=== PATIENT | female | born 1970 | race American Indian/Alaskan Native ===

== ENCOUNTER 2016-09-22 14:14 | Inpatient (IN) | payer OTHER, SELFPAY ==
[~2016-09-22 14:14] MED LIST: NACL 0.9% 1000 ML 1,000 ML ONE; ZOFRAN ONE
[2016-09-22] MEDS ORDERED: NACL 0.9% 1000 ML 1,000 ML IV ONE ×3 (14:30→15:22)
[2016-09-22] MEDS ORDERED: ZOFRAN IV ONE (14:33)
--- NOTE | 2016-09-22 14:34 | Emergency Department Report ---
ED Altered Mental Status HPI - General Chief Complaint: Hyperglycemia Stated Complaint: UNRESPONSIVE Time Seen by Provider: 09/22/16 14:28 Source: EMS Mode of arrival: Stretcher Limitations: Altered Mental Status - History of Present Illness MD Complaint: altered mental status, confusion, decreased responsiveness, weakness Onset/Timin -: Gradual, days(s) Severity: severe Consistency of Symptoms: constant Context: alcohol abuse, diabetes Associated Symptoms: malaise, nausea/vomiting. denies: chest pain, cough, diaphoresis, fever/chills, headaches, rash, seizure, shortness of breath, syncope, foul smelling urine, difficulty walking Treatments Prior to Arrival: IV fluid - Related Data Home Medications Medication Instructions Recorded Confirmed Last Taken Insulin NPH/Regular [Novolin 70/30] 10 unit SQ BIDDIAB 03/26/14 03/26/14 Previous Rx's Medication Instructions Recorded Last Taken Type Insulin NPH/Regular [NovoLIN 70/30] 30 unit SUB-Q BIDDIAB #7 ml 03/31/14 Unknown Rx Lisinopril [Zestril TAB] 10 mg PO QDAY #30 tablet 03/31/14 Unknown Rx Allergies Allergy/AdvReac Type Severity Reaction Status Date / Time No Known Allergies Allergy Verified 03/26/14 03:17 ED Review of Systems ROS: Stated complaint: UNRESPONSIVE Other details as noted in HPI Comment: Unobtainable due to pts medical conditions Constitutional: denies: chills, fever Eyes: denies: eye pain, eye discharge, vision change ENT: denies: ear pain, throat pain Respiratory: denies: cough, shortness of breath, wheezing Cardiovascular: denies: chest pain, palpitations Endocrine: no symptoms reported Gastrointestinal: denies: abdominal pain, nausea, diarrhea Genitourinary: denies: urgency, dysuria, discharge Musculoskeletal: denies: back pain, joint swelling, arthralgia Skin: denies: rash, lesions Neurological: denies: headache, weakness, paresthesias Psychiatric: denies: anxiety, depression Hematological/Lymphatic: denies: easy bleeding, easy bruising ED Past Medical Hx - Past Medical History Hx Hypertension: Yes Hx Congestive Heart Failure: No Hx Diabetes: Yes Hx Sickle Cell Disease: No Hx Asthma: No Hx COPD: No Hx HIV: No - Social History Smoking Status: Never Smoker - Medications Home Medications: Home Medications Medication Instructions Recorded Confirmed Last Taken Type Insulin NPH/Regular [Novolin 70/30] 10 unit SQ BIDDIAB 03/26/14 03/26/14 History Insulin NPH/Regular [NovoLIN 70/30] 30 unit SUB-Q BIDDIAB #7 ml 03/31/14 Unknown Rx Lisinopril [Zestril TAB] 10 mg PO QDAY #30 tablet 03/31/14 Unknown Rx ED Physical Exam - General Limitations: Altered Mental Status General appearance: lethargic, obtunded, in distress - Head Head exam: Present: atraumatic - Eye Eye exam: Present: normal appearance, PERRL - ENT ENT exam: Present: mucous membranes dry - Neck Neck exam: Present: normal inspection - Respiratory Respiratory exam: Present: normal lung sounds bilaterally. Absent: respiratory distress, wheezes, rales, rhonchi, chest wall tenderness, accessory muscle use, decreased breath sounds - Cardiovascular Cardiovascular Exam: Present: tachycardia - GI/Abdominal GI/Abdominal exam: Present: soft, tenderness. Absent: distended, guarding, rebound, rigid - Back Exam Back exam: Present: normal inspection - Skin Skin exam: Present: dry ED Course Vital Signs 09/22/16 09/22/16 09/22/16 14:13 14:20 14:25 Temperature 91.6 F L Pulse Rate 106 H 106 H Respiratory 20 23 31 H Rate Blood Pressure 88/49 90/50 90/50 O2 Sat by Pulse Oximetry 09/22/16 09/22/16 09/22/16 14:29 14:30 14:40 Temperature Pulse Rate 105 H 105 H Respiratory 26 H 29 H 33 H Rate Blood Pressure 90/50 101/47 O2 Sat by Pulse 99 100 Oximetry 09/22/16 15:48 Temperature Pulse Rate 101 H Respiratory 21 Rate Blood Pressure 90/53 O2 Sat by Pulse 100 Oximetry - Lab Data Result diagrams: 09/22/16 14:34 09/22/16 15:49 Lab Results 09/22/16 09/22/16 09/22/16 Range/Units 14:31 14:34 14:34 WBC 7.8 (4.5-11.0) K/mm3 RBC 1.62 L (3.65-5.03) M/mm3 Hgb 4.4 L* (10.1-14.3) gm/dl Hct 15.4 L* (30.3-42.9) % MCV 95 (79-97) fl MCH 27 L (28-32) pg MCHC 28 L (30-34) % RDW 19.9 H (13.2-15.2) % Plt Count 172 (140-440) K/mm3 Swisher % (Auto) 7.1 (0.0-7.3) % Eos % (Auto) 0.0 (0.0-4.3) % Swisher # 0.6 (0.0-0.8) K/mm3 Add Manual Diff Complete Total Counted 100 Seg Neutrophils % [place] Firer/Fireman Seg Neuts % (Manual) 90.0 H (40.0-70.0) % Band Neutrophils % 10.0 % Lymphocytes % (Manual) 0 L (13.4-35.0) % Reactive Lymphs % (Man) 0 % Monocytes % (Manual) 0 (0.0-7.3) % Eosinophils % (Manual) 0 (0.0-4.3) % Basophils % (Manual) 0 (0.0-1.8) % Metamyelocytes % 0 % Myelocytes % 0 % Promyelocytes % 0 % Blast Cells % 0 % Nucleated RBC % 1.0 H (0.0-0.9) % Seg Neutrophils # Man 7.0 (1.8-7.7) K/mm3 Band Neutrophils # 0.8 K/mm3 Lymphocytes # (Manual) 0.0 L (1.2-5.4) K/mm3 Abs React Lymphs (Man) 0.0 K/mm3 Monocytes # (Manual) 0.0 (0.0-0.8) K/mm3 Eosinophils # (Manual) 0.0 (0.0-0.4) K/mm3 Basophils # (Manual) 0.0 (0.0-0.1) K/mm3 Metamyelocytes # 0.0 K/mm3 Myelocytes # 0.0 K/mm3 Promyelocytes # 0.0 K/mm3 Blast Cells # 0.0 K/mm3 WBC Morphology Not Reportable Hypersegmented Neuts Not Reportable Hyposegmented Neuts Not Reportable Hypogranular Neuts Not Reportable Smudge Cells Not Reportable Toxic Granulation Not Reportable Toxic Vacuolation Not Reportable Dohle Bodies Not Reportable Pelger-Huet Anomaly Not Reportable Mary Rods Not Reportable Platelet Estimate Consistent w auto Clumped Platelets Not Reportable Plt Clumps, EDTA Not Reportable Large Platelets 1+ Giant Platelets Not Reportable Platelet Satelliting Not Reportable Plt Morphology Comment Not Reportable RBC Morphology Not Reportable Dimorphic RBCs Not Reportable Polychromasia Not Reportable Hypochromasia Not Reportable Poikilocytosis 1+ Anisocytosis 1+ Microcytosis Not Reportable Macrocytosis Not Reportable Spherocytes Not Reportable Pappenheimer Bodies Not Reportable Sickle Cells Not Reportable Target Cells Not Reportable Tear Drop Cells Not Reportable Ovalocytes Not Reportable Helmet Cells Not Reportable [place] Bodies Not Reportable Lagrange Rings Not Reportable Jerri Cells Not Reportable Bite Cells Not Reportable Crenated Cell Not Reportable Elliptocytes Not Reportable Acanthocytes (Spur) Not Reportable Rouleaux Not Reportable Hemoglobin C Crystals Not Reportable Schistocytes Not Reportable Malaria parasites Not Reportable Michael Bodies Not Reportable Hem Pathologist Commnt No PT (12.2-14.9) Sec. INR (0.87-1.13) APTT (24.2-36.6) Sec. VBG pH (7.320-7.420) Sodium 146 H (137-145) mmol/L Potassium 3.0 L (3.6-5.0) mmol/L Chloride 117.5 H (98-107) mmol/L Carbon Dioxide 3 L* (22-30) mmol/L Anion Gap 29 mmol/L BUN 70 H (7-17) mg/dL Creatinine 2.9 H (0.7-1.2) mg/dL Estimated GFR 21 ml/min BUN/Creatinine Ratio 24.13 % Glucose 948 H* (65-100) mg/dL POC Glucose > 500 H (70-105) Lactic Acid (0.7-2.0) mmol/L Calcium 3.5 L* (8.4-10.2) mg/dL Phosphorus (2.5-4.5) mg/dL Magnesium (1.7-2.3) mg/dL TSH (0.270-4.200) mlU/mL Urine Color (Yellow) Urine Turbidity (Clear) Urine pH (5.0-7.0) Ur Specific Golden (1.003-1.030) Urine Protein (Negative) mg/dL Urine Glucose (UA) (Negative) mg/dL Urine Ketones (Negative) mg/dL Urine Blood (Negative) Urine Nitrite (Negative) Urine Bilirubin (Negative) Urine Urobilinogen (<2.0) mg/dL Ur Leukocyte Esterase (Negative) Urine WBC (Auto) (0.0-6.0) /HPF Urine RBC (Auto) (0.0-6.0) /HPF U Epithel Cells (Auto) (0-13.0) /HPF Urine Opiates Screen Urine Methadone Screen Ur Barbiturates Screen Ur Phencyclidine Scrn Ur Amphetamines Screen U Benzodiazepines Scrn Urine Cocaine Screen U Marijuana (THC) Screen Drugs of Abuse Note 09/22/16 09/22/16 09/22/16 Range/Units 14:34 14:34 15:05 WBC (4.5-11.0) K/mm3 RBC (3.65-5.03) M/mm3 Hgb (10.1-14.3) gm/dl Hct (30.3-42.9) % MCV (79-97) fl MCH (28-32) pg MCHC (30-34) % RDW (13.2-15.2) % Plt Count (140-440) K/mm3 Swisher % (Auto) (0.0-7.3) % Eos % (Auto) (0.0-4.3) % Swisher # (0.0-0.8) K/mm3 Add Manual Diff Total Counted Seg Neutrophils % Seg Neuts % (Manual) (40.0-70.0) % Band Neutrophils % % Lymphocytes % (Manual) (13.4-35.0) % Reactive Lymphs % (Man) % Monocytes % (Manual) (0.0-7.3) % Eosinophils % (Manual) (0.0-4.3) % Basophils % (Manual) (0.0-1.8) % Metamyelocytes % % Myelocytes % % Promyelocytes % % Blast Cells % % Nucleated RBC % (0.0-0.9) % Seg Neutrophils # Man (1.8-7.7) K/mm3 Band Neutrophils # K/mm3 Lymphocytes # (Manual) (1.2-5.4) K/mm3 Abs React Lymphs (Man) K/mm3 Monocytes # (Manual) (0.0-0.8) K/mm3 Eosinophils # (Manual) (0.0-0.4) K/mm3 Basophils # (Manual) (0.0-0.1) K/mm3 Metamyelocytes # K/mm3 Myelocytes # K/mm3 Promyelocytes # K/mm3 Blast Cells # K/mm3 WBC Morphology Hypersegmented Neuts Hyposegmented Neuts Hypogranular Neuts Smudge Cells Toxic Granulation Toxic Vacuolation Dohle Bodies Pelger-Huet Anomaly Mary Rods Platelet Estimate Clumped Platelets Plt Clumps, EDTA Large Platelets Giant Platelets Platelet Satelliting Plt Morphology Comment RBC Morphology Dimorphic RBCs Polychromasia Hypochromasia Poikilocytosis Anisocytosis Microcytosis Macrocytosis Spherocytes Pappenheimer Bodies Sickle Cells Target Cells Tear Drop Cells Ovalocytes Helmet Cells [place] Bodies Lagrange Rings Jerri Cells Bite Cells Crenated Cell Elliptocytes Acanthocytes (Spur) Rouleaux Hemoglobin C Crystals Schistocytes Malaria parasites Michael Bodies Hem Pathologist Commnt PT 19.3 H (12.2-14.9) Sec. INR 1.63 H (0.87-1.13) APTT 28.9 (24.2-36.6) Sec. VBG pH 7.038 L* (7.320-7.420) Sodium (137-145) mmol/L Potassium (3.6-5.0) mmol/L Chloride (98-107) mmol/L Carbon Dioxide (22-30) mmol/L Anion Gap mmol/L BUN (7-17) mg/dL Creatinine (0.7-1.2) mg/dL Estimated GFR ml/min BUN/Creatinine Ratio % Glucose (65-100) mg/dL POC Glucose (70-105) Lactic Acid 1.2 (0.7-2.0) mmol/L Calcium (8.4-10.2) mg/dL Phosphorus (2.5-4.5) mg/dL Magnesium (1.7-2.3) mg/dL TSH (0.270-4.200) mlU/mL Urine Color (Yellow) Urine Turbidity (Clear) Urine pH (5.0-7.0) Ur Specific Golden (1.003-1.030) Urine Protein (Negative) mg/dL Urine Glucose (UA) (Negative) mg/dL Urine Ketones (Negative) mg/dL Urine Blood (Negative) Urine Nitrite (Negative) Urine Bilirubin (Negative) Urine Urobilinogen (<2.0) mg/dL Ur Leukocyte Esterase (Negative) Urine WBC (Auto) (0.0-6.0) /HPF Urine RBC (Auto) (0.0-6.0) /HPF U Epithel Cells (Auto) (0-13.0) /HPF Urine Opiates Screen Urine Methadone Screen Ur Barbiturates Screen Ur Phencyclidine Scrn Ur Amphetamines Screen U Benzodiazepines Scrn Urine Cocaine Screen U Marijuana (THC) Screen Drugs of Abuse Note 09/22/16 09/22/16 09/22/16 Range/Units 15:05 15:23 15:23 WBC (4.5-11.0) K/mm3 RBC (3.65-5.03) M/mm3 Hgb (10.1-14.3) gm/dl Hct (30.3-42.9) % MCV (79-97) fl MCH (28-32) pg MCHC (30-34) % RDW (13.2-15.2) % Plt Count (140-440) K/mm3 Swisher % (Auto) (0.0-7.3) % Eos % (Auto) (0.0-4.3) % Swisher # (0.0-0.8) K/mm3 Add Manual Diff Total Counted Seg Neutrophils % Seg Neuts % (Manual) (40.0-70.0) % Band Neutrophils % % Lymphocytes % (Manual) (13.4-35.0) % Reactive Lymphs % (Man) % Monocytes % (Manual) (0.0-7.3) % Eosinophils % (Manual) (0.0-4.3) % Basophils % (Manual) (0.0-1.8) % Metamyelocytes % % Myelocytes % % Promyelocytes % % Blast Cells % % Nucleated RBC % (0.0-0.9) % Seg Neutrophils # Man (1.8-7.7) K/mm3 Band Neutrophils # K/mm3 Lymphocytes # (Manual) (1.2-5.4) K/mm3 Abs React Lymphs (Man) K/mm3 Monocytes # (Manual) (0.0-0.8) K/mm3 Eosinophils # (Manual) (0.0-0.4) K/mm3 Basophils # (Manual) (0.0-0.1) K/mm3 Metamyelocytes # K/mm3 Myelocytes # K/mm3 Promyelocytes # K/mm3 Blast Cells # K/mm3 WBC Morphology Hypersegmented Neuts Hyposegmented Neuts Hypogranular Neuts Smudge Cells Toxic Granulation Toxic Vacuolation Dohle Bodies Pelger-Huet Anomaly Mary Rods Platelet Estimate Clumped Platelets Plt Clumps, EDTA Large Platelets Giant Platelets Platelet Satelliting Plt Morphology Comment RBC Morphology Dimorphic RBCs Polychromasia Hypochromasia Poikilocytosis Anisocytosis Microcytosis Macrocytosis Spherocytes Pappenheimer Bodies Sickle Cells Target Cells Tear Drop Cells Ovalocytes Helmet Cells [place] Bodies Lagrange Rings [place] Cells Bite Cells Crenated Cell Elliptocytes Acanthocytes (Spur) Rouleaux Hemoglobin C Crystals Schistocytes Malaria parasites Michael Bodies Hem Pathologist Commnt PT (12.2-14.9) Sec. INR (0.87-1.13) APTT (24.2-36.6) Sec. VBG pH (7.320-7.420) Sodium (137-145) mmol/L Potassium (3.6-5.0) mmol/L Chloride (98-107) mmol/L Carbon Dioxide (22-30) mmol/L Anion Gap mmol/L BUN (7-17) mg/dL Creatinine (0.7-1.2) mg/dL Estimated GFR ml/min BUN/Creatinine Ratio % Glucose (65-100) mg/dL POC Glucose (70-105) Lactic Acid (0.7-2.0) mmol/L Calcium (8.4-10.2) mg/dL Phosphorus (2.5-4.5) mg/dL Magnesium (1.7-2.3) mg/dL TSH 0.404 (0.270-4.200) mlU/mL Urine Color Straw (Yellow) Urine Turbidity Clear (Clear) Urine pH 8.0 H (5.0-7.0) Ur Specific Golden 1.026 (1.003-1.030) Urine Protein 100 mg/dl (Negative) mg/dL Urine Glucose (UA) 150 (Negative) mg/dL Urine Ketones 20 (Negative) mg/dL Urine Blood Neg (Negative) Urine Nitrite Neg (Negative) Urine Bilirubin Neg (Negative) Urine Urobilinogen < 2.0 (<2.0) mg/dL Ur Leukocyte Esterase Neg (Negative) Urine WBC (Auto) < 1.0 (0.0-6.0) /HPF Urine RBC (Auto) 3.0 (0.0-6.0) /HPF U Epithel Cells (Auto) < 1.0 (0-13.0) /HPF Urine Opiates Screen Presumptive negative Urine Methadone Screen Presumptive negative Ur Barbiturates Screen Presumptive negative Ur Phencyclidine Scrn Presumptive negative Ur Amphetamines Screen Presumptive negative U Benzodiazepines Scrn Presumptive negative Urine Cocaine Screen Presumptive negative U Marijuana (THC) Screen Presumptive positive Drugs of Abuse Note Disclamer 09/22/16 09/22/16 Range/Units 15:49 15:49 WBC (4.5-11.0) K/mm3 RBC (3.65-5.03) M/mm3 Hgb (10.1-14.3) gm/dl Hct (30.3-42.9) % MCV (79-97) fl MCH (28-32) pg MCHC (30-34) % RDW (13.2-15.2) % Plt Count (140-440) K/mm3 Swisher % (Auto) (0.0-7.3) % Eos % (Auto) (0.0-4.3) % Swisher # (0.0-0.8) K/mm3 Add Manual Diff Total Counted Seg Neutrophils % Seg Neuts % (Manual) (40.0-70.0) % Band Neutrophils % % Lymphocytes % (Manual) (13.4-35.0) % Reactive Lymphs % (Man) % Monocytes % (Manual) (0.0-7.3) % Eosinophils % (Manual) (0.0-4.3) % Basophils % (Manual) (0.0-1.8) % Metamyelocytes % % Myelocytes % % Promyelocytes % % Blast Cells % % Nucleated RBC % (0.0-0.9) % Seg Neutrophils # Man (1.8-7.7) K/mm3 Band Neutrophils # K/mm3 Lymphocytes # (Manual) (1.2-5.4) K/mm3 Abs React Lymphs (Man) K/mm3 Monocytes # (Manual) (0.0-0.8) K/mm3 Eosinophils # (Manual) (0.0-0.4) K/mm3 Basophils # (Manual) (0.0-0.1) K/mm3 Metamyelocytes # K/mm3 Myelocytes # K/mm3 Promyelocytes # K/mm3 Blast Cells # K/mm3 WBC Morphology Hypersegmented Neuts Hyposegmented Neuts Hypogranular Neuts Smudge Cells Toxic Granulation Toxic Vacuolation Dohle Bodies Pelger-Huet Anomaly Mary Rods Platelet Estimate Clumped Platelets Plt Clumps, EDTA Large Platelets Giant Platelets Platelet Satelliting Plt Morphology Comment RBC Morphology Dimorphic RBCs Polychromasia Hypochromasia Poikilocytosis Anisocytosis Microcytosis Macrocytosis Spherocytes Pappenheimer Bodies Sickle Cells Target Cells Tear Drop Cells Ovalocytes Helmet Cells [place] Bodies [place] Rings Jerri Cells Bite Cells Crenated Cell Elliptocytes Acanthocytes (Spur) Rouleaux Hemoglobin C Crystals Schistocytes Malaria parasites Michael Bodies Hem Pathologist Commnt PT (12.2-14.9) Sec. INR (0.87-1.13) APTT (24.2-36.6) Sec. VBG pH (7.320-7.420) Sodium 143 (137-145) mmol/L Potassium 5.2 H D (3.6-5.0) mmol/L Chloride 103.1 (98-107) mmol/L Carbon Dioxide 5 L* (22-30) mmol/L Anion Gap 40 mmol/L BUN 102 H (7-17) mg/dL Creatinine 4.6 H D (0.7-1.2) mg/dL Estimated GFR 12 ml/min BUN/Creatinine Ratio 22.17 % Glucose 1405 H* (65-100) mg/dL POC Glucose (70-105) Lactic Acid (0.7-2.0) mmol/L Calcium 5.9 L* D (8.4-10.2) mg/dL Phosphorus 4.2 (2.5-4.5) mg/dL Magnesium 1.6 L (1.7-2.3) mg/dL TSH (0.270-4.200) mlU/mL Urine Color (Yellow) Urine Turbidity (Clear) Urine pH (5.0-7.0) Ur Specific Golden (1.003-1.030) Urine Protein (Negative) mg/dL Urine Glucose (UA) (Negative) mg/dL Urine Ketones (Negative) mg/dL Urine Blood (Negative) Urine Nitrite (Negative) Urine Bilirubin (Negative) Urine Urobilinogen (<2.0) mg/dL Ur Leukocyte Esterase (Negative) Urine WBC (Auto) (0.0-6.0) /HPF Urine RBC (Auto) (0.0-6.0) /HPF U Epithel Cells (Auto) (0-13.0) /HPF Urine Opiates Screen Urine Methadone Screen Ur Barbiturates Screen Ur Phencyclidine Scrn Ur Amphetamines Screen U Benzodiazepines Scrn Urine Cocaine Screen U Marijuana (THC) Screen Drugs of Abuse Note - EKG Data -: EKG Interpreted by Me EKG shows normal: sinus rhythm Interpretation: no acute changes - Radiology Data Radiology results: report reviewed, image reviewed - Medical Decision Making Patient doing better , severe acidemia with DKA and severe anemia , giving fluids and blood products , insulin after we were able to increase her initial K +, Maintaining her airway , breathing on her own, will need admission to ICU Critical Care Time: Yes Critical care time in (mins) excluding proc time.: 45 Critical care attestation.: If time is entered above; I have spent that time in minutes in the direct care of this critically ill patient, excluding procedure time. ED Disposition Clinical Impression: DKA (diabetic ketoacidoses), Tachycardia, SIRS (systemic inflammatory response syndrome) Disposition: OP ADMITTED IP TO THIS HOSP Is pt being admited?: Yes Does the pt Need Aspirin: No Condition: Critical Instructions: Diabetes Mellitus Type 2 in Adults (ED) Time of Disposition: 16:41
--- NOTE | 2016-09-22 14:44 | Admit Criteria Form ---
Admission Criteria Documentation: INTENSIVE CARE UNIT ADMISSION Intensive Care Admission Guidelines ( Place 'X' for any and all applicable criteria): Admission to ICU may be indicated when need is demonstrated by ANY ONE of the following (1)(2)(3)(4)(5)(6)(7)(8)(9) : [ ]I. Vital sign abnormalities, including ANY ONE of the following: [ ]a) Systolic arterial pressure less than 90 mm Hg, or 20 mm Hg below the patient's usual pressure [ ]b) Diastolic arterial pressure greater than 120 mm Hg [ ]c) Mean arterial pressure less than 70 mm Hg [A] [ ]d) Pulse less than 40 or greater than 140 beats per minute (in adult) [ ]e) Respiratory rate greater than 35 or less than 8 breaths per minute [ X]II. Laboratory findings (new), including ANY ONE of the following (10): [ ]a) Saturation of arterial oxygen less than 88% or partial pressure of oxygen less than 60 mm Hg (8.0 kPa) despite oxygen supplementation [ ]b) Rising partial pressure of carbon dioxide with respiratory acidosis [X ]c) pH less than 7.2 or greater than 7.65 [X ]d) Serum glucose greater than 800 mg/dL (44.4 mmol/L) [ ]e) Serum sodium less than 110 mEq/L (mmol/L) or greater than 160 mEq/L (mmol/L) [ ]f) Serum potassium less than 2 mEq/L (mmol/L) or greater than 7 mEq /L (mmol/L) [ ]g) Serum calcium greater than 15 mg/dL (3.75 mmol/L) [ ]h) Serum phosphorus less than 1 mg/dL (0.32 mmol/L) [ ]i) Toxic drug level or poisoning causing or likely to cause neurologic or Hemodynamic instability [ ]j) Less severe laboratory abnormalities contributing to ANY ONE of the following: [ ]i) Seizure [ ]ii) Altered mental status [ ]iii) Muscle weakness [ ]iv) Arrhythmias [ ]v) Hemodynamic instability [ ]vi) Other significant clinical manifestations [ ]III. Electrocardiogram (or cardiac monitoring) findings, including ANY ONE of the following: [ ]a) Inherently unstable or life-threatening arrhythmia (eg, sustained ventricular tachycardia, ventricular fibrillation, asystole) [ ]b) Arrhythmia causing severe hypotension (eg, bradycardia, tachycardia) [ ]c) Complete heart block causing severe hypotension [ ]d) Other findings indicative of a need for intensive care (eg , [place]) [ ]IV.Physical findings, including ANY ONE of the following: [ ]a) Threatened airway [ ]b) Sudden altered mental status [ ]c) Repeated or prolonged seizures [ ]d) Coma [ ]e) New-onset anuria (urine output <0.1 mL/kg/hr over 4 h) [ ]f) Cyanosis (new) [ ]g) Cardiac tamponade [ ]h) Status post respiratory or cardiac arrest [ ]i) Severe joseph (eg, partial thickness joseph over more than 10% of body surface, third-degree joseph) [ ]j) Findings consistent with abdominal emergency (eg, peritoneal signs) [ ]V.Imaging findings, such as dissecting aneurysm or ruptured viscus [ ].Specific intervention or monitoring needed, as indicated by ANY ONE of the following: [ ]a) New need for assisted ventilation, invasive or noninvasive(11) [ ]b) New need for intubation (eg, to protect airway) [ ]c) New tracheostomy (less than 48 hours old) [ ]d) Hourly vital signs or neurologic checks [ ]e) Pulmonary artery line monitoring needed [ ]f) Continuous arterial line monitoring needed [ ]g) Continuous IV vasoactive drugs [ ]h) Continuous IV antiarrhythmics [ ]i) Large volume IV fluid resuscitation (eg, greater than 6 L per day ) [ ]j) Large or rapid transfusion needs (eg, more than 6 units within 24 hours) [ ]k) High-risk IV treatment, such as bolus IV medicatns or mannitol infusion [ ]l) Acute cardiac pacing [ ]m) Intra-aortic balloon pump [ ]n) Ventricular assist device [ ]o) Cardioversion [ ]p) Pericardiocentesis [ ]q) Hemodialysis in unstable patient [ ]r) Continuous renal replacement therapy (eg, continuous veno-venous hemofiltration) [ ]s) Peritoneal dialysis initiation [ ]t) Emergency bronchoscopic therapy (eg, for hemoptysis) [ ]u) Emergency endoscopic therapy for bleeding [ ]v) Balloon tamponade for variceal bleeding [ ]w) Intracranial pressure monitoring or tissue oxygen monitoring [ ]x) Ventriculostomy monitoring [ ]y) Treatment of ongoing seizures [ ]z) Induced hypothermia or coma [ ]aa) Ongoing frequent testing and treatment for acute conditions, including ANY ONE of the following: [ ]i) Correction of severe metabolic acidosis/ alkalosis [ ]ii). Severe fluid overload [ ]iii) Cerebral edema [ ]iv) Monitoring or suctioning for respiratory insufficiency or acidosis [ ]v) Monitoring for active bleeding [ ]bb) Rapid desensitization for high-risk hypersensitivity reaction to required medication (eg, penicillin)(12) [ ]cc) Other need for treatment or monitoring not available outside the ICU [ ]VII.Cardiology diagnoses or procedures, including ANY ONE of the following (13)(14)(15)(16)(17): [ ]a) Chest pain with ANY ONE of the following: [ ]i) Hemodynamic instability [ ]ii) Suspicion of diagnoses needing ICU care (eg, aortic dissection) [ ]iii) New unstable or symptomatic arrhythmia or ECG finding (eg, ventricular tachycardia, ventricular fibrillation, advanced heart block) [ ]iv) Syncope or near-syncope [ ]v) SBP less than 100 mm Hg [ ]vi) Pulmonary edema thought to be due to ischemia [ ]vii) New or worsening mitral regurgitation murmur, S3 , or rales [ ]b) Acute [place] with complications as indicated by ANY ONE of the following: [ ]i) Persistent chest pain [ ]ii) Hemodynamic instability [ ]iii) New unstable or symptomatic arrhythmia or ECG finding (eg, ventricular tachycardia, ventricular fibrillation, advanced heart block) [ ]iv) Syncope or near-syncope [ ]v) Pulmonary edema thought to be due to ischemia [ ]vi) New or worsening mitral regurgitation murmur, S3 , or rales [ ]vii) New-onset bundle branch block [ ]viii) Hemorrhagic complication (eg, intracranial or access site bleed following thrombolysis) [ ]c) Cardiac arrhythmia or conduction defect with Hemodynamic instability [ ]d) Complication of cardiac ablation, including ANY ONE of the following(18): [ ]i) Pericardial tamponade [ ]ii) Hemodynamic instability [ ]iii) Thromboembolic stroke [ ]iv) Aortic valve injury [ ]v) Vascular injuries [ ]vi) Esophageal perforation [ ]vii) Severe arrhythmia [ ]viii) Air embolism [ ]ix) Other severe complication [ ]e) Cardiogenic shock [ ]f) Hypertensive emergency, with need for ANY ONE of the following(19): [ ]i) IV antihypertensive therapy [ ]ii) Invasive hemodynamic monitoring (eg, arterial line) [ ]g) Pericardial tamponade [ ]h) Severe heart failure, with ANY ONE of the following(15): [ ]i) Respiratory failure [ ]ii) Cardiogenic shock [ ]iii) Severe arrhythmias [ ]iv) Evidence of cardiac ischemia [ ]i Myocarditis, with ANY ONE of the following [ ]i) Hemodynamic instability [ ]ii) Respiratory failure [ ]iii) Severe arrhythmias [ ]iv) Need for cardiac assist device (eg, left ventricular assist device or extracorporeal membrane oxygenator) [ ]j) Status post cardiac arrest(20) [ ]VIII. Cardiovascular Surgery diagnoses or procedures, including ANY ONE of the following.(21)(22): [ ]a) Acute aortic dissection [ ]b) Aortic surgery for ANY ONE of the following: [ ]i) Thoracic aneurysm [ ]ii) Abdominal aneurysm with ANY ONE of the following(23): [ ]1) Emergency repair [ ]2) Severe cardiopulmonary disease [ ]3) Dialysis-dependent renal failure [ ]4) Need for IV blood pressure control [ ]5) Need for ongoing ventilatory support [ ]6) Perioperative complications, including ANY ONE of the following: [ ]A. Sustained Hemodynamic instability [ ]B. Cardiac ischemia or arrhythmia [ ]C. Hypothermia (less than 35 degrees C (95 degrees F)) [ ]D. Blood transfusion greater than 3 L [ ]iii) Aortic coarctation operative excision or repair [ ]iv) Aortofemoral or aortoiliac bypass with ANY ONE of the following: [ ]1) Continued intubation [ ]2) Hemodynamic instability [ ]3) Need for IV blood pressure control [ ]4) Severe cardiopulmonary disease [ ]c) Cardiac surgery [ ]d) Carotid endarterectomy or stent placement with ANY ONE of the following: [ ]i) Blood pressure <100/60 mm Hg or >160/90 mm Hg despite 4 h of postanesthetic management [ ]ii) New or progressive neurologic defect [ ]iii) Chest pain [ ]iv) Continued intubation [ ]v) Heart failure [ ]vi) Airway compromise by hematoma or vocal cord paralysis [ ]vi) Need for IV blood pressure control [ ]e) Heart transplant [ ]f) Infrainguinal peripheral vascular surgery with ANY ONE of the following: [ ]i) Hemodynamic instability [ ]ii) Acute complications such as persistent chest pain or respiratory distress [ ]iii) Requirement for IV antiarrhythmic or vasoactive agent [ ]iv) Requirement for pulmonary artery catheter [ ]v) Severe hypertension despite 6 hours of recovery room management [ ]g) Complications of any surgery requiring ICU intervention as indicated by ANY ONE of the following(24): [ ]i) Hemodynamic instability [ ]ii) Myocardial infarction with complications (eg, severe arrhythmia, hypotension) [ ]iii) Excessive bleeding or severe coagulopathy [ ]iv) Respiratory failure [ ]v) Renal failure [ ]vi) Airway instability or obstruction [ ]vii) Neurologic deterioration [ ]viii) Infection with likelihood of sepsis syndrome or significant fluid shifts [X ]IX.Endocrinology diagnoses or procedures, including ANY ONE of the following(25)(26): [ ]a) Adrenal crisis with Hemodynamic instability(27) [ ]b) Pheochromocytoma with ANY ONE of the following(28): [ ]i) Hypertensive crisis [ ]ii) Postoperative Hemodynamic instability [ ]iii) Need for IV vasoactive therapy [ ]iv) Need for invasive arterial or central venous pressure monitoring [ ]v) Organ ischemia [ ]c) Diabetic hyperosmolar state with obtundation or coma [X ]d) Diabetic ketoacidosis with ANY ONE of the following: [X ]i) Serum pH less than 7.10 or bicarbonate level less than 10 mEq/L (mmol/L) [ ]ii) Rapidly changing electrolytes [ ]iii) Hypotension [ ]iv) Requirement for large-volume fluid resuscitation [ ]v) Respiratory insufficiency [ ]vi) Life-threatening cardiac dysrhythmias [ ]vii) Obtundation [ ]viii) Severe precipitating condition such as sepsis, stroke, or acute [place] [ ]e) Severe hypoglycemia requiring continuous glucose infusion with frequent adjustment or glucagon infusion [ ]f) Hyperthyroidism associated with thyroid storm (also known as thyrotoxic crisis)(29) [ ]g) Myxedema with life-threatening neurologic, cardiovascular, electrolyte, or renal dysfunction(29) [ ]h) Diabetes insipidus that cannot be controlled with routine medication (30) [ ]X. Gastroenterology diagnoses or procedures, including ANY ONE of the following: [ ]a) Esophageal perforation(31) [ ]b) Severe caustic esophageal injury(31) [ ]c) Liver disease complications with ANY ONE of the following(32): [ ]i) Severe hepatic encephalopathy (eg, stage 3 (somnolent) or higher) [ ]ii) Type 1 hepatorenal syndrome [ ]iii) Other cirrhosis-associated causes of acute renal failure ( eg, severe hypovolemia, acute tubular necrosis, abdominal compartment syndrome) [ ]iv) Hemodynamic instability [ ]v) Respiratory insufficiency due to severe ascites [ ]vi) Sepsis due to spontaneous bacterial peritonitis [ ]d) Fulminant hepatic failure when aggressive intervention or transplant is anticipated (32) [ ]e) Gastrointestinal hemorrhage (upper or lower) with ANY ONE of the following(33)(34): [ ]i) Active ongoing bleeding [ ]ii) Transfusion requirement greater than 2 units of packed red cells [ ]iii) Bleeding ulcer or nonbleeding visible vessel seen on endoscopy [ ]iv) Bleeding ulcer, visible blood vessel, bleeding (or recently bleeding) esophageal varices seen on endoscopy [ ]v) Hypotension [ ]vi) Syncope [ ]vii) Coagulopathy [ ]viii) Hepatic cirrhosis [ ]ix) Abnormal mental status [ ]x) Unstable comorbid condition or end organ dysfunction [ ]xi) Ischemia due to poor perfusion [ ]xii) Need for hemodynamic monitoring (eg, for patients with heart failure or valvular disease) [ ]f) Severe pancreatitis indicated by ANY ONE of the following (35)(36): [ ]i) Requirement for aggressive fluid resuscitation [ ]ii) Life-threatening electrolyte abnormality [ ]iii) SBP less than 90 mm Hg [ ]iv) Persistent tachycardia greater than 120 beats per minute [ ]v) Patients at high risk of rapid deterioration, including ANY ONE of the following: [ ]1) Calculated [place] II score greater than 8 [ ]2) Age older than 55 years [ ]3) BMI greater than 30 [ ]4) Greater than 30% pancreatic necrosis on CT scan [ ]5) Admission hematocrit greater than 47% (0.47) [ ]vi) Organ failure as indicated by ANY ONE of the following: [ ]1) Serum creatinine greater than 1.9 mg/dL (168 micromoles/L) [ ]2) Requirement for mechanical ventilation [ ]3) Urine output less than 50 mL/hour [ ]4) Arterial partial pressure of oxygen less than 60 mm Hg (8.0 kPa) despite supplemental oxygen [ ]5) PiO2/FiO2 ratio less than 300 [ ]vii) Expanding pseudocyst [ ]viii) Infected pancreas [ ]ix) Pleural effusion [ ]x) Encephalopathy [ ]xi) Severe comorbidities [ ]XI. General Surgery diagnoses or procedures, including ANY ONE of the following (9)(24)(37): [ ]a) Acute abdominal catastrophe (eg, ischemic bowel, perforated viscus, abdominal compartment syndrome) [ ]b) Complications of any surgery requiring ICU intervention as indicated by ANY ONE of the following: [ ]i) Hemodynamic instability [ ]ii) [place] with complications (eg, severe arrhythmia, hypotension) [ ]iii) Excessive bleeding or severe coagulopathy [ ]iv) Respiratory failure [ ]v) Renal failure [ ]vi) Airway instability or obstruction [ ]vii) Neurologic deterioration [ ]viii) Infection with likelihood of sepsis syndrome or significant fluid shifts [ ]c) Multiple trauma with complicating features as indicated by ANY ONE of the following(38): [ ]i) Impending acute respiratory failure due to lung contusion, unstable chest wall, aspiration, or hemorrhage [ ]ii) Facial or neck injury threatening airway patency [ ]iii) Cardiac contusion [ ]iv) Pericardial effusion [ ]v) Bronchial tear [ ]vi) Hemodynamic instability [ ]vii) Rhabdomyolisis requiring large volume IV fluid resuscitation [ ]viii)Other significant complicating feature [ ]d) Organ transplant(39)(40) [ ]e) Esophagectomy(31) [ ]f) Whipple procedure [ ]g) Preoperative or postoperative patients requiring ICU intervention, such as hemodynamic optimization, pulmonary artery monitoring, mechanical ventilation, or extensive nursing care [ ]h) Obesity surgery patients with ANY ONE of the following(41): [ ]i) ICU management needs for comorbid conditions, such as sleep apnea or airway management needs [ ]ii) Failed postoperative extubation [ ]iii) Intraoperative complications [ ]XII. Nephrology diagnoses or procedures, including acute, or acute on chronic renal insufficiency with ANY ONE of the following(44)(45): [ ]a) Life-threatening electrolyte or acid-base disorder [ ]b) Acute pulmonary edema [ ]c) Hypotension or significant volume depletion [ ]d) Hypertensive emergency [ ]e) Underlying critical illness contributing to renal failure (eg, septic shock, hepatorenal syndrome) [ ]f) Need for continuous renal replacement therapy [ ]XIII. Neurology diagnoses or procedures, including ANY ONE of the following (46)(47) [B] : [ ]a) Intracranial hypertension requiring ANY ONE of the following(49 ): [ ]i) Induced barbiturate coma [ ]ii) Pharmacologic paralysis or deep sedation and mechanical ventilation [ ]iii) Intracranial pressure or cerebral perfusion pressure monitoring [ ]iv) IV mannitol or hypertonic saline [ ]v) Frequent serum osmolality measurements [ ]b) Seizures with ANY ONE of the following(50): [ ]i) Status epilepticus [ ]ii) Airway compromise requiring or likely to require mechanical ventilation [ ]iii) Severe electrolyte abnormalities causing seizures [ ]c) Progressive acute neurologic dysfunction requiring or likely to require ANY ONE of the following: [ ]i) Mechanical ventilation [ ]ii) Intracranial pressure or cerebral perfusion pressure monitoring [ ]d) Meningitis with obtundation or respiratory insufficiency [C])(51 ) [ ]e) Stroke with ANY ONE of the following(52)(53): [ ]i) Need for observation after thrombolysis [ ]ii) Altered mental status [ ]iii) Need for mechanical ventilation [ ]iv) Elevated intracranial pressure [ ]v) Hypertensive emergency [ ]vi) High risk of progressive infarction or deterioration based on CT scan or MRI [ ]vii) Hemorrhage [ ]f) Acute coma [ ]g) Acute spontaneous intracranial hemorrhage(53)(54) [ ]h) Drug ingestion with ANY ONE of the following(56)(57): [ ]i) Hemodynamic instability [ ]ii) Respiratory depression (partial pressure of carbon dioxide >45 mm Hg (6.0 kPa), new) [ ]iii) Patient requires or is likely to require mechanical ventilation. [ ]iv) Arrhythmias [ ]v) Seizures [ ]vi) Altered mental status ([place] coma scale score less than 12, new) [ ]vii) Significant risk for acute deterioration (eg, toxic level of hypotension or arrhythmia-producing drug) [ ]viii) Drug-induced hypothermia or hyperthermia [ ]ix) Increasing metabolic acidosis [ ]x) Severe hypoglycemia requiring glucose infusion with frequent adjustment or glucagon administration [ ]xi) Ongoing antidote administration (eg, continuous naloxone infusion, organophosphate toxicity treatment) [ ]xii) Emergency intervention need (eg, dialysis, hemoperfusion, restraints) [ ]i) Brain with preparation for organ donation [ ]j) Traumatic brain injury with ANY ONE of the following(55): [ ]i) Altered mental status (eg, new onset [place] coma scale score less than 10) [ ]ii) Cerebral edema [ ]iii) Cerebral hemorrhage [ ]iv) Increased intracranial pressure [ ]XIV. Neurosurgery diagnoses or procedures, including ANY ONE of the following(49)(58)(59): [ ]a) Emergency craniotomy for tumor, hematoma, or trauma [ ]b) Elective craniotomy for posterior fossa tumor [ ]c) Elective craniotomy (supratentorial) for tumor with ANY ONE of the following: [ ]i) Postoperative neurologic deficit or impaired consciousness 6 hours after completion of procedure [ ]ii) SBP less than 110 mm Hg or greater than 180 mm Hg despite therapy [ ]iii) Extensive operative blood loss [ ]iv) High anesthesia risk (eg, [place] [employer] score greater than 3 [ ]d) Craniotomy for aneurysm with ANY ONE of the following: [ ]i) Postoperative neurologic deficit or impaired consciousness 6 hours after completion of procedure [ ]ii) Preoperative Reyna-Broussard grade 3 or higher [ ]iii) SBP less than 110 mm Hg or greater than 180 mm Hg despite therapy [ ]iv) Intracranial pressure monitoring [ ]e) Acute spinal cord injury [ ]f) Subarachnoid hemorrhage [ ]g) Traumatic brain injury with ANY ONE of the following: [ ]i) Acute mental status change ([place] coma scale score less than 10) [ ]ii) CT scan showing cerebral edema or hemorrhage [ ]iii) Intracranial pressure monitoring [ ]h) Complications of any surgery requiring ICU intervention as indicated by ANY ONE of the following(60): [ ]i) Hemodynamic instability [ ]ii) [place] with complications (eg, severe arrhythmia, hypotension) [ ]iii) Excessive bleeding or severe coagulopathy [ ]iv) Respiratory failure [ ] v) Renal failure [ ]vi) Airway instability or obstruction [ ]vii) Neurologic deterioration [ ]viii) Infection with likelihood of sepsis syndrome or significant fluid shifts [ ]i) Preoperative or postoperative patients requiring ICU intervention, such as hemodynamic optimization, pulmonary artery monitoring, mechanical ventilation, or extensive nursing care [ ]XV.Obstetrics and Gynecology diagnoses or procedures, including ANY ONE of the ffg. (61)(62)(63): [ ]a) Severe peripartum condition as indicated by ANY ONE of the following: [ ]i) Eclampsia [ ]ii) Hypertensive emergency [ ]iii) HELLP syndrome (hemolysis, elevated liver enzymes, and low platelet count) [ ]iv) Pulmonary edema [ ]v) Respiratory failure [ ]vi) Pulmonary embolism [ ]vii) Anaphylactoid syndrome of (amniotic fluid embolus) [ ]viii) Ovarian hyperstimulation syndrome [D] [ ]ix) Acute fatty liver of (hepatic failure) [ ]x) Complications such as placental abruption or severe hemorrhage [ ]xi) Sepsis (eg, puerperal sepsis, chorioamnionitis, septic ) [ ]xii) cardiomyopathy with severe congestive heart failure (eg, respiratory failure, cardiogenic shock) [ ]b) Ruptured ectopic [ ]c) Complications of any surgery requiring ICU intervention as indicated by ANY ONE of the following: [ ]i) Hemodynamic instability [ ]ii) [place] with complications (eg, severe arrhythmia, hypotension) [ ]iii) Excessive bleeding or severe coagulopathy [ ]iv) Respiratory failure [ ]v) Renal failure [ ]vi) Airway instability or obstruction [ ]vii) Neurologic deterioration [ ]viii) Infection with likelihood of sepsis syndrome or significant fluid shifts [ ]d) Preoperative or postoperative patients requiring ICU intervention , such as hemodynamic optimization, pulmonary artery monitoring, mechanical ventilation, or extensive nursing care [ ]XVI.Ophthalmology diagnoses or procedures, including ANY ONE of the following (64): [ ]a) Complications of any surgery requiring ICU intervention, such as ANY ONE of the following: [ ]i) Hemodynamic instability [ ]ii) [place] with complications (eg, severe arrhythmia, hypotension) [ ]iii) Excessive bleeding or severe coagulopathy [ ]iv) Respiratory failure [ ]v) Renal failure [ ]vi) Airway instability or obstruction [ ]vii) Neurologic deterioration [ ]viii) Infection with likelihood of sepsis syndrome or significant fluid shifts [ ]b) Preoperative or postoperative patients requiring ICU intervention , such as hemodynamic optimization, pulmonary artery monitoring, mechanical ventilation, or extensive nursing care [ ]XVII.Orthopedics diagnoses or procedures, including ANY ONE of the following [phone]): [ ]a) Complications of any surgery requiring ICU intervention as indicated by ANY ONE of the following: [ ]i) Hemodynamic instability [ ]ii) [place] with complications (eg, severe arrhythmia, hypotension) [ ]iii) Excessive bleeding or severe coagulopathy [ ]iv) Respiratory failure [ ]v) Renal failure [ ]vi) Airway instability or obstruction [ ] vii) Neurologic deterioration [ ]viii) Infection with likelihood of sepsis syndrome or significant fluid shifts [ ]b) Multiple trauma with complicating features as indicated by ANY ONE of the following(38): [ ]i) Impending acute respiratory failure due to lung contusion, unstable chest wall, pneumothorax, aspiration, or hemorrhage [ ]ii) Facial or neck injury threatening airway patency [ ]iii) Cardiac contusion [ ]iv) Rhabdomyolysis requiring large volume IV fluid resuscitation [ ]v) Pericardial effusion [ ]vi) Bronchial tear [ ]vii) Hemodynamic instability [ ]viii) Other significant complicating feature [ ]c) Threatened compartment syndrome [ ]d) Severe joseph with ANY ONE of the following(68)(69)(70): [ ]i) Hypotension or requirement for aggressive fluid resuscitation [ ]ii) Respiratory insufficiency with requirement for high- flow oxygen or mechanical ventilation [ ]iii) Carbon monoxide poisoning [ ]iv) Life-threatening cardiac, renal, pulmonary, or neurologic dysfunction [ ]v) High-voltage (eg, 1000 volts or more) electrical burn [ ]vi) Requirement for frequent or intensive debridement and dressing changes; examples include: [ ]1) Partial thickness joseph greater than 10% of body surface [ ]2) [place] on face, hands, feet, genitalia, perineum , or major joints [ ]3) Third-degree joseph [ ]4) Any burn greater than 15% of body surface area [ ]vii) Inhalation lung injury [ ]viii) Concomitant trauma or other medical condition requiring ICU care [ ]e) Preoperative or postoperative patients requiring ICU intervention , such as hemodynamic optimization, pulmonary artery monitoring, mechanical ventilation, or extensive nursing care [ ]XVIII.Otolaryngology diagnoses or procedures, including ANY ONE of the following (71)(72): [ ]a) Complications of any surgery requiring ICU intervention as indicated by ANY ONE of the following: [ ]i) Hemodynamic instability [ ]ii) [place] with complications (eg, severe arrhythmia, hypotension) [ ]iii) Excessive bleeding or severe coagulopathy [ ]iv) Respiratory failure [ ]v) Renal failure [ ]vi) Airway instability or obstruction [ ]vii) Neurologic deterioration [ ]viii) Infection with likelihood of sepsis syndrome or significant fluid shifts [ ]b) Airway or hemodynamic compromise that persists after 3 hours of observation in postanesthesia care unit following nasal, palate (eg, uvulopalatopharyngoplasty or palatoplasty), or tongue surgery for sleep apnea [ ]c) Preoperative or postoperative patient requiring ICU intervention, such as hemodynamic optimization, pulmonary artery monitoring, mechanical ventilation, or extensive nursing care [ ]d) Symptomatic upper airway compromise (eg, laryngeal edema, mass) [ ]e) Other airway-compromising procedure (eg, posterior nasal packing) [ ]XIX.Thoracic Surgery and Pulmonary Disease Diagnosis or procedures, including ANY ONE of the following(6): [ ]a) Asthma with ANY ONE of the following(73)(74): [ ]i) Impending or actual respiratory arrest [ ]ii) Need for mechanical ventilation [ ]iii) Peak expiratory flow rate less than 30% of predicted or personal best [ ]iv) Peak expiratory flow rate or FEV1 less than 40% predicted after 1 hour of initial treatment [ ]v) Acidosis [ ]vi) Persistent or worsening hypoxia after initial treatment [ ]vii) Hypercapnia (eg, partial pressure of carbon dioxide greater than 43 mm Hg (5.7 kPa)) [ ]viii) Severe drowsiness, confusion, or coma [ ]ix) Requiring continuous inhaled bronchodilator [ ]b) COPD with ANY ONE of the following(75): [ ]i) Need for assisted ventilation [ ]ii) Hemodynamic instability [ ]iii) Severe dyspnea unresponsive to initial treatment [ ]iv) Change in level of consciousness [ ]v) Persistent findings despite oxygen and outpatient management, including ANY ONE of the following: [ ]1) Partial pressure of oxygen less than 40 mm Hg ( 5.3 kPa) [ ]2) Partial pressure of carbon dioxide greater than 60 mm Hg (8.0 kPa) [ ]3) pH less than 7.25 [ ]4) Worsening hypoxemia or acidosis [ ]c) Cor pulmonale with ANY ONE of the following(75)(76)(77): [ ]i) Hemodynamic instability [ ]ii) Need for IV inotropic or vasoactive agent [ ]iii) Need for invasive hemodynamic monitoring (eg, central venous, pulmonary artery, or arterial catheter) [ ]iv) Hypoxemia with partial pressure of oxygen less than 40 mm Hg (5.3 kPa) [ ]v) Worsening hypoxemia or acidosis despite oxygen therapy [ ]vi) Need for assisted ventilation [ ]vii) Need for right ventricular assist device [ ]viii) Unstable atrial tachyarrhythmia [ ]ix) Need for inhaled nitric oxide [ ]d) Aspiration pneumonia with ANY ONE of the following(78): [ ]i) Acute respiratory distress syndrome (PaO2/FiO2 ratio of 300 or less) [ ]ii) Impending or actual respiratory arrest [ ]iii) Need for invasive or noninvasive mechanical ventilation [ ]e) Pneumocystis jiroveci pneumonia with ANY ONE of the following(79): [ ]i) Impending or actual respiratory arrest [ ]ii) Hypoxia (eg, PO260 mmGh (8.0 kPa) or less despite oxygen therapy) [ ]iii) Need for invasive or noninvasive mechanical ventilation [ ]f) Pneumonia with ANY ONE of the following(80)(81)(82): [ ]i) Need for invasive or noninvasive assisted ventilation [ ]ii) Hemodynamic instability [ ]iii) Severity factors as indicated by 3 or MORE of the following: [ ]1) Respiratory rate 30 breaths per minute or greater [ ]2) PaO2/FiO2 ratio of 250 or less [ ]3) Multilobed infiltrates [ ]4) Altered mental status [ ]5) BUN 20 mg/dL (7.1 mmol/L) or greater [ ]6) WBC count less than 4000/mm3 (4 x109/L) [ ]7) Platelet count <100,000/mm3 (100 x109/L) [ ]8) Temperature less than 36 degrees C (96.8 degrees F ) [ ]9) Hypotension requiring aggressive fluid resuscitation [ ]g) Pulmonary hypertension requiring initiation of parenteral pulmonary vasodilator or trial of inhaled nitric oxide (eg, need for right heart catheterization)(76) [ ]h) Impending respiratory failure as indicated by ANY ONE of the following: [ ]i) Respiratory rate greater than 30 or partial pressure of oxygen less than 60 mm Hg (8.0 kPa) on 50% oxygen or more [ ]ii) Partial pressure of carbon dioxide greater than 45 mm Hg (6.0 kPa) with pH less than 7.35 [ ]i) Respiratory failure with ANY ONE of the following (47): [ ]i) Need for invasive or noninvasive mechanical ventilation [ ]ii) High likelihood of requiring mechanical ventilation within 24 hours [ ]iii) Observation in the first several hours immediately after extubation from mechanical ventilation [ ]iv) Need for close observation and aggressive therapy, such as suctioning, chest physiotherapy, or inhalation treatments at intervals less than 1 hour [ ]v) Pharmacologic ventilatory paralysis [ ]j) Venous thromboembolism with need for systemic or catheter- directed thrombolysis (eg, for limb-threatening thrombosis, phlegmasia cerulea dolens) (83) [ ]k) Pulmonary embolus with ANY ONE of the following(83): [ ]i) Hypotension [ ]ii) Severe hypoxia [ ]iii) Dangerous arrhythmia [ ]iv) Bleeding [ ]v) Need for systemic or catheter-directed thrombolysis [ ]l) Lobectomy or other major thoracic surgery [ ]m) Lung transplant [ ]n) Symptomatic upper airway obstruction (eg, laryngeal edema, mass) [ ]o) Massive hemoptysis [ ]p) Infection or thrombosis of an intravenous device with ANY ONE of the following(6)(84): [ ]i) Hemodynamic instability [ ]ii) Requirement for frequent hemodynamic measurements [ ]iii) Shock [ ]iv) End organ dysfunction [ ] v) Acute renal failure due to missed dialysis [ ]vi) Unstable acute complication (eg, pericardial tamponade , tension pneumothorax) [ ]q) Traumatic rib fracture or fractures with ANY ONE of the following(85): [ ]i) Injury severity score of 19 or greater [ ]ii) Respiratory insufficiency [ ]iii) Flail chest [ ]iv) Sternum fracture [ ]v) Vascular injury (eg, heart or great vessels) [ ]r) Pleural effusion with ANY ONE of the following(86): [ ]i) Respiratory insufficiency [ ]ii) Hemothorax with active ongoing bleeding [ ]iii) Hemodynamic instability [ ]iv) Unstable comorbid condition (eg, sepsis or heart failure [ ]XX. Urology diagnoses or procedures, including ANY ONE of the following ( 87)(88): [ ]a) Renal transplant [ ]b) Complications of any surgery requiring ICU intervention as indicated by ANY ONE of the following: [ ]i) Hemodynamic instability [ ]ii) [place] with complications (eg, severe arrhythmia, hypotension) [ ]iii) Excessive bleeding or severe coagulopathy [ ]iv) Respiratory failure [ ]v) Renal failure [ ]vi) Airway instability or obstruction [ ]vii) Neurologic deterioration [ ]viii) Infection with likelihood of sepsis syndrome or significant fluid shifts [ ]c) Preoperative or postoperative patients requiring ICU intervention , such as hemodynamic optimization, pulmonary artery monitoring, mechanical ventilation , or extensive nursing care [ ]XXI.Infectious Disease diagnoses or procedures, with ANY ONE of the following (6)(43): [ ]a) Hemodynamic instability [ ]b) Shock [ ]c) Requirement for frequent hemodynamic measurements (eg, arterial catheter, pulmonary artery catheter) [ ]d) Sepsis or suspected sepsis with end organ dysfunction (eg, acute kidney injury, acute respiratory distress syndrome) [ ]e) Necrotizing soft tissue infection [ ] XXII.Hematology - Oncology diagnoses or procedures, including chemotherapy administration with ANY ONE of the following(42): [ ]a) Hemodynamic instability [ ]b) Tumor lysis syndrome with ANY ONE of the following : [ ]1) Acute kidney injury [ ]2) Severe electrolyte abnormality [ ]3) Cardiac dysrhythmia [ ]XXIII. Systemic conditions, including ANY ONE of the following: [ ]a) Severe electrolyte or metabolic disturbance causing or likely to cause ANY ONE of the following(10)(89)(90): [ ]i) Life-threatening cardiac dysrhythmia [ ]ii) Respiratory insufficiency [ ]iii) Altered mental status [ ]iv) Seizures [ ]v) Hemodynamic instability [ ]vi) Muscular weakness [ ]b) Environmental injuries such as hypothermia, hyperthermia, electrical injuries, or near drowning(70)(91)(92) The original [employer] content created by [employer] has been revised. The portions of the content which have been revised are identified through the use of italic text or in bold, and [facility] has neither reviewed nor approved the modified material. All other unmodified content is copyright [employer]. Please see references footnoted in the original [facility] Admission Criteria Met: Yes
[2016-09-22 15:06] LABS: BUN/Creatinine Ratio 24.13; Chloride 117.5 mmol/L (98-107); White Blood Count 7.8 K/mm3 (4.5-11.0)
[2016-09-22 15:09] LABS: Mean Corpuscular HGB Conc 28 % (30-34); Mean Corpuscular Hemoglobin 27 pg (28-32); Mean Corpuscular Volume 95 fl (79-97); Platelet Count 172 K/mm3 (140-440); Red Blood Count 1.62 M/mm3 (3.65-5.03); Red Cell Distribution Width 19.9 % (13.2-15.2)
[2016-09-22 15:12] LABS: Calcium 3.5 mg/dL (8.4-10.2); Hematocrit 15.4 % (30.3-42.9); Hemoglobin 4.4 gm/dl (10.1-14.3)
[2016-09-22] MEDS ORDERED: D50W (25GM) IV PRN ×3 (15:22→20:33)
[2016-09-22 15:24] LABS: INR 1.63 (0.87-1.13)
[2016-09-22 15:25] LABS: Partial Thromboplastin Time 28.9 Sec. (24.2-36.6)
[2016-09-22 15:40] LABS: Urine Drugs of Abuse Note Disclamer
[2016-09-22] MEDS: KCL 10MEQ/100ML 10 MEQ/100 ML BAG IV SCH ×3 (15:43→19:11)
[2016-09-22] MEDS ORDERED: NACL 0.9% 500 ML 500 ML IV ONE (15:50)
[2016-09-22 15:55] LABS: Basophils % (Manual) 0 % (0.0-1.8); Blastocytes % (Manual) 0 %; Eosinophils % (Manual) 0 % (0.0-4.3); Total Cells Counted Percent 0
[2016-09-22 15:58] LABS: Bilirubin,Urine NEG (Negative); Blood,Urine NEG (Negative); Ketones,Urine 20 mg/dL (Negative); Leukocyte Esterase,Urine NEG (Negative); Nitrite,Urine NEG (Negative); Urobilinogen,Urine < 2.0 mg/dL (<2.0); WBC,Urine < 1.0 /HPF (0.0-6.0)
[2016-09-22 15:59] LABS: Anisocytosis 1+; Large Platelets 1+; Platelet Estimate Consistent w Auto; Poikilocytosis 1+
[2016-09-22 16:00] LABS: Diff Status Complete
[2016-09-22] MEDS ORDERED: NovoLIN R 100 UNITS in NACL 0.9% 99 ML IV SCH ×2 (16:00→21:00)
[2016-09-22 16:19] LABS: Magnesium 1.6 mg/dL (1.7-2.3); Phosphorous 4.2 mg/dL (2.5-4.5)
[2016-09-22 16:20] LABS: BUN/Creatinine Ratio 22.17; Chloride 103.1 mmol/L (98-107); Potassium 5.2 mmol/L (3.6-5.0)
[2016-09-22 16:24] LABS: Calcium 5.9 mg/dL (8.4-10.2)
[2016-09-22 17:39] LABS: BUN/Creatinine Ratio 22.29; Calcium 6.9 mg/dL (8.4-10.2); Chloride 101.8 mmol/L (98-107)
[2016-09-22 17:50] LABS: Potassium 6.1 mmol/L (3.6-5.0)
[2016-09-22] MEDS ORDERED: NACL 0.9% 250ML 250 ML ONE (18:37)
[2016-09-22] MEDS: NovoLIN R 100 UNITS in NACL 0.9% 99 ML IV SCH ×2 (20:05→22:51)
--- NOTE | 2016-09-22 20:28 | Event Note ---
Date: 09/22/16 See H/p in reports DKA HIV status Htn IDDM for 12 years
[2016-09-22] MEDS ORDERED: MILK OF MAGNESIA PO PRN (20:29)
[2016-09-22] MEDS ORDERED: DILAUDID IV PRN (20:29)
[2016-09-22] MEDS ORDERED: DULCOLAX PR PRN (20:29)
[2016-09-22] MEDS ORDERED: ALUM-MAG HYDROX-SIMETH 200-200-20MG/5ML PO PRN (20:29)
[2016-09-22] MEDS ORDERED: XANAX PO PRN (20:29)
[2016-09-22] MEDS ORDERED: TYLENOL PO PRN (20:29)
[2016-09-22] MEDS ORDERED: D5W/0.45% NACL/KCL 20 MEQ 20 MEQ/1,000 ML BAG IV SCH (21:00)
[2016-09-22] MEDS: TUMS PO SCH (21:17)
[2016-09-22] MEDS ORDERED: CALCIUM GLUCONATE 2,000 MG in NACL 0.9% 100 ML IV ONE (21:45)
--- NOTE | 2016-09-22 22:28 | History and Physical Report ---
CHIEF COMPLAINT: 1. Altered sensorium. 2. Nausea and vomiting for 2 days. HISTORY OF PRESENT ILLNESS: A 46-year-old -[place] female with history of insulin-dependent diabetes for the last 12 years, HIV, hypertension, comes in for altered sensorium being confused, lethargic, nausea, and vomiting for the last 2 to 3 days. The patient is a very poor historian. She has a partner who is on left side who is also poor historian too. What I could gather is this patient has been compliant with her insulin, which has been becoming lethargic for the last 2 to 3 days with increasing nausea and vomiting for the last 2 days. No fever, no chills. No diarrhea, no constipation. Also, the patient has foul-smelling urine and has difficulty walking. PAST MEDICAL HISTORY: Significant for insulin-dependent diabetes, hypertension, HIV. CURRENT MEDICATIONS: Novolin 70/30 at 30 units twice a day, lisinopril 10 mg daily. ALLERGIES: None. REVIEW OF SYSTEMS: CONSTITUTIONAL: No fever, no chills, no weight loss, no weight gain. HEENT: No sore throat. No postnasal drip. CARDIOVASCULAR: No chest pain, no palpitations. RESPIRATORY SYSTEM: No shortness of breath, no wheezing. NECK: No neck stiffness or neck pain. GASTROINTESTINAL: As mentioned, nausea, vomiting present. Slight abdominal discomfort present. GENITOURINARY SYSTEM: No urgency, no flank pain. No dysuria. MUSCULOSKELETAL SYSTEM: No joint pains. No muscle pains. SKIN: No rashes, no lesions. NEUROLOGICAL: No syncope, no seizures. PSYCHIATRIC: No depression. No suicidal or homicidal ideations. HEMATOLOGIC/LYMPHATIC: Denies easy bruising or lymphedema. A 14-point review of systems was done. PHYSICAL EXAMINATION: GENERAL: Middle-aged female, lethargic, altered sensorium, answers questions appropriately sometimes. Half of the times, she answers questions appropriately. VITAL SIGNS: Temperature is 97.5, pulse is 110, respirations 15-20, sats are 100%, blood pressure is 109/61. HEENT: Dry mucous membranes. NECK: Supple, no lymphadenopathy, no thyromegaly. LUNGS: Clear to auscultation and percussion. Good air entry. CARDIOVASCULAR: S1, S2 heard. No gallop, no murmur, no rub. Apical impulse in the left fifth intercostal space and midclavicular line. ABDOMEN: Slight tenderness present in the epigastric region. Bowel sounds are normal. No guarding, no rigidity. EXTREMITIES: Good pedal pulses. No pedal edema. CENTRAL NERVOUS SYSTEM: Altered sensorium and able to answer questions. Moves all 4 extremities. NEUROLOGIC: No focal deficits. SKIN: Normal. LABORATORY DATA: Significant for H and H of 4.4 and 15.4, white count is 7800 and MCV is 95, but MCH is 27, MCHC is 28, and RDW 19.9, platelets 172,000. pH is 7.038, sodium is 143, potassium is 5.2, chloride is 103, bicarbonate is 5, anion gap is 40, BUN and creatinine is 102 and 4.6, glucose is , calcium is 5.9. Urine shows specific gravity of 1.026. Toxicology was positive for marijuana. Chest x-ray was normal. ASSESSMENT AND PLAN: 1. Diabetic ketoacidosis. The patient initiated on DKA protocol. IV insulin and IV D5 normal saline along with potassium. Biomaterials Engineer consult requested. Monitor glucose levels every 1 hour. Adjust the insulin dose accordingly. 2. Acute anemia, for hemoglobin of 4.4 and 15.4, probably multifactorial secondary to renal failure, HIV, bone marrow suppression. We will get iron studies, B12, and folic acid. The patient has transfused 2 units to 4 units of packed red blood cells. 3. Acute on chronic renal failure. IV fluids, trend BUN and creatinine. Renal consult requested. 4. Hypertension. Continue lisinopril 10 mg daily. 5. Hypocalcemia. Calcium gluconate to be given and calcium to be given on a regular basis and on a p.o. basis. We will basis. 6. Deep venous thrombosis prophylaxis, Lovenox 40 mg subcutaneous daily. CRITICAL CARE STATEMENT: The high probability of a clinically significant sudden or life-threatening deterioration of cardiorespiratory and endocrine systems required my full and direct care attention, intervention, and personal management. Aggregate critical care time was 40 minutes. The time in addition to time spent performing reported procedures, which includes the following, 1. Data review and interpretation. 2. The patient's assessment and monitoring of vital signs. 3. Documentation. 4. Medication orders and management. JOB# [id number] VSIsabel/BAM
[2016-09-23 00:14] LABS: BUN/Creatinine Ratio 24.16; Calcium 6.2 mg/dL (8.4-10.2); Chloride 124.2 mmol/L (98-107); Potassium 3.2 mmol/L (3.6-5.0)
[2016-09-23 00:26] LABS: Magnesium 2.9 mg/dL (1.7-2.3); Phosphorous 2.7 mg/dL (2.5-4.5)
[2016-09-23 01:45] LABS: Hematocrit 43.7 % (30.3-42.9); Hemoglobin 13.6 gm/dl (10.1-14.3)
[2016-09-23] MEDS: NovoLIN R 100 UNITS in NACL 0.9% 99 ML IV SCH ×2 (02:21→22:11)
[2016-09-23 03:31] LABS: BUN/Creatinine Ratio 20.65; Calcium 8.5 mg/dL (8.4-10.2); Chloride 125.4 mmol/L (98-107); Potassium 3.7 mmol/L (3.6-5.0)
[2016-09-23 06:24] LABS: BUN/Creatinine Ratio 22.85; Calcium 8.4 mg/dL (8.4-10.2); Chloride 127.1 mmol/L (98-107); Potassium 4.6 mmol/L (3.6-5.0)
--- NOTE | 2016-09-23 07:46 | XRay Report ---
AP CHEST: HISTORY: Altered mental status AP view of the chest demonstrates a normal mediastinal and cardiac contour with clear lungs and normal bony and soft tissue structures. Minor discoid atelectasis adjacent to the right hilum is noted. No significant change since 12/26/13. IMPRESSION: No acute cardiopulmonary process.
--- NOTE | 2016-09-23 08:37 | Consultation ---
History of Present Illness - Reason for Consult Consult date: 09/23/16 acute renal failure Requesting physician: DEIRDRE LOWERY - History of Present Illness 46 yo AAF with Hx of DM insulin-dependent who was admitted in 2013 twice with diabetic ketoacidosis. During one of the hospitalizations, BUN and creatinine were elevated at 40 and 2.8 mg/dL but at the time of discharge had improved to 6 /1.0 mg/dL. Patient was brought to the hospital on account of altered mental status. She had been increasingly lethargic for 2-3 days. She also had nausea and vomiting. Urine had become foul-smelling and she had difficulty walking. Blood pressure the ER was 88/49 mmHg. When I evaluated the patient in the intensive care unit, patient was still confused and really not able to give a history. History is status post obtained from my review of the records. Blood sugar was 1405 mg/dL on presentation and improved very rapidly on starting insulin drip and so she is now on dextrose infusion. Unfortunately, sodium has increased to 165 mmol per liter Past History Past Medical History: diabetes, hypertension, other (history of acute kidney failure in the setting of diabetic ketoacidosis) Past Surgical History: Other (unable to obtain) Social history: other (unable to obtain) Family history: other (unable to obtain) Medications and Allergies Allergies Allergy/AdvReac Type Severity Reaction Status Date / Time No Known Allergies Allergy Verified 03/26/14 03:17 Home Medications Medication Instructions Recorded Confirmed Last Taken Type Unobtainable 09/22/16 09/22/16 Unknown History Active Meds: Active Medications Acetaminophen (Tylenol) 650 mg PO Q6H PRN PRN Reason: Pain MILD(1-3)/Fever >100.5/RODRIGUEZ Al Hydrox/Mg Hydrox/Simethicone (Alum-Mag Hydrox-Simeth [phone]/5ml) 30 ml PO Q4H PRN PRN Reason: Indigestion Alprazolam (Xanax) 0.25 mg PO Q8H PRN PRN Reason: Anxiety Bisacodyl (Dulcolax) 10 mg [place] QDAY PRN PRN Reason: constipation unrelieved by MOM Calcium Carbonate/Glycine (Tums) 1,000 mg PO BID ULI Last Admin: 09/22/16 21:17 Dose: Not Given Dextrose (D50w (25gm)) 0 ml IV ONCE PRN PRN Reason: Hypoglycemia Hydromorphone HCl (Dilaudid) 1 mg IV Q3H PRN PRN Reason: Pain , Severe (7-10) Insulin Human Regular 100 (units/ Sodium Chloride) 100 mls @ 1 mls/hr IV TITR ULI; 1 UNITS/HR PRN Reason: Protocol Last Titration: 09/23/16 08:26 Dose: 4 units/hr, 4 mls/hr Potassium Chloride/Dextrose/Sod Cl (D5w/0.45% Nacl/Kcl 20 Meq) 20 meq in 1,000 mls @ 125 mls/hr IV DIRECT ULI Last Admin: 09/23/16 02:23 Dose: 125 mls/hr Potassium Chloride 20 meq/ (Dextrose) 1,010 mls @ 150 mls/hr IV DIRECT ULI Magnesium Hydroxide (Milk Of Magnesia) 30 ml PO Q4H PRN PRN Reason: Constipation Review of Systems ROS unobtainable: due to mental status Exam - Vital Signs Vital signs: Vital Signs Resp BP 20 88/49 09/22/16 14:13 09/22/16 14:13 - Physical Exam Narrative exam: Frail middle-age -[place] female and asthenic biuld Lying in bed in the intensive care unit in no acute distress HEENT normocephalic atraumatic, pupils equal reactive to light, pink, clear oropharynx Neck supple, no thyromegaly no jugular venous distention CVS S1-S2 tachycardic without murmur, rub or gallop Chest clear to auscultation Abdomen soft nondistended tender no organomegaly no bruit bowel sounds present Extremities trace edema no cyanosis or clubbing Genitourinary deferred Neuro awake, confused, moving extremities Results - Lab Results 09/23/16 01:29 09/23/16 15:47 Most recent lab results Calcium 8.4 mg/dL (8.4-10.2) 09/23/16 05:48 Phosphorus 2.7 mg/dL (2.5-4.5) D 09/22/16 23:26 Magnesium 2.9 mg/dL (1.7-2.3) H 09/22/16 23:26 Assessment and Plan - Patient Problems (1) Acute kidney failure with tubular necrosis Current Visit: Yes Status: Acute Plan to address problem: Prerenal azotemia versus acute tubular necrosis secondary to hypotension r/o sepsis. Will check serologies. Get urinalysis and quantify proteinuria if present. Continue volume resuscitation. Monitor electrolytes and renal function closely. We need to consider dialysis if patient is not improving with aggressive medical management (2) DKA (diabetic ketoacidoses) Current Visit: Yes Status: Acute Qualifiers: Diabetes mellitus type: D Diabetes mellitus complication detail: D Diabetes mellitus correction insulin use: D Plan to address problem: Continue insulin drip and dextrose infusion being actively managed by hospitalist/children's literature professor. (3) Hypotension Current Visit: Yes Status: Acute Qualifiers: Hypotension type: H Trimester: T Plan to address problem: Continue volume resuscitation and close follow-up (4) Anemia Current Visit: Yes Status: Acute Qualifiers: Anemia type: A Iron deficiency anemia type: I Vitamin B12 deficiency anemia type: V Folate deficiency anemia type: F Bone marrow failure anemia type: B Hemolytic anemia type: H Other causes of anemia: O Plan to address problem: Follow-up hemoglobin (5) Hypocalcemia Current Visit: Yes Status: Acute (6) Chronic kidney disease, stage III (moderate) Current Visit: Yes Status: Acute Plan to address problem: Presumed stage III chronic kidney disease. (7) Hypertensive chronic kidney disease with stage 1 through stage 4 chronic kidney disease, or unspecified chronic kidney disease Current Visit: Yes Status: Acute Plan to address problem: Blood pressure is now low. Hold hypotensive medications and follow up (8) Diabetes 1.5, managed as type 1 Current Visit: No Status: Chronic Plan to address problem: Blood sugar management by primary attending (9) Acute hypernatremia Current Visit: Yes Status: Acute Plan to address problem: Change IV fluid to D5W and follow-up sodium closely. (10) Hypocalcemia Current Visit: Yes Status: Acute Plan to address problem: Continue to supplement calcium and follow-up levels
[2016-09-23 09:13] LABS: Magnesium 3.5 mg/dL (1.7-2.3); Phosphorous 1.7 mg/dL (2.5-4.5)
[2016-09-23] MEDS ORDERED: D5W 1,000 ML with KCL 20 MEQ IV SCH (10:00)
[2016-09-23 10:05] LABS: BUN/Creatinine Ratio 22.04; Calcium 8.5 mg/dL (8.4-10.2); Chloride 128.7 mmol/L (98-107); Potassium 4.4 mmol/L (3.6-5.0)
[2016-09-23] MEDS: TUMS PO SCH ×2 (10:13→21:18)
--- NOTE | 2016-09-23 12:32 | Consultation ---
History of Present Illness Consult date: 09/23/16 Requesting physician: DEIRDRE LOWERY Reason for consult: other (DKA; Altered Mental Status) History of present illness: PULMONARY/CCM CONSULT NOTE (Full dictation # [id number]) Please see dictated notes for full details Past History Past Medical History: diabetes, hypertension Medications and Allergies Allergies Allergy/AdvReac Type Severity Reaction Status Date / Time No Known Allergies Allergy Verified 03/26/14 03:17 Home Medications Medication Instructions Recorded Confirmed Last Taken Type Unobtainable 09/22/16 09/22/16 Unknown History Active Meds: Active Medications Acetaminophen (Tylenol) 650 mg PO Q6H PRN PRN Reason: Pain MILD(1-3)/Fever >100.5/RODRIGUEZ Al Hydrox/Mg Hydrox/Simethicone (Alum-Mag Hydrox-Simeth [phone]/5ml) 30 ml PO Q4H PRN PRN Reason: Indigestion Alprazolam (Xanax) 0.25 mg PO Q8H PRN PRN Reason: Anxiety Bisacodyl (Dulcolax) 10 mg [place] QDAY PRN PRN Reason: constipation unrelieved by MOM Calcium Carbonate/Glycine (Tums) 1,000 mg PO BID ULI Last Admin: 09/23/16 10:13 Dose: Not Given Dextrose (D50w (25gm)) 0 ml IV ONCE PRN PRN Reason: Hypoglycemia Famotidine (Pepcid) 20 mg IV DAILY ULI Hydromorphone HCl (Dilaudid) 1 mg IV Q3H PRN PRN Reason: Pain , Severe (7-10) Insulin Human Regular 100 (units/ Sodium Chloride) 100 mls @ 1 mls/hr IV TITR ULI; 1 UNITS/HR PRN Reason: Protocol Last Titration: 09/23/16 08:26 Dose: 4 units/hr, 4 mls/hr Potassium Chloride 20 meq/ (Dextrose) 1,010 mls @ 150 mls/hr IV DIRECT ULI Last Admin: 09/23/16 10:05 Dose: 150 mls/hr Sodium Phosphate 15 mmol/ (Dextrose) 255 mls @ 125 mls/hr IV ONCE ONE Stop: 09/23/16 15:02 Magnesium Hydroxide (Milk Of Magnesia) 30 ml PO Q4H PRN PRN Reason: Constipation Physical Examination Vital signs: Vital Signs Resp BP 20 88/49 04/18/17 14:13 09/22/16 14:13 Results - Laboratory Findings CBC and BMP: 09/23/16 01:29 09/23/16 08:44 PT/INR, D-dimer PT 19.3 Sec. (12.2-14.9) H 09/22/16 15:05 INR 1.63 (0.87-1.13) H 09/22/16 15:05 Abnormal lab findings: Abnormal Labs 09/22/16 09/22/16 09/22/16 17:01 18:52 20:14 Hct Sodium Potassium 6.1 H* Chloride Carbon Dioxide 3 L* BUN 107 H Creatinine 4.8 H Glucose 1429 H* POC Glucose > 500 H > 500 H Calcium 6.9 L D Phosphorus Magnesium 09/22/16 09/22/16 09/22/16 21:06 22:15 23:10 Hct Sodium Potassium Chloride Carbon Dioxide BUN Creatinine Glucose POC Glucose > 500 H > 500 H > 500 H Calcium Phosphorus Magnesium 09/22/16 09/22/16 09/22/16 23:26 23:26 23:52 Hct Sodium 158 H D Potassium 3.2 L D Chloride 124.2 H Carbon Dioxide 10 L D BUN 87 H Creatinine 3.6 H Glucose 511 H* POC Glucose 472 H Calcium 6.2 L Phosphorus Magnesium 2.9 H 09/23/16 09/23/16 09/23/16 01:03 01:29 01:56 Hct 43.7 H D Sodium Potassium Chloride Carbon Dioxide BUN Creatinine Glucose POC Glucose 297 H 226 H Calcium Phosphorus Magnesium 09/23/16 09/23/16 09/23/16 03:04 04:00 04:54 Hct Sodium 166 H* D Potassium Chloride 125.4 H Carbon Dioxide 17 L D BUN 95 H Creatinine 4.6 H Glucose 128 H POC Glucose 115 H 117 H Calcium Phosphorus Magnesium 09/23/16 09/23/16 09/23/16 05:48 05:48 06:55 Hct Sodium 165 H* Potassium Chloride 127.1 H Carbon Dioxide 19 L BUN 96 H Creatinine 4.2 H Glucose POC Glucose 115 H Calcium Phosphorus 1.7 L D Magnesium 3.5 H 09/23/16 09/23/16 09/23/16 08:19 08:44 10:02 Hct Sodium 166 H* Potassium Chloride 128.7 H Carbon Dioxide 18 L BUN 97 H Creatinine 4.4 H Glucose POC Glucose 124 H 42 L Calcium Phosphorus Magnesium
[2016-09-23] MEDS ORDERED: ATIVAN IV PRN (12:34)
[2016-09-23] MEDS ORDERED: D5W IV ONE (13:00)
[2016-09-23] MEDS ORDERED: SODIUM PHOSPHATE IV ONE (13:00)
[2016-09-23 14:12] LABS: Creatine Kinase MB 4.3 ng/mL (0.0-4.0)
--- NOTE | 2016-09-23 15:18 | Ultrasound Report ---
ULTRASOUND RENAL BILATERAL HISTORY: Acute renal insufficiency. TECHNIQUE: transabdominal ultrasound with color Doppler interrogation. FINDINGS: The kidneys are normal size, contour and position. There is increased renal parenchymal echotexture bilaterally. Corticomedullary differentiation is preserved. No evidence for cystic disease, mass, nephrolithiasis hydronephrosis or perinephric fluid. The bladder is decompressed with a Short catheter. IMPRESSION: Renal parenchymal disease. No focal renal lesion or hydronephrosis.
[2016-09-23] MEDS: LOVENOX SUB-Q SCH (15:56)
--- NOTE | 2016-09-23 15:56 | Progress Note ---
Assessment and Plan Acute toxic encephalopathy Severe DKA Severe anemia hypernatremia ASHELY with ATN malnutrition Severe metabolic acidosis - cont insulin drip and D5W - nephrology following - monitor with serial BMP - trend Na and Cr - s/p PRBC transfusion, will monitor H and H - will get stool study for occult blood - will get CT head once medically stable The high probability of a clinically significant, sudden or life threatening deterioration of the system(s) required my full and direct attention, intervention and personal management. The aggregate critical care time was [] minutes. This time is in addition to time spent performing reported procedures but includes the following: [x] Data Review and interpretation [x] Patient assessment and monitoring of vital signs [x] Documentation [x] Medication orders and management Subjective Date of service: 09/23/16 Interval history: Pt seen and examined appears agitated, pulled out iv line Na level was 166 this am Objective - Constitutional Vitals: Vital Signs - 12hr 09/23/16 09/23/16 09/23/16 04:00 04:30 05:00 Temperature 99.1 F Pulse Rate 135 H 130 H 130 H Respiratory 11 L 13 13 Rate Blood Pressure 128/76 133/81 137/80 O2 Sat by Pulse 99 99 99 Oximetry 09/23/16 09/23/16 09/23/16 05:30 06:00 06:30 Temperature Pulse Rate 130 H 135 H 129 H Respiratory 12 16 10 L Rate Blood Pressure 129/87 117/84 112/79 O2 Sat by Pulse 100 100 99 Oximetry 09/23/16 09/23/16 09/23/16 07:00 07:30 08:00 Temperature 97.5 F L Pulse Rate 130 H 124 H 120 H Respiratory 12 15 15 Rate Blood Pressure 122/89 131/87 141/88 O2 Sat by Pulse 99 98 98 Oximetry 09/23/16 09/23/16 09/23/16 08:30 09:00 09:30 Temperature Pulse Rate 118 H 119 H 118 H Respiratory 10 L 13 12 Rate Blood Pressure 145/93 132/84 132/81 O2 Sat by Pulse 99 99 99 Oximetry 09/23/16 09/23/16 09/23/16 10:00 10:30 11:00 Temperature Pulse Rate 118 H 118 H 118 H Respiratory 10 L 13 14 Rate Blood Pressure 141/84 133/91 147/95 O2 Sat by Pulse 99 98 98 Oximetry 09/23/16 09/23/16 09/23/16 11:30 12:00 12:30 Temperature 97.2 F L Pulse Rate 119 H 117 H 112 H Respiratory 16 13 13 Rate Blood Pressure 147/84 147/86 144/90 O2 Sat by Pulse 99 100 99 Oximetry 09/23/16 09/23/16 09/23/16 13:00 13:30 14:00 Temperature Pulse Rate 114 H 118 H 120 H Respiratory 11 L 11 L 12 Rate Blood Pressure 149/87 138/92 142/96 O2 Sat by Pulse 99 99 99 Oximetry 09/23/16 09/23/16 09/23/16 14:30 15:00 15:30 Temperature Pulse Rate 122 H 106 H 113 H Respiratory 13 13 14 Rate Blood Pressure 145/96 123/88 145/98 O2 Sat by Pulse 99 99 99 Oximetry General appearance: Present: cachectic, other (agitated) - EENT Eyes: PERRL, EOM intact ENT: hearing intact, no thrush, no ulcerations Ears: bilateral: normal - Neck Neck: supple, normal ROM - Respiratory Respiratory effort: normal Respiratory: bilateral: CTA - Cardiovascular Rhythm: regular Heart Sounds: Present: S1 & S2. Absent: gallop, rub Extremities: pulses intact, No edema, normal color, Full ROM - Gastrointestinal General gastrointestinal: Present: soft, non-tender, non-distended, normal bowel sounds - Integumentary Integumentary: clear, warm, dry - Musculoskeletal Musculoskeletal: 1, strength equal bilaterally - Neurologic Neurologic: moves all extremities - Psychiatric Psychiatric: agitated - Labs CBC & Chem 7: 09/23/16 01:29 09/23/16 20:00 Labs: Abnormal lab results 09/22/16 09/22/16 09/22/16 Range/Units 17:01 18:52 20:14 Hct (30.3-42.9) % Sodium (137-145) mmol/L Potassium 6.1 H* (3.6-5.0) mmol/L Chloride (98-107) mmol/L Carbon Dioxide 3 L* (22-30) mmol/L BUN 107 H (7-17) mg/dL Creatinine 4.8 H (0.7-1.2) mg/dL Glucose 1429 H* (65-100) mg/dL POC Glucose > 500 H > 500 H (70-105) Calcium 6.9 L D (8.4-10.2) mg/dL Phosphorus (2.5-4.5) mg/dL Magnesium (1.7-2.3) mg/dL Total Creatine Kinase (30-135) units/L CK-MB (CK-2) (0.0-4.0) ng/mL Troponin T (0.00-0.029) ng/mL Triglycerides (2-149) mg/dL 09/22/16 09/22/16 09/22/16 Range/Units 21:06 22:15 23:10 Hct (30.3-42.9) % Sodium (137-145) mmol/L Potassium (3.6-5.0) mmol/L Chloride (98-107) mmol/L Carbon Dioxide (22-30) mmol/L BUN (7-17) mg/dL Creatinine (0.7-1.2) mg/dL Glucose (65-100) mg/dL POC Glucose > 500 H > 500 H > 500 H (70-105) Calcium (8.4-10.2) mg/dL Phosphorus (2.5-4.5) mg/dL Magnesium (1.7-2.3) mg/dL Total Creatine Kinase (30-135) units/L CK-MB (CK-2) (0.0-4.0) ng/mL Troponin T (0.00-0.029) ng/mL Triglycerides (2-149) mg/dL 09/22/16 09/22/16 09/22/16 Range/Units 23:26 23:26 23:52 Hct (30.3-42.9) % Sodium 158 H D (137-145) mmol/L Potassium 3.2 L D (3.6-5.0) mmol/L Chloride 124.2 H (98-107) mmol/L Carbon Dioxide 10 L D (22-30) mmol/L BUN 87 H (7-17) mg/dL Creatinine 3.6 H (0.7-1.2) mg/dL Glucose 511 H* (65-100) mg/dL POC Glucose 472 H (70-105) Calcium 6.2 L (8.4-10.2) mg/dL Phosphorus (2.5-4.5) mg/dL Magnesium 2.9 H (1.7-2.3) mg/dL Total Creatine Kinase (30-135) units/L CK-MB (CK-2) (0.0-4.0) ng/mL Troponin T (0.00-0.029) ng/mL Triglycerides (2-149) mg/dL 09/23/16 09/23/16 09/23/16 Range/Units 01:03 01:29 01:56 Hct 43.7 H D (30.3-42.9) % Sodium (137-145) mmol/L Potassium (3.6-5.0) mmol/L Chloride (98-107) mmol/L Carbon Dioxide (22-30) mmol/L BUN (7-17) mg/dL Creatinine (0.7-1.2) mg/dL Glucose (65-100) mg/dL POC Glucose 297 H 226 H (70-105) Calcium (8.4-10.2) mg/dL Phosphorus (2.5-4.5) mg/dL Magnesium (1.7-2.3) mg/dL Total Creatine Kinase (30-135) units/L CK-MB (CK-2) (0.0-4.0) ng/mL Troponin T (0.00-0.029) ng/mL Triglycerides (2-149) mg/dL 09/23/16 09/23/16 09/23/16 Range/Units 03:04 04:00 04:54 Hct (30.3-42.9) % Sodium 166 H* D (137-145) mmol/L Potassium (3.6-5.0) mmol/L Chloride 125.4 H (98-107) mmol/L Carbon Dioxide 17 L D (22-30) mmol/L BUN 95 H (7-17) mg/dL Creatinine 4.6 H (0.7-1.2) mg/dL Glucose 128 H (65-100) mg/dL POC Glucose 115 H 117 H (70-105) Calcium (8.4-10.2) mg/dL Phosphorus (2.5-4.5) mg/dL Magnesium (1.7-2.3) mg/dL Total Creatine Kinase (30-135) units/L CK-MB (CK-2) (0.0-4.0) ng/mL Troponin T (0.00-0.029) ng/mL Triglycerides (2-149) mg/dL 09/23/16 09/23/16 09/23/16 Range/Units 05:48 05:48 06:55 Hct (30.3-42.9) % Sodium 165 H* (137-145) mmol/L Potassium (3.6-5.0) mmol/L Chloride 127.1 H (98-107) mmol/L Carbon Dioxide 19 L (22-30) mmol/L BUN 96 H (7-17) mg/dL Creatinine 4.2 H (0.7-1.2) mg/dL Glucose (65-100) mg/dL POC Glucose 115 H (70-105) Calcium (8.4-10.2) mg/dL Phosphorus 1.7 L D (2.5-4.5) mg/dL Magnesium 3.5 H (1.7-2.3) mg/dL Total Creatine Kinase (30-135) units/L CK-MB (CK-2) (0.0-4.0) ng/mL Troponin T (0.00-0.029) ng/mL Triglycerides (2-149) mg/dL 09/23/16 09/23/16 09/23/16 Range/Units 08:19 08:44 10:02 Hct (30.3-42.9) % Sodium 166 H* (137-145) mmol/L Potassium (3.6-5.0) mmol/L Chloride 128.7 H (98-107) mmol/L Carbon Dioxide 18 L (22-30) mmol/L BUN 97 H (7-17) mg/dL Creatinine 4.4 H (0.7-1.2) mg/dL Glucose (65-100) mg/dL POC Glucose 124 H 42 L (70-105) Calcium (8.4-10.2) mg/dL Phosphorus (2.5-4.5) mg/dL Magnesium (1.7-2.3) mg/dL Total Creatine Kinase (30-135) units/L CK-MB (CK-2) (0.0-4.0) ng/mL Troponin T (0.00-0.029) ng/mL Triglycerides (2-149) mg/dL 09/23/16 Range/Units 13:19 Hct (30.3-42.9) % Sodium (137-145) mmol/L Potassium (3.6-5.0) mmol/L Chloride (98-107) mmol/L Carbon Dioxide (22-30) mmol/L BUN (7-17) mg/dL Creatinine (0.7-1.2) mg/dL Glucose (65-100) mg/dL POC Glucose (70-105) Calcium (8.4-10.2) mg/dL Phosphorus (2.5-4.5) mg/dL Magnesium (1.7-2.3) mg/dL Total Creatine Kinase 162 H (30-135) units/L CK-MB (CK-2) 4.3 H (0.0-4.0) ng/mL Troponin T 0.192 H* (0.00-0.029) ng/mL Triglycerides 171 H (2-149) mg/dL - Imaging and cardiology Chest x-ray: report reviewed
[2016-09-23] MEDS: PEPCID IV SCH (15:57)
[2016-09-23 16:30] LABS: BUN/Creatinine Ratio 22.61; Calcium 8.5 mg/dL (8.4-10.2); Chloride 127.6 mmol/L (98-107); Potassium 4.5 mmol/L (3.6-5.0)
[2016-09-23] MEDS ORDERED: KCL 10 MEQ in D5W 1,000 ML IV SCH (18:51)
[2016-09-23 20:42] LABS: BUN/Creatinine Ratio 21.86; Calcium 7.9 mg/dL (8.4-10.2); Chloride 121.9 mmol/L (98-107); Potassium 4.3 mmol/L (3.6-5.0)
--- NOTE | 2016-09-24 00:07 | Consultation ---
PULMONARY CRITICAL CARE CONSULT NOTE CONSULTING PHYSICIAN: Alex Campbell MD REASON FOR CONSULTATION: Altered mental status, nausea and vomiting. CHIEF COMPLAINT AND HISTORY OF PRESENT ILLNESS: The patient is a 46-year-old -[place] female with past medical history significant amongst other things both for a diagnosis of insulin-dependent diabetes, but also HIV positive. She was brought in for altered mental status. According to the records, a partner found her wedged between their mattresses at home, I believe. She was unable to give much of the history. Today, she seems to admit to not using her insulin at home or taking her medications. The record report was that she had been going increasingly lethargic with nausea and vomiting over the preceding 2-3 days. She was admitted to the Intensive Care Unit. After evaluation in the Emergency Room showed that she had diabetic ketoacidosis and needed IV insulin therapy. When I stopped by to see her, she was being weaned off the IV insulin therapy. She was still a little bit confused, but she does have other Electrolyte derangements. She is tender to touch all over. Now with regards to tobacco use/abuse history, I am unable to get that history from her. That really is as much of the history of presentation as I have. PAST MEDICAL HISTORY: Again, HIV positive, hypertension and diabetes. PAST SURGICAL HISTORY: Unknown. MEDICATIONS: She was on at the time I stopped by to see her, according to the medication administration record included the following: Tylenol 650 mg p.o. q.6 hours p.r.n. mild pain and for fevers, Xanax 0.25 mg p.o. q. 8 hours p.r.n. anxiety, Tums 1000 mg p.o. b.i.d. scheduled. She was on IV insulin drip I think going about 3 units per hour. She was on D5 with D5 water with 20 mEq of KCl per liter running at 150 mL per hour, Dilaudid 1 mg IV q. 3 hours p.r.n. severe pain, p.r.n. milk of magnesia. ALLERGIES: No known drug allergies. DIET: Petite lady, acute weight loss or gain history is unknown. FAMILY AND SOCIAL HISTORY: Apparently lived in the community. She was reported as a never smoker in the Emergency Room. Family history otherwise unknown. REVIEW OF SYSTEMS: Difficult to obtain secondary to her medical and mental condition. Since she has been here, no gross hematochezia or melena, no gross hematuria, no hematemesis, no hemoptysis. No seizures. PHYSICAL EXAMINATION: VITAL SIGNS: At presentation in the Emergency Room revealed vital signs shows that she was hypothermic, described as 91.6 degrees Fahrenheit with a pulse of 106, respiratory rate of 20 and blood pressure of 88/49, oxygen sats 99%, that was described as Kussmaul's breathing well, breathing. Her most recent temperature is now 97.5 degrees Fahrenheit. HEAD, EYES, EARS, NOSE AND THROAT: Pupils are equal, round, about 3 mm, reactive to light. Extraocular muscle movements are intact. Grossly, there were no palpable lymph nodes in the supraclavicular or submandibular lymph node chains. LUNGS: Auscultation of both lung pearson were unremarkable. Lungs are clear bilaterally. HEART: Heart sounds 1 and 2 are heard, regular rate and rhythm at the time of my evaluation. ABDOMEN: Soft, flat. Bowel sounds are positive, nontender. EXTREMITIES: Without overt digital clubbing, cyanosis, or pedal edema. NEUROLOGIC: She moved all extremities. She was moaning, mostly but when spoken to a little bit more forcefully she responded appropriately and otherwise she was moaning and lethargic and as mentioned from an integumentary standpoint, she was tender to touch all over. LABORATORY DATA: From my review are as follows: Admission white count was 7800 with a hemoglobin of 4.4, hematocrit of 15.4 and platelet count of 172. No band forms were reported of significance. INR was 1.63. Venous blood gas showed a pH of 7.04. Serum sodium was 143, potassium 5.2, chloride 103, bicarbonate was 5, BUN 102, creatinine 4.6 and glucose was 1405. Hemoglobin A1c was 14.4, phosphorus level was 1.6. Urinalysis negative for nitrites and leukocyte esterase. Unremarkable urine microscopy. Urine drug screen was presumptive positive for marijuana. Otherwise, it was negative. Most recent labs, her serum sodium at this time is 166, BUN is 97 and the creatinine is down to 4.4. Microbiology studies, I do not see any microbiology studies. Radiographic studies. I am trying to pull up the chest x-ray. I have reviewed the radiologist's interpretation and it describes as no acute cardiopulmonary process. ASSESSMENT AND PLAN: We have a middle-aged lady in with altered mental status, diabetic ketoacidosis and significantly elevated serum sodium. All of this could account for altered mental status; however, we might need to also work that up a little bit more especially considering her comorbidities. From a respiratory standpoint, at this point, she will be placed on supplemental oxygen as needed if her sats drop below 92%. Aspiration precautions will be maintained. Bronchodilators will be on a p.r.n. basis and in case she does develop hypoventilation or other respiratory disorder p.r.n., bilevel positive airway pressure ventilation therapy will be offered. From a cardiovascular standpoint, I should mention that I will get a stat set of cardiac enzymes. First of all, we need to rule out a cardiac event as the cause of the diabetic ketoacidosis in the first case, but also I want to see what her creatine kinase levels are doing as that may also be at play here from the tenderness. She may well have an element of rhabdomyolysis. I will get a set of cardiac enzymes, but we will continue to watch her continue and continue volume resuscitation. No acute indication for vasopressors at this time. Now from a renal standpoint, she has been seen by the direct response consultant and he is managing her IV fluids and hypernatremia at this point, I think we should be able to correct those soon and easily. Electrolytes will be monitored and corrected as necessary. Inputs and outputs will be monitored. From an infectious disease standpoint, I do note the sepsis picture. I should say the altered mental status; however, I do not see any acute indication for anti-infective therapy considering her HIV diagnosis; however, I will go ahead and send a couple of blood cultures to the lab and then follow her empirically off antibiotics. Anti-infectives if started will be deescalated based on results of clinical and microbiologic data. Her lactic acid level was really unremarkable at 1.2. Now from a OFFICE EMPLOYEE standpoint, she will be sent for a CT scan of the brain. Otherwise, we will continue to follow her clinically. From a GI and nutritional standpoint, enteral nutrition will be the feeding modality of choice. A feeding tube will be placed now and she will be placed on GI prophylaxis. From a general and hospital healthcare maintenance standpoint, she is going to be placed on GI and deep venous thrombosis prophylaxis. Flu and pneumonia vaccination will be per protocol. Thank you very much for the consult. Dr. Campbell will follow along and make further recommendations as picture progresses/becomes clearer. At this point, I have spent about 30-35 minutes of critical care time without overlap and excluding any procedural time that may be necessary. She is critically ill, on life-sustaining interventions including the IV insulin therapy at risk for further deterioration including . [facility]# [id number] CAYETANO/BAM
[2016-09-24 01:31] LABS: Hematocrit 39.2 % (30.3-42.9); Hemoglobin 12.7 gm/dl (10.1-14.3)
[2016-09-24 04:54] LABS: Hematocrit 39.5 % (30.3-42.9); Hemoglobin 12.5 gm/dl (10.1-14.3)
--- NOTE | 2016-09-24 08:27 | Progress Note ---
Assessment and Plan - Patient Problems (1) Acute kidney failure with tubular necrosis Current Visit: Yes Status: Acute Plan to address problem: Prerenal azotemia versus acute tubular necrosis secondary to hypotension r/o sepsis. Follow-up serologies. Monitor electrolytes and renal function closely. We need to consider dialysis if patient is not improving with aggressive medical management -labs pending this morning (2) DKA (diabetic ketoacidoses) Current Visit: Yes Status: Acute Qualifiers: Diabetes mellitus type: D Diabetes mellitus complication detail: D Diabetes mellitus ferry terminal agent insulin use: D Plan to address problem: Continue insulin drip and dextrose infusion being actively managed by hospitalist/coordinator of evaluation. (3) Hypotension Current Visit: Yes Status: Acute Qualifiers: Hypotension type: H Trimester: T Plan to address problem: Blood pressure has improved. (4) Anemia Current Visit: Yes Status: Acute Qualifiers: Anemia type: A Iron deficiency anemia type: I Vitamin B12 deficiency anemia type: V Folate deficiency anemia type: F Bone marrow failure anemia type: B Hemolytic anemia type: H Other causes of anemia: O Plan to address problem: Follow-up hemoglobin (5) Hypocalcemia Current Visit: Yes Status: Acute (6) Chronic kidney disease, stage III (moderate) Current Visit: Yes Status: Acute Plan to address problem: Presumed stage III chronic kidney disease. (7) Hypertensive chronic kidney disease with stage 1 through stage 4 chronic kidney disease, or unspecified chronic kidney disease Current Visit: Yes Status: Acute Plan to address problem: Blood pressure is improving. Continue to monitor blood pressure closely (8) Diabetes 1.5, managed as type 1 Current Visit: No Status: Chronic Plan to address problem: Blood sugar management by primary attending (9) Acute hypernatremia Current Visit: Yes Status: Acute Plan to address problem: Sodium improving. Continue free water replacement and follow-up sodium (10) Hypocalcemia Current Visit: Yes Status: Acute Plan to address problem: follow-up levels and supplement as indicated (11) Altered mental status Current Visit: Yes Status: Acute Qualifiers: Altered mental status type: A Coma depth: C Coma timing: C Plan to address problem: mental status has improved. (12) Hypophosphatemia Current Visit: Yes Status: Acute Plan to address problem: Supplement Phosphorus and fu levels Subjective Date of service: 09/24/16 Principal diagnosis: Acute renal failure Interval history: Patient seen lying in bed. She is more awake this morning. Oriented to person , "[facility], June 2016". Objective - Exam Narrative Exam: Frail middle-age -[place] female and asthenic biuld Lying in bed in the intensive care unit in no acute distress HEENT normocephalic atraumatic, pupils equal reactive to light, pink, clear oropharynx Neck supple, no thyromegaly no jugular venous distention CVS S1-S2 tachycardic without murmur, rub or gallop Chest clear to auscultation Abdomen soft nondistended tender no organomegaly no bruit bowel sounds present Extremities trace edema no cyanosis or clubbing Genitourinary deferred Neuro awake, confused, moving extremities - Vital Signs Vital signs: Vital Signs - 12hr 09/23/16 09/23/16 09/23/16 20:30 21:00 21:30 Temperature Pulse Rate 112 H 105 H 103 H Respiratory 10 L 11 L 10 L Rate Blood Pressure 138/87 O2 Sat by Pulse 98 98 99 Oximetry 09/23/16 09/23/16 09/23/16 22:00 22:30 23:00 Temperature Pulse Rate 104 H 113 H 113 H Respiratory 9 L 10 L 10 L Rate Blood Pressure 155/103 148/100 152/98 O2 Sat by Pulse 99 99 99 Oximetry 09/23/16 09/24/16 09/24/16 23:30 00:00 00:30 Temperature 98.0 F Pulse Rate 111 H 109 H 118 H Respiratory 11 L 13 13 Rate Blood Pressure 169/101 O2 Sat by Pulse 99 98 99 Oximetry 09/24/16 09/24/16 09/24/16 01:00 01:30 02:00 Temperature Pulse Rate 118 H 110 H 114 H Respiratory 13 13 11 L Rate Blood Pressure 148/92 149/97 158/100 O2 Sat by Pulse 99 99 99 Oximetry 09/24/16 09/24/16 09/24/16 02:30 03:00 03:30 Temperature Pulse Rate 117 H 122 H 114 H Respiratory 13 10 L 13 Rate Blood Pressure 149/95 159/90 161/92 O2 Sat by Pulse 99 99 99 Oximetry 09/24/16 09/24/16 09/24/16 04:00 04:30 05:00 Temperature 98.0 F Pulse Rate 120 H 120 H 114 H Respiratory 14 12 15 Rate Blood Pressure 135/92 165/102 151/97 O2 Sat by Pulse 99 100 99 Oximetry 09/24/16 09/24/16 09/24/16 05:30 06:00 08:00 Temperature 98.6 F Pulse Rate 116 H 119 H Respiratory 14 10 L Rate Blood Pressure 140/88 148/90 O2 Sat by Pulse 99 99 Oximetry - Lab 09/24/16 04:29 09/23/16 20:00 Most recent lab results Calcium 7.9 mg/dL (8.4-10.2) L 09/23/16 20:00 Phosphorus 1.6 mg/dL (2.5-4.5) L 09/24/16 04:29 Magnesium 3.5 mg/dL (1.7-2.3) H 09/23/16 05:48 Urine Creatinine 172.5 mg/dL (0.1-20.0) H 09/23/16 15:20 Urine Sodium 58 mEq/L 09/23/16 15:20 Urine Total Protein 197 mg/dL (5-11.8) H 09/23/16 15:20
[2016-09-24 09:20] LABS: Alanine Aminotransferase 15 units/L (7-56); Albumin 3.1 g/dL (3.9-5); Albumin/Globulin Ratio 1.1 %; Alkaline Phosphatase 157 units/L (35-129); Anion Gap 22 mmol/L; BUN/Creatinine Ratio 20.46; Bilirubin,Total < 0.2 mg/dL (0.1-1.2); Blood Urea Nitrogen 88 mg/dL (7-17); Carbon Dioxide 16 mmol/L (22-30); Chloride 120.2 mmol/L (98-107); Glucose 118 mg/dL (65-100); Potassium 3.7 mmol/L (3.6-5.0); Sodium 154 mmol/L (137-145)
[2016-09-24] MEDS ORDERED: D5W IV ONE (10:00)
[2016-09-24] MEDS ORDERED: SODIUM PHOSPHATE IV ONE (10:00)
[2016-09-24] MEDS: TUMS PO SCH ×2 (10:20→22:19)
[2016-09-24] MEDS: PEPCID IV SCH (10:21)
[2016-09-24] MEDS: LOVENOX SUB-Q SCH (10:21)
--- NOTE | 2016-09-24 11:02 | Progress Note ---
Assessment and Plan - Patient Problems (1) Anemia Current Visit: Yes Status: Acute Qualifiers: Anemia type: A Iron deficiency anemia type: I Vitamin B12 deficiency anemia type: V Folate deficiency anemia type: F Bone marrow failure anemia type: B Hemolytic anemia type: H Other causes of anemia: O Plan to address problem: - s/p PRBC transfusion - G.I. evaluation appropriate - iron studies - H&H holding (2) DKA (diabetic ketoacidoses) Current Visit: Yes Status: Acute Qualifiers: Diabetes mellitus type: D Diabetes mellitus complication detail: D Diabetes mellitus mcfp insulin use: D Plan to address problem: - resolved - started long acting insulin - continue SSI (3) Acute renal failure Current Visit: No Status: Acute Qualifiers: Acute renal failure type: A Plan to address problem: - improving - hypernatremia also improving - per nephrology (4) Discharge planning issues Current Visit: No Status: Acute Plan to address problem: - OK to transfer to medical floor Subjective Date of service: 09/24/16 Principal diagnosis: Acute renal failure; DKA Interval history: Seen and examined at bedside; 24 hour events reviewed; nursing and respiratory care staff consulted; no adverse overnight events reported to me; resting in bed ; looks and feels much better; tolerating p.o. meals; no emesis or overt aspiration; off IV insulin therapy Objective Vital Signs - 12hr 09/23/16 09/24/16 09/24/16 23:30 00:00 00:30 Temperature 98.0 F Pulse Rate 111 H 109 H 118 H Pulse Rate [ From Monitor] Respiratory 11 L 13 13 Rate Blood Pressure 169/101 O2 Sat by Pulse 99 98 99 Oximetry 09/24/16 09/24/16 09/24/16 01:00 01:30 02:00 Temperature Pulse Rate 118 H 110 H 114 H Pulse Rate [ From Monitor] Respiratory 13 13 11 L Rate Blood Pressure 148/92 149/97 158/100 O2 Sat by Pulse 99 99 99 Oximetry 09/24/16 09/24/16 09/24/16 02:30 03:00 03:30 Temperature Pulse Rate 117 H 122 H 114 H Pulse Rate [ From Monitor] Respiratory 13 10 L 13 Rate Blood Pressure 149/95 159/90 161/92 O2 Sat by Pulse 99 99 99 Oximetry 09/24/16 09/24/16 09/24/16 04:00 04:30 05:00 Temperature 98.0 F Pulse Rate 120 H 120 H 114 H Pulse Rate [ From Monitor] Respiratory 14 12 15 Rate Blood Pressure 135/92 165/102 151/97 O2 Sat by Pulse 99 100 99 Oximetry 09/24/16 09/24/16 09/24/16 05:30 06:00 06:30 Temperature Pulse Rate 116 H 119 H 110 H Pulse Rate [ From Monitor] Respiratory 14 10 L 14 Rate Blood Pressure 140/88 148/90 138/89 O2 Sat by Pulse 99 99 99 Oximetry 09/24/16 09/24/16 09/24/16 07:00 07:30 08:00 Temperature 98.6 F Pulse Rate 110 H 118 H 112 H Pulse Rate [ 100 H From Monitor] Respiratory 12 12 13 Rate Blood Pressure 159/97 153/105 149/105 O2 Sat by Pulse 99 99 100 Oximetry 09/24/16 09/24/16 08:30 09:37 Temperature Pulse Rate 111 H Pulse Rate [ From Monitor] Respiratory 12 Rate Blood Pressure 153/103 O2 Sat by Pulse 100 99 Oximetry Constitutional: no acute distress Eyes: non-icteric ENT: oropharynx moist Neck: supple, no lymphadenopathy Effort: normal Ascultation: Bilateral: clear Cardiovascular: regular rate and rhythm Gastrointestinal: normoactive bowel sounds, soft, non-tender, non-distended Integumentary: normal Extremities: no cyanosis, no edema, pulses normal, no ischemia or petechiae Neurologic: normal mental status, non-focal exam, pupils equal and round, motor strength normal and Psychiatric: mood appropriate, affect normal CBC and BMP: 09/24/16 04:29 09/24/16 08:19 ABG, PT/INR, D-dimer: PT/INR, D-dimer PT 19.3 Sec. (12.2-14.9) H 09/22/16 15:05 INR 1.63 (0.87-1.13) H 09/22/16 15:05 Abnormal lab findings: Abnormal Labs 09/22/16 09/22/16 09/22/16 17:01 18:52 20:14 Hct Sodium Potassium 6.1 H* Chloride Carbon Dioxide 3 L* BUN 107 H Creatinine 4.8 H Glucose 1429 H* POC Glucose > 500 H > 500 H Calcium 6.9 L D Phosphorus Magnesium Alkaline Phosphatase Total Creatine Kinase CK-MB (CK-2) Troponin T C-Reactive Protein Total Protein Albumin Triglycerides Urine Creatinine Urine Total Protein 09/22/16 09/22/16 09/22/16 21:06 22:15 23:10 Hct Sodium Potassium Chloride Carbon Dioxide BUN Creatinine Glucose POC Glucose > 500 H > 500 H > 500 H Calcium Phosphorus Magnesium Alkaline Phosphatase Total Creatine Kinase CK-MB (CK-2) Troponin T C-Reactive Protein Total Protein Albumin Triglycerides Urine Creatinine Urine Total Protein 09/22/16 09/22/16 09/22/16 23:26 23:26 23:52 Hct Sodium 158 H D Potassium 3.2 L D Chloride 124.2 H Carbon Dioxide 10 L D BUN 87 H Creatinine 3.6 H Glucose 511 H* POC Glucose 472 H Calcium 6.2 L Phosphorus Magnesium 2.9 H Alkaline Phosphatase Total Creatine Kinase CK-MB (CK-2) Troponin T C-Reactive Protein Total Protein Albumin Triglycerides Urine Creatinine Urine Total Protein 09/23/16 09/23/16 09/23/16 01:03 01:29 01:56 Hct 43.7 H D Sodium Potassium Chloride Carbon Dioxide BUN Creatinine Glucose POC Glucose 297 H 226 H Calcium Phosphorus Magnesium Alkaline Phosphatase Total Creatine Kinase CK-MB (CK-2) Troponin T C-Reactive Protein Total Protein Albumin Triglycerides Urine Creatinine Urine Total Protein 09/23/16 09/23/16 09/23/16 03:04 04:00 04:54 Hct Sodium 166 H* D Potassium Chloride 125.4 H Carbon Dioxide 17 L D BUN 95 H Creatinine 4.6 H Glucose 128 H POC Glucose 115 H 117 H Calcium Phosphorus Magnesium Alkaline Phosphatase Total Creatine Kinase CK-MB (CK-2) Troponin T C-Reactive Protein Total Protein Albumin Triglycerides Urine Creatinine Urine Total Protein 09/23/16 09/23/16 09/23/16 05:48 05:48 06:55 Hct Sodium 165 H* Potassium Chloride 127.1 H Carbon Dioxide 19 L BUN 96 H Creatinine 4.2 H Glucose POC Glucose 115 H Calcium Phosphorus 1.7 L D Magnesium 3.5 H Alkaline Phosphatase Total Creatine Kinase CK-MB (CK-2) Troponin T C-Reactive Protein Total Protein Albumin Triglycerides Urine Creatinine Urine Total Protein 09/23/16 09/23/16 09/23/16 08:19 08:44 10:02 Hct Sodium 166 H* Potassium Chloride 128.7 H Carbon Dioxide 18 L BUN 97 H Creatinine 4.4 H Glucose POC Glucose 124 H 42 L Calcium Phosphorus Magnesium Alkaline Phosphatase Total Creatine Kinase CK-MB (CK-2) Troponin T C-Reactive Protein Total Protein Albumin Triglycerides Urine Creatinine Urine Total Protein 09/23/16 09/23/16 09/23/16 12:02 13:19 14:02 Hct Sodium Potassium Chloride Carbon Dioxide BUN Creatinine Glucose POC Glucose 289 H 158 H Calcium Phosphorus Magnesium Alkaline Phosphatase Total Creatine Kinase 162 H CK-MB (CK-2) 4.3 H Troponin T 0.192 H* C-Reactive Protein Total Protein Albumin Triglycerides 171 H Urine Creatinine Urine Total Protein 09/23/16 09/23/16 09/23/16 15:20 15:47 15:47 Hct Sodium 164 H* Potassium Chloride 127.6 H Carbon Dioxide 18 L BUN 95 H Creatinine 4.2 H Glucose POC Glucose Calcium Phosphorus Magnesium Alkaline Phosphatase Total Creatine Kinase CK-MB (CK-2) Troponin T C-Reactive Protein 34.40 H Total Protein Albumin Triglycerides Urine Creatinine 172.5 H Urine Total Protein 197 H 09/23/16 09/23/16 09/23/16 16:15 18:22 20:00 Hct Sodium 159 H Potassium Chloride 121.9 H Carbon Dioxide 16 L BUN 94 H Creatinine 4.3 H Glucose 182 H POC Glucose 236 H 69 L Calcium 7.9 L Phosphorus Magnesium Alkaline Phosphatase Total Creatine Kinase CK-MB (CK-2) Troponin T C-Reactive Protein Total Protein Albumin Triglycerides Urine Creatinine Urine Total Protein 09/23/16 09/23/16 09/23/16 20:02 21:09 22:03 Hct Sodium Potassium Chloride Carbon Dioxide BUN Creatinine Glucose POC Glucose 167 H 263 H 229 H Calcium Phosphorus Magnesium Alkaline Phosphatase Total Creatine Kinase CK-MB (CK-2) Troponin T C-Reactive Protein Total Protein Albumin Triglycerides Urine Creatinine Urine Total Protein 09/24/16 09/24/16 09/24/16 00:47 01:09 02:02 Hct Sodium Potassium Chloride Carbon Dioxide BUN Creatinine Glucose POC Glucose 149 H 128 H Calcium Phosphorus Magnesium Alkaline Phosphatase Total Creatine Kinase CK-MB (CK-2) Troponin T 0.131 H* D C-Reactive Protein Total Protein Albumin Triglycerides Urine Creatinine Urine Total Protein 09/24/16 09/24/16 09/24/16 03:06 04:07 04:29 Hct Sodium Potassium Chloride Carbon Dioxide BUN Creatinine Glucose POC Glucose 144 H 131 H Calcium Phosphorus 1.6 L Magnesium Alkaline Phosphatase Total Creatine Kinase CK-MB (CK-2) Troponin T C-Reactive Protein Total Protein Albumin Triglycerides Urine Creatinine Urine Total Protein 09/24/16 09/24/16 09/24/16 04:29 06:03 07:42 Hct Sodium Potassium Chloride Carbon Dioxide BUN Creatinine Glucose POC Glucose 200 H 160 H Calcium Phosphorus Magnesium Alkaline Phosphatase Total Creatine Kinase CK-MB (CK-2) Troponin T 0.111 H* C-Reactive Protein Total Protein Albumin Triglycerides Urine Creatinine Urine Total Protein 09/24/16 09/24/16 09/24/16 08:19 09:05 10:00 Hct Sodium 154 H Potassium Chloride 120.2 H Carbon Dioxide 16 L BUN 88 H Creatinine 4.3 H Glucose 118 H POC Glucose 113 H 148 H Calcium 8.0 L Phosphorus Magnesium Alkaline Phosphatase 157 H Total Creatine Kinase CK-MB (CK-2) Troponin T C-Reactive Protein Total Protein 6.0 L Albumin 3.1 L Triglycerides Urine Creatinine Urine Total Protein
[2016-09-24] MEDS: LOPRESSOR PO SCH ×2 (12:42→22:20)
--- NOTE | 2016-09-24 13:43 | Progress Note ---
Assessment and Plan Acute metabolic encephalopathy - likely due to severe acidosis and hypernatremia - improved with hypotonic iv fluid and insulin drip Severe DKA - resolved - now insulin drip d/adrienne - placed on subcu insulin and ADA diet - adjust insulin as needed Severe anemia - s/p PRBC transfusion - check stool for occult blood hypernatremia - cont hypotonic solution ASHELY with ATN - cont to monitor renal function - nephrology consulted Malnutrition - nutrition consult Severe metabolic acidosis - due to DKA and renal failure - monitor BMP Transfer to telemetry today Subjective Date of service: 09/24/16 Principal diagnosis: Acute renal failure; DKA Interval history: Pt seen and examined Mental status much improved Na level was 154 this am BG level improved Objective - Exam Narrative Exam: General appearance: Present: cachectic, - EENT Eyes: PERRL, EOM intact ENT: hearing intact, no thrush, no ulcerations Ears: bilateral: normal - Neck Neck: supple, normal ROM - Respiratory Respiratory effort: normal Respiratory: bilateral: CTA - Cardiovascular Rhythm: regular Heart Sounds: Present: S1 & S2. Absent: gallop, rub Extremities: pulses intact, No edema, normal color, Full ROM - Gastrointestinal General gastrointestinal: Present: soft, non-tender, non-distended, normal bowel sounds - Integumentary Integumentary: clear, warm, dry - Musculoskeletal Musculoskeletal: 1, strength equal bilaterally - Neurologic Neurologic: moves all extremities - Psychiatric Psychiatric: cooperative - Constitutional Vitals: Vital Signs - 12hr 09/24/16 09/24/16 09/24/16 02:00 02:30 03:00 Temperature Pulse Rate 114 H 117 H 122 H Pulse Rate [ From Monitor] Respiratory 11 L 13 10 L Rate Blood Pressure 158/100 149/95 159/90 O2 Sat by Pulse 99 99 99 Oximetry 09/24/16 09/24/16 09/24/16 03:30 04:00 04:30 Temperature 98.0 F Pulse Rate 114 H 120 H 120 H Pulse Rate [ From Monitor] Respiratory 13 14 12 Rate Blood Pressure 161/92 135/92 165/102 O2 Sat by Pulse 99 99 100 Oximetry 09/24/16 09/24/16 09/24/16 05:00 05:30 06:00 Temperature Pulse Rate 114 H 116 H 119 H Pulse Rate [ From Monitor] Respiratory 15 14 10 L Rate Blood Pressure 151/97 140/88 148/90 O2 Sat by Pulse 99 99 99 Oximetry 09/24/16 09/24/16 09/24/16 06:30 07:00 07:30 Temperature Pulse Rate 110 H 110 H 118 H Pulse Rate [ From Monitor] Respiratory 14 12 12 Rate Blood Pressure 138/89 159/97 153/105 O2 Sat by Pulse 99 99 99 Oximetry 09/24/16 09/24/16 09/24/16 08:00 08:30 09:00 Temperature 98.6 F Pulse Rate 112 H 111 H 109 H Pulse Rate [ 100 H From Monitor] Respiratory 13 12 14 Rate Blood Pressure 149/105 153/103 143/99 O2 Sat by Pulse 100 100 100 Oximetry 09/24/16 09/24/16 09/24/16 09:31 09:37 10:00 Temperature Pulse Rate 131 H 111 H Pulse Rate [ From Monitor] Respiratory 20 16 Rate Blood Pressure 143/99 152/96 O2 Sat by Pulse 99 99 100 Oximetry 09/24/16 09/24/16 09/24/16 10:30 11:00 11:30 Temperature Pulse Rate 117 H 111 H 111 H Pulse Rate [ From Monitor] Respiratory 15 17 15 Rate Blood Pressure 161/98 164/86 153/93 O2 Sat by Pulse 100 100 99 Oximetry 09/24/16 09/24/16 12:00 12:42 Temperature 98.2 F Pulse Rate 117 H Pulse Rate [ From Monitor] Respiratory Rate Blood Pressure 164/99 O2 Sat by Pulse Oximetry - Labs CBC & Chem 7: 09/24/16 20:55 09/24/16 08:19 Labs: Abnormal lab results 09/23/16 09/23/16 09/23/16 Range/Units 12:02 13:19 14:02 Sodium (137-145) mmol/L Chloride (98-107) mmol/L Carbon Dioxide (22-30) mmol/L BUN (7-17) mg/dL Creatinine (0.7-1.2) mg/dL Glucose (65-100) mg/dL POC Glucose 289 H 158 H (70-105) Calcium (8.4-10.2) mg/dL Phosphorus (2.5-4.5) mg/dL Alkaline Phosphatase (35-129) units/L Total Creatine Kinase 162 H (30-135) units/L CK-MB (CK-2) 4.3 H (0.0-4.0) ng/mL Troponin T 0.192 H* (0.00-0.029) ng/mL C-Reactive Protein (0.00-1.30) mg/dL Total Protein (6.3-8.2) g/dL Albumin (3.9-5) g/dL Triglycerides 171 H (2-149) mg/dL Urine Creatinine (0.1-20.0) mg/dL Urine Total Protein (5-11.8) mg/dL 09/23/16 09/23/16 09/23/16 Range/Units 15:20 15:47 15:47 Sodium 164 H* (137-145) mmol/L Chloride 127.6 H (98-107) mmol/L Carbon Dioxide 18 L (22-30) mmol/L BUN 95 H (7-17) mg/dL Creatinine 4.2 H (0.7-1.2) mg/dL Glucose (65-100) mg/dL POC Glucose (70-105) Calcium (8.4-10.2) mg/dL Phosphorus (2.5-4.5) mg/dL Alkaline Phosphatase (35-129) units/L Total Creatine Kinase (30-135) units/L CK-MB (CK-2) (0.0-4.0) ng/mL Troponin T (0.00-0.029) ng/mL C-Reactive Protein 34.40 H (0.00-1.30) mg/dL Total Protein (6.3-8.2) g/dL Albumin (3.9-5) g/dL Triglycerides (2-149) mg/dL Urine Creatinine 172.5 H (0.1-20.0) mg/dL Urine Total Protein 197 H (5-11.8) mg/dL 09/23/16 09/23/16 09/23/16 Range/Units 16:15 18:22 20:00 Sodium 159 H (137-145) mmol/L Chloride 121.9 H (98-107) mmol/L Carbon Dioxide 16 L (22-30) mmol/L BUN 94 H (7-17) mg/dL Creatinine 4.3 H (0.7-1.2) mg/dL Glucose 182 H (65-100) mg/dL POC Glucose 236 H 69 L (70-105) Calcium 7.9 L (8.4-10.2) mg/dL Phosphorus (2.5-4.5) mg/dL Alkaline Phosphatase (35-129) units/L Total Creatine Kinase (30-135) units/L CK-MB (CK-2) (0.0-4.0) ng/mL Troponin T (0.00-0.029) ng/mL C-Reactive Protein (0.00-1.30) mg/dL Total Protein (6.3-8.2) g/dL Albumin (3.9-5) g/dL Triglycerides (2-149) mg/dL Urine Creatinine (0.1-20.0) mg/dL Urine Total Protein (5-11.8) mg/dL 09/23/16 09/23/16 09/23/16 Range/Units 20:02 21:09 22:03 Sodium (137-145) mmol/L Chloride (98-107) mmol/L Carbon Dioxide (22-30) mmol/L BUN (7-17) mg/dL Creatinine (0.7-1.2) mg/dL Glucose (65-100) mg/dL POC Glucose 167 H 263 H 229 H (70-105) Calcium (8.4-10.2) mg/dL Phosphorus (2.5-4.5) mg/dL Alkaline Phosphatase (35-129) units/L Total Creatine Kinase (30-135) units/L CK-MB (CK-2) (0.0-4.0) ng/mL Troponin T (0.00-0.029) ng/mL C-Reactive Protein (0.00-1.30) mg/dL Total Protein (6.3-8.2) g/dL Albumin (3.9-5) g/dL Triglycerides (2-149) mg/dL Urine Creatinine (0.1-20.0) mg/dL Urine Total Protein (5-11.8) mg/dL 09/24/16 09/24/16 09/24/16 Range/Units 00:47 01:09 02:02 Sodium (137-145) mmol/L Chloride (98-107) mmol/L Carbon Dioxide (22-30) mmol/L BUN (7-17) mg/dL Creatinine (0.7-1.2) mg/dL Glucose (65-100) mg/dL POC Glucose 149 H 128 H (70-105) Calcium (8.4-10.2) mg/dL Phosphorus (2.5-4.5) mg/dL Alkaline Phosphatase (35-129) units/L Total Creatine Kinase (30-135) units/L CK-MB (CK-2) (0.0-4.0) ng/mL Troponin T 0.131 H* D (0.00-0.029) ng/mL C-Reactive Protein (0.00-1.30) mg/dL Total Protein (6.3-8.2) g/dL Albumin (3.9-5) g/dL Triglycerides (2-149) mg/dL Urine Creatinine (0.1-20.0) mg/dL Urine Total Protein (5-11.8) mg/dL 09/24/16 09/24/16 09/24/16 Range/Units 03:06 04:07 04:29 Sodium (137-145) mmol/L Chloride (98-107) mmol/L Carbon Dioxide (22-30) mmol/L BUN (7-17) mg/dL Creatinine (0.7-1.2) mg/dL Glucose (65-100) mg/dL POC Glucose 144 H 131 H (70-105) Calcium (8.4-10.2) mg/dL Phosphorus 1.6 L (2.5-4.5) mg/dL Alkaline Phosphatase (35-129) units/L Total Creatine Kinase (30-135) units/L CK-MB (CK-2) (0.0-4.0) ng/mL Troponin T (0.00-0.029) ng/mL C-Reactive Protein (0.00-1.30) mg/dL Total Protein (6.3-8.2) g/dL Albumin (3.9-5) g/dL Triglycerides (2-149) mg/dL Urine Creatinine (0.1-20.0) mg/dL Urine Total Protein (5-11.8) mg/dL 09/24/16 09/24/16 09/24/16 Range/Units 04:29 06:03 07:42 Sodium (137-145) mmol/L Chloride (98-107) mmol/L Carbon Dioxide (22-30) mmol/L BUN (7-17) mg/dL Creatinine (0.7-1.2) mg/dL Glucose (65-100) mg/dL POC Glucose 200 H 160 H (70-105) Calcium (8.4-10.2) mg/dL Phosphorus (2.5-4.5) mg/dL Alkaline Phosphatase (35-129) units/L Total Creatine Kinase (30-135) units/L CK-MB (CK-2) (0.0-4.0) ng/mL Troponin T 0.111 H* (0.00-0.029) ng/mL C-Reactive Protein (0.00-1.30) mg/dL Total Protein (6.3-8.2) g/dL Albumin (3.9-5) g/dL Triglycerides (2-149) mg/dL Urine Creatinine (0.1-20.0) mg/dL Urine Total Protein (5-11.8) mg/dL 09/24/16 09/24/16 09/24/16 Range/Units 08:19 09:05 10:00 Sodium 154 H (137-145) mmol/L Chloride 120.2 H (98-107) mmol/L Carbon Dioxide 16 L (22-30) mmol/L BUN 88 H (7-17) mg/dL Creatinine 4.3 H (0.7-1.2) mg/dL Glucose 118 H (65-100) mg/dL POC Glucose 113 H 148 H (70-105) Calcium 8.0 L (8.4-10.2) mg/dL Phosphorus (2.5-4.5) mg/dL Alkaline Phosphatase 157 H (35-129) units/L Total Creatine Kinase (30-135) units/L CK-MB (CK-2) (0.0-4.0) ng/mL Troponin T (0.00-0.029) ng/mL C-Reactive Protein (0.00-1.30) mg/dL Total Protein 6.0 L (6.3-8.2) g/dL Albumin 3.1 L (3.9-5) g/dL Triglycerides (2-149) mg/dL Urine Creatinine (0.1-20.0) mg/dL Urine Total Protein (5-11.8) mg/dL
--- NOTE | 2016-09-24 14:07 | Cat Scan Report ---
CT HEAD WITHOUT CONTRAST: HISTORY: Altered mental status. Serial contiguous axial images were obtained through the cranium. Intravenous contrast material was not administered. The ventricles are normal in size and appearance. There is no mass effect or midline shift. No areas of abnormally increased or decreased attenuation are seen. No mass lesion is seen. The mastoid air cells and visualized portions of the sinuses are normal. IMPRESSION: Cranial CT scan within normal limits.
[2016-09-24 14:46] LABS: Hematocrit 35.5 % (30.3-42.9); Hemoglobin 11.2 gm/dl (10.1-14.3)
[2016-09-24] MEDS ORDERED: LEVAQUIN 750MG/150ML 750 MG/150 ML BAG IV SCH (15:00)
[2016-09-24 21:35] LABS: Hematocrit 35.8 % (30.3-42.9); Hemoglobin 11.5 gm/dl (10.1-14.3)
[2016-09-25 06:42] LABS: Basophils % (Auto) 0.3 % (0.0-1.8); Eosinophils % (Auto) 1.6 % (0.0-4.3); Hematocrit 35.9 % (30.3-42.9); Hemoglobin 11.7 gm/dl (10.1-14.3); Mean Corpuscular HGB Conc 32 % (30-34); Mean Corpuscular Hemoglobin 27 pg (28-32); Mean Corpuscular Volume 84 fl (79-97); Platelet Count 179 K/mm3 (140-440); Red Cell Distribution Width 17.6 % (13.2-15.2)
[2016-09-25 06:48] LABS: BUN/Creatinine Ratio 17.8; Chloride 115.3 mmol/L (98-107); Magnesium 2.4 mg/dL (1.7-2.3); Phosphorous 3.2 mg/dL (2.5-4.5); Potassium 4.4 mmol/L (3.6-5.0)
[2016-09-25] MEDS: PEPCID PO SCH (09:05)
[2016-09-25] MEDS: TUMS PO SCH ×2 (09:05→22:10)
[2016-09-25] MEDS: LOPRESSOR PO SCH ×2 (09:05→22:08)
[2016-09-25] MEDS: LOVENOX SUB-Q SCH (09:06)
--- NOTE | 2016-09-25 11:00 | Progress Note ---
Assessment and Plan - Patient Problems (1) Anemia Current Visit: Yes Status: Acute Qualifiers: Anemia type: A Iron deficiency anemia type: I Vitamin B12 deficiency anemia type: V Folate deficiency anemia type: F Bone marrow failure anemia type: B Hemolytic anemia type: H Other causes of anemia: O Plan to address problem: - s/p PRBC transfusion - G.I. evaluation appropriate - iron studies - H&H holding - follow clinically (2) DKA (diabetic ketoacidoses) Current Visit: Yes Status: Acute Qualifiers: Diabetes mellitus type: D Diabetes mellitus complication detail: D Diabetes mellitus alf insulin use: D Plan to address problem: - resolved - started long acting insulin - continue SSI (3) Acute renal failure Current Visit: No Status: Acute Qualifiers: Acute renal failure type: A Plan to address problem: - improving - hypernatremia also improving - per nephrology Subjective Date of service: 09/25/16 Principal diagnosis: Acute renal failure; DKA Interval history: Seen and examined at bedside; 24 hour events reviewed; nursing and respiratory care staff consulted; no adverse overnight events reported to me; resting peacefully in bed; doing better; denies acute chest pains or increased SOB Objective Vital Signs - 12hr 09/25/16 09/25/16 09/25/16 00:00 04:00 07:59 Temperature 98.2 F 97.8 F Pulse Rate Pulse Rate [ From Monitor] Pulse Rate [ 98 H 89 Left] Respiratory 19 20 Rate Blood Pressure 145/84 133/82 Blood Pressure [Left Arm] O2 Sat by Pulse 97 100 100 Oximetry 09/25/16 09/25/16 08:00 09:05 Temperature 97.4 F L Pulse Rate 90 Pulse Rate [ 95 H From Monitor] Pulse Rate [ Left] Respiratory 20 Rate Blood Pressure 144/88 Blood Pressure 148/88 [Left Arm] O2 Sat by Pulse 100 Oximetry Constitutional: no acute distress Eyes: non-icteric ENT: oropharynx moist Neck: supple, no lymphadenopathy Effort: normal Ascultation: Bilateral: clear Cardiovascular: regular rate and rhythm Gastrointestinal: normoactive bowel sounds, soft, non-tender, non-distended Integumentary: normal Extremities: no cyanosis, no edema, pulses normal, no ischemia or petechiae Neurologic: normal mental status, non-focal exam, pupils equal and round, motor strength normal and Psychiatric: mood appropriate, affect normal CBC and BMP: 04/21/17 05:43 09/27/16 06:09 ABG, PT/INR, D-dimer: PT/INR, D-dimer PT 19.3 Sec. (12.2-14.9) H 09/22/16 15:05 INR 1.63 (0.87-1.13) H 09/22/16 15:05 Abnormal lab findings: Abnormal Labs 09/22/16 09/22/16 09/22/16 17:01 18:52 20:14 Hct MCH RDW Seg Neutrophils % Sodium Potassium 6.1 H* Chloride Carbon Dioxide 3 L* BUN 107 H Creatinine 4.8 H Glucose 1429 H* POC Glucose > 500 H > 500 H Calcium 6.9 L D Phosphorus Magnesium Alkaline Phosphatase Total Creatine Kinase CK-MB (CK-2) Troponin T C-Reactive Protein Total Protein Albumin Triglycerides Urine Creatinine Urine Total Protein 09/22/16 09/22/16 09/22/16 21:06 22:15 23:10 Hct MCH RDW Seg Neutrophils % Sodium Potassium Chloride Carbon Dioxide BUN Creatinine Glucose POC Glucose > 500 H > 500 H > 500 H Calcium Phosphorus Magnesium Alkaline Phosphatase Total Creatine Kinase CK-MB (CK-2) Troponin T C-Reactive Protein Total Protein Albumin Triglycerides Urine Creatinine Urine Total Protein 09/22/16 09/22/16 09/22/16 23:26 23:26 23:52 Hct MCH RDW Seg Neutrophils % Sodium 158 H D Potassium 3.2 L D Chloride 124.2 H Carbon Dioxide 10 L D BUN 87 H Creatinine 3.6 H Glucose 511 H* POC Glucose 472 H Calcium 6.2 L Phosphorus Magnesium 2.9 H Alkaline Phosphatase Total Creatine Kinase CK-MB (CK-2) Troponin T C-Reactive Protein Total Protein Albumin Triglycerides Urine Creatinine Urine Total Protein 09/23/16 09/23/16 09/23/16 01:03 01:29 01:56 Hct 43.7 H D MCH RDW Seg Neutrophils % Sodium Potassium Chloride Carbon Dioxide BUN Creatinine Glucose POC Glucose 297 H 226 H Calcium Phosphorus Magnesium Alkaline Phosphatase Total Creatine Kinase CK-MB (CK-2) Troponin T C-Reactive Protein Total Protein Albumin Triglycerides Urine Creatinine Urine Total Protein 09/23/16 09/23/16 09/23/16 03:04 04:00 04:54 Hct MCH RDW Seg Neutrophils % Sodium 166 H* D Potassium Chloride 125.4 H Carbon Dioxide 17 L D BUN 95 H Creatinine 4.6 H Glucose 128 H POC Glucose 115 H 117 H Calcium Phosphorus Magnesium Alkaline Phosphatase Total Creatine Kinase CK-MB (CK-2) Troponin T C-Reactive Protein Total Protein Albumin Triglycerides Urine Creatinine Urine Total Protein 09/23/16 09/23/16 09/23/16 05:48 05:48 06:55 Hct MCH RDW Seg Neutrophils % Sodium 165 H* Potassium Chloride 127.1 H Carbon Dioxide 19 L BUN 96 H Creatinine 4.2 H Glucose POC Glucose 115 H Calcium Phosphorus 1.7 L D Magnesium 3.5 H Alkaline Phosphatase Total Creatine Kinase CK-MB (CK-2) Troponin T C-Reactive Protein Total Protein Albumin Triglycerides Urine Creatinine Urine Total Protein 09/23/16 09/23/16 09/23/16 08:19 08:44 10:02 Hct [facility] RDW Seg Neutrophils % Sodium 166 H* Potassium Chloride 128.7 H Carbon Dioxide 18 L BUN 97 H Creatinine 4.4 H Glucose POC Glucose 124 H 42 L Calcium Phosphorus Magnesium Alkaline Phosphatase Total Creatine Kinase CK-MB (CK-2) Troponin T C-Reactive Protein Total Protein Albumin Triglycerides Urine Creatinine Urine Total Protein 09/23/16 09/23/16 09/23/16 12:02 13:19 14:02 Hct [facility] RDW Seg Neutrophils % Sodium Potassium Chloride Carbon Dioxide BUN Creatinine Glucose POC Glucose 289 H 158 H Calcium Phosphorus Magnesium Alkaline Phosphatase Total Creatine Kinase 162 H CK-MB (CK-2) 4.3 H Troponin T 0.192 H* C-Reactive Protein Total Protein Albumin Triglycerides 171 H Urine Creatinine Urine Total Protein 09/23/16 09/23/16 09/23/16 15:20 15:47 15:47 Hct [facility] RDW Seg Neutrophils % Sodium 164 H* Potassium Chloride 127.6 H Carbon Dioxide 18 L BUN 95 H Creatinine 4.2 H Glucose POC Glucose Calcium Phosphorus Magnesium Alkaline Phosphatase Total Creatine Kinase CK-MB (CK-2) Troponin T C-Reactive Protein 34.40 H Total Protein Albumin Triglycerides Urine Creatinine 172.5 H Urine Total Protein 197 H 09/23/16 09/23/16 09/23/16 16:15 18:22 20:00 Hct [facility] RDW Seg Neutrophils % Sodium 159 H Potassium Chloride 121.9 H Carbon Dioxide 16 L BUN 94 H Creatinine 4.3 H Glucose 182 H POC Glucose 236 H 69 L Calcium 7.9 L Phosphorus Magnesium Alkaline Phosphatase Total Creatine Kinase CK-MB (CK-2) Troponin T C-Reactive Protein Total Protein Albumin Triglycerides Urine Creatinine Urine Total Protein 09/23/16 09/23/16 09/23/16 20:02 21:09 22:03 Hct MCH RDW Seg Neutrophils % Sodium Potassium Chloride Carbon Dioxide BUN Creatinine Glucose POC Glucose 167 H 263 H 229 H Calcium Phosphorus Magnesium Alkaline Phosphatase Total Creatine Kinase CK-MB (CK-2) Troponin T C-Reactive Protein Total Protein Albumin Triglycerides Urine Creatinine Urine Total Protein 09/24/16 09/24/16 09/24/16 00:47 01:09 02:02 Hct MCH RDW Seg Neutrophils % Sodium Potassium Chloride Carbon Dioxide BUN Creatinine Glucose POC Glucose 149 H 128 H Calcium Phosphorus Magnesium Alkaline Phosphatase Total Creatine Kinase CK-MB (CK-2) Troponin T 0.131 H* D C-Reactive Protein Total Protein Albumin Triglycerides Urine Creatinine Urine Total Protein 09/24/16 09/24/16 09/24/16 03:06 04:07 04:29 Hct MCH RDW Seg Neutrophils % Sodium Potassium Chloride Carbon Dioxide BUN Creatinine Glucose POC Glucose 144 H 131 H Calcium Phosphorus 1.6 L Magnesium Alkaline Phosphatase Total Creatine Kinase CK-MB (CK-2) Troponin T C-Reactive Protein Total Protein Albumin Triglycerides Urine Creatinine Urine Total Protein 09/24/16 09/24/16 09/24/16 04:29 06:03 07:42 Hct MCH RDW Seg Neutrophils % Sodium Potassium Chloride Carbon Dioxide BUN Creatinine Glucose POC Glucose 200 H 160 H Calcium Phosphorus Magnesium Alkaline Phosphatase Total Creatine Kinase CK-MB (CK-2) Troponin T 0.111 H* C-Reactive Protein Total Protein Albumin Triglycerides Urine Creatinine Urine Total Protein 09/24/16 09/24/16 09/24/16 08:19 09:05 10:00 Hct MCH RDW Seg Neutrophils % Sodium 154 H Potassium Chloride 120.2 H Carbon Dioxide 16 L BUN 88 H Creatinine 4.3 H Glucose 118 H POC Glucose 113 H 148 H Calcium 8.0 L Phosphorus Magnesium Alkaline Phosphatase 157 H Total Creatine Kinase CK-MB (CK-2) Troponin T C-Reactive Protein Total Protein 6.0 L Albumin 3.1 L Triglycerides Urine Creatinine Urine Total Protein 09/24/16 09/24/16 09/24/16 11:03 12:14 14:31 Hct MCH RDW Seg Neutrophils % Sodium Potassium Chloride Carbon Dioxide BUN Creatinine Glucose POC Glucose 210 H 273 H Calcium Phosphorus Magnesium Alkaline Phosphatase Total Creatine Kinase CK-MB (CK-2) Troponin T 0.057 H D C-Reactive Protein Total Protein Albumin Triglycerides Urine Creatinine Urine Total Protein 09/24/16 09/24/16 09/24/16 16:51 20:55 22:00 Hct MCH RDW Seg Neutrophils % Sodium Potassium Chloride Carbon Dioxide BUN Creatinine Glucose POC Glucose 232 H 213 H Calcium Phosphorus Magnesium Alkaline Phosphatase Total Creatine Kinase CK-MB (CK-2) Troponin T 0.046 H C-Reactive Protein Total Protein Albumin Triglycerides Urine Creatinine Urine Total Protein 09/25/16 09/25/16 05:43 05:43 Hct MCH 27 L RDW 17.6 H Seg Neutrophils % 76.7 H Sodium 151 H Potassium Chloride 115.3 H Carbon Dioxide 19 L BUN 73 H Creatinine 4.1 H Glucose 303 H POC Glucose Calcium 8.0 L Phosphorus Magnesium 2.4 H Alkaline Phosphatase Total Creatine Kinase CK-MB (CK-2) Troponin T C-Reactive Protein Total Protein Albumin Triglycerides Urine Creatinine Urine Total Protein
--- NOTE | 2016-09-25 11:58 | Progress Note ---
Assessment and Plan - Patient Problems (1) Acute kidney failure with tubular necrosis Current Visit: Yes Status: Acute Plan to address problem: Prerenal azotemia versus acute tubular necrosis secondary to hypotension r/o sepsis. Serologies negative so far. PADILLA function improving slowly. Monitor electrolytes and renal function closely. Hopefully kidney function keeps improving so we can avoid dialysis (2) DKA (diabetic ketoacidoses) Current Visit: Yes Status: Acute Qualifiers: Diabetes mellitus type: D Diabetes mellitus complication detail: D Diabetes mellitus usp insulin use: D Plan to address problem: Resolved. Continue management by hospitalist (3) Hypotension Current Visit: Yes Status: Acute Qualifiers: Hypotension type: H Trimester: T Plan to address problem: Blood pressure has improved. (4) Anemia Current Visit: Yes Status: Acute Qualifiers: Anemia type: A Iron deficiency anemia type: I Vitamin B12 deficiency anemia type: V Folate deficiency anemia type: F Bone marrow failure anemia type: B Hemolytic anemia type: H Other causes of anemia: O Plan to address problem: Follow-up hemoglobin (5) Hypocalcemia Current Visit: Yes Status: Acute (6) Chronic kidney disease, stage III (moderate) Current Visit: Yes Status: Acute Plan to address problem: Presumed stage III chronic kidney disease. (7) Hypertensive chronic kidney disease with stage 1 through stage 4 chronic kidney disease, or unspecified chronic kidney disease Current Visit: Yes Status: Acute Plan to address problem: Blood pressure is improving. Continue to monitor blood pressure closely (8) Diabetes 1.5, managed as type 1 Current Visit: No Status: Chronic Plan to address problem: Blood sugar management by primary attending (9) Acute hypernatremia Current Visit: Yes Status: Acute Plan to address problem: Sodium improving. Continue free water replacement and follow-up sodium (10) Hypocalcemia Current Visit: Yes Status: Acute Plan to address problem: follow-up levels and supplement as indicated (11) Altered mental status Current Visit: Yes Status: Acute Qualifiers: Altered mental status type: A Coma depth: C Coma timing: C Plan to address problem: mental status has improved. (12) Hypophosphatemia Current Visit: Yes Status: Acute Plan to address problem: Phosphorus is now normal Subjective Date of service: 09/25/16 Principal diagnosis: Acute renal failure; DKA Interval history: Patient seen lying in bed. She is more awake this morning. She complains of nausea. Was about to start eating her lunch.. Objective - Exam Narrative Exam: Frail middle-age -[place]aj[place] female and asthenic biuld Lying in bed in no acute distress Neck supple, no thyromegaly no jugular venous distention CVS S1-S2 tachycardic without murmur, rub or gallop Chest clear to auscultation Abdomen soft nondistended tender no organomegaly no bruit bowel sounds present Extremities trace edema no cyanosis or clubbing Neuro awake, alert, moving all extremities - Vital Signs Vital signs: Vital Signs - 12hr 09/25/16 09/25/16 09/25/16 00:00 04:00 07:59 Temperature 98.2 F 97.8 F Pulse Rate Pulse Rate [ From Monitor] Pulse Rate [ 98 H 89 Left] Respiratory 19 20 Rate Blood Pressure 145/84 133/82 Blood Pressure [Left Arm] O2 Sat by Pulse 97 100 100 Oximetry 09/25/16 09/25/16 08:00 09:05 Temperature 97.4 F L Pulse Rate 90 Pulse Rate [ 95 H From Monitor] Pulse Rate [ Left] Respiratory 20 Rate Blood Pressure 144/88 Blood Pressure 148/88 [Left Arm] O2 Sat by Pulse 100 Oximetry - Lab 09/25/16 05:43 09/25/16 05:43 Most recent lab results Calcium 8.0 mg/dL (8.4-10.2) L 09/25/16 05:43 Phosphorus 3.2 mg/dL (2.5-4.5) D 09/25/16 05:43 Magnesium 2.4 mg/dL (1.7-2.3) H 09/25/16 05:43 Urine Creatinine 172.5 mg/dL (0.1-20.0) H 09/23/16 15:20 Urine Sodium 58 mEq/L 09/23/16 15:20 Urine Total Protein 197 mg/dL (5-11.8) H 09/23/16 15:20
--- NOTE | 2016-09-25 14:15 | Progress Note ---
Assessment and Plan 46 yo AAF with Hx of DM insulin-dependent who was brought to the hospital on account of altered mental status, and lethargic for 2-3 days. Blood pressure the ER was 88/49 mmHg. Blood sugar was 1405 mg/dL on presentation and improved very rapidly on starting insulin drip. But sodium had increased to 166 mmol per liter, placed on hypotonic solution. Acute metabolic encephalopathy - likely due to severe acidosis and hypernatremia - improved with hypotonic iv fluid and insulin drip Severe DKA - resolved - now insulin drip d/adrienne - cont on subcu insulin and ADA diet - adjust insulin as needed Severe anemia - s/p PRBC transfusion - check stool for occult blood hypernatremia - cont hypotonic solution - Na 151 today ASHELY with ATN - cont to monitor renal function - nephrology following Malnutrition - nutrition consulted Severe metabolic acidosis - due to DKA and renal failure - monitor BMP d/c when renal function improves Subjective Date of service: 09/25/16 Principal diagnosis: Acute renal failure; DKA Interval history: Pt seen and examined Mental status much improved Na level was 151 this am BG level improved c/o nausea and vomiting Objective - Exam Narrative Exam: General appearance: Present: cachectic, - EENT Eyes: PERRL, EOM intact ENT: hearing intact, no thrush, no ulcerations Ears: bilateral: normal - Neck Neck: supple, normal ROM - Respiratory Respiratory effort: normal Respiratory: bilateral: CTA - Cardiovascular Rhythm: regular Heart Sounds: Present: S1 & S2. Absent: gallop, rub Extremities: pulses intact, No edema, normal color, Full ROM - Gastrointestinal General gastrointestinal: Present: soft, non-tender, non-distended, normal bowel sounds - Integumentary Integumentary: clear, warm, dry - Musculoskeletal Musculoskeletal: 1, strength equal bilaterally - Neurologic Neurologic: moves all extremities - Psychiatric Psychiatric: cooperative - Constitutional Vitals: Vital Signs - 12hr 09/25/16 09/25/16 09/25/16 04:00 07:59 08:00 Temperature 97.8 F 97.4 F L Pulse Rate Pulse Rate [ 95 H From Monitor] Pulse Rate [ 89 Left] Respiratory 20 20 Rate Blood Pressure 133/82 Blood Pressure 148/88 [Left Arm] O2 Sat by Pulse 100 100 100 Oximetry 09/25/16 09/25/16 09/25/16 09:05 12:00 12:27 Temperature 98.6 F Pulse Rate 90 Pulse Rate [ 96 H 90 From Monitor] Pulse Rate [ Left] Respiratory 20 Rate Blood Pressure 144/88 Blood Pressure 137/82 [Left Arm] O2 Sat by Pulse 100 98 Oximetry 09/25/16 13:50 Temperature Pulse Rate 101 H Pulse Rate [ From Monitor] Pulse Rate [ Left] Respiratory Rate Blood Pressure Blood Pressure [Left Arm] O2 Sat by Pulse Oximetry - Labs CBC & Chem 7: 09/25/16 05:43 09/25/16 05:43 Labs: Abnormal lab results 09/24/16 09/24/16 09/24/16 Range/Units 14:31 16:51 20:55 MCH (28-32) pg RDW (13.2-15.2) % Seg Neutrophils % (40.0-70.0) % Sodium (137-145) mmol/L Chloride (98-107) mmol/L Carbon Dioxide (22-30) mmol/L BUN (7-17) mg/dL Creatinine (0.7-1.2) mg/dL Glucose (65-100) mg/dL POC Glucose 232 H (70-105) Calcium (8.4-10.2) mg/dL Magnesium (1.7-2.3) mg/dL Troponin T 0.057 H D 0.046 H (0.00-0.029) ng/mL 09/24/16 09/25/16 09/25/16 Range/Units 22:00 05:43 05:43 MCH 27 L (28-32) pg RDW 17.6 H (13.2-15.2) % Seg Neutrophils % 76.7 H (40.0-70.0) % Sodium 151 H (137-145) mmol/L Chloride 115.3 H (98-107) mmol/L Carbon Dioxide 19 L (22-30) mmol/L BUN 73 H (7-17) mg/dL Creatinine 4.1 H (0.7-1.2) mg/dL Glucose 303 H (65-100) mg/dL POC Glucose 213 H (70-105) Calcium 8.0 L (8.4-10.2) mg/dL Magnesium 2.4 H (1.7-2.3) mg/dL Troponin T (0.00-0.029) ng/mL
[2016-09-25] MEDS: ZOFRAN IV PRN (17:23)
[2016-09-26 03:53] LABS: BUN/Creatinine Ratio 17.69; Chloride 112.2 mmol/L (98-107); Potassium 5.2 mmol/L (3.6-5.0)
[2016-09-26] MEDS: LOPRESSOR PO SCH ×2 (10:41→22:57)
[2016-09-26] MEDS: LEVAQUIN PO SCH (10:41)
[2016-09-26] MEDS: PEPCID PO SCH (10:42)
[2016-09-26] MEDS: LOVENOX SUB-Q SCH (10:42)
[2016-09-26] MEDS: TUMS PO SCH ×2 (10:42→22:58)
[2016-09-26] MEDS ORDERED: KIONEX PO ONE (13:00)
--- NOTE | 2016-09-26 13:14 | Progress Note ---
Assessment and Plan - Patient Problems (1) Anemia Current Visit: Yes Status: Acute Qualifiers: Anemia type: A Iron deficiency anemia type: I Vitamin B12 deficiency anemia type: V Folate deficiency anemia type: F Bone marrow failure anemia type: B Hemolytic anemia type: H Other causes of anemia: O Plan to address problem: - s/p PRBC transfusion - G.I. evaluation appropriate - iron studies - H&H holding - follow clinically (2) DKA (diabetic ketoacidoses) Current Visit: Yes Status: Acute Qualifiers: Diabetes mellitus type: D Diabetes mellitus complication detail: D Diabetes mellitus assisted insulin use: D Plan to address problem: - resolved - started long acting insulin - continue SSI (3) Acute renal failure Current Visit: No Status: Acute Qualifiers: Acute renal failure type: A Plan to address problem: - improving slowly - follow I's & O's - correct electrolytes as necessary - per nephrology (4) Discharge planning issues Current Visit: No Status: Acute Subjective Date of service: 09/26/16 Principal diagnosis: Acute renal failure; DKA Interval history: Seen and examined at bedside; 24 hour events reviewed; nursing and respiratory care staff consulted; no adverse overnight events reported to me; resting peacefully in bed; smiling; more talkative; no N/V/F/C Objective Vital Signs - 12hr 09/26/16 09/26/16 09/26/16 05:54 08:29 10:00 Temperature 98.1 F 98.7 F Pulse Rate [ 83 78 From Monitor] Respiratory 20 20 Rate Blood Pressure 143/83 150/89 [Left Arm] O2 Sat by Pulse 100 98 100 Oximetry Constitutional: no acute distress Eyes: non-icteric ENT: oropharynx moist Neck: supple, no lymphadenopathy Effort: normal Ascultation: Bilateral: clear Cardiovascular: regular rate and rhythm Gastrointestinal: normoactive bowel sounds, soft, non-tender, non-distended Integumentary: normal Extremities: no cyanosis, no edema, pulses normal, no ischemia or petechiae Neurologic: normal mental status, non-focal exam, pupils equal and round, motor strength normal and Psychiatric: mood appropriate, affect normal CBC and BMP: 09/25/16 05:43 09/27/16 06:09 ABG, PT/INR, D-dimer: PT/INR, D-dimer PT 19.3 Sec. (12.2-14.9) H 09/22/16 15:05 INR 1.63 (0.87-1.13) H 09/22/16 15:05 Abnormal lab findings: Abnormal Labs 09/22/16 09/22/16 09/22/16 17:01 18:52 20:14 Hct MCH RDW Seg Neutrophils % Sodium Potassium 6.1 H* Chloride Carbon Dioxide 3 L* BUN 107 H Creatinine 4.8 H Glucose 1429 H* POC Glucose > 500 H > 500 H Calcium 6.9 L D Phosphorus Magnesium Alkaline Phosphatase Total Creatine Kinase CK-MB (CK-2) Troponin T C-Reactive Protein Total Protein Albumin Triglycerides Urine Creatinine Urine Total Protein 09/22/16 09/22/16 09/22/16 21:06 22:15 23:10 Hct MCH RDW Seg Neutrophils % Sodium Potassium Chloride Carbon Dioxide BUN Creatinine Glucose POC Glucose > 500 H > 500 H > 500 H Calcium Phosphorus Magnesium Alkaline Phosphatase Total Creatine Kinase CK-MB (CK-2) Troponin T C-Reactive Protein Total Protein Albumin Triglycerides Urine Creatinine Urine Total Protein 09/22/16 09/22/16 09/22/16 23:26 23:26 23:52 Hct MCH RDW Seg Neutrophils % Sodium 158 H D Potassium 3.2 L D Chloride 124.2 H Carbon Dioxide 10 L D BUN 87 H Creatinine 3.6 H Glucose 511 H* POC Glucose 472 H Calcium 6.2 L Phosphorus Magnesium 2.9 H Alkaline Phosphatase Total Creatine Kinase CK-MB (CK-2) Troponin T C-Reactive Protein Total Protein Albumin Triglycerides Urine Creatinine Urine Total Protein 09/23/16 09/23/16 09/23/16 01:03 01:29 01:56 Hct 43.7 H D MCH RDW Seg Neutrophils % Sodium Potassium Chloride Carbon Dioxide BUN Creatinine Glucose POC Glucose 297 H 226 H Calcium Phosphorus Magnesium Alkaline Phosphatase Total Creatine Kinase CK-MB (CK-2) Troponin T C-Reactive Protein Total Protein Albumin Triglycerides Urine Creatinine Urine Total Protein 09/23/16 09/23/16 09/23/16 03:04 04:00 04:54 Hct MCH RDW Seg Neutrophils % Sodium 166 H* D Potassium Chloride 125.4 H Carbon Dioxide 17 L D BUN 95 H Creatinine 4.6 H Glucose 128 H POC Glucose 115 H 117 H Calcium Phosphorus Magnesium Alkaline Phosphatase Total Creatine Kinase CK-MB (CK-2) Troponin T C-Reactive Protein Total Protein Albumin Triglycerides Urine Creatinine Urine Total Protein 09/23/16 09/23/16 09/23/16 05:48 05:48 06:55 Hct MCH RDW Seg Neutrophils % Sodium 165 H* Potassium Chloride 127.1 H Carbon Dioxide 19 L BUN 96 H Creatinine 4.2 H Glucose POC Glucose 115 H Calcium Phosphorus 1.7 L D Magnesium 3.5 H Alkaline Phosphatase Total Creatine Kinase CK-MB (CK-2) Troponin T C-Reactive Protein Total Protein Albumin Triglycerides Urine Creatinine Urine Total Protein 09/23/16 09/23/16 09/23/16 08:19 08:44 10:02 Hct MCH RDW Seg Neutrophils % Sodium 166 H* Potassium Chloride 128.7 H Carbon Dioxide 18 L BUN 97 H Creatinine 4.4 H Glucose POC Glucose 124 H 42 L Calcium Phosphorus Magnesium Alkaline Phosphatase Total Creatine Kinase CK-MB (CK-2) Troponin T C-Reactive Protein Total Protein Albumin Triglycerides Urine Creatinine Urine Total Protein 09/23/16 09/23/16 09/23/16 12:02 13:19 14:02 Hct MCH RDW Seg Neutrophils % Sodium Potassium Chloride Carbon Dioxide BUN Creatinine Glucose POC Glucose 289 H 158 H Calcium Phosphorus Magnesium Alkaline Phosphatase Total Creatine Kinase 162 H CK-MB (CK-2) 4.3 H Troponin T 0.192 H* C-Reactive Protein Total Protein Albumin Triglycerides 171 H Urine Creatinine Urine Total Protein 09/23/16 09/23/16 09/23/16 15:20 15:47 15:47 Hct MCH RDW Seg Neutrophils % Sodium 164 H* Potassium Chloride 127.6 H Carbon Dioxide 18 L BUN 95 H Creatinine 4.2 H Glucose POC Glucose Calcium Phosphorus Magnesium Alkaline Phosphatase Total Creatine Kinase CK-MB (CK-2) Troponin T C-Reactive Protein 34.40 H Total Protein Albumin Triglycerides Urine Creatinine 172.5 H Urine Total Protein 197 H 09/23/16 09/23/16 09/23/16 16:15 18:22 20:00 Hct MCH RDW Seg Neutrophils % Sodium 159 H Potassium Chloride 121.9 H Carbon Dioxide 16 L BUN 94 H Creatinine 4.3 H Glucose 182 H POC Glucose 236 H 69 L Calcium 7.9 L Phosphorus Magnesium Alkaline Phosphatase Total Creatine Kinase CK-MB (CK-2) Troponin T C-Reactive Protein Total Protein Albumin Triglycerides Urine Creatinine Urine Total Protein 09/23/16 09/23/16 09/23/16 20:02 21:09 22:03 Hct MCH RDW Seg Neutrophils % Sodium Potassium Chloride Carbon Dioxide BUN Creatinine Glucose POC Glucose 167 H 263 H 229 H Calcium Phosphorus Magnesium Alkaline Phosphatase Total Creatine Kinase CK-MB (CK-2) Troponin T C-Reactive Protein Total Protein Albumin Triglycerides Urine Creatinine Urine Total Protein 09/24/16 09/24/16 09/24/16 00:47 01:09 02:02 Hct MCH RDW Seg Neutrophils % Sodium Potassium Chloride Carbon Dioxide BUN Creatinine Glucose POC Glucose 149 H 128 H Calcium Phosphorus Magnesium Alkaline Phosphatase Total Creatine Kinase CK-MB (CK-2) Troponin T 0.131 H* D C-Reactive Protein Total Protein Albumin Triglycerides Urine Creatinine Urine Total Protein 09/24/16 09/24/16 09/24/16 03:06 04:07 04:29 Hct MCH RDW Seg Neutrophils % Sodium Potassium Chloride Carbon Dioxide BUN Creatinine Glucose POC Glucose 144 H 131 H Calcium Phosphorus 1.6 L Magnesium Alkaline Phosphatase Total Creatine Kinase CK-MB (CK-2) Troponin T C-Reactive Protein Total Protein Albumin Triglycerides Urine Creatinine Urine Total Protein 09/24/16 09/24/16 09/24/16 04:29 06:03 07:42 Hct MCH RDW Seg Neutrophils % Sodium Potassium Chloride Carbon Dioxide BUN Creatinine Glucose POC Glucose 200 H 160 H Calcium Phosphorus Magnesium Alkaline Phosphatase Total Creatine Kinase CK-MB (CK-2) Troponin T 0.111 H* C-Reactive Protein Total Protein Albumin Triglycerides Urine Creatinine Urine Total Protein 09/24/16 09/24/16 09/24/16 08:19 09:05 10:00 Hct MCH RDW Seg Neutrophils % Sodium 154 H Potassium Chloride 120.2 H Carbon Dioxide 16 L BUN 88 H Creatinine 4.3 H Glucose 118 H POC Glucose 113 H 148 H Calcium 8.0 L Phosphorus Magnesium Alkaline Phosphatase 157 H Total Creatine Kinase CK-MB (CK-2) Troponin T C-Reactive Protein Total Protein 6.0 L Albumin 3.1 L Triglycerides Urine Creatinine Urine Total Protein 09/24/16 09/24/16 09/24/16 11:03 12:14 14:31 Hct MCH RDW Seg Neutrophils % Sodium Potassium Chloride Carbon Dioxide BUN Creatinine Glucose POC Glucose 210 H 273 H Calcium Phosphorus Magnesium Alkaline Phosphatase Total Creatine Kinase CK-MB (CK-2) Troponin T 0.057 H D C-Reactive Protein Total Protein Albumin Triglycerides Urine Creatinine Urine Total Protein 09/24/16 09/24/16 09/24/16 16:51 20:55 22:00 Hct MCH RDW Seg Neutrophils % Sodium Potassium Chloride Carbon Dioxide BUN Creatinine Glucose POC Glucose 232 H 213 H Calcium Phosphorus Magnesium Alkaline Phosphatase Total Creatine Kinase CK-MB (CK-2) Troponin T 0.046 H C-Reactive Protein Total Protein Albumin Triglycerides Urine Creatinine Urine Total Protein 09/25/16 09/25/16 09/25/16 05:43 05:43 08:17 Hct MCH 27 L RDW 17.6 H Seg Neutrophils % 76.7 H Sodium 151 H Potassium Chloride 115.3 H Carbon Dioxide 19 L BUN 73 H Creatinine 4.1 H Glucose 303 H POC Glucose 421 H Calcium 8.0 L Phosphorus Magnesium 2.4 H Alkaline Phosphatase Total Creatine Kinase CK-MB (CK-2) Troponin T C-Reactive Protein Total Protein Albumin Triglycerides Urine Creatinine Urine Total Protein 09/25/16 09/25/16 09/26/16 11:25 16:47 02:48 Hct [facility] RDW Seg Neutrophils % Sodium 148 H Potassium 5.2 H Chloride 112.2 H Carbon Dioxide 20 L BUN 69 H Creatinine 3.9 H Glucose 367 H POC Glucose 436 H 209 H Calcium 8.0 L Phosphorus Magnesium Alkaline Phosphatase Total Creatine Kinase CK-MB (CK-2) Troponin T C-Reactive Protein Total Protein Albumin Triglycerides Urine Creatinine Urine Total Protein 09/26/16 09/26/16 08:21 08:34 Hct MCH RDW Seg Neutrophils % Sodium Potassium Chloride Carbon Dioxide BUN Creatinine Glucose 580 H* POC Glucose > 500 H Calcium Phosphorus Magnesium Alkaline Phosphatase Total Creatine Kinase CK-MB (CK-2) Troponin T C-Reactive Protein Total Protein Albumin Triglycerides Urine Creatinine Urine Total Protein
--- NOTE | 2016-09-26 13:18 | Progress Note ---
Assessment and Plan (1) Acute kidney failure with tubular necrosis Current Visit: Yes Status: Acute Plan to address problem: Prerenal azotemia versus acute tubular necrosis secondary to hypotension. Serologies negative. Renal function improving slowly. Monitor electrolytes and renal function closely. Hopefully kidney function keeps improving so we can avoid dialysis (2) DKA (diabetic ketoacidoses) Current Visit: Yes Status: Acute Qualifiers: Diabetes mellitus type: D Diabetes mellitus complication detail: D Diabetes mellitus fci insulin use: D Plan to address problem: Continue management by hospitalist (3) Hypotension Current Visit: Yes Status: Acute Qualifiers: Hypotension type: H Trimester: T Plan to address problem: Blood pressure has improved. (4) Anemia Current Visit: Yes Status: Acute Qualifiers: Anemia type: A Iron deficiency anemia type: I Vitamin B12 deficiency anemia type: V Folate deficiency anemia type: F Bone marrow failure anemia type: B Hemolytic anemia type: H Other causes of anemia: O Plan to address problem: Stable. Follow-up hemoglobin (5) Hyperkalemia Current Visit: Yes Status: Acute Medical mangement with insulin/kayaxlate (6) Chronic kidney disease, stage III (moderate) Current Visit: Yes Status: Acute Plan to address problem: Presumed stage III chronic kidney disease. (7) Hypertensive chronic kidney disease with stage 1 through stage 4 chronic kidney disease, or unspecified chronic kidney disease Current Visit: Yes Status: Acute Plan to address problem: Blood pressure is improving. Continue to monitor blood pressure closely (8) Hypernatremia Current Visit: Yes Status: Acute Plan to address problem: Sodium improving. Continue free water replacement and follow-up sodium Subjective Date of service: 09/26/16 Principal diagnosis: Acute renal failure; DKA Interval history: No SOB, CP Wants to go home Objective - Vital Signs Vital signs: Vital Signs - 12hr 09/26/16 09/26/16 09/26/16 05:54 08:29 10:00 Temperature 98.1 F 98.7 F Pulse Rate [ 83 78 From Monitor] Respiratory 20 20 Rate Blood Pressure 143/83 150/89 [Left Arm] O2 Sat by Pulse 100 98 100 Oximetry - General Appearance General appearance: well-developed, well-nourished, appears stated age EENT: PERRL, mucous membranes moist Neck: no JVD, no thyromegaly, no carotid bruit, supple Respiratory: Present: Clear to Ascultation Cardiology: regular, normal heart rate, S1S2, no murmurs Gastrointestinal: normoactive bowel sounds, no tenderness Integumentary: no rash, warm and dry Neurologic: no focal deficit, alert and oriented x3, reflexes 2+ and symmetric, gait normal, strength 5/5 Musculoskeletal: no deformities, no erythema, no cyanosis, no clubbing Psychiatric: mood/affect appropriate, cooperative - Lab 09/25/16 05:43 09/26/16 08:34 Most recent lab results Calcium 8.0 mg/dL (8.4-10.2) L 09/26/16 02:48 Phosphorus 3.2 mg/dL (2.5-4.5) D 09/25/16 05:43 Magnesium 2.4 mg/dL (1.7-2.3) H 09/25/16 05:43 Urine Creatinine 172.5 mg/dL (0.1-20.0) H 09/23/16 15:20 Urine Sodium 58 mEq/L 09/23/16 15:20 Urine Total Protein 197 mg/dL (5-11.8) H 09/23/16 15:20
[2016-09-26] MEDS: NACL 0.45% 1000 ML 1,000 ML IV SCH (16:40)
--- NOTE | 2016-09-26 21:38 | Progress Note ---
Assessment and Plan Assessment and plan: 46 years old -[place] female with insulin-dependent diabetes brought to the hospital for altered mental status and found to be in DKA, dehydrated, hypotensive and weak with severe hypernatremia and acute renal failure 1. DKA DKA resolved with insulin drip No switched to subcutaneous insulin, but BS still significantly elevated Will discontinue NPH and start insulin 70/30 at increased dose Continue Accu-Cheks and SSI to assess insulin requirements 2. Acute renal failure Vasomotor nephropathy versus ATN secondary to hypotension superimposed on chronic kidney disease Slowly improving with IV fluids 3. Metabolic acidosis Severe on admission due to DKA and renal failure No improved, remaining likely due to renal impairment 4. Hypernatremia Continue hypotonic IV fluids Monitor sodium level 5. Hypocalcemia, hypophosphatemia Replace and recheck as needed 6. Hyperkalemia Give Kayexalate and recheck in a.m. 5. Dehydration Resolved with IV fluids 6. Acute metabolic encephalopathy Resolved treating underlying conditions, mental status back to baseline 7. Anemia Likely anemia of chronic renal disease and chronic inflammation Mild, hemoglobin in 11 range Monitor 8. Malnutrition Due to poor by mouth intake Diet supplement History Interval history: c/o nausea, but no vomiting Hospitalist Physical - Constitutional Vitals: Temp Pulse Resp BP Pulse Ox 99.2 F 89 20 125/78 100 09/26/16 20:07 09/26/16 20:07 09/26/16 20:07 09/26/16 20:07 09/26/16 20:07 General appearance: Present: no acute distress, cachectic - EENT Eyes: Present: PERRL, EOM intact. Absent: scleral icterus, conjunctival injection ENT: clear oral mucosa, edentulous - Neck Neck: Present: supple, normal ROM. Absent: masses or JVD - Respiratory Respiratory effort: normal Respiratory: bilateral: CTA, negative: rhonchi, wheezing - Cardiovascular Rhythm: regular Heart Sounds: Present: S1 & S2. Absent: systolic murmur - Extremities Extremities: no ischemia - Abdominal General gastrointestinal: soft, non-tender, non-distended, normal bowel sounds - Psychiatric Psychiatric: cooperative - Neurologic Neurologic: CNII-XII intact, no focal deficits Results - Labs CBC & Chem 7: 09/25/16 05:43 09/27/16 06:09 Labs: Laboratory Last Values WBC 10.0 K/mm3 (4.5-11.0) 09/25/16 05:43 RBC 4.30 M/mm3 (3.65-5.03) 09/25/16 05:43 Hgb 11.7 gm/dl (10.1-14.3) 09/25/16 05:43 Hct 35.9 % (30.3-42.9) 09/25/16 05:43 MCV 84 fl (79-97) D 09/25/16 05:43 MCH 27 pg (28-32) L 09/25/16 05:43 MCHC 32 % (30-34) 09/25/16 05:43 RDW 17.6 % (13.2-15.2) H 09/25/16 05:43 Plt Count 179 K/mm3 (140-440) 09/25/16 05:43 Lymph % (Auto) 15.4 % (13.4-35.0) 09/25/16 05:43 Holt % (Auto) 6.0 % (0.0-7.3) 09/25/16 05:43 Eos % (Auto) 1.6 % (0.0-4.3) 09/25/16 05:43 Baso % (Auto) 0.3 % (0.0-1.8) 09/25/16 05:43 Lymph # 1.5 K/mm3 (1.2-5.4) 09/25/16 05:43 Holt # 0.6 K/mm3 (0.0-0.8) 09/25/16 05:43 Eos # 0.2 K/mm3 (0.0-0.4) 09/25/16 05:43 Baso # 0.0 K/mm3 (0.0-0.1) 09/25/16 05:43 Add Manual Diff Complete 09/22/16 14:34 Total Counted 100 09/22/16 14:34 Seg Neutrophils % 76.7 % (40.0-70.0) H 09/25/16 05:43 Seg Neuts % (Manual) 90.0 % (40.0-70.0) H 09/22/16 14:34 Band Neutrophils % 10.0 % 09/22/16 14:34 Lymphocytes % (Manual) 0 % (13.4-35.0) L 09/22/16 14:34 Reactive Lymphs % (Man) 0 % 09/22/16 14:34 Monocytes % (Manual) 0 % (0.0-7.3) 09/22/16 14:34 Eosinophils % (Manual) 0 % (0.0-4.3) 09/22/16 14:34 Basophils % (Manual) 0 % (0.0-1.8) 09/22/16 14:34 Metamyelocytes % 0 % 09/22/16 14:34 Myelocytes % 0 % 09/22/16 14:34 Promyelocytes % 0 % 09/22/16 14:34 Blast Cells % 0 % 09/22/16 14:34 Nucleated RBC % 1.0 % (0.0-0.9) H 09/22/16 14:34 Seg Neutrophils # 7.7 K/mm3 (1.8-7.7) 09/25/16 05:43 Seg Neutrophils # Man 7.0 K/mm3 (1.8-7.7) 09/22/16 14:34 Band Neutrophils # 0.8 K/mm3 09/22/16 14:34 Lymphocytes # (Manual) 0.0 K/mm3 (1.2-5.4) L 09/22/16 14:34 Abs React Lymphs (Man) 0.0 K/mm3 09/22/16 14:34 Monocytes # (Manual) 0.0 K/mm3 (0.0-0.8) 09/22/16 14:34 Eosinophils # (Manual) 0.0 K/mm3 (0.0-0.4) 09/22/16 14:34 Basophils # (Manual) 0.0 K/mm3 (0.0-0.1) 09/22/16 14:34 Metamyelocytes # 0.0 K/mm3 09/22/16 14:34 Myelocytes # 0.0 K/mm3 09/22/16 14:34 Promyelocytes # 0.0 K/mm3 09/22/16 14:34 Blast Cells # 0.0 K/mm3 09/22/16 14:34 WBC Morphology Not Reportable 09/22/16 14:34 Hypersegmented Neuts Not Reportable 09/22/16 14:34 Hyposegmented Neuts Not Reportable 09/22/16 14:34 Hypogranular Neuts Not Reportable 09/22/16 14:34 Smudge Cells Not Reportable 09/22/16 14:34 Toxic Granulation Not Reportable 09/22/16 14:34 Toxic Vacuolation Not Reportable 09/22/16 14:34 Dohle Bodies Not Reportable 09/22/16 14:34 Pelger-Huet Anomaly Not Reportable 09/22/16 14:34 Mary Rods Not Reportable 09/22/16 14:34 Platelet Estimate Consistent w auto 09/22/16 14:34 Clumped Platelets Not Reportable 09/22/16 14:34 Plt Clumps, EDTA Not Reportable 09/22/16 14:34 Large Platelets 1+ 09/22/16 14:34 Giant Platelets Not Reportable 09/22/16 14:34 Platelet Satelliting Not Reportable 09/22/16 14:34 Plt Morphology Comment Not Reportable 09/22/16 14:34 RBC Morphology Not Reportable 09/22/16 14:34 Dimorphic RBCs Not Reportable 09/22/16 14:34 Polychromasia Not Reportable 09/22/16 14:34 Hypochromasia Not Reportable 09/22/16 14:34 Poikilocytosis 1+ 09/22/16 14:34 Anisocytosis 1+ 09/22/16 14:34 Microcytosis Not Reportable 09/22/16 14:34 Macrocytosis Not Reportable 09/22/16 14:34 Spherocytes Not Reportable 09/22/16 14:34 Pappenheimer Bodies Not Reportable 09/22/16 14:34 Sickle Cells Not Reportable 09/22/16 14:34 Target Cells Not Reportable 09/22/16 14:34 Tear Drop Cells Not Reportable 09/22/16 14:34 Ovalocytes Not Reportable 09/22/16 14:34 Helmet Cells Not Reportable 09/22/16 14:34 [place] Bodies Not Reportable 09/22/16 14:34 Josephine Rings Not Reportable 09/22/16 14:34 Adams Cells Not Reportable 09/22/16 14:34 Bite Cells Not Reportable 09/22/16 14:34 Crenated Cell Not Reportable 09/22/16 14:34 Elliptocytes Not Reportable 09/22/16 14:34 Acanthocytes (Spur) Not Reportable 09/22/16 14:34 Rouleaux Not Reportable 09/22/16 14:34 Hemoglobin C Crystals Not Reportable 09/22/16 14:34 Schistocytes Not Reportable 09/22/16 14:34 Malaria parasites Not Reportable 09/22/16 14:34 Michael Bodies Not Reportable 09/22/16 14:34 Hem Pathologist Commnt No 09/22/16 14:34 PT 19.3 Sec. (12.2-14.9) H 09/22/16 15:05 INR 1.63 (0.87-1.13) H 09/22/16 15:05 APTT 28.9 Sec. (24.2-36.6) 09/22/16 15:05 VBG pH 7.038 (7.320-7.420) L* 09/22/16 14:34 Sodium 148 mmol/L (137-145) H 09/26/16 02:48 Potassium 5.2 mmol/L (3.6-5.0) H 09/26/16 02:48 Chloride 112.2 mmol/L (98-107) H 09/26/16 02:48 Carbon Dioxide 20 mmol/L (22-30) L 09/26/16 02:48 Anion Gap 21 mmol/L 09/26/16 02:48 BUN 69 mg/dL (7-17) H 09/26/16 02:48 Creatinine 3.9 mg/dL (0.7-1.2) H 09/26/16 02:48 Estimated GFR 15 ml/min 09/26/16 02:48 BUN/Creatinine Ratio 17.69 % 09/26/16 02:48 Glucose 580 mg/dL (65-100) H* 09/26/16 08:34 POC Glucose 310 (70-105) H 09/26/16 20:31 Hemoglobin A1c 14.4 % (4-6) H 09/22/16 14:34 Lactic Acid 1.2 mmol/L (0.7-2.0) 09/22/16 14:34 Calcium 8.0 mg/dL (8.4-10.2) L 09/26/16 02:48 Phosphorus 3.2 mg/dL (2.5-4.5) D 09/25/16 05:43 Magnesium 2.4 mg/dL (1.7-2.3) H 09/25/16 05:43 Total Bilirubin < 0.2 mg/dL (0.1-1.2) 09/24/16 08:19 AST 38 units/L (5-40) 09/24/16 08:19 ALT 15 units/L (7-56) 09/24/16 08:19 Alkaline Phosphatase 157 units/L (35-129) H 09/24/16 08:19 Total Creatine Kinase 162 units/L (30-135) H 09/23/16 13:19 CK-MB (CK-2) 4.3 ng/mL (0.0-4.0) H 09/23/16 13:19 CK-MB (CK-2) Rel Index 2.6 (0-4) 09/23/16 13:19 Troponin T 0.046 ng/mL (0.00-0.029) H 09/24/16 20:55 C-Reactive Protein 34.40 mg/dL (0.00-1.30) H 09/23/16 15:47 Total Protein 6.0 g/dL (6.3-8.2) L 09/24/16 08:19 Albumin 3.1 g/dL (3.9-5) L 09/24/16 08:19 Albumin/Globulin Ratio 1.1 % 09/24/16 08:19 Triglycerides 171 mg/dL (2-149) H 09/23/16 13:19 Cholesterol 190 mg/dL (50-199) 09/23/16 13:19 LDL Cholesterol Direct 109 mg/dL (50-130) 09/23/16 13:19 HDL Cholesterol 47 mg/dL (40-59) 09/23/16 13:19 Cholesterol/HDL Ratio 4.04 % 09/23/16 13:19 TSH 0.404 mlU/mL (0.270-4.200) 09/22/16 15:05 Urine Color Straw (Yellow) 09/22/16 15:23 Urine Turbidity Clear (Clear) 09/22/16 15:23 Urine pH 8.0 (5.0-7.0) H 09/22/16 15:23 Ur Specific [place] 1.026 (1.003-1.030) 09/22/16 15:23 Urine Protein 100 mg/dl mg/dL (Negative) 09/22/16 15:23 Urine Glucose (UA) 150 mg/dL (Negative) 09/22/16 15:23 Urine Ketones 20 mg/dL (Negative) 09/22/16 15:23 Urine Blood Neg (Negative) 09/22/16 15:23 Urine Nitrite Neg (Negative) 09/22/16 15:23 Urine Bilirubin Neg (Negative) 09/22/16 15:23 Urine Urobilinogen < 2.0 mg/dL (<2.0) 09/22/16 15:23 Ur Leukocyte Esterase Neg (Negative) 09/22/16 15:23 Urine WBC (Auto) < 1.0 /HPF (0.0-6.0) 09/22/16 15:23 Urine RBC (Auto) 3.0 /HPF (0.0-6.0) 09/22/16 15:23 U Epithel Cells (Auto) < 1.0 /HPF (0-13.0) 09/22/16 15:23 Urine Creatinine 172.5 mg/dL (0.1-20.0) H 09/23/16 15:20 Urine Sodium 58 mEq/L 09/23/16 15:20 Urine Total Protein 197 mg/dL (5-11.8) H 09/23/16 15:20 Urine Opiates Screen Presumptive negative 09/22/16 15:23 Urine Methadone Screen Presumptive negative 09/22/16 15:23 Ur Barbiturates Screen Presumptive negative 09/22/16 15:23 Ur Phencyclidine Scrn Presumptive negative 09/22/16 15:23 Ur Amphetamines Screen Presumptive negative 09/22/16 15:23 U Benzodiazepines Scrn Presumptive negative 09/22/16 15:23 Urine Cocaine Screen Presumptive negative 09/22/16 15:23 U Marijuana (THC) Screen Presumptive positive 09/22/16 15:23 Drugs of Abuse Note Disclamer 09/22/16 15:23 Hep Bs Antigen Non-reactive (Negative) 09/24/16 04:29 Hepatitis C Antibody Non-reactive (NonReactive) 09/24/16 04:29 Blood Type O POSITIVE 09/22/16 15:48 Antibody Screen Negative 09/22/16 15:48 Crossmatch See Detail 09/22/16 15:48 - Imaging and Cardiology CT Scan - head: report reviewed (no acute abnormalities) Imaging and Cardiology: Renal ultrasound - renal parenchymal disease
[2016-09-27 06:56] LABS: BUN/Creatinine Ratio 18.12; Calcium 7.9 mg/dL (8.4-10.2)
--- NOTE | 2016-09-27 09:09 | Progress Note ---
Assessment and Plan (1) Acute kidney failure with tubular necrosis Current Visit: Yes Status: Acute Plan to address problem: Prerenal azotemia versus acute tubular necrosis secondary to hypotension. Serologies negative. Renal function improving slowly. Monitor electrolytes and renal function closely. (2) DKA (diabetic ketoacidoses) Current Visit: Yes Status: Acute Qualifiers: Diabetes mellitus type: D Diabetes mellitus complication detail: D Diabetes mellitus [facility] insulin use: D Plan to address problem: Continue management by hospitalist (3) Hypotension Current Visit: Yes Status: Acute Qualifiers: Hypotension type: H Trimester: T Plan to address problem: Blood pressure has improved. (4) Anemia Current Visit: Yes Status: Acute Qualifiers: Anemia type: A Iron deficiency anemia type: I Vitamin B12 deficiency anemia type: V Folate deficiency anemia type: F Bone marrow failure anemia type: B Hemolytic anemia type: H Other causes of anemia: O Plan to address problem: Stable. Follow-up hemoglobin (5) Hyperkalemia Current Visit: Yes Status: Acute resolved today (6) Chronic kidney disease, stage III (moderate) Current Visit: Yes Status: Acute Plan to address problem: Presumed stage III chronic kidney disease. (7) Hypertensive chronic kidney disease with stage 1 through stage 4 chronic kidney disease, or unspecified chronic kidney disease Current Visit: Yes Status: Acute Plan to address problem: Blood pressure is improving. Continue to monitor blood pressure closely (8) Hypernatremia Current Visit: Yes Status: Acute Plan to address problem: Sodium improving. Continue free water replacement and follow-up sodium Subjective Date of service: 09/27/16 Principal diagnosis: Acute renal failure; DKA Interval history: No SOB, CP Had vomiting x 1 this morning Objective - Vital Signs Vital signs: Vital Signs - 12hr 09/26/16 09/26/16 09/27/16 22:00 22:57 00:39 Temperature 98.2 F Pulse Rate 98 H 89 Pulse Rate [ 95 H From Monitor] Respiratory 18 Rate Blood Pressure 125/78 Blood Pressure 127/78 [Left Arm] O2 Sat by Pulse 100 99 Oximetry 09/27/16 09/27/16 05:40 08:23 Temperature 98.6 F Pulse Rate Pulse Rate [ 70 From Monitor] Respiratory 18 Rate Blood Pressure Blood Pressure 117/73 [Left Arm] O2 Sat by Pulse 100 100 Oximetry - General Appearance General appearance: well-developed, well-nourished, appears stated age, frail EENT: PERRL, mucous membranes moist Neck: no JVD, no thyromegaly, no carotid bruit, supple Respiratory: Present: Clear to Ascultation Cardiology: regular, normal heart rate, S1S2, no murmurs Gastrointestinal: normoactive bowel sounds, no tenderness Integumentary: no rash, warm and dry Neurologic: no focal deficit, alert and oriented x3, reflexes 2+ and symmetric, gait normal, strength 5/5 Musculoskeletal: no deformities, no erythema, no cyanosis, no clubbing Psychiatric: mood/affect appropriate, cooperative - Lab 09/25/16 05:43 09/27/16 06:09 Most recent lab results Calcium 7.9 mg/dL (8.4-10.2) L 09/27/16 06:09 Phosphorus 3.2 mg/dL (2.5-4.5) D 09/25/16 05:43 Magnesium 2.4 mg/dL (1.7-2.3) H 09/25/16 05:43 Urine Creatinine 172.5 mg/dL (0.1-20.0) H 09/23/16 15:20 Urine Sodium 58 mEq/L 09/23/16 15:20 Urine Total Protein 197 mg/dL (5-11.8) H 09/23/16 15:20
[2016-09-27] MEDS: NACL 0.45% 1000 ML 1,000 ML IV SCH (09:11)
[2016-09-27] MEDS: ZOFRAN IV PRN (09:11)
[2016-09-27] MEDS: TUMS PO SCH ×2 (10:00→22:15)
[2016-09-27] MEDS: PEPCID PO SCH (10:05)
[2016-09-27] MEDS: LOPRESSOR PO SCH ×2 (10:06→22:15)
[2016-09-27] MEDS: LOVENOX SUB-Q SCH (10:06)
--- NOTE | 2016-09-27 15:12 | Progress Note ---
Assessment and Plan - Patient Problems (1) Anemia Current Visit: Yes Status: Acute Qualifiers: Anemia type: A Iron deficiency anemia type: I Vitamin B12 deficiency anemia type: V Folate deficiency anemia type: F Bone marrow failure anemia type: B Hemolytic anemia type: H Other causes of anemia: O (2) DKA (diabetic ketoacidoses) Current Visit: Yes Status: Acute Qualifiers: Diabetes mellitus type: D Diabetes mellitus complication detail: D Diabetes mellitus nursing home insulin use: D (3) Acute renal failure Current Visit: No Status: Acute Qualifiers: Acute renal failure type: A (4) Discharge planning issues Current Visit: No Status: Acute Subjective Date of service: 09/27/16 Principal diagnosis: Acute renal failure; DKA Interval history: Seen and examined at bedside; 24 hour events reviewed; nursing and respiratory care staff consulted; no adverse overnight events reported to me; Objective Vital Signs - 12hr 09/27/16 09/27/16 09/27/16 05:40 08:23 08:55 Temperature 98.6 F 98.8 F Pulse Rate [ 70 From Monitor] Pulse Rate [ 86 Left Radial] Respiratory 18 18 Rate Blood Pressure 117/73 124/81 [Left Arm] O2 Sat by Pulse 100 100 100 Oximetry Constitutional: no acute distress Eyes: non-icteric ENT: oropharynx moist Neck: supple, no lymphadenopathy Effort: normal Ascultation: Bilateral: clear Cardiovascular: regular rate and rhythm Gastrointestinal: normoactive bowel sounds, soft, non-tender, non-distended Integumentary: normal Extremities: no cyanosis, no edema, pulses normal, no ischemia or petechiae Neurologic: normal mental status, non-focal exam, pupils equal and round, motor strength normal and Psychiatric: mood appropriate, affect normal CBC and BMP: 09/25/16 05:43 09/27/16 06:09 ABG, PT/INR, D-dimer: PT/INR, D-dimer PT 19.3 Sec. (12.2-14.9) H 09/22/16 15:05 INR 1.63 (0.87-1.13) H 09/22/16 15:05 Abnormal lab findings: Abnormal Labs 09/22/16 09/22/16 09/22/16 17:01 18:52 20:14 Hct MCH RDW Seg Neutrophils % Sodium Potassium 6.1 H* Chloride Carbon Dioxide 3 L* BUN 107 H Creatinine 4.8 H Glucose 1429 H* POC Glucose > 500 H > 500 H Calcium 6.9 L D Phosphorus Magnesium Alkaline Phosphatase Total Creatine Kinase CK-MB (CK-2) Troponin T C-Reactive Protein Total Protein Albumin Triglycerides Urine Creatinine Urine Total Protein 09/22/16 09/22/16 09/22/16 21:06 22:15 23:10 Hct MCH RDW Seg Neutrophils % Sodium Potassium Chloride Carbon Dioxide BUN Creatinine Glucose POC Glucose > 500 H > 500 H > 500 H Calcium Phosphorus Magnesium Alkaline Phosphatase Total Creatine Kinase CK-MB (CK-2) Troponin T C-Reactive Protein Total Protein Albumin Triglycerides Urine Creatinine Urine Total Protein 09/22/16 09/22/16 09/22/16 23:26 23:26 23:52 Hct MCH RDW Seg Neutrophils % Sodium 158 H D Potassium 3.2 L D Chloride 124.2 H Carbon Dioxide 10 L D BUN 87 H Creatinine 3.6 H Glucose 511 H* POC Glucose 472 H Calcium 6.2 L Phosphorus Magnesium 2.9 H Alkaline Phosphatase Total Creatine Kinase CK-MB (CK-2) Troponin T C-Reactive Protein Total Protein Albumin Triglycerides Urine Creatinine Urine Total Protein 09/23/16 09/23/16 09/23/16 01:03 01:29 01:56 Hct 43.7 H D MCH RDW Seg Neutrophils % Sodium Potassium Chloride Carbon Dioxide BUN Creatinine Glucose POC Glucose 297 H 226 H Calcium Phosphorus Magnesium Alkaline Phosphatase Total Creatine Kinase CK-MB (CK-2) Troponin T C-Reactive Protein Total Protein Albumin Triglycerides Urine Creatinine Urine Total Protein 09/23/16 09/23/16 09/23/16 03:04 04:00 04:54 Hct MCH RDW Seg Neutrophils % Sodium 166 H* D Potassium Chloride 125.4 H Carbon Dioxide 17 L D BUN 95 H Creatinine 4.6 H Glucose 128 H POC Glucose 115 H 117 H Calcium Phosphorus Magnesium Alkaline Phosphatase Total Creatine Kinase CK-MB (CK-2) Troponin T C-Reactive Protein Total Protein Albumin Triglycerides Urine Creatinine Urine Total Protein 09/23/16 09/23/16 09/23/16 05:48 05:48 06:55 Hct MCH RDW Seg Neutrophils % Sodium 165 H* Potassium Chloride 127.1 H Carbon Dioxide 19 L BUN 96 H Creatinine 4.2 H Glucose POC Glucose 115 H Calcium Phosphorus 1.7 L D Magnesium 3.5 H Alkaline Phosphatase Total Creatine Kinase CK-MB (CK-2) Troponin T C-Reactive Protein Total Protein Albumin Triglycerides Urine Creatinine Urine Total Protein 09/23/16 09/23/16 09/23/16 08:19 08:44 10:02 Hct MCH RDW Seg Neutrophils % Sodium 166 H* Potassium Chloride 128.7 H Carbon Dioxide 18 L BUN 97 H Creatinine 4.4 H Glucose POC Glucose 124 H 42 L Calcium Phosphorus Magnesium Alkaline Phosphatase Total Creatine Kinase CK-MB (CK-2) Troponin T C-Reactive Protein Total Protein Albumin Triglycerides Urine Creatinine Urine Total Protein 09/23/16 09/23/16 09/23/16 12:02 13:19 14:02 Hct MCH RDW Seg Neutrophils % Sodium Potassium Chloride Carbon Dioxide BUN Creatinine Glucose POC Glucose 289 H 158 H Calcium Phosphorus Magnesium Alkaline Phosphatase Total Creatine Kinase 162 H CK-MB (CK-2) 4.3 H Troponin T 0.192 H* C-Reactive Protein Total Protein Albumin Triglycerides 171 H Urine Creatinine Urine Total Protein 09/23/16 09/23/16 09/23/16 15:20 15:47 15:47 Hct MCH RDW Seg Neutrophils % Sodium 164 H* Potassium Chloride 127.6 H Carbon Dioxide 18 L BUN 95 H Creatinine 4.2 H Glucose POC Glucose Calcium Phosphorus Magnesium Alkaline Phosphatase Total Creatine Kinase CK-MB (CK-2) Troponin T C-Reactive Protein 34.40 H Total Protein Albumin Triglycerides Urine Creatinine 172.5 H Urine Total Protein 197 H 09/23/16 09/23/16 09/23/16 16:15 18:22 20:00 Hct MCH RDW Seg Neutrophils % Sodium 159 H Potassium Chloride 121.9 H Carbon Dioxide 16 L BUN 94 H Creatinine 4.3 H Glucose 182 H POC Glucose 236 H 69 L Calcium 7.9 L Phosphorus Magnesium Alkaline Phosphatase Total Creatine Kinase CK-MB (CK-2) Troponin T C-Reactive Protein Total Protein Albumin Triglycerides Urine Creatinine Urine Total Protein 09/23/16 09/23/16 09/23/16 20:02 21:09 22:03 Hct MCH RDW Seg Neutrophils % Sodium Potassium Chloride Carbon Dioxide BUN Creatinine Glucose POC Glucose 167 H 263 H 229 H Calcium Phosphorus Magnesium Alkaline Phosphatase Total Creatine Kinase CK-MB (CK-2) Troponin T C-Reactive Protein Total Protein Albumin Triglycerides Urine Creatinine Urine Total Protein 09/24/16 09/24/16 09/24/16 00:47 01:09 02:02 Hct MCH RDW Seg Neutrophils % Sodium Potassium Chloride Carbon Dioxide BUN Creatinine Glucose POC Glucose 149 H 128 H Calcium Phosphorus Magnesium Alkaline Phosphatase Total Creatine Kinase CK-MB (CK-2) Troponin T 0.131 H* D C-Reactive Protein Total Protein Albumin Triglycerides Urine Creatinine Urine Total Protein 09/24/16 09/24/16 09/24/16 03:06 04:07 04:29 Hct [facility] RDW Seg Neutrophils % Sodium Potassium Chloride Carbon Dioxide BUN Creatinine Glucose POC Glucose 144 H 131 H Calcium Phosphorus 1.6 L Magnesium Alkaline Phosphatase Total Creatine Kinase CK-MB (CK-2) Troponin T C-Reactive Protein Total Protein Albumin Triglycerides Urine Creatinine Urine Total Protein 09/24/16 09/24/16 09/24/16 04:29 06:03 07:42 Hct [facility] RDW Seg Neutrophils % Sodium Potassium Chloride Carbon Dioxide BUN Creatinine Glucose POC Glucose 200 H 160 H Calcium Phosphorus Magnesium Alkaline Phosphatase Total Creatine Kinase CK-MB (CK-2) Troponin T 0.111 H* C-Reactive Protein Total Protein Albumin Triglycerides Urine Creatinine Urine Total Protein 09/24/16 09/24/16 09/24/16 08:19 09:05 10:00 Hct [facility] RDW Seg Neutrophils % Sodium 154 H Potassium Chloride 120.2 H Carbon Dioxide 16 L BUN 88 H Creatinine 4.3 H Glucose 118 H POC Glucose 113 H 148 H Calcium 8.0 L Phosphorus Magnesium Alkaline Phosphatase 157 H Total Creatine Kinase CK-MB (CK-2) Troponin T C-Reactive Protein Total Protein 6.0 L Albumin 3.1 L Triglycerides Urine Creatinine Urine Total Protein 09/24/16 09/24/16 09/24/16 11:03 12:14 14:31 Hct [facility] RDW Seg Neutrophils % Sodium Potassium Chloride Carbon Dioxide BUN Creatinine Glucose POC Glucose 210 H 273 H Calcium Phosphorus Magnesium Alkaline Phosphatase Total Creatine Kinase CK-MB (CK-2) Troponin T 0.057 H D C-Reactive Protein Total Protein Albumin Triglycerides Urine Creatinine Urine Total Protein 09/24/16 09/24/16 09/24/16 16:51 20:55 22:00 Hct MCH RDW Seg Neutrophils % Sodium Potassium Chloride Carbon Dioxide BUN Creatinine Glucose POC Glucose 232 H 213 H Calcium Phosphorus Magnesium Alkaline Phosphatase Total Creatine Kinase CK-MB (CK-2) Troponin T 0.046 H C-Reactive Protein Total Protein Albumin Triglycerides Urine Creatinine Urine Total Protein 09/25/16 09/25/16 09/25/16 05:43 05:43 08:17 Hct MCH 27 L RDW 17.6 H Seg Neutrophils % 76.7 H Sodium 151 H Potassium Chloride 115.3 H Carbon Dioxide 19 L BUN 73 H Creatinine 4.1 H Glucose 303 H POC Glucose 421 H Calcium 8.0 L Phosphorus Magnesium 2.4 H Alkaline Phosphatase Total Creatine Kinase CK-MB (CK-2) Troponin T C-Reactive Protein Total Protein Albumin Triglycerides Urine Creatinine Urine Total Protein 09/25/16 09/25/16 09/26/16 11:25 16:47 02:48 Hct [facility] RDW Seg Neutrophils % Sodium 148 H Potassium 5.2 H Chloride 112.2 H Carbon Dioxide 20 L BUN 69 H Creatinine 3.9 H Glucose 367 H POC Glucose 436 H 209 H Calcium 8.0 L Phosphorus Magnesium Alkaline Phosphatase Total Creatine Kinase CK-MB (CK-2) Troponin T C-Reactive Protein Total Protein Albumin Triglycerides Urine Creatinine Urine Total Protein 09/26/16 09/26/16 09/26/16 08:21 08:34 11:05 Hct [facility] RDW Seg Neutrophils % Sodium Potassium Chloride Carbon Dioxide BUN Creatinine Glucose 580 H* POC Glucose > 500 H > 500 H Calcium Phosphorus Magnesium Alkaline Phosphatase Total Creatine Kinase CK-MB (CK-2) Troponin T C-Reactive Protein Total Protein Albumin Triglycerides Urine Creatinine Urine Total Protein 09/26/16 09/26/16 09/26/16 17:02 17:05 20:31 Hct [facility] RDW Seg Neutrophils % Sodium Potassium Chloride Carbon Dioxide BUN Creatinine Glucose POC Glucose < 40 L 49 L 310 H Calcium Phosphorus Magnesium Alkaline Phosphatase Total Creatine Kinase CK-MB (CK-2) Troponin T C-Reactive Protein Total Protein Albumin Triglycerides Urine Creatinine Urine Total Protein 09/27/16 09/27/16 06:09 11:53 Hct [facility] RDW Seg Neutrophils % Sodium Potassium Chloride 108.0 H Carbon Dioxide 20 L BUN 58 H Creatinine 3.2 H Glucose 181 H POC Glucose 489 H Calcium 7.9 L Phosphorus Magnesium Alkaline Phosphatase Total Creatine Kinase CK-MB (CK-2) Troponin T C-Reactive Protein Total Protein Albumin Triglycerides Urine Creatinine Urine Total Protein
--- NOTE | 2016-09-27 19:23 | Progress Note ---
Assessment and Plan Assessment and plan: 46 years old -[place] female with insulin-dependent diabetes brought to the hospital for altered mental status and found to be in DKA, dehydrated, hypotensive, with severe hypernatremia and acute renal failure 1. DKA/DM DKA resolved with insulin drip Switched to subcutaneous insulin, but BS still significantly elevated, so yesterday NPH discontinued and started on insulin 70/30 at increased dose; one episode of hypoglycemia overnight, otherwise clean 300 range Continue Accu-Cheks and SSI to assess insulin requirements 2. Acute renal failure Vasomotor nephropathy versus ATN secondary to hypotension superimposed on chronic kidney disease Slowly improving with IV fluids 3. Metabolic acidosis Severe on admission due to DKA and renal failure Now improved, remaining likely due to renal impairment 4. Hypernatremia Resolved with hypotonic IV fluids, within normal limits today Continue to monitor 5. Hypocalcemia, hypophosphatemia Replace and recheck as needed 6. Hyperkalemia Status post Kayexalate; continue normal limits today 5. Dehydration Resolved with IV fluids 6. Acute metabolic encephalopathy Resolved treating underlying conditions, mental status back to baseline 7. Anemia Likely anemia of chronic renal disease and chronic inflammation Mild, hemoglobin in 11 range Monitor 8. Malnutrition Due to poor by mouth intake; may have gastroparesis Diet supplementation History Interval history: Still nauseated, no vomiting, trying to eat; complaining of decreased appetite Hospitalist Physical - Constitutional Vitals: Temp Pulse Resp BP Pulse Ox 98.2 F 78 18 150/84 98 09/27/16 17:00 09/27/16 17:00 09/27/16 17:00 09/27/16 17:00 09/27/16 17:00 General appearance: Present: no acute distress, cachectic - EENT Eyes: Present: PERRL, EOM intact. Absent: scleral icterus, conjunctival injection ENT: edentulous - Neck Neck: Present: supple. Absent: enlarged thyroid, masses or JVD - Respiratory Respiratory effort: normal Respiratory: bilateral: CTA, negative: rhonchi, wheezing - Cardiovascular Rhythm: regular Heart Sounds: Present: S1 & S2. Absent: systolic murmur - Extremities Extremities: no ischemia - Abdominal General gastrointestinal: soft, non-tender, non-distended, normal bowel sounds - Integumentary Integumentary: Present: warm, dry. Absent: jaundice, rash - Psychiatric Psychiatric: cooperative - Neurologic Neurologic: CNII-XII intact, no focal deficits Results - Labs CBC & Chem 7: 09/25/16 05:43 09/27/16 06:09 Labs: Laboratory Last Values WBC 10.0 K/mm3 (4.5-11.0) 09/25/16 05:43 RBC 4.30 M/mm3 (3.65-5.03) 09/25/16 05:43 Hgb 11.7 gm/dl (10.1-14.3) 09/25/16 05:43 Hct 35.9 % (30.3-42.9) 09/25/16 05:43 MCV 84 fl (79-97) D 09/25/16 05:43 MCH 27 pg (28-32) L 09/25/16 05:43 MCHC 32 % (30-34) 09/25/16 05:43 RDW 17.6 % (13.2-15.2) H 09/25/16 05:43 Plt Count 179 K/mm3 (140-440) 09/25/16 05:43 Lymph % (Auto) 15.4 % (13.4-35.0) 09/25/16 05:43 [place] % (Auto) 6.0 % (0.0-7.3) 09/25/16 05:43 Eos % (Auto) 1.6 % (0.0-4.3) 09/25/16 05:43 Baso % (Auto) 0.3 % (0.0-1.8) 09/25/16 05:43 Lymph # 1.5 K/mm3 (1.2-5.4) 09/25/16 05:43 [place] # 0.6 K/mm3 (0.0-0.8) 09/25/16 05:43 Eos # 0.2 K/mm3 (0.0-0.4) 09/25/16 05:43 Baso # 0.0 K/mm3 (0.0-0.1) 09/25/16 05:43 Add Manual Diff Complete 09/22/16 14:34 Total Counted 100 09/22/16 14:34 Seg Neutrophils % 76.7 % (40.0-70.0) H 09/25/16 05:43 Seg Neuts % (Manual) 90.0 % (40.0-70.0) H 09/22/16 14:34 Band Neutrophils % 10.0 % 09/22/16 14:34 Lymphocytes % (Manual) 0 % (13.4-35.0) L 09/22/16 14:34 Reactive Lymphs % (Man) 0 % 09/22/16 14:34 Monocytes % (Manual) 0 % (0.0-7.3) 09/22/16 14:34 Eosinophils % (Manual) 0 % (0.0-4.3) 09/22/16 14:34 Basophils % (Manual) 0 % (0.0-1.8) 09/22/16 14:34 Metamyelocytes % 0 % 09/22/16 14:34 Myelocytes % 0 % 09/22/16 14:34 Promyelocytes % 0 % 09/22/16 14:34 Blast Cells % 0 % 09/22/16 14:34 Nucleated RBC % 1.0 % (0.0-0.9) H 09/22/16 14:34 Seg Neutrophils # 7.7 K/mm3 (1.8-7.7) 09/25/16 05:43 Seg Neutrophils # Man 7.0 K/mm3 (1.8-7.7) 09/22/16 14:34 Band Neutrophils # 0.8 K/mm3 09/22/16 14:34 Lymphocytes # (Manual) 0.0 K/mm3 (1.2-5.4) L 09/22/16 14:34 Abs React Lymphs (Man) 0.0 K/mm3 09/22/16 14:34 Monocytes # (Manual) 0.0 K/mm3 (0.0-0.8) 09/22/16 14:34 Eosinophils # (Manual) 0.0 K/mm3 (0.0-0.4) 09/22/16 14:34 Basophils # (Manual) 0.0 K/mm3 (0.0-0.1) 09/22/16 14:34 Metamyelocytes # 0.0 K/mm3 09/22/16 14:34 Myelocytes # 0.0 K/mm3 09/22/16 14:34 Promyelocytes # 0.0 K/mm3 09/22/16 14:34 Blast Cells # 0.0 K/mm3 09/22/16 14:34 WBC Morphology Not Reportable 09/22/16 14:34 Hypersegmented Neuts Not Reportable 09/22/16 14:34 Hyposegmented Neuts Not Reportable 09/22/16 14:34 Hypogranular Neuts Not Reportable 09/22/16 14:34 Smudge Cells Not Reportable 09/22/16 14:34 Toxic Granulation Not Reportable 09/22/16 14:34 Toxic Vacuolation Not Reportable 09/22/16 14:34 Dohle Bodies Not Reportable 09/22/16 14:34 Pelger-Huet Anomaly Not Reportable 09/22/16 14:34 Mary Rods Not Reportable 09/22/16 14:34 Platelet Estimate Consistent w auto 09/22/16 14:34 Clumped Platelets Not Reportable 09/22/16 14:34 Plt Clumps, EDTA Not Reportable 09/22/16 14:34 Large Platelets 1+ 09/22/16 14:34 Giant Platelets Not Reportable 09/22/16 14:34 Platelet Satelliting Not Reportable 09/22/16 14:34 Plt Morphology Comment Not Reportable 09/22/16 14:34 RBC Morphology Not Reportable 09/22/16 14:34 Dimorphic RBCs Not Reportable 09/22/16 14:34 Polychromasia Not Reportable 09/22/16 14:34 Hypochromasia Not Reportable 09/22/16 14:34 Poikilocytosis 1+ 09/22/16 14:34 Anisocytosis 1+ 09/22/16 14:34 Microcytosis Not Reportable 09/22/16 14:34 Macrocytosis Not Reportable 09/22/16 14:34 Spherocytes Not Reportable 09/22/16 14:34 Pappenheimer Bodies Not Reportable 09/22/16 14:34 Sickle Cells Not Reportable 09/22/16 14:34 Target Cells Not Reportable 09/22/16 14:34 Tear Drop Cells Not Reportable 09/22/16 14:34 Ovalocytes Not Reportable 09/22/16 14:34 Helmet Cells Not Reportable 09/22/16 14:34 [place] Bodies Not Reportable 09/22/16 14:34 [place] Rings Not Reportable 09/22/16 14:34 [place] Cells Not Reportable 09/22/16 14:34 Bite Cells Not Reportable 09/22/16 14:34 Crenated Cell Not Reportable 09/22/16 14:34 Elliptocytes Not Reportable 09/22/16 14:34 Acanthocytes (Spur) Not Reportable 09/22/16 14:34 Rouleaux Not Reportable 09/22/16 14:34 Hemoglobin C Crystals Not Reportable 09/22/16 14:34 Schistocytes Not Reportable 09/22/16 14:34 Malaria parasites Not Reportable 09/22/16 14:34 Michael Bodies Not Reportable 09/22/16 14:34 Hem Pathologist Commnt No 09/22/16 14:34 PT 19.3 Sec. (12.2-14.9) H 09/22/16 15:05 INR 1.63 (0.87-1.13) H 09/22/16 15:05 APTT 28.9 Sec. (24.2-36.6) 09/22/16 15:05 VBG pH 7.038 (7.320-7.420) L* 09/22/16 14:34 Sodium 145 mmol/L (137-145) 09/27/16 06:09 Potassium 4.0 mmol/L (3.6-5.0) D 09/27/16 06:09 Chloride 108.0 mmol/L (98-107) H 09/27/16 06:09 Carbon Dioxide 20 mmol/L (22-30) L 09/27/16 06:09 Anion Gap 21 mmol/L 09/27/16 06:09 BUN 58 mg/dL (7-17) H 09/27/16 06:09 Creatinine 3.2 mg/dL (0.7-1.2) H 09/27/16 06:09 Estimated GFR 19 ml/min 09/27/16 06:09 BUN/Creatinine Ratio 18.12 % 09/27/16 06:09 Glucose 181 mg/dL (65-100) H 09/27/16 06:09 POC Glucose 428 (70-105) H 09/27/16 16:49 Hemoglobin A1c 14.4 % (4-6) H 09/22/16 14:34 Lactic Acid 1.2 mmol/L (0.7-2.0) 09/22/16 14:34 Calcium 7.9 mg/dL (8.4-10.2) L 09/27/16 06:09 Phosphorus 3.2 mg/dL (2.5-4.5) D 09/25/16 05:43 Magnesium 2.4 mg/dL (1.7-2.3) H 09/25/16 05:43 Total Bilirubin < 0.2 mg/dL (0.1-1.2) 09/24/16 08:19 AST 38 units/L (5-40) 09/24/16 08:19 ALT 15 units/L (7-56) 09/24/16 08:19 Alkaline Phosphatase 157 units/L (35-129) H 09/24/16 08:19 Total Creatine Kinase 162 units/L (30-135) H 09/23/16 13:19 CK-MB (CK-2) 4.3 ng/mL (0.0-4.0) H 09/23/16 13:19 CK-MB (CK-2) Rel Index 2.6 (0-4) 09/23/16 13:19 Troponin T 0.046 ng/mL (0.00-0.029) H 09/24/16 20:55 C-Reactive Protein 34.40 mg/dL (0.00-1.30) H 09/23/16 15:47 Total Protein 6.0 g/dL (6.3-8.2) L 09/24/16 08:19 Albumin 3.1 g/dL (3.9-5) L 09/24/16 08:19 Albumin/Globulin Ratio 1.1 % 09/24/16 08:19 Triglycerides 171 mg/dL (2-149) H 09/23/16 13:19 Cholesterol 190 mg/dL (50-199) 09/23/16 13:19 LDL Cholesterol Direct 109 mg/dL (50-130) 09/23/16 13:19 HDL Cholesterol 47 mg/dL (40-59) 09/23/16 13:19 Cholesterol/HDL Ratio 4.04 % 09/23/16 13:19 TSH 0.404 mlU/mL (0.270-4.200) 09/22/16 15:05 Urine Color Straw (Yellow) 09/22/16 15:23 Urine Turbidity Clear (Clear) 09/22/16 15:23 Urine pH 8.0 (5.0-7.0) H 09/22/16 15:23 Ur Specific [place] 1.026 (1.003-1.030) 09/22/16 15:23 Urine Protein 100 mg/dl mg/dL (Negative) 09/22/16 15:23 Urine Glucose (UA) 150 mg/dL (Negative) 09/22/16 15:23 Urine Ketones 20 mg/dL (Negative) 09/22/16 15:23 Urine Blood Neg (Negative) 09/22/16 15:23 Urine Nitrite Neg (Negative) 09/22/16 15:23 Urine Bilirubin Neg (Negative) 09/22/16 15:23 Urine Urobilinogen < 2.0 mg/dL (<2.0) 09/22/16 15:23 Ur Leukocyte Esterase Neg (Negative) 09/22/16 15:23 Urine WBC (Auto) < 1.0 /HPF (0.0-6.0) 09/22/16 15:23 Urine RBC (Auto) 3.0 /HPF (0.0-6.0) 09/22/16 15:23 U Epithel Cells (Auto) < 1.0 /HPF (0-13.0) 09/22/16 15:23 Urine Creatinine 172.5 mg/dL (0.1-20.0) H 09/23/16 15:20 Urine Sodium 58 mEq/L 09/23/16 15:20 Urine Total Protein 197 mg/dL (5-11.8) H 09/23/16 15:20 Urine Opiates Screen Presumptive negative 09/22/16 15:23 Urine Methadone Screen Presumptive negative 09/22/16 15:23 Ur Barbiturates Screen Presumptive negative 09/22/16 15:23 Ur Phencyclidine Scrn Presumptive negative 09/22/16 15:23 Ur Amphetamines Screen Presumptive negative 09/22/16 15:23 U Benzodiazepines Scrn Presumptive negative 09/22/16 15:23 Urine Cocaine Screen Presumptive negative 09/22/16 15:23 U Marijuana (THC) Screen Presumptive positive 09/22/16 15:23 Drugs of Abuse Note Disclamer 09/22/16 15:23 Hep Bs Antigen Non-reactive (Negative) 09/24/16 04:29 Hepatitis C Antibody Non-reactive (NonReactive) 09/24/16 04:29 Blood Type O POSITIVE 09/22/16 15:48 Antibody Screen Negative 09/22/16 15:48 Crossmatch See Detail 09/22/16 15:48
[2016-09-28 07:16] LABS: Calcium 7.6 mg/dL (8.4-10.2); Chloride 104.7 mmol/L (98-107); Potassium 4.2 mmol/L (3.6-5.0)
[2016-09-28] MEDS: LOPRESSOR PO SCH (09:00)
[2016-09-28] MEDS: LOVENOX SUB-Q SCH (09:00)
[2016-09-28] MEDS: TUMS PO SCH (09:00)
[2016-09-28] MEDS: LEVAQUIN PO SCH (09:00)
[2016-09-28] MEDS: PEPCID PO SCH (09:00)
[2016-09-28 09:11] VITALS: BP 138/78
--- NOTE | 2016-09-28 09:50 | Discharge Summary ---
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 Place consult to:: CCU Notified:: Y Was contact made?: Yes If yes, spoke with:: dr Sauer" Time called:: 18:00 09/22/16 20:29 Consult to Dietitian/Nutrition [CONS] Routine Physician Instructions: Reason For Exam: Reason for Consult: Diet education 09/22/16 20:31 Consult to Case Management [CONS] Routine Services Needed at Discharge: Home Health Services Notified:: case briefer Phone number called:: [phone] Was contact made?: Yes If yes, spoke with:: Time called:: 08:33 09/22/16 20:48 Consult to Physician [CONS] Routine Consulting Provider: ANTWON BUSTILLO Reason For Exam: ARF/CKD Place consult to:: answer service notify @2054 spoke with nabor baronpawelhernandez Notified:: yes Phone number called:: [phone] Was contact made?: Yes If yes, spoke with:: Time called:: 20:59 Primary care physician: [facility] Hospitalization Reason for admission: AMS Condition: Stable Pertinent studies: CXR Renal US CT head Hospital course: Patient is a 46 years old -[place] female with insulin-dependent diabetes who was brought to the hospital for altered mental status and found to be in DKA, dehydrated, hypotensive, with severe hypernatremia and acute renal failure. Admitted to ICU, started on insulin drip, aggressive IV hydration, bicarbonate. She slowly improved and was transitioned to subcutaneous insulin and by mouth meds; regimend have been adjusted; IV fluids have been continued until hypernatremia resolved; her renal function improved, but not back in normal limits as she most likely has chronic kidney disease secondary to long- standing uncontrolled diabetes. Followed by nephrology and advised to keep her appointments. Also found to be anemic and malnourished and started on supplementation. She will be discharged with home health, home PT and close follow-up with her PCP. Discharge diagnosis: 1. DKA/uncontrolled DM 2. Acute renal failure superimposed on chronic kidney disease 3. Metabolic acidosis 4. Hypernatremia 5. Hypocalcemia, hypophosphatemia 6. Hyperkalemia 5. Dehydration 6. Acute metabolic encephalopathy 7. Anemia 8. Malnutrition Disposition: DC/TX HOME UNDER HOME HEALTH Time spent for discharge: 35 min Core Measure Documentation - Palliative Care Palliative Care/ Comfort Measures: Not Applicable - Core Measures Any of the following diagnoses?: none Exam - Physical Exam Narrative exam: Patient seen and examined: - Constitutional Vitals: Temp Pulse Resp BP Pulse Ox 98.6 F 85 18 138/78 99 09/28/16 08:00 09/28/16 08:00 09/28/16 08:00 09/28/16 08:00 09/28/16 08:00 General appearance: Present: no acute distress, other (thin, frail, older looking than stated age) - EENT Eyes: Present: PERRL, EOM intact. Absent: scleral icterus, conjunctival injection ENT: clear oral mucosa, edentulous - Neck Neck: Present: supple, normal ROM. Absent: masses or JVD - Respiratory Respiratory effort: normal Respiratory: bilateral: CTA, negative: rales, rhonchi, wheezing - Cardiovascular Rhythm: regular Heart Sounds: Present: S1 & S2. Absent: systolic murmur - Extremities Extremities: no ischemia - Abdominal General gastrointestinal: Present: soft, non-tender, non-distended, normal bowel sounds - Integumentary Integumentary: Present: warm, dry. Absent: jaundice, rash - Musculoskeletal Musculoskeletal: generalized weakness - Psychiatric Psychiatric: cooperative - Neurologic Neurologic: CNII-XII intact, no focal deficits Plan Activity: advance as tolerated Diet: low cholesterol, low salt, diabetic Follow up with: PRIMARY CARE, [Primary Care Provider] - 3-5 Days Prescriptions: Antacid [Alum-Mag Hydrox-Simeth [id number]/5Ml] 30 ml PO Q4H PRN #30 oral.liqd PRN Reason: Indigestion Famotidine [Pepcid] 20 mg PO DAILY #30 tablet Insulin NPH/Regular [NovoLIN 70/30] 12 unit SUB-Q BIDDIAB 30 Days Megestrol [Megace] 20 mg PO TID #90 tablet Metoprolol [Lopressor TAB] 25 mg PO BID #60 tablet
--- NOTE | 2016-09-28 11:01 | Progress Note ---
Assessment and Plan (1) Acute kidney failure with tubular necrosis Current Visit: Yes Status: Acute Plan to address problem: Prerenal azotemia versus acute tubular necrosis secondary to hypotension. CR improving now at 2.5 from a peak CR of 4.8. Continue Same If she gets d/adrienne will need to follow up in our office in 1-2 weeks. (2) DKA (diabetic ketoacidoses) Current Visit: Yes Status: Acute Qualifiers: Diabetes mellitus type: D Diabetes mellitus complication detail: D Diabetes mellitus correction insulin use: D Plan to address problem: Resolved (3) Hypotension Current Visit: Yes Status: Acute Qualifiers: Hypotension type: H Trimester: T Plan to address problem: Blood pressure has improved. (4) Anemia Current Visit: Yes Status: Acute Qualifiers: Anemia type: A Iron deficiency anemia type: I Vitamin B12 deficiency anemia type: V Folate deficiency anemia type: F Bone marrow failure anemia type: B Hemolytic anemia type: H Other causes of anemia: O Plan to address problem: Stable. Follow-up hemoglobin (5) Hyperkalemia Current Visit: Yes Status: Acute resolved (6) Chronic kidney disease, stage III (moderate) Current Visit: Yes Status: Acute Plan to address problem: Presumed stage III chronic kidney disease. (7) Hypertensive chronic kidney disease with stage 1 through stage 4 chronic kidney disease, or unspecified chronic kidney disease Current Visit: Yes Status: Acute Plan to address problem: Blood pressure is improving. Continue to monitor blood pressure closely (8) Hypernatremia Current Visit: Yes Status: Acute Plan to address problem: Sodium improving. Continue free water replacement and follow-up sodium Subjective Date of service: 09/28/16 Principal diagnosis: Acute renal failure; DKA Interval history: Feels better, No SOB/CP. + nausea/ no vomiting Objective - Exam Narrative Exam: General appearance: well-developed, well-nourished, appears stated age, frail EENT: PERRL, mucous membranes moist Neck: no JVD, no thyromegaly, no carotid bruit, supple Respiratory: Present: Clear to Ascultation Cardiology: regular, normal heart rate, S1S2, no murmurs Gastrointestinal: normoactive bowel sounds, no tenderness Integumentary: no rash, warm and dry Neurologic: no focal deficit, alert and oriented x3, reflexes 2+ and symmetric, gait normal, strength 5/5 Musculoskeletal: no deformities, no erythema, no cyanosis, no clubbing Psychiatric: mood/affect appropriate, cooperative - Vital Signs Vital signs: Vital Signs - 12hr 09/28/16 09/28/16 09/28/16 00:00 04:30 08:00 Temperature 99.2 F 98.6 F 98.6 F Pulse Rate Pulse Rate [ 87 84 85 Left Radial] Respiratory 18 18 18 Rate Blood Pressure Blood Pressure 136/71 139/82 138/78 [Left Arm] O2 Sat by Pulse 100 100 99 Oximetry 09/28/16 09:00 Temperature Pulse Rate 88 Pulse Rate [ Left Radial] Respiratory Rate Blood Pressure 138/78 Blood Pressure [Left Arm] O2 Sat by Pulse Oximetry - Lab 09/25/16 05:43 09/28/16 05:42 Most recent lab results Calcium 7.6 mg/dL (8.4-10.2) L 09/28/16 05:42 Phosphorus 3.2 mg/dL (2.5-4.5) D 09/25/16 05:43 Magnesium 2.4 mg/dL (1.7-2.3) H 09/25/16 05:43 Urine Creatinine 172.5 mg/dL (0.1-20.0) H 09/23/16 15:20 Urine Sodium 58 mEq/L 09/23/16 15:20 Urine Total Protein 197 mg/dL (5-11.8) H 09/23/16 15:20
--- NOTE | 2016-09-28 14:12 | Progress Note ---
Assessment and Plan - Patient Problems (1) Acute hypernatremia Status: Acute (2) Acute renal failure Status: Acute Qualifiers: Acute renal failure type: A (3) Altered mental status Status: Acute Qualifiers: Altered mental status type: A Coma depth: C Coma timing: C (4) DKA (diabetic ketoacidoses) Status: Acute Qualifiers: Diabetes mellitus type: D Diabetes mellitus complication detail: D Diabetes mellitus mcfp insulin use: D Subjective Date of service: 09/28/16 Principal diagnosis: Acute renal failure; DKA Objective Vital Signs - 12hr 09/28/16 09/28/16 09/28/16 04:30 08:00 09:00 Temperature 98.6 F 98.6 F Pulse Rate 88 Pulse Rate [ 84 85 Left Radial] Respiratory 18 18 Rate Blood Pressure 138/78 Blood Pressure 139/82 138/78 [Left Arm] O2 Sat by Pulse 100 99 Oximetry 09/28/16 12:13 Temperature Pulse Rate Pulse Rate [ Left Radial] Respiratory Rate Blood Pressure Blood Pressure [Left Arm] O2 Sat by Pulse 100 Oximetry Constitutional: no acute distress Eyes: non-icteric ENT: oropharynx moist Neck: supple, no lymphadenopathy Effort: normal Cardiovascular: regular rate and rhythm Gastrointestinal: normoactive bowel sounds, soft, non-tender, non-distended Integumentary: normal Extremities: no cyanosis, no edema, pulses normal, no ischemia or petechiae Neurologic: normal mental status, non-focal exam, pupils equal and round, motor strength normal and Psychiatric: mood appropriate, affect normal CBC and BMP: 09/25/16 05:43 09/28/16 05:42 ABG, PT/INR, D-dimer: PT/INR, D-dimer PT 19.3 Sec. (12.2-14.9) H 09/22/16 15:05 INR 1.63 (0.87-1.13) H 09/22/16 15:05 Abnormal lab findings: Abnormal Labs 09/22/16 09/22/16 09/22/16 17:01 18:52 20:14 Hct MCH RDW Seg Neutrophils % Sodium Potassium 6.1 H* Chloride Carbon Dioxide 3 L* BUN 107 H Creatinine 4.8 H Glucose 1429 H* POC Glucose > 500 H > 500 H Calcium 6.9 L D Phosphorus Magnesium Alkaline Phosphatase Total Creatine Kinase CK-MB (CK-2) Troponin T C-Reactive Protein Total Protein Albumin Triglycerides Urine Creatinine Urine Total Protein 09/22/16 09/22/16 09/22/16 21:06 22:15 23:10 Hct MCH RDW Seg Neutrophils % Sodium Potassium Chloride Carbon Dioxide BUN Creatinine Glucose POC Glucose > 500 H > 500 H > 500 H Calcium Phosphorus Magnesium Alkaline Phosphatase Total Creatine Kinase CK-MB (CK-2) Troponin T C-Reactive Protein Total Protein Albumin Triglycerides Urine Creatinine Urine Total Protein 09/22/16 09/22/16 09/22/16 23:26 23:26 23:52 Hct MCH RDW Seg Neutrophils % Sodium 158 H D Potassium 3.2 L D Chloride 124.2 H Carbon Dioxide 10 L D BUN 87 H Creatinine 3.6 H Glucose 511 H* POC Glucose 472 H Calcium 6.2 L Phosphorus Magnesium 2.9 H Alkaline Phosphatase Total Creatine Kinase CK-MB (CK-2) Troponin T C-Reactive Protein Total Protein Albumin Triglycerides Urine Creatinine Urine Total Protein 09/23/16 09/23/16 09/23/16 01:03 01:29 01:56 Hct 43.7 H D MCH RDW Seg Neutrophils % Sodium Potassium Chloride Carbon Dioxide BUN Creatinine Glucose POC Glucose 297 H 226 H Calcium Phosphorus Magnesium Alkaline Phosphatase Total Creatine Kinase CK-MB (CK-2) Troponin T C-Reactive Protein Total Protein Albumin Triglycerides Urine Creatinine Urine Total Protein 09/23/16 09/23/16 09/23/16 03:04 04:00 04:54 Hct MCH RDW Seg Neutrophils % Sodium 166 H* D Potassium Chloride 125.4 H Carbon Dioxide 17 L D BUN 95 H Creatinine 4.6 H Glucose 128 H POC Glucose 115 H 117 H Calcium Phosphorus Magnesium Alkaline Phosphatase Total Creatine Kinase CK-MB (CK-2) Troponin T C-Reactive Protein Total Protein Albumin Triglycerides Urine Creatinine Urine Total Protein 09/23/16 09/23/16 09/23/16 05:48 05:48 06:55 Hct MCH RDW Seg Neutrophils % Sodium 165 H* Potassium Chloride 127.1 H Carbon Dioxide 19 L BUN 96 H Creatinine 4.2 H Glucose POC Glucose 115 H Calcium Phosphorus 1.7 L D Magnesium 3.5 H Alkaline Phosphatase Total Creatine Kinase CK-MB (CK-2) Troponin T C-Reactive Protein Total Protein Albumin Triglycerides Urine Creatinine Urine Total Protein 09/23/16 09/23/16 09/23/16 08:19 08:44 10:02 Hct MCH RDW Seg Neutrophils % Sodium 166 H* Potassium Chloride 128.7 H Carbon Dioxide 18 L BUN 97 H Creatinine 4.4 H Glucose POC Glucose 124 H 42 L Calcium Phosphorus Magnesium Alkaline Phosphatase Total Creatine Kinase CK-MB (CK-2) Troponin T C-Reactive Protein Total Protein Albumin Triglycerides Urine Creatinine Urine Total Protein 09/23/16 09/23/16 09/23/16 12:02 13:19 14:02 Hct MCH RDW Seg Neutrophils % Sodium Potassium Chloride Carbon Dioxide BUN Creatinine Glucose POC Glucose 289 H 158 H Calcium Phosphorus Magnesium Alkaline Phosphatase Total Creatine Kinase 162 H CK-MB (CK-2) 4.3 H Troponin T 0.192 H* C-Reactive Protein Total Protein Albumin Triglycerides 171 H Urine Creatinine Urine Total Protein 09/23/16 09/23/16 09/23/16 15:20 15:47 15:47 Hct MCH RDW Seg Neutrophils % Sodium 164 H* Potassium Chloride 127.6 H Carbon Dioxide 18 L BUN 95 H Creatinine 4.2 H Glucose POC Glucose Calcium Phosphorus Magnesium Alkaline Phosphatase Total Creatine Kinase CK-MB (CK-2) Troponin T C-Reactive Protein 34.40 H Total Protein Albumin Triglycerides Urine Creatinine 172.5 H Urine Total Protein 197 H 09/23/16 09/23/16 09/23/16 16:15 18:22 20:00 Hct [facility] RDW Seg Neutrophils % Sodium 159 H Potassium Chloride 121.9 H Carbon Dioxide 16 L BUN 94 H Creatinine 4.3 H Glucose 182 H POC Glucose 236 H 69 L Calcium 7.9 L Phosphorus Magnesium Alkaline Phosphatase Total Creatine Kinase CK-MB (CK-2) Troponin T C-Reactive Protein Total Protein Albumin Triglycerides Urine Creatinine Urine Total Protein 09/23/16 09/23/16 09/23/16 20:02 21:09 22:03 Hct MCH RDW Seg Neutrophils % Sodium Potassium Chloride Carbon Dioxide BUN Creatinine Glucose POC Glucose 167 H 263 H 229 H Calcium Phosphorus Magnesium Alkaline Phosphatase Total Creatine Kinase CK-MB (CK-2) Troponin T C-Reactive Protein Total Protein Albumin Triglycerides Urine Creatinine Urine Total Protein 09/24/16 09/24/16 09/24/16 00:47 01:09 02:02 Hct MCH RDW Seg Neutrophils % Sodium Potassium Chloride Carbon Dioxide BUN Creatinine Glucose POC Glucose 149 H 128 H Calcium Phosphorus Magnesium Alkaline Phosphatase Total Creatine Kinase CK-MB (CK-2) Troponin T 0.131 H* D C-Reactive Protein Total Protein Albumin Triglycerides Urine Creatinine Urine Total Protein 09/24/16 09/24/16 09/24/16 03:06 04:07 04:29 Hct MCH RDW Seg Neutrophils % Sodium Potassium Chloride Carbon Dioxide BUN Creatinine Glucose POC Glucose 144 H 131 H Calcium Phosphorus 1.6 L Magnesium Alkaline Phosphatase Total Creatine Kinase CK-MB (CK-2) Troponin T C-Reactive Protein Total Protein Albumin Triglycerides Urine Creatinine Urine Total Protein 09/24/16 09/24/16 09/24/16 04:29 06:03 07:42 Hct [facility] RDW Seg Neutrophils % Sodium Potassium Chloride Carbon Dioxide BUN Creatinine Glucose POC Glucose 200 H 160 H Calcium Phosphorus Magnesium Alkaline Phosphatase Total Creatine Kinase CK-MB (CK-2) Troponin T 0.111 H* C-Reactive Protein Total Protein Albumin Triglycerides Urine Creatinine Urine Total Protein 09/24/16 09/24/16 09/24/16 08:19 09:05 10:00 Hct MCH RDW Seg Neutrophils % Sodium 154 H Potassium Chloride 120.2 H Carbon Dioxide 16 L BUN 88 H Creatinine 4.3 H Glucose 118 H POC Glucose 113 H 148 H Calcium 8.0 L Phosphorus Magnesium Alkaline Phosphatase 157 H Total Creatine Kinase CK-MB (CK-2) Troponin T C-Reactive Protein Total Protein 6.0 L Albumin 3.1 L Triglycerides Urine Creatinine Urine Total Protein 09/24/16 09/24/16 09/24/16 11:03 12:14 14:31 Hct MCH RDW Seg Neutrophils % Sodium Potassium Chloride Carbon Dioxide BUN Creatinine Glucose POC Glucose 210 H 273 H Calcium Phosphorus Magnesium Alkaline Phosphatase Total Creatine Kinase CK-MB (CK-2) Troponin T 0.057 H D C-Reactive Protein Total Protein Albumin Triglycerides Urine Creatinine Urine Total Protein 09/24/16 09/24/16 09/24/16 16:51 20:55 22:00 Hct MCH RDW Seg Neutrophils % Sodium Potassium Chloride Carbon Dioxide BUN Creatinine Glucose POC Glucose 232 H 213 H Calcium Phosphorus Magnesium Alkaline Phosphatase Total Creatine Kinase CK-MB (CK-2) Troponin T 0.046 H C-Reactive Protein Total Protein Albumin Triglycerides Urine Creatinine Urine Total Protein 09/25/16 09/25/16 09/25/16 05:43 05:43 08:17 Hct MCH 27 L RDW 17.6 H Seg Neutrophils % 76.7 H Sodium 151 H Potassium Chloride 115.3 H Carbon Dioxide 19 L BUN 73 H Creatinine 4.1 H Glucose 303 H POC Glucose 421 H Calcium 8.0 L Phosphorus Magnesium 2.4 H Alkaline Phosphatase Total Creatine Kinase CK-MB (CK-2) Troponin T C-Reactive Protein Total Protein Albumin Triglycerides Urine Creatinine Urine Total Protein 09/25/16 09/25/16 09/26/16 11:25 16:47 02:48 Hct [facility] RDW Seg Neutrophils % Sodium 148 H Potassium 5.2 H Chloride 112.2 H Carbon Dioxide 20 L BUN 69 H Creatinine 3.9 H Glucose 367 H POC Glucose 436 H 209 H Calcium 8.0 L Phosphorus Magnesium Alkaline Phosphatase Total Creatine Kinase CK-MB (CK-2) Troponin T C-Reactive Protein Total Protein Albumin Triglycerides Urine Creatinine Urine Total Protein 09/26/16 09/26/16 09/26/16 08:21 08:34 11:05 Hct [facility] RDW Seg Neutrophils % Sodium Potassium Chloride Carbon Dioxide BUN Creatinine Glucose 580 H* POC Glucose > 500 H > 500 H Calcium Phosphorus Magnesium Alkaline Phosphatase Total Creatine Kinase CK-MB (CK-2) Troponin T C-Reactive Protein Total Protein Albumin Triglycerides Urine Creatinine Urine Total Protein 09/26/16 09/26/16 09/26/16 17:02 17:05 20:31 Hct [facility] RDW Seg Neutrophils % Sodium Potassium Chloride Carbon Dioxide BUN Creatinine Glucose POC Glucose < 40 L 49 L 310 H Calcium Phosphorus Magnesium Alkaline Phosphatase Total Creatine Kinase CK-MB (CK-2) Troponin T C-Reactive Protein Total Protein Albumin Triglycerides Urine Creatinine Urine Total Protein 09/27/16 09/27/16 09/27/16 06:09 11:53 16:49 Hct [facility] RDW Seg Neutrophils % Sodium Potassium Chloride 108.0 H Carbon Dioxide 20 L BUN 58 H Creatinine 3.2 H Glucose 181 H POC Glucose 489 H 428 H Calcium 7.9 L Phosphorus Magnesium Alkaline Phosphatase Total Creatine Kinase CK-MB (CK-2) Troponin T C-Reactive Protein Total Protein Albumin Triglycerides Urine Creatinine Urine Total Protein 09/28/16 05:42 Hct [facility] RDW Seg Neutrophils % Sodium Potassium Chloride Carbon Dioxide 21 L BUN 50 H Creatinine 2.5 H Glucose 170 H POC Glucose Calcium 7.6 L Phosphorus Magnesium Alkaline Phosphatase Total Creatine Kinase CK-MB (CK-2) Troponin T C-Reactive Protein Total Protein Albumin Triglycerides Urine Creatinine Urine Total Protein Chest x-ray: report reviewed (No acute cardiopulmonary process.), image reviewed
[2016-09-28 23:48] LABS: B-Hydroxybutyrate 6.5 mmol/L (0.2 - 0.28)
== END 2016-09-28 14:09 | disposition home health service (06) | DRG 637 ==
LOC: ED 14:14 → CC1 16:41 → 4A 09-24 17:05
PROVIDERS: ADMIT Internal Medicine; ATTEND Internal Medicine
PROC: 30233N1 Transfusion of Nonautologous Red Blood Cells into Peripheral Vein, Percutaneous Approach (ICD-10-PCS; principal; 2016-09-22)
DX: E10.10 Type 1 diabetes mellitus with ketoacidosis without coma (principal); N17.0 Acute kidney failure with tubular necrosis; G92 Toxic encephalopathy; E87.0 Hyperosmolality and hypernatremia; E46 Unspecified protein-calorie malnutrition; I12.9 Hypertensive chronic kidney disease with stage 1 through stage 4 chronic kidney disease, or unspecified chronic kidney disease; E83.51 Hypocalcemia; I95.9 Hypotension, unspecified; N18.3 Chronic kidney disease, stage 3 (moderate); E83.39 Other disorders of phosphorus metabolism; E10.22 Type 1 diabetes mellitus with diabetic chronic kidney disease; E86.0 Dehydration; D63.1 Anemia in chronic kidney disease; Z68.25 Body mass index [BMI] 25.0-25.9, adult; Z79.4 Long term (current) use of insulin
CPT/HCPCS: 36415; 36430; 51702; 70450; 71010; 76770; 80048; 80053; 80061; 80307; 81001; 82010; 82140; 82550; 82553; 82570; 82805; 82947; 82962; 83036; 83735; 84100; 84156; 84300; 84443; 84484; 85007; 85014; 85018; 85025; 85610; 85730; 86140; 86706; 86803; 86850; 86900; 86901; 86920; 87040; 93005; 93010; 96361; 96374; 96375; J0610; J1170; J1650; J1815; J1956; J2405; J3480; J7030; J7040; J7050; J7070; P9016

== ENCOUNTER 2016-09-30 14:22 | Inpatient (IN) | payer OTHER ==
[2016-09-30] MEDS ORDERED: NACL 0.9% 1000 ML 1,000 ML ONE ×3 (14:48→21:42)
[2016-09-30] MEDS ORDERED: NACL 0.9% 1000 ML 1,000 ML IV ONE ×7 (15:29→21:55)
--- NOTE | 2016-09-30 15:34 | Emergency Department Report ---
HPI - General Chief Complaint: Hyperglycemia Time Seen by Provider: 09/30/16 15:27 - HPI HPI: This is a 46-year-old Afro-[place] female who presents to the emergency department by EMS from home with elevated blood sugar and altered mental status. The patient was recently here with diabetic ketoacidosis. Family says that since she has been home, she has not been eating, drinking or taking her medications. Patient family noticed that she was becoming more altered and called EMS. EMS did a blood sugar check and found her blood sugar to be greater than 600 or critical high. Patient is currently altered and a poor historian. ED Past Medical Hx - Past Medical History Previous Medical History?: Yes Hx Hypertension: Yes Hx Congestive Heart Failure: No Hx Diabetes: Yes Hx Sickle Cell Disease: No Hx Asthma: No Hx COPD: No Hx HIV: No - Surgical History Past Surgical History?: No - Social History Smoking Status: Never Smoker Substance Use Type: None - Medications Home Medications: Home Medications Medication Instructions Recorded Confirmed Last Taken Type Antacid [Alum-Mag Hydrox-Simeth 30 ml PO Q4H PRN #30 oral.liqd 09/28/16 Unknown Rx [id number]/5Ml] Famotidine [Pepcid] 20 mg PO DAILY #30 tablet 09/28/16 09/30/16 Unknown Rx Insulin NPH/Regular [NovoLIN 70/30] 12 unit SUB-Q BIDDIAB 30 Days 09/28/1609/30 Unknown Rx Megestrol [Megace] 20 mg PO TID #90 tablet 09/28/16 09/30/16 Unknown Rx Metoprolol [Lopressor TAB] 25 mg PO BID #60 tablet 09/28/16 09/30/16 Unknown Rx ED Review of Systems ROS: Stated complaint: HIGH BLOOD SUGAR Other details as noted in HPI Comment: Unobtainable due to pts medical conditions Physical Exam - Physical Exam Physical Exam: GENERAL: Patient is ill-appearing and confused. HEENT: Normocephalic. Atraumatic. Extraocular motions are intact. Patient has moist mucous membranes. Pupils equal reactive to light bilaterally. NECK: Supple. Trachea is midline. CHEST/LUNGS: Clear to auscultation. There is tachypnea and no accessory muscle use. There is no respiratory distress noted. HEART/CARDIOVASCULAR: Regular. There is no tachycardia. There is no gallop rub or murmur. ABDOMEN: Abdomen is soft, nontender. Patient has normal bowel sounds. There is no abdominal distention. SKIN: Skin is warm and dry. NEURO: The patient is awake but confused and encephalopathic. She is AAO times one to person but not place or time. Patient is not cooperative. Withdraws from painful stimuli. MUSCULOSKELETAL: There is no tenderness or deformity. There is no limitation range of motion. Radial pulses +2 over 4 bilaterally. Cap refill less than 2 seconds. - Central Line Placement Right Femoral Consent Obtained: emergent situation Time Out Performed: Yes Patient Placed on Monitor/Pulse Ox: Yes MD Prep: mask, gown, gloves Central Line Prep: Chlorhexidine scrub Local Anesthesia Used: Lidocaine 1% Amount of Anesthesia Used (mls): 3 Ultrasound Used for Placement: Yes Central Line Lumen Inserted: triple Bloods Obtained for Lab: No Central Line Position: good blood return, all ports aspirated, flus, sutured in place with nyl Dressing Applied: Tegaderm, sterile gauze/tape Patient Tolerated Procedure: well Complications: none ED Medical Decision Making - Lab Data Result diagrams: 09/30/16 15:46 09/30/16 17:13 - EKG Data -: EKG Interpreted by Me EKG shows normal: sinus rhythm, axis (right axis deviation), intervals, QRS complexes, ST-T waves (tented T waves in the anterior leads, nonspecific ST-T changes) Rate: normal - EKG Data When compared to previous EKG there are: previous EKG unavailable Interpretation: other (sinus rhythm, right axis deviation, tenting T waves in the anterior leads, nonspecific ST-T changes) - Medical Decision Making 46-year-old female who presents the emergency department with altered mental status and hyperglycemia found by EMS. Patient is in diabetic acidosis and has altered mental status/encephalopathy. Patient given IV fluid resuscitation secondary to her hyperglycemia and hypotension. Insulin drip started. Patient has a blood sugar of greater than 1200, venous pH of 6.8 and a lactic acid level of 9.8. Patient received 4 L of IV fluid and still maintained some borderline hypotension so a central line was placed in the right femoral vein. Patient started on pressors. The patient is critically ill and will be admitted to the ICU. - Differential Diagnosis DKA, HHNK, hyperkalemia, CVA Critical Care Time: Yes Critical care time in (mins) excluding proc time.: 35 Critical care attestation.: If time is entered above; I have spent that time in minutes in the direct care of this critically ill patient, excluding procedure time. Critical care time spent on this patient and doing her initial evaluation, multiple re-evaluations , IV fluid resuscitation for hypotension, ordering and evaluation of labs, ordering of medications, disposition planning, discussion with admitting hospitalist. This does not include the time spent doing the central line catheter procedure. Critical Care Time: 35 minutes ED Disposition Clinical Impression: Chronic kidney disease, stage III (moderate), Metabolic encephalopathy, Lactic acidosis, Hyperkalemia DKA (diabetic ketoacidoses) Qualifiers: Diabetes mellitus type: type 1 Diabetes mellitus complication detail: without coma Qualified Code(s): E10.10 - Type 1 diabetes mellitus with ketoacidosis without coma Altered mental status Qualifiers: Altered mental status type: unspecified Qualified Code(s): R41.82 - Altered mental status, unspecified Hypotension Qualifiers: Hypotension type: unspecified hypotension type Qualified Code(s): I95.9 - Hypotension, unspecified Disposition: OP ADMITTED IP TO THIS HOSP Is pt being admited?: Yes Condition: Critical Time of Disposition: 18:43
[2016-09-30 16:05] LABS: Urine Drugs of Abuse Note Disclamer
[2016-09-30 16:24] LABS: Bacteria,Urine 1+ /HPF (Negative); Bilirubin,Urine NEG (Negative); Blood,Urine SM (Negative); Ketones,Urine 20 mg/dL (Negative); Leukocyte Esterase,Urine NEG (Negative); Mucus,Urine FEW /HPF; Nitrite,Urine NEG (Negative); Urobilinogen,Urine < 2.0 mg/dL (<2.0); WBC,Urine < 1.0 /HPF (0.0-6.0)
[2016-09-30 16:26] LABS: Mean Corpuscular HGB Conc 25 % (30-34); Mean Corpuscular Hemoglobin 27 pg (28-32); Mean Corpuscular Volume 109 fl (79-97); Platelet Count 369 K/mm3 (140-440)
[2016-09-30 16:27] LABS: Hemoglobin 9.4 gm/dl (10.1-14.3); White Blood Count 20.9 K/mm3 (4.5-11.0)
[2016-09-30 16:28] LABS: Hematocrit 38.3 % (30.3-42.9); Red Cell Distribution Width 20.8 % (13.2-15.2)
--- NOTE | 2016-09-30 16:31 | Admit Criteria Form ---
Admission Criteria Documentation: DIABETES Clinical Indications for Admission to Inpatient Care (Place 'X' for any and all applicable criteria): Admission is indicated by presence of ALL (if I & II) or ANY ONE (if III or IV) of the following (1)(2)(3)(4): [X]I. Diabetes is uncontrolled as indicated by ANY ONE of the following: [X]a) Diabetic ketoacidosis as indicated by ALL of the following (8): [X ]i) Hyperglycemia (eg, plasma glucose greater than 200 mg /dL (11.1 mmol/L)) [X ]ii) Acidosis (eg, arterial pH less than 7.30, serum bicarbonate level less than 15 mEq/L (mmol/L)) [ ]iii) Moderate ketonuria or ketonemia [ ]b) Hyperglycemic hyperosmolar state as indicated by ALL of the following(9)(10): [ ]i) Neurologic dysfunction (eg, stupor, coma, hemiparesis , seizure)(13) [ ]ii) Plasma glucose greater than 600 mg/dL (33.3 mmol/L) [ ]iii) Serum osmolality greater than 320 mOsm/kg (mmol/kg) [X]c) Severe signs or symptoms secondary to hyperglycemia indicated by ANY ONE of the following: [X ]i) Altered mental status(10) [X]ii) Significant hypovolemia or dehydration [ ]iii) Intractable nausea or vomiting [ ]iv) Unexplained fever or severe infection [X]v) Severe electrolyte abnormality (eg, hypokalemia, hyperkalemia, hypernatremia) [ ]II. Management at other levels of care (Also use Diabetes: Observation Care as appropriate) is not feasible because of ANY ONE of the following: [ ]a) Condition was not adequately corrected with treatment at other levels of care. [ ]b) Treatment at other levels of care is not appropriate because of condition severity (eg, hyperosmolar coma). [ ]III. Contraindications and/or Inappropriate clinical situations for Observational Care in patients with Diabetes, when ANY ONE of the following is required: [ ]a) Patient require specific diagnostic workup or therapeutic intervention 22 [ ]b) Patient with abnormal vital signs or altered mental status 23 [ ]IV. General contraindications and/or Inappropriate clinical situations for Observational Care in patients with Diabetes, when ANY ONE of the following is required: [ ]a) Prediction of prolongation of LOS based on ANY ONE of the following may be considered as a contraindication for observational care 2, 3, 4, 5, 6, 7, 8, 9, 10, 11 [ ]i) Age > 65 yrs. [ ]ii) Patient arriving by ambulance [ ]iii) Patient with high acuity [ ]iv) Patient requiring vital sign monitoring [ ]v) Patient on IV medication [ ]b) Systolic blood pressures 180mmHg 3,12 [ ]c) Patient with altered mental status including delirium and other alteration of consciousness, (3) [ ]d) Patient whose discharge disposition will be to a long term home or rehabilitation home should not be managed in Emergency Department Observation Unit. CMS rule requires 3 days hospital stay before such placement.3,13 [ ]e) Patient with failure to thrive due to broad array of etiologies 3,16,17 [ ]f) Inability to ambulate 3,14 Extended stay beyond goal length of stay may be needed for(3)(20): [ ]a) Treatment of precipitating causes [ ]b) Development of hypoglycemia [ ]c) Complications of treatment [ ]d) Complications of decompensated diabetes (eg, acute gastric dilatation, persistent metabolic or neurologic derangement) [ ]e) Active Comorbidities [ ]f) Older patients( 65 years or older) The original [facility] content created by [employer] has been revised. The portions of the content which have been revised are identified through the use of italic text or in bold,and [facility] has neither reviewed nor approved the modified material. All other unmodified content is copyright [facility]. Please see references footnoted in the original [facility] edition 2016 Admission Criteria Met: Yes
[2016-09-30] MEDS ORDERED: D50W (25GM) IV PRN ×3 (16:44→16:51)
[2016-09-30] MEDS ORDERED: SODIUM BICARBONATE 150 MEQ in D5W 1,000 ML IV ONE (16:44)
[2016-09-30 16:45] LABS: Alanine Aminotransferase 12 units/L (7-56); Albumin 2.7 g/dL (3.9-5); Albumin/Globulin Ratio 1.1 %; Alkaline Phosphatase 138 units/L (35-129); Bilirubin,Total < 0.2 mg/dL (0.1-1.2); Blood Urea Nitrogen 56 mg/dL (7-17); Calcium 7.4 mg/dL (8.4-10.2); Chloride 95.1 mmol/L (98-107); Sodium 143 mmol/L (137-145); Total Protein 5.2 g/dL (6.3-8.2)
[2016-09-30] MEDS ORDERED: DULCOLAX PR PRN (16:51)
[2016-09-30] MEDS ORDERED: MILK OF MAGNESIA PO PRN (16:51)
[2016-09-30] MEDS ORDERED: DUONEB 0.5 MG-3 MG/3 ML SOLN IH PRN (16:51)
[2016-09-30] MEDS ORDERED: VANCOMYCIN VIAL 1,000 MG in NACL 0.9% 500 ML 500 ML IV ONE (16:51)
[2016-09-30] MEDS ORDERED: NACL 0.9% 1000 ML IV ONE (16:51)
[2016-09-30] MEDS ORDERED: ALUM-MAG HYDROX-SIMETH 200-200-20MG/5ML PO PRN (16:51)
[2016-09-30] MEDS ORDERED: SODIUM BICARBONATE IV ONE (17:00)
[2016-09-30] MEDS ORDERED: VANCOMYCIN PHARMACY TO DOSE IV SCH (17:00)
--- NOTE | 2016-09-30 17:01 | History and Physical Report ---
History of Present Illness Chief complaint: i feel sick, History of present illness: 46 YO Female with HTN, Malnutrition, DM, Medication Noncompliance presents to ED for evaluation. Pt states that she feels sick. Pt is unable to provide history. History taken from family as ED staff. Pt family reports that pt has not been eating, drinking or taking her medications and has become confused today. EMS notified and patient found to have blood glucose above 600. No reports of fever, chills, CP, Palpitations, Syncope, trauma, falls, or loss of consciousness. Past History Past Medical History: diabetes Past Surgical History: No surgical history, Other (reviewed) Social history: single Family history: diabetes, hypertension Medications and Allergies Allergies Allergy/AdvReac Type Severity Reaction Status Date / Time No Known Allergies Allergy Verified 03/26/14 03:17 Home Medications Medication Instructions Recorded Confirmed Last Taken Type Antacid [Alum-Mag Hydrox-Simeth 30 ml PO Q4H PRN #30 oral.liqd 09/28/16 Unknown Rx [id number]/[id number]] Famotidine [Pepcid] 20 mg PO DAILY #30 tablet 09/28/16 09/30/16 Unknown Rx Insulin NPH/Regular [NovoLIN 70/30] 12 unit SUB-Q BIDDIAB 30 Days 09/28/1609/30 Unknown Rx Megestrol [Megace] 20 mg PO TID #90 tablet 09/28/16 09/30/16 Unknown Rx Metoprolol [Lopressor TAB] 25 mg PO BID #60 tablet 09/28/16 09/30/16 Unknown Rx Active Meds: Active Medications Al Hydrox/Mg Hydrox/Simethicone (Alum-Mag Hydrox-Simeth 584-061-52dr/5ml) 30 ml PO Q4H PRN PRN Reason: Indigestion Albuterol/Ipratropium (Duoneb 0.5 Mg-3 Mg/3 Ml Soln) 1 ampul IH Q6HRT PRN PRN Reason: Wheezing Bisacodyl (Dulcolax) 10 mg MO QDAY PRN PRN Reason: constipation unrelieved by MOM Dextrose (D50w (25gm)) 0 ml IV PRN PRN PRN Reason: Hypoglycemia Dextrose (D50w (25gm)) 0 ml IV PRN PRN PRN Reason: Hypoglycemia Dextrose (D50w (25gm)) 0 ml IV ONCE PRN PRN Reason: Hypoglycemia Heparin Sodium (Porcine) (Heparin) 5,000 unit SUB-Q Q12HR ULI Insulin Human Regular 100 (units/ Sodium Chloride) 100 mls @ 7 mls/hr IV TITR ULI; 7 UNITS/HR PRN Reason: Protocol Levofloxacin/Dextrose (Levaquin 750mg/150ml) 750 mg in 150 mls @ 100 mls/hr IV Q24HR ULI PRN Reason: Protocol Insulin Human Regular 100 (units/ Sodium Chloride) 100 mls @ 1 mls/hr IV TITR ULI; 1 UNITS/HR PRN Reason: Protocol Vancomycin HCl 1,000 mg/ (Sodium Chloride) 500 mls @ 334 mls/hr IV ONCE ONE PRN Reason: Protocol Stop: 09/30/16 18:20 Piperacillin Sod/Tazobactam Sod (Zosyn/Ns 4.5gm/100ml) 4.5 gm in 100 mls @ 200 mls/hr IV Q6HR ULI PRN Reason: Protocol Magnesium Hydroxide (Milk Of Magnesia) 30 ml PO Q4H PRN PRN Reason: Constipation Sodium Chloride (Nacl 0.9% 1000 Ml) 1,500 ml 30 ml/kg (1500 ml) IV ONCE ONE Stop: 09/30/16 16:52 Vancomycin HCl (Vancomycin Pharmacy To Dose) 1 each IV PKCONSULT ULI PRN Reason: Protocol Review of Systems ROS unobtainable: due to mental status Exam - Constitutional Vitals: Temp Pulse Resp BP Pulse Ox 93 H 18 89/45 100 09/30/16 16:05 09/30/16 16:16 09/30/16 15:30 09/30/16 16:16 General appearance: Present: severe distress - EENT Eyes: Present: PERRL, EOM intact - Neck Neck: Present: supple - Respiratory Respiratory: bilateral: diminished - Cardiovascular Rhythm: regular Heart Sounds: Present: S1 & S2 - Extremities Extremities: pulses symmetrical, No edema Peripheral Pulses: abnormal (capillary refill: 3.5 seconds) - Abdominal General gastrointestinal: Present: soft, non-tender, non-distended - Integumentary Integumentary: Present: clear, warm, dry, clammy, pale - Musculoskeletal Musculoskeletal: generalized weakness - Psychiatric Psychiatric: no intact judgment & insight, no memory intact - Neurologic Neurologic: CNII-XII intact, moves all extremities Results - Labs CBC & Chem 7: 09/30/16 15:46 09/30/16 15:46 Labs: Abnormal lab results 09/30/16 09/30/16 09/30/16 Range/Units 15:46 15:46 15:46 WBC 20.9 H (4.5-11.0) K/mm3 RBC 3.50 L (3.65-5.03) M/mm3 Hgb 9.4 L (10.1-14.3) gm/dl MCV 109 H (79-97) fl MCH 27 L (28-32) pg MCHC 25 L (30-34) % RDW 20.8 H (13.2-15.2) % VBG pH 6.809 L* (7.320-7.420) Chloride 95.1 L (98-107) mmol/L BUN 56 H (7-17) mg/dL Creatinine 3.2 H (0.7-1.2) mg/dL Lactic Acid (0.7-2.0) mmol/L Calcium 7.4 L (8.4-10.2) mg/dL Alkaline Phosphatase 138 H (35-129) units/L Total Protein 5.2 L (6.3-8.2) g/dL Albumin 2.7 L (3.9-5) g/dL 09/30/16 Range/Units 15:46 WBC (4.5-11.0) K/mm3 RBC (3.65-5.03) M/mm3 Hgb (10.1-14.3) gm/dl MCV (79-97) fl MCH (28-32) pg MCHC (30-34) % RDW (13.2-15.2) % VBG pH (7.320-7.420) Chloride (98-107) mmol/L BUN (7-17) mg/dL Creatinine (0.7-1.2) mg/dL Lactic Acid 9.8 H* (0.7-2.0) mmol/L Calcium (8.4-10.2) mg/dL Alkaline Phosphatase (35-129) units/L Total Protein (6.3-8.2) g/dL Albumin (3.9-5) g/dL Assessment and Plan - Patient Problems (1) Septic shock Current Visit: Yes Status: Acute Plan to address problem: Sepsis protocol: IV fluid, IV abx, monitor uop q shift, serial lactate, IV pressor support as clinically indicated to maintain MAP above or equal to 65 (2) Acute renal failure Current Visit: Yes Status: Acute Qualifiers: Acute renal failure type: A Plan to address problem: monitor uop q shift, IVR replacement, corona catheter, supportive care. (3) Lactic acidosis Current Visit: Yes Status: Acute Plan to address problem: Trat septic shock, serial lactate level per protocol (4) Metabolic encephalopathy Current Visit: Yes Status: Acute Plan to address problem: IVF, supportive care, treat DKA, and sepsis. 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 (7) DVT prophylaxis Current Visit: Yes Status: Acute
[2016-09-30] MEDS ORDERED: ZOSYN/NS 4.5GM/100ML 4.5 GM/100 ML VIAL IV ONE (17:03)
[2016-09-30 17:08] LABS: Basophils % (Manual) 0 % (0.0-1.8); Blastocytes % (Manual) 0 %; Eosinophils % (Manual) 0 % (0.0-4.3); Magnesium 2.7 mg/dL (1.7-2.3); Phosphorous 16.3 mg/dL (2.5-4.5)
[2016-09-30 17:09] LABS: Anisocytosis 1+; Large Platelets Few; Platelet Estimate Consistent w Auto
[2016-09-30 17:10] LABS: Diff Status Complete; Poikilocytosis Few
[2016-09-30 17:12] LABS: Potassium 7.1 mmol/L (3.6-5.0)
[2016-09-30 17:13] LABS: Anion Gap 53 mmol/L; Carbon Dioxide 2 mmol/L (22-30); Glucose 1242 mg/dL (65-100)
[2016-09-30] MEDS ORDERED: PROVENTIL IH ONE ×2 (17:17→19:29)
[2016-09-30] MEDS ORDERED: CALCIUM CHLORIDE IV ONE ×2 (17:18→18:31)
[2016-09-30] MEDS ORDERED: PROVENTIL IH PRN (17:23)
[2016-09-30] MEDS ORDERED: NACL 0.9% 1000 ML 2,000 ML ONE ×2 (17:48→20:48)
[2016-09-30 17:51] LABS: Magnesium 2.6 mg/dL (1.7-2.3); Phosphorous 14.5 mg/dL (2.5-4.5)
[2016-09-30 17:52] LABS: BUN/Creatinine Ratio 16.66; Chloride 94.4 mmol/L (98-107)
[2016-09-30] MEDS ORDERED: LEVAQUIN 750MG/150ML 750 MG/150 ML BAG IV ONE (18:00)
[2016-09-30] MEDS ORDERED: VANCOMYCIN/NS 1 GM/250 ML 1 GM/250 ML BAG IV ONE ×2 (18:00→18:05)
[2016-09-30] MEDS ORDERED: ZOSYN/NS 4.5GM/100ML 4.5 GM/100 ML VIAL IV SCH (18:00)
[2016-09-30] MEDS ORDERED: LEVOPHED DRIP 4 MG/NS 250 ML 4 MG/250 ML BAG IV ONE ×2 (18:04)
[2016-09-30] MEDS: NovoLIN R 100 UNITS in NACL 0.9% 99 ML IV SCH (18:12)
[2016-09-30 18:14] LABS: Potassium 7.3 mmol/L (3.6-5.0)
[2016-09-30] MEDS ORDERED: NACL 0.9% 1000 ML 2,500 ML IV ONE (18:57)
[2016-09-30] MEDS: ZOSYN/NS 2.25 GM/50ML 2.25 GM/50 ML BAG IV SCH (19:29)
[2016-09-30] MEDS ORDERED: LEVOPHED DRIP 4 MG/NS 250 ML 4 MG/250 ML BAG IV SCH (20:00)
[2016-09-30] MEDS ORDERED: CARDIZEM ONE (20:19)
[2016-09-30] MEDS ORDERED: CARDIZEM IV ONE (20:20)
[2016-09-30 20:53] LABS: BUN/Creatinine Ratio 17.24; Calcium 7.3 mg/dL (8.4-10.2); Chloride 104.4 mmol/L (98-107); Potassium 5.9 mmol/L (3.6-5.0)
[2016-09-30] MEDS ORDERED: HEPARIN ONE (21:35)
[2016-09-30 22:00] LABS: ISTAT Base Excess < -30; ISTAT DEVICE 0; ISTAT HCO3 2.8; ISTAT PCO2 14.9 (35-45); ISTAT PH 6.889 (7.35-7.45); ISTAT PO2 111 (80-105); ISTAT SO2 93; ISTAT TCO2 < 5
[2016-10-01] MEDS: LOPRESSOR PO SCH ×3 (01:22→22:22)
[2016-10-01 02:05] LABS: BUN/Creatinine Ratio 15.17; Calcium 6.5 mg/dL (8.4-10.2)
[2016-10-01] MEDS: ZOSYN/NS 2.25 GM/50ML 2.25 GM/50 ML BAG IV SCH ×2 (06:07→22:00)
[2016-10-01] MEDS ORDERED: LEVAQUIN 750MG/150ML 750 MG/150 ML BAG IV ONE (10:00)
[2016-10-01] MEDS ORDERED: LEVAQUIN 750MG/150ML 750 MG/150 ML BAG IV SCH (10:00)
--- NOTE | 2016-10-01 10:41 | Progress Note ---
Assessment and Plan Assessment and plan: 46 YO Female with HTN, Malnutrition, DM, Medication Noncompliance presents to ED for evaluation. Pt states that she feels sick. Pt is unable to provide history. History taken from family as ED staff. Pt family reports that pt has not been eating, drinking or taking her medications and has become confused today. 1. Sirs We'll slightly due to DKA, infectious etiology ruled out, culture is negative, chest x-ray and UA were negative. 2. DKA Continue insulin drip continue IV fluids 3. Dehydration/hypernatremia Continue IV fluids, continue D5 water 4. Toxic metabolic encephalopathy Now resolved most likely due to DKA 5. Acute kidney injury Most likely due to vasomotor nephropathy, continue IV fluids, obtain nephrology consult History Interval history: She continues to have bilious vomiting. Otherwise she feels better, mentation is improved. Denies dysuria, denies cough or sputum production Hospitalist Physical - Physical exam Narrative exam: General: Patient appears well in no distress HEENT: MMM, EOMI cardiac: S1-S2 heard lungs: clear to auscultation, abdomen: soft, nontender, nondistended bowel sounds positive extremities: no edema clubbing or cyanosis Skin: no rash or lesion Neuro: no focal deficit Psych: appropriate behavior and mood, cognition intact - Constitutional Vitals: Temp Pulse Resp BP Pulse Ox 98.6 F 111 H 16 131/73 100 10/01/16 08:00 10/01/16 06:51 10/01/16 06:51 10/01/16 06:51 10/01/16 08:17 General appearance: Present: severe distress Results - Labs CBC & Chem 7: 09/30/16 15:46 10/01/16 01:00 Labs: Laboratory Last Values WBC 20.9 K/mm3 (4.5-11.0) H 09/30/16 15:46 RBC 3.50 M/mm3 (3.65-5.03) L 09/30/16 15:46 Hgb 9.4 gm/dl (10.1-14.3) L 09/30/16 15:46 Hct 38.3 % (30.3-42.9) 09/30/16 15:46 MCV 109 fl (79-97) H 09/30/16 15:46 MCH 27 pg (28-32) L 09/30/16 15:46 MCHC 25 % (30-34) L 09/30/16 15:46 RDW 20.8 % (13.2-15.2) H 09/30/16 15:46 Plt Count 369 K/mm3 (140-440) 09/30/16 15:46 Add Manual Diff Complete 09/30/16 15:46 Total Counted 100 09/30/16 15:46 Seg Neuts % (Manual) 79.0 % (40.0-70.0) H 09/30/16 15:46 Band Neutrophils % 1.0 % 09/30/16 15:46 Lymphocytes % (Manual) 4.0 % (13.4-35.0) L 09/30/16 15:46 Reactive Lymphs % (Man) 0 % 09/30/16 15:46 Monocytes % (Manual) 10.0 % (0.0-7.3) H 09/30/16 15:46 Eosinophils % (Manual) 0 % (0.0-4.3) 09/30/16 15:46 Basophils % (Manual) 0 % (0.0-1.8) 09/30/16 15:46 Metamyelocytes % 1.0 % 09/30/16 15:46 Myelocytes % 5.0 % 09/30/16 15:46 Promyelocytes % 0 % 09/30/16 15:46 Blast Cells % 0 % 09/30/16 15:46 Nucleated RBC % Not Reportable 09/30/16 15:46 Seg Neutrophils # Man 16.5 K/mm3 (1.8-7.7) H 09/30/16 15:46 Band Neutrophils # 0.2 K/mm3 09/30/16 15:46 Lymphocytes # (Manual) 0.8 K/mm3 (1.2-5.4) L 09/30/16 15:46 Abs React Lymphs (Man) 0.0 K/mm3 09/30/16 15:46 Monocytes # (Manual) 2.1 K/mm3 (0.0-0.8) H 09/30/16 15:46 Eosinophils # (Manual) 0.0 K/mm3 (0.0-0.4) 09/30/16 15:46 Basophils # (Manual) 0.0 K/mm3 (0.0-0.1) 09/30/16 15:46 Metamyelocytes # 0.2 K/mm3 09/30/16 15:46 Myelocytes # 1.0 K/mm3 09/30/16 15:46 Promyelocytes # 0.0 K/mm3 09/30/16 15:46 Blast Cells # 0.0 K/mm3 09/30/16 15:46 WBC Morphology Not Reportable 09/30/16 15:46 Hypersegmented Neuts Not Reportable 09/30/16 15:46 Hyposegmented Neuts Not Reportable 09/30/16 15:46 Hypogranular Neuts Not Reportable 09/30/16 15:46 Smudge Cells Not Reportable 09/30/16 15:46 Toxic Granulation Not Reportable 09/30/16 15:46 Toxic Vacuolation Not Reportable 09/30/16 15:46 Dohle Bodies Not Reportable 09/30/16 15:46 Pelger-Huet Anomaly Not Reportable 09/30/16 15:46 Mary Rods Not Reportable 09/30/16 15:46 Platelet Estimate Consistent w auto 09/30/16 15:46 Clumped Platelets Not Reportable 09/30/16 15:46 Plt Clumps, EDTA Not Reportable 09/30/16 15:46 Large Platelets Few 09/30/16 15:46 Giant Platelets Not Reportable 09/30/16 15:46 Platelet Satelliting Not Reportable 09/30/16 15:46 Plt Morphology Comment Not Reportable 09/30/16 15:46 RBC Morphology Not Reportable 09/30/16 15:46 Dimorphic RBCs Not Reportable 09/30/16 15:46 Polychromasia Not Reportable 09/30/16 15:46 Hypochromasia Not Reportable 09/30/16 15:46 Poikilocytosis Few 09/30/16 15:46 Anisocytosis 1+ 09/30/16 15:46 Microcytosis Not Reportable 09/30/16 15:46 Macrocytosis Not Reportable 09/30/16 15:46 Spherocytes Not Reportable 09/30/16 15:46 Pappenheimer Bodies Not Reportable 09/30/16 15:46 Sickle Cells Not Reportable 09/30/16 15:46 Target Cells Not Reportable 09/30/16 15:46 Tear Drop Cells Not Reportable 09/30/16 15:46 Ovalocytes Not Reportable 09/30/16 15:46 Helmet Cells Not Reportable 09/30/16 15:46 Landers-Goehner Bodies Not Reportable 09/30/16 15:46 [place] Rings Not Reportable 09/30/16 15:46 Jerri Cells Not Reportable 09/30/16 15:46 Bite Cells Not Reportable 09/30/16 15:46 Crenated Cell Not Reportable 09/30/16 15:46 Elliptocytes Not Reportable 09/30/16 15:46 Acanthocytes (Spur) Not Reportable 09/30/16 15:46 Rouleaux Not Reportable 09/30/16 15:46 Hemoglobin C Crystals Not Reportable 09/30/16 15:46 Schistocytes Not Reportable 09/30/16 15:46 Malaria parasites Not Reportable 09/30/16 15:46 Michael Bodies Not Reportable 09/30/16 15:46 Hem Pathologist Commnt No 09/30/16 15:46 POC ABG pH 6.889 (7.35-7.45) L 09/30/16 21:51 POC ABG pCO2 14.9 (35-45) L 09/30/16 21:51 POC ABG pO2 111 (80-105) H 09/30/16 21:51 POC ABG HCO3 2.8 09/30/16 21:51 POC ABG Total CO2 < 5 09/30/16 21:51 POC ABG O2 Sat 93 09/30/16 21:51 POC ABG Base Excess < -30 09/30/16 21:51 VBG pH 6.809 (7.320-7.420) L* 09/30/16 15:46 FiO2 21 % 09/30/16 21:51 Sodium 152 mmol/L (137-145) H 10/01/16 01:00 Potassium 4.0 mmol/L (3.6-5.0) D 10/01/16 01:00 Chloride 115.0 mmol/L (98-107) H 10/01/16 01:00 Carbon Dioxide 5 mmol/L (22-30) L* 10/01/16 01:00 Anion Gap 36 mmol/L 10/01/16 01:00 BUN 44 mg/dL (7-17) H 10/01/16 01:00 Creatinine 2.9 mg/dL (0.7-1.2) H 10/01/16 01:00 Estimated GFR 21 ml/min 10/01/16 01:00 BUN/Creatinine Ratio 15.17 % 10/01/16 01:00 Glucose 571 mg/dL (65-100) H* 10/01/16 01:00 POC Glucose 170 (70-105) H 10/01/16 07:59 Lactic Acid 5.7 mmol/L (0.7-2.0) H* 09/30/16 20:14 Calcium 6.5 mg/dL (8.4-10.2) L 10/01/16 01:00 Phosphorus 14.5 mg/dL (2.5-4.5) H 09/30/16 17:13 Magnesium 2.6 mg/dL (1.7-2.3) H 09/30/16 17:13 Total Bilirubin < 0.2 mg/dL (0.1-1.2) 09/30/16 15:46 AST 25 units/L (5-40) 09/30/16 15:46 ALT 12 units/L (7-56) 09/30/16 15:46 Alkaline Phosphatase 138 units/L (35-129) H 09/30/16 15:46 Total Creatine Kinase 83 units/L (30-135) 09/30/16 15:46 Total Protein 5.2 g/dL (6.3-8.2) L 09/30/16 15:46 Albumin 2.7 g/dL (3.9-5) L 09/30/16 15:46 Albumin/Globulin Ratio 1.1 % 09/30/16 15:46 TSH 1.120 mlU/mL (0.270-4.200) 09/30/16 15:46 HCG, Qual Negative (Negative) 09/30/16 15:46 Urine Color Yellow (Yellow) 09/30/16 16:00 Urine Turbidity Cloudy (Clear) 09/30/16 16:00 Urine pH 5.0 (5.0-7.0) 09/30/16 16:00 Ur Specific [place] 1.017 (1.003-1.030) 09/30/16 16:00 Urine Protein 30 mg/dl mg/dL (Negative) 09/30/16 16:00 Urine Glucose (UA) >=500 mg/dL (Negative) 09/30/16 16:00 Urine Ketones 20 mg/dL (Negative) 09/30/16 16:00 Urine Blood Sm (Negative) 09/30/16 16:00 Urine Nitrite Neg (Negative) 09/30/16 16:00 Urine Bilirubin Neg (Negative) 09/30/16 16:00 Urine Urobilinogen < 2.0 mg/dL (<2.0) 09/30/16 16:00 Ur Leukocyte Esterase Neg (Negative) 09/30/16 16:00 Urine WBC (Auto) < 1.0 /HPF (0.0-6.0) 09/30/16 16:00 Urine RBC (Auto) 2.0 /HPF (0.0-6.0) 09/30/16 16:00 U Epithel Cells (Auto) 1.0 /HPF (0-13.0) 09/30/16 16:00 Urine Bacteria (Auto) 1+ /HPF (Negative) 09/30/16 16:00 Urine Mucus Few /HPF 09/30/16 16:00 Urine Opiates Screen Presumptive negative 09/30/16 16:00 Urine Methadone Screen Presumptive negative 09/30/16 16:00 Ur Barbiturates Screen Presumptive negative 09/30/16 16:00 Ur Phencyclidine Scrn Presumptive negative 09/30/16 16:00 Ur Amphetamines Screen Presumptive negative 09/30/16 16:00 U Benzodiazepines Scrn Presumptive negative 09/30/16 16:00 Urine Cocaine Screen Presumptive negative 09/30/16 16:00 U Marijuana (THC) Screen Presumptive negative 09/30/16 16:00 Drugs of Abuse Note Disclamer 09/30/16 16:00 Plasma/Serum Alcohol < 0.01 gm% (0-0.07) 09/30/16 15:46 - Imaging and Cardiology Chest x-ray: image reviewed (no infiltrates seen)
[2016-10-01] MEDS: HEPARIN SUB-Q SCH ×3 (11:00→22:22)
[2016-10-01] MEDS: NovoLIN R 100 UNITS in NACL 0.9% 99 ML IV SCH ×2 (11:07→22:00)
--- NOTE | 2016-10-01 11:12 | XRay Report ---
AP CHEST: HISTORY: Sepsis AP view of the chest demonstrates a normal mediastinal and cardiac contour with clear lungs and normal bony and soft tissue structures. No significant change since 09/22/16. IMPRESSION: Unremarkable AP chest.
[2016-10-01] MEDS: D5W 1,000 ML IV SCH ×2 (11:15→19:38)
[2016-10-01 16:54] LABS: Chloride 118.5 mmol/L (98-107); Potassium 4.1 mmol/L (3.6-5.0)
[2016-10-01 16:55] LABS: BUN/Creatinine Ratio 13.92; Calcium 6.5 mg/dL (8.4-10.2)
[2016-10-02] MEDS: NovoLIN R 100 UNITS in NACL 0.9% 99 ML IV SCH ×11 (01:00→22:16)
[2016-10-02] MEDS: D5W 1,000 ML IV SCH (03:31)
[2016-10-02] MEDS: ZOSYN/NS 2.25 GM/50ML 2.25 GM/50 ML BAG IV SCH (05:57)
[2016-10-02] MEDS: LOPRESSOR PO SCH ×2 (10:08→21:57)
--- NOTE | 2016-10-02 10:21 | Progress Note ---
Assessment and Plan Assessment and plan: 46 YO Female with HTN, Malnutrition, DM, Medication Noncompliance presents to ED for evaluation. Pt states that she feels sick. Pt is unable to provide history. History taken from family as ED staff. Pt family reports that pt has not been eating, drinking or taking her medications and has become confused today. 1. Sirs due to DKA, infectious etiology ruled out, culture is negative, chest x-ray and UA were negative. 2. DKA Continue insulin drip continue IV fluids 3. Dehydration/hypernatremia Continue IV fluids, continue D5 water 4. Toxic metabolic encephalopathy Now resolved most likely due to DKA 5. Acute kidney injury Most likely due to vasomotor nephropathy, continue IV fluids, obtain nephrology consult Critical Care time 32 minutes History Interval history: She continues to have bilious vomiting. Otherwise she feels better, mentation is improved. Denies dysuria, denies cough or sputum production Hospitalist Physical - Physical exam Narrative exam: General: Patient appears well in no distress HEENT: MMM, EOMI cardiac: S1-S2 heard lungs: clear to auscultation, abdomen: soft, nontender, nondistended bowel sounds positive extremities: no edema clubbing or cyanosis Skin: no rash or lesion Neuro: no focal deficit Psych: appropriate behavior and mood, cognition intact - Constitutional Vitals: Temp Pulse Resp BP Pulse Ox 98.0 F 98 H 17 128/83 98 10/02/16 03:36 10/02/16 05:11 10/02/16 05:11 10/02/16 05:11 10/02/16 05:11 General appearance: Present: severe distress Results - Labs CBC & Chem 7: 09/30/16 15:46 10/01/16 16:21 Labs: Laboratory Last Values WBC 20.9 K/mm3 (4.5-11.0) H 09/30/16 15:46 RBC 3.50 M/mm3 (3.65-5.03) L 09/30/16 15:46 Hgb 9.4 gm/dl (10.1-14.3) L 09/30/16 15:46 Hct 38.3 % (30.3-42.9) 09/30/16 15:46 MCV 109 fl (79-97) H 09/30/16 15:46 MCH 27 pg (28-32) L 09/30/16 15:46 MCHC 25 % (30-34) L 09/30/16 15:46 RDW 20.8 % (13.2-15.2) H 09/30/16 15:46 Plt Count 369 K/mm3 (140-440) 09/30/16 15:46 Add Manual Diff Complete 09/30/16 15:46 Total Counted 100 09/30/16 15:46 Seg Neuts % (Manual) 79.0 % (40.0-70.0) H 09/30/16 15:46 Band Neutrophils % 1.0 % 09/30/16 15:46 Lymphocytes % (Manual) 4.0 % (13.4-35.0) L 09/30/16 15:46 Reactive Lymphs % (Man) 0 % 09/30/16 15:46 Monocytes % (Manual) 10.0 % (0.0-7.3) H 09/30/16 15:46 Eosinophils % (Manual) 0 % (0.0-4.3) 09/30/16 15:46 Basophils % (Manual) 0 % (0.0-1.8) 09/30/16 15:46 Metamyelocytes % 1.0 % 09/30/16 15:46 Myelocytes % 5.0 % 09/30/16 15:46 Promyelocytes % 0 % 09/30/16 15:46 Blast Cells % 0 % 09/30/16 15:46 Nucleated RBC % Not Reportable 09/30/16 15:46 Seg Neutrophils # Man 16.5 K/mm3 (1.8-7.7) H 09/30/16 15:46 Band Neutrophils # 0.2 K/mm3 09/30/16 15:46 Lymphocytes # (Manual) 0.8 K/mm3 (1.2-5.4) L 09/30/16 15:46 Abs React Lymphs (Man) 0.0 K/mm3 09/30/16 15:46 Monocytes # (Manual) 2.1 K/mm3 (0.0-0.8) H 09/30/16 15:46 Eosinophils # (Manual) 0.0 K/mm3 (0.0-0.4) 09/30/16 15:46 Basophils # (Manual) 0.0 K/mm3 (0.0-0.1) 09/30/16 15:46 Metamyelocytes # 0.2 K/mm3 09/30/16 15:46 Myelocytes # 1.0 K/mm3 09/30/16 15:46 Promyelocytes # 0.0 K/mm3 09/30/16 15:46 Blast Cells # 0.0 K/mm3 09/30/16 15:46 WBC Morphology Not Reportable 09/30/16 15:46 Hypersegmented Neuts Not Reportable 09/30/16 15:46 Hyposegmented Neuts Not Reportable 09/30/16 15:46 Hypogranular Neuts Not Reportable 09/30/16 15:46 Smudge Cells Not Reportable 09/30/16 15:46 Toxic Granulation Not Reportable 09/30/16 15:46 Toxic Vacuolation Not Reportable 09/30/16 15:46 Dohle Bodies Not Reportable 09/30/16 15:46 Pelger-Huet Anomaly Not Reportable 09/30/16 15:46 Mary Rods Not Reportable 09/30/16 15:46 Platelet Estimate Consistent w auto 09/30/16 15:46 Clumped Platelets Not Reportable 09/30/16 15:46 Plt Clumps, EDTA Not Reportable 09/30/16 15:46 Large Platelets Few 09/30/16 15:46 Giant Platelets Not Reportable 09/30/16 15:46 Platelet Satelliting Not Reportable 09/30/16 15:46 Plt Morphology Comment Not Reportable 09/30/16 15:46 RBC Morphology Not Reportable 09/30/16 15:46 Dimorphic RBCs Not Reportable 09/30/16 15:46 Polychromasia Not Reportable 09/30/16 15:46 Hypochromasia Not Reportable 09/30/16 15:46 Poikilocytosis Few 09/30/16 15:46 Anisocytosis 1+ 09/30/16 15:46 Microcytosis Not Reportable 09/30/16 15:46 Macrocytosis Not Reportable 09/30/16 15:46 Spherocytes Not Reportable 09/30/16 15:46 Pappenheimer Bodies Not Reportable 09/30/16 15:46 Sickle Cells Not Reportable 09/30/16 15:46 Target Cells Not Reportable 09/30/16 15:46 Tear Drop Cells Not Reportable 09/30/16 15:46 Ovalocytes Not Reportable 09/30/16 15:46 Helmet Cells Not Reportable 09/30/16 15:46 [place] Bodies Not Reportable 09/30/16 15:46 [place] Rings Not Reportable 09/30/16 15:46 [place] Cells Not Reportable 09/30/16 15:46 Bite Cells Not Reportable 09/30/16 15:46 Crenated Cell Not Reportable 09/30/16 15:46 Elliptocytes Not Reportable 09/30/16 15:46 Acanthocytes (Spur) Not Reportable 09/30/16 15:46 Rouleaux Not Reportable 09/30/16 15:46 Hemoglobin C Crystals Not Reportable 09/30/16 15:46 Schistocytes Not Reportable 09/30/16 15:46 Malaria parasites Not Reportable 09/30/16 15:46 Michael Bodies Not Reportable 09/30/16 15:46 Hem Pathologist Commnt No 09/30/16 15:46 POC ABG pH 6.889 (7.35-7.45) L 09/30/16 21:51 POC ABG pCO2 14.9 (35-45) L 09/30/16 21:51 POC ABG pO2 111 (80-105) H 09/30/16 21:51 POC ABG HCO3 2.8 09/30/16 21:51 POC ABG Total CO2 < 5 09/30/16 21:51 POC ABG O2 Sat 93 09/30/16 21:51 POC ABG Base Excess < -30 09/30/16 21:51 VBG pH 6.809 (7.320-7.420) L* 09/30/16 15:46 FiO2 21 % 09/30/16 21:51 Sodium 152 mmol/L (137-145) H 10/01/16 16:21 Potassium 4.1 mmol/L (3.6-5.0) 10/01/16 16:21 Chloride 118.5 mmol/L (98-107) H 10/01/16 16:21 Carbon Dioxide 13 mmol/L (22-30) L D 10/01/16 16:21 Anion Gap 25 mmol/L 10/01/16 16:21 BUN 39 mg/dL (7-17) H 10/01/16 16:21 Creatinine 2.8 mg/dL (0.7-1.2) H 10/01/16 16:21 Estimated GFR 22 ml/min 10/01/16 16:21 BUN/Creatinine Ratio 13.92 % 10/01/16 16:21 Glucose 204 mg/dL (65-100) H 10/01/16 16:21 POC Glucose 127 (70-105) H 10/02/16 09:13 Osmolality 329 Mosm/kg 10/01/16 21:44 Lactic Acid 5.7 mmol/L (0.7-2.0) H* 09/30/16 20:14 Uric Acid 7.5 mg/dL (3.5-7.6) 10/01/16 21:44 Calcium 6.5 mg/dL (8.4-10.2) L 10/01/16 16:21 Phosphorus 14.5 mg/dL (2.5-4.5) H 09/30/16 17:13 Magnesium 2.6 mg/dL (1.7-2.3) H 09/30/16 17:13 Total Bilirubin < 0.2 mg/dL (0.1-1.2) 09/30/16 15:46 AST 25 units/L (5-40) 09/30/16 15:46 ALT 12 units/L (7-56) 09/30/16 15:46 Alkaline Phosphatase 138 units/L (35-129) H 09/30/16 15:46 Total Creatine Kinase 83 units/L (30-135) 09/30/16 15:46 Total Protein 5.2 g/dL (6.3-8.2) L 09/30/16 15:46 Albumin 2.7 g/dL (3.9-5) L 09/30/16 15:46 Albumin/Globulin Ratio 1.1 % 09/30/16 15:46 TSH 1.120 mlU/mL (0.270-4.200) 09/30/16 15:46 HCG, Qual Negative (Negative) 09/30/16 15:46 Urine Color Yellow (Yellow) 09/30/16 16:00 Urine Turbidity Cloudy (Clear) 09/30/16 16:00 Urine pH 5.0 (5.0-7.0) 09/30/16 16:00 Ur Specific [place] 1.017 (1.003-1.030) 09/30/16 16:00 Urine Protein 30 mg/dl mg/dL (Negative) 09/30/16 16:00 Urine Glucose (UA) >=500 mg/dL (Negative) 09/30/16 16:00 Urine Ketones 20 mg/dL (Negative) 09/30/16 16:00 Urine Blood Sm (Negative) 09/30/16 16:00 Urine Nitrite Neg (Negative) 09/30/16 16:00 Urine Bilirubin Neg (Negative) 09/30/16 16:00 Urine Urobilinogen < 2.0 mg/dL (<2.0) 09/30/16 16:00 Ur Leukocyte Esterase Neg (Negative) 09/30/16 16:00 Urine WBC (Auto) < 1.0 /HPF (0.0-6.0) 09/30/16 16:00 Urine RBC (Auto) 2.0 /HPF (0.0-6.0) 09/30/16 16:00 U Epithel Cells (Auto) 1.0 /HPF (0-13.0) 09/30/16 16:00 Urine Bacteria (Auto) 1+ /HPF (Negative) 09/30/16 16:00 Urine Mucus Few /HPF 09/30/16 16:00 Random Vancomycin 9.3 ug/mL (0-40.0) 10/02/16 04:00 Urine Opiates Screen Presumptive negative 09/30/16 16:00 Urine Methadone Screen Presumptive negative 09/30/16 16:00 Ur Barbiturates Screen Presumptive negative 09/30/16 16:00 Ur Phencyclidine Scrn Presumptive negative 09/30/16 16:00 Ur Amphetamines Screen Presumptive negative 09/30/16 16:00 U Benzodiazepines Scrn Presumptive negative 09/30/16 16:00 Urine Cocaine Screen Presumptive negative 09/30/16 16:00 U Marijuana (THC) Screen Presumptive negative 09/30/16 16:00 Drugs of Abuse Note Disclamer 09/30/16 16:00 Plasma/Serum Alcohol < 0.01 gm% (0-0.07) 09/30/16 15:46
[2016-10-02 10:37] LABS: BUN/Creatinine Ratio 12.4; Calcium 6.1 mg/dL (8.4-10.2); Chloride 110.5 mmol/L (98-107)
--- NOTE | 2016-10-02 11:00 | Consultation ---
History of Present Illness - History of Present Illness Thank you for the consult Pt follwed by LTAC, located within [facility] Very poor historian A/P ASHELY likely with ? CKD renal function declining, hx poor po intake GI loss, at risk for ATN no urgent need for HD IVF hydration labs USG and follow up ordered studies , admitted with 4-5 days of N/V Improving renal function USG shows CKD changes UA mild protein , glycosuria Monitor I/o closely DKA severe improving Hypernatrmeia better Acidosis severe better Anemia mild , needs work up Severe leukocytosis ? infectious ? stress ? dehydration educated about the severity of ASHELY - severe Will follow Past History Past Medical History: diabetes Past Surgical History: No surgical history, Other (reviewed) Social history: single Family history: diabetes, hypertension Medications and Allergies Allergies Allergy/AdvReac Type Severity Reaction Status Date / Time No Known Allergies Allergy Verified 03/26/14 03:17 Home Medications Medication Instructions Recorded Confirmed Last Taken Type Antacid [Alum-Mag Hydrox-Simeth 30 ml PO Q4H PRN #30 oral.liqd 09/28/16 Unknown Rx [id number]/5Ml] Famotidine [Pepcid] 20 mg PO DAILY #30 tablet 09/28/16 09/30/16 Unknown Rx Insulin NPH/Regular [NovoLIN 70/30] 12 unit SUB-Q BIDDIAB 30 Days 09/28/1609/30 Unknown Rx Megestrol [Megace] 20 mg PO TID #90 tablet 09/28/16 09/30/16 Unknown Rx Metoprolol [Lopressor TAB] 25 mg PO BID #60 tablet 09/28/16 09/30/16 Unknown Rx Active Meds: Active Medications Al Hydrox/Mg Hydrox/Simethicone (Alum-Mag Hydrox-Simeth [id number]/5ml) 30 ml PO Q4H PRN PRN Reason: Indigestion Albuterol (Proventil) 2.5 mg IH Q4HRT PRN PRN Reason: Shortness Of Breath Bisacodyl (Dulcolax) 10 mg OK QDAY PRN PRN Reason: constipation unrelieved by MOM Dextrose (D50w (25gm)) 0 ml IV ONCE PRN PRN Reason: Hypoglycemia Heparin Sodium (Porcine) (Heparin) 5,000 unit SUB-Q Q12HR ULI Last Admin: 10/01/16 22:22 Dose: Not Given Insulin Human Regular 100 (units/ Sodium Chloride) 100 mls @ 1 mls/hr IV TITR ULI; 1 UNITS/HR PRN Reason: Protocol Last Admin: 10/02/16 05:56 Dose: 1.5 units/hr, 1.5 mls/hr Levofloxacin/Dextrose (Levaquin 500mg/100ml) 500 mg in 100 mls @ 100 mls/hr IV Q48H ULI Piperacillin Sod/Tazobactam Sod (Zosyn/Ns 2.25 Gm/50ml) 2.25 gm in 50 mls @ 100 mls/hr IV Q8HR ULI Last Admin: 10/02/16 05:57 Dose: 100 mls/hr Norepinephrine (Levophed Drip 4 Mg/Ns 250 Ml) 4 mg in 250 mls @ 7.5 mls/hr IV TITR ULI; 2 MCG/MIN PRN Reason: Protocol Last Titration: 09/30/16 22:37 Dose: 8 mcg/min, 30 mls/hr Dextrose (D5w) 1,000 mls @ 125 mls/hr IV DIRECT [facility] Last Admin: 10/02/16 03:31 Dose: 125 mls/hr Magnesium Hydroxide (Milk Of Magnesia) 30 ml PO Q4H PRN PRN Reason: Constipation Metoprolol Tartrate (Lopressor) 25 mg PO BID [facility] Last Admin: 10/02/16 10:08 Dose: 25 mg Vancomycin HCl (Vancomycin Pharmacy To Dose) 1 each IV PKCONSULT ULI PRN Reason: Protocol Exam - Vital Signs Vital signs: Vital Signs Pulse Resp BP Pulse Ox 92 H 31 H 89/45 99 09/30/16 15:30 09/30/16 15:30 09/30/16 15:30 09/30/16 15:30 Results - Lab Results 09/30/16 15:46 10/02/16 20:54 Most recent lab results Calcium 6.1 mg/dL (8.4-10.2) L 10/02/16 09:49 Phosphorus 14.5 mg/dL (2.5-4.5) H 09/30/16 17:13 Magnesium 2.6 mg/dL (1.7-2.3) H 09/30/16 17:13
[2016-10-02] MEDS ORDERED: KCL 20MEQ/100ML 20 MEQ/100 ML BAG IV ONE (12:00)
[2016-10-02] MEDS ORDERED: D5W/0.45% NACL/KCL 40 MEQ 40 MEQ/1,000 ML BAG IV SCH (13:00)
[2016-10-02] MEDS: HEPARIN SUB-Q SCH ×2 (13:07→21:56)
[2016-10-02] MEDS: REGLAN IV SCH ×2 (13:57→19:00)
--- NOTE | 2016-10-02 16:44 | Ultrasound Report ---
Renal ultrasound: Nephropathy. The right renal length is 10.9 cm and the left is 9.7 cm. Both kidneys are moderately echogenic. No focal mass and no hydronephrosis. There is a Short catheter in a decompressed urinary bladder. Compared to this patient's prior examination on September 23, 2016 there are no significant changes identified. Impression: The findings are consistent with medical renal disease.
[2016-10-02 21:32] LABS: BUN/Creatinine Ratio 11.81; Chloride 117.3 mmol/L (98-107); Potassium 3.7 mmol/L (3.6-5.0)
[2016-10-03] MEDS: NovoLIN R 100 UNITS in NACL 0.9% 99 ML IV SCH ×6 (01:00→07:30)
[2016-10-03] MEDS: REGLAN IV SCH ×5 (01:17→22:54)
[2016-10-03 06:56] LABS: BUN/Creatinine Ratio 11.36; Calcium 6.4 mg/dL (8.4-10.2); Chloride 111.8 mmol/L (98-107); Potassium 4.6 mmol/L (3.6-5.0)
[2016-10-03] MEDS: LOPRESSOR PO SCH (09:14)
[2016-10-03] MEDS: HEPARIN SUB-Q SCH (09:39)
[2016-10-03] MEDS ORDERED: LEVAQUIN 500MG/100ML 500 MG/100 ML BAG IV SCH (10:00)
--- NOTE | 2016-10-03 10:09 | Progress Note ---
Assessment and Plan Assessment and plan: 46 YO Female with HTN, Malnutrition, DM, Medication Noncompliance presents to ED for evaluation. Pt states that she feels sick. Pt is unable to provide history. History taken from family as ED staff. Pt family reports that pt has not been eating, drinking or taking her medications and has become confused today. 1. Sirs due to DKA, infectious etiology ruled out, culture is negative, chest x-ray and UA were negative. 2. DKA An ion gap is improved but not completely closed, patient still has a mild to moderate metabolic acidosis, even though greatly improved. Suspect that acidosis is multifactorial, it is partially due to acute kidney injury and partially due to DKA. We suspect that the DKA components of her acidosis has resolved, we'll try giving her long-acting insulin and try to transition her off the drip to subcutaneous insulin. 3. Dehydration/hypernatremia Continue IV fluids, continue D5 water Continue antiemetics 4. Toxic metabolic encephalopathy Now resolved most likely due to DKA 5. Acute kidney injury Most likely due to vasomotor nephropathy, Nephrology input appreciated, renal functions improving, follow-up renal sono 6. Hypocalcemia corrected Ca is 7, give 2g Calcium gluconate 7. severe malnutrition albumin is 2.7, literacy specialist consult, encourage balanced diet 8. Abdomianl pain, Nausea vomiting continues to have abdominal pain, recheck LFTs, check RUQ suspect that her symptoms are due to DM gastroparesis Critical Care time 32 minutes History Interval history: She continues to have bilious vomiting. Otherwise she feels better, mentation is improved. Denies dysuria, denies cough or sputum production Hospitalist Physical - Physical exam Narrative exam: General: Patient appears well in no distress HEENT: MMM, EOMI cardiac: S1-S2 heard lungs: clear to auscultation, abdomen: soft, nontender, nondistended bowel sounds positive extremities: no edema clubbing or cyanosis Skin: no rash or lesion Neuro: no focal deficit Psych: appropriate behavior and mood, cognition intact - Constitutional Vitals: Temp Pulse Resp BP Pulse Ox 97.3 F L 104 H 22 156/96 98 10/03/16 07:54 10/03/16 09:30 10/03/16 09:30 10/03/16 09:30 10/03/16 09:30 General appearance: Present: severe distress Results - Labs CBC & Chem 7: 09/30/16 15:46 10/03/16 06:00 Labs: Laboratory Last Values WBC 20.9 K/mm3 (4.5-11.0) H 09/30/16 15:46 RBC 3.50 M/mm3 (3.65-5.03) L 09/30/16 15:46 Hgb 9.4 gm/dl (10.1-14.3) L 09/30/16 15:46 Hct 38.3 % (30.3-42.9) 09/30/16 15:46 MCV 109 fl (79-97) H 09/30/16 15:46 MCH 27 pg (28-32) L 09/30/16 15:46 MCHC 25 % (30-34) L 09/30/16 15:46 RDW 20.8 % (13.2-15.2) H 09/30/16 15:46 Plt Count 369 K/mm3 (140-440) 09/30/16 15:46 Add Manual Diff Complete 09/30/16 15:46 Total Counted 100 09/30/16 15:46 Seg Neuts % (Manual) 79.0 % (40.0-70.0) H 09/30/16 15:46 Band Neutrophils % 1.0 % 09/30/16 15:46 Lymphocytes % (Manual) 4.0 % (13.4-35.0) L 09/30/16 15:46 Reactive Lymphs % (Man) 0 % 09/30/16 15:46 Monocytes % (Manual) 10.0 % (0.0-7.3) H 09/30/16 15:46 Eosinophils % (Manual) 0 % (0.0-4.3) 09/30/16 15:46 Basophils % (Manual) 0 % (0.0-1.8) 09/30/16 15:46 Metamyelocytes % 1.0 % 09/30/16 15:46 Myelocytes % 5.0 % 09/30/16 15:46 Promyelocytes % 0 % 09/30/16 15:46 Blast Cells % 0 % 09/30/16 15:46 Nucleated RBC % Not Reportable 09/30/16 15:46 Seg Neutrophils # Man 16.5 K/mm3 (1.8-7.7) H 09/30/16 15:46 Band Neutrophils # 0.2 K/mm3 09/30/16 15:46 Lymphocytes # (Manual) 0.8 K/mm3 (1.2-5.4) L 09/30/16 15:46 Abs React Lymphs (Man) 0.0 K/mm3 09/30/16 15:46 Monocytes # (Manual) 2.1 K/mm3 (0.0-0.8) H 09/30/16 15:46 Eosinophils # (Manual) 0.0 K/mm3 (0.0-0.4) 09/30/16 15:46 Basophils # (Manual) 0.0 K/mm3 (0.0-0.1) 09/30/16 15:46 Metamyelocytes # 0.2 K/mm3 09/30/16 15:46 Myelocytes # 1.0 K/mm3 09/30/16 15:46 Promyelocytes # 0.0 K/mm3 09/30/16 15:46 Blast Cells # 0.0 K/mm3 09/30/16 15:46 WBC Morphology Not Reportable 09/30/16 15:46 Hypersegmented Neuts Not Reportable 09/30/16 15:46 Hyposegmented Neuts Not Reportable 09/30/16 15:46 Hypogranular Neuts Not Reportable 09/30/16 15:46 Smudge Cells Not Reportable 09/30/16 15:46 Toxic Granulation Not Reportable 09/30/16 15:46 Toxic Vacuolation Not Reportable 09/30/16 15:46 Dohle Bodies Not Reportable 09/30/16 15:46 Pelger-Huet Anomaly Not Reportable 09/30/16 15:46 Mary Rods Not Reportable 09/30/16 15:46 Platelet Estimate Consistent w auto 09/30/16 15:46 Clumped Platelets Not Reportable 09/30/16 15:46 Plt Clumps, EDTA Not Reportable 09/30/16 15:46 Large Platelets Few 09/30/16 15:46 Giant Platelets Not Reportable 09/30/16 15:46 Platelet Satelliting Not Reportable 09/30/16 15:46 Plt Morphology Comment Not Reportable 09/30/16 15:46 RBC Morphology Not Reportable 09/30/16 15:46 Dimorphic RBCs Not Reportable 09/30/16 15:46 Polychromasia Not Reportable 09/30/16 15:46 Hypochromasia Not Reportable 09/30/16 15:46 Poikilocytosis Few 09/30/16 15:46 Anisocytosis 1+ 09/30/16 15:46 Microcytosis Not Reportable 09/30/16 15:46 Macrocytosis Not Reportable 09/30/16 15:46 Spherocytes Not Reportable 09/30/16 15:46 Pappenheimer Bodies Not Reportable 09/30/16 15:46 Sickle Cells Not Reportable 09/30/16 15:46 Target Cells Not Reportable 09/30/16 15:46 Tear Drop Cells Not Reportable 09/30/16 15:46 Ovalocytes Not Reportable 09/30/16 15:46 Helmet Cells Not Reportable 09/30/16 15:46 [place] Bodies Not Reportable 09/30/16 15:46 [place] Rings Not Reportable 09/30/16 15:46 [place] Cells Not Reportable 09/30/16 15:46 Bite Cells Not Reportable 09/30/16 15:46 Crenated Cell Not Reportable 09/30/16 15:46 Elliptocytes Not Reportable 09/30/16 15:46 Acanthocytes (Spur) Not Reportable 09/30/16 15:46 Rouleaux Not Reportable 09/30/16 15:46 Hemoglobin C Crystals Not Reportable 09/30/16 15:46 Schistocytes Not Reportable 09/30/16 15:46 Malaria parasites Not Reportable 09/30/16 15:46 Michael Bodies Not Reportable 09/30/16 15:46 Hem Pathologist Commnt No 09/30/16 15:46 POC ABG pH 6.889 (7.35-7.45) L 09/30/16 21:51 POC ABG pCO2 14.9 (35-45) L 09/30/16 21:51 POC ABG pO2 111 (80-105) H 09/30/16 21:51 POC ABG HCO3 2.8 09/30/16 21:51 POC ABG Total CO2 < 5 09/30/16 21:51 POC ABG O2 Sat 93 09/30/16 21:51 POC ABG Base Excess < -30 09/30/16 21:51 VBG pH 6.809 (7.320-7.420) L* 09/30/16 15:46 FiO2 21 % 09/30/16 21:51 Sodium 142 mmol/L (137-145) 10/03/16 06:00 Potassium 4.6 mmol/L (3.6-5.0) D 10/03/16 06:00 Chloride 111.8 mmol/L (98-107) H 10/03/16 06:00 Carbon Dioxide 12 mmol/L (22-30) L 10/03/16 06:00 Anion Gap 23 mmol/L 10/03/16 06:00 BUN 25 mg/dL (7-17) H 10/03/16 06:00 Creatinine 2.2 mg/dL (0.7-1.2) H 10/03/16 06:00 Estimated GFR 29 ml/min 10/03/16 06:00 BUN/Creatinine Ratio 11.36 % 10/03/16 06:00 Glucose 269 mg/dL (65-100) H 10/03/16 06:00 POC Glucose 241 (70-105) H 10/03/16 00:42 Osmolality 329 Mosm/kg 10/01/16 21:44 Lactic Acid 5.7 mmol/L (0.7-2.0) H* 09/30/16 20:14 Uric Acid 7.5 mg/dL (3.5-7.6) 10/01/16 21:44 Calcium 6.4 mg/dL (8.4-10.2) L 10/03/16 06:00 Phosphorus 14.5 mg/dL (2.5-4.5) H 09/30/16 17:13 Magnesium 2.6 mg/dL (1.7-2.3) H 09/30/16 17:13 Total Bilirubin < 0.2 mg/dL (0.1-1.2) 09/30/16 15:46 AST 25 units/L (5-40) 09/30/16 15:46 ALT 12 units/L (7-56) 09/30/16 15:46 Alkaline Phosphatase 138 units/L (35-129) H 09/30/16 15:46 Total Creatine Kinase 83 units/L (30-135) 09/30/16 15:46 Total Protein 5.2 g/dL (6.3-8.2) L 09/30/16 15:46 Albumin 2.7 g/dL (3.9-5) L 09/30/16 15:46 Albumin/Globulin Ratio 1.1 % 09/30/16 15:46 TSH 1.120 mlU/mL (0.270-4.200) 09/30/16 15:46 HCG, Qual Negative (Negative) 09/30/16 15:46 Urine Color Yellow (Yellow) 09/30/16 16:00 Urine Turbidity Cloudy (Clear) 09/30/16 16:00 Urine pH 5.0 (5.0-7.0) 09/30/16 16:00 Ur Specific [place] 1.017 (1.003-1.030) 09/30/16 16:00 Urine Protein 30 mg/dl mg/dL (Negative) 09/30/16 16:00 Urine Glucose (UA) >=500 mg/dL (Negative) 09/30/16 16:00 Urine Ketones 20 mg/dL (Negative) 09/30/16 16:00 Urine Blood Sm (Negative) 09/30/16 16:00 Urine Nitrite Neg (Negative) 09/30/16 16:00 Urine Bilirubin Neg (Negative) 09/30/16 16:00 Urine Urobilinogen < 2.0 mg/dL (<2.0) 09/30/16 16:00 Ur Leukocyte Esterase Neg (Negative) 09/30/16 16:00 Urine WBC (Auto) < 1.0 /HPF (0.0-6.0) 09/30/16 16:00 Urine RBC (Auto) 2.0 /HPF (0.0-6.0) 09/30/16 16:00 U Epithel Cells (Auto) 1.0 /HPF (0-13.0) 09/30/16 16:00 Urine Bacteria (Auto) 1+ /HPF (Negative) 09/30/16 16:00 Urine Mucus Few /HPF 09/30/16 16:00 Random Vancomycin 9.3 ug/mL (0-40.0) 10/02/16 04:00 Urine Opiates Screen Presumptive negative 09/30/16 16:00 Urine Methadone Screen Presumptive negative 09/30/16 16:00 Ur Barbiturates Screen Presumptive negative 09/30/16 16:00 Ur Phencyclidine Scrn Presumptive negative 09/30/16 16:00 Ur Amphetamines Screen Presumptive negative 09/30/16 16:00 U Benzodiazepines Scrn Presumptive negative 09/30/16 16:00 Urine Cocaine Screen Presumptive negative 09/30/16 16:00 U Marijuana (THC) Screen Presumptive negative 09/30/16 16:00 Drugs of Abuse Note Disclamer 09/30/16 16:00 Plasma/Serum Alcohol < 0.01 gm% (0-0.07) 09/30/16 15:46
[2016-10-03] MEDS ORDERED: CALCIUM GLUCONATE 2,000 MG in NACL 0.9% 100 ML IV ONE (16:00)
[2016-10-03] MEDS: ZOFRAN IV PRN (16:52)
[2016-10-03] MEDS: NOVOLOG SUB-Q SCH (17:12)
--- NOTE | 2016-10-03 17:23 | Progress Note ---
Subjective Date of service: 10/03/16 Objective - Vital Signs Vital signs: Vital Signs - 12hr 10/03/16 10/03/16 10/03/16 05:30 05:41 05:51 Temperature Pulse Rate 91 H 91 H 89 Respiratory 18 19 19 Rate Blood Pressure 146/96 146/96 146/96 O2 Sat by Pulse 100 100 100 Oximetry 10/03/16 10/03/16 10/03/16 06:00 06:11 06:21 Temperature Pulse Rate 88 87 86 Respiratory 17 19 17 Rate Blood Pressure 158/98 158/98 158/98 O2 Sat by Pulse 100 100 100 Oximetry 10/03/16 10/03/16 10/03/16 06:30 06:41 06:51 Temperature Pulse Rate 90 95 H 97 H Respiratory 15 18 18 Rate Blood Pressure 151/87 151/87 151/87 O2 Sat by Pulse 100 100 100 Oximetry 10/03/16 10/03/16 10/03/16 07:00 07:11 07:21 Temperature Pulse Rate 99 H 97 H 101 H Respiratory 18 19 18 Rate Blood Pressure 122/77 122/77 122/77 O2 Sat by Pulse 99 100 100 Oximetry 10/03/16 10/03/16 10/03/16 07:30 07:41 07:51 Temperature Pulse Rate 98 H 103 H 99 H Respiratory 17 24 20 Rate Blood Pressure 127/89 127/89 127/89 O2 Sat by Pulse 99 100 100 Oximetry 10/03/16 10/03/16 10/03/16 07:54 08:01 08:11 Temperature 97.3 F L Pulse Rate 100 H 104 H Respiratory 17 20 Rate Blood Pressure 148/97 148/97 O2 Sat by Pulse 100 100 Oximetry 10/03/16 10/03/16 10/03/16 08:21 08:30 08:41 Temperature Pulse Rate 103 H 103 H 101 H Respiratory 18 20 18 Rate Blood Pressure 127/89 145/98 145/98 O2 Sat by Pulse 100 98 100 Oximetry 10/03/16 10/03/16 10/03/16 08:51 09:00 09:11 Temperature Pulse Rate 102 H 103 H 94 H Respiratory 15 18 22 Rate Blood Pressure 145/98 153/105 153/105 O2 Sat by Pulse 100 100 100 Oximetry 10/03/16 10/03/16 10/03/16 09:21 09:30 09:41 Temperature Pulse Rate 106 H 104 H 104 H Respiratory 12 22 21 Rate Blood Pressure 153/105 156/96 156/96 O2 Sat by Pulse 100 98 100 Oximetry 10/03/16 10/03/16 10/03/16 09:51 10:01 10:11 Temperature Pulse Rate 94 H 94 H 91 H Respiratory 20 17 17 Rate Blood Pressure 153/105 132/72 132/72 O2 Sat by Pulse 100 100 100 Oximetry 10/03/16 10/03/16 10/03/16 10:21 10:31 10:41 Temperature Pulse Rate 91 H 96 H 93 H Respiratory 17 16 17 Rate Blood Pressure 156/96 138/78 138/78 O2 Sat by Pulse 100 100 100 Oximetry 10/03/16 10/03/16 10/03/16 10:51 11:01 11:11 Temperature Pulse Rate 96 H 97 H 98 H Respiratory 18 16 18 Rate Blood Pressure 138/78 126/70 126/70 O2 Sat by Pulse 100 99 99 Oximetry 10/03/16 10/03/16 10/03/16 11:21 11:30 12:00 Temperature 98.1 F Pulse Rate 97 H 95 H Respiratory 17 15 Rate Blood Pressure 126/70 140/84 O2 Sat by Pulse 100 100 Oximetry - Lab 09/30/16 15:46 10/03/16 06:00 Most recent lab results Calcium 6.4 mg/dL (8.4-10.2) L 10/03/16 06:00 Phosphorus 14.5 mg/dL (2.5-4.5) H 09/30/16 17:13 Magnesium 2.6 mg/dL (1.7-2.3) H 09/30/16 17:13
[2016-10-03] MEDS ORDERED: NOVOLOG SUB-Q SCH (18:00)
[2016-10-03] MEDS: D50W (25GM) IV PRN (20:12)
[2016-10-03 21:52] LABS: BUN/Creatinine Ratio 11.5; Calcium 7.5 mg/dL (8.4-10.2); Chloride 116.4 mmol/L (98-107); Potassium 3.9 mmol/L (3.6-5.0)
[2016-10-04] MEDS: HEPARIN SUB-Q SCH ×2 (00:30→10:00)
[2016-10-04] MEDS: LOPRESSOR PO SCH ×2 (00:32→10:03)
[2016-10-04 01:32] LABS: BUN/Creatinine Ratio 11.57; Chloride 115.3 mmol/L (98-107); Potassium 4.3 mmol/L (3.6-5.0)
[2016-10-04] MEDS: REGLAN IV SCH ×2 (05:42→10:00)
[2016-10-04 06:45] LABS: Basophils % (Auto) 0.5 % (0.0-1.8); Eosinophils % (Auto) 1.1 % (0.0-4.3); Hematocrit 28.1 % (30.3-42.9); Mean Corpuscular HGB Conc 32 % (30-34); Mean Corpuscular Hemoglobin 27 pg (28-32); Mean Corpuscular Volume 83 fl (79-97); Platelet Count 267 K/mm3 (140-440); Red Blood Count 3.39 M/mm3 (3.65-5.03); Red Cell Distribution Width 17.7 % (13.2-15.2); White Blood Count 11.5 K/mm3 (4.5-11.0)
[2016-10-04 06:51] LABS: BUN/Creatinine Ratio 11.05; Calcium 6.7 mg/dL (8.4-10.2); Chloride 116.5 mmol/L (98-107); Potassium 4.3 mmol/L (3.6-5.0)
[2016-10-04 06:53] LABS: Alanine Aminotransferase 27 units/L (7-56); Albumin 2.3 g/dL (3.9-5); Alkaline Phosphatase 249 units/L (35-129); Total Protein 4.6 g/dL (6.3-8.2)
[2016-10-04 07:01] LABS: Bilirubin,Direct < 0.2 mg/dL (0-0.2); Bilirubin,Indirect 0.1 mg/dL
[2016-10-04 07:31] LABS: B-Hydroxybutyrate 13.7 mmol/L (0.2 - 0.28)
[2016-10-04] MEDS: NOVOLOG SUB-Q SCH ×3 (07:49→17:25)
[2016-10-04] MEDS: NACL 0.45% 1000 ML 1,000 ML IV SCH ×2 (07:50→17:32)
--- NOTE | 2016-10-04 12:14 | Progress Note ---
Assessment and Plan Assessment and plan: 46 YO Female with HTN, Malnutrition, DM, Medication Noncompliance presents to ED for evaluation. Pt states that she feels sick. Pt is unable to provide history. History taken from family as ED staff. Pt family reports that pt has not been eating, drinking or taking her medications and has become confused today. 1. Sirs due to DKA, infectious etiology ruled out, culture is negative, chest x-ray and UA were negative. RUQ sono wnl 2. DKA doing well with transition to sub q insulins, will add long acting insulin and continue premeal insulin 3. Dehydration/hypernatremia continue IVF 4. Toxic metabolic encephalopathy Now resolved most likely due to DKA 5. Acute kidney injury Most likely due to vasomotor nephropathy, Nephrology input appreciated, renal functions improving, renal sono cw medical renal disease 6. Hypocalcemia corrected Ca is 8.1, sp IV calcium and has improved 7. severe malnutrition albumin is 2.3, hematologist oncologist consult, encourage balanced diet 8. Gastroparesis: Abdomianl pain, Nausea vomiting RUQ US wnl suspect that her symptoms are due to DM gastroparesis 9. Upper back cyst- likely infected? consult surgery Critical Care time 32 minutes Tentative transfer to floors later today if she continues to improved History Interval history: c/o Upper back cyst which has now become painful nausea and vomiting is improved. Otherwise she feels better, mentation is improved. Denies dysuria, denies cough or sputum production Hospitalist Physical - Physical exam Narrative exam: General: Patient appears well in no distress HEENT: MMM, EOMI cardiac: S1-S2 heard lungs: clear to auscultation, abdomen: soft, nontender, nondistended bowel sounds positive extremities: no edema clubbing or cyanosis Skin: upper back cyst noted about 3/3cm, very tender and mobile Neuro: no focal deficit Psych: appropriate behavior and mood, cognition intact - Constitutional Vitals: Temp Pulse Resp BP Pulse Ox 97.6 F 88 15 152/71 100 10/04/16 08:00 10/04/16 11:00 10/04/16 11:00 10/04/16 11:00 10/04/16 11:00 General appearance: Present: severe distress Results - Labs CBC & Chem 7: 10/04/16 06:00 10/04/16 14:10 Labs: Laboratory Last Values WBC 11.5 K/mm3 (4.5-11.0) H 10/04/16 06:00 RBC 3.39 M/mm3 (3.65-5.03) L 10/04/16 06:00 Hgb 9.0 gm/dl (10.1-14.3) L 10/04/16 06:00 Hct 28.1 % (30.3-42.9) L 10/04/16 06:00 MCV 83 fl (79-97) 10/04/16 06:00 MCH 27 pg (28-32) L 10/04/16 06:00 MCHC 32 % (30-34) 10/04/16 06:00 RDW 17.7 % (13.2-15.2) H 10/04/16 06:00 Plt Count 267 K/mm3 (140-440) 10/04/16 06:00 Lymph % (Auto) 23.3 % (13.4-35.0) 10/04/16 06:00 [place] % (Auto) 4.9 % (0.0-7.3) 10/04/16 06:00 Eos % (Auto) 1.1 % (0.0-4.3) 10/04/16 06:00 Baso % (Auto) 0.5 % (0.0-1.8) 10/04/16 06:00 Lymph # 2.7 K/mm3 (1.2-5.4) 10/04/16 06:00 [place] # 0.6 K/mm3 (0.0-0.8) 10/04/16 06:00 Eos # 0.1 K/mm3 (0.0-0.4) 10/04/16 06:00 Baso # 0.1 K/mm3 (0.0-0.1) 10/04/16 06:00 Add Manual Diff Complete 09/30/16 15:46 Total Counted 100 09/30/16 15:46 Seg Neutrophils % 70.2 % (40.0-70.0) H 10/04/16 06:00 Seg Neuts % (Manual) 79.0 % (40.0-70.0) H 09/30/16 15:46 Band Neutrophils % 1.0 % 09/30/16 15:46 Lymphocytes % (Manual) 4.0 % (13.4-35.0) L 09/30/16 15:46 Reactive Lymphs % (Man) 0 % 09/30/16 15:46 Monocytes % (Manual) 10.0 % (0.0-7.3) H 09/30/16 15:46 Eosinophils % (Manual) 0 % (0.0-4.3) 09/30/16 15:46 Basophils % (Manual) 0 % (0.0-1.8) 09/30/16 15:46 Metamyelocytes % 1.0 % 09/30/16 15:46 Myelocytes % 5.0 % 09/30/16 15:46 Promyelocytes % 0 % 09/30/16 15:46 Blast Cells % 0 % 09/30/16 15:46 Nucleated RBC % Not Reportable 09/30/16 15:46 Seg Neutrophils # 8.1 K/mm3 (1.8-7.7) H 10/04/16 06:00 Seg Neutrophils # Man 16.5 K/mm3 (1.8-7.7) H 09/30/16 15:46 Band Neutrophils # 0.2 K/mm3 09/30/16 15:46 Lymphocytes # (Manual) 0.8 K/mm3 (1.2-5.4) L 09/30/16 15:46 Abs React Lymphs (Man) 0.0 K/mm3 09/30/16 15:46 Monocytes # (Manual) 2.1 K/mm3 (0.0-0.8) H 09/30/16 15:46 Eosinophils # (Manual) 0.0 K/mm3 (0.0-0.4) 09/30/16 15:46 Basophils # (Manual) 0.0 K/mm3 (0.0-0.1) 09/30/16 15:46 Metamyelocytes # 0.2 K/mm3 09/30/16 15:46 Myelocytes # 1.0 K/mm3 09/30/16 15:46 Promyelocytes # 0.0 K/mm3 09/30/16 15:46 Blast Cells # 0.0 K/mm3 09/30/16 15:46 WBC Morphology Not Reportable 09/30/16 15:46 Hypersegmented Neuts Not Reportable 09/30/16 15:46 Hyposegmented Neuts Not Reportable 09/30/16 15:46 Hypogranular Neuts Not Reportable 09/30/16 15:46 Smudge Cells Not Reportable 09/30/16 15:46 Toxic Granulation Not Reportable 09/30/16 15:46 Toxic Vacuolation Not Reportable 09/30/16 15:46 Dohle Bodies Not Reportable 09/30/16 15:46 Pelger-Huet Anomaly Not Reportable 09/30/16 15:46 Mary Rods Not Reportable 09/30/16 15:46 Platelet Estimate Consistent w auto 09/30/16 15:46 Clumped Platelets Not Reportable 09/30/16 15:46 Plt Clumps, EDTA Not Reportable 09/30/16 15:46 Large Platelets Few 09/30/16 15:46 Giant Platelets Not Reportable 09/30/16 15:46 Platelet Satelliting Not Reportable 09/30/16 15:46 Plt Morphology Comment Not Reportable 09/30/16 15:46 RBC Morphology Not Reportable 09/30/16 15:46 Dimorphic RBCs Not Reportable 09/30/16 15:46 Polychromasia Not Reportable 09/30/16 15:46 Hypochromasia Not Reportable 09/30/16 15:46 Poikilocytosis Few 09/30/16 15:46 Anisocytosis 1+ 09/30/16 15:46 Microcytosis Not Reportable 09/30/16 15:46 Macrocytosis Not Reportable 09/30/16 15:46 Spherocytes Not Reportable 09/30/16 15:46 Pappenheimer Bodies Not Reportable 09/30/16 15:46 Sickle Cells Not Reportable 09/30/16 15:46 Target Cells Not Reportable 09/30/16 15:46 Tear Drop Cells Not Reportable 09/30/16 15:46 Ovalocytes Not Reportable 09/30/16 15:46 Helmet Cells Not Reportable 09/30/16 15:46 [place] Bodies Not Reportable 09/30/16 15:46 [place] Rings Not Reportable 09/30/16 15:46 [place] Cells Not Reportable 09/30/16 15:46 Bite Cells Not Reportable 09/30/16 15:46 Crenated Cell Not Reportable 09/30/16 15:46 Elliptocytes Not Reportable 09/30/16 15:46 Acanthocytes (Spur) Not Reportable 09/30/16 15:46 Rouleaux Not Reportable 09/30/16 15:46 Hemoglobin C Crystals Not Reportable 09/30/16 15:46 Schistocytes Not Reportable 09/30/16 15:46 Malaria parasites Not Reportable 09/30/16 15:46 Michael Bodies Not Reportable 09/30/16 15:46 Hem Pathologist Commnt No 09/30/16 15:46 POC ABG pH 6.889 (7.35-7.45) L 09/30/16 21:51 POC ABG pCO2 14.9 (35-45) L 09/30/16 21:51 POC ABG pO2 111 (80-105) H 09/30/16 21:51 POC ABG HCO3 2.8 09/30/16 21:51 POC ABG Total CO2 < 5 09/30/16 21:51 POC ABG O2 Sat 93 09/30/16 21:51 POC ABG Base Excess < -30 09/30/16 21:51 VBG pH 6.809 (7.320-7.420) L* 09/30/16 15:46 FiO2 21 % 09/30/16 21:51 Sodium 146 mmol/L (137-145) H 10/04/16 06:00 Potassium 4.3 mmol/L (3.6-5.0) 10/04/16 06:00 Chloride 116.5 mmol/L (98-107) H 10/04/16 06:00 Carbon Dioxide 16 mmol/L (22-30) L 10/04/16 06:00 Anion Gap 18 mmol/L 10/04/16 06:00 BUN 21 mg/dL (7-17) H 10/04/16 06:00 Creatinine 1.9 mg/dL (0.7-1.2) H 10/04/16 06:00 Estimated GFR 34 ml/min 10/04/16 06:00 BUN/Creatinine Ratio 11.05 % 10/04/16 06:00 Glucose 163 mg/dL (65-100) H 10/04/16 06:00 POC Glucose 133 (70-105) H 10/04/16 11:38 Osmolality 329 Mosm/kg 10/01/16 21:44 Lactic Acid 5.7 mmol/L (0.7-2.0) H* 09/30/16 20:14 Uric Acid 7.5 mg/dL (3.5-7.6) 10/01/16 21:44 Calcium 6.7 mg/dL (8.4-10.2) L 10/04/16 06:00 Phosphorus 14.5 mg/dL (2.5-4.5) H 09/30/16 17:13 Magnesium 2.6 mg/dL (1.7-2.3) H 09/30/16 17:13 Total Bilirubin 0.30 mg/dL (0.1-1.2) 10/04/16 06:00 Direct Bilirubin < 0.2 mg/dL (0-0.2) 10/04/16 06:00 Indirect Bilirubin 0.1 mg/dL 10/04/16 06:00 AST 32 units/L (5-40) 10/04/16 06:00 ALT 27 units/L (7-56) 10/04/16 06:00 Alkaline Phosphatase 249 units/L (35-129) H 10/04/16 06:00 Total Creatine Kinase 83 units/L (30-135) 09/30/16 15:46 Total Protein 4.6 g/dL (6.3-8.2) L 10/04/16 06:00 Albumin 2.3 g/dL (3.9-5) L 10/04/16 06:00 Albumin/Globulin Ratio 1.0 % 10/04/16 06:00 TSH 1.120 mlU/mL (0.270-4.200) 09/30/16 15:46 HCG, Qual Negative (Negative) 09/30/16 15:46 Urine Color Yellow (Yellow) 09/30/16 16:00 Urine Turbidity Cloudy (Clear) 09/30/16 16:00 Urine pH 5.0 (5.0-7.0) 09/30/16 16:00 Ur Specific [place] 1.017 (1.003-1.030) 09/30/16 16:00 Urine Protein 30 mg/dl mg/dL (Negative) 09/30/16 16:00 Urine Glucose (UA) >=500 mg/dL (Negative) 09/30/16 16:00 Urine Ketones 20 mg/dL (Negative) 09/30/16 16:00 Urine Blood Sm (Negative) 09/30/16 16:00 Urine Nitrite Neg (Negative) 09/30/16 16:00 Urine Bilirubin Neg (Negative) 09/30/16 16:00 Urine Urobilinogen < 2.0 mg/dL (<2.0) 09/30/16 16:00 Ur Leukocyte Esterase Neg (Negative) 09/30/16 16:00 Urine WBC (Auto) < 1.0 /HPF (0.0-6.0) 09/30/16 16:00 Urine RBC (Auto) 2.0 /HPF (0.0-6.0) 09/30/16 16:00 U Epithel Cells (Auto) 1.0 /HPF (0-13.0) 09/30/16 16:00 Urine Bacteria (Auto) 1+ /HPF (Negative) 09/30/16 16:00 Urine Mucus Few /HPF 09/30/16 16:00 Random Vancomycin 9.3 ug/mL (0-40.0) 10/02/16 04:00 Urine Opiates Screen Presumptive negative 09/30/16 16:00 Urine Methadone Screen Presumptive negative 09/30/16 16:00 Ur Barbiturates Screen Presumptive negative 09/30/16 16:00 Ur Phencyclidine Scrn Presumptive negative 09/30/16 16:00 Ur Amphetamines Screen Presumptive negative 09/30/16 16:00 U Benzodiazepines Scrn Presumptive negative 09/30/16 16:00 Urine Cocaine Screen Presumptive negative 09/30/16 16:00 U Marijuana (THC) Screen Presumptive negative 09/30/16 16:00 Drugs of Abuse Note Disclamer 09/30/16 16:00 Plasma/Serum Alcohol < 0.01 gm% (0-0.07) 09/30/16 15:46
[2016-10-04] MEDS ORDERED: CALCIUM GLUCONATE 1,000 MG in NACL 0.9% 100 ML IV ONE (12:15)
--- NOTE | 2016-10-04 13:17 | Ultrasound Report ---
RIGHT UPPER QUADRANT ABDOMINAL ULTRASOUND: 09/30/16 16:52:00 CLINICAL: Abdominal pain. FINDINGS: High-resolution ultrasound demonstrated a normal liver. Normal hepatic vasculature and inferior vena cava. Normally distended gallbladder with no stones. The gall bladder wall measures 1.3 mm in thickness. Normal intrahepatic and extra hepatic bile ducts. The common bile duct measures 5.2 mm diameter. The pancreas was well imaged and normal. Normal upper abdominal aorta. The right kidney is slightly more echogenic than normal and is otherwise normal. It measures 10.4 x 5.2 x 5.3cm. No ascites or mass. IMPRESSION: 1. No cholelithiasis. 2. Normal liver. 3. Medical renal disease.
--- NOTE | 2016-10-04 13:44 | Progress Note ---
Assessment and Plan Assessment: * Acute kidney injury secondary to prerenal azotemia vs underlying CKD * DKA * Hypernatremia, mild * Hypertension * Anemia Plan: * Continue IVF for hydration - will add bicarb * Tight glycemic control * Adjust medications for renal function * Avoid potential nephrotoxins * AM labs Subjective Date of service: 10/04/16 Interval history: Patient denies nausea/vomiting today. Tolerating po intake. Objective - Vital Signs Vital signs: Vital Signs - 12hr 10/04/16 10/04/16 10/04/16 01:51 02:00 02:11 Temperature Pulse Rate 101 H 99 H 95 H Respiratory 16 15 15 Rate Blood Pressure 159/92 144/93 144/93 O2 Sat by Pulse 100 100 100 Oximetry 10/04/16 10/04/16 10/04/16 02:21 02:30 02:41 Temperature Pulse Rate 101 H 96 H 100 H Respiratory 17 17 17 Rate Blood Pressure 144/93 158/106 158/106 O2 Sat by Pulse 100 100 100 Oximetry 10/04/16 10/04/16 10/04/16 02:51 03:01 03:11 Temperature Pulse Rate 98 H 90 96 H Respiratory 15 12 15 Rate Blood Pressure 158/106 166/109 166/109 O2 Sat by Pulse 100 100 100 Oximetry 10/04/16 10/04/16 10/04/16 03:21 03:30 03:41 Temperature Pulse Rate 97 H 95 H 101 H Respiratory 15 16 15 Rate Blood Pressure 166/109 153/93 153/93 O2 Sat by Pulse 100 99 100 Oximetry 10/04/16 10/04/16 10/04/16 03:51 04:00 04:11 Temperature 97.8 F Pulse Rate 102 H 97 H 98 H Respiratory 16 16 21 Rate Blood Pressure 153/93 141/90 141/90 O2 Sat by Pulse 100 100 100 Oximetry 10/04/16 10/04/16 10/04/16 04:21 04:30 04:41 Temperature Pulse Rate 93 H 91 H 93 H Respiratory 15 14 15 Rate Blood Pressure 141/90 145/87 145/87 O2 Sat by Pulse 100 100 100 Oximetry 10/04/16 10/04/16 10/04/16 04:51 05:01 05:11 Temperature Pulse Rate 99 H 96 H 90 Respiratory 16 13 14 Rate Blood Pressure 145/87 151/90 151/90 O2 Sat by Pulse 100 100 100 Oximetry 10/04/16 10/04/16 10/04/16 05:21 05:30 05:41 Temperature Pulse Rate 92 H 91 H 87 Respiratory 16 12 14 Rate Blood Pressure 151/90 159/93 159/93 O2 Sat by Pulse 100 100 100 Oximetry 10/04/16 10/04/16 10/04/16 05:51 06:00 06:11 Temperature Pulse Rate 85 84 86 Respiratory 12 10 L 14 Rate Blood Pressure 159/93 147/94 147/94 O2 Sat by Pulse 100 100 100 Oximetry 10/04/16 10/04/16 10/04/16 06:21 06:30 06:41 Temperature Pulse Rate 75 83 77 Respiratory 15 13 11 L Rate Blood Pressure 147/94 152/100 152/100 O2 Sat by Pulse 100 100 100 Oximetry 10/04/16 10/04/16 10/04/16 06:51 07:00 07:11 Temperature Pulse Rate 79 88 82 Respiratory 14 12 16 Rate Blood Pressure 152/100 142/89 142/89 O2 Sat by Pulse 100 100 100 Oximetry 10/04/16 10/04/16 10/04/16 07:21 07:30 07:41 Temperature Pulse Rate 88 97 H 88 Respiratory 14 13 13 Rate Blood Pressure 142/89 155/86 155/86 O2 Sat by Pulse 100 100 100 Oximetry 10/04/16 10/04/16 10/04/16 07:51 08:00 08:11 Temperature 97.6 F Pulse Rate 93 H 80 84 Respiratory 16 13 13 Rate Blood Pressure 155/86 159/92 159/92 O2 Sat by Pulse 100 100 100 Oximetry 10/04/16 10/04/16 10/04/16 08:20 08:30 08:41 Temperature Pulse Rate 92 H 83 97 H Respiratory 14 12 19 Rate Blood Pressure 159/92 167/98 167/98 O2 Sat by Pulse 100 100 100 Oximetry 10/04/16 10/04/16 10/04/16 08:51 09:00 09:11 Temperature Pulse Rate 99 H 96 H 104 H Respiratory 16 13 15 Rate Blood Pressure 167/98 152/105 152/105 O2 Sat by Pulse 99 100 99 Oximetry 10/04/16 10/04/16 10/04/16 09:21 09:30 09:41 Temperature Pulse Rate 98 H 96 H 95 H Respiratory 15 15 14 Rate Blood Pressure 152/105 145/95 145/95 O2 Sat by Pulse 100 100 100 Oximetry 10/04/16 10/04/16 10/04/16 09:51 10:00 10:11 Temperature Pulse Rate 97 H 90 93 H Respiratory 14 14 12 Rate Blood Pressure 145/95 152/96 152/96 O2 Sat by Pulse 100 100 100 Oximetry 10/04/16 10/04/16 10/04/16 10:21 10:31 10:41 Temperature Pulse Rate 96 H 91 H 89 Respiratory 18 15 15 Rate Blood Pressure 152/96 156/99 156/99 O2 Sat by Pulse 100 100 100 Oximetry 10/04/16 10/04/16 10/04/16 10:51 11:00 11:11 Temperature Pulse Rate 83 88 88 Respiratory 14 15 13 Rate Blood Pressure 156/99 152/71 152/71 O2 Sat by Pulse 100 100 100 Oximetry 10/04/16 10/04/16 10/04/16 11:21 11:30 11:41 Temperature Pulse Rate 91 H 93 H 99 H Respiratory 15 11 L 14 Rate Blood Pressure 152/71 148/85 148/85 O2 Sat by Pulse 100 100 97 Oximetry 10/04/16 10/04/16 10/04/16 11:51 12:00 12:11 Temperature Pulse Rate 93 H 93 H 97 H Respiratory 15 14 15 Rate Blood Pressure 148/85 137/76 137/76 O2 Sat by Pulse 99 95 100 Oximetry 10/04/16 10/04/16 10/04/16 12:21 12:30 12:41 Temperature Pulse Rate 99 H 90 95 H Respiratory 17 14 16 Rate Blood Pressure 137/76 142/75 142/75 O2 Sat by Pulse 100 97 100 Oximetry 10/04/16 10/04/16 10/04/16 12:51 13:00 13:11 Temperature Pulse Rate 94 H 93 H 95 H Respiratory 14 14 15 Rate Blood Pressure 142/75 132/75 132/75 O2 Sat by Pulse 100 96 100 Oximetry 10/04/16 10/04/16 13:21 13:35 Temperature 97.5 F L Pulse Rate 96 H Respiratory 15 Rate Blood Pressure 132/75 O2 Sat by Pulse 100 Oximetry - General Appearance General appearance: well-developed, well-nourished EENT: ATNC Respiratory: Present: Clear to Ascultation Cardiology: regular, S1S2 Gastrointestinal: normal, no tenderness, no distended Integumentary: no rash Musculoskeletal: other (no edema) Psychiatric: cooperative - Lab 10/04/16 06:00 10/04/16 14:10 Most recent lab results Calcium 6.7 mg/dL (8.4-10.2) L 10/04/16 06:00 Phosphorus 14.5 mg/dL (2.5-4.5) H 09/30/16 17:13 Magnesium 2.6 mg/dL (1.7-2.3) H 09/30/16 17:13
[2016-10-04 14:38] LABS: BUN/Creatinine Ratio 12.35; Chloride 111.8 mmol/L (98-107); Potassium 4.5 mmol/L (3.6-5.0)
[2016-10-04] MEDS ORDERED: NOVOLOG SUB-Q ONE (16:49)
[2016-10-04 17:50] LABS: Albumin 2.5 g/dL (3.8-4.8); Gamma Globulin 0.5 g/dL (0.8-1.7)
[2016-10-04] MEDS: ZOFRAN IV PRN (18:09)
--- NOTE | 2016-10-04 19:12 | Consultation ---
History of Present Illness Consult date: 10/04/16 Reason for consult: other (lump on the upper back.) Chief complaint: Lump of the upper back. - History of present illness History of present illness: 46 years old female admitted to the hospital with DKA. Patient with history of diabetes and hypertension. Patient complained of a nodule in the upper back. We are consulted to about this condition. Past History Past Medical History: diabetes, hypertension Past Surgical History: No surgical history, Other (reviewed) Social history: single Family history: diabetes, hypertension Medications and Allergies Allergies Allergy/AdvReac Type Severity Reaction Status Date / Time No Known Allergies Allergy Verified 03/26/14 03:17 Home Medications Medication Instructions Recorded Confirmed Last Taken Type Antacid [Alum-Mag Hydrox-Simeth 30 ml PO Q4H PRN #30 oral.liqd 09/28/16 Unknown Rx [id number]/5Ml] Famotidine [Pepcid] 20 mg PO DAILY #30 tablet 09/28/16 09/30/16 Unknown Rx Insulin NPH/Regular [NovoLIN 70/30] 12 unit SUB-Q BIDDIAB 30 Days 09/28/1609/30 Unknown Rx Megestrol [Megace] 20 mg PO TID #90 tablet 09/28/16 09/30/16 Unknown Rx Metoprolol [Lopressor TAB] 25 mg PO BID #60 tablet 09/28/16 09/30/16 Unknown Rx Active Meds: Active Medications Al Hydrox/Mg Hydrox/Simethicone (Alum-Mag Hydrox-Simeth 017-431-39xw/5ml) 30 ml PO Q4H PRN PRN Reason: Indigestion Albuterol (Proventil) 2.5 mg IH Q4HRT PRN PRN Reason: Shortness Of Breath Bisacodyl (Dulcolax) 10 mg OK QDAY PRN PRN Reason: constipation unrelieved by MOM Dextrose (D50w (25gm)) 0 ml IV ONCE PRN PRN Reason: Hypoglycemia Dextrose (D50w (25gm)) 50 ml IV PRN PRN PRN Reason: Hypoglycemia Last Admin: 10/03/16 20:12 Dose: 25 ml Heparin Sodium (Porcine) (Heparin) 5,000 unit SUB-Q Q12HR ULI Last Admin: 10/04/16 10:00 Dose: Not Given Hydralazine HCl (Apresoline) 10 mg IV Q4H PRN PRN Reason: BP >160/100 Norepinephrine (Levophed Drip 4 Mg/Ns 250 Ml) 4 mg in 250 mls @ 7.5 mls/hr IV TITR ULI; 2 MCG/MIN PRN Reason: Protocol Last Titration: 09/30/16 22:37 Dose: 8 mcg/min, 30 mls/hr Sodium Chloride (Nacl 0.45% 1000 Ml) 1,000 mls @ 100 mls/hr IV DIRECT ULI Last Admin: 10/04/16 17:32 Dose: 100 mls/hr Insulin Aspart (Novolog) 0 units SUB-Q AC ULI PRN Reason: Protocol Last Admin: 10/04/16 17:25 Dose: Not Given Insulin Aspart (Novolog) 5 units SUB-Q AC ULI Insulin Detemir (Levemir) 15 units SUB-Q QHS ULI Magnesium Hydroxide (Milk Of Magnesia) 30 ml PO Q4H PRN PRN Reason: Constipation Metoprolol Tartrate (Lopressor) 25 mg PO BID [facility] Last Admin: 10/04/16 10:03 Dose: 25 mg Ondansetron HCl (Zofran) 4 mg IV Q4H PRN PRN Reason: Nausea And Vomiting Last Admin: 10/04/16 18:09 Dose: 4 mg Review of Systems All systems: negative (present complaint.) Exam Vital Signs Pulse Resp BP Pulse Ox 92 H 31 H 89/45 99 09/30/16 15:30 09/30/16 15:30 09/30/16 15:30 09/30/16 15:30 - General physical appearance Positive: well developed, well nourished, no distress - Eyes Positive: PERRL, normal occular movement - ENT Positive: normal pinna, normal nares, normal mucosa, no hearing loss, no congestion - Neck Positive: no masses, no bruits, trachea midline, no venous distension - Respiratory Positive: normal expansion, normal respiratory effort, clear to auscultation - Cardiovascular Rhythm: regular Heart Sounds: Present: S1 & S2 - Extremities Extremities: no ischemia, pulses symmetrical, No edema - Breasts Breasts: deferred - Abdomen Abdomen: Present: soft, bowel sounds normal. Absent: tender, distended - Genitourinary Female Genitourinary: deferred - Integumentary other (epidermal inclusion cyst that upper mid back.No redness, swelling or tenderness.) - Musculoskeletal normal gait, normal posture Results - Labs 10/04/16 06:00 10/04/16 14:10 Abnormal lab results 10/01/16 10/03/16 10/03/16 Range/Units 21:44 17:01 18:00 WBC (4.5-11.0) K/mm3 RBC (3.65-5.03) M/mm3 Hgb (10.1-14.3) gm/dl Hct (30.3-42.9) % MCH (28-32) pg RDW (13.2-15.2) % Seg Neutrophils % (40.0-70.0) % Seg Neutrophils # (1.8-7.7) K/mm3 Sodium 148 H (137-145) mmol/L Chloride 116.4 H (98-107) mmol/L Carbon Dioxide 16 L (22-30) mmol/L BUN 23 H (7-17) mg/dL Creatinine 2.0 H (0.7-1.2) mg/dL Glucose 52 L (65-100) mg/dL POC Glucose 318 H (70-105) Calcium 7.5 L D (8.4-10.2) mg/dL Alkaline Phosphatase (35-129) units/L Serum Total Protein 4.7 L (6.1-8.1) g/dL Total Protein (6.3-8.2) g/dL Albumin 2.5 L (3.8-4.8) g/dL Gamma Globulins 0.5 L (0.8-1.7) g/dL PEP Interpretation see below H 10/03/16 10/03/16 10/04/16 Range/Units 19:46 19:55 00:30 WBC (4.5-11.0) K/mm3 RBC (3.65-5.03) M/mm3 Hgb (10.1-14.3) gm/dl Hct (30.3-42.9) % MCH (28-32) pg RDW (13.2-15.2) % Seg Neutrophils % (40.0-70.0) % Seg Neutrophils # (1.8-7.7) K/mm3 Sodium 147 H (137-145) mmol/L Chloride 115.3 H (98-107) mmol/L Carbon Dioxide 15 L (22-30) mmol/L BUN 22 H (7-17) mg/dL Creatinine 1.9 H (0.7-1.2) mg/dL Glucose 182 H (65-100) mg/dL POC Glucose 44 L 44 L (70-105) Calcium 7.0 L (8.4-10.2) mg/dL Alkaline Phosphatase (35-129) units/L Serum Total Protein (6.1-8.1) g/dL Total Protein (6.3-8.2) g/dL Albumin (3.8-4.8) g/dL Gamma Globulins (0.8-1.7) g/dL PEP Interpretation 10/04/16 10/04/16 10/04/16 Range/Units 00:41 05:52 06:00 WBC (4.5-11.0) K/mm3 RBC (3.65-5.03) M/mm3 Hgb (10.1-14.3) gm/dl Hct (30.3-42.9) % MCH (28-32) pg RDW (13.2-15.2) % Seg Neutrophils % (40.0-70.0) % Seg Neutrophils # (1.8-7.7) K/mm3 Sodium 146 H (137-145) mmol/L Chloride 116.5 H (98-107) mmol/L Carbon Dioxide 16 L (22-30) mmol/L BUN 21 H (7-17) mg/dL Creatinine 1.9 H (0.7-1.2) mg/dL Glucose 163 H (65-100) mg/dL POC Glucose 198 H 173 H (70-105) Calcium 6.7 L (8.4-10.2) mg/dL Alkaline Phosphatase (35-129) units/L Serum Total Protein (6.1-8.1) g/dL Total Protein (6.3-8.2) g/dL Albumin (3.8-4.8) g/dL Gamma Globulins (0.8-1.7) g/dL PEP Interpretation 10/04/16 10/04/16 10/04/16 Range/Units 06:00 06:00 07:38 WBC 11.5 H (4.5-11.0) K/mm3 RBC 3.39 L (3.65-5.03) M/mm3 Hgb 9.0 L (10.1-14.3) gm/dl Hct 28.1 L (30.3-42.9) % MCH 27 L (28-32) pg RDW 17.7 H (13.2-15.2) % Seg Neutrophils % 70.2 H (40.0-70.0) % Seg Neutrophils # 8.1 H (1.8-7.7) K/mm3 Sodium (137-145) mmol/L Chloride (98-107) mmol/L Carbon Dioxide (22-30) mmol/L BUN (7-17) mg/dL Creatinine (0.7-1.2) mg/dL Glucose (65-100) mg/dL POC Glucose 266 H (70-105) Calcium (8.4-10.2) mg/dL Alkaline Phosphatase 249 H (35-129) units/L Serum Total Protein (6.1-8.1) g/dL Total Protein 4.6 L (6.3-8.2) g/dL Albumin 2.3 L (3.8-4.8) g/dL Gamma Globulins (0.8-1.7) g/dL PEP Interpretation 10/04/16 10/04/16 10/04/16 Range/Units 11:38 14:10 16:20 WBC (4.5-11.0) K/mm3 RBC (3.65-5.03) M/mm3 Hgb (10.1-14.3) gm/dl Hct (30.3-42.9) % MCH (28-32) pg RDW (13.2-15.2) % Seg Neutrophils % (40.0-70.0) % Seg Neutrophils # (1.8-7.7) K/mm3 Sodium (137-145) mmol/L Chloride 111.8 H (98-107) mmol/L Carbon Dioxide 12 L (22-30) mmol/L BUN 21 H (7-17) mg/dL Creatinine 1.7 H (0.7-1.2) mg/dL Glucose 311 H (65-100) mg/dL POC Glucose 133 H 475 H (70-105) Calcium 7.0 L (8.4-10.2) mg/dL Alkaline Phosphatase (35-129) units/L Serum Total Protein (6.1-8.1) g/dL Total Protein (6.3-8.2) g/dL Albumin (3.8-4.8) g/dL Gamma Globulins (0.8-1.7) g/dL PEP Interpretation Diabetes panel 10/01/16 10/03/16 10/04/16 Range/Units 21:44 18:00 00:30 Sodium 148 H 147 H (137-145) mmol/L Potassium 3.9 4.3 (3.6-5.0) mmol/L Chloride 116.4 H 115.3 H (98-107) mmol/L Carbon Dioxide 16 L 15 L (22-30) mmol/L BUN 23 H 22 H (7-17) mg/dL Creatinine 2.0 H 1.9 H (0.7-1.2) mg/dL Glucose 52 L 182 H (65-100) mg/dL Calcium 7.5 L D 7.0 L (8.4-10.2) mg/dL AST (5-40) units/L ALT (7-56) units/L Alkaline Phosphatase (35-129) units/L Total Protein (6.3-8.2) g/dL Albumin 2.5 L (3.8-4.8) g/dL 10/04/16 10/04/16 10/04/16 Range/Units 06:00 06:00 14:10 Sodium 146 H 143 (137-145) mmol/L Potassium 4.3 4.5 (3.6-5.0) mmol/L Chloride 116.5 H 111.8 H (98-107) mmol/L Carbon Dioxide 16 L 12 L (22-30) mmol/L BUN 21 H 21 H (7-17) mg/dL Creatinine 1.9 H 1.7 H (0.7-1.2) mg/dL Glucose 163 H 311 H (65-100) mg/dL Calcium 6.7 L 7.0 L (8.4-10.2) mg/dL AST 32 (5-40) units/L ALT 27 (7-56) units/L Alkaline Phosphatase 249 H (35-129) units/L Total Protein 4.6 L (6.3-8.2) g/dL Albumin 2.3 L (3.8-4.8) g/dL Calcium panel 10/01/16 10/03/16 10/04/16 Range/Units 21:44 18:00 00:30 Calcium 7.5 L D 7.0 L (8.4-10.2) mg/dL Albumin 2.5 L (3.8-4.8) g/dL 10/04/16 10/04/16 10/04/16 Range/Units 06:00 06:00 14:10 Calcium 6.7 L 7.0 L (8.4-10.2) mg/dL Albumin 2.3 L (3.8-4.8) g/dL Pituitary panel 10/03/16 10/04/16 10/04/16 Range/Units 18:00 00:30 06:00 Sodium 148 H 147 H 146 H (137-145) mmol/L Potassium 3.9 4.3 4.3 (3.6-5.0) mmol/L Chloride 116.4 H 115.3 H 116.5 H (98-107) mmol/L Carbon Dioxide 16 L 15 L 16 L (22-30) mmol/L BUN 23 H 22 H 21 H (7-17) mg/dL Creatinine 2.0 H 1.9 H 1.9 H (0.7-1.2) mg/dL Glucose 52 L 182 H 163 H (65-100) mg/dL Calcium 7.5 L D 7.0 L 6.7 L (8.4-10.2) mg/dL 10/04/16 Range/Units 14:10 Sodium 143 (137-145) mmol/L Potassium 4.5 (3.6-5.0) mmol/L Chloride 111.8 H (98-107) mmol/L Carbon Dioxide 12 L (22-30) mmol/L BUN 21 H (7-17) mg/dL Creatinine 1.7 H (0.7-1.2) mg/dL Glucose 311 H (65-100) mg/dL Calcium 7.0 L (8.4-10.2) mg/dL Adrenal panel 10/01/16 10/03/16 10/04/16 Range/Units 21:44 18:00 00:30 Sodium 148 H 147 H (137-145) mmol/L Potassium 3.9 4.3 (3.6-5.0) mmol/L Chloride 116.4 H 115.3 H (98-107) mmol/L Carbon Dioxide 16 L 15 L (22-30) mmol/L BUN 23 H 22 H (7-17) mg/dL Creatinine 2.0 H 1.9 H (0.7-1.2) mg/dL Glucose 52 L 182 H (65-100) mg/dL Calcium 7.5 L D 7.0 L (8.4-10.2) mg/dL Total Bilirubin (0.1-1.2) mg/dL AST (5-40) units/L ALT (7-56) units/L Alkaline Phosphatase (35-129) units/L Total Protein (6.3-8.2) g/dL Albumin 2.5 L (3.8-4.8) g/dL 10/04/16 10/04/16 10/04/16 Range/Units 06:00 06:00 14:10 Sodium 146 H 143 (137-145) mmol/L Potassium 4.3 4.5 (3.6-5.0) mmol/L Chloride 116.5 H 111.8 H (98-107) mmol/L Carbon Dioxide 16 L 12 L (22-30) mmol/L BUN 21 H 21 H (7-17) mg/dL Creatinine 1.9 H 1.7 H (0.7-1.2) mg/dL Glucose 163 H 311 H (65-100) mg/dL Calcium 6.7 L 7.0 L (8.4-10.2) mg/dL Total Bilirubin 0.30 (0.1-1.2) mg/dL AST 32 (5-40) units/L ALT 27 (7-56) units/L Alkaline Phosphatase 249 H (35-129) units/L Total Protein 4.6 L (6.3-8.2) g/dL Albumin 2.3 L (3.8-4.8) g/dL Assessment and Plan Impression: #1. Epidermal inclusion cyst in the back with no signs of infection. #2. Diabetes mellitus. #3. Hypertension. X Recommendations: The patient was explained what an epidermal inclusion cyst was and I also explained to her that this can be excised as an outpatient. I asked her that after discharge from hospital to call my office for an appointment to set this up.
[2016-10-04] MEDS ORDERED: LEVEMIR SUB-Q SCH (22:00)
[2016-10-05] MEDS: LOPRESSOR PO SCH ×3 (00:26→22:32)
[2016-10-05] MEDS: LEVEMIR SUB-Q SCH ×2 (00:27→22:33)
[2016-10-05] MEDS: HEPARIN SUB-Q SCH ×5 (00:28→22:31)
[2016-10-05] MEDS: NACL 0.45% 1000 ML 1,000 ML with SODIUM BICARBONATE 75 MEQ IV SCH (04:19)
[2016-10-05 08:06] LABS: BUN/Creatinine Ratio 12.35; Calcium 6.6 mg/dL (8.4-10.2); Chloride 112.5 mmol/L (98-107)
[2016-10-05] MEDS: NOVOLOG SUB-Q SCH ×6 (08:20→17:29)
--- NOTE | 2016-10-05 08:36 | Discharge Summary ---
Providers - Providers Date of Admission: 09/30/16 16:52 Attending physician: BOUCHRA SHERIFF MD 10/01/16 15:26 Consult to Physician [CONS] Routine Consulting Provider: RAMSES WAYNE Reason For Exam: ASEHLY Place consult to:: rupinder lawson neph. Notified:: office Phone number called:: [phone] Was contact made?: Yes If yes, spoke with:: ellen Time called:: 15:43 Comment:: dr de to return call 10/03/16 15:10 Consult to Dietitian/Nutrition [CONS] Routine Physician Instructions: Reason For Exam: Reason for Consult: Malnutrition 10/04/16 16:53 Consult to Physician [CONS] Routine Consulting Provider: CORONA GARDNER Reason For Exam: upper back infected cyst Place consult to:: DR. GARDNER Notified:: [facility] Phone number called:: [phone] Was contact made?: Yes If yes, spoke with:: PURVI Time called:: 05:10 Comment:: DR. 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 Pt states that she feels sick. Pt is unable to provide history. History taken from family as ED staff. Pt family reports that pt has not been eating, drinking or taking her medications and has become confused today. 1. Sirs due to DKA, infectious etiology ruled out, culture is negative, chest x-ray and UA were negative. RUQ sono wnl 2. DKA doing well with transition to sub q insulins, will add long acting insulin and continue premeal insulin 3. Dehydration/hypernatremia continue IVF 4. Toxic metabolic encephalopathy Now resolved most likely due to DKA 5. Acute kidney injury Most likely due to vasomotor nephropathy, Nephrology input appreciated, renal functions improving, renal sono cw medical renal disease 6. Hypocalcemia corrected Ca is 8.1, sp IV calcium and has improved 7. severe malnutrition albumin is 2.3, family and marriage counsellor consult, encourage balanced diet 8. Gastroparesis: Abdomianl pain, Nausea vomiting RUQ US wnl suspect that her symptoms are due to DM gastroparesis 9. Upper back cyst- likely infected? consult surgery Disposition: DISCHARGED TO HOME OR SELFCARE Time spent for discharge: 35 minutes Core Measure Documentation - Palliative Care Palliative Care/ Comfort Measures: Not Applicable - Core Measures Any of the following diagnoses?: none Exam - Physical Exam Narrative exam: General: Patient appears well in no distress HEENT: MMM, EOMI cardiac: S1-S2 heard lungs: clear to auscultation, abdomen: soft, nontender, nondistended bowel sounds positive extremities: no edema clubbing or cyanosis Skin: upper back cyst noted about 3/3cm, very tender and mobile Neuro: no focal deficit Psych: appropriate behavior and mood, cognition intact - Constitutional Vitals: Temp Pulse Resp BP Pulse Ox 98.5 F 80 18 150/80 100 10/04/16 22:55 10/05/16 00:26 10/04/16 22:55 10/05/16 00:26 10/04/16 22:55 Plan Follow up with: PRIMARY MD JOURDAN [Primary Care Provider] - 3-5 Days CORONA GARDNER MD [Staff Physician] - 7 Days Prescriptions: Ondansetron [Zofran Odt] 4 mg PO Q8H PRN #30 tab.rapdis PRN Reason: Nausea Promethazine [Phenergan SUPPOS] 25 mg MA Q6HR PRN #30 supp.rect PRN Reason: Nausea
[2016-10-05] MEDS: ZOFRAN IV PRN (11:31)
[2016-10-05] MEDS ORDERED: PHENERGAN PR PRN (12:34)
--- NOTE | 2016-10-05 12:35 | Progress Note ---
Assessment and Plan Assessment and plan: 46 YO Female with HTN, Malnutrition, DM, Medication Noncompliance presents to ED for evaluation. Pt states that she feels sick. Pt is unable to provide history. History taken from family as ED staff. Pt family reports that pt has not been eating, drinking or taking her medications and has become confused today. 1. SIRS due to DKA, infectious etiology ruled out, culture is negative, chest x-ray and UA were negative. RUQ sono wnl 2. DM DKA has resolved continue insulins 3. Dehydration/hypernatremia continue IVF, Na is now wnl 4. Toxic metabolic encephalopathy Now resolved most likely due to DKA 5. Acute kidney injury Most likely due to vasomotor nephropathy, Nephrology input appreciated, renal functions improving, renal sono cw medical renal disease 6. Hypocalcemia corrected and has improved 7. severe malnutrition albumin is 2.3, garbage collector supervisor consulted, encourage balanced diet 8. Gastroparesis: Abdomianl pain, Nausea vomiting RUQ US wnl suspect that her symptoms are due to DM gastroparesis still not improving, Gi consulted 9. Upper back cyst- surgery input appreciated, epidermal inclusion cyst, not infected can fup as outpatient for excision History Interval history: still c/o nausea and vomiting Hospitalist Physical - Physical exam Narrative exam: General: Patient appears well in no distress HEENT: MMM, EOMI cardiac: S1-S2 heard lungs: clear to auscultation, abdomen: soft, nontender, nondistended bowel sounds positive extremities: no edema clubbing or cyanosis Skin: upper back cyst noted about 3/3cm, very mobile Neuro: no focal deficit Psych: appropriate behavior and mood, cognition intact - Constitutional Vitals: Temp Pulse Resp BP Pulse Ox 97.9 F 87 18 136/60 100 10/05/16 07:00 10/05/16 07:00 10/05/16 07:00 10/05/16 11:33 10/05/16 07:00 General appearance: Present: severe distress Results - Labs CBC & Chem 7: 10/04/16 06:00 10/05/16 07:30 Labs: Laboratory Last Values WBC 11.5 K/mm3 (4.5-11.0) H 10/04/16 06:00 RBC 3.39 M/mm3 (3.65-5.03) L 10/04/16 06:00 Hgb 9.0 gm/dl (10.1-14.3) L 10/04/16 06:00 Hct 28.1 % (30.3-42.9) L 10/04/16 06:00 MCV 83 fl (79-97) 10/04/16 06:00 MCH 27 pg (28-32) L 10/04/16 06:00 MCHC 32 % (30-34) 10/04/16 06:00 RDW 17.7 % (13.2-15.2) H 10/04/16 06:00 Plt Count 267 K/mm3 (140-440) 10/04/16 06:00 Lymph % (Auto) 23.3 % (13.4-35.0) 10/04/16 06:00 [place] % (Auto) 4.9 % (0.0-7.3) 10/04/16 06:00 Eos % (Auto) 1.1 % (0.0-4.3) 10/04/16 06:00 Baso % (Auto) 0.5 % (0.0-1.8) 10/04/16 06:00 Lymph # 2.7 K/mm3 (1.2-5.4) 10/04/16 06:00 [place] # 0.6 K/mm3 (0.0-0.8) 10/04/16 06:00 Eos # 0.1 K/mm3 (0.0-0.4) 10/04/16 06:00 Baso # 0.1 K/mm3 (0.0-0.1) 10/04/16 06:00 Add Manual Diff Complete 09/30/16 15:46 Total Counted 100 09/30/16 15:46 Seg Neutrophils % 70.2 % (40.0-70.0) H 10/04/16 06:00 Seg Neuts % (Manual) 79.0 % (40.0-70.0) H 09/30/16 15:46 Band Neutrophils % 1.0 % 09/30/16 15:46 Lymphocytes % (Manual) 4.0 % (13.4-35.0) L 09/30/16 15:46 Reactive Lymphs % (Man) 0 % 09/30/16 15:46 Monocytes % (Manual) 10.0 % (0.0-7.3) H 09/30/16 15:46 Eosinophils % (Manual) 0 % (0.0-4.3) 09/30/16 15:46 Basophils % (Manual) 0 % (0.0-1.8) 09/30/16 15:46 Metamyelocytes % 1.0 % 09/30/16 15:46 Myelocytes % 5.0 % 09/30/16 15:46 Promyelocytes % 0 % 09/30/16 15:46 Blast Cells % 0 % 09/30/16 15:46 Nucleated RBC % Not Reportable 09/30/16 15:46 Seg Neutrophils # 8.1 K/mm3 (1.8-7.7) H 10/04/16 06:00 Seg Neutrophils # Man 16.5 K/mm3 (1.8-7.7) H 09/30/16 15:46 Band Neutrophils # 0.2 K/mm3 09/30/16 15:46 Lymphocytes # (Manual) 0.8 K/mm3 (1.2-5.4) L 09/30/16 15:46 Abs React Lymphs (Man) 0.0 K/mm3 09/30/16 15:46 Monocytes # (Manual) 2.1 K/mm3 (0.0-0.8) H 09/30/16 15:46 Eosinophils # (Manual) 0.0 K/mm3 (0.0-0.4) 09/30/16 15:46 Basophils # (Manual) 0.0 K/mm3 (0.0-0.1) 09/30/16 15:46 Metamyelocytes # 0.2 K/mm3 09/30/16 15:46 Myelocytes # 1.0 K/mm3 09/30/16 15:46 Promyelocytes # 0.0 K/mm3 09/30/16 15:46 Blast Cells # 0.0 K/mm3 09/30/16 15:46 WBC Morphology Not Reportable 09/30/16 15:46 Hypersegmented Neuts Not Reportable 09/30/16 15:46 Hyposegmented Neuts Not Reportable 09/30/16 15:46 Hypogranular Neuts Not Reportable 09/30/16 15:46 Smudge Cells Not Reportable 09/30/16 15:46 Toxic Granulation Not Reportable 09/30/16 15:46 Toxic Vacuolation Not Reportable 09/30/16 15:46 Dohle Bodies Not Reportable 09/30/16 15:46 Pelger-Huet Anomaly Not Reportable 09/30/16 15:46 Mary Rods Not Reportable 09/30/16 15:46 Platelet Estimate Consistent w auto 09/30/16 15:46 Clumped Platelets Not Reportable 09/30/16 15:46 Plt Clumps, EDTA Not Reportable 09/30/16 15:46 Large Platelets Few 09/30/16 15:46 Giant Platelets Not Reportable 09/30/16 15:46 Platelet Satelliting Not Reportable 09/30/16 15:46 Plt Morphology Comment Not Reportable 09/30/16 15:46 RBC Morphology Not Reportable 09/30/16 15:46 Dimorphic RBCs Not Reportable 09/30/16 15:46 Polychromasia Not Reportable 09/30/16 15:46 Hypochromasia Not Reportable 09/30/16 15:46 Poikilocytosis Few 09/30/16 15:46 Anisocytosis 1+ 09/30/16 15:46 Microcytosis Not Reportable 09/30/16 15:46 Macrocytosis Not Reportable 09/30/16 15:46 Spherocytes Not Reportable 09/30/16 15:46 Pappenheimer Bodies Not Reportable 09/30/16 15:46 Sickle Cells Not Reportable 09/30/16 15:46 Target Cells Not Reportable 09/30/16 15:46 Tear Drop Cells Not Reportable 09/30/16 15:46 Ovalocytes Not Reportable 09/30/16 15:46 Helmet Cells Not Reportable 09/30/16 15:46 Landers-Tumacacori-Carmen Bodies Not Reportable 09/30/16 15:46 [place] Rings Not Reportable 09/30/16 15:46 Jerri Cells Not Reportable 09/30/16 15:46 Bite Cells Not Reportable 09/30/16 15:46 Crenated Cell Not Reportable 09/30/16 15:46 Elliptocytes Not Reportable 09/30/16 15:46 Acanthocytes (Spur) Not Reportable 09/30/16 15:46 Rouleaux Not Reportable 09/30/16 15:46 Hemoglobin C Crystals Not Reportable 09/30/16 15:46 Schistocytes Not Reportable 09/30/16 15:46 Malaria parasites Not Reportable 09/30/16 15:46 Michael Bodies Not Reportable 09/30/16 15:46 Hem Pathologist Commnt No 09/30/16 15:46 POC ABG pH 6.889 (7.35-7.45) L 09/30/16 21:51 POC ABG pCO2 14.9 (35-45) L 09/30/16 21:51 POC ABG pO2 111 (80-105) H 09/30/16 21:51 POC ABG HCO3 2.8 09/30/16 21:51 POC ABG Total CO2 < 5 09/30/16 21:51 POC ABG O2 Sat 93 09/30/16 21:51 POC ABG Base Excess < -30 09/30/16 21:51 VBG pH 6.809 (7.320-7.420) L* 09/30/16 15:46 FiO2 21 % 09/30/16 21:51 Sodium 145 mmol/L (137-145) 10/05/16 07:30 Potassium 4.0 mmol/L (3.6-5.0) 10/05/16 07:30 Chloride 112.5 mmol/L (98-107) H 10/05/16 07:30 Carbon Dioxide 15 mmol/L (22-30) L 10/05/16 07:30 Anion Gap 22 mmol/L 10/05/16 07:30 BUN 21 mg/dL (7-17) H 10/05/16 07:30 Creatinine 1.7 mg/dL (0.7-1.2) H 10/05/16 07:30 Estimated GFR 39 ml/min 10/05/16 07:30 BUN/Creatinine Ratio 12.35 % 10/05/16 07:30 Glucose 106 mg/dL (65-100) H 10/05/16 07:30 POC Glucose 121 (70-105) H 10/05/16 06:50 Osmolality 329 Mosm/kg 10/01/16 21:44 Lactic Acid 5.7 mmol/L (0.7-2.0) H* 09/30/16 20:14 Uric Acid 7.5 mg/dL (3.5-7.6) 10/01/16 21:44 Calcium 6.6 mg/dL (8.4-10.2) L 10/05/16 07:30 Phosphorus 14.5 mg/dL (2.5-4.5) H 09/30/16 17:13 Magnesium 2.6 mg/dL (1.7-2.3) H 09/30/16 17:13 Total Bilirubin 0.30 mg/dL (0.1-1.2) 10/04/16 06:00 Direct Bilirubin < 0.2 mg/dL (0-0.2) 10/04/16 06:00 Indirect Bilirubin 0.1 mg/dL 10/04/16 06:00 AST 32 units/L (5-40) 10/04/16 06:00 ALT 27 units/L (7-56) 10/04/16 06:00 Alkaline Phosphatase 249 units/L (35-129) H 10/04/16 06:00 Total Creatine Kinase 83 units/L (30-135) 09/30/16 15:46 Serum Total Protein 4.7 g/dL (6.1-8.1) L 10/01/16 21:44 Total Protein 4.6 g/dL (6.3-8.2) L 10/04/16 06:00 Albumin 2.3 g/dL (3.9-5) L 10/04/16 06:00 Albumin/Globulin Ratio 1.0 % 10/04/16 06:00 Zddyc-1-Fdfgyyaqs 0.3 g/dL (0.2-0.3) 10/01/16 21:44 Sfeii-7-Wnckzujau 0.9 g/dL (0.5-0.9) 10/01/16 21:44 Beta Globulins 0.2 g/dL (0.2-0.5) 10/01/16 21:44 Gamma Globulins 0.5 g/dL (0.8-1.7) L 10/01/16 21:44 Abnorm Protein Band 1 see below 10/01/16 21:44 PEP Interpretation see below H 10/01/16 21:44 TSH 1.120 mlU/mL (0.270-4.200) 09/30/16 15:46 HCG, Qual Negative (Negative) 09/30/16 15:46 Urine Color Yellow (Yellow) 09/30/16 16:00 Urine Turbidity Cloudy (Clear) 09/30/16 16:00 Urine pH 5.0 (5.0-7.0) 09/30/16 16:00 Ur Specific [place] 1.017 (1.003-1.030) 09/30/16 16:00 Urine Protein 30 mg/dl mg/dL (Negative) 09/30/16 16:00 Urine Glucose (UA) >=500 mg/dL (Negative) 09/30/16 16:00 Urine Ketones 20 mg/dL (Negative) 09/30/16 16:00 Urine Blood Sm (Negative) 09/30/16 16:00 Urine Nitrite Neg (Negative) 09/30/16 16:00 Urine Bilirubin Neg (Negative) 09/30/16 16:00 Urine Urobilinogen < 2.0 mg/dL (<2.0) 09/30/16 16:00 Ur Leukocyte Esterase Neg (Negative) 09/30/16 16:00 Urine WBC (Auto) < 1.0 /HPF (0.0-6.0) 09/30/16 16:00 Urine RBC (Auto) 2.0 /HPF (0.0-6.0) 09/30/16 16:00 U Epithel Cells (Auto) 1.0 /HPF (0-13.0) 09/30/16 16:00 Urine Bacteria (Auto) 1+ /HPF (Negative) 09/30/16 16:00 Urine Mucus Few /HPF 09/30/16 16:00 Random Vancomycin 9.3 ug/mL (0-40.0) 10/02/16 04:00 Urine Opiates Screen Presumptive negative 09/30/16 16:00 Urine Methadone Screen Presumptive negative 09/30/16 16:00 Ur Barbiturates Screen Presumptive negative 09/30/16 16:00 Ur Phencyclidine Scrn Presumptive negative 09/30/16 16:00 Ur Amphetamines Screen Presumptive negative 09/30/16 16:00 U Benzodiazepines Scrn Presumptive negative 09/30/16 16:00 Urine Cocaine Screen Presumptive negative 09/30/16 16:00 U Marijuana (THC) Screen Presumptive negative 09/30/16 16:00 Drugs of Abuse Note Disclamer 09/30/16 16:00 Plasma/Serum Alcohol < 0.01 gm% (0-0.07) 09/30/16 15:46
[2016-10-05] MEDS ORDERED: COMPAZINE IV PRN (14:00)
--- NOTE | 2016-10-05 16:56 | Consultation ---
History of Present Illness - Reason for Consult Consult date: 10/05/16 N/V - History of Present Illness See Dictated note. Past History Past Medical History: diabetes Past Surgical History: No surgical history, Other (reviewed) Social history: single Family history: diabetes, hypertension Medications and Allergies Allergies Allergy/AdvReac Type Severity Reaction Status Date / Time No Known Allergies Allergy Verified 03/26/14 03:17 Home Medications Medication Instructions Recorded Confirmed Last Taken Type Antacid [Alum-Mag Hydrox-Simeth 30 ml PO Q4H PRN #30 oral.liqd 09/28/16 Unknown Rx [id number]] Famotidine [Pepcid] 20 mg PO DAILY #30 tablet 09/28/16 09/30/16 Unknown Rx Insulin NPH/Regular [NovoLIN 70/30] 12 unit SUB-Q BIDDIAB 30 Days 09/28/1609/30 Unknown Rx Megestrol [Megace] 20 mg PO TID #90 tablet 09/28/16 09/30/16 Unknown Rx Metoprolol [Lopressor TAB] 25 mg PO BID #60 tablet 09/28/16 09/30/16 Unknown Rx Ondansetron [Zofran Odt] 4 mg PO Q8H PRN #30 tab.rapdis 10/05/16 Unknown Rx Promethazine [Phenergan SUPPOS] 25 mg IL Q6HR PRN #30 supp.rect 10/05/16 Unknown Rx Active Meds: Active Medications Al Hydrox/Mg Hydrox/Simethicone (Alum-Mag Hydrox-Simeth [id number]/5ml) 30 ml PO Q4H PRN PRN Reason: Indigestion Albuterol (Proventil) 2.5 mg IH Q4HRT PRN PRN Reason: Shortness Of Breath Bisacodyl (Dulcolax) 10 mg IL QDAY PRN PRN Reason: constipation unrelieved by MOM Dextrose (D50w (25gm)) 0 ml IV ONCE PRN PRN Reason: Hypoglycemia Dextrose (D50w (25gm)) 50 ml IV PRN PRN PRN Reason: Hypoglycemia Last Admin: 10/03/16 20:12 Dose: 25 ml Heparin Sodium (Porcine) (Heparin) 5,000 unit SUB-Q Q12HR ULI Last Admin: 10/05/16 11:39 Dose: Not Given Hydralazine HCl (Apresoline) 10 mg IV Q4H PRN PRN Reason: BP >160/100 Sodium Bicarbonate 75 meq/ (Sodium Chloride) 1,075 mls @ 100 mls/hr IV DIRECT [facility] Last Admin: 10/05/16 04:19 Dose: 100 mls/hr Insulin Aspart (Novolog) 0 units SUB-Q [facility] PRN Reason: Protocol Last Admin: 10/05/16 12:49 Dose: Not Given Insulin Aspart (Novolog) 5 units SUB-Q AC [facility] Last Admin: 10/05/16 12:50 Dose: Not Given Insulin Detemir (Levemir) 15 units SUB-Q QHS [facility] Last Admin: 10/05/16 00:27 Dose: 15 units Magnesium Hydroxide (Milk Of Magnesia) 30 ml PO Q4H PRN PRN Reason: Constipation Metoprolol Tartrate (Lopressor) 25 mg PO BID [facility] Last Admin: 10/05/16 11:33 Dose: 25 mg Ondansetron HCl (Zofran) 4 mg IV Q4H PRN PRN Reason: Nausea And Vomiting Last Admin: 10/05/16 11:31 Dose: 4 mg Prochlorperazine Edisylate (Compazine) 10 mg IV Q6H PRN PRN Reason: Nausea And Vomiting Promethazine HCl (Phenergan) 25 mg IL Q6H PRN PRN Reason: Nausea And Vomiting Exam - Constitutional Vitals: Temp Pulse Resp BP Pulse Ox 97.9 F 87 18 136/60 100 10/05/16 07:00 10/05/16 07:00 10/05/16 07:00 10/05/16 11:33 10/05/16 07:00 Results - Labs CBC & Chem 7: 10/04/16 06:00 10/05/16 07:30 Labs: Abnormal lab results 10/01/16 10/04/16 10/05/16 Range/Units 21:44 22:58 06:50 Chloride (98-107) mmol/L Carbon Dioxide (22-30) mmol/L BUN (7-17) mg/dL Creatinine (0.7-1.2) mg/dL Glucose (65-100) mg/dL POC Glucose 298 H 121 H (70-105) Calcium (8.4-10.2) mg/dL Serum Total Protein 4.7 L (6.1-8.1) g/dL Albumin 2.5 L (3.8-4.8) g/dL Gamma Globulins 0.5 L (0.8-1.7) g/dL PEP Interpretation see below H 10/05/16 10/05/16 10/05/16 Range/Units 07:30 12:26 13:19 Chloride 112.5 H (98-107) mmol/L Carbon Dioxide 15 L (22-30) mmol/L BUN 21 H (7-17) mg/dL Creatinine 1.7 H (0.7-1.2) mg/dL Glucose 106 H (65-100) mg/dL POC Glucose 41 L 169 H (70-105) Calcium 6.6 L (8.4-10.2) mg/dL Serum Total Protein (6.1-8.1) g/dL Albumin (3.8-4.8) g/dL Gamma Globulins (0.8-1.7) g/dL PEP Interpretation Assessment and Plan Pt with 11 yr hx of DM, and 2 wk hx of N/V. No abd pain. No prior dyspeptic symptoms. GB ultrasound negative. Imp - N/V - etiology unclear. DDx - PUD vs. biliary dyskinesia vs. other. DM gastroparesis possible, but this would be the initial onset. Plan - EGD - if negative, HIDA with CCK - may consider Ativan to control N/V - then, possible CT
--- NOTE | 2016-10-05 21:02 | Consultation ---
TIME OF SERVICE: 11:00 a.m. in the morning. SOURCE OF INFORMATION: From patient herself. PERSONNEL ASKING CONSULTATION: ICU team as well as Dr. Yasir Weber. HISTORY OF PRESENT ILLNESS: The patient is a pleasant 46-year-old female who is normally followed by [facility] who was admitted with uncontrolled blood sugar as well as altered mental status. The patient was also noted to be in diabetic ketoacidosis with bicarbonate of 2, potassium of 7.3, BUN 55, creatinine of 3.3, currently we are treating her DKA and she is symptomatically improving. Consultation was placed for management of acute renal failure. The patient is currently feeling better. She is making urine. She does not complain of any shortness of breath or chest pain. The patient states that she only follows with [facility] and has never been told to have any history of renal failure. She does not remember taking any form of nonsteroidal anti-inflammatories nor does she have any history suggestive of hematuria, proteinuria, lupus, paraproteinemia, discussed at length. PAST MEDICAL HISTORY: Significant for multiple medical problems includin. Diabetes, which is uncontrolled. 2. The patient is currently being followed by [facility]. CURRENT ALLERGIES: None. HOME MEDICATIONS: Antacid, famotidine, insulin 70/30, Megace as well as metoprolol. PAST SURGICAL HISTORY: Significant for none. SOCIAL HISTORY: The patient is currently single. Denies any history of alcohol, drug, or tobacco use. FAMILY HISTORY: Positive for diabetes as well as hypertension. REVIEW OF SYSTEMS: Positive for nausea, vomiting, poor appetite for the last 4-5 days prior to admission, uncontrolled blood sugars, otherwise essentially negative for all the other systems. PHYSICAL EXAMINATION: GENERAL: The patient is a pleasant 46-year-old female who is lying comfortably in bed, does no appear in acute distress. VITAL SIGNS: Reviewed from this admission. HEENT: Normocephalic, atraumatic. Extraocular movements are intact. NECK: Supple without thyromegaly or JVD. CHEST: Essentially clear to auscultation anteriorly and posteriorly. HEART: Regular rate. S1, S2 heard. No S3, S4. ABDOMEN: Soft, nontender. No voluntary guarding or rebound. No abnormality or masses. EXTREMITIES: 1+ edema, dry skin. Peripheral pulses palpable. No acute discoloration or cyanosis. ENDOCRINE: Thyroid not enlarged. PSYCHIATRIC: The patient is pleasant. LABS AND X-RAYS: As of this admission today, white cell count of 20.9, hemoglobin 9.4, hematocrit ____, platelet count is about 369,000. Sodium 147, potassium 3.7, chloride 117, bicarbonate 12, BUN 26, creatinine 2.2 with a sugar of 130, calcium of 6.1, phosphorus was 14 on 09/30/2016 that needs to be followed up and ____. ASSESSMENT AND PLAN: 1. Acute kidney injury in a patient who does have some risk factor for underlying chronic kidney disease. The patient's renal function was declining, but currently has been improving. She had definite history of poor p.o. intake with nausea, vomiting, and uncontrolled hyperglycemia with severe diabetic ketoacidosis. She is at risk for acute tubular necrosis to rule out other causes as well. 2. Ultrasonogram shows some chronic kidney disease changes. The patient was made aware. Urinalysis shows evidence of proteinuria as well as glycosuria that needs to be monitored, possibility of diabetic nephropathy is there. 3. Hypernatremia, currently improving. 4. Severe acidosis, currently has improved from bicarbonate 2 to 14. 5. Severe hyperkalemia, present upon admission, likely due to insulin deficiency, currently improved as well. 6. Severe leukocytosis, could be due to infection, stress, dehydration, please work her up. Plan of care discussed with the patient. All questions were answered. At this time, renal function prince she is improving. Markedly, her creatinine has come down to 2.2, acidosis is slowly improving. Her hypernatremia is mild. Leukocytosis needs further workup. She will need to follow up on her phosphorus as well as calcium levels. Currently, she is asymptomatic, likely this was resulting from acute renal failure. Renal prognosis appears to be guarded. 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 She is willing to make this appointment in the outpatient setting. Thank you for the consultation. I will continue to follow and make recommendations from renal standpoint. JOB# [id number] IDA/BAM
[2016-10-06] MEDS ORDERED: XYLOCAINE MPF 2% ONE (00:24)
--- NOTE | 2016-10-06 00:40 | Consultation ---
REFERRING PHYSICIAN: Roxanne Coffman MD REASON FOR CONSULTATION: Nausea, vomiting. HISTORY OF PRESENT ILLNESS: The patient is a 46-year-old woman who has an 11-year history of diabetes. She was hospitalized from 09/22/2016 to 09/28/2016 with DKA and being unresponsive. She was discharged and represented on 09/30/2016 with a glucose greater than 600, feeling sick, and with some altered mental status. She is doing much better now. She complains of ongoing problems with nausea and vomiting over the last 2-3 weeks. She states that she appears to have chronic mild nausea, but is especially worse with the sight, smell, or taste of food. She denies any prior similar symptoms. There have been no fevers, chills, or sweats. She has had no abdominal pain whatsoever. There has been no change in her usual every other day bowel movements except while she is in the hospital where she states she has had some explosive bowel movements several times a day. There has been no GI bleeding. Prior to all of this, she denies problems with dyspepsia, reflux, abdominal pain, or nausea. She denies any significant complications of her diabetes and states she was fairly well controlled and followed at [facility]. She has recently moved to the [facility]. ALLERGIES: She has no known drug allergies. MEDICATIONS: At home, she is on metoprolol, Megace, insulin, Pepcid, and p.r.n. promethazine or Zofran. PAST MEDICAL HISTORY: She has history of: 1. Hypertension. 2. Diabetes. FAMILY HISTORY: Negative for malignancy. SOCIAL HISTORY: She occasionally drinks alcohol and denies tobacco use. She moved from [place] 17 years ago. PHYSICAL EXAMINATION: GENERAL: This is a thin, middle-aged black female lying in bed who appears to be older than stated age. VITAL SIGNS: Temperature is 97.9, pulse 87, blood pressure . HEENT: She is anicteric. Pupils are round and reactive. Oropharynx is clear. LUNGS: Clear bilaterally to auscultation. CARDIOVASCULAR: Regular with no extra heart sounds. ABDOMEN: Soft with good bowel sounds and no organomegaly or tenderness to deep palpation. RECTAL: Deferred. NEUROLOGIC: She is alert, oriented x 3 and grossly nonfocal. LABORATORY DATA: Her white count is 11.5, hemoglobin 9.0, hematocrit 28.1, MCV of 83, platelet count of 267,000. Sodium 145, potassium 4.0, chloride 112, bicarbonate 15, BUN 21, creatinine 1.7, glucose is 106, AST of 32, ALT 27, alkaline phosphatase 249, total bilirubin of 0.3, and an albumin of 2.3. The patient had an abdominal ultrasound done on 10/03/2016 which showed no gallstones and was otherwise normal. IMPRESSION: 1. Nausea/vomiting -- etiology unclear 2. Diabetic gastroparesis is certainly a consideration given that she has diabetes. However, the patient does not have any prior symptoms. Alternatively, she could have peptic ulcer disease or possibly biliary dyskinesia. PLAN: 1. Upper endoscopy. 2. HIDA scan with CCK. 3. May consider trial of Ativan if symptoms persist and then possibly consider tricyclics or other agent for neuro-modulating effects. JOB# [id number] HRC/NTS
[2016-10-06] MEDS: NACL 0.45% 1000 ML 1,000 ML with SODIUM BICARBONATE 75 MEQ IV SCH (03:32)
[2016-10-06] MEDS: D50W (25GM) IV PRN ×3 (05:45→09:50)
[2016-10-06 07:17] LABS: Anion Gap 19 mmol/L; BUN/Creatinine Ratio 11.33; Blood Urea Nitrogen 17 mg/dL (7-17); Calcium 6.9 mg/dL (8.4-10.2); Carbon Dioxide 19 mmol/L (22-30); Chloride 108.3 mmol/L (98-107); Sodium 144 mmol/L (137-145)
[2016-10-06] MEDS: NOVOLOG SUB-Q SCH ×6 (07:41→19:30)
[2016-10-06 08:19] LABS: Glucose 19 mg/dL (65-100)
[2016-10-06 08:21] LABS: Potassium TNR mmol/L (3.6-5.0)
--- NOTE | 2016-10-06 08:46 | Progress Note ---
Assessment and Plan 46 YO Female with HTN, Malnutrition, DM, Medication Noncompliance presents to ED for evaluation. Her BG was >500 on admission, admitted with DKA management. Hypoglycemia - Tachycardia due to nothing by mouth status as she is waiting for EGD - will reduce the dose of insulin and will cont to monitor BG - will change to D5NS @ 150ml/h for now SIRS - due to DKA, infectious etiology ruled out, culture is negative, chest x-ray and UA were negative. RUQ sono wnl DM type 2, uncontrolled - DKA has resolved -continue insulin to manage blood glucose Dehydration/hypernatremia - continue IVF, Na is now wnl Toxic metabolic encephalopathy - Now resolved most likely due to DKA Acute kidney injury - Most likely due to vasomotor nephropathy, - Nephrology input appreciated, renal functions improving, - renal US showed medical renal disease Hypocalcemia - corrected and has improved Severe malnutrition - albumin is 2.3, college sports coach consulted, encourage balanced diet when able to tolerate po Abdomianl pain, Nausea vomiting - RUQ US wnl, likely Gastroparesis - Gi consulted, s/p EGD today, wait for final report - had HIDA scan today which is positive, will consult surgery Upper back cyst- - surgery input appreciated, epidermal inclusion cyst, not infected - can fup as outpatient for excision Subjective Date of service: 10/06/16 Interval history: Patient seen and examined. Medical records and medication list reviewed. No acute event overnight noted by the RN. Patient denies any chest pain or difficulty breathing. Status post EGD today, tolerated well Discussed plan of care at bedside with patient. Objective - Exam Narrative Exam: GENERAL: AA female lying on bed appeared to be in no discomfort. HEENT: Normocephalic. Atraumatic. No conjunctival congestion or icterus. Patient has moist mucous membranes. NECK: Supple. Trachea midline. CHEST/LUNGS: Clear to auscultated bilaterally, breathing nonlabored. No wheezes crackles or rhonchi. HEART/CARDIOVASCULAR: Regular in rate and rhythm. S1 and S2 positive. ABDOMEN: Abdomen is soft, nontender. Patient has normal bowel sounds. SKIN: There is no rash. Warm and dry. NEURO: No focal motor deficit. Follows command. MUSCULOSKELETAL: No joint effusion or tenderness. EXTRIMITY: No edema, no cyanosis or clubbing. PSYCH: Cooperative. - Constitutional Vitals: Vital Signs - 12hr 10/05/16 10/05/16 10/06/16 22:00 22:32 08:00 Temperature 98.1 F Pulse Rate 99 H Pulse Rate [ 79 From Monitor] Respiratory 17 18 Rate Respiratory 18 Rate [no pain] Blood Pressure 124/77 Blood Pressure 138/95 [Right Arm] O2 Sat by Pulse 98 Oximetry - Labs CBC & Chem 7: 10/07/16 05:13 10/07/16 05:13 Labs: Abnormal lab results 10/05/16 10/05/16 10/05/16 Range/Units 12:26 13:19 16:23 Chloride (98-107) mmol/L Carbon Dioxide (22-30) mmol/L Creatinine (0.7-1.2) mg/dL Glucose (65-100) mg/dL POC Glucose 41 L 169 H 183 H (70-105) Calcium (8.4-10.2) mg/dL 10/05/16 10/06/16 10/06/16 Range/Units 21:33 05:05 05:32 Chloride 108.3 H (98-107) mmol/L Carbon Dioxide 19 L (22-30) mmol/L Creatinine 1.5 H (0.7-1.2) mg/dL Glucose 19 L* (65-100) mg/dL POC Glucose 180 H < 40 L (70-105) Calcium 6.9 L (8.4-10.2) mg/dL 10/06/16 Range/Units 07:05 Chloride (98-107) mmol/L Carbon Dioxide (22-30) mmol/L Creatinine (0.7-1.2) mg/dL Glucose (65-100) mg/dL POC Glucose < 40 L (70-105) Calcium (8.4-10.2) mg/dL
[2016-10-06] MEDS ORDERED: D5NS 1,000 ML IV SCH (10:00)
[2016-10-06] MEDS: HEPARIN SUB-Q SCH ×2 (10:00→21:36)
[2016-10-06] MEDS: LOPRESSOR PO SCH ×2 (10:00→21:28)
[2016-10-06 10:49] LABS: BUN/Creatinine Ratio 11.53; Calcium 6.7 mg/dL (8.4-10.2); Potassium 3.3 mmol/L (3.6-5.0)
[2016-10-06] MEDS ORDERED: WATER FOR INJ (PF) 10 ML ONE (13:06)
[2016-10-06] MEDS ORDERED: KINEVAC IV ONE ×2 (13:06→13:15)
[2016-10-06] MEDS ORDERED: WATER FOR INJ (PF) IV ONE (14:00)
[2016-10-06] MEDS ORDERED: NACL 0.9% 1000 ML 1,000 ML IV SCH (15:00)
--- NOTE | 2016-10-06 15:17 | Nuclear Medicine Report ---
HIDA WITH CCK INDICATION: Nausea, vomiting, right upper quadrant pain. COMPARISON: None similar. FINDINGS: Dynamic right upper quadrant imaging performed in the anterior projection over 60 minutes following uneventful intravenous administration of 5 mCi of Technetium 99m Choletec. Prompt and homogenous hepatic radiotracer uptake with subsequent washout seen with gallbladder activity noted conclusively at 55 minutes and bowel activity seen at 10 minutes. Subsequently, 1 mcg of cholecystokinin infused intravenously over a period of 3 minutes with the patients symptoms of nausea and vomiting duplicated. The calculated ejection fraction is 28% (normal greater than 35%). CONCLUSION: Biliary dyskinesia with gallbladder ejection fraction of 28% and patient's symptoms reproduced following CCK, as described. Please correlate. Thank you for the opportunity to participate in this patient's care.
[2016-10-06] MEDS ORDERED: DIPRIVAN 10 MG/ML IV ONE (15:58)
--- NOTE | 2016-10-06 15:59 | Anesthesia Consultation ---
Anesthesia Consult and Med Hx - Airway Anesthetic Teeth Evaluation: Dentures ROM Head & Neck: Adequate Mental/Hyoid Distance: Adequate Mallampati Class: Class II Intubation Access Assessment: Probably Good - Pulmonary Exam CTA: Yes - Cardiac Exam Cardiac Exam: RRR - Pre-Operative Health Status ASA Pre-Surgery Classification: ASA3 Proposed Anesthetic Plan: MAC - Pulmonary Hx Asthma: No COPD: No Hx Pneumonia: No - Cardiovascular System Hx Hypertension: Yes - Central Nervous System Hx Psychiatric Problems: No - Endocrine Hx End Stage Renal Disease: No Hx Insulin Dependent Diabetes: Yes - Hematic Hx Anemia: No Hx Sickle Cell Disease: No
--- NOTE | 2016-10-06 16:00 | Anesthesia Day of Surgery ---
Anesthesia Day of Surgery - Day of Surgery Patient Examined: Yes Patient H&P Reviewed: Yes Patient is NPO: Yes Beta Blockers: No (pt NPO will give as needed)
[2016-10-06] MEDS ORDERED: WATER FOR IRRIG STERILE IR ONE (16:01)
--- NOTE | 2016-10-06 16:19 | Post Operative Note ---
Pre-op diagnosis: N/V Post-op diagnosis: other (Erosive esophagitis, gastritis) Findings: 1. Linear erosive esophagitis from 30 to 38 cm from gums. 2. Patchy nodular gastritis, mild, in fundus. Biopsied. 3. O/w normal stomach. 4. Moderate duodenitis with patchy erythema. Procedure: EGD with biopsy Anesthesia: MAC Surgeon: DEBORAH POWER Estimated blood loss: minimal Pathology: list (1. Gastric fundus) Specimen disposition: to lab Condition: stable Disposition: floor (1. Chronic PPI 2. However, low GBEF and N/V most c/w biliary dyskinesia)
--- NOTE | 2016-10-06 17:11 | Post Anesthesia Evaluation ---
- Post Anesthesia Evaluation Patient Participated: Yes Airway Patent: Yes Stable Respiratory Function: Yes Nausea/Vomiting: No Temp > 96.8F: Yes Pain Manageable: Yes Adequeate Hydration: Yes Anesthesia Complications: No
[2016-10-06] MEDS: PROTONIX PO SCH (19:30)
[2016-10-06] MEDS ORDERED: MORPHINE IV PRN (20:17)
[2016-10-06] MEDS: NACL 0.9% 1000 ML 1,000 ML IV SCH (21:20)
[2016-10-06] MEDS ORDERED: LEVEMIR SUB-Q SCH (22:00)
--- NOTE | 2016-10-07 02:00 | Operative Report ---
PROCEDURE: Upper endoscopy. PREOPERATIVE DIAGNOSES: Nausea, vomiting. POSTOPERATIVE DIAGNOSES: Erosive esophagitis and mild gastritis and duodenitis. SEDATION: MAC by Anesthesia. HISTORY: The patient is a 46-year-old woman with 11-year history of diabetes who presents with a 2-week history of intermittent nausea, vomiting precipitated by p.o. intake. She had a HIDA scan, which showed a low gallbladder ejection fraction of 28%. DESCRIPTION OF PROCEDURE: Indications, risks, and benefits were explained and consent was obtained. The patient was placed in left lateral decubitus position and sedated. [employer] video upper endoscope was passed through the mouth and oropharynx into the descending duodenum. Scope was then gradually withdrawn with close inspection of the mucosa. FINDINGS: 1. Linear erosions extending from 30 cm from the gums to 38 cm from the gums, consistent with erosive esophagitis. Z line is located at 38 cm from the gums. 2. Mild patchy nodular gastritis with a few scattered nodules noted in the gastric fundus and proximal body. Biopsies were obtained. 3. Remainder of stomach, gastric antrum, fundus, body, and cardia are normal appearing. 3. Patchy erythema with scattered erosions noted in the duodenum consistent with mild erosive duodenitis. The patient tolerated the procedure well without immediate complications. IMPRESSION: 1. Erosive esophagitis. 2. Mild nodular gastritis -- biopsied. 3. Mild erosive duodenitis. PLAN: 1. Initiate proton pump inhibitors. 2. Follow up biopsies. 3. Follow up as an outpatient and repeat upper endoscopy in 6-8 weeks. 4. Surgical evaluation for biliary dyskinesia. [facility]# [id number] HRC/NTS
[2016-10-07] MEDS: NACL 0.9% 1000 ML 1,000 ML IV SCH (05:40)
[2016-10-07 06:17] LABS: Basophils % (Auto) 0.6 % (0.0-1.8); Eosinophils % (Auto) 1.3 % (0.0-4.3); Hematocrit 25.6 % (30.3-42.9); Hemoglobin 8.5 gm/dl (10.1-14.3); Mean Corpuscular HGB Conc 33 % (30-34); Mean Corpuscular Hemoglobin 28 pg (28-32); Mean Corpuscular Volume 83 fl (79-97); Platelet Count 214 K/mm3 (140-440); Red Blood Count 3.09 M/mm3 (3.65-5.03); Red Cell Distribution Width 16.8 % (13.2-15.2); White Blood Count 10.8 K/mm3 (4.5-11.0)
[2016-10-07] MEDS: D50W (25GM) IV PRN (06:23)
[2016-10-07 06:38] LABS: Blood Urea Nitrogen 11 mg/dL (7-17); Calcium 6.3 mg/dL (8.4-10.2); Carbon Dioxide 20 mmol/L (22-30)
[2016-10-07 06:39] LABS: Anion Gap 18 mmol/L; Chloride 109.6 mmol/L (98-107); Sodium 145 mmol/L (137-145)
[2016-10-07 07:02] LABS: Glucose 20 mg/dL (65-100); Potassium 2.6 mmol/L (3.6-5.0)
[2016-10-07] MEDS: TYLENOL PO PRN (07:47)
[2016-10-07] MEDS ORDERED: K-DUR PO ONE (08:00)
--- NOTE | 2016-10-07 09:26 | Progress Note ---
Assessment and Plan Assessment: * Acute kidney injury secondary to prerenal azotemia vs underlying CKD * DKA * Hypernatremia, mild * Hypertension * Anemia * hypokalemia Plan: * Continue IVF for hydration - add kcl and stop bicarb * follow up mag level * cr is 1.0 and stable today * check corrected calcium * Tight glycemic control * Adjust medications for renal function * Avoid potential nephrotoxins * AM labs Subjective Date of service: 10/07/16 Principal diagnosis: tip Interval history: resting well in bed today Objective - Exam Narrative Exam: General appearance: well-developed, well-nourished EENT: ATNC Respiratory: Present: Clear to Ascultation Cardiology: regular, S1S2 Gastrointestinal: normal, no tenderness, no distended Integumentary: no rash Musculoskeletal: other (no edema) Psychiatric: cooperative - Vital Signs Vital signs: Vital Signs - 12hr 10/06/16 10/06/16 10/06/16 21:28 22:00 23:00 Temperature 98.9 F Pulse Rate 68 Pulse Rate [ From Monitor] Pulse Rate [ 68 Right Radial] Respiratory 20 Rate Respiratory 16 Rate [no pain] Blood Pressure 158/95 Blood Pressure 158/95 [Right Arm] O2 Sat by Pulse 100 Oximetry 10/07/16 08:00 Temperature 97.7 F Pulse Rate Pulse Rate [ 83 From Monitor] Pulse Rate [ Right Radial] Respiratory 18 Rate Respiratory Rate [no pain] Blood Pressure Blood Pressure 176/90 [Right Arm] O2 Sat by Pulse 100 Oximetry - Lab 10/07/16 05:13 10/07/16 05:13 Most recent lab results Calcium 6.3 mg/dL (8.4-10.2) L 10/07/16 05:13 Phosphorus 14.5 mg/dL (2.5-4.5) H 09/30/16 17:13 Magnesium 2.6 mg/dL (1.7-2.3) H 09/30/16 17:13
[2016-10-07] MEDS ORDERED: NACL 0.45% 1000 ML 1,000 ML with KCL 20 MEQ IV SCH (10:00)
--- NOTE | 2016-10-07 10:00 | Progress Note ---
Assessment and Plan 46 YO Female with HTN, Malnutrition, DM, Medication Noncompliance presents to ED for evaluation. Her BG was >500 on admission, admitted with DKA management. Continue to c/o abdominal pain N/V even after EKA resolved. GI was consulted, s/ p EGD on 10/06/16 showed errosive esophagitis. Hypoglycemia - will stop long acting and premeal insulin - will continue D5NS @ 100ml/h for now SIRS - due to DKA, infectious etiology ruled out, culture is negative, chest x-ray and UA were negative. RUQ sono wnl DM type 2, uncontrolled - DKA has resolved - continue SSI to manage blood glucose - a1c 14.1 Dehydration/hypernatremia - continue IVF, Na is now wnl Toxic metabolic encephalopathy - Now resolved most likely due to DKA Acute kidney injury - Most likely due to vasomotor nephropathy, - Nephrology input appreciated, renal functions improving, - renal US showed medical renal disease Hypocalcemia - corrected and has improved Severe malnutrition - albumin is 2.3, element burner consulted, encourage balanced diet when able to tolerate po Abdomianl pain, Nausea vomiting - RUQ US wnl, GI consulted, s/p EGD on 10/06/16, showed errosive esophagitis - had HIDA scan which is positive, surgery consult pending - tolerating diet now Upper back cyst- - surgery input appreciated, epidermal inclusion cyst, not infected - can f/up as outpatient for excision Subjective Date of service: 10/07/16 Principal diagnosis: tip Interval history: Patient seen and examined. Medical records and medication list reviewed. Patient denies any chest pain or difficulty breathing. BG at 20s this morning, k level dropped to 2.6 Discussed plan of care at bedside with patient. Objective - Exam Narrative Exam: GENERAL: AA female lying on bed appeared to be in no discomfort. HEENT: Normocephalic. Atraumatic. No conjunctival congestion or icterus. Patient has moist mucous membranes. NECK: Supple. Trachea midline. CHEST/LUNGS: Clear to auscultated bilaterally, breathing nonlabored. No wheezes crackles or rhonchi. HEART/CARDIOVASCULAR: Regular in rate and rhythm. S1 and S2 positive. ABDOMEN: Abdomen is soft, nontender. Patient has normal bowel sounds. SKIN: There is no rash. Warm and dry. NEURO: No focal motor deficit. Follows command. MUSCULOSKELETAL: No joint effusion or tenderness. EXTRIMITY: No edema, no cyanosis or clubbing. PSYCH: Cooperative. - Constitutional Vitals: Vital Signs - 12hr 10/06/16 10/07/16 23:00 08:00 Temperature 98.9 F 97.7 F Pulse Rate [ 83 From Monitor] Pulse Rate [ 68 Right Radial] Respiratory 20 18 Rate Blood Pressure 158/95 176/90 [Right Arm] O2 Sat by Pulse 100 100 Oximetry - Labs CBC & Chem 7: 10/07/16 05:13 10/07/16 05:13 Labs: Abnormal lab results 10/06/16 10/06/16 10/06/16 Range/Units 09:50 10:34 10:59 RBC (3.65-5.03) M/mm3 Hgb (10.1-14.3) gm/dl Hct (30.3-42.9) % RDW (13.2-15.2) % [place] % (Auto) (0.0-7.3) % Potassium 3.3 L (3.6-5.0) mmol/L Chloride (98-107) mmol/L Carbon Dioxide 21 L (22-30) mmol/L Creatinine 1.3 H (0.7-1.2) mg/dL Glucose 124 H (65-100) mg/dL POC Glucose 110 H 118 H (70-105) Calcium 6.7 L (8.4-10.2) mg/dL 10/06/16 10/06/16 10/07/16 Range/Units 18:05 21:28 05:13 RBC (3.65-5.03) M/mm3 Hgb (10.1-14.3) gm/dl Hct (30.3-42.9) % RDW (13.2-15.2) % [place] % (Auto) (0.0-7.3) % Potassium 2.6 L* D (3.6-5.0) mmol/L Chloride 109.6 H (98-107) mmol/L Carbon Dioxide 20 L (22-30) mmol/L Creatinine (0.7-1.2) mg/dL Glucose 20 L* (65-100) mg/dL POC Glucose 300 H 181 H (70-105) Calcium 6.3 L (8.4-10.2) mg/dL 10/07/16 10/07/16 10/07/16 Range/Units 05:13 06:12 06:34 RBC 3.09 L (3.65-5.03) M/mm3 Hgb 8.5 L (10.1-14.3) gm/dl Hct 25.6 L (30.3-42.9) % RDW 16.8 H (13.2-15.2) % [place] % (Auto) 7.7 H (0.0-7.3) % Potassium (3.6-5.0) mmol/L Chloride (98-107) mmol/L Carbon Dioxide (22-30) mmol/L Creatinine (0.7-1.2) mg/dL Glucose (65-100) mg/dL POC Glucose < 40 L 139 H (70-105) Calcium (8.4-10.2) mg/dL
[2016-10-07] MEDS: NOVOLOG SUB-Q SCH ×4 (10:16→17:23)
[2016-10-07] MEDS: LOPRESSOR PO SCH ×2 (10:19→22:55)
[2016-10-07] MEDS: HEPARIN SUB-Q SCH ×3 (10:19→23:02)
[2016-10-07] MEDS: PROTONIX PO SCH (10:19)
[2016-10-07] MEDS: KCL 10MEQ/100ML 10 MEQ/100 ML BAG IV SCH ×3 (10:20→11:59)
[2016-10-07] MEDS: NS 0.45/KCL 20MEQ 20 MEQ/1,000 ML BAG IV SCH ×2 (11:58→23:05)
[2016-10-07] MEDS ORDERED: MAGNESIUM SULFATE 2GM/50ML 2 GM/50 ML BAG IV ONE (12:30)
--- NOTE | 2016-10-07 17:00 | Progress Note ---
Assessment and Plan 1. N/V - resolved. May be due to biliary dyskinesia or to PUD. Given resolution, could keep on chronic PPI, and do CCX if symptoms recur. Alternatively, could proceed with elective CCX, based on surgical consult. - chronic PPI - f/u with GI in 4-6 wks, for repeat EGD in 2 months to assess esophagitis, etc. Will sign off. Please call as needed. Subjective Date of service: 10/07/16 Principal diagnosis: tip Interval history: Pt feels well. No N/V. Ayaan po. Objective - Constitutional Vitals: Vital Signs - 12hr 10/07/16 10/07/16 08:00 15:00 Temperature 97.7 F 98.9 F Pulse Rate [ 83 89 From Monitor] Respiratory 18 18 Rate Blood Pressure 176/90 127/85 [Right Arm] O2 Sat by Pulse 100 99 Oximetry General appearance: Present: no acute distress - EENT Eyes: PERRL, EOM intact ENT: hearing intact - Respiratory Respiratory effort: normal - Gastrointestinal General gastrointestinal: Present: soft, non-tender - Labs CBC & Chem 7: 10/07/16 05:13 10/07/16 05:13 Labs: Abnormal lab results 10/06/16 10/06/16 10/07/16 Range/Units 18:05 21:28 05:13 RBC (3.65-5.03) M/mm3 Hgb (10.1-14.3) gm/dl Hct (30.3-42.9) % RDW (13.2-15.2) % [place] % (Auto) (0.0-7.3) % Potassium 2.6 L* D (3.6-5.0) mmol/L Chloride 109.6 H (98-107) mmol/L Carbon Dioxide 20 L (22-30) mmol/L Glucose 20 L* (65-100) mg/dL POC Glucose 300 H 181 H (70-105) Hemoglobin A1c (4-6) % Calcium 6.3 L (8.4-10.2) mg/dL Magnesium (1.7-2.3) mg/dL 10/07/16 10/07/16 10/07/16 Range/Units 05:13 05:13 05:13 RBC 3.09 L (3.65-5.03) M/mm3 Hgb 8.5 L (10.1-14.3) gm/dl Hct 25.6 L (30.3-42.9) % RDW 16.8 H (13.2-15.2) % [place] % (Auto) 7.7 H (0.0-7.3) % Potassium (3.6-5.0) mmol/L Chloride (98-107) mmol/L Carbon Dioxide (22-30) mmol/L Glucose (65-100) mg/dL POC Glucose (70-105) Hemoglobin A1c 14.1 H (4-6) % Calcium (8.4-10.2) mg/dL Magnesium 1.20 L (1.7-2.3) mg/dL 10/07/16 10/07/16 10/07/16 Range/Units 06:12 06:34 11:21 RBC (3.65-5.03) M/mm3 Hgb (10.1-14.3) gm/dl Hct (30.3-42.9) % RDW (13.2-15.2) % [place] % (Auto) (0.0-7.3) % Potassium (3.6-5.0) mmol/L Chloride (98-107) mmol/L Carbon Dioxide (22-30) mmol/L Glucose (65-100) mg/dL POC Glucose < 40 L 139 H 299 H (70-105) Hemoglobin A1c (4-6) % Calcium (8.4-10.2) mg/dL Magnesium (1.7-2.3) mg/dL 10/07/16 Range/Units 16:08 RBC (3.65-5.03) M/mm3 Hgb (10.1-14.3) gm/dl Hct (30.3-42.9) % RDW (13.2-15.2) % [place] % (Auto) (0.0-7.3) % Potassium (3.6-5.0) mmol/L Chloride (98-107) mmol/L Carbon Dioxide (22-30) mmol/L Glucose (65-100) mg/dL POC Glucose 254 H (70-105) Hemoglobin A1c (4-6) % Calcium (8.4-10.2) mg/dL Magnesium (1.7-2.3) mg/dL
[2016-10-08 05:22] LABS: BUN/Creatinine Ratio 8.33; Chloride 102.5 mmol/L (98-107); Potassium 5.2 mmol/L (3.6-5.0)
[2016-10-08 05:26] LABS: Calcium 5.8 mg/dL (8.4-10.2)
[2016-10-08] MEDS: NOVOLOG SUB-Q SCH ×3 (07:26→17:43)
[2016-10-08] MEDS: LOPRESSOR PO SCH ×2 (09:16→21:30)
[2016-10-08] MEDS: HEPARIN SUB-Q SCH ×2 (09:17→21:37)
[2016-10-08] MEDS: ZOFRAN IV PRN (09:17)
[2016-10-08] MEDS: PROTONIX PO SCH (09:17)
[2016-10-08] MEDS: NS 0.45/KCL 20MEQ 20 MEQ/1,000 ML BAG IV SCH ×2 (10:57→22:23)
[2016-10-08] MEDS ORDERED: CALCIUM GLUCONATE 2,000 MG in NACL 0.9% 100 ML IV ONE (11:00)
--- NOTE | 2016-10-08 11:41 | Progress Note ---
Assessment and Plan Pt already seen by Dr. Alberts (Gen Surg) on this admission. Hida - 28% EF with good visualization of GB. No evidence of cholecystitis. borderline biliary dyskenesia? Surgically stable may be f/u by Dr. Alberts as outpt for possible elective cholecystectomy. risk/ benefits will have to be carefully outlined to pt as condition is not clear cut and symptoms may not resolve Objective Vital Signs - 12hr 10/08/16 10/08/16 10/08/16 00:18 08:31 09:16 Temperature 98.9 F 98.7 F Pulse Rate [ 82 80 Right Radial] Respiratory 20 20 Rate Blood Pressure 160/98 Blood Pressure 145/75 160/98 [Right Arm] O2 Sat by Pulse 97 98 Oximetry - Labs 10/07/16 05:13 10/08/16 04:00 Diabetes panel 10/08/16 Range/Units 04:00 Sodium 134 L D (137-145) mmol/L Potassium 5.2 H D (3.6-5.0) mmol/L Chloride 102.5 (98-107) mmol/L Carbon Dioxide 19 L (22-30) mmol/L BUN 10 (7-17) mg/dL Creatinine 1.2 (0.7-1.2) mg/dL Glucose 420 H (65-100) mg/dL Calcium 5.8 L* (8.4-10.2) mg/dL Calcium panel 10/08/16 Range/Units 04:00 Calcium 5.8 L* (8.4-10.2) mg/dL Pituitary panel 10/08/16 Range/Units 04:00 Sodium 134 L D (137-145) mmol/L Potassium 5.2 H D (3.6-5.0) mmol/L Chloride 102.5 (98-107) mmol/L Carbon Dioxide 19 L (22-30) mmol/L BUN 10 (7-17) mg/dL Creatinine 1.2 (0.7-1.2) mg/dL Glucose 420 H (65-100) mg/dL Calcium 5.8 L* (8.4-10.2) mg/dL Adrenal panel 10/08/16 Range/Units 04:00 Sodium 134 L D (137-145) mmol/L Potassium 5.2 H D (3.6-5.0) mmol/L Chloride 102.5 (98-107) mmol/L Carbon Dioxide 19 L (22-30) mmol/L BUN 10 (7-17) mg/dL Creatinine 1.2 (0.7-1.2) mg/dL Glucose 420 H (65-100) mg/dL Calcium 5.8 L* (8.4-10.2) mg/dL
--- NOTE | 2016-10-08 11:43 | Progress Note ---
Assessment and Plan - Patient Problems (1) Acute renal failure Current Visit: Yes Status: Acute Qualifiers: Acute renal failure type: A Plan to address problem: most likely prerenal. S/P DKA. Non oliguric, renal function improving. Encourage oral hydration. Check ionised calcium, vit D level if not done. Suggest Calcium with vit D. Nutrition support. Check urine microalb/cr. Pt has significantly low Albumin with peripheral edema. Pt has uncontrolled DM with high [id number] at [place]. Surgery notes reviewed. 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 (3) Acute diarrhea Current Visit: Yes Status: Acute (4) Hypocalcemia Current Visit: No Status: Acute (5) Hypertension Current Visit: No Status: Chronic Qualifiers: Hypertension type: H (6) Hypomagnesemia Current Visit: Yes Status: Acute (7) Hypoalbuminemia Current Visit: Yes Status: Acute (8) Anemia Current Visit: No Status: Acute Qualifiers: Anemia type: A Iron deficiency anemia type: I Vitamin B12 deficiency anemia type: V Folate deficiency anemia type: F Bone marrow failure anemia type: B Hemolytic anemia type: H Other causes of anemia: O Subjective Date of service: 10/08/16 Principal diagnosis: tip Interval history: alert, oriented, C/O diarrhoea Objective - Vital Signs Vital signs: Vital Signs - 12hr 10/08/16 10/08/16 10/08/16 00:18 08:31 09:16 Temperature 98.9 F 98.7 F Pulse Rate [ 82 80 Right Radial] Respiratory 20 20 Rate Blood Pressure 160/98 Blood Pressure 145/75 160/98 [Right Arm] O2 Sat by Pulse 97 98 Oximetry - General Appearance General appearance: well-developed, obese EENT: mucous membranes moist Neck: no JVD Respiratory: Present: Decreased Breath Sounds Gastrointestinal: normoactive bowel sounds Musculoskeletal: other (1+ edema) Psychiatric: mood/affect appropriate, cooperative - Lab 10/07/16 05:13 10/08/16 04:00 Most recent lab results Calcium 5.8 mg/dL (8.4-10.2) L* 10/08/16 04:00 Phosphorus 14.5 mg/dL (2.5-4.5) H 09/30/16 17:13 Magnesium 1.20 mg/dL (1.7-2.3) L 10/07/16 05:13
--- NOTE | 2016-10-08 17:44 | Progress Note ---
Assessment and Plan 46 YO Female with HTN, Malnutrition, DM, Medication Noncompliance presents to ED for evaluation. Her BG was >500 on admission, admitted with DKA management. Continue to c/o abdominal pain N/V even after DKA resolved. GI was consulted, s/ p EGD on 10/06/16 showed errosive esophagitis, gastritis and duedenitis. HIDA scan on 10/06/16 showed biliary dyskinesia. It is getting difficult to control her BG, as she seems to be very sensitive to insulin. her BG was as low as 20s on 10/07, all regular and long acting insulin d/adrienne, today her BG at 400s. Hypoglycemia - resolved with D5 1/2 NS - cautious use of insulin SIRS - due to DKA, infectious etiology ruled out, culture is negative, chest x-ray and UA were negative. RUQ sono wnl DM type 2, uncontrolled - DKA has resolved - continue SSI to manage blood glucose - a1c 14.1 - will add 10 units novolog 70/30 in the am and 5 unit before dinner Dehydration/hypernatremia - resolved with iv fluid Toxic metabolic encephalopathy - Now resolved most likely due to DKA Acute kidney injury - Most likely due to vasomotor nephropathy, - Nephrology input appreciated, renal functions improved, - renal US showed medical renal disease Hypocalcemia - corrected and has improved Severe malnutrition - albumin is 2.3, dinkey engine mechanic consulted, encourage balanced diet - on ada diet now Abdomianl pain, Nausea vomiting - likely from PUD and biliary dyskinesia - RUQ US wnl, GI consulted, s/p EGD on 10/06/16, showed errosive esophagitis - had HIDA scan which is positive, surgery consulted but recommended no surgical intervention now - tolerating diet now Upper back cyst- - surgery input appreciated, epidermal inclusion cyst, not infected - can f/up as outpatient for excision Diarrhea - acute onset - will do stool study, monitor for now - has no fever or no elevated white count Subjective Date of service: 10/08/16 Principal diagnosis: tip Interval history: Patient seen and examined. Medical records and medication list reviewed. Patient denies any chest pain or difficulty breathing. BG above 400 this morning, k level improved c/o diarrhea Discussed plan of care at bedside with patient. Objective - Exam Narrative Exam: GENERAL: AA female lying on bed appeared to be in no discomfort. HEENT: Normocephalic. Atraumatic. No conjunctival congestion or icterus. Patient has moist mucous membranes. NECK: Supple. Trachea midline. CHEST/LUNGS: Clear to auscultated bilaterally, breathing nonlabored. No wheezes crackles or rhonchi. HEART/CARDIOVASCULAR: Regular in rate and rhythm. S1 and S2 positive. ABDOMEN: Abdomen is soft, nontender. Patient has normal bowel sounds. SKIN: There is no rash. Warm and dry. NEURO: No focal motor deficit. Follows command. MUSCULOSKELETAL: No joint effusion or tenderness. EXTRIMITY: No edema, no cyanosis or clubbing. PSYCH: Cooperative. - Constitutional Vitals: Vital Signs - 12hr 10/08/16 10/08/16 10/08/16 08:31 09:16 15:38 Temperature 98.7 F 98.0 F Pulse Rate [ 80 85 Right Radial] Respiratory 20 20 Rate Blood Pressure 160/98 Blood Pressure 160/98 163/102 [Right Arm] O2 Sat by Pulse 98 97 Oximetry - Labs CBC & Chem 7: 10/07/16 05:13 10/08/16 04:00 Labs: Abnormal lab results 10/07/16 10/08/16 10/08/16 Range/Units 21:34 04:00 05:17 Sodium 134 L D (137-145) mmol/L Potassium 5.2 H D (3.6-5.0) mmol/L Carbon Dioxide 19 L (22-30) mmol/L Glucose 420 H (65-100) mg/dL POC Glucose 175 H 412 H (70-105) Calcium 5.8 L* (8.4-10.2) mg/dL 10/08/16 10/08/16 Range/Units 12:20 16:49 Sodium (137-145) mmol/L Potassium (3.6-5.0) mmol/L Carbon Dioxide (22-30) mmol/L Glucose (65-100) mg/dL POC Glucose 116 H 67 L (70-105) Calcium (8.4-10.2) mg/dL
[2016-10-09 06:34] LABS: BUN/Creatinine Ratio 9.23; Calcium 6.7 mg/dL (8.4-10.2); Chloride 103.3 mmol/L (98-107); Potassium 4.9 mmol/L (3.6-5.0)
[2016-10-09] MEDS: NOVOLOG SUB-Q SCH ×4 (08:44→21:39)
[2016-10-09] MEDS: NS 0.45/KCL 20MEQ 20 MEQ/1,000 ML BAG IV SCH (08:45)
[2016-10-09] MEDS ORDERED: MAGNESIUM SULFATE IV ONE (09:58)
[2016-10-09] MEDS ORDERED: NACL 0.9% 1000 ML 1,000 ML IV SCH (10:00)
[2016-10-09] MEDS: LOPRESSOR PO SCH ×2 (10:41→22:10)
[2016-10-09] MEDS: PROTONIX PO SCH (10:41)
[2016-10-09] MEDS: HEPARIN SUB-Q SCH ×2 (10:42→21:16)
[2016-10-09] MEDS ORDERED: MAGNESIUM SULFATE 1 GM in NACL 0.9% 50 ML IV ONE (12:30)
--- NOTE | 2016-10-09 13:43 | Progress Note ---
Assessment and Plan Assessment: * Acute kidney injury secondary to prerenal azotemia vs underlying CKD * DKA * Hypernatremia, mild * Hypertension * Anemia * hypokalemia Plan: * Patient renal function seems to be stabilizing. * Her potassium is now 4.9. Shall discontinue potassium from her IV fluid. * Bicarbonate level is lower. Add sodium bicarbonate to her IV * follow up mag level * check corrected calcium * Tight glycemic control * Adjust medications for renal function * Avoid potential nephrotoxins Subjective Date of service: 10/09/16 Principal diagnosis: tip Interval history: Patient is comfortable today. Denies any shortness of breath. No nausea or vomiting. She however still has some diarrhea. Had 2 liquid bowel movements yesterday Objective - Vital Signs Vital signs: Vital Signs - 12hr 10/09/16 10/09/16 07:00 10:41 Temperature 98.8 F Pulse Rate [ 85 Right Radial] Respiratory 20 Rate Blood Pressure 143/72 Blood Pressure 143/72 [Right Arm] O2 Sat by Pulse 99 Oximetry - General Appearance General appearance: well-developed, well-nourished, appears stated age EENT: PERRL, mucous membranes moist Neck: no JVD, no thyromegaly, no carotid bruit, supple Respiratory: Present: Clear to Ascultation Cardiology: regular, normal heart rate Gastrointestinal: normal, normoactive bowel sounds - Lab 10/07/16 05:13 10/09/16 04:00 Most recent lab results Calcium 6.7 mg/dL (8.4-10.2) L D 10/09/16 04:00 Phosphorus 2.90 mg/dL (2.5-4.5) 10/09/16 04:00 Magnesium 1.20 mg/dL (1.7-2.3) L 10/07/16 05:13 Urine Creatinine 17.7 mg/dL (0.1-20.0) 10/08/16 Unknown Urine Total Protein 17 mg/dL (5-11.8) H 10/08/16 Unknown
[2016-10-09] MEDS ORDERED: NACL 0.45% 1000 ML 1,000 ML with SODIUM BICARBONATE 75 MEQ IV SCH (14:00)
--- NOTE | 2016-10-09 15:35 | Progress Note ---
Assessment and Plan 46 YO Female with HTN, Malnutrition, DM, Medication Noncompliance presents to ED for evaluation. Her BG was >500 on admission, admitted with DKA management. Continue to c/o abdominal pain N/V even after DKA resolved. GI was consulted, s/ p EGD on 10/06/16 showed errosive esophagitis, gastritis and duedenitis. HIDA scan on 10/06/16 showed biliary dyskinesia. Her symptom much improved and tolerating diet now. BG slightly improved today. Hypoglycemia - resolved with D5 1/2 NS - cautious use of insulin SIRS - due to DKA, infectious etiology ruled out, culture is negative, chest x-ray and UA were negative. RUQ sono wnl DM type 2, uncontrolled - DKA has resolved - continue SSI to manage blood glucose - a1c 14.1 - will continue 10 units novolog 70/30 in the am and will increaae to 8 units before dinner Dehydration/hypernatremia - resolved with iv fluid Toxic metabolic encephalopathy - Now resolved most likely due to DKA Acute kidney injury - Most likely due to vasomotor nephropathy, - Nephrology input appreciated, renal functions improved, - renal US showed medical renal disease Hypocalcemia - still low after replacement, will check Mg level Severe malnutrition - albumin is 2.3, inspector barrel consulted, encouraged balanced diet - on ada diet now Abdomianl pain, Nausea vomiting - likely from PUD and biliary dyskinesia - RUQ US wnl, GI consulted, s/p EGD on 10/06/16, showed errosive esophagitis - had HIDA scan which is positive, surgery consulted but recommended no surgical intervention now - tolerating diet now Upper back cyst- - surgery input appreciated, epidermal inclusion cyst, not infected - can f/up as outpatient for excision Diarrhea - acute onset but resolved now - has no fever or no elevated white count Subjective Date of service: 10/09/16 Principal diagnosis: tip Interval history: Patient seen and examined. Medical records and medication list reviewed. Patient denies any chest pain or difficulty breathing. No diarrhea today, BG improved today Discussed plan of care at bedside with patient. Objective - Exam Narrative Exam: GENERAL: AA female lying on bed appeared to be in no discomfort. HEENT: Normocephalic. Atraumatic. No conjunctival congestion or icterus. Patient has moist mucous membranes. NECK: Supple. Trachea midline. CHEST/LUNGS: Clear to auscultated bilaterally, breathing nonlabored. No wheezes crackles or rhonchi. HEART/CARDIOVASCULAR: Regular in rate and rhythm. S1 and S2 positive. ABDOMEN: Abdomen is soft, nontender. Patient has normal bowel sounds. SKIN: There is no rash. Warm and dry. NEURO: No focal motor deficit. Follows command. MUSCULOSKELETAL: No joint effusion or tenderness. EXTRIMITY: No edema, no cyanosis or clubbing. PSYCH: Cooperative. - Constitutional Vitals: Vital Signs - 12hr 10/09/16 10/09/16 07:00 10:41 Temperature 98.8 F Pulse Rate [ 85 Right Radial] Respiratory 20 Rate Blood Pressure 143/72 Blood Pressure 143/72 [Right Arm] O2 Sat by Pulse 99 Oximetry - Labs CBC & Chem 7: 10/07/16 05:13 10/09/16 04:00 Labs: Abnormal lab results 10/07/16 10/08/16 10/08/16 Range/Units 10:30 16:49 17:57 Carbon Dioxide (22-30) mmol/L Creatinine (0.7-1.2) mg/dL Glucose (65-100) mg/dL POC Glucose 67 L 121 H (70-105) Calcium (8.4-10.2) mg/dL Ionized Calcium 3.8 L (4.8-5.6) mg/dL Urine Total Protein (5-11.8) mg/dL 10/08/16 10/08/16 10/09/16 Range/Units 20:56 Unknown 04:00 Carbon Dioxide 18 L (22-30) mmol/L Creatinine 1.3 H (0.7-1.2) mg/dL Glucose 321 H (65-100) mg/dL POC Glucose 205 H (70-105) Calcium 6.7 L D (8.4-10.2) mg/dL Ionized Calcium (4.8-5.6) mg/dL Urine Total Protein 17 H (5-11.8) mg/dL 10/09/16 Range/Units 06:26 Carbon Dioxide (22-30) mmol/L Creatinine (0.7-1.2) mg/dL Glucose (65-100) mg/dL POC Glucose 381 H (70-105) Calcium (8.4-10.2) mg/dL Ionized Calcium (4.8-5.6) mg/dL Urine Total Protein (5-11.8) mg/dL
[2016-10-09] MEDS: APRESOLINE IV PRN (21:19)
[2016-10-09] MEDS ORDERED: CALCIUM GLUCONATE 2,000 MG in NACL 0.9% 100 ML IV ONE (23:34)
[2016-10-10 07:34] LABS: Anion Gap 19 mmol/L; Blood Urea Nitrogen 11 mg/dL (7-17); Calcium 7.2 mg/dL (8.4-10.2); Carbon Dioxide 19 mmol/L (22-30); Chloride 101.9 mmol/L (98-107); Glucose 352 mg/dL (65-100); Potassium 4.8 mmol/L (3.6-5.0); Sodium 135 mmol/L (137-145)
[2016-10-10] MEDS ORDERED: MAGNESIUM SULFATE IV ONE (09:06)
--- NOTE | 2016-10-10 09:07 | Progress Note ---
Assessment and Plan Assessment: * Acute kidney injury secondary to prerenal azotemia vs underlying CKD * DKA * Hypernatremia, mild * Hypertension * Anemia * hypokalemia Plan: * Patient's renal function is better * Her potassium is also normal at this time. Potassium from the IV fluid has been discontinued . * Bicarbonate level noted to be low. Add oral sodium bicarbonate and discontinue her IV fluid for now * mag level is 1.6 today. Shall replace * Her ionized calcium was 3.8 previously. Supplement calcium orally * That she was still noted to be elevated. Need tighter glycemic control * Avoid potential nephrotoxins * Shall follow PRN Subjective Date of service: 10/10/16 Principal diagnosis: tip Interval history: Patient continues to have some soft stools. Denies any nausea or vomiting. No shortness of breath. IV fluid currently not infusing Objective - Vital Signs Vital signs: Vital Signs - 12hr 10/09/16 10/09/16 10/09/16 21:19 22:00 22:10 Temperature Pulse Rate 90 90 Pulse Rate [ 80 Right Dorsalis Pedis] Respiratory Rate Blood Pressure 175/119 175/119 Blood Pressure [Right Arm] 10/10/16 07:00 Temperature 98.8 F Pulse Rate Pulse Rate [ 95 H Right Dorsalis Pedis] Respiratory 20 Rate Blood Pressure Blood Pressure 175/107 [Right Arm] - General Appearance General appearance: well-developed, well-nourished, appears stated age EENT: PERRL, mucous membranes moist Neck: no JVD, no thyromegaly, no carotid bruit, supple Respiratory: Present: Clear to Ascultation Cardiology: regular, normal heart rate Gastrointestinal: normal, normoactive bowel sounds Integumentary: no rash, warm and dry, other (trace edema) - Lab 10/07/16 05:13 10/10/16 04:00 Most recent lab results Calcium 7.2 mg/dL (8.4-10.2) L 10/10/16 04:00 Phosphorus 2.90 mg/dL (2.5-4.5) 10/09/16 04:00 Magnesium 1.60 mg/dL (1.7-2.3) L 10/10/16 04:00 Urine Creatinine 17.7 mg/dL (0.1-20.0) 10/08/16 Unknown Urine Total Protein 17 mg/dL (5-11.8) H 10/08/16 Unknown
[2016-10-10] MEDS ORDERED: MAGNESIUM SULFATE 2GM/50ML 2 GM/50 ML BAG IV ONE (09:08)
[2016-10-10] MEDS: NOVOLOG SUB-Q SCH ×3 (09:50→18:02)
--- NOTE | 2016-10-10 11:37 | Progress Note ---
Assessment and Plan 46 YO Female with HTN, Malnutrition, DM, Medication Noncompliance presents to ED for evaluation. Her BG was >500 on admission, admitted with DKA management. Continue to c/o abdominal pain N/V even after DKA resolved. GI was consulted, s/ p EGD on 10/06/16 showed errosive esophagitis, gastritis and duedenitis. HIDA scan on 10/06/16 showed biliary dyskinesia. Her symptom much improved and tolerating diet now. BG slightly improved today. Hypoglycemia - resolved with D5 1/2 NS - cautious use of insulin SIRS - due to DKA, infectious etiology ruled out, culture is negative, chest x-ray and UA were negative. RUQ sono wnl DM type 2, uncontrolled - DKA has resolved - continue SSI to manage blood glucose - a1c 14.1 - will change insulin to 12 units novolog 70/30 in the am and before dinner Dehydration/hypernatremia - resolved with iv fluid Toxic metabolic encephalopathy - Now resolved most likely due to DKA Acute kidney injury - Most likely due to vasomotor nephropathy, - Nephrology input appreciated, renal functions improved, - renal US showed medical renal disease Hypocalcemia and hypomagnasemia - still low, will replace Severe malnutrition - albumin is 2.3, dye colorist formulator consulted, encouraged balanced diet - on ADA diet now Abdomianl pain, Nausea vomiting - likely from PUD and biliary dyskinesia - RUQ US wnl, GI consulted, s/p EGD on 10/06/16, showed errosive esophagitis - had HIDA scan which is positive, surgery consulted but recommended no surgical intervention now - tolerating diet now Upper back cyst - surgery input appreciated, epidermal inclusion cyst, not infected - can f/up as outpatient for excision Diarrhea - acute onset but resolved now - has no fever or no elevated white count Subjective Date of service: 10/10/16 Principal diagnosis: tip Interval history: Patient seen and examined. Medical records and medication list reviewed. Patient denies any chest pain or difficulty breathing. No diarrhea today, BG improved today Discussed plan of care at bedside with patient. Objective - Exam Narrative Exam: GENERAL: AA female lying on bed appeared to be in no discomfort. HEENT: Normocephalic. Atraumatic. No conjunctival congestion or icterus. Patient has moist mucous membranes. NECK: Supple. Trachea midline. CHEST/LUNGS: Clear to auscultated bilaterally, breathing nonlabored. No wheezes crackles or rhonchi. HEART/CARDIOVASCULAR: Regular in rate and rhythm. S1 and S2 positive. ABDOMEN: Abdomen is soft, nontender. Patient has normal bowel sounds. SKIN: There is no rash. Warm and dry. NEURO: No focal motor deficit. Follows command. MUSCULOSKELETAL: No joint effusion or tenderness. EXTRIMITY: No edema, no cyanosis or clubbing. PSYCH: Cooperative. - Constitutional Vitals: Vital Signs - 12hr 10/10/16 07:00 Temperature 98.8 F Pulse Rate [ 95 H Right Dorsalis Pedis] Respiratory 20 Rate Blood Pressure 175/107 [Right Arm] - Labs CBC & Chem 7: 10/07/16 05:13 10/10/16 04:00 Labs: Abnormal lab results 10/09/16 10/09/16 10/10/16 Range/Units 17:03 21:21 04:00 Sodium 135 L (137-145) mmol/L Carbon Dioxide 19 L (22-30) mmol/L Glucose 352 H (65-100) mg/dL POC Glucose 60 L 261 H (70-105) Calcium 7.2 L (8.4-10.2) mg/dL Magnesium 1.60 L (1.7-2.3) mg/dL 10/10/16 Range/Units 06:39 Sodium (137-145) mmol/L Carbon Dioxide (22-30) mmol/L Glucose (65-100) mg/dL POC Glucose 395 H (70-105) Calcium (8.4-10.2) mg/dL Magnesium (1.7-2.3) mg/dL
[2016-10-10] MEDS: PROTONIX PO SCH (12:03)
[2016-10-10] MEDS: SODIUM BICARBONATE PO SCH ×2 (12:03→22:29)
[2016-10-10] MEDS: LOPRESSOR PO SCH ×2 (12:03→22:30)
[2016-10-10] MEDS: OSCAL PO SCH ×2 (12:03→22:37)
[2016-10-10] MEDS: HEPARIN SUB-Q SCH ×4 (12:04→22:39)
[2016-10-10] MEDS: D50W (25GM) IV PRN (21:16)
[2016-10-11] MEDS: TYLENOL PO PRN (02:42)
[2016-10-11] MEDS: APRESOLINE IV PRN (05:44)
[2016-10-11 08:28] LABS: Alanine Aminotransferase 12 units/L (7-56); Albumin 2.8 g/dL (3.9-5); Albumin/Globulin Ratio 1.3 %; Anion Gap 19 mmol/L; Bilirubin,Total < 0.20 mg/dL (0.1-1.2); Blood Urea Nitrogen 10 mg/dL (7-17); Calcium 7.7 mg/dL (8.4-10.2); Carbon Dioxide 22 mmol/L (22-30); Chloride 103.4 mmol/L (98-107); Glucose 57 mg/dL (65-100); Potassium 4.2 mmol/L (3.6-5.0); Sodium 140 mmol/L (137-145); Total Protein 4.9 g/dL (6.3-8.2)
[2016-10-11] MEDS: NOVOLOG SUB-Q SCH (09:00)
--- NOTE | 2016-10-11 09:21 | Progress Note ---
Subjective Date of service: 10/11/16 Principal diagnosis: tip Objective - Constitutional Vitals: Vital Signs - 12hr 10/10/16 10/11/16 10/11/16 22:30 00:25 05:44 Temperature 98.8 F Pulse Rate 104 H 88 Pulse Rate [ Right Dorsalis Pedis] Pulse Rate [ 101 H Right Radial] Respiratory 20 Rate Blood Pressure 166/98 177/92 Blood Pressure 169/87 [Right Arm] O2 Sat by Pulse 97 Oximetry 10/11/16 10/11/16 10/11/16 05:48 06:33 07:15 Temperature 98.5 F Pulse Rate Pulse Rate [ 88 105 H Right Dorsalis Pedis] Pulse Rate [ 99 H Right Radial] Respiratory 16 Rate Blood Pressure Blood Pressure 170/92 145/77 139/75 [Right Arm] O2 Sat by Pulse 97 Oximetry - Labs CBC & Chem 7: 10/07/16 05:13 10/11/16 05:30 Labs: Abnormal lab results 10/10/16 10/10/16 10/10/16 Range/Units 11:00 15:45 20:57 Glucose (65-100) mg/dL POC Glucose 339 H 152 H 44 L (70-105) Calcium (8.4-10.2) mg/dL Total Protein (6.3-8.2) g/dL Albumin (3.9-5) g/dL 10/10/16 10/11/16 10/11/16 Range/Units 21:40 05:30 06:28 Glucose 57 L (65-100) mg/dL POC Glucose 122 H 107 H (70-105) Calcium 7.7 L (8.4-10.2) mg/dL Total Protein 4.9 L (6.3-8.2) g/dL Albumin 2.8 L (3.9-5) g/dL
--- NOTE | 2016-10-11 09:29 | Discharge Summary ---
Providers - Providers Date of Admission: 09/30/16 16:52 Date of discharge: 10/11/16 Attending physician: JOSE TORRES 10/01/16 15:26 Consult to Physician [CONS] Routine Consulting Provider: RAMSES WAYNE Reason For Exam: ASHELY Place consult to:: rupinder lawson neph. Notified:: office Phone number called:: [phone] Was contact made?: Yes If yes, spoke with:: ellen Real called:: 15:43 Comment:: dr de to return call 10/03/16 15:10 Consult to Dietitian/Nutrition [CONS] Routine Physician Instructions: Reason For Exam: Reason for Consult: Malnutrition 10/04/16 16:53 Consult to Physician [CONS] Routine Consulting Provider: CORONA GARDNER Reason For Exam: upper back infected cyst Place consult to:: DR. GARDNER Notified:: [facility]ING SERVICES Phone number called:: [phone] Was contact made?: Yes If yes, spoke with:: PURVI Real called:: 05:10 Comment:: DR. GARDNER SPOKE [facility] [place]/05/16 12:32 Consult to Physician [CONS] Routine Consulting Provider: DEBORAH POWER Reason For Exam: intractable nausea and vomiting Place consult to:: DR. POWER Notified:: OFFICE Phone number called:: [phone] Was contact made?: Yes If yes, spoke with:: TARI Real called:: 12:48 Comment:: SIVA WATERMAN 10/06/16 16:02 Consult to Physician [CONS] Routine Consulting Provider: CHRISTI REBOLLEDO Reason For Exam: possible cholecystitis Place consult to:: on-call general surgeon//DR. REBOLLEDO Notified:: DR. REBOLLEDO Phone number called:: [phone] Was contact made?: Yes If yes, spoke with:: LEONEL Real called:: 17:00 Comment:: AMELIA NOTIFIED Primary care physician: RESIDENCY PROGRAM COORDINATOR Hospitalization Condition: Critical Pertinent studies: Abdominal US, HIDA scan, Renal US, CXR Procedures: EGD Hospital course: 46 YO Female with HTN, Malnutrition, DM, Medication Noncompliance presents to ED for evaluation. Her BG was >500 on admission, admitted with DKA management. Continue to c/o abdominal pain N/V even after DKA resolved. GI was consulted, s/ p EGD on 10/06/16 showed errosive esophagitis, gastritis and duedenitis. HIDA scan on 10/06/16 showed biliary dyskinesia. No intervention now as she is tolerating diet and her symptom resolved. She had couple hypoglycemic events and required further adjustment of the insulin dose. BG now improved with current insulin regimen. Discharged home in stable condition. Discharge Diagnosis and management: SIRS - due to DKA, infectious etiology ruled out, culture is negative, chest x-ray and UA were negative. RUQ sonogram normal DM type 2, uncontrolled - DKA has resolved - continued long acting and SSI to manage blood glucose - a1c 14.1 - insulin adjusted to 10 units novolog 70/30 in the am and before dinner Dehydration/hypernatremia - resolved with iv fluid Toxic metabolic encephalopathy - Now resolved most likely due to DKA Acute kidney injury - Most likely due to vasomotor nephropathy, - Nephrology input appreciated, renal functions improved, - renal US showed medical renal disease Hypocalcemia and hypomagnasemia - s/p iv replacement - will cont oral suppliment for calcium Severe malnutrition - albumin is 2.3, senior oracle adf developer consulted, encouraged balanced diet - on ADA diet now Abdomianl pain, Nausea vomiting - likely from PUD and biliary dyskinesia - RUQ US wnl, GI consulted, s/p EGD on 10/06/16, showed errosive esophagitis/ gastritis - had HIDA scan which is positive, surgery consulted but recommended no surgical intervention now - tolerating diet now Upper back cyst - surgery input appreciated, epidermal inclusion cyst, not infected - can f/up as outpatient for excision Diarrhea - acute onset but resolved now - has no fever or no elevated white count Hypoglycemic event - resolved with D5 1/2 NS - cautious use of insulin Disposition: DISCHARGED TO HOME OR SELFCARE Time spent for discharge: 32 minutes Core Measure Documentation - Palliative Care Palliative Care/ Comfort Measures: Not Applicable - Core Measures Any of the following diagnoses?: none Exam - Physical Exam Narrative exam: GENERAL: AA female lying on bed appeared to be in no discomfort. HEENT: Normocephalic. Atraumatic. No conjunctival congestion or icterus. Patient has moist mucous membranes. NECK: Supple. Trachea midline. CHEST/LUNGS: Clear to auscultated bilaterally, breathing nonlabored. No wheezes crackles or rhonchi. HEART/CARDIOVASCULAR: Regular in rate and rhythm. S1 and S2 positive. ABDOMEN: Abdomen is soft, nontender. Patient has normal bowel sounds. SKIN: There is no rash. Warm and dry. NEURO: No focal motor deficit. Follows command. MUSCULOSKELETAL: No joint effusion or tenderness. EXTRIMITY: No edema, no cyanosis or clubbing. PSYCH: Cooperative. - Constitutional Vitals: Temp Pulse Resp BP Pulse Ox 98.5 F 99 H 16 139/75 97 10/11/16 07:15 10/11/16 07:15 10/11/16 07:15 10/11/16 07:15 10/11/16 07:15 Plan Activity: no restrictions Weight Bearing Status: Non-Weight Bearing Diet: low cholesterol, diabetic Follow up with: CORONA GARDNER MD [Staff Physician] - 7 Days PRIMARY CARE, [Primary Care Provider] - 3-5 Days Prescriptions: Calcium Carbonate [Oscal] 1,250 mg PO BID #60 tablet Metoprolol [Lopressor TAB] 25 mg PO BID #60 tablet Pantoprazole [Protonix TAB] 40 mg PO QDAY #30 tablet
[2016-10-11] MEDS: HEPARIN SUB-Q SCH (10:31)
[2016-10-11] MEDS: PROTONIX PO SCH (10:32)
[2016-10-11] MEDS: LOPRESSOR PO SCH (10:32)
[2016-10-11] MEDS: OSCAL PO SCH (10:32)
[2016-10-11] MEDS: SODIUM BICARBONATE PO SCH (10:33)
[2016-10-11 12:25] LABS: Alkaline Phosphatase 204 units/L (35-129)
[2016-10-11] MEDS ORDERED: TRIPLE ANTIBIOTIC TP ONE (14:06)
[2016-10-11 15:55] LABS: Vitamin D, 25-OH, Total 8 ng/mL (30-100)
[2016-10-11 16:14] VITALS: BP 139/90
== END 2016-10-11 15:00 | disposition home or self-care (01) | DRG 637 ==
LOC: ED 14:22 → CC1 16:52 → 3A 10-04 16:04
PROVIDERS: ADMIT Internal Medicine; ATTEND Internal Medicine
PROC: 4A033R1 Measurement of Arterial Saturation, Peripheral, Percutaneous Approach (ICD-10-PCS; 2016-09-30)
PROC: 0DB68ZX Excision of Stomach, Via Natural or Artificial Opening Endoscopic, Diagnostic (ICD-10-PCS; principal; 2016-10-06)
DX: E13.10 Other specified diabetes mellitus with ketoacidosis without coma (principal); N17.0 Acute kidney failure with tubular necrosis; G92 Toxic encephalopathy; E43 Unspecified severe protein-calorie malnutrition; K22.10 Ulcer of esophagus without bleeding; R65.10 Systemic inflammatory response syndrome (SIRS) of non-infectious origin without acute organ dysfunction; E87.0 Hyperosmolality and hypernatremia; E13.649 Other specified diabetes mellitus with hypoglycemia without coma; I10 Essential (primary) hypertension; Z68.20 Body mass index [BMI] 20.0-20.9, adult; E86.0 Dehydration; D64.9 Anemia, unspecified; E83.51 Hypocalcemia; K31.84 Gastroparesis; E13.43 Other specified diabetes mellitus with diabetic autonomic (poly)neuropathy; K29.70 Gastritis, unspecified, without bleeding; K29.80 Duodenitis without bleeding; K82.8 Other specified diseases of gallbladder; E87.6 Hypokalemia; E13.65 Other specified diabetes mellitus with hyperglycemia; E83.42 Hypomagnesemia; E88.09 Other disorders of plasma-protein metabolism, not elsewhere classified; L72.0 Epidermal cyst; Z91.14 Patient's other noncompliance with medication regimen; Z83.3 Family history of diabetes mellitus; Z82.49 Family history of ischemic heart disease and other diseases of the circulatory system; Z72.89 Other problems related to lifestyle
CPT/HCPCS: 36415; 36600; 71010; 76705; 76770; 78227; 80048; 80053; 80074; 80202; 80307; 80320; 81001; 81025; 82010; 82140; 82306; 82330; 82550; 82570; 82803; 82805; 82962; 83036; 83735; 83930; 84100; 84156; 84165; 84443; 84550; 84703; 85007; 85025; 87040; 88305; 88342; 93005; 93010; 94640; 96361; 96365; 96366; 96375; 99291; A6250; A9537; G0480; J0360; J0610; J0780; J1644; J1815; J1818; J1956; J2270; J2405; J2543; J2704; J2765; J2805; J3370; J3475; J3480; J7030; J7040; J7042; J7070

== ENCOUNTER 2016-11-03 07:59 | Inpatient (IN) | payer OTHER ==
[2016-11-03] MEDS ORDERED: NACL 0.9% 1000 ML 0 ML ONE (08:06)
[2016-11-03] MEDS ORDERED: NACL 0.9% 1000 ML 1,000 ML IV ONE ×4 (08:15→12:07)
[2016-11-03] MEDS ORDERED: D50W (25GM) IV PRN ×2 (08:20→11:44)
[2016-11-03] MEDS ORDERED: HEPARIN 10,000 UNITS/10 ML ONE ×2 (08:21→08:33)
[2016-11-03] MEDS ORDERED: HEPARIN/NS 5000 UNIT/500ML(CATH LAB) 0 ML IR ONE (08:21)
[2016-11-03] MEDS ORDERED: NITROGLYCERIN SYRINGE 0 ML ONE (08:22)
[2016-11-03] MEDS ORDERED: CALAN ONE (08:22)
[2016-11-03] MEDS ORDERED: XYLOCAINE 2% INFILTRATI ONE (08:22)
[2016-11-03] MEDS ORDERED: NACL 0.9% 1000 ML 1,000 ML ONE (08:23)
[2016-11-03] MEDS ORDERED: SUBLIMAZE ONE (08:23)
[2016-11-03] MEDS ORDERED: VERSED ONE (08:23)
[2016-11-03] MEDS ORDERED: NACL 0.9% 0 ML ONE (08:23)
[2016-11-03] MEDS ORDERED: WATER FOR INJ (PF) 0 ML ONE (08:23)
[2016-11-03] MEDS ORDERED: AGGRASTAT DRIP (12.5 MG/250 ML) 0 MCG/0 ML BAG IV ONE (08:23)
[2016-11-03] MEDS ORDERED: ANGIOMAX IV ONE (08:24)
[2016-11-03] MEDS ORDERED: ATIVAN ONE (08:27)
[2016-11-03] MEDS ORDERED: HEPARIN/ 0.45% NACL-25,000 UNIT/500 ML 25,000 UNIT/500 ML BAG ONE (08:33)
[2016-11-03] MEDS ORDERED: KEPPRA 1,000 MG/NS 0.75% 100ML 1,000 MG/100 ML BAG IV ONE (08:34)
[2016-11-03 08:35] LABS: Mean Corpuscular HGB Conc 23 % (30-34); Mean Corpuscular Hemoglobin 29 pg (28-32); Platelet Count 418 K/mm3 (140-440); Red Blood Count 2.79 M/mm3 (3.65-5.03)
[2016-11-03] MEDS ORDERED: QUELICIN ONE (08:40)
[2016-11-03] MEDS ORDERED: ATIVAN IV ONE (08:41)
[2016-11-03 08:42] LABS: Hematocrit 34.8 % (30.3-42.9); Mean Corpuscular Volume 125 fl (79-97); Red Cell Distribution Width 23.3 % (13.2-15.2); White Blood Count 22.5 K/mm3 (4.5-11.0)
[2016-11-03] MEDS ORDERED: QUELICIN IV ONE (08:42)
[2016-11-03 08:44] LABS: INR 1.42 (0.87-1.13); Partial Thromboplastin Time 28.8 Sec. (24.2-36.6)
[2016-11-03 08:52] LABS: Creatine Kinase MB 1.2 ng/mL (0.0-4.0)
[2016-11-03 08:53] LABS: BUN/Creatinine Ratio 15.93; Calcium 8.6 mg/dL (8.4-10.2); Chloride 84.2 mmol/L (98-107)
[2016-11-03] MEDS ORDERED: ASPIRIN PR ONE (08:53)
[2016-11-03] MEDS ORDERED: SODIUM BICARBONATE IV ONE ×5 (08:54→12:39)
--- NOTE | 2016-11-03 08:59 | Emergency Department Report ---
HPI - General Chief Complaint: Hyperglycemia Time Seen by Provider: 11/03/16 08:54 - HPI HPI: This is a 46-year-old Afro-[place] female who is well-known to myself and this Hospital with a history of diabetes, diabetic ketoacidosis and medication noncompliance who presents to the emergency department today by EMS after friends found her unresponsive. Her blood sugar level by Accu-Chek in route was greater than 500 and critical. Patient is very ill-appearing and therefore is a poor historian. ED Past Medical Hx - Past Medical History Previous Medical History?: Yes Hx Hypertension: Yes Hx Congestive Heart Failure: No Hx Diabetes: Yes Hx Sickle Cell Disease: No Hx Asthma: No Hx COPD: No Hx HIV: No - Social History Smoking Status: Unknown if ever smoked - Medications Home Medications: Home Medications Medication Instructions Recorded Confirmed Last Taken Type Calcium Carbonate [Oscal] 1,250 mg PO BID #60 tablet 10/11/16 Unknown Rx Insulin NPH/Regular [NovoLIN 70/30] 10 unit SUB-Q BIDDIAB 30 Days 10/11/1609/30 Unknown Rx Metoprolol [Lopressor TAB] 25 mg PO BID #60 tablet 10/11/16 Unknown Rx Pantoprazole [Protonix TAB] 40 mg PO QDAY #30 tablet 10/11/16 Unknown Rx ED Review of Systems ROS: Stated complaint: SUGAR HIGH/FALL Other details as noted in HPI Comment: Unobtainable due to pts medical conditions Physical Exam - Physical Exam Vital Signs: Vital Signs 11/03/16 08:10 Pulse Rate 209 H Respiratory 20 Rate Blood Pressure 56/34 O2 Sat by Pulse 99 Oximetry Physical Exam: GENERAL: Patient is ill-appearing and unresponsive. HEENT: Normocephalic. Atraumatic. Pupils equal reactive to light bilaterally. Patient has moist mucous membranes. NECK: Supple. Trachea is midline. CHEST/LUNGS: Clear to auscultation. There is no respiratory distress noted. HEART/CARDIOVASCULAR: Regular. There is moderate tachycardia. There is no gallop rub or murmur. ABDOMEN: Abdomen is soft, nontender. Patient has normal bowel sounds. There is no abdominal distention. SKIN: There is no rash. There is no edema. There is no diaphoresis. NEURO: Patient is lethargic but will withdraw from painful stimuli and has an active gag reflex. GCS of 8 MUSCULOSKELETAL: There is no tenderness or deformity. There is no evidence of acute injury. ED Course Vital Signs 11/03/16 08:10 Pulse Rate 209 H Respiratory 20 Rate Blood Pressure 56/34 O2 Sat by Pulse 99 Oximetry - Reevaluation(s) Reevaluation #1: While the central line was being placed, the patient appeared to have a seizure. It stopped before Ativan was able to be given and the patient has some hypotension. The patient had a slight apneic episode but did have return of spontaneous respirations. However due to her altered state and some increased work of breathing, the patient was intubated for protection of airway and for respiratory failure. 11/03/16 08:59 - Consultations Consultation #1: After the EKG was obtained which shows signs of septal and anterior OK, a code STEMI was called. I spoke with the micro computer data processor, Dr. Mike gaitan, and sent him a copy of the EKGs. The patient was hypotensive. She appeared to have SVT and tachycardia but the EKG was picking up the T waves and "double counting". Therefore, despite the hypotension, it was not recommended by cardiology that the patient receive any defibrillation. He recommended central line placement, Levophed, hydration and repeat of the EKG. After the central line was placed and the patient was intubated, cardiology was bedside. EKG shows a resolution of the ischemic changes and STEMI and therefore the patient is not to be sent to the Tenter Frame Operator just yet. We are waiting for labs to return and if the troponin is elevated we will still consider a heparin drip. 11/03/16 08:56 - ABG Interpretation Ph: 6.897 PCO2: 30 PO2: 553 Bicarbonate: 5.9 Interpretation: metabolic acidosis - Central Line Placement Left Femoral Consent Obtained: emergent situation Time Out Performed: Yes MD Prep: mask, gloves Central Line Prep: Chlorhexidine scrub Local Anesthesia Used: Lidocaine 1% Amount of Anesthesia Used (mls): 2 Ultrasound Used for Placement: Yes Central Line Lumen Inserted: triple Bloods Obtained for Lab: Yes Central Line Position: good blood return, all ports aspirated, flus, sutured in place with nyl Dressing Applied: Tegaderm, sterile gauze/tape Patient Tolerated Procedure: well Complications: none Additional Comments: A first attempt was done without ultrasound in the right femoral region. There was good venous blood flow into the syringe and I have a high confidence level that I was in the femoral vein, however the guidewire would not feed very well. The patient appears to have multiple right femoral CVC placed in the past and there is a high suspicion for vascular scarring. For this reason a pressure dressing was placed and the procedure was changed to the left femoral vein. - Intubation Time Out Performed: Yes Sedative: other (ativan) Mg Given: 2 Paralytic: Succinylcholine Mg Given: 50 Laryngoscope: fiberoptic video scope Size: 3 ET Tube Size: 7.5 Tube Secured Depth (cm): 22 Tube Secured Location: lips Tube Placement Confirmation: visualized tube passing t, equal breath sounds bilat, no breath sounds over epi Patient Tolerated Procedure: well Intubation Complications: none ED Medical Decision Making - Lab Data Result diagrams: 11/03/16 08:25 11/03/16 11:45 - EKG Data -: EKG Interpreted by Me EKG shows normal: sinus rhythm (with PVCs, bigeminy), axis, intervals, QRS complexes (incomplete right bundle branch block, right ventricular hypertrophy) , ST-T waves (ST depressions in the septal and anterior leads, ST depressions to the lateral leads concerning for acute anteroseptal OK) Rate: tachycardia (208 bpm -although this does not correlate and it appears as if the rate is 104 ) - EKG Data When compared to previous EKG there are: previous EKG unavailable Interpretation: acute OK Repeat EKG done at 8:47 AM shows sinus tachycardia at 114 bpm, normal axis, prolonged QTc interval and nonspecific ST-T changes. The previous ST elevation OK and/or ischemic changes have resolved. 11/03/16 11:08 - Radiology Data Radiology results: image reviewed interpreted by me: Chest x-ray shows appropriate placement of the ET tube but otherwise no acute process. - Medical Decision Making This is a 46-year-old female presents to the emergency department unresponsive. She is well-known to myself and this department for her medication noncompliance and history of recurrent diabetic ketoacidosis. The patient had a critical blood sugar by EMS greater than 500. Since she got to the emergency department she had an EKG that appear to be consistent with a anterior septal OK. A code STEMI was called at this point. The micro computer data processor was able to take a look at the EKG and listen to the presentation and recommended holding off on lab clerk and instead treating her hypotension with pressors. The first EKG also appeared to be very tachycardic but the patient had bigeminy and it did not correlate with her pulse. A central line was placed and patient was started on Levophed. Around this time the patient had a seizure but the seizure activity stopped prior to giving any benzodiazepine's. She had a transient apneic episode. Along with her altered mental status we decided to intubate her. There was no sustained hypoxia or any obvious Complications from the intubation. Labs have been drawn and started to come back with multiple abnormalities. She has a leukocytosis, severe metabolic acidosis, blood sugar greater than 1000, lactic acidosis, renal insufficiency, hyperkalemia. Around this time, cardiology returned and we repeated the EKG which showed a resolution of these ischemic changes and previous concern for OK. Patient along her was considered for the Tenter Frame Operator. Due to the hyperkalemia with potassium 9.4, I spoke with Dr. Siddiqui, nephrology. She recommended giving the insulin drip treatment, and extra sodium bicarbonate amp and repeating the potassium level. If it was still elevated, then she would consider Vas-Cath placement and dialysis. However the potassium started coming down to about 7 and currently is at 3.9 and the patient does not require any dialysis. However she is still critically ill and will be admitted to the ICU and has been accepted for admission by the hospitalist. - Differential Diagnosis diabetic ketoacidosis, HHNK, seizures, CVA, substance abuse Critical Care Time: Yes Critical care time in (mins) excluding proc time.: 50 Critical care attestation.: If time is entered above; I have spent that time in minutes in the direct care of this critically ill patient, excluding procedure time. Critical care time was spent on this patient due to her initial evaluation, multiple re-evaluations , ordering and interpretation of labs and imaging, medication administration, multiple discussions with cardiology, consultation with nephrology, and disposition planning. This does not include the procedure time spent on doing the patient's central line placement and intubation. ED Disposition Clinical Impression: Lactic acidosis, Metabolic encephalopathy, Hyperkalemia, Seizures DKA (diabetic ketoacidoses) Qualifiers: Diabetes mellitus type: type 1 Diabetes mellitus complication detail: with coma Qualified Code(s): E10.11 - Type 1 diabetes mellitus with ketoacidosis with coma Altered mental status Qualifiers: Altered mental status type: unspecified Qualified Code(s): R41.82 - Altered mental status, unspecified Respiratory failure Qualifiers: Chronicity: acute Respiratory failure complication: unspecified whether with hypoxia or hypercapnia Qualified Code(s): J96.00 - Acute respiratory failure, unspecified whether with hypoxia or hypercapnia Disposition: OP ADMITTED IP TO THIS HOSP Is pt being admited?: Yes Condition: Critical Time of Disposition: 10:30
[2016-11-03 09:00] LABS: Potassium 9.4 mmol/L (3.6-5.0)
[2016-11-03] MEDS ORDERED: LEVOPHED DRIP 4 MG/NS 250 ML 4 MG/250 ML BAG IV SCH (09:00)
[2016-11-03] MEDS: NovoLIN R 100 UNITS in NACL 0.9% 99 ML IV SCH ×3 (09:02→21:04)
[2016-11-03] MEDS ORDERED: KIONEX PO ONE (09:07)
[2016-11-03] MEDS ORDERED: PROVENTIL IH ONE (09:07)
[2016-11-03] MEDS ORDERED: CALCIUM CHLORIDE IV ONE (09:07)
[2016-11-03 09:09] LABS: Magnesium 3.4 mg/dL (1.7-2.3); Phosphorous 18.7 mg/dL (2.5-4.5)
--- NOTE | 2016-11-03 09:09 | Admit Criteria Form ---
Admission Criteria Documentation: SEVERE SEPSIS Clinical Indications for Admission to Inpatient Care (Place 'X' for any and all applicable criteria): Hospital admission is needed for appropriate care of the patient because of ANY ONE of the following: [X]I. Hemodynamic instability indicated by ANY ONE of the following(1)(2)(3)( 4)(5): [X]a. Vital sign abnormality not readily corrected by appropriate treatment within 12 to 24 hours indicated by ANY ONE of the following: []i) Tachycardia that persists despite appropriate treatment [X]ii) Hypotension that persists despite appropriate treatment []iii) Orthostatic vital sign changes that persist despite appropriate treatment [X]b. Vital sign abnormality that is severe indicated by ANY ONE of the following: [X]i. Inadequate perfusion indicated by ANY ONE of the following: [X]1) Lactic acidosis (greater than 2 mmol/L) []2) New abnormal capillary refill (greater than 3 seconds) []3) Reduced urine output []4) New altered mental status []5) Myocardial Ischemia []ii. Mean arterial pressure [A] less than 60 mm Hg []iii. Mean arterial pressure[A] less than 70 mm Hg after 30 minutes of appropriate treatment (eg, fluid resuscitation) []iv. Sustained heart rate greater than 120 beats per minute in adult []v. IV inotropic or vasopressor medication required to maintain adequate blood pressure or perfusion [X]II. Systemic or infectious condition causing severe symptoms or findings not responsive to emergency or observation care treatment (as appropriate) indicated by ANY ONE of the following: []a. Cardiac arrhythmias of immediate concern(1)(2)(3) []b. Severe endocrine disorder (eg, thyrotoxicosis, adrenal insufficiency)(4)(5) []c. Seizures (eg, new or recurrent)(6) [X]d. New-onset end organ failure or dysfunction as indicated by ANY ONE of the following: []i. Acute unexplained hypoxemia (eg, not from lung infection or chronic disease)(7)(8)(9) [X]ii.Acute renal failure as indicated by new onset of ANY ONE of the following(10)(11)(12)(13)(14): [X]1) 3-fold rise in serum creatinine from baseline []2) Serum creatinine greater than 4 mg/dL (354 micromoles/L) with acute rise greater than 0.5 mg/dL (44.2 micromoles/L) []3) Reduction of more than 75% in estimated glomerular filtration rate from baseline. []4) Estimated glomerular filtration rate less than 35 mL/min/1.73m2 ( 0.59 mL/sec/1.73m2) in child younger than 18 years. []5) Cessation of urine output indicated by ALL of the following: []A. Adequate volume status []B. Inadequate urine output as indicated by ANY ONE of the following: []a. Urine output less than 0.3 mL/kg/hr for 24 hours []b. Anuria (urine output less than 0.1 mL/kg/hr) for 12 hours []iii. Acute mental status changes(15) []iv. Acute hepatic failure (eg, plasma bilirubin greater than 4 mg/ dL (68 micromoles/L), new INR greater than 2.0)(16)(17) []e. Unmanageable nausea and vomiting(18) []f. New-onset or uncontrolled central diabetes insipidus(19)(20) []g. Clinically significant dehydration(18)(21) []h. Hypoglycemia(22) [X]i. Acidosis (pH less than 7.35) or alkalosis (pH greater than 7.45)( 22)(23) []j. Toxic drug level that indicates need for specific monitoring or treatment(24)(25) [X]k. Severe electrolyte abnormalities indicated by ALL of the following (1)(2)(3): [X]i. Electrolytes and associated findings are not as expected for patient baseline or acceptable treatment effects. []ii. Severe abnormalities indicated by ANY ONE of the following: []1) Sodium less than 130 mEq/L (mmol/L) (new) []2) Sodium less than 135 mEq/L (mmol/L) with ANY ONE of the following: []A. Uncorrectable (to near normal or chronic baseline) after trial of outpatient and emergency treatment []B. Altered mental status []C. Seizures []D. Severe medical etiology requiring inpatient management (eg , heart failure, hypovolemia) []3) Sodium greater than 155 mEq/L (mmol/L) []4) Sodium greater than 150 mEq/L (mmol/L) with ANY ONE of the following: []A. Uncorrectable (to near normal or chronic baseline) with outpatient and emergency treatment []B. Altered mental status []C. Seizures []D. Severe medical etiology (eg, hypovolemia, diabetes insipidus) []5) Potassium less than 2.5 mEq/L (mmol/L) despite outpatient and emergency treatment []6) Potassium less than 3 mEq/L (mmol/L) with ANY ONE of the following : []A. Weakness []B. Cardiac abnormality (eg, arrhythmia, conduction disturbance ) []C. Cardiac ischemia []D. Ileus []E. Ongoing medical cause requiring inpatient management (eg, acute renal wasting or SIADH) []F. Other severe symptoms [X]7) Potassium greater than 6.5 mEq/L (mmol/L) []8) Potassium greater than 5 mEq/L (mmol/L) with ANY ONE of the following: []A. Uncorrectable (to near normal or chronic baseline) with outpatient and emergency treatment []B. Severe ECG findings[A] []C. Acute worsening of renal failure (creatinine greater than 2.5 mg/dL (221 micromoles/L) or significant elevation for age and size) []D. Severe weakness []E. Severe medical etiology (eg, hemolysis, infection, drug overdose) []9) Calcium less than 7 mg/dL (1.75 mmol/L) despite outpatient and emergency treatment(5) []10) Calcium less than 8 mg/dL (2 mmol/L) with significant symptoms or findings (eg, altered mental status, muscle spasms, seizures, breathing difficulty, cardiac abnormality (eg, arrhythmia or conduction disturbance))(5) []11) Calcium greater than 14 mg/dL (3.5 mmol/L)(5) []12) Calcium greater than 12 mg/dL (3 mmol/L) with ANY ONE of the following(5): []A. Uncorrectable (to near normal or chronic baseline) with outpatient and emergency treatment []B. Significant dehydration or hypovolemia as indicated by ALL of the following(3)(6)(7): []a. Not resolved with initial treatments []b. Clinically significant dehydration as indicated by ANY ONE of the following: [](1) Vomiting refractory to outpatient treatment (ie, precluding oral rehydration) [](2) Inability to drink [](3) Hypernatremia or other electrolyte abnormality unable to be corrected with outpatient and emergency treatment [](4) Failure to remain hydrated with outpatient therapy [](5) Reduced urine output [](6) Hypotension [](7) Serious cause for dehydration requiring acute hospitalization ( eg, bowel obstruction, increased intracranial pressure, infectious cause) [](8) Child with ANY ONE of the following(8): [](i) Severe abdominal tenderness [](ii) Adequate care not available at home [](iii) Severe dehydration (greater than 9% loss of body weight) []C. Significant symptoms or findings (eg, altered mental status , cardiac abnormality (eg, arrhythmia, conduction disturbance), malignant etiology requiring inpatient treatment) []13) Phosphorus less than 1 mg/dL (0.32 mmol/L) []14) Phosphorus less than 1.5 mg/dL (0.48 mmol/L) with ANY ONE of the following: []A. Patient unresponsive to outpatient and emergency treatment []B. Significant symptoms or findings (eg, weakness, altered mental status, breathing difficulty, seizures, rhabdomyolysis) []15) Phosphorus greater than 10 mg/dL (3.2 mmol/L) []16) Phosphorus greater than 4.5 mg/dL (1.45 mmol/L) (new) with ANY ONE of the following: []A. Severe medical etiology (eg, crush injury, acute renal failure) []B. Associated hypocalcemia with significant findings (eg, neurologic symptoms, altered mental status, muscle spasms, seizures, breathing difficulty, cardiac abnormality (eg, arrhythmia, conduction disturbance)) []16) Magnesium less than 1 mg/dL (0.41 mmol/L) []17) Magnesium less than 1.5 mg/dL (0.62 mmol/L) with ANY ONE of the following: []A. Patient unresponsive to outpatient and emergency treatment []B. Associated hypocalcemia with significant findings (eg, altered mental status, muscle spasms, seizures, breathing difficulty, cardiac abnormality (eg, arrhythmia, conduction disturbance)) []C. Associated hypokalemia (potassium less than 3 mEq/L (mmol/L )) with risk of arrhythmia []18) Magnesium greater than 4 mEq/L (2 mmol/L) []19) Magnesium greater than 2.5 mEq/L (1.25 mmol/L) with significant symptoms or findings (eg, weakness, altered mental status, cardiac abnormality (eg, arrhythmia, conduction disturbance), breathing difficulty, severe medical etiology (eg, renal failure, hypovolemia)) []20) Uric acid greater than 20 mg/dL (1190 micromoles/L)(9) []21) Uric acid greater than 8 mg/dL (476 micromoles/L) with significant symptoms or findings of tumor lysis syndrome (eg, creatinine greater than 1.5 times upper limit of normal, cardiac abnormality (eg , arrhythmia, conduction disturbance), seizure)(9) []III. High fever or other high-risk infection situation as indicated by ANY ONE of the following(26)(27)(28): []a. Outpatient and observation care antimicrobial treatment unavailable, not effective, or not appropriate []b. Documented bacteremia []c. Temperature greater than 104.9 degrees F (40.5 degrees C) (oral) []d. Temperature greater than 103.1 degrees F (39.5 degrees C) (oral) or less than 96.8 degrees F (36 degrees C) (rectal) that does not respond to emergency treatment and observation care []IV. High-risk febrile neutropenia[A] as indicated by ANY ONE of the following(29)(30)(31)(32): []a. Profound neutropenia[B] anticipated to extend for more than 7 days []b. Hemodynamic instability []c. Hypoxemia []d. Tachypnea []e. Altered mental status []f. New-onset abdominal pain []g. New-onset vomiting or diarrhea []h. Oral or gastrointestinal mucositis that interferes with swallowing or causes severe diarrhea []i. Focal infection (eg, cellulitis, pneumonia, central line or catheter infection, perirectal abscess) []j. Renal insufficiency (eg, GFR of less than 30 mL/min/1.73m2 (0.5 mL/sec /1.73m2)). []k. Severe liver dysfunction (transaminase levels greater than 5 times normal) []l. Platelet count less than 50,000/mm3 (50 x109/L)(33) []m. Leukemia or lymphoma induction therapy []n. Leukemia not in complete remission or with evidence of disease progression []o. Bone marrow transplant patient []p. Alemtuzumab being used for therapy []q. [employer] Supportive Care in Cancer (MASCC) Risk Index score of less than 21[C](33)(35). []V. Isolation required (eg, tuberculosis that requires isolation, Ebola infection)[D](36)(37)(38)(39)(40) []. Gangrene that requires treatment beyond emergency or observation level care(41)(42) []VII. Antitoxin administration and ongoing observation required (eg, tetanus, botulism)(43)(44) []. Suspected infection with rapid progression or severe symptoms as indicated by ANY ONE of the following(45): []a. Streptococcal or staphylococcal toxic shock(46) []b. Diphtheria(47) []c. Hantavirus(48) []d. Severe acute respiratory syndrome(8)(49) []e. Anthrax(50) []f. Ebola[D](36)(37)(38) []g. Necrotizing soft tissue infection(41)(42) []h. Plague(50) []i. Other suspected infection that requires care beyond emergency or observation level care []VII. Severe adverse drug or systemic toxin reaction as indicated by ANY ONE of the following(24): []a. Serotonin syndrome(51)(52) []b. Neuroleptic malignant syndrome(51)(52) []c. Cholinergic syndrome with severe symptoms (eg, bronchorrhea, weakness , mental status changes, seizures)(53) []d. Anticholinergic syndrome []e. Sympathetic syndrome with severe symptoms (eg, seizures, mental status changes, cardiac dysrhythmias) []f. Other severe adverse drug or systemic toxin reaction that remains after emergency or observation level care (as appropriate) []VIII. Allergic reaction with severe symptoms (not responsive to emergency or observation care treatment as appropriate), including ANY ONE of the following(54): []a. Airway edema (pharyngeal, epiglottic, or laryngeal edema) []b. Stridor []c. Respiratory failure []d. Bronchospasm []e. Hypotension []IX. Environmental emergency (not responsive to emergency or observation care treatment as appropriate) as indicated by ANY ONE of the following(55)(56): []a. Hyperthermia []b. Heat stroke []c. Heat exhaustion []d. Hypothermia (temperature less than 95 degrees F (35 degrees C) rectal) (57) []e. Electrocution(58) []X. Complications of transplanted organ (ie, not covered elsewhere)[E] indicated by ANY ONE of the following(59): []a. Acute graft rejection (or graft vs. host disease)[F] requiring inpatient management (eg, intravenous immunosuppression)(60)(61)(62)( 63) []b. Acute failure of transplanted organ necessitating inpatient care (eg, cannot be managed in other setting) []c. Infection requiring inpatient management (eg, Hemodynamic instability, need for intravenous antimicrobial treatment)(64)(65) []d. Other complication of transplanted organ requiring inpatient management []XI. Systemic or Infectious Condition condition, symptom, or finding for which emergency and observation care have failed or are not considered appropriate. See General Criteria: Observation Care, General Admission Criteria or Pediatric General Admission Criteria guideline as appropriate. (Contents from SEVERE SEPSIS and SYSTEMIC OR INFECTIOUS CONDITION clinical indications for admission to inpatient care have been integrated in this form) The original [facility] content created by [facility] has been revised. The portions of the content which have been revised are identified through the use of italic text or in bold and [facility] has neither reviewed nor approved the modified material. All other unmodified content is copyright [facility]. Please see references footnoted in the original [facility] edition 2016 Admission Criteria Met: Yes
[2016-11-03 09:14] LABS: ISTAT Base Excess -27; ISTAT HCO3 5.9; ISTAT PCO2 30.2 (35-45); ISTAT PH 6.897 (7.35-7.45); ISTAT PO2 553 (80-105); ISTAT SO2 100; ISTAT TCO2 7
[2016-11-03] MEDS: MIDAZOLAM 100 MG in NACL 0.9% 80 ML IV SCH (10:15)
--- NOTE | 2016-11-03 10:19 | XRay Report ---
AP CHEST: HISTORY: Endotracheal tube placement An endotracheal tube has been inserted which terminates 2.5 cm superior to the geronimo. AP view of the chest demonstrates a normal mediastinal and cardiac contour with clear lungs and normal bony and soft tissue structures. IMPRESSION: Unremarkable AP chest. Adequate endotracheal tube placement. No significant change since 10/01/16.
[2016-11-03 10:31] LABS: Anisocytosis 2+; Basophils % (Manual) 0 % (0.0-1.8); Blastocytes % (Manual) 0 %; Eosinophils % (Manual) 0 % (0.0-4.3); Macrocytosis 2+
[2016-11-03 10:32] LABS: Diff Status Complete
[2016-11-03 10:49] LABS: BUN/Creatinine Ratio 15.33; Calcium 7.3 mg/dL (8.4-10.2); Chloride 94.1 mmol/L (98-107)
[2016-11-03 10:53] LABS: Potassium 7.3 mmol/L (3.6-5.0)
[2016-11-03] MEDS ORDERED: CALCIUM GLUCONATE 1,000 MG in NACL 0.9% 100 ML IV ONE (11:30)
[2016-11-03 11:35] LABS: Cholesterol 193 mg/dL (50-199); HDL Cholesterol 25 mg/dL (40-59); LDL Cholesterol,Direct TNR mg/dL (50-130); Triglycerides 613 mg/dL (2-149)
[2016-11-03] MEDS ORDERED: DULCOLAX PR PRN (11:44)
[2016-11-03] MEDS ORDERED: VANCOMYCIN VIAL 1,000 MG in NACL 0.9% 500 ML 500 ML IV ONE (11:44)
[2016-11-03] MEDS ORDERED: MILK OF MAGNESIA PO PRN (11:44)
[2016-11-03] MEDS ORDERED: ALUM-MAG HYDROX-SIMETH 200-200-20MG/5ML PO PRN (11:44)
[2016-11-03] MEDS ORDERED: ZOSYN/NS 4.5GM/100ML 4.5 GM/100 ML VIAL IV SCH (12:00)
[2016-11-03] MEDS ORDERED: VANCOMYCIN PHARMACY TO DOSE IV SCH (12:00)
[2016-11-03] MEDS ORDERED: NACL 0.9% 1000 ML IV ONE (12:00)
[2016-11-03] MEDS ORDERED: NovoLIN R 100 UNITS in NACL 0.9% 99 ML IV SCH (12:00)
--- NOTE | 2016-11-03 12:00 | History and Physical Report ---
History of Present Illness Chief complaint: Found down, unresponsive History of present illness: 46 YO Female with DM, HTN, Malnutrition, GERD, Medication Noncompliance presents to ED for evaluation. Pt found down and unresponsive by a friend who subsequently notified EMS. EMS transported pt to [facility] for evaluation and treatment. Pt found to be in DKA with serum glucose above 1000, as well as acute respiratory failure, and Septic Shock. Pt intubated in ED and placed on vent support as well as pressor support. Pt unable to provide history, but history taken from ED staff and medical records. Past History Past Medical History: diabetes, GERD, hypertension Past Surgical History: No surgical history, Other (reviewed) Social history: single. denies: smoking, alcohol abuse, prescription drug abuse Family history: diabetes, hypertension Medications and Allergies Allergies Allergy/AdvReac Type Severity Reaction Status Date / Time No Known Allergies Allergy Verified 03/26/14 03:17 Home Medications Medication Instructions Recorded Confirmed Last Taken Type Calcium Carbonate [Oscal] 1,250 mg PO BID #60 tablet 10/11/16 Unknown Rx Insulin NPH/Regular [NovoLIN 70/30] 10 unit SUB-Q BIDDIAB 30 Days 10/11/1609/30 Unknown Rx Metoprolol [Lopressor TAB] 25 mg PO BID #60 tablet 10/11/16 Unknown Rx Pantoprazole [Protonix TAB] 40 mg PO QDAY #30 tablet 10/11/16 Unknown Rx Active Meds: Active Medications Al Hydrox/Mg Hydrox/Simethicone (Alum-Mag Hydrox-Simeth [id number]/5ml) 30 ml PO Q4H PRN PRN Reason: Indigestion Bisacodyl (Dulcolax) 10 mg ND QDAY PRN PRN Reason: constipation unrelieved by MOM Dextrose (D50w (25gm)) 0 ml IV PRN PRN PRN Reason: Hypoglycemia Dextrose (D50w (25gm)) 0 ml IV PRN PRN PRN Reason: Hypoglycemia Dextrose (D50w (25gm)) 0 ml IV ONCE PRN PRN Reason: Hypoglycemia Heparin Sodium (Porcine) (Heparin) 5,000 unit SUB-Q Q12HR ULI Sodium Chloride (Nacl 0.9% 1000 Ml) 1,000 mls @ 42 mls/hr IV ONCE ONE Stop: 11/04/16 08:03 Last Admin: 11/03/16 08:26 Dose: Not Given Insulin Human Regular 100 (units/ Sodium Chloride) 100 mls @ 1 mls/hr IV TITR ULI; 1 UNITS/HR PRN Reason: Protocol Last Titration: 11/03/16 10:02 Dose: 8 units/hr, 8 mls/hr Norepinephrine (Levophed Drip 4 Mg/Ns 250 Ml) 4 mg in 250 mls @ 7.5 mls/hr IV TITR ULI; 2 MCG/MIN PRN Reason: Protocol Last Titration: 11/03/16 11:35 Dose: 4 mcg/min, 15 mls/hr Midazolam HCl 100 mg/ Sodium (Chloride) 100 mls @ 2 mls/hr IV TITR ULI; 2 MG/HR PRN Reason: Protocol Last Titration: 11/03/16 11:49 Dose: 5 mg/hr, 5 mls/hr Levofloxacin/Dextrose (Levaquin 750mg/150ml) 750 mg in 150 mls @ 100 mls/hr IV Q24HR ULI PRN Reason: Protocol Insulin Human Regular 100 (units/ Sodium Chloride) 100 mls @ 1 mls/hr IV TITR ULI; 1 UNITS/HR PRN Reason: Protocol Insulin Human Regular 100 (units/ Sodium Chloride) 100 mls @ 1 mls/hr IV TITR ULI; 1 UNITS/HR PRN Reason: Protocol Vancomycin HCl 1,000 mg/ (Sodium Chloride) 500 mls @ 334 mls/hr IV ONCE ONE PRN Reason: Protocol Stop: 11/03/16 13:13 Piperacillin Sod/Tazobactam Sod (Zosyn/Ns 4.5gm/100ml) 4.5 gm in 100 mls @ 200 mls/hr IV Q6HR ULI PRN Reason: Protocol Magnesium Hydroxide (Milk Of Magnesia) 30 ml PO Q4H PRN PRN Reason: Constipation Sodium Chloride (Nacl 0.9% 1000 Ml) 1,500 ml 30 ml/kg (1500 ml) IV ONCE ONE Stop: 11/03/16 11:45 Vancomycin HCl (Vancomycin Pharmacy To Dose) 1 each IV PKCONSULT ULI PRN Reason: Protocol Review of Systems ROS unobtainable: due to mental status Exam - Constitutional Vitals: Temp Pulse Resp BP Pulse Ox 95.0 F L 133 H 22 119/60 100 11/03/16 09:08 11/03/16 10:26 11/03/16 10:26 11/03/16 10:10 11/03/16 10:10 General appearance: Present: severe distress - EENT Eyes: Present: PERRL ENT: hearing intact, clear oral mucosa - Neck Neck: Present: supple, normal ROM - Respiratory Respiratory effort: labored Respiratory: bilateral: diminished - Cardiovascular Rhythm: regular - Extremities Extremities: pulses symmetrical, No edema Peripheral Pulses: abnormal (Capillary refill: greater than 3.5 seconds) - Abdominal General gastrointestinal: Present: soft, non-tender, non-distended, normal bowel sounds Female genitourinary: Present: normal - Integumentary Integumentary: Present: clear, dry, decreased turgor - Musculoskeletal Musculoskeletal: generalized weakness - Psychiatric Psychiatric: no intact judgment & insight, no memory intact - Neurologic Neurologic: no gait normal Results - Labs CBC & Chem 7: 11/03/16 08:25 11/03/16 11:45 Labs: Abnormal lab results 11/03/16 11/03/16 11/03/16 Range/Units 08:18 08:25 08:25 WBC (4.5-11.0) K/mm3 RBC (3.65-5.03) M/mm3 Hgb (10.1-14.3) gm/dl MCV (79-97) fl MCHC (30-34) % RDW (13.2-15.2) % Seg Neuts % (Manual) (40.0-70.0) % Lymphocytes % (Manual) (13.4-35.0) % Seg Neutrophils # Man (1.8-7.7) K/mm3 Monocytes # (Manual) (0.0-0.8) K/mm3 PT 17.3 H (12.2-14.9) Sec. INR 1.42 H (0.87-1.13) D-Dimer 2416.88 H (0-234) ng/mlDDU POC ABG pH (7.35-7.45) POC ABG pCO2 (35-45) POC ABG pO2 (80-105) VBG pH 6.811 L* (7.320-7.420) Sodium (137-145) mmol/L Potassium (3.6-5.0) mmol/L Chloride (98-107) mmol/L Carbon Dioxide (22-30) mmol/L BUN (7-17) mg/dL Creatinine (0.7-1.2) mg/dL Glucose (65-100) mg/dL POC Glucose > 500 H (70-105) Lactic Acid (0.7-2.0) mmol/L Calcium (8.4-10.2) mg/dL Phosphorus (2.5-4.5) mg/dL Magnesium (1.7-2.3) mg/dL Troponin T (0.00-0.029) ng/mL Triglycerides (2-149) mg/dL HDL Cholesterol (40-59) mg/dL 11/03/16 11/03/16 11/03/16 Range/Units 08:25 08:25 08:25 WBC 22.5 H (4.5-11.0) K/mm3 RBC 2.79 L (3.65-5.03) M/mm3 Hgb 8.0 L (10.1-14.3) gm/dl MCV 125 H (79-97) fl MCHC 23 L (30-34) % RDW 23.3 H (13.2-15.2) % Seg Neuts % (Manual) 78.0 H (40.0-70.0) % Lymphocytes % (Manual) 13.0 L (13.4-35.0) % Seg Neutrophils # Man 17.6 H (1.8-7.7) K/mm3 Monocytes # (Manual) 1.6 H (0.0-0.8) K/mm3 PT (12.2-14.9) Sec. INR (0.87-1.13) D-Dimer (0-234) ng/mlDDU POC ABG pH (7.35-7.45) POC ABG pCO2 (35-45) POC ABG pO2 (80-105) VBG pH (7.320-7.420) Sodium 133 L (137-145) mmol/L Potassium 9.4 H* (3.6-5.0) mmol/L Chloride 84.2 L (98-107) mmol/L Carbon Dioxide 2 L* (22-30) mmol/L BUN 51 H (7-17) mg/dL Creatinine 3.2 H (0.7-1.2) mg/dL Glucose 1167 H* (65-100) mg/dL POC Glucose (70-105) Lactic Acid (0.7-2.0) mmol/L Calcium (8.4-10.2) mg/dL Phosphorus 18.70 H (2.5-4.5) mg/dL Magnesium 3.40 H (1.7-2.3) mg/dL Troponin T (0.00-0.029) ng/mL Triglycerides (2-149) mg/dL HDL Cholesterol (40-59) mg/dL 11/03/16 11/03/16 11/03/16 Range/Units 09:07 10:03 10:08 WBC (4.5-11.0) K/mm3 RBC (3.65-5.03) M/mm3 Hgb (10.1-14.3) gm/dl MCV (79-97) fl MCHC (30-34) % RDW (13.2-15.2) % Seg Neuts % (Manual) (40.0-70.0) % Lymphocytes % (Manual) (13.4-35.0) % Seg Neutrophils # Man (1.8-7.7) K/mm3 Monocytes # (Manual) (0.0-0.8) K/mm3 PT (12.2-14.9) Sec. INR (0.87-1.13) D-Dimer (0-234) ng/mlDDU POC ABG pH 6.897 L (7.35-7.45) POC ABG pCO2 30.2 L (35-45) POC ABG pO2 553 H (80-105) VBG pH (7.320-7.420) Sodium (137-145) mmol/L Potassium (3.6-5.0) mmol/L Chloride (98-107) mmol/L Carbon Dioxide (22-30) mmol/L BUN (7-17) mg/dL Creatinine (0.7-1.2) mg/dL Glucose (65-100) mg/dL POC Glucose > 500 H (70-105) Lactic Acid (0.7-2.0) mmol/L Calcium (8.4-10.2) mg/dL Phosphorus (2.5-4.5) mg/dL Magnesium (1.7-2.3) mg/dL Troponin T 0.033 H D (0.00-0.029) ng/mL Triglycerides 613 H (2-149) mg/dL HDL Cholesterol 25 L (40-59) mg/dL 11/03/16 11/03/16 Range/Units 10:08 10:13 WBC (4.5-11.0) K/mm3 RBC (3.65-5.03) M/mm3 Hgb (10.1-14.3) gm/dl MCV (79-97) fl MCHC (30-34) % RDW (13.2-15.2) % Seg Neuts % (Manual) (40.0-70.0) % Lymphocytes % (Manual) (13.4-35.0) % Seg Neutrophils # Man (1.8-7.7) K/mm3 Monocytes # (Manual) (0.0-0.8) K/mm3 PT (12.2-14.9) Sec. INR (0.87-1.13) D-Dimer (0-234) ng/mlDDU POC ABG pH (7.35-7.45) POC ABG pCO2 (35-45) POC ABG pO2 (80-105) VBG pH (7.320-7.420) Sodium (137-145) mmol/L Potassium 7.3 H* D (3.6-5.0) mmol/L Chloride 94.1 L (98-107) mmol/L Carbon Dioxide 4 L* (22-30) mmol/L BUN 46 H (7-17) mg/dL Creatinine 3.0 H (0.7-1.2) mg/dL Glucose 1457 H* (65-100) mg/dL POC Glucose (70-105) Lactic Acid 8.30 H* (0.7-2.0) mmol/L Calcium 7.3 L D (8.4-10.2) mg/dL Phosphorus (2.5-4.5) mg/dL Magnesium (1.7-2.3) mg/dL Troponin T (0.00-0.029) ng/mL Triglycerides (2-149) mg/dL HDL Cholesterol (40-59) mg/dL Assessment and Plan - Patient Problems (1) Septic shock Current Visit: Yes Status: Acute Plan to address problem: Sepsis Protocol: IV abx, IVF, serial lactate levels, monitor uop q shift, blood cultures, supportive care. The high probability of a clinically significant, sudden or life threatening deterioration of the [Cardiac, Pulmonary, Renal] system(s) required my full and direct attention, intervention and personal management. The aggregate critical care time was [65] minutes. This time is in addition to time spent performing reported procedures but includes the following: [x] Data Review and interpretation [x] Patient assessment and monitoring of vital signs [x] Documentation [x] Medication orders and management (2) Acute respiratory failure with hypoxemia Current Visit: Yes Status: Acute Plan to address problem: Intubated, Sedated, on Vent support, Pulmonary consulted, wean vent as tolerated. (3) Elevated troponin Current Visit: Yes Status: Acute Plan to address problem: serial cardiac enzymes, ekg, telemetry, treat sepsis, supportive care, cardiology consulted. (4) DKA (diabetic ketoacidoses) Current Visit: Yes Status: Acute Qualifiers: Diabetes mellitus type: type 1 Diabetes mellitus complication detail: with coma Diabetes mellitus correction insulin use: D Qualified Code(s): E10.11 - Type 1 diabetes mellitus with ketoacidosis with coma Plan to address problem: DKA protocol, Insulin drip, ivf, monitor anion gap, monitor uop q shift, (5) Acute renal failure Current Visit: No Status: Acute Qualifiers: Acute renal failure type: A Plan to address problem: IVF replacement, monitor uop q shift, urine electrolytes, supportive care. (6) D-dimer, elevated Current Visit: Yes Status: Acute Plan to address problem: VA scan to evaluate for PE, supportive care. (7) DVT prophylaxis Current Visit: Yes Status: Acute
[2016-11-03 12:25] LABS: Urine Drugs of Abuse Note Disclamer
[2016-11-03] MEDS ORDERED: KIONEX ONE (12:33)
[2016-11-03 12:35] LABS: BUN/Creatinine Ratio 15.66; Calcium 7.8 mg/dL (8.4-10.2); Chloride 98.8 mmol/L (98-107); Potassium 3.9 mmol/L (3.6-5.0)
[2016-11-03 12:35] LABS: Magnesium 2.7 mg/dL (1.7-2.3); Phosphorous 6.7 mg/dL (2.5-4.5)
[2016-11-03] MEDS ORDERED: VANCOMYCIN/NS 1 GM/250 ML 1 GM/250 ML BAG IV ONE (12:55)
[2016-11-03 12:56] LABS: Bilirubin,Urine NEG (Negative); Blood,Urine NEG (Negative); Ketones,Urine 20 mg/dL (Negative); Leukocyte Esterase,Urine NEG (Negative); Mucus,Urine FEW /HPF; Nitrite,Urine NEG (Negative); Urobilinogen,Urine < 2.0 mg/dL (<2.0)
[2016-11-03] MEDS ORDERED: SODIUM BICARBONATE 50 MEQ in NACL 0.9% 1000 ML 1,000 ML IV SCH (13:00)
[2016-11-03] MEDS ORDERED: LEVAQUIN 750MG/150ML 750 MG/150 ML BAG IV ONE ×2 (13:30→13:31)
[2016-11-03] MEDS ORDERED: VANCOMYCIN/NS 1 GM/250 ML 1 GM/250 ML BAG IV SCH (13:30)
--- NOTE | 2016-11-03 14:19 | Consultation ---
History of Present Illness Consult date: 11/03/16 Requesting physician: STEPHANIE PLASENCIA Consult reason: other (abnormal EKG) History of present illness: The patient is a 46-year-old female with a past medical history significant for diabetes, hypertension and noncompliance. She is previously unknown to our practice. One evaluation, she is intubated and unresponsive and thus her HPI is obtained per the records and per ED MD. Earlier today, pt was found down and unresponsive by a friend who subsequently notified EMS. EMS transported pt to [facility] for further evaluation and treatment. Following arrival, pt was found to be in DKA with serum glucose above 1000, creatinine of 3.2, potassium of 9.4, as well as acute respiratory failure and septic shock, lactic acid of 8.3 and WBC of 22.5. She was intubated in ED and placed on vent support as well as pressor support. Initial EKG was concerning for septal and anterior HI, a code STEMI was called. However, repeat EKG showed resolution of ischemic changes and code STEMI was cancelled. Past History Past Medical History: diabetes, GERD, hypertension Past Surgical History: No surgical history, Other (reviewed) Social history: single. denies: smoking, alcohol abuse, prescription drug abuse Family history: diabetes, hypertension Medications and Allergies Allergies Allergy/AdvReac Type Severity Reaction Status Date / Time No Known Allergies Allergy Verified 03/26/14 03:17 Home Medications Medication Instructions Recorded Confirmed Last Taken Type Calcium Carbonate [Oscal] 1,250 mg PO BID #60 tablet 10/11/16 Unknown Rx Insulin NPH/Regular [NovoLIN 70/30] 10 unit SUB-Q BIDDIAB 30 Days 10/11/1609/30 Unknown Rx Metoprolol [Lopressor TAB] 25 mg PO BID #60 tablet 10/11/16 Unknown Rx Pantoprazole [Protonix TAB] 40 mg PO QDAY #30 tablet 10/11/16 Unknown Rx Active Meds: Active Medications Al Hydrox/Mg Hydrox/Simethicone (Alum-Mag Hydrox-Simeth [phone]/5ml) 30 ml PO Q4H PRN PRN Reason: Indigestion Bisacodyl (Dulcolax) 10 mg UT QDAY PRN PRN Reason: constipation unrelieved by MOM Dextrose (D50w (25gm)) 0 ml IV PRN PRN PRN Reason: Hypoglycemia Dextrose (D50w (25gm)) 0 ml IV PRN PRN PRN Reason: Hypoglycemia Dextrose (D50w (25gm)) 0 ml IV ONCE PRN PRN Reason: Hypoglycemia Heparin Sodium (Porcine) (Heparin) 5,000 unit SUB-Q Q12HR ULI Sodium Chloride (Nacl 0.9% 1000 Ml) 1,000 mls @ 42 mls/hr IV ONCE ONE Stop: 11/04/16 08:03 Last Admin: 11/03/16 08:26 Dose: Not Given Norepinephrine (Levophed Drip 4 Mg/Ns 250 Ml) 4 mg in 250 mls @ 7.5 mls/hr IV TITR ULI; 2 MCG/MIN PRN Reason: Protocol Last Titration: 11/03/16 12:53 Dose: 1 mcg/min, 3.75 mls/hr Midazolam HCl 100 mg/ Sodium (Chloride) 100 mls @ 2 mls/hr IV TITR ULI; 2 MG/HR PRN Reason: Protocol Last Titration: 11/03/16 12:45 Dose: 5 mg/hr, 5 mls/hr Insulin Human Regular 100 (units/ Sodium Chloride) 100 mls @ 1 mls/hr IV TITR ULI; 1 UNITS/HR PRN Reason: Protocol Piperacillin Sod/Tazobactam Sod (Zosyn/Ns 2.25 Gm/50ml) 2.25 gm in 50 mls @ 100 mls/hr IV Q8H ULI PRN Reason: Protocol Levofloxacin/Dextrose (Levaquin 750mg/150ml) 750 mg in 150 mls @ 100 mls/hr IV ONCE ONE PRN Reason: Protocol Stop: 11/03/16 14:59 Last Admin: 11/03/16 13:33 Dose: 100 mls/hr Levofloxacin/Dextrose (Levaquin 500mg/100ml) 500 mg in 100 mls @ 66.667 mls/hr IV Q48H ULI PRN Reason: Protocol Vancomycin HCl (Vancomycin/Ns 1 Gm/250 Ml) 1 gm in 250 mls @ 125 mls/hr IV Q48H ULI Last Admin: 11/03/16 13:53 Dose: 125 mls/hr Fentanyl Citrate (Fentanyl Drip Premix) 2,000 mcg in 100 mls @ 2.495 mls/hr IV TITR ULI; 1 MCG/KG/HR PRN Reason: Protocol Magnesium Hydroxide (Milk Of Magnesia) 30 ml PO Q4H PRN PRN Reason: Constipation Vancomycin HCl (Vancomycin Pharmacy To Dose) 1 each IV PKCONSULT ULI PRN Reason: Protocol Review of Systems ROS unobtainable: due to endotracheal tube, due to mental status Physical Examination Last Vital Signs Temp 95.0 F L 11/03/16 09:08 Pulse 142 H 11/03/16 13:15 Resp 24 11/03/16 13:15 BP 111/61 11/03/16 13:15 Pulse Ox 100 11/03/16 13:15 General appearance: other (ill-appearing; intubated) HEENT: Positive: PERRL, Normocephaly, Mucus Membranes Moist Neck: Positive: neck supple, trachea midline Cardiac: Positive: Regular Rhythm, S1/S2, Tachycardia Lungs: Positive: Decreased Breath Sounds, Ventilated Respirations Neuro: Positive: Other (unresponsive ) Abdomen: Positive: Soft, Active Bowel Sounds Skin: Positive: Clear. Negative: Rash, Wound Musculoskeletal: No Fluid Collection, No Pain, Normal Range of Motion Extremities: Present: upper extr. pulses, lower extr. pulses. Absent: edema Results 11/03/16 08:25 11/03/16 11:45 Comprehensive Metabolic Panel 11/03/16 Range/Units 11:45 Potassium 3.9 D (3.6-5.0) mmol/L Chloride 98.8 (98-107) mmol/L Carbon Dioxide 6 L* (22-30) mmol/L BUN 47 H (7-17) mg/dL Creatinine 3.0 H (0.7-1.2) mg/dL Glucose 1292 H* (65-100) mg/dL Calcium 7.8 L (8.4-10.2) mg/dL - Imaging and Cardiology Echo: pending EKG: report reviewed, image reviewed EKG interpretations - Telemetry EKG Rhythm: Sinus Tachycardia - EKG Sinus rhythms and dysrhythmias: sinus tachycardia Assessment and Plan Assessment: Transient ST segment elevations - resolved. DKA / hyperkalemia Acute respiratory failure - intubated Sinus tachycardia Hypotension / septic shock / lactic acidosis - requiring vasopressor support. ARF HTN DM Hypocalcemia Elevated DDimer Noncompliance Marijuana use Plan: Obtain echo. Repeat EKG in AM. Initiate IV lopressor, 5mg Q8H. Hold for HR <60. Cont to trend Walter. Currently with Walter negative for AMI. Consider heparin gtt if Walter become positive for AMI. Cont ASA. For V/Q scan to r/o PE. Consider ischemic evaluation once medically stabilized or earlier if it becomes emergently indicated. The patient has been seen in conjunction with Dr. Colmenares who agrees with the assessment and plan of care.
[2016-11-03] MEDS ORDERED: NACL 0.45% 1000 ML 1,000 ML IV ONE (14:22)
[2016-11-03 14:50] LABS: BUN/Creatinine Ratio 15.35; Calcium 7.6 mg/dL (8.4-10.2); Chloride 105.4 mmol/L (98-107); Potassium 4.1 mmol/L (3.6-5.0)
[2016-11-03 14:53] LABS: Creatine Kinase MB 3.4 ng/mL (0.0-4.0)
[2016-11-03] MEDS ORDERED: NACL 0.45% 1000 ML 1,000 ML IV SCH (15:00)
[2016-11-03] MEDS: ZOSYN/NS 2.25 GM/50ML 2.25 GM/50 ML BAG IV SCH ×2 (15:32→22:00)
--- NOTE | 2016-11-03 15:44 | Consultation ---
History of Present Illness - Reason for Consult Consult date: 11/03/16 - History of Present Illness pt was seen and examined in ER.Pt is orally intubated-on ventilator. Discussed with ER physician and the hospitalist. Consult dictated. Condition- critical Past History Past Medical History: diabetes, GERD, hypertension Past Surgical History: No surgical history, Other (reviewed) Social history: single. denies: smoking, alcohol abuse, prescription drug abuse Family history: diabetes, hypertension Medications and Allergies Allergies Allergy/AdvReac Type Severity Reaction Status Date / Time No Known Allergies Allergy Verified 03/26/14 03:17 Home Medications Medication Instructions Recorded Confirmed Last Taken Type Calcium Carbonate [Oscal] 1,250 mg PO BID #60 tablet 10/11/16 Unknown Rx Insulin NPH/Regular [NovoLIN 70/30] 10 unit SUB-Q BIDDIAB 30 Days 10/11/1609/30 Unknown Rx Metoprolol [Lopressor TAB] 25 mg PO BID #60 tablet 10/11/16 Unknown Rx Pantoprazole [Protonix TAB] 40 mg PO QDAY #30 tablet 10/11/16 Unknown Rx Active Meds: Active Medications Al Hydrox/Mg Hydrox/Simethicone (Alum-Mag Hydrox-Simeth [phone]/5ml) 30 ml PO Q4H PRN PRN Reason: Indigestion Aspirin (Aspirin) 300 mg MD QDAY ULI Bisacodyl (Dulcolax) 10 mg MD QDAY PRN PRN Reason: constipation unrelieved by MOM Dextrose (D50w (25gm)) 0 ml IV PRN PRN PRN Reason: Hypoglycemia Dextrose (D50w (25gm)) 0 ml IV PRN PRN PRN Reason: Hypoglycemia Dextrose (D50w (25gm)) 0 ml IV ONCE PRN PRN Reason: Hypoglycemia Heparin Sodium (Porcine) (Heparin) 5,000 unit SUB-Q Q12HR ULI Sodium Chloride (Nacl 0.9% 1000 Ml) 1,000 mls @ 42 mls/hr IV ONCE ONE Stop: 11/04/16 08:03 Last Admin: 11/03/16 08:26 Dose: Not Given Norepinephrine (Levophed Drip 4 Mg/Ns 250 Ml) 4 mg in 250 mls @ 7.5 mls/hr IV TITR ULI; 2 MCG/MIN PRN Reason: Protocol Last Titration: 11/03/16 15:28 Dose: 0 mcg/min, 0 mls/hr Midazolam HCl 100 mg/ Sodium (Chloride) 100 mls @ 2 mls/hr IV TITR ULI; 2 MG/HR PRN Reason: Protocol Last Titration: 11/03/16 12:45 Dose: 5 mg/hr, 5 mls/hr Insulin Human Regular 100 (units/ Sodium Chloride) 100 mls @ 1 mls/hr IV TITR ULI; 1 UNITS/HR PRN Reason: Protocol Piperacillin Sod/Tazobactam Sod (Zosyn/Ns 2.25 Gm/50ml) 2.25 gm in 50 mls @ 100 mls/hr IV Q8H ULI PRN Reason: Protocol Levofloxacin/Dextrose (Levaquin 500mg/100ml) 500 mg in 100 mls @ 66.667 mls/hr IV Q48H ULI PRN Reason: Protocol Vancomycin HCl (Vancomycin/Ns 1 Gm/250 Ml) 1 gm in 250 mls @ 125 mls/hr IV Q48H ULI Last Admin: 11/03/16 13:53 Dose: 125 mls/hr Fentanyl Citrate (Fentanyl Drip Premix) 2,000 mcg in 100 mls @ 2.495 mls/hr IV TITR ULI; 1 MCG/KG/HR PRN Reason: Protocol Sodium Chloride (Nacl 0.45% 1000 Ml) 1,000 mls @ 150 mls/hr IV DIRECT ULI Magnesium Hydroxide (Milk Of Magnesia) 30 ml PO Q4H PRN PRN Reason: Constipation Vancomycin HCl (Vancomycin Pharmacy To Dose) 1 each IV PKCONSULT ULI PRN Reason: Protocol Exam - Constitutional Vitals: Temp Pulse Resp BP Pulse Ox 95.0 F L 142 H 24 111/61 100 11/03/16 09:08 11/03/16 13:15 11/03/16 13:15 11/03/16 13:15 11/03/16 13:15 Results - Labs CBC & Chem 7: 11/03/16 08:25 11/03/16 14:22 Labs: Abnormal lab results 11/03/16 11/03/16 11/03/16 Range/Units 11:45 14:22 14:22 Sodium 152 H (137-145) mmol/L Carbon Dioxide 6 L* 11 L (22-30) mmol/L BUN 47 H 43 H (7-17) mg/dL Creatinine 3.0 H 2.8 H (0.7-1.2) mg/dL Glucose 1292 H* 977 H* (65-100) mg/dL POC Glucose (70-105) Lactic Acid (0.7-2.0) mmol/L Calcium 7.8 L 7.6 L (8.4-10.2) mg/dL Total Creatine Kinase 168 H (30-135) units/L Troponin T 0.039 H (0.00-0.029) ng/mL 11/03/16 11/03/16 11/03/16 Range/Units 14:23 15:13 Unknown Sodium (137-145) mmol/L Carbon Dioxide (22-30) mmol/L BUN (7-17) mg/dL Creatinine (0.7-1.2) mg/dL Glucose (65-100) mg/dL POC Glucose > 500 H (70-105) Lactic Acid 7.50 H* 7.10 H* (0.7-2.0) mmol/L Calcium (8.4-10.2) mg/dL Total Creatine Kinase (30-135) units/L Troponin T (0.00-0.029) ng/mL
[2016-11-03 16:51] LABS: BUN/Creatinine Ratio 15.38; Calcium 7.2 mg/dL (8.4-10.2); Chloride 106.9 mmol/L (98-107); Potassium 3.5 mmol/L (3.6-5.0)
[2016-11-03] MEDS: LOPRESSOR IV SCH (18:53)
[2016-11-03 22:00] LABS: Calcium 7.7 mg/dL (8.4-10.2); Chloride 116.1 mmol/L (98-107); Potassium 3.4 mmol/L (3.6-5.0)
[2016-11-03] MEDS: HEPARIN SUB-Q SCH (22:00)
[2016-11-04] MEDS: LOPRESSOR IV SCH ×4 (00:06→21:06)
[2016-11-04] MEDS: MIDAZOLAM 100 MG in NACL 0.9% 80 ML IV SCH (00:39)
[2016-11-04 02:26] LABS: BUN/Creatinine Ratio 14.13; Calcium 7.5 mg/dL (8.4-10.2); Chloride 115.7 mmol/L (98-107); Potassium 3.2 mmol/L (3.6-5.0)
[2016-11-04] MEDS: ZOSYN/NS 2.25 GM/50ML 2.25 GM/50 ML BAG IV SCH ×3 (04:40→21:06)
[2016-11-04 05:33] LABS: Calcium 7.5 mg/dL (8.4-10.2); Chloride 118.5 mmol/L (98-107); Potassium 3.2 mmol/L (3.6-5.0)
[2016-11-04 06:07] LABS: ISTAT Base Excess -4; ISTAT HCO3 19.7; ISTAT PCO2 27.9 (35-45); ISTAT PH 7.456 (7.35-7.45); ISTAT PO2 144 (80-105); ISTAT SO2 99; ISTAT TCO2 20
--- NOTE | 2016-11-04 08:04 | Progress Note ---
Assessment and Plan Impression * Acute renal failure. Most likely prerenal. May have progressed to ATN. Her baseline creatinine seems to be approximately 1-1.2. She is currently nonoliguric * DKA * Sepsis * Respiratory failure * Hypernatremia Recommendations * Patient's creatinine is essentially unchanged. She is however nonoliguric. * Hyperkalemia has been corrected * Patient currently not receiving any IV fluid. Shall resume IV fluid with dextrose with half-normal saline for now * Monitor electrolytes. She may need potassium supplement * Shall check a phosphorus level as well * Continue empiric IV antibiotics * Shall check a renal ultrasound as well as a fractional excretion of sodium. Her urine shows 1+ dipstick protein but no blood * Monitor fluid status and electrolytes closely Subjective Date of service: 11/04/16 Interval history: Patient is currently in the ICU. On the ventilator. On 30% FiO2. Sedated. Patient also on insulin drip Objective - Vital Signs Vital signs: Vital Signs - 12hr 11/03/16 11/03/16 11/03/16 20:00 20:16 20:25 Temperature Pulse Rate 134 H 137 H 140 H Pulse Rate [ 124 H From Monitor] Respiratory 18 20 Rate Blood Pressure 109/64 109/64 109/64 O2 Sat by Pulse 100 100 100 Oximetry 11/03/16 11/03/16 11/03/16 20:30 20:46 21:00 Temperature Pulse Rate 140 H 141 H 143 H Pulse Rate [ From Monitor] Respiratory 20 17 18 Rate Blood Pressure 109/64 109/64 99/67 O2 Sat by Pulse 100 100 100 Oximetry 11/03/16 11/03/16 11/03/16 21:16 21:30 21:38 Temperature Pulse Rate 143 H 143 H 142 H Pulse Rate [ From Monitor] Respiratory 18 18 18 Rate Blood Pressure 99/67 99/67 99/67 O2 Sat by Pulse 100 100 100 Oximetry 11/03/16 11/03/16 11/03/16 21:46 22:00 22:16 Temperature Pulse Rate 143 H 144 H 146 H Pulse Rate [ From Monitor] Respiratory 16 18 18 Rate Blood Pressure 99/67 99/66 99/66 O2 Sat by Pulse 100 100 100 Oximetry 11/03/16 11/03/16 11/03/16 22:30 22:46 23:00 Temperature Pulse Rate 144 H 144 H 143 H Pulse Rate [ From Monitor] Respiratory 18 18 18 Rate Blood Pressure 99/66 99/66 117/70 O2 Sat by Pulse 100 100 100 Oximetry 11/03/16 11/03/16 11/03/16 23:15 23:30 23:41 Temperature Pulse Rate 146 H 144 H 142 H Pulse Rate [ From Monitor] Respiratory 18 16 Rate Blood Pressure 112/73 121/65 121/65 O2 Sat by Pulse 100 100 100 Oximetry 11/03/16 11/04/16 11/04/16 23:45 00:00 00:06 Temperature Pulse Rate 142 H 142 H 141 H Pulse Rate [ From Monitor] Respiratory 18 19 Rate Blood Pressure 115/66 120/70 115/66 O2 Sat by Pulse 100 100 Oximetry 11/04/16 11/04/16 11/04/16 00:15 00:30 00:45 Temperature Pulse Rate 127 H 126 H 126 H Pulse Rate [ From Monitor] Respiratory 18 18 15 Rate Blood Pressure 125/75 127/74 128/76 O2 Sat by Pulse 100 100 100 Oximetry 11/04/16 11/04/16 11/04/16 01:00 01:15 01:30 Temperature Pulse Rate 127 H 122 H 121 H Pulse Rate [ From Monitor] Respiratory 15 19 18 Rate Blood Pressure 128/76 123/78 134/83 O2 Sat by Pulse 99 100 100 Oximetry 11/04/16 11/04/16 11/04/16 01:45 02:00 02:15 Temperature Pulse Rate 122 H 124 H 126 H Pulse Rate [ From Monitor] Respiratory 18 21 18 Rate Blood Pressure 138/88 146/91 144/90 O2 Sat by Pulse 100 100 100 Oximetry 11/04/16 11/04/16 11/04/16 02:30 02:45 03:00 Temperature Pulse Rate 129 H 128 H 130 H Pulse Rate [ From Monitor] Respiratory 18 18 19 Rate Blood Pressure 145/91 151/93 148/90 O2 Sat by Pulse 100 100 100 Oximetry 11/04/16 11/04/16 11/04/16 03:15 03:30 03:45 Temperature Pulse Rate 128 H 130 H 130 H Pulse Rate [ From Monitor] Respiratory 19 18 18 Rate Blood Pressure 151/94 156/91 154/89 O2 Sat by Pulse 100 100 100 Oximetry 11/04/16 11/04/16 11/04/16 04:00 04:15 04:30 Temperature 100.0 F H Pulse Rate 130 H 129 H 129 H Pulse Rate [ 133 H From Monitor] Respiratory 17 18 18 Rate Blood Pressure 157/99 154/93 O2 Sat by Pulse 100 100 100 Oximetry 11/04/16 11/04/16 11/04/16 04:45 04:50 05:00 Temperature Pulse Rate 129 H 130 H 130 H Pulse Rate [ From Monitor] Respiratory 18 18 Rate Blood Pressure 164/97 155/98 155/100 O2 Sat by Pulse 100 100 100 Oximetry 11/04/16 11/04/16 11/04/16 05:15 05:30 05:45 Temperature Pulse Rate 131 H 130 H 130 H Pulse Rate [ From Monitor] Respiratory 17 18 14 Rate Blood Pressure 158/95 157/98 149/89 O2 Sat by Pulse 100 100 100 Oximetry 11/04/16 11/04/16 06:00 06:15 Temperature Pulse Rate 131 H 131 H Pulse Rate [ From Monitor] Respiratory 18 18 Rate Blood Pressure 153/91 159/92 O2 Sat by Pulse 100 100 Oximetry - General Appearance General appearance: chronically ill, intubated, frail EENT: PERRL, mucous membranes moist Neck: no JVD, no thyromegaly Respiratory: Present: Clear to Ascultation Cardiology: regular, normal heart rate Gastrointestinal: normal, normoactive bowel sounds Integumentary: no rash, other (no edema) - Lab 11/03/16 08:25 11/04/16 04:40 Most recent lab results Calcium 7.5 mg/dL (8.4-10.2) L 11/04/16 04:40 Phosphorus 6.70 mg/dL (2.5-4.5) H D 11/03/16 11:44 Magnesium 2.70 mg/dL (1.7-2.3) H 11/03/16 11:44 Urine Creatinine 85.4 mg/dL (0.1-20.0) H 11/03/16 18:36 Urine Sodium 49 mEq/L 11/03/16 18:36
[2016-11-04 08:42] LABS: BUN/Creatinine Ratio 13.22; Calcium 7.6 mg/dL (8.4-10.2); Chloride 120.7 mmol/L (98-107); Potassium 3.1 mmol/L (3.6-5.0)
[2016-11-04] MEDS ORDERED: KCL 20MEQ/100ML 20 MEQ/100 ML BAG IV ONE (10:00)
[2016-11-04] MEDS ORDERED: LEVAQUIN 750MG/150ML 750 MG/150 ML BAG IV SCH (10:00)
[2016-11-04] MEDS: fentaNYL DRIP Premix 2,000 MCG/100 ML BAG IV SCH (10:30)
[2016-11-04] MEDS: HEPARIN SUB-Q SCH ×2 (10:39→21:07)
[2016-11-04] MEDS: ASPIRIN PR SCH (10:40)
[2016-11-04] MEDS: PEPCID IV SCH (10:40)
[2016-11-04 10:55] LABS: Phosphorous 2.4 mg/dL (2.5-4.5)
--- NOTE | 2016-11-04 11:21 | Consultation ---
History of Present Illness Consult date: 11/04/16 Requesting physician: TEE MIMS Reason for consult: other (Acute Hypoxemic Resp Failure; DKA) History of present illness: PULMONARY/CCM CONSULT NOTE (Full dictation # [id number]) Please see dictated notes for full details Past History Past Medical History: diabetes, GERD, hypertension Past Surgical History: No surgical history, Other (reviewed) Social history: single. denies: smoking, alcohol abuse, prescription drug abuse Family history: diabetes, hypertension Medications and Allergies Allergies Allergy/AdvReac Type Severity Reaction Status Date / Time No Known Allergies Allergy Verified 03/26/14 03:17 Home Medications Medication Instructions Recorded Confirmed Last Taken Type Calcium Carbonate [Oscal] 1,250 mg PO BID #60 tablet 10/11/16 Unknown Rx Insulin NPH/Regular [NovoLIN 70/30] 10 unit SUB-Q BIDDIAB 30 Days 10/11/1609/30 Unknown Rx Metoprolol [Lopressor TAB] 25 mg PO BID #60 tablet 10/11/16 Unknown Rx Pantoprazole [Protonix TAB] 40 mg PO QDAY #30 tablet 10/11/16 Unknown Rx Active Meds: Active Medications Al Hydrox/Mg Hydrox/Simethicone (Alum-Mag Hydrox-Simeth 449-225-51az/5ml) 30 ml PO Q4H PRN PRN Reason: Indigestion Aspirin (Aspirin) 300 mg [place] QDAY ULI Last Admin: 11/04/16 10:40 Dose: 300 mg Bisacodyl (Dulcolax) 10 mg [place] QDAY PRN PRN Reason: constipation unrelieved by MOM Dextrose (D50w (25gm)) 0 ml IV ONCE PRN PRN Reason: Hypoglycemia Famotidine (Pepcid) 20 mg IV DAILY ULI Last Admin: 11/04/16 10:40 Dose: 20 mg Heparin Sodium (Porcine) (Heparin) 5,000 unit SUB-Q Q12HR ULI Last Admin: 11/04/16 10:39 Dose: 5,000 unit Norepinephrine (Levophed Drip 4 Mg/Ns 250 Ml) 4 mg in 250 mls @ 7.5 mls/hr IV TITR ULI; 2 MCG/MIN PRN Reason: Protocol Last Titration: 11/03/16 15:28 Dose: 0 mcg/min, 0 mls/hr Midazolam HCl 100 mg/ Sodium (Chloride) 100 mls @ 2 mls/hr IV TITR ULI; 2 MG/HR PRN Reason: Protocol Last Titration: 11/04/16 10:30 Dose: 0 mg/hr, 0 mls/hr Insulin Human Regular 100 (units/ Sodium Chloride) 100 mls @ 1 mls/hr IV TITR ULI; 1 UNITS/HR PRN Reason: Protocol Last Titration: 11/04/16 10:06 Dose: 1.5 units/hr, 1.5 mls/hr Piperacillin Sod/Tazobactam Sod (Zosyn/Ns 2.25 Gm/50ml) 2.25 gm in 50 mls @ 100 mls/hr IV Q8H ULI PRN Reason: Protocol Last Admin: 11/04/16 04:40 Dose: 100 mls/hr Levofloxacin/Dextrose (Levaquin 500mg/100ml) 500 mg in 100 mls @ 66.667 mls/hr IV Q48H ULI PRN Reason: Protocol Fentanyl Citrate (Fentanyl Drip Premix) 2,000 mcg in 100 mls @ 2.495 mls/hr IV TITR ULI; 1 MCG/KG/HR PRN Reason: Protocol Last Admin: 11/04/16 10:30 Dose: 2 mcg/kg/hr, 4.99 mls/hr Sodium Chloride (Nacl 0.45% 1000 Ml) 1,000 mls @ 150 mls/hr IV DIRECT ULI Dextrose/Sodium Chloride (D5/0.45ns) 1,000 mls @ 125 mls/hr IV DIRECT ULI Magnesium Hydroxide (Milk Of Magnesia) 30 ml PO Q4H PRN PRN Reason: Constipation Metoprolol Tartrate (Lopressor) 5 mg IV Q8H [facility] Last Admin: 11/04/16 09:30 Dose: 5 mg Vancomycin HCl (Vancomycin Pharmacy To Dose) 1 each IV PKCONSULT ULI PRN Reason: Protocol Physical Examination Vital signs: Vital Signs Resp BP 19 67/34 11/03/16 08:00 11/03/16 08:00 Results - Laboratory Findings CBC and BMP: 11/03/16 08:25 11/04/16 08:09 ABG POC ABG pH 7.456 (7.35-7.45) H 11/04/16 05:30 POC ABG pCO2 27.9 (35-45) L 11/04/16 05:30 POC ABG pO2 144 (80-105) H 11/04/16 05:30 POC ABG HCO3 19.7 11/04/16 05:30 POC ABG Total CO2 20 11/04/16 05:30 POC ABG O2 Sat 99 11/04/16 05:30 PT/INR, D-dimer PT 17.3 Sec. (12.2-14.9) H 11/03/16 08:25 INR 1.42 (0.87-1.13) H 11/03/16 08:25 D-Dimer 2416.88 ng/mlDDU (0-234) H 11/03/16 08:25 Abnormal lab findings: Abnormal Labs 11/03/16 11/03/16 11/03/16 11:45 14:22 14:22 POC ABG pH POC ABG pCO2 POC ABG pO2 Sodium 152 H Potassium Chloride Carbon Dioxide 6 L* 11 L BUN 47 H 43 H Creatinine 3.0 H 2.8 H Glucose 1292 H* 977 H* POC Glucose Lactic Acid Calcium 7.8 L 7.6 L Phosphorus Total Creatine Kinase 168 H Troponin T 0.039 H Urine Creatinine 11/03/16 11/03/16 11/03/16 14:23 15:13 16:15 POC ABG pH POC ABG pCO2 POC ABG pO2 Sodium 151 H Potassium 3.5 L Chloride Carbon Dioxide 12 L BUN 40 H Creatinine 2.6 H Glucose 656 H* POC Glucose > 500 H Lactic Acid 7.50 H* Calcium 7.2 L Phosphorus Total Creatine Kinase Troponin T Urine Creatinine 11/03/16 11/03/16 11/03/16 18:06 18:36 19:06 POC ABG pH POC ABG pCO2 POC ABG pO2 Sodium Potassium Chloride Carbon Dioxide BUN Creatinine Glucose POC Glucose 418 H 330 H Lactic Acid Calcium Phosphorus Total Creatine Kinase Troponin T Urine Creatinine 85.4 H 11/03/16 11/03/16 11/03/16 20:51 20:56 22:01 POC ABG pH POC ABG pCO2 POC ABG pO2 Sodium 157 H Potassium 3.4 L Chloride 116.1 H Carbon Dioxide 19 L D BUN 39 H Creatinine 2.6 H Glucose 165 H POC Glucose 178 H 110 H Lactic Acid Calcium 7.7 L Phosphorus Total Creatine Kinase Troponin T Urine Creatinine 11/03/16 11/04/16 11/04/16 Unknown 00:17 00:30 POC ABG pH POC ABG pCO2 POC ABG pO2 Sodium 158 H Potassium 3.2 L Chloride 115.7 H Carbon Dioxide 19 L BUN 41 H Creatinine 2.9 H Glucose 118 H POC Glucose 186 H Lactic Acid 7.10 H* Calcium 7.5 L Phosphorus Total Creatine Kinase Troponin T Urine Creatinine 11/04/16 11/04/16 11/04/16 01:15 02:04 03:18 POC ABG pH POC ABG pCO2 POC ABG pO2 Sodium Potassium Chloride Carbon Dioxide BUN Creatinine Glucose POC Glucose 171 H 113 H 115 H Lactic Acid Calcium Phosphorus Total Creatine Kinase Troponin T Urine Creatinine 11/04/16 11/04/16 11/04/16 03:57 04:40 05:01 POC ABG pH POC ABG pCO2 POC ABG pO2 Sodium 161 H* Potassium 3.2 L Chloride 118.5 H Carbon Dioxide 19 L BUN 42 H Creatinine 3.0 H Glucose 102 H POC Glucose 112 H 115 H Lactic Acid Calcium 7.5 L Phosphorus Total Creatine Kinase Troponin T Urine Creatinine 11/04/16 11/04/16 11/04/16 05:30 08:09 08:09 POC ABG pH 7.456 H POC ABG pCO2 27.9 L POC ABG pO2 144 H Sodium 163 H* Potassium Chloride Carbon Dioxide 19 L BUN 41 H Creatinine 3.1 H Glucose 113 H POC Glucose Lactic Acid Calcium 7.6 L Phosphorus 2.40 L D Total Creatine Kinase Troponin T Urine Creatinine
--- NOTE | 2016-11-04 11:52 | Ultrasound Report ---
ULTRASOUND RENAL BILATERAL HISTORY: Acute renal failure. TECHNIQUE: transabdominal ultrasound with color Doppler interrogation. COMPARISON: 10/02/16. FINDINGS: The right kidney measures 11.4 x 4.2 x 5.1cm. Right renal cortex: 1.5cm. The left kidney measures 10.7 x 5.1 x 3.9cm. Left renal cortex: 1.5cm. Scans of the kidneys show normal renal contours. There is normal central calyceal clustering and good preservation of the cortical thickness. There is no evidence of mass or hydronephrosis. The views of the bladder and the region of the ureters appear normal. IMPRESSION: Unremarkable renal ultrasound.
[2016-11-04] MEDS ORDERED: DUONEB 0.5 MG-3 MG/3 ML SOLN IH ONE ×2 (11:57→12:30)
--- NOTE | 2016-11-04 12:07 | Progress Note ---
Assessment and Plan Assessment: Transient ST segment elevations - resolved; Walter negative for AMI. DKA / hyperkalemia Acute respiratory failure - intubated Sinus tachycardia Hypotension / septic shock / lactic acidosis - weaned off pressors. ARF HTN DM Hypocalcemia Elevated DDimer Noncompliance Marijuana use Hypernatremia Plan: Await echo. Increase IV lopressor to 5mg Q6H. Hold for HR <60 and SBP <100. Cont ASA. For V/Q scan to r/o PE. Consider ischemic evaluation once medically stabilized or earlier if it becomes emergently indicated. The patient has been seen in conjunction with Dr. Colmenares who agrees with the assessment and plan of care. Subjective Date of service: 11/04/16 Principal diagnosis: DKA Interval history: Pt intubated, sedated. On insulin gtt. In ST on tele, HR 120s - 130s, hypertensive. No family at bedside. Objective Last Vital Signs Temp 99.9 F H 11/04/16 08:00 Pulse 126 H 11/04/16 09:35 Resp 18 11/04/16 09:00 BP 149/86 11/04/16 09:35 Pulse Ox 100 11/04/16 09:35 - Physical Examination General: Other (intubated, sedated) HEENT: Positive: PERRL, Normocephaly, Mucus Membranes Moist Neck: Positive: neck supple, trachea midline Cardiac: Positive: Regular Rhythm, S1/S2, Tachycardia Lungs: Positive: Decreased Breath Sounds, Oxygen, Ventilated Respirations Neuro: Positive: Other (intubated, sedated) Abdomen: Positive: Soft, Active Bowel Sounds Skin: Positive: Clear. Negative: Rash, Wound Musculoskeletal: No Fluid Collection, No Pain, Normal Range of Motion Extremities: Present: upper extr. pulses, lower extr. pulses. Absent: edema - Labs and Meds Cardiac Enzymes 11/03/16 Range/Units 14:22 CK-MB (CK-2) 3.4 (0.0-4.0) ng/mL Comprehensive Metabolic Panel 11/03/16 11/03/16 11/03/16 Range/Units 11:45 14:22 16:15 Sodium 152 H 151 H (137-145) mmol/L Potassium 3.9 D 4.1 3.5 L (3.6-5.0) mmol/L Chloride 98.8 105.4 106.9 (98-107) mmol/L Carbon Dioxide 6 L* 11 L 12 L (22-30) mmol/L BUN 47 H 43 H 40 H (7-17) mg/dL Creatinine 3.0 H 2.8 H 2.6 H (0.7-1.2) mg/dL Glucose 1292 H* 977 H* 656 H* (65-100) mg/dL Calcium 7.8 L 7.6 L 7.2 L (8.4-10.2) mg/dL 11/03/16 11/04/16 11/04/16 Range/Units 20:51 00:30 04:40 Sodium 157 H 158 H 161 H* (137-145) mmol/L Potassium 3.4 L 3.2 L 3.2 L (3.6-5.0) mmol/L Chloride 116.1 H 115.7 H 118.5 H (98-107) mmol/L Carbon Dioxide 19 L D 19 L 19 L (22-30) mmol/L BUN 39 H 41 H 42 H (7-17) mg/dL Creatinine 2.6 H 2.9 H 3.0 H (0.7-1.2) mg/dL Glucose 165 H 118 H 102 H (65-100) mg/dL Calcium 7.7 L 7.5 L 7.5 L (8.4-10.2) mg/dL 11/04/16 Range/Units 08:09 Sodium 163 H* (137-145) mmol/L Potassium (3.6-5.0) mmol/L Chloride (98-107) mmol/L Carbon Dioxide 19 L (22-30) mmol/L BUN 41 H (7-17) mg/dL Creatinine 3.1 H (0.7-1.2) mg/dL Glucose 113 H (65-100) mg/dL Calcium 7.6 L (8.4-10.2) mg/dL - Imaging and Cardiology EKG: report reviewed, image reviewed Echo: pending - Telemetry EKG Rhythm: Sinus Tachycardia - EKG Sinus rhythms and dysrhythmias: sinus tachycardia
[2016-11-04] MEDS ORDERED: PROVENTIL IH PRN (12:16)
--- NOTE | 2016-11-04 12:25 | Progress Note ---
Assessment and Plan Assessment and plan: Septic shock. Continue sepsis pathway. Follow-up cultures. Continue IV antibiotics. Consult ID for further evaluation. Continue vasopressor support to maintain MAP greater than 65. Echocardiogram pending. Acute hypoxic respiratory failure. Patient currently intubated on mechanical ventilation. Pulmonary following. Wean ventilator per protocol. DKA. Continued IV insulin drip. We will transition to long-acting insulin once the anion gap has closed and DKA resolved. Acute renal failure. Etiology most likely secondary to acute kidney injury/ATN from septic shock. Diabetes mellitus type 2. As above. Elevated d-dimer. Patient is scheduled for VQ scan to rule out pulmonary embolism. Elevated troponin. Etiology likely secondary to type II SC from septic shock. Continue to trend cardiac isoenzymes. Echocardiogram pending. History Interval history: The patient is a 46-year-old female with a past medical history significant for diabetes, hypertension and noncompliance. Pt reportedly was found down and unresponsive by a friend who subsequently notified EMS. EMS transported pt to [facility] for further evaluation and treatment. Following arrival, pt was found to be in DKA with serum glucose above 1000, creatinine of 3.2, potassium of 9.4, as well as acute respiratory failure and septic shock. Patient had a lactic acid of 8.3 and WBC of 22.5. She was intubated in ED and placed on vent support as well as pressor support. Patient is currently in the ICU intubated on mechanical ventilation sedated with Versed drip. Patient currently also with insulin drip infusing. Hospitalist Physical - Constitutional Vitals: Temp Pulse Resp BP Pulse Ox 99.9 F H 126 H 18 149/86 100 11/04/16 08:00 11/04/16 09:35 11/04/16 09:00 11/04/16 09:35 11/04/16 09:35 General appearance: Present: other (ill-appearing; intubated) - EENT Eyes: Present: PERRL, EOM intact ENT: hearing intact, clear oral mucosa, dentition normal - Neck Neck: Present: supple, normal ROM - Respiratory Respiratory effort: normal Respiratory: bilateral: diminished, rhonchi - Cardiovascular Rhythm: regular Heart Sounds: Present: S1 & S2. Absent: gallop, rub - Extremities Extremities: no ischemia, No edema, Full ROM - Abdominal General gastrointestinal: soft, non-tender, non-distended, normal bowel sounds - Integumentary Integumentary: Present: clear, warm, dry - Neurologic Neurologic: CNII-XII intact, moves all extremities Results - Labs CBC & Chem 7: 11/03/16 08:25 11/04/16 08:09 Labs: Laboratory Last Values WBC 22.5 K/mm3 (4.5-11.0) H 11/03/16 08:25 RBC 2.79 M/mm3 (3.65-5.03) L 11/03/16 08:25 Hgb 8.0 gm/dl (10.1-14.3) L 11/03/16 08:25 Hct 34.8 % (30.3-42.9) 11/03/16 08:25 MCV 125 fl (79-97) H 11/03/16 08:25 MCH 29 pg (28-32) 11/03/16 08:25 MCHC 23 % (30-34) L 11/03/16 08:25 RDW 23.3 % (13.2-15.2) H 11/03/16 08:25 Plt Count 418 K/mm3 (140-440) 11/03/16 08:25 Add Manual Diff Complete 11/03/16 08:25 Total Counted 100 11/03/16 08:25 Seg Neuts % (Manual) 78.0 % (40.0-70.0) H 11/03/16 08:25 Band Neutrophils % 2.0 % 11/03/16 08:25 Lymphocytes % (Manual) 13.0 % (13.4-35.0) L 11/03/16 08:25 Reactive Lymphs % (Man) 0 % 11/03/16 08:25 Monocytes % (Manual) 7.0 % (0.0-7.3) 11/03/16 08:25 Eosinophils % (Manual) 0 % (0.0-4.3) 11/03/16 08:25 Basophils % (Manual) 0 % (0.0-1.8) 11/03/16 08:25 Metamyelocytes % 0 % 11/03/16 08:25 Myelocytes % 0 % 11/03/16 08:25 Promyelocytes % 0 % 11/03/16 08:25 Blast Cells % 0 % 11/03/16 08:25 Nucleated RBC % Not Reportable 11/03/16 08:25 Seg Neutrophils # Man 17.6 K/mm3 (1.8-7.7) H 11/03/16 08:25 Band Neutrophils # 0.5 K/mm3 11/03/16 08:25 Lymphocytes # (Manual) 2.9 K/mm3 (1.2-5.4) 11/03/16 08:25 Abs React Lymphs (Man) 0.0 K/mm3 11/03/16 08:25 Monocytes # (Manual) 1.6 K/mm3 (0.0-0.8) H 11/03/16 08:25 Eosinophils # (Manual) 0.0 K/mm3 (0.0-0.4) 11/03/16 08:25 Basophils # (Manual) 0.0 K/mm3 (0.0-0.1) 11/03/16 08:25 Metamyelocytes # 0.0 K/mm3 11/03/16 08:25 Myelocytes # 0.0 K/mm3 11/03/16 08:25 Promyelocytes # 0.0 K/mm3 11/03/16 08:25 Blast Cells # 0.0 K/mm3 11/03/16 08:25 WBC Morphology Not Reportable 11/03/16 08:25 Hypersegmented Neuts Not Reportable 11/03/16 08:25 Hyposegmented Neuts Not Reportable 11/03/16 08:25 Hypogranular Neuts Not Reportable 11/03/16 08:25 Smudge Cells Not Reportable 11/03/16 08:25 Toxic Granulation Not Reportable 11/03/16 08:25 Toxic Vacuolation Not Reportable 11/03/16 08:25 Dohle Bodies Not Reportable 11/03/16 08:25 Pelger-Huet Anomaly Not Reportable 11/03/16 08:25 Mary Rods Not Reportable 11/03/16 08:25 Platelet Estimate Not Reportable 11/03/16 08:25 Clumped Platelets Not Reportable 11/03/16 08:25 Plt Clumps, EDTA Not Reportable 11/03/16 08:25 Large Platelets Not Reportable 11/03/16 08:25 Giant Platelets Not Reportable 11/03/16 08:25 Platelet Satelliting Not Reportable 11/03/16 08:25 Plt Morphology Comment Not Reportable 11/03/16 08:25 RBC Morphology Not Reportable 11/03/16 08:25 Dimorphic RBCs Not Reportable 11/03/16 08:25 Polychromasia Not Reportable 11/03/16 08:25 Hypochromasia Not Reportable 11/03/16 08:25 Poikilocytosis Not Reportable 11/03/16 08:25 Anisocytosis 2+ 11/03/16 08:25 Microcytosis Not Reportable 11/03/16 08:25 Macrocytosis 2+ 11/03/16 08:25 Spherocytes Not Reportable 11/03/16 08:25 Pappenheimer Bodies Not Reportable 11/03/16 08:25 Sickle Cells Not Reportable 11/03/16 08:25 Target Cells Not Reportable 11/03/16 08:25 Tear Drop Cells Not Reportable 11/03/16 08:25 Ovalocytes Not Reportable 11/03/16 08:25 Helmet Cells Not Reportable 11/03/16 08:25 [place] Bodies Not Reportable 11/03/16 08:25 [place] Rings Not Reportable 11/03/16 08:25 Jerri Cells Not Reportable 11/03/16 08:25 Bite Cells Not Reportable 11/03/16 08:25 Crenated Cell Not Reportable 11/03/16 08:25 Elliptocytes Not Reportable 11/03/16 08:25 Acanthocytes (Spur) Not Reportable 11/03/16 08:25 Rouleaux Not Reportable 11/03/16 08:25 Hemoglobin C Crystals Not Reportable 11/03/16 08:25 Schistocytes Not Reportable 11/03/16 08:25 Malaria parasites Not Reportable 11/03/16 08:25 Michael Bodies Not Reportable 11/03/16 08:25 Hem Pathologist Commnt No 11/03/16 08:25 PT 17.3 Sec. (12.2-14.9) H 11/03/16 08:25 INR 1.42 (0.87-1.13) H 11/03/16 08:25 APTT 28.8 Sec. (24.2-36.6) 11/03/16 08:25 D-Dimer 2416.88 ng/mlDDU (0-234) H 11/03/16 08:25 POC ABG pH 7.456 (7.35-7.45) H 11/04/16 05:30 POC ABG pCO2 27.9 (35-45) L 11/04/16 05:30 POC ABG pO2 144 (80-105) H 11/04/16 05:30 POC ABG HCO3 19.7 11/04/16 05:30 POC ABG Total CO2 20 11/04/16 05:30 POC ABG O2 Sat 99 11/04/16 05:30 POC ABG Base Excess -4 11/04/16 05:30 VBG pH 6.811 (7.320-7.420) L* 11/03/16 08:25 FiO2 30 % 11/04/16 05:30 Sodium 163 mmol/L (137-145) H* 11/04/16 08:09 Potassium 3.2 mmol/L (3.6-5.0) L 11/04/16 04:40 Chloride 118.5 mmol/L (98-107) H 11/04/16 04:40 Carbon Dioxide 19 mmol/L (22-30) L 11/04/16 08:09 Anion Gap 27 mmol/L 11/04/16 04:40 BUN 41 mg/dL (7-17) H 11/04/16 08:09 Creatinine 3.1 mg/dL (0.7-1.2) H 11/04/16 08:09 Estimated GFR 19 ml/min 11/04/16 08:09 BUN/Creatinine Ratio 13.22 % 11/04/16 08:09 Glucose 113 mg/dL (65-100) H 11/04/16 08:09 POC Glucose 128 (70-105) H 11/04/16 11:56 Hemoglobin A1c 13.5 % (4-6) H 11/03/16 11:44 Lactic Acid 7.10 mmol/L (0.7-2.0) H* 11/03/16 Unknown Calcium 7.6 mg/dL (8.4-10.2) L 11/04/16 08:09 Phosphorus 2.40 mg/dL (2.5-4.5) L D 11/04/16 08:09 Magnesium 2.00 mg/dL (1.7-2.3) 11/04/16 08:09 Total Creatine Kinase 168 units/L (30-135) H 11/03/16 14:22 CK-MB (CK-2) 3.4 ng/mL (0.0-4.0) 11/03/16 14:22 CK-MB (CK-2) Rel Index 2.0 (0-4) 11/03/16 14:22 Troponin T 0.039 ng/mL (0.00-0.029) H 11/03/16 14:22 Triglycerides 613 mg/dL (2-149) H 11/03/16 10:08 Cholesterol 193 mg/dL (50-199) 11/03/16 10:08 LDL Cholesterol Direct TNR 11/03/16 10:08 HDL Cholesterol 25 mg/dL (40-59) L 11/03/16 10:08 Cholesterol/HDL Ratio 7.72 % 11/03/16 10:08 Urine Color Yellow (Yellow) 11/03/16 12:23 Urine Turbidity Slightly-cloudy (Clear) 11/03/16 12:23 Urine pH 5.0 (5.0-7.0) 11/03/16 12:23 Ur Specific [place] 1.020 (1.003-1.030) 11/03/16 12:23 Urine Protein 30 mg/dl mg/dL (Negative) 11/03/16 12:23 Urine Glucose (UA) >=500 mg/dL (Negative) 11/03/16 12:23 Urine Ketones 20 mg/dL (Negative) 11/03/16 12:23 Urine Blood Neg (Negative) 11/03/16 12:23 Urine Nitrite Neg (Negative) 11/03/16 12:23 Urine Bilirubin Neg (Negative) 11/03/16 12:23 Urine Urobilinogen < 2.0 mg/dL (<2.0) 11/03/16 12:23 Ur Leukocyte Esterase Neg (Negative) 11/03/16 12:23 Urine WBC (Auto) 2.0 /HPF (0.0-6.0) 11/03/16 12:23 Urine RBC (Auto) 1.0 /HPF (0.0-6.0) 11/03/16 12:23 U Epithel Cells (Auto) < 1.0 /HPF (0-13.0) 11/03/16 12:23 Urine Mucus Few /HPF 11/03/16 12:23 Urine Creatinine 85.4 mg/dL (0.1-20.0) H 11/03/16 18:36 Urine Sodium 49 mEq/L 11/03/16 18:36 Urine Opiates Screen Presumptive negative 11/03/16 12:23 Urine Methadone Screen Presumptive negative 11/03/16 12:23 Ur Barbiturates Screen Presumptive negative 11/03/16 12:23 Ur Phencyclidine Scrn Presumptive negative 11/03/16 12:23 Ur Amphetamines Screen Presumptive negative 11/03/16 12:23 U Benzodiazepines Scrn Presumptive negative 11/03/16 12:23 Urine Cocaine Screen Presumptive negative 11/03/16 12:23 U Marijuana (THC) Screen Presumptive positive 11/03/16 12:23 Drugs of Abuse Note Disclamer 11/03/16 12:23 Blood Type O POSITIVE 11/03/16 08:45 Antibody Screen TNR 11/03/16 08:45 ISAIAH Antibody Screen Negative 11/03/16 08:45
[2016-11-04 12:39] LABS: Fractional Sodium Excretion 0.9
--- NOTE | 2016-11-04 13:19 | Consultation ---
RENAL CONSULTATION REASON FOR CONSULTATION: Acute renal failure and hyperkalemia. HISTORY OF PRESENT ILLNESS: This 46-year-old -Citizen Of [place] female with history of diabetes, noncompliance, was brought to the Emergency Room by EMS after her friend found her unresponsive. Discussed with the ER physician, Dr. Keller. The patient was reported to have low blood pressure. Initial blood pressure was reported to be 56/34, pulse of 209. The patient had a central line and then she was intubated. She was reported to have a seizure while placing the central line. She was reported to have blood sugar of 1292, BUN of 47, creatinine of 3.00, CO2 of 6, potassium of 9.4. Lactic acid level of 7.5 mg. The patient received medical management for hyperkalemia and was placed on IV insulin drip. The patient's potassium levels have been coming down. PAST MEDICAL HISTORY: Diabetes, hypertension, gastroesophageal reflux disease. PERSONAL HISTORY: No history of smoking or alcohol abuse. FAMILY HISTORY: Positive for diabetes and hypertension.. ALLERGIES: No known allergies. MEDICATIONS: The patient is on insulin drip, aspirin 300 mg a day, metoprolol 5 mg IV q. 8 hours, on IV Levophed drip, IV vancomycin. REVIEW OF SYSTEMS: Unable to obtain. PHYSICAL EXAMINATION: GENERAL: The patient is orally intubated on ventilator, unresponsive. VITAL SIGNS: Blood pressure 114/61, pulse 135-140, afebrile. HEENT: Lips are dry. Conjunctivae pale. NECK: No JVD, no thyroid enlargement. LUNGS: Clear. HEART: S1, S2 tachycardic. ABDOMEN: Bowel sounds present, soft. No masses palpable. EXTREMITIES: No edema. LABORATORY DATA: WBC 22.5, hemoglobin 8.0, hematocrit 34.8, platelets 418. ABG: pH 6.89, pCO2 of 30, pO2 of 553. The latest labs: Sodium 151, potassium 3.5, chloride 106, CO2 is 12, BUN 40, creatinine 2.6, glucose 656, lactic acid 7.5, phosphorus 6.7. Urine toxicology screening positive for marijuana. ASSESSMENT AND PLAN: 1. Acute renal failure, most likely prerenal azotemia with volume depletion and hypotension. Serum creatinine was noted to be 1.2 on 10/08/2016. The patient is at set up for ischemic acute tubular necrosis. 2. Hyperkalemia. 3. Diabetic ketoacidosis. 4. Hypotension. 5. Acute respiratory failure. 6. Encephalopathy. 7. Status post seizure. 8. Leukocytosis with possible sepsis. Agree with pressor support and IV fluids. Monitor glucose levels closely. Hopefully, potassium levels are coming down with correction of acidosis. No need for emergency dialysis at present time. The patient's clinical condition is critical, prognosis guarded. Adjust medications per renal function. Thank you for the consultation. JOB# [id number] AMANDA/BAM
[2016-11-04 15:21] LABS: BUN/Creatinine Ratio 11.87; C-Reactive Protein 3.6 mg/dL (0.00-1.30); Calcium 7.3 mg/dL (8.4-10.2)
--- NOTE | 2016-11-04 18:12 | Cat Scan Report ---
FINAL REPORT PROCEDURE: CT head without contrast. TECHNIQUE: Computerized tomography of the head was performed without contrast material. HISTORY: Altered mental status. COMPARISON: CT head 09/24/2016. Dictation not available. FINDINGS: The ventricles are normal in size. The foley matter and white matter appear normal. There are no mass lesions. There appears to be some very subtle increased attenuation within a few of the cortical sulci. This is very subtle but appears different from the previous study. An example is on image 39 of series 2 in the right frontal lobe. This is compared to the different appearance on the previous study on image 43 of series 2. Another example is in the right parietal lobe on image 35 of series 2. This appears different from a corresponding image 41 of series 2 on the previous study. The etiology for these subtle changes is not clear. It could represent a very tiny amount of subarachnoid hemorrhage, perhaps remote. It is wondered if the patient has had any recent head trauma. It could also represent better visualization of superficial cortical veins or possibly new thrombosis of cortical veins. Clinical correlation is recommended. The calvarium appears intact. The mastoid air cells and paranasal sinuses are clear as far as visualized. IMPRESSION: Very subtle change in the extra-axial space as discussed above. Possibility of tiny amount of subarachnoid hemorrhage possible.
[2016-11-04] MEDS: D5/0.45NS 1,000 ML IV SCH (18:13)
[2016-11-04 20:58] LABS: ISTAT Base Excess -7; ISTAT HCO3 18.8; ISTAT PCO2 33.5 (35-45); ISTAT PH 7.358 (7.35-7.45); ISTAT PO2 157 (80-105); ISTAT SO2 99; ISTAT TCO2 20
--- NOTE | 2016-11-05 01:51 | Consultation ---
PULMONARY CRITICAL CARE CONSULT REQUESTING PHYSICIAN: Dr. Weber. REASON FOR CONSULTATION: Acute hypoxemic respiratory failure, diabetic ketoacidosis. CHIEF COMPLAINT AND HISTORY OF PRESENT ILLNESS: The patient is a 46-year-old -[place] female known to us in this facility from prior admissions with past medical history significant amongst other things for a diagnosis of diabetes, came to the Emergency Room yesterday after her friends found her unresponsive. Blood sugar was greater than 500. She was appearing very ill. Upon arrival in the Emergency Room, she appeared to have a seizure while a central line was being placed. It did stop prior to Ativan. She had a slight apneic episode and the decision was made to intubate her for airway protection. She was also hypotensive, had a little bit of supraventricular tachycardia. She received vasopressor support at that time and patient was ultimately brought up to the Intensive Care Unit. There was no evidence of ST elevation UT. In the unit, she reportedly was initially agitated, was sedated. By the time I stopped by to see her, she was on a fentanyl drip at 2 mcg/kg/hour. She was not following my commands. At that time, she was well sedated. She remained on mechanical ventilator. A trial of spontaneous breathing showed that she was pulling spontaneous breaths. I do not have any history of emesis or overt aspiration. Now with regards to the patient's tobacco use/abuse history, that is unknown. There was also a question that the patient may have fallen at home and was found unconscious. That really is as much of the history of presentation as we have. PAST MEDICAL HISTORY: Diabetes and hypertension. Medical noncompliance. PAST SURGICAL HISTORY: Unknown. MEDICATIONS: She was on at the time I stopped by to see her, according to the medication administration record, included the following: She was on simethicone p.r.n., DuoNeb treatments, she got a onetime treatment earlier. She is on albuterol 2.5 mg inhaled q. 4 hours p.r.n. shortness of breath, aspirin 300 mg daily, Dulcolax p.r.n. She was on D5 half NS DKA protocol, Pepcid 20 mg IV daily, fentanyl drip was going at 2 mcg/kg/hour, heparin sodium 5000 units subQ q. 12, Levaquin 500 mg IV q. 48 hours. Metoprolol 5 mg IV q. 6 hours is scheduled. Levophed drip had been going at 2 mcg/minute, is off now I believe. Zosyn 2.25 grams IV q. 8 hours, vancomycin she received a one-time dose in the Emergency Room and will be dosed per pharmacy. ALLERGIES: No known drug allergies. DIET: Thin lady, acute weight loss or gain history is unknown. FAMILY AND SOCIAL HISTORY: Apparently lives in the community. Alcohol, tobacco, or illicit drug use or abuse history unknown. REVIEW OF SYSTEMS: Unobtainable secondary to the patient's medical and mental condition. There was a question of a possible seizure activity in the Emergency Room. Since she has been here, no gross hematochezia or melena. No gross hematuria. No bloody tracheal secretions. No hematemesis. Review of systems, otherwise unobtainable. PHYSICAL EXAMINATION: VITAL SIGNS: At initial presentation in the emergency room, she was hypothermic, temperature 95.0 rectally with a pulse of , respiratory rate of 16, blood pressure of 79/45, oxygen sats were 100%, inspired oxygen concentration was not recorded. HEAD, EYES, EARS, NOSE AND THROAT: Pupils are equal, round, about 3 mm, reactive to light, sluggishly. Extraocular muscle movements could not be assessed. Grossly, there were no palpable lymph nodes in the supraclavicular or submandibular lymph node chains. Tracheostomy tube was in place, taped at the lips around 23 cm. LUNGS: Auscultation of both lung pearson really unremarkable at the time of my exam, Lungs are clear bilaterally. HEART: Heart sounds 1 and 2 are heard. They were regular in rate and rhythm at the time of my evaluation. ABDOMEN: Soft, flat. Bowel sounds are positive, nontender. EXTREMITIES: Without overt digital clubbing, cyanosis, or pedal edema. NEUROLOGIC: The exam was grossly nonfocal, but she is sedated at this point secondary to severe agitation. LABORATORY DATA: From my review are as follows: Admission white cell count 22,500 with a hemoglobin of 8.0, hematocrit 34.8, platelets of 418. No band forms reported. INR was 1.42, D-dimer was 2416. Arterial blood gas showed a pH of 6.90, essentially with a pCO2 of 30 and a pO2 of 553, 100% FIO2 ventilator settings not recorded. Serum sodium at that time was 140, potassium 3.9, chloride 99, bicarbonate 6, BUN 47, creatinine 3.0 and glucose of 1292. Hemoglobin A1c 13.5. Lactic acid level was 8.3. Troponin 0.033, triglycerides were elevated at 613. Urinalysis negative for leukocyte esterase and nitrites. Urine drug screen was presumptive positive for tetrahydrocannabinol, but negative otherwise. Lactic acid level was trending down, but was still at 7.1 yesterday. I do not have a CRP level on her. MICROBIOLOGY: All cultures no growth to date. RADIOGRAPHIC STUDIES: Chest x-ray was done. I have reviewed the radiologist's interpretation and I am pulling up that film. It describes as unremarkable AP chest with adequate endotracheal tube positioning. I have reviewed it too and I do agree with that description. ASSESSMENT AND PLAN: We have a middle-aged lady in with altered mental status, reportedly found unconscious, might have fallen down according to the history and with diabetic ketoacidosis. From a respiratory standpoint, we will hold sedation now and begin spontaneous breathing trials. Aspiration precautions and other ventilator bundles have been instituted. Head of bed will be kept greater than or equal to 35-40 degrees. Bronchodilators will be on a p.r.n. basis and the plan will be to extubate her as soon as we can. Oxygen will be weaned to keep sats greater than or equal to about 92-94% in the short term. Now there is a question of the elevated D-dimer. With her serum creatinine, she really would not be a candidate for CT angio at this time. I do feel the azotemia should improve shortly with treatment of the DKA. Bilateral lower extremity Dopplers will be ordered stat and workup will depend on those results for now. No indication for full anticoagulation in my opinion. From a cardiovascular standpoint, she has been weaned of vasopressors. Volume resuscitation should continue and Cardiology evaluation will be at the behest of the attending physician. I will defer to Cardiology for further workup. From a renal standpoint, I note the azotemia. Nephrology is on the case. She is nonoliguric. It is improving with volume resuscitation. We will see how she does over time. Electrolytes will be followed and corrected as necessary. I have started free water flushes 300 mL every 4 hours, to try and improve the hyponatremia. Her current serum sodium is 163. From an Infectious Disease standpoint, she is on broad-spectrum anti-infective therapy. I will get a CRP level. I note the lactic acid level. I do feel we should be able to deescalate antibiotics soon, but we will just wait for a CRP level to come back and we will follow blood cultures. Ultimately anti-infectives will be deescalated based on results of clinical and microbiologic data. She is already doing better from blood pressure standpoint. From a [employer] standpoint, with a history of fall and altered mental status being found unconscious, a CT of the brain is appropriate. A noncontrast CT will be ordered to be done now as soon as possible and further changes in management will depend on the results of that. Neurology evaluation will be at the behest of the attending physician. An EEG may be of benefit based on the questionable seizure, but we will see how she does clinically. From a general and hospital healthcare maintenance standpoint, she has been started on GI and DVT prophylaxis. Flu and pneumonia vaccination will be per protocol. Thank you very much for the consult Dr. Weber. We will follow along and make further recommendations as the picture progresses/becomes clearer. She is critically ill, on life sustaining interventions, including full mechanical ventilator support at risk for further decompensation including . At this time I spent about 35-40 minutes of critical care time without overlap excluding any procedural time that may be necessary. JOB# [id number] CAYETANO/BAM
[2016-11-05] MEDS: D5/0.45NS 1,000 ML IV SCH ×2 (02:02→10:31)
[2016-11-05] MEDS: ZOSYN/NS 2.25 GM/50ML 2.25 GM/50 ML BAG IV SCH ×3 (05:04→21:30)
[2016-11-05 05:56] LABS: Basophils % (Auto) 0.6 % (0.0-1.8); Eosinophils % (Auto) 0.2 % (0.0-4.3); Hematocrit 23.8 % (30.3-42.9); Hemoglobin 7.4 gm/dl (10.1-14.3); Mean Corpuscular HGB Conc 31 % (30-34); Mean Corpuscular Hemoglobin 28 pg (28-32); Mean Corpuscular Volume 89 fl (79-97); Platelet Count 211 K/mm3 (140-440); Red Blood Count 2.67 M/mm3 (3.65-5.03); White Blood Count 12.8 K/mm3 (4.5-11.0)
[2016-11-05 06:00] LABS: Red Cell Distribution Width 20.8 % (13.2-15.2)
[2016-11-05] MEDS: NovoLIN R 100 UNITS in NACL 0.9% 99 ML IV SCH (06:12)
[2016-11-05] MEDS: LOPRESSOR IV SCH ×4 (07:30→18:26)
[2016-11-05 08:55] LABS: BUN/Creatinine Ratio 10.68; Chloride 123.2 mmol/L (98-107)
[2016-11-05 09:04] LABS: Potassium 2.8 mmol/L (3.6-5.0)
--- NOTE | 2016-11-05 09:44 | Vascular Lab Report ---
LOWER EXTREMITY VENOUS DUPLEX: REASON FOR EXAM: Deep venous thrombus. Intubated. Elevated D Dimer.. COMMENTS ON THE RIGHT: All veins visualized are freely compressible without evidence of internal echogenicity. Flow is spontaneous and phasic throughout. COMMENTS ON THE LEFT: All veins visualized are freely compressible without evidence of internal echogenicity. Flow is spontaneous and phasic throughout. IMPRESSION: No evidence of acute or chronic deep venous thrombosis in either lower extremity.
[2016-11-05] MEDS: HEPARIN SUB-Q SCH (10:00)
[2016-11-05] MEDS: KCL 20MEQ/100ML 20 MEQ/100 ML BAG IV SCH ×3 (10:15→12:15)
[2016-11-05] MEDS: PEPCID IV SCH (10:30)
[2016-11-05] MEDS: ASPIRIN PR SCH (10:30)
--- NOTE | 2016-11-05 11:10 | Progress Note ---
Assessment and Plan Assessment: Transient ST segment elevations - resolved; Walter negative for AMI. DKA / hyperkalemia - now with hypokalemia. Acute respiratory failure - intubated Sinus tachycardia Hypotension / septic shock / lactic acidosis CMP - EF 40 - 45%. ARF HTN DM Hypocalcemia Elevated DDimer Noncompliance Marijuana use Hypernatremia Anemia Plan: Echo reviewed - EF 40 - 45%, abnormal LV diastolic function, moderate MR, mild TR, RVSP 52mmHg, moderate pulmonary HTN. Cont IV lopressor 5mg Q6H. Hold for HR <60 and SBP <100. No ACEI/ARB at this time in setting of ARF. Cont ASA. For V/Q scan to r/o PE once extubated. Replete K+ PRN per nephrology/primary. Recommend to maintain serum K+ ~4 from cardiac standpoint. Consider ischemic evaluation once medically stabilized or earlier if it becomes emergently indicated. The patient has been seen in conjunction with Dr. Colmenares who agrees with the assessment and plan of care. Subjective Date of service: 11/05/16 Principal diagnosis: DKA Interval history: Pt intubated, off sedation, responds to painful stimuli. In ST on tele, HR 120s , BPs stable. No family at bedside. Objective Last Vital Signs Temp 98.7 F 11/05/16 08:00 Pulse 116 H 11/05/16 09:40 Resp 16 11/05/16 09:40 BP 136/89 11/05/16 09:40 Pulse Ox 100 11/05/16 09:40 - Physical Examination General: Other (intubated) HEENT: Positive: PERRL, Normocephaly, Mucus Membranes Moist Neck: Positive: neck supple, trachea midline Cardiac: Positive: Regular Rhythm, S1/S2, Tachycardia Lungs: Positive: Decreased Breath Sounds, Ventilated Respirations Neuro: Positive: Other (intubated) Abdomen: Positive: Soft, Active Bowel Sounds Skin: Positive: Clear. Negative: Rash, Wound Musculoskeletal: No Fluid Collection, No Pain, Normal Range of Motion Extremities: Present: upper extr. pulses, lower extr. pulses. Absent: edema - Labs and Meds CBC 11/05/16 Range/Units 05:10 WBC 12.8 H (4.5-11.0) K/mm3 RBC 2.67 L (3.65-5.03) M/mm3 Hgb 7.4 L (10.1-14.3) gm/dl Hct 23.8 L D (30.3-42.9) % Plt Count 211 (140-440) K/mm3 Lymph # 1.7 (1.2-5.4) K/mm3 [place] # 0.6 (0.0-0.8) K/mm3 Eos # 0.0 (0.0-0.4) K/mm3 Baso # 0.1 (0.0-0.1) K/mm3 Comprehensive Metabolic Panel 11/04/16 11/04/16 11/05/16 Range/Units 14:40 14:40 07:40 Sodium 164 H* 163 H* 161 H* (137-145) mmol/L Potassium 3.0 L 2.8 L* (3.6-5.0) mmol/L Chloride 123.0 H 123.2 H (98-107) mmol/L Carbon Dioxide 22 18 L (22-30) mmol/L BUN 38 H 31 H (7-17) mg/dL Creatinine 3.2 H 3.2 H 2.9 H (0.7-1.2) mg/dL Glucose 176 H 87 (65-100) mg/dL Calcium 7.3 L 7.0 L (8.4-10.2) mg/dL - Imaging and Cardiology EKG: report reviewed, image reviewed Echo: report reviewed - Telemetry EKG Rhythm: Sinus Tachycardia - EKG Sinus rhythms and dysrhythmias: sinus tachycardia
--- NOTE | 2016-11-05 11:31 | Progress Note ---
Assessment and Plan - Patient Problems (1) Acute respiratory failure with hypoxemia Current Visit: Yes Status: Acute Plan to address problem: - continue bronchodilators and pulmonary toilet - continue aspiration precautions / VAP bundles - wean oxygen to keep sats > 94% - Hold on extubation till mental status improved - continue daytime PSV trials as tolerated (2) Altered mental status Current Visit: Yes Status: Acute Qualifiers: Altered mental status type: unspecified Coma depth: C Coma timing: C Qualified Code(s): R41.82 - Altered mental status, unspecified Plan to address problem: - CT brain suggest SAH - neurology consult placed - will get MRI & MRA of brain without contrast re: azotemia (3) D-dimer, elevated Current Visit: Yes Status: Acute Plan to address problem: - VTE w/up negative - on SCD's - holding heparin till SAH ruled out (4) DKA (diabetic ketoacidoses) Current Visit: Yes Status: Acute Qualifiers: Diabetes mellitus type: type 1 Diabetes mellitus complication detail: with coma Diabetes mellitus nursing home insulin use: D Qualified Code(s): E10.11 - Type 1 diabetes mellitus with ketoacidosis with coma Plan to address problem: - transitioning to long acting insulin - also SSI (5) Seizures Current Visit: Yes Status: Acute Plan to address problem: - no repeat seizures - prn Ativan - neurology evaluation ongoing (6) Acute hypernatremia Current Visit: No Status: Acute Plan to address problem: - change to D5W from D51/2NS - continue free water flushes (7) Acute renal failure Current Visit: No Status: Acute Qualifiers: Acute renal failure type: A Plan to address problem: - non oliguric - continue volume resuscitation - will give D5W @ 125mls/hr X 3 liters then back to 1/2 NS re: azotemia - replace potassium - nephrology following (8) Discharge planning issues Current Visit: No Status: Acute Plan to address problem: - will complete neurology evaluation before extubation; there was the question of a fall and witnessed seizures at home and in ER so need to r/o primary neurological event also ...she remains critically ill on life sustaining interventions including MVS and at risk for further deterioration including ...32' CCT Subjective Date of service: 11/05/16 Principal diagnosis: Acute Hypoxemic Respiratory Failure; DKA Interval history: Seen and examined at bedside; 24 hour events reviewed; nursing and respiratory care staff consulted; no adverse overnight events reported to me; on PSV and tolerating well; on sedation holiday but remains lethargic; CT brain suggest's possible SAH; no emesis or overt aspiration Objective Vital Signs - 12hr 11/05/16 11/05/16 11/05/16 00:00 04:00 05:00 Temperature 100.6 F H 100.6 F H Pulse Rate 121 H 113 H Pulse Rate [ 112 H 122 H From Monitor] Respiratory 15 14 15 Rate Blood Pressure 168/98 154/103 O2 Sat by Pulse 100 100 100 Oximetry 11/05/16 11/05/16 11/05/16 07:30 08:00 08:20 Temperature 98.7 F Pulse Rate 112 H Pulse Rate [ 112 H From Monitor] Respiratory Rate Blood Pressure 155/63 O2 Sat by Pulse Oximetry 11/05/16 11/05/16 09:00 09:40 Temperature Pulse Rate 113 H 116 H Pulse Rate [ From Monitor] Respiratory 16 Rate Blood Pressure 144/94 136/89 O2 Sat by Pulse 100 100 Oximetry Constitutional: no acute distress, lethargic Eyes: non-icteric ENT: oropharynx moist Neck: supple, no lymphadenopathy Ascultation: Bilateral: diminished breath sounds, rhonchi Cardiovascular: regular rate and rhythm Gastrointestinal: normoactive bowel sounds, soft, non-tender, non-distended Integumentary: normal Extremities: no cyanosis, no edema, pulses normal, no ischemia or petechiae Neurologic: unable to assess Psychiatric: other (sedated) CBC and BMP: 11/05/16 05:10 11/05/16 07:40 ABG, PT/INR, D-dimer: ABG POC ABG pH 7.358 (7.35-7.45) 11/04/16 20:03 POC ABG pCO2 33.5 (35-45) L 11/04/16 20:03 POC ABG pO2 157 (80-105) H 11/04/16 20:03 POC ABG HCO3 18.8 11/04/16 20:03 POC ABG Total CO2 20 11/04/16 20:03 POC ABG O2 Sat 99 11/04/16 20:03 PT/INR, D-dimer PT 17.3 Sec. (12.2-14.9) H 11/03/16 08:25 INR 1.42 (0.87-1.13) H 11/03/16 08:25 D-Dimer 2416.88 ng/mlDDU (0-234) H 11/03/16 08:25 Abnormal lab findings: Abnormal Labs 11/03/16 11/03/16 11/03/16 11:45 14:22 14:22 WBC RBC Hgb Hct RDW Lymph % (Auto) Seg Neutrophils % Seg Neutrophils # POC ABG pH POC ABG pCO2 POC ABG pO2 Sodium 152 H Potassium Chloride Carbon Dioxide 6 L* 11 L BUN 47 H 43 H Creatinine 3.0 H 2.8 H Glucose 1292 H* 977 H* POC Glucose Lactic Acid Calcium 7.8 L 7.6 L Phosphorus Total Creatine Kinase 168 H Troponin T 0.039 H C-Reactive Protein Urine Creatinine 11/03/16 11/03/16 11/03/16 14:23 15:13 16:15 WBC RBC Hgb Hct RDW Lymph % (Auto) Seg Neutrophils % Seg Neutrophils # POC ABG pH POC ABG pCO2 POC ABG pO2 Sodium 151 H Potassium 3.5 L Chloride Carbon Dioxide 12 L BUN 40 H Creatinine 2.6 H Glucose 656 H* POC Glucose > 500 H Lactic Acid 7.50 H* Calcium 7.2 L Phosphorus Total Creatine Kinase Troponin T C-Reactive Protein Urine Creatinine 11/03/16 11/03/16 11/03/16 18:06 18:36 19:06 WBC RBC Hgb Hct RDW Lymph % (Auto) Seg Neutrophils % Seg Neutrophils # POC ABG pH POC ABG pCO2 POC ABG pO2 Sodium Potassium Chloride Carbon Dioxide BUN Creatinine Glucose POC Glucose 418 H 330 H Lactic Acid Calcium Phosphorus Total Creatine Kinase Troponin T C-Reactive Protein Urine Creatinine 85.4 H 11/03/16 11/03/16 11/03/16 20:51 20:56 22:01 WBC RBC Hgb Hct RDW Lymph % (Auto) Seg Neutrophils % Seg Neutrophils # POC ABG pH POC ABG pCO2 POC ABG pO2 Sodium 157 H Potassium 3.4 L Chloride 116.1 H Carbon Dioxide 19 L D BUN 39 H Creatinine 2.6 H Glucose 165 H POC Glucose 178 H 110 H Lactic Acid Calcium 7.7 L Phosphorus Total Creatine Kinase Troponin T C-Reactive Protein Urine Creatinine 11/03/16 11/04/16 11/04/16 Unknown 00:17 00:30 WBC RBC Hgb Hct RDW Lymph % (Auto) Seg Neutrophils % Seg Neutrophils # POC ABG pH POC ABG pCO2 POC ABG pO2 Sodium 158 H Potassium 3.2 L Chloride 115.7 H Carbon Dioxide 19 L BUN 41 H Creatinine 2.9 H Glucose 118 H POC Glucose 186 H Lactic Acid 7.10 H* Calcium 7.5 L Phosphorus Total Creatine Kinase Troponin T C-Reactive Protein Urine Creatinine 11/04/16 11/04/16 11/04/16 01:15 02:04 03:18 WBC RBC Hgb Hct RDW Lymph % (Auto) Seg Neutrophils % Seg Neutrophils # POC ABG pH POC ABG pCO2 POC ABG pO2 Sodium Potassium Chloride Carbon Dioxide BUN Creatinine Glucose POC Glucose 171 H 113 H 115 H Lactic Acid Calcium Phosphorus Total Creatine Kinase Troponin T C-Reactive Protein Urine Creatinine 11/04/16 11/04/16 11/04/16 03:57 04:40 05:01 WBC RBC Hgb Hct RDW Lymph % (Auto) Seg Neutrophils % Seg Neutrophils # POC ABG pH POC ABG pCO2 POC ABG pO2 Sodium 161 H* Potassium 3.2 L Chloride 118.5 H Carbon Dioxide 19 L BUN 42 H Creatinine 3.0 H Glucose 102 H POC Glucose 112 H 115 H Lactic Acid Calcium 7.5 L Phosphorus Total Creatine Kinase Troponin T C-Reactive Protein Urine Creatinine 11/04/16 11/04/16 11/04/16 05:30 08:07 08:09 WBC RBC Hgb Hct RDW Lymph % (Auto) Seg Neutrophils % Seg Neutrophils # POC ABG pH 7.456 H POC ABG pCO2 27.9 L POC ABG pO2 144 H Sodium 163 H* Potassium Chloride Carbon Dioxide 19 L BUN 41 H Creatinine 3.1 H Glucose 113 H POC Glucose 124 H Lactic Acid Calcium 7.6 L Phosphorus Total Creatine Kinase Troponin T C-Reactive Protein Urine Creatinine 11/04/16 11/04/16 11/04/16 08:09 09:59 11:54 WBC RBC Hgb Hct RDW Lymph % (Auto) Seg Neutrophils % Seg Neutrophils # POC ABG pH POC ABG pCO2 POC ABG pO2 Sodium Potassium Chloride Carbon Dioxide BUN Creatinine Glucose POC Glucose 113 H Lactic Acid Calcium Phosphorus 2.40 L D Total Creatine Kinase Troponin T C-Reactive Protein Urine Creatinine 104.4 H 11/04/16 11/04/16 11/04/16 11:56 14:40 14:40 WBC RBC Hgb Hct RDW Lymph % (Auto) Seg Neutrophils % Seg Neutrophils # POC ABG pH POC ABG pCO2 POC ABG pO2 Sodium 164 H* 163 H* Potassium 3.0 L Chloride 123.0 H Carbon Dioxide BUN 38 H Creatinine 3.2 H 3.2 H Glucose 176 H POC Glucose 128 H Lactic Acid Calcium 7.3 L Phosphorus Total Creatine Kinase Troponin T C-Reactive Protein 3.60 H Urine Creatinine 11/04/16 11/04/16 11/04/16 14:47 15:51 18:02 WBC RBC Hgb Hct RDW Lymph % (Auto) Seg Neutrophils % Seg Neutrophils # POC ABG pH POC ABG pCO2 POC ABG pO2 Sodium Potassium Chloride Carbon Dioxide BUN Creatinine Glucose POC Glucose 198 H 139 H 177 H Lactic Acid Calcium Phosphorus Total Creatine Kinase Troponin T C-Reactive Protein Urine Creatinine 11/04/16 11/04/16 11/04/16 19:59 20:03 20:54 WBC RBC Hgb Hct RDW Lymph % (Auto) Seg Neutrophils % Seg Neutrophils # POC ABG pH POC ABG pCO2 33.5 L POC ABG pO2 157 H Sodium Potassium Chloride Carbon Dioxide BUN Creatinine Glucose POC Glucose 191 H 118 H Lactic Acid Calcium Phosphorus Total Creatine Kinase Troponin T C-Reactive Protein Urine Creatinine 11/04/16 11/04/16 11/05/16 23:10 23:56 00:59 WBC RBC Hgb Hct RDW Lymph % (Auto) Seg Neutrophils % Seg Neutrophils # POC ABG pH POC ABG pCO2 POC ABG pO2 Sodium Potassium Chloride Carbon Dioxide BUN Creatinine Glucose POC Glucose 185 H 280 H 167 H Lactic Acid Calcium Phosphorus Total Creatine Kinase Troponin T C-Reactive Protein Urine Creatinine 11/05/16 11/05/16 11/05/16 03:10 04:06 04:59 WBC RBC Hgb Hct RDW Lymph % (Auto) Seg Neutrophils % Seg Neutrophils # POC ABG pH POC ABG pCO2 POC ABG pO2 Sodium Potassium Chloride Carbon Dioxide BUN Creatinine Glucose POC Glucose 173 H 269 H 205 H Lactic Acid Calcium Phosphorus Total Creatine Kinase Troponin T C-Reactive Protein Urine Creatinine 11/05/16 11/05/16 11/05/16 05:10 06:05 07:40 WBC 12.8 H RBC 2.67 L Hgb 7.4 L Hct 23.8 L D RDW 20.8 H Lymph % (Auto) 13.0 L Seg Neutrophils % 81.3 H Seg Neutrophils # 10.4 H POC ABG pH POC ABG pCO2 POC ABG pO2 Sodium 161 H* Potassium 2.8 L* Chloride 123.2 H Carbon Dioxide 18 L BUN 31 H Creatinine 2.9 H Glucose POC Glucose 108 H Lactic Acid Calcium 7.0 L Phosphorus Total Creatine Kinase Troponin T C-Reactive Protein Urine Creatinine Chest x-ray: image reviewed
[2016-11-05 12:26] LABS: ISTAT Base Excess -11; ISTAT HCO3 14.9; ISTAT PCO2 26.8 (35-45); ISTAT PH 7.352 (7.35-7.45); ISTAT PO2 169 (80-105); ISTAT SO2 99; ISTAT TCO2 16
[2016-11-05] MEDS ORDERED: VERSED IV PRN (12:59)
[2016-11-05] MEDS ORDERED: LEVEMIR SUB-Q SCH (13:00)
[2016-11-05] MEDS: LEVAQUIN 500MG/100ML 500 MG/100 ML BAG IV SCH (13:08)
--- NOTE | 2016-11-05 13:14 | Progress Note ---
Assessment and Plan - Patient Problems (1) Acute respiratory failure with hypoxemia Current Visit: Yes Status: Acute (2) DKA (diabetic ketoacidoses) Current Visit: Yes Status: Acute Qualifiers: Diabetes mellitus type: type 1 Diabetes mellitus complication detail: with coma Diabetes mellitus fdc insulin use: D Qualified Code(s): E10.11 - Type 1 diabetes mellitus with ketoacidosis with coma (3) Hypokalemia Current Visit: Yes Status: Acute Plan to address problem: supplements as ordered. Monitor K,Mg.P (4) Altered mental status Current Visit: Yes Status: Acute Qualifiers: Altered mental status type: unspecified Coma depth: C Coma timing: C Qualified Code(s): R41.82 - Altered mental status, unspecified (5) Acute renal failure Current Visit: No Status: Acute Qualifiers: Acute renal failure type: A Plan to address problem: may be prerenal with possible ATN. Pt is non oliguric at present time. Adjust meds per renal function. (6) Acute hypernatremia Current Visit: No Status: Acute Plan to address problem: increase free water intake, avoid rapid correction. Check urine studies (7) Anemia Current Visit: No Status: Acute Qualifiers: Anemia type: A Iron deficiency anemia type: I Vitamin B12 deficiency anemia type: V Folate deficiency anemia type: F Bone marrow failure anemia type: B Hemolytic anemia type: H Other causes of anemia: O Subjective Date of service: 11/05/16 Principal diagnosis: Acute Hypoxemic Respiratory Failure; DKA Interval history: pt is on ventilator, noted to be restless, non communicative Objective - Vital Signs Vital signs: Vital Signs - 12hr 11/05/16 11/05/16 11/05/16 04:00 05:00 07:30 Temperature 100.6 F H Pulse Rate 113 H 112 H Pulse Rate [ 122 H From Monitor] Respiratory 14 15 Rate Blood Pressure 154/103 155/63 O2 Sat by Pulse 100 100 Oximetry 11/05/16 11/05/16 11/05/16 08:00 08:20 09:00 Temperature 98.7 F Pulse Rate 113 H Pulse Rate [ 112 H From Monitor] Respiratory Rate Blood Pressure 144/94 O2 Sat by Pulse 100 Oximetry 11/05/16 11/05/16 09:40 12:00 Temperature 99.6 F Pulse Rate 116 H Pulse Rate [ From Monitor] Respiratory 16 Rate Blood Pressure 136/89 O2 Sat by Pulse 100 Oximetry - General Appearance General appearance: chronically ill, sedated on ventilator EENT: mucous membranes dry Neck: no JVD Respiratory: Present: Clear to Ascultation Cardiology: regular, tachycardia Gastrointestinal: normoactive bowel sounds Musculoskeletal: other (no edema) - Lab 11/05/16 05:10 11/05/16 07:40 Most recent lab results Calcium 7.0 mg/dL (8.4-10.2) L 11/05/16 07:40 Phosphorus 2.40 mg/dL (2.5-4.5) L D 11/04/16 08:09 Magnesium 2.00 mg/dL (1.7-2.3) 11/04/16 08:09 Urine Creatinine 104.4 mg/dL (0.1-20.0) H 11/04/16 11:54 Urine Sodium 77 mEq/L 11/04/16 11:54
[2016-11-05] MEDS: D5W 1,000 ML IV SCH ×2 (13:26→23:04)
[2016-11-05] MEDS: NOVOLOG SUB-Q SCH ×2 (13:27→18:26)
--- NOTE | 2016-11-05 15:31 | Magnetic Resonance Report ---
MRI of the brain without contrast. History: Headache/altered mental status/subarachnoid hemorrhage. Findings: The posterior fossa is normal. The ventricles are normal in size and contour. On the FLAIR sequence, there are areas of hyperintense signal in the cortical sulci of the right frontal lobe and to a lesser degree the right parietal lobe. There may be similar signal abnormality in the cortical sulci of the left temporal lobe. There is no evidence of a mass, and no extra axial collections are seen. The foley-white matter junction is normal. The pituitary gland is normal. The visualized extracranial structures are unremarkable. Impression: Confirmation of subacute subarachnoid hemorrhage, most pronounced in the right frontal lobe as detailed above.
--- NOTE | 2016-11-05 18:09 | Progress Note ---
Assessment and Plan Assessment and plan: 46-year-old female with history of diabetes hypertension noncompliant down and unresponsive in the field presented with DKA and septic shock. Total Time Spent with Patient (Minutes): 40 - Patient Problems (1) Acute respiratory failure with hypoxemia Current Visit: Yes Status: Acute Plan to address problem: Acute hypoxic respiratory failure still unable to wean patient from ventilator. Continue to treat underlying etiology. So may be secondary to a neurologic component patient MRI showed small bleed. (2) Altered mental status Current Visit: Yes Status: Acute Qualifiers: Altered mental status type: unspecified Coma depth: C Coma timing: C Qualified Code(s): R41.82 - Altered mental status, unspecified Plan to address problem: Altered mental status multifactorial septic shock acute respiratory failure intracranial bleed. (3) DKA (diabetic ketoacidoses) Current Visit: Yes Status: Acute Qualifiers: Diabetes mellitus type: type 1 Diabetes mellitus complication detail: with coma Diabetes mellitus cigar roller insulin use: D Qualified Code(s): E10.11 - Type 1 diabetes mellitus with ketoacidosis with coma Plan to address problem: Patient unresponsive nothing by mouth responding to insulin drip. We'll continue insulin drip for now monitor electrolytes. (4) Hyperkalemia Current Visit: Yes Status: Resolved (5) Hypokalemia Current Visit: Yes Status: Acute (6) Respiratory failure Current Visit: Yes Status: Acute Qualifiers: Chronicity: acute Respiratory failure complication: unspecified whether with hypoxia or hypercapnia Qualified Code(s): J96.00 - Acute respiratory failure, unspecified whether with hypoxia or hypercapnia (7) Septic shock Current Visit: Yes Status: Acute Plan to address problem: Patient septic shock was on pressors still acutely ill. Improving maintaining blood pressure continue vancomycin and Zosyn. Broad spectrum anabiotic's follow -up microbiology. (8) Acute renal failure Current Visit: No Status: Acute Qualifiers: Acute renal failure type: A Plan to address problem: Patient with acute renal failure secondary to septic shock. History Interval history: Patient remains intubated and sedated at present. Nonresponsive. 46-year-old history hypertension diabetes noncompliant was found down unresponsive found to be in DKA. Hospital course complicated today by MRI which shows a small bleed. Hospitalist Physical - Constitutional Vitals: Temp Pulse Resp BP Pulse Ox 99.7 F H 117 H 18 143/100 100 06/01/17 16:00 11/05/16 17:56 11/05/16 17:56 11/05/16 17:56 11/05/16 17:56 General appearance: Present: mild distress, other (ill-appearing; intubated) - EENT Eyes: Present: PERRL ENT: other - Neck Neck: Present: supple, normal ROM - Respiratory Respiratory: bilateral: diminished, rales - Cardiovascular Rhythm: regular Heart Sounds: Present: S1 & S2, systolic murmur - Extremities Extremities: no ischemia, pulses intact, pulses symmetrical, abnormal - Abdominal General gastrointestinal: non-tender, tender, non-distended - Neurologic Neurologic: focal deficits Results - Labs CBC & Chem 7: 11/05/16 05:10 11/05/16 07:40 Labs: Laboratory Last Values WBC 12.8 K/mm3 (4.5-11.0) H 11/05/16 05:10 RBC 2.67 M/mm3 (3.65-5.03) L 11/05/16 05:10 Hgb 7.4 gm/dl (10.1-14.3) L 11/05/16 05:10 Hct 23.8 % (30.3-42.9) L D 11/05/16 05:10 MCV 89 fl (79-97) D 11/05/16 05:10 MCH 28 pg (28-32) 11/05/16 05:10 MCHC 31 % (30-34) 11/05/16 05:10 RDW 20.8 % (13.2-15.2) H 11/05/16 05:10 Plt Count 211 K/mm3 (140-440) 11/05/16 05:10 Lymph % (Auto) 13.0 % (13.4-35.0) L 11/05/16 05:10 [place] % (Auto) 4.9 % (0.0-7.3) 11/05/16 05:10 Eos % (Auto) 0.2 % (0.0-4.3) 11/05/16 05:10 Baso % (Auto) 0.6 % (0.0-1.8) 11/05/16 05:10 Lymph # 1.7 K/mm3 (1.2-5.4) 11/05/16 05:10 [place] # 0.6 K/mm3 (0.0-0.8) 11/05/16 05:10 Eos # 0.0 K/mm3 (0.0-0.4) 11/05/16 05:10 Baso # 0.1 K/mm3 (0.0-0.1) 11/05/16 05:10 Add Manual Diff Complete 11/03/16 08:25 Total Counted 100 11/03/16 08:25 Seg Neutrophils % 81.3 % (40.0-70.0) H 11/05/16 05:10 Seg Neuts % (Manual) 78.0 % (40.0-70.0) H 11/03/16 08:25 Band Neutrophils % 2.0 % 11/03/16 08:25 Lymphocytes % (Manual) 13.0 % (13.4-35.0) L 11/03/16 08:25 Reactive Lymphs % (Man) 0 % 11/03/16 08:25 Monocytes % (Manual) 7.0 % (0.0-7.3) 11/03/16 08:25 Eosinophils % (Manual) 0 % (0.0-4.3) 11/03/16 08:25 Basophils % (Manual) 0 % (0.0-1.8) 11/03/16 08:25 Metamyelocytes % 0 % 11/03/16 08:25 Myelocytes % 0 % 11/03/16 08:25 Promyelocytes % 0 % 11/03/16 08:25 Blast Cells % 0 % 11/03/16 08:25 Nucleated RBC % Not Reportable 11/03/16 08:25 Seg Neutrophils # 10.4 K/mm3 (1.8-7.7) H 11/05/16 05:10 Seg Neutrophils # Man 17.6 K/mm3 (1.8-7.7) H 11/03/16 08:25 Band Neutrophils # 0.5 K/mm3 11/03/16 08:25 Lymphocytes # (Manual) 2.9 K/mm3 (1.2-5.4) 11/03/16 08:25 Abs React Lymphs (Man) 0.0 K/mm3 11/03/16 08:25 Monocytes # (Manual) 1.6 K/mm3 (0.0-0.8) H 11/03/16 08:25 Eosinophils # (Manual) 0.0 K/mm3 (0.0-0.4) 11/03/16 08:25 Basophils # (Manual) 0.0 K/mm3 (0.0-0.1) 11/03/16 08:25 Metamyelocytes # 0.0 K/mm3 11/03/16 08:25 Myelocytes # 0.0 K/mm3 11/03/16 08:25 Promyelocytes # 0.0 K/mm3 11/03/16 08:25 Blast Cells # 0.0 K/mm3 11/03/16 08:25 WBC Morphology Not Reportable 11/03/16 08:25 Hypersegmented Neuts Not Reportable 11/03/16 08:25 Hyposegmented Neuts Not Reportable 11/03/16 08:25 Hypogranular Neuts Not Reportable 11/03/16 08:25 Smudge Cells Not Reportable 11/03/16 08:25 Toxic Granulation Not Reportable 11/03/16 08:25 Toxic Vacuolation Not Reportable 11/03/16 08:25 Dohle Bodies Not Reportable 11/03/16 08:25 Pelger-Huet Anomaly Not Reportable 11/03/16 08:25 Mary Rods Not Reportable 11/03/16 08:25 Platelet Estimate Not Reportable 11/03/16 08:25 Clumped Platelets Not Reportable 11/03/16 08:25 Plt Clumps, EDTA Not Reportable 11/03/16 08:25 Large Platelets Not Reportable 11/03/16 08:25 Giant Platelets Not Reportable 11/03/16 08:25 Platelet Satelliting Not Reportable 11/03/16 08:25 Plt Morphology Comment Not Reportable 11/03/16 08:25 RBC Morphology Not Reportable 11/03/16 08:25 Dimorphic RBCs Not Reportable 11/03/16 08:25 Polychromasia Not Reportable 11/03/16 08:25 Hypochromasia Not Reportable 11/03/16 08:25 Poikilocytosis Not Reportable 11/03/16 08:25 Anisocytosis 2+ 11/03/16 08:25 Microcytosis Not Reportable 11/03/16 08:25 Macrocytosis 2+ 11/03/16 08:25 Spherocytes Not Reportable 11/03/16 08:25 Pappenheimer Bodies Not Reportable 11/03/16 08:25 Sickle Cells Not Reportable 11/03/16 08:25 Target Cells Not Reportable 11/03/16 08:25 Tear Drop Cells Not Reportable 11/03/16 08:25 Ovalocytes Not Reportable 11/03/16 08:25 Helmet Cells Not Reportable 11/03/16 08:25 Landers-Hewitt Bodies Not Reportable 11/03/16 08:25 Cerrillos Rings Not Reportable 11/03/16 08:25 [place] Cells Not Reportable 11/03/16 08:25 Bite Cells Not Reportable 11/03/16 08:25 Crenated Cell Not Reportable 11/03/16 08:25 Elliptocytes Not Reportable 11/03/16 08:25 Acanthocytes (Spur) Not Reportable 11/03/16 08:25 Rouleaux Not Reportable 11/03/16 08:25 Hemoglobin C Crystals Not Reportable 11/03/16 08:25 Schistocytes Not Reportable 11/03/16 08:25 Malaria parasites Not Reportable 11/03/16 08:25 Michael Bodies Not Reportable 11/03/16 08:25 Hem Pathologist Commnt No 11/03/16 08:25 PT 17.3 Sec. (12.2-14.9) H 11/03/16 08:25 INR 1.42 (0.87-1.13) H 11/03/16 08:25 APTT 28.8 Sec. (24.2-36.6) 11/03/16 08:25 D-Dimer 2416.88 ng/mlDDU (0-234) H 11/03/16 08:25 POC ABG pH 7.352 (7.35-7.45) 11/05/16 12:18 POC ABG pCO2 26.8 (35-45) L 11/05/16 12:18 POC ABG pO2 169 (80-105) H 11/05/16 12:18 POC ABG HCO3 14.9 11/05/16 12:18 POC ABG Total CO2 16 11/05/16 12:18 POC ABG O2 Sat 99 11/05/16 12:18 POC ABG Base Excess -11 11/05/16 12:18 VBG pH 6.811 (7.320-7.420) L* 11/03/16 08:25 FiO2 30 % 11/05/16 12:18 Sodium 161 mmol/L (137-145) H* 11/05/16 07:40 Potassium 2.8 mmol/L (3.6-5.0) L* 11/05/16 07:40 Chloride 123.2 mmol/L (98-107) H 11/05/16 07:40 Carbon Dioxide 18 mmol/L (22-30) L 11/05/16 07:40 Anion Gap 24 mmol/L 11/05/16 07:40 BUN 31 mg/dL (7-17) H 11/05/16 07:40 Creatinine 2.9 mg/dL (0.7-1.2) H 11/05/16 07:40 Estimated GFR 21 ml/min 11/05/16 07:40 BUN/Creatinine Ratio 10.68 % 11/05/16 07:40 Glucose 87 mg/dL (65-100) 11/05/16 07:40 POC Glucose 126 (70-105) H 11/05/16 17:53 Hemoglobin A1c 13.5 % (4-6) H 11/03/16 11:44 Lactic Acid 1.80 mmol/L (0.7-2.0) 11/04/16 14:40 Calcium 7.0 mg/dL (8.4-10.2) L 11/05/16 07:40 Phosphorus 2.40 mg/dL (2.5-4.5) L D 11/04/16 08:09 Magnesium 2.00 mg/dL (1.7-2.3) 11/04/16 08:09 Total Creatine Kinase 168 units/L (30-135) H 11/03/16 14:22 CK-MB (CK-2) 3.4 ng/mL (0.0-4.0) 11/03/16 14:22 CK-MB (CK-2) Rel Index 2.0 (0-4) 11/03/16 14:22 Troponin T 0.039 ng/mL (0.00-0.029) H 11/03/16 14:22 C-Reactive Protein 3.60 mg/dL (0.00-1.30) H 11/04/16 14:40 Triglycerides 613 mg/dL (2-149) H 11/03/16 10:08 Cholesterol 193 mg/dL (50-199) 11/03/16 10:08 LDL Cholesterol Direct TNR 11/03/16 10:08 HDL Cholesterol 25 mg/dL (40-59) L 11/03/16 10:08 Cholesterol/HDL Ratio 7.72 % 11/03/16 10:08 Urine Color Yellow (Yellow) 11/03/16 12:23 Urine Turbidity Slightly-cloudy (Clear) 11/03/16 12:23 Urine pH 5.0 (5.0-7.0) 11/03/16 12:23 Ur Specific [place] 1.020 (1.003-1.030) 11/03/16 12:23 Urine Protein 30 mg/dl mg/dL (Negative) 11/03/16 12:23 Urine Glucose (UA) >=500 mg/dL (Negative) 11/03/16 12:23 Urine Ketones 20 mg/dL (Negative) 11/03/16 12:23 Urine Blood Neg (Negative) 11/03/16 12:23 Urine Nitrite Neg (Negative) 11/03/16 12:23 Urine Bilirubin Neg (Negative) 11/03/16 12:23 Urine Urobilinogen < 2.0 mg/dL (<2.0) 11/03/16 12:23 Ur Leukocyte Esterase Neg (Negative) 11/03/16 12:23 Urine WBC (Auto) 2.0 /HPF (0.0-6.0) 11/03/16 12:23 Urine RBC (Auto) 1.0 /HPF (0.0-6.0) 11/03/16 12:23 U Epithel Cells (Auto) < 1.0 /HPF (0-13.0) 11/03/16 12:23 Urine Mucus Few /HPF 11/03/16 12:23 Urine Osmolality 404 Mosm/kg 11/04/16 11:54 Urine Creatinine 104.4 mg/dL (0.1-20.0) H 11/04/16 11:54 Urine Sodium 77 mEq/L 11/04/16 11:54 Fraction Sodium Excret 0.9 11/04/16 11:54 Urine Opiates Screen Presumptive negative 11/03/16 12:23 Urine Methadone Screen Presumptive negative 11/03/16 12:23 Ur Barbiturates Screen Presumptive negative 11/03/16 12:23 Ur Phencyclidine Scrn Presumptive negative 11/03/16 12:23 Ur Amphetamines Screen Presumptive negative 11/03/16 12:23 U Benzodiazepines Scrn Presumptive negative 11/03/16 12:23 Urine Cocaine Screen Presumptive negative 11/03/16 12:23 U Marijuana (THC) Screen Presumptive positive 11/03/16 12:23 Drugs of Abuse Note Disclamer 11/03/16 12:23 Blood Type O POSITIVE 11/03/16 08:45 Antibody Screen TNR 11/03/16 08:45 ISAIAH Antibody Screen Negative 11/03/16 08:45
[2016-11-06] MEDS: LOPRESSOR IV SCH ×4 (01:29→20:32)
[2016-11-06 05:30] LABS: Basophils % (Auto) 0.9 % (0.0-1.8); Eosinophils % (Auto) 0.7 % (0.0-4.3); Hematocrit 24.9 % (30.3-42.9); Hemoglobin 8.1 gm/dl (10.1-14.3); Mean Corpuscular HGB Conc 33 % (30-34); Mean Corpuscular Hemoglobin 28 pg (28-32); Mean Corpuscular Volume 86 fl (79-97); Platelet Count 200 K/mm3 (140-440)
[2016-11-06 05:32] LABS: Red Cell Distribution Width 20.7 % (13.2-15.2)
[2016-11-06 05:52] LABS: BUN/Creatinine Ratio 11.2
[2016-11-06] MEDS: fentaNYL DRIP Premix 2,000 MCG/100 ML BAG IV SCH (09:20)
--- NOTE | 2016-11-06 10:52 | Consultation ---
History of Present Illness Consult date: 11/06/16 Requesting physician: REJI WALTON Reason for Consult: ICH Chief complaint: pt found down poorly responsive History of present illness: 46 YO F intubated @ time of eval but able to answer questions by nodding. She has Hx DM, HTN, Malnutrition, GERD, Medication Noncompliance presents to ED for evaluation 11/03. Pt found down and unresponsive by a friend who subsequently notified EMS. EMS transported pt to [facility] for evaluation and treatment. Pt found to be in DKA with serum glucose above 1000, as well as acute respiratory failure , and Septic Shock. Pt intubated in ED and placed on vent support as well as pressor support. Pt unable to provide extended history d/t intubation but denies fall/head stroke although she was found down. She denies RODRIGUEZ/N/V/fever or neck stiffness. Past History Past Medical History: diabetes, GERD, hypertension Past Surgical History: No surgical history, Other (reviewed) Social history: single. denies: smoking, alcohol abuse, prescription drug abuse Family history: diabetes, hypertension Medications and Allergies Allergies Allergy/AdvReac Type Severity Reaction Status Date / Time No Known Allergies Allergy Verified 03/26/14 03:17 Home Medications Medication Instructions Recorded Confirmed Last Taken Type Calcium Carbonate [Oscal] 1,250 mg PO BID #60 tablet 10/11/16 Unknown Rx Insulin NPH/Regular [NovoLIN 70/30] 10 unit SUB-Q BIDDIAB 30 Days 10/11/1609/30 Unknown Rx Metoprolol [Lopressor TAB] 25 mg PO BID #60 tablet 10/11/16 Unknown Rx Pantoprazole [Protonix TAB] 40 mg PO QDAY #30 tablet 10/11/16 Unknown Rx Active Meds: Active Medications Al Hydrox/Mg Hydrox/Simethicone (Alum-Mag Hydrox-Simeth [id number]/5ml) 30 ml PO Q4H PRN PRN Reason: Indigestion Albuterol (Proventil) 2.5 mg IH Q4HRT PRN PRN Reason: Shortness Of Breath Bisacodyl (Dulcolax) 10 mg AL QDAY PRN PRN Reason: constipation unrelieved by MOM Dextrose (D50w (25gm)) 0 ml IV ONCE PRN PRN Reason: Hypoglycemia Famotidine (Pepcid) 20 mg IV DAILY ULI Last Admin: 11/05/16 10:30 Dose: 20 mg Norepinephrine (Levophed Drip 4 Mg/Ns 250 Ml) 4 mg in 250 mls @ 7.5 mls/hr IV TITR ULI; 2 MCG/MIN PRN Reason: Protocol Last Titration: 11/03/16 15:28 Dose: 0 mcg/min, 0 mls/hr Piperacillin Sod/Tazobactam Sod (Zosyn/Ns 2.25 Gm/50ml) 2.25 gm in 50 mls @ 100 mls/hr IV Q8H ULI PRN Reason: Protocol Stop: 11/06/16 23:59 Last Admin: 11/05/16 21:30 Dose: 100 mls/hr Levofloxacin/Dextrose (Levaquin 500mg/100ml) 500 mg in 100 mls @ 66.667 mls/hr IV Q48H ULI PRN Reason: Protocol Stop: 11/09/16 12:59 Last Admin: 11/05/16 13:08 Dose: 66.667 mls/hr Fentanyl Citrate (Fentanyl Drip Premix) 2,000 mcg in 100 mls @ 2.495 mls/hr IV TITR ULI; 1 MCG/KG/HR PRN Reason: Protocol Last Titration: 11/05/16 16:08 Dose: 0 mcg/kg/hr, 0 mls/hr Dextrose (D5w) 1,000 mls @ 125 mls/hr IV DIRECT ULI Stop: 11/07/16 19:59 Last Admin: 11/05/16 23:04 Dose: 125 mls/hr Insulin Aspart (Novolog) 0 units SUB-Q Q6HR ULI PRN Reason: Protocol Last Admin: 11/06/16 00:00 Dose: 8 units Insulin Detemir (Levemir) 15 units SUB-Q DAILY [facility] Magnesium Hydroxide (Milk Of Magnesia) 30 ml PO Q4H PRN PRN Reason: Constipation Metoprolol Tartrate (Lopressor) 5 mg IV Q6H [facility] Last Admin: 11/06/16 01:29 Dose: 5 mg Midazolam HCl (Versed) 10 mg IV ONCE PRN PRN Reason: Agitation Last Admin: 11/05/16 14:25 Dose: 10 mg Review of Systems ROS unobtainable: due to endotracheal tube Neurological: no head injury, no paralysis, no weakness, no parathesias, no numbness, no tingling, no seizures, no headaches, no convulsions, no loss of vision Physical Examination - Vital Signs Vital Signs: Vital Signs Resp BP 19 67/34 11/03/16 08:00 11/03/16 08:00 - Constitutional General appearance: acutely ill, older than stated age - EENT EENT: Present: ATNC, PERRL, mucous membranes moist, hearing intact, vision intact - Respiratory Respiratory: Present: chest non-tender, normal breath sounds, no respiratory distress - Cardiovascular Cardiovascular: Present: regular rate Extremities: Present: no peripheral edema bilatateraly, no clubbing, cyanosis, no inflammation, no ischemia or petechiae - Gastrointestinal Gastrointestinal: Present: normoactive bowel sounds, soft, non-distended - Integumentary Integumentary: Present: normal - Neurologic Cranial nerve examination: PERRL, EOMI, VFF, V1/V2/V3 grossly intact, face symmetric, tongue midline, intact, intact shoulder shrug, Intact Vestibulo- ocular r, intact corneal reflex, normal palatal elevation Speech examination: other (intubtation limits but nods to name and hospital and to Hx questioning) Sensorimotor examination: intact Detailed motor examination: grossly full strength in Motor examination - right side: 5/5: biceps, triceps, wrist flexion, wrist extension, air grinder, hip flexors, knee extensors, dorsiflexion, toe extension (EHL) , plantarflexion Motor examination - left side: 5/5: biceps, triceps, wrist flexion, wrist extension, air grinder, hip flexors, knee extensors, dorsiflexion, toe extension (EHL) , plantarflexion Detailed sensory examination: intact, light touch, temperature Reflex and gait examination: intact Reflexes: 0: ankle, 1+: knee, 2+: bicep, tricep - Musculoskeletal Musculoskeletal: Present: no fluid collection, no pain, normal range of motion - Psychiatric Psychiatric: Present: mood/affect appropriate, cooperative Results - Laboratory Findings CBC and BMP: 11/06/16 05:10 11/06/16 05:10 Abnormal Lab Findings: Abnormal Labs 11/03/16 11/03/16 11/03/16 11:45 14:22 14:22 WBC RBC Hgb Hct RDW Lymph % (Auto) Seg Neutrophils % Seg Neutrophils # POC ABG pH POC ABG pCO2 POC ABG pO2 Sodium 152 H Potassium Chloride Carbon Dioxide 6 L* 11 L BUN 47 H 43 H Creatinine 3.0 H 2.8 H Glucose 1292 H* 977 H* POC Glucose Lactic Acid Calcium 7.8 L 7.6 L Phosphorus Total Creatine Kinase 168 H Troponin T 0.039 H C-Reactive Protein Urine Creatinine 11/03/16 11/03/16 11/03/16 14:23 15:13 16:15 WBC RBC Hgb Hct RDW Lymph % (Auto) Seg Neutrophils % Seg Neutrophils # POC ABG pH POC ABG pCO2 POC ABG pO2 Sodium 151 H Potassium 3.5 L Chloride Carbon Dioxide 12 L BUN 40 H Creatinine 2.6 H Glucose 656 H* POC Glucose > 500 H Lactic Acid 7.50 H* Calcium 7.2 L Phosphorus Total Creatine Kinase Troponin T C-Reactive Protein Urine Creatinine 11/03/16 11/03/16 11/03/16 18:06 18:36 19:06 WBC RBC Hgb Hct RDW Lymph % (Auto) Seg Neutrophils % Seg Neutrophils # POC ABG pH POC ABG pCO2 POC ABG pO2 Sodium Potassium Chloride Carbon Dioxide BUN Creatinine Glucose POC Glucose 418 H 330 H Lactic Acid Calcium Phosphorus Total Creatine Kinase Troponin T C-Reactive Protein Urine Creatinine 85.4 H 11/03/16 11/03/16 11/03/16 20:51 20:56 22:01 WBC RBC Hgb Hct RDW Lymph % (Auto) Seg Neutrophils % Seg Neutrophils # POC ABG pH POC ABG pCO2 POC ABG pO2 Sodium 157 H Potassium 3.4 L Chloride 116.1 H Carbon Dioxide 19 L D BUN 39 H Creatinine 2.6 H Glucose 165 H POC Glucose 178 H 110 H Lactic Acid Calcium 7.7 L Phosphorus Total Creatine Kinase Troponin T C-Reactive Protein Urine Creatinine 11/03/16 11/04/16 11/04/16 Unknown 00:17 00:30 WBC RBC Hgb Hct RDW Lymph % (Auto) Seg Neutrophils % Seg Neutrophils # POC ABG pH POC ABG pCO2 POC ABG pO2 Sodium 158 H Potassium 3.2 L Chloride 115.7 H Carbon Dioxide 19 L BUN 41 H Creatinine 2.9 H Glucose 118 H POC Glucose 186 H Lactic Acid 7.10 H* Calcium 7.5 L Phosphorus Total Creatine Kinase Troponin T C-Reactive Protein Urine Creatinine 11/04/16 11/04/16 11/04/16 01:15 02:04 03:18 WBC RBC Hgb Hct RDW Lymph % (Auto) Seg Neutrophils % Seg Neutrophils # POC ABG pH POC ABG pCO2 POC ABG pO2 Sodium Potassium Chloride Carbon Dioxide BUN Creatinine Glucose POC Glucose 171 H 113 H 115 H Lactic Acid Calcium Phosphorus Total Creatine Kinase Troponin T C-Reactive Protein Urine Creatinine 11/04/16 11/04/16 11/04/16 03:57 04:40 05:01 WBC RBC Hgb Hct RDW Lymph % (Auto) Seg Neutrophils % Seg Neutrophils # POC ABG pH POC ABG pCO2 POC ABG pO2 Sodium 161 H* Potassium 3.2 L Chloride 118.5 H Carbon Dioxide 19 L BUN 42 H Creatinine 3.0 H Glucose 102 H POC Glucose 112 H 115 H Lactic Acid Calcium 7.5 L Phosphorus Total Creatine Kinase Troponin T C-Reactive Protein Urine Creatinine 11/04/16 11/04/16 11/04/16 05:30 08:07 08:09 WBC RBC Hgb Hct RDW Lymph % (Auto) Seg Neutrophils % Seg Neutrophils # POC ABG pH 7.456 H POC ABG pCO2 27.9 L POC ABG pO2 144 H Sodium 163 H* Potassium Chloride Carbon Dioxide 19 L BUN 41 H Creatinine 3.1 H Glucose 113 H POC Glucose 124 H Lactic Acid Calcium 7.6 L Phosphorus Total Creatine Kinase Troponin T C-Reactive Protein Urine Creatinine 11/04/16 11/04/16 11/04/16 08:09 09:59 11:54 WBC RBC Hgb Hct RDW Lymph % (Auto) Seg Neutrophils % Seg Neutrophils # POC ABG pH POC ABG pCO2 POC ABG pO2 Sodium Potassium Chloride Carbon Dioxide BUN Creatinine Glucose POC Glucose 113 H Lactic Acid Calcium Phosphorus 2.40 L D Total Creatine Kinase Troponin T C-Reactive Protein Urine Creatinine 104.4 H 11/04/16 11/04/16 11/04/16 11:56 14:40 14:40 WBC RBC Hgb Hct RDW Lymph % (Auto) Seg Neutrophils % Seg Neutrophils # POC ABG pH POC ABG pCO2 POC ABG pO2 Sodium 164 H* 163 H* Potassium 3.0 L Chloride 123.0 H Carbon Dioxide BUN 38 H Creatinine 3.2 H 3.2 H Glucose 176 H POC Glucose 128 H Lactic Acid Calcium 7.3 L Phosphorus Total Creatine Kinase Troponin T C-Reactive Protein 3.60 H Urine Creatinine 11/04/16 11/04/1611/04/17 14:47 15:51 18:02 WBC RBC Hgb Hct RDW Lymph % (Auto) Seg Neutrophils % Seg Neutrophils # POC ABG pH POC ABG pCO2 POC ABG pO2 Sodium Potassium Chloride Carbon Dioxide BUN Creatinine Glucose POC Glucose 198 H 139 H 177 H Lactic Acid Calcium Phosphorus Total Creatine Kinase Troponin T C-Reactive Protein Urine Creatinine 11/04/16 11/04/16 11/04/16 19:59 20:03 20:54 WBC RBC Hgb Hct RDW Lymph % (Auto) Seg Neutrophils % Seg Neutrophils # POC ABG pH POC ABG pCO2 33.5 L POC ABG pO2 157 H Sodium Potassium Chloride Carbon Dioxide BUN Creatinine Glucose POC Glucose 191 H 118 H Lactic Acid Calcium Phosphorus Total Creatine Kinase Troponin T C-Reactive Protein Urine Creatinine 11/04/16 11/04/16 11/05/16 23:10 23:56 00:59 WBC RBC Hgb Hct RDW Lymph % (Auto) Seg Neutrophils % Seg Neutrophils # POC ABG pH POC ABG pCO2 POC ABG pO2 Sodium Potassium Chloride Carbon Dioxide BUN Creatinine Glucose POC Glucose 185 H 280 H 167 H Lactic Acid Calcium Phosphorus Total Creatine Kinase Troponin T C-Reactive Protein Urine Creatinine 11/05/16 11/05/16 11/05/16 03:10 04:06 04:59 WBC RBC Hgb Hct RDW Lymph % (Auto) Seg Neutrophils % Seg Neutrophils # POC ABG pH POC ABG pCO2 POC ABG pO2 Sodium Potassium Chloride Carbon Dioxide BUN Creatinine Glucose POC Glucose 173 H 269 H 205 H Lactic Acid Calcium Phosphorus Total Creatine Kinase Troponin T C-Reactive Protein Urine Creatinine 11/05/16 11/05/16 11/05/16 05:10 06:05 07:40 WBC 12.8 H RBC 2.67 L Hgb 7.4 L Hct 23.8 L D RDW 20.8 H Lymph % (Auto) 13.0 L Seg Neutrophils % 81.3 H Seg Neutrophils # 10.4 H POC ABG pH POC ABG pCO2 POC ABG pO2 Sodium 161 H* Potassium 2.8 L* Chloride 123.2 H Carbon Dioxide 18 L BUN 31 H Creatinine 2.9 H Glucose POC Glucose 108 H Lactic Acid Calcium 7.0 L Phosphorus Total Creatine Kinase Troponin T C-Reactive Protein Urine Creatinine 11/05/16 11/05/16 11/05/16 10:07 10:09 11:11 WBC RBC Hgb Hct RDW Lymph % (Auto) Seg Neutrophils % Seg Neutrophils # POC ABG pH POC ABG pCO2 POC ABG pO2 Sodium Potassium Chloride Carbon Dioxide BUN Creatinine Glucose POC Glucose 335 H 317 H 284 H Lactic Acid Calcium Phosphorus Total Creatine Kinase Troponin T C-Reactive Protein Urine Creatinine 11/05/16 11/05/16 11/05/16 12:18 12:36 17:53 WBC RBC Hgb Hct RDW Lymph % (Auto) Seg Neutrophils % Seg Neutrophils # POC ABG pH POC ABG pCO2 26.8 L POC ABG pO2 169 H Sodium Potassium Chloride Carbon Dioxide BUN Creatinine Glucose POC Glucose 152 H 126 H Lactic Acid Calcium Phosphorus Total Creatine Kinase Troponin T C-Reactive Protein Urine Creatinine 11/06/16 11/06/16 11/06/16 01:05 05:10 05:10 WBC 14.0 H RBC 2.90 L Hgb 8.1 L Hct 24.9 L RDW 20.7 H Lymph % (Auto) Seg Neutrophils % 78.6 H Seg Neutrophils # 11.0 H POC ABG pH POC ABG pCO2 POC ABG pO2 Sodium Potassium Chloride 110.0 H Carbon Dioxide 16 L BUN 28 H Creatinine 2.5 H Glucose 189 H POC Glucose 363 H Lactic Acid Calcium 7.0 L Phosphorus Total Creatine Kinase Troponin T C-Reactive Protein Urine Creatinine Assessment and Plan 46 YO F Hx DM, HTN, Malnutrition, GERD, Medication Noncompliance presents to ED for evaluation 11/03 after being found down. Upon arrival she was found to be in DKA, acute respiratory failure, and Septic Shock s/p intubation. She denies RODRIGUEZ/N /V/fever or neck stiffness by nodding no. CTH 11/04 reveals R frontoparietal small areas of SAH confirmed on MRI Brain. There is no midline shift/mass effect /cerebral edema. Neuro exam alert, oriented, follows all commands and symmetric intact motor sensory exam w/o deficits and no meningeal signs/sx. Pt denies fall but considering clinical Hx as she was found down I suspect traumatic SAH. Recs: 1. Neuro checks 2. Check MRA Head to r/o vascular process 3. Avoid all blood thinners 4. BP control: goal < 140/90 using prn Labetalol/Hydralyzine/Nicardipine. Cont home BP med. 5. F/E/N: isotonic fluids @ 80 cc/hr, prn replete, bedside speech/swallow eval prior to PO intake 6. DVT Prophylaxis: SCDs/TEDs 7. Dispo: PT/OT/CM evaluations
[2016-11-06] MEDS: PEPCID IV SCH (11:13)
--- NOTE | 2016-11-06 11:26 | Progress Note ---
Assessment and Plan - Patient Problems (1) Acute respiratory failure with hypoxemia Current Visit: Yes Status: Acute Plan to address problem: - continue bronchodilators and pulmonary toilet - continue aspiration precautions / VAP bundles - wean oxygen to keep sats > 94% - Hold on extubation till after MRA is done - improved - am CXR (2) Altered mental status Current Visit: Yes Status: Acute Qualifiers: Altered mental status type: unspecified Coma depth: C Coma timing: C Qualified Code(s): R41.82 - Altered mental status, unspecified Plan to address problem: - CT brain suggest SAH - neurology consult placed - will get MRI & MRA of brain without contrast re: azotemia (3) D-dimer, elevated Current Visit: Yes Status: Acute Plan to address problem: - VTE w/up negative - on SCD's - holding heparin till SAH ruled out (4) DKA (diabetic ketoacidoses) Current Visit: Yes Status: Acute Qualifiers: Diabetes mellitus type: type 1 Diabetes mellitus complication detail: with coma Diabetes mellitus [facility] insulin use: D Qualified Code(s): E10.11 - Type 1 diabetes mellitus with ketoacidosis with coma Plan to address problem: - transitioned to long acting insulin - also SSI - change to 1/2 NS (from D51/2NS) as sugars running high now (5) Seizures Current Visit: Yes Status: Acute Plan to address problem: - no repeat seizures - prn Ativan - neurology evaluation ongoing (6) Acute hypernatremia Current Visit: No Status: Acute Plan to address problem: - resolved - continue free water flushes but reduce frequency (7) Acute renal failure Current Visit: No Status: Acute Qualifiers: Acute renal failure type: A Plan to address problem: - non oliguric - continue volume resuscitation - will give D5W @ 125mls/hr X 3 liters then back to 1/2 NS re: azotemia - replaced potassium - nephrology following - improving (8) Discharge planning issues Current Visit: No Status: Acute Plan to address problem: - will complete neurology evaluation before extubation (i.e. get MRA) ; there was the question of a fall and witnessed seizures at home and in ER so need to r /o primary neurological event also ...she remains critically ill on life sustaining interventions including MVS and at risk for further deterioration including ...30' CCT Subjective Date of service: 11/06/16 Principal diagnosis: Acute Hypoxemic Respiratory Failure; DKA Interval history: Seen and examined at bedside; 24 hour events reviewed; nursing and respiratory care staff consulted; no adverse overnight events reported to me; more alert and appropriate today; tolerated PSV earlier but got agitated; denies acute chest pains; denies headache; awaiting MRA of head Objective Vital Signs - 12hr 11/05/16 11/05/16 11/06/16 23:30 23:45 00:00 Temperature 99.0 F Pulse Rate 121 H 116 H 120 H Respiratory 21 22 17 Rate Blood Pressure 142/96 141/102 147/102 O2 Sat by Pulse 100 100 100 Oximetry 11/06/16 11/06/16 11/06/16 00:15 00:30 00:45 Temperature Pulse Rate 117 H 120 H 120 H Respiratory 21 20 21 Rate Blood Pressure 135/95 151/105 142/99 O2 Sat by Pulse 100 100 100 Oximetry 11/06/16 11/06/16 11/06/16 01:00 01:15 01:29 Temperature Pulse Rate 121 H 123 H 120 H Respiratory 21 24 Rate Blood Pressure 147/97 141/97 142/99 O2 Sat by Pulse 100 100 Oximetry 11/06/16 11/06/16 11/06/16 01:30 01:45 02:00 Temperature Pulse Rate 109 H 111 H 114 H Respiratory 17 19 16 Rate Blood Pressure 138/95 136/99 132/96 O2 Sat by Pulse 100 100 100 Oximetry 11/06/16 11/06/16 11/06/16 02:15 02:30 02:45 Temperature Pulse Rate 111 H 115 H 121 H Respiratory 20 20 19 Rate Blood Pressure 128/89 134/93 132/95 O2 Sat by Pulse 100 100 100 Oximetry 11/06/16 11/06/16 11/06/16 03:00 03:15 03:20 Temperature Pulse Rate 127 H 118 H 116 H Respiratory 37 H 25 H Rate Blood Pressure 142/97 152/104 152/104 O2 Sat by Pulse 98 100 100 Oximetry 11/06/16 11/06/16 11/06/16 03:30 03:45 04:00 Temperature 98.9 F Pulse Rate 119 H 117 H 119 H Respiratory 22 23 18 Rate Blood Pressure 153/106 145/102 145/93 O2 Sat by Pulse 100 100 100 Oximetry 11/06/16 11/06/1611/06/17 04:15 04:30 04:45 Temperature Pulse Rate 122 H 126 H 122 H Respiratory 21 18 27 H Rate Blood Pressure 146/103 147/99 154/103 O2 Sat by Pulse 100 100 98 Oximetry 11/06/16 11/06/16 11/06/16 05:00 05:15 05:30 Temperature Pulse Rate 122 H 125 H 123 H Respiratory 25 H 21 21 Rate Blood Pressure 145/105 150/101 154/101 O2 Sat by Pulse 100 98 100 Oximetry 11/06/16 11/06/16 11/06/16 05:45 06:00 06:10 Temperature Pulse Rate 119 H 123 H 116 H Respiratory 14 24 24 Rate Blood Pressure 153/105 146/99 152/104 O2 Sat by Pulse 100 100 100 Oximetry 11/06/16 11/06/16 11/06/16 06:15 06:30 06:45 Temperature Pulse Rate 121 H 119 H 129 H Respiratory 24 27 H 30 H Rate Blood Pressure 151/109 147/105 155/111 O2 Sat by Pulse 100 100 99 Oximetry 11/06/16 11/06/16 11/06/16 07:00 07:16 07:30 Temperature Pulse Rate 129 H 147 H 159 H Respiratory 25 H 38 H 39 H Rate Blood Pressure 144/82 158/113 146/98 O2 Sat by Pulse 100 95 81 L Oximetry 11/06/16 11/06/16 11/06/16 07:40 07:43 07:46 Temperature Pulse Rate 142 H 137 H Respiratory 39 H 38 H Rate Blood Pressure 173/134 157/114 O2 Sat by Pulse 73 L 95 85 Oximetry 11/06/16 11/06/16 11/06/16 08:00 08:15 08:30 Temperature 98.3 F Pulse Rate 137 H 129 H 133 H Respiratory 41 H 27 H 24 Rate Blood Pressure 154/103 141/100 150/99 O2 Sat by Pulse 90 96 97 Oximetry 11/06/16 11/06/16 11/06/16 08:45 09:00 09:15 Temperature Pulse Rate 127 H 136 H 133 H Respiratory 27 H 37 H 32 H Rate Blood Pressure 146/98 140/101 138/95 O2 Sat by Pulse 96 97 98 Oximetry 11/06/16 11/06/16 11/06/16 09:20 09:30 10:40 Temperature Pulse Rate 139 H 140 H 119 H Respiratory 30 H 22 Rate Blood Pressure 154/91 154/91 118/82 O2 Sat by Pulse 98 98 98 Oximetry Constitutional: no acute distress, alert Eyes: non-icteric ENT: oropharynx moist Neck: supple, no lymphadenopathy Effort: mildly labored Ascultation: Bilateral: diminished breath sounds, rhonchi (scant) Cardiovascular: regular rate and rhythm Gastrointestinal: normoactive bowel sounds, soft, non-tender, non-distended Integumentary: normal Extremities: no cyanosis, no edema, pulses normal, no ischemia or petechiae Neurologic: normal mental status, non-focal exam (grossly), pupils equal and round, motor strength normal and Psychiatric: mood appropriate, affect normal CBC and BMP: 11/06/16 05:10 11/06/16 05:10 ABG, PT/INR, D-dimer: ABG POC ABG pH 7.352 (7.35-7.45) 11/05/16 12:18 POC ABG pCO2 26.8 (35-45) L 11/05/16 12:18 POC ABG pO2 169 (80-105) H 11/05/16 12:18 POC ABG HCO3 14.9 11/05/16 12:18 POC ABG Total CO2 16 11/05/16 12:18 POC ABG O2 Sat 99 11/05/16 12:18 PT/INR, D-dimer PT 17.3 Sec. (12.2-14.9) H 11/03/16 08:25 INR 1.42 (0.87-1.13) H 11/03/16 08:25 D-Dimer 2416.88 ng/mlDDU (0-234) H 11/03/16 08:25 Abnormal lab findings: Abnormal Labs 11/03/16 11/03/16 11/03/16 11:45 14:22 14:22 WBC RBC Hgb Hct RDW Lymph % (Auto) Seg Neutrophils % Seg Neutrophils # POC ABG pH POC ABG pCO2 POC ABG pO2 Sodium 152 H Potassium Chloride Carbon Dioxide 6 L* 11 L BUN 47 H 43 H Creatinine 3.0 H 2.8 H Glucose 1292 H* 977 H* POC Glucose Lactic Acid Calcium 7.8 L 7.6 L Phosphorus Total Creatine Kinase 168 H Troponin T 0.039 H C-Reactive Protein Urine Creatinine 11/03/16 11/03/16 11/03/16 14:23 15:13 16:15 WBC RBC Hgb Hct RDW Lymph % (Auto) Seg Neutrophils % Seg Neutrophils # POC ABG pH POC ABG pCO2 POC ABG pO2 Sodium 151 H Potassium 3.5 L Chloride Carbon Dioxide 12 L BUN 40 H Creatinine 2.6 H Glucose 656 H* POC Glucose > 500 H Lactic Acid 7.50 H* Calcium 7.2 L Phosphorus Total Creatine Kinase Troponin T C-Reactive Protein Urine Creatinine 11/03/16 11/03/16 11/03/16 18:06 18:36 19:06 WBC RBC Hgb Hct RDW Lymph % (Auto) Seg Neutrophils % Seg Neutrophils # POC ABG pH POC ABG pCO2 POC ABG pO2 Sodium Potassium Chloride Carbon Dioxide BUN Creatinine Glucose POC Glucose 418 H 330 H Lactic Acid Calcium Phosphorus Total Creatine Kinase Troponin T C-Reactive Protein Urine Creatinine 85.4 H 11/03/16 11/03/16 11/03/16 20:51 20:56 22:01 WBC RBC Hgb Hct RDW Lymph % (Auto) Seg Neutrophils % Seg Neutrophils # POC ABG pH POC ABG pCO2 POC ABG pO2 Sodium 157 H Potassium 3.4 L Chloride 116.1 H Carbon Dioxide 19 L D BUN 39 H Creatinine 2.6 H Glucose 165 H POC Glucose 178 H 110 H Lactic Acid Calcium 7.7 L Phosphorus Total Creatine Kinase Troponin T C-Reactive Protein Urine Creatinine 11/03/16 11/04/16 11/04/16 Unknown 00:17 00:30 WBC RBC Hgb Hct RDW Lymph % (Auto) Seg Neutrophils % Seg Neutrophils # POC ABG pH POC ABG pCO2 POC ABG pO2 Sodium 158 H Potassium 3.2 L Chloride 115.7 H Carbon Dioxide 19 L BUN 41 H Creatinine 2.9 H Glucose 118 H POC Glucose 186 H Lactic Acid 7.10 H* Calcium 7.5 L Phosphorus Total Creatine Kinase Troponin T C-Reactive Protein Urine Creatinine 11/04/16 11/04/16 11/04/16 01:15 02:04 03:18 WBC RBC Hgb Hct RDW Lymph % (Auto) Seg Neutrophils % Seg Neutrophils # POC ABG pH POC ABG pCO2 POC ABG pO2 Sodium Potassium Chloride Carbon Dioxide BUN Creatinine Glucose POC Glucose 171 H 113 H 115 H Lactic Acid Calcium Phosphorus Total Creatine Kinase Troponin T C-Reactive Protein Urine Creatinine 0511/04/16 11/04/16 03:57 04:40 05:01 WBC RBC Hgb Hct RDW Lymph % (Auto) Seg Neutrophils % Seg Neutrophils # POC ABG pH POC ABG pCO2 POC ABG pO2 Sodium 161 H* Potassium 3.2 L Chloride 118.5 H Carbon Dioxide 19 L BUN 42 H Creatinine 3.0 H Glucose 102 H POC Glucose 112 H 115 H Lactic Acid Calcium 7.5 L Phosphorus Total Creatine Kinase Troponin T C-Reactive Protein Urine Creatinine 11/04/16 11/04/16 11/04/16 05:30 08:07 08:09 WBC RBC Hgb Hct RDW Lymph % (Auto) Seg Neutrophils % Seg Neutrophils # POC ABG pH 7.456 H POC ABG pCO2 27.9 L POC ABG pO2 144 H Sodium 163 H* Potassium Chloride Carbon Dioxide 19 L BUN 41 H Creatinine 3.1 H Glucose 113 H POC Glucose 124 H Lactic Acid Calcium 7.6 L Phosphorus Total Creatine Kinase Troponin T C-Reactive Protein Urine Creatinine 11/04/16 11/04/16 11/04/16 08:09 09:59 11:54 WBC RBC Hgb Hct RDW Lymph % (Auto) Seg Neutrophils % Seg Neutrophils # POC ABG pH POC ABG pCO2 POC ABG pO2 Sodium Potassium Chloride Carbon Dioxide BUN Creatinine Glucose POC Glucose 113 H Lactic Acid Calcium Phosphorus 2.40 L D Total Creatine Kinase Troponin T C-Reactive Protein Urine Creatinine 104.4 H 11/04/16 11/04/16 11/04/16 11:56 14:40 14:40 WBC RBC Hgb Hct RDW Lymph % (Auto) Seg Neutrophils % Seg Neutrophils # POC ABG pH POC ABG pCO2 POC ABG pO2 Sodium 164 H* 163 H* Potassium 3.0 L Chloride 123.0 H Carbon Dioxide BUN 38 H Creatinine 3.2 H 3.2 H Glucose 176 H POC Glucose 128 H Lactic Acid Calcium 7.3 L Phosphorus Total Creatine Kinase Troponin T C-Reactive Protein 3.60 H Urine Creatinine 11/04/16 11/04/16 11/04/16 14:47 15:51 18:02 WBC RBC Hgb Hct RDW Lymph % (Auto) Seg Neutrophils % Seg Neutrophils # POC ABG pH POC ABG pCO2 POC ABG pO2 Sodium Potassium Chloride Carbon Dioxide BUN Creatinine Glucose POC Glucose 198 H 139 H 177 H Lactic Acid Calcium Phosphorus Total Creatine Kinase Troponin T C-Reactive Protein Urine Creatinine 11/04/16 11/04/16 11/04/16 19:59 20:03 20:54 WBC RBC Hgb Hct RDW Lymph % (Auto) Seg Neutrophils % Seg Neutrophils # POC ABG pH POC ABG pCO2 33.5 L POC ABG pO2 157 H Sodium Potassium Chloride Carbon Dioxide BUN Creatinine Glucose POC Glucose 191 H 118 H Lactic Acid Calcium Phosphorus Total Creatine Kinase Troponin T C-Reactive Protein Urine Creatinine 11/04/16 11/04/16 11/05/16 23:10 23:56 00:59 WBC RBC Hgb Hct RDW Lymph % (Auto) Seg Neutrophils % Seg Neutrophils # POC ABG pH POC ABG pCO2 POC ABG pO2 Sodium Potassium Chloride Carbon Dioxide BUN Creatinine Glucose POC Glucose 185 H 280 H 167 H Lactic Acid Calcium Phosphorus Total Creatine Kinase Troponin T C-Reactive Protein Urine Creatinine 11/05/16 11/05/16 11/05/16 03:10 04:06 04:59 WBC RBC Hgb Hct RDW Lymph % (Auto) Seg Neutrophils % Seg Neutrophils # POC ABG pH POC ABG pCO2 POC ABG pO2 Sodium Potassium Chloride Carbon Dioxide BUN Creatinine Glucose POC Glucose 173 H 269 H 205 H Lactic Acid Calcium Phosphorus Total Creatine Kinase Troponin T C-Reactive Protein Urine Creatinine 11/05/16 11/05/16 11/05/16 05:10 06:05 07:40 WBC 12.8 H RBC 2.67 L Hgb 7.4 L Hct 23.8 L D RDW 20.8 H Lymph % (Auto) 13.0 L Seg Neutrophils % 81.3 H Seg Neutrophils # 10.4 H POC ABG pH POC ABG pCO2 POC ABG pO2 Sodium 161 H* Potassium 2.8 L* Chloride 123.2 H Carbon Dioxide 18 L BUN 31 H Creatinine 2.9 H Glucose POC Glucose 108 H Lactic Acid Calcium 7.0 L Phosphorus Total Creatine Kinase Troponin T C-Reactive Protein Urine Creatinine 11/05/16 11/05/16 11/05/16 10:07 10:09 11:11 WBC RBC Hgb Hct RDW Lymph % (Auto) Seg Neutrophils % Seg Neutrophils # POC ABG pH POC ABG pCO2 POC ABG pO2 Sodium Potassium Chloride Carbon Dioxide BUN Creatinine Glucose POC Glucose 335 H 317 H 284 H Lactic Acid Calcium Phosphorus Total Creatine Kinase Troponin T C-Reactive Protein Urine Creatinine 11/05/16 11/05/16 11/05/16 12:18 12:36 17:53 WBC RBC Hgb Hct RDW Lymph % (Auto) Seg Neutrophils % Seg Neutrophils # POC ABG pH POC ABG pCO2 26.8 L POC ABG pO2 169 H Sodium Potassium Chloride Carbon Dioxide BUN Creatinine Glucose POC Glucose 152 H 126 H Lactic Acid Calcium Phosphorus Total Creatine Kinase Troponin T C-Reactive Protein Urine Creatinine 11/06/16 11/06/16 11/06/16 01:05 05:10 05:10 WBC 14.0 H RBC 2.90 L Hgb 8.1 L Hct 24.9 L RDW 20.7 H Lymph % (Auto) Seg Neutrophils % 78.6 H Seg Neutrophils # 11.0 H POC ABG pH POC ABG pCO2 POC ABG pO2 Sodium Potassium Chloride 110.0 H Carbon Dioxide 16 L BUN 28 H Creatinine 2.5 H Glucose 189 H POC Glucose 363 H Lactic Acid Calcium 7.0 L Phosphorus Total Creatine Kinase Troponin T C-Reactive Protein Urine Creatinine Chest x-ray: image reviewed
--- NOTE | 2016-11-06 11:36 | Progress Note ---
Assessment and Plan Assessment: Transient ST segment elevations - resolved; Walter negative for AMI. DKA / hyperkalemia - now with hypokalemia. Acute respiratory failure - intubated Sinus tachycardia Hypotension / septic shock / lactic acidosis CMP - EF 40 - 45%. ARF HTN DM Hypocalcemia Elevated DDimer Noncompliance Marijuana use Hypernatremia Anemia Plan: Cont IV lopressor 5mg Q6H. Hold for HR <60 and SBP <100. No ACEI/ARB at this time in setting of ARF. Cont ASA. For V/Q scan to r/o PE once extubated. Replete K+ PRN per nephrology/primary. Recommend to maintain serum K+ ~4 from cardiac standpoint. Consider ischemic evaluation once medically stabilized or earlier if it becomes emergently indicated. The patient has been seen in conjunction with Dr. Colmenares who agrees with the assessment and plan of care. Subjective Date of service: 11/06/16 Principal diagnosis: Acute Hypoxemic Respiratory Failure; DKA Interval history: Pt intubated, off sedation, responds appropriately to commands. In ST on tele, HR 120s, BPs stable. No family at bedside. Objective Last Vital Signs Temp 98.3 F 11/06/16 08:00 Pulse 119 H 11/06/16 10:40 Resp 22 11/06/16 10:40 BP 118/82 11/06/16 10:40 Pulse Ox 98 11/06/16 10:40 - Physical Examination General: Other (intubated) HEENT: Positive: PERRL, Normocephaly, Mucus Membranes Moist Neck: Positive: neck supple, trachea midline Cardiac: Positive: Regular Rhythm, S1/S2, Tachycardia Lungs: Positive: Decreased Breath Sounds, Ventilated Respirations Neuro: Positive: Other (intubated) Abdomen: Positive: Soft, Active Bowel Sounds Skin: Positive: Clear. Negative: Rash, Wound Musculoskeletal: No Fluid Collection, No Pain, Normal Range of Motion Extremities: Present: upper extr. pulses, lower extr. pulses. Absent: edema - Labs and Meds Coagulation 11/06/16 Range/Units 05:10 APTT 28.6 (24.2-36.6) Sec. CBC 11/06/16 Range/Units 05:10 WBC 14.0 H (4.5-11.0) K/mm3 RBC 2.90 L (3.65-5.03) M/mm3 Hgb 8.1 L (10.1-14.3) gm/dl Hct 24.9 L (30.3-42.9) % Plt Count 200 (140-440) K/mm3 Lymph # 2.2 (1.2-5.4) K/mm3 [place] # 0.6 (0.0-0.8) K/mm3 Eos # 0.1 (0.0-0.4) K/mm3 Baso # 0.1 (0.0-0.1) K/mm3 Comprehensive Metabolic Panel 11/06/16 Range/Units 05:10 Sodium 145 D (137-145) mmol/L Potassium 4.0 D (3.6-5.0) mmol/L Chloride 110.0 H (98-107) mmol/L Carbon Dioxide 16 L (22-30) mmol/L BUN 28 H (7-17) mg/dL Creatinine 2.5 H (0.7-1.2) mg/dL Glucose 189 H (65-100) mg/dL Calcium 7.0 L (8.4-10.2) mg/dL - Imaging and Cardiology EKG: report reviewed, image reviewed Echo: report reviewed - Telemetry EKG Rhythm: Sinus Tachycardia - EKG Sinus rhythms and dysrhythmias: sinus tachycardia
[2016-11-06] MEDS: LEVEMIR SUB-Q SCH (12:28)
[2016-11-06 12:33] LABS: ISTAT Base Excess -7; ISTAT HCO3 17.8; ISTAT PCO2 28.1 (35-45); ISTAT PH 7.411 (7.35-7.45); ISTAT PO2 78 (80-105); ISTAT SO2 96; ISTAT TCO2 19
--- NOTE | 2016-11-06 12:53 | Progress Note ---
Assessment and Plan Impression * Acute renal failure. Most likely prerenal. May have progressed to ATN. Her baseline creatinine seems to be approximately 1-1.2. She is currently nonoliguric * DKA * Sepsis * Respiratory failure * Hypernatremia Recommendations * Patient's creatinine is slowly improving . She is nonoliguric. * Hyperkalemia has been corrected * Continue IV hydration * Monitor electrolytes. * Shall recheck a phosphorus level as well * Continue empiric IV antibiotics * Her renal ultrasound was essentially normal. Fractional excretion of sodium is 0.9% * Hypernatremia has been corrected with intravenous dextrose * Acidosis is improving. Anion gap is now 19 * Monitor fluid status and electrolytes closely Subjective Date of service: 11/06/16 Principal diagnosis: Acute Hypoxemic Respiratory Failure; DKA Interval history: Patient remains on the ventilator. Currently on 25% FiO2. It appears more alert today. Objective - Vital Signs Vital signs: Vital Signs - 12hr 11/06/16 11/06/16 11/06/16 01:00 01:15 01:29 Temperature Pulse Rate 121 H 123 H 120 H Respiratory 21 24 Rate Blood Pressure 147/97 141/97 142/99 O2 Sat by Pulse 100 100 Oximetry 11/06/16 11/06/16 11/06/16 01:30 01:45 02:00 Temperature Pulse Rate 109 H 111 H 114 H Respiratory 17 19 16 Rate Blood Pressure 138/95 136/99 132/96 O2 Sat by Pulse 100 100 100 Oximetry 11/06/16 11/06/16 11/06/16 02:15 02:30 02:45 Temperature Pulse Rate 111 H 115 H 121 H Respiratory 20 20 19 Rate Blood Pressure 128/89 134/93 132/95 O2 Sat by Pulse 100 100 100 Oximetry 11/06/16 11/06/16 11/06/16 03:00 03:15 03:20 Temperature Pulse Rate 127 H 118 H 116 H Respiratory 37 H 25 H Rate Blood Pressure 142/97 152/104 152/104 O2 Sat by Pulse 98 100 100 Oximetry 11/06/16 11/06/16 11/06/16 03:30 03:45 04:00 Temperature 98.9 F Pulse Rate 119 H 117 H 119 H Respiratory 22 23 18 Rate Blood Pressure 153/106 145/102 145/93 O2 Sat by Pulse 100 100 100 Oximetry 11/06/16 11/06/16 11/06/16 04:15 04:30 04:45 Temperature Pulse Rate 122 H 126 H 122 H Respiratory 21 18 27 H Rate Blood Pressure 146/103 147/99 154/103 O2 Sat by Pulse 100 100 98 Oximetry 11/06/16 11/06/16 11/06/16 05:00 05:15 05:30 Temperature Pulse Rate 122 H 125 H 123 H Respiratory 25 H 21 21 Rate Blood Pressure 145/105 150/101 154/101 O2 Sat by Pulse 100 98 100 Oximetry 11/06/16 11/06/16 11/06/16 05:45 06:00 06:10 Temperature Pulse Rate 119 H 123 H 116 H Respiratory 14 24 24 Rate Blood Pressure 153/105 146/99 152/104 O2 Sat by Pulse 100 100 100 Oximetry 11/06/16 11/06/16 11/06/16 06:15 06:30 06:45 Temperature Pulse Rate 121 H 119 H 129 H Respiratory 24 27 H 30 H Rate Blood Pressure 151/109 147/105 155/111 O2 Sat by Pulse 100 100 99 Oximetry 11/06/16 11/06/16 11/06/16 07:00 07:16 07:30 Temperature Pulse Rate 129 H 147 H 159 H Respiratory 25 H 38 H 39 H Rate Blood Pressure 144/82 158/113 146/98 O2 Sat by Pulse 100 95 81 L Oximetry 11/06/16 11/06/16 11/06/16 07:40 07:43 07:46 Temperature Pulse Rate 142 H 137 H Respiratory 39 H 38 H Rate Blood Pressure 173/134 157/114 O2 Sat by Pulse 73 L 95 85 Oximetry 11/06/16 11/06/16 11/06/16 08:00 08:15 08:30 Temperature 98.3 F Pulse Rate 137 H 129 H 133 H Respiratory 41 H 27 H 24 Rate Blood Pressure 154/103 141/100 150/99 O2 Sat by Pulse 90 96 97 Oximetry 11/06/16 11/06/16 11/06/16 08:45 09:00 09:15 Temperature Pulse Rate 127 H 136 H 133 H Respiratory 27 H 37 H 32 H Rate Blood Pressure 146/98 140/101 138/95 O2 Sat by Pulse 96 97 98 Oximetry 11/06/16 11/06/16 11/06/16 09:20 09:30 10:40 Temperature Pulse Rate 139 H 140 H 119 H Respiratory 30 H 22 Rate Blood Pressure 154/91 154/91 118/82 O2 Sat by Pulse 98 98 98 Oximetry 11/06/16 12:11 Temperature Pulse Rate 115 H Respiratory 21 Rate Blood Pressure 147/81 O2 Sat by Pulse 100 Oximetry - General Appearance General appearance: well-developed, well-nourished, appears stated age, intubated EENT: PERRL, mucous membranes moist Neck: no JVD, no thyromegaly, no carotid bruit, supple Respiratory: Present: Clear to Ascultation Cardiology: regular, normal heart rate Gastrointestinal: normal, normoactive bowel sounds Integumentary: no rash, other (no edema) - Lab 11/06/16 05:10 11/06/16 05:10 Most recent lab results Calcium 7.0 mg/dL (8.4-10.2) L 11/06/16 05:10 Phosphorus 2.40 mg/dL (2.5-4.5) L D 11/04/16 08:09 Magnesium 2.00 mg/dL (1.7-2.3) 11/04/16 08:09 Urine Creatinine 104.4 mg/dL (0.1-20.0) H 11/04/16 11:54 Urine Sodium 77 mEq/L 11/04/16 11:54
[2016-11-06] MEDS: NOVOLOG SUB-Q SCH ×4 (12:57→20:22)
[2016-11-06] MEDS ORDERED: NACL 0.45% 1000 ML 1,000 ML IV SCH (13:00)
[2016-11-06] MEDS ORDERED: VERSED IV PRN (13:08)
[2016-11-06] MEDS: ZOSYN/NS 2.25 GM/50ML 2.25 GM/50 ML BAG IV SCH ×3 (14:48→20:32)
--- NOTE | 2016-11-06 15:40 | Magnetic Resonance Report ---
MRA HEAD WITHOUT CONTRAST INDICATION: Intracranial hemorrhage. Evaluate for vascular malformation. COMPARISON: Recent neuroimaging. FINDINGS: MRA of the head performed without intravenous contrast and demonstrates no evidence of flow-limiting stenosis, occlusion or vascular malformation. Please note that detection of aneurysms less than 5 mm is limited on this exam. CONCLUSION: Normal study of the [place]. Thank you for the opportunity to participate in this patient's care.
[2016-11-06] MEDS: D50W (25GM) IV PRN (17:32)
--- NOTE | 2016-11-06 18:15 | Progress Note ---
Assessment and Plan Assessment and plan: 46-year-old female with history of diabetes hypertension noncompliant down and unresponsive in the field presented with DKA and septic shock. - Patient Problems (1) Acute respiratory failure with hypoxemia Current Visit: Yes Status: Acute Plan to address problem: Acute respiratory failure secondary to sepsis septic shock. Attempt to wean today. Seems to be doing a lot better on ventilator. (2) Altered mental status Current Visit: Yes Status: Acute Qualifiers: Qualified Code(s): R41.82 - Altered mental status, unspecified Plan to address problem: Altered mental status multifactorial septic shock acute respiratory failure intracranial bleed. (3) DKA (diabetic ketoacidoses) Current Visit: Yes Status: Acute Qualifiers: Qualified Code(s): E10.11 - Type 1 diabetes mellitus with ketoacidosis with coma Plan to address problem: Patient DKA remains suboptimally controlled blood sugar 248-80 09/07/1963 we'll increase Lantus to 15 units daily at bedtime. Be too aggressive patient not eating quite yet. (4) Hyperkalemia Current Visit: Yes Status: Resolved Plan to address problem: Corrected (5) Hypokalemia Current Visit: Yes Status: Acute (6) Respiratory failure Current Visit: Yes Status: Acute Qualifiers: Qualified Code(s): J96.00 - Acute respiratory failure, unspecified whether with hypoxia or hypercapnia (7) Septic shock Current Visit: Yes Status: Acute Plan to address problem: Patient septic shock was on pressors still acutely ill. Improving maintaining blood pressure continue vancomycin and Zosyn. Broad spectrum anabiotic's follow -up microbiology. (8) Acute renal failure Current Visit: No Status: Acute Plan to address problem: Patient with acute renal failure secondary to septic shock. History Interval history: Agent today laying on side no acute distress. Seems somewhat somnolent today. Patient scheduled to have attempt at extubation. Hospitalist Physical - Constitutional Vitals: Temp Pulse Resp BP Pulse Ox 98.8 F 113 H 18 122/84 100 11/06/16 16:00 11/06/16 16:45 11/06/16 16:45 11/06/16 16:45 11/06/16 16:45 General appearance: Present: mild distress, other (ill-appearing; intubated) - EENT ENT: other - Neck Neck: Present: supple, normal ROM (was sluggish) - Respiratory Respiratory: bilateral: diminished - Cardiovascular Rhythm: regular Heart Sounds: Present: S1 & S2 - Extremities Extremities: abnormal Extremity abnormal: edema, pulses diminished Peripheral Pulses: within normal limits - Abdominal General gastrointestinal: soft, non-tender, non-distended, no hypoactive bowel sounds, no absent bowel sounds, no hepatomegaly, no splenomegaly - Psychiatric Psychiatric: other (2 bated medically sedated) Results - Labs CBC & Chem 7: 11/06/16 05:10 11/06/16 05:10 Labs: Laboratory Last Values WBC 14.0 K/mm3 (4.5-11.0) H 11/06/16 05:10 RBC 2.90 M/mm3 (3.65-5.03) L 11/06/16 05:10 Hgb 8.1 gm/dl (10.1-14.3) L 11/06/16 05:10 Hct 24.9 % (30.3-42.9) L 11/06/16 05:10 MCV 86 fl (79-97) D 11/06/16 05:10 MCH 28 pg (28-32) 11/06/16 05:10 MCHC 33 % (30-34) 11/06/16 05:10 RDW 20.7 % (13.2-15.2) H 11/06/16 05:10 Plt Count 200 K/mm3 (140-440) 11/06/16 05:10 Lymph % (Auto) 15.5 % (13.4-35.0) 11/06/16 05:10 [place] % (Auto) 4.3 % (0.0-7.3) 11/06/16 05:10 Eos % (Auto) 0.7 % (0.0-4.3) 11/06/16 05:10 Baso % (Auto) 0.9 % (0.0-1.8) 11/06/16 05:10 Lymph # 2.2 K/mm3 (1.2-5.4) 11/06/16 05:10 [place] # 0.6 K/mm3 (0.0-0.8) 11/06/16 05:10 Eos # 0.1 K/mm3 (0.0-0.4) 11/06/16 05:10 Baso # 0.1 K/mm3 (0.0-0.1) 11/06/16 05:10 Add Manual Diff Complete 11/03/16 08:25 Total Counted 100 11/03/16 08:25 Seg Neutrophils % 78.6 % (40.0-70.0) H 11/06/16 05:10 Seg Neuts % (Manual) 78.0 % (40.0-70.0) H 11/03/16 08:25 Band Neutrophils % 2.0 % 11/03/16 08:25 Lymphocytes % (Manual) 13.0 % (13.4-35.0) L 11/03/16 08:25 Reactive Lymphs % (Man) 0 % 11/03/16 08:25 Monocytes % (Manual) 7.0 % (0.0-7.3) 11/03/16 08:25 Eosinophils % (Manual) 0 % (0.0-4.3) 11/03/16 08:25 Basophils % (Manual) 0 % (0.0-1.8) 11/03/16 08:25 Metamyelocytes % 0 % 11/03/16 08:25 Myelocytes % 0 % 11/03/16 08:25 Promyelocytes % 0 % 11/03/16 08:25 Blast Cells % 0 % 11/03/16 08:25 Nucleated RBC % Not Reportable 11/03/16 08:25 Seg Neutrophils # 11.0 K/mm3 (1.8-7.7) H 11/06/16 05:10 Seg Neutrophils # Man 17.6 K/mm3 (1.8-7.7) H 11/03/16 08:25 Band Neutrophils # 0.5 K/mm3 11/03/16 08:25 Lymphocytes # (Manual) 2.9 K/mm3 (1.2-5.4) 11/03/16 08:25 Abs React Lymphs (Man) 0.0 K/mm3 11/03/16 08:25 Monocytes # (Manual) 1.6 K/mm3 (0.0-0.8) H 11/03/16 08:25 Eosinophils # (Manual) 0.0 K/mm3 (0.0-0.4) 11/03/16 08:25 Basophils # (Manual) 0.0 K/mm3 (0.0-0.1) 11/03/16 08:25 Metamyelocytes # 0.0 K/mm3 11/03/16 08:25 Myelocytes # 0.0 K/mm3 11/03/16 08:25 Promyelocytes # 0.0 K/mm3 11/03/16 08:25 Blast Cells # 0.0 K/mm3 11/03/16 08:25 WBC Morphology Not Reportable 11/03/16 08:25 Hypersegmented Neuts Not Reportable 11/03/16 08:25 Hyposegmented Neuts Not Reportable 11/03/16 08:25 Hypogranular Neuts Not Reportable 11/03/16 08:25 Smudge Cells Not Reportable 11/03/16 08:25 Toxic Granulation Not Reportable 11/03/16 08:25 Toxic Vacuolation Not Reportable 11/03/16 08:25 Dohle Bodies Not Reportable 11/03/16 08:25 Pelger-Huet Anomaly Not Reportable 11/03/16 08:25 Mary Rods Not Reportable 11/03/16 08:25 Platelet Estimate Not Reportable 11/03/16 08:25 Clumped Platelets Not Reportable 11/03/16 08:25 Plt Clumps, EDTA Not Reportable 11/03/16 08:25 Large Platelets Not Reportable 11/03/16 08:25 Giant Platelets Not Reportable 11/03/16 08:25 Platelet Satelliting Not Reportable 11/03/16 08:25 Plt Morphology Comment Not Reportable 11/03/16 08:25 RBC Morphology Not Reportable 11/03/16 08:25 Dimorphic RBCs Not Reportable 11/03/16 08:25 Polychromasia Not Reportable 11/03/16 08:25 Hypochromasia Not Reportable 11/03/16 08:25 Poikilocytosis Not Reportable 11/03/16 08:25 Anisocytosis 2+ 11/03/16 08:25 Microcytosis Not Reportable 11/03/16 08:25 Macrocytosis 2+ 11/03/16 08:25 Spherocytes Not Reportable 11/03/16 08:25 Pappenheimer Bodies Not Reportable 11/03/16 08:25 Sickle Cells Not Reportable 11/03/16 08:25 Target Cells Not Reportable 11/03/16 08:25 Tear Drop Cells Not Reportable 11/03/16 08:25 Ovalocytes Not Reportable 11/03/16 08:25 Helmet Cells Not Reportable 11/03/16 08:25 [place] Bodies Not Reportable 11/03/16 08:25 [place] Rings Not Reportable 11/03/16 08:25 [place] Cells Not Reportable 11/03/16 08:25 Bite Cells Not Reportable 11/03/16 08:25 Crenated Cell Not Reportable 11/03/16 08:25 Elliptocytes Not Reportable 11/03/16 08:25 Acanthocytes (Spur) Not Reportable 11/03/16 08:25 Rouleaux Not Reportable 11/03/16 08:25 Hemoglobin C Crystals Not Reportable 11/03/16 08:25 Schistocytes Not Reportable 11/03/16 08:25 Malaria parasites Not Reportable 11/03/16 08:25 Michael Bodies Not Reportable 11/03/16 08:25 Hem Pathologist Commnt No 11/03/16 08:25 PT 17.3 Sec. (12.2-14.9) H 11/03/16 08:25 INR 1.42 (0.87-1.13) H 11/03/16 08:25 APTT 28.6 Sec. (24.2-36.6) 11/06/16 05:10 D-Dimer 2416.88 ng/mlDDU (0-234) H 11/03/16 08:25 POC ABG pH 7.411 (7.35-7.45) 11/06/16 12:21 POC ABG pCO2 28.1 (35-45) L 11/06/16 12:21 POC ABG pO2 78 (80-105) L 11/06/16 12:21 POC ABG HCO3 17.8 11/06/16 12:21 POC ABG Total CO2 19 11/06/16 12:21 POC ABG O2 Sat 96 11/06/16 12:21 POC ABG Base Excess -7 11/06/16 12:21 VBG pH 6.811 (7.320-7.420) L* 11/03/16 08:25 FiO2 25 % 11/06/16 12:21 Sodium 145 mmol/L (137-145) D 11/06/16 05:10 Potassium 4.0 mmol/L (3.6-5.0) D 11/06/16 05:10 Chloride 110.0 mmol/L (98-107) H 11/06/16 05:10 Carbon Dioxide 16 mmol/L (22-30) L 11/06/16 05:10 Anion Gap 23 mmol/L 11/06/16 05:10 BUN 28 mg/dL (7-17) H 11/06/16 05:10 Creatinine 2.5 mg/dL (0.7-1.2) H 11/06/16 05:10 Estimated GFR 25 ml/min 11/06/16 05:10 BUN/Creatinine Ratio 11.20 % 11/06/16 05:10 Glucose 189 mg/dL (65-100) H 11/06/16 05:10 POC Glucose 243 (70-105) H 11/06/16 12:20 Hemoglobin A1c 13.5 % (4-6) H 11/03/16 11:44 Lactic Acid 1.80 mmol/L (0.7-2.0) 11/04/16 14:40 Calcium 7.0 mg/dL (8.4-10.2) L 11/06/16 05:10 Phosphorus 2.40 mg/dL (2.5-4.5) L D 11/04/16 08:09 Magnesium 2.00 mg/dL (1.7-2.3) 11/04/16 08:09 Total Creatine Kinase 168 units/L (30-135) H 11/03/16 14:22 CK-MB (CK-2) 3.4 ng/mL (0.0-4.0) 11/03/16 14:22 CK-MB (CK-2) Rel Index 2.0 (0-4) 11/03/16 14:22 Troponin T 0.039 ng/mL (0.00-0.029) H 11/03/16 14:22 C-Reactive Protein 3.60 mg/dL (0.00-1.30) H 11/04/16 14:40 Triglycerides 613 mg/dL (2-149) H 11/03/16 10:08 Cholesterol 193 mg/dL (50-199) 11/03/16 10:08 LDL Cholesterol Direct TNR 11/03/16 10:08 HDL Cholesterol 25 mg/dL (40-59) L 11/03/16 10:08 Cholesterol/HDL Ratio 7.72 % 11/03/16 10:08 Urine Color Yellow (Yellow) 11/03/16 12:23 Urine Turbidity Slightly-cloudy (Clear) 11/03/16 12:23 Urine pH 5.0 (5.0-7.0) 11/03/16 12:23 Ur Specific [place] 1.020 (1.003-1.030) 11/03/16 12:23 Urine Protein 30 mg/dl mg/dL (Negative) 11/03/16 12:23 Urine Glucose (UA) >=500 mg/dL (Negative) 11/03/16 12:23 Urine Ketones 20 mg/dL (Negative) 11/03/16 12:23 Urine Blood Neg (Negative) 11/03/16 12:23 Urine Nitrite Neg (Negative) 11/03/16 12:23 Urine Bilirubin Neg (Negative) 11/03/16 12:23 Urine Urobilinogen < 2.0 mg/dL (<2.0) 11/03/16 12:23 Ur Leukocyte Esterase Neg (Negative) 11/03/16 12:23 Urine WBC (Auto) 2.0 /HPF (0.0-6.0) 11/03/16 12:23 Urine RBC (Auto) 1.0 /HPF (0.0-6.0) 11/03/16 12:23 U Epithel Cells (Auto) < 1.0 /HPF (0-13.0) 11/03/16 12:23 Urine Mucus Few /HPF 11/03/16 12:23 Urine Osmolality 404 Mosm/kg 11/04/16 11:54 Urine Creatinine 104.4 mg/dL (0.1-20.0) H 11/04/16 11:54 Urine Sodium 77 mEq/L 11/04/16 11:54 Fraction Sodium Excret 0.9 11/04/16 11:54 Urine Opiates Screen Presumptive negative 11/03/16 12:23 Urine Methadone Screen Presumptive negative 11/03/16 12:23 Ur Barbiturates Screen Presumptive negative 11/03/16 12:23 Ur Phencyclidine Scrn Presumptive negative 11/03/16 12:23 Ur Amphetamines Screen Presumptive negative 11/03/16 12:23 U Benzodiazepines Scrn Presumptive negative 11/03/16 12:23 Urine Cocaine Screen Presumptive negative 11/03/16 12:23 U Marijuana (THC) Screen Presumptive positive 11/03/16 12:23 Drugs of Abuse Note Disclamer 11/03/16 12:23 Blood Type O POSITIVE 11/03/16 08:45 Antibody Screen TNR 11/03/16 08:45 ISAIAH Antibody Screen Negative 11/03/16 08:45
[2016-11-06] MEDS: D5/0.45NS 1,000 ML IV SCH (19:45)
[2016-11-07] MEDS: NOVOLOG SUB-Q SCH ×5 (00:18→21:43)
[2016-11-07] MEDS: LOPRESSOR IV SCH ×3 (00:20→12:21)
[2016-11-07] MEDS: ZOSYN/NS 2.25 GM/50ML 2.25 GM/50 ML BAG IV SCH ×3 (06:30→22:06)
[2016-11-07 09:27] LABS: BUN/Creatinine Ratio 11.66; Calcium 6.9 mg/dL (8.4-10.2); Chloride 111.1 mmol/L (98-107); Potassium 3.7 mmol/L (3.6-5.0)
--- NOTE | 2016-11-07 09:52 | XRay Report ---
AP chest History: Pneumonia, fever. Findings: The patient has been extubated since 11/03/16. There is mild bilateral perihilar prominence. This could represent early infiltrate or congestive changes. No pleural effusion or pneumothorax. Heart size is within normal limits. Impression: Bilateral perihilar infiltrates as described.
[2016-11-07] MEDS: D5/0.45NS 1,000 ML IV SCH (10:39)
[2016-11-07] MEDS: PEPCID IV SCH (10:39)
--- NOTE | 2016-11-07 11:18 | Progress Note ---
Assessment and Plan Assessment and plan: 46-year-old female with history of diabetes hypertension noncompliant down and unresponsive in the field presented with DKA and septic shock. - Patient Problems (1) Acute respiratory failure with hypoxemia Current Visit: Yes Status: Acute Plan to address problem: Approximate respiratory failure resolved patient extubated tolerating well was secondary to sepsis (2) Altered mental status Current Visit: Yes Status: Acute Qualifiers: Altered mental status type: unspecified Coma depth: C Coma timing: C Qualified Code(s): R41.82 - Altered mental status, unspecified Plan to address problem: Altered mental status resolved toxic metabolic encephalopathy resolved with correction of underlying etiology. (3) DKA (diabetic ketoacidoses) Current Visit: Yes Status: Acute Qualifiers: Diabetes mellitus type: type 1 Diabetes mellitus complication detail: with coma Diabetes mellitus skilled nursing insulin use: D Qualified Code(s): E10.11 - Type 1 diabetes mellitus with ketoacidosis with coma Plan to address problem: DKA has resolved patient no longer acidotic Accu-Cheks have been much better controlled with DC the insulin insulin drip and start patient on diabetic diet. (4) Hyperkalemia Current Visit: Yes Status: Resolved Plan to address problem: Corrected (5) Hypokalemia Current Visit: Yes Status: Acute (6) Respiratory failure Current Visit: Yes Status: Acute Qualifiers: Chronicity: acute Respiratory failure complication: unspecified whether with hypoxia or hypercapnia Qualified Code(s): J96.00 - Acute respiratory failure, unspecified whether with hypoxia or hypercapnia Plan to address problem: History of face see above has resolved. (7) Septic shock Current Visit: Yes Status: Acute Plan to address problem: Optic shock has resolved. Chest x-ray showed mild bilateral perihilar infiltrate however clinical exam patient is still remarkable no wheezing no crackles. Extubated tolerated well. (8) Acute renal failure Current Visit: No Status: Acute Qualifiers: Acute renal failure type: A Plan to address problem: Patient with acute renal failure secondary to septic shock. History Interval history: H and much improved sitting up at bedside resting comfortably with 3 L nasal cannula satting 100%. No pain no fever or chills. Hospital course unremarkable p.m. Hospitalist Physical - Constitutional Vitals: Temp Pulse Resp BP Pulse Ox 99.8 F H 111 H 21 122/78 98 11/07/16 08:00 11/07/16 06:51 11/07/16 05:00 11/07/16 06:51 11/07/16 05:00 General appearance: Present: no acute distress, other (ill-appearing; intubated) - EENT Eyes: Present: PERRL, EOM intact ENT: hearing intact, clear oral mucosa, dentition normal - Neck Neck: Present: supple, normal ROM - Respiratory Respiratory effort: normal Respiratory: bilateral: CTA - Cardiovascular Rhythm: regular Heart Sounds: Present: S1 & S2 - Extremities Extremities: no ischemia, pulses intact, pulses symmetrical, No edema Peripheral Pulses: within normal limits - Abdominal General gastrointestinal: soft, non-tender, non-distended, hypoactive bowel sounds - Integumentary Integumentary: Present: clear, warm, dry - Psychiatric Psychiatric: appropriate mood/affect, cooperative - Neurologic Neurologic: CNII-XII intact, no focal deficits, moves all extremities Results - Labs CBC & Chem 7: 11/06/16 05:10 11/07/16 06:45 Labs: Laboratory Last Values WBC 14.0 K/mm3 (4.5-11.0) H 11/06/16 05:10 RBC 2.90 M/mm3 (3.65-5.03) L 11/06/16 05:10 Hgb 8.1 gm/dl (10.1-14.3) L 11/06/16 05:10 Hct 24.9 % (30.3-42.9) L 11/06/16 05:10 MCV 86 fl (79-97) D 11/06/16 05:10 MCH 28 pg (28-32) 11/06/16 05:10 MCHC 33 % (30-34) 11/06/16 05:10 RDW 20.7 % (13.2-15.2) H 11/06/16 05:10 Plt Count 200 K/mm3 (140-440) 11/06/16 05:10 Lymph % (Auto) 15.5 % (13.4-35.0) 11/06/16 05:10 [place] % (Auto) 4.3 % (0.0-7.3) 11/06/16 05:10 Eos % (Auto) 0.7 % (0.0-4.3) 11/06/16 05:10 Baso % (Auto) 0.9 % (0.0-1.8) 11/06/16 05:10 Lymph # 2.2 K/mm3 (1.2-5.4) 11/06/16 05:10 [place] # 0.6 K/mm3 (0.0-0.8) 11/06/16 05:10 Eos # 0.1 K/mm3 (0.0-0.4) 11/06/16 05:10 Baso # 0.1 K/mm3 (0.0-0.1) 11/06/16 05:10 Add Manual Diff Complete 11/03/16 08:25 Total Counted 100 11/03/16 08:25 Seg Neutrophils % 78.6 % (40.0-70.0) H 11/06/16 05:10 Seg Neuts % (Manual) 78.0 % (40.0-70.0) H 11/03/16 08:25 Band Neutrophils % 2.0 % 11/03/16 08:25 Lymphocytes % (Manual) 13.0 % (13.4-35.0) L 11/03/16 08:25 Reactive Lymphs % (Man) 0 % 11/03/16 08:25 Monocytes % (Manual) 7.0 % (0.0-7.3) 11/03/16 08:25 Eosinophils % (Manual) 0 % (0.0-4.3) 11/03/16 08:25 Basophils % (Manual) 0 % (0.0-1.8) 11/03/16 08:25 Metamyelocytes % 0 % 11/03/16 08:25 Myelocytes % 0 % 11/03/16 08:25 Promyelocytes % 0 % 11/03/16 08:25 Blast Cells % 0 % 11/03/16 08:25 Nucleated RBC % Not Reportable 11/03/16 08:25 Seg Neutrophils # 11.0 K/mm3 (1.8-7.7) H 11/06/16 05:10 Seg Neutrophils # Man 17.6 K/mm3 (1.8-7.7) H 11/03/16 08:25 Band Neutrophils # 0.5 K/mm3 11/03/16 08:25 Lymphocytes # (Manual) 2.9 K/mm3 (1.2-5.4) 11/03/16 08:25 Abs React Lymphs (Man) 0.0 K/mm3 11/03/16 08:25 Monocytes # (Manual) 1.6 K/mm3 (0.0-0.8) H 11/03/16 08:25 Eosinophils # (Manual) 0.0 K/mm3 (0.0-0.4) 11/03/16 08:25 Basophils # (Manual) 0.0 K/mm3 (0.0-0.1) 11/03/16 08:25 Metamyelocytes # 0.0 K/mm3 11/03/16 08:25 Myelocytes # 0.0 K/mm3 11/03/16 08:25 Promyelocytes # 0.0 K/mm3 11/03/16 08:25 Blast Cells # 0.0 K/mm3 11/03/16 08:25 WBC Morphology Not Reportable 11/03/16 08:25 Hypersegmented Neuts Not Reportable 11/03/16 08:25 Hyposegmented Neuts Not Reportable 11/03/16 08:25 Hypogranular Neuts Not Reportable 11/03/16 08:25 Smudge Cells Not Reportable 11/03/16 08:25 Toxic Granulation Not Reportable 11/03/16 08:25 Toxic Vacuolation Not Reportable 11/03/16 08:25 Dohle Bodies Not Reportable 11/03/16 08:25 Pelger-Huet Anomaly Not Reportable 11/03/16 08:25 Mary Rods Not Reportable 11/03/16 08:25 Platelet Estimate Not Reportable 11/03/16 08:25 Clumped Platelets Not Reportable 11/03/16 08:25 Plt Clumps, EDTA Not Reportable 11/03/16 08:25 Large Platelets Not Reportable 11/03/16 08:25 Giant Platelets Not Reportable 11/03/16 08:25 Platelet Satelliting Not Reportable 11/03/16 08:25 Plt Morphology Comment Not Reportable 11/03/16 08:25 RBC Morphology Not Reportable 11/03/16 08:25 Dimorphic RBCs Not Reportable 11/03/16 08:25 Polychromasia Not Reportable 11/03/16 08:25 Hypochromasia Not Reportable 11/03/16 08:25 Poikilocytosis Not Reportable 11/03/16 08:25 Anisocytosis 2+ 11/03/16 08:25 Microcytosis Not Reportable 11/03/16 08:25 Macrocytosis 2+ 11/03/16 08:25 Spherocytes Not Reportable 11/03/16 08:25 Pappenheimer Bodies Not Reportable 11/03/16 08:25 Sickle Cells Not Reportable 11/03/16 08:25 Target Cells Not Reportable 11/03/16 08:25 Tear Drop Cells Not Reportable 11/03/16 08:25 Ovalocytes Not Reportable 11/03/16 08:25 Helmet Cells Not Reportable 11/03/16 08:25 [place] Bodies Not Reportable 11/03/16 08:25 [place] Rings Not Reportable 11/03/16 08:25 [place] Cells Not Reportable 11/03/16 08:25 Bite Cells Not Reportable 11/03/16 08:25 Crenated Cell Not Reportable 11/03/16 08:25 Elliptocytes Not Reportable 11/03/16 08:25 Acanthocytes (Spur) Not Reportable 11/03/16 08:25 Rouleaux Not Reportable 11/03/16 08:25 Hemoglobin C Crystals Not Reportable 11/03/16 08:25 Schistocytes Not Reportable 11/03/16 08:25 Malaria parasites Not Reportable 11/03/16 08:25 Michael Bodies Not Reportable 11/03/16 08:25 Hem Pathologist Commnt No 11/03/16 08:25 PT 17.3 Sec. (12.2-14.9) H 11/03/16 08:25 INR 1.42 (0.87-1.13) H 11/03/16 08:25 APTT 28.6 Sec. (24.2-36.6) 11/06/16 05:10 D-Dimer 2416.88 ng/mlDDU (0-234) H 11/03/16 08:25 POC ABG pH 7.411 (7.35-7.45) 11/06/16 12:21 POC ABG pCO2 28.1 (35-45) L 11/06/16 12:21 POC ABG pO2 78 (80-105) L 11/06/16 12:21 POC ABG HCO3 17.8 11/06/16 12:21 POC ABG Total CO2 19 11/06/16 12:21 POC ABG O2 Sat 96 11/06/16 12:21 POC ABG Base Excess -7 11/06/16 12:21 VBG pH 6.811 (7.320-7.420) L* 11/03/16 08:25 FiO2 25 % 11/06/16 12:21 Sodium 145 mmol/L (137-145) D 11/06/16 05:10 Potassium 4.0 mmol/L (3.6-5.0) D 11/06/16 05:10 Chloride 110.0 mmol/L (98-107) H 11/06/16 05:10 Carbon Dioxide 18 mmol/L (22-30) L 11/07/16 06:45 Anion Gap 23 mmol/L 11/06/16 05:10 BUN 21 mg/dL (7-17) H 11/07/16 06:45 Creatinine 1.8 mg/dL (0.7-1.2) H 11/07/16 06:45 Estimated GFR 36 ml/min 11/07/16 06:45 BUN/Creatinine Ratio 11.66 % 11/07/16 06:45 Glucose 133 mg/dL (65-100) H 11/07/16 06:45 POC Glucose 84 (70-105) 11/07/16 04:41 Hemoglobin A1c 13.5 % (4-6) H 11/03/16 11:44 Lactic Acid 1.80 mmol/L (0.7-2.0) 11/04/16 14:40 Calcium 6.9 mg/dL (8.4-10.2) L 11/07/16 06:45 Phosphorus 1.70 mg/dL (2.5-4.5) L 11/07/16 06:45 Magnesium 2.00 mg/dL (1.7-2.3) 11/04/16 08:09 Total Creatine Kinase 168 units/L (30-135) H 11/03/16 14:22 CK-MB (CK-2) 3.4 ng/mL (0.0-4.0) 11/03/16 14:22 CK-MB (CK-2) Rel Index 2.0 (0-4) 11/03/16 14:22 Troponin T 0.039 ng/mL (0.00-0.029) H 11/03/16 14:22 C-Reactive Protein 3.60 mg/dL (0.00-1.30) H 11/04/16 14:40 Triglycerides 613 mg/dL (2-149) H 11/03/16 10:08 Cholesterol 193 mg/dL (50-199) 11/03/16 10:08 LDL Cholesterol Direct TNR 11/03/16 10:08 HDL Cholesterol 25 mg/dL (40-59) L 11/03/16 10:08 Cholesterol/HDL Ratio 7.72 % 11/03/16 10:08 Urine Color Yellow (Yellow) 11/03/16 12:23 Urine Turbidity Slightly-cloudy (Clear) 11/03/16 12:23 Urine pH 5.0 (5.0-7.0) 11/03/16 12:23 Ur Specific [place] 1.020 (1.003-1.030) 11/03/16 12:23 Urine Protein 30 mg/dl mg/dL (Negative) 11/03/16 12:23 Urine Glucose (UA) >=500 mg/dL (Negative) 11/03/16 12:23 Urine Ketones 20 mg/dL (Negative) 11/03/16 12:23 Urine Blood Neg (Negative) 11/03/16 12:23 Urine Nitrite Neg (Negative) 11/03/16 12:23 Urine Bilirubin Neg (Negative) 11/03/16 12:23 Urine Urobilinogen < 2.0 mg/dL (<2.0) 11/03/16 12:23 Ur Leukocyte Esterase Neg (Negative) 11/03/16 12:23 Urine WBC (Auto) 2.0 /HPF (0.0-6.0) 11/03/16 12:23 Urine RBC (Auto) 1.0 /HPF (0.0-6.0) 11/03/16 12:23 U Epithel Cells (Auto) < 1.0 /HPF (0-13.0) 11/03/16 12:23 Urine Mucus Few /HPF 11/03/16 12:23 Urine Osmolality 404 Mosm/kg 11/04/16 11:54 Urine Creatinine 104.4 mg/dL (0.1-20.0) H 11/04/16 11:54 Urine Sodium 77 mEq/L 11/04/16 11:54 Fraction Sodium Excret 0.9 11/04/16 11:54 Urine Opiates Screen Presumptive negative 11/03/16 12:23 Urine Methadone Screen Presumptive negative 11/03/16 12:23 Ur Barbiturates Screen Presumptive negative 11/03/16 12:23 Ur Phencyclidine Scrn Presumptive negative 11/03/16 12:23 Ur Amphetamines Screen Presumptive negative 11/03/16 12:23 U Benzodiazepines Scrn Presumptive negative 11/03/16 12:23 Urine Cocaine Screen Presumptive negative 11/03/16 12:23 U Marijuana (THC) Screen Presumptive positive 11/03/16 12:23 Drugs of Abuse Note Disclamer 11/03/16 12:23 Blood Type O POSITIVE 11/03/16 08:45 Antibody Screen TNR 11/03/16 08:45 ISAIAH Antibody Screen Negative 11/03/16 08:45 - Imaging and Cardiology Chest x-ray: image reviewed
--- NOTE | 2016-11-07 11:23 | Progress Note ---
Assessment and Plan Impression * Acute renal failure. Most likely prerenal. May have progressed to ATN. Her baseline creatinine seems to be approximately 1-1.2. She is currently nonoliguric * DKA * Sepsis * Respiratory failure * Hypernatremia Recommendations * Patient's creatinine is slowly improving . She is nonoliguric. * Her acidosis is also improving. Other electrolytes are still pending * Continue IV hydration * Monitor electrolytes. * Her phosphorus level is low at 1.7. Shall replace * Continue empiric IV antibiotics * Her renal ultrasound was essentially normal. Fractional excretion of sodium is 0.9% * Monitor fluid status and electrolytes closely Subjective Date of service: 11/07/16 Principal diagnosis: Acute Hypoxemic Respiratory Failure; DKA Interval history: remains in the ICU. She has been extubated. Denies any shortness of breath. Denies any nausea or vomiting Objective - Vital Signs Vital signs: Vital Signs - 12hr 11/06/16 11/06/16 11/07/16 23:30 23:45 00:00 Temperature 100 F H Pulse Rate 111 H 112 H 121 H Respiratory 26 H 31 H 20 Rate Blood Pressure 140/94 140/98 140/98 O2 Sat by Pulse 98 97 Oximetry 11/07/16 11/07/16 11/07/16 00:13 00:16 00:20 Temperature 98 F Pulse Rate 113 H 110 H Respiratory 22 Rate Blood Pressure 138/93 138/93 O2 Sat by Pulse 92 Oximetry 11/07/16 11/07/16 11/07/16 00:30 00:45 01:00 Temperature Pulse Rate 112 H 103 H 102 H Respiratory 28 H 12 20 Rate Blood Pressure 126/90 135/90 141/92 O2 Sat by Pulse 94 97 96 Oximetry 11/07/16 11/07/16 11/07/16 01:15 01:30 01:45 Temperature Pulse Rate 112 H 111 H 108 H Respiratory 16 17 30 H Rate Blood Pressure 117/74 122/86 112/77 O2 Sat by Pulse 100 98 98 Oximetry 11/07/16 11/07/16 11/07/16 02:00 02:15 02:30 Temperature Pulse Rate 111 H 120 H 111 H Respiratory 30 H 22 19 Rate Blood Pressure 113/80 124/85 120/80 O2 Sat by Pulse 100 98 99 Oximetry 11/07/16 11/07/16 11/07/16 02:45 03:00 03:15 Temperature Pulse Rate 111 H 127 H 118 H Respiratory 25 H 23 30 H Rate Blood Pressure 128/92 138/81 121/82 O2 Sat by Pulse 97 90 95 Oximetry 11/07/16 11/07/16 11/07/16 03:30 03:45 03:47 Temperature 98.9 F Pulse Rate 107 H 111 H Respiratory 24 21 Rate Blood Pressure 128/86 123/83 O2 Sat by Pulse 98 98 Oximetry 11/07/16 11/07/16 11/07/16 04:00 04:15 04:30 Temperature Pulse Rate 112 H 111 H 113 H Respiratory 26 H 24 22 Rate Blood Pressure 119/80 122/78 136/103 O2 Sat by Pulse 98 98 98 Oximetry 11/07/16 11/07/16 11/07/16 04:45 05:00 06:51 Temperature Pulse Rate 117 H 110 H 111 H Respiratory 19 21 Rate Blood Pressure 128/84 142/97 122/78 O2 Sat by Pulse 98 98 Oximetry 11/07/16 08:00 Temperature 99.8 F H Pulse Rate Respiratory Rate Blood Pressure O2 Sat by Pulse Oximetry - General Appearance General appearance: well-developed, well-nourished, appears stated age EENT: PERRL, mucous membranes moist Neck: no JVD, no thyromegaly, no carotid bruit, supple Respiratory: Present: Clear to Ascultation Cardiology: regular, normal heart rate, S1S2, no murmurs Gastrointestinal: normal, normoactive bowel sounds Integumentary: no rash, other (no edema) - Lab 11/06/16 05:10 11/07/16 06:45 Most recent lab results Calcium 6.9 mg/dL (8.4-10.2) L 11/07/16 06:45 Phosphorus 1.70 mg/dL (2.5-4.5) L 11/07/16 06:45 Magnesium 2.00 mg/dL (1.7-2.3) 11/04/16 08:09 Urine Creatinine 104.4 mg/dL (0.1-20.0) H 11/04/16 11:54 Urine Sodium 77 mEq/L 11/04/16 11:54
--- NOTE | 2016-11-07 12:06 | Progress Note ---
Assessment and Plan Assessment: Transient ST segment elevations resolved Walter negative for AMI Continue ASA Ischemic evaluation once clinically stable Sinus tachycardia monitor Cardiomyopathy EF 40 - 45% continue low dose metoprolol 5mg IV Q6 hours No PEDRO given ARF DKA/hyperkalemia Potassium Pending Acute respiratory failure Extubated HTN DM Elevated DDimer For V/Q scan Pending Noncompliance Hypernatremia Anemia Subjective Date of service: 11/07/16 Principal diagnosis: Acute Hypoxemic Respiratory Failure; DKA Interval history: Pt sitting up in bed. Denies chest pain or shortness of breath. Objective Vital Signs Temp Pulse Resp BP Pulse Ox 11/07/16 11:00 110 H 25 H 147/99 100 11/07/16 10:45 112 H 15 149/84 100 11/07/16 10:30 107 H 24 139/88 99 11/07/16 10:15 107 H 19 127/87 100 11/07/16 10:00 111 H 19 135/91 11/07/16 09:45 109 H 29 H 135/91 99 11/07/16 09:30 108 H 24 145/100 98 11/07/16 09:15 106 H 22 129/101 98 11/07/16 09:00 109 H 22 119/89 98 11/07/16 08:46 114 H 20 127/91 11/07/16 08:30 110 H 28 H 138/88 99 11/07/16 08:16 125 H 16 138/88 99 11/07/16 08:15 98 11/07/16 08:00 99.8 F H 109 H 21 138/88 100 11/07/16 07:46 125 H 19 128/92 97 11/07/16 07:30 111 H 25 H 127/84 98 11/07/16 07:16 119 H 14 110/67 96 11/07/16 07:00 114 H 29 H 130/91 95 11/07/16 06:51 111 H 122/78 11/07/16 06:45 113 H 21 130/91 94 11/07/16 06:30 133 H 16 131/90 97 11/07/16 06:16 110 H 25 H 131/90 96 11/07/16 06:00 111 H 26 H 131/90 96 11/07/16 05:46 108 H 26 H 131/90 98 11/07/16 05:30 110 H 17 131/90 99 06/03/17 05:15 113 H 24 131/90 99 11/07/16 05:00 110 H 21 142/97 98 11/07/16 04:45 117 H 19 128/84 98 11/07/16 04:30 113 H 22 136/103 98 11/07/16 04:15 111 H 24 122/78 98 11/07/16 04:00 112 H 26 H 119/80 98 11/07/16 03:47 98.9 F 11/07/16 03:45 111 H 21 123/83 98 11/07/16 03:30 107 H 24 128/86 98 11/07/16 03:15 118 H 30 H 121/82 95 11/07/16 03:00 127 H 23 138/81 90 11/07/16 02:45 111 H 25 H 128/92 97 11/07/16 02:30 111 H 19 120/80 99 11/07/16 02:15 120 H 22 124/85 98 11/07/16 02:00 111 H 30 H 113/80 100 11/07/16 01:45 108 H 30 H 112/77 98 11/07/16 01:30 111 H 17 122/86 98 11/07/16 01:15 112 H 16 117/74 100 11/07/16 01:00 102 H 20 141/92 96 11/07/16 00:45 103 H 12 135/90 97 11/07/16 00:30 112 H 28 H 126/90 94 11/07/16 00:20 110 H 138/93 11/07/16 00:16 113 H 22 138/93 92 11/07/16 00:13 98 F 11/07/16 00:00 100 F H 121 H 20 140/98 11/06/16 23:45 112 H 31 H 140/98 97 11/06/16 23:30 111 H 26 H 140/94 98 11/06/16 23:15 112 H 19 135/90 98 11/06/16 23:00 117 H 22 128/82 96 11/06/16 22:45 124 H 33 H 127/88 96 11/06/16 22:30 117 H 22 119/86 95 11/06/16 22:15 107 H 15 138/90 96 11/06/16 22:00 108 H 26 H 121/85 97 11/06/16 21:45 110 H 27 H 124/87 99 11/06/16 21:30 116 H 16 142/90 94 11/06/16 21:15 103 H 24 129/89 95 11/06/16 21:00 109 H 21 121/91 93 11/06/16 20:45 105 H 27 H 127/93 100 11/06/16 20:32 113 H 138/100 11/06/16 20:30 112 H 24 144/90 99 11/06/16 20:15 110 H 22 138/100 99 11/06/16 20:04 112 H 27 H 142/102 97 11/06/16 20:00 110 H 22 142/102 98 11/06/16 19:55 97.5 F L 11/06/16 19:45 107 H 23 140/97 100 11/06/16 19:30 110 H 19 116/87 99 11/06/16 19:15 107 H 25 H 134/95 97 11/06/16 19:00 110 H 22 144/104 98 11/06/16 18:45 108 H 17 129/88 98 11/06/16 18:30 105 H 22 127/85 98 11/06/16 18:15 113 H 22 133/91 100 11/06/16 18:00 114 H 30 H 136/100 99 11/06/16 17:45 115 H 16 147/95 97 11/06/16 17:30 109 H 19 142/103 100 11/06/16 17:15 112 H 19 122/81 100 11/06/16 17:00 112 H 26 H 143/102 98 11/06/16 16:45 113 H 18 122/84 100 11/06/16 16:30 110 H 27 H 134/99 100 11/06/16 16:15 106 H 22 126/89 99 11/06/16 16:00 98.8 F 108 H 26 H 122/89 100 11/06/16 15:52 100 11/06/16 15:45 111 H 23 110/81 99 11/06/16 15:41 106 H 116/86 98 11/06/16 15:30 116 H 38 H 116/86 94 11/06/16 15:15 104 H 20 108/80 100 11/06/16 15:01 110 H 112/82 11/06/16 15:00 102 H 19 105/80 98 11/06/16 14:45 111 H 18 112/82 100 11/06/16 14:30 113 H 19 106/73 100 11/06/16 14:15 113 H 19 105/75 99 11/06/16 14:00 120 H 23 134/97 91 11/06/16 13:46 116 H 19 98 11/06/16 13:45 108 H 9 L 112/82 100 11/06/16 13:42 109 H 18 98 11/06/16 12:45 111 H 18 126/90 99 11/06/16 12:30 113 H 18 126/87 99 11/06/16 12:15 135 H 20 152/99 99 11/06/16 12:11 115 H 21 147/81 100 - Physical Examination General: Other (intubated) HEENT: Positive: PERRL, Normocephaly, Mucus Membranes Moist Neck: Positive: neck supple, trachea midline Cardiac: Positive: Regular Rhythm, Tachycardia Lungs: Positive: clear to auscultation, Normal Breath Sounds Abdomen: Positive: Soft, Active Bowel Sounds Skin: Positive: Clear. Negative: Rash, Wound Musculoskeletal: No Fluid Collection, No Pain, Normal Range of Motion Extremities: Present: upper extr. pulses, lower extr. pulses. Absent: edema - Labs and Meds Comprehensive Metabolic Panel 11/07/16 Range/Units 06:45 Carbon Dioxide 18 L (22-30) mmol/L BUN 21 H (7-17) mg/dL Creatinine 1.8 H (0.7-1.2) mg/dL Glucose 133 H (65-100) mg/dL Calcium 6.9 L (8.4-10.2) mg/dL - Imaging and Cardiology EKG: report reviewed, image reviewed Echo: report reviewed (ECHO 11/03/16: EF 40-45%, RVSP 52mmHg) - EKG Sinus rhythms and dysrhythmias: sinus tachycardia
--- NOTE | 2016-11-07 12:11 | Progress Note ---
Assessment and Plan - Patient Problems (1) Acute respiratory failure with hypoxemia Current Visit: Yes Status: Acute Plan to address problem: - continue bronchodilators and pulmonary toilet - continue aspiration precautions - wean oxygen to keep sats > 94% - much improved (2) Altered mental status Current Visit: Yes Status: Acute Qualifiers: Altered mental status type: unspecified Coma depth: C Coma timing: C Qualified Code(s): R41.82 - Altered mental status, unspecified Plan to address problem: - CT brain suggest SAH - neurology consult placed - MRA negative - clinically resolved (3) D-dimer, elevated Current Visit: Yes Status: Acute Plan to address problem: - VTE w/up negative - on SCD's - holding heparin till SAH ruled out (4) DKA (diabetic ketoacidoses) Current Visit: Yes Status: Acute Qualifiers: Diabetes mellitus type: type 1 Diabetes mellitus complication detail: with coma 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: D Qualified Code(s): E10.11 - Type 1 diabetes mellitus with ketoacidosis with coma Plan to address problem: - resolved - transitioned to long acting insulin - also SSI (5) Seizures Current Visit: Yes Status: Acute Plan to address problem: - no repeat seizures - prn Ativan - neurology evaluation ongoing (6) Acute renal failure Current Visit: No Status: Acute Qualifiers: Acute renal failure type: A Plan to address problem: - non oliguric - continue volume resuscitation - will give D5W @ 125mls/hr X 3 liters then back to 1/2 NS re: azotemia - replaced potassium - nephrology following - improving (7) Discharge planning issues Current Visit: No Status: Acute Plan to address problem: - transfer to medical floor Subjective Date of service: 11/07/16 Principal diagnosis: Acute Hypoxemic Respiratory Failure; DKA Interval history: Seen and examined at bedside; 24 hour events reviewed; nursing and respiratory care staff consulted; no adverse overnight events reported to me; doing much better; alert; tolerating oral meals Objective Vital Signs - 12hr 11/07/16 11/07/16 11/07/16 00:13 00:16 00:20 Temperature 98 F Pulse Rate 113 H 110 H Respiratory 22 Rate Blood Pressure 138/93 138/93 O2 Sat by Pulse 92 Oximetry 11/07/16 11/07/16 11/07/16 00:30 00:45 01:00 Temperature Pulse Rate 112 H 103 H 102 H Respiratory 28 H 12 20 Rate Blood Pressure 126/90 135/90 141/92 O2 Sat by Pulse 94 97 96 Oximetry 11/07/16 11/07/16 11/07/16 01:15 01:30 01:45 Temperature Pulse Rate 112 H 111 H 108 H Respiratory 16 17 30 H Rate Blood Pressure 117/74 122/86 112/77 O2 Sat by Pulse 100 98 98 Oximetry 11/07/16 11/07/16 11/07/16 02:00 02:15 02:30 Temperature Pulse Rate 111 H 120 H 111 H Respiratory 30 H 22 19 Rate Blood Pressure 113/80 124/85 120/80 O2 Sat by Pulse 100 98 99 Oximetry 11/07/16 11/07/16 11/07/16 02:45 03:00 03:15 Temperature Pulse Rate 111 H 127 H 118 H Respiratory 25 H 23 30 H Rate Blood Pressure 128/92 138/81 121/82 O2 Sat by Pulse 97 90 95 Oximetry 11/07/16 11/07/16 11/07/16 03:30 03:45 03:47 Temperature 98.9 F Pulse Rate 107 H 111 H Respiratory 24 21 Rate Blood Pressure 128/86 123/83 O2 Sat by Pulse 98 98 Oximetry 11/07/16 11/07/16 11/07/16 04:00 04:15 04:30 Temperature Pulse Rate 112 H 111 H 113 H Respiratory 26 H 24 22 Rate Blood Pressure 119/80 122/78 136/103 O2 Sat by Pulse 98 98 98 Oximetry 11/07/16 11/07/16 11/07/16 04:45 05:00 05:15 Temperature Pulse Rate 117 H 110 H 113 H Respiratory 19 21 24 Rate Blood Pressure 128/84 142/97 131/90 O2 Sat by Pulse 98 98 99 Oximetry 11/07/16 11/07/16 11/07/16 05:30 05:46 06:00 Temperature Pulse Rate 110 H 108 H 111 H Respiratory 17 26 H 26 H Rate Blood Pressure 131/90 131/90 131/90 O2 Sat by Pulse 99 98 96 Oximetry 11/07/16 11/07/16 11/07/16 06:16 06:30 06:45 Temperature Pulse Rate 110 H 133 H 113 H Respiratory 25 H 16 21 Rate Blood Pressure 131/90 131/90 130/91 O2 Sat by Pulse 96 97 94 Oximetry 11/07/16 11/07/16 11/07/16 06:51 07:00 07:16 Temperature Pulse Rate 111 H 114 H 119 H Respiratory 29 H 14 Rate Blood Pressure 122/78 130/91 110/67 O2 Sat by Pulse 95 96 Oximetry 11/07/16 11/07/16 11/07/16 07:30 07:46 08:00 Temperature 99.8 F H Pulse Rate 111 H 125 H 109 H Respiratory 25 H 19 21 Rate Blood Pressure 127/84 128/92 138/88 O2 Sat by Pulse 98 97 100 Oximetry 11/07/16 11/07/16 11/07/16 08:15 08:16 08:30 Temperature Pulse Rate 125 H 110 H Respiratory 16 28 H Rate Blood Pressure 138/88 138/88 O2 Sat by Pulse 98 99 99 Oximetry 11/07/16 11/07/16 11/07/16 08:46 09:00 09:15 Temperature Pulse Rate 114 H 109 H 106 H Respiratory 20 22 22 Rate Blood Pressure 127/91 119/89 129/101 O2 Sat by Pulse 98 98 Oximetry 11/07/16 11/07/16 11/07/16 09:30 09:45 10:00 Temperature Pulse Rate 108 H 109 H 111 H Respiratory 24 29 H 19 Rate Blood Pressure 145/100 135/91 135/91 O2 Sat by Pulse 98 99 Oximetry 11/07/16 11/07/16 11/07/16 10:15 10:30 10:45 Temperature Pulse Rate 107 H 107 H 112 H Respiratory 19 24 15 Rate Blood Pressure 127/87 139/88 149/84 O2 Sat by Pulse 100 99 100 Oximetry 11/07/16 11:00 Temperature Pulse Rate 110 H Respiratory 25 H Rate Blood Pressure 147/99 O2 Sat by Pulse 100 Oximetry Constitutional: no acute distress, alert Eyes: non-icteric ENT: oropharynx moist Neck: supple, no lymphadenopathy Effort: normal, mildly labored Ascultation: Bilateral: diminished breath sounds Cardiovascular: regular rate and rhythm Gastrointestinal: normoactive bowel sounds, soft, non-tender, non-distended Integumentary: normal Extremities: no cyanosis, no edema, pulses normal, no ischemia or petechiae Neurologic: normal mental status, non-focal exam (grossly), pupils equal and round, motor strength normal and Psychiatric: mood appropriate, affect normal CBC and BMP: 11/06/16 05:10 11/07/16 06:45 ABG, PT/INR, D-dimer: ABG POC ABG pH 7.411 (7.35-7.45) 11/06/16 12:21 POC ABG pCO2 28.1 (35-45) L 11/06/16 12:21 POC ABG pO2 78 (80-105) L 11/06/16 12:21 POC ABG HCO3 17.8 11/06/16 12:21 POC ABG Total CO2 19 11/06/16 12:21 POC ABG O2 Sat 96 11/06/16 12:21 PT/INR, D-dimer PT 17.3 Sec. (12.2-14.9) H 11/03/16 08:25 INR 1.42 (0.87-1.13) H 11/03/16 08:25 D-Dimer 2416.88 ng/mlDDU (0-234) H 11/03/16 08:25 Abnormal lab findings: Abnormal Labs 11/03/16 11/03/16 11/03/16 11:45 14:22 14:22 WBC RBC Hgb Hct RDW Lymph % (Auto) Seg Neutrophils % Seg Neutrophils # POC ABG pH POC ABG pCO2 POC ABG pO2 Sodium 152 H Potassium Chloride Carbon Dioxide 6 L* 11 L BUN 47 H 43 H Creatinine 3.0 H 2.8 H Glucose 1292 H* 977 H* POC Glucose Lactic Acid Calcium 7.8 L 7.6 L Phosphorus Total Creatine Kinase 168 H Troponin T 0.039 H C-Reactive Protein Urine Creatinine 11/03/16 11/03/16 11/03/16 14:23 15:13 16:15 WBC RBC Hgb Hct RDW Lymph % (Auto) Seg Neutrophils % Seg Neutrophils # POC ABG pH POC ABG pCO2 POC ABG pO2 Sodium 151 H Potassium 3.5 L Chloride Carbon Dioxide 12 L BUN 40 H Creatinine 2.6 H Glucose 656 H* POC Glucose > 500 H Lactic Acid 7.50 H* Calcium 7.2 L Phosphorus Total Creatine Kinase Troponin T C-Reactive Protein Urine Creatinine 11/03/16 11/03/16 11/03/16 18:06 18:36 19:06 WBC RBC Hgb Hct RDW Lymph % (Auto) Seg Neutrophils % Seg Neutrophils # POC ABG pH POC ABG pCO2 POC ABG pO2 Sodium Potassium Chloride Carbon Dioxide BUN Creatinine Glucose POC Glucose 418 H 330 H Lactic Acid Calcium Phosphorus Total Creatine Kinase Troponin T C-Reactive Protein Urine Creatinine 85.4 H 11/03/16 11/03/16 11/03/16 20:51 20:56 22:01 WBC RBC Hgb Hct RDW Lymph % (Auto) Seg Neutrophils % Seg Neutrophils # POC ABG pH POC ABG pCO2 POC ABG pO2 Sodium 157 H Potassium 3.4 L Chloride 116.1 H Carbon Dioxide 19 L D BUN 39 H Creatinine 2.6 H Glucose 165 H POC Glucose 178 H 110 H Lactic Acid Calcium 7.7 L Phosphorus Total Creatine Kinase Troponin T C-Reactive Protein Urine Creatinine 11/03/16 11/04/16 11/04/16 Unknown 00:17 00:30 WBC RBC Hgb Hct RDW Lymph % (Auto) Seg Neutrophils % Seg Neutrophils # POC ABG pH POC ABG pCO2 POC ABG pO2 Sodium 158 H Potassium 3.2 L Chloride 115.7 H Carbon Dioxide 19 L BUN 41 H Creatinine 2.9 H Glucose 118 H POC Glucose 186 H Lactic Acid 7.10 H* Calcium 7.5 L Phosphorus Total Creatine Kinase Troponin T C-Reactive Protein Urine Creatinine 11/04/16 11/04/16 11/04/16 01:15 02:04 03:18 WBC RBC Hgb Hct RDW Lymph % (Auto) Seg Neutrophils % Seg Neutrophils # POC ABG pH POC ABG pCO2 POC ABG pO2 Sodium Potassium Chloride Carbon Dioxide BUN Creatinine Glucose POC Glucose 171 H 113 H 115 H Lactic Acid Calcium Phosphorus Total Creatine Kinase Troponin T C-Reactive Protein Urine Creatinine 11/04/16 11/04/16 11/04/16 03:57 04:40 05:01 WBC RBC Hgb Hct RDW Lymph % (Auto) Seg Neutrophils % Seg Neutrophils # POC ABG pH POC ABG pCO2 POC ABG pO2 Sodium 161 H* Potassium 3.2 L Chloride 118.5 H Carbon Dioxide 19 L BUN 42 H Creatinine 3.0 H Glucose 102 H POC Glucose 112 H 115 H Lactic Acid Calcium 7.5 L Phosphorus Total Creatine Kinase Troponin T C-Reactive Protein Urine Creatinine 11/04/16 11/04/16 11/04/16 05:30 08:07 08:09 WBC RBC Hgb Hct RDW Lymph % (Auto) Seg Neutrophils % Seg Neutrophils # POC ABG pH 7.456 H POC ABG pCO2 27.9 L POC ABG pO2 144 H Sodium 163 H* Potassium Chloride Carbon Dioxide 19 L BUN 41 H Creatinine 3.1 H Glucose 113 H POC Glucose 124 H Lactic Acid Calcium 7.6 L Phosphorus Total Creatine Kinase Troponin T C-Reactive Protein Urine Creatinine 11/04/16 11/04/16 11/04/16 08:09 09:59 11:54 WBC RBC Hgb Hct RDW Lymph % (Auto) Seg Neutrophils % Seg Neutrophils # POC ABG pH POC ABG pCO2 POC ABG pO2 Sodium Potassium Chloride Carbon Dioxide BUN Creatinine Glucose POC Glucose 113 H Lactic Acid Calcium Phosphorus 2.40 L D Total Creatine Kinase Troponin T C-Reactive Protein Urine Creatinine 104.4 H 11/04/16 11/04/16 11/04/16 11:56 14:40 14:40 WBC RBC Hgb Hct RDW Lymph % (Auto) Seg Neutrophils % Seg Neutrophils # POC ABG pH POC ABG pCO2 POC ABG pO2 Sodium 164 H* 163 H* Potassium 3.0 L Chloride 123.0 H Carbon Dioxide BUN 38 H Creatinine 3.2 H 3.2 H Glucose 176 H POC Glucose 128 H Lactic Acid Calcium 7.3 L Phosphorus Total Creatine Kinase Troponin T C-Reactive Protein 3.60 H Urine Creatinine 11/04/16 11/04/16 11/04/16 14:47 15:51 18:02 WBC RBC Hgb Hct RDW Lymph % (Auto) Seg Neutrophils % Seg Neutrophils # POC ABG pH POC ABG pCO2 POC ABG pO2 Sodium Potassium Chloride Carbon Dioxide BUN Creatinine Glucose POC Glucose 198 H 139 H 177 H Lactic Acid Calcium Phosphorus Total Creatine Kinase Troponin T C-Reactive Protein Urine Creatinine 11/04/16 11/04/16 11/04/16 19:59 20:03 20:54 WBC RBC Hgb Hct RDW Lymph % (Auto) Seg Neutrophils % Seg Neutrophils # POC ABG pH POC ABG pCO2 33.5 L POC ABG pO2 157 H Sodium Potassium Chloride Carbon Dioxide BUN Creatinine Glucose POC Glucose 191 H 118 H Lactic Acid Calcium Phosphorus Total Creatine Kinase Troponin T C-Reactive Protein Urine Creatinine 11/04/16 11/04/16 11/05/16 23:10 23:56 00:59 WBC RBC Hgb Hct RDW Lymph % (Auto) Seg Neutrophils % Seg Neutrophils # POC ABG pH POC ABG pCO2 POC ABG pO2 Sodium Potassium Chloride Carbon Dioxide BUN Creatinine Glucose POC Glucose 185 H 280 H 167 H Lactic Acid Calcium Phosphorus Total Creatine Kinase Troponin T C-Reactive Protein Urine Creatinine 11/05/16 11/05/16 11/05/16 03:10 04:06 04:59 WBC RBC Hgb Hct RDW Lymph % (Auto) Seg Neutrophils % Seg Neutrophils # POC ABG pH POC ABG pCO2 POC ABG pO2 Sodium Potassium Chloride Carbon Dioxide BUN Creatinine Glucose POC Glucose 173 H 269 H 205 H Lactic Acid Calcium Phosphorus Total Creatine Kinase Troponin T C-Reactive Protein Urine Creatinine 11/05/16 11/05/16 11/05/16 05:10 06:05 07:40 WBC 12.8 H RBC 2.67 L Hgb 7.4 L Hct 23.8 L D RDW 20.8 H Lymph % (Auto) 13.0 L Seg Neutrophils % 81.3 H Seg Neutrophils # 10.4 H POC ABG pH POC ABG pCO2 POC ABG pO2 Sodium 161 H* Potassium 2.8 L* Chloride 123.2 H Carbon Dioxide 18 L BUN 31 H Creatinine 2.9 H Glucose POC Glucose 108 H Lactic Acid Calcium 7.0 L Phosphorus Total Creatine Kinase Troponin T C-Reactive Protein Urine Creatinine 11/05/16 11/05/16 11/05/16 10:07 10:09 11:11 WBC RBC Hgb Hct RDW Lymph % (Auto) Seg Neutrophils % Seg Neutrophils # POC ABG pH POC ABG pCO2 POC ABG pO2 Sodium Potassium Chloride Carbon Dioxide BUN Creatinine Glucose POC Glucose 335 H 317 H 284 H Lactic Acid Calcium Phosphorus Total Creatine Kinase Troponin T C-Reactive Protein Urine Creatinine 11/05/16 11/05/16 11/05/16 12:18 12:36 17:53 WBC RBC Hgb Hct RDW Lymph % (Auto) Seg Neutrophils % Seg Neutrophils # POC ABG pH POC ABG pCO2 26.8 L POC ABG pO2 169 H Sodium Potassium Chloride Carbon Dioxide BUN Creatinine Glucose POC Glucose 152 H 126 H Lactic Acid Calcium Phosphorus Total Creatine Kinase Troponin T C-Reactive Protein Urine Creatinine 11/06/16 11/06/16 11/06/16 01:05 05:04 05:10 WBC 14.0 H RBC 2.90 L Hgb 8.1 L Hct 24.9 L RDW 20.7 H Lymph % (Auto) Seg Neutrophils % 78.6 H Seg Neutrophils # 11.0 H POC ABG pH POC ABG pCO2 POC ABG pO2 Sodium Potassium Chloride Carbon Dioxide BUN Creatinine Glucose POC Glucose 363 H 241 H Lactic Acid Calcium Phosphorus Total Creatine Kinase Troponin T C-Reactive Protein Urine Creatinine 11/06/16 11/06/16 11/06/16 05:10 12:20 12:21 WBC RBC Hgb Hct RDW Lymph % (Auto) Seg Neutrophils % Seg Neutrophils # POC ABG pH POC ABG pCO2 28.1 L POC ABG pO2 78 L Sodium Potassium Chloride 110.0 H Carbon Dioxide 16 L BUN 28 H Creatinine 2.5 H Glucose 189 H POC Glucose 243 H Lactic Acid Calcium 7.0 L Phosphorus Total Creatine Kinase Troponin T C-Reactive Protein Urine Creatinine 11/06/16 11/07/16 11/07/16 17:09 06:45 06:45 WBC RBC Hgb Hct RDW Lymph % (Auto) Seg Neutrophils % Seg Neutrophils # POC ABG pH POC ABG pCO2 POC ABG pO2 Sodium Potassium Chloride Carbon Dioxide 18 L BUN 21 H Creatinine 1.8 H Glucose 133 H POC Glucose 61 L Lactic Acid Calcium 6.9 L Phosphorus 1.70 L Total Creatine Kinase Troponin T C-Reactive Protein Urine Creatinine
[2016-11-07] MEDS: LEVAQUIN 500MG/100ML 500 MG/100 ML BAG IV SCH (12:18)
[2016-11-07] MEDS: LEVEMIR SUB-Q SCH (12:19)
[2016-11-07] MEDS: PHOS-NAK PO SCH ×2 (14:12→21:46)
[2016-11-07] MEDS: TYLENOL PO PRN (21:45)
[2016-11-07] MEDS: D50W (25GM) IV PRN (21:52)
[2016-11-08] MEDS: PHOS-NAK PO SCH ×3 (05:47→21:55)
[2016-11-08] MEDS: D50W (25GM) IV PRN (06:50)
[2016-11-08] MEDS: NOVOLOG SUB-Q SCH ×4 (08:56→21:49)
--- NOTE | 2016-11-08 11:30 | Progress Note ---
Assessment and Plan Impression * Acute renal failure. Most likely prerenal. May have progressed to ATN. Her baseline creatinine seems to be approximately 1-1.2. She is currently nonoliguric * DKA * Sepsis * Respiratory failure * Hypernatremia Recommendations * Patient's creatinine has been improving slowly. Need to recheck her chemistries today. She is currently nonoliguric. * Her acidosis has been improving as well * Continue IV hydration * Monitor electrolytes. * Her phosphorus level was low at 1.7. Continue supplemental * Continue empiric IV antibiotics * Her renal ultrasound was essentially normal. Fractional excretion of sodium is 0.9% * Monitor fluid status and electrolytes closely Subjective Date of service: 11/08/16 Principal diagnosis: Acute Hypoxemic Respiratory Failure; DKA Interval history: Patient has been transferred out of ICU. She denies any shortness of breath. No nausea or vomiting. She however does complain of some diarrhea Objective - Vital Signs Vital signs: Vital Signs - 12hr 11/08/16 11/08/16 01:00 08:47 Temperature 98.3 F 97.3 F L Pulse Rate [ 112 H 102 H Right Radial] Respiratory 22 20 Rate Blood Pressure 126/89 152/92 [Right Arm] O2 Sat by Pulse 100 100 Oximetry - General Appearance General appearance: well-developed, well-nourished, appears stated age EENT: PERRL, mucous membranes moist Neck: no JVD Respiratory: Present: Clear to Ascultation Cardiology: regular, normal heart rate, S1S2, no murmurs Gastrointestinal: normal, normoactive bowel sounds - Lab 11/06/16 05:10 11/07/16 06:45 Most recent lab results Calcium 6.9 mg/dL (8.4-10.2) L 11/07/16 06:45 Phosphorus 1.70 mg/dL (2.5-4.5) L 11/07/16 06:45 Magnesium 2.00 mg/dL (1.7-2.3) 11/04/16 08:09 Urine Creatinine 104.4 mg/dL (0.1-20.0) H 11/04/16 11:54 Urine Sodium 77 mEq/L 11/04/16 11:54
--- NOTE | 2016-11-08 11:54 | Progress Note ---
Assessment and Plan Assessment: Subarachnoid Hemorrhage Brain MRI: subacute SAH right Frontal lobe Neurology following Acute respiratory failure/B/L Pneumonia on antibiotics All Cultures negative to date Transient ST segment elevations resolved Walter negative for AMI Continue ASA Consider ischemic evaluation as either outpatient or inpatient Sinus tachycardia monitor improving Cardiomyopathy EF 40 - 45% continue low dose metoprolol No PEDRO given ARF DKA/hyperkalemia/Diabetes HTN Noncompliance Anemia Subjective Date of service: 11/08/16 Principal diagnosis: Acute Hypoxemic Respiratory Failure; DKA Interval history: Pt sleeping in bed without any complaints Objective Vital Signs Temp Pulse Pulse Resp BP BP Pulse Ox 11/08/16 08:47 97.3 F L 102 H 20 152/92 100 11/08/16 01:00 98.3 F 112 H 22 126/89 100 11/07/16 22:09 98 11/07/16 20:00 98.3 F 112 H 22 142/92 99 11/07/16 16:00 98.3 F 11/07/16 13:16 141/98 98 11/07/16 13:00 141/98 100 11/07/16 12:46 141/98 100 11/07/16 12:30 150/105 99 11/07/16 12:21 105 H 141/98 11/07/16 12:15 150/105 100 11/07/16 12:00 98.0 F 141/98 100 - Physical Examination General: Other (intubated) HEENT: Positive: PERRL, Normocephaly, Mucus Membranes Moist Neck: Positive: neck supple, trachea midline Cardiac: Positive: Regular Rhythm, Tachycardia Lungs: Positive: Normal Exam, clear to auscultation Neuro: Positive: Grossly Intact Abdomen: Positive: Soft, Active Bowel Sounds Skin: Positive: Clear. Negative: Rash, Wound Musculoskeletal: No Fluid Collection, No Pain, Normal Range of Motion Extremities: Present: upper extr. pulses, lower extr. pulses. Absent: edema - Imaging and Cardiology EKG: report reviewed, image reviewed Echo: report reviewed (ECHO 11/03/16: EF 40-45%, RVSP 52mmHg) - EKG Sinus rhythms and dysrhythmias: sinus tachycardia
[2016-11-08] MEDS ORDERED: LOPRESSOR PO SCH (12:00)
[2016-11-08] MEDS: PEPCID IV SCH (12:02)
[2016-11-08] MEDS: LEVEMIR SUB-Q SCH ×2 (12:04→12:11)
[2016-11-08] MEDS: NACL 0.45% 1000 ML 1,000 ML IV SCH (12:12)
--- NOTE | 2016-11-08 13:16 | Discharge Summary ---
Providers - Providers Date of Admission: 11/03/16 11:44 Date of discharge: 11/08/16 Attending physician: NICK MANTILLA 11/03/16 13:39 Consult to Physician [CONS] Routine Consulting Provider: MITALI SIDDIQUI Reason For Exam: hyperkalemia, renal insufficiency Place consult to:: nephrology Notified:: y Was contact made?: Yes If yes, spoke with:: Dr Siddiqui Time called:: 09:30 11/03/16 18:49 Consult to Wound/ET Nurse [CONS] Routine Reason For Exam: wound eval and treat on upper back 11/05/16 11:54 Consult to Dietitian/Nutrition [CONS] Routine Physician Instructions: Reason For Exam: Reason for Consult: Write/Manage Tube Feeding 11/08/16 12:56 Consult to Physician [CONS] Routine Reason For Exam: subacute SAH Consulting Provider: FRANSISCO DWOELL Phone number called:: cell Was contact made?: No Time called:: 12:57 Primary care physician: HOOP RIVETER Hospitalization Condition: Good Pertinent studies: Ultrasound bilateral lower extremities negative for DVT. CT scan of head initially show possible tiny subarachnoid hemorrhage. This was confirmed by MRI that showed subarachnoid hemorrhage in the right frontal lobe. Small. Subacute. Echocardiogram ejection fraction 45% normal LVH. MRA negative. Chest x-rays were negative throughout hospital stay. Hospital course: Patient 46-year-old female that presented with sepsis of unspecified in his him. Workup for infection was essentially negative with blood cultures. Patient was admitted for acute respiratory failure requiring intubation. Patient defervesced well was able to be extubated and weaned off oxygen and treat with broncho-dilators. Patient also had episode of encephalopathy which resolved. MRI of the brain was obtained which showed subacute subarachnoid hemorrhage. Patient however is alert oriented 3 nonfocal no headache no nausea vomiting no difficulty walking. Patient can walk to the bathroom down the barraza without difficulty. Without any problems with gait. No focal neurologic deficits. Can follow as an outpatient. Patient also DKA Hospital course complicated by DKA which is placed on insulin visit drip this now has resolved and patient is back on her outpatient insulin. She is also off anabiotic's for septic shock. An acute renal failure was thought to be prerenal azotemia and has resolved. Disposition: DC/TX HOME UNDER HOME HEALTH - Discharge Diagnoses (1) Acute respiratory failure with hypoxemia Status: Acute Comment: Secondary to sepsis and DKA has resolved. Exact etiology organism undocumented. (2) Altered mental status Status: Acute Qualifiers: Altered mental status type: unspecified Coma depth: C Coma timing: C Qualified Code(s): R41.82 - Altered mental status, unspecified Comment: Altered mental status was secondary to CVA. Patient had negative MRI MRA showed subacute subarachnoid hemorrhage. Thought to be from previous fall. Stable blood pressure stable no focal deficits alert oriented 3 no nausea vomiting. Are a negative as well. She is back to baseline. (3) DKA (diabetic ketoacidoses) Status: Acute Qualifiers: Diabetes mellitus type: type 1 Diabetes mellitus complication detail: with coma Diabetes mellitus chcf insulin use: D Qualified Code(s): E10.11 - Type 1 diabetes mellitus with ketoacidosis with coma Comment: Patient DKA has resolved with insulin drip. Metabolic acidosis is resolved as well. His back on Levemir 15 units daily at bedtime. (4) Hyperkalemia Status: Resolved (5) Hypokalemia Status: Resolved (6) Respiratory failure Status: Resolved Qualifiers: Chronicity: acute Respiratory failure complication: unspecified whether with hypoxia or hypercapnia Qualified Code(s): J96.00 - Acute respiratory failure, unspecified whether with hypoxia or hypercapnia (7) Septic shock Status: Resolved (8) Acute renal failure Status: Acute Qualifiers: Acute renal failure type: A Comment: He shouldn't acute renal failure is also resolved. Baseline creatinine approximately 1.8. Has some chronic kidney disease as well will follow-up with nephrology as outpatient. We'll follow-up primary care physician in 3-5 days. (9) Subarachnoid hemorrhage Status: Acute Comment: Secondary to trauma patient down in the field. Has had no meningeal signs, patient alert and oriented 3. Patient is able to walk down the barraza without any difficulty. Patient has no ataxia no nystagmus. Blood pressure has optimal control. No nausea vomiting no vision changes. MRA was negative as well. Patient is been without symptoms for 48 hours. We'll repeat scan to ascertain stability and if so may discharge home. CT scan shows resolution of subarachnoid hemorrhage repeat CT scan. No aspirin until follow blood with neurology. Dr. Lupillo Kong. Core Measure Documentation - Palliative Care Palliative Care/ Comfort Measures: Not Applicable - Core Measures Any of the following diagnoses?: none Exam - Constitutional Vitals: Temp Pulse Resp BP Pulse Ox 97.3 F L 102 H 20 152/92 100 11/08/16 08:47 11/08/16 08:47 11/08/16 08:47 11/08/16 08:47 11/08/16 08:47 General appearance: Present: no acute distress, well-nourished - EENT ENT: hearing intact, clear oral mucosa - Neck Neck: Present: supple, normal ROM - Respiratory Respiratory effort: normal Respiratory: bilateral: CTA - Cardiovascular Heart Sounds: Present: S1 & S2. Absent: rub, click - Extremities Extremities: pulses symmetrical, No edema Peripheral Pulses: within normal limits - Abdominal General gastrointestinal: Present: soft, non-tender, non-distended, normal bowel sounds - Musculoskeletal Musculoskeletal: gait normal, strength equal bilaterally - Psychiatric Psychiatric: appropriate mood/affect, intact judgment & insight - Neurologic Neurologic: CNII-XII intact, moves all extremities Plan Activity: fall precautions Weight Bearing Status: Full Weight Bearing Diet: diabetic Special Instructions: physical therapy, home health RN Follow up with: PRIMARY CARE, [Primary Care Provider] - 3-5 Days LUPILLO KONG MD [Staff Physician] - 7 Days FREDERICK WALTER MD [Staff Physician] - 7 Days MITALI SIDDIQUI MD [Staff Physician] - 7 Days Prescriptions: Calcium Carbonate [Oscal] 1,250 mg PO BID #60 tablet Insulin NPH/Regular [NovoLIN 70/30] 10 unit SUB-Q BIDDIAB 30 Days Metoprolol [Lopressor TAB] 12.5 mg PO BID #60 tablet Metoprolol [Lopressor TAB] 25 mg PO BID #60 tablet Pantoprazole [Protonix TAB] 40 mg PO QDAY #30 tablet
[2016-11-08 15:05] LABS: BUN/Creatinine Ratio 12.85; Calcium 7.1 mg/dL (8.4-10.2); Chloride 103.7 mmol/L (98-107); Potassium 3.9 mmol/L (3.6-5.0)
--- NOTE | 2016-11-08 16:44 | Cat Scan Report ---
FINAL REPORT PROCEDURE: CT HEAD/BRAIN WO CON TECHNIQUE: Computerized tomography of the head was performed without contrast material. HISTORY: reevaluation of SAH COMPARISON: 11/04/2016 FINDINGS: The subtle increased areas of attenuation in the subarachnoid spaces along the right frontal and parietal lobes are less pronounced on today's study. Findings consistent with resolving subarachnoid hemorrhage this region. No midline displacement or mass effect. No other evidence of acute hemorrhage or hematoma. The ventricles are normal. The mastoid air cells and paranasal sinuses are normal. The cerebellum and brainstem are normal. IMPRESSION: Resolving subarachnoid hemorrhage of the right frontal and parietal lobes as compared prior study. No mass effect, edema or other evidence of acute hemorrhage is noted.
[2016-11-08] MEDS: TYLENOL PO PRN (20:35)
[2016-11-08] MEDS: LOPRESSOR PO SCH (21:53)
[2016-11-09] MEDS: PHOS-NAK PO SCH (05:44)
--- NOTE | 2016-11-09 06:43 | Event Note ---
Date: 11/09/16 Patient did not go home awaiting CT of head for resolution of subarachnoid hemorrhage.
[2016-11-09 08:11] LABS: BUN/Creatinine Ratio 11.66; Chloride 106.4 mmol/L (98-107); Phosphorous 3.2 mg/dL (2.5-4.5); Potassium 3.7 mmol/L (3.6-5.0)
[2016-11-09] MEDS: NOVOLOG SUB-Q SCH ×3 (09:00→16:55)
[2016-11-09] MEDS: LOPRESSOR PO SCH (09:04)
--- NOTE | 2016-11-09 09:48 | Progress Note ---
Assessment and Plan Assessment: Transient ST segment elevations - resolved; Walter negative for AMI. DKA / hyperkalemia - resolved. Acute respiratory failure - s/p intubation. Sinus tachycardia - improved. Hypotension / septic shock / lactic acidosis - improved. CMP - EF 40 - 45%. ARF - improved. HTN DM Hypocalcemia Noncompliance Marijuana use Anemia Plan: Currently stable cardiac status. Cont current cardiac regimen. No ACEI/ARB at this time in setting of ARF. No ASA at this time in setting of subarachnoid hemorrhage; avoid all blood thinners per neurology. Awaiting repeat head CT today. Pt may discharge home from cardiology standpoint. Consider ischemic evaluation as OP and once cleared by neurology to initiate ASA/DAPT if indicated. Follow up in our [place] office with Jessie Estes NP, on 11/24/2016 @ 9:30AM. The patient has been seen in conjunction with Dr. Pelletier who agrees with the assessment and plan of care. Subjective Date of service: 11/09/16 Principal diagnosis: Acute Hypoxemic Respiratory Failure; DKA Interval history: Pt A&O, no complaints. VSS. States she is ready to go home. Objective Last Vital Signs Temp 98.1 F 11/09/16 08:05 Pulse 94 H 11/09/16 09:04 Resp 20 11/09/16 08:05 BP 141/77 11/09/16 09:04 Pulse Ox 100 11/08/16 23:00 - Physical Examination General: No Apparent Distress HEENT: Positive: PERRL, Normocephaly, Mucus Membranes Moist Neck: Positive: neck supple, trachea midline Cardiac: Positive: S1/S2 Lungs: Positive: clear to auscultation Neuro: Positive: Grossly Intact, Cranial Nerve 2-12 Intact Abdomen: Positive: Soft, Active Bowel Sounds Skin: Positive: Clear. Negative: Rash, Wound Musculoskeletal: No Fluid Collection, No Pain, Normal Range of Motion Extremities: Present: upper extr. pulses, lower extr. pulses. Absent: edema - Labs and Meds Comprehensive Metabolic Panel 11/08/16 11/09/16 Range/Units 14:35 06:50 Sodium 140 140 (137-145) mmol/L Potassium 3.9 3.7 (3.6-5.0) mmol/L Chloride 103.7 106.4 (98-107) mmol/L Carbon Dioxide 17 L 19 L (22-30) mmol/L BUN 18 H 14 (7-17) mg/dL Creatinine 1.4 H 1.2 (0.7-1.2) mg/dL Glucose 174 H 250 H (65-100) mg/dL Calcium 7.1 L 7.0 L (8.4-10.2) mg/dL - Imaging and Cardiology EKG: report reviewed, image reviewed Echo: report reviewed (ECHO 11/03/16: EF 40-45%, RVSP 52mmHg) - Telemetry EKG Rhythm: Sinus Rhythm
--- NOTE | 2016-11-09 09:54 | Progress Note ---
Assessment and Plan Impression * Acute renal failure. Most likely prerenal. Her baseline creatinine seems to be approximately 1-1.2. She is currently nonoliguric * DKA * Sepsis * Respiratory failure * Hypernatremia Recommendations * Patient's creatinine has been improving, currently 1.2 and at basline * Her acidosis has been improving as well * Continue IV hydration * Monitor electrolytes. * Continue empiric IV antibiotics * Her renal ultrasound was essentially normal. Fractional excretion of sodium is 0.9% * Monitor fluid status and electrolytes closely * will sign off, see prn, stable for dc from renal standpoint Subjective Date of service: 11/09/16 Principal diagnosis: Acute Hypoxemic Respiratory Failure; DKA Interval history: resting well in bed Objective - Exam Narrative Exam: General appearance: well-developed, well-nourished, appears stated age EENT: PERRL, mucous membranes moist Neck: no JVD Respiratory: Present: Clear to Ascultation Cardiology: regular, normal heart rate, S1S2, no murmurs Gastrointestinal: normal, normoactive bowel sounds - Vital Signs Vital signs: Vital Signs - 12hr 11/08/16 11/09/16 11/09/16 23:00 08:05 09:04 Temperature 99.2 F 98.1 F Pulse Rate 94 H Pulse Rate [ 110 H 104 H Right Radial] Respiratory 20 20 Rate Blood Pressure 141/77 Blood Pressure 136/96 137/83 [Right Arm] O2 Sat by Pulse 100 Oximetry - Lab 11/06/16 05:10 11/09/16 06:50 Most recent lab results Calcium 7.0 mg/dL (8.4-10.2) L 11/09/16 06:50 Phosphorus 3.20 mg/dL (2.5-4.5) 11/09/16 06:50 Magnesium 2.00 mg/dL (1.7-2.3) 11/04/16 08:09 Urine Creatinine 104.4 mg/dL (0.1-20.0) H 11/04/16 11:54 Urine Sodium 77 mEq/L 11/04/16 11:54
[2016-11-09] MEDS ORDERED: PEPCID PO SCH (10:00)
--- NOTE | 2016-11-09 10:28 | Progress Note ---
Assessment and Plan 46 YO F Hx DM, HTN, Malnutrition, GERD, Medication Noncompliance presents to ED for evaluation 11/03 after being found down. Upon arrival she was found to be in DKA, acute respiratory failure, and Septic Shock s/p intubation. She denies RODRIGUEZ/N /V/fever or neck stiffness by nodding no. CTH 11/04 reveals R frontoparietal small areas of SAH confirmed on MRI Brain. MRA Head neg for vascular lesion. f/ u CTHs 11/08 show improving/evolving SAH w/o expansion. There is no midline shift/ mass effect/cerebral edema. Neuro exam alert, oriented, follows all commands and symmetric intact motor sensory exam w/o deficits and no meningeal signs/sx. Pt denies fall but considering clinical Hx as she was found down I suspect traumatic SAH. Recs: 1. Neuro checks 2. Avoid all blood thinners 3. BP control: goal < 140/90 using prn Labetalol/Hydralyzine/Nicardipine. Cont home BP med. 4. F/E/N: isotonic fluids @ 80 cc/hr, prn replete, bedside speech/swallow eval prior to PO intake 5. DVT Prophylaxis: SCDs/TEDs 6. Dispo: PT/OT/CM evaluations Subjective Date of service: 11/09/16 Principal diagnosis: Acute Hypoxemic Respiratory Failure; DKA, traumatic SAH Interval history: no complaints. wants to go home. Objective - Vital Sign Vital Signs - 12hr 11/08/16 11/09/16 11/09/16 23:00 08:05 09:04 Temperature 99.2 F 98.1 F Pulse Rate 94 H Pulse Rate [ 110 H 104 H Right Radial] Respiratory 20 20 Rate Blood Pressure 141/77 Blood Pressure 136/96 137/83 [Right Arm] O2 Sat by Pulse 100 Oximetry - General Apperance Constitutional: comfortable - EENT EENT: ATNC, PERRL, mucous membranes moist, hearing intact, vision intact - Respiratory Respiratory: chest non-tender, normal breath sounds, no respiratory distress - Cardiovascular Cardiovascular: regular rate Extremities: no peripheral edema bilat, no clubbing, cyanosis, no inflammation, no ischemia or petechiae - Gastrointestinal Gastrointestinal: normoactive bowel sounds, soft, non-distended - Integumentary Integumentary: normal - Neurologic Cranial nerve examination: PERRL, EOMI, VFF, V1/V2/V3 grossly intact, face symmetric, tongue midline, intact, Intact Vestibulo-ocular r, intact corneal reflex, normal palatal elevation Speech examination: intact Detailed motor examination: full strength in all priscila Motor examination - right side: 10/09: biceps, triceps, wrist flexion, wrist extension, multiple drum sander helper, hip flexors, knee extensors, dorsiflexion, toe extension (EHL) , plantarflexion Motor examination - left side: 10/09: biceps, triceps, wrist flexion, wrist extension, multiple drum sander helper, hip flexors, knee extensors, dorsiflexion, toe extension (EHL) , plantarflexion Detailed sensory examination: intact, light touch, temperature - Musculoskeletal Musculoskeletal: no fluid collection, no pain, normal range of motion - Psychiatric Psychiatric: mood/affect appropriate, cooperative - Laboratory Findings CBC and BMP: 11/06/16 05:10 11/09/16 06:50 Abnormal Lab Findings: Abnormal Labs 11/03/16 11/03/16 11/03/16 11:45 14:22 14:22 WBC RBC Hgb Hct RDW Lymph % (Auto) Seg Neutrophils % Seg Neutrophils # POC ABG pH POC ABG pCO2 POC ABG pO2 Sodium 152 H Potassium Chloride Carbon Dioxide 6 L* 11 L BUN 47 H 43 H Creatinine 3.0 H 2.8 H Glucose 1292 H* 977 H* POC Glucose Lactic Acid Calcium 7.8 L 7.6 L Phosphorus Total Creatine Kinase 168 H Troponin T 0.039 H C-Reactive Protein Urine Creatinine 11/03/16 11/03/16 11/03/16 14:23 15:13 16:15 WBC RBC Hgb Hct RDW Lymph % (Auto) Seg Neutrophils % Seg Neutrophils # POC ABG pH POC ABG pCO2 POC ABG pO2 Sodium 151 H Potassium 3.5 L Chloride Carbon Dioxide 12 L BUN 40 H Creatinine 2.6 H Glucose 656 H* POC Glucose > 500 H Lactic Acid 7.50 H* Calcium 7.2 L Phosphorus Total Creatine Kinase Troponin T C-Reactive Protein Urine Creatinine 11/03/16 11/03/16 11/03/16 18:06 18:36 19:06 WBC RBC Hgb Hct RDW Lymph % (Auto) Seg Neutrophils % Seg Neutrophils # POC ABG pH POC ABG pCO2 POC ABG pO2 Sodium Potassium Chloride Carbon Dioxide BUN Creatinine Glucose POC Glucose 418 H 330 H Lactic Acid Calcium Phosphorus Total Creatine Kinase Troponin T C-Reactive Protein Urine Creatinine 85.4 H 11/03/16 11/03/16 11/03/16 20:51 20:56 22:01 WBC RBC Hgb Hct RDW Lymph % (Auto) Seg Neutrophils % Seg Neutrophils # POC ABG pH POC ABG pCO2 POC ABG pO2 Sodium 157 H Potassium 3.4 L Chloride 116.1 H Carbon Dioxide 19 L D BUN 39 H Creatinine 2.6 H Glucose 165 H POC Glucose 178 H 110 H Lactic Acid Calcium 7.7 L Phosphorus Total Creatine Kinase Troponin T C-Reactive Protein Urine Creatinine 11/03/16 11/04/16 11/04/16 Unknown 00:17 00:30 WBC RBC Hgb Hct RDW Lymph % (Auto) Seg Neutrophils % Seg Neutrophils # POC ABG pH POC ABG pCO2 POC ABG pO2 Sodium 158 H Potassium 3.2 L Chloride 115.7 H Carbon Dioxide 19 L BUN 41 H Creatinine 2.9 H Glucose 118 H POC Glucose 186 H Lactic Acid 7.10 H* Calcium 7.5 L Phosphorus Total Creatine Kinase Troponin T C-Reactive Protein Urine Creatinine 11/04/16 11/04/16 11/04/16 01:15 02:04 03:18 WBC RBC Hgb Hct RDW Lymph % (Auto) Seg Neutrophils % Seg Neutrophils # POC ABG pH POC ABG pCO2 POC ABG pO2 Sodium Potassium Chloride Carbon Dioxide BUN Creatinine Glucose POC Glucose 171 H 113 H 115 H Lactic Acid Calcium Phosphorus Total Creatine Kinase Troponin T C-Reactive Protein Urine Creatinine 11/04/16 11/04/16 11/04/16 03:57 04:40 05:01 WBC RBC Hgb Hct RDW Lymph % (Auto) Seg Neutrophils % Seg Neutrophils # POC ABG pH POC ABG pCO2 POC ABG pO2 Sodium 161 H* Potassium 3.2 L Chloride 118.5 H Carbon Dioxide 19 L BUN 42 H Creatinine 3.0 H Glucose 102 H POC Glucose 112 H 115 H Lactic Acid Calcium 7.5 L Phosphorus Total Creatine Kinase Troponin T C-Reactive Protein Urine Creatinine 11/04/16 11/04/16 11/04/16 05:30 08:07 08:09 WBC RBC Hgb Hct RDW Lymph % (Auto) Seg Neutrophils % Seg Neutrophils # POC ABG pH 7.456 H POC ABG pCO2 27.9 L POC ABG pO2 144 H Sodium 163 H* Potassium Chloride Carbon Dioxide 19 L BUN 41 H Creatinine 3.1 H Glucose 113 H POC Glucose 124 H Lactic Acid Calcium 7.6 L Phosphorus Total Creatine Kinase Troponin T C-Reactive Protein Urine Creatinine 11/04/16 11/04/16 11/04/16 08:09 09:59 11:54 WBC RBC Hgb Hct RDW Lymph % (Auto) Seg Neutrophils % Seg Neutrophils # POC ABG pH POC ABG pCO2 POC ABG pO2 Sodium Potassium Chloride Carbon Dioxide BUN Creatinine Glucose POC Glucose 113 H Lactic Acid Calcium Phosphorus 2.40 L D Total Creatine Kinase Troponin T C-Reactive Protein Urine Creatinine 104.4 H 11/04/16 11/04/16 11/04/16 11:56 14:40 14:40 WBC RBC Hgb Hct RDW Lymph % (Auto) Seg Neutrophils % Seg Neutrophils # POC ABG pH POC ABG pCO2 POC ABG pO2 Sodium 164 H* 163 H* Potassium 3.0 L Chloride 123.0 H Carbon Dioxide BUN 38 H Creatinine 3.2 H 3.2 H Glucose 176 H POC Glucose 128 H Lactic Acid Calcium 7.3 L Phosphorus Total Creatine Kinase Troponin T C-Reactive Protein 3.60 H Urine Creatinine 11/04/16 11/04/16 11/04/16 14:47 15:51 18:02 WBC RBC Hgb Hct RDW Lymph % (Auto) Seg Neutrophils % Seg Neutrophils # POC ABG pH POC ABG pCO2 POC ABG pO2 Sodium Potassium Chloride Carbon Dioxide BUN Creatinine Glucose POC Glucose 198 H 139 H 177 H Lactic Acid Calcium Phosphorus Total Creatine Kinase Troponin T C-Reactive Protein Urine Creatinine 11/04/16 11/04/16 11/04/16 19:59 20:03 20:54 WBC RBC Hgb Hct RDW Lymph % (Auto) Seg Neutrophils % Seg Neutrophils # POC ABG pH POC ABG pCO2 33.5 L POC ABG pO2 157 H Sodium Potassium Chloride Carbon Dioxide BUN Creatinine Glucose POC Glucose 191 H 118 H Lactic Acid Calcium Phosphorus Total Creatine Kinase Troponin T C-Reactive Protein Urine Creatinine 11/04/16 11/04/16 11/05/16 23:10 23:56 00:59 WBC RBC Hgb Hct RDW Lymph % (Auto) Seg Neutrophils % Seg Neutrophils # POC ABG pH POC ABG pCO2 POC ABG pO2 Sodium Potassium Chloride Carbon Dioxide BUN Creatinine Glucose POC Glucose 185 H 280 H 167 H Lactic Acid Calcium Phosphorus Total Creatine Kinase Troponin T C-Reactive Protein Urine Creatinine 11/05/16 11/05/16 11/05/16 03:10 04:06 04:59 WBC RBC Hgb Hct RDW Lymph % (Auto) Seg Neutrophils % Seg Neutrophils # POC ABG pH POC ABG pCO2 POC ABG pO2 Sodium Potassium Chloride Carbon Dioxide BUN Creatinine Glucose POC Glucose 173 H 269 H 205 H Lactic Acid Calcium Phosphorus Total Creatine Kinase Troponin T C-Reactive Protein Urine Creatinine 11/05/16 11/05/16 11/05/16 05:10 06:05 07:40 WBC 12.8 H RBC 2.67 L Hgb 7.4 L Hct 23.8 L D RDW 20.8 H Lymph % (Auto) 13.0 L Seg Neutrophils % 81.3 H Seg Neutrophils # 10.4 H POC ABG pH POC ABG pCO2 POC ABG pO2 Sodium 161 H* Potassium 2.8 L* Chloride 123.2 H Carbon Dioxide 18 L BUN 31 H Creatinine 2.9 H Glucose POC Glucose 108 H Lactic Acid Calcium 7.0 L Phosphorus Total Creatine Kinase Troponin T C-Reactive Protein Urine Creatinine 11/05/16 11/05/16 11/05/16 10:07 10:09 11:11 WBC RBC Hgb Hct RDW Lymph % (Auto) Seg Neutrophils % Seg Neutrophils # POC ABG pH POC ABG pCO2 POC ABG pO2 Sodium Potassium Chloride Carbon Dioxide BUN Creatinine Glucose POC Glucose 335 H 317 H 284 H Lactic Acid Calcium Phosphorus Total Creatine Kinase Troponin T C-Reactive Protein Urine Creatinine 11/05/16 11/05/16 11/05/16 12:18 12:36 17:53 WBC RBC Hgb Hct RDW Lymph % (Auto) Seg Neutrophils % Seg Neutrophils # POC ABG pH POC ABG pCO2 26.8 L POC ABG pO2 169 H Sodium Potassium Chloride Carbon Dioxide BUN Creatinine Glucose POC Glucose 152 H 126 H Lactic Acid Calcium Phosphorus Total Creatine Kinase Troponin T C-Reactive Protein Urine Creatinine 11/06/16 11/06/16 11/06/16 01:05 05:04 05:10 WBC 14.0 H RBC 2.90 L Hgb 8.1 L Hct 24.9 L RDW 20.7 H Lymph % (Auto) Seg Neutrophils % 78.6 H Seg Neutrophils # 11.0 H POC ABG pH POC ABG pCO2 POC ABG pO2 Sodium Potassium Chloride Carbon Dioxide BUN Creatinine Glucose POC Glucose 363 H 241 H Lactic Acid Calcium Phosphorus Total Creatine Kinase Troponin T C-Reactive Protein Urine Creatinine 11/06/16 11/06/16 11/06/16 05:10 12:20 12:21 WBC RBC Hgb Hct RDW Lymph % (Auto) Seg Neutrophils % Seg Neutrophils # POC ABG pH POC ABG pCO2 28.1 L POC ABG pO2 78 L Sodium Potassium Chloride 110.0 H Carbon Dioxide 16 L BUN 28 H Creatinine 2.5 H Glucose 189 H POC Glucose 243 H Lactic Acid Calcium 7.0 L Phosphorus Total Creatine Kinase Troponin T C-Reactive Protein Urine Creatinine 11/06/16 11/07/16 11/07/16 17:09 06:45 06:45 WBC RBC Hgb Hct RDW Lymph % (Auto) Seg Neutrophils % Seg Neutrophils # POC ABG pH POC ABG pCO2 POC ABG pO2 Sodium Potassium Chloride Carbon Dioxide 18 L BUN 21 H Creatinine 1.8 H Glucose 133 H POC Glucose 61 L Lactic Acid Calcium 6.9 L Phosphorus 1.70 L Total Creatine Kinase Troponin T C-Reactive Protein Urine Creatinine 11/07/16 11/07/16 11/07/16 11:46 16:15 21:31 WBC RBC Hgb Hct RDW Lymph % (Auto) Seg Neutrophils % Seg Neutrophils # POC ABG pH POC ABG pCO2 POC ABG pO2 Sodium Potassium Chloride Carbon Dioxide BUN Creatinine Glucose POC Glucose 340 H 261 H 50 L Lactic Acid Calcium Phosphorus Total Creatine Kinase Troponin T C-Reactive Protein Urine Creatinine 11/07/16 11/08/16 11/08/16 23:04 06:40 07:27 WBC RBC Hgb Hct RDW Lymph % (Auto) Seg Neutrophils % Seg Neutrophils # POC ABG pH POC ABG pCO2 POC ABG pO2 Sodium Potassium Chloride Carbon Dioxide BUN Creatinine Glucose POC Glucose 107 H < 40 L 193 H Lactic Acid Calcium Phosphorus Total Creatine Kinase Troponin T C-Reactive Protein Urine Creatinine 11/08/16 11/08/16 11/08/16 12:02 14:35 15:39 WBC RBC Hgb Hct RDW Lymph % (Auto) Seg Neutrophils % Seg Neutrophils # POC ABG pH POC ABG pCO2 POC ABG pO2 Sodium Potassium Chloride Carbon Dioxide 17 L BUN 18 H Creatinine 1.4 H Glucose 174 H POC Glucose 356 H 128 H Lactic Acid Calcium 7.1 L Phosphorus Total Creatine Kinase Troponin T C-Reactive Protein Urine Creatinine 11/08/16 11/09/16 11/09/16 21:02 06:12 06:50 WBC RBC Hgb Hct RDW Lymph % (Auto) Seg Neutrophils % Seg Neutrophils # POC ABG pH POC ABG pCO2 POC ABG pO2 Sodium Potassium Chloride Carbon Dioxide 19 L BUN Creatinine Glucose 250 H POC Glucose 57 L 230 H Lactic Acid Calcium 7.0 L Phosphorus Total Creatine Kinase Troponin T C-Reactive Protein Urine Creatinine
[2016-11-09] MEDS: LEVEMIR SUB-Q SCH (12:24)
[2016-11-09] MEDS: NACL 0.45% 1000 ML 1,000 ML IV SCH (12:35)
[2016-11-09 16:25] VITALS: BP 131/86
== END 2016-11-09 18:45 | disposition home health service (06) | DRG 871 ==
LOC: ED 07:59 → CC1 11:44 → 3A 11-07 16:53
PROVIDERS: ADMIT Internal Medicine; ATTEND Internal Medicine
PROC: 4A033R1 Measurement of Arterial Saturation, Peripheral, Percutaneous Approach (ICD-10-PCS; principal; 2016-11-03)
PROC: 06HN33Z Insertion of Infusion Device into Left Femoral Vein, Percutaneous Approach (ICD-10-PCS; 2016-11-03)
PROC: 5A1945Z Respiratory Ventilation, 24-96 Consecutive Hours (ICD-10-PCS; 2016-11-03)
PROC: 0BH17EZ Insertion of Endotracheal Airway into Trachea, Via Natural or Artificial Opening (ICD-10-PCS; 2016-11-03)
DX: A41.9 Sepsis, unspecified organism (principal); J96.01 Acute respiratory failure with hypoxia; G93.41 Metabolic encephalopathy; N17.0 Acute kidney failure with tubular necrosis; R65.21 Severe sepsis with septic shock; E10.10 Type 1 diabetes mellitus with ketoacidosis without coma; I60.9 Nontraumatic subarachnoid hemorrhage, unspecified; J18.9 Pneumonia, unspecified organism; E46 Unspecified protein-calorie malnutrition; Z68.1 Body mass index [BMI] 19.9 or less, adult; E87.0 Hyperosmolality and hypernatremia; I42.9 Cardiomyopathy, unspecified; Z91.19 Patient's noncompliance with other medical treatment and regimen; K21.9 Gastro-esophageal reflux disease without esophagitis; Z83.3 Family history of diabetes mellitus; Z82.49 Family history of ischemic heart disease and other diseases of the circulatory system; F12.90 Cannabis use, unspecified, uncomplicated; E87.5 Hyperkalemia; E83.51 Hypocalcemia; I27.2 Other secondary pulmonary hypertension; R56.9 Unspecified convulsions; D64.9 Anemia, unspecified; E87.6 Hypokalemia; N18.9 Chronic kidney disease, unspecified; I12.9 Hypertensive chronic kidney disease with stage 1 through stage 4 chronic kidney disease, or unspecified chronic kidney disease
CPT/HCPCS: 36415; 36600; 70450; 70544; 70551; 71010; 76770; 80048; 80061; 80307; 81001; 82140; 82550; 82553; 82565; 82570; 82803; 82805; 82962; 83036; 83735; 83935; 84100; 84295; 84300; 84484; 85007; 85025; 85379; 85610; 85730; 86140; 86850; 86900; 86901; 87040; 87086; 87205; 93005; 93010; 93306; 93970; 94002; 94003; 94640; 94760; 96361; 96365; 96375; 99291; J0330; J0583; J0610; J1644; J1815; J1818; J1953; J1956; J2060; J2250; J2543; J3010; J3246; J3370; J3480; J7030; J7070

== ENCOUNTER 2016-11-10 05:02 | Emergency (ER) | payer SELFPAY ==
[2016-11-10 05:58] LABS: Hematocrit 24.1 % (30.3-42.9); Hemoglobin 7.9 gm/dl (10.1-14.3); Mean Corpuscular HGB Conc 33 % (30-34); Mean Corpuscular Hemoglobin 28 pg (28-32); Mean Corpuscular Volume 87 fl (79-97); Platelet Count 239 K/mm3 (140-440); Red Blood Count 2.78 M/mm3 (3.65-5.03); Red Cell Distribution Width 19.3 % (13.2-15.2); White Blood Count 8.1 K/mm3 (4.5-11.0)
[2016-11-10 06:11] LABS: Alanine Aminotransferase 30 units/L (7-56); Albumin 2.9 g/dL (3.9-5); Alkaline Phosphatase 326 units/L (35-129); Anion Gap 17 mmol/L; Blood Urea Nitrogen 11 mg/dL (7-17); Calcium 7.3 mg/dL (8.4-10.2); Carbon Dioxide 23 mmol/L (22-30); Chloride 102.3 mmol/L (98-107); Glucose 130 mg/dL (65-100); Potassium 4.3 mmol/L (3.6-5.0); Sodium 138 mmol/L (137-145); Total Protein 5.8 g/dL (6.3-8.2)
[2016-11-10 06:25] LABS: Bilirubin,Urine NEG (Negative); Blood,Urine NEG (Negative); Ketones,Urine NEG (Negative); Leukocyte Esterase,Urine SM (Negative); Nitrite,Urine NEG (Negative); Urobilinogen,Urine < 2.0 mg/dL (<2.0)
[2016-11-10] MEDS ORDERED: NACL 0.9% 500 ML 500 ML IV ONE ×2 (06:36→09:00)
--- NOTE | 2016-11-10 06:38 | Emergency Department Report ---
HPI - General Chief Complaint: Hypoglycemia Time Seen by Provider: 11/10/16 06:20 - HPI HPI: This is a 46-year-old Afro[place] female presents to the emergency department by EMS from home when the patient was found unresponsive. She had a blood sugar of 22 and was given an amp of D50. Her blood sugar had gone up to 115 prior to arrival. Upon receiving the D50, the patient became much more awake, alert and appropriate. She remains awake and alert and has no current complaints. She has a history of insulin-dependent diabetes and is well-known to this department but usually she is here for significantly elevated blood sugar levels and diabetic ketoacidosis. She takes NovoLog and Lantus and says she took her insulin last night. She did eat dinner last night. She denies thinking that she took any extra insulin or an inappropriate dose. She does not have a primary care doctor. ED Past Medical Hx - Past Medical History Previous Medical History?: Yes Hx Hypertension: Yes Hx Congestive Heart Failure: No Hx Diabetes: Yes Hx GERD: Yes Hx Sickle Cell Disease: No Hx Asthma: No Hx COPD: No Hx HIV: No - Social History Smoking Status: Never Smoker Substance Use Type: Alcohol - Medications Home Medications: Home Medications Medication Instructions Recorded Confirmed Last Taken Type Calcium Carbonate [Oscal] 1,250 mg PO BID #60 tablet 11/08/16 Unknown Rx Insulin NPH/Regular [NovoLIN 70/30] 10 unit SUB-Q BIDDIAB 30 Days 11/08/16 Unknown Rx Metoprolol [Lopressor TAB] 12.5 mg PO BID #60 tablet 11/08/16 Unknown Rx Metoprolol [Lopressor TAB] 25 mg PO BID #60 tablet 11/08/16 Unknown Rx Pantoprazole [Protonix TAB] 40 mg PO QDAY #30 tablet 11/08/16 Unknown Rx ED Review of Systems ROS: Stated complaint: HYPOGLYCEMIA Other details as noted in HPI Comment: All other systems reviewed and negative Constitutional: denies: chills, fever Eyes: denies: eye pain, eye discharge, vision change ENT: denies: ear pain, throat pain Respiratory: denies: cough, shortness of breath, wheezing Endocrine: no symptoms reported Gastrointestinal: denies: abdominal pain, nausea, diarrhea Genitourinary: denies: urgency, dysuria, discharge Musculoskeletal: denies: back pain, joint swelling, arthralgia Skin: denies: rash, lesions Neurological: confusion (resolved). denies: headache Physical Exam - Physical Exam Vital Signs: Vital Signs 11/10/16 11/10/16 11/10/16 05:01 05:15 05:25 Temperature 97.7 F Pulse Rate 123 H Respiratory 22 22 Rate Blood Pressure 177/91 Blood Pressure 177/91 [Left] O2 Sat by Pulse 99 98 98 Oximetry 11/10/16 11/10/16 05:30 06:00 Temperature Pulse Rate 111 H 107 H Respiratory 22 18 Rate Blood Pressure 158/103 151/101 Blood Pressure [Left] O2 Sat by Pulse 99 100 Oximetry Physical Exam: GENERAL: The patient is well-developed well-nourished. HEENT: Normocephalic. Atraumatic. Extraocular motions are intact. Patient has moist mucous membranes. Pupils equal reactive to light bilaterally. No nystagmus. NECK: Supple. Trachea is midline. CHEST/LUNGS: Clear to auscultation. There is no respiratory distress noted. HEART/CARDIOVASCULAR: Regular. There is mild tachycardia. There is no gallop rub or murmur. ABDOMEN: Abdomen is soft, nontender. Patient has normal bowel sounds. There is no abdominal distention. SKIN: There is no rash. There is no edema. There is no diaphoresis. NEURO: The patient is awake, alert, and oriented. The patient is cooperative. The patient has no focal neurologic deficits. The patient has normal speech. Cranial nerves II through XII grossly intact. MUSCULOSKELETAL: There is no tenderness or deformity. There is no limitation range of motion. There is no evidence of acute injury. Radial pulse +2 over 4 bilaterally. Cap refill less than 2 seconds. ED Course Vital Signs 11/10/16 11/10/16 11/10/16 05:01 05:15 05:25 Temperature 97.7 F Pulse Rate 123 H Respiratory 22 22 Rate Blood Pressure 177/91 Blood Pressure 177/91 [Left] O2 Sat by Pulse 99 98 98 Oximetry 11/10/16 11/10/16 05:30 06:00 Temperature Pulse Rate 111 H 107 H Respiratory 22 18 Rate Blood Pressure 158/103 151/101 Blood Pressure [Left] O2 Sat by Pulse 99 100 Oximetry ED Medical Decision Making - Lab Data Result diagrams: 11/10/16 05:35 11/10/16 05:35 - EKG Data -: EKG Interpreted by Me EKG shows normal: sinus rhythm, axis, intervals, QRS complexes, ST-T waves Rate: tachycardia (115 bpm) - EKG Data When compared to previous EKG there are: previous EKG unavailable Interpretation: normal EKG (with sinus tachycardia) - Medical Decision Making 46-year-old female presents the emergency department with an episode of hypoglycemia. The patient was initially unresponsive which is what caused the EMS call but after being found to have a 22 blood sugar she was given D50 and became awake and alert. She has been awake and alert and lucid since being in the emergency department. Vital signs stable throughout her ED course with some mild tachycardia at first. Patient's labs are mostly unremarkable. She has been reevaluated multiple times for multiple hours, as has her blood sugar, and both have remained stable. The rest of her labs are unremarkable do not show an etiology of the patient's symptoms. The patient is on blood pressure medication which included Lopressor and when she was given a dose of that it helped control her blood pressure and her heart rate. Patient is stable and safe for discharge home at this time. The patient was given multiple primary care doctor referrals. She's been encouraged to follow up with these physicians but return to the ER with any worsening of her symptoms or any acute distress. She understands and agrees the plan. The patient was seen ambulatory in the emergency department prior to discharge and appeared stable while during so. Critical Care Time: No Critical care attestation.: If time is entered above; I have spent that time in minutes in the direct care of this critically ill patient, excluding procedure time. ED Disposition Clinical Impression: Hypoglycemia Anemia Qualifiers: Anemia type: unspecified type Qualified Code(s): D64.9 - Anemia, unspecified Disposition: DC-01 TO HOME OR SELFCARE Is pt being admited?: No Condition: Stable Instructions: Diabetic Hypoglycemia (ED), Anemia (ED) Additional Instructions: Please follow-up with a primary care doctor in the next few days. Please follow your normal diabetes regiment but make sure that she will be at least 3 normal meals when taking her insulin throughout the day. Keep a blood sugar log. Return to the emergency department with any uncontrolled low or high blood sugar, any chest pain or shortness of breath, or any acute distress. Referrals: PRIMARY CARE, [Primary Care Provider] - 3-5 Days TOD PANCHAL MD [Staff Physician] - 3-5 Days [facility] [Outside] - 3-5 Days Time of Disposition: 11:45
[2016-11-10 07:25] LABS: Anisocytosis 1+; Basophils % (Manual) 0 % (0.0-1.8); Blastocytes % (Manual) 0 %; Diff Status Complete; Hypochromasia 1+
[2016-11-10] MEDS ORDERED: LOPRESSOR IV ONE (09:59)
[2016-11-10 12:47] VITALS: BP 147/96
== END 2016-11-10 13:07 | disposition home or self-care (01) ==
LOC: ED 05:02
DX: E11.649 Type 2 diabetes mellitus with hypoglycemia without coma (principal); D64.9 Anemia, unspecified; I10 Essential (primary) hypertension; K21.9 Gastro-esophageal reflux disease without esophagitis; Z79.4 Long term (current) use of insulin
CPT/HCPCS: 36415; 80053; 81001; 82805; 82962; 84484; 85007; 85025; 93005; 93010; 96361; 96374; 99284; J7040

== ENCOUNTER 2016-12-03 22:53 | Inpatient (IN) | payer SELFPAY ==
[2016-12-03] MEDS ORDERED: NACL 0.9% 1000 ML 1,000 ML ONE (23:00)
[2016-12-03] MEDS ORDERED: MAGNESIUM SULFATE 2GM/50ML 2 GM/50 ML BAG IV ONE ×2 (23:12→23:45)
[2016-12-03] MEDS ORDERED: CALCIUM CHLORIDE IV ONE (23:14)
[2016-12-03] MEDS ORDERED: NACL 0.9% 1000 ML 1,000 ML IV ONE (23:24)
[2016-12-03] MEDS ORDERED: BABY ASPIRIN PO ONE (23:26)
[2016-12-03] MEDS ORDERED: DIPRIVAN 10 MG/ML 1,000 MG/100 ML BOTTLE IV ONE (23:27)
[2016-12-03] MEDS ORDERED: ARTIFICIAL TEARS OPHTH OINT OU PRN (23:30)
[2016-12-03] MEDS ORDERED: VASELINE LIP THERAPY TP PRN (23:30)
[2016-12-03] MEDS ORDERED: HEPARIN 10,000 UNITS/10 ML ONE (23:32)
[2016-12-03] MEDS ORDERED: ACTIVASE ONE (23:43)
[2016-12-03 23:44] LABS: Mean Corpuscular HGB Conc 21 % (30-34); Mean Corpuscular Hemoglobin 29 pg (28-32); White Blood Count 21.3 K/mm3 (4.5-11.0)
[2016-12-03 23:45] LABS: Hematocrit 41.6 % (30.3-42.9); Hemoglobin 8.9 gm/dl (10.1-14.3); Mean Corpuscular Volume 134 fl (79-97); Red Cell Distribution Width 21.1 % (13.2-15.2)
[2016-12-03] MEDS ORDERED: fentaNYL DRIP Premix 2,000 MCG/100 ML BAG IV SCH (23:45)
[2016-12-03] MEDS ORDERED: ASPIRIN PR ONE ×2 (23:47→23:49)
[2016-12-03 23:50] LABS: INR 1.46 (0.87-1.13)
[2016-12-04] MEDS ORDERED: ACTIVASE IV ONE
[2016-12-04] MEDS ORDERED: VIAFLEX EMPTY CONTAINER IV ONE
[2016-12-04] MEDS ORDERED: NACL 0.9% 1000 ML 1,000 ML IV ONE (00:02)
[2016-12-04 00:03] LABS: Albumin 3.5 g/dL (3.9-5); Albumin/Globulin Ratio 1.3 %; Alkaline Phosphatase 181 units/L (35-129); BUN/Creatinine Ratio 21.03; Bilirubin,Total < 0.20 mg/dL (0.1-1.2); Blood Urea Nitrogen 61 mg/dL (7-17); Calcium 8.7 mg/dL (8.4-10.2); Chloride 73.2 mmol/L (98-107); Creatine Kinase 60 units/L (30-135); Sodium 124 mmol/L (137-145); Total Protein 6.2 g/dL (6.3-8.2)
--- NOTE | 2016-12-04 00:04 | Emergency Department Report ---
ED Altered Mental Status HPI - General Chief Complaint: Altered Mental Status Stated Complaint: HIGH BLOOD SUGAR Source: patient Mode of arrival: Ambulatory Limitations: No Limitations - History of Present Illness Initial Comments: 46-year-old female with past medical history of diabetes, chronic kidney disease , hypertension presenting to the emergency department with change in mental status. Per EMS, family called when they apprecaited the patient had decreased responsiveness in the home. Per EMS they checked her blood glucose and it read "high", other vitals are stable. Patient had decreased responsiveness for the EMS team as well. She opens her eyes to name calling only, she had deep breathing on their assessment. MD Complaint: altered mental status - Related Data Home Medications Medication Instructions Recorded Confirmed Last Taken HumaLOG VIAL See Protocol SQ ACHS PRN 12/04/16 12/04/16 Unknown Lantus VIAL 12/04/16 Unknown Previous Rx's Medication Instructions Recorded Last Taken Type RX: Calcium Carbonate [Oscal] 1,250 mg PO BID #60 tablet 11/08/16 Unknown Rx RX: Insulin NPH/Regular [NovoLIN 10 unit SUB-Q BIDDIAB 30 Days 11/08/16 Unknown Rx 70/30] RX: Metoprolol [Lopressor TAB] 12.5 mg PO BID #60 tablet 11/08/16 Unknown Rx RX: Metoprolol [Lopressor TAB] 25 mg PO BID #60 tablet 11/08/16 Unknown Rx RX: Pantoprazole [Protonix TAB] 40 mg PO QDAY #30 tablet 11/08/16 Unknown Rx Allergies Allergy/AdvReac Type Severity Reaction Status Date / Time No Known Allergies Allergy Verified 12/03/16 23:01 ED Review of Systems ROS: Stated complaint: HIGH BLOOD SUGAR Other details as noted in HPI Comment: Unobtainable due to pts medical conditions (pt altered) ED Past Medical Hx - Past Medical History Previous Medical History?: Yes Hx Hypertension: Yes Hx Congestive Heart Failure: No Hx Diabetes: Yes Hx GERD: Yes Hx Sickle Cell Disease: No Hx Asthma: No Hx COPD: No Hx HIV: No - Surgical History Past Surgical History?: Yes - Social History Smoking Status: Unknown if ever smoked - Medications Home Medications: Home Medications Medication Instructions Recorded Confirmed Last Taken Type RX: Calcium Carbonate [Oscal] 1,250 mg PO BID #60 tablet 11/08/16 12/05/16 Unknown Rx RX: Insulin NPH/Regular [NovoLIN 10 unit SUB-Q BIDDIAB 30 Days 11/08/16 Unknown Rx 70/30] RX: Metoprolol [Lopressor TAB] 12.5 mg PO BID #60 tablet 11/08/16 12/05/16 Unknown Rx RX: Metoprolol [Lopressor TAB] 25 mg PO BID #60 tablet 11/08/16 12/05/16 Unknown Rx RX: Pantoprazole [Protonix TAB] 40 mg PO QDAY #30 tablet 11/08/16 12/05/16 Unknown Rx HumaLOG VIAL See Protocol SQ ACHS PRN 12/04/16 12/04/16 Unknown History Lantus VIAL 12/04/16 Unknown History ED Physical Exam - General Limitations: No Limitations, Altered Mental Status General appearance: lethargic, obtunded - Head Head exam: Absent: atraumatic, normocephalic - Eye Eye exam: Present: EOMI - ENT ENT exam: Present: other (pt adentulous) - Respiratory Respiratory exam: Present: respiratory distress (pt with tachypnea and shallow breathing ). Absent: wheezes, rales - Cardiovascular Cardiovascular Exam: Present: normal rhythm, tachycardia - GI/Abdominal GI/Abdominal exam: Absent: distended, tenderness, guarding - Neurological Exam Neurological exam: Present: other (pt obtundated ) - Skin Skin exam: Present: warm, dry ED Course Vital Signs 12/03/16 12/03/16 12/03/16 23:03 23:10 23:20 Pulse Rate 111 H 122 H 82 Respiratory 12 22 26 H Rate Blood Pressure 120/82 120/82 198/175 Blood Pressure [Left] O2 Sat by Pulse Oximetry 12/03/16 12/03/16 12/03/16 23:30 23:40 23:50 Pulse Rate 123 H 108 H 86 Respiratory 28 H 89 H 25 H Rate Blood Pressure 198/175 98/11 98/11 Blood Pressure [Left] O2 Sat by Pulse Oximetry 12/04/16 12/04/16 12/04/16 00:02 00:10 00:20 Pulse Rate 93 H 93 H 93 H Respiratory 17 18 18 Rate Blood Pressure 98/11 72/30 67/30 Blood Pressure [Left] O2 Sat by Pulse 100 100 Oximetry 12/04/16 12/04/16 12/04/16 00:30 00:40 00:50 Pulse Rate 91 H 92 H 94 H Respiratory 18 18 18 Rate Blood Pressure 78/29 67/30 99/46 Blood Pressure [Left] O2 Sat by Pulse 100 100 100 Oximetry 12/04/16 12/04/16 12/04/16 01:00 01:10 01:19 Pulse Rate 96 H 96 H 93 H Respiratory 23 18 Rate Blood Pressure 115/51 115/51 78/29 Blood Pressure [Left] O2 Sat by Pulse 100 100 100 Oximetry 12/04/16 12/04/16 12/04/16 01:20 01:30 01:36 Pulse Rate 98 H 101 H 74 Respiratory 22 22 16 Rate Blood Pressure 117/52 139/61 Blood Pressure 112/58 [Left] O2 Sat by Pulse 100 100 95 Oximetry 12/04/16 12/04/16 12/04/16 02:22 02:30 02:40 Pulse Rate 105 H 107 H 107 H Respiratory 22 22 22 Rate Blood Pressure 142/78 142/78 Blood Pressure [Left] O2 Sat by Pulse 100 100 Oximetry 12/04/16 12/04/16 02:50 03:00 Pulse Rate 101 H 98 H Respiratory 22 22 Rate Blood Pressure 142/78 75/40 Blood Pressure [Left] O2 Sat by Pulse 100 Oximetry - Reevaluation(s) Reevaluation #1: 12/04/16 00:20 1) immediately upon arrival patient had EKG performed, EKG was obtained, it read STEMI. There is elevations in V1, aVR. The Sap Basis was activated. the patient was then intubated for airway protection given she had shallow breathing. The patient was successful she had bilateral breath sounds with 100 % oxygen saturation. While discussing the case with cardiology I considered patient had hyperkalemia given her history of DKA therefore insulin, calcium was ordered and given. Was given as well. I spoke with Dr. Mora cardiology who recommends a repeat EKG. During the repeat EKG patient went to cardiac arrest. 2) cardiac arrest patient's rhythms were: PEA> PEA>V FIB> VFIB> torsades Please see CPR flow sheet to see mental that were given during cardiac arrest Early after we obtained ROSC, Dr Stahl arrived and physically saw pt while she was in ED. The decision was made not to take pt to clinical lab specialist given she had has SAH less than one month prior and was not a candidate for lysis treatment 3)ET tube was moved up 3 cm after first CXR was performed. 4) Patient's blood pressure low map less than 65. Pressors. Admitting doctor aware of patient 5) I spoke to pt's aunt Miss Coronel who is aware that pt is in critical condition 6) Nephrology Dr Ricardo- recommends pt not a candidate for urgent HD as treating her DKA will decrease potassium 12/04/16 00:45 12/04/16 01:49 12/04/16 01:51 Reevaluation #2: 12/04/16 00:30 Pmo Lead has signed off given patient's multiple comorbidities. Dr. Fletcher does not feel patient is a suitable candidate for clinical lab specialist. Reevaluation #3: 12/04/16 00:30 Is a national shortage of sodium bicarbonate, pharmacy will replace her sodium acetate. - Central Line Placement Left Femoral Consent Obtained: emergent situation Time Out Performed: Yes MD Prep: mask, gown, gloves Central Line Prep: Chlorhexidine scrub Local Anesthesia Used: Lidocaine 1% Amount of Anesthesia Used (mls): 2 Ultrasound Used for Placement: No Central Line Lumen Inserted: triple Bloods Obtained for Lab: Yes Central Line Position: good blood return, all ports aspirated, flus, sutured in place with 2-0 Dressing Applied: Tegaderm Patient Tolerated Procedure: well, no complications Complications: none - Intubation Time Out Performed: Yes Sedative: Etomidate Paralytic: Rocuronium Laryngoscope: Pollo Size: 4 ET Tube Size: 7.5 Tube Secured Depth (cm): 24 Tube Secured Location: teeth Tube Placement Confirmation: visualized tube passing t, equal breath sounds bilat, no breath sounds over epi, confirmation by capnometr Patient Tolerated Procedure: well Intubation Complications: none - Lab Data Result diagrams: 12/07/16 06:00 12/07/16 21:35 Lab Results 12/03/16 12/03/16 12/03/16 Range/Units 22:58 23:20 23:20 WBC 21.3 H (4.5-11.0) K/mm3 RBC 3.10 L (3.65-5.03) M/mm3 Hgb 8.9 L (10.1-14.3) gm/dl Hct 41.6 (30.3-42.9) % MCV 134 H (79-97) fl MCH 29 (28-32) pg MCHC 21 L (30-34) % RDW 21.1 H (13.2-15.2) % Plt Count 145 (140-440) K/mm3 Add Manual Diff Complete Total Counted 100 Seg Neuts % (Manual) 69.0 (40.0-70.0) % Band Neutrophils % 6.0 % Lymphocytes % (Manual) 16.0 (13.4-35.0) % Reactive Lymphs % (Man) 0 % Monocytes % (Manual) 7.0 (0.0-7.3) % Eosinophils % (Manual) 1.0 (0.0-4.3) % Basophils % (Manual) 1.0 (0.0-1.8) % Metamyelocytes % 0 % Myelocytes % 0 % Promyelocytes % 0 % Blast Cells % 0 % Nucleated RBC % Not Reportable Seg Neutrophils # Man 14.7 H (1.8-7.7) K/mm3 Band Neutrophils # 1.3 K/mm3 Lymphocytes # (Manual) 3.4 (1.2-5.4) K/mm3 Abs React Lymphs (Man) 0.0 K/mm3 Monocytes # (Manual) 1.5 H (0.0-0.8) K/mm3 Eosinophils # (Manual) 0.2 (0.0-0.4) K/mm3 Basophils # (Manual) 0.2 H (0.0-0.1) K/mm3 Metamyelocytes # 0.0 K/mm3 Myelocytes # 0.0 K/mm3 Promyelocytes # 0.0 K/mm3 Blast Cells # 0.0 K/mm3 WBC Morphology Not Reportable Hypersegmented Neuts Not Reportable Hyposegmented Neuts Not Reportable Hypogranular Neuts Not Reportable Smudge Cells Not Reportable Toxic Granulation Not Reportable Toxic Vacuolation Not Reportable Dohle Bodies Not Reportable Pelger-Huet Anomaly Not Reportable Mary Rods Not Reportable Platelet Estimate Appears normal Clumped Platelets 1+ Plt Clumps, EDTA Not Reportable Large Platelets Not Reportable Giant Platelets Not Reportable Platelet Satelliting Not Reportable Plt Morphology Comment Not Reportable RBC Morphology Not Reportable Dimorphic RBCs Not Reportable Polychromasia Not Reportable Hypochromasia 1+ Poikilocytosis Not Reportable Anisocytosis 1+ Microcytosis Not Reportable Macrocytosis Not Reportable Spherocytes Not Reportable Pappenheimer Bodies Not Reportable Sickle Cells Not Reportable Target Cells Not Reportable Tear Drop Cells Not Reportable Ovalocytes Not Reportable Helmet Cells Not Reportable Landers-[place] Bodies Not Reportable [place] Rings Not Reportable Wilder Cells Not Reportable Bite Cells Not Reportable Crenated Cell Not Reportable Elliptocytes Not Reportable Acanthocytes (Spur) Not Reportable Rouleaux Not Reportable Hemoglobin C Crystals Not Reportable Schistocytes Not Reportable Malaria parasites Not Reportable Michael Bodies Not Reportable Hem Pathologist Commnt No PT 17.7 H (12.2-14.9) Sec. INR 1.46 H (0.87-1.13) APTT 31.0 (24.2-36.6) Sec. Sodium (137-145) mmol/L Potassium (3.6-5.0) mmol/L Chloride (98-107) mmol/L Carbon Dioxide (22-30) mmol/L Anion Gap mmol/L BUN (7-17) mg/dL Creatinine (0.7-1.2) mg/dL Estimated GFR ml/min BUN/Creatinine Ratio % Glucose (65-100) mg/dL POC Glucose > 500 H (70-105) Lactic Acid (0.7-2.0) mmol/L Calcium (8.4-10.2) mg/dL Total Bilirubin (0.1-1.2) mg/dL AST (5-40) units/L ALT (7-56) units/L Alkaline Phosphatase (35-129) units/L Total Creatine Kinase (30-135) units/L Troponin T (0.00-0.029) ng/mL Total Protein (6.3-8.2) g/dL Albumin (3.9-5) g/dL Albumin/Globulin Ratio % TSH (0.270-4.200) mlU/mL Blood Type Antibody Screen ISAIAH Antibody Screen 12/03/16 12/03/16 12/03/16 Range/Units 23:20 23:20 23:43 WBC (4.5-11.0) K/mm3 RBC (3.65-5.03) M/mm3 Hgb (10.1-14.3) gm/dl Hct (30.3-42.9) % MCV (79-97) fl MCH (28-32) pg MCHC (30-34) % RDW (13.2-15.2) % Plt Count (140-440) K/mm3 Add Manual Diff Total Counted Seg Neuts % (Manual) (40.0-70.0) % Band Neutrophils % % Lymphocytes % (Manual) (13.4-35.0) % Reactive Lymphs % (Man) % Monocytes % (Manual) (0.0-7.3) % Eosinophils % (Manual) (0.0-4.3) % Basophils % (Manual) (0.0-1.8) % Metamyelocytes % % Myelocytes % % Promyelocytes % % Blast Cells % % Nucleated RBC % Seg Neutrophils # Man (1.8-7.7) K/mm3 Band Neutrophils # K/mm3 Lymphocytes # (Manual) (1.2-5.4) K/mm3 Abs React Lymphs (Man) K/mm3 Monocytes # (Manual) (0.0-0.8) K/mm3 Eosinophils # (Manual) (0.0-0.4) K/mm3 Basophils # (Manual) (0.0-0.1) K/mm3 Metamyelocytes # K/mm3 Myelocytes # K/mm3 Promyelocytes # K/mm3 Blast Cells # K/mm3 WBC Morphology Hypersegmented Neuts Hyposegmented Neuts Hypogranular Neuts Smudge Cells Toxic Granulation Toxic Vacuolation Dohle Bodies Pelger-Huet Anomaly Mary Rods Platelet Estimate Clumped Platelets Plt Clumps, EDTA Large Platelets Giant Platelets Platelet Satelliting Plt Morphology Comment RBC Morphology Dimorphic RBCs Polychromasia Hypochromasia Poikilocytosis Anisocytosis Microcytosis Macrocytosis Spherocytes Pappenheimer Bodies Sickle Cells Target Cells Tear Drop Cells Ovalocytes Helmet Cells Landers-Fullerton Bodies [place] Rings Wilder Cells Bite Cells Crenated Cell Elliptocytes Acanthocytes (Spur) Rouleaux Hemoglobin C Crystals Schistocytes Malaria parasites Michael Bodies Hem Pathologist Commnt PT (12.2-14.9) Sec. INR (0.87-1.13) APTT (24.2-36.6) Sec. Sodium 124 L (137-145) mmol/L Potassium 9.6 H* (3.6-5.0) mmol/L Chloride 73.2 L (98-107) mmol/L Carbon Dioxide 3 L* (22-30) mmol/L Anion Gap 57 mmol/L BUN 61 H (7-17) mg/dL Creatinine 2.9 H (0.7-1.2) mg/dL Estimated GFR 21 ml/min BUN/Creatinine Ratio 21.03 % Glucose 1175 H* (65-100) mg/dL POC Glucose (70-105) Lactic Acid 13.20 H* (0.7-2.0) mmol/L Calcium 8.7 (8.4-10.2) mg/dL Total Bilirubin < 0.20 (0.1-1.2) mg/dL AST 28 (5-40) units/L ALT 10 (7-56) units/L Alkaline Phosphatase 181 H (35-129) units/L Total Creatine Kinase 60 (30-135) units/L Troponin T 0.028 (0.00-0.029) ng/mL Total Protein 6.2 L (6.3-8.2) g/dL Albumin 3.5 L (3.9-5) g/dL Albumin/Globulin Ratio 1.3 % TSH 1.600 (0.270-4.200) mlU/mL Blood Type Antibody Screen ISAIAH Antibody Screen 12/03/16 12/03/16 Range/Units 23:43 23:58 WBC (4.5-11.0) K/mm3 RBC (3.65-5.03) M/mm3 Hgb (10.1-14.3) gm/dl Hct (30.3-42.9) % MCV (79-97) fl MCH (28-32) pg MCHC (30-34) % RDW (13.2-15.2) % Plt Count (140-440) K/mm3 Add Manual Diff Total Counted Seg Neuts % (Manual) (40.0-70.0) % Band Neutrophils % % Lymphocytes % (Manual) (13.4-35.0) % Reactive Lymphs % (Man) % Monocytes % (Manual) (0.0-7.3) % Eosinophils % (Manual) (0.0-4.3) % Basophils % (Manual) (0.0-1.8) % Metamyelocytes % % Myelocytes % % Promyelocytes % % Blast Cells % % Nucleated RBC % Seg Neutrophils # Man (1.8-7.7) K/mm3 Band Neutrophils # K/mm3 Lymphocytes # (Manual) (1.2-5.4) K/mm3 Abs React Lymphs (Man) K/mm3 Monocytes # (Manual) (0.0-0.8) K/mm3 Eosinophils # (Manual) (0.0-0.4) K/mm3 Basophils # (Manual) (0.0-0.1) K/mm3 Metamyelocytes # K/mm3 Myelocytes # K/mm3 Promyelocytes # K/mm3 Blast Cells # K/mm3 WBC Morphology Hypersegmented Neuts Hyposegmented Neuts Hypogranular Neuts Smudge Cells Toxic Granulation Toxic Vacuolation Dohle Bodies Pelger-Huet Anomaly Mary Rods Platelet Estimate Clumped Platelets Plt Clumps, EDTA Large Platelets Giant Platelets Platelet Satelliting Plt Morphology Comment RBC Morphology Dimorphic RBCs Polychromasia Hypochromasia Poikilocytosis Anisocytosis Microcytosis Macrocytosis Spherocytes Pappenheimer Bodies Sickle Cells Target Cells Tear Drop Cells Ovalocytes Helmet Cells Landers-Fullerton Bodies [place] Rings Jerri Cells Bite Cells Crenated Cell Elliptocytes Acanthocytes (Spur) Rouleaux Hemoglobin C Crystals Schistocytes Malaria parasites Michael Bodies Hem Pathologist Commnt PT (12.2-14.9) Sec. INR (0.87-1.13) APTT (24.2-36.6) Sec. Sodium (137-145) mmol/L Potassium (3.6-5.0) mmol/L Chloride (98-107) mmol/L Carbon Dioxide (22-30) mmol/L Anion Gap mmol/L BUN (7-17) mg/dL Creatinine (0.7-1.2) mg/dL Estimated GFR ml/min BUN/Creatinine Ratio % Glucose (65-100) mg/dL POC Glucose > 500 H (70-105) Lactic Acid (0.7-2.0) mmol/L Calcium (8.4-10.2) mg/dL Total Bilirubin (0.1-1.2) mg/dL AST (5-40) units/L ALT (7-56) units/L Alkaline Phosphatase (35-129) units/L Total Creatine Kinase (30-135) units/L Troponin T (0.00-0.029) ng/mL Total Protein (6.3-8.2) g/dL Albumin (3.9-5) g/dL Albumin/Globulin Ratio % TSH (0.270-4.200) mlU/mL Blood Type O POSITIVE Antibody Screen TNR ISAIAH Antibody Screen Negative - EKG Data -: EKG Interpreted by Me EKG shows normal: sinus rhythm Rate: tachycardia When compared to previous EKG there are: other (pt had ST segment elevations on V1, AVR, QTC 600) - Medical Decision Making 6-year-old female with past medical history of diabetes, chronic kidney disease , subarachnoid hemorrhage presenting to the emergency department with AMS Critical Care Time: Yes Critical care attestation.: If time is entered above; I have spent that time in minutes in the direct care of this critically ill patient, excluding procedure time. Critical Care Time: 60 minutes of critical care time which does not include time spent on billable procedures ED Disposition Clinical Impression: Metabolic encephalopathy, Lactic acidosis, Cardiac arrest DKA (diabetic ketoacidoses) Qualifiers: Diabetes mellitus type: type 1 Diabetes mellitus complication detail: with coma Qualified Code(s): E10.11 - Type 1 diabetes mellitus with ketoacidosis with coma Altered mental status Qualifiers: Altered mental status type: unspecified Qualified Code(s): R41.82 - Altered mental status, unspecified Disposition: [id number]-09 OP ADMIT IP TO THIS HOSP Is pt being admited?: Yes Condition: Critical
[2016-12-04] MEDS ORDERED: ZOSYN/NS 4.5GM/100ML 4.5 GM/100 ML VIAL IV ONE (00:09)
[2016-12-04] MEDS ORDERED: SODIUM BICARBONATE 150 MEQ in D5W 1,000 ML IV ONE (00:11)
[2016-12-04 00:12] LABS: Anion Gap 57 mmol/L; Carbon Dioxide 3 mmol/L (22-30); Glucose 1175 mg/dL (65-100); Potassium 9.6 mmol/L (3.6-5.0)
[2016-12-04 00:13] LABS: Alanine Aminotransferase 10 units/L (7-56)
[2016-12-04] MEDS ORDERED: D50W (25GM) IV PRN (00:14)
--- NOTE | 2016-12-04 00:15 | Consultation ---
History of Present Illness Consult date: 12/04/16 Requesting physician: WENDY DE LEON Consult reason: cardiac arrest History of present illness: This is a 46-year-old Afro-[place] female with a history of diabetes insulin- dependent renal insufficiency was in the hospital 2 weeks ago for altered mental status and DKA acute kidney failure was resuscitated septic with sepsis patient was discharged with insulin and blood pressure medications patient is also found to have a subarachnoid hemorrhage at that time and was told to hold off aspirin therapy for at least 2 weeks. No family at the bedside as per ED patient was brought by EMS for altered mental status and unresponsiveness had agonal breathing patient was intubated initial EKG showed prolonged QT with ST elevation in V1 and aVR patient's is currently went to PEA arrest and sustained epinephrine and cardiopulmonary arrest patient was found to have V. fib and possible torsades and was shocked twice received amiodarone 300 mg and did not receive heparin. Repeat EKG postcode shows normal sinus rhythm with normal eyes QT and no longer ST elevation patient was found to show blood work were potassium 9.6 and Leukos 1000 . Review the chart patient had transient ST elevations on last admission CT scan of head initially show possible tiny subarachnoid hemorrhage. This was confirmed by MRI that showed subarachnoid hemorrhage in the right frontal lobe. Small. Subacute. Echocardiogram ejection fraction 45% normal LVH. MRA negative. Chest x-rays were negative throughout hospital stay. Past History Past Medical History: anemia, hypertension, hyperlipidemia, renal failure Past Surgical History: No surgical history Social history: no significant social history Medications and Allergies Allergies Allergy/AdvReac Type Severity Reaction Status Date / Time No Known Allergies Allergy Verified 12/03/16 23:01 Home Medications Medication Instructions Recorded Confirmed Last Taken Type Calcium Carbonate [Oscal] 1,250 mg PO BID #60 tablet 11/08/16 Unknown Rx Insulin NPH/Regular [NovoLIN 70/30] 10 unit SUB-Q BIDDIAB 30 Days 11/08/16 Unknown Rx Metoprolol [Lopressor TAB] 12.5 mg PO BID #60 tablet 11/08/16 Unknown Rx Metoprolol [Lopressor TAB] 25 mg PO BID #60 tablet 11/08/16 Unknown Rx Pantoprazole [Protonix TAB] 40 mg PO QDAY #30 tablet 11/08/16 Unknown Rx Active Meds: Active Medications Hydrophilic Ointment (Vaseline Lip Therapy) 1 applic TP Q2HR PRN PRN Reason: Dry Lips Sodium Chloride (Nacl 0.9% 1000 Ml) 1,000 mls @ 999 mls/hr IV BOLUS ONE Stop: 12/04/16 00:24 Fentanyl Citrate (Fentanyl Drip Premix) 2,000 mcg in 100 mls @ 2.722 mls/hr IV TITR ULI; 1 MCG/KG/HR PRN Reason: Protocol Propofol (Diprivan 10 Mg/Ml) 1,000 mg in 100 mls @ 1.633 mls/hr IV TITR ULI; 5 MCG/KG/MIN PRN Reason: Protocol Vancomycin HCl (Vancomycin/Ns 1 Gm/250 Ml) 1 gm in 250 mls @ 167.007 mls/hr IV ONCE ONE Stop: 12/04/16 01:29 Sodium Chloride (Nacl 0.9% 1000 Ml) 1,000 mls @ 999 mls/hr IV BOLUS ONE Stop: 12/04/16 01:02 Amiodarone HCl 900 mg/ (Dextrose) 500 mls @ 33.33 mls/hr IV DIRECT ULI; 1 MG /MIN PRN Reason: Protocol Piperacillin Sod/Tazobactam Sod (Zosyn/Ns 4.5gm/100ml) 4.5 gm in 100 mls @ 200 mls/hr IV ONCE ONE Stop: 12/04/16 00:38 Sodium Bicarbonate 150 meq/ (Dextrose) 1,150 mls @ 75 mls/hr IV DIRECT ONE Stop: 12/04/16 15:30 Multi-Ingred Cream/Lotion/Oil/Oint (Artificial Tears Ophth Oint) 1 applic OU Q4HR PRN PRN Reason: Dry Eye(s) Review of Systems All systems: negative Physical Examination Vital Signs Pulse Resp BP 111 H 12 120/82 12/03/16 23:03 12/03/16 23:03 12/03/16 23:03 General appearance: other (intubated) HEENT: Positive: Other (sluggish) Neck: Positive: trachea midline Cardiac: Positive: Reg Rate and Rhythm Lungs: Positive: clear to auscultation Neuro: Positive: Other Abdomen: Positive: Soft (sedated) Female genitourinary: deferred Extremities: Present: normal. Absent: edema Results 12/03/16 23:20 12/03/16 23:20 Coagulation 12/03/16 Range/Units 23:20 PT 17.7 H (12.2-14.9) Sec. INR 1.46 H (0.87-1.13) APTT 31.0 (24.2-36.6) Sec. CBC 12/03/16 Range/Units 23:20 WBC 21.3 H (4.5-11.0) K/mm3 RBC 3.10 L (3.65-5.03) M/mm3 Hgb 8.9 L (10.1-14.3) gm/dl Hct 41.6 (30.3-42.9) % Comprehensive Metabolic Panel 12/03/16 Range/Units 23:20 Sodium 124 L (137-145) mmol/L Potassium 9.6 H* (3.6-5.0) mmol/L Chloride 73.2 L (98-107) mmol/L Carbon Dioxide 3 L* (22-30) mmol/L BUN 61 H (7-17) mg/dL Creatinine 2.9 H (0.7-1.2) mg/dL Glucose 1175 H* (65-100) mg/dL Calcium 8.7 (8.4-10.2) mg/dL Alkaline Phosphatase 181 H (35-129) units/L Total Protein 6.2 L (6.3-8.2) g/dL Albumin 3.5 L (3.9-5) g/dL - Imaging and Cardiology Echo: report reviewed (11/2016 EF 40to45%) EKG interpretations - Telemetry EKG Rhythm: Sinus Rhythm (initial EKG ST elevation and anterior with prolonged QT repeat EKG normal sinus rhythm with normalization acute to) Assessment and Plan Acute respiratory failure Cardiac arrest Hyperkalemia Acute on chronic renal failure DKA Anemia Stress subarachnoid bleed recent Altered mental status Hyperkalemia Recommend in view of patient's condition and recent subarachnoid bleed resolution of his elevations patient is not a candidate for cardiac sleep lab technologist in view of cardiac CPR reversed hyperkalemia no anticoagulation given recent subarachnoid bleed and DKA treatment as per primary care team and possible sepsis treatment
[2016-12-04] MEDS ORDERED: LEVOPHED DRIP 4 MG/NS 250 ML 4 MG/250 ML BAG IV ONE ×2 (00:18→03:10)
[2016-12-04] MEDS ORDERED: LEVOPHED DRIP 4 MG/NS 250 ML 4 MG/250 ML BAG IV SCH (00:20)
[2016-12-04 00:24] LABS: Anisocytosis 1+; Blastocytes % (Manual) 0 %; Hypochromasia 1+; Platelet Clumps 1+
[2016-12-04 00:25] LABS: Diff Status Complete; Platelet Count 145 K/mm3 (140-440)
[2016-12-04] MEDS ORDERED: ASPIRIN PR SCH (01:00)
[2016-12-04] MEDS ORDERED: D5W IV ONE (01:00)
[2016-12-04] MEDS ORDERED: ASPIRIN PR ONE (01:00)
[2016-12-04] MEDS ORDERED: NAAC IV ONE (01:00)
[2016-12-04] MEDS: LEVOPHED 8 MG in NACL 0.9% 250ML 242 ML IV SCH ×3 (01:21→22:42)
[2016-12-04] MEDS: CORDARONE 900 MG in D5W 482 ML IV SCH ×2 (01:25→19:30)
[2016-12-04] MEDS: NovoLIN R 100 UNITS in NACL 0.9% 99 ML IV SCH ×6 (01:29→19:34)
[2016-12-04 01:33] LABS: ISTAT Base Excess -30; ISTAT HCO3 5.5; ISTAT PCO2 38.8 (35-45); ISTAT PH 6.759 (7.35-7.45); ISTAT PO2 437 (80-105); ISTAT SO2 100; ISTAT TCO2 7
[2016-12-04] MEDS ORDERED: NACL 0.9% 1000 ML 1,000 ML IV SCH (02:00)
[2016-12-04 02:07] LABS: Phosphorous 15.7 mg/dL (2.5-4.5)
--- NOTE | 2016-12-04 02:28 | History and Physical Report ---
History of Present Illness Date of examination: 12/04/16 Date of admission: 12/04/16 01:07 Chief complaint: Chief complaint is change in mental status History of present illness: History of present illness [place] patient is a 46-year-old female who was noted by family to have change in mental status with patient being unable to comment indicates like she used to do before and EMS was called. EMS noted that patient had change in mental status and they checked patient's blood glucose level and noted that the blood glucose level was too high. There was no history of chest pain and no history of fever, nausea or vomiting and EMS transported patient to the emergency room where the emergency room doctor noted that patient breathing was labored and patient was subsequently intubated and noticed to have ST elevation myocardial infarction and DKA. 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 Stahl consult. And he came and saw patient in the emergency room and said that the patient is not a candidate for thrombolytic therapy or heparin treatment because of recent history of subarachnoid hemorrhage. Past History Past Medical History: anemia, diabetes, hypertension, hyperlipidemia, renal failure Past Surgical History: No surgical history Social history: no significant social history Family history: no significant family history Medications and Allergies Allergies Allergy/AdvReac Type Severity Reaction Status Date / Time No Known Allergies Allergy Verified 12/03/16 23:01 Home Medications Medication Instructions Recorded Confirmed Last Taken Type Calcium Carbonate [Oscal] 1,250 mg PO BID #60 tablet 11/08/16 Unknown Rx Insulin NPH/Regular [NovoLIN 70/30] 10 unit SUB-Q BIDDIAB 30 Days 11/08/16 Unknown Rx Metoprolol [Lopressor TAB] 12.5 mg PO BID #60 tablet 11/08/16 Unknown Rx Metoprolol [Lopressor TAB] 25 mg PO BID #60 tablet 11/08/16 Unknown Rx Pantoprazole [Protonix TAB] 40 mg PO QDAY #30 tablet 11/08/16 Unknown Rx Active Meds: Active Medications Dextrose (D50w (25gm)) 0 ml IV ONCE PRN PRN Reason: Hypoglycemia Hydrophilic Ointment (Vaseline Lip Therapy) 1 applic TP Q2HR PRN PRN Reason: Dry Lips Fentanyl Citrate (Fentanyl Drip Premix) 2,000 mcg in 100 mls @ 2.722 mls/hr IV TITR ULI; 1 MCG/KG/HR PRN Reason: Protocol Propofol (Diprivan 10 Mg/Ml) 1,000 mg in 100 mls @ 1.633 mls/hr IV TITR ULI; 5 MCG/KG/MIN PRN Reason: Protocol Amiodarone HCl 900 mg/ (Dextrose) 500 mls @ 33.33 mls/hr IV DIRECT ULI; 1 MG /MIN PRN Reason: Protocol Last Admin: 12/04/16 01:25 Dose: 1 mg/min, 33.33 mls/hr Sodium Bicarbonate 150 meq/ (Dextrose) 1,150 mls @ 0 mls/hr IV ONCE.ED ONE PRN Reason: Per Protocol Insulin Human Regular 100 (units/ Sodium Chloride) 100 mls @ 1 mls/hr IV TITR ULI; 1 UNITS/HR PRN Reason: Protocol Last Admin: 12/04/16 01:29 Dose: 8 units/hr, 8 mls/hr Norepinephrine 8 mg/ Sodium (Chloride) 250 mls @ 3.75 mls/hr IV TITR ULI; 2 MCG /MIN PRN Reason: Protocol Last Admin: 12/04/16 01:21 Dose: 59.73 mcg/min, 112 mls/hr Sodium Acetate 150 meq/ (Dextrose) 1,075 mls @ 84 mls/hr IV ONCE.ED ONE Stop: 12/04/16 13:47 Last Admin: 12/04/16 01:24 Dose: 84 mls/hr Sodium Chloride (Nacl 0.9% 1000 Ml) 1,000 mls @ 200 mls/hr IV DIRECT ULI Multi-Ingred Cream/Lotion/Oil/Oint (Artificial Tears Ophth Oint) 1 applic OU Q4HR PRN PRN Reason: Dry Eye(s) Review of Systems Constitutional: weakness, lethargy, no weight loss, no weight gain, no fever, no chills, no sweats, no anorexia, no poor appetite, no chronic pain Eyes: bilateral: other (NO BILATERAL EYE MOVEMENT) Ears, nose, mouth and throat: no ear pain, no nose pain, no nasal discharge, no sinus pressure, no bleeding gums, no mouth pain, no dysphagia, no hoarseness, no sore throat, no swelling in mouth, no swelling in throat, no voice changes, no headache, no vertigo, no pain front of neck, no neck fullness/pressure, no neck lump Breasts: deferred Cardiovascular: no chest pain, no orthopnea, no palpitations, no rapid/ irregular heart beat, no edema, no syncope, no lightheadedness, no shortness of breath, no dyspnea on exertion, no paroxysmal nocturnal dyspnea, no claudication , no phlebitis, no high blood pressure, no leg edema, no decreased exercise tolerance Respiratory: shortness of breath, no cough, no cough with sputum, no excessive sputum, no hemoptysis, no dyspnea on exertion, no congestion, no wheezing, no pleurisy, no pain, no pain on inspiration, no snoring, no sleep apnea, no respiratory infections, no home oxygen Gastrointestinal: no abdominal pain, no nausea, no vomiting, no diarrhea, no constipation, no change in bowel habits, no hematemesis, no BRBPR, no melena, no hematochezia, no loss of appetite, no early satiety, no heartburn, no indigestion, no excessive gas, no jaundice, no dyspepsia/bloating, no early satiety, no lactose intolerance Genitourinary Female: no dyspareunia, no dysmenorrhea, no pelvic pain, no flank pain, no menorrhagia, no dysuria, no urinary frequency, no urgency, no stress incontinence, no post void dribbling, no incomplete emptying, no urge incontinence, no mixed incontinence, no difficulty voiding, no nocturia, no vaginal itching, no vaginal discharge, no vaginal odor, no abnormal vaginal bleeding, no genital sores, no vaginal dryness, no decreased libido, no mood problems, no hot flashes, no prolapse symptoms, no , no difficulties conceiving, no kidney stones Menstruation: no period heavy, no period spotting Rectal: no pain, no hemorrhoids, no discharge, no flatulence Musculoskeletal: no neck stiffness, no neck pain, no arm numbness/tingling, no low back pain, no shooting leg pain, no leg numbness/tingling, no hot joints, no morning stiffness, no muscle weakness, no muscle cramps, no myalgias, no atrophy, no limitation of motion, no gait dysfunction, no frequent falls, no fractures, no loss of height, no prior amputations Integumentary: no rash, no pruritis, no redness, no sores, no jaundice, no boils , no bullae, no lesions, no darkening of skin, no depigmentation, no acne, no dryness, no color changes, no brittle nails, no striae, no hirsutism, no foot/ leg ulcers, no onychomycosis Neurological: no head injury, no transient paralysis, no paralysis, no weakness , no parathesias, no numbness, no tingling, no seizures, no syncope, no tremors , no ataxia, no vertigo, no headaches, no migraines, no tic, no convulsions, no aphasia, no change in speech, no change in mentation, no confusion, no memory loss, no gait dysfunction, no motor disturbance, no sensory deficit, no double vision, no loss of vision, no hearing difficulties, no burning pain, no paralysis, no spasticity Psychiatric: no anxiety, no memory loss, no change in sleep habits, no sleep disturbances, no insomnia, no hypersomnia, no change in appetite, no change in libido, no suicidal ideation, no disorientation, no hallucinations, no paranoia , no depression, no hopelessness, no anhedonia, no anxiety attacks, no difficulties concentrating, no confusion, no irritability, no sadness/ tearfullness Endocrine: no cold intolerance, no heat intolerance, no polyphagia, no excessive thirst, no polydipsia, no polyuria, no nocturia, no excessive sweating , no flushing, no increase in ring/shoe/hat size, no proptosis, no deepening of the voice, no thyroid mass, no palpatations, no high blood sugars, no low blood sugars, no recent glucocorticoid use Hematologic/Lymphatic: no easy bruising, no easy bleeding, no lymphadenopathy, no lymphedema, no thrombophilia, no other Allergic/Immunologic: no urticaria, no allergic rhinitis, no wheezing, no persistent infections, no anaphylaxis, no angioedema, no gluten intolerance, no seasonal allergies Exam - Constitutional Vitals: Temp Pulse Resp BP Pulse Ox 74 16 112/58 95 12/04/16 01:36 12/04/16 01:36 12/04/16 01:36 12/04/16 01:36 General appearance: Present: severe distress - EENT Eyes: Present: PERRL - Neck Neck: Present: supple, normal ROM. Absent: rigidity, enlarged thyroid, carotid bruits - Respiratory Respiratory effort: other (ENDOTRACHEAL TUBE WITH MECHANICAL VENTILATION) - Cardiovascular Rhythm: regular Heart Sounds: Present: S1 & S2. Absent: gallop, systolic murmur, diastolic murmur, rub, click - Extremities Extremities: no ischemia, No edema Peripheral Pulses: within normal limits - Abdominal General gastrointestinal: Present: soft, non-tender, non-distended, normal bowel sounds. Absent: tender, distended, rigid, hepatomegaly, splenomegaly, mass Female genitourinary: Present: deferred - Rectal Rectal Exam: deferred - Integumentary Integumentary: Present: clear, warm, dry, normal turgor. Absent: erythema, jaundice, rash, clammy Results - Labs CBC & Chem 7: 12/03/16 23:20 12/03/16 23:20 Labs: Laboratory Last Values WBC 21.3 K/mm3 (4.5-11.0) H 12/03/16 23:20 RBC 3.10 M/mm3 (3.65-5.03) L 12/03/16 23:20 Hgb 8.9 gm/dl (10.1-14.3) L 12/03/16 23:20 Hct 41.6 % (30.3-42.9) 12/03/16 23:20 MCV 134 fl (79-97) H 12/03/16 23:20 MCH 29 pg (28-32) 12/03/16 23:20 MCHC 21 % (30-34) L 12/03/16 23:20 RDW 21.1 % (13.2-15.2) H 12/03/16 23:20 Plt Count 145 K/mm3 (140-440) 12/03/16 23:20 Add Manual Diff Complete 12/03/16 23:20 Total Counted 100 12/03/16 23:20 Seg Neuts % (Manual) 69.0 % (40.0-70.0) 12/03/16 23:20 Band Neutrophils % 6.0 % 12/03/16 23:20 Lymphocytes % (Manual) 16.0 % (13.4-35.0) 12/03/16 23:20 Reactive Lymphs % (Man) 0 % 12/03/16 23:20 Monocytes % (Manual) 7.0 % (0.0-7.3) 12/03/16 23:20 Eosinophils % (Manual) 1.0 % (0.0-4.3) 12/03/16 23:20 Basophils % (Manual) 1.0 % (0.0-1.8) 12/03/16 23:20 Metamyelocytes % 0 % 12/03/16 23:20 Myelocytes % 0 % 12/03/16 23:20 Promyelocytes % 0 % 12/03/16 23:20 Blast Cells % 0 % 12/03/16 23:20 Nucleated RBC % Not Reportable 12/03/16 23:20 Seg Neutrophils # Man 14.7 K/mm3 (1.8-7.7) H 12/03/16 23:20 Band Neutrophils # 1.3 K/mm3 12/03/16 23:20 Lymphocytes # (Manual) 3.4 K/mm3 (1.2-5.4) 12/03/16 23:20 Abs React Lymphs (Man) 0.0 K/mm3 12/03/16 23:20 Monocytes # (Manual) 1.5 K/mm3 (0.0-0.8) H 12/03/16 23:20 Eosinophils # (Manual) 0.2 K/mm3 (0.0-0.4) 12/03/16 23:20 Basophils # (Manual) 0.2 K/mm3 (0.0-0.1) H 12/03/16 23:20 Metamyelocytes # 0.0 K/mm3 12/03/16 23:20 Myelocytes # 0.0 K/mm3 12/03/16 23:20 Promyelocytes # 0.0 K/mm3 12/03/16 23:20 Blast Cells # 0.0 K/mm3 12/03/16 23:20 WBC Morphology Not Reportable 12/03/16 23:20 Hypersegmented Neuts Not Reportable 12/03/16 23:20 Hyposegmented Neuts Not Reportable 12/03/16 23:20 Hypogranular Neuts Not Reportable 12/03/16 23:20 Smudge Cells Not Reportable 12/03/16 23:20 Toxic Granulation Not Reportable 12/03/16 23:20 Toxic Vacuolation Not Reportable 12/03/16 23:20 Dohle Bodies Not Reportable 12/03/16 23:20 Pelger-Huet Anomaly Not Reportable 12/03/16 23:20 Mary Rods Not Reportable 12/03/16 23:20 Platelet Estimate Appears normal 12/03/16 23:20 Clumped Platelets 1+ 12/03/16 23:20 Plt Clumps, EDTA Not Reportable 12/03/16 23:20 Large Platelets Not Reportable 12/03/16 23:20 Giant Platelets Not Reportable 12/03/16 23:20 Platelet Satelliting Not Reportable 12/03/16 23:20 Plt Morphology Comment Not Reportable 12/03/16 23:20 RBC Morphology Not Reportable 12/03/16 23:20 Dimorphic RBCs Not Reportable 12/03/16 23:20 Polychromasia Not Reportable 12/03/16 23:20 Hypochromasia 1+ 12/03/16 23:20 Poikilocytosis Not Reportable 12/03/16 23:20 Anisocytosis 1+ 12/03/16 23:20 Microcytosis Not Reportable 12/03/16 23:20 Macrocytosis Not Reportable 12/03/16 23:20 Spherocytes Not Reportable 12/03/16 23:20 Pappenheimer Bodies Not Reportable 12/03/16 23:20 Sickle Cells Not Reportable 12/03/16 23:20 Target Cells Not Reportable 12/03/16 23:20 Tear Drop Cells Not Reportable 12/03/16 23:20 Ovalocytes Not Reportable 12/03/16 23:20 Helmet Cells Not Reportable 12/03/16 23:20 Landers-Mendes Bodies Not Reportable 12/03/16 23:20 Madison Rings Not Reportable 12/03/16 23:20 Jerri Cells Not Reportable 12/03/16 23:20 Bite Cells Not Reportable 12/03/16 23:20 Crenated Cell Not Reportable 12/03/16 23:20 Elliptocytes Not Reportable 12/03/16 23:20 Acanthocytes (Spur) Not Reportable 12/03/16 23:20 Rouleaux Not Reportable 12/03/16 23:20 Hemoglobin C Crystals Not Reportable 12/03/16 23:20 Schistocytes Not Reportable 12/03/16 23:20 Malaria parasites Not Reportable 12/03/16 23:20 Michael Bodies Not Reportable 12/03/16 23:20 Hem Pathologist Commnt No 12/03/16 23:20 PT 17.7 Sec. (12.2-14.9) H 12/03/16 23:20 INR 1.46 (0.87-1.13) H 12/03/16 23:20 APTT 31.0 Sec. (24.2-36.6) 12/03/16 23:20 POC ABG pH 6.759 (7.35-7.45) L 12/04/16 01:19 POC ABG pCO2 38.8 (35-45) 12/04/16 01:19 POC ABG pO2 437 (80-105) H 12/04/16 01:19 POC ABG HCO3 5.5 12/04/16 01:19 POC ABG Total CO2 7 12/04/16 01:19 POC ABG O2 Sat 100 12/04/16 01:19 POC ABG Base Excess -30 12/04/16 01:19 FiO2 100 % 12/04/16 01:19 Sodium 124 mmol/L (137-145) L 12/03/16 23:20 Potassium 9.6 mmol/L (3.6-5.0) H* 12/03/16 23:20 Chloride 73.2 mmol/L (98-107) L 12/03/16 23:20 Carbon Dioxide 3 mmol/L (22-30) L* 12/03/16 23:20 Anion Gap 57 mmol/L 12/03/16 23:20 BUN 61 mg/dL (7-17) H 12/03/16 23:20 Creatinine 2.9 mg/dL (0.7-1.2) H 12/03/16 23:20 Estimated GFR 21 ml/min 12/03/16 23:20 BUN/Creatinine Ratio 21.03 % 12/03/16 23:20 Glucose 1175 mg/dL (65-100) H* 12/03/16 23:20 POC Glucose > 500 (70-105) H 12/03/16 23:58 Lactic Acid 13.20 mmol/L (0.7-2.0) H* 12/03/16 23:43 Calcium 8.7 mg/dL (8.4-10.2) 12/03/16 23:20 Phosphorus 15.70 mg/dL (2.5-4.5) H 12/04/16 01:36 Total Bilirubin < 0.20 mg/dL (0.1-1.2) 12/03/16 23:20 AST 28 units/L (5-40) 12/03/16 23:20 ALT 10 units/L (7-56) 12/03/16 23:20 Alkaline Phosphatase 181 units/L (35-129) H 12/03/16 23:20 Total Creatine Kinase 60 units/L (30-135) 12/03/16 23:20 Troponin T 0.026 ng/mL (0.00-0.029) 12/04/16 01:36 Total Protein 6.2 g/dL (6.3-8.2) L 12/03/16 23:20 Albumin 3.5 g/dL (3.9-5) L 12/03/16 23:20 Albumin/Globulin Ratio 1.3 % 12/03/16 23:20 TSH 1.600 mlU/mL (0.270-4.200) 12/03/16 23:20 Blood Type O POSITIVE 12/03/16 23:43 Antibody Screen TNR 12/03/16 23:43 ISAIAH Antibody Screen Negative 12/03/16 23:43 Assessment and Plan - Patient Problems (1) Cardiac arrest Current Visit: Yes Status: Acute Plan to address problem: Patient will be admitted to ICU continue on endotracheal tube and mechanical ventilation, patient will continue IV propofol to maintain sedation per protocol , patient will also continue IV amiodarone started in the emergency room because of cardiac arrest I will continue IV insulin drip by DKA protocol with Accu-Cheks every hour and basic metabolic panel checked every 2 hours. Patient will be on IV normal saline at 200 mL an hour per DKA protocol and the fluid will be changed to IV D5 half-normal saline when the blood sugar is below 2 50 mg/dL. Patient will be on IV Zosyn for 450 gm every 6 hours I will have critical-care consult with Dr. Gonzalez as well as nephrology consult with Dr. Mitchell will continue cardiology consult with Dr. Stahl. DVT prophylaxis will be provided by sequential compressive device and patient will have respiratory therapy take care of the ventilator patient will have cardiac enzyme involving troponin total CK and CK-MB checked every 6 hours 2 more levels (2) Acute renal failure Current Visit: No Status: Acute Qualifiers: Acute renal failure type: A (3) Acute respiratory failure with hypoxemia Current Visit: No Status: Acute (4) Altered mental status Current Visit: No Status: Acute Qualifiers: Altered mental status type: unspecified Coma depth: C Coma timing: C Qualified Code(s): R41.82 - Altered mental status, unspecified (5) DKA (diabetic ketoacidoses) Current Visit: No Status: Acute Qualifiers: Diabetes mellitus type: type 1 Diabetes mellitus complication detail: with coma 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
[2016-12-04] MEDS ORDERED: NARCAN 2 MG/2 ML ONE (02:30)
[2016-12-04] MEDS ORDERED: CALCIUM CHLORIDE IV ONE ×2 (02:30→08:00)
[2016-12-04] MEDS ORDERED: CORDARONE IV ONE (02:30)
[2016-12-04] MEDS ORDERED: SODIUM BICARBONATE IV ONE (02:30)
[2016-12-04] MEDS ORDERED: ADRENALIN ONE (02:30)
[2016-12-04 02:34] LABS: Magnesium 4.3 mg/dL (1.7-2.3)
[2016-12-04] MEDS ORDERED: MAGNESIUM SULFATE 2GM/50ML 2 GM/50 ML BAG IV ONE (02:42)
--- NOTE | 2016-12-04 02:52 | Cat Scan Report ---
FINAL REPORT PROCEDURE: CT HEAD/BRAIN WO CON TECHNIQUE: Computerized tomography of the head was performed without contrast material. HISTORY: Altered Mental Status COMPARISON: 11/08/2016 FINDINGS: Skull and scalp: Normal. Paranasal sinuses: Mild opacification of the ethmoid sinuses. Ventricles and subarachnoid spaces: Normal. Cerebrum: No evidence of hemorrhage, acute infarction or mass . Cerebellum and brainstem: No evidence of hemorrhage, acute infarction or mass. Vasculature: Normal. Comments: None. IMPRESSION: There is no evidence of an acute intracranial process.
[2016-12-04] MEDS ORDERED: VANCOMYCIN/NS 1 GM/250 ML 1 GM/250 ML BAG IV ONE ×2 (03:00)
[2016-12-04 04:32] LABS: BUN/Creatinine Ratio 19.64; Calcium 9.6 mg/dL (8.4-10.2); Chloride 91.4 mmol/L (98-107)
[2016-12-04 05:58] LABS: ISTAT Base Excess -19; ISTAT HCO3 9.7; ISTAT PCO2 27.5 (35-45); ISTAT PH 7.154 (7.35-7.45); ISTAT PO2 111 (80-105); ISTAT SO2 97; ISTAT TCO2 11
--- NOTE | 2016-12-04 07:50 | Admit Criteria Form ---
Admission Criteria Documentation: RESPIRATORY FAILURE GRG Clinical Indications for Admission to Inpatient Care (Place 'X' for any and all applicable criteria): Hospital admission is needed for appropriate care of the patient because of acute respiratory failure or insufficiency as indicated by ANY ONE of the following(1)(2)(3)(4)(5)(6)(7)(8): [X ]I. Mechanical ventilation needed (acute invasive or noninvasive) [ ]II. Severe ventilation deficit as indicated by ANY ONE of the following (9) [ ]a) Respiratory acidosis (pH less than 7.32 and partial pressure of carbon dioxide greater than 40 mm Hg (5.3 kPa)) [ ]b) Partial pressure of carbon dioxide greater than 44 mm Hg (5.9 kPa ) (new) [ ]c) Airflow measurements less than 25% of predicted (eg, peak expiratory flow rate less than 100 L/minute) [ ]d) Forced vital capacity less than 15 mL/kg of ideal body weight, or 50% decrease in vital capacity from baseline [ ]III. Noncardiac pulmonary edema not resolving with rapid emergency treatment (8) [ ]IV. Severe respiratory distress as indicated by ANY ONE of the following: [ ]a) Severe tachypnea (respiratory rate greater than 30, greater than 45 for 6-month-old, greater than 60 for ) [ ]b) Severe hypoxemia (partial pressure of oxygen less than 50 mm Hg ( 6.7 kPa) on greater than 50% oxygen or partial pressure of oxygen to FIO2 ratio less than 200) [ ]c) Mental status deterioration from respiratory disease [ ]V. Airway obstruction or inadequate protection [A](10)(11) The original [employer] content created by [employer] has been revised. The portions of the content which have been revised are identified through the use of italic text or in bold, and [email or web address] has neither reviewed nor approved the modified material. All other unmodified content is copyright [employer]. Please see references footnoted in the original [employer] edition 2016 Admission Criteria Met: Yes
[2016-12-04] MEDS: DIPRIVAN 10 MG/ML 1,000 MG/100 ML BOTTLE IV SCH (07:55)
[2016-12-04 08:15] LABS: Mean Corpuscular HGB Conc 28 % (30-34); Mean Corpuscular Hemoglobin 29 pg (28-32); Red Cell Distribution Width 19.2 % (13.2-15.2); White Blood Count 5.6 K/mm3 (4.5-11.0)
[2016-12-04 08:24] LABS: BUN/Creatinine Ratio 18.27; Calcium 8.9 mg/dL (8.4-10.2); Chloride 100.6 mmol/L (98-107); Potassium 3.3 mmol/L (3.6-5.0)
[2016-12-04 08:31] LABS: Creatine Kinase MB 3.4 ng/mL (0.0-4.0)
[2016-12-04 08:34] LABS: Creatine Kinase 112 units/L (30-135)
[2016-12-04 08:43] LABS: Hemoglobin 8.5 gm/dl (10.1-14.3)
[2016-12-04 08:49] LABS: Hematocrit 30.2 % (30.3-42.9); Mean Corpuscular Volume 105 fl (79-97); Platelet Count 337 K/mm3 (140-440)
--- NOTE | 2016-12-04 09:08 | Progress Note ---
Assessment and Plan Acute respiratory failure vent weaning per pulmonary Cardiac arrest PEA arrest-->V. fib/?torsades-->shocked twice, received amiodarone 300 mg continue amiodarone gtt Echo 11/2016: EF 40-45%, await repeat Abnormal EKG/ST elevation Given pt.'s condition, resolution of ST elevation and recent subarachnoid bleed pt. not a candidate for cardiac cath DKA Hyperkalemia Acute on chronic renal failure Anemia Recent subarachnoid hemorrhage Altered mental status Continue current management. Wean pressors to maintain MAP > 65. Await echo findings. The patient has been seen in conjunction with Dr. Mora who agrees with the assessment and plan of care. Subjective Date of service: 12/04/16 Principal diagnosis: DKA, cardiac arrest Interval history: The patient is intubated and sedated. Sinus tach with HR 140s on the monitor. Levophed at 15 mcg/min. Objective Last Vital Signs Temp 98.4 F 12/04/16 03:21 Pulse 134 H 12/04/16 08:00 Resp 17 12/04/16 08:00 BP 100/51 12/04/16 08:00 Pulse Ox 100 12/04/16 08:00 - Physical Examination General: No Apparent Distress (intubated, sedated ) HEENT: Positive: Normocephaly Neck: Positive: neck supple, trachea midline Cardiac: Positive: Regular Rhythm, S1/S2, Tachycardia Lungs: Positive: clear to auscultation Neuro: Positive: Other (intubated, sedated) Abdomen: Positive: Soft Skin: Negative: Rash Extremities: Present: normal. Absent: edema - Labs and Meds Cardiac Enzymes 12/04/16 Range/Units 07:55 CK-MB (CK-2) 3.4 (0.0-4.0) ng/mL CBC 12/04/16 Range/Units 07:55 WBC 5.6 (4.5-11.0) K/mm3 RBC 2.90 L (3.65-5.03) M/mm3 Hgb 8.5 L (10.1-14.3) gm/dl Hct 30.2 L D (30.3-42.9) % Plt Count 337 D (140-440) K/mm3 Comprehensive Metabolic Panel 12/04/16 12/04/16 Range/Units 04:00 07:55 Sodium 137 D 141 (137-145) mmol/L Potassium 4.0 D 3.3 L (3.6-5.0) mmol/L Chloride 91.4 L 100.6 (98-107) mmol/L Carbon Dioxide 8 L* 9 L* (22-30) mmol/L BUN 55 H 53 H (7-17) mg/dL Creatinine 2.8 H 2.9 H (0.7-1.2) mg/dL Glucose 1610 H* 1229 H* (65-100) mg/dL Calcium 9.6 8.9 (8.4-10.2) mg/dL - Imaging and Cardiology Echo: report reviewed (11/2016: EF 40-45%) - Telemetry EKG Rhythm: Sinus Tachycardia
--- NOTE | 2016-12-04 09:10 | XRay Report ---
Single view chest: Compared to 6 less than 02/21. History caught in metal status. Findings: Normal cardiomediastinal silhouette. Trachea is midline. Tip of endotracheal tube in proximal right mainstem bronchus. Should be withdrawn approximately 4 cm. Tip of NG tube in stomach. No consolidation, pneumothorax or pleural effusion. Impression: Tip of endotracheal tube should be withdrawn as mentioned above.
--- NOTE | 2016-12-04 09:11 | XRay Report ---
Single view chest: Compared to . History: AMS. Findings: Normal cardiomediastinal silhouette. Trachea is midline. Tip of endotracheal tube and NG tube in normal position. No consolidation, pneumothorax or pleural effusion. Impression: No acute cardiopulmonary findings.
[2016-12-04] MEDS: PEPCID IV SCH (09:18)
--- NOTE | 2016-12-04 09:27 | Consultation ---
History of Present Illness - Reason for Consult acute renal failure, hyperkalemia - History of Present Illness patient with h/o DM with poor compliance brought to the ED yesterday by EMS after was noted to be confused by her family, in the ED her lab worked showed severe hyperglycemia and hyperkalemia and was strated on DKA protocol, in the ED she went into cardiac arrest and required CPR. I was called by ER MD regarding hyperkalemia, I explained to her that we can hold on emergent HD because she was hemodynamically unstable and will need to eval response to insulin drip. when seen patient was sedated and intubated and not able to provide history, no family at bedside. Past History Past Medical History: anemia, diabetes, hypertension, hyperlipidemia, renal failure Past Surgical History: No surgical history Social history: no significant social history Family history: no significant family history Medications and Allergies Allergies Allergy/AdvReac Type Severity Reaction Status Date / Time No Known Allergies Allergy Verified 12/03/16 23:01 Home Medications Medication Instructions Recorded Confirmed Last Taken Type Calcium Carbonate [Oscal] 1,250 mg PO BID #60 tablet 11/08/16 Unknown Rx Insulin NPH/Regular [NovoLIN 70/30] 10 unit SUB-Q BIDDIAB 30 Days 11/08/16 Unknown Rx Metoprolol [Lopressor TAB] 12.5 mg PO BID #60 tablet 11/08/16 Unknown Rx Metoprolol [Lopressor TAB] 25 mg PO BID #60 tablet 11/08/16 Unknown Rx Pantoprazole [Protonix TAB] 40 mg PO QDAY #30 tablet 11/08/16 Unknown Rx Active Meds: Active Medications Famotidine (Pepcid) 20 mg IV DAILY ULI Last Admin: 12/04/16 09:18 Dose: 20 mg Hydrophilic Ointment (Vaseline Lip Therapy) 1 applic TP Q2HR PRN PRN Reason: Dry Lips Propofol (Diprivan 10 Mg/Ml) 1,000 mg in 100 mls @ 1.633 mls/hr IV TITR ULI; 5 MCG/KG/MIN PRN Reason: Protocol Amiodarone HCl 900 mg/ (Dextrose) 500 mls @ 33.33 mls/hr IV DIRECT ULI; 1 MG /MIN PRN Reason: Protocol Last Admin: 12/04/16 01:25 Dose: 1 mg/min, 33.33 mls/hr Insulin Human Regular 100 (units/ Sodium Chloride) 100 mls @ 1 mls/hr IV TITR ULI; 1 UNITS/HR PRN Reason: Protocol Last Titration: 12/04/16 07:11 Dose: 40 units/hr, 40 mls/hr Norepinephrine 8 mg/ Sodium (Chloride) 250 mls @ 3.75 mls/hr IV TITR ULI; 2 MCG /MIN PRN Reason: Protocol Last Admin: 12/04/16 01:21 Dose: 59.73 mcg/min, 112 mls/hr Potassium Chloride (Kcl 20meq/100ml) 20 meq in 100 mls @ 100 mls/hr IV Q1H ULI Stop: 12/04/16 11:59 Sodium Chloride (Nacl 0.45% 1000 Ml) 1,000 mls @ 150 mls/hr IV DIRECT ULI Review of Systems ROS unobtainable: due to mental status All systems: negative Exam - Vital Signs Vital signs: Vital Signs Pulse Resp BP 111 H 12 120/82 12/03/16 23:03 12/03/16 23:03 12/03/16 23:03 - General Appearance General appearance: sedated on ventilator, intubated EENT: ATNC, PERRL, mucous membranes dry Neck: Present: neck supple Respiratory: Decreased Breath Sounds Heart: irregular, tachycardia Gastrointestinal: Present: hypoactive bowel sounds Integumentary: no rash, warm and dry Neurologic: other (sedated) Musculoskeletal: Present: other (no edema in BLE) Psychiatric: other (sedated and intubated) Results - Lab Results 12/04/16 07:55 12/04/16 07:55 Most recent lab results Calcium 8.9 mg/dL (8.4-10.2) 12/04/16 07:55 Phosphorus 15.70 mg/dL (2.5-4.5) H 12/04/16 01:36 Magnesium 4.30 mg/dL (1.7-2.3) H 12/04/16 01:36 Assessment and Plan - Patient Problems (1) Cardiac arrest Current Visit: Yes Status: Acute Plan to address problem: followed by cardiology, not a candidate for [facility] (2) DKA (diabetic ketoacidoses) Current Visit: No Status: Acute Qualifiers: Diabetes mellitus type: type 1 Diabetes mellitus complication detail: with coma Diabetes mellitus intermediate insulin use: D Qualified Code(s): E10.11 - Type 1 diabetes mellitus with ketoacidosis with coma Plan to address problem: on insulin gtt currently acidotic with AG but improving close monitoring for K, Phos and Mg (3) Acute hypernatremia Current Visit: No Status: Acute Plan to address problem: will corrected Na ~ 156, will change IVF to 1/2 150 cc/h (4) Acute kidney failure with tubular necrosis Current Visit: No Status: Acute Plan to address problem: secondary to ischemic ATN from shock no indication for [employer] PARALEGAL corona placed but no UOP reorded will order renal US and urine lytes strict I&O daily weight renal diet (5) Hyperkalemia Current Visit: No Status: Resolved Plan to address problem: resolved with insulin gtt (6) Respiratory failure Current Visit: No Status: Resolved Qualifiers: Chronicity: acute Respiratory failure complication: unspecified whether with hypoxia or hypercapnia Qualified Code(s): J96.00 - Acute respiratory failure, unspecified whether with hypoxia or hypercapnia Plan to address problem: vent management per primary team
[2016-12-04 09:45] LABS: Cholesterol 221 mg/dL (50-199); HDL Cholesterol 37 mg/dL (40-59); LDL Cholesterol,Direct TNR mg/dL (50-130); Triglycerides 570 mg/dL (2-149)
[2016-12-04] MEDS ORDERED: NACL 0.45% 1000 ML 1,000 ML IV SCH (10:00)
[2016-12-04] MEDS ORDERED: NAAC IV SCH (10:00)
[2016-12-04] MEDS ORDERED: NACL 0.45% IV SCH (10:00)
[2016-12-04 10:12] LABS: Basophils % (Manual) 0 % (0.0-1.8); Blastocytes % (Manual) 0 %; Eosinophils % (Manual) 0 % (0.0-4.3); Total Cells Counted Percent 0
[2016-12-04 10:13] LABS: Anisocytosis 1+; Diff Status Complete; Hypochromasia 1+
[2016-12-04] MEDS: KCL 20MEQ/100ML 20 MEQ/100 ML BAG IV SCH ×2 (10:30→11:54)
[2016-12-04 10:55] LABS: ISTAT Base Excess -20; ISTAT HCO3 7.6; ISTAT PCO2 18.8 (35-45); ISTAT PH 7.215 (7.35-7.45); ISTAT PO2 193 (80-105); ISTAT SO2 99; ISTAT TCO2 8
[2016-12-04 10:59] LABS: Creatine Kinase MB 4.6 ng/mL (0.0-4.0)
[2016-12-04 11:27] LABS: BUN/Creatinine Ratio 15.93; Calcium 10.4 mg/dL (8.4-10.2); Chloride 101.6 mmol/L (98-107); Potassium 3.1 mmol/L (3.6-5.0)
--- NOTE | 2016-12-04 11:47 | Consultation ---
History of Present Illness Consult date: 12/04/16 Requesting physician: NEELA VIGIL Reason for consult: other (Severe Sepsis; DKA) History of present illness: PULMONARY/CCM CONSULT NOTE (Full dictation # [id number]) Please see dictated notes for full details Past History Past Medical History: anemia, diabetes, hypertension, hyperlipidemia, renal failure Past Surgical History: No surgical history Social history: no significant social history Family history: no significant family history Medications and Allergies Allergies Allergy/AdvReac Type Severity Reaction Status Date / Time No Known Allergies Allergy Verified 12/03/16 23:01 Home Medications Medication Instructions Recorded Confirmed Last Taken Type Calcium Carbonate [Oscal] 1,250 mg PO BID #60 tablet 11/08/16 Unknown Rx Insulin NPH/Regular [NovoLIN 70/30] 10 unit SUB-Q BIDDIAB 30 Days 11/08/16 Unknown Rx Metoprolol [Lopressor TAB] 12.5 mg PO BID #60 tablet 11/08/16 Unknown Rx Metoprolol [Lopressor TAB] 25 mg PO BID #60 tablet 11/08/16 Unknown Rx Pantoprazole [Protonix TAB] 40 mg PO QDAY #30 tablet 11/08/16 Unknown Rx HumaLOG VIAL See Protocol SQ ACHS PRN 12/04/16 12/04/16 Unknown History Lantus VIAL 12/04/16 Unknown History Active Meds: Active Medications Famotidine (Pepcid) 20 mg IV DAILY ULI Last Admin: 12/04/16 09:18 Dose: 20 mg Hydrophilic Ointment (Vaseline Lip Therapy) 1 applic TP Q2HR PRN PRN Reason: Dry Lips Propofol (Diprivan 10 Mg/Ml) 1,000 mg in 100 mls @ 1.633 mls/hr IV TITR ULI; 5 MCG/KG/MIN PRN Reason: Protocol Amiodarone HCl 900 mg/ (Dextrose) 500 mls @ 33.33 mls/hr IV DIRECT ULI; 1 MG /MIN PRN Reason: Protocol Last Admin: 12/04/16 01:25 Dose: 1 mg/min, 33.33 mls/hr Insulin Human Regular 100 (units/ Sodium Chloride) 100 mls @ 1 mls/hr IV TITR ULI; 1 UNITS/HR PRN Reason: Protocol Last Titration: 12/04/16 07:11 Dose: 40 units/hr, 40 mls/hr Norepinephrine 8 mg/ Sodium (Chloride) 250 mls @ 3.75 mls/hr IV TITR ULI; 2 MCG /MIN PRN Reason: Protocol Last Admin: 12/04/16 01:21 Dose: 59.73 mcg/min, 112 mls/hr Potassium Chloride (Kcl 20meq/100ml) 20 meq in 100 mls @ 100 mls/hr IV Q1H ULI Stop: 12/04/16 11:59 Last Admin: 12/04/16 10:30 Dose: 100 mls/hr Sodium Chloride (Nacl 0.45% 1000 Ml) 1,000 mls @ 150 mls/hr IV DIRECT ULI Physical Examination Vital signs: Vital Signs Pulse Resp BP 111 H 12 120/82 12/03/16 23:03 12/03/16 23:03 12/03/16 23:03 Results - Laboratory Findings CBC and BMP: 12/04/16 07:55 12/04/16 13:00 ABG POC ABG pH 7.215 (7.35-7.45) L 12/04/16 10:37 POC ABG pCO2 18.8 (35-45) L 12/04/16 10:37 POC ABG pO2 193 (80-105) H 12/04/16 10:37 POC ABG HCO3 7.6 12/04/16 10:37 POC ABG Total CO2 8 12/04/16 10:37 POC ABG O2 Sat 99 12/04/16 10:37 PT/INR, D-dimer PT 17.7 Sec. (12.2-14.9) H 12/03/16 23:20 INR 1.46 (0.87-1.13) H 12/03/16 23:20 Abnormal lab findings: Abnormal Labs 12/04/16 12/04/16 12/04/16 01:19 01:36 02:21 RBC Hgb Hct MCV MCHC RDW Lymphocytes % (Manual) Lymphocytes # (Manual) POC ABG pH 6.759 L POC ABG pCO2 POC ABG pO2 437 H Potassium Chloride Carbon Dioxide BUN Creatinine Glucose POC Glucose > 500 H Calcium Phosphorus 15.70 H Magnesium 4.30 H CK-MB (CK-2) Troponin T Triglycerides Cholesterol HDL Cholesterol 12/04/16 12/04/16 12/04/16 03:55 04:00 05:11 RBC Hgb Hct MCV MCHC RDW Lymphocytes % (Manual) Lymphocytes # (Manual) POC ABG pH POC ABG pCO2 POC ABG pO2 Potassium Chloride 91.4 L Carbon Dioxide 8 L* BUN 55 H Creatinine 2.8 H Glucose 1610 H* POC Glucose > 500 H > 500 H Calcium Phosphorus Magnesium CK-MB (CK-2) Troponin T Triglycerides Cholesterol HDL Cholesterol 12/04/16 12/04/16 12/04/16 05:40 05:54 06:58 RBC Hgb Hct MCV MCHC RDW Lymphocytes % (Manual) Lymphocytes # (Manual) POC ABG pH 7.154 L POC ABG pCO2 27.5 L POC ABG pO2 111 H Potassium Chloride Carbon Dioxide BUN Creatinine Glucose POC Glucose > 500 H > 500 H Calcium Phosphorus Magnesium CK-MB (CK-2) Troponin T Triglycerides Cholesterol HDL Cholesterol 12/04/16 12/04/16 12/04/16 07:55 07:55 07:55 RBC 2.90 L Hgb 8.5 L Hct 30.2 L D MCV 105 H D MCHC 28 L RDW 19.2 H Lymphocytes % (Manual) 11.0 L Lymphocytes # (Manual) 0.6 L POC ABG pH POC ABG pCO2 POC ABG pO2 Potassium 3.3 L Chloride Carbon Dioxide 9 L* BUN 53 H Creatinine 2.9 H Glucose 1229 H* POC Glucose Calcium Phosphorus Magnesium CK-MB (CK-2) Troponin T 0.111 H* D Triglycerides 570 H Cholesterol 221 H HDL Cholesterol 37 L 12/04/16 12/04/16 12/04/16 09:55 09:55 09:55 RBC Hgb Hct MCV MCHC RDW Lymphocytes % (Manual) Lymphocytes # (Manual) POC ABG pH POC ABG pCO2 POC ABG pO2 Potassium 3.1 L Chloride Carbon Dioxide 7 L* BUN 51 H Creatinine 3.2 H Glucose 969 H* POC Glucose Calcium 10.4 H D Phosphorus Magnesium 3.70 H CK-MB (CK-2) 4.6 H Troponin T 0.140 H* D Triglycerides Cholesterol HDL Cholesterol 12/04/16 10:37 RBC Hgb Hct MCV MCHC RDW Lymphocytes % (Manual) Lymphocytes # (Manual) POC ABG pH 7.215 L POC ABG pCO2 18.8 L POC ABG pO2 193 H Potassium Chloride Carbon Dioxide BUN Creatinine Glucose POC Glucose Calcium Phosphorus Magnesium CK-MB (CK-2) Troponin T Triglycerides Cholesterol HDL Cholesterol
--- NOTE | 2016-12-04 11:58 | Progress Note ---
Assessment and Plan Assessment and plan: Admitted today The patient is a 46-year-old woman with history of insulin-dependent diabetes mellitus, hypertension, recent SAH and dyslipidemia who presented with DKA, AMS and STEMI with V. fib arrest requiring IV amiodarone suppression. She is currently intubated. She has a right groin triple-lumen catheter, Short, NG tube, ET tube, she is on IV insulin drip for documented DKA without ketones documentation but she was acidotic on admission. Also, she is on 12 mcg of Levophed, IV vancomycin, 200 mL/hr normal saline, amiodarone drip and propofol drip. -Cardiac arrest with V. fib, currently on amiodarone drip -Acute hypoxic respiratory failure, intubated -Cardiac arrest was STEMI: Cardiology following -Suspected DKA: Insulin drip -Acidosis, treated DKA -Acute metabolic encephalopathy -Leukocytosis on IV vancomycin, unclear reason, cxr read as no pneumothorax, pneumonia or pleural effusion. We'll order blood cultures, UA -DVT prophylaxis: SCDs only due to recent SAH History Interval history: Patient seen and examined. Follow up on cardiac arrest, admitted today. Imaging , old records, testing, labs, nursing notes reviewed. Hospitalist Physical - Physical exam Narrative exam: GEN: Intubated, ETT in place, CVS: regular, +3/6 murmur, NORMAL S1S2 LUNGS/CHEST: irregular chest inspiration, GOOD AIR ENTRY B ABD: SOFT, pbs NEURO: sedated - Constitutional Vitals: Temp Pulse Resp BP Pulse Ox 100.2 F H 142 H 35 H 99/52 100 12/04/16 08:00 12/04/16 11:00 12/04/16 11:00 12/04/16 11:00 12/04/16 11:00 General appearance: Present: severe distress Results - Labs CBC & Chem 7: 12/04/16 07:55 12/04/16 09:55 Labs: Laboratory Last Values WBC 5.6 K/mm3 (4.5-11.0) 12/04/16 07:55 RBC 2.90 M/mm3 (3.65-5.03) L 12/04/16 07:55 Hgb 8.5 gm/dl (10.1-14.3) L 12/04/16 07:55 Hct 30.2 % (30.3-42.9) L D 12/04/16 07:55 MCV 105 fl (79-97) H D 12/04/16 07:55 MCH 29 pg (28-32) 12/04/16 07:55 MCHC 28 % (30-34) L 12/04/16 07:55 RDW 19.2 % (13.2-15.2) H 12/04/16 07:55 Plt Count 337 K/mm3 (140-440) D 12/04/16 07:55 Add Manual Diff Complete 12/04/16 07:55 Total Counted 100 12/04/16 07:55 Seg Neuts % (Manual) 63.0 % (40.0-70.0) 12/04/16 07:55 Band Neutrophils % 26.0 % 12/04/16 07:55 Lymphocytes % (Manual) 11.0 % (13.4-35.0) L 12/04/16 07:55 Reactive Lymphs % (Man) 0 % 12/04/16 07:55 Monocytes % (Manual) 0 % (0.0-7.3) 12/04/16 07:55 Eosinophils % (Manual) 0 % (0.0-4.3) 12/04/16 07:55 Basophils % (Manual) 0 % (0.0-1.8) 12/04/16 07:55 Metamyelocytes % 0 % 12/04/16 07:55 Myelocytes % 0 % 12/04/16 07:55 Promyelocytes % 0 % 12/04/16 07:55 Blast Cells % 0 % 12/04/16 07:55 Nucleated RBC % Not Reportable 12/04/16 07:55 Seg Neutrophils # Man 3.5 K/mm3 (1.8-7.7) 12/04/16 07:55 Band Neutrophils # 1.5 K/mm3 12/04/16 07:55 Lymphocytes # (Manual) 0.6 K/mm3 (1.2-5.4) L 12/04/16 07:55 Abs React Lymphs (Man) 0.0 K/mm3 12/04/16 07:55 Monocytes # (Manual) 0.0 K/mm3 (0.0-0.8) 12/04/16 07:55 Eosinophils # (Manual) 0.0 K/mm3 (0.0-0.4) 12/04/16 07:55 Basophils # (Manual) 0.0 K/mm3 (0.0-0.1) 12/04/16 07:55 Metamyelocytes # 0.0 K/mm3 12/04/16 07:55 Myelocytes # 0.0 K/mm3 12/04/16 07:55 Promyelocytes # 0.0 K/mm3 12/04/16 07:55 Blast Cells # 0.0 K/mm3 12/04/16 07:55 WBC Morphology Not Reportable 12/04/16 07:55 Hypersegmented Neuts Not Reportable 12/04/16 07:55 Hyposegmented Neuts Not Reportable 12/04/16 07:55 Hypogranular Neuts Not Reportable 12/04/16 07:55 Smudge Cells Not Reportable 12/04/16 07:55 Toxic Granulation Not Reportable 12/04/16 07:55 Toxic Vacuolation Not Reportable 12/04/16 07:55 Dohle Bodies Not Reportable 12/04/16 07:55 Pelger-Huet Anomaly Not Reportable 12/04/16 07:55 Mary Rods Not Reportable 12/04/16 07:55 Platelet Estimate Appears normal 12/04/16 07:55 Clumped Platelets Not Reportable 12/04/16 07:55 Plt Clumps, EDTA Not Reportable 12/04/16 07:55 Large Platelets Not Reportable 12/04/16 07:55 Giant Platelets Not Reportable 12/04/16 07:55 Platelet Satelliting Not Reportable 12/04/16 07:55 Plt Morphology Comment Not Reportable 12/04/16 07:55 RBC Morphology Not Reportable 12/04/16 07:55 Dimorphic RBCs Not Reportable 12/04/16 07:55 Polychromasia Not Reportable 12/04/16 07:55 Hypochromasia 1+ 12/04/16 07:55 Poikilocytosis Not Reportable 12/04/16 07:55 Anisocytosis 1+ 12/04/16 07:55 Microcytosis Not Reportable 12/04/16 07:55 Macrocytosis Not Reportable 12/04/16 07:55 Spherocytes Not Reportable 12/04/16 07:55 Pappenheimer Bodies Not Reportable 12/04/16 07:55 Sickle Cells Not Reportable 12/04/16 07:55 Target Cells Not Reportable 12/04/16 07:55 Tear Drop Cells Not Reportable 12/04/16 07:55 Ovalocytes Not Reportable 12/04/16 07:55 Helmet Cells Not Reportable 12/04/16 07:55 [place] Bodies Not Reportable 12/04/16 07:55 Godfrey Rings Not Reportable 12/04/16 07:55 Jerri Cells Not Reportable 12/04/16 07:55 Bite Cells Not Reportable 12/04/16 07:55 Crenated Cell Not Reportable 12/04/16 07:55 Elliptocytes Not Reportable 12/04/16 07:55 Acanthocytes (Spur) Not Reportable 12/04/16 07:55 Rouleaux Not Reportable 12/04/16 07:55 Hemoglobin C Crystals Not Reportable 12/04/16 07:55 Schistocytes Not Reportable 12/04/16 07:55 Malaria parasites Not Reportable 12/04/16 07:55 Michael Bodies Not Reportable 12/04/16 07:55 Hem Pathologist Commnt No 12/04/16 07:55 PT 17.7 Sec. (12.2-14.9) H 12/03/16 23:20 INR 1.46 (0.87-1.13) H 12/03/16 23:20 APTT 31.0 Sec. (24.2-36.6) 12/03/16 23:20 POC ABG pH 7.215 (7.35-7.45) L 12/04/16 10:37 POC ABG pCO2 18.8 (35-45) L 12/04/16 10:37 POC ABG pO2 193 (80-105) H 12/04/16 10:37 POC ABG HCO3 7.6 12/04/16 10:37 POC ABG Total CO2 8 12/04/16 10:37 POC ABG O2 Sat 99 12/04/16 10:37 POC ABG Base Excess -20 12/04/16 10:37 FiO2 40 % 12/04/16 10:37 Sodium 144 mmol/L (137-145) 12/04/16 09:55 Potassium 3.1 mmol/L (3.6-5.0) L 12/04/16 09:55 Chloride 101.6 mmol/L (98-107) 12/04/16 09:55 Carbon Dioxide 7 mmol/L (22-30) L* 12/04/16 09:55 Anion Gap 39 mmol/L 12/04/16 09:55 BUN 51 mg/dL (7-17) H 12/04/16 09:55 Creatinine 3.2 mg/dL (0.7-1.2) H 12/04/16 09:55 Estimated GFR 19 ml/min 12/04/16 09:55 BUN/Creatinine Ratio 15.93 % 12/04/16 09:55 Glucose 969 mg/dL (65-100) H* 12/04/16 09:55 POC Glucose > 500 (70-105) H 12/04/16 06:58 Lactic Acid 13.20 mmol/L (0.7-2.0) H* 12/03/16 23:43 Calcium 10.4 mg/dL (8.4-10.2) H D 12/04/16 09:55 Phosphorus 15.70 mg/dL (2.5-4.5) H 12/04/16 01:36 Magnesium 3.70 mg/dL (1.7-2.3) H 12/04/16 09:55 Total Bilirubin < 0.20 mg/dL (0.1-1.2) 12/03/16 23:20 AST 28 units/L (5-40) 12/03/16 23:20 ALT 10 units/L (7-56) 12/03/16 23:20 Alkaline Phosphatase 181 units/L (35-129) H 12/03/16 23:20 Total Creatine Kinase 123 units/L (30-135) 12/04/16 09:55 CK-MB (CK-2) 4.6 ng/mL (0.0-4.0) H 12/04/16 09:55 CK-MB (CK-2) Rel Index 3.7 (0-4) 12/04/16 09:55 Troponin T 0.140 ng/mL (0.00-0.029) H* D 12/04/16 09:55 Total Protein 6.2 g/dL (6.3-8.2) L 12/03/16 23:20 Albumin 3.5 g/dL (3.9-5) L 12/03/16 23:20 Albumin/Globulin Ratio 1.3 % 12/03/16 23:20 Triglycerides 570 mg/dL (2-149) H 12/04/16 07:55 Cholesterol 221 mg/dL (50-199) H 12/04/16 07:55 LDL Cholesterol Direct TNR 12/04/16 07:55 HDL Cholesterol 37 mg/dL (40-59) L 12/04/16 07:55 Cholesterol/HDL Ratio 5.97 % 12/04/16 07:55 TSH 1.600 mlU/mL (0.270-4.200) 12/03/16 23:20 Blood Type O POSITIVE 12/03/16 23:43 Antibody Screen TNR 12/03/16 23:43 ISAIAH Antibody Screen Negative 12/03/16 23:43
[2016-12-04] MEDS ORDERED: NACL 0.9% 1000 ML 1,000 ML ONE (12:01)
[2016-12-04 12:13] LABS: Bilirubin,Urine NEG (Negative); Blood,Urine SM (Negative); Ketones,Urine TR mg/dL (Negative); Leukocyte Esterase,Urine NEG (Negative); Mucus,Urine FEW /HPF; Nitrite,Urine NEG (Negative); Sodium, Urine 26 mEq/L; Urobilinogen,Urine < 2.0 mg/dL (<2.0)
[2016-12-04 12:22] LABS: BUN/Creatinine Ratio 15.29; Calcium 10.2 mg/dL (8.4-10.2); Potassium 3.2 mmol/L (3.6-5.0)
[2016-12-04 14:09] LABS: BUN/Creatinine Ratio 15.8; Calcium 9.6 mg/dL (8.4-10.2); Chloride 109.1 mmol/L (98-107); Potassium 3.2 mmol/L (3.6-5.0)
[2016-12-04] MEDS: HEPARIN SUB-Q SCH ×2 (14:45→21:10)
[2016-12-04 15:13] LABS: BUN/Creatinine Ratio 16.33; Calcium 9.7 mg/dL (8.4-10.2); Chloride 108.1 mmol/L (98-107); Potassium 3.2 mmol/L (3.6-5.0)
[2016-12-04] MEDS: NACL 0.9% 1000 ML 1,000 ML IV SCH ×2 (15:37→18:36)
[2016-12-04] MEDS ORDERED: ARTIFICIAL TEARS OPHTH OINT OU PRN (16:23)
[2016-12-04] MEDS ORDERED: KCL 20MEQ/100ML 20 MEQ/100 ML BAG IV ONE (16:47)
[2016-12-04] MEDS ORDERED: fentaNYL DRIP Premix 2,000 MCG/100 ML BAG IV SCH (17:00)
[2016-12-04 17:58] LABS: ISTAT Base Excess -20; ISTAT HCO3 7.5; ISTAT PCO2 16.9 (35-45); ISTAT PH 7.255 (7.35-7.45); ISTAT PO2 169 (80-105); ISTAT SO2 99; ISTAT TCO2 8
[2016-12-04] MEDS: D5/0.45NS 1,000 ML IV SCH (18:36)
[2016-12-04] MEDS: MORPHINE IV PRN ×2 (18:37→21:06)
[2016-12-04 21:39] LABS: ISTAT Base Excess -18; ISTAT HCO3 8.1; ISTAT PCO2 16.7 (35-45); ISTAT PH 7.294 (7.35-7.45); ISTAT PO2 169 (80-105); ISTAT SO2 99; ISTAT TCO2 9
[2016-12-04 22:45] LABS: Urine Drugs of Abuse Note Disclamer
[2016-12-04] MEDS ORDERED: AMIDATE IV ONE (23:10)
[2016-12-04] MEDS ORDERED: ZEMURON IV ONE (23:10)
[2016-12-05] MEDS: D5/0.45NS 1,000 ML IV SCH (00:53)
[2016-12-05 03:41] LABS: BUN/Creatinine Ratio 14.37; Calcium 8.3 mg/dL (8.4-10.2); Chloride 113.8 mmol/L (98-107); Potassium 4.1 mmol/L (3.6-5.0)
[2016-12-05] MEDS: LEVOPHED 8 MG in NACL 0.9% 250ML 242 ML IV SCH ×3 (04:48→18:44)
[2016-12-05 05:00] LABS: Hematocrit 25.4 % (30.3-42.9); Mean Corpuscular HGB Conc 32 % (30-34); Mean Corpuscular Hemoglobin 28 pg (28-32); Mean Corpuscular Volume 87 fl (79-97); Platelet Count 218 K/mm3 (140-440); Red Blood Count 2.91 M/mm3 (3.65-5.03); Red Cell Distribution Width 17.8 % (13.2-15.2); White Blood Count 19.1 K/mm3 (4.5-11.0)
[2016-12-05 05:17] LABS: BUN/Creatinine Ratio 14.68; Calcium 8.3 mg/dL (8.4-10.2); Chloride 113.5 mmol/L (98-107); Potassium 3.8 mmol/L (3.6-5.0)
[2016-12-05] MEDS: TYLENOL PR PRN ×2 (05:38→15:38)
[2016-12-05] MEDS: ZOSYN/NS 2.25 GM/50ML 2.25 GM/50 ML BAG IV SCH ×3 (05:42→21:27)
[2016-12-05] MEDS ORDERED: ZOFRAN IV ONE (06:38)
[2016-12-05 06:50] LABS: Basophils % (Manual) 0 % (0.0-1.8); Blastocytes % (Manual) 0 %; Eosinophils % (Manual) 0 % (0.0-4.3)
[2016-12-05 06:51] LABS: Anisocytosis 1+; Diff Status Complete; Macrocytosis Rare
[2016-12-05] MEDS: HEPARIN SUB-Q SCH ×2 (09:12→21:27)
[2016-12-05] MEDS: PEPCID IV SCH (09:12)
--- NOTE | 2016-12-05 09:14 | XRay Report ---
Single view chest: Compared to 12/03/16. History: Followup of respiratory failure. Findings: Normal cardiomediastinal silhouette. Trachea is midline. Tip of endotracheal tube in normal position. Radiopaque density right perihilar area probably from confluence of ribs since not seen on the previous study obtained on 12/03/16. Thickening of the right horizontal fissure without interval change. Impression: No acute cardiopulmonary findings.
--- NOTE | 2016-12-05 09:33 | Progress Note ---
Assessment and Plan - Patient Problems (1) Cardiac arrest Current Visit: Yes Status: Acute Plan to address problem: followed by cardiology, not a candidate for intervention (2) DKA (diabetic ketoacidoses) Current Visit: No Status: Acute Qualifiers: Diabetes mellitus type: type 1 Diabetes mellitus complication detail: with coma Diabetes mellitus snf insulin use: D Qualified Code(s): E10.11 - Type 1 diabetes mellitus with ketoacidosis with coma Plan to address problem: on insulin gtt, improved hyperglycemia close monitoring for K, Phos and Mg. will replete phos with Kphos 30 mmol and repeat @ 1600 (3) Acute hypernatremia Current Visit: No Status: Acute Plan to address problem: will change iVF to D5W 100 cc/h (4) Acute kidney failure with tubular necrosis Current Visit: No Status: Acute Plan to address problem: secondary to ischemic ATN from shock Cr is slowly rising, oliguric, may require GEOLOGY TECHNICIAN within the next 24-48 if no improvement in UOP strict I&O daily weight renal diet (5) Hyperkalemia Current Visit: No Status: Resolved Plan to address problem: resolved with insulin gtt (6) Respiratory failure Current Visit: No Status: Resolved Qualifiers: Chronicity: acute Respiratory failure complication: unspecified whether with hypoxia or hypercapnia Qualified Code(s): J96.00 - Acute respiratory failure, unspecified whether with hypoxia or hypercapnia Plan to address problem: vent management per primary team Subjective Date of service: 12/05/16 Principal diagnosis: DKA, cardiac arrest Interval history: patient is intubated and sedated Objective - Vital Signs Vital signs: Vital Signs - 12hr 12/04/16 12/04/16 12/04/16 21:36 21:45 21:49 Temperature Pulse Rate 131 H 132 H Respiratory 35 H 35 H Rate Respiratory Rate [no pain] Blood Pressure 85/61 82/58 O2 Sat by Pulse 100 Oximetry 12/04/16 12/04/16 12/04/16 22:00 22:15 22:30 Temperature Pulse Rate 132 H 131 H 134 H Respiratory 35 H 35 H 35 H Rate Respiratory Rate [no pain] Blood Pressure 95/65 91/58 105/69 O2 Sat by Pulse Oximetry 12/04/16 12/04/16 12/04/16 22:45 23:00 23:15 Temperature Pulse Rate 135 H 135 H 137 H Respiratory 35 H 35 H 35 H Rate Respiratory Rate [no pain] Blood Pressure 111/70 115/73 111/72 O2 Sat by Pulse 100 100 100 Oximetry 12/04/16 12/04/16 12/04/16 23:24 23:30 23:34 Temperature 100.4 F H Pulse Rate 138 H 137 H Respiratory 35 H Rate Respiratory Rate [no pain] Blood Pressure 107/70 111/72 O2 Sat by Pulse 100 100 Oximetry 12/04/16 12/04/16 12/05/16 23:35 23:45 00:00 Temperature Pulse Rate 137 H 137 H 137 H Respiratory 35 H 35 H 35 H Rate Respiratory 32 H Rate [no pain] Blood Pressure 110/70 105/68 O2 Sat by Pulse 100 100 100 Oximetry 12/05/16 12/05/16 12/05/16 00:15 00:30 00:45 Temperature Pulse Rate 136 H 136 H 136 H Respiratory 35 H 35 H 35 H Rate Respiratory Rate [no pain] Blood Pressure 106/68 108/72 109/73 O2 Sat by Pulse 100 100 Oximetry 12/05/16 12/05/16 12/05/16 00:49 01:00 01:15 Temperature Pulse Rate 136 H 135 H 135 H Respiratory 35 H 35 H 35 H Rate Respiratory Rate [no pain] Blood Pressure 113/72 112/75 O2 Sat by Pulse 100 100 100 Oximetry 12/05/16 12/05/16 12/05/16 01:30 01:45 02:00 Temperature Pulse Rate 134 H 134 H 131 H Respiratory 35 H 35 H 31 H Rate Respiratory Rate [no pain] Blood Pressure 114/70 111/70 114/70 O2 Sat by Pulse 100 100 100 Oximetry 12/05/16 12/05/16 12/05/16 02:15 02:30 02:45 Temperature Pulse Rate 135 H 139 H 135 H Respiratory 35 H 35 H 35 H Rate Respiratory Rate [no pain] Blood Pressure 110/71 113/77 121/76 O2 Sat by Pulse 100 100 100 Oximetry 12/05/16 12/05/16 12/05/16 03:00 03:15 03:30 Temperature Pulse Rate 133 H 132 H 130 H Respiratory 35 H 35 H 35 H Rate Respiratory Rate [no pain] Blood Pressure 122/74 116/72 113/73 O2 Sat by Pulse 100 100 100 Oximetry 12/05/16 12/05/16 12/05/16 03:45 03:56 04:00 Temperature 102.9 F H Pulse Rate 128 H 127 H 126 H Respiratory 35 H 35 H Rate Respiratory Rate [no pain] Blood Pressure 112/70 112/70 114/73 O2 Sat by Pulse 100 Oximetry 12/05/16 12/05/16 12/05/16 04:05 04:15 04:30 Temperature Pulse Rate 127 H 125 H 125 H Respiratory 35 H 35 H 35 H Rate Respiratory Rate [no pain] Blood Pressure 112/71 112/72 O2 Sat by Pulse 100 Oximetry 12/05/16 12/05/16 12/05/16 04:45 05:00 05:15 Temperature Pulse Rate 129 H 124 H 124 H Respiratory 35 H 35 H 35 H Rate Respiratory Rate [no pain] Blood Pressure 92/57 92/57 105/65 O2 Sat by Pulse 100 100 Oximetry 12/05/16 12/05/16 12/05/16 05:30 05:38 05:45 Temperature Pulse Rate 123 H 129 H Respiratory 35 H 35 H 16 Rate Respiratory Rate [no pain] Blood Pressure 113/66 121/63 O2 Sat by Pulse 100 Oximetry 12/05/16 12/05/16 12/05/16 06:00 06:15 06:30 Temperature Pulse Rate 124 H 127 H 126 H Respiratory 35 H 35 H 35 H Rate Respiratory Rate [no pain] Blood Pressure 98/60 103/58 100/64 O2 Sat by Pulse 100 Oximetry 12/05/16 12/05/16 12/05/16 06:45 07:00 07:15 Temperature Pulse Rate 123 H 121 H 119 H Respiratory 35 H 35 H 35 H Rate Respiratory Rate [no pain] Blood Pressure 102/64 109/65 110/64 O2 Sat by Pulse Oximetry 12/05/16 12/05/16 12/05/16 07:30 07:45 08:00 Temperature 99.7 F H Pulse Rate 119 H 117 H 118 H Respiratory 35 H 35 H 35 H Rate Respiratory Rate [no pain] Blood Pressure 117/70 114/67 113/72 O2 Sat by Pulse 98 Oximetry 12/05/16 12/05/16 12/05/16 08:15 08:30 08:45 Temperature Pulse Rate 117 H 117 H 118 H Respiratory 35 H 35 H 35 H Rate Respiratory Rate [no pain] Blood Pressure 122/69 120/71 119/74 O2 Sat by Pulse Oximetry 12/05/16 12/05/16 12/05/16 08:48 09:00 09:15 Temperature Pulse Rate 118 H 120 H 118 H Respiratory 35 H 26 H Rate Respiratory Rate [no pain] Blood Pressure 120/71 128/79 125/77 O2 Sat by Pulse 100 Oximetry - General Appearance General appearance: sedated on ventilator, intubated EENT: PERRL Neck: no JVD, no carotid bruit Respiratory: Present: Clear to Ascultation Cardiology: regular, S1S2 Gastrointestinal: normoactive bowel sounds Integumentary: no rash, warm and dry Neurologic: other (does not follow commands) Musculoskeletal: other (trace pitting edema in BLE) Psychiatric: other (does not answer questions) - Lab 12/05/16 04:30 12/05/16 04:30 Most recent lab results Calcium 8.3 mg/dL (8.4-10.2) L 12/05/16 04:30 Phosphorus 1.00 mg/dL (2.5-4.5) L D 12/05/16 04:30 Magnesium 2.30 mg/dL (1.7-2.3) 12/05/16 04:30 Urine Creatinine 29.5 mg/dL (0.1-20.0) H 12/04/16 11:25 Urine Sodium 26 mEq/L 12/04/16 11:25 Urine Total Protein 33 mg/dL (5-11.8) H 12/04/16 11:25
[2016-12-05] MEDS ORDERED: D5W 1,000 ML IV SCH (10:00)
[2016-12-05] MEDS ORDERED: KPHOS 30 MMOL in NACL 0.9% 500 ML 500 ML IV ONE (10:00)
--- NOTE | 2016-12-05 10:02 | Ultrasound Report ---
Renal sonogram: History: Renal failure. Findings: Right kidney 11.1 x 5.4 x 5.4 cm. Cortical thickness 1.9 cm. Left kidney 10.6 x 4.9 x 5 cm. Cortical thickness 1.1 cm. Suspected mild bilateral dilatation of intrarenal collecting system. Impression: Suspected mild bilateral dilatation of intrarenal collecting system.
[2016-12-05 10:38] LABS: ISTAT Base Excess -12; ISTAT HCO3 12.2; ISTAT PCO2 17.6 (35-45); ISTAT PH 7.447 (7.35-7.45); ISTAT PO2 62 (80-105); ISTAT SO2 93; ISTAT TCO2 13
--- NOTE | 2016-12-05 10:53 | Progress Note ---
Assessment and Plan Acute respiratory failure vent weaning per pulmonary Cardiac arrest PEA arrest-->V. fib/?torsades-->shocked twice, received amiodarone 300 mg d/c amiodarone gtt Echo 11/2016: EF 40-45%, repeat echo EF 40 to 45% Abnormal EKG/ST elevation Given pt.'s condition, resolution of ST elevation and recent subarachnoid bleed pt. not a candidate for cardiac cath Hypotension on pressors wean off levo fed and continue IV hydration nstemi type 2 DKA Hyperkalemia Acute on chronic renal failure Anemia Recent subarachnoid hemorrhage Altered mental status Subjective Date of service: 12/05/16 Principal diagnosis: DKA, cardiac arrest Interval history: on sedation Objective Vital Signs Temp Pulse Pulse Resp Resp BP Pulse Ox 12/05/16 10:26 120 H 100 12/05/16 10:00 118 H 35 H 126/76 12/05/16 09:45 117 H 35 H 132/76 12/05/16 09:30 116 H 35 H 133/77 100 12/05/16 09:15 118 H 26 H 125/77 12/05/16 09:00 120 H 35 H 128/79 12/05/16 08:48 118 H 120/71 100 12/05/16 08:45 118 H 35 H 119/74 12/05/16 08:30 117 H 35 H 120/71 12/05/16 08:15 117 H 35 H 122/69 12/05/16 08:00 99.7 F H 118 H 35 H 113/72 98 12/05/16 07:45 117 H 35 H 114/67 12/05/16 07:30 119 H 35 H 117/70 12/05/16 07:15 119 H 35 H 110/64 12/05/16 07:00 121 H 35 H 109/65 12/05/16 06:45 123 H 35 H 102/64 12/05/16 06:30 126 H 35 H 100/64 12/05/16 06:15 127 H 35 H 103/58 12/05/16 06:00 124 H 35 H 98/60 100 12/05/16 05:45 129 H 16 121/63 100 12/05/16 05:38 35 H 12/05/16 05:30 123 H 35 H 113/66 12/05/16 05:15 124 H 35 H 105/65 12/05/16 05:00 124 H 35 H 92/57 100 12/05/16 04:45 129 H 35 H 92/57 100 12/05/16 04:30 125 H 35 H 112/72 12/05/16 04:15 125 H 35 H 112/71 12/05/16 04:05 127 H 35 H 100 12/05/16 04:00 126 H 35 H 114/73 12/05/16 03:56 127 H 112/70 100 12/05/16 03:45 102.9 F H 128 H 35 H 112/70 12/05/16 03:30 130 H 35 H 113/73 100 12/05/16 03:15 132 H 35 H 116/72 100 12/05/16 03:00 133 H 35 H 122/74 100 12/05/16 02:45 135 H 35 H 121/76 100 12/05/16 02:30 139 H 35 H 113/77 12/05/16 02:15 135 H 35 H 110/71 100 12/05/16 02:00 131 H 31 H 114/70 100 12/05/16 01:45 134 H 35 H 111/70 100 12/05/16 01:30 134 H 35 H 114/70 100 12/05/16 01:15 135 H 35 H 112/75 12/05/16 01:00 135 H 35 H 113/72 12/05/16 00:49 136 H 35 H 100 12/05/16 00:45 136 H 35 H 109/73 12/05/16 00:30 136 H 35 H 108/72 100 12/05/16 00:15 136 H 35 H 106/68 12/05/16 00:00 137 H 35 H 105/68 12/04/16 23:45 137 H 35 H 110/70 12/04/16 23:35 137 H 35 H 32 H 100 12/04/16 23:34 137 H 111/72 12/04/16 23:30 138 H 35 H 107/70 12/04/16 23:24 100.4 F H 12/04/16 23:15 137 H 35 H 111/72 12/04/16 23:00 135 H 35 H 115/73 12/04/16 22:45 135 H 35 H 111/70 100 12/04/16 22:30 134 H 35 H 105/69 12/04/16 22:15 131 H 35 H 91/58 12/04/16 22:00 132 H 35 H 95/65 12/04/16 21:49 132 H 82/58 100 12/04/16 21:45 131 H 35 H 85/61 12/04/16 21:36 35 H 12/04/16 21:30 132 H 35 H 82/58 12/04/16 21:25 132 H 35 H 100 12/04/16 21:15 132 H 35 H 86/56 82 L 12/04/16 21:06 28 H 12/04/16 21:00 135 H 17 105/66 99 12/04/16 20:45 137 H 28 H 105/66 12/04/16 20:30 137 H 41 H 104/64 12/04/16 20:15 136 H 23 106/72 12/04/16 20:10 135 H 32 H 32 H 12/04/16 20:00 135 H 28 H 105/67 12/04/16 19:55 134 H 113/67 12/04/16 19:45 135 H 28 H 113/67 12/04/16 19:40 97.8 F 12/04/16 19:30 133 H 32 H 108/64 12/04/16 19:15 133 H 35 H 107/67 12/04/16 19:00 133 H 35 H 101/63 12/04/16 18:45 133 H 35 H 101/57 12/04/16 18:30 133 H 35 H 96/58 12/04/16 18:15 137 H 35 H 107/66 12/04/16 18:00 135 H 35 H 91/67 12/04/16 17:45 134 H 35 H 106/65 12/04/16 17:30 133 H 35 H 91/53 12/04/16 17:15 128 H 34 H 103/60 12/04/16 17:09 133 H 108/65 12/04/16 17:00 132 H 35 H 108/65 12/04/16 16:45 130 H 35 H 100/61 12/04/16 16:30 130 H 35 H 90/55 100 12/04/16 16:15 129 H 35 H 96/55 100 12/04/16 16:00 99.2 F 128 H 35 H 89/47 100 12/04/16 15:45 131 H 35 H 94/50 12/04/16 15:30 133 H 35 H 86/45 12/04/16 15:15 133 H 35 H 93/48 12/04/16 15:00 135 H 35 H 91/49 12/04/16 14:50 132 H 35 H 83/46 12/04/16 14:40 132 H 35 H 88/46 100 12/04/16 14:30 133 H 35 H 96/44 12/04/16 14:20 133 H 35 H 82/48 12/04/16 14:10 134 H 35 H 92/43 12/04/16 14:00 135 H 35 H 92/46 12/04/16 13:50 133 H 35 H 90/47 12/04/16 13:40 133 H 35 H 90/49 12/04/16 13:30 131 H 28 H 89/50 12/04/16 13:20 134 H 35 H 100/52 12/04/16 13:10 133 H 35 H 97/50 12/04/16 13:00 132 H 35 H 95/52 12/04/16 12:50 135 H 35 H 99/54 12/04/16 12:40 137 H 35 H 102/51 12/04/16 12:30 137 H 35 H 95/51 12/04/16 12:28 140 H 96/52 12/04/16 12:20 141 H 35 H 96/52 12/04/16 12:10 140 H 35 H 100/40 12/04/16 12:00 99.5 F 142 H 35 H 92/49 12/04/16 11:50 141 H 35 H 77/42 12/04/16 11:40 142 H 35 H 98/50 12/04/16 11:30 141 H 35 H 96/49 12/04/16 11:20 142 H 35 H 97/45 12/04/16 11:10 143 H 35 H 88/52 12/04/16 11:00 142 H 35 H 99/52 100 - Physical Examination General: No Apparent Distress (intubated, sedated ) HEENT: Positive: Normocephaly Neck: Positive: neck supple, trachea midline Cardiac: Positive: Reg Rate and Rhythm, Tachycardia Lungs: Positive: clear to auscultation Neuro: Positive: Other (intubated, sedated) Abdomen: Positive: Soft Skin: Negative: Rash Extremities: Present: normal. Absent: edema - Labs and Meds Cardiac Enzymes 12/04/16 Range/Units 09:55 CK-MB (CK-2) 4.6 H (0.0-4.0) ng/mL CBC 12/05/16 Range/Units 04:30 WBC 19.1 H (4.5-11.0) K/mm3 RBC 2.91 L (3.65-5.03) M/mm3 Hgb 8.0 L (10.1-14.3) gm/dl Hct 25.4 L (30.3-42.9) % Plt Count 218 (140-440) K/mm3 Comprehensive Metabolic Panel 12/04/16 12/04/16 12/04/16 Range/Units 09:55 12:00 13:00 Sodium 144 149 H 150 H (137-145) mmol/L Potassium 3.1 L 3.2 L 3.2 L (3.6-5.0) mmol/L Chloride 101.6 105.0 109.1 H (98-107) mmol/L Carbon Dioxide 7 L* 8 L* 8 L* (22-30) mmol/L BUN 51 H 52 H 49 H (7-17) mg/dL Creatinine 3.2 H 3.4 H 3.1 H (0.7-1.2) mg/dL Glucose 969 H* 723 H* 574 H* (65-100) mg/dL Calcium 10.4 H D 10.2 9.6 (8.4-10.2) mg/dL 12/04/16 12/05/16 12/05/16 Range/Units 14:41 02:50 04:30 Sodium 151 H 151 H 152 H (137-145) mmol/L Potassium 3.2 L 4.1 D 3.8 (3.6-5.0) mmol/L Chloride 108.1 H 113.8 H 113.5 H (98-107) mmol/L Carbon Dioxide 10 L 12 L 12 L (22-30) mmol/L BUN 49 H 46 H 47 H (7-17) mg/dL Creatinine 3.0 H 3.2 H 3.2 H (0.7-1.2) mg/dL Glucose 383 H 165 H 133 H (65-100) mg/dL Calcium 9.7 8.3 L 8.3 L (8.4-10.2) mg/dL - Imaging and Cardiology Echo: report reviewed (11/2016: EF 40-45% repeat echo EF 4045%) - Telemetry EKG Rhythm: Sinus Tachycardia
--- NOTE | 2016-12-05 11:56 | Progress Note ---
Assessment and Plan Assessment and plan: The patient is a 46-year-old woman with history of insulin-dependent diabetes mellitus, hypertension, recent SAH and dyslipidemia who presented with DKA, AMS and STEMI with V. fib arrest requiring IV amiodarone suppression. She is currently intubated. She has a right groin triple-lumen catheter, Short, NG tube, ET tube, she is on IV insulin drip for documented DKA without ketones documentation but she was acidotic on admission. Also, she is on 12 mcg of Levophed, IV vancomycin, 200 mL/hr normal saline, amiodarone drip and propofol drip. -Cardiac arrest with V. fib, - Shocked twice, was given amiodarone, and D/C amiodarone gtt, Echo shows EF 40-45% -Acute hypoxic respiratory failure, intubated -Nstemi Type 2- Likely from Shock. -Cardiac arrest was STEMI: Cardiology following -Suspected DKA: Insulin drip- wean per protocol -Hyperkalemia- CORRECTED -Hypernatremia- will start free water flushes -Metabolic Acidosis- unfortunately we have a bicarb shortage from [employer], will continue with fluids resuscitation. -Acute metabolic encephalopathy- Recent hx of Subarachnoid bleed pt -Leukocytosis on IV vancomycin, Possible aspiration penumonitis. Despite clear xray, patient has crackles on exam. cxr read as no pneumothorax, pneumonia or pleural effusion. We'll order blood cultures, UA -Acute on chronic Renal failure- Nephrology following. Monitor renal function. -DVT prophylaxis: SCDs only due to recent SAH History Interval history: Patient seen and examined, remains intubated. Hospitalist Physical - Physical exam Narrative exam: VITAL SIGNS: Reviewed. GENERAL: sedated and intubated. Vital signs as documented. HEAD: No signs of head trauma. EYES: Pupils are equal. Extraocular motions intact. EARS: Hearing grossly intact. MOUTH: ETT in place NECK: No adenopathy, no JVD. CHEST: Chest with Crackles breath sounds bilaterally. CARDIAC: Regular rate and rhythm. S1 and S2, without murmurs, gallops, or rubs. VASCULAR: No Edema. Peripheral pulses normal and equal in all extremities. ABDOMEN: Soft, without detectable tenderness. No sign of distention. No rebound or guarding, and no masses palpated. Bowel Sounds normal. MUSCULOSKELETAL: Extremities without clubbing, cyanosis or edema. NEUROLOGIC EXAM: Sedated. opens eyes to verbal stimuli. PSYCHIATRIC: Mood normal. SKIN: No rash or lesions. - Constitutional Vitals: Temp Pulse Resp BP Pulse Ox 99.7 F H 120 H 30 H 117/68 99 12/05/16 08:00 12/05/16 11:15 12/05/16 11:15 12/05/16 11:15 12/05/16 10:30 General appearance: Present: severe distress Results - Labs CBC & Chem 7: 12/05/16 04:30 12/05/16 04:30 Labs: Laboratory Last Values WBC 19.1 K/mm3 (4.5-11.0) H 12/05/16 04:30 RBC 2.91 M/mm3 (3.65-5.03) L 12/05/16 04:30 Hgb 8.0 gm/dl (10.1-14.3) L 12/05/16 04:30 Hct 25.4 % (30.3-42.9) L 12/05/16 04:30 MCV 87 fl (79-97) D 12/05/16 04:30 MCH 28 pg (28-32) 12/05/16 04:30 MCHC 32 % (30-34) 12/05/16 04:30 RDW 17.8 % (13.2-15.2) H 12/05/16 04:30 Plt Count 218 K/mm3 (140-440) 12/05/16 04:30 Add Manual Diff Complete 12/05/16 04:30 Total Counted 100 12/05/16 04:30 Seg Neuts % (Manual) 17.0 % (40.0-70.0) L 12/05/16 04:30 Band Neutrophils % 60.0 % 12/05/16 04:30 Lymphocytes % (Manual) 7.0 % (13.4-35.0) L 12/05/16 04:30 Reactive Lymphs % (Man) 0 % 12/05/16 04:30 Monocytes % (Manual) 3.0 % (0.0-7.3) 12/05/16 04:30 Eosinophils % (Manual) 0 % (0.0-4.3) 12/05/16 04:30 Basophils % (Manual) 0 % (0.0-1.8) 12/05/16 04:30 Metamyelocytes % 13.0 % 12/05/16 04:30 Myelocytes % 0 % 12/05/16 04:30 Promyelocytes % 0 % 12/05/16 04:30 Blast Cells % 0 % 12/05/16 04:30 Nucleated RBC % 3.0 % (0.0-0.9) H 12/05/16 04:30 Seg Neutrophils # Man 3.2 K/mm3 (1.8-7.7) 12/05/16 04:30 Band Neutrophils # 11.5 K/mm3 12/05/16 04:30 Lymphocytes # (Manual) 1.3 K/mm3 (1.2-5.4) 12/05/16 04:30 Abs React Lymphs (Man) 0.0 K/mm3 12/05/16 04:30 Monocytes # (Manual) 0.6 K/mm3 (0.0-0.8) 12/05/16 04:30 Eosinophils # (Manual) 0.0 K/mm3 (0.0-0.4) 12/05/16 04:30 Basophils # (Manual) 0.0 K/mm3 (0.0-0.1) 12/05/16 04:30 Metamyelocytes # 2.5 K/mm3 12/05/16 04:30 Myelocytes # 0.0 K/mm3 12/05/16 04:30 Promyelocytes # 0.0 K/mm3 12/05/16 04:30 Blast Cells # 0.0 K/mm3 12/05/16 04:30 WBC Morphology Not Reportable 12/05/16 04:30 Hypersegmented Neuts Not Reportable 12/05/16 04:30 Hyposegmented Neuts Not Reportable 12/05/16 04:30 Hypogranular Neuts Not Reportable 12/05/16 04:30 Smudge Cells Not Reportable 12/05/16 04:30 Toxic Granulation Not Reportable 12/05/16 04:30 Toxic Vacuolation Not Reportable 12/05/16 04:30 Dohle Bodies Not Reportable 12/05/16 04:30 Pelger-Huet Anomaly Not Reportable 12/05/16 04:30 Mary Rods Not Reportable 12/05/16 04:30 Platelet Estimate Appears normal 12/05/16 04:30 Clumped Platelets Not Reportable 12/05/16 04:30 Plt Clumps, EDTA Not Reportable 12/05/16 04:30 Large Platelets Not Reportable 12/05/16 04:30 Giant Platelets Not Reportable 12/05/16 04:30 Platelet Satelliting Not Reportable 12/05/16 04:30 Plt Morphology Comment Not Reportable 12/05/16 04:30 RBC Morphology Not Reportable 12/05/16 04:30 Dimorphic RBCs Not Reportable 12/05/16 04:30 Polychromasia Not Reportable 12/05/16 04:30 Hypochromasia Not Reportable 12/05/16 04:30 Poikilocytosis Not Reportable 12/05/16 04:30 Anisocytosis 1+ 12/05/16 04:30 Microcytosis Not Reportable 12/05/16 04:30 Macrocytosis Rare 12/05/16 04:30 Spherocytes Not Reportable 12/05/16 04:30 Pappenheimer Bodies Not Reportable 12/05/16 04:30 Sickle Cells Not Reportable 12/05/16 04:30 Target Cells Not Reportable 12/05/16 04:30 Tear Drop Cells Not Reportable 12/05/16 04:30 Ovalocytes Not Reportable 12/05/16 04:30 Helmet Cells Not Reportable 12/05/16 04:30 [place] Bodies Not Reportable 12/05/16 04:30 [place] Rings Not Reportable 12/05/16 04:30 [place] Cells Not Reportable 12/05/16 04:30 Bite Cells Not Reportable 12/05/16 04:30 Crenated Cell Not Reportable 12/05/16 04:30 Elliptocytes Not Reportable 12/05/16 04:30 Acanthocytes (Spur) Not Reportable 12/05/16 04:30 Rouleaux Not Reportable 12/05/16 04:30 Hemoglobin C Crystals Not Reportable 12/05/16 04:30 Schistocytes Not Reportable 12/05/16 04:30 Malaria parasites Not Reportable 12/05/16 04:30 Michael Bodies Not Reportable 12/05/16 04:30 Hem Pathologist Commnt No 12/05/16 04:30 PT 17.7 Sec. (12.2-14.9) H 12/03/16 23:20 INR 1.46 (0.87-1.13) H 12/03/16 23:20 APTT 31.0 Sec. (24.2-36.6) 12/03/16 23:20 POC ABG pH 7.447 (7.35-7.45) 12/05/16 08:48 POC ABG pCO2 17.6 (35-45) L 12/05/16 08:48 POC ABG pO2 62 (80-105) L 12/05/16 08:48 POC ABG HCO3 12.2 12/05/16 08:48 POC ABG Total CO2 13 12/05/16 08:48 POC ABG O2 Sat 93 12/05/16 08:48 POC ABG Base Excess -12 12/05/16 08:48 FiO2 30 % 12/05/16 08:48 Sodium 152 mmol/L (137-145) H 12/05/16 04:30 Potassium 3.8 mmol/L (3.6-5.0) 12/05/16 04:30 Chloride 113.5 mmol/L (98-107) H 12/05/16 04:30 Carbon Dioxide 12 mmol/L (22-30) L 12/05/16 04:30 Anion Gap 30 mmol/L 12/05/16 04:30 BUN 47 mg/dL (7-17) H 12/05/16 04:30 Creatinine 3.2 mg/dL (0.7-1.2) H 12/05/16 04:30 Estimated GFR 19 ml/min 12/05/16 04:30 BUN/Creatinine Ratio 14.68 % 12/05/16 04:30 Glucose 133 mg/dL (65-100) H 12/05/16 04:30 POC Glucose 85 (70-105) 12/05/16 10:10 Lactic Acid 9.80 mmol/L (0.7-2.0) H* 12/05/16 02:50 Calcium 8.3 mg/dL (8.4-10.2) L 12/05/16 04:30 Phosphorus 1.00 mg/dL (2.5-4.5) L D 12/05/16 04:30 Magnesium 2.30 mg/dL (1.7-2.3) 12/05/16 04:30 Total Bilirubin < 0.20 mg/dL (0.1-1.2) 12/03/16 23:20 AST 28 units/L (5-40) 12/03/16 23:20 ALT 10 units/L (7-56) 12/03/16 23:20 Alkaline Phosphatase 181 units/L (35-129) H 12/03/16 23:20 Total Creatine Kinase 123 units/L (30-135) 12/04/16 09:55 CK-MB (CK-2) 4.6 ng/mL (0.0-4.0) H 12/04/16 09:55 CK-MB (CK-2) Rel Index 3.7 (0-4) 12/04/16 09:55 Troponin T 0.140 ng/mL (0.00-0.029) H* D 12/04/16 09:55 C-Reactive Protein 3.50 mg/dL (0.00-1.30) H 12/04/16 13:01 Total Protein 6.2 g/dL (6.3-8.2) L 12/03/16 23:20 Albumin 3.5 g/dL (3.9-5) L 12/03/16 23:20 Albumin/Globulin Ratio 1.3 % 12/03/16 23:20 Triglycerides 570 mg/dL (2-149) H 12/04/16 07:55 Cholesterol 221 mg/dL (50-199) H 12/04/16 07:55 LDL Cholesterol Direct TNR 12/04/16 07:55 HDL Cholesterol 37 mg/dL (40-59) L 12/04/16 07:55 Cholesterol/HDL Ratio 5.97 % 12/04/16 07:55 TSH 1.600 mlU/mL (0.270-4.200) 12/03/16 23:20 Urine Color Yellow (Yellow) 12/04/16 11:25 Urine Turbidity Slightly-cloudy (Clear) 12/04/16 11:25 Urine pH 5.0 (5.0-7.0) 12/04/16 11:25 Ur Specific [place] 1.018 (1.003-1.030) 12/04/16 11:25 Urine Protein 30 mg/dl mg/dL (Negative) 12/04/16 11:25 Urine Glucose (UA) >=500 mg/dL (Negative) 12/04/16 11:25 Urine Ketones Tr mg/dL (Negative) 12/04/16 11:25 Urine Blood Sm (Negative) 12/04/16 11:25 Urine Nitrite Neg (Negative) 12/04/16 11:25 Urine Bilirubin Neg (Negative) 12/04/16 11:25 Urine Urobilinogen < 2.0 mg/dL (<2.0) 12/04/16 11:25 Ur Leukocyte Esterase Neg (Negative) 12/04/16 11:25 Urine WBC (Auto) 4.0 /HPF (0.0-6.0) 12/04/16 11:25 Urine RBC (Auto) 2.0 /HPF (0.0-6.0) 12/04/16 11:25 U Epithel Cells (Auto) < 1.0 /HPF (0-13.0) 12/04/16 11:25 Urine Mucus Few /HPF 12/04/16 11:25 Urine Osmolality 419 Mosm/kg 12/04/16 11:25 Urine Creatinine 29.5 mg/dL (0.1-20.0) H 12/04/16 11:25 Protein/Creatinin Ratio 1.12 12/04/16 11:25 Urine Sodium 26 mEq/L 12/04/16 11:25 Urine Total Protein 33 mg/dL (5-11.8) H 12/04/16 11:25 Urine Opiates Screen Presumptive negative 12/04/16 11:25 Urine Methadone Screen Presumptive negative 12/04/16 11:25 Ur Barbiturates Screen Presumptive negative 12/04/16 11:25 Ur Phencyclidine Scrn Presumptive negative 12/04/16 11:25 Ur Amphetamines Screen Presumptive negative 12/04/16 11:25 U Benzodiazepines Scrn Presumptive negative 12/04/16 11:25 Urine Cocaine Screen Presumptive negative 12/04/16 11:25 U Marijuana (THC) Screen Presumptive positive 12/04/16 11:25 Drugs of Abuse Note Disclamer 12/04/16 11:25 Blood Type O POSITIVE 12/03/16 23:43 Antibody Screen TNR 12/03/16 23:43 ISAIAH Antibody Screen Negative 12/03/16 23:43
[2016-12-05] MEDS: MORPHINE IV PRN ×2 (13:56→21:28)
--- NOTE | 2016-12-05 15:00 | Progress Note ---
Assessment and Plan - Patient Problems (1) Severe sepsis Current Visit: Yes Status: Acute Plan to address problem: - needs isotonic fluids while still on vasopressors and in the absence of overt volume overload - change to IVNS - wean levophed for MAP > 60mmHg - continue empiric AB's and follow cultures - continue to trend lactate and CRP as necessary (2) Cardiac arrest Current Visit: Yes Status: Acute Plan to address problem: - achieved ROSC and no recurrence - avoid severe acidosis and treat sepsis (3) Acute renal failure Current Visit: No Status: Acute Qualifiers: Acute renal failure type: A Plan to address problem: - continue IVF but change to IVNS while still septic - increase free water flushes for hypernatremia - per nephrology otherwise - (4) Acute respiratory failure with hypoxemia Current Visit: No Status: Acute Plan to address problem: - improving - will reduce set minute ventilation - continue bronchodilators and pulmonary toilet - continuing aspiration precautions and addressed VAP bundle - wean oxygen for sats > 94% (5) DKA (diabetic ketoacidoses) Current Visit: No Status: Acute Qualifiers: Diabetes mellitus type: type 1 Diabetes mellitus complication detail: with coma Diabetes mellitus superintendent terminal insulin use: D Qualified Code(s): E10.11 - Type 1 diabetes mellitus with ketoacidosis with coma Plan to address problem: - continue IV insulin - adjust per DKA protocol - will continue isotonic fluids acutely (6) Discharge planning issues Current Visit: No Status: Acute Plan to address problem: - improving ...she is critically ill on life sustaining interventions including MVS and at high risk for further deterioration including ..35' CCT Subjective Date of service: 12/05/16 Principal diagnosis: DKA, cardiac arrest Interval history: Seen and examined at bedside; 24 hour events reviewed; nursing and respiratory care staff consulted; no adverse overnight events reported to me; remains on MVS but able to reduce set rate; responds appropritely but then has occasional jerky movts; no N/V/F/C; remains on IV insulin but at 4 units/hr now; remains with sinus tachycardia Objective Vital Signs - 12hr 12/05/16 12/05/16 12/05/16 03:15 03:30 03:45 Temperature 102.9 F H Pulse Rate 132 H 130 H 128 H Pulse Rate [ From Monitor] Respiratory 35 H 35 H 35 H Rate Blood Pressure 116/72 113/73 112/70 O2 Sat by Pulse 100 100 Oximetry 12/05/16 12/05/16 12/05/16 03:56 04:00 04:05 Temperature Pulse Rate 127 H 126 H 127 H Pulse Rate [ From Monitor] Respiratory 35 H 35 H Rate Blood Pressure 112/70 114/73 O2 Sat by Pulse 100 100 Oximetry 12/05/16 12/05/16 12/05/16 04:15 04:30 04:45 Temperature Pulse Rate 125 H 125 H 129 H Pulse Rate [ From Monitor] Respiratory 35 H 35 H 35 H Rate Blood Pressure 112/71 112/72 92/57 O2 Sat by Pulse 100 Oximetry 12/05/16 12/05/16 12/05/16 05:00 05:15 05:30 Temperature Pulse Rate 124 H 124 H 123 H Pulse Rate [ From Monitor] Respiratory 35 H 35 H 35 H Rate Blood Pressure 92/57 105/65 113/66 O2 Sat by Pulse 100 Oximetry 12/05/16 12/05/16 12/05/16 05:38 05:45 06:00 Temperature Pulse Rate 129 H 124 H Pulse Rate [ From Monitor] Respiratory 35 H 16 35 H Rate Blood Pressure 121/63 98/60 O2 Sat by Pulse 100 100 Oximetry 12/05/16 12/05/16 12/05/16 06:15 06:30 06:45 Temperature Pulse Rate 127 H 126 H 123 H Pulse Rate [ From Monitor] Respiratory 35 H 35 H 35 H Rate Blood Pressure 103/58 100/64 102/64 O2 Sat by Pulse Oximetry 12/05/16 12/05/16 12/05/16 07:00 07:15 07:30 Temperature Pulse Rate 121 H 119 H 119 H Pulse Rate [ From Monitor] Respiratory 35 H 35 H 35 H Rate Blood Pressure 109/65 110/64 117/70 O2 Sat by Pulse Oximetry 12/05/16 12/05/16 12/05/16 07:45 08:00 08:15 Temperature 99.7 F H Pulse Rate 117 H 118 H 117 H Pulse Rate [ From Monitor] Respiratory 35 H 35 H 35 H Rate Blood Pressure 114/67 113/72 122/69 O2 Sat by Pulse 98 Oximetry 12/05/16 12/05/16 12/05/16 08:30 08:45 08:48 Temperature Pulse Rate 117 H 118 H 118 H Pulse Rate [ From Monitor] Respiratory 35 H 35 H Rate Blood Pressure 120/71 119/74 120/71 O2 Sat by Pulse 100 Oximetry 12/05/16 12/05/16 12/05/16 09:00 09:15 09:30 Temperature Pulse Rate 120 H 118 H 116 H Pulse Rate [ From Monitor] Respiratory 35 H 26 H 35 H Rate Blood Pressure 128/79 125/77 133/77 O2 Sat by Pulse 100 Oximetry 12/05/16 12/05/16 12/05/16 09:45 10:00 10:15 Temperature Pulse Rate 117 H 118 H 119 H Pulse Rate [ From Monitor] Respiratory 35 H 35 H 35 H Rate Blood Pressure 132/76 126/76 116/75 O2 Sat by Pulse Oximetry 12/05/16 12/05/16 12/05/16 10:26 10:30 10:45 Temperature Pulse Rate 112 H 117 H Pulse Rate [ 120 H From Monitor] Respiratory 28 H 27 H Rate Blood Pressure 110/67 110/67 O2 Sat by Pulse 100 99 Oximetry 12/05/16 12/05/16 12/05/16 11:00 11:15 11:30 Temperature Pulse Rate 121 H 120 H 119 H Pulse Rate [ From Monitor] Respiratory 30 H 30 H 30 H Rate Blood Pressure 117/67 117/68 118/72 O2 Sat by Pulse Oximetry 12/05/16 12/05/16 12/05/16 11:45 12:00 12:15 Temperature 99.8 F H Pulse Rate 108 H 121 H 123 H Pulse Rate [ From Monitor] Respiratory 33 H 30 H 30 H Rate Blood Pressure 127/74 121/72 121/74 O2 Sat by Pulse 97 Oximetry 12/05/16 12/05/16 12/05/16 12:20 12:30 12:45 Temperature Pulse Rate 123 H 124 H 122 H Pulse Rate [ From Monitor] Respiratory 30 H 30 H Rate Blood Pressure 121/72 118/74 114/72 O2 Sat by Pulse 100 100 Oximetry 12/05/16 12/05/16 12/05/16 13:00 13:15 13:30 Temperature Pulse Rate 122 H 131 H 137 H Pulse Rate [ From Monitor] Respiratory 30 H 30 H 16 Rate Blood Pressure 116/81 131/80 137/74 O2 Sat by Pulse 99 96 Oximetry 12/05/16 12/05/16 12/05/16 13:45 14:00 14:15 Temperature Pulse Rate 146 H 135 H 131 H Pulse Rate [ 148 H From Monitor] Respiratory 28 H 30 H 29 H Rate Blood Pressure 142/72 104/68 97/58 O2 Sat by Pulse 100 97 Oximetry Constitutional: alert, appears uncomfortable Eyes: non-icteric ENT: oropharynx moist Neck: supple, no lymphadenopathy Effort: mildly labored Ascultation: Bilateral: rales (scant) Cardiovascular: regular rate and rhythm, other (SVT) Gastrointestinal: normoactive bowel sounds, soft, non-tender, non-distended Integumentary: normal Extremities: no cyanosis, no edema, pulses normal, no ischemia or petechiae Neurologic: non-focal exam, pupils equal and round, motor strength normal and Psychiatric: other (unable to assess) CBC and BMP: 12/05/16 04:30 12/05/16 04:30 ABG, PT/INR, D-dimer: ABG POC ABG pH 7.447 (7.35-7.45) 12/05/16 08:48 POC ABG pCO2 17.6 (35-45) L 12/05/16 08:48 POC ABG pO2 62 (80-105) L 12/05/16 08:48 POC ABG HCO3 12.2 12/05/16 08:48 POC ABG Total CO2 13 12/05/16 08:48 POC ABG O2 Sat 93 12/05/16 08:48 PT/INR, D-dimer PT 17.7 Sec. (12.2-14.9) H 12/03/16 23:20 INR 1.46 (0.87-1.13) H 12/03/16 23:20 Abnormal lab findings: Abnormal Labs 12/04/16 12/04/16 12/04/16 01:19 01:36 02:21 WBC RBC Hgb Hct MCV MCHC RDW Seg Neuts % (Manual) Lymphocytes % (Manual) Nucleated RBC % Lymphocytes # (Manual) POC ABG pH 6.759 L POC ABG pCO2 POC ABG pO2 437 H Sodium Potassium Chloride Carbon Dioxide BUN Creatinine Glucose POC Glucose > 500 H Lactic Acid Calcium Phosphorus 15.70 H Magnesium 4.30 H CK-MB (CK-2) Troponin T C-Reactive Protein Triglycerides Cholesterol HDL Cholesterol Urine Creatinine Urine Total Protein 12/04/16 12/04/16 12/04/16 03:55 04:00 05:11 WBC RBC Hgb Hct MCV MCHC RDW Seg Neuts % (Manual) Lymphocytes % (Manual) Nucleated RBC % Lymphocytes # (Manual) POC ABG pH POC ABG pCO2 POC ABG pO2 Sodium Potassium Chloride 91.4 L Carbon Dioxide 8 L* BUN 55 H Creatinine 2.8 H Glucose 1610 H* POC Glucose > 500 H > 500 H Lactic Acid Calcium Phosphorus Magnesium CK-MB (CK-2) Troponin T C-Reactive Protein Triglycerides Cholesterol HDL Cholesterol Urine Creatinine Urine Total Protein 12/04/16 12/04/16 12/04/16 05:40 05:54 06:58 WBC RBC Hgb Hct MCV MCHC RDW Seg Neuts % (Manual) Lymphocytes % (Manual) Nucleated RBC % Lymphocytes # (Manual) POC ABG pH 7.154 L POC ABG pCO2 27.5 L POC ABG pO2 111 H Sodium Potassium Chloride Carbon Dioxide BUN Creatinine Glucose POC Glucose > 500 H > 500 H Lactic Acid Calcium Phosphorus Magnesium CK-MB (CK-2) Troponin T C-Reactive Protein Triglycerides Cholesterol HDL Cholesterol Urine Creatinine Urine Total Protein 12/04/16 12/04/16 12/04/16 07:49 07:55 07:55 WBC RBC Hgb Hct MCV MCHC RDW Seg Neuts % (Manual) Lymphocytes % (Manual) Nucleated RBC % Lymphocytes # (Manual) POC ABG pH POC ABG pCO2 POC ABG pO2 Sodium Potassium 3.3 L Chloride Carbon Dioxide 9 L* BUN 53 H Creatinine 2.9 H Glucose 1229 H* POC Glucose > 500 H Lactic Acid Calcium Phosphorus Magnesium CK-MB (CK-2) Troponin T 0.111 H* D C-Reactive Protein Triglycerides 570 H Cholesterol 221 H HDL Cholesterol 37 L Urine Creatinine Urine Total Protein 12/04/16 12/04/16 12/04/16 07:55 09:55 09:55 WBC RBC 2.90 L Hgb 8.5 L Hct 30.2 L D MCV 105 H D MCHC 28 L RDW 19.2 H Seg Neuts % (Manual) Lymphocytes % (Manual) 11.0 L Nucleated RBC % Lymphocytes # (Manual) 0.6 L POC ABG pH POC ABG pCO2 POC ABG pO2 Sodium Potassium 3.1 L Chloride Carbon Dioxide 7 L* BUN 51 H Creatinine 3.2 H Glucose 969 H* POC Glucose Lactic Acid Calcium 10.4 H D Phosphorus Magnesium CK-MB (CK-2) 4.6 H Troponin T 0.140 H* D C-Reactive Protein Triglycerides Cholesterol HDL Cholesterol Urine Creatinine Urine Total Protein 12/04/16 12/04/16 12/04/16 09:55 10:37 11:25 WBC RBC Hgb Hct MCV MCHC RDW Seg Neuts % (Manual) Lymphocytes % (Manual) Nucleated RBC % Lymphocytes # (Manual) POC ABG pH 7.215 L POC ABG pCO2 18.8 L POC ABG pO2 193 H Sodium Potassium Chloride Carbon Dioxide BUN Creatinine Glucose POC Glucose Lactic Acid Calcium Phosphorus Magnesium 3.70 H CK-MB (CK-2) Troponin T C-Reactive Protein Triglycerides Cholesterol HDL Cholesterol Urine Creatinine 29.5 H Urine Total Protein 33 H 12/04/16 12/04/16 12/04/16 12:00 12:48 13:00 WBC RBC Hgb Hct MCV MCHC RDW Seg Neuts % (Manual) Lymphocytes % (Manual) Nucleated RBC % Lymphocytes # (Manual) POC ABG pH POC ABG pCO2 POC ABG pO2 Sodium 149 H 150 H Potassium 3.2 L 3.2 L Chloride 109.1 H Carbon Dioxide 8 L* 8 L* BUN 52 H 49 H Creatinine 3.4 H 3.1 H Glucose 723 H* 574 H* POC Glucose Lactic Acid 18.80 H* Calcium Phosphorus Magnesium CK-MB (CK-2) Troponin T C-Reactive Protein Triglycerides Cholesterol HDL Cholesterol Urine Creatinine Urine Total Protein 12/04/16 12/04/16 12/04/16 13:01 14:41 16:06 WBC RBC Hgb Hct MCV MCHC RDW Seg Neuts % (Manual) Lymphocytes % (Manual) Nucleated RBC % Lymphocytes # (Manual) POC ABG pH POC ABG pCO2 POC ABG pO2 Sodium 151 H Potassium 3.2 L Chloride 108.1 H Carbon Dioxide 10 L BUN 49 H Creatinine 3.0 H Glucose 383 H POC Glucose 292 H Lactic Acid Calcium Phosphorus Magnesium CK-MB (CK-2) Troponin T C-Reactive Protein 3.50 H Triglycerides Cholesterol HDL Cholesterol Urine Creatinine Urine Total Protein 12/04/16 12/04/16 12/04/16 17:15 17:25 18:07 WBC RBC Hgb Hct MCV MCHC RDW Seg Neuts % (Manual) Lymphocytes % (Manual) Nucleated RBC % Lymphocytes # (Manual) POC ABG pH 7.255 L POC ABG pCO2 16.9 L POC ABG pO2 169 H Sodium Potassium Chloride Carbon Dioxide BUN Creatinine Glucose POC Glucose 246 H Lactic Acid 18.50 H* Calcium Phosphorus Magnesium CK-MB (CK-2) Troponin T C-Reactive Protein Triglycerides Cholesterol HDL Cholesterol Urine Creatinine Urine Total Protein 12/04/16 12/04/16 12/04/16 19:34 20:31 21:15 WBC RBC Hgb Hct MCV MCHC RDW Seg Neuts % (Manual) Lymphocytes % (Manual) Nucleated RBC % Lymphocytes # (Manual) POC ABG pH POC ABG pCO2 POC ABG pO2 Sodium Potassium Chloride Carbon Dioxide BUN Creatinine Glucose POC Glucose 189 H 126 H 139 H Lactic Acid Calcium Phosphorus Magnesium CK-MB (CK-2) Troponin T C-Reactive Protein Triglycerides Cholesterol HDL Cholesterol Urine Creatinine Urine Total Protein 12/04/16 12/04/16 12/04/16 21:25 22:37 23:35 WBC RBC Hgb Hct MCV MCHC RDW Seg Neuts % (Manual) Lymphocytes % (Manual) Nucleated RBC % Lymphocytes # (Manual) POC ABG pH 7.294 L POC ABG pCO2 16.7 L POC ABG pO2 169 H Sodium Potassium Chloride Carbon Dioxide BUN Creatinine Glucose POC Glucose 131 H 106 H Lactic Acid Calcium Phosphorus Magnesium CK-MB (CK-2) Troponin T C-Reactive Protein Triglycerides Cholesterol HDL Cholesterol Urine Creatinine Urine Total Protein 12/05/16 12/05/16 12/05/16 02:40 02:50 02:50 WBC RBC Hgb Hct MCV MCHC RDW Seg Neuts % (Manual) Lymphocytes % (Manual) Nucleated RBC % Lymphocytes # (Manual) POC ABG pH POC ABG pCO2 POC ABG pO2 Sodium 151 H Potassium Chloride 113.8 H Carbon Dioxide 12 L BUN 46 H Creatinine 3.2 H Glucose 165 H POC Glucose 109 H Lactic Acid 9.80 H* Calcium 8.3 L Phosphorus Magnesium CK-MB (CK-2) Troponin T C-Reactive Protein Triglycerides Cholesterol HDL Cholesterol Urine Creatinine Urine Total Protein 12/05/16 12/05/16 12/05/16 04:01 04:30 04:30 WBC 19.1 H RBC 2.91 L Hgb 8.0 L Hct 25.4 L MCV MCHC RDW 17.8 H Seg Neuts % (Manual) 17.0 L Lymphocytes % (Manual) 7.0 L Nucleated RBC % 3.0 H Lymphocytes # (Manual) POC ABG pH POC ABG pCO2 POC ABG pO2 Sodium 152 H Potassium Chloride 113.5 H Carbon Dioxide 12 L BUN 47 H Creatinine 3.2 H Glucose 133 H POC Glucose 179 H Lactic Acid Calcium 8.3 L Phosphorus 1.00 L D Magnesium CK-MB (CK-2) Troponin T C-Reactive Protein Triglycerides Cholesterol HDL Cholesterol Urine Creatinine Urine Total Protein 12/05/16 12/05/16 12/05/16 05:32 05:57 08:48 WBC RBC Hgb Hct MCV MCHC RDW Seg Neuts % (Manual) Lymphocytes % (Manual) Nucleated RBC % Lymphocytes # (Manual) POC ABG pH 7.258 L POC ABG pCO2 18.6 L 17.6 L POC ABG pO2 33 L 62 L Sodium Potassium Chloride Carbon Dioxide BUN Creatinine Glucose POC Glucose 126 H Lactic Acid Calcium Phosphorus Magnesium CK-MB (CK-2) Troponin T C-Reactive Protein Triglycerides Cholesterol HDL Cholesterol Urine Creatinine Urine Total Protein 12/05/16 12:01 WBC RBC Hgb Hct MCV MCHC RDW Seg Neuts % (Manual) Lymphocytes % (Manual) Nucleated RBC % Lymphocytes # (Manual) POC ABG pH POC ABG pCO2 POC ABG pO2 Sodium Potassium Chloride Carbon Dioxide BUN Creatinine Glucose POC Glucose 117 H Lactic Acid Calcium Phosphorus Magnesium CK-MB (CK-2) Troponin T C-Reactive Protein Triglycerides Cholesterol HDL Cholesterol Urine Creatinine Urine Total Protein
[2016-12-05] MEDS: DIPRIVAN 10 MG/ML 1,000 MG/100 ML BOTTLE IV SCH (15:38)
[2016-12-05] MEDS ORDERED: NACL 0.9% 1000 ML 1,000 ML IV ONE (15:51)
[2016-12-05] MEDS ORDERED: VANCOMYCIN VIAL IV ONE (15:57)
[2016-12-05] MEDS ORDERED: VANCOMYCIN PHARMACY TO DOSE IV SCH (16:00)
[2016-12-05] MEDS: NACL 0.9% 1000 ML 1,000 ML IV SCH ×3 (16:11→23:24)
[2016-12-05] MEDS ORDERED: VANCOMYCIN VIAL 1,250 MG in NACL 0.9% 250ML 250 ML IV ONE (17:00)
[2016-12-05] MEDS ORDERED: D50W (25GM) IV PRN (20:18)
[2016-12-05 21:44] LABS: ISTAT Base Excess -17; ISTAT PCO2 18.3 (35-45); ISTAT PH 7.303 (7.35-7.45); ISTAT PO2 73 (80-105); ISTAT SO2 94; ISTAT TCO2 10
[2016-12-06] MEDS: TYLENOL PR PRN (00:06)
[2016-12-06] MEDS ORDERED: D50W (25GM) IV PRN ×2 (02:04→03:11)
[2016-12-06] MEDS: LEVOPHED 8 MG in NACL 0.9% 250ML 242 ML IV SCH ×2 (04:58→14:48)
[2016-12-06] MEDS: ZOSYN/NS 2.25 GM/50ML 2.25 GM/50 ML BAG IV SCH ×3 (05:09→22:00)
[2016-12-06 05:23] LABS: Hematocrit 23.2 % (30.3-42.9); Hemoglobin 7.6 gm/dl (10.1-14.3); Mean Corpuscular HGB Conc 33 % (30-34); Mean Corpuscular Hemoglobin 28 pg (28-32); Mean Corpuscular Volume 87 fl (79-97); Platelet Count 141 K/mm3 (140-440); Red Blood Count 2.68 M/mm3 (3.65-5.03); Red Cell Distribution Width 18.9 % (13.2-15.2); White Blood Count 6.3 K/mm3 (4.5-11.0)
[2016-12-06 05:43] LABS: BUN/Creatinine Ratio 13.68; Calcium 6.5 mg/dL (8.4-10.2); Chloride 111.5 mmol/L (98-107); Phosphorous 5.8 mg/dL (2.5-4.5); Potassium 5.8 mmol/L (3.6-5.0)
[2016-12-06 06:20] LABS: ISTAT Base Excess -16; ISTAT HCO3 8.7; ISTAT PH 7.432 (7.35-7.45); ISTAT PO2 111 (80-105); ISTAT SO2 99; ISTAT TCO2 9
[2016-12-06] MEDS: D50W (25GM) IV PRN ×4 (09:07→18:27)
[2016-12-06] MEDS ORDERED: KIONEX PR ONE (09:15)
[2016-12-06 09:19] LABS: Basophils % (Manual) 0 % (0.0-1.8); Blastocytes % (Manual) 0 %
[2016-12-06 09:20] LABS: Acanthocytes 1+; Anisocytosis 1+; Burr Cells 2+; Diff Status Complete; Dohle Bodies 1+; Poikilocytosis 2+; Target Cells Few
--- NOTE | 2016-12-06 09:23 | Progress Note ---
Assessment and Plan - Patient Problems (1) Cardiac arrest Current Visit: Yes Status: Acute Plan to address problem: followed by cardiology, not a candidate for intervention (2) DKA (diabetic ketoacidoses) Current Visit: No Status: Acute Qualifiers: Diabetes mellitus type: type 1 Diabetes mellitus complication detail: with coma Diabetes mellitus custodial insulin use: D Qualified Code(s): E10.11 - Type 1 diabetes mellitus with ketoacidosis with coma Plan to address problem: off insulin gtt close monitoring for K, Phos and Mg (3) Acute hypernatremia Current Visit: No Status: Acute Plan to address problem: improved the last 24 hours (4) Acute kidney failure with tubular necrosis Current Visit: No Status: Acute Plan to address problem: secondary to ischemic ATN from shock Cr and BUN cont to rise with oliguric will request vascath placement and start HD, will use high Ca bath, low dialysate temp with sodium modeling to improve hemodynamic stability during HD strict I&O daily weight renal diet (5) Hyperkalemia Current Visit: No Status: Resolved Plan to address problem: will avoid isnulin due to hypoglycemia Kayexelate AL ordered (6) Respiratory failure Current Visit: No Status: Resolved Qualifiers: Chronicity: acute Respiratory failure complication: unspecified whether with hypoxia or hypercapnia Qualified Code(s): J96.00 - Acute respiratory failure, unspecified whether with hypoxia or hypercapnia Plan to address problem: vent management per primary team Subjective Date of service: 12/06/16 Principal diagnosis: DKA, cardiac arrest Interval history: intubated and sedated Objective - Vital Signs Vital signs: Vital Signs - 12hr 12/05/16 12/05/16 12/05/16 21:25 21:28 21:30 Temperature Pulse Rate 127 H Pulse Rate [ From Monitor] Respiratory 30 H 30 H Rate Respiratory 30 H Rate [ Generalized] Blood Pressure 105/60 O2 Sat by Pulse 98 Oximetry 12/05/16 12/05/16 12/05/16 21:34 21:46 21:58 Temperature Pulse Rate 131 H 126 H Pulse Rate [ From Monitor] Respiratory 15 35 H Rate Respiratory Rate [ Generalized] Blood Pressure 108/69 104/54 O2 Sat by Pulse 96 Oximetry 12/05/16 12/05/16 12/05/16 22:00 22:16 22:30 Temperature Pulse Rate 119 H 120 H 115 H Pulse Rate [ From Monitor] Respiratory 35 H 35 H 35 H Rate Respiratory Rate [ Generalized] Blood Pressure 104/54 108/51 84/50 O2 Sat by Pulse 99 100 93 Oximetry 12/05/16 12/05/16 12/05/16 22:45 23:00 23:16 Temperature Pulse Rate 111 H 112 H 115 H Pulse Rate [ From Monitor] Respiratory 33 H 22 28 H Rate Respiratory Rate [ Generalized] Blood Pressure 95/66 103/59 108/49 O2 Sat by Pulse 98 98 100 Oximetry 12/05/16 12/05/16 12/05/16 23:20 23:30 23:45 Temperature Pulse Rate 117 H 117 H 116 H Pulse Rate [ From Monitor] Respiratory 34 H 28 H 35 H Rate Respiratory Rate [ Generalized] Blood Pressure 108/49 89/52 86/56 O2 Sat by Pulse 99 99 100 Oximetry 12/06/16 12/06/16 12/06/16 00:00 00:06 00:15 Temperature 102.2 F H Pulse Rate 115 H 114 H Pulse Rate [ 115 H From Monitor] Respiratory 35 H 35 H 35 H Rate Respiratory Rate [ Generalized] Blood Pressure 81/48 105/72 O2 Sat by Pulse 100 96 Oximetry 12/06/16 12/06/16 12/06/16 00:30 00:45 00:52 Temperature Pulse Rate 116 H 117 H 116 H Pulse Rate [ From Monitor] Respiratory 35 H 35 H Rate Respiratory Rate [ Generalized] Blood Pressure 93/59 86/55 86/55 O2 Sat by Pulse 100 100 100 Oximetry 12/06/16 12/06/16 12/06/16 01:00 01:15 01:30 Temperature Pulse Rate 117 H 120 H 119 H Pulse Rate [ From Monitor] Respiratory 35 H 35 H 36 H Rate Respiratory Rate [ Generalized] Blood Pressure 86/53 88/53 89/55 O2 Sat by Pulse 100 100 100 Oximetry 12/06/16 12/06/16 12/06/16 01:45 02:00 02:15 Temperature Pulse Rate 117 H 112 H 112 H Pulse Rate [ From Monitor] Respiratory 28 H 35 H 35 H Rate Respiratory Rate [ Generalized] Blood Pressure 78/50 86/52 91/62 O2 Sat by Pulse 100 100 100 Oximetry 12/06/16 12/06/16 12/06/16 02:30 02:45 03:00 Temperature Pulse Rate 111 H 108 H 109 H Pulse Rate [ From Monitor] Respiratory 35 H 35 H 35 H Rate Respiratory Rate [ Generalized] Blood Pressure 86/53 92/60 92/63 O2 Sat by Pulse 100 100 100 Oximetry 12/06/16 12/06/16 12/06/16 03:15 03:30 03:45 Temperature Pulse Rate 107 H 104 H 108 H Pulse Rate [ From Monitor] Respiratory 35 H 35 H 36 H Rate Respiratory Rate [ Generalized] Blood Pressure 94/57 87/52 107/70 O2 Sat by Pulse 98 67 L 100 Oximetry 12/06/16 12/06/16 12/06/16 04:00 04:15 04:30 Temperature 101.8 F H Pulse Rate 109 H 104 H Pulse Rate [ 109 H From Monitor] Respiratory 35 H 35 H Rate Respiratory Rate [ Generalized] Blood Pressure 87/64 89/59 96/66 O2 Sat by Pulse 99 99 100 Oximetry 12/06/16 12/06/16 12/06/16 04:45 05:00 05:04 Temperature Pulse Rate 102 H 104 H 107 H Pulse Rate [ From Monitor] Respiratory 35 H 35 H Rate Respiratory Rate [ Generalized] Blood Pressure 106/63 100/62 106/63 O2 Sat by Pulse 100 100 100 Oximetry 12/06/16 12/06/16 12/06/16 05:15 05:30 05:45 Temperature Pulse Rate 101 H 99 H 100 H Pulse Rate [ From Monitor] Respiratory 35 H 35 H 35 H Rate Respiratory Rate [ Generalized] Blood Pressure 101/63 102/65 101/68 O2 Sat by Pulse 100 100 100 Oximetry 12/06/16 12/06/16 12/06/16 06:00 06:15 06:30 Temperature Pulse Rate 97 H 98 H 96 H Pulse Rate [ From Monitor] Respiratory 35 H 35 H 35 H Rate Respiratory Rate [ Generalized] Blood Pressure 96/65 98/67 103/68 O2 Sat by Pulse 100 100 100 Oximetry 12/06/16 12/06/16 12/06/16 06:45 07:00 07:10 Temperature Pulse Rate 98 H 100 H 103 H Pulse Rate [ From Monitor] Respiratory 35 H 35 H Rate Respiratory Rate [ Generalized] Blood Pressure 95/63 94/60 94/60 O2 Sat by Pulse 100 100 100 Oximetry 12/06/16 07:51 Temperature 99.3 F Pulse Rate Pulse Rate [ From Monitor] Respiratory Rate Respiratory Rate [ Generalized] Blood Pressure O2 Sat by Pulse Oximetry - General Appearance General appearance: sedated on ventilator, intubated EENT: mucous membranes dry Neck: no JVD, no carotid bruit Respiratory: Present: Decreased Breath Sounds Cardiology: tachycardia Gastrointestinal: normoactive bowel sounds, no tenderness, no distended Integumentary: no rash, warm and dry Neurologic: other (sedated) Musculoskeletal: other (trace pitting edema in BLE) Psychiatric: other (intubated) - Lab 12/06/16 04:50 12/06/16 04:50 Most recent lab results Calcium 6.5 mg/dL (8.4-10.2) L D 12/06/16 04:50 Phosphorus 5.80 mg/dL (2.5-4.5) H 12/06/16 04:50 Magnesium 2.30 mg/dL (1.7-2.3) 12/05/16 04:30 Urine Creatinine 29.5 mg/dL (0.1-20.0) H 12/04/16 11:25 Urine Sodium 26 mEq/L 12/04/16 11:25 Urine Total Protein 33 mg/dL (5-11.8) H 12/04/16 11:25
--- NOTE | 2016-12-06 09:51 | XRay Report ---
AP CHEST: HISTORY: Followup respiratory failure A right upper lobe infiltrate with air bronchograms has developed since yesterday's exam. Linear scarring or atelectasis in the lower lobes is unchanged. No pleural effusion or pneumothorax. Normal heart size and pulmonary vascularity. Lines and support devices remain in the same position. IMPRESSION: New right upper lobe infiltrate concerning for pneumonia.
--- NOTE | 2016-12-06 09:57 | Progress Note ---
Assessment and Plan Acute respiratory failure vent weaning per pulmonary Cardiac arrest PEA arrest-->V. fib/?torsades-->shocked twice, received amiodarone 300 mg d/c amiodarone gtt Echo 11/2016: EF 40-45%, repeat echo EF 40 to 45% Abnormal EKG/ST elevation Given pt.'s condition, resolution of ST elevation and recent subarachnoid bleed pt. not a candidate for cardiac cath Hypotension off pressors and continue IV hydration nstemi type 2 DKA Hyperkalemia Acute on chronic renal failure Anemia Recent subarachnoid hemorrhage Altered mental status Subjective Date of service: 12/06/16 Principal diagnosis: DKA, cardiac arrest Interval history: intubated and sedated Objective Vital Signs Temp Pulse Pulse Resp Resp BP Pulse Ox 12/06/16 07:51 99.3 F 12/06/16 07:10 103 H 94/60 100 12/06/16 07:00 100 H 35 H 94/60 100 12/06/16 06:45 98 H 35 H 95/63 100 12/06/16 06:30 96 H 35 H 103/68 100 12/06/16 06:15 98 H 35 H 98/67 100 12/06/16 06:00 97 H 35 H 96/65 100 12/06/16 05:45 100 H 35 H 101/68 100 12/06/16 05:30 99 H 35 H 102/65 100 12/06/16 05:15 101 H 35 H 101/63 100 12/06/16 05:04 107 H 106/63 100 12/06/16 05:00 104 H 35 H 100/62 100 12/06/16 04:45 102 H 35 H 106/63 100 12/06/16 04:30 96/66 100 12/06/16 04:15 104 H 35 H 89/59 99 12/06/16 04:00 101.8 F H 109 H 109 H 35 H 87/64 99 12/06/16 03:45 108 H 36 H 107/70 100 12/06/16 03:30 104 H 35 H 87/52 67 L 12/06/16 03:15 107 H 35 H 94/57 98 12/06/16 03:00 109 H 35 H 92/63 100 12/06/16 02:45 108 H 35 H 92/60 100 12/06/16 02:30 111 H 35 H 86/53 100 12/06/16 02:15 112 H 35 H 91/62 100 12/06/16 02:00 112 H 35 H 86/52 100 12/06/16 01:45 117 H 28 H 78/50 100 12/06/16 01:30 119 H 36 H 89/55 100 12/06/16 01:15 120 H 35 H 88/53 100 12/06/16 01:00 117 H 35 H 86/53 100 12/06/16 00:52 116 H 86/55 100 12/06/16 00:45 117 H 35 H 86/55 100 12/06/16 00:30 116 H 35 H 93/59 100 12/06/16 00:15 114 H 35 H 105/72 96 12/06/16 00:06 35 H 12/06/16 00:00 102.2 F H 115 H 115 H 35 H 81/48 100 12/05/16 23:45 116 H 35 H 86/56 100 12/05/16 23:30 117 H 28 H 89/52 99 12/05/16 23:20 117 H 34 H 108/49 99 12/05/16 23:16 115 H 28 H 108/49 100 12/05/16 23:00 112 H 22 103/59 98 12/05/16 22:45 111 H 33 H 95/66 98 12/05/16 22:30 115 H 35 H 84/50 93 12/05/16 22:16 120 H 35 H 108/51 100 12/05/16 22:00 119 H 35 H 104/54 99 12/05/16 21:58 35 H 12/05/16 21:46 126 H 15 104/54 12/05/16 21:34 131 H 108/69 96 12/05/16 21:30 127 H 30 H 105/60 98 12/05/16 21:28 30 H 12/05/16 21:25 30 H 12/05/16 21:15 136 H 29 H 117/75 95 12/05/16 21:00 124 H 30 H 108/69 100 12/05/16 20:45 121 H 30 H 103/66 99 12/05/16 20:30 120 H 30 H 112/72 100 12/05/16 20:15 120 H 30 H 108/71 100 12/05/16 20:00 101.0 F H 120 H 120 H 30 H 103/72 12/05/16 19:45 118 H 30 H 101/68 99 12/05/16 19:30 119 H 30 H 105/65 99 12/05/16 19:15 120 H 30 H 101/67 99 12/05/16 19:00 123 H 30 H 93/66 98 12/05/16 18:45 129 H 30 H 87/57 100 12/05/16 18:30 131 H 30 H 89/56 12/05/16 18:15 134 H 30 H 89/58 12/05/16 18:00 136 H 32 H 91/58 100 12/05/16 17:45 144 H 34 H 99/62 12/05/16 17:44 146 H 112/66 97 12/05/16 17:30 112/66 100 12/05/16 17:16 92/57 96 12/05/16 17:00 129 H 30 H 92/56 12/05/16 16:45 128 H 30 H 92/57 100 12/05/16 16:30 127 H 27 H 100/59 98 12/05/16 16:15 129 H 30 H 90/55 12/05/16 16:00 102.9 F H 136 H 30 H 83/53 96 12/05/16 15:45 139 H 30 H 96/57 12/05/16 15:30 144 H 23 111/64 98 12/05/16 15:16 149 H 25 H 131/75 98 12/05/16 15:00 132 H 30 H 135/69 94 12/05/16 14:45 129 H 30 H 111/65 12/05/16 14:30 129 H 30 H 103/65 12/05/16 14:15 131 H 29 H 97/58 12/05/16 14:00 135 H 148 H 30 H 104/68 97 12/05/16 13:45 146 H 28 H 142/72 100 12/05/16 13:30 137 H 16 137/74 96 12/05/16 13:15 131 H 30 H 131/80 99 12/05/16 13:00 122 H 30 H 116/81 12/05/16 12:45 122 H 30 H 114/72 100 12/05/16 12:30 124 H 30 H 118/74 12/05/16 12:20 123 H 121/72 100 12/05/16 12:15 123 H 30 H 121/74 12/05/16 12:00 99.8 F H 121 H 30 H 121/72 97 12/05/16 11:45 108 H 33 H 127/74 12/05/16 11:30 119 H 30 H 118/72 12/05/16 11:15 120 H 30 H 117/68 12/05/16 11:00 121 H 30 H 117/67 12/05/16 10:45 117 H 27 H 110/67 12/05/16 10:30 112 H 28 H 110/67 99 12/05/16 10:26 120 H 100 12/05/16 10:15 119 H 35 H 116/75 12/05/16 10:00 118 H 35 H 126/76 - Physical Examination General: No Apparent Distress (intubated, sedated ) HEENT: Positive: Normocephaly Neck: Positive: neck supple, trachea midline Cardiac: Positive: Reg Rate and Rhythm Lungs: Positive: clear to auscultation Neuro: Positive: Other (intubated, sedated) Abdomen: Positive: Soft Skin: Negative: Rash Extremities: Present: normal. Absent: edema - Labs and Meds CBC 12/06/16 Range/Units 04:50 WBC 6.3 (4.5-11.0) K/mm3 RBC 2.68 L (3.65-5.03) M/mm3 Hgb 7.6 L (10.1-14.3) gm/dl Hct 23.2 L (30.3-42.9) % Plt Count 141 (140-440) K/mm3 Comprehensive Metabolic Panel 12/06/16 Range/Units 04:50 Sodium 145 (137-145) mmol/L Potassium 5.8 H D (3.6-5.0) mmol/L Chloride 111.5 H (98-107) mmol/L Carbon Dioxide 11 L (22-30) mmol/L BUN 52 H (7-17) mg/dL Creatinine 3.8 H (0.7-1.2) mg/dL Glucose 186 H (65-100) mg/dL Calcium 6.5 L D (8.4-10.2) mg/dL - Imaging and Cardiology Echo: report reviewed (11/2016: EF 40-45% repeat echo EF 4045%)
[2016-12-06] MEDS: NACL 0.9% 1000 ML 1,000 ML IV SCH ×2 (10:13→20:15)
[2016-12-06] MEDS: DIPRIVAN 10 MG/ML 1,000 MG/100 ML BOTTLE IV SCH (12:30)
--- NOTE | 2016-12-06 13:32 | Progress Note ---
Assessment and Plan Assessment and plan: The patient is a 46-year-old woman with history of insulin-dependent diabetes mellitus, hypertension, recent SAH and dyslipidemia who presented with DKA, AMS and STEMI with V. fib arrest requiring IV amiodarone suppression. She is currently intubated. She has a right groin triple-lumen catheter, Short, NG tube, ET tube, she is on IV insulin drip for documented DKA without ketones documentation but she was acidotic on admission. Also, she is on 12 mcg of Levophed, IV vancomycin, 200 mL/hr normal saline, amiodarone drip and propofol drip. -Spesis secondary to Possible aspiration penumonitis. on IV vancomycin, Inital BCX with coaglase negative staff, 1/2 bottles ?contaminate Repeat cultures, no growth. Continue with spesis protocoal, -Aspiration Pneumonitis.- NOTED ABOVE --Acute on chronic Renal failure- Oligouric. plan for dialysis. Nephrology following. Monitor renal function. -Cardiac arrest with V. fib, - Shocked twice, was given amiodarone, and D/C amiodarone gtt, Echo shows EF 40-45% -Acute hypoxic respiratory failure, intubated, Pulmonary following. Continue vent support, Nebs, Nutrition support -Nstemi Type 2- Likely from Shock. -Cardiac arrest was STEMI: Cardiology following -Suspected DKA: Insulin drip- wean per protocol- transition to scheduled basal with sliding scale -Hyperkalemia- CORRECTED -Hypernatremia- will start free water flushes -Metabolic Acidosis- unfortunately we have a bicarb shortage from manufacture, will continue with fluids resuscitation. -Acute metabolic encephalopathy- Recent hx of Subarachnoid bleed pt- Avoid heparin like products. -DVT prophylaxis: SCDs only due to recent SAH History Interval history: Patient seen and examined, remains intubated. hypolgycemic overnight. decreased urine output. responds to verbal stimuli. Hospitalist Physical - Physical exam Narrative exam: VITAL SIGNS: Reviewed. GENERAL: sedated and intubated. Vital signs as documented. HEAD: No signs of head trauma. EYES: Pupils are equal. Extraocular motions intact. EARS: Hearing grossly intact. MOUTH: ETT in place NECK: No adenopathy, no JVD. CHEST: Chest with Crackles breath sounds bilaterally. CARDIAC: Regular rate and rhythm. S1 and S2, without murmurs, gallops, or rubs. VASCULAR: No Edema. Peripheral pulses normal and equal in all extremities. ABDOMEN: Soft, without detectable tenderness. No sign of distention. No rebound or guarding, and no masses palpated. Bowel Sounds normal. MUSCULOSKELETAL: Extremities without clubbing, cyanosis or edema. NEUROLOGIC EXAM: Sedated. opens eyes to verbal stimuli. PSYCHIATRIC: Mood normal. SKIN: No rash or lesions. - Constitutional Vitals: Temp Pulse Resp BP Pulse Ox 98.6 F 88 35 H 103/67 100 12/06/16 12:00 12/06/16 11:24 12/06/16 07:00 12/06/16 11:24 12/06/16 11:24 General appearance: Present: severe distress Results - Labs CBC & Chem 7: 12/07/16 06:00 12/06/16 19:00 Labs: Laboratory Last Values WBC 6.3 K/mm3 (4.5-11.0) 12/06/16 04:50 RBC 2.68 M/mm3 (3.65-5.03) L 12/06/16 04:50 Hgb 7.6 gm/dl (10.1-14.3) L 12/06/16 04:50 Hct 23.2 % (30.3-42.9) L 12/06/16 04:50 MCV 87 fl (79-97) 12/06/16 04:50 MCH 28 pg (28-32) 12/06/16 04:50 MCHC 33 % (30-34) 12/06/16 04:50 RDW 18.9 % (13.2-15.2) H 12/06/16 04:50 Plt Count 141 K/mm3 (140-440) 12/06/16 04:50 Add Manual Diff Complete 12/06/16 04:50 Total Counted 100 12/06/16 04:50 Seg Neuts % (Manual) 32.0 % (40.0-70.0) L 12/06/16 04:50 Band Neutrophils % 38.0 % 12/06/16 04:50 Lymphocytes % (Manual) 15.0 % (13.4-35.0) 12/06/16 04:50 Reactive Lymphs % (Man) 0 % 12/06/16 04:50 Monocytes % (Manual) 1.0 % (0.0-7.3) 12/06/16 04:50 Eosinophils % (Manual) 1.0 % (0.0-4.3) 12/06/16 04:50 Basophils % (Manual) 0 % (0.0-1.8) 12/06/16 04:50 Metamyelocytes % 6.0 % 12/06/16 04:50 Myelocytes % 6.0 % 12/06/16 04:50 Promyelocytes % 1.0 % 12/06/16 04:50 Blast Cells % 0 % 12/06/16 04:50 Nucleated RBC % 3.0 % (0.0-0.9) H 12/06/16 04:50 Seg Neutrophils # Man 2.0 K/mm3 (1.8-7.7) 12/06/16 04:50 Band Neutrophils # 2.4 K/mm3 12/06/16 04:50 Lymphocytes # (Manual) 0.9 K/mm3 (1.2-5.4) L 12/06/16 04:50 Abs React Lymphs (Man) 0.0 K/mm3 12/06/16 04:50 Monocytes # (Manual) 0.1 K/mm3 (0.0-0.8) 12/06/16 04:50 Eosinophils # (Manual) 0.1 K/mm3 (0.0-0.4) 12/06/16 04:50 Basophils # (Manual) 0.0 K/mm3 (0.0-0.1) 12/06/16 04:50 Metamyelocytes # 0.4 K/mm3 12/06/16 04:50 Myelocytes # 0.4 K/mm3 12/06/16 04:50 Promyelocytes # 0.1 K/mm3 12/06/16 04:50 Blast Cells # 0.0 K/mm3 12/06/16 04:50 WBC Morphology Not Reportable 12/06/16 04:50 Hypersegmented Neuts Not Reportable 12/06/16 04:50 Hyposegmented Neuts Not Reportable 12/06/16 04:50 Hypogranular Neuts Not Reportable 12/06/16 04:50 Smudge Cells Not Reportable 12/06/16 04:50 Toxic Granulation Not Reportable 12/06/16 04:50 Toxic Vacuolation Not Reportable 12/06/16 04:50 Dohle Bodies 1+ 12/06/16 04:50 Pelger-Huet Anomaly Not Reportable 12/06/16 04:50 Mary Rods Not Reportable 12/06/16 04:50 Platelet Estimate Appears normal 12/06/16 04:50 Clumped Platelets Not Reportable 12/06/16 04:50 Plt Clumps, EDTA Not Reportable 12/06/16 04:50 Large Platelets Not Reportable 12/06/16 04:50 Giant Platelets Not Reportable 12/06/16 04:50 Platelet Satelliting Not Reportable 12/06/16 04:50 Plt Morphology Comment Not Reportable 12/06/16 04:50 RBC Morphology Not Reportable 12/06/16 04:50 Dimorphic RBCs Not Reportable 12/06/16 04:50 Polychromasia Not Reportable 12/06/16 04:50 Hypochromasia Not Reportable 12/06/16 04:50 Poikilocytosis 2+ 12/06/16 04:50 Anisocytosis 1+ 12/06/16 04:50 Microcytosis Not Reportable 12/06/16 04:50 Macrocytosis Not Reportable 12/06/16 04:50 Spherocytes Not Reportable 12/06/16 04:50 Pappenheimer Bodies Not Reportable 12/06/16 04:50 Sickle Cells Not Reportable 12/06/16 04:50 Target Cells Few 12/06/16 04:50 Tear Drop Cells Not Reportable 12/06/16 04:50 Ovalocytes Not Reportable 12/06/16 04:50 Helmet Cells Not Reportable 12/06/16 04:50 Landers-Idanha Bodies Not Reportable 12/06/16 04:50 [place] Rings Not Reportable 12/06/16 04:50 Jerri Cells 2+ 12/06/16 04:50 Bite Cells Not Reportable 12/06/16 04:50 Crenated Cell Not Reportable 12/06/16 04:50 Elliptocytes Not Reportable 12/06/16 04:50 Acanthocytes (Spur) 1+ 12/06/16 04:50 Rouleaux Not Reportable 12/06/16 04:50 Hemoglobin C Crystals Not Reportable 12/06/16 04:50 Schistocytes Not Reportable 12/06/16 04:50 Malaria parasites Not Reportable 12/06/16 04:50 Michael Bodies Not Reportable 12/06/16 04:50 Hem Pathologist Commnt No 12/06/16 04:50 PT 17.7 Sec. (12.2-14.9) H 12/03/16 23:20 INR 1.46 (0.87-1.13) H 12/03/16 23:20 APTT 31.0 Sec. (24.2-36.6) 12/03/16 23:20 POC ABG pH 7.432 (7.35-7.45) 12/06/16 05:04 POC ABG pCO2 13.0 (35-45) L 12/06/16 05:04 POC ABG pO2 111 (80-105) H 12/06/16 05:04 POC ABG HCO3 8.7 12/06/16 05:04 POC ABG Total CO2 9 12/06/16 05:04 POC ABG O2 Sat 99 12/06/16 05:04 POC ABG Base Excess -16 12/06/16 05:04 FiO2 30 % 12/06/16 05:04 Sodium 145 mmol/L (137-145) 12/06/16 04:50 Potassium 5.8 mmol/L (3.6-5.0) H D 12/06/16 04:50 Chloride 111.5 mmol/L (98-107) H 12/06/16 04:50 Carbon Dioxide 11 mmol/L (22-30) L 12/06/16 04:50 Anion Gap 28 mmol/L 12/06/16 04:50 BUN 52 mg/dL (7-17) H 12/06/16 04:50 Creatinine 3.8 mg/dL (0.7-1.2) H 12/06/16 04:50 Estimated GFR 15 ml/min 12/06/16 04:50 BUN/Creatinine Ratio 13.68 % 12/06/16 04:50 Glucose 186 mg/dL (65-100) H 12/06/16 04:50 POC Glucose 144 (70-105) H 12/06/16 11:58 Lactic Acid 6.50 mmol/L (0.7-2.0) H* 12/06/16 04:50 Calcium 6.5 mg/dL (8.4-10.2) L D 12/06/16 04:50 Phosphorus 5.80 mg/dL (2.5-4.5) H 12/06/16 04:50 Magnesium 2.30 mg/dL (1.7-2.3) 12/05/16 04:30 Total Bilirubin < 0.20 mg/dL (0.1-1.2) 12/03/16 23:20 AST 28 units/L (5-40) 12/03/16 23:20 ALT 10 units/L (7-56) 12/03/16 23:20 Alkaline Phosphatase 181 units/L (35-129) H 12/03/16 23:20 Total Creatine Kinase 123 units/L (30-135) 12/04/16 09:55 CK-MB (CK-2) 4.6 ng/mL (0.0-4.0) H 12/04/16 09:55 CK-MB (CK-2) Rel Index 3.7 (0-4) 12/04/16 09:55 Troponin T 0.140 ng/mL (0.00-0.029) H* D 12/04/16 09:55 C-Reactive Protein 3.50 mg/dL (0.00-1.30) H 12/04/16 13:01 Total Protein 6.2 g/dL (6.3-8.2) L 12/03/16 23:20 Albumin 3.5 g/dL (3.9-5) L 12/03/16 23:20 Albumin/Globulin Ratio 1.3 % 12/03/16 23:20 Triglycerides 570 mg/dL (2-149) H 12/04/16 07:55 Cholesterol 221 mg/dL (50-199) H 12/04/16 07:55 LDL Cholesterol Direct TNR 12/04/16 07:55 HDL Cholesterol 37 mg/dL (40-59) L 12/04/16 07:55 Cholesterol/HDL Ratio 5.97 % 12/04/16 07:55 TSH 1.600 mlU/mL (0.270-4.200) 12/03/16 23:20 Urine Color Yellow (Yellow) 12/04/16 11:25 Urine Turbidity Slightly-cloudy (Clear) 12/04/16 11:25 Urine pH 5.0 (5.0-7.0) 12/04/16 11:25 Ur Specific [place] 1.018 (1.003-1.030) 12/04/16 11:25 Urine Protein 30 mg/dl mg/dL (Negative) 12/04/16 11:25 Urine Glucose (UA) >=500 mg/dL (Negative) 12/04/16 11:25 Urine Ketones Tr mg/dL (Negative) 12/04/16 11:25 Urine Blood Sm (Negative) 12/04/16 11:25 Urine Nitrite Neg (Negative) 12/04/16 11:25 Urine Bilirubin Neg (Negative) 12/04/16 11:25 Urine Urobilinogen < 2.0 mg/dL (<2.0) 12/04/16 11:25 Ur Leukocyte Esterase Neg (Negative) 12/04/16 11:25 Urine WBC (Auto) 4.0 /HPF (0.0-6.0) 12/04/16 11:25 Urine RBC (Auto) 2.0 /HPF (0.0-6.0) 12/04/16 11:25 U Epithel Cells (Auto) < 1.0 /HPF (0-13.0) 12/04/16 11:25 Urine Mucus Few /HPF 12/04/16 11:25 Urine Osmolality 419 Mosm/kg 12/04/16 11:25 Urine Creatinine 29.5 mg/dL (0.1-20.0) H 12/04/16 11:25 Protein/Creatinin Ratio 1.12 12/04/16 11:25 Urine Sodium 26 mEq/L 12/04/16 11:25 Urine Total Protein 33 mg/dL (5-11.8) H 12/04/16 11:25 Urine Opiates Screen Presumptive negative 12/04/16 11:25 Urine Methadone Screen Presumptive negative 12/04/16 11:25 Ur Barbiturates Screen Presumptive negative 12/04/16 11:25 Ur Phencyclidine Scrn Presumptive negative 12/04/16 11:25 Ur Amphetamines Screen Presumptive negative 12/04/16 11:25 U Benzodiazepines Scrn Presumptive negative 12/04/16 11:25 Urine Cocaine Screen Presumptive negative 12/04/16 11:25 U Marijuana (THC) Screen Presumptive positive 12/04/16 11:25 Drugs of Abuse Note Disclamer 12/04/16 11:25 Blood Type O POSITIVE 12/03/16 23:43 Antibody Screen TNR 12/03/16 23:43 ISAIAH Antibody Screen Negative 12/03/16 23:43 - Imaging and Cardiology Chest x-ray: image reviewed (pneumonia on right lobe)
[2016-12-06] MEDS ORDERED: LEVOPHED DRIP 4 MG/NS 250 ML 4 MG/250 ML BAG IV ONE (14:16)
[2016-12-06] MEDS: HEPARIN SUB-Q SCH (14:39)
[2016-12-06] MEDS: PEPCID IV SCH (14:39)
--- NOTE | 2016-12-06 14:39 | Progress Note ---
Assessment and Plan - Patient Problems (1) Severe sepsis Current Visit: Yes Status: Acute Plan to address problem: (At this point ASHELY is worsening and she is needing HD/UF; in the setting of severe sepsis with MODS and oliguria i will go with conservative fluid management strategies - also discussed 2D ECHO with cardiology and IVC is dilated and variation not reflecting IVVD) - needs isotonic fluids while still on vasopressors and in the absence of overt volume overload - change to IVNS and continue at 100mls/hr to complete 4 liters ordered earlier then re-evaluate (1.5 liters left) - continue wean levophed for MAP > 60mmHg - continue empiric AB's and follow cultures - continue to trend lactate and CRP as necessary - will place PICC line in am - send new tracheal aspirate for C&S - blood cultures growing coag -ve staph in 1 of 4 bottles and likely contaminant - discontinue vancomycin empirically in setting of ASHELY (2) Cardiac arrest Current Visit: Yes Status: Acute Plan to address problem: - achieved ROSC and no recurrence - avoid severe acidosis and continue to treat sepsis (3) Acute renal failure Current Visit: No Status: Acute Qualifiers: Acute renal failure type: A Plan to address problem: - continue IVF but changed to IVNS while still septic - increase free water flushes for hypernatremia - per nephrology otherwise - to get vascath and begin HD/UF (4) Acute respiratory failure with hypoxemia Current Visit: No Status: Acute Plan to address problem: - improving - will reduce set minute ventilation (reduced rate to 30/min) - continue bronchodilators and pulmonary toilet - continuing aspiration precautions and addressed VAP bundle - continue to wean oxygen for sats > 94% (5) DKA (diabetic ketoacidoses) Current Visit: No Status: Acute Qualifiers: Diabetes mellitus type: type 1 Diabetes mellitus complication detail: with coma Diabetes mellitus group home insulin use: D Qualified Code(s): E10.11 - Type 1 diabetes mellitus with ketoacidosis with coma Plan to address problem: - off IV insulin - will continue isotonic fluids acutely - will begin enteral nutrition - begin SSI (6) Discharge planning issues Current Visit: No Status: Acute Plan to address problem: - improving ...she remains critically ill on life sustaining interventions including MVS and at high risk for further deterioration including ..35' CCT Subjective Date of service: 12/06/16 Principal diagnosis: Severe Sepsis; DKA, cardiac arrest Interval history: Seen and examined at bedside; 24 hour events reviewed; nursing and respiratory care staff consulted; no adverse overnight events reported to me; remains on MVS ; still with significant metabolic acidosis requiring high minute volumes to compensate; oliguric at this point with rising BUN/Cr levelsl remains on levophed at 14mics/min; NGT remains to LIS but effluent reducing Objective Vital Signs - 12hr 12/06/16 12/06/16 12/06/16 02:45 03:00 03:15 Temperature Pulse Rate 108 H 109 H 107 H Pulse Rate [ From Monitor] Respiratory 35 H 35 H 35 H Rate Blood Pressure 92/60 92/63 94/57 O2 Sat by Pulse 100 100 98 Oximetry 12/06/16 12/06/16 12/06/16 03:30 03:45 04:00 Temperature 101.8 F H Pulse Rate 104 H 108 H 109 H Pulse Rate [ 109 H From Monitor] Respiratory 35 H 36 H 35 H Rate Blood Pressure 87/52 107/70 87/64 O2 Sat by Pulse 67 L 100 99 Oximetry 12/06/16 12/06/16 12/06/16 04:15 04:30 04:45 Temperature Pulse Rate 104 H 102 H Pulse Rate [ From Monitor] Respiratory 35 H 35 H Rate Blood Pressure 89/59 96/66 106/63 O2 Sat by Pulse 99 100 100 Oximetry 12/06/16 12/06/16 12/06/16 05:00 05:04 05:15 Temperature Pulse Rate 104 H 107 H 101 H Pulse Rate [ From Monitor] Respiratory 35 H 35 H Rate Blood Pressure 100/62 106/63 101/63 O2 Sat by Pulse 100 100 100 Oximetry 12/06/16 12/06/16 12/06/16 05:30 05:45 06:00 Temperature Pulse Rate 99 H 100 H 97 H Pulse Rate [ From Monitor] Respiratory 35 H 35 H 35 H Rate Blood Pressure 102/65 101/68 96/65 O2 Sat by Pulse 100 100 100 Oximetry 12/06/16 12/06/16 12/06/16 06:15 06:30 06:45 Temperature Pulse Rate 98 H 96 H 98 H Pulse Rate [ From Monitor] Respiratory 35 H 35 H 35 H Rate Blood Pressure 98/67 103/68 95/63 O2 Sat by Pulse 100 100 100 Oximetry 12/06/16 12/06/16 12/06/16 07:00 07:10 07:51 Temperature 99.3 F Pulse Rate 100 H 103 H Pulse Rate [ From Monitor] Respiratory 35 H Rate Blood Pressure 94/60 94/60 O2 Sat by Pulse 100 100 Oximetry 12/06/16 12/06/16 12/06/16 11:24 12:00 14:17 Temperature 98.6 F Pulse Rate 88 105 H Pulse Rate [ From Monitor] Respiratory Rate Blood Pressure 103/67 89/60 O2 Sat by Pulse 100 100 Oximetry Constitutional: appears uncomfortable, other (sedated) Eyes: non-icteric ENT: oropharynx moist Neck: supple, no lymphadenopathy Effort: mildly labored Ascultation: Bilateral: diminished breath sounds, rales (scant) Cardiovascular: regular rate and rhythm, other (SVT) Gastrointestinal: normoactive bowel sounds, soft, non-tender, non-distended Integumentary: normal Extremities: no cyanosis, no edema, pulses normal, no ischemia or petechiae Neurologic: non-focal exam, pupils equal and round, motor strength normal and, other (sedated) Psychiatric: other (unable to assess) CBC and BMP: 12/06/16 04:50 12/06/16 04:50 ABG, PT/INR, D-dimer: ABG POC ABG pH 7.432 (7.35-7.45) 12/06/16 05:04 POC ABG pCO2 13.0 (35-45) L 12/06/16 05:04 POC ABG pO2 111 (80-105) H 12/06/16 05:04 POC ABG HCO3 8.7 12/06/16 05:04 POC ABG Total CO2 9 12/06/16 05:04 POC ABG O2 Sat 99 12/06/16 05:04 PT/INR, D-dimer PT 17.7 Sec. (12.2-14.9) H 12/03/16 23:20 INR 1.46 (0.87-1.13) H 12/03/16 23:20 Abnormal lab findings: Abnormal Labs 12/04/16 12/04/16 12/04/16 01:19 01:36 02:21 WBC RBC Hgb Hct MCV MCHC RDW Seg Neuts % (Manual) Lymphocytes % (Manual) Nucleated RBC % Lymphocytes # (Manual) POC ABG pH 6.759 L POC ABG pCO2 POC ABG pO2 437 H Sodium Potassium Chloride Carbon Dioxide BUN Creatinine Glucose POC Glucose > 500 H Lactic Acid Calcium Phosphorus 15.70 H Magnesium 4.30 H CK-MB (CK-2) Troponin T C-Reactive Protein Triglycerides Cholesterol HDL Cholesterol Urine Creatinine Urine Total Protein 12/04/16 12/04/16 12/04/16 03:55 04:00 05:11 WBC RBC Hgb Hct MCV MCHC RDW Seg Neuts % (Manual) Lymphocytes % (Manual) Nucleated RBC % Lymphocytes # (Manual) POC ABG pH POC ABG pCO2 POC ABG pO2 Sodium Potassium Chloride 91.4 L Carbon Dioxide 8 L* BUN 55 H Creatinine 2.8 H Glucose 1610 H* POC Glucose > 500 H > 500 H Lactic Acid Calcium Phosphorus Magnesium CK-MB (CK-2) Troponin T C-Reactive Protein Triglycerides Cholesterol HDL Cholesterol Urine Creatinine Urine Total Protein 12/04/16 12/04/16 12/04/16 05:40 05:54 06:58 WBC RBC Hgb Hct MCV MCHC RDW Seg Neuts % (Manual) Lymphocytes % (Manual) Nucleated RBC % Lymphocytes # (Manual) POC ABG pH 7.154 L POC ABG pCO2 27.5 L POC ABG pO2 111 H Sodium Potassium Chloride Carbon Dioxide BUN Creatinine Glucose POC Glucose > 500 H > 500 H Lactic Acid Calcium Phosphorus Magnesium CK-MB (CK-2) Troponin T C-Reactive Protein Triglycerides Cholesterol HDL Cholesterol Urine Creatinine Urine Total Protein 12/04/16 12/04/16 12/04/16 07:49 07:55 07:55 WBC RBC Hgb Hct MCV MCHC RDW Seg Neuts % (Manual) Lymphocytes % (Manual) Nucleated RBC % Lymphocytes # (Manual) POC ABG pH POC ABG pCO2 POC ABG pO2 Sodium Potassium 3.3 L Chloride Carbon Dioxide 9 L* BUN 53 H Creatinine 2.9 H Glucose 1229 H* POC Glucose > 500 H Lactic Acid Calcium Phosphorus Magnesium CK-MB (CK-2) Troponin T 0.111 H* D C-Reactive Protein Triglycerides 570 H Cholesterol 221 H HDL Cholesterol 37 L Urine Creatinine Urine Total Protein 12/04/16 12/04/16 12/04/16 07:55 09:55 09:55 WBC RBC 2.90 L Hgb 8.5 L Hct 30.2 L D MCV 105 H D MCHC 28 L RDW 19.2 H Seg Neuts % (Manual) Lymphocytes % (Manual) 11.0 L Nucleated RBC % Lymphocytes # (Manual) 0.6 L POC ABG pH POC ABG pCO2 POC ABG pO2 Sodium Potassium 3.1 L Chloride Carbon Dioxide 7 L* BUN 51 H Creatinine 3.2 H Glucose 969 H* POC Glucose Lactic Acid Calcium 10.4 H D Phosphorus Magnesium CK-MB (CK-2) 4.6 H Troponin T 0.140 H* D C-Reactive Protein Triglycerides Cholesterol HDL Cholesterol Urine Creatinine Urine Total Protein 12/04/16 12/04/16 12/04/16 09:55 10:37 11:25 WBC RBC Hgb Hct MCV MCHC RDW Seg Neuts % (Manual) Lymphocytes % (Manual) Nucleated RBC % Lymphocytes # (Manual) POC ABG pH 7.215 L POC ABG pCO2 18.8 L POC ABG pO2 193 H Sodium Potassium Chloride Carbon Dioxide BUN Creatinine Glucose POC Glucose Lactic Acid Calcium Phosphorus Magnesium 3.70 H CK-MB (CK-2) Troponin T C-Reactive Protein Triglycerides Cholesterol HDL Cholesterol Urine Creatinine 29.5 H Urine Total Protein 33 H 12/04/16 12/04/16 12/04/16 12:00 12:48 13:00 WBC RBC Hgb Hct MCV MCHC RDW Seg Neuts % (Manual) Lymphocytes % (Manual) Nucleated RBC % Lymphocytes # (Manual) POC ABG pH POC ABG pCO2 POC ABG pO2 Sodium 149 H 150 H Potassium 3.2 L 3.2 L Chloride 109.1 H Carbon Dioxide 8 L* 8 L* BUN 52 H 49 H Creatinine 3.4 H 3.1 H Glucose 723 H* 574 H* POC Glucose Lactic Acid 18.80 H* Calcium Phosphorus Magnesium CK-MB (CK-2) Troponin T C-Reactive Protein Triglycerides Cholesterol HDL Cholesterol Urine Creatinine Urine Total Protein 12/04/16 12/04/16 12/04/16 13:01 14:41 16:06 WBC RBC Hgb Hct MCV MCHC RDW Seg Neuts % (Manual) Lymphocytes % (Manual) Nucleated RBC % Lymphocytes # (Manual) POC ABG pH POC ABG pCO2 POC ABG pO2 Sodium 151 H Potassium 3.2 L Chloride 108.1 H Carbon Dioxide 10 L BUN 49 H Creatinine 3.0 H Glucose 383 H POC Glucose 292 H Lactic Acid Calcium Phosphorus Magnesium CK-MB (CK-2) Troponin T C-Reactive Protein 3.50 H Triglycerides Cholesterol HDL Cholesterol Urine Creatinine Urine Total Protein 12/04/16 12/04/16 12/04/16 17:15 17:25 18:07 WBC RBC Hgb Hct MCV MCHC RDW Seg Neuts % (Manual) Lymphocytes % (Manual) Nucleated RBC % Lymphocytes # (Manual) POC ABG pH 7.255 L POC ABG pCO2 16.9 L POC ABG pO2 169 H Sodium Potassium Chloride Carbon Dioxide BUN Creatinine Glucose POC Glucose 246 H Lactic Acid 18.50 H* Calcium Phosphorus Magnesium CK-MB (CK-2) Troponin T C-Reactive Protein Triglycerides Cholesterol HDL Cholesterol Urine Creatinine Urine Total Protein 12/04/16 12/04/16 12/04/16 19:34 20:31 21:15 WBC RBC Hgb Hct MCV MCHC RDW Seg Neuts % (Manual) Lymphocytes % (Manual) Nucleated RBC % Lymphocytes # (Manual) POC ABG pH POC ABG pCO2 POC ABG pO2 Sodium Potassium Chloride Carbon Dioxide BUN Creatinine Glucose POC Glucose 189 H 126 H 139 H Lactic Acid Calcium Phosphorus Magnesium CK-MB (CK-2) Troponin T C-Reactive Protein Triglycerides Cholesterol HDL Cholesterol Urine Creatinine Urine Total Protein 12/04/16 12/04/16 12/04/16 21:25 22:37 23:35 WBC RBC Hgb Hct MCV MCHC RDW Seg Neuts % (Manual) Lymphocytes % (Manual) Nucleated RBC % Lymphocytes # (Manual) POC ABG pH 7.294 L POC ABG pCO2 16.7 L POC ABG pO2 169 H Sodium Potassium Chloride Carbon Dioxide BUN Creatinine Glucose POC Glucose 131 H 106 H Lactic Acid Calcium Phosphorus Magnesium CK-MB (CK-2) Troponin T C-Reactive Protein Triglycerides Cholesterol HDL Cholesterol Urine Creatinine Urine Total Protein 12/05/16 12/05/16 12/05/16 02:40 02:50 02:50 WBC RBC Hgb Hct MCV MCHC RDW Seg Neuts % (Manual) Lymphocytes % (Manual) Nucleated RBC % Lymphocytes # (Manual) POC ABG pH POC ABG pCO2 POC ABG pO2 Sodium 151 H Potassium Chloride 113.8 H Carbon Dioxide 12 L BUN 46 H Creatinine 3.2 H Glucose 165 H POC Glucose 109 H Lactic Acid 9.80 H* Calcium 8.3 L Phosphorus Magnesium CK-MB (CK-2) Troponin T C-Reactive Protein Triglycerides Cholesterol HDL Cholesterol Urine Creatinine Urine Total Protein 12/05/16 12/05/16 12/05/16 04:01 04:30 04:30 WBC 19.1 H RBC 2.91 L Hgb 8.0 L Hct 25.4 L MCV MCHC RDW 17.8 H Seg Neuts % (Manual) 17.0 L Lymphocytes % (Manual) 7.0 L Nucleated RBC % 3.0 H Lymphocytes # (Manual) POC ABG pH POC ABG pCO2 POC ABG pO2 Sodium 152 H Potassium Chloride 113.5 H Carbon Dioxide 12 L BUN 47 H Creatinine 3.2 H Glucose 133 H POC Glucose 179 H Lactic Acid Calcium 8.3 L Phosphorus 1.00 L D Magnesium CK-MB (CK-2) Troponin T C-Reactive Protein Triglycerides Cholesterol HDL Cholesterol Urine Creatinine Urine Total Protein 12/05/16 12/05/16 12/05/16 05:32 05:57 08:01 WBC RBC Hgb Hct MCV MCHC RDW Seg Neuts % (Manual) Lymphocytes % (Manual) Nucleated RBC % Lymphocytes # (Manual) POC ABG pH 7.258 L POC ABG pCO2 18.6 L POC ABG pO2 33 L Sodium Potassium Chloride Carbon Dioxide BUN Creatinine Glucose POC Glucose 126 H 130 H Lactic Acid Calcium Phosphorus Magnesium CK-MB (CK-2) Troponin T C-Reactive Protein Triglycerides Cholesterol HDL Cholesterol Urine Creatinine Urine Total Protein 12/05/16 12/05/16 12/05/16 08:48 08:54 12:01 WBC RBC Hgb Hct MCV MCHC RDW Seg Neuts % (Manual) Lymphocytes % (Manual) Nucleated RBC % Lymphocytes # (Manual) POC ABG pH POC ABG pCO2 17.6 L POC ABG pO2 62 L Sodium Potassium Chloride Carbon Dioxide BUN Creatinine Glucose POC Glucose 157 H 117 H Lactic Acid Calcium Phosphorus Magnesium CK-MB (CK-2) Troponin T C-Reactive Protein Triglycerides Cholesterol HDL Cholesterol Urine Creatinine Urine Total Protein 12/05/16 12/05/16 12/05/16 15:15 16:10 16:55 WBC RBC Hgb Hct MCV MCHC RDW Seg Neuts % (Manual) Lymphocytes % (Manual) Nucleated RBC % Lymphocytes # (Manual) POC ABG pH POC ABG pCO2 POC ABG pO2 Sodium Potassium Chloride Carbon Dioxide BUN Creatinine Glucose POC Glucose 166 H 178 H Lactic Acid Calcium Phosphorus 5.00 H D Magnesium CK-MB (CK-2) Troponin T C-Reactive Protein Triglycerides Cholesterol HDL Cholesterol Urine Creatinine Urine Total Protein 12/05/16 12/05/16 12/05/16 17:08 18:08 18:51 WBC RBC Hgb Hct MCV MCHC RDW Seg Neuts % (Manual) Lymphocytes % (Manual) Nucleated RBC % Lymphocytes # (Manual) POC ABG pH POC ABG pCO2 POC ABG pO2 Sodium Potassium Chloride Carbon Dioxide BUN Creatinine Glucose POC Glucose 169 H 147 H 113 H Lactic Acid Calcium Phosphorus Magnesium CK-MB (CK-2) Troponin T C-Reactive Protein Triglycerides Cholesterol HDL Cholesterol Urine Creatinine Urine Total Protein 12/05/16 12/05/16 12/05/16 20:04 21:34 22:08 WBC RBC Hgb Hct MCV MCHC RDW Seg Neuts % (Manual) Lymphocytes % (Manual) Nucleated RBC % Lymphocytes # (Manual) POC ABG pH 7.303 L POC ABG pCO2 18.3 L POC ABG pO2 73 L Sodium Potassium Chloride Carbon Dioxide BUN Creatinine Glucose POC Glucose 64 L 141 H Lactic Acid Calcium Phosphorus Magnesium CK-MB (CK-2) Troponin T C-Reactive Protein Triglycerides Cholesterol HDL Cholesterol Urine Creatinine Urine Total Protein 12/05/16 12/06/16 12/06/16 23:19 00:01 01:09 WBC RBC Hgb Hct MCV MCHC RDW Seg Neuts % (Manual) Lymphocytes % (Manual) Nucleated RBC % Lymphocytes # (Manual) POC ABG pH POC ABG pCO2 POC ABG pO2 Sodium Potassium Chloride Carbon Dioxide BUN Creatinine Glucose POC Glucose 200 H 211 H 116 H Lactic Acid Calcium Phosphorus Magnesium CK-MB (CK-2) Troponin T C-Reactive Protein Triglycerides Cholesterol HDL Cholesterol Urine Creatinine Urine Total Protein 12/06/16 12/06/16 12/06/16 02:00 04:14 04:50 WBC RBC 2.68 L Hgb 7.6 L Hct 23.2 L MCV MCHC RDW 18.9 H Seg Neuts % (Manual) 32.0 L Lymphocytes % (Manual) Nucleated RBC % 3.0 H Lymphocytes # (Manual) 0.9 L POC ABG pH POC ABG pCO2 POC ABG pO2 Sodium Potassium Chloride Carbon Dioxide BUN Creatinine Glucose POC Glucose 57 L 133 H Lactic Acid Calcium Phosphorus Magnesium CK-MB (CK-2) Troponin T C-Reactive Protein Triglycerides Cholesterol HDL Cholesterol Urine Creatinine Urine Total Protein 12/06/16 12/06/16 12/06/16 04:50 04:50 05:04 WBC RBC Hgb Hct MCV MCHC RDW Seg Neuts % (Manual) Lymphocytes % (Manual) Nucleated RBC % Lymphocytes # (Manual) POC ABG pH POC ABG pCO2 13.0 L POC ABG pO2 111 H Sodium Potassium 5.8 H D Chloride 111.5 H Carbon Dioxide 11 L BUN 52 H Creatinine 3.8 H Glucose 186 H POC Glucose Lactic Acid 6.50 H* Calcium 6.5 L D Phosphorus 5.80 H Magnesium CK-MB (CK-2) Troponin T C-Reactive Protein Triglycerides Cholesterol HDL Cholesterol Urine Creatinine Urine Total Protein 12/06/16 12/06/16 12/06/16 05:07 06:10 06:54 WBC RBC Hgb Hct MCV MCHC RDW Seg Neuts % (Manual) Lymphocytes % (Manual) Nucleated RBC % Lymphocytes # (Manual) POC ABG pH POC ABG pCO2 POC ABG pO2 Sodium Potassium Chloride Carbon Dioxide BUN Creatinine Glucose POC Glucose 127 H 219 H 237 H Lactic Acid Calcium Phosphorus Magnesium CK-MB (CK-2) Troponin T C-Reactive Protein Triglycerides Cholesterol HDL Cholesterol Urine Creatinine Urine Total Protein 12/06/16 12/06/16 12/06/16 07:46 08:55 10:27 WBC RBC Hgb Hct MCV MCHC RDW Seg Neuts % (Manual) Lymphocytes % (Manual) Nucleated RBC % Lymphocytes # (Manual) POC ABG pH POC ABG pCO2 POC ABG pO2 Sodium Potassium Chloride Carbon Dioxide BUN Creatinine Glucose POC Glucose 158 H 40 L 128 H Lactic Acid Calcium Phosphorus Magnesium CK-MB (CK-2) Troponin T C-Reactive Protein Triglycerides Cholesterol HDL Cholesterol Urine Creatinine Urine Total Protein 12/06/16 11:58 WBC RBC Hgb Hct MCV MCHC RDW Seg Neuts % (Manual) Lymphocytes % (Manual) Nucleated RBC % Lymphocytes # (Manual) POC ABG pH POC ABG pCO2 POC ABG pO2 Sodium Potassium Chloride Carbon Dioxide BUN Creatinine Glucose POC Glucose 144 H Lactic Acid Calcium Phosphorus Magnesium CK-MB (CK-2) Troponin T C-Reactive Protein Triglycerides Cholesterol HDL Cholesterol Urine Creatinine Urine Total Protein Chest x-ray: image reviewed (new RUL infiltrate)
[2016-12-06] MEDS ORDERED: SODIUM BICARBONATE FEEDTUBE PRN (15:08)
[2016-12-06] MEDS ORDERED: SIMPLE SYRUP FEEDTUBE PRN ×2 (15:08)
[2016-12-06] MEDS ORDERED: PANCREAZE DR 10,500 UNIT FEEDTUBE PRN (15:08)
--- NOTE | 2016-12-06 16:16 | XRay Report ---
FINAL REPORT PROCEDURE: XR ABDOMEN 1V AP TECHNIQUE: Single-view abdomen HISTORY: NG tube placement COMPARISON: No prior studies are available for comparison. FINDINGS: NG tube seen along the course of distal esophagus curling in the fundus of the stomach laterally terminating back towards the upper fundal region pointed just beyond the esophagogastric junction. If antral or duodenal positioning of the NG tube is desired adjustment is needed IMPRESSION: NG tube curled in the fundus of the stomach as above
[2016-12-06] MEDS: REGLAN IV SCH (17:15)
[2016-12-06] MEDS: NOVOLOG SUB-Q SCH (18:22)
[2016-12-06 20:03] LABS: BUN/Creatinine Ratio 13.02; Chloride 115.9 mmol/L (98-107); Potassium 5.6 mmol/L (3.6-5.0)
[2016-12-06 22:09] LABS: ISTAT Base Excess -14; ISTAT HCO3 10.7; ISTAT PH 7.406 (7.35-7.45); ISTAT PO2 142 (80-105); ISTAT SO2 99; ISTAT TCO2 11
[2016-12-06] MEDS: MORPHINE IV PRN (22:58)
[2016-12-07] MEDS: REGLAN IV SCH ×4 (00:05→23:36)
[2016-12-07] MEDS: HEPARIN SUB-Q SCH ×2 (02:00→14:11)
[2016-12-07] MEDS: LEVOPHED 8 MG in NACL 0.9% 250ML 242 ML IV SCH ×2 (05:29→22:09)
[2016-12-07] MEDS: ZOSYN/NS 2.25 GM/50ML 2.25 GM/50 ML BAG IV SCH ×3 (05:35→22:09)
[2016-12-07] MEDS: NOVOLOG SUB-Q SCH ×5 (05:44→23:48)
[2016-12-07 06:06] LABS: ISTAT Base Excess -18; ISTAT HCO3 8.4; ISTAT PCO2 17.1 (35-45); ISTAT PO2 140 (80-105); ISTAT SO2 99; ISTAT TCO2 9
[2016-12-07] MEDS: DIPRIVAN 10 MG/ML 1,000 MG/100 ML BOTTLE IV SCH (07:00)
[2016-12-07 07:09] LABS: Hematocrit 22.1 % (30.3-42.9); Hemoglobin 7.1 gm/dl (10.1-14.3); Mean Corpuscular HGB Conc 32 % (30-34); Mean Corpuscular Hemoglobin 28 pg (28-32); Mean Corpuscular Volume 87 fl (79-97); Red Blood Count 2.52 M/mm3 (3.65-5.03); Red Cell Distribution Width 19.3 % (13.2-15.2)
[2016-12-07 07:11] LABS: Platelet Count 90 K/mm3 (140-440)
--- NOTE | 2016-12-07 07:16 | XRay Report ---
AP CHEST: HISTORY: Followup respiratory failure Lines and support devices remain in the same position. No significant change in the right upper lobe infiltrate. The remainder of the lungs are clear. No pleural effusion or pneumothorax. Heart and mediastinal structures are within normal limits. IMPRESSION: No change.
[2016-12-07 08:10] LABS: Potassium TNR mmol/L (3.6-5.0); Sodium TNR mmol/L (137-145)
[2016-12-07 08:11] LABS: Anion Gap TNR mmol/L; BUN/Creatinine Ratio TNR; Blood Urea Nitrogen TNR mg/dL (7-17); Calcium TNR mg/dL (8.4-10.2); Carbon Dioxide TNR mmol/L (22-30); Chloride TNR mmol/L (98-107); Glucose TNR mg/dL (65-100)
--- NOTE | 2016-12-07 08:38 | Progress Note ---
Assessment and Plan Acute respiratory failure vent weaning per pulmonary Cardiac arrest PEA arrest-->V. fib/?torsades-->shocked twice, received amiodarone 300 mg amiodarone gtt discontinued Echo 11/2016: EF 40-45%, repeat echo EF 40-45% Abnormal EKG/ST elevation Given pt.'s condition, resolution of ST elevation and recent subarachnoid bleed pt. not a candidate for cardiac cath Hypotension wean pressors to maintain MAP > 65 continue IV hydration Nstemi type 2 DKA Hyperkalemia Acute on chronic renal failure Anemia Recent subarachnoid hemorrhage Altered mental status The patient has been seen in conjunction with Dr. Mora who agrees with the assessment and plan of care. Subjective Date of service: 12/07/16 Principal diagnosis: Severe Sepsis; DKA, cardiac arrest Interval history: The patient remains intubated and sedated. She is arousable to voice and touch. Sinus rhythm on the monitor. Objective Last Vital Signs Temp 98.2 F 12/07/16 07:24 Pulse 92 H 12/07/16 08:58 Resp 29 H 12/07/16 08:15 BP 96/59 12/07/16 08:58 Pulse Ox 100 12/07/16 08:58 - Physical Examination General: No Apparent Distress (intubated, sedated ) HEENT: Positive: Normocephaly Neck: Positive: neck supple, trachea midline Cardiac: Positive: Reg Rate and Rhythm, S1/S2 Lungs: Positive: clear to auscultation Neuro: Positive: Other (intubated, sedated) Abdomen: Positive: Soft Skin: Negative: Rash Extremities: Present: normal. Absent: edema - Labs and Meds CBC 12/07/16 Range/Units 06:00 WBC 6.5 (4.5-11.0) K/mm3 RBC 2.52 L (3.65-5.03) M/mm3 Hgb 7.1 L (10.1-14.3) gm/dl Hct 22.1 L (30.3-42.9) % Plt Count 90 L (140-440) K/mm3 Comprehensive Metabolic Panel 12/06/16 12/07/16 12/07/16 Range/Units 19:00 06:00 06:00 Sodium 149 H TNR 144 (137-145) mmol/L Potassium 5.6 H TNR (3.6-5.0) mmol/L Chloride 115.9 H TNR 113.6 H (98-107) mmol/L Carbon Dioxide 13 L TNR (22-30) mmol/L BUN 56 H TNR 59 H (7-17) mg/dL Creatinine 4.3 H TNR 4.8 H (0.7-1.2) mg/dL Glucose 124 H TNR 292 H (65-100) mg/dL Calcium 6.0 L TNR (8.4-10.2) mg/dL Alkaline Phosphatase 164 H (35-129) units/L Albumin 1.8 L (3.9-5) g/dL - Imaging and Cardiology Echo: report reviewed (11/2016: EF 40-45% repeat echo EF 40-45%) - Telemetry EKG Rhythm: Sinus Rhythm
[2016-12-07 08:42] LABS: Anion Gap TNR mmol/L; Carbon Dioxide TNR mmol/L (22-30); Chloride TNR mmol/L (98-107); Potassium TNR mmol/L (3.6-5.0); Sodium TNR mmol/L (137-145)
[2016-12-07 08:43] LABS: Alanine Aminotransferase TNR units/L (7-56); Albumin TNR g/dL (3.9-5); Albumin/Globulin Ratio TNR %; Alkaline Phosphatase TNR units/L (35-129); BUN/Creatinine Ratio TNR; Bilirubin,Total TNR mg/dL (0.1-1.2); Blood Urea Nitrogen TNR mg/dL (7-17); Calcium TNR mg/dL (8.4-10.2); Glucose TNR mg/dL (65-100); Total Protein TNR g/dL (6.3-8.2)
[2016-12-07 09:37] LABS: Basophils % (Manual) 0 % (0.0-1.8); Blastocytes % (Manual) 0 %; Eosinophils % (Manual) 0 % (0.0-4.3)
[2016-12-07 09:37] LABS: BUN/Creatinine Ratio 11.96; Chloride 112.4 mmol/L (98-107)
[2016-12-07 09:38] LABS: Acanthocytes 1+; Anisocytosis 1+; Burr Cells 2+; Poikilocytosis 2+; Target Cells Few; White Blood Count 6.5 K/mm3 (4.5-11.0)
[2016-12-07 09:39] LABS: Diff Status Complete; Dohle Bodies 1+; Platelet Estimate Consistent w Auto
[2016-12-07 09:55] LABS: Calcium 5.8 mg/dL (8.4-10.2)
[2016-12-07] MEDS ORDERED: SIMPLE SYRUP FEEDTUBE PRN (10:04)
[2016-12-07] MEDS ORDERED: PANCREAZE DR 10,500 UNIT FEEDTUBE PRN (10:04)
[2016-12-07] MEDS ORDERED: SODIUM BICARBONATE FEEDTUBE PRN (10:04)
[2016-12-07] MEDS ORDERED: KIONEX ONE ×2 (10:12→10:13)
[2016-12-07] MEDS ORDERED: CALCIUM GLUCONATE 2,000 MG in NACL 0.9% 100 ML IV ONE (11:00)
[2016-12-07] MEDS ORDERED: KIONEX PO ONE (11:00)
[2016-12-07] MEDS ORDERED: D50W (25GM) IV ONE ×2 (11:00)
[2016-12-07] MEDS: PEPCID IV SCH (11:26)
--- NOTE | 2016-12-07 11:44 | Progress Note ---
Assessment and Plan - Patient Problems (1) Cardiac arrest Current Visit: Yes Status: Acute Plan to address problem: followed by cardiology (2) DKA (diabetic ketoacidoses) Current Visit: No Status: Acute Qualifiers: Diabetes mellitus type: type 1 Diabetes mellitus complication detail: with coma Diabetes mellitus longterm insulin use: D Qualified Code(s): E10.11 - Type 1 diabetes mellitus with ketoacidosis with coma Plan to address problem: switched sq insulin (3) Acute hypernatremia Current Visit: No Status: Acute Plan to address problem: resolved, cont free water flushes via NGT (4) Acute kidney failure with tubular necrosis Current Visit: No Status: Acute Plan to address problem: secondary to ischemic ATN from shock HD today for clearance and volume removal after vascath placement will assess dialysis needs daily strict I&O daily weight renal diet (5) Hyperkalemia Current Visit: No Status: Resolved Plan to address problem: received IV insulin with D50W, kayexelate and calcium gluconate HD ordered as above (6) Respiratory failure Current Visit: No Status: Resolved Qualifiers: Chronicity: acute Respiratory failure complication: unspecified whether with hypoxia or hypercapnia Qualified Code(s): J96.00 - Acute respiratory failure, unspecified whether with hypoxia or hypercapnia Plan to address problem: vent management per primary team Subjective Date of service: 12/07/16 Principal diagnosis: Severe Sepsis; DKA, cardiac arrest Interval history: sedated and intubated, no family at bedside Objective - Vital Signs Vital signs: Vital Signs - 12hr 12/06/16 12/06/16 12/07/16 23:45 23:53 00:00 Temperature 99.2 F Pulse Rate 104 H 103 H 106 H Pulse Rate [ From Monitor] Respiratory 25 H 25 H 25 H Rate Blood Pressure 100/72 100/72 98/65 O2 Sat by Pulse 99 98 100 Oximetry 12/07/16 12/07/16 12/07/16 00:15 00:25 00:30 Temperature Pulse Rate 106 H 101 H Pulse Rate [ 106 H From Monitor] Respiratory 25 H 24 25 H Rate Blood Pressure 105/79 101/70 O2 Sat by Pulse 95 98 98 Oximetry 12/07/16 12/07/16 12/07/16 00:45 01:00 01:15 Temperature Pulse Rate 97 H 102 H 101 H Pulse Rate [ From Monitor] Respiratory 25 H 25 H 25 H Rate Blood Pressure 102/69 99/68 94/60 O2 Sat by Pulse 97 97 99 Oximetry 12/07/16 12/07/16 12/07/16 01:30 01:45 02:00 Temperature Pulse Rate 99 H 98 H 97 H Pulse Rate [ From Monitor] Respiratory 25 H 23 25 H Rate Blood Pressure 102/69 102/71 102/69 O2 Sat by Pulse 98 98 98 Oximetry 12/07/16 12/07/16 12/07/16 02:15 02:30 02:45 Temperature Pulse Rate 97 H 96 H 95 H Pulse Rate [ From Monitor] Respiratory 25 H 25 H 25 H Rate Blood Pressure 112/75 109/66 106/69 O2 Sat by Pulse 96 99 97 Oximetry 12/07/16 12/07/16 12/07/16 03:00 03:15 03:31 Temperature Pulse Rate 94 H 100 H 105 H Pulse Rate [ From Monitor] Respiratory 21 23 22 Rate Blood Pressure 99/67 99/67 92/57 O2 Sat by Pulse 95 91 Oximetry 12/07/16 12/07/16 12/07/16 03:45 04:00 04:15 Temperature 99.0 F Pulse Rate 103 H 99 H 101 H Pulse Rate [ From Monitor] Respiratory 25 H 24 25 H Rate Blood Pressure 93/56 82/51 85/51 O2 Sat by Pulse 100 100 100 Oximetry 12/07/16 12/07/16 12/07/16 04:25 04:30 04:45 Temperature Pulse Rate 96 H 94 H Pulse Rate [ 98 H From Monitor] Respiratory 21 25 H 25 H Rate Blood Pressure 87/51 83/52 O2 Sat by Pulse 99 99 100 Oximetry 12/07/16 12/07/16 12/07/16 05:00 05:02 05:15 Temperature Pulse Rate 91 H 92 H 85 Pulse Rate [ From Monitor] Respiratory 25 H 25 H Rate Blood Pressure 89/54 84/48 101/55 O2 Sat by Pulse 100 100 100 Oximetry 12/07/16 12/07/16 12/07/16 05:30 05:45 06:00 Temperature Pulse Rate 80 86 81 Pulse Rate [ From Monitor] Respiratory 20 26 H 25 H Rate Blood Pressure 99/52 100/55 100/57 O2 Sat by Pulse 100 100 100 Oximetry 12/07/16 12/07/16 12/07/16 06:15 06:30 06:45 Temperature Pulse Rate 85 86 87 Pulse Rate [ From Monitor] Respiratory 27 H 29 H 28 H Rate Blood Pressure 110/60 102/57 105/55 O2 Sat by Pulse 100 100 100 Oximetry 12/07/16 12/07/16 12/07/16 07:00 07:15 07:24 Temperature 98.2 F Pulse Rate 84 87 Pulse Rate [ From Monitor] Respiratory 28 H 29 H Rate Blood Pressure 91/52 86/52 O2 Sat by Pulse 100 100 Oximetry 12/07/16 12/07/16 12/07/16 07:30 07:45 08:00 Temperature Pulse Rate 87 89 91 H Pulse Rate [ From Monitor] Respiratory 27 H 28 H 28 H Rate Blood Pressure 93/59 92/57 99/60 O2 Sat by Pulse 100 100 100 Oximetry 12/07/16 12/07/16 08:15 08:58 Temperature Pulse Rate 90 92 H Pulse Rate [ From Monitor] Respiratory 29 H Rate Blood Pressure 97/60 96/59 O2 Sat by Pulse 100 100 Oximetry - General Appearance General appearance: sedated on ventilator, intubated EENT: mucous membranes dry Neck: no JVD, no carotid bruit Respiratory: Present: Decreased Breath Sounds Cardiology: tachycardia Gastrointestinal: hypoactive bowel sounds Integumentary: no rash, warm and dry Neurologic: other (sedated) Musculoskeletal: other (no edema in BLE) Psychiatric: other (sedated and intubated) - Lab 12/07/16 06:00 12/07/16 08:40 Most recent lab results Calcium 5.8 mg/dL (8.4-10.2) L* 12/07/16 08:40 Phosphorus 6.80 mg/dL (2.5-4.5) H 12/07/16 06:00 Magnesium 2.20 mg/dL (1.7-2.3) 12/07/16 06:00 Urine Creatinine 29.5 mg/dL (0.1-20.0) H 12/04/16 11:25 Urine Sodium 26 mEq/L 12/04/16 11:25 Urine Total Protein 33 mg/dL (5-11.8) H 12/04/16 11:25
--- NOTE | 2016-12-07 12:31 | Progress Note ---
Assessment and Plan - Patient Problems (1) Severe sepsis Current Visit: Yes Status: Acute Plan to address problem: - continue wean levophed for MAP > 60mmHg - continue empiric AB's and follow cultures - continue to trend lactate and CRP as necessary - s/p PICC line - send new tracheal aspirate for C&S - blood cultures growing coag -ve staph in 1 of 4 bottles and likely contaminant - discontinue vancomycin empirically in setting of ASHELY - hopefully HD/UF improves clinical picture also (2) Cardiac arrest Current Visit: Yes Status: Acute Plan to address problem: - achieved ROSC and no recurrence - avoid severe acidosis and continue to treat sepsis and azotemia (3) Acute renal failure Current Visit: No Status: Acute Qualifiers: Acute renal failure type: A Plan to address problem: - continue free water flushes for hypernatremia - per nephrology otherwise - HD/UF beginning today - input appreciated (4) Acute respiratory failure with hypoxemia Current Visit: No Status: Acute Plan to address problem: - acid-base balance improving - will reduce set minute ventilation further (reduced rate to 25/min) - continue bronchodilators and pulmonary toilet - continuing aspiration precautions and addressed VAP bundle - continue to wean oxygen for sats > 94% (5) DKA (diabetic ketoacidoses) Current Visit: Yes Status: Acute Qualifiers: Diabetes mellitus type: type 1 Diabetes mellitus complication detail: with coma Diabetes mellitus long term care social worker insulin use: D Qualified Code(s): E10.11 - Type 1 diabetes mellitus with ketoacidosis with coma Plan to address problem: - off IV insulin - enteral nutrition started and tolerating well so far - begin SSI (6) Discharge planning issues Current Visit: No Status: Acute Plan to address problem: - improving ...she remains critically ill on life sustaining interventions including MVS and at high risk for further deterioration including ..30' CCT Subjective Date of service: 12/07/16 Principal diagnosis: Severe Sepsis; DKA, cardiac arrest Interval history: Seen and examined at bedside; 24 hour events reviewed; nursing and respiratory care staff consulted; no adverse overnight events reported to me; to begin dialysis today; remains appropriate during sedation holidays; no emesis or overt aspiration Objective Vital Signs - 12hr 12/07/16 12/07/16 12/07/16 00:45 01:00 01:15 Temperature Pulse Rate 97 H 102 H 101 H Pulse Rate [ From Monitor] Respiratory 25 H 25 H 25 H Rate Blood Pressure 102/69 99/68 94/60 O2 Sat by Pulse 97 97 99 Oximetry 12/07/16 12/07/16 12/07/16 01:30 01:45 02:00 Temperature Pulse Rate 99 H 98 H 97 H Pulse Rate [ From Monitor] Respiratory 25 H 23 25 H Rate Blood Pressure 102/69 102/71 102/69 O2 Sat by Pulse 98 98 98 Oximetry 12/07/16 12/07/16 12/07/16 02:15 02:30 02:45 Temperature Pulse Rate 97 H 96 H 95 H Pulse Rate [ From Monitor] Respiratory 25 H 25 H 25 H Rate Blood Pressure 112/75 109/66 106/69 O2 Sat by Pulse 96 99 97 Oximetry 12/07/16 12/07/16 12/07/16 03:00 03:15 03:31 Temperature Pulse Rate 94 H 100 H 105 H Pulse Rate [ From Monitor] Respiratory 21 23 22 Rate Blood Pressure 99/67 99/67 92/57 O2 Sat by Pulse 95 91 Oximetry 12/07/16 12/07/16 12/07/16 03:45 04:00 04:15 Temperature 99.0 F Pulse Rate 103 H 99 H 101 H Pulse Rate [ From Monitor] Respiratory 25 H 24 25 H Rate Blood Pressure 93/56 82/51 85/51 O2 Sat by Pulse 100 100 100 Oximetry 12/07/16 12/07/16 12/07/16 04:25 04:30 04:45 Temperature Pulse Rate 96 H 94 H Pulse Rate [ 98 H From Monitor] Respiratory 21 25 H 25 H Rate Blood Pressure 87/51 83/52 O2 Sat by Pulse 99 99 100 Oximetry 12/07/16 12/07/16 12/07/16 05:00 05:02 05:15 Temperature Pulse Rate 91 H 92 H 85 Pulse Rate [ From Monitor] Respiratory 25 H 25 H Rate Blood Pressure 89/54 84/48 101/55 O2 Sat by Pulse 100 100 100 Oximetry 12/07/16 12/07/16 12/07/16 05:30 05:45 06:00 Temperature Pulse Rate 80 86 81 Pulse Rate [ From Monitor] Respiratory 20 26 H 25 H Rate Blood Pressure 99/52 100/55 100/57 O2 Sat by Pulse 100 100 100 Oximetry 12/07/16 12/07/16 12/07/16 06:15 06:30 06:45 Temperature Pulse Rate 85 86 87 Pulse Rate [ From Monitor] Respiratory 27 H 29 H 28 H Rate Blood Pressure 110/60 102/57 105/55 O2 Sat by Pulse 100 100 100 Oximetry 12/07/16 12/07/16 12/07/16 07:00 07:15 07:24 Temperature 98.2 F Pulse Rate 84 87 Pulse Rate [ From Monitor] Respiratory 28 H 29 H Rate Blood Pressure 91/52 86/52 O2 Sat by Pulse 100 100 Oximetry 12/07/16 12/07/16 12/07/16 07:30 07:45 08:00 Temperature Pulse Rate 87 89 91 H Pulse Rate [ From Monitor] Respiratory 27 H 28 H 28 H Rate Blood Pressure 93/59 92/57 99/60 O2 Sat by Pulse 100 100 100 Oximetry 12/07/16 12/07/16 12/07/16 08:15 08:30 08:45 Temperature Pulse Rate 90 90 93 H Pulse Rate [ From Monitor] Respiratory 29 H 28 H 29 H Rate Blood Pressure 97/60 98/62 96/59 O2 Sat by Pulse 100 100 100 Oximetry 12/07/16 12/07/16 12/07/16 08:58 09:00 09:15 Temperature Pulse Rate 92 H 91 H 96 H Pulse Rate [ From Monitor] Respiratory 22 27 H Rate Blood Pressure 96/59 99/60 95/59 O2 Sat by Pulse 100 100 100 Oximetry 12/07/16 12/07/16 12/07/16 09:30 09:45 10:00 Temperature Pulse Rate 92 H 93 H 90 Pulse Rate [ From Monitor] Respiratory 25 H 25 H 25 H Rate Blood Pressure 97/61 91/58 99/60 O2 Sat by Pulse 100 100 100 Oximetry 12/07/16 12/07/16 12/07/16 10:15 10:30 10:45 Temperature Pulse Rate 87 85 84 Pulse Rate [ From Monitor] Respiratory 24 25 H 25 H Rate Blood Pressure 95/58 91/59 97/65 O2 Sat by Pulse 100 100 100 Oximetry 12/07/16 12/07/16 12/07/16 11:01 11:15 11:30 Temperature Pulse Rate 99 H 93 H 97 H Pulse Rate [ From Monitor] Respiratory 15 26 H 26 H Rate Blood Pressure 95/67 106/63 110/71 O2 Sat by Pulse 81 L 100 100 Oximetry 12/07/16 12/07/16 12/07/16 11:45 12:00 12:22 Temperature Pulse Rate 98 H 97 H 97 H Pulse Rate [ From Monitor] Respiratory 28 H 28 H Rate Blood Pressure 107/72 102/72 99/69 O2 Sat by Pulse 100 100 100 Oximetry Constitutional: appears uncomfortable, other (sedated) Eyes: non-icteric ENT: oropharynx moist Neck: supple, no lymphadenopathy Effort: mildly labored Ascultation: Bilateral: diminished breath sounds, rales Cardiovascular: regular rate and rhythm, other (SVT) Gastrointestinal: normoactive bowel sounds, soft, non-tender, non-distended Integumentary: normal Extremities: no cyanosis, no edema, pulses normal, no ischemia or petechiae Neurologic: normal mental status, non-focal exam, pupils equal and round, motor strength normal and, other (sedated) Psychiatric: other (unable to assess) CBC and BMP: 12/08/16 04:50 12/08/16 08:46 ABG, PT/INR, D-dimer: ABG POC ABG pH 7.300 (7.35-7.45) L 12/07/16 05:01 POC ABG pCO2 17.1 (35-45) L 12/07/16 05:01 POC ABG pO2 140 (80-105) H 12/07/16 05:01 POC ABG HCO3 8.4 12/07/16 05:01 POC ABG Total CO2 9 12/07/16 05:01 POC ABG O2 Sat 99 12/07/16 05:01 PT/INR, D-dimer PT 17.7 Sec. (12.2-14.9) H 12/03/16 23:20 INR 1.46 (0.87-1.13) H 12/03/16 23:20 Abnormal lab findings: Abnormal Labs 12/04/16 12/04/16 12/04/16 01:19 01:36 02:21 WBC RBC Hgb Hct MCV MCHC RDW Plt Count Seg Neuts % (Manual) Lymphocytes % (Manual) Nucleated RBC % Lymphocytes # (Manual) POC ABG pH 6.759 L POC ABG pCO2 POC ABG pO2 437 H Sodium Potassium Chloride Carbon Dioxide BUN Creatinine Glucose POC Glucose > 500 H Lactic Acid Calcium Phosphorus 15.70 H Magnesium 4.30 H CK-MB (CK-2) Troponin T C-Reactive Protein Triglycerides Cholesterol HDL Cholesterol Urine Creatinine Urine Total Protein 12/04/16 12/04/16 12/04/16 03:55 04:00 05:11 WBC RBC Hgb Hct MCV MCHC RDW Plt Count Seg Neuts % (Manual) Lymphocytes % (Manual) Nucleated RBC % Lymphocytes # (Manual) POC ABG pH POC ABG pCO2 POC ABG pO2 Sodium Potassium Chloride 91.4 L Carbon Dioxide 8 L* BUN 55 H Creatinine 2.8 H Glucose 1610 H* POC Glucose > 500 H > 500 H Lactic Acid Calcium Phosphorus Magnesium CK-MB (CK-2) Troponin T C-Reactive Protein Triglycerides Cholesterol HDL Cholesterol Urine Creatinine Urine Total Protein 12/04/16 12/04/16 12/04/16 05:40 05:54 06:58 WBC RBC Hgb Hct MCV MCHC RDW Plt Count Seg Neuts % (Manual) Lymphocytes % (Manual) Nucleated RBC % Lymphocytes # (Manual) POC ABG pH 7.154 L POC ABG pCO2 27.5 L POC ABG pO2 111 H Sodium Potassium Chloride Carbon Dioxide BUN Creatinine Glucose POC Glucose > 500 H > 500 H Lactic Acid Calcium Phosphorus Magnesium CK-MB (CK-2) Troponin T C-Reactive Protein Triglycerides Cholesterol HDL Cholesterol Urine Creatinine Urine Total Protein 12/04/16 12/04/16 12/04/16 07:49 07:55 07:55 WBC RBC Hgb Hct MCV MCHC RDW Plt Count Seg Neuts % (Manual) Lymphocytes % (Manual) Nucleated RBC % Lymphocytes # (Manual) POC ABG pH POC ABG pCO2 POC ABG pO2 Sodium Potassium 3.3 L Chloride Carbon Dioxide 9 L* BUN 53 H Creatinine 2.9 H Glucose 1229 H* POC Glucose > 500 H Lactic Acid Calcium Phosphorus Magnesium CK-MB (CK-2) Troponin T 0.111 H* D C-Reactive Protein Triglycerides 570 H Cholesterol 221 H HDL Cholesterol 37 L Urine Creatinine Urine Total Protein 12/04/16 12/04/16 12/04/16 07:55 09:55 09:55 WBC RBC 2.90 L Hgb 8.5 L Hct 30.2 L D MCV 105 H D MCHC 28 L RDW 19.2 H Plt Count Seg Neuts % (Manual) Lymphocytes % (Manual) 11.0 L Nucleated RBC % Lymphocytes # (Manual) 0.6 L POC ABG pH POC ABG pCO2 POC ABG pO2 Sodium Potassium 3.1 L Chloride Carbon Dioxide 7 L* BUN 51 H Creatinine 3.2 H Glucose 969 H* POC Glucose Lactic Acid Calcium 10.4 H D Phosphorus Magnesium CK-MB (CK-2) 4.6 H Troponin T 0.140 H* D C-Reactive Protein Triglycerides Cholesterol HDL Cholesterol Urine Creatinine Urine Total Protein 12/04/16 12/04/16 12/04/16 09:55 10:37 11:25 WBC RBC Hgb Hct MCV MCHC RDW Plt Count Seg Neuts % (Manual) Lymphocytes % (Manual) Nucleated RBC % Lymphocytes # (Manual) POC ABG pH 7.215 L POC ABG pCO2 18.8 L POC ABG pO2 193 H Sodium Potassium Chloride Carbon Dioxide BUN Creatinine Glucose POC Glucose Lactic Acid Calcium Phosphorus Magnesium 3.70 H CK-MB (CK-2) Troponin T C-Reactive Protein Triglycerides Cholesterol HDL Cholesterol Urine Creatinine 29.5 H Urine Total Protein 33 H 12/04/16 12/04/16 12/04/16 12:00 12:48 13:00 WBC RBC Hgb Hct MCV MCHC RDW Plt Count Seg Neuts % (Manual) Lymphocytes % (Manual) Nucleated RBC % Lymphocytes # (Manual) POC ABG pH POC ABG pCO2 POC ABG pO2 Sodium 149 H 150 H Potassium 3.2 L 3.2 L Chloride 109.1 H Carbon Dioxide 8 L* 8 L* BUN 52 H 49 H Creatinine 3.4 H 3.1 H Glucose 723 H* 574 H* POC Glucose Lactic Acid 18.80 H* Calcium Phosphorus Magnesium CK-MB (CK-2) Troponin T C-Reactive Protein Triglycerides Cholesterol HDL Cholesterol Urine Creatinine Urine Total Protein 12/04/16 12/04/16 12/04/16 13:01 14:41 16:06 WBC RBC Hgb Hct MCV MCHC RDW Plt Count Seg Neuts % (Manual) Lymphocytes % (Manual) Nucleated RBC % Lymphocytes # (Manual) POC ABG pH POC ABG pCO2 POC ABG pO2 Sodium 151 H Potassium 3.2 L Chloride 108.1 H Carbon Dioxide 10 L BUN 49 H Creatinine 3.0 H Glucose 383 H POC Glucose 292 H Lactic Acid Calcium Phosphorus Magnesium CK-MB (CK-2) Troponin T C-Reactive Protein 3.50 H Triglycerides Cholesterol HDL Cholesterol Urine Creatinine Urine Total Protein 12/04/16 12/04/16 12/04/16 17:15 17:25 18:07 WBC RBC Hgb Hct MCV MCHC RDW Plt Count Seg Neuts % (Manual) Lymphocytes % (Manual) Nucleated RBC % Lymphocytes # (Manual) POC ABG pH 7.255 L POC ABG pCO2 16.9 L POC ABG pO2 169 H Sodium Potassium Chloride Carbon Dioxide BUN Creatinine Glucose POC Glucose 246 H Lactic Acid 18.50 H* Calcium Phosphorus Magnesium CK-MB (CK-2) Troponin T C-Reactive Protein Triglycerides Cholesterol HDL Cholesterol Urine Creatinine Urine Total Protein 12/04/16 12/04/16 12/04/16 19:34 20:31 21:15 WBC RBC Hgb Hct MCV MCHC RDW Plt Count Seg Neuts % (Manual) Lymphocytes % (Manual) Nucleated RBC % Lymphocytes # (Manual) POC ABG pH POC ABG pCO2 POC ABG pO2 Sodium Potassium Chloride Carbon Dioxide BUN Creatinine Glucose POC Glucose 189 H 126 H 139 H Lactic Acid Calcium Phosphorus Magnesium CK-MB (CK-2) Troponin T C-Reactive Protein Triglycerides Cholesterol HDL Cholesterol Urine Creatinine Urine Total Protein 12/04/16 12/04/16 12/04/16 21:25 22:37 23:35 WBC RBC Hgb Hct MCV MCHC RDW Plt Count Seg Neuts % (Manual) Lymphocytes % (Manual) Nucleated RBC % Lymphocytes # (Manual) POC ABG pH 7.294 L POC ABG pCO2 16.7 L POC ABG pO2 169 H Sodium Potassium Chloride Carbon Dioxide BUN Creatinine Glucose POC Glucose 131 H 106 H Lactic Acid Calcium Phosphorus Magnesium CK-MB (CK-2) Troponin T C-Reactive Protein Triglycerides Cholesterol HDL Cholesterol Urine Creatinine Urine Total Protein 12/05/16 12/05/16 12/05/16 02:40 02:50 02:50 WBC RBC Hgb Hct MCV MCHC RDW Plt Count Seg Neuts % (Manual) Lymphocytes % (Manual) Nucleated RBC % Lymphocytes # (Manual) POC ABG pH POC ABG pCO2 POC ABG pO2 Sodium 151 H Potassium Chloride 113.8 H Carbon Dioxide 12 L BUN 46 H Creatinine 3.2 H Glucose 165 H POC Glucose 109 H Lactic Acid 9.80 H* Calcium 8.3 L Phosphorus Magnesium CK-MB (CK-2) Troponin T C-Reactive Protein Triglycerides Cholesterol HDL Cholesterol Urine Creatinine Urine Total Protein 12/05/16 12/05/16 12/05/16 04:01 04:30 04:30 WBC 19.1 H RBC 2.91 L Hgb 8.0 L Hct 25.4 L MCV MCHC RDW 17.8 H Plt Count Seg Neuts % (Manual) 17.0 L Lymphocytes % (Manual) 7.0 L Nucleated RBC % 3.0 H Lymphocytes # (Manual) POC ABG pH POC ABG pCO2 POC ABG pO2 Sodium 152 H Potassium Chloride 113.5 H Carbon Dioxide 12 L BUN 47 H Creatinine 3.2 H Glucose 133 H POC Glucose 179 H Lactic Acid Calcium 8.3 L Phosphorus 1.00 L D Magnesium CK-MB (CK-2) Troponin T C-Reactive Protein Triglycerides Cholesterol HDL Cholesterol Urine Creatinine Urine Total Protein 12/05/16 12/05/16 12/05/16 05:32 05:57 08:01 WBC RBC Hgb Hct MCV MCHC RDW Plt Count Seg Neuts % (Manual) Lymphocytes % (Manual) Nucleated RBC % Lymphocytes # (Manual) POC ABG pH 7.258 L POC ABG pCO2 18.6 L POC ABG pO2 33 L Sodium Potassium Chloride Carbon Dioxide BUN Creatinine Glucose POC Glucose 126 H 130 H Lactic Acid Calcium Phosphorus Magnesium CK-MB (CK-2) Troponin T C-Reactive Protein Triglycerides Cholesterol HDL Cholesterol Urine Creatinine Urine Total Protein 12/05/16 12/05/16 12/05/16 08:48 08:54 12:01 WBC RBC Hgb Hct MCV MCHC RDW Plt Count Seg Neuts % (Manual) Lymphocytes % (Manual) Nucleated RBC % Lymphocytes # (Manual) POC ABG pH POC ABG pCO2 17.6 L POC ABG pO2 62 L Sodium Potassium Chloride Carbon Dioxide BUN Creatinine Glucose POC Glucose 157 H 117 H Lactic Acid Calcium Phosphorus Magnesium CK-MB (CK-2) Troponin T C-Reactive Protein Triglycerides Cholesterol HDL Cholesterol Urine Creatinine Urine Total Protein 12/05/16 12/05/16 12/05/16 15:15 16:10 16:55 WBC RBC Hgb Hct MCV MCHC RDW Plt Count Seg Neuts % (Manual) Lymphocytes % (Manual) Nucleated RBC % Lymphocytes # (Manual) POC ABG pH POC ABG pCO2 POC ABG pO2 Sodium Potassium Chloride Carbon Dioxide BUN Creatinine Glucose POC Glucose 166 H 178 H Lactic Acid Calcium Phosphorus 5.00 H D Magnesium CK-MB (CK-2) Troponin T C-Reactive Protein Triglycerides Cholesterol HDL Cholesterol Urine Creatinine Urine Total Protein 12/05/16 12/05/16 12/05/16 17:08 18:08 18:51 WBC RBC Hgb Hct MCV MCHC RDW Plt Count Seg Neuts % (Manual) Lymphocytes % (Manual) Nucleated RBC % Lymphocytes # (Manual) POC ABG pH POC ABG pCO2 POC ABG pO2 Sodium Potassium Chloride Carbon Dioxide BUN Creatinine Glucose POC Glucose 169 H 147 H 113 H Lactic Acid Calcium Phosphorus Magnesium CK-MB (CK-2) Troponin T C-Reactive Protein Triglycerides Cholesterol HDL Cholesterol Urine Creatinine Urine Total Protein 12/05/16 12/05/16 12/05/16 20:04 21:34 22:08 WBC RBC Hgb Hct MCV MCHC RDW Plt Count Seg Neuts % (Manual) Lymphocytes % (Manual) Nucleated RBC % Lymphocytes # (Manual) POC ABG pH 7.303 L POC ABG pCO2 18.3 L POC ABG pO2 73 L Sodium Potassium Chloride Carbon Dioxide BUN Creatinine Glucose POC Glucose 64 L 141 H Lactic Acid Calcium Phosphorus Magnesium CK-MB (CK-2) Troponin T C-Reactive Protein Triglycerides Cholesterol HDL Cholesterol Urine Creatinine Urine Total Protein 12/05/16 12/06/16 12/06/16 23:19 00:01 01:09 WBC RBC Hgb Hct MCV MCHC RDW Plt Count Seg Neuts % (Manual) Lymphocytes % (Manual) Nucleated RBC % Lymphocytes # (Manual) POC ABG pH POC ABG pCO2 POC ABG pO2 Sodium Potassium Chloride Carbon Dioxide BUN Creatinine Glucose POC Glucose 200 H 211 H 116 H Lactic Acid Calcium Phosphorus Magnesium CK-MB (CK-2) Troponin T C-Reactive Protein Triglycerides Cholesterol HDL Cholesterol Urine Creatinine Urine Total Protein 12/06/16 12/06/16 12/06/16 02:00 04:14 04:50 WBC RBC 2.68 L Hgb 7.6 L Hct 23.2 L MCV MCHC RDW 18.9 H Plt Count Seg Neuts % (Manual) 32.0 L Lymphocytes % (Manual) Nucleated RBC % 3.0 H Lymphocytes # (Manual) 0.9 L POC ABG pH POC ABG pCO2 POC ABG pO2 Sodium Potassium Chloride Carbon Dioxide BUN Creatinine Glucose POC Glucose 57 L 133 H Lactic Acid Calcium Phosphorus Magnesium CK-MB (CK-2) Troponin T C-Reactive Protein Triglycerides Cholesterol HDL Cholesterol Urine Creatinine Urine Total Protein 12/06/16 12/06/16 12/06/16 04:50 04:50 05:04 WBC RBC Hgb Hct MCV MCHC RDW Plt Count Seg Neuts % (Manual) Lymphocytes % (Manual) Nucleated RBC % Lymphocytes # (Manual) POC ABG pH POC ABG pCO2 13.0 L POC ABG pO2 111 H Sodium Potassium 5.8 H D Chloride 111.5 H Carbon Dioxide 11 L BUN 52 H Creatinine 3.8 H Glucose 186 H POC Glucose Lactic Acid 6.50 H* Calcium 6.5 L D Phosphorus 5.80 H Magnesium CK-MB (CK-2) Troponin T C-Reactive Protein Triglycerides Cholesterol HDL Cholesterol Urine Creatinine Urine Total Protein 12/06/16 12/06/16 12/06/16 05:07 06:10 06:54 WBC RBC Hgb Hct MCV MCHC RDW Plt Count Seg Neuts % (Manual) Lymphocytes % (Manual) Nucleated RBC % Lymphocytes # (Manual) POC ABG pH POC ABG pCO2 POC ABG pO2 Sodium Potassium Chloride Carbon Dioxide BUN Creatinine Glucose POC Glucose 127 H 219 H 237 H Lactic Acid Calcium Phosphorus Magnesium CK-MB (CK-2) Troponin T C-Reactive Protein Triglycerides Cholesterol HDL Cholesterol Urine Creatinine Urine Total Protein 12/06/16 12/06/16 12/06/16 07:46 08:55 10:27 WBC RBC Hgb Hct MCV MCHC RDW Plt Count Seg Neuts % (Manual) Lymphocytes % (Manual) Nucleated RBC % Lymphocytes # (Manual) POC ABG pH POC ABG pCO2 POC ABG pO2 Sodium Potassium Chloride Carbon Dioxide BUN Creatinine Glucose POC Glucose 158 H 40 L 128 H Lactic Acid Calcium Phosphorus Magnesium CK-MB (CK-2) Troponin T C-Reactive Protein Triglycerides Cholesterol HDL Cholesterol Urine Creatinine Urine Total Protein 12/06/16 12/06/16 12/06/16 11:58 18:14 19:00 WBC RBC Hgb Hct MCV MCHC RDW Plt Count Seg Neuts % (Manual) Lymphocytes % (Manual) Nucleated RBC % Lymphocytes # (Manual) POC ABG pH POC ABG pCO2 POC ABG pO2 Sodium 149 H Potassium 5.6 H Chloride 115.9 H Carbon Dioxide 13 L BUN 56 H Creatinine 4.3 H Glucose 124 H POC Glucose 144 H 55 L Lactic Acid Calcium 6.0 L Phosphorus Magnesium CK-MB (CK-2) Troponin T C-Reactive Protein Triglycerides Cholesterol HDL Cholesterol Urine Creatinine Urine Total Protein 12/06/16 12/06/16 12/06/16 19:06 21:24 21:51 WBC RBC Hgb Hct MCV MCHC RDW Plt Count Seg Neuts % (Manual) Lymphocytes % (Manual) Nucleated RBC % Lymphocytes # (Manual) POC ABG pH POC ABG pCO2 17.0 L POC ABG pO2 142 H Sodium Potassium Chloride Carbon Dioxide BUN Creatinine Glucose POC Glucose 148 H 107 H Lactic Acid Calcium Phosphorus Magnesium CK-MB (CK-2) Troponin T C-Reactive Protein Triglycerides Cholesterol HDL Cholesterol Urine Creatinine Urine Total Protein 12/07/16 12/07/16 12/07/16 02:32 05:01 05:25 WBC RBC Hgb Hct MCV MCHC RDW Plt Count Seg Neuts % (Manual) Lymphocytes % (Manual) Nucleated RBC % Lymphocytes # (Manual) POC ABG pH 7.300 L POC ABG pCO2 17.1 L POC ABG pO2 140 H Sodium Potassium Chloride Carbon Dioxide BUN Creatinine Glucose POC Glucose 175 H 279 H Lactic Acid Calcium Phosphorus Magnesium CK-MB (CK-2) Troponin T C-Reactive Protein Triglycerides Cholesterol HDL Cholesterol Urine Creatinine Urine Total Protein 12/07/16 12/07/16 12/07/16 06:00 06:00 06:00 WBC RBC 2.52 L Hgb 7.1 L Hct 22.1 L MCV MCHC RDW 19.3 H Plt Count 90 L Seg Neuts % (Manual) 75.0 H Lymphocytes % (Manual) 11.0 L Nucleated RBC % Lymphocytes # (Manual) 0.7 L POC ABG pH POC ABG pCO2 POC ABG pO2 Sodium Potassium Chloride Carbon Dioxide BUN Creatinine Glucose POC Glucose Lactic Acid Calcium Phosphorus 6.80 H Magnesium CK-MB (CK-2) Troponin T C-Reactive Protein 39.40 H Triglycerides Cholesterol HDL Cholesterol Urine Creatinine Urine Total Protein 12/07/16 12/07/16 07:30 08:40 WBC RBC Hgb Hct MCV MCHC RDW Plt Count Seg Neuts % (Manual) Lymphocytes % (Manual) Nucleated RBC % Lymphocytes # (Manual) POC ABG pH POC ABG pCO2 POC ABG pO2 Sodium Potassium 7.0 H* D Chloride 112.4 H Carbon Dioxide 8 L* BUN 61 H Creatinine 5.1 H Glucose 213 H POC Glucose Lactic Acid 6.90 H* Calcium 5.8 L* Phosphorus Magnesium CK-MB (CK-2) Troponin T C-Reactive Protein Triglycerides Cholesterol HDL Cholesterol Urine Creatinine Urine Total Protein Chest x-ray: image reviewed
[2016-12-07] MEDS ORDERED: Vasostrict 20 UNIT in NACL 0.9% 100 ML IV SCH (13:00)
--- NOTE | 2016-12-07 14:33 | XRay Report ---
Single view chest: Compared to 12/07/16. History: Left arm PICC line placement. Findings: Normal cardiomediastinal silhouette. Trachea is midline. The tip of endotracheal tube and NG tube in normal position. Tip of left PICC line in lower superior vena cava/right atrium. Consolidation right upper lobe without interval change. Impression: Tip of right PICC line lower superior vena cava/right atrium.
[2016-12-07] MEDS: SIMPLE SYRUP FEEDTUBE PRN (15:00)
[2016-12-07 15:11] LABS: INR 1.44 (0.87-1.13)
[2016-12-07 15:12] LABS: Partial Thromboplastin Time 30.7 Sec. (24.2-36.6)
[2016-12-07] MEDS: D50W (25GM) IV PRN ×3 (15:40→23:35)
--- NOTE | 2016-12-07 16:28 | Operative Report ---
Operative Report Operative Report: EXAM: ULTRASOUND-GUIDED PLACEMENT OF VAS-CATH CLINICAL INDICATION: PATIENT WITH ACUTE RENAL FAILURE REQUIRING DIALYSIS ACCESS DATE: 12/07/2016 PROCEDURE: Following an explanation of the risks, benefits and alternatives; written informed consent was obtained from the patient's next of kin. The procedure was performed at bedside in the ICU. Initial ultrasound evaluation the patient's right groin demonstrated a patent right common femoral vein. The patient's right groin was prepped and draped in the usual sterile fashion. 1% lidocaine was used for anesthesia. Under ultrasound guidance, the right common femoral vein was cannulated with a 7 cm 18-gauge needle. A 0.035 guidewire was advanced through the needle centrally. The needle was removed and following serial dilation, a 30 cm dialysis catheter was advanced over the guidewire centrally. The guidewire was removed. All 3 ports returned nonpulsatile blood. The catheter was flushed and locked with sterile saline. The catheter was securely fastened to place using 3-0 nylon suture and a sterile dressing applied. The patient tolerated the procedure well. There were no immediate post procedure complications. IMPRESSION: 1) Ultrasound guided placement of 30 cm non-cuffed dialysis catheter via the right common femoral vein.
--- NOTE | 2016-12-07 17:33 | Progress Note ---
Assessment and Plan Assessment and plan: The patient is a 46-year-old woman with history of insulin-dependent diabetes mellitus, hypertension, recent SAH and dyslipidemia who presented with DKA, AMS and STEMI with V. fib arrest requiring IV amiodarone suppression. She is currently intubated. She has a right groin triple-lumen catheter, Short, NG tube, ET tube, she is on IV insulin drip for documented DKA without ketones documentation but she was acidotic on admission. Also, she is on 12 mcg of Levophed, IV vancomycin, 200 mL/hr normal saline, amiodarone drip and propofol drip. -Spesis secondary to Possible aspiration penumonitis. on IV vancomycin, Inital BCX with coaglase negative staff, 1/2 bottles ?contaminate Repeat cultures, no growth. Continue with spesis protocoal, -Severe Metabolic acidosis- For dialysis today, Neprhology following -ASHELY- Oliguric, likely secondary to severe vasomotor nephropathy, ATN.- Access placed for dialysis today -Severe Hyperkalemia- correct with D5, BICARB, Calcium carbonate and insulin. also for emergent dialysis -Aspiration Pneumonitis.- NOTED ABOVE -Cardiac arrest with V. fib, - Shocked twice, was given amiodarone, and D/C amiodarone gtt, Echo shows EF 40-45% -Acute hypoxic respiratory failure, intubated, Pulmonary following. Continue vent support, Nebs, Nutrition support -Nstemi Type 2- Likely from Shock. -Cardiac arrest was STEMI: Cardiology following - DKA: resolved wean per protocol- transition to scheduled basal with sliding scale -Hypernatremia- will start free water flushes -Acute metabolic encephalopathy- Recent hx of Subarachnoid bleed pt- Avoid heparin like products. -DVT prophylaxis: SCDs only due to recent SAH The high probability of a clinically significant, sudden or life threatening deterioration of the [neuro, pulmonary, endocrinology, nephrology, cardiac] system(s) required my full and direct attention, intervention and personal management. The aggregate critical care time was [45] minutes. This time is in addition to time spent performing reported procedures but includes the following : [x] Data Review and interpretation [x] Patient assessment and monitoring of vital signs [x] Documentation [x] Medication orders and management History Interval history: Patient seen and examined, remains intubated. Decreased urine output. responds to verbal stimuli. Hospitalist Physical - Physical exam Narrative exam: VITAL SIGNS: Reviewed. GENERAL: sedated and intubated. Vital signs as documented. HEAD: No signs of head trauma. EYES: Pupils are equal. Extraocular motions intact. EARS: Hearing grossly intact. MOUTH: ETT in place NECK: No adenopathy, no JVD. CHEST: Chest with Crackles breath sounds bilaterally. CARDIAC: Regular rate and rhythm. S1 and S2, without murmurs, gallops, or rubs. VASCULAR: No Edema. Peripheral pulses normal and equal in all extremities. ABDOMEN: Soft, without detectable tenderness. No sign of distention. No rebound or guarding, and no masses palpated. Bowel Sounds normal. MUSCULOSKELETAL: Extremities without clubbing, cyanosis or edema. NEUROLOGIC EXAM: Sedated. opens eyes to verbal stimuli. PSYCHIATRIC: Mood normal. SKIN: No rash or lesions. - Constitutional Vitals: Temp Pulse Resp BP Pulse Ox 97.3 F L 115 H 25 H 100/70 96 12/07/16 16:37 12/07/16 17:15 12/07/16 17:15 12/07/16 17:15 12/07/16 17:15 General appearance: Present: severe distress Results - Labs CBC & Chem 7: 12/07/16 06:00 12/07/16 08:40 Labs: Laboratory Last Values WBC 6.5 K/mm3 (4.5-11.0) 12/07/16 06:00 RBC 2.52 M/mm3 (3.65-5.03) L 12/07/16 06:00 Hgb 7.1 gm/dl (10.1-14.3) L 12/07/16 06:00 Hct 22.1 % (30.3-42.9) L 12/07/16 06:00 MCV 87 fl (79-97) 12/07/16 06:00 MCH 28 pg (28-32) 12/07/16 06:00 MCHC 32 % (30-34) 12/07/16 06:00 RDW 19.3 % (13.2-15.2) H 12/07/16 06:00 Plt Count 90 K/mm3 (140-440) L 12/07/16 06:00 Add Manual Diff Complete 12/07/16 06:00 Total Counted 100 12/07/16 06:00 Seg Neuts % (Manual) 75.0 % (40.0-70.0) H 12/07/16 06:00 Band Neutrophils % 12.0 % 12/07/16 06:00 Lymphocytes % (Manual) 11.0 % (13.4-35.0) L 12/07/16 06:00 Reactive Lymphs % (Man) 0 % 12/07/16 06:00 Monocytes % (Manual) 2.0 % (0.0-7.3) 12/07/16 06:00 Eosinophils % (Manual) 0 % (0.0-4.3) 12/07/16 06:00 Basophils % (Manual) 0 % (0.0-1.8) 12/07/16 06:00 Metamyelocytes % 0 % 12/07/16 06:00 Myelocytes % 0 % 12/07/16 06:00 Promyelocytes % 0 % 12/07/16 06:00 Blast Cells % 0 % 12/07/16 06:00 Nucleated RBC % Not Reportable 12/07/16 06:00 Seg Neutrophils # Man 4.9 K/mm3 (1.8-7.7) 12/07/16 06:00 Band Neutrophils # 0.8 K/mm3 12/07/16 06:00 Lymphocytes # (Manual) 0.7 K/mm3 (1.2-5.4) L 12/07/16 06:00 Abs React Lymphs (Man) 0.0 K/mm3 12/07/16 06:00 Monocytes # (Manual) 0.1 K/mm3 (0.0-0.8) 12/07/16 06:00 Eosinophils # (Manual) 0.0 K/mm3 (0.0-0.4) 12/07/16 06:00 Basophils # (Manual) 0.0 K/mm3 (0.0-0.1) 12/07/16 06:00 Metamyelocytes # 0.0 K/mm3 12/07/16 06:00 Myelocytes # 0.0 K/mm3 12/07/16 06:00 Promyelocytes # 0.0 K/mm3 12/07/16 06:00 Blast Cells # 0.0 K/mm3 12/07/16 06:00 WBC Morphology Not Reportable 12/07/16 06:00 Hypersegmented Neuts Not Reportable 12/07/16 06:00 Hyposegmented Neuts Not Reportable 12/07/16 06:00 Hypogranular Neuts Not Reportable 12/07/16 06:00 Smudge Cells Not Reportable 12/07/16 06:00 Toxic Granulation Not Reportable 12/07/16 06:00 Toxic Vacuolation Not Reportable 12/07/16 06:00 Dohle Bodies 1+ 12/07/16 06:00 Pelger-Huet Anomaly Not Reportable 12/07/16 06:00 Mary Rods Not Reportable 12/07/16 06:00 Platelet Estimate Consistent w auto 12/07/16 06:00 Clumped Platelets Not Reportable 12/07/16 06:00 Plt Clumps, EDTA Not Reportable 12/07/16 06:00 Large Platelets Not Reportable 12/07/16 06:00 Giant Platelets Not Reportable 12/07/16 06:00 Platelet Satelliting Not Reportable 12/07/16 06:00 Plt Morphology Comment Not Reportable 12/07/16 06:00 RBC Morphology Not Reportable 12/07/16 06:00 Dimorphic RBCs Not Reportable 12/07/16 06:00 Polychromasia Not Reportable 12/07/16 06:00 Hypochromasia Not Reportable 12/07/16 06:00 Poikilocytosis 2+ 12/07/16 06:00 Anisocytosis 1+ 12/07/16 06:00 Microcytosis Not Reportable 12/07/16 06:00 Macrocytosis Not Reportable 12/07/16 06:00 Spherocytes Not Reportable 12/07/16 06:00 Pappenheimer Bodies Not Reportable 12/07/16 06:00 Sickle Cells Not Reportable 12/07/16 06:00 Target Cells Few 12/07/16 06:00 Tear Drop Cells Not Reportable 12/07/16 06:00 Ovalocytes Not Reportable 12/07/16 06:00 Helmet Cells Not Reportable 12/07/16 06:00 [place] Bodies Not Reportable 12/07/16 06:00 [place] Rings Not Reportable 12/07/16 06:00 [place] Cells 2+ 12/07/16 06:00 Bite Cells Not Reportable 12/07/16 06:00 Crenated Cell Not Reportable 12/07/16 06:00 Elliptocytes Not Reportable 12/07/16 06:00 Acanthocytes (Spur) 1+ 12/07/16 06:00 Rouleaux Not Reportable 12/07/16 06:00 Hemoglobin C Crystals Not Reportable 12/07/16 06:00 Schistocytes Not Reportable 12/07/16 06:00 Malaria parasites Not Reportable 12/07/16 06:00 Michael Bodies Not Reportable 12/07/16 06:00 Hem Pathologist Commnt No 12/07/16 06:00 PT 17.5 Sec. (12.2-14.9) H 12/07/16 14:45 INR 1.44 (0.87-1.13) H 12/07/16 14:45 APTT 30.7 Sec. (24.2-36.6) 12/07/16 14:45 POC ABG pH 7.300 (7.35-7.45) L 12/07/16 05:01 POC ABG pCO2 17.1 (35-45) L 12/07/16 05:01 POC ABG pO2 140 (80-105) H 12/07/16 05:01 POC ABG HCO3 8.4 12/07/16 05:01 POC ABG Total CO2 9 12/07/16 05:01 POC ABG O2 Sat 99 12/07/16 05:01 POC ABG Base Excess -18 12/07/16 05:01 FiO2 30 % 12/07/16 05:01 Sodium 145 mmol/L (137-145) 12/07/16 08:40 Potassium 7.0 mmol/L (3.6-5.0) H* D 12/07/16 08:40 Chloride 112.4 mmol/L (98-107) H 12/07/16 08:40 Carbon Dioxide 8 mmol/L (22-30) L* 12/07/16 08:40 Anion Gap 32 mmol/L 12/07/16 08:40 BUN 61 mg/dL (7-17) H 12/07/16 08:40 Creatinine 5.1 mg/dL (0.7-1.2) H 12/07/16 08:40 Estimated GFR 11 ml/min 12/07/16 08:40 BUN/Creatinine Ratio 11.96 % 12/07/16 08:40 Glucose 213 mg/dL (65-100) H 12/07/16 08:40 POC Glucose 118 (70-105) H 12/07/16 16:22 Lactic Acid 6.90 mmol/L (0.7-2.0) H* 12/07/16 07:30 Calcium 5.8 mg/dL (8.4-10.2) L* 12/07/16 08:40 Phosphorus 6.80 mg/dL (2.5-4.5) H 12/07/16 06:00 Magnesium 2.20 mg/dL (1.7-2.3) 12/07/16 06:00 Total Bilirubin TNR 12/07/16 06:00 AST TNR 12/07/16 06:00 ALT TNR 12/07/16 06:00 Alkaline Phosphatase TNR 12/07/16 06:00 Total Creatine Kinase 123 units/L (30-135) 12/04/16 09:55 CK-MB (CK-2) 4.6 ng/mL (0.0-4.0) H 12/04/16 09:55 CK-MB (CK-2) Rel Index 3.7 (0-4) 12/04/16 09:55 Troponin T 0.140 ng/mL (0.00-0.029) H* D 12/04/16 09:55 C-Reactive Protein 39.40 mg/dL (0.00-1.30) H 12/07/16 06:00 Total Protein TNR 12/07/16 06:00 Albumin TNR 12/07/16 06:00 Albumin/Globulin Ratio TNR 12/07/16 06:00 Triglycerides 570 mg/dL (2-149) H 12/04/16 07:55 Cholesterol 221 mg/dL (50-199) H 12/04/16 07:55 LDL Cholesterol Direct TNR 12/04/16 07:55 HDL Cholesterol 37 mg/dL (40-59) L 12/04/16 07:55 Cholesterol/HDL Ratio 5.97 % 12/04/16 07:55 TSH 1.600 mlU/mL (0.270-4.200) 12/03/16 23:20 Urine Color Yellow (Yellow) 12/04/16 11:25 Urine Turbidity Slightly-cloudy (Clear) 12/04/16 11:25 Urine pH 5.0 (5.0-7.0) 12/04/16 11:25 Ur Specific [place] 1.018 (1.003-1.030) 12/04/16 11:25 Urine Protein 30 mg/dl mg/dL (Negative) 12/04/16 11:25 Urine Glucose (UA) >=500 mg/dL (Negative) 12/04/16 11:25 Urine Ketones Tr mg/dL (Negative) 12/04/16 11:25 Urine Blood Sm (Negative) 12/04/16 11:25 Urine Nitrite Neg (Negative) 12/04/16 11:25 Urine Bilirubin Neg (Negative) 12/04/16 11:25 Urine Urobilinogen < 2.0 mg/dL (<2.0) 12/04/16 11:25 Ur Leukocyte Esterase Neg (Negative) 12/04/16 11:25 Urine WBC (Auto) 4.0 /HPF (0.0-6.0) 12/04/16 11:25 Urine RBC (Auto) 2.0 /HPF (0.0-6.0) 12/04/16 11:25 U Epithel Cells (Auto) < 1.0 /HPF (0-13.0) 12/04/16 11:25 Urine Mucus Few /HPF 12/04/16 11:25 Urine Osmolality 419 Mosm/kg 12/04/16 11:25 Urine Creatinine 29.5 mg/dL (0.1-20.0) H 12/04/16 11:25 Protein/Creatinin Ratio 1.12 12/04/16 11:25 Urine Sodium 26 mEq/L 12/04/16 11:25 Urine Total Protein 33 mg/dL (5-11.8) H 12/04/16 11:25 Urine Opiates Screen Presumptive negative 12/04/16 11:25 Urine Methadone Screen Presumptive negative 12/04/16 11:25 Ur Barbiturates Screen Presumptive negative 12/04/16 11:25 Ur Phencyclidine Scrn Presumptive negative 12/04/16 11:25 Ur Amphetamines Screen Presumptive negative 12/04/16 11:25 U Benzodiazepines Scrn Presumptive negative 12/04/16 11:25 Urine Cocaine Screen Presumptive negative 12/04/16 11:25 U Marijuana (THC) Screen Presumptive positive 12/04/16 11:25 Drugs of Abuse Note Disclamer 12/04/16 11:25 Blood Type O POSITIVE 12/03/16 23:43 Antibody Screen TNR 12/03/16 23:43 ISAIAH Antibody Screen Negative 12/03/16 23:43
[2016-12-07] MEDS ORDERED: NACL 0.9 (PRIMING MACHINE ONLY DIALYSIS) MC ONE (17:36)
[2016-12-07] MEDS ORDERED: VANCOMYCIN/NS 1 GM/250 ML 1 GM/250 ML BAG IV SCH (18:00)
[2016-12-07] MEDS: HEPARIN IV PRN (20:34)
[2016-12-07 22:31] LABS: BUN/Creatinine Ratio 8.46; Chloride 111.4 mmol/L (98-107); Potassium 3.3 mmol/L (3.6-5.0)
[2016-12-07 22:35] LABS: Albumin 2.1 g/dL (3.9-5); Albumin/Globulin Ratio 0.8 %; Bilirubin,Direct 0.9 mg/dL (0-0.2); Bilirubin,Indirect 0.5 mg/dL; Bilirubin,Total 1.4 mg/dL (0.1-1.2); Total Protein 4.6 g/dL (6.3-8.2)
[2016-12-07 22:49] LABS: Calcium 8.4 mg/dL (8.4-10.2)
[2016-12-08] MEDS: HEPARIN SUB-Q SCH ×2 (01:40→13:51)
[2016-12-08] MEDS: DIPRIVAN 10 MG/ML 1,000 MG/100 ML BOTTLE IV SCH ×2 (01:43→21:36)
[2016-12-08] MEDS: SIMPLE SYRUP FEEDTUBE PRN (02:32)
[2016-12-08] MEDS: ZOSYN/NS 2.25 GM/50ML 2.25 GM/50 ML BAG IV SCH ×3 (05:13→21:37)
[2016-12-08 06:07] LABS: Hematocrit 20.1 % (30.3-42.9); Hemoglobin 6.6 gm/dl (10.1-14.3); Mean Corpuscular HGB Conc 33 % (30-34); Mean Corpuscular Hemoglobin 28 pg (28-32); Mean Corpuscular Volume 86 fl (79-97); Red Blood Count 2.35 M/mm3 (3.65-5.03); Red Cell Distribution Width 17.8 % (13.2-15.2); White Blood Count 5.2 K/mm3 (4.5-11.0)
[2016-12-08 06:30] LABS: ISTAT Base Excess -5; ISTAT HCO3 16.9; ISTAT PCO2 17.7 (35-45); ISTAT PH 7.586 (7.35-7.45); ISTAT PO2 150 (80-105); ISTAT SO2 100; ISTAT TCO2 17
[2016-12-08 06:35] LABS: Platelet Count 48 K/mm3 (140-440)
[2016-12-08 06:45] LABS: BUN/Creatinine Ratio 7.64; Calcium 7.7 mg/dL (8.4-10.2); Chloride 111.8 mmol/L (98-107); Phosphorous 2.4 mg/dL (2.5-4.5); Potassium 3.2 mmol/L (3.6-5.0)
[2016-12-08] MEDS: NOVOLOG SUB-Q SCH ×3 (06:58→17:40)
[2016-12-08] MEDS: REGLAN IV SCH ×2 (07:45→17:38)
[2016-12-08] MEDS ORDERED: NACL 0.9% 500 ML 500 ML IV ONE ×2 (08:34→18:53)
--- NOTE | 2016-12-08 08:51 | XRay Report ---
AP CHEST: HISTORY: Followup respiratory failure Lines and tubes remain in good position. Right upper lobe infiltrate is unchanged since yesterday's exam. Heart size is stable. No new findings. IMPRESSION: No change.
--- NOTE | 2016-12-08 09:28 | Progress Note ---
Assessment and Plan - Patient Problems (1) Cardiac arrest Current Visit: Yes Status: Acute Plan to address problem: followed by cardiology (2) DKA (diabetic ketoacidoses) Current Visit: Yes Status: Acute Qualifiers: Diabetes mellitus type: type 1 Diabetes mellitus complication detail: with coma Diabetes mellitus chcf insulin use: D Qualified Code(s): E10.11 - Type 1 diabetes mellitus with ketoacidosis with coma Plan to address problem: switched sq insulin (3) Acute hypernatremia Current Visit: No Status: Acute Plan to address problem: cont free water flushes via NGT, will adjust as needed, curretnly receiving 250 cc Q4H (4) Acute kidney failure with tubular necrosis Current Visit: No Status: Acute Plan to address problem: secondary to ischemic ATN from shock HD again today for clearance and volume removal will assess dialysis needs daily transfusion1 units PRBC with HD today will monitor signs for renal recovery, currently oliguric strict I&O daily weight renal diet (5) Hyperkalemia Current Visit: No Status: Resolved Plan to address problem: resolved post HD (6) Respiratory failure Current Visit: No Status: Resolved Qualifiers: Chronicity: acute Respiratory failure complication: unspecified whether with hypoxia or hypercapnia Qualified Code(s): J96.00 - Acute respiratory failure, unspecified whether with hypoxia or hypercapnia Plan to address problem: vent management per primary team Subjective Date of service: 12/08/16 Principal diagnosis: Severe Sepsis; DKA, cardiac arrest Interval history: intubated, had dialysis yesterday without issues Objective - Vital Signs Vital signs: Vital Signs - 12hr 12/07/16 12/07/16 12/07/16 21:30 21:45 22:00 Temperature Pulse Rate 119 H 112 H 116 H Pulse Rate [ From Monitor] Respiratory 25 H 25 H 25 H Rate Respiratory Rate [ Generalized] Blood Pressure 106/67 97/61 93/63 O2 Sat by Pulse 100 97 99 Oximetry 12/07/16 12/07/16 12/07/16 22:15 22:30 22:45 Temperature Pulse Rate 123 H 125 H 122 H Pulse Rate [ From Monitor] Respiratory 25 H 25 H 25 H Rate Respiratory Rate [ Generalized] Blood Pressure 117/71 120/77 108/73 O2 Sat by Pulse 97 100 98 Oximetry 12/07/16 12/07/16 12/07/16 23:00 23:13 23:15 Temperature Pulse Rate 117 H 118 H 118 H Pulse Rate [ From Monitor] Respiratory 25 H 26 H 25 H Rate Respiratory Rate [ Generalized] Blood Pressure 102/68 102/68 107/70 O2 Sat by Pulse 99 99 99 Oximetry 12/07/16 12/07/16 12/07/16 23:30 23:43 23:45 Temperature Pulse Rate 119 H 118 H Pulse Rate [ From Monitor] Respiratory 25 H 25 H Rate Respiratory 26 H Rate [ Generalized] Blood Pressure 104/71 106/68 O2 Sat by Pulse 98 99 Oximetry 12/07/16 12/08/16 12/08/16 23:56 00:00 00:15 Temperature 98.8 F Pulse Rate 117 H 117 H 120 H Pulse Rate [ 117 H From Monitor] Respiratory 25 H 25 H Rate Respiratory Rate [ Generalized] Blood Pressure 106/68 104/67 101/66 O2 Sat by Pulse 99 97 98 Oximetry 12/08/16 12/08/16 12/08/16 00:30 00:45 01:00 Temperature Pulse Rate 118 H 118 H 114 H Pulse Rate [ From Monitor] Respiratory 25 H 25 H 25 H Rate Respiratory Rate [ Generalized] Blood Pressure 104/66 105/67 104/70 O2 Sat by Pulse 97 98 99 Oximetry 12/08/16 12/08/16 12/08/16 01:15 01:30 01:43 Temperature Pulse Rate 114 H 116 H Pulse Rate [ From Monitor] Respiratory 25 H 25 H 24 Rate Respiratory Rate [ Generalized] Blood Pressure 98/64 112/76 O2 Sat by Pulse 100 99 Oximetry 12/08/16 12/08/16 12/08/16 01:45 02:00 02:15 Temperature Pulse Rate 114 H 116 H 112 H Pulse Rate [ From Monitor] Respiratory 25 H 21 25 H Rate Respiratory Rate [ Generalized] Blood Pressure 107/73 105/63 112/73 O2 Sat by Pulse 98 93 99 Oximetry 12/08/16 12/08/16 12/08/16 02:30 02:45 03:00 Temperature Pulse Rate 113 H 114 H 113 H Pulse Rate [ From Monitor] Respiratory 25 H 25 H 25 H Rate Respiratory Rate [ Generalized] Blood Pressure 108/75 105/67 109/72 O2 Sat by Pulse 98 95 97 Oximetry 12/08/16 12/08/16 12/08/16 03:15 03:30 03:41 Temperature 100.1 F H Pulse Rate 111 H 115 H Pulse Rate [ From Monitor] Respiratory 25 H 25 H Rate Respiratory Rate [ Generalized] Blood Pressure 109/75 110/74 O2 Sat by Pulse 95 96 Oximetry 12/08/16 12/08/16 12/08/16 03:45 04:00 04:15 Temperature Pulse Rate 111 H 110 H 112 H Pulse Rate [ 110 H From Monitor] Respiratory 25 H 55 H 25 H Rate Respiratory Rate [ Generalized] Blood Pressure 108/74 103/70 103/67 O2 Sat by Pulse 97 95 95 Oximetry 12/08/16 12/08/16 12/08/16 04:28 04:30 04:45 Temperature Pulse Rate 113 H 115 H 111 H Pulse Rate [ From Monitor] Respiratory 23 25 H Rate Respiratory Rate [ Generalized] Blood Pressure 103/67 111/47 104/72 O2 Sat by Pulse 95 96 97 Oximetry 12/08/16 12/08/16 12/08/16 05:00 05:15 05:30 Temperature Pulse Rate 111 H 111 H Pulse Rate [ From Monitor] Respiratory 25 H 24 Rate Respiratory Rate [ Generalized] Blood Pressure 104/69 106/70 106/70 O2 Sat by Pulse 94 95 97 Oximetry 12/08/16 12/08/16 12/08/16 05:46 06:08 06:15 Temperature Pulse Rate Pulse Rate [ From Monitor] Respiratory Rate Respiratory Rate [ Generalized] Blood Pressure 106/70 125/72 119/71 O2 Sat by Pulse 97 98 Oximetry 12/08/16 12/08/16 12/08/16 06:30 06:45 07:00 Temperature Pulse Rate 108 H 108 H 106 H Pulse Rate [ From Monitor] Respiratory 25 H 25 H 25 H Rate Respiratory Rate [ Generalized] Blood Pressure 110/64 111/66 113/69 O2 Sat by Pulse 100 100 Oximetry 12/08/16 12/08/16 07:15 07:44 Temperature Pulse Rate 106 H 104 H Pulse Rate [ From Monitor] Respiratory 25 H Rate Respiratory Rate [ Generalized] Blood Pressure 115/65 105/63 O2 Sat by Pulse 99 100 Oximetry - General Appearance General appearance: intubated EENT: mucous membranes dry Neck: no JVD, no carotid bruit Respiratory: Present: Wheezes Cardiology: tachycardia Gastrointestinal: hypoactive bowel sounds Integumentary: no rash, warm and dry Neurologic: other (does not follow commands) Musculoskeletal: other (trace pitting edema in BLE) Psychiatric: other (does not answer questions) - Lab 12/08/16 04:50 12/08/16 04:50 Most recent lab results Calcium 7.7 mg/dL (8.4-10.2) L 12/08/16 04:50 Phosphorus 2.40 mg/dL (2.5-4.5) L D 12/08/16 04:50 Magnesium 2.20 mg/dL (1.7-2.3) 12/07/16 06:00 Urine Creatinine 29.5 mg/dL (0.1-20.0) H 12/04/16 11:25 Urine Sodium 26 mEq/L 12/04/16 11:25 Urine Total Protein 33 mg/dL (5-11.8) H 12/04/16 11:25
[2016-12-08 09:40] LABS: BUN/Creatinine Ratio 7.77; Calcium 7.3 mg/dL (8.4-10.2); Chloride 110.6 mmol/L (98-107)
[2016-12-08 10:15] LABS: Potassium 2.9 mmol/L (3.6-5.0)
[2016-12-08 11:22] LABS: Acanthocytes 1+; Anisocytosis 1+; Basophils % (Manual) 0 % (0.0-1.8); Blastocytes % (Manual) 0 %; Burr Cells 2+; Dohle Bodies 1+; Eosinophils % (Manual) 0 % (0.0-4.3); Poikilocytosis 2+; Target Cells Few; Total Cells Counted Percent 0
[2016-12-08 11:23] LABS: Diff Status Complete; Platelet Estimate Consistent w Auto
[2016-12-08] MEDS ORDERED: NACL 0.9% 100 ML IV PRN (11:30)
--- NOTE | 2016-12-08 11:47 | Progress Note ---
Assessment and Plan Acute respiratory failure vent weaning per pulmonary Cardiac arrest PEA arrest-->V. fib/?torsades-->shocked twice, received amiodarone 300 mg amiodarone gtt discontinued Echo 11/2016: EF 40-45%, repeat echo EF 40-45% Abnormal EKG/ST elevation Given pt.'s condition, resolution of ST elevation and recent subarachnoid bleed pt. not a candidate for cardiac cath Hypotension wean pressors to maintain MAP > 65 continue IV hydration Nstemi type 2 DKA Hyperkalemia Acute on chronic renal failure Anemia Recent subarachnoid hemorrhage Patient is alert and appears to be more comfortable today. Continue current management Subjective Date of service: 12/08/16 Principal diagnosis: Severe Sepsis; DKA, cardiac arrest Interval history: The patient is more alert today. Appears comfortable Objective Vital Signs Temp Pulse Pulse Resp Resp BP Pulse Ox 12/08/16 11:30 97 H 138/90 12/08/16 11:15 97 H 135/92 12/08/16 11:00 101 H 132/86 12/08/16 10:45 98 H 127/85 12/08/16 10:30 100 H 128/85 12/08/16 10:15 100 H 118/84 12/08/16 10:05 98.8 F 102 H 25 H 110/72 12/08/16 09:15 101 H 25 H 110/77 100 12/08/16 09:00 103 H 25 H 113/79 100 12/08/16 08:45 101 H 25 H 103/67 89 12/08/16 08:30 105 H 25 H 83/51 100 12/08/16 08:15 105 H 25 H 97/56 100 12/08/16 08:00 98.8 F 107 H 25 H 104/66 100 12/08/16 07:45 103 H 25 H 108/67 100 12/08/16 07:44 104 H 105/63 100 12/08/16 07:30 105 H 25 H 105/63 100 12/08/16 07:15 106 H 25 H 115/65 99 12/08/16 07:00 106 H 25 H 113/69 100 12/08/16 06:45 108 H 25 H 111/66 100 12/08/16 06:30 108 H 25 H 110/64 12/08/16 06:15 119/71 98 12/08/16 06:08 125/72 12/08/16 05:46 106/70 97 12/08/16 05:30 106/70 97 12/08/16 05:15 111 H 24 106/70 95 12/08/16 05:00 111 H 25 H 104/69 94 12/08/16 04:45 111 H 25 H 104/72 97 12/08/16 04:30 115 H 23 111/47 96 12/08/16 04:28 113 H 103/67 95 12/08/16 04:15 112 H 25 H 103/67 95 12/08/16 04:00 110 H 110 H 55 H 103/70 95 12/08/16 03:45 111 H 25 H 108/74 97 12/08/16 03:41 100.1 F H 12/08/16 03:30 115 H 25 H 110/74 96 12/08/16 03:15 111 H 25 H 109/75 95 12/08/16 03:00 113 H 25 H 109/72 97 12/08/16 02:45 114 H 25 H 105/67 95 12/08/16 02:30 113 H 25 H 108/75 98 12/08/16 02:15 112 H 25 H 112/73 99 12/08/16 02:00 116 H 21 105/63 93 12/08/16 01:45 114 H 25 H 107/73 98 12/08/16 01:43 24 12/08/16 01:30 116 H 25 H 112/76 99 12/08/16 01:15 114 H 25 H 98/64 100 12/08/16 01:00 114 H 25 H 104/70 99 12/08/16 00:45 118 H 25 H 105/67 98 12/08/16 00:30 118 H 25 H 104/66 97 12/08/16 00:15 120 H 25 H 101/66 98 12/08/16 00:00 98.8 F 117 H 117 H 25 H 104/67 97 12/07/16 23:56 117 H 106/68 99 12/07/16 23:45 118 H 25 H 106/68 99 12/07/16 23:43 26 H 12/07/16 23:30 119 H 25 H 104/71 98 12/07/16 23:15 118 H 25 H 107/70 99 12/07/16 23:13 118 H 26 H 102/68 99 12/07/16 23:00 117 H 25 H 102/68 99 12/07/16 22:45 122 H 25 H 108/73 98 12/07/16 22:30 125 H 25 H 120/77 100 12/07/16 22:15 123 H 25 H 117/71 97 12/07/16 22:00 116 H 25 H 93/63 99 12/07/16 21:45 112 H 25 H 97/61 97 12/07/16 21:30 119 H 25 H 106/67 100 12/07/16 21:15 127 H 25 H 127/77 99 12/07/16 21:00 131 H 30 H 127/77 95 12/07/16 20:55 98.2 F 131 H 30 H 192/69 12/07/16 20:54 130 H 132/83 12/07/16 20:45 130 H 31 H 132/83 94 12/07/16 20:41 129 H 126/82 12/07/16 20:30 130 H 32 H 126/82 95 12/07/16 20:28 130 H 135/84 12/07/16 20:15 129 H 33 H 135/84 94 12/07/16 20:13 128 H 134/80 12/07/16 20:00 98.3 F 129 H 129 H 31 H 134/80 95 12/07/16 19:52 126 H 141/78 12/07/16 19:45 124 H 32 H 141/78 95 12/07/16 19:34 128 H 145/110 12/07/16 19:30 128 H 35 H 145/110 97 12/07/16 19:27 124 H 145/99 97 12/07/16 19:23 127 H 145/99 12/07/16 19:15 128 H 36 H 145/99 93 12/07/16 19:09 125 H 139/90 12/07/16 19:01 126 H 27 H 139/90 96 12/07/16 18:55 123 H 119/83 12/07/16 18:45 117 H 24 119/83 94 12/07/16 18:30 118 H 20 130/85 94 12/07/16 18:15 115 H 26 H 103/79 94 12/07/16 18:00 98.9 F 112 H 25 H 103/79 95 12/07/16 17:51 115 H 110/78 96 12/07/16 17:45 111 H 25 H 93/71 12/07/16 17:30 116 H 25 H 110/78 86 12/07/16 17:15 115 H 25 H 100/70 96 12/07/16 17:01 111 H 24 105/65 70 L 12/07/16 16:45 109 H 20 97/76 12/07/16 16:37 97.3 F L 12/07/16 16:30 110 H 25 H 95/70 99 12/07/16 16:15 108 H 24 97/68 99 12/07/16 16:00 110 H 25 H 98/68 98 12/07/16 15:45 106 H 24 95/69 100 12/07/16 15:30 107 H 25 H 95/64 100 12/07/16 15:18 107 H 91/62 100 12/07/16 15:15 107 H 25 H 91/65 100 12/07/16 15:00 106 H 25 H 91/62 100 12/07/16 14:45 106 H 25 H 88/64 100 12/07/16 14:30 106 H 25 H 89/58 100 12/07/16 14:15 109 H 25 H 90/61 100 12/07/16 14:00 106 H 25 H 99/68 100 12/07/16 13:45 103 H 25 H 104/72 100 12/07/16 13:30 101 H 25 H 100/66 100 12/07/16 13:15 101 H 25 H 99/68 100 12/07/16 13:00 99 H 25 H 95/63 100 12/07/16 12:45 97 H 25 H 107/73 100 12/07/16 12:30 97 H 25 H 104/69 100 12/07/16 12:22 97 H 99/69 100 12/07/16 12:15 96 H 27 H 99/69 100 12/07/16 12:00 97.4 F L 97 H 28 H 102/72 100 12/07/16 11:45 98 H 28 H 107/72 100 - Physical Examination General: No Apparent Distress (intubated, sedated ) HEENT: Positive: Normocephaly Neck: Positive: neck supple, trachea midline Cardiac: Positive: Reg Rate and Rhythm Lungs: Positive: Decreased Breath Sounds (both bases) Neuro: Positive: Other (intubated, sedated) Abdomen: Positive: Soft Skin: Negative: Rash Extremities: Present: normal. Absent: edema - Labs and Meds Cardiac Enzymes 12/07/16 Range/Units 21:35 AST 94 H (5-40) units/L Coagulation 12/07/16 Range/Units 14:45 PT 17.5 H (12.2-14.9) Sec. INR 1.44 H (0.87-1.13) APTT 30.7 (24.2-36.6) Sec. CBC 12/08/16 Range/Units 04:50 WBC 5.2 (4.5-11.0) K/mm3 RBC 2.35 L (3.65-5.03) M/mm3 Hgb 6.6 L (10.1-14.3) gm/dl Hct 20.1 L (30.3-42.9) % Plt Count 48 L (140-440) K/mm3 Comprehensive Metabolic Panel 12/07/16 12/07/16 12/08/16 Range/Units 21:35 21:35 04:50 Sodium 150 H 149 H (137-145) mmol/L Potassium 3.3 L D 3.2 L (3.6-5.0) mmol/L Chloride 111.4 H 111.8 H (98-107) mmol/L Carbon Dioxide 21 L D 17 L (22-30) mmol/L BUN 22 H 26 H (7-17) mg/dL Creatinine 2.6 H 3.4 H (0.7-1.2) mg/dL Glucose 23 L* 163 H (65-100) mg/dL Calcium 8.4 D 7.7 L (8.4-10.2) mg/dL Direct Bilirubin 0.9 H (0-0.2) mg/dL Indirect Bilirubin 0.5 mg/dL AST 94 H (5-40) units/L ALT 142 H (7-56) units/L Alkaline Phosphatase 249 H (35-129) units/L Total Protein 4.6 L D (6.3-8.2) g/dL Albumin 2.1 L (3.9-5) g/dL 12/08/16 Range/Units 08:46 Sodium 147 H (137-145) mmol/L Potassium 2.9 L* (3.6-5.0) mmol/L Chloride 110.6 H (98-107) mmol/L Carbon Dioxide 17 L (22-30) mmol/L BUN 28 H (7-17) mg/dL Creatinine 3.6 H (0.7-1.2) mg/dL Glucose 127 H (65-100) mg/dL Calcium 7.3 L (8.4-10.2) mg/dL Direct Bilirubin (0-0.2) mg/dL Indirect Bilirubin mg/dL AST (5-40) units/L ALT (7-56) units/L Alkaline Phosphatase (35-129) units/L Total Protein (6.3-8.2) g/dL Albumin (3.9-5) g/dL - Imaging and Cardiology Echo: report reviewed (11/2016: EF 40-45% repeat echo EF 40-45%)
--- NOTE | 2016-12-08 13:19 | Progress Note ---
Assessment and Plan - Patient Problems (1) Severe sepsis Current Visit: Yes Status: Acute Plan to address problem: (RUL pneumonia may have been present prior and evident post re-hydration but also may represent aspirate) - continue wean levophed for MAP > 60mmHg - continue empiric AB's and follow cultures (will stop zosyn after BC's -ve and final) - continue to trend lactate and CRP as necessary - s/p PICC line - send new tracheal aspirate for C&S - blood cultures growing coag -ve staph in 1 of 4 bottles and likely contaminant - discontinued vancomycin empirically in setting of ASHELY - hopefully HD/UF improves clinical picture also (2) Cardiac arrest Current Visit: Yes Status: Acute Plan to address problem: - achieved ROSC and no recurrence - avoid severe acidosis and continue to treat sepsis and azotemia (3) Acute renal failure Current Visit: No Status: Acute Qualifiers: Acute renal failure type: A Plan to address problem: - continue free water flushes for hypernatremia - per nephrology otherwise - HD/UF beginning today - input appreciated - replaced potassium (4) Acute respiratory failure with hypoxemia Current Visit: No Status: Acute Plan to address problem: - acid-base balance improving - will reduce set minute ventilation further (reduced rate to 20/min) - continue bronchodilators and pulmonary toilet - continuing aspiration precautions and addressed VAP bundle - continue to wean oxygen for sats > 94% (5) DKA (diabetic ketoacidoses) Current Visit: Yes Status: Acute Qualifiers: Diabetes mellitus type: type 1 Diabetes mellitus complication detail: with coma Diabetes mellitus care home insulin use: D Qualified Code(s): E10.11 - Type 1 diabetes mellitus with ketoacidosis with coma Plan to address problem: - off IV insulin - enteral nutrition started and tolerating well so far - begin SSI (6) Anemia Current Visit: Yes Status: Acute Qualifiers: Anemia type: A Iron deficiency anemia type: I Vitamin B12 deficiency anemia type: V Folate deficiency anemia type: F Bone marrow failure anemia type: B Hemolytic anemia type: H Other causes of anemia: O Chronic kidney disease stage: C Plan to address problem: - received 1 unit PRBC - follow prn - treat azotemia (7) Discharge planning issues Current Visit: No Status: Acute Plan to address problem: - improving ...she remains critically ill on life sustaining interventions including MVS and at high risk for further deterioration including ..35' CCT Subjective Date of service: 12/08/16 Principal diagnosis: Severe Sepsis; DKA, cardiac arrest Interval history: Seen and examined at bedside; 24 hour events reviewed; nursing and respiratory care staff consulted; no adverse overnight events reported to me; HD/UF ongoing again today and tolerating well; no N/V/F/C; tolerating tube feeds and at goal rate now; repeat CTA growing gm -ve rods (ID pending) Objective Vital Signs - 12hr 12/08/16 12/08/16 12/08/16 01:30 01:43 01:45 Temperature Pulse Rate 116 H 114 H Pulse Rate [ From Monitor] Respiratory 25 H 24 25 H Rate Blood Pressure 112/76 107/73 O2 Sat by Pulse 99 98 Oximetry 12/08/16 12/08/16 12/08/16 02:00 02:15 02:30 Temperature Pulse Rate 116 H 112 H 113 H Pulse Rate [ From Monitor] Respiratory 21 25 H 25 H Rate Blood Pressure 105/63 112/73 108/75 O2 Sat by Pulse 93 99 98 Oximetry 12/08/16 12/08/16 12/08/16 02:45 03:00 03:15 Temperature Pulse Rate 114 H 113 H 111 H Pulse Rate [ From Monitor] Respiratory 25 H 25 H 25 H Rate Blood Pressure 105/67 109/72 109/75 O2 Sat by Pulse 95 97 95 Oximetry 12/08/16 12/08/16 12/08/16 03:30 03:41 03:45 Temperature 100.1 F H Pulse Rate 115 H 111 H Pulse Rate [ From Monitor] Respiratory 25 H 25 H Rate Blood Pressure 110/74 108/74 O2 Sat by Pulse 96 97 Oximetry 12/08/16 12/08/16 12/08/16 04:00 04:15 04:28 Temperature Pulse Rate 110 H 112 H 113 H Pulse Rate [ 110 H From Monitor] Respiratory 55 H 25 H Rate Blood Pressure 103/70 103/67 103/67 O2 Sat by Pulse 95 95 95 Oximetry 12/08/16 12/08/16 12/08/16 04:30 04:45 05:00 Temperature Pulse Rate 115 H 111 H 111 H Pulse Rate [ From Monitor] Respiratory 23 25 H 25 H Rate Blood Pressure 111/47 104/72 104/69 O2 Sat by Pulse 96 97 94 Oximetry 12/08/16 12/08/16 12/08/16 05:15 05:30 05:46 Temperature Pulse Rate 111 H Pulse Rate [ From Monitor] Respiratory 24 Rate Blood Pressure 106/70 106/70 106/70 O2 Sat by Pulse 95 97 97 Oximetry 12/08/16 12/08/16 12/08/16 06:08 06:15 06:30 Temperature Pulse Rate 108 H Pulse Rate [ From Monitor] Respiratory 25 H Rate Blood Pressure 125/72 119/71 110/64 O2 Sat by Pulse 98 Oximetry 12/08/16 12/08/16 12/08/16 06:45 07:00 07:15 Temperature Pulse Rate 108 H 106 H 106 H Pulse Rate [ From Monitor] Respiratory 25 H 25 H 25 H Rate Blood Pressure 111/66 113/69 115/65 O2 Sat by Pulse 100 100 99 Oximetry 12/08/16 12/08/16 12/08/16 07:30 07:44 07:45 Temperature Pulse Rate 105 H 104 H 103 H Pulse Rate [ From Monitor] Respiratory 25 H 25 H Rate Blood Pressure 105/63 105/63 108/67 O2 Sat by Pulse 100 100 100 Oximetry 12/08/16 12/08/16 12/08/16 08:00 08:15 08:30 Temperature 98.8 F Pulse Rate 107 H 105 H 105 H Pulse Rate [ From Monitor] Respiratory 25 H 25 H 25 H Rate Blood Pressure 104/66 97/56 83/51 O2 Sat by Pulse 100 100 100 Oximetry 12/08/16 12/08/16 12/08/16 08:45 09:00 09:15 Temperature Pulse Rate 101 H 103 H 101 H Pulse Rate [ From Monitor] Respiratory 25 H 25 H 25 H Rate Blood Pressure 103/67 113/79 110/77 O2 Sat by Pulse 89 100 100 Oximetry 12/08/16 12/08/16 12/08/16 09:20 09:30 09:40 Temperature Pulse Rate 101 H 99 H 98 H Pulse Rate [ From Monitor] Respiratory 25 H 25 H 25 H Rate Blood Pressure 110/77 100/64 100/64 O2 Sat by Pulse 100 100 100 Oximetry 12/08/16 12/08/16 12/08/16 09:50 10:00 10:05 Temperature 98.8 F Pulse Rate 99 H 101 H 102 H Pulse Rate [ From Monitor] Respiratory 25 H 25 H 25 H Rate Blood Pressure 110/72 117/83 110/72 O2 Sat by Pulse 100 100 Oximetry 12/08/16 12/08/16 12/08/16 10:10 10:15 10:20 Temperature Pulse Rate 103 H 100 H 102 H Pulse Rate [ From Monitor] Respiratory 25 H 25 H Rate Blood Pressure 117/83 118/84 118/84 O2 Sat by Pulse 100 100 Oximetry 12/08/16 12/08/16 12/08/16 10:30 10:40 10:45 Temperature Pulse Rate 101 H 99 H 98 H Pulse Rate [ From Monitor] Respiratory 25 H 25 H Rate Blood Pressure 128/85 110/72 127/85 O2 Sat by Pulse 99 100 Oximetry 12/08/16 12/08/16 12/08/16 10:50 11:00 11:06 Temperature 98.4 F Pulse Rate 102 H 101 H Pulse Rate [ From Monitor] Respiratory 26 H 25 H Rate Blood Pressure 127/85 132/86 O2 Sat by Pulse 100 100 Oximetry 12/08/16 12/08/16 12/08/16 11:10 11:15 11:20 Temperature Pulse Rate 100 H 97 H 95 H Pulse Rate [ From Monitor] Respiratory 25 H 25 H Rate Blood Pressure 132/86 135/92 135/92 O2 Sat by Pulse 100 100 Oximetry 12/08/16 12/08/16 12/08/16 11:30 11:40 11:45 Temperature Pulse Rate 97 H 95 H 94 H Pulse Rate [ From Monitor] Respiratory 25 H 25 H Rate Blood Pressure 138/90 138/90 146/100 O2 Sat by Pulse 100 100 Oximetry 12/08/16 12/08/16 12/08/16 11:50 11:58 12:00 Temperature Pulse Rate 104 H 101 H 99 H Pulse Rate [ From Monitor] Respiratory 25 H 25 H Rate Blood Pressure 139/88 139/88 143/94 O2 Sat by Pulse 100 100 Oximetry 12/08/16 12/08/16 12/08/16 12:10 12:12 12:13 Temperature 98.3 F Pulse Rate 98 H 98 H 97 H Pulse Rate [ From Monitor] Respiratory 23 25 H Rate Blood Pressure 143/94 143/94 143/94 O2 Sat by Pulse 100 100 100 Oximetry 12/08/16 12/08/16 12/08/16 12:15 12:20 12:27 Temperature 98.0 F Pulse Rate 97 H 95 H 98 H Pulse Rate [ From Monitor] Respiratory 25 H 25 H Rate Blood Pressure 145/96 145/96 145/96 O2 Sat by Pulse 100 100 Oximetry 12/08/16 12/08/16 12/08/16 12:29 12:30 12:40 Temperature Pulse Rate 95 H 95 H 96 H Pulse Rate [ From Monitor] Respiratory 25 H 25 H Rate Blood Pressure 148/100 148/100 148/100 O2 Sat by Pulse 100 100 Oximetry 12/08/16 12:45 Temperature 98.4 F Pulse Rate 96 H Pulse Rate [ From Monitor] Respiratory 25 H Rate Blood Pressure 153/99 O2 Sat by Pulse 100 Oximetry Constitutional: appears uncomfortable, other (sedated) Eyes: non-icteric ENT: oropharynx moist Neck: supple, no lymphadenopathy Effort: mildly labored Ascultation: Bilateral: diminished breath sounds, rales Cardiovascular: regular rate and rhythm, other (SVT) Gastrointestinal: normoactive bowel sounds, soft, non-tender, non-distended Integumentary: normal Extremities: no cyanosis, no edema, pulses normal, no ischemia or petechiae Neurologic: normal mental status, non-focal exam, pupils equal and round, motor strength normal and, other (sedated) Psychiatric: other (unable to assess) CBC and BMP: 12/08/16 04:50 12/08/16 08:46 ABG, PT/INR, D-dimer: ABG POC ABG pH 7.586 (7.35-7.45) H 12/08/16 04:43 POC ABG pCO2 17.7 (35-45) L 12/08/16 04:43 POC ABG pO2 150 (80-105) H 12/08/16 04:43 POC ABG HCO3 16.9 12/08/16 04:43 POC ABG Total CO2 17 12/08/16 04:43 POC ABG O2 Sat 100 12/08/16 04:43 PT/INR, D-dimer PT 17.5 Sec. (12.2-14.9) H 12/07/16 14:45 INR 1.44 (0.87-1.13) H 12/07/16 14:45 Abnormal lab findings: Abnormal Labs 12/04/16 12/04/16 12/04/16 01:19 01:36 02:21 WBC RBC Hgb Hct MCV MCHC RDW Plt Count Seg Neuts % (Manual) Lymphocytes % (Manual) Nucleated RBC % Lymphocytes # (Manual) PT INR POC ABG pH 6.759 L POC ABG pCO2 POC ABG pO2 437 H Sodium Potassium Chloride Carbon Dioxide BUN Creatinine Glucose POC Glucose > 500 H Lactic Acid Calcium Phosphorus 15.70 H Magnesium 4.30 H Total Bilirubin Direct Bilirubin AST ALT Alkaline Phosphatase CK-MB (CK-2) Troponin T C-Reactive Protein Total Protein Albumin Triglycerides Cholesterol HDL Cholesterol Urine Creatinine Urine Total Protein Crossmatch 12/04/16 12/04/16 12/04/16 03:55 04:00 05:11 WBC RBC Hgb Hct MCV MCHC RDW Plt Count Seg Neuts % (Manual) Lymphocytes % (Manual) Nucleated RBC % Lymphocytes # (Manual) PT INR POC ABG pH POC ABG pCO2 POC ABG pO2 Sodium Potassium Chloride 91.4 L Carbon Dioxide 8 L* BUN 55 H Creatinine 2.8 H Glucose 1610 H* POC Glucose > 500 H > 500 H Lactic Acid Calcium Phosphorus Magnesium Total Bilirubin Direct Bilirubin AST ALT Alkaline Phosphatase CK-MB (CK-2) Troponin T C-Reactive Protein Total Protein Albumin Triglycerides Cholesterol HDL Cholesterol Urine Creatinine Urine Total Protein Crossmatch 12/04/16 12/04/16 12/04/16 05:40 05:54 06:58 WBC RBC Hgb Hct MCV MCHC RDW Plt Count Seg Neuts % (Manual) Lymphocytes % (Manual) Nucleated RBC % Lymphocytes # (Manual) PT INR POC ABG pH 7.154 L POC ABG pCO2 27.5 L POC ABG pO2 111 H Sodium Potassium Chloride Carbon Dioxide BUN Creatinine Glucose POC Glucose > 500 H > 500 H Lactic Acid Calcium Phosphorus Magnesium Total Bilirubin Direct Bilirubin AST ALT Alkaline Phosphatase CK-MB (CK-2) Troponin T C-Reactive Protein Total Protein Albumin Triglycerides Cholesterol HDL Cholesterol Urine Creatinine Urine Total Protein Crossmatch 12/04/16 12/04/16 12/04/16 07:49 07:55 07:55 WBC RBC Hgb Hct MCV MCHC RDW Plt Count Seg Neuts % (Manual) Lymphocytes % (Manual) Nucleated RBC % Lymphocytes # (Manual) PT INR POC ABG pH POC ABG pCO2 POC ABG pO2 Sodium Potassium 3.3 L Chloride Carbon Dioxide 9 L* BUN 53 H Creatinine 2.9 H Glucose 1229 H* POC Glucose > 500 H Lactic Acid Calcium Phosphorus Magnesium Total Bilirubin Direct Bilirubin AST ALT Alkaline Phosphatase CK-MB (CK-2) Troponin T 0.111 H* D C-Reactive Protein Total Protein Albumin Triglycerides 570 H Cholesterol 221 H HDL Cholesterol 37 L Urine Creatinine Urine Total Protein Crossmatch 12/04/16 12/04/16 12/04/16 07:55 09:55 09:55 WBC RBC 2.90 L Hgb 8.5 L Hct 30.2 L D MCV 105 H D MCHC 28 L RDW 19.2 H Plt Count Seg Neuts % (Manual) Lymphocytes % (Manual) 11.0 L Nucleated RBC % Lymphocytes # (Manual) 0.6 L PT INR POC ABG pH POC ABG pCO2 POC ABG pO2 Sodium Potassium 3.1 L Chloride Carbon Dioxide 7 L* BUN 51 H Creatinine 3.2 H Glucose 969 H* POC Glucose Lactic Acid Calcium 10.4 H D Phosphorus Magnesium Total Bilirubin Direct Bilirubin AST ALT Alkaline Phosphatase CK-MB (CK-2) 4.6 H Troponin T 0.140 H* D C-Reactive Protein Total Protein Albumin Triglycerides Cholesterol HDL Cholesterol Urine Creatinine Urine Total Protein Crossmatch 12/04/16 12/04/16 12/04/16 09:55 10:37 11:25 WBC RBC Hgb Hct MCV MCHC RDW Plt Count Seg Neuts % (Manual) Lymphocytes % (Manual) Nucleated RBC % Lymphocytes # (Manual) PT INR POC ABG pH 7.215 L POC ABG pCO2 18.8 L POC ABG pO2 193 H Sodium Potassium Chloride Carbon Dioxide BUN Creatinine Glucose POC Glucose Lactic Acid Calcium Phosphorus Magnesium 3.70 H Total Bilirubin Direct Bilirubin AST ALT Alkaline Phosphatase CK-MB (CK-2) Troponin T C-Reactive Protein Total Protein Albumin Triglycerides Cholesterol HDL Cholesterol Urine Creatinine 29.5 H Urine Total Protein 33 H Crossmatch 12/04/16 12/04/16 12/04/16 12:00 12:48 13:00 WBC RBC Hgb Hct MCV MCHC RDW Plt Count Seg Neuts % (Manual) Lymphocytes % (Manual) Nucleated RBC % Lymphocytes # (Manual) PT INR POC ABG pH POC ABG pCO2 POC ABG pO2 Sodium 149 H 150 H Potassium 3.2 L 3.2 L Chloride 109.1 H Carbon Dioxide 8 L* 8 L* BUN 52 H 49 H Creatinine 3.4 H 3.1 H Glucose 723 H* 574 H* POC Glucose Lactic Acid 18.80 H* Calcium Phosphorus Magnesium Total Bilirubin Direct Bilirubin AST ALT Alkaline Phosphatase CK-MB (CK-2) Troponin T C-Reactive Protein Total Protein Albumin Triglycerides Cholesterol HDL Cholesterol Urine Creatinine Urine Total Protein Crossmatch 12/04/16 12/04/16 12/04/16 13:01 14:41 16:06 WBC RBC Hgb Hct MCV MCHC RDW Plt Count Seg Neuts % (Manual) Lymphocytes % (Manual) Nucleated RBC % Lymphocytes # (Manual) PT INR POC ABG pH POC ABG pCO2 POC ABG pO2 Sodium 151 H Potassium 3.2 L Chloride 108.1 H Carbon Dioxide 10 L BUN 49 H Creatinine 3.0 H Glucose 383 H POC Glucose 292 H Lactic Acid Calcium Phosphorus Magnesium Total Bilirubin Direct Bilirubin AST ALT Alkaline Phosphatase CK-MB (CK-2) Troponin T C-Reactive Protein 3.50 H Total Protein Albumin Triglycerides Cholesterol HDL Cholesterol Urine Creatinine Urine Total Protein Crossmatch 12/04/16 12/04/16 12/04/16 17:15 17:25 18:07 WBC RBC Hgb Hct MCV MCHC RDW Plt Count Seg Neuts % (Manual) Lymphocytes % (Manual) Nucleated RBC % Lymphocytes # (Manual) PT INR POC ABG pH 7.255 L POC ABG pCO2 16.9 L POC ABG pO2 169 H Sodium Potassium Chloride Carbon Dioxide BUN Creatinine Glucose POC Glucose 246 H Lactic Acid 18.50 H* Calcium Phosphorus Magnesium Total Bilirubin Direct Bilirubin AST ALT Alkaline Phosphatase CK-MB (CK-2) Troponin T C-Reactive Protein Total Protein Albumin Triglycerides Cholesterol HDL Cholesterol Urine Creatinine Urine Total Protein Crossmatch 12/04/16 12/04/16 12/04/16 19:34 20:31 21:15 WBC RBC Hgb Hct MCV MCHC RDW Plt Count Seg Neuts % (Manual) Lymphocytes % (Manual) Nucleated RBC % Lymphocytes # (Manual) PT INR POC ABG pH POC ABG pCO2 POC ABG pO2 Sodium Potassium Chloride Carbon Dioxide BUN Creatinine Glucose POC Glucose 189 H 126 H 139 H Lactic Acid Calcium Phosphorus Magnesium Total Bilirubin Direct Bilirubin AST ALT Alkaline Phosphatase CK-MB (CK-2) Troponin T C-Reactive Protein Total Protein Albumin Triglycerides Cholesterol HDL Cholesterol Urine Creatinine Urine Total Protein Crossmatch 12/04/16 12/04/16 12/04/16 21:25 22:37 23:35 WBC RBC Hgb Hct MCV MCHC RDW Plt Count Seg Neuts % (Manual) Lymphocytes % (Manual) Nucleated RBC % Lymphocytes # (Manual) PT INR POC ABG pH 7.294 L POC ABG pCO2 16.7 L POC ABG pO2 169 H Sodium Potassium Chloride Carbon Dioxide BUN Creatinine Glucose POC Glucose 131 H 106 H Lactic Acid Calcium Phosphorus Magnesium Total Bilirubin Direct Bilirubin AST ALT Alkaline Phosphatase CK-MB (CK-2) Troponin T C-Reactive Protein Total Protein Albumin Triglycerides Cholesterol HDL Cholesterol Urine Creatinine Urine Total Protein Crossmatch 12/05/16 12/05/16 12/05/16 02:40 02:50 02:50 WBC RBC Hgb Hct MCV MCHC RDW Plt Count Seg Neuts % (Manual) Lymphocytes % (Manual) Nucleated RBC % Lymphocytes # (Manual) PT INR POC ABG pH POC ABG pCO2 POC ABG pO2 Sodium 151 H Potassium Chloride 113.8 H Carbon Dioxide 12 L BUN 46 H Creatinine 3.2 H Glucose 165 H POC Glucose 109 H Lactic Acid 9.80 H* Calcium 8.3 L Phosphorus Magnesium Total Bilirubin Direct Bilirubin AST ALT Alkaline Phosphatase CK-MB (CK-2) Troponin T C-Reactive Protein Total Protein Albumin Triglycerides Cholesterol HDL Cholesterol Urine Creatinine Urine Total Protein Crossmatch 12/05/16 12/05/16 12/05/16 04:01 04:30 04:30 WBC 19.1 H RBC 2.91 L Hgb 8.0 L Hct 25.4 L MCV MCHC RDW 17.8 H Plt Count Seg Neuts % (Manual) 17.0 L Lymphocytes % (Manual) 7.0 L Nucleated RBC % 3.0 H Lymphocytes # (Manual) PT INR POC ABG pH POC ABG pCO2 POC ABG pO2 Sodium 152 H Potassium Chloride 113.5 H Carbon Dioxide 12 L BUN 47 H Creatinine 3.2 H Glucose 133 H POC Glucose 179 H Lactic Acid Calcium 8.3 L Phosphorus 1.00 L D Magnesium Total Bilirubin Direct Bilirubin AST ALT Alkaline Phosphatase CK-MB (CK-2) Troponin T C-Reactive Protein Total Protein Albumin Triglycerides Cholesterol HDL Cholesterol Urine Creatinine Urine Total Protein Crossmatch 12/05/16 12/05/16 12/05/16 05:32 05:57 08:01 WBC RBC Hgb Hct MCV MCHC RDW Plt Count Seg Neuts % (Manual) Lymphocytes % (Manual) Nucleated RBC % Lymphocytes # (Manual) PT INR POC ABG pH 7.258 L POC ABG pCO2 18.6 L POC ABG pO2 33 L Sodium Potassium Chloride Carbon Dioxide BUN Creatinine Glucose POC Glucose 126 H 130 H Lactic Acid Calcium Phosphorus Magnesium Total Bilirubin Direct Bilirubin AST ALT Alkaline Phosphatase CK-MB (CK-2) Troponin T C-Reactive Protein Total Protein Albumin Triglycerides Cholesterol HDL Cholesterol Urine Creatinine Urine Total Protein Crossmatch 12/05/16 12/05/16 12/05/16 08:48 08:54 12:01 WBC RBC Hgb Hct MCV MCHC RDW Plt Count Seg Neuts % (Manual) Lymphocytes % (Manual) Nucleated RBC % Lymphocytes # (Manual) PT INR POC ABG pH POC ABG pCO2 17.6 L POC ABG pO2 62 L Sodium Potassium Chloride Carbon Dioxide BUN Creatinine Glucose POC Glucose 157 H 117 H Lactic Acid Calcium Phosphorus Magnesium Total Bilirubin Direct Bilirubin AST ALT Alkaline Phosphatase CK-MB (CK-2) Troponin T C-Reactive Protein Total Protein Albumin Triglycerides Cholesterol HDL Cholesterol Urine Creatinine Urine Total Protein Crossmatch 12/05/16 12/05/16 12/05/16 15:15 16:10 16:55 WBC RBC Hgb Hct MCV MCHC RDW Plt Count Seg Neuts % (Manual) Lymphocytes % (Manual) Nucleated RBC % Lymphocytes # (Manual) PT INR POC ABG pH POC ABG pCO2 POC ABG pO2 Sodium Potassium Chloride Carbon Dioxide BUN Creatinine Glucose POC Glucose 166 H 178 H Lactic Acid Calcium Phosphorus 5.00 H D Magnesium Total Bilirubin Direct Bilirubin AST ALT Alkaline Phosphatase CK-MB (CK-2) Troponin T C-Reactive Protein Total Protein Albumin Triglycerides Cholesterol HDL Cholesterol Urine Creatinine Urine Total Protein Crossmatch 12/05/16 12/05/16 12/05/16 17:08 18:08 18:51 WBC RBC Hgb Hct MCV MCHC RDW Plt Count Seg Neuts % (Manual) Lymphocytes % (Manual) Nucleated RBC % Lymphocytes # (Manual) PT INR POC ABG pH POC ABG pCO2 POC ABG pO2 Sodium Potassium Chloride Carbon Dioxide BUN Creatinine Glucose POC Glucose 169 H 147 H 113 H Lactic Acid Calcium Phosphorus Magnesium Total Bilirubin Direct Bilirubin AST ALT Alkaline Phosphatase CK-MB (CK-2) Troponin T C-Reactive Protein Total Protein Albumin Triglycerides Cholesterol HDL Cholesterol Urine Creatinine Urine Total Protein Crossmatch 12/05/16 12/05/16 12/05/16 20:04 21:34 22:08 WBC RBC Hgb Hct MCV MCHC RDW Plt Count Seg Neuts % (Manual) Lymphocytes % (Manual) Nucleated RBC % Lymphocytes # (Manual) PT INR POC ABG pH 7.303 L POC ABG pCO2 18.3 L POC ABG pO2 73 L Sodium Potassium Chloride Carbon Dioxide BUN Creatinine Glucose POC Glucose 64 L 141 H Lactic Acid Calcium Phosphorus Magnesium Total Bilirubin Direct Bilirubin AST ALT Alkaline Phosphatase CK-MB (CK-2) Troponin T C-Reactive Protein Total Protein Albumin Triglycerides Cholesterol HDL Cholesterol Urine Creatinine Urine Total Protein Crossmatch 12/05/16 12/06/16 12/06/16 23:19 00:01 01:09 WBC RBC Hgb Hct MCV MCHC RDW Plt Count Seg Neuts % (Manual) Lymphocytes % (Manual) Nucleated RBC % Lymphocytes # (Manual) PT INR POC ABG pH POC ABG pCO2 POC ABG pO2 Sodium Potassium Chloride Carbon Dioxide BUN Creatinine Glucose POC Glucose 200 H 211 H 116 H Lactic Acid Calcium Phosphorus Magnesium Total Bilirubin Direct Bilirubin AST ALT Alkaline Phosphatase CK-MB (CK-2) Troponin T C-Reactive Protein Total Protein Albumin Triglycerides Cholesterol HDL Cholesterol Urine Creatinine Urine Total Protein Crossmatch 12/06/16 12/06/16 12/06/16 02:00 04:14 04:50 WBC RBC 2.68 L Hgb 7.6 L Hct 23.2 L MCV MCHC RDW 18.9 H Plt Count Seg Neuts % (Manual) 32.0 L Lymphocytes % (Manual) Nucleated RBC % 3.0 H Lymphocytes # (Manual) 0.9 L PT INR POC ABG pH POC ABG pCO2 POC ABG pO2 Sodium Potassium Chloride Carbon Dioxide BUN Creatinine Glucose POC Glucose 57 L 133 H Lactic Acid Calcium Phosphorus Magnesium Total Bilirubin Direct Bilirubin AST ALT Alkaline Phosphatase CK-MB (CK-2) Troponin T C-Reactive Protein Total Protein Albumin Triglycerides Cholesterol HDL Cholesterol Urine Creatinine Urine Total Protein Crossmatch 12/06/16 12/06/16 12/06/16 04:50 04:50 05:04 WBC RBC Hgb Hct MCV MCHC RDW Plt Count Seg Neuts % (Manual) Lymphocytes % (Manual) Nucleated RBC % Lymphocytes # (Manual) PT INR POC ABG pH POC ABG pCO2 13.0 L POC ABG pO2 111 H Sodium Potassium 5.8 H D Chloride 111.5 H Carbon Dioxide 11 L BUN 52 H Creatinine 3.8 H Glucose 186 H POC Glucose Lactic Acid 6.50 H* Calcium 6.5 L D Phosphorus 5.80 H Magnesium Total Bilirubin Direct Bilirubin AST ALT Alkaline Phosphatase CK-MB (CK-2) Troponin T C-Reactive Protein Total Protein Albumin Triglycerides Cholesterol HDL Cholesterol Urine Creatinine Urine Total Protein Crossmatch 12/06/16 12/06/16 12/06/16 05:07 06:10 06:54 WBC RBC Hgb Hct MCV MCHC RDW Plt Count Seg Neuts % (Manual) Lymphocytes % (Manual) Nucleated RBC % Lymphocytes # (Manual) PT INR POC ABG pH POC ABG pCO2 POC ABG pO2 Sodium Potassium Chloride Carbon Dioxide BUN Creatinine Glucose POC Glucose 127 H 219 H 237 H Lactic Acid Calcium Phosphorus Magnesium Total Bilirubin Direct Bilirubin AST ALT Alkaline Phosphatase CK-MB (CK-2) Troponin T C-Reactive Protein Total Protein Albumin Triglycerides Cholesterol HDL Cholesterol Urine Creatinine Urine Total Protein Crossmatch 12/06/16 12/06/16 12/06/16 07:46 08:55 10:27 WBC RBC Hgb Hct MCV MCHC RDW Plt Count Seg Neuts % (Manual) Lymphocytes % (Manual) Nucleated RBC % Lymphocytes # (Manual) PT INR POC ABG pH POC ABG pCO2 POC ABG pO2 Sodium Potassium Chloride Carbon Dioxide BUN Creatinine Glucose POC Glucose 158 H 40 L 128 H Lactic Acid Calcium Phosphorus Magnesium Total Bilirubin Direct Bilirubin AST ALT Alkaline Phosphatase CK-MB (CK-2) Troponin T C-Reactive Protein Total Protein Albumin Triglycerides Cholesterol HDL Cholesterol Urine Creatinine Urine Total Protein Crossmatch 12/06/16 12/06/16 12/06/16 11:58 18:14 19:00 WBC RBC Hgb Hct MCV MCHC RDW Plt Count Seg Neuts % (Manual) Lymphocytes % (Manual) Nucleated RBC % Lymphocytes # (Manual) PT INR POC ABG pH POC ABG pCO2 POC ABG pO2 Sodium 149 H Potassium 5.6 H Chloride 115.9 H Carbon Dioxide 13 L BUN 56 H Creatinine 4.3 H Glucose 124 H POC Glucose 144 H 55 L Lactic Acid Calcium 6.0 L Phosphorus Magnesium Total Bilirubin Direct Bilirubin AST ALT Alkaline Phosphatase CK-MB (CK-2) Troponin T C-Reactive Protein Total Protein Albumin Triglycerides Cholesterol HDL Cholesterol Urine Creatinine Urine Total Protein Crossmatch 12/06/16 12/06/16 12/06/16 19:06 21:24 21:51 WBC RBC Hgb Hct MCV MCHC RDW Plt Count Seg Neuts % (Manual) Lymphocytes % (Manual) Nucleated RBC % Lymphocytes # (Manual) PT INR POC ABG pH POC ABG pCO2 17.0 L POC ABG pO2 142 H Sodium Potassium Chloride Carbon Dioxide BUN Creatinine Glucose POC Glucose 148 H 107 H Lactic Acid Calcium Phosphorus Magnesium Total Bilirubin Direct Bilirubin AST ALT Alkaline Phosphatase CK-MB (CK-2) Troponin T C-Reactive Protein Total Protein Albumin Triglycerides Cholesterol HDL Cholesterol Urine Creatinine Urine Total Protein Crossmatch 12/07/16 12/07/16 12/07/16 02:32 05:01 05:25 WBC RBC Hgb Hct MCV MCHC RDW Plt Count Seg Neuts % (Manual) Lymphocytes % (Manual) Nucleated RBC % Lymphocytes # (Manual) PT INR POC ABG pH 7.300 L POC ABG pCO2 17.1 L POC ABG pO2 140 H Sodium Potassium Chloride Carbon Dioxide BUN Creatinine Glucose POC Glucose 175 H 279 H Lactic Acid Calcium Phosphorus Magnesium Total Bilirubin Direct Bilirubin AST ALT Alkaline Phosphatase CK-MB (CK-2) Troponin T C-Reactive Protein Total Protein Albumin Triglycerides Cholesterol HDL Cholesterol Urine Creatinine Urine Total Protein Crossmatch 12/07/16 12/07/16 12/07/16 06:00 06:00 06:00 WBC RBC 2.52 L Hgb 7.1 L Hct 22.1 L MCV MCHC RDW 19.3 H Plt Count 90 L Seg Neuts % (Manual) 75.0 H Lymphocytes % (Manual) 11.0 L Nucleated RBC % Lymphocytes # (Manual) 0.7 L PT INR POC ABG pH POC ABG pCO2 POC ABG pO2 Sodium Potassium Chloride Carbon Dioxide BUN Creatinine Glucose POC Glucose Lactic Acid Calcium Phosphorus 6.80 H Magnesium Total Bilirubin Direct Bilirubin AST ALT Alkaline Phosphatase CK-MB (CK-2) Troponin T C-Reactive Protein 39.40 H Total Protein Albumin Triglycerides Cholesterol HDL Cholesterol Urine Creatinine Urine Total Protein Crossmatch 12/07/16 12/07/16 12/07/16 07:30 08:40 10:53 WBC RBC Hgb Hct MCV MCHC RDW Plt Count Seg Neuts % (Manual) Lymphocytes % (Manual) Nucleated RBC % Lymphocytes # (Manual) PT INR POC ABG pH POC ABG pCO2 POC ABG pO2 Sodium Potassium 7.0 H* D Chloride 112.4 H Carbon Dioxide 8 L* BUN 61 H Creatinine 5.1 H Glucose 213 H POC Glucose 353 H Lactic Acid 6.90 H* Calcium 5.8 L* Phosphorus Magnesium Total Bilirubin Direct Bilirubin AST ALT Alkaline Phosphatase CK-MB (CK-2) Troponin T C-Reactive Protein Total Protein Albumin Triglycerides Cholesterol HDL Cholesterol Urine Creatinine Urine Total Protein Crossmatch 12/07/16 12/07/16 12/07/16 14:31 14:45 15:33 WBC RBC Hgb Hct MCV MCHC RDW Plt Count Seg Neuts % (Manual) Lymphocytes % (Manual) Nucleated RBC % Lymphocytes # (Manual) PT 17.5 H INR 1.44 H POC ABG pH POC ABG pCO2 POC ABG pO2 Sodium Potassium Chloride Carbon Dioxide BUN Creatinine Glucose POC Glucose 52 L < 40 L Lactic Acid Calcium Phosphorus Magnesium Total Bilirubin Direct Bilirubin AST ALT Alkaline Phosphatase CK-MB (CK-2) Troponin T C-Reactive Protein Total Protein Albumin Triglycerides Cholesterol HDL Cholesterol Urine Creatinine Urine Total Protein Crossmatch 12/07/16 12/07/16 12/07/16 16:22 21:35 21:35 WBC RBC Hgb Hct MCV MCHC RDW Plt Count Seg Neuts % (Manual) Lymphocytes % (Manual) Nucleated RBC % Lymphocytes # (Manual) PT INR POC ABG pH POC ABG pCO2 POC ABG pO2 Sodium 150 H Potassium 3.3 L D Chloride 111.4 H Carbon Dioxide 21 L D BUN 22 H Creatinine 2.6 H Glucose 23 L* POC Glucose 118 H Lactic Acid Calcium Phosphorus Magnesium Total Bilirubin 1.40 H Direct Bilirubin 0.9 H AST 94 H ALT 142 H Alkaline Phosphatase 249 H CK-MB (CK-2) Troponin T C-Reactive Protein Total Protein 4.6 L D Albumin 2.1 L Triglycerides Cholesterol HDL Cholesterol Urine Creatinine Urine Total Protein Crossmatch 12/07/16 12/07/16 12/08/16 21:58 23:31 04:43 WBC RBC Hgb Hct MCV MCHC RDW Plt Count Seg Neuts % (Manual) Lymphocytes % (Manual) Nucleated RBC % Lymphocytes # (Manual) PT INR POC ABG pH 7.586 H POC ABG pCO2 17.7 L POC ABG pO2 150 H Sodium Potassium Chloride Carbon Dioxide BUN Creatinine Glucose POC Glucose < 40 L 42 L Lactic Acid Calcium Phosphorus Magnesium Total Bilirubin Direct Bilirubin AST ALT Alkaline Phosphatase CK-MB (CK-2) Troponin T C-Reactive Protein Total Protein Albumin Triglycerides Cholesterol HDL Cholesterol Urine Creatinine Urine Total Protein Crossmatch 12/08/16 12/08/16 12/08/16 04:50 04:50 04:59 WBC RBC 2.35 L Hgb 6.6 L Hct 20.1 L MCV MCHC RDW 17.8 H Plt Count 48 L Seg Neuts % (Manual) Lymphocytes % (Manual) Nucleated RBC % Lymphocytes # (Manual) 0.9 L PT INR POC ABG pH POC ABG pCO2 POC ABG pO2 Sodium 149 H Potassium 3.2 L Chloride 111.8 H Carbon Dioxide 17 L BUN 26 H Creatinine 3.4 H Glucose 163 H POC Glucose 204 H Lactic Acid Calcium 7.7 L Phosphorus 2.40 L D Magnesium Total Bilirubin Direct Bilirubin AST ALT Alkaline Phosphatase CK-MB (CK-2) Troponin T C-Reactive Protein Total Protein Albumin Triglycerides Cholesterol HDL Cholesterol Urine Creatinine Urine Total Protein Crossmatch 12/08/16 12/08/16 12/08/16 06:54 08:04 08:46 WBC RBC Hgb Hct MCV MCHC RDW Plt Count Seg Neuts % (Manual) Lymphocytes % (Manual) Nucleated RBC % Lymphocytes # (Manual) PT INR POC ABG pH POC ABG pCO2 POC ABG pO2 Sodium 147 H Potassium 2.9 L* Chloride 110.6 H Carbon Dioxide 17 L BUN 28 H Creatinine 3.6 H Glucose 127 H POC Glucose 203 H 205 H Lactic Acid Calcium 7.3 L Phosphorus Magnesium Total Bilirubin Direct Bilirubin AST ALT Alkaline Phosphatase CK-MB (CK-2) Troponin T C-Reactive Protein Total Protein Albumin Triglycerides Cholesterol HDL Cholesterol Urine Creatinine Urine Total Protein Crossmatch 12/08/16 08:46 WBC RBC Hgb Hct MCV MCHC RDW Plt Count Seg Neuts % (Manual) Lymphocytes % (Manual) Nucleated RBC % Lymphocytes # (Manual) PT INR POC ABG pH POC ABG pCO2 POC ABG pO2 Sodium Potassium Chloride Carbon Dioxide BUN Creatinine Glucose POC Glucose Lactic Acid Calcium Phosphorus Magnesium Total Bilirubin Direct Bilirubin AST ALT Alkaline Phosphatase CK-MB (CK-2) Troponin T C-Reactive Protein Total Protein Albumin Triglycerides Cholesterol HDL Cholesterol Urine Creatinine Urine Total Protein Crossmatch See Detail Chest x-ray: image reviewed
[2016-12-08] MEDS: PEPCID PO SCH (13:49)
--- NOTE | 2016-12-08 18:51 | Progress Note ---
Assessment and Plan Assessment and plan: Patient is a 46-year-old woman with history of insulin-dependent diabetes mellitus, hypertension, recent SAH and dyslipidemia who presented with DKA, AMS and STEMI with V. fib arrest requiring IV amiodarone suppression. She is currently intubated. She has a right groin triple-lumen catheter, Short, NG tube, ET tube, she was on IV insulin drip for documented DKA. Also, she is on Levophed, IV vancomycin and propofol drip. -Cardiac arrest with V. fib: Cardiology is following -ARF, ATN, poa: renal is following, on hemodialysis -Acute hypoxic respiratory failure, intubated: Line Palletizer is following -Cardiac arrest was STEMI: Cardiology is following -Suspected DKA: insulin -Acidosis, treat the DKA -Acute metabolic encephalopathy, poa -Leukocytosis on iv zosyn, +GNR in trach aspirate -DVT prophylaxis: SCDs only due to recent SAH s/p 1 unit of prbc with HD today, will give another unit plt counts dropped: consult Heme/onc, Dr. Rico poor prognosis get FDP/DIC panel, coags, LDH, PBS History Interval history: Patient seen and examined. Follow up on cardiac arrest, Imaging, old records, testing, labs, nursing notes reviewed. Hospitalist Physical - Physical exam Narrative exam: GEN: Intubated, ETT in place, CVS: regular, +3/6 murmur, NORMAL S1S2 LUNGS/CHEST: irregular chest inspiration, GOOD AIR ENTRY B ABD: SOFT, pbs NEURO: sedated - Constitutional Vitals: Temp Pulse Resp BP Pulse Ox 98.7 F 114 H 20 101/64 100 12/08/16 13:30 12/08/16 17:00 12/08/16 17:00 12/08/16 17:00 12/08/16 17:00 General appearance: Present: severe distress Results - Labs CBC & Chem 7: 12/08/16 04:50 12/08/16 08:46 Labs: Laboratory Last Values WBC 5.2 K/mm3 (4.5-11.0) 12/08/16 04:50 RBC 2.35 M/mm3 (3.65-5.03) L 12/08/16 04:50 Hgb 6.6 gm/dl (10.1-14.3) L 12/08/16 04:50 Hct 20.1 % (30.3-42.9) L 12/08/16 04:50 MCV 86 fl (79-97) 12/08/16 04:50 MCH 28 pg (28-32) 12/08/16 04:50 MCHC 33 % (30-34) 12/08/16 04:50 RDW 17.8 % (13.2-15.2) H 12/08/16 04:50 Plt Count 48 K/mm3 (140-440) L 12/08/16 04:50 Add Manual Diff Complete 12/08/16 04:50 Total Counted 100 12/08/16 04:50 Seg Neuts % (Manual) 70.0 % (40.0-70.0) 12/08/16 04:50 Band Neutrophils % 12.0 % 12/08/16 04:50 Lymphocytes % (Manual) 18.0 % (13.4-35.0) 12/08/16 04:50 Reactive Lymphs % (Man) 0 % 12/08/16 04:50 Monocytes % (Manual) 0 % (0.0-7.3) 12/08/16 04:50 Eosinophils % (Manual) 0 % (0.0-4.3) 12/08/16 04:50 Basophils % (Manual) 0 % (0.0-1.8) 12/08/16 04:50 Metamyelocytes % 0 % 12/08/16 04:50 Myelocytes % 0 % 12/08/16 04:50 Promyelocytes % 0 % 12/08/16 04:50 Blast Cells % 0 % 12/08/16 04:50 Nucleated RBC % Not Reportable 12/08/16 04:50 Seg Neutrophils # Man 3.6 K/mm3 (1.8-7.7) 12/08/16 04:50 Band Neutrophils # 0.6 K/mm3 12/08/16 04:50 Lymphocytes # (Manual) 0.9 K/mm3 (1.2-5.4) L 12/08/16 04:50 Abs React Lymphs (Man) 0.0 K/mm3 12/08/16 04:50 Monocytes # (Manual) 0.0 K/mm3 (0.0-0.8) 12/08/16 04:50 Eosinophils # (Manual) 0.0 K/mm3 (0.0-0.4) 12/08/16 04:50 Basophils # (Manual) 0.0 K/mm3 (0.0-0.1) 12/08/16 04:50 Metamyelocytes # 0.0 K/mm3 12/08/16 04:50 Myelocytes # 0.0 K/mm3 12/08/16 04:50 Promyelocytes # 0.0 K/mm3 12/08/16 04:50 Blast Cells # 0.0 K/mm3 12/08/16 04:50 WBC Morphology Not Reportable 12/08/16 04:50 Hypersegmented Neuts Not Reportable 12/08/16 04:50 Hyposegmented Neuts Not Reportable 12/08/16 04:50 Hypogranular Neuts Not Reportable 12/08/16 04:50 Smudge Cells Not Reportable 12/08/16 04:50 Toxic Granulation Not Reportable 12/08/16 04:50 Toxic Vacuolation Not Reportable 12/08/16 04:50 Dohle Bodies 1+ 12/08/16 04:50 Pelger-Huet Anomaly Not Reportable 12/08/16 04:50 Mary Rods Not Reportable 12/08/16 04:50 Platelet Estimate Consistent w auto 12/08/16 04:50 Clumped Platelets Not Reportable 12/08/16 04:50 Plt Clumps, EDTA Not Reportable 12/08/16 04:50 Large Platelets Not Reportable 12/08/16 04:50 Giant Platelets Not Reportable 12/08/16 04:50 Platelet Satelliting Not Reportable 12/08/16 04:50 Plt Morphology Comment Not Reportable 12/08/16 04:50 RBC Morphology Not Reportable 12/08/16 04:50 Dimorphic RBCs Not Reportable 12/08/16 04:50 Polychromasia Not Reportable 12/08/16 04:50 Hypochromasia Not Reportable 12/08/16 04:50 Poikilocytosis 2+ 12/08/16 04:50 Anisocytosis 1+ 12/08/16 04:50 Microcytosis Not Reportable 12/08/16 04:50 Macrocytosis Not Reportable 12/08/16 04:50 Spherocytes Not Reportable 12/08/16 04:50 Pappenheimer Bodies Not Reportable 12/08/16 04:50 Sickle Cells Not Reportable 12/08/16 04:50 Target Cells Few 12/08/16 04:50 Tear Drop Cells Not Reportable 12/08/16 04:50 Ovalocytes Not Reportable 12/08/16 04:50 Helmet Cells Not Reportable 12/08/16 04:50 [place] Bodies Not Reportable 12/08/16 04:50 [place]le Rings Not Reportable 12/08/16 04:50 Jerri Cells 2+ 12/08/16 04:50 Bite Cells Not Reportable 12/08/16 04:50 Crenated Cell Not Reportable 12/08/16 04:50 Elliptocytes Not Reportable 12/08/16 04:50 Acanthocytes (Spur) 1+ 12/08/16 04:50 Rouleaux Not Reportable 12/08/16 04:50 Hemoglobin C Crystals Not Reportable 12/08/16 04:50 Schistocytes Not Reportable 12/08/16 04:50 Malaria parasites Not Reportable 12/08/16 04:50 Michael Bodies Not Reportable 12/08/16 04:50 Hem Pathologist Commnt No 12/08/16 04:50 PT 17.5 Sec. (12.2-14.9) H 12/07/16 14:45 INR 1.44 (0.87-1.13) H 12/07/16 14:45 APTT 30.7 Sec. (24.2-36.6) 12/07/16 14:45 POC ABG pH 7.586 (7.35-7.45) H 12/08/16 04:43 POC ABG pCO2 17.7 (35-45) L 12/08/16 04:43 POC ABG pO2 150 (80-105) H 12/08/16 04:43 POC ABG HCO3 16.9 12/08/16 04:43 POC ABG Total CO2 17 12/08/16 04:43 POC ABG O2 Sat 100 12/08/16 04:43 POC ABG Base Excess -5 12/08/16 04:43 FiO2 30 % 12/08/16 04:43 Sodium 147 mmol/L (137-145) H 12/08/16 08:46 Potassium 2.9 mmol/L (3.6-5.0) L* 12/08/16 08:46 Chloride 110.6 mmol/L (98-107) H 12/08/16 08:46 Carbon Dioxide 17 mmol/L (22-30) L 12/08/16 08:46 Anion Gap 22 mmol/L 12/08/16 08:46 BUN 28 mg/dL (7-17) H 12/08/16 08:46 Creatinine 3.6 mg/dL (0.7-1.2) H 12/08/16 08:46 Estimated GFR 16 ml/min 12/08/16 08:46 BUN/Creatinine Ratio 7.77 % 12/08/16 08:46 Glucose 127 mg/dL (65-100) H 12/08/16 08:46 POC Glucose 205 (70-105) H 12/08/16 08:04 Lactic Acid 6.90 mmol/L (0.7-2.0) H* 12/07/16 07:30 Calcium 7.3 mg/dL (8.4-10.2) L 12/08/16 08:46 Phosphorus 2.40 mg/dL (2.5-4.5) L D 12/08/16 04:50 Magnesium 2.20 mg/dL (1.7-2.3) 12/07/16 06:00 Total Bilirubin 1.40 mg/dL (0.1-1.2) H 12/07/16 21:35 Direct Bilirubin 0.9 mg/dL (0-0.2) H 12/07/16 21:35 Indirect Bilirubin 0.5 mg/dL 12/07/16 21:35 AST 94 units/L (5-40) H 12/07/16 21:35 ALT 142 units/L (7-56) H 12/07/16 21:35 Alkaline Phosphatase 249 units/L (35-129) H 12/07/16 21:35 Total Creatine Kinase 123 units/L (30-135) 12/04/16 09:55 CK-MB (CK-2) 4.6 ng/mL (0.0-4.0) H 12/04/16 09:55 CK-MB (CK-2) Rel Index 3.7 (0-4) 12/04/16 09:55 Troponin T 0.140 ng/mL (0.00-0.029) H* D 12/04/16 09:55 C-Reactive Protein 39.40 mg/dL (0.00-1.30) H 12/07/16 06:00 Total Protein 4.6 g/dL (6.3-8.2) L D 12/07/16 21:35 Albumin 2.1 g/dL (3.9-5) L 12/07/16 21:35 Albumin/Globulin Ratio 0.8 % 12/07/16 21:35 Triglycerides 570 mg/dL (2-149) H 12/04/16 07:55 Cholesterol 221 mg/dL (50-199) H 12/04/16 07:55 LDL Cholesterol Direct TNR 12/04/16 07:55 HDL Cholesterol 37 mg/dL (40-59) L 12/04/16 07:55 Cholesterol/HDL Ratio 5.97 % 12/04/16 07:55 TSH 1.600 mlU/mL (0.270-4.200) 12/03/16 23:20 Urine Color Yellow (Yellow) 12/04/16 11:25 Urine Turbidity Slightly-cloudy (Clear) 12/04/16 11:25 Urine pH 5.0 (5.0-7.0) 12/04/16 11:25 Ur Specific Hatch 1.018 (1.003-1.030) 12/04/16 11:25 Urine Protein 30 mg/dl mg/dL (Negative) 12/04/16 11:25 Urine Glucose (UA) >=500 mg/dL (Negative) 12/04/16 11:25 Urine Ketones Tr mg/dL (Negative) 12/04/16 11:25 Urine Blood Sm (Negative) 12/04/16 11:25 Urine Nitrite Neg (Negative) 12/04/16 11:25 Urine Bilirubin Neg (Negative) 12/04/16 11:25 Urine Urobilinogen < 2.0 mg/dL (<2.0) 12/04/16 11:25 Ur Leukocyte Esterase Neg (Negative) 12/04/16 11:25 Urine WBC (Auto) 4.0 /HPF (0.0-6.0) 12/04/16 11:25 Urine RBC (Auto) 2.0 /HPF (0.0-6.0) 12/04/16 11:25 U Epithel Cells (Auto) < 1.0 /HPF (0-13.0) 12/04/16 11:25 Urine Mucus Few /HPF 12/04/16 11:25 Urine Osmolality 419 Mosm/kg 12/04/16 11:25 Urine Creatinine 29.5 mg/dL (0.1-20.0) H 12/04/16 11:25 Protein/Creatinin Ratio 1.12 12/04/16 11:25 Urine Sodium 26 mEq/L 12/04/16 11:25 Urine Total Protein 33 mg/dL (5-11.8) H 12/04/16 11:25 Urine Opiates Screen Presumptive negative 12/04/16 11:25 Urine Methadone Screen Presumptive negative 12/04/16 11:25 Ur Barbiturates Screen Presumptive negative 12/04/16 11:25 Ur Phencyclidine Scrn Presumptive negative 12/04/16 11:25 Ur Amphetamines Screen Presumptive negative 12/04/16 11:25 U Benzodiazepines Scrn Presumptive negative 12/04/16 11:25 Urine Cocaine Screen Presumptive negative 12/04/16 11:25 U Marijuana (THC) Screen Presumptive positive 12/04/16 11:25 Drugs of Abuse Note Disclamer 12/04/16 11:25 Blood Type O POSITIVE 12/08/16 08:46 Antibody Screen TNR 12/08/16 08:46 ISAIAH Antibody Screen Negative 12/08/16 08:46 Crossmatch See Detail 12/08/16 08:46
[2016-12-08 19:48] LABS: Hematocrit 23.7 % (30.3-42.9); Hemoglobin 7.8 gm/dl (10.1-14.3); Mean Corpuscular HGB Conc 33 % (30-34); Mean Corpuscular Hemoglobin 28 pg (28-32); Mean Corpuscular Volume 86 fl (79-97); Platelet Count 38 K/mm3 (140-440); Red Blood Count 2.76 M/mm3 (3.65-5.03); White Blood Count 7.6 K/mm3 (4.5-11.0)
[2016-12-08 19:58] LABS: INR 1.22 (0.87-1.13)
[2016-12-08 19:59] LABS: Partial Thromboplastin Time 36.2 Sec. (24.2-36.6)
[2016-12-08 20:02] LABS: BUN/Creatinine Ratio 7.05; Calcium 9.6 mg/dL (8.4-10.2); Chloride 106.5 mmol/L (98-107); Potassium 3.8 mmol/L (3.6-5.0)
--- NOTE | 2016-12-08 22:33 | Hem/Onc Consultation ---
History of Present Illness - Reason for Consult Consult date: 12/08/16 thrombocytopenia Requesting physician: ANGLE TRIVEDI - History of Present Illness Ms Ingram is a 46 yof with a history of diabetes who was admitted 12/04/16 with a history of altered mental status. She was found to be in DKA and also treated for myocardial infarction. She has since been intubated and is being treated for sepsis. Around day 3-4 of her hospitalization, her platelet count started dropping. She is now on dialysis. She has anemia as well, no overt bleeding. She is alert and can nod yes/no. She has had low grade fevers while in the unit. Past History Past Medical History: anemia, diabetes, hypertension, hyperlipidemia, renal failure Past Surgical History: No surgical history Social history: no significant social history Family history: no significant family history Medications and Allergies Allergies Allergy/AdvReac Type Severity Reaction Status Date / Time No Known Allergies Allergy Verified 12/03/16 23:01 Home Medications Medication Instructions Recorded Confirmed Last Taken Type Calcium Carbonate [Oscal] 1,250 mg PO BID #60 tablet 11/08/16 12/05/16 Unknown Rx Insulin NPH/Regular [NovoLIN 70/30] 10 unit SUB-Q BIDDIAB 30 Days 11/08/1612/05 Unknown Rx Metoprolol [Lopressor TAB] 12.5 mg PO BID #60 tablet 11/08/16 12/05/16 Unknown Rx Metoprolol [Lopressor TAB] 25 mg PO BID #60 tablet 11/08/16 12/05/16 Unknown Rx Pantoprazole [Protonix TAB] 40 mg PO QDAY #30 tablet 11/08/16 12/05/16 Unknown Rx HumaLOG VIAL See Protocol SQ ACHS PRN 12/04/16 12/04/16 Unknown History Lantus VIAL 12/04/16 Unknown History Active Meds: Active Medications Acetaminophen (Tylenol) 650 mg OR Q6H PRN PRN Reason: for temp greater than 100 Last Admin: 12/06/16 00:06 Dose: 650 mg Lipase/Protease/Amylase (Pancreaze Dr 10,500 Unit) 1 each FEEDTUBE PRN PRN PRN Reason: For Clogged Feeding Tube Dextrose (D50w (25gm)) 50 ml IV PRN PRN PRN Reason: Hypoglycemia Last Admin: 12/07/16 23:35 Dose: 50 ml Famotidine (Pepcid) 20 mg PO DAILY ULI Last Admin: 12/08/16 13:49 Dose: 20 mg Heparin Sodium (Porcine) (Heparin) 5,000 unit IV CHEKO PRN PRN Reason: hemodialysis Last Admin: 12/07/16 20:34 Dose: 5,000 unit Hydrophilic Ointment (Vaseline Lip Therapy) 1 applic TP Q2HR PRN PRN Reason: Dry Lips Propofol (Diprivan 10 Mg/Ml) 1,000 mg in 100 mls @ 1.872 mls/hr IV TITR ULI; 5 MCG/KG/MIN PRN Reason: Protocol Last Admin: 12/08/16 21:36 Dose: 15 mcg/kg/min, 5.616 mls/hr Norepinephrine 8 mg/ Sodium (Chloride) 250 mls @ 3.75 mls/hr IV TITR ULI; 2 MCG /MIN PRN Reason: Protocol Last Titration: 12/08/16 16:15 Dose: 1 mcg/min, 1.87 mls/hr Fentanyl Citrate (Fentanyl Drip Premix) 2,000 mcg in 100 mls @ 2.72 mls/hr IV TITR ULI; 1 MCG/KG/HR PRN Reason: Protocol Piperacillin Sod/Tazobactam Sod (Zosyn/Ns 2.25 Gm/50ml) 2.25 gm in 50 mls @ 100 mls/hr IV Q8HR ULI PRN Reason: Protocol Last Admin: 12/08/16 21:37 Dose: 100 mls/hr Sodium Chloride (Nacl 0.9% 1000 Ml) 1,000 mls @ 100 mls/hr IV DIRECT ULI Stop: 12/09/16 01:59 Last Admin: 12/06/16 20:15 Dose: 100 mls/hr Vasopressin 20 unit/ Sodium (Chloride) 101 mls @ 9.09 mls/hr IV TITR ULI; 0.03 UNITS/MIN PRN Reason: Protocol Sodium Chloride (Nacl 0.9%) 100 mls @ 999 mls/hr IV CHEKO PRN PRN Reason: Hypotension Insulin Aspart (Novolog) 0 units SUB-Q Q6HR ULI PRN Reason: Protocol Last Admin: 12/08/16 17:40 Dose: Not Given Metoclopramide HCl (Reglan) 5 mg IV Q8H ULI Last Admin: 12/08/16 17:38 Dose: Not Given Morphine Sulfate (Morphine) 2 mg IV Q1HR PRN PRN Reason: Pain, Moderate (4-6) Last Admin: 12/06/16 22:58 Dose: 2 mg Multi-Ingred Cream/Lotion/Oil/Oint (Artificial Tears Ophth Oint) 1 applic OU Q4HR PRN PRN Reason: Dry Eye(s) Simple Syrup (Simple Syrup) 15 ml FEEDTUBE PRN PRN PRN Reason: Hypoglycemia Simple Syrup (Simple Syrup) 30 ml FEEDTUBE PRN PRN PRN Reason: Hypoglycemia Last Admin: 12/08/16 02:32 Dose: 30 ml Sodium Bicarbonate (Sodium Bicarbonate) 325 mg FEEDTUBE PRN PRN PRN Reason: For Clogged Feeding Tube Review of Systems ROS unobtainable: due to endotracheal tube Exam - Constitutional Vitals: Last Vital Signs Temp 100.5 F H 12/08/16 19:44 Pulse 112 H 12/08/16 19:30 Resp 20 12/08/16 19:30 BP 112/77 12/08/16 19:30 Pulse Ox 100 12/08/16 19:30 General appearance: no acute distress - EENT Eyes: PERRL - Respiratory Respiratory: bilateral: other (ventilated BS) - Cardiovascular Rhythm: regular Extremities: No edema - Gastrointestinal General gastrointestinal: Present: soft, non-tender - Integumentary Integumentary: warm, dry - Musculoskeletal Musculoskeletal: other - Neurologic Neurologic: other (intubated) Results - Labs lab Results: Laboratory Results - last 24 hr 12/07/16 12/07/16 12/07/16 21:35 21:35 22:27 WBC RBC Hgb Hct MCV MCH MCHC RDW Plt Count Add Manual Diff Total Counted Seg Neuts % (Manual) Band Neutrophils % Lymphocytes % (Manual) Reactive Lymphs % (Man) Monocytes % (Manual) Eosinophils % (Manual) Basophils % (Manual) Metamyelocytes % Myelocytes % Promyelocytes % Blast Cells % Nucleated RBC % Seg Neutrophils # Man Band Neutrophils # Lymphocytes # (Manual) Abs React Lymphs (Man) Monocytes # (Manual) Eosinophils # (Manual) Basophils # (Manual) Metamyelocytes # Myelocytes # Promyelocytes # Blast Cells # WBC Morphology Hypersegmented Neuts Hyposegmented Neuts Hypogranular Neuts Smudge Cells Toxic Granulation Toxic Vacuolation Dohle Bodies Pelger-Huet Anomaly Mary Rods Platelet Estimate Clumped Platelets Plt Clumps, EDTA Large Platelets Giant Platelets Platelet Satelliting Plt Morphology Comment RBC Morphology Dimorphic RBCs Polychromasia Hypochromasia Poikilocytosis Anisocytosis Microcytosis Macrocytosis Spherocytes Pappenheimer Bodies Sickle Cells Target Cells Tear Drop Cells Ovalocytes Helmet Cells [place] Bodies Terry Rings Jerri Cells Bite Cells Crenated Cell Elliptocytes Acanthocytes (Spur) Rouleaux Hemoglobin C Crystals Schistocytes Malaria parasites Michael Bodies Hem Pathologist Commnt PT INR APTT Fibrinogen D-Dimer POC ABG pH POC ABG pCO2 POC ABG pO2 POC ABG HCO3 POC ABG Total CO2 POC ABG O2 Sat POC ABG Base Excess FiO2 Sodium 150 H Potassium 3.3 L D Chloride 111.4 H Carbon Dioxide 21 L D Anion Gap 21 BUN 22 H Creatinine 2.6 H Estimated GFR 24 BUN/Creatinine Ratio 8.46 Glucose 23 L* POC Glucose 89 Calcium 8.4 D Phosphorus Total Bilirubin 1.40 H Direct Bilirubin 0.9 H Indirect Bilirubin 0.5 AST 94 H ALT 142 H Alkaline Phosphatase 249 H Lactate Dehydrogenase Total Protein 4.6 L D Albumin 2.1 L Albumin/Globulin Ratio 0.8 Blood Type Antibody Screen ISAIAH Antibody Screen Crossmatch 12/07/16 12/07/16 12/08/16 23:31 23:54 00:35 WBC RBC Hgb Hct MCV MCH MCHC RDW Plt Count Add Manual Diff Total Counted Seg Neuts % (Manual) Band Neutrophils % Lymphocytes % (Manual) Reactive Lymphs % (Man) Monocytes % (Manual) Eosinophils % (Manual) Basophils % (Manual) Metamyelocytes % Myelocytes % Promyelocytes % Blast Cells % Nucleated RBC % Seg Neutrophils # Man Band Neutrophils # Lymphocytes # (Manual) Abs React Lymphs (Man) Monocytes # (Manual) Eosinophils # (Manual) Basophils # (Manual) Metamyelocytes # Myelocytes # Promyelocytes # Blast Cells # WBC Morphology Hypersegmented Neuts Hyposegmented Neuts Hypogranular Neuts Smudge Cells Toxic Granulation Toxic Vacuolation Dohle Bodies Pelger-Huet Anomaly Mary Rods Platelet Estimate Clumped Platelets Plt Clumps, EDTA Large Platelets Giant Platelets Platelet Satelliting Plt Morphology Comment RBC Morphology Dimorphic RBCs Polychromasia Hypochromasia Poikilocytosis Anisocytosis Microcytosis Macrocytosis Spherocytes Pappenheimer Bodies Sickle Cells Target Cells Tear Drop Cells Ovalocytes Helmet Cells [place] Bodies Terry Rings [place] Cells Bite Cells Crenated Cell Elliptocytes Acanthocytes (Spur) Rouleaux Hemoglobin C Crystals Schistocytes Malaria parasites Michael Bodies Hem Pathologist Commnt PT INR APTT Fibrinogen D-Dimer POC ABG pH POC ABG pCO2 POC ABG pO2 POC ABG HCO3 POC ABG Total CO2 POC ABG O2 Sat POC ABG Base Excess FiO2 Sodium Potassium Chloride Carbon Dioxide Anion Gap BUN Creatinine Estimated GFR BUN/Creatinine Ratio Glucose POC Glucose 42 L 79 95 Calcium Phosphorus Total Bilirubin Direct Bilirubin Indirect Bilirubin AST ALT Alkaline Phosphatase Lactate Dehydrogenase Total Protein Albumin Albumin/Globulin Ratio Blood Type Antibody Screen ISAIAH Antibody Screen Crossmatch 12/08/16 12/08/16 12/08/16 01:38 02:29 04:43 WBC RBC Hgb Hct MCV MCH MCHC RDW Plt Count Add Manual Diff Total Counted Seg Neuts % (Manual) Band Neutrophils % Lymphocytes % (Manual) Reactive Lymphs % (Man) Monocytes % (Manual) Eosinophils % (Manual) Basophils % (Manual) Metamyelocytes % Myelocytes % Promyelocytes % Blast Cells % Nucleated RBC % Seg Neutrophils # Man Band Neutrophils # Lymphocytes # (Manual) Abs React Lymphs (Man) Monocytes # (Manual) Eosinophils # (Manual) Basophils # (Manual) Metamyelocytes # Myelocytes # Promyelocytes # Blast Cells # WBC Morphology Hypersegmented Neuts Hyposegmented Neuts Hypogranular Neuts Smudge Cells Toxic Granulation Toxic Vacuolation Dohle Bodies Pelger-Huet Anomaly Mary Rods Platelet Estimate Clumped Platelets Plt Clumps, EDTA Large Platelets Giant Platelets Platelet Satelliting Plt Morphology Comment RBC Morphology Dimorphic RBCs Polychromasia Hypochromasia Poikilocytosis Anisocytosis Microcytosis Macrocytosis Spherocytes Pappenheimer Bodies Sickle Cells Target Cells Tear Drop Cells Ovalocytes Helmet Cells [place] Bodies Terry Rings [place] Cells Bite Cells Crenated Cell Elliptocytes Acanthocytes (Spur) Rouleaux Hemoglobin C Crystals Schistocytes Malaria parasites Michael Bodies Hem Pathologist Commnt PT INR APTT Fibrinogen D-Dimer POC ABG pH 7.586 H POC ABG pCO2 17.7 L POC ABG pO2 150 H POC ABG HCO3 16.9 POC ABG Total CO2 17 POC ABG O2 Sat 100 POC ABG Base Excess -5 FiO2 30 Sodium Potassium Chloride Carbon Dioxide Anion Gap BUN Creatinine Estimated GFR BUN/Creatinine Ratio Glucose POC Glucose 80 81 Calcium Phosphorus Total Bilirubin Direct Bilirubin Indirect Bilirubin AST ALT Alkaline Phosphatase Lactate Dehydrogenase Total Protein Albumin Albumin/Globulin Ratio Blood Type Antibody Screen ISAIAH Antibody Screen Crossmatch 12/08/16 12/08/16 12/08/16 04:50 04:50 04:59 WBC 5.2 RBC 2.35 L Hgb 6.6 L Hct 20.1 L MCV 86 MCH 28 MCHC 33 RDW 17.8 H Plt Count 48 L Add Manual Diff Complete Total Counted 100 Seg Neuts % (Manual) 70.0 Band Neutrophils % 12.0 Lymphocytes % (Manual) 18.0 Reactive Lymphs % (Man) 0 Monocytes % (Manual) 0 Eosinophils % (Manual) 0 Basophils % (Manual) 0 Metamyelocytes % 0 Myelocytes % 0 Promyelocytes % 0 Blast Cells % 0 Nucleated RBC % Not Reportable Seg Neutrophils # Man 3.6 Band Neutrophils # 0.6 Lymphocytes # (Manual) 0.9 L Abs React Lymphs (Man) 0.0 Monocytes # (Manual) 0.0 Eosinophils # (Manual) 0.0 Basophils # (Manual) 0.0 Metamyelocytes # 0.0 Myelocytes # 0.0 Promyelocytes # 0.0 Blast Cells # 0.0 WBC Morphology Not Reportable Hypersegmented Neuts Not Reportable Hyposegmented Neuts Not Reportable Hypogranular Neuts Not Reportable Smudge Cells Not Reportable Toxic Granulation Not Reportable Toxic Vacuolation Not Reportable Dohle Bodies 1+ Pelger-Huet Anomaly Not Reportable Mary Rods Not Reportable Platelet Estimate Consistent w auto Clumped Platelets Not Reportable Plt Clumps, EDTA Not Reportable Large Platelets Not Reportable Giant Platelets Not Reportable Platelet Satelliting Not Reportable Plt Morphology Comment Not Reportable RBC Morphology Not Reportable Dimorphic RBCs Not Reportable Polychromasia Not Reportable Hypochromasia Not Reportable Poikilocytosis 2+ Anisocytosis 1+ Microcytosis Not Reportable Macrocytosis Not Reportable Spherocytes Not Reportable Pappenheimer Bodies Not Reportable Sickle Cells Not Reportable Target Cells Few Tear Drop Cells Not Reportable Ovalocytes Not Reportable Helmet Cells Not Reportable [place] Bodies Not Reportable Terry Rings Not Reportable Jerri Cells 2+ Bite Cells Not Reportable Crenated Cell Not Reportable Elliptocytes Not Reportable Acanthocytes (Spur) 1+ Rouleaux Not Reportable Hemoglobin C Crystals Not Reportable Schistocytes Not Reportable Malaria parasites Not Reportable Michael Bodies Not Reportable Hem Pathologist Commnt No PT INR APTT Fibrinogen D-Dimer POC ABG pH POC ABG pCO2 POC ABG pO2 POC ABG HCO3 POC ABG Total CO2 POC ABG O2 Sat POC ABG Base Excess FiO2 Sodium 149 H Potassium 3.2 L Chloride 111.8 H Carbon Dioxide 17 L Anion Gap 23 BUN 26 H Creatinine 3.4 H Estimated GFR 18 BUN/Creatinine Ratio 7.64 Glucose 163 H POC Glucose 204 H Calcium 7.7 L Phosphorus 2.40 L D Total Bilirubin Direct Bilirubin Indirect Bilirubin AST ALT Alkaline Phosphatase Lactate Dehydrogenase Total Protein Albumin Albumin/Globulin Ratio Blood Type Antibody Screen ISAIAH Antibody Screen Crossmatch 12/08/16 12/08/16 12/08/16 06:54 08:04 08:46 WBC RBC Hgb Hct MCV MCH MCHC RDW Plt Count Add Manual Diff Total Counted Seg Neuts % (Manual) Band Neutrophils % Lymphocytes % (Manual) Reactive Lymphs % (Man) Monocytes % (Manual) Eosinophils % (Manual) Basophils % (Manual) Metamyelocytes % Myelocytes % Promyelocytes % Blast Cells % Nucleated RBC % Seg Neutrophils # Man Band Neutrophils # Lymphocytes # (Manual) Abs React Lymphs (Man) Monocytes # (Manual) Eosinophils # (Manual) Basophils # (Manual) Metamyelocytes # Myelocytes # Promyelocytes # Blast Cells # WBC Morphology Hypersegmented Neuts Hyposegmented Neuts Hypogranular Neuts Smudge Cells Toxic Granulation Toxic Vacuolation Dohle Bodies Pelger-Huet Anomaly Mary Rods Platelet Estimate Clumped Platelets Plt Clumps, EDTA Large Platelets Giant Platelets Platelet Satelliting Plt Morphology Comment RBC Morphology Dimorphic RBCs Polychromasia Hypochromasia Poikilocytosis Anisocytosis Microcytosis Macrocytosis Spherocytes Pappenheimer Bodies Sickle Cells Target Cells Tear Drop Cells Ovalocytes Helmet Cells [place] Bodies Terry Rings [place] Cells Bite Cells Crenated Cell Elliptocytes Acanthocytes (Spur) Rouleaux Hemoglobin C Crystals Schistocytes Malaria parasites Michael Bodies Hem Pathologist Commnt PT INR APTT Fibrinogen D-Dimer POC ABG pH POC ABG pCO2 POC ABG pO2 POC ABG HCO3 POC ABG Total CO2 POC ABG O2 Sat POC ABG Base Excess FiO2 Sodium 147 H Potassium 2.9 L* Chloride 110.6 H Carbon Dioxide 17 L Anion Gap 22 BUN 28 H Creatinine 3.6 H Estimated GFR 16 BUN/Creatinine Ratio 7.77 Glucose 127 H POC Glucose 203 H 205 H Calcium 7.3 L Phosphorus Total Bilirubin Direct Bilirubin Indirect Bilirubin AST ALT Alkaline Phosphatase Lactate Dehydrogenase Total Protein Albumin Albumin/Globulin Ratio Blood Type Antibody Screen ISAIAH Antibody Screen Crossmatch 12/08/16 12/08/16 12/08/16 08:46 19:00 19:00 WBC RBC Hgb Hct MCV MCH MCHC RDW Plt Count Add Manual Diff Total Counted Seg Neuts % (Manual) Band Neutrophils % Lymphocytes % (Manual) Reactive Lymphs % (Man) Monocytes % (Manual) Eosinophils % (Manual) Basophils % (Manual) Metamyelocytes % Myelocytes % Promyelocytes % Blast Cells % Nucleated RBC % Seg Neutrophils # Man Band Neutrophils # Lymphocytes # (Manual) Abs React Lymphs (Man) Monocytes # (Manual) Eosinophils # (Manual) Basophils # (Manual) Metamyelocytes # Myelocytes # Promyelocytes # Blast Cells # WBC Morphology Hypersegmented Neuts Hyposegmented Neuts Hypogranular Neuts Smudge Cells Toxic Granulation Toxic Vacuolation Dohle Bodies Pelger-Huet Anomaly Mary Rods Platelet Estimate Clumped Platelets Plt Clumps, EDTA Large Platelets Giant Platelets Platelet Satelliting Plt Morphology Comment RBC Morphology Dimorphic RBCs Polychromasia Hypochromasia Poikilocytosis Anisocytosis Microcytosis Macrocytosis Spherocytes Pappenheimer Bodies Sickle Cells Target Cells Tear Drop Cells Ovalocytes Helmet Cells [place] Bodies Terry Rings Jerri Cells Bite Cells Crenated Cell Elliptocytes Acanthocytes (Spur) Rouleaux Hemoglobin C Crystals Schistocytes Malaria parasites Michael Bodies Hem Pathologist Commnt PT 15.3 H INR 1.22 H APTT 36.2 Fibrinogen 563 H D-Dimer 5507.36 H POC ABG pH POC ABG pCO2 POC ABG pO2 POC ABG HCO3 POC ABG Total CO2 POC ABG O2 Sat POC ABG Base Excess FiO2 Sodium 141 Potassium 3.8 D Chloride 106.5 Carbon Dioxide 21 L Anion Gap 17 BUN 12 Creatinine 1.7 H D Estimated GFR 39 BUN/Creatinine Ratio 7.05 Glucose 155 H POC Glucose Calcium 9.6 D Phosphorus Total Bilirubin Direct Bilirubin Indirect Bilirubin AST ALT Alkaline Phosphatase Lactate Dehydrogenase Total Protein Albumin Albumin/Globulin Ratio Blood Type O POSITIVE Antibody Screen TNR ISAIAH Antibody Screen Negative Crossmatch See Detail 12/08/16 12/08/16 19:00 19:00 WBC 7.6 RBC 2.76 L Hgb 7.8 L Hct 23.7 L MCV 86 MCH 28 MCHC 33 RDW 17.0 H Plt Count 38 L Add Manual Diff Total Counted Seg Neuts % (Manual) Band Neutrophils % Lymphocytes % (Manual) Reactive Lymphs % (Man) Monocytes % (Manual) Eosinophils % (Manual) Basophils % (Manual) Metamyelocytes % Myelocytes % Promyelocytes % Blast Cells % Nucleated RBC % Seg Neutrophils # Man Band Neutrophils # Lymphocytes # (Manual) Abs React Lymphs (Man) Monocytes # (Manual) Eosinophils # (Manual) Basophils # (Manual) Metamyelocytes # Myelocytes # Promyelocytes # Blast Cells # WBC Morphology Hypersegmented Neuts Hyposegmented Neuts Hypogranular Neuts Smudge Cells Toxic Granulation Toxic Vacuolation Dohle Bodies Pelger-Huet Anomaly Mary Rods Platelet Estimate Clumped Platelets Plt Clumps, EDTA Large Platelets Giant Platelets Platelet Satelliting Plt Morphology Comment RBC Morphology Dimorphic RBCs Polychromasia Hypochromasia Poikilocytosis Anisocytosis Microcytosis Macrocytosis Spherocytes Pappenheimer Bodies Sickle Cells Target Cells Tear Drop Cells Ovalocytes Helmet Cells [place] Bodies Terry Rings Jerri Cells Bite Cells Crenated Cell Elliptocytes Acanthocytes (Spur) Rouleaux Hemoglobin C Crystals Schistocytes Malaria parasites Michael Bodies Hem Pathologist Commnt PT INR APTT Fibrinogen D-Dimer POC ABG pH POC ABG pCO2 POC ABG pO2 POC ABG HCO3 POC ABG Total CO2 POC ABG O2 Sat POC ABG Base Excess FiO2 Sodium Potassium Chloride Carbon Dioxide Anion Gap BUN Creatinine Estimated GFR BUN/Creatinine Ratio Glucose POC Glucose Calcium Phosphorus Total Bilirubin Direct Bilirubin Indirect Bilirubin AST ALT Alkaline Phosphatase Lactate Dehydrogenase 382 H Total Protein Albumin Albumin/Globulin Ratio Blood Type Antibody Screen ISAIAH Antibody Screen Crossmatch Assessment and Plan Anemia & thrombocytopenia: Given her AMS, fevers, ARF, I was concerned for TTP. Examination of her smear does not show significant schistocytes however and is not consistent with TTP. She is low risk also for HIT by the 4 T score. Cytopenias likely due to sepsis , antibiotics, myelosuppression. Will order additional anemia labs. Recommend HIV test. OK to transfuse as needed. Recommend additional unit of PRBC tonight given history of sepsis and troponinemia.
[2016-12-08 23:41] LABS: ISTAT Base Excess -4; ISTAT HCO3 19.6; ISTAT PCO2 25.2 (35-45); ISTAT PH 7.498 (7.35-7.45); ISTAT PO2 137 (80-105); ISTAT SO2 99; ISTAT TCO2 20
[2016-12-09] MEDS: NOVOLOG SUB-Q SCH ×4 (02:12→17:03)
[2016-12-09] MEDS: REGLAN IV SCH ×3 (02:13→17:03)
[2016-12-09] MEDS: ZOSYN/NS 2.25 GM/50ML 2.25 GM/50 ML BAG IV SCH (05:44)
[2016-12-09 06:18] LABS: Hematocrit 25.3 % (30.3-42.9); Hemoglobin 8.4 gm/dl (10.1-14.3); Mean Corpuscular HGB Conc 33 % (30-34); Mean Corpuscular Hemoglobin 29 pg (28-32); Mean Corpuscular Volume 87 fl (79-97); Red Blood Count 2.92 M/mm3 (3.65-5.03); Red Cell Distribution Width 16.9 % (13.2-15.2); White Blood Count 11.3 K/mm3 (4.5-11.0)
[2016-12-09 06:24] LABS: Platelet Count 31 K/mm3 (140-440)
[2016-12-09 06:45] LABS: BUN/Creatinine Ratio 7.6; Calcium 9.2 mg/dL (8.4-10.2); Chloride 110.2 mmol/L (98-107); Potassium 3.9 mmol/L (3.6-5.0)
[2016-12-09 07:29] LABS: Basophils % (Manual) 0 % (0.0-1.8); Blastocytes % (Manual) 0 %
[2016-12-09 07:30] LABS: Anisocytosis 1+; Microcytosis 1+
[2016-12-09 07:31] LABS: Diff Status Complete; Platelet Estimate Appears Decreased; Target Cells 1+; Toxic Granulation Rare
--- NOTE | 2016-12-09 07:44 | XRay Report ---
AP chest History: Followup respiratory failure. Findings: Right upper lobe opacity remains unchanged over multiple previous exams. The left lung is generally clear other than segmental atelectasis at the left lung base. No pleural effusion or pneumothorax. Heart and mediastinal structures remain within normal limits. Lines and support devices are unchanged. Impression: No change.
--- NOTE | 2016-12-09 09:36 | Progress Note ---
Assessment and Plan Acute respiratory failure vent weaning per pulmonary Cardiac arrest PEA arrest-->V. fib/?torsades-->shocked twice, received amiodarone 300 mg amiodarone gtt discontinued Echo 11/2016: EF 40-45%, repeat echo EF 40-45% Abnormal EKG/ST elevation Given pt.'s condition, resolution of ST elevation and recent subarachnoid bleed pt. not a candidate for cardiac cath Hypotension pressors weaned off Nstemi type 2 Cardiomyopathy EF 40-45% consider beta zoila if BP can tolerate no ACEI/ARB due to CKD DKA Hyperkalemia Acute on chronic renal failure Anemia Recent subarachnoid hemorrhage Altered mental status The patient has been seen in conjunction with Dr. Mora who agrees with the assessment and plan of care. Subjective Date of service: 12/09/16 Principal diagnosis: Severe Sepsis; DKA, cardiac arrest Interval history: The patient remains intubated but is awake and following commands. Sinus rhythm on the monitor. Levophed weaned off. Objective Last Vital Signs Temp 98.2 F 12/09/16 08:00 Pulse 105 H 12/09/16 08:10 Resp 10 L 12/09/16 08:10 BP 105/71 12/09/16 08:10 Pulse Ox 100 12/09/16 08:10 - Physical Examination General: No Apparent Distress (intubated, awake) HEENT: Positive: Normocephaly Neck: Positive: neck supple, trachea midline Cardiac: Positive: Reg Rate and Rhythm, S1/S2 Lungs: Positive: clear to auscultation Neuro: Positive: Other (intubated, follows commands) Abdomen: Positive: Soft Skin: Negative: Rash Extremities: Present: normal. Absent: edema - Labs and Meds Cardiac Enzymes 12/08/16 Range/Units 19:00 Lactate Dehydrogenase 382 H (91-180) units/L Coagulation 12/08/16 Range/Units 19:00 PT 15.3 H (12.2-14.9) Sec. INR 1.22 H (0.87-1.13) APTT 36.2 (24.2-36.6) Sec. CBC 12/08/16 12/09/16 Range/Units 19:00 Unknown WBC 7.6 11.3 H (4.5-11.0) K/mm3 RBC 2.76 L 2.92 L (3.65-5.03) M/mm3 Hgb 7.8 L 8.4 L (10.1-14.3) gm/dl Hct 23.7 L 25.3 L (30.3-42.9) % Plt Count 38 L 31 L (140-440) K/mm3 Comprehensive Metabolic Panel 12/08/16 12/08/16 12/09/16 Range/Units 08:46 19:00 06:00 Sodium 147 H 141 145 (137-145) mmol/L Potassium 2.9 L* 3.8 D 3.9 (3.6-5.0) mmol/L Chloride 110.6 H 106.5 110.2 H (98-107) mmol/L Carbon Dioxide 17 L 21 L 18 L (22-30) mmol/L BUN 28 H 12 19 H (7-17) mg/dL Creatinine 3.6 H 1.7 H D 2.5 H (0.7-1.2) mg/dL Glucose 127 H 155 H 105 H (65-100) mg/dL Calcium 7.3 L 9.6 D 9.2 (8.4-10.2) mg/dL - Imaging and Cardiology Echo: report reviewed (11/2016: EF 40-45% repeat echo EF 40-45%) - Telemetry EKG Rhythm: Sinus Rhythm
[2016-12-09] MEDS: PEPCID PO SCH (10:22)
[2016-12-09] MEDS ORDERED: NACL 0.9% 500 ML 500 ML IV ONE (11:00)
--- NOTE | 2016-12-09 11:03 | Hem/Onc Progress Note ---
Assessment and Plan - Patient Problems (1) Thrombocytopenia Current Visit: Yes Status: Acute Plan to address problem: Platelets dropping. This is secondary to underlying medical issues. Recent PEA arrest. Amiodarone use. Transfuse platelets as she had recent SAH. Volume is an issue. Please call with questions. Subjective Date of service: 12/09/16 Interval history: Her eyes are open. No bleeding per nursing. Platelets dropping. Objective - Constitutional Vitals: Last Vital Signs Temp 98.2 F 12/09/16 08:00 Pulse 104 H 12/09/16 10:00 Resp 13 12/09/16 10:00 BP 112/76 12/09/16 10:00 Pulse Ox 100 12/09/16 10:00 - EENT Eyes: PERRL ENT: hearing intact Lymph node exam: negative cervical - Neck Neck: supple - Respiratory Respiratory effort: Positive: normal Respiratory: bilateral: CTA - Cardiovascular Rhythm: regular - Labs Lab Results: Laboratory Results - last 24 hr 12/08/16 12/08/16 12/08/16 04:50 08:46 12:36 WBC RBC Hgb Hct MCV MCH MCHC RDW Plt Count Add Manual Diff Complete Total Counted 100 Seg Neuts % (Manual) 70.0 Band Neutrophils % 12.0 Lymphocytes % (Manual) 18.0 Reactive Lymphs % (Man) 0 Monocytes % (Manual) 0 Eosinophils % (Manual) 0 Basophils % (Manual) 0 Metamyelocytes % 0 Myelocytes % 0 Promyelocytes % 0 Blast Cells % 0 Nucleated RBC % Not Reportable Seg Neutrophils # Man 3.6 Band Neutrophils # 0.6 Lymphocytes # (Manual) 0.9 L Abs React Lymphs (Man) 0.0 Monocytes # (Manual) 0.0 Eosinophils # (Manual) 0.0 Basophils # (Manual) 0.0 Metamyelocytes # 0.0 Myelocytes # 0.0 Promyelocytes # 0.0 Blast Cells # 0.0 WBC Morphology Not Reportable Hypersegmented Neuts Not Reportable Hyposegmented Neuts Not Reportable Hypogranular Neuts Not Reportable Smudge Cells Not Reportable Toxic Granulation Not Reportable Toxic Vacuolation Not Reportable Dohle Bodies 1+ Pelger-Huet Anomaly Not Reportable Mary Rods Not Reportable Platelet Estimate Consistent w auto Clumped Platelets Not Reportable Plt Clumps, EDTA Not Reportable Large Platelets Not Reportable Giant Platelets Not Reportable Platelet Satelliting Not Reportable Plt Morphology Comment Not Reportable RBC Morphology Not Reportable Dimorphic RBCs Not Reportable Polychromasia Not Reportable Hypochromasia Not Reportable Poikilocytosis 2+ Anisocytosis 1+ Microcytosis Not Reportable Macrocytosis Not Reportable Spherocytes Not Reportable Pappenheimer Bodies Not Reportable Sickle Cells Not Reportable Target Cells Few Tear Drop Cells Not Reportable Ovalocytes Not Reportable Helmet Cells Not Reportable [place] Bodies Not Reportable [place] Rings Not Reportable Jerri Cells 2+ Bite Cells Not Reportable Crenated Cell Not Reportable Elliptocytes Not Reportable Acanthocytes (Spur) 1+ Rouleaux Not Reportable Hemoglobin C Crystals Not Reportable Schistocytes Not Reportable Malaria parasites Not Reportable Michael Bodies Not Reportable Hem Pathologist Commnt No PT INR APTT Fibrinogen D-Dimer POC ABG pH POC ABG pCO2 POC ABG pO2 POC ABG HCO3 POC ABG Total CO2 POC ABG O2 Sat POC ABG Base Excess FiO2 Sodium Potassium Chloride Carbon Dioxide Anion Gap BUN Creatinine Estimated GFR BUN/Creatinine Ratio Glucose POC Glucose 181 H Calcium Phosphorus Magnesium Lactate Dehydrogenase Blood Type O POSITIVE Antibody Screen TNR ISAIAH Antibody Screen Negative Crossmatch See Detail 12/08/16 12/08/16 12/08/16 16:07 16:56 18:39 WBC RBC Hgb Hct MCV MCH MCHC RDW Plt Count Add Manual Diff Total Counted Seg Neuts % (Manual) Band Neutrophils % Lymphocytes % (Manual) Reactive Lymphs % (Man) Monocytes % (Manual) Eosinophils % (Manual) Basophils % (Manual) Metamyelocytes % Myelocytes % Promyelocytes % Blast Cells % Nucleated RBC % Seg Neutrophils # Man Band Neutrophils # Lymphocytes # (Manual) Abs React Lymphs (Man) Monocytes # (Manual) Eosinophils # (Manual) Basophils # (Manual) Metamyelocytes # Myelocytes # Promyelocytes # Blast Cells # WBC Morphology Hypersegmented Neuts Hyposegmented Neuts Hypogranular Neuts Smudge Cells Toxic Granulation Toxic Vacuolation Dohle Bodies Pelger-Huet Anomaly Mary Rods Platelet Estimate Clumped Platelets Plt Clumps, EDTA Large Platelets Giant Platelets Platelet Satelliting Plt Morphology Comment RBC Morphology Dimorphic RBCs Polychromasia Hypochromasia Poikilocytosis Anisocytosis Microcytosis Macrocytosis Spherocytes Pappenheimer Bodies Sickle Cells Target Cells Tear Drop Cells Ovalocytes Helmet Cells [place] Bodies [place] Rings [place] Cells Bite Cells Crenated Cell Elliptocytes Acanthocytes (Spur) Rouleaux Hemoglobin C Crystals Schistocytes Malaria parasites Michael Bodies Hem Pathologist Commnt PT INR APTT Fibrinogen D-Dimer POC ABG pH POC ABG pCO2 POC ABG pO2 POC ABG HCO3 POC ABG Total CO2 POC ABG O2 Sat POC ABG Base Excess FiO2 Sodium Potassium Chloride Carbon Dioxide Anion Gap BUN Creatinine Estimated GFR BUN/Creatinine Ratio Glucose POC Glucose 87 77 105 Calcium Phosphorus Magnesium Lactate Dehydrogenase Blood Type Antibody Screen ISAIAH Antibody Screen Crossmatch 12/08/16 12/08/16 12/08/16 19:00 19:00 19:00 WBC 7.6 RBC 2.76 L Hgb 7.8 L Hct 23.7 L MCV 86 MCH 28 MCHC 33 RDW 17.0 H Plt Count 38 L Add Manual Diff Total Counted Seg Neuts % (Manual) Band Neutrophils % Lymphocytes % (Manual) Reactive Lymphs % (Man) Monocytes % (Manual) Eosinophils % (Manual) Basophils % (Manual) Metamyelocytes % Myelocytes % Promyelocytes % Blast Cells % Nucleated RBC % Seg Neutrophils # Man Band Neutrophils # Lymphocytes # (Manual) Abs React Lymphs (Man) Monocytes # (Manual) Eosinophils # (Manual) Basophils # (Manual) Metamyelocytes # Myelocytes # Promyelocytes # Blast Cells # WBC Morphology Hypersegmented Neuts Hyposegmented Neuts Hypogranular Neuts Smudge Cells Toxic Granulation Toxic Vacuolation Dohle Bodies Pelger-Huet Anomaly Mary Rods Platelet Estimate Clumped Platelets Plt Clumps, EDTA Large Platelets Giant Platelets Platelet Satelliting Plt Morphology Comment RBC Morphology Dimorphic RBCs Polychromasia Hypochromasia Poikilocytosis Anisocytosis Microcytosis Macrocytosis Spherocytes Pappenheimer Bodies Sickle Cells Target Cells Tear Drop Cells Ovalocytes Helmet Cells [place] Bodies [place] Rings [place] Cells Bite Cells Crenated Cell Elliptocytes Acanthocytes (Spur) Rouleaux Hemoglobin C Crystals Schistocytes Malaria parasites Michael Bodies Hem Pathologist Commnt PT 15.3 H INR 1.22 H APTT 36.2 Fibrinogen 563 H D-Dimer 5507.36 H POC ABG pH POC ABG pCO2 POC ABG pO2 POC ABG HCO3 POC ABG Total CO2 POC ABG O2 Sat POC ABG Base Excess FiO2 Sodium 141 Potassium 3.8 D Chloride 106.5 Carbon Dioxide 21 L Anion Gap 17 BUN 12 Creatinine 1.7 H D Estimated GFR 39 BUN/Creatinine Ratio 7.05 Glucose 155 H POC Glucose Calcium 9.6 D Phosphorus Magnesium Lactate Dehydrogenase Blood Type Antibody Screen ISAIAH Antibody Screen Crossmatch 12/08/16 12/08/16 12/08/16 19:00 23:32 23:44 WBC RBC Hgb Hct MCV MCH MCHC RDW Plt Count Add Manual Diff Total Counted Seg Neuts % (Manual) Band Neutrophils % Lymphocytes % (Manual) Reactive Lymphs % (Man) Monocytes % (Manual) Eosinophils % (Manual) Basophils % (Manual) Metamyelocytes % Myelocytes % Promyelocytes % Blast Cells % Nucleated RBC % Seg Neutrophils # Man Band Neutrophils # Lymphocytes # (Manual) Abs React Lymphs (Man) Monocytes # (Manual) Eosinophils # (Manual) Basophils # (Manual) Metamyelocytes # Myelocytes # Promyelocytes # Blast Cells # WBC Morphology Hypersegmented Neuts Hyposegmented Neuts Hypogranular Neuts Smudge Cells Toxic Granulation Toxic Vacuolation Dohle Bodies Pelger-Huet Anomaly Mary Rods Platelet Estimate Clumped Platelets Plt Clumps, EDTA Large Platelets Giant Platelets Platelet Satelliting Plt Morphology Comment RBC Morphology Dimorphic RBCs Polychromasia Hypochromasia Poikilocytosis Anisocytosis Microcytosis Macrocytosis Spherocytes Pappenheimer Bodies Sickle Cells Target Cells Tear Drop Cells Ovalocytes Helmet Cells [place] Bodies [place] Rings [place] Cells Bite Cells Crenated Cell Elliptocytes Acanthocytes (Spur) Rouleaux Hemoglobin C Crystals Schistocytes Malaria parasites Michael Bodies Hem Pathologist Commnt PT INR APTT Fibrinogen D-Dimer POC ABG pH 7.498 H POC ABG pCO2 25.2 L POC ABG pO2 137 H POC ABG HCO3 19.6 POC ABG Total CO2 20 POC ABG O2 Sat 99 POC ABG Base Excess -4 FiO2 30 Sodium Potassium Chloride Carbon Dioxide Anion Gap BUN Creatinine Estimated GFR BUN/Creatinine Ratio Glucose POC Glucose 311 H Calcium Phosphorus Magnesium Lactate Dehydrogenase 382 H Blood Type Antibody Screen ISAIAH Antibody Screen Crossmatch 12/09/16 12/09/16 12/09/16 05:22 05:36 06:00 WBC RBC Hgb Hct MCV MCH MCHC RDW Plt Count Add Manual Diff Total Counted Seg Neuts % (Manual) Band Neutrophils % Lymphocytes % (Manual) Reactive Lymphs % (Man) Monocytes % (Manual) Eosinophils % (Manual) Basophils % (Manual) Metamyelocytes % Myelocytes % Promyelocytes % Blast Cells % Nucleated RBC % Seg Neutrophils # Man Band Neutrophils # Lymphocytes # (Manual) Abs React Lymphs (Man) Monocytes # (Manual) Eosinophils # (Manual) Basophils # (Manual) Metamyelocytes # Myelocytes # Promyelocytes # Blast Cells # WBC Morphology Hypersegmented Neuts Hyposegmented Neuts Hypogranular Neuts Smudge Cells Toxic Granulation Toxic Vacuolation Dohle Bodies Pelger-Huet Anomaly Mary Rods Platelet Estimate Clumped Platelets Plt Clumps, EDTA Large Platelets Giant Platelets Platelet Satelliting Plt Morphology Comment RBC Morphology Dimorphic RBCs Polychromasia Hypochromasia Poikilocytosis Anisocytosis Microcytosis Macrocytosis Spherocytes Pappenheimer Bodies Sickle Cells Target Cells Tear Drop Cells Ovalocytes Helmet Cells [place] Bodies [place] Rings Jerri Cells Bite Cells Crenated Cell Elliptocytes Acanthocytes (Spur) Rouleaux Hemoglobin C Crystals Schistocytes Malaria parasites Michael Bodies Hem Pathologist Commnt PT INR APTT Fibrinogen D-Dimer POC ABG pH POC ABG pCO2 POC ABG pO2 POC ABG HCO3 POC ABG Total CO2 POC ABG O2 Sat POC ABG Base Excess FiO2 Sodium 145 Potassium 3.9 Chloride 110.2 H Carbon Dioxide 18 L Anion Gap 21 BUN 19 H Creatinine 2.5 H Estimated GFR 25 BUN/Creatinine Ratio 7.60 Glucose 105 H POC Glucose 113 H Calcium 9.2 Phosphorus 2.00 L Magnesium 1.80 Lactate Dehydrogenase Blood Type Antibody Screen ISAIAH Antibody Screen Crossmatch 12/09/16 Unknown WBC 11.3 H RBC 2.92 L Hgb 8.4 L Hct 25.3 L MCV 87 MCH 29 MCHC 33 RDW 16.9 H Plt Count 31 L Add Manual Diff Complete Total Counted 100 Seg Neuts % (Manual) 42.0 Band Neutrophils % 29.0 Lymphocytes % (Manual) 16.0 Reactive Lymphs % (Man) 0 Monocytes % (Manual) 3.0 Eosinophils % (Manual) 2.0 Basophils % (Manual) 0 Metamyelocytes % 2.0 Myelocytes % 6.0 Promyelocytes % 0 Blast Cells % 0 Nucleated RBC % Not Reportable Seg Neutrophils # Man 4.7 Band Neutrophils # 3.3 Lymphocytes # (Manual) 1.8 Abs React Lymphs (Man) 0.0 Monocytes # (Manual) 0.3 Eosinophils # (Manual) 0.2 Basophils # (Manual) 0.0 Metamyelocytes # 0.2 Myelocytes # 0.7 Promyelocytes # 0.0 Blast Cells # 0.0 WBC Morphology Not Reportable Hypersegmented Neuts Not Reportable Hyposegmented Neuts Not Reportable Hypogranular Neuts Not Reportable Smudge Cells Not Reportable Toxic Granulation Rare Toxic Vacuolation Not Reportable Dohle Bodies Not Reportable Pelger-Huet Anomaly Not Reportable Mary Rods Not Reportable Platelet Estimate Appears decreased Clumped Platelets Not Reportable Plt Clumps, EDTA Not Reportable Large Platelets Not Reportable Giant Platelets Not Reportable Platelet Satelliting Not Reportable Plt Morphology Comment Not Reportable RBC Morphology Not Reportable Dimorphic RBCs Not Reportable Polychromasia Not Reportable Hypochromasia Not Reportable Poikilocytosis Not Reportable Anisocytosis 1+ Microcytosis 1+ Macrocytosis Not Reportable Spherocytes Not Reportable Pappenheimer Bodies Not Reportable Sickle Cells Not Reportable Target Cells 1+ Tear Drop Cells Not Reportable Ovalocytes Not Reportable Helmet Cells Not Reportable [place] Bodies Not Reportable [place] Rings Not Reportable Jerri Cells Not Reportable Bite Cells Not Reportable Crenated Cell Not Reportable Elliptocytes Not Reportable Acanthocytes (Spur) Not Reportable Rouleaux Not Reportable Hemoglobin C Crystals Not Reportable Schistocytes Not Reportable Malaria parasites Not Reportable Michael Bodies Not Reportable Hem Pathologist Commnt No PT INR APTT Fibrinogen D-Dimer POC ABG pH POC ABG pCO2 POC ABG pO2 POC ABG HCO3 POC ABG Total CO2 POC ABG O2 Sat POC ABG Base Excess FiO2 Sodium Potassium Chloride Carbon Dioxide Anion Gap BUN Creatinine Estimated GFR BUN/Creatinine Ratio Glucose POC Glucose Calcium Phosphorus Magnesium Lactate Dehydrogenase Blood Type Antibody Screen ISAIAH Antibody Screen Crossmatch
--- NOTE | 2016-12-09 11:27 | Consultation ---
History of Present Illness - Reason for Consult Consult date: 12/09/16 Sepsis; Pneumonia Requesting physician: TEE MIMS - History of Present Illness Ms. Ingram is a 46-year-old woman brought in by ambulance with altered mentation and incoherent speech per her family. She was intubated early with chest radiographic evidence of a RUL consolidation also evidence of a NSTEMI and DKA. She was started on Zosyn monotherapy, which she is still on. She has required hemodialysis with placement of a right femoral vascath. She had a recent Vfib-related PEA arrest. She remains intubated and on pressors with multi -organ system issues. A recent culture of a tracheal aspirate shows a Zosyn- resistant Pseudomonas aeruginosa. ID consultation is requested for further treatment recommendations. Past History Past Medical History: anemia, diabetes, hypertension, hyperlipidemia, renal failure Past Surgical History: No surgical history Social history: no significant social history Family history: no significant family history Medications and Allergies Allergies Allergy/AdvReac Type Severity Reaction Status Date / Time No Known Allergies Allergy Verified 12/03/16 23:01 Home Medications Medication Instructions Recorded Confirmed Last Taken Type Calcium Carbonate [Oscal] 1,250 mg PO BID #60 tablet 11/08/16 12/05/16 Unknown Rx Insulin NPH/Regular [NovoLIN 70/30] 10 unit SUB-Q BIDDIAB 30 Days 11/08/1612/05 Unknown Rx Metoprolol [Lopressor TAB] 12.5 mg PO BID #60 tablet 11/08/16 12/05/16 Unknown Rx Metoprolol [Lopressor TAB] 25 mg PO BID #60 tablet 11/08/16 12/05/16 Unknown Rx Pantoprazole [Protonix TAB] 40 mg PO QDAY #30 tablet 11/08/16 12/05/16 Unknown Rx HumaLOG VIAL See Protocol SQ ACHS PRN 12/04/16 12/04/16 Unknown History Lantus VIAL 12/04/16 Unknown History Active Meds: Active Medications Acetaminophen (Tylenol) 650 mg KS Q6H PRN PRN Reason: for temp greater than 100 Last Admin: 12/06/16 00:06 Dose: 650 mg Lipase/Protease/Amylase (Pancreaze Dr 10,500 Unit) 1 each FEEDTUBE PRN PRN PRN Reason: For Clogged Feeding Tube Last Admin: 12/09/16 10:40 Dose: 1 each Dextrose (D50w (25gm)) 50 ml IV PRN PRN PRN Reason: Hypoglycemia Last Admin: 12/07/16 23:35 Dose: 50 ml Famotidine (Pepcid) 20 mg PO DAILY ULI Last Admin: 12/09/16 10:22 Dose: 20 mg Heparin Sodium (Porcine) (Heparin) 5,000 unit IV CHEKO PRN PRN Reason: hemodialysis Last Admin: 12/07/16 20:34 Dose: 5,000 unit Hydrophilic Ointment (Vaseline Lip Therapy) 1 applic TP Q2HR PRN PRN Reason: Dry Lips Propofol (Diprivan 10 Mg/Ml) 1,000 mg in 100 mls @ 1.872 mls/hr IV TITR ULI; 5 MCG/KG/MIN PRN Reason: Protocol Last Admin: 12/08/16 21:36 Dose: 15 mcg/kg/min, 5.616 mls/hr Norepinephrine 8 mg/ Sodium (Chloride) 250 mls @ 3.75 mls/hr IV TITR ULI; 2 MCG /MIN PRN Reason: Protocol Last Titration: 12/08/16 16:15 Dose: 1 mcg/min, 1.87 mls/hr Fentanyl Citrate (Fentanyl Drip Premix) 2,000 mcg in 100 mls @ 2.72 mls/hr IV TITR ULI; 1 MCG/KG/HR PRN Reason: Protocol Piperacillin Sod/Tazobactam Sod (Zosyn/Ns 2.25 Gm/50ml) 2.25 gm in 50 mls @ 100 mls/hr IV Q8HR ULI PRN Reason: Protocol Last Admin: 12/09/16 05:44 Dose: 100 mls/hr Vasopressin 20 unit/ Sodium (Chloride) 101 mls @ 9.09 mls/hr IV TITR ULI; 0.03 UNITS/MIN PRN Reason: Protocol Sodium Chloride (Nacl 0.9%) 100 mls @ 999 mls/hr IV CHEKO PRN PRN Reason: Hypotension Insulin Aspart (Novolog) 0 units SUB-Q Q6HR ULI PRN Reason: Protocol Last Admin: 12/09/16 05:45 Dose: Not Given Metoclopramide HCl (Reglan) 5 mg IV Q8H ULI Last Admin: 12/09/16 09:15 Dose: 5 mg Morphine Sulfate (Morphine) 2 mg IV Q1HR PRN PRN Reason: Pain, Moderate (4-6) Last Admin: 12/06/16 22:58 Dose: 2 mg Multi-Ingred Cream/Lotion/Oil/Oint (Artificial Tears Ophth Oint) 1 applic OU Q4HR PRN PRN Reason: Dry Eye(s) Simple Syrup (Simple Syrup) 15 ml FEEDTUBE PRN PRN PRN Reason: Hypoglycemia Simple Syrup (Simple Syrup) 30 ml FEEDTUBE PRN PRN PRN Reason: Hypoglycemia Last Admin: 12/08/16 02:32 Dose: 30 ml Sodium Bicarbonate (Sodium Bicarbonate) 325 mg FEEDTUBE PRN PRN PRN Reason: For Clogged Feeding Tube Last Admin: 12/09/16 10:40 Dose: 325 mg Review of Systems ROS unobtainable: due to endotracheal tube Physical Examination - Constitutional Vitals: Vital Signs Temp Pulse Resp BP Pulse Ox 98.2 F 104 H 13 112/76 100 12/09/16 08:00 12/09/16 10:00 12/09/16 10:00 12/09/16 10:00 12/09/16 10:00 Temperature -Last 24 Hours Temperature 98.2 F Temperature 99.6 F Temperature 99.6 F Temperature 99.6 F Temperature 99.6 F Temperature 99.6 F Temperature 100.0 F Temperature 100.6 F Temperature 100.6 F Temperature 100.5 F Temperature 98.7 F Temperature 98.4 F Temperature 98.0 F Temperature 98.3 F Temperature 98.4 F General appearance: Present: other (intubated, awake, in no apparent distress) - EENT Eyes: Absent: scleral icterus, conjunctival injection ENT: other (NG and ET tubes in place) - Neck Neck: Present: supple (turns neck to track staff entering room) - Respiratory Respiratory effort: normal Respiratory: bilateral: CTA, negative: rales, rhonchi - Cardiovascular Rhythm: regular (tachycardic to 110s) Heart Sounds: Present: S1 & S2 - Extremities Extremities: No edema - Abdominal General gastrointestinal: Present: soft, non-distended, normal bowel sounds Female genitourinary: Present: other (Short with yellow urine) - Rectal Rectal Exam: other (rectal tube with loose, light brown stool) - Integumentary Integumentary: Absent: jaundice, rash - Additional findings Additional findings: PICC left arm without surrounding inflammation Results - Labs CBC & Chem 7: 12/09/16 Unknown 12/09/16 06:00 Labs: Abnormal lab results 12/08/16 12/08/16 12/08/16 Range/Units 04:50 08:46 12:36 WBC (4.5-11.0) K/mm3 RBC (3.65-5.03) M/mm3 Hgb (10.1-14.3) gm/dl Hct (30.3-42.9) % RDW (13.2-15.2) % Plt Count (140-440) K/mm3 Lymphocytes # (Manual) 0.9 L (1.2-5.4) K/mm3 PT (12.2-14.9) Sec. INR (0.87-1.13) Fibrinogen (211-480) mg/dl D-Dimer (0-234) ng/mlDDU POC ABG pH (7.35-7.45) POC ABG pCO2 (35-45) POC ABG pO2 (80-105) Chloride (98-107) mmol/L Carbon Dioxide (22-30) mmol/L BUN (7-17) mg/dL Creatinine (0.7-1.2) mg/dL Glucose (65-100) mg/dL POC Glucose 181 H (70-105) Phosphorus (2.5-4.5) mg/dL Lactate Dehydrogenase (91-180) units/L Crossmatch See Detail 12/08/16 12/08/16 12/08/16 Range/Units 19:00 19:00 19:00 WBC (4.5-11.0) K/mm3 RBC 2.76 L (3.65-5.03) M/mm3 Hgb 7.8 L (10.1-14.3) gm/dl Hct 23.7 L (30.3-42.9) % RDW 17.0 H (13.2-15.2) % Plt Count 38 L (140-440) K/mm3 Lymphocytes # (Manual) (1.2-5.4) K/mm3 PT 15.3 H (12.2-14.9) Sec. INR 1.22 H (0.87-1.13) Fibrinogen 563 H (211-480) mg/dl D-Dimer 5507.36 H (0-234) ng/mlDDU POC ABG pH (7.35-7.45) POC ABG pCO2 (35-45) POC ABG pO2 (80-105) Chloride (98-107) mmol/L Carbon Dioxide 21 L (22-30) mmol/L BUN (7-17) mg/dL Creatinine 1.7 H D (0.7-1.2) mg/dL Glucose 155 H (65-100) mg/dL POC Glucose (70-105) Phosphorus (2.5-4.5) mg/dL Lactate Dehydrogenase (91-180) units/L Crossmatch 12/08/16 12/08/16 12/08/16 Range/Units 19:00 23:32 23:44 WBC (4.5-11.0) K/mm3 RBC (3.65-5.03) M/mm3 Hgb (10.1-14.3) gm/dl Hct (30.3-42.9) % RDW (13.2-15.2) % Plt Count (140-440) K/mm3 Lymphocytes # (Manual) (1.2-5.4) K/mm3 PT (12.2-14.9) Sec. INR (0.87-1.13) Fibrinogen (211-480) mg/dl D-Dimer (0-234) ng/mlDDU POC ABG pH 7.498 H (7.35-7.45) POC ABG pCO2 25.2 L (35-45) POC ABG pO2 137 H (80-105) Chloride (98-107) mmol/L Carbon Dioxide (22-30) mmol/L BUN (7-17) mg/dL Creatinine (0.7-1.2) mg/dL Glucose (65-100) mg/dL POC Glucose 311 H (70-105) Phosphorus (2.5-4.5) mg/dL Lactate Dehydrogenase 382 H (91-180) units/L Crossmatch 12/09/16 12/09/16 12/09/16 Range/Units 05:22 06:00 Unknown WBC 11.3 H (4.5-11.0) K/mm3 RBC 2.92 L (3.65-5.03) M/mm3 Hgb 8.4 L (10.1-14.3) gm/dl Hct 25.3 L (30.3-42.9) % RDW 16.9 H (13.2-15.2) % Plt Count 31 L (140-440) K/mm3 Lymphocytes # (Manual) (1.2-5.4) K/mm3 PT (12.2-14.9) Sec. INR (0.87-1.13) Fibrinogen (211-480) mg/dl D-Dimer (0-234) ng/mlDDU POC ABG pH (7.35-7.45) POC ABG pCO2 (35-45) POC ABG pO2 (80-105) Chloride 110.2 H (98-107) mmol/L Carbon Dioxide 18 L (22-30) mmol/L BUN 19 H (7-17) mg/dL Creatinine 2.5 H (0.7-1.2) mg/dL Glucose 105 H (65-100) mg/dL POC Glucose 113 H (70-105) Phosphorus 2.00 L (2.5-4.5) mg/dL Lactate Dehydrogenase (91-180) units/L Crossmatch Microbiology 12/06/16 21:55 Tracheal Aspirate Sputum Culture - Preliminary Pseudomonas Aeruginosa 12/05/16 05:19 Peripheral/Venous Blood Culture - Preliminary NO GROWTH AFTER 4 DAYS 12/05/16 04:44 Peripheral/Venous Blood Culture - Preliminary NO GROWTH AFTER 4 DAYS 12/03/16 23:20 Peripheral/Venous Blood Culture - Final NO GROWTH AFTER 5 DAYS 12/04/16 01:05 Tracheal Aspirate Sputum Culture - Final 12/03/16 23:20 Peripheral/Venous Blood Culture - Preliminary Coag Negative Staphylococcus - Imaging and Cardiology Chest x-ray: report reviewed (RUL consolidation, unchanged) Abdominal x-ray: report reviewed (NG tube curled in fundus of stomach) Assessment and Plan - Patient Problems (1) Severe sepsis Current Visit: Yes Status: Acute Plan to address problem: Apparent pneumonia etiology. Adjusting antibiotic coverage to Meropenem. Will screen for HIV and chronic hepatitides. (2) Acute respiratory failure with hypoxemia Current Visit: No Status: Acute Plan to address problem: Per above with adjustment of antibiotics to Meropenem. Follow clinically. (3) Acute renal failure Current Visit: No Status: Acute Qualifiers: Acute renal failure type: A Plan to address problem: Antibiotics are renally adjusted.
[2016-12-09 12:12] LABS: ISTAT Base Excess TNR; ISTAT HCO3 TNR; ISTAT PCO2 TNR (35-45); ISTAT PH TNR (7.35-7.45); ISTAT PO2 TNR (80-105)
[2016-12-09 12:13] LABS: ISTAT SO2 TNR; ISTAT TCO2 TNR
--- NOTE | 2016-12-09 12:28 | Progress Note ---
Assessment and Plan - Patient Problems (1) Severe sepsis Current Visit: Yes Status: Acute Plan to address problem: (RUL pneumonia may have been present prior and evident post re-hydration but also may represent aspirate) - continue wean levophed for MAP > 60mmHg - continue empiric AB's and follow cultures (will stop zosyn after BC's -ve and final) - continue to trend lactate and CRP as necessary - s/p PICC line - send new tracheal aspirate for C&S - blood cultures growing coag -ve staph in 1 of 4 bottles and likely contaminant - discontinued vancomycin empirically in setting of ASHELY - hopefully HD/UF improves clinical picture also - continue to follow clinically (2) Cardiac arrest Current Visit: Yes Status: Acute Plan to address problem: - achieved ROSC and no recurrence - avoid severe acidosis and continue to treat sepsis and azotemia ..35' CCT (3) Acute renal failure Current Visit: No Status: Acute Qualifiers: Acute renal failure type: A Plan to address problem: - continue free water flushes for hypernatremia - per nephrology otherwise - HD/UF beginning today - input appreciated - replaced potassium (4) Acute respiratory failure with hypoxemia Current Visit: No Status: Acute Plan to address problem: - acid-base balance improved - continue bronchodilators and pulmonary toilet - continuing aspiration precautions and addressed VAP bundle - continue to wean oxygen for sats > 94% - tolerating PSV acceptably and will give a trial of extubation to prn BIPAP (5) DKA (diabetic ketoacidoses) Current Visit: Yes Status: Acute Qualifiers: Diabetes mellitus type: type 1 Diabetes mellitus complication detail: without coma Diabetes mellitus continuous churn buttermaker insulin use: D Qualified Code(s): E10.10 - Type 1 diabetes mellitus with ketoacidosis without coma Plan to address problem: - off IV insulin - enteral nutrition started and tolerating well so far - continue SSI (6) Anemia Current Visit: Yes Status: Acute Qualifiers: Anemia type: A Iron deficiency anemia type: I Vitamin B12 deficiency anemia type: V Folate deficiency anemia type: F Bone marrow failure anemia type: B Hemolytic anemia type: H Other causes of anemia: O Chronic kidney disease stage: C Plan to address problem: - received 1 unit PRBC - follow prn - continue to treat azotemia (7) Discharge planning issues Current Visit: No Status: Acute Plan to address problem: - improving ...she remains critically ill on life sustaining interventions including MVS and at high risk for further deterioration including .....35' CCT Subjective Date of service: 12/09/16 Principal diagnosis: Severe Sepsis; DKA, cardiac arrest Interval history: Seen and examined at bedside; 24 hour events reviewed; nursing and respiratory care staff consulted; no adverse overnight events reported to me; tolerating PSV well; secretions moderate but mostly oral and not from ETT; follows commands appropriately Objective Vital Signs - 12hr 12/09/16 12/09/16 12/09/16 00:30 01:00 01:30 Temperature 99.6 F 99.6 F 99.6 F Pulse Rate 108 H 106 H 106 H Pulse Rate [ From Monitor] Respiratory 20 20 19 Rate Blood Pressure 128/87 116/83 123/82 O2 Sat by Pulse 98 98 98 Oximetry 12/09/16 12/09/16 12/09/16 02:00 02:30 03:00 Temperature 99.6 F Pulse Rate 106 H 102 H 103 H Pulse Rate [ From Monitor] Respiratory 20 20 20 Rate Blood Pressure 135/91 124/79 97/61 O2 Sat by Pulse 96 100 100 Oximetry 12/09/16 12/09/16 12/09/16 03:30 04:00 04:30 Temperature 99.6 F Pulse Rate 103 H 106 H 115 H Pulse Rate [ From Monitor] Respiratory 25 H 23 14 Rate Blood Pressure 105/69 98/57 126/71 O2 Sat by Pulse 100 98 Oximetry 12/09/16 12/09/16 12/09/16 05:00 05:30 06:00 Temperature Pulse Rate 105 H 106 H 104 H Pulse Rate [ From Monitor] Respiratory 20 20 20 Rate Blood Pressure 111/76 97/65 86/60 O2 Sat by Pulse 96 97 Oximetry 12/09/16 12/09/16 12/09/16 06:30 07:00 07:30 Temperature Pulse Rate 101 H 103 H 103 H Pulse Rate [ From Monitor] Respiratory 21 20 20 Rate Blood Pressure 104/74 109/76 114/78 O2 Sat by Pulse 92 58 L 67 L Oximetry 12/09/16 12/09/16 12/09/16 08:00 08:10 08:30 Temperature 98.2 F Pulse Rate 103 H 105 H 108 H Pulse Rate [ 122 H From Monitor] Respiratory 19 10 L 13 Rate Blood Pressure 112/71 105/71 112/73 O2 Sat by Pulse 95 100 100 Oximetry 12/09/16 12/09/16 12/09/16 09:00 09:30 10:00 Temperature Pulse Rate 106 H 103 H 103 H Pulse Rate [ From Monitor] Respiratory 20 10 L 13 Rate Blood Pressure 117/73 114/66 112/76 O2 Sat by Pulse 100 100 100 Oximetry 12/09/16 12/09/16 12/09/16 10:30 11:00 11:30 Temperature Pulse Rate 110 H 112 H 108 H Pulse Rate [ From Monitor] Respiratory 20 16 19 Rate Blood Pressure 126/80 131/84 128/84 O2 Sat by Pulse 100 100 100 Oximetry 12/09/16 12:00 Temperature Pulse Rate 120 H Pulse Rate [ From Monitor] Respiratory 17 Rate Blood Pressure 143/78 O2 Sat by Pulse 99 Oximetry Constitutional: no acute distress, other (sedated lightly) Eyes: non-icteric ENT: oropharynx moist Neck: supple, no lymphadenopathy Effort: mildly labored Ascultation: Bilateral: diminished breath sounds, rales (scant) Cardiovascular: regular rate and rhythm, other (SVT) Gastrointestinal: normoactive bowel sounds, soft, non-tender, non-distended Integumentary: normal Extremities: no cyanosis, no edema, pulses normal, no ischemia or petechiae Neurologic: normal mental status, non-focal exam, pupils equal and round, motor strength normal and, other (sedated) Psychiatric: other (unable to assess) CBC and BMP: 12/10/16 09:55 12/10/16 09:55 ABG, PT/INR, D-dimer: ABG POC ABG pH 7.498 (7.35-7.45) H 12/08/16 23:32 POC ABG pCO2 25.2 (35-45) L 12/08/16 23:32 POC ABG pO2 137 (80-105) H 12/08/16 23:32 POC ABG HCO3 19.6 12/08/16 23:32 POC ABG Total CO2 20 12/08/16 23:32 POC ABG O2 Sat 99 12/08/16 23:32 PT/INR, D-dimer PT 15.3 Sec. (12.2-14.9) H 12/08/16 19:00 INR 1.22 (0.87-1.13) H 12/08/16 19:00 D-Dimer 5507.36 ng/mlDDU (0-234) H 12/08/16 19:00 Abnormal lab findings: Abnormal Labs 12/04/16 12/04/16 12/04/16 01:19 01:36 02:21 WBC RBC Hgb Hct MCV MCHC RDW Plt Count Seg Neuts % (Manual) Lymphocytes % (Manual) Nucleated RBC % Lymphocytes # (Manual) PT INR Fibrinogen D-Dimer POC ABG pH 6.759 L POC ABG pCO2 POC ABG pO2 437 H Sodium Potassium Chloride Carbon Dioxide BUN Creatinine Glucose POC Glucose > 500 H Lactic Acid Calcium Phosphorus 15.70 H Magnesium 4.30 H Total Bilirubin Direct Bilirubin AST ALT Alkaline Phosphatase Lactate Dehydrogenase CK-MB (CK-2) Troponin T C-Reactive Protein Total Protein Albumin Triglycerides Cholesterol HDL Cholesterol Urine Creatinine Urine Total Protein Crossmatch 12/04/16 12/04/16 12/04/16 03:55 04:00 05:11 WBC RBC Hgb Hct MCV MCHC RDW Plt Count Seg Neuts % (Manual) Lymphocytes % (Manual) Nucleated RBC % Lymphocytes # (Manual) PT INR Fibrinogen D-Dimer POC ABG pH POC ABG pCO2 POC ABG pO2 Sodium Potassium Chloride 91.4 L Carbon Dioxide 8 L* BUN 55 H Creatinine 2.8 H Glucose 1610 H* POC Glucose > 500 H > 500 H Lactic Acid Calcium Phosphorus Magnesium Total Bilirubin Direct Bilirubin AST ALT Alkaline Phosphatase Lactate Dehydrogenase CK-MB (CK-2) Troponin T C-Reactive Protein Total Protein Albumin Triglycerides Cholesterol HDL Cholesterol Urine Creatinine Urine Total Protein Crossmatch 12/04/16 12/04/16 12/04/16 05:40 05:54 06:58 WBC RBC Hgb Hct MCV MCHC RDW Plt Count Seg Neuts % (Manual) Lymphocytes % (Manual) Nucleated RBC % Lymphocytes # (Manual) PT INR Fibrinogen D-Dimer POC ABG pH 7.154 L POC ABG pCO2 27.5 L POC ABG pO2 111 H Sodium Potassium Chloride Carbon Dioxide BUN Creatinine Glucose POC Glucose > 500 H > 500 H Lactic Acid Calcium Phosphorus Magnesium Total Bilirubin Direct Bilirubin AST ALT Alkaline Phosphatase Lactate Dehydrogenase CK-MB (CK-2) Troponin T C-Reactive Protein Total Protein Albumin Triglycerides Cholesterol HDL Cholesterol Urine Creatinine Urine Total Protein Crossmatch 12/04/16 12/04/16 12/04/16 07:49 07:55 07:55 WBC RBC Hgb Hct MCV MCHC RDW Plt Count Seg Neuts % (Manual) Lymphocytes % (Manual) Nucleated RBC % Lymphocytes # (Manual) PT INR Fibrinogen D-Dimer POC ABG pH POC ABG pCO2 POC ABG pO2 Sodium Potassium 3.3 L Chloride Carbon Dioxide 9 L* BUN 53 H Creatinine 2.9 H Glucose 1229 H* POC Glucose > 500 H Lactic Acid Calcium Phosphorus Magnesium Total Bilirubin Direct Bilirubin AST ALT Alkaline Phosphatase Lactate Dehydrogenase CK-MB (CK-2) Troponin T 0.111 H* D C-Reactive Protein Total Protein Albumin Triglycerides 570 H Cholesterol 221 H HDL Cholesterol 37 L Urine Creatinine Urine Total Protein Crossmatch 12/04/16 12/04/16 12/04/16 07:55 09:55 09:55 WBC RBC 2.90 L Hgb 8.5 L Hct 30.2 L D MCV 105 H D MCHC 28 L RDW 19.2 H Plt Count Seg Neuts % (Manual) Lymphocytes % (Manual) 11.0 L Nucleated RBC % Lymphocytes # (Manual) 0.6 L PT INR Fibrinogen D-Dimer POC ABG pH POC ABG pCO2 POC ABG pO2 Sodium Potassium 3.1 L Chloride Carbon Dioxide 7 L* BUN 51 H Creatinine 3.2 H Glucose 969 H* POC Glucose Lactic Acid Calcium 10.4 H D Phosphorus Magnesium Total Bilirubin Direct Bilirubin AST ALT Alkaline Phosphatase Lactate Dehydrogenase CK-MB (CK-2) 4.6 H Troponin T 0.140 H* D C-Reactive Protein Total Protein Albumin Triglycerides Cholesterol HDL Cholesterol Urine Creatinine Urine Total Protein Crossmatch 12/04/16 12/04/16 12/04/16 09:55 10:37 11:25 WBC RBC Hgb Hct MCV MCHC RDW Plt Count Seg Neuts % (Manual) Lymphocytes % (Manual) Nucleated RBC % Lymphocytes # (Manual) PT INR Fibrinogen D-Dimer POC ABG pH 7.215 L POC ABG pCO2 18.8 L POC ABG pO2 193 H Sodium Potassium Chloride Carbon Dioxide BUN Creatinine Glucose POC Glucose Lactic Acid Calcium Phosphorus Magnesium 3.70 H Total Bilirubin Direct Bilirubin AST ALT Alkaline Phosphatase Lactate Dehydrogenase CK-MB (CK-2) Troponin T C-Reactive Protein Total Protein Albumin Triglycerides Cholesterol HDL Cholesterol Urine Creatinine 29.5 H Urine Total Protein 33 H Crossmatch 12/04/16 12/04/16 12/04/16 12:00 12:48 13:00 WBC RBC Hgb Hct MCV MCHC RDW Plt Count Seg Neuts % (Manual) Lymphocytes % (Manual) Nucleated RBC % Lymphocytes # (Manual) PT INR Fibrinogen D-Dimer POC ABG pH POC ABG pCO2 POC ABG pO2 Sodium 149 H 150 H Potassium 3.2 L 3.2 L Chloride 109.1 H Carbon Dioxide 8 L* 8 L* BUN 52 H 49 H Creatinine 3.4 H 3.1 H Glucose 723 H* 574 H* POC Glucose Lactic Acid 18.80 H* Calcium Phosphorus Magnesium Total Bilirubin Direct Bilirubin AST ALT Alkaline Phosphatase Lactate Dehydrogenase CK-MB (CK-2) Troponin T C-Reactive Protein Total Protein Albumin Triglycerides Cholesterol HDL Cholesterol Urine Creatinine Urine Total Protein Crossmatch 12/04/16 12/04/16 12/04/16 13:01 14:41 16:06 WBC RBC Hgb Hct MCV MCHC RDW Plt Count Seg Neuts % (Manual) Lymphocytes % (Manual) Nucleated RBC % Lymphocytes # (Manual) PT INR Fibrinogen D-Dimer POC ABG pH POC ABG pCO2 POC ABG pO2 Sodium 151 H Potassium 3.2 L Chloride 108.1 H Carbon Dioxide 10 L BUN 49 H Creatinine 3.0 H Glucose 383 H POC Glucose 292 H Lactic Acid Calcium Phosphorus Magnesium Total Bilirubin Direct Bilirubin AST ALT Alkaline Phosphatase Lactate Dehydrogenase CK-MB (CK-2) Troponin T C-Reactive Protein 3.50 H Total Protein Albumin Triglycerides Cholesterol HDL Cholesterol Urine Creatinine Urine Total Protein Crossmatch 12/04/16 12/04/16 12/04/16 17:15 17:25 18:07 WBC RBC Hgb Hct MCV MCHC RDW Plt Count Seg Neuts % (Manual) Lymphocytes % (Manual) Nucleated RBC % Lymphocytes # (Manual) PT INR Fibrinogen D-Dimer POC ABG pH 7.255 L POC ABG pCO2 16.9 L POC ABG pO2 169 H Sodium Potassium Chloride Carbon Dioxide BUN Creatinine Glucose POC Glucose 246 H Lactic Acid 18.50 H* Calcium Phosphorus Magnesium Total Bilirubin Direct Bilirubin AST ALT Alkaline Phosphatase Lactate Dehydrogenase CK-MB (CK-2) Troponin T C-Reactive Protein Total Protein Albumin Triglycerides Cholesterol HDL Cholesterol Urine Creatinine Urine Total Protein Crossmatch 12/04/16 12/04/16 12/04/16 19:34 20:31 21:15 WBC RBC Hgb Hct MCV MCHC RDW Plt Count Seg Neuts % (Manual) Lymphocytes % (Manual) Nucleated RBC % Lymphocytes # (Manual) PT INR Fibrinogen D-Dimer POC ABG pH POC ABG pCO2 POC ABG pO2 Sodium Potassium Chloride Carbon Dioxide BUN Creatinine Glucose POC Glucose 189 H 126 H 139 H Lactic Acid Calcium Phosphorus Magnesium Total Bilirubin Direct Bilirubin AST ALT Alkaline Phosphatase Lactate Dehydrogenase CK-MB (CK-2) Troponin T C-Reactive Protein Total Protein Albumin Triglycerides Cholesterol HDL Cholesterol Urine Creatinine Urine Total Protein Crossmatch 12/04/16 12/04/16 12/04/16 21:25 22:37 23:35 WBC RBC Hgb Hct MCV MCHC RDW Plt Count Seg Neuts % (Manual) Lymphocytes % (Manual) Nucleated RBC % Lymphocytes # (Manual) PT INR Fibrinogen D-Dimer POC ABG pH 7.294 L POC ABG pCO2 16.7 L POC ABG pO2 169 H Sodium Potassium Chloride Carbon Dioxide BUN Creatinine Glucose POC Glucose 131 H 106 H Lactic Acid Calcium Phosphorus Magnesium Total Bilirubin Direct Bilirubin AST ALT Alkaline Phosphatase Lactate Dehydrogenase CK-MB (CK-2) Troponin T C-Reactive Protein Total Protein Albumin Triglycerides Cholesterol HDL Cholesterol Urine Creatinine Urine Total Protein Crossmatch 12/05/16 12/05/16 12/05/16 02:40 02:50 02:50 WBC RBC Hgb Hct MCV MCHC RDW Plt Count Seg Neuts % (Manual) Lymphocytes % (Manual) Nucleated RBC % Lymphocytes # (Manual) PT INR Fibrinogen D-Dimer POC ABG pH POC ABG pCO2 POC ABG pO2 Sodium 151 H Potassium Chloride 113.8 H Carbon Dioxide 12 L BUN 46 H Creatinine 3.2 H Glucose 165 H POC Glucose 109 H Lactic Acid 9.80 H* Calcium 8.3 L Phosphorus Magnesium Total Bilirubin Direct Bilirubin AST ALT Alkaline Phosphatase Lactate Dehydrogenase CK-MB (CK-2) Troponin T C-Reactive Protein Total Protein Albumin Triglycerides Cholesterol HDL Cholesterol Urine Creatinine Urine Total Protein Crossmatch 12/05/16 12/05/16 12/05/16 04:01 04:30 04:30 WBC 19.1 H RBC 2.91 L Hgb 8.0 L Hct 25.4 L MCV MCHC RDW 17.8 H Plt Count Seg Neuts % (Manual) 17.0 L Lymphocytes % (Manual) 7.0 L Nucleated RBC % 3.0 H Lymphocytes # (Manual) PT INR Fibrinogen D-Dimer POC ABG pH POC ABG pCO2 POC ABG pO2 Sodium 152 H Potassium Chloride 113.5 H Carbon Dioxide 12 L BUN 47 H Creatinine 3.2 H Glucose 133 H POC Glucose 179 H Lactic Acid Calcium 8.3 L Phosphorus 1.00 L D Magnesium Total Bilirubin Direct Bilirubin AST ALT Alkaline Phosphatase Lactate Dehydrogenase CK-MB (CK-2) Troponin T C-Reactive Protein Total Protein Albumin Triglycerides Cholesterol HDL Cholesterol Urine Creatinine Urine Total Protein Crossmatch 12/05/16 12/05/16 12/05/16 05:32 08:01 08:48 WBC RBC Hgb Hct MCV MCHC RDW Plt Count Seg Neuts % (Manual) Lymphocytes % (Manual) Nucleated RBC % Lymphocytes # (Manual) PT INR Fibrinogen D-Dimer POC ABG pH POC ABG pCO2 17.6 L POC ABG pO2 62 L Sodium Potassium Chloride Carbon Dioxide BUN Creatinine Glucose POC Glucose 126 H 130 H Lactic Acid Calcium Phosphorus Magnesium Total Bilirubin Direct Bilirubin AST ALT Alkaline Phosphatase Lactate Dehydrogenase CK-MB (CK-2) Troponin T C-Reactive Protein Total Protein Albumin Triglycerides Cholesterol HDL Cholesterol Urine Creatinine Urine Total Protein Crossmatch 12/05/16 12/05/16 12/05/16 08:54 12:01 15:15 WBC RBC Hgb Hct MCV MCHC RDW Plt Count Seg Neuts % (Manual) Lymphocytes % (Manual) Nucleated RBC % Lymphocytes # (Manual) PT INR Fibrinogen D-Dimer POC ABG pH POC ABG pCO2 POC ABG pO2 Sodium Potassium Chloride Carbon Dioxide BUN Creatinine Glucose POC Glucose 157 H 117 H 166 H Lactic Acid Calcium Phosphorus Magnesium Total Bilirubin Direct Bilirubin AST ALT Alkaline Phosphatase Lactate Dehydrogenase CK-MB (CK-2) Troponin T C-Reactive Protein Total Protein Albumin Triglycerides Cholesterol HDL Cholesterol Urine Creatinine Urine Total Protein Crossmatch 12/05/16 12/05/16 12/05/16 16:10 16:55 17:08 WBC RBC Hgb Hct MCV MCHC RDW Plt Count Seg Neuts % (Manual) Lymphocytes % (Manual) Nucleated RBC % Lymphocytes # (Manual) PT INR Fibrinogen D-Dimer POC ABG pH POC ABG pCO2 POC ABG pO2 Sodium Potassium Chloride Carbon Dioxide BUN Creatinine Glucose POC Glucose 178 H 169 H Lactic Acid Calcium Phosphorus 5.00 H D Magnesium Total Bilirubin Direct Bilirubin AST ALT Alkaline Phosphatase Lactate Dehydrogenase CK-MB (CK-2) Troponin T C-Reactive Protein Total Protein Albumin Triglycerides Cholesterol HDL Cholesterol Urine Creatinine Urine Total Protein Crossmatch 12/05/16 12/05/16 12/05/16 18:08 18:51 20:04 WBC RBC Hgb Hct MCV MCHC RDW Plt Count Seg Neuts % (Manual) Lymphocytes % (Manual) Nucleated RBC % Lymphocytes # (Manual) PT INR Fibrinogen D-Dimer POC ABG pH POC ABG pCO2 POC ABG pO2 Sodium Potassium Chloride Carbon Dioxide BUN Creatinine Glucose POC Glucose 147 H 113 H 64 L Lactic Acid Calcium Phosphorus Magnesium Total Bilirubin Direct Bilirubin AST ALT Alkaline Phosphatase Lactate Dehydrogenase CK-MB (CK-2) Troponin T C-Reactive Protein Total Protein Albumin Triglycerides Cholesterol HDL Cholesterol Urine Creatinine Urine Total Protein Crossmatch 12/05/16 12/05/16 12/05/16 21:34 22:08 23:19 WBC RBC Hgb Hct MCV MCHC RDW Plt Count Seg Neuts % (Manual) Lymphocytes % (Manual) Nucleated RBC % Lymphocytes # (Manual) PT INR Fibrinogen D-Dimer POC ABG pH 7.303 L POC ABG pCO2 18.3 L POC ABG pO2 73 L Sodium Potassium Chloride Carbon Dioxide BUN Creatinine Glucose POC Glucose 141 H 200 H Lactic Acid Calcium Phosphorus Magnesium Total Bilirubin Direct Bilirubin AST ALT Alkaline Phosphatase Lactate Dehydrogenase CK-MB (CK-2) Troponin T C-Reactive Protein Total Protein Albumin Triglycerides Cholesterol HDL Cholesterol Urine Creatinine Urine Total Protein Crossmatch 12/06/16 12/06/16 12/06/16 00:01 01:09 02:00 WBC RBC Hgb Hct MCV MCHC RDW Plt Count Seg Neuts % (Manual) Lymphocytes % (Manual) Nucleated RBC % Lymphocytes # (Manual) PT INR Fibrinogen D-Dimer POC ABG pH POC ABG pCO2 POC ABG pO2 Sodium Potassium Chloride Carbon Dioxide BUN Creatinine Glucose POC Glucose 211 H 116 H 57 L Lactic Acid Calcium Phosphorus Magnesium Total Bilirubin Direct Bilirubin AST ALT Alkaline Phosphatase Lactate Dehydrogenase CK-MB (CK-2) Troponin T C-Reactive Protein Total Protein Albumin Triglycerides Cholesterol HDL Cholesterol Urine Creatinine Urine Total Protein Crossmatch 12/06/16 12/06/16 12/06/16 04:14 04:50 04:50 WBC RBC 2.68 L Hgb 7.6 L Hct 23.2 L MCV MCHC RDW 18.9 H Plt Count Seg Neuts % (Manual) 32.0 L Lymphocytes % (Manual) Nucleated RBC % 3.0 H Lymphocytes # (Manual) 0.9 L PT INR Fibrinogen D-Dimer POC ABG pH POC ABG pCO2 POC ABG pO2 Sodium Potassium 5.8 H D Chloride 111.5 H Carbon Dioxide 11 L BUN 52 H Creatinine 3.8 H Glucose 186 H POC Glucose 133 H Lactic Acid Calcium 6.5 L D Phosphorus 5.80 H Magnesium Total Bilirubin Direct Bilirubin AST ALT Alkaline Phosphatase Lactate Dehydrogenase CK-MB (CK-2) Troponin T C-Reactive Protein Total Protein Albumin Triglycerides Cholesterol HDL Cholesterol Urine Creatinine Urine Total Protein Crossmatch 12/06/16 12/06/16 12/06/16 04:50 05:04 05:07 WBC RBC Hgb Hct MCV MCHC RDW Plt Count Seg Neuts % (Manual) Lymphocytes % (Manual) Nucleated RBC % Lymphocytes # (Manual) PT INR Fibrinogen D-Dimer POC ABG pH POC ABG pCO2 13.0 L POC ABG pO2 111 H Sodium Potassium Chloride Carbon Dioxide BUN Creatinine Glucose POC Glucose 127 H Lactic Acid 6.50 H* Calcium Phosphorus Magnesium Total Bilirubin Direct Bilirubin AST ALT Alkaline Phosphatase Lactate Dehydrogenase CK-MB (CK-2) Troponin T C-Reactive Protein Total Protein Albumin Triglycerides Cholesterol HDL Cholesterol Urine Creatinine Urine Total Protein Crossmatch 12/06/16 12/06/16 12/06/16 06:10 06:54 07:46 WBC RBC Hgb Hct MCV MCHC RDW Plt Count Seg Neuts % (Manual) Lymphocytes % (Manual) Nucleated RBC % Lymphocytes # (Manual) PT INR Fibrinogen D-Dimer POC ABG pH POC ABG pCO2 POC ABG pO2 Sodium Potassium Chloride Carbon Dioxide BUN Creatinine Glucose POC Glucose 219 H 237 H 158 H Lactic Acid Calcium Phosphorus Magnesium Total Bilirubin Direct Bilirubin AST ALT Alkaline Phosphatase Lactate Dehydrogenase CK-MB (CK-2) Troponin T C-Reactive Protein Total Protein Albumin Triglycerides Cholesterol HDL Cholesterol Urine Creatinine Urine Total Protein Crossmatch 12/06/16 12/06/16 12/06/16 08:55 10:27 11:58 WBC RBC Hgb Hct MCV MCHC RDW Plt Count Seg Neuts % (Manual) Lymphocytes % (Manual) Nucleated RBC % Lymphocytes # (Manual) PT INR Fibrinogen D-Dimer POC ABG pH POC ABG pCO2 POC ABG pO2 Sodium Potassium Chloride Carbon Dioxide BUN Creatinine Glucose POC Glucose 40 L 128 H 144 H Lactic Acid Calcium Phosphorus Magnesium Total Bilirubin Direct Bilirubin AST ALT Alkaline Phosphatase Lactate Dehydrogenase CK-MB (CK-2) Troponin T C-Reactive Protein Total Protein Albumin Triglycerides Cholesterol HDL Cholesterol Urine Creatinine Urine Total Protein Crossmatch 07/07/2412/06/16 12/06/16 18:14 19:00 19:06 WBC RBC Hgb Hct MCV MCHC RDW Plt Count Seg Neuts % (Manual) Lymphocytes % (Manual) Nucleated RBC % Lymphocytes # (Manual) PT INR Fibrinogen D-Dimer POC ABG pH POC ABG pCO2 POC ABG pO2 Sodium 149 H Potassium 5.6 H Chloride 115.9 H Carbon Dioxide 13 L BUN 56 H Creatinine 4.3 H Glucose 124 H POC Glucose 55 L 148 H Lactic Acid Calcium 6.0 L Phosphorus Magnesium Total Bilirubin Direct Bilirubin AST ALT Alkaline Phosphatase Lactate Dehydrogenase CK-MB (CK-2) Troponin T C-Reactive Protein Total Protein Albumin Triglycerides Cholesterol HDL Cholesterol Urine Creatinine Urine Total Protein Crossmatch 12/06/16 12/06/16 12/07/16 21:24 21:51 02:32 WBC RBC Hgb Hct MCV MCHC RDW Plt Count Seg Neuts % (Manual) Lymphocytes % (Manual) Nucleated RBC % Lymphocytes # (Manual) PT INR Fibrinogen D-Dimer POC ABG pH POC ABG pCO2 17.0 L POC ABG pO2 142 H Sodium Potassium Chloride Carbon Dioxide BUN Creatinine Glucose POC Glucose 107 H 175 H Lactic Acid Calcium Phosphorus Magnesium Total Bilirubin Direct Bilirubin AST ALT Alkaline Phosphatase Lactate Dehydrogenase CK-MB (CK-2) Troponin T C-Reactive Protein Total Protein Albumin Triglycerides Cholesterol HDL Cholesterol Urine Creatinine Urine Total Protein Crossmatch 12/07/16 12/07/16 12/07/16 05:01 05:25 06:00 WBC RBC 2.52 L Hgb 7.1 L Hct 22.1 L MCV MCHC RDW 19.3 H Plt Count 90 L Seg Neuts % (Manual) 75.0 H Lymphocytes % (Manual) 11.0 L Nucleated RBC % Lymphocytes # (Manual) 0.7 L PT INR Fibrinogen D-Dimer POC ABG pH 7.300 L POC ABG pCO2 17.1 L POC ABG pO2 140 H Sodium Potassium Chloride Carbon Dioxide BUN Creatinine Glucose POC Glucose 279 H Lactic Acid Calcium Phosphorus Magnesium Total Bilirubin Direct Bilirubin AST ALT Alkaline Phosphatase Lactate Dehydrogenase CK-MB (CK-2) Troponin T C-Reactive Protein Total Protein Albumin Triglycerides Cholesterol HDL Cholesterol Urine Creatinine Urine Total Protein Crossmatch 12/07/16 12/07/16 12/07/16 06:00 06:00 07:30 WBC RBC Hgb Hct MCV MCHC RDW Plt Count Seg Neuts % (Manual) Lymphocytes % (Manual) Nucleated RBC % Lymphocytes # (Manual) PT INR Fibrinogen D-Dimer POC ABG pH POC ABG pCO2 POC ABG pO2 Sodium Potassium Chloride Carbon Dioxide BUN Creatinine Glucose POC Glucose Lactic Acid 6.90 H* Calcium Phosphorus 6.80 H Magnesium Total Bilirubin Direct Bilirubin AST ALT Alkaline Phosphatase Lactate Dehydrogenase CK-MB (CK-2) Troponin T C-Reactive Protein 39.40 H Total Protein Albumin Triglycerides Cholesterol HDL Cholesterol Urine Creatinine Urine Total Protein Crossmatch 12/07/16 12/07/16 12/07/16 08:40 10:53 14:31 WBC RBC Hgb Hct MCV MCHC RDW Plt Count Seg Neuts % (Manual) Lymphocytes % (Manual) Nucleated RBC % Lymphocytes # (Manual) PT INR Fibrinogen D-Dimer POC ABG pH POC ABG pCO2 POC ABG pO2 Sodium Potassium 7.0 H* D Chloride 112.4 H Carbon Dioxide 8 L* BUN 61 H Creatinine 5.1 H Glucose 213 H POC Glucose 353 H 52 L Lactic Acid Calcium 5.8 L* Phosphorus Magnesium Total Bilirubin Direct Bilirubin AST ALT Alkaline Phosphatase Lactate Dehydrogenase CK-MB (CK-2) Troponin T C-Reactive Protein Total Protein Albumin Triglycerides Cholesterol HDL Cholesterol Urine Creatinine Urine Total Protein Crossmatch 12/07/16 12/07/16 12/07/16 14:45 15:33 16:22 WBC RBC Hgb Hct MCV MCHC RDW Plt Count Seg Neuts % (Manual) Lymphocytes % (Manual) Nucleated RBC % Lymphocytes # (Manual) PT 17.5 H INR 1.44 H Fibrinogen D-Dimer POC ABG pH POC ABG pCO2 POC ABG pO2 Sodium Potassium Chloride Carbon Dioxide BUN Creatinine Glucose POC Glucose < 40 L 118 H Lactic Acid Calcium Phosphorus Magnesium Total Bilirubin Direct Bilirubin AST ALT Alkaline Phosphatase Lactate Dehydrogenase CK-MB (CK-2) Troponin T C-Reactive Protein Total Protein Albumin Triglycerides Cholesterol HDL Cholesterol Urine Creatinine Urine Total Protein Crossmatch 12/07/16 12/07/16 12/07/16 21:35 21:35 21:58 WBC RBC Hgb Hct MCV MCHC RDW Plt Count Seg Neuts % (Manual) Lymphocytes % (Manual) Nucleated RBC % Lymphocytes # (Manual) PT INR Fibrinogen D-Dimer POC ABG pH POC ABG pCO2 POC ABG pO2 Sodium 150 H Potassium 3.3 L D Chloride 111.4 H Carbon Dioxide 21 L D BUN 22 H Creatinine 2.6 H Glucose 23 L* POC Glucose < 40 L Lactic Acid Calcium Phosphorus Magnesium Total Bilirubin 1.40 H Direct Bilirubin 0.9 H AST 94 H ALT 142 H Alkaline Phosphatase 249 H Lactate Dehydrogenase CK-MB (CK-2) Troponin T C-Reactive Protein Total Protein 4.6 L D Albumin 2.1 L Triglycerides Cholesterol HDL Cholesterol Urine Creatinine Urine Total Protein Crossmatch 12/07/16 12/08/16 12/08/16 23:31 04:43 04:50 WBC RBC 2.35 L Hgb 6.6 L Hct 20.1 L MCV MCHC RDW 17.8 H Plt Count 48 L Seg Neuts % (Manual) Lymphocytes % (Manual) Nucleated RBC % Lymphocytes # (Manual) 0.9 L PT INR Fibrinogen D-Dimer POC ABG pH 7.586 H POC ABG pCO2 17.7 L POC ABG pO2 150 H Sodium Potassium Chloride Carbon Dioxide BUN Creatinine Glucose POC Glucose 42 L Lactic Acid Calcium Phosphorus Magnesium Total Bilirubin Direct Bilirubin AST ALT Alkaline Phosphatase Lactate Dehydrogenase CK-MB (CK-2) Troponin T C-Reactive Protein Total Protein Albumin Triglycerides Cholesterol HDL Cholesterol Urine Creatinine Urine Total Protein Crossmatch 12/08/16 12/08/16 12/08/16 04:50 04:59 06:54 WBC RBC Hgb Hct MCV MCHC RDW Plt Count Seg Neuts % (Manual) Lymphocytes % (Manual) Nucleated RBC % Lymphocytes # (Manual) PT INR Fibrinogen D-Dimer POC ABG pH POC ABG pCO2 POC ABG pO2 Sodium 149 H Potassium 3.2 L Chloride 111.8 H Carbon Dioxide 17 L BUN 26 H Creatinine 3.4 H Glucose 163 H POC Glucose 204 H 203 H Lactic Acid Calcium 7.7 L Phosphorus 2.40 L D Magnesium Total Bilirubin Direct Bilirubin AST ALT Alkaline Phosphatase Lactate Dehydrogenase CK-MB (CK-2) Troponin T C-Reactive Protein Total Protein Albumin Triglycerides Cholesterol HDL Cholesterol Urine Creatinine Urine Total Protein Crossmatch 12/08/16 12/08/16 12/08/16 08:04 08:46 08:46 WBC RBC Hgb Hct MCV MCHC RDW Plt Count Seg Neuts % (Manual) Lymphocytes % (Manual) Nucleated RBC % Lymphocytes # (Manual) PT INR Fibrinogen D-Dimer POC ABG pH POC ABG pCO2 POC ABG pO2 Sodium 147 H Potassium 2.9 L* Chloride 110.6 H Carbon Dioxide 17 L BUN 28 H Creatinine 3.6 H Glucose 127 H POC Glucose 205 H Lactic Acid Calcium 7.3 L Phosphorus Magnesium Total Bilirubin Direct Bilirubin AST ALT Alkaline Phosphatase Lactate Dehydrogenase CK-MB (CK-2) Troponin T C-Reactive Protein Total Protein Albumin Triglycerides Cholesterol HDL Cholesterol Urine Creatinine Urine Total Protein Crossmatch See Detail 12/08/16 12/08/16 12/08/16 12:36 19:00 19:00 WBC RBC Hgb Hct MCV MCHC RDW Plt Count Seg Neuts % (Manual) Lymphocytes % (Manual) Nucleated RBC % Lymphocytes # (Manual) PT 15.3 H INR 1.22 H Fibrinogen 563 H D-Dimer 5507.36 H POC ABG pH POC ABG pCO2 POC ABG pO2 Sodium Potassium Chloride Carbon Dioxide 21 L BUN Creatinine 1.7 H D Glucose 155 H POC Glucose 181 H Lactic Acid Calcium Phosphorus Magnesium Total Bilirubin Direct Bilirubin AST ALT Alkaline Phosphatase Lactate Dehydrogenase CK-MB (CK-2) Troponin T C-Reactive Protein Total Protein Albumin Triglycerides Cholesterol HDL Cholesterol Urine Creatinine Urine Total Protein Crossmatch 12/08/16 12/08/16 12/08/16 19:00 19:00 23:32 WBC RBC 2.76 L Hgb 7.8 L Hct 23.7 L MCV MCHC RDW 17.0 H Plt Count 38 L Seg Neuts % (Manual) Lymphocytes % (Manual) Nucleated RBC % Lymphocytes # (Manual) PT INR Fibrinogen D-Dimer POC ABG pH 7.498 H POC ABG pCO2 25.2 L POC ABG pO2 137 H Sodium Potassium Chloride Carbon Dioxide BUN Creatinine Glucose POC Glucose Lactic Acid Calcium Phosphorus Magnesium Total Bilirubin Direct Bilirubin AST ALT Alkaline Phosphatase Lactate Dehydrogenase 382 H CK-MB (CK-2) Troponin T C-Reactive Protein Total Protein Albumin Triglycerides Cholesterol HDL Cholesterol Urine Creatinine Urine Total Protein Crossmatch 12/08/16 12/09/16 12/09/16 23:44 05:22 06:00 WBC RBC Hgb Hct MCV MCHC RDW Plt Count Seg Neuts % (Manual) Lymphocytes % (Manual) Nucleated RBC % Lymphocytes # (Manual) PT INR Fibrinogen D-Dimer POC ABG pH POC ABG pCO2 POC ABG pO2 Sodium Potassium Chloride 110.2 H Carbon Dioxide 18 L BUN 19 H Creatinine 2.5 H Glucose 105 H POC Glucose 311 H 113 H Lactic Acid Calcium Phosphorus 2.00 L Magnesium Total Bilirubin Direct Bilirubin AST ALT Alkaline Phosphatase Lactate Dehydrogenase CK-MB (CK-2) Troponin T C-Reactive Protein Total Protein Albumin Triglycerides Cholesterol HDL Cholesterol Urine Creatinine Urine Total Protein Crossmatch 12/09/16 12/09/16 11:59 Unknown WBC 11.3 H RBC 2.92 L Hgb 8.4 L Hct 25.3 L MCV MCHC RDW 16.9 H Plt Count 31 L Seg Neuts % (Manual) Lymphocytes % (Manual) Nucleated RBC % Lymphocytes # (Manual) PT INR Fibrinogen D-Dimer POC ABG pH POC ABG pCO2 POC ABG pO2 Sodium Potassium Chloride Carbon Dioxide BUN Creatinine Glucose POC Glucose 254 H Lactic Acid Calcium Phosphorus Magnesium Total Bilirubin Direct Bilirubin AST ALT Alkaline Phosphatase Lactate Dehydrogenase CK-MB (CK-2) Troponin T C-Reactive Protein Total Protein Albumin Triglycerides Cholesterol HDL Cholesterol Urine Creatinine Urine Total Protein Crossmatch Chest x-ray: image reviewed (RUL pneumonia)
[2016-12-09 13:09] LABS: ISTAT Base Excess -6; ISTAT HCO3 19.7; ISTAT PCO2 37.7 (35-45); ISTAT PH 7.326 (7.35-7.45); ISTAT PO2 115 (80-105); ISTAT SO2 98; ISTAT TCO2 21
[2016-12-09] MEDS: MERREM 1,000 MG in NACL 0.9% 100 ML IV SCH (14:10)
--- NOTE | 2016-12-09 14:26 | Progress Note ---
Assessment and Plan Assessment and plan: Patient is a 46-year-old woman with history of insulin-dependent diabetes mellitus, hypertension, recent SAH and dyslipidemia who presented with DKA, AMS and STEMI with V. fib arrest requiring IV amiodarone suppression. She is currently intubated. She has a right groin triple-lumen catheter, Short, NG tube, ET tube, she was on IV insulin drip for documented DKA. Also, she is on Levophed, IV vancomycin and propofol drip. -Cardiac arrest with V. fib: Cardiology is following -ARF, ATN, poa: renal is following, on hemodialysis -Acute hypoxic respiratory failure, intubated: Guardian Family Member is following -Cardiac arrest was STEMI: Cardiology is following -Suspected DKA: insulin -Acidosis, treat the DKA -Acute metabolic encephalopathy, poa -Leukocytosis on iv zosyn, +GNR in trach aspirate -DVT prophylaxis: SCDs only due to recent SAH s/p 1 unit of prbc with HD today, will give another unit plt counts continued to drop: consult Heme/onc, Dr. Rico poor prognosis Transfuse platelet History Interval history: Patient seen and examined. Follow up on cardiac arrest, Imaging, old records, testing, labs, nursing notes reviewed. Hospitalist Physical - Physical exam Narrative exam: GEN: Intubated, ETT in place, CVS: regular, +3/6 murmur, NORMAL S1S2 LUNGS/CHEST: irregular chest inspiration, GOOD AIR ENTRY B ABD: SOFT, pbs NEURO: sedated - Constitutional Vitals: Temp Pulse Resp BP Pulse Ox 97.1 F L 120 H 17 143/78 99 12/09/16 12:27 12/09/16 12:00 12/09/16 12:00 12/09/16 12:00 12/09/16 12:00 General appearance: Present: other (intubated, awake, in no apparent distress) Results - Labs CBC & Chem 7: 12/09/16 Unknown 12/09/16 06:00 Labs: Laboratory Last Values WBC 11.3 K/mm3 (4.5-11.0) H 12/09/16 Unknown RBC 2.92 M/mm3 (3.65-5.03) L 12/09/16 Unknown Hgb 8.4 gm/dl (10.1-14.3) L 12/09/16 Unknown Hct 25.3 % (30.3-42.9) L 12/09/16 Unknown MCV 87 fl (79-97) 12/09/16 Unknown MCH 29 pg (28-32) 12/09/16 Unknown MCHC 33 % (30-34) 12/09/16 Unknown RDW 16.9 % (13.2-15.2) H 12/09/16 Unknown Plt Count 31 K/mm3 (140-440) L 12/09/16 Unknown Add Manual Diff Complete 12/09/16 Unknown Total Counted 100 12/09/16 Unknown Seg Neuts % (Manual) 42.0 % (40.0-70.0) 12/09/16 Unknown Band Neutrophils % 29.0 % 12/09/16 Unknown Lymphocytes % (Manual) 16.0 % (13.4-35.0) 12/09/16 Unknown Reactive Lymphs % (Man) 0 % 12/09/16 Unknown Monocytes % (Manual) 3.0 % (0.0-7.3) 12/09/16 Unknown Eosinophils % (Manual) 2.0 % (0.0-4.3) 12/09/16 Unknown Basophils % (Manual) 0 % (0.0-1.8) 12/09/16 Unknown Metamyelocytes % 2.0 % 12/09/16 Unknown Myelocytes % 6.0 % 12/09/16 Unknown Promyelocytes % 0 % 12/09/16 Unknown Blast Cells % 0 % 12/09/16 Unknown Nucleated RBC % Not Reportable 12/09/16 Unknown Seg Neutrophils # Man 4.7 K/mm3 (1.8-7.7) 12/09/16 Unknown Band Neutrophils # 3.3 K/mm3 12/09/16 Unknown Lymphocytes # (Manual) 1.8 K/mm3 (1.2-5.4) 12/09/16 Unknown Abs React Lymphs (Man) 0.0 K/mm3 12/09/16 Unknown Monocytes # (Manual) 0.3 K/mm3 (0.0-0.8) 12/09/16 Unknown Eosinophils # (Manual) 0.2 K/mm3 (0.0-0.4) 12/09/16 Unknown Basophils # (Manual) 0.0 K/mm3 (0.0-0.1) 12/09/16 Unknown Metamyelocytes # 0.2 K/mm3 12/09/16 Unknown Myelocytes # 0.7 K/mm3 12/09/16 Unknown Promyelocytes # 0.0 K/mm3 12/09/16 Unknown Blast Cells # 0.0 K/mm3 12/09/16 Unknown WBC Morphology Not Reportable 12/09/16 Unknown Hypersegmented Neuts Not Reportable 12/09/16 Unknown Hyposegmented Neuts Not Reportable 12/09/16 Unknown Hypogranular Neuts Not Reportable 12/09/16 Unknown Smudge Cells Not Reportable 12/09/16 Unknown Toxic Granulation Rare 12/09/16 Unknown Toxic Vacuolation Not Reportable 12/09/16 Unknown Dohle Bodies Not Reportable 12/09/16 Unknown Pelger-Huet Anomaly Not Reportable 12/09/16 Unknown Mary Rods Not Reportable 12/09/16 Unknown Platelet Estimate Appears decreased 12/09/16 Unknown Clumped Platelets Not Reportable 12/09/16 Unknown Plt Clumps, EDTA Not Reportable 12/09/16 Unknown Large Platelets Not Reportable 12/09/16 Unknown Giant Platelets Not Reportable 12/09/16 Unknown Platelet Satelliting Not Reportable 12/09/16 Unknown Plt Morphology Comment Not Reportable 12/09/16 Unknown RBC Morphology Not Reportable 12/09/16 Unknown Dimorphic RBCs Not Reportable 12/09/16 Unknown Polychromasia Not Reportable 12/09/16 Unknown Hypochromasia Not Reportable 12/09/16 Unknown Poikilocytosis Not Reportable 12/09/16 Unknown Anisocytosis 1+ 12/09/16 Unknown Microcytosis 1+ 12/09/16 Unknown Macrocytosis Not Reportable 12/09/16 Unknown Spherocytes Not Reportable 12/09/16 Unknown Pappenheimer Bodies Not Reportable 12/09/16 Unknown Sickle Cells Not Reportable 12/09/16 Unknown Target Cells 1+ 12/09/16 Unknown Tear Drop Cells Not Reportable 12/09/16 Unknown Ovalocytes Not Reportable 12/09/16 Unknown Helmet Cells Not Reportable 12/09/16 Unknown [place] Bodies Not Reportable 12/09/16 Unknown [place] Rings Not Reportable 12/09/16 Unknown [place] Cells Not Reportable 12/09/16 Unknown Bite Cells Not Reportable 12/09/16 Unknown Crenated Cell Not Reportable 12/09/16 Unknown Elliptocytes Not Reportable 12/09/16 Unknown Acanthocytes (Spur) Not Reportable 12/09/16 Unknown Rouleaux Not Reportable 12/09/16 Unknown Hemoglobin C Crystals Not Reportable 12/09/16 Unknown Schistocytes Not Reportable 12/09/16 Unknown Malaria parasites Not Reportable 12/09/16 Unknown Michael Bodies Not Reportable 12/09/16 Unknown Hem Pathologist Commnt No 12/09/16 Unknown PT 15.3 Sec. (12.2-14.9) H 12/08/16 19:00 INR 1.22 (0.87-1.13) H 12/08/16 19:00 APTT 36.2 Sec. (24.2-36.6) 12/08/16 19:00 Fibrinogen 563 mg/dl (211-480) H 12/08/16 19:00 D-Dimer 5507.36 ng/mlDDU (0-234) H 12/08/16 19:00 POC ABG pH 7.326 (7.35-7.45) L 12/09/16 12:02 POC ABG pCO2 37.7 (35-45) 12/09/16 12:02 POC ABG pO2 115 (80-105) H 12/09/16 12:02 POC ABG HCO3 19.7 12/09/16 12:02 POC ABG Total CO2 21 12/09/16 12:02 POC ABG O2 Sat 98 12/09/16 12:02 POC ABG Base Excess -6 12/09/16 12:02 FiO2 30 % 12/09/16 12:02 Sodium 145 mmol/L (137-145) 12/09/16 06:00 Potassium 3.9 mmol/L (3.6-5.0) 12/09/16 06:00 Chloride 110.2 mmol/L (98-107) H 12/09/16 06:00 Carbon Dioxide 18 mmol/L (22-30) L 12/09/16 06:00 Anion Gap 21 mmol/L 12/09/16 06:00 BUN 19 mg/dL (7-17) H 12/09/16 06:00 Creatinine 2.5 mg/dL (0.7-1.2) H 12/09/16 06:00 Estimated GFR 25 ml/min 12/09/16 06:00 BUN/Creatinine Ratio 7.60 % 12/09/16 06:00 Glucose 105 mg/dL (65-100) H 12/09/16 06:00 POC Glucose 254 (70-105) H 12/09/16 11:59 Lactic Acid 6.90 mmol/L (0.7-2.0) H* 12/07/16 07:30 Calcium 9.2 mg/dL (8.4-10.2) 12/09/16 06:00 Phosphorus 2.00 mg/dL (2.5-4.5) L 12/09/16 06:00 Magnesium 1.80 mg/dL (1.7-2.3) 12/09/16 05:36 Total Bilirubin 1.40 mg/dL (0.1-1.2) H 12/07/16 21:35 Direct Bilirubin 0.9 mg/dL (0-0.2) H 12/07/16 21:35 Indirect Bilirubin 0.5 mg/dL 12/07/16 21:35 AST 94 units/L (5-40) H 12/07/16 21:35 ALT 142 units/L (7-56) H 12/07/16 21:35 Alkaline Phosphatase 249 units/L (35-129) H 12/07/16 21:35 Lactate Dehydrogenase 382 units/L (91-180) H 12/08/16 19:00 Total Creatine Kinase 123 units/L (30-135) 12/04/16 09:55 CK-MB (CK-2) 4.6 ng/mL (0.0-4.0) H 12/04/16 09:55 CK-MB (CK-2) Rel Index 3.7 (0-4) 12/04/16 09:55 Troponin T 0.140 ng/mL (0.00-0.029) H* D 12/04/16 09:55 C-Reactive Protein 39.40 mg/dL (0.00-1.30) H 12/07/16 06:00 Total Protein 4.6 g/dL (6.3-8.2) L D 12/07/16 21:35 Albumin 2.1 g/dL (3.9-5) L 12/07/16 21:35 Albumin/Globulin Ratio 0.8 % 12/07/16 21:35 Triglycerides 570 mg/dL (2-149) H 12/04/16 07:55 Cholesterol 221 mg/dL (50-199) H 12/04/16 07:55 LDL Cholesterol Direct TNR 12/04/16 07:55 HDL Cholesterol 37 mg/dL (40-59) L 12/04/16 07:55 Cholesterol/HDL Ratio 5.97 % 12/04/16 07:55 TSH 1.600 mlU/mL (0.270-4.200) 12/03/16 23:20 Urine Color Yellow (Yellow) 12/04/16 11:25 Urine Turbidity Slightly-cloudy (Clear) 12/04/16 11:25 Urine pH 5.0 (5.0-7.0) 12/04/16 11:25 Ur Specific [place] 1.018 (1.003-1.030) 12/04/16 11:25 Urine Protein 30 mg/dl mg/dL (Negative) 12/04/16 11:25 Urine Glucose (UA) >=500 mg/dL (Negative) 12/04/16 11:25 Urine Ketones Tr mg/dL (Negative) 12/04/16 11:25 Urine Blood Sm (Negative) 12/04/16 11:25 Urine Nitrite Neg (Negative) 12/04/16 11:25 Urine Bilirubin Neg (Negative) 12/04/16 11:25 Urine Urobilinogen < 2.0 mg/dL (<2.0) 12/04/16 11:25 Ur Leukocyte Esterase Neg (Negative) 12/04/16 11:25 Urine WBC (Auto) 4.0 /HPF (0.0-6.0) 12/04/16 11:25 Urine RBC (Auto) 2.0 /HPF (0.0-6.0) 12/04/16 11:25 U Epithel Cells (Auto) < 1.0 /HPF (0-13.0) 12/04/16 11:25 Urine Mucus Few /HPF 12/04/16 11:25 Urine Osmolality 419 Mosm/kg 12/04/16 11:25 Urine Creatinine 29.5 mg/dL (0.1-20.0) H 12/04/16 11:25 Protein/Creatinin Ratio 1.12 12/04/16 11:25 Urine Sodium 26 mEq/L 12/04/16 11:25 Urine Total Protein 33 mg/dL (5-11.8) H 12/04/16 11:25 Urine Opiates Screen Presumptive negative 12/04/16 11:25 Urine Methadone Screen Presumptive negative 12/04/16 11:25 Ur Barbiturates Screen Presumptive negative 12/04/16 11:25 Ur Phencyclidine Scrn Presumptive negative 12/04/16 11:25 Ur Amphetamines Screen Presumptive negative 12/04/16 11:25 U Benzodiazepines Scrn Presumptive negative 12/04/16 11:25 Urine Cocaine Screen Presumptive negative 12/04/16 11:25 U Marijuana (THC) Screen Presumptive positive 12/04/16 11:25 Drugs of Abuse Note Disclamer 12/04/16 11:25 Hep Bs Antigen Non-reactive (Negative) 12/09/16 13:27 Hepatitis C Antibody Non-reactive (NonReactive) 12/09/16 13:27 Schistocytes Smear None seen 12/09/16 11:29 Blood Type O POSITIVE 12/08/16 08:46 Antibody Screen TNR 12/08/16 08:46 ISAIAH Antibody Screen Negative 12/08/16 08:46 Crossmatch See Detail 12/08/16 08:46
[2016-12-09 15:00] LABS: Reticulocyte % 0.23 % (0.78-2.58)
[2016-12-09 15:06] LABS: HIV-1 Antigen p24 Non React (Non React); HIVR-1/2 Ab Non React (Non React)
--- NOTE | 2016-12-09 18:23 | Progress Note ---
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: D Qualified Code(s): E10.11 - Type 1 diabetes mellitus with ketoacidosis with coma Plan to address problem: switched sq insulin (2) Acute hypernatremia Current Visit: No Status: Acute Plan to address problem: cont free water flushes via NGT, will adjust as needed (3) Acute kidney failure with tubular necrosis Current Visit: No Status: Acute Plan to address problem: secondary to ischemic ATN from shock HD again today for clearance and volume removal will assess dialysis needs daily, no indication today will monitor signs for renal recovery, currently oliguric strict I&O daily weight renal diet Subjective Date of service: 12/09/16 Principal diagnosis: Severe Sepsis; DKA, cardiac arrest Interval history: was extubated this AM, c/o sore throat Objective - Vital Signs Vital signs: Vital Signs - 12hr 12/09/16 12/09/16 12/09/16 06:30 07:00 07:30 Temperature Pulse Rate 101 H 103 H 103 H Pulse Rate [ From Monitor] Respiratory 21 20 20 Rate Blood Pressure 104/74 109/76 114/78 O2 Sat by Pulse 92 58 L 67 L Oximetry 12/09/16 12/09/16 12/09/16 08:00 08:10 08:30 Temperature 98.2 F Pulse Rate 103 H 105 H 108 H Pulse Rate [ 122 H From Monitor] Respiratory 19 10 L 13 Rate Blood Pressure 112/71 105/71 112/73 O2 Sat by Pulse 95 100 100 Oximetry 12/09/16 12/09/16 12/09/16 09:00 09:30 10:00 Temperature Pulse Rate 106 H 103 H 103 H Pulse Rate [ From Monitor] Respiratory 20 10 L 13 Rate Blood Pressure 117/73 114/66 112/76 O2 Sat by Pulse 100 100 100 Oximetry 12/09/16 12/09/16 12/09/16 10:30 11:00 11:30 Temperature Pulse Rate 110 H 112 H 108 H Pulse Rate [ From Monitor] Respiratory 20 16 19 Rate Blood Pressure 126/80 131/84 128/84 O2 Sat by Pulse 100 100 100 Oximetry 12/09/16 12/09/16 12/09/16 12:00 12:27 12:30 Temperature 97.1 F L Pulse Rate 120 H 110 H Pulse Rate [ From Monitor] Respiratory 17 26 H Rate Blood Pressure 143/78 142/91 O2 Sat by Pulse 99 91 Oximetry 12/09/16 12/09/16 12/09/16 13:00 13:30 14:00 Temperature Pulse Rate 109 H 109 H 112 H Pulse Rate [ From Monitor] Respiratory 28 H 21 16 Rate Blood Pressure 128/84 131/86 123/82 O2 Sat by Pulse 100 Oximetry 12/09/16 12/09/16 12/09/16 14:42 15:00 15:30 Temperature Pulse Rate 109 H 112 H 113 H Pulse Rate [ From Monitor] Respiratory 14 17 19 Rate Blood Pressure 122/78 129/78 127/75 O2 Sat by Pulse 100 100 100 Oximetry 12/09/16 12/09/16 12/09/16 16:00 16:30 16:50 Temperature 97.9 F 97.9 F Pulse Rate 113 H 115 H 120 H Pulse Rate [ 120 H From Monitor] Respiratory 22 30 H 19 Rate Blood Pressure 120/87 121/84 121/84 O2 Sat by Pulse 100 100 100 Oximetry 12/09/16 12/09/16 17:00 17:15 Temperature 98.3 F Pulse Rate 118 H 117 H Pulse Rate [ From Monitor] Respiratory 16 20 Rate Blood Pressure 121/83 120/82 O2 Sat by Pulse 98 100 Oximetry - General Appearance General appearance: cachectic EENT: ATNC, PERRL, mucous membranes dry Neck: no JVD, no carotid bruit Respiratory: Present: Decreased Breath Sounds Cardiology: regular, S1S2 Gastrointestinal: normoactive bowel sounds Integumentary: no rash, warm and dry Neurologic: no focal deficit, no asterixis Musculoskeletal: other (no edema in BLE) Psychiatric: cooperative - Lab 12/09/16 Unknown 12/09/16 06:00 Most recent lab results Calcium 9.2 mg/dL (8.4-10.2) 12/09/16 06:00 Phosphorus 2.00 mg/dL (2.5-4.5) L 12/09/16 06:00 Magnesium 1.80 mg/dL (1.7-2.3) 12/09/16 05:36 Urine Creatinine 29.5 mg/dL (0.1-20.0) H 12/04/16 11:25 Urine Sodium 26 mEq/L 12/04/16 11:25 Urine Total Protein 33 mg/dL (5-11.8) H 12/04/16 11:25
[2016-12-10] MEDS: NOVOLOG SUB-Q SCH ×3 (03:11→13:46)
[2016-12-10] MEDS: MERREM 1,000 MG in NACL 0.9% 100 ML IV SCH ×2 (03:11→13:37)
[2016-12-10] MEDS: MORPHINE IV PRN ×2 (03:16→13:46)
--- NOTE | 2016-12-10 07:41 | XRay Report ---
Single view chest: Compared to 12/09/16. History: Follow respiratory failure. Findings: Normal cardiomediastinal silhouette. Trachea is midline. Tip of NG tube in stomach. The endotracheal tube has been removed. Stable left PICC line. Consolidation right upper lobe without interval change. Next Impression: Consolidation right upper lobe without interval change.
[2016-12-10] MEDS: REGLAN IV SCH ×2 (08:00→16:00)
--- NOTE | 2016-12-10 08:19 | Progress Note ---
Assessment and Plan - Patient Problems (1) Severe sepsis Current Visit: Yes Status: Acute Plan to address problem: Continue Meropenem. Will continue to monitor clinically for new issues. (2) Acute respiratory failure with hypoxemia Current Visit: No Status: Acute Plan to address problem: Per above with treatment of Zosyn-resistant Pseudomonas. (3) Acute renal failure Current Visit: No Status: Acute Qualifiers: Acute renal failure type: A Plan to address problem: Antibiotic is renally-adjusted. Subjective Date of service: 12/10/16 Principal diagnosis: Severe Sepsis; DKA, cardiac arrest Interval history: Patient is now extubated. Clinically improving. Remains afebrile. Objective - Constitutional Vitals: Vital Signs Temp Pulse Resp BP Pulse Ox 97.5 F L 105 H 27 H 88/50 98 12/10/16 07:59 12/10/16 06:00 12/10/16 06:00 12/10/16 06:00 12/10/16 07:55 Temperature -Last 24 Hours Temperature 97.5 F Temperature 98.5 F Temperature 98.0 F Temperature 98.1 F Temperature 98.3 F Temperature 97.9 F Temperature 97.9 F Temperature 97.1 F General appearance: Present: no acute distress, other (O2 sat 98% on room air ( nasal cannula not in place)) - EENT Eyes: no scleral icterus, no conjunctival injection ENT: other (NG tube in place) - Neck Neck: supple - Respiratory Respiratory effort: normal Respiratory: negative: diminished, rales, wheezing - Cardiovascular Rhythm: regular Heart Sounds: Present: S1 & S2 Extremities: No edema - Gastrointestinal General gastrointestinal: Present: soft, non-tender, non-distended - Integumentary Integumentary: clear, warm, dry, no rash - Neurologic Neurologic: CNII-XII intact, moves all extremities - Psychiatric Psychiatric: appropriate mood/affect - Labs CBC & Chem 7: 12/10/16 09:55 12/09/16 06:00 Labs: Abnormal lab results 12/08/16 12/09/16 12/09/16 Range/Units 08:46 11:29 11:59 Percent Retic 0.23 L (0.78-2.58) % POC ABG pH (7.35-7.45) POC ABG pO2 (80-105) POC Glucose 254 H (70-105) Crossmatch See Detail 12/09/16 12/09/16 12/09/16 Range/Units 12:02 16:28 23:27 Percent Retic (0.78-2.58) % POC ABG pH 7.326 L (7.35-7.45) POC ABG pO2 115 H (80-105) POC Glucose 199 H 247 H (70-105) Crossmatch 12/10/16 Range/Units 05:36 Percent Retic (0.78-2.58) % POC ABG pH (7.35-7.45) POC ABG pO2 (80-105) POC Glucose 248 H (70-105) Crossmatch Microbiology 12/05/16 05:19 Peripheral/Venous Blood Culture - Final NO GROWTH AFTER 5 DAYS 12/05/16 04:44 Peripheral/Venous Blood Culture - Final NO GROWTH AFTER 5 DAYS 12/03/16 23:20 Peripheral/Venous Blood Culture - Final Coag Negative Staphylococcus 12/06/16 21:55 Tracheal Aspirate Sputum Culture - Final Pseudomonas Aeruginosa 12/03/16 23:20 Peripheral/Venous Blood Culture - Final NO GROWTH AFTER 5 DAYS 12/04/16 01:05 Tracheal Aspirate Sputum Culture - Final - Imaging and cardiology Chest x-ray: report reviewed (Consolidation RUL without interval change)
--- NOTE | 2016-12-10 08:42 | Progress Note ---
Assessment and Plan Acute respiratory failure vent weaning per pulmonary Cardiac arrest PEA arrest-->V. fib/?torsades-->shocked twice, received amiodarone 300 mg amiodarone gtt discontinued Echo 11/2016: EF 40-45%, repeat echo EF 40-45% Abnormal EKG/ST elevation Given pt.'s condition, resolution of ST elevation and recent subarachnoid bleed pt. not a candidate for cardiac cath Hypotension pressors weaned off Nstemi type 2 Cardiomyopathy EF 40-45% consider beta zoila if BP can tolerate no ACEI/ARB due to CKD DKA Hyperkalemia Acute on chronic renal failure Anemia Recent subarachnoid hemorrhage Altered mental status The patient has been seen in conjunction with Dr. Camargo who agrees with the assessment and plan of care. Subjective Date of service: 12/10/16 Principal diagnosis: Severe Sepsis; DKA, cardiac arrest Interval history: The patient is resting in bed. She has been extubated and complains of a sore throat. No chest pain or shortness of breath. Sinus rhythm on the monitor. Objective Last Vital Signs Temp 97.5 F L 12/10/16 07:59 Pulse 101 H 12/10/16 08:00 Resp 19 12/10/16 08:00 BP 109/72 12/10/16 08:00 Pulse Ox 95 12/10/16 08:00 - Physical Examination General: No Apparent Distress HEENT: Positive: Normocephaly Neck: Positive: neck supple, trachea midline Cardiac: Positive: Reg Rate and Rhythm, S1/S2 Lungs: Positive: clear to auscultation Neuro: Positive: Grossly Intact Abdomen: Positive: Soft Skin: Negative: Rash Extremities: Present: normal. Absent: edema - Imaging and Cardiology Echo: report reviewed (11/2016: EF 40-45% repeat echo EF 40-45%) - Telemetry EKG Rhythm: Sinus Rhythm
--- NOTE | 2016-12-10 09:12 | Progress Note ---
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 [employer] or [employer] principal insulin use: D Qualified Code(s): E10.10 - Type 1 diabetes mellitus with ketoacidosis without coma Plan to address problem: resolved, switched to SQ insulin (2) Acute hypernatremia Current Visit: No Status: Acute Plan to address problem: cont free water flushes via NGT, will adjust as needed, labs are pending this AM (3) Acute kidney failure with tubular necrosis Current Visit: No Status: Acute Plan to address problem: secondary to ischemic ATN from shock labs are pending this AM will assess dialysis needs daily, no indication today will monitor signs for renal recovery, cont to be oliguric strict I&O daily weight renal diet Subjective Date of service: 12/10/16 Principal diagnosis: Severe Sepsis; DKA, cardiac arrest Interval history: c/o thirst and dry mouth Objective - Vital Signs Vital signs: Vital Signs - 12hr 12/09/16 12/09/16 12/09/16 21:30 22:00 22:30 Temperature Pulse Rate 110 H 109 H 113 H Respiratory 15 16 16 Rate Blood Pressure 111/78 115/73 140/90 O2 Sat by Pulse 98 96 96 Oximetry 12/09/16 12/09/16 12/09/16 23:00 23:30 23:57 Temperature 98.0 F Pulse Rate 114 H 111 H Respiratory 15 18 Rate Blood Pressure 127/79 124/77 O2 Sat by Pulse 99 99 Oximetry 12/10/16 12/10/16 12/10/16 00:00 00:30 01:00 Temperature Pulse Rate 114 H 112 H 113 H Respiratory 17 27 H 31 H Rate Blood Pressure 122/74 116/67 113/65 O2 Sat by Pulse 98 99 93 Oximetry 12/10/16 12/10/16 12/10/16 01:30 02:00 02:30 Temperature Pulse Rate 115 H 114 H 112 H Respiratory 22 22 32 H Rate Blood Pressure 94/51 104/59 108/67 O2 Sat by Pulse 94 97 96 Oximetry 12/10/16 12/10/16 12/10/16 03:00 03:30 04:00 Temperature 98.5 F Pulse Rate 115 H 111 H 117 H Respiratory 15 29 H 14 Rate Blood Pressure 137/94 102/55 101/54 O2 Sat by Pulse 98 98 Oximetry 12/10/16 12/10/16 12/10/16 04:30 05:00 05:30 Temperature Pulse Rate 104 H 107 H 100 H Respiratory 28 H 21 16 Rate Blood Pressure 96/50 103/61 107/66 O2 Sat by Pulse 99 98 100 Oximetry 12/10/16 12/10/16 12/10/16 06:00 06:30 07:00 Temperature Pulse Rate 105 H 104 H 100 H Respiratory 27 H 23 25 H Rate Blood Pressure 88/50 87/52 98/57 O2 Sat by Pulse 97 97 Oximetry 12/10/16 12/10/16 12/10/16 07:30 07:55 07:59 Temperature 97.5 F L Pulse Rate 103 H Respiratory 10 L Rate Blood Pressure 108/66 O2 Sat by Pulse 97 98 Oximetry 12/10/16 08:00 Temperature Pulse Rate 101 H Respiratory 19 Rate Blood Pressure 109/72 O2 Sat by Pulse 98 Oximetry - General Appearance General appearance: cachectic EENT: ATNC, PERRL, mucous membranes dry Neck: no JVD, no carotid bruit Respiratory: Present: Clear to Ascultation Cardiology: regular, S1S2 Gastrointestinal: normoactive bowel sounds Integumentary: no rash, warm and dry Neurologic: no focal deficit, no asterixis Musculoskeletal: other (no edema in BLE) Psychiatric: cooperative - Lab 12/09/16 Unknown 12/09/16 06:00 Most recent lab results Calcium 9.2 mg/dL (8.4-10.2) 12/09/16 06:00 Phosphorus 2.00 mg/dL (2.5-4.5) L 12/09/16 06:00 Magnesium 1.80 mg/dL (1.7-2.3) 12/09/16 05:36 Urine Creatinine 29.5 mg/dL (0.1-20.0) H 12/04/16 11:25 Urine Sodium 26 mEq/L 12/04/16 11:25 Urine Total Protein 33 mg/dL (5-11.8) H 12/04/16 11:25
[2016-12-10 10:23] LABS: Hematocrit 29.5 % (30.3-42.9); Hemoglobin 9.6 gm/dl (10.1-14.3); Mean Corpuscular HGB Conc 33 % (30-34); Mean Corpuscular Hemoglobin 28 pg (28-32); Mean Corpuscular Volume 87 fl (79-97); Platelet Count 102 K/mm3 (140-440); Red Blood Count 3.37 M/mm3 (3.65-5.03); Red Cell Distribution Width 16.3 % (13.2-15.2)
[2016-12-10 10:28] LABS: White Blood Count 21.2 K/mm3 (4.5-11.0)
[2016-12-10 10:52] LABS: BUN/Creatinine Ratio 8.8; Calcium 8.6 mg/dL (8.4-10.2); Chloride 107.4 mmol/L (98-107); Potassium 3.9 mmol/L (3.6-5.0)
--- NOTE | 2016-12-10 13:10 | Progress Note ---
Assessment and Plan - Patient Problems (1) Severe sepsis Current Visit: Yes Status: Deleted (2) Cardiac arrest Current Visit: Yes Status: Acute (3) Acute renal failure Current Visit: No Status: Acute Qualifiers: Acute renal failure type: A (4) Acute respiratory failure with hypoxemia Current Visit: No Status: Acute (5) DKA (diabetic ketoacidoses) Current Visit: Yes Status: Acute Qualifiers: Diabetes mellitus type: type 1 Diabetes mellitus complication detail: without coma Diabetes mellitus halfway insulin use: D Qualified Code(s): E10.10 - Type 1 diabetes mellitus with ketoacidosis without coma (6) Anemia Current Visit: Yes Status: Acute Qualifiers: Anemia type: A Iron deficiency anemia type: I Vitamin B12 deficiency anemia type: V Folate deficiency anemia type: F Bone marrow failure anemia type: B Hemolytic anemia type: H Other causes of anemia: O Chronic kidney disease stage: C (7) Discharge planning issues Current Visit: No Status: Acute Subjective Date of service: 12/10/16 Principal diagnosis: Severe Sepsis; DKA, cardiac arrest Interval history: Seen and examined at bedside; 24 hour events reviewed; nursing and respiratory care staff consulted; no adverse overnight events reported to me; resting peacefully; no new issues respiratory-prince; still making some urine and hopefully possible renal recovery Objective Vital Signs - 12hr 12/10/16 12/10/16 12/10/16 01:30 02:00 02:30 Temperature Pulse Rate 115 H 114 H 112 H Respiratory 22 22 32 H Rate Blood Pressure 94/51 104/59 108/67 O2 Sat by Pulse 94 97 96 Oximetry 12/10/16 12/10/16 12/10/16 03:00 03:30 04:00 Temperature 98.5 F Pulse Rate 115 H 111 H 117 H Respiratory 15 29 H 14 Rate Blood Pressure 137/94 102/55 101/54 O2 Sat by Pulse 98 98 Oximetry 12/10/16 12/10/16 12/10/16 04:30 05:00 05:30 Temperature Pulse Rate 104 H 107 H 100 H Respiratory 28 H 21 16 Rate Blood Pressure 96/50 103/61 107/66 O2 Sat by Pulse 99 98 100 Oximetry 12/10/16 12/10/16 12/10/16 06:00 06:30 07:00 Temperature Pulse Rate 105 H 104 H 100 H Respiratory 27 H 23 25 H Rate Blood Pressure 88/50 87/52 98/57 O2 Sat by Pulse 97 97 Oximetry 12/10/16 12/10/16 12/10/16 07:30 07:55 07:59 Temperature 97.5 F L Pulse Rate 103 H Respiratory 10 L Rate Blood Pressure 108/66 O2 Sat by Pulse 97 98 Oximetry 12/10/16 12/10/16 12/10/16 08:00 08:30 09:00 Temperature Pulse Rate 101 H 109 H Respiratory 19 16 Rate Blood Pressure 109/72 127/83 118/79 O2 Sat by Pulse 98 96 96 Oximetry 12/10/16 12/10/16 12/10/16 09:30 10:00 10:30 Temperature Pulse Rate 103 H 103 H 103 H Respiratory 13 22 26 H Rate Blood Pressure 121/77 124/77 116/70 O2 Sat by Pulse 81 L 99 99 Oximetry 12/10/16 12/10/16 11:00 12:00 Temperature 97.6 F Pulse Rate 109 H Respiratory 17 Rate Blood Pressure 130/79 O2 Sat by Pulse 93 Oximetry Constitutional: alert, appears uncomfortable, other Eyes: non-icteric ENT: oropharynx moist Neck: supple, no lymphadenopathy Effort: mildly labored Ascultation: Bilateral: diminished breath sounds, rales Cardiovascular: regular rate and rhythm, other (SVT) Gastrointestinal: normoactive bowel sounds, soft, non-tender, non-distended Integumentary: normal Extremities: no cyanosis, no edema, pulses normal, no ischemia or petechiae Neurologic: normal mental status, non-focal exam, pupils equal and round, motor strength normal and, other (sedated) Psychiatric: other (unable to assess) CBC and BMP: 01/02/17 05:10 01/02/17 05:10 ABG, PT/INR, D-dimer: ABG POC ABG pH 7.326 (7.35-7.45) L 12/09/16 12:02 POC ABG pCO2 37.7 (35-45) 12/09/16 12:02 POC ABG pO2 115 (80-105) H 12/09/16 12:02 POC ABG HCO3 19.7 12/09/16 12:02 POC ABG Total CO2 21 12/09/16 12:02 POC ABG O2 Sat 98 12/09/16 12:02 PT/INR, D-dimer PT 15.3 Sec. (12.2-14.9) H 12/08/16 19:00 INR 1.22 (0.87-1.13) H 12/08/16 19:00 D-Dimer 5507.36 ng/mlDDU (0-234) H 12/08/16 19:00 Abnormal lab findings: Abnormal Labs 12/04/16 12/04/16 12/04/16 01:19 01:36 02:21 WBC RBC Hgb Hct MCV MCHC RDW Plt Count Seg Neuts % (Manual) Lymphocytes % (Manual) Nucleated RBC % Lymphocytes # (Manual) Percent Retic PT INR Fibrinogen D-Dimer POC ABG pH 6.759 L POC ABG pCO2 POC ABG pO2 437 H Sodium Potassium Chloride Carbon Dioxide BUN Creatinine Glucose POC Glucose > 500 H Lactic Acid Calcium Phosphorus 15.70 H Magnesium 4.30 H Total Bilirubin Direct Bilirubin AST ALT Alkaline Phosphatase Lactate Dehydrogenase CK-MB (CK-2) Troponin T C-Reactive Protein Total Protein Albumin Triglycerides Cholesterol HDL Cholesterol Urine Creatinine Urine Total Protein Crossmatch 12/04/16 12/04/16 12/04/16 03:55 04:00 05:11 WBC RBC Hgb Hct MCV MCHC RDW Plt Count Seg Neuts % (Manual) Lymphocytes % (Manual) Nucleated RBC % Lymphocytes # (Manual) Percent Retic PT INR Fibrinogen D-Dimer POC ABG pH POC ABG pCO2 POC ABG pO2 Sodium Potassium Chloride 91.4 L Carbon Dioxide 8 L* BUN 55 H Creatinine 2.8 H Glucose 1610 H* POC Glucose > 500 H > 500 H Lactic Acid Calcium Phosphorus Magnesium Total Bilirubin Direct Bilirubin AST ALT Alkaline Phosphatase Lactate Dehydrogenase CK-MB (CK-2) Troponin T C-Reactive Protein Total Protein Albumin Triglycerides Cholesterol HDL Cholesterol Urine Creatinine Urine Total Protein Crossmatch 12/04/16 12/04/16 12/04/16 05:40 05:54 06:58 WBC RBC Hgb Hct MCV MCHC RDW Plt Count Seg Neuts % (Manual) Lymphocytes % (Manual) Nucleated RBC % Lymphocytes # (Manual) Percent Retic PT INR Fibrinogen D-Dimer POC ABG pH 7.154 L POC ABG pCO2 27.5 L POC ABG pO2 111 H Sodium Potassium Chloride Carbon Dioxide BUN Creatinine Glucose POC Glucose > 500 H > 500 H Lactic Acid Calcium Phosphorus Magnesium Total Bilirubin Direct Bilirubin AST ALT Alkaline Phosphatase Lactate Dehydrogenase CK-MB (CK-2) Troponin T C-Reactive Protein Total Protein Albumin Triglycerides Cholesterol HDL Cholesterol Urine Creatinine Urine Total Protein Crossmatch 12/04/16 12/04/16 12/04/16 07:49 07:55 07:55 WBC RBC Hgb Hct MCV MCHC RDW Plt Count Seg Neuts % (Manual) Lymphocytes % (Manual) Nucleated RBC % Lymphocytes # (Manual) Percent Retic PT INR Fibrinogen D-Dimer POC ABG pH POC ABG pCO2 POC ABG pO2 Sodium Potassium 3.3 L Chloride Carbon Dioxide 9 L* BUN 53 H Creatinine 2.9 H Glucose 1229 H* POC Glucose > 500 H Lactic Acid Calcium Phosphorus Magnesium Total Bilirubin Direct Bilirubin AST ALT Alkaline Phosphatase Lactate Dehydrogenase CK-MB (CK-2) Troponin T 0.111 H* D C-Reactive Protein Total Protein Albumin Triglycerides 570 H Cholesterol 221 H HDL Cholesterol 37 L Urine Creatinine Urine Total Protein Crossmatch 12/04/16 12/04/16 12/04/16 07:55 09:55 09:55 WBC RBC 2.90 L Hgb 8.5 L Hct 30.2 L D MCV 105 H D MCHC 28 L RDW 19.2 H Plt Count Seg Neuts % (Manual) Lymphocytes % (Manual) 11.0 L Nucleated RBC % Lymphocytes # (Manual) 0.6 L Percent Retic PT INR Fibrinogen D-Dimer POC ABG pH POC ABG pCO2 POC ABG pO2 Sodium Potassium 3.1 L Chloride Carbon Dioxide 7 L* BUN 51 H Creatinine 3.2 H Glucose 969 H* POC Glucose Lactic Acid Calcium 10.4 H D Phosphorus Magnesium Total Bilirubin Direct Bilirubin AST ALT Alkaline Phosphatase Lactate Dehydrogenase CK-MB (CK-2) 4.6 H Troponin T 0.140 H* D C-Reactive Protein Total Protein Albumin Triglycerides Cholesterol HDL Cholesterol Urine Creatinine Urine Total Protein Crossmatch 12/04/16 12/04/16 12/04/16 09:55 10:37 11:25 WBC RBC Hgb Hct MCV MCHC RDW Plt Count Seg Neuts % (Manual) Lymphocytes % (Manual) Nucleated RBC % Lymphocytes # (Manual) Percent Retic PT INR Fibrinogen D-Dimer POC ABG pH 7.215 L POC ABG pCO2 18.8 L POC ABG pO2 193 H Sodium Potassium Chloride Carbon Dioxide BUN Creatinine Glucose POC Glucose Lactic Acid Calcium Phosphorus Magnesium 3.70 H Total Bilirubin Direct Bilirubin AST ALT Alkaline Phosphatase Lactate Dehydrogenase CK-MB (CK-2) Troponin T C-Reactive Protein Total Protein Albumin Triglycerides Cholesterol HDL Cholesterol Urine Creatinine 29.5 H Urine Total Protein 33 H Crossmatch 12/04/16 12/04/16 12/04/16 12:00 12:48 13:00 WBC RBC Hgb Hct MCV MCHC RDW Plt Count Seg Neuts % (Manual) Lymphocytes % (Manual) Nucleated RBC % Lymphocytes # (Manual) Percent Retic PT INR Fibrinogen D-Dimer POC ABG pH POC ABG pCO2 POC ABG pO2 Sodium 149 H 150 H Potassium 3.2 L 3.2 L Chloride 109.1 H Carbon Dioxide 8 L* 8 L* BUN 52 H 49 H Creatinine 3.4 H 3.1 H Glucose 723 H* 574 H* POC Glucose Lactic Acid 18.80 H* Calcium Phosphorus Magnesium Total Bilirubin Direct Bilirubin AST ALT Alkaline Phosphatase Lactate Dehydrogenase CK-MB (CK-2) Troponin T C-Reactive Protein Total Protein Albumin Triglycerides Cholesterol HDL Cholesterol Urine Creatinine Urine Total Protein Crossmatch 12/04/16 12/04/16 12/04/16 13:01 14:41 16:06 WBC RBC Hgb Hct MCV MCHC RDW Plt Count Seg Neuts % (Manual) Lymphocytes % (Manual) Nucleated RBC % Lymphocytes # (Manual) Percent Retic PT INR Fibrinogen D-Dimer POC ABG pH POC ABG pCO2 POC ABG pO2 Sodium 151 H Potassium 3.2 L Chloride 108.1 H Carbon Dioxide 10 L BUN 49 H Creatinine 3.0 H Glucose 383 H POC Glucose 292 H Lactic Acid Calcium Phosphorus Magnesium Total Bilirubin Direct Bilirubin AST ALT Alkaline Phosphatase Lactate Dehydrogenase CK-MB (CK-2) Troponin T C-Reactive Protein 3.50 H Total Protein Albumin Triglycerides Cholesterol HDL Cholesterol Urine Creatinine Urine Total Protein Crossmatch 12/04/16 12/04/16 12/04/16 17:15 17:25 18:07 WBC RBC Hgb Hct MCV MCHC RDW Plt Count Seg Neuts % (Manual) Lymphocytes % (Manual) Nucleated RBC % Lymphocytes # (Manual) Percent Retic PT INR Fibrinogen D-Dimer POC ABG pH 7.255 L POC ABG pCO2 16.9 L POC ABG pO2 169 H Sodium Potassium Chloride Carbon Dioxide BUN Creatinine Glucose POC Glucose 246 H Lactic Acid 18.50 H* Calcium Phosphorus Magnesium Total Bilirubin Direct Bilirubin AST ALT Alkaline Phosphatase Lactate Dehydrogenase CK-MB (CK-2) Troponin T C-Reactive Protein Total Protein Albumin Triglycerides Cholesterol HDL Cholesterol Urine Creatinine Urine Total Protein Crossmatch 12/04/16 12/04/16 12/04/16 19:34 20:31 21:15 WBC RBC Hgb Hct MCV MCHC RDW Plt Count Seg Neuts % (Manual) Lymphocytes % (Manual) Nucleated RBC % Lymphocytes # (Manual) Percent Retic PT INR Fibrinogen D-Dimer POC ABG pH POC ABG pCO2 POC ABG pO2 Sodium Potassium Chloride Carbon Dioxide BUN Creatinine Glucose POC Glucose 189 H 126 H 139 H Lactic Acid Calcium Phosphorus Magnesium Total Bilirubin Direct Bilirubin AST ALT Alkaline Phosphatase Lactate Dehydrogenase CK-MB (CK-2) Troponin T C-Reactive Protein Total Protein Albumin Triglycerides Cholesterol HDL Cholesterol Urine Creatinine Urine Total Protein Crossmatch 12/04/16 12/04/16 12/04/16 21:25 22:37 23:35 WBC RBC Hgb Hct MCV MCHC RDW Plt Count Seg Neuts % (Manual) Lymphocytes % (Manual) Nucleated RBC % Lymphocytes # (Manual) Percent Retic PT INR Fibrinogen D-Dimer POC ABG pH 7.294 L POC ABG pCO2 16.7 L POC ABG pO2 169 H Sodium Potassium Chloride Carbon Dioxide BUN Creatinine Glucose POC Glucose 131 H 106 H Lactic Acid Calcium Phosphorus Magnesium Total Bilirubin Direct Bilirubin AST ALT Alkaline Phosphatase Lactate Dehydrogenase CK-MB (CK-2) Troponin T C-Reactive Protein Total Protein Albumin Triglycerides Cholesterol HDL Cholesterol Urine Creatinine Urine Total Protein Crossmatch 12/05/16 12/05/16 12/05/16 02:40 02:50 02:50 WBC RBC Hgb Hct MCV MCHC RDW Plt Count Seg Neuts % (Manual) Lymphocytes % (Manual) Nucleated RBC % Lymphocytes # (Manual) Percent Retic PT INR Fibrinogen D-Dimer POC ABG pH POC ABG pCO2 POC ABG pO2 Sodium 151 H Potassium Chloride 113.8 H Carbon Dioxide 12 L BUN 46 H Creatinine 3.2 H Glucose 165 H POC Glucose 109 H Lactic Acid 9.80 H* Calcium 8.3 L Phosphorus Magnesium Total Bilirubin Direct Bilirubin AST ALT Alkaline Phosphatase Lactate Dehydrogenase CK-MB (CK-2) Troponin T C-Reactive Protein Total Protein Albumin Triglycerides Cholesterol HDL Cholesterol Urine Creatinine Urine Total Protein Crossmatch 12/05/16 12/05/16 12/05/16 04:01 04:30 04:30 WBC 19.1 H RBC 2.91 L Hgb 8.0 L Hct 25.4 L MCV MCHC RDW 17.8 H Plt Count Seg Neuts % (Manual) 17.0 L Lymphocytes % (Manual) 7.0 L Nucleated RBC % 3.0 H Lymphocytes # (Manual) Percent Retic PT INR Fibrinogen D-Dimer POC ABG pH POC ABG pCO2 POC ABG pO2 Sodium 152 H Potassium Chloride 113.5 H Carbon Dioxide 12 L BUN 47 H Creatinine 3.2 H Glucose 133 H POC Glucose 179 H Lactic Acid Calcium 8.3 L Phosphorus 1.00 L D Magnesium Total Bilirubin Direct Bilirubin AST ALT Alkaline Phosphatase Lactate Dehydrogenase CK-MB (CK-2) Troponin T C-Reactive Protein Total Protein Albumin Triglycerides Cholesterol HDL Cholesterol Urine Creatinine Urine Total Protein Crossmatch 12/05/16 12/05/16 12/05/16 05:32 08:01 08:48 WBC RBC Hgb Hct MCV MCHC RDW Plt Count Seg Neuts % (Manual) Lymphocytes % (Manual) Nucleated RBC % Lymphocytes # (Manual) Percent Retic PT INR Fibrinogen D-Dimer POC ABG pH POC ABG pCO2 17.6 L POC ABG pO2 62 L Sodium Potassium Chloride Carbon Dioxide BUN Creatinine Glucose POC Glucose 126 H 130 H Lactic Acid Calcium Phosphorus Magnesium Total Bilirubin Direct Bilirubin AST ALT Alkaline Phosphatase Lactate Dehydrogenase CK-MB (CK-2) Troponin T C-Reactive Protein Total Protein Albumin Triglycerides Cholesterol HDL Cholesterol Urine Creatinine Urine Total Protein Crossmatch 12/05/16 12/05/16 12/05/16 08:54 12:01 15:15 WBC RBC Hgb Hct MCV MCHC RDW Plt Count Seg Neuts % (Manual) Lymphocytes % (Manual) Nucleated RBC % Lymphocytes # (Manual) Percent Retic PT INR Fibrinogen D-Dimer POC ABG pH POC ABG pCO2 POC ABG pO2 Sodium Potassium Chloride Carbon Dioxide BUN Creatinine Glucose POC Glucose 157 H 117 H 166 H Lactic Acid Calcium Phosphorus Magnesium Total Bilirubin Direct Bilirubin AST ALT Alkaline Phosphatase Lactate Dehydrogenase CK-MB (CK-2) Troponin T C-Reactive Protein Total Protein Albumin Triglycerides Cholesterol HDL Cholesterol Urine Creatinine Urine Total Protein Crossmatch 12/05/16 12/05/16 12/05/16 16:10 16:55 17:08 WBC RBC Hgb Hct MCV MCHC RDW Plt Count Seg Neuts % (Manual) Lymphocytes % (Manual) Nucleated RBC % Lymphocytes # (Manual) Percent Retic PT INR Fibrinogen D-Dimer POC ABG pH POC ABG pCO2 POC ABG pO2 Sodium Potassium Chloride Carbon Dioxide BUN Creatinine Glucose POC Glucose 178 H 169 H Lactic Acid Calcium Phosphorus 5.00 H D Magnesium Total Bilirubin Direct Bilirubin AST ALT Alkaline Phosphatase Lactate Dehydrogenase CK-MB (CK-2) Troponin T C-Reactive Protein Total Protein Albumin Triglycerides Cholesterol HDL Cholesterol Urine Creatinine Urine Total Protein Crossmatch 12/05/16 12/05/16 12/05/16 18:08 18:51 20:04 WBC RBC Hgb Hct MCV MCHC RDW Plt Count Seg Neuts % (Manual) Lymphocytes % (Manual) Nucleated RBC % Lymphocytes # (Manual) Percent Retic PT INR Fibrinogen D-Dimer POC ABG pH POC ABG pCO2 POC ABG pO2 Sodium Potassium Chloride Carbon Dioxide BUN Creatinine Glucose POC Glucose 147 H 113 H 64 L Lactic Acid Calcium Phosphorus Magnesium Total Bilirubin Direct Bilirubin AST ALT Alkaline Phosphatase Lactate Dehydrogenase CK-MB (CK-2) Troponin T C-Reactive Protein Total Protein Albumin Triglycerides Cholesterol HDL Cholesterol Urine Creatinine Urine Total Protein Crossmatch 12/05/16 12/05/16 12/05/16 21:34 22:08 23:19 WBC RBC Hgb Hct MCV MCHC RDW Plt Count Seg Neuts % (Manual) Lymphocytes % (Manual) Nucleated RBC % Lymphocytes # (Manual) Percent Retic PT INR Fibrinogen D-Dimer POC ABG pH 7.303 L POC ABG pCO2 18.3 L POC ABG pO2 73 L Sodium Potassium Chloride Carbon Dioxide BUN Creatinine Glucose POC Glucose 141 H 200 H Lactic Acid Calcium Phosphorus Magnesium Total Bilirubin Direct Bilirubin AST ALT Alkaline Phosphatase Lactate Dehydrogenase CK-MB (CK-2) Troponin T C-Reactive Protein Total Protein Albumin Triglycerides Cholesterol HDL Cholesterol Urine Creatinine Urine Total Protein Crossmatch 12/06/16 12/06/16 12/06/16 00:01 01:09 02:00 WBC RBC Hgb Hct MCV MCHC RDW Plt Count Seg Neuts % (Manual) Lymphocytes % (Manual) Nucleated RBC % Lymphocytes # (Manual) Percent Retic PT INR Fibrinogen D-Dimer POC ABG pH POC ABG pCO2 POC ABG pO2 Sodium Potassium Chloride Carbon Dioxide BUN Creatinine Glucose POC Glucose 211 H 116 H 57 L Lactic Acid Calcium Phosphorus Magnesium Total Bilirubin Direct Bilirubin AST ALT Alkaline Phosphatase Lactate Dehydrogenase CK-MB (CK-2) Troponin T C-Reactive Protein Total Protein Albumin Triglycerides Cholesterol HDL Cholesterol Urine Creatinine Urine Total Protein Crossmatch 12/06/16 12/06/16 12/06/16 04:14 04:50 04:50 WBC RBC 2.68 L Hgb 7.6 L Hct 23.2 L MCV MCHC RDW 18.9 H Plt Count Seg Neuts % (Manual) 32.0 L Lymphocytes % (Manual) Nucleated RBC % 3.0 H Lymphocytes # (Manual) 0.9 L Percent Retic PT INR Fibrinogen D-Dimer POC ABG pH POC ABG pCO2 POC ABG pO2 Sodium Potassium 5.8 H D Chloride 111.5 H Carbon Dioxide 11 L BUN 52 H Creatinine 3.8 H Glucose 186 H POC Glucose 133 H Lactic Acid Calcium 6.5 L D Phosphorus 5.80 H Magnesium Total Bilirubin Direct Bilirubin AST ALT Alkaline Phosphatase Lactate Dehydrogenase CK-MB (CK-2) Troponin T C-Reactive Protein Total Protein Albumin Triglycerides Cholesterol HDL Cholesterol Urine Creatinine Urine Total Protein Crossmatch 12/06/16 12/06/16 12/06/16 04:50 05:04 05:07 WBC RBC Hgb Hct MCV MCHC RDW Plt Count Seg Neuts % (Manual) Lymphocytes % (Manual) Nucleated RBC % Lymphocytes # (Manual) Percent Retic PT INR Fibrinogen D-Dimer POC ABG pH POC ABG pCO2 13.0 L POC ABG pO2 111 H Sodium Potassium Chloride Carbon Dioxide BUN Creatinine Glucose POC Glucose 127 H Lactic Acid 6.50 H* Calcium Phosphorus Magnesium Total Bilirubin Direct Bilirubin AST ALT Alkaline Phosphatase Lactate Dehydrogenase CK-MB (CK-2) Troponin T C-Reactive Protein Total Protein Albumin Triglycerides Cholesterol HDL Cholesterol Urine Creatinine Urine Total Protein Crossmatch 12/06/16 12/06/16 12/06/16 06:10 06:54 07:46 WBC RBC Hgb Hct MCV MCHC RDW Plt Count Seg Neuts % (Manual) Lymphocytes % (Manual) Nucleated RBC % Lymphocytes # (Manual) Percent Retic PT INR Fibrinogen D-Dimer POC ABG pH POC ABG pCO2 POC ABG pO2 Sodium Potassium Chloride Carbon Dioxide BUN Creatinine Glucose POC Glucose 219 H 237 H 158 H Lactic Acid Calcium Phosphorus Magnesium Total Bilirubin Direct Bilirubin AST ALT Alkaline Phosphatase Lactate Dehydrogenase CK-MB (CK-2) Troponin T C-Reactive Protein Total Protein Albumin Triglycerides Cholesterol HDL Cholesterol Urine Creatinine Urine Total Protein Crossmatch 12/06/16 12/06/16 12/06/16 08:55 10:27 11:58 WBC RBC Hgb Hct MCV MCHC RDW Plt Count Seg Neuts % (Manual) Lymphocytes % (Manual) Nucleated RBC % Lymphocytes # (Manual) Percent Retic PT INR Fibrinogen D-Dimer POC ABG pH POC ABG pCO2 POC ABG pO2 Sodium Potassium Chloride Carbon Dioxide BUN Creatinine Glucose POC Glucose 40 L 128 H 144 H Lactic Acid Calcium Phosphorus Magnesium Total Bilirubin Direct Bilirubin AST ALT Alkaline Phosphatase Lactate Dehydrogenase CK-MB (CK-2) Troponin T C-Reactive Protein Total Protein Albumin Triglycerides Cholesterol HDL Cholesterol Urine Creatinine Urine Total Protein Crossmatch 12/06/16 12/06/16 12/06/16 18:14 19:00 19:06 WBC RBC Hgb Hct MCV MCHC RDW Plt Count Seg Neuts % (Manual) Lymphocytes % (Manual) Nucleated RBC % Lymphocytes # (Manual) Percent Retic PT INR Fibrinogen D-Dimer POC ABG pH POC ABG pCO2 POC ABG pO2 Sodium 149 H Potassium 5.6 H Chloride 115.9 H Carbon Dioxide 13 L BUN 56 H Creatinine 4.3 H Glucose 124 H POC Glucose 55 L 148 H Lactic Acid Calcium 6.0 L Phosphorus Magnesium Total Bilirubin Direct Bilirubin AST ALT Alkaline Phosphatase Lactate Dehydrogenase CK-MB (CK-2) Troponin T C-Reactive Protein Total Protein Albumin Triglycerides Cholesterol HDL Cholesterol Urine Creatinine Urine Total Protein Crossmatch 12/06/16 12/06/16 12/07/16 21:24 21:51 02:32 WBC RBC Hgb Hct MCV MCHC RDW Plt Count Seg Neuts % (Manual) Lymphocytes % (Manual) Nucleated RBC % Lymphocytes # (Manual) Percent Retic PT INR Fibrinogen D-Dimer POC ABG pH POC ABG pCO2 17.0 L POC ABG pO2 142 H Sodium Potassium Chloride Carbon Dioxide BUN Creatinine Glucose POC Glucose 107 H 175 H Lactic Acid Calcium Phosphorus Magnesium Total Bilirubin Direct Bilirubin AST ALT Alkaline Phosphatase Lactate Dehydrogenase CK-MB (CK-2) Troponin T C-Reactive Protein Total Protein Albumin Triglycerides Cholesterol HDL Cholesterol Urine Creatinine Urine Total Protein Crossmatch 12/07/16 12/07/16 12/07/16 05:01 05:25 06:00 WBC RBC 2.52 L Hgb 7.1 L Hct 22.1 L MCV MCHC RDW 19.3 H Plt Count 90 L Seg Neuts % (Manual) 75.0 H Lymphocytes % (Manual) 11.0 L Nucleated RBC % Lymphocytes # (Manual) 0.7 L Percent Retic PT INR Fibrinogen D-Dimer POC ABG pH 7.300 L POC ABG pCO2 17.1 L POC ABG pO2 140 H Sodium Potassium Chloride Carbon Dioxide BUN Creatinine Glucose POC Glucose 279 H Lactic Acid Calcium Phosphorus Magnesium Total Bilirubin Direct Bilirubin AST ALT Alkaline Phosphatase Lactate Dehydrogenase CK-MB (CK-2) Troponin T C-Reactive Protein Total Protein Albumin Triglycerides Cholesterol HDL Cholesterol Urine Creatinine Urine Total Protein Crossmatch 12/07/16 12/07/16 12/07/16 06:00 06:00 07:30 WBC RBC Hgb Hct MCV MCHC RDW Plt Count Seg Neuts % (Manual) Lymphocytes % (Manual) Nucleated RBC % Lymphocytes # (Manual) Percent Retic PT INR Fibrinogen D-Dimer POC ABG pH POC ABG pCO2 POC ABG pO2 Sodium Potassium Chloride Carbon Dioxide BUN Creatinine Glucose POC Glucose Lactic Acid 6.90 H* Calcium Phosphorus 6.80 H Magnesium Total Bilirubin Direct Bilirubin AST ALT Alkaline Phosphatase Lactate Dehydrogenase CK-MB (CK-2) Troponin T C-Reactive Protein 39.40 H Total Protein Albumin Triglycerides Cholesterol HDL Cholesterol Urine Creatinine Urine Total Protein Crossmatch 12/07/16 12/07/16 12/07/16 08:40 10:53 14:31 WBC RBC Hgb Hct MCV MCHC RDW Plt Count Seg Neuts % (Manual) Lymphocytes % (Manual) Nucleated RBC % Lymphocytes # (Manual) Percent Retic PT INR Fibrinogen D-Dimer POC ABG pH POC ABG pCO2 POC ABG pO2 Sodium Potassium 7.0 H* D Chloride 112.4 H Carbon Dioxide 8 L* BUN 61 H Creatinine 5.1 H Glucose 213 H POC Glucose 353 H 52 L Lactic Acid Calcium 5.8 L* Phosphorus Magnesium Total Bilirubin Direct Bilirubin AST ALT Alkaline Phosphatase Lactate Dehydrogenase CK-MB (CK-2) Troponin T C-Reactive Protein Total Protein Albumin Triglycerides Cholesterol HDL Cholesterol Urine Creatinine Urine Total Protein Crossmatch 12/07/16 12/07/16 12/07/16 14:45 15:33 16:22 WBC RBC Hgb Hct MCV MCHC RDW Plt Count Seg Neuts % (Manual) Lymphocytes % (Manual) Nucleated RBC % Lymphocytes # (Manual) Percent Retic PT 17.5 H INR 1.44 H Fibrinogen D-Dimer POC ABG pH POC ABG pCO2 POC ABG pO2 Sodium Potassium Chloride Carbon Dioxide BUN Creatinine Glucose POC Glucose < 40 L 118 H Lactic Acid Calcium Phosphorus Magnesium Total Bilirubin Direct Bilirubin AST ALT Alkaline Phosphatase Lactate Dehydrogenase CK-MB (CK-2) Troponin T C-Reactive Protein Total Protein Albumin Triglycerides Cholesterol HDL Cholesterol Urine Creatinine Urine Total Protein Crossmatch 12/07/16 12/07/16 12/07/16 21:35 21:35 21:58 WBC RBC Hgb Hct MCV MCHC RDW Plt Count Seg Neuts % (Manual) Lymphocytes % (Manual) Nucleated RBC % Lymphocytes # (Manual) Percent Retic PT INR Fibrinogen D-Dimer POC ABG pH POC ABG pCO2 POC ABG pO2 Sodium 150 H Potassium 3.3 L D Chloride 111.4 H Carbon Dioxide 21 L D BUN 22 H Creatinine 2.6 H Glucose 23 L* POC Glucose < 40 L Lactic Acid Calcium Phosphorus Magnesium Total Bilirubin 1.40 H Direct Bilirubin 0.9 H AST 94 H ALT 142 H Alkaline Phosphatase 249 H Lactate Dehydrogenase CK-MB (CK-2) Troponin T C-Reactive Protein Total Protein 4.6 L D Albumin 2.1 L Triglycerides Cholesterol HDL Cholesterol Urine Creatinine Urine Total Protein Crossmatch 12/07/16 12/08/16 12/08/16 23:31 04:43 04:50 WBC RBC 2.35 L Hgb 6.6 L Hct 20.1 L MCV MCHC RDW 17.8 H Plt Count 48 L Seg Neuts % (Manual) Lymphocytes % (Manual) Nucleated RBC % Lymphocytes # (Manual) 0.9 L Percent Retic PT INR Fibrinogen D-Dimer POC ABG pH 7.586 H POC ABG pCO2 17.7 L POC ABG pO2 150 H Sodium Potassium Chloride Carbon Dioxide BUN Creatinine Glucose POC Glucose 42 L Lactic Acid Calcium Phosphorus Magnesium Total Bilirubin Direct Bilirubin AST ALT Alkaline Phosphatase Lactate Dehydrogenase CK-MB (CK-2) Troponin T C-Reactive Protein Total Protein Albumin Triglycerides Cholesterol HDL Cholesterol Urine Creatinine Urine Total Protein Crossmatch 12/08/16 12/08/16 12/08/16 04:50 04:59 06:54 WBC RBC Hgb Hct MCV MCHC RDW Plt Count Seg Neuts % (Manual) Lymphocytes % (Manual) Nucleated RBC % Lymphocytes # (Manual) Percent Retic PT INR Fibrinogen D-Dimer POC ABG pH POC ABG pCO2 POC ABG pO2 Sodium 149 H Potassium 3.2 L Chloride 111.8 H Carbon Dioxide 17 L BUN 26 H Creatinine 3.4 H Glucose 163 H POC Glucose 204 H 203 H Lactic Acid Calcium 7.7 L Phosphorus 2.40 L D Magnesium Total Bilirubin Direct Bilirubin AST ALT Alkaline Phosphatase Lactate Dehydrogenase CK-MB (CK-2) Troponin T C-Reactive Protein Total Protein Albumin Triglycerides Cholesterol HDL Cholesterol Urine Creatinine Urine Total Protein Crossmatch 07/09/2112/08/16 12/08/16 08:04 08:46 08:46 WBC RBC Hgb Hct MCV MCHC RDW Plt Count Seg Neuts % (Manual) Lymphocytes % (Manual) Nucleated RBC % Lymphocytes # (Manual) Percent Retic PT INR Fibrinogen D-Dimer POC ABG pH POC ABG pCO2 POC ABG pO2 Sodium 147 H Potassium 2.9 L* Chloride 110.6 H Carbon Dioxide 17 L BUN 28 H Creatinine 3.6 H Glucose 127 H POC Glucose 205 H Lactic Acid Calcium 7.3 L Phosphorus Magnesium Total Bilirubin Direct Bilirubin AST ALT Alkaline Phosphatase Lactate Dehydrogenase CK-MB (CK-2) Troponin T C-Reactive Protein Total Protein Albumin Triglycerides Cholesterol HDL Cholesterol Urine Creatinine Urine Total Protein Crossmatch See Detail 12/08/16 12/08/16 12/08/16 12:36 19:00 19:00 WBC RBC Hgb Hct MCV MCHC RDW Plt Count Seg Neuts % (Manual) Lymphocytes % (Manual) Nucleated RBC % Lymphocytes # (Manual) Percent Retic PT 15.3 H INR 1.22 H Fibrinogen 563 H D-Dimer 5507.36 H POC ABG pH POC ABG pCO2 POC ABG pO2 Sodium Potassium Chloride Carbon Dioxide 21 L BUN Creatinine 1.7 H D Glucose 155 H POC Glucose 181 H Lactic Acid Calcium Phosphorus Magnesium Total Bilirubin Direct Bilirubin AST ALT Alkaline Phosphatase Lactate Dehydrogenase CK-MB (CK-2) Troponin T C-Reactive Protein Total Protein Albumin Triglycerides Cholesterol HDL Cholesterol Urine Creatinine Urine Total Protein Crossmatch 12/08/16 12/08/16 12/08/16 19:00 19:00 23:32 WBC RBC 2.76 L Hgb 7.8 L Hct 23.7 L MCV MCHC RDW 17.0 H Plt Count 38 L Seg Neuts % (Manual) Lymphocytes % (Manual) Nucleated RBC % Lymphocytes # (Manual) Percent Retic PT INR Fibrinogen D-Dimer POC ABG pH 7.498 H POC ABG pCO2 25.2 L POC ABG pO2 137 H Sodium Potassium Chloride Carbon Dioxide BUN Creatinine Glucose POC Glucose Lactic Acid Calcium Phosphorus Magnesium Total Bilirubin Direct Bilirubin AST ALT Alkaline Phosphatase Lactate Dehydrogenase 382 H CK-MB (CK-2) Troponin T C-Reactive Protein Total Protein Albumin Triglycerides Cholesterol HDL Cholesterol Urine Creatinine Urine Total Protein Crossmatch 12/08/16 12/09/16 12/09/16 23:44 05:22 06:00 WBC RBC Hgb Hct MCV MCHC RDW Plt Count Seg Neuts % (Manual) Lymphocytes % (Manual) Nucleated RBC % Lymphocytes # (Manual) Percent Retic PT INR Fibrinogen D-Dimer POC ABG pH POC ABG pCO2 POC ABG pO2 Sodium Potassium Chloride 110.2 H Carbon Dioxide 18 L BUN 19 H Creatinine 2.5 H Glucose 105 H POC Glucose 311 H 113 H Lactic Acid Calcium Phosphorus 2.00 L Magnesium Total Bilirubin Direct Bilirubin AST ALT Alkaline Phosphatase Lactate Dehydrogenase CK-MB (CK-2) Troponin T C-Reactive Protein Total Protein Albumin Triglycerides Cholesterol HDL Cholesterol Urine Creatinine Urine Total Protein Crossmatch 12/09/16 12/09/16 12/09/16 11:29 11:59 12:02 WBC RBC Hgb Hct MCV MCHC RDW Plt Count Seg Neuts % (Manual) Lymphocytes % (Manual) Nucleated RBC % Lymphocytes # (Manual) Percent Retic 0.23 L PT INR Fibrinogen D-Dimer POC ABG pH 7.326 L POC ABG pCO2 POC ABG pO2 115 H Sodium Potassium Chloride Carbon Dioxide BUN Creatinine Glucose POC Glucose 254 H Lactic Acid Calcium Phosphorus Magnesium Total Bilirubin Direct Bilirubin AST ALT Alkaline Phosphatase Lactate Dehydrogenase CK-MB (CK-2) Troponin T C-Reactive Protein Total Protein Albumin Triglycerides Cholesterol HDL Cholesterol Urine Creatinine Urine Total Protein Crossmatch 12/09/16 12/09/16 12/09/16 16:28 23:27 Unknown WBC 11.3 H RBC 2.92 L Hgb 8.4 L Hct 25.3 L MCV MCHC RDW 16.9 H Plt Count 31 L Seg Neuts % (Manual) Lymphocytes % (Manual) Nucleated RBC % Lymphocytes # (Manual) Percent Retic PT INR Fibrinogen D-Dimer POC ABG pH POC ABG pCO2 POC ABG pO2 Sodium Potassium Chloride Carbon Dioxide BUN Creatinine Glucose POC Glucose 199 H 247 H Lactic Acid Calcium Phosphorus Magnesium Total Bilirubin Direct Bilirubin AST ALT Alkaline Phosphatase Lactate Dehydrogenase CK-MB (CK-2) Troponin T C-Reactive Protein Total Protein Albumin Triglycerides Cholesterol HDL Cholesterol Urine Creatinine Urine Total Protein Crossmatch 12/10/16 12/10/16 12/10/16 05:36 09:55 09:55 WBC 21.2 H RBC 3.37 L Hgb 9.6 L Hct 29.5 L MCV MCHC RDW 16.3 H Plt Count 102 L D Seg Neuts % (Manual) Lymphocytes % (Manual) Nucleated RBC % Lymphocytes # (Manual) Percent Retic PT INR Fibrinogen D-Dimer POC ABG pH POC ABG pCO2 POC ABG pO2 Sodium Potassium Chloride 107.4 H Carbon Dioxide 21 L BUN 37 H Creatinine 4.2 H D Glucose 174 H POC Glucose 248 H Lactic Acid Calcium Phosphorus Magnesium Total Bilirubin Direct Bilirubin AST ALT Alkaline Phosphatase Lactate Dehydrogenase CK-MB (CK-2) Troponin T C-Reactive Protein Total Protein Albumin Triglycerides Cholesterol HDL Cholesterol Urine Creatinine Urine Total Protein Crossmatch 12/10/16 11:49 WBC RBC Hgb Hct MCV MCHC RDW Plt Count Seg Neuts % (Manual) Lymphocytes % (Manual) Nucleated RBC % Lymphocytes # (Manual) Percent Retic PT INR Fibrinogen D-Dimer POC ABG pH POC ABG pCO2 POC ABG pO2 Sodium Potassium Chloride Carbon Dioxide BUN Creatinine Glucose POC Glucose 265 H Lactic Acid Calcium Phosphorus Magnesium Total Bilirubin Direct Bilirubin AST ALT Alkaline Phosphatase Lactate Dehydrogenase CK-MB (CK-2) Troponin T C-Reactive Protein Total Protein Albumin Triglycerides Cholesterol HDL Cholesterol Urine Creatinine Urine Total Protein Crossmatch
--- NOTE | 2016-12-10 13:37 | Hem/Onc Progress Note ---
Assessment and Plan - Patient Problems (1) Thrombocytopenia Current Visit: Yes Status: Acute Plan to address problem: Platelets better. Monitor counts. Call with questions. Suspect due to sepsis. Subjective Date of service: 12/10/16 Interval history: Extubated and looks better. No complains. Objective - Constitutional Vitals: Last Vital Signs Temp 97.6 F 12/10/16 12:00 Pulse 109 H 12/10/16 11:00 Resp 17 12/10/16 11:00 BP 130/79 12/10/16 11:00 Pulse Ox 93 12/10/16 11:00 - EENT Eyes: PERRL ENT: hearing intact - Neck Neck: supple - Respiratory Respiratory effort: Positive: normal Respiratory: bilateral: CTA - Labs Lab Results: Laboratory Results - last 24 hr 12/08/16 12/09/16 12/09/16 08:46 11:29 13:27 WBC RBC Hgb Hct MCV MCH MCHC RDW Plt Count Percent Retic 0.23 L Sodium Potassium Chloride Carbon Dioxide Anion Gap BUN Creatinine Estimated GFR BUN/Creatinine Ratio Glucose POC Glucose Calcium Hep Bs Antigen Hepatitis C Antibody HIV 1&2 Antibody Rapid Non react HIV P24 Antigen Non react Blood Type O POSITIVE Antibody Screen TNR ISAIAH Antibody Screen Negative Crossmatch See Detail 12/09/16 12/09/16 12/09/16 13:27 13:27 16:28 WBC RBC Hgb Hct MCV MCH MCHC RDW Plt Count Percent Retic Sodium Potassium Chloride Carbon Dioxide Anion Gap BUN Creatinine Estimated GFR BUN/Creatinine Ratio Glucose POC Glucose 199 H Calcium Hep Bs Antigen Non-reactive Hepatitis C Antibody Non-reactive HIV 1&2 Antibody Rapid HIV P24 Antigen Blood Type Antibody Screen ISAIAH Antibody Screen Crossmatch 12/09/16 12/10/16 12/10/16 23:27 05:36 09:55 WBC 21.2 H RBC 3.37 L Hgb 9.6 L Hct 29.5 L MCV 87 MCH 28 MCHC 33 RDW 16.3 H Plt Count 102 L D Percent Retic Sodium Potassium Chloride Carbon Dioxide Anion Gap BUN Creatinine Estimated GFR BUN/Creatinine Ratio Glucose POC Glucose 247 H 248 H Calcium Hep Bs Antigen Hepatitis C Antibody HIV 1&2 Antibody Rapid HIV P24 Antigen Blood Type Antibody Screen ISAIAH Antibody Screen Crossmatch 12/10/16 12/10/16 09:55 11:49 WBC RBC Hgb Hct MCV MCH MCHC RDW Plt Count Percent Retic Sodium 144 Potassium 3.9 Chloride 107.4 H Carbon Dioxide 21 L Anion Gap 20 BUN 37 H Creatinine 4.2 H D Estimated GFR 14 BUN/Creatinine Ratio 8.80 Glucose 174 H POC Glucose 265 H Calcium 8.6 Hep Bs Antigen Hepatitis C Antibody HIV 1&2 Antibody Rapid HIV P24 Antigen Blood Type Antibody Screen ISAIAH Antibody Screen Crossmatch
--- NOTE | 2016-12-10 14:26 | Progress Note ---
Assessment and Plan Assessment and plan: Patient is a 46-year-old woman with history of insulin-dependent diabetes mellitus, hypertension, recent SAH and dyslipidemia who presented with DKA, AMS and STEMI with V. fib arrest requiring IV amiodarone suppression. She intubated and she was on IV insulin drip for documented DKA, Levophed, IV vancomycin and propofol drip. She has a right groin triple-lumen catheter, Short and NG tube. ET tube removed. Extubated 12/09/16 doing well. Off pressors, diprivan. -Cardiac arrest with V. fib: Cardiology is following -ARF, ATN, poa: renal is following, treated with hemodialysis -Acute hypoxic respiratory failure, intubated: Process Description Writer is following -Cardiac arrest was STEMI: Cardiology is following -Suspected DKA: insulin drip -Metabolic Acidosis, treat the DKA -Acute metabolic encephalopathy, poa -Leukocytosis +GNR in trach aspirate, pseudomonas aeruginosa: ID is following on IV Merrem -DVT prophylaxis: SCDs only due to recent SAH -Thrombocytopenia due to sepsis, improved status post platelet transfusion -Acute on chronic anemia of chronic disease s/p 2 unit of prbc, monitoring closely poor guarded, doing better today. History Interval history: Patient seen and examined. Follow up on cardiac arrest, Imaging, old records, testing, labs, nursing notes reviewed. Hospitalist Physical - Physical exam Narrative exam: GEN: NAD, AWAKE, ALERT, ORIENTATED x 3 CVS: Regular tachycardic, NORMAL S1S2 LUNGS/CHEST: NORMAL CHEST EXPANSION B, improved ENTRY B ABD: SOFT, NTND, GBS, NO REBOUND OR GUARDING MSK: FROM X 4 EXTREMITIES NEURO: CN 2-12 GROSSLY INTACT, NO new FOCAL DEFICITS PSY: CALM - Constitutional Vitals: Temp Pulse Resp BP Pulse Ox 97.6 F 109 H 17 130/79 93 12/10/16 12:00 12/10/16 11:00 12/10/16 11:00 12/10/16 11:00 12/10/16 11:00 General appearance: Present: no acute distress, other (O2 sat 98% on room air ( nasal cannula not in place)) Results - Labs CBC & Chem 7: 12/10/16 09:55 12/10/16 09:55 Labs: Laboratory Last Values WBC 21.2 K/mm3 (4.5-11.0) H 12/10/16 09:55 RBC 3.37 M/mm3 (3.65-5.03) L 12/10/16 09:55 Hgb 9.6 gm/dl (10.1-14.3) L 12/10/16 09:55 Hct 29.5 % (30.3-42.9) L 12/10/16 09:55 MCV 87 fl (79-97) 12/10/16 09:55 MCH 28 pg (28-32) 12/10/16 09:55 MCHC 33 % (30-34) 12/10/16 09:55 RDW 16.3 % (13.2-15.2) H 12/10/16 09:55 Plt Count 102 K/mm3 (140-440) L D 12/10/16 09:55 Add Manual Diff Complete 12/09/16 Unknown Total Counted 100 12/09/16 Unknown Seg Neuts % (Manual) 42.0 % (40.0-70.0) 12/09/16 Unknown Band Neutrophils % 29.0 % 12/09/16 Unknown Lymphocytes % (Manual) 16.0 % (13.4-35.0) 12/09/16 Unknown Reactive Lymphs % (Man) 0 % 12/09/16 Unknown Monocytes % (Manual) 3.0 % (0.0-7.3) 12/09/16 Unknown Eosinophils % (Manual) 2.0 % (0.0-4.3) 12/09/16 Unknown Basophils % (Manual) 0 % (0.0-1.8) 12/09/16 Unknown Metamyelocytes % 2.0 % 12/09/16 Unknown Myelocytes % 6.0 % 12/09/16 Unknown Promyelocytes % 0 % 12/09/16 Unknown Blast Cells % 0 % 12/09/16 Unknown Nucleated RBC % Not Reportable 12/09/16 Unknown Seg Neutrophils # Man 4.7 K/mm3 (1.8-7.7) 12/09/16 Unknown Band Neutrophils # 3.3 K/mm3 12/09/16 Unknown Lymphocytes # (Manual) 1.8 K/mm3 (1.2-5.4) 12/09/16 Unknown Abs React Lymphs (Man) 0.0 K/mm3 12/09/16 Unknown Monocytes # (Manual) 0.3 K/mm3 (0.0-0.8) 12/09/16 Unknown Eosinophils # (Manual) 0.2 K/mm3 (0.0-0.4) 12/09/16 Unknown Basophils # (Manual) 0.0 K/mm3 (0.0-0.1) 12/09/16 Unknown Metamyelocytes # 0.2 K/mm3 12/09/16 Unknown Myelocytes # 0.7 K/mm3 12/09/16 Unknown Promyelocytes # 0.0 K/mm3 12/09/16 Unknown Blast Cells # 0.0 K/mm3 12/09/16 Unknown WBC Morphology Not Reportable 12/09/16 Unknown Hypersegmented Neuts Not Reportable 12/09/16 Unknown Hyposegmented Neuts Not Reportable 12/09/16 Unknown Hypogranular Neuts Not Reportable 12/09/16 Unknown Smudge Cells Not Reportable 12/09/16 Unknown Toxic Granulation Rare 12/09/16 Unknown Toxic Vacuolation Not Reportable 12/09/16 Unknown Dohle Bodies Not Reportable 12/09/16 Unknown Pelger-Huet Anomaly Not Reportable 12/09/16 Unknown Mary Rods Not Reportable 12/09/16 Unknown Platelet Estimate Appears decreased 12/09/16 Unknown Clumped Platelets Not Reportable 12/09/16 Unknown Plt Clumps, EDTA Not Reportable 12/09/16 Unknown Large Platelets Not Reportable 12/09/16 Unknown Giant Platelets Not Reportable 12/09/16 Unknown Platelet Satelliting Not Reportable 12/09/16 Unknown Plt Morphology Comment Not Reportable 12/09/16 Unknown RBC Morphology Not Reportable 12/09/16 Unknown Dimorphic RBCs Not Reportable 12/09/16 Unknown Polychromasia Not Reportable 12/09/16 Unknown Hypochromasia Not Reportable 12/09/16 Unknown Poikilocytosis Not Reportable 12/09/16 Unknown Anisocytosis 1+ 12/09/16 Unknown Microcytosis 1+ 12/09/16 Unknown Macrocytosis Not Reportable 12/09/16 Unknown Spherocytes Not Reportable 12/09/16 Unknown Pappenheimer Bodies Not Reportable 12/09/16 Unknown Sickle Cells Not Reportable 12/09/16 Unknown Target Cells 1+ 12/09/16 Unknown Tear Drop Cells Not Reportable 12/09/16 Unknown Ovalocytes Not Reportable 12/09/16 Unknown Helmet Cells Not Reportable 12/09/16 Unknown Landers-Hamler Bodies Not Reportable 12/09/16 Unknown [place] Rings Not Reportable 12/09/16 Unknown Jerri Cells Not Reportable 12/09/16 Unknown Bite Cells Not Reportable 12/09/16 Unknown Crenated Cell Not Reportable 12/09/16 Unknown Elliptocytes Not Reportable 12/09/16 Unknown Acanthocytes (Spur) Not Reportable 12/09/16 Unknown Rouleaux Not Reportable 12/09/16 Unknown Hemoglobin C Crystals Not Reportable 12/09/16 Unknown Schistocytes Not Reportable 12/09/16 Unknown Malaria parasites Not Reportable 12/09/16 Unknown Percent Retic 0.23 % (0.78-2.58) L 12/09/16 11:29 Michael Bodies Not Reportable 12/09/16 Unknown Hem Pathologist Commnt No 12/09/16 Unknown PT 15.3 Sec. (12.2-14.9) H 12/08/16 19:00 INR 1.22 (0.87-1.13) H 12/08/16 19:00 APTT 36.2 Sec. (24.2-36.6) 12/08/16 19:00 Fibrinogen 563 mg/dl (211-480) H 12/08/16 19:00 D-Dimer 5507.36 ng/mlDDU (0-234) H 12/08/16 19:00 POC ABG pH 7.326 (7.35-7.45) L 12/09/16 12:02 POC ABG pCO2 37.7 (35-45) 12/09/16 12:02 POC ABG pO2 115 (80-105) H 12/09/16 12:02 POC ABG HCO3 19.7 12/09/16 12:02 POC ABG Total CO2 21 12/09/16 12:02 POC ABG O2 Sat 98 12/09/16 12:02 POC ABG Base Excess -6 12/09/16 12:02 FiO2 30 % 12/09/16 12:02 Sodium 144 mmol/L (137-145) 12/10/16 09:55 Potassium 3.9 mmol/L (3.6-5.0) 12/10/16 09:55 Chloride 107.4 mmol/L (98-107) H 12/10/16 09:55 Carbon Dioxide 21 mmol/L (22-30) L 12/10/16 09:55 Anion Gap 20 mmol/L 12/10/16 09:55 BUN 37 mg/dL (7-17) H 12/10/16 09:55 Creatinine 4.2 mg/dL (0.7-1.2) H D 12/10/16 09:55 Estimated GFR 14 ml/min 12/10/16 09:55 BUN/Creatinine Ratio 8.80 % 12/10/16 09:55 Glucose 174 mg/dL (65-100) H 12/10/16 09:55 POC Glucose 265 (70-105) H 12/10/16 11:49 Lactic Acid 6.90 mmol/L (0.7-2.0) H* 12/07/16 07:30 Calcium 8.6 mg/dL (8.4-10.2) 12/10/16 09:55 Phosphorus 2.00 mg/dL (2.5-4.5) L 12/09/16 06:00 Magnesium 1.80 mg/dL (1.7-2.3) 12/09/16 05:36 Total Bilirubin 1.40 mg/dL (0.1-1.2) H 12/07/16 21:35 Direct Bilirubin 0.9 mg/dL (0-0.2) H 12/07/16 21:35 Indirect Bilirubin 0.5 mg/dL 12/07/16 21:35 AST 94 units/L (5-40) H 12/07/16 21:35 ALT 142 units/L (7-56) H 12/07/16 21:35 Alkaline Phosphatase 249 units/L (35-129) H 12/07/16 21:35 Lactate Dehydrogenase 382 units/L (91-180) H 12/08/16 19:00 Total Creatine Kinase 123 units/L (30-135) 12/04/16 09:55 CK-MB (CK-2) 4.6 ng/mL (0.0-4.0) H 12/04/16 09:55 CK-MB (CK-2) Rel Index 3.7 (0-4) 12/04/16 09:55 Troponin T 0.140 ng/mL (0.00-0.029) H* D 12/04/16 09:55 C-Reactive Protein 39.40 mg/dL (0.00-1.30) H 12/07/16 06:00 Total Protein 4.6 g/dL (6.3-8.2) L D 12/07/16 21:35 Albumin 2.1 g/dL (3.9-5) L 12/07/16 21:35 Albumin/Globulin Ratio 0.8 % 12/07/16 21:35 Triglycerides 570 mg/dL (2-149) H 12/04/16 07:55 Cholesterol 221 mg/dL (50-199) H 12/04/16 07:55 LDL Cholesterol Direct TNR 12/04/16 07:55 HDL Cholesterol 37 mg/dL (40-59) L 12/04/16 07:55 Cholesterol/HDL Ratio 5.97 % 12/04/16 07:55 TSH 1.600 mlU/mL (0.270-4.200) 12/03/16 23:20 Urine Color Yellow (Yellow) 12/04/16 11:25 Urine Turbidity Slightly-cloudy (Clear) 12/04/16 11:25 Urine pH 5.0 (5.0-7.0) 12/04/16 11:25 Ur Specific [place] 1.018 (1.003-1.030) 12/04/16 11:25 Urine Protein 30 mg/dl mg/dL (Negative) 12/04/16 11:25 Urine Glucose (UA) >=500 mg/dL (Negative) 12/04/16 11:25 Urine Ketones Tr mg/dL (Negative) 12/04/16 11:25 Urine Blood Sm (Negative) 12/04/16 11:25 Urine Nitrite Neg (Negative) 12/04/16 11:25 Urine Bilirubin Neg (Negative) 12/04/16 11:25 Urine Urobilinogen < 2.0 mg/dL (<2.0) 12/04/16 11:25 Ur Leukocyte Esterase Neg (Negative) 12/04/16 11:25 Urine WBC (Auto) 4.0 /HPF (0.0-6.0) 12/04/16 11:25 Urine RBC (Auto) 2.0 /HPF (0.0-6.0) 12/04/16 11:25 U Epithel Cells (Auto) < 1.0 /HPF (0-13.0) 12/04/16 11:25 Urine Mucus Few /HPF 12/04/16 11:25 Urine Osmolality 419 Mosm/kg 12/04/16 11:25 Urine Creatinine 29.5 mg/dL (0.1-20.0) H 12/04/16 11:25 Protein/Creatinin Ratio 1.12 12/04/16 11:25 Urine Sodium 26 mEq/L 12/04/16 11:25 Urine Total Protein 33 mg/dL (5-11.8) H 12/04/16 11:25 Urine Opiates Screen Presumptive negative 12/04/16 11:25 Urine Methadone Screen Presumptive negative 12/04/16 11:25 Ur Barbiturates Screen Presumptive negative 12/04/16 11:25 Ur Phencyclidine Scrn Presumptive negative 12/04/16 11:25 Ur Amphetamines Screen Presumptive negative 12/04/16 11:25 U Benzodiazepines Scrn Presumptive negative 12/04/16 11:25 Urine Cocaine Screen Presumptive negative 12/04/16 11:25 U Marijuana (THC) Screen Presumptive positive 12/04/16 11:25 Drugs of Abuse Note Disclamer 12/04/16 11:25 Hep Bs Antigen Non-reactive (Negative) 12/09/16 13:27 Hepatitis C Antibody Non-reactive (NonReactive) 12/09/16 13:27 HIV 1&2 Antibody Rapid Non react (Non React) 12/09/16 13:27 HIV P24 Antigen Non react (Non React) 12/09/16 13:27 Schistocytes Smear None seen 12/09/16 11:29 Blood Type O POSITIVE 12/08/16 08:46 Antibody Screen TNR 12/08/16 08:46 ISAIAH Antibody Screen Negative 12/08/16 08:46 Crossmatch See Detail 12/08/16 08:46
[2016-12-10] MEDS: PEPCID PO SCH (17:44)
[2016-12-11] MEDS: MERREM 1,000 MG in NACL 0.9% 100 ML IV SCH (00:13)
[2016-12-11] MEDS: REGLAN IV SCH ×3 (00:14→16:00)
[2016-12-11] MEDS: NOVOLOG SUB-Q SCH ×5 (00:15→18:05)
[2016-12-11 06:11] LABS: Hematocrit 30.1 % (30.3-42.9); Hemoglobin 9.7 gm/dl (10.1-14.3); Mean Corpuscular HGB Conc 32 % (30-34); Mean Corpuscular Hemoglobin 28 pg (28-32); Mean Corpuscular Volume 87 fl (79-97); Platelet Count 115 K/mm3 (140-440); Red Blood Count 3.46 M/mm3 (3.65-5.03); Red Cell Distribution Width 16.4 % (13.2-15.2)
[2016-12-11 06:13] LABS: White Blood Count 23.5 K/mm3 (4.5-11.0)
[2016-12-11 06:33] LABS: BUN/Creatinine Ratio 10.41; Calcium 8.2 mg/dL (8.4-10.2); Chloride 104.5 mmol/L (98-107); Phosphorous 2.5 mg/dL (2.5-4.5); Potassium 3.9 mmol/L (3.6-5.0)
[2016-12-11 06:44] LABS: Iron 15 ug/dL (37-170); Total Iron Binding Capacity 134 mcg/dL (250-450)
--- NOTE | 2016-12-11 06:49 | Progress Note ---
Assessment and Plan - Patient Problems (1) Severe sepsis Current Visit: Yes Status: Acute Plan to address problem: 1. Treating Zosyn-resistant Pseudomonas isolated from airway. 2. Will change Meropenem to inhaled Tobramycin to limit systemic antibiotics. 3. Adding Flagyl for presumptive subclinical Cdiff-associated disease given increasing WBC count. 4. Continue to monitor clinically. (2) Acute respiratory failure with hypoxemia Current Visit: No Status: Acute Plan to address problem: Per above. Subjective Date of service: 12/11/16 Principal diagnosis: Severe Sepsis; DKA, cardiac arrest Interval history: Increased WBC count. Patient has no new complaints. Specifically denies diarrhea or abdominal pain. Objective - Constitutional Vitals: Vital Signs Temp Pulse Resp BP Pulse Ox 98.0 F 111 H 14 115/63 97 12/11/16 04:00 12/11/16 04:00 12/11/16 04:00 12/11/16 04:00 12/11/16 04:00 Temperature -Last 24 Hours Temperature 98.0 F Temperature 97.8 F Temperature 98.6 F Temperature 97.9 F Temperature 97.6 F Temperature 97.5 F General appearance: Present: no acute distress - EENT ENT: other (NG tube in place) - Neck Neck: supple - Respiratory Respiratory effort: normal Respiratory: bilateral: CTA, negative: rales, rhonchi - Cardiovascular Rhythm: regular (mild tachycardia) Heart Sounds: Present: S1 & S2 Extremities: No edema - Gastrointestinal General gastrointestinal: Present: soft, non-tender, non-distended, hypoactive bowel sounds - Integumentary Integumentary: clear, no jaundice, no rash - Neurologic Neurologic: CNII-XII intact, moves all extremities - Psychiatric Psychiatric: appropriate mood/affect - Labs CBC & Chem 7: 12/11/16 04:30 12/11/16 04:30 Labs: Abnormal lab results 12/08/16 12/09/16 12/09/16 Range/Units 21:30 13:27 23:27 WBC (4.5-11.0) K/mm3 RBC (3.65-5.03) M/mm3 Hgb (10.1-14.3) gm/dl Hct (30.3-42.9) % RDW (13.2-15.2) % Plt Count (140-440) K/mm3 Haptoglobin 271 H (43-212) mg/dL Chloride (98-107) mmol/L Carbon Dioxide (22-30) mmol/L BUN (7-17) mg/dL Creatinine (0.7-1.2) mg/dL Glucose (65-100) mg/dL POC Glucose 247 H (70-105) Calcium (8.4-10.2) mg/dL Iron 15 L (37-170) ug/dL TIBC 134 L (250-450) mcg/dL 12/10/16 12/10/16 12/10/16 Range/Units 09:55 09:55 11:49 WBC 21.2 H (4.5-11.0) K/mm3 RBC 3.37 L (3.65-5.03) M/mm3 Hgb 9.6 L (10.1-14.3) gm/dl Hct 29.5 L (30.3-42.9) % RDW 16.3 H (13.2-15.2) % Plt Count 102 L D (140-440) K/mm3 Haptoglobin (43-212) mg/dL Chloride 107.4 H (98-107) mmol/L Carbon Dioxide 21 L (22-30) mmol/L BUN 37 H (7-17) mg/dL Creatinine 4.2 H D (0.7-1.2) mg/dL Glucose 174 H (65-100) mg/dL POC Glucose 265 H (70-105) Calcium (8.4-10.2) mg/dL Iron (37-170) ug/dL TIBC (250-450) mcg/dL 12/10/16 12/10/16 12/11/16 Range/Units 17:56 23:44 04:30 WBC 23.5 H (4.5-11.0) K/mm3 RBC 3.46 L (3.65-5.03) M/mm3 Hgb 9.7 L (10.1-14.3) gm/dl Hct 30.1 L (30.3-42.9) % RDW 16.4 H (13.2-15.2) % Plt Count 115 L (140-440) K/mm3 Haptoglobin (43-212) mg/dL Chloride (98-107) mmol/L Carbon Dioxide (22-30) mmol/L BUN (7-17) mg/dL Creatinine (0.7-1.2) mg/dL Glucose (65-100) mg/dL POC Glucose 118 H 378 H (70-105) Calcium (8.4-10.2) mg/dL Iron (37-170) ug/dL TIBC (250-450) mcg/dL 12/11/16 12/11/16 Range/Units 04:30 05:33 WBC (4.5-11.0) K/mm3 RBC (3.65-5.03) M/mm3 Hgb (10.1-14.3) gm/dl Hct (30.3-42.9) % RDW (13.2-15.2) % Plt Count (140-440) K/mm3 Haptoglobin (43-212) mg/dL Chloride (98-107) mmol/L Carbon Dioxide 21 L (22-30) mmol/L BUN 50 H (7-17) mg/dL Creatinine 4.8 H (0.7-1.2) mg/dL Glucose 303 H (65-100) mg/dL POC Glucose 335 H (70-105) Calcium 8.2 L (8.4-10.2) mg/dL Iron (37-170) ug/dL TIBC (250-450) mcg/dL Microbiology 12/05/16 05:19 Peripheral/Venous Blood Culture - Final NO GROWTH AFTER 5 DAYS 12/05/16 04:44 Peripheral/Venous Blood Culture - Final NO GROWTH AFTER 5 DAYS 12/03/16 23:20 Peripheral/Venous Blood Culture - Final Coag Negative Staphylococcus 12/06/16 21:55 Tracheal Aspirate Sputum Culture - Final Pseudomonas Aeruginosa 12/03/16 23:20 Peripheral/Venous Blood Culture - Final NO GROWTH AFTER 5 DAYS 12/04/16 01:05 Tracheal Aspirate Sputum Culture - Final
[2016-12-11 07:00] LABS: Anisocytosis 1+; Basophils % (Manual) 0 % (0.0-1.8); Blastocytes % (Manual) 0 %; Diff Status Complete; Hypochromasia Few; Platelet Estimate Appears Decreased; Poikilocytosis 1+; Target Cells Rare
[2016-12-11] MEDS: FLAGYL 500 MG/100 ML 500 MG/100 ML BAG IV SCH ×3 (07:00→21:48)
--- NOTE | 2016-12-11 07:47 | XRay Report ---
Single view chest: Compared to . History: Followup of respiratory failure. Findings: Borderline cardiomegaly. Trachea is midline. Stable left PICC line. Consolidation right upper lobe without interval change. Impression: No significant interval change.
--- NOTE | 2016-12-11 09:00 | Progress Note ---
Assessment and Plan Acute respiratory failure vent weaning per pulmonary Cardiac arrest PEA arrest-->V. fib/?torsades-->shocked twice, received amiodarone 300 mg--> likely due to hyperkalemia (9.6 on presentation) Echo 11/2016: EF 40-45%, repeat echo EF 40-45% Abnormal EKG/ST elevation Given pt.'s condition, resolution of ST elevation and recent subarachnoid bleed pt. not a candidate for cardiac cath Hypotension resolved Nstemi type 2 Cardiomyopathy EF 40-45% consider beta zoila if BP can tolerate no ACEI/ARB due to CKD DKA Hyperkalemia Acute on chronic renal failure Anemia Recent subarachnoid hemorrhage Altered mental status Stable cardiac status. Continue current management. Will see as needed. The patient has been seen in conjunction with Dr. Camargo who agrees with the assessment and plan of care. Subjective Date of service: 12/11/16 Principal diagnosis: Severe Sepsis; DKA, cardiac arrest Interval history: The patient is resting comfortably in bed. No new complaints. Sinus rhythm- sinus tach on the monitor. Objective Last Vital Signs Temp 98.2 F 12/11/16 08:00 Pulse 106 H 12/11/16 08:00 Resp 23 12/11/16 08:00 BP 114/62 12/11/16 08:00 Pulse Ox 93 12/11/16 08:00 - Physical Examination General: No Apparent Distress HEENT: Positive: Normocephaly Neck: Positive: neck supple, trachea midline Cardiac: Positive: Reg Rate and Rhythm, S1/S2 Lungs: Positive: clear to auscultation Neuro: Positive: Grossly Intact Abdomen: Positive: Soft Skin: Negative: Rash Extremities: Present: normal. Absent: edema - Labs and Meds CBC 12/10/16 12/11/16 Range/Units 09:55 04:30 WBC 21.2 H 23.5 H (4.5-11.0) K/mm3 RBC 3.37 L 3.46 L (3.65-5.03) M/mm3 Hgb 9.6 L 9.7 L (10.1-14.3) gm/dl Hct 29.5 L 30.1 L (30.3-42.9) % Plt Count 102 L D 115 L (140-440) K/mm3 Comprehensive Metabolic Panel 12/10/16 12/11/16 Range/Units 09:55 04:30 Sodium 144 143 (137-145) mmol/L Potassium 3.9 3.9 (3.6-5.0) mmol/L Chloride 107.4 H 104.5 (98-107) mmol/L Carbon Dioxide 21 L 21 L (22-30) mmol/L BUN 37 H 50 H (7-17) mg/dL Creatinine 4.2 H D 4.8 H (0.7-1.2) mg/dL Glucose 174 H 303 H (65-100) mg/dL Calcium 8.6 8.2 L (8.4-10.2) mg/dL - Imaging and Cardiology Echo: report reviewed (11/2016: EF 40-45% repeat echo EF 40-45%) - Telemetry EKG Rhythm: Sinus Rhythm
--- NOTE | 2016-12-11 09:53 | Progress Note ---
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 teaching supervisor insulin use: D Qualified Code(s): E10.10 - Type 1 diabetes mellitus with ketoacidosis without coma Plan to address problem: resolved, switched to SQ insulin (2) Acute hypernatremia Current Visit: No Status: Acute Plan to address problem: cont free water flushes via NGT, will adjust as needed, (3) Acute kidney failure with tubular necrosis Current Visit: No Status: Acute Plan to address problem: secondary to ischemic ATN from shock no signs of recovery, remains oliguric HD today for clearance and volume removal strict I&O daily weight renal diet (4) Leukocytosis Current Visit: Yes Status: Acute Qualifiers: Leukocytosis type: L Plan to address problem: followed by ID will check blood culture from vascath, will need to have the catheter remove due to high risk of infection if remains dialysis dependent Subjective Date of service: 12/11/16 Principal diagnosis: Severe Sepsis; DKA, cardiac arrest Interval history: remains to feel weak but slowly feeling better Objective - Vital Signs Vital signs: Vital Signs - 12hr 12/10/16 12/10/16 12/10/16 22:00 22:30 22:42 Temperature Pulse Rate 111 H 111 H Respiratory 27 H 21 Rate Blood Pressure 124/73 127/69 O2 Sat by Pulse 97 96 98 Oximetry 12/10/16 12/10/16 12/10/16 23:00 23:30 23:54 Temperature 97.8 F Pulse Rate 112 H 113 H Respiratory 26 H 19 Rate Blood Pressure 114/67 131/49 O2 Sat by Pulse 97 96 Oximetry 12/11/16 12/11/16 12/11/16 00:00 00:30 01:00 Temperature Pulse Rate 112 H 118 H 120 H Respiratory 24 22 15 Rate Blood Pressure 118/71 122/66 126/75 O2 Sat by Pulse 95 93 96 Oximetry 12/11/16 12/11/16 12/11/16 01:30 02:00 02:30 Temperature Pulse Rate 117 H 113 H 113 H Respiratory 24 20 16 Rate Blood Pressure 117/75 109/60 100/68 O2 Sat by Pulse 96 97 98 Oximetry 12/11/16 12/11/16 12/11/16 03:00 03:30 04:00 Temperature 98.0 F Pulse Rate 114 H 115 H 111 H Respiratory 22 18 14 Rate Blood Pressure 96/57 103/80 115/63 O2 Sat by Pulse 97 92 97 Oximetry 12/11/16 12/11/16 12/11/16 04:30 05:00 05:30 Temperature Pulse Rate 114 H 113 H 112 H Respiratory 17 26 H 25 H Rate Blood Pressure 91/55 87/51 88/53 O2 Sat by Pulse 98 97 95 Oximetry 12/11/16 12/11/16 12/11/16 06:00 06:30 07:00 Temperature Pulse Rate 113 H 109 H 108 H Respiratory 21 25 H 23 Rate Blood Pressure 94/54 92/36 87/51 O2 Sat by Pulse 97 97 Oximetry 12/11/16 12/11/16 12/11/16 07:15 07:30 08:00 Temperature 98.2 F Pulse Rate 103 H 106 H Respiratory 22 23 Rate Blood Pressure 105/57 114/62 O2 Sat by Pulse 97 97 97 Oximetry - General Appearance General appearance: cachectic EENT: ATNC, PERRL, mucous membranes dry Neck: no JVD Respiratory: Present: Clear to Ascultation Cardiology: regular, S1S2 Gastrointestinal: normoactive bowel sounds Integumentary: no rash, warm and dry Neurologic: no focal deficit, no asterixis Musculoskeletal: other (trace pitting edema in BLE) Psychiatric: cooperative - Lab 12/11/16 04:30 12/11/16 04:30 Most recent lab results Calcium 8.2 mg/dL (8.4-10.2) L 12/11/16 04:30 Phosphorus 2.50 mg/dL (2.5-4.5) 12/11/16 04:30 Magnesium 1.90 mg/dL (1.7-2.3) 12/11/16 04:30 Urine Creatinine 29.5 mg/dL (0.1-20.0) H 12/04/16 11:25 Urine Sodium 26 mEq/L 12/04/16 11:25 Urine Total Protein 33 mg/dL (5-11.8) H 12/04/16 11:25
[2016-12-11] MEDS: TOBRAMYCIN INHALATION (NICU) (40 MG/ML) IH SCH ×2 (10:46→22:28)
--- NOTE | 2016-12-11 13:26 | Fluoroscopy Report ---
Modified barium swallow: History: Dysphagia. Findings: No anatomic obstruction was noted to the flow of liquid and semisolid and solid food through the cervical esophagus. Suspicion of mild penetration with liquids was noted. Impression: Additional information would be provided by speech therapist.
--- NOTE | 2016-12-11 13:49 | Progress Note ---
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 Qualified Code(s): E10.10 - Type 1 diabetes mellitus with ketoacidosis without coma (6) Anemia Current Visit: Yes Status: Acute Qualifiers: Anemia type: A Iron deficiency anemia type: I Vitamin B12 deficiency anemia type: V Folate deficiency anemia type: F Bone marrow failure anemia type: B Hemolytic anemia type: H Other causes of anemia: O Chronic kidney disease stage: C (7) Discharge planning issues Current Visit: No Status: Acute Subjective Date of service: 12/11/16 Principal diagnosis: Severe Sepsis; DKA, cardiac arrest Interval history: Seen and examined at bedside; 24 hour events reviewed; nursing and respiratory care staff consulted; no adverse overnight events reported to me; failed swallow evaluation; complaining of right upper back pain which may well ne related to RUL pneumonia; no hemoptysis; no N/V/F/C Objective Vital Signs - 12hr 12/11/16 12/11/16 12/11/16 02:00 02:30 03:00 Temperature Pulse Rate 113 H 113 H 114 H Pulse Rate [ Anterior Bilateral Throughout] Respiratory 20 16 22 Rate Respiratory Rate [Anterior Bilateral Throughout] Blood Pressure 109/60 100/68 96/57 O2 Sat by Pulse 97 98 97 Oximetry 12/11/16 12/11/16 12/11/16 03:30 04:00 04:30 Temperature 98.0 F Pulse Rate 115 H 111 H 114 H Pulse Rate [ Anterior Bilateral Throughout] Respiratory 18 14 17 Rate Respiratory Rate [Anterior Bilateral Throughout] Blood Pressure 103/80 115/63 91/55 O2 Sat by Pulse 92 97 98 Oximetry 12/11/16 12/11/16 12/11/16 05:00 05:30 06:00 Temperature Pulse Rate 113 H 112 H 113 H Pulse Rate [ Anterior Bilateral Throughout] Respiratory 26 H 25 H 21 Rate Respiratory Rate [Anterior Bilateral Throughout] Blood Pressure 87/51 88/53 94/54 O2 Sat by Pulse 97 95 Oximetry 12/11/16 12/11/16 12/11/16 06:30 07:00 07:15 Temperature Pulse Rate 109 H 108 H Pulse Rate [ Anterior Bilateral Throughout] Respiratory 25 H 23 Rate Respiratory Rate [Anterior Bilateral Throughout] Blood Pressure 92/36 87/51 O2 Sat by Pulse 97 97 97 Oximetry 12/11/16 12/11/16 12/11/16 07:30 08:00 10:46 Temperature 98.2 F Pulse Rate 103 H 106 H Pulse Rate [ 111 H Anterior Bilateral Throughout] Respiratory 22 23 Rate Respiratory 16 Rate [Anterior Bilateral Throughout] Blood Pressure 105/57 114/62 O2 Sat by Pulse 97 97 Oximetry 12/11/16 12/11/16 10:52 12:00 Temperature 98.1 F Pulse Rate Pulse Rate [ 109 H Anterior Bilateral Throughout] Respiratory Rate Respiratory 16 Rate [Anterior Bilateral Throughout] Blood Pressure O2 Sat by Pulse Oximetry Constitutional: no acute distress, appears uncomfortable Eyes: non-icteric ENT: oropharynx moist Neck: supple, no lymphadenopathy Effort: mildly labored Ascultation: Bilateral: diminished breath sounds, rales (R>L lungs) Cardiovascular: regular rate and rhythm, other (SVT) Gastrointestinal: normoactive bowel sounds, soft, non-tender, non-distended Integumentary: normal Extremities: no cyanosis, no edema, pulses normal, no ischemia or petechiae Neurologic: normal mental status, non-focal exam, pupils equal and round, motor strength normal and Psychiatric: mood appropriate, affect normal CBC and BMP: 12/11/16 04:30 12/11/16 04:30 ABG, PT/INR, D-dimer: ABG POC ABG pH 7.326 (7.35-7.45) L 12/09/16 12:02 POC ABG pCO2 37.7 (35-45) 12/09/16 12:02 POC ABG pO2 115 (80-105) H 12/09/16 12:02 POC ABG HCO3 19.7 12/09/16 12:02 POC ABG Total CO2 21 12/09/16 12:02 POC ABG O2 Sat 98 12/09/16 12:02 PT/INR, D-dimer PT 15.3 Sec. (12.2-14.9) H 12/08/16 19:00 INR 1.22 (0.87-1.13) H 12/08/16 19:00 D-Dimer 5507.36 ng/mlDDU (0-234) H 12/08/16 19:00 Abnormal lab findings: Abnormal Labs 12/04/16 12/04/16 12/04/16 01:19 01:36 02:21 WBC RBC Hgb Hct MCV MCHC RDW Plt Count Seg Neuts % (Manual) Lymphocytes % (Manual) Monocytes % (Manual) Nucleated RBC % Seg Neutrophils # Man Lymphocytes # (Manual) Monocytes # (Manual) Percent Retic Haptoglobin PT INR Fibrinogen D-Dimer POC ABG pH 6.759 L POC ABG pCO2 POC ABG pO2 437 H Sodium Potassium Chloride Carbon Dioxide BUN Creatinine Glucose POC Glucose > 500 H Lactic Acid Calcium Phosphorus 15.70 H Magnesium 4.30 H Iron TIBC Total Bilirubin Direct Bilirubin AST ALT Alkaline Phosphatase Lactate Dehydrogenase CK-MB (CK-2) Troponin T C-Reactive Protein Total Protein Albumin Triglycerides Cholesterol HDL Cholesterol Vitamin B12 Urine Creatinine Urine Total Protein Hep Bs Antibody, Quant Crossmatch 12/04/16 12/04/16 12/04/16 03:55 04:00 05:11 WBC RBC Hgb Hct MCV MCHC RDW Plt Count Seg Neuts % (Manual) Lymphocytes % (Manual) Monocytes % (Manual) Nucleated RBC % Seg Neutrophils # Man Lymphocytes # (Manual) Monocytes # (Manual) Percent Retic Haptoglobin PT INR Fibrinogen D-Dimer POC ABG pH POC ABG pCO2 POC ABG pO2 Sodium Potassium Chloride 91.4 L Carbon Dioxide 8 L* BUN 55 H Creatinine 2.8 H Glucose 1610 H* POC Glucose > 500 H > 500 H Lactic Acid Calcium Phosphorus Magnesium Iron TIBC Total Bilirubin Direct Bilirubin AST ALT Alkaline Phosphatase Lactate Dehydrogenase CK-MB (CK-2) Troponin T C-Reactive Protein Total Protein Albumin Triglycerides Cholesterol HDL Cholesterol Vitamin B12 Urine Creatinine Urine Total Protein Hep Bs Antibody, Quant Crossmatch 12/04/16 12/04/16 12/04/16 05:40 05:54 06:58 WBC RBC Hgb Hct MCV MCHC RDW Plt Count Seg Neuts % (Manual) Lymphocytes % (Manual) Monocytes % (Manual) Nucleated RBC % Seg Neutrophils # Man Lymphocytes # (Manual) Monocytes # (Manual) Percent Retic Haptoglobin PT INR Fibrinogen D-Dimer POC ABG pH 7.154 L POC ABG pCO2 27.5 L POC ABG pO2 111 H Sodium Potassium Chloride Carbon Dioxide BUN Creatinine Glucose POC Glucose > 500 H > 500 H Lactic Acid Calcium Phosphorus Magnesium Iron TIBC Total Bilirubin Direct Bilirubin AST ALT Alkaline Phosphatase Lactate Dehydrogenase CK-MB (CK-2) Troponin T C-Reactive Protein Total Protein Albumin Triglycerides Cholesterol HDL Cholesterol Vitamin B12 Urine Creatinine Urine Total Protein Hep Bs Antibody, Quant Crossmatch 12/04/16 12/04/16 12/04/16 07:49 07:55 07:55 WBC RBC Hgb Hct MCV MCHC RDW Plt Count Seg Neuts % (Manual) Lymphocytes % (Manual) Monocytes % (Manual) Nucleated RBC % Seg Neutrophils # Man Lymphocytes # (Manual) Monocytes # (Manual) Percent Retic Haptoglobin PT INR Fibrinogen D-Dimer POC ABG pH POC ABG pCO2 POC ABG pO2 Sodium Potassium 3.3 L Chloride Carbon Dioxide 9 L* BUN 53 H Creatinine 2.9 H Glucose 1229 H* POC Glucose > 500 H Lactic Acid Calcium Phosphorus Magnesium Iron TIBC Total Bilirubin Direct Bilirubin AST ALT Alkaline Phosphatase Lactate Dehydrogenase CK-MB (CK-2) Troponin T 0.111 H* D C-Reactive Protein Total Protein Albumin Triglycerides 570 H Cholesterol 221 H HDL Cholesterol 37 L Vitamin B12 Urine Creatinine Urine Total Protein Hep Bs Antibody, Quant Crossmatch 12/04/16 12/04/16 12/04/16 07:55 09:55 09:55 WBC RBC 2.90 L Hgb 8.5 L Hct 30.2 L D MCV 105 H D MCHC 28 L RDW 19.2 H Plt Count Seg Neuts % (Manual) Lymphocytes % (Manual) 11.0 L Monocytes % (Manual) Nucleated RBC % Seg Neutrophils # Man Lymphocytes # (Manual) 0.6 L Monocytes # (Manual) Percent Retic Haptoglobin PT INR Fibrinogen D-Dimer POC ABG pH POC ABG pCO2 POC ABG pO2 Sodium Potassium 3.1 L Chloride Carbon Dioxide 7 L* BUN 51 H Creatinine 3.2 H Glucose 969 H* POC Glucose Lactic Acid Calcium 10.4 H D Phosphorus Magnesium Iron TIBC Total Bilirubin Direct Bilirubin AST ALT Alkaline Phosphatase Lactate Dehydrogenase CK-MB (CK-2) 4.6 H Troponin T 0.140 H* D C-Reactive Protein Total Protein Albumin Triglycerides Cholesterol HDL Cholesterol Vitamin B12 Urine Creatinine Urine Total Protein Hep Bs Antibody, Quant Crossmatch 12/04/16 12/04/16 12/04/16 09:55 10:37 11:25 WBC RBC Hgb Hct MCV MCHC RDW Plt Count Seg Neuts % (Manual) Lymphocytes % (Manual) Monocytes % (Manual) Nucleated RBC % Seg Neutrophils # Man Lymphocytes # (Manual) Monocytes # (Manual) Percent Retic Haptoglobin PT INR Fibrinogen D-Dimer POC ABG pH 7.215 L POC ABG pCO2 18.8 L POC ABG pO2 193 H Sodium Potassium Chloride Carbon Dioxide BUN Creatinine Glucose POC Glucose Lactic Acid Calcium Phosphorus Magnesium 3.70 H Iron TIBC Total Bilirubin Direct Bilirubin AST ALT Alkaline Phosphatase Lactate Dehydrogenase CK-MB (CK-2) Troponin T C-Reactive Protein Total Protein Albumin Triglycerides Cholesterol HDL Cholesterol Vitamin B12 Urine Creatinine 29.5 H Urine Total Protein 33 H Hep Bs Antibody, Quant Crossmatch 12/04/16 12/04/16 12/04/16 12:00 12:48 13:00 WBC RBC Hgb Hct MCV MCHC RDW Plt Count Seg Neuts % (Manual) Lymphocytes % (Manual) Monocytes % (Manual) Nucleated RBC % Seg Neutrophils # Man Lymphocytes # (Manual) Monocytes # (Manual) Percent Retic Haptoglobin PT INR Fibrinogen D-Dimer POC ABG pH POC ABG pCO2 POC ABG pO2 Sodium 149 H 150 H Potassium 3.2 L 3.2 L Chloride 109.1 H Carbon Dioxide 8 L* 8 L* BUN 52 H 49 H Creatinine 3.4 H 3.1 H Glucose 723 H* 574 H* POC Glucose Lactic Acid 18.80 H* Calcium Phosphorus Magnesium Iron TIBC Total Bilirubin Direct Bilirubin AST ALT Alkaline Phosphatase Lactate Dehydrogenase CK-MB (CK-2) Troponin T C-Reactive Protein Total Protein Albumin Triglycerides Cholesterol HDL Cholesterol Vitamin B12 Urine Creatinine Urine Total Protein Hep Bs Antibody, Quant Crossmatch 12/04/16 12/04/16 12/04/16 13:01 14:41 16:06 WBC RBC Hgb Hct MCV MCHC RDW Plt Count Seg Neuts % (Manual) Lymphocytes % (Manual) Monocytes % (Manual) Nucleated RBC % Seg Neutrophils # Man Lymphocytes # (Manual) Monocytes # (Manual) Percent Retic Haptoglobin PT INR Fibrinogen D-Dimer POC ABG pH POC ABG pCO2 POC ABG pO2 Sodium 151 H Potassium 3.2 L Chloride 108.1 H Carbon Dioxide 10 L BUN 49 H Creatinine 3.0 H Glucose 383 H POC Glucose 292 H Lactic Acid Calcium Phosphorus Magnesium Iron TIBC Total Bilirubin Direct Bilirubin AST ALT Alkaline Phosphatase Lactate Dehydrogenase CK-MB (CK-2) Troponin T C-Reactive Protein 3.50 H Total Protein Albumin Triglycerides Cholesterol HDL Cholesterol Vitamin B12 Urine Creatinine Urine Total Protein Hep Bs Antibody, Quant Crossmatch 12/04/16 12/04/16 12/04/16 17:15 17:25 18:07 WBC RBC Hgb Hct MCV MCHC RDW Plt Count Seg Neuts % (Manual) Lymphocytes % (Manual) Monocytes % (Manual) Nucleated RBC % Seg Neutrophils # Man Lymphocytes # (Manual) Monocytes # (Manual) Percent Retic Haptoglobin PT INR Fibrinogen D-Dimer POC ABG pH 7.255 L POC ABG pCO2 16.9 L POC ABG pO2 169 H Sodium Potassium Chloride Carbon Dioxide BUN Creatinine Glucose POC Glucose 246 H Lactic Acid 18.50 H* Calcium Phosphorus Magnesium Iron TIBC Total Bilirubin Direct Bilirubin AST ALT Alkaline Phosphatase Lactate Dehydrogenase CK-MB (CK-2) Troponin T C-Reactive Protein Total Protein Albumin Triglycerides Cholesterol HDL Cholesterol Vitamin B12 Urine Creatinine Urine Total Protein Hep Bs Antibody, Quant Crossmatch 12/04/16 12/04/16 12/04/16 19:34 20:31 21:15 WBC RBC Hgb Hct MCV MCHC RDW Plt Count Seg Neuts % (Manual) Lymphocytes % (Manual) Monocytes % (Manual) Nucleated RBC % Seg Neutrophils # Man Lymphocytes # (Manual) Monocytes # (Manual) Percent Retic Haptoglobin PT INR Fibrinogen D-Dimer POC ABG pH POC ABG pCO2 POC ABG pO2 Sodium Potassium Chloride Carbon Dioxide BUN Creatinine Glucose POC Glucose 189 H 126 H 139 H Lactic Acid Calcium Phosphorus Magnesium Iron TIBC Total Bilirubin Direct Bilirubin AST ALT Alkaline Phosphatase Lactate Dehydrogenase CK-MB (CK-2) Troponin T C-Reactive Protein Total Protein Albumin Triglycerides Cholesterol HDL Cholesterol Vitamin B12 Urine Creatinine Urine Total Protein Hep Bs Antibody, Quant Crossmatch 12/04/16 12/04/16 12/04/16 21:25 22:37 23:35 WBC RBC Hgb Hct MCV MCHC RDW Plt Count Seg Neuts % (Manual) Lymphocytes % (Manual) Monocytes % (Manual) Nucleated RBC % Seg Neutrophils # Man Lymphocytes # (Manual) Monocytes # (Manual) Percent Retic Haptoglobin PT INR Fibrinogen D-Dimer POC ABG pH 7.294 L POC ABG pCO2 16.7 L POC ABG pO2 169 H Sodium Potassium Chloride Carbon Dioxide BUN Creatinine Glucose POC Glucose 131 H 106 H Lactic Acid Calcium Phosphorus Magnesium Iron TIBC Total Bilirubin Direct Bilirubin AST ALT Alkaline Phosphatase Lactate Dehydrogenase CK-MB (CK-2) Troponin T C-Reactive Protein Total Protein Albumin Triglycerides Cholesterol HDL Cholesterol Vitamin B12 Urine Creatinine Urine Total Protein Hep Bs Antibody, Quant Crossmatch 12/05/16 12/05/16 12/05/16 02:40 02:50 02:50 WBC RBC Hgb Hct MCV MCHC RDW Plt Count Seg Neuts % (Manual) Lymphocytes % (Manual) Monocytes % (Manual) Nucleated RBC % Seg Neutrophils # Man Lymphocytes # (Manual) Monocytes # (Manual) Percent Retic Haptoglobin PT INR Fibrinogen D-Dimer POC ABG pH POC ABG pCO2 POC ABG pO2 Sodium 151 H Potassium Chloride 113.8 H Carbon Dioxide 12 L BUN 46 H Creatinine 3.2 H Glucose 165 H POC Glucose 109 H Lactic Acid 9.80 H* Calcium 8.3 L Phosphorus Magnesium Iron TIBC Total Bilirubin Direct Bilirubin AST ALT Alkaline Phosphatase Lactate Dehydrogenase CK-MB (CK-2) Troponin T C-Reactive Protein Total Protein Albumin Triglycerides Cholesterol HDL Cholesterol Vitamin B12 Urine Creatinine Urine Total Protein Hep Bs Antibody, Quant Crossmatch 12/05/16 12/05/16 12/05/16 04:01 04:30 04:30 WBC 19.1 H RBC 2.91 L Hgb 8.0 L Hct 25.4 L MCV MCHC RDW 17.8 H Plt Count Seg Neuts % (Manual) 17.0 L Lymphocytes % (Manual) 7.0 L Monocytes % (Manual) Nucleated RBC % 3.0 H Seg Neutrophils # Man Lymphocytes # (Manual) Monocytes # (Manual) Percent Retic Haptoglobin PT INR Fibrinogen D-Dimer POC ABG pH POC ABG pCO2 POC ABG pO2 Sodium 152 H Potassium Chloride 113.5 H Carbon Dioxide 12 L BUN 47 H Creatinine 3.2 H Glucose 133 H POC Glucose 179 H Lactic Acid Calcium 8.3 L Phosphorus 1.00 L D Magnesium Iron TIBC Total Bilirubin Direct Bilirubin AST ALT Alkaline Phosphatase Lactate Dehydrogenase CK-MB (CK-2) Troponin T C-Reactive Protein Total Protein Albumin Triglycerides Cholesterol HDL Cholesterol Vitamin B12 Urine Creatinine Urine Total Protein Hep Bs Antibody, Quant Crossmatch 12/05/16 12/05/16 12/05/16 05:32 08:01 08:48 WBC RBC Hgb Hct MCV MCHC RDW Plt Count Seg Neuts % (Manual) Lymphocytes % (Manual) Monocytes % (Manual) Nucleated RBC % Seg Neutrophils # Man Lymphocytes # (Manual) Monocytes # (Manual) Percent Retic Haptoglobin PT INR Fibrinogen D-Dimer POC ABG pH POC ABG pCO2 17.6 L POC ABG pO2 62 L Sodium Potassium Chloride Carbon Dioxide BUN Creatinine Glucose POC Glucose 126 H 130 H Lactic Acid Calcium Phosphorus Magnesium Iron TIBC Total Bilirubin Direct Bilirubin AST ALT Alkaline Phosphatase Lactate Dehydrogenase CK-MB (CK-2) Troponin T C-Reactive Protein Total Protein Albumin Triglycerides Cholesterol HDL Cholesterol Vitamin B12 Urine Creatinine Urine Total Protein Hep Bs Antibody, Quant Crossmatch 12/05/16 12/05/16 12/05/16 08:54 12:01 15:15 WBC RBC Hgb Hct MCV MCHC RDW Plt Count Seg Neuts % (Manual) Lymphocytes % (Manual) Monocytes % (Manual) Nucleated RBC % Seg Neutrophils # Man Lymphocytes # (Manual) Monocytes # (Manual) Percent Retic Haptoglobin PT INR Fibrinogen D-Dimer POC ABG pH POC ABG pCO2 POC ABG pO2 Sodium Potassium Chloride Carbon Dioxide BUN Creatinine Glucose POC Glucose 157 H 117 H 166 H Lactic Acid Calcium Phosphorus Magnesium Iron TIBC Total Bilirubin Direct Bilirubin AST ALT Alkaline Phosphatase Lactate Dehydrogenase CK-MB (CK-2) Troponin T C-Reactive Protein Total Protein Albumin Triglycerides Cholesterol HDL Cholesterol Vitamin B12 Urine Creatinine Urine Total Protein Hep Bs Antibody, Quant Crossmatch 12/05/16 12/05/16 12/05/16 16:10 16:55 17:08 WBC RBC Hgb Hct MCV MCHC RDW Plt Count Seg Neuts % (Manual) Lymphocytes % (Manual) Monocytes % (Manual) Nucleated RBC % Seg Neutrophils # Man Lymphocytes # (Manual) Monocytes # (Manual) Percent Retic Haptoglobin PT INR Fibrinogen D-Dimer POC ABG pH POC ABG pCO2 POC ABG pO2 Sodium Potassium Chloride Carbon Dioxide BUN Creatinine Glucose POC Glucose 178 H 169 H Lactic Acid Calcium Phosphorus 5.00 H D Magnesium Iron TIBC Total Bilirubin Direct Bilirubin AST ALT Alkaline Phosphatase Lactate Dehydrogenase CK-MB (CK-2) Troponin T C-Reactive Protein Total Protein Albumin Triglycerides Cholesterol HDL Cholesterol Vitamin B12 Urine Creatinine Urine Total Protein Hep Bs Antibody, Quant Crossmatch 12/05/16 12/05/16 12/05/16 18:08 18:51 20:04 WBC RBC Hgb Hct MCV MCHC RDW Plt Count Seg Neuts % (Manual) Lymphocytes % (Manual) Monocytes % (Manual) Nucleated RBC % Seg Neutrophils # Man Lymphocytes # (Manual) Monocytes # (Manual) Percent Retic Haptoglobin PT INR Fibrinogen D-Dimer POC ABG pH POC ABG pCO2 POC ABG pO2 Sodium Potassium Chloride Carbon Dioxide BUN Creatinine Glucose POC Glucose 147 H 113 H 64 L Lactic Acid Calcium Phosphorus Magnesium Iron TIBC Total Bilirubin Direct Bilirubin AST ALT Alkaline Phosphatase Lactate Dehydrogenase CK-MB (CK-2) Troponin T C-Reactive Protein Total Protein Albumin Triglycerides Cholesterol HDL Cholesterol Vitamin B12 Urine Creatinine Urine Total Protein Hep Bs Antibody, Quant Crossmatch 12/05/16 12/05/16 12/05/16 21:34 22:08 23:19 WBC RBC Hgb Hct MCV MCHC RDW Plt Count Seg Neuts % (Manual) Lymphocytes % (Manual) Monocytes % (Manual) Nucleated RBC % Seg Neutrophils # Man Lymphocytes # (Manual) Monocytes # (Manual) Percent Retic Haptoglobin PT INR Fibrinogen D-Dimer POC ABG pH 7.303 L POC ABG pCO2 18.3 L POC ABG pO2 73 L Sodium Potassium Chloride Carbon Dioxide BUN Creatinine Glucose POC Glucose 141 H 200 H Lactic Acid Calcium Phosphorus Magnesium Iron TIBC Total Bilirubin Direct Bilirubin AST ALT Alkaline Phosphatase Lactate Dehydrogenase CK-MB (CK-2) Troponin T C-Reactive Protein Total Protein Albumin Triglycerides Cholesterol HDL Cholesterol Vitamin B12 Urine Creatinine Urine Total Protein Hep Bs Antibody, Quant Crossmatch 12/06/16 12/06/16 12/06/16 00:01 01:09 02:00 WBC RBC Hgb Hct MCV MCHC RDW Plt Count Seg Neuts % (Manual) Lymphocytes % (Manual) Monocytes % (Manual) Nucleated RBC % Seg Neutrophils # Man Lymphocytes # (Manual) Monocytes # (Manual) Percent Retic Haptoglobin PT INR Fibrinogen D-Dimer POC ABG pH POC ABG pCO2 POC ABG pO2 Sodium Potassium Chloride Carbon Dioxide BUN Creatinine Glucose POC Glucose 211 H 116 H 57 L Lactic Acid Calcium Phosphorus Magnesium Iron TIBC Total Bilirubin Direct Bilirubin AST ALT Alkaline Phosphatase Lactate Dehydrogenase CK-MB (CK-2) Troponin T C-Reactive Protein Total Protein Albumin Triglycerides Cholesterol HDL Cholesterol Vitamin B12 Urine Creatinine Urine Total Protein Hep Bs Antibody, Quant Crossmatch 12/06/16 12/06/16 12/06/16 04:14 04:50 04:50 WBC RBC 2.68 L Hgb 7.6 L Hct 23.2 L MCV MCHC RDW 18.9 H Plt Count Seg Neuts % (Manual) 32.0 L Lymphocytes % (Manual) Monocytes % (Manual) Nucleated RBC % 3.0 H Seg Neutrophils # Man Lymphocytes # (Manual) 0.9 L Monocytes # (Manual) Percent Retic Haptoglobin PT INR Fibrinogen D-Dimer POC ABG pH POC ABG pCO2 POC ABG pO2 Sodium Potassium 5.8 H D Chloride 111.5 H Carbon Dioxide 11 L BUN 52 H Creatinine 3.8 H Glucose 186 H POC Glucose 133 H Lactic Acid Calcium 6.5 L D Phosphorus 5.80 H Magnesium Iron TIBC Total Bilirubin Direct Bilirubin AST ALT Alkaline Phosphatase Lactate Dehydrogenase CK-MB (CK-2) Troponin T C-Reactive Protein Total Protein Albumin Triglycerides Cholesterol HDL Cholesterol Vitamin B12 Urine Creatinine Urine Total Protein Hep Bs Antibody, Quant Crossmatch 12/06/16 12/06/16 12/06/16 04:50 05:04 05:07 WBC RBC Hgb Hct MCV MCHC RDW Plt Count Seg Neuts % (Manual) Lymphocytes % (Manual) Monocytes % (Manual) Nucleated RBC % Seg Neutrophils # Man Lymphocytes # (Manual) Monocytes # (Manual) Percent Retic Haptoglobin PT INR Fibrinogen D-Dimer POC ABG pH POC ABG pCO2 13.0 L POC ABG pO2 111 H Sodium Potassium Chloride Carbon Dioxide BUN Creatinine Glucose POC Glucose 127 H Lactic Acid 6.50 H* Calcium Phosphorus Magnesium Iron TIBC Total Bilirubin Direct Bilirubin AST ALT Alkaline Phosphatase Lactate Dehydrogenase CK-MB (CK-2) Troponin T C-Reactive Protein Total Protein Albumin Triglycerides Cholesterol HDL Cholesterol Vitamin B12 Urine Creatinine Urine Total Protein Hep Bs Antibody, Quant Crossmatch 12/06/16 12/06/16 12/06/16 06:10 06:54 07:46 WBC RBC Hgb Hct MCV MCHC RDW Plt Count Seg Neuts % (Manual) Lymphocytes % (Manual) Monocytes % (Manual) Nucleated RBC % Seg Neutrophils # Man Lymphocytes # (Manual) Monocytes # (Manual) Percent Retic Haptoglobin PT INR Fibrinogen D-Dimer POC ABG pH POC ABG pCO2 POC ABG pO2 Sodium Potassium Chloride Carbon Dioxide BUN Creatinine Glucose POC Glucose 219 H 237 H 158 H Lactic Acid Calcium Phosphorus Magnesium Iron TIBC Total Bilirubin Direct Bilirubin AST ALT Alkaline Phosphatase Lactate Dehydrogenase CK-MB (CK-2) Troponin T C-Reactive Protein Total Protein Albumin Triglycerides Cholesterol HDL Cholesterol Vitamin B12 Urine Creatinine Urine Total Protein Hep Bs Antibody, Quant Crossmatch 12/06/16 12/06/16 12/06/16 08:55 10:27 11:58 WBC RBC Hgb Hct MCV MCHC RDW Plt Count Seg Neuts % (Manual) Lymphocytes % (Manual) Monocytes % (Manual) Nucleated RBC % Seg Neutrophils # Man Lymphocytes # (Manual) Monocytes # (Manual) Percent Retic Haptoglobin PT INR Fibrinogen D-Dimer POC ABG pH POC ABG pCO2 POC ABG pO2 Sodium Potassium Chloride Carbon Dioxide BUN Creatinine Glucose POC Glucose 40 L 128 H 144 H Lactic Acid Calcium Phosphorus Magnesium Iron TIBC Total Bilirubin Direct Bilirubin AST ALT Alkaline Phosphatase Lactate Dehydrogenase CK-MB (CK-2) Troponin T C-Reactive Protein Total Protein Albumin Triglycerides Cholesterol HDL Cholesterol Vitamin B12 Urine Creatinine Urine Total Protein Hep Bs Antibody, Quant Crossmatch 12/06/16 12/06/16 12/06/16 18:14 19:00 19:06 WBC RBC Hgb Hct MCV MCHC RDW Plt Count Seg Neuts % (Manual) Lymphocytes % (Manual) Monocytes % (Manual) Nucleated RBC % Seg Neutrophils # Man Lymphocytes # (Manual) Monocytes # (Manual) Percent Retic Haptoglobin PT INR Fibrinogen D-Dimer POC ABG pH POC ABG pCO2 POC ABG pO2 Sodium 149 H Potassium 5.6 H Chloride 115.9 H Carbon Dioxide 13 L BUN 56 H Creatinine 4.3 H Glucose 124 H POC Glucose 55 L 148 H Lactic Acid Calcium 6.0 L Phosphorus Magnesium Iron TIBC Total Bilirubin Direct Bilirubin AST ALT Alkaline Phosphatase Lactate Dehydrogenase CK-MB (CK-2) Troponin T C-Reactive Protein Total Protein Albumin Triglycerides Cholesterol HDL Cholesterol Vitamin B12 Urine Creatinine Urine Total Protein Hep Bs Antibody, Quant Crossmatch 12/06/16 12/06/16 12/07/16 21:24 21:51 02:32 WBC RBC Hgb Hct MCV MCHC RDW Plt Count Seg Neuts % (Manual) Lymphocytes % (Manual) Monocytes % (Manual) Nucleated RBC % Seg Neutrophils # Man Lymphocytes # (Manual) Monocytes # (Manual) Percent Retic Haptoglobin PT INR Fibrinogen D-Dimer POC ABG pH POC ABG pCO2 17.0 L POC ABG pO2 142 H Sodium Potassium Chloride Carbon Dioxide BUN Creatinine Glucose POC Glucose 107 H 175 H Lactic Acid Calcium Phosphorus Magnesium Iron TIBC Total Bilirubin Direct Bilirubin AST ALT Alkaline Phosphatase Lactate Dehydrogenase CK-MB (CK-2) Troponin T C-Reactive Protein Total Protein Albumin Triglycerides Cholesterol HDL Cholesterol Vitamin B12 Urine Creatinine Urine Total Protein Hep Bs Antibody, Quant Crossmatch 0712/07/16 12/07/16 05:01 05:25 06:00 WBC RBC 2.52 L Hgb 7.1 L Hct 22.1 L MCV MCHC RDW 19.3 H Plt Count 90 L Seg Neuts % (Manual) 75.0 H Lymphocytes % (Manual) 11.0 L Monocytes % (Manual) Nucleated RBC % Seg Neutrophils # Man Lymphocytes # (Manual) 0.7 L Monocytes # (Manual) Percent Retic Haptoglobin PT INR Fibrinogen D-Dimer POC ABG pH 7.300 L POC ABG pCO2 17.1 L POC ABG pO2 140 H Sodium Potassium Chloride Carbon Dioxide BUN Creatinine Glucose POC Glucose 279 H Lactic Acid Calcium Phosphorus Magnesium Iron TIBC Total Bilirubin Direct Bilirubin AST ALT Alkaline Phosphatase Lactate Dehydrogenase CK-MB (CK-2) Troponin T C-Reactive Protein Total Protein Albumin Triglycerides Cholesterol HDL Cholesterol Vitamin B12 Urine Creatinine Urine Total Protein Hep Bs Antibody, Quant Crossmatch 12/07/16 12/07/16 12/07/16 06:00 06:00 07:30 WBC RBC Hgb Hct MCV MCHC RDW Plt Count Seg Neuts % (Manual) Lymphocytes % (Manual) Monocytes % (Manual) Nucleated RBC % Seg Neutrophils # Man Lymphocytes # (Manual) Monocytes # (Manual) Percent Retic Haptoglobin PT INR Fibrinogen D-Dimer POC ABG pH POC ABG pCO2 POC ABG pO2 Sodium Potassium Chloride Carbon Dioxide BUN Creatinine Glucose POC Glucose Lactic Acid 6.90 H* Calcium Phosphorus 6.80 H Magnesium Iron TIBC Total Bilirubin Direct Bilirubin AST ALT Alkaline Phosphatase Lactate Dehydrogenase CK-MB (CK-2) Troponin T C-Reactive Protein 39.40 H Total Protein Albumin Triglycerides Cholesterol HDL Cholesterol Vitamin B12 Urine Creatinine Urine Total Protein Hep Bs Antibody, Quant Crossmatch 12/07/16 12/07/16 12/07/16 08:40 10:53 14:31 WBC RBC Hgb Hct MCV MCHC RDW Plt Count Seg Neuts % (Manual) Lymphocytes % (Manual) Monocytes % (Manual) Nucleated RBC % Seg Neutrophils # Man Lymphocytes # (Manual) Monocytes # (Manual) Percent Retic Haptoglobin PT INR Fibrinogen D-Dimer POC ABG pH POC ABG pCO2 POC ABG pO2 Sodium Potassium 7.0 H* D Chloride 112.4 H Carbon Dioxide 8 L* BUN 61 H Creatinine 5.1 H Glucose 213 H POC Glucose 353 H 52 L Lactic Acid Calcium 5.8 L* Phosphorus Magnesium Iron TIBC Total Bilirubin Direct Bilirubin AST ALT Alkaline Phosphatase Lactate Dehydrogenase CK-MB (CK-2) Troponin T C-Reactive Protein Total Protein Albumin Triglycerides Cholesterol HDL Cholesterol Vitamin B12 Urine Creatinine Urine Total Protein Hep Bs Antibody, Quant Crossmatch 12/07/16 12/07/16 12/07/16 14:45 15:33 16:22 WBC RBC Hgb Hct MCV MCHC RDW Plt Count Seg Neuts % (Manual) Lymphocytes % (Manual) Monocytes % (Manual) Nucleated RBC % Seg Neutrophils # Man Lymphocytes # (Manual) Monocytes # (Manual) Percent Retic Haptoglobin PT 17.5 H INR 1.44 H Fibrinogen D-Dimer POC ABG pH POC ABG pCO2 POC ABG pO2 Sodium Potassium Chloride Carbon Dioxide BUN Creatinine Glucose POC Glucose < 40 L 118 H Lactic Acid Calcium Phosphorus Magnesium Iron TIBC Total Bilirubin Direct Bilirubin AST ALT Alkaline Phosphatase Lactate Dehydrogenase CK-MB (CK-2) Troponin T C-Reactive Protein Total Protein Albumin Triglycerides Cholesterol HDL Cholesterol Vitamin B12 Urine Creatinine Urine Total Protein Hep Bs Antibody, Quant Crossmatch 12/07/16 12/07/16 12/07/16 21:35 21:35 21:58 WBC RBC Hgb Hct MCV MCHC RDW Plt Count Seg Neuts % (Manual) Lymphocytes % (Manual) Monocytes % (Manual) Nucleated RBC % Seg Neutrophils # Man Lymphocytes # (Manual) Monocytes # (Manual) Percent Retic Haptoglobin PT INR Fibrinogen D-Dimer POC ABG pH POC ABG pCO2 POC ABG pO2 Sodium 150 H Potassium 3.3 L D Chloride 111.4 H Carbon Dioxide 21 L D BUN 22 H Creatinine 2.6 H Glucose 23 L* POC Glucose < 40 L Lactic Acid Calcium Phosphorus Magnesium Iron TIBC Total Bilirubin 1.40 H Direct Bilirubin 0.9 H AST 94 H ALT 142 H Alkaline Phosphatase 249 H Lactate Dehydrogenase CK-MB (CK-2) Troponin T C-Reactive Protein Total Protein 4.6 L D Albumin 2.1 L Triglycerides Cholesterol HDL Cholesterol Vitamin B12 Urine Creatinine Urine Total Protein Hep Bs Antibody, Quant Crossmatch 12/07/16 12/08/16 12/08/16 23:31 04:43 04:50 WBC RBC 2.35 L Hgb 6.6 L Hct 20.1 L MCV MCHC RDW 17.8 H Plt Count 48 L Seg Neuts % (Manual) Lymphocytes % (Manual) Monocytes % (Manual) Nucleated RBC % Seg Neutrophils # Man Lymphocytes # (Manual) 0.9 L Monocytes # (Manual) Percent Retic Haptoglobin PT INR Fibrinogen D-Dimer POC ABG pH 7.586 H POC ABG pCO2 17.7 L POC ABG pO2 150 H Sodium Potassium Chloride Carbon Dioxide BUN Creatinine Glucose POC Glucose 42 L Lactic Acid Calcium Phosphorus Magnesium Iron TIBC Total Bilirubin Direct Bilirubin AST ALT Alkaline Phosphatase Lactate Dehydrogenase CK-MB (CK-2) Troponin T C-Reactive Protein Total Protein Albumin Triglycerides Cholesterol HDL Cholesterol Vitamin B12 Urine Creatinine Urine Total Protein Hep Bs Antibody, Quant Crossmatch 12/08/16 12/08/16 12/08/16 04:50 04:59 06:54 WBC RBC Hgb Hct MCV MCHC RDW Plt Count Seg Neuts % (Manual) Lymphocytes % (Manual) Monocytes % (Manual) Nucleated RBC % Seg Neutrophils # Man Lymphocytes # (Manual) Monocytes # (Manual) Percent Retic Haptoglobin PT INR Fibrinogen D-Dimer POC ABG pH POC ABG pCO2 POC ABG pO2 Sodium 149 H Potassium 3.2 L Chloride 111.8 H Carbon Dioxide 17 L BUN 26 H Creatinine 3.4 H Glucose 163 H POC Glucose 204 H 203 H Lactic Acid Calcium 7.7 L Phosphorus 2.40 L D Magnesium Iron TIBC Total Bilirubin Direct Bilirubin AST ALT Alkaline Phosphatase Lactate Dehydrogenase CK-MB (CK-2) Troponin T C-Reactive Protein Total Protein Albumin Triglycerides Cholesterol HDL Cholesterol Vitamin B12 Urine Creatinine Urine Total Protein Hep Bs Antibody, Quant Crossmatch 12/08/16 12/08/16 12/08/16 08:04 08:46 08:46 WBC RBC Hgb Hct MCV MCHC RDW Plt Count Seg Neuts % (Manual) Lymphocytes % (Manual) Monocytes % (Manual) Nucleated RBC % Seg Neutrophils # Man Lymphocytes # (Manual) Monocytes # (Manual) Percent Retic Haptoglobin PT INR Fibrinogen D-Dimer POC ABG pH POC ABG pCO2 POC ABG pO2 Sodium 147 H Potassium 2.9 L* Chloride 110.6 H Carbon Dioxide 17 L BUN 28 H Creatinine 3.6 H Glucose 127 H POC Glucose 205 H Lactic Acid Calcium 7.3 L Phosphorus Magnesium Iron TIBC Total Bilirubin Direct Bilirubin AST ALT Alkaline Phosphatase Lactate Dehydrogenase CK-MB (CK-2) Troponin T C-Reactive Protein Total Protein Albumin Triglycerides Cholesterol HDL Cholesterol Vitamin B12 Urine Creatinine Urine Total Protein Hep Bs Antibody, Quant Crossmatch See Detail 12/08/16 12/08/16 12/08/16 12:36 19:00 19:00 WBC RBC Hgb Hct MCV MCHC RDW Plt Count Seg Neuts % (Manual) Lymphocytes % (Manual) Monocytes % (Manual) Nucleated RBC % Seg Neutrophils # Man Lymphocytes # (Manual) Monocytes # (Manual) Percent Retic Haptoglobin PT 15.3 H INR 1.22 H Fibrinogen 563 H D-Dimer 5507.36 H POC ABG pH POC ABG pCO2 POC ABG pO2 Sodium Potassium Chloride Carbon Dioxide 21 L BUN Creatinine 1.7 H D Glucose 155 H POC Glucose 181 H Lactic Acid Calcium Phosphorus Magnesium Iron TIBC Total Bilirubin Direct Bilirubin AST ALT Alkaline Phosphatase Lactate Dehydrogenase CK-MB (CK-2) Troponin T C-Reactive Protein Total Protein Albumin Triglycerides Cholesterol HDL Cholesterol Vitamin B12 Urine Creatinine Urine Total Protein Hep Bs Antibody, Quant Crossmatch 12/08/16 12/08/16 12/08/16 19:00 19:00 21:30 WBC RBC 2.76 L Hgb 7.8 L Hct 23.7 L MCV MCHC RDW 17.0 H Plt Count 38 L Seg Neuts % (Manual) Lymphocytes % (Manual) Monocytes % (Manual) Nucleated RBC % Seg Neutrophils # Man Lymphocytes # (Manual) Monocytes # (Manual) Percent Retic Haptoglobin 271 H PT INR Fibrinogen D-Dimer POC ABG pH POC ABG pCO2 POC ABG pO2 Sodium Potassium Chloride Carbon Dioxide BUN Creatinine Glucose POC Glucose Lactic Acid Calcium Phosphorus Magnesium Iron TIBC Total Bilirubin Direct Bilirubin AST ALT Alkaline Phosphatase Lactate Dehydrogenase 382 H CK-MB (CK-2) Troponin T C-Reactive Protein Total Protein Albumin Triglycerides Cholesterol HDL Cholesterol Vitamin B12 Urine Creatinine Urine Total Protein Hep Bs Antibody, Quant Crossmatch 12/08/16 12/08/16 12/09/16 23:32 23:44 05:22 WBC RBC Hgb Hct MCV MCHC RDW Plt Count Seg Neuts % (Manual) Lymphocytes % (Manual) Monocytes % (Manual) Nucleated RBC % Seg Neutrophils # Man Lymphocytes # (Manual) Monocytes # (Manual) Percent Retic Haptoglobin PT INR Fibrinogen D-Dimer POC ABG pH 7.498 H POC ABG pCO2 25.2 L POC ABG pO2 137 H Sodium Potassium Chloride Carbon Dioxide BUN Creatinine Glucose POC Glucose 311 H 113 H Lactic Acid Calcium Phosphorus Magnesium Iron TIBC Total Bilirubin Direct Bilirubin AST ALT Alkaline Phosphatase Lactate Dehydrogenase CK-MB (CK-2) Troponin T C-Reactive Protein Total Protein Albumin Triglycerides Cholesterol HDL Cholesterol Vitamin B12 Urine Creatinine Urine Total Protein Hep Bs Antibody, Quant Crossmatch 12/09/16 12/09/16 12/09/16 06:00 11:29 11:59 WBC RBC Hgb Hct MCV MCHC RDW Plt Count Seg Neuts % (Manual) Lymphocytes % (Manual) Monocytes % (Manual) Nucleated RBC % Seg Neutrophils # Man Lymphocytes # (Manual) Monocytes # (Manual) Percent Retic 0.23 L Haptoglobin PT INR Fibrinogen D-Dimer POC ABG pH POC ABG pCO2 POC ABG pO2 Sodium Potassium Chloride 110.2 H Carbon Dioxide 18 L BUN 19 H Creatinine 2.5 H Glucose 105 H POC Glucose 254 H Lactic Acid Calcium Phosphorus 2.00 L Magnesium Iron TIBC Total Bilirubin Direct Bilirubin AST ALT Alkaline Phosphatase Lactate Dehydrogenase CK-MB (CK-2) Troponin T C-Reactive Protein Total Protein Albumin Triglycerides Cholesterol HDL Cholesterol Vitamin B12 Urine Creatinine Urine Total Protein Hep Bs Antibody, Quant Crossmatch 12/09/16 12/09/16 12/09/16 12:02 13:27 13:27 WBC RBC Hgb Hct MCV MCHC RDW Plt Count Seg Neuts % (Manual) Lymphocytes % (Manual) Monocytes % (Manual) Nucleated RBC % Seg Neutrophils # Man Lymphocytes # (Manual) Monocytes # (Manual) Percent Retic Haptoglobin PT INR Fibrinogen D-Dimer POC ABG pH 7.326 L POC ABG pCO2 POC ABG pO2 115 H Sodium Potassium Chloride Carbon Dioxide BUN Creatinine Glucose POC Glucose Lactic Acid Calcium Phosphorus Magnesium Iron 15 L TIBC 134 L Total Bilirubin Direct Bilirubin AST ALT Alkaline Phosphatase Lactate Dehydrogenase CK-MB (CK-2) Troponin T C-Reactive Protein Total Protein Albumin Triglycerides Cholesterol HDL Cholesterol Vitamin B12 > 2000 H Urine Creatinine Urine Total Protein Hep Bs Antibody, Quant Crossmatch 12/09/16 12/09/16 12/09/16 13:27 16:28 23:27 WBC RBC Hgb Hct MCV MCHC RDW Plt Count Seg Neuts % (Manual) Lymphocytes % (Manual) Monocytes % (Manual) Nucleated RBC % Seg Neutrophils # Man Lymphocytes # (Manual) Monocytes # (Manual) Percent Retic Haptoglobin PT INR Fibrinogen D-Dimer POC ABG pH POC ABG pCO2 POC ABG pO2 Sodium Potassium Chloride Carbon Dioxide BUN Creatinine Glucose POC Glucose 199 H 247 H Lactic Acid Calcium Phosphorus Magnesium Iron TIBC Total Bilirubin Direct Bilirubin AST ALT Alkaline Phosphatase Lactate Dehydrogenase CK-MB (CK-2) Troponin T C-Reactive Protein Total Protein Albumin Triglycerides Cholesterol HDL Cholesterol Vitamin B12 Urine Creatinine Urine Total Protein Hep Bs Antibody, Quant <5 L Crossmatch 12/09/16 12/10/16 12/10/16 Unknown 05:36 09:55 WBC 11.3 H 21.2 H RBC 2.92 L 3.37 L Hgb 8.4 L 9.6 L Hct 25.3 L 29.5 L MCV MCHC RDW 16.9 H 16.3 H Plt Count 31 L 102 L D Seg Neuts % (Manual) Lymphocytes % (Manual) Monocytes % (Manual) Nucleated RBC % Seg Neutrophils # Man Lymphocytes # (Manual) Monocytes # (Manual) Percent Retic Haptoglobin PT INR Fibrinogen D-Dimer POC ABG pH POC ABG pCO2 POC ABG pO2 Sodium Potassium Chloride Carbon Dioxide BUN Creatinine Glucose POC Glucose 248 H Lactic Acid Calcium Phosphorus Magnesium Iron TIBC Total Bilirubin Direct Bilirubin AST ALT Alkaline Phosphatase Lactate Dehydrogenase CK-MB (CK-2) Troponin T C-Reactive Protein Total Protein Albumin Triglycerides Cholesterol HDL Cholesterol Vitamin B12 Urine Creatinine Urine Total Protein Hep Bs Antibody, Quant Crossmatch 12/10/16 12/10/16 12/10/16 09:55 11:49 17:56 WBC RBC Hgb Hct MCV MCHC RDW Plt Count Seg Neuts % (Manual) Lymphocytes % (Manual) Monocytes % (Manual) Nucleated RBC % Seg Neutrophils # Man Lymphocytes # (Manual) Monocytes # (Manual) Percent Retic Haptoglobin PT INR Fibrinogen D-Dimer POC ABG pH POC ABG pCO2 POC ABG pO2 Sodium Potassium Chloride 107.4 H Carbon Dioxide 21 L BUN 37 H Creatinine 4.2 H D Glucose 174 H POC Glucose 265 H 118 H Lactic Acid Calcium Phosphorus Magnesium Iron TIBC Total Bilirubin Direct Bilirubin AST ALT Alkaline Phosphatase Lactate Dehydrogenase CK-MB (CK-2) Troponin T C-Reactive Protein Total Protein Albumin Triglycerides Cholesterol HDL Cholesterol Vitamin B12 Urine Creatinine Urine Total Protein Hep Bs Antibody, Quant Crossmatch 12/10/16 12/11/16 12/11/16 23:44 04:30 04:30 WBC 23.5 H RBC 3.46 L Hgb 9.7 L Hct 30.1 L MCV MCHC RDW 16.4 H Plt Count 115 L Seg Neuts % (Manual) 84.0 H Lymphocytes % (Manual) 5.0 L Monocytes % (Manual) 10.0 H Nucleated RBC % 1.0 H Seg Neutrophils # Man 19.7 H Lymphocytes # (Manual) Monocytes # (Manual) 2.4 H Percent Retic Haptoglobin PT INR Fibrinogen D-Dimer POC ABG pH POC ABG pCO2 POC ABG pO2 Sodium Potassium Chloride Carbon Dioxide 21 L BUN 50 H Creatinine 4.8 H Glucose 303 H POC Glucose 378 H Lactic Acid Calcium 8.2 L Phosphorus Magnesium Iron TIBC Total Bilirubin Direct Bilirubin AST ALT Alkaline Phosphatase Lactate Dehydrogenase CK-MB (CK-2) Troponin T C-Reactive Protein Total Protein Albumin Triglycerides Cholesterol HDL Cholesterol Vitamin B12 Urine Creatinine Urine Total Protein Hep Bs Antibody, Quant Crossmatch 12/11/16 12/11/16 05:33 12:48 WBC RBC Hgb Hct MCV MCHC RDW Plt Count Seg Neuts % (Manual) Lymphocytes % (Manual) Monocytes % (Manual) Nucleated RBC % Seg Neutrophils # Man Lymphocytes # (Manual) Monocytes # (Manual) Percent Retic Haptoglobin PT INR Fibrinogen D-Dimer POC ABG pH POC ABG pCO2 POC ABG pO2 Sodium Potassium Chloride Carbon Dioxide BUN Creatinine Glucose POC Glucose 335 H 325 H Lactic Acid Calcium Phosphorus Magnesium Iron TIBC Total Bilirubin Direct Bilirubin AST ALT Alkaline Phosphatase Lactate Dehydrogenase CK-MB (CK-2) Troponin T C-Reactive Protein Total Protein Albumin Triglycerides Cholesterol HDL Cholesterol Vitamin B12 Urine Creatinine Urine Total Protein Hep Bs Antibody, Quant Crossmatch
--- NOTE | 2016-12-11 14:50 | Progress Note ---
Assessment and Plan Assessment and plan: Patient is a 46-year-old woman with history of insulin-dependent diabetes mellitus, hypertension, recent SAH and dyslipidemia who presented with DKA, AMS and STEMI with V. fib arrest requiring IV amiodarone suppression. She intubated and she was on IV insulin drip for documented DKA, Levophed, IV vancomycin and propofol drip. She has a right groin triple-lumen catheter, Short and NG tube. ET tube removed. Extubated 12/09/16 doing well. Off pressors, diprivan. -Cardiac arrest with V. fib: Cardiology is following -ARF, ATN, poa: renal is following, treated with hemodialysis -Acute hypoxic respiratory failure, intubated: [employer] is following -Cardiac arrest was STEMI: Cardiology is following -Suspected DKA: insulin drip -Metabolic Acidosis, treat the DKA -Acute metabolic encephalopathy, poa -Leukocytosis +GNR in trach aspirate, pseudomonas aeruginosa: ID is following on IV Merrem -DVT prophylaxis: SCDs only due to recent SAH -Thrombocytopenia due to sepsis, improved status post platelet transfusion -Acute on chronic anemia of chronic disease s/p 2 unit of prbc, monitoring closely poor guarded, doing better today. d/w Dr. Lisa lugo to transfer out the ICU History Interval history: Patient seen and examined. Follow up on cardiac arrest, Imaging, old records, testing, labs, nursing notes reviewed. Hospitalist Physical - Physical exam Narrative exam: GEN: NAD, AWAKE, ALERT, ORIENTATED x 3 CVS: Regular tachycardic, NORMAL S1S2 LUNGS/CHEST: NORMAL CHEST EXPANSION B, improved ENTRY B ABD: SOFT, NTND, GBS, NO REBOUND OR GUARDING MSK: FROM X 4 EXTREMITIES NEURO: CN 2-12 GROSSLY INTACT, NO new FOCAL DEFICITS PSY: CALM - Constitutional Vitals: Temp Pulse Resp BP Pulse Ox 98.1 F 112 H 26 H 132/79 100 12/11/16 13:50 12/11/16 14:32 12/11/16 13:50 12/11/16 14:32 12/11/16 13:50 General appearance: Present: no acute distress Results - Labs CBC & Chem 7: 12/11/16 04:30 12/11/16 04:30 Labs: Laboratory Last Values WBC 23.5 K/mm3 (4.5-11.0) H 12/11/16 04:30 RBC 3.46 M/mm3 (3.65-5.03) L 12/11/16 04:30 Hgb 9.7 gm/dl (10.1-14.3) L 12/11/16 04:30 Hct 30.1 % (30.3-42.9) L 12/11/16 04:30 MCV 87 fl (79-97) 12/11/16 04:30 MCH 28 pg (28-32) 12/11/16 04:30 MCHC 32 % (30-34) 12/11/16 04:30 RDW 16.4 % (13.2-15.2) H 12/11/16 04:30 Plt Count 115 K/mm3 (140-440) L 12/11/16 04:30 Add Manual Diff Complete 12/11/16 04:30 Total Counted 100 12/11/16 04:30 Seg Neuts % (Manual) 84.0 % (40.0-70.0) H 12/11/16 04:30 Band Neutrophils % 0 % 12/11/16 04:30 Lymphocytes % (Manual) 5.0 % (13.4-35.0) L 12/11/16 04:30 Reactive Lymphs % (Man) 0 % 12/11/16 04:30 Monocytes % (Manual) 10.0 % (0.0-7.3) H 12/11/16 04:30 Eosinophils % (Manual) 1.0 % (0.0-4.3) 12/11/16 04:30 Basophils % (Manual) 0 % (0.0-1.8) 12/11/16 04:30 Metamyelocytes % 0 % 12/11/16 04:30 Myelocytes % 0 % 12/11/16 04:30 Promyelocytes % 0 % 12/11/16 04:30 Blast Cells % 0 % 12/11/16 04:30 Nucleated RBC % 1.0 % (0.0-0.9) H 12/11/16 04:30 Seg Neutrophils # Man 19.7 K/mm3 (1.8-7.7) H 12/11/16 04:30 Band Neutrophils # 0.0 K/mm3 12/11/16 04:30 Lymphocytes # (Manual) 1.2 K/mm3 (1.2-5.4) 12/11/16 04:30 Abs React Lymphs (Man) 0.0 K/mm3 12/11/16 04:30 Monocytes # (Manual) 2.4 K/mm3 (0.0-0.8) H 12/11/16 04:30 Eosinophils # (Manual) 0.2 K/mm3 (0.0-0.4) 12/11/16 04:30 Basophils # (Manual) 0.0 K/mm3 (0.0-0.1) 12/11/16 04:30 Metamyelocytes # 0.0 K/mm3 12/11/16 04:30 Myelocytes # 0.0 K/mm3 12/11/16 04:30 Promyelocytes # 0.0 K/mm3 12/11/16 04:30 Blast Cells # 0.0 K/mm3 12/11/16 04:30 WBC Morphology Not Reportable 12/11/16 04:30 Hypersegmented Neuts Not Reportable 12/11/16 04:30 Hyposegmented Neuts Not Reportable 12/11/16 04:30 Hypogranular Neuts Not Reportable 12/11/16 04:30 Smudge Cells Not Reportable 12/11/16 04:30 Toxic Granulation Not Reportable 12/11/16 04:30 Toxic Vacuolation Not Reportable 12/11/16 04:30 Dohle Bodies Not Reportable 12/11/16 04:30 Pelger-Huet Anomaly Not Reportable 12/11/16 04:30 Mary Rods Not Reportable 12/11/16 04:30 Platelet Estimate Appears decreased 12/11/16 04:30 Clumped Platelets Not Reportable 12/11/16 04:30 Plt Clumps, EDTA Not Reportable 12/11/16 04:30 Large Platelets Not Reportable 12/11/16 04:30 Giant Platelets Not Reportable 12/11/16 04:30 Platelet Satelliting Not Reportable 12/11/16 04:30 Plt Morphology Comment Not Reportable 12/11/16 04:30 RBC Morphology Not Reportable 12/11/16 04:30 Dimorphic RBCs Not Reportable 12/11/16 04:30 Polychromasia Not Reportable 12/11/16 04:30 Hypochromasia Few 12/11/16 04:30 Poikilocytosis 1+ 12/11/16 04:30 Anisocytosis 1+ 12/11/16 04:30 Microcytosis Not Reportable 12/11/16 04:30 Macrocytosis Not Reportable 12/11/16 04:30 Spherocytes Not Reportable 12/11/16 04:30 Pappenheimer Bodies Not Reportable 12/11/16 04:30 Sickle Cells Not Reportable 12/11/16 04:30 Target Cells Rare 12/11/16 04:30 Tear Drop Cells Not Reportable 12/11/16 04:30 Ovalocytes Not Reportable 12/11/16 04:30 Helmet Cells Not Reportable 12/11/16 04:30 Landers-Blaine Bodies Not Reportable 12/11/16 04:30 [place] Rings Not Reportable 12/11/16 04:30 Jerri Cells Not Reportable 12/11/16 04:30 Bite Cells Not Reportable 12/11/16 04:30 Crenated Cell Not Reportable 12/11/16 04:30 Elliptocytes Not Reportable 12/11/16 04:30 Acanthocytes (Spur) Not Reportable 12/11/16 04:30 Rouleaux Not Reportable 12/11/16 04:30 Hemoglobin C Crystals Not Reportable 12/11/16 04:30 Schistocytes Not Reportable 12/11/16 04:30 Malaria parasites Not Reportable 12/11/16 04:30 Percent Retic 0.23 % (0.78-2.58) L 12/09/16 11:29 Michael Bodies Not Reportable 12/11/16 04:30 Haptoglobin 271 mg/dL (43-212) H 12/08/16 21:30 Hem Pathologist Commnt No 12/11/16 04:30 PT 15.3 Sec. (12.2-14.9) H 12/08/16 19:00 INR 1.22 (0.87-1.13) H 12/08/16 19:00 APTT 36.2 Sec. (24.2-36.6) 12/08/16 19:00 Fibrinogen 563 mg/dl (211-480) H 12/08/16 19:00 D-Dimer 5507.36 ng/mlDDU (0-234) H 12/08/16 19:00 POC ABG pH 7.326 (7.35-7.45) L 12/09/16 12:02 POC ABG pCO2 37.7 (35-45) 12/09/16 12:02 POC ABG pO2 115 (80-105) H 12/09/16 12:02 POC ABG HCO3 19.7 12/09/16 12:02 POC ABG Total CO2 21 12/09/16 12:02 POC ABG O2 Sat 98 12/09/16 12:02 POC ABG Base Excess -6 12/09/16 12:02 FiO2 30 % 12/09/16 12:02 Sodium 143 mmol/L (137-145) 12/11/16 04:30 Potassium 3.9 mmol/L (3.6-5.0) 12/11/16 04:30 Chloride 104.5 mmol/L (98-107) 12/11/16 04:30 Carbon Dioxide 21 mmol/L (22-30) L 12/11/16 04:30 Anion Gap 21 mmol/L 12/11/16 04:30 BUN 50 mg/dL (7-17) H 12/11/16 04:30 Creatinine 4.8 mg/dL (0.7-1.2) H 12/11/16 04:30 Estimated GFR 12 ml/min 12/11/16 04:30 BUN/Creatinine Ratio 10.41 % 12/11/16 04:30 Glucose 303 mg/dL (65-100) H 12/11/16 04:30 POC Glucose 325 (70-105) H 12/11/16 12:48 Lactic Acid 6.90 mmol/L (0.7-2.0) H* 12/07/16 07:30 Calcium 8.2 mg/dL (8.4-10.2) L 12/11/16 04:30 Phosphorus 2.50 mg/dL (2.5-4.5) 12/11/16 04:30 Magnesium 1.90 mg/dL (1.7-2.3) 12/11/16 04:30 Iron 15 ug/dL (37-170) L 12/09/16 13:27 TIBC 134 mcg/dL (250-450) L 12/09/16 13:27 Ferritin 360.1 ng/mL (13.0-400.0) 12/09/16 13:27 Total Bilirubin 1.40 mg/dL (0.1-1.2) H 12/07/16 21:35 Direct Bilirubin 0.9 mg/dL (0-0.2) H 12/07/16 21:35 Indirect Bilirubin 0.5 mg/dL 12/07/16 21:35 AST 94 units/L (5-40) H 12/07/16 21:35 ALT 142 units/L (7-56) H 12/07/16 21:35 Alkaline Phosphatase 249 units/L (35-129) H 12/07/16 21:35 Lactate Dehydrogenase 382 units/L (91-180) H 12/08/16 19:00 Total Creatine Kinase 123 units/L (30-135) 12/04/16 09:55 CK-MB (CK-2) 4.6 ng/mL (0.0-4.0) H 12/04/16 09:55 CK-MB (CK-2) Rel Index 3.7 (0-4) 12/04/16 09:55 Troponin T 0.140 ng/mL (0.00-0.029) H* D 12/04/16 09:55 C-Reactive Protein 39.40 mg/dL (0.00-1.30) H 12/07/16 06:00 Total Protein 4.6 g/dL (6.3-8.2) L D 12/07/16 21:35 Albumin 2.1 g/dL (3.9-5) L 12/07/16 21:35 Albumin/Globulin Ratio 0.8 % 12/07/16 21:35 Triglycerides 570 mg/dL (2-149) H 12/04/16 07:55 Cholesterol 221 mg/dL (50-199) H 12/04/16 07:55 LDL Cholesterol Direct TNR 12/04/16 07:55 HDL Cholesterol 37 mg/dL (40-59) L 12/04/16 07:55 Cholesterol/HDL Ratio 5.97 % 12/04/16 07:55 Vitamin B12 > 2000 pg/mL (211-911) H 12/09/16 13:27 Folate 8.10 ng/mL (7.3-26.0) 12/09/16 13:27 TSH 1.600 mlU/mL (0.270-4.200) 12/03/16 23:20 Urine Color Yellow (Yellow) 12/04/16 11:25 Urine Turbidity Slightly-cloudy (Clear) 12/04/16 11:25 Urine pH 5.0 (5.0-7.0) 12/04/16 11:25 Ur Specific [place] 1.018 (1.003-1.030) 12/04/16 11:25 Urine Protein 30 mg/dl mg/dL (Negative) 12/04/16 11:25 Urine Glucose (UA) >=500 mg/dL (Negative) 12/04/16 11:25 Urine Ketones Tr mg/dL (Negative) 12/04/16 11:25 Urine Blood Sm (Negative) 12/04/16 11:25 Urine Nitrite Neg (Negative) 12/04/16 11:25 Urine Bilirubin Neg (Negative) 12/04/16 11:25 Urine Urobilinogen < 2.0 mg/dL (<2.0) 12/04/16 11:25 Ur Leukocyte Esterase Neg (Negative) 12/04/16 11:25 Urine WBC (Auto) 4.0 /HPF (0.0-6.0) 12/04/16 11:25 Urine RBC (Auto) 2.0 /HPF (0.0-6.0) 12/04/16 11:25 U Epithel Cells (Auto) < 1.0 /HPF (0-13.0) 12/04/16 11:25 Urine Mucus Few /HPF 12/04/16 11:25 Urine Osmolality 419 Mosm/kg 12/04/16 11:25 Urine Creatinine 29.5 mg/dL (0.1-20.0) H 12/04/16 11:25 Protein/Creatinin Ratio 1.12 12/04/16 11:25 Urine Sodium 26 mEq/L 12/04/16 11:25 Urine Total Protein 33 mg/dL (5-11.8) H 12/04/16 11:25 Urine Opiates Screen Presumptive negative 12/04/16 11:25 Urine Methadone Screen Presumptive negative 12/04/16 11:25 Ur Barbiturates Screen Presumptive negative 12/04/16 11:25 Ur Phencyclidine Scrn Presumptive negative 12/04/16 11:25 Ur Amphetamines Screen Presumptive negative 12/04/16 11:25 U Benzodiazepines Scrn Presumptive negative 12/04/16 11:25 Urine Cocaine Screen Presumptive negative 12/04/16 11:25 U Marijuana (THC) Screen Presumptive positive 12/04/16 11:25 Drugs of Abuse Note Disclamer 12/04/16 11:25 Hep Bs Antigen Non-reactive (Negative) 12/09/16 13:27 Hep Bs Antibody, Quant <5 mIU/mL (>=10) L 12/09/16 13:27 Hep B Core Total Ab Nonreactive (Nonreactive) 12/09/16 13:27 Hepatitis C Antibody Non-reactive (NonReactive) 12/09/16 13:27 HIV 1&2 Antibody Rapid Non react (Non React) 12/09/16 13:27 HIV P24 Antigen Non react (Non React) 12/09/16 13:27 Schistocytes Smear None seen 12/09/16 11:29 Blood Type O POSITIVE 12/08/16 08:46 Antibody Screen TNR 12/08/16 08:46 ISAIAH Antibody Screen Negative 12/08/16 08:46 Crossmatch See Detail 12/08/16 08:46
[2016-12-11] MEDS: HEPARIN IV PRN (17:19)
[2016-12-11 17:29] LABS: Heparin-Induced Platelet Antib Weak Positive (Negative); Unfractionated Heparin Negative (Negative)
[2016-12-11] MEDS: PEPCID PO SCH (17:50)
[2016-12-11] MEDS: MORPHINE IV PRN (21:49)
[2016-12-12] MEDS: NOVOLOG SUB-Q SCH ×5 (00:54→22:01)
[2016-12-12] MEDS: REGLAN IV SCH ×3 (01:04→16:10)
[2016-12-12] MEDS: FLAGYL 500 MG/100 ML 500 MG/100 ML BAG IV SCH ×3 (06:09→21:55)
[2016-12-12 09:02] LABS: Hematocrit 29.4 % (30.3-42.9); Mean Corpuscular HGB Conc 31 % (30-34); Mean Corpuscular Hemoglobin 29 pg (28-32); Mean Corpuscular Volume 93 fl (79-97); Red Blood Count 3.16 M/mm3 (3.65-5.03); Red Cell Distribution Width 16.6 % (13.2-15.2)
[2016-12-12 09:05] LABS: Platelet Count 96 K/mm3 (140-440); White Blood Count 24.1 K/mm3 (4.5-11.0)
[2016-12-12] MEDS: PEPCID PO SCH (09:08)
[2016-12-12 09:20] LABS: BUN/Creatinine Ratio 9.11; Calcium 8.4 mg/dL (8.4-10.2); Chloride 101.7 mmol/L (98-107); Phosphorous 2.7 mg/dL (2.5-4.5); Potassium 3.7 mmol/L (3.6-5.0)
[2016-12-12 09:57] LABS: Basophils % (Manual) 0 % (0.0-1.8); Eosinophils % (Manual) 0 % (0.0-4.3)
[2016-12-12 09:58] LABS: Anisocytosis 1+; Hypochromasia Few
[2016-12-12 09:59] LABS: Diff Status Complete; Platelet Estimate Appears Decreased
--- NOTE | 2016-12-12 10:04 | Progress Note ---
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 sr. director insulin use: D Qualified Code(s): E10.10 - Type 1 diabetes mellitus with ketoacidosis without coma Plan to address problem: insulin regimen per primary team (2) Acute hypernatremia Current Visit: No Status: Acute Plan to address problem: encouraged to drink water (3) Acute kidney failure with tubular necrosis Current Visit: No Status: Acute Plan to address problem: secondary to ischemic ATN from shock no signs of recovery, remains oliguric HD again today for clearance and volume removal, no significant change in Cr and BUn after HD yesterday, possible catheter malfunction, will need catheter next week if no improvement in kidney function strict I&O daily weight renal diet (4) Leukocytosis Current Visit: Yes Status: Acute Qualifiers: Leukocytosis type: L Plan to address problem: followed by ID tran cultures are pending, will need to have the catheter remove due to high risk of infection if remains dialysis dependent Subjective Date of service: 12/12/16 Principal diagnosis: Severe Sepsis; DKA, cardiac arrest Interval history: tolerated dialyssi, remains to feel weak but slowly improving Objective - Vital Signs Vital signs: Vital Signs - 12hr 12/11/16 12/11/16 12/11/16 22:32 22:36 22:40 Temperature Pulse Rate [ 104 H 100 H Anterior Bilateral Throughout] Pulse Rate [ From Monitor] Pulse Rate [ Left Dorsalis Pedis] Pulse Rate [ Left Radial] Pulse Rate [ Right Dorsalis Pedis] Pulse Rate [ Right Radial] Respiratory Rate Respiratory 15 12 Rate [Anterior Bilateral Throughout] Blood Pressure [Left Arm] O2 Sat by Pulse 95 Oximetry 12/12/16 12/12/16 00:35 05:29 Temperature 98.2 F 98.2 F Pulse Rate [ Anterior Bilateral Throughout] Pulse Rate [ 118 H 119 H From Monitor] Pulse Rate [ 118 H 119 H Left Dorsalis Pedis] Pulse Rate [ 118 H 119 H Left Radial] Pulse Rate [ 118 H 119 H Right Dorsalis Pedis] Pulse Rate [ 118 H 119 H Right Radial] Respiratory 18 20 Rate Respiratory Rate [Anterior Bilateral Throughout] Blood Pressure 103/56 112/58 [Left Arm] O2 Sat by Pulse 92 98 Oximetry - General Appearance General appearance: well-developed, well-nourished EENT: ATNC, PERRL, mucous membranes dry Neck: no JVD, no carotid bruit Respiratory: Present: Clear to Ascultation Cardiology: regular, S1S2 Gastrointestinal: normoactive bowel sounds Integumentary: no rash, warm and dry Neurologic: no focal deficit, no asterixis, alert and oriented x3 Musculoskeletal: other (no edema in BLE) Psychiatric: mood/affect appropriate, cooperative - Lab 12/12/16 08:18 12/12/16 08:18 Most recent lab results Calcium 8.4 mg/dL (8.4-10.2) 12/12/16 08:18 Phosphorus 2.70 mg/dL (2.5-4.5) 12/12/16 08:18 Magnesium 1.90 mg/dL (1.7-2.3) 12/11/16 04:30 Urine Creatinine 29.5 mg/dL (0.1-20.0) H 12/04/16 11:25 Urine Sodium 26 mEq/L 12/04/16 11:25 Urine Total Protein 33 mg/dL (5-11.8) H 12/04/16 11:25
--- NOTE | 2016-12-12 11:30 | Progress Note ---
Assessment and Plan Patient is more alert today extubated. During better denies cardiac symptoms. Rhythm is now noted to be sinus with periods of sinus tachycardia. Continue current management. Cardiac arrest PEA arrest-->V. fib/?torsades-->shocked twice, received amiodarone 300 mg--> likely due to hyperkalemia (9.6 on presentation) Echo 11/2016: EF 40-45%, repeat echo EF 40-45% Abnormal EKG/ST elevation Given pt.'s condition, resolution of ST elevation and recent subarachnoid bleed pt. not a candidate for cardiac cath Hypotension resolved Nstemi type 2 Cardiomyopathy EF 40-45% consider beta zoila if BP can tolerate no ACEI/ARB due to CKD DKA Hyperkalemia Acute on chronic renal failure Anemia Recent subarachnoid hemorrhage Altered mental status Subjective Date of service: 12/12/16 Principal diagnosis: Severe Sepsis; DKA, cardiac arrest Interval history: Patient is extubated. Somewhat sleepy but able to communicate. Denies chest pain difficulty breathing or palpitations. Objective Vital Signs Temp Pulse Pulse Pulse Pulse Pulse Pulse 12/12/16 10:00 112 H 12/12/16 07:14 97.9 F 107 H 107 H 107 H 107 H 12/12/16 05:29 98.2 F 119 H 119 H 119 H 119 H 12/12/16 00:35 98.2 F 118 H 118 H 118 H 118 H 12/11/16 22:40 100 H 12/11/16 22:36 12/11/16 22:32 104 H 12/11/16 21:49 97.6 F 123 H 123 H 123 H 123 H 12/11/16 17:15 98.4 F 109 H 12/11/16 17:00 114 H 12/11/16 16:59 117 H 12/11/16 16:44 118 H 12/11/16 16:30 122 H 12/11/16 16:15 121 H 12/11/16 16:03 117 H 12/11/16 16:00 98.4 F 122 H 12/11/16 15:45 119 H 12/11/16 15:30 115 H 12/11/16 15:15 117 H 12/11/16 15:00 114 H 12/11/16 14:52 114 H 12/11/16 14:32 112 H 12/11/16 14:30 127 H 12/11/16 14:15 114 H 12/11/16 14:00 109 H 12/11/16 13:50 98.1 F 110 H 12/11/16 13:35 115 H 12/11/16 12:00 98.1 F Pulse Resp Resp BP BP Pulse Ox Pulse Ox 12/12/16 10:00 12/12/16 07:14 107 H 18 128/75 96 12/12/16 05:29 119 H 20 112/58 98 12/12/16 00:35 118 H 18 103/56 92 12/11/16 22:40 12 12/11/16 22:36 95 12/11/16 22:32 15 12/11/16 21:49 123 H 20 126/77 100 12/11/16 17:15 14 126/65 100 12/11/16 17:00 19 126/65 12/11/16 16:59 122/62 12/11/16 16:44 102/59 12/11/16 16:30 21 102/59 100 12/11/16 16:15 118/66 12/11/16 16:03 115/75 12/11/16 16:00 22 118/66 100 12/11/16 15:45 118/72 12/11/16 15:30 19 130/76 100 12/11/16 15:15 128/70 12/11/16 15:00 27 H 137/77 100 12/11/16 14:52 128/74 12/11/16 14:32 132/79 12/11/16 14:30 13 128/74 99 12/11/16 14:15 141/82 12/11/16 14:00 24 142/76 100 12/11/16 13:50 26 H 131/72 100 12/11/16 13:35 17 12/11/16 12:00 - Physical Examination General: No Apparent Distress HEENT: Positive: Normocephaly Neck: Positive: neck supple, trachea midline Cardiac: Positive: Reg Rate and Rhythm Lungs: Positive: clear to auscultation Neuro: Positive: Grossly Intact Abdomen: Positive: Soft Skin: Negative: Rash Extremities: Present: normal. Absent: edema - Labs and Meds CBC 12/12/16 Range/Units 08:18 WBC 24.1 H (4.5-11.0) K/mm3 RBC 3.16 L (3.65-5.03) M/mm3 Hgb 9.0 L (10.1-14.3) gm/dl Hct 29.4 L (30.3-42.9) % Plt Count 96 L (140-440) K/mm3 Comprehensive Metabolic Panel 12/12/16 Range/Units 08:18 Sodium 141 (137-145) mmol/L Potassium 3.7 (3.6-5.0) mmol/L Chloride 101.7 (98-107) mmol/L Carbon Dioxide 12 L D (22-30) mmol/L BUN 41 H (7-17) mg/dL Creatinine 4.5 H (0.7-1.2) mg/dL Glucose 369 H (65-100) mg/dL Calcium 8.4 (8.4-10.2) mg/dL - Imaging and Cardiology Echo: report reviewed (11/2016: EF 40-45% repeat echo EF 40-45%)
--- NOTE | 2016-12-12 12:02 | Progress Note ---
Assessment and Plan Assessment and plan: Patient is a 46-year-old woman with history of insulin-dependent diabetes mellitus, hypertension, recent SAH and dyslipidemia who presented with DKA, AMS and STEMI with V. fib arrest requiring IV amiodarone suppression. She intubated and she was on IV insulin drip for documented DKA, Levophed, IV vancomycin and propofol drip. She has a right groin triple-lumen catheter, Short and NG tube. ET tube removed. Extubated 12/09/16 doing well. Off pressors, diprivan. -Cardiac arrest with V. fib: Cardiology is following -ARF, ATN, poa: renal is following, status post hemodialysis -Acute hypoxic respiratory failure, extubated: Rug Dyer Helper is following -Cardiac arrest was STEMI: Cardiology is following -Suspected DKA: Status post insulin drip -Metabolic Acidosis, treat the DKA -Acute metabolic encephalopathy, poa, resolved -Leukocytosis +GNR in trach aspirate, pseudomonas aeruginosa: ID is following on IV Merrem -DVT prophylaxis: SCDs only due to recent SAH -Thrombocytopenia due to sepsis, improved status post platelet transfusion -Acute on chronic anemia of chronic disease s/p 2 unit of prbc, monitoring closely 12/11/2016: poor guarded, doing better today. d/w Dr. Lisa lugo to transfer out the ICU 12/12/2016: NG tube removed yesterday she is on mechanical soft ground meats and nectar thickened liquids, D/C the Short. She still has left arm PICC line. She doesn't much better. Main issue today is hypoglycemia, will increase insulin and start Levemir History Interval history: Patient seen and examined. Follow up on cardiac arrest, Imaging, old records, testing, labs, nursing notes reviewed. Patient states she feels better. She denies any shortness of breath, chest pain. She did have low back pain yesterday but hasn't reoccurred. Hospitalist Physical - Physical exam Narrative exam: GEN: NAD, AWAKE, ALERT, ORIENTATED x 3 CVS: Regular tachycardic, NORMAL S1S2 LUNGS/CHEST: NORMAL CHEST EXPANSION B, improved ENTRY B ABD: SOFT, NTND, GBS, NO REBOUND OR GUARDING MSK: FROM X 4 EXTREMITIES NEURO: CN 2-12 GROSSLY INTACT, NO new FOCAL DEFICITS PSY: CALM - Constitutional Vitals: Temp Pulse Resp BP Pulse Ox 97.9 F 112 H 18 128/75 96 12/12/16 07:14 12/12/16 10:00 12/12/16 07:14 12/12/16 07:14 12/12/16 07:14 General appearance: Present: no acute distress Results - Labs CBC & Chem 7: 12/12/16 08:18 12/12/16 08:18 Labs: Laboratory Last Values WBC 24.1 K/mm3 (4.5-11.0) H 12/12/16 08:18 RBC 3.16 M/mm3 (3.65-5.03) L 12/12/16 08:18 Hgb 9.0 gm/dl (10.1-14.3) L 12/12/16 08:18 Hct 29.4 % (30.3-42.9) L 12/12/16 08:18 MCV 93 fl (79-97) D 12/12/16 08:18 MCH 29 pg (28-32) 12/12/16 08:18 MCHC 31 % (30-34) 12/12/16 08:18 RDW 16.6 % (13.2-15.2) H 12/12/16 08:18 Plt Count 96 K/mm3 (140-440) L 12/12/16 08:18 Add Manual Diff Complete 12/12/16 08:18 Total Counted 100 12/12/16 08:18 Seg Neuts % (Manual) 75.0 % (40.0-70.0) H 12/12/16 08:18 Band Neutrophils % 0 % 12/12/16 08:18 Lymphocytes % (Manual) 17.0 % (13.4-35.0) 12/12/16 08:18 Reactive Lymphs % (Man) 0 % 12/12/16 08:18 Monocytes % (Manual) 6.0 % (0.0-7.3) 12/12/16 08:18 Eosinophils % (Manual) 0 % (0.0-4.3) 12/12/16 08:18 Basophils % (Manual) 0 % (0.0-1.8) 12/12/16 08:18 Metamyelocytes % 0 % 12/12/16 08:18 Myelocytes % 0 % 12/12/16 08:18 Promyelocytes % 1.0 % 12/12/16 08:18 Blast Cells % 1.0 % 12/12/16 08:18 Nucleated RBC % Not Reportable 12/12/16 08:18 Seg Neutrophils # Man 18.1 K/mm3 (1.8-7.7) H 12/12/16 08:18 Band Neutrophils # 0.0 K/mm3 12/12/16 08:18 Lymphocytes # (Manual) 4.1 K/mm3 (1.2-5.4) 12/12/16 08:18 Abs React Lymphs (Man) 0.0 K/mm3 12/12/16 08:18 Monocytes # (Manual) 1.4 K/mm3 (0.0-0.8) H 12/12/16 08:18 Eosinophils # (Manual) 0.0 K/mm3 (0.0-0.4) 12/12/16 08:18 Basophils # (Manual) 0.0 K/mm3 (0.0-0.1) 12/12/16 08:18 Metamyelocytes # 0.0 K/mm3 12/12/16 08:18 Myelocytes # 0.0 K/mm3 12/12/16 08:18 Promyelocytes # 0.2 K/mm3 12/12/16 08:18 Blast Cells # 0.1 K/mm3 12/12/16 08:18 WBC Morphology Not Reportable 12/12/16 08:18 Hypersegmented Neuts Not Reportable 12/12/16 08:18 Hyposegmented Neuts Not Reportable 12/12/16 08:18 Hypogranular Neuts Not Reportable 12/12/16 08:18 Smudge Cells Not Reportable 12/12/16 08:18 Toxic Granulation Not Reportable 12/12/16 08:18 Toxic Vacuolation Not Reportable 12/12/16 08:18 Dohle Bodies Not Reportable 12/12/16 08:18 Pelger-Huet Anomaly Not Reportable 12/12/16 08:18 Mary Rods Not Reportable 12/12/16 08:18 Platelet Estimate Appears decreased 12/12/16 08:18 Clumped Platelets Not Reportable 12/12/16 08:18 Plt Clumps, EDTA Not Reportable 12/12/16 08:18 Large Platelets Not Reportable 12/12/16 08:18 Giant Platelets Not Reportable 12/12/16 08:18 Platelet Satelliting Not Reportable 12/12/16 08:18 Plt Morphology Comment Not Reportable 12/12/16 08:18 RBC Morphology Not Reportable 12/12/16 08:18 Dimorphic RBCs Not Reportable 12/12/16 08:18 Polychromasia Not Reportable 12/12/16 08:18 Hypochromasia Few 12/12/16 08:18 Poikilocytosis Not Reportable 12/12/16 08:18 Anisocytosis 1+ 12/12/16 08:18 Microcytosis Not Reportable 12/12/16 08:18 Macrocytosis Not Reportable 12/12/16 08:18 Spherocytes Not Reportable 12/12/16 08:18 Pappenheimer Bodies Not Reportable 12/12/16 08:18 Sickle Cells Not Reportable 12/12/16 08:18 Target Cells Not Reportable 12/12/16 08:18 Tear Drop Cells Not Reportable 12/12/16 08:18 Ovalocytes Not Reportable 12/12/16 08:18 Helmet Cells Not Reportable 12/12/16 08:18 [place] Bodies Not Reportable 12/12/16 08:18 Odell Rings Not Reportable 12/12/16 08:18 [place] Cells Not Reportable 12/12/16 08:18 Bite Cells Not Reportable 12/12/16 08:18 Crenated Cell Not Reportable 12/12/16 08:18 Elliptocytes Not Reportable 12/12/16 08:18 Acanthocytes (Spur) Not Reportable 12/12/16 08:18 Rouleaux Not Reportable 12/12/16 08:18 Hemoglobin C Crystals Not Reportable 12/12/16 08:18 Schistocytes Not Reportable 12/12/16 08:18 Malaria parasites Not Reportable 12/12/16 08:18 Percent Retic 0.23 % (0.78-2.58) L 12/09/16 11:29 Michael Bodies Not Reportable 12/12/16 08:18 Haptoglobin 271 mg/dL (43-212) H 12/08/16 21:30 Hem Pathologist Commnt No 12/12/16 08:18 PT 15.3 Sec. (12.2-14.9) H 12/08/16 19:00 INR 1.22 (0.87-1.13) H 12/08/16 19:00 APTT 36.2 Sec. (24.2-36.6) 12/08/16 19:00 Fibrinogen 563 mg/dl (211-480) H 12/08/16 19:00 D-Dimer 5507.36 ng/mlDDU (0-234) H 12/08/16 19:00 Heparin Anti-Xa, Unfract Negative (Negative) 12/09/16 13:27 POC ABG pH 7.326 (7.35-7.45) L 12/09/16 12:02 POC ABG pCO2 37.7 (35-45) 12/09/16 12:02 POC ABG pO2 115 (80-105) H 12/09/16 12:02 POC ABG HCO3 19.7 12/09/16 12:02 POC ABG Total CO2 21 12/09/16 12:02 POC ABG O2 Sat 98 12/09/16 12:02 POC ABG Base Excess -6 12/09/16 12:02 FiO2 30 % 12/09/16 12:02 Sodium 141 mmol/L (137-145) 12/12/16 08:18 Potassium 3.7 mmol/L (3.6-5.0) 12/12/16 08:18 Chloride 101.7 mmol/L (98-107) 12/12/16 08:18 Carbon Dioxide 12 mmol/L (22-30) L D 12/12/16 08:18 Anion Gap 31 mmol/L 12/12/16 08:18 BUN 41 mg/dL (7-17) H 12/12/16 08:18 Creatinine 4.5 mg/dL (0.7-1.2) H 12/12/16 08:18 Estimated GFR 13 ml/min 12/12/16 08:18 BUN/Creatinine Ratio 9.11 % 12/12/16 08:18 Glucose 369 mg/dL (65-100) H 12/12/16 08:18 POC Glucose 418 (70-105) H 12/12/16 07:52 Lactic Acid 6.90 mmol/L (0.7-2.0) H* 12/07/16 07:30 Calcium 8.4 mg/dL (8.4-10.2) 12/12/16 08:18 Phosphorus 2.70 mg/dL (2.5-4.5) 12/12/16 08:18 Magnesium 1.90 mg/dL (1.7-2.3) 12/11/16 04:30 Iron 15 ug/dL (37-170) L 12/09/16 13:27 TIBC 134 mcg/dL (250-450) L 12/09/16 13:27 Ferritin 360.1 ng/mL (13.0-400.0) 12/09/16 13:27 Total Bilirubin 1.40 mg/dL (0.1-1.2) H 12/07/16 21:35 Direct Bilirubin 0.9 mg/dL (0-0.2) H 12/07/16 21:35 Indirect Bilirubin 0.5 mg/dL 12/07/16 21:35 AST 94 units/L (5-40) H 12/07/16 21:35 ALT 142 units/L (7-56) H 12/07/16 21:35 Alkaline Phosphatase 249 units/L (35-129) H 12/07/16 21:35 Lactate Dehydrogenase 382 units/L (91-180) H 12/08/16 19:00 Total Creatine Kinase 123 units/L (30-135) 12/04/16 09:55 CK-MB (CK-2) 4.6 ng/mL (0.0-4.0) H 12/04/16 09:55 CK-MB (CK-2) Rel Index 3.7 (0-4) 12/04/16 09:55 Troponin T 0.140 ng/mL (0.00-0.029) H* D 12/04/16 09:55 C-Reactive Protein 39.40 mg/dL (0.00-1.30) H 12/07/16 06:00 Total Protein 4.6 g/dL (6.3-8.2) L D 12/07/16 21:35 Albumin 2.1 g/dL (3.9-5) L 12/07/16 21:35 Albumin/Globulin Ratio 0.8 % 12/07/16 21:35 Triglycerides 570 mg/dL (2-149) H 12/04/16 07:55 Cholesterol 221 mg/dL (50-199) H 12/04/16 07:55 LDL Cholesterol Direct TNR 12/04/16 07:55 HDL Cholesterol 37 mg/dL (40-59) L 12/04/16 07:55 Cholesterol/HDL Ratio 5.97 % 12/04/16 07:55 Vitamin B12 > 2000 pg/mL (211-911) H 12/09/16 13:27 Folate 8.10 ng/mL (7.3-26.0) 12/09/16 13:27 TSH 1.600 mlU/mL (0.270-4.200) 12/03/16 23:20 Urine Color Yellow (Yellow) 12/04/16 11:25 Urine Turbidity Slightly-cloudy (Clear) 12/04/16 11:25 Urine pH 5.0 (5.0-7.0) 12/04/16 11:25 Ur Specific [place] 1.018 (1.003-1.030) 12/04/16 11:25 Urine Protein 30 mg/dl mg/dL (Negative) 12/04/16 11:25 Urine Glucose (UA) >=500 mg/dL (Negative) 12/04/16 11:25 Urine Ketones Tr mg/dL (Negative) 12/04/16 11:25 Urine Blood Sm (Negative) 12/04/16 11:25 Urine Nitrite Neg (Negative) 12/04/16 11:25 Urine Bilirubin Neg (Negative) 12/04/16 11:25 Urine Urobilinogen < 2.0 mg/dL (<2.0) 12/04/16 11:25 Ur Leukocyte Esterase Neg (Negative) 12/04/16 11:25 Urine WBC (Auto) 4.0 /HPF (0.0-6.0) 12/04/16 11:25 Urine RBC (Auto) 2.0 /HPF (0.0-6.0) 12/04/16 11:25 U Epithel Cells (Auto) < 1.0 /HPF (0-13.0) 12/04/16 11:25 Urine Mucus Few /HPF 12/04/16 11:25 Urine Osmolality 419 Mosm/kg 12/04/16 11:25 Urine Creatinine 29.5 mg/dL (0.1-20.0) H 12/04/16 11:25 Protein/Creatinin Ratio 1.12 12/04/16 11:25 Urine Sodium 26 mEq/L 12/04/16 11:25 Urine Total Protein 33 mg/dL (5-11.8) H 12/04/16 11:25 Urine Opiates Screen Presumptive negative 12/04/16 11:25 Urine Methadone Screen Presumptive negative 12/04/16 11:25 Ur Barbiturates Screen Presumptive negative 12/04/16 11:25 Ur Phencyclidine Scrn Presumptive negative 12/04/16 11:25 Ur Amphetamines Screen Presumptive negative 12/04/16 11:25 U Benzodiazepines Scrn Presumptive negative 12/04/16 11:25 Urine Cocaine Screen Presumptive negative 12/04/16 11:25 U Marijuana (THC) Screen Presumptive positive 12/04/16 11:25 Drugs of Abuse Note Disclamer 12/04/16 11:25 Heparin-induced Plt Ab Weak positive (Negative) H 12/09/16 13:27 UF Heparin High Dose 0 % Release 12/09/16 13:27 ADRIENNE UFH Low Dose 0.1 0 % Release 12/09/16 13:27 ADRIENNE UFH Low Dose 0.5 0 % Release 12/09/16 13:27 Hep Bs Antigen Non-reactive (Negative) 12/09/16 13:27 Hep Bs Antibody, Quant <5 mIU/mL (>=10) L 12/09/16 13:27 Hep B Core Total Ab Nonreactive (Nonreactive) 12/09/16 13:27 Hepatitis C Antibody Non-reactive (NonReactive) 12/09/16 13:27 HIV 1&2 Antibody Rapid Non react (Non React) 12/09/16 13:27 HIV P24 Antigen Non react (Non React) 12/09/16 13:27 Schistocytes Smear None seen 12/09/16 11:29 Blood Type O POSITIVE 12/08/16 08:46 Antibody Screen TNR 12/08/16 08:46 ISAIAH Antibody Screen Negative 12/08/16 08:46 Crossmatch See Detail 12/08/16 08:46
[2016-12-12] MEDS: TOBRAMYCIN INHALATION (NICU) (40 MG/ML) IH SCH (13:04)
[2016-12-12] MEDS ORDERED: NACL 0.9 (PRIMING MACHINE ONLY DIALYSIS) MC ONE (13:22)
[2016-12-12] MEDS: HEPARIN IV PRN (17:02)
--- NOTE | 2016-12-12 17:32 | Progress Note ---
Assessment and Plan Patient alert, awake.. No acute respiratory distress.No complaint of chest pain or shortness of breath..Patient is on 3 litres O2 and O2 saturation 100%. 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 Patient alert, awake. Clinicall appears improving. Management as per primary care. (2) Metabolic encephalopathy Current Visit: Yes Status: Acute Plan to address problem: Patient alert, awake, following commands. Appears encephalopathy improving. Management as per primary care. (3) Pulmonary infiltrate in right lung on chest x-ray Current Visit: Yes Status: Acute Plan to address problem: Patient is on I/V flagyl. Patient afebrile. Still has leukocytosis. Repeating chest xray. Subjective Date of service: 12/12/16 Principal diagnosis: Severe Sepsis; DKA, cardiac arrest Interval history: Patient alert, awake, weak. No acute respiratory distress. No complaint of chest pain or shortness of breath. Slight cough and hoarseness of voice.O2 saturation 95% on room air. Objective Vital Signs - 12hr 12/12/16 12/12/16 12/12/16 05:29 07:14 10:00 Temperature 98.2 F 97.9 F Pulse Rate 112 H Pulse Rate [ 119 H 107 H From Monitor] Pulse Rate [ 119 H 107 H Left Dorsalis Pedis] Pulse Rate [ 119 H 107 H Left Radial] Pulse Rate [ 119 H 107 H Right Dorsalis Pedis] Pulse Rate [ 119 H 107 H Right Radial] Respiratory 20 18 Rate Blood Pressure Blood Pressure 112/58 128/75 [Left Arm] O2 Sat by Pulse 98 96 Oximetry 12/12/16 12/12/16 12/12/16 12:00 12:15 12:30 Temperature 98.0 F Pulse Rate 112 H 116 H 114 H Pulse Rate [ From Monitor] Pulse Rate [ Left Dorsalis Pedis] Pulse Rate [ Left Radial] Pulse Rate [ Right Dorsalis Pedis] Pulse Rate [ Right Radial] Respiratory 20 Rate Blood Pressure 131/77 135/78 125/75 Blood Pressure [Left Arm] O2 Sat by Pulse Oximetry 12/12/16 12/12/16 12/12/16 12:45 13:00 13:15 Temperature Pulse Rate 112 H 109 H 121 H Pulse Rate [ From Monitor] Pulse Rate [ Left Dorsalis Pedis] Pulse Rate [ Left Radial] Pulse Rate [ Right Dorsalis Pedis] Pulse Rate [ Right Radial] Respiratory Rate Blood Pressure 128/78 127/75 122/82 Blood Pressure [Left Arm] O2 Sat by Pulse Oximetry 12/12/16 12/12/16 12/12/16 13:30 13:45 14:00 Temperature Pulse Rate 112 H 109 H 111 H Pulse Rate [ From Monitor] Pulse Rate [ Left Dorsalis Pedis] Pulse Rate [ Left Radial] Pulse Rate [ Right Dorsalis Pedis] Pulse Rate [ Right Radial] Respiratory Rate Blood Pressure 128/77 128/75 129/72 Blood Pressure [Left Arm] O2 Sat by Pulse Oximetry 12/12/16 12/12/16 12/12/16 14:14 14:15 14:30 Temperature 98.7 F Pulse Rate 111 H 112 H Pulse Rate [ 109 H From Monitor] Pulse Rate [ 109 H Left Dorsalis Pedis] Pulse Rate [ 109 H Left Radial] Pulse Rate [ 109 H Right Dorsalis Pedis] Pulse Rate [ 109 H Right Radial] Respiratory 18 Rate Blood Pressure 125/70 134/71 Blood Pressure 123/72 [Left Arm] O2 Sat by Pulse 95 Oximetry 12/12/16 12/12/16 12/12/16 14:45 15:00 15:15 Temperature 98.2 F Pulse Rate 112 H 125 H 62 Pulse Rate [ From Monitor] Pulse Rate [ Left Dorsalis Pedis] Pulse Rate [ Left Radial] Pulse Rate [ Right Dorsalis Pedis] Pulse Rate [ Right Radial] Respiratory 20 Rate Blood Pressure 117/69 108/70 113/62 Blood Pressure [Left Arm] O2 Sat by Pulse Oximetry Constitutional: no acute distress, alert Eyes: non-icteric ENT: oropharynx moist Neck: supple, no lymphadenopathy Effort: mildly labored Ascultation: Bilateral: diminished breath sounds, rales (R>L lungs), rhonchi ( On right side.) Cardiovascular: regular rate and rhythm, other (SVT) Gastrointestinal: normoactive bowel sounds, soft, non-tender, non-distended Integumentary: normal Extremities: no cyanosis, no edema, pulses normal, no ischemia or petechiae Neurologic: normal mental status, non-focal exam, pupils equal and round, motor strength normal and Psychiatric: mood appropriate, affect normal CBC and BMP: 12/12/16 08:18 12/12/16 08:18 ABG, PT/INR, D-dimer: ABG POC ABG pH 7.326 (7.35-7.45) L 12/09/16 12:02 POC ABG pCO2 37.7 (35-45) 12/09/16 12:02 POC ABG pO2 115 (80-105) H 12/09/16 12:02 POC ABG HCO3 19.7 12/09/16 12:02 POC ABG Total CO2 21 12/09/16 12:02 POC ABG O2 Sat 98 12/09/16 12:02 PT/INR, D-dimer PT 15.3 Sec. (12.2-14.9) H 12/08/16 19:00 INR 1.22 (0.87-1.13) H 12/08/16 19:00 D-Dimer 5507.36 ng/mlDDU (0-234) H 12/08/16 19:00 Abnormal lab findings: Abnormal Labs 12/04/16 12/04/16 12/04/16 01:19 01:36 02:21 WBC RBC Hgb Hct MCV MCHC RDW Plt Count Seg Neuts % (Manual) Lymphocytes % (Manual) Monocytes % (Manual) Nucleated RBC % Seg Neutrophils # Man Lymphocytes # (Manual) Monocytes # (Manual) Percent Retic Haptoglobin PT INR Fibrinogen D-Dimer POC ABG pH 6.759 L POC ABG pCO2 POC ABG pO2 437 H Sodium Potassium Chloride Carbon Dioxide BUN Creatinine Glucose POC Glucose > 500 H Lactic Acid Calcium Phosphorus 15.70 H Magnesium 4.30 H Iron TIBC Total Bilirubin Direct Bilirubin AST ALT Alkaline Phosphatase Lactate Dehydrogenase CK-MB (CK-2) Troponin T C-Reactive Protein Total Protein Albumin Triglycerides Cholesterol HDL Cholesterol Vitamin B12 Urine Creatinine Urine Total Protein Heparin-induced Plt Ab Hep Bs Antibody, Quant Crossmatch 12/04/16 12/04/16 12/04/16 03:55 04:00 05:11 WBC RBC Hgb Hct MCV MCHC RDW Plt Count Seg Neuts % (Manual) Lymphocytes % (Manual) Monocytes % (Manual) Nucleated RBC % Seg Neutrophils # Man Lymphocytes # (Manual) Monocytes # (Manual) Percent Retic Haptoglobin PT INR Fibrinogen D-Dimer POC ABG pH POC ABG pCO2 POC ABG pO2 Sodium Potassium Chloride 91.4 L Carbon Dioxide 8 L* BUN 55 H Creatinine 2.8 H Glucose 1610 H* POC Glucose > 500 H > 500 H Lactic Acid Calcium Phosphorus Magnesium Iron TIBC Total Bilirubin Direct Bilirubin AST ALT Alkaline Phosphatase Lactate Dehydrogenase CK-MB (CK-2) Troponin T C-Reactive Protein Total Protein Albumin Triglycerides Cholesterol HDL Cholesterol Vitamin B12 Urine Creatinine Urine Total Protein Heparin-induced Plt Ab Hep Bs Antibody, Quant Crossmatch 12/04/16 12/04/16 12/04/16 05:40 05:54 06:58 WBC RBC Hgb Hct MCV MCHC RDW Plt Count Seg Neuts % (Manual) Lymphocytes % (Manual) Monocytes % (Manual) Nucleated RBC % Seg Neutrophils # Man Lymphocytes # (Manual) Monocytes # (Manual) Percent Retic Haptoglobin PT INR Fibrinogen D-Dimer POC ABG pH 7.154 L POC ABG pCO2 27.5 L POC ABG pO2 111 H Sodium Potassium Chloride Carbon Dioxide BUN Creatinine Glucose POC Glucose > 500 H > 500 H Lactic Acid Calcium Phosphorus Magnesium Iron TIBC Total Bilirubin Direct Bilirubin AST ALT Alkaline Phosphatase Lactate Dehydrogenase CK-MB (CK-2) Troponin T C-Reactive Protein Total Protein Albumin Triglycerides Cholesterol HDL Cholesterol Vitamin B12 Urine Creatinine Urine Total Protein Heparin-induced Plt Ab Hep Bs Antibody, Quant Crossmatch 12/04/16 12/04/16 12/04/16 07:49 07:55 07:55 WBC RBC Hgb Hct MCV MCHC RDW Plt Count Seg Neuts % (Manual) Lymphocytes % (Manual) Monocytes % (Manual) Nucleated RBC % Seg Neutrophils # Man Lymphocytes # (Manual) Monocytes # (Manual) Percent Retic Haptoglobin PT INR Fibrinogen D-Dimer POC ABG pH POC ABG pCO2 POC ABG pO2 Sodium Potassium 3.3 L Chloride Carbon Dioxide 9 L* BUN 53 H Creatinine 2.9 H Glucose 1229 H* POC Glucose > 500 H Lactic Acid Calcium Phosphorus Magnesium Iron TIBC Total Bilirubin Direct Bilirubin AST ALT Alkaline Phosphatase Lactate Dehydrogenase CK-MB (CK-2) Troponin T 0.111 H* D C-Reactive Protein Total Protein Albumin Triglycerides 570 H Cholesterol 221 H HDL Cholesterol 37 L Vitamin B12 Urine Creatinine Urine Total Protein Heparin-induced Plt Ab Hep Bs Antibody, Quant Crossmatch 12/04/16 12/04/1612/04/17 07:55 09:55 09:55 WBC RBC 2.90 L Hgb 8.5 L Hct 30.2 L D MCV 105 H D MCHC 28 L RDW 19.2 H Plt Count Seg Neuts % (Manual) Lymphocytes % (Manual) 11.0 L Monocytes % (Manual) Nucleated RBC % Seg Neutrophils # Man Lymphocytes # (Manual) 0.6 L Monocytes # (Manual) Percent Retic Haptoglobin PT INR Fibrinogen D-Dimer POC ABG pH POC ABG pCO2 POC ABG pO2 Sodium Potassium 3.1 L Chloride Carbon Dioxide 7 L* BUN 51 H Creatinine 3.2 H Glucose 969 H* POC Glucose Lactic Acid Calcium 10.4 H D Phosphorus Magnesium Iron TIBC Total Bilirubin Direct Bilirubin AST ALT Alkaline Phosphatase Lactate Dehydrogenase CK-MB (CK-2) 4.6 H Troponin T 0.140 H* D C-Reactive Protein Total Protein Albumin Triglycerides Cholesterol HDL Cholesterol Vitamin B12 Urine Creatinine Urine Total Protein Heparin-induced Plt Ab Hep Bs Antibody, Quant Crossmatch 12/04/16 12/04/16 12/04/16 09:55 10:37 11:25 WBC RBC Hgb Hct MCV MCHC RDW Plt Count Seg Neuts % (Manual) Lymphocytes % (Manual) Monocytes % (Manual) Nucleated RBC % Seg Neutrophils # Man Lymphocytes # (Manual) Monocytes # (Manual) Percent Retic Haptoglobin PT INR Fibrinogen D-Dimer POC ABG pH 7.215 L POC ABG pCO2 18.8 L POC ABG pO2 193 H Sodium Potassium Chloride Carbon Dioxide BUN Creatinine Glucose POC Glucose Lactic Acid Calcium Phosphorus Magnesium 3.70 H Iron TIBC Total Bilirubin Direct Bilirubin AST ALT Alkaline Phosphatase Lactate Dehydrogenase CK-MB (CK-2) Troponin T C-Reactive Protein Total Protein Albumin Triglycerides Cholesterol HDL Cholesterol Vitamin B12 Urine Creatinine 29.5 H Urine Total Protein 33 H Heparin-induced Plt Ab Hep Bs Antibody, Quant Crossmatch 12/04/16 12/04/16 12/04/16 12:00 12:48 13:00 WBC RBC Hgb Hct MCV MCHC RDW Plt Count Seg Neuts % (Manual) Lymphocytes % (Manual) Monocytes % (Manual) Nucleated RBC % Seg Neutrophils # Man Lymphocytes # (Manual) Monocytes # (Manual) Percent Retic Haptoglobin PT INR Fibrinogen D-Dimer POC ABG pH POC ABG pCO2 POC ABG pO2 Sodium 149 H 150 H Potassium 3.2 L 3.2 L Chloride 109.1 H Carbon Dioxide 8 L* 8 L* BUN 52 H 49 H Creatinine 3.4 H 3.1 H Glucose 723 H* 574 H* POC Glucose Lactic Acid 18.80 H* Calcium Phosphorus Magnesium Iron TIBC Total Bilirubin Direct Bilirubin AST ALT Alkaline Phosphatase Lactate Dehydrogenase CK-MB (CK-2) Troponin T C-Reactive Protein Total Protein Albumin Triglycerides Cholesterol HDL Cholesterol Vitamin B12 Urine Creatinine Urine Total Protein Heparin-induced Plt Ab Hep Bs Antibody, Quant Crossmatch 12/04/16 12/04/16 12/04/16 13:01 14:41 16:06 WBC RBC Hgb Hct MCV MCHC RDW Plt Count Seg Neuts % (Manual) Lymphocytes % (Manual) Monocytes % (Manual) Nucleated RBC % Seg Neutrophils # Man Lymphocytes # (Manual) Monocytes # (Manual) Percent Retic Haptoglobin PT INR Fibrinogen D-Dimer POC ABG pH POC ABG pCO2 POC ABG pO2 Sodium 151 H Potassium 3.2 L Chloride 108.1 H Carbon Dioxide 10 L BUN 49 H Creatinine 3.0 H Glucose 383 H POC Glucose 292 H Lactic Acid Calcium Phosphorus Magnesium Iron TIBC Total Bilirubin Direct Bilirubin AST ALT Alkaline Phosphatase Lactate Dehydrogenase CK-MB (CK-2) Troponin T C-Reactive Protein 3.50 H Total Protein Albumin Triglycerides Cholesterol HDL Cholesterol Vitamin B12 Urine Creatinine Urine Total Protein Heparin-induced Plt Ab Hep Bs Antibody, Quant Crossmatch 12/04/16 12/04/16 12/04/16 17:15 17:25 18:07 WBC RBC Hgb Hct MCV MCHC RDW Plt Count Seg Neuts % (Manual) Lymphocytes % (Manual) Monocytes % (Manual) Nucleated RBC % Seg Neutrophils # Man Lymphocytes # (Manual) Monocytes # (Manual) Percent Retic Haptoglobin PT INR Fibrinogen D-Dimer POC ABG pH 7.255 L POC ABG pCO2 16.9 L POC ABG pO2 169 H Sodium Potassium Chloride Carbon Dioxide BUN Creatinine Glucose POC Glucose 246 H Lactic Acid 18.50 H* Calcium Phosphorus Magnesium Iron TIBC Total Bilirubin Direct Bilirubin AST ALT Alkaline Phosphatase Lactate Dehydrogenase CK-MB (CK-2) Troponin T C-Reactive Protein Total Protein Albumin Triglycerides Cholesterol HDL Cholesterol Vitamin B12 Urine Creatinine Urine Total Protein Heparin-induced Plt Ab Hep Bs Antibody, Quant Crossmatch 12/04/16 12/04/16 12/04/16 19:34 20:31 21:15 WBC RBC Hgb Hct MCV MCHC RDW Plt Count Seg Neuts % (Manual) Lymphocytes % (Manual) Monocytes % (Manual) Nucleated RBC % Seg Neutrophils # Man Lymphocytes # (Manual) Monocytes # (Manual) Percent Retic Haptoglobin PT INR Fibrinogen D-Dimer POC ABG pH POC ABG pCO2 POC ABG pO2 Sodium Potassium Chloride Carbon Dioxide BUN Creatinine Glucose POC Glucose 189 H 126 H 139 H Lactic Acid Calcium Phosphorus Magnesium Iron TIBC Total Bilirubin Direct Bilirubin AST ALT Alkaline Phosphatase Lactate Dehydrogenase CK-MB (CK-2) Troponin T C-Reactive Protein Total Protein Albumin Triglycerides Cholesterol HDL Cholesterol Vitamin B12 Urine Creatinine Urine Total Protein Heparin-induced Plt Ab Hep Bs Antibody, Quant Crossmatch 12/04/16 12/04/16 12/04/16 21:25 22:37 23:35 WBC RBC Hgb Hct MCV MCHC RDW Plt Count Seg Neuts % (Manual) Lymphocytes % (Manual) Monocytes % (Manual) Nucleated RBC % Seg Neutrophils # Man Lymphocytes # (Manual) Monocytes # (Manual) Percent Retic Haptoglobin PT INR Fibrinogen D-Dimer POC ABG pH 7.294 L POC ABG pCO2 16.7 L POC ABG pO2 169 H Sodium Potassium Chloride Carbon Dioxide BUN Creatinine Glucose POC Glucose 131 H 106 H Lactic Acid Calcium Phosphorus Magnesium Iron TIBC Total Bilirubin Direct Bilirubin AST ALT Alkaline Phosphatase Lactate Dehydrogenase CK-MB (CK-2) Troponin T C-Reactive Protein Total Protein Albumin Triglycerides Cholesterol HDL Cholesterol Vitamin B12 Urine Creatinine Urine Total Protein Heparin-induced Plt Ab Hep Bs Antibody, Quant Crossmatch 12/05/16 12/05/16 12/05/16 02:40 02:50 02:50 WBC RBC Hgb Hct MCV MCHC RDW Plt Count Seg Neuts % (Manual) Lymphocytes % (Manual) Monocytes % (Manual) Nucleated RBC % Seg Neutrophils # Man Lymphocytes # (Manual) Monocytes # (Manual) Percent Retic Haptoglobin PT INR Fibrinogen D-Dimer POC ABG pH POC ABG pCO2 POC ABG pO2 Sodium 151 H Potassium Chloride 113.8 H Carbon Dioxide 12 L BUN 46 H Creatinine 3.2 H Glucose 165 H POC Glucose 109 H Lactic Acid 9.80 H* Calcium 8.3 L Phosphorus Magnesium Iron TIBC Total Bilirubin Direct Bilirubin AST ALT Alkaline Phosphatase Lactate Dehydrogenase CK-MB (CK-2) Troponin T C-Reactive Protein Total Protein Albumin Triglycerides Cholesterol HDL Cholesterol Vitamin B12 Urine Creatinine Urine Total Protein Heparin-induced Plt Ab Hep Bs Antibody, Quant Crossmatch 12/05/16 12/05/16 12/05/16 04:01 04:30 04:30 WBC 19.1 H RBC 2.91 L Hgb 8.0 L Hct 25.4 L MCV MCHC RDW 17.8 H Plt Count Seg Neuts % (Manual) 17.0 L Lymphocytes % (Manual) 7.0 L Monocytes % (Manual) Nucleated RBC % 3.0 H Seg Neutrophils # Man Lymphocytes # (Manual) Monocytes # (Manual) Percent Retic Haptoglobin PT INR Fibrinogen D-Dimer POC ABG pH POC ABG pCO2 POC ABG pO2 Sodium 152 H Potassium Chloride 113.5 H Carbon Dioxide 12 L BUN 47 H Creatinine 3.2 H Glucose 133 H POC Glucose 179 H Lactic Acid Calcium 8.3 L Phosphorus 1.00 L D Magnesium Iron TIBC Total Bilirubin Direct Bilirubin AST ALT Alkaline Phosphatase Lactate Dehydrogenase CK-MB (CK-2) Troponin T C-Reactive Protein Total Protein Albumin Triglycerides Cholesterol HDL Cholesterol Vitamin B12 Urine Creatinine Urine Total Protein Heparin-induced Plt Ab Hep Bs Antibody, Quant Crossmatch 12/05/16 12/05/16 12/05/16 05:32 08:01 08:48 WBC RBC Hgb Hct MCV MCHC RDW Plt Count Seg Neuts % (Manual) Lymphocytes % (Manual) Monocytes % (Manual) Nucleated RBC % Seg Neutrophils # Man Lymphocytes # (Manual) Monocytes # (Manual) Percent Retic Haptoglobin PT INR Fibrinogen D-Dimer POC ABG pH POC ABG pCO2 17.6 L POC ABG pO2 62 L Sodium Potassium Chloride Carbon Dioxide BUN Creatinine Glucose POC Glucose 126 H 130 H Lactic Acid Calcium Phosphorus Magnesium Iron TIBC Total Bilirubin Direct Bilirubin AST ALT Alkaline Phosphatase Lactate Dehydrogenase CK-MB (CK-2) Troponin T C-Reactive Protein Total Protein Albumin Triglycerides Cholesterol HDL Cholesterol Vitamin B12 Urine Creatinine Urine Total Protein Heparin-induced Plt Ab Hep Bs Antibody, Quant Crossmatch 12/05/16 12/05/16 12/05/16 08:54 12:01 15:15 WBC RBC Hgb Hct MCV MCHC RDW Plt Count Seg Neuts % (Manual) Lymphocytes % (Manual) Monocytes % (Manual) Nucleated RBC % Seg Neutrophils # Man Lymphocytes # (Manual) Monocytes # (Manual) Percent Retic Haptoglobin PT INR Fibrinogen D-Dimer POC ABG pH POC ABG pCO2 POC ABG pO2 Sodium Potassium Chloride Carbon Dioxide BUN Creatinine Glucose POC Glucose 157 H 117 H 166 H Lactic Acid Calcium Phosphorus Magnesium Iron TIBC Total Bilirubin Direct Bilirubin AST ALT Alkaline Phosphatase Lactate Dehydrogenase CK-MB (CK-2) Troponin T C-Reactive Protein Total Protein Albumin Triglycerides Cholesterol HDL Cholesterol Vitamin B12 Urine Creatinine Urine Total Protein Heparin-induced Plt Ab Hep Bs Antibody, Quant Crossmatch 12/05/16 12/05/16 12/05/16 16:10 16:55 17:08 WBC RBC Hgb Hct MCV MCHC RDW Plt Count Seg Neuts % (Manual) Lymphocytes % (Manual) Monocytes % (Manual) Nucleated RBC % Seg Neutrophils # Man Lymphocytes # (Manual) Monocytes # (Manual) Percent Retic Haptoglobin PT INR Fibrinogen D-Dimer POC ABG pH POC ABG pCO2 POC ABG pO2 Sodium Potassium Chloride Carbon Dioxide BUN Creatinine Glucose POC Glucose 178 H 169 H Lactic Acid Calcium Phosphorus 5.00 H D Magnesium Iron TIBC Total Bilirubin Direct Bilirubin AST ALT Alkaline Phosphatase Lactate Dehydrogenase CK-MB (CK-2) Troponin T C-Reactive Protein Total Protein Albumin Triglycerides Cholesterol HDL Cholesterol Vitamin B12 Urine Creatinine Urine Total Protein Heparin-induced Plt Ab Hep Bs Antibody, Quant Crossmatch 12/05/16 12/05/16 12/05/16 18:08 18:51 20:04 WBC RBC Hgb Hct MCV MCHC RDW Plt Count Seg Neuts % (Manual) Lymphocytes % (Manual) Monocytes % (Manual) Nucleated RBC % Seg Neutrophils # Man Lymphocytes # (Manual) Monocytes # (Manual) Percent Retic Haptoglobin PT INR Fibrinogen D-Dimer POC ABG pH POC ABG pCO2 POC ABG pO2 Sodium Potassium Chloride Carbon Dioxide BUN Creatinine Glucose POC Glucose 147 H 113 H 64 L Lactic Acid Calcium Phosphorus Magnesium Iron TIBC Total Bilirubin Direct Bilirubin AST ALT Alkaline Phosphatase Lactate Dehydrogenase CK-MB (CK-2) Troponin T C-Reactive Protein Total Protein Albumin Triglycerides Cholesterol HDL Cholesterol Vitamin B12 Urine Creatinine Urine Total Protein Heparin-induced Plt Ab Hep Bs Antibody, Quant Crossmatch 12/05/16 12/05/16 12/05/16 21:34 22:08 23:19 WBC RBC Hgb Hct MCV MCHC RDW Plt Count Seg Neuts % (Manual) Lymphocytes % (Manual) Monocytes % (Manual) Nucleated RBC % Seg Neutrophils # Man Lymphocytes # (Manual) Monocytes # (Manual) Percent Retic Haptoglobin PT INR Fibrinogen D-Dimer POC ABG pH 7.303 L POC ABG pCO2 18.3 L POC ABG pO2 73 L Sodium Potassium Chloride Carbon Dioxide BUN Creatinine Glucose POC Glucose 141 H 200 H Lactic Acid Calcium Phosphorus Magnesium Iron TIBC Total Bilirubin Direct Bilirubin AST ALT Alkaline Phosphatase Lactate Dehydrogenase CK-MB (CK-2) Troponin T C-Reactive Protein Total Protein Albumin Triglycerides Cholesterol HDL Cholesterol Vitamin B12 Urine Creatinine Urine Total Protein Heparin-induced Plt Ab Hep Bs Antibody, Quant Crossmatch 12/06/16 12/06/16 12/06/16 00:01 01:09 02:00 WBC RBC Hgb Hct MCV MCHC RDW Plt Count Seg Neuts % (Manual) Lymphocytes % (Manual) Monocytes % (Manual) Nucleated RBC % Seg Neutrophils # Man Lymphocytes # (Manual) Monocytes # (Manual) Percent Retic Haptoglobin PT INR Fibrinogen D-Dimer POC ABG pH POC ABG pCO2 POC ABG pO2 Sodium Potassium Chloride Carbon Dioxide BUN Creatinine Glucose POC Glucose 211 H 116 H 57 L Lactic Acid Calcium Phosphorus Magnesium Iron TIBC Total Bilirubin Direct Bilirubin AST ALT Alkaline Phosphatase Lactate Dehydrogenase CK-MB (CK-2) Troponin T C-Reactive Protein Total Protein Albumin Triglycerides Cholesterol HDL Cholesterol Vitamin B12 Urine Creatinine Urine Total Protein Heparin-induced Plt Ab Hep Bs Antibody, Quant Crossmatch 12/06/16 12/06/16 12/06/16 04:14 04:50 04:50 WBC RBC 2.68 L Hgb 7.6 L Hct 23.2 L MCV MCHC RDW 18.9 H Plt Count Seg Neuts % (Manual) 32.0 L Lymphocytes % (Manual) Monocytes % (Manual) Nucleated RBC % 3.0 H Seg Neutrophils # Man Lymphocytes # (Manual) 0.9 L Monocytes # (Manual) Percent Retic Haptoglobin PT INR Fibrinogen D-Dimer POC ABG pH POC ABG pCO2 POC ABG pO2 Sodium Potassium 5.8 H D Chloride 111.5 H Carbon Dioxide 11 L BUN 52 H Creatinine 3.8 H Glucose 186 H POC Glucose 133 H Lactic Acid Calcium 6.5 L D Phosphorus 5.80 H Magnesium Iron TIBC Total Bilirubin Direct Bilirubin AST ALT Alkaline Phosphatase Lactate Dehydrogenase CK-MB (CK-2) Troponin T C-Reactive Protein Total Protein Albumin Triglycerides Cholesterol HDL Cholesterol Vitamin B12 Urine Creatinine Urine Total Protein Heparin-induced Plt Ab Hep Bs Antibody, Quant Crossmatch 12/06/16 12/06/16 12/06/16 04:50 05:04 05:07 WBC RBC Hgb Hct MCV MCHC RDW Plt Count Seg Neuts % (Manual) Lymphocytes % (Manual) Monocytes % (Manual) Nucleated RBC % Seg Neutrophils # Man Lymphocytes # (Manual) Monocytes # (Manual) Percent Retic Haptoglobin PT INR Fibrinogen D-Dimer POC ABG pH POC ABG pCO2 13.0 L POC ABG pO2 111 H Sodium Potassium Chloride Carbon Dioxide BUN Creatinine Glucose POC Glucose 127 H Lactic Acid 6.50 H* Calcium Phosphorus Magnesium Iron TIBC Total Bilirubin Direct Bilirubin AST ALT Alkaline Phosphatase Lactate Dehydrogenase CK-MB (CK-2) Troponin T C-Reactive Protein Total Protein Albumin Triglycerides Cholesterol HDL Cholesterol Vitamin B12 Urine Creatinine Urine Total Protein Heparin-induced Plt Ab Hep Bs Antibody, Quant Crossmatch 12/06/16 12/06/16 12/06/16 06:10 06:54 07:46 WBC RBC Hgb Hct MCV MCHC RDW Plt Count Seg Neuts % (Manual) Lymphocytes % (Manual) Monocytes % (Manual) Nucleated RBC % Seg Neutrophils # Man Lymphocytes # (Manual) Monocytes # (Manual) Percent Retic Haptoglobin PT INR Fibrinogen D-Dimer POC ABG pH POC ABG pCO2 POC ABG pO2 Sodium Potassium Chloride Carbon Dioxide BUN Creatinine Glucose POC Glucose 219 H 237 H 158 H Lactic Acid Calcium Phosphorus Magnesium Iron TIBC Total Bilirubin Direct Bilirubin AST ALT Alkaline Phosphatase Lactate Dehydrogenase CK-MB (CK-2) Troponin T C-Reactive Protein Total Protein Albumin Triglycerides Cholesterol HDL Cholesterol Vitamin B12 Urine Creatinine Urine Total Protein Heparin-induced Plt Ab Hep Bs Antibody, Quant Crossmatch 12/06/16 12/06/16 12/06/16 08:55 10:27 11:58 WBC RBC Hgb Hct MCV MCHC RDW Plt Count Seg Neuts % (Manual) Lymphocytes % (Manual) Monocytes % (Manual) Nucleated RBC % Seg Neutrophils # Man Lymphocytes # (Manual) Monocytes # (Manual) Percent Retic Haptoglobin PT INR Fibrinogen D-Dimer POC ABG pH POC ABG pCO2 POC ABG pO2 Sodium Potassium Chloride Carbon Dioxide BUN Creatinine Glucose POC Glucose 40 L 128 H 144 H Lactic Acid Calcium Phosphorus Magnesium Iron TIBC Total Bilirubin Direct Bilirubin AST ALT Alkaline Phosphatase Lactate Dehydrogenase CK-MB (CK-2) Troponin T C-Reactive Protein Total Protein Albumin Triglycerides Cholesterol HDL Cholesterol Vitamin B12 Urine Creatinine Urine Total Protein Heparin-induced Plt Ab Hep Bs Antibody, Quant Crossmatch 12/06/16 12/06/16 12/06/16 18:14 19:00 19:06 WBC RBC Hgb Hct MCV MCHC RDW Plt Count Seg Neuts % (Manual) Lymphocytes % (Manual) Monocytes % (Manual) Nucleated RBC % Seg Neutrophils # Man Lymphocytes # (Manual) Monocytes # (Manual) Percent Retic Haptoglobin PT INR Fibrinogen D-Dimer POC ABG pH POC ABG pCO2 POC ABG pO2 Sodium 149 H Potassium 5.6 H Chloride 115.9 H Carbon Dioxide 13 L BUN 56 H Creatinine 4.3 H Glucose 124 H POC Glucose 55 L 148 H Lactic Acid Calcium 6.0 L Phosphorus Magnesium Iron TIBC Total Bilirubin Direct Bilirubin AST ALT Alkaline Phosphatase Lactate Dehydrogenase CK-MB (CK-2) Troponin T C-Reactive Protein Total Protein Albumin Triglycerides Cholesterol HDL Cholesterol Vitamin B12 Urine Creatinine Urine Total Protein Heparin-induced Plt Ab Hep Bs Antibody, Quant Crossmatch 12/06/16 12/06/16 12/07/16 21:24 21:51 02:32 WBC RBC Hgb Hct MCV MCHC RDW Plt Count Seg Neuts % (Manual) Lymphocytes % (Manual) Monocytes % (Manual) Nucleated RBC % Seg Neutrophils # Man Lymphocytes # (Manual) Monocytes # (Manual) Percent Retic Haptoglobin PT INR Fibrinogen D-Dimer POC ABG pH POC ABG pCO2 17.0 L POC ABG pO2 142 H Sodium Potassium Chloride Carbon Dioxide BUN Creatinine Glucose POC Glucose 107 H 175 H Lactic Acid Calcium Phosphorus Magnesium Iron TIBC Total Bilirubin Direct Bilirubin AST ALT Alkaline Phosphatase Lactate Dehydrogenase CK-MB (CK-2) Troponin T C-Reactive Protein Total Protein Albumin Triglycerides Cholesterol HDL Cholesterol Vitamin B12 Urine Creatinine Urine Total Protein Heparin-induced Plt Ab Hep Bs Antibody, Quant Crossmatch 12/07/16 12/07/16 12/07/16 05:01 05:25 06:00 WBC RBC 2.52 L Hgb 7.1 L Hct 22.1 L MCV MCHC RDW 19.3 H Plt Count 90 L Seg Neuts % (Manual) 75.0 H Lymphocytes % (Manual) 11.0 L Monocytes % (Manual) Nucleated RBC % Seg Neutrophils # Man Lymphocytes # (Manual) 0.7 L Monocytes # (Manual) Percent Retic Haptoglobin PT INR Fibrinogen D-Dimer POC ABG pH 7.300 L POC ABG pCO2 17.1 L POC ABG pO2 140 H Sodium Potassium Chloride Carbon Dioxide BUN Creatinine Glucose POC Glucose 279 H Lactic Acid Calcium Phosphorus Magnesium Iron TIBC Total Bilirubin Direct Bilirubin AST ALT Alkaline Phosphatase Lactate Dehydrogenase CK-MB (CK-2) Troponin T C-Reactive Protein Total Protein Albumin Triglycerides Cholesterol HDL Cholesterol Vitamin B12 Urine Creatinine Urine Total Protein Heparin-induced Plt Ab Hep Bs Antibody, Quant Crossmatch 12/07/16 12/07/16 12/07/16 06:00 06:00 07:30 WBC RBC Hgb Hct MCV MCHC RDW Plt Count Seg Neuts % (Manual) Lymphocytes % (Manual) Monocytes % (Manual) Nucleated RBC % Seg Neutrophils # Man Lymphocytes # (Manual) Monocytes # (Manual) Percent Retic Haptoglobin PT INR Fibrinogen D-Dimer POC ABG pH POC ABG pCO2 POC ABG pO2 Sodium Potassium Chloride Carbon Dioxide BUN Creatinine Glucose POC Glucose Lactic Acid 6.90 H* Calcium Phosphorus 6.80 H Magnesium Iron TIBC Total Bilirubin Direct Bilirubin AST ALT Alkaline Phosphatase Lactate Dehydrogenase CK-MB (CK-2) Troponin T C-Reactive Protein 39.40 H Total Protein Albumin Triglycerides Cholesterol HDL Cholesterol Vitamin B12 Urine Creatinine Urine Total Protein Heparin-induced Plt Ab Hep Bs Antibody, Quant Crossmatch 12/07/16 12/07/16 12/07/16 08:40 10:53 14:31 WBC RBC Hgb Hct MCV MCHC RDW Plt Count Seg Neuts % (Manual) Lymphocytes % (Manual) Monocytes % (Manual) Nucleated RBC % Seg Neutrophils # Man Lymphocytes # (Manual) Monocytes # (Manual) Percent Retic Haptoglobin PT INR Fibrinogen D-Dimer POC ABG pH POC ABG pCO2 POC ABG pO2 Sodium Potassium 7.0 H* D Chloride 112.4 H Carbon Dioxide 8 L* BUN 61 H Creatinine 5.1 H Glucose 213 H POC Glucose 353 H 52 L Lactic Acid Calcium 5.8 L* Phosphorus Magnesium Iron TIBC Total Bilirubin Direct Bilirubin AST ALT Alkaline Phosphatase Lactate Dehydrogenase CK-MB (CK-2) Troponin T C-Reactive Protein Total Protein Albumin Triglycerides Cholesterol HDL Cholesterol Vitamin B12 Urine Creatinine Urine Total Protein Heparin-induced Plt Ab Hep Bs Antibody, Quant Crossmatch 12/07/16 12/07/16 12/07/16 14:45 15:33 16:22 WBC RBC Hgb Hct MCV MCHC RDW Plt Count Seg Neuts % (Manual) Lymphocytes % (Manual) Monocytes % (Manual) Nucleated RBC % Seg Neutrophils # Man Lymphocytes # (Manual) Monocytes # (Manual) Percent Retic Haptoglobin PT 17.5 H INR 1.44 H Fibrinogen D-Dimer POC ABG pH POC ABG pCO2 POC ABG pO2 Sodium Potassium Chloride Carbon Dioxide BUN Creatinine Glucose POC Glucose < 40 L 118 H Lactic Acid Calcium Phosphorus Magnesium Iron TIBC Total Bilirubin Direct Bilirubin AST ALT Alkaline Phosphatase Lactate Dehydrogenase CK-MB (CK-2) Troponin T C-Reactive Protein Total Protein Albumin Triglycerides Cholesterol HDL Cholesterol Vitamin B12 Urine Creatinine Urine Total Protein Heparin-induced Plt Ab Hep Bs Antibody, Quant Crossmatch 12/07/16 12/07/16 12/07/16 21:35 21:35 21:58 WBC RBC Hgb Hct MCV MCHC RDW Plt Count Seg Neuts % (Manual) Lymphocytes % (Manual) Monocytes % (Manual) Nucleated RBC % Seg Neutrophils # Man Lymphocytes # (Manual) Monocytes # (Manual) Percent Retic Haptoglobin PT INR Fibrinogen D-Dimer POC ABG pH POC ABG pCO2 POC ABG pO2 Sodium 150 H Potassium 3.3 L D Chloride 111.4 H Carbon Dioxide 21 L D BUN 22 H Creatinine 2.6 H Glucose 23 L* POC Glucose < 40 L Lactic Acid Calcium Phosphorus Magnesium Iron TIBC Total Bilirubin 1.40 H Direct Bilirubin 0.9 H AST 94 H ALT 142 H Alkaline Phosphatase 249 H Lactate Dehydrogenase CK-MB (CK-2) Troponin T C-Reactive Protein Total Protein 4.6 L D Albumin 2.1 L Triglycerides Cholesterol HDL Cholesterol Vitamin B12 Urine Creatinine Urine Total Protein Heparin-induced Plt Ab Hep Bs Antibody, Quant Crossmatch 12/07/16 12/08/16 12/08/16 23:31 04:43 04:50 WBC RBC 2.35 L Hgb 6.6 L Hct 20.1 L MCV MCHC RDW 17.8 H Plt Count 48 L Seg Neuts % (Manual) Lymphocytes % (Manual) Monocytes % (Manual) Nucleated RBC % Seg Neutrophils # Man Lymphocytes # (Manual) 0.9 L Monocytes # (Manual) Percent Retic Haptoglobin PT INR Fibrinogen D-Dimer POC ABG pH 7.586 H POC ABG pCO2 17.7 L POC ABG pO2 150 H Sodium Potassium Chloride Carbon Dioxide BUN Creatinine Glucose POC Glucose 42 L Lactic Acid Calcium Phosphorus Magnesium Iron TIBC Total Bilirubin Direct Bilirubin AST ALT Alkaline Phosphatase Lactate Dehydrogenase CK-MB (CK-2) Troponin T C-Reactive Protein Total Protein Albumin Triglycerides Cholesterol HDL Cholesterol Vitamin B12 Urine Creatinine Urine Total Protein Heparin-induced Plt Ab Hep Bs Antibody, Quant Crossmatch 12/08/16 12/08/16 12/08/16 04:50 04:59 06:54 WBC RBC Hgb Hct MCV MCHC RDW Plt Count Seg Neuts % (Manual) Lymphocytes % (Manual) Monocytes % (Manual) Nucleated RBC % Seg Neutrophils # Man Lymphocytes # (Manual) Monocytes # (Manual) Percent Retic Haptoglobin PT INR Fibrinogen D-Dimer POC ABG pH POC ABG pCO2 POC ABG pO2 Sodium 149 H Potassium 3.2 L Chloride 111.8 H Carbon Dioxide 17 L BUN 26 H Creatinine 3.4 H Glucose 163 H POC Glucose 204 H 203 H Lactic Acid Calcium 7.7 L Phosphorus 2.40 L D Magnesium Iron TIBC Total Bilirubin Direct Bilirubin AST ALT Alkaline Phosphatase Lactate Dehydrogenase CK-MB (CK-2) Troponin T C-Reactive Protein Total Protein Albumin Triglycerides Cholesterol HDL Cholesterol Vitamin B12 Urine Creatinine Urine Total Protein Heparin-induced Plt Ab Hep Bs Antibody, Quant Crossmatch 12/08/16 12/08/16 12/08/16 08:04 08:46 08:46 WBC RBC Hgb Hct MCV MCHC RDW Plt Count Seg Neuts % (Manual) Lymphocytes % (Manual) Monocytes % (Manual) Nucleated RBC % Seg Neutrophils # Man Lymphocytes # (Manual) Monocytes # (Manual) Percent Retic Haptoglobin PT INR Fibrinogen D-Dimer POC ABG pH POC ABG pCO2 POC ABG pO2 Sodium 147 H Potassium 2.9 L* Chloride 110.6 H Carbon Dioxide 17 L BUN 28 H Creatinine 3.6 H Glucose 127 H POC Glucose 205 H Lactic Acid Calcium 7.3 L Phosphorus Magnesium Iron TIBC Total Bilirubin Direct Bilirubin AST ALT Alkaline Phosphatase Lactate Dehydrogenase CK-MB (CK-2) Troponin T C-Reactive Protein Total Protein Albumin Triglycerides Cholesterol HDL Cholesterol Vitamin B12 Urine Creatinine Urine Total Protein Heparin-induced Plt Ab Hep Bs Antibody, Quant Crossmatch See Detail 12/08/16 12/08/16 12/08/16 12:36 19:00 19:00 WBC RBC Hgb Hct MCV MCHC RDW Plt Count Seg Neuts % (Manual) Lymphocytes % (Manual) Monocytes % (Manual) Nucleated RBC % Seg Neutrophils # Man Lymphocytes # (Manual) Monocytes # (Manual) Percent Retic Haptoglobin PT 15.3 H INR 1.22 H Fibrinogen 563 H D-Dimer 5507.36 H POC ABG pH POC ABG pCO2 POC ABG pO2 Sodium Potassium Chloride Carbon Dioxide 21 L BUN Creatinine 1.7 H D Glucose 155 H POC Glucose 181 H Lactic Acid Calcium Phosphorus Magnesium Iron TIBC Total Bilirubin Direct Bilirubin AST ALT Alkaline Phosphatase Lactate Dehydrogenase CK-MB (CK-2) Troponin T C-Reactive Protein Total Protein Albumin Triglycerides Cholesterol HDL Cholesterol Vitamin B12 Urine Creatinine Urine Total Protein Heparin-induced Plt Ab Hep Bs Antibody, Quant Crossmatch 12/08/16 12/08/16 12/08/16 19:00 19:00 21:30 WBC RBC 2.76 L Hgb 7.8 L Hct 23.7 L MCV MCHC RDW 17.0 H Plt Count 38 L Seg Neuts % (Manual) Lymphocytes % (Manual) Monocytes % (Manual) Nucleated RBC % Seg Neutrophils # Man Lymphocytes # (Manual) Monocytes # (Manual) Percent Retic Haptoglobin 271 H PT INR Fibrinogen D-Dimer POC ABG pH POC ABG pCO2 POC ABG pO2 Sodium Potassium Chloride Carbon Dioxide BUN Creatinine Glucose POC Glucose Lactic Acid Calcium Phosphorus Magnesium Iron TIBC Total Bilirubin Direct Bilirubin AST ALT Alkaline Phosphatase Lactate Dehydrogenase 382 H CK-MB (CK-2) Troponin T C-Reactive Protein Total Protein Albumin Triglycerides Cholesterol HDL Cholesterol Vitamin B12 Urine Creatinine Urine Total Protein Heparin-induced Plt Ab Hep Bs Antibody, Quant Crossmatch 12/08/16 12/08/16 12/09/16 23:32 23:44 05:22 WBC RBC Hgb Hct MCV MCHC RDW Plt Count Seg Neuts % (Manual) Lymphocytes % (Manual) Monocytes % (Manual) Nucleated RBC % Seg Neutrophils # Man Lymphocytes # (Manual) Monocytes # (Manual) Percent Retic Haptoglobin PT INR Fibrinogen D-Dimer POC ABG pH 7.498 H POC ABG pCO2 25.2 L POC ABG pO2 137 H Sodium Potassium Chloride Carbon Dioxide BUN Creatinine Glucose POC Glucose 311 H 113 H Lactic Acid Calcium Phosphorus Magnesium Iron TIBC Total Bilirubin Direct Bilirubin AST ALT Alkaline Phosphatase Lactate Dehydrogenase CK-MB (CK-2) Troponin T C-Reactive Protein Total Protein Albumin Triglycerides Cholesterol HDL Cholesterol Vitamin B12 Urine Creatinine Urine Total Protein Heparin-induced Plt Ab Hep Bs Antibody, Quant Crossmatch 12/09/16 12/09/16 12/09/16 06:00 11:29 11:59 WBC RBC Hgb Hct MCV MCHC RDW Plt Count Seg Neuts % (Manual) Lymphocytes % (Manual) Monocytes % (Manual) Nucleated RBC % Seg Neutrophils # Man Lymphocytes # (Manual) Monocytes # (Manual) Percent Retic 0.23 L Haptoglobin PT INR Fibrinogen D-Dimer POC ABG pH POC ABG pCO2 POC ABG pO2 Sodium Potassium Chloride 110.2 H Carbon Dioxide 18 L BUN 19 H Creatinine 2.5 H Glucose 105 H POC Glucose 254 H Lactic Acid Calcium Phosphorus 2.00 L Magnesium Iron TIBC Total Bilirubin Direct Bilirubin AST ALT Alkaline Phosphatase Lactate Dehydrogenase CK-MB (CK-2) Troponin T C-Reactive Protein Total Protein Albumin Triglycerides Cholesterol HDL Cholesterol Vitamin B12 Urine Creatinine Urine Total Protein Heparin-induced Plt Ab Hep Bs Antibody, Quant Crossmatch 12/09/16 12/09/16 12/09/16 12:02 13:27 13:27 WBC RBC Hgb Hct MCV MCHC RDW Plt Count Seg Neuts % (Manual) Lymphocytes % (Manual) Monocytes % (Manual) Nucleated RBC % Seg Neutrophils # Man Lymphocytes # (Manual) Monocytes # (Manual) Percent Retic Haptoglobin PT INR Fibrinogen D-Dimer POC ABG pH 7.326 L POC ABG pCO2 POC ABG pO2 115 H Sodium Potassium Chloride Carbon Dioxide BUN Creatinine Glucose POC Glucose Lactic Acid Calcium Phosphorus Magnesium Iron 15 L TIBC 134 L Total Bilirubin Direct Bilirubin AST ALT Alkaline Phosphatase Lactate Dehydrogenase CK-MB (CK-2) Troponin T C-Reactive Protein Total Protein Albumin Triglycerides Cholesterol HDL Cholesterol Vitamin B12 > 2000 H Urine Creatinine Urine Total Protein Heparin-induced Plt Ab Hep Bs Antibody, Quant Crossmatch 12/09/16 12/09/16 12/09/16 13:27 13:27 16:28 WBC RBC Hgb Hct MCV MCHC RDW Plt Count Seg Neuts % (Manual) Lymphocytes % (Manual) Monocytes % (Manual) Nucleated RBC % Seg Neutrophils # Man Lymphocytes # (Manual) Monocytes # (Manual) Percent Retic Haptoglobin PT INR Fibrinogen D-Dimer POC ABG pH POC ABG pCO2 POC ABG pO2 Sodium Potassium Chloride Carbon Dioxide BUN Creatinine Glucose POC Glucose 199 H Lactic Acid Calcium Phosphorus Magnesium Iron TIBC Total Bilirubin Direct Bilirubin AST ALT Alkaline Phosphatase Lactate Dehydrogenase CK-MB (CK-2) Troponin T C-Reactive Protein Total Protein Albumin Triglycerides Cholesterol HDL Cholesterol Vitamin B12 Urine Creatinine Urine Total Protein Heparin-induced Plt Ab Weak positive H Hep Bs Antibody, Quant <5 L Crossmatch 12/09/16 12/09/16 12/10/16 23:27 Unknown 05:36 WBC 11.3 H RBC 2.92 L Hgb 8.4 L Hct 25.3 L MCV MCHC RDW 16.9 H Plt Count 31 L Seg Neuts % (Manual) Lymphocytes % (Manual) Monocytes % (Manual) Nucleated RBC % Seg Neutrophils # Man Lymphocytes # (Manual) Monocytes # (Manual) Percent Retic Haptoglobin PT INR Fibrinogen D-Dimer POC ABG pH POC ABG pCO2 POC ABG pO2 Sodium Potassium Chloride Carbon Dioxide BUN Creatinine Glucose POC Glucose 247 H 248 H Lactic Acid Calcium Phosphorus Magnesium Iron TIBC Total Bilirubin Direct Bilirubin AST ALT Alkaline Phosphatase Lactate Dehydrogenase CK-MB (CK-2) Troponin T C-Reactive Protein Total Protein Albumin Triglycerides Cholesterol HDL Cholesterol Vitamin B12 Urine Creatinine Urine Total Protein Heparin-induced Plt Ab Hep Bs Antibody, Quant Crossmatch 12/10/16 12/10/16 12/10/16 09:55 09:55 11:49 WBC 21.2 H RBC 3.37 L Hgb 9.6 L Hct 29.5 L MCV MCHC RDW 16.3 H Plt Count 102 L D Seg Neuts % (Manual) Lymphocytes % (Manual) Monocytes % (Manual) Nucleated RBC % Seg Neutrophils # Man Lymphocytes # (Manual) Monocytes # (Manual) Percent Retic Haptoglobin PT INR Fibrinogen D-Dimer POC ABG pH POC ABG pCO2 POC ABG pO2 Sodium Potassium Chloride 107.4 H Carbon Dioxide 21 L BUN 37 H Creatinine 4.2 H D Glucose 174 H POC Glucose 265 H Lactic Acid Calcium Phosphorus Magnesium Iron TIBC Total Bilirubin Direct Bilirubin AST ALT Alkaline Phosphatase Lactate Dehydrogenase CK-MB (CK-2) Troponin T C-Reactive Protein Total Protein Albumin Triglycerides Cholesterol HDL Cholesterol Vitamin B12 Urine Creatinine Urine Total Protein Heparin-induced Plt Ab Hep Bs Antibody, Quant Crossmatch 12/10/16 12/10/16 12/11/16 17:56 23:44 04:30 WBC 23.5 H RBC 3.46 L Hgb 9.7 L Hct 30.1 L MCV MCHC RDW 16.4 H Plt Count 115 L Seg Neuts % (Manual) 84.0 H Lymphocytes % (Manual) 5.0 L Monocytes % (Manual) 10.0 H Nucleated RBC % 1.0 H Seg Neutrophils # Man 19.7 H Lymphocytes # (Manual) Monocytes # (Manual) 2.4 H Percent Retic Haptoglobin PT INR Fibrinogen D-Dimer POC ABG pH POC ABG pCO2 POC ABG pO2 Sodium Potassium Chloride Carbon Dioxide BUN Creatinine Glucose POC Glucose 118 H 378 H Lactic Acid Calcium Phosphorus Magnesium Iron TIBC Total Bilirubin Direct Bilirubin AST ALT Alkaline Phosphatase Lactate Dehydrogenase CK-MB (CK-2) Troponin T C-Reactive Protein Total Protein Albumin Triglycerides Cholesterol HDL Cholesterol Vitamin B12 Urine Creatinine Urine Total Protein Heparin-induced Plt Ab Hep Bs Antibody, Quant Crossmatch 12/11/16 12/11/16 12/11/16 04:30 05:33 12:48 WBC RBC Hgb Hct MCV MCHC RDW Plt Count Seg Neuts % (Manual) Lymphocytes % (Manual) Monocytes % (Manual) Nucleated RBC % Seg Neutrophils # Man Lymphocytes # (Manual) Monocytes # (Manual) Percent Retic Haptoglobin PT INR Fibrinogen D-Dimer POC ABG pH POC ABG pCO2 POC ABG pO2 Sodium Potassium Chloride Carbon Dioxide 21 L BUN 50 H Creatinine 4.8 H Glucose 303 H POC Glucose 335 H 325 H Lactic Acid Calcium 8.2 L Phosphorus Magnesium Iron TIBC Total Bilirubin Direct Bilirubin AST ALT Alkaline Phosphatase Lactate Dehydrogenase CK-MB (CK-2) Troponin T C-Reactive Protein Total Protein Albumin Triglycerides Cholesterol HDL Cholesterol Vitamin B12 Urine Creatinine Urine Total Protein Heparin-induced Plt Ab Hep Bs Antibody, Quant Crossmatch 12/11/16 12/11/16 12/12/16 17:49 21:16 00:49 WBC RBC Hgb Hct MCV MCHC RDW Plt Count Seg Neuts % (Manual) Lymphocytes % (Manual) Monocytes % (Manual) Nucleated RBC % Seg Neutrophils # Man Lymphocytes # (Manual) Monocytes # (Manual) Percent Retic Haptoglobin PT INR Fibrinogen D-Dimer POC ABG pH POC ABG pCO2 POC ABG pO2 Sodium Potassium Chloride Carbon Dioxide BUN Creatinine Glucose POC Glucose 368 H 162 H 225 H Lactic Acid Calcium Phosphorus Magnesium Iron TIBC Total Bilirubin Direct Bilirubin AST ALT Alkaline Phosphatase Lactate Dehydrogenase CK-MB (CK-2) Troponin T C-Reactive Protein Total Protein Albumin Triglycerides Cholesterol HDL Cholesterol Vitamin B12 Urine Creatinine Urine Total Protein Heparin-induced Plt Ab Hep Bs Antibody, Quant Crossmatch 12/12/16 12/12/16 12/12/16 06:09 07:52 08:18 WBC 24.1 H RBC 3.16 L Hgb 9.0 L Hct 29.4 L MCV MCHC RDW 16.6 H Plt Count 96 L Seg Neuts % (Manual) 75.0 H Lymphocytes % (Manual) Monocytes % (Manual) Nucleated RBC % Seg Neutrophils # Man 18.1 H Lymphocytes # (Manual) Monocytes # (Manual) 1.4 H Percent Retic Haptoglobin PT INR Fibrinogen D-Dimer POC ABG pH POC ABG pCO2 POC ABG pO2 Sodium Potassium Chloride Carbon Dioxide BUN Creatinine Glucose POC Glucose 428 H 418 H Lactic Acid Calcium Phosphorus Magnesium Iron TIBC Total Bilirubin Direct Bilirubin AST ALT Alkaline Phosphatase Lactate Dehydrogenase CK-MB (CK-2) Troponin T C-Reactive Protein Total Protein Albumin Triglycerides Cholesterol HDL Cholesterol Vitamin B12 Urine Creatinine Urine Total Protein Heparin-induced Plt Ab Hep Bs Antibody, Quant Crossmatch 12/12/16 12/12/16 08:18 11:31 WBC RBC Hgb Hct MCV MCHC RDW Plt Count Seg Neuts % (Manual) Lymphocytes % (Manual) Monocytes % (Manual) Nucleated RBC % Seg Neutrophils # Man Lymphocytes # (Manual) Monocytes # (Manual) Percent Retic Haptoglobin PT INR Fibrinogen D-Dimer POC ABG pH POC ABG pCO2 POC ABG pO2 Sodium Potassium Chloride Carbon Dioxide 12 L D BUN 41 H Creatinine 4.5 H Glucose 369 H POC Glucose 212 H Lactic Acid Calcium Phosphorus Magnesium Iron TIBC Total Bilirubin Direct Bilirubin AST ALT Alkaline Phosphatase Lactate Dehydrogenase CK-MB (CK-2) Troponin T C-Reactive Protein Total Protein Albumin Triglycerides Cholesterol HDL Cholesterol Vitamin B12 Urine Creatinine Urine Total Protein Heparin-induced Plt Ab Hep Bs Antibody, Quant Crossmatch Chest x-ray: report reviewed (Mild cardiomegaly, right upper lobe infiltrate.), image reviewed
--- NOTE | 2016-12-12 18:18 | Progress Note ---
Assessment and Plan - Patient Problems (1) Severe sepsis Current Visit: Yes Status: Deleted Plan to address problem: 1. Improved hemodynamically, though WBC count remains elevated. 2. Continue inhaled Tobramycin and Flagyl. Patient has not received today's doses of Tobramycin. 3. Continue to monitor clinically for clear, localizing signs or symptoms. (2) Acute respiratory failure with hypoxemia Current Visit: No Status: Acute Plan to address problem: Per above. Subjective Date of service: 12/12/16 Principal diagnosis: Severe Sepsis; DKA, cardiac arrest Interval history: Transferred from ICU to floor. Afebrile, though continued leukocytosis. Reports 1-2 days of loose BMs. Also reports a single episode of blood-tinged sputum. Objective - Constitutional Vitals: Vital Signs Temp Pulse Resp BP Pulse Ox 98.6 F 117 H 18 131/74 99 12/12/16 17:39 12/12/16 17:39 12/12/16 17:39 12/12/16 17:39 12/12/16 17:39 Temperature -Last 24 Hours Temperature 98.6 F Temperature 98.2 F Temperature 98.7 F Temperature 98.0 F Temperature 97.9 F Temperature 98.2 F Temperature 98.2 F Temperature 97.6 F General appearance: Present: no acute distress - EENT ENT: clear oral mucosa - Neck Neck: supple - Respiratory Respiratory effort: normal Respiratory: bilateral: CTA, negative: rales, rhonchi - Cardiovascular Rhythm: regular Heart Sounds: Present: S1 & S2 (tachycardic) Extremities: No edema - Gastrointestinal General gastrointestinal: Present: soft, non-tender, non-distended, normal bowel sounds - Integumentary Integumentary: clear, no rash - Neurologic Neurologic: CNII-XII intact, no focal deficits - Psychiatric Psychiatric: appropriate mood/affect - Labs CBC & Chem 7: 12/12/16 08:18 12/12/16 08:18 Labs: Abnormal lab results 12/11/16 12/12/16 12/12/16 Range/Units 21:16 00:49 06:09 WBC (4.5-11.0) K/mm3 RBC (3.65-5.03) M/mm3 Hgb (10.1-14.3) gm/dl Hct (30.3-42.9) % RDW (13.2-15.2) % Plt Count (140-440) K/mm3 Seg Neuts % (Manual) (40.0-70.0) % Seg Neutrophils # Man (1.8-7.7) K/mm3 Monocytes # (Manual) (0.0-0.8) K/mm3 Carbon Dioxide (22-30) mmol/L BUN (7-17) mg/dL Creatinine (0.7-1.2) mg/dL Glucose (65-100) mg/dL POC Glucose 162 H 225 H 428 H (70-105) 12/12/16 12/12/16 12/12/16 Range/Units 07:52 08:18 08:18 WBC 24.1 H (4.5-11.0) K/mm3 RBC 3.16 L (3.65-5.03) M/mm3 Hgb 9.0 L (10.1-14.3) gm/dl Hct 29.4 L (30.3-42.9) % RDW 16.6 H (13.2-15.2) % Plt Count 96 L (140-440) K/mm3 Seg Neuts % (Manual) 75.0 H (40.0-70.0) % Seg Neutrophils # Man 18.1 H (1.8-7.7) K/mm3 Monocytes # (Manual) 1.4 H (0.0-0.8) K/mm3 Carbon Dioxide 12 L D (22-30) mmol/L BUN 41 H (7-17) mg/dL Creatinine 4.5 H (0.7-1.2) mg/dL Glucose 369 H (65-100) mg/dL POC Glucose 418 H (70-105) 12/12/16 12/12/16 Range/Units 11:31 17:03 WBC (4.5-11.0) K/mm3 RBC (3.65-5.03) M/mm3 Hgb (10.1-14.3) gm/dl Hct (30.3-42.9) % RDW (13.2-15.2) % Plt Count (140-440) K/mm3 Seg Neuts % (Manual) (40.0-70.0) % Seg Neutrophils # Man (1.8-7.7) K/mm3 Monocytes # (Manual) (0.0-0.8) K/mm3 Carbon Dioxide (22-30) mmol/L BUN (7-17) mg/dL Creatinine (0.7-1.2) mg/dL Glucose (65-100) mg/dL POC Glucose 212 H 422 H (70-105) Microbiology 12/11/16 10:24 Central Venous Line Blood Culture - Preliminary NO GROWTH AFTER 24 HOURS 12/05/16 05:19 Peripheral/Venous Blood Culture - Final NO GROWTH AFTER 5 DAYS 12/05/16 04:44 Peripheral/Venous Blood Culture - Final NO GROWTH AFTER 5 DAYS 12/03/16 23:20 Peripheral/Venous Blood Culture - Final Coag Negative Staphylococcus 12/06/16 21:55 Tracheal Aspirate Sputum Culture - Final Pseudomonas Aeruginosa 12/03/16 23:20 Peripheral/Venous Blood Culture - Final NO GROWTH AFTER 5 DAYS 12/04/16 01:05 Tracheal Aspirate Sputum Culture - Final
[2016-12-12] MEDS ORDERED: LEVEMIR SUB-Q SCH (22:00)
[2016-12-13] MEDS: TOBRAMYCIN INHALATION (NICU) (40 MG/ML) IH SCH ×3 (01:07→21:37)
[2016-12-13] MEDS: REGLAN IV SCH ×4 (01:15→23:06)
[2016-12-13] MEDS: FLAGYL 500 MG/100 ML 500 MG/100 ML BAG IV SCH ×3 (05:43→23:05)
[2016-12-13 08:34] LABS: Hematocrit 25.8 % (30.3-42.9); Hemoglobin 8.3 gm/dl (10.1-14.3); Mean Corpuscular HGB Conc 32 % (30-34); Mean Corpuscular Hemoglobin 29 pg (28-32); Mean Corpuscular Volume 89 fl (79-97); Platelet Count 120 K/mm3 (140-440); Red Cell Distribution Width 15.5 % (13.2-15.2)
[2016-12-13 08:49] LABS: Calcium 8.8 mg/dL (8.4-10.2); Chloride 103.8 mmol/L (98-107); Phosphorous 2.6 mg/dL (2.5-4.5); Potassium 3.2 mmol/L (3.6-5.0)
--- NOTE | 2016-12-13 09:55 | XRay Report ---
CHEST TWO VIEWS: 12/13/16 CLINICAL: Followup right upper lobe pneumonia. COMPARISON: 12/11/16 FINDINGS: Persistent consolidation in the right upper lobe and new streaky and diffuse opacities of the right lower lobe. The left lung is normally expanded and clear. The heart is borderline enlarged. Central vascular congestion.A PICC line tip is in the distal SVC. IMPRESSION: Persistent right upper lobe pneumonia and new right lower lobe pneumonia.
[2016-12-13] MEDS: NOVOLOG SUB-Q SCH ×4 (10:12→23:12)
[2016-12-13] MEDS: PEPCID PO SCH (10:13)
[2016-12-13 10:32] LABS: Basophils % (Manual) 0 % (0.0-1.8); Blastocytes % (Manual) 0 %; Eosinophils % (Manual) 0 % (0.0-4.3)
[2016-12-13 10:33] LABS: Anisocytosis 1+
[2016-12-13 10:34] LABS: Diff Status Complete; Hypochromasia 1+; Target Cells Few
[2016-12-13 10:35] LABS: Large Platelets Rare; Platelet Estimate Cons
--- NOTE | 2016-12-13 12:36 | Progress Note ---
Assessment and Plan Assessment and plan: Patient is a 46-year-old woman with history of insulin-dependent diabetes mellitus, hypertension, recent SAH and dyslipidemia who presented with DKA, AMS and STEMI with V. fib arrest requiring IV amiodarone suppression. She intubated and she was on IV insulin drip for documented DKA, Levophed, IV vancomycin and propofol drip. She has a right groin triple-lumen catheter, Short and NG tube. ET tube removed. Extubated 12/09/16 doing well. Off pressors, diprivan. -Cardiac arrest with V. fib: Cardiology is following -ARF, ATN, poa: renal is following, status post hemodialysis -Acute hypoxic respiratory failure, extubated: Application Security Developer is following -Cardiac arrest was STEMI: Cardiology is following -Suspected DKA: Status post insulin drip -Metabolic Acidosis, treat the DKA -Acute metabolic encephalopathy, poa, resolved -Leukocytosis +GNR in trach aspirate, pseudomonas aeruginosa: ID is following on IV Merrem -DVT prophylaxis: SCDs only due to recent SAH -Thrombocytopenia due to sepsis, improved status post platelet transfusion -Acute on chronic anemia of chronic disease s/p 2 unit of prbc, monitoring closely 12/11/2016: poor guarded, doing better today. d/w Dr. Lisa lugo to transfer out the ICU 12/12/2016: NG tube removed yesterday she is on mechanical soft ground meats and nectar thickened liquids, D/C the Short. She still has left arm PICC line. She doesn't much better. Main issue today is hyperglycemia, will increase insulin and start Levemir 12/13/16: hypoglycemic, reduce Levemir. D/w RN now 231 after d5. Not eating much. History Interval history: Patient seen and examined. Follow up on cardiac arrest, Imaging, old records, testing, labs, nursing notes reviewed. Patient states she feels better. She denies any shortness of breath, chest pain. Hospitalist Physical - Physical exam Narrative exam: GEN: NAD, AWAKE, ALERT, ORIENTATED x 3 CVS: Regular tachycardic, NORMAL S1S2 LUNGS/CHEST: NORMAL CHEST EXPANSION B, improved ENTRY B ABD: SOFT, NTND, GBS, NO REBOUND OR GUARDING MSK: FROM X 4 EXTREMITIES NEURO: CN 2-12 GROSSLY INTACT, NO new FOCAL DEFICITS PSY: CALM - Constitutional Vitals: Temp Pulse Resp BP Pulse Ox 98.0 F 95 H 16 147/84 100 12/13/16 08:25 12/13/16 08:57 12/13/16 08:57 12/13/16 08:25 12/13/16 08:25 General appearance: Present: no acute distress Results - Labs CBC & Chem 7: 12/13/16 07:49 12/13/16 07:49 Labs: Laboratory Last Values WBC 24.0 K/mm3 (4.5-11.0) H 12/13/16 07:49 RBC 2.90 M/mm3 (3.65-5.03) L 12/13/16 07:49 Hgb 8.3 gm/dl (10.1-14.3) L 12/13/16 07:49 Hct 25.8 % (30.3-42.9) L 12/13/16 07:49 MCV 89 fl (79-97) D 12/13/16 07:49 MCH 29 pg (28-32) 12/13/16 07:49 MCHC 32 % (30-34) 12/13/16 07:49 RDW 15.5 % (13.2-15.2) H 12/13/16 07:49 Plt Count 120 K/mm3 (140-440) L 12/13/16 07:49 Add Manual Diff Complete 12/13/16 07:49 Total Counted 100 12/13/16 07:49 Seg Neuts % (Manual) 89.0 % (40.0-70.0) H 12/13/16 07:49 Band Neutrophils % 1.0 % 12/13/16 07:49 Lymphocytes % (Manual) 7.0 % (13.4-35.0) L 12/13/16 07:49 Reactive Lymphs % (Man) 0 % 12/13/16 07:49 Monocytes % (Manual) 3.0 % (0.0-7.3) 12/13/16 07:49 Eosinophils % (Manual) 0 % (0.0-4.3) 12/13/16 07:49 Basophils % (Manual) 0 % (0.0-1.8) 12/13/16 07:49 Metamyelocytes % 0 % 12/13/16 07:49 Myelocytes % 0 % 12/13/16 07:49 Promyelocytes % 0 % 12/13/16 07:49 Blast Cells % 0 % 12/13/16 07:49 Nucleated RBC % Not Reportable 12/13/16 07:49 Seg Neutrophils # Man 21.4 K/mm3 (1.8-7.7) H 12/13/16 07:49 Band Neutrophils # 0.2 K/mm3 12/13/16 07:49 Lymphocytes # (Manual) 1.7 K/mm3 (1.2-5.4) 12/13/16 07:49 Abs React Lymphs (Man) 0.0 K/mm3 12/13/16 07:49 Monocytes # (Manual) 0.7 K/mm3 (0.0-0.8) 12/13/16 07:49 Eosinophils # (Manual) 0.0 K/mm3 (0.0-0.4) 12/13/16 07:49 Basophils # (Manual) 0.0 K/mm3 (0.0-0.1) 12/13/16 07:49 Metamyelocytes # 0.0 K/mm3 12/13/16 07:49 Myelocytes # 0.0 K/mm3 12/13/16 07:49 Promyelocytes # 0.0 K/mm3 12/13/16 07:49 Blast Cells # 0.0 K/mm3 12/13/16 07:49 WBC Morphology Not Reportable 12/13/16 07:49 Hypersegmented Neuts Not Reportable 12/13/16 07:49 Hyposegmented Neuts Not Reportable 12/13/16 07:49 Hypogranular Neuts Not Reportable 12/13/16 07:49 Smudge Cells Not Reportable 12/13/16 07:49 Toxic Granulation Not Reportable 12/13/16 07:49 Toxic Vacuolation Not Reportable 12/13/16 07:49 Dohle Bodies Not Reportable 12/13/16 07:49 Pelger-Huet Anomaly Not Reportable 12/13/16 07:49 Mary Rods Not Reportable 12/13/16 07:49 Platelet Estimate Cons 12/13/16 07:49 Clumped Platelets Not Reportable 12/13/16 07:49 Plt Clumps, EDTA Not Reportable 12/13/16 07:49 Large Platelets Rare 12/13/16 07:49 Giant Platelets Not Reportable 12/13/16 07:49 Platelet Satelliting Not Reportable 12/13/16 07:49 Plt Morphology Comment Not Reportable 12/13/16 07:49 RBC Morphology Not Reportable 12/13/16 07:49 Dimorphic RBCs Not Reportable 12/13/16 07:49 Polychromasia Not Reportable 12/13/16 07:49 Hypochromasia 1+ 12/13/16 07:49 Poikilocytosis Not Reportable 12/13/16 07:49 Anisocytosis 1+ 12/13/16 07:49 Microcytosis Not Reportable 12/13/16 07:49 Macrocytosis Not Reportable 12/13/16 07:49 Spherocytes Not Reportable 12/13/16 07:49 Pappenheimer Bodies Not Reportable 12/13/16 07:49 Sickle Cells Not Reportable 12/13/16 07:49 Target Cells Few 12/13/16 07:49 Tear Drop Cells Not Reportable 12/13/16 07:49 Ovalocytes Not Reportable 12/13/16 07:49 Helmet Cells Not Reportable 12/13/16 07:49 Landers-Hackett Bodies Not Reportable 12/13/16 07:49 [place] Rings Not Reportable 12/13/16 07:49 [place] Cells Not Reportable 12/13/16 07:49 Bite Cells Not Reportable 12/13/16 07:49 Crenated Cell Not Reportable 12/13/16 07:49 Elliptocytes Not Reportable 12/13/16 07:49 Acanthocytes (Spur) Not Reportable 12/13/16 07:49 Rouleaux Not Reportable 12/13/16 07:49 Hemoglobin C Crystals Not Reportable 12/13/16 07:49 Schistocytes Not Reportable 12/13/16 07:49 Malaria parasites Not Reportable 12/13/16 07:49 Percent Retic 0.23 % (0.78-2.58) L 12/09/16 11:29 Michael Bodies Not Reportable 12/13/16 07:49 Haptoglobin 271 mg/dL (43-212) H 12/08/16 21:30 Hem Pathologist Commnt No 12/13/16 07:49 PT 15.3 Sec. (12.2-14.9) H 12/08/16 19:00 INR 1.22 (0.87-1.13) H 12/08/16 19:00 APTT 36.2 Sec. (24.2-36.6) 12/08/16 19:00 Fibrinogen 563 mg/dl (211-480) H 12/08/16 19:00 D-Dimer 5507.36 ng/mlDDU (0-234) H 12/08/16 19:00 Heparin Anti-Xa, Unfract Negative (Negative) 12/09/16 13:27 POC ABG pH 7.326 (7.35-7.45) L 12/09/16 12:02 POC ABG pCO2 37.7 (35-45) 12/09/16 12:02 POC ABG pO2 115 (80-105) H 12/09/16 12:02 POC ABG HCO3 19.7 12/09/16 12:02 POC ABG Total CO2 21 12/09/16 12:02 POC ABG O2 Sat 98 12/09/16 12:02 POC ABG Base Excess -6 12/09/16 12:02 FiO2 30 % 12/09/16 12:02 Sodium 144 mmol/L (137-145) 12/13/16 07:49 Potassium 3.2 mmol/L (3.6-5.0) L 12/13/16 07:49 Chloride 103.8 mmol/L (98-107) 12/13/16 07:49 Carbon Dioxide 25 mmol/L (22-30) D 12/13/16 07:49 Anion Gap 18 mmol/L 12/13/16 07:49 BUN 21 mg/dL (7-17) H 12/13/16 07:49 Creatinine 3.0 mg/dL (0.7-1.2) H 12/13/16 07:49 Estimated GFR 20 ml/min 12/13/16 07:49 BUN/Creatinine Ratio 7.00 % 12/13/16 07:49 Glucose 21 mg/dL (65-100) L* 12/13/16 07:49 POC Glucose 231 (70-105) H 12/13/16 11:02 Lactic Acid 6.90 mmol/L (0.7-2.0) H* 12/07/16 07:30 Calcium 8.8 mg/dL (8.4-10.2) 12/13/16 07:49 Phosphorus 2.60 mg/dL (2.5-4.5) 12/13/16 07:49 Magnesium 1.90 mg/dL (1.7-2.3) 12/11/16 04:30 Iron 15 ug/dL (37-170) L 12/09/16 13:27 TIBC 134 mcg/dL (250-450) L 12/09/16 13:27 Ferritin 360.1 ng/mL (13.0-400.0) 12/09/16 13:27 Total Bilirubin 1.40 mg/dL (0.1-1.2) H 12/07/16 21:35 Direct Bilirubin 0.9 mg/dL (0-0.2) H 12/07/16 21:35 Indirect Bilirubin 0.5 mg/dL 12/07/16 21:35 AST 94 units/L (5-40) H 12/07/16 21:35 ALT 142 units/L (7-56) H 12/07/16 21:35 Alkaline Phosphatase 249 units/L (35-129) H 12/07/16 21:35 Lactate Dehydrogenase 382 units/L (91-180) H 12/08/16 19:00 Total Creatine Kinase 123 units/L (30-135) 12/04/16 09:55 CK-MB (CK-2) 4.6 ng/mL (0.0-4.0) H 12/04/16 09:55 CK-MB (CK-2) Rel Index 3.7 (0-4) 12/04/16 09:55 Troponin T 0.140 ng/mL (0.00-0.029) H* D 12/04/16 09:55 C-Reactive Protein 39.40 mg/dL (0.00-1.30) H 12/07/16 06:00 Total Protein 4.6 g/dL (6.3-8.2) L D 12/07/16 21:35 Albumin 2.1 g/dL (3.9-5) L 12/07/16 21:35 Albumin/Globulin Ratio 0.8 % 12/07/16 21:35 Triglycerides 570 mg/dL (2-149) H 12/04/16 07:55 Cholesterol 221 mg/dL (50-199) H 12/04/16 07:55 LDL Cholesterol Direct TNR 12/04/16 07:55 HDL Cholesterol 37 mg/dL (40-59) L 12/04/16 07:55 Cholesterol/HDL Ratio 5.97 % 12/04/16 07:55 Vitamin B12 > 2000 pg/mL (211-911) H 12/09/16 13:27 Folate 8.10 ng/mL (7.3-26.0) 12/09/16 13:27 TSH 1.600 mlU/mL (0.270-4.200) 12/03/16 23:20 Urine Color Yellow (Yellow) 12/04/16 11:25 Urine Turbidity Slightly-cloudy (Clear) 12/04/16 11:25 Urine pH 5.0 (5.0-7.0) 12/04/16 11:25 Ur Specific [place] 1.018 (1.003-1.030) 12/04/16 11:25 Urine Protein 30 mg/dl mg/dL (Negative) 12/04/16 11:25 Urine Glucose (UA) >=500 mg/dL (Negative) 12/04/16 11:25 Urine Ketones Tr mg/dL (Negative) 12/04/16 11:25 Urine Blood Sm (Negative) 12/04/16 11:25 Urine Nitrite Neg (Negative) 12/04/16 11:25 Urine Bilirubin Neg (Negative) 12/04/16 11:25 Urine Urobilinogen < 2.0 mg/dL (<2.0) 12/04/16 11:25 Ur Leukocyte Esterase Neg (Negative) 12/04/16 11:25 Urine WBC (Auto) 4.0 /HPF (0.0-6.0) 12/04/16 11:25 Urine RBC (Auto) 2.0 /HPF (0.0-6.0) 12/04/16 11:25 U Epithel Cells (Auto) < 1.0 /HPF (0-13.0) 12/04/16 11:25 Urine Mucus Few /HPF 12/04/16 11:25 Urine Osmolality 419 Mosm/kg 12/04/16 11:25 Urine Creatinine 29.5 mg/dL (0.1-20.0) H 12/04/16 11:25 Protein/Creatinin Ratio 1.12 12/04/16 11:25 Urine Sodium 26 mEq/L 12/04/16 11:25 Urine Total Protein 33 mg/dL (5-11.8) H 12/04/16 11:25 Urine Opiates Screen Presumptive negative 12/04/16 11:25 Urine Methadone Screen Presumptive negative 12/04/16 11:25 Ur Barbiturates Screen Presumptive negative 12/04/16 11:25 Ur Phencyclidine Scrn Presumptive negative 12/04/16 11:25 Ur Amphetamines Screen Presumptive negative 12/04/16 11:25 U Benzodiazepines Scrn Presumptive negative 12/04/16 11:25 Urine Cocaine Screen Presumptive negative 12/04/16 11:25 U Marijuana (THC) Screen Presumptive positive 12/04/16 11:25 Drugs of Abuse Note Disclamer 12/04/16 11:25 Heparin-induced Plt Ab Weak positive (Negative) H 12/09/16 13:27 UF Heparin High Dose 0 % Release 12/09/16 13:27 ADRIENNE UFH Low Dose 0.1 0 % Release 12/09/16 13:27 ADRIENNE UFH Low Dose 0.5 0 % Release 12/09/16 13:27 Hep Bs Antigen Non-reactive (Negative) 12/09/16 13:27 Hep Bs Antibody, Quant <5 mIU/mL (>=10) L 12/09/16 13:27 Hep B Core Total Ab Nonreactive (Nonreactive) 12/09/16 13:27 Hepatitis C Antibody Non-reactive (NonReactive) 12/09/16 13:27 HIV 1&2 Antibody Rapid Non react (Non React) 12/09/16 13:27 HIV P24 Antigen Non react (Non React) 12/09/16 13:27 Schistocytes Smear None seen 12/09/16 11:29 Blood Type O POSITIVE 12/08/16 08:46 Antibody Screen TNR 12/08/16 08:46 ISAIAH Antibody Screen Negative 12/08/16 08:46 Crossmatch See Detail 12/08/16 08:46
--- NOTE | 2016-12-13 12:56 | Progress Note ---
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 band edger insulin use: D Qualified Code(s): E10.10 - Type 1 diabetes mellitus with ketoacidosis without coma Plan to address problem: insulin regimen per primary team (2) Acute hypernatremia Current Visit: No Status: Acute Plan to address problem: encouraged to drink water (3) Acute kidney failure with tubular necrosis Current Visit: No Status: Acute Plan to address problem: secondary to ischemic ATN from shock no signs of recovery, remains oliguric will request vascath removal, if no signs of recovery in the next 48 hours will order permcath placement strict I&O daily weight renal diet (4) Leukocytosis Current Visit: Yes Status: Acute Qualifiers: Leukocytosis type: L Plan to address problem: followed by ID vascatho cultures are NTD Subjective Date of service: 12/13/16 Principal diagnosis: Severe Sepsis; DKA, cardiac arrest Interval history: tolerated HD well yesterday, was given IV glucose this AM for low blood sugar, she felt mildly weak when seen this AM Objective - Vital Signs Vital signs: Vital Signs - 12hr 12/13/16 12/13/16 12/13/16 05:00 07:57 08:25 Temperature 97.6 F 98.0 F Pulse Rate [ 102 H Anterior Bilateral Throughout] Pulse Rate [ 121 H From Monitor] Pulse Rate [ 121 H Left Dorsalis Pedis] Pulse Rate [ 121 H Left Radial] Pulse Rate [ 121 H Right Dorsalis Pedis] Pulse Rate [ 121 H 98 H Right Radial] Respiratory 18 18 Rate Respiratory 20 Rate [Anterior Bilateral Throughout] Blood Pressure 128/68 147/84 [Left Arm] O2 Sat by Pulse 97 100 Oximetry 12/13/16 08:57 Temperature Pulse Rate [ 95 H Anterior Bilateral Throughout] Pulse Rate [ From Monitor] Pulse Rate [ Left Dorsalis Pedis] Pulse Rate [ Left Radial] Pulse Rate [ Right Dorsalis Pedis] Pulse Rate [ Right Radial] Respiratory Rate Respiratory 16 Rate [Anterior Bilateral Throughout] Blood Pressure [Left Arm] O2 Sat by Pulse Oximetry - General Appearance General appearance: well-developed, well-nourished EENT: ATNC, PERRL, mucous membranes dry Neck: no JVD, no carotid bruit Respiratory: Present: Clear to Ascultation Cardiology: regular, S1S2 Gastrointestinal: normoactive bowel sounds Integumentary: no rash, warm and dry Neurologic: no focal deficit, no asterixis, alert and oriented x3 - Lab 12/13/16 07:49 12/13/16 07:49 Most recent lab results Calcium 8.8 mg/dL (8.4-10.2) 12/13/16 07:49 Phosphorus 2.60 mg/dL (2.5-4.5) 12/13/16 07:49 Magnesium 1.90 mg/dL (1.7-2.3) 12/11/16 04:30 Urine Creatinine 29.5 mg/dL (0.1-20.0) H 12/04/16 11:25 Urine Sodium 26 mEq/L 12/04/16 11:25 Urine Total Protein 33 mg/dL (5-11.8) H 12/04/16 11:25
--- NOTE | 2016-12-13 13:07 | Progress Note ---
Assessment and Plan Cardiac arrest PEA arrest-->V. fib/?torsades-->shocked twice, received amiodarone 300 mg--> likely due to hyperkalemia (9.6 on presentation) Echo 11/2016: EF 40-45%, repeat echo EF 40-45% Abnormal EKG/ST elevation Given pt.'s condition, resolution of ST elevation and recent subarachnoid bleed pt. not a candidate for cardiac cath Hypotension resolved Nstemi type 2 Cardiomyopathy EF 40-45% consider beta zoila if BP can tolerate no ACEI/ARB due to CKD DKA Hyperkalemia Acute on chronic renal failure Anemia Recent subarachnoid hemorrhage Altered mental status Cardiac status is not significantly changed. Continue current management. Renal note noted. Chest x-ray done today shows persistent pneumonia. Patient has blood-tinged sputum. Discussed with Dr. ortega in the he will follow. Subjective Date of service: 12/13/16 Principal diagnosis: Severe Sepsis; DKA, cardiac arrest Interval history: Patient is complaining about cough and blood-tinged sputum. No chest pain and significant difficulty in breathing. Patient is apparently not eating well Objective Vital Signs Temp Pulse Pulse Pulse Pulse Pulse Pulse 12/13/16 08:57 95 H 12/13/16 08:25 98.0 F 12/13/16 07:57 102 H 12/13/16 05:00 97.6 F 121 H 121 H 121 H 121 H 12/13/16 00:26 98.2 F 114 H 114 H 114 H 114 H 12/12/16 23:11 118 H 12/12/16 20:16 98.2 F 115 H 115 H 115 H 115 H 12/12/16 17:39 98.6 F 117 H 117 H 117 H 117 H 12/12/16 15:15 98.2 F 62 12/12/16 15:00 125 H 12/12/16 14:45 112 H 12/12/16 14:30 112 H 12/12/16 14:15 111 H 12/12/16 14:14 98.7 F 109 H 109 H 109 H 109 H 12/12/16 14:00 111 H 12/12/16 13:45 109 H 12/12/16 13:30 112 H 12/12/16 13:15 121 H Pulse Resp Resp BP BP Pulse Ox 12/13/16 08:57 16 12/13/16 08:25 98 H 18 147/84 100 12/13/16 07:57 20 12/13/16 05:00 121 H 18 128/68 97 12/13/16 00:26 114 H 18 150/87 94 12/12/16 23:11 12/12/16 20:16 115 H 20 132/83 97 12/12/16 17:39 117 H 18 131/74 99 12/12/16 15:15 20 113/62 12/12/16 15:00 108/70 12/12/16 14:45 117/69 12/12/16 14:30 134/71 12/12/16 14:15 125/70 12/12/16 14:14 109 H 18 123/72 95 12/12/16 14:00 129/72 12/12/16 13:45 128/75 12/12/16 13:30 128/77 12/12/16 13:15 122/82 - Physical Examination General: No Apparent Distress HEENT: Positive: Normocephaly Neck: Positive: neck supple, trachea midline Cardiac: Positive: Reg Rate and Rhythm Lungs: Positive: Decreased Breath Sounds (in the right base.) Neuro: Positive: Grossly Intact Abdomen: Positive: Soft Skin: Negative: Rash Extremities: Present: normal. Absent: edema - Labs and Meds CBC 12/13/16 Range/Units 07:49 WBC 24.0 H (4.5-11.0) K/mm3 RBC 2.90 L (3.65-5.03) M/mm3 Hgb 8.3 L (10.1-14.3) gm/dl Hct 25.8 L (30.3-42.9) % Plt Count 120 L (140-440) K/mm3 Comprehensive Metabolic Panel 12/13/16 Range/Units 07:49 Sodium 144 (137-145) mmol/L Potassium 3.2 L (3.6-5.0) mmol/L Chloride 103.8 (98-107) mmol/L Carbon Dioxide 25 D (22-30) mmol/L BUN 21 H (7-17) mg/dL Creatinine 3.0 H (0.7-1.2) mg/dL Glucose 21 L* (65-100) mg/dL Calcium 8.8 (8.4-10.2) mg/dL - Imaging and Cardiology Echo: report reviewed (11/2016: EF 40-45% repeat echo EF 40-45%)
--- NOTE | 2016-12-13 15:56 | Progress Note ---
Assessment and Plan Patient alert, awake.. No acute respiratory distress.No complaint of chest pain or shortness of breath..Patient is on 3 litres O2 and O2 saturation 96%. - Patient Problems (1) DKA (diabetic ketoacidoses) Current Visit: Yes Status: Acute Qualifiers: Diabetes mellitus type: type 1 Diabetes mellitus complication detail: without coma Diabetes mellitus roasterman insulin use: D Qualified Code(s): E10.10 - Type 1 diabetes mellitus with ketoacidosis without coma Plan to address problem: Patient is on S/C insulin. Patient alert, awake. Clinicaly appears improving. Management as per primary care. (2) Metabolic encephalopathy Current Visit: Yes Status: Acute Plan to address problem: Patient alert, awake, following commands. Appears encephalopathy improving. Management as per primary care. (3) Pulmonary infiltrate in right lung on chest x-ray Current Visit: Yes Status: Acute Plan to address problem: Patient is on I/V flagyl. Starting on I/V Levaquine. Patient afebrile. Still has leukocytosis. Repeating chest xray. Subjective Date of service: 12/13/16 Principal diagnosis: Severe Sepsis; DKA, cardiac arrest Interval history: Patient alert, awake, weak. No acute respiratory distress. No complaint of chest pain or shortness of breath. Slight cough and hoarseness of voice.O2 saturation 96% on room air. Objective Vital Signs - 12hr 12/13/16 12/13/16 12/13/16 05:00 07:57 08:25 Temperature 97.6 F 98.0 F Pulse Rate [ 102 H Anterior Bilateral Throughout] Pulse Rate [ 121 H From Monitor] Pulse Rate [ 121 H Left Dorsalis Pedis] Pulse Rate [ 121 H Left Radial] Pulse Rate [ 121 H Right Dorsalis Pedis] Pulse Rate [ 121 H 98 H Right Radial] Respiratory 18 18 Rate Respiratory 20 Rate [Anterior Bilateral Throughout] Blood Pressure 128/68 147/84 [Left Arm] Blood Pressure [Right Arm] O2 Sat by Pulse 97 100 Oximetry 12/13/16 12/13/16 08:57 11:15 Temperature 98.6 F Pulse Rate [ 95 H Anterior Bilateral Throughout] Pulse Rate [ From Monitor] Pulse Rate [ Left Dorsalis Pedis] Pulse Rate [ Left Radial] Pulse Rate [ Right Dorsalis Pedis] Pulse Rate [ 110 H Right Radial] Respiratory 20 Rate Respiratory 16 Rate [Anterior Bilateral Throughout] Blood Pressure [Left Arm] Blood Pressure 179/100 [Right Arm] O2 Sat by Pulse 96 Oximetry Constitutional: no acute distress, alert Eyes: non-icteric ENT: oropharynx moist Neck: supple, no lymphadenopathy Effort: mildly labored Ascultation: Bilateral: diminished breath sounds, rales (R>L lungs), rhonchi ( On right side.) Cardiovascular: regular rate and rhythm, other (SVT) Gastrointestinal: normoactive bowel sounds, soft, non-tender, non-distended Integumentary: normal Extremities: no cyanosis, no edema, pulses normal, no ischemia or petechiae Neurologic: normal mental status, non-focal exam, pupils equal and round, motor strength normal and Psychiatric: mood appropriate, affect normal CBC and BMP: 12/13/16 07:49 12/13/16 07:49 ABG, PT/INR, D-dimer: ABG POC ABG pH 7.326 (7.35-7.45) L 12/09/16 12:02 POC ABG pCO2 37.7 (35-45) 12/09/16 12:02 POC ABG pO2 115 (80-105) H 12/09/16 12:02 POC ABG HCO3 19.7 12/09/16 12:02 POC ABG Total CO2 21 12/09/16 12:02 POC ABG O2 Sat 98 12/09/16 12:02 PT/INR, D-dimer PT 15.3 Sec. (12.2-14.9) H 12/08/16 19:00 INR 1.22 (0.87-1.13) H 12/08/16 19:00 D-Dimer 5507.36 ng/mlDDU (0-234) H 12/08/16 19:00 Abnormal lab findings: Abnormal Labs 12/04/16 12/04/16 12/04/16 01:19 01:36 02:21 WBC RBC Hgb Hct MCV MCHC RDW Plt Count Seg Neuts % (Manual) Lymphocytes % (Manual) Monocytes % (Manual) Nucleated RBC % Seg Neutrophils # Man Lymphocytes # (Manual) Monocytes # (Manual) Percent Retic Haptoglobin PT INR Fibrinogen D-Dimer POC ABG pH 6.759 L POC ABG pCO2 POC ABG pO2 437 H Sodium Potassium Chloride Carbon Dioxide BUN Creatinine Glucose POC Glucose > 500 H Lactic Acid Calcium Phosphorus 15.70 H Magnesium 4.30 H Iron TIBC Total Bilirubin Direct Bilirubin AST ALT Alkaline Phosphatase Lactate Dehydrogenase CK-MB (CK-2) Troponin T C-Reactive Protein Total Protein Albumin Triglycerides Cholesterol HDL Cholesterol Vitamin B12 Urine Creatinine Urine Total Protein Heparin-induced Plt Ab Hep Bs Antibody, Quant Crossmatch 12/04/16 12/04/16 12/04/16 03:55 04:00 05:11 WBC RBC Hgb Hct MCV MCHC RDW Plt Count Seg Neuts % (Manual) Lymphocytes % (Manual) Monocytes % (Manual) Nucleated RBC % Seg Neutrophils # Man Lymphocytes # (Manual) Monocytes # (Manual) Percent Retic Haptoglobin PT INR Fibrinogen D-Dimer POC ABG pH POC ABG pCO2 POC ABG pO2 Sodium Potassium Chloride 91.4 L Carbon Dioxide 8 L* BUN 55 H Creatinine 2.8 H Glucose 1610 H* POC Glucose > 500 H > 500 H Lactic Acid Calcium Phosphorus Magnesium Iron TIBC Total Bilirubin Direct Bilirubin AST ALT Alkaline Phosphatase Lactate Dehydrogenase CK-MB (CK-2) Troponin T C-Reactive Protein Total Protein Albumin Triglycerides Cholesterol HDL Cholesterol Vitamin B12 Urine Creatinine Urine Total Protein Heparin-induced Plt Ab Hep Bs Antibody, Quant Crossmatch 12/04/16 12/04/16 12/04/16 05:40 05:54 06:58 WBC RBC Hgb Hct MCV MCHC RDW Plt Count Seg Neuts % (Manual) Lymphocytes % (Manual) Monocytes % (Manual) Nucleated RBC % Seg Neutrophils # Man Lymphocytes # (Manual) Monocytes # (Manual) Percent Retic Haptoglobin PT INR Fibrinogen D-Dimer POC ABG pH 7.154 L POC ABG pCO2 27.5 L POC ABG pO2 111 H Sodium Potassium Chloride Carbon Dioxide BUN Creatinine Glucose POC Glucose > 500 H > 500 H Lactic Acid Calcium Phosphorus Magnesium Iron TIBC Total Bilirubin Direct Bilirubin AST ALT Alkaline Phosphatase Lactate Dehydrogenase CK-MB (CK-2) Troponin T C-Reactive Protein Total Protein Albumin Triglycerides Cholesterol HDL Cholesterol Vitamin B12 Urine Creatinine Urine Total Protein Heparin-induced Plt Ab Hep Bs Antibody, Quant Crossmatch 12/04/16 12/04/16 12/04/16 07:49 07:55 07:55 WBC RBC Hgb Hct MCV MCHC RDW Plt Count Seg Neuts % (Manual) Lymphocytes % (Manual) Monocytes % (Manual) Nucleated RBC % Seg Neutrophils # Man Lymphocytes # (Manual) Monocytes # (Manual) Percent Retic Haptoglobin PT INR Fibrinogen D-Dimer POC ABG pH POC ABG pCO2 POC ABG pO2 Sodium Potassium 3.3 L Chloride Carbon Dioxide 9 L* BUN 53 H Creatinine 2.9 H Glucose 1229 H* POC Glucose > 500 H Lactic Acid Calcium Phosphorus Magnesium Iron TIBC Total Bilirubin Direct Bilirubin AST ALT Alkaline Phosphatase Lactate Dehydrogenase CK-MB (CK-2) Troponin T 0.111 H* D C-Reactive Protein Total Protein Albumin Triglycerides 570 H Cholesterol 221 H HDL Cholesterol 37 L Vitamin B12 Urine Creatinine Urine Total Protein Heparin-induced Plt Ab Hep Bs Antibody, Quant Crossmatch 12/04/16 12/04/16 12/04/16 07:55 09:55 09:55 WBC RBC 2.90 L Hgb 8.5 L Hct 30.2 L D MCV 105 H D MCHC 28 L RDW 19.2 H Plt Count Seg Neuts % (Manual) Lymphocytes % (Manual) 11.0 L Monocytes % (Manual) Nucleated RBC % Seg Neutrophils # Man Lymphocytes # (Manual) 0.6 L Monocytes # (Manual) Percent Retic Haptoglobin PT INR Fibrinogen D-Dimer POC ABG pH POC ABG pCO2 POC ABG pO2 Sodium Potassium 3.1 L Chloride Carbon Dioxide 7 L* BUN 51 H Creatinine 3.2 H Glucose 969 H* POC Glucose Lactic Acid Calcium 10.4 H D Phosphorus Magnesium Iron TIBC Total Bilirubin Direct Bilirubin AST ALT Alkaline Phosphatase Lactate Dehydrogenase CK-MB (CK-2) 4.6 H Troponin T 0.140 H* D C-Reactive Protein Total Protein Albumin Triglycerides Cholesterol HDL Cholesterol Vitamin B12 Urine Creatinine Urine Total Protein Heparin-induced Plt Ab Hep Bs Antibody, Quant Crossmatch 12/04/16 12/04/16 12/04/16 09:55 10:37 11:25 WBC RBC Hgb Hct MCV MCHC RDW Plt Count Seg Neuts % (Manual) Lymphocytes % (Manual) Monocytes % (Manual) Nucleated RBC % Seg Neutrophils # Man Lymphocytes # (Manual) Monocytes # (Manual) Percent Retic Haptoglobin PT INR Fibrinogen D-Dimer POC ABG pH 7.215 L POC ABG pCO2 18.8 L POC ABG pO2 193 H Sodium Potassium Chloride Carbon Dioxide BUN Creatinine Glucose POC Glucose Lactic Acid Calcium Phosphorus Magnesium 3.70 H Iron TIBC Total Bilirubin Direct Bilirubin AST ALT Alkaline Phosphatase Lactate Dehydrogenase CK-MB (CK-2) Troponin T C-Reactive Protein Total Protein Albumin Triglycerides Cholesterol HDL Cholesterol Vitamin B12 Urine Creatinine 29.5 H Urine Total Protein 33 H Heparin-induced Plt Ab Hep Bs Antibody, Quant Crossmatch 12/04/16 12/04/16 12/04/16 12:00 12:48 13:00 WBC RBC Hgb Hct MCV MCHC RDW Plt Count Seg Neuts % (Manual) Lymphocytes % (Manual) Monocytes % (Manual) Nucleated RBC % Seg Neutrophils # Man Lymphocytes # (Manual) Monocytes # (Manual) Percent Retic Haptoglobin PT INR Fibrinogen D-Dimer POC ABG pH POC ABG pCO2 POC ABG pO2 Sodium 149 H 150 H Potassium 3.2 L 3.2 L Chloride 109.1 H Carbon Dioxide 8 L* 8 L* BUN 52 H 49 H Creatinine 3.4 H 3.1 H Glucose 723 H* 574 H* POC Glucose Lactic Acid 18.80 H* Calcium Phosphorus Magnesium Iron TIBC Total Bilirubin Direct Bilirubin AST ALT Alkaline Phosphatase Lactate Dehydrogenase CK-MB (CK-2) Troponin T C-Reactive Protein Total Protein Albumin Triglycerides Cholesterol HDL Cholesterol Vitamin B12 Urine Creatinine Urine Total Protein Heparin-induced Plt Ab Hep Bs Antibody, Quant Crossmatch 12/04/16 12/04/16 12/04/16 13:01 14:41 16:06 WBC RBC Hgb Hct MCV MCHC RDW Plt Count Seg Neuts % (Manual) Lymphocytes % (Manual) Monocytes % (Manual) Nucleated RBC % Seg Neutrophils # Man Lymphocytes # (Manual) Monocytes # (Manual) Percent Retic Haptoglobin PT INR Fibrinogen D-Dimer POC ABG pH POC ABG pCO2 POC ABG pO2 Sodium 151 H Potassium 3.2 L Chloride 108.1 H Carbon Dioxide 10 L BUN 49 H Creatinine 3.0 H Glucose 383 H POC Glucose 292 H Lactic Acid Calcium Phosphorus Magnesium Iron TIBC Total Bilirubin Direct Bilirubin AST ALT Alkaline Phosphatase Lactate Dehydrogenase CK-MB (CK-2) Troponin T C-Reactive Protein 3.50 H Total Protein Albumin Triglycerides Cholesterol HDL Cholesterol Vitamin B12 Urine Creatinine Urine Total Protein Heparin-induced Plt Ab Hep Bs Antibody, Quant Crossmatch 12/04/16 12/04/16 12/04/16 17:15 17:25 18:07 WBC RBC Hgb Hct MCV MCHC RDW Plt Count Seg Neuts % (Manual) Lymphocytes % (Manual) Monocytes % (Manual) Nucleated RBC % Seg Neutrophils # Man Lymphocytes # (Manual) Monocytes # (Manual) Percent Retic Haptoglobin PT INR Fibrinogen D-Dimer POC ABG pH 7.255 L POC ABG pCO2 16.9 L POC ABG pO2 169 H Sodium Potassium Chloride Carbon Dioxide BUN Creatinine Glucose POC Glucose 246 H Lactic Acid 18.50 H* Calcium Phosphorus Magnesium Iron TIBC Total Bilirubin Direct Bilirubin AST ALT Alkaline Phosphatase Lactate Dehydrogenase CK-MB (CK-2) Troponin T C-Reactive Protein Total Protein Albumin Triglycerides Cholesterol HDL Cholesterol Vitamin B12 Urine Creatinine Urine Total Protein Heparin-induced Plt Ab Hep Bs Antibody, Quant Crossmatch 12/04/16 12/04/16 12/04/16 19:34 20:31 21:15 WBC RBC Hgb Hct MCV MCHC RDW Plt Count Seg Neuts % (Manual) Lymphocytes % (Manual) Monocytes % (Manual) Nucleated RBC % Seg Neutrophils # Man Lymphocytes # (Manual) Monocytes # (Manual) Percent Retic Haptoglobin PT INR Fibrinogen D-Dimer POC ABG pH POC ABG pCO2 POC ABG pO2 Sodium Potassium Chloride Carbon Dioxide BUN Creatinine Glucose POC Glucose 189 H 126 H 139 H Lactic Acid Calcium Phosphorus Magnesium Iron TIBC Total Bilirubin Direct Bilirubin AST ALT Alkaline Phosphatase Lactate Dehydrogenase CK-MB (CK-2) Troponin T C-Reactive Protein Total Protein Albumin Triglycerides Cholesterol HDL Cholesterol Vitamin B12 Urine Creatinine Urine Total Protein Heparin-induced Plt Ab Hep Bs Antibody, Quant Crossmatch 12/04/16 12/04/16 12/04/16 21:25 22:37 23:35 WBC RBC Hgb Hct MCV MCHC RDW Plt Count Seg Neuts % (Manual) Lymphocytes % (Manual) Monocytes % (Manual) Nucleated RBC % Seg Neutrophils # Man Lymphocytes # (Manual) Monocytes # (Manual) Percent Retic Haptoglobin PT INR Fibrinogen D-Dimer POC ABG pH 7.294 L POC ABG pCO2 16.7 L POC ABG pO2 169 H Sodium Potassium Chloride Carbon Dioxide BUN Creatinine Glucose POC Glucose 131 H 106 H Lactic Acid Calcium Phosphorus Magnesium Iron TIBC Total Bilirubin Direct Bilirubin AST ALT Alkaline Phosphatase Lactate Dehydrogenase CK-MB (CK-2) Troponin T C-Reactive Protein Total Protein Albumin Triglycerides Cholesterol HDL Cholesterol Vitamin B12 Urine Creatinine Urine Total Protein Heparin-induced Plt Ab Hep Bs Antibody, Quant Crossmatch 12/05/16 12/05/16 12/05/16 02:40 02:50 02:50 WBC RBC Hgb Hct MCV MCHC RDW Plt Count Seg Neuts % (Manual) Lymphocytes % (Manual) Monocytes % (Manual) Nucleated RBC % Seg Neutrophils # Man Lymphocytes # (Manual) Monocytes # (Manual) Percent Retic Haptoglobin PT INR Fibrinogen D-Dimer POC ABG pH POC ABG pCO2 POC ABG pO2 Sodium 151 H Potassium Chloride 113.8 H Carbon Dioxide 12 L BUN 46 H Creatinine 3.2 H Glucose 165 H POC Glucose 109 H Lactic Acid 9.80 H* Calcium 8.3 L Phosphorus Magnesium Iron TIBC Total Bilirubin Direct Bilirubin AST ALT Alkaline Phosphatase Lactate Dehydrogenase CK-MB (CK-2) Troponin T C-Reactive Protein Total Protein Albumin Triglycerides Cholesterol HDL Cholesterol Vitamin B12 Urine Creatinine Urine Total Protein Heparin-induced Plt Ab Hep Bs Antibody, Quant Crossmatch 12/05/16 12/05/16 12/05/16 04:01 04:30 04:30 WBC 19.1 H RBC 2.91 L Hgb 8.0 L Hct 25.4 L MCV MCHC RDW 17.8 H Plt Count Seg Neuts % (Manual) 17.0 L Lymphocytes % (Manual) 7.0 L Monocytes % (Manual) Nucleated RBC % 3.0 H Seg Neutrophils # Man Lymphocytes # (Manual) Monocytes # (Manual) Percent Retic Haptoglobin PT INR Fibrinogen D-Dimer POC ABG pH POC ABG pCO2 POC ABG pO2 Sodium 152 H Potassium Chloride 113.5 H Carbon Dioxide 12 L BUN 47 H Creatinine 3.2 H Glucose 133 H POC Glucose 179 H Lactic Acid Calcium 8.3 L Phosphorus 1.00 L D Magnesium Iron TIBC Total Bilirubin Direct Bilirubin AST ALT Alkaline Phosphatase Lactate Dehydrogenase CK-MB (CK-2) Troponin T C-Reactive Protein Total Protein Albumin Triglycerides Cholesterol HDL Cholesterol Vitamin B12 Urine Creatinine Urine Total Protein Heparin-induced Plt Ab Hep Bs Antibody, Quant Crossmatch 12/05/16 12/05/16 12/05/16 05:32 08:01 08:48 WBC RBC Hgb Hct MCV MCHC RDW Plt Count Seg Neuts % (Manual) Lymphocytes % (Manual) Monocytes % (Manual) Nucleated RBC % Seg Neutrophils # Man Lymphocytes # (Manual) Monocytes # (Manual) Percent Retic Haptoglobin PT INR Fibrinogen D-Dimer POC ABG pH POC ABG pCO2 17.6 L POC ABG pO2 62 L Sodium Potassium Chloride Carbon Dioxide BUN Creatinine Glucose POC Glucose 126 H 130 H Lactic Acid Calcium Phosphorus Magnesium Iron TIBC Total Bilirubin Direct Bilirubin AST ALT Alkaline Phosphatase Lactate Dehydrogenase CK-MB (CK-2) Troponin T C-Reactive Protein Total Protein Albumin Triglycerides Cholesterol HDL Cholesterol Vitamin B12 Urine Creatinine Urine Total Protein Heparin-induced Plt Ab Hep Bs Antibody, Quant Crossmatch 12/05/16 12/05/16 12/05/16 08:54 12:01 15:15 WBC RBC Hgb Hct MCV MCHC RDW Plt Count Seg Neuts % (Manual) Lymphocytes % (Manual) Monocytes % (Manual) Nucleated RBC % Seg Neutrophils # Man Lymphocytes # (Manual) Monocytes # (Manual) Percent Retic Haptoglobin PT INR Fibrinogen D-Dimer POC ABG pH POC ABG pCO2 POC ABG pO2 Sodium Potassium Chloride Carbon Dioxide BUN Creatinine Glucose POC Glucose 157 H 117 H 166 H Lactic Acid Calcium Phosphorus Magnesium Iron TIBC Total Bilirubin Direct Bilirubin AST ALT Alkaline Phosphatase Lactate Dehydrogenase CK-MB (CK-2) Troponin T C-Reactive Protein Total Protein Albumin Triglycerides Cholesterol HDL Cholesterol Vitamin B12 Urine Creatinine Urine Total Protein Heparin-induced Plt Ab Hep Bs Antibody, Quant Crossmatch 12/05/16 12/05/16 12/05/16 16:10 16:55 17:08 WBC RBC Hgb Hct MCV MCHC RDW Plt Count Seg Neuts % (Manual) Lymphocytes % (Manual) Monocytes % (Manual) Nucleated RBC % Seg Neutrophils # Man Lymphocytes # (Manual) Monocytes # (Manual) Percent Retic Haptoglobin PT INR Fibrinogen D-Dimer POC ABG pH POC ABG pCO2 POC ABG pO2 Sodium Potassium Chloride Carbon Dioxide BUN Creatinine Glucose POC Glucose 178 H 169 H Lactic Acid Calcium Phosphorus 5.00 H D Magnesium Iron TIBC Total Bilirubin Direct Bilirubin AST ALT Alkaline Phosphatase Lactate Dehydrogenase CK-MB (CK-2) Troponin T C-Reactive Protein Total Protein Albumin Triglycerides Cholesterol HDL Cholesterol Vitamin B12 Urine Creatinine Urine Total Protein Heparin-induced Plt Ab Hep Bs Antibody, Quant Crossmatch 12/05/16 12/05/16 12/05/16 18:08 18:51 20:04 WBC RBC Hgb Hct MCV MCHC RDW Plt Count Seg Neuts % (Manual) Lymphocytes % (Manual) Monocytes % (Manual) Nucleated RBC % Seg Neutrophils # Man Lymphocytes # (Manual) Monocytes # (Manual) Percent Retic Haptoglobin PT INR Fibrinogen D-Dimer POC ABG pH POC ABG pCO2 POC ABG pO2 Sodium Potassium Chloride Carbon Dioxide BUN Creatinine Glucose POC Glucose 147 H 113 H 64 L Lactic Acid Calcium Phosphorus Magnesium Iron TIBC Total Bilirubin Direct Bilirubin AST ALT Alkaline Phosphatase Lactate Dehydrogenase CK-MB (CK-2) Troponin T C-Reactive Protein Total Protein Albumin Triglycerides Cholesterol HDL Cholesterol Vitamin B12 Urine Creatinine Urine Total Protein Heparin-induced Plt Ab Hep Bs Antibody, Quant Crossmatch 12/05/16 12/05/16 12/05/16 21:34 22:08 23:19 WBC RBC Hgb Hct MCV MCHC RDW Plt Count Seg Neuts % (Manual) Lymphocytes % (Manual) Monocytes % (Manual) Nucleated RBC % Seg Neutrophils # Man Lymphocytes # (Manual) Monocytes # (Manual) Percent Retic Haptoglobin PT INR Fibrinogen D-Dimer POC ABG pH 7.303 L POC ABG pCO2 18.3 L POC ABG pO2 73 L Sodium Potassium Chloride Carbon Dioxide BUN Creatinine Glucose POC Glucose 141 H 200 H Lactic Acid Calcium Phosphorus Magnesium Iron TIBC Total Bilirubin Direct Bilirubin AST ALT Alkaline Phosphatase Lactate Dehydrogenase CK-MB (CK-2) Troponin T C-Reactive Protein Total Protein Albumin Triglycerides Cholesterol HDL Cholesterol Vitamin B12 Urine Creatinine Urine Total Protein Heparin-induced Plt Ab Hep Bs Antibody, Quant Crossmatch 12/06/16 12/06/16 12/06/16 00:01 01:09 02:00 WBC RBC Hgb Hct MCV MCHC RDW Plt Count Seg Neuts % (Manual) Lymphocytes % (Manual) Monocytes % (Manual) Nucleated RBC % Seg Neutrophils # Man Lymphocytes # (Manual) Monocytes # (Manual) Percent Retic Haptoglobin PT INR Fibrinogen D-Dimer POC ABG pH POC ABG pCO2 POC ABG pO2 Sodium Potassium Chloride Carbon Dioxide BUN Creatinine Glucose POC Glucose 211 H 116 H 57 L Lactic Acid Calcium Phosphorus Magnesium Iron TIBC Total Bilirubin Direct Bilirubin AST ALT Alkaline Phosphatase Lactate Dehydrogenase CK-MB (CK-2) Troponin T C-Reactive Protein Total Protein Albumin Triglycerides Cholesterol HDL Cholesterol Vitamin B12 Urine Creatinine Urine Total Protein Heparin-induced Plt Ab Hep Bs Antibody, Quant Crossmatch 12/06/16 12/06/16 12/06/16 04:14 04:50 04:50 WBC RBC 2.68 L Hgb 7.6 L Hct 23.2 L MCV MCHC RDW 18.9 H Plt Count Seg Neuts % (Manual) 32.0 L Lymphocytes % (Manual) Monocytes % (Manual) Nucleated RBC % 3.0 H Seg Neutrophils # Man Lymphocytes # (Manual) 0.9 L Monocytes # (Manual) Percent Retic Haptoglobin PT INR Fibrinogen D-Dimer POC ABG pH POC ABG pCO2 POC ABG pO2 Sodium Potassium 5.8 H D Chloride 111.5 H Carbon Dioxide 11 L BUN 52 H Creatinine 3.8 H Glucose 186 H POC Glucose 133 H Lactic Acid Calcium 6.5 L D Phosphorus 5.80 H Magnesium Iron TIBC Total Bilirubin Direct Bilirubin AST ALT Alkaline Phosphatase Lactate Dehydrogenase CK-MB (CK-2) Troponin T C-Reactive Protein Total Protein Albumin Triglycerides Cholesterol HDL Cholesterol Vitamin B12 Urine Creatinine Urine Total Protein Heparin-induced Plt Ab Hep Bs Antibody, Quant Crossmatch 12/06/16 12/06/16 12/06/16 04:50 05:04 05:07 WBC RBC Hgb Hct MCV MCHC RDW Plt Count Seg Neuts % (Manual) Lymphocytes % (Manual) Monocytes % (Manual) Nucleated RBC % Seg Neutrophils # Man Lymphocytes # (Manual) Monocytes # (Manual) Percent Retic Haptoglobin PT INR Fibrinogen D-Dimer POC ABG pH POC ABG pCO2 13.0 L POC ABG pO2 111 H Sodium Potassium Chloride Carbon Dioxide BUN Creatinine Glucose POC Glucose 127 H Lactic Acid 6.50 H* Calcium Phosphorus Magnesium Iron TIBC Total Bilirubin Direct Bilirubin AST ALT Alkaline Phosphatase Lactate Dehydrogenase CK-MB (CK-2) Troponin T C-Reactive Protein Total Protein Albumin Triglycerides Cholesterol HDL Cholesterol Vitamin B12 Urine Creatinine Urine Total Protein Heparin-induced Plt Ab Hep Bs Antibody, Quant Crossmatch 12/06/16 12/06/16 12/06/16 06:10 06:54 07:46 WBC RBC Hgb Hct MCV MCHC RDW Plt Count Seg Neuts % (Manual) Lymphocytes % (Manual) Monocytes % (Manual) Nucleated RBC % Seg Neutrophils # Man Lymphocytes # (Manual) Monocytes # (Manual) Percent Retic Haptoglobin PT INR Fibrinogen D-Dimer POC ABG pH POC ABG pCO2 POC ABG pO2 Sodium Potassium Chloride Carbon Dioxide BUN Creatinine Glucose POC Glucose 219 H 237 H 158 H Lactic Acid Calcium Phosphorus Magnesium Iron TIBC Total Bilirubin Direct Bilirubin AST ALT Alkaline Phosphatase Lactate Dehydrogenase CK-MB (CK-2) Troponin T C-Reactive Protein Total Protein Albumin Triglycerides Cholesterol HDL Cholesterol Vitamin B12 Urine Creatinine Urine Total Protein Heparin-induced Plt Ab Hep Bs Antibody, Quant Crossmatch 12/06/16 12/06/16 12/06/16 08:55 10:27 11:58 WBC RBC Hgb Hct MCV MCHC RDW Plt Count Seg Neuts % (Manual) Lymphocytes % (Manual) Monocytes % (Manual) Nucleated RBC % Seg Neutrophils # Man Lymphocytes # (Manual) Monocytes # (Manual) Percent Retic Haptoglobin PT INR Fibrinogen D-Dimer POC ABG pH POC ABG pCO2 POC ABG pO2 Sodium Potassium Chloride Carbon Dioxide BUN Creatinine Glucose POC Glucose 40 L 128 H 144 H Lactic Acid Calcium Phosphorus Magnesium Iron TIBC Total Bilirubin Direct Bilirubin AST ALT Alkaline Phosphatase Lactate Dehydrogenase CK-MB (CK-2) Troponin T C-Reactive Protein Total Protein Albumin Triglycerides Cholesterol HDL Cholesterol Vitamin B12 Urine Creatinine Urine Total Protein Heparin-induced Plt Ab Hep Bs Antibody, Quant Crossmatch 12/06/16 12/06/16 12/06/16 18:14 19:00 19:06 WBC RBC Hgb Hct MCV MCHC RDW Plt Count Seg Neuts % (Manual) Lymphocytes % (Manual) Monocytes % (Manual) Nucleated RBC % Seg Neutrophils # Man Lymphocytes # (Manual) Monocytes # (Manual) Percent Retic Haptoglobin PT INR Fibrinogen D-Dimer POC ABG pH POC ABG pCO2 POC ABG pO2 Sodium 149 H Potassium 5.6 H Chloride 115.9 H Carbon Dioxide 13 L BUN 56 H Creatinine 4.3 H Glucose 124 H POC Glucose 55 L 148 H Lactic Acid Calcium 6.0 L Phosphorus Magnesium Iron TIBC Total Bilirubin Direct Bilirubin AST ALT Alkaline Phosphatase Lactate Dehydrogenase CK-MB (CK-2) Troponin T C-Reactive Protein Total Protein Albumin Triglycerides Cholesterol HDL Cholesterol Vitamin B12 Urine Creatinine Urine Total Protein Heparin-induced Plt Ab Hep Bs Antibody, Quant Crossmatch 12/06/16 12/06/16 12/07/16 21:24 21:51 02:32 WBC RBC Hgb Hct MCV MCHC RDW Plt Count Seg Neuts % (Manual) Lymphocytes % (Manual) Monocytes % (Manual) Nucleated RBC % Seg Neutrophils # Man Lymphocytes # (Manual) Monocytes # (Manual) Percent Retic Haptoglobin PT INR Fibrinogen D-Dimer POC ABG pH POC ABG pCO2 17.0 L POC ABG pO2 142 H Sodium Potassium Chloride Carbon Dioxide BUN Creatinine Glucose POC Glucose 107 H 175 H Lactic Acid Calcium Phosphorus Magnesium Iron TIBC Total Bilirubin Direct Bilirubin AST ALT Alkaline Phosphatase Lactate Dehydrogenase CK-MB (CK-2) Troponin T C-Reactive Protein Total Protein Albumin Triglycerides Cholesterol HDL Cholesterol Vitamin B12 Urine Creatinine Urine Total Protein Heparin-induced Plt Ab Hep Bs Antibody, Quant Crossmatch 12/07/16 12/07/16 12/07/16 05:01 05:25 06:00 WBC RBC 2.52 L Hgb 7.1 L Hct 22.1 L MCV MCHC RDW 19.3 H Plt Count 90 L Seg Neuts % (Manual) 75.0 H Lymphocytes % (Manual) 11.0 L Monocytes % (Manual) Nucleated RBC % Seg Neutrophils # Man Lymphocytes # (Manual) 0.7 L Monocytes # (Manual) Percent Retic Haptoglobin PT INR Fibrinogen D-Dimer POC ABG pH 7.300 L POC ABG pCO2 17.1 L POC ABG pO2 140 H Sodium Potassium Chloride Carbon Dioxide BUN Creatinine Glucose POC Glucose 279 H Lactic Acid Calcium Phosphorus Magnesium Iron TIBC Total Bilirubin Direct Bilirubin AST ALT Alkaline Phosphatase Lactate Dehydrogenase CK-MB (CK-2) Troponin T C-Reactive Protein Total Protein Albumin Triglycerides Cholesterol HDL Cholesterol Vitamin B12 Urine Creatinine Urine Total Protein Heparin-induced Plt Ab Hep Bs Antibody, Quant Crossmatch 12/07/16 12/07/16 12/07/16 06:00 06:00 07:30 WBC RBC Hgb Hct MCV MCHC RDW Plt Count Seg Neuts % (Manual) Lymphocytes % (Manual) Monocytes % (Manual) Nucleated RBC % Seg Neutrophils # Man Lymphocytes # (Manual) Monocytes # (Manual) Percent Retic Haptoglobin PT INR Fibrinogen D-Dimer POC ABG pH POC ABG pCO2 POC ABG pO2 Sodium Potassium Chloride Carbon Dioxide BUN Creatinine Glucose POC Glucose Lactic Acid 6.90 H* Calcium Phosphorus 6.80 H Magnesium Iron TIBC Total Bilirubin Direct Bilirubin AST ALT Alkaline Phosphatase Lactate Dehydrogenase CK-MB (CK-2) Troponin T C-Reactive Protein 39.40 H Total Protein Albumin Triglycerides Cholesterol HDL Cholesterol Vitamin B12 Urine Creatinine Urine Total Protein Heparin-induced Plt Ab Hep Bs Antibody, Quant Crossmatch 12/07/16 12/07/16 12/07/16 08:40 10:53 14:31 WBC RBC Hgb Hct MCV MCHC RDW Plt Count Seg Neuts % (Manual) Lymphocytes % (Manual) Monocytes % (Manual) Nucleated RBC % Seg Neutrophils # Man Lymphocytes # (Manual) Monocytes # (Manual) Percent Retic Haptoglobin PT INR Fibrinogen D-Dimer POC ABG pH POC ABG pCO2 POC ABG pO2 Sodium Potassium 7.0 H* D Chloride 112.4 H Carbon Dioxide 8 L* BUN 61 H Creatinine 5.1 H Glucose 213 H POC Glucose 353 H 52 L Lactic Acid Calcium 5.8 L* Phosphorus Magnesium Iron TIBC Total Bilirubin Direct Bilirubin AST ALT Alkaline Phosphatase Lactate Dehydrogenase CK-MB (CK-2) Troponin T C-Reactive Protein Total Protein Albumin Triglycerides Cholesterol HDL Cholesterol Vitamin B12 Urine Creatinine Urine Total Protein Heparin-induced Plt Ab Hep Bs Antibody, Quant Crossmatch 12/07/16 12/07/16 12/07/16 14:45 15:33 16:22 WBC RBC Hgb Hct MCV MCHC RDW Plt Count Seg Neuts % (Manual) Lymphocytes % (Manual) Monocytes % (Manual) Nucleated RBC % Seg Neutrophils # Man Lymphocytes # (Manual) Monocytes # (Manual) Percent Retic Haptoglobin PT 17.5 H INR 1.44 H Fibrinogen D-Dimer POC ABG pH POC ABG pCO2 POC ABG pO2 Sodium Potassium Chloride Carbon Dioxide BUN Creatinine Glucose POC Glucose < 40 L 118 H Lactic Acid Calcium Phosphorus Magnesium Iron TIBC Total Bilirubin Direct Bilirubin AST ALT Alkaline Phosphatase Lactate Dehydrogenase CK-MB (CK-2) Troponin T C-Reactive Protein Total Protein Albumin Triglycerides Cholesterol HDL Cholesterol Vitamin B12 Urine Creatinine Urine Total Protein Heparin-induced Plt Ab Hep Bs Antibody, Quant Crossmatch 12/07/16 12/07/16 12/07/16 21:35 21:35 21:58 WBC RBC Hgb Hct MCV MCHC RDW Plt Count Seg Neuts % (Manual) Lymphocytes % (Manual) Monocytes % (Manual) Nucleated RBC % Seg Neutrophils # Man Lymphocytes # (Manual) Monocytes # (Manual) Percent Retic Haptoglobin PT INR Fibrinogen D-Dimer POC ABG pH POC ABG pCO2 POC ABG pO2 Sodium 150 H Potassium 3.3 L D Chloride 111.4 H Carbon Dioxide 21 L D BUN 22 H Creatinine 2.6 H Glucose 23 L* POC Glucose < 40 L Lactic Acid Calcium Phosphorus Magnesium Iron TIBC Total Bilirubin 1.40 H Direct Bilirubin 0.9 H AST 94 H ALT 142 H Alkaline Phosphatase 249 H Lactate Dehydrogenase CK-MB (CK-2) Troponin T C-Reactive Protein Total Protein 4.6 L D Albumin 2.1 L Triglycerides Cholesterol HDL Cholesterol Vitamin B12 Urine Creatinine Urine Total Protein Heparin-induced Plt Ab Hep Bs Antibody, Quant Crossmatch 12/07/16 12/08/16 12/08/16 23:31 04:43 04:50 WBC RBC 2.35 L Hgb 6.6 L Hct 20.1 L MCV MCHC RDW 17.8 H Plt Count 48 L Seg Neuts % (Manual) Lymphocytes % (Manual) Monocytes % (Manual) Nucleated RBC % Seg Neutrophils # Man Lymphocytes # (Manual) 0.9 L Monocytes # (Manual) Percent Retic Haptoglobin PT INR Fibrinogen D-Dimer POC ABG pH 7.586 H POC ABG pCO2 17.7 L POC ABG pO2 150 H Sodium Potassium Chloride Carbon Dioxide BUN Creatinine Glucose POC Glucose 42 L Lactic Acid Calcium Phosphorus Magnesium Iron TIBC Total Bilirubin Direct Bilirubin AST ALT Alkaline Phosphatase Lactate Dehydrogenase CK-MB (CK-2) Troponin T C-Reactive Protein Total Protein Albumin Triglycerides Cholesterol HDL Cholesterol Vitamin B12 Urine Creatinine Urine Total Protein Heparin-induced Plt Ab Hep Bs Antibody, Quant Crossmatch 12/08/16 12/08/16 12/08/16 04:50 04:59 06:54 WBC RBC Hgb Hct MCV MCHC RDW Plt Count Seg Neuts % (Manual) Lymphocytes % (Manual) Monocytes % (Manual) Nucleated RBC % Seg Neutrophils # Man Lymphocytes # (Manual) Monocytes # (Manual) Percent Retic Haptoglobin PT INR Fibrinogen D-Dimer POC ABG pH POC ABG pCO2 POC ABG pO2 Sodium 149 H Potassium 3.2 L Chloride 111.8 H Carbon Dioxide 17 L BUN 26 H Creatinine 3.4 H Glucose 163 H POC Glucose 204 H 203 H Lactic Acid Calcium 7.7 L Phosphorus 2.40 L D Magnesium Iron TIBC Total Bilirubin Direct Bilirubin AST ALT Alkaline Phosphatase Lactate Dehydrogenase CK-MB (CK-2) Troponin T C-Reactive Protein Total Protein Albumin Triglycerides Cholesterol HDL Cholesterol Vitamin B12 Urine Creatinine Urine Total Protein Heparin-induced Plt Ab Hep Bs Antibody, Quant Crossmatch 12/08/16 12/08/16 12/08/16 08:04 08:46 08:46 WBC RBC Hgb Hct MCV MCHC RDW Plt Count Seg Neuts % (Manual) Lymphocytes % (Manual) Monocytes % (Manual) Nucleated RBC % Seg Neutrophils # Man Lymphocytes # (Manual) Monocytes # (Manual) Percent Retic Haptoglobin PT INR Fibrinogen D-Dimer POC ABG pH POC ABG pCO2 POC ABG pO2 Sodium 147 H Potassium 2.9 L* Chloride 110.6 H Carbon Dioxide 17 L BUN 28 H Creatinine 3.6 H Glucose 127 H POC Glucose 205 H Lactic Acid Calcium 7.3 L Phosphorus Magnesium Iron TIBC Total Bilirubin Direct Bilirubin AST ALT Alkaline Phosphatase Lactate Dehydrogenase CK-MB (CK-2) Troponin T C-Reactive Protein Total Protein Albumin Triglycerides Cholesterol HDL Cholesterol Vitamin B12 Urine Creatinine Urine Total Protein Heparin-induced Plt Ab Hep Bs Antibody, Quant Crossmatch See Detail 07/04/17 07/04/17 07/04/17 12:36 19:00 19:00 WBC RBC Hgb Hct MCV MCHC RDW Plt Count Seg Neuts % (Manual) Lymphocytes % (Manual) Monocytes % (Manual) Nucleated RBC % Seg Neutrophils # Man Lymphocytes # (Manual) Monocytes # (Manual) Percent Retic Haptoglobin PT 15.3 H INR 1.22 H Fibrinogen 563 H D-Dimer 5507.36 H POC ABG pH POC ABG pCO2 POC ABG pO2 Sodium Potassium Chloride Carbon Dioxide 21 L BUN Creatinine 1.7 H D Glucose 155 H POC Glucose 181 H Lactic Acid Calcium Phosphorus Magnesium Iron TIBC Total Bilirubin Direct Bilirubin AST ALT Alkaline Phosphatase Lactate Dehydrogenase CK-MB (CK-2) Troponin T C-Reactive Protein Total Protein Albumin Triglycerides Cholesterol HDL Cholesterol Vitamin B12 Urine Creatinine Urine Total Protein Heparin-induced Plt Ab Hep Bs Antibody, Quant Crossmatch 12/08/16 12/08/16 12/08/16 19:00 19:00 21:30 WBC RBC 2.76 L Hgb 7.8 L Hct 23.7 L MCV MCHC RDW 17.0 H Plt Count 38 L Seg Neuts % (Manual) Lymphocytes % (Manual) Monocytes % (Manual) Nucleated RBC % Seg Neutrophils # Man Lymphocytes # (Manual) Monocytes # (Manual) Percent Retic Haptoglobin 271 H PT INR Fibrinogen D-Dimer POC ABG pH POC ABG pCO2 POC ABG pO2 Sodium Potassium Chloride Carbon Dioxide BUN Creatinine Glucose POC Glucose Lactic Acid Calcium Phosphorus Magnesium Iron TIBC Total Bilirubin Direct Bilirubin AST ALT Alkaline Phosphatase Lactate Dehydrogenase 382 H CK-MB (CK-2) Troponin T C-Reactive Protein Total Protein Albumin Triglycerides Cholesterol HDL Cholesterol Vitamin B12 Urine Creatinine Urine Total Protein Heparin-induced Plt Ab Hep Bs Antibody, Quant Crossmatch 12/08/16 12/08/16 12/09/16 23:32 23:44 05:22 WBC RBC Hgb Hct MCV MCHC RDW Plt Count Seg Neuts % (Manual) Lymphocytes % (Manual) Monocytes % (Manual) Nucleated RBC % Seg Neutrophils # Man Lymphocytes # (Manual) Monocytes # (Manual) Percent Retic Haptoglobin PT INR Fibrinogen D-Dimer POC ABG pH 7.498 H POC ABG pCO2 25.2 L POC ABG pO2 137 H Sodium Potassium Chloride Carbon Dioxide BUN Creatinine Glucose POC Glucose 311 H 113 H Lactic Acid Calcium Phosphorus Magnesium Iron TIBC Total Bilirubin Direct Bilirubin AST ALT Alkaline Phosphatase Lactate Dehydrogenase CK-MB (CK-2) Troponin T C-Reactive Protein Total Protein Albumin Triglycerides Cholesterol HDL Cholesterol Vitamin B12 Urine Creatinine Urine Total Protein Heparin-induced Plt Ab Hep Bs Antibody, Quant Crossmatch 12/09/16 12/09/16 12/09/16 06:00 11:29 11:59 WBC RBC Hgb Hct MCV MCHC RDW Plt Count Seg Neuts % (Manual) Lymphocytes % (Manual) Monocytes % (Manual) Nucleated RBC % Seg Neutrophils # Man Lymphocytes # (Manual) Monocytes # (Manual) Percent Retic 0.23 L Haptoglobin PT INR Fibrinogen D-Dimer POC ABG pH POC ABG pCO2 POC ABG pO2 Sodium Potassium Chloride 110.2 H Carbon Dioxide 18 L BUN 19 H Creatinine 2.5 H Glucose 105 H POC Glucose 254 H Lactic Acid Calcium Phosphorus 2.00 L Magnesium Iron TIBC Total Bilirubin Direct Bilirubin AST ALT Alkaline Phosphatase Lactate Dehydrogenase CK-MB (CK-2) Troponin T C-Reactive Protein Total Protein Albumin Triglycerides Cholesterol HDL Cholesterol Vitamin B12 Urine Creatinine Urine Total Protein Heparin-induced Plt Ab Hep Bs Antibody, Quant Crossmatch 12/09/16 12/09/16 12/09/16 12:02 13:27 13:27 WBC RBC Hgb Hct MCV MCHC RDW Plt Count Seg Neuts % (Manual) Lymphocytes % (Manual) Monocytes % (Manual) Nucleated RBC % Seg Neutrophils # Man Lymphocytes # (Manual) Monocytes # (Manual) Percent Retic Haptoglobin PT INR Fibrinogen D-Dimer POC ABG pH 7.326 L POC ABG pCO2 POC ABG pO2 115 H Sodium Potassium Chloride Carbon Dioxide BUN Creatinine Glucose POC Glucose Lactic Acid Calcium Phosphorus Magnesium Iron 15 L TIBC 134 L Total Bilirubin Direct Bilirubin AST ALT Alkaline Phosphatase Lactate Dehydrogenase CK-MB (CK-2) Troponin T C-Reactive Protein Total Protein Albumin Triglycerides Cholesterol HDL Cholesterol Vitamin B12 > 2000 H Urine Creatinine Urine Total Protein Heparin-induced Plt Ab Hep Bs Antibody, Quant Crossmatch 12/09/16 12/09/16 12/09/16 13:27 13:27 16:28 WBC RBC Hgb Hct MCV MCHC RDW Plt Count Seg Neuts % (Manual) Lymphocytes % (Manual) Monocytes % (Manual) Nucleated RBC % Seg Neutrophils # Man Lymphocytes # (Manual) Monocytes # (Manual) Percent Retic Haptoglobin PT INR Fibrinogen D-Dimer POC ABG pH POC ABG pCO2 POC ABG pO2 Sodium Potassium Chloride Carbon Dioxide BUN Creatinine Glucose POC Glucose 199 H Lactic Acid Calcium Phosphorus Magnesium Iron TIBC Total Bilirubin Direct Bilirubin AST ALT Alkaline Phosphatase Lactate Dehydrogenase CK-MB (CK-2) Troponin T C-Reactive Protein Total Protein Albumin Triglycerides Cholesterol HDL Cholesterol Vitamin B12 Urine Creatinine Urine Total Protein Heparin-induced Plt Ab Weak positive H Hep Bs Antibody, Quant <5 L Crossmatch 12/09/16 12/09/16 12/10/16 23:27 Unknown 05:36 WBC 11.3 H RBC 2.92 L Hgb 8.4 L Hct 25.3 L MCV MCHC RDW 16.9 H Plt Count 31 L Seg Neuts % (Manual) Lymphocytes % (Manual) Monocytes % (Manual) Nucleated RBC % Seg Neutrophils # Man Lymphocytes # (Manual) Monocytes # (Manual) Percent Retic Haptoglobin PT INR Fibrinogen D-Dimer POC ABG pH POC ABG pCO2 POC ABG pO2 Sodium Potassium Chloride Carbon Dioxide BUN Creatinine Glucose POC Glucose 247 H 248 H Lactic Acid Calcium Phosphorus Magnesium Iron TIBC Total Bilirubin Direct Bilirubin AST ALT Alkaline Phosphatase Lactate Dehydrogenase CK-MB (CK-2) Troponin T C-Reactive Protein Total Protein Albumin Triglycerides Cholesterol HDL Cholesterol Vitamin B12 Urine Creatinine Urine Total Protein Heparin-induced Plt Ab Hep Bs Antibody, Quant Crossmatch 12/10/16 12/10/16 12/10/16 09:55 09:55 11:49 WBC 21.2 H RBC 3.37 L Hgb 9.6 L Hct 29.5 L MCV MCHC RDW 16.3 H Plt Count 102 L D Seg Neuts % (Manual) Lymphocytes % (Manual) Monocytes % (Manual) Nucleated RBC % Seg Neutrophils # Man Lymphocytes # (Manual) Monocytes # (Manual) Percent Retic Haptoglobin PT INR Fibrinogen D-Dimer POC ABG pH POC ABG pCO2 POC ABG pO2 Sodium Potassium Chloride 107.4 H Carbon Dioxide 21 L BUN 37 H Creatinine 4.2 H D Glucose 174 H POC Glucose 265 H Lactic Acid Calcium Phosphorus Magnesium Iron TIBC Total Bilirubin Direct Bilirubin AST ALT Alkaline Phosphatase Lactate Dehydrogenase CK-MB (CK-2) Troponin T C-Reactive Protein Total Protein Albumin Triglycerides Cholesterol HDL Cholesterol Vitamin B12 Urine Creatinine Urine Total Protein Heparin-induced Plt Ab Hep Bs Antibody, Quant Crossmatch 12/10/16 12/10/16 12/11/16 17:56 23:44 04:30 WBC 23.5 H RBC 3.46 L Hgb 9.7 L Hct 30.1 L MCV MCHC RDW 16.4 H Plt Count 115 L Seg Neuts % (Manual) 84.0 H Lymphocytes % (Manual) 5.0 L Monocytes % (Manual) 10.0 H Nucleated RBC % 1.0 H Seg Neutrophils # Man 19.7 H Lymphocytes # (Manual) Monocytes # (Manual) 2.4 H Percent Retic Haptoglobin PT INR Fibrinogen D-Dimer POC ABG pH POC ABG pCO2 POC ABG pO2 Sodium Potassium Chloride Carbon Dioxide BUN Creatinine Glucose POC Glucose 118 H 378 H Lactic Acid Calcium Phosphorus Magnesium Iron TIBC Total Bilirubin Direct Bilirubin AST ALT Alkaline Phosphatase Lactate Dehydrogenase CK-MB (CK-2) Troponin T C-Reactive Protein Total Protein Albumin Triglycerides Cholesterol HDL Cholesterol Vitamin B12 Urine Creatinine Urine Total Protein Heparin-induced Plt Ab Hep Bs Antibody, Quant Crossmatch 12/11/16 12/11/16 12/11/16 04:30 05:33 12:48 WBC RBC Hgb Hct MCV MCHC RDW Plt Count Seg Neuts % (Manual) Lymphocytes % (Manual) Monocytes % (Manual) Nucleated RBC % Seg Neutrophils # Man Lymphocytes # (Manual) Monocytes # (Manual) Percent Retic Haptoglobin PT INR Fibrinogen D-Dimer POC ABG pH POC ABG pCO2 POC ABG pO2 Sodium Potassium Chloride Carbon Dioxide 21 L BUN 50 H Creatinine 4.8 H Glucose 303 H POC Glucose 335 H 325 H Lactic Acid Calcium 8.2 L Phosphorus Magnesium Iron TIBC Total Bilirubin Direct Bilirubin AST ALT Alkaline Phosphatase Lactate Dehydrogenase CK-MB (CK-2) Troponin T C-Reactive Protein Total Protein Albumin Triglycerides Cholesterol HDL Cholesterol Vitamin B12 Urine Creatinine Urine Total Protein Heparin-induced Plt Ab Hep Bs Antibody, Quant Crossmatch 12/11/16 12/11/16 12/12/16 17:49 21:16 00:49 WBC RBC Hgb Hct MCV MCHC RDW Plt Count Seg Neuts % (Manual) Lymphocytes % (Manual) Monocytes % (Manual) Nucleated RBC % Seg Neutrophils # Man Lymphocytes # (Manual) Monocytes # (Manual) Percent Retic Haptoglobin PT INR Fibrinogen D-Dimer POC ABG pH POC ABG pCO2 POC ABG pO2 Sodium Potassium Chloride Carbon Dioxide BUN Creatinine Glucose POC Glucose 368 H 162 H 225 H Lactic Acid Calcium Phosphorus Magnesium Iron TIBC Total Bilirubin Direct Bilirubin AST ALT Alkaline Phosphatase Lactate Dehydrogenase CK-MB (CK-2) Troponin T C-Reactive Protein Total Protein Albumin Triglycerides Cholesterol HDL Cholesterol Vitamin B12 Urine Creatinine Urine Total Protein Heparin-induced Plt Ab Hep Bs Antibody, Quant Crossmatch 12/12/16 12/12/16 12/12/16 06:09 07:52 08:18 WBC 24.1 H RBC 3.16 L Hgb 9.0 L Hct 29.4 L MCV MCHC RDW 16.6 H Plt Count 96 L Seg Neuts % (Manual) 75.0 H Lymphocytes % (Manual) Monocytes % (Manual) Nucleated RBC % Seg Neutrophils # Man 18.1 H Lymphocytes # (Manual) Monocytes # (Manual) 1.4 H Percent Retic Haptoglobin PT INR Fibrinogen D-Dimer POC ABG pH POC ABG pCO2 POC ABG pO2 Sodium Potassium Chloride Carbon Dioxide BUN Creatinine Glucose POC Glucose 428 H 418 H Lactic Acid Calcium Phosphorus Magnesium Iron TIBC Total Bilirubin Direct Bilirubin AST ALT Alkaline Phosphatase Lactate Dehydrogenase CK-MB (CK-2) Troponin T C-Reactive Protein Total Protein Albumin Triglycerides Cholesterol HDL Cholesterol Vitamin B12 Urine Creatinine Urine Total Protein Heparin-induced Plt Ab Hep Bs Antibody, Quant Crossmatch 12/12/16 12/12/16 12/12/16 08:18 11:31 17:03 WBC RBC Hgb Hct MCV MCHC RDW Plt Count Seg Neuts % (Manual) Lymphocytes % (Manual) Monocytes % (Manual) Nucleated RBC % Seg Neutrophils # Man Lymphocytes # (Manual) Monocytes # (Manual) Percent Retic Haptoglobin PT INR Fibrinogen D-Dimer POC ABG pH POC ABG pCO2 POC ABG pO2 Sodium Potassium Chloride Carbon Dioxide 12 L D BUN 41 H Creatinine 4.5 H Glucose 369 H POC Glucose 212 H 422 H Lactic Acid Calcium Phosphorus Magnesium Iron TIBC Total Bilirubin Direct Bilirubin AST ALT Alkaline Phosphatase Lactate Dehydrogenase CK-MB (CK-2) Troponin T C-Reactive Protein Total Protein Albumin Triglycerides Cholesterol HDL Cholesterol Vitamin B12 Urine Creatinine Urine Total Protein Heparin-induced Plt Ab Hep Bs Antibody, Quant Crossmatch 12/12/16 12/13/16 12/13/16 21:35 07:49 07:49 WBC 24.0 H RBC 2.90 L Hgb 8.3 L Hct 25.8 L MCV MCHC RDW 15.5 H Plt Count 120 L Seg Neuts % (Manual) 89.0 H Lymphocytes % (Manual) 7.0 L Monocytes % (Manual) Nucleated RBC % Seg Neutrophils # Man 21.4 H Lymphocytes # (Manual) Monocytes # (Manual) Percent Retic Haptoglobin PT INR Fibrinogen D-Dimer POC ABG pH POC ABG pCO2 POC ABG pO2 Sodium Potassium 3.2 L Chloride Carbon Dioxide BUN 21 H Creatinine 3.0 H Glucose 21 L* POC Glucose 185 H Lactic Acid Calcium Phosphorus Magnesium Iron TIBC Total Bilirubin Direct Bilirubin AST ALT Alkaline Phosphatase Lactate Dehydrogenase CK-MB (CK-2) Troponin T C-Reactive Protein Total Protein Albumin Triglycerides Cholesterol HDL Cholesterol Vitamin B12 Urine Creatinine Urine Total Protein Heparin-induced Plt Ab Hep Bs Antibody, Quant Crossmatch 12/13/16 11:02 WBC RBC Hgb Hct MCV MCHC RDW Plt Count Seg Neuts % (Manual) Lymphocytes % (Manual) Monocytes % (Manual) Nucleated RBC % Seg Neutrophils # Man Lymphocytes # (Manual) Monocytes # (Manual) Percent Retic Haptoglobin PT INR Fibrinogen D-Dimer POC ABG pH POC ABG pCO2 POC ABG pO2 Sodium Potassium Chloride Carbon Dioxide BUN Creatinine Glucose POC Glucose 231 H Lactic Acid Calcium Phosphorus Magnesium Iron TIBC Total Bilirubin Direct Bilirubin AST ALT Alkaline Phosphatase Lactate Dehydrogenase CK-MB (CK-2) Troponin T C-Reactive Protein Total Protein Albumin Triglycerides Cholesterol HDL Cholesterol Vitamin B12 Urine Creatinine Urine Total Protein Heparin-induced Plt Ab Hep Bs Antibody, Quant Crossmatch Chest x-ray: report reviewed (Persistent right upper lobe infiltrate and new right lower lobe infiltrate.), image reviewed
[2016-12-13] MEDS ORDERED: LEVAQUIN 500MG/100ML 500 MG/100 ML BAG IV ONE (17:00)
[2016-12-13] MEDS: ZOSYN/NS 2.25 GM/50ML 2.25 GM/50 ML BAG IV SCH ×2 (17:25→23:05)
[2016-12-13] MEDS: D50W (25GM) IV PRN (17:37)
[2016-12-13] MEDS: LEVEMIR SUB-Q SCH (23:07)
[2016-12-13] MEDS: TYLENOL PR PRN (23:26)
[2016-12-14] MEDS: ZOSYN/NS 2.25 GM/50ML 2.25 GM/50 ML BAG IV SCH (05:05)
[2016-12-14] MEDS: FLAGYL 500 MG/100 ML 500 MG/100 ML BAG IV SCH ×3 (05:05→22:11)
[2016-12-14 07:54] LABS: Basophils % (Auto) 0.3 % (0.0-1.8); Hematocrit 24.7 % (30.3-42.9); Hemoglobin 7.9 gm/dl (10.1-14.3); Mean Corpuscular HGB Conc 32 % (30-34); Mean Corpuscular Hemoglobin 28 pg (28-32); Mean Corpuscular Volume 88 fl (79-97); Platelet Count 131 K/mm3 (140-440); Red Cell Distribution Width 15.4 % (13.2-15.2); White Blood Count 16.7 K/mm3 (4.5-11.0)
[2016-12-14 08:03] LABS: BUN/Creatinine Ratio 6.52; Calcium 7.7 mg/dL (8.4-10.2); Chloride 101.5 mmol/L (98-107); Phosphorous 2.6 mg/dL (2.5-4.5); Potassium 3.5 mmol/L (3.6-5.0)
[2016-12-14] MEDS: TOBRAMYCIN INHALATION (NICU) (40 MG/ML) IH SCH ×2 (08:38→21:46)
--- NOTE | 2016-12-14 11:16 | Progress Note ---
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 manager terminal insulin use: D Qualified Code(s): E10.10 - Type 1 diabetes mellitus with ketoacidosis without coma Plan to address problem: insulin regimen per primary team (2) Acute hypernatremia Current Visit: No Status: Acute Plan to address problem: resolved (3) Acute kidney failure with tubular necrosis Current Visit: No Status: Acute Plan to address problem: secondary to ischemic ATN from shock vascath was removed today, will cont to monitor signs of renal recovery, if no improvement within 24-48 will request permcath strict I&O daily weight renal diet (4) Leukocytosis Current Visit: Yes Status: Acute Qualifiers: Leukocytosis type: L Plan to address problem: followed by ID, improving vascath cultures are NTD Subjective Date of service: 12/14/16 Principal diagnosis: Severe Sepsis; DKA, cardiac arrest Interval history: vascath was taken out this AM, some blood oozing from catheter site Objective - Vital Signs Vital signs: Vital Signs - 12hr 12/14/16 12/14/16 12/14/16 01:22 04:35 07:10 Temperature 98.9 F 97.6 F 98.8 F Pulse Rate [ Anterior Bilateral Throughout] Pulse Rate [ 114 H 106 H 108 H Right Radial] Respiratory 18 22 20 Rate Respiratory Rate [Anterior Bilateral Throughout] Blood Pressure 136/68 139/78 124/81 [Right Arm] O2 Sat by Pulse 95 94 95 Oximetry 12/14/16 12/14/16 08:39 08:56 Temperature Pulse Rate [ 107 H 107 H Anterior Bilateral Throughout] Pulse Rate [ Right Radial] Respiratory Rate Respiratory 18 18 Rate [Anterior Bilateral Throughout] Blood Pressure [Right Arm] O2 Sat by Pulse Oximetry - General Appearance General appearance: well-developed, well-nourished EENT: ATNC, PERRL, mucous membranes moist Neck: no JVD, no carotid bruit Respiratory: Present: Clear to Ascultation, Normal Exam Cardiology: regular, S1S2 Gastrointestinal: normoactive bowel sounds, no tenderness, no distended, no guarding Integumentary: no rash, warm and dry Neurologic: no focal deficit, no asterixis, alert and oriented x3 Musculoskeletal: other (no edema in BLE) Psychiatric: mood/affect appropriate, cooperative - Lab 12/14/16 07:07 12/14/16 07:07 Most recent lab results Calcium 7.7 mg/dL (8.4-10.2) L 12/14/16 07:07 Phosphorus 2.60 mg/dL (2.5-4.5) 12/14/16 07:07 Magnesium 1.90 mg/dL (1.7-2.3) 12/11/16 04:30 Urine Creatinine 29.5 mg/dL (0.1-20.0) H 12/04/16 11:25 Urine Sodium 26 mEq/L 12/04/16 11:25 Urine Total Protein 33 mg/dL (5-11.8) H 12/04/16 11:25
--- NOTE | 2016-12-14 13:57 | Progress Note ---
Assessment and Plan Assessment and plan: Patient is a 46-year-old woman with history of insulin-dependent diabetes mellitus, hypertension, recent SAH and dyslipidemia who presented with DKA, AMS and STEMI with V. fib arrest requiring IV amiodarone suppression. She intubated and she was on IV insulin drip for documented DKA, Levophed, IV vancomycin and propofol drip. She has a right groin triple-lumen catheter, Short and NG tube. ET tube removed. Extubated 12/09/16 doing well. Off pressors, diprivan. -Cardiac arrest with V. fib: Cardiology is following -ARF, ATN, poa: renal is following, status post hemodialysis -Acute hypoxic respiratory failure, extubated: [employer] is following -Cardiac arrest was STEMI: Cardiology is following -Suspected DKA: Status post insulin drip -Metabolic Acidosis, treat the DKA -Acute metabolic encephalopathy, poa, resolved -Leukocytosis +GNR in trach aspirate, pseudomonas aeruginosa: ID is following -DVT prophylaxis: SCDs only due to recent SAH -Thrombocytopenia due to sepsis, improved status post platelet transfusion -Acute on chronic anemia of chronic disease s/p 2 unit of prbc, monitoring closely 12/11/16: prognosis guarded, doing better today d/w Dr. Lisa lugo to transfer out the ICU 12/12/16: NG tube removed yesterday she is on mechanical soft ground meats and nectar thickened liquids, D/C the Short. She still has left arm PICC line. She doesn't much better. Main issue today is hyperglycemia, will increase insulin and start Levemir 12/13/16: hypoglycemic, reduce Levemir. D/w RN now 231 after d5. Not eating much. New infiltrate R lung, i started on iv zosyn 12/14/16: Dr. Casillas stopped iv zosyn and started iv levaquin, I called ID to re-evaluate. Slight drop in HCt, will recheck in am. Mild hyokalemia should be address with hemodialysis. History Interval history: Patient seen and examined. Follow up on cardiac arrest, Imaging, old records, testing, labs, nursing notes reviewed. Patient states she feels better. She denies any shortness of breath, chest pain. Hospitalist Physical - Physical exam Narrative exam: GEN: NAD, AWAKE, ALERT, ORIENTATED x 3 CVS: Regular tachycardic, NORMAL S1S2 LUNGS/CHEST: NORMAL CHEST EXPANSION B, improved ENTRY B ABD: SOFT, NTND, GBS, NO REBOUND OR GUARDING MSK: FROM X 4 EXTREMITIES NEURO: CN 2-12 GROSSLY INTACT, NO new FOCAL DEFICITS PSY: CALM - Constitutional Vitals: Temp Pulse Resp BP Pulse Ox 99.0 F 116 H 20 163/94 95 12/14/16 11:00 12/14/16 11:00 12/14/16 11:00 12/14/16 11:00 12/14/16 07:10 General appearance: Present: no acute distress Results - Labs CBC & Chem 7: 12/14/16 07:07 12/14/16 07:07 Labs: Laboratory Last Values WBC 16.7 K/mm3 (4.5-11.0) H 12/14/16 07:07 RBC 2.80 M/mm3 (3.65-5.03) L 12/14/16 07:07 Hgb 7.9 gm/dl (10.1-14.3) L 12/14/16 07:07 Hct 24.7 % (30.3-42.9) L 12/14/16 07:07 MCV 88 fl (79-97) 12/14/16 07:07 MCH 28 pg (28-32) 12/14/16 07:07 MCHC 32 % (30-34) 12/14/16 07:07 RDW 15.4 % (13.2-15.2) H 12/14/16 07:07 Plt Count 131 K/mm3 (140-440) L 12/14/16 07:07 Lymph % (Auto) 13.1 % (13.4-35.0) L 12/14/16 07:07 King % (Auto) 7.3 % (0.0-7.3) 12/14/16 07:07 Eos % (Auto) 1.0 % (0.0-4.3) 12/14/16 07:07 Baso % (Auto) 0.3 % (0.0-1.8) 12/14/16 07:07 Lymph # 2.2 K/mm3 (1.2-5.4) 12/14/16 07:07 King # 1.2 K/mm3 (0.0-0.8) H 12/14/16 07:07 Eos # 0.2 K/mm3 (0.0-0.4) 12/14/16 07:07 Baso # 0.0 K/mm3 (0.0-0.1) 12/14/16 07:07 Add Manual Diff Complete 12/13/16 07:49 Total Counted 100 12/13/16 07:49 Seg Neutrophils % 78.3 % (40.0-70.0) H 12/14/16 07:07 Seg Neuts % (Manual) 89.0 % (40.0-70.0) H 12/13/16 07:49 Band Neutrophils % 1.0 % 12/13/16 07:49 Lymphocytes % (Manual) 7.0 % (13.4-35.0) L 12/13/16 07:49 Reactive Lymphs % (Man) 0 % 12/13/16 07:49 Monocytes % (Manual) 3.0 % (0.0-7.3) 12/13/16 07:49 Eosinophils % (Manual) 0 % (0.0-4.3) 12/13/16 07:49 Basophils % (Manual) 0 % (0.0-1.8) 12/13/16 07:49 Metamyelocytes % 0 % 12/13/16 07:49 Myelocytes % 0 % 12/13/16 07:49 Promyelocytes % 0 % 12/13/16 07:49 Blast Cells % 0 % 12/13/16 07:49 Nucleated RBC % Not Reportable 12/13/16 07:49 Seg Neutrophils # 13.1 K/mm3 (1.8-7.7) H 12/14/16 07:07 Seg Neutrophils # Man 21.4 K/mm3 (1.8-7.7) H 12/13/16 07:49 Band Neutrophils # 0.2 K/mm3 12/13/16 07:49 Lymphocytes # (Manual) 1.7 K/mm3 (1.2-5.4) 12/13/16 07:49 Abs React Lymphs (Man) 0.0 K/mm3 12/13/16 07:49 Monocytes # (Manual) 0.7 K/mm3 (0.0-0.8) 12/13/16 07:49 Eosinophils # (Manual) 0.0 K/mm3 (0.0-0.4) 12/13/16 07:49 Basophils # (Manual) 0.0 K/mm3 (0.0-0.1) 12/13/16 07:49 Metamyelocytes # 0.0 K/mm3 12/13/16 07:49 Myelocytes # 0.0 K/mm3 12/13/16 07:49 Promyelocytes # 0.0 K/mm3 12/13/16 07:49 Blast Cells # 0.0 K/mm3 12/13/16 07:49 WBC Morphology Not Reportable 12/13/16 07:49 Hypersegmented Neuts Not Reportable 12/13/16 07:49 Hyposegmented Neuts Not Reportable 12/13/16 07:49 Hypogranular Neuts Not Reportable 12/13/16 07:49 Smudge Cells Not Reportable 12/13/16 07:49 Toxic Granulation Not Reportable 12/13/16 07:49 Toxic Vacuolation Not Reportable 12/13/16 07:49 Dohle Bodies Not Reportable 12/13/16 07:49 Pelger-Huet Anomaly Not Reportable 12/13/16 07:49 Mary Rods Not Reportable 12/13/16 07:49 Platelet Estimate Cons 12/13/16 07:49 Clumped Platelets Not Reportable 12/13/16 07:49 Plt Clumps, EDTA Not Reportable 12/13/16 07:49 Large Platelets Rare 12/13/16 07:49 Giant Platelets Not Reportable 12/13/16 07:49 Platelet Satelliting Not Reportable 12/13/16 07:49 Plt Morphology Comment Not Reportable 12/13/16 07:49 RBC Morphology Not Reportable 12/13/16 07:49 Dimorphic RBCs Not Reportable 12/13/16 07:49 Polychromasia Not Reportable 12/13/16 07:49 Hypochromasia 1+ 12/13/16 07:49 Poikilocytosis Not Reportable 12/13/16 07:49 Anisocytosis 1+ 12/13/16 07:49 Microcytosis Not Reportable 12/13/16 07:49 Macrocytosis Not Reportable 12/13/16 07:49 Spherocytes Not Reportable 12/13/16 07:49 Pappenheimer Bodies Not Reportable 12/13/16 07:49 Sickle Cells Not Reportable 12/13/16 07:49 Target Cells Few 12/13/16 07:49 Tear Drop Cells Not Reportable 12/13/16 07:49 Ovalocytes Not Reportable 12/13/16 07:49 Helmet Cells Not Reportable 12/13/16 07:49 Landers-Lyden Bodies Not Reportable 12/13/16 07:49 [place] Rings Not Reportable 12/13/16 07:49 Jerri Cells Not Reportable 12/13/16 07:49 Bite Cells Not Reportable 12/13/16 07:49 Crenated Cell Not Reportable 12/13/16 07:49 Elliptocytes Not Reportable 12/13/16 07:49 Acanthocytes (Spur) Not Reportable 12/13/16 07:49 Rouleaux Not Reportable 12/13/16 07:49 Hemoglobin C Crystals Not Reportable 12/13/16 07:49 Schistocytes Not Reportable 12/13/16 07:49 Malaria parasites Not Reportable 12/13/16 07:49 Percent Retic 0.23 % (0.78-2.58) L 12/09/16 11:29 Michael Bodies Not Reportable 12/13/16 07:49 Haptoglobin 271 mg/dL (43-212) H 12/08/16 21:30 Hem Pathologist Commnt No 12/13/16 07:49 PT 15.3 Sec. (12.2-14.9) H 12/08/16 19:00 INR 1.22 (0.87-1.13) H 12/08/16 19:00 APTT 36.2 Sec. (24.2-36.6) 12/08/16 19:00 Fibrinogen 563 mg/dl (211-480) H 12/08/16 19:00 D-Dimer 5507.36 ng/mlDDU (0-234) H 12/08/16 19:00 Heparin Anti-Xa, Unfract Negative (Negative) 12/09/16 13:27 POC ABG pH 7.326 (7.35-7.45) L 12/09/16 12:02 POC ABG pCO2 37.7 (35-45) 12/09/16 12:02 POC ABG pO2 115 (80-105) H 12/09/16 12:02 POC ABG HCO3 19.7 12/09/16 12:02 POC ABG Total CO2 21 12/09/16 12:02 POC ABG O2 Sat 98 12/09/16 12:02 POC ABG Base Excess -6 12/09/16 12:02 FiO2 30 % 12/09/16 12:02 Sodium 140 mmol/L (137-145) 12/14/16 07:07 Potassium 3.5 mmol/L (3.6-5.0) L 12/14/16 07:07 Chloride 101.5 mmol/L (98-107) 12/14/16 07:07 Carbon Dioxide 23 mmol/L (22-30) 12/14/16 07:07 Anion Gap 19 mmol/L 12/14/16 07:07 BUN 30 mg/dL (7-17) H 12/14/16 07:07 Creatinine 4.6 mg/dL (0.7-1.2) H D 12/14/16 07:07 Estimated GFR 12 ml/min 12/14/16 07:07 BUN/Creatinine Ratio 6.52 % 12/14/16 07:07 Glucose 181 mg/dL (65-100) H 12/14/16 07:07 POC Glucose 254 (70-105) H 12/14/16 11:35 Lactic Acid 6.90 mmol/L (0.7-2.0) H* 12/07/16 07:30 Calcium 7.7 mg/dL (8.4-10.2) L 12/14/16 07:07 Phosphorus 2.60 mg/dL (2.5-4.5) 12/14/16 07:07 Magnesium 1.90 mg/dL (1.7-2.3) 12/11/16 04:30 Iron 15 ug/dL (37-170) L 12/09/16 13:27 TIBC 134 mcg/dL (250-450) L 12/09/16 13:27 Ferritin 360.1 ng/mL (13.0-400.0) 12/09/16 13:27 Total Bilirubin 1.40 mg/dL (0.1-1.2) H 12/07/16 21:35 Direct Bilirubin 0.9 mg/dL (0-0.2) H 12/07/16 21:35 Indirect Bilirubin 0.5 mg/dL 12/07/16 21:35 AST 94 units/L (5-40) H 12/07/16 21:35 ALT 142 units/L (7-56) H 12/07/16 21:35 Alkaline Phosphatase 249 units/L (35-129) H 12/07/16 21:35 Lactate Dehydrogenase 382 units/L (91-180) H 12/08/16 19:00 Total Creatine Kinase 123 units/L (30-135) 12/04/16 09:55 CK-MB (CK-2) 4.6 ng/mL (0.0-4.0) H 12/04/16 09:55 CK-MB (CK-2) Rel Index 3.7 (0-4) 12/04/16 09:55 Troponin T 0.140 ng/mL (0.00-0.029) H* D 12/04/16 09:55 C-Reactive Protein 39.40 mg/dL (0.00-1.30) H 12/07/16 06:00 Total Protein 4.6 g/dL (6.3-8.2) L D 12/07/16 21:35 Albumin 2.1 g/dL (3.9-5) L 12/07/16 21:35 Albumin/Globulin Ratio 0.8 % 12/07/16 21:35 Triglycerides 570 mg/dL (2-149) H 12/04/16 07:55 Cholesterol 221 mg/dL (50-199) H 12/04/16 07:55 LDL Cholesterol Direct TNR 12/04/16 07:55 HDL Cholesterol 37 mg/dL (40-59) L 12/04/16 07:55 Cholesterol/HDL Ratio 5.97 % 12/04/16 07:55 Vitamin B12 > 2000 pg/mL (211-911) H 12/09/16 13:27 Folate 8.10 ng/mL (7.3-26.0) 12/09/16 13:27 TSH 1.600 mlU/mL (0.270-4.200) 12/03/16 23:20 Urine Color Yellow (Yellow) 12/04/16 11:25 Urine Turbidity Slightly-cloudy (Clear) 12/04/16 11:25 Urine pH 5.0 (5.0-7.0) 12/04/16 11:25 Ur Specific [place] 1.018 (1.003-1.030) 12/04/16 11:25 Urine Protein 30 mg/dl mg/dL (Negative) 12/04/16 11:25 Urine Glucose (UA) >=500 mg/dL (Negative) 12/04/16 11:25 Urine Ketones Tr mg/dL (Negative) 12/04/16 11:25 Urine Blood Sm (Negative) 12/04/16 11:25 Urine Nitrite Neg (Negative) 12/04/16 11:25 Urine Bilirubin Neg (Negative) 12/04/16 11:25 Urine Urobilinogen < 2.0 mg/dL (<2.0) 12/04/16 11:25 Ur Leukocyte Esterase Neg (Negative) 12/04/16 11:25 Urine WBC (Auto) 4.0 /HPF (0.0-6.0) 12/04/16 11:25 Urine RBC (Auto) 2.0 /HPF (0.0-6.0) 12/04/16 11:25 U Epithel Cells (Auto) < 1.0 /HPF (0-13.0) 12/04/16 11:25 Urine Mucus Few /HPF 12/04/16 11:25 Urine Osmolality 419 Mosm/kg 12/04/16 11:25 Urine Creatinine 29.5 mg/dL (0.1-20.0) H 12/04/16 11:25 Protein/Creatinin Ratio 1.12 12/04/16 11:25 Urine Sodium 26 mEq/L 12/04/16 11:25 Urine Total Protein 33 mg/dL (5-11.8) H 12/04/16 11:25 Urine Opiates Screen Presumptive negative 12/04/16 11:25 Urine Methadone Screen Presumptive negative 12/04/16 11:25 Ur Barbiturates Screen Presumptive negative 12/04/16 11:25 Ur Phencyclidine Scrn Presumptive negative 12/04/16 11:25 Ur Amphetamines Screen Presumptive negative 12/04/16 11:25 U Benzodiazepines Scrn Presumptive negative 12/04/16 11:25 Urine Cocaine Screen Presumptive negative 12/04/16 11:25 U Marijuana (THC) Screen Presumptive positive 12/04/16 11:25 Drugs of Abuse Note Disclamer 12/04/16 11:25 Heparin-induced Plt Ab Weak positive (Negative) H 12/09/16 13:27 UF Heparin High Dose 0 % Release 12/09/16 13:27 ADRIENNE UFH Low Dose 0.1 0 % Release 12/09/16 13:27 ADRIENNE UFH Low Dose 0.5 0 % Release 12/09/16 13:27 Hep Bs Antigen Non-reactive (Negative) 12/09/16 13:27 Hep Bs Antibody, Quant <5 mIU/mL (>=10) L 12/09/16 13:27 Hep B Core Total Ab Nonreactive (Nonreactive) 12/09/16 13:27 Hepatitis C Antibody Non-reactive (NonReactive) 12/09/16 13:27 HIV 1&2 Antibody Rapid Non react (Non React) 12/09/16 13:27 HIV P24 Antigen Non react (Non React) 12/09/16 13:27 Schistocytes Smear None seen 12/09/16 11:29 Blood Type O POSITIVE 12/08/16 08:46 Antibody Screen TNR 12/08/16 08:46 ISAIAH Antibody Screen Negative 12/08/16 08:46 Crossmatch See Detail 12/08/16 08:46
--- NOTE | 2016-12-14 14:09 | Gastroenterology Consultation ---
History of Present Illness - Reason for Consult Consult date: 12/14/16 PEG placement Requesting physician: ANGLE TRIVEDI - History of Present Illness Patient is a 46 y/o female who presented to the ER with AMS, DKA, and STEMI. She is s/p cardiac arrest. Extubated on 12/09/16. Our group was consulted for a possible PEG placement. She has a speech eval with MBS done on 12/11/16 with recommendations for a mechanical soft diet w/ nector thickened liquids. This afternoon, pt was resting in her bed, without distress. She was A & O x 3. She denies abd pain, dysphagia, or N/V. Pt is tolerating current diet well, but has a decreased appetite. Discussed with pt the possibility of placing a PEG tube to meet nutritional needs. Patient state she does not want a PEG tube placed at this time. Past History Past Medical History: anemia, diabetes, hypertension, hyperlipidemia, renal failure Past Surgical History: No surgical history Social history: no significant social history Family history: no significant family history Medications and Allergies Allergies Allergy/AdvReac Type Severity Reaction Status Date / Time No Known Allergies Allergy Verified 12/03/16 23:01 Home Medications Medication Instructions Recorded Confirmed Last Taken Type Calcium Carbonate [Oscal] 1,250 mg PO BID #60 tablet 11/08/16 12/05/16 Unknown Rx Insulin NPH/Regular [NovoLIN 70/30] 10 unit SUB-Q BIDDIAB 30 Days 11/08/1612/05 Unknown Rx Metoprolol [Lopressor TAB] 12.5 mg PO BID #60 tablet 11/08/16 12/05/16 Unknown Rx Metoprolol [Lopressor TAB] 25 mg PO BID #60 tablet 11/08/16 12/05/16 Unknown Rx Pantoprazole [Protonix TAB] 40 mg PO QDAY #30 tablet 11/08/16 12/05/16 Unknown Rx HumaLOG VIAL See Protocol SQ ACHS PRN 12/04/16 12/04/16 Unknown History Lantus VIAL 12/04/16 Unknown History Active Meds: Active Medications Acetaminophen (Tylenol) 650 mg DC Q6H PRN PRN Reason: for temp greater than 100 Last Admin: 12/13/16 23:26 Dose: 650 mg Dextrose (D50w (25gm)) 50 ml IV PRN PRN PRN Reason: Hypoglycemia Last Admin: 12/13/16 17:37 Dose: 50 ml Famotidine (Pepcid) 20 mg PO DAILY [facility] Last Admin: 12/13/16 10:13 Dose: 20 mg Heparin Sodium (Porcine) (Heparin) 5,000 unit IV CHEKO PRN PRN Reason: hemodialysis Last Admin: 12/12/16 17:02 Dose: 5,000 unit Metronidazole (Flagyl 500 Mg/100 Ml) 500 mg in 100 mls @ 100 mls/hr IV Q8HR [facility] Last Admin: 12/14/16 05:05 Dose: 100 mls/hr Levofloxacin/Dextrose (Levaquin 500mg/100ml) 500 mg in 100 mls @ 100 mls/hr IV Q48H [facility] Insulin Aspart (Novolog) 0 units SUB-Q ACHS [facility] PRN Reason: Protocol Last Admin: 12/13/16 23:12 Dose: Not Given Insulin Detemir (Levemir) 5 units SUB-Q QHS [facility] Last Admin: 12/13/16 23:07 Dose: 5 units Metoclopramide HCl (Reglan) 5 mg IV Q8H [facility] Last Admin: 12/13/16 23:06 Dose: 5 mg Sodium Bicarbonate (Sodium Bicarbonate) 325 mg FEEDTUBE PRN PRN PRN Reason: For Clogged Feeding Tube Last Admin: 12/09/16 10:40 Dose: 325 mg Tobramycin Sulfate (Tobramycin Inhalation (Nicu) (40 Mg/Ml)) 300 mg IH Q12HRT [facility] Stop: 12/17/16 07:59 Last Admin: 12/14/16 08:38 Dose: 300 mg Review of Systems - Review of Systems Constitutional: poor appetite Gastrointestinal: no abdominal pain, no nausea, no vomiting Exam - Constitutional Vital Signs: Temp Pulse Resp BP Pulse Ox 99.0 F 116 H 20 163/94 95 12/14/16 11:00 12/14/16 11:00 12/14/16 11:00 12/14/16 11:00 12/14/16 07:10 General appearance: no acute distress - EENT Eyes: PERRL, EOM intact ENT: hearing intact - Respiratory Respiratory: bilateral: diminished - Cardiovascular Rhythm: other (tachycardia) Heart Sounds: Present: S1 & S2 Extremities: No edema - Gastrointestinal General gastrointestinal: Present: soft, non-tender, non-distended, normal bowel sounds - Integumentary Integumentary: Present: warm - Neurologic Neurological: alert and oriented x3 - Psychiatric Psychiatric: appropriate mood/affect - Labs CBC & Chem 7: 12/14/16 07:07 12/14/16 07:07 Lab Results: Laboratory Results - last 24 hr 12/13/16 12/13/16 12/13/16 09:57 16:52 21:32 WBC RBC Hgb Hct MCV MCH MCHC RDW Plt Count Lymph % (Auto) [place] % (Auto) Eos % (Auto) Baso % (Auto) Lymph # [place] # Eos # Baso # Seg Neutrophils % Seg Neutrophils # Sodium Potassium Chloride Carbon Dioxide Anion Gap BUN Creatinine Estimated GFR BUN/Creatinine Ratio Glucose POC Glucose < 40 L 312 H 275 H Calcium Phosphorus 12/14/16 12/14/16 12/14/16 07:07 07:07 11:35 WBC 16.7 H RBC 2.80 L Hgb 7.9 L Hct 24.7 L MCV 88 MCH 28 MCHC 32 RDW 15.4 H Plt Count 131 L Lymph % (Auto) 13.1 L [place] % (Auto) 7.3 Eos % (Auto) 1.0 Baso % (Auto) 0.3 Lymph # 2.2 [place] # 1.2 H Eos # 0.2 Baso # 0.0 Seg Neutrophils % 78.3 H Seg Neutrophils # 13.1 H Sodium 140 Potassium 3.5 L Chloride 101.5 Carbon Dioxide 23 Anion Gap 19 BUN 30 H Creatinine 4.6 H D Estimated GFR 12 BUN/Creatinine Ratio 6.52 Glucose 181 H POC Glucose 254 H Calcium 7.7 L Phosphorus 2.60 Assessment and Plan 1.PEG tube placement -speech eval 12/11-MBS completed- recommended a mechanical soft diet w/nector thickened liquids -Pt A&Ox3 and tolerating current diet -Pt is refusing PEG tube at this time -no plans for PEG tube placement at this time -please re-consult if pt's condition changes, will sign off
[2016-12-14] MEDS: PEPCID PO SCH (15:35)
[2016-12-14] MEDS: REGLAN IV SCH (15:35)
[2016-12-14] MEDS: NOVOLOG SUB-Q SCH ×4 (15:41→22:18)
[2016-12-14] MEDS ORDERED: LEVAQUIN 250MG/50ML 250 MG/50 ML BAG IV SCH (17:00)
--- NOTE | 2016-12-14 18:24 | Progress Note ---
Assessment and Plan Patient alert, awake.. No acute respiratory distress.No complaint of chest pain or shortness of breath..Patient resting on room air .O2 saturation 95%. - Patient Problems (1) DKA (diabetic ketoacidoses) Current Visit: Yes Status: Acute Qualifiers: Diabetes mellitus type: type 1 Diabetes mellitus complication detail: without coma Diabetes mellitus terminal gauger insulin use: D Qualified Code(s): E10.10 - Type 1 diabetes mellitus with ketoacidosis without coma Plan to address problem: Patient is on S/C insulin. Patient alert, awake. Clinicaly appears improving. Management as per primary care. (2) Metabolic encephalopathy Current Visit: Yes Status: Acute Plan to address problem: Patient alert, awake, following commands. Appears encephalopathy improving. Management as per primary care. (3) Pulmonary infiltrate in right lung on chest x-ray Current Visit: Yes Status: Acute Plan to address problem: Patient is on I/V flagyl. Starting on I/V Levaquine. Patient afebrile. Still has leukocytosis. Subjective Date of service: 12/14/16 Principal diagnosis: Severe Sepsis; DKA, cardiac arrest Interval history: Patient alert, awake, weak. No acute respiratory distress. No complaint of chest pain or shortness of breath. Slight cough and hoarseness of voice.O2 saturation 95% on room air. Objective Vital Signs - 12hr 12/14/16 12/14/16 12/14/16 07:10 08:39 08:56 Temperature 98.8 F Pulse Rate [ 107 H 107 H Anterior Bilateral Throughout] Pulse Rate [ 108 H Right Radial] Respiratory 20 Rate Respiratory 18 18 Rate [Anterior Bilateral Throughout] Blood Pressure 124/81 [Right Arm] O2 Sat by Pulse 95 Oximetry 12/14/16 12/14/16 11:00 14:45 Temperature 99.0 F 98.9 F Pulse Rate [ Anterior Bilateral Throughout] Pulse Rate [ 116 H 110 H Right Radial] Respiratory 20 20 Rate Respiratory Rate [Anterior Bilateral Throughout] Blood Pressure 163/94 161/86 [Right Arm] O2 Sat by Pulse Oximetry Constitutional: no acute distress, alert Eyes: non-icteric ENT: oropharynx moist Neck: supple, no lymphadenopathy Effort: mildly labored Ascultation: Bilateral: diminished breath sounds, rales (R>L lungs), rhonchi ( On right side.) Cardiovascular: regular rate and rhythm, other (SVT) Gastrointestinal: normoactive bowel sounds, soft, non-tender, non-distended Integumentary: normal Extremities: no cyanosis, no edema, pulses normal, no ischemia or petechiae Neurologic: normal mental status, non-focal exam, pupils equal and round, motor strength normal and Psychiatric: mood appropriate, affect normal CBC and BMP: 12/14/16 07:07 12/14/16 07:07 ABG, PT/INR, D-dimer: ABG POC ABG pH 7.326 (7.35-7.45) L 12/09/16 12:02 POC ABG pCO2 37.7 (35-45) 12/09/16 12:02 POC ABG pO2 115 (80-105) H 12/09/16 12:02 POC ABG HCO3 19.7 12/09/16 12:02 POC ABG Total CO2 21 12/09/16 12:02 POC ABG O2 Sat 98 12/09/16 12:02 PT/INR, D-dimer PT 15.3 Sec. (12.2-14.9) H 12/08/16 19:00 INR 1.22 (0.87-1.13) H 12/08/16 19:00 D-Dimer 5507.36 ng/mlDDU (0-234) H 12/08/16 19:00 Abnormal lab findings: Abnormal Labs 12/04/16 12/04/16 12/04/16 01:19 01:36 02:21 WBC RBC Hgb Hct MCV MCHC RDW Plt Count Lymph % (Auto) [facility] # Seg Neutrophils % Seg Neuts % (Manual) Lymphocytes % (Manual) Monocytes % (Manual) Nucleated RBC % Seg Neutrophils # Seg Neutrophils # Man Lymphocytes # (Manual) Monocytes # (Manual) Percent Retic Haptoglobin PT INR Fibrinogen D-Dimer POC ABG pH 6.759 L POC ABG pCO2 POC ABG pO2 437 H Sodium Potassium Chloride Carbon Dioxide BUN Creatinine Glucose POC Glucose > 500 H Lactic Acid Calcium Phosphorus 15.70 H Magnesium 4.30 H Iron TIBC Total Bilirubin Direct Bilirubin AST ALT Alkaline Phosphatase Lactate Dehydrogenase CK-MB (CK-2) Troponin T C-Reactive Protein Total Protein Albumin Triglycerides Cholesterol HDL Cholesterol Vitamin B12 Urine Creatinine Urine Total Protein Heparin-induced Plt Ab Hep Bs Antibody, Quant Crossmatch 12/04/16 12/04/16 12/04/16 03:55 04:00 05:11 WBC RBC Hgb Hct MCV MCHC RDW Plt Count Lymph % (Auto) [facility] # Seg Neutrophils % Seg Neuts % (Manual) Lymphocytes % (Manual) Monocytes % (Manual) Nucleated RBC % Seg Neutrophils # Seg Neutrophils # Man Lymphocytes # (Manual) Monocytes # (Manual) Percent Retic Haptoglobin PT INR Fibrinogen D-Dimer POC ABG pH POC ABG pCO2 POC ABG pO2 Sodium Potassium Chloride 91.4 L Carbon Dioxide 8 L* BUN 55 H Creatinine 2.8 H Glucose 1610 H* POC Glucose > 500 H > 500 H Lactic Acid Calcium Phosphorus Magnesium Iron TIBC Total Bilirubin Direct Bilirubin AST ALT Alkaline Phosphatase Lactate Dehydrogenase CK-MB (CK-2) Troponin T C-Reactive Protein Total Protein Albumin Triglycerides Cholesterol HDL Cholesterol Vitamin B12 Urine Creatinine Urine Total Protein Heparin-induced Plt Ab Hep Bs Antibody, Quant Crossmatch 12/04/16 12/04/16 12/04/16 05:40 05:54 06:58 WBC RBC Hgb Hct MCV MCHC RDW Plt Count Lymph % (Auto) [facility] # Seg Neutrophils % Seg Neuts % (Manual) Lymphocytes % (Manual) Monocytes % (Manual) Nucleated RBC % Seg Neutrophils # Seg Neutrophils # Man Lymphocytes # (Manual) Monocytes # (Manual) Percent Retic Haptoglobin PT INR Fibrinogen D-Dimer POC ABG pH 7.154 L POC ABG pCO2 27.5 L POC ABG pO2 111 H Sodium Potassium Chloride Carbon Dioxide BUN Creatinine Glucose POC Glucose > 500 H > 500 H Lactic Acid Calcium Phosphorus Magnesium Iron TIBC Total Bilirubin Direct Bilirubin AST ALT Alkaline Phosphatase Lactate Dehydrogenase CK-MB (CK-2) Troponin T C-Reactive Protein Total Protein Albumin Triglycerides Cholesterol HDL Cholesterol Vitamin B12 Urine Creatinine Urine Total Protein Heparin-induced Plt Ab Hep Bs Antibody, Quant Crossmatch 12/04/16 12/04/16 12/04/16 07:49 07:55 07:55 WBC RBC Hgb Hct MCV MCHC RDW Plt Count Lymph % (Auto) [facility] # Seg Neutrophils % Seg Neuts % (Manual) Lymphocytes % (Manual) Monocytes % (Manual) Nucleated RBC % Seg Neutrophils # Seg Neutrophils # Man Lymphocytes # (Manual) Monocytes # (Manual) Percent Retic Haptoglobin PT INR Fibrinogen D-Dimer POC ABG pH POC ABG pCO2 POC ABG pO2 Sodium Potassium 3.3 L Chloride Carbon Dioxide 9 L* BUN 53 H Creatinine 2.9 H Glucose 1229 H* POC Glucose > 500 H Lactic Acid Calcium Phosphorus Magnesium Iron TIBC Total Bilirubin Direct Bilirubin AST ALT Alkaline Phosphatase Lactate Dehydrogenase CK-MB (CK-2) Troponin T 0.111 H* D C-Reactive Protein Total Protein Albumin Triglycerides 570 H Cholesterol 221 H HDL Cholesterol 37 L Vitamin B12 Urine Creatinine Urine Total Protein Heparin-induced Plt Ab Hep Bs Antibody, Quant Crossmatch 12/04/16 12/04/16 12/04/16 07:55 09:55 09:55 WBC RBC 2.90 L Hgb 8.5 L Hct 30.2 L D MCV 105 H D MCHC 28 L RDW 19.2 H Plt Count Lymph % (Auto) [facility] # Seg Neutrophils % Seg Neuts % (Manual) Lymphocytes % (Manual) 11.0 L Monocytes % (Manual) Nucleated RBC % Seg Neutrophils # Seg Neutrophils # Man Lymphocytes # (Manual) 0.6 L Monocytes # (Manual) Percent Retic Haptoglobin PT INR Fibrinogen D-Dimer POC ABG pH POC ABG pCO2 POC ABG pO2 Sodium Potassium 3.1 L Chloride Carbon Dioxide 7 L* BUN 51 H Creatinine 3.2 H Glucose 969 H* POC Glucose Lactic Acid Calcium 10.4 H D Phosphorus Magnesium Iron TIBC Total Bilirubin Direct Bilirubin AST ALT Alkaline Phosphatase Lactate Dehydrogenase CK-MB (CK-2) 4.6 H Troponin T 0.140 H* D C-Reactive Protein Total Protein Albumin Triglycerides Cholesterol HDL Cholesterol Vitamin B12 Urine Creatinine Urine Total Protein Heparin-induced Plt Ab Hep Bs Antibody, Quant Crossmatch 12/04/16 12/04/16 12/04/16 09:55 10:37 11:25 WBC RBC Hgb Hct MCV MCHC RDW Plt Count Lymph % (Auto) [facility] # Seg Neutrophils % Seg Neuts % (Manual) Lymphocytes % (Manual) Monocytes % (Manual) Nucleated RBC % Seg Neutrophils # Seg Neutrophils # Man Lymphocytes # (Manual) Monocytes # (Manual) Percent Retic Haptoglobin PT INR Fibrinogen D-Dimer POC ABG pH 7.215 L POC ABG pCO2 18.8 L POC ABG pO2 193 H Sodium Potassium Chloride Carbon Dioxide BUN Creatinine Glucose POC Glucose Lactic Acid Calcium Phosphorus Magnesium 3.70 H Iron TIBC Total Bilirubin Direct Bilirubin AST ALT Alkaline Phosphatase Lactate Dehydrogenase CK-MB (CK-2) Troponin T C-Reactive Protein Total Protein Albumin Triglycerides Cholesterol HDL Cholesterol Vitamin B12 Urine Creatinine 29.5 H Urine Total Protein 33 H Heparin-induced Plt Ab Hep Bs Antibody, Quant Crossmatch 12/04/16 12/04/16 12/04/16 12:00 12:48 13:00 WBC RBC Hgb Hct MCV MCHC RDW Plt Count Lymph % (Auto) [facility] # Seg Neutrophils % Seg Neuts % (Manual) Lymphocytes % (Manual) Monocytes % (Manual) Nucleated RBC % Seg Neutrophils # Seg Neutrophils # Man Lymphocytes # (Manual) Monocytes # (Manual) Percent Retic Haptoglobin PT INR Fibrinogen D-Dimer POC ABG pH POC ABG pCO2 POC ABG pO2 Sodium 149 H 150 H Potassium 3.2 L 3.2 L Chloride 109.1 H Carbon Dioxide 8 L* 8 L* BUN 52 H 49 H Creatinine 3.4 H 3.1 H Glucose 723 H* 574 H* POC Glucose Lactic Acid 18.80 H* Calcium Phosphorus Magnesium Iron TIBC Total Bilirubin Direct Bilirubin AST ALT Alkaline Phosphatase Lactate Dehydrogenase CK-MB (CK-2) Troponin T C-Reactive Protein Total Protein Albumin Triglycerides Cholesterol HDL Cholesterol Vitamin B12 Urine Creatinine Urine Total Protein Heparin-induced Plt Ab Hep Bs Antibody, Quant Crossmatch 12/04/16 12/04/16 12/04/16 13:01 14:41 16:06 WBC RBC Hgb Hct MCV MCHC RDW Plt Count Lymph % (Auto) [facility] # Seg Neutrophils % Seg Neuts % (Manual) Lymphocytes % (Manual) Monocytes % (Manual) Nucleated RBC % Seg Neutrophils # Seg Neutrophils # Man Lymphocytes # (Manual) Monocytes # (Manual) Percent Retic Haptoglobin PT INR Fibrinogen D-Dimer POC ABG pH POC ABG pCO2 POC ABG pO2 Sodium 151 H Potassium 3.2 L Chloride 108.1 H Carbon Dioxide 10 L BUN 49 H Creatinine 3.0 H Glucose 383 H POC Glucose 292 H Lactic Acid Calcium Phosphorus Magnesium Iron TIBC Total Bilirubin Direct Bilirubin AST ALT Alkaline Phosphatase Lactate Dehydrogenase CK-MB (CK-2) Troponin T C-Reactive Protein 3.50 H Total Protein Albumin Triglycerides Cholesterol HDL Cholesterol Vitamin B12 Urine Creatinine Urine Total Protein Heparin-induced Plt Ab Hep Bs Antibody, Quant Crossmatch 12/04/16 12/04/16 12/04/16 17:15 17:25 18:07 WBC RBC Hgb Hct MCV MCHC RDW Plt Count Lymph % (Auto) [facility] # Seg Neutrophils % Seg Neuts % (Manual) Lymphocytes % (Manual) Monocytes % (Manual) Nucleated RBC % Seg Neutrophils # Seg Neutrophils # Man Lymphocytes # (Manual) Monocytes # (Manual) Percent Retic Haptoglobin PT INR Fibrinogen D-Dimer POC ABG pH 7.255 L POC ABG pCO2 16.9 L POC ABG pO2 169 H Sodium Potassium Chloride Carbon Dioxide BUN Creatinine Glucose POC Glucose 246 H Lactic Acid 18.50 H* Calcium Phosphorus Magnesium Iron TIBC Total Bilirubin Direct Bilirubin AST ALT Alkaline Phosphatase Lactate Dehydrogenase CK-MB (CK-2) Troponin T C-Reactive Protein Total Protein Albumin Triglycerides Cholesterol HDL Cholesterol Vitamin B12 Urine Creatinine Urine Total Protein Heparin-induced Plt Ab Hep Bs Antibody, Quant Crossmatch 12/04/16 12/04/16 12/04/16 19:34 20:31 21:15 WBC RBC Hgb Hct MCV MCHC RDW Plt Count Lymph % (Auto) [facility] # Seg Neutrophils % Seg Neuts % (Manual) Lymphocytes % (Manual) Monocytes % (Manual) Nucleated RBC % Seg Neutrophils # Seg Neutrophils # Man Lymphocytes # (Manual) Monocytes # (Manual) Percent Retic Haptoglobin PT INR Fibrinogen D-Dimer POC ABG pH POC ABG pCO2 POC ABG pO2 Sodium Potassium Chloride Carbon Dioxide BUN Creatinine Glucose POC Glucose 189 H 126 H 139 H Lactic Acid Calcium Phosphorus Magnesium Iron TIBC Total Bilirubin Direct Bilirubin AST ALT Alkaline Phosphatase Lactate Dehydrogenase CK-MB (CK-2) Troponin T C-Reactive Protein Total Protein Albumin Triglycerides Cholesterol HDL Cholesterol Vitamin B12 Urine Creatinine Urine Total Protein Heparin-induced Plt Ab Hep Bs Antibody, Quant Crossmatch 12/04/16 12/04/16 12/04/16 21:25 22:37 23:35 WBC RBC Hgb Hct MCV MCHC RDW Plt Count Lymph % (Auto) [facility] # Seg Neutrophils % Seg Neuts % (Manual) Lymphocytes % (Manual) Monocytes % (Manual) Nucleated RBC % Seg Neutrophils # Seg Neutrophils # Man Lymphocytes # (Manual) Monocytes # (Manual) Percent Retic Haptoglobin PT INR Fibrinogen D-Dimer POC ABG pH 7.294 L POC ABG pCO2 16.7 L POC ABG pO2 169 H Sodium Potassium Chloride Carbon Dioxide BUN Creatinine Glucose POC Glucose 131 H 106 H Lactic Acid Calcium Phosphorus Magnesium Iron TIBC Total Bilirubin Direct Bilirubin AST ALT Alkaline Phosphatase Lactate Dehydrogenase CK-MB (CK-2) Troponin T C-Reactive Protein Total Protein Albumin Triglycerides Cholesterol HDL Cholesterol Vitamin B12 Urine Creatinine Urine Total Protein Heparin-induced Plt Ab Hep Bs Antibody, Quant Crossmatch 12/05/16 12/05/1617 02:40 02:50 02:50 WBC RBC Hgb Hct MCV MCHC RDW Plt Count Lymph % (Auto) [facility] # Seg Neutrophils % Seg Neuts % (Manual) Lymphocytes % (Manual) Monocytes % (Manual) Nucleated RBC % Seg Neutrophils # Seg Neutrophils # Man Lymphocytes # (Manual) Monocytes # (Manual) Percent Retic Haptoglobin PT INR Fibrinogen D-Dimer POC ABG pH POC ABG pCO2 POC ABG pO2 Sodium 151 H Potassium Chloride 113.8 H Carbon Dioxide 12 L BUN 46 H Creatinine 3.2 H Glucose 165 H POC Glucose 109 H Lactic Acid 9.80 H* Calcium 8.3 L Phosphorus Magnesium Iron TIBC Total Bilirubin Direct Bilirubin AST ALT Alkaline Phosphatase Lactate Dehydrogenase CK-MB (CK-2) Troponin T C-Reactive Protein Total Protein Albumin Triglycerides Cholesterol HDL Cholesterol Vitamin B12 Urine Creatinine Urine Total Protein Heparin-induced Plt Ab Hep Bs Antibody, Quant Crossmatch 12/05/16 12/05/16 12/05/16 04:01 04:30 04:30 WBC 19.1 H RBC 2.91 L Hgb 8.0 L Hct 25.4 L MCV MCHC RDW 17.8 H Plt Count Lymph % (Auto) [facility] # Seg Neutrophils % Seg Neuts % (Manual) 17.0 L Lymphocytes % (Manual) 7.0 L Monocytes % (Manual) Nucleated RBC % 3.0 H Seg Neutrophils # Seg Neutrophils # Man Lymphocytes # (Manual) Monocytes # (Manual) Percent Retic Haptoglobin PT INR Fibrinogen D-Dimer POC ABG pH POC ABG pCO2 POC ABG pO2 Sodium 152 H Potassium Chloride 113.5 H Carbon Dioxide 12 L BUN 47 H Creatinine 3.2 H Glucose 133 H POC Glucose 179 H Lactic Acid Calcium 8.3 L Phosphorus 1.00 L D Magnesium Iron TIBC Total Bilirubin Direct Bilirubin AST ALT Alkaline Phosphatase Lactate Dehydrogenase CK-MB (CK-2) Troponin T C-Reactive Protein Total Protein Albumin Triglycerides Cholesterol HDL Cholesterol Vitamin B12 Urine Creatinine Urine Total Protein Heparin-induced Plt Ab Hep Bs Antibody, Quant Crossmatch 12/05/16 12/05/16 12/05/16 05:32 08:01 08:48 WBC RBC Hgb Hct MCV MCHC RDW Plt Count Lymph % (Auto) [facility] # Seg Neutrophils % Seg Neuts % (Manual) Lymphocytes % (Manual) Monocytes % (Manual) Nucleated RBC % Seg Neutrophils # Seg Neutrophils # Man Lymphocytes # (Manual) Monocytes # (Manual) Percent Retic Haptoglobin PT INR Fibrinogen D-Dimer POC ABG pH POC ABG pCO2 17.6 L POC ABG pO2 62 L Sodium Potassium Chloride Carbon Dioxide BUN Creatinine Glucose POC Glucose 126 H 130 H Lactic Acid Calcium Phosphorus Magnesium Iron TIBC Total Bilirubin Direct Bilirubin AST ALT Alkaline Phosphatase Lactate Dehydrogenase CK-MB (CK-2) Troponin T C-Reactive Protein Total Protein Albumin Triglycerides Cholesterol HDL Cholesterol Vitamin B12 Urine Creatinine Urine Total Protein Heparin-induced Plt Ab Hep Bs Antibody, Quant Crossmatch 12/05/16 12/05/16 12/05/16 08:54 12:01 15:15 WBC RBC Hgb Hct MCV MCHC RDW Plt Count Lymph % (Auto) [facility] # Seg Neutrophils % Seg Neuts % (Manual) Lymphocytes % (Manual) Monocytes % (Manual) Nucleated RBC % Seg Neutrophils # Seg Neutrophils # Man Lymphocytes # (Manual) Monocytes # (Manual) Percent Retic Haptoglobin PT INR Fibrinogen D-Dimer POC ABG pH POC ABG pCO2 POC ABG pO2 Sodium Potassium Chloride Carbon Dioxide BUN Creatinine Glucose POC Glucose 157 H 117 H 166 H Lactic Acid Calcium Phosphorus Magnesium Iron TIBC Total Bilirubin Direct Bilirubin AST ALT Alkaline Phosphatase Lactate Dehydrogenase CK-MB (CK-2) Troponin T C-Reactive Protein Total Protein Albumin Triglycerides Cholesterol HDL Cholesterol Vitamin B12 Urine Creatinine Urine Total Protein Heparin-induced Plt Ab Hep Bs Antibody, Quant Crossmatch 12/05/16 12/05/16 12/05/16 16:10 16:55 17:08 WBC RBC Hgb Hct MCV MCHC RDW Plt Count Lymph % (Auto) [facility] # Seg Neutrophils % Seg Neuts % (Manual) Lymphocytes % (Manual) Monocytes % (Manual) Nucleated RBC % Seg Neutrophils # Seg Neutrophils # Man Lymphocytes # (Manual) Monocytes # (Manual) Percent Retic Haptoglobin PT INR Fibrinogen D-Dimer POC ABG pH POC ABG pCO2 POC ABG pO2 Sodium Potassium Chloride Carbon Dioxide BUN Creatinine Glucose POC Glucose 178 H 169 H Lactic Acid Calcium Phosphorus 5.00 H D Magnesium Iron TIBC Total Bilirubin Direct Bilirubin AST ALT Alkaline Phosphatase Lactate Dehydrogenase CK-MB (CK-2) Troponin T C-Reactive Protein Total Protein Albumin Triglycerides Cholesterol HDL Cholesterol Vitamin B12 Urine Creatinine Urine Total Protein Heparin-induced Plt Ab Hep Bs Antibody, Quant Crossmatch 12/05/16 12/05/16 12/05/16 18:08 18:51 20:04 WBC RBC Hgb Hct MCV MCHC RDW Plt Count Lymph % (Auto) [facility] # Seg Neutrophils % Seg Neuts % (Manual) Lymphocytes % (Manual) Monocytes % (Manual) Nucleated RBC % Seg Neutrophils # Seg Neutrophils # Man Lymphocytes # (Manual) Monocytes # (Manual) Percent Retic Haptoglobin PT INR Fibrinogen D-Dimer POC ABG pH POC ABG pCO2 POC ABG pO2 Sodium Potassium Chloride Carbon Dioxide BUN Creatinine Glucose POC Glucose 147 H 113 H 64 L Lactic Acid Calcium Phosphorus Magnesium Iron TIBC Total Bilirubin Direct Bilirubin AST ALT Alkaline Phosphatase Lactate Dehydrogenase CK-MB (CK-2) Troponin T C-Reactive Protein Total Protein Albumin Triglycerides Cholesterol HDL Cholesterol Vitamin B12 Urine Creatinine Urine Total Protein Heparin-induced Plt Ab Hep Bs Antibody, Quant Crossmatch 12/05/16 12/05/16 12/05/16 21:34 22:08 23:19 WBC RBC Hgb Hct MCV MCHC RDW Plt Count Lymph % (Auto) [facility] # Seg Neutrophils % Seg Neuts % (Manual) Lymphocytes % (Manual) Monocytes % (Manual) Nucleated RBC % Seg Neutrophils # Seg Neutrophils # Man Lymphocytes # (Manual) Monocytes # (Manual) Percent Retic Haptoglobin PT INR Fibrinogen D-Dimer POC ABG pH 7.303 L POC ABG pCO2 18.3 L POC ABG pO2 73 L Sodium Potassium Chloride Carbon Dioxide BUN Creatinine Glucose POC Glucose 141 H 200 H Lactic Acid Calcium Phosphorus Magnesium Iron TIBC Total Bilirubin Direct Bilirubin AST ALT Alkaline Phosphatase Lactate Dehydrogenase CK-MB (CK-2) Troponin T C-Reactive Protein Total Protein Albumin Triglycerides Cholesterol HDL Cholesterol Vitamin B12 Urine Creatinine Urine Total Protein Heparin-induced Plt Ab Hep Bs Antibody, Quant Crossmatch 12/06/16 12/06/16 12/06/16 00:01 01:09 02:00 WBC RBC Hgb Hct MCV MCHC RDW Plt Count Lymph % (Auto) [facility] # Seg Neutrophils % Seg Neuts % (Manual) Lymphocytes % (Manual) Monocytes % (Manual) Nucleated RBC % Seg Neutrophils # Seg Neutrophils # Man Lymphocytes # (Manual) Monocytes # (Manual) Percent Retic Haptoglobin PT INR Fibrinogen D-Dimer POC ABG pH POC ABG pCO2 POC ABG pO2 Sodium Potassium Chloride Carbon Dioxide BUN Creatinine Glucose POC Glucose 211 H 116 H 57 L Lactic Acid Calcium Phosphorus Magnesium Iron TIBC Total Bilirubin Direct Bilirubin AST ALT Alkaline Phosphatase Lactate Dehydrogenase CK-MB (CK-2) Troponin T C-Reactive Protein Total Protein Albumin Triglycerides Cholesterol HDL Cholesterol Vitamin B12 Urine Creatinine Urine Total Protein Heparin-induced Plt Ab Hep Bs Antibody, Quant Crossmatch 12/06/16 12/06/16 12/06/16 04:14 04:50 04:50 WBC RBC 2.68 L Hgb 7.6 L Hct 23.2 L MCV MCHC RDW 18.9 H Plt Count Lymph % (Auto) [facility] # Seg Neutrophils % Seg Neuts % (Manual) 32.0 L Lymphocytes % (Manual) Monocytes % (Manual) Nucleated RBC % 3.0 H Seg Neutrophils # Seg Neutrophils # Man Lymphocytes # (Manual) 0.9 L Monocytes # (Manual) Percent Retic Haptoglobin PT INR Fibrinogen D-Dimer POC ABG pH POC ABG pCO2 POC ABG pO2 Sodium Potassium 5.8 H D Chloride 111.5 H Carbon Dioxide 11 L BUN 52 H Creatinine 3.8 H Glucose 186 H POC Glucose 133 H Lactic Acid Calcium 6.5 L D Phosphorus 5.80 H Magnesium Iron TIBC Total Bilirubin Direct Bilirubin AST ALT Alkaline Phosphatase Lactate Dehydrogenase CK-MB (CK-2) Troponin T C-Reactive Protein Total Protein Albumin Triglycerides Cholesterol HDL Cholesterol Vitamin B12 Urine Creatinine Urine Total Protein Heparin-induced Plt Ab Hep Bs Antibody, Quant Crossmatch 12/06/16 12/06/16 12/06/16 04:50 05:04 05:07 WBC RBC Hgb Hct MCV MCHC RDW Plt Count Lymph % (Auto) [facility] # Seg Neutrophils % Seg Neuts % (Manual) Lymphocytes % (Manual) Monocytes % (Manual) Nucleated RBC % Seg Neutrophils # Seg Neutrophils # Man Lymphocytes # (Manual) Monocytes # (Manual) Percent Retic Haptoglobin PT INR Fibrinogen D-Dimer POC ABG pH POC ABG pCO2 13.0 L POC ABG pO2 111 H Sodium Potassium Chloride Carbon Dioxide BUN Creatinine Glucose POC Glucose 127 H Lactic Acid 6.50 H* Calcium Phosphorus Magnesium Iron TIBC Total Bilirubin Direct Bilirubin AST ALT Alkaline Phosphatase Lactate Dehydrogenase CK-MB (CK-2) Troponin T C-Reactive Protein Total Protein Albumin Triglycerides Cholesterol HDL Cholesterol Vitamin B12 Urine Creatinine Urine Total Protein Heparin-induced Plt Ab Hep Bs Antibody, Quant Crossmatch 12/06/16 12/06/16 12/06/16 06:10 06:54 07:46 WBC RBC Hgb Hct MCV MCHC RDW Plt Count Lymph % (Auto) [facility] # Seg Neutrophils % Seg Neuts % (Manual) Lymphocytes % (Manual) Monocytes % (Manual) Nucleated RBC % Seg Neutrophils # Seg Neutrophils # Man Lymphocytes # (Manual) Monocytes # (Manual) Percent Retic Haptoglobin PT INR Fibrinogen D-Dimer POC ABG pH POC ABG pCO2 POC ABG pO2 Sodium Potassium Chloride Carbon Dioxide BUN Creatinine Glucose POC Glucose 219 H 237 H 158 H Lactic Acid Calcium Phosphorus Magnesium Iron TIBC Total Bilirubin Direct Bilirubin AST ALT Alkaline Phosphatase Lactate Dehydrogenase CK-MB (CK-2) Troponin T C-Reactive Protein Total Protein Albumin Triglycerides Cholesterol HDL Cholesterol Vitamin B12 Urine Creatinine Urine Total Protein Heparin-induced Plt Ab Hep Bs Antibody, Quant Crossmatch 12/06/16 12/06/16 12/06/16 08:55 10:27 11:58 WBC RBC Hgb Hct MCV MCHC RDW Plt Count Lymph % (Auto) [facility] # Seg Neutrophils % Seg Neuts % (Manual) Lymphocytes % (Manual) Monocytes % (Manual) Nucleated RBC % Seg Neutrophils # Seg Neutrophils # Man Lymphocytes # (Manual) Monocytes # (Manual) Percent Retic Haptoglobin PT INR Fibrinogen D-Dimer POC ABG pH POC ABG pCO2 POC ABG pO2 Sodium Potassium Chloride Carbon Dioxide BUN Creatinine Glucose POC Glucose 40 L 128 H 144 H Lactic Acid Calcium Phosphorus Magnesium Iron TIBC Total Bilirubin Direct Bilirubin AST ALT Alkaline Phosphatase Lactate Dehydrogenase CK-MB (CK-2) Troponin T C-Reactive Protein Total Protein Albumin Triglycerides Cholesterol HDL Cholesterol Vitamin B12 Urine Creatinine Urine Total Protein Heparin-induced Plt Ab Hep Bs Antibody, Quant Crossmatch 12/06/16 12/06/16 12/06/16 18:14 19:00 19:06 WBC RBC Hgb Hct MCV MCHC RDW Plt Count Lymph % (Auto) [facility] # Seg Neutrophils % Seg Neuts % (Manual) Lymphocytes % (Manual) Monocytes % (Manual) Nucleated RBC % Seg Neutrophils # Seg Neutrophils # Man Lymphocytes # (Manual) Monocytes # (Manual) Percent Retic Haptoglobin PT INR Fibrinogen D-Dimer POC ABG pH POC ABG pCO2 POC ABG pO2 Sodium 149 H Potassium 5.6 H Chloride 115.9 H Carbon Dioxide 13 L BUN 56 H Creatinine 4.3 H Glucose 124 H POC Glucose 55 L 148 H Lactic Acid Calcium 6.0 L Phosphorus Magnesium Iron TIBC Total Bilirubin Direct Bilirubin AST ALT Alkaline Phosphatase Lactate Dehydrogenase CK-MB (CK-2) Troponin T C-Reactive Protein Total Protein Albumin Triglycerides Cholesterol HDL Cholesterol Vitamin B12 Urine Creatinine Urine Total Protein Heparin-induced Plt Ab Hep Bs Antibody, Quant Crossmatch 12/06/16 12/06/16 12/07/16 21:24 21:51 02:32 WBC RBC Hgb Hct MCV MCHC RDW Plt Count Lymph % (Auto) [facility] # Seg Neutrophils % Seg Neuts % (Manual) Lymphocytes % (Manual) Monocytes % (Manual) Nucleated RBC % Seg Neutrophils # Seg Neutrophils # Man Lymphocytes # (Manual) Monocytes # (Manual) Percent Retic Haptoglobin PT INR Fibrinogen D-Dimer POC ABG pH POC ABG pCO2 17.0 L POC ABG pO2 142 H Sodium Potassium Chloride Carbon Dioxide BUN Creatinine Glucose POC Glucose 107 H 175 H Lactic Acid Calcium Phosphorus Magnesium Iron TIBC Total Bilirubin Direct Bilirubin AST ALT Alkaline Phosphatase Lactate Dehydrogenase CK-MB (CK-2) Troponin T C-Reactive Protein Total Protein Albumin Triglycerides Cholesterol HDL Cholesterol Vitamin B12 Urine Creatinine Urine Total Protein Heparin-induced Plt Ab Hep Bs Antibody, Quant Crossmatch 12/07/16 12/07/16 12/07/16 05:01 05:25 06:00 WBC RBC 2.52 L Hgb 7.1 L Hct 22.1 L MCV MCHC RDW 19.3 H Plt Count 90 L Lymph % (Auto) [facility] # Seg Neutrophils % Seg Neuts % (Manual) 75.0 H Lymphocytes % (Manual) 11.0 L Monocytes % (Manual) Nucleated RBC % Seg Neutrophils # Seg Neutrophils # Man Lymphocytes # (Manual) 0.7 L Monocytes # (Manual) Percent Retic Haptoglobin PT INR Fibrinogen D-Dimer POC ABG pH 7.300 L POC ABG pCO2 17.1 L POC ABG pO2 140 H Sodium Potassium Chloride Carbon Dioxide BUN Creatinine Glucose POC Glucose 279 H Lactic Acid Calcium Phosphorus Magnesium Iron TIBC Total Bilirubin Direct Bilirubin AST ALT Alkaline Phosphatase Lactate Dehydrogenase CK-MB (CK-2) Troponin T C-Reactive Protein Total Protein Albumin Triglycerides Cholesterol HDL Cholesterol Vitamin B12 Urine Creatinine Urine Total Protein Heparin-induced Plt Ab Hep Bs Antibody, Quant Crossmatch 12/07/16 12/07/16 12/07/16 06:00 06:00 07:30 WBC RBC Hgb Hct MCV MCHC RDW Plt Count Lymph % (Auto) [facility] # Seg Neutrophils % Seg Neuts % (Manual) Lymphocytes % (Manual) Monocytes % (Manual) Nucleated RBC % Seg Neutrophils # Seg Neutrophils # Man Lymphocytes # (Manual) Monocytes # (Manual) Percent Retic Haptoglobin PT INR Fibrinogen D-Dimer POC ABG pH POC ABG pCO2 POC ABG pO2 Sodium Potassium Chloride Carbon Dioxide BUN Creatinine Glucose POC Glucose Lactic Acid 6.90 H* Calcium Phosphorus 6.80 H Magnesium Iron TIBC Total Bilirubin Direct Bilirubin AST ALT Alkaline Phosphatase Lactate Dehydrogenase CK-MB (CK-2) Troponin T C-Reactive Protein 39.40 H Total Protein Albumin Triglycerides Cholesterol HDL Cholesterol Vitamin B12 Urine Creatinine Urine Total Protein Heparin-induced Plt Ab Hep Bs Antibody, Quant Crossmatch 12/07/16 12/07/16 12/07/16 08:40 10:53 14:31 WBC RBC Hgb Hct MCV MCHC RDW Plt Count Lymph % (Auto) [facility] # Seg Neutrophils % Seg Neuts % (Manual) Lymphocytes % (Manual) Monocytes % (Manual) Nucleated RBC % Seg Neutrophils # Seg Neutrophils # Man Lymphocytes # (Manual) Monocytes # (Manual) Percent Retic Haptoglobin PT INR Fibrinogen D-Dimer POC ABG pH POC ABG pCO2 POC ABG pO2 Sodium Potassium 7.0 H* D Chloride 112.4 H Carbon Dioxide 8 L* BUN 61 H Creatinine 5.1 H Glucose 213 H POC Glucose 353 H 52 L Lactic Acid Calcium 5.8 L* Phosphorus Magnesium Iron TIBC Total Bilirubin Direct Bilirubin AST ALT Alkaline Phosphatase Lactate Dehydrogenase CK-MB (CK-2) Troponin T C-Reactive Protein Total Protein Albumin Triglycerides Cholesterol HDL Cholesterol Vitamin B12 Urine Creatinine Urine Total Protein Heparin-induced Plt Ab Hep Bs Antibody, Quant Crossmatch 12/07/16 12/07/16 12/07/16 14:45 15:33 16:22 WBC RBC Hgb Hct MCV MCHC RDW Plt Count Lymph % (Auto) [facility] # Seg Neutrophils % Seg Neuts % (Manual) Lymphocytes % (Manual) Monocytes % (Manual) Nucleated RBC % Seg Neutrophils # Seg Neutrophils # Man Lymphocytes # (Manual) Monocytes # (Manual) Percent Retic Haptoglobin PT 17.5 H INR 1.44 H Fibrinogen D-Dimer POC ABG pH POC ABG pCO2 POC ABG pO2 Sodium Potassium Chloride Carbon Dioxide BUN Creatinine Glucose POC Glucose < 40 L 118 H Lactic Acid Calcium Phosphorus Magnesium Iron TIBC Total Bilirubin Direct Bilirubin AST ALT Alkaline Phosphatase Lactate Dehydrogenase CK-MB (CK-2) Troponin T C-Reactive Protein Total Protein Albumin Triglycerides Cholesterol HDL Cholesterol Vitamin B12 Urine Creatinine Urine Total Protein Heparin-induced Plt Ab Hep Bs Antibody, Quant Crossmatch 12/07/16 12/07/16 12/07/16 21:35 21:35 21:58 WBC RBC Hgb Hct MCV MCHC RDW Plt Count Lymph % (Auto) [facility] # Seg Neutrophils % Seg Neuts % (Manual) Lymphocytes % (Manual) Monocytes % (Manual) Nucleated RBC % Seg Neutrophils # Seg Neutrophils # Man Lymphocytes # (Manual) Monocytes # (Manual) Percent Retic Haptoglobin PT INR Fibrinogen D-Dimer POC ABG pH POC ABG pCO2 POC ABG pO2 Sodium 150 H Potassium 3.3 L D Chloride 111.4 H Carbon Dioxide 21 L D BUN 22 H Creatinine 2.6 H Glucose 23 L* POC Glucose < 40 L Lactic Acid Calcium Phosphorus Magnesium Iron TIBC Total Bilirubin 1.40 H Direct Bilirubin 0.9 H AST 94 H ALT 142 H Alkaline Phosphatase 249 H Lactate Dehydrogenase CK-MB (CK-2) Troponin T C-Reactive Protein Total Protein 4.6 L D Albumin 2.1 L Triglycerides Cholesterol HDL Cholesterol Vitamin B12 Urine Creatinine Urine Total Protein Heparin-induced Plt Ab Hep Bs Antibody, Quant Crossmatch 12/07/16 12/08/16 12/08/16 23:31 04:43 04:50 WBC RBC 2.35 L Hgb 6.6 L Hct 20.1 L MCV MCHC RDW 17.8 H Plt Count 48 L Lymph % (Auto) [facility] # Seg Neutrophils % Seg Neuts % (Manual) Lymphocytes % (Manual) Monocytes % (Manual) Nucleated RBC % Seg Neutrophils # Seg Neutrophils # Man Lymphocytes # (Manual) 0.9 L Monocytes # (Manual) Percent Retic Haptoglobin PT INR Fibrinogen D-Dimer POC ABG pH 7.586 H POC ABG pCO2 17.7 L POC ABG pO2 150 H Sodium Potassium Chloride Carbon Dioxide BUN Creatinine Glucose POC Glucose 42 L Lactic Acid Calcium Phosphorus Magnesium Iron TIBC Total Bilirubin Direct Bilirubin AST ALT Alkaline Phosphatase Lactate Dehydrogenase CK-MB (CK-2) Troponin T C-Reactive Protein Total Protein Albumin Triglycerides Cholesterol HDL Cholesterol Vitamin B12 Urine Creatinine Urine Total Protein Heparin-induced Plt Ab Hep Bs Antibody, Quant Crossmatch 12/08/16 12/08/16 12/08/16 04:50 04:59 06:54 WBC RBC Hgb Hct MCV MCHC RDW Plt Count Lymph % (Auto) [facility] # Seg Neutrophils % Seg Neuts % (Manual) Lymphocytes % (Manual) Monocytes % (Manual) Nucleated RBC % Seg Neutrophils # Seg Neutrophils # Man Lymphocytes # (Manual) Monocytes # (Manual) Percent Retic Haptoglobin PT INR Fibrinogen D-Dimer POC ABG pH POC ABG pCO2 POC ABG pO2 Sodium 149 H Potassium 3.2 L Chloride 111.8 H Carbon Dioxide 17 L BUN 26 H Creatinine 3.4 H Glucose 163 H POC Glucose 204 H 203 H Lactic Acid Calcium 7.7 L Phosphorus 2.40 L D Magnesium Iron TIBC Total Bilirubin Direct Bilirubin AST ALT Alkaline Phosphatase Lactate Dehydrogenase CK-MB (CK-2) Troponin T C-Reactive Protein Total Protein Albumin Triglycerides Cholesterol HDL Cholesterol Vitamin B12 Urine Creatinine Urine Total Protein Heparin-induced Plt Ab Hep Bs Antibody, Quant Crossmatch 12/08/16 12/08/16 12/08/16 08:04 08:46 08:46 WBC RBC Hgb Hct MCV MCHC RDW Plt Count Lymph % (Auto) [facility] # Seg Neutrophils % Seg Neuts % (Manual) Lymphocytes % (Manual) Monocytes % (Manual) Nucleated RBC % Seg Neutrophils # Seg Neutrophils # Man Lymphocytes # (Manual) Monocytes # (Manual) Percent Retic Haptoglobin PT INR Fibrinogen D-Dimer POC ABG pH POC ABG pCO2 POC ABG pO2 Sodium 147 H Potassium 2.9 L* Chloride 110.6 H Carbon Dioxide 17 L BUN 28 H Creatinine 3.6 H Glucose 127 H POC Glucose 205 H Lactic Acid Calcium 7.3 L Phosphorus Magnesium Iron TIBC Total Bilirubin Direct Bilirubin AST ALT Alkaline Phosphatase Lactate Dehydrogenase CK-MB (CK-2) Troponin T C-Reactive Protein Total Protein Albumin Triglycerides Cholesterol HDL Cholesterol Vitamin B12 Urine Creatinine Urine Total Protein Heparin-induced Plt Ab Hep Bs Antibody, Quant Crossmatch See Detail 12/08/16 12/08/16 12/08/16 12:36 19:00 19:00 WBC RBC Hgb Hct MCV MCHC RDW Plt Count Lymph % (Auto) [facility] # Seg Neutrophils % Seg Neuts % (Manual) Lymphocytes % (Manual) Monocytes % (Manual) Nucleated RBC % Seg Neutrophils # Seg Neutrophils # Man Lymphocytes # (Manual) Monocytes # (Manual) Percent Retic Haptoglobin PT 15.3 H INR 1.22 H Fibrinogen 563 H D-Dimer 5507.36 H POC ABG pH POC ABG pCO2 POC ABG pO2 Sodium Potassium Chloride Carbon Dioxide 21 L BUN Creatinine 1.7 H D Glucose 155 H POC Glucose 181 H Lactic Acid Calcium Phosphorus Magnesium Iron TIBC Total Bilirubin Direct Bilirubin AST ALT Alkaline Phosphatase Lactate Dehydrogenase CK-MB (CK-2) Troponin T C-Reactive Protein Total Protein Albumin Triglycerides Cholesterol HDL Cholesterol Vitamin B12 Urine Creatinine Urine Total Protein Heparin-induced Plt Ab Hep Bs Antibody, Quant Crossmatch 12/08/16 12/08/16 12/08/16 19:00 19:00 21:30 WBC RBC 2.76 L Hgb 7.8 L Hct 23.7 L MCV MCHC RDW 17.0 H Plt Count 38 L Lymph % (Auto) [facility] # Seg Neutrophils % Seg Neuts % (Manual) Lymphocytes % (Manual) Monocytes % (Manual) Nucleated RBC % Seg Neutrophils # Seg Neutrophils # Man Lymphocytes # (Manual) Monocytes # (Manual) Percent Retic Haptoglobin 271 H PT INR Fibrinogen D-Dimer POC ABG pH POC ABG pCO2 POC ABG pO2 Sodium Potassium Chloride Carbon Dioxide BUN Creatinine Glucose POC Glucose Lactic Acid Calcium Phosphorus Magnesium Iron TIBC Total Bilirubin Direct Bilirubin AST ALT Alkaline Phosphatase Lactate Dehydrogenase 382 H CK-MB (CK-2) Troponin T C-Reactive Protein Total Protein Albumin Triglycerides Cholesterol HDL Cholesterol Vitamin B12 Urine Creatinine Urine Total Protein Heparin-induced Plt Ab Hep Bs Antibody, Quant Crossmatch 12/08/16 12/08/16 12/09/16 23:32 23:44 05:22 WBC RBC Hgb Hct MCV MCHC RDW Plt Count Lymph % (Auto) [facility] # Seg Neutrophils % Seg Neuts % (Manual) Lymphocytes % (Manual) Monocytes % (Manual) Nucleated RBC % Seg Neutrophils # Seg Neutrophils # Man Lymphocytes # (Manual) Monocytes # (Manual) Percent Retic Haptoglobin PT INR Fibrinogen D-Dimer POC ABG pH 7.498 H POC ABG pCO2 25.2 L POC ABG pO2 137 H Sodium Potassium Chloride Carbon Dioxide BUN Creatinine Glucose POC Glucose 311 H 113 H Lactic Acid Calcium Phosphorus Magnesium Iron TIBC Total Bilirubin Direct Bilirubin AST ALT Alkaline Phosphatase Lactate Dehydrogenase CK-MB (CK-2) Troponin T C-Reactive Protein Total Protein Albumin Triglycerides Cholesterol HDL Cholesterol Vitamin B12 Urine Creatinine Urine Total Protein Heparin-induced Plt Ab Hep Bs Antibody, Quant Crossmatch 12/09/16 12/09/16 12/09/16 06:00 11:29 11:59 WBC RBC Hgb Hct MCV MCHC RDW Plt Count Lymph % (Auto) [facility] # Seg Neutrophils % Seg Neuts % (Manual) Lymphocytes % (Manual) Monocytes % (Manual) Nucleated RBC % Seg Neutrophils # Seg Neutrophils # Man Lymphocytes # (Manual) Monocytes # (Manual) Percent Retic 0.23 L Haptoglobin PT INR Fibrinogen D-Dimer POC ABG pH POC ABG pCO2 POC ABG pO2 Sodium Potassium Chloride 110.2 H Carbon Dioxide 18 L BUN 19 H Creatinine 2.5 H Glucose 105 H POC Glucose 254 H Lactic Acid Calcium Phosphorus 2.00 L Magnesium Iron TIBC Total Bilirubin Direct Bilirubin AST ALT Alkaline Phosphatase Lactate Dehydrogenase CK-MB (CK-2) Troponin T C-Reactive Protein Total Protein Albumin Triglycerides Cholesterol HDL Cholesterol Vitamin B12 Urine Creatinine Urine Total Protein Heparin-induced Plt Ab Hep Bs Antibody, Quant Crossmatch 12/09/16 12/09/16 12/09/16 12:02 13:27 13:27 WBC RBC Hgb Hct MCV MCHC RDW Plt Count Lymph % (Auto) [facility] # Seg Neutrophils % Seg Neuts % (Manual) Lymphocytes % (Manual) Monocytes % (Manual) Nucleated RBC % Seg Neutrophils # Seg Neutrophils # Man Lymphocytes # (Manual) Monocytes # (Manual) Percent Retic Haptoglobin PT INR Fibrinogen D-Dimer POC ABG pH 7.326 L POC ABG pCO2 POC ABG pO2 115 H Sodium Potassium Chloride Carbon Dioxide BUN Creatinine Glucose POC Glucose Lactic Acid Calcium Phosphorus Magnesium Iron 15 L TIBC 134 L Total Bilirubin Direct Bilirubin AST ALT Alkaline Phosphatase Lactate Dehydrogenase CK-MB (CK-2) Troponin T C-Reactive Protein Total Protein Albumin Triglycerides Cholesterol HDL Cholesterol Vitamin B12 > 2000 H Urine Creatinine Urine Total Protein Heparin-induced Plt Ab Hep Bs Antibody, Quant Crossmatch 12/09/16 12/09/16 12/09/16 13:27 13:27 16:28 WBC RBC Hgb Hct MCV MCHC RDW Plt Count Lymph % (Auto) [facility] # Seg Neutrophils % Seg Neuts % (Manual) Lymphocytes % (Manual) Monocytes % (Manual) Nucleated RBC % Seg Neutrophils # Seg Neutrophils # Man Lymphocytes # (Manual) Monocytes # (Manual) Percent Retic Haptoglobin PT INR Fibrinogen D-Dimer POC ABG pH POC ABG pCO2 POC ABG pO2 Sodium Potassium Chloride Carbon Dioxide BUN Creatinine Glucose POC Glucose 199 H Lactic Acid Calcium Phosphorus Magnesium Iron TIBC Total Bilirubin Direct Bilirubin AST ALT Alkaline Phosphatase Lactate Dehydrogenase CK-MB (CK-2) Troponin T C-Reactive Protein Total Protein Albumin Triglycerides Cholesterol HDL Cholesterol Vitamin B12 Urine Creatinine Urine Total Protein Heparin-induced Plt Ab Weak positive H Hep Bs Antibody, Quant <5 L Crossmatch 12/09/16 12/09/16 12/10/16 23:27 Unknown 05:36 WBC 11.3 H RBC 2.92 L Hgb 8.4 L Hct 25.3 L MCV MCHC RDW 16.9 H Plt Count 31 L Lymph % (Auto) [facility] # Seg Neutrophils % Seg Neuts % (Manual) Lymphocytes % (Manual) Monocytes % (Manual) Nucleated RBC % Seg Neutrophils # Seg Neutrophils # Man Lymphocytes # (Manual) Monocytes # (Manual) Percent Retic Haptoglobin PT INR Fibrinogen D-Dimer POC ABG pH POC ABG pCO2 POC ABG pO2 Sodium Potassium Chloride Carbon Dioxide BUN Creatinine Glucose POC Glucose 247 H 248 H Lactic Acid Calcium Phosphorus Magnesium Iron TIBC Total Bilirubin Direct Bilirubin AST ALT Alkaline Phosphatase Lactate Dehydrogenase CK-MB (CK-2) Troponin T C-Reactive Protein Total Protein Albumin Triglycerides Cholesterol HDL Cholesterol Vitamin B12 Urine Creatinine Urine Total Protein Heparin-induced Plt Ab Hep Bs Antibody, Quant Crossmatch 12/10/16 12/10/16 12/10/16 09:55 09:55 11:49 WBC 21.2 H RBC 3.37 L Hgb 9.6 L Hct 29.5 L MCV MCHC RDW 16.3 H Plt Count 102 L D Lymph % (Auto) [facility] # Seg Neutrophils % Seg Neuts % (Manual) Lymphocytes % (Manual) Monocytes % (Manual) Nucleated RBC % Seg Neutrophils # Seg Neutrophils # Man Lymphocytes # (Manual) Monocytes # (Manual) Percent Retic Haptoglobin PT INR Fibrinogen D-Dimer POC ABG pH POC ABG pCO2 POC ABG pO2 Sodium Potassium Chloride 107.4 H Carbon Dioxide 21 L BUN 37 H Creatinine 4.2 H D Glucose 174 H POC Glucose 265 H Lactic Acid Calcium Phosphorus Magnesium Iron TIBC Total Bilirubin Direct Bilirubin AST ALT Alkaline Phosphatase Lactate Dehydrogenase CK-MB (CK-2) Troponin T C-Reactive Protein Total Protein Albumin Triglycerides Cholesterol HDL Cholesterol Vitamin B12 Urine Creatinine Urine Total Protein Heparin-induced Plt Ab Hep Bs Antibody, Quant Crossmatch 12/10/16 12/10/16 12/11/16 17:56 23:44 04:30 WBC 23.5 H RBC 3.46 L Hgb 9.7 L Hct 30.1 L MCV MCHC RDW 16.4 H Plt Count 115 L Lymph % (Auto) [facility] # Seg Neutrophils % Seg Neuts % (Manual) 84.0 H Lymphocytes % (Manual) 5.0 L Monocytes % (Manual) 10.0 H Nucleated RBC % 1.0 H Seg Neutrophils # Seg Neutrophils # Man 19.7 H Lymphocytes # (Manual) Monocytes # (Manual) 2.4 H Percent Retic Haptoglobin PT INR Fibrinogen D-Dimer POC ABG pH POC ABG pCO2 POC ABG pO2 Sodium Potassium Chloride Carbon Dioxide BUN Creatinine Glucose POC Glucose 118 H 378 H Lactic Acid Calcium Phosphorus Magnesium Iron TIBC Total Bilirubin Direct Bilirubin AST ALT Alkaline Phosphatase Lactate Dehydrogenase CK-MB (CK-2) Troponin T C-Reactive Protein Total Protein Albumin Triglycerides Cholesterol HDL Cholesterol Vitamin B12 Urine Creatinine Urine Total Protein Heparin-induced Plt Ab Hep Bs Antibody, Quant Crossmatch 12/11/16 12/11/16 12/11/16 04:30 05:33 12:48 WBC RBC Hgb Hct MCV MCHC RDW Plt Count Lymph % (Auto) [facility] # Seg Neutrophils % Seg Neuts % (Manual) Lymphocytes % (Manual) Monocytes % (Manual) Nucleated RBC % Seg Neutrophils # Seg Neutrophils # Man Lymphocytes # (Manual) Monocytes # (Manual) Percent Retic Haptoglobin PT INR Fibrinogen D-Dimer POC ABG pH POC ABG pCO2 POC ABG pO2 Sodium Potassium Chloride Carbon Dioxide 21 L BUN 50 H Creatinine 4.8 H Glucose 303 H POC Glucose 335 H 325 H Lactic Acid Calcium 8.2 L Phosphorus Magnesium Iron TIBC Total Bilirubin Direct Bilirubin AST ALT Alkaline Phosphatase Lactate Dehydrogenase CK-MB (CK-2) Troponin T C-Reactive Protein Total Protein Albumin Triglycerides Cholesterol HDL Cholesterol Vitamin B12 Urine Creatinine Urine Total Protein Heparin-induced Plt Ab Hep Bs Antibody, Quant Crossmatch 12/11/16 12/11/16 12/12/16 17:49 21:16 00:49 WBC RBC Hgb Hct MCV MCHC RDW Plt Count Lymph % (Auto) [facility] # Seg Neutrophils % Seg Neuts % (Manual) Lymphocytes % (Manual) Monocytes % (Manual) Nucleated RBC % Seg Neutrophils # Seg Neutrophils # Man Lymphocytes # (Manual) Monocytes # (Manual) Percent Retic Haptoglobin PT INR Fibrinogen D-Dimer POC ABG pH POC ABG pCO2 POC ABG pO2 Sodium Potassium Chloride Carbon Dioxide BUN Creatinine Glucose POC Glucose 368 H 162 H 225 H Lactic Acid Calcium Phosphorus Magnesium Iron TIBC Total Bilirubin Direct Bilirubin AST ALT Alkaline Phosphatase Lactate Dehydrogenase CK-MB (CK-2) Troponin T C-Reactive Protein Total Protein Albumin Triglycerides Cholesterol HDL Cholesterol Vitamin B12 Urine Creatinine Urine Total Protein Heparin-induced Plt Ab Hep Bs Antibody, Quant Crossmatch 12/12/16 12/12/16 12/12/16 06:09 07:52 08:18 WBC 24.1 H RBC 3.16 L Hgb 9.0 L Hct 29.4 L MCV MCHC RDW 16.6 H Plt Count 96 L Lymph % (Auto) [facility] # Seg Neutrophils % Seg Neuts % (Manual) 75.0 H Lymphocytes % (Manual) Monocytes % (Manual) Nucleated RBC % Seg Neutrophils # Seg Neutrophils # Man 18.1 H Lymphocytes # (Manual) Monocytes # (Manual) 1.4 H Percent Retic Haptoglobin PT INR Fibrinogen D-Dimer POC ABG pH POC ABG pCO2 POC ABG pO2 Sodium Potassium Chloride Carbon Dioxide BUN Creatinine Glucose POC Glucose 428 H 418 H Lactic Acid Calcium Phosphorus Magnesium Iron TIBC Total Bilirubin Direct Bilirubin AST ALT Alkaline Phosphatase Lactate Dehydrogenase CK-MB (CK-2) Troponin T C-Reactive Protein Total Protein Albumin Triglycerides Cholesterol HDL Cholesterol Vitamin B12 Urine Creatinine Urine Total Protein Heparin-induced Plt Ab Hep Bs Antibody, Quant Crossmatch 12/12/16 12/12/16 12/12/16 08:18 11:31 17:03 WBC RBC Hgb Hct MCV MCHC RDW Plt Count Lymph % (Auto) [facility] # Seg Neutrophils % Seg Neuts % (Manual) Lymphocytes % (Manual) Monocytes % (Manual) Nucleated RBC % Seg Neutrophils # Seg Neutrophils # Man Lymphocytes # (Manual) Monocytes # (Manual) Percent Retic Haptoglobin PT INR Fibrinogen D-Dimer POC ABG pH POC ABG pCO2 POC ABG pO2 Sodium Potassium Chloride Carbon Dioxide 12 L D BUN 41 H Creatinine 4.5 H Glucose 369 H POC Glucose 212 H 422 H Lactic Acid Calcium Phosphorus Magnesium Iron TIBC Total Bilirubin Direct Bilirubin AST ALT Alkaline Phosphatase Lactate Dehydrogenase CK-MB (CK-2) Troponin T C-Reactive Protein Total Protein Albumin Triglycerides Cholesterol HDL Cholesterol Vitamin B12 Urine Creatinine Urine Total Protein Heparin-induced Plt Ab Hep Bs Antibody, Quant Crossmatch 12/12/16 12/13/16 12/13/16 21:35 07:49 07:49 WBC 24.0 H RBC 2.90 L Hgb 8.3 L Hct 25.8 L MCV MCHC RDW 15.5 H Plt Count 120 L Lymph % (Auto) [facility] # Seg Neutrophils % Seg Neuts % (Manual) 89.0 H Lymphocytes % (Manual) 7.0 L Monocytes % (Manual) Nucleated RBC % Seg Neutrophils # Seg Neutrophils # Man 21.4 H Lymphocytes # (Manual) Monocytes # (Manual) Percent Retic Haptoglobin PT INR Fibrinogen D-Dimer POC ABG pH POC ABG pCO2 POC ABG pO2 Sodium Potassium 3.2 L Chloride Carbon Dioxide BUN 21 H Creatinine 3.0 H Glucose 21 L* POC Glucose 185 H Lactic Acid Calcium Phosphorus Magnesium Iron TIBC Total Bilirubin Direct Bilirubin AST ALT Alkaline Phosphatase Lactate Dehydrogenase CK-MB (CK-2) Troponin T C-Reactive Protein Total Protein Albumin Triglycerides Cholesterol HDL Cholesterol Vitamin B12 Urine Creatinine Urine Total Protein Heparin-induced Plt Ab Hep Bs Antibody, Quant Crossmatch 12/13/16 12/13/16 12/13/16 09:57 11:02 16:52 WBC RBC Hgb Hct MCV MCHC RDW Plt Count Lymph % (Auto) [facility] # Seg Neutrophils % Seg Neuts % (Manual) Lymphocytes % (Manual) Monocytes % (Manual) Nucleated RBC % Seg Neutrophils # Seg Neutrophils # Man Lymphocytes # (Manual) Monocytes # (Manual) Percent Retic Haptoglobin PT INR Fibrinogen D-Dimer POC ABG pH POC ABG pCO2 POC ABG pO2 Sodium Potassium Chloride Carbon Dioxide BUN Creatinine Glucose POC Glucose < 40 L 231 H 312 H Lactic Acid Calcium Phosphorus Magnesium Iron TIBC Total Bilirubin Direct Bilirubin AST ALT Alkaline Phosphatase Lactate Dehydrogenase CK-MB (CK-2) Troponin T C-Reactive Protein Total Protein Albumin Triglycerides Cholesterol HDL Cholesterol Vitamin B12 Urine Creatinine Urine Total Protein Heparin-induced Plt Ab Hep Bs Antibody, Quant Crossmatch 12/13/16 12/14/16 12/14/16 21:32 07:07 07:07 WBC 16.7 H RBC 2.80 L Hgb 7.9 L Hct 24.7 L MCV MCHC RDW 15.4 H Plt Count 131 L Lymph % (Auto) 13.[address] [facility] # 1.2 H Seg Neutrophils % 78.3 H Seg Neuts % (Manual) Lymphocytes % (Manual) Monocytes % (Manual) Nucleated RBC % Seg Neutrophils # 13.1 H Seg Neutrophils # Man Lymphocytes # (Manual) Monocytes # (Manual) Percent Retic Haptoglobin PT INR Fibrinogen D-Dimer POC ABG pH POC ABG pCO2 POC ABG pO2 Sodium Potassium 3.5 L Chloride Carbon Dioxide BUN 30 H Creatinine 4.6 H D Glucose 181 H POC Glucose 275 H Lactic Acid Calcium 7.7 L Phosphorus Magnesium Iron TIBC Total Bilirubin Direct Bilirubin AST ALT Alkaline Phosphatase Lactate Dehydrogenase CK-MB (CK-2) Troponin T C-Reactive Protein Total Protein Albumin Triglycerides Cholesterol HDL Cholesterol Vitamin B12 Urine Creatinine Urine Total Protein Heparin-induced Plt Ab Hep Bs Antibody, Quant Crossmatch 12/14/16 12/14/16 12/14/16 07:46 11:35 16:24 WBC RBC Hgb Hct MCV MCHC RDW Plt Count Lymph % (Auto) [facility] # Seg Neutrophils % Seg Neuts % (Manual) Lymphocytes % (Manual) Monocytes % (Manual) Nucleated RBC % Seg Neutrophils # Seg Neutrophils # Man Lymphocytes # (Manual) Monocytes # (Manual) Percent Retic Haptoglobin PT INR Fibrinogen D-Dimer POC ABG pH POC ABG pCO2 POC ABG pO2 Sodium Potassium Chloride Carbon Dioxide BUN Creatinine Glucose POC Glucose 189 H 254 H 466 H Lactic Acid Calcium Phosphorus Magnesium Iron TIBC Total Bilirubin Direct Bilirubin AST ALT Alkaline Phosphatase Lactate Dehydrogenase CK-MB (CK-2) Troponin T C-Reactive Protein Total Protein Albumin Triglycerides Cholesterol HDL Cholesterol Vitamin B12 Urine Creatinine Urine Total Protein Heparin-induced Plt Ab Hep Bs Antibody, Quant Crossmatch
[2016-12-14] MEDS: LEVEMIR SUB-Q SCH (22:18)
[2016-12-15] MEDS: REGLAN IV SCH ×3 (01:45→16:59)
[2016-12-15] MEDS: FLAGYL 500 MG/100 ML 500 MG/100 ML BAG IV SCH ×2 (06:08→16:56)
--- NOTE | 2016-12-15 08:40 | Progress Note ---
Assessment and Plan - Patient Problems (1) Acute respiratory failure with hypoxemia Current Visit: No Status: Acute Plan to address problem: 1. CAP vs. aspiration PNA. Patient has diet recommendations to accommodate her swallowing limitations. 2. Continue current antimicrobials. 2. Tobramycin course is completed through tomorrow's doses. Patient can complete remaining days of Levaquin/ Flagyl orally and on an outpatient basis potentially. Subjective Date of service: 12/15/16 Principal diagnosis: Sepsis; Pneumonia Interval history: WBC count is downtrending. Patient remains afebrile. Objective - Constitutional Vitals: Vital Signs Temp Pulse Resp BP Pulse Ox 98.2 F 118 H 18 121/73 98 12/15/16 05:00 12/15/16 05:00 12/15/16 05:00 12/15/16 05:00 12/15/16 05:00 Temperature -Last 24 Hours Temperature 98.2 F Temperature 98.3 F Temperature 98.6 F Temperature 98.9 F Temperature 99.0 F General appearance: Present: no acute distress (resting comfortably) - Neck Neck: supple - Respiratory Respiratory: bilateral: CTA, negative: rales, rhonchi - Cardiovascular Rhythm: regular Heart Sounds: Present: S1 & S2 Extremities: No edema - Gastrointestinal General gastrointestinal: Present: soft, non-distended - Integumentary Integumentary: clear, no rash - Labs CBC & Chem 7: 12/14/16 07:07 12/14/16 07:07 Labs: Abnormal lab results 12/14/16 12/14/16 12/14/16 Range/Units 07:46 11:35 16:24 POC Glucose 189 H 254 H 466 H (70-105) 12/14/16 Range/Units 20:57 POC Glucose 301 H (70-105) Microbiology 12/11/16 10:24 Central Venous Line Blood Culture - Preliminary NO GROWTH AFTER 72 HOURS 12/05/16 05:19 Peripheral/Venous Blood Culture - Final NO GROWTH AFTER 5 DAYS 12/05/16 04:44 Peripheral/Venous Blood Culture - Final NO GROWTH AFTER 5 DAYS 12/03/16 23:20 Peripheral/Venous Blood Culture - Final Coag Negative Staphylococcus 12/06/16 21:55 Tracheal Aspirate Sputum Culture - Final Pseudomonas Aeruginosa 12/03/16 23:20 Peripheral/Venous Blood Culture - Final NO GROWTH AFTER 5 DAYS 12/04/16 01:05 Tracheal Aspirate Sputum Culture - Final
[2016-12-15] MEDS: TOBRAMYCIN INHALATION (NICU) (40 MG/ML) IH SCH ×3 (09:50→21:42)
--- NOTE | 2016-12-15 10:20 | Progress Note ---
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 fci insulin use: D Qualified Code(s): E10.10 - Type 1 diabetes mellitus with ketoacidosis without coma Plan to address problem: insulin regimen per primary team (2) Acute hypernatremia Current Visit: No Status: Acute Plan to address problem: resolved (3) Acute kidney failure with tubular necrosis Current Visit: No Status: Acute Plan to address problem: secondary to ischemic ATN from shock vascath was removed 12/14, will cont to monitor signs of renal recovery, if no improvement within 24-48 will request permcath strict I&O daily weight renal diet (4) Leukocytosis Current Visit: Yes Status: Acute Qualifiers: Leukocytosis type: L Plan to address problem: followed by [facility] [place] cultures are NTD Subjective Date of service: 12/15/16 Principal diagnosis: Severe Sepsis; DKA, cardiac arrest Interval history: bleeding stopped from catheter site Objective - Vital Signs Vital signs: Vital Signs - 12hr 12/14/16 12/15/16 12/15/16 22:20 00:00 05:00 Temperature 98.3 F 98.2 F Pulse Rate [ 112 H Anterior Bilateral Throughout] Pulse Rate [ 120 H 118 H Right Radial] Respiratory 18 18 Rate Respiratory 20 Rate [Anterior Bilateral Throughout] Blood Pressure 128/79 121/73 [Right Arm] O2 Sat by Pulse 96 98 Oximetry 12/15/16 07:46 Temperature 99.0 F Pulse Rate [ Anterior Bilateral Throughout] Pulse Rate [ 112 H Right Radial] Respiratory 20 Rate Respiratory Rate [Anterior Bilateral Throughout] Blood Pressure 157/90 [Right Arm] O2 Sat by Pulse 94 Oximetry - General Appearance General appearance: well-developed EENT: ATNC, PERRL, mucous membranes moist Neck: no JVD, no carotid bruit Respiratory: Present: Clear to Ascultation Cardiology: regular, normal heart rate Gastrointestinal: normoactive bowel sounds Integumentary: no rash, warm and dry Neurologic: no focal deficit, no asterixis, alert and oriented x3 Musculoskeletal: other (no edema in BLE) Psychiatric: cooperative - Lab 12/14/16 07:07 12/14/16 07:07 Most recent lab results Calcium 7.7 mg/dL (8.4-10.2) L 12/14/16 07:07 Phosphorus 2.60 mg/dL (2.5-4.5) 12/14/16 07:07 Magnesium 1.90 mg/dL (1.7-2.3) 12/11/16 04:30 Urine Creatinine 29.5 mg/dL (0.1-20.0) H 12/04/16 11:25 Urine Sodium 26 mEq/L 12/04/16 11:25 Urine Total Protein 33 mg/dL (5-11.8) H 12/04/16 11:25
[2016-12-15] MEDS ORDERED: S2 RACEPINEPHRINE 2.25% IH ONE (10:29)
[2016-12-15] MEDS: LEVAQUIN 500MG/100ML 500 MG/100 ML BAG IV SCH (12:26)
[2016-12-15] MEDS: PEPCID PO SCH (12:27)
[2016-12-15] MEDS: LOVENOX SUB-Q SCH ×2 (12:27→12:40)
[2016-12-15] MEDS: NOVOLOG SUB-Q SCH ×4 (12:29→23:04)
--- NOTE | 2016-12-15 14:36 | Progress Note ---
Assessment and Plan Cardiac arrest PEA arrest-->V. fib/?torsades-->shocked twice, received amiodarone 300 mg--> likely due to hyperkalemia (9.6 on presentation) Echo 11/2016: EF 40-45%, repeat echo EF 40-45% Abnormal EKG/ST elevation Given pt.'s condition, resolution of ST elevation and recent subarachnoid bleed, anemia, and thrombocytopenia pt. not a candidate for cardiac cath Hypotension resolved Nstemi type 2 Cardiomyopathy EF 40-45% Initiate Lopressor, 25mg PO BID. no ACEI/ARB due to CKD DKA Hyperkalemia Acute on chronic renal failure Anemia / thrombocytopenia Recent subarachnoid hemorrhage Initiate Lopressor, 25mg PO BID. Currently stable cardiac status. Will see PRN. The patient has been seen in conjunction with Dr. Colmenares who agrees with the assessment and plan of care. Subjective Date of service: 12/15/16 Principal diagnosis: Severe Sepsis; DKA, cardiac arrest Interval history: Pt resting in bed, denies any cardiac complaints. ST on tele, BPs elevated. complaining about pureed diet, says she does not like thick water. Objective Last Vital Signs Temp 99.0 F 12/15/16 07:46 Pulse 112 H 12/15/16 10:00 Resp 14 12/15/16 10:00 BP 157/90 12/15/16 07:46 Pulse Ox 94 12/15/16 10:00 - Physical Examination General: No Apparent Distress HEENT: Positive: Normocephaly Neck: Positive: neck supple, trachea midline Cardiac: Positive: Regular Rhythm, S1/S2 Lungs: Positive: clear to auscultation Neuro: Positive: Grossly Intact Abdomen: Positive: Soft Skin: Negative: Rash Extremities: Present: normal. Absent: edema - Imaging and Cardiology Echo: report reviewed (11/2016: EF 40-45% repeat echo EF 40-45%)
--- NOTE | 2016-12-15 16:44 | Progress Note ---
Assessment and Plan Assessment and plan: Cardiac arrest with V. fib - Cardiology is following ARF, ATN - renal is following, status post hemodialysis Acute hypoxic respiratory failure extubated - Pulmonary is following Cardiac arrest was STEMI - Cardiology is following Suspected DKA: - Status post insulin drip - On sliding and basal insulin Metabolic Acidosis - resolved Acute metabolic encephalopathy - resolved Leukocytosis +GNR in trach aspirate, pseudomonas aeruginosa - On levaquin - ID is following -DVT prophylaxis: SCDs only due to recent SAH Thrombocytopenia due to sepsis, improved status post platelet transfusion -Acute on chronic anemia of chronic disease s/p 2 unit of prbc, monitoring closely Depression - Psych consult placed Disposition Plan: continue inpatient care History Interval history: Patient was crying while I want to the room and she said she was not feeling good. She stop crying after I explained what happened to her. Hospitalist Physical - Physical exam Narrative exam: Not in cardiopulmonary distress. The patient appeared well nourished and normally developed. Vital signs as documented. Head exam is unremarkable. No scleral icterus . Neck is without jugular venous distension, thyromegaly, or carotid bruits. Lungs are clear to auscultation. Cardiac exam reveals regular rate and Rhythm. First and second heart sounds normal. No murmurs, rubs or gallops. Abdominal exam reveals normal bowel sounds, no masses, no organomegaly and no aortic enlargement. Extremities are nonedematous and both femoral and pedal pulses are normal. FINE SANDER: Alert and oriented 3. No focal weakness. - Constitutional Vitals: Temp Pulse Resp BP Pulse Ox 99.0 F 112 H 14 157/90 94 12/15/16 07:46 12/15/16 10:00 12/15/16 10:00 12/15/16 07:46 12/15/16 10:00 General appearance: Present: no acute distress (resting comfortably) Results - Labs CBC & Chem 7: 12/14/16 07:07 12/14/16 07:07 Labs: Laboratory Last Values WBC 16.7 K/mm3 (4.5-11.0) H 12/14/16 07:07 RBC 2.80 M/mm3 (3.65-5.03) L 12/14/16 07:07 Hgb 7.9 gm/dl (10.1-14.3) L 12/14/16 07:07 Hct 24.7 % (30.3-42.9) L 12/14/16 07:07 MCV 88 fl (79-97) 12/14/16 07:07 MCH 28 pg (28-32) 12/14/16 07:07 MCHC 32 % (30-34) 12/14/16 07:07 RDW 15.4 % (13.2-15.2) H 12/14/16 07:07 Plt Count 131 K/mm3 (140-440) L 12/14/16 07:07 Lymph % (Auto) 13.1 % (13.4-35.0) L 12/14/16 07:07 Cecil % (Auto) 7.3 % (0.0-7.3) 12/14/16 07:07 Eos % (Auto) 1.0 % (0.0-4.3) 12/14/16 07:07 Baso % (Auto) 0.3 % (0.0-1.8) 12/14/16 07:07 Lymph # 2.2 K/mm3 (1.2-5.4) 12/14/16 07:07 Cecil # 1.2 K/mm3 (0.0-0.8) H 12/14/16 07:07 Eos # 0.2 K/mm3 (0.0-0.4) 12/14/16 07:07 Baso # 0.0 K/mm3 (0.0-0.1) 12/14/16 07:07 Add Manual Diff Complete 12/13/16 07:49 Total Counted 100 12/13/16 07:49 Seg Neutrophils % 78.3 % (40.0-70.0) H 12/14/16 07:07 Seg Neuts % (Manual) 89.0 % (40.0-70.0) H 12/13/16 07:49 Band Neutrophils % 1.0 % 12/13/16 07:49 Lymphocytes % (Manual) 7.0 % (13.4-35.0) L 12/13/16 07:49 Reactive Lymphs % (Man) 0 % 12/13/16 07:49 Monocytes % (Manual) 3.0 % (0.0-7.3) 12/13/16 07:49 Eosinophils % (Manual) 0 % (0.0-4.3) 12/13/16 07:49 Basophils % (Manual) 0 % (0.0-1.8) 12/13/16 07:49 Metamyelocytes % 0 % 12/13/16 07:49 Myelocytes % 0 % 12/13/16 07:49 Promyelocytes % 0 % 12/13/16 07:49 Blast Cells % 0 % 12/13/16 07:49 Nucleated RBC % Not Reportable 12/13/16 07:49 Seg Neutrophils # 13.1 K/mm3 (1.8-7.7) H 12/14/16 07:07 Seg Neutrophils # Man 21.4 K/mm3 (1.8-7.7) H 12/13/16 07:49 Band Neutrophils # 0.2 K/mm3 12/13/16 07:49 Lymphocytes # (Manual) 1.7 K/mm3 (1.2-5.4) 12/13/16 07:49 Abs React Lymphs (Man) 0.0 K/mm3 12/13/16 07:49 Monocytes # (Manual) 0.7 K/mm3 (0.0-0.8) 12/13/16 07:49 Eosinophils # (Manual) 0.0 K/mm3 (0.0-0.4) 12/13/16 07:49 Basophils # (Manual) 0.0 K/mm3 (0.0-0.1) 12/13/16 07:49 Metamyelocytes # 0.0 K/mm3 12/13/16 07:49 Myelocytes # 0.0 K/mm3 12/13/16 07:49 Promyelocytes # 0.0 K/mm3 12/13/16 07:49 Blast Cells # 0.0 K/mm3 12/13/16 07:49 WBC Morphology Not Reportable 12/13/16 07:49 Hypersegmented Neuts Not Reportable 12/13/16 07:49 Hyposegmented Neuts Not Reportable 12/13/16 07:49 Hypogranular Neuts Not Reportable 12/13/16 07:49 Smudge Cells Not Reportable 12/13/16 07:49 Toxic Granulation Not Reportable 12/13/16 07:49 Toxic Vacuolation Not Reportable 12/13/16 07:49 Dohle Bodies Not Reportable 12/13/16 07:49 Pelger-Huet Anomaly Not Reportable 12/13/16 07:49 Mary Rods Not Reportable 12/13/16 07:49 Platelet Estimate Cons 12/13/16 07:49 Clumped Platelets Not Reportable 12/13/16 07:49 Plt Clumps, EDTA Not Reportable 12/13/16 07:49 Large Platelets Rare 12/13/16 07:49 Giant Platelets Not Reportable 12/13/16 07:49 Platelet Satelliting Not Reportable 12/13/16 07:49 Plt Morphology Comment Not Reportable 12/13/16 07:49 RBC Morphology Not Reportable 12/13/16 07:49 Dimorphic RBCs Not Reportable 12/13/16 07:49 Polychromasia Not Reportable 12/13/16 07:49 Hypochromasia 1+ 12/13/16 07:49 Poikilocytosis Not Reportable 12/13/16 07:49 Anisocytosis 1+ 12/13/16 07:49 Microcytosis Not Reportable 12/13/16 07:49 Macrocytosis Not Reportable 12/13/16 07:49 Spherocytes Not Reportable 12/13/16 07:49 Pappenheimer Bodies Not Reportable 12/13/16 07:49 Sickle Cells Not Reportable 12/13/16 07:49 Target Cells Few 12/13/16 07:49 Tear Drop Cells Not Reportable 12/13/16 07:49 Ovalocytes Not Reportable 12/13/16 07:49 Helmet Cells Not Reportable 12/13/16 07:49 [place] Bodies Not Reportable 12/13/16 07:49 [employer] Rings Not Reportable 12/13/16 07:49 Jerri Cells Not Reportable 12/13/16 07:49 Bite Cells Not Reportable 12/13/16 07:49 Crenated Cell Not Reportable 12/13/16 07:49 Elliptocytes Not Reportable 12/13/16 07:49 Acanthocytes (Spur) Not Reportable 12/13/16 07:49 Rouleaux Not Reportable 12/13/16 07:49 Hemoglobin C Crystals Not Reportable 12/13/16 07:49 Schistocytes Not Reportable 12/13/16 07:49 Malaria parasites Not Reportable 12/13/16 07:49 Percent Retic 0.23 % (0.78-2.58) L 12/09/16 11:29 Michael Bodies Not Reportable 12/13/16 07:49 Haptoglobin 271 mg/dL (43-212) H 12/08/16 21:30 Hem Pathologist Commnt No 12/13/16 07:49 PT 15.3 Sec. (12.2-14.9) H 12/08/16 19:00 INR 1.22 (0.87-1.13) H 12/08/16 19:00 APTT 36.2 Sec. (24.2-36.6) 12/08/16 19:00 Fibrinogen 563 mg/dl (211-480) H 12/08/16 19:00 D-Dimer 5507.36 ng/mlDDU (0-234) H 12/08/16 19:00 Heparin Anti-Xa, Unfract Negative (Negative) 12/09/16 13:27 POC ABG pH 7.326 (7.35-7.45) L 12/09/16 12:02 POC ABG pCO2 37.7 (35-45) 12/09/16 12:02 POC ABG pO2 115 (80-105) H 12/09/16 12:02 POC ABG HCO3 19.7 12/09/16 12:02 POC ABG Total CO2 21 12/09/16 12:02 POC ABG O2 Sat 98 12/09/16 12:02 POC ABG Base Excess -6 12/09/16 12:02 FiO2 30 % 12/09/16 12:02 Sodium 140 mmol/L (137-145) 12/14/16 07:07 Potassium 3.5 mmol/L (3.6-5.0) L 12/14/16 07:07 Chloride 101.5 mmol/L (98-107) 12/14/16 07:07 Carbon Dioxide 23 mmol/L (22-30) 12/14/16 07:07 Anion Gap 19 mmol/L 12/14/16 07:07 BUN 30 mg/dL (7-17) H 12/14/16 07:07 Creatinine 4.6 mg/dL (0.7-1.2) H D 12/14/16 07:07 Estimated GFR 12 ml/min 12/14/16 07:07 BUN/Creatinine Ratio 6.52 % 12/14/16 07:07 Glucose 181 mg/dL (65-100) H 12/14/16 07:07 POC Glucose 375 (70-105) H 12/15/16 11:38 Lactic Acid 6.90 mmol/L (0.7-2.0) H* 12/07/16 07:30 Calcium 7.7 mg/dL (8.4-10.2) L 12/14/16 07:07 Phosphorus 2.60 mg/dL (2.5-4.5) 12/14/16 07:07 Magnesium 1.90 mg/dL (1.7-2.3) 12/11/16 04:30 Iron 15 ug/dL (37-170) L 12/09/16 13:27 TIBC 134 mcg/dL (250-450) L 12/09/16 13:27 Ferritin 360.1 ng/mL (13.0-400.0) 12/09/16 13:27 Total Bilirubin 1.40 mg/dL (0.1-1.2) H 12/07/16 21:35 Direct Bilirubin 0.9 mg/dL (0-0.2) H 12/07/16 21:35 Indirect Bilirubin 0.5 mg/dL 12/07/16 21:35 AST 94 units/L (5-40) H 12/07/16 21:35 ALT 142 units/L (7-56) H 12/07/16 21:35 Alkaline Phosphatase 249 units/L (35-129) H 12/07/16 21:35 Lactate Dehydrogenase 382 units/L (91-180) H 12/08/16 19:00 Total Creatine Kinase 123 units/L (30-135) 12/04/16 09:55 CK-MB (CK-2) 4.6 ng/mL (0.0-4.0) H 12/04/16 09:55 CK-MB (CK-2) Rel Index 3.7 (0-4) 12/04/16 09:55 Troponin T 0.140 ng/mL (0.00-0.029) H* D 12/04/16 09:55 C-Reactive Protein 39.40 mg/dL (0.00-1.30) H 12/07/16 06:00 Total Protein 4.6 g/dL (6.3-8.2) L D 12/07/16 21:35 Albumin 2.1 g/dL (3.9-5) L 12/07/16 21:35 Albumin/Globulin Ratio 0.8 % 12/07/16 21:35 Triglycerides 570 mg/dL (2-149) H 12/04/16 07:55 Cholesterol 221 mg/dL (50-199) H 12/04/16 07:55 LDL Cholesterol Direct TNR 12/04/16 07:55 HDL Cholesterol 37 mg/dL (40-59) L 12/04/16 07:55 Cholesterol/HDL Ratio 5.97 % 12/04/16 07:55 Vitamin B12 > 2000 pg/mL (211-911) H 12/09/16 13:27 Folate 8.10 ng/mL (7.3-26.0) 12/09/16 13:27 TSH 1.600 mlU/mL (0.270-4.200) 12/03/16 23:20 Urine Color Yellow (Yellow) 12/04/16 11:25 Urine Turbidity Slightly-cloudy (Clear) 12/04/16 11:25 Urine pH 5.0 (5.0-7.0) 12/04/16 11:25 Ur Specific [place] 1.018 (1.003-1.030) 12/04/16 11:25 Urine Protein 30 mg/dl mg/dL (Negative) 12/04/16 11:25 Urine Glucose (UA) >=500 mg/dL (Negative) 12/04/16 11:25 Urine Ketones Tr mg/dL (Negative) 12/04/16 11:25 Urine Blood Sm (Negative) 12/04/16 11:25 Urine Nitrite Neg (Negative) 12/04/16 11:25 Urine Bilirubin Neg (Negative) 12/04/16 11:25 Urine Urobilinogen < 2.0 mg/dL (<2.0) 12/04/16 11:25 Ur Leukocyte Esterase Neg (Negative) 12/04/16 11:25 Urine WBC (Auto) 4.0 /HPF (0.0-6.0) 12/04/16 11:25 Urine RBC (Auto) 2.0 /HPF (0.0-6.0) 12/04/16 11:25 U Epithel Cells (Auto) < 1.0 /HPF (0-13.0) 12/04/16 11:25 Urine Mucus Few /HPF 12/04/16 11:25 Urine Osmolality 419 Mosm/kg 12/04/16 11:25 Urine Creatinine 29.5 mg/dL (0.1-20.0) H 12/04/16 11:25 Protein/Creatinin Ratio 1.12 12/04/16 11:25 Urine Sodium 26 mEq/L 12/04/16 11:25 Urine Total Protein 33 mg/dL (5-11.8) H 12/04/16 11:25 Urine Opiates Screen Presumptive negative 12/04/16 11:25 Urine Methadone Screen Presumptive negative 12/04/16 11:25 Ur Barbiturates Screen Presumptive negative 12/04/16 11:25 Ur Phencyclidine Scrn Presumptive negative 12/04/16 11:25 Ur Amphetamines Screen Presumptive negative 12/04/16 11:25 U Benzodiazepines Scrn Presumptive negative 12/04/16 11:25 Urine Cocaine Screen Presumptive negative 12/04/16 11:25 U Marijuana (THC) Screen Presumptive positive 12/04/16 11:25 Drugs of Abuse Note Disclamer 12/04/16 11:25 Heparin-induced Plt Ab Weak positive (Negative) H 12/09/16 13:27 UF Heparin High Dose 0 % Release 12/09/16 13:27 ADRIENNE UFH Low Dose 0.1 0 % Release 12/09/16 13:27 ADRIENNE UFH Low Dose 0.5 0 % Release 12/09/16 13:27 Hep Bs Antigen Non-reactive (Negative) 12/09/16 13:27 Hep Bs Antibody, Quant <5 mIU/mL (>=10) L 12/09/16 13:27 Hep B Core Total Ab Nonreactive (Nonreactive) 12/09/16 13:27 Hepatitis C Antibody Non-reactive (NonReactive) 12/09/16 13:27 HIV 1&2 Antibody Rapid Non react (Non React) 12/09/16 13:27 HIV P24 Antigen Non react (Non React) 12/09/16 13:27 Schistocytes Smear None seen 12/09/16 11:29 Blood Type O POSITIVE 12/08/16 08:46 Antibody Screen TNR 12/08/16 08:46 ISAIAH Antibody Screen Negative 12/08/16 08:46 Crossmatch See Detail 12/08/16 08:46
--- NOTE | 2016-12-15 19:23 | Progress Note ---
Assessment and Plan Patient alert, awake.. No acute respiratory distress.No complaint of chest pain or shortness of breath..Patient resting on room air .O2 saturation 97%. 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 Patient alert, awake. Clinicaly appears improving. Management as per primary care. (2) Metabolic encephalopathy Current Visit: Yes Status: Acute Plan to address problem: Patient alert, awake, following commands. Appears encephalopathy improving. Management as per primary care. (3) Pulmonary infiltrate in right lung on chest x-ray Current Visit: Yes Status: Acute Plan to address problem: Patient is on I/V flagyl. Starting on I/V Levaquine. Patient afebrile. Still has leukocytosis. Subjective Date of service: 12/15/16 Principal diagnosis: Sepsis; Pneumonia Interval history: Patient alert, awake, weak. No acute respiratory distress. No complaint of chest pain or shortness of breath. Slight cough and hoarseness of voice.O2 saturation 97% on room air. Objective Vital Signs - 12hr 12/15/16 12/15/16 12/15/16 07:46 10:00 15:34 Temperature 99.0 F 98.9 F Pulse Rate [ 112 H 112 H 108 H Right Radial] Respiratory 20 14 20 Rate Blood Pressure 157/90 151/91 [Right Arm] O2 Sat by Pulse 94 94 97 Oximetry Constitutional: no acute distress, alert Eyes: non-icteric ENT: oropharynx moist Neck: supple, no lymphadenopathy Effort: mildly labored Ascultation: Bilateral: diminished breath sounds, rales (R>L lungs), rhonchi ( On right side.) Cardiovascular: regular rate and rhythm, other (SVT) Gastrointestinal: normoactive bowel sounds, soft, non-tender, non-distended Integumentary: normal Extremities: no cyanosis, no edema, pulses normal, no ischemia or petechiae Neurologic: normal mental status, non-focal exam, pupils equal and round, motor strength normal and Psychiatric: mood appropriate, affect normal CBC and BMP: 12/14/16 07:07 12/14/16 07:07 ABG, PT/INR, D-dimer: ABG POC ABG pH 7.326 (7.35-7.45) L 12/09/16 12:02 POC ABG pCO2 37.7 (35-45) 12/09/16 12:02 POC ABG pO2 115 (80-105) H 12/09/16 12:02 POC ABG HCO3 19.7 12/09/16 12:02 POC ABG Total CO2 21 12/09/16 12:02 POC ABG O2 Sat 98 12/09/16 12:02 PT/INR, D-dimer PT 15.3 Sec. (12.2-14.9) H 12/08/16 19:00 INR 1.22 (0.87-1.13) H 12/08/16 19:00 D-Dimer 5507.36 ng/mlDDU (0-234) H 12/08/16 19:00 Abnormal lab findings: Abnormal Labs 12/04/16 12/04/16 12/04/16 01:19 01:36 02:21 WBC RBC Hgb Hct MCV MCHC RDW Plt Count Lymph % (Auto) [place] # Seg Neutrophils % Seg Neuts % (Manual) Lymphocytes % (Manual) Monocytes % (Manual) Nucleated RBC % Seg Neutrophils # Seg Neutrophils # Man Lymphocytes # (Manual) Monocytes # (Manual) Percent Retic Haptoglobin PT INR Fibrinogen D-Dimer POC ABG pH 6.759 L POC ABG pCO2 POC ABG pO2 437 H Sodium Potassium Chloride Carbon Dioxide BUN Creatinine Glucose POC Glucose > 500 H Lactic Acid Calcium Phosphorus 15.70 H Magnesium 4.30 H Iron TIBC Total Bilirubin Direct Bilirubin AST ALT Alkaline Phosphatase Lactate Dehydrogenase CK-MB (CK-2) Troponin T C-Reactive Protein Total Protein Albumin Triglycerides Cholesterol HDL Cholesterol Vitamin B12 Urine Creatinine Urine Total Protein Heparin-induced Plt Ab Hep Bs Antibody, Quant Crossmatch 12/04/16 12/04/16 12/04/16 03:55 04:00 05:11 WBC RBC Hgb Hct MCV MCHC RDW Plt Count Lymph % (Auto) [place] # Seg Neutrophils % Seg Neuts % (Manual) Lymphocytes % (Manual) Monocytes % (Manual) Nucleated RBC % Seg Neutrophils # Seg Neutrophils # Man Lymphocytes # (Manual) Monocytes # (Manual) Percent Retic Haptoglobin PT INR Fibrinogen D-Dimer POC ABG pH POC ABG pCO2 POC ABG pO2 Sodium Potassium Chloride 91.4 L Carbon Dioxide 8 L* BUN 55 H Creatinine 2.8 H Glucose 1610 H* POC Glucose > 500 H > 500 H Lactic Acid Calcium Phosphorus Magnesium Iron TIBC Total Bilirubin Direct Bilirubin AST ALT Alkaline Phosphatase Lactate Dehydrogenase CK-MB (CK-2) Troponin T C-Reactive Protein Total Protein Albumin Triglycerides Cholesterol HDL Cholesterol Vitamin B12 Urine Creatinine Urine Total Protein Heparin-induced Plt Ab Hep Bs Antibody, Quant Crossmatch 12/04/16 12/04/16 12/04/16 05:40 05:54 06:58 WBC RBC Hgb Hct MCV MCHC RDW Plt Count Lymph % (Auto) [place] # Seg Neutrophils % Seg Neuts % (Manual) Lymphocytes % (Manual) Monocytes % (Manual) Nucleated RBC % Seg Neutrophils # Seg Neutrophils # Man Lymphocytes # (Manual) Monocytes # (Manual) Percent Retic Haptoglobin PT INR Fibrinogen D-Dimer POC ABG pH 7.154 L POC ABG pCO2 27.5 L POC ABG pO2 111 H Sodium Potassium Chloride Carbon Dioxide BUN Creatinine Glucose POC Glucose > 500 H > 500 H Lactic Acid Calcium Phosphorus Magnesium Iron TIBC Total Bilirubin Direct Bilirubin AST ALT Alkaline Phosphatase Lactate Dehydrogenase CK-MB (CK-2) Troponin T C-Reactive Protein Total Protein Albumin Triglycerides Cholesterol HDL Cholesterol Vitamin B12 Urine Creatinine Urine Total Protein Heparin-induced Plt Ab Hep Bs Antibody, Quant Crossmatch 12/04/16 12/04/16 12/04/16 07:49 07:55 07:55 WBC RBC Hgb Hct MCV MCHC RDW Plt Count Lymph % (Auto) [place] # Seg Neutrophils % Seg Neuts % (Manual) Lymphocytes % (Manual) Monocytes % (Manual) Nucleated RBC % Seg Neutrophils # Seg Neutrophils # Man Lymphocytes # (Manual) Monocytes # (Manual) Percent Retic Haptoglobin PT INR Fibrinogen D-Dimer POC ABG pH POC ABG pCO2 POC ABG pO2 Sodium Potassium 3.3 L Chloride Carbon Dioxide 9 L* BUN 53 H Creatinine 2.9 H Glucose 1229 H* POC Glucose > 500 H Lactic Acid Calcium Phosphorus Magnesium Iron TIBC Total Bilirubin Direct Bilirubin AST ALT Alkaline Phosphatase Lactate Dehydrogenase CK-MB (CK-2) Troponin T 0.111 H* D C-Reactive Protein Total Protein Albumin Triglycerides 570 H Cholesterol 221 H HDL Cholesterol 37 L Vitamin B12 Urine Creatinine Urine Total Protein Heparin-induced Plt Ab Hep Bs Antibody, Quant Crossmatch 12/04/16 12/04/16 12/04/16 07:55 09:55 09:55 WBC RBC 2.90 L Hgb 8.5 L Hct 30.2 L D MCV 105 H D MCHC 28 L RDW 19.2 H Plt Count Lymph % (Auto) [place] # Seg Neutrophils % Seg Neuts % (Manual) Lymphocytes % (Manual) 11.0 L Monocytes % (Manual) Nucleated RBC % Seg Neutrophils # Seg Neutrophils # Man Lymphocytes # (Manual) 0.6 L Monocytes # (Manual) Percent Retic Haptoglobin PT INR Fibrinogen D-Dimer POC ABG pH POC ABG pCO2 POC ABG pO2 Sodium Potassium 3.1 L Chloride Carbon Dioxide 7 L* BUN 51 H Creatinine 3.2 H Glucose 969 H* POC Glucose Lactic Acid Calcium 10.4 H D Phosphorus Magnesium Iron TIBC Total Bilirubin Direct Bilirubin AST ALT Alkaline Phosphatase Lactate Dehydrogenase CK-MB (CK-2) 4.6 H Troponin T 0.140 H* D C-Reactive Protein Total Protein Albumin Triglycerides Cholesterol HDL Cholesterol Vitamin B12 Urine Creatinine Urine Total Protein Heparin-induced Plt Ab Hep Bs Antibody, Quant Crossmatch 12/04/16 12/04/16 12/04/16 09:55 10:37 11:25 WBC RBC Hgb Hct MCV MCHC RDW Plt Count Lymph % (Auto) [place] # Seg Neutrophils % Seg Neuts % (Manual) Lymphocytes % (Manual) Monocytes % (Manual) Nucleated RBC % Seg Neutrophils # Seg Neutrophils # Man Lymphocytes # (Manual) Monocytes # (Manual) Percent Retic Haptoglobin PT INR Fibrinogen D-Dimer POC ABG pH 7.215 L POC ABG pCO2 18.8 L POC ABG pO2 193 H Sodium Potassium Chloride Carbon Dioxide BUN Creatinine Glucose POC Glucose Lactic Acid Calcium Phosphorus Magnesium 3.70 H Iron TIBC Total Bilirubin Direct Bilirubin AST ALT Alkaline Phosphatase Lactate Dehydrogenase CK-MB (CK-2) Troponin T C-Reactive Protein Total Protein Albumin Triglycerides Cholesterol HDL Cholesterol Vitamin B12 Urine Creatinine 29.5 H Urine Total Protein 33 H Heparin-induced Plt Ab Hep Bs Antibody, Quant Crossmatch 12/04/16 12/04/16 12/04/16 12:00 12:48 13:00 WBC RBC Hgb Hct MCV MCHC RDW Plt Count Lymph % (Auto) [place] # Seg Neutrophils % Seg Neuts % (Manual) Lymphocytes % (Manual) Monocytes % (Manual) Nucleated RBC % Seg Neutrophils # Seg Neutrophils # Man Lymphocytes # (Manual) Monocytes # (Manual) Percent Retic Haptoglobin PT INR Fibrinogen D-Dimer POC ABG pH POC ABG pCO2 POC ABG pO2 Sodium 149 H 150 H Potassium 3.2 L 3.2 L Chloride 109.1 H Carbon Dioxide 8 L* 8 L* BUN 52 H 49 H Creatinine 3.4 H 3.1 H Glucose 723 H* 574 H* POC Glucose Lactic Acid 18.80 H* Calcium Phosphorus Magnesium Iron TIBC Total Bilirubin Direct Bilirubin AST ALT Alkaline Phosphatase Lactate Dehydrogenase CK-MB (CK-2) Troponin T C-Reactive Protein Total Protein Albumin Triglycerides Cholesterol HDL Cholesterol Vitamin B12 Urine Creatinine Urine Total Protein Heparin-induced Plt Ab Hep Bs Antibody, Quant Crossmatch 12/04/16 12/04/16 12/04/16 13:01 14:41 16:06 WBC RBC Hgb Hct MCV MCHC RDW Plt Count Lymph % (Auto) [place] # Seg Neutrophils % Seg Neuts % (Manual) Lymphocytes % (Manual) Monocytes % (Manual) Nucleated RBC % Seg Neutrophils # Seg Neutrophils # Man Lymphocytes # (Manual) Monocytes # (Manual) Percent Retic Haptoglobin PT INR Fibrinogen D-Dimer POC ABG pH POC ABG pCO2 POC ABG pO2 Sodium 151 H Potassium 3.2 L Chloride 108.1 H Carbon Dioxide 10 L BUN 49 H Creatinine 3.0 H Glucose 383 H POC Glucose 292 H Lactic Acid Calcium Phosphorus Magnesium Iron TIBC Total Bilirubin Direct Bilirubin AST ALT Alkaline Phosphatase Lactate Dehydrogenase CK-MB (CK-2) Troponin T C-Reactive Protein 3.50 H Total Protein Albumin Triglycerides Cholesterol HDL Cholesterol Vitamin B12 Urine Creatinine Urine Total Protein Heparin-induced Plt Ab Hep Bs Antibody, Quant Crossmatch 12/04/16 12/04/16 12/04/16 17:15 17:25 18:07 WBC RBC Hgb Hct MCV MCHC RDW Plt Count Lymph % (Auto) [place] # Seg Neutrophils % Seg Neuts % (Manual) Lymphocytes % (Manual) Monocytes % (Manual) Nucleated RBC % Seg Neutrophils # Seg Neutrophils # Man Lymphocytes # (Manual) Monocytes # (Manual) Percent Retic Haptoglobin PT INR Fibrinogen D-Dimer POC ABG pH 7.255 L POC ABG pCO2 16.9 L POC ABG pO2 169 H Sodium Potassium Chloride Carbon Dioxide BUN Creatinine Glucose POC Glucose 246 H Lactic Acid 18.50 H* Calcium Phosphorus Magnesium Iron TIBC Total Bilirubin Direct Bilirubin AST ALT Alkaline Phosphatase Lactate Dehydrogenase CK-MB (CK-2) Troponin T C-Reactive Protein Total Protein Albumin Triglycerides Cholesterol HDL Cholesterol Vitamin B12 Urine Creatinine Urine Total Protein Heparin-induced Plt Ab Hep Bs Antibody, Quant Crossmatch 12/04/16 12/04/16 12/04/16 19:34 20:31 21:15 WBC RBC Hgb Hct MCV MCHC RDW Plt Count Lymph % (Auto) [place] # Seg Neutrophils % Seg Neuts % (Manual) Lymphocytes % (Manual) Monocytes % (Manual) Nucleated RBC % Seg Neutrophils # Seg Neutrophils # Man Lymphocytes # (Manual) Monocytes # (Manual) Percent Retic Haptoglobin PT INR Fibrinogen D-Dimer POC ABG pH POC ABG pCO2 POC ABG pO2 Sodium Potassium Chloride Carbon Dioxide BUN Creatinine Glucose POC Glucose 189 H 126 H 139 H Lactic Acid Calcium Phosphorus Magnesium Iron TIBC Total Bilirubin Direct Bilirubin AST ALT Alkaline Phosphatase Lactate Dehydrogenase CK-MB (CK-2) Troponin T C-Reactive Protein Total Protein Albumin Triglycerides Cholesterol HDL Cholesterol Vitamin B12 Urine Creatinine Urine Total Protein Heparin-induced Plt Ab Hep Bs Antibody, Quant Crossmatch 12/04/16 12/04/16 12/04/16 21:25 22:37 23:35 WBC RBC Hgb Hct MCV MCHC RDW Plt Count Lymph % (Auto) [place] # Seg Neutrophils % Seg Neuts % (Manual) Lymphocytes % (Manual) Monocytes % (Manual) Nucleated RBC % Seg Neutrophils # Seg Neutrophils # Man Lymphocytes # (Manual) Monocytes # (Manual) Percent Retic Haptoglobin PT INR Fibrinogen D-Dimer POC ABG pH 7.294 L POC ABG pCO2 16.7 L POC ABG pO2 169 H Sodium Potassium Chloride Carbon Dioxide BUN Creatinine Glucose POC Glucose 131 H 106 H Lactic Acid Calcium Phosphorus Magnesium Iron TIBC Total Bilirubin Direct Bilirubin AST ALT Alkaline Phosphatase Lactate Dehydrogenase CK-MB (CK-2) Troponin T C-Reactive Protein Total Protein Albumin Triglycerides Cholesterol HDL Cholesterol Vitamin B12 Urine Creatinine Urine Total Protein Heparin-induced Plt Ab Hep Bs Antibody, Quant Crossmatch 12/05/16 12/05/16 12/05/16 02:40 02:50 02:50 WBC RBC Hgb Hct MCV MCHC RDW Plt Count Lymph % (Auto) [place] # Seg Neutrophils % Seg Neuts % (Manual) Lymphocytes % (Manual) Monocytes % (Manual) Nucleated RBC % Seg Neutrophils # Seg Neutrophils # Man Lymphocytes # (Manual) Monocytes # (Manual) Percent Retic Haptoglobin PT INR Fibrinogen D-Dimer POC ABG pH POC ABG pCO2 POC ABG pO2 Sodium 151 H Potassium Chloride 113.8 H Carbon Dioxide 12 L BUN 46 H Creatinine 3.2 H Glucose 165 H POC Glucose 109 H Lactic Acid 9.80 H* Calcium 8.3 L Phosphorus Magnesium Iron TIBC Total Bilirubin Direct Bilirubin AST ALT Alkaline Phosphatase Lactate Dehydrogenase CK-MB (CK-2) Troponin T C-Reactive Protein Total Protein Albumin Triglycerides Cholesterol HDL Cholesterol Vitamin B12 Urine Creatinine Urine Total Protein Heparin-induced Plt Ab Hep Bs Antibody, Quant Crossmatch 12/05/16 12/05/16 12/05/16 04:01 04:30 04:30 WBC 19.1 H RBC 2.91 L Hgb 8.0 L Hct 25.4 L MCV MCHC RDW 17.8 H Plt Count Lymph % (Auto) [place] # Seg Neutrophils % Seg Neuts % (Manual) 17.0 L Lymphocytes % (Manual) 7.0 L Monocytes % (Manual) Nucleated RBC % 3.0 H Seg Neutrophils # Seg Neutrophils # Man Lymphocytes # (Manual) Monocytes # (Manual) Percent Retic Haptoglobin PT INR Fibrinogen D-Dimer POC ABG pH POC ABG pCO2 POC ABG pO2 Sodium 152 H Potassium Chloride 113.5 H Carbon Dioxide 12 L BUN 47 H Creatinine 3.2 H Glucose 133 H POC Glucose 179 H Lactic Acid Calcium 8.3 L Phosphorus 1.00 L D Magnesium Iron TIBC Total Bilirubin Direct Bilirubin AST ALT Alkaline Phosphatase Lactate Dehydrogenase CK-MB (CK-2) Troponin T C-Reactive Protein Total Protein Albumin Triglycerides Cholesterol HDL Cholesterol Vitamin B12 Urine Creatinine Urine Total Protein Heparin-induced Plt Ab Hep Bs Antibody, Quant Crossmatch 12/05/16 12/05/16 12/05/16 05:32 08:01 08:48 WBC RBC Hgb Hct MCV MCHC RDW Plt Count Lymph % (Auto) [place] # Seg Neutrophils % Seg Neuts % (Manual) Lymphocytes % (Manual) Monocytes % (Manual) Nucleated RBC % Seg Neutrophils # Seg Neutrophils # Man Lymphocytes # (Manual) Monocytes # (Manual) Percent Retic Haptoglobin PT INR Fibrinogen D-Dimer POC ABG pH POC ABG pCO2 17.6 L POC ABG pO2 62 L Sodium Potassium Chloride Carbon Dioxide BUN Creatinine Glucose POC Glucose 126 H 130 H Lactic Acid Calcium Phosphorus Magnesium Iron TIBC Total Bilirubin Direct Bilirubin AST ALT Alkaline Phosphatase Lactate Dehydrogenase CK-MB (CK-2) Troponin T C-Reactive Protein Total Protein Albumin Triglycerides Cholesterol HDL Cholesterol Vitamin B12 Urine Creatinine Urine Total Protein Heparin-induced Plt Ab Hep Bs Antibody, Quant Crossmatch 12/05/16 12/05/16 12/05/16 08:54 12:01 15:15 WBC RBC Hgb Hct MCV MCHC RDW Plt Count Lymph % (Auto) [place] # Seg Neutrophils % Seg Neuts % (Manual) Lymphocytes % (Manual) Monocytes % (Manual) Nucleated RBC % Seg Neutrophils # Seg Neutrophils # Man Lymphocytes # (Manual) Monocytes # (Manual) Percent Retic Haptoglobin PT INR Fibrinogen D-Dimer POC ABG pH POC ABG pCO2 POC ABG pO2 Sodium Potassium Chloride Carbon Dioxide BUN Creatinine Glucose POC Glucose 157 H 117 H 166 H Lactic Acid Calcium Phosphorus Magnesium Iron TIBC Total Bilirubin Direct Bilirubin AST ALT Alkaline Phosphatase Lactate Dehydrogenase CK-MB (CK-2) Troponin T C-Reactive Protein Total Protein Albumin Triglycerides Cholesterol HDL Cholesterol Vitamin B12 Urine Creatinine Urine Total Protein Heparin-induced Plt Ab Hep Bs Antibody, Quant Crossmatch 12/05/16 12/05/16 12/05/16 16:10 16:55 17:08 WBC RBC Hgb Hct MCV MCHC RDW Plt Count Lymph % (Auto) [place] # Seg Neutrophils % Seg Neuts % (Manual) Lymphocytes % (Manual) Monocytes % (Manual) Nucleated RBC % Seg Neutrophils # Seg Neutrophils # Man Lymphocytes # (Manual) Monocytes # (Manual) Percent Retic Haptoglobin PT INR Fibrinogen D-Dimer POC ABG pH POC ABG pCO2 POC ABG pO2 Sodium Potassium Chloride Carbon Dioxide BUN Creatinine Glucose POC Glucose 178 H 169 H Lactic Acid Calcium Phosphorus 5.00 H D Magnesium Iron TIBC Total Bilirubin Direct Bilirubin AST ALT Alkaline Phosphatase Lactate Dehydrogenase CK-MB (CK-2) Troponin T C-Reactive Protein Total Protein Albumin Triglycerides Cholesterol HDL Cholesterol Vitamin B12 Urine Creatinine Urine Total Protein Heparin-induced Plt Ab Hep Bs Antibody, Quant Crossmatch 12/05/16 12/05/16 12/05/16 18:08 18:51 20:04 WBC RBC Hgb Hct MCV MCHC RDW Plt Count Lymph % (Auto) [place] # Seg Neutrophils % Seg Neuts % (Manual) Lymphocytes % (Manual) Monocytes % (Manual) Nucleated RBC % Seg Neutrophils # Seg Neutrophils # Man Lymphocytes # (Manual) Monocytes # (Manual) Percent Retic Haptoglobin PT INR Fibrinogen D-Dimer POC ABG pH POC ABG pCO2 POC ABG pO2 Sodium Potassium Chloride Carbon Dioxide BUN Creatinine Glucose POC Glucose 147 H 113 H 64 L Lactic Acid Calcium Phosphorus Magnesium Iron TIBC Total Bilirubin Direct Bilirubin AST ALT Alkaline Phosphatase Lactate Dehydrogenase CK-MB (CK-2) Troponin T C-Reactive Protein Total Protein Albumin Triglycerides Cholesterol HDL Cholesterol Vitamin B12 Urine Creatinine Urine Total Protein Heparin-induced Plt Ab Hep Bs Antibody, Quant Crossmatch 12/05/16 12/05/16 12/05/16 21:34 22:08 23:19 WBC RBC Hgb Hct MCV MCHC RDW Plt Count Lymph % (Auto) [place] # Seg Neutrophils % Seg Neuts % (Manual) Lymphocytes % (Manual) Monocytes % (Manual) Nucleated RBC % Seg Neutrophils # Seg Neutrophils # Man Lymphocytes # (Manual) Monocytes # (Manual) Percent Retic Haptoglobin PT INR Fibrinogen D-Dimer POC ABG pH 7.303 L POC ABG pCO2 18.3 L POC ABG pO2 73 L Sodium Potassium Chloride Carbon Dioxide BUN Creatinine Glucose POC Glucose 141 H 200 H Lactic Acid Calcium Phosphorus Magnesium Iron TIBC Total Bilirubin Direct Bilirubin AST ALT Alkaline Phosphatase Lactate Dehydrogenase CK-MB (CK-2) Troponin T C-Reactive Protein Total Protein Albumin Triglycerides Cholesterol HDL Cholesterol Vitamin B12 Urine Creatinine Urine Total Protein Heparin-induced Plt Ab Hep Bs Antibody, Quant Crossmatch 12/06/16 12/06/16 12/06/16 00:01 01:09 02:00 WBC RBC Hgb Hct MCV MCHC RDW Plt Count Lymph % (Auto) [place] # Seg Neutrophils % Seg Neuts % (Manual) Lymphocytes % (Manual) Monocytes % (Manual) Nucleated RBC % Seg Neutrophils # Seg Neutrophils # Man Lymphocytes # (Manual) Monocytes # (Manual) Percent Retic Haptoglobin PT INR Fibrinogen D-Dimer POC ABG pH POC ABG pCO2 POC ABG pO2 Sodium Potassium Chloride Carbon Dioxide BUN Creatinine Glucose POC Glucose 211 H 116 H 57 L Lactic Acid Calcium Phosphorus Magnesium Iron TIBC Total Bilirubin Direct Bilirubin AST ALT Alkaline Phosphatase Lactate Dehydrogenase CK-MB (CK-2) Troponin T C-Reactive Protein Total Protein Albumin Triglycerides Cholesterol HDL Cholesterol Vitamin B12 Urine Creatinine Urine Total Protein Heparin-induced Plt Ab Hep Bs Antibody, Quant Crossmatch 12/06/16 12/06/16 12/06/16 04:14 04:50 04:50 WBC RBC 2.68 L Hgb 7.6 L Hct 23.2 L MCV MCHC RDW 18.9 H Plt Count Lymph % (Auto) [place] # Seg Neutrophils % Seg Neuts % (Manual) 32.0 L Lymphocytes % (Manual) Monocytes % (Manual) Nucleated RBC % 3.0 H Seg Neutrophils # Seg Neutrophils # Man Lymphocytes # (Manual) 0.9 L Monocytes # (Manual) Percent Retic Haptoglobin PT INR Fibrinogen D-Dimer POC ABG pH POC ABG pCO2 POC ABG pO2 Sodium Potassium 5.8 H D Chloride 111.5 H Carbon Dioxide 11 L BUN 52 H Creatinine 3.8 H Glucose 186 H POC Glucose 133 H Lactic Acid Calcium 6.5 L D Phosphorus 5.80 H Magnesium Iron TIBC Total Bilirubin Direct Bilirubin AST ALT Alkaline Phosphatase Lactate Dehydrogenase CK-MB (CK-2) Troponin T C-Reactive Protein Total Protein Albumin Triglycerides Cholesterol HDL Cholesterol Vitamin B12 Urine Creatinine Urine Total Protein Heparin-induced Plt Ab Hep Bs Antibody, Quant Crossmatch 12/06/16 12/06/16 12/06/16 04:50 05:04 05:07 WBC RBC Hgb Hct MCV MCHC RDW Plt Count Lymph % (Auto) [place] # Seg Neutrophils % Seg Neuts % (Manual) Lymphocytes % (Manual) Monocytes % (Manual) Nucleated RBC % Seg Neutrophils # Seg Neutrophils # Man Lymphocytes # (Manual) Monocytes # (Manual) Percent Retic Haptoglobin PT INR Fibrinogen D-Dimer POC ABG pH POC ABG pCO2 13.0 L POC ABG pO2 111 H Sodium Potassium Chloride Carbon Dioxide BUN Creatinine Glucose POC Glucose 127 H Lactic Acid 6.50 H* Calcium Phosphorus Magnesium Iron TIBC Total Bilirubin Direct Bilirubin AST ALT Alkaline Phosphatase Lactate Dehydrogenase CK-MB (CK-2) Troponin T C-Reactive Protein Total Protein Albumin Triglycerides Cholesterol HDL Cholesterol Vitamin B12 Urine Creatinine Urine Total Protein Heparin-induced Plt Ab Hep Bs Antibody, Quant Crossmatch 12/06/16 12/06/16 12/06/16 06:10 06:54 07:46 WBC RBC Hgb Hct MCV MCHC RDW Plt Count Lymph % (Auto) [place] # Seg Neutrophils % Seg Neuts % (Manual) Lymphocytes % (Manual) Monocytes % (Manual) Nucleated RBC % Seg Neutrophils # Seg Neutrophils # Man Lymphocytes # (Manual) Monocytes # (Manual) Percent Retic Haptoglobin PT INR Fibrinogen D-Dimer POC ABG pH POC ABG pCO2 POC ABG pO2 Sodium Potassium Chloride Carbon Dioxide BUN Creatinine Glucose POC Glucose 219 H 237 H 158 H Lactic Acid Calcium Phosphorus Magnesium Iron TIBC Total Bilirubin Direct Bilirubin AST ALT Alkaline Phosphatase Lactate Dehydrogenase CK-MB (CK-2) Troponin T C-Reactive Protein Total Protein Albumin Triglycerides Cholesterol HDL Cholesterol Vitamin B12 Urine Creatinine Urine Total Protein Heparin-induced Plt Ab Hep Bs Antibody, Quant Crossmatch 12/06/16 12/06/16 12/06/16 08:55 10:27 11:58 WBC RBC Hgb Hct MCV MCHC RDW Plt Count Lymph % (Auto) [place] # Seg Neutrophils % Seg Neuts % (Manual) Lymphocytes % (Manual) Monocytes % (Manual) Nucleated RBC % Seg Neutrophils # Seg Neutrophils # Man Lymphocytes # (Manual) Monocytes # (Manual) Percent Retic Haptoglobin PT INR Fibrinogen D-Dimer POC ABG pH POC ABG pCO2 POC ABG pO2 Sodium Potassium Chloride Carbon Dioxide BUN Creatinine Glucose POC Glucose 40 L 128 H 144 H Lactic Acid Calcium Phosphorus Magnesium Iron TIBC Total Bilirubin Direct Bilirubin AST ALT Alkaline Phosphatase Lactate Dehydrogenase CK-MB (CK-2) Troponin T C-Reactive Protein Total Protein Albumin Triglycerides Cholesterol HDL Cholesterol Vitamin B12 Urine Creatinine Urine Total Protein Heparin-induced Plt Ab Hep Bs Antibody, Quant Crossmatch 12/06/16 12/06/16 12/06/16 18:14 19:00 19:06 WBC RBC Hgb Hct MCV MCHC RDW Plt Count Lymph % (Auto) [place] # Seg Neutrophils % Seg Neuts % (Manual) Lymphocytes % (Manual) Monocytes % (Manual) Nucleated RBC % Seg Neutrophils # Seg Neutrophils # Man Lymphocytes # (Manual) Monocytes # (Manual) Percent Retic Haptoglobin PT INR Fibrinogen D-Dimer POC ABG pH POC ABG pCO2 POC ABG pO2 Sodium 149 H Potassium 5.6 H Chloride 115.9 H Carbon Dioxide 13 L BUN 56 H Creatinine 4.3 H Glucose 124 H POC Glucose 55 L 148 H Lactic Acid Calcium 6.0 L Phosphorus Magnesium Iron TIBC Total Bilirubin Direct Bilirubin AST ALT Alkaline Phosphatase Lactate Dehydrogenase CK-MB (CK-2) Troponin T C-Reactive Protein Total Protein Albumin Triglycerides Cholesterol HDL Cholesterol Vitamin B12 Urine Creatinine Urine Total Protein Heparin-induced Plt Ab Hep Bs Antibody, Quant Crossmatch 12/06/16 12/06/16 12/07/16 21:24 21:51 02:32 WBC RBC Hgb Hct MCV MCHC RDW Plt Count Lymph % (Auto) [place] # Seg Neutrophils % Seg Neuts % (Manual) Lymphocytes % (Manual) Monocytes % (Manual) Nucleated RBC % Seg Neutrophils # Seg Neutrophils # Man Lymphocytes # (Manual) Monocytes # (Manual) Percent Retic Haptoglobin PT INR Fibrinogen D-Dimer POC ABG pH POC ABG pCO2 17.0 L POC ABG pO2 142 H Sodium Potassium Chloride Carbon Dioxide BUN Creatinine Glucose POC Glucose 107 H 175 H Lactic Acid Calcium Phosphorus Magnesium Iron TIBC Total Bilirubin Direct Bilirubin AST ALT Alkaline Phosphatase Lactate Dehydrogenase CK-MB (CK-2) Troponin T C-Reactive Protein Total Protein Albumin Triglycerides Cholesterol HDL Cholesterol Vitamin B12 Urine Creatinine Urine Total Protein Heparin-induced Plt Ab Hep Bs Antibody, Quant Crossmatch 12/07/16 12/07/16 12/07/16 05:01 05:25 06:00 WBC RBC 2.52 L Hgb 7.1 L Hct 22.1 L MCV MCHC RDW 19.3 H Plt Count 90 L Lymph % (Auto) [place] # Seg Neutrophils % Seg Neuts % (Manual) 75.0 H Lymphocytes % (Manual) 11.0 L Monocytes % (Manual) Nucleated RBC % Seg Neutrophils # Seg Neutrophils # Man Lymphocytes # (Manual) 0.7 L Monocytes # (Manual) Percent Retic Haptoglobin PT INR Fibrinogen D-Dimer POC ABG pH 7.300 L POC ABG pCO2 17.1 L POC ABG pO2 140 H Sodium Potassium Chloride Carbon Dioxide BUN Creatinine Glucose POC Glucose 279 H Lactic Acid Calcium Phosphorus Magnesium Iron TIBC Total Bilirubin Direct Bilirubin AST ALT Alkaline Phosphatase Lactate Dehydrogenase CK-MB (CK-2) Troponin T C-Reactive Protein Total Protein Albumin Triglycerides Cholesterol HDL Cholesterol Vitamin B12 Urine Creatinine Urine Total Protein Heparin-induced Plt Ab Hep Bs Antibody, Quant Crossmatch 12/07/16 12/07/16 12/07/16 06:00 06:00 07:30 WBC RBC Hgb Hct MCV MCHC RDW Plt Count Lymph % (Auto) [place] # Seg Neutrophils % Seg Neuts % (Manual) Lymphocytes % (Manual) Monocytes % (Manual) Nucleated RBC % Seg Neutrophils # Seg Neutrophils # Man Lymphocytes # (Manual) Monocytes # (Manual) Percent Retic Haptoglobin PT INR Fibrinogen D-Dimer POC ABG pH POC ABG pCO2 POC ABG pO2 Sodium Potassium Chloride Carbon Dioxide BUN Creatinine Glucose POC Glucose Lactic Acid 6.90 H* Calcium Phosphorus 6.80 H Magnesium Iron TIBC Total Bilirubin Direct Bilirubin AST ALT Alkaline Phosphatase Lactate Dehydrogenase CK-MB (CK-2) Troponin T C-Reactive Protein 39.40 H Total Protein Albumin Triglycerides Cholesterol HDL Cholesterol Vitamin B12 Urine Creatinine Urine Total Protein Heparin-induced Plt Ab Hep Bs Antibody, Quant Crossmatch 12/07/16 12/07/16 12/07/16 08:40 10:53 14:31 WBC RBC Hgb Hct MCV MCHC RDW Plt Count Lymph % (Auto) [place] # Seg Neutrophils % Seg Neuts % (Manual) Lymphocytes % (Manual) Monocytes % (Manual) Nucleated RBC % Seg Neutrophils # Seg Neutrophils # Man Lymphocytes # (Manual) Monocytes # (Manual) Percent Retic Haptoglobin PT INR Fibrinogen D-Dimer POC ABG pH POC ABG pCO2 POC ABG pO2 Sodium Potassium 7.0 H* D Chloride 112.4 H Carbon Dioxide 8 L* BUN 61 H Creatinine 5.1 H Glucose 213 H POC Glucose 353 H 52 L Lactic Acid Calcium 5.8 L* Phosphorus Magnesium Iron TIBC Total Bilirubin Direct Bilirubin AST ALT Alkaline Phosphatase Lactate Dehydrogenase CK-MB (CK-2) Troponin T C-Reactive Protein Total Protein Albumin Triglycerides Cholesterol HDL Cholesterol Vitamin B12 Urine Creatinine Urine Total Protein Heparin-induced Plt Ab Hep Bs Antibody, Quant Crossmatch 12/07/16 12/07/16 12/07/16 14:45 15:33 16:22 WBC RBC Hgb Hct MCV MCHC RDW Plt Count Lymph % (Auto) [place] # Seg Neutrophils % Seg Neuts % (Manual) Lymphocytes % (Manual) Monocytes % (Manual) Nucleated RBC % Seg Neutrophils # Seg Neutrophils # Man Lymphocytes # (Manual) Monocytes # (Manual) Percent Retic Haptoglobin PT 17.5 H INR 1.44 H Fibrinogen D-Dimer POC ABG pH POC ABG pCO2 POC ABG pO2 Sodium Potassium Chloride Carbon Dioxide BUN Creatinine Glucose POC Glucose < 40 L 118 H Lactic Acid Calcium Phosphorus Magnesium Iron TIBC Total Bilirubin Direct Bilirubin AST ALT Alkaline Phosphatase Lactate Dehydrogenase CK-MB (CK-2) Troponin T C-Reactive Protein Total Protein Albumin Triglycerides Cholesterol HDL Cholesterol Vitamin B12 Urine Creatinine Urine Total Protein Heparin-induced Plt Ab Hep Bs Antibody, Quant Crossmatch 12/07/16 12/07/16 12/07/16 21:35 21:35 21:58 WBC RBC Hgb Hct MCV MCHC RDW Plt Count Lymph % (Auto) [place] # Seg Neutrophils % Seg Neuts % (Manual) Lymphocytes % (Manual) Monocytes % (Manual) Nucleated RBC % Seg Neutrophils # Seg Neutrophils # Man Lymphocytes # (Manual) Monocytes # (Manual) Percent Retic Haptoglobin PT INR Fibrinogen D-Dimer POC ABG pH POC ABG pCO2 POC ABG pO2 Sodium 150 H Potassium 3.3 L D Chloride 111.4 H Carbon Dioxide 21 L D BUN 22 H Creatinine 2.6 H Glucose 23 L* POC Glucose < 40 L Lactic Acid Calcium Phosphorus Magnesium Iron TIBC Total Bilirubin 1.40 H Direct Bilirubin 0.9 H AST 94 H ALT 142 H Alkaline Phosphatase 249 H Lactate Dehydrogenase CK-MB (CK-2) Troponin T C-Reactive Protein Total Protein 4.6 L D Albumin 2.1 L Triglycerides Cholesterol HDL Cholesterol Vitamin B12 Urine Creatinine Urine Total Protein Heparin-induced Plt Ab Hep Bs Antibody, Quant Crossmatch 12/07/16 12/08/16 12/08/16 23:31 04:43 04:50 WBC RBC 2.35 L Hgb 6.6 L Hct 20.1 L MCV MCHC RDW 17.8 H Plt Count 48 L Lymph % (Auto) [place] # Seg Neutrophils % Seg Neuts % (Manual) Lymphocytes % (Manual) Monocytes % (Manual) Nucleated RBC % Seg Neutrophils # Seg Neutrophils # Man Lymphocytes # (Manual) 0.9 L Monocytes # (Manual) Percent Retic Haptoglobin PT INR Fibrinogen D-Dimer POC ABG pH 7.586 H POC ABG pCO2 17.7 L POC ABG pO2 150 H Sodium Potassium Chloride Carbon Dioxide BUN Creatinine Glucose POC Glucose 42 L Lactic Acid Calcium Phosphorus Magnesium Iron TIBC Total Bilirubin Direct Bilirubin AST ALT Alkaline Phosphatase Lactate Dehydrogenase CK-MB (CK-2) Troponin T C-Reactive Protein Total Protein Albumin Triglycerides Cholesterol HDL Cholesterol Vitamin B12 Urine Creatinine Urine Total Protein Heparin-induced Plt Ab Hep Bs Antibody, Quant Crossmatch 12/08/16 12/08/16 12/08/16 04:50 04:59 06:54 WBC RBC Hgb Hct MCV MCHC RDW Plt Count Lymph % (Auto) [place] # Seg Neutrophils % Seg Neuts % (Manual) Lymphocytes % (Manual) Monocytes % (Manual) Nucleated RBC % Seg Neutrophils # Seg Neutrophils # Man Lymphocytes # (Manual) Monocytes # (Manual) Percent Retic Haptoglobin PT INR Fibrinogen D-Dimer POC ABG pH POC ABG pCO2 POC ABG pO2 Sodium 149 H Potassium 3.2 L Chloride 111.8 H Carbon Dioxide 17 L BUN 26 H Creatinine 3.4 H Glucose 163 H POC Glucose 204 H 203 H Lactic Acid Calcium 7.7 L Phosphorus 2.40 L D Magnesium Iron TIBC Total Bilirubin Direct Bilirubin AST ALT Alkaline Phosphatase Lactate Dehydrogenase CK-MB (CK-2) Troponin T C-Reactive Protein Total Protein Albumin Triglycerides Cholesterol HDL Cholesterol Vitamin B12 Urine Creatinine Urine Total Protein Heparin-induced Plt Ab Hep Bs Antibody, Quant Crossmatch 12/08/16 12/08/16 12/08/16 08:04 08:46 08:46 WBC RBC Hgb Hct MCV MCHC RDW Plt Count Lymph % (Auto) [place] # Seg Neutrophils % Seg Neuts % (Manual) Lymphocytes % (Manual) Monocytes % (Manual) Nucleated RBC % Seg Neutrophils # Seg Neutrophils # Man Lymphocytes # (Manual) Monocytes # (Manual) Percent Retic Haptoglobin PT INR Fibrinogen D-Dimer POC ABG pH POC ABG pCO2 POC ABG pO2 Sodium 147 H Potassium 2.9 L* Chloride 110.6 H Carbon Dioxide 17 L BUN 28 H Creatinine 3.6 H Glucose 127 H POC Glucose 205 H Lactic Acid Calcium 7.3 L Phosphorus Magnesium Iron TIBC Total Bilirubin Direct Bilirubin AST ALT Alkaline Phosphatase Lactate Dehydrogenase CK-MB (CK-2) Troponin T C-Reactive Protein Total Protein Albumin Triglycerides Cholesterol HDL Cholesterol Vitamin B12 Urine Creatinine Urine Total Protein Heparin-induced Plt Ab Hep Bs Antibody, Quant Crossmatch See Detail 12/08/16 12/08/16 12/08/16 12:36 19:00 19:00 WBC RBC Hgb Hct MCV MCHC RDW Plt Count Lymph % (Auto) [place] # Seg Neutrophils % Seg Neuts % (Manual) Lymphocytes % (Manual) Monocytes % (Manual) Nucleated RBC % Seg Neutrophils # Seg Neutrophils # Man Lymphocytes # (Manual) Monocytes # (Manual) Percent Retic Haptoglobin PT 15.3 H INR 1.22 H Fibrinogen 563 H D-Dimer 5507.36 H POC ABG pH POC ABG pCO2 POC ABG pO2 Sodium Potassium Chloride Carbon Dioxide 21 L BUN Creatinine 1.7 H D Glucose 155 H POC Glucose 181 H Lactic Acid Calcium Phosphorus Magnesium Iron TIBC Total Bilirubin Direct Bilirubin AST ALT Alkaline Phosphatase Lactate Dehydrogenase CK-MB (CK-2) Troponin T C-Reactive Protein Total Protein Albumin Triglycerides Cholesterol HDL Cholesterol Vitamin B12 Urine Creatinine Urine Total Protein Heparin-induced Plt Ab Hep Bs Antibody, Quant Crossmatch 12/08/16 12/08/16 12/08/16 19:00 19:00 21:30 WBC RBC 2.76 L Hgb 7.8 L Hct 23.7 L MCV MCHC RDW 17.0 H Plt Count 38 L Lymph % (Auto) [place] # Seg Neutrophils % Seg Neuts % (Manual) Lymphocytes % (Manual) Monocytes % (Manual) Nucleated RBC % Seg Neutrophils # Seg Neutrophils # Man Lymphocytes # (Manual) Monocytes # (Manual) Percent Retic Haptoglobin 271 H PT INR Fibrinogen D-Dimer POC ABG pH POC ABG pCO2 POC ABG pO2 Sodium Potassium Chloride Carbon Dioxide BUN Creatinine Glucose POC Glucose Lactic Acid Calcium Phosphorus Magnesium Iron TIBC Total Bilirubin Direct Bilirubin AST ALT Alkaline Phosphatase Lactate Dehydrogenase 382 H CK-MB (CK-2) Troponin T C-Reactive Protein Total Protein Albumin Triglycerides Cholesterol HDL Cholesterol Vitamin B12 Urine Creatinine Urine Total Protein Heparin-induced Plt Ab Hep Bs Antibody, Quant Crossmatch 12/08/16 12/08/16 12/09/16 23:32 23:44 05:22 WBC RBC Hgb Hct MCV MCHC RDW Plt Count Lymph % (Auto) [place] # Seg Neutrophils % Seg Neuts % (Manual) Lymphocytes % (Manual) Monocytes % (Manual) Nucleated RBC % Seg Neutrophils # Seg Neutrophils # Man Lymphocytes # (Manual) Monocytes # (Manual) Percent Retic Haptoglobin PT INR Fibrinogen D-Dimer POC ABG pH 7.498 H POC ABG pCO2 25.2 L POC ABG pO2 137 H Sodium Potassium Chloride Carbon Dioxide BUN Creatinine Glucose POC Glucose 311 H 113 H Lactic Acid Calcium Phosphorus Magnesium Iron TIBC Total Bilirubin Direct Bilirubin AST ALT Alkaline Phosphatase Lactate Dehydrogenase CK-MB (CK-2) Troponin T C-Reactive Protein Total Protein Albumin Triglycerides Cholesterol HDL Cholesterol Vitamin B12 Urine Creatinine Urine Total Protein Heparin-induced Plt Ab Hep Bs Antibody, Quant Crossmatch 12/09/16 12/09/16 12/09/16 06:00 11:29 11:59 WBC RBC Hgb Hct MCV MCHC RDW Plt Count Lymph % (Auto) [place] # Seg Neutrophils % Seg Neuts % (Manual) Lymphocytes % (Manual) Monocytes % (Manual) Nucleated RBC % Seg Neutrophils # Seg Neutrophils # Man Lymphocytes # (Manual) Monocytes # (Manual) Percent Retic 0.23 L Haptoglobin PT INR Fibrinogen D-Dimer POC ABG pH POC ABG pCO2 POC ABG pO2 Sodium Potassium Chloride 110.2 H Carbon Dioxide 18 L BUN 19 H Creatinine 2.5 H Glucose 105 H POC Glucose 254 H Lactic Acid Calcium Phosphorus 2.00 L Magnesium Iron TIBC Total Bilirubin Direct Bilirubin AST ALT Alkaline Phosphatase Lactate Dehydrogenase CK-MB (CK-2) Troponin T C-Reactive Protein Total Protein Albumin Triglycerides Cholesterol HDL Cholesterol Vitamin B12 Urine Creatinine Urine Total Protein Heparin-induced Plt Ab Hep Bs Antibody, Quant Crossmatch 12/09/16 12/09/16 12/09/16 12:02 13:27 13:27 WBC RBC Hgb Hct MCV MCHC RDW Plt Count Lymph % (Auto) [place] # Seg Neutrophils % Seg Neuts % (Manual) Lymphocytes % (Manual) Monocytes % (Manual) Nucleated RBC % Seg Neutrophils # Seg Neutrophils # Man Lymphocytes # (Manual) Monocytes # (Manual) Percent Retic Haptoglobin PT INR Fibrinogen D-Dimer POC ABG pH 7.326 L POC ABG pCO2 POC ABG pO2 115 H Sodium Potassium Chloride Carbon Dioxide BUN Creatinine Glucose POC Glucose Lactic Acid Calcium Phosphorus Magnesium Iron 15 L TIBC 134 L Total Bilirubin Direct Bilirubin AST ALT Alkaline Phosphatase Lactate Dehydrogenase CK-MB (CK-2) Troponin T C-Reactive Protein Total Protein Albumin Triglycerides Cholesterol HDL Cholesterol Vitamin B12 > 2000 H Urine Creatinine Urine Total Protein Heparin-induced Plt Ab Hep Bs Antibody, Quant Crossmatch 12/09/16 12/09/16 12/09/16 13:27 13:27 16:28 WBC RBC Hgb Hct MCV MCHC RDW Plt Count Lymph % (Auto) [place] # Seg Neutrophils % Seg Neuts % (Manual) Lymphocytes % (Manual) Monocytes % (Manual) Nucleated RBC % Seg Neutrophils # Seg Neutrophils # Man Lymphocytes # (Manual) Monocytes # (Manual) Percent Retic Haptoglobin PT INR Fibrinogen D-Dimer POC ABG pH POC ABG pCO2 POC ABG pO2 Sodium Potassium Chloride Carbon Dioxide BUN Creatinine Glucose POC Glucose 199 H Lactic Acid Calcium Phosphorus Magnesium Iron TIBC Total Bilirubin Direct Bilirubin AST ALT Alkaline Phosphatase Lactate Dehydrogenase CK-MB (CK-2) Troponin T C-Reactive Protein Total Protein Albumin Triglycerides Cholesterol HDL Cholesterol Vitamin B12 Urine Creatinine Urine Total Protein Heparin-induced Plt Ab Weak positive H Hep Bs Antibody, Quant <5 L Crossmatch 12/09/16 12/09/16 12/10/16 23:27 Unknown 05:36 WBC 11.3 H RBC 2.92 L Hgb 8.4 L Hct 25.3 L MCV MCHC RDW 16.9 H Plt Count 31 L Lymph % (Auto) [place] # Seg Neutrophils % Seg Neuts % (Manual) Lymphocytes % (Manual) Monocytes % (Manual) Nucleated RBC % Seg Neutrophils # Seg Neutrophils # Man Lymphocytes # (Manual) Monocytes # (Manual) Percent Retic Haptoglobin PT INR Fibrinogen D-Dimer POC ABG pH POC ABG pCO2 POC ABG pO2 Sodium Potassium Chloride Carbon Dioxide BUN Creatinine Glucose POC Glucose 247 H 248 H Lactic Acid Calcium Phosphorus Magnesium Iron TIBC Total Bilirubin Direct Bilirubin AST ALT Alkaline Phosphatase Lactate Dehydrogenase CK-MB (CK-2) Troponin T C-Reactive Protein Total Protein Albumin Triglycerides Cholesterol HDL Cholesterol Vitamin B12 Urine Creatinine Urine Total Protein Heparin-induced Plt Ab Hep Bs Antibody, Quant Crossmatch 12/10/16 12/10/16 12/10/16 09:55 09:55 11:49 WBC 21.2 H RBC 3.37 L Hgb 9.6 L Hct 29.5 L MCV MCHC RDW 16.3 H Plt Count 102 L D Lymph % (Auto) [place] # Seg Neutrophils % Seg Neuts % (Manual) Lymphocytes % (Manual) Monocytes % (Manual) Nucleated RBC % Seg Neutrophils # Seg Neutrophils # Man Lymphocytes # (Manual) Monocytes # (Manual) Percent Retic Haptoglobin PT INR Fibrinogen D-Dimer POC ABG pH POC ABG pCO2 POC ABG pO2 Sodium Potassium Chloride 107.4 H Carbon Dioxide 21 L BUN 37 H Creatinine 4.2 H D Glucose 174 H POC Glucose 265 H Lactic Acid Calcium Phosphorus Magnesium Iron TIBC Total Bilirubin Direct Bilirubin AST ALT Alkaline Phosphatase Lactate Dehydrogenase CK-MB (CK-2) Troponin T C-Reactive Protein Total Protein Albumin Triglycerides Cholesterol HDL Cholesterol Vitamin B12 Urine Creatinine Urine Total Protein Heparin-induced Plt Ab Hep Bs Antibody, Quant Crossmatch 12/10/16 12/10/16 12/11/16 17:56 23:44 04:30 WBC 23.5 H RBC 3.46 L Hgb 9.7 L Hct 30.1 L MCV MCHC RDW 16.4 H Plt Count 115 L Lymph % (Auto) [place] # Seg Neutrophils % Seg Neuts % (Manual) 84.0 H Lymphocytes % (Manual) 5.0 L Monocytes % (Manual) 10.0 H Nucleated RBC % 1.0 H Seg Neutrophils # Seg Neutrophils # Man 19.7 H Lymphocytes # (Manual) Monocytes # (Manual) 2.4 H Percent Retic Haptoglobin PT INR Fibrinogen D-Dimer POC ABG pH POC ABG pCO2 POC ABG pO2 Sodium Potassium Chloride Carbon Dioxide BUN Creatinine Glucose POC Glucose 118 H 378 H Lactic Acid Calcium Phosphorus Magnesium Iron TIBC Total Bilirubin Direct Bilirubin AST ALT Alkaline Phosphatase Lactate Dehydrogenase CK-MB (CK-2) Troponin T C-Reactive Protein Total Protein Albumin Triglycerides Cholesterol HDL Cholesterol Vitamin B12 Urine Creatinine Urine Total Protein Heparin-induced Plt Ab Hep Bs Antibody, Quant Crossmatch 12/11/16 12/11/16 12/11/16 04:30 05:33 12:48 WBC RBC Hgb Hct MCV MCHC RDW Plt Count Lymph % (Auto) [place] # Seg Neutrophils % Seg Neuts % (Manual) Lymphocytes % (Manual) Monocytes % (Manual) Nucleated RBC % Seg Neutrophils # Seg Neutrophils # Man Lymphocytes # (Manual) Monocytes # (Manual) Percent Retic Haptoglobin PT INR Fibrinogen D-Dimer POC ABG pH POC ABG pCO2 POC ABG pO2 Sodium Potassium Chloride Carbon Dioxide 21 L BUN 50 H Creatinine 4.8 H Glucose 303 H POC Glucose 335 H 325 H Lactic Acid Calcium 8.2 L Phosphorus Magnesium Iron TIBC Total Bilirubin Direct Bilirubin AST ALT Alkaline Phosphatase Lactate Dehydrogenase CK-MB (CK-2) Troponin T C-Reactive Protein Total Protein Albumin Triglycerides Cholesterol HDL Cholesterol Vitamin B12 Urine Creatinine Urine Total Protein Heparin-induced Plt Ab Hep Bs Antibody, Quant Crossmatch 12/11/16 12/11/16 12/12/16 17:49 21:16 00:49 WBC RBC Hgb Hct MCV MCHC RDW Plt Count Lymph % (Auto) [place] # Seg Neutrophils % Seg Neuts % (Manual) Lymphocytes % (Manual) Monocytes % (Manual) Nucleated RBC % Seg Neutrophils # Seg Neutrophils # Man Lymphocytes # (Manual) Monocytes # (Manual) Percent Retic Haptoglobin PT INR Fibrinogen D-Dimer POC ABG pH POC ABG pCO2 POC ABG pO2 Sodium Potassium Chloride Carbon Dioxide BUN Creatinine Glucose POC Glucose 368 H 162 H 225 H Lactic Acid Calcium Phosphorus Magnesium Iron TIBC Total Bilirubin Direct Bilirubin AST ALT Alkaline Phosphatase Lactate Dehydrogenase CK-MB (CK-2) Troponin T C-Reactive Protein Total Protein Albumin Triglycerides Cholesterol HDL Cholesterol Vitamin B12 Urine Creatinine Urine Total Protein Heparin-induced Plt Ab Hep Bs Antibody, Quant Crossmatch 12/12/16 12/12/16 12/12/16 06:09 07:52 08:18 WBC 24.1 H RBC 3.16 L Hgb 9.0 L Hct 29.4 L MCV MCHC RDW 16.6 H Plt Count 96 L Lymph % (Auto) [place] # Seg Neutrophils % Seg Neuts % (Manual) 75.0 H Lymphocytes % (Manual) Monocytes % (Manual) Nucleated RBC % Seg Neutrophils # Seg Neutrophils # Man 18.1 H Lymphocytes # (Manual) Monocytes # (Manual) 1.4 H Percent Retic Haptoglobin PT INR Fibrinogen D-Dimer POC ABG pH POC ABG pCO2 POC ABG pO2 Sodium Potassium Chloride Carbon Dioxide BUN Creatinine Glucose POC Glucose 428 H 418 H Lactic Acid Calcium Phosphorus Magnesium Iron TIBC Total Bilirubin Direct Bilirubin AST ALT Alkaline Phosphatase Lactate Dehydrogenase CK-MB (CK-2) Troponin T C-Reactive Protein Total Protein Albumin Triglycerides Cholesterol HDL Cholesterol Vitamin B12 Urine Creatinine Urine Total Protein Heparin-induced Plt Ab Hep Bs Antibody, Quant Crossmatch 12/12/16 12/12/16 12/12/16 08:18 11:31 17:03 WBC RBC Hgb Hct MCV MCHC RDW Plt Count Lymph % (Auto) [place] # Seg Neutrophils % Seg Neuts % (Manual) Lymphocytes % (Manual) Monocytes % (Manual) Nucleated RBC % Seg Neutrophils # Seg Neutrophils # Man Lymphocytes # (Manual) Monocytes # (Manual) Percent Retic Haptoglobin PT INR Fibrinogen D-Dimer POC ABG pH POC ABG pCO2 POC ABG pO2 Sodium Potassium Chloride Carbon Dioxide 12 L D BUN 41 H Creatinine 4.5 H Glucose 369 H POC Glucose 212 H 422 H Lactic Acid Calcium Phosphorus Magnesium Iron TIBC Total Bilirubin Direct Bilirubin AST ALT Alkaline Phosphatase Lactate Dehydrogenase CK-MB (CK-2) Troponin T C-Reactive Protein Total Protein Albumin Triglycerides Cholesterol HDL Cholesterol Vitamin B12 Urine Creatinine Urine Total Protein Heparin-induced Plt Ab Hep Bs Antibody, Quant Crossmatch 12/12/16 12/13/16 12/13/16 21:35 07:49 07:49 WBC 24.0 H RBC 2.90 L Hgb 8.3 L Hct 25.8 L MCV MCHC RDW 15.5 H Plt Count 120 L Lymph % (Auto) [place] # Seg Neutrophils % Seg Neuts % (Manual) 89.0 H Lymphocytes % (Manual) 7.0 L Monocytes % (Manual) Nucleated RBC % Seg Neutrophils # Seg Neutrophils # Man 21.4 H Lymphocytes # (Manual) Monocytes # (Manual) Percent Retic Haptoglobin PT INR Fibrinogen D-Dimer POC ABG pH POC ABG pCO2 POC ABG pO2 Sodium Potassium 3.2 L Chloride Carbon Dioxide BUN 21 H Creatinine 3.0 H Glucose 21 L* POC Glucose 185 H Lactic Acid Calcium Phosphorus Magnesium Iron TIBC Total Bilirubin Direct Bilirubin AST ALT Alkaline Phosphatase Lactate Dehydrogenase CK-MB (CK-2) Troponin T C-Reactive Protein Total Protein Albumin Triglycerides Cholesterol HDL Cholesterol Vitamin B12 Urine Creatinine Urine Total Protein Heparin-induced Plt Ab Hep Bs Antibody, Quant Crossmatch 12/13/16 12/13/16 12/13/16 09:57 11:02 16:52 WBC RBC Hgb Hct MCV MCHC RDW Plt Count Lymph % (Auto) [place] # Seg Neutrophils % Seg Neuts % (Manual) Lymphocytes % (Manual) Monocytes % (Manual) Nucleated RBC % Seg Neutrophils # Seg Neutrophils # Man Lymphocytes # (Manual) Monocytes # (Manual) Percent Retic Haptoglobin PT INR Fibrinogen D-Dimer POC ABG pH POC ABG pCO2 POC ABG pO2 Sodium Potassium Chloride Carbon Dioxide BUN Creatinine Glucose POC Glucose < 40 L 231 H 312 H Lactic Acid Calcium Phosphorus Magnesium Iron TIBC Total Bilirubin Direct Bilirubin AST ALT Alkaline Phosphatase Lactate Dehydrogenase CK-MB (CK-2) Troponin T C-Reactive Protein Total Protein Albumin Triglycerides Cholesterol HDL Cholesterol Vitamin B12 Urine Creatinine Urine Total Protein Heparin-induced Plt Ab Hep Bs Antibody, Quant Crossmatch 12/13/16 12/14/16 12/14/16 21:32 07:07 07:07 WBC 16.7 H RBC 2.80 L Hgb 7.9 L Hct 24.7 L MCV MCHC RDW 15.4 H Plt Count 131 L Lymph % (Auto) 13.1 L [place] # 1.2 H Seg Neutrophils % 78.3 H Seg Neuts % (Manual) Lymphocytes % (Manual) Monocytes % (Manual) Nucleated RBC % Seg Neutrophils # 13.1 H Seg Neutrophils # Man Lymphocytes # (Manual) Monocytes # (Manual) Percent Retic Haptoglobin PT INR Fibrinogen D-Dimer POC ABG pH POC ABG pCO2 POC ABG pO2 Sodium Potassium 3.5 L Chloride Carbon Dioxide BUN 30 H Creatinine 4.6 H D Glucose 181 H POC Glucose 275 H Lactic Acid Calcium 7.7 L Phosphorus Magnesium Iron TIBC Total Bilirubin Direct Bilirubin AST ALT Alkaline Phosphatase Lactate Dehydrogenase CK-MB (CK-2) Troponin T C-Reactive Protein Total Protein Albumin Triglycerides Cholesterol HDL Cholesterol Vitamin B12 Urine Creatinine Urine Total Protein Heparin-induced Plt Ab Hep Bs Antibody, Quant Crossmatch 12/14/16 12/14/16 12/14/16 07:46 11:35 16:24 WBC RBC Hgb Hct MCV MCHC RDW Plt Count Lymph % (Auto) [place] # Seg Neutrophils % Seg Neuts % (Manual) Lymphocytes % (Manual) Monocytes % (Manual) Nucleated RBC % Seg Neutrophils # Seg Neutrophils # Man Lymphocytes # (Manual) Monocytes # (Manual) Percent Retic Haptoglobin PT INR Fibrinogen D-Dimer POC ABG pH POC ABG pCO2 POC ABG pO2 Sodium Potassium Chloride Carbon Dioxide BUN Creatinine Glucose POC Glucose 189 H 254 H 466 H Lactic Acid Calcium Phosphorus Magnesium Iron TIBC Total Bilirubin Direct Bilirubin AST ALT Alkaline Phosphatase Lactate Dehydrogenase CK-MB (CK-2) Troponin T C-Reactive Protein Total Protein Albumin Triglycerides Cholesterol HDL Cholesterol Vitamin B12 Urine Creatinine Urine Total Protein Heparin-induced Plt Ab Hep Bs Antibody, Quant Crossmatch 12/14/16 12/15/16 12/15/16 20:57 07:46 11:38 WBC RBC Hgb Hct MCV MCHC RDW Plt Count Lymph % (Auto) [place] # Seg Neutrophils % Seg Neuts % (Manual) Lymphocytes % (Manual) Monocytes % (Manual) Nucleated RBC % Seg Neutrophils # Seg Neutrophils # Man Lymphocytes # (Manual) Monocytes # (Manual) Percent Retic Haptoglobin PT INR Fibrinogen D-Dimer POC ABG pH POC ABG pCO2 POC ABG pO2 Sodium Potassium Chloride Carbon Dioxide BUN Creatinine Glucose POC Glucose 301 H 231 H 375 H Lactic Acid Calcium Phosphorus Magnesium Iron TIBC Total Bilirubin Direct Bilirubin AST ALT Alkaline Phosphatase Lactate Dehydrogenase CK-MB (CK-2) Troponin T C-Reactive Protein Total Protein Albumin Triglycerides Cholesterol HDL Cholesterol Vitamin B12 Urine Creatinine Urine Total Protein Heparin-induced Plt Ab Hep Bs Antibody, Quant Crossmatch
[2016-12-15] MEDS: LEVEMIR SUB-Q SCH (23:03)
[2016-12-15] MEDS: LOPRESSOR PO SCH (23:05)
[2016-12-16] MEDS: REGLAN IV SCH ×4 (00:16→23:32)
[2016-12-16] MEDS: FLAGYL 500 MG/100 ML 500 MG/100 ML BAG IV SCH ×5 (00:17→23:31)
[2016-12-16] MEDS: TOBRAMYCIN INHALATION (NICU) (40 MG/ML) IH SCH ×2 (00:23→14:21)
--- NOTE | 2016-12-16 09:13 | XRay Report ---
ROUTINE CHEST, TWO VIEWS: HISTORY: Followup pneumonia. The right upper lobe infiltrate has decreased by 50-75% since 12/13/16. Small right pleural effusion or atelectasis at the right lung base has resolved. Segmental atelectasis or infiltrate at the left lung base is unchanged. The left upper lobe remains clear. Heart and mediastinal structures are within normal limits. Left arm PICC remains in good position. IMPRESSION: Improvement in the right lung infiltrate as described.
[2016-12-16 09:30] LABS: Basophils % (Auto) 0.4 % (0.0-1.8); Hematocrit 24.4 % (30.3-42.9); Hemoglobin 7.9 gm/dl (10.1-14.3); Mean Corpuscular HGB Conc 33 % (30-34); Mean Corpuscular Hemoglobin 28 pg (28-32); Mean Corpuscular Volume 87 fl (79-97); Platelet Count 225 K/mm3 (140-440); Red Blood Count 2.83 M/mm3 (3.65-5.03); Red Cell Distribution Width 15.1 % (13.2-15.2); White Blood Count 17.2 K/mm3 (4.5-11.0)
[2016-12-16 09:42] LABS: BUN/Creatinine Ratio 7.96; Calcium 6.9 mg/dL (8.4-10.2); Chloride 102.3 mmol/L (98-107); Phosphorous 3.3 mg/dL (2.5-4.5); Potassium 3.6 mmol/L (3.6-5.0)
[2016-12-16] MEDS: PEPCID PO SCH (09:55)
[2016-12-16] MEDS: LOPRESSOR PO SCH ×2 (09:55→23:31)
[2016-12-16] MEDS: LOVENOX SUB-Q SCH (09:55)
[2016-12-16] MEDS: NOVOLOG SUB-Q SCH ×6 (09:57→23:31)
--- NOTE | 2016-12-16 10:28 | Progress Note ---
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 [facility] insulin use: D Qualified Code(s): E10.10 - Type 1 diabetes mellitus with ketoacidosis without coma Plan to address problem: S/P DKA on Insulin drip. Now on sliding scale insulin as per Primary team (2) Acute kidney failure with tubular necrosis Current Visit: No Status: Acute Plan to address problem: Renal function has worsened. Current serum creatinine 5.4 today from 4.6 yesterday. GFR 10 ml/min Patient was initiated on hemodialysis on 12/13/16 Patient shows no signs of renal recovery thus far Will request perm-catheter placement by Vascular Monitor I/O's Renally dose medications Obtain daily weights Renal diet (3) Hypertensive chronic kidney disease Current Visit: Yes Status: Acute Plan to address problem: Continue on anti-hypertensive agent. On Metoprolol. (4) Leukocytosis Current Visit: Yes Status: Acute Qualifiers: Leukocytosis type: L Plan to address problem: On Flagyl and Levaquin as per ID Subjective Date of service: 12/16/16 Principal diagnosis: Sepsis; Pneumonia Interval history: Patient seen lying in bed. Awake and alert. Reviewed renal plan to include perm- catheter placement Objective - Vital Signs Vital signs: Vital Signs - 12hr 12/15/16 12/15/16 12/16/16 23:40 23:50 00:00 Temperature 98.0 F Pulse Rate Pulse Rate [ 70 72 Anterior Bilateral Throughout] Pulse Rate [ 117 H Right Radial] Respiratory 18 18 Rate Respiratory 20 20 Rate [Anterior Bilateral Throughout] Blood Pressure 139/78 [Right Arm] O2 Sat by Pulse 97 Oximetry 12/16/16 12/16/16 12/16/16 04:43 07:56 07:57 Temperature 98.4 F Pulse Rate 106 H 56 L Pulse Rate [ Anterior Bilateral Throughout] Pulse Rate [ 106 H Right Radial] Respiratory 18 Rate Respiratory Rate [Anterior Bilateral Throughout] Blood Pressure 122/71 [Right Arm] O2 Sat by Pulse 98 Oximetry - General Appearance General appearance: well-developed, appears stated age, fatigue, other (anxious) EENT: ATNC, PERRL, hearing intact, vision intact Neck: no JVD, supple Respiratory: Present: Decreased Breath Sounds Cardiology: tachycardia, S1S2 Gastrointestinal: normoactive bowel sounds Integumentary: warm and dry Neurologic: alert and oriented x3 Musculoskeletal: other (1-2+edema to BLE) - Lab 12/16/16 Unknown 12/16/16 Unknown Most recent lab results Calcium 6.9 mg/dL (8.4-10.2) L 12/16/16 Unknown Phosphorus 3.30 mg/dL (2.5-4.5) 12/16/16 Unknown Magnesium 1.90 mg/dL (1.7-2.3) 12/11/16 04:30 Urine Creatinine 29.5 mg/dL (0.1-20.0) H 12/04/16 11:25 Urine Sodium 26 mEq/L 12/04/16 11:25 Urine Total Protein 33 mg/dL (5-11.8) H 12/04/16 11:25
--- NOTE | 2016-12-16 11:45 | Event Note ---
Date: 12/16/16 46 year old female with renal failure. Discussed with Cari De La Rosa NP of nephrology. Will need a permcath placed. NPO after MN. 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
--- NOTE | 2016-12-16 13:36 | Nuclear Medicine Report ---
Ventilation/perfusion lung scan. Findings: The ventilation study demonstrates diminished activity in the right upper lobe anteriorly. Diminished activity in the right lower lobe corresponds to elevation of the hemidiaphragm on a current chest x-ray. The perfusion scan demonstrates a matching perfusion defect in the anterior segment of the right upper lobe. There is also evidence of elevation of the right hemidiaphragm as seen on both the ventilation study and the current chest x-ray. No additional focal perfusion defects are seen. Impression: Matching ventilation/perfusion defects consistent with a low probability of embolic disease.
--- NOTE | 2016-12-16 16:40 | Progress Note ---
Assessment and Plan Assessment and plan: Cardiac arrest with V. fib - Likely from hyperkalemia, currently patient is stable - Was treated with amiodarone ARF, ATN - Creatinine is trending up - We'll going to continue hemodialysis Acute hypoxic respiratory failure extubated - Pulmonary is following Cardiac arrest was STEMI - Cardiology is following - Resolved DKA: - Status post insulin drip - On sliding and basal insulin Metabolic Acidosis - On bicarbonate - resolved Acute metabolic encephalopathy - resolved Leukocytosis +GNR in trach aspirate, pseudomonas aeruginosa - On levaquin and Flagyl - ID is following -DVT prophylaxis: SCDs only due to recent SAH Thrombocytopenia - Patient is morning was 225 Acute on chronic anemia of chronic disease s/p 2 unit of prbc, monitoring closely - Hemoglobin is 7.9 this morning Depression - Psych consult placed History Interval history: Patient was seen and evaluated this morning, patient said she has been ambulating and no new compliants. Hospitalist Physical - Physical exam Narrative exam: Not in cardiopulmonary distress. The patient appeared well nourished and normally developed. Vital signs as documented. Head exam is unremarkable. No scleral icterus . Neck is without jugular venous distension, thyromegaly, or carotid bruits. Lungs are clear to auscultation. Cardiac exam reveals regular rate and Rhythm. First and second heart sounds normal. No murmurs, rubs or gallops. Abdominal exam reveals normal bowel sounds, no masses, no organomegaly and no aortic enlargement. Extremities are nonedematous and both femoral and pedal pulses are normal. 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 No focal weakness. - Constitutional Vitals: Temp Pulse Resp BP Pulse Ox 98 F 74 18 157/88 96 12/16/16 08:00 12/16/16 14:28 12/16/16 14:28 12/16/16 08:00 12/16/16 10:00 General appearance: Present: no acute distress (resting comfortably) Results - Labs CBC & Chem 7: 12/16/16 Unknown 12/16/16 Unknown Labs: Laboratory Last Values WBC 17.2 K/mm3 (4.5-11.0) H 12/16/16 Unknown RBC 2.83 M/mm3 (3.65-5.03) L 12/16/16 Unknown Hgb 7.9 gm/dl (10.1-14.3) L 12/16/16 Unknown Hct 24.4 % (30.3-42.9) L 12/16/16 Unknown MCV 87 fl (79-97) 12/16/16 Unknown MCH 28 pg (28-32) 12/16/16 Unknown MCHC 33 % (30-34) 12/16/16 Unknown RDW 15.1 % (13.2-15.2) 12/16/16 Unknown Plt Count 225 K/mm3 (140-440) 12/16/16 Unknown Lymph % (Auto) 9.2 % (13.4-35.0) L 12/16/16 Unknown [place] % (Auto) 5.3 % (0.0-7.3) 12/16/16 Unknown Eos % (Auto) 1.0 % (0.0-4.3) 12/16/16 Unknown Baso % (Auto) 0.4 % (0.0-1.8) 12/16/16 Unknown Lymph # 1.6 K/mm3 (1.2-5.4) 12/16/16 Unknown [place] # 0.9 K/mm3 (0.0-0.8) H 12/16/16 Unknown Eos # 0.2 K/mm3 (0.0-0.4) 12/16/16 Unknown Baso # 0.1 K/mm3 (0.0-0.1) 12/16/16 Unknown Add Manual Diff Complete 12/13/16 07:49 Total Counted 100 12/13/16 07:49 Seg Neutrophils % 84.1 % (40.0-70.0) H 12/16/16 Unknown Seg Neuts % (Manual) 89.0 % (40.0-70.0) H 12/13/16 07:49 Band Neutrophils % 1.0 % 12/13/16 07:49 Lymphocytes % (Manual) 7.0 % (13.4-35.0) L 12/13/16 07:49 Reactive Lymphs % (Man) 0 % 12/13/16 07:49 Monocytes % (Manual) 3.0 % (0.0-7.3) 12/13/16 07:49 Eosinophils % (Manual) 0 % (0.0-4.3) 12/13/16 07:49 Basophils % (Manual) 0 % (0.0-1.8) 12/13/16 07:49 Metamyelocytes % 0 % 12/13/16 07:49 Myelocytes % 0 % 12/13/16 07:49 Promyelocytes % 0 % 12/13/16 07:49 Blast Cells % 0 % 12/13/16 07:49 Nucleated RBC % Not Reportable 12/13/16 07:49 Seg Neutrophils # 14.5 K/mm3 (1.8-7.7) H 12/16/16 Unknown Seg Neutrophils # Man 21.4 K/mm3 (1.8-7.7) H 12/13/16 07:49 Band Neutrophils # 0.2 K/mm3 12/13/16 07:49 Lymphocytes # (Manual) 1.7 K/mm3 (1.2-5.4) 12/13/16 07:49 Abs React Lymphs (Man) 0.0 K/mm3 12/13/16 07:49 Monocytes # (Manual) 0.7 K/mm3 (0.0-0.8) 12/13/16 07:49 Eosinophils # (Manual) 0.0 K/mm3 (0.0-0.4) 12/13/16 07:49 Basophils # (Manual) 0.0 K/mm3 (0.0-0.1) 12/13/16 07:49 Metamyelocytes # 0.0 K/mm3 12/13/16 07:49 Myelocytes # 0.0 K/mm3 12/13/16 07:49 Promyelocytes # 0.0 K/mm3 12/13/16 07:49 Blast Cells # 0.0 K/mm3 12/13/16 07:49 WBC Morphology Not Reportable 12/13/16 07:49 Hypersegmented Neuts Not Reportable 12/13/16 07:49 Hyposegmented Neuts Not Reportable 12/13/16 07:49 Hypogranular Neuts Not Reportable 12/13/16 07:49 Smudge Cells Not Reportable 12/13/16 07:49 Toxic Granulation Not Reportable 12/13/16 07:49 Toxic Vacuolation Not Reportable 12/13/16 07:49 Dohle Bodies Not Reportable 12/13/16 07:49 Pelger-Huet Anomaly Not Reportable 12/13/16 07:49 Mary Rods Not Reportable 12/13/16 07:49 Platelet Estimate Cons 12/13/16 07:49 Clumped Platelets Not Reportable 12/13/16 07:49 Plt Clumps, EDTA Not Reportable 12/13/16 07:49 Large Platelets Rare 12/13/16 07:49 Giant Platelets Not Reportable 12/13/16 07:49 Platelet Satelliting Not Reportable 12/13/16 07:49 Plt Morphology Comment Not Reportable 12/13/16 07:49 RBC Morphology Not Reportable 12/13/16 07:49 Dimorphic RBCs Not Reportable 12/13/16 07:49 Polychromasia Not Reportable 12/13/16 07:49 Hypochromasia 1+ 12/13/16 07:49 Poikilocytosis Not Reportable 12/13/16 07:49 Anisocytosis 1+ 12/13/16 07:49 Microcytosis Not Reportable 12/13/16 07:49 Macrocytosis Not Reportable 12/13/16 07:49 Spherocytes Not Reportable 12/13/16 07:49 Pappenheimer Bodies Not Reportable 12/13/16 07:49 Sickle Cells Not Reportable 12/13/16 07:49 Target Cells Few 12/13/16 07:49 Tear Drop Cells Not Reportable 12/13/16 07:49 Ovalocytes Not Reportable 12/13/16 07:49 Helmet Cells Not Reportable 12/13/16 07:49 Landers-Joslin Bodies Not Reportable 12/13/16 07:49 Flat Lick Rings Not Reportable 12/13/16 07:49 Jerri Cells Not Reportable 12/13/16 07:49 Bite Cells Not Reportable 12/13/16 07:49 Crenated Cell Not Reportable 12/13/16 07:49 Elliptocytes Not Reportable 12/13/16 07:49 Acanthocytes (Spur) Not Reportable 12/13/16 07:49 Rouleaux Not Reportable 12/13/16 07:49 Hemoglobin C Crystals Not Reportable 12/13/16 07:49 Schistocytes Not Reportable 12/13/16 07:49 Malaria parasites Not Reportable 12/13/16 07:49 Percent Retic 0.23 % (0.78-2.58) L 12/09/16 11:29 Michael Bodies Not Reportable 12/13/16 07:49 Haptoglobin 271 mg/dL (43-212) H 12/08/16 21:30 Hem Pathologist Commnt No 12/13/16 07:49 PT 15.3 Sec. (12.2-14.9) H 12/08/16 19:00 INR 1.22 (0.87-1.13) H 12/08/16 19:00 APTT 36.2 Sec. (24.2-36.6) 12/08/16 19:00 Fibrinogen 563 mg/dl (211-480) H 12/08/16 19:00 D-Dimer 5507.36 ng/mlDDU (0-234) H 12/08/16 19:00 Heparin Anti-Xa, Unfract Negative (Negative) 12/09/16 13:27 POC ABG pH 7.326 (7.35-7.45) L 12/09/16 12:02 POC ABG pCO2 37.7 (35-45) 12/09/16 12:02 POC ABG pO2 115 (80-105) H 12/09/16 12:02 POC ABG HCO3 19.7 12/09/16 12:02 POC ABG Total CO2 21 12/09/16 12:02 POC ABG O2 Sat 98 12/09/16 12:02 POC ABG Base Excess -6 12/09/16 12:02 FiO2 30 % 12/09/16 12:02 Sodium 140 mmol/L (137-145) 12/16/16 Unknown Potassium 3.6 mmol/L (3.6-5.0) 12/16/16 Unknown Chloride 102.3 mmol/L (98-107) 12/16/16 Unknown Carbon Dioxide 22 mmol/L (22-30) 12/16/16 Unknown Anion Gap 19 mmol/L 12/16/16 Unknown BUN 43 mg/dL (7-17) H 12/16/16 Unknown Creatinine 5.4 mg/dL (0.7-1.2) H 12/16/16 Unknown Estimated GFR 10 ml/min 12/16/16 Unknown BUN/Creatinine Ratio 7.96 % 12/16/16 Unknown Glucose 131 mg/dL (65-100) H 12/16/16 Unknown POC Glucose 127 (70-105) H 12/16/16 09:12 Lactic Acid 6.90 mmol/L (0.7-2.0) H* 12/07/16 07:30 Calcium 6.9 mg/dL (8.4-10.2) L 12/16/16 Unknown Phosphorus 3.30 mg/dL (2.5-4.5) 12/16/16 Unknown Magnesium 1.90 mg/dL (1.7-2.3) 12/11/16 04:30 Iron 15 ug/dL (37-170) L 12/09/16 13:27 TIBC 134 mcg/dL (250-450) L 12/09/16 13:27 Ferritin 360.1 ng/mL (13.0-400.0) 12/09/16 13:27 Total Bilirubin 1.40 mg/dL (0.1-1.2) H 12/07/16 21:35 Direct Bilirubin 0.9 mg/dL (0-0.2) H 12/07/16 21:35 Indirect Bilirubin 0.5 mg/dL 12/07/16 21:35 AST 94 units/L (5-40) H 12/07/16 21:35 ALT 142 units/L (7-56) H 12/07/16 21:35 Alkaline Phosphatase 249 units/L (35-129) H 12/07/16 21:35 Lactate Dehydrogenase 382 units/L (91-180) H 12/08/16 19:00 Total Creatine Kinase 123 units/L (30-135) 12/04/16 09:55 CK-MB (CK-2) 4.6 ng/mL (0.0-4.0) H 12/04/16 09:55 CK-MB (CK-2) Rel Index 3.7 (0-4) 12/04/16 09:55 Troponin T 0.140 ng/mL (0.00-0.029) H* D 12/04/16 09:55 C-Reactive Protein 39.40 mg/dL (0.00-1.30) H 12/07/16 06:00 Total Protein 4.6 g/dL (6.3-8.2) L D 12/07/16 21:35 Albumin 2.1 g/dL (3.9-5) L 12/07/16 21:35 Albumin/Globulin Ratio 0.8 % 12/07/16 21:35 Triglycerides 570 mg/dL (2-149) H 12/04/16 07:55 Cholesterol 221 mg/dL (50-199) H 12/04/16 07:55 LDL Cholesterol Direct TNR 12/04/16 07:55 HDL Cholesterol 37 mg/dL (40-59) L 12/04/16 07:55 Cholesterol/HDL Ratio 5.97 % 12/04/16 07:55 Vitamin B12 > 2000 pg/mL (211-911) H 12/09/16 13:27 Folate 8.10 ng/mL (7.3-26.0) 12/09/16 13:27 TSH 1.600 mlU/mL (0.270-4.200) 12/03/16 23:20 Urine Color Yellow (Yellow) 12/04/16 11:25 Urine Turbidity Slightly-cloudy (Clear) 12/04/16 11:25 Urine pH 5.0 (5.0-7.0) 12/04/16 11:25 Ur Specific [place] 1.018 (1.003-1.030) 12/04/16 11:25 Urine Protein 30 mg/dl mg/dL (Negative) 12/04/16 11:25 Urine Glucose (UA) >=500 mg/dL (Negative) 12/04/16 11:25 Urine Ketones Tr mg/dL (Negative) 12/04/16 11:25 Urine Blood Sm (Negative) 12/04/16 11:25 Urine Nitrite Neg (Negative) 12/04/16 11:25 Urine Bilirubin Neg (Negative) 12/04/16 11:25 Urine Urobilinogen < 2.0 mg/dL (<2.0) 12/04/16 11:25 Ur Leukocyte Esterase Neg (Negative) 12/04/16 11:25 Urine WBC (Auto) 4.0 /HPF (0.0-6.0) 12/04/16 11:25 Urine RBC (Auto) 2.0 /HPF (0.0-6.0) 12/04/16 11:25 U Epithel Cells (Auto) < 1.0 /HPF (0-13.0) 12/04/16 11:25 Urine Mucus Few /HPF 12/04/16 11:25 Urine Osmolality 419 Mosm/kg 12/04/16 11:25 Urine Creatinine 29.5 mg/dL (0.1-20.0) H 12/04/16 11:25 Protein/Creatinin Ratio 1.12 12/04/16 11:25 Urine Sodium 26 mEq/L 12/04/16 11:25 Urine Total Protein 33 mg/dL (5-11.8) H 12/04/16 11:25 Urine Opiates Screen Presumptive negative 12/04/16 11:25 Urine Methadone Screen Presumptive negative 12/04/16 11:25 Ur Barbiturates Screen Presumptive negative 12/04/16 11:25 Ur Phencyclidine Scrn Presumptive negative 12/04/16 11:25 Ur Amphetamines Screen Presumptive negative 12/04/16 11:25 U Benzodiazepines Scrn Presumptive negative 12/04/16 11:25 Urine Cocaine Screen Presumptive negative 12/04/16 11:25 U Marijuana (THC) Screen Presumptive positive 12/04/16 11:25 Drugs of Abuse Note Disclamer 12/04/16 11:25 Heparin-induced Plt Ab Weak positive (Negative) H 12/09/16 13:27 UF Heparin High Dose 0 % Release 12/09/16 13:27 ADRIENNE UFH Low Dose 0.1 0 % Release 12/09/16 13:27 ADRIENNE UFH Low Dose 0.5 0 % Release 12/09/16 13:27 Hep Bs Antigen Non-reactive (Negative) 12/09/16 13:27 Hep Bs Antibody, Quant <5 mIU/mL (>=10) L 12/09/16 13:27 Hep B Core Total Ab Nonreactive (Nonreactive) 12/09/16 13:27 Hepatitis C Antibody Non-reactive (NonReactive) 12/09/16 13:27 HIV 1&2 Antibody Rapid Non react (Non React) 12/09/16 13:27 HIV P24 Antigen Non react (Non React) 12/09/16 13:27 Schistocytes Smear None seen 12/09/16 11:29 Blood Type O POSITIVE 12/08/16 08:46 Antibody Screen TNR 12/08/16 08:46 ISAIAH Antibody Screen Negative 12/08/16 08:46 Crossmatch See Detail 12/08/16 08:46 Creatinine is trending up from 4.6-5.4
[2016-12-16] MEDS ORDERED: TOBRAMYCIN INHALATION (ADULT) IH SCH ×2 (20:00)
[2016-12-16] MEDS ORDERED: APRESOLINE IV ONE (21:21)
[2016-12-16] MEDS: LEVEMIR SUB-Q SCH (23:31)
--- NOTE | 2016-12-16 23:33 | Progress Note ---
Assessment and Plan Patient alert, awake.. No acute respiratory distress.No complaint of chest pain or shortness of breath..Patient resting on room air .O2 saturation 98%. Ventilation perfusion scan reported Low probability for pulmonary emboli. - Patient Problems (1) DKA (diabetic ketoacidoses) Current Visit: Yes Status: Acute Qualifiers: Diabetes mellitus type: type 1 Diabetes mellitus complication detail: without coma Diabetes mellitus manager terminal insulin use: D Qualified Code(s): E10.10 - Type 1 diabetes mellitus with ketoacidosis without coma Plan to address problem: Patient is on S/C insulin. Patient alert, awake. Clinicaly appears improving. Management as per primary care. (2) Metabolic encephalopathy Current Visit: Yes Status: Acute Plan to address problem: Patient alert, awake, following commands. Appears encephalopathy improving. Management as per primary care. (3) Pulmonary infiltrate in right lung on chest x-ray Current Visit: Yes Status: Acute Plan to address problem: Patient is on I/V flagyl. Starting on I/V Levaquine. Patient afebrile. Still has leukocytosis. Subjective Date of service: 12/16/16 Principal diagnosis: Sepsis; Pneumonia Interval history: Patient alert, awake, weak. No acute respiratory distress. No complaint of chest pain or shortness of breath. O2 saturation 98% on room air.Ventilation perfusion scan reported low probability for pulmonary emboli. Objective Vital Signs - 12hr 12/16/16 12/16/16 12/16/16 12:00 14:28 16:00 Temperature 98.1 F Pulse Rate Pulse Rate [ 75 74 Anterior Bilateral Throughout] Pulse Rate [ 104 H Right Radial] Respiratory 18 Rate Respiratory 18 18 Rate [Anterior Bilateral Throughout] Blood Pressure 181/101 [Right Arm] O2 Sat by Pulse 98 Oximetry 12/16/16 12/16/16 19:45 22:18 Temperature 98.5 F Pulse Rate 102 H Pulse Rate [ Anterior Bilateral Throughout] Pulse Rate [ 104 H Right Radial] Respiratory 16 Rate Respiratory Rate [Anterior Bilateral Throughout] Blood Pressure 184/104 [Right Arm] O2 Sat by Pulse Oximetry Constitutional: no acute distress, alert Eyes: non-icteric ENT: oropharynx moist Neck: supple, no lymphadenopathy Effort: mildly labored Ascultation: Bilateral: diminished breath sounds, rales (R>L lungs), rhonchi ( On right side.) Cardiovascular: regular rate and rhythm, other (SVT) Gastrointestinal: normoactive bowel sounds, soft, non-tender, non-distended Integumentary: normal Extremities: no cyanosis, no edema, pulses normal, no ischemia or petechiae Neurologic: normal mental status, non-focal exam, pupils equal and round, motor strength normal and Psychiatric: mood appropriate, affect normal CBC and BMP: 12/16/16 Unknown 12/16/16 Unknown ABG, PT/INR, D-dimer: ABG POC ABG pH 7.326 (7.35-7.45) L 12/09/16 12:02 POC ABG pCO2 37.7 (35-45) 12/09/16 12:02 POC ABG pO2 115 (80-105) H 12/09/16 12:02 POC ABG HCO3 19.7 12/09/16 12:02 POC ABG Total CO2 21 12/09/16 12:02 POC ABG O2 Sat 98 12/09/16 12:02 PT/INR, D-dimer PT 15.3 Sec. (12.2-14.9) H 12/08/16 19:00 INR 1.22 (0.87-1.13) H 12/08/16 19:00 D-Dimer 5507.36 ng/mlDDU (0-234) H 12/08/16 19:00 Abnormal lab findings: Abnormal Labs 12/04/16 12/04/16 12/04/16 01:19 01:36 02:21 WBC RBC Hgb Hct MCV MCHC RDW Plt Count Lymph % (Auto) [place] # Seg Neutrophils % Seg Neuts % (Manual) Lymphocytes % (Manual) Monocytes % (Manual) Nucleated RBC % Seg Neutrophils # Seg Neutrophils # Man Lymphocytes # (Manual) Monocytes # (Manual) Percent Retic Haptoglobin PT INR Fibrinogen D-Dimer POC ABG pH 6.759 L POC ABG pCO2 POC ABG pO2 437 H Sodium Potassium Chloride Carbon Dioxide BUN Creatinine Glucose POC Glucose > 500 H Lactic Acid Calcium Phosphorus 15.70 H Magnesium 4.30 H Iron TIBC Total Bilirubin Direct Bilirubin AST ALT Alkaline Phosphatase Lactate Dehydrogenase CK-MB (CK-2) Troponin T C-Reactive Protein Total Protein Albumin Triglycerides Cholesterol HDL Cholesterol Vitamin B12 Urine Creatinine Urine Total Protein Heparin-induced Plt Ab Hep Bs Antibody, Quant Crossmatch 12/04/16 12/04/16 12/04/16 03:55 04:00 05:11 WBC RBC Hgb Hct MCV MCHC RDW Plt Count Lymph % (Auto) [place] # Seg Neutrophils % Seg Neuts % (Manual) Lymphocytes % (Manual) Monocytes % (Manual) Nucleated RBC % Seg Neutrophils # Seg Neutrophils # Man Lymphocytes # (Manual) Monocytes # (Manual) Percent Retic Haptoglobin PT INR Fibrinogen D-Dimer POC ABG pH POC ABG pCO2 POC ABG pO2 Sodium Potassium Chloride 91.4 L Carbon Dioxide 8 L* BUN 55 H Creatinine 2.8 H Glucose 1610 H* POC Glucose > 500 H > 500 H Lactic Acid Calcium Phosphorus Magnesium Iron TIBC Total Bilirubin Direct Bilirubin AST ALT Alkaline Phosphatase Lactate Dehydrogenase CK-MB (CK-2) Troponin T C-Reactive Protein Total Protein Albumin Triglycerides Cholesterol HDL Cholesterol Vitamin B12 Urine Creatinine Urine Total Protein Heparin-induced Plt Ab Hep Bs Antibody, Quant Crossmatch 12/04/16 12/04/16 12/04/16 05:40 05:54 06:58 WBC RBC Hgb Hct MCV MCHC RDW Plt Count Lymph % (Auto) [place] # Seg Neutrophils % Seg Neuts % (Manual) Lymphocytes % (Manual) Monocytes % (Manual) Nucleated RBC % Seg Neutrophils # Seg Neutrophils # Man Lymphocytes # (Manual) Monocytes # (Manual) Percent Retic Haptoglobin PT INR Fibrinogen D-Dimer POC ABG pH 7.154 L POC ABG pCO2 27.5 L POC ABG pO2 111 H Sodium Potassium Chloride Carbon Dioxide BUN Creatinine Glucose POC Glucose > 500 H > 500 H Lactic Acid Calcium Phosphorus Magnesium Iron TIBC Total Bilirubin Direct Bilirubin AST ALT Alkaline Phosphatase Lactate Dehydrogenase CK-MB (CK-2) Troponin T C-Reactive Protein Total Protein Albumin Triglycerides Cholesterol HDL Cholesterol Vitamin B12 Urine Creatinine Urine Total Protein Heparin-induced Plt Ab Hep Bs Antibody, Quant Crossmatch 12/04/16 12/04/16 12/04/16 07:49 07:55 07:55 WBC RBC Hgb Hct MCV MCHC RDW Plt Count Lymph % (Auto) [place] # Seg Neutrophils % Seg Neuts % (Manual) Lymphocytes % (Manual) Monocytes % (Manual) Nucleated RBC % Seg Neutrophils # Seg Neutrophils # Man Lymphocytes # (Manual) Monocytes # (Manual) Percent Retic Haptoglobin PT INR Fibrinogen D-Dimer POC ABG pH POC ABG pCO2 POC ABG pO2 Sodium Potassium 3.3 L Chloride Carbon Dioxide 9 L* BUN 53 H Creatinine 2.9 H Glucose 1229 H* POC Glucose > 500 H Lactic Acid Calcium Phosphorus Magnesium Iron TIBC Total Bilirubin Direct Bilirubin AST ALT Alkaline Phosphatase Lactate Dehydrogenase CK-MB (CK-2) Troponin T 0.111 H* D C-Reactive Protein Total Protein Albumin Triglycerides 570 H Cholesterol 221 H HDL Cholesterol 37 L Vitamin B12 Urine Creatinine Urine Total Protein Heparin-induced Plt Ab Hep Bs Antibody, Quant Crossmatch 12/04/16 12/04/16 12/04/16 07:55 09:55 09:55 WBC RBC 2.90 L Hgb 8.5 L Hct 30.2 L D MCV 105 H D MCHC 28 L RDW 19.2 H Plt Count Lymph % (Auto) [place] # Seg Neutrophils % Seg Neuts % (Manual) Lymphocytes % (Manual) 11.0 L Monocytes % (Manual) Nucleated RBC % Seg Neutrophils # Seg Neutrophils # Man Lymphocytes # (Manual) 0.6 L Monocytes # (Manual) Percent Retic Haptoglobin PT INR Fibrinogen D-Dimer POC ABG pH POC ABG pCO2 POC ABG pO2 Sodium Potassium 3.1 L Chloride Carbon Dioxide 7 L* BUN 51 H Creatinine 3.2 H Glucose 969 H* POC Glucose Lactic Acid Calcium 10.4 H D Phosphorus Magnesium Iron TIBC Total Bilirubin Direct Bilirubin AST ALT Alkaline Phosphatase Lactate Dehydrogenase CK-MB (CK-2) 4.6 H Troponin T 0.140 H* D C-Reactive Protein Total Protein Albumin Triglycerides Cholesterol HDL Cholesterol Vitamin B12 Urine Creatinine Urine Total Protein Heparin-induced Plt Ab Hep Bs Antibody, Quant Crossmatch 12/04/16 12/04/16 12/04/16 09:55 10:37 11:25 WBC RBC Hgb Hct MCV MCHC RDW Plt Count Lymph % (Auto) [place] # Seg Neutrophils % Seg Neuts % (Manual) Lymphocytes % (Manual) Monocytes % (Manual) Nucleated RBC % Seg Neutrophils # Seg Neutrophils # Man Lymphocytes # (Manual) Monocytes # (Manual) Percent Retic Haptoglobin PT INR Fibrinogen D-Dimer POC ABG pH 7.215 L POC ABG pCO2 18.8 L POC ABG pO2 193 H Sodium Potassium Chloride Carbon Dioxide BUN Creatinine Glucose POC Glucose Lactic Acid Calcium Phosphorus Magnesium 3.70 H Iron TIBC Total Bilirubin Direct Bilirubin AST ALT Alkaline Phosphatase Lactate Dehydrogenase CK-MB (CK-2) Troponin T C-Reactive Protein Total Protein Albumin Triglycerides Cholesterol HDL Cholesterol Vitamin B12 Urine Creatinine 29.5 H Urine Total Protein 33 H Heparin-induced Plt Ab Hep Bs Antibody, Quant Crossmatch 12/04/16 12/04/16 12/04/16 12:00 12:48 13:00 WBC RBC Hgb Hct MCV MCHC RDW Plt Count Lymph % (Auto) [place] # Seg Neutrophils % Seg Neuts % (Manual) Lymphocytes % (Manual) Monocytes % (Manual) Nucleated RBC % Seg Neutrophils # Seg Neutrophils # Man Lymphocytes # (Manual) Monocytes # (Manual) Percent Retic Haptoglobin PT INR Fibrinogen D-Dimer POC ABG pH POC ABG pCO2 POC ABG pO2 Sodium 149 H 150 H Potassium 3.2 L 3.2 L Chloride 109.1 H Carbon Dioxide 8 L* 8 L* BUN 52 H 49 H Creatinine 3.4 H 3.1 H Glucose 723 H* 574 H* POC Glucose Lactic Acid 18.80 H* Calcium Phosphorus Magnesium Iron TIBC Total Bilirubin Direct Bilirubin AST ALT Alkaline Phosphatase Lactate Dehydrogenase CK-MB (CK-2) Troponin T C-Reactive Protein Total Protein Albumin Triglycerides Cholesterol HDL Cholesterol Vitamin B12 Urine Creatinine Urine Total Protein Heparin-induced Plt Ab Hep Bs Antibody, Quant Crossmatch 12/04/16 12/04/16 12/04/16 13:01 14:41 16:06 WBC RBC Hgb Hct MCV MCHC RDW Plt Count Lymph % (Auto) [place] # Seg Neutrophils % Seg Neuts % (Manual) Lymphocytes % (Manual) Monocytes % (Manual) Nucleated RBC % Seg Neutrophils # Seg Neutrophils # Man Lymphocytes # (Manual) Monocytes # (Manual) Percent Retic Haptoglobin PT INR Fibrinogen D-Dimer POC ABG pH POC ABG pCO2 POC ABG pO2 Sodium 151 H Potassium 3.2 L Chloride 108.1 H Carbon Dioxide 10 L BUN 49 H Creatinine 3.0 H Glucose 383 H POC Glucose 292 H Lactic Acid Calcium Phosphorus Magnesium Iron TIBC Total Bilirubin Direct Bilirubin AST ALT Alkaline Phosphatase Lactate Dehydrogenase CK-MB (CK-2) Troponin T C-Reactive Protein 3.50 H Total Protein Albumin Triglycerides Cholesterol HDL Cholesterol Vitamin B12 Urine Creatinine Urine Total Protein Heparin-induced Plt Ab Hep Bs Antibody, Quant Crossmatch 12/04/16 12/04/16 12/04/16 17:15 17:25 18:07 WBC RBC Hgb Hct MCV MCHC RDW Plt Count Lymph % (Auto) [place] # Seg Neutrophils % Seg Neuts % (Manual) Lymphocytes % (Manual) Monocytes % (Manual) Nucleated RBC % Seg Neutrophils # Seg Neutrophils # Man Lymphocytes # (Manual) Monocytes # (Manual) Percent Retic Haptoglobin PT INR Fibrinogen D-Dimer POC ABG pH 7.255 L POC ABG pCO2 16.9 L POC ABG pO2 169 H Sodium Potassium Chloride Carbon Dioxide BUN Creatinine Glucose POC Glucose 246 H Lactic Acid 18.50 H* Calcium Phosphorus Magnesium Iron TIBC Total Bilirubin Direct Bilirubin AST ALT Alkaline Phosphatase Lactate Dehydrogenase CK-MB (CK-2) Troponin T C-Reactive Protein Total Protein Albumin Triglycerides Cholesterol HDL Cholesterol Vitamin B12 Urine Creatinine Urine Total Protein Heparin-induced Plt Ab Hep Bs Antibody, Quant Crossmatch 12/04/16 12/04/16 12/04/16 19:34 20:31 21:15 WBC RBC Hgb Hct MCV MCHC RDW Plt Count Lymph % (Auto) [place] # Seg Neutrophils % Seg Neuts % (Manual) Lymphocytes % (Manual) Monocytes % (Manual) Nucleated RBC % Seg Neutrophils # Seg Neutrophils # Man Lymphocytes # (Manual) Monocytes # (Manual) Percent Retic Haptoglobin PT INR Fibrinogen D-Dimer POC ABG pH POC ABG pCO2 POC ABG pO2 Sodium Potassium Chloride Carbon Dioxide BUN Creatinine Glucose POC Glucose 189 H 126 H 139 H Lactic Acid Calcium Phosphorus Magnesium Iron TIBC Total Bilirubin Direct Bilirubin AST ALT Alkaline Phosphatase Lactate Dehydrogenase CK-MB (CK-2) Troponin T C-Reactive Protein Total Protein Albumin Triglycerides Cholesterol HDL Cholesterol Vitamin B12 Urine Creatinine Urine Total Protein Heparin-induced Plt Ab Hep Bs Antibody, Quant Crossmatch 12/04/16 12/04/16 12/04/16 21:25 22:37 23:35 WBC RBC Hgb Hct MCV MCHC RDW Plt Count Lymph % (Auto) [place] # Seg Neutrophils % Seg Neuts % (Manual) Lymphocytes % (Manual) Monocytes % (Manual) Nucleated RBC % Seg Neutrophils # Seg Neutrophils # Man Lymphocytes # (Manual) Monocytes # (Manual) Percent Retic Haptoglobin PT INR Fibrinogen D-Dimer POC ABG pH 7.294 L POC ABG pCO2 16.7 L POC ABG pO2 169 H Sodium Potassium Chloride Carbon Dioxide BUN Creatinine Glucose POC Glucose 131 H 106 H Lactic Acid Calcium Phosphorus Magnesium Iron TIBC Total Bilirubin Direct Bilirubin AST ALT Alkaline Phosphatase Lactate Dehydrogenase CK-MB (CK-2) Troponin T C-Reactive Protein Total Protein Albumin Triglycerides Cholesterol HDL Cholesterol Vitamin B12 Urine Creatinine Urine Total Protein Heparin-induced Plt Ab Hep Bs Antibody, Quant Crossmatch 07/01/17 07/01/17 07/01/17 02:40 02:50 02:50 WBC RBC Hgb Hct MCV MCHC RDW Plt Count Lymph % (Auto) [place] # Seg Neutrophils % Seg Neuts % (Manual) Lymphocytes % (Manual) Monocytes % (Manual) Nucleated RBC % Seg Neutrophils # Seg Neutrophils # Man Lymphocytes # (Manual) Monocytes # (Manual) Percent Retic Haptoglobin PT INR Fibrinogen D-Dimer POC ABG pH POC ABG pCO2 POC ABG pO2 Sodium 151 H Potassium Chloride 113.8 H Carbon Dioxide 12 L BUN 46 H Creatinine 3.2 H Glucose 165 H POC Glucose 109 H Lactic Acid 9.80 H* Calcium 8.3 L Phosphorus Magnesium Iron TIBC Total Bilirubin Direct Bilirubin AST ALT Alkaline Phosphatase Lactate Dehydrogenase CK-MB (CK-2) Troponin T C-Reactive Protein Total Protein Albumin Triglycerides Cholesterol HDL Cholesterol Vitamin B12 Urine Creatinine Urine Total Protein Heparin-induced Plt Ab Hep Bs Antibody, Quant Crossmatch 12/05/16 12/05/16 12/05/16 04:01 04:30 04:30 WBC 19.1 H RBC 2.91 L Hgb 8.0 L Hct 25.4 L MCV MCHC RDW 17.8 H Plt Count Lymph % (Auto) [place] # Seg Neutrophils % Seg Neuts % (Manual) 17.0 L Lymphocytes % (Manual) 7.0 L Monocytes % (Manual) Nucleated RBC % 3.0 H Seg Neutrophils # Seg Neutrophils # Man Lymphocytes # (Manual) Monocytes # (Manual) Percent Retic Haptoglobin PT INR Fibrinogen D-Dimer POC ABG pH POC ABG pCO2 POC ABG pO2 Sodium 152 H Potassium Chloride 113.5 H Carbon Dioxide 12 L BUN 47 H Creatinine 3.2 H Glucose 133 H POC Glucose 179 H Lactic Acid Calcium 8.3 L Phosphorus 1.00 L D Magnesium Iron TIBC Total Bilirubin Direct Bilirubin AST ALT Alkaline Phosphatase Lactate Dehydrogenase CK-MB (CK-2) Troponin T C-Reactive Protein Total Protein Albumin Triglycerides Cholesterol HDL Cholesterol Vitamin B12 Urine Creatinine Urine Total Protein Heparin-induced Plt Ab Hep Bs Antibody, Quant Crossmatch 12/05/16 12/05/16 12/05/16 05:32 08:01 08:48 WBC RBC Hgb Hct MCV MCHC RDW Plt Count Lymph % (Auto) [place] # Seg Neutrophils % Seg Neuts % (Manual) Lymphocytes % (Manual) Monocytes % (Manual) Nucleated RBC % Seg Neutrophils # Seg Neutrophils # Man Lymphocytes # (Manual) Monocytes # (Manual) Percent Retic Haptoglobin PT INR Fibrinogen D-Dimer POC ABG pH POC ABG pCO2 17.6 L POC ABG pO2 62 L Sodium Potassium Chloride Carbon Dioxide BUN Creatinine Glucose POC Glucose 126 H 130 H Lactic Acid Calcium Phosphorus Magnesium Iron TIBC Total Bilirubin Direct Bilirubin AST ALT Alkaline Phosphatase Lactate Dehydrogenase CK-MB (CK-2) Troponin T C-Reactive Protein Total Protein Albumin Triglycerides Cholesterol HDL Cholesterol Vitamin B12 Urine Creatinine Urine Total Protein Heparin-induced Plt Ab Hep Bs Antibody, Quant Crossmatch 12/05/16 12/05/16 12/05/16 08:54 12:01 15:15 WBC RBC Hgb Hct MCV MCHC RDW Plt Count Lymph % (Auto) [place] # Seg Neutrophils % Seg Neuts % (Manual) Lymphocytes % (Manual) Monocytes % (Manual) Nucleated RBC % Seg Neutrophils # Seg Neutrophils # Man Lymphocytes # (Manual) Monocytes # (Manual) Percent Retic Haptoglobin PT INR Fibrinogen D-Dimer POC ABG pH POC ABG pCO2 POC ABG pO2 Sodium Potassium Chloride Carbon Dioxide BUN Creatinine Glucose POC Glucose 157 H 117 H 166 H Lactic Acid Calcium Phosphorus Magnesium Iron TIBC Total Bilirubin Direct Bilirubin AST ALT Alkaline Phosphatase Lactate Dehydrogenase CK-MB (CK-2) Troponin T C-Reactive Protein Total Protein Albumin Triglycerides Cholesterol HDL Cholesterol Vitamin B12 Urine Creatinine Urine Total Protein Heparin-induced Plt Ab Hep Bs Antibody, Quant Crossmatch 12/05/16 12/05/16 12/05/16 16:10 16:55 17:08 WBC RBC Hgb Hct MCV MCHC RDW Plt Count Lymph % (Auto) [place] # Seg Neutrophils % Seg Neuts % (Manual) Lymphocytes % (Manual) Monocytes % (Manual) Nucleated RBC % Seg Neutrophils # Seg Neutrophils # Man Lymphocytes # (Manual) Monocytes # (Manual) Percent Retic Haptoglobin PT INR Fibrinogen D-Dimer POC ABG pH POC ABG pCO2 POC ABG pO2 Sodium Potassium Chloride Carbon Dioxide BUN Creatinine Glucose POC Glucose 178 H 169 H Lactic Acid Calcium Phosphorus 5.00 H D Magnesium Iron TIBC Total Bilirubin Direct Bilirubin AST ALT Alkaline Phosphatase Lactate Dehydrogenase CK-MB (CK-2) Troponin T C-Reactive Protein Total Protein Albumin Triglycerides Cholesterol HDL Cholesterol Vitamin B12 Urine Creatinine Urine Total Protein Heparin-induced Plt Ab Hep Bs Antibody, Quant Crossmatch 12/05/16 12/05/16 12/05/16 18:08 18:51 20:04 WBC RBC Hgb Hct MCV MCHC RDW Plt Count Lymph % (Auto) [place] # Seg Neutrophils % Seg Neuts % (Manual) Lymphocytes % (Manual) Monocytes % (Manual) Nucleated RBC % Seg Neutrophils # Seg Neutrophils # Man Lymphocytes # (Manual) Monocytes # (Manual) Percent Retic Haptoglobin PT INR Fibrinogen D-Dimer POC ABG pH POC ABG pCO2 POC ABG pO2 Sodium Potassium Chloride Carbon Dioxide BUN Creatinine Glucose POC Glucose 147 H 113 H 64 L Lactic Acid Calcium Phosphorus Magnesium Iron TIBC Total Bilirubin Direct Bilirubin AST ALT Alkaline Phosphatase Lactate Dehydrogenase CK-MB (CK-2) Troponin T C-Reactive Protein Total Protein Albumin Triglycerides Cholesterol HDL Cholesterol Vitamin B12 Urine Creatinine Urine Total Protein Heparin-induced Plt Ab Hep Bs Antibody, Quant Crossmatch 12/05/16 12/05/16 12/05/16 21:34 22:08 23:19 WBC RBC Hgb Hct MCV MCHC RDW Plt Count Lymph % (Auto) [place] # Seg Neutrophils % Seg Neuts % (Manual) Lymphocytes % (Manual) Monocytes % (Manual) Nucleated RBC % Seg Neutrophils # Seg Neutrophils # Man Lymphocytes # (Manual) Monocytes # (Manual) Percent Retic Haptoglobin PT INR Fibrinogen D-Dimer POC ABG pH 7.303 L POC ABG pCO2 18.3 L POC ABG pO2 73 L Sodium Potassium Chloride Carbon Dioxide BUN Creatinine Glucose POC Glucose 141 H 200 H Lactic Acid Calcium Phosphorus Magnesium Iron TIBC Total Bilirubin Direct Bilirubin AST ALT Alkaline Phosphatase Lactate Dehydrogenase CK-MB (CK-2) Troponin T C-Reactive Protein Total Protein Albumin Triglycerides Cholesterol HDL Cholesterol Vitamin B12 Urine Creatinine Urine Total Protein Heparin-induced Plt Ab Hep Bs Antibody, Quant Crossmatch 12/06/16 12/06/16 12/06/16 00:01 01:09 02:00 WBC RBC Hgb Hct MCV MCHC RDW Plt Count Lymph % (Auto) [place] # Seg Neutrophils % Seg Neuts % (Manual) Lymphocytes % (Manual) Monocytes % (Manual) Nucleated RBC % Seg Neutrophils # Seg Neutrophils # Man Lymphocytes # (Manual) Monocytes # (Manual) Percent Retic Haptoglobin PT INR Fibrinogen D-Dimer POC ABG pH POC ABG pCO2 POC ABG pO2 Sodium Potassium Chloride Carbon Dioxide BUN Creatinine Glucose POC Glucose 211 H 116 H 57 L Lactic Acid Calcium Phosphorus Magnesium Iron TIBC Total Bilirubin Direct Bilirubin AST ALT Alkaline Phosphatase Lactate Dehydrogenase CK-MB (CK-2) Troponin T C-Reactive Protein Total Protein Albumin Triglycerides Cholesterol HDL Cholesterol Vitamin B12 Urine Creatinine Urine Total Protein Heparin-induced Plt Ab Hep Bs Antibody, Quant Crossmatch 12/06/16 12/06/16 12/06/16 04:14 04:50 04:50 WBC RBC 2.68 L Hgb 7.6 L Hct 23.2 L MCV MCHC RDW 18.9 H Plt Count Lymph % (Auto) [place] # Seg Neutrophils % Seg Neuts % (Manual) 32.0 L Lymphocytes % (Manual) Monocytes % (Manual) Nucleated RBC % 3.0 H Seg Neutrophils # Seg Neutrophils # Man Lymphocytes # (Manual) 0.9 L Monocytes # (Manual) Percent Retic Haptoglobin PT INR Fibrinogen D-Dimer POC ABG pH POC ABG pCO2 POC ABG pO2 Sodium Potassium 5.8 H D Chloride 111.5 H Carbon Dioxide 11 L BUN 52 H Creatinine 3.8 H Glucose 186 H POC Glucose 133 H Lactic Acid Calcium 6.5 L D Phosphorus 5.80 H Magnesium Iron TIBC Total Bilirubin Direct Bilirubin AST ALT Alkaline Phosphatase Lactate Dehydrogenase CK-MB (CK-2) Troponin T C-Reactive Protein Total Protein Albumin Triglycerides Cholesterol HDL Cholesterol Vitamin B12 Urine Creatinine Urine Total Protein Heparin-induced Plt Ab Hep Bs Antibody, Quant Crossmatch 12/06/16 12/06/16 12/06/16 04:50 05:04 05:07 WBC RBC Hgb Hct MCV MCHC RDW Plt Count Lymph % (Auto) [place] # Seg Neutrophils % Seg Neuts % (Manual) Lymphocytes % (Manual) Monocytes % (Manual) Nucleated RBC % Seg Neutrophils # Seg Neutrophils # Man Lymphocytes # (Manual) Monocytes # (Manual) Percent Retic Haptoglobin PT INR Fibrinogen D-Dimer POC ABG pH POC ABG pCO2 13.0 L POC ABG pO2 111 H Sodium Potassium Chloride Carbon Dioxide BUN Creatinine Glucose POC Glucose 127 H Lactic Acid 6.50 H* Calcium Phosphorus Magnesium Iron TIBC Total Bilirubin Direct Bilirubin AST ALT Alkaline Phosphatase Lactate Dehydrogenase CK-MB (CK-2) Troponin T C-Reactive Protein Total Protein Albumin Triglycerides Cholesterol HDL Cholesterol Vitamin B12 Urine Creatinine Urine Total Protein Heparin-induced Plt Ab Hep Bs Antibody, Quant Crossmatch 12/06/16 12/06/16 12/06/16 06:10 06:54 07:46 WBC RBC Hgb Hct MCV MCHC RDW Plt Count Lymph % (Auto) [place] # Seg Neutrophils % Seg Neuts % (Manual) Lymphocytes % (Manual) Monocytes % (Manual) Nucleated RBC % Seg Neutrophils # Seg Neutrophils # Man Lymphocytes # (Manual) Monocytes # (Manual) Percent Retic Haptoglobin PT INR Fibrinogen D-Dimer POC ABG pH POC ABG pCO2 POC ABG pO2 Sodium Potassium Chloride Carbon Dioxide BUN Creatinine Glucose POC Glucose 219 H 237 H 158 H Lactic Acid Calcium Phosphorus Magnesium Iron TIBC Total Bilirubin Direct Bilirubin AST ALT Alkaline Phosphatase Lactate Dehydrogenase CK-MB (CK-2) Troponin T C-Reactive Protein Total Protein Albumin Triglycerides Cholesterol HDL Cholesterol Vitamin B12 Urine Creatinine Urine Total Protein Heparin-induced Plt Ab Hep Bs Antibody, Quant Crossmatch 12/06/16 12/06/16 12/06/16 08:55 10:27 11:58 WBC RBC Hgb Hct MCV MCHC RDW Plt Count Lymph % (Auto) [place] # Seg Neutrophils % Seg Neuts % (Manual) Lymphocytes % (Manual) Monocytes % (Manual) Nucleated RBC % Seg Neutrophils # Seg Neutrophils # Man Lymphocytes # (Manual) Monocytes # (Manual) Percent Retic Haptoglobin PT INR Fibrinogen D-Dimer POC ABG pH POC ABG pCO2 POC ABG pO2 Sodium Potassium Chloride Carbon Dioxide BUN Creatinine Glucose POC Glucose 40 L 128 H 144 H Lactic Acid Calcium Phosphorus Magnesium Iron TIBC Total Bilirubin Direct Bilirubin AST ALT Alkaline Phosphatase Lactate Dehydrogenase CK-MB (CK-2) Troponin T C-Reactive Protein Total Protein Albumin Triglycerides Cholesterol HDL Cholesterol Vitamin B12 Urine Creatinine Urine Total Protein Heparin-induced Plt Ab Hep Bs Antibody, Quant Crossmatch 12/06/16 12/06/16 12/06/16 18:14 19:00 19:06 WBC RBC Hgb Hct MCV MCHC RDW Plt Count Lymph % (Auto) [place] # Seg Neutrophils % Seg Neuts % (Manual) Lymphocytes % (Manual) Monocytes % (Manual) Nucleated RBC % Seg Neutrophils # Seg Neutrophils # Man Lymphocytes # (Manual) Monocytes # (Manual) Percent Retic Haptoglobin PT INR Fibrinogen D-Dimer POC ABG pH POC ABG pCO2 POC ABG pO2 Sodium 149 H Potassium 5.6 H Chloride 115.9 H Carbon Dioxide 13 L BUN 56 H Creatinine 4.3 H Glucose 124 H POC Glucose 55 L 148 H Lactic Acid Calcium 6.0 L Phosphorus Magnesium Iron TIBC Total Bilirubin Direct Bilirubin AST ALT Alkaline Phosphatase Lactate Dehydrogenase CK-MB (CK-2) Troponin T C-Reactive Protein Total Protein Albumin Triglycerides Cholesterol HDL Cholesterol Vitamin B12 Urine Creatinine Urine Total Protein Heparin-induced Plt Ab Hep Bs Antibody, Quant Crossmatch 12/06/16 12/06/16 12/07/16 21:24 21:51 02:32 WBC RBC Hgb Hct MCV MCHC RDW Plt Count Lymph % (Auto) [place] # Seg Neutrophils % Seg Neuts % (Manual) Lymphocytes % (Manual) Monocytes % (Manual) Nucleated RBC % Seg Neutrophils # Seg Neutrophils # Man Lymphocytes # (Manual) Monocytes # (Manual) Percent Retic Haptoglobin PT INR Fibrinogen D-Dimer POC ABG pH POC ABG pCO2 17.0 L POC ABG pO2 142 H Sodium Potassium Chloride Carbon Dioxide BUN Creatinine Glucose POC Glucose 107 H 175 H Lactic Acid Calcium Phosphorus Magnesium Iron TIBC Total Bilirubin Direct Bilirubin AST ALT Alkaline Phosphatase Lactate Dehydrogenase CK-MB (CK-2) Troponin T C-Reactive Protein Total Protein Albumin Triglycerides Cholesterol HDL Cholesterol Vitamin B12 Urine Creatinine Urine Total Protein Heparin-induced Plt Ab Hep Bs Antibody, Quant Crossmatch 12/07/16 12/07/16 12/07/16 05:01 05:25 06:00 WBC RBC 2.52 L Hgb 7.1 L Hct 22.1 L MCV MCHC RDW 19.3 H Plt Count 90 L Lymph % (Auto) [place] # Seg Neutrophils % Seg Neuts % (Manual) 75.0 H Lymphocytes % (Manual) 11.0 L Monocytes % (Manual) Nucleated RBC % Seg Neutrophils # Seg Neutrophils # Man Lymphocytes # (Manual) 0.7 L Monocytes # (Manual) Percent Retic Haptoglobin PT INR Fibrinogen D-Dimer POC ABG pH 7.300 L POC ABG pCO2 17.1 L POC ABG pO2 140 H Sodium Potassium Chloride Carbon Dioxide BUN Creatinine Glucose POC Glucose 279 H Lactic Acid Calcium Phosphorus Magnesium Iron TIBC Total Bilirubin Direct Bilirubin AST ALT Alkaline Phosphatase Lactate Dehydrogenase CK-MB (CK-2) Troponin T C-Reactive Protein Total Protein Albumin Triglycerides Cholesterol HDL Cholesterol Vitamin B12 Urine Creatinine Urine Total Protein Heparin-induced Plt Ab Hep Bs Antibody, Quant Crossmatch 12/07/16 12/07/16 12/07/16 06:00 06:00 07:30 WBC RBC Hgb Hct MCV MCHC RDW Plt Count Lymph % (Auto) [place] # Seg Neutrophils % Seg Neuts % (Manual) Lymphocytes % (Manual) Monocytes % (Manual) Nucleated RBC % Seg Neutrophils # Seg Neutrophils # Man Lymphocytes # (Manual) Monocytes # (Manual) Percent Retic Haptoglobin PT INR Fibrinogen D-Dimer POC ABG pH POC ABG pCO2 POC ABG pO2 Sodium Potassium Chloride Carbon Dioxide BUN Creatinine Glucose POC Glucose Lactic Acid 6.90 H* Calcium Phosphorus 6.80 H Magnesium Iron TIBC Total Bilirubin Direct Bilirubin AST ALT Alkaline Phosphatase Lactate Dehydrogenase CK-MB (CK-2) Troponin T C-Reactive Protein 39.40 H Total Protein Albumin Triglycerides Cholesterol HDL Cholesterol Vitamin B12 Urine Creatinine Urine Total Protein Heparin-induced Plt Ab Hep Bs Antibody, Quant Crossmatch 12/07/16 12/07/16 12/07/16 08:40 10:53 14:31 WBC RBC Hgb Hct MCV MCHC RDW Plt Count Lymph % (Auto) [place] # Seg Neutrophils % Seg Neuts % (Manual) Lymphocytes % (Manual) Monocytes % (Manual) Nucleated RBC % Seg Neutrophils # Seg Neutrophils # Man Lymphocytes # (Manual) Monocytes # (Manual) Percent Retic Haptoglobin PT INR Fibrinogen D-Dimer POC ABG pH POC ABG pCO2 POC ABG pO2 Sodium Potassium 7.0 H* D Chloride 112.4 H Carbon Dioxide 8 L* BUN 61 H Creatinine 5.1 H Glucose 213 H POC Glucose 353 H 52 L Lactic Acid Calcium 5.8 L* Phosphorus Magnesium Iron TIBC Total Bilirubin Direct Bilirubin AST ALT Alkaline Phosphatase Lactate Dehydrogenase CK-MB (CK-2) Troponin T C-Reactive Protein Total Protein Albumin Triglycerides Cholesterol HDL Cholesterol Vitamin B12 Urine Creatinine Urine Total Protein Heparin-induced Plt Ab Hep Bs Antibody, Quant Crossmatch 12/07/16 12/07/16 12/07/16 14:45 15:33 16:22 WBC RBC Hgb Hct MCV MCHC RDW Plt Count Lymph % (Auto) [place] # Seg Neutrophils % Seg Neuts % (Manual) Lymphocytes % (Manual) Monocytes % (Manual) Nucleated RBC % Seg Neutrophils # Seg Neutrophils # Man Lymphocytes # (Manual) Monocytes # (Manual) Percent Retic Haptoglobin PT 17.5 H INR 1.44 H Fibrinogen D-Dimer POC ABG pH POC ABG pCO2 POC ABG pO2 Sodium Potassium Chloride Carbon Dioxide BUN Creatinine Glucose POC Glucose < 40 L 118 H Lactic Acid Calcium Phosphorus Magnesium Iron TIBC Total Bilirubin Direct Bilirubin AST ALT Alkaline Phosphatase Lactate Dehydrogenase CK-MB (CK-2) Troponin T C-Reactive Protein Total Protein Albumin Triglycerides Cholesterol HDL Cholesterol Vitamin B12 Urine Creatinine Urine Total Protein Heparin-induced Plt Ab Hep Bs Antibody, Quant Crossmatch 12/07/16 12/07/16 12/07/16 21:35 21:35 21:58 WBC RBC Hgb Hct MCV MCHC RDW Plt Count Lymph % (Auto) [place] # Seg Neutrophils % Seg Neuts % (Manual) Lymphocytes % (Manual) Monocytes % (Manual) Nucleated RBC % Seg Neutrophils # Seg Neutrophils # Man Lymphocytes # (Manual) Monocytes # (Manual) Percent Retic Haptoglobin PT INR Fibrinogen D-Dimer POC ABG pH POC ABG pCO2 POC ABG pO2 Sodium 150 H Potassium 3.3 L D Chloride 111.4 H Carbon Dioxide 21 L D BUN 22 H Creatinine 2.6 H Glucose 23 L* POC Glucose < 40 L Lactic Acid Calcium Phosphorus Magnesium Iron TIBC Total Bilirubin 1.40 H Direct Bilirubin 0.9 H AST 94 H ALT 142 H Alkaline Phosphatase 249 H Lactate Dehydrogenase CK-MB (CK-2) Troponin T C-Reactive Protein Total Protein 4.6 L D Albumin 2.1 L Triglycerides Cholesterol HDL Cholesterol Vitamin B12 Urine Creatinine Urine Total Protein Heparin-induced Plt Ab Hep Bs Antibody, Quant Crossmatch 12/07/16 12/08/16 12/08/16 23:31 04:43 04:50 WBC RBC 2.35 L Hgb 6.6 L Hct 20.1 L MCV MCHC RDW 17.8 H Plt Count 48 L Lymph % (Auto) [place] # Seg Neutrophils % Seg Neuts % (Manual) Lymphocytes % (Manual) Monocytes % (Manual) Nucleated RBC % Seg Neutrophils # Seg Neutrophils # Man Lymphocytes # (Manual) 0.9 L Monocytes # (Manual) Percent Retic Haptoglobin PT INR Fibrinogen D-Dimer POC ABG pH 7.586 H POC ABG pCO2 17.7 L POC ABG pO2 150 H Sodium Potassium Chloride Carbon Dioxide BUN Creatinine Glucose POC Glucose 42 L Lactic Acid Calcium Phosphorus Magnesium Iron TIBC Total Bilirubin Direct Bilirubin AST ALT Alkaline Phosphatase Lactate Dehydrogenase CK-MB (CK-2) Troponin T C-Reactive Protein Total Protein Albumin Triglycerides Cholesterol HDL Cholesterol Vitamin B12 Urine Creatinine Urine Total Protein Heparin-induced Plt Ab Hep Bs Antibody, Quant Crossmatch 12/08/16 12/08/16 12/08/16 04:50 04:59 06:54 WBC RBC Hgb Hct MCV MCHC RDW Plt Count Lymph % (Auto) [place] # Seg Neutrophils % Seg Neuts % (Manual) Lymphocytes % (Manual) Monocytes % (Manual) Nucleated RBC % Seg Neutrophils # Seg Neutrophils # Man Lymphocytes # (Manual) Monocytes # (Manual) Percent Retic Haptoglobin PT INR Fibrinogen D-Dimer POC ABG pH POC ABG pCO2 POC ABG pO2 Sodium 149 H Potassium 3.2 L Chloride 111.8 H Carbon Dioxide 17 L BUN 26 H Creatinine 3.4 H Glucose 163 H POC Glucose 204 H 203 H Lactic Acid Calcium 7.7 L Phosphorus 2.40 L D Magnesium Iron TIBC Total Bilirubin Direct Bilirubin AST ALT Alkaline Phosphatase Lactate Dehydrogenase CK-MB (CK-2) Troponin T C-Reactive Protein Total Protein Albumin Triglycerides Cholesterol HDL Cholesterol Vitamin B12 Urine Creatinine Urine Total Protein Heparin-induced Plt Ab Hep Bs Antibody, Quant Crossmatch 12/08/16 12/08/16 12/08/16 08:04 08:46 08:46 WBC RBC Hgb Hct MCV MCHC RDW Plt Count Lymph % (Auto) [place] # Seg Neutrophils % Seg Neuts % (Manual) Lymphocytes % (Manual) Monocytes % (Manual) Nucleated RBC % Seg Neutrophils # Seg Neutrophils # Man Lymphocytes # (Manual) Monocytes # (Manual) Percent Retic Haptoglobin PT INR Fibrinogen D-Dimer POC ABG pH POC ABG pCO2 POC ABG pO2 Sodium 147 H Potassium 2.9 L* Chloride 110.6 H Carbon Dioxide 17 L BUN 28 H Creatinine 3.6 H Glucose 127 H POC Glucose 205 H Lactic Acid Calcium 7.3 L Phosphorus Magnesium Iron TIBC Total Bilirubin Direct Bilirubin AST ALT Alkaline Phosphatase Lactate Dehydrogenase CK-MB (CK-2) Troponin T C-Reactive Protein Total Protein Albumin Triglycerides Cholesterol HDL Cholesterol Vitamin B12 Urine Creatinine Urine Total Protein Heparin-induced Plt Ab Hep Bs Antibody, Quant Crossmatch See Detail 12/08/16 12/08/16 12/08/16 12:36 19:00 19:00 WBC RBC Hgb Hct MCV MCHC RDW Plt Count Lymph % (Auto) [place] # Seg Neutrophils % Seg Neuts % (Manual) Lymphocytes % (Manual) Monocytes % (Manual) Nucleated RBC % Seg Neutrophils # Seg Neutrophils # Man Lymphocytes # (Manual) Monocytes # (Manual) Percent Retic Haptoglobin PT 15.3 H INR 1.22 H Fibrinogen 563 H D-Dimer 5507.36 H POC ABG pH POC ABG pCO2 POC ABG pO2 Sodium Potassium Chloride Carbon Dioxide 21 L BUN Creatinine 1.7 H D Glucose 155 H POC Glucose 181 H Lactic Acid Calcium Phosphorus Magnesium Iron TIBC Total Bilirubin Direct Bilirubin AST ALT Alkaline Phosphatase Lactate Dehydrogenase CK-MB (CK-2) Troponin T C-Reactive Protein Total Protein Albumin Triglycerides Cholesterol HDL Cholesterol Vitamin B12 Urine Creatinine Urine Total Protein Heparin-induced Plt Ab Hep Bs Antibody, Quant Crossmatch 12/08/16 12/08/16 12/08/16 19:00 19:00 21:30 WBC RBC 2.76 L Hgb 7.8 L Hct 23.7 L MCV MCHC RDW 17.0 H Plt Count 38 L Lymph % (Auto) [place] # Seg Neutrophils % Seg Neuts % (Manual) Lymphocytes % (Manual) Monocytes % (Manual) Nucleated RBC % Seg Neutrophils # Seg Neutrophils # Man Lymphocytes # (Manual) Monocytes # (Manual) Percent Retic Haptoglobin 271 H PT INR Fibrinogen D-Dimer POC ABG pH POC ABG pCO2 POC ABG pO2 Sodium Potassium Chloride Carbon Dioxide BUN Creatinine Glucose POC Glucose Lactic Acid Calcium Phosphorus Magnesium Iron TIBC Total Bilirubin Direct Bilirubin AST ALT Alkaline Phosphatase Lactate Dehydrogenase 382 H CK-MB (CK-2) Troponin T C-Reactive Protein Total Protein Albumin Triglycerides Cholesterol HDL Cholesterol Vitamin B12 Urine Creatinine Urine Total Protein Heparin-induced Plt Ab Hep Bs Antibody, Quant Crossmatch 12/08/16 12/08/16 12/09/16 23:32 23:44 05:22 WBC RBC Hgb Hct MCV MCHC RDW Plt Count Lymph % (Auto) [place] # Seg Neutrophils % Seg Neuts % (Manual) Lymphocytes % (Manual) Monocytes % (Manual) Nucleated RBC % Seg Neutrophils # Seg Neutrophils # Man Lymphocytes # (Manual) Monocytes # (Manual) Percent Retic Haptoglobin PT INR Fibrinogen D-Dimer POC ABG pH 7.498 H POC ABG pCO2 25.2 L POC ABG pO2 137 H Sodium Potassium Chloride Carbon Dioxide BUN Creatinine Glucose POC Glucose 311 H 113 H Lactic Acid Calcium Phosphorus Magnesium Iron TIBC Total Bilirubin Direct Bilirubin AST ALT Alkaline Phosphatase Lactate Dehydrogenase CK-MB (CK-2) Troponin T C-Reactive Protein Total Protein Albumin Triglycerides Cholesterol HDL Cholesterol Vitamin B12 Urine Creatinine Urine Total Protein Heparin-induced Plt Ab Hep Bs Antibody, Quant Crossmatch 12/09/16 12/09/16 12/09/16 06:00 11:29 11:59 WBC RBC Hgb Hct MCV MCHC RDW Plt Count Lymph % (Auto) [place] # Seg Neutrophils % Seg Neuts % (Manual) Lymphocytes % (Manual) Monocytes % (Manual) Nucleated RBC % Seg Neutrophils # Seg Neutrophils # Man Lymphocytes # (Manual) Monocytes # (Manual) Percent Retic 0.23 L Haptoglobin PT INR Fibrinogen D-Dimer POC ABG pH POC ABG pCO2 POC ABG pO2 Sodium Potassium Chloride 110.2 H Carbon Dioxide 18 L BUN 19 H Creatinine 2.5 H Glucose 105 H POC Glucose 254 H Lactic Acid Calcium Phosphorus 2.00 L Magnesium Iron TIBC Total Bilirubin Direct Bilirubin AST ALT Alkaline Phosphatase Lactate Dehydrogenase CK-MB (CK-2) Troponin T C-Reactive Protein Total Protein Albumin Triglycerides Cholesterol HDL Cholesterol Vitamin B12 Urine Creatinine Urine Total Protein Heparin-induced Plt Ab Hep Bs Antibody, Quant Crossmatch 12/09/16 12/09/16 12/09/16 12:02 13:27 13:27 WBC RBC Hgb Hct MCV MCHC RDW Plt Count Lymph % (Auto) [place] # Seg Neutrophils % Seg Neuts % (Manual) Lymphocytes % (Manual) Monocytes % (Manual) Nucleated RBC % Seg Neutrophils # Seg Neutrophils # Man Lymphocytes # (Manual) Monocytes # (Manual) Percent Retic Haptoglobin PT INR Fibrinogen D-Dimer POC ABG pH 7.326 L POC ABG pCO2 POC ABG pO2 115 H Sodium Potassium Chloride Carbon Dioxide BUN Creatinine Glucose POC Glucose Lactic Acid Calcium Phosphorus Magnesium Iron 15 L TIBC 134 L Total Bilirubin Direct Bilirubin AST ALT Alkaline Phosphatase Lactate Dehydrogenase CK-MB (CK-2) Troponin T C-Reactive Protein Total Protein Albumin Triglycerides Cholesterol HDL Cholesterol Vitamin B12 > 2000 H Urine Creatinine Urine Total Protein Heparin-induced Plt Ab Hep Bs Antibody, Quant Crossmatch 12/09/16 12/09/16 12/09/16 13:27 13:27 16:28 WBC RBC Hgb Hct MCV MCHC RDW Plt Count Lymph % (Auto) [place] # Seg Neutrophils % Seg Neuts % (Manual) Lymphocytes % (Manual) Monocytes % (Manual) Nucleated RBC % Seg Neutrophils # Seg Neutrophils # Man Lymphocytes # (Manual) Monocytes # (Manual) Percent Retic Haptoglobin PT INR Fibrinogen D-Dimer POC ABG pH POC ABG pCO2 POC ABG pO2 Sodium Potassium Chloride Carbon Dioxide BUN Creatinine Glucose POC Glucose 199 H Lactic Acid Calcium Phosphorus Magnesium Iron TIBC Total Bilirubin Direct Bilirubin AST ALT Alkaline Phosphatase Lactate Dehydrogenase CK-MB (CK-2) Troponin T C-Reactive Protein Total Protein Albumin Triglycerides Cholesterol HDL Cholesterol Vitamin B12 Urine Creatinine Urine Total Protein Heparin-induced Plt Ab Weak positive H Hep Bs Antibody, Quant <5 L Crossmatch 12/09/16 12/09/16 12/10/16 23:27 Unknown 05:36 WBC 11.3 H RBC 2.92 L Hgb 8.4 L Hct 25.3 L MCV MCHC RDW 16.9 H Plt Count 31 L Lymph % (Auto) [place] # Seg Neutrophils % Seg Neuts % (Manual) Lymphocytes % (Manual) Monocytes % (Manual) Nucleated RBC % Seg Neutrophils # Seg Neutrophils # Man Lymphocytes # (Manual) Monocytes # (Manual) Percent Retic Haptoglobin PT INR Fibrinogen D-Dimer POC ABG pH POC ABG pCO2 POC ABG pO2 Sodium Potassium Chloride Carbon Dioxide BUN Creatinine Glucose POC Glucose 247 H 248 H Lactic Acid Calcium Phosphorus Magnesium Iron TIBC Total Bilirubin Direct Bilirubin AST ALT Alkaline Phosphatase Lactate Dehydrogenase CK-MB (CK-2) Troponin T C-Reactive Protein Total Protein Albumin Triglycerides Cholesterol HDL Cholesterol Vitamin B12 Urine Creatinine Urine Total Protein Heparin-induced Plt Ab Hep Bs Antibody, Quant Crossmatch 12/10/16 12/10/16 12/10/16 09:55 09:55 11:49 WBC 21.2 H RBC 3.37 L Hgb 9.6 L Hct 29.5 L MCV MCHC RDW 16.3 H Plt Count 102 L D Lymph % (Auto) [place] # Seg Neutrophils % Seg Neuts % (Manual) Lymphocytes % (Manual) Monocytes % (Manual) Nucleated RBC % Seg Neutrophils # Seg Neutrophils # Man Lymphocytes # (Manual) Monocytes # (Manual) Percent Retic Haptoglobin PT INR Fibrinogen D-Dimer POC ABG pH POC ABG pCO2 POC ABG pO2 Sodium Potassium Chloride 107.4 H Carbon Dioxide 21 L BUN 37 H Creatinine 4.2 H D Glucose 174 H POC Glucose 265 H Lactic Acid Calcium Phosphorus Magnesium Iron TIBC Total Bilirubin Direct Bilirubin AST ALT Alkaline Phosphatase Lactate Dehydrogenase CK-MB (CK-2) Troponin T C-Reactive Protein Total Protein Albumin Triglycerides Cholesterol HDL Cholesterol Vitamin B12 Urine Creatinine Urine Total Protein Heparin-induced Plt Ab Hep Bs Antibody, Quant Crossmatch 12/10/16 12/10/16 12/11/16 17:56 23:44 04:30 WBC 23.5 H RBC 3.46 L Hgb 9.7 L Hct 30.1 L MCV MCHC RDW 16.4 H Plt Count 115 L Lymph % (Auto) [place] # Seg Neutrophils % Seg Neuts % (Manual) 84.0 H Lymphocytes % (Manual) 5.0 L Monocytes % (Manual) 10.0 H Nucleated RBC % 1.0 H Seg Neutrophils # Seg Neutrophils # Man 19.7 H Lymphocytes # (Manual) Monocytes # (Manual) 2.4 H Percent Retic Haptoglobin PT INR Fibrinogen D-Dimer POC ABG pH POC ABG pCO2 POC ABG pO2 Sodium Potassium Chloride Carbon Dioxide BUN Creatinine Glucose POC Glucose 118 H 378 H Lactic Acid Calcium Phosphorus Magnesium Iron TIBC Total Bilirubin Direct Bilirubin AST ALT Alkaline Phosphatase Lactate Dehydrogenase CK-MB (CK-2) Troponin T C-Reactive Protein Total Protein Albumin Triglycerides Cholesterol HDL Cholesterol Vitamin B12 Urine Creatinine Urine Total Protein Heparin-induced Plt Ab Hep Bs Antibody, Quant Crossmatch 12/11/16 12/11/16 12/11/16 04:30 05:33 12:48 WBC RBC Hgb Hct MCV MCHC RDW Plt Count Lymph % (Auto) [place] # Seg Neutrophils % Seg Neuts % (Manual) Lymphocytes % (Manual) Monocytes % (Manual) Nucleated RBC % Seg Neutrophils # Seg Neutrophils # Man Lymphocytes # (Manual) Monocytes # (Manual) Percent Retic Haptoglobin PT INR Fibrinogen D-Dimer POC ABG pH POC ABG pCO2 POC ABG pO2 Sodium Potassium Chloride Carbon Dioxide 21 L BUN 50 H Creatinine 4.8 H Glucose 303 H POC Glucose 335 H 325 H Lactic Acid Calcium 8.2 L Phosphorus Magnesium Iron TIBC Total Bilirubin Direct Bilirubin AST ALT Alkaline Phosphatase Lactate Dehydrogenase CK-MB (CK-2) Troponin T C-Reactive Protein Total Protein Albumin Triglycerides Cholesterol HDL Cholesterol Vitamin B12 Urine Creatinine Urine Total Protein Heparin-induced Plt Ab Hep Bs Antibody, Quant Crossmatch 12/11/16 12/11/16 12/12/16 17:49 21:16 00:49 WBC RBC Hgb Hct MCV MCHC RDW Plt Count Lymph % (Auto) [place] # Seg Neutrophils % Seg Neuts % (Manual) Lymphocytes % (Manual) Monocytes % (Manual) Nucleated RBC % Seg Neutrophils # Seg Neutrophils # Man Lymphocytes # (Manual) Monocytes # (Manual) Percent Retic Haptoglobin PT INR Fibrinogen D-Dimer POC ABG pH POC ABG pCO2 POC ABG pO2 Sodium Potassium Chloride Carbon Dioxide BUN Creatinine Glucose POC Glucose 368 H 162 H 225 H Lactic Acid Calcium Phosphorus Magnesium Iron TIBC Total Bilirubin Direct Bilirubin AST ALT Alkaline Phosphatase Lactate Dehydrogenase CK-MB (CK-2) Troponin T C-Reactive Protein Total Protein Albumin Triglycerides Cholesterol HDL Cholesterol Vitamin B12 Urine Creatinine Urine Total Protein Heparin-induced Plt Ab Hep Bs Antibody, Quant Crossmatch 12/12/16 12/12/16 12/12/16 06:09 07:52 08:18 WBC 24.1 H RBC 3.16 L Hgb 9.0 L Hct 29.4 L MCV MCHC RDW 16.6 H Plt Count 96 L Lymph % (Auto) [place] # Seg Neutrophils % Seg Neuts % (Manual) 75.0 H Lymphocytes % (Manual) Monocytes % (Manual) Nucleated RBC % Seg Neutrophils # Seg Neutrophils # Man 18.1 H Lymphocytes # (Manual) Monocytes # (Manual) 1.4 H Percent Retic Haptoglobin PT INR Fibrinogen D-Dimer POC ABG pH POC ABG pCO2 POC ABG pO2 Sodium Potassium Chloride Carbon Dioxide BUN Creatinine Glucose POC Glucose 428 H 418 H Lactic Acid Calcium Phosphorus Magnesium Iron TIBC Total Bilirubin Direct Bilirubin AST ALT Alkaline Phosphatase Lactate Dehydrogenase CK-MB (CK-2) Troponin T C-Reactive Protein Total Protein Albumin Triglycerides Cholesterol HDL Cholesterol Vitamin B12 Urine Creatinine Urine Total Protein Heparin-induced Plt Ab Hep Bs Antibody, Quant Crossmatch 12/12/16 12/12/16 12/12/16 08:18 11:31 17:03 WBC RBC Hgb Hct MCV MCHC RDW Plt Count Lymph % (Auto) [place] # Seg Neutrophils % Seg Neuts % (Manual) Lymphocytes % (Manual) Monocytes % (Manual) Nucleated RBC % Seg Neutrophils # Seg Neutrophils # Man Lymphocytes # (Manual) Monocytes # (Manual) Percent Retic Haptoglobin PT INR Fibrinogen D-Dimer POC ABG pH POC ABG pCO2 POC ABG pO2 Sodium Potassium Chloride Carbon Dioxide 12 L D BUN 41 H Creatinine 4.5 H Glucose 369 H POC Glucose 212 H 422 H Lactic Acid Calcium Phosphorus Magnesium Iron TIBC Total Bilirubin Direct Bilirubin AST ALT Alkaline Phosphatase Lactate Dehydrogenase CK-MB (CK-2) Troponin T C-Reactive Protein Total Protein Albumin Triglycerides Cholesterol HDL Cholesterol Vitamin B12 Urine Creatinine Urine Total Protein Heparin-induced Plt Ab Hep Bs Antibody, Quant Crossmatch 12/12/16 12/13/16 12/13/16 21:35 07:49 07:49 WBC 24.0 H RBC 2.90 L Hgb 8.3 L Hct 25.8 L MCV MCHC RDW 15.5 H Plt Count 120 L Lymph % (Auto) [place] # Seg Neutrophils % Seg Neuts % (Manual) 89.0 H Lymphocytes % (Manual) 7.0 L Monocytes % (Manual) Nucleated RBC % Seg Neutrophils # Seg Neutrophils # Man 21.4 H Lymphocytes # (Manual) Monocytes # (Manual) Percent Retic Haptoglobin PT INR Fibrinogen D-Dimer POC ABG pH POC ABG pCO2 POC ABG pO2 Sodium Potassium 3.2 L Chloride Carbon Dioxide BUN 21 H Creatinine 3.0 H Glucose 21 L* POC Glucose 185 H Lactic Acid Calcium Phosphorus Magnesium Iron TIBC Total Bilirubin Direct Bilirubin AST ALT Alkaline Phosphatase Lactate Dehydrogenase CK-MB (CK-2) Troponin T C-Reactive Protein Total Protein Albumin Triglycerides Cholesterol HDL Cholesterol Vitamin B12 Urine Creatinine Urine Total Protein Heparin-induced Plt Ab Hep Bs Antibody, Quant Crossmatch 12/13/16 12/13/16 12/13/16 09:57 11:02 16:52 WBC RBC Hgb Hct MCV MCHC RDW Plt Count Lymph % (Auto) [place] # Seg Neutrophils % Seg Neuts % (Manual) Lymphocytes % (Manual) Monocytes % (Manual) Nucleated RBC % Seg Neutrophils # Seg Neutrophils # Man Lymphocytes # (Manual) Monocytes # (Manual) Percent Retic Haptoglobin PT INR Fibrinogen D-Dimer POC ABG pH POC ABG pCO2 POC ABG pO2 Sodium Potassium Chloride Carbon Dioxide BUN Creatinine Glucose POC Glucose < 40 L 231 H 312 H Lactic Acid Calcium Phosphorus Magnesium Iron TIBC Total Bilirubin Direct Bilirubin AST ALT Alkaline Phosphatase Lactate Dehydrogenase CK-MB (CK-2) Troponin T C-Reactive Protein Total Protein Albumin Triglycerides Cholesterol HDL Cholesterol Vitamin B12 Urine Creatinine Urine Total Protein Heparin-induced Plt Ab Hep Bs Antibody, Quant Crossmatch 12/13/16 12/14/16 12/14/16 21:32 07:07 07:07 WBC 16.7 H RBC 2.80 L Hgb 7.9 L Hct 24.7 L MCV MCHC RDW 15.4 H Plt Count 131 L Lymph % (Auto) 13.1 L [place] # 1.2 H Seg Neutrophils % 78.3 H Seg Neuts % (Manual) Lymphocytes % (Manual) Monocytes % (Manual) Nucleated RBC % Seg Neutrophils # 13.1 H Seg Neutrophils # Man Lymphocytes # (Manual) Monocytes # (Manual) Percent Retic Haptoglobin PT INR Fibrinogen D-Dimer POC ABG pH POC ABG pCO2 POC ABG pO2 Sodium Potassium 3.5 L Chloride Carbon Dioxide BUN 30 H Creatinine 4.6 H D Glucose 181 H POC Glucose 275 H Lactic Acid Calcium 7.7 L Phosphorus Magnesium Iron TIBC Total Bilirubin Direct Bilirubin AST ALT Alkaline Phosphatase Lactate Dehydrogenase CK-MB (CK-2) Troponin T C-Reactive Protein Total Protein Albumin Triglycerides Cholesterol HDL Cholesterol Vitamin B12 Urine Creatinine Urine Total Protein Heparin-induced Plt Ab Hep Bs Antibody, Quant Crossmatch 12/14/16 12/14/16 12/14/16 07:46 11:35 16:24 WBC RBC Hgb Hct MCV MCHC RDW Plt Count Lymph % (Auto) [place] # Seg Neutrophils % Seg Neuts % (Manual) Lymphocytes % (Manual) Monocytes % (Manual) Nucleated RBC % Seg Neutrophils # Seg Neutrophils # Man Lymphocytes # (Manual) Monocytes # (Manual) Percent Retic Haptoglobin PT INR Fibrinogen D-Dimer POC ABG pH POC ABG pCO2 POC ABG pO2 Sodium Potassium Chloride Carbon Dioxide BUN Creatinine Glucose POC Glucose 189 H 254 H 466 H Lactic Acid Calcium Phosphorus Magnesium Iron TIBC Total Bilirubin Direct Bilirubin AST ALT Alkaline Phosphatase Lactate Dehydrogenase CK-MB (CK-2) Troponin T C-Reactive Protein Total Protein Albumin Triglycerides Cholesterol HDL Cholesterol Vitamin B12 Urine Creatinine Urine Total Protein Heparin-induced Plt Ab Hep Bs Antibody, Quant Crossmatch 12/14/16 12/15/16 12/15/16 20:57 06:27 07:46 WBC RBC Hgb Hct MCV MCHC RDW Plt Count Lymph % (Auto) [place] # Seg Neutrophils % Seg Neuts % (Manual) Lymphocytes % (Manual) Monocytes % (Manual) Nucleated RBC % Seg Neutrophils # Seg Neutrophils # Man Lymphocytes # (Manual) Monocytes # (Manual) Percent Retic Haptoglobin PT INR Fibrinogen D-Dimer POC ABG pH POC ABG pCO2 POC ABG pO2 Sodium Potassium Chloride Carbon Dioxide BUN Creatinine Glucose POC Glucose 301 H 183 H 231 H Lactic Acid Calcium Phosphorus Magnesium Iron TIBC Total Bilirubin Direct Bilirubin AST ALT Alkaline Phosphatase Lactate Dehydrogenase CK-MB (CK-2) Troponin T C-Reactive Protein Total Protein Albumin Triglycerides Cholesterol HDL Cholesterol Vitamin B12 Urine Creatinine Urine Total Protein Heparin-induced Plt Ab Hep Bs Antibody, Quant Crossmatch 12/15/16 12/15/16 12/15/16 11:38 15:34 20:51 WBC RBC Hgb Hct MCV MCHC RDW Plt Count Lymph % (Auto) [place] # Seg Neutrophils % Seg Neuts % (Manual) Lymphocytes % (Manual) Monocytes % (Manual) Nucleated RBC % Seg Neutrophils # Seg Neutrophils # Man Lymphocytes # (Manual) Monocytes # (Manual) Percent Retic Haptoglobin PT INR Fibrinogen D-Dimer POC ABG pH POC ABG pCO2 POC ABG pO2 Sodium Potassium Chloride Carbon Dioxide BUN Creatinine Glucose POC Glucose 375 H 313 H 274 H Lactic Acid Calcium Phosphorus Magnesium Iron TIBC Total Bilirubin Direct Bilirubin AST ALT Alkaline Phosphatase Lactate Dehydrogenase CK-MB (CK-2) Troponin T C-Reactive Protein Total Protein Albumin Triglycerides Cholesterol HDL Cholesterol Vitamin B12 Urine Creatinine Urine Total Protein Heparin-induced Plt Ab Hep Bs Antibody, Quant Crossmatch 12/16/16 12/16/16 12/16/16 08:26 09:12 17:13 WBC RBC Hgb Hct MCV MCHC RDW Plt Count Lymph % (Auto) [place] # Seg Neutrophils % Seg Neuts % (Manual) Lymphocytes % (Manual) Monocytes % (Manual) Nucleated RBC % Seg Neutrophils # Seg Neutrophils # Man Lymphocytes # (Manual) Monocytes # (Manual) Percent Retic Haptoglobin PT INR Fibrinogen D-Dimer POC ABG pH POC ABG pCO2 POC ABG pO2 Sodium Potassium Chloride Carbon Dioxide BUN Creatinine Glucose POC Glucose 59 L 127 H > 500 H Lactic Acid Calcium Phosphorus Magnesium Iron TIBC Total Bilirubin Direct Bilirubin AST ALT Alkaline Phosphatase Lactate Dehydrogenase CK-MB (CK-2) Troponin T C-Reactive Protein Total Protein Albumin Triglycerides Cholesterol HDL Cholesterol Vitamin B12 Urine Creatinine Urine Total Protein Heparin-induced Plt Ab Hep Bs Antibody, Quant Crossmatch 12/16/16 12/16/16 Unknown Unknown WBC 17.2 H RBC 2.83 L Hgb 7.9 L Hct 24.4 L MCV MCHC RDW Plt Count Lymph % (Auto) 9.2 L [place] # 0.9 H Seg Neutrophils % 84.1 H Seg Neuts % (Manual) Lymphocytes % (Manual) Monocytes % (Manual) Nucleated RBC % Seg Neutrophils # 14.5 H Seg Neutrophils # Man Lymphocytes # (Manual) Monocytes # (Manual) Percent Retic Haptoglobin PT INR Fibrinogen D-Dimer POC ABG pH POC ABG pCO2 POC ABG pO2 Sodium Potassium Chloride Carbon Dioxide BUN 43 H Creatinine 5.4 H Glucose 131 H POC Glucose Lactic Acid Calcium 6.9 L Phosphorus Magnesium Iron TIBC Total Bilirubin Direct Bilirubin AST ALT Alkaline Phosphatase Lactate Dehydrogenase CK-MB (CK-2) Troponin T C-Reactive Protein Total Protein Albumin Triglycerides Cholesterol HDL Cholesterol Vitamin B12 Urine Creatinine Urine Total Protein Heparin-induced Plt Ab Hep Bs Antibody, Quant Crossmatch Chest x-ray: report reviewed (Improving right lung infiltrate.) Additional Studies: Ventilation perfusion scan reported low probability for pulmonary emboli.
[2016-12-17] MEDS: REGLAN IV SCH ×3 (08:30→23:12)
--- NOTE | 2016-12-17 08:43 | Event Note ---
Date: 12/17/16 Patient has nearly completed a course of treatment for aspiration PNA. She has no systemic signs or evidence of a bloodstream infection. She is cleared to have a permcath placed from an ID standpoint.
[2016-12-17] MEDS: D50W (25GM) IV PRN (09:13)
--- NOTE | 2016-12-17 09:43 | Progress Note ---
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 Now on sliding scale insulin as per Primary team (2) ESRD on HD Current Visit: No Status: Acute Plan to address problem: no signs of renal recovery Will request perm-catheter placement by Vascular, scheduled today will request outpatient dialysis placement, case management consult pleaced Monitor I/O's Renally dose medications Obtain daily weights Renal diet (3) Hypertensive chronic kidney disease Current Visit: Yes Status: Acute Plan to address problem: Continue on anti-hypertensive agent. On Metoprolol. (4) Leukocytosis Current Visit: Yes Status: Acute Qualifiers: Leukocytosis type: L Plan to address problem: followed by ID Subjective Date of service: 12/17/16 Principal diagnosis: Sepsis; Pneumonia Interval history: was hypoglycemic thos morning, was given orange juice, remains to feel weak Objective - Vital Signs Vital signs: Vital Signs - 12hr 12/16/16 12/16/16 12/16/16 22:18 22:25 22:40 Temperature Pulse Rate 102 H Pulse Rate [ 114 H 112 H Anterior Bilateral Throughout] Pulse Rate [ Right Radial] Respiratory Rate Respiratory 20 20 Rate [Anterior Bilateral Throughout] Blood Pressure [Right Arm] O2 Sat by Pulse Oximetry 12/16/16 12/17/16 12/17/16 23:41 04:35 08:24 Temperature 97.4 F L 98.2 F 98.4 F Pulse Rate Pulse Rate [ Anterior Bilateral Throughout] Pulse Rate [ 120 H 109 H 110 H Right Radial] Respiratory 20 18 18 Rate Respiratory Rate [Anterior Bilateral Throughout] Blood Pressure 121/74 121/80 146/76 [Right Arm] O2 Sat by Pulse 99 Oximetry - General Appearance General appearance: well-developed, well-nourished EENT: ATNC, PERRL, mucous membranes moist Neck: no JVD, no carotid bruit Respiratory: Present: Clear to Ascultation Cardiology: regular, S1S2 Gastrointestinal: normoactive bowel sounds, no distended, no guarding Integumentary: no rash, warm and dry Neurologic: no focal deficit, no asterixis, alert and oriented x3 Musculoskeletal: other (no edema in in BLE) Psychiatric: mood/affect appropriate, cooperative - Lab 12/16/16 Unknown 12/16/16 Unknown Most recent lab results Calcium 6.9 mg/dL (8.4-10.2) L 12/16/16 Unknown Phosphorus 3.30 mg/dL (2.5-4.5) 12/16/16 Unknown Magnesium 1.90 mg/dL (1.7-2.3) 12/11/16 04:30 Urine Creatinine 29.5 mg/dL (0.1-20.0) H 12/04/16 11:25 Urine Sodium 26 mEq/L 12/04/16 11:25 Urine Total Protein 33 mg/dL (5-11.8) H 12/04/16 11:25
[2016-12-17] MEDS: NOVOLOG SUB-Q SCH ×4 (09:55→21:26)
[2016-12-17] MEDS: LOVENOX SUB-Q SCH (09:59)
[2016-12-17] MEDS ORDERED: D50W (25GM) IV PRN (10:00)
[2016-12-17 10:12] LABS: BUN/Creatinine Ratio 9.03; Calcium 6.9 mg/dL (8.4-10.2); Chloride 104.5 mmol/L (98-107); Phosphorous 3.9 mg/dL (2.5-4.5); Potassium 3.5 mmol/L (3.6-5.0)
[2016-12-17 10:16] LABS: Basophils % (Auto) 0.6 % (0.0-1.8); Eosinophils % (Auto) 0.9 % (0.0-4.3); Hematocrit 23.3 % (30.3-42.9); Hemoglobin 7.5 gm/dl (10.1-14.3); Mean Corpuscular HGB Conc 32 % (30-34); Mean Corpuscular Hemoglobin 29 pg (28-32); Mean Corpuscular Volume 89 fl (79-97); Platelet Count 253 K/mm3 (140-440); Red Blood Count 2.63 M/mm3 (3.65-5.03); Red Cell Distribution Width 15.3 % (13.2-15.2); White Blood Count 16.6 K/mm3 (4.5-11.0)
[2016-12-17] MEDS: FLAGYL 500 MG/100 ML 500 MG/100 ML BAG IV SCH ×3 (10:33→23:12)
--- NOTE | 2016-12-17 10:40 | Progress Note ---
Assessment and Plan - Patient Problems (1) Severe sepsis Current Visit: Yes Status: Deleted Plan to address problem: - resolved - complete AB's per ID recs (2) Cardiac arrest Current Visit: Yes Status: Acute Plan to address problem: - achieved ROSC and no recurrence (3) Acute renal failure Current Visit: No Status: Acute Qualifiers: Acute renal failure type: A Plan to address problem: - remains on dialysis and appears ESRD - awaiting permacath - per nephrology otherwise (4) Acute respiratory failure with hypoxemia Current Visit: No Status: Acute Plan to address problem: - improved - continue to wean oxygen for sats > 94% - will need bronchoscopy if pneumonia does not resolve over 4-6 weeks - grew pseudomonas and appropriately treated with clinical improvement (5) DKA (diabetic ketoacidoses) Current Visit: Yes Status: Acute Qualifiers: Diabetes mellitus type: type 1 Diabetes mellitus complication detail: without coma Diabetes mellitus custodial insulin use: D Qualified Code(s): E10.10 - Type 1 diabetes mellitus with ketoacidosis without coma Plan to address problem: - resolved - continue SSI (6) Anemia Current Visit: Yes Status: Acute Qualifiers: Anemia type: A Iron deficiency anemia type: I Vitamin B12 deficiency anemia type: V Folate deficiency anemia type: F Bone marrow failure anemia type: B Hemolytic anemia type: H Other causes of anemia: O Chronic kidney disease stage: C Plan to address problem: - multifactorial - continue to treat azotemia - full w/up per attending (7) Discharge planning issues Current Visit: No Status: Acute Plan to address problem: - awaits permacath then outpatient dialysis set-up ...will re-evaluate in am & prn Subjective Date of service: 12/17/16 Principal diagnosis: Sepsis; Pneumonia Interval history: Seen and examined at bedside; 24 hour events reviewed; nursing and respiratory care staff consulted; no adverse overnight events reported to me; sleeping in bed peacefully; denies acute chest pains or increased SOB; No N/V/F/C; awaiting perm-cath placement Objective Vital Signs - 12hr 12/16/16 12/17/16 12/17/16 23:41 04:35 08:24 Temperature 97.4 F L 98.2 F 98.4 F Pulse Rate [ 120 H 109 H 110 H Right Radial] Respiratory 20 18 18 Rate Blood Pressure 121/74 121/80 146/76 [Right Arm] O2 Sat by Pulse 99 Oximetry Constitutional: no acute distress Eyes: non-icteric ENT: oropharynx moist Neck: supple, no lymphadenopathy Effort: mildly labored Ascultation: Right: rhonchi Cardiovascular: regular rate and rhythm Gastrointestinal: normoactive bowel sounds, soft, non-tender, non-distended Integumentary: normal Extremities: no cyanosis, no edema, pulses normal, no ischemia or petechiae Neurologic: normal mental status, non-focal exam, pupils equal and round, motor strength normal and Psychiatric: mood appropriate, affect normal CBC and BMP: 12/19/16 10:23 12/19/16 10:23 ABG, PT/INR, D-dimer: ABG POC ABG pH 7.326 (7.35-7.45) L 12/09/16 12:02 POC ABG pCO2 37.7 (35-45) 12/09/16 12:02 POC ABG pO2 115 (80-105) H 12/09/16 12:02 POC ABG HCO3 19.7 12/09/16 12:02 POC ABG Total CO2 21 12/09/16 12:02 POC ABG O2 Sat 98 12/09/16 12:02 PT/INR, D-dimer PT 15.3 Sec. (12.2-14.9) H 12/08/16 19:00 INR 1.22 (0.87-1.13) H 12/08/16 19:00 D-Dimer 5507.36 ng/mlDDU (0-234) H 12/08/16 19:00 Abnormal lab findings: Abnormal Labs 12/04/16 12/04/16 12/04/16 01:19 01:36 02:21 WBC RBC Hgb Hct MCV MCHC RDW Plt Count Lymph % (Auto) [place] # Seg Neutrophils % Seg Neuts % (Manual) Lymphocytes % (Manual) Monocytes % (Manual) Nucleated RBC % Seg Neutrophils # Seg Neutrophils # Man Lymphocytes # (Manual) Monocytes # (Manual) Percent Retic Haptoglobin PT INR Fibrinogen D-Dimer POC ABG pH 6.759 L POC ABG pCO2 POC ABG pO2 437 H Sodium Potassium Chloride Carbon Dioxide BUN Creatinine Glucose POC Glucose > 500 H Lactic Acid Calcium Phosphorus 15.70 H Magnesium 4.30 H Iron TIBC Total Bilirubin Direct Bilirubin AST ALT Alkaline Phosphatase Lactate Dehydrogenase CK-MB (CK-2) Troponin T C-Reactive Protein Total Protein Albumin Triglycerides Cholesterol HDL Cholesterol Vitamin B12 Urine Creatinine Urine Total Protein Heparin-induced Plt Ab Hep Bs Antibody, Quant Crossmatch 12/04/16 12/04/16 12/04/16 03:55 04:00 05:11 WBC RBC Hgb Hct MCV MCHC RDW Plt Count Lymph % (Auto) [place] # Seg Neutrophils % Seg Neuts % (Manual) Lymphocytes % (Manual) Monocytes % (Manual) Nucleated RBC % Seg Neutrophils # Seg Neutrophils # Man Lymphocytes # (Manual) Monocytes # (Manual) Percent Retic Haptoglobin PT INR Fibrinogen D-Dimer POC ABG pH POC ABG pCO2 POC ABG pO2 Sodium Potassium Chloride 91.4 L Carbon Dioxide 8 L* BUN 55 H Creatinine 2.8 H Glucose 1610 H* POC Glucose > 500 H > 500 H Lactic Acid Calcium Phosphorus Magnesium Iron TIBC Total Bilirubin Direct Bilirubin AST ALT Alkaline Phosphatase Lactate Dehydrogenase CK-MB (CK-2) Troponin T C-Reactive Protein Total Protein Albumin Triglycerides Cholesterol HDL Cholesterol Vitamin B12 Urine Creatinine Urine Total Protein Heparin-induced Plt Ab Hep Bs Antibody, Quant Crossmatch 12/04/16 12/04/16 12/04/16 05:40 05:54 06:58 WBC RBC Hgb Hct MCV MCHC RDW Plt Count Lymph % (Auto) [place] # Seg Neutrophils % Seg Neuts % (Manual) Lymphocytes % (Manual) Monocytes % (Manual) Nucleated RBC % Seg Neutrophils # Seg Neutrophils # Man Lymphocytes # (Manual) Monocytes # (Manual) Percent Retic Haptoglobin PT INR Fibrinogen D-Dimer POC ABG pH 7.154 L POC ABG pCO2 27.5 L POC ABG pO2 111 H Sodium Potassium Chloride Carbon Dioxide BUN Creatinine Glucose POC Glucose > 500 H > 500 H Lactic Acid Calcium Phosphorus Magnesium Iron TIBC Total Bilirubin Direct Bilirubin AST ALT Alkaline Phosphatase Lactate Dehydrogenase CK-MB (CK-2) Troponin T C-Reactive Protein Total Protein Albumin Triglycerides Cholesterol HDL Cholesterol Vitamin B12 Urine Creatinine Urine Total Protein Heparin-induced Plt Ab Hep Bs Antibody, Quant Crossmatch 12/04/16 12/04/16 12/04/16 07:49 07:55 07:55 WBC RBC Hgb Hct MCV MCHC RDW Plt Count Lymph % (Auto) [place] # Seg Neutrophils % Seg Neuts % (Manual) Lymphocytes % (Manual) Monocytes % (Manual) Nucleated RBC % Seg Neutrophils # Seg Neutrophils # Man Lymphocytes # (Manual) Monocytes # (Manual) Percent Retic Haptoglobin PT INR Fibrinogen D-Dimer POC ABG pH POC ABG pCO2 POC ABG pO2 Sodium Potassium 3.3 L Chloride Carbon Dioxide 9 L* BUN 53 H Creatinine 2.9 H Glucose 1229 H* POC Glucose > 500 H Lactic Acid Calcium Phosphorus Magnesium Iron TIBC Total Bilirubin Direct Bilirubin AST ALT Alkaline Phosphatase Lactate Dehydrogenase CK-MB (CK-2) Troponin T 0.111 H* D C-Reactive Protein Total Protein Albumin Triglycerides 570 H Cholesterol 221 H HDL Cholesterol 37 L Vitamin B12 Urine Creatinine Urine Total Protein Heparin-induced Plt Ab Hep Bs Antibody, Quant Crossmatch 12/04/16 12/04/16 12/04/16 07:55 09:55 09:55 WBC RBC 2.90 L Hgb 8.5 L Hct 30.2 L D MCV 105 H D MCHC 28 L RDW 19.2 H Plt Count Lymph % (Auto) [place] # Seg Neutrophils % Seg Neuts % (Manual) Lymphocytes % (Manual) 11.0 L Monocytes % (Manual) Nucleated RBC % Seg Neutrophils # Seg Neutrophils # Man Lymphocytes # (Manual) 0.6 L Monocytes # (Manual) Percent Retic Haptoglobin PT INR Fibrinogen D-Dimer POC ABG pH POC ABG pCO2 POC ABG pO2 Sodium Potassium 3.1 L Chloride Carbon Dioxide 7 L* BUN 51 H Creatinine 3.2 H Glucose 969 H* POC Glucose Lactic Acid Calcium 10.4 H D Phosphorus Magnesium Iron TIBC Total Bilirubin Direct Bilirubin AST ALT Alkaline Phosphatase Lactate Dehydrogenase CK-MB (CK-2) 4.6 H Troponin T 0.140 H* D C-Reactive Protein Total Protein Albumin Triglycerides Cholesterol HDL Cholesterol Vitamin B12 Urine Creatinine Urine Total Protein Heparin-induced Plt Ab Hep Bs Antibody, Quant Crossmatch 12/04/16 12/04/16 12/04/16 09:55 10:37 11:25 WBC RBC Hgb Hct MCV MCHC RDW Plt Count Lymph % (Auto) [place] # Seg Neutrophils % Seg Neuts % (Manual) Lymphocytes % (Manual) Monocytes % (Manual) Nucleated RBC % Seg Neutrophils # Seg Neutrophils # Man Lymphocytes # (Manual) Monocytes # (Manual) Percent Retic Haptoglobin PT INR Fibrinogen D-Dimer POC ABG pH 7.215 L POC ABG pCO2 18.8 L POC ABG pO2 193 H Sodium Potassium Chloride Carbon Dioxide BUN Creatinine Glucose POC Glucose Lactic Acid Calcium Phosphorus Magnesium 3.70 H Iron TIBC Total Bilirubin Direct Bilirubin AST ALT Alkaline Phosphatase Lactate Dehydrogenase CK-MB (CK-2) Troponin T C-Reactive Protein Total Protein Albumin Triglycerides Cholesterol HDL Cholesterol Vitamin B12 Urine Creatinine 29.5 H Urine Total Protein 33 H Heparin-induced Plt Ab Hep Bs Antibody, Quant Crossmatch 12/04/16 12/04/16 12/04/16 12:00 12:48 13:00 WBC RBC Hgb Hct MCV MCHC RDW Plt Count Lymph % (Auto) [place] # Seg Neutrophils % Seg Neuts % (Manual) Lymphocytes % (Manual) Monocytes % (Manual) Nucleated RBC % Seg Neutrophils # Seg Neutrophils # Man Lymphocytes # (Manual) Monocytes # (Manual) Percent Retic Haptoglobin PT INR Fibrinogen D-Dimer POC ABG pH POC ABG pCO2 POC ABG pO2 Sodium 149 H 150 H Potassium 3.2 L 3.2 L Chloride 109.1 H Carbon Dioxide 8 L* 8 L* BUN 52 H 49 H Creatinine 3.4 H 3.1 H Glucose 723 H* 574 H* POC Glucose Lactic Acid 18.80 H* Calcium Phosphorus Magnesium Iron TIBC Total Bilirubin Direct Bilirubin AST ALT Alkaline Phosphatase Lactate Dehydrogenase CK-MB (CK-2) Troponin T C-Reactive Protein Total Protein Albumin Triglycerides Cholesterol HDL Cholesterol Vitamin B12 Urine Creatinine Urine Total Protein Heparin-induced Plt Ab Hep Bs Antibody, Quant Crossmatch 12/04/16 12/04/16 12/04/16 13:01 14:41 16:06 WBC RBC Hgb Hct MCV MCHC RDW Plt Count Lymph % (Auto) [place] # Seg Neutrophils % Seg Neuts % (Manual) Lymphocytes % (Manual) Monocytes % (Manual) Nucleated RBC % Seg Neutrophils # Seg Neutrophils # Man Lymphocytes # (Manual) Monocytes # (Manual) Percent Retic Haptoglobin PT INR Fibrinogen D-Dimer POC ABG pH POC ABG pCO2 POC ABG pO2 Sodium 151 H Potassium 3.2 L Chloride 108.1 H Carbon Dioxide 10 L BUN 49 H Creatinine 3.0 H Glucose 383 H POC Glucose 292 H Lactic Acid Calcium Phosphorus Magnesium Iron TIBC Total Bilirubin Direct Bilirubin AST ALT Alkaline Phosphatase Lactate Dehydrogenase CK-MB (CK-2) Troponin T C-Reactive Protein 3.50 H Total Protein Albumin Triglycerides Cholesterol HDL Cholesterol Vitamin B12 Urine Creatinine Urine Total Protein Heparin-induced Plt Ab Hep Bs Antibody, Quant Crossmatch 12/04/16 12/04/16 12/04/16 17:15 17:25 18:07 WBC RBC Hgb Hct MCV MCHC RDW Plt Count Lymph % (Auto) [place] # Seg Neutrophils % Seg Neuts % (Manual) Lymphocytes % (Manual) Monocytes % (Manual) Nucleated RBC % Seg Neutrophils # Seg Neutrophils # Man Lymphocytes # (Manual) Monocytes # (Manual) Percent Retic Haptoglobin PT INR Fibrinogen D-Dimer POC ABG pH 7.255 L POC ABG pCO2 16.9 L POC ABG pO2 169 H Sodium Potassium Chloride Carbon Dioxide BUN Creatinine Glucose POC Glucose 246 H Lactic Acid 18.50 H* Calcium Phosphorus Magnesium Iron TIBC Total Bilirubin Direct Bilirubin AST ALT Alkaline Phosphatase Lactate Dehydrogenase CK-MB (CK-2) Troponin T C-Reactive Protein Total Protein Albumin Triglycerides Cholesterol HDL Cholesterol Vitamin B12 Urine Creatinine Urine Total Protein Heparin-induced Plt Ab Hep Bs Antibody, Quant Crossmatch 12/04/16 12/04/16 12/04/16 19:34 20:31 21:15 WBC RBC Hgb Hct MCV MCHC RDW Plt Count Lymph % (Auto) [place] # Seg Neutrophils % Seg Neuts % (Manual) Lymphocytes % (Manual) Monocytes % (Manual) Nucleated RBC % Seg Neutrophils # Seg Neutrophils # Man Lymphocytes # (Manual) Monocytes # (Manual) Percent Retic Haptoglobin PT INR Fibrinogen D-Dimer POC ABG pH POC ABG pCO2 POC ABG pO2 Sodium Potassium Chloride Carbon Dioxide BUN Creatinine Glucose POC Glucose 189 H 126 H 139 H Lactic Acid Calcium Phosphorus Magnesium Iron TIBC Total Bilirubin Direct Bilirubin AST ALT Alkaline Phosphatase Lactate Dehydrogenase CK-MB (CK-2) Troponin T C-Reactive Protein Total Protein Albumin Triglycerides Cholesterol HDL Cholesterol Vitamin B12 Urine Creatinine Urine Total Protein Heparin-induced Plt Ab Hep Bs Antibody, Quant Crossmatch 12/04/16 12/04/16 12/04/16 21:25 22:37 23:35 WBC RBC Hgb Hct MCV MCHC RDW Plt Count Lymph % (Auto) [place] # Seg Neutrophils % Seg Neuts % (Manual) Lymphocytes % (Manual) Monocytes % (Manual) Nucleated RBC % Seg Neutrophils # Seg Neutrophils # Man Lymphocytes # (Manual) Monocytes # (Manual) Percent Retic Haptoglobin PT INR Fibrinogen D-Dimer POC ABG pH 7.294 L POC ABG pCO2 16.7 L POC ABG pO2 169 H Sodium Potassium Chloride Carbon Dioxide BUN Creatinine Glucose POC Glucose 131 H 106 H Lactic Acid Calcium Phosphorus Magnesium Iron TIBC Total Bilirubin Direct Bilirubin AST ALT Alkaline Phosphatase Lactate Dehydrogenase CK-MB (CK-2) Troponin T C-Reactive Protein Total Protein Albumin Triglycerides Cholesterol HDL Cholesterol Vitamin B12 Urine Creatinine Urine Total Protein Heparin-induced Plt Ab Hep Bs Antibody, Quant Crossmatch 12/05/16 12/05/16 12/05/16 02:40 02:50 02:50 WBC RBC Hgb Hct MCV MCHC RDW Plt Count Lymph % (Auto) [place] # Seg Neutrophils % Seg Neuts % (Manual) Lymphocytes % (Manual) Monocytes % (Manual) Nucleated RBC % Seg Neutrophils # Seg Neutrophils # Man Lymphocytes # (Manual) Monocytes # (Manual) Percent Retic Haptoglobin PT INR Fibrinogen D-Dimer POC ABG pH POC ABG pCO2 POC ABG pO2 Sodium 151 H Potassium Chloride 113.8 H Carbon Dioxide 12 L BUN 46 H Creatinine 3.2 H Glucose 165 H POC Glucose 109 H Lactic Acid 9.80 H* Calcium 8.3 L Phosphorus Magnesium Iron TIBC Total Bilirubin Direct Bilirubin AST ALT Alkaline Phosphatase Lactate Dehydrogenase CK-MB (CK-2) Troponin T C-Reactive Protein Total Protein Albumin Triglycerides Cholesterol HDL Cholesterol Vitamin B12 Urine Creatinine Urine Total Protein Heparin-induced Plt Ab Hep Bs Antibody, Quant Crossmatch 12/05/16 12/05/16 12/05/16 04:01 04:30 04:30 WBC 19.1 H RBC 2.91 L Hgb 8.0 L Hct 25.4 L MCV MCHC RDW 17.8 H Plt Count Lymph % (Auto) [place] # Seg Neutrophils % Seg Neuts % (Manual) 17.0 L Lymphocytes % (Manual) 7.0 L Monocytes % (Manual) Nucleated RBC % 3.0 H Seg Neutrophils # Seg Neutrophils # Man Lymphocytes # (Manual) Monocytes # (Manual) Percent Retic Haptoglobin PT INR Fibrinogen D-Dimer POC ABG pH POC ABG pCO2 POC ABG pO2 Sodium 152 H Potassium Chloride 113.5 H Carbon Dioxide 12 L BUN 47 H Creatinine 3.2 H Glucose 133 H POC Glucose 179 H Lactic Acid Calcium 8.3 L Phosphorus 1.00 L D Magnesium Iron TIBC Total Bilirubin Direct Bilirubin AST ALT Alkaline Phosphatase Lactate Dehydrogenase CK-MB (CK-2) Troponin T C-Reactive Protein Total Protein Albumin Triglycerides Cholesterol HDL Cholesterol Vitamin B12 Urine Creatinine Urine Total Protein Heparin-induced Plt Ab Hep Bs Antibody, Quant Crossmatch 12/05/16 12/05/16 12/05/16 05:32 08:01 08:48 WBC RBC Hgb Hct MCV MCHC RDW Plt Count Lymph % (Auto) [place] # Seg Neutrophils % Seg Neuts % (Manual) Lymphocytes % (Manual) Monocytes % (Manual) Nucleated RBC % Seg Neutrophils # Seg Neutrophils # Man Lymphocytes # (Manual) Monocytes # (Manual) Percent Retic Haptoglobin PT INR Fibrinogen D-Dimer POC ABG pH POC ABG pCO2 17.6 L POC ABG pO2 62 L Sodium Potassium Chloride Carbon Dioxide BUN Creatinine Glucose POC Glucose 126 H 130 H Lactic Acid Calcium Phosphorus Magnesium Iron TIBC Total Bilirubin Direct Bilirubin AST ALT Alkaline Phosphatase Lactate Dehydrogenase CK-MB (CK-2) Troponin T C-Reactive Protein Total Protein Albumin Triglycerides Cholesterol HDL Cholesterol Vitamin B12 Urine Creatinine Urine Total Protein Heparin-induced Plt Ab Hep Bs Antibody, Quant Crossmatch 12/05/16 12/05/16 12/05/16 08:54 12:01 15:15 WBC RBC Hgb Hct MCV MCHC RDW Plt Count Lymph % (Auto) [place] # Seg Neutrophils % Seg Neuts % (Manual) Lymphocytes % (Manual) Monocytes % (Manual) Nucleated RBC % Seg Neutrophils # Seg Neutrophils # Man Lymphocytes # (Manual) Monocytes # (Manual) Percent Retic Haptoglobin PT INR Fibrinogen D-Dimer POC ABG pH POC ABG pCO2 POC ABG pO2 Sodium Potassium Chloride Carbon Dioxide BUN Creatinine Glucose POC Glucose 157 H 117 H 166 H Lactic Acid Calcium Phosphorus Magnesium Iron TIBC Total Bilirubin Direct Bilirubin AST ALT Alkaline Phosphatase Lactate Dehydrogenase CK-MB (CK-2) Troponin T C-Reactive Protein Total Protein Albumin Triglycerides Cholesterol HDL Cholesterol Vitamin B12 Urine Creatinine Urine Total Protein Heparin-induced Plt Ab Hep Bs Antibody, Quant Crossmatch 12/05/16 12/05/16 12/05/16 16:10 16:55 17:08 WBC RBC Hgb Hct MCV MCHC RDW Plt Count Lymph % (Auto) [place] # Seg Neutrophils % Seg Neuts % (Manual) Lymphocytes % (Manual) Monocytes % (Manual) Nucleated RBC % Seg Neutrophils # Seg Neutrophils # Man Lymphocytes # (Manual) Monocytes # (Manual) Percent Retic Haptoglobin PT INR Fibrinogen D-Dimer POC ABG pH POC ABG pCO2 POC ABG pO2 Sodium Potassium Chloride Carbon Dioxide BUN Creatinine Glucose POC Glucose 178 H 169 H Lactic Acid Calcium Phosphorus 5.00 H D Magnesium Iron TIBC Total Bilirubin Direct Bilirubin AST ALT Alkaline Phosphatase Lactate Dehydrogenase CK-MB (CK-2) Troponin T C-Reactive Protein Total Protein Albumin Triglycerides Cholesterol HDL Cholesterol Vitamin B12 Urine Creatinine Urine Total Protein Heparin-induced Plt Ab Hep Bs Antibody, Quant Crossmatch 12/05/16 12/05/16 12/05/16 18:08 18:51 20:04 WBC RBC Hgb Hct MCV MCHC RDW Plt Count Lymph % (Auto) [place] # Seg Neutrophils % Seg Neuts % (Manual) Lymphocytes % (Manual) Monocytes % (Manual) Nucleated RBC % Seg Neutrophils # Seg Neutrophils # Man Lymphocytes # (Manual) Monocytes # (Manual) Percent Retic Haptoglobin PT INR Fibrinogen D-Dimer POC ABG pH POC ABG pCO2 POC ABG pO2 Sodium Potassium Chloride Carbon Dioxide BUN Creatinine Glucose POC Glucose 147 H 113 H 64 L Lactic Acid Calcium Phosphorus Magnesium Iron TIBC Total Bilirubin Direct Bilirubin AST ALT Alkaline Phosphatase Lactate Dehydrogenase CK-MB (CK-2) Troponin T C-Reactive Protein Total Protein Albumin Triglycerides Cholesterol HDL Cholesterol Vitamin B12 Urine Creatinine Urine Total Protein Heparin-induced Plt Ab Hep Bs Antibody, Quant Crossmatch 12/05/16 12/05/16 12/05/16 21:34 22:08 23:19 WBC RBC Hgb Hct MCV MCHC RDW Plt Count Lymph % (Auto) [place] # Seg Neutrophils % Seg Neuts % (Manual) Lymphocytes % (Manual) Monocytes % (Manual) Nucleated RBC % Seg Neutrophils # Seg Neutrophils # Man Lymphocytes # (Manual) Monocytes # (Manual) Percent Retic Haptoglobin PT INR Fibrinogen D-Dimer POC ABG pH 7.303 L POC ABG pCO2 18.3 L POC ABG pO2 73 L Sodium Potassium Chloride Carbon Dioxide BUN Creatinine Glucose POC Glucose 141 H 200 H Lactic Acid Calcium Phosphorus Magnesium Iron TIBC Total Bilirubin Direct Bilirubin AST ALT Alkaline Phosphatase Lactate Dehydrogenase CK-MB (CK-2) Troponin T C-Reactive Protein Total Protein Albumin Triglycerides Cholesterol HDL Cholesterol Vitamin B12 Urine Creatinine Urine Total Protein Heparin-induced Plt Ab Hep Bs Antibody, Quant Crossmatch 12/06/16 12/06/16 12/06/16 00:01 01:09 02:00 WBC RBC Hgb Hct MCV MCHC RDW Plt Count Lymph % (Auto) [place] # Seg Neutrophils % Seg Neuts % (Manual) Lymphocytes % (Manual) Monocytes % (Manual) Nucleated RBC % Seg Neutrophils # Seg Neutrophils # Man Lymphocytes # (Manual) Monocytes # (Manual) Percent Retic Haptoglobin PT INR Fibrinogen D-Dimer POC ABG pH POC ABG pCO2 POC ABG pO2 Sodium Potassium Chloride Carbon Dioxide BUN Creatinine Glucose POC Glucose 211 H 116 H 57 L Lactic Acid Calcium Phosphorus Magnesium Iron TIBC Total Bilirubin Direct Bilirubin AST ALT Alkaline Phosphatase Lactate Dehydrogenase CK-MB (CK-2) Troponin T C-Reactive Protein Total Protein Albumin Triglycerides Cholesterol HDL Cholesterol Vitamin B12 Urine Creatinine Urine Total Protein Heparin-induced Plt Ab Hep Bs Antibody, Quant Crossmatch 12/06/16 12/06/16 12/06/16 04:14 04:50 04:50 WBC RBC 2.68 L Hgb 7.6 L Hct 23.2 L MCV MCHC RDW 18.9 H Plt Count Lymph % (Auto) [place] # Seg Neutrophils % Seg Neuts % (Manual) 32.0 L Lymphocytes % (Manual) Monocytes % (Manual) Nucleated RBC % 3.0 H Seg Neutrophils # Seg Neutrophils # Man Lymphocytes # (Manual) 0.9 L Monocytes # (Manual) Percent Retic Haptoglobin PT INR Fibrinogen D-Dimer POC ABG pH POC ABG pCO2 POC ABG pO2 Sodium Potassium 5.8 H D Chloride 111.5 H Carbon Dioxide 11 L BUN 52 H Creatinine 3.8 H Glucose 186 H POC Glucose 133 H Lactic Acid Calcium 6.5 L D Phosphorus 5.80 H Magnesium Iron TIBC Total Bilirubin Direct Bilirubin AST ALT Alkaline Phosphatase Lactate Dehydrogenase CK-MB (CK-2) Troponin T C-Reactive Protein Total Protein Albumin Triglycerides Cholesterol HDL Cholesterol Vitamin B12 Urine Creatinine Urine Total Protein Heparin-induced Plt Ab Hep Bs Antibody, Quant Crossmatch 12/06/16 12/06/16 12/06/16 04:50 05:04 05:07 WBC RBC Hgb Hct MCV MCHC RDW Plt Count Lymph % (Auto) [place] # Seg Neutrophils % Seg Neuts % (Manual) Lymphocytes % (Manual) Monocytes % (Manual) Nucleated RBC % Seg Neutrophils # Seg Neutrophils # Man Lymphocytes # (Manual) Monocytes # (Manual) Percent Retic Haptoglobin PT INR Fibrinogen D-Dimer POC ABG pH POC ABG pCO2 13.0 L POC ABG pO2 111 H Sodium Potassium Chloride Carbon Dioxide BUN Creatinine Glucose POC Glucose 127 H Lactic Acid 6.50 H* Calcium Phosphorus Magnesium Iron TIBC Total Bilirubin Direct Bilirubin AST ALT Alkaline Phosphatase Lactate Dehydrogenase CK-MB (CK-2) Troponin T C-Reactive Protein Total Protein Albumin Triglycerides Cholesterol HDL Cholesterol Vitamin B12 Urine Creatinine Urine Total Protein Heparin-induced Plt Ab Hep Bs Antibody, Quant Crossmatch 12/06/16 12/06/16 12/06/16 06:10 06:54 07:46 WBC RBC Hgb Hct MCV MCHC RDW Plt Count Lymph % (Auto) [place] # Seg Neutrophils % Seg Neuts % (Manual) Lymphocytes % (Manual) Monocytes % (Manual) Nucleated RBC % Seg Neutrophils # Seg Neutrophils # Man Lymphocytes # (Manual) Monocytes # (Manual) Percent Retic Haptoglobin PT INR Fibrinogen D-Dimer POC ABG pH POC ABG pCO2 POC ABG pO2 Sodium Potassium Chloride Carbon Dioxide BUN Creatinine Glucose POC Glucose 219 H 237 H 158 H Lactic Acid Calcium Phosphorus Magnesium Iron TIBC Total Bilirubin Direct Bilirubin AST ALT Alkaline Phosphatase Lactate Dehydrogenase CK-MB (CK-2) Troponin T C-Reactive Protein Total Protein Albumin Triglycerides Cholesterol HDL Cholesterol Vitamin B12 Urine Creatinine Urine Total Protein Heparin-induced Plt Ab Hep Bs Antibody, Quant Crossmatch 12/06/16 12/06/16 12/06/16 08:55 10:27 11:58 WBC RBC Hgb Hct MCV MCHC RDW Plt Count Lymph % (Auto) [place] # Seg Neutrophils % Seg Neuts % (Manual) Lymphocytes % (Manual) Monocytes % (Manual) Nucleated RBC % Seg Neutrophils # Seg Neutrophils # Man Lymphocytes # (Manual) Monocytes # (Manual) Percent Retic Haptoglobin PT INR Fibrinogen D-Dimer POC ABG pH POC ABG pCO2 POC ABG pO2 Sodium Potassium Chloride Carbon Dioxide BUN Creatinine Glucose POC Glucose 40 L 128 H 144 H Lactic Acid Calcium Phosphorus Magnesium Iron TIBC Total Bilirubin Direct Bilirubin AST ALT Alkaline Phosphatase Lactate Dehydrogenase CK-MB (CK-2) Troponin T C-Reactive Protein Total Protein Albumin Triglycerides Cholesterol HDL Cholesterol Vitamin B12 Urine Creatinine Urine Total Protein Heparin-induced Plt Ab Hep Bs Antibody, Quant Crossmatch 12/06/16 12/06/16 12/06/16 18:14 19:00 19:06 WBC RBC Hgb Hct MCV MCHC RDW Plt Count Lymph % (Auto) [place] # Seg Neutrophils % Seg Neuts % (Manual) Lymphocytes % (Manual) Monocytes % (Manual) Nucleated RBC % Seg Neutrophils # Seg Neutrophils # Man Lymphocytes # (Manual) Monocytes # (Manual) Percent Retic Haptoglobin PT INR Fibrinogen D-Dimer POC ABG pH POC ABG pCO2 POC ABG pO2 Sodium 149 H Potassium 5.6 H Chloride 115.9 H Carbon Dioxide 13 L BUN 56 H Creatinine 4.3 H Glucose 124 H POC Glucose 55 L 148 H Lactic Acid Calcium 6.0 L Phosphorus Magnesium Iron TIBC Total Bilirubin Direct Bilirubin AST ALT Alkaline Phosphatase Lactate Dehydrogenase CK-MB (CK-2) Troponin T C-Reactive Protein Total Protein Albumin Triglycerides Cholesterol HDL Cholesterol Vitamin B12 Urine Creatinine Urine Total Protein Heparin-induced Plt Ab Hep Bs Antibody, Quant Crossmatch 12/06/16 12/06/16 12/07/16 21:24 21:51 02:32 WBC RBC Hgb Hct MCV MCHC RDW Plt Count Lymph % (Auto) [place] # Seg Neutrophils % Seg Neuts % (Manual) Lymphocytes % (Manual) Monocytes % (Manual) Nucleated RBC % Seg Neutrophils # Seg Neutrophils # Man Lymphocytes # (Manual) Monocytes # (Manual) Percent Retic Haptoglobin PT INR Fibrinogen D-Dimer POC ABG pH POC ABG pCO2 17.0 L POC ABG pO2 142 H Sodium Potassium Chloride Carbon Dioxide BUN Creatinine Glucose POC Glucose 107 H 175 H Lactic Acid Calcium Phosphorus Magnesium Iron TIBC Total Bilirubin Direct Bilirubin AST ALT Alkaline Phosphatase Lactate Dehydrogenase CK-MB (CK-2) Troponin T C-Reactive Protein Total Protein Albumin Triglycerides Cholesterol HDL Cholesterol Vitamin B12 Urine Creatinine Urine Total Protein Heparin-induced Plt Ab Hep Bs Antibody, Quant Crossmatch 12/07/16 12/07/16 12/07/16 05:01 05:25 06:00 WBC RBC 2.52 L Hgb 7.1 L Hct 22.1 L MCV MCHC RDW 19.3 H Plt Count 90 L Lymph % (Auto) [place] # Seg Neutrophils % Seg Neuts % (Manual) 75.0 H Lymphocytes % (Manual) 11.0 L Monocytes % (Manual) Nucleated RBC % Seg Neutrophils # Seg Neutrophils # Man Lymphocytes # (Manual) 0.7 L Monocytes # (Manual) Percent Retic Haptoglobin PT INR Fibrinogen D-Dimer POC ABG pH 7.300 L POC ABG pCO2 17.1 L POC ABG pO2 140 H Sodium Potassium Chloride Carbon Dioxide BUN Creatinine Glucose POC Glucose 279 H Lactic Acid Calcium Phosphorus Magnesium Iron TIBC Total Bilirubin Direct Bilirubin AST ALT Alkaline Phosphatase Lactate Dehydrogenase CK-MB (CK-2) Troponin T C-Reactive Protein Total Protein Albumin Triglycerides Cholesterol HDL Cholesterol Vitamin B12 Urine Creatinine Urine Total Protein Heparin-induced Plt Ab Hep Bs Antibody, Quant Crossmatch 12/07/16 12/07/16 12/07/16 06:00 06:00 07:30 WBC RBC Hgb Hct MCV MCHC RDW Plt Count Lymph % (Auto) [place] # Seg Neutrophils % Seg Neuts % (Manual) Lymphocytes % (Manual) Monocytes % (Manual) Nucleated RBC % Seg Neutrophils # Seg Neutrophils # Man Lymphocytes # (Manual) Monocytes # (Manual) Percent Retic Haptoglobin PT INR Fibrinogen D-Dimer POC ABG pH POC ABG pCO2 POC ABG pO2 Sodium Potassium Chloride Carbon Dioxide BUN Creatinine Glucose POC Glucose Lactic Acid 6.90 H* Calcium Phosphorus 6.80 H Magnesium Iron TIBC Total Bilirubin Direct Bilirubin AST ALT Alkaline Phosphatase Lactate Dehydrogenase CK-MB (CK-2) Troponin T C-Reactive Protein 39.40 H Total Protein Albumin Triglycerides Cholesterol HDL Cholesterol Vitamin B12 Urine Creatinine Urine Total Protein Heparin-induced Plt Ab Hep Bs Antibody, Quant Crossmatch 12/07/16 12/07/16 12/07/16 08:40 10:53 14:31 WBC RBC Hgb Hct MCV MCHC RDW Plt Count Lymph % (Auto) [place] # Seg Neutrophils % Seg Neuts % (Manual) Lymphocytes % (Manual) Monocytes % (Manual) Nucleated RBC % Seg Neutrophils # Seg Neutrophils # Man Lymphocytes # (Manual) Monocytes # (Manual) Percent Retic Haptoglobin PT INR Fibrinogen D-Dimer POC ABG pH POC ABG pCO2 POC ABG pO2 Sodium Potassium 7.0 H* D Chloride 112.4 H Carbon Dioxide 8 L* BUN 61 H Creatinine 5.1 H Glucose 213 H POC Glucose 353 H 52 L Lactic Acid Calcium 5.8 L* Phosphorus Magnesium Iron TIBC Total Bilirubin Direct Bilirubin AST ALT Alkaline Phosphatase Lactate Dehydrogenase CK-MB (CK-2) Troponin T C-Reactive Protein Total Protein Albumin Triglycerides Cholesterol HDL Cholesterol Vitamin B12 Urine Creatinine Urine Total Protein Heparin-induced Plt Ab Hep Bs Antibody, Quant Crossmatch 12/07/16 12/07/16 12/07/16 14:45 15:33 16:22 WBC RBC Hgb Hct MCV MCHC RDW Plt Count Lymph % (Auto) [place] # Seg Neutrophils % Seg Neuts % (Manual) Lymphocytes % (Manual) Monocytes % (Manual) Nucleated RBC % Seg Neutrophils # Seg Neutrophils # Man Lymphocytes # (Manual) Monocytes # (Manual) Percent Retic Haptoglobin PT 17.5 H INR 1.44 H Fibrinogen D-Dimer POC ABG pH POC ABG pCO2 POC ABG pO2 Sodium Potassium Chloride Carbon Dioxide BUN Creatinine Glucose POC Glucose < 40 L 118 H Lactic Acid Calcium Phosphorus Magnesium Iron TIBC Total Bilirubin Direct Bilirubin AST ALT Alkaline Phosphatase Lactate Dehydrogenase CK-MB (CK-2) Troponin T C-Reactive Protein Total Protein Albumin Triglycerides Cholesterol HDL Cholesterol Vitamin B12 Urine Creatinine Urine Total Protein Heparin-induced Plt Ab Hep Bs Antibody, Quant Crossmatch 12/07/16 12/07/16 12/07/16 21:35 21:35 21:58 WBC RBC Hgb Hct MCV MCHC RDW Plt Count Lymph % (Auto) [place] # Seg Neutrophils % Seg Neuts % (Manual) Lymphocytes % (Manual) Monocytes % (Manual) Nucleated RBC % Seg Neutrophils # Seg Neutrophils # Man Lymphocytes # (Manual) Monocytes # (Manual) Percent Retic Haptoglobin PT INR Fibrinogen D-Dimer POC ABG pH POC ABG pCO2 POC ABG pO2 Sodium 150 H Potassium 3.3 L D Chloride 111.4 H Carbon Dioxide 21 L D BUN 22 H Creatinine 2.6 H Glucose 23 L* POC Glucose < 40 L Lactic Acid Calcium Phosphorus Magnesium Iron TIBC Total Bilirubin 1.40 H Direct Bilirubin 0.9 H AST 94 H ALT 142 H Alkaline Phosphatase 249 H Lactate Dehydrogenase CK-MB (CK-2) Troponin T C-Reactive Protein Total Protein 4.6 L D Albumin 2.1 L Triglycerides Cholesterol HDL Cholesterol Vitamin B12 Urine Creatinine Urine Total Protein Heparin-induced Plt Ab Hep Bs Antibody, Quant Crossmatch 12/07/16 12/08/16 12/08/16 23:31 04:43 04:50 WBC RBC 2.35 L Hgb 6.6 L Hct 20.1 L MCV MCHC RDW 17.8 H Plt Count 48 L Lymph % (Auto) [place] # Seg Neutrophils % Seg Neuts % (Manual) Lymphocytes % (Manual) Monocytes % (Manual) Nucleated RBC % Seg Neutrophils # Seg Neutrophils # Man Lymphocytes # (Manual) 0.9 L Monocytes # (Manual) Percent Retic Haptoglobin PT INR Fibrinogen D-Dimer POC ABG pH 7.586 H POC ABG pCO2 17.7 L POC ABG pO2 150 H Sodium Potassium Chloride Carbon Dioxide BUN Creatinine Glucose POC Glucose 42 L Lactic Acid Calcium Phosphorus Magnesium Iron TIBC Total Bilirubin Direct Bilirubin AST ALT Alkaline Phosphatase Lactate Dehydrogenase CK-MB (CK-2) Troponin T C-Reactive Protein Total Protein Albumin Triglycerides Cholesterol HDL Cholesterol Vitamin B12 Urine Creatinine Urine Total Protein Heparin-induced Plt Ab Hep Bs Antibody, Quant Crossmatch 12/08/16 12/08/16 12/08/16 04:50 04:59 06:54 WBC RBC Hgb Hct MCV MCHC RDW Plt Count Lymph % (Auto) [place] # Seg Neutrophils % Seg Neuts % (Manual) Lymphocytes % (Manual) Monocytes % (Manual) Nucleated RBC % Seg Neutrophils # Seg Neutrophils # Man Lymphocytes # (Manual) Monocytes # (Manual) Percent Retic Haptoglobin PT INR Fibrinogen D-Dimer POC ABG pH POC ABG pCO2 POC ABG pO2 Sodium 149 H Potassium 3.2 L Chloride 111.8 H Carbon Dioxide 17 L BUN 26 H Creatinine 3.4 H Glucose 163 H POC Glucose 204 H 203 H Lactic Acid Calcium 7.7 L Phosphorus 2.40 L D Magnesium Iron TIBC Total Bilirubin Direct Bilirubin AST ALT Alkaline Phosphatase Lactate Dehydrogenase CK-MB (CK-2) Troponin T C-Reactive Protein Total Protein Albumin Triglycerides Cholesterol HDL Cholesterol Vitamin B12 Urine Creatinine Urine Total Protein Heparin-induced Plt Ab Hep Bs Antibody, Quant Crossmatch 12/08/16 12/08/16 12/08/16 08:04 08:46 08:46 WBC RBC Hgb Hct MCV MCHC RDW Plt Count Lymph % (Auto) [place] # Seg Neutrophils % Seg Neuts % (Manual) Lymphocytes % (Manual) Monocytes % (Manual) Nucleated RBC % Seg Neutrophils # Seg Neutrophils # Man Lymphocytes # (Manual) Monocytes # (Manual) Percent Retic Haptoglobin PT INR Fibrinogen D-Dimer POC ABG pH POC ABG pCO2 POC ABG pO2 Sodium 147 H Potassium 2.9 L* Chloride 110.6 H Carbon Dioxide 17 L BUN 28 H Creatinine 3.6 H Glucose 127 H POC Glucose 205 H Lactic Acid Calcium 7.3 L Phosphorus Magnesium Iron TIBC Total Bilirubin Direct Bilirubin AST ALT Alkaline Phosphatase Lactate Dehydrogenase CK-MB (CK-2) Troponin T C-Reactive Protein Total Protein Albumin Triglycerides Cholesterol HDL Cholesterol Vitamin B12 Urine Creatinine Urine Total Protein Heparin-induced Plt Ab Hep Bs Antibody, Quant Crossmatch See Detail 12/08/16 12/08/16 12/08/16 12:36 19:00 19:00 WBC RBC Hgb Hct MCV MCHC RDW Plt Count Lymph % (Auto) [place] # Seg Neutrophils % Seg Neuts % (Manual) Lymphocytes % (Manual) Monocytes % (Manual) Nucleated RBC % Seg Neutrophils # Seg Neutrophils # Man Lymphocytes # (Manual) Monocytes # (Manual) Percent Retic Haptoglobin PT 15.3 H INR 1.22 H Fibrinogen 563 H D-Dimer 5507.36 H POC ABG pH POC ABG pCO2 POC ABG pO2 Sodium Potassium Chloride Carbon Dioxide 21 L BUN Creatinine 1.7 H D Glucose 155 H POC Glucose 181 H Lactic Acid Calcium Phosphorus Magnesium Iron TIBC Total Bilirubin Direct Bilirubin AST ALT Alkaline Phosphatase Lactate Dehydrogenase CK-MB (CK-2) Troponin T C-Reactive Protein Total Protein Albumin Triglycerides Cholesterol HDL Cholesterol Vitamin B12 Urine Creatinine Urine Total Protein Heparin-induced Plt Ab Hep Bs Antibody, Quant Crossmatch 12/08/16 12/08/16 12/08/16 19:00 19:00 21:30 WBC RBC 2.76 L Hgb 7.8 L Hct 23.7 L MCV MCHC RDW 17.0 H Plt Count 38 L Lymph % (Auto) [place] # Seg Neutrophils % Seg Neuts % (Manual) Lymphocytes % (Manual) Monocytes % (Manual) Nucleated RBC % Seg Neutrophils # Seg Neutrophils # Man Lymphocytes # (Manual) Monocytes # (Manual) Percent Retic Haptoglobin 271 H PT INR Fibrinogen D-Dimer POC ABG pH POC ABG pCO2 POC ABG pO2 Sodium Potassium Chloride Carbon Dioxide BUN Creatinine Glucose POC Glucose Lactic Acid Calcium Phosphorus Magnesium Iron TIBC Total Bilirubin Direct Bilirubin AST ALT Alkaline Phosphatase Lactate Dehydrogenase 382 H CK-MB (CK-2) Troponin T C-Reactive Protein Total Protein Albumin Triglycerides Cholesterol HDL Cholesterol Vitamin B12 Urine Creatinine Urine Total Protein Heparin-induced Plt Ab Hep Bs Antibody, Quant Crossmatch 12/08/16 12/08/16 12/09/16 23:32 23:44 05:22 WBC RBC Hgb Hct MCV MCHC RDW Plt Count Lymph % (Auto) [place] # Seg Neutrophils % Seg Neuts % (Manual) Lymphocytes % (Manual) Monocytes % (Manual) Nucleated RBC % Seg Neutrophils # Seg Neutrophils # Man Lymphocytes # (Manual) Monocytes # (Manual) Percent Retic Haptoglobin PT INR Fibrinogen D-Dimer POC ABG pH 7.498 H POC ABG pCO2 25.2 L POC ABG pO2 137 H Sodium Potassium Chloride Carbon Dioxide BUN Creatinine Glucose POC Glucose 311 H 113 H Lactic Acid Calcium Phosphorus Magnesium Iron TIBC Total Bilirubin Direct Bilirubin AST ALT Alkaline Phosphatase Lactate Dehydrogenase CK-MB (CK-2) Troponin T C-Reactive Protein Total Protein Albumin Triglycerides Cholesterol HDL Cholesterol Vitamin B12 Urine Creatinine Urine Total Protein Heparin-induced Plt Ab Hep Bs Antibody, Quant Crossmatch 12/09/16 12/09/16 12/09/16 06:00 11:29 11:59 WBC RBC Hgb Hct MCV MCHC RDW Plt Count Lymph % (Auto) [place] # Seg Neutrophils % Seg Neuts % (Manual) Lymphocytes % (Manual) Monocytes % (Manual) Nucleated RBC % Seg Neutrophils # Seg Neutrophils # Man Lymphocytes # (Manual) Monocytes # (Manual) Percent Retic 0.23 L Haptoglobin PT INR Fibrinogen D-Dimer POC ABG pH POC ABG pCO2 POC ABG pO2 Sodium Potassium Chloride 110.2 H Carbon Dioxide 18 L BUN 19 H Creatinine 2.5 H Glucose 105 H POC Glucose 254 H Lactic Acid Calcium Phosphorus 2.00 L Magnesium Iron TIBC Total Bilirubin Direct Bilirubin AST ALT Alkaline Phosphatase Lactate Dehydrogenase CK-MB (CK-2) Troponin T C-Reactive Protein Total Protein Albumin Triglycerides Cholesterol HDL Cholesterol Vitamin B12 Urine Creatinine Urine Total Protein Heparin-induced Plt Ab Hep Bs Antibody, Quant Crossmatch 12/09/16 12/09/16 12/09/16 12:02 13:27 13:27 WBC RBC Hgb Hct MCV MCHC RDW Plt Count Lymph % (Auto) [place] # Seg Neutrophils % Seg Neuts % (Manual) Lymphocytes % (Manual) Monocytes % (Manual) Nucleated RBC % Seg Neutrophils # Seg Neutrophils # Man Lymphocytes # (Manual) Monocytes # (Manual) Percent Retic Haptoglobin PT INR Fibrinogen D-Dimer POC ABG pH 7.326 L POC ABG pCO2 POC ABG pO2 115 H Sodium Potassium Chloride Carbon Dioxide BUN Creatinine Glucose POC Glucose Lactic Acid Calcium Phosphorus Magnesium Iron 15 L TIBC 134 L Total Bilirubin Direct Bilirubin AST ALT Alkaline Phosphatase Lactate Dehydrogenase CK-MB (CK-2) Troponin T C-Reactive Protein Total Protein Albumin Triglycerides Cholesterol HDL Cholesterol Vitamin B12 > 2000 H Urine Creatinine Urine Total Protein Heparin-induced Plt Ab Hep Bs Antibody, Quant Crossmatch 12/09/16 12/09/16 12/09/16 13:27 13:27 16:28 WBC RBC Hgb Hct MCV MCHC RDW Plt Count Lymph % (Auto) [place] # Seg Neutrophils % Seg Neuts % (Manual) Lymphocytes % (Manual) Monocytes % (Manual) Nucleated RBC % Seg Neutrophils # Seg Neutrophils # Man Lymphocytes # (Manual) Monocytes # (Manual) Percent Retic Haptoglobin PT INR Fibrinogen D-Dimer POC ABG pH POC ABG pCO2 POC ABG pO2 Sodium Potassium Chloride Carbon Dioxide BUN Creatinine Glucose POC Glucose 199 H Lactic Acid Calcium Phosphorus Magnesium Iron TIBC Total Bilirubin Direct Bilirubin AST ALT Alkaline Phosphatase Lactate Dehydrogenase CK-MB (CK-2) Troponin T C-Reactive Protein Total Protein Albumin Triglycerides Cholesterol HDL Cholesterol Vitamin B12 Urine Creatinine Urine Total Protein Heparin-induced Plt Ab Weak positive H Hep Bs Antibody, Quant <5 L Crossmatch 12/09/16 12/09/16 12/10/16 23:27 Unknown 05:36 WBC 11.3 H RBC 2.92 L Hgb 8.4 L Hct 25.3 L MCV MCHC RDW 16.9 H Plt Count 31 L Lymph % (Auto) [place] # Seg Neutrophils % Seg Neuts % (Manual) Lymphocytes % (Manual) Monocytes % (Manual) Nucleated RBC % Seg Neutrophils # Seg Neutrophils # Man Lymphocytes # (Manual) Monocytes # (Manual) Percent Retic Haptoglobin PT INR Fibrinogen D-Dimer POC ABG pH POC ABG pCO2 POC ABG pO2 Sodium Potassium Chloride Carbon Dioxide BUN Creatinine Glucose POC Glucose 247 H 248 H Lactic Acid Calcium Phosphorus Magnesium Iron TIBC Total Bilirubin Direct Bilirubin AST ALT Alkaline Phosphatase Lactate Dehydrogenase CK-MB (CK-2) Troponin T C-Reactive Protein Total Protein Albumin Triglycerides Cholesterol HDL Cholesterol Vitamin B12 Urine Creatinine Urine Total Protein Heparin-induced Plt Ab Hep Bs Antibody, Quant Crossmatch 12/10/16 12/10/16 12/10/16 09:55 09:55 11:49 WBC 21.2 H RBC 3.37 L Hgb 9.6 L Hct 29.5 L MCV MCHC RDW 16.3 H Plt Count 102 L D Lymph % (Auto) [place] # Seg Neutrophils % Seg Neuts % (Manual) Lymphocytes % (Manual) Monocytes % (Manual) Nucleated RBC % Seg Neutrophils # Seg Neutrophils # Man Lymphocytes # (Manual) Monocytes # (Manual) Percent Retic Haptoglobin PT INR Fibrinogen D-Dimer POC ABG pH POC ABG pCO2 POC ABG pO2 Sodium Potassium Chloride 107.4 H Carbon Dioxide 21 L BUN 37 H Creatinine 4.2 H D Glucose 174 H POC Glucose 265 H Lactic Acid Calcium Phosphorus Magnesium Iron TIBC Total Bilirubin Direct Bilirubin AST ALT Alkaline Phosphatase Lactate Dehydrogenase CK-MB (CK-2) Troponin T C-Reactive Protein Total Protein Albumin Triglycerides Cholesterol HDL Cholesterol Vitamin B12 Urine Creatinine Urine Total Protein Heparin-induced Plt Ab Hep Bs Antibody, Quant Crossmatch 12/10/16 12/10/16 12/11/16 17:56 23:44 04:30 WBC 23.5 H RBC 3.46 L Hgb 9.7 L Hct 30.1 L MCV MCHC RDW 16.4 H Plt Count 115 L Lymph % (Auto) [place] # Seg Neutrophils % Seg Neuts % (Manual) 84.0 H Lymphocytes % (Manual) 5.0 L Monocytes % (Manual) 10.0 H Nucleated RBC % 1.0 H Seg Neutrophils # Seg Neutrophils # Man 19.7 H Lymphocytes # (Manual) Monocytes # (Manual) 2.4 H Percent Retic Haptoglobin PT INR Fibrinogen D-Dimer POC ABG pH POC ABG pCO2 POC ABG pO2 Sodium Potassium Chloride Carbon Dioxide BUN Creatinine Glucose POC Glucose 118 H 378 H Lactic Acid Calcium Phosphorus Magnesium Iron TIBC Total Bilirubin Direct Bilirubin AST ALT Alkaline Phosphatase Lactate Dehydrogenase CK-MB (CK-2) Troponin T C-Reactive Protein Total Protein Albumin Triglycerides Cholesterol HDL Cholesterol Vitamin B12 Urine Creatinine Urine Total Protein Heparin-induced Plt Ab Hep Bs Antibody, Quant Crossmatch 12/11/16 12/11/16 12/11/16 04:30 05:33 12:48 WBC RBC Hgb Hct MCV MCHC RDW Plt Count Lymph % (Auto) [place] # Seg Neutrophils % Seg Neuts % (Manual) Lymphocytes % (Manual) Monocytes % (Manual) Nucleated RBC % Seg Neutrophils # Seg Neutrophils # Man Lymphocytes # (Manual) Monocytes # (Manual) Percent Retic Haptoglobin PT INR Fibrinogen D-Dimer POC ABG pH POC ABG pCO2 POC ABG pO2 Sodium Potassium Chloride Carbon Dioxide 21 L BUN 50 H Creatinine 4.8 H Glucose 303 H POC Glucose 335 H 325 H Lactic Acid Calcium 8.2 L Phosphorus Magnesium Iron TIBC Total Bilirubin Direct Bilirubin AST ALT Alkaline Phosphatase Lactate Dehydrogenase CK-MB (CK-2) Troponin T C-Reactive Protein Total Protein Albumin Triglycerides Cholesterol HDL Cholesterol Vitamin B12 Urine Creatinine Urine Total Protein Heparin-induced Plt Ab Hep Bs Antibody, Quant Crossmatch 12/11/16 12/11/16 12/12/16 17:49 21:16 00:49 WBC RBC Hgb Hct MCV MCHC RDW Plt Count Lymph % (Auto) [place] # Seg Neutrophils % Seg Neuts % (Manual) Lymphocytes % (Manual) Monocytes % (Manual) Nucleated RBC % Seg Neutrophils # Seg Neutrophils # Man Lymphocytes # (Manual) Monocytes # (Manual) Percent Retic Haptoglobin PT INR Fibrinogen D-Dimer POC ABG pH POC ABG pCO2 POC ABG pO2 Sodium Potassium Chloride Carbon Dioxide BUN Creatinine Glucose POC Glucose 368 H 162 H 225 H Lactic Acid Calcium Phosphorus Magnesium Iron TIBC Total Bilirubin Direct Bilirubin AST ALT Alkaline Phosphatase Lactate Dehydrogenase CK-MB (CK-2) Troponin T C-Reactive Protein Total Protein Albumin Triglycerides Cholesterol HDL Cholesterol Vitamin B12 Urine Creatinine Urine Total Protein Heparin-induced Plt Ab Hep Bs Antibody, Quant Crossmatch 12/12/16 12/12/16 12/12/16 06:09 07:52 08:18 WBC 24.1 H RBC 3.16 L Hgb 9.0 L Hct 29.4 L MCV MCHC RDW 16.6 H Plt Count 96 L Lymph % (Auto) [place] # Seg Neutrophils % Seg Neuts % (Manual) 75.0 H Lymphocytes % (Manual) Monocytes % (Manual) Nucleated RBC % Seg Neutrophils # Seg Neutrophils # Man 18.1 H Lymphocytes # (Manual) Monocytes # (Manual) 1.4 H Percent Retic Haptoglobin PT INR Fibrinogen D-Dimer POC ABG pH POC ABG pCO2 POC ABG pO2 Sodium Potassium Chloride Carbon Dioxide BUN Creatinine Glucose POC Glucose 428 H 418 H Lactic Acid Calcium Phosphorus Magnesium Iron TIBC Total Bilirubin Direct Bilirubin AST ALT Alkaline Phosphatase Lactate Dehydrogenase CK-MB (CK-2) Troponin T C-Reactive Protein Total Protein Albumin Triglycerides Cholesterol HDL Cholesterol Vitamin B12 Urine Creatinine Urine Total Protein Heparin-induced Plt Ab Hep Bs Antibody, Quant Crossmatch 12/12/16 12/12/16 12/12/16 08:18 11:31 17:03 WBC RBC Hgb Hct MCV MCHC RDW Plt Count Lymph % (Auto) [place] # Seg Neutrophils % Seg Neuts % (Manual) Lymphocytes % (Manual) Monocytes % (Manual) Nucleated RBC % Seg Neutrophils # Seg Neutrophils # Man Lymphocytes # (Manual) Monocytes # (Manual) Percent Retic Haptoglobin PT INR Fibrinogen D-Dimer POC ABG pH POC ABG pCO2 POC ABG pO2 Sodium Potassium Chloride Carbon Dioxide 12 L D BUN 41 H Creatinine 4.5 H Glucose 369 H POC Glucose 212 H 422 H Lactic Acid Calcium Phosphorus Magnesium Iron TIBC Total Bilirubin Direct Bilirubin AST ALT Alkaline Phosphatase Lactate Dehydrogenase CK-MB (CK-2) Troponin T C-Reactive Protein Total Protein Albumin Triglycerides Cholesterol HDL Cholesterol Vitamin B12 Urine Creatinine Urine Total Protein Heparin-induced Plt Ab Hep Bs Antibody, Quant Crossmatch 12/12/16 12/13/16 12/13/16 21:35 07:49 07:49 WBC 24.0 H RBC 2.90 L Hgb 8.3 L Hct 25.8 L MCV MCHC RDW 15.5 H Plt Count 120 L Lymph % (Auto) [place] # Seg Neutrophils % Seg Neuts % (Manual) 89.0 H Lymphocytes % (Manual) 7.0 L Monocytes % (Manual) Nucleated RBC % Seg Neutrophils # Seg Neutrophils # Man 21.4 H Lymphocytes # (Manual) Monocytes # (Manual) Percent Retic Haptoglobin PT INR Fibrinogen D-Dimer POC ABG pH POC ABG pCO2 POC ABG pO2 Sodium Potassium 3.2 L Chloride Carbon Dioxide BUN 21 H Creatinine 3.0 H Glucose 21 L* POC Glucose 185 H Lactic Acid Calcium Phosphorus Magnesium Iron TIBC Total Bilirubin Direct Bilirubin AST ALT Alkaline Phosphatase Lactate Dehydrogenase CK-MB (CK-2) Troponin T C-Reactive Protein Total Protein Albumin Triglycerides Cholesterol HDL Cholesterol Vitamin B12 Urine Creatinine Urine Total Protein Heparin-induced Plt Ab Hep Bs Antibody, Quant Crossmatch 12/13/16 12/13/16 12/13/16 09:57 11:02 16:52 WBC RBC Hgb Hct MCV MCHC RDW Plt Count Lymph % (Auto) [place] # Seg Neutrophils % Seg Neuts % (Manual) Lymphocytes % (Manual) Monocytes % (Manual) Nucleated RBC % Seg Neutrophils # Seg Neutrophils # Man Lymphocytes # (Manual) Monocytes # (Manual) Percent Retic Haptoglobin PT INR Fibrinogen D-Dimer POC ABG pH POC ABG pCO2 POC ABG pO2 Sodium Potassium Chloride Carbon Dioxide BUN Creatinine Glucose POC Glucose < 40 L 231 H 312 H Lactic Acid Calcium Phosphorus Magnesium Iron TIBC Total Bilirubin Direct Bilirubin AST ALT Alkaline Phosphatase Lactate Dehydrogenase CK-MB (CK-2) Troponin T C-Reactive Protein Total Protein Albumin Triglycerides Cholesterol HDL Cholesterol Vitamin B12 Urine Creatinine Urine Total Protein Heparin-induced Plt Ab Hep Bs Antibody, Quant Crossmatch 12/13/16 12/14/16 12/14/16 21:32 07:07 07:07 WBC 16.7 H RBC 2.80 L Hgb 7.9 L Hct 24.7 L MCV MCHC RDW 15.4 H Plt Count 131 L Lymph % (Auto) 13.1 L [place] # 1.2 H Seg Neutrophils % 78.3 H Seg Neuts % (Manual) Lymphocytes % (Manual) Monocytes % (Manual) Nucleated RBC % Seg Neutrophils # 13.1 H Seg Neutrophils # Man Lymphocytes # (Manual) Monocytes # (Manual) Percent Retic Haptoglobin PT INR Fibrinogen D-Dimer POC ABG pH POC ABG pCO2 POC ABG pO2 Sodium Potassium 3.5 L Chloride Carbon Dioxide BUN 30 H Creatinine 4.6 H D Glucose 181 H POC Glucose 275 H Lactic Acid Calcium 7.7 L Phosphorus Magnesium Iron TIBC Total Bilirubin Direct Bilirubin AST ALT Alkaline Phosphatase Lactate Dehydrogenase CK-MB (CK-2) Troponin T C-Reactive Protein Total Protein Albumin Triglycerides Cholesterol HDL Cholesterol Vitamin B12 Urine Creatinine Urine Total Protein Heparin-induced Plt Ab Hep Bs Antibody, Quant Crossmatch 12/14/16 12/14/16 12/14/16 07:46 11:35 16:24 WBC RBC Hgb Hct MCV MCHC RDW Plt Count Lymph % (Auto) [place] # Seg Neutrophils % Seg Neuts % (Manual) Lymphocytes % (Manual) Monocytes % (Manual) Nucleated RBC % Seg Neutrophils # Seg Neutrophils # Man Lymphocytes # (Manual) Monocytes # (Manual) Percent Retic Haptoglobin PT INR Fibrinogen D-Dimer POC ABG pH POC ABG pCO2 POC ABG pO2 Sodium Potassium Chloride Carbon Dioxide BUN Creatinine Glucose POC Glucose 189 H 254 H 466 H Lactic Acid Calcium Phosphorus Magnesium Iron TIBC Total Bilirubin Direct Bilirubin AST ALT Alkaline Phosphatase Lactate Dehydrogenase CK-MB (CK-2) Troponin T C-Reactive Protein Total Protein Albumin Triglycerides Cholesterol HDL Cholesterol Vitamin B12 Urine Creatinine Urine Total Protein Heparin-induced Plt Ab Hep Bs Antibody, Quant Crossmatch 12/14/16 12/15/16 12/15/16 20:57 06:27 07:46 WBC RBC Hgb Hct MCV MCHC RDW Plt Count Lymph % (Auto) [place] # Seg Neutrophils % Seg Neuts % (Manual) Lymphocytes % (Manual) Monocytes % (Manual) Nucleated RBC % Seg Neutrophils # Seg Neutrophils # Man Lymphocytes # (Manual) Monocytes # (Manual) Percent Retic Haptoglobin PT INR Fibrinogen D-Dimer POC ABG pH POC ABG pCO2 POC ABG pO2 Sodium Potassium Chloride Carbon Dioxide BUN Creatinine Glucose POC Glucose 301 H 183 H 231 H Lactic Acid Calcium Phosphorus Magnesium Iron TIBC Total Bilirubin Direct Bilirubin AST ALT Alkaline Phosphatase Lactate Dehydrogenase CK-MB (CK-2) Troponin T C-Reactive Protein Total Protein Albumin Triglycerides Cholesterol HDL Cholesterol Vitamin B12 Urine Creatinine Urine Total Protein Heparin-induced Plt Ab Hep Bs Antibody, Quant Crossmatch 12/15/16 12/15/16 12/15/16 11:38 15:34 20:51 WBC RBC Hgb Hct MCV MCHC RDW Plt Count Lymph % (Auto) [place] # Seg Neutrophils % Seg Neuts % (Manual) Lymphocytes % (Manual) Monocytes % (Manual) Nucleated RBC % Seg Neutrophils # Seg Neutrophils # Man Lymphocytes # (Manual) Monocytes # (Manual) Percent Retic Haptoglobin PT INR Fibrinogen D-Dimer POC ABG pH POC ABG pCO2 POC ABG pO2 Sodium Potassium Chloride Carbon Dioxide BUN Creatinine Glucose POC Glucose 375 H 313 H 274 H Lactic Acid Calcium Phosphorus Magnesium Iron TIBC Total Bilirubin Direct Bilirubin AST ALT Alkaline Phosphatase Lactate Dehydrogenase CK-MB (CK-2) Troponin T C-Reactive Protein Total Protein Albumin Triglycerides Cholesterol HDL Cholesterol Vitamin B12 Urine Creatinine Urine Total Protein Heparin-induced Plt Ab Hep Bs Antibody, Quant Crossmatch 12/16/16 12/16/16 12/16/16 08:26 09:12 17:13 WBC RBC Hgb Hct MCV MCHC RDW Plt Count Lymph % (Auto) [place] # Seg Neutrophils % Seg Neuts % (Manual) Lymphocytes % (Manual) Monocytes % (Manual) Nucleated RBC % Seg Neutrophils # Seg Neutrophils # Man Lymphocytes # (Manual) Monocytes # (Manual) Percent Retic Haptoglobin PT INR Fibrinogen D-Dimer POC ABG pH POC ABG pCO2 POC ABG pO2 Sodium Potassium Chloride Carbon Dioxide BUN Creatinine Glucose POC Glucose 59 L 127 H > 500 H Lactic Acid Calcium Phosphorus Magnesium Iron TIBC Total Bilirubin Direct Bilirubin AST ALT Alkaline Phosphatase Lactate Dehydrogenase CK-MB (CK-2) Troponin T C-Reactive Protein Total Protein Albumin Triglycerides Cholesterol HDL Cholesterol Vitamin B12 Urine Creatinine Urine Total Protein Heparin-induced Plt Ab Hep Bs Antibody, Quant Crossmatch 12/16/16 12/16/16 12/16/16 22:59 Unknown Unknown WBC 17.2 H RBC 2.83 L Hgb 7.9 L Hct 24.4 L MCV MCHC RDW Plt Count Lymph % (Auto) 9.2 L [place] # 0.9 H Seg Neutrophils % 84.1 H Seg Neuts % (Manual) Lymphocytes % (Manual) Monocytes % (Manual) Nucleated RBC % Seg Neutrophils # 14.5 H Seg Neutrophils # Man Lymphocytes # (Manual) Monocytes # (Manual) Percent Retic Haptoglobin PT INR Fibrinogen D-Dimer POC ABG pH POC ABG pCO2 POC ABG pO2 Sodium Potassium Chloride Carbon Dioxide BUN 43 H Creatinine 5.4 H Glucose 131 H POC Glucose 320 H Lactic Acid Calcium 6.9 L Phosphorus Magnesium Iron TIBC Total Bilirubin Direct Bilirubin AST ALT Alkaline Phosphatase Lactate Dehydrogenase CK-MB (CK-2) Troponin T C-Reactive Protein Total Protein Albumin Triglycerides Cholesterol HDL Cholesterol Vitamin B12 Urine Creatinine Urine Total Protein Heparin-induced Plt Ab Hep Bs Antibody, Quant Crossmatch 12/17/16 12/17/16 12/17/16 08:26 08:56 09:52 WBC RBC Hgb Hct MCV MCHC RDW Plt Count Lymph % (Auto) [place] # Seg Neutrophils % Seg Neuts % (Manual) Lymphocytes % (Manual) Monocytes % (Manual) Nucleated RBC % Seg Neutrophils # Seg Neutrophils # Man Lymphocytes # (Manual) Monocytes # (Manual) Percent Retic Haptoglobin PT INR Fibrinogen D-Dimer POC ABG pH POC ABG pCO2 POC ABG pO2 Sodium Potassium Chloride Carbon Dioxide BUN Creatinine Glucose POC Glucose < 40 L 40 L 133 H Lactic Acid Calcium Phosphorus Magnesium Iron TIBC Total Bilirubin Direct Bilirubin AST ALT Alkaline Phosphatase Lactate Dehydrogenase CK-MB (CK-2) Troponin T C-Reactive Protein Total Protein Albumin Triglycerides Cholesterol HDL Cholesterol Vitamin B12 Urine Creatinine Urine Total Protein Heparin-induced Plt Ab Hep Bs Antibody, Quant Crossmatch 12/17/16 12/17/16 Unknown Unknown WBC 16.6 H RBC 2.63 L Hgb 7.5 L Hct 23.3 L MCV MCHC RDW 15.3 H Plt Count Lymph % (Auto) 7.7 L [place] # Seg Neutrophils % 85.8 H Seg Neuts % (Manual) Lymphocytes % (Manual) Monocytes % (Manual) Nucleated RBC % Seg Neutrophils # 14.3 H Seg Neutrophils # Man Lymphocytes # (Manual) Monocytes # (Manual) Percent Retic Haptoglobin PT INR Fibrinogen D-Dimer POC ABG pH POC ABG pCO2 POC ABG pO2 Sodium Potassium 3.5 L Chloride Carbon Dioxide BUN 47 H Creatinine 5.2 H Glucose 173 H POC Glucose Lactic Acid Calcium 6.9 L Phosphorus Magnesium Iron TIBC Total Bilirubin Direct Bilirubin AST ALT Alkaline Phosphatase Lactate Dehydrogenase CK-MB (CK-2) Troponin T C-Reactive Protein Total Protein Albumin Triglycerides Cholesterol HDL Cholesterol Vitamin B12 Urine Creatinine Urine Total Protein Heparin-induced Plt Ab Hep Bs Antibody, Quant Crossmatch
--- NOTE | 2016-12-17 12:17 | Event Note ---
Date: 12/17/16 Patient was hypoglycemic and had orange juice this AM. Patient will have permcath placed later today.
[2016-12-17] MEDS: LOPRESSOR PO SCH ×2 (15:33→21:26)
[2016-12-17] MEDS: PEPCID PO SCH (15:34)
--- NOTE | 2016-12-17 17:35 | Progress Note ---
Assessment and Plan Assessment and plan: Cardiac arrest with V. fib - Likely from hyperkalemia, currently patient is stable - Was treated with amiodarone ARF, ATN - Nephrology is following, she is going to continue hemodialysis Acute hypoxic respiratory failure extubated - Pulmonary is following Cardiac arrest was STEMI - Cardiology is following - Resolved DKA: - Status post insulin drip - On sliding and basal insulin Metabolic Acidosis - On bicarbonate - resolved Acute metabolic encephalopathy - resolved Leukocytosis +GNR in trach aspirate, pseudomonas aeruginosa - On levaquin and Flagyl - ID is following -DVT prophylaxis: SCDs only due to recent SAH Thrombocytopenia - Patient is morning was 225 Acute on chronic anemia of chronic disease s/p 2 unit of prbc, monitoring closely - Hemoglobin is 7.9 Depression - Psych consult placed History Interval history: Patient was seen and evaluated this morning, patient has hypoglycemia episode. Hospitalist Physical - Physical exam Narrative exam: Not in cardiopulmonary distress. The patient appeared well nourished and normally developed. Vital signs as documented. Head exam is unremarkable. No scleral icterus . Neck is without jugular venous distension, thyromegaly, or carotid bruits. Lungs are clear to auscultation. Cardiac exam reveals regular rate and Rhythm. First and second heart sounds normal. No murmurs, rubs or gallops. Abdominal exam reveals normal bowel sounds, no masses, no organomegaly and no aortic enlargement. Extremities are nonedematous and both femoral and pedal pulses are normal. [employer]: Alert and oriented 3. No focal weakness. - Constitutional Vitals: Temp Pulse Resp BP Pulse Ox 98.4 F 114 H 18 146/76 96 12/17/16 08:24 12/17/16 14:20 12/17/16 08:24 12/17/16 08:24 12/17/16 10:00 General appearance: Present: no acute distress (resting comfortably) Results - Labs CBC & Chem 7: 12/17/16 Unknown 12/17/16 Unknown Labs: Laboratory Last Values WBC 16.6 K/mm3 (4.5-11.0) H 12/17/16 Unknown RBC 2.63 M/mm3 (3.65-5.03) L 12/17/16 Unknown Hgb 7.5 gm/dl (10.1-14.3) L 12/17/16 Unknown Hct 23.3 % (30.3-42.9) L 12/17/16 Unknown MCV 89 fl (79-97) 12/17/16 Unknown MCH 29 pg (28-32) 12/17/16 Unknown MCHC 32 % (30-34) 12/17/16 Unknown RDW 15.3 % (13.2-15.2) H 12/17/16 Unknown Plt Count 253 K/mm3 (140-440) 12/17/16 Unknown Lymph % (Auto) 7.7 % (13.4-35.0) L 12/17/16 Unknown [place] % (Auto) 5.0 % (0.0-7.3) 12/17/16 Unknown Eos % (Auto) 0.9 % (0.0-4.3) 12/17/16 Unknown Baso % (Auto) 0.6 % (0.0-1.8) 12/17/16 Unknown Lymph # 1.3 K/mm3 (1.2-5.4) 12/17/16 Unknown [place] # 0.8 K/mm3 (0.0-0.8) 12/17/16 Unknown Eos # 0.1 K/mm3 (0.0-0.4) 12/17/16 Unknown Baso # 0.1 K/mm3 (0.0-0.1) 12/17/16 Unknown Add Manual Diff Complete 12/13/16 07:49 Total Counted 100 12/13/16 07:49 Seg Neutrophils % 85.8 % (40.0-70.0) H 12/17/16 Unknown Seg Neuts % (Manual) 89.0 % (40.0-70.0) H 12/13/16 07:49 Band Neutrophils % 1.0 % 12/13/16 07:49 Lymphocytes % (Manual) 7.0 % (13.4-35.0) L 12/13/16 07:49 Reactive Lymphs % (Man) 0 % 12/13/16 07:49 Monocytes % (Manual) 3.0 % (0.0-7.3) 12/13/16 07:49 Eosinophils % (Manual) 0 % (0.0-4.3) 12/13/16 07:49 Basophils % (Manual) 0 % (0.0-1.8) 12/13/16 07:49 Metamyelocytes % 0 % 12/13/16 07:49 Myelocytes % 0 % 12/13/16 07:49 Promyelocytes % 0 % 12/13/16 07:49 Blast Cells % 0 % 12/13/16 07:49 Nucleated RBC % Not Reportable 12/13/16 07:49 Seg Neutrophils # 14.3 K/mm3 (1.8-7.7) H 12/17/16 Unknown Seg Neutrophils # Man 21.4 K/mm3 (1.8-7.7) H 12/13/16 07:49 Band Neutrophils # 0.2 K/mm3 12/13/16 07:49 Lymphocytes # (Manual) 1.7 K/mm3 (1.2-5.4) 12/13/16 07:49 Abs React Lymphs (Man) 0.0 K/mm3 12/13/16 07:49 Monocytes # (Manual) 0.7 K/mm3 (0.0-0.8) 12/13/16 07:49 Eosinophils # (Manual) 0.0 K/mm3 (0.0-0.4) 12/13/16 07:49 Basophils # (Manual) 0.0 K/mm3 (0.0-0.1) 12/13/16 07:49 Metamyelocytes # 0.0 K/mm3 12/13/16 07:49 Myelocytes # 0.0 K/mm3 12/13/16 07:49 Promyelocytes # 0.0 K/mm3 12/13/16 07:49 Blast Cells # 0.0 K/mm3 12/13/16 07:49 WBC Morphology Not Reportable 12/13/16 07:49 Hypersegmented Neuts Not Reportable 12/13/16 07:49 Hyposegmented Neuts Not Reportable 12/13/16 07:49 Hypogranular Neuts Not Reportable 12/13/16 07:49 Smudge Cells Not Reportable 12/13/16 07:49 Toxic Granulation Not Reportable 12/13/16 07:49 Toxic Vacuolation Not Reportable 12/13/16 07:49 Dohle Bodies Not Reportable 12/13/16 07:49 Pelger-Huet Anomaly Not Reportable 12/13/16 07:49 Mary Rods Not Reportable 12/13/16 07:49 Platelet Estimate Cons 12/13/16 07:49 Clumped Platelets Not Reportable 12/13/16 07:49 Plt Clumps, EDTA Not Reportable 12/13/16 07:49 Large Platelets Rare 12/13/16 07:49 Giant Platelets Not Reportable 12/13/16 07:49 Platelet Satelliting Not Reportable 12/13/16 07:49 Plt Morphology Comment Not Reportable 12/13/16 07:49 RBC Morphology Not Reportable 12/13/16 07:49 Dimorphic RBCs Not Reportable 12/13/16 07:49 Polychromasia Not Reportable 12/13/16 07:49 Hypochromasia 1+ 12/13/16 07:49 Poikilocytosis Not Reportable 12/13/16 07:49 Anisocytosis 1+ 12/13/16 07:49 Microcytosis Not Reportable 12/13/16 07:49 Macrocytosis Not Reportable 12/13/16 07:49 Spherocytes Not Reportable 12/13/16 07:49 Pappenheimer Bodies Not Reportable 12/13/16 07:49 Sickle Cells Not Reportable 12/13/16 07:49 Target Cells Few 12/13/16 07:49 Tear Drop Cells Not Reportable 12/13/16 07:49 Ovalocytes Not Reportable 12/13/16 07:49 Helmet Cells Not Reportable 12/13/16 07:49 [place] Bodies Not Reportable 12/13/16 07:49 [place] Rings Not Reportable 12/13/16 07:49 [place] Cells Not Reportable 12/13/16 07:49 Bite Cells Not Reportable 12/13/16 07:49 Crenated Cell Not Reportable 12/13/16 07:49 Elliptocytes Not Reportable 12/13/16 07:49 Acanthocytes (Spur) Not Reportable 12/13/16 07:49 Rouleaux Not Reportable 12/13/16 07:49 Hemoglobin C Crystals Not Reportable 12/13/16 07:49 Schistocytes Not Reportable 12/13/16 07:49 Malaria parasites Not Reportable 12/13/16 07:49 Percent Retic 0.23 % (0.78-2.58) L 12/09/16 11:29 Michael Bodies Not Reportable 12/13/16 07:49 Haptoglobin 271 mg/dL (43-212) H 12/08/16 21:30 Hem Pathologist Commnt No 12/13/16 07:49 PT 15.3 Sec. (12.2-14.9) H 12/08/16 19:00 INR 1.22 (0.87-1.13) H 12/08/16 19:00 APTT 36.2 Sec. (24.2-36.6) 12/08/16 19:00 Fibrinogen 563 mg/dl (211-480) H 12/08/16 19:00 D-Dimer 5507.36 ng/mlDDU (0-234) H 12/08/16 19:00 Heparin Anti-Xa, Unfract Negative (Negative) 12/09/16 13:27 POC ABG pH 7.326 (7.35-7.45) L 12/09/16 12:02 POC ABG pCO2 37.7 (35-45) 12/09/16 12:02 POC ABG pO2 115 (80-105) H 12/09/16 12:02 POC ABG HCO3 19.7 12/09/16 12:02 POC ABG Total CO2 21 12/09/16 12:02 POC ABG O2 Sat 98 12/09/16 12:02 POC ABG Base Excess -6 12/09/16 12:02 FiO2 30 % 12/09/16 12:02 Sodium 142 mmol/L (137-145) 12/17/16 Unknown Potassium 3.5 mmol/L (3.6-5.0) L 12/17/16 Unknown Chloride 104.5 mmol/L (98-107) 12/17/16 Unknown Carbon Dioxide 23 mmol/L (22-30) 12/17/16 Unknown Anion Gap 18 mmol/L 12/17/16 Unknown BUN 47 mg/dL (7-17) H 12/17/16 Unknown Creatinine 5.2 mg/dL (0.7-1.2) H 12/17/16 Unknown Estimated GFR 11 ml/min 12/17/16 Unknown BUN/Creatinine Ratio 9.03 % 12/17/16 Unknown Glucose 173 mg/dL (65-100) H 12/17/16 Unknown POC Glucose 303 (70-105) H 12/17/16 16:08 Lactic Acid 6.90 mmol/L (0.7-2.0) H* 12/07/16 07:30 Calcium 6.9 mg/dL (8.4-10.2) L 12/17/16 Unknown Phosphorus 3.90 mg/dL (2.5-4.5) 12/17/16 Unknown Magnesium 1.90 mg/dL (1.7-2.3) 12/11/16 04:30 Iron 15 ug/dL (37-170) L 12/09/16 13:27 TIBC 134 mcg/dL (250-450) L 12/09/16 13:27 Ferritin 360.1 ng/mL (13.0-400.0) 12/09/16 13:27 Total Bilirubin 1.40 mg/dL (0.1-1.2) H 12/07/16 21:35 Direct Bilirubin 0.9 mg/dL (0-0.2) H 12/07/16 21:35 Indirect Bilirubin 0.5 mg/dL 12/07/16 21:35 AST 94 units/L (5-40) H 12/07/16 21:35 ALT 142 units/L (7-56) H 12/07/16 21:35 Alkaline Phosphatase 249 units/L (35-129) H 12/07/16 21:35 Lactate Dehydrogenase 382 units/L (91-180) H 12/08/16 19:00 Total Creatine Kinase 123 units/L (30-135) 12/04/16 09:55 CK-MB (CK-2) 4.6 ng/mL (0.0-4.0) H 12/04/16 09:55 CK-MB (CK-2) Rel Index 3.7 (0-4) 12/04/16 09:55 Troponin T 0.140 ng/mL (0.00-0.029) H* D 12/04/16 09:55 C-Reactive Protein 39.40 mg/dL (0.00-1.30) H 12/07/16 06:00 Total Protein 4.6 g/dL (6.3-8.2) L D 12/07/16 21:35 Albumin 2.1 g/dL (3.9-5) L 12/07/16 21:35 Albumin/Globulin Ratio 0.8 % 12/07/16 21:35 Triglycerides 570 mg/dL (2-149) H 12/04/16 07:55 Cholesterol 221 mg/dL (50-199) H 12/04/16 07:55 LDL Cholesterol Direct TNR 12/04/16 07:55 HDL Cholesterol 37 mg/dL (40-59) L 12/04/16 07:55 Cholesterol/HDL Ratio 5.97 % 12/04/16 07:55 Vitamin B12 > 2000 pg/mL (211-911) H 12/09/16 13:27 Folate 8.10 ng/mL (7.3-26.0) 12/09/16 13:27 TSH 1.600 mlU/mL (0.270-4.200) 12/03/16 23:20 Urine Color Yellow (Yellow) 12/04/16 11:25 Urine Turbidity Slightly-cloudy (Clear) 12/04/16 11:25 Urine pH 5.0 (5.0-7.0) 12/04/16 11:25 Ur Specific [place] 1.018 (1.003-1.030) 12/04/16 11:25 Urine Protein 30 mg/dl mg/dL (Negative) 12/04/16 11:25 Urine Glucose (UA) >=500 mg/dL (Negative) 12/04/16 11:25 Urine Ketones Tr mg/dL (Negative) 12/04/16 11:25 Urine Blood Sm (Negative) 12/04/16 11:25 Urine Nitrite Neg (Negative) 12/04/16 11:25 Urine Bilirubin Neg (Negative) 12/04/16 11:25 Urine Urobilinogen < 2.0 mg/dL (<2.0) 12/04/16 11:25 Ur Leukocyte Esterase Neg (Negative) 12/04/16 11:25 Urine WBC (Auto) 4.0 /HPF (0.0-6.0) 12/04/16 11:25 Urine RBC (Auto) 2.0 /HPF (0.0-6.0) 12/04/16 11:25 U Epithel Cells (Auto) < 1.0 /HPF (0-13.0) 12/04/16 11:25 Urine Mucus Few /HPF 12/04/16 11:25 Urine Osmolality 419 Mosm/kg 12/04/16 11:25 Urine Creatinine 29.5 mg/dL (0.1-20.0) H 12/04/16 11:25 Protein/Creatinin Ratio 1.12 12/04/16 11:25 Urine Sodium 26 mEq/L 12/04/16 11:25 Urine Total Protein 33 mg/dL (5-11.8) H 12/04/16 11:25 Urine Opiates Screen Presumptive negative 12/04/16 11:25 Urine Methadone Screen Presumptive negative 12/04/16 11:25 Ur Barbiturates Screen Presumptive negative 12/04/16 11:25 Ur Phencyclidine Scrn Presumptive negative 12/04/16 11:25 Ur Amphetamines Screen Presumptive negative 12/04/16 11:25 U Benzodiazepines Scrn Presumptive negative 12/04/16 11:25 Urine Cocaine Screen Presumptive negative 12/04/16 11:25 U Marijuana (THC) Screen Presumptive positive 12/04/16 11:25 Drugs of Abuse Note Disclamer 12/04/16 11:25 Heparin-induced Plt Ab Weak positive (Negative) H 12/09/16 13:27 UF Heparin High Dose 0 % Release 12/09/16 13:27 ADRIENNE UFH Low Dose 0.1 0 % Release 12/09/16 13:27 ADRIENNE UFH Low Dose 0.5 0 % Release 12/09/16 13:27 Hep Bs Antigen Non-reactive (Negative) 12/09/16 13:27 Hep Bs Antibody, Quant <5 mIU/mL (>=10) L 12/09/16 13:27 Hep B Core Total Ab Nonreactive (Nonreactive) 12/09/16 13:27 Hepatitis C Antibody Non-reactive (NonReactive) 12/09/16 13:27 HIV 1&2 Antibody Rapid Non react (Non React) 12/09/16 13:27 HIV P24 Antigen Non react (Non React) 12/09/16 13:27 Schistocytes Smear None seen 12/09/16 11:29 Blood Type O POSITIVE 12/08/16 08:46 Antibody Screen TNR 12/08/16 08:46 ISAIAH Antibody Screen Negative 12/08/16 08:46 Crossmatch See Detail 12/08/16 08:46
[2016-12-17] MEDS ORDERED: HEPARIN 10,000 UNITS/10 ML ONE (17:50)
[2016-12-17] MEDS ORDERED: HEPARIN/NS 5000 UNIT/500ML(CATH LAB) 500 ML IR ONE (17:50)
[2016-12-17] MEDS ORDERED: XYLOCAINE 1%/ EPI 1:100,000 INFILTRATI ONE (17:51)
[2016-12-17] MEDS ORDERED: ANCEF/STERILE WATER 2 GM/20 ML 2 GM/20 ML SYRINGE IV ONE (17:51)
[2016-12-17] MEDS ORDERED: NACL 0.9% 250ML 250 ML ONE (17:51)
[2016-12-17] MEDS: SUBLIMAZE ONE ×2 (18:00→18:15)
[2016-12-17] MEDS: VERSED ONE ×2 (18:00→18:15)
--- NOTE | 2016-12-17 18:36 | Operative Report ---
Operative Report Operative Report: Procedure: 1. Right IJ tunneled dialysis catheter placement 2. Ultrasound guided puncture of the right IJ vein. Date: 12/17/2016 Physician: Javier Muñoz MD Indication: 46 year old female with end stage renal disease, in need of dialysis. Technique: The patient was placed in the supine position and prepped and draped in the usual sterile fashion. A timeout was performed. Local anesthetic was administered. Under direct ultrasound guidance, the right IJ vein was accessed with a 21-gauge needle. This was exchanged over a manual wire for a 4 [place] exchanged dilator. Via the exchanged dilator, and 035 wire was advanced into the IVC. Attention was then turned to the right chest wall. An appropriate catheter exit site was chosen, and local anesthetic was again administered. A skin luis e was made, and the catheter was tunneled under the skin from the exit site to the venotomy. After serial tissue dilation, the dialysis catheter was advanced through a peel- away sheath, until the tip was in the right atrium. Vacuum aspiration and flushing was performed. Each lumen was instilled with heparin. The catheter was secured to the skin with 2-0 Ethilon suture. The venotomy site was closed with Dermabond. Sterile dressings were placed, and the patient was transported from the procedure area in stable condition. Findings: 1. Ultrasound demonstrates a patent and compressible right IJ vein. 2. There is successful placement of a 23cm Glidepath tunneled dialysis catheter via the right IJ vein. 3. Each lumen flushes and aspirates briskly. 4. Positioning of the catheter tip within the right atrium is confirmed by fluoroscopy. The catheter is ready for use.
[2016-12-17] MEDS: LEVAQUIN 500MG/100ML 500 MG/100 ML BAG IV SCH (20:13)
[2016-12-17] MEDS: DILAUDID IV PRN (21:26)
[2016-12-18] MEDS: DILAUDID IV PRN ×3 (05:10→18:28)
[2016-12-18 06:22] LABS: Basophils % (Auto) 0.8 % (0.0-1.8); Eosinophils % (Auto) 1.2 % (0.0-4.3); Hemoglobin 7.3 gm/dl (10.1-14.3); Mean Corpuscular HGB Conc 32 % (30-34); Mean Corpuscular Hemoglobin 29 pg (28-32); Mean Corpuscular Volume 89 fl (79-97); Platelet Count 266 K/mm3 (140-440); Red Blood Count 2.58 M/mm3 (3.65-5.03); Red Cell Distribution Width 15.9 % (13.2-15.2); White Blood Count 15.6 K/mm3 (4.5-11.0)
[2016-12-18 06:37] LABS: BUN/Creatinine Ratio 9.2; Calcium 6.8 mg/dL (8.4-10.2); Phosphorous 4.2 mg/dL (2.5-4.5); Potassium 3.8 mmol/L (3.6-5.0)
[2016-12-18] MEDS: FLAGYL 500 MG/100 ML 500 MG/100 ML BAG IV SCH ×2 (08:38→18:11)
[2016-12-18] MEDS: REGLAN IV SCH ×2 (08:39→18:10)
[2016-12-18] MEDS: LOVENOX SUB-Q SCH (09:00)
[2016-12-18] MEDS: PEPCID PO SCH (09:08)
[2016-12-18] MEDS: LOPRESSOR PO SCH ×2 (09:10→22:26)
[2016-12-18] MEDS: NOVOLOG SUB-Q SCH ×4 (09:12→22:26)
--- NOTE | 2016-12-18 10:56 | Progress Note ---
Assessment and Plan (1) DKA (diabetic ketoacidoses) Current Visit: Yes Status: Acute Qualifiers: Diabetes mellitus type: type 1 Diabetes mellitus complication detail: without coma Diabetes mellitus terminal gauger insulin use: D Qualified Code(s): E10.10 - Type 1 diabetes mellitus with ketoacidosis without coma Plan to address problem: S/P DKA on Insulin drip. Now on sliding scale insulin as per Primary team (2) ESRD on HD Current Visit: No Status: Acute Plan to address problem: s/p permcath placement yesterday HD today for clearance and volume removal outpatient dialysis placement is ongoing Monitor I/O's Renally dose medications Obtain daily weights Renal diet (3) Hypertensive chronic kidney disease Current Visit: Yes Status: Acute Plan to address problem: Continue on anti-hypertensive agent. (4) Leukocytosis Current Visit: Yes Status: Acute Qualifiers: Leukocytosis type: L Plan to address problem: followed by ID Subjective Date of service: 12/18/16 Principal diagnosis: Sepsis; Pneumonia Interval history: seen during HD, tolerating Objective - Vital Signs Vital signs: Vital Signs - 12hr 12/18/16 12/18/16 12/18/16 00:00 04:00 09:10 Temperature 98.3 F 98.2 F 97.8 F Pulse Rate 113 H Pulse Rate [ 113 H 109 H 112 H Right Radial] Respiratory 18 18 18 Rate Blood Pressure 168/93 Blood Pressure 173/111 151/95 168/93 [Right Arm] O2 Sat by Pulse 98 97 97 Oximetry 12/18/16 12/18/16 12/18/16 09:45 10:00 10:15 Temperature 98.2 F Pulse Rate 105 H 116 H 106 H Pulse Rate [ Right Radial] Respiratory 18 Rate Blood Pressure 167/100 180/117 175/106 Blood Pressure [Right Arm] O2 Sat by Pulse Oximetry 12/18/16 10:30 Temperature Pulse Rate 111 H Pulse Rate [ Right Radial] Respiratory Rate Blood Pressure 173/115 Blood Pressure [Right Arm] O2 Sat by Pulse Oximetry - General Appearance General appearance: well-developed, well-nourished EENT: ATNC, PERRL, mucous membranes moist Neck: no JVD, no carotid bruit Respiratory: Present: Clear to Ascultation Cardiology: regular, S1S2 Gastrointestinal: normoactive bowel sounds Integumentary: no rash, warm and dry Neurologic: no focal deficit, no asterixis, alert and oriented x3 Musculoskeletal: other (no edema in BLE) Psychiatric: mood/affect appropriate, cooperative - Lab 12/18/16 05:50 12/18/16 05:50 Most recent lab results Calcium 6.8 mg/dL (8.4-10.2) L 12/18/16 05:50 Phosphorus 4.20 mg/dL (2.5-4.5) 12/18/16 05:50 Magnesium 1.90 mg/dL (1.7-2.3) 12/11/16 04:30 Urine Creatinine 29.5 mg/dL (0.1-20.0) H 12/04/16 11:25 Urine Sodium 26 mEq/L 12/04/16 11:25 Urine Total Protein 33 mg/dL (5-11.8) H 12/04/16 11:25
[2016-12-18] MEDS ORDERED: NACL 0.9% 100 ML IV PRN ×4 (11:05→12:37)
--- NOTE | 2016-12-18 11:13 | Progress Note ---
Assessment and Plan - Patient Problems (1) Severe sepsis Current Visit: Yes Status: Deleted Plan to address problem: - resolved - complete AB's per ID recs (2) Cardiac arrest Current Visit: Yes Status: Acute Plan to address problem: - achieved ROSC and no recurrence (3) Acute renal failure Current Visit: No Status: Acute Qualifiers: Acute renal failure type: A Plan to address problem: - remains on dialysis and appears ESRD - s/p permacath placement - per nephrology otherwise (4) Acute respiratory failure with hypoxemia Current Visit: No Status: Acute Plan to address problem: - improved - continue to wean oxygen for sats > 94% - will need bronchoscopy if pneumonia does not resolve over 4-6 weeks - grew pseudomonas and appropriately treated with clinical improvement (5) DKA (diabetic ketoacidoses) Current Visit: Yes Status: Acute Qualifiers: Diabetes mellitus type: type 1 Diabetes mellitus complication detail: without coma Diabetes mellitus technician terminal and repeater insulin use: D Qualified Code(s): E10.10 - Type 1 diabetes mellitus with ketoacidosis without coma Plan to address problem: - resolved - continue SSI (6) Anemia Current Visit: Yes Status: Acute Qualifiers: Anemia type: A Iron deficiency anemia type: I Vitamin B12 deficiency anemia type: V Folate deficiency anemia type: F Bone marrow failure anemia type: B Hemolytic anemia type: H Other causes of anemia: O Chronic kidney disease stage: C Plan to address problem: - multifactorial - continue to treat azotemia - full w/up per attending (7) Discharge planning issues Current Visit: No Status: Acute Plan to address problem: - awaits outpatient dialysis set-up ...will re-evaluate in am & prn Subjective Date of service: 12/18/16 Principal diagnosis: Sepsis; Pneumonia Interval history: Seen and examined at bedside; 24 hour events reviewed; nursing and respiratory care staff consulted; no adverse overnight events reported to me; resting peacefully in bed; s/p permacath and sore at insertion site; No N/V/F/C Objective Vital Signs - 12hr 12/18/16 12/18/16 12/18/16 00:00 04:00 09:10 Temperature 98.3 F 98.2 F 97.8 F Pulse Rate 113 H Pulse Rate [ 113 H 109 H 112 H Right Radial] Respiratory 18 18 18 Rate Blood Pressure 168/93 Blood Pressure 173/111 151/95 168/93 [Right Arm] O2 Sat by Pulse 98 97 97 Oximetry 12/18/16 12/18/16 12/18/16 09:45 10:00 10:15 Temperature 98.2 F Pulse Rate 105 H 116 H 106 H Pulse Rate [ Right Radial] Respiratory 18 Rate Blood Pressure 167/100 180/117 175/106 Blood Pressure [Right Arm] O2 Sat by Pulse Oximetry 12/18/16 12/18/16 10:30 10:45 Temperature Pulse Rate 111 H 103 H Pulse Rate [ Right Radial] Respiratory Rate Blood Pressure 173/115 162/109 Blood Pressure [Right Arm] O2 Sat by Pulse Oximetry Constitutional: no acute distress, alert Eyes: non-icteric ENT: oropharynx moist Neck: supple, no lymphadenopathy Effort: normal Ascultation: Right: rhonchi Cardiovascular: regular rate and rhythm Gastrointestinal: normoactive bowel sounds, soft, non-tender, non-distended Integumentary: normal Extremities: no cyanosis, no edema, pulses normal, no ischemia or petechiae Neurologic: normal mental status, non-focal exam, pupils equal and round, motor strength normal and Psychiatric: mood appropriate, affect normal CBC and BMP: 12/19/16 10:23 12/19/16 10:23 ABG, PT/INR, D-dimer: ABG POC ABG pH 7.326 (7.35-7.45) L 12/09/16 12:02 POC ABG pCO2 37.7 (35-45) 12/09/16 12:02 POC ABG pO2 115 (80-105) H 12/09/16 12:02 POC ABG HCO3 19.7 12/09/16 12:02 POC ABG Total CO2 21 12/09/16 12:02 POC ABG O2 Sat 98 12/09/16 12:02 PT/INR, D-dimer PT 15.3 Sec. (12.2-14.9) H 12/08/16 19:00 INR 1.22 (0.87-1.13) H 12/08/16 19:00 D-Dimer 5507.36 ng/mlDDU (0-234) H 12/08/16 19:00 Abnormal lab findings: Abnormal Labs 12/04/16 12/04/16 12/04/16 01:19 01:36 02:21 WBC RBC Hgb Hct MCV MCHC RDW Plt Count Lymph % (Auto) [place] # Seg Neutrophils % Seg Neuts % (Manual) Lymphocytes % (Manual) Monocytes % (Manual) Nucleated RBC % Seg Neutrophils # Seg Neutrophils # Man Lymphocytes # (Manual) Monocytes # (Manual) Percent Retic Haptoglobin PT INR Fibrinogen D-Dimer POC ABG pH 6.759 L POC ABG pCO2 POC ABG pO2 437 H Sodium Potassium Chloride Carbon Dioxide BUN Creatinine Glucose POC Glucose > 500 H Lactic Acid Calcium Phosphorus 15.70 H Magnesium 4.30 H Iron TIBC Total Bilirubin Direct Bilirubin AST ALT Alkaline Phosphatase Lactate Dehydrogenase CK-MB (CK-2) Troponin T C-Reactive Protein Total Protein Albumin Triglycerides Cholesterol HDL Cholesterol Vitamin B12 Urine Creatinine Urine Total Protein Heparin-induced Plt Ab Hep Bs Antibody, Quant Crossmatch 12/04/16 12/04/16 12/04/16 03:55 04:00 05:11 WBC RBC Hgb Hct MCV MCHC RDW Plt Count Lymph % (Auto) [place] # Seg Neutrophils % Seg Neuts % (Manual) Lymphocytes % (Manual) Monocytes % (Manual) Nucleated RBC % Seg Neutrophils # Seg Neutrophils # Man Lymphocytes # (Manual) Monocytes # (Manual) Percent Retic Haptoglobin PT INR Fibrinogen D-Dimer POC ABG pH POC ABG pCO2 POC ABG pO2 Sodium Potassium Chloride 91.4 L Carbon Dioxide 8 L* BUN 55 H Creatinine 2.8 H Glucose 1610 H* POC Glucose > 500 H > 500 H Lactic Acid Calcium Phosphorus Magnesium Iron TIBC Total Bilirubin Direct Bilirubin AST ALT Alkaline Phosphatase Lactate Dehydrogenase CK-MB (CK-2) Troponin T C-Reactive Protein Total Protein Albumin Triglycerides Cholesterol HDL Cholesterol Vitamin B12 Urine Creatinine Urine Total Protein Heparin-induced Plt Ab Hep Bs Antibody, Quant Crossmatch 12/04/16 12/04/16 12/04/16 05:40 05:54 06:58 WBC RBC Hgb Hct MCV MCHC RDW Plt Count Lymph % (Auto) [place] # Seg Neutrophils % Seg Neuts % (Manual) Lymphocytes % (Manual) Monocytes % (Manual) Nucleated RBC % Seg Neutrophils # Seg Neutrophils # Man Lymphocytes # (Manual) Monocytes # (Manual) Percent Retic Haptoglobin PT INR Fibrinogen D-Dimer POC ABG pH 7.154 L POC ABG pCO2 27.5 L POC ABG pO2 111 H Sodium Potassium Chloride Carbon Dioxide BUN Creatinine Glucose POC Glucose > 500 H > 500 H Lactic Acid Calcium Phosphorus Magnesium Iron TIBC Total Bilirubin Direct Bilirubin AST ALT Alkaline Phosphatase Lactate Dehydrogenase CK-MB (CK-2) Troponin T C-Reactive Protein Total Protein Albumin Triglycerides Cholesterol HDL Cholesterol Vitamin B12 Urine Creatinine Urine Total Protein Heparin-induced Plt Ab Hep Bs Antibody, Quant Crossmatch 12/04/16 12/04/16 12/04/16 07:49 07:55 07:55 WBC RBC Hgb Hct MCV MCHC RDW Plt Count Lymph % (Auto) [place] # Seg Neutrophils % Seg Neuts % (Manual) Lymphocytes % (Manual) Monocytes % (Manual) Nucleated RBC % Seg Neutrophils # Seg Neutrophils # Man Lymphocytes # (Manual) Monocytes # (Manual) Percent Retic Haptoglobin PT INR Fibrinogen D-Dimer POC ABG pH POC ABG pCO2 POC ABG pO2 Sodium Potassium 3.3 L Chloride Carbon Dioxide 9 L* BUN 53 H Creatinine 2.9 H Glucose 1229 H* POC Glucose > 500 H Lactic Acid Calcium Phosphorus Magnesium Iron TIBC Total Bilirubin Direct Bilirubin AST ALT Alkaline Phosphatase Lactate Dehydrogenase CK-MB (CK-2) Troponin T 0.111 H* D C-Reactive Protein Total Protein Albumin Triglycerides 570 H Cholesterol 221 H HDL Cholesterol 37 L Vitamin B12 Urine Creatinine Urine Total Protein Heparin-induced Plt Ab Hep Bs Antibody, Quant Crossmatch 12/04/16 12/04/16 12/04/16 07:55 09:55 09:55 WBC RBC 2.90 L Hgb 8.5 L Hct 30.2 L D MCV 105 H D MCHC 28 L RDW 19.2 H Plt Count Lymph % (Auto) [place] # Seg Neutrophils % Seg Neuts % (Manual) Lymphocytes % (Manual) 11.0 L Monocytes % (Manual) Nucleated RBC % Seg Neutrophils # Seg Neutrophils # Man Lymphocytes # (Manual) 0.6 L Monocytes # (Manual) Percent Retic Haptoglobin PT INR Fibrinogen D-Dimer POC ABG pH POC ABG pCO2 POC ABG pO2 Sodium Potassium 3.1 L Chloride Carbon Dioxide 7 L* BUN 51 H Creatinine 3.2 H Glucose 969 H* POC Glucose Lactic Acid Calcium 10.4 H D Phosphorus Magnesium Iron TIBC Total Bilirubin Direct Bilirubin AST ALT Alkaline Phosphatase Lactate Dehydrogenase CK-MB (CK-2) 4.6 H Troponin T 0.140 H* D C-Reactive Protein Total Protein Albumin Triglycerides Cholesterol HDL Cholesterol Vitamin B12 Urine Creatinine Urine Total Protein Heparin-induced Plt Ab Hep Bs Antibody, Quant Crossmatch 12/04/16 12/04/1617 09:55 10:37 11:25 WBC RBC Hgb Hct MCV MCHC RDW Plt Count Lymph % (Auto) [place] # Seg Neutrophils % Seg Neuts % (Manual) Lymphocytes % (Manual) Monocytes % (Manual) Nucleated RBC % Seg Neutrophils # Seg Neutrophils # Man Lymphocytes # (Manual) Monocytes # (Manual) Percent Retic Haptoglobin PT INR Fibrinogen D-Dimer POC ABG pH 7.215 L POC ABG pCO2 18.8 L POC ABG pO2 193 H Sodium Potassium Chloride Carbon Dioxide BUN Creatinine Glucose POC Glucose Lactic Acid Calcium Phosphorus Magnesium 3.70 H Iron TIBC Total Bilirubin Direct Bilirubin AST ALT Alkaline Phosphatase Lactate Dehydrogenase CK-MB (CK-2) Troponin T C-Reactive Protein Total Protein Albumin Triglycerides Cholesterol HDL Cholesterol Vitamin B12 Urine Creatinine 29.5 H Urine Total Protein 33 H Heparin-induced Plt Ab Hep Bs Antibody, Quant Crossmatch 12/04/16 12/04/16 12/04/16 12:00 12:48 13:00 WBC RBC Hgb Hct MCV MCHC RDW Plt Count Lymph % (Auto) [place] # Seg Neutrophils % Seg Neuts % (Manual) Lymphocytes % (Manual) Monocytes % (Manual) Nucleated RBC % Seg Neutrophils # Seg Neutrophils # Man Lymphocytes # (Manual) Monocytes # (Manual) Percent Retic Haptoglobin PT INR Fibrinogen D-Dimer POC ABG pH POC ABG pCO2 POC ABG pO2 Sodium 149 H 150 H Potassium 3.2 L 3.2 L Chloride 109.1 H Carbon Dioxide 8 L* 8 L* BUN 52 H 49 H Creatinine 3.4 H 3.1 H Glucose 723 H* 574 H* POC Glucose Lactic Acid 18.80 H* Calcium Phosphorus Magnesium Iron TIBC Total Bilirubin Direct Bilirubin AST ALT Alkaline Phosphatase Lactate Dehydrogenase CK-MB (CK-2) Troponin T C-Reactive Protein Total Protein Albumin Triglycerides Cholesterol HDL Cholesterol Vitamin B12 Urine Creatinine Urine Total Protein Heparin-induced Plt Ab Hep Bs Antibody, Quant Crossmatch 12/04/16 12/04/16 12/04/16 13:01 14:41 16:06 WBC RBC Hgb Hct MCV MCHC RDW Plt Count Lymph % (Auto) [place] # Seg Neutrophils % Seg Neuts % (Manual) Lymphocytes % (Manual) Monocytes % (Manual) Nucleated RBC % Seg Neutrophils # Seg Neutrophils # Man Lymphocytes # (Manual) Monocytes # (Manual) Percent Retic Haptoglobin PT INR Fibrinogen D-Dimer POC ABG pH POC ABG pCO2 POC ABG pO2 Sodium 151 H Potassium 3.2 L Chloride 108.1 H Carbon Dioxide 10 L BUN 49 H Creatinine 3.0 H Glucose 383 H POC Glucose 292 H Lactic Acid Calcium Phosphorus Magnesium Iron TIBC Total Bilirubin Direct Bilirubin AST ALT Alkaline Phosphatase Lactate Dehydrogenase CK-MB (CK-2) Troponin T C-Reactive Protein 3.50 H Total Protein Albumin Triglycerides Cholesterol HDL Cholesterol Vitamin B12 Urine Creatinine Urine Total Protein Heparin-induced Plt Ab Hep Bs Antibody, Quant Crossmatch 12/04/16 12/04/16 12/04/16 17:15 17:25 18:07 WBC RBC Hgb Hct MCV MCHC RDW Plt Count Lymph % (Auto) [place] # Seg Neutrophils % Seg Neuts % (Manual) Lymphocytes % (Manual) Monocytes % (Manual) Nucleated RBC % Seg Neutrophils # Seg Neutrophils # Man Lymphocytes # (Manual) Monocytes # (Manual) Percent Retic Haptoglobin PT INR Fibrinogen D-Dimer POC ABG pH 7.255 L POC ABG pCO2 16.9 L POC ABG pO2 169 H Sodium Potassium Chloride Carbon Dioxide BUN Creatinine Glucose POC Glucose 246 H Lactic Acid 18.50 H* Calcium Phosphorus Magnesium Iron TIBC Total Bilirubin Direct Bilirubin AST ALT Alkaline Phosphatase Lactate Dehydrogenase CK-MB (CK-2) Troponin T C-Reactive Protein Total Protein Albumin Triglycerides Cholesterol HDL Cholesterol Vitamin B12 Urine Creatinine Urine Total Protein Heparin-induced Plt Ab Hep Bs Antibody, Quant Crossmatch 12/04/16 12/04/16 12/04/16 19:34 20:31 21:15 WBC RBC Hgb Hct MCV MCHC RDW Plt Count Lymph % (Auto) [place] # Seg Neutrophils % Seg Neuts % (Manual) Lymphocytes % (Manual) Monocytes % (Manual) Nucleated RBC % Seg Neutrophils # Seg Neutrophils # Man Lymphocytes # (Manual) Monocytes # (Manual) Percent Retic Haptoglobin PT INR Fibrinogen D-Dimer POC ABG pH POC ABG pCO2 POC ABG pO2 Sodium Potassium Chloride Carbon Dioxide BUN Creatinine Glucose POC Glucose 189 H 126 H 139 H Lactic Acid Calcium Phosphorus Magnesium Iron TIBC Total Bilirubin Direct Bilirubin AST ALT Alkaline Phosphatase Lactate Dehydrogenase CK-MB (CK-2) Troponin T C-Reactive Protein Total Protein Albumin Triglycerides Cholesterol HDL Cholesterol Vitamin B12 Urine Creatinine Urine Total Protein Heparin-induced Plt Ab Hep Bs Antibody, Quant Crossmatch 12/04/16 12/04/16 12/04/16 21:25 22:37 23:35 WBC RBC Hgb Hct MCV MCHC RDW Plt Count Lymph % (Auto) [place] # Seg Neutrophils % Seg Neuts % (Manual) Lymphocytes % (Manual) Monocytes % (Manual) Nucleated RBC % Seg Neutrophils # Seg Neutrophils # Man Lymphocytes # (Manual) Monocytes # (Manual) Percent Retic Haptoglobin PT INR Fibrinogen D-Dimer POC ABG pH 7.294 L POC ABG pCO2 16.7 L POC ABG pO2 169 H Sodium Potassium Chloride Carbon Dioxide BUN Creatinine Glucose POC Glucose 131 H 106 H Lactic Acid Calcium Phosphorus Magnesium Iron TIBC Total Bilirubin Direct Bilirubin AST ALT Alkaline Phosphatase Lactate Dehydrogenase CK-MB (CK-2) Troponin T C-Reactive Protein Total Protein Albumin Triglycerides Cholesterol HDL Cholesterol Vitamin B12 Urine Creatinine Urine Total Protein Heparin-induced Plt Ab Hep Bs Antibody, Quant Crossmatch 12/05/16 12/05/16 12/05/16 02:40 02:50 02:50 WBC RBC Hgb Hct MCV MCHC RDW Plt Count Lymph % (Auto) [place] # Seg Neutrophils % Seg Neuts % (Manual) Lymphocytes % (Manual) Monocytes % (Manual) Nucleated RBC % Seg Neutrophils # Seg Neutrophils # Man Lymphocytes # (Manual) Monocytes # (Manual) Percent Retic Haptoglobin PT INR Fibrinogen D-Dimer POC ABG pH POC ABG pCO2 POC ABG pO2 Sodium 151 H Potassium Chloride 113.8 H Carbon Dioxide 12 L BUN 46 H Creatinine 3.2 H Glucose 165 H POC Glucose 109 H Lactic Acid 9.80 H* Calcium 8.3 L Phosphorus Magnesium Iron TIBC Total Bilirubin Direct Bilirubin AST ALT Alkaline Phosphatase Lactate Dehydrogenase CK-MB (CK-2) Troponin T C-Reactive Protein Total Protein Albumin Triglycerides Cholesterol HDL Cholesterol Vitamin B12 Urine Creatinine Urine Total Protein Heparin-induced Plt Ab Hep Bs Antibody, Quant Crossmatch 12/05/16 12/05/16 12/05/16 04:01 04:30 04:30 WBC 19.1 H RBC 2.91 L Hgb 8.0 L Hct 25.4 L MCV MCHC RDW 17.8 H Plt Count Lymph % (Auto) [place] # Seg Neutrophils % Seg Neuts % (Manual) 17.0 L Lymphocytes % (Manual) 7.0 L Monocytes % (Manual) Nucleated RBC % 3.0 H Seg Neutrophils # Seg Neutrophils # Man Lymphocytes # (Manual) Monocytes # (Manual) Percent Retic Haptoglobin PT INR Fibrinogen D-Dimer POC ABG pH POC ABG pCO2 POC ABG pO2 Sodium 152 H Potassium Chloride 113.5 H Carbon Dioxide 12 L BUN 47 H Creatinine 3.2 H Glucose 133 H POC Glucose 179 H Lactic Acid Calcium 8.3 L Phosphorus 1.00 L D Magnesium Iron TIBC Total Bilirubin Direct Bilirubin AST ALT Alkaline Phosphatase Lactate Dehydrogenase CK-MB (CK-2) Troponin T C-Reactive Protein Total Protein Albumin Triglycerides Cholesterol HDL Cholesterol Vitamin B12 Urine Creatinine Urine Total Protein Heparin-induced Plt Ab Hep Bs Antibody, Quant Crossmatch 12/05/16 12/05/16 12/05/16 05:32 08:01 08:48 WBC RBC Hgb Hct MCV MCHC RDW Plt Count Lymph % (Auto) [place] # Seg Neutrophils % Seg Neuts % (Manual) Lymphocytes % (Manual) Monocytes % (Manual) Nucleated RBC % Seg Neutrophils # Seg Neutrophils # Man Lymphocytes # (Manual) Monocytes # (Manual) Percent Retic Haptoglobin PT INR Fibrinogen D-Dimer POC ABG pH POC ABG pCO2 17.6 L POC ABG pO2 62 L Sodium Potassium Chloride Carbon Dioxide BUN Creatinine Glucose POC Glucose 126 H 130 H Lactic Acid Calcium Phosphorus Magnesium Iron TIBC Total Bilirubin Direct Bilirubin AST ALT Alkaline Phosphatase Lactate Dehydrogenase CK-MB (CK-2) Troponin T C-Reactive Protein Total Protein Albumin Triglycerides Cholesterol HDL Cholesterol Vitamin B12 Urine Creatinine Urine Total Protein Heparin-induced Plt Ab Hep Bs Antibody, Quant Crossmatch 12/05/16 12/05/16 12/05/16 08:54 12:01 15:15 WBC RBC Hgb Hct MCV MCHC RDW Plt Count Lymph % (Auto) [place] # Seg Neutrophils % Seg Neuts % (Manual) Lymphocytes % (Manual) Monocytes % (Manual) Nucleated RBC % Seg Neutrophils # Seg Neutrophils # Man Lymphocytes # (Manual) Monocytes # (Manual) Percent Retic Haptoglobin PT INR Fibrinogen D-Dimer POC ABG pH POC ABG pCO2 POC ABG pO2 Sodium Potassium Chloride Carbon Dioxide BUN Creatinine Glucose POC Glucose 157 H 117 H 166 H Lactic Acid Calcium Phosphorus Magnesium Iron TIBC Total Bilirubin Direct Bilirubin AST ALT Alkaline Phosphatase Lactate Dehydrogenase CK-MB (CK-2) Troponin T C-Reactive Protein Total Protein Albumin Triglycerides Cholesterol HDL Cholesterol Vitamin B12 Urine Creatinine Urine Total Protein Heparin-induced Plt Ab Hep Bs Antibody, Quant Crossmatch 12/05/16 12/05/16 12/05/16 16:10 16:55 17:08 WBC RBC Hgb Hct MCV MCHC RDW Plt Count Lymph % (Auto) [place] # Seg Neutrophils % Seg Neuts % (Manual) Lymphocytes % (Manual) Monocytes % (Manual) Nucleated RBC % Seg Neutrophils # Seg Neutrophils # Man Lymphocytes # (Manual) Monocytes # (Manual) Percent Retic Haptoglobin PT INR Fibrinogen D-Dimer POC ABG pH POC ABG pCO2 POC ABG pO2 Sodium Potassium Chloride Carbon Dioxide BUN Creatinine Glucose POC Glucose 178 H 169 H Lactic Acid Calcium Phosphorus 5.00 H D Magnesium Iron TIBC Total Bilirubin Direct Bilirubin AST ALT Alkaline Phosphatase Lactate Dehydrogenase CK-MB (CK-2) Troponin T C-Reactive Protein Total Protein Albumin Triglycerides Cholesterol HDL Cholesterol Vitamin B12 Urine Creatinine Urine Total Protein Heparin-induced Plt Ab Hep Bs Antibody, Quant Crossmatch 12/05/16 12/05/16 12/05/16 18:08 18:51 20:04 WBC RBC Hgb Hct MCV MCHC RDW Plt Count Lymph % (Auto) [place] # Seg Neutrophils % Seg Neuts % (Manual) Lymphocytes % (Manual) Monocytes % (Manual) Nucleated RBC % Seg Neutrophils # Seg Neutrophils # Man Lymphocytes # (Manual) Monocytes # (Manual) Percent Retic Haptoglobin PT INR Fibrinogen D-Dimer POC ABG pH POC ABG pCO2 POC ABG pO2 Sodium Potassium Chloride Carbon Dioxide BUN Creatinine Glucose POC Glucose 147 H 113 H 64 L Lactic Acid Calcium Phosphorus Magnesium Iron TIBC Total Bilirubin Direct Bilirubin AST ALT Alkaline Phosphatase Lactate Dehydrogenase CK-MB (CK-2) Troponin T C-Reactive Protein Total Protein Albumin Triglycerides Cholesterol HDL Cholesterol Vitamin B12 Urine Creatinine Urine Total Protein Heparin-induced Plt Ab Hep Bs Antibody, Quant Crossmatch 12/05/16 12/05/16 12/05/16 21:34 22:08 23:19 WBC RBC Hgb Hct MCV MCHC RDW Plt Count Lymph % (Auto) [place] # Seg Neutrophils % Seg Neuts % (Manual) Lymphocytes % (Manual) Monocytes % (Manual) Nucleated RBC % Seg Neutrophils # Seg Neutrophils # Man Lymphocytes # (Manual) Monocytes # (Manual) Percent Retic Haptoglobin PT INR Fibrinogen D-Dimer POC ABG pH 7.303 L POC ABG pCO2 18.3 L POC ABG pO2 73 L Sodium Potassium Chloride Carbon Dioxide BUN Creatinine Glucose POC Glucose 141 H 200 H Lactic Acid Calcium Phosphorus Magnesium Iron TIBC Total Bilirubin Direct Bilirubin AST ALT Alkaline Phosphatase Lactate Dehydrogenase CK-MB (CK-2) Troponin T C-Reactive Protein Total Protein Albumin Triglycerides Cholesterol HDL Cholesterol Vitamin B12 Urine Creatinine Urine Total Protein Heparin-induced Plt Ab Hep Bs Antibody, Quant Crossmatch 12/06/16 12/06/16 12/06/16 00:01 01:09 02:00 WBC RBC Hgb Hct MCV MCHC RDW Plt Count Lymph % (Auto) [place] # Seg Neutrophils % Seg Neuts % (Manual) Lymphocytes % (Manual) Monocytes % (Manual) Nucleated RBC % Seg Neutrophils # Seg Neutrophils # Man Lymphocytes # (Manual) Monocytes # (Manual) Percent Retic Haptoglobin PT INR Fibrinogen D-Dimer POC ABG pH POC ABG pCO2 POC ABG pO2 Sodium Potassium Chloride Carbon Dioxide BUN Creatinine Glucose POC Glucose 211 H 116 H 57 L Lactic Acid Calcium Phosphorus Magnesium Iron TIBC Total Bilirubin Direct Bilirubin AST ALT Alkaline Phosphatase Lactate Dehydrogenase CK-MB (CK-2) Troponin T C-Reactive Protein Total Protein Albumin Triglycerides Cholesterol HDL Cholesterol Vitamin B12 Urine Creatinine Urine Total Protein Heparin-induced Plt Ab Hep Bs Antibody, Quant Crossmatch 12/06/16 12/06/16 12/06/16 04:14 04:50 04:50 WBC RBC 2.68 L Hgb 7.6 L Hct 23.2 L MCV MCHC RDW 18.9 H Plt Count Lymph % (Auto) [place] # Seg Neutrophils % Seg Neuts % (Manual) 32.0 L Lymphocytes % (Manual) Monocytes % (Manual) Nucleated RBC % 3.0 H Seg Neutrophils # Seg Neutrophils # Man Lymphocytes # (Manual) 0.9 L Monocytes # (Manual) Percent Retic Haptoglobin PT INR Fibrinogen D-Dimer POC ABG pH POC ABG pCO2 POC ABG pO2 Sodium Potassium 5.8 H D Chloride 111.5 H Carbon Dioxide 11 L BUN 52 H Creatinine 3.8 H Glucose 186 H POC Glucose 133 H Lactic Acid Calcium 6.5 L D Phosphorus 5.80 H Magnesium Iron TIBC Total Bilirubin Direct Bilirubin AST ALT Alkaline Phosphatase Lactate Dehydrogenase CK-MB (CK-2) Troponin T C-Reactive Protein Total Protein Albumin Triglycerides Cholesterol HDL Cholesterol Vitamin B12 Urine Creatinine Urine Total Protein Heparin-induced Plt Ab Hep Bs Antibody, Quant Crossmatch 12/06/16 12/06/16 12/06/16 04:50 05:04 05:07 WBC RBC Hgb Hct MCV MCHC RDW Plt Count Lymph % (Auto) [place] # Seg Neutrophils % Seg Neuts % (Manual) Lymphocytes % (Manual) Monocytes % (Manual) Nucleated RBC % Seg Neutrophils # Seg Neutrophils # Man Lymphocytes # (Manual) Monocytes # (Manual) Percent Retic Haptoglobin PT INR Fibrinogen D-Dimer POC ABG pH POC ABG pCO2 13.0 L POC ABG pO2 111 H Sodium Potassium Chloride Carbon Dioxide BUN Creatinine Glucose POC Glucose 127 H Lactic Acid 6.50 H* Calcium Phosphorus Magnesium Iron TIBC Total Bilirubin Direct Bilirubin AST ALT Alkaline Phosphatase Lactate Dehydrogenase CK-MB (CK-2) Troponin T C-Reactive Protein Total Protein Albumin Triglycerides Cholesterol HDL Cholesterol Vitamin B12 Urine Creatinine Urine Total Protein Heparin-induced Plt Ab Hep Bs Antibody, Quant Crossmatch 12/06/16 12/06/16 12/06/16 06:10 06:54 07:46 WBC RBC Hgb Hct MCV MCHC RDW Plt Count Lymph % (Auto) [place] # Seg Neutrophils % Seg Neuts % (Manual) Lymphocytes % (Manual) Monocytes % (Manual) Nucleated RBC % Seg Neutrophils # Seg Neutrophils # Man Lymphocytes # (Manual) Monocytes # (Manual) Percent Retic Haptoglobin PT INR Fibrinogen D-Dimer POC ABG pH POC ABG pCO2 POC ABG pO2 Sodium Potassium Chloride Carbon Dioxide BUN Creatinine Glucose POC Glucose 219 H 237 H 158 H Lactic Acid Calcium Phosphorus Magnesium Iron TIBC Total Bilirubin Direct Bilirubin AST ALT Alkaline Phosphatase Lactate Dehydrogenase CK-MB (CK-2) Troponin T C-Reactive Protein Total Protein Albumin Triglycerides Cholesterol HDL Cholesterol Vitamin B12 Urine Creatinine Urine Total Protein Heparin-induced Plt Ab Hep Bs Antibody, Quant Crossmatch 12/06/16 12/06/16 12/06/16 08:55 10:27 11:58 WBC RBC Hgb Hct MCV MCHC RDW Plt Count Lymph % (Auto) [place] # Seg Neutrophils % Seg Neuts % (Manual) Lymphocytes % (Manual) Monocytes % (Manual) Nucleated RBC % Seg Neutrophils # Seg Neutrophils # Man Lymphocytes # (Manual) Monocytes # (Manual) Percent Retic Haptoglobin PT INR Fibrinogen D-Dimer POC ABG pH POC ABG pCO2 POC ABG pO2 Sodium Potassium Chloride Carbon Dioxide BUN Creatinine Glucose POC Glucose 40 L 128 H 144 H Lactic Acid Calcium Phosphorus Magnesium Iron TIBC Total Bilirubin Direct Bilirubin AST ALT Alkaline Phosphatase Lactate Dehydrogenase CK-MB (CK-2) Troponin T C-Reactive Protein Total Protein Albumin Triglycerides Cholesterol HDL Cholesterol Vitamin B12 Urine Creatinine Urine Total Protein Heparin-induced Plt Ab Hep Bs Antibody, Quant Crossmatch 12/06/16 12/06/16 12/06/16 18:14 19:00 19:06 WBC RBC Hgb Hct MCV MCHC RDW Plt Count Lymph % (Auto) [place] # Seg Neutrophils % Seg Neuts % (Manual) Lymphocytes % (Manual) Monocytes % (Manual) Nucleated RBC % Seg Neutrophils # Seg Neutrophils # Man Lymphocytes # (Manual) Monocytes # (Manual) Percent Retic Haptoglobin PT INR Fibrinogen D-Dimer POC ABG pH POC ABG pCO2 POC ABG pO2 Sodium 149 H Potassium 5.6 H Chloride 115.9 H Carbon Dioxide 13 L BUN 56 H Creatinine 4.3 H Glucose 124 H POC Glucose 55 L 148 H Lactic Acid Calcium 6.0 L Phosphorus Magnesium Iron TIBC Total Bilirubin Direct Bilirubin AST ALT Alkaline Phosphatase Lactate Dehydrogenase CK-MB (CK-2) Troponin T C-Reactive Protein Total Protein Albumin Triglycerides Cholesterol HDL Cholesterol Vitamin B12 Urine Creatinine Urine Total Protein Heparin-induced Plt Ab Hep Bs Antibody, Quant Crossmatch 12/06/16 12/06/16 12/07/16 21:24 21:51 02:32 WBC RBC Hgb Hct MCV MCHC RDW Plt Count Lymph % (Auto) [place] # Seg Neutrophils % Seg Neuts % (Manual) Lymphocytes % (Manual) Monocytes % (Manual) Nucleated RBC % Seg Neutrophils # Seg Neutrophils # Man Lymphocytes # (Manual) Monocytes # (Manual) Percent Retic Haptoglobin PT INR Fibrinogen D-Dimer POC ABG pH POC ABG pCO2 17.0 L POC ABG pO2 142 H Sodium Potassium Chloride Carbon Dioxide BUN Creatinine Glucose POC Glucose 107 H 175 H Lactic Acid Calcium Phosphorus Magnesium Iron TIBC Total Bilirubin Direct Bilirubin AST ALT Alkaline Phosphatase Lactate Dehydrogenase CK-MB (CK-2) Troponin T C-Reactive Protein Total Protein Albumin Triglycerides Cholesterol HDL Cholesterol Vitamin B12 Urine Creatinine Urine Total Protein Heparin-induced Plt Ab Hep Bs Antibody, Quant Crossmatch 12/07/16 12/07/16 12/07/16 05:01 05:25 06:00 WBC RBC 2.52 L Hgb 7.1 L Hct 22.1 L MCV MCHC RDW 19.3 H Plt Count 90 L Lymph % (Auto) [place] # Seg Neutrophils % Seg Neuts % (Manual) 75.0 H Lymphocytes % (Manual) 11.0 L Monocytes % (Manual) Nucleated RBC % Seg Neutrophils # Seg Neutrophils # Man Lymphocytes # (Manual) 0.7 L Monocytes # (Manual) Percent Retic Haptoglobin PT INR Fibrinogen D-Dimer POC ABG pH 7.300 L POC ABG pCO2 17.1 L POC ABG pO2 140 H Sodium Potassium Chloride Carbon Dioxide BUN Creatinine Glucose POC Glucose 279 H Lactic Acid Calcium Phosphorus Magnesium Iron TIBC Total Bilirubin Direct Bilirubin AST ALT Alkaline Phosphatase Lactate Dehydrogenase CK-MB (CK-2) Troponin T C-Reactive Protein Total Protein Albumin Triglycerides Cholesterol HDL Cholesterol Vitamin B12 Urine Creatinine Urine Total Protein Heparin-induced Plt Ab Hep Bs Antibody, Quant Crossmatch 12/07/16 12/07/16 12/07/16 06:00 06:00 07:30 WBC RBC Hgb Hct MCV MCHC RDW Plt Count Lymph % (Auto) [place] # Seg Neutrophils % Seg Neuts % (Manual) Lymphocytes % (Manual) Monocytes % (Manual) Nucleated RBC % Seg Neutrophils # Seg Neutrophils # Man Lymphocytes # (Manual) Monocytes # (Manual) Percent Retic Haptoglobin PT INR Fibrinogen D-Dimer POC ABG pH POC ABG pCO2 POC ABG pO2 Sodium Potassium Chloride Carbon Dioxide BUN Creatinine Glucose POC Glucose Lactic Acid 6.90 H* Calcium Phosphorus 6.80 H Magnesium Iron TIBC Total Bilirubin Direct Bilirubin AST ALT Alkaline Phosphatase Lactate Dehydrogenase CK-MB (CK-2) Troponin T C-Reactive Protein 39.40 H Total Protein Albumin Triglycerides Cholesterol HDL Cholesterol Vitamin B12 Urine Creatinine Urine Total Protein Heparin-induced Plt Ab Hep Bs Antibody, Quant Crossmatch 12/07/16 12/07/16 12/07/16 08:40 10:53 14:31 WBC RBC Hgb Hct MCV MCHC RDW Plt Count Lymph % (Auto) [place] # Seg Neutrophils % Seg Neuts % (Manual) Lymphocytes % (Manual) Monocytes % (Manual) Nucleated RBC % Seg Neutrophils # Seg Neutrophils # Man Lymphocytes # (Manual) Monocytes # (Manual) Percent Retic Haptoglobin PT INR Fibrinogen D-Dimer POC ABG pH POC ABG pCO2 POC ABG pO2 Sodium Potassium 7.0 H* D Chloride 112.4 H Carbon Dioxide 8 L* BUN 61 H Creatinine 5.1 H Glucose 213 H POC Glucose 353 H 52 L Lactic Acid Calcium 5.8 L* Phosphorus Magnesium Iron TIBC Total Bilirubin Direct Bilirubin AST ALT Alkaline Phosphatase Lactate Dehydrogenase CK-MB (CK-2) Troponin T C-Reactive Protein Total Protein Albumin Triglycerides Cholesterol HDL Cholesterol Vitamin B12 Urine Creatinine Urine Total Protein Heparin-induced Plt Ab Hep Bs Antibody, Quant Crossmatch 12/07/16 12/07/16 12/07/16 14:45 15:33 16:22 WBC RBC Hgb Hct MCV MCHC RDW Plt Count Lymph % (Auto) [place] # Seg Neutrophils % Seg Neuts % (Manual) Lymphocytes % (Manual) Monocytes % (Manual) Nucleated RBC % Seg Neutrophils # Seg Neutrophils # Man Lymphocytes # (Manual) Monocytes # (Manual) Percent Retic Haptoglobin PT 17.5 H INR 1.44 H Fibrinogen D-Dimer POC ABG pH POC ABG pCO2 POC ABG pO2 Sodium Potassium Chloride Carbon Dioxide BUN Creatinine Glucose POC Glucose < 40 L 118 H Lactic Acid Calcium Phosphorus Magnesium Iron TIBC Total Bilirubin Direct Bilirubin AST ALT Alkaline Phosphatase Lactate Dehydrogenase CK-MB (CK-2) Troponin T C-Reactive Protein Total Protein Albumin Triglycerides Cholesterol HDL Cholesterol Vitamin B12 Urine Creatinine Urine Total Protein Heparin-induced Plt Ab Hep Bs Antibody, Quant Crossmatch 12/07/16 12/07/16 12/07/16 21:35 21:35 21:58 WBC RBC Hgb Hct MCV MCHC RDW Plt Count Lymph % (Auto) [place] # Seg Neutrophils % Seg Neuts % (Manual) Lymphocytes % (Manual) Monocytes % (Manual) Nucleated RBC % Seg Neutrophils # Seg Neutrophils # Man Lymphocytes # (Manual) Monocytes # (Manual) Percent Retic Haptoglobin PT INR Fibrinogen D-Dimer POC ABG pH POC ABG pCO2 POC ABG pO2 Sodium 150 H Potassium 3.3 L D Chloride 111.4 H Carbon Dioxide 21 L D BUN 22 H Creatinine 2.6 H Glucose 23 L* POC Glucose < 40 L Lactic Acid Calcium Phosphorus Magnesium Iron TIBC Total Bilirubin 1.40 H Direct Bilirubin 0.9 H AST 94 H ALT 142 H Alkaline Phosphatase 249 H Lactate Dehydrogenase CK-MB (CK-2) Troponin T C-Reactive Protein Total Protein 4.6 L D Albumin 2.1 L Triglycerides Cholesterol HDL Cholesterol Vitamin B12 Urine Creatinine Urine Total Protein Heparin-induced Plt Ab Hep Bs Antibody, Quant Crossmatch 12/07/16 12/08/16 12/08/16 23:31 04:43 04:50 WBC RBC 2.35 L Hgb 6.6 L Hct 20.1 L MCV MCHC RDW 17.8 H Plt Count 48 L Lymph % (Auto) [place] # Seg Neutrophils % Seg Neuts % (Manual) Lymphocytes % (Manual) Monocytes % (Manual) Nucleated RBC % Seg Neutrophils # Seg Neutrophils # Man Lymphocytes # (Manual) 0.9 L Monocytes # (Manual) Percent Retic Haptoglobin PT INR Fibrinogen D-Dimer POC ABG pH 7.586 H POC ABG pCO2 17.7 L POC ABG pO2 150 H Sodium Potassium Chloride Carbon Dioxide BUN Creatinine Glucose POC Glucose 42 L Lactic Acid Calcium Phosphorus Magnesium Iron TIBC Total Bilirubin Direct Bilirubin AST ALT Alkaline Phosphatase Lactate Dehydrogenase CK-MB (CK-2) Troponin T C-Reactive Protein Total Protein Albumin Triglycerides Cholesterol HDL Cholesterol Vitamin B12 Urine Creatinine Urine Total Protein Heparin-induced Plt Ab Hep Bs Antibody, Quant Crossmatch 12/08/16 12/08/16 12/08/16 04:50 04:59 06:54 WBC RBC Hgb Hct MCV MCHC RDW Plt Count Lymph % (Auto) [place] # Seg Neutrophils % Seg Neuts % (Manual) Lymphocytes % (Manual) Monocytes % (Manual) Nucleated RBC % Seg Neutrophils # Seg Neutrophils # Man Lymphocytes # (Manual) Monocytes # (Manual) Percent Retic Haptoglobin PT INR Fibrinogen D-Dimer POC ABG pH POC ABG pCO2 POC ABG pO2 Sodium 149 H Potassium 3.2 L Chloride 111.8 H Carbon Dioxide 17 L BUN 26 H Creatinine 3.4 H Glucose 163 H POC Glucose 204 H 203 H Lactic Acid Calcium 7.7 L Phosphorus 2.40 L D Magnesium Iron TIBC Total Bilirubin Direct Bilirubin AST ALT Alkaline Phosphatase Lactate Dehydrogenase CK-MB (CK-2) Troponin T C-Reactive Protein Total Protein Albumin Triglycerides Cholesterol HDL Cholesterol Vitamin B12 Urine Creatinine Urine Total Protein Heparin-induced Plt Ab Hep Bs Antibody, Quant Crossmatch 12/08/16 12/08/16 12/08/16 08:04 08:46 08:46 WBC RBC Hgb Hct MCV MCHC RDW Plt Count Lymph % (Auto) [place] # Seg Neutrophils % Seg Neuts % (Manual) Lymphocytes % (Manual) Monocytes % (Manual) Nucleated RBC % Seg Neutrophils # Seg Neutrophils # Man Lymphocytes # (Manual) Monocytes # (Manual) Percent Retic Haptoglobin PT INR Fibrinogen D-Dimer POC ABG pH POC ABG pCO2 POC ABG pO2 Sodium 147 H Potassium 2.9 L* Chloride 110.6 H Carbon Dioxide 17 L BUN 28 H Creatinine 3.6 H Glucose 127 H POC Glucose 205 H Lactic Acid Calcium 7.3 L Phosphorus Magnesium Iron TIBC Total Bilirubin Direct Bilirubin AST ALT Alkaline Phosphatase Lactate Dehydrogenase CK-MB (CK-2) Troponin T C-Reactive Protein Total Protein Albumin Triglycerides Cholesterol HDL Cholesterol Vitamin B12 Urine Creatinine Urine Total Protein Heparin-induced Plt Ab Hep Bs Antibody, Quant Crossmatch See Detail 12/08/16 12/08/16 12/08/16 12:36 19:00 19:00 WBC RBC Hgb Hct MCV MCHC RDW Plt Count Lymph % (Auto) [place] # Seg Neutrophils % Seg Neuts % (Manual) Lymphocytes % (Manual) Monocytes % (Manual) Nucleated RBC % Seg Neutrophils # Seg Neutrophils # Man Lymphocytes # (Manual) Monocytes # (Manual) Percent Retic Haptoglobin PT 15.3 H INR 1.22 H Fibrinogen 563 H D-Dimer 5507.36 H POC ABG pH POC ABG pCO2 POC ABG pO2 Sodium Potassium Chloride Carbon Dioxide 21 L BUN Creatinine 1.7 H D Glucose 155 H POC Glucose 181 H Lactic Acid Calcium Phosphorus Magnesium Iron TIBC Total Bilirubin Direct Bilirubin AST ALT Alkaline Phosphatase Lactate Dehydrogenase CK-MB (CK-2) Troponin T C-Reactive Protein Total Protein Albumin Triglycerides Cholesterol HDL Cholesterol Vitamin B12 Urine Creatinine Urine Total Protein Heparin-induced Plt Ab Hep Bs Antibody, Quant Crossmatch 12/08/16 12/08/16 12/08/16 19:00 19:00 21:30 WBC RBC 2.76 L Hgb 7.8 L Hct 23.7 L MCV MCHC RDW 17.0 H Plt Count 38 L Lymph % (Auto) [place] # Seg Neutrophils % Seg Neuts % (Manual) Lymphocytes % (Manual) Monocytes % (Manual) Nucleated RBC % Seg Neutrophils # Seg Neutrophils # Man Lymphocytes # (Manual) Monocytes # (Manual) Percent Retic Haptoglobin 271 H PT INR Fibrinogen D-Dimer POC ABG pH POC ABG pCO2 POC ABG pO2 Sodium Potassium Chloride Carbon Dioxide BUN Creatinine Glucose POC Glucose Lactic Acid Calcium Phosphorus Magnesium Iron TIBC Total Bilirubin Direct Bilirubin AST ALT Alkaline Phosphatase Lactate Dehydrogenase 382 H CK-MB (CK-2) Troponin T C-Reactive Protein Total Protein Albumin Triglycerides Cholesterol HDL Cholesterol Vitamin B12 Urine Creatinine Urine Total Protein Heparin-induced Plt Ab Hep Bs Antibody, Quant Crossmatch 12/08/16 12/08/16 12/09/16 23:32 23:44 05:22 WBC RBC Hgb Hct MCV MCHC RDW Plt Count Lymph % (Auto) [place] # Seg Neutrophils % Seg Neuts % (Manual) Lymphocytes % (Manual) Monocytes % (Manual) Nucleated RBC % Seg Neutrophils # Seg Neutrophils # Man Lymphocytes # (Manual) Monocytes # (Manual) Percent Retic Haptoglobin PT INR Fibrinogen D-Dimer POC ABG pH 7.498 H POC ABG pCO2 25.2 L POC ABG pO2 137 H Sodium Potassium Chloride Carbon Dioxide BUN Creatinine Glucose POC Glucose 311 H 113 H Lactic Acid Calcium Phosphorus Magnesium Iron TIBC Total Bilirubin Direct Bilirubin AST ALT Alkaline Phosphatase Lactate Dehydrogenase CK-MB (CK-2) Troponin T C-Reactive Protein Total Protein Albumin Triglycerides Cholesterol HDL Cholesterol Vitamin B12 Urine Creatinine Urine Total Protein Heparin-induced Plt Ab Hep Bs Antibody, Quant Crossmatch 12/09/16 12/09/16 12/09/16 06:00 11:29 11:59 WBC RBC Hgb Hct MCV MCHC RDW Plt Count Lymph % (Auto) [place] # Seg Neutrophils % Seg Neuts % (Manual) Lymphocytes % (Manual) Monocytes % (Manual) Nucleated RBC % Seg Neutrophils # Seg Neutrophils # Man Lymphocytes # (Manual) Monocytes # (Manual) Percent Retic 0.23 L Haptoglobin PT INR Fibrinogen D-Dimer POC ABG pH POC ABG pCO2 POC ABG pO2 Sodium Potassium Chloride 110.2 H Carbon Dioxide 18 L BUN 19 H Creatinine 2.5 H Glucose 105 H POC Glucose 254 H Lactic Acid Calcium Phosphorus 2.00 L Magnesium Iron TIBC Total Bilirubin Direct Bilirubin AST ALT Alkaline Phosphatase Lactate Dehydrogenase CK-MB (CK-2) Troponin T C-Reactive Protein Total Protein Albumin Triglycerides Cholesterol HDL Cholesterol Vitamin B12 Urine Creatinine Urine Total Protein Heparin-induced Plt Ab Hep Bs Antibody, Quant Crossmatch 12/09/16 12/09/16 12/09/16 12:02 13:27 13:27 WBC RBC Hgb Hct MCV MCHC RDW Plt Count Lymph % (Auto) [place] # Seg Neutrophils % Seg Neuts % (Manual) Lymphocytes % (Manual) Monocytes % (Manual) Nucleated RBC % Seg Neutrophils # Seg Neutrophils # Man Lymphocytes # (Manual) Monocytes # (Manual) Percent Retic Haptoglobin PT INR Fibrinogen D-Dimer POC ABG pH 7.326 L POC ABG pCO2 POC ABG pO2 115 H Sodium Potassium Chloride Carbon Dioxide BUN Creatinine Glucose POC Glucose Lactic Acid Calcium Phosphorus Magnesium Iron 15 L TIBC 134 L Total Bilirubin Direct Bilirubin AST ALT Alkaline Phosphatase Lactate Dehydrogenase CK-MB (CK-2) Troponin T C-Reactive Protein Total Protein Albumin Triglycerides Cholesterol HDL Cholesterol Vitamin B12 > 2000 H Urine Creatinine Urine Total Protein Heparin-induced Plt Ab Hep Bs Antibody, Quant Crossmatch 12/09/16 12/09/16 12/09/16 13:27 13:27 16:28 WBC RBC Hgb Hct MCV MCHC RDW Plt Count Lymph % (Auto) [place] # Seg Neutrophils % Seg Neuts % (Manual) Lymphocytes % (Manual) Monocytes % (Manual) Nucleated RBC % Seg Neutrophils # Seg Neutrophils # Man Lymphocytes # (Manual) Monocytes # (Manual) Percent Retic Haptoglobin PT INR Fibrinogen D-Dimer POC ABG pH POC ABG pCO2 POC ABG pO2 Sodium Potassium Chloride Carbon Dioxide BUN Creatinine Glucose POC Glucose 199 H Lactic Acid Calcium Phosphorus Magnesium Iron TIBC Total Bilirubin Direct Bilirubin AST ALT Alkaline Phosphatase Lactate Dehydrogenase CK-MB (CK-2) Troponin T C-Reactive Protein Total Protein Albumin Triglycerides Cholesterol HDL Cholesterol Vitamin B12 Urine Creatinine Urine Total Protein Heparin-induced Plt Ab Weak positive H Hep Bs Antibody, Quant <5 L Crossmatch 12/09/16 12/09/16 12/10/16 23:27 Unknown 05:36 WBC 11.3 H RBC 2.92 L Hgb 8.4 L Hct 25.3 L MCV MCHC RDW 16.9 H Plt Count 31 L Lymph % (Auto) [place] # Seg Neutrophils % Seg Neuts % (Manual) Lymphocytes % (Manual) Monocytes % (Manual) Nucleated RBC % Seg Neutrophils # Seg Neutrophils # Man Lymphocytes # (Manual) Monocytes # (Manual) Percent Retic Haptoglobin PT INR Fibrinogen D-Dimer POC ABG pH POC ABG pCO2 POC ABG pO2 Sodium Potassium Chloride Carbon Dioxide BUN Creatinine Glucose POC Glucose 247 H 248 H Lactic Acid Calcium Phosphorus Magnesium Iron TIBC Total Bilirubin Direct Bilirubin AST ALT Alkaline Phosphatase Lactate Dehydrogenase CK-MB (CK-2) Troponin T C-Reactive Protein Total Protein Albumin Triglycerides Cholesterol HDL Cholesterol Vitamin B12 Urine Creatinine Urine Total Protein Heparin-induced Plt Ab Hep Bs Antibody, Quant Crossmatch 12/10/16 12/10/16 12/10/16 09:55 09:55 11:49 WBC 21.2 H RBC 3.37 L Hgb 9.6 L Hct 29.5 L MCV MCHC RDW 16.3 H Plt Count 102 L D Lymph % (Auto) [place] # Seg Neutrophils % Seg Neuts % (Manual) Lymphocytes % (Manual) Monocytes % (Manual) Nucleated RBC % Seg Neutrophils # Seg Neutrophils # Man Lymphocytes # (Manual) Monocytes # (Manual) Percent Retic Haptoglobin PT INR Fibrinogen D-Dimer POC ABG pH POC ABG pCO2 POC ABG pO2 Sodium Potassium Chloride 107.4 H Carbon Dioxide 21 L BUN 37 H Creatinine 4.2 H D Glucose 174 H POC Glucose 265 H Lactic Acid Calcium Phosphorus Magnesium Iron TIBC Total Bilirubin Direct Bilirubin AST ALT Alkaline Phosphatase Lactate Dehydrogenase CK-MB (CK-2) Troponin T C-Reactive Protein Total Protein Albumin Triglycerides Cholesterol HDL Cholesterol Vitamin B12 Urine Creatinine Urine Total Protein Heparin-induced Plt Ab Hep Bs Antibody, Quant Crossmatch 12/10/16 12/10/16 12/11/16 17:56 23:44 04:30 WBC 23.5 H RBC 3.46 L Hgb 9.7 L Hct 30.1 L MCV MCHC RDW 16.4 H Plt Count 115 L Lymph % (Auto) [place] # Seg Neutrophils % Seg Neuts % (Manual) 84.0 H Lymphocytes % (Manual) 5.0 L Monocytes % (Manual) 10.0 H Nucleated RBC % 1.0 H Seg Neutrophils # Seg Neutrophils # Man 19.7 H Lymphocytes # (Manual) Monocytes # (Manual) 2.4 H Percent Retic Haptoglobin PT INR Fibrinogen D-Dimer POC ABG pH POC ABG pCO2 POC ABG pO2 Sodium Potassium Chloride Carbon Dioxide BUN Creatinine Glucose POC Glucose 118 H 378 H Lactic Acid Calcium Phosphorus Magnesium Iron TIBC Total Bilirubin Direct Bilirubin AST ALT Alkaline Phosphatase Lactate Dehydrogenase CK-MB (CK-2) Troponin T C-Reactive Protein Total Protein Albumin Triglycerides Cholesterol HDL Cholesterol Vitamin B12 Urine Creatinine Urine Total Protein Heparin-induced Plt Ab Hep Bs Antibody, Quant Crossmatch 12/11/16 12/11/16 12/11/16 04:30 05:33 12:48 WBC RBC Hgb Hct MCV MCHC RDW Plt Count Lymph % (Auto) [place] # Seg Neutrophils % Seg Neuts % (Manual) Lymphocytes % (Manual) Monocytes % (Manual) Nucleated RBC % Seg Neutrophils # Seg Neutrophils # Man Lymphocytes # (Manual) Monocytes # (Manual) Percent Retic Haptoglobin PT INR Fibrinogen D-Dimer POC ABG pH POC ABG pCO2 POC ABG pO2 Sodium Potassium Chloride Carbon Dioxide 21 L BUN 50 H Creatinine 4.8 H Glucose 303 H POC Glucose 335 H 325 H Lactic Acid Calcium 8.2 L Phosphorus Magnesium Iron TIBC Total Bilirubin Direct Bilirubin AST ALT Alkaline Phosphatase Lactate Dehydrogenase CK-MB (CK-2) Troponin T C-Reactive Protein Total Protein Albumin Triglycerides Cholesterol HDL Cholesterol Vitamin B12 Urine Creatinine Urine Total Protein Heparin-induced Plt Ab Hep Bs Antibody, Quant Crossmatch 12/11/16 12/11/16 12/12/16 17:49 21:16 00:49 WBC RBC Hgb Hct MCV MCHC RDW Plt Count Lymph % (Auto) [place] # Seg Neutrophils % Seg Neuts % (Manual) Lymphocytes % (Manual) Monocytes % (Manual) Nucleated RBC % Seg Neutrophils # Seg Neutrophils # Man Lymphocytes # (Manual) Monocytes # (Manual) Percent Retic Haptoglobin PT INR Fibrinogen D-Dimer POC ABG pH POC ABG pCO2 POC ABG pO2 Sodium Potassium Chloride Carbon Dioxide BUN Creatinine Glucose POC Glucose 368 H 162 H 225 H Lactic Acid Calcium Phosphorus Magnesium Iron TIBC Total Bilirubin Direct Bilirubin AST ALT Alkaline Phosphatase Lactate Dehydrogenase CK-MB (CK-2) Troponin T C-Reactive Protein Total Protein Albumin Triglycerides Cholesterol HDL Cholesterol Vitamin B12 Urine Creatinine Urine Total Protein Heparin-induced Plt Ab Hep Bs Antibody, Quant Crossmatch 12/12/16 12/12/16 12/12/16 06:09 07:52 08:18 WBC 24.1 H RBC 3.16 L Hgb 9.0 L Hct 29.4 L MCV MCHC RDW 16.6 H Plt Count 96 L Lymph % (Auto) [place] # Seg Neutrophils % Seg Neuts % (Manual) 75.0 H Lymphocytes % (Manual) Monocytes % (Manual) Nucleated RBC % Seg Neutrophils # Seg Neutrophils # Man 18.1 H Lymphocytes # (Manual) Monocytes # (Manual) 1.4 H Percent Retic Haptoglobin PT INR Fibrinogen D-Dimer POC ABG pH POC ABG pCO2 POC ABG pO2 Sodium Potassium Chloride Carbon Dioxide BUN Creatinine Glucose POC Glucose 428 H 418 H Lactic Acid Calcium Phosphorus Magnesium Iron TIBC Total Bilirubin Direct Bilirubin AST ALT Alkaline Phosphatase Lactate Dehydrogenase CK-MB (CK-2) Troponin T C-Reactive Protein Total Protein Albumin Triglycerides Cholesterol HDL Cholesterol Vitamin B12 Urine Creatinine Urine Total Protein Heparin-induced Plt Ab Hep Bs Antibody, Quant Crossmatch 12/12/16 12/12/16 12/12/16 08:18 11:31 17:03 WBC RBC Hgb Hct MCV MCHC RDW Plt Count Lymph % (Auto) [place] # Seg Neutrophils % Seg Neuts % (Manual) Lymphocytes % (Manual) Monocytes % (Manual) Nucleated RBC % Seg Neutrophils # Seg Neutrophils # Man Lymphocytes # (Manual) Monocytes # (Manual) Percent Retic Haptoglobin PT INR Fibrinogen D-Dimer POC ABG pH POC ABG pCO2 POC ABG pO2 Sodium Potassium Chloride Carbon Dioxide 12 L D BUN 41 H Creatinine 4.5 H Glucose 369 H POC Glucose 212 H 422 H Lactic Acid Calcium Phosphorus Magnesium Iron TIBC Total Bilirubin Direct Bilirubin AST ALT Alkaline Phosphatase Lactate Dehydrogenase CK-MB (CK-2) Troponin T C-Reactive Protein Total Protein Albumin Triglycerides Cholesterol HDL Cholesterol Vitamin B12 Urine Creatinine Urine Total Protein Heparin-induced Plt Ab Hep Bs Antibody, Quant Crossmatch 12/12/16 12/13/16 12/13/16 21:35 07:49 07:49 WBC 24.0 H RBC 2.90 L Hgb 8.3 L Hct 25.8 L MCV MCHC RDW 15.5 H Plt Count 120 L Lymph % (Auto) [place] # Seg Neutrophils % Seg Neuts % (Manual) 89.0 H Lymphocytes % (Manual) 7.0 L Monocytes % (Manual) Nucleated RBC % Seg Neutrophils # Seg Neutrophils # Man 21.4 H Lymphocytes # (Manual) Monocytes # (Manual) Percent Retic Haptoglobin PT INR Fibrinogen D-Dimer POC ABG pH POC ABG pCO2 POC ABG pO2 Sodium Potassium 3.2 L Chloride Carbon Dioxide BUN 21 H Creatinine 3.0 H Glucose 21 L* POC Glucose 185 H Lactic Acid Calcium Phosphorus Magnesium Iron TIBC Total Bilirubin Direct Bilirubin AST ALT Alkaline Phosphatase Lactate Dehydrogenase CK-MB (CK-2) Troponin T C-Reactive Protein Total Protein Albumin Triglycerides Cholesterol HDL Cholesterol Vitamin B12 Urine Creatinine Urine Total Protein Heparin-induced Plt Ab Hep Bs Antibody, Quant Crossmatch 12/13/16 12/13/16 12/13/16 09:57 11:02 16:52 WBC RBC Hgb Hct MCV MCHC RDW Plt Count Lymph % (Auto) [place] # Seg Neutrophils % Seg Neuts % (Manual) Lymphocytes % (Manual) Monocytes % (Manual) Nucleated RBC % Seg Neutrophils # Seg Neutrophils # Man Lymphocytes # (Manual) Monocytes # (Manual) Percent Retic Haptoglobin PT INR Fibrinogen D-Dimer POC ABG pH POC ABG pCO2 POC ABG pO2 Sodium Potassium Chloride Carbon Dioxide BUN Creatinine Glucose POC Glucose < 40 L 231 H 312 H Lactic Acid Calcium Phosphorus Magnesium Iron TIBC Total Bilirubin Direct Bilirubin AST ALT Alkaline Phosphatase Lactate Dehydrogenase CK-MB (CK-2) Troponin T C-Reactive Protein Total Protein Albumin Triglycerides Cholesterol HDL Cholesterol Vitamin B12 Urine Creatinine Urine Total Protein Heparin-induced Plt Ab Hep Bs Antibody, Quant Crossmatch 12/13/16 12/14/16 12/14/16 21:32 07:07 07:07 WBC 16.7 H RBC 2.80 L Hgb 7.9 L Hct 24.7 L MCV MCHC RDW 15.4 H Plt Count 131 L Lymph % (Auto) 13.1 L [place] # 1.2 H Seg Neutrophils % 78.3 H Seg Neuts % (Manual) Lymphocytes % (Manual) Monocytes % (Manual) Nucleated RBC % Seg Neutrophils # 13.1 H Seg Neutrophils # Man Lymphocytes # (Manual) Monocytes # (Manual) Percent Retic Haptoglobin PT INR Fibrinogen D-Dimer POC ABG pH POC ABG pCO2 POC ABG pO2 Sodium Potassium 3.5 L Chloride Carbon Dioxide BUN 30 H Creatinine 4.6 H D Glucose 181 H POC Glucose 275 H Lactic Acid Calcium 7.7 L Phosphorus Magnesium Iron TIBC Total Bilirubin Direct Bilirubin AST ALT Alkaline Phosphatase Lactate Dehydrogenase CK-MB (CK-2) Troponin T C-Reactive Protein Total Protein Albumin Triglycerides Cholesterol HDL Cholesterol Vitamin B12 Urine Creatinine Urine Total Protein Heparin-induced Plt Ab Hep Bs Antibody, Quant Crossmatch 12/14/16 12/14/16 12/14/16 07:46 11:35 16:24 WBC RBC Hgb Hct MCV MCHC RDW Plt Count Lymph % (Auto) [place] # Seg Neutrophils % Seg Neuts % (Manual) Lymphocytes % (Manual) Monocytes % (Manual) Nucleated RBC % Seg Neutrophils # Seg Neutrophils # Man Lymphocytes # (Manual) Monocytes # (Manual) Percent Retic Haptoglobin PT INR Fibrinogen D-Dimer POC ABG pH POC ABG pCO2 POC ABG pO2 Sodium Potassium Chloride Carbon Dioxide BUN Creatinine Glucose POC Glucose 189 H 254 H 466 H Lactic Acid Calcium Phosphorus Magnesium Iron TIBC Total Bilirubin Direct Bilirubin AST ALT Alkaline Phosphatase Lactate Dehydrogenase CK-MB (CK-2) Troponin T C-Reactive Protein Total Protein Albumin Triglycerides Cholesterol HDL Cholesterol Vitamin B12 Urine Creatinine Urine Total Protein Heparin-induced Plt Ab Hep Bs Antibody, Quant Crossmatch 12/14/16 12/15/16 12/15/16 20:57 06:27 07:46 WBC RBC Hgb Hct MCV MCHC RDW Plt Count Lymph % (Auto) [place] # Seg Neutrophils % Seg Neuts % (Manual) Lymphocytes % (Manual) Monocytes % (Manual) Nucleated RBC % Seg Neutrophils # Seg Neutrophils # Man Lymphocytes # (Manual) Monocytes # (Manual) Percent Retic Haptoglobin PT INR Fibrinogen D-Dimer POC ABG pH POC ABG pCO2 POC ABG pO2 Sodium Potassium Chloride Carbon Dioxide BUN Creatinine Glucose POC Glucose 301 H 183 H 231 H Lactic Acid Calcium Phosphorus Magnesium Iron TIBC Total Bilirubin Direct Bilirubin AST ALT Alkaline Phosphatase Lactate Dehydrogenase CK-MB (CK-2) Troponin T C-Reactive Protein Total Protein Albumin Triglycerides Cholesterol HDL Cholesterol Vitamin B12 Urine Creatinine Urine Total Protein Heparin-induced Plt Ab Hep Bs Antibody, Quant Crossmatch 12/15/16 12/15/16 12/15/16 11:38 15:34 20:51 WBC RBC Hgb Hct MCV MCHC RDW Plt Count Lymph % (Auto) [place] # Seg Neutrophils % Seg Neuts % (Manual) Lymphocytes % (Manual) Monocytes % (Manual) Nucleated RBC % Seg Neutrophils # Seg Neutrophils # Man Lymphocytes # (Manual) Monocytes # (Manual) Percent Retic Haptoglobin PT INR Fibrinogen D-Dimer POC ABG pH POC ABG pCO2 POC ABG pO2 Sodium Potassium Chloride Carbon Dioxide BUN Creatinine Glucose POC Glucose 375 H 313 H 274 H Lactic Acid Calcium Phosphorus Magnesium Iron TIBC Total Bilirubin Direct Bilirubin AST ALT Alkaline Phosphatase Lactate Dehydrogenase CK-MB (CK-2) Troponin T C-Reactive Protein Total Protein Albumin Triglycerides Cholesterol HDL Cholesterol Vitamin B12 Urine Creatinine Urine Total Protein Heparin-induced Plt Ab Hep Bs Antibody, Quant Crossmatch 12/16/16 12/16/16 12/16/16 08:26 09:12 17:13 WBC RBC Hgb Hct MCV MCHC RDW Plt Count Lymph % (Auto) [place] # Seg Neutrophils % Seg Neuts % (Manual) Lymphocytes % (Manual) Monocytes % (Manual) Nucleated RBC % Seg Neutrophils # Seg Neutrophils # Man Lymphocytes # (Manual) Monocytes # (Manual) Percent Retic Haptoglobin PT INR Fibrinogen D-Dimer POC ABG pH POC ABG pCO2 POC ABG pO2 Sodium Potassium Chloride Carbon Dioxide BUN Creatinine Glucose POC Glucose 59 L 127 H > 500 H Lactic Acid Calcium Phosphorus Magnesium Iron TIBC Total Bilirubin Direct Bilirubin AST ALT Alkaline Phosphatase Lactate Dehydrogenase CK-MB (CK-2) Troponin T C-Reactive Protein Total Protein Albumin Triglycerides Cholesterol HDL Cholesterol Vitamin B12 Urine Creatinine Urine Total Protein Heparin-induced Plt Ab Hep Bs Antibody, Quant Crossmatch 12/16/16 12/16/16 12/16/16 22:59 Unknown Unknown WBC 17.2 H RBC 2.83 L Hgb 7.9 L Hct 24.4 L MCV MCHC RDW Plt Count Lymph % (Auto) 9.2 L [place] # 0.9 H Seg Neutrophils % 84.1 H Seg Neuts % (Manual) Lymphocytes % (Manual) Monocytes % (Manual) Nucleated RBC % Seg Neutrophils # 14.5 H Seg Neutrophils # Man Lymphocytes # (Manual) Monocytes # (Manual) Percent Retic Haptoglobin PT INR Fibrinogen D-Dimer POC ABG pH POC ABG pCO2 POC ABG pO2 Sodium Potassium Chloride Carbon Dioxide BUN 43 H Creatinine 5.4 H Glucose 131 H POC Glucose 320 H Lactic Acid Calcium 6.9 L Phosphorus Magnesium Iron TIBC Total Bilirubin Direct Bilirubin AST ALT Alkaline Phosphatase Lactate Dehydrogenase CK-MB (CK-2) Troponin T C-Reactive Protein Total Protein Albumin Triglycerides Cholesterol HDL Cholesterol Vitamin B12 Urine Creatinine Urine Total Protein Heparin-induced Plt Ab Hep Bs Antibody, Quant Crossmatch 12/17/16 12/17/16 12/17/16 08:26 08:56 09:52 WBC RBC Hgb Hct MCV MCHC RDW Plt Count Lymph % (Auto) [place] # Seg Neutrophils % Seg Neuts % (Manual) Lymphocytes % (Manual) Monocytes % (Manual) Nucleated RBC % Seg Neutrophils # Seg Neutrophils # Man Lymphocytes # (Manual) Monocytes # (Manual) Percent Retic Haptoglobin PT INR Fibrinogen D-Dimer POC ABG pH POC ABG pCO2 POC ABG pO2 Sodium Potassium Chloride Carbon Dioxide BUN Creatinine Glucose POC Glucose < 40 L 40 L 133 H Lactic Acid Calcium Phosphorus Magnesium Iron TIBC Total Bilirubin Direct Bilirubin AST ALT Alkaline Phosphatase Lactate Dehydrogenase CK-MB (CK-2) Troponin T C-Reactive Protein Total Protein Albumin Triglycerides Cholesterol HDL Cholesterol Vitamin B12 Urine Creatinine Urine Total Protein Heparin-induced Plt Ab Hep Bs Antibody, Quant Crossmatch 12/17/16 12/17/16 12/17/16 12:51 16:08 21:00 WBC RBC Hgb Hct MCV MCHC RDW Plt Count Lymph % (Auto) [place] # Seg Neutrophils % Seg Neuts % (Manual) Lymphocytes % (Manual) Monocytes % (Manual) Nucleated RBC % Seg Neutrophils # Seg Neutrophils # Man Lymphocytes # (Manual) Monocytes # (Manual) Percent Retic Haptoglobin PT INR Fibrinogen D-Dimer POC ABG pH POC ABG pCO2 POC ABG pO2 Sodium Potassium Chloride Carbon Dioxide BUN Creatinine Glucose POC Glucose 177 H 303 H 489 H Lactic Acid Calcium Phosphorus Magnesium Iron TIBC Total Bilirubin Direct Bilirubin AST ALT Alkaline Phosphatase Lactate Dehydrogenase CK-MB (CK-2) Troponin T C-Reactive Protein Total Protein Albumin Triglycerides Cholesterol HDL Cholesterol Vitamin B12 Urine Creatinine Urine Total Protein Heparin-induced Plt Ab Hep Bs Antibody, Quant Crossmatch 12/17/16 12/17/1617 Unknown Unknown 05:50 WBC 16.6 H 15.6 H RBC 2.63 L 2.58 L Hgb 7.5 L 7.3 L Hct 23.3 L 23.0 L MCV MCHC RDW 15.3 H 15.9 H Plt Count Lymph % (Auto) 7.7 L 8.7 L [place] # 0.9 H Seg Neutrophils % 85.8 H 83.6 H Seg Neuts % (Manual) Lymphocytes % (Manual) Monocytes % (Manual) Nucleated RBC % Seg Neutrophils # 14.3 H 13.0 H Seg Neutrophils # Man Lymphocytes # (Manual) Monocytes # (Manual) Percent Retic Haptoglobin PT INR Fibrinogen D-Dimer POC ABG pH POC ABG pCO2 POC ABG pO2 Sodium Potassium 3.5 L Chloride Carbon Dioxide BUN 47 H Creatinine 5.2 H Glucose 173 H POC Glucose Lactic Acid Calcium 6.9 L Phosphorus Magnesium Iron TIBC Total Bilirubin Direct Bilirubin AST ALT Alkaline Phosphatase Lactate Dehydrogenase CK-MB (CK-2) Troponin T C-Reactive Protein Total Protein Albumin Triglycerides Cholesterol HDL Cholesterol Vitamin B12 Urine Creatinine Urine Total Protein Heparin-induced Plt Ab Hep Bs Antibody, Quant Crossmatch 12/18/16 12/18/16 05:50 09:09 WBC RBC Hgb Hct MCV MCHC RDW Plt Count Lymph % (Auto) [place] # Seg Neutrophils % Seg Neuts % (Manual) Lymphocytes % (Manual) Monocytes % (Manual) Nucleated RBC % Seg Neutrophils # Seg Neutrophils # Man Lymphocytes # (Manual) Monocytes # (Manual) Percent Retic Haptoglobin PT INR Fibrinogen D-Dimer POC ABG pH POC ABG pCO2 POC ABG pO2 Sodium Potassium Chloride Carbon Dioxide 17 L BUN 46 H Creatinine 5.0 H Glucose 252 H POC Glucose 349 H Lactic Acid Calcium 6.8 L Phosphorus Magnesium Iron TIBC Total Bilirubin Direct Bilirubin AST ALT Alkaline Phosphatase Lactate Dehydrogenase CK-MB (CK-2) Troponin T C-Reactive Protein Total Protein Albumin Triglycerides Cholesterol HDL Cholesterol Vitamin B12 Urine Creatinine Urine Total Protein Heparin-induced Plt Ab Hep Bs Antibody, Quant Crossmatch
[2016-12-18] MEDS ORDERED: NACL 0.9 (PRIMING MACHINE ONLY DIALYSIS) MC ONE (11:15)
[2016-12-18] MEDS: PROCRIT IV PRN (12:52)
[2016-12-18] MEDS: HEPARIN IV PRN (13:35)
--- NOTE | 2016-12-18 15:36 | Progress Note ---
Assessment and Plan Assessment and plan: Cardiac arrest with V. fib - Likely from hyperkalemia, currently patient is stable - Was treated with amiodarone ARF, ATN - Nephrology is following, she is going to continue hemodialysis Acute hypoxic respiratory failure extubated - Resolved Cardiac arrest was STEMI - Cardiology is following - Resolved DKA: - resolved - On sliding insulin Metabolic Acidosis - On bicarbonate - resolved Acute metabolic encephalopathy - resolved Leukocytosis +GNR in trach aspirate, pseudomonas aeruginosa - On levaquin and Flagyl - ID is following -DVT prophylaxis: SCDs only due to recent SAH Thrombocytopenia - Resolved Acute on chronic anemia of chronic disease s/p 2 unit of prbc, monitoring closely - Hemoglobin is 7.3 Depression - Psych consulted and recommend O/P mental health follow up. Disposition - Patient needs O/P dialysis set up. History Interval history: Patient was seen and evaluated this morning, patient is not in pain or in distress. Hospitalist Physical - Physical exam Narrative exam: Not in cardiopulmonary distress. The patient appeared well nourished and normally developed. Vital signs as documented. Head exam is unremarkable. No scleral icterus . Neck is without jugular venous distension, thyromegaly, or carotid bruits. Lungs are clear to auscultation. Cardiac exam reveals regular rate and Rhythm. First and second heart sounds normal. No murmurs, rubs or gallops. Abdominal exam reveals normal bowel sounds, no masses, no organomegaly and no aortic enlargement. Extremities are nonedematous and both femoral and pedal pulses are normal. 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 No focal weakness. - Constitutional Vitals: Temp Pulse Resp BP Pulse Ox 98.1 F 107 H 18 145/96 97 12/18/16 13:05 12/18/16 13:05 12/18/16 13:05 12/18/16 13:05 12/18/16 09:10 General appearance: Present: no acute distress (resting comfortably) Results - Labs CBC & Chem 7: 12/18/16 05:50 12/18/16 05:50 Labs: Laboratory Last Values WBC 15.6 K/mm3 (4.5-11.0) H 12/18/16 05:50 RBC 2.58 M/mm3 (3.65-5.03) L 12/18/16 05:50 Hgb 7.3 gm/dl (10.1-14.3) L 12/18/16 05:50 Hct 23.0 % (30.3-42.9) L 12/18/16 05:50 MCV 89 fl (79-97) 12/18/16 05:50 MCH 29 pg (28-32) 12/18/16 05:50 MCHC 32 % (30-34) 12/18/16 05:50 RDW 15.9 % (13.2-15.2) H 12/18/16 05:50 Plt Count 266 K/mm3 (140-440) 12/18/16 05:50 Lymph % (Auto) 8.7 % (13.4-35.0) L 12/18/16 05:50 [place] % (Auto) 5.7 % (0.0-7.3) 12/18/16 05:50 Eos % (Auto) 1.2 % (0.0-4.3) 12/18/16 05:50 Baso % (Auto) 0.8 % (0.0-1.8) 12/18/16 05:50 Lymph # 1.4 K/mm3 (1.2-5.4) 12/18/16 05:50 [place] # 0.9 K/mm3 (0.0-0.8) H 12/18/16 05:50 Eos # 0.2 K/mm3 (0.0-0.4) 12/18/16 05:50 Baso # 0.1 K/mm3 (0.0-0.1) 12/18/16 05:50 Add Manual Diff Complete 12/13/16 07:49 Total Counted 100 12/13/16 07:49 Seg Neutrophils % 83.6 % (40.0-70.0) H 12/18/16 05:50 Seg Neuts % (Manual) 89.0 % (40.0-70.0) H 12/13/16 07:49 Band Neutrophils % 1.0 % 12/13/16 07:49 Lymphocytes % (Manual) 7.0 % (13.4-35.0) L 12/13/16 07:49 Reactive Lymphs % (Man) 0 % 12/13/16 07:49 Monocytes % (Manual) 3.0 % (0.0-7.3) 12/13/16 07:49 Eosinophils % (Manual) 0 % (0.0-4.3) 12/13/16 07:49 Basophils % (Manual) 0 % (0.0-1.8) 12/13/16 07:49 Metamyelocytes % 0 % 12/13/16 07:49 Myelocytes % 0 % 12/13/16 07:49 Promyelocytes % 0 % 12/13/16 07:49 Blast Cells % 0 % 12/13/16 07:49 Nucleated RBC % Not Reportable 12/13/16 07:49 Seg Neutrophils # 13.0 K/mm3 (1.8-7.7) H 12/18/16 05:50 Seg Neutrophils # Man 21.4 K/mm3 (1.8-7.7) H 12/13/16 07:49 Band Neutrophils # 0.2 K/mm3 12/13/16 07:49 Lymphocytes # (Manual) 1.7 K/mm3 (1.2-5.4) 12/13/16 07:49 Abs React Lymphs (Man) 0.0 K/mm3 12/13/16 07:49 Monocytes # (Manual) 0.7 K/mm3 (0.0-0.8) 12/13/16 07:49 Eosinophils # (Manual) 0.0 K/mm3 (0.0-0.4) 12/13/16 07:49 Basophils # (Manual) 0.0 K/mm3 (0.0-0.1) 12/13/16 07:49 Metamyelocytes # 0.0 K/mm3 12/13/16 07:49 Myelocytes # 0.0 K/mm3 12/13/16 07:49 Promyelocytes # 0.0 K/mm3 12/13/16 07:49 Blast Cells # 0.0 K/mm3 12/13/16 07:49 WBC Morphology Not Reportable 12/13/16 07:49 Hypersegmented Neuts Not Reportable 12/13/16 07:49 Hyposegmented Neuts Not Reportable 12/13/16 07:49 Hypogranular Neuts Not Reportable 12/13/16 07:49 Smudge Cells Not Reportable 12/13/16 07:49 Toxic Granulation Not Reportable 12/13/16 07:49 Toxic Vacuolation Not Reportable 12/13/16 07:49 Dohle Bodies Not Reportable 12/13/16 07:49 Pelger-Huet Anomaly Not Reportable 12/13/16 07:49 Mary Rods Not Reportable 12/13/16 07:49 Platelet Estimate Cons 12/13/16 07:49 Clumped Platelets Not Reportable 12/13/16 07:49 Plt Clumps, EDTA Not Reportable 12/13/16 07:49 Large Platelets Rare 12/13/16 07:49 Giant Platelets Not Reportable 12/13/16 07:49 Platelet Satelliting Not Reportable 12/13/16 07:49 Plt Morphology Comment Not Reportable 12/13/16 07:49 RBC Morphology Not Reportable 12/13/16 07:49 Dimorphic RBCs Not Reportable 12/13/16 07:49 Polychromasia Not Reportable 12/13/16 07:49 Hypochromasia 1+ 12/13/16 07:49 Poikilocytosis Not Reportable 12/13/16 07:49 Anisocytosis 1+ 12/13/16 07:49 Microcytosis Not Reportable 12/13/16 07:49 Macrocytosis Not Reportable 12/13/16 07:49 Spherocytes Not Reportable 12/13/16 07:49 Pappenheimer Bodies Not Reportable 12/13/16 07:49 Sickle Cells Not Reportable 12/13/16 07:49 Target Cells Few 12/13/16 07:49 Tear Drop Cells Not Reportable 12/13/16 07:49 Ovalocytes Not Reportable 12/13/16 07:49 Helmet Cells Not Reportable 12/13/16 07:49 Landers-Friend Bodies Not Reportable 12/13/16 07:49 [place] Rings Not Reportable 12/13/16 07:49 [place] Cells Not Reportable 12/13/16 07:49 Bite Cells Not Reportable 12/13/16 07:49 Crenated Cell Not Reportable 12/13/16 07:49 Elliptocytes Not Reportable 12/13/16 07:49 Acanthocytes (Spur) Not Reportable 12/13/16 07:49 Rouleaux Not Reportable 12/13/16 07:49 Hemoglobin C Crystals Not Reportable 12/13/16 07:49 Schistocytes Not Reportable 12/13/16 07:49 Malaria parasites Not Reportable 12/13/16 07:49 Percent Retic 0.23 % (0.78-2.58) L 12/09/16 11:29 Michael Bodies Not Reportable 12/13/16 07:49 Haptoglobin 271 mg/dL (43-212) H 12/08/16 21:30 Hem Pathologist Commnt No 12/13/16 07:49 PT 15.3 Sec. (12.2-14.9) H 12/08/16 19:00 INR 1.22 (0.87-1.13) H 12/08/16 19:00 APTT 36.2 Sec. (24.2-36.6) 12/08/16 19:00 Fibrinogen 563 mg/dl (211-480) H 12/08/16 19:00 D-Dimer 5507.36 ng/mlDDU (0-234) H 12/08/16 19:00 Heparin Anti-Xa, Unfract Negative (Negative) 12/09/16 13:27 POC ABG pH 7.326 (7.35-7.45) L 12/09/16 12:02 POC ABG pCO2 37.7 (35-45) 12/09/16 12:02 POC ABG pO2 115 (80-105) H 12/09/16 12:02 POC ABG HCO3 19.7 12/09/16 12:02 POC ABG Total CO2 21 12/09/16 12:02 POC ABG O2 Sat 98 12/09/16 12:02 POC ABG Base Excess -6 12/09/16 12:02 FiO2 30 % 12/09/16 12:02 Sodium 140 mmol/L (137-145) 12/18/16 05:50 Potassium 3.8 mmol/L (3.6-5.0) 12/18/16 05:50 Chloride 102.0 mmol/L (98-107) 12/18/16 05:50 Carbon Dioxide 17 mmol/L (22-30) L 12/18/16 05:50 Anion Gap 25 mmol/L 12/18/16 05:50 BUN 46 mg/dL (7-17) H 12/18/16 05:50 Creatinine 5.0 mg/dL (0.7-1.2) H 12/18/16 05:50 Estimated GFR 11 ml/min 12/18/16 05:50 BUN/Creatinine Ratio 9.20 % 12/18/16 05:50 Glucose 252 mg/dL (65-100) H 12/18/16 05:50 POC Glucose 349 (70-105) H 12/18/16 09:09 Lactic Acid 6.90 mmol/L (0.7-2.0) H* 12/07/16 07:30 Calcium 6.8 mg/dL (8.4-10.2) L 12/18/16 05:50 Phosphorus 4.20 mg/dL (2.5-4.5) 12/18/16 05:50 Magnesium 1.90 mg/dL (1.7-2.3) 12/11/16 04:30 Iron 15 ug/dL (37-170) L 12/09/16 13:27 TIBC 134 mcg/dL (250-450) L 12/09/16 13:27 Ferritin 360.1 ng/mL (13.0-400.0) 12/09/16 13:27 Total Bilirubin 1.40 mg/dL (0.1-1.2) H 12/07/16 21:35 Direct Bilirubin 0.9 mg/dL (0-0.2) H 12/07/16 21:35 Indirect Bilirubin 0.5 mg/dL 12/07/16 21:35 AST 94 units/L (5-40) H 12/07/16 21:35 ALT 142 units/L (7-56) H 12/07/16 21:35 Alkaline Phosphatase 249 units/L (35-129) H 12/07/16 21:35 Lactate Dehydrogenase 382 units/L (91-180) H 12/08/16 19:00 Total Creatine Kinase 123 units/L (30-135) 12/04/16 09:55 CK-MB (CK-2) 4.6 ng/mL (0.0-4.0) H 12/04/16 09:55 CK-MB (CK-2) Rel Index 3.7 (0-4) 12/04/16 09:55 Troponin T 0.140 ng/mL (0.00-0.029) H* D 12/04/16 09:55 C-Reactive Protein 39.40 mg/dL (0.00-1.30) H 12/07/16 06:00 Total Protein 4.6 g/dL (6.3-8.2) L D 12/07/16 21:35 Albumin 2.1 g/dL (3.9-5) L 12/07/16 21:35 Albumin/Globulin Ratio 0.8 % 12/07/16 21:35 Triglycerides 570 mg/dL (2-149) H 12/04/16 07:55 Cholesterol 221 mg/dL (50-199) H 12/04/16 07:55 LDL Cholesterol Direct TNR 12/04/16 07:55 HDL Cholesterol 37 mg/dL (40-59) L 12/04/16 07:55 Cholesterol/HDL Ratio 5.97 % 12/04/16 07:55 Vitamin B12 > 2000 pg/mL (211-911) H 12/09/16 13:27 Folate 8.10 ng/mL (7.3-26.0) 12/09/16 13:27 TSH 1.600 mlU/mL (0.270-4.200) 12/03/16 23:20 Urine Color Yellow (Yellow) 12/04/16 11:25 Urine Turbidity Slightly-cloudy (Clear) 12/04/16 11:25 Urine pH 5.0 (5.0-7.0) 12/04/16 11:25 Ur Specific [place] 1.018 (1.003-1.030) 12/04/16 11:25 Urine Protein 30 mg/dl mg/dL (Negative) 12/04/16 11:25 Urine Glucose (UA) >=500 mg/dL (Negative) 12/04/16 11:25 Urine Ketones Tr mg/dL (Negative) 12/04/16 11:25 Urine Blood Sm (Negative) 12/04/16 11:25 Urine Nitrite Neg (Negative) 12/04/16 11:25 Urine Bilirubin Neg (Negative) 12/04/16 11:25 Urine Urobilinogen < 2.0 mg/dL (<2.0) 12/04/16 11:25 Ur Leukocyte Esterase Neg (Negative) 12/04/16 11:25 Urine WBC (Auto) 4.0 /HPF (0.0-6.0) 12/04/16 11:25 Urine RBC (Auto) 2.0 /HPF (0.0-6.0) 12/04/16 11:25 U Epithel Cells (Auto) < 1.0 /HPF (0-13.0) 12/04/16 11:25 Urine Mucus Few /HPF 12/04/16 11:25 Urine Osmolality 419 Mosm/kg 12/04/16 11:25 Urine Creatinine 29.5 mg/dL (0.1-20.0) H 12/04/16 11:25 Protein/Creatinin Ratio 1.12 12/04/16 11:25 Urine Sodium 26 mEq/L 12/04/16 11:25 Urine Total Protein 33 mg/dL (5-11.8) H 12/04/16 11:25 Urine Opiates Screen Presumptive negative 12/04/16 11:25 Urine Methadone Screen Presumptive negative 12/04/16 11:25 Ur Barbiturates Screen Presumptive negative 12/04/16 11:25 Ur Phencyclidine Scrn Presumptive negative 12/04/16 11:25 Ur Amphetamines Screen Presumptive negative 12/04/16 11:25 U Benzodiazepines Scrn Presumptive negative 12/04/16 11:25 Urine Cocaine Screen Presumptive negative 12/04/16 11:25 U Marijuana (THC) Screen Presumptive positive 12/04/16 11:25 Drugs of Abuse Note Disclamer 12/04/16 11:25 Heparin-induced Plt Ab Weak positive (Negative) H 12/09/16 13:27 UF Heparin High Dose 0 % Release 12/09/16 13:27 ADRIENNE UFH Low Dose 0.1 0 % Release 12/09/16 13:27 ADRIENNE UFH Low Dose 0.5 0 % Release 12/09/16 13:27 Hep Bs Antigen Non-reactive (Negative) 12/09/16 13:27 Hep Bs Antibody, Quant <5 mIU/mL (>=10) L 12/09/16 13:27 Hep B Core Total Ab Nonreactive (Nonreactive) 12/09/16 13:27 Hepatitis C Antibody Non-reactive (NonReactive) 12/09/16 13:27 HIV 1&2 Antibody Rapid Non react (Non React) 12/09/16 13:27 HIV P24 Antigen Non react (Non React) 12/09/16 13:27 Schistocytes Smear None seen 12/09/16 11:29 Blood Type O POSITIVE 12/08/16 08:46 Antibody Screen TNR 12/08/16 08:46 ISAIAH Antibody Screen Negative 12/08/16 08:46 Crossmatch See Detail 12/08/16 08:46
[2016-12-18] MEDS: TYLENOL PO PRN (18:11)
[2016-12-19] MEDS: DILAUDID IV PRN ×3 (00:28→22:53)
[2016-12-19] MEDS: FLAGYL 500 MG/100 ML 500 MG/100 ML BAG IV SCH ×3 (00:33→16:31)
[2016-12-19] MEDS: REGLAN IV SCH ×3 (00:34→16:32)
[2016-12-19] MEDS: NOVOLOG SUB-Q SCH ×4 (08:31→22:55)
--- NOTE | 2016-12-19 11:07 | Progress Note ---
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 medical terminologist insulin use: D Qualified Code(s): E10.10 - Type 1 diabetes mellitus with ketoacidosis without coma Plan to address problem: Status post insulin drip, on sliding scale insulin, as per primary team (2) ESRD (end stage renal disease) on dialysis Current Visit: Yes Status: Acute Plan to address problem: Labs pending today Hemodialysis today for ultrafiltration and clearance with increased calcium bath Spoke with dialysis nurse about collecting labs prior to HD today, will follow up labs and adjust HD prescription if needed Status post Right Perm Catheter placement on 12/17/16 Assess need for HD on daily basis Epogen dosing during HD for anemia management Renally dose medications On levaquin and flagyl Case management consulted for outpatient dialysis placement [facility] [place] Obtain daily weight Strict intake and output Renal plan discussed with Dr Smart Continue supportive therapy (3) Hypertensive nephrosclerosis, stage 5 chronic kidney disease or end stage renal disease Current Visit: Yes Status: Acute Plan to address problem: Continue on current anti-hypertensive regimen (4) Anemia Current Visit: Yes Status: Acute Qualifiers: Anemia type: A Iron deficiency anemia type: I Vitamin B12 deficiency anemia type: V Folate deficiency anemia type: F Bone marrow failure anemia type: B Hemolytic anemia type: H Other causes of anemia: O Chronic kidney disease stage: C Plan to address problem: CBC pending today, yesterday's Hgb level was 7.3 Epogen dosing during HD for anemia management (5) Leukocytosis Current Visit: Yes Status: Acute Qualifiers: Leukocytosis type: L Plan to address problem: On levaquin and flagyl ID on board, follow up recs Subjective Date of service: 12/19/16 Principal diagnosis: Sepsis; Pneumonia Interval history: Patient reports having shortness of breath and nausea today, denies vomiting. No family at bedside. Objective - Vital Signs Vital signs: Vital Signs - 12hr 12/19/16 12/19/16 12/19/16 00:53 04:00 05:25 Temperature 98.9 F 98.2 F Pulse Rate 106 H Pulse Rate [ 111 H 104 H Right Radial] Respiratory 18 20 Rate Blood Pressure 135/77 123/79 [Right Arm] O2 Sat by Pulse 95 99 Oximetry 12/19/16 12/19/16 08:11 10:19 Temperature 98.8 F Pulse Rate Pulse Rate [ 112 H Right Radial] Respiratory 18 20 Rate Blood Pressure 144/85 [Right Arm] O2 Sat by Pulse 96 Oximetry - General Appearance General appearance: well-developed (no acute distress) EENT: ATNC Neck: no JVD Respiratory: Present: Other (Lung sounds decreased bilaterally, unlabored) Cardiology: regular, tachycardia, S1S2, other (Right Perm Catheter with dressing intact) Gastrointestinal: normoactive bowel sounds, no tenderness, no distended Integumentary: warm and dry Neurologic: alert and oriented x3 Musculoskeletal: other (trace edema to both lower extremities) Psychiatric: mood/affect appropriate, cooperative - Lab 12/18/16 05:50 12/18/16 05:50 Most recent lab results Calcium 6.8 mg/dL (8.4-10.2) L 12/18/16 05:50 Phosphorus 4.20 mg/dL (2.5-4.5) 12/18/16 05:50 Magnesium 1.90 mg/dL (1.7-2.3) 12/11/16 04:30 Urine Creatinine 29.5 mg/dL (0.1-20.0) H 12/04/16 11:25 Urine Sodium 26 mEq/L 12/04/16 11:25 Urine Total Protein 33 mg/dL (5-11.8) H 12/04/16 11:25
[2016-12-19] MEDS: PEPCID PO SCH (11:11)
[2016-12-19] MEDS: LOVENOX SUB-Q SCH (11:11)
[2016-12-19] MEDS: LOPRESSOR PO SCH ×2 (11:11→22:55)
[2016-12-19 12:01] LABS: Basophils % (Auto) 1.1 % (0.0-1.8); Eosinophils % (Auto) 1.1 % (0.0-4.3); Hematocrit 23.1 % (30.3-42.9); Hemoglobin 7.5 gm/dl (10.1-14.3); Mean Corpuscular HGB Conc 32 % (30-34); Mean Corpuscular Hemoglobin 29 pg (28-32); Mean Corpuscular Volume 89 fl (79-97); Platelet Count 258 K/mm3 (140-440); Red Cell Distribution Width 15.7 % (13.2-15.2); White Blood Count 13.7 K/mm3 (4.5-11.0)
[2016-12-19 12:14] LABS: BUN/Creatinine Ratio 6.87; Calcium 6.9 mg/dL (8.4-10.2); Chloride 98.8 mmol/L (98-107); Phosphorous 1.7 mg/dL (2.5-4.5); Potassium 3.5 mmol/L (3.6-5.0)
[2016-12-19] MEDS: LEVAQUIN 500MG/100ML 500 MG/100 ML BAG IV SCH (14:30)
--- NOTE | 2016-12-19 14:33 | Progress Note ---
Assessment and Plan Assessment and plan: Cardiac arrest with V. fib - Likely from hyperkalemia, currently patient is stable - Was treated with amiodarone ARF, ATN - Nephrology is following, she is going to continue hemodialysis Acute hypoxic respiratory failure extubated - Resolved Cardiac arrest was STEMI - Cardiology is following - Resolved DKA: - resolved - On sliding insulin Metabolic Acidosis - On bicarbonate - resolved Acute metabolic encephalopathy - resolved Leukocytosis +GNR in trach aspirate, pseudomonas aeruginosa - On levaquin and Flagyl - ID is following -DVT prophylaxis: SCDs only due to recent SAH Thrombocytopenia - Resolved Acute on chronic anemia of chronic disease s/p 2 unit of prbc, monitoring closely - Hemoglobin is 7.3 Depression - Psych consulted and recommend O/P mental health follow up. Disposition - Patient needs O/P dialysis set up. History Interval history: Patient was seen and evaluated this morning, patient is not in pain or in distress. Hospitalist Physical - Physical exam Narrative exam: Not in cardiopulmonary distress. The patient appeared well nourished and normally developed. Vital signs as documented. Head exam is unremarkable. No scleral icterus . Neck is without jugular venous distension, thyromegaly, or carotid bruits. Lungs are clear to auscultation. Cardiac exam reveals regular rate and Rhythm. First and second heart sounds normal. No murmurs, rubs or gallops. Abdominal exam reveals normal bowel sounds, no masses, no organomegaly and no aortic enlargement. Extremities are nonedematous and both femoral and pedal pulses are normal. PROFILER HAND: Alert and oriented 3. No focal weakness. - Constitutional Vitals: Temp Pulse Resp BP Pulse Ox 98.0 F 110 H 18 176/96 97 12/19/16 11:42 12/19/16 11:42 12/19/16 11:42 12/19/16 11:42 12/19/16 11:42 General appearance: Present: no acute distress (resting comfortably) Results - Labs CBC & Chem 7: 12/19/16 10:23 12/19/16 10:23 Labs: Laboratory Last Values WBC 13.7 K/mm3 (4.5-11.0) H 12/19/16 10:23 RBC 2.60 M/mm3 (3.65-5.03) L 12/19/16 10:23 Hgb 7.5 gm/dl (10.1-14.3) L 12/19/16 10:23 Hct 23.1 % (30.3-42.9) L 12/19/16 10:23 MCV 89 fl (79-97) 12/19/16 10:23 MCH 29 pg (28-32) 12/19/16 10:23 MCHC 32 % (30-34) 12/19/16 10:23 RDW 15.7 % (13.2-15.2) H 12/19/16 10:23 Plt Count 258 K/mm3 (140-440) 12/19/16 10:23 Lymph % (Auto) 9.1 % (13.4-35.0) L 12/19/16 10:23 Gillespie % (Auto) 6.5 % (0.0-7.3) 12/19/16 10:23 Eos % (Auto) 1.1 % (0.0-4.3) 12/19/16 10:23 Baso % (Auto) 1.1 % (0.0-1.8) 12/19/16 10:23 Lymph # 1.3 K/mm3 (1.2-5.4) 12/19/16 10:23 Gillespie # 0.9 K/mm3 (0.0-0.8) H 12/19/16 10:23 Eos # 0.1 K/mm3 (0.0-0.4) 12/19/16 10:23 Baso # 0.1 K/mm3 (0.0-0.1) 12/19/16 10:23 Add Manual Diff Complete 12/13/16 07:49 Total Counted 100 12/13/16 07:49 Seg Neutrophils % 82.2 % (40.0-70.0) H 12/19/16 10:23 Seg Neuts % (Manual) 89.0 % (40.0-70.0) H 12/13/16 07:49 Band Neutrophils % 1.0 % 12/13/16 07:49 Lymphocytes % (Manual) 7.0 % (13.4-35.0) L 12/13/16 07:49 Reactive Lymphs % (Man) 0 % 12/13/16 07:49 Monocytes % (Manual) 3.0 % (0.0-7.3) 12/13/16 07:49 Eosinophils % (Manual) 0 % (0.0-4.3) 12/13/16 07:49 Basophils % (Manual) 0 % (0.0-1.8) 12/13/16 07:49 Metamyelocytes % 0 % 12/13/16 07:49 Myelocytes % 0 % 12/13/16 07:49 Promyelocytes % 0 % 12/13/16 07:49 Blast Cells % 0 % 12/13/16 07:49 Nucleated RBC % Not Reportable 12/13/16 07:49 Seg Neutrophils # 11.3 K/mm3 (1.8-7.7) H 12/19/16 10:23 Seg Neutrophils # Man 21.4 K/mm3 (1.8-7.7) H 12/13/16 07:49 Band Neutrophils # 0.2 K/mm3 12/13/16 07:49 Lymphocytes # (Manual) 1.7 K/mm3 (1.2-5.4) 12/13/16 07:49 Abs React Lymphs (Man) 0.0 K/mm3 12/13/16 07:49 Monocytes # (Manual) 0.7 K/mm3 (0.0-0.8) 12/13/16 07:49 Eosinophils # (Manual) 0.0 K/mm3 (0.0-0.4) 12/13/16 07:49 Basophils # (Manual) 0.0 K/mm3 (0.0-0.1) 12/13/16 07:49 Metamyelocytes # 0.0 K/mm3 12/13/16 07:49 Myelocytes # 0.0 K/mm3 12/13/16 07:49 Promyelocytes # 0.0 K/mm3 12/13/16 07:49 Blast Cells # 0.0 K/mm3 12/13/16 07:49 WBC Morphology Not Reportable 12/13/16 07:49 Hypersegmented Neuts Not Reportable 12/13/16 07:49 Hyposegmented Neuts Not Reportable 12/13/16 07:49 Hypogranular Neuts Not Reportable 12/13/16 07:49 Smudge Cells Not Reportable 12/13/16 07:49 Toxic Granulation Not Reportable 12/13/16 07:49 Toxic Vacuolation Not Reportable 12/13/16 07:49 Dohle Bodies Not Reportable 12/13/16 07:49 Pelger-Huet Anomaly Not Reportable 12/13/16 07:49 Mary Rods Not Reportable 12/13/16 07:49 Platelet Estimate Cons 12/13/16 07:49 Clumped Platelets Not Reportable 12/13/16 07:49 Plt Clumps, EDTA Not Reportable 12/13/16 07:49 Large Platelets Rare 12/13/16 07:49 Giant Platelets Not Reportable 12/13/16 07:49 Platelet Satelliting Not Reportable 12/13/16 07:49 Plt Morphology Comment Not Reportable 12/13/16 07:49 RBC Morphology Not Reportable 12/13/16 07:49 Dimorphic RBCs Not Reportable 12/13/16 07:49 Polychromasia Not Reportable 12/13/16 07:49 Hypochromasia 1+ 12/13/16 07:49 Poikilocytosis Not Reportable 12/13/16 07:49 Anisocytosis 1+ 12/13/16 07:49 Microcytosis Not Reportable 12/13/16 07:49 Macrocytosis Not Reportable 12/13/16 07:49 Spherocytes Not Reportable 12/13/16 07:49 Pappenheimer Bodies Not Reportable 12/13/16 07:49 Sickle Cells Not Reportable 12/13/16 07:49 Target Cells Few 12/13/16 07:49 Tear Drop Cells Not Reportable 12/13/16 07:49 Ovalocytes Not Reportable 12/13/16 07:49 Helmet Cells Not Reportable 12/13/16 07:49 Landers-Hines Bodies Not Reportable 12/13/16 07:49 [place] Rings Not Reportable 12/13/16 07:49 [place] Cells Not Reportable 12/13/16 07:49 Bite Cells Not Reportable 12/13/16 07:49 Crenated Cell Not Reportable 12/13/16 07:49 Elliptocytes Not Reportable 12/13/16 07:49 Acanthocytes (Spur) Not Reportable 12/13/16 07:49 Rouleaux Not Reportable 12/13/16 07:49 Hemoglobin C Crystals Not Reportable 12/13/16 07:49 Schistocytes Not Reportable 12/13/16 07:49 Malaria parasites Not Reportable 12/13/16 07:49 Percent Retic 0.23 % (0.78-2.58) L 12/09/16 11:29 Michael Bodies Not Reportable 12/13/16 07:49 Haptoglobin 271 mg/dL (43-212) H 12/08/16 21:30 Hem Pathologist Commnt No 12/13/16 07:49 PT 15.3 Sec. (12.2-14.9) H 12/08/16 19:00 INR 1.22 (0.87-1.13) H 12/08/16 19:00 APTT 36.2 Sec. (24.2-36.6) 12/08/16 19:00 Fibrinogen 563 mg/dl (211-480) H 12/08/16 19:00 D-Dimer 5507.36 ng/mlDDU (0-234) H 12/08/16 19:00 Heparin Anti-Xa, Unfract Negative (Negative) 12/09/16 13:27 POC ABG pH 7.326 (7.35-7.45) L 12/09/16 12:02 POC ABG pCO2 37.7 (35-45) 12/09/16 12:02 POC ABG pO2 115 (80-105) H 12/09/16 12:02 POC ABG HCO3 19.7 12/09/16 12:02 POC ABG Total CO2 21 12/09/16 12:02 POC ABG O2 Sat 98 12/09/16 12:02 POC ABG Base Excess -6 12/09/16 12:02 FiO2 30 % 12/09/16 12:02 Sodium 139 mmol/L (137-145) 12/19/16 10:23 Potassium 3.5 mmol/L (3.6-5.0) L 12/19/16 10:23 Chloride 98.8 mmol/L (98-107) 12/19/16 10:23 Carbon Dioxide 14 mmol/L (22-30) L 12/19/16 10:23 Anion Gap 30 mmol/L 12/19/16 10:23 BUN 22 mg/dL (7-17) H 12/19/16 10:23 Creatinine 3.2 mg/dL (0.7-1.2) H 12/19/16 10:23 Estimated GFR 19 ml/min 12/19/16 10:23 BUN/Creatinine Ratio 6.87 % 12/19/16 10:23 Glucose 446 mg/dL (65-100) H 12/19/16 10:23 POC Glucose 316 (70-105) H 12/18/16 21:14 Lactic Acid 6.90 mmol/L (0.7-2.0) H* 12/07/16 07:30 Calcium 6.9 mg/dL (8.4-10.2) L 12/19/16 10:23 Phosphorus 1.70 mg/dL (2.5-4.5) L D 12/19/16 10:23 Magnesium 1.90 mg/dL (1.7-2.3) 12/11/16 04:30 Iron 15 ug/dL (37-170) L 12/09/16 13:27 TIBC 134 mcg/dL (250-450) L 12/09/16 13:27 Ferritin 360.1 ng/mL (13.0-400.0) 12/09/16 13:27 Total Bilirubin 1.40 mg/dL (0.1-1.2) H 12/07/16 21:35 Direct Bilirubin 0.9 mg/dL (0-0.2) H 12/07/16 21:35 Indirect Bilirubin 0.5 mg/dL 12/07/16 21:35 AST 94 units/L (5-40) H 12/07/16 21:35 ALT 142 units/L (7-56) H 12/07/16 21:35 Alkaline Phosphatase 249 units/L (35-129) H 12/07/16 21:35 Lactate Dehydrogenase 382 units/L (91-180) H 12/08/16 19:00 Total Creatine Kinase 123 units/L (30-135) 12/04/16 09:55 CK-MB (CK-2) 4.6 ng/mL (0.0-4.0) H 12/04/16 09:55 CK-MB (CK-2) Rel Index 3.7 (0-4) 12/04/16 09:55 Troponin T 0.140 ng/mL (0.00-0.029) H* D 12/04/16 09:55 C-Reactive Protein 39.40 mg/dL (0.00-1.30) H 12/07/16 06:00 Total Protein 4.6 g/dL (6.3-8.2) L D 12/07/16 21:35 Albumin 2.1 g/dL (3.9-5) L 12/07/16 21:35 Albumin/Globulin Ratio 0.8 % 12/07/16 21:35 Triglycerides 570 mg/dL (2-149) H 12/04/16 07:55 Cholesterol 221 mg/dL (50-199) H 12/04/16 07:55 LDL Cholesterol Direct TNR 12/04/16 07:55 HDL Cholesterol 37 mg/dL (40-59) L 12/04/16 07:55 Cholesterol/HDL Ratio 5.97 % 12/04/16 07:55 Vitamin B12 > 2000 pg/mL (211-911) H 12/09/16 13:27 Folate 8.10 ng/mL (7.3-26.0) 12/09/16 13:27 TSH 1.600 mlU/mL (0.270-4.200) 12/03/16 23:20 Urine Color Yellow (Yellow) 12/04/16 11:25 Urine Turbidity Slightly-cloudy (Clear) 12/04/16 11:25 Urine pH 5.0 (5.0-7.0) 12/04/16 11:25 Ur Specific [place] 1.018 (1.003-1.030) 12/04/16 11:25 Urine Protein 30 mg/dl mg/dL (Negative) 12/04/16 11:25 Urine Glucose (UA) >=500 mg/dL (Negative) 12/04/16 11:25 Urine Ketones Tr mg/dL (Negative) 12/04/16 11:25 Urine Blood Sm (Negative) 12/04/16 11:25 Urine Nitrite Neg (Negative) 12/04/16 11:25 Urine Bilirubin Neg (Negative) 12/04/16 11:25 Urine Urobilinogen < 2.0 mg/dL (<2.0) 12/04/16 11:25 Ur Leukocyte Esterase Neg (Negative) 12/04/16 11:25 Urine WBC (Auto) 4.0 /HPF (0.0-6.0) 12/04/16 11:25 Urine RBC (Auto) 2.0 /HPF (0.0-6.0) 12/04/16 11:25 U Epithel Cells (Auto) < 1.0 /HPF (0-13.0) 12/04/16 11:25 Urine Mucus Few /HPF 12/04/16 11:25 Urine Osmolality 419 Mosm/kg 12/04/16 11:25 Urine Creatinine 29.5 mg/dL (0.1-20.0) H 12/04/16 11:25 Protein/Creatinin Ratio 1.12 12/04/16 11:25 Urine Sodium 26 mEq/L 12/04/16 11:25 Urine Total Protein 33 mg/dL (5-11.8) H 12/04/16 11:25 Urine Opiates Screen Presumptive negative 12/04/16 11:25 Urine Methadone Screen Presumptive negative 12/04/16 11:25 Ur Barbiturates Screen Presumptive negative 12/04/16 11:25 Ur Phencyclidine Scrn Presumptive negative 12/04/16 11:25 Ur Amphetamines Screen Presumptive negative 12/04/16 11:25 U Benzodiazepines Scrn Presumptive negative 12/04/16 11:25 Urine Cocaine Screen Presumptive negative 12/04/16 11:25 U Marijuana (THC) Screen Presumptive positive 12/04/16 11:25 Drugs of Abuse Note Disclamer 12/04/16 11:25 Heparin-induced Plt Ab Weak positive (Negative) H 12/09/16 13:27 UF Heparin High Dose 0 % Release 12/09/16 13:27 ADRIENNE UFH Low Dose 0.1 0 % Release 12/09/16 13:27 ADRIENNE UFH Low Dose 0.5 0 % Release 12/09/16 13:27 Hep Bs Antigen Non-reactive (Negative) 12/09/16 13:27 Hep Bs Antibody, Quant <5 mIU/mL (>=10) L 12/09/16 13:27 Hep B Core Total Ab Nonreactive (Nonreactive) 12/09/16 13:27 Hepatitis C Antibody Non-reactive (NonReactive) 12/09/16 13:27 HIV 1&2 Antibody Rapid Non react (Non React) 12/09/16 13:27 HIV P24 Antigen Non react (Non React) 12/09/16 13:27 Schistocytes Smear None seen 12/09/16 11:29 Blood Type O POSITIVE 12/08/16 08:46 Antibody Screen TNR 12/08/16 08:46 ISAIAH Antibody Screen Negative 12/08/16 08:46 Crossmatch See Detail 12/08/16 08:46
--- NOTE | 2016-12-19 16:04 | Progress Note ---
Assessment and Plan - Patient Problems (1) Severe sepsis Current Visit: Yes Status: Deleted Plan to address problem: - resolved - complete AB's per ID recs (2) Cardiac arrest Current Visit: Yes Status: Acute Plan to address problem: - achieved ROSC and no recurrence (3) Acute renal failure Current Visit: No Status: Acute Qualifiers: Acute renal failure type: A Plan to address problem: - remains on dialysis and appears ESRD - s/p permacath placement - per nephrology otherwise (4) Acute respiratory failure with hypoxemia Current Visit: No Status: Acute Plan to address problem: - improved - continue to wean oxygen for sats > 94% - will need bronchoscopy if pneumonia does not resolve over 4-6 weeks - grew pseudomonas and appropriately treated with clinical improvement (5) DKA (diabetic ketoacidoses) Current Visit: Yes Status: Acute Qualifiers: Diabetes mellitus type: type 1 Diabetes mellitus complication detail: without coma Diabetes mellitus intermediate frame tender insulin use: D Qualified Code(s): E10.10 - Type 1 diabetes mellitus with ketoacidosis without coma Plan to address problem: - resolved - continue SSI - on 70/30 insulin (6) Anemia Current Visit: Yes Status: Acute Qualifiers: Anemia type: A Iron deficiency anemia type: I Vitamin B12 deficiency anemia type: V Folate deficiency anemia type: F Bone marrow failure anemia type: B Hemolytic anemia type: H Other causes of anemia: O Chronic kidney disease stage: C Plan to address problem: - multifactorial - continue to treat azotemia - full w/up per attending (7) Discharge planning issues Current Visit: No Status: Acute Plan to address problem: - awaits outpatient dialysis set-up ...will re-evaluate in am & prn Subjective Date of service: 12/19/16 Principal diagnosis: Sepsis; Pneumonia; ASHELY on dialysis; Diabetes Interval history: Seen and examined at bedside; 24 hour events reviewed; nursing and respiratory care staff consulted; no adverse overnight events reported to me; resting peacefully in bed; denies acute chest pains or increased SOB; No N/V/F/C Objective Vital Signs - 12hr 12/19/16 12/19/16 12/19/16 05:25 08:11 10:19 Temperature 98.2 F 98.8 F Pulse Rate [ 104 H 112 H Right Radial] Respiratory 20 18 20 Rate Blood Pressure 123/79 144/85 [Right Arm] O2 Sat by Pulse 99 96 Oximetry 12/19/16 11:42 Temperature 98.0 F Pulse Rate [ 110 H Right Radial] Respiratory 18 Rate Blood Pressure 176/96 [Right Arm] O2 Sat by Pulse 97 Oximetry Constitutional: no acute distress, alert Eyes: non-icteric ENT: oropharynx moist Neck: supple, no lymphadenopathy Effort: normal Ascultation: Bilateral: diminished breath sounds, rales (R>L lungs) Cardiovascular: regular rate and rhythm Gastrointestinal: normoactive bowel sounds, soft, non-tender, non-distended Integumentary: normal Extremities: no cyanosis, no edema, pulses normal, no ischemia or petechiae Neurologic: normal mental status, non-focal exam, pupils equal and round, motor strength normal and Psychiatric: mood appropriate, affect normal CBC and BMP: 01/02/17 05:10 01/02/17 05:10 ABG, PT/INR, D-dimer: ABG POC ABG pH 7.326 (7.35-7.45) L 12/09/16 12:02 POC ABG pCO2 37.7 (35-45) 12/09/16 12:02 POC ABG pO2 115 (80-105) H 12/09/16 12:02 POC ABG HCO3 19.7 12/09/16 12:02 POC ABG Total CO2 21 12/09/16 12:02 POC ABG O2 Sat 98 12/09/16 12:02 PT/INR, D-dimer PT 15.3 Sec. (12.2-14.9) H 12/08/16 19:00 INR 1.22 (0.87-1.13) H 12/08/16 19:00 D-Dimer 5507.36 ng/mlDDU (0-234) H 12/08/16 19:00 Abnormal lab findings: Abnormal Labs 12/04/16 12/04/16 12/04/16 01:19 01:36 02:21 WBC RBC Hgb Hct MCV MCHC RDW Plt Count Lymph % (Auto) [place] # Seg Neutrophils % Seg Neuts % (Manual) Lymphocytes % (Manual) Monocytes % (Manual) Nucleated RBC % Seg Neutrophils # Seg Neutrophils # Man Lymphocytes # (Manual) Monocytes # (Manual) Percent Retic Haptoglobin PT INR Fibrinogen D-Dimer POC ABG pH 6.759 L POC ABG pCO2 POC ABG pO2 437 H Sodium Potassium Chloride Carbon Dioxide BUN Creatinine Glucose POC Glucose > 500 H Lactic Acid Calcium Phosphorus 15.70 H Magnesium 4.30 H Iron TIBC Total Bilirubin Direct Bilirubin AST ALT Alkaline Phosphatase Lactate Dehydrogenase CK-MB (CK-2) Troponin T C-Reactive Protein Total Protein Albumin Triglycerides Cholesterol HDL Cholesterol Vitamin B12 Urine Creatinine Urine Total Protein Heparin-induced Plt Ab Hep Bs Antibody, Quant Crossmatch 12/04/16 12/04/16 12/04/16 03:55 04:00 05:11 WBC RBC Hgb Hct MCV MCHC RDW Plt Count Lymph % (Auto) [place] # Seg Neutrophils % Seg Neuts % (Manual) Lymphocytes % (Manual) Monocytes % (Manual) Nucleated RBC % Seg Neutrophils # Seg Neutrophils # Man Lymphocytes # (Manual) Monocytes # (Manual) Percent Retic Haptoglobin PT INR Fibrinogen D-Dimer POC ABG pH POC ABG pCO2 POC ABG pO2 Sodium Potassium Chloride 91.4 L Carbon Dioxide 8 L* BUN 55 H Creatinine 2.8 H Glucose 1610 H* POC Glucose > 500 H > 500 H Lactic Acid Calcium Phosphorus Magnesium Iron TIBC Total Bilirubin Direct Bilirubin AST ALT Alkaline Phosphatase Lactate Dehydrogenase CK-MB (CK-2) Troponin T C-Reactive Protein Total Protein Albumin Triglycerides Cholesterol HDL Cholesterol Vitamin B12 Urine Creatinine Urine Total Protein Heparin-induced Plt Ab Hep Bs Antibody, Quant Crossmatch 12/04/16 12/04/16 12/04/16 05:40 05:54 06:58 WBC RBC Hgb Hct MCV MCHC RDW Plt Count Lymph % (Auto) [place] # Seg Neutrophils % Seg Neuts % (Manual) Lymphocytes % (Manual) Monocytes % (Manual) Nucleated RBC % Seg Neutrophils # Seg Neutrophils # Man Lymphocytes # (Manual) Monocytes # (Manual) Percent Retic Haptoglobin PT INR Fibrinogen D-Dimer POC ABG pH 7.154 L POC ABG pCO2 27.5 L POC ABG pO2 111 H Sodium Potassium Chloride Carbon Dioxide BUN Creatinine Glucose POC Glucose > 500 H > 500 H Lactic Acid Calcium Phosphorus Magnesium Iron TIBC Total Bilirubin Direct Bilirubin AST ALT Alkaline Phosphatase Lactate Dehydrogenase CK-MB (CK-2) Troponin T C-Reactive Protein Total Protein Albumin Triglycerides Cholesterol HDL Cholesterol Vitamin B12 Urine Creatinine Urine Total Protein Heparin-induced Plt Ab Hep Bs Antibody, Quant Crossmatch 12/04/16 12/04/16 12/04/16 07:49 07:55 07:55 WBC RBC Hgb Hct MCV MCHC RDW Plt Count Lymph % (Auto) [place] # Seg Neutrophils % Seg Neuts % (Manual) Lymphocytes % (Manual) Monocytes % (Manual) Nucleated RBC % Seg Neutrophils # Seg Neutrophils # Man Lymphocytes # (Manual) Monocytes # (Manual) Percent Retic Haptoglobin PT INR Fibrinogen D-Dimer POC ABG pH POC ABG pCO2 POC ABG pO2 Sodium Potassium 3.3 L Chloride Carbon Dioxide 9 L* BUN 53 H Creatinine 2.9 H Glucose 1229 H* POC Glucose > 500 H Lactic Acid Calcium Phosphorus Magnesium Iron TIBC Total Bilirubin Direct Bilirubin AST ALT Alkaline Phosphatase Lactate Dehydrogenase CK-MB (CK-2) Troponin T 0.111 H* D C-Reactive Protein Total Protein Albumin Triglycerides 570 H Cholesterol 221 H HDL Cholesterol 37 L Vitamin B12 Urine Creatinine Urine Total Protein Heparin-induced Plt Ab Hep Bs Antibody, Quant Crossmatch 12/04/16 12/04/16 12/04/16 07:55 09:55 09:55 WBC RBC 2.90 L Hgb 8.5 L Hct 30.2 L D MCV 105 H D MCHC 28 L RDW 19.2 H Plt Count Lymph % (Auto) [place] # Seg Neutrophils % Seg Neuts % (Manual) Lymphocytes % (Manual) 11.0 L Monocytes % (Manual) Nucleated RBC % Seg Neutrophils # Seg Neutrophils # Man Lymphocytes # (Manual) 0.6 L Monocytes # (Manual) Percent Retic Haptoglobin PT INR Fibrinogen D-Dimer POC ABG pH POC ABG pCO2 POC ABG pO2 Sodium Potassium 3.1 L Chloride Carbon Dioxide 7 L* BUN 51 H Creatinine 3.2 H Glucose 969 H* POC Glucose Lactic Acid Calcium 10.4 H D Phosphorus Magnesium Iron TIBC Total Bilirubin Direct Bilirubin AST ALT Alkaline Phosphatase Lactate Dehydrogenase CK-MB (CK-2) 4.6 H Troponin T 0.140 H* D C-Reactive Protein Total Protein Albumin Triglycerides Cholesterol HDL Cholesterol Vitamin B12 Urine Creatinine Urine Total Protein Heparin-induced Plt Ab Hep Bs Antibody, Quant Crossmatch 12/04/16 12/04/16 12/04/16 09:55 10:37 11:25 WBC RBC Hgb Hct MCV MCHC RDW Plt Count Lymph % (Auto) [place] # Seg Neutrophils % Seg Neuts % (Manual) Lymphocytes % (Manual) Monocytes % (Manual) Nucleated RBC % Seg Neutrophils # Seg Neutrophils # Man Lymphocytes # (Manual) Monocytes # (Manual) Percent Retic Haptoglobin PT INR Fibrinogen D-Dimer POC ABG pH 7.215 L POC ABG pCO2 18.8 L POC ABG pO2 193 H Sodium Potassium Chloride Carbon Dioxide BUN Creatinine Glucose POC Glucose Lactic Acid Calcium Phosphorus Magnesium 3.70 H Iron TIBC Total Bilirubin Direct Bilirubin AST ALT Alkaline Phosphatase Lactate Dehydrogenase CK-MB (CK-2) Troponin T C-Reactive Protein Total Protein Albumin Triglycerides Cholesterol HDL Cholesterol Vitamin B12 Urine Creatinine 29.5 H Urine Total Protein 33 H Heparin-induced Plt Ab Hep Bs Antibody, Quant Crossmatch 12/04/16 12/04/16 12/04/16 12:00 12:48 13:00 WBC RBC Hgb Hct MCV MCHC RDW Plt Count Lymph % (Auto) [place] # Seg Neutrophils % Seg Neuts % (Manual) Lymphocytes % (Manual) Monocytes % (Manual) Nucleated RBC % Seg Neutrophils # Seg Neutrophils # Man Lymphocytes # (Manual) Monocytes # (Manual) Percent Retic Haptoglobin PT INR Fibrinogen D-Dimer POC ABG pH POC ABG pCO2 POC ABG pO2 Sodium 149 H 150 H Potassium 3.2 L 3.2 L Chloride 109.1 H Carbon Dioxide 8 L* 8 L* BUN 52 H 49 H Creatinine 3.4 H 3.1 H Glucose 723 H* 574 H* POC Glucose Lactic Acid 18.80 H* Calcium Phosphorus Magnesium Iron TIBC Total Bilirubin Direct Bilirubin AST ALT Alkaline Phosphatase Lactate Dehydrogenase CK-MB (CK-2) Troponin T C-Reactive Protein Total Protein Albumin Triglycerides Cholesterol HDL Cholesterol Vitamin B12 Urine Creatinine Urine Total Protein Heparin-induced Plt Ab Hep Bs Antibody, Quant Crossmatch 12/04/16 12/04/16 12/04/16 13:01 14:41 16:06 WBC RBC Hgb Hct MCV MCHC RDW Plt Count Lymph % (Auto) [place] # Seg Neutrophils % Seg Neuts % (Manual) Lymphocytes % (Manual) Monocytes % (Manual) Nucleated RBC % Seg Neutrophils # Seg Neutrophils # Man Lymphocytes # (Manual) Monocytes # (Manual) Percent Retic Haptoglobin PT INR Fibrinogen D-Dimer POC ABG pH POC ABG pCO2 POC ABG pO2 Sodium 151 H Potassium 3.2 L Chloride 108.1 H Carbon Dioxide 10 L BUN 49 H Creatinine 3.0 H Glucose 383 H POC Glucose 292 H Lactic Acid Calcium Phosphorus Magnesium Iron TIBC Total Bilirubin Direct Bilirubin AST ALT Alkaline Phosphatase Lactate Dehydrogenase CK-MB (CK-2) Troponin T C-Reactive Protein 3.50 H Total Protein Albumin Triglycerides Cholesterol HDL Cholesterol Vitamin B12 Urine Creatinine Urine Total Protein Heparin-induced Plt Ab Hep Bs Antibody, Quant Crossmatch 12/04/16 12/04/16 12/04/16 17:15 17:25 18:07 WBC RBC Hgb Hct MCV MCHC RDW Plt Count Lymph % (Auto) [place] # Seg Neutrophils % Seg Neuts % (Manual) Lymphocytes % (Manual) Monocytes % (Manual) Nucleated RBC % Seg Neutrophils # Seg Neutrophils # Man Lymphocytes # (Manual) Monocytes # (Manual) Percent Retic Haptoglobin PT INR Fibrinogen D-Dimer POC ABG pH 7.255 L POC ABG pCO2 16.9 L POC ABG pO2 169 H Sodium Potassium Chloride Carbon Dioxide BUN Creatinine Glucose POC Glucose 246 H Lactic Acid 18.50 H* Calcium Phosphorus Magnesium Iron TIBC Total Bilirubin Direct Bilirubin AST ALT Alkaline Phosphatase Lactate Dehydrogenase CK-MB (CK-2) Troponin T C-Reactive Protein Total Protein Albumin Triglycerides Cholesterol HDL Cholesterol Vitamin B12 Urine Creatinine Urine Total Protein Heparin-induced Plt Ab Hep Bs Antibody, Quant Crossmatch 12/04/16 12/04/16 12/04/16 19:34 20:31 21:15 WBC RBC Hgb Hct MCV MCHC RDW Plt Count Lymph % (Auto) [place] # Seg Neutrophils % Seg Neuts % (Manual) Lymphocytes % (Manual) Monocytes % (Manual) Nucleated RBC % Seg Neutrophils # Seg Neutrophils # Man Lymphocytes # (Manual) Monocytes # (Manual) Percent Retic Haptoglobin PT INR Fibrinogen D-Dimer POC ABG pH POC ABG pCO2 POC ABG pO2 Sodium Potassium Chloride Carbon Dioxide BUN Creatinine Glucose POC Glucose 189 H 126 H 139 H Lactic Acid Calcium Phosphorus Magnesium Iron TIBC Total Bilirubin Direct Bilirubin AST ALT Alkaline Phosphatase Lactate Dehydrogenase CK-MB (CK-2) Troponin T C-Reactive Protein Total Protein Albumin Triglycerides Cholesterol HDL Cholesterol Vitamin B12 Urine Creatinine Urine Total Protein Heparin-induced Plt Ab Hep Bs Antibody, Quant Crossmatch 12/04/16 12/04/16 12/04/16 21:25 22:37 23:35 WBC RBC Hgb Hct MCV MCHC RDW Plt Count Lymph % (Auto) [place] # Seg Neutrophils % Seg Neuts % (Manual) Lymphocytes % (Manual) Monocytes % (Manual) Nucleated RBC % Seg Neutrophils # Seg Neutrophils # Man Lymphocytes # (Manual) Monocytes # (Manual) Percent Retic Haptoglobin PT INR Fibrinogen D-Dimer POC ABG pH 7.294 L POC ABG pCO2 16.7 L POC ABG pO2 169 H Sodium Potassium Chloride Carbon Dioxide BUN Creatinine Glucose POC Glucose 131 H 106 H Lactic Acid Calcium Phosphorus Magnesium Iron TIBC Total Bilirubin Direct Bilirubin AST ALT Alkaline Phosphatase Lactate Dehydrogenase CK-MB (CK-2) Troponin T C-Reactive Protein Total Protein Albumin Triglycerides Cholesterol HDL Cholesterol Vitamin B12 Urine Creatinine Urine Total Protein Heparin-induced Plt Ab Hep Bs Antibody, Quant Crossmatch 12/05/16 12/05/16 12/05/16 02:40 02:50 02:50 WBC RBC Hgb Hct MCV MCHC RDW Plt Count Lymph % (Auto) [place] # Seg Neutrophils % Seg Neuts % (Manual) Lymphocytes % (Manual) Monocytes % (Manual) Nucleated RBC % Seg Neutrophils # Seg Neutrophils # Man Lymphocytes # (Manual) Monocytes # (Manual) Percent Retic Haptoglobin PT INR Fibrinogen D-Dimer POC ABG pH POC ABG pCO2 POC ABG pO2 Sodium 151 H Potassium Chloride 113.8 H Carbon Dioxide 12 L BUN 46 H Creatinine 3.2 H Glucose 165 H POC Glucose 109 H Lactic Acid 9.80 H* Calcium 8.3 L Phosphorus Magnesium Iron TIBC Total Bilirubin Direct Bilirubin AST ALT Alkaline Phosphatase Lactate Dehydrogenase CK-MB (CK-2) Troponin T C-Reactive Protein Total Protein Albumin Triglycerides Cholesterol HDL Cholesterol Vitamin B12 Urine Creatinine Urine Total Protein Heparin-induced Plt Ab Hep Bs Antibody, Quant Crossmatch 12/05/16 12/05/16 12/05/16 04:01 04:30 04:30 WBC 19.1 H RBC 2.91 L Hgb 8.0 L Hct 25.4 L MCV MCHC RDW 17.8 H Plt Count Lymph % (Auto) [place] # Seg Neutrophils % Seg Neuts % (Manual) 17.0 L Lymphocytes % (Manual) 7.0 L Monocytes % (Manual) Nucleated RBC % 3.0 H Seg Neutrophils # Seg Neutrophils # Man Lymphocytes # (Manual) Monocytes # (Manual) Percent Retic Haptoglobin PT INR Fibrinogen D-Dimer POC ABG pH POC ABG pCO2 POC ABG pO2 Sodium 152 H Potassium Chloride 113.5 H Carbon Dioxide 12 L BUN 47 H Creatinine 3.2 H Glucose 133 H POC Glucose 179 H Lactic Acid Calcium 8.3 L Phosphorus 1.00 L D Magnesium Iron TIBC Total Bilirubin Direct Bilirubin AST ALT Alkaline Phosphatase Lactate Dehydrogenase CK-MB (CK-2) Troponin T C-Reactive Protein Total Protein Albumin Triglycerides Cholesterol HDL Cholesterol Vitamin B12 Urine Creatinine Urine Total Protein Heparin-induced Plt Ab Hep Bs Antibody, Quant Crossmatch 12/05/16 12/05/16 12/05/16 05:32 08:01 08:48 WBC RBC Hgb Hct MCV MCHC RDW Plt Count Lymph % (Auto) [place] # Seg Neutrophils % Seg Neuts % (Manual) Lymphocytes % (Manual) Monocytes % (Manual) Nucleated RBC % Seg Neutrophils # Seg Neutrophils # Man Lymphocytes # (Manual) Monocytes # (Manual) Percent Retic Haptoglobin PT INR Fibrinogen D-Dimer POC ABG pH POC ABG pCO2 17.6 L POC ABG pO2 62 L Sodium Potassium Chloride Carbon Dioxide BUN Creatinine Glucose POC Glucose 126 H 130 H Lactic Acid Calcium Phosphorus Magnesium Iron TIBC Total Bilirubin Direct Bilirubin AST ALT Alkaline Phosphatase Lactate Dehydrogenase CK-MB (CK-2) Troponin T C-Reactive Protein Total Protein Albumin Triglycerides Cholesterol HDL Cholesterol Vitamin B12 Urine Creatinine Urine Total Protein Heparin-induced Plt Ab Hep Bs Antibody, Quant Crossmatch 12/05/16 12/05/16 12/05/16 08:54 12:01 15:15 WBC RBC Hgb Hct MCV MCHC RDW Plt Count Lymph % (Auto) [place] # Seg Neutrophils % Seg Neuts % (Manual) Lymphocytes % (Manual) Monocytes % (Manual) Nucleated RBC % Seg Neutrophils # Seg Neutrophils # Man Lymphocytes # (Manual) Monocytes # (Manual) Percent Retic Haptoglobin PT INR Fibrinogen D-Dimer POC ABG pH POC ABG pCO2 POC ABG pO2 Sodium Potassium Chloride Carbon Dioxide BUN Creatinine Glucose POC Glucose 157 H 117 H 166 H Lactic Acid Calcium Phosphorus Magnesium Iron TIBC Total Bilirubin Direct Bilirubin AST ALT Alkaline Phosphatase Lactate Dehydrogenase CK-MB (CK-2) Troponin T C-Reactive Protein Total Protein Albumin Triglycerides Cholesterol HDL Cholesterol Vitamin B12 Urine Creatinine Urine Total Protein Heparin-induced Plt Ab Hep Bs Antibody, Quant Crossmatch 12/05/16 12/05/16 12/05/16 16:10 16:55 17:08 WBC RBC Hgb Hct MCV MCHC RDW Plt Count Lymph % (Auto) [place] # Seg Neutrophils % Seg Neuts % (Manual) Lymphocytes % (Manual) Monocytes % (Manual) Nucleated RBC % Seg Neutrophils # Seg Neutrophils # Man Lymphocytes # (Manual) Monocytes # (Manual) Percent Retic Haptoglobin PT INR Fibrinogen D-Dimer POC ABG pH POC ABG pCO2 POC ABG pO2 Sodium Potassium Chloride Carbon Dioxide BUN Creatinine Glucose POC Glucose 178 H 169 H Lactic Acid Calcium Phosphorus 5.00 H D Magnesium Iron TIBC Total Bilirubin Direct Bilirubin AST ALT Alkaline Phosphatase Lactate Dehydrogenase CK-MB (CK-2) Troponin T C-Reactive Protein Total Protein Albumin Triglycerides Cholesterol HDL Cholesterol Vitamin B12 Urine Creatinine Urine Total Protein Heparin-induced Plt Ab Hep Bs Antibody, Quant Crossmatch 12/05/16 12/05/16 12/05/16 18:08 18:51 20:04 WBC RBC Hgb Hct MCV MCHC RDW Plt Count Lymph % (Auto) [place] # Seg Neutrophils % Seg Neuts % (Manual) Lymphocytes % (Manual) Monocytes % (Manual) Nucleated RBC % Seg Neutrophils # Seg Neutrophils # Man Lymphocytes # (Manual) Monocytes # (Manual) Percent Retic Haptoglobin PT INR Fibrinogen D-Dimer POC ABG pH POC ABG pCO2 POC ABG pO2 Sodium Potassium Chloride Carbon Dioxide BUN Creatinine Glucose POC Glucose 147 H 113 H 64 L Lactic Acid Calcium Phosphorus Magnesium Iron TIBC Total Bilirubin Direct Bilirubin AST ALT Alkaline Phosphatase Lactate Dehydrogenase CK-MB (CK-2) Troponin T C-Reactive Protein Total Protein Albumin Triglycerides Cholesterol HDL Cholesterol Vitamin B12 Urine Creatinine Urine Total Protein Heparin-induced Plt Ab Hep Bs Antibody, Quant Crossmatch 12/05/16 12/05/16 12/05/16 21:34 22:08 23:19 WBC RBC Hgb Hct MCV MCHC RDW Plt Count Lymph % (Auto) [place] # Seg Neutrophils % Seg Neuts % (Manual) Lymphocytes % (Manual) Monocytes % (Manual) Nucleated RBC % Seg Neutrophils # Seg Neutrophils # Man Lymphocytes # (Manual) Monocytes # (Manual) Percent Retic Haptoglobin PT INR Fibrinogen D-Dimer POC ABG pH 7.303 L POC ABG pCO2 18.3 L POC ABG pO2 73 L Sodium Potassium Chloride Carbon Dioxide BUN Creatinine Glucose POC Glucose 141 H 200 H Lactic Acid Calcium Phosphorus Magnesium Iron TIBC Total Bilirubin Direct Bilirubin AST ALT Alkaline Phosphatase Lactate Dehydrogenase CK-MB (CK-2) Troponin T C-Reactive Protein Total Protein Albumin Triglycerides Cholesterol HDL Cholesterol Vitamin B12 Urine Creatinine Urine Total Protein Heparin-induced Plt Ab Hep Bs Antibody, Quant Crossmatch 12/06/16 12/06/16 12/06/16 00:01 01:09 02:00 WBC RBC Hgb Hct MCV MCHC RDW Plt Count Lymph % (Auto) [place] # Seg Neutrophils % Seg Neuts % (Manual) Lymphocytes % (Manual) Monocytes % (Manual) Nucleated RBC % Seg Neutrophils # Seg Neutrophils # Man Lymphocytes # (Manual) Monocytes # (Manual) Percent Retic Haptoglobin PT INR Fibrinogen D-Dimer POC ABG pH POC ABG pCO2 POC ABG pO2 Sodium Potassium Chloride Carbon Dioxide BUN Creatinine Glucose POC Glucose 211 H 116 H 57 L Lactic Acid Calcium Phosphorus Magnesium Iron TIBC Total Bilirubin Direct Bilirubin AST ALT Alkaline Phosphatase Lactate Dehydrogenase CK-MB (CK-2) Troponin T C-Reactive Protein Total Protein Albumin Triglycerides Cholesterol HDL Cholesterol Vitamin B12 Urine Creatinine Urine Total Protein Heparin-induced Plt Ab Hep Bs Antibody, Quant Crossmatch 12/06/16 12/06/16 12/06/16 04:14 04:50 04:50 WBC RBC 2.68 L Hgb 7.6 L Hct 23.2 L MCV MCHC RDW 18.9 H Plt Count Lymph % (Auto) [place] # Seg Neutrophils % Seg Neuts % (Manual) 32.0 L Lymphocytes % (Manual) Monocytes % (Manual) Nucleated RBC % 3.0 H Seg Neutrophils # Seg Neutrophils # Man Lymphocytes # (Manual) 0.9 L Monocytes # (Manual) Percent Retic Haptoglobin PT INR Fibrinogen D-Dimer POC ABG pH POC ABG pCO2 POC ABG pO2 Sodium Potassium 5.8 H D Chloride 111.5 H Carbon Dioxide 11 L BUN 52 H Creatinine 3.8 H Glucose 186 H POC Glucose 133 H Lactic Acid Calcium 6.5 L D Phosphorus 5.80 H Magnesium Iron TIBC Total Bilirubin Direct Bilirubin AST ALT Alkaline Phosphatase Lactate Dehydrogenase CK-MB (CK-2) Troponin T C-Reactive Protein Total Protein Albumin Triglycerides Cholesterol HDL Cholesterol Vitamin B12 Urine Creatinine Urine Total Protein Heparin-induced Plt Ab Hep Bs Antibody, Quant Crossmatch 12/06/16 12/06/16 12/06/16 04:50 05:04 05:07 WBC RBC Hgb Hct MCV MCHC RDW Plt Count Lymph % (Auto) [place] # Seg Neutrophils % Seg Neuts % (Manual) Lymphocytes % (Manual) Monocytes % (Manual) Nucleated RBC % Seg Neutrophils # Seg Neutrophils # Man Lymphocytes # (Manual) Monocytes # (Manual) Percent Retic Haptoglobin PT INR Fibrinogen D-Dimer POC ABG pH POC ABG pCO2 13.0 L POC ABG pO2 111 H Sodium Potassium Chloride Carbon Dioxide BUN Creatinine Glucose POC Glucose 127 H Lactic Acid 6.50 H* Calcium Phosphorus Magnesium Iron TIBC Total Bilirubin Direct Bilirubin AST ALT Alkaline Phosphatase Lactate Dehydrogenase CK-MB (CK-2) Troponin T C-Reactive Protein Total Protein Albumin Triglycerides Cholesterol HDL Cholesterol Vitamin B12 Urine Creatinine Urine Total Protein Heparin-induced Plt Ab Hep Bs Antibody, Quant Crossmatch 12/06/16 12/06/16 12/06/16 06:10 06:54 07:46 WBC RBC Hgb Hct MCV MCHC RDW Plt Count Lymph % (Auto) [place] # Seg Neutrophils % Seg Neuts % (Manual) Lymphocytes % (Manual) Monocytes % (Manual) Nucleated RBC % Seg Neutrophils # Seg Neutrophils # Man Lymphocytes # (Manual) Monocytes # (Manual) Percent Retic Haptoglobin PT INR Fibrinogen D-Dimer POC ABG pH POC ABG pCO2 POC ABG pO2 Sodium Potassium Chloride Carbon Dioxide BUN Creatinine Glucose POC Glucose 219 H 237 H 158 H Lactic Acid Calcium Phosphorus Magnesium Iron TIBC Total Bilirubin Direct Bilirubin AST ALT Alkaline Phosphatase Lactate Dehydrogenase CK-MB (CK-2) Troponin T C-Reactive Protein Total Protein Albumin Triglycerides Cholesterol HDL Cholesterol Vitamin B12 Urine Creatinine Urine Total Protein Heparin-induced Plt Ab Hep Bs Antibody, Quant Crossmatch 12/06/16 12/06/16 12/06/16 08:55 10:27 11:58 WBC RBC Hgb Hct MCV MCHC RDW Plt Count Lymph % (Auto) [place] # Seg Neutrophils % Seg Neuts % (Manual) Lymphocytes % (Manual) Monocytes % (Manual) Nucleated RBC % Seg Neutrophils # Seg Neutrophils # Man Lymphocytes # (Manual) Monocytes # (Manual) Percent Retic Haptoglobin PT INR Fibrinogen D-Dimer POC ABG pH POC ABG pCO2 POC ABG pO2 Sodium Potassium Chloride Carbon Dioxide BUN Creatinine Glucose POC Glucose 40 L 128 H 144 H Lactic Acid Calcium Phosphorus Magnesium Iron TIBC Total Bilirubin Direct Bilirubin AST ALT Alkaline Phosphatase Lactate Dehydrogenase CK-MB (CK-2) Troponin T C-Reactive Protein Total Protein Albumin Triglycerides Cholesterol HDL Cholesterol Vitamin B12 Urine Creatinine Urine Total Protein Heparin-induced Plt Ab Hep Bs Antibody, Quant Crossmatch 12/06/16 12/06/16 12/06/16 18:14 19:00 19:06 WBC RBC Hgb Hct MCV MCHC RDW Plt Count Lymph % (Auto) [place] # Seg Neutrophils % Seg Neuts % (Manual) Lymphocytes % (Manual) Monocytes % (Manual) Nucleated RBC % Seg Neutrophils # Seg Neutrophils # Man Lymphocytes # (Manual) Monocytes # (Manual) Percent Retic Haptoglobin PT INR Fibrinogen D-Dimer POC ABG pH POC ABG pCO2 POC ABG pO2 Sodium 149 H Potassium 5.6 H Chloride 115.9 H Carbon Dioxide 13 L BUN 56 H Creatinine 4.3 H Glucose 124 H POC Glucose 55 L 148 H Lactic Acid Calcium 6.0 L Phosphorus Magnesium Iron TIBC Total Bilirubin Direct Bilirubin AST ALT Alkaline Phosphatase Lactate Dehydrogenase CK-MB (CK-2) Troponin T C-Reactive Protein Total Protein Albumin Triglycerides Cholesterol HDL Cholesterol Vitamin B12 Urine Creatinine Urine Total Protein Heparin-induced Plt Ab Hep Bs Antibody, Quant Crossmatch 12/06/16 12/06/16 12/07/16 21:24 21:51 02:32 WBC RBC Hgb Hct MCV MCHC RDW Plt Count Lymph % (Auto) [place] # Seg Neutrophils % Seg Neuts % (Manual) Lymphocytes % (Manual) Monocytes % (Manual) Nucleated RBC % Seg Neutrophils # Seg Neutrophils # Man Lymphocytes # (Manual) Monocytes # (Manual) Percent Retic Haptoglobin PT INR Fibrinogen D-Dimer POC ABG pH POC ABG pCO2 17.0 L POC ABG pO2 142 H Sodium Potassium Chloride Carbon Dioxide BUN Creatinine Glucose POC Glucose 107 H 175 H Lactic Acid Calcium Phosphorus Magnesium Iron TIBC Total Bilirubin Direct Bilirubin AST ALT Alkaline Phosphatase Lactate Dehydrogenase CK-MB (CK-2) Troponin T C-Reactive Protein Total Protein Albumin Triglycerides Cholesterol HDL Cholesterol Vitamin B12 Urine Creatinine Urine Total Protein Heparin-induced Plt Ab Hep Bs Antibody, Quant Crossmatch 12/07/16 12/07/16 12/07/16 05:01 05:25 06:00 WBC RBC 2.52 L Hgb 7.1 L Hct 22.1 L MCV MCHC RDW 19.3 H Plt Count 90 L Lymph % (Auto) [place] # Seg Neutrophils % Seg Neuts % (Manual) 75.0 H Lymphocytes % (Manual) 11.0 L Monocytes % (Manual) Nucleated RBC % Seg Neutrophils # Seg Neutrophils # Man Lymphocytes # (Manual) 0.7 L Monocytes # (Manual) Percent Retic Haptoglobin PT INR Fibrinogen D-Dimer POC ABG pH 7.300 L POC ABG pCO2 17.1 L POC ABG pO2 140 H Sodium Potassium Chloride Carbon Dioxide BUN Creatinine Glucose POC Glucose 279 H Lactic Acid Calcium Phosphorus Magnesium Iron TIBC Total Bilirubin Direct Bilirubin AST ALT Alkaline Phosphatase Lactate Dehydrogenase CK-MB (CK-2) Troponin T C-Reactive Protein Total Protein Albumin Triglycerides Cholesterol HDL Cholesterol Vitamin B12 Urine Creatinine Urine Total Protein Heparin-induced Plt Ab Hep Bs Antibody, Quant Crossmatch 0712/07/16 12/07/16 06:00 06:00 07:30 WBC RBC Hgb Hct MCV MCHC RDW Plt Count Lymph % (Auto) [place] # Seg Neutrophils % Seg Neuts % (Manual) Lymphocytes % (Manual) Monocytes % (Manual) Nucleated RBC % Seg Neutrophils # Seg Neutrophils # Man Lymphocytes # (Manual) Monocytes # (Manual) Percent Retic Haptoglobin PT INR Fibrinogen D-Dimer POC ABG pH POC ABG pCO2 POC ABG pO2 Sodium Potassium Chloride Carbon Dioxide BUN Creatinine Glucose POC Glucose Lactic Acid 6.90 H* Calcium Phosphorus 6.80 H Magnesium Iron TIBC Total Bilirubin Direct Bilirubin AST ALT Alkaline Phosphatase Lactate Dehydrogenase CK-MB (CK-2) Troponin T C-Reactive Protein 39.40 H Total Protein Albumin Triglycerides Cholesterol HDL Cholesterol Vitamin B12 Urine Creatinine Urine Total Protein Heparin-induced Plt Ab Hep Bs Antibody, Quant Crossmatch 12/07/16 12/07/16 12/07/16 08:40 10:53 14:31 WBC RBC Hgb Hct MCV MCHC RDW Plt Count Lymph % (Auto) [place] # Seg Neutrophils % Seg Neuts % (Manual) Lymphocytes % (Manual) Monocytes % (Manual) Nucleated RBC % Seg Neutrophils # Seg Neutrophils # Man Lymphocytes # (Manual) Monocytes # (Manual) Percent Retic Haptoglobin PT INR Fibrinogen D-Dimer POC ABG pH POC ABG pCO2 POC ABG pO2 Sodium Potassium 7.0 H* D Chloride 112.4 H Carbon Dioxide 8 L* BUN 61 H Creatinine 5.1 H Glucose 213 H POC Glucose 353 H 52 L Lactic Acid Calcium 5.8 L* Phosphorus Magnesium Iron TIBC Total Bilirubin Direct Bilirubin AST ALT Alkaline Phosphatase Lactate Dehydrogenase CK-MB (CK-2) Troponin T C-Reactive Protein Total Protein Albumin Triglycerides Cholesterol HDL Cholesterol Vitamin B12 Urine Creatinine Urine Total Protein Heparin-induced Plt Ab Hep Bs Antibody, Quant Crossmatch 12/07/16 12/07/16 12/07/16 14:45 15:33 16:22 WBC RBC Hgb Hct MCV MCHC RDW Plt Count Lymph % (Auto) [place] # Seg Neutrophils % Seg Neuts % (Manual) Lymphocytes % (Manual) Monocytes % (Manual) Nucleated RBC % Seg Neutrophils # Seg Neutrophils # Man Lymphocytes # (Manual) Monocytes # (Manual) Percent Retic Haptoglobin PT 17.5 H INR 1.44 H Fibrinogen D-Dimer POC ABG pH POC ABG pCO2 POC ABG pO2 Sodium Potassium Chloride Carbon Dioxide BUN Creatinine Glucose POC Glucose < 40 L 118 H Lactic Acid Calcium Phosphorus Magnesium Iron TIBC Total Bilirubin Direct Bilirubin AST ALT Alkaline Phosphatase Lactate Dehydrogenase CK-MB (CK-2) Troponin T C-Reactive Protein Total Protein Albumin Triglycerides Cholesterol HDL Cholesterol Vitamin B12 Urine Creatinine Urine Total Protein Heparin-induced Plt Ab Hep Bs Antibody, Quant Crossmatch 12/07/16 12/07/16 12/07/16 21:35 21:35 21:58 WBC RBC Hgb Hct MCV MCHC RDW Plt Count Lymph % (Auto) [place] # Seg Neutrophils % Seg Neuts % (Manual) Lymphocytes % (Manual) Monocytes % (Manual) Nucleated RBC % Seg Neutrophils # Seg Neutrophils # Man Lymphocytes # (Manual) Monocytes # (Manual) Percent Retic Haptoglobin PT INR Fibrinogen D-Dimer POC ABG pH POC ABG pCO2 POC ABG pO2 Sodium 150 H Potassium 3.3 L D Chloride 111.4 H Carbon Dioxide 21 L D BUN 22 H Creatinine 2.6 H Glucose 23 L* POC Glucose < 40 L Lactic Acid Calcium Phosphorus Magnesium Iron TIBC Total Bilirubin 1.40 H Direct Bilirubin 0.9 H AST 94 H ALT 142 H Alkaline Phosphatase 249 H Lactate Dehydrogenase CK-MB (CK-2) Troponin T C-Reactive Protein Total Protein 4.6 L D Albumin 2.1 L Triglycerides Cholesterol HDL Cholesterol Vitamin B12 Urine Creatinine Urine Total Protein Heparin-induced Plt Ab Hep Bs Antibody, Quant Crossmatch 12/07/16 12/08/16 12/08/16 23:31 04:43 04:50 WBC RBC 2.35 L Hgb 6.6 L Hct 20.1 L MCV MCHC RDW 17.8 H Plt Count 48 L Lymph % (Auto) [place] # Seg Neutrophils % Seg Neuts % (Manual) Lymphocytes % (Manual) Monocytes % (Manual) Nucleated RBC % Seg Neutrophils # Seg Neutrophils # Man Lymphocytes # (Manual) 0.9 L Monocytes # (Manual) Percent Retic Haptoglobin PT INR Fibrinogen D-Dimer POC ABG pH 7.586 H POC ABG pCO2 17.7 L POC ABG pO2 150 H Sodium Potassium Chloride Carbon Dioxide BUN Creatinine Glucose POC Glucose 42 L Lactic Acid Calcium Phosphorus Magnesium Iron TIBC Total Bilirubin Direct Bilirubin AST ALT Alkaline Phosphatase Lactate Dehydrogenase CK-MB (CK-2) Troponin T C-Reactive Protein Total Protein Albumin Triglycerides Cholesterol HDL Cholesterol Vitamin B12 Urine Creatinine Urine Total Protein Heparin-induced Plt Ab Hep Bs Antibody, Quant Crossmatch 12/08/16 12/08/16 12/08/16 04:50 04:59 06:54 WBC RBC Hgb Hct MCV MCHC RDW Plt Count Lymph % (Auto) [place] # Seg Neutrophils % Seg Neuts % (Manual) Lymphocytes % (Manual) Monocytes % (Manual) Nucleated RBC % Seg Neutrophils # Seg Neutrophils # Man Lymphocytes # (Manual) Monocytes # (Manual) Percent Retic Haptoglobin PT INR Fibrinogen D-Dimer POC ABG pH POC ABG pCO2 POC ABG pO2 Sodium 149 H Potassium 3.2 L Chloride 111.8 H Carbon Dioxide 17 L BUN 26 H Creatinine 3.4 H Glucose 163 H POC Glucose 204 H 203 H Lactic Acid Calcium 7.7 L Phosphorus 2.40 L D Magnesium Iron TIBC Total Bilirubin Direct Bilirubin AST ALT Alkaline Phosphatase Lactate Dehydrogenase CK-MB (CK-2) Troponin T C-Reactive Protein Total Protein Albumin Triglycerides Cholesterol HDL Cholesterol Vitamin B12 Urine Creatinine Urine Total Protein Heparin-induced Plt Ab Hep Bs Antibody, Quant Crossmatch 12/08/16 12/08/16 12/08/16 08:04 08:46 08:46 WBC RBC Hgb Hct MCV MCHC RDW Plt Count Lymph % (Auto) [place] # Seg Neutrophils % Seg Neuts % (Manual) Lymphocytes % (Manual) Monocytes % (Manual) Nucleated RBC % Seg Neutrophils # Seg Neutrophils # Man Lymphocytes # (Manual) Monocytes # (Manual) Percent Retic Haptoglobin PT INR Fibrinogen D-Dimer POC ABG pH POC ABG pCO2 POC ABG pO2 Sodium 147 H Potassium 2.9 L* Chloride 110.6 H Carbon Dioxide 17 L BUN 28 H Creatinine 3.6 H Glucose 127 H POC Glucose 205 H Lactic Acid Calcium 7.3 L Phosphorus Magnesium Iron TIBC Total Bilirubin Direct Bilirubin AST ALT Alkaline Phosphatase Lactate Dehydrogenase CK-MB (CK-2) Troponin T C-Reactive Protein Total Protein Albumin Triglycerides Cholesterol HDL Cholesterol Vitamin B12 Urine Creatinine Urine Total Protein Heparin-induced Plt Ab Hep Bs Antibody, Quant Crossmatch See Detail 12/08/16 12/08/16 12/08/16 12:36 19:00 19:00 WBC RBC Hgb Hct MCV MCHC RDW Plt Count Lymph % (Auto) [place] # Seg Neutrophils % Seg Neuts % (Manual) Lymphocytes % (Manual) Monocytes % (Manual) Nucleated RBC % Seg Neutrophils # Seg Neutrophils # Man Lymphocytes # (Manual) Monocytes # (Manual) Percent Retic Haptoglobin PT 15.3 H INR 1.22 H Fibrinogen 563 H D-Dimer 5507.36 H POC ABG pH POC ABG pCO2 POC ABG pO2 Sodium Potassium Chloride Carbon Dioxide 21 L BUN Creatinine 1.7 H D Glucose 155 H POC Glucose 181 H Lactic Acid Calcium Phosphorus Magnesium Iron TIBC Total Bilirubin Direct Bilirubin AST ALT Alkaline Phosphatase Lactate Dehydrogenase CK-MB (CK-2) Troponin T C-Reactive Protein Total Protein Albumin Triglycerides Cholesterol HDL Cholesterol Vitamin B12 Urine Creatinine Urine Total Protein Heparin-induced Plt Ab Hep Bs Antibody, Quant Crossmatch 12/08/16 12/08/16 12/08/16 19:00 19:00 21:30 WBC RBC 2.76 L Hgb 7.8 L Hct 23.7 L MCV MCHC RDW 17.0 H Plt Count 38 L Lymph % (Auto) [place] # Seg Neutrophils % Seg Neuts % (Manual) Lymphocytes % (Manual) Monocytes % (Manual) Nucleated RBC % Seg Neutrophils # Seg Neutrophils # Man Lymphocytes # (Manual) Monocytes # (Manual) Percent Retic Haptoglobin 271 H PT INR Fibrinogen D-Dimer POC ABG pH POC ABG pCO2 POC ABG pO2 Sodium Potassium Chloride Carbon Dioxide BUN Creatinine Glucose POC Glucose Lactic Acid Calcium Phosphorus Magnesium Iron TIBC Total Bilirubin Direct Bilirubin AST ALT Alkaline Phosphatase Lactate Dehydrogenase 382 H CK-MB (CK-2) Troponin T C-Reactive Protein Total Protein Albumin Triglycerides Cholesterol HDL Cholesterol Vitamin B12 Urine Creatinine Urine Total Protein Heparin-induced Plt Ab Hep Bs Antibody, Quant Crossmatch 12/08/16 12/08/16 12/09/16 23:32 23:44 05:22 WBC RBC Hgb Hct MCV MCHC RDW Plt Count Lymph % (Auto) [place] # Seg Neutrophils % Seg Neuts % (Manual) Lymphocytes % (Manual) Monocytes % (Manual) Nucleated RBC % Seg Neutrophils # Seg Neutrophils # Man Lymphocytes # (Manual) Monocytes # (Manual) Percent Retic Haptoglobin PT INR Fibrinogen D-Dimer POC ABG pH 7.498 H POC ABG pCO2 25.2 L POC ABG pO2 137 H Sodium Potassium Chloride Carbon Dioxide BUN Creatinine Glucose POC Glucose 311 H 113 H Lactic Acid Calcium Phosphorus Magnesium Iron TIBC Total Bilirubin Direct Bilirubin AST ALT Alkaline Phosphatase Lactate Dehydrogenase CK-MB (CK-2) Troponin T C-Reactive Protein Total Protein Albumin Triglycerides Cholesterol HDL Cholesterol Vitamin B12 Urine Creatinine Urine Total Protein Heparin-induced Plt Ab Hep Bs Antibody, Quant Crossmatch 12/09/16 12/09/16 12/09/16 06:00 11:29 11:59 WBC RBC Hgb Hct MCV MCHC RDW Plt Count Lymph % (Auto) [place] # Seg Neutrophils % Seg Neuts % (Manual) Lymphocytes % (Manual) Monocytes % (Manual) Nucleated RBC % Seg Neutrophils # Seg Neutrophils # Man Lymphocytes # (Manual) Monocytes # (Manual) Percent Retic 0.23 L Haptoglobin PT INR Fibrinogen D-Dimer POC ABG pH POC ABG pCO2 POC ABG pO2 Sodium Potassium Chloride 110.2 H Carbon Dioxide 18 L BUN 19 H Creatinine 2.5 H Glucose 105 H POC Glucose 254 H Lactic Acid Calcium Phosphorus 2.00 L Magnesium Iron TIBC Total Bilirubin Direct Bilirubin AST ALT Alkaline Phosphatase Lactate Dehydrogenase CK-MB (CK-2) Troponin T C-Reactive Protein Total Protein Albumin Triglycerides Cholesterol HDL Cholesterol Vitamin B12 Urine Creatinine Urine Total Protein Heparin-induced Plt Ab Hep Bs Antibody, Quant Crossmatch 12/09/16 12/09/16 12/09/16 12:02 13:27 13:27 WBC RBC Hgb Hct MCV MCHC RDW Plt Count Lymph % (Auto) [place] # Seg Neutrophils % Seg Neuts % (Manual) Lymphocytes % (Manual) Monocytes % (Manual) Nucleated RBC % Seg Neutrophils # Seg Neutrophils # Man Lymphocytes # (Manual) Monocytes # (Manual) Percent Retic Haptoglobin PT INR Fibrinogen D-Dimer POC ABG pH 7.326 L POC ABG pCO2 POC ABG pO2 115 H Sodium Potassium Chloride Carbon Dioxide BUN Creatinine Glucose POC Glucose Lactic Acid Calcium Phosphorus Magnesium Iron 15 L TIBC 134 L Total Bilirubin Direct Bilirubin AST ALT Alkaline Phosphatase Lactate Dehydrogenase CK-MB (CK-2) Troponin T C-Reactive Protein Total Protein Albumin Triglycerides Cholesterol HDL Cholesterol Vitamin B12 > 2000 H Urine Creatinine Urine Total Protein Heparin-induced Plt Ab Hep Bs Antibody, Quant Crossmatch 12/09/16 12/09/16 12/09/16 13:27 13:27 16:28 WBC RBC Hgb Hct MCV MCHC RDW Plt Count Lymph % (Auto) [place] # Seg Neutrophils % Seg Neuts % (Manual) Lymphocytes % (Manual) Monocytes % (Manual) Nucleated RBC % Seg Neutrophils # Seg Neutrophils # Man Lymphocytes # (Manual) Monocytes # (Manual) Percent Retic Haptoglobin PT INR Fibrinogen D-Dimer POC ABG pH POC ABG pCO2 POC ABG pO2 Sodium Potassium Chloride Carbon Dioxide BUN Creatinine Glucose POC Glucose 199 H Lactic Acid Calcium Phosphorus Magnesium Iron TIBC Total Bilirubin Direct Bilirubin AST ALT Alkaline Phosphatase Lactate Dehydrogenase CK-MB (CK-2) Troponin T C-Reactive Protein Total Protein Albumin Triglycerides Cholesterol HDL Cholesterol Vitamin B12 Urine Creatinine Urine Total Protein Heparin-induced Plt Ab Weak positive H Hep Bs Antibody, Quant <5 L Crossmatch 12/09/16 12/09/16 12/10/16 23:27 Unknown 05:36 WBC 11.3 H RBC 2.92 L Hgb 8.4 L Hct 25.3 L MCV MCHC RDW 16.9 H Plt Count 31 L Lymph % (Auto) [place] # Seg Neutrophils % Seg Neuts % (Manual) Lymphocytes % (Manual) Monocytes % (Manual) Nucleated RBC % Seg Neutrophils # Seg Neutrophils # Man Lymphocytes # (Manual) Monocytes # (Manual) Percent Retic Haptoglobin PT INR Fibrinogen D-Dimer POC ABG pH POC ABG pCO2 POC ABG pO2 Sodium Potassium Chloride Carbon Dioxide BUN Creatinine Glucose POC Glucose 247 H 248 H Lactic Acid Calcium Phosphorus Magnesium Iron TIBC Total Bilirubin Direct Bilirubin AST ALT Alkaline Phosphatase Lactate Dehydrogenase CK-MB (CK-2) Troponin T C-Reactive Protein Total Protein Albumin Triglycerides Cholesterol HDL Cholesterol Vitamin B12 Urine Creatinine Urine Total Protein Heparin-induced Plt Ab Hep Bs Antibody, Quant Crossmatch 12/10/16 12/10/16 12/10/16 09:55 09:55 11:49 WBC 21.2 H RBC 3.37 L Hgb 9.6 L Hct 29.5 L MCV MCHC RDW 16.3 H Plt Count 102 L D Lymph % (Auto) [place] # Seg Neutrophils % Seg Neuts % (Manual) Lymphocytes % (Manual) Monocytes % (Manual) Nucleated RBC % Seg Neutrophils # Seg Neutrophils # Man Lymphocytes # (Manual) Monocytes # (Manual) Percent Retic Haptoglobin PT INR Fibrinogen D-Dimer POC ABG pH POC ABG pCO2 POC ABG pO2 Sodium Potassium Chloride 107.4 H Carbon Dioxide 21 L BUN 37 H Creatinine 4.2 H D Glucose 174 H POC Glucose 265 H Lactic Acid Calcium Phosphorus Magnesium Iron TIBC Total Bilirubin Direct Bilirubin AST ALT Alkaline Phosphatase Lactate Dehydrogenase CK-MB (CK-2) Troponin T C-Reactive Protein Total Protein Albumin Triglycerides Cholesterol HDL Cholesterol Vitamin B12 Urine Creatinine Urine Total Protein Heparin-induced Plt Ab Hep Bs Antibody, Quant Crossmatch 12/10/16 12/10/16 12/11/16 17:56 23:44 04:30 WBC 23.5 H RBC 3.46 L Hgb 9.7 L Hct 30.1 L MCV MCHC RDW 16.4 H Plt Count 115 L Lymph % (Auto) [place] # Seg Neutrophils % Seg Neuts % (Manual) 84.0 H Lymphocytes % (Manual) 5.0 L Monocytes % (Manual) 10.0 H Nucleated RBC % 1.0 H Seg Neutrophils # Seg Neutrophils # Man 19.7 H Lymphocytes # (Manual) Monocytes # (Manual) 2.4 H Percent Retic Haptoglobin PT INR Fibrinogen D-Dimer POC ABG pH POC ABG pCO2 POC ABG pO2 Sodium Potassium Chloride Carbon Dioxide BUN Creatinine Glucose POC Glucose 118 H 378 H Lactic Acid Calcium Phosphorus Magnesium Iron TIBC Total Bilirubin Direct Bilirubin AST ALT Alkaline Phosphatase Lactate Dehydrogenase CK-MB (CK-2) Troponin T C-Reactive Protein Total Protein Albumin Triglycerides Cholesterol HDL Cholesterol Vitamin B12 Urine Creatinine Urine Total Protein Heparin-induced Plt Ab Hep Bs Antibody, Quant Crossmatch 12/11/16 12/11/16 12/11/16 04:30 05:33 12:48 WBC RBC Hgb Hct MCV MCHC RDW Plt Count Lymph % (Auto) [place] # Seg Neutrophils % Seg Neuts % (Manual) Lymphocytes % (Manual) Monocytes % (Manual) Nucleated RBC % Seg Neutrophils # Seg Neutrophils # Man Lymphocytes # (Manual) Monocytes # (Manual) Percent Retic Haptoglobin PT INR Fibrinogen D-Dimer POC ABG pH POC ABG pCO2 POC ABG pO2 Sodium Potassium Chloride Carbon Dioxide 21 L BUN 50 H Creatinine 4.8 H Glucose 303 H POC Glucose 335 H 325 H Lactic Acid Calcium 8.2 L Phosphorus Magnesium Iron TIBC Total Bilirubin Direct Bilirubin AST ALT Alkaline Phosphatase Lactate Dehydrogenase CK-MB (CK-2) Troponin T C-Reactive Protein Total Protein Albumin Triglycerides Cholesterol HDL Cholesterol Vitamin B12 Urine Creatinine Urine Total Protein Heparin-induced Plt Ab Hep Bs Antibody, Quant Crossmatch 12/11/16 12/11/16 12/12/16 17:49 21:16 00:49 WBC RBC Hgb Hct MCV MCHC RDW Plt Count Lymph % (Auto) [place] # Seg Neutrophils % Seg Neuts % (Manual) Lymphocytes % (Manual) Monocytes % (Manual) Nucleated RBC % Seg Neutrophils # Seg Neutrophils # Man Lymphocytes # (Manual) Monocytes # (Manual) Percent Retic Haptoglobin PT INR Fibrinogen D-Dimer POC ABG pH POC ABG pCO2 POC ABG pO2 Sodium Potassium Chloride Carbon Dioxide BUN Creatinine Glucose POC Glucose 368 H 162 H 225 H Lactic Acid Calcium Phosphorus Magnesium Iron TIBC Total Bilirubin Direct Bilirubin AST ALT Alkaline Phosphatase Lactate Dehydrogenase CK-MB (CK-2) Troponin T C-Reactive Protein Total Protein Albumin Triglycerides Cholesterol HDL Cholesterol Vitamin B12 Urine Creatinine Urine Total Protein Heparin-induced Plt Ab Hep Bs Antibody, Quant Crossmatch 12/12/16 12/12/16 12/12/16 06:09 07:52 08:18 WBC 24.1 H RBC 3.16 L Hgb 9.0 L Hct 29.4 L MCV MCHC RDW 16.6 H Plt Count 96 L Lymph % (Auto) [place] # Seg Neutrophils % Seg Neuts % (Manual) 75.0 H Lymphocytes % (Manual) Monocytes % (Manual) Nucleated RBC % Seg Neutrophils # Seg Neutrophils # Man 18.1 H Lymphocytes # (Manual) Monocytes # (Manual) 1.4 H Percent Retic Haptoglobin PT INR Fibrinogen D-Dimer POC ABG pH POC ABG pCO2 POC ABG pO2 Sodium Potassium Chloride Carbon Dioxide BUN Creatinine Glucose POC Glucose 428 H 418 H Lactic Acid Calcium Phosphorus Magnesium Iron TIBC Total Bilirubin Direct Bilirubin AST ALT Alkaline Phosphatase Lactate Dehydrogenase CK-MB (CK-2) Troponin T C-Reactive Protein Total Protein Albumin Triglycerides Cholesterol HDL Cholesterol Vitamin B12 Urine Creatinine Urine Total Protein Heparin-induced Plt Ab Hep Bs Antibody, Quant Crossmatch 12/12/16 12/12/16 12/12/16 08:18 11:31 17:03 WBC RBC Hgb Hct MCV MCHC RDW Plt Count Lymph % (Auto) [place] # Seg Neutrophils % Seg Neuts % (Manual) Lymphocytes % (Manual) Monocytes % (Manual) Nucleated RBC % Seg Neutrophils # Seg Neutrophils # Man Lymphocytes # (Manual) Monocytes # (Manual) Percent Retic Haptoglobin PT INR Fibrinogen D-Dimer POC ABG pH POC ABG pCO2 POC ABG pO2 Sodium Potassium Chloride Carbon Dioxide 12 L D BUN 41 H Creatinine 4.5 H Glucose 369 H POC Glucose 212 H 422 H Lactic Acid Calcium Phosphorus Magnesium Iron TIBC Total Bilirubin Direct Bilirubin AST ALT Alkaline Phosphatase Lactate Dehydrogenase CK-MB (CK-2) Troponin T C-Reactive Protein Total Protein Albumin Triglycerides Cholesterol HDL Cholesterol Vitamin B12 Urine Creatinine Urine Total Protein Heparin-induced Plt Ab Hep Bs Antibody, Quant Crossmatch 12/12/16 12/13/16 12/13/16 21:35 07:49 07:49 WBC 24.0 H RBC 2.90 L Hgb 8.3 L Hct 25.8 L MCV MCHC RDW 15.5 H Plt Count 120 L Lymph % (Auto) [place] # Seg Neutrophils % Seg Neuts % (Manual) 89.0 H Lymphocytes % (Manual) 7.0 L Monocytes % (Manual) Nucleated RBC % Seg Neutrophils # Seg Neutrophils # Man 21.4 H Lymphocytes # (Manual) Monocytes # (Manual) Percent Retic Haptoglobin PT INR Fibrinogen D-Dimer POC ABG pH POC ABG pCO2 POC ABG pO2 Sodium Potassium 3.2 L Chloride Carbon Dioxide BUN 21 H Creatinine 3.0 H Glucose 21 L* POC Glucose 185 H Lactic Acid Calcium Phosphorus Magnesium Iron TIBC Total Bilirubin Direct Bilirubin AST ALT Alkaline Phosphatase Lactate Dehydrogenase CK-MB (CK-2) Troponin T C-Reactive Protein Total Protein Albumin Triglycerides Cholesterol HDL Cholesterol Vitamin B12 Urine Creatinine Urine Total Protein Heparin-induced Plt Ab Hep Bs Antibody, Quant Crossmatch 12/13/16 12/13/16 12/13/16 09:57 11:02 16:52 WBC RBC Hgb Hct MCV MCHC RDW Plt Count Lymph % (Auto) [place] # Seg Neutrophils % Seg Neuts % (Manual) Lymphocytes % (Manual) Monocytes % (Manual) Nucleated RBC % Seg Neutrophils # Seg Neutrophils # Man Lymphocytes # (Manual) Monocytes # (Manual) Percent Retic Haptoglobin PT INR Fibrinogen D-Dimer POC ABG pH POC ABG pCO2 POC ABG pO2 Sodium Potassium Chloride Carbon Dioxide BUN Creatinine Glucose POC Glucose < 40 L 231 H 312 H Lactic Acid Calcium Phosphorus Magnesium Iron TIBC Total Bilirubin Direct Bilirubin AST ALT Alkaline Phosphatase Lactate Dehydrogenase CK-MB (CK-2) Troponin T C-Reactive Protein Total Protein Albumin Triglycerides Cholesterol HDL Cholesterol Vitamin B12 Urine Creatinine Urine Total Protein Heparin-induced Plt Ab Hep Bs Antibody, Quant Crossmatch 12/13/16 12/14/16 12/14/16 21:32 07:07 07:07 WBC 16.7 H RBC 2.80 L Hgb 7.9 L Hct 24.7 L MCV MCHC RDW 15.4 H Plt Count 131 L Lymph % (Auto) 13.1 L [place] # 1.2 H Seg Neutrophils % 78.3 H Seg Neuts % (Manual) Lymphocytes % (Manual) Monocytes % (Manual) Nucleated RBC % Seg Neutrophils # 13.1 H Seg Neutrophils # Man Lymphocytes # (Manual) Monocytes # (Manual) Percent Retic Haptoglobin PT INR Fibrinogen D-Dimer POC ABG pH POC ABG pCO2 POC ABG pO2 Sodium Potassium 3.5 L Chloride Carbon Dioxide BUN 30 H Creatinine 4.6 H D Glucose 181 H POC Glucose 275 H Lactic Acid Calcium 7.7 L Phosphorus Magnesium Iron TIBC Total Bilirubin Direct Bilirubin AST ALT Alkaline Phosphatase Lactate Dehydrogenase CK-MB (CK-2) Troponin T C-Reactive Protein Total Protein Albumin Triglycerides Cholesterol HDL Cholesterol Vitamin B12 Urine Creatinine Urine Total Protein Heparin-induced Plt Ab Hep Bs Antibody, Quant Crossmatch 12/14/16 12/14/16 12/14/16 07:46 11:35 16:24 WBC RBC Hgb Hct MCV MCHC RDW Plt Count Lymph % (Auto) [place] # Seg Neutrophils % Seg Neuts % (Manual) Lymphocytes % (Manual) Monocytes % (Manual) Nucleated RBC % Seg Neutrophils # Seg Neutrophils # Man Lymphocytes # (Manual) Monocytes # (Manual) Percent Retic Haptoglobin PT INR Fibrinogen D-Dimer POC ABG pH POC ABG pCO2 POC ABG pO2 Sodium Potassium Chloride Carbon Dioxide BUN Creatinine Glucose POC Glucose 189 H 254 H 466 H Lactic Acid Calcium Phosphorus Magnesium Iron TIBC Total Bilirubin Direct Bilirubin AST ALT Alkaline Phosphatase Lactate Dehydrogenase CK-MB (CK-2) Troponin T C-Reactive Protein Total Protein Albumin Triglycerides Cholesterol HDL Cholesterol Vitamin B12 Urine Creatinine Urine Total Protein Heparin-induced Plt Ab Hep Bs Antibody, Quant Crossmatch 12/14/16 12/15/16 12/15/16 20:57 06:27 07:46 WBC RBC Hgb Hct MCV MCHC RDW Plt Count Lymph % (Auto) [place] # Seg Neutrophils % Seg Neuts % (Manual) Lymphocytes % (Manual) Monocytes % (Manual) Nucleated RBC % Seg Neutrophils # Seg Neutrophils # Man Lymphocytes # (Manual) Monocytes # (Manual) Percent Retic Haptoglobin PT INR Fibrinogen D-Dimer POC ABG pH POC ABG pCO2 POC ABG pO2 Sodium Potassium Chloride Carbon Dioxide BUN Creatinine Glucose POC Glucose 301 H 183 H 231 H Lactic Acid Calcium Phosphorus Magnesium Iron TIBC Total Bilirubin Direct Bilirubin AST ALT Alkaline Phosphatase Lactate Dehydrogenase CK-MB (CK-2) Troponin T C-Reactive Protein Total Protein Albumin Triglycerides Cholesterol HDL Cholesterol Vitamin B12 Urine Creatinine Urine Total Protein Heparin-induced Plt Ab Hep Bs Antibody, Quant Crossmatch 12/15/16 12/15/16 12/15/16 11:38 15:34 20:51 WBC RBC Hgb Hct MCV MCHC RDW Plt Count Lymph % (Auto) [place] # Seg Neutrophils % Seg Neuts % (Manual) Lymphocytes % (Manual) Monocytes % (Manual) Nucleated RBC % Seg Neutrophils # Seg Neutrophils # Man Lymphocytes # (Manual) Monocytes # (Manual) Percent Retic Haptoglobin PT INR Fibrinogen D-Dimer POC ABG pH POC ABG pCO2 POC ABG pO2 Sodium Potassium Chloride Carbon Dioxide BUN Creatinine Glucose POC Glucose 375 H 313 H 274 H Lactic Acid Calcium Phosphorus Magnesium Iron TIBC Total Bilirubin Direct Bilirubin AST ALT Alkaline Phosphatase Lactate Dehydrogenase CK-MB (CK-2) Troponin T C-Reactive Protein Total Protein Albumin Triglycerides Cholesterol HDL Cholesterol Vitamin B12 Urine Creatinine Urine Total Protein Heparin-induced Plt Ab Hep Bs Antibody, Quant Crossmatch 12/16/16 12/16/16 12/16/16 08:26 09:12 17:13 WBC RBC Hgb Hct MCV MCHC RDW Plt Count Lymph % (Auto) [place] # Seg Neutrophils % Seg Neuts % (Manual) Lymphocytes % (Manual) Monocytes % (Manual) Nucleated RBC % Seg Neutrophils # Seg Neutrophils # Man Lymphocytes # (Manual) Monocytes # (Manual) Percent Retic Haptoglobin PT INR Fibrinogen D-Dimer POC ABG pH POC ABG pCO2 POC ABG pO2 Sodium Potassium Chloride Carbon Dioxide BUN Creatinine Glucose POC Glucose 59 L 127 H > 500 H Lactic Acid Calcium Phosphorus Magnesium Iron TIBC Total Bilirubin Direct Bilirubin AST ALT Alkaline Phosphatase Lactate Dehydrogenase CK-MB (CK-2) Troponin T C-Reactive Protein Total Protein Albumin Triglycerides Cholesterol HDL Cholesterol Vitamin B12 Urine Creatinine Urine Total Protein Heparin-induced Plt Ab Hep Bs Antibody, Quant Crossmatch 12/16/16 12/16/16 12/16/16 22:59 Unknown Unknown WBC 17.2 H RBC 2.83 L Hgb 7.9 L Hct 24.4 L MCV MCHC RDW Plt Count Lymph % (Auto) 9.2 L Knott # 0.9 H Seg Neutrophils % 84.1 H Seg Neuts % (Manual) Lymphocytes % (Manual) Monocytes % (Manual) Nucleated RBC % Seg Neutrophils # 14.5 H Seg Neutrophils # Man Lymphocytes # (Manual) Monocytes # (Manual) Percent Retic Haptoglobin PT INR Fibrinogen D-Dimer POC ABG pH POC ABG pCO2 POC ABG pO2 Sodium Potassium Chloride Carbon Dioxide BUN 43 H Creatinine 5.4 H Glucose 131 H POC Glucose 320 H Lactic Acid Calcium 6.9 L Phosphorus Magnesium Iron TIBC Total Bilirubin Direct Bilirubin AST ALT Alkaline Phosphatase Lactate Dehydrogenase CK-MB (CK-2) Troponin T C-Reactive Protein Total Protein Albumin Triglycerides Cholesterol HDL Cholesterol Vitamin B12 Urine Creatinine Urine Total Protein Heparin-induced Plt Ab Hep Bs Antibody, Quant Crossmatch 12/17/16 12/17/16 12/17/16 08:26 08:56 09:52 WBC RBC Hgb Hct MCV MCHC RDW Plt Count Lymph % (Auto) Knott # Seg Neutrophils % Seg Neuts % (Manual) Lymphocytes % (Manual) Monocytes % (Manual) Nucleated RBC % Seg Neutrophils # Seg Neutrophils # Man Lymphocytes # (Manual) Monocytes # (Manual) Percent Retic Haptoglobin PT INR Fibrinogen D-Dimer POC ABG pH POC ABG pCO2 POC ABG pO2 Sodium Potassium Chloride Carbon Dioxide BUN Creatinine Glucose POC Glucose < 40 L 40 L 133 H Lactic Acid Calcium Phosphorus Magnesium Iron TIBC Total Bilirubin Direct Bilirubin AST ALT Alkaline Phosphatase Lactate Dehydrogenase CK-MB (CK-2) Troponin T C-Reactive Protein Total Protein Albumin Triglycerides Cholesterol HDL Cholesterol Vitamin B12 Urine Creatinine Urine Total Protein Heparin-induced Plt Ab Hep Bs Antibody, Quant Crossmatch 12/17/16 12/17/16 12/17/16 12:51 16:08 21:00 WBC RBC Hgb Hct MCV MCHC RDW Plt Count Lymph % (Auto) Knott # Seg Neutrophils % Seg Neuts % (Manual) Lymphocytes % (Manual) Monocytes % (Manual) Nucleated RBC % Seg Neutrophils # Seg Neutrophils # Man Lymphocytes # (Manual) Monocytes # (Manual) Percent Retic Haptoglobin PT INR Fibrinogen D-Dimer POC ABG pH POC ABG pCO2 POC ABG pO2 Sodium Potassium Chloride Carbon Dioxide BUN Creatinine Glucose POC Glucose 177 H 303 H 489 H Lactic Acid Calcium Phosphorus Magnesium Iron TIBC Total Bilirubin Direct Bilirubin AST ALT Alkaline Phosphatase Lactate Dehydrogenase CK-MB (CK-2) Troponin T C-Reactive Protein Total Protein Albumin Triglycerides Cholesterol HDL Cholesterol Vitamin B12 Urine Creatinine Urine Total Protein Heparin-induced Plt Ab Hep Bs Antibody, Quant Crossmatch 12/17/16 12/17/16 12/18/16 Unknown Unknown 05:50 WBC 16.6 H 15.6 H RBC 2.63 L 2.58 L Hgb 7.5 L 7.3 L Hct 23.3 L 23.0 L MCV MCHC RDW 15.3 H 15.9 H Plt Count Lymph % (Auto) 7.7 L 8.7 L Knott # 0.9 H Seg Neutrophils % 85.8 H 83.6 H Seg Neuts % (Manual) Lymphocytes % (Manual) Monocytes % (Manual) Nucleated RBC % Seg Neutrophils # 14.3 H 13.0 H Seg Neutrophils # Man Lymphocytes # (Manual) Monocytes # (Manual) Percent Retic Haptoglobin PT INR Fibrinogen D-Dimer POC ABG pH POC ABG pCO2 POC ABG pO2 Sodium Potassium 3.5 L Chloride Carbon Dioxide BUN 47 H Creatinine 5.2 H Glucose 173 H POC Glucose Lactic Acid Calcium 6.9 L Phosphorus Magnesium Iron TIBC Total Bilirubin Direct Bilirubin AST ALT Alkaline Phosphatase Lactate Dehydrogenase CK-MB (CK-2) Troponin T C-Reactive Protein Total Protein Albumin Triglycerides Cholesterol HDL Cholesterol Vitamin B12 Urine Creatinine Urine Total Protein Heparin-induced Plt Ab Hep Bs Antibody, Quant Crossmatch 12/18/16 12/18/16 12/18/16 05:50 09:09 16:46 WBC RBC Hgb Hct MCV MCHC RDW Plt Count Lymph % (Auto) K[place]t # Seg Neutrophils % Seg Neuts % (Manual) Lymphocytes % (Manual) Monocytes % (Manual) Nucleated RBC % Seg Neutrophils # Seg Neutrophils # Man Lymphocytes # (Manual) Monocytes # (Manual) Percent Retic Haptoglobin PT INR Fibrinogen D-Dimer POC ABG pH POC ABG pCO2 POC ABG pO2 Sodium Potassium Chloride Carbon Dioxide 17 L BUN 46 H Creatinine 5.0 H Glucose 252 H POC Glucose 349 H 324 H Lactic Acid Calcium 6.8 L Phosphorus Magnesium Iron TIBC Total Bilirubin Direct Bilirubin AST ALT Alkaline Phosphatase Lactate Dehydrogenase CK-MB (CK-2) Troponin T C-Reactive Protein Total Protein Albumin Triglycerides Cholesterol HDL Cholesterol Vitamin B12 Urine Creatinine Urine Total Protein Heparin-induced Plt Ab Hep Bs Antibody, Quant Crossmatch 12/18/16 12/19/16 12/19/16 21:14 08:12 10:23 WBC 13.7 H RBC 2.60 L Hgb 7.5 L Hct 23.1 L MCV MCHC RDW 15.7 H Plt Count Lymph % (Auto) 9.1 L K[place]t # 0.9 H Seg Neutrophils % 82.2 H Seg Neuts % (Manual) Lymphocytes % (Manual) Monocytes % (Manual) Nucleated RBC % Seg Neutrophils # 11.3 H Seg Neutrophils # Man Lymphocytes # (Manual) Monocytes # (Manual) Percent Retic Haptoglobin PT INR Fibrinogen D-Dimer POC ABG pH POC ABG pCO2 POC ABG pO2 Sodium Potassium Chloride Carbon Dioxide BUN Creatinine Glucose POC Glucose 316 H 464 H Lactic Acid Calcium Phosphorus Magnesium Iron TIBC Total Bilirubin Direct Bilirubin AST ALT Alkaline Phosphatase Lactate Dehydrogenase CK-MB (CK-2) Troponin T C-Reactive Protein Total Protein Albumin Triglycerides Cholesterol HDL Cholesterol Vitamin B12 Urine Creatinine Urine Total Protein Heparin-induced Plt Ab Hep Bs Antibody, Quant Crossmatch 12/19/16 12/19/16 10:23 11:39 WBC RBC Hgb Hct MCV MCHC RDW Plt Count Lymph % (Auto) K[place] # Seg Neutrophils % Seg Neuts % (Manual) Lymphocytes % (Manual) Monocytes % (Manual) Nucleated RBC % Seg Neutrophils # Seg Neutrophils # Man Lymphocytes # (Manual) Monocytes # (Manual) Percent Retic Haptoglobin PT INR Fibrinogen D-Dimer POC ABG pH POC ABG pCO2 POC ABG pO2 Sodium Potassium 3.5 L Chloride Carbon Dioxide 14 L BUN 22 H Creatinine 3.2 H Glucose 446 H POC Glucose 344 H Lactic Acid Calcium 6.9 L Phosphorus 1.70 L D Magnesium Iron TIBC Total Bilirubin Direct Bilirubin AST ALT Alkaline Phosphatase Lactate Dehydrogenase CK-MB (CK-2) Troponin T C-Reactive Protein Total Protein Albumin Triglycerides Cholesterol HDL Cholesterol Vitamin B12 Urine Creatinine Urine Total Protein Heparin-induced Plt Ab Hep Bs Antibody, Quant Crossmatch
[2016-12-19] MEDS ORDERED: NACL 0.9 (PRIMING MACHINE ONLY DIALYSIS) MC ONE (18:19)
[2016-12-19 19:58] LABS: Hematocrit 21.8 % (30.3-42.9); Hemoglobin 6.9 gm/dl (10.1-14.3); Mean Corpuscular HGB Conc 32 % (30-34); Mean Corpuscular Hemoglobin 29 pg (28-32); Mean Corpuscular Volume 92 fl (79-97); Platelet Count 267 K/mm3 (140-440); Red Blood Count 2.37 M/mm3 (3.65-5.03); Red Cell Distribution Width 16.7 % (13.2-15.2); White Blood Count 19.3 K/mm3 (4.5-11.0)
[2016-12-19 20:12] LABS: BUN/Creatinine Ratio 7.18; Calcium 6.9 mg/dL (8.4-10.2); Chloride 98.1 mmol/L (98-107); Phosphorous 2.4 mg/dL (2.5-4.5); Potassium 3.4 mmol/L (3.6-5.0)
[2016-12-19] MEDS: HEPARIN IV PRN (20:46)
[2016-12-19] MEDS: PROCRIT IV PRN (20:46)
[2016-12-20] MEDS: FLAGYL 500 MG/100 ML 500 MG/100 ML BAG IV SCH (00:30)
[2016-12-20] MEDS: REGLAN IV SCH ×2 (02:34→09:50)
[2016-12-20 06:53] LABS: BUN/Creatinine Ratio 6.15; Calcium 8.5 mg/dL (8.4-10.2); Chloride 92.4 mmol/L (98-107); Phosphorous 3.7 mg/dL (2.5-4.5); Potassium 4.4 mmol/L (3.6-5.0)
[2016-12-20 06:54] LABS: Basophils % (Auto) 0.6 % (0.0-1.8); Eosinophils % (Auto) 0.8 % (0.0-4.3); Hematocrit 23.5 % (30.3-42.9); Hemoglobin 7.3 gm/dl (10.1-14.3); Mean Corpuscular HGB Conc 31 % (30-34); Mean Corpuscular Hemoglobin 29 pg (28-32); Mean Corpuscular Volume 93 fl (79-97); Platelet Count 229 K/mm3 (140-440); Red Blood Count 2.54 M/mm3 (3.65-5.03); Red Cell Distribution Width 16.4 % (13.2-15.2); White Blood Count 17.5 K/mm3 (4.5-11.0)
[2016-12-20] MEDS: NOVOLOG SUB-Q SCH ×4 (08:00→22:46)
[2016-12-20] MEDS: LOVENOX SUB-Q SCH ×2 (09:50→10:29)
[2016-12-20] MEDS: PEPCID PO SCH (09:51)
[2016-12-20] MEDS: DILAUDID IV PRN (10:02)
[2016-12-20] MEDS: LOPRESSOR PO SCH ×2 (11:00→22:43)
--- NOTE | 2016-12-20 11:02 | Progress Note ---
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: D Qualified Code(s): E10.10 - Type 1 diabetes mellitus with ketoacidosis without coma Plan to address problem: Status post insulin drip, on sliding scale insulin, as per primary team (2) ESRD (end stage renal disease) on dialysis Current Visit: Yes Status: Acute Plan to address problem: Status post HD yesterday for ultrafiltration and clearance No indication for HD today Assess need for HD on daily basis Will evaluate patient in the morning for need for HD and if needed, will place HD orders Epogen dosing during HD for anemia management Hgb level 7.3 today, may need blood transfusion, repeat Hgb level in the morning Repeat BMP today at 1700 Obtain occult stool, repeat iron studies in the morning Renally dose medications Case management consulted for outpatient dialysis [place] [facility] [place] Obtain daily weight Strict intake and output Renal plan discussed with Dr Smart Continue supportive therapy (3) Hypertensive nephrosclerosis, stage 5 chronic kidney disease or end stage renal disease Current Visit: Yes Status: Acute Plan to address problem: Continue on current anti-hypertensive regimen for now, blood pressure in the 90s systolic this morning, will monitor and adjust as needed (4) Anemia Current Visit: Yes Status: Acute Qualifiers: Anemia type: A Iron deficiency anemia type: I Vitamin B12 deficiency anemia type: V Folate deficiency anemia type: F Bone marrow failure anemia type: B Hemolytic anemia type: H Other causes of anemia: O Chronic kidney disease stage: C Plan to address problem: Hgb level 7.3 today, may require blood transfusion if Hgb level continues to trend down Epogen dosing during HD for anemia management Obtain occult stool Repeat Iron studies in the morning (5) Leukocytosis Current Visit: Yes Status: Acute Qualifiers: Leukocytosis type: L Plan to address problem: Started on Levaquin 500 mg orally every 48 hours Subjective Date of service: 12/20/16 Principal diagnosis: Sepsis; Pneumonia; ASHELY on dialysis; Diabetes Interval history: Patient reports less shortness of breath today, denies vomiting. Patient complains of dry mouth, feels like she is dehydrated and fatigued. No family at bedside. Objective - Vital Signs Vital signs: Vital Signs - 12hr 12/20/16 12/20/1612/20/17 00:41 04:54 06:00 Temperature 98.9 F 97.6 F Pulse Rate 100 H Pulse Rate [ 111 H 116 H Right Radial] Respiratory 20 20 Rate Blood Pressure 141/84 116/62 [Right Arm] O2 Sat by Pulse 100 100 Oximetry 12/20/16 07:58 Temperature 98.2 F Pulse Rate Pulse Rate [ 125 H Right Radial] Respiratory 20 Rate Blood Pressure 95/54 [Right Arm] O2 Sat by Pulse 100 Oximetry - General Appearance General appearance: well-developed (no acute distress) EENT: ATNC (complains of dry mouth) Neck: no JVD Respiratory: Present: Other (Lung sounds decreased bilaterally, unlabored) Cardiology: tachycardia, S1S2, other (ACCESS: Right Perm Catheter intact) Gastrointestinal: normoactive bowel sounds, no tenderness Integumentary: warm and dry Neurologic: alert and oriented x3 Musculoskeletal: other (no edema to both lower extremities) Psychiatric: mood/affect appropriate, cooperative - Lab 12/20/16 06:00 12/20/16 06:00 Most recent lab results Calcium 8.5 mg/dL (8.4-10.2) D 12/20/16 06:00 Phosphorus 3.70 mg/dL (2.5-4.5) D 12/20/16 06:00 Magnesium 1.90 mg/dL (1.7-2.3) 12/11/16 04:30 Urine Creatinine 29.5 mg/dL (0.1-20.0) H 12/04/16 11:25 Urine Sodium 26 mEq/L 12/04/16 11:25 Urine Total Protein 33 mg/dL (5-11.8) H 12/04/16 11:25
--- NOTE | 2016-12-20 14:14 | Progress Note ---
Assessment and Plan Assessment and plan: Cardiac arrest with V. fib - Likely from hyperkalemia, currently patient is stable - Was treated with amiodarone - No recurrence ARF, ATN - Nephrology is following, she is going to continue hemodialysis Metabolic Acidosis - On bicarbonate - resolved Acute hypoxic respiratory failure extubated - Resolved DKA: - resolved - On sliding insulin Acute metabolic encephalopathy - resolved Leukocytosis +GNR in trach aspirate, pseudomonas aeruginosa - On PO levaquin - ID is following -DVT prophylaxis: SCDs only due to recent SAH Thrombocytopenia - Resolved Acute on chronic anemia of chronic disease s/p 2 unit of prbc, monitoring closely - Hemoglobin is 7.3 - Will follow and will dialyze if it is <7 Depression - Psych consulted and recommend O/P mental health follow up. Disposition - Patient needs O/P dialysis set up. History Interval history: Patient was seen and evaluated this morning, patient is not in pain or in distress. Hospitalist Physical - Physical exam Narrative exam: Not in cardiopulmonary distress. The patient appeared well nourished and normally developed. Vital signs as documented. Head exam is unremarkable. No scleral icterus . Neck is without jugular venous distension, thyromegaly, or carotid bruits. Lungs significant for wheezing. Cardiac exam reveals regular rate and Rhythm. First and second heart sounds normal. No murmurs, rubs or gallops. Abdominal exam reveals normal bowel sounds, no masses, no organomegaly and no aortic enlargement. Extremities are nonedematous and both femoral and pedal pulses are normal. LAB CLERK: Alert and oriented 3. No focal weakness. - Constitutional Vitals: Temp Pulse Resp BP Pulse Ox 98.2 F 125 H 20 95/54 100 12/20/16 07:58 12/20/16 07:58 12/20/16 07:58 12/20/16 07:58 12/20/16 07:58 General appearance: Present: no acute distress (resting comfortably) Results - Labs CBC & Chem 7: 12/20/16 06:00 12/20/16 06:00 Labs: Laboratory Last Values WBC 17.5 K/mm3 (4.5-11.0) H 12/20/16 06:00 RBC 2.54 M/mm3 (3.65-5.03) L 12/20/16 06:00 Hgb 7.3 gm/dl (10.1-14.3) L 12/20/16 06:00 Hct 23.5 % (30.3-42.9) L 12/20/16 06:00 MCV 93 fl (79-97) 12/20/16 06:00 MCH 29 pg (28-32) 12/20/16 06:00 MCHC 31 % (30-34) 12/20/16 06:00 RDW 16.4 % (13.2-15.2) H 12/20/16 06:00 Plt Count 229 K/mm3 (140-440) 12/20/16 06:00 Lymph % (Auto) 9.0 % (13.4-35.0) L 12/20/16 06:00 [place] % (Auto) 6.6 % (0.0-7.3) 12/20/16 06:00 Eos % (Auto) 0.8 % (0.0-4.3) 12/20/16 06:00 Baso % (Auto) 0.6 % (0.0-1.8) 12/20/16 06:00 Lymph # 1.6 K/mm3 (1.2-5.4) 12/20/16 06:00 Bandera # 1.1 K/mm3 (0.0-0.8) H 12/20/16 06:00 Eos # 0.1 K/mm3 (0.0-0.4) 12/20/16 06:00 Baso # 0.1 K/mm3 (0.0-0.1) 12/20/16 06:00 Add Manual Diff Complete 12/13/16 07:49 Total Counted 100 12/13/16 07:49 Seg Neutrophils % 83.0 % (40.0-70.0) H 12/20/16 06:00 Seg Neuts % (Manual) 89.0 % (40.0-70.0) H 12/13/16 07:49 Band Neutrophils % 1.0 % 12/13/16 07:49 Lymphocytes % (Manual) 7.0 % (13.4-35.0) L 12/13/16 07:49 Reactive Lymphs % (Man) 0 % 12/13/16 07:49 Monocytes % (Manual) 3.0 % (0.0-7.3) 12/13/16 07:49 Eosinophils % (Manual) 0 % (0.0-4.3) 12/13/16 07:49 Basophils % (Manual) 0 % (0.0-1.8) 12/13/16 07:49 Metamyelocytes % 0 % 12/13/16 07:49 Myelocytes % 0 % 12/13/16 07:49 Promyelocytes % 0 % 12/13/16 07:49 Blast Cells % 0 % 12/13/16 07:49 Nucleated RBC % Not Reportable 12/13/16 07:49 Seg Neutrophils # 14.5 K/mm3 (1.8-7.7) H 12/20/16 06:00 Seg Neutrophils # Man 21.4 K/mm3 (1.8-7.7) H 12/13/16 07:49 Band Neutrophils # 0.2 K/mm3 12/13/16 07:49 Lymphocytes # (Manual) 1.7 K/mm3 (1.2-5.4) 12/13/16 07:49 Abs React Lymphs (Man) 0.0 K/mm3 12/13/16 07:49 Monocytes # (Manual) 0.7 K/mm3 (0.0-0.8) 12/13/16 07:49 Eosinophils # (Manual) 0.0 K/mm3 (0.0-0.4) 12/13/16 07:49 Basophils # (Manual) 0.0 K/mm3 (0.0-0.1) 12/13/16 07:49 Metamyelocytes # 0.0 K/mm3 12/13/16 07:49 Myelocytes # 0.0 K/mm3 12/13/16 07:49 Promyelocytes # 0.0 K/mm3 12/13/16 07:49 Blast Cells # 0.0 K/mm3 12/13/16 07:49 WBC Morphology Not Reportable 12/13/16 07:49 Hypersegmented Neuts Not Reportable 12/13/16 07:49 Hyposegmented Neuts Not Reportable 12/13/16 07:49 Hypogranular Neuts Not Reportable 12/13/16 07:49 Smudge Cells Not Reportable 12/13/16 07:49 Toxic Granulation Not Reportable 12/13/16 07:49 Toxic Vacuolation Not Reportable 12/13/16 07:49 Dohle Bodies Not Reportable 12/13/16 07:49 Pelger-Huet Anomaly Not Reportable 12/13/16 07:49 Mary Rods Not Reportable 12/13/16 07:49 Platelet Estimate Cons 12/13/16 07:49 Clumped Platelets Not Reportable 12/13/16 07:49 Plt Clumps, EDTA Not Reportable 12/13/16 07:49 Large Platelets Rare 12/13/16 07:49 Giant Platelets Not Reportable 12/13/16 07:49 Platelet Satelliting Not Reportable 12/13/16 07:49 Plt Morphology Comment Not Reportable 12/13/16 07:49 RBC Morphology Not Reportable 12/13/16 07:49 Dimorphic RBCs Not Reportable 12/13/16 07:49 Polychromasia Not Reportable 12/13/16 07:49 Hypochromasia 1+ 12/13/16 07:49 Poikilocytosis Not Reportable 12/13/16 07:49 Anisocytosis 1+ 12/13/16 07:49 Microcytosis Not Reportable 12/13/16 07:49 Macrocytosis Not Reportable 12/13/16 07:49 Spherocytes Not Reportable 12/13/16 07:49 Pappenheimer Bodies Not Reportable 12/13/16 07:49 Sickle Cells Not Reportable 12/13/16 07:49 Target Cells Few 12/13/16 07:49 Tear Drop Cells Not Reportable 12/13/16 07:49 Ovalocytes Not Reportable 12/13/16 07:49 Helmet Cells Not Reportable 12/13/16 07:49 [place] Bodies Not Reportable 12/13/16 07:49 [place] Rings Not Reportable 12/13/16 07:49 Jerri Cells Not Reportable 12/13/16 07:49 Bite Cells Not Reportable 12/13/16 07:49 Crenated Cell Not Reportable 12/13/16 07:49 Elliptocytes Not Reportable 12/13/16 07:49 Acanthocytes (Spur) Not Reportable 12/13/16 07:49 Rouleaux Not Reportable 12/13/16 07:49 Hemoglobin C Crystals Not Reportable 12/13/16 07:49 Schistocytes Not Reportable 12/13/16 07:49 Malaria parasites Not Reportable 12/13/16 07:49 Percent Retic 0.23 % (0.78-2.58) L 12/09/16 11:29 Michael Bodies Not Reportable 12/13/16 07:49 Haptoglobin 271 mg/dL (43-212) H 12/08/16 21:30 Hem Pathologist Commnt No 12/13/16 07:49 PT 15.3 Sec. (12.2-14.9) H 12/08/16 19:00 INR 1.22 (0.87-1.13) H 12/08/16 19:00 APTT 36.2 Sec. (24.2-36.6) 12/08/16 19:00 Fibrinogen 563 mg/dl (211-480) H 12/08/16 19:00 D-Dimer 5507.36 ng/mlDDU (0-234) H 12/08/16 19:00 Heparin Anti-Xa, Unfract Negative (Negative) 12/09/16 13:27 POC ABG pH 7.326 (7.35-7.45) L 12/09/16 12:02 POC ABG pCO2 37.7 (35-45) 12/09/16 12:02 POC ABG pO2 115 (80-105) H 12/09/16 12:02 POC ABG HCO3 19.7 12/09/16 12:02 POC ABG Total CO2 21 12/09/16 12:02 POC ABG O2 Sat 98 12/09/16 12:02 POC ABG Base Excess -6 12/09/16 12:02 FiO2 30 % 12/09/16 12:02 Sodium 136 mmol/L (137-145) L 12/20/16 06:00 Potassium 4.4 mmol/L (3.6-5.0) D 12/20/16 06:00 Chloride 92.4 mmol/L (98-107) L 12/20/16 06:00 Carbon Dioxide 15 mmol/L (22-30) L 12/20/16 06:00 Anion Gap 33 mmol/L 12/20/16 06:00 BUN 16 mg/dL (7-17) 12/20/16 06:00 Creatinine 2.6 mg/dL (0.7-1.2) H 12/20/16 06:00 Estimated GFR 24 ml/min 12/20/16 06:00 BUN/Creatinine Ratio 6.15 % 12/20/16 06:00 Glucose 475 mg/dL (65-100) H 12/20/16 06:00 POC Glucose 397 (70-105) H 12/19/16 21:16 Lactic Acid 6.90 mmol/L (0.7-2.0) H* 12/07/16 07:30 Calcium 8.5 mg/dL (8.4-10.2) D 12/20/16 06:00 Phosphorus 3.70 mg/dL (2.5-4.5) D 12/20/16 06:00 Magnesium 1.90 mg/dL (1.7-2.3) 12/11/16 04:30 Iron 15 ug/dL (37-170) L 12/09/16 13:27 TIBC 134 mcg/dL (250-450) L 12/09/16 13:27 Ferritin 360.1 ng/mL (13.0-400.0) 12/09/16 13:27 Total Bilirubin 1.40 mg/dL (0.1-1.2) H 12/07/16 21:35 Direct Bilirubin 0.9 mg/dL (0-0.2) H 12/07/16 21:35 Indirect Bilirubin 0.5 mg/dL 12/07/16 21:35 AST 94 units/L (5-40) H 12/07/16 21:35 ALT 142 units/L (7-56) H 12/07/16 21:35 Alkaline Phosphatase 249 units/L (35-129) H 12/07/16 21:35 Lactate Dehydrogenase 382 units/L (91-180) H 12/08/16 19:00 Total Creatine Kinase 123 units/L (30-135) 12/04/16 09:55 CK-MB (CK-2) 4.6 ng/mL (0.0-4.0) H 12/04/16 09:55 CK-MB (CK-2) Rel Index 3.7 (0-4) 12/04/16 09:55 Troponin T 0.140 ng/mL (0.00-0.029) H* D 12/04/16 09:55 C-Reactive Protein 39.40 mg/dL (0.00-1.30) H 12/07/16 06:00 Total Protein 4.6 g/dL (6.3-8.2) L D 12/07/16 21:35 Albumin 2.1 g/dL (3.9-5) L 12/07/16 21:35 Albumin/Globulin Ratio 0.8 % 12/07/16 21:35 Triglycerides 570 mg/dL (2-149) H 12/04/16 07:55 Cholesterol 221 mg/dL (50-199) H 12/04/16 07:55 LDL Cholesterol Direct TNR 12/04/16 07:55 HDL Cholesterol 37 mg/dL (40-59) L 12/04/16 07:55 Cholesterol/HDL Ratio 5.97 % 12/04/16 07:55 Vitamin B12 > 2000 pg/mL (211-911) H 12/09/16 13:27 Folate 8.10 ng/mL (7.3-26.0) 12/09/16 13:27 TSH 1.600 mlU/mL (0.270-4.200) 12/03/16 23:20 Urine Color Yellow (Yellow) 12/04/16 11:25 Urine Turbidity Slightly-cloudy (Clear) 12/04/16 11:25 Urine pH 5.0 (5.0-7.0) 12/04/16 11:25 Ur Specific [place] 1.018 (1.003-1.030) 12/04/16 11:25 Urine Protein 30 mg/dl mg/dL (Negative) 12/04/16 11:25 Urine Glucose (UA) >=500 mg/dL (Negative) 12/04/16 11:25 Urine Ketones Tr mg/dL (Negative) 12/04/16 11:25 Urine Blood Sm (Negative) 12/04/16 11:25 Urine Nitrite Neg (Negative) 12/04/16 11:25 Urine Bilirubin Neg (Negative) 12/04/16 11:25 Urine Urobilinogen < 2.0 mg/dL (<2.0) 12/04/16 11:25 Ur Leukocyte Esterase Neg (Negative) 12/04/16 11:25 Urine WBC (Auto) 4.0 /HPF (0.0-6.0) 12/04/16 11:25 Urine RBC (Auto) 2.0 /HPF (0.0-6.0) 12/04/16 11:25 U Epithel Cells (Auto) < 1.0 /HPF (0-13.0) 12/04/16 11:25 Urine Mucus Few /HPF 12/04/16 11:25 Urine Osmolality 419 Mosm/kg 12/04/16 11:25 Urine Creatinine 29.5 mg/dL (0.1-20.0) H 12/04/16 11:25 Protein/Creatinin Ratio 1.12 12/04/16 11:25 Urine Sodium 26 mEq/L 12/04/16 11:25 Urine Total Protein 33 mg/dL (5-11.8) H 12/04/16 11:25 Urine Opiates Screen Presumptive negative 12/04/16 11:25 Urine Methadone Screen Presumptive negative 12/04/16 11:25 Ur Barbiturates Screen Presumptive negative 12/04/16 11:25 Ur Phencyclidine Scrn Presumptive negative 12/04/16 11:25 Ur Amphetamines Screen Presumptive negative 12/04/16 11:25 U Benzodiazepines Scrn Presumptive negative 12/04/16 11:25 Urine Cocaine Screen Presumptive negative 12/04/16 11:25 U Marijuana (THC) Screen Presumptive positive 12/04/16 11:25 Drugs of Abuse Note Disclamer 12/04/16 11:25 Heparin-induced Plt Ab Weak positive (Negative) H 12/09/16 13:27 UF Heparin High Dose 0 % Release 12/09/16 13:27 ADRIENNE UFH Low Dose 0.1 0 % Release 12/09/16 13:27 ADRIENNE UFH Low Dose 0.5 0 % Release 12/09/16 13:27 Hep Bs Antigen Non-reactive (Negative) 12/09/16 13:27 Hep Bs Antibody, Quant <5 mIU/mL (>=10) L 12/09/16 13:27 Hep B Core Total Ab Nonreactive (Nonreactive) 12/09/16 13:27 Hepatitis C Antibody Non-reactive (NonReactive) 12/09/16 13:27 HIV 1&2 Antibody Rapid Non react (Non React) 12/09/16 13:27 HIV P24 Antigen Non react (Non React) 12/09/16 13:27 Schistocytes Smear None seen 12/09/16 11:29 Blood Type O POSITIVE 12/08/16 08:46 Antibody Screen TNR 12/08/16 08:46 ISAIAH Antibody Screen Negative 12/08/16 08:46 Crossmatch See Detail 12/08/16 08:46
[2016-12-20] MEDS: PERCOCET 5/325 PO PRN (16:00)
--- NOTE | 2016-12-20 17:41 | Progress Note ---
Assessment and Plan - Patient Problems (1) Severe sepsis Current Visit: Yes Status: Deleted Plan to address problem: - resolved - complete AB's per ID recs (2) Cardiac arrest Current Visit: Yes Status: Acute Plan to address problem: - achieved ROSC and no recurrence (3) Acute renal failure Current Visit: No Status: Acute Qualifiers: Acute renal failure type: A Plan to address problem: - remains on dialysis and appears ESRD - s/p permacath placement - per nephrology otherwise - making some urine (4) Acute respiratory failure with hypoxemia Current Visit: No Status: Acute Plan to address problem: - improved - continue to wean oxygen for sats > 94% - will need bronchoscopy if pneumonia does not resolve over 4-6 weeks - grew pseudomonas and appropriately treated with clinical improvement (5) DKA (diabetic ketoacidoses) Current Visit: Yes Status: Acute Qualifiers: Diabetes mellitus type: type 1 Diabetes mellitus complication detail: without coma Diabetes mellitus prison insulin use: D Qualified Code(s): E10.10 - Type 1 diabetes mellitus with ketoacidosis without coma Plan to address problem: - resolved - continue SSI - on 70/30 insulin (6) Anemia Current Visit: Yes Status: Acute Qualifiers: Anemia type: A Iron deficiency anemia type: I Vitamin B12 deficiency anemia type: V Folate deficiency anemia type: F Bone marrow failure anemia type: B Hemolytic anemia type: H Other causes of anemia: O Chronic kidney disease stage: C Plan to address problem: - multifactorial - continue to treat azotemia - full w/up per attending (7) Discharge planning issues Current Visit: No Status: Acute Plan to address problem: - awaits outpatient dialysis set-up ...will re-evaluate in am & prn Subjective Date of service: 12/20/16 Principal diagnosis: Sepsis; Pneumonia; ASHELY on dialysis; Diabetes Interval history: Seen and examined at bedside; 24 hour events reviewed; nursing and respiratory care staff consulted; no adverse overnight events reported to me; resting peacefuly in bed; denies acute chest pains or increased SOB; no hemoptysis Objective Vital Signs - 12hr 12/20/16 12/20/16 12/20/16 06:00 07:58 16:08 Temperature 98.2 F 98.3 F Pulse Rate 100 H Pulse Rate [ 125 H 117 H Right Radial] Respiratory 20 20 Rate Blood Pressure 95/54 117/70 [Right Arm] O2 Sat by Pulse 100 99 Oximetry Constitutional: no acute distress, alert Eyes: non-icteric ENT: oropharynx moist Neck: supple, no lymphadenopathy Effort: normal Ascultation: Bilateral: diminished breath sounds, rales (scant in bases) Cardiovascular: regular rate and rhythm Gastrointestinal: normoactive bowel sounds, soft, non-tender, non-distended Integumentary: normal Extremities: no cyanosis, no edema, pulses normal, no ischemia or petechiae Neurologic: normal mental status, non-focal exam, pupils equal and round, motor strength normal and Psychiatric: mood appropriate, affect normal CBC and BMP: 01/02/17 05:10 01/02/17 05:10 ABG, PT/INR, D-dimer: ABG POC ABG pH 7.326 (7.35-7.45) L 12/09/16 12:02 POC ABG pCO2 37.7 (35-45) 12/09/16 12:02 POC ABG pO2 115 (80-105) H 12/09/16 12:02 POC ABG HCO3 19.7 12/09/16 12:02 POC ABG Total CO2 21 12/09/16 12:02 POC ABG O2 Sat 98 12/09/16 12:02 PT/INR, D-dimer PT 15.3 Sec. (12.2-14.9) H 12/08/16 19:00 INR 1.22 (0.87-1.13) H 12/08/16 19:00 D-Dimer 5507.36 ng/mlDDU (0-234) H 12/08/16 19:00 Abnormal lab findings: Abnormal Labs 12/04/16 12/04/16 12/04/16 01:19 01:36 02:21 WBC RBC Hgb Hct MCV MCHC RDW Plt Count Lymph % (Auto) Teller # Seg Neutrophils % Seg Neuts % (Manual) Lymphocytes % (Manual) Monocytes % (Manual) Nucleated RBC % Seg Neutrophils # Seg Neutrophils # Man Lymphocytes # (Manual) Monocytes # (Manual) Percent Retic Haptoglobin PT INR Fibrinogen D-Dimer POC ABG pH 6.759 L POC ABG pCO2 POC ABG pO2 437 H Sodium Potassium Chloride Carbon Dioxide BUN Creatinine Glucose POC Glucose > 500 H Lactic Acid Calcium Phosphorus 15.70 H Magnesium 4.30 H Iron TIBC Total Bilirubin Direct Bilirubin AST ALT Alkaline Phosphatase Lactate Dehydrogenase CK-MB (CK-2) Troponin T C-Reactive Protein Total Protein Albumin Triglycerides Cholesterol HDL Cholesterol Vitamin B12 Urine Creatinine Urine Total Protein Heparin-induced Plt Ab Hep Bs Antibody, Quant Crossmatch 12/04/16 12/04/16 12/04/16 03:55 04:00 05:11 WBC RBC Hgb Hct MCV MCHC RDW Plt Count Lymph % (Auto) Teller # Seg Neutrophils % Seg Neuts % (Manual) Lymphocytes % (Manual) Monocytes % (Manual) Nucleated RBC % Seg Neutrophils # Seg Neutrophils # Man Lymphocytes # (Manual) Monocytes # (Manual) Percent Retic Haptoglobin PT INR Fibrinogen D-Dimer POC ABG pH POC ABG pCO2 POC ABG pO2 Sodium Potassium Chloride 91.4 L Carbon Dioxide 8 L* BUN 55 H Creatinine 2.8 H Glucose 1610 H* POC Glucose > 500 H > 500 H Lactic Acid Calcium Phosphorus Magnesium Iron TIBC Total Bilirubin Direct Bilirubin AST ALT Alkaline Phosphatase Lactate Dehydrogenase CK-MB (CK-2) Troponin T C-Reactive Protein Total Protein Albumin Triglycerides Cholesterol HDL Cholesterol Vitamin B12 Urine Creatinine Urine Total Protein Heparin-induced Plt Ab Hep Bs Antibody, Quant Crossmatch 12/04/16 12/04/16 12/04/16 05:40 05:54 06:58 WBC RBC Hgb Hct MCV MCHC RDW Plt Count Lymph % (Auto) Teller # Seg Neutrophils % Seg Neuts % (Manual) Lymphocytes % (Manual) Monocytes % (Manual) Nucleated RBC % Seg Neutrophils # Seg Neutrophils # Man Lymphocytes # (Manual) Monocytes # (Manual) Percent Retic Haptoglobin PT INR Fibrinogen D-Dimer POC ABG pH 7.154 L POC ABG pCO2 27.5 L POC ABG pO2 111 H Sodium Potassium Chloride Carbon Dioxide BUN Creatinine Glucose POC Glucose > 500 H > 500 H Lactic Acid Calcium Phosphorus Magnesium Iron TIBC Total Bilirubin Direct Bilirubin AST ALT Alkaline Phosphatase Lactate Dehydrogenase CK-MB (CK-2) Troponin T C-Reactive Protein Total Protein Albumin Triglycerides Cholesterol HDL Cholesterol Vitamin B12 Urine Creatinine Urine Total Protein Heparin-induced Plt Ab Hep Bs Antibody, Quant Crossmatch 12/04/16 12/04/16 12/04/16 07:49 07:55 07:55 WBC RBC Hgb Hct MCV MCHC RDW Plt Count Lymph % (Auto) Teller # Seg Neutrophils % Seg Neuts % (Manual) Lymphocytes % (Manual) Monocytes % (Manual) Nucleated RBC % Seg Neutrophils # Seg Neutrophils # Man Lymphocytes # (Manual) Monocytes # (Manual) Percent Retic Haptoglobin PT INR Fibrinogen D-Dimer POC ABG pH POC ABG pCO2 POC ABG pO2 Sodium Potassium 3.3 L Chloride Carbon Dioxide 9 L* BUN 53 H Creatinine 2.9 H Glucose 1229 H* POC Glucose > 500 H Lactic Acid Calcium Phosphorus Magnesium Iron TIBC Total Bilirubin Direct Bilirubin AST ALT Alkaline Phosphatase Lactate Dehydrogenase CK-MB (CK-2) Troponin T 0.111 H* D C-Reactive Protein Total Protein Albumin Triglycerides 570 H Cholesterol 221 H HDL Cholesterol 37 L Vitamin B12 Urine Creatinine Urine Total Protein Heparin-induced Plt Ab Hep Bs Antibody, Quant Crossmatch 12/04/16 12/04/16 12/04/16 07:55 09:55 09:55 WBC RBC 2.90 L Hgb 8.5 L Hct 30.2 L D MCV 105 H D MCHC 28 L RDW 19.2 H Plt Count Lymph % (Auto) Teller # Seg Neutrophils % Seg Neuts % (Manual) Lymphocytes % (Manual) 11.0 L Monocytes % (Manual) Nucleated RBC % Seg Neutrophils # Seg Neutrophils # Man Lymphocytes # (Manual) 0.6 L Monocytes # (Manual) Percent Retic Haptoglobin PT INR Fibrinogen D-Dimer POC ABG pH POC ABG pCO2 POC ABG pO2 Sodium Potassium 3.1 L Chloride Carbon Dioxide 7 L* BUN 51 H Creatinine 3.2 H Glucose 969 H* POC Glucose Lactic Acid Calcium 10.4 H D Phosphorus Magnesium Iron TIBC Total Bilirubin Direct Bilirubin AST ALT Alkaline Phosphatase Lactate Dehydrogenase CK-MB (CK-2) 4.6 H Troponin T 0.140 H* D C-Reactive Protein Total Protein Albumin Triglycerides Cholesterol HDL Cholesterol Vitamin B12 Urine Creatinine Urine Total Protein Heparin-induced Plt Ab Hep Bs Antibody, Quant Crossmatch 12/04/16 12/04/16 12/04/16 09:55 10:37 11:25 WBC RBC Hgb Hct MCV MCHC RDW Plt Count Lymph % (Auto) Teller # Seg Neutrophils % Seg Neuts % (Manual) Lymphocytes % (Manual) Monocytes % (Manual) Nucleated RBC % Seg Neutrophils # Seg Neutrophils # Man Lymphocytes # (Manual) Monocytes # (Manual) Percent Retic Haptoglobin PT INR Fibrinogen D-Dimer POC ABG pH 7.215 L POC ABG pCO2 18.8 L POC ABG pO2 193 H Sodium Potassium Chloride Carbon Dioxide BUN Creatinine Glucose POC Glucose Lactic Acid Calcium Phosphorus Magnesium 3.70 H Iron TIBC Total Bilirubin Direct Bilirubin AST ALT Alkaline Phosphatase Lactate Dehydrogenase CK-MB (CK-2) Troponin T C-Reactive Protein Total Protein Albumin Triglycerides Cholesterol HDL Cholesterol Vitamin B12 Urine Creatinine 29.5 H Urine Total Protein 33 H Heparin-induced Plt Ab Hep Bs Antibody, Quant Crossmatch 12/04/16 12/04/16 12/04/16 12:00 12:48 13:00 WBC RBC Hgb Hct MCV MCHC RDW Plt Count Lymph % (Auto) Teller # Seg Neutrophils % Seg Neuts % (Manual) Lymphocytes % (Manual) Monocytes % (Manual) Nucleated RBC % Seg Neutrophils # Seg Neutrophils # Man Lymphocytes # (Manual) Monocytes # (Manual) Percent Retic Haptoglobin PT INR Fibrinogen D-Dimer POC ABG pH POC ABG pCO2 POC ABG pO2 Sodium 149 H 150 H Potassium 3.2 L 3.2 L Chloride 109.1 H Carbon Dioxide 8 L* 8 L* BUN 52 H 49 H Creatinine 3.4 H 3.1 H Glucose 723 H* 574 H* POC Glucose Lactic Acid 18.80 H* Calcium Phosphorus Magnesium Iron TIBC Total Bilirubin Direct Bilirubin AST ALT Alkaline Phosphatase Lactate Dehydrogenase CK-MB (CK-2) Troponin T C-Reactive Protein Total Protein Albumin Triglycerides Cholesterol HDL Cholesterol Vitamin B12 Urine Creatinine Urine Total Protein Heparin-induced Plt Ab Hep Bs Antibody, Quant Crossmatch 12/04/16 12/04/16 12/04/16 13:01 14:41 16:06 WBC RBC Hgb Hct MCV MCHC RDW Plt Count Lymph % (Auto) Teller # Seg Neutrophils % Seg Neuts % (Manual) Lymphocytes % (Manual) Monocytes % (Manual) Nucleated RBC % Seg Neutrophils # Seg Neutrophils # Man Lymphocytes # (Manual) Monocytes # (Manual) Percent Retic Haptoglobin PT INR Fibrinogen D-Dimer POC ABG pH POC ABG pCO2 POC ABG pO2 Sodium 151 H Potassium 3.2 L Chloride 108.1 H Carbon Dioxide 10 L BUN 49 H Creatinine 3.0 H Glucose 383 H POC Glucose 292 H Lactic Acid Calcium Phosphorus Magnesium Iron TIBC Total Bilirubin Direct Bilirubin AST ALT Alkaline Phosphatase Lactate Dehydrogenase CK-MB (CK-2) Troponin T C-Reactive Protein 3.50 H Total Protein Albumin Triglycerides Cholesterol HDL Cholesterol Vitamin B12 Urine Creatinine Urine Total Protein Heparin-induced Plt Ab Hep Bs Antibody, Quant Crossmatch 12/04/16 12/04/16 12/04/16 17:15 17:25 18:07 WBC RBC Hgb Hct MCV MCHC RDW Plt Count Lymph % (Auto) Teller # Seg Neutrophils % Seg Neuts % (Manual) Lymphocytes % (Manual) Monocytes % (Manual) Nucleated RBC % Seg Neutrophils # Seg Neutrophils # Man Lymphocytes # (Manual) Monocytes # (Manual) Percent Retic Haptoglobin PT INR Fibrinogen D-Dimer POC ABG pH 7.255 L POC ABG pCO2 16.9 L POC ABG pO2 169 H Sodium Potassium Chloride Carbon Dioxide BUN Creatinine Glucose POC Glucose 246 H Lactic Acid 18.50 H* Calcium Phosphorus Magnesium Iron TIBC Total Bilirubin Direct Bilirubin AST ALT Alkaline Phosphatase Lactate Dehydrogenase CK-MB (CK-2) Troponin T C-Reactive Protein Total Protein Albumin Triglycerides Cholesterol HDL Cholesterol Vitamin B12 Urine Creatinine Urine Total Protein Heparin-induced Plt Ab Hep Bs Antibody, Quant Crossmatch 12/04/16 12/04/16 12/04/16 19:34 20:31 21:15 WBC RBC Hgb Hct MCV MCHC RDW Plt Count Lymph % (Auto) Teller # Seg Neutrophils % Seg Neuts % (Manual) Lymphocytes % (Manual) Monocytes % (Manual) Nucleated RBC % Seg Neutrophils # Seg Neutrophils # Man Lymphocytes # (Manual) Monocytes # (Manual) Percent Retic Haptoglobin PT INR Fibrinogen D-Dimer POC ABG pH POC ABG pCO2 POC ABG pO2 Sodium Potassium Chloride Carbon Dioxide BUN Creatinine Glucose POC Glucose 189 H 126 H 139 H Lactic Acid Calcium Phosphorus Magnesium Iron TIBC Total Bilirubin Direct Bilirubin AST ALT Alkaline Phosphatase Lactate Dehydrogenase CK-MB (CK-2) Troponin T C-Reactive Protein Total Protein Albumin Triglycerides Cholesterol HDL Cholesterol Vitamin B12 Urine Creatinine Urine Total Protein Heparin-induced Plt Ab Hep Bs Antibody, Quant Crossmatch 12/04/16 12/04/16 12/04/16 21:25 22:37 23:35 WBC RBC Hgb Hct MCV MCHC RDW Plt Count Lymph % (Auto) Teller # Seg Neutrophils % Seg Neuts % (Manual) Lymphocytes % (Manual) Monocytes % (Manual) Nucleated RBC % Seg Neutrophils # Seg Neutrophils # Man Lymphocytes # (Manual) Monocytes # (Manual) Percent Retic Haptoglobin PT INR Fibrinogen D-Dimer POC ABG pH 7.294 L POC ABG pCO2 16.7 L POC ABG pO2 169 H Sodium Potassium Chloride Carbon Dioxide BUN Creatinine Glucose POC Glucose 131 H 106 H Lactic Acid Calcium Phosphorus Magnesium Iron TIBC Total Bilirubin Direct Bilirubin AST ALT Alkaline Phosphatase Lactate Dehydrogenase CK-MB (CK-2) Troponin T C-Reactive Protein Total Protein Albumin Triglycerides Cholesterol HDL Cholesterol Vitamin B12 Urine Creatinine Urine Total Protein Heparin-induced Plt Ab Hep Bs Antibody, Quant Crossmatch 12/05/16 12/05/16 12/05/16 02:40 02:50 02:50 WBC RBC Hgb Hct MCV MCHC RDW Plt Count Lymph % (Auto) Teller # Seg Neutrophils % Seg Neuts % (Manual) Lymphocytes % (Manual) Monocytes % (Manual) Nucleated RBC % Seg Neutrophils # Seg Neutrophils # Man Lymphocytes # (Manual) Monocytes # (Manual) Percent Retic Haptoglobin PT INR Fibrinogen D-Dimer POC ABG pH POC ABG pCO2 POC ABG pO2 Sodium 151 H Potassium Chloride 113.8 H Carbon Dioxide 12 L BUN 46 H Creatinine 3.2 H Glucose 165 H POC Glucose 109 H Lactic Acid 9.80 H* Calcium 8.3 L Phosphorus Magnesium Iron TIBC Total Bilirubin Direct Bilirubin AST ALT Alkaline Phosphatase Lactate Dehydrogenase CK-MB (CK-2) Troponin T C-Reactive Protein Total Protein Albumin Triglycerides Cholesterol HDL Cholesterol Vitamin B12 Urine Creatinine Urine Total Protein Heparin-induced Plt Ab Hep Bs Antibody, Quant Crossmatch 12/05/16 12/05/16 12/05/16 04:01 04:30 04:30 WBC 19.1 H RBC 2.91 L Hgb 8.0 L Hct 25.4 L MCV MCHC RDW 17.8 H Plt Count Lymph % (Auto) Teller # Seg Neutrophils % Seg Neuts % (Manual) 17.0 L Lymphocytes % (Manual) 7.0 L Monocytes % (Manual) Nucleated RBC % 3.0 H Seg Neutrophils # Seg Neutrophils # Man Lymphocytes # (Manual) Monocytes # (Manual) Percent Retic Haptoglobin PT INR Fibrinogen D-Dimer POC ABG pH POC ABG pCO2 POC ABG pO2 Sodium 152 H Potassium Chloride 113.5 H Carbon Dioxide 12 L BUN 47 H Creatinine 3.2 H Glucose 133 H POC Glucose 179 H Lactic Acid Calcium 8.3 L Phosphorus 1.00 L D Magnesium Iron TIBC Total Bilirubin Direct Bilirubin AST ALT Alkaline Phosphatase Lactate Dehydrogenase CK-MB (CK-2) Troponin T C-Reactive Protein Total Protein Albumin Triglycerides Cholesterol HDL Cholesterol Vitamin B12 Urine Creatinine Urine Total Protein Heparin-induced Plt Ab Hep Bs Antibody, Quant Crossmatch 12/05/16 12/05/16 12/05/16 05:32 08:01 08:48 WBC RBC Hgb Hct MCV MCHC RDW Plt Count Lymph % (Auto) Teller # Seg Neutrophils % Seg Neuts % (Manual) Lymphocytes % (Manual) Monocytes % (Manual) Nucleated RBC % Seg Neutrophils # Seg Neutrophils # Man Lymphocytes # (Manual) Monocytes # (Manual) Percent Retic Haptoglobin PT INR Fibrinogen D-Dimer POC ABG pH POC ABG pCO2 17.6 L POC ABG pO2 62 L Sodium Potassium Chloride Carbon Dioxide BUN Creatinine Glucose POC Glucose 126 H 130 H Lactic Acid Calcium Phosphorus Magnesium Iron TIBC Total Bilirubin Direct Bilirubin AST ALT Alkaline Phosphatase Lactate Dehydrogenase CK-MB (CK-2) Troponin T C-Reactive Protein Total Protein Albumin Triglycerides Cholesterol HDL Cholesterol Vitamin B12 Urine Creatinine Urine Total Protein Heparin-induced Plt Ab Hep Bs Antibody, Quant Crossmatch 12/05/16 12/05/16 12/05/16 08:54 12:01 15:15 WBC RBC Hgb Hct MCV MCHC RDW Plt Count Lymph % (Auto) Teller # Seg Neutrophils % Seg Neuts % (Manual) Lymphocytes % (Manual) Monocytes % (Manual) Nucleated RBC % Seg Neutrophils # Seg Neutrophils # Man Lymphocytes # (Manual) Monocytes # (Manual) Percent Retic Haptoglobin PT INR Fibrinogen D-Dimer POC ABG pH POC ABG pCO2 POC ABG pO2 Sodium Potassium Chloride Carbon Dioxide BUN Creatinine Glucose POC Glucose 157 H 117 H 166 H Lactic Acid Calcium Phosphorus Magnesium Iron TIBC Total Bilirubin Direct Bilirubin AST ALT Alkaline Phosphatase Lactate Dehydrogenase CK-MB (CK-2) Troponin T C-Reactive Protein Total Protein Albumin Triglycerides Cholesterol HDL Cholesterol Vitamin B12 Urine Creatinine Urine Total Protein Heparin-induced Plt Ab Hep Bs Antibody, Quant Crossmatch 12/05/16 12/05/16 12/05/16 16:10 16:55 17:08 WBC RBC Hgb Hct MCV MCHC RDW Plt Count Lymph % (Auto) Teller # Seg Neutrophils % Seg Neuts % (Manual) Lymphocytes % (Manual) Monocytes % (Manual) Nucleated RBC % Seg Neutrophils # Seg Neutrophils # Man Lymphocytes # (Manual) Monocytes # (Manual) Percent Retic Haptoglobin PT INR Fibrinogen D-Dimer POC ABG pH POC ABG pCO2 POC ABG pO2 Sodium Potassium Chloride Carbon Dioxide BUN Creatinine Glucose POC Glucose 178 H 169 H Lactic Acid Calcium Phosphorus 5.00 H D Magnesium Iron TIBC Total Bilirubin Direct Bilirubin AST ALT Alkaline Phosphatase Lactate Dehydrogenase CK-MB (CK-2) Troponin T C-Reactive Protein Total Protein Albumin Triglycerides Cholesterol HDL Cholesterol Vitamin B12 Urine Creatinine Urine Total Protein Heparin-induced Plt Ab Hep Bs Antibody, Quant Crossmatch 12/05/16 12/05/16 12/05/16 18:08 18:51 20:04 WBC RBC Hgb Hct MCV MCHC RDW Plt Count Lymph % (Auto) Teller # Seg Neutrophils % Seg Neuts % (Manual) Lymphocytes % (Manual) Monocytes % (Manual) Nucleated RBC % Seg Neutrophils # Seg Neutrophils # Man Lymphocytes # (Manual) Monocytes # (Manual) Percent Retic Haptoglobin PT INR Fibrinogen D-Dimer POC ABG pH POC ABG pCO2 POC ABG pO2 Sodium Potassium Chloride Carbon Dioxide BUN Creatinine Glucose POC Glucose 147 H 113 H 64 L Lactic Acid Calcium Phosphorus Magnesium Iron TIBC Total Bilirubin Direct Bilirubin AST ALT Alkaline Phosphatase Lactate Dehydrogenase CK-MB (CK-2) Troponin T C-Reactive Protein Total Protein Albumin Triglycerides Cholesterol HDL Cholesterol Vitamin B12 Urine Creatinine Urine Total Protein Heparin-induced Plt Ab Hep Bs Antibody, Quant Crossmatch 12/05/16 12/05/16 12/05/16 21:34 22:08 23:19 WBC RBC Hgb Hct MCV MCHC RDW Plt Count Lymph % (Auto) Teller # Seg Neutrophils % Seg Neuts % (Manual) Lymphocytes % (Manual) Monocytes % (Manual) Nucleated RBC % Seg Neutrophils # Seg Neutrophils # Man Lymphocytes # (Manual) Monocytes # (Manual) Percent Retic Haptoglobin PT INR Fibrinogen D-Dimer POC ABG pH 7.303 L POC ABG pCO2 18.3 L POC ABG pO2 73 L Sodium Potassium Chloride Carbon Dioxide BUN Creatinine Glucose POC Glucose 141 H 200 H Lactic Acid Calcium Phosphorus Magnesium Iron TIBC Total Bilirubin Direct Bilirubin AST ALT Alkaline Phosphatase Lactate Dehydrogenase CK-MB (CK-2) Troponin T C-Reactive Protein Total Protein Albumin Triglycerides Cholesterol HDL Cholesterol Vitamin B12 Urine Creatinine Urine Total Protein Heparin-induced Plt Ab Hep Bs Antibody, Quant Crossmatch 12/06/16 12/06/16 12/06/16 00:01 01:09 02:00 WBC RBC Hgb Hct MCV MCHC RDW Plt Count Lymph % (Auto) Teller # Seg Neutrophils % Seg Neuts % (Manual) Lymphocytes % (Manual) Monocytes % (Manual) Nucleated RBC % Seg Neutrophils # Seg Neutrophils # Man Lymphocytes # (Manual) Monocytes # (Manual) Percent Retic Haptoglobin PT INR Fibrinogen D-Dimer POC ABG pH POC ABG pCO2 POC ABG pO2 Sodium Potassium Chloride Carbon Dioxide BUN Creatinine Glucose POC Glucose 211 H 116 H 57 L Lactic Acid Calcium Phosphorus Magnesium Iron TIBC Total Bilirubin Direct Bilirubin AST ALT Alkaline Phosphatase Lactate Dehydrogenase CK-MB (CK-2) Troponin T C-Reactive Protein Total Protein Albumin Triglycerides Cholesterol HDL Cholesterol Vitamin B12 Urine Creatinine Urine Total Protein Heparin-induced Plt Ab Hep Bs Antibody, Quant Crossmatch 12/06/16 12/06/16 12/06/16 04:14 04:50 04:50 WBC RBC 2.68 L Hgb 7.6 L Hct 23.2 L MCV MCHC RDW 18.9 H Plt Count Lymph % (Auto) Teller # Seg Neutrophils % Seg Neuts % (Manual) 32.0 L Lymphocytes % (Manual) Monocytes % (Manual) Nucleated RBC % 3.0 H Seg Neutrophils # Seg Neutrophils # Man Lymphocytes # (Manual) 0.9 L Monocytes # (Manual) Percent Retic Haptoglobin PT INR Fibrinogen D-Dimer POC ABG pH POC ABG pCO2 POC ABG pO2 Sodium Potassium 5.8 H D Chloride 111.5 H Carbon Dioxide 11 L BUN 52 H Creatinine 3.8 H Glucose 186 H POC Glucose 133 H Lactic Acid Calcium 6.5 L D Phosphorus 5.80 H Magnesium Iron TIBC Total Bilirubin Direct Bilirubin AST ALT Alkaline Phosphatase Lactate Dehydrogenase CK-MB (CK-2) Troponin T C-Reactive Protein Total Protein Albumin Triglycerides Cholesterol HDL Cholesterol Vitamin B12 Urine Creatinine Urine Total Protein Heparin-induced Plt Ab Hep Bs Antibody, Quant Crossmatch 12/06/16 12/06/16 12/06/16 04:50 05:04 05:07 WBC RBC Hgb Hct MCV MCHC RDW Plt Count Lymph % (Auto) Teller # Seg Neutrophils % Seg Neuts % (Manual) Lymphocytes % (Manual) Monocytes % (Manual) Nucleated RBC % Seg Neutrophils # Seg Neutrophils # Man Lymphocytes # (Manual) Monocytes # (Manual) Percent Retic Haptoglobin PT INR Fibrinogen D-Dimer POC ABG pH POC ABG pCO2 13.0 L POC ABG pO2 111 H Sodium Potassium Chloride Carbon Dioxide BUN Creatinine Glucose POC Glucose 127 H Lactic Acid 6.50 H* Calcium Phosphorus Magnesium Iron TIBC Total Bilirubin Direct Bilirubin AST ALT Alkaline Phosphatase Lactate Dehydrogenase CK-MB (CK-2) Troponin T C-Reactive Protein Total Protein Albumin Triglycerides Cholesterol HDL Cholesterol Vitamin B12 Urine Creatinine Urine Total Protein Heparin-induced Plt Ab Hep Bs Antibody, Quant Crossmatch 12/06/16 12/06/16 12/06/16 06:10 06:54 07:46 WBC RBC Hgb Hct MCV MCHC RDW Plt Count Lymph % (Auto) Teller # Seg Neutrophils % Seg Neuts % (Manual) Lymphocytes % (Manual) Monocytes % (Manual) Nucleated RBC % Seg Neutrophils # Seg Neutrophils # Man Lymphocytes # (Manual) Monocytes # (Manual) Percent Retic Haptoglobin PT INR Fibrinogen D-Dimer POC ABG pH POC ABG pCO2 POC ABG pO2 Sodium Potassium Chloride Carbon Dioxide BUN Creatinine Glucose POC Glucose 219 H 237 H 158 H Lactic Acid Calcium Phosphorus Magnesium Iron TIBC Total Bilirubin Direct Bilirubin AST ALT Alkaline Phosphatase Lactate Dehydrogenase CK-MB (CK-2) Troponin T C-Reactive Protein Total Protein Albumin Triglycerides Cholesterol HDL Cholesterol Vitamin B12 Urine Creatinine Urine Total Protein Heparin-induced Plt Ab Hep Bs Antibody, Quant Crossmatch 12/06/16 12/06/16 12/06/16 08:55 10:27 11:58 WBC RBC Hgb Hct MCV MCHC RDW Plt Count Lymph % (Auto) Teller # Seg Neutrophils % Seg Neuts % (Manual) Lymphocytes % (Manual) Monocytes % (Manual) Nucleated RBC % Seg Neutrophils # Seg Neutrophils # Man Lymphocytes # (Manual) Monocytes # (Manual) Percent Retic Haptoglobin PT INR Fibrinogen D-Dimer POC ABG pH POC ABG pCO2 POC ABG pO2 Sodium Potassium Chloride Carbon Dioxide BUN Creatinine Glucose POC Glucose 40 L 128 H 144 H Lactic Acid Calcium Phosphorus Magnesium Iron TIBC Total Bilirubin Direct Bilirubin AST ALT Alkaline Phosphatase Lactate Dehydrogenase CK-MB (CK-2) Troponin T C-Reactive Protein Total Protein Albumin Triglycerides Cholesterol HDL Cholesterol Vitamin B12 Urine Creatinine Urine Total Protein Heparin-induced Plt Ab Hep Bs Antibody, Quant Crossmatch 12/06/16 12/06/16 12/06/16 18:14 19:00 19:06 WBC RBC Hgb Hct MCV MCHC RDW Plt Count Lymph % (Auto) Teller # Seg Neutrophils % Seg Neuts % (Manual) Lymphocytes % (Manual) Monocytes % (Manual) Nucleated RBC % Seg Neutrophils # Seg Neutrophils # Man Lymphocytes # (Manual) Monocytes # (Manual) Percent Retic Haptoglobin PT INR Fibrinogen D-Dimer POC ABG pH POC ABG pCO2 POC ABG pO2 Sodium 149 H Potassium 5.6 H Chloride 115.9 H Carbon Dioxide 13 L BUN 56 H Creatinine 4.3 H Glucose 124 H POC Glucose 55 L 148 H Lactic Acid Calcium 6.0 L Phosphorus Magnesium Iron TIBC Total Bilirubin Direct Bilirubin AST ALT Alkaline Phosphatase Lactate Dehydrogenase CK-MB (CK-2) Troponin T C-Reactive Protein Total Protein Albumin Triglycerides Cholesterol HDL Cholesterol Vitamin B12 Urine Creatinine Urine Total Protein Heparin-induced Plt Ab Hep Bs Antibody, Quant Crossmatch 12/06/16 12/06/16 12/07/16 21:24 21:51 02:32 WBC RBC Hgb Hct MCV MCHC RDW Plt Count Lymph % (Auto) Teller # Seg Neutrophils % Seg Neuts % (Manual) Lymphocytes % (Manual) Monocytes % (Manual) Nucleated RBC % Seg Neutrophils # Seg Neutrophils # Man Lymphocytes # (Manual) Monocytes # (Manual) Percent Retic Haptoglobin PT INR Fibrinogen D-Dimer POC ABG pH POC ABG pCO2 17.0 L POC ABG pO2 142 H Sodium Potassium Chloride Carbon Dioxide BUN Creatinine Glucose POC Glucose 107 H 175 H Lactic Acid Calcium Phosphorus Magnesium Iron TIBC Total Bilirubin Direct Bilirubin AST ALT Alkaline Phosphatase Lactate Dehydrogenase CK-MB (CK-2) Troponin T C-Reactive Protein Total Protein Albumin Triglycerides Cholesterol HDL Cholesterol Vitamin B12 Urine Creatinine Urine Total Protein Heparin-induced Plt Ab Hep Bs Antibody, Quant Crossmatch 12/07/16 12/07/16 12/07/16 05:01 05:25 06:00 WBC RBC 2.52 L Hgb 7.1 L Hct 22.1 L MCV MCHC RDW 19.3 H Plt Count 90 L Lymph % (Auto) Teller # Seg Neutrophils % Seg Neuts % (Manual) 75.0 H Lymphocytes % (Manual) 11.0 L Monocytes % (Manual) Nucleated RBC % Seg Neutrophils # Seg Neutrophils # Man Lymphocytes # (Manual) 0.7 L Monocytes # (Manual) Percent Retic Haptoglobin PT INR Fibrinogen D-Dimer POC ABG pH 7.300 L POC ABG pCO2 17.1 L POC ABG pO2 140 H Sodium Potassium Chloride Carbon Dioxide BUN Creatinine Glucose POC Glucose 279 H Lactic Acid Calcium Phosphorus Magnesium Iron TIBC Total Bilirubin Direct Bilirubin AST ALT Alkaline Phosphatase Lactate Dehydrogenase CK-MB (CK-2) Troponin T C-Reactive Protein Total Protein Albumin Triglycerides Cholesterol HDL Cholesterol Vitamin B12 Urine Creatinine Urine Total Protein Heparin-induced Plt Ab Hep Bs Antibody, Quant Crossmatch 12/07/16 12/07/16 12/07/16 06:00 06:00 07:30 WBC RBC Hgb Hct MCV MCHC RDW Plt Count Lymph % (Auto) Teller # Seg Neutrophils % Seg Neuts % (Manual) Lymphocytes % (Manual) Monocytes % (Manual) Nucleated RBC % Seg Neutrophils # Seg Neutrophils # Man Lymphocytes # (Manual) Monocytes # (Manual) Percent Retic Haptoglobin PT INR Fibrinogen D-Dimer POC ABG pH POC ABG pCO2 POC ABG pO2 Sodium Potassium Chloride Carbon Dioxide BUN Creatinine Glucose POC Glucose Lactic Acid 6.90 H* Calcium Phosphorus 6.80 H Magnesium Iron TIBC Total Bilirubin Direct Bilirubin AST ALT Alkaline Phosphatase Lactate Dehydrogenase CK-MB (CK-2) Troponin T C-Reactive Protein 39.40 H Total Protein Albumin Triglycerides Cholesterol HDL Cholesterol Vitamin B12 Urine Creatinine Urine Total Protein Heparin-induced Plt Ab Hep Bs Antibody, Quant Crossmatch 12/07/16 12/07/16 12/07/16 08:40 10:53 14:31 WBC RBC Hgb Hct MCV MCHC RDW Plt Count Lymph % (Auto) Teller # Seg Neutrophils % Seg Neuts % (Manual) Lymphocytes % (Manual) Monocytes % (Manual) Nucleated RBC % Seg Neutrophils # Seg Neutrophils # Man Lymphocytes # (Manual) Monocytes # (Manual) Percent Retic Haptoglobin PT INR Fibrinogen D-Dimer POC ABG pH POC ABG pCO2 POC ABG pO2 Sodium Potassium 7.0 H* D Chloride 112.4 H Carbon Dioxide 8 L* BUN 61 H Creatinine 5.1 H Glucose 213 H POC Glucose 353 H 52 L Lactic Acid Calcium 5.8 L* Phosphorus Magnesium Iron TIBC Total Bilirubin Direct Bilirubin AST ALT Alkaline Phosphatase Lactate Dehydrogenase CK-MB (CK-2) Troponin T C-Reactive Protein Total Protein Albumin Triglycerides Cholesterol HDL Cholesterol Vitamin B12 Urine Creatinine Urine Total Protein Heparin-induced Plt Ab Hep Bs Antibody, Quant Crossmatch 12/07/16 12/07/16 12/07/16 14:45 15:33 16:22 WBC RBC Hgb Hct MCV MCHC RDW Plt Count Lymph % (Auto) Teller # Seg Neutrophils % Seg Neuts % (Manual) Lymphocytes % (Manual) Monocytes % (Manual) Nucleated RBC % Seg Neutrophils # Seg Neutrophils # Man Lymphocytes # (Manual) Monocytes # (Manual) Percent Retic Haptoglobin PT 17.5 H INR 1.44 H Fibrinogen D-Dimer POC ABG pH POC ABG pCO2 POC ABG pO2 Sodium Potassium Chloride Carbon Dioxide BUN Creatinine Glucose POC Glucose < 40 L 118 H Lactic Acid Calcium Phosphorus Magnesium Iron TIBC Total Bilirubin Direct Bilirubin AST ALT Alkaline Phosphatase Lactate Dehydrogenase CK-MB (CK-2) Troponin T C-Reactive Protein Total Protein Albumin Triglycerides Cholesterol HDL Cholesterol Vitamin B12 Urine Creatinine Urine Total Protein Heparin-induced Plt Ab Hep Bs Antibody, Quant Crossmatch 12/07/16 12/07/16 12/07/16 21:35 21:35 21:58 WBC RBC Hgb Hct MCV MCHC RDW Plt Count Lymph % (Auto) Teller # Seg Neutrophils % Seg Neuts % (Manual) Lymphocytes % (Manual) Monocytes % (Manual) Nucleated RBC % Seg Neutrophils # Seg Neutrophils # Man Lymphocytes # (Manual) Monocytes # (Manual) Percent Retic Haptoglobin PT INR Fibrinogen D-Dimer POC ABG pH POC ABG pCO2 POC ABG pO2 Sodium 150 H Potassium 3.3 L D Chloride 111.4 H Carbon Dioxide 21 L D BUN 22 H Creatinine 2.6 H Glucose 23 L* POC Glucose < 40 L Lactic Acid Calcium Phosphorus Magnesium Iron TIBC Total Bilirubin 1.40 H Direct Bilirubin 0.9 H AST 94 H ALT 142 H Alkaline Phosphatase 249 H Lactate Dehydrogenase CK-MB (CK-2) Troponin T C-Reactive Protein Total Protein 4.6 L D Albumin 2.1 L Triglycerides Cholesterol HDL Cholesterol Vitamin B12 Urine Creatinine Urine Total Protein Heparin-induced Plt Ab Hep Bs Antibody, Quant Crossmatch 12/07/16 12/08/16 12/08/16 23:31 04:43 04:50 WBC RBC 2.35 L Hgb 6.6 L Hct 20.1 L MCV MCHC RDW 17.8 H Plt Count 48 L Lymph % (Auto) Teller # Seg Neutrophils % Seg Neuts % (Manual) Lymphocytes % (Manual) Monocytes % (Manual) Nucleated RBC % Seg Neutrophils # Seg Neutrophils # Man Lymphocytes # (Manual) 0.9 L Monocytes # (Manual) Percent Retic Haptoglobin PT INR Fibrinogen D-Dimer POC ABG pH 7.586 H POC ABG pCO2 17.7 L POC ABG pO2 150 H Sodium Potassium Chloride Carbon Dioxide BUN Creatinine Glucose POC Glucose 42 L Lactic Acid Calcium Phosphorus Magnesium Iron TIBC Total Bilirubin Direct Bilirubin AST ALT Alkaline Phosphatase Lactate Dehydrogenase CK-MB (CK-2) Troponin T C-Reactive Protein Total Protein Albumin Triglycerides Cholesterol HDL Cholesterol Vitamin B12 Urine Creatinine Urine Total Protein Heparin-induced Plt Ab Hep Bs Antibody, Quant Crossmatch 12/08/16 12/08/16 12/08/16 04:50 04:59 06:54 WBC RBC Hgb Hct MCV MCHC RDW Plt Count Lymph % (Auto) Teller # Seg Neutrophils % Seg Neuts % (Manual) Lymphocytes % (Manual) Monocytes % (Manual) Nucleated RBC % Seg Neutrophils # Seg Neutrophils # Man Lymphocytes # (Manual) Monocytes # (Manual) Percent Retic Haptoglobin PT INR Fibrinogen D-Dimer POC ABG pH POC ABG pCO2 POC ABG pO2 Sodium 149 H Potassium 3.2 L Chloride 111.8 H Carbon Dioxide 17 L BUN 26 H Creatinine 3.4 H Glucose 163 H POC Glucose 204 H 203 H Lactic Acid Calcium 7.7 L Phosphorus 2.40 L D Magnesium Iron TIBC Total Bilirubin Direct Bilirubin AST ALT Alkaline Phosphatase Lactate Dehydrogenase CK-MB (CK-2) Troponin T C-Reactive Protein Total Protein Albumin Triglycerides Cholesterol HDL Cholesterol Vitamin B12 Urine Creatinine Urine Total Protein Heparin-induced Plt Ab Hep Bs Antibody, Quant Crossmatch 12/08/16 12/08/16 12/08/16 08:04 08:46 08:46 WBC RBC Hgb Hct MCV MCHC RDW Plt Count Lymph % (Auto) Teller # Seg Neutrophils % Seg Neuts % (Manual) Lymphocytes % (Manual) Monocytes % (Manual) Nucleated RBC % Seg Neutrophils # Seg Neutrophils # Man Lymphocytes # (Manual) Monocytes # (Manual) Percent Retic Haptoglobin PT INR Fibrinogen D-Dimer POC ABG pH POC ABG pCO2 POC ABG pO2 Sodium 147 H Potassium 2.9 L* Chloride 110.6 H Carbon Dioxide 17 L BUN 28 H Creatinine 3.6 H Glucose 127 H POC Glucose 205 H Lactic Acid Calcium 7.3 L Phosphorus Magnesium Iron TIBC Total Bilirubin Direct Bilirubin AST ALT Alkaline Phosphatase Lactate Dehydrogenase CK-MB (CK-2) Troponin T C-Reactive Protein Total Protein Albumin Triglycerides Cholesterol HDL Cholesterol Vitamin B12 Urine Creatinine Urine Total Protein Heparin-induced Plt Ab Hep Bs Antibody, Quant Crossmatch See Detail 12/08/16 12/08/16 12/08/16 12:36 19:00 19:00 WBC RBC Hgb Hct MCV MCHC RDW Plt Count Lymph % (Auto) Teller # Seg Neutrophils % Seg Neuts % (Manual) Lymphocytes % (Manual) Monocytes % (Manual) Nucleated RBC % Seg Neutrophils # Seg Neutrophils # Man Lymphocytes # (Manual) Monocytes # (Manual) Percent Retic Haptoglobin PT 15.3 H INR 1.22 H Fibrinogen 563 H D-Dimer 5507.36 H POC ABG pH POC ABG pCO2 POC ABG pO2 Sodium Potassium Chloride Carbon Dioxide 21 L BUN Creatinine 1.7 H D Glucose 155 H POC Glucose 181 H Lactic Acid Calcium Phosphorus Magnesium Iron TIBC Total Bilirubin Direct Bilirubin AST ALT Alkaline Phosphatase Lactate Dehydrogenase CK-MB (CK-2) Troponin T C-Reactive Protein Total Protein Albumin Triglycerides Cholesterol HDL Cholesterol Vitamin B12 Urine Creatinine Urine Total Protein Heparin-induced Plt Ab Hep Bs Antibody, Quant Crossmatch 12/08/16 12/08/16 12/08/16 19:00 19:00 21:30 WBC RBC 2.76 L Hgb 7.8 L Hct 23.7 L MCV MCHC RDW 17.0 H Plt Count 38 L Lymph % (Auto) Teller # Seg Neutrophils % Seg Neuts % (Manual) Lymphocytes % (Manual) Monocytes % (Manual) Nucleated RBC % Seg Neutrophils # Seg Neutrophils # Man Lymphocytes # (Manual) Monocytes # (Manual) Percent Retic Haptoglobin 271 H PT INR Fibrinogen D-Dimer POC ABG pH POC ABG pCO2 POC ABG pO2 Sodium Potassium Chloride Carbon Dioxide BUN Creatinine Glucose POC Glucose Lactic Acid Calcium Phosphorus Magnesium Iron TIBC Total Bilirubin Direct Bilirubin AST ALT Alkaline Phosphatase Lactate Dehydrogenase 382 H CK-MB (CK-2) Troponin T C-Reactive Protein Total Protein Albumin Triglycerides Cholesterol HDL Cholesterol Vitamin B12 Urine Creatinine Urine Total Protein Heparin-induced Plt Ab Hep Bs Antibody, Quant Crossmatch 12/08/16 12/08/16 12/09/16 23:32 23:44 05:22 WBC RBC Hgb Hct MCV MCHC RDW Plt Count Lymph % (Auto) Teller # Seg Neutrophils % Seg Neuts % (Manual) Lymphocytes % (Manual) Monocytes % (Manual) Nucleated RBC % Seg Neutrophils # Seg Neutrophils # Man Lymphocytes # (Manual) Monocytes # (Manual) Percent Retic Haptoglobin PT INR Fibrinogen D-Dimer POC ABG pH 7.498 H POC ABG pCO2 25.2 L POC ABG pO2 137 H Sodium Potassium Chloride Carbon Dioxide BUN Creatinine Glucose POC Glucose 311 H 113 H Lactic Acid Calcium Phosphorus Magnesium Iron TIBC Total Bilirubin Direct Bilirubin AST ALT Alkaline Phosphatase Lactate Dehydrogenase CK-MB (CK-2) Troponin T C-Reactive Protein Total Protein Albumin Triglycerides Cholesterol HDL Cholesterol Vitamin B12 Urine Creatinine Urine Total Protein Heparin-induced Plt Ab Hep Bs Antibody, Quant Crossmatch 12/09/16 12/09/16 12/09/16 06:00 11:29 11:59 WBC RBC Hgb Hct MCV MCHC RDW Plt Count Lymph % (Auto) Teller # Seg Neutrophils % Seg Neuts % (Manual) Lymphocytes % (Manual) Monocytes % (Manual) Nucleated RBC % Seg Neutrophils # Seg Neutrophils # Man Lymphocytes # (Manual) Monocytes # (Manual) Percent Retic 0.23 L Haptoglobin PT INR Fibrinogen D-Dimer POC ABG pH POC ABG pCO2 POC ABG pO2 Sodium Potassium Chloride 110.2 H Carbon Dioxide 18 L BUN 19 H Creatinine 2.5 H Glucose 105 H POC Glucose 254 H Lactic Acid Calcium Phosphorus 2.00 L Magnesium Iron TIBC Total Bilirubin Direct Bilirubin AST ALT Alkaline Phosphatase Lactate Dehydrogenase CK-MB (CK-2) Troponin T C-Reactive Protein Total Protein Albumin Triglycerides Cholesterol HDL Cholesterol Vitamin B12 Urine Creatinine Urine Total Protein Heparin-induced Plt Ab Hep Bs Antibody, Quant Crossmatch 12/09/16 12/09/16 12/09/16 12:02 13:27 13:27 WBC RBC Hgb Hct MCV MCHC RDW Plt Count Lymph % (Auto) Teller # Seg Neutrophils % Seg Neuts % (Manual) Lymphocytes % (Manual) Monocytes % (Manual) Nucleated RBC % Seg Neutrophils # Seg Neutrophils # Man Lymphocytes # (Manual) Monocytes # (Manual) Percent Retic Haptoglobin PT INR Fibrinogen D-Dimer POC ABG pH 7.326 L POC ABG pCO2 POC ABG pO2 115 H Sodium Potassium Chloride Carbon Dioxide BUN Creatinine Glucose POC Glucose Lactic Acid Calcium Phosphorus Magnesium Iron 15 L TIBC 134 L Total Bilirubin Direct Bilirubin AST ALT Alkaline Phosphatase Lactate Dehydrogenase CK-MB (CK-2) Troponin T C-Reactive Protein Total Protein Albumin Triglycerides Cholesterol HDL Cholesterol Vitamin B12 > 2000 H Urine Creatinine Urine Total Protein Heparin-induced Plt Ab Hep Bs Antibody, Quant Crossmatch 12/09/16 12/09/16 12/09/16 13:27 13:27 16:28 WBC RBC Hgb Hct MCV MCHC RDW Plt Count Lymph % (Auto) Teller # Seg Neutrophils % Seg Neuts % (Manual) Lymphocytes % (Manual) Monocytes % (Manual) Nucleated RBC % Seg Neutrophils # Seg Neutrophils # Man Lymphocytes # (Manual) Monocytes # (Manual) Percent Retic Haptoglobin PT INR Fibrinogen D-Dimer POC ABG pH POC ABG pCO2 POC ABG pO2 Sodium Potassium Chloride Carbon Dioxide BUN Creatinine Glucose POC Glucose 199 H Lactic Acid Calcium Phosphorus Magnesium Iron TIBC Total Bilirubin Direct Bilirubin AST ALT Alkaline Phosphatase Lactate Dehydrogenase CK-MB (CK-2) Troponin T C-Reactive Protein Total Protein Albumin Triglycerides Cholesterol HDL Cholesterol Vitamin B12 Urine Creatinine Urine Total Protein Heparin-induced Plt Ab Weak positive H Hep Bs Antibody, Quant <5 L Crossmatch 12/09/16 12/09/16 12/10/16 23:27 Unknown 05:36 WBC 11.3 H RBC 2.92 L Hgb 8.4 L Hct 25.3 L MCV MCHC RDW 16.9 H Plt Count 31 L Lymph % (Auto) Teller # Seg Neutrophils % Seg Neuts % (Manual) Lymphocytes % (Manual) Monocytes % (Manual) Nucleated RBC % Seg Neutrophils # Seg Neutrophils # Man Lymphocytes # (Manual) Monocytes # (Manual) Percent Retic Haptoglobin PT INR Fibrinogen D-Dimer POC ABG pH POC ABG pCO2 POC ABG pO2 Sodium Potassium Chloride Carbon Dioxide BUN Creatinine Glucose POC Glucose 247 H 248 H Lactic Acid Calcium Phosphorus Magnesium Iron TIBC Total Bilirubin Direct Bilirubin AST ALT Alkaline Phosphatase Lactate Dehydrogenase CK-MB (CK-2) Troponin T C-Reactive Protein Total Protein Albumin Triglycerides Cholesterol HDL Cholesterol Vitamin B12 Urine Creatinine Urine Total Protein Heparin-induced Plt Ab Hep Bs Antibody, Quant Crossmatch 12/10/16 12/10/16 12/10/16 09:55 09:55 11:49 WBC 21.2 H RBC 3.37 L Hgb 9.6 L Hct 29.5 L MCV MCHC RDW 16.3 H Plt Count 102 L D Lymph % (Auto) Teller # Seg Neutrophils % Seg Neuts % (Manual) Lymphocytes % (Manual) Monocytes % (Manual) Nucleated RBC % Seg Neutrophils # Seg Neutrophils # Man Lymphocytes # (Manual) Monocytes # (Manual) Percent Retic Haptoglobin PT INR Fibrinogen D-Dimer POC ABG pH POC ABG pCO2 POC ABG pO2 Sodium Potassium Chloride 107.4 H Carbon Dioxide 21 L BUN 37 H Creatinine 4.2 H D Glucose 174 H POC Glucose 265 H Lactic Acid Calcium Phosphorus Magnesium Iron TIBC Total Bilirubin Direct Bilirubin AST ALT Alkaline Phosphatase Lactate Dehydrogenase CK-MB (CK-2) Troponin T C-Reactive Protein Total Protein Albumin Triglycerides Cholesterol HDL Cholesterol Vitamin B12 Urine Creatinine Urine Total Protein Heparin-induced Plt Ab Hep Bs Antibody, Quant Crossmatch 12/10/16 12/10/16 12/11/16 17:56 23:44 04:30 WBC 23.5 H RBC 3.46 L Hgb 9.7 L Hct 30.1 L MCV MCHC RDW 16.4 H Plt Count 115 L Lymph % (Auto) Teller # Seg Neutrophils % Seg Neuts % (Manual) 84.0 H Lymphocytes % (Manual) 5.0 L Monocytes % (Manual) 10.0 H Nucleated RBC % 1.0 H Seg Neutrophils # Seg Neutrophils # Man 19.7 H Lymphocytes # (Manual) Monocytes # (Manual) 2.4 H Percent Retic Haptoglobin PT INR Fibrinogen D-Dimer POC ABG pH POC ABG pCO2 POC ABG pO2 Sodium Potassium Chloride Carbon Dioxide BUN Creatinine Glucose POC Glucose 118 H 378 H Lactic Acid Calcium Phosphorus Magnesium Iron TIBC Total Bilirubin Direct Bilirubin AST ALT Alkaline Phosphatase Lactate Dehydrogenase CK-MB (CK-2) Troponin T C-Reactive Protein Total Protein Albumin Triglycerides Cholesterol HDL Cholesterol Vitamin B12 Urine Creatinine Urine Total Protein Heparin-induced Plt Ab Hep Bs Antibody, Quant Crossmatch 12/11/16 12/11/16 12/11/16 04:30 05:33 12:48 WBC RBC Hgb Hct MCV MCHC RDW Plt Count Lymph % (Auto) Teller # Seg Neutrophils % Seg Neuts % (Manual) Lymphocytes % (Manual) Monocytes % (Manual) Nucleated RBC % Seg Neutrophils # Seg Neutrophils # Man Lymphocytes # (Manual) Monocytes # (Manual) Percent Retic Haptoglobin PT INR Fibrinogen D-Dimer POC ABG pH POC ABG pCO2 POC ABG pO2 Sodium Potassium Chloride Carbon Dioxide 21 L BUN 50 H Creatinine 4.8 H Glucose 303 H POC Glucose 335 H 325 H Lactic Acid Calcium 8.2 L Phosphorus Magnesium Iron TIBC Total Bilirubin Direct Bilirubin AST ALT Alkaline Phosphatase Lactate Dehydrogenase CK-MB (CK-2) Troponin T C-Reactive Protein Total Protein Albumin Triglycerides Cholesterol HDL Cholesterol Vitamin B12 Urine Creatinine Urine Total Protein Heparin-induced Plt Ab Hep Bs Antibody, Quant Crossmatch 12/11/16 12/11/16 12/12/16 17:49 21:16 00:49 WBC RBC Hgb Hct MCV MCHC RDW Plt Count Lymph % (Auto) Teller # Seg Neutrophils % Seg Neuts % (Manual) Lymphocytes % (Manual) Monocytes % (Manual) Nucleated RBC % Seg Neutrophils # Seg Neutrophils # Man Lymphocytes # (Manual) Monocytes # (Manual) Percent Retic Haptoglobin PT INR Fibrinogen D-Dimer POC ABG pH POC ABG pCO2 POC ABG pO2 Sodium Potassium Chloride Carbon Dioxide BUN Creatinine Glucose POC Glucose 368 H 162 H 225 H Lactic Acid Calcium Phosphorus Magnesium Iron TIBC Total Bilirubin Direct Bilirubin AST ALT Alkaline Phosphatase Lactate Dehydrogenase CK-MB (CK-2) Troponin T C-Reactive Protein Total Protein Albumin Triglycerides Cholesterol HDL Cholesterol Vitamin B12 Urine Creatinine Urine Total Protein Heparin-induced Plt Ab Hep Bs Antibody, Quant Crossmatch 12/12/16 12/12/16 12/12/16 06:09 07:52 08:18 WBC 24.1 H RBC 3.16 L Hgb 9.0 L Hct 29.4 L MCV MCHC RDW 16.6 H Plt Count 96 L Lymph % (Auto) Teller # Seg Neutrophils % Seg Neuts % (Manual) 75.0 H Lymphocytes % (Manual) Monocytes % (Manual) Nucleated RBC % Seg Neutrophils # Seg Neutrophils # Man 18.1 H Lymphocytes # (Manual) Monocytes # (Manual) 1.4 H Percent Retic Haptoglobin PT INR Fibrinogen D-Dimer POC ABG pH POC ABG pCO2 POC ABG pO2 Sodium Potassium Chloride Carbon Dioxide BUN Creatinine Glucose POC Glucose 428 H 418 H Lactic Acid Calcium Phosphorus Magnesium Iron TIBC Total Bilirubin Direct Bilirubin AST ALT Alkaline Phosphatase Lactate Dehydrogenase CK-MB (CK-2) Troponin T C-Reactive Protein Total Protein Albumin Triglycerides Cholesterol HDL Cholesterol Vitamin B12 Urine Creatinine Urine Total Protein Heparin-induced Plt Ab Hep Bs Antibody, Quant Crossmatch 12/12/16 12/12/16 12/12/16 08:18 11:31 17:03 WBC RBC Hgb Hct MCV MCHC RDW Plt Count Lymph % (Auto) Teller # Seg Neutrophils % Seg Neuts % (Manual) Lymphocytes % (Manual) Monocytes % (Manual) Nucleated RBC % Seg Neutrophils # Seg Neutrophils # Man Lymphocytes # (Manual) Monocytes # (Manual) Percent Retic Haptoglobin PT INR Fibrinogen D-Dimer POC ABG pH POC ABG pCO2 POC ABG pO2 Sodium Potassium Chloride Carbon Dioxide 12 L D BUN 41 H Creatinine 4.5 H Glucose 369 H POC Glucose 212 H 422 H Lactic Acid Calcium Phosphorus Magnesium Iron TIBC Total Bilirubin Direct Bilirubin AST ALT Alkaline Phosphatase Lactate Dehydrogenase CK-MB (CK-2) Troponin T C-Reactive Protein Total Protein Albumin Triglycerides Cholesterol HDL Cholesterol Vitamin B12 Urine Creatinine Urine Total Protein Heparin-induced Plt Ab Hep Bs Antibody, Quant Crossmatch 12/12/16 12/13/16 12/13/16 21:35 07:49 07:49 WBC 24.0 H RBC 2.90 L Hgb 8.3 L Hct 25.8 L MCV MCHC RDW 15.5 H Plt Count 120 L Lymph % (Auto) Teller # Seg Neutrophils % Seg Neuts % (Manual) 89.0 H Lymphocytes % (Manual) 7.0 L Monocytes % (Manual) Nucleated RBC % Seg Neutrophils # Seg Neutrophils # Man 21.4 H Lymphocytes # (Manual) Monocytes # (Manual) Percent Retic Haptoglobin PT INR Fibrinogen D-Dimer POC ABG pH POC ABG pCO2 POC ABG pO2 Sodium Potassium 3.2 L Chloride Carbon Dioxide BUN 21 H Creatinine 3.0 H Glucose 21 L* POC Glucose 185 H Lactic Acid Calcium Phosphorus Magnesium Iron TIBC Total Bilirubin Direct Bilirubin AST ALT Alkaline Phosphatase Lactate Dehydrogenase CK-MB (CK-2) Troponin T C-Reactive Protein Total Protein Albumin Triglycerides Cholesterol HDL Cholesterol Vitamin B12 Urine Creatinine Urine Total Protein Heparin-induced Plt Ab Hep Bs Antibody, Quant Crossmatch 12/13/16 12/13/16 12/13/16 09:57 11:02 16:52 WBC RBC Hgb Hct MCV MCHC RDW Plt Count Lymph % (Auto) Teller # Seg Neutrophils % Seg Neuts % (Manual) Lymphocytes % (Manual) Monocytes % (Manual) Nucleated RBC % Seg Neutrophils # Seg Neutrophils # Man Lymphocytes # (Manual) Monocytes # (Manual) Percent Retic Haptoglobin PT INR Fibrinogen D-Dimer POC ABG pH POC ABG pCO2 POC ABG pO2 Sodium Potassium Chloride Carbon Dioxide BUN Creatinine Glucose POC Glucose < 40 L 231 H 312 H Lactic Acid Calcium Phosphorus Magnesium Iron TIBC Total Bilirubin Direct Bilirubin AST ALT Alkaline Phosphatase Lactate Dehydrogenase CK-MB (CK-2) Troponin T C-Reactive Protein Total Protein Albumin Triglycerides Cholesterol HDL Cholesterol Vitamin B12 Urine Creatinine Urine Total Protein Heparin-induced Plt Ab Hep Bs Antibody, Quant Crossmatch 12/13/16 12/14/16 12/14/16 21:32 07:07 07:07 WBC 16.7 H RBC 2.80 L Hgb 7.9 L Hct 24.7 L MCV MCHC RDW 15.4 H Plt Count 131 L Lymph % (Auto) 13.1 L Teller # 1.2 H Seg Neutrophils % 78.3 H Seg Neuts % (Manual) Lymphocytes % (Manual) Monocytes % (Manual) Nucleated RBC % Seg Neutrophils # 13.1 H Seg Neutrophils # Man Lymphocytes # (Manual) Monocytes # (Manual) Percent Retic Haptoglobin PT INR Fibrinogen D-Dimer POC ABG pH POC ABG pCO2 POC ABG pO2 Sodium Potassium 3.5 L Chloride Carbon Dioxide BUN 30 H Creatinine 4.6 H D Glucose 181 H POC Glucose 275 H Lactic Acid Calcium 7.7 L Phosphorus Magnesium Iron TIBC Total Bilirubin Direct Bilirubin AST ALT Alkaline Phosphatase Lactate Dehydrogenase CK-MB (CK-2) Troponin T C-Reactive Protein Total Protein Albumin Triglycerides Cholesterol HDL Cholesterol Vitamin B12 Urine Creatinine Urine Total Protein Heparin-induced Plt Ab Hep Bs Antibody, Quant Crossmatch 12/14/16 12/14/16 12/14/16 07:46 11:35 16:24 WBC RBC Hgb Hct MCV MCHC RDW Plt Count Lymph % (Auto) Teller # Seg Neutrophils % Seg Neuts % (Manual) Lymphocytes % (Manual) Monocytes % (Manual) Nucleated RBC % Seg Neutrophils # Seg Neutrophils # Man Lymphocytes # (Manual) Monocytes # (Manual) Percent Retic Haptoglobin PT INR Fibrinogen D-Dimer POC ABG pH POC ABG pCO2 POC ABG pO2 Sodium Potassium Chloride Carbon Dioxide BUN Creatinine Glucose POC Glucose 189 H 254 H 466 H Lactic Acid Calcium Phosphorus Magnesium Iron TIBC Total Bilirubin Direct Bilirubin AST ALT Alkaline Phosphatase Lactate Dehydrogenase CK-MB (CK-2) Troponin T C-Reactive Protein Total Protein Albumin Triglycerides Cholesterol HDL Cholesterol Vitamin B12 Urine Creatinine Urine Total Protein Heparin-induced Plt Ab Hep Bs Antibody, Quant Crossmatch 12/14/16 12/15/16 12/15/16 20:57 06:27 07:46 WBC RBC Hgb Hct MCV MCHC RDW Plt Count Lymph % (Auto) Teller # Seg Neutrophils % Seg Neuts % (Manual) Lymphocytes % (Manual) Monocytes % (Manual) Nucleated RBC % Seg Neutrophils # Seg Neutrophils # Man Lymphocytes # (Manual) Monocytes # (Manual) Percent Retic Haptoglobin PT INR Fibrinogen D-Dimer POC ABG pH POC ABG pCO2 POC ABG pO2 Sodium Potassium Chloride Carbon Dioxide BUN Creatinine Glucose POC Glucose 301 H 183 H 231 H Lactic Acid Calcium Phosphorus Magnesium Iron TIBC Total Bilirubin Direct Bilirubin AST ALT Alkaline Phosphatase Lactate Dehydrogenase CK-MB (CK-2) Troponin T C-Reactive Protein Total Protein Albumin Triglycerides Cholesterol HDL Cholesterol Vitamin B12 Urine Creatinine Urine Total Protein Heparin-induced Plt Ab Hep Bs Antibody, Quant Crossmatch 12/15/16 12/15/16 12/15/16 11:38 15:34 20:51 WBC RBC Hgb Hct MCV MCHC RDW Plt Count Lymph % (Auto) Teller # Seg Neutrophils % Seg Neuts % (Manual) Lymphocytes % (Manual) Monocytes % (Manual) Nucleated RBC % Seg Neutrophils # Seg Neutrophils # Man Lymphocytes # (Manual) Monocytes # (Manual) Percent Retic Haptoglobin PT INR Fibrinogen D-Dimer POC ABG pH POC ABG pCO2 POC ABG pO2 Sodium Potassium Chloride Carbon Dioxide BUN Creatinine Glucose POC Glucose 375 H 313 H 274 H Lactic Acid Calcium Phosphorus Magnesium Iron TIBC Total Bilirubin Direct Bilirubin AST ALT Alkaline Phosphatase Lactate Dehydrogenase CK-MB (CK-2) Troponin T C-Reactive Protein Total Protein Albumin Triglycerides Cholesterol HDL Cholesterol Vitamin B12 Urine Creatinine Urine Total Protein Heparin-induced Plt Ab Hep Bs Antibody, Quant Crossmatch 12/16/16 12/16/16 12/16/16 08:26 09:12 17:13 WBC RBC Hgb Hct MCV MCHC RDW Plt Count Lymph % (Auto) Teller # Seg Neutrophils % Seg Neuts % (Manual) Lymphocytes % (Manual) Monocytes % (Manual) Nucleated RBC % Seg Neutrophils # Seg Neutrophils # Man Lymphocytes # (Manual) Monocytes # (Manual) Percent Retic Haptoglobin PT INR Fibrinogen D-Dimer POC ABG pH POC ABG pCO2 POC ABG pO2 Sodium Potassium Chloride Carbon Dioxide BUN Creatinine Glucose POC Glucose 59 L 127 H > 500 H Lactic Acid Calcium Phosphorus Magnesium Iron TIBC Total Bilirubin Direct Bilirubin AST ALT Alkaline Phosphatase Lactate Dehydrogenase CK-MB (CK-2) Troponin T C-Reactive Protein Total Protein Albumin Triglycerides Cholesterol HDL Cholesterol Vitamin B12 Urine Creatinine Urine Total Protein Heparin-induced Plt Ab Hep Bs Antibody, Quant Crossmatch 12/16/16 12/16/16 12/16/16 22:59 Unknown Unknown WBC 17.2 H RBC 2.83 L Hgb 7.9 L Hct 24.4 L MCV MCHC RDW Plt Count Lymph % (Auto) 9.2 L Teller # 0.9 H Seg Neutrophils % 84.1 H Seg Neuts % (Manual) Lymphocytes % (Manual) Monocytes % (Manual) Nucleated RBC % Seg Neutrophils # 14.5 H Seg Neutrophils # Man Lymphocytes # (Manual) Monocytes # (Manual) Percent Retic Haptoglobin PT INR Fibrinogen D-Dimer POC ABG pH POC ABG pCO2 POC ABG pO2 Sodium Potassium Chloride Carbon Dioxide BUN 43 H Creatinine 5.4 H Glucose 131 H POC Glucose 320 H Lactic Acid Calcium 6.9 L Phosphorus Magnesium Iron TIBC Total Bilirubin Direct Bilirubin AST ALT Alkaline Phosphatase Lactate Dehydrogenase CK-MB (CK-2) Troponin T C-Reactive Protein Total Protein Albumin Triglycerides Cholesterol HDL Cholesterol Vitamin B12 Urine Creatinine Urine Total Protein Heparin-induced Plt Ab Hep Bs Antibody, Quant Crossmatch 12/17/16 12/17/16 12/17/16 08:26 08:56 09:52 WBC RBC Hgb Hct MCV MCHC RDW Plt Count Lymph % (Auto) Teller # Seg Neutrophils % Seg Neuts % (Manual) Lymphocytes % (Manual) Monocytes % (Manual) Nucleated RBC % Seg Neutrophils # Seg Neutrophils # Man Lymphocytes # (Manual) Monocytes # (Manual) Percent Retic Haptoglobin PT INR Fibrinogen D-Dimer POC ABG pH POC ABG pCO2 POC ABG pO2 Sodium Potassium Chloride Carbon Dioxide BUN Creatinine Glucose POC Glucose < 40 L 40 L 133 H Lactic Acid Calcium Phosphorus Magnesium Iron TIBC Total Bilirubin Direct Bilirubin AST ALT Alkaline Phosphatase Lactate Dehydrogenase CK-MB (CK-2) Troponin T C-Reactive Protein Total Protein Albumin Triglycerides Cholesterol HDL Cholesterol Vitamin B12 Urine Creatinine Urine Total Protein Heparin-induced Plt Ab Hep Bs Antibody, Quant Crossmatch 12/17/16 12/17/16 12/17/16 12:51 16:08 21:00 WBC RBC Hgb Hct MCV MCHC RDW Plt Count Lymph % (Auto) Teller # Seg Neutrophils % Seg Neuts % (Manual) Lymphocytes % (Manual) Monocytes % (Manual) Nucleated RBC % Seg Neutrophils # Seg Neutrophils # Man Lymphocytes # (Manual) Monocytes # (Manual) Percent Retic Haptoglobin PT INR Fibrinogen D-Dimer POC ABG pH POC ABG pCO2 POC ABG pO2 Sodium Potassium Chloride Carbon Dioxide BUN Creatinine Glucose POC Glucose 177 H 303 H 489 H Lactic Acid Calcium Phosphorus Magnesium Iron TIBC Total Bilirubin Direct Bilirubin AST ALT Alkaline Phosphatase Lactate Dehydrogenase CK-MB (CK-2) Troponin T C-Reactive Protein Total Protein Albumin Triglycerides Cholesterol HDL Cholesterol Vitamin B12 Urine Creatinine Urine Total Protein Heparin-induced Plt Ab Hep Bs Antibody, Quant Crossmatch 12/17/16 12/17/16 12/18/16 Unknown Unknown 05:50 WBC 16.6 H 15.6 H RBC 2.63 L 2.58 L Hgb 7.5 L 7.3 L Hct 23.3 L 23.0 L MCV MCHC RDW 15.3 H 15.9 H Plt Count Lymph % (Auto) 7.7 L 8.7 L Teller # 0.9 H Seg Neutrophils % 85.8 H 83.6 H Seg Neuts % (Manual) Lymphocytes % (Manual) Monocytes % (Manual) Nucleated RBC % Seg Neutrophils # 14.3 H 13.0 H Seg Neutrophils # Man Lymphocytes # (Manual) Monocytes # (Manual) Percent Retic Haptoglobin PT INR Fibrinogen D-Dimer POC ABG pH POC ABG pCO2 POC ABG pO2 Sodium Potassium 3.5 L Chloride Carbon Dioxide BUN 47 H Creatinine 5.2 H Glucose 173 H POC Glucose Lactic Acid Calcium 6.9 L Phosphorus Magnesium Iron TIBC Total Bilirubin Direct Bilirubin AST ALT Alkaline Phosphatase Lactate Dehydrogenase CK-MB (CK-2) Troponin T C-Reactive Protein Total Protein Albumin Triglycerides Cholesterol HDL Cholesterol Vitamin B12 Urine Creatinine Urine Total Protein Heparin-induced Plt Ab Hep Bs Antibody, Quant Crossmatch 12/18/16 12/18/16 12/18/16 05:50 09:09 16:46 WBC RBC Hgb Hct MCV MCHC RDW Plt Count Lymph % (Auto) Teller # Seg Neutrophils % Seg Neuts % (Manual) Lymphocytes % (Manual) Monocytes % (Manual) Nucleated RBC % Seg Neutrophils # Seg Neutrophils # Man Lymphocytes # (Manual) Monocytes # (Manual) Percent Retic Haptoglobin PT INR Fibrinogen D-Dimer POC ABG pH POC ABG pCO2 POC ABG pO2 Sodium Potassium Chloride Carbon Dioxide 17 L BUN 46 H Creatinine 5.0 H Glucose 252 H POC Glucose 349 H 324 H Lactic Acid Calcium 6.8 L Phosphorus Magnesium Iron TIBC Total Bilirubin Direct Bilirubin AST ALT Alkaline Phosphatase Lactate Dehydrogenase CK-MB (CK-2) Troponin T C-Reactive Protein Total Protein Albumin Triglycerides Cholesterol HDL Cholesterol Vitamin B12 Urine Creatinine Urine Total Protein Heparin-induced Plt Ab Hep Bs Antibody, Quant Crossmatch 12/18/16 12/19/16 12/19/16 21:14 08:12 10:23 WBC 13.7 H RBC 2.60 L Hgb 7.5 L Hct 23.1 L MCV MCHC RDW 15.7 H Plt Count Lymph % (Auto) 9.1 L Teller # 0.9 H Seg Neutrophils % 82.2 H Seg Neuts % (Manual) Lymphocytes % (Manual) Monocytes % (Manual) Nucleated RBC % Seg Neutrophils # 11.3 H Seg Neutrophils # Man Lymphocytes # (Manual) Monocytes # (Manual) Percent Retic Haptoglobin PT INR Fibrinogen D-Dimer POC ABG pH POC ABG pCO2 POC ABG pO2 Sodium Potassium Chloride Carbon Dioxide BUN Creatinine Glucose POC Glucose 316 H 464 H Lactic Acid Calcium Phosphorus Magnesium Iron TIBC Total Bilirubin Direct Bilirubin AST ALT Alkaline Phosphatase Lactate Dehydrogenase CK-MB (CK-2) Troponin T C-Reactive Protein Total Protein Albumin Triglycerides Cholesterol HDL Cholesterol Vitamin B12 Urine Creatinine Urine Total Protein Heparin-induced Plt Ab Hep Bs Antibody, Quant Crossmatch 12/19/16 12/19/16 12/19/16 10:23 11:39 16:00 WBC RBC Hgb Hct MCV MCHC RDW Plt Count Lymph % (Auto) Teller # Seg Neutrophils % Seg Neuts % (Manual) Lymphocytes % (Manual) Monocytes % (Manual) Nucleated RBC % Seg Neutrophils # Seg Neutrophils # Man Lymphocytes # (Manual) Monocytes # (Manual) Percent Retic Haptoglobin PT INR Fibrinogen D-Dimer POC ABG pH POC ABG pCO2 POC ABG pO2 Sodium Potassium 3.5 L Chloride Carbon Dioxide 14 L BUN 22 H Creatinine 3.2 H Glucose 446 H POC Glucose 344 H 467 H Lactic Acid Calcium 6.9 L Phosphorus 1.70 L D Magnesium Iron TIBC Total Bilirubin Direct Bilirubin AST ALT Alkaline Phosphatase Lactate Dehydrogenase CK-MB (CK-2) Troponin T C-Reactive Protein Total Protein Albumin Triglycerides Cholesterol HDL Cholesterol Vitamin B12 Urine Creatinine Urine Total Protein Heparin-induced Plt Ab Hep Bs Antibody, Quant Crossmatch 12/19/16 12/19/16 12/19/16 16:35 16:35 21:16 WBC 19.3 H RBC 2.37 L Hgb 6.9 L Hct 21.8 L MCV MCHC RDW 16.7 H Plt Count Lymph % (Auto) Teller # Seg Neutrophils % Seg Neuts % (Manual) Lymphocytes % (Manual) Monocytes % (Manual) Nucleated RBC % Seg Neutrophils # Seg Neutrophils # Man Lymphocytes # (Manual) Monocytes # (Manual) Percent Retic Haptoglobin PT INR Fibrinogen D-Dimer POC ABG pH POC ABG pCO2 POC ABG pO2 Sodium Potassium 3.4 L Chloride Carbon Dioxide 17 L BUN 23 H Creatinine 3.2 H Glucose 427 H POC Glucose 397 H Lactic Acid Calcium 6.9 L Phosphorus 2.40 L D Magnesium Iron TIBC Total Bilirubin Direct Bilirubin AST ALT Alkaline Phosphatase Lactate Dehydrogenase CK-MB (CK-2) Troponin T C-Reactive Protein Total Protein Albumin Triglycerides Cholesterol HDL Cholesterol Vitamin B12 Urine Creatinine Urine Total Protein Heparin-induced Plt Ab Hep Bs Antibody, Quant Crossmatch 12/20/16 12/20/16 06:00 06:00 WBC 17.5 H RBC 2.54 L Hgb 7.3 L Hct 23.5 L MCV MCHC RDW 16.4 H Plt Count Lymph % (Auto) 9.0 L Teller # 1.1 H Seg Neutrophils % 83.0 H Seg Neuts % (Manual) Lymphocytes % (Manual) Monocytes % (Manual) Nucleated RBC % Seg Neutrophils # 14.5 H Seg Neutrophils # Man Lymphocytes # (Manual) Monocytes # (Manual) Percent Retic Haptoglobin PT INR Fibrinogen D-Dimer POC ABG pH POC ABG pCO2 POC ABG pO2 Sodium 136 L Potassium Chloride 92.4 L Carbon Dioxide 15 L BUN Creatinine 2.6 H Glucose 475 H POC Glucose Lactic Acid Calcium Phosphorus Magnesium Iron TIBC Total Bilirubin Direct Bilirubin AST ALT Alkaline Phosphatase Lactate Dehydrogenase CK-MB (CK-2) Troponin T C-Reactive Protein Total Protein Albumin Triglycerides Cholesterol HDL Cholesterol Vitamin B12 Urine Creatinine Urine Total Protein Heparin-induced Plt Ab Hep Bs Antibody, Quant Crossmatch
[2016-12-21 00:22] LABS: BUN/Creatinine Ratio 9.14; Calcium 8.2 mg/dL (8.4-10.2); Chloride 83.2 mmol/L (98-107); Potassium 4.1 mmol/L (3.6-5.0)
[2016-12-21] MEDS ORDERED: NOVOLOG SUB-Q ONE (01:09)
[2016-12-21] MEDS ORDERED: LEVEMIR SUB-Q ONE (01:13)
[2016-12-21] MEDS: PERCOCET 5/325 PO PRN ×3 (01:18→20:22)
[2016-12-21 06:47] LABS: Eosinophils % (Auto) 1.4 % (0.0-4.3); Hematocrit 20.6 % (30.3-42.9); Hemoglobin 6.8 gm/dl (10.1-14.3); Mean Corpuscular HGB Conc 33 % (30-34); Mean Corpuscular Hemoglobin 29 pg (28-32); Mean Corpuscular Volume 89 fl (79-97); Platelet Count 258 K/mm3 (140-440); Red Blood Count 2.32 M/mm3 (3.65-5.03); Red Cell Distribution Width 16.3 % (13.2-15.2); White Blood Count 15.7 K/mm3 (4.5-11.0)
[2016-12-21 07:04] LABS: BUN/Creatinine Ratio 8.64; Calcium 8.1 mg/dL (8.4-10.2); Chloride 95.3 mmol/L (98-107); Phosphorous 3.7 mg/dL (2.5-4.5); Potassium 3.6 mmol/L (3.6-5.0); Total Iron Binding Capacity 193.2 mcg/dL (250-450)
[2016-12-21] MEDS: NOVOLOG SUB-Q SCH ×3 (08:38→17:30)
[2016-12-21] MEDS: PEPCID PO SCH (09:40)
[2016-12-21] MEDS: LOVENOX SUB-Q SCH (10:00)
[2016-12-21] MEDS ORDERED: LEVAQUIN PO SCH (10:00)
[2016-12-21] MEDS: LOPRESSOR PO SCH ×2 (10:38→21:25)
[2016-12-21] MEDS: BENADRYL PO PRN ×2 (11:10→23:59)
[2016-12-21] MEDS ORDERED: NACL 0.9 (PRIMING MACHINE ONLY DIALYSIS) MC ONE (11:44)
--- NOTE | 2016-12-21 12:05 | Progress Note ---
Assessment and Plan (1) DKA (diabetic ketoacidoses) Current Visit: Yes Status: Acute Qualifiers: Diabetes mellitus type: type 1 Diabetes mellitus complication detail: without coma Diabetes mellitus fdc insulin use: D Qualified Code(s): E10.10 - Type 1 diabetes mellitus with ketoacidosis without coma Plan to address problem: Status post insulin drip, on sliding scale insulin, as per primary team (2) ESRD (end stage renal disease) on dialysis Current Visit: Yes Status: Acute Plan to address problem: HD today for clearance and volume removal Assess need for HD on daily basis Epogen dosing during HD for anemia management Obtain occult stool, repeat iron studies in the morning Renally dose medications Case management consulted for outpatient dialysis placement [facility] in [place] Obtain daily weight Strict intake and output (3) Hypertensive nephrosclerosis, stage 5 chronic kidney disease or end stage renal disease Current Visit: Yes Status: Acute Plan to address problem: Continue on current anti-hypertensive regimen for now, blood pressure in the 90s systolic this morning, will monitor and adjust as needed (4) Anemia Current Visit: Yes Status: Acute Qualifiers: Anemia type: A Iron deficiency anemia type: I Vitamin B12 deficiency anemia type: V Folate deficiency anemia type: F Bone marrow failure anemia type: B Hemolytic anemia type: H Other causes of anemia: O Chronic kidney disease stage: C Plan to address problem: Epogen dosing during HD for anemia management Subjective Date of service: 12/21/16 Principal diagnosis: Sepsis; Pneumonia; ASHELY on dialysis; Diabetes Interval history: seen during HD, tolerating Objective - Vital Signs Vital signs: Vital Signs - 12hr 12/21/16 12/21/16 12/21/16 04:00 05:54 07:45 Temperature 98.3 F 98.2 F Pulse Rate 117 H Pulse Rate [ 114 H 103 H Right Radial] Respiratory 20 20 Rate Blood Pressure Blood Pressure 119/73 124/91 [Right Arm] O2 Sat by Pulse 110 H Oximetry 12/21/16 12/21/16 12/21/16 10:12 10:15 10:30 Temperature 98.3 F Pulse Rate 104 H 98 H 106 H Pulse Rate [ Right Radial] Respiratory 18 Rate Blood Pressure 123/80 147/85 166/92 Blood Pressure [Right Arm] O2 Sat by Pulse Oximetry 12/21/16 12/21/16 12/21/16 10:45 11:00 11:15 Temperature Pulse Rate 100 H 98 H 98 H Pulse Rate [ Right Radial] Respiratory Rate Blood Pressure 170/94 161/94 160/96 Blood Pressure [Right Arm] O2 Sat by Pulse Oximetry - General Appearance General appearance: well-developed, well-nourished EENT: ATNC, PERRL, mucous membranes moist Neck: no JVD, no carotid bruit Respiratory: Present: Clear to Ascultation Cardiology: regular, S1S2 Gastrointestinal: normoactive bowel sounds Integumentary: no rash, warm and dry Neurologic: no focal deficit, no asterixis, alert and oriented x3 Musculoskeletal: other (no edema in BLE) Psychiatric: mood/affect appropriate, cooperative - Lab 12/21/16 05:00 12/21/16 05:00 Most recent lab results Calcium 8.1 mg/dL (8.4-10.2) L 12/21/16 05:00 Phosphorus 3.70 mg/dL (2.5-4.5) 12/21/16 05:00 Magnesium 1.90 mg/dL (1.7-2.3) 12/11/16 04:30 Urine Creatinine 29.5 mg/dL (0.1-20.0) H 12/04/16 11:25 Urine Sodium 26 mEq/L 12/04/16 11:25 Urine Total Protein 33 mg/dL (5-11.8) H 12/04/16 11:25
--- NOTE | 2016-12-21 16:41 | Progress Note ---
Assessment and Plan Assessment and plan: Cardiac arrest with V. fib - Likely from hyperkalemia, currently patient is stable - Was treated with amiodarone - No recurrence ARF, ATN - Nephrology is following, she is going to continue hemodialysis Metabolic Acidosis - On bicarbonate - resolved Acute hypoxic respiratory failure extubated - Resolved DKA: - resolved - On sliding insulin - Hyperglycemia; patient has candy and chocolate in her room even though she claimed she didn't ate. Didn't increase her insulin because of episodes of hypoglycemia. Acute metabolic encephalopathy - resolved Leukocytosis +GNR in trach aspirate, pseudomonas aeruginosa - On PO levaquin - ID is following -DVT prophylaxis: SCDs only due to recent SAH Thrombocytopenia - Resolved Acute on chronic anemia of chronic disease s/p 2 unit of prbc, monitoring closely - Hemoglobin is 7.3 - Will follow and will dialyze if it is <7 Depression - Psych consulted and recommend O/P mental health follow up. Disposition - Patient needs O/P dialysis set up. History Interval history: Patient was seen and evaluated this morning, patient is not in pain or in distress. Hospitalist Physical - Physical exam Narrative exam: Not in cardiopulmonary distress. The patient appeared well nourished and normally developed. Vital signs as documented. Head exam is unremarkable. No scleral icterus . Neck is without jugular venous distension, thyromegaly, or carotid bruits. Lungs significant for wheezing. Cardiac exam reveals regular rate and Rhythm. First and second heart sounds normal. No murmurs, rubs or gallops. Abdominal exam reveals normal bowel sounds, no masses, no organomegaly and no aortic enlargement. Extremities are nonedematous and both femoral and pedal pulses are normal. 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 No focal weakness. - Constitutional Vitals: Temp Pulse Resp BP Pulse Ox 97.8 F 100 H 18 134/86 110 H 12/21/16 13:15 12/21/16 13:15 12/21/16 13:15 12/21/16 13:15 12/21/16 04:00 General appearance: Present: no acute distress (resting comfortably) Results - Labs CBC & Chem 7: 12/21/16 05:00 12/21/16 05:00 Labs: Laboratory Last Values WBC 15.7 K/mm3 (4.5-11.0) H 12/21/16 05:00 RBC 2.32 M/mm3 (3.65-5.03) L 12/21/16 05:00 Hgb 6.8 gm/dl (10.1-14.3) L 12/21/16 05:00 Hct 20.6 % (30.3-42.9) L 12/21/16 05:00 MCV 89 fl (79-97) D 12/21/16 05:00 MCH 29 pg (28-32) 12/21/16 05:00 MCHC 33 % (30-34) 12/21/16 05:00 RDW 16.3 % (13.2-15.2) H 12/21/16 05:00 Plt Count 258 K/mm3 (140-440) 12/21/16 05:00 Lymph % (Auto) 11.5 % (13.4-35.0) L 12/21/16 05:00 [place] % (Auto) 7.4 % (0.0-7.3) H 12/21/16 05:00 Eos % (Auto) 1.4 % (0.0-4.3) 12/21/16 05:00 Baso % (Auto) 1.0 % (0.0-1.8) 12/21/16 05:00 Lymph # 1.8 K/mm3 (1.2-5.4) 12/21/16 05:00 [place] # 1.2 K/mm3 (0.0-0.8) H 12/21/16 05:00 Eos # 0.2 K/mm3 (0.0-0.4) 12/21/16 05:00 Baso # 0.1 K/mm3 (0.0-0.1) 12/21/16 05:00 Add Manual Diff Complete 12/13/16 07:49 Total Counted 100 12/13/16 07:49 Seg Neutrophils % 78.7 % (40.0-70.0) H 12/21/16 05:00 Seg Neuts % (Manual) 89.0 % (40.0-70.0) H 12/13/16 07:49 Band Neutrophils % 1.0 % 12/13/16 07:49 Lymphocytes % (Manual) 7.0 % (13.4-35.0) L 12/13/16 07:49 Reactive Lymphs % (Man) 0 % 12/13/16 07:49 Monocytes % (Manual) 3.0 % (0.0-7.3) 12/13/16 07:49 Eosinophils % (Manual) 0 % (0.0-4.3) 12/13/16 07:49 Basophils % (Manual) 0 % (0.0-1.8) 12/13/16 07:49 Metamyelocytes % 0 % 12/13/16 07:49 Myelocytes % 0 % 12/13/16 07:49 Promyelocytes % 0 % 12/13/16 07:49 Blast Cells % 0 % 12/13/16 07:49 Nucleated RBC % Not Reportable 12/13/16 07:49 Seg Neutrophils # 12.4 K/mm3 (1.8-7.7) H 12/21/16 05:00 Seg Neutrophils # Man 21.4 K/mm3 (1.8-7.7) H 12/13/16 07:49 Band Neutrophils # 0.2 K/mm3 12/13/16 07:49 Lymphocytes # (Manual) 1.7 K/mm3 (1.2-5.4) 12/13/16 07:49 Abs React Lymphs (Man) 0.0 K/mm3 12/13/16 07:49 Monocytes # (Manual) 0.7 K/mm3 (0.0-0.8) 12/13/16 07:49 Eosinophils # (Manual) 0.0 K/mm3 (0.0-0.4) 12/13/16 07:49 Basophils # (Manual) 0.0 K/mm3 (0.0-0.1) 12/13/16 07:49 Metamyelocytes # 0.0 K/mm3 12/13/16 07:49 Myelocytes # 0.0 K/mm3 12/13/16 07:49 Promyelocytes # 0.0 K/mm3 12/13/16 07:49 Blast Cells # 0.0 K/mm3 12/13/16 07:49 WBC Morphology Not Reportable 12/13/16 07:49 Hypersegmented Neuts Not Reportable 12/13/16 07:49 Hyposegmented Neuts Not Reportable 12/13/16 07:49 Hypogranular Neuts Not Reportable 12/13/16 07:49 Smudge Cells Not Reportable 12/13/16 07:49 Toxic Granulation Not Reportable 12/13/16 07:49 Toxic Vacuolation Not Reportable 12/13/16 07:49 Dohle Bodies Not Reportable 12/13/16 07:49 Pelger-Huet Anomaly Not Reportable 12/13/16 07:49 Mary Rods Not Reportable 12/13/16 07:49 Platelet Estimate Cons 12/13/16 07:49 Clumped Platelets Not Reportable 12/13/16 07:49 Plt Clumps, EDTA Not Reportable 12/13/16 07:49 Large Platelets Rare 12/13/16 07:49 Giant Platelets Not Reportable 12/13/16 07:49 Platelet Satelliting Not Reportable 12/13/16 07:49 Plt Morphology Comment Not Reportable 12/13/16 07:49 RBC Morphology Not Reportable 12/13/16 07:49 Dimorphic RBCs Not Reportable 12/13/16 07:49 Polychromasia Not Reportable 12/13/16 07:49 Hypochromasia 1+ 12/13/16 07:49 Poikilocytosis Not Reportable 12/13/16 07:49 Anisocytosis 1+ 12/13/16 07:49 Microcytosis Not Reportable 12/13/16 07:49 Macrocytosis Not Reportable 12/13/16 07:49 Spherocytes Not Reportable 12/13/16 07:49 Pappenheimer Bodies Not Reportable 12/13/16 07:49 Sickle Cells Not Reportable 12/13/16 07:49 Target Cells Few 12/13/16 07:49 Tear Drop Cells Not Reportable 12/13/16 07:49 Ovalocytes Not Reportable 12/13/16 07:49 Helmet Cells Not Reportable 12/13/16 07:49 Landers-Nicholls Bodies Not Reportable 12/13/16 07:49 Eads Rings Not Reportable 12/13/16 07:49 Jerri Cells Not Reportable 12/13/16 07:49 Bite Cells Not Reportable 12/13/16 07:49 Crenated Cell Not Reportable 12/13/16 07:49 Elliptocytes Not Reportable 12/13/16 07:49 Acanthocytes (Spur) Not Reportable 12/13/16 07:49 Rouleaux Not Reportable 12/13/16 07:49 Hemoglobin C Crystals Not Reportable 12/13/16 07:49 Schistocytes Not Reportable 12/13/16 07:49 Malaria parasites Not Reportable 12/13/16 07:49 Percent Retic 0.23 % (0.78-2.58) L 12/09/16 11:29 Michael Bodies Not Reportable 12/13/16 07:49 Haptoglobin 271 mg/dL (43-212) H 12/08/16 21:30 Hem Pathologist Commnt No 12/13/16 07:49 PT 15.3 Sec. (12.2-14.9) H 12/08/16 19:00 INR 1.22 (0.87-1.13) H 12/08/16 19:00 APTT 36.2 Sec. (24.2-36.6) 12/08/16 19:00 Fibrinogen 563 mg/dl (211-480) H 12/08/16 19:00 D-Dimer 5507.36 ng/mlDDU (0-234) H 12/08/16 19:00 Heparin Anti-Xa, Unfract Negative (Negative) 12/09/16 13:27 POC ABG pH 7.326 (7.35-7.45) L 12/09/16 12:02 POC ABG pCO2 37.7 (35-45) 12/09/16 12:02 POC ABG pO2 115 (80-105) H 12/09/16 12:02 POC ABG HCO3 19.7 12/09/16 12:02 POC ABG Total CO2 21 12/09/16 12:02 POC ABG O2 Sat 98 12/09/16 12:02 POC ABG Base Excess -6 12/09/16 12:02 FiO2 30 % 12/09/16 12:02 Sodium 138 mmol/L (137-145) D 12/21/16 05:00 Potassium 3.6 mmol/L (3.6-5.0) 12/21/16 05:00 Chloride 95.3 mmol/L (98-107) L 12/21/16 05:00 Carbon Dioxide 20 mmol/L (22-30) L D 12/21/16 05:00 Anion Gap 26 mmol/L 12/21/16 05:00 BUN 32 mg/dL (7-17) H 12/21/16 05:00 Creatinine 3.7 mg/dL (0.7-1.2) H 12/21/16 05:00 Estimated GFR 16 ml/min 12/21/16 05:00 BUN/Creatinine Ratio 8.64 % 12/21/16 05:00 Glucose 243 mg/dL (65-100) H 12/21/16 05:00 POC Glucose 222 (70-105) H 12/21/16 08:20 Lactic Acid 6.90 mmol/L (0.7-2.0) H* 12/07/16 07:30 Calcium 8.1 mg/dL (8.4-10.2) L 12/21/16 05:00 Phosphorus 3.70 mg/dL (2.5-4.5) 12/21/16 05:00 Magnesium 1.90 mg/dL (1.7-2.3) 12/11/16 04:30 Iron 66 ug/dL (37-170) 12/21/16 05:00 TIBC 193.20 mcg/dL (250-450) L 12/21/16 05:00 Transferrin 138 mg/dl (192-382) L 12/21/16 05:00 Ferritin 321.4 ng/mL (13.0-400.0) 12/21/16 05:00 Total Bilirubin 1.40 mg/dL (0.1-1.2) H 12/07/16 21:35 Direct Bilirubin 0.9 mg/dL (0-0.2) H 12/07/16 21:35 Indirect Bilirubin 0.5 mg/dL 12/07/16 21:35 AST 94 units/L (5-40) H 12/07/16 21:35 ALT 142 units/L (7-56) H 12/07/16 21:35 Alkaline Phosphatase 249 units/L (35-129) H 12/07/16 21:35 Lactate Dehydrogenase 382 units/L (91-180) H 12/08/16 19:00 Total Creatine Kinase 123 units/L (30-135) 12/04/16 09:55 CK-MB (CK-2) 4.6 ng/mL (0.0-4.0) H 12/04/16 09:55 CK-MB (CK-2) Rel Index 3.7 (0-4) 12/04/16 09:55 Troponin T 0.140 ng/mL (0.00-0.029) H* D 12/04/16 09:55 C-Reactive Protein 39.40 mg/dL (0.00-1.30) H 12/07/16 06:00 Total Protein 4.6 g/dL (6.3-8.2) L D 12/07/16 21:35 Albumin 2.1 g/dL (3.9-5) L 12/07/16 21:35 Albumin/Globulin Ratio 0.8 % 12/07/16 21:35 Triglycerides 570 mg/dL (2-149) H 12/04/16 07:55 Cholesterol 221 mg/dL (50-199) H 12/04/16 07:55 LDL Cholesterol Direct TNR 12/04/16 07:55 HDL Cholesterol 37 mg/dL (40-59) L 12/04/16 07:55 Cholesterol/HDL Ratio 5.97 % 12/04/16 07:55 Vitamin B12 > 2000 pg/mL (211-911) H 12/09/16 13:27 Folate 8.10 ng/mL (7.3-26.0) 12/09/16 13:27 TSH 1.600 mlU/mL (0.270-4.200) 12/03/16 23:20 Urine Color Yellow (Yellow) 12/04/16 11:25 Urine Turbidity Slightly-cloudy (Clear) 12/04/16 11:25 Urine pH 5.0 (5.0-7.0) 12/04/16 11:25 Ur Specific [place] 1.018 (1.003-1.030) 12/04/16 11:25 Urine Protein 30 mg/dl mg/dL (Negative) 12/04/16 11:25 Urine Glucose (UA) >=500 mg/dL (Negative) 12/04/16 11:25 Urine Ketones Tr mg/dL (Negative) 12/04/16 11:25 Urine Blood Sm (Negative) 12/04/16 11:25 Urine Nitrite Neg (Negative) 12/04/16 11:25 Urine Bilirubin Neg (Negative) 12/04/16 11:25 Urine Urobilinogen < 2.0 mg/dL (<2.0) 12/04/16 11:25 Ur Leukocyte Esterase Neg (Negative) 12/04/16 11:25 Urine WBC (Auto) 4.0 /HPF (0.0-6.0) 12/04/16 11:25 Urine RBC (Auto) 2.0 /HPF (0.0-6.0) 12/04/16 11:25 U Epithel Cells (Auto) < 1.0 /HPF (0-13.0) 12/04/16 11:25 Urine Mucus Few /HPF 12/04/16 11:25 Urine Osmolality 419 Mosm/kg 12/04/16 11:25 Urine Creatinine 29.5 mg/dL (0.1-20.0) H 12/04/16 11:25 Protein/Creatinin Ratio 1.12 12/04/16 11:25 Urine Sodium 26 mEq/L 12/04/16 11:25 Urine Total Protein 33 mg/dL (5-11.8) H 12/04/16 11:25 Urine Opiates Screen Presumptive negative 12/04/16 11:25 Urine Methadone Screen Presumptive negative 12/04/16 11:25 Ur Barbiturates Screen Presumptive negative 12/04/16 11:25 Ur Phencyclidine Scrn Presumptive negative 12/04/16 11:25 Ur Amphetamines Screen Presumptive negative 12/04/16 11:25 U Benzodiazepines Scrn Presumptive negative 12/04/16 11:25 Urine Cocaine Screen Presumptive negative 12/04/16 11:25 U Marijuana (THC) Screen Presumptive positive 12/04/16 11:25 Drugs of Abuse Note Disclamer 12/04/16 11:25 Heparin-induced Plt Ab Weak positive (Negative) H 12/09/16 13:27 UF Heparin High Dose 0 % Release 12/09/16 13:27 ADRIENNE UFH Low Dose 0.1 0 % Release 12/09/16 13:27 ADRIENNE UFH Low Dose 0.5 0 % Release 12/09/16 13:27 Hep Bs Antigen Non-reactive (Negative) 12/09/16 13:27 Hep Bs Antibody, Quant <5 mIU/mL (>=10) L 12/09/16 13:27 Hep B Core Total Ab Nonreactive (Nonreactive) 12/09/16 13:27 Hepatitis C Antibody Non-reactive (NonReactive) 12/09/16 13:27 HIV 1&2 Antibody Rapid Non react (Non React) 12/09/16 13:27 HIV P24 Antigen Non react (Non React) 12/09/16 13:27 Schistocytes Smear None seen 12/09/16 11:29 Blood Type O POSITIVE 12/08/16 08:46 Antibody Screen TNR 12/08/16 08:46 ISAIAH Antibody Screen Negative 12/08/16 08:46 Crossmatch See Detail 12/08/16 08:46
--- NOTE | 2016-12-21 20:57 | Progress Note ---
Assessment and Plan Patient alert, awake, weak. No acute respiratory distress. No complaint of chest pain or shortness of breath. O2 saturation 98% on 21/2 litres O2..Ventilation perfusion scan reported low probability for pulmonary emboli.Patients chest xray reported improving right upper lobe infiltrate. 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 Patient alert, awake. Clinicaly appears improving. Management as per primary care. (2) Metabolic encephalopathy Current Visit: Yes Status: Acute Plan to address problem: Patient alert, awake, following commands. Appears encephalopathy improving. Management as per primary care. (3) Pulmonary infiltrate in right lung on chest x-ray Current Visit: Yes Status: Acute Plan to address problem: Starting on I/V Levaquine. Patient afebrile. Still has leukocytosis. last chest xray reported improving right upper lobe infiltrate. Subjective Date of service: 12/21/16 Principal diagnosis: Sepsis; Pneumonia; ASHELY on dialysis; Diabetes Interval history: Patient alert, awake, weak. No acute respiratory distress. No complaint of chest pain or shortness of breath. O2 saturation 98% on 21/2 litres O2..Ventilation perfusion scan reported low probability for pulmonary emboli.Patients chest xray reported improving right upper lobe infiltrate. Objective Vital Signs - 12hr 12/21/16 12/21/16 12/21/16 10:12 10:15 10:30 Temperature 98.3 F Pulse Rate 104 H 98 H 106 H Pulse Rate [ Right Radial] Respiratory 18 Rate Blood Pressure 123/80 147/85 166/92 Blood Pressure [Right Arm] O2 Sat by Pulse Oximetry 12/21/16 12/21/16 12/21/16 10:45 11:00 11:15 Temperature Pulse Rate 100 H 98 H 98 H Pulse Rate [ Right Radial] Respiratory Rate Blood Pressure 170/94 161/94 160/96 Blood Pressure [Right Arm] O2 Sat by Pulse Oximetry 12/21/16 12/21/16 12/21/16 11:30 11:45 12:00 Temperature Pulse Rate 96 H 96 H 95 H Pulse Rate [ Right Radial] Respiratory Rate Blood Pressure 148/91 143/91 134/89 Blood Pressure [Right Arm] O2 Sat by Pulse Oximetry 12/21/16 12/21/16 12/21/16 12:15 12:30 12:45 Temperature Pulse Rate 95 H 96 H 96 H Pulse Rate [ Right Radial] Respiratory Rate Blood Pressure 125/88 113/56 120/78 Blood Pressure [Right Arm] O2 Sat by Pulse Oximetry 12/21/16 12/21/16 12/21/16 13:00 13:15 16:20 Temperature 97.8 F 98.4 F Pulse Rate 98 H 100 H Pulse Rate [ 96 H Right Radial] Respiratory 18 18 Rate Blood Pressure 114/78 134/86 Blood Pressure 142/85 [Right Arm] O2 Sat by Pulse 97 Oximetry 12/21/16 12/21/16 18:00 20:41 Temperature 98.3 F Pulse Rate 107 H Pulse Rate [ 116 H Right Radial] Respiratory 20 Rate Blood Pressure Blood Pressure 123/67 [Right Arm] O2 Sat by Pulse 98 Oximetry Constitutional: no acute distress, alert Eyes: non-icteric ENT: oropharynx moist Neck: supple, no lymphadenopathy Effort: normal Ascultation: Right: rhonchi, Bilateral: diminished breath sounds, rales (R>L lungs) Cardiovascular: regular rate and rhythm Gastrointestinal: normoactive bowel sounds, soft, non-tender, non-distended Integumentary: normal Extremities: no cyanosis, no edema, pulses normal, no ischemia or petechiae Neurologic: normal mental status, non-focal exam, pupils equal and round, motor strength normal and Psychiatric: mood appropriate, affect normal CBC and BMP: 12/21/16 05:00 12/21/16 05:00 ABG, PT/INR, D-dimer: ABG POC ABG pH 7.326 (7.35-7.45) L 12/09/16 12:02 POC ABG pCO2 37.7 (35-45) 12/09/16 12:02 POC ABG pO2 115 (80-105) H 12/09/16 12:02 POC ABG HCO3 19.7 12/09/16 12:02 POC ABG Total CO2 21 12/09/16 12:02 POC ABG O2 Sat 98 12/09/16 12:02 PT/INR, D-dimer PT 15.3 Sec. (12.2-14.9) H 12/08/16 19:00 INR 1.22 (0.87-1.13) H 12/08/16 19:00 D-Dimer 5507.36 ng/mlDDU (0-234) H 12/08/16 19:00 Abnormal lab findings: Abnormal Labs 12/04/16 12/04/16 12/04/16 01:19 01:36 02:21 WBC RBC Hgb Hct MCV MCHC RDW Plt Count Lymph % (Auto) [place] % (Auto) [place] # Seg Neutrophils % Seg Neuts % (Manual) Lymphocytes % (Manual) Monocytes % (Manual) Nucleated RBC % Seg Neutrophils # Seg Neutrophils # Man Lymphocytes # (Manual) Monocytes # (Manual) Percent Retic Haptoglobin PT INR Fibrinogen D-Dimer POC ABG pH 6.759 L POC ABG pCO2 POC ABG pO2 437 H Sodium Potassium Chloride Carbon Dioxide BUN Creatinine Glucose POC Glucose > 500 H Lactic Acid Calcium Phosphorus 15.70 H Magnesium 4.30 H Iron TIBC Transferrin Total Bilirubin Direct Bilirubin AST ALT Alkaline Phosphatase Lactate Dehydrogenase CK-MB (CK-2) Troponin T C-Reactive Protein Total Protein Albumin Triglycerides Cholesterol HDL Cholesterol Vitamin B12 Urine Creatinine Urine Total Protein Heparin-induced Plt Ab Hep Bs Antibody, Quant Crossmatch 12/04/16 12/04/16 12/04/16 03:55 04:00 05:11 WBC RBC Hgb Hct MCV MCHC RDW Plt Count Lymph % (Auto) [place] % (Auto) [place] # Seg Neutrophils % Seg Neuts % (Manual) Lymphocytes % (Manual) Monocytes % (Manual) Nucleated RBC % Seg Neutrophils # Seg Neutrophils # Man Lymphocytes # (Manual) Monocytes # (Manual) Percent Retic Haptoglobin PT INR Fibrinogen D-Dimer POC ABG pH POC ABG pCO2 POC ABG pO2 Sodium Potassium Chloride 91.4 L Carbon Dioxide 8 L* BUN 55 H Creatinine 2.8 H Glucose 1610 H* POC Glucose > 500 H > 500 H Lactic Acid Calcium Phosphorus Magnesium Iron TIBC Transferrin Total Bilirubin Direct Bilirubin AST ALT Alkaline Phosphatase Lactate Dehydrogenase CK-MB (CK-2) Troponin T C-Reactive Protein Total Protein Albumin Triglycerides Cholesterol HDL Cholesterol Vitamin B12 Urine Creatinine Urine Total Protein Heparin-induced Plt Ab Hep Bs Antibody, Quant Crossmatch 12/04/16 12/04/16 12/04/16 05:40 05:54 06:58 WBC RBC Hgb Hct MCV MCHC RDW Plt Count Lymph % (Auto) [place] % (Auto) [place] # Seg Neutrophils % Seg Neuts % (Manual) Lymphocytes % (Manual) Monocytes % (Manual) Nucleated RBC % Seg Neutrophils # Seg Neutrophils # Man Lymphocytes # (Manual) Monocytes # (Manual) Percent Retic Haptoglobin PT INR Fibrinogen D-Dimer POC ABG pH 7.154 L POC ABG pCO2 27.5 L POC ABG pO2 111 H Sodium Potassium Chloride Carbon Dioxide BUN Creatinine Glucose POC Glucose > 500 H > 500 H Lactic Acid Calcium Phosphorus Magnesium Iron TIBC Transferrin Total Bilirubin Direct Bilirubin AST ALT Alkaline Phosphatase Lactate Dehydrogenase CK-MB (CK-2) Troponin T C-Reactive Protein Total Protein Albumin Triglycerides Cholesterol HDL Cholesterol Vitamin B12 Urine Creatinine Urine Total Protein Heparin-induced Plt Ab Hep Bs Antibody, Quant Crossmatch 12/04/16 12/04/16 12/04/16 07:49 07:55 07:55 WBC RBC Hgb Hct MCV MCHC RDW Plt Count Lymph % (Auto) [place] % (Auto) [place] # Seg Neutrophils % Seg Neuts % (Manual) Lymphocytes % (Manual) Monocytes % (Manual) Nucleated RBC % Seg Neutrophils # Seg Neutrophils # Man Lymphocytes # (Manual) Monocytes # (Manual) Percent Retic Haptoglobin PT INR Fibrinogen D-Dimer POC ABG pH POC ABG pCO2 POC ABG pO2 Sodium Potassium 3.3 L Chloride Carbon Dioxide 9 L* BUN 53 H Creatinine 2.9 H Glucose 1229 H* POC Glucose > 500 H Lactic Acid Calcium Phosphorus Magnesium Iron TIBC Transferrin Total Bilirubin Direct Bilirubin AST ALT Alkaline Phosphatase Lactate Dehydrogenase CK-MB (CK-2) Troponin T 0.111 H* D C-Reactive Protein Total Protein Albumin Triglycerides 570 H Cholesterol 221 H HDL Cholesterol 37 L Vitamin B12 Urine Creatinine Urine Total Protein Heparin-induced Plt Ab Hep Bs Antibody, Quant Crossmatch 12/04/16 12/04/16 12/04/16 07:55 09:55 09:55 WBC RBC 2.90 L Hgb 8.5 L Hct 30.2 L D MCV 105 H D MCHC 28 L RDW 19.2 H Plt Count Lymph % (Auto) [place] % (Auto) [place] # Seg Neutrophils % Seg Neuts % (Manual) Lymphocytes % (Manual) 11.0 L Monocytes % (Manual) Nucleated RBC % Seg Neutrophils # Seg Neutrophils # Man Lymphocytes # (Manual) 0.6 L Monocytes # (Manual) Percent Retic Haptoglobin PT INR Fibrinogen D-Dimer POC ABG pH POC ABG pCO2 POC ABG pO2 Sodium Potassium 3.1 L Chloride Carbon Dioxide 7 L* BUN 51 H Creatinine 3.2 H Glucose 969 H* POC Glucose Lactic Acid Calcium 10.4 H D Phosphorus Magnesium Iron TIBC Transferrin Total Bilirubin Direct Bilirubin AST ALT Alkaline Phosphatase Lactate Dehydrogenase CK-MB (CK-2) 4.6 H Troponin T 0.140 H* D C-Reactive Protein Total Protein Albumin Triglycerides Cholesterol HDL Cholesterol Vitamin B12 Urine Creatinine Urine Total Protein Heparin-induced Plt Ab Hep Bs Antibody, Quant Crossmatch 12/04/16 12/04/16 12/04/16 09:55 10:37 11:25 WBC RBC Hgb Hct MCV MCHC RDW Plt Count Lymph % (Auto) [place] % (Auto) [place] # Seg Neutrophils % Seg Neuts % (Manual) Lymphocytes % (Manual) Monocytes % (Manual) Nucleated RBC % Seg Neutrophils # Seg Neutrophils # Man Lymphocytes # (Manual) Monocytes # (Manual) Percent Retic Haptoglobin PT INR Fibrinogen D-Dimer POC ABG pH 7.215 L POC ABG pCO2 18.8 L POC ABG pO2 193 H Sodium Potassium Chloride Carbon Dioxide BUN Creatinine Glucose POC Glucose Lactic Acid Calcium Phosphorus Magnesium 3.70 H Iron TIBC Transferrin Total Bilirubin Direct Bilirubin AST ALT Alkaline Phosphatase Lactate Dehydrogenase CK-MB (CK-2) Troponin T C-Reactive Protein Total Protein Albumin Triglycerides Cholesterol HDL Cholesterol Vitamin B12 Urine Creatinine 29.5 H Urine Total Protein 33 H Heparin-induced Plt Ab Hep Bs Antibody, Quant Crossmatch 12/04/16 12/04/16 12/04/16 12:00 12:48 13:00 WBC RBC Hgb Hct MCV MCHC RDW Plt Count Lymph % (Auto) [place] % (Auto) [place] # Seg Neutrophils % Seg Neuts % (Manual) Lymphocytes % (Manual) Monocytes % (Manual) Nucleated RBC % Seg Neutrophils # Seg Neutrophils # Man Lymphocytes # (Manual) Monocytes # (Manual) Percent Retic Haptoglobin PT INR Fibrinogen D-Dimer POC ABG pH POC ABG pCO2 POC ABG pO2 Sodium 149 H 150 H Potassium 3.2 L 3.2 L Chloride 109.1 H Carbon Dioxide 8 L* 8 L* BUN 52 H 49 H Creatinine 3.4 H 3.1 H Glucose 723 H* 574 H* POC Glucose Lactic Acid 18.80 H* Calcium Phosphorus Magnesium Iron TIBC Transferrin Total Bilirubin Direct Bilirubin AST ALT Alkaline Phosphatase Lactate Dehydrogenase CK-MB (CK-2) Troponin T C-Reactive Protein Total Protein Albumin Triglycerides Cholesterol HDL Cholesterol Vitamin B12 Urine Creatinine Urine Total Protein Heparin-induced Plt Ab Hep Bs Antibody, Quant Crossmatch 12/04/16 12/04/16 12/04/16 13:01 14:41 16:06 WBC RBC Hgb Hct MCV MCHC RDW Plt Count Lymph % (Auto) [place] % (Auto) [place] # Seg Neutrophils % Seg Neuts % (Manual) Lymphocytes % (Manual) Monocytes % (Manual) Nucleated RBC % Seg Neutrophils # Seg Neutrophils # Man Lymphocytes # (Manual) Monocytes # (Manual) Percent Retic Haptoglobin PT INR Fibrinogen D-Dimer POC ABG pH POC ABG pCO2 POC ABG pO2 Sodium 151 H Potassium 3.2 L Chloride 108.1 H Carbon Dioxide 10 L BUN 49 H Creatinine 3.0 H Glucose 383 H POC Glucose 292 H Lactic Acid Calcium Phosphorus Magnesium Iron TIBC Transferrin Total Bilirubin Direct Bilirubin AST ALT Alkaline Phosphatase Lactate Dehydrogenase CK-MB (CK-2) Troponin T C-Reactive Protein 3.50 H Total Protein Albumin Triglycerides Cholesterol HDL Cholesterol Vitamin B12 Urine Creatinine Urine Total Protein Heparin-induced Plt Ab Hep Bs Antibody, Quant Crossmatch 12/04/16 12/04/16 12/04/16 17:15 17:25 18:07 WBC RBC Hgb Hct MCV MCHC RDW Plt Count Lymph % (Auto) [place] % (Auto) [place] # Seg Neutrophils % Seg Neuts % (Manual) Lymphocytes % (Manual) Monocytes % (Manual) Nucleated RBC % Seg Neutrophils # Seg Neutrophils # Man Lymphocytes # (Manual) Monocytes # (Manual) Percent Retic Haptoglobin PT INR Fibrinogen D-Dimer POC ABG pH 7.255 L POC ABG pCO2 16.9 L POC ABG pO2 169 H Sodium Potassium Chloride Carbon Dioxide BUN Creatinine Glucose POC Glucose 246 H Lactic Acid 18.50 H* Calcium Phosphorus Magnesium Iron TIBC Transferrin Total Bilirubin Direct Bilirubin AST ALT Alkaline Phosphatase Lactate Dehydrogenase CK-MB (CK-2) Troponin T C-Reactive Protein Total Protein Albumin Triglycerides Cholesterol HDL Cholesterol Vitamin B12 Urine Creatinine Urine Total Protein Heparin-induced Plt Ab Hep Bs Antibody, Quant Crossmatch 12/04/16 12/04/16 12/04/16 19:34 20:31 21:15 WBC RBC Hgb Hct MCV MCHC RDW Plt Count Lymph % (Auto) [place] % (Auto) [place] # Seg Neutrophils % Seg Neuts % (Manual) Lymphocytes % (Manual) Monocytes % (Manual) Nucleated RBC % Seg Neutrophils # Seg Neutrophils # Man Lymphocytes # (Manual) Monocytes # (Manual) Percent Retic Haptoglobin PT INR Fibrinogen D-Dimer POC ABG pH POC ABG pCO2 POC ABG pO2 Sodium Potassium Chloride Carbon Dioxide BUN Creatinine Glucose POC Glucose 189 H 126 H 139 H Lactic Acid Calcium Phosphorus Magnesium Iron TIBC Transferrin Total Bilirubin Direct Bilirubin AST ALT Alkaline Phosphatase Lactate Dehydrogenase CK-MB (CK-2) Troponin T C-Reactive Protein Total Protein Albumin Triglycerides Cholesterol HDL Cholesterol Vitamin B12 Urine Creatinine Urine Total Protein Heparin-induced Plt Ab Hep Bs Antibody, Quant Crossmatch 12/04/16 12/04/16 12/04/16 21:25 22:37 23:35 WBC RBC Hgb Hct MCV MCHC RDW Plt Count Lymph % (Auto) [place] % (Auto) [place] # Seg Neutrophils % Seg Neuts % (Manual) Lymphocytes % (Manual) Monocytes % (Manual) Nucleated RBC % Seg Neutrophils # Seg Neutrophils # Man Lymphocytes # (Manual) Monocytes # (Manual) Percent Retic Haptoglobin PT INR Fibrinogen D-Dimer POC ABG pH 7.294 L POC ABG pCO2 16.7 L POC ABG pO2 169 H Sodium Potassium Chloride Carbon Dioxide BUN Creatinine Glucose POC Glucose 131 H 106 H Lactic Acid Calcium Phosphorus Magnesium Iron TIBC Transferrin Total Bilirubin Direct Bilirubin AST ALT Alkaline Phosphatase Lactate Dehydrogenase CK-MB (CK-2) Troponin T C-Reactive Protein Total Protein Albumin Triglycerides Cholesterol HDL Cholesterol Vitamin B12 Urine Creatinine Urine Total Protein Heparin-induced Plt Ab Hep Bs Antibody, Quant Crossmatch 12/05/16 12/05/16 12/05/16 02:40 02:50 02:50 WBC RBC Hgb Hct MCV MCHC RDW Plt Count Lymph % (Auto) [place] % (Auto) [place] # Seg Neutrophils % Seg Neuts % (Manual) Lymphocytes % (Manual) Monocytes % (Manual) Nucleated RBC % Seg Neutrophils # Seg Neutrophils # Man Lymphocytes # (Manual) Monocytes # (Manual) Percent Retic Haptoglobin PT INR Fibrinogen D-Dimer POC ABG pH POC ABG pCO2 POC ABG pO2 Sodium 151 H Potassium Chloride 113.8 H Carbon Dioxide 12 L BUN 46 H Creatinine 3.2 H Glucose 165 H POC Glucose 109 H Lactic Acid 9.80 H* Calcium 8.3 L Phosphorus Magnesium Iron TIBC Transferrin Total Bilirubin Direct Bilirubin AST ALT Alkaline Phosphatase Lactate Dehydrogenase CK-MB (CK-2) Troponin T C-Reactive Protein Total Protein Albumin Triglycerides Cholesterol HDL Cholesterol Vitamin B12 Urine Creatinine Urine Total Protein Heparin-induced Plt Ab Hep Bs Antibody, Quant Crossmatch 12/05/16 12/05/16 12/05/16 04:01 04:30 04:30 WBC 19.1 H RBC 2.91 L Hgb 8.0 L Hct 25.4 L MCV MCHC RDW 17.8 H Plt Count Lymph % (Auto) [place] % (Auto) [place] # Seg Neutrophils % Seg Neuts % (Manual) 17.0 L Lymphocytes % (Manual) 7.0 L Monocytes % (Manual) Nucleated RBC % 3.0 H Seg Neutrophils # Seg Neutrophils # Man Lymphocytes # (Manual) Monocytes # (Manual) Percent Retic Haptoglobin PT INR Fibrinogen D-Dimer POC ABG pH POC ABG pCO2 POC ABG pO2 Sodium 152 H Potassium Chloride 113.5 H Carbon Dioxide 12 L BUN 47 H Creatinine 3.2 H Glucose 133 H POC Glucose 179 H Lactic Acid Calcium 8.3 L Phosphorus 1.00 L D Magnesium Iron TIBC Transferrin Total Bilirubin Direct Bilirubin AST ALT Alkaline Phosphatase Lactate Dehydrogenase CK-MB (CK-2) Troponin T C-Reactive Protein Total Protein Albumin Triglycerides Cholesterol HDL Cholesterol Vitamin B12 Urine Creatinine Urine Total Protein Heparin-induced Plt Ab Hep Bs Antibody, Quant Crossmatch 12/05/16 12/05/16 12/05/16 05:32 08:01 08:48 WBC RBC Hgb Hct MCV MCHC RDW Plt Count Lymph % (Auto) [place] % (Auto) [place] # Seg Neutrophils % Seg Neuts % (Manual) Lymphocytes % (Manual) Monocytes % (Manual) Nucleated RBC % Seg Neutrophils # Seg Neutrophils # Man Lymphocytes # (Manual) Monocytes # (Manual) Percent Retic Haptoglobin PT INR Fibrinogen D-Dimer POC ABG pH POC ABG pCO2 17.6 L POC ABG pO2 62 L Sodium Potassium Chloride Carbon Dioxide BUN Creatinine Glucose POC Glucose 126 H 130 H Lactic Acid Calcium Phosphorus Magnesium Iron TIBC Transferrin Total Bilirubin Direct Bilirubin AST ALT Alkaline Phosphatase Lactate Dehydrogenase CK-MB (CK-2) Troponin T C-Reactive Protein Total Protein Albumin Triglycerides Cholesterol HDL Cholesterol Vitamin B12 Urine Creatinine Urine Total Protein Heparin-induced Plt Ab Hep Bs Antibody, Quant Crossmatch 12/05/16 12/05/16 12/05/16 08:54 12:01 15:15 WBC RBC Hgb Hct MCV MCHC RDW Plt Count Lymph % (Auto) [place] % (Auto) [place] # Seg Neutrophils % Seg Neuts % (Manual) Lymphocytes % (Manual) Monocytes % (Manual) Nucleated RBC % Seg Neutrophils # Seg Neutrophils # Man Lymphocytes # (Manual) Monocytes # (Manual) Percent Retic Haptoglobin PT INR Fibrinogen D-Dimer POC ABG pH POC ABG pCO2 POC ABG pO2 Sodium Potassium Chloride Carbon Dioxide BUN Creatinine Glucose POC Glucose 157 H 117 H 166 H Lactic Acid Calcium Phosphorus Magnesium Iron TIBC Transferrin Total Bilirubin Direct Bilirubin AST ALT Alkaline Phosphatase Lactate Dehydrogenase CK-MB (CK-2) Troponin T C-Reactive Protein Total Protein Albumin Triglycerides Cholesterol HDL Cholesterol Vitamin B12 Urine Creatinine Urine Total Protein Heparin-induced Plt Ab Hep Bs Antibody, Quant Crossmatch 12/05/16 12/05/16 12/05/16 16:10 16:55 17:08 WBC RBC Hgb Hct MCV MCHC RDW Plt Count Lymph % (Auto) [place] % (Auto) [place] # Seg Neutrophils % Seg Neuts % (Manual) Lymphocytes % (Manual) Monocytes % (Manual) Nucleated RBC % Seg Neutrophils # Seg Neutrophils # Man Lymphocytes # (Manual) Monocytes # (Manual) Percent Retic Haptoglobin PT INR Fibrinogen D-Dimer POC ABG pH POC ABG pCO2 POC ABG pO2 Sodium Potassium Chloride Carbon Dioxide BUN Creatinine Glucose POC Glucose 178 H 169 H Lactic Acid Calcium Phosphorus 5.00 H D Magnesium Iron TIBC Transferrin Total Bilirubin Direct Bilirubin AST ALT Alkaline Phosphatase Lactate Dehydrogenase CK-MB (CK-2) Troponin T C-Reactive Protein Total Protein Albumin Triglycerides Cholesterol HDL Cholesterol Vitamin B12 Urine Creatinine Urine Total Protein Heparin-induced Plt Ab Hep Bs Antibody, Quant Crossmatch 12/05/16 12/05/16 12/05/16 18:08 18:51 20:04 WBC RBC Hgb Hct MCV MCHC RDW Plt Count Lymph % (Auto) [place] % (Auto) [place] # Seg Neutrophils % Seg Neuts % (Manual) Lymphocytes % (Manual) Monocytes % (Manual) Nucleated RBC % Seg Neutrophils # Seg Neutrophils # Man Lymphocytes # (Manual) Monocytes # (Manual) Percent Retic Haptoglobin PT INR Fibrinogen D-Dimer POC ABG pH POC ABG pCO2 POC ABG pO2 Sodium Potassium Chloride Carbon Dioxide BUN Creatinine Glucose POC Glucose 147 H 113 H 64 L Lactic Acid Calcium Phosphorus Magnesium Iron TIBC Transferrin Total Bilirubin Direct Bilirubin AST ALT Alkaline Phosphatase Lactate Dehydrogenase CK-MB (CK-2) Troponin T C-Reactive Protein Total Protein Albumin Triglycerides Cholesterol HDL Cholesterol Vitamin B12 Urine Creatinine Urine Total Protein Heparin-induced Plt Ab Hep Bs Antibody, Quant Crossmatch 12/05/16 12/05/16 12/05/16 21:34 22:08 23:19 WBC RBC Hgb Hct MCV MCHC RDW Plt Count Lymph % (Auto) [place] % (Auto) [place] # Seg Neutrophils % Seg Neuts % (Manual) Lymphocytes % (Manual) Monocytes % (Manual) Nucleated RBC % Seg Neutrophils # Seg Neutrophils # Man Lymphocytes # (Manual) Monocytes # (Manual) Percent Retic Haptoglobin PT INR Fibrinogen D-Dimer POC ABG pH 7.303 L POC ABG pCO2 18.3 L POC ABG pO2 73 L Sodium Potassium Chloride Carbon Dioxide BUN Creatinine Glucose POC Glucose 141 H 200 H Lactic Acid Calcium Phosphorus Magnesium Iron TIBC Transferrin Total Bilirubin Direct Bilirubin AST ALT Alkaline Phosphatase Lactate Dehydrogenase CK-MB (CK-2) Troponin T C-Reactive Protein Total Protein Albumin Triglycerides Cholesterol HDL Cholesterol Vitamin B12 Urine Creatinine Urine Total Protein Heparin-induced Plt Ab Hep Bs Antibody, Quant Crossmatch 12/06/16 12/06/16 12/06/16 00:01 01:09 02:00 WBC RBC Hgb Hct MCV MCHC RDW Plt Count Lymph % (Auto) [place] % (Auto) [place] # Seg Neutrophils % Seg Neuts % (Manual) Lymphocytes % (Manual) Monocytes % (Manual) Nucleated RBC % Seg Neutrophils # Seg Neutrophils # Man Lymphocytes # (Manual) Monocytes # (Manual) Percent Retic Haptoglobin PT INR Fibrinogen D-Dimer POC ABG pH POC ABG pCO2 POC ABG pO2 Sodium Potassium Chloride Carbon Dioxide BUN Creatinine Glucose POC Glucose 211 H 116 H 57 L Lactic Acid Calcium Phosphorus Magnesium Iron TIBC Transferrin Total Bilirubin Direct Bilirubin AST ALT Alkaline Phosphatase Lactate Dehydrogenase CK-MB (CK-2) Troponin T C-Reactive Protein Total Protein Albumin Triglycerides Cholesterol HDL Cholesterol Vitamin B12 Urine Creatinine Urine Total Protein Heparin-induced Plt Ab Hep Bs Antibody, Quant Crossmatch 12/06/16 12/06/16 12/06/16 04:14 04:50 04:50 WBC RBC 2.68 L Hgb 7.6 L Hct 23.2 L MCV MCHC RDW 18.9 H Plt Count Lymph % (Auto) [place] % (Auto) [place] # Seg Neutrophils % Seg Neuts % (Manual) 32.0 L Lymphocytes % (Manual) Monocytes % (Manual) Nucleated RBC % 3.0 H Seg Neutrophils # Seg Neutrophils # Man Lymphocytes # (Manual) 0.9 L Monocytes # (Manual) Percent Retic Haptoglobin PT INR Fibrinogen D-Dimer POC ABG pH POC ABG pCO2 POC ABG pO2 Sodium Potassium 5.8 H D Chloride 111.5 H Carbon Dioxide 11 L BUN 52 H Creatinine 3.8 H Glucose 186 H POC Glucose 133 H Lactic Acid Calcium 6.5 L D Phosphorus 5.80 H Magnesium Iron TIBC Transferrin Total Bilirubin Direct Bilirubin AST ALT Alkaline Phosphatase Lactate Dehydrogenase CK-MB (CK-2) Troponin T C-Reactive Protein Total Protein Albumin Triglycerides Cholesterol HDL Cholesterol Vitamin B12 Urine Creatinine Urine Total Protein Heparin-induced Plt Ab Hep Bs Antibody, Quant Crossmatch 12/06/16 12/06/16 12/06/16 04:50 05:04 05:07 WBC RBC Hgb Hct MCV MCHC RDW Plt Count Lymph % (Auto) [place] % (Auto) [place] # Seg Neutrophils % Seg Neuts % (Manual) Lymphocytes % (Manual) Monocytes % (Manual) Nucleated RBC % Seg Neutrophils # Seg Neutrophils # Man Lymphocytes # (Manual) Monocytes # (Manual) Percent Retic Haptoglobin PT INR Fibrinogen D-Dimer POC ABG pH POC ABG pCO2 13.0 L POC ABG pO2 111 H Sodium Potassium Chloride Carbon Dioxide BUN Creatinine Glucose POC Glucose 127 H Lactic Acid 6.50 H* Calcium Phosphorus Magnesium Iron TIBC Transferrin Total Bilirubin Direct Bilirubin AST ALT Alkaline Phosphatase Lactate Dehydrogenase CK-MB (CK-2) Troponin T C-Reactive Protein Total Protein Albumin Triglycerides Cholesterol HDL Cholesterol Vitamin B12 Urine Creatinine Urine Total Protein Heparin-induced Plt Ab Hep Bs Antibody, Quant Crossmatch 12/06/16 12/06/16 12/06/16 06:10 06:54 07:46 WBC RBC Hgb Hct MCV MCHC RDW Plt Count Lymph % (Auto) [place] % (Auto) [place] # Seg Neutrophils % Seg Neuts % (Manual) Lymphocytes % (Manual) Monocytes % (Manual) Nucleated RBC % Seg Neutrophils # Seg Neutrophils # Man Lymphocytes # (Manual) Monocytes # (Manual) Percent Retic Haptoglobin PT INR Fibrinogen D-Dimer POC ABG pH POC ABG pCO2 POC ABG pO2 Sodium Potassium Chloride Carbon Dioxide BUN Creatinine Glucose POC Glucose 219 H 237 H 158 H Lactic Acid Calcium Phosphorus Magnesium Iron TIBC Transferrin Total Bilirubin Direct Bilirubin AST ALT Alkaline Phosphatase Lactate Dehydrogenase CK-MB (CK-2) Troponin T C-Reactive Protein Total Protein Albumin Triglycerides Cholesterol HDL Cholesterol Vitamin B12 Urine Creatinine Urine Total Protein Heparin-induced Plt Ab Hep Bs Antibody, Quant Crossmatch 12/06/16 12/06/16 12/06/16 08:55 10:27 11:58 WBC RBC Hgb Hct MCV MCHC RDW Plt Count Lymph % (Auto) [place] % (Auto) [place] # Seg Neutrophils % Seg Neuts % (Manual) Lymphocytes % (Manual) Monocytes % (Manual) Nucleated RBC % Seg Neutrophils # Seg Neutrophils # Man Lymphocytes # (Manual) Monocytes # (Manual) Percent Retic Haptoglobin PT INR Fibrinogen D-Dimer POC ABG pH POC ABG pCO2 POC ABG pO2 Sodium Potassium Chloride Carbon Dioxide BUN Creatinine Glucose POC Glucose 40 L 128 H 144 H Lactic Acid Calcium Phosphorus Magnesium Iron TIBC Transferrin Total Bilirubin Direct Bilirubin AST ALT Alkaline Phosphatase Lactate Dehydrogenase CK-MB (CK-2) Troponin T C-Reactive Protein Total Protein Albumin Triglycerides Cholesterol HDL Cholesterol Vitamin B12 Urine Creatinine Urine Total Protein Heparin-induced Plt Ab Hep Bs Antibody, Quant Crossmatch 12/06/16 12/06/16 12/06/16 18:14 19:00 19:06 WBC RBC Hgb Hct MCV MCHC RDW Plt Count Lymph % (Auto) [place] % (Auto) [place] # Seg Neutrophils % Seg Neuts % (Manual) Lymphocytes % (Manual) Monocytes % (Manual) Nucleated RBC % Seg Neutrophils # Seg Neutrophils # Man Lymphocytes # (Manual) Monocytes # (Manual) Percent Retic Haptoglobin PT INR Fibrinogen D-Dimer POC ABG pH POC ABG pCO2 POC ABG pO2 Sodium 149 H Potassium 5.6 H Chloride 115.9 H Carbon Dioxide 13 L BUN 56 H Creatinine 4.3 H Glucose 124 H POC Glucose 55 L 148 H Lactic Acid Calcium 6.0 L Phosphorus Magnesium Iron TIBC Transferrin Total Bilirubin Direct Bilirubin AST ALT Alkaline Phosphatase Lactate Dehydrogenase CK-MB (CK-2) Troponin T C-Reactive Protein Total Protein Albumin Triglycerides Cholesterol HDL Cholesterol Vitamin B12 Urine Creatinine Urine Total Protein Heparin-induced Plt Ab Hep Bs Antibody, Quant Crossmatch 12/06/16 12/06/16 12/07/16 21:24 21:51 02:32 WBC RBC Hgb Hct MCV MCHC RDW Plt Count Lymph % (Auto) [place] % (Auto) [place] # Seg Neutrophils % Seg Neuts % (Manual) Lymphocytes % (Manual) Monocytes % (Manual) Nucleated RBC % Seg Neutrophils # Seg Neutrophils # Man Lymphocytes # (Manual) Monocytes # (Manual) Percent Retic Haptoglobin PT INR Fibrinogen D-Dimer POC ABG pH POC ABG pCO2 17.0 L POC ABG pO2 142 H Sodium Potassium Chloride Carbon Dioxide BUN Creatinine Glucose POC Glucose 107 H 175 H Lactic Acid Calcium Phosphorus Magnesium Iron TIBC Transferrin Total Bilirubin Direct Bilirubin AST ALT Alkaline Phosphatase Lactate Dehydrogenase CK-MB (CK-2) Troponin T C-Reactive Protein Total Protein Albumin Triglycerides Cholesterol HDL Cholesterol Vitamin B12 Urine Creatinine Urine Total Protein Heparin-induced Plt Ab Hep Bs Antibody, Quant Crossmatch 12/07/16 12/07/16 12/07/16 05:01 05:25 06:00 WBC RBC 2.52 L Hgb 7.1 L Hct 22.1 L MCV MCHC RDW 19.3 H Plt Count 90 L Lymph % (Auto) [place] % (Auto) [place] # Seg Neutrophils % Seg Neuts % (Manual) 75.0 H Lymphocytes % (Manual) 11.0 L Monocytes % (Manual) Nucleated RBC % Seg Neutrophils # Seg Neutrophils # Man Lymphocytes # (Manual) 0.7 L Monocytes # (Manual) Percent Retic Haptoglobin PT INR Fibrinogen D-Dimer POC ABG pH 7.300 L POC ABG pCO2 17.1 L POC ABG pO2 140 H Sodium Potassium Chloride Carbon Dioxide BUN Creatinine Glucose POC Glucose 279 H Lactic Acid Calcium Phosphorus Magnesium Iron TIBC Transferrin Total Bilirubin Direct Bilirubin AST ALT Alkaline Phosphatase Lactate Dehydrogenase CK-MB (CK-2) Troponin T C-Reactive Protein Total Protein Albumin Triglycerides Cholesterol HDL Cholesterol Vitamin B12 Urine Creatinine Urine Total Protein Heparin-induced Plt Ab Hep Bs Antibody, Quant Crossmatch 12/07/16 12/07/16 12/07/16 06:00 06:00 07:30 WBC RBC Hgb Hct MCV MCHC RDW Plt Count Lymph % (Auto) [place] % (Auto) [place] # Seg Neutrophils % Seg Neuts % (Manual) Lymphocytes % (Manual) Monocytes % (Manual) Nucleated RBC % Seg Neutrophils # Seg Neutrophils # Man Lymphocytes # (Manual) Monocytes # (Manual) Percent Retic Haptoglobin PT INR Fibrinogen D-Dimer POC ABG pH POC ABG pCO2 POC ABG pO2 Sodium Potassium Chloride Carbon Dioxide BUN Creatinine Glucose POC Glucose Lactic Acid 6.90 H* Calcium Phosphorus 6.80 H Magnesium Iron TIBC Transferrin Total Bilirubin Direct Bilirubin AST ALT Alkaline Phosphatase Lactate Dehydrogenase CK-MB (CK-2) Troponin T C-Reactive Protein 39.40 H Total Protein Albumin Triglycerides Cholesterol HDL Cholesterol Vitamin B12 Urine Creatinine Urine Total Protein Heparin-induced Plt Ab Hep Bs Antibody, Quant Crossmatch 12/07/16 12/07/16 12/07/16 08:40 10:53 14:31 WBC RBC Hgb Hct MCV MCHC RDW Plt Count Lymph % (Auto) [place] % (Auto) [place] # Seg Neutrophils % Seg Neuts % (Manual) Lymphocytes % (Manual) Monocytes % (Manual) Nucleated RBC % Seg Neutrophils # Seg Neutrophils # Man Lymphocytes # (Manual) Monocytes # (Manual) Percent Retic Haptoglobin PT INR Fibrinogen D-Dimer POC ABG pH POC ABG pCO2 POC ABG pO2 Sodium Potassium 7.0 H* D Chloride 112.4 H Carbon Dioxide 8 L* BUN 61 H Creatinine 5.1 H Glucose 213 H POC Glucose 353 H 52 L Lactic Acid Calcium 5.8 L* Phosphorus Magnesium Iron TIBC Transferrin Total Bilirubin Direct Bilirubin AST ALT Alkaline Phosphatase Lactate Dehydrogenase CK-MB (CK-2) Troponin T C-Reactive Protein Total Protein Albumin Triglycerides Cholesterol HDL Cholesterol Vitamin B12 Urine Creatinine Urine Total Protein Heparin-induced Plt Ab Hep Bs Antibody, Quant Crossmatch 12/07/16 12/07/16 12/07/16 14:45 15:33 16:22 WBC RBC Hgb Hct MCV MCHC RDW Plt Count Lymph % (Auto) [place] % (Auto) [place] # Seg Neutrophils % Seg Neuts % (Manual) Lymphocytes % (Manual) Monocytes % (Manual) Nucleated RBC % Seg Neutrophils # Seg Neutrophils # Man Lymphocytes # (Manual) Monocytes # (Manual) Percent Retic Haptoglobin PT 17.5 H INR 1.44 H Fibrinogen D-Dimer POC ABG pH POC ABG pCO2 POC ABG pO2 Sodium Potassium Chloride Carbon Dioxide BUN Creatinine Glucose POC Glucose < 40 L 118 H Lactic Acid Calcium Phosphorus Magnesium Iron TIBC Transferrin Total Bilirubin Direct Bilirubin AST ALT Alkaline Phosphatase Lactate Dehydrogenase CK-MB (CK-2) Troponin T C-Reactive Protein Total Protein Albumin Triglycerides Cholesterol HDL Cholesterol Vitamin B12 Urine Creatinine Urine Total Protein Heparin-induced Plt Ab Hep Bs Antibody, Quant Crossmatch 12/07/16 12/07/16 12/07/16 21:35 21:35 21:58 WBC RBC Hgb Hct MCV MCHC RDW Plt Count Lymph % (Auto) [place] % (Auto) [place] # Seg Neutrophils % Seg Neuts % (Manual) Lymphocytes % (Manual) Monocytes % (Manual) Nucleated RBC % Seg Neutrophils # Seg Neutrophils # Man Lymphocytes # (Manual) Monocytes # (Manual) Percent Retic Haptoglobin PT INR Fibrinogen D-Dimer POC ABG pH POC ABG pCO2 POC ABG pO2 Sodium 150 H Potassium 3.3 L D Chloride 111.4 H Carbon Dioxide 21 L D BUN 22 H Creatinine 2.6 H Glucose 23 L* POC Glucose < 40 L Lactic Acid Calcium Phosphorus Magnesium Iron TIBC Transferrin Total Bilirubin 1.40 H Direct Bilirubin 0.9 H AST 94 H ALT 142 H Alkaline Phosphatase 249 H Lactate Dehydrogenase CK-MB (CK-2) Troponin T C-Reactive Protein Total Protein 4.6 L D Albumin 2.1 L Triglycerides Cholesterol HDL Cholesterol Vitamin B12 Urine Creatinine Urine Total Protein Heparin-induced Plt Ab Hep Bs Antibody, Quant Crossmatch 12/07/16 12/08/16 12/08/16 23:31 04:43 04:50 WBC RBC 2.35 L Hgb 6.6 L Hct 20.1 L MCV MCHC RDW 17.8 H Plt Count 48 L Lymph % (Auto) [place] % (Auto) [place] # Seg Neutrophils % Seg Neuts % (Manual) Lymphocytes % (Manual) Monocytes % (Manual) Nucleated RBC % Seg Neutrophils # Seg Neutrophils # Man Lymphocytes # (Manual) 0.9 L Monocytes # (Manual) Percent Retic Haptoglobin PT INR Fibrinogen D-Dimer POC ABG pH 7.586 H POC ABG pCO2 17.7 L POC ABG pO2 150 H Sodium Potassium Chloride Carbon Dioxide BUN Creatinine Glucose POC Glucose 42 L Lactic Acid Calcium Phosphorus Magnesium Iron TIBC Transferrin Total Bilirubin Direct Bilirubin AST ALT Alkaline Phosphatase Lactate Dehydrogenase CK-MB (CK-2) Troponin T C-Reactive Protein Total Protein Albumin Triglycerides Cholesterol HDL Cholesterol Vitamin B12 Urine Creatinine Urine Total Protein Heparin-induced Plt Ab Hep Bs Antibody, Quant Crossmatch 12/08/16 12/08/16 12/08/16 04:50 04:59 06:54 WBC RBC Hgb Hct MCV MCHC RDW Plt Count Lymph % (Auto) [place] % (Auto) [place] # Seg Neutrophils % Seg Neuts % (Manual) Lymphocytes % (Manual) Monocytes % (Manual) Nucleated RBC % Seg Neutrophils # Seg Neutrophils # Man Lymphocytes # (Manual) Monocytes # (Manual) Percent Retic Haptoglobin PT INR Fibrinogen D-Dimer POC ABG pH POC ABG pCO2 POC ABG pO2 Sodium 149 H Potassium 3.2 L Chloride 111.8 H Carbon Dioxide 17 L BUN 26 H Creatinine 3.4 H Glucose 163 H POC Glucose 204 H 203 H Lactic Acid Calcium 7.7 L Phosphorus 2.40 L D Magnesium Iron TIBC Transferrin Total Bilirubin Direct Bilirubin AST ALT Alkaline Phosphatase Lactate Dehydrogenase CK-MB (CK-2) Troponin T C-Reactive Protein Total Protein Albumin Triglycerides Cholesterol HDL Cholesterol Vitamin B12 Urine Creatinine Urine Total Protein Heparin-induced Plt Ab Hep Bs Antibody, Quant Crossmatch 12/08/16 12/08/16 12/08/16 08:04 08:46 08:46 WBC RBC Hgb Hct MCV MCHC RDW Plt Count Lymph % (Auto) [place] % (Auto) [place] # Seg Neutrophils % Seg Neuts % (Manual) Lymphocytes % (Manual) Monocytes % (Manual) Nucleated RBC % Seg Neutrophils # Seg Neutrophils # Man Lymphocytes # (Manual) Monocytes # (Manual) Percent Retic Haptoglobin PT INR Fibrinogen D-Dimer POC ABG pH POC ABG pCO2 POC ABG pO2 Sodium 147 H Potassium 2.9 L* Chloride 110.6 H Carbon Dioxide 17 L BUN 28 H Creatinine 3.6 H Glucose 127 H POC Glucose 205 H Lactic Acid Calcium 7.3 L Phosphorus Magnesium Iron TIBC Transferrin Total Bilirubin Direct Bilirubin AST ALT Alkaline Phosphatase Lactate Dehydrogenase CK-MB (CK-2) Troponin T C-Reactive Protein Total Protein Albumin Triglycerides Cholesterol HDL Cholesterol Vitamin B12 Urine Creatinine Urine Total Protein Heparin-induced Plt Ab Hep Bs Antibody, Quant Crossmatch See Detail 12/08/16 12/08/16 12/08/16 12:36 19:00 19:00 WBC RBC Hgb Hct MCV MCHC RDW Plt Count Lymph % (Auto) [place] % (Auto) [place] # Seg Neutrophils % Seg Neuts % (Manual) Lymphocytes % (Manual) Monocytes % (Manual) Nucleated RBC % Seg Neutrophils # Seg Neutrophils # Man Lymphocytes # (Manual) Monocytes # (Manual) Percent Retic Haptoglobin PT 15.3 H INR 1.22 H Fibrinogen 563 H D-Dimer 5507.36 H POC ABG pH POC ABG pCO2 POC ABG pO2 Sodium Potassium Chloride Carbon Dioxide 21 L BUN Creatinine 1.7 H D Glucose 155 H POC Glucose 181 H Lactic Acid Calcium Phosphorus Magnesium Iron TIBC Transferrin Total Bilirubin Direct Bilirubin AST ALT Alkaline Phosphatase Lactate Dehydrogenase CK-MB (CK-2) Troponin T C-Reactive Protein Total Protein Albumin Triglycerides Cholesterol HDL Cholesterol Vitamin B12 Urine Creatinine Urine Total Protein Heparin-induced Plt Ab Hep Bs Antibody, Quant Crossmatch 12/08/16 12/08/16 12/08/16 19:00 19:00 21:30 WBC RBC 2.76 L Hgb 7.8 L Hct 23.7 L MCV MCHC RDW 17.0 H Plt Count 38 L Lymph % (Auto) [place] % (Auto) [place] # Seg Neutrophils % Seg Neuts % (Manual) Lymphocytes % (Manual) Monocytes % (Manual) Nucleated RBC % Seg Neutrophils # Seg Neutrophils # Man Lymphocytes # (Manual) Monocytes # (Manual) Percent Retic Haptoglobin 271 H PT INR Fibrinogen D-Dimer POC ABG pH POC ABG pCO2 POC ABG pO2 Sodium Potassium Chloride Carbon Dioxide BUN Creatinine Glucose POC Glucose Lactic Acid Calcium Phosphorus Magnesium Iron TIBC Transferrin Total Bilirubin Direct Bilirubin AST ALT Alkaline Phosphatase Lactate Dehydrogenase 382 H CK-MB (CK-2) Troponin T C-Reactive Protein Total Protein Albumin Triglycerides Cholesterol HDL Cholesterol Vitamin B12 Urine Creatinine Urine Total Protein Heparin-induced Plt Ab Hep Bs Antibody, Quant Crossmatch 12/08/16 12/08/16 12/09/16 23:32 23:44 05:22 WBC RBC Hgb Hct MCV MCHC RDW Plt Count Lymph % (Auto) [place] % (Auto) [place] # Seg Neutrophils % Seg Neuts % (Manual) Lymphocytes % (Manual) Monocytes % (Manual) Nucleated RBC % Seg Neutrophils # Seg Neutrophils # Man Lymphocytes # (Manual) Monocytes # (Manual) Percent Retic Haptoglobin PT INR Fibrinogen D-Dimer POC ABG pH 7.498 H POC ABG pCO2 25.2 L POC ABG pO2 137 H Sodium Potassium Chloride Carbon Dioxide BUN Creatinine Glucose POC Glucose 311 H 113 H Lactic Acid Calcium Phosphorus Magnesium Iron TIBC Transferrin Total Bilirubin Direct Bilirubin AST ALT Alkaline Phosphatase Lactate Dehydrogenase CK-MB (CK-2) Troponin T C-Reactive Protein Total Protein Albumin Triglycerides Cholesterol HDL Cholesterol Vitamin B12 Urine Creatinine Urine Total Protein Heparin-induced Plt Ab Hep Bs Antibody, Quant Crossmatch 12/09/16 12/09/16 12/09/16 06:00 11:29 11:59 WBC RBC Hgb Hct MCV MCHC RDW Plt Count Lymph % (Auto) [place] % (Auto) [place] # Seg Neutrophils % Seg Neuts % (Manual) Lymphocytes % (Manual) Monocytes % (Manual) Nucleated RBC % Seg Neutrophils # Seg Neutrophils # Man Lymphocytes # (Manual) Monocytes # (Manual) Percent Retic 0.23 L Haptoglobin PT INR Fibrinogen D-Dimer POC ABG pH POC ABG pCO2 POC ABG pO2 Sodium Potassium Chloride 110.2 H Carbon Dioxide 18 L BUN 19 H Creatinine 2.5 H Glucose 105 H POC Glucose 254 H Lactic Acid Calcium Phosphorus 2.00 L Magnesium Iron TIBC Transferrin Total Bilirubin Direct Bilirubin AST ALT Alkaline Phosphatase Lactate Dehydrogenase CK-MB (CK-2) Troponin T C-Reactive Protein Total Protein Albumin Triglycerides Cholesterol HDL Cholesterol Vitamin B12 Urine Creatinine Urine Total Protein Heparin-induced Plt Ab Hep Bs Antibody, Quant Crossmatch 12/09/16 12/09/16 12/09/16 12:02 13:27 13:27 WBC RBC Hgb Hct MCV MCHC RDW Plt Count Lymph % (Auto) [place] % (Auto) [place] # Seg Neutrophils % Seg Neuts % (Manual) Lymphocytes % (Manual) Monocytes % (Manual) Nucleated RBC % Seg Neutrophils # Seg Neutrophils # Man Lymphocytes # (Manual) Monocytes # (Manual) Percent Retic Haptoglobin PT INR Fibrinogen D-Dimer POC ABG pH 7.326 L POC ABG pCO2 POC ABG pO2 115 H Sodium Potassium Chloride Carbon Dioxide BUN Creatinine Glucose POC Glucose Lactic Acid Calcium Phosphorus Magnesium Iron 15 L TIBC 134 L Transferrin Total Bilirubin Direct Bilirubin AST ALT Alkaline Phosphatase Lactate Dehydrogenase CK-MB (CK-2) Troponin T C-Reactive Protein Total Protein Albumin Triglycerides Cholesterol HDL Cholesterol Vitamin B12 > 2000 H Urine Creatinine Urine Total Protein Heparin-induced Plt Ab Hep Bs Antibody, Quant Crossmatch 12/09/16 12/09/16 12/09/16 13:27 13:27 16:28 WBC RBC Hgb Hct MCV MCHC RDW Plt Count Lymph % (Auto) [place] % (Auto) [place] # Seg Neutrophils % Seg Neuts % (Manual) Lymphocytes % (Manual) Monocytes % (Manual) Nucleated RBC % Seg Neutrophils # Seg Neutrophils # Man Lymphocytes # (Manual) Monocytes # (Manual) Percent Retic Haptoglobin PT INR Fibrinogen D-Dimer POC ABG pH POC ABG pCO2 POC ABG pO2 Sodium Potassium Chloride Carbon Dioxide BUN Creatinine Glucose POC Glucose 199 H Lactic Acid Calcium Phosphorus Magnesium Iron TIBC Transferrin Total Bilirubin Direct Bilirubin AST ALT Alkaline Phosphatase Lactate Dehydrogenase CK-MB (CK-2) Troponin T C-Reactive Protein Total Protein Albumin Triglycerides Cholesterol HDL Cholesterol Vitamin B12 Urine Creatinine Urine Total Protein Heparin-induced Plt Ab Weak positive H Hep Bs Antibody, Quant <5 L Crossmatch 12/09/16 12/09/16 12/10/16 23:27 Unknown 05:36 WBC 11.3 H RBC 2.92 L Hgb 8.4 L Hct 25.3 L MCV MCHC RDW 16.9 H Plt Count 31 L Lymph % (Auto) [place] % (Auto) [place] # Seg Neutrophils % Seg Neuts % (Manual) Lymphocytes % (Manual) Monocytes % (Manual) Nucleated RBC % Seg Neutrophils # Seg Neutrophils # Man Lymphocytes # (Manual) Monocytes # (Manual) Percent Retic Haptoglobin PT INR Fibrinogen D-Dimer POC ABG pH POC ABG pCO2 POC ABG pO2 Sodium Potassium Chloride Carbon Dioxide BUN Creatinine Glucose POC Glucose 247 H 248 H Lactic Acid Calcium Phosphorus Magnesium Iron TIBC Transferrin Total Bilirubin Direct Bilirubin AST ALT Alkaline Phosphatase Lactate Dehydrogenase CK-MB (CK-2) Troponin T C-Reactive Protein Total Protein Albumin Triglycerides Cholesterol HDL Cholesterol Vitamin B12 Urine Creatinine Urine Total Protein Heparin-induced Plt Ab Hep Bs Antibody, Quant Crossmatch 12/10/16 12/10/16 12/10/16 09:55 09:55 11:49 WBC 21.2 H RBC 3.37 L Hgb 9.6 L Hct 29.5 L MCV MCHC RDW 16.3 H Plt Count 102 L D Lymph % (Auto) [place] % (Auto) [place] # Seg Neutrophils % Seg Neuts % (Manual) Lymphocytes % (Manual) Monocytes % (Manual) Nucleated RBC % Seg Neutrophils # Seg Neutrophils # Man Lymphocytes # (Manual) Monocytes # (Manual) Percent Retic Haptoglobin PT INR Fibrinogen D-Dimer POC ABG pH POC ABG pCO2 POC ABG pO2 Sodium Potassium Chloride 107.4 H Carbon Dioxide 21 L BUN 37 H Creatinine 4.2 H D Glucose 174 H POC Glucose 265 H Lactic Acid Calcium Phosphorus Magnesium Iron TIBC Transferrin Total Bilirubin Direct Bilirubin AST ALT Alkaline Phosphatase Lactate Dehydrogenase CK-MB (CK-2) Troponin T C-Reactive Protein Total Protein Albumin Triglycerides Cholesterol HDL Cholesterol Vitamin B12 Urine Creatinine Urine Total Protein Heparin-induced Plt Ab Hep Bs Antibody, Quant Crossmatch 12/10/16 12/10/16 12/11/16 17:56 23:44 04:30 WBC 23.5 H RBC 3.46 L Hgb 9.7 L Hct 30.1 L MCV MCHC RDW 16.4 H Plt Count 115 L Lymph % (Auto) [place] % (Auto) [place] # Seg Neutrophils % Seg Neuts % (Manual) 84.0 H Lymphocytes % (Manual) 5.0 L Monocytes % (Manual) 10.0 H Nucleated RBC % 1.0 H Seg Neutrophils # Seg Neutrophils # Man 19.7 H Lymphocytes # (Manual) Monocytes # (Manual) 2.4 H Percent Retic Haptoglobin PT INR Fibrinogen D-Dimer POC ABG pH POC ABG pCO2 POC ABG pO2 Sodium Potassium Chloride Carbon Dioxide BUN Creatinine Glucose POC Glucose 118 H 378 H Lactic Acid Calcium Phosphorus Magnesium Iron TIBC Transferrin Total Bilirubin Direct Bilirubin AST ALT Alkaline Phosphatase Lactate Dehydrogenase CK-MB (CK-2) Troponin T C-Reactive Protein Total Protein Albumin Triglycerides Cholesterol HDL Cholesterol Vitamin B12 Urine Creatinine Urine Total Protein Heparin-induced Plt Ab Hep Bs Antibody, Quant Crossmatch 12/11/16 12/11/16 12/11/16 04:30 05:33 12:48 WBC RBC Hgb Hct MCV MCHC RDW Plt Count Lymph % (Auto) [place] % (Auto) [place] # Seg Neutrophils % Seg Neuts % (Manual) Lymphocytes % (Manual) Monocytes % (Manual) Nucleated RBC % Seg Neutrophils # Seg Neutrophils # Man Lymphocytes # (Manual) Monocytes # (Manual) Percent Retic Haptoglobin PT INR Fibrinogen D-Dimer POC ABG pH POC ABG pCO2 POC ABG pO2 Sodium Potassium Chloride Carbon Dioxide 21 L BUN 50 H Creatinine 4.8 H Glucose 303 H POC Glucose 335 H 325 H Lactic Acid Calcium 8.2 L Phosphorus Magnesium Iron TIBC Transferrin Total Bilirubin Direct Bilirubin AST ALT Alkaline Phosphatase Lactate Dehydrogenase CK-MB (CK-2) Troponin T C-Reactive Protein Total Protein Albumin Triglycerides Cholesterol HDL Cholesterol Vitamin B12 Urine Creatinine Urine Total Protein Heparin-induced Plt Ab Hep Bs Antibody, Quant Crossmatch 12/11/16 12/11/16 12/12/16 17:49 21:16 00:49 WBC RBC Hgb Hct MCV MCHC RDW Plt Count Lymph % (Auto) [place] % (Auto) [place] # Seg Neutrophils % Seg Neuts % (Manual) Lymphocytes % (Manual) Monocytes % (Manual) Nucleated RBC % Seg Neutrophils # Seg Neutrophils # Man Lymphocytes # (Manual) Monocytes # (Manual) Percent Retic Haptoglobin PT INR Fibrinogen D-Dimer POC ABG pH POC ABG pCO2 POC ABG pO2 Sodium Potassium Chloride Carbon Dioxide BUN Creatinine Glucose POC Glucose 368 H 162 H 225 H Lactic Acid Calcium Phosphorus Magnesium Iron TIBC Transferrin Total Bilirubin Direct Bilirubin AST ALT Alkaline Phosphatase Lactate Dehydrogenase CK-MB (CK-2) Troponin T C-Reactive Protein Total Protein Albumin Triglycerides Cholesterol HDL Cholesterol Vitamin B12 Urine Creatinine Urine Total Protein Heparin-induced Plt Ab Hep Bs Antibody, Quant Crossmatch 12/12/16 12/12/16 12/12/16 06:09 07:52 08:18 WBC 24.1 H RBC 3.16 L Hgb 9.0 L Hct 29.4 L MCV MCHC RDW 16.6 H Plt Count 96 L Lymph % (Auto) [place] % (Auto) [place] # Seg Neutrophils % Seg Neuts % (Manual) 75.0 H Lymphocytes % (Manual) Monocytes % (Manual) Nucleated RBC % Seg Neutrophils # Seg Neutrophils # Man 18.1 H Lymphocytes # (Manual) Monocytes # (Manual) 1.4 H Percent Retic Haptoglobin PT INR Fibrinogen D-Dimer POC ABG pH POC ABG pCO2 POC ABG pO2 Sodium Potassium Chloride Carbon Dioxide BUN Creatinine Glucose POC Glucose 428 H 418 H Lactic Acid Calcium Phosphorus Magnesium Iron TIBC Transferrin Total Bilirubin Direct Bilirubin AST ALT Alkaline Phosphatase Lactate Dehydrogenase CK-MB (CK-2) Troponin T C-Reactive Protein Total Protein Albumin Triglycerides Cholesterol HDL Cholesterol Vitamin B12 Urine Creatinine Urine Total Protein Heparin-induced Plt Ab Hep Bs Antibody, Quant Crossmatch 12/12/16 12/12/16 12/12/16 08:18 11:31 17:03 WBC RBC Hgb Hct MCV MCHC RDW Plt Count Lymph % (Auto) [place] % (Auto) [place] # Seg Neutrophils % Seg Neuts % (Manual) Lymphocytes % (Manual) Monocytes % (Manual) Nucleated RBC % Seg Neutrophils # Seg Neutrophils # Man Lymphocytes # (Manual) Monocytes # (Manual) Percent Retic Haptoglobin PT INR Fibrinogen D-Dimer POC ABG pH POC ABG pCO2 POC ABG pO2 Sodium Potassium Chloride Carbon Dioxide 12 L D BUN 41 H Creatinine 4.5 H Glucose 369 H POC Glucose 212 H 422 H Lactic Acid Calcium Phosphorus Magnesium Iron TIBC Transferrin Total Bilirubin Direct Bilirubin AST ALT Alkaline Phosphatase Lactate Dehydrogenase CK-MB (CK-2) Troponin T C-Reactive Protein Total Protein Albumin Triglycerides Cholesterol HDL Cholesterol Vitamin B12 Urine Creatinine Urine Total Protein Heparin-induced Plt Ab Hep Bs Antibody, Quant Crossmatch 12/12/16 12/13/16 12/13/16 21:35 07:49 07:49 WBC 24.0 H RBC 2.90 L Hgb 8.3 L Hct 25.8 L MCV MCHC RDW 15.5 H Plt Count 120 L Lymph % (Auto) [place] % (Auto) [place] # Seg Neutrophils % Seg Neuts % (Manual) 89.0 H Lymphocytes % (Manual) 7.0 L Monocytes % (Manual) Nucleated RBC % Seg Neutrophils # Seg Neutrophils # Man 21.4 H Lymphocytes # (Manual) Monocytes # (Manual) Percent Retic Haptoglobin PT INR Fibrinogen D-Dimer POC ABG pH POC ABG pCO2 POC ABG pO2 Sodium Potassium 3.2 L Chloride Carbon Dioxide BUN 21 H Creatinine 3.0 H Glucose 21 L* POC Glucose 185 H Lactic Acid Calcium Phosphorus Magnesium Iron TIBC Transferrin Total Bilirubin Direct Bilirubin AST ALT Alkaline Phosphatase Lactate Dehydrogenase CK-MB (CK-2) Troponin T C-Reactive Protein Total Protein Albumin Triglycerides Cholesterol HDL Cholesterol Vitamin B12 Urine Creatinine Urine Total Protein Heparin-induced Plt Ab Hep Bs Antibody, Quant Crossmatch 12/13/16 12/13/16 12/13/16 09:57 11:02 16:52 WBC RBC Hgb Hct MCV MCHC RDW Plt Count Lymph % (Auto) [place] % (Auto) [place] # Seg Neutrophils % Seg Neuts % (Manual) Lymphocytes % (Manual) Monocytes % (Manual) Nucleated RBC % Seg Neutrophils # Seg Neutrophils # Man Lymphocytes # (Manual) Monocytes # (Manual) Percent Retic Haptoglobin PT INR Fibrinogen D-Dimer POC ABG pH POC ABG pCO2 POC ABG pO2 Sodium Potassium Chloride Carbon Dioxide BUN Creatinine Glucose POC Glucose < 40 L 231 H 312 H Lactic Acid Calcium Phosphorus Magnesium Iron TIBC Transferrin Total Bilirubin Direct Bilirubin AST ALT Alkaline Phosphatase Lactate Dehydrogenase CK-MB (CK-2) Troponin T C-Reactive Protein Total Protein Albumin Triglycerides Cholesterol HDL Cholesterol Vitamin B12 Urine Creatinine Urine Total Protein Heparin-induced Plt Ab Hep Bs Antibody, Quant Crossmatch 12/13/16 12/14/16 12/14/16 21:32 07:07 07:07 WBC 16.7 H RBC 2.80 L Hgb 7.9 L Hct 24.7 L MCV MCHC RDW 15.4 H Plt Count 131 L Lymph % (Auto) 13.1 L [place] % (Auto) [place] # 1.2 H Seg Neutrophils % 78.3 H Seg Neuts % (Manual) Lymphocytes % (Manual) Monocytes % (Manual) Nucleated RBC % Seg Neutrophils # 13.1 H Seg Neutrophils # Man Lymphocytes # (Manual) Monocytes # (Manual) Percent Retic Haptoglobin PT INR Fibrinogen D-Dimer POC ABG pH POC ABG pCO2 POC ABG pO2 Sodium Potassium 3.5 L Chloride Carbon Dioxide BUN 30 H Creatinine 4.6 H D Glucose 181 H POC Glucose 275 H Lactic Acid Calcium 7.7 L Phosphorus Magnesium Iron TIBC Transferrin Total Bilirubin Direct Bilirubin AST ALT Alkaline Phosphatase Lactate Dehydrogenase CK-MB (CK-2) Troponin T C-Reactive Protein Total Protein Albumin Triglycerides Cholesterol HDL Cholesterol Vitamin B12 Urine Creatinine Urine Total Protein Heparin-induced Plt Ab Hep Bs Antibody, Quant Crossmatch 12/14/16 12/14/16 12/14/16 07:46 11:35 16:24 WBC RBC Hgb Hct MCV MCHC RDW Plt Count Lymph % (Auto) [place] % (Auto) [place] # Seg Neutrophils % Seg Neuts % (Manual) Lymphocytes % (Manual) Monocytes % (Manual) Nucleated RBC % Seg Neutrophils # Seg Neutrophils # Man Lymphocytes # (Manual) Monocytes # (Manual) Percent Retic Haptoglobin PT INR Fibrinogen D-Dimer POC ABG pH POC ABG pCO2 POC ABG pO2 Sodium Potassium Chloride Carbon Dioxide BUN Creatinine Glucose POC Glucose 189 H 254 H 466 H Lactic Acid Calcium Phosphorus Magnesium Iron TIBC Transferrin Total Bilirubin Direct Bilirubin AST ALT Alkaline Phosphatase Lactate Dehydrogenase CK-MB (CK-2) Troponin T C-Reactive Protein Total Protein Albumin Triglycerides Cholesterol HDL Cholesterol Vitamin B12 Urine Creatinine Urine Total Protein Heparin-induced Plt Ab Hep Bs Antibody, Quant Crossmatch 12/14/16 12/15/16 12/15/16 20:57 06:27 07:46 WBC RBC Hgb Hct MCV MCHC RDW Plt Count Lymph % (Auto) [place] % (Auto) [place] # Seg Neutrophils % Seg Neuts % (Manual) Lymphocytes % (Manual) Monocytes % (Manual) Nucleated RBC % Seg Neutrophils # Seg Neutrophils # Man Lymphocytes # (Manual) Monocytes # (Manual) Percent Retic Haptoglobin PT INR Fibrinogen D-Dimer POC ABG pH POC ABG pCO2 POC ABG pO2 Sodium Potassium Chloride Carbon Dioxide BUN Creatinine Glucose POC Glucose 301 H 183 H 231 H Lactic Acid Calcium Phosphorus Magnesium Iron TIBC Transferrin Total Bilirubin Direct Bilirubin AST ALT Alkaline Phosphatase Lactate Dehydrogenase CK-MB (CK-2) Troponin T C-Reactive Protein Total Protein Albumin Triglycerides Cholesterol HDL Cholesterol Vitamin B12 Urine Creatinine Urine Total Protein Heparin-induced Plt Ab Hep Bs Antibody, Quant Crossmatch 12/15/16 12/15/16 12/15/16 11:38 15:34 20:51 WBC RBC Hgb Hct MCV MCHC RDW Plt Count Lymph % (Auto) [place] % (Auto) [place] # Seg Neutrophils % Seg Neuts % (Manual) Lymphocytes % (Manual) Monocytes % (Manual) Nucleated RBC % Seg Neutrophils # Seg Neutrophils # Man Lymphocytes # (Manual) Monocytes # (Manual) Percent Retic Haptoglobin PT INR Fibrinogen D-Dimer POC ABG pH POC ABG pCO2 POC ABG pO2 Sodium Potassium Chloride Carbon Dioxide BUN Creatinine Glucose POC Glucose 375 H 313 H 274 H Lactic Acid Calcium Phosphorus Magnesium Iron TIBC Transferrin Total Bilirubin Direct Bilirubin AST ALT Alkaline Phosphatase Lactate Dehydrogenase CK-MB (CK-2) Troponin T C-Reactive Protein Total Protein Albumin Triglycerides Cholesterol HDL Cholesterol Vitamin B12 Urine Creatinine Urine Total Protein Heparin-induced Plt Ab Hep Bs Antibody, Quant Crossmatch 12/16/16 12/16/16 12/16/16 08:26 09:12 17:13 WBC RBC Hgb Hct MCV MCHC RDW Plt Count Lymph % (Auto) [place] % (Auto) [place] # Seg Neutrophils % Seg Neuts % (Manual) Lymphocytes % (Manual) Monocytes % (Manual) Nucleated RBC % Seg Neutrophils # Seg Neutrophils # Man Lymphocytes # (Manual) Monocytes # (Manual) Percent Retic Haptoglobin PT INR Fibrinogen D-Dimer POC ABG pH POC ABG pCO2 POC ABG pO2 Sodium Potassium Chloride Carbon Dioxide BUN Creatinine Glucose POC Glucose 59 L 127 H > 500 H Lactic Acid Calcium Phosphorus Magnesium Iron TIBC Transferrin Total Bilirubin Direct Bilirubin AST ALT Alkaline Phosphatase Lactate Dehydrogenase CK-MB (CK-2) Troponin T C-Reactive Protein Total Protein Albumin Triglycerides Cholesterol HDL Cholesterol Vitamin B12 Urine Creatinine Urine Total Protein Heparin-induced Plt Ab Hep Bs Antibody, Quant Crossmatch 12/16/16 12/16/16 12/16/16 22:59 Unknown Unknown WBC 17.2 H RBC 2.83 L Hgb 7.9 L Hct 24.4 L MCV MCHC RDW Plt Count Lymph % (Auto) 9.2 L [place] % (Auto) [place] # 0.9 H Seg Neutrophils % 84.1 H Seg Neuts % (Manual) Lymphocytes % (Manual) Monocytes % (Manual) Nucleated RBC % Seg Neutrophils # 14.5 H Seg Neutrophils # Man Lymphocytes # (Manual) Monocytes # (Manual) Percent Retic Haptoglobin PT INR Fibrinogen D-Dimer POC ABG pH POC ABG pCO2 POC ABG pO2 Sodium Potassium Chloride Carbon Dioxide BUN 43 H Creatinine 5.4 H Glucose 131 H POC Glucose 320 H Lactic Acid Calcium 6.9 L Phosphorus Magnesium Iron TIBC Transferrin Total Bilirubin Direct Bilirubin AST ALT Alkaline Phosphatase Lactate Dehydrogenase CK-MB (CK-2) Troponin T C-Reactive Protein Total Protein Albumin Triglycerides Cholesterol HDL Cholesterol Vitamin B12 Urine Creatinine Urine Total Protein Heparin-induced Plt Ab Hep Bs Antibody, Quant Crossmatch 12/17/16 12/17/16 12/17/16 08:26 08:56 09:52 WBC RBC Hgb Hct MCV MCHC RDW Plt Count Lymph % (Auto) [place] % (Auto) [place] # Seg Neutrophils % Seg Neuts % (Manual) Lymphocytes % (Manual) Monocytes % (Manual) Nucleated RBC % Seg Neutrophils # Seg Neutrophils # Man Lymphocytes # (Manual) Monocytes # (Manual) Percent Retic Haptoglobin PT INR Fibrinogen D-Dimer POC ABG pH POC ABG pCO2 POC ABG pO2 Sodium Potassium Chloride Carbon Dioxide BUN Creatinine Glucose POC Glucose < 40 L 40 L 133 H Lactic Acid Calcium Phosphorus Magnesium Iron TIBC Transferrin Total Bilirubin Direct Bilirubin AST ALT Alkaline Phosphatase Lactate Dehydrogenase CK-MB (CK-2) Troponin T C-Reactive Protein Total Protein Albumin Triglycerides Cholesterol HDL Cholesterol Vitamin B12 Urine Creatinine Urine Total Protein Heparin-induced Plt Ab Hep Bs Antibody, Quant Crossmatch 12/17/16 12/17/16 12/17/16 12:51 16:08 21:00 WBC RBC Hgb Hct MCV MCHC RDW Plt Count Lymph % (Auto) [place] % (Auto) [place] # Seg Neutrophils % Seg Neuts % (Manual) Lymphocytes % (Manual) Monocytes % (Manual) Nucleated RBC % Seg Neutrophils # Seg Neutrophils # Man Lymphocytes # (Manual) Monocytes # (Manual) Percent Retic Haptoglobin PT INR Fibrinogen D-Dimer POC ABG pH POC ABG pCO2 POC ABG pO2 Sodium Potassium Chloride Carbon Dioxide BUN Creatinine Glucose POC Glucose 177 H 303 H 489 H Lactic Acid Calcium Phosphorus Magnesium Iron TIBC Transferrin Total Bilirubin Direct Bilirubin AST ALT Alkaline Phosphatase Lactate Dehydrogenase CK-MB (CK-2) Troponin T C-Reactive Protein Total Protein Albumin Triglycerides Cholesterol HDL Cholesterol Vitamin B12 Urine Creatinine Urine Total Protein Heparin-induced Plt Ab Hep Bs Antibody, Quant Crossmatch 12/17/16 12/17/16 12/18/16 Unknown Unknown 05:50 WBC 16.6 H 15.6 H RBC 2.63 L 2.58 L Hgb 7.5 L 7.3 L Hct 23.3 L 23.0 L MCV MCHC RDW 15.3 H 15.9 H Plt Count Lymph % (Auto) 7.7 L 8.7 L [place] % (Auto) [place] # 0.9 H Seg Neutrophils % 85.8 H 83.6 H Seg Neuts % (Manual) Lymphocytes % (Manual) Monocytes % (Manual) Nucleated RBC % Seg Neutrophils # 14.3 H 13.0 H Seg Neutrophils # Man Lymphocytes # (Manual) Monocytes # (Manual) Percent Retic Haptoglobin PT INR Fibrinogen D-Dimer POC ABG pH POC ABG pCO2 POC ABG pO2 Sodium Potassium 3.5 L Chloride Carbon Dioxide BUN 47 H Creatinine 5.2 H Glucose 173 H POC Glucose Lactic Acid Calcium 6.9 L Phosphorus Magnesium Iron TIBC Transferrin Total Bilirubin Direct Bilirubin AST ALT Alkaline Phosphatase Lactate Dehydrogenase CK-MB (CK-2) Troponin T C-Reactive Protein Total Protein Albumin Triglycerides Cholesterol HDL Cholesterol Vitamin B12 Urine Creatinine Urine Total Protein Heparin-induced Plt Ab Hep Bs Antibody, Quant Crossmatch 12/18/16 12/18/16 12/18/16 05:50 09:09 16:46 WBC RBC Hgb Hct MCV MCHC RDW Plt Count Lymph % (Auto) [place] % (Auto) [place] # Seg Neutrophils % Seg Neuts % (Manual) Lymphocytes % (Manual) Monocytes % (Manual) Nucleated RBC % Seg Neutrophils # Seg Neutrophils # Man Lymphocytes # (Manual) Monocytes # (Manual) Percent Retic Haptoglobin PT INR Fibrinogen D-Dimer POC ABG pH POC ABG pCO2 POC ABG pO2 Sodium Potassium Chloride Carbon Dioxide 17 L BUN 46 H Creatinine 5.0 H Glucose 252 H POC Glucose 349 H 324 H Lactic Acid Calcium 6.8 L Phosphorus Magnesium Iron TIBC Transferrin Total Bilirubin Direct Bilirubin AST ALT Alkaline Phosphatase Lactate Dehydrogenase CK-MB (CK-2) Troponin T C-Reactive Protein Total Protein Albumin Triglycerides Cholesterol HDL Cholesterol Vitamin B12 Urine Creatinine Urine Total Protein Heparin-induced Plt Ab Hep Bs Antibody, Quant Crossmatch 12/18/16 12/19/16 12/19/16 21:14 08:12 10:23 WBC 13.7 H RBC 2.60 L Hgb 7.5 L Hct 23.1 L MCV MCHC RDW 15.7 H Plt Count Lymph % (Auto) 9.1 L [place] % (Auto) [place] # 0.9 H Seg Neutrophils % 82.2 H Seg Neuts % (Manual) Lymphocytes % (Manual) Monocytes % (Manual) Nucleated RBC % Seg Neutrophils # 11.3 H Seg Neutrophils # Man Lymphocytes # (Manual) Monocytes # (Manual) Percent Retic Haptoglobin PT INR Fibrinogen D-Dimer POC ABG pH POC ABG pCO2 POC ABG pO2 Sodium Potassium Chloride Carbon Dioxide BUN Creatinine Glucose POC Glucose 316 H 464 H Lactic Acid Calcium Phosphorus Magnesium Iron TIBC Transferrin Total Bilirubin Direct Bilirubin AST ALT Alkaline Phosphatase Lactate Dehydrogenase CK-MB (CK-2) Troponin T C-Reactive Protein Total Protein Albumin Triglycerides Cholesterol HDL Cholesterol Vitamin B12 Urine Creatinine Urine Total Protein Heparin-induced Plt Ab Hep Bs Antibody, Quant Crossmatch 12/19/16 12/19/16 12/19/16 10:23 11:39 16:00 WBC RBC Hgb Hct MCV MCHC RDW Plt Count Lymph % (Auto) [place] % (Auto) [place] # Seg Neutrophils % Seg Neuts % (Manual) Lymphocytes % (Manual) Monocytes % (Manual) Nucleated RBC % Seg Neutrophils # Seg Neutrophils # Man Lymphocytes # (Manual) Monocytes # (Manual) Percent Retic Haptoglobin PT INR Fibrinogen D-Dimer POC ABG pH POC ABG pCO2 POC ABG pO2 Sodium Potassium 3.5 L Chloride Carbon Dioxide 14 L BUN 22 H Creatinine 3.2 H Glucose 446 H POC Glucose 344 H 467 H Lactic Acid Calcium 6.9 L Phosphorus 1.70 L D Magnesium Iron TIBC Transferrin Total Bilirubin Direct Bilirubin AST ALT Alkaline Phosphatase Lactate Dehydrogenase CK-MB (CK-2) Troponin T C-Reactive Protein Total Protein Albumin Triglycerides Cholesterol HDL Cholesterol Vitamin B12 Urine Creatinine Urine Total Protein Heparin-induced Plt Ab Hep Bs Antibody, Quant Crossmatch 12/19/16 12/19/16 12/19/16 16:35 16:35 21:16 WBC 19.3 H RBC 2.37 L Hgb 6.9 L Hct 21.8 L MCV MCHC RDW 16.7 H Plt Count Lymph % (Auto) [place] % (Auto) [place] # Seg Neutrophils % Seg Neuts % (Manual) Lymphocytes % (Manual) Monocytes % (Manual) Nucleated RBC % Seg Neutrophils # Seg Neutrophils # Man Lymphocytes # (Manual) Monocytes # (Manual) Percent Retic Haptoglobin PT INR Fibrinogen D-Dimer POC ABG pH POC ABG pCO2 POC ABG pO2 Sodium Potassium 3.4 L Chloride Carbon Dioxide 17 L BUN 23 H Creatinine 3.2 H Glucose 427 H POC Glucose 397 H Lactic Acid Calcium 6.9 L Phosphorus 2.40 L D Magnesium Iron TIBC Transferrin Total Bilirubin Direct Bilirubin AST ALT Alkaline Phosphatase Lactate Dehydrogenase CK-MB (CK-2) Troponin T C-Reactive Protein Total Protein Albumin Triglycerides Cholesterol HDL Cholesterol Vitamin B12 Urine Creatinine Urine Total Protein Heparin-induced Plt Ab Hep Bs Antibody, Quant Crossmatch 12/20/16 12/20/16 12/20/16 06:00 06:00 07:55 WBC 17.5 H RBC 2.54 L Hgb 7.3 L Hct 23.5 L MCV MCHC RDW 16.4 H Plt Count Lymph % (Auto) 9.0 L [place] % (Auto) [place] # 1.1 H Seg Neutrophils % 83.0 H Seg Neuts % (Manual) Lymphocytes % (Manual) Monocytes % (Manual) Nucleated RBC % Seg Neutrophils # 14.5 H Seg Neutrophils # Man Lymphocytes # (Manual) Monocytes # (Manual) Percent Retic Haptoglobin PT INR Fibrinogen D-Dimer POC ABG pH POC ABG pCO2 POC ABG pO2 Sodium 136 L Potassium Chloride 92.4 L Carbon Dioxide 15 L BUN Creatinine 2.6 H Glucose 475 H POC Glucose > 500 H Lactic Acid Calcium Phosphorus Magnesium Iron TIBC Transferrin Total Bilirubin Direct Bilirubin AST ALT Alkaline Phosphatase Lactate Dehydrogenase CK-MB (CK-2) Troponin T C-Reactive Protein Total Protein Albumin Triglycerides Cholesterol HDL Cholesterol Vitamin B12 Urine Creatinine Urine Total Protein Heparin-induced Plt Ab Hep Bs Antibody, Quant Crossmatch 12/20/16 12/20/16 12/20/16 11:21 16:01 22:33 WBC RBC Hgb Hct MCV MCHC RDW Plt Count Lymph % (Auto) [place] % (Auto) [place] # Seg Neutrophils % Seg Neuts % (Manual) Lymphocytes % (Manual) Monocytes % (Manual) Nucleated RBC % Seg Neutrophils # Seg Neutrophils # Man Lymphocytes # (Manual) Monocytes # (Manual) Percent Retic Haptoglobin PT INR Fibrinogen D-Dimer POC ABG pH POC ABG pCO2 POC ABG pO2 Sodium Potassium Chloride Carbon Dioxide BUN Creatinine Glucose POC Glucose > 500 H 446 H > 500 H Lactic Acid Calcium Phosphorus Magnesium Iron TIBC Transferrin Total Bilirubin Direct Bilirubin AST ALT Alkaline Phosphatase Lactate Dehydrogenase CK-MB (CK-2) Troponin T C-Reactive Protein Total Protein Albumin Triglycerides Cholesterol HDL Cholesterol Vitamin B12 Urine Creatinine Urine Total Protein Heparin-induced Plt Ab Hep Bs Antibody, Quant Crossmatch 12/20/16 12/20/16 12/21/16 22:37 23:00 00:48 WBC RBC Hgb Hct MCV MCHC RDW Plt Count Lymph % (Auto) [place] % (Auto) [place] # Seg Neutrophils % Seg Neuts % (Manual) Lymphocytes % (Manual) Monocytes % (Manual) Nucleated RBC % Seg Neutrophils # Seg Neutrophils # Man Lymphocytes # (Manual) Monocytes # (Manual) Percent Retic Haptoglobin PT INR Fibrinogen D-Dimer POC ABG pH POC ABG pCO2 POC ABG pO2 Sodium 128 L D Potassium Chloride 83.2 L Carbon Dioxide 11 L BUN 32 H Creatinine 3.5 H Glucose 822 H* POC Glucose > 500 H > 500 H Lactic Acid Calcium 8.2 L Phosphorus Magnesium Iron TIBC Transferrin Total Bilirubin Direct Bilirubin AST ALT Alkaline Phosphatase Lactate Dehydrogenase CK-MB (CK-2) Troponin T C-Reactive Protein Total Protein Albumin Triglycerides Cholesterol HDL Cholesterol Vitamin B12 Urine Creatinine Urine Total Protein Heparin-induced Plt Ab Hep Bs Antibody, Quant Crossmatch 12/21/16 12/21/16 12/21/16 03:17 05:00 05:00 WBC 15.7 H RBC 2.32 L Hgb 6.8 L Hct 20.6 L MCV MCHC RDW 16.3 H Plt Count Lymph % (Auto) 11.5 L [place] % (Auto) 7.4 H [place] # 1.2 H Seg Neutrophils % 78.7 H Seg Neuts % (Manual) Lymphocytes % (Manual) Monocytes % (Manual) Nucleated RBC % Seg Neutrophils # 12.4 H Seg Neutrophils # Man Lymphocytes # (Manual) Monocytes # (Manual) Percent Retic Haptoglobin PT INR Fibrinogen D-Dimer POC ABG pH POC ABG pCO2 POC ABG pO2 Sodium Potassium Chloride 95.3 L Carbon Dioxide 20 L D BUN 32 H Creatinine 3.7 H Glucose 243 H POC Glucose 428 H Lactic Acid Calcium 8.1 L Phosphorus Magnesium Iron TIBC 193.20 L Transferrin 138 L Total Bilirubin Direct Bilirubin AST ALT Alkaline Phosphatase Lactate Dehydrogenase CK-MB (CK-2) Troponin T C-Reactive Protein Total Protein Albumin Triglycerides Cholesterol HDL Cholesterol Vitamin B12 Urine Creatinine Urine Total Protein Heparin-induced Plt Ab Hep Bs Antibody, Quant Crossmatch 12/21/16 12/21/16 12/21/16 05:40 06:49 08:20 WBC RBC Hgb Hct MCV MCHC RDW Plt Count Lymph % (Auto) [place] % (Auto) [place] # Seg Neutrophils % Seg Neuts % (Manual) Lymphocytes % (Manual) Monocytes % (Manual) Nucleated RBC % Seg Neutrophils # Seg Neutrophils # Man Lymphocytes # (Manual) Monocytes # (Manual) Percent Retic Haptoglobin PT INR Fibrinogen D-Dimer POC ABG pH POC ABG pCO2 POC ABG pO2 Sodium Potassium Chloride Carbon Dioxide BUN Creatinine Glucose POC Glucose 271 H 236 H 222 H Lactic Acid Calcium Phosphorus Magnesium Iron TIBC Transferrin Total Bilirubin Direct Bilirubin AST ALT Alkaline Phosphatase Lactate Dehydrogenase CK-MB (CK-2) Troponin T C-Reactive Protein Total Protein Albumin Triglycerides Cholesterol HDL Cholesterol Vitamin B12 Urine Creatinine Urine Total Protein Heparin-induced Plt Ab Hep Bs Antibody, Quant Crossmatch 12/21/16 16:28 WBC RBC Hgb Hct MCV MCHC RDW Plt Count Lymph % (Auto) [place] % (Auto) [place] # Seg Neutrophils % Seg Neuts % (Manual) Lymphocytes % (Manual) Monocytes % (Manual) Nucleated RBC % Seg Neutrophils # Seg Neutrophils # Man Lymphocytes # (Manual) Monocytes # (Manual) Percent Retic Haptoglobin PT INR Fibrinogen D-Dimer POC ABG pH POC ABG pCO2 POC ABG pO2 Sodium Potassium Chloride Carbon Dioxide BUN Creatinine Glucose POC Glucose < 40 L Lactic Acid Calcium Phosphorus Magnesium Iron TIBC Transferrin Total Bilirubin Direct Bilirubin AST ALT Alkaline Phosphatase Lactate Dehydrogenase CK-MB (CK-2) Troponin T C-Reactive Protein Total Protein Albumin Triglycerides Cholesterol HDL Cholesterol Vitamin B12 Urine Creatinine Urine Total Protein Heparin-induced Plt Ab Hep Bs Antibody, Quant Crossmatch
[2016-12-22] MEDS: NOVOLOG SUB-Q SCH ×4 (03:49→23:09)
[2016-12-22 07:05] LABS: Basophils % (Auto) 0.9 % (0.0-1.8); Eosinophils % (Auto) 1.4 % (0.0-4.3); Hematocrit 20.5 % (30.3-42.9); Hemoglobin 6.6 gm/dl (10.1-14.3); Mean Corpuscular HGB Conc 32 % (30-34); Mean Corpuscular Hemoglobin 29 pg (28-32); Mean Corpuscular Volume 91 fl (79-97); Platelet Count 216 K/mm3 (140-440); Red Blood Count 2.26 M/mm3 (3.65-5.03); Red Cell Distribution Width 15.7 % (13.2-15.2); White Blood Count 17.4 K/mm3 (4.5-11.0)
[2016-12-22 07:39] LABS: BUN/Creatinine Ratio 5.6; Calcium 8.2 mg/dL (8.4-10.2); Chloride 95.5 mmol/L (98-107); Potassium 3.3 mmol/L (3.6-5.0)
--- NOTE | 2016-12-22 10:15 | Progress Note ---
Assessment and Plan Assessment and plan: Cardiac arrest with V. fib - Likely from hyperkalemia, currently patient is stable. Was treated with amiodarone - No recurrence Acute kidney injury secondary to ATN - Nephrology is following, she is going to continue hemodialysis. Will need outpatient hemodialysis arranged. Metabolic Acidosis, resolved. Acute hypoxic respiratory failure. Resolved. Now extubated DKA: - resolved - On sliding insulin Acute metabolic encephalopathy, resolved Leukocytosis +GNR in trach aspirate, pseudomonas aeruginosa - Completed PO levaquin - ID is following -DVT prophylaxis: SCDs only due to recent SAH Thrombocytopenia - Resolved Acute on chronic anemia of chronic disease - Hemoglobin is 6.6. Will transfuse 2 Units PRBC Depression - Psych consulted and recommend O/P mental health follow up. Disposition - Patient needs O/P dialysis set up. History Interval history: No chest pain, No SOB Hospitalist Physical - Physical exam Narrative exam: Gen Appearance: No acute distress, morbidly obese HEENT: normocephalic, atraumatic Neck: supple, no JVD Lungs: Clear to auscultation bilaterally, no wheeze. Heart: S1 and S2 regular, no murmurs or gallop Abdomen: Soft non-tender, non-distended, normal bowel sounds Extremity: No edema, clubbing or cyanosis Neuro : Awake, alert, moves all ext - Constitutional Vitals: Temp Pulse Resp BP Pulse Ox 98.6 F 106 H 20 113/66 100 12/22/16 08:36 12/22/16 08:36 12/22/16 08:36 12/22/16 08:36 12/22/16 08:36 General appearance: Present: no acute distress (resting comfortably) Results - Labs CBC & Chem 7: 12/23/16 06:42 12/23/16 06:42 Labs: Laboratory Last Values WBC 17.4 K/mm3 (4.5-11.0) H 12/22/16 06:45 RBC 2.26 M/mm3 (3.65-5.03) L 12/22/16 06:45 Hgb 6.6 gm/dl (10.1-14.3) L 12/22/16 06:45 Hct 20.5 % (30.3-42.9) L 12/22/16 06:45 MCV 91 fl (79-97) 12/22/16 06:45 MCH 29 pg (28-32) 12/22/16 06:45 MCHC 32 % (30-34) 12/22/16 06:45 RDW 15.7 % (13.2-15.2) H 12/22/16 06:45 Plt Count 216 K/mm3 (140-440) 12/22/16 06:45 Lymph % (Auto) 8.1 % (13.4-35.0) L 12/22/16 06:45 Benzie % (Auto) 5.3 % (0.0-7.3) 12/22/16 06:45 Eos % (Auto) 1.4 % (0.0-4.3) 12/22/16 06:45 Baso % (Auto) 0.9 % (0.0-1.8) 12/22/16 06:45 Lymph # 1.4 K/mm3 (1.2-5.4) 12/22/16 06:45 Benzie # 0.9 K/mm3 (0.0-0.8) H 12/22/16 06:45 Eos # 0.2 K/mm3 (0.0-0.4) 12/22/16 06:45 Baso # 0.2 K/mm3 (0.0-0.1) H 12/22/16 06:45 Add Manual Diff Complete 12/13/16 07:49 Total Counted 100 12/13/16 07:49 Seg Neutrophils % 84.3 % (40.0-70.0) H 12/22/16 06:45 Seg Neuts % (Manual) 89.0 % (40.0-70.0) H 12/13/16 07:49 Band Neutrophils % 1.0 % 12/13/16 07:49 Lymphocytes % (Manual) 7.0 % (13.4-35.0) L 12/13/16 07:49 Reactive Lymphs % (Man) 0 % 12/13/16 07:49 Monocytes % (Manual) 3.0 % (0.0-7.3) 12/13/16 07:49 Eosinophils % (Manual) 0 % (0.0-4.3) 12/13/16 07:49 Basophils % (Manual) 0 % (0.0-1.8) 12/13/16 07:49 Metamyelocytes % 0 % 12/13/16 07:49 Myelocytes % 0 % 12/13/16 07:49 Promyelocytes % 0 % 12/13/16 07:49 Blast Cells % 0 % 12/13/16 07:49 Nucleated RBC % Not Reportable 12/13/16 07:49 Seg Neutrophils # 14.6 K/mm3 (1.8-7.7) H 12/22/16 06:45 Seg Neutrophils # Man 21.4 K/mm3 (1.8-7.7) H 12/13/16 07:49 Band Neutrophils # 0.2 K/mm3 12/13/16 07:49 Lymphocytes # (Manual) 1.7 K/mm3 (1.2-5.4) 12/13/16 07:49 Abs React Lymphs (Man) 0.0 K/mm3 12/13/16 07:49 Monocytes # (Manual) 0.7 K/mm3 (0.0-0.8) 12/13/16 07:49 Eosinophils # (Manual) 0.0 K/mm3 (0.0-0.4) 12/13/16 07:49 Basophils # (Manual) 0.0 K/mm3 (0.0-0.1) 12/13/16 07:49 Metamyelocytes # 0.0 K/mm3 12/13/16 07:49 Myelocytes # 0.0 K/mm3 12/13/16 07:49 Promyelocytes # 0.0 K/mm3 12/13/16 07:49 Blast Cells # 0.0 K/mm3 12/13/16 07:49 WBC Morphology Not Reportable 12/13/16 07:49 Hypersegmented Neuts Not Reportable 12/13/16 07:49 Hyposegmented Neuts Not Reportable 12/13/16 07:49 Hypogranular Neuts Not Reportable 12/13/16 07:49 Smudge Cells Not Reportable 12/13/16 07:49 Toxic Granulation Not Reportable 12/13/16 07:49 Toxic Vacuolation Not Reportable 12/13/16 07:49 Dohle Bodies Not Reportable 12/13/16 07:49 Pelger-Huet Anomaly Not Reportable 12/13/16 07:49 Mary Rods Not Reportable 12/13/16 07:49 Platelet Estimate Cons 12/13/16 07:49 Clumped Platelets Not Reportable 12/13/16 07:49 Plt Clumps, EDTA Not Reportable 12/13/16 07:49 Large Platelets Rare 12/13/16 07:49 Giant Platelets Not Reportable 12/13/16 07:49 Platelet Satelliting Not Reportable 12/13/16 07:49 Plt Morphology Comment Not Reportable 12/13/16 07:49 RBC Morphology Not Reportable 12/13/16 07:49 Dimorphic RBCs Not Reportable 12/13/16 07:49 Polychromasia Not Reportable 12/13/16 07:49 Hypochromasia 1+ 12/13/16 07:49 Poikilocytosis Not Reportable 12/13/16 07:49 Anisocytosis 1+ 12/13/16 07:49 Microcytosis Not Reportable 12/13/16 07:49 Macrocytosis Not Reportable 12/13/16 07:49 Spherocytes Not Reportable 12/13/16 07:49 Pappenheimer Bodies Not Reportable 12/13/16 07:49 Sickle Cells Not Reportable 12/13/16 07:49 Target Cells Few 12/13/16 07:49 Tear Drop Cells Not Reportable 12/13/16 07:49 Ovalocytes Not Reportable 12/13/16 07:49 Helmet Cells Not Reportable 12/13/16 07:49 Landers-Bassfield Bodies Not Reportable 12/13/16 07:49 Hooks Rings Not Reportable 12/13/16 07:49 Jerri Cells Not Reportable 12/13/16 07:49 Bite Cells Not Reportable 12/13/16 07:49 Crenated Cell Not Reportable 12/13/16 07:49 Elliptocytes Not Reportable 12/13/16 07:49 Acanthocytes (Spur) Not Reportable 12/13/16 07:49 Rouleaux Not Reportable 12/13/16 07:49 Hemoglobin C Crystals Not Reportable 12/13/16 07:49 Schistocytes Not Reportable 12/13/16 07:49 Malaria parasites Not Reportable 12/13/16 07:49 Percent Retic 0.23 % (0.78-2.58) L 12/09/16 11:29 Michael Bodies Not Reportable 12/13/16 07:49 Haptoglobin 271 mg/dL (43-212) H 12/08/16 21:30 Hem Pathologist Commnt No 12/13/16 07:49 PT 15.3 Sec. (12.2-14.9) H 12/08/16 19:00 INR 1.22 (0.87-1.13) H 12/08/16 19:00 APTT 36.2 Sec. (24.2-36.6) 12/08/16 19:00 Fibrinogen 563 mg/dl (211-480) H 12/08/16 19:00 D-Dimer 5507.36 ng/mlDDU (0-234) H 12/08/16 19:00 Heparin Anti-Xa, Unfract Negative (Negative) 12/09/16 13:27 POC ABG pH 7.326 (7.35-7.45) L 12/09/16 12:02 POC ABG pCO2 37.7 (35-45) 12/09/16 12:02 POC ABG pO2 115 (80-105) H 12/09/16 12:02 POC ABG HCO3 19.7 12/09/16 12:02 POC ABG Total CO2 21 12/09/16 12:02 POC ABG O2 Sat 98 12/09/16 12:02 POC ABG Base Excess -6 12/09/16 12:02 FiO2 30 % 12/09/16 12:02 Sodium 138 mmol/L (137-145) 12/22/16 06:45 Potassium 3.3 mmol/L (3.6-5.0) L 12/22/16 06:45 Chloride 95.5 mmol/L (98-107) L 12/22/16 06:45 Carbon Dioxide 20 mmol/L (22-30) L 12/22/16 06:45 Anion Gap 26 mmol/L 12/22/16 06:45 BUN 14 mg/dL (7-17) 12/22/16 06:45 Creatinine 2.5 mg/dL (0.7-1.2) H 12/22/16 06:45 Estimated GFR 25 ml/min 12/22/16 06:45 BUN/Creatinine Ratio 5.60 % 12/22/16 06:45 Glucose 308 mg/dL (65-100) H 12/22/16 06:45 POC Glucose 430 (70-105) H 12/22/16 03:38 Lactic Acid 6.90 mmol/L (0.7-2.0) H* 12/07/16 07:30 Calcium 8.2 mg/dL (8.4-10.2) L 12/22/16 06:45 Phosphorus 3.70 mg/dL (2.5-4.5) 12/21/16 05:00 Magnesium 1.90 mg/dL (1.7-2.3) 12/11/16 04:30 Iron 66 ug/dL (37-170) 12/21/16 05:00 TIBC 193.20 mcg/dL (250-450) L 12/21/16 05:00 Transferrin 138 mg/dl (192-382) L 12/21/16 05:00 Ferritin 321.4 ng/mL (13.0-400.0) 12/21/16 05:00 Total Bilirubin 1.40 mg/dL (0.1-1.2) H 12/07/16 21:35 Direct Bilirubin 0.9 mg/dL (0-0.2) H 12/07/16 21:35 Indirect Bilirubin 0.5 mg/dL 12/07/16 21:35 AST 94 units/L (5-40) H 12/07/16 21:35 ALT 142 units/L (7-56) H 12/07/16 21:35 Alkaline Phosphatase 249 units/L (35-129) H 12/07/16 21:35 Lactate Dehydrogenase 382 units/L (91-180) H 12/08/16 19:00 Total Creatine Kinase 123 units/L (30-135) 12/04/16 09:55 CK-MB (CK-2) 4.6 ng/mL (0.0-4.0) H 12/04/16 09:55 CK-MB (CK-2) Rel Index 3.7 (0-4) 12/04/16 09:55 Troponin T 0.140 ng/mL (0.00-0.029) H* D 12/04/16 09:55 C-Reactive Protein 39.40 mg/dL (0.00-1.30) H 12/07/16 06:00 Total Protein 4.6 g/dL (6.3-8.2) L D 12/07/16 21:35 Albumin 2.1 g/dL (3.9-5) L 12/07/16 21:35 Albumin/Globulin Ratio 0.8 % 12/07/16 21:35 Triglycerides 570 mg/dL (2-149) H 12/04/16 07:55 Cholesterol 221 mg/dL (50-199) H 12/04/16 07:55 LDL Cholesterol Direct TNR 12/04/16 07:55 HDL Cholesterol 37 mg/dL (40-59) L 12/04/16 07:55 Cholesterol/HDL Ratio 5.97 % 12/04/16 07:55 Vitamin B12 > 2000 pg/mL (211-911) H 12/09/16 13:27 Folate 8.10 ng/mL (7.3-26.0) 12/09/16 13:27 TSH 1.600 mlU/mL (0.270-4.200) 12/03/16 23:20 Urine Color Yellow (Yellow) 12/04/16 11:25 Urine Turbidity Slightly-cloudy (Clear) 12/04/16 11:25 Urine pH 5.0 (5.0-7.0) 12/04/16 11:25 Ur Specific [place] 1.018 (1.003-1.030) 12/04/16 11:25 Urine Protein 30 mg/dl mg/dL (Negative) 12/04/16 11:25 Urine Glucose (UA) >=500 mg/dL (Negative) 12/04/16 11:25 Urine Ketones Tr mg/dL (Negative) 12/04/16 11:25 Urine Blood Sm (Negative) 12/04/16 11:25 Urine Nitrite Neg (Negative) 12/04/16 11:25 Urine Bilirubin Neg (Negative) 12/04/16 11:25 Urine Urobilinogen < 2.0 mg/dL (<2.0) 12/04/16 11:25 Ur Leukocyte Esterase Neg (Negative) 12/04/16 11:25 Urine WBC (Auto) 4.0 /HPF (0.0-6.0) 12/04/16 11:25 Urine RBC (Auto) 2.0 /HPF (0.0-6.0) 12/04/16 11:25 U Epithel Cells (Auto) < 1.0 /HPF (0-13.0) 12/04/16 11:25 Urine Mucus Few /HPF 12/04/16 11:25 Urine Osmolality 419 Mosm/kg 12/04/16 11:25 Urine Creatinine 29.5 mg/dL (0.1-20.0) H 12/04/16 11:25 Protein/Creatinin Ratio 1.12 12/04/16 11:25 Urine Sodium 26 mEq/L 12/04/16 11:25 Urine Total Protein 33 mg/dL (5-11.8) H 12/04/16 11:25 Urine Opiates Screen Presumptive negative 12/04/16 11:25 Urine Methadone Screen Presumptive negative 12/04/16 11:25 Ur Barbiturates Screen Presumptive negative 12/04/16 11:25 Ur Phencyclidine Scrn Presumptive negative 12/04/16 11:25 Ur Amphetamines Screen Presumptive negative 12/04/16 11:25 U Benzodiazepines Scrn Presumptive negative 12/04/16 11:25 Urine Cocaine Screen Presumptive negative 12/04/16 11:25 U Marijuana (THC) Screen Presumptive positive 12/04/16 11:25 Drugs of Abuse Note Disclamer 12/04/16 11:25 Heparin-induced Plt Ab Weak positive (Negative) H 12/09/16 13:27 UF Heparin High Dose 0 % Release 12/09/16 13:27 ADRIENNE UFH Low Dose 0.1 0 % Release 12/09/16 13:27 ADRIENNE UFH Low Dose 0.5 0 % Release 12/09/16 13:27 Hep Bs Antigen Non-reactive (Negative) 12/09/16 13:27 Hep Bs Antibody, Quant <5 mIU/mL (>=10) L 12/09/16 13:27 Hep B Core Total Ab Nonreactive (Nonreactive) 12/09/16 13:27 Hepatitis C Antibody Non-reactive (NonReactive) 12/09/16 13:27 HIV 1&2 Antibody Rapid Non react (Non React) 12/09/16 13:27 HIV P24 Antigen Non react (Non React) 12/09/16 13:27 Schistocytes Smear None seen 12/09/16 11:29 Blood Type O POSITIVE 12/08/16 08:46 Antibody Screen TNR 12/08/16 08:46 ISAIAH Antibody Screen Negative 12/08/16 08:46 Crossmatch See Detail 12/08/16 08:46
[2016-12-22] MEDS ORDERED: NACL 0.9% 500 ML 500 ML IV NR (10:30)
[2016-12-22] MEDS: LOVENOX SUB-Q SCH (12:43)
[2016-12-22] MEDS: LOPRESSOR PO SCH ×2 (12:43→21:16)
[2016-12-22] MEDS: PEPCID PO SCH (12:43)
--- NOTE | 2016-12-22 16:05 | Progress Note ---
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: D Qualified Code(s): E10.10 - Type 1 diabetes mellitus with ketoacidosis without coma Plan to address problem: Status post insulin drip, on sliding scale insulin, as per primary team (2) ESRD (end stage renal disease) on dialysis Current Visit: Yes Status: Acute Plan to address problem: no indication for HD today Assess need for HD on daily basis Epogen dosing during HD for anemia management Obtain occult stool, repeat iron studies in the morning Renally dose medications Obtain daily weight Strict intake and output (3) Hypertensive nephrosclerosis, stage 5 chronic kidney disease or end stage renal disease Current Visit: Yes Status: Acute Plan to address problem: Continue on current anti-hypertensive regimen for now (4) Anemia Current Visit: Yes Status: Acute Qualifiers: Anemia type: A Iron deficiency anemia type: I Vitamin B12 deficiency anemia type: V Folate deficiency anemia type: F Bone marrow failure anemia type: B Hemolytic anemia type: H Other causes of anemia: O Chronic kidney disease stage: C Plan to address problem: Epogen dosing during HD for anemia management Subjective Date of service: 12/22/16 Principal diagnosis: Sepsis; Pneumonia; ASHELY on dialysis; Diabetes Interval history: tolerated HD yesterday Objective - Vital Signs Vital signs: Vital Signs - 12hr 12/22/16 12/22/16 12/22/16 05:02 07:00 08:36 Temperature 99.0 F 98.6 F Pulse Rate 87 Pulse Rate [ 106 H 106 H Right Radial] Respiratory 18 20 Rate Blood Pressure 126/84 113/66 [Right Arm] O2 Sat by Pulse 100 100 Oximetry 12/22/16 12:45 Temperature 98.8 F Pulse Rate Pulse Rate [ 106 H Right Radial] Respiratory 18 Rate Blood Pressure 124/67 [Right Arm] O2 Sat by Pulse 100 Oximetry - General Appearance General appearance: well-developed, well-nourished EENT: ATNC, PERRL, mucous membranes moist Neck: no JVD, no carotid bruit Respiratory: Present: Clear to Ascultation Cardiology: regular, S1S2 Gastrointestinal: normoactive bowel sounds Integumentary: no rash, warm and dry Neurologic: no focal deficit, no asterixis Musculoskeletal: other (no edema in BLE) Psychiatric: mood/affect appropriate, cooperative - Lab 12/22/16 06:45 12/22/16 06:45 Most recent lab results Calcium 8.2 mg/dL (8.4-10.2) L 12/22/16 06:45 Phosphorus 3.70 mg/dL (2.5-4.5) 12/21/16 05:00 Magnesium 1.90 mg/dL (1.7-2.3) 12/11/16 04:30 Urine Creatinine 29.5 mg/dL (0.1-20.0) H 12/04/16 11:25 Urine Sodium 26 mEq/L 12/04/16 11:25 Urine Total Protein 33 mg/dL (5-11.8) H 12/04/16 11:25
[2016-12-22] MEDS: PERCOCET 5/325 PO PRN (17:33)
--- NOTE | 2016-12-22 19:29 | Progress Note ---
Assessment and Plan Patient alert, awake, weak. No acute respiratory distress. No complaint of chest pain or shortness of breath. O2 saturation 100% on 3 litres O2..Ventilation perfusion scan reported low probability for pulmonary emboli.Patients chest xray reported improving right upper lobe infiltrate.Repeating chest xray. 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 Patient alert, awake. Clinicaly appears improving. Management as per primary care. (2) Metabolic encephalopathy Current Visit: Yes Status: Acute Plan to address problem: Patient alert, awake, following commands. Appears encephalopathy improving. Management as per primary care. (3) Pulmonary infiltrate in right lung on chest x-ray Current Visit: Yes Status: Acute Plan to address problem: Starting on I/V Levaquine. Patient afebrile. Still has leukocytosis. last chest xray reported improving right upper lobe infiltrate. Repeating chest xray. Subjective Date of service: 12/22/16 Principal diagnosis: Sepsis; Pneumonia; ASHELY on dialysis; Diabetes Interval history: Patient alert, awake, weak. No acute respiratory distress. No complaint of chest pain or shortness of breath. O2 saturation 100% on 3 litres O2..Ventilation perfusion scan reported low probability for pulmonary emboli.Patients chest xray reported improving right upper lobe infiltrate.Repeating chest xray. Objective Vital Signs - 12hr 12/22/16 12/22/16 12/22/16 08:36 12:45 18:46 Temperature 98.6 F 98.8 F 99.1 F Pulse Rate [ 106 H 106 H 118 H Right Radial] Respiratory 20 18 18 Rate Blood Pressure 113/66 124/67 119/67 [Right Arm] O2 Sat by Pulse 100 100 99 Oximetry Constitutional: no acute distress, alert Eyes: non-icteric ENT: oropharynx moist Neck: supple, no lymphadenopathy Effort: normal Ascultation: Right: rhonchi, Bilateral: diminished breath sounds, rales (R>L lungs) Cardiovascular: regular rate and rhythm Gastrointestinal: normoactive bowel sounds, soft, non-tender, non-distended Integumentary: normal Extremities: no cyanosis, no edema, pulses normal, no ischemia or petechiae Neurologic: normal mental status, non-focal exam, pupils equal and round, motor strength normal and Psychiatric: mood appropriate, affect normal CBC and BMP: 12/22/16 06:45 12/22/16 06:45 ABG, PT/INR, D-dimer: ABG POC ABG pH 7.326 (7.35-7.45) L 12/09/16 12:02 POC ABG pCO2 37.7 (35-45) 12/09/16 12:02 POC ABG pO2 115 (80-105) H 12/09/16 12:02 POC ABG HCO3 19.7 12/09/16 12:02 POC ABG Total CO2 21 12/09/16 12:02 POC ABG O2 Sat 98 12/09/16 12:02 PT/INR, D-dimer PT 15.3 Sec. (12.2-14.9) H 12/08/16 19:00 INR 1.22 (0.87-1.13) H 12/08/16 19:00 D-Dimer 5507.36 ng/mlDDU (0-234) H 12/08/16 19:00 Abnormal lab findings: Abnormal Labs 12/04/16 12/04/16 12/04/16 01:19 01:36 02:21 WBC RBC Hgb Hct MCV MCHC RDW Plt Count Lymph % (Auto) [place] % (Auto) [place] # Baso # Seg Neutrophils % Seg Neuts % (Manual) Lymphocytes % (Manual) Monocytes % (Manual) Nucleated RBC % Seg Neutrophils # Seg Neutrophils # Man Lymphocytes # (Manual) Monocytes # (Manual) Percent Retic Haptoglobin PT INR Fibrinogen D-Dimer POC ABG pH 6.759 L POC ABG pCO2 POC ABG pO2 437 H Sodium Potassium Chloride Carbon Dioxide BUN Creatinine Glucose POC Glucose > 500 H Lactic Acid Calcium Phosphorus 15.70 H Magnesium 4.30 H Iron TIBC Transferrin Total Bilirubin Direct Bilirubin AST ALT Alkaline Phosphatase Lactate Dehydrogenase CK-MB (CK-2) Troponin T C-Reactive Protein Total Protein Albumin Triglycerides Cholesterol HDL Cholesterol Vitamin B12 Urine Creatinine Urine Total Protein Heparin-induced Plt Ab Hep Bs Antibody, Quant Crossmatch 12/04/16 12/04/16 12/04/16 03:55 04:00 05:11 WBC RBC Hgb Hct MCV MCHC RDW Plt Count Lymph % (Auto) [place] % (Auto) [place] # Baso # Seg Neutrophils % Seg Neuts % (Manual) Lymphocytes % (Manual) Monocytes % (Manual) Nucleated RBC % Seg Neutrophils # Seg Neutrophils # Man Lymphocytes # (Manual) Monocytes # (Manual) Percent Retic Haptoglobin PT INR Fibrinogen D-Dimer POC ABG pH POC ABG pCO2 POC ABG pO2 Sodium Potassium Chloride 91.4 L Carbon Dioxide 8 L* BUN 55 H Creatinine 2.8 H Glucose 1610 H* POC Glucose > 500 H > 500 H Lactic Acid Calcium Phosphorus Magnesium Iron TIBC Transferrin Total Bilirubin Direct Bilirubin AST ALT Alkaline Phosphatase Lactate Dehydrogenase CK-MB (CK-2) Troponin T C-Reactive Protein Total Protein Albumin Triglycerides Cholesterol HDL Cholesterol Vitamin B12 Urine Creatinine Urine Total Protein Heparin-induced Plt Ab Hep Bs Antibody, Quant Crossmatch 12/04/16 12/04/16 12/04/16 05:40 05:54 06:58 WBC RBC Hgb Hct MCV MCHC RDW Plt Count Lymph % (Auto) [place] % (Auto) [place] # Baso # Seg Neutrophils % Seg Neuts % (Manual) Lymphocytes % (Manual) Monocytes % (Manual) Nucleated RBC % Seg Neutrophils # Seg Neutrophils # Man Lymphocytes # (Manual) Monocytes # (Manual) Percent Retic Haptoglobin PT INR Fibrinogen D-Dimer POC ABG pH 7.154 L POC ABG pCO2 27.5 L POC ABG pO2 111 H Sodium Potassium Chloride Carbon Dioxide BUN Creatinine Glucose POC Glucose > 500 H > 500 H Lactic Acid Calcium Phosphorus Magnesium Iron TIBC Transferrin Total Bilirubin Direct Bilirubin AST ALT Alkaline Phosphatase Lactate Dehydrogenase CK-MB (CK-2) Troponin T C-Reactive Protein Total Protein Albumin Triglycerides Cholesterol HDL Cholesterol Vitamin B12 Urine Creatinine Urine Total Protein Heparin-induced Plt Ab Hep Bs Antibody, Quant Crossmatch 12/04/16 12/04/16 12/04/16 07:49 07:55 07:55 WBC RBC Hgb Hct MCV MCHC RDW Plt Count Lymph % (Auto) [place] % (Auto) [place] # Baso # Seg Neutrophils % Seg Neuts % (Manual) Lymphocytes % (Manual) Monocytes % (Manual) Nucleated RBC % Seg Neutrophils # Seg Neutrophils # Man Lymphocytes # (Manual) Monocytes # (Manual) Percent Retic Haptoglobin PT INR Fibrinogen D-Dimer POC ABG pH POC ABG pCO2 POC ABG pO2 Sodium Potassium 3.3 L Chloride Carbon Dioxide 9 L* BUN 53 H Creatinine 2.9 H Glucose 1229 H* POC Glucose > 500 H Lactic Acid Calcium Phosphorus Magnesium Iron TIBC Transferrin Total Bilirubin Direct Bilirubin AST ALT Alkaline Phosphatase Lactate Dehydrogenase CK-MB (CK-2) Troponin T 0.111 H* D C-Reactive Protein Total Protein Albumin Triglycerides 570 H Cholesterol 221 H HDL Cholesterol 37 L Vitamin B12 Urine Creatinine Urine Total Protein Heparin-induced Plt Ab Hep Bs Antibody, Quant Crossmatch 12/04/16 12/04/16 12/04/16 07:55 09:55 09:55 WBC RBC 2.90 L Hgb 8.5 L Hct 30.2 L D MCV 105 H D MCHC 28 L RDW 19.2 H Plt Count Lymph % (Auto) [place] % (Auto) [place] # Baso # Seg Neutrophils % Seg Neuts % (Manual) Lymphocytes % (Manual) 11.0 L Monocytes % (Manual) Nucleated RBC % Seg Neutrophils # Seg Neutrophils # Man Lymphocytes # (Manual) 0.6 L Monocytes # (Manual) Percent Retic Haptoglobin PT INR Fibrinogen D-Dimer POC ABG pH POC ABG pCO2 POC ABG pO2 Sodium Potassium 3.1 L Chloride Carbon Dioxide 7 L* BUN 51 H Creatinine 3.2 H Glucose 969 H* POC Glucose Lactic Acid Calcium 10.4 H D Phosphorus Magnesium Iron TIBC Transferrin Total Bilirubin Direct Bilirubin AST ALT Alkaline Phosphatase Lactate Dehydrogenase CK-MB (CK-2) 4.6 H Troponin T 0.140 H* D C-Reactive Protein Total Protein Albumin Triglycerides Cholesterol HDL Cholesterol Vitamin B12 Urine Creatinine Urine Total Protein Heparin-induced Plt Ab Hep Bs Antibody, Quant Crossmatch 12/04/16 12/04/16 12/04/16 09:55 10:37 11:25 WBC RBC Hgb Hct MCV MCHC RDW Plt Count Lymph % (Auto) [place] % (Auto) [place] # Baso # Seg Neutrophils % Seg Neuts % (Manual) Lymphocytes % (Manual) Monocytes % (Manual) Nucleated RBC % Seg Neutrophils # Seg Neutrophils # Man Lymphocytes # (Manual) Monocytes # (Manual) Percent Retic Haptoglobin PT INR Fibrinogen D-Dimer POC ABG pH 7.215 L POC ABG pCO2 18.8 L POC ABG pO2 193 H Sodium Potassium Chloride Carbon Dioxide BUN Creatinine Glucose POC Glucose Lactic Acid Calcium Phosphorus Magnesium 3.70 H Iron TIBC Transferrin Total Bilirubin Direct Bilirubin AST ALT Alkaline Phosphatase Lactate Dehydrogenase CK-MB (CK-2) Troponin T C-Reactive Protein Total Protein Albumin Triglycerides Cholesterol HDL Cholesterol Vitamin B12 Urine Creatinine 29.5 H Urine Total Protein 33 H Heparin-induced Plt Ab Hep Bs Antibody, Quant Crossmatch 12/04/16 12/04/16 12/04/16 12:00 12:48 13:00 WBC RBC Hgb Hct MCV MCHC RDW Plt Count Lymph % (Auto) [place] % (Auto) [place] # Baso # Seg Neutrophils % Seg Neuts % (Manual) Lymphocytes % (Manual) Monocytes % (Manual) Nucleated RBC % Seg Neutrophils # Seg Neutrophils # Man Lymphocytes # (Manual) Monocytes # (Manual) Percent Retic Haptoglobin PT INR Fibrinogen D-Dimer POC ABG pH POC ABG pCO2 POC ABG pO2 Sodium 149 H 150 H Potassium 3.2 L 3.2 L Chloride 109.1 H Carbon Dioxide 8 L* 8 L* BUN 52 H 49 H Creatinine 3.4 H 3.1 H Glucose 723 H* 574 H* POC Glucose Lactic Acid 18.80 H* Calcium Phosphorus Magnesium Iron TIBC Transferrin Total Bilirubin Direct Bilirubin AST ALT Alkaline Phosphatase Lactate Dehydrogenase CK-MB (CK-2) Troponin T C-Reactive Protein Total Protein Albumin Triglycerides Cholesterol HDL Cholesterol Vitamin B12 Urine Creatinine Urine Total Protein Heparin-induced Plt Ab Hep Bs Antibody, Quant Crossmatch 12/04/16 12/04/16 12/04/16 13:01 14:41 16:06 WBC RBC Hgb Hct MCV MCHC RDW Plt Count Lymph % (Auto) [place] % (Auto) [place] # Baso # Seg Neutrophils % Seg Neuts % (Manual) Lymphocytes % (Manual) Monocytes % (Manual) Nucleated RBC % Seg Neutrophils # Seg Neutrophils # Man Lymphocytes # (Manual) Monocytes # (Manual) Percent Retic Haptoglobin PT INR Fibrinogen D-Dimer POC ABG pH POC ABG pCO2 POC ABG pO2 Sodium 151 H Potassium 3.2 L Chloride 108.1 H Carbon Dioxide 10 L BUN 49 H Creatinine 3.0 H Glucose 383 H POC Glucose 292 H Lactic Acid Calcium Phosphorus Magnesium Iron TIBC Transferrin Total Bilirubin Direct Bilirubin AST ALT Alkaline Phosphatase Lactate Dehydrogenase CK-MB (CK-2) Troponin T C-Reactive Protein 3.50 H Total Protein Albumin Triglycerides Cholesterol HDL Cholesterol Vitamin B12 Urine Creatinine Urine Total Protein Heparin-induced Plt Ab Hep Bs Antibody, Quant Crossmatch 12/04/16 12/04/16 12/04/16 17:15 17:25 18:07 WBC RBC Hgb Hct MCV MCHC RDW Plt Count Lymph % (Auto) [place] % (Auto) [place] # Baso # Seg Neutrophils % Seg Neuts % (Manual) Lymphocytes % (Manual) Monocytes % (Manual) Nucleated RBC % Seg Neutrophils # Seg Neutrophils # Man Lymphocytes # (Manual) Monocytes # (Manual) Percent Retic Haptoglobin PT INR Fibrinogen D-Dimer POC ABG pH 7.255 L POC ABG pCO2 16.9 L POC ABG pO2 169 H Sodium Potassium Chloride Carbon Dioxide BUN Creatinine Glucose POC Glucose 246 H Lactic Acid 18.50 H* Calcium Phosphorus Magnesium Iron TIBC Transferrin Total Bilirubin Direct Bilirubin AST ALT Alkaline Phosphatase Lactate Dehydrogenase CK-MB (CK-2) Troponin T C-Reactive Protein Total Protein Albumin Triglycerides Cholesterol HDL Cholesterol Vitamin B12 Urine Creatinine Urine Total Protein Heparin-induced Plt Ab Hep Bs Antibody, Quant Crossmatch 12/04/16 12/04/16 12/04/16 19:34 20:31 21:15 WBC RBC Hgb Hct MCV MCHC RDW Plt Count Lymph % (Auto) [place] % (Auto) [place] # Baso # Seg Neutrophils % Seg Neuts % (Manual) Lymphocytes % (Manual) Monocytes % (Manual) Nucleated RBC % Seg Neutrophils # Seg Neutrophils # Man Lymphocytes # (Manual) Monocytes # (Manual) Percent Retic Haptoglobin PT INR Fibrinogen D-Dimer POC ABG pH POC ABG pCO2 POC ABG pO2 Sodium Potassium Chloride Carbon Dioxide BUN Creatinine Glucose POC Glucose 189 H 126 H 139 H Lactic Acid Calcium Phosphorus Magnesium Iron TIBC Transferrin Total Bilirubin Direct Bilirubin AST ALT Alkaline Phosphatase Lactate Dehydrogenase CK-MB (CK-2) Troponin T C-Reactive Protein Total Protein Albumin Triglycerides Cholesterol HDL Cholesterol Vitamin B12 Urine Creatinine Urine Total Protein Heparin-induced Plt Ab Hep Bs Antibody, Quant Crossmatch 12/04/16 12/04/16 12/04/16 21:25 22:37 23:35 WBC RBC Hgb Hct MCV MCHC RDW Plt Count Lymph % (Auto) [place] % (Auto) [place] # Baso # Seg Neutrophils % Seg Neuts % (Manual) Lymphocytes % (Manual) Monocytes % (Manual) Nucleated RBC % Seg Neutrophils # Seg Neutrophils # Man Lymphocytes # (Manual) Monocytes # (Manual) Percent Retic Haptoglobin PT INR Fibrinogen D-Dimer POC ABG pH 7.294 L POC ABG pCO2 16.7 L POC ABG pO2 169 H Sodium Potassium Chloride Carbon Dioxide BUN Creatinine Glucose POC Glucose 131 H 106 H Lactic Acid Calcium Phosphorus Magnesium Iron TIBC Transferrin Total Bilirubin Direct Bilirubin AST ALT Alkaline Phosphatase Lactate Dehydrogenase CK-MB (CK-2) Troponin T C-Reactive Protein Total Protein Albumin Triglycerides Cholesterol HDL Cholesterol Vitamin B12 Urine Creatinine Urine Total Protein Heparin-induced Plt Ab Hep Bs Antibody, Quant Crossmatch 12/05/16 12/05/16 12/05/16 02:40 02:50 02:50 WBC RBC Hgb Hct MCV MCHC RDW Plt Count Lymph % (Auto) [place] % (Auto) [place] # Baso # Seg Neutrophils % Seg Neuts % (Manual) Lymphocytes % (Manual) Monocytes % (Manual) Nucleated RBC % Seg Neutrophils # Seg Neutrophils # Man Lymphocytes # (Manual) Monocytes # (Manual) Percent Retic Haptoglobin PT INR Fibrinogen D-Dimer POC ABG pH POC ABG pCO2 POC ABG pO2 Sodium 151 H Potassium Chloride 113.8 H Carbon Dioxide 12 L BUN 46 H Creatinine 3.2 H Glucose 165 H POC Glucose 109 H Lactic Acid 9.80 H* Calcium 8.3 L Phosphorus Magnesium Iron TIBC Transferrin Total Bilirubin Direct Bilirubin AST ALT Alkaline Phosphatase Lactate Dehydrogenase CK-MB (CK-2) Troponin T C-Reactive Protein Total Protein Albumin Triglycerides Cholesterol HDL Cholesterol Vitamin B12 Urine Creatinine Urine Total Protein Heparin-induced Plt Ab Hep Bs Antibody, Quant Crossmatch 12/05/16 12/05/16 12/05/16 04:01 04:30 04:30 WBC 19.1 H RBC 2.91 L Hgb 8.0 L Hct 25.4 L MCV MCHC RDW 17.8 H Plt Count Lymph % (Auto) [place] % (Auto) [place] # Baso # Seg Neutrophils % Seg Neuts % (Manual) 17.0 L Lymphocytes % (Manual) 7.0 L Monocytes % (Manual) Nucleated RBC % 3.0 H Seg Neutrophils # Seg Neutrophils # Man Lymphocytes # (Manual) Monocytes # (Manual) Percent Retic Haptoglobin PT INR Fibrinogen D-Dimer POC ABG pH POC ABG pCO2 POC ABG pO2 Sodium 152 H Potassium Chloride 113.5 H Carbon Dioxide 12 L BUN 47 H Creatinine 3.2 H Glucose 133 H POC Glucose 179 H Lactic Acid Calcium 8.3 L Phosphorus 1.00 L D Magnesium Iron TIBC Transferrin Total Bilirubin Direct Bilirubin AST ALT Alkaline Phosphatase Lactate Dehydrogenase CK-MB (CK-2) Troponin T C-Reactive Protein Total Protein Albumin Triglycerides Cholesterol HDL Cholesterol Vitamin B12 Urine Creatinine Urine Total Protein Heparin-induced Plt Ab Hep Bs Antibody, Quant Crossmatch 12/05/16 12/05/16 12/05/16 05:32 08:01 08:48 WBC RBC Hgb Hct MCV MCHC RDW Plt Count Lymph % (Auto) [place] % (Auto) [place] # Baso # Seg Neutrophils % Seg Neuts % (Manual) Lymphocytes % (Manual) Monocytes % (Manual) Nucleated RBC % Seg Neutrophils # Seg Neutrophils # Man Lymphocytes # (Manual) Monocytes # (Manual) Percent Retic Haptoglobin PT INR Fibrinogen D-Dimer POC ABG pH POC ABG pCO2 17.6 L POC ABG pO2 62 L Sodium Potassium Chloride Carbon Dioxide BUN Creatinine Glucose POC Glucose 126 H 130 H Lactic Acid Calcium Phosphorus Magnesium Iron TIBC Transferrin Total Bilirubin Direct Bilirubin AST ALT Alkaline Phosphatase Lactate Dehydrogenase CK-MB (CK-2) Troponin T C-Reactive Protein Total Protein Albumin Triglycerides Cholesterol HDL Cholesterol Vitamin B12 Urine Creatinine Urine Total Protein Heparin-induced Plt Ab Hep Bs Antibody, Quant Crossmatch 12/05/16 12/05/16 12/05/16 08:54 12:01 15:15 WBC RBC Hgb Hct MCV MCHC RDW Plt Count Lymph % (Auto) [place] % (Auto) [place] # Baso # Seg Neutrophils % Seg Neuts % (Manual) Lymphocytes % (Manual) Monocytes % (Manual) Nucleated RBC % Seg Neutrophils # Seg Neutrophils # Man Lymphocytes # (Manual) Monocytes # (Manual) Percent Retic Haptoglobin PT INR Fibrinogen D-Dimer POC ABG pH POC ABG pCO2 POC ABG pO2 Sodium Potassium Chloride Carbon Dioxide BUN Creatinine Glucose POC Glucose 157 H 117 H 166 H Lactic Acid Calcium Phosphorus Magnesium Iron TIBC Transferrin Total Bilirubin Direct Bilirubin AST ALT Alkaline Phosphatase Lactate Dehydrogenase CK-MB (CK-2) Troponin T C-Reactive Protein Total Protein Albumin Triglycerides Cholesterol HDL Cholesterol Vitamin B12 Urine Creatinine Urine Total Protein Heparin-induced Plt Ab Hep Bs Antibody, Quant Crossmatch 12/05/16 12/05/16 12/05/16 16:10 16:55 17:08 WBC RBC Hgb Hct MCV MCHC RDW Plt Count Lymph % (Auto) [place] % (Auto) [place] # Baso # Seg Neutrophils % Seg Neuts % (Manual) Lymphocytes % (Manual) Monocytes % (Manual) Nucleated RBC % Seg Neutrophils # Seg Neutrophils # Man Lymphocytes # (Manual) Monocytes # (Manual) Percent Retic Haptoglobin PT INR Fibrinogen D-Dimer POC ABG pH POC ABG pCO2 POC ABG pO2 Sodium Potassium Chloride Carbon Dioxide BUN Creatinine Glucose POC Glucose 178 H 169 H Lactic Acid Calcium Phosphorus 5.00 H D Magnesium Iron TIBC Transferrin Total Bilirubin Direct Bilirubin AST ALT Alkaline Phosphatase Lactate Dehydrogenase CK-MB (CK-2) Troponin T C-Reactive Protein Total Protein Albumin Triglycerides Cholesterol HDL Cholesterol Vitamin B12 Urine Creatinine Urine Total Protein Heparin-induced Plt Ab Hep Bs Antibody, Quant Crossmatch 12/05/16 12/05/16 12/05/16 18:08 18:51 20:04 WBC RBC Hgb Hct MCV MCHC RDW Plt Count Lymph % (Auto) [place] % (Auto) [place] # Baso # Seg Neutrophils % Seg Neuts % (Manual) Lymphocytes % (Manual) Monocytes % (Manual) Nucleated RBC % Seg Neutrophils # Seg Neutrophils # Man Lymphocytes # (Manual) Monocytes # (Manual) Percent Retic Haptoglobin PT INR Fibrinogen D-Dimer POC ABG pH POC ABG pCO2 POC ABG pO2 Sodium Potassium Chloride Carbon Dioxide BUN Creatinine Glucose POC Glucose 147 H 113 H 64 L Lactic Acid Calcium Phosphorus Magnesium Iron TIBC Transferrin Total Bilirubin Direct Bilirubin AST ALT Alkaline Phosphatase Lactate Dehydrogenase CK-MB (CK-2) Troponin T C-Reactive Protein Total Protein Albumin Triglycerides Cholesterol HDL Cholesterol Vitamin B12 Urine Creatinine Urine Total Protein Heparin-induced Plt Ab Hep Bs Antibody, Quant Crossmatch 12/05/16 12/05/16 12/05/16 21:34 22:08 23:19 WBC RBC Hgb Hct MCV MCHC RDW Plt Count Lymph % (Auto) [place] % (Auto) [place] # Baso # Seg Neutrophils % Seg Neuts % (Manual) Lymphocytes % (Manual) Monocytes % (Manual) Nucleated RBC % Seg Neutrophils # Seg Neutrophils # Man Lymphocytes # (Manual) Monocytes # (Manual) Percent Retic Haptoglobin PT INR Fibrinogen D-Dimer POC ABG pH 7.303 L POC ABG pCO2 18.3 L POC ABG pO2 73 L Sodium Potassium Chloride Carbon Dioxide BUN Creatinine Glucose POC Glucose 141 H 200 H Lactic Acid Calcium Phosphorus Magnesium Iron TIBC Transferrin Total Bilirubin Direct Bilirubin AST ALT Alkaline Phosphatase Lactate Dehydrogenase CK-MB (CK-2) Troponin T C-Reactive Protein Total Protein Albumin Triglycerides Cholesterol HDL Cholesterol Vitamin B12 Urine Creatinine Urine Total Protein Heparin-induced Plt Ab Hep Bs Antibody, Quant Crossmatch 12/06/16 12/06/16 12/06/16 00:01 01:09 02:00 WBC RBC Hgb Hct MCV MCHC RDW Plt Count Lymph % (Auto) [place] % (Auto) [place] # Baso # Seg Neutrophils % Seg Neuts % (Manual) Lymphocytes % (Manual) Monocytes % (Manual) Nucleated RBC % Seg Neutrophils # Seg Neutrophils # Man Lymphocytes # (Manual) Monocytes # (Manual) Percent Retic Haptoglobin PT INR Fibrinogen D-Dimer POC ABG pH POC ABG pCO2 POC ABG pO2 Sodium Potassium Chloride Carbon Dioxide BUN Creatinine Glucose POC Glucose 211 H 116 H 57 L Lactic Acid Calcium Phosphorus Magnesium Iron TIBC Transferrin Total Bilirubin Direct Bilirubin AST ALT Alkaline Phosphatase Lactate Dehydrogenase CK-MB (CK-2) Troponin T C-Reactive Protein Total Protein Albumin Triglycerides Cholesterol HDL Cholesterol Vitamin B12 Urine Creatinine Urine Total Protein Heparin-induced Plt Ab Hep Bs Antibody, Quant Crossmatch 12/06/16 12/06/16 12/06/16 04:14 04:50 04:50 WBC RBC 2.68 L Hgb 7.6 L Hct 23.2 L MCV MCHC RDW 18.9 H Plt Count Lymph % (Auto) [place] % (Auto) [place] # Baso # Seg Neutrophils % Seg Neuts % (Manual) 32.0 L Lymphocytes % (Manual) Monocytes % (Manual) Nucleated RBC % 3.0 H Seg Neutrophils # Seg Neutrophils # Man Lymphocytes # (Manual) 0.9 L Monocytes # (Manual) Percent Retic Haptoglobin PT INR Fibrinogen D-Dimer POC ABG pH POC ABG pCO2 POC ABG pO2 Sodium Potassium 5.8 H D Chloride 111.5 H Carbon Dioxide 11 L BUN 52 H Creatinine 3.8 H Glucose 186 H POC Glucose 133 H Lactic Acid Calcium 6.5 L D Phosphorus 5.80 H Magnesium Iron TIBC Transferrin Total Bilirubin Direct Bilirubin AST ALT Alkaline Phosphatase Lactate Dehydrogenase CK-MB (CK-2) Troponin T C-Reactive Protein Total Protein Albumin Triglycerides Cholesterol HDL Cholesterol Vitamin B12 Urine Creatinine Urine Total Protein Heparin-induced Plt Ab Hep Bs Antibody, Quant Crossmatch 12/06/16 12/06/16 12/06/16 04:50 05:04 05:07 WBC RBC Hgb Hct MCV MCHC RDW Plt Count Lymph % (Auto) [place] % (Auto) [place] # Baso # Seg Neutrophils % Seg Neuts % (Manual) Lymphocytes % (Manual) Monocytes % (Manual) Nucleated RBC % Seg Neutrophils # Seg Neutrophils # Man Lymphocytes # (Manual) Monocytes # (Manual) Percent Retic Haptoglobin PT INR Fibrinogen D-Dimer POC ABG pH POC ABG pCO2 13.0 L POC ABG pO2 111 H Sodium Potassium Chloride Carbon Dioxide BUN Creatinine Glucose POC Glucose 127 H Lactic Acid 6.50 H* Calcium Phosphorus Magnesium Iron TIBC Transferrin Total Bilirubin Direct Bilirubin AST ALT Alkaline Phosphatase Lactate Dehydrogenase CK-MB (CK-2) Troponin T C-Reactive Protein Total Protein Albumin Triglycerides Cholesterol HDL Cholesterol Vitamin B12 Urine Creatinine Urine Total Protein Heparin-induced Plt Ab Hep Bs Antibody, Quant Crossmatch 12/06/16 12/06/16 12/06/16 06:10 06:54 07:46 WBC RBC Hgb Hct MCV MCHC RDW Plt Count Lymph % (Auto) [place] % (Auto) [place] # Baso # Seg Neutrophils % Seg Neuts % (Manual) Lymphocytes % (Manual) Monocytes % (Manual) Nucleated RBC % Seg Neutrophils # Seg Neutrophils # Man Lymphocytes # (Manual) Monocytes # (Manual) Percent Retic Haptoglobin PT INR Fibrinogen D-Dimer POC ABG pH POC ABG pCO2 POC ABG pO2 Sodium Potassium Chloride Carbon Dioxide BUN Creatinine Glucose POC Glucose 219 H 237 H 158 H Lactic Acid Calcium Phosphorus Magnesium Iron TIBC Transferrin Total Bilirubin Direct Bilirubin AST ALT Alkaline Phosphatase Lactate Dehydrogenase CK-MB (CK-2) Troponin T C-Reactive Protein Total Protein Albumin Triglycerides Cholesterol HDL Cholesterol Vitamin B12 Urine Creatinine Urine Total Protein Heparin-induced Plt Ab Hep Bs Antibody, Quant Crossmatch 12/06/16 12/06/16 12/06/16 08:55 10:27 11:58 WBC RBC Hgb Hct MCV MCHC RDW Plt Count Lymph % (Auto) [place] % (Auto) [place] # Baso # Seg Neutrophils % Seg Neuts % (Manual) Lymphocytes % (Manual) Monocytes % (Manual) Nucleated RBC % Seg Neutrophils # Seg Neutrophils # Man Lymphocytes # (Manual) Monocytes # (Manual) Percent Retic Haptoglobin PT INR Fibrinogen D-Dimer POC ABG pH POC ABG pCO2 POC ABG pO2 Sodium Potassium Chloride Carbon Dioxide BUN Creatinine Glucose POC Glucose 40 L 128 H 144 H Lactic Acid Calcium Phosphorus Magnesium Iron TIBC Transferrin Total Bilirubin Direct Bilirubin AST ALT Alkaline Phosphatase Lactate Dehydrogenase CK-MB (CK-2) Troponin T C-Reactive Protein Total Protein Albumin Triglycerides Cholesterol HDL Cholesterol Vitamin B12 Urine Creatinine Urine Total Protein Heparin-induced Plt Ab Hep Bs Antibody, Quant Crossmatch 07/02/17 07/02/17 07/02/17 18:14 19:00 19:06 WBC RBC Hgb Hct MCV MCHC RDW Plt Count Lymph % (Auto) [place] % (Auto) [place] # Baso # Seg Neutrophils % Seg Neuts % (Manual) Lymphocytes % (Manual) Monocytes % (Manual) Nucleated RBC % Seg Neutrophils # Seg Neutrophils # Man Lymphocytes # (Manual) Monocytes # (Manual) Percent Retic Haptoglobin PT INR Fibrinogen D-Dimer POC ABG pH POC ABG pCO2 POC ABG pO2 Sodium 149 H Potassium 5.6 H Chloride 115.9 H Carbon Dioxide 13 L BUN 56 H Creatinine 4.3 H Glucose 124 H POC Glucose 55 L 148 H Lactic Acid Calcium 6.0 L Phosphorus Magnesium Iron TIBC Transferrin Total Bilirubin Direct Bilirubin AST ALT Alkaline Phosphatase Lactate Dehydrogenase CK-MB (CK-2) Troponin T C-Reactive Protein Total Protein Albumin Triglycerides Cholesterol HDL Cholesterol Vitamin B12 Urine Creatinine Urine Total Protein Heparin-induced Plt Ab Hep Bs Antibody, Quant Crossmatch 12/06/16 12/06/16 12/07/16 21:24 21:51 02:32 WBC RBC Hgb Hct MCV MCHC RDW Plt Count Lymph % (Auto) [place] % (Auto) [place] # Baso # Seg Neutrophils % Seg Neuts % (Manual) Lymphocytes % (Manual) Monocytes % (Manual) Nucleated RBC % Seg Neutrophils # Seg Neutrophils # Man Lymphocytes # (Manual) Monocytes # (Manual) Percent Retic Haptoglobin PT INR Fibrinogen D-Dimer POC ABG pH POC ABG pCO2 17.0 L POC ABG pO2 142 H Sodium Potassium Chloride Carbon Dioxide BUN Creatinine Glucose POC Glucose 107 H 175 H Lactic Acid Calcium Phosphorus Magnesium Iron TIBC Transferrin Total Bilirubin Direct Bilirubin AST ALT Alkaline Phosphatase Lactate Dehydrogenase CK-MB (CK-2) Troponin T C-Reactive Protein Total Protein Albumin Triglycerides Cholesterol HDL Cholesterol Vitamin B12 Urine Creatinine Urine Total Protein Heparin-induced Plt Ab Hep Bs Antibody, Quant Crossmatch 12/07/16 12/07/16 12/07/16 05:01 05:25 06:00 WBC RBC 2.52 L Hgb 7.1 L Hct 22.1 L MCV MCHC RDW 19.3 H Plt Count 90 L Lymph % (Auto) [place] % (Auto) [place] # Baso # Seg Neutrophils % Seg Neuts % (Manual) 75.0 H Lymphocytes % (Manual) 11.0 L Monocytes % (Manual) Nucleated RBC % Seg Neutrophils # Seg Neutrophils # Man Lymphocytes # (Manual) 0.7 L Monocytes # (Manual) Percent Retic Haptoglobin PT INR Fibrinogen D-Dimer POC ABG pH 7.300 L POC ABG pCO2 17.1 L POC ABG pO2 140 H Sodium Potassium Chloride Carbon Dioxide BUN Creatinine Glucose POC Glucose 279 H Lactic Acid Calcium Phosphorus Magnesium Iron TIBC Transferrin Total Bilirubin Direct Bilirubin AST ALT Alkaline Phosphatase Lactate Dehydrogenase CK-MB (CK-2) Troponin T C-Reactive Protein Total Protein Albumin Triglycerides Cholesterol HDL Cholesterol Vitamin B12 Urine Creatinine Urine Total Protein Heparin-induced Plt Ab Hep Bs Antibody, Quant Crossmatch 12/07/16 12/07/16 12/07/16 06:00 06:00 07:30 WBC RBC Hgb Hct MCV MCHC RDW Plt Count Lymph % (Auto) [place] % (Auto) [place] # Baso # Seg Neutrophils % Seg Neuts % (Manual) Lymphocytes % (Manual) Monocytes % (Manual) Nucleated RBC % Seg Neutrophils # Seg Neutrophils # Man Lymphocytes # (Manual) Monocytes # (Manual) Percent Retic Haptoglobin PT INR Fibrinogen D-Dimer POC ABG pH POC ABG pCO2 POC ABG pO2 Sodium Potassium Chloride Carbon Dioxide BUN Creatinine Glucose POC Glucose Lactic Acid 6.90 H* Calcium Phosphorus 6.80 H Magnesium Iron TIBC Transferrin Total Bilirubin Direct Bilirubin AST ALT Alkaline Phosphatase Lactate Dehydrogenase CK-MB (CK-2) Troponin T C-Reactive Protein 39.40 H Total Protein Albumin Triglycerides Cholesterol HDL Cholesterol Vitamin B12 Urine Creatinine Urine Total Protein Heparin-induced Plt Ab Hep Bs Antibody, Quant Crossmatch 12/07/16 12/07/16 12/07/16 08:40 10:53 14:31 WBC RBC Hgb Hct MCV MCHC RDW Plt Count Lymph % (Auto) [place] % (Auto) [place] # Baso # Seg Neutrophils % Seg Neuts % (Manual) Lymphocytes % (Manual) Monocytes % (Manual) Nucleated RBC % Seg Neutrophils # Seg Neutrophils # Man Lymphocytes # (Manual) Monocytes # (Manual) Percent Retic Haptoglobin PT INR Fibrinogen D-Dimer POC ABG pH POC ABG pCO2 POC ABG pO2 Sodium Potassium 7.0 H* D Chloride 112.4 H Carbon Dioxide 8 L* BUN 61 H Creatinine 5.1 H Glucose 213 H POC Glucose 353 H 52 L Lactic Acid Calcium 5.8 L* Phosphorus Magnesium Iron TIBC Transferrin Total Bilirubin Direct Bilirubin AST ALT Alkaline Phosphatase Lactate Dehydrogenase CK-MB (CK-2) Troponin T C-Reactive Protein Total Protein Albumin Triglycerides Cholesterol HDL Cholesterol Vitamin B12 Urine Creatinine Urine Total Protein Heparin-induced Plt Ab Hep Bs Antibody, Quant Crossmatch 12/07/16 12/07/16 12/07/16 14:45 15:33 16:22 WBC RBC Hgb Hct MCV MCHC RDW Plt Count Lymph % (Auto) [place] % (Auto) [place] # Baso # Seg Neutrophils % Seg Neuts % (Manual) Lymphocytes % (Manual) Monocytes % (Manual) Nucleated RBC % Seg Neutrophils # Seg Neutrophils # Man Lymphocytes # (Manual) Monocytes # (Manual) Percent Retic Haptoglobin PT 17.5 H INR 1.44 H Fibrinogen D-Dimer POC ABG pH POC ABG pCO2 POC ABG pO2 Sodium Potassium Chloride Carbon Dioxide BUN Creatinine Glucose POC Glucose < 40 L 118 H Lactic Acid Calcium Phosphorus Magnesium Iron TIBC Transferrin Total Bilirubin Direct Bilirubin AST ALT Alkaline Phosphatase Lactate Dehydrogenase CK-MB (CK-2) Troponin T C-Reactive Protein Total Protein Albumin Triglycerides Cholesterol HDL Cholesterol Vitamin B12 Urine Creatinine Urine Total Protein Heparin-induced Plt Ab Hep Bs Antibody, Quant Crossmatch 12/07/16 12/07/16 12/07/16 21:35 21:35 21:58 WBC RBC Hgb Hct MCV MCHC RDW Plt Count Lymph % (Auto) [place] % (Auto) [place] # Baso # Seg Neutrophils % Seg Neuts % (Manual) Lymphocytes % (Manual) Monocytes % (Manual) Nucleated RBC % Seg Neutrophils # Seg Neutrophils # Man Lymphocytes # (Manual) Monocytes # (Manual) Percent Retic Haptoglobin PT INR Fibrinogen D-Dimer POC ABG pH POC ABG pCO2 POC ABG pO2 Sodium 150 H Potassium 3.3 L D Chloride 111.4 H Carbon Dioxide 21 L D BUN 22 H Creatinine 2.6 H Glucose 23 L* POC Glucose < 40 L Lactic Acid Calcium Phosphorus Magnesium Iron TIBC Transferrin Total Bilirubin 1.40 H Direct Bilirubin 0.9 H AST 94 H ALT 142 H Alkaline Phosphatase 249 H Lactate Dehydrogenase CK-MB (CK-2) Troponin T C-Reactive Protein Total Protein 4.6 L D Albumin 2.1 L Triglycerides Cholesterol HDL Cholesterol Vitamin B12 Urine Creatinine Urine Total Protein Heparin-induced Plt Ab Hep Bs Antibody, Quant Crossmatch 12/07/16 12/08/16 12/08/16 23:31 04:43 04:50 WBC RBC 2.35 L Hgb 6.6 L Hct 20.1 L MCV MCHC RDW 17.8 H Plt Count 48 L Lymph % (Auto) [place] % (Auto) [place] # Baso # Seg Neutrophils % Seg Neuts % (Manual) Lymphocytes % (Manual) Monocytes % (Manual) Nucleated RBC % Seg Neutrophils # Seg Neutrophils # Man Lymphocytes # (Manual) 0.9 L Monocytes # (Manual) Percent Retic Haptoglobin PT INR Fibrinogen D-Dimer POC ABG pH 7.586 H POC ABG pCO2 17.7 L POC ABG pO2 150 H Sodium Potassium Chloride Carbon Dioxide BUN Creatinine Glucose POC Glucose 42 L Lactic Acid Calcium Phosphorus Magnesium Iron TIBC Transferrin Total Bilirubin Direct Bilirubin AST ALT Alkaline Phosphatase Lactate Dehydrogenase CK-MB (CK-2) Troponin T C-Reactive Protein Total Protein Albumin Triglycerides Cholesterol HDL Cholesterol Vitamin B12 Urine Creatinine Urine Total Protein Heparin-induced Plt Ab Hep Bs Antibody, Quant Crossmatch 12/08/16 12/08/16 12/08/16 04:50 04:59 06:54 WBC RBC Hgb Hct MCV MCHC RDW Plt Count Lymph % (Auto) [place] % (Auto) [place] # Baso # Seg Neutrophils % Seg Neuts % (Manual) Lymphocytes % (Manual) Monocytes % (Manual) Nucleated RBC % Seg Neutrophils # Seg Neutrophils # Man Lymphocytes # (Manual) Monocytes # (Manual) Percent Retic Haptoglobin PT INR Fibrinogen D-Dimer POC ABG pH POC ABG pCO2 POC ABG pO2 Sodium 149 H Potassium 3.2 L Chloride 111.8 H Carbon Dioxide 17 L BUN 26 H Creatinine 3.4 H Glucose 163 H POC Glucose 204 H 203 H Lactic Acid Calcium 7.7 L Phosphorus 2.40 L D Magnesium Iron TIBC Transferrin Total Bilirubin Direct Bilirubin AST ALT Alkaline Phosphatase Lactate Dehydrogenase CK-MB (CK-2) Troponin T C-Reactive Protein Total Protein Albumin Triglycerides Cholesterol HDL Cholesterol Vitamin B12 Urine Creatinine Urine Total Protein Heparin-induced Plt Ab Hep Bs Antibody, Quant Crossmatch 12/08/16 12/08/16 12/08/16 08:04 08:46 08:46 WBC RBC Hgb Hct MCV MCHC RDW Plt Count Lymph % (Auto) [place] % (Auto) [place] # Baso # Seg Neutrophils % Seg Neuts % (Manual) Lymphocytes % (Manual) Monocytes % (Manual) Nucleated RBC % Seg Neutrophils # Seg Neutrophils # Man Lymphocytes # (Manual) Monocytes # (Manual) Percent Retic Haptoglobin PT INR Fibrinogen D-Dimer POC ABG pH POC ABG pCO2 POC ABG pO2 Sodium 147 H Potassium 2.9 L* Chloride 110.6 H Carbon Dioxide 17 L BUN 28 H Creatinine 3.6 H Glucose 127 H POC Glucose 205 H Lactic Acid Calcium 7.3 L Phosphorus Magnesium Iron TIBC Transferrin Total Bilirubin Direct Bilirubin AST ALT Alkaline Phosphatase Lactate Dehydrogenase CK-MB (CK-2) Troponin T C-Reactive Protein Total Protein Albumin Triglycerides Cholesterol HDL Cholesterol Vitamin B12 Urine Creatinine Urine Total Protein Heparin-induced Plt Ab Hep Bs Antibody, Quant Crossmatch See Detail 12/08/16 12/08/16 12/08/16 12:36 19:00 19:00 WBC RBC Hgb Hct MCV MCHC RDW Plt Count Lymph % (Auto) [place] % (Auto) [place] # Baso # Seg Neutrophils % Seg Neuts % (Manual) Lymphocytes % (Manual) Monocytes % (Manual) Nucleated RBC % Seg Neutrophils # Seg Neutrophils # Man Lymphocytes # (Manual) Monocytes # (Manual) Percent Retic Haptoglobin PT 15.3 H INR 1.22 H Fibrinogen 563 H D-Dimer 5507.36 H POC ABG pH POC ABG pCO2 POC ABG pO2 Sodium Potassium Chloride Carbon Dioxide 21 L BUN Creatinine 1.7 H D Glucose 155 H POC Glucose 181 H Lactic Acid Calcium Phosphorus Magnesium Iron TIBC Transferrin Total Bilirubin Direct Bilirubin AST ALT Alkaline Phosphatase Lactate Dehydrogenase CK-MB (CK-2) Troponin T C-Reactive Protein Total Protein Albumin Triglycerides Cholesterol HDL Cholesterol Vitamin B12 Urine Creatinine Urine Total Protein Heparin-induced Plt Ab Hep Bs Antibody, Quant Crossmatch 12/08/16 12/08/16 12/08/16 19:00 19:00 21:30 WBC RBC 2.76 L Hgb 7.8 L Hct 23.7 L MCV MCHC RDW 17.0 H Plt Count 38 L Lymph % (Auto) [place] % (Auto) [place] # Baso # Seg Neutrophils % Seg Neuts % (Manual) Lymphocytes % (Manual) Monocytes % (Manual) Nucleated RBC % Seg Neutrophils # Seg Neutrophils # Man Lymphocytes # (Manual) Monocytes # (Manual) Percent Retic Haptoglobin 271 H PT INR Fibrinogen D-Dimer POC ABG pH POC ABG pCO2 POC ABG pO2 Sodium Potassium Chloride Carbon Dioxide BUN Creatinine Glucose POC Glucose Lactic Acid Calcium Phosphorus Magnesium Iron TIBC Transferrin Total Bilirubin Direct Bilirubin AST ALT Alkaline Phosphatase Lactate Dehydrogenase 382 H CK-MB (CK-2) Troponin T C-Reactive Protein Total Protein Albumin Triglycerides Cholesterol HDL Cholesterol Vitamin B12 Urine Creatinine Urine Total Protein Heparin-induced Plt Ab Hep Bs Antibody, Quant Crossmatch 12/08/16 12/08/16 12/09/16 23:32 23:44 05:22 WBC RBC Hgb Hct MCV MCHC RDW Plt Count Lymph % (Auto) [place] % (Auto) [place] # Baso # Seg Neutrophils % Seg Neuts % (Manual) Lymphocytes % (Manual) Monocytes % (Manual) Nucleated RBC % Seg Neutrophils # Seg Neutrophils # Man Lymphocytes # (Manual) Monocytes # (Manual) Percent Retic Haptoglobin PT INR Fibrinogen D-Dimer POC ABG pH 7.498 H POC ABG pCO2 25.2 L POC ABG pO2 137 H Sodium Potassium Chloride Carbon Dioxide BUN Creatinine Glucose POC Glucose 311 H 113 H Lactic Acid Calcium Phosphorus Magnesium Iron TIBC Transferrin Total Bilirubin Direct Bilirubin AST ALT Alkaline Phosphatase Lactate Dehydrogenase CK-MB (CK-2) Troponin T C-Reactive Protein Total Protein Albumin Triglycerides Cholesterol HDL Cholesterol Vitamin B12 Urine Creatinine Urine Total Protein Heparin-induced Plt Ab Hep Bs Antibody, Quant Crossmatch 12/09/16 12/09/16 12/09/16 06:00 11:29 11:59 WBC RBC Hgb Hct MCV MCHC RDW Plt Count Lymph % (Auto) [place] % (Auto) [place] # Baso # Seg Neutrophils % Seg Neuts % (Manual) Lymphocytes % (Manual) Monocytes % (Manual) Nucleated RBC % Seg Neutrophils # Seg Neutrophils # Man Lymphocytes # (Manual) Monocytes # (Manual) Percent Retic 0.23 L Haptoglobin PT INR Fibrinogen D-Dimer POC ABG pH POC ABG pCO2 POC ABG pO2 Sodium Potassium Chloride 110.2 H Carbon Dioxide 18 L BUN 19 H Creatinine 2.5 H Glucose 105 H POC Glucose 254 H Lactic Acid Calcium Phosphorus 2.00 L Magnesium Iron TIBC Transferrin Total Bilirubin Direct Bilirubin AST ALT Alkaline Phosphatase Lactate Dehydrogenase CK-MB (CK-2) Troponin T C-Reactive Protein Total Protein Albumin Triglycerides Cholesterol HDL Cholesterol Vitamin B12 Urine Creatinine Urine Total Protein Heparin-induced Plt Ab Hep Bs Antibody, Quant Crossmatch 12/09/16 12/09/16 12/09/16 12:02 13:27 13:27 WBC RBC Hgb Hct MCV MCHC RDW Plt Count Lymph % (Auto) [place] % (Auto) [place] # Baso # Seg Neutrophils % Seg Neuts % (Manual) Lymphocytes % (Manual) Monocytes % (Manual) Nucleated RBC % Seg Neutrophils # Seg Neutrophils # Man Lymphocytes # (Manual) Monocytes # (Manual) Percent Retic Haptoglobin PT INR Fibrinogen D-Dimer POC ABG pH 7.326 L POC ABG pCO2 POC ABG pO2 115 H Sodium Potassium Chloride Carbon Dioxide BUN Creatinine Glucose POC Glucose Lactic Acid Calcium Phosphorus Magnesium Iron 15 L TIBC 134 L Transferrin Total Bilirubin Direct Bilirubin AST ALT Alkaline Phosphatase Lactate Dehydrogenase CK-MB (CK-2) Troponin T C-Reactive Protein Total Protein Albumin Triglycerides Cholesterol HDL Cholesterol Vitamin B12 > 2000 H Urine Creatinine Urine Total Protein Heparin-induced Plt Ab Hep Bs Antibody, Quant Crossmatch 12/09/16 12/09/16 12/09/16 13:27 13:27 16:28 WBC RBC Hgb Hct MCV MCHC RDW Plt Count Lymph % (Auto) [place] % (Auto) [place] # Baso # Seg Neutrophils % Seg Neuts % (Manual) Lymphocytes % (Manual) Monocytes % (Manual) Nucleated RBC % Seg Neutrophils # Seg Neutrophils # Man Lymphocytes # (Manual) Monocytes # (Manual) Percent Retic Haptoglobin PT INR Fibrinogen D-Dimer POC ABG pH POC ABG pCO2 POC ABG pO2 Sodium Potassium Chloride Carbon Dioxide BUN Creatinine Glucose POC Glucose 199 H Lactic Acid Calcium Phosphorus Magnesium Iron TIBC Transferrin Total Bilirubin Direct Bilirubin AST ALT Alkaline Phosphatase Lactate Dehydrogenase CK-MB (CK-2) Troponin T C-Reactive Protein Total Protein Albumin Triglycerides Cholesterol HDL Cholesterol Vitamin B12 Urine Creatinine Urine Total Protein Heparin-induced Plt Ab Weak positive H Hep Bs Antibody, Quant <5 L Crossmatch 12/09/16 12/09/16 12/10/16 23:27 Unknown 05:36 WBC 11.3 H RBC 2.92 L Hgb 8.4 L Hct 25.3 L MCV MCHC RDW 16.9 H Plt Count 31 L Lymph % (Auto) [place] % (Auto) [place] # Baso # Seg Neutrophils % Seg Neuts % (Manual) Lymphocytes % (Manual) Monocytes % (Manual) Nucleated RBC % Seg Neutrophils # Seg Neutrophils # Man Lymphocytes # (Manual) Monocytes # (Manual) Percent Retic Haptoglobin PT INR Fibrinogen D-Dimer POC ABG pH POC ABG pCO2 POC ABG pO2 Sodium Potassium Chloride Carbon Dioxide BUN Creatinine Glucose POC Glucose 247 H 248 H Lactic Acid Calcium Phosphorus Magnesium Iron TIBC Transferrin Total Bilirubin Direct Bilirubin AST ALT Alkaline Phosphatase Lactate Dehydrogenase CK-MB (CK-2) Troponin T C-Reactive Protein Total Protein Albumin Triglycerides Cholesterol HDL Cholesterol Vitamin B12 Urine Creatinine Urine Total Protein Heparin-induced Plt Ab Hep Bs Antibody, Quant Crossmatch 12/10/16 12/10/16 12/10/16 09:55 09:55 11:49 WBC 21.2 H RBC 3.37 L Hgb 9.6 L Hct 29.5 L MCV MCHC RDW 16.3 H Plt Count 102 L D Lymph % (Auto) [place] % (Auto) [place] # Baso # Seg Neutrophils % Seg Neuts % (Manual) Lymphocytes % (Manual) Monocytes % (Manual) Nucleated RBC % Seg Neutrophils # Seg Neutrophils # Man Lymphocytes # (Manual) Monocytes # (Manual) Percent Retic Haptoglobin PT INR Fibrinogen D-Dimer POC ABG pH POC ABG pCO2 POC ABG pO2 Sodium Potassium Chloride 107.4 H Carbon Dioxide 21 L BUN 37 H Creatinine 4.2 H D Glucose 174 H POC Glucose 265 H Lactic Acid Calcium Phosphorus Magnesium Iron TIBC Transferrin Total Bilirubin Direct Bilirubin AST ALT Alkaline Phosphatase Lactate Dehydrogenase CK-MB (CK-2) Troponin T C-Reactive Protein Total Protein Albumin Triglycerides Cholesterol HDL Cholesterol Vitamin B12 Urine Creatinine Urine Total Protein Heparin-induced Plt Ab Hep Bs Antibody, Quant Crossmatch 12/10/16 12/10/16 12/11/16 17:56 23:44 04:30 WBC 23.5 H RBC 3.46 L Hgb 9.7 L Hct 30.1 L MCV MCHC RDW 16.4 H Plt Count 115 L Lymph % (Auto) [place] % (Auto) [place] # Baso # Seg Neutrophils % Seg Neuts % (Manual) 84.0 H Lymphocytes % (Manual) 5.0 L Monocytes % (Manual) 10.0 H Nucleated RBC % 1.0 H Seg Neutrophils # Seg Neutrophils # Man 19.7 H Lymphocytes # (Manual) Monocytes # (Manual) 2.4 H Percent Retic Haptoglobin PT INR Fibrinogen D-Dimer POC ABG pH POC ABG pCO2 POC ABG pO2 Sodium Potassium Chloride Carbon Dioxide BUN Creatinine Glucose POC Glucose 118 H 378 H Lactic Acid Calcium Phosphorus Magnesium Iron TIBC Transferrin Total Bilirubin Direct Bilirubin AST ALT Alkaline Phosphatase Lactate Dehydrogenase CK-MB (CK-2) Troponin T C-Reactive Protein Total Protein Albumin Triglycerides Cholesterol HDL Cholesterol Vitamin B12 Urine Creatinine Urine Total Protein Heparin-induced Plt Ab Hep Bs Antibody, Quant Crossmatch 12/11/16 12/11/16 12/11/16 04:30 05:33 12:48 WBC RBC Hgb Hct MCV MCHC RDW Plt Count Lymph % (Auto) [place] % (Auto) [place] # Baso # Seg Neutrophils % Seg Neuts % (Manual) Lymphocytes % (Manual) Monocytes % (Manual) Nucleated RBC % Seg Neutrophils # Seg Neutrophils # Man Lymphocytes # (Manual) Monocytes # (Manual) Percent Retic Haptoglobin PT INR Fibrinogen D-Dimer POC ABG pH POC ABG pCO2 POC ABG pO2 Sodium Potassium Chloride Carbon Dioxide 21 L BUN 50 H Creatinine 4.8 H Glucose 303 H POC Glucose 335 H 325 H Lactic Acid Calcium 8.2 L Phosphorus Magnesium Iron TIBC Transferrin Total Bilirubin Direct Bilirubin AST ALT Alkaline Phosphatase Lactate Dehydrogenase CK-MB (CK-2) Troponin T C-Reactive Protein Total Protein Albumin Triglycerides Cholesterol HDL Cholesterol Vitamin B12 Urine Creatinine Urine Total Protein Heparin-induced Plt Ab Hep Bs Antibody, Quant Crossmatch 12/11/16 12/11/16 12/12/16 17:49 21:16 00:49 WBC RBC Hgb Hct MCV MCHC RDW Plt Count Lymph % (Auto) [place] % (Auto) [place] # Baso # Seg Neutrophils % Seg Neuts % (Manual) Lymphocytes % (Manual) Monocytes % (Manual) Nucleated RBC % Seg Neutrophils # Seg Neutrophils # Man Lymphocytes # (Manual) Monocytes # (Manual) Percent Retic Haptoglobin PT INR Fibrinogen D-Dimer POC ABG pH POC ABG pCO2 POC ABG pO2 Sodium Potassium Chloride Carbon Dioxide BUN Creatinine Glucose POC Glucose 368 H 162 H 225 H Lactic Acid Calcium Phosphorus Magnesium Iron TIBC Transferrin Total Bilirubin Direct Bilirubin AST ALT Alkaline Phosphatase Lactate Dehydrogenase CK-MB (CK-2) Troponin T C-Reactive Protein Total Protein Albumin Triglycerides Cholesterol HDL Cholesterol Vitamin B12 Urine Creatinine Urine Total Protein Heparin-induced Plt Ab Hep Bs Antibody, Quant Crossmatch 12/12/16 12/12/16 12/12/16 06:09 07:52 08:18 WBC 24.1 H RBC 3.16 L Hgb 9.0 L Hct 29.4 L MCV MCHC RDW 16.6 H Plt Count 96 L Lymph % (Auto) [place] % (Auto) [place] # Baso # Seg Neutrophils % Seg Neuts % (Manual) 75.0 H Lymphocytes % (Manual) Monocytes % (Manual) Nucleated RBC % Seg Neutrophils # Seg Neutrophils # Man 18.1 H Lymphocytes # (Manual) Monocytes # (Manual) 1.4 H Percent Retic Haptoglobin PT INR Fibrinogen D-Dimer POC ABG pH POC ABG pCO2 POC ABG pO2 Sodium Potassium Chloride Carbon Dioxide BUN Creatinine Glucose POC Glucose 428 H 418 H Lactic Acid Calcium Phosphorus Magnesium Iron TIBC Transferrin Total Bilirubin Direct Bilirubin AST ALT Alkaline Phosphatase Lactate Dehydrogenase CK-MB (CK-2) Troponin T C-Reactive Protein Total Protein Albumin Triglycerides Cholesterol HDL Cholesterol Vitamin B12 Urine Creatinine Urine Total Protein Heparin-induced Plt Ab Hep Bs Antibody, Quant Crossmatch 12/12/16 12/12/16 12/12/16 08:18 11:31 17:03 WBC RBC Hgb Hct MCV MCHC RDW Plt Count Lymph % (Auto) [place] % (Auto) [place] # Baso # Seg Neutrophils % Seg Neuts % (Manual) Lymphocytes % (Manual) Monocytes % (Manual) Nucleated RBC % Seg Neutrophils # Seg Neutrophils # Man Lymphocytes # (Manual) Monocytes # (Manual) Percent Retic Haptoglobin PT INR Fibrinogen D-Dimer POC ABG pH POC ABG pCO2 POC ABG pO2 Sodium Potassium Chloride Carbon Dioxide 12 L D BUN 41 H Creatinine 4.5 H Glucose 369 H POC Glucose 212 H 422 H Lactic Acid Calcium Phosphorus Magnesium Iron TIBC Transferrin Total Bilirubin Direct Bilirubin AST ALT Alkaline Phosphatase Lactate Dehydrogenase CK-MB (CK-2) Troponin T C-Reactive Protein Total Protein Albumin Triglycerides Cholesterol HDL Cholesterol Vitamin B12 Urine Creatinine Urine Total Protein Heparin-induced Plt Ab Hep Bs Antibody, Quant Crossmatch 12/12/16 12/13/16 12/13/16 21:35 07:49 07:49 WBC 24.0 H RBC 2.90 L Hgb 8.3 L Hct 25.8 L MCV MCHC RDW 15.5 H Plt Count 120 L Lymph % (Auto) [place] % (Auto) [place] # Baso # Seg Neutrophils % Seg Neuts % (Manual) 89.0 H Lymphocytes % (Manual) 7.0 L Monocytes % (Manual) Nucleated RBC % Seg Neutrophils # Seg Neutrophils # Man 21.4 H Lymphocytes # (Manual) Monocytes # (Manual) Percent Retic Haptoglobin PT INR Fibrinogen D-Dimer POC ABG pH POC ABG pCO2 POC ABG pO2 Sodium Potassium 3.2 L Chloride Carbon Dioxide BUN 21 H Creatinine 3.0 H Glucose 21 L* POC Glucose 185 H Lactic Acid Calcium Phosphorus Magnesium Iron TIBC Transferrin Total Bilirubin Direct Bilirubin AST ALT Alkaline Phosphatase Lactate Dehydrogenase CK-MB (CK-2) Troponin T C-Reactive Protein Total Protein Albumin Triglycerides Cholesterol HDL Cholesterol Vitamin B12 Urine Creatinine Urine Total Protein Heparin-induced Plt Ab Hep Bs Antibody, Quant Crossmatch 12/13/16 12/13/16 12/13/16 09:57 11:02 16:52 WBC RBC Hgb Hct MCV MCHC RDW Plt Count Lymph % (Auto) [place] % (Auto) [place] # Baso # Seg Neutrophils % Seg Neuts % (Manual) Lymphocytes % (Manual) Monocytes % (Manual) Nucleated RBC % Seg Neutrophils # Seg Neutrophils # Man Lymphocytes # (Manual) Monocytes # (Manual) Percent Retic Haptoglobin PT INR Fibrinogen D-Dimer POC ABG pH POC ABG pCO2 POC ABG pO2 Sodium Potassium Chloride Carbon Dioxide BUN Creatinine Glucose POC Glucose < 40 L 231 H 312 H Lactic Acid Calcium Phosphorus Magnesium Iron TIBC Transferrin Total Bilirubin Direct Bilirubin AST ALT Alkaline Phosphatase Lactate Dehydrogenase CK-MB (CK-2) Troponin T C-Reactive Protein Total Protein Albumin Triglycerides Cholesterol HDL Cholesterol Vitamin B12 Urine Creatinine Urine Total Protein Heparin-induced Plt Ab Hep Bs Antibody, Quant Crossmatch 12/13/16 12/14/16 12/14/16 21:32 07:07 07:07 WBC 16.7 H RBC 2.80 L Hgb 7.9 L Hct 24.7 L MCV MCHC RDW 15.4 H Plt Count 131 L Lymph % (Auto) 13.1 L [place] % (Auto) [place] # 1.2 H Baso # Seg Neutrophils % 78.3 H Seg Neuts % (Manual) Lymphocytes % (Manual) Monocytes % (Manual) Nucleated RBC % Seg Neutrophils # 13.1 H Seg Neutrophils # Man Lymphocytes # (Manual) Monocytes # (Manual) Percent Retic Haptoglobin PT INR Fibrinogen D-Dimer POC ABG pH POC ABG pCO2 POC ABG pO2 Sodium Potassium 3.5 L Chloride Carbon Dioxide BUN 30 H Creatinine 4.6 H D Glucose 181 H POC Glucose 275 H Lactic Acid Calcium 7.7 L Phosphorus Magnesium Iron TIBC Transferrin Total Bilirubin Direct Bilirubin AST ALT Alkaline Phosphatase Lactate Dehydrogenase CK-MB (CK-2) Troponin T C-Reactive Protein Total Protein Albumin Triglycerides Cholesterol HDL Cholesterol Vitamin B12 Urine Creatinine Urine Total Protein Heparin-induced Plt Ab Hep Bs Antibody, Quant Crossmatch 12/14/16 12/14/16 12/14/16 07:46 11:35 16:24 WBC RBC Hgb Hct MCV MCHC RDW Plt Count Lymph % (Auto) [place] % (Auto) [place] # Baso # Seg Neutrophils % Seg Neuts % (Manual) Lymphocytes % (Manual) Monocytes % (Manual) Nucleated RBC % Seg Neutrophils # Seg Neutrophils # Man Lymphocytes # (Manual) Monocytes # (Manual) Percent Retic Haptoglobin PT INR Fibrinogen D-Dimer POC ABG pH POC ABG pCO2 POC ABG pO2 Sodium Potassium Chloride Carbon Dioxide BUN Creatinine Glucose POC Glucose 189 H 254 H 466 H Lactic Acid Calcium Phosphorus Magnesium Iron TIBC Transferrin Total Bilirubin Direct Bilirubin AST ALT Alkaline Phosphatase Lactate Dehydrogenase CK-MB (CK-2) Troponin T C-Reactive Protein Total Protein Albumin Triglycerides Cholesterol HDL Cholesterol Vitamin B12 Urine Creatinine Urine Total Protein Heparin-induced Plt Ab Hep Bs Antibody, Quant Crossmatch 12/14/16 12/15/16 12/15/16 20:57 06:27 07:46 WBC RBC Hgb Hct MCV MCHC RDW Plt Count Lymph % (Auto) [place] % (Auto) [place] # Baso # Seg Neutrophils % Seg Neuts % (Manual) Lymphocytes % (Manual) Monocytes % (Manual) Nucleated RBC % Seg Neutrophils # Seg Neutrophils # Man Lymphocytes # (Manual) Monocytes # (Manual) Percent Retic Haptoglobin PT INR Fibrinogen D-Dimer POC ABG pH POC ABG pCO2 POC ABG pO2 Sodium Potassium Chloride Carbon Dioxide BUN Creatinine Glucose POC Glucose 301 H 183 H 231 H Lactic Acid Calcium Phosphorus Magnesium Iron TIBC Transferrin Total Bilirubin Direct Bilirubin AST ALT Alkaline Phosphatase Lactate Dehydrogenase CK-MB (CK-2) Troponin T C-Reactive Protein Total Protein Albumin Triglycerides Cholesterol HDL Cholesterol Vitamin B12 Urine Creatinine Urine Total Protein Heparin-induced Plt Ab Hep Bs Antibody, Quant Crossmatch 12/15/16 12/15/16 12/15/16 11:38 15:34 20:51 WBC RBC Hgb Hct MCV MCHC RDW Plt Count Lymph % (Auto) [place] % (Auto) [place] # Baso # Seg Neutrophils % Seg Neuts % (Manual) Lymphocytes % (Manual) Monocytes % (Manual) Nucleated RBC % Seg Neutrophils # Seg Neutrophils # Man Lymphocytes # (Manual) Monocytes # (Manual) Percent Retic Haptoglobin PT INR Fibrinogen D-Dimer POC ABG pH POC ABG pCO2 POC ABG pO2 Sodium Potassium Chloride Carbon Dioxide BUN Creatinine Glucose POC Glucose 375 H 313 H 274 H Lactic Acid Calcium Phosphorus Magnesium Iron TIBC Transferrin Total Bilirubin Direct Bilirubin AST ALT Alkaline Phosphatase Lactate Dehydrogenase CK-MB (CK-2) Troponin T C-Reactive Protein Total Protein Albumin Triglycerides Cholesterol HDL Cholesterol Vitamin B12 Urine Creatinine Urine Total Protein Heparin-induced Plt Ab Hep Bs Antibody, Quant Crossmatch 12/16/16 12/16/16 12/16/16 08:26 09:12 17:13 WBC RBC Hgb Hct MCV MCHC RDW Plt Count Lymph % (Auto) [place] % (Auto) [place] # Baso # Seg Neutrophils % Seg Neuts % (Manual) Lymphocytes % (Manual) Monocytes % (Manual) Nucleated RBC % Seg Neutrophils # Seg Neutrophils # Man Lymphocytes # (Manual) Monocytes # (Manual) Percent Retic Haptoglobin PT INR Fibrinogen D-Dimer POC ABG pH POC ABG pCO2 POC ABG pO2 Sodium Potassium Chloride Carbon Dioxide BUN Creatinine Glucose POC Glucose 59 L 127 H > 500 H Lactic Acid Calcium Phosphorus Magnesium Iron TIBC Transferrin Total Bilirubin Direct Bilirubin AST ALT Alkaline Phosphatase Lactate Dehydrogenase CK-MB (CK-2) Troponin T C-Reactive Protein Total Protein Albumin Triglycerides Cholesterol HDL Cholesterol Vitamin B12 Urine Creatinine Urine Total Protein Heparin-induced Plt Ab Hep Bs Antibody, Quant Crossmatch 12/16/16 12/16/16 12/16/16 22:59 Unknown Unknown WBC 17.2 H RBC 2.83 L Hgb 7.9 L Hct 24.4 L MCV MCHC RDW Plt Count Lymph % (Auto) 9.2 L [place] % (Auto) [place] # 0.9 H Baso # Seg Neutrophils % 84.1 H Seg Neuts % (Manual) Lymphocytes % (Manual) Monocytes % (Manual) Nucleated RBC % Seg Neutrophils # 14.5 H Seg Neutrophils # Man Lymphocytes # (Manual) Monocytes # (Manual) Percent Retic Haptoglobin PT INR Fibrinogen D-Dimer POC ABG pH POC ABG pCO2 POC ABG pO2 Sodium Potassium Chloride Carbon Dioxide BUN 43 H Creatinine 5.4 H Glucose 131 H POC Glucose 320 H Lactic Acid Calcium 6.9 L Phosphorus Magnesium Iron TIBC Transferrin Total Bilirubin Direct Bilirubin AST ALT Alkaline Phosphatase Lactate Dehydrogenase CK-MB (CK-2) Troponin T C-Reactive Protein Total Protein Albumin Triglycerides Cholesterol HDL Cholesterol Vitamin B12 Urine Creatinine Urine Total Protein Heparin-induced Plt Ab Hep Bs Antibody, Quant Crossmatch 12/17/16 12/17/16 12/17/16 08:26 08:56 09:52 WBC RBC Hgb Hct MCV MCHC RDW Plt Count Lymph % (Auto) [place] % (Auto) [place] # Baso # Seg Neutrophils % Seg Neuts % (Manual) Lymphocytes % (Manual) Monocytes % (Manual) Nucleated RBC % Seg Neutrophils # Seg Neutrophils # Man Lymphocytes # (Manual) Monocytes # (Manual) Percent Retic Haptoglobin PT INR Fibrinogen D-Dimer POC ABG pH POC ABG pCO2 POC ABG pO2 Sodium Potassium Chloride Carbon Dioxide BUN Creatinine Glucose POC Glucose < 40 L 40 L 133 H Lactic Acid Calcium Phosphorus Magnesium Iron TIBC Transferrin Total Bilirubin Direct Bilirubin AST ALT Alkaline Phosphatase Lactate Dehydrogenase CK-MB (CK-2) Troponin T C-Reactive Protein Total Protein Albumin Triglycerides Cholesterol HDL Cholesterol Vitamin B12 Urine Creatinine Urine Total Protein Heparin-induced Plt Ab Hep Bs Antibody, Quant Crossmatch 12/17/16 12/17/16 12/17/16 12:51 16:08 21:00 WBC RBC Hgb Hct MCV MCHC RDW Plt Count Lymph % (Auto) [place] % (Auto) [place] # Baso # Seg Neutrophils % Seg Neuts % (Manual) Lymphocytes % (Manual) Monocytes % (Manual) Nucleated RBC % Seg Neutrophils # Seg Neutrophils # Man Lymphocytes # (Manual) Monocytes # (Manual) Percent Retic Haptoglobin PT INR Fibrinogen D-Dimer POC ABG pH POC ABG pCO2 POC ABG pO2 Sodium Potassium Chloride Carbon Dioxide BUN Creatinine Glucose POC Glucose 177 H 303 H 489 H Lactic Acid Calcium Phosphorus Magnesium Iron TIBC Transferrin Total Bilirubin Direct Bilirubin AST ALT Alkaline Phosphatase Lactate Dehydrogenase CK-MB (CK-2) Troponin T C-Reactive Protein Total Protein Albumin Triglycerides Cholesterol HDL Cholesterol Vitamin B12 Urine Creatinine Urine Total Protein Heparin-induced Plt Ab Hep Bs Antibody, Quant Crossmatch 12/17/16 12/17/16 12/18/16 Unknown Unknown 05:50 WBC 16.6 H 15.6 H RBC 2.63 L 2.58 L Hgb 7.5 L 7.3 L Hct 23.3 L 23.0 L MCV MCHC RDW 15.3 H 15.9 H Plt Count Lymph % (Auto) 7.7 L 8.7 L [place] % (Auto) [place] # 0.9 H Baso # Seg Neutrophils % 85.8 H 83.6 H Seg Neuts % (Manual) Lymphocytes % (Manual) Monocytes % (Manual) Nucleated RBC % Seg Neutrophils # 14.3 H 13.0 H Seg Neutrophils # Man Lymphocytes # (Manual) Monocytes # (Manual) Percent Retic Haptoglobin PT INR Fibrinogen D-Dimer POC ABG pH POC ABG pCO2 POC ABG pO2 Sodium Potassium 3.5 L Chloride Carbon Dioxide BUN 47 H Creatinine 5.2 H Glucose 173 H POC Glucose Lactic Acid Calcium 6.9 L Phosphorus Magnesium Iron TIBC Transferrin Total Bilirubin Direct Bilirubin AST ALT Alkaline Phosphatase Lactate Dehydrogenase CK-MB (CK-2) Troponin T C-Reactive Protein Total Protein Albumin Triglycerides Cholesterol HDL Cholesterol Vitamin B12 Urine Creatinine Urine Total Protein Heparin-induced Plt Ab Hep Bs Antibody, Quant Crossmatch 12/18/16 12/18/16 12/18/16 05:50 09:09 16:46 WBC RBC Hgb Hct MCV MCHC RDW Plt Count Lymph % (Auto) [place] % (Auto) [place] # Baso # Seg Neutrophils % Seg Neuts % (Manual) Lymphocytes % (Manual) Monocytes % (Manual) Nucleated RBC % Seg Neutrophils # Seg Neutrophils # Man Lymphocytes # (Manual) Monocytes # (Manual) Percent Retic Haptoglobin PT INR Fibrinogen D-Dimer POC ABG pH POC ABG pCO2 POC ABG pO2 Sodium Potassium Chloride Carbon Dioxide 17 L BUN 46 H Creatinine 5.0 H Glucose 252 H POC Glucose 349 H 324 H Lactic Acid Calcium 6.8 L Phosphorus Magnesium Iron TIBC Transferrin Total Bilirubin Direct Bilirubin AST ALT Alkaline Phosphatase Lactate Dehydrogenase CK-MB (CK-2) Troponin T C-Reactive Protein Total Protein Albumin Triglycerides Cholesterol HDL Cholesterol Vitamin B12 Urine Creatinine Urine Total Protein Heparin-induced Plt Ab Hep Bs Antibody, Quant Crossmatch 12/18/16 12/19/16 12/19/16 21:14 08:12 10:23 WBC 13.7 H RBC 2.60 L Hgb 7.5 L Hct 23.1 L MCV MCHC RDW 15.7 H Plt Count Lymph % (Auto) 9.1 L [place] % (Auto) [place] # 0.9 H Baso # Seg Neutrophils % 82.2 H Seg Neuts % (Manual) Lymphocytes % (Manual) Monocytes % (Manual) Nucleated RBC % Seg Neutrophils # 11.3 H Seg Neutrophils # Man Lymphocytes # (Manual) Monocytes # (Manual) Percent Retic Haptoglobin PT INR Fibrinogen D-Dimer POC ABG pH POC ABG pCO2 POC ABG pO2 Sodium Potassium Chloride Carbon Dioxide BUN Creatinine Glucose POC Glucose 316 H 464 H Lactic Acid Calcium Phosphorus Magnesium Iron TIBC Transferrin Total Bilirubin Direct Bilirubin AST ALT Alkaline Phosphatase Lactate Dehydrogenase CK-MB (CK-2) Troponin T C-Reactive Protein Total Protein Albumin Triglycerides Cholesterol HDL Cholesterol Vitamin B12 Urine Creatinine Urine Total Protein Heparin-induced Plt Ab Hep Bs Antibody, Quant Crossmatch 12/19/16 12/19/16 12/19/16 10:23 11:39 16:00 WBC RBC Hgb Hct MCV MCHC RDW Plt Count Lymph % (Auto) [place] % (Auto) [place] # Baso # Seg Neutrophils % Seg Neuts % (Manual) Lymphocytes % (Manual) Monocytes % (Manual) Nucleated RBC % Seg Neutrophils # Seg Neutrophils # Man Lymphocytes # (Manual) Monocytes # (Manual) Percent Retic Haptoglobin PT INR Fibrinogen D-Dimer POC ABG pH POC ABG pCO2 POC ABG pO2 Sodium Potassium 3.5 L Chloride Carbon Dioxide 14 L BUN 22 H Creatinine 3.2 H Glucose 446 H POC Glucose 344 H 467 H Lactic Acid Calcium 6.9 L Phosphorus 1.70 L D Magnesium Iron TIBC Transferrin Total Bilirubin Direct Bilirubin AST ALT Alkaline Phosphatase Lactate Dehydrogenase CK-MB (CK-2) Troponin T C-Reactive Protein Total Protein Albumin Triglycerides Cholesterol HDL Cholesterol Vitamin B12 Urine Creatinine Urine Total Protein Heparin-induced Plt Ab Hep Bs Antibody, Quant Crossmatch 12/19/16 12/19/16 12/19/16 16:35 16:35 21:16 WBC 19.3 H RBC 2.37 L Hgb 6.9 L Hct 21.8 L MCV MCHC RDW 16.7 H Plt Count Lymph % (Auto) [place] % (Auto) [place] # Baso # Seg Neutrophils % Seg Neuts % (Manual) Lymphocytes % (Manual) Monocytes % (Manual) Nucleated RBC % Seg Neutrophils # Seg Neutrophils # Man Lymphocytes # (Manual) Monocytes # (Manual) Percent Retic Haptoglobin PT INR Fibrinogen D-Dimer POC ABG pH POC ABG pCO2 POC ABG pO2 Sodium Potassium 3.4 L Chloride Carbon Dioxide 17 L BUN 23 H Creatinine 3.2 H Glucose 427 H POC Glucose 397 H Lactic Acid Calcium 6.9 L Phosphorus 2.40 L D Magnesium Iron TIBC Transferrin Total Bilirubin Direct Bilirubin AST ALT Alkaline Phosphatase Lactate Dehydrogenase CK-MB (CK-2) Troponin T C-Reactive Protein Total Protein Albumin Triglycerides Cholesterol HDL Cholesterol Vitamin B12 Urine Creatinine Urine Total Protein Heparin-induced Plt Ab Hep Bs Antibody, Quant Crossmatch 12/20/16 12/20/16 12/20/16 06:00 06:00 07:55 WBC 17.5 H RBC 2.54 L Hgb 7.3 L Hct 23.5 L MCV MCHC RDW 16.4 H Plt Count Lymph % (Auto) 9.0 L [place] % (Auto) [place] # 1.1 H Baso # Seg Neutrophils % 83.0 H Seg Neuts % (Manual) Lymphocytes % (Manual) Monocytes % (Manual) Nucleated RBC % Seg Neutrophils # 14.5 H Seg Neutrophils # Man Lymphocytes # (Manual) Monocytes # (Manual) Percent Retic Haptoglobin PT INR Fibrinogen D-Dimer POC ABG pH POC ABG pCO2 POC ABG pO2 Sodium 136 L Potassium Chloride 92.4 L Carbon Dioxide 15 L BUN Creatinine 2.6 H Glucose 475 H POC Glucose > 500 H Lactic Acid Calcium Phosphorus Magnesium Iron TIBC Transferrin Total Bilirubin Direct Bilirubin AST ALT Alkaline Phosphatase Lactate Dehydrogenase CK-MB (CK-2) Troponin T C-Reactive Protein Total Protein Albumin Triglycerides Cholesterol HDL Cholesterol Vitamin B12 Urine Creatinine Urine Total Protein Heparin-induced Plt Ab Hep Bs Antibody, Quant Crossmatch 12/20/16 12/20/16 12/20/16 11:21 16:01 22:33 WBC RBC Hgb Hct MCV MCHC RDW Plt Count Lymph % (Auto) [place] % (Auto) [place] # Baso # Seg Neutrophils % Seg Neuts % (Manual) Lymphocytes % (Manual) Monocytes % (Manual) Nucleated RBC % Seg Neutrophils # Seg Neutrophils # Man Lymphocytes # (Manual) Monocytes # (Manual) Percent Retic Haptoglobin PT INR Fibrinogen D-Dimer POC ABG pH POC ABG pCO2 POC ABG pO2 Sodium Potassium Chloride Carbon Dioxide BUN Creatinine Glucose POC Glucose > 500 H 446 H > 500 H Lactic Acid Calcium Phosphorus Magnesium Iron TIBC Transferrin Total Bilirubin Direct Bilirubin AST ALT Alkaline Phosphatase Lactate Dehydrogenase CK-MB (CK-2) Troponin T C-Reactive Protein Total Protein Albumin Triglycerides Cholesterol HDL Cholesterol Vitamin B12 Urine Creatinine Urine Total Protein Heparin-induced Plt Ab Hep Bs Antibody, Quant Crossmatch 12/20/16 12/20/16 12/21/16 22:37 23:00 00:48 WBC RBC Hgb Hct MCV MCHC RDW Plt Count Lymph % (Auto) [place] % (Auto) [place] # Baso # Seg Neutrophils % Seg Neuts % (Manual) Lymphocytes % (Manual) Monocytes % (Manual) Nucleated RBC % Seg Neutrophils # Seg Neutrophils # Man Lymphocytes # (Manual) Monocytes # (Manual) Percent Retic Haptoglobin PT INR Fibrinogen D-Dimer POC ABG pH POC ABG pCO2 POC ABG pO2 Sodium 128 L D Potassium Chloride 83.2 L Carbon Dioxide 11 L BUN 32 H Creatinine 3.5 H Glucose 822 H* POC Glucose > 500 H > 500 H Lactic Acid Calcium 8.2 L Phosphorus Magnesium Iron TIBC Transferrin Total Bilirubin Direct Bilirubin AST ALT Alkaline Phosphatase Lactate Dehydrogenase CK-MB (CK-2) Troponin T C-Reactive Protein Total Protein Albumin Triglycerides Cholesterol HDL Cholesterol Vitamin B12 Urine Creatinine Urine Total Protein Heparin-induced Plt Ab Hep Bs Antibody, Quant Crossmatch 12/21/16 12/21/16 12/21/16 03:17 05:00 05:00 WBC 15.7 H RBC 2.32 L Hgb 6.8 L Hct 20.6 L MCV MCHC RDW 16.3 H Plt Count Lymph % (Auto) 11.5 L [place] % (Auto) 7.4 H [place] # 1.2 H Baso # Seg Neutrophils % 78.7 H Seg Neuts % (Manual) Lymphocytes % (Manual) Monocytes % (Manual) Nucleated RBC % Seg Neutrophils # 12.4 H Seg Neutrophils # Man Lymphocytes # (Manual) Monocytes # (Manual) Percent Retic Haptoglobin PT INR Fibrinogen D-Dimer POC ABG pH POC ABG pCO2 POC ABG pO2 Sodium Potassium Chloride 95.3 L Carbon Dioxide 20 L D BUN 32 H Creatinine 3.7 H Glucose 243 H POC Glucose 428 H Lactic Acid Calcium 8.1 L Phosphorus Magnesium Iron TIBC 193.20 L Transferrin 138 L Total Bilirubin Direct Bilirubin AST ALT Alkaline Phosphatase Lactate Dehydrogenase CK-MB (CK-2) Troponin T C-Reactive Protein Total Protein Albumin Triglycerides Cholesterol HDL Cholesterol Vitamin B12 Urine Creatinine Urine Total Protein Heparin-induced Plt Ab Hep Bs Antibody, Quant Crossmatch 12/21/16 12/21/16 12/21/16 05:40 06:49 08:20 WBC RBC Hgb Hct MCV MCHC RDW Plt Count Lymph % (Auto) [place] % (Auto) [place] # Baso # Seg Neutrophils % Seg Neuts % (Manual) Lymphocytes % (Manual) Monocytes % (Manual) Nucleated RBC % Seg Neutrophils # Seg Neutrophils # Man Lymphocytes # (Manual) Monocytes # (Manual) Percent Retic Haptoglobin PT INR Fibrinogen D-Dimer POC ABG pH POC ABG pCO2 POC ABG pO2 Sodium Potassium Chloride Carbon Dioxide BUN Creatinine Glucose POC Glucose 271 H 236 H 222 H Lactic Acid Calcium Phosphorus Magnesium Iron TIBC Transferrin Total Bilirubin Direct Bilirubin AST ALT Alkaline Phosphatase Lactate Dehydrogenase CK-MB (CK-2) Troponin T C-Reactive Protein Total Protein Albumin Triglycerides Cholesterol HDL Cholesterol Vitamin B12 Urine Creatinine Urine Total Protein Heparin-induced Plt Ab Hep Bs Antibody, Quant Crossmatch 12/21/16 12/21/16 12/21/16 16:28 18:26 21:10 WBC RBC Hgb Hct MCV MCHC RDW Plt Count Lymph % (Auto) [place] % (Auto) [place] # Baso # Seg Neutrophils % Seg Neuts % (Manual) Lymphocytes % (Manual) Monocytes % (Manual) Nucleated RBC % Seg Neutrophils # Seg Neutrophils # Man Lymphocytes # (Manual) Monocytes # (Manual) Percent Retic Haptoglobin PT INR Fibrinogen D-Dimer POC ABG pH POC ABG pCO2 POC ABG pO2 Sodium Potassium Chloride Carbon Dioxide BUN Creatinine Glucose POC Glucose < 40 L 62 L 255 H Lactic Acid Calcium Phosphorus Magnesium Iron TIBC Transferrin Total Bilirubin Direct Bilirubin AST ALT Alkaline Phosphatase Lactate Dehydrogenase CK-MB (CK-2) Troponin T C-Reactive Protein Total Protein Albumin Triglycerides Cholesterol HDL Cholesterol Vitamin B12 Urine Creatinine Urine Total Protein Heparin-induced Plt Ab Hep Bs Antibody, Quant Crossmatch 12/22/16 12/22/16 12/22/16 03:38 06:45 06:45 WBC 17.4 H RBC 2.26 L Hgb 6.6 L Hct 20.5 L MCV MCHC RDW 15.7 H Plt Count Lymph % (Auto) 8.1 L [place] % (Auto) [place] # 0.9 H Baso # 0.2 H Seg Neutrophils % 84.3 H Seg Neuts % (Manual) Lymphocytes % (Manual) Monocytes % (Manual) Nucleated RBC % Seg Neutrophils # 14.6 H Seg Neutrophils # Man Lymphocytes # (Manual) Monocytes # (Manual) Percent Retic Haptoglobin PT INR Fibrinogen D-Dimer POC ABG pH POC ABG pCO2 POC ABG pO2 Sodium Potassium 3.3 L Chloride 95.5 L Carbon Dioxide 20 L BUN Creatinine 2.5 H Glucose 308 H POC Glucose 430 H Lactic Acid Calcium 8.2 L Phosphorus Magnesium Iron TIBC Transferrin Total Bilirubin Direct Bilirubin AST ALT Alkaline Phosphatase Lactate Dehydrogenase CK-MB (CK-2) Troponin T C-Reactive Protein Total Protein Albumin Triglycerides Cholesterol HDL Cholesterol Vitamin B12 Urine Creatinine Urine Total Protein Heparin-induced Plt Ab Hep Bs Antibody, Quant Crossmatch 12/22/16 12/22/16 12/22/16 08:31 12:50 15:46 WBC RBC Hgb Hct MCV MCHC RDW Plt Count Lymph % (Auto) [place] % (Auto) [place] # Baso # Seg Neutrophils % Seg Neuts % (Manual) Lymphocytes % (Manual) Monocytes % (Manual) Nucleated RBC % Seg Neutrophils # Seg Neutrophils # Man Lymphocytes # (Manual) Monocytes # (Manual) Percent Retic Haptoglobin PT INR Fibrinogen D-Dimer POC ABG pH POC ABG pCO2 POC ABG pO2 Sodium Potassium Chloride Carbon Dioxide BUN Creatinine Glucose POC Glucose 306 H 391 H Lactic Acid Calcium Phosphorus Magnesium Iron TIBC Transferrin Total Bilirubin Direct Bilirubin AST ALT Alkaline Phosphatase Lactate Dehydrogenase CK-MB (CK-2) Troponin T C-Reactive Protein Total Protein Albumin Triglycerides Cholesterol HDL Cholesterol Vitamin B12 Urine Creatinine Urine Total Protein Heparin-induced Plt Ab Hep Bs Antibody, Quant Crossmatch See Detail 12/22/16 17:13 WBC RBC Hgb Hct MCV MCHC RDW Plt Count Lymph % (Auto) [place] % (Auto) [place] # Baso # Seg Neutrophils % Seg Neuts % (Manual) Lymphocytes % (Manual) Monocytes % (Manual) Nucleated RBC % Seg Neutrophils # Seg Neutrophils # Man Lymphocytes # (Manual) Monocytes # (Manual) Percent Retic Haptoglobin PT INR Fibrinogen D-Dimer POC ABG pH POC ABG pCO2 POC ABG pO2 Sodium Potassium Chloride Carbon Dioxide BUN Creatinine Glucose POC Glucose > 500 H Lactic Acid Calcium Phosphorus Magnesium Iron TIBC Transferrin Total Bilirubin Direct Bilirubin AST ALT Alkaline Phosphatase Lactate Dehydrogenase CK-MB (CK-2) Troponin T C-Reactive Protein Total Protein Albumin Triglycerides Cholesterol HDL Cholesterol Vitamin B12 Urine Creatinine Urine Total Protein Heparin-induced Plt Ab Hep Bs Antibody, Quant Crossmatch
[2016-12-22] MEDS ORDERED: NACL 0.9% 250ML 250 ML ONE (20:10)
[2016-12-22] MEDS: BENADRYL PO PRN (23:10)
[2016-12-23 07:19] LABS: Hematocrit 24.8 % (30.3-42.9); Hemoglobin 8.1 gm/dl (10.1-14.3); Mean Corpuscular HGB Conc 33 % (30-34); Mean Corpuscular Hemoglobin 29 pg (28-32); Mean Corpuscular Volume 90 fl (79-97); Platelet Count 241 K/mm3 (140-440); Red Blood Count 2.75 M/mm3 (3.65-5.03); Red Cell Distribution Width 17.1 % (13.2-15.2); White Blood Count 17.9 K/mm3 (4.5-11.0)
[2016-12-23 07:27] LABS: BUN/Creatinine Ratio 7.58; Calcium 8.3 mg/dL (8.4-10.2); Chloride 94.7 mmol/L (98-107); Potassium 3.5 mmol/L (3.6-5.0)
[2016-12-23] MEDS: NOVOLOG SUB-Q SCH ×4 (08:28→22:23)
--- NOTE | 2016-12-23 08:40 | Progress Note ---
Assessment and Plan - Patient Problems (1) Leukocytosis Current Visit: Yes Status: Acute Qualifiers: Leukocytosis type: L Plan to address problem: 1. Monitor permcath site for signs of infection. 2. Follow clinically off antibiotics for now. (2) Acute respiratory failure with hypoxemia Current Visit: No Status: Acute Plan to address problem: Per above. Subjective Date of service: 12/23/16 Principal diagnosis: Sepsis; Pneumonia; ASHELY on dialysis; Diabetes Interval history: Afebrile, although patient maintains an elevated WBC > 17K. She says her permcath site "joseph". It has been that way since its insertion and has not improved with time. Objective - Constitutional Vitals: Vital Signs Temp Pulse Resp BP Pulse Ox 98.7 F 105 H 20 111/58 100 12/23/16 07:00 12/23/16 07:00 12/23/16 07:00 12/23/16 07:00 12/23/16 07:00 Temperature -Last 24 Hours Temperature 98.7 F Temperature 98.0 F Temperature 98.3 F Temperature 98.6 F Temperature 98.3 F Temperature 99.1 F Temperature 98.1 F Temperature 98.9 F Temperature 98.4 F Temperature 99 F Temperature 99 F Temperature 99.1 F Temperature 98.8 F General appearance: Present: no acute distress - Respiratory Respiratory effort: normal Respiratory: bilateral: CTA - Cardiovascular Rhythm: regular Heart Sounds: Present: S1 & S2 Extremities: No edema - Gastrointestinal General gastrointestinal: Present: soft, non-tender, non-distended - Integumentary Integumentary: clear, no rash - Neurologic Neurologic: moves all extremities - Additional findings Additional findings: right subclavian permcath without surrounding erythema - Labs CBC & Chem 7: 12/23/16 06:42 12/23/16 06:42 Labs: Abnormal lab results 12/22/16 12/22/16 12/22/16 Range/Units 08:31 12:50 15:46 WBC (4.5-11.0) K/mm3 RBC (3.65-5.03) M/mm3 Hgb (10.1-14.3) gm/dl Hct (30.3-42.9) % RDW (13.2-15.2) % Potassium (3.6-5.0) mmol/L Chloride (98-107) mmol/L Carbon Dioxide (22-30) mmol/L BUN (7-17) mg/dL Creatinine (0.7-1.2) mg/dL Glucose (65-100) mg/dL POC Glucose 306 H 391 H (70-105) Calcium (8.4-10.2) mg/dL Crossmatch See Detail 12/22/16 12/22/16 12/23/16 Range/Units 17:13 21:45 06:42 WBC 17.9 H (4.5-11.0) K/mm3 RBC 2.75 L (3.65-5.03) M/mm3 Hgb 8.1 L (10.1-14.3) gm/dl Hct 24.8 L (30.3-42.9) % RDW 17.1 H (13.2-15.2) % Potassium (3.6-5.0) mmol/L Chloride (98-107) mmol/L Carbon Dioxide (22-30) mmol/L BUN (7-17) mg/dL Creatinine (0.7-1.2) mg/dL Glucose (65-100) mg/dL POC Glucose > 500 H 449 H (70-105) Calcium (8.4-10.2) mg/dL Crossmatch 12/23/16 Range/Units 06:42 WBC (4.5-11.0) K/mm3 RBC (3.65-5.03) M/mm3 Hgb (10.1-14.3) gm/dl Hct (30.3-42.9) % RDW (13.2-15.2) % Potassium 3.5 L (3.6-5.0) mmol/L Chloride 94.7 L (98-107) mmol/L Carbon Dioxide 19 L (22-30) mmol/L BUN 22 H (7-17) mg/dL Creatinine 2.9 H (0.7-1.2) mg/dL Glucose 401 H (65-100) mg/dL POC Glucose (70-105) Calcium 8.3 L (8.4-10.2) mg/dL Crossmatch Microbiology 12/11/16 10:24 Central Venous Line Blood Culture - Final NO GROWTH AFTER 5 DAYS 12/05/16 05:19 Peripheral/Venous Blood Culture - Final NO GROWTH AFTER 5 DAYS 12/05/16 04:44 Peripheral/Venous Blood Culture - Final NO GROWTH AFTER 5 DAYS 12/03/16 23:20 Peripheral/Venous Blood Culture - Final Coag Negative Staphylococcus 12/06/16 21:55 Tracheal Aspirate Sputum Culture - Final Pseudomonas Aeruginosa 12/03/16 23:20 Peripheral/Venous Blood Culture - Final NO GROWTH AFTER 5 DAYS 12/04/16 01:05 Tracheal Aspirate Sputum Culture - Final
--- NOTE | 2016-12-23 09:59 | Progress Note ---
Assessment and Plan Assessment and plan: Cardiac arrest with V. fib - Likely from hyperkalemia, currently patient is stable. Was treated with amiodarone - No recurrence Acute kidney injury secondary to ATN - Nephrology is following, she is going to continue hemodialysis. Will need outpatient hemodialysis arranged. Metabolic Acidosis, resolved. Acute hypoxic respiratory failure. Resolved. Now extubated DKA: - resolved - On sliding insulin Acute metabolic encephalopathy, resolved Leukocytosis +GNR in trach aspirate, pseudomonas aeruginosa - Completed PO levaquin - ID is following -DVT prophylaxis: SCDs only due to recent SAH Thrombocytopenia - Resolved Acute on chronic anemia of chronic disease - Hemoglobin is 8.1 today after 2 Units PRBC yesterday Depression - Psych consulted and recommend O/P mental health follow up. Disposition - Patient needs O/P dialysis set up. History Interval history: No chest pain, No SOB Hospitalist Physical - Physical exam Narrative exam: Gen Appearance: No acute distress, morbidly obese HEENT: normocephalic, atraumatic Neck: supple, no JVD Lungs: Clear to auscultation bilaterally, no wheeze. Heart: S1 and S2 regular, no murmurs or gallop Abdomen: Soft non-tender, non-distended, normal bowel sounds Extremity: No edema, clubbing or cyanosis Neuro : Awake, alert,oriented, moves all ext - Constitutional Vitals: Temp Pulse Resp BP Pulse Ox 98.7 F 105 H 20 111/58 100 12/23/16 07:00 12/23/16 07:00 12/23/16 07:00 12/23/16 07:00 12/23/16 07:00 General appearance: Present: no acute distress (resting comfortably) Results - Labs CBC & Chem 7: 12/23/16 06:42 12/23/16 06:42 Labs: Laboratory Last Values WBC 17.9 K/mm3 (4.5-11.0) H 12/23/16 06:42 RBC 2.75 M/mm3 (3.65-5.03) L 12/23/16 06:42 Hgb 8.1 gm/dl (10.1-14.3) L 12/23/16 06:42 Hct 24.8 % (30.3-42.9) L 12/23/16 06:42 MCV 90 fl (79-97) 12/23/16 06:42 MCH 29 pg (28-32) 12/23/16 06:42 MCHC 33 % (30-34) 12/23/16 06:42 RDW 17.1 % (13.2-15.2) H 12/23/16 06:42 Plt Count 241 K/mm3 (140-440) 12/23/16 06:42 Lymph % (Auto) 8.1 % (13.4-35.0) L 12/22/16 06:45 Barton % (Auto) 5.3 % (0.0-7.3) 12/22/16 06:45 Eos % (Auto) 1.4 % (0.0-4.3) 12/22/16 06:45 Baso % (Auto) 0.9 % (0.0-1.8) 12/22/16 06:45 Lymph # 1.4 K/mm3 (1.2-5.4) 12/22/16 06:45 Barton # 0.9 K/mm3 (0.0-0.8) H 12/22/16 06:45 Eos # 0.2 K/mm3 (0.0-0.4) 12/22/16 06:45 Baso # 0.2 K/mm3 (0.0-0.1) H 12/22/16 06:45 Add Manual Diff Complete 12/13/16 07:49 Total Counted 100 12/13/16 07:49 Seg Neutrophils % 84.3 % (40.0-70.0) H 12/22/16 06:45 Seg Neuts % (Manual) 89.0 % (40.0-70.0) H 12/13/16 07:49 Band Neutrophils % 1.0 % 12/13/16 07:49 Lymphocytes % (Manual) 7.0 % (13.4-35.0) L 12/13/16 07:49 Reactive Lymphs % (Man) 0 % 12/13/16 07:49 Monocytes % (Manual) 3.0 % (0.0-7.3) 12/13/16 07:49 Eosinophils % (Manual) 0 % (0.0-4.3) 12/13/16 07:49 Basophils % (Manual) 0 % (0.0-1.8) 12/13/16 07:49 Metamyelocytes % 0 % 12/13/16 07:49 Myelocytes % 0 % 12/13/16 07:49 Promyelocytes % 0 % 12/13/16 07:49 Blast Cells % 0 % 12/13/16 07:49 Nucleated RBC % Not Reportable 12/13/16 07:49 Seg Neutrophils # 14.6 K/mm3 (1.8-7.7) H 12/22/16 06:45 Seg Neutrophils # Man 21.4 K/mm3 (1.8-7.7) H 12/13/16 07:49 Band Neutrophils # 0.2 K/mm3 12/13/16 07:49 Lymphocytes # (Manual) 1.7 K/mm3 (1.2-5.4) 12/13/16 07:49 Abs React Lymphs (Man) 0.0 K/mm3 12/13/16 07:49 Monocytes # (Manual) 0.7 K/mm3 (0.0-0.8) 12/13/16 07:49 Eosinophils # (Manual) 0.0 K/mm3 (0.0-0.4) 12/13/16 07:49 Basophils # (Manual) 0.0 K/mm3 (0.0-0.1) 12/13/16 07:49 Metamyelocytes # 0.0 K/mm3 12/13/16 07:49 Myelocytes # 0.0 K/mm3 12/13/16 07:49 Promyelocytes # 0.0 K/mm3 12/13/16 07:49 Blast Cells # 0.0 K/mm3 12/13/16 07:49 WBC Morphology Not Reportable 12/13/16 07:49 Hypersegmented Neuts Not Reportable 12/13/16 07:49 Hyposegmented Neuts Not Reportable 12/13/16 07:49 Hypogranular Neuts Not Reportable 12/13/16 07:49 Smudge Cells Not Reportable 12/13/16 07:49 Toxic Granulation Not Reportable 12/13/16 07:49 Toxic Vacuolation Not Reportable 12/13/16 07:49 Dohle Bodies Not Reportable 12/13/16 07:49 Pelger-Huet Anomaly Not Reportable 12/13/16 07:49 Mary Rods Not Reportable 12/13/16 07:49 Platelet Estimate Cons 12/13/16 07:49 Clumped Platelets Not Reportable 12/13/16 07:49 Plt Clumps, EDTA Not Reportable 12/13/16 07:49 Large Platelets Rare 12/13/16 07:49 Giant Platelets Not Reportable 12/13/16 07:49 Platelet Satelliting Not Reportable 12/13/16 07:49 Plt Morphology Comment Not Reportable 12/13/16 07:49 RBC Morphology Not Reportable 12/13/16 07:49 Dimorphic RBCs Not Reportable 12/13/16 07:49 Polychromasia Not Reportable 12/13/16 07:49 Hypochromasia 1+ 12/13/16 07:49 Poikilocytosis Not Reportable 12/13/16 07:49 Anisocytosis 1+ 12/13/16 07:49 Microcytosis Not Reportable 12/13/16 07:49 Macrocytosis Not Reportable 12/13/16 07:49 Spherocytes Not Reportable 12/13/16 07:49 Pappenheimer Bodies Not Reportable 12/13/16 07:49 Sickle Cells Not Reportable 12/13/16 07:49 Target Cells Few 12/13/16 07:49 Tear Drop Cells Not Reportable 12/13/16 07:49 Ovalocytes Not Reportable 12/13/16 07:49 Helmet Cells Not Reportable 12/13/16 07:49 [place] Bodies Not Reportable 12/13/16 07:49 [place] Rings Not Reportable 12/13/16 07:49 Jerri Cells Not Reportable 12/13/16 07:49 Bite Cells Not Reportable 12/13/16 07:49 Crenated Cell Not Reportable 12/13/16 07:49 Elliptocytes Not Reportable 12/13/16 07:49 Acanthocytes (Spur) Not Reportable 12/13/16 07:49 Rouleaux Not Reportable 12/13/16 07:49 Hemoglobin C Crystals Not Reportable 12/13/16 07:49 Schistocytes Not Reportable 12/13/16 07:49 Malaria parasites Not Reportable 12/13/16 07:49 Percent Retic 0.23 % (0.78-2.58) L 12/09/16 11:29 Michael Bodies Not Reportable 12/13/16 07:49 Haptoglobin 271 mg/dL (43-212) H 12/08/16 21:30 Hem Pathologist Commnt No 12/13/16 07:49 PT 15.3 Sec. (12.2-14.9) H 12/08/16 19:00 INR 1.22 (0.87-1.13) H 12/08/16 19:00 APTT 36.2 Sec. (24.2-36.6) 12/08/16 19:00 Fibrinogen 563 mg/dl (211-480) H 12/08/16 19:00 D-Dimer 5507.36 ng/mlDDU (0-234) H 12/08/16 19:00 Heparin Anti-Xa, Unfract Negative (Negative) 12/09/16 13:27 POC ABG pH 7.326 (7.35-7.45) L 12/09/16 12:02 POC ABG pCO2 37.7 (35-45) 12/09/16 12:02 POC ABG pO2 115 (80-105) H 12/09/16 12:02 POC ABG HCO3 19.7 12/09/16 12:02 POC ABG Total CO2 21 12/09/16 12:02 POC ABG O2 Sat 98 12/09/16 12:02 POC ABG Base Excess -6 12/09/16 12:02 FiO2 30 % 12/09/16 12:02 Sodium 138 mmol/L (137-145) 12/23/16 06:42 Potassium 3.5 mmol/L (3.6-5.0) L 12/23/16 06:42 Chloride 94.7 mmol/L (98-107) L 12/23/16 06:42 Carbon Dioxide 19 mmol/L (22-30) L 12/23/16 06:42 Anion Gap 28 mmol/L 12/23/16 06:42 BUN 22 mg/dL (7-17) H 12/23/16 06:42 Creatinine 2.9 mg/dL (0.7-1.2) H 12/23/16 06:42 Estimated GFR 21 ml/min 12/23/16 06:42 BUN/Creatinine Ratio 7.58 % 12/23/16 06:42 Glucose 401 mg/dL (65-100) H 12/23/16 06:42 POC Glucose 449 (70-105) H 12/23/16 07:46 Lactic Acid 6.90 mmol/L (0.7-2.0) H* 12/07/16 07:30 Calcium 8.3 mg/dL (8.4-10.2) L 12/23/16 06:42 Phosphorus 3.70 mg/dL (2.5-4.5) 12/21/16 05:00 Magnesium 1.90 mg/dL (1.7-2.3) 12/11/16 04:30 Iron 66 ug/dL (37-170) 12/21/16 05:00 TIBC 193.20 mcg/dL (250-450) L 12/21/16 05:00 Transferrin 138 mg/dl (192-382) L 12/21/16 05:00 Ferritin 321.4 ng/mL (13.0-400.0) 12/21/16 05:00 Total Bilirubin 1.40 mg/dL (0.1-1.2) H 12/07/16 21:35 Direct Bilirubin 0.9 mg/dL (0-0.2) H 12/07/16 21:35 Indirect Bilirubin 0.5 mg/dL 12/07/16 21:35 AST 94 units/L (5-40) H 12/07/16 21:35 ALT 142 units/L (7-56) H 12/07/16 21:35 Alkaline Phosphatase 249 units/L (35-129) H 12/07/16 21:35 Lactate Dehydrogenase 382 units/L (91-180) H 12/08/16 19:00 Total Creatine Kinase 123 units/L (30-135) 12/04/16 09:55 CK-MB (CK-2) 4.6 ng/mL (0.0-4.0) H 12/04/16 09:55 CK-MB (CK-2) Rel Index 3.7 (0-4) 12/04/16 09:55 Troponin T 0.140 ng/mL (0.00-0.029) H* D 12/04/16 09:55 C-Reactive Protein 39.40 mg/dL (0.00-1.30) H 12/07/16 06:00 Total Protein 4.6 g/dL (6.3-8.2) L D 12/07/16 21:35 Albumin 2.1 g/dL (3.9-5) L 12/07/16 21:35 Albumin/Globulin Ratio 0.8 % 12/07/16 21:35 Triglycerides 570 mg/dL (2-149) H 12/04/16 07:55 Cholesterol 221 mg/dL (50-199) H 12/04/16 07:55 LDL Cholesterol Direct TNR 12/04/16 07:55 HDL Cholesterol 37 mg/dL (40-59) L 12/04/16 07:55 Cholesterol/HDL Ratio 5.97 % 12/04/16 07:55 Vitamin B12 > 2000 pg/mL (211-911) H 12/09/16 13:27 Folate 8.10 ng/mL (7.3-26.0) 12/09/16 13:27 TSH 1.600 mlU/mL (0.270-4.200) 12/03/16 23:20 Urine Color Yellow (Yellow) 12/04/16 11:25 Urine Turbidity Slightly-cloudy (Clear) 12/04/16 11:25 Urine pH 5.0 (5.0-7.0) 12/04/16 11:25 Ur Specific [place] 1.018 (1.003-1.030) 12/04/16 11:25 Urine Protein 30 mg/dl mg/dL (Negative) 12/04/16 11:25 Urine Glucose (UA) >=500 mg/dL (Negative) 12/04/16 11:25 Urine Ketones Tr mg/dL (Negative) 12/04/16 11:25 Urine Blood Sm (Negative) 12/04/16 11:25 Urine Nitrite Neg (Negative) 12/04/16 11:25 Urine Bilirubin Neg (Negative) 12/04/16 11:25 Urine Urobilinogen < 2.0 mg/dL (<2.0) 12/04/16 11:25 Ur Leukocyte Esterase Neg (Negative) 12/04/16 11:25 Urine WBC (Auto) 4.0 /HPF (0.0-6.0) 12/04/16 11:25 Urine RBC (Auto) 2.0 /HPF (0.0-6.0) 12/04/16 11:25 U Epithel Cells (Auto) < 1.0 /HPF (0-13.0) 12/04/16 11:25 Urine Mucus Few /HPF 12/04/16 11:25 Urine Osmolality 419 Mosm/kg 12/04/16 11:25 Urine Creatinine 29.5 mg/dL (0.1-20.0) H 12/04/16 11:25 Protein/Creatinin Ratio 1.12 12/04/16 11:25 Urine Sodium 26 mEq/L 12/04/16 11:25 Urine Total Protein 33 mg/dL (5-11.8) H 12/04/16 11:25 Urine Opiates Screen Presumptive negative 12/04/16 11:25 Urine Methadone Screen Presumptive negative 12/04/16 11:25 Ur Barbiturates Screen Presumptive negative 12/04/16 11:25 Ur Phencyclidine Scrn Presumptive negative 12/04/16 11:25 Ur Amphetamines Screen Presumptive negative 12/04/16 11:25 U Benzodiazepines Scrn Presumptive negative 12/04/16 11:25 Urine Cocaine Screen Presumptive negative 12/04/16 11:25 U Marijuana (THC) Screen Presumptive positive 12/04/16 11:25 Drugs of Abuse Note Disclamer 12/04/16 11:25 Heparin-induced Plt Ab Weak positive (Negative) H 12/09/16 13:27 UF Heparin High Dose 0 % Release 12/09/16 13:27 ADRIENNE UFH Low Dose 0.1 0 % Release 12/09/16 13:27 ADRIENNE UFH Low Dose 0.5 0 % Release 12/09/16 13:27 Hep Bs Antigen Non-reactive (Negative) 12/09/16 13:27 Hep Bs Antibody, Quant <5 mIU/mL (>=10) L 12/09/16 13:27 Hep B Core Total Ab Nonreactive (Nonreactive) 12/09/16 13:27 Hepatitis C Antibody Non-reactive (NonReactive) 12/09/16 13:27 HIV 1&2 Antibody Rapid Non react (Non React) 12/09/16 13:27 HIV P24 Antigen Non react (Non React) 12/09/16 13:27 Schistocytes Smear None seen 12/09/16 11:29 Blood Type O POSITIVE 12/22/16 15:46 Antibody Screen TNR 12/22/16 15:46 ISAIAH Antibody Screen Negative 12/22/16 15:46 Crossmatch See Detail 12/22/16 15:46
--- NOTE | 2016-12-23 10:35 | XRay Report ---
CHEST 2 VIEWS INDICATION: Pulmonary infiltrate. COMPARISON: 12/16/2016 FINDINGS: Frontal and lateral chest radiographs demonstrate approximately 4.5 x 3.8 cm somewhat wedge-shaped peripheral right mid lung pneumonia, slightly smaller. New/increased opacity at the right lung base partly obscures the hemidiaphragm and right lateral costophrenic angle, representing atelectasis/consolidation. Stable cardiomediastinal silhouette. Approximately 2 cm left mid to lower lung opacity may partly obscure the left heart border. No significant left pleural effusion, though minimal right pleural fluid not excluded. No CHF. Stable left upper extremity PICC while a new right-sided dual-lumen catheter now noted, its tip approximately 5 cm below the cavoatrial junction in the right atrium. Stable bones. CONCLUSION: 1. New/increased right basilar opacity/infiltrate/volume loss with improving right mid lung pneumonia, as described. 2. New right sided central catheter. Stable left upper extremity PICC. Thank you for the opportunity to participate in this patient's care.
[2016-12-23] MEDS: PEPCID PO SCH (12:54)
[2016-12-23] MEDS: LOPRESSOR PO SCH ×2 (12:55→21:51)
[2016-12-23] MEDS: LOVENOX SUB-Q SCH (12:57)
--- NOTE | 2016-12-23 13:58 | Progress Note ---
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 Now on sliding scale insulin as per Primary team (2) Acute kidney failure with tubular necrosis Current Visit: No Status: Acute Plan to address problem: Hemodialysis today for UF and clearance Monitor I/O's Renally dose medications Obtain daily weights Renal diet (3) Hypertensive chronic kidney disease Current Visit: Yes Status: Acute Plan to address problem: Continue on anti-hypertensive agent. On Metoprolol. (4) Leukocytosis Current Visit: Yes Status: Acute Qualifiers: Leukocytosis type: L Plan to address problem: As per ID (5) Anemia Current Visit: Yes Status: Acute Qualifiers: Anemia type: A Iron deficiency anemia type: I Vitamin B12 deficiency anemia type: V Folate deficiency anemia type: F Bone marrow failure anemia type: B Hemolytic anemia type: H Other causes of anemia: O Chronic kidney disease stage: C Plan to address problem: On Epogen 20,000 units with HD Subjective Date of service: 12/23/16 Principal diagnosis: Sepsis; Pneumonia; ASHELY on dialysis; Diabetes Interval history: Patient seen lying in bed. Awake and alert. Objective - Vital Signs Vital signs: Vital Signs - 12hr 12/23/16 12/23/16 12/23/16 05:27 07:00 11:37 Temperature 98.0 F 98.7 F 98.3 F Pulse Rate [ 103 H 105 H 105 H Right Radial] Respiratory 20 20 20 Rate Blood Pressure 100/59 111/58 153/89 [Right Arm] O2 Sat by Pulse 96 100 100 Oximetry - General Appearance General appearance: well-developed, appears stated age EENT: ATNC, PERRL, hearing intact, vision intact Neck: no JVD, supple Respiratory: Present: Decreased Breath Sounds Cardiology: tachycardia, S1S2 Gastrointestinal: normoactive bowel sounds Integumentary: warm and dry Neurologic: alert and oriented x3 Musculoskeletal: other (No edema. Right IJ perm-catheter intact) Psychiatric: cooperative - Lab 12/23/16 06:42 12/23/16 06:42 Most recent lab results Calcium 8.3 mg/dL (8.4-10.2) L 12/23/16 06:42 Phosphorus 3.70 mg/dL (2.5-4.5) 12/21/16 05:00 Magnesium 1.90 mg/dL (1.7-2.3) 12/11/16 04:30 Urine Creatinine 29.5 mg/dL (0.1-20.0) H 12/04/16 11:25 Urine Sodium 26 mEq/L 12/04/16 11:25 Urine Total Protein 33 mg/dL (5-11.8) H 12/04/16 11:25
[2016-12-23] MEDS ORDERED: NACL 0.9 (PRIMING MACHINE ONLY DIALYSIS) MC ONE (16:55)
[2016-12-23] MEDS: HEPARIN IV PRN (17:19)
[2016-12-23] MEDS: PERCOCET 5/325 PO PRN (21:50)
[2016-12-23] MEDS: BENADRYL PO PRN (22:22)
--- NOTE | 2016-12-23 23:45 | Progress Note ---
Assessment and Plan Patient sleeping at this time on nasal canula. No acute respiratory distress.O2 saturation 100% on 2 litres O2. - Patient Problems (1) DKA (diabetic ketoacidoses) Current Visit: Yes Status: Acute Qualifiers: Diabetes mellitus type: type 1 Diabetes mellitus complication detail: without coma Diabetes mellitus fdc insulin use: D Qualified Code(s): E10.10 - Type 1 diabetes mellitus with ketoacidosis without coma Plan to address problem: Patient is on S/C insulin. Patient alert, awake. Clinicaly appears improving. Management as per primary care. (2) Metabolic encephalopathy Current Visit: Yes Status: Acute Plan to address problem: Patient alert, awake, following commands. Appears encephalopathy improving. Management as per primary care. (3) Pulmonary infiltrate in right lung on chest x-ray Current Visit: Yes Status: Acute Plan to address problem: Starting on I/V Levaquine. Patient afebrile. Still has leukocytosis. lRepeat chest xray improving right upper lobe infiltrate and new right lower lobe infiltrate Subjective Date of service: 12/23/16 Principal diagnosis: Sepsis; Pneumonia; ASHELY on dialysis; Diabetes Interval history: Patient sleeping at this time on nasal canula. No acute respiratory distress.O2 saturation 100% on 2 litres O2. Objective Vital Signs - 12hr 12/23/16 12/23/16 12/23/16 14:45 15:00 15:15 Temperature 98.6 F Pulse Rate 104 H 98 H 98 H Pulse Rate [ Right Radial] Respiratory 16 Rate Blood Pressure 137/83 144/88 153/92 Blood Pressure [Right Arm] O2 Sat by Pulse Oximetry 12/23/16 12/23/16 12/23/16 15:30 15:45 16:00 Temperature Pulse Rate 95 H 93 H 92 H Pulse Rate [ Right Radial] Respiratory Rate Blood Pressure 154/102 154/102 148/94 Blood Pressure [Right Arm] O2 Sat by Pulse Oximetry 12/23/16 12/23/16 12/23/16 16:15 16:30 16:45 Temperature Pulse Rate 92 H 92 H 93 H Pulse Rate [ Right Radial] Respiratory Rate Blood Pressure 154/94 148/94 165/106 Blood Pressure [Right Arm] O2 Sat by Pulse Oximetry 12/23/16 12/23/16 12/23/16 17:00 17:15 17:30 Temperature 98.6 F Pulse Rate 96 H 95 H 99 H Pulse Rate [ Right Radial] Respiratory 18 Rate Blood Pressure 165/93 152/84 163/93 Blood Pressure [Right Arm] O2 Sat by Pulse Oximetry 12/23/16 12/23/16 18:35 20:00 Temperature 98.4 F 99.4 F Pulse Rate Pulse Rate [ 101 H 107 H Right Radial] Respiratory 20 18 Rate Blood Pressure Blood Pressure 168/91 153/86 [Right Arm] O2 Sat by Pulse 98 100 Oximetry Constitutional: no acute distress, asleep Eyes: non-icteric ENT: oropharynx moist Neck: supple, no lymphadenopathy Effort: normal Ascultation: Right: rhonchi, Bilateral: diminished breath sounds, rales (R>L lungs) Cardiovascular: regular rate and rhythm Gastrointestinal: normoactive bowel sounds, soft, non-tender, non-distended Integumentary: normal Extremities: no cyanosis, no edema, pulses normal, no ischemia or petechiae Neurologic: normal mental status, non-focal exam, pupils equal and round, motor strength normal and Psychiatric: mood appropriate, affect normal CBC and BMP: 12/23/16 06:42 12/23/16 06:42 ABG, PT/INR, D-dimer: ABG POC ABG pH 7.326 (7.35-7.45) L 12/09/16 12:02 POC ABG pCO2 37.7 (35-45) 12/09/16 12:02 POC ABG pO2 115 (80-105) H 12/09/16 12:02 POC ABG HCO3 19.7 12/09/16 12:02 POC ABG Total CO2 21 12/09/16 12:02 POC ABG O2 Sat 98 12/09/16 12:02 PT/INR, D-dimer PT 15.3 Sec. (12.2-14.9) H 12/08/16 19:00 INR 1.22 (0.87-1.13) H 12/08/16 19:00 D-Dimer 5507.36 ng/mlDDU (0-234) H 12/08/16 19:00 Abnormal lab findings: Abnormal Labs 12/04/16 12/04/16 12/04/16 01:19 01:36 02:21 WBC RBC Hgb Hct MCV MCHC RDW Plt Count Lymph % (Auto) [place] % (Auto) [place] # Baso # Seg Neutrophils % Seg Neuts % (Manual) Lymphocytes % (Manual) Monocytes % (Manual) Nucleated RBC % Seg Neutrophils # Seg Neutrophils # Man Lymphocytes # (Manual) Monocytes # (Manual) Percent Retic Haptoglobin PT INR Fibrinogen D-Dimer POC ABG pH 6.759 L POC ABG pCO2 POC ABG pO2 437 H Sodium Potassium Chloride Carbon Dioxide BUN Creatinine Glucose POC Glucose > 500 H Lactic Acid Calcium Phosphorus 15.70 H Magnesium 4.30 H Iron TIBC Transferrin Total Bilirubin Direct Bilirubin AST ALT Alkaline Phosphatase Lactate Dehydrogenase CK-MB (CK-2) Troponin T C-Reactive Protein Total Protein Albumin Triglycerides Cholesterol HDL Cholesterol Vitamin B12 Urine Creatinine Urine Total Protein Heparin-induced Plt Ab Hep Bs Antibody, Quant Crossmatch 12/04/16 12/04/16 12/04/16 03:55 04:00 05:11 WBC RBC Hgb Hct MCV MCHC RDW Plt Count Lymph % (Auto) [place] % (Auto) [place] # Baso # Seg Neutrophils % Seg Neuts % (Manual) Lymphocytes % (Manual) Monocytes % (Manual) Nucleated RBC % Seg Neutrophils # Seg Neutrophils # Man Lymphocytes # (Manual) Monocytes # (Manual) Percent Retic Haptoglobin PT INR Fibrinogen D-Dimer POC ABG pH POC ABG pCO2 POC ABG pO2 Sodium Potassium Chloride 91.4 L Carbon Dioxide 8 L* BUN 55 H Creatinine 2.8 H Glucose 1610 H* POC Glucose > 500 H > 500 H Lactic Acid Calcium Phosphorus Magnesium Iron TIBC Transferrin Total Bilirubin Direct Bilirubin AST ALT Alkaline Phosphatase Lactate Dehydrogenase CK-MB (CK-2) Troponin T C-Reactive Protein Total Protein Albumin Triglycerides Cholesterol HDL Cholesterol Vitamin B12 Urine Creatinine Urine Total Protein Heparin-induced Plt Ab Hep Bs Antibody, Quant Crossmatch 12/04/16 12/04/16 12/04/16 05:40 05:54 06:58 WBC RBC Hgb Hct MCV MCHC RDW Plt Count Lymph % (Auto) [place] % (Auto) [place] # Baso # Seg Neutrophils % Seg Neuts % (Manual) Lymphocytes % (Manual) Monocytes % (Manual) Nucleated RBC % Seg Neutrophils # Seg Neutrophils # Man Lymphocytes # (Manual) Monocytes # (Manual) Percent Retic Haptoglobin PT INR Fibrinogen D-Dimer POC ABG pH 7.154 L POC ABG pCO2 27.5 L POC ABG pO2 111 H Sodium Potassium Chloride Carbon Dioxide BUN Creatinine Glucose POC Glucose > 500 H > 500 H Lactic Acid Calcium Phosphorus Magnesium Iron TIBC Transferrin Total Bilirubin Direct Bilirubin AST ALT Alkaline Phosphatase Lactate Dehydrogenase CK-MB (CK-2) Troponin T C-Reactive Protein Total Protein Albumin Triglycerides Cholesterol HDL Cholesterol Vitamin B12 Urine Creatinine Urine Total Protein Heparin-induced Plt Ab Hep Bs Antibody, Quant Crossmatch 12/04/16 12/04/16 12/04/16 07:49 07:55 07:55 WBC RBC Hgb Hct MCV MCHC RDW Plt Count Lymph % (Auto) [place] % (Auto) [place] # Baso # Seg Neutrophils % Seg Neuts % (Manual) Lymphocytes % (Manual) Monocytes % (Manual) Nucleated RBC % Seg Neutrophils # Seg Neutrophils # Man Lymphocytes # (Manual) Monocytes # (Manual) Percent Retic Haptoglobin PT INR Fibrinogen D-Dimer POC ABG pH POC ABG pCO2 POC ABG pO2 Sodium Potassium 3.3 L Chloride Carbon Dioxide 9 L* BUN 53 H Creatinine 2.9 H Glucose 1229 H* POC Glucose > 500 H Lactic Acid Calcium Phosphorus Magnesium Iron TIBC Transferrin Total Bilirubin Direct Bilirubin AST ALT Alkaline Phosphatase Lactate Dehydrogenase CK-MB (CK-2) Troponin T 0.111 H* D C-Reactive Protein Total Protein Albumin Triglycerides 570 H Cholesterol 221 H HDL Cholesterol 37 L Vitamin B12 Urine Creatinine Urine Total Protein Heparin-induced Plt Ab Hep Bs Antibody, Quant Crossmatch 12/04/16 12/04/16 12/04/16 07:55 09:55 09:55 WBC RBC 2.90 L Hgb 8.5 L Hct 30.2 L D MCV 105 H D MCHC 28 L RDW 19.2 H Plt Count Lymph % (Auto) [place] % (Auto) [place] # Baso # Seg Neutrophils % Seg Neuts % (Manual) Lymphocytes % (Manual) 11.0 L Monocytes % (Manual) Nucleated RBC % Seg Neutrophils # Seg Neutrophils # Man Lymphocytes # (Manual) 0.6 L Monocytes # (Manual) Percent Retic Haptoglobin PT INR Fibrinogen D-Dimer POC ABG pH POC ABG pCO2 POC ABG pO2 Sodium Potassium 3.1 L Chloride Carbon Dioxide 7 L* BUN 51 H Creatinine 3.2 H Glucose 969 H* POC Glucose Lactic Acid Calcium 10.4 H D Phosphorus Magnesium Iron TIBC Transferrin Total Bilirubin Direct Bilirubin AST ALT Alkaline Phosphatase Lactate Dehydrogenase CK-MB (CK-2) 4.6 H Troponin T 0.140 H* D C-Reactive Protein Total Protein Albumin Triglycerides Cholesterol HDL Cholesterol Vitamin B12 Urine Creatinine Urine Total Protein Heparin-induced Plt Ab Hep Bs Antibody, Quant Crossmatch 12/04/16 12/04/16 12/04/16 09:55 10:37 11:25 WBC RBC Hgb Hct MCV MCHC RDW Plt Count Lymph % (Auto) [place] % (Auto) [place] # Baso # Seg Neutrophils % Seg Neuts % (Manual) Lymphocytes % (Manual) Monocytes % (Manual) Nucleated RBC % Seg Neutrophils # Seg Neutrophils # Man Lymphocytes # (Manual) Monocytes # (Manual) Percent Retic Haptoglobin PT INR Fibrinogen D-Dimer POC ABG pH 7.215 L POC ABG pCO2 18.8 L POC ABG pO2 193 H Sodium Potassium Chloride Carbon Dioxide BUN Creatinine Glucose POC Glucose Lactic Acid Calcium Phosphorus Magnesium 3.70 H Iron TIBC Transferrin Total Bilirubin Direct Bilirubin AST ALT Alkaline Phosphatase Lactate Dehydrogenase CK-MB (CK-2) Troponin T C-Reactive Protein Total Protein Albumin Triglycerides Cholesterol HDL Cholesterol Vitamin B12 Urine Creatinine 29.5 H Urine Total Protein 33 H Heparin-induced Plt Ab Hep Bs Antibody, Quant Crossmatch 12/04/16 12/04/16 12/04/16 12:00 12:48 13:00 WBC RBC Hgb Hct MCV MCHC RDW Plt Count Lymph % (Auto) [place] % (Auto) [place] # Baso # Seg Neutrophils % Seg Neuts % (Manual) Lymphocytes % (Manual) Monocytes % (Manual) Nucleated RBC % Seg Neutrophils # Seg Neutrophils # Man Lymphocytes # (Manual) Monocytes # (Manual) Percent Retic Haptoglobin PT INR Fibrinogen D-Dimer POC ABG pH POC ABG pCO2 POC ABG pO2 Sodium 149 H 150 H Potassium 3.2 L 3.2 L Chloride 109.1 H Carbon Dioxide 8 L* 8 L* BUN 52 H 49 H Creatinine 3.4 H 3.1 H Glucose 723 H* 574 H* POC Glucose Lactic Acid 18.80 H* Calcium Phosphorus Magnesium Iron TIBC Transferrin Total Bilirubin Direct Bilirubin AST ALT Alkaline Phosphatase Lactate Dehydrogenase CK-MB (CK-2) Troponin T C-Reactive Protein Total Protein Albumin Triglycerides Cholesterol HDL Cholesterol Vitamin B12 Urine Creatinine Urine Total Protein Heparin-induced Plt Ab Hep Bs Antibody, Quant Crossmatch 12/04/16 12/04/16 12/04/16 13:01 14:41 16:06 WBC RBC Hgb Hct MCV MCHC RDW Plt Count Lymph % (Auto) [place] % (Auto) [place] # Baso # Seg Neutrophils % Seg Neuts % (Manual) Lymphocytes % (Manual) Monocytes % (Manual) Nucleated RBC % Seg Neutrophils # Seg Neutrophils # Man Lymphocytes # (Manual) Monocytes # (Manual) Percent Retic Haptoglobin PT INR Fibrinogen D-Dimer POC ABG pH POC ABG pCO2 POC ABG pO2 Sodium 151 H Potassium 3.2 L Chloride 108.1 H Carbon Dioxide 10 L BUN 49 H Creatinine 3.0 H Glucose 383 H POC Glucose 292 H Lactic Acid Calcium Phosphorus Magnesium Iron TIBC Transferrin Total Bilirubin Direct Bilirubin AST ALT Alkaline Phosphatase Lactate Dehydrogenase CK-MB (CK-2) Troponin T C-Reactive Protein 3.50 H Total Protein Albumin Triglycerides Cholesterol HDL Cholesterol Vitamin B12 Urine Creatinine Urine Total Protein Heparin-induced Plt Ab Hep Bs Antibody, Quant Crossmatch 12/04/16 12/04/16 12/04/16 17:15 17:25 18:07 WBC RBC Hgb Hct MCV MCHC RDW Plt Count Lymph % (Auto) [place] % (Auto) [place] # Baso # Seg Neutrophils % Seg Neuts % (Manual) Lymphocytes % (Manual) Monocytes % (Manual) Nucleated RBC % Seg Neutrophils # Seg Neutrophils # Man Lymphocytes # (Manual) Monocytes # (Manual) Percent Retic Haptoglobin PT INR Fibrinogen D-Dimer POC ABG pH 7.255 L POC ABG pCO2 16.9 L POC ABG pO2 169 H Sodium Potassium Chloride Carbon Dioxide BUN Creatinine Glucose POC Glucose 246 H Lactic Acid 18.50 H* Calcium Phosphorus Magnesium Iron TIBC Transferrin Total Bilirubin Direct Bilirubin AST ALT Alkaline Phosphatase Lactate Dehydrogenase CK-MB (CK-2) Troponin T C-Reactive Protein Total Protein Albumin Triglycerides Cholesterol HDL Cholesterol Vitamin B12 Urine Creatinine Urine Total Protein Heparin-induced Plt Ab Hep Bs Antibody, Quant Crossmatch 12/04/16 12/04/16 12/04/16 19:34 20:31 21:15 WBC RBC Hgb Hct MCV MCHC RDW Plt Count Lymph % (Auto) [place] % (Auto) [place] # Baso # Seg Neutrophils % Seg Neuts % (Manual) Lymphocytes % (Manual) Monocytes % (Manual) Nucleated RBC % Seg Neutrophils # Seg Neutrophils # Man Lymphocytes # (Manual) Monocytes # (Manual) Percent Retic Haptoglobin PT INR Fibrinogen D-Dimer POC ABG pH POC ABG pCO2 POC ABG pO2 Sodium Potassium Chloride Carbon Dioxide BUN Creatinine Glucose POC Glucose 189 H 126 H 139 H Lactic Acid Calcium Phosphorus Magnesium Iron TIBC Transferrin Total Bilirubin Direct Bilirubin AST ALT Alkaline Phosphatase Lactate Dehydrogenase CK-MB (CK-2) Troponin T C-Reactive Protein Total Protein Albumin Triglycerides Cholesterol HDL Cholesterol Vitamin B12 Urine Creatinine Urine Total Protein Heparin-induced Plt Ab Hep Bs Antibody, Quant Crossmatch 12/04/16 12/04/16 12/04/16 21:25 22:37 23:35 WBC RBC Hgb Hct MCV MCHC RDW Plt Count Lymph % (Auto) [place] % (Auto) [place] # Baso # Seg Neutrophils % Seg Neuts % (Manual) Lymphocytes % (Manual) Monocytes % (Manual) Nucleated RBC % Seg Neutrophils # Seg Neutrophils # Man Lymphocytes # (Manual) Monocytes # (Manual) Percent Retic Haptoglobin PT INR Fibrinogen D-Dimer POC ABG pH 7.294 L POC ABG pCO2 16.7 L POC ABG pO2 169 H Sodium Potassium Chloride Carbon Dioxide BUN Creatinine Glucose POC Glucose 131 H 106 H Lactic Acid Calcium Phosphorus Magnesium Iron TIBC Transferrin Total Bilirubin Direct Bilirubin AST ALT Alkaline Phosphatase Lactate Dehydrogenase CK-MB (CK-2) Troponin T C-Reactive Protein Total Protein Albumin Triglycerides Cholesterol HDL Cholesterol Vitamin B12 Urine Creatinine Urine Total Protein Heparin-induced Plt Ab Hep Bs Antibody, Quant Crossmatch 12/05/16 12/05/16 12/05/16 02:40 02:50 02:50 WBC RBC Hgb Hct MCV MCHC RDW Plt Count Lymph % (Auto) [place] % (Auto) [place] # Baso # Seg Neutrophils % Seg Neuts % (Manual) Lymphocytes % (Manual) Monocytes % (Manual) Nucleated RBC % Seg Neutrophils # Seg Neutrophils # Man Lymphocytes # (Manual) Monocytes # (Manual) Percent Retic Haptoglobin PT INR Fibrinogen D-Dimer POC ABG pH POC ABG pCO2 POC ABG pO2 Sodium 151 H Potassium Chloride 113.8 H Carbon Dioxide 12 L BUN 46 H Creatinine 3.2 H Glucose 165 H POC Glucose 109 H Lactic Acid 9.80 H* Calcium 8.3 L Phosphorus Magnesium Iron TIBC Transferrin Total Bilirubin Direct Bilirubin AST ALT Alkaline Phosphatase Lactate Dehydrogenase CK-MB (CK-2) Troponin T C-Reactive Protein Total Protein Albumin Triglycerides Cholesterol HDL Cholesterol Vitamin B12 Urine Creatinine Urine Total Protein Heparin-induced Plt Ab Hep Bs Antibody, Quant Crossmatch 12/05/16 12/05/16 12/05/16 04:01 04:30 04:30 WBC 19.1 H RBC 2.91 L Hgb 8.0 L Hct 25.4 L MCV MCHC RDW 17.8 H Plt Count Lymph % (Auto) [place] % (Auto) [place] # Baso # Seg Neutrophils % Seg Neuts % (Manual) 17.0 L Lymphocytes % (Manual) 7.0 L Monocytes % (Manual) Nucleated RBC % 3.0 H Seg Neutrophils # Seg Neutrophils # Man Lymphocytes # (Manual) Monocytes # (Manual) Percent Retic Haptoglobin PT INR Fibrinogen D-Dimer POC ABG pH POC ABG pCO2 POC ABG pO2 Sodium 152 H Potassium Chloride 113.5 H Carbon Dioxide 12 L BUN 47 H Creatinine 3.2 H Glucose 133 H POC Glucose 179 H Lactic Acid Calcium 8.3 L Phosphorus 1.00 L D Magnesium Iron TIBC Transferrin Total Bilirubin Direct Bilirubin AST ALT Alkaline Phosphatase Lactate Dehydrogenase CK-MB (CK-2) Troponin T C-Reactive Protein Total Protein Albumin Triglycerides Cholesterol HDL Cholesterol Vitamin B12 Urine Creatinine Urine Total Protein Heparin-induced Plt Ab Hep Bs Antibody, Quant Crossmatch 12/05/16 12/05/16 12/05/16 05:32 08:01 08:48 WBC RBC Hgb Hct MCV MCHC RDW Plt Count Lymph % (Auto) [place] % (Auto) [place] # Baso # Seg Neutrophils % Seg Neuts % (Manual) Lymphocytes % (Manual) Monocytes % (Manual) Nucleated RBC % Seg Neutrophils # Seg Neutrophils # Man Lymphocytes # (Manual) Monocytes # (Manual) Percent Retic Haptoglobin PT INR Fibrinogen D-Dimer POC ABG pH POC ABG pCO2 17.6 L POC ABG pO2 62 L Sodium Potassium Chloride Carbon Dioxide BUN Creatinine Glucose POC Glucose 126 H 130 H Lactic Acid Calcium Phosphorus Magnesium Iron TIBC Transferrin Total Bilirubin Direct Bilirubin AST ALT Alkaline Phosphatase Lactate Dehydrogenase CK-MB (CK-2) Troponin T C-Reactive Protein Total Protein Albumin Triglycerides Cholesterol HDL Cholesterol Vitamin B12 Urine Creatinine Urine Total Protein Heparin-induced Plt Ab Hep Bs Antibody, Quant Crossmatch 12/05/16 12/05/16 12/05/16 08:54 12:01 15:15 WBC RBC Hgb Hct MCV MCHC RDW Plt Count Lymph % (Auto) [place] % (Auto) [place] # Baso # Seg Neutrophils % Seg Neuts % (Manual) Lymphocytes % (Manual) Monocytes % (Manual) Nucleated RBC % Seg Neutrophils # Seg Neutrophils # Man Lymphocytes # (Manual) Monocytes # (Manual) Percent Retic Haptoglobin PT INR Fibrinogen D-Dimer POC ABG pH POC ABG pCO2 POC ABG pO2 Sodium Potassium Chloride Carbon Dioxide BUN Creatinine Glucose POC Glucose 157 H 117 H 166 H Lactic Acid Calcium Phosphorus Magnesium Iron TIBC Transferrin Total Bilirubin Direct Bilirubin AST ALT Alkaline Phosphatase Lactate Dehydrogenase CK-MB (CK-2) Troponin T C-Reactive Protein Total Protein Albumin Triglycerides Cholesterol HDL Cholesterol Vitamin B12 Urine Creatinine Urine Total Protein Heparin-induced Plt Ab Hep Bs Antibody, Quant Crossmatch 12/05/16 12/05/16 12/05/16 16:10 16:55 17:08 WBC RBC Hgb Hct MCV MCHC RDW Plt Count Lymph % (Auto) [place] % (Auto) [place] # Baso # Seg Neutrophils % Seg Neuts % (Manual) Lymphocytes % (Manual) Monocytes % (Manual) Nucleated RBC % Seg Neutrophils # Seg Neutrophils # Man Lymphocytes # (Manual) Monocytes # (Manual) Percent Retic Haptoglobin PT INR Fibrinogen D-Dimer POC ABG pH POC ABG pCO2 POC ABG pO2 Sodium Potassium Chloride Carbon Dioxide BUN Creatinine Glucose POC Glucose 178 H 169 H Lactic Acid Calcium Phosphorus 5.00 H D Magnesium Iron TIBC Transferrin Total Bilirubin Direct Bilirubin AST ALT Alkaline Phosphatase Lactate Dehydrogenase CK-MB (CK-2) Troponin T C-Reactive Protein Total Protein Albumin Triglycerides Cholesterol HDL Cholesterol Vitamin B12 Urine Creatinine Urine Total Protein Heparin-induced Plt Ab Hep Bs Antibody, Quant Crossmatch 12/05/16 12/05/16 12/05/16 18:08 18:51 20:04 WBC RBC Hgb Hct MCV MCHC RDW Plt Count Lymph % (Auto) [place] % (Auto) [place] # Baso # Seg Neutrophils % Seg Neuts % (Manual) Lymphocytes % (Manual) Monocytes % (Manual) Nucleated RBC % Seg Neutrophils # Seg Neutrophils # Man Lymphocytes # (Manual) Monocytes # (Manual) Percent Retic Haptoglobin PT INR Fibrinogen D-Dimer POC ABG pH POC ABG pCO2 POC ABG pO2 Sodium Potassium Chloride Carbon Dioxide BUN Creatinine Glucose POC Glucose 147 H 113 H 64 L Lactic Acid Calcium Phosphorus Magnesium Iron TIBC Transferrin Total Bilirubin Direct Bilirubin AST ALT Alkaline Phosphatase Lactate Dehydrogenase CK-MB (CK-2) Troponin T C-Reactive Protein Total Protein Albumin Triglycerides Cholesterol HDL Cholesterol Vitamin B12 Urine Creatinine Urine Total Protein Heparin-induced Plt Ab Hep Bs Antibody, Quant Crossmatch 12/05/16 12/05/16 12/05/16 21:34 22:08 23:19 WBC RBC Hgb Hct MCV MCHC RDW Plt Count Lymph % (Auto) [place] % (Auto) [place] # Baso # Seg Neutrophils % Seg Neuts % (Manual) Lymphocytes % (Manual) Monocytes % (Manual) Nucleated RBC % Seg Neutrophils # Seg Neutrophils # Man Lymphocytes # (Manual) Monocytes # (Manual) Percent Retic Haptoglobin PT INR Fibrinogen D-Dimer POC ABG pH 7.303 L POC ABG pCO2 18.3 L POC ABG pO2 73 L Sodium Potassium Chloride Carbon Dioxide BUN Creatinine Glucose POC Glucose 141 H 200 H Lactic Acid Calcium Phosphorus Magnesium Iron TIBC Transferrin Total Bilirubin Direct Bilirubin AST ALT Alkaline Phosphatase Lactate Dehydrogenase CK-MB (CK-2) Troponin T C-Reactive Protein Total Protein Albumin Triglycerides Cholesterol HDL Cholesterol Vitamin B12 Urine Creatinine Urine Total Protein Heparin-induced Plt Ab Hep Bs Antibody, Quant Crossmatch 12/06/16 12/06/16 12/06/16 00:01 01:09 02:00 WBC RBC Hgb Hct MCV MCHC RDW Plt Count Lymph % (Auto) [place] % (Auto) [place] # Baso # Seg Neutrophils % Seg Neuts % (Manual) Lymphocytes % (Manual) Monocytes % (Manual) Nucleated RBC % Seg Neutrophils # Seg Neutrophils # Man Lymphocytes # (Manual) Monocytes # (Manual) Percent Retic Haptoglobin PT INR Fibrinogen D-Dimer POC ABG pH POC ABG pCO2 POC ABG pO2 Sodium Potassium Chloride Carbon Dioxide BUN Creatinine Glucose POC Glucose 211 H 116 H 57 L Lactic Acid Calcium Phosphorus Magnesium Iron TIBC Transferrin Total Bilirubin Direct Bilirubin AST ALT Alkaline Phosphatase Lactate Dehydrogenase CK-MB (CK-2) Troponin T C-Reactive Protein Total Protein Albumin Triglycerides Cholesterol HDL Cholesterol Vitamin B12 Urine Creatinine Urine Total Protein Heparin-induced Plt Ab Hep Bs Antibody, Quant Crossmatch 12/06/16 12/06/16 12/06/16 04:14 04:50 04:50 WBC RBC 2.68 L Hgb 7.6 L Hct 23.2 L MCV MCHC RDW 18.9 H Plt Count Lymph % (Auto) [place] % (Auto) [place] # Baso # Seg Neutrophils % Seg Neuts % (Manual) 32.0 L Lymphocytes % (Manual) Monocytes % (Manual) Nucleated RBC % 3.0 H Seg Neutrophils # Seg Neutrophils # Man Lymphocytes # (Manual) 0.9 L Monocytes # (Manual) Percent Retic Haptoglobin PT INR Fibrinogen D-Dimer POC ABG pH POC ABG pCO2 POC ABG pO2 Sodium Potassium 5.8 H D Chloride 111.5 H Carbon Dioxide 11 L BUN 52 H Creatinine 3.8 H Glucose 186 H POC Glucose 133 H Lactic Acid Calcium 6.5 L D Phosphorus 5.80 H Magnesium Iron TIBC Transferrin Total Bilirubin Direct Bilirubin AST ALT Alkaline Phosphatase Lactate Dehydrogenase CK-MB (CK-2) Troponin T C-Reactive Protein Total Protein Albumin Triglycerides Cholesterol HDL Cholesterol Vitamin B12 Urine Creatinine Urine Total Protein Heparin-induced Plt Ab Hep Bs Antibody, Quant Crossmatch 12/06/16 12/06/16 12/06/16 04:50 05:04 05:07 WBC RBC Hgb Hct MCV MCHC RDW Plt Count Lymph % (Auto) [place] % (Auto) [place] # Baso # Seg Neutrophils % Seg Neuts % (Manual) Lymphocytes % (Manual) Monocytes % (Manual) Nucleated RBC % Seg Neutrophils # Seg Neutrophils # Man Lymphocytes # (Manual) Monocytes # (Manual) Percent Retic Haptoglobin PT INR Fibrinogen D-Dimer POC ABG pH POC ABG pCO2 13.0 L POC ABG pO2 111 H Sodium Potassium Chloride Carbon Dioxide BUN Creatinine Glucose POC Glucose 127 H Lactic Acid 6.50 H* Calcium Phosphorus Magnesium Iron TIBC Transferrin Total Bilirubin Direct Bilirubin AST ALT Alkaline Phosphatase Lactate Dehydrogenase CK-MB (CK-2) Troponin T C-Reactive Protein Total Protein Albumin Triglycerides Cholesterol HDL Cholesterol Vitamin B12 Urine Creatinine Urine Total Protein Heparin-induced Plt Ab Hep Bs Antibody, Quant Crossmatch 12/06/16 12/06/16 12/06/16 06:10 06:54 07:46 WBC RBC Hgb Hct MCV MCHC RDW Plt Count Lymph % (Auto) [place] % (Auto) [place] # Baso # Seg Neutrophils % Seg Neuts % (Manual) Lymphocytes % (Manual) Monocytes % (Manual) Nucleated RBC % Seg Neutrophils # Seg Neutrophils # Man Lymphocytes # (Manual) Monocytes # (Manual) Percent Retic Haptoglobin PT INR Fibrinogen D-Dimer POC ABG pH POC ABG pCO2 POC ABG pO2 Sodium Potassium Chloride Carbon Dioxide BUN Creatinine Glucose POC Glucose 219 H 237 H 158 H Lactic Acid Calcium Phosphorus Magnesium Iron TIBC Transferrin Total Bilirubin Direct Bilirubin AST ALT Alkaline Phosphatase Lactate Dehydrogenase CK-MB (CK-2) Troponin T C-Reactive Protein Total Protein Albumin Triglycerides Cholesterol HDL Cholesterol Vitamin B12 Urine Creatinine Urine Total Protein Heparin-induced Plt Ab Hep Bs Antibody, Quant Crossmatch 12/06/16 12/06/16 12/06/16 08:55 10:27 11:58 WBC RBC Hgb Hct MCV MCHC RDW Plt Count Lymph % (Auto) [place] % (Auto) [place] # Baso # Seg Neutrophils % Seg Neuts % (Manual) Lymphocytes % (Manual) Monocytes % (Manual) Nucleated RBC % Seg Neutrophils # Seg Neutrophils # Man Lymphocytes # (Manual) Monocytes # (Manual) Percent Retic Haptoglobin PT INR Fibrinogen D-Dimer POC ABG pH POC ABG pCO2 POC ABG pO2 Sodium Potassium Chloride Carbon Dioxide BUN Creatinine Glucose POC Glucose 40 L 128 H 144 H Lactic Acid Calcium Phosphorus Magnesium Iron TIBC Transferrin Total Bilirubin Direct Bilirubin AST ALT Alkaline Phosphatase Lactate Dehydrogenase CK-MB (CK-2) Troponin T C-Reactive Protein Total Protein Albumin Triglycerides Cholesterol HDL Cholesterol Vitamin B12 Urine Creatinine Urine Total Protein Heparin-induced Plt Ab Hep Bs Antibody, Quant Crossmatch 12/06/16 12/06/16 12/06/16 18:14 19:00 19:06 WBC RBC Hgb Hct MCV MCHC RDW Plt Count Lymph % (Auto) [place] % (Auto) [place] # Baso # Seg Neutrophils % Seg Neuts % (Manual) Lymphocytes % (Manual) Monocytes % (Manual) Nucleated RBC % Seg Neutrophils # Seg Neutrophils # Man Lymphocytes # (Manual) Monocytes # (Manual) Percent Retic Haptoglobin PT INR Fibrinogen D-Dimer POC ABG pH POC ABG pCO2 POC ABG pO2 Sodium 149 H Potassium 5.6 H Chloride 115.9 H Carbon Dioxide 13 L BUN 56 H Creatinine 4.3 H Glucose 124 H POC Glucose 55 L 148 H Lactic Acid Calcium 6.0 L Phosphorus Magnesium Iron TIBC Transferrin Total Bilirubin Direct Bilirubin AST ALT Alkaline Phosphatase Lactate Dehydrogenase CK-MB (CK-2) Troponin T C-Reactive Protein Total Protein Albumin Triglycerides Cholesterol HDL Cholesterol Vitamin B12 Urine Creatinine Urine Total Protein Heparin-induced Plt Ab Hep Bs Antibody, Quant Crossmatch 12/06/16 12/06/16 12/07/16 21:24 21:51 02:32 WBC RBC Hgb Hct MCV MCHC RDW Plt Count Lymph % (Auto) [place] % (Auto) [place] # Baso # Seg Neutrophils % Seg Neuts % (Manual) Lymphocytes % (Manual) Monocytes % (Manual) Nucleated RBC % Seg Neutrophils # Seg Neutrophils # Man Lymphocytes # (Manual) Monocytes # (Manual) Percent Retic Haptoglobin PT INR Fibrinogen D-Dimer POC ABG pH POC ABG pCO2 17.0 L POC ABG pO2 142 H Sodium Potassium Chloride Carbon Dioxide BUN Creatinine Glucose POC Glucose 107 H 175 H Lactic Acid Calcium Phosphorus Magnesium Iron TIBC Transferrin Total Bilirubin Direct Bilirubin AST ALT Alkaline Phosphatase Lactate Dehydrogenase CK-MB (CK-2) Troponin T C-Reactive Protein Total Protein Albumin Triglycerides Cholesterol HDL Cholesterol Vitamin B12 Urine Creatinine Urine Total Protein Heparin-induced Plt Ab Hep Bs Antibody, Quant Crossmatch 12/07/16 12/07/16 12/07/16 05:01 05:25 06:00 WBC RBC 2.52 L Hgb 7.1 L Hct 22.1 L MCV MCHC RDW 19.3 H Plt Count 90 L Lymph % (Auto) [place] % (Auto) [place] # Baso # Seg Neutrophils % Seg Neuts % (Manual) 75.0 H Lymphocytes % (Manual) 11.0 L Monocytes % (Manual) Nucleated RBC % Seg Neutrophils # Seg Neutrophils # Man Lymphocytes # (Manual) 0.7 L Monocytes # (Manual) Percent Retic Haptoglobin PT INR Fibrinogen D-Dimer POC ABG pH 7.300 L POC ABG pCO2 17.1 L POC ABG pO2 140 H Sodium Potassium Chloride Carbon Dioxide BUN Creatinine Glucose POC Glucose 279 H Lactic Acid Calcium Phosphorus Magnesium Iron TIBC Transferrin Total Bilirubin Direct Bilirubin AST ALT Alkaline Phosphatase Lactate Dehydrogenase CK-MB (CK-2) Troponin T C-Reactive Protein Total Protein Albumin Triglycerides Cholesterol HDL Cholesterol Vitamin B12 Urine Creatinine Urine Total Protein Heparin-induced Plt Ab Hep Bs Antibody, Quant Crossmatch 12/07/16 12/07/16 12/07/16 06:00 06:00 07:30 WBC RBC Hgb Hct MCV MCHC RDW Plt Count Lymph % (Auto) [place] % (Auto) [place] # Baso # Seg Neutrophils % Seg Neuts % (Manual) Lymphocytes % (Manual) Monocytes % (Manual) Nucleated RBC % Seg Neutrophils # Seg Neutrophils # Man Lymphocytes # (Manual) Monocytes # (Manual) Percent Retic Haptoglobin PT INR Fibrinogen D-Dimer POC ABG pH POC ABG pCO2 POC ABG pO2 Sodium Potassium Chloride Carbon Dioxide BUN Creatinine Glucose POC Glucose Lactic Acid 6.90 H* Calcium Phosphorus 6.80 H Magnesium Iron TIBC Transferrin Total Bilirubin Direct Bilirubin AST ALT Alkaline Phosphatase Lactate Dehydrogenase CK-MB (CK-2) Troponin T C-Reactive Protein 39.40 H Total Protein Albumin Triglycerides Cholesterol HDL Cholesterol Vitamin B12 Urine Creatinine Urine Total Protein Heparin-induced Plt Ab Hep Bs Antibody, Quant Crossmatch 12/07/16 12/07/16 12/07/16 08:40 10:53 14:31 WBC RBC Hgb Hct MCV MCHC RDW Plt Count Lymph % (Auto) [place] % (Auto) [place] # Baso # Seg Neutrophils % Seg Neuts % (Manual) Lymphocytes % (Manual) Monocytes % (Manual) Nucleated RBC % Seg Neutrophils # Seg Neutrophils # Man Lymphocytes # (Manual) Monocytes # (Manual) Percent Retic Haptoglobin PT INR Fibrinogen D-Dimer POC ABG pH POC ABG pCO2 POC ABG pO2 Sodium Potassium 7.0 H* D Chloride 112.4 H Carbon Dioxide 8 L* BUN 61 H Creatinine 5.1 H Glucose 213 H POC Glucose 353 H 52 L Lactic Acid Calcium 5.8 L* Phosphorus Magnesium Iron TIBC Transferrin Total Bilirubin Direct Bilirubin AST ALT Alkaline Phosphatase Lactate Dehydrogenase CK-MB (CK-2) Troponin T C-Reactive Protein Total Protein Albumin Triglycerides Cholesterol HDL Cholesterol Vitamin B12 Urine Creatinine Urine Total Protein Heparin-induced Plt Ab Hep Bs Antibody, Quant Crossmatch 12/07/16 12/07/16 12/07/16 14:45 15:33 16:22 WBC RBC Hgb Hct MCV MCHC RDW Plt Count Lymph % (Auto) [place] % (Auto) [place] # Baso # Seg Neutrophils % Seg Neuts % (Manual) Lymphocytes % (Manual) Monocytes % (Manual) Nucleated RBC % Seg Neutrophils # Seg Neutrophils # Man Lymphocytes # (Manual) Monocytes # (Manual) Percent Retic Haptoglobin PT 17.5 H INR 1.44 H Fibrinogen D-Dimer POC ABG pH POC ABG pCO2 POC ABG pO2 Sodium Potassium Chloride Carbon Dioxide BUN Creatinine Glucose POC Glucose < 40 L 118 H Lactic Acid Calcium Phosphorus Magnesium Iron TIBC Transferrin Total Bilirubin Direct Bilirubin AST ALT Alkaline Phosphatase Lactate Dehydrogenase CK-MB (CK-2) Troponin T C-Reactive Protein Total Protein Albumin Triglycerides Cholesterol HDL Cholesterol Vitamin B12 Urine Creatinine Urine Total Protein Heparin-induced Plt Ab Hep Bs Antibody, Quant Crossmatch 12/07/16 12/07/16 12/07/16 21:35 21:35 21:58 WBC RBC Hgb Hct MCV MCHC RDW Plt Count Lymph % (Auto) [place] % (Auto) [place] # Baso # Seg Neutrophils % Seg Neuts % (Manual) Lymphocytes % (Manual) Monocytes % (Manual) Nucleated RBC % Seg Neutrophils # Seg Neutrophils # Man Lymphocytes # (Manual) Monocytes # (Manual) Percent Retic Haptoglobin PT INR Fibrinogen D-Dimer POC ABG pH POC ABG pCO2 POC ABG pO2 Sodium 150 H Potassium 3.3 L D Chloride 111.4 H Carbon Dioxide 21 L D BUN 22 H Creatinine 2.6 H Glucose 23 L* POC Glucose < 40 L Lactic Acid Calcium Phosphorus Magnesium Iron TIBC Transferrin Total Bilirubin 1.40 H Direct Bilirubin 0.9 H AST 94 H ALT 142 H Alkaline Phosphatase 249 H Lactate Dehydrogenase CK-MB (CK-2) Troponin T C-Reactive Protein Total Protein 4.6 L D Albumin 2.1 L Triglycerides Cholesterol HDL Cholesterol Vitamin B12 Urine Creatinine Urine Total Protein Heparin-induced Plt Ab Hep Bs Antibody, Quant Crossmatch 12/07/16 12/08/16 12/08/16 23:31 04:43 04:50 WBC RBC 2.35 L Hgb 6.6 L Hct 20.1 L MCV MCHC RDW 17.8 H Plt Count 48 L Lymph % (Auto) [place] % (Auto) [place] # Baso # Seg Neutrophils % Seg Neuts % (Manual) Lymphocytes % (Manual) Monocytes % (Manual) Nucleated RBC % Seg Neutrophils # Seg Neutrophils # Man Lymphocytes # (Manual) 0.9 L Monocytes # (Manual) Percent Retic Haptoglobin PT INR Fibrinogen D-Dimer POC ABG pH 7.586 H POC ABG pCO2 17.7 L POC ABG pO2 150 H Sodium Potassium Chloride Carbon Dioxide BUN Creatinine Glucose POC Glucose 42 L Lactic Acid Calcium Phosphorus Magnesium Iron TIBC Transferrin Total Bilirubin Direct Bilirubin AST ALT Alkaline Phosphatase Lactate Dehydrogenase CK-MB (CK-2) Troponin T C-Reactive Protein Total Protein Albumin Triglycerides Cholesterol HDL Cholesterol Vitamin B12 Urine Creatinine Urine Total Protein Heparin-induced Plt Ab Hep Bs Antibody, Quant Crossmatch 12/08/16 12/08/16 12/08/16 04:50 04:59 06:54 WBC RBC Hgb Hct MCV MCHC RDW Plt Count Lymph % (Auto) [place] % (Auto) [place] # Baso # Seg Neutrophils % Seg Neuts % (Manual) Lymphocytes % (Manual) Monocytes % (Manual) Nucleated RBC % Seg Neutrophils # Seg Neutrophils # Man Lymphocytes # (Manual) Monocytes # (Manual) Percent Retic Haptoglobin PT INR Fibrinogen D-Dimer POC ABG pH POC ABG pCO2 POC ABG pO2 Sodium 149 H Potassium 3.2 L Chloride 111.8 H Carbon Dioxide 17 L BUN 26 H Creatinine 3.4 H Glucose 163 H POC Glucose 204 H 203 H Lactic Acid Calcium 7.7 L Phosphorus 2.40 L D Magnesium Iron TIBC Transferrin Total Bilirubin Direct Bilirubin AST ALT Alkaline Phosphatase Lactate Dehydrogenase CK-MB (CK-2) Troponin T C-Reactive Protein Total Protein Albumin Triglycerides Cholesterol HDL Cholesterol Vitamin B12 Urine Creatinine Urine Total Protein Heparin-induced Plt Ab Hep Bs Antibody, Quant Crossmatch 12/08/16 12/08/16 12/08/16 08:04 08:46 08:46 WBC RBC Hgb Hct MCV MCHC RDW Plt Count Lymph % (Auto) [place] % (Auto) [place] # Baso # Seg Neutrophils % Seg Neuts % (Manual) Lymphocytes % (Manual) Monocytes % (Manual) Nucleated RBC % Seg Neutrophils # Seg Neutrophils # Man Lymphocytes # (Manual) Monocytes # (Manual) Percent Retic Haptoglobin PT INR Fibrinogen D-Dimer POC ABG pH POC ABG pCO2 POC ABG pO2 Sodium 147 H Potassium 2.9 L* Chloride 110.6 H Carbon Dioxide 17 L BUN 28 H Creatinine 3.6 H Glucose 127 H POC Glucose 205 H Lactic Acid Calcium 7.3 L Phosphorus Magnesium Iron TIBC Transferrin Total Bilirubin Direct Bilirubin AST ALT Alkaline Phosphatase Lactate Dehydrogenase CK-MB (CK-2) Troponin T C-Reactive Protein Total Protein Albumin Triglycerides Cholesterol HDL Cholesterol Vitamin B12 Urine Creatinine Urine Total Protein Heparin-induced Plt Ab Hep Bs Antibody, Quant Crossmatch See Detail 12/08/16 12/08/16 12/08/16 12:36 19:00 19:00 WBC RBC Hgb Hct MCV MCHC RDW Plt Count Lymph % (Auto) [place] % (Auto) [place] # Baso # Seg Neutrophils % Seg Neuts % (Manual) Lymphocytes % (Manual) Monocytes % (Manual) Nucleated RBC % Seg Neutrophils # Seg Neutrophils # Man Lymphocytes # (Manual) Monocytes # (Manual) Percent Retic Haptoglobin PT 15.3 H INR 1.22 H Fibrinogen 563 H D-Dimer 5507.36 H POC ABG pH POC ABG pCO2 POC ABG pO2 Sodium Potassium Chloride Carbon Dioxide 21 L BUN Creatinine 1.7 H D Glucose 155 H POC Glucose 181 H Lactic Acid Calcium Phosphorus Magnesium Iron TIBC Transferrin Total Bilirubin Direct Bilirubin AST ALT Alkaline Phosphatase Lactate Dehydrogenase CK-MB (CK-2) Troponin T C-Reactive Protein Total Protein Albumin Triglycerides Cholesterol HDL Cholesterol Vitamin B12 Urine Creatinine Urine Total Protein Heparin-induced Plt Ab Hep Bs Antibody, Quant Crossmatch 12/08/16 12/08/16 12/08/16 19:00 19:00 21:30 WBC RBC 2.76 L Hgb 7.8 L Hct 23.7 L MCV MCHC RDW 17.0 H Plt Count 38 L Lymph % (Auto) [place] % (Auto) [place] # Baso # Seg Neutrophils % Seg Neuts % (Manual) Lymphocytes % (Manual) Monocytes % (Manual) Nucleated RBC % Seg Neutrophils # Seg Neutrophils # Man Lymphocytes # (Manual) Monocytes # (Manual) Percent Retic Haptoglobin 271 H PT INR Fibrinogen D-Dimer POC ABG pH POC ABG pCO2 POC ABG pO2 Sodium Potassium Chloride Carbon Dioxide BUN Creatinine Glucose POC Glucose Lactic Acid Calcium Phosphorus Magnesium Iron TIBC Transferrin Total Bilirubin Direct Bilirubin AST ALT Alkaline Phosphatase Lactate Dehydrogenase 382 H CK-MB (CK-2) Troponin T C-Reactive Protein Total Protein Albumin Triglycerides Cholesterol HDL Cholesterol Vitamin B12 Urine Creatinine Urine Total Protein Heparin-induced Plt Ab Hep Bs Antibody, Quant Crossmatch 12/08/16 12/08/16 12/09/16 23:32 23:44 05:22 WBC RBC Hgb Hct MCV MCHC RDW Plt Count Lymph % (Auto) [place] % (Auto) [place] # Baso # Seg Neutrophils % Seg Neuts % (Manual) Lymphocytes % (Manual) Monocytes % (Manual) Nucleated RBC % Seg Neutrophils # Seg Neutrophils # Man Lymphocytes # (Manual) Monocytes # (Manual) Percent Retic Haptoglobin PT INR Fibrinogen D-Dimer POC ABG pH 7.498 H POC ABG pCO2 25.2 L POC ABG pO2 137 H Sodium Potassium Chloride Carbon Dioxide BUN Creatinine Glucose POC Glucose 311 H 113 H Lactic Acid Calcium Phosphorus Magnesium Iron TIBC Transferrin Total Bilirubin Direct Bilirubin AST ALT Alkaline Phosphatase Lactate Dehydrogenase CK-MB (CK-2) Troponin T C-Reactive Protein Total Protein Albumin Triglycerides Cholesterol HDL Cholesterol Vitamin B12 Urine Creatinine Urine Total Protein Heparin-induced Plt Ab Hep Bs Antibody, Quant Crossmatch 12/09/16 12/09/16 12/09/16 06:00 11:29 11:59 WBC RBC Hgb Hct MCV MCHC RDW Plt Count Lymph % (Auto) [place] % (Auto) [place] # Baso # Seg Neutrophils % Seg Neuts % (Manual) Lymphocytes % (Manual) Monocytes % (Manual) Nucleated RBC % Seg Neutrophils # Seg Neutrophils # Man Lymphocytes # (Manual) Monocytes # (Manual) Percent Retic 0.23 L Haptoglobin PT INR Fibrinogen D-Dimer POC ABG pH POC ABG pCO2 POC ABG pO2 Sodium Potassium Chloride 110.2 H Carbon Dioxide 18 L BUN 19 H Creatinine 2.5 H Glucose 105 H POC Glucose 254 H Lactic Acid Calcium Phosphorus 2.00 L Magnesium Iron TIBC Transferrin Total Bilirubin Direct Bilirubin AST ALT Alkaline Phosphatase Lactate Dehydrogenase CK-MB (CK-2) Troponin T C-Reactive Protein Total Protein Albumin Triglycerides Cholesterol HDL Cholesterol Vitamin B12 Urine Creatinine Urine Total Protein Heparin-induced Plt Ab Hep Bs Antibody, Quant Crossmatch 12/09/16 12/09/16 12/09/16 12:02 13:27 13:27 WBC RBC Hgb Hct MCV MCHC RDW Plt Count Lymph % (Auto) [place] % (Auto) [place] # Baso # Seg Neutrophils % Seg Neuts % (Manual) Lymphocytes % (Manual) Monocytes % (Manual) Nucleated RBC % Seg Neutrophils # Seg Neutrophils # Man Lymphocytes # (Manual) Monocytes # (Manual) Percent Retic Haptoglobin PT INR Fibrinogen D-Dimer POC ABG pH 7.326 L POC ABG pCO2 POC ABG pO2 115 H Sodium Potassium Chloride Carbon Dioxide BUN Creatinine Glucose POC Glucose Lactic Acid Calcium Phosphorus Magnesium Iron 15 L TIBC 134 L Transferrin Total Bilirubin Direct Bilirubin AST ALT Alkaline Phosphatase Lactate Dehydrogenase CK-MB (CK-2) Troponin T C-Reactive Protein Total Protein Albumin Triglycerides Cholesterol HDL Cholesterol Vitamin B12 > 2000 H Urine Creatinine Urine Total Protein Heparin-induced Plt Ab Hep Bs Antibody, Quant Crossmatch 12/09/16 12/09/16 12/09/16 13:27 13:27 16:28 WBC RBC Hgb Hct MCV MCHC RDW Plt Count Lymph % (Auto) [place] % (Auto) [place] # Baso # Seg Neutrophils % Seg Neuts % (Manual) Lymphocytes % (Manual) Monocytes % (Manual) Nucleated RBC % Seg Neutrophils # Seg Neutrophils # Man Lymphocytes # (Manual) Monocytes # (Manual) Percent Retic Haptoglobin PT INR Fibrinogen D-Dimer POC ABG pH POC ABG pCO2 POC ABG pO2 Sodium Potassium Chloride Carbon Dioxide BUN Creatinine Glucose POC Glucose 199 H Lactic Acid Calcium Phosphorus Magnesium Iron TIBC Transferrin Total Bilirubin Direct Bilirubin AST ALT Alkaline Phosphatase Lactate Dehydrogenase CK-MB (CK-2) Troponin T C-Reactive Protein Total Protein Albumin Triglycerides Cholesterol HDL Cholesterol Vitamin B12 Urine Creatinine Urine Total Protein Heparin-induced Plt Ab Weak positive H Hep Bs Antibody, Quant <5 L Crossmatch 12/09/16 12/09/16 12/10/16 23:27 Unknown 05:36 WBC 11.3 H RBC 2.92 L Hgb 8.4 L Hct 25.3 L MCV MCHC RDW 16.9 H Plt Count 31 L Lymph % (Auto) [place] % (Auto) [place] # Baso # Seg Neutrophils % Seg Neuts % (Manual) Lymphocytes % (Manual) Monocytes % (Manual) Nucleated RBC % Seg Neutrophils # Seg Neutrophils # Man Lymphocytes # (Manual) Monocytes # (Manual) Percent Retic Haptoglobin PT INR Fibrinogen D-Dimer POC ABG pH POC ABG pCO2 POC ABG pO2 Sodium Potassium Chloride Carbon Dioxide BUN Creatinine Glucose POC Glucose 247 H 248 H Lactic Acid Calcium Phosphorus Magnesium Iron TIBC Transferrin Total Bilirubin Direct Bilirubin AST ALT Alkaline Phosphatase Lactate Dehydrogenase CK-MB (CK-2) Troponin T C-Reactive Protein Total Protein Albumin Triglycerides Cholesterol HDL Cholesterol Vitamin B12 Urine Creatinine Urine Total Protein Heparin-induced Plt Ab Hep Bs Antibody, Quant Crossmatch 12/10/16 12/10/16 12/10/16 09:55 09:55 11:49 WBC 21.2 H RBC 3.37 L Hgb 9.6 L Hct 29.5 L MCV MCHC RDW 16.3 H Plt Count 102 L D Lymph % (Auto) [place] % (Auto) [place] # Baso # Seg Neutrophils % Seg Neuts % (Manual) Lymphocytes % (Manual) Monocytes % (Manual) Nucleated RBC % Seg Neutrophils # Seg Neutrophils # Man Lymphocytes # (Manual) Monocytes # (Manual) Percent Retic Haptoglobin PT INR Fibrinogen D-Dimer POC ABG pH POC ABG pCO2 POC ABG pO2 Sodium Potassium Chloride 107.4 H Carbon Dioxide 21 L BUN 37 H Creatinine 4.2 H D Glucose 174 H POC Glucose 265 H Lactic Acid Calcium Phosphorus Magnesium Iron TIBC Transferrin Total Bilirubin Direct Bilirubin AST ALT Alkaline Phosphatase Lactate Dehydrogenase CK-MB (CK-2) Troponin T C-Reactive Protein Total Protein Albumin Triglycerides Cholesterol HDL Cholesterol Vitamin B12 Urine Creatinine Urine Total Protein Heparin-induced Plt Ab Hep Bs Antibody, Quant Crossmatch 12/10/16 12/10/16 12/11/16 17:56 23:44 04:30 WBC 23.5 H RBC 3.46 L Hgb 9.7 L Hct 30.1 L MCV MCHC RDW 16.4 H Plt Count 115 L Lymph % (Auto) [place] % (Auto) [place] # Baso # Seg Neutrophils % Seg Neuts % (Manual) 84.0 H Lymphocytes % (Manual) 5.0 L Monocytes % (Manual) 10.0 H Nucleated RBC % 1.0 H Seg Neutrophils # Seg Neutrophils # Man 19.7 H Lymphocytes # (Manual) Monocytes # (Manual) 2.4 H Percent Retic Haptoglobin PT INR Fibrinogen D-Dimer POC ABG pH POC ABG pCO2 POC ABG pO2 Sodium Potassium Chloride Carbon Dioxide BUN Creatinine Glucose POC Glucose 118 H 378 H Lactic Acid Calcium Phosphorus Magnesium Iron TIBC Transferrin Total Bilirubin Direct Bilirubin AST ALT Alkaline Phosphatase Lactate Dehydrogenase CK-MB (CK-2) Troponin T C-Reactive Protein Total Protein Albumin Triglycerides Cholesterol HDL Cholesterol Vitamin B12 Urine Creatinine Urine Total Protein Heparin-induced Plt Ab Hep Bs Antibody, Quant Crossmatch 12/11/16 12/11/16 12/11/16 04:30 05:33 12:48 WBC RBC Hgb Hct MCV MCHC RDW Plt Count Lymph % (Auto) [place] % (Auto) [place] # Baso # Seg Neutrophils % Seg Neuts % (Manual) Lymphocytes % (Manual) Monocytes % (Manual) Nucleated RBC % Seg Neutrophils # Seg Neutrophils # Man Lymphocytes # (Manual) Monocytes # (Manual) Percent Retic Haptoglobin PT INR Fibrinogen D-Dimer POC ABG pH POC ABG pCO2 POC ABG pO2 Sodium Potassium Chloride Carbon Dioxide 21 L BUN 50 H Creatinine 4.8 H Glucose 303 H POC Glucose 335 H 325 H Lactic Acid Calcium 8.2 L Phosphorus Magnesium Iron TIBC Transferrin Total Bilirubin Direct Bilirubin AST ALT Alkaline Phosphatase Lactate Dehydrogenase CK-MB (CK-2) Troponin T C-Reactive Protein Total Protein Albumin Triglycerides Cholesterol HDL Cholesterol Vitamin B12 Urine Creatinine Urine Total Protein Heparin-induced Plt Ab Hep Bs Antibody, Quant Crossmatch 12/11/16 12/11/16 12/12/16 17:49 21:16 00:49 WBC RBC Hgb Hct MCV MCHC RDW Plt Count Lymph % (Auto) [place] % (Auto) [place] # Baso # Seg Neutrophils % Seg Neuts % (Manual) Lymphocytes % (Manual) Monocytes % (Manual) Nucleated RBC % Seg Neutrophils # Seg Neutrophils # Man Lymphocytes # (Manual) Monocytes # (Manual) Percent Retic Haptoglobin PT INR Fibrinogen D-Dimer POC ABG pH POC ABG pCO2 POC ABG pO2 Sodium Potassium Chloride Carbon Dioxide BUN Creatinine Glucose POC Glucose 368 H 162 H 225 H Lactic Acid Calcium Phosphorus Magnesium Iron TIBC Transferrin Total Bilirubin Direct Bilirubin AST ALT Alkaline Phosphatase Lactate Dehydrogenase CK-MB (CK-2) Troponin T C-Reactive Protein Total Protein Albumin Triglycerides Cholesterol HDL Cholesterol Vitamin B12 Urine Creatinine Urine Total Protein Heparin-induced Plt Ab Hep Bs Antibody, Quant Crossmatch 12/12/16 12/12/16 12/12/16 06:09 07:52 08:18 WBC 24.1 H RBC 3.16 L Hgb 9.0 L Hct 29.4 L MCV MCHC RDW 16.6 H Plt Count 96 L Lymph % (Auto) [place] % (Auto) [place] # Baso # Seg Neutrophils % Seg Neuts % (Manual) 75.0 H Lymphocytes % (Manual) Monocytes % (Manual) Nucleated RBC % Seg Neutrophils # Seg Neutrophils # Man 18.1 H Lymphocytes # (Manual) Monocytes # (Manual) 1.4 H Percent Retic Haptoglobin PT INR Fibrinogen D-Dimer POC ABG pH POC ABG pCO2 POC ABG pO2 Sodium Potassium Chloride Carbon Dioxide BUN Creatinine Glucose POC Glucose 428 H 418 H Lactic Acid Calcium Phosphorus Magnesium Iron TIBC Transferrin Total Bilirubin Direct Bilirubin AST ALT Alkaline Phosphatase Lactate Dehydrogenase CK-MB (CK-2) Troponin T C-Reactive Protein Total Protein Albumin Triglycerides Cholesterol HDL Cholesterol Vitamin B12 Urine Creatinine Urine Total Protein Heparin-induced Plt Ab Hep Bs Antibody, Quant Crossmatch 12/12/16 12/12/16 12/12/16 08:18 11:31 17:03 WBC RBC Hgb Hct MCV MCHC RDW Plt Count Lymph % (Auto) [place] % (Auto) [place] # Baso # Seg Neutrophils % Seg Neuts % (Manual) Lymphocytes % (Manual) Monocytes % (Manual) Nucleated RBC % Seg Neutrophils # Seg Neutrophils # Man Lymphocytes # (Manual) Monocytes # (Manual) Percent Retic Haptoglobin PT INR Fibrinogen D-Dimer POC ABG pH POC ABG pCO2 POC ABG pO2 Sodium Potassium Chloride Carbon Dioxide 12 L D BUN 41 H Creatinine 4.5 H Glucose 369 H POC Glucose 212 H 422 H Lactic Acid Calcium Phosphorus Magnesium Iron TIBC Transferrin Total Bilirubin Direct Bilirubin AST ALT Alkaline Phosphatase Lactate Dehydrogenase CK-MB (CK-2) Troponin T C-Reactive Protein Total Protein Albumin Triglycerides Cholesterol HDL Cholesterol Vitamin B12 Urine Creatinine Urine Total Protein Heparin-induced Plt Ab Hep Bs Antibody, Quant Crossmatch 12/12/16 12/13/16 12/13/16 21:35 07:49 07:49 WBC 24.0 H RBC 2.90 L Hgb 8.3 L Hct 25.8 L MCV MCHC RDW 15.5 H Plt Count 120 L Lymph % (Auto) [place] % (Auto) [place] # Baso # Seg Neutrophils % Seg Neuts % (Manual) 89.0 H Lymphocytes % (Manual) 7.0 L Monocytes % (Manual) Nucleated RBC % Seg Neutrophils # Seg Neutrophils # Man 21.4 H Lymphocytes # (Manual) Monocytes # (Manual) Percent Retic Haptoglobin PT INR Fibrinogen D-Dimer POC ABG pH POC ABG pCO2 POC ABG pO2 Sodium Potassium 3.2 L Chloride Carbon Dioxide BUN 21 H Creatinine 3.0 H Glucose 21 L* POC Glucose 185 H Lactic Acid Calcium Phosphorus Magnesium Iron TIBC Transferrin Total Bilirubin Direct Bilirubin AST ALT Alkaline Phosphatase Lactate Dehydrogenase CK-MB (CK-2) Troponin T C-Reactive Protein Total Protein Albumin Triglycerides Cholesterol HDL Cholesterol Vitamin B12 Urine Creatinine Urine Total Protein Heparin-induced Plt Ab Hep Bs Antibody, Quant Crossmatch 12/13/16 12/13/16 12/13/16 09:57 11:02 16:52 WBC RBC Hgb Hct MCV MCHC RDW Plt Count Lymph % (Auto) [place] % (Auto) [place] # Baso # Seg Neutrophils % Seg Neuts % (Manual) Lymphocytes % (Manual) Monocytes % (Manual) Nucleated RBC % Seg Neutrophils # Seg Neutrophils # Man Lymphocytes # (Manual) Monocytes # (Manual) Percent Retic Haptoglobin PT INR Fibrinogen D-Dimer POC ABG pH POC ABG pCO2 POC ABG pO2 Sodium Potassium Chloride Carbon Dioxide BUN Creatinine Glucose POC Glucose < 40 L 231 H 312 H Lactic Acid Calcium Phosphorus Magnesium Iron TIBC Transferrin Total Bilirubin Direct Bilirubin AST ALT Alkaline Phosphatase Lactate Dehydrogenase CK-MB (CK-2) Troponin T C-Reactive Protein Total Protein Albumin Triglycerides Cholesterol HDL Cholesterol Vitamin B12 Urine Creatinine Urine Total Protein Heparin-induced Plt Ab Hep Bs Antibody, Quant Crossmatch 12/13/16 12/14/16 12/14/16 21:32 07:07 07:07 WBC 16.7 H RBC 2.80 L Hgb 7.9 L Hct 24.7 L MCV MCHC RDW 15.4 H Plt Count 131 L Lymph % (Auto) 13.1 L [place] % (Auto) [place] # 1.2 H Baso # Seg Neutrophils % 78.3 H Seg Neuts % (Manual) Lymphocytes % (Manual) Monocytes % (Manual) Nucleated RBC % Seg Neutrophils # 13.1 H Seg Neutrophils # Man Lymphocytes # (Manual) Monocytes # (Manual) Percent Retic Haptoglobin PT INR Fibrinogen D-Dimer POC ABG pH POC ABG pCO2 POC ABG pO2 Sodium Potassium 3.5 L Chloride Carbon Dioxide BUN 30 H Creatinine 4.6 H D Glucose 181 H POC Glucose 275 H Lactic Acid Calcium 7.7 L Phosphorus Magnesium Iron TIBC Transferrin Total Bilirubin Direct Bilirubin AST ALT Alkaline Phosphatase Lactate Dehydrogenase CK-MB (CK-2) Troponin T C-Reactive Protein Total Protein Albumin Triglycerides Cholesterol HDL Cholesterol Vitamin B12 Urine Creatinine Urine Total Protein Heparin-induced Plt Ab Hep Bs Antibody, Quant Crossmatch 12/14/16 12/14/16 12/14/16 07:46 11:35 16:24 WBC RBC Hgb Hct MCV MCHC RDW Plt Count Lymph % (Auto) [place] % (Auto) [place] # Baso # Seg Neutrophils % Seg Neuts % (Manual) Lymphocytes % (Manual) Monocytes % (Manual) Nucleated RBC % Seg Neutrophils # Seg Neutrophils # Man Lymphocytes # (Manual) Monocytes # (Manual) Percent Retic Haptoglobin PT INR Fibrinogen D-Dimer POC ABG pH POC ABG pCO2 POC ABG pO2 Sodium Potassium Chloride Carbon Dioxide BUN Creatinine Glucose POC Glucose 189 H 254 H 466 H Lactic Acid Calcium Phosphorus Magnesium Iron TIBC Transferrin Total Bilirubin Direct Bilirubin AST ALT Alkaline Phosphatase Lactate Dehydrogenase CK-MB (CK-2) Troponin T C-Reactive Protein Total Protein Albumin Triglycerides Cholesterol HDL Cholesterol Vitamin B12 Urine Creatinine Urine Total Protein Heparin-induced Plt Ab Hep Bs Antibody, Quant Crossmatch 12/14/16 12/15/16 12/15/16 20:57 06:27 07:46 WBC RBC Hgb Hct MCV MCHC RDW Plt Count Lymph % (Auto) [place] % (Auto) [place] # Baso # Seg Neutrophils % Seg Neuts % (Manual) Lymphocytes % (Manual) Monocytes % (Manual) Nucleated RBC % Seg Neutrophils # Seg Neutrophils # Man Lymphocytes # (Manual) Monocytes # (Manual) Percent Retic Haptoglobin PT INR Fibrinogen D-Dimer POC ABG pH POC ABG pCO2 POC ABG pO2 Sodium Potassium Chloride Carbon Dioxide BUN Creatinine Glucose POC Glucose 301 H 183 H 231 H Lactic Acid Calcium Phosphorus Magnesium Iron TIBC Transferrin Total Bilirubin Direct Bilirubin AST ALT Alkaline Phosphatase Lactate Dehydrogenase CK-MB (CK-2) Troponin T C-Reactive Protein Total Protein Albumin Triglycerides Cholesterol HDL Cholesterol Vitamin B12 Urine Creatinine Urine Total Protein Heparin-induced Plt Ab Hep Bs Antibody, Quant Crossmatch 12/15/16 12/15/16 12/15/16 11:38 15:34 20:51 WBC RBC Hgb Hct MCV MCHC RDW Plt Count Lymph % (Auto) [place] % (Auto) [place] # Baso # Seg Neutrophils % Seg Neuts % (Manual) Lymphocytes % (Manual) Monocytes % (Manual) Nucleated RBC % Seg Neutrophils # Seg Neutrophils # Man Lymphocytes # (Manual) Monocytes # (Manual) Percent Retic Haptoglobin PT INR Fibrinogen D-Dimer POC ABG pH POC ABG pCO2 POC ABG pO2 Sodium Potassium Chloride Carbon Dioxide BUN Creatinine Glucose POC Glucose 375 H 313 H 274 H Lactic Acid Calcium Phosphorus Magnesium Iron TIBC Transferrin Total Bilirubin Direct Bilirubin AST ALT Alkaline Phosphatase Lactate Dehydrogenase CK-MB (CK-2) Troponin T C-Reactive Protein Total Protein Albumin Triglycerides Cholesterol HDL Cholesterol Vitamin B12 Urine Creatinine Urine Total Protein Heparin-induced Plt Ab Hep Bs Antibody, Quant Crossmatch 12/16/16 12/16/16 12/16/16 08:26 09:12 17:13 WBC RBC Hgb Hct MCV MCHC RDW Plt Count Lymph % (Auto) [place] % (Auto) [place] # Baso # Seg Neutrophils % Seg Neuts % (Manual) Lymphocytes % (Manual) Monocytes % (Manual) Nucleated RBC % Seg Neutrophils # Seg Neutrophils # Man Lymphocytes # (Manual) Monocytes # (Manual) Percent Retic Haptoglobin PT INR Fibrinogen D-Dimer POC ABG pH POC ABG pCO2 POC ABG pO2 Sodium Potassium Chloride Carbon Dioxide BUN Creatinine Glucose POC Glucose 59 L 127 H > 500 H Lactic Acid Calcium Phosphorus Magnesium Iron TIBC Transferrin Total Bilirubin Direct Bilirubin AST ALT Alkaline Phosphatase Lactate Dehydrogenase CK-MB (CK-2) Troponin T C-Reactive Protein Total Protein Albumin Triglycerides Cholesterol HDL Cholesterol Vitamin B12 Urine Creatinine Urine Total Protein Heparin-induced Plt Ab Hep Bs Antibody, Quant Crossmatch 12/16/16 12/16/16 12/16/16 22:59 Unknown Unknown WBC 17.2 H RBC 2.83 L Hgb 7.9 L Hct 24.4 L MCV MCHC RDW Plt Count Lymph % (Auto) 9.2 L [place] % (Auto) [place] # 0.9 H Baso # Seg Neutrophils % 84.1 H Seg Neuts % (Manual) Lymphocytes % (Manual) Monocytes % (Manual) Nucleated RBC % Seg Neutrophils # 14.5 H Seg Neutrophils # Man Lymphocytes # (Manual) Monocytes # (Manual) Percent Retic Haptoglobin PT INR Fibrinogen D-Dimer POC ABG pH POC ABG pCO2 POC ABG pO2 Sodium Potassium Chloride Carbon Dioxide BUN 43 H Creatinine 5.4 H Glucose 131 H POC Glucose 320 H Lactic Acid Calcium 6.9 L Phosphorus Magnesium Iron TIBC Transferrin Total Bilirubin Direct Bilirubin AST ALT Alkaline Phosphatase Lactate Dehydrogenase CK-MB (CK-2) Troponin T C-Reactive Protein Total Protein Albumin Triglycerides Cholesterol HDL Cholesterol Vitamin B12 Urine Creatinine Urine Total Protein Heparin-induced Plt Ab Hep Bs Antibody, Quant Crossmatch 12/17/16 12/17/16 12/17/16 08:26 08:56 09:52 WBC RBC Hgb Hct MCV MCHC RDW Plt Count Lymph % (Auto) [place] % (Auto) [place] # Baso # Seg Neutrophils % Seg Neuts % (Manual) Lymphocytes % (Manual) Monocytes % (Manual) Nucleated RBC % Seg Neutrophils # Seg Neutrophils # Man Lymphocytes # (Manual) Monocytes # (Manual) Percent Retic Haptoglobin PT INR Fibrinogen D-Dimer POC ABG pH POC ABG pCO2 POC ABG pO2 Sodium Potassium Chloride Carbon Dioxide BUN Creatinine Glucose POC Glucose < 40 L 40 L 133 H Lactic Acid Calcium Phosphorus Magnesium Iron TIBC Transferrin Total Bilirubin Direct Bilirubin AST ALT Alkaline Phosphatase Lactate Dehydrogenase CK-MB (CK-2) Troponin T C-Reactive Protein Total Protein Albumin Triglycerides Cholesterol HDL Cholesterol Vitamin B12 Urine Creatinine Urine Total Protein Heparin-induced Plt Ab Hep Bs Antibody, Quant Crossmatch 12/17/16 12/17/16 12/17/16 12:51 16:08 21:00 WBC RBC Hgb Hct MCV MCHC RDW Plt Count Lymph % (Auto) [place] % (Auto) [place] # Baso # Seg Neutrophils % Seg Neuts % (Manual) Lymphocytes % (Manual) Monocytes % (Manual) Nucleated RBC % Seg Neutrophils # Seg Neutrophils # Man Lymphocytes # (Manual) Monocytes # (Manual) Percent Retic Haptoglobin PT INR Fibrinogen D-Dimer POC ABG pH POC ABG pCO2 POC ABG pO2 Sodium Potassium Chloride Carbon Dioxide BUN Creatinine Glucose POC Glucose 177 H 303 H 489 H Lactic Acid Calcium Phosphorus Magnesium Iron TIBC Transferrin Total Bilirubin Direct Bilirubin AST ALT Alkaline Phosphatase Lactate Dehydrogenase CK-MB (CK-2) Troponin T C-Reactive Protein Total Protein Albumin Triglycerides Cholesterol HDL Cholesterol Vitamin B12 Urine Creatinine Urine Total Protein Heparin-induced Plt Ab Hep Bs Antibody, Quant Crossmatch 12/17/16 12/17/16 12/18/16 Unknown Unknown 05:50 WBC 16.6 H 15.6 H RBC 2.63 L 2.58 L Hgb 7.5 L 7.3 L Hct 23.3 L 23.0 L MCV MCHC RDW 15.3 H 15.9 H Plt Count Lymph % (Auto) 7.7 L 8.7 L [place] % (Auto) [place] # 0.9 H Baso # Seg Neutrophils % 85.8 H 83.6 H Seg Neuts % (Manual) Lymphocytes % (Manual) Monocytes % (Manual) Nucleated RBC % Seg Neutrophils # 14.3 H 13.0 H Seg Neutrophils # Man Lymphocytes # (Manual) Monocytes # (Manual) Percent Retic Haptoglobin PT INR Fibrinogen D-Dimer POC ABG pH POC ABG pCO2 POC ABG pO2 Sodium Potassium 3.5 L Chloride Carbon Dioxide BUN 47 H Creatinine 5.2 H Glucose 173 H POC Glucose Lactic Acid Calcium 6.9 L Phosphorus Magnesium Iron TIBC Transferrin Total Bilirubin Direct Bilirubin AST ALT Alkaline Phosphatase Lactate Dehydrogenase CK-MB (CK-2) Troponin T C-Reactive Protein Total Protein Albumin Triglycerides Cholesterol HDL Cholesterol Vitamin B12 Urine Creatinine Urine Total Protein Heparin-induced Plt Ab Hep Bs Antibody, Quant Crossmatch 12/18/16 12/18/16 12/18/16 05:50 09:09 16:46 WBC RBC Hgb Hct MCV MCHC RDW Plt Count Lymph % (Auto) [place] % (Auto) [place] # Baso # Seg Neutrophils % Seg Neuts % (Manual) Lymphocytes % (Manual) Monocytes % (Manual) Nucleated RBC % Seg Neutrophils # Seg Neutrophils # Man Lymphocytes # (Manual) Monocytes # (Manual) Percent Retic Haptoglobin PT INR Fibrinogen D-Dimer POC ABG pH POC ABG pCO2 POC ABG pO2 Sodium Potassium Chloride Carbon Dioxide 17 L BUN 46 H Creatinine 5.0 H Glucose 252 H POC Glucose 349 H 324 H Lactic Acid Calcium 6.8 L Phosphorus Magnesium Iron TIBC Transferrin Total Bilirubin Direct Bilirubin AST ALT Alkaline Phosphatase Lactate Dehydrogenase CK-MB (CK-2) Troponin T C-Reactive Protein Total Protein Albumin Triglycerides Cholesterol HDL Cholesterol Vitamin B12 Urine Creatinine Urine Total Protein Heparin-induced Plt Ab Hep Bs Antibody, Quant Crossmatch 12/18/16 12/19/16 12/19/16 21:14 08:12 10:23 WBC 13.7 H RBC 2.60 L Hgb 7.5 L Hct 23.1 L MCV MCHC RDW 15.7 H Plt Count Lymph % (Auto) 9.1 L [place] % (Auto) [place] # 0.9 H Baso # Seg Neutrophils % 82.2 H Seg Neuts % (Manual) Lymphocytes % (Manual) Monocytes % (Manual) Nucleated RBC % Seg Neutrophils # 11.3 H Seg Neutrophils # Man Lymphocytes # (Manual) Monocytes # (Manual) Percent Retic Haptoglobin PT INR Fibrinogen D-Dimer POC ABG pH POC ABG pCO2 POC ABG pO2 Sodium Potassium Chloride Carbon Dioxide BUN Creatinine Glucose POC Glucose 316 H 464 H Lactic Acid Calcium Phosphorus Magnesium Iron TIBC Transferrin Total Bilirubin Direct Bilirubin AST ALT Alkaline Phosphatase Lactate Dehydrogenase CK-MB (CK-2) Troponin T C-Reactive Protein Total Protein Albumin Triglycerides Cholesterol HDL Cholesterol Vitamin B12 Urine Creatinine Urine Total Protein Heparin-induced Plt Ab Hep Bs Antibody, Quant Crossmatch 12/19/16 12/19/16 12/19/16 10:23 11:39 16:00 WBC RBC Hgb Hct MCV MCHC RDW Plt Count Lymph % (Auto) [place] % (Auto) [place] # Baso # Seg Neutrophils % Seg Neuts % (Manual) Lymphocytes % (Manual) Monocytes % (Manual) Nucleated RBC % Seg Neutrophils # Seg Neutrophils # Man Lymphocytes # (Manual) Monocytes # (Manual) Percent Retic Haptoglobin PT INR Fibrinogen D-Dimer POC ABG pH POC ABG pCO2 POC ABG pO2 Sodium Potassium 3.5 L Chloride Carbon Dioxide 14 L BUN 22 H Creatinine 3.2 H Glucose 446 H POC Glucose 344 H 467 H Lactic Acid Calcium 6.9 L Phosphorus 1.70 L D Magnesium Iron TIBC Transferrin Total Bilirubin Direct Bilirubin AST ALT Alkaline Phosphatase Lactate Dehydrogenase CK-MB (CK-2) Troponin T C-Reactive Protein Total Protein Albumin Triglycerides Cholesterol HDL Cholesterol Vitamin B12 Urine Creatinine Urine Total Protein Heparin-induced Plt Ab Hep Bs Antibody, Quant Crossmatch 12/19/16 12/19/16 12/19/16 16:35 16:35 21:16 WBC 19.3 H RBC 2.37 L Hgb 6.9 L Hct 21.8 L MCV MCHC RDW 16.7 H Plt Count Lymph % (Auto) [place] % (Auto) [place] # Baso # Seg Neutrophils % Seg Neuts % (Manual) Lymphocytes % (Manual) Monocytes % (Manual) Nucleated RBC % Seg Neutrophils # Seg Neutrophils # Man Lymphocytes # (Manual) Monocytes # (Manual) Percent Retic Haptoglobin PT INR Fibrinogen D-Dimer POC ABG pH POC ABG pCO2 POC ABG pO2 Sodium Potassium 3.4 L Chloride Carbon Dioxide 17 L BUN 23 H Creatinine 3.2 H Glucose 427 H POC Glucose 397 H Lactic Acid Calcium 6.9 L Phosphorus 2.40 L D Magnesium Iron TIBC Transferrin Total Bilirubin Direct Bilirubin AST ALT Alkaline Phosphatase Lactate Dehydrogenase CK-MB (CK-2) Troponin T C-Reactive Protein Total Protein Albumin Triglycerides Cholesterol HDL Cholesterol Vitamin B12 Urine Creatinine Urine Total Protein Heparin-induced Plt Ab Hep Bs Antibody, Quant Crossmatch 12/20/16 12/20/16 12/20/16 06:00 06:00 07:55 WBC 17.5 H RBC 2.54 L Hgb 7.3 L Hct 23.5 L MCV MCHC RDW 16.4 H Plt Count Lymph % (Auto) 9.0 L [place] % (Auto) [place] # 1.1 H Baso # Seg Neutrophils % 83.0 H Seg Neuts % (Manual) Lymphocytes % (Manual) Monocytes % (Manual) Nucleated RBC % Seg Neutrophils # 14.5 H Seg Neutrophils # Man Lymphocytes # (Manual) Monocytes # (Manual) Percent Retic Haptoglobin PT INR Fibrinogen D-Dimer POC ABG pH POC ABG pCO2 POC ABG pO2 Sodium 136 L Potassium Chloride 92.4 L Carbon Dioxide 15 L BUN Creatinine 2.6 H Glucose 475 H POC Glucose > 500 H Lactic Acid Calcium Phosphorus Magnesium Iron TIBC Transferrin Total Bilirubin Direct Bilirubin AST ALT Alkaline Phosphatase Lactate Dehydrogenase CK-MB (CK-2) Troponin T C-Reactive Protein Total Protein Albumin Triglycerides Cholesterol HDL Cholesterol Vitamin B12 Urine Creatinine Urine Total Protein Heparin-induced Plt Ab Hep Bs Antibody, Quant Crossmatch 12/20/16 12/20/16 12/20/16 11:21 16:01 22:33 WBC RBC Hgb Hct MCV MCHC RDW Plt Count Lymph % (Auto) [place] % (Auto) [place] # Baso # Seg Neutrophils % Seg Neuts % (Manual) Lymphocytes % (Manual) Monocytes % (Manual) Nucleated RBC % Seg Neutrophils # Seg Neutrophils # Man Lymphocytes # (Manual) Monocytes # (Manual) Percent Retic Haptoglobin PT INR Fibrinogen D-Dimer POC ABG pH POC ABG pCO2 POC ABG pO2 Sodium Potassium Chloride Carbon Dioxide BUN Creatinine Glucose POC Glucose > 500 H 446 H > 500 H Lactic Acid Calcium Phosphorus Magnesium Iron TIBC Transferrin Total Bilirubin Direct Bilirubin AST ALT Alkaline Phosphatase Lactate Dehydrogenase CK-MB (CK-2) Troponin T C-Reactive Protein Total Protein Albumin Triglycerides Cholesterol HDL Cholesterol Vitamin B12 Urine Creatinine Urine Total Protein Heparin-induced Plt Ab Hep Bs Antibody, Quant Crossmatch 12/20/16 12/20/16 12/21/16 22:37 23:00 00:48 WBC RBC Hgb Hct MCV MCHC RDW Plt Count Lymph % (Auto) [place] % (Auto) [place] # Baso # Seg Neutrophils % Seg Neuts % (Manual) Lymphocytes % (Manual) Monocytes % (Manual) Nucleated RBC % Seg Neutrophils # Seg Neutrophils # Man Lymphocytes # (Manual) Monocytes # (Manual) Percent Retic Haptoglobin PT INR Fibrinogen D-Dimer POC ABG pH POC ABG pCO2 POC ABG pO2 Sodium 128 L D Potassium Chloride 83.2 L Carbon Dioxide 11 L BUN 32 H Creatinine 3.5 H Glucose 822 H* POC Glucose > 500 H > 500 H Lactic Acid Calcium 8.2 L Phosphorus Magnesium Iron TIBC Transferrin Total Bilirubin Direct Bilirubin AST ALT Alkaline Phosphatase Lactate Dehydrogenase CK-MB (CK-2) Troponin T C-Reactive Protein Total Protein Albumin Triglycerides Cholesterol HDL Cholesterol Vitamin B12 Urine Creatinine Urine Total Protein Heparin-induced Plt Ab Hep Bs Antibody, Quant Crossmatch 12/21/16 12/21/16 12/21/16 03:17 05:00 05:00 WBC 15.7 H RBC 2.32 L Hgb 6.8 L Hct 20.6 L MCV MCHC RDW 16.3 H Plt Count Lymph % (Auto) 11.5 L [place] % (Auto) 7.4 H [place] # 1.2 H Baso # Seg Neutrophils % 78.7 H Seg Neuts % (Manual) Lymphocytes % (Manual) Monocytes % (Manual) Nucleated RBC % Seg Neutrophils # 12.4 H Seg Neutrophils # Man Lymphocytes # (Manual) Monocytes # (Manual) Percent Retic Haptoglobin PT INR Fibrinogen D-Dimer POC ABG pH POC ABG pCO2 POC ABG pO2 Sodium Potassium Chloride 95.3 L Carbon Dioxide 20 L D BUN 32 H Creatinine 3.7 H Glucose 243 H POC Glucose 428 H Lactic Acid Calcium 8.1 L Phosphorus Magnesium Iron TIBC 193.20 L Transferrin 138 L Total Bilirubin Direct Bilirubin AST ALT Alkaline Phosphatase Lactate Dehydrogenase CK-MB (CK-2) Troponin T C-Reactive Protein Total Protein Albumin Triglycerides Cholesterol HDL Cholesterol Vitamin B12 Urine Creatinine Urine Total Protein Heparin-induced Plt Ab Hep Bs Antibody, Quant Crossmatch 12/21/16 12/21/16 12/21/16 05:40 06:49 08:20 WBC RBC Hgb Hct MCV MCHC RDW Plt Count Lymph % (Auto) [place] % (Auto) [place] # Baso # Seg Neutrophils % Seg Neuts % (Manual) Lymphocytes % (Manual) Monocytes % (Manual) Nucleated RBC % Seg Neutrophils # Seg Neutrophils # Man Lymphocytes # (Manual) Monocytes # (Manual) Percent Retic Haptoglobin PT INR Fibrinogen D-Dimer POC ABG pH POC ABG pCO2 POC ABG pO2 Sodium Potassium Chloride Carbon Dioxide BUN Creatinine Glucose POC Glucose 271 H 236 H 222 H Lactic Acid Calcium Phosphorus Magnesium Iron TIBC Transferrin Total Bilirubin Direct Bilirubin AST ALT Alkaline Phosphatase Lactate Dehydrogenase CK-MB (CK-2) Troponin T C-Reactive Protein Total Protein Albumin Triglycerides Cholesterol HDL Cholesterol Vitamin B12 Urine Creatinine Urine Total Protein Heparin-induced Plt Ab Hep Bs Antibody, Quant Crossmatch 12/21/16 12/21/16 12/21/16 16:28 18:26 21:10 WBC RBC Hgb Hct MCV MCHC RDW Plt Count Lymph % (Auto) [place] % (Auto) [place] # Baso # Seg Neutrophils % Seg Neuts % (Manual) Lymphocytes % (Manual) Monocytes % (Manual) Nucleated RBC % Seg Neutrophils # Seg Neutrophils # Man Lymphocytes # (Manual) Monocytes # (Manual) Percent Retic Haptoglobin PT INR Fibrinogen D-Dimer POC ABG pH POC ABG pCO2 POC ABG pO2 Sodium Potassium Chloride Carbon Dioxide BUN Creatinine Glucose POC Glucose < 40 L 62 L 255 H Lactic Acid Calcium Phosphorus Magnesium Iron TIBC Transferrin Total Bilirubin Direct Bilirubin AST ALT Alkaline Phosphatase Lactate Dehydrogenase CK-MB (CK-2) Troponin T C-Reactive Protein Total Protein Albumin Triglycerides Cholesterol HDL Cholesterol Vitamin B12 Urine Creatinine Urine Total Protein Heparin-induced Plt Ab Hep Bs Antibody, Quant Crossmatch 12/22/16 12/22/16 12/22/16 03:38 06:45 06:45 WBC 17.4 H RBC 2.26 L Hgb 6.6 L Hct 20.5 L MCV MCHC RDW 15.7 H Plt Count Lymph % (Auto) 8.1 L [place] % (Auto) [place] # 0.9 H Baso # 0.2 H Seg Neutrophils % 84.3 H Seg Neuts % (Manual) Lymphocytes % (Manual) Monocytes % (Manual) Nucleated RBC % Seg Neutrophils # 14.6 H Seg Neutrophils # Man Lymphocytes # (Manual) Monocytes # (Manual) Percent Retic Haptoglobin PT INR Fibrinogen D-Dimer POC ABG pH POC ABG pCO2 POC ABG pO2 Sodium Potassium 3.3 L Chloride 95.5 L Carbon Dioxide 20 L BUN Creatinine 2.5 H Glucose 308 H POC Glucose 430 H Lactic Acid Calcium 8.2 L Phosphorus Magnesium Iron TIBC Transferrin Total Bilirubin Direct Bilirubin AST ALT Alkaline Phosphatase Lactate Dehydrogenase CK-MB (CK-2) Troponin T C-Reactive Protein Total Protein Albumin Triglycerides Cholesterol HDL Cholesterol Vitamin B12 Urine Creatinine Urine Total Protein Heparin-induced Plt Ab Hep Bs Antibody, Quant Crossmatch 12/22/16 12/22/16 12/22/16 08:31 12:50 15:46 WBC RBC Hgb Hct MCV MCHC RDW Plt Count Lymph % (Auto) [place] % (Auto) [place] # Baso # Seg Neutrophils % Seg Neuts % (Manual) Lymphocytes % (Manual) Monocytes % (Manual) Nucleated RBC % Seg Neutrophils # Seg Neutrophils # Man Lymphocytes # (Manual) Monocytes # (Manual) Percent Retic Haptoglobin PT INR Fibrinogen D-Dimer POC ABG pH POC ABG pCO2 POC ABG pO2 Sodium Potassium Chloride Carbon Dioxide BUN Creatinine Glucose POC Glucose 306 H 391 H Lactic Acid Calcium Phosphorus Magnesium Iron TIBC Transferrin Total Bilirubin Direct Bilirubin AST ALT Alkaline Phosphatase Lactate Dehydrogenase CK-MB (CK-2) Troponin T C-Reactive Protein Total Protein Albumin Triglycerides Cholesterol HDL Cholesterol Vitamin B12 Urine Creatinine Urine Total Protein Heparin-induced Plt Ab Hep Bs Antibody, Quant Crossmatch See Detail 12/22/16 12/22/16 12/23/16 17:13 21:45 06:42 WBC 17.9 H RBC 2.75 L Hgb 8.1 L Hct 24.8 L MCV MCHC RDW 17.1 H Plt Count Lymph % (Auto) [place] % (Auto) [place] # Baso # Seg Neutrophils % Seg Neuts % (Manual) Lymphocytes % (Manual) Monocytes % (Manual) Nucleated RBC % Seg Neutrophils # Seg Neutrophils # Man Lymphocytes # (Manual) Monocytes # (Manual) Percent Retic Haptoglobin PT INR Fibrinogen D-Dimer POC ABG pH POC ABG pCO2 POC ABG pO2 Sodium Potassium Chloride Carbon Dioxide BUN Creatinine Glucose POC Glucose > 500 H 449 H Lactic Acid Calcium Phosphorus Magnesium Iron TIBC Transferrin Total Bilirubin Direct Bilirubin AST ALT Alkaline Phosphatase Lactate Dehydrogenase CK-MB (CK-2) Troponin T C-Reactive Protein Total Protein Albumin Triglycerides Cholesterol HDL Cholesterol Vitamin B12 Urine Creatinine Urine Total Protein Heparin-induced Plt Ab Hep Bs Antibody, Quant Crossmatch 12/23/16 12/23/16 12/23/16 06:42 07:46 11:33 WBC RBC Hgb Hct MCV MCHC RDW Plt Count Lymph % (Auto) [place] % (Auto) [place] # Baso # Seg Neutrophils % Seg Neuts % (Manual) Lymphocytes % (Manual) Monocytes % (Manual) Nucleated RBC % Seg Neutrophils # Seg Neutrophils # Man Lymphocytes # (Manual) Monocytes # (Manual) Percent Retic Haptoglobin PT INR Fibrinogen D-Dimer POC ABG pH POC ABG pCO2 POC ABG pO2 Sodium Potassium 3.5 L Chloride 94.7 L Carbon Dioxide 19 L BUN 22 H Creatinine 2.9 H Glucose 401 H POC Glucose 449 H 298 H Lactic Acid Calcium 8.3 L Phosphorus Magnesium Iron TIBC Transferrin Total Bilirubin Direct Bilirubin AST ALT Alkaline Phosphatase Lactate Dehydrogenase CK-MB (CK-2) Troponin T C-Reactive Protein Total Protein Albumin Triglycerides Cholesterol HDL Cholesterol Vitamin B12 Urine Creatinine Urine Total Protein Heparin-induced Plt Ab Hep Bs Antibody, Quant Crossmatch 12/23/16 18:24 WBC RBC Hgb Hct MCV MCHC RDW Plt Count Lymph % (Auto) [place] % (Auto) [place] # Baso # Seg Neutrophils % Seg Neuts % (Manual) Lymphocytes % (Manual) Monocytes % (Manual) Nucleated RBC % Seg Neutrophils # Seg Neutrophils # Man Lymphocytes # (Manual) Monocytes # (Manual) Percent Retic Haptoglobin PT INR Fibrinogen D-Dimer POC ABG pH POC ABG pCO2 POC ABG pO2 Sodium Potassium Chloride Carbon Dioxide BUN Creatinine Glucose POC Glucose 177 H Lactic Acid Calcium Phosphorus Magnesium Iron TIBC Transferrin Total Bilirubin Direct Bilirubin AST ALT Alkaline Phosphatase Lactate Dehydrogenase CK-MB (CK-2) Troponin T C-Reactive Protein Total Protein Albumin Triglycerides Cholesterol HDL Cholesterol Vitamin B12 Urine Creatinine Urine Total Protein Heparin-induced Plt Ab Hep Bs Antibody, Quant Crossmatch Chest x-ray: report reviewed (New right basilar opacity.), image reviewed
[2016-12-24 05:54] LABS: BUN/Creatinine Ratio 6.11; Chloride 95.8 mmol/L (98-107); Potassium 3.1 mmol/L (3.6-5.0)
[2016-12-24] MEDS: LOVENOX SUB-Q SCH (09:49)
--- NOTE | 2016-12-24 09:52 | Progress Note ---
Assessment and Plan (1) DKA (diabetic ketoacidoses) Current Visit: Yes Status: Acute Qualifiers: Diabetes mellitus type: type 1 Diabetes mellitus complication detail: without coma Diabetes mellitus group home insulin use: D Qualified Code(s): E10.10 - Type 1 diabetes mellitus with ketoacidosis without coma Plan to address problem: S/P DKA on Insulin drip. Now on sliding scale insulin as per Primary team (2) severe renal failure Current Visit: No Status: Acute Plan to address problem: will hold HD for now will order corona and 24 creatinine clearance Monitor I/O's Renally dose medications Obtain daily weights Renal diet (3) Hypertensive chronic kidney disease Current Visit: Yes Status: Acute Plan to address problem: Continue on anti-hypertensive agent. On Metoprolol. (4) Leukocytosis Current Visit: Yes Status: Acute Qualifiers: Leukocytosis type: L Plan to address problem: As per ID (5) Anemia Current Visit: Yes Status: Acute Qualifiers: Anemia type: A Iron deficiency anemia type: I Vitamin B12 deficiency anemia type: V Folate deficiency anemia type: F Bone marrow failure anemia type: B Hemolytic anemia type: H Other causes of anemia: O Chronic kidney disease stage: C Plan to address problem: On Epogen 20,000 units with HD Subjective Date of service: 12/24/16 Principal diagnosis: Sepsis; Pneumonia; ASHELY on dialysis; Diabetes Interval history: tolerated HD well yesterday Objective - Vital Signs Vital signs: Vital Signs - 12hr 12/24/16 12/24/16 12/24/16 00:00 04:00 08:58 Temperature 99.6 F 98.9 F 98.3 F Pulse Rate [ 113 H 80 95 H Right Radial] Respiratory 14 18 18 Rate Blood Pressure 138/85 140/80 125/74 [Right Arm] O2 Sat by Pulse 100 99 98 Oximetry - General Appearance General appearance: well-developed, well-nourished EENT: ATNC, PERRL Neck: no JVD, no carotid bruit Respiratory: Present: Clear to Ascultation Cardiology: regular, S1S2 Gastrointestinal: normoactive bowel sounds, no tenderness, no distended Integumentary: no rash, warm and dry Neurologic: no focal deficit, no asterixis, alert and oriented x3 Musculoskeletal: other (no edema in BLE) Psychiatric: mood/affect appropriate, cooperative - Lab 12/23/16 06:42 12/24/16 05:00 Most recent lab results Calcium 9.0 mg/dL (8.4-10.2) 12/24/16 05:00 Phosphorus 3.70 mg/dL (2.5-4.5) 12/21/16 05:00 Magnesium 1.90 mg/dL (1.7-2.3) 12/11/16 04:30 Urine Creatinine 29.5 mg/dL (0.1-20.0) H 12/04/16 11:25 Urine Sodium 26 mEq/L 12/04/16 11:25 Urine Total Protein 33 mg/dL (5-11.8) H 12/04/16 11:25
[2016-12-24] MEDS: LOPRESSOR PO SCH ×2 (09:54→22:29)
[2016-12-24] MEDS: PEPCID PO SCH (09:54)
[2016-12-24] MEDS: PERCOCET 5/325 PO PRN ×3 (09:54→22:28)
[2016-12-24] MEDS: NOVOLOG SUB-Q SCH ×4 (09:55→21:33)
--- NOTE | 2016-12-24 10:24 | Progress Note ---
Assessment and Plan - Patient Problems (1) Pulmonary infiltrate in right lung on chest x-ray Current Visit: Yes Status: Acute Plan to address problem: On antibiotics. Follow up CXR in 48hours to monitor the new developing infiltrate on the RLL- probable aspiration. Bronchodilators Supplemental oxygen to keep O2 sats>94% Airway clearance techniques (2) Metabolic encephalopathy Current Visit: Yes Status: Acute Plan to address problem: Resolved (3) Leukocytosis Current Visit: Yes Status: Acute Qualifiers: Leukocytosis type: L Plan to address problem: Persistent. Still on antibiotics. 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 Continue with accucheck and glycemic control. Currently on insulin therapy. Primary service following (5) Acute renal failure Current Visit: No Status: Acute Qualifiers: Acute renal failure type: A Plan to address problem: Has required supportive HD. Renal following Subjective Date of service: 12/24/16 Principal diagnosis: Sepsis; Pneumonia; ASHELY on dialysis; Diabetes Interval history: No acute overnight events. No fevers or chills. No chest pain or shortness of breath On oxygen via nasal canula at 2L/min Objective - Exam Narrative Exam: Gen Appearance: No acute distress, lying quietly in bed, chronically ill looking Right chest wall permacath HEENT: normocephalic, atraumatic Neck: supple, no JVD Lungs: Clear to auscultation bilaterally, no wheeze. Heart: S1 and S2 regular, no murmurs or gallop Abdomen: Soft non-tender, non-distended, normal bowel sounds Extremity: No edema, clubbing or cyanosis Neuro : Awake, alert,oriented x 3, moves all extremities Vital Signs - 12hr 12/24/16 12/24/16 12/24/16 00:00 04:00 08:58 Temperature 99.6 F 98.9 F 98.3 F Pulse Rate Pulse Rate [ 113 H 80 95 H Right Radial] Respiratory 14 18 18 Rate Blood Pressure Blood Pressure 138/85 140/80 125/74 [Right Arm] O2 Sat by Pulse 100 99 98 Oximetry 12/24/16 09:54 Temperature Pulse Rate 95 H Pulse Rate [ Right Radial] Respiratory 20 Rate Blood Pressure 124/74 Blood Pressure [Right Arm] O2 Sat by Pulse Oximetry Constitutional: no acute distress, asleep Eyes: non-icteric ENT: oropharynx moist Neck: supple, no lymphadenopathy Effort: normal Ascultation: Right: rhonchi, Bilateral: diminished breath sounds, rales (R>L lungs) Cardiovascular: regular rate and rhythm Gastrointestinal: normoactive bowel sounds, soft, non-tender, non-distended Integumentary: normal Extremities: no cyanosis, no edema, pulses normal, no ischemia or petechiae Neurologic: normal mental status, non-focal exam, pupils equal and round, motor strength normal and Psychiatric: mood appropriate, affect normal CBC and BMP: 12/23/16 06:42 12/25/16 16:42 ABG, PT/INR, D-dimer: ABG POC ABG pH 7.326 (7.35-7.45) L 12/09/16 12:02 POC ABG pCO2 37.7 (35-45) 12/09/16 12:02 POC ABG pO2 115 (80-105) H 12/09/16 12:02 POC ABG HCO3 19.7 12/09/16 12:02 POC ABG Total CO2 21 12/09/16 12:02 POC ABG O2 Sat 98 12/09/16 12:02 PT/INR, D-dimer PT 15.3 Sec. (12.2-14.9) H 12/08/16 19:00 INR 1.22 (0.87-1.13) H 12/08/16 19:00 D-Dimer 5507.36 ng/mlDDU (0-234) H 12/08/16 19:00 Abnormal lab findings: Abnormal Labs 12/04/16 12/04/16 12/04/16 01:19 01:36 02:21 WBC RBC Hgb Hct MCV MCHC RDW Plt Count Lymph % (Auto) Colbert % (Auto) Colbert # Baso # Seg Neutrophils % Seg Neuts % (Manual) Lymphocytes % (Manual) Monocytes % (Manual) Nucleated RBC % Seg Neutrophils # Seg Neutrophils # Man Lymphocytes # (Manual) Monocytes # (Manual) Percent Retic Haptoglobin PT INR Fibrinogen D-Dimer POC ABG pH 6.759 L POC ABG pCO2 POC ABG pO2 437 H Sodium Potassium Chloride Carbon Dioxide BUN Creatinine Glucose POC Glucose > 500 H Lactic Acid Calcium Phosphorus 15.70 H Magnesium 4.30 H Iron TIBC Transferrin Total Bilirubin Direct Bilirubin AST ALT Alkaline Phosphatase Lactate Dehydrogenase CK-MB (CK-2) Troponin T C-Reactive Protein Total Protein Albumin Triglycerides Cholesterol HDL Cholesterol Vitamin B12 Urine Creatinine Urine Total Protein Heparin-induced Plt Ab Hep Bs Antibody, Quant Crossmatch 12/04/16 12/04/16 12/04/16 03:55 04:00 05:11 WBC RBC Hgb Hct MCV MCHC RDW Plt Count Lymph % (Auto) Colbert % (Auto) Colbert # Baso # Seg Neutrophils % Seg Neuts % (Manual) Lymphocytes % (Manual) Monocytes % (Manual) Nucleated RBC % Seg Neutrophils # Seg Neutrophils # Man Lymphocytes # (Manual) Monocytes # (Manual) Percent Retic Haptoglobin PT INR Fibrinogen D-Dimer POC ABG pH POC ABG pCO2 POC ABG pO2 Sodium Potassium Chloride 91.4 L Carbon Dioxide 8 L* BUN 55 H Creatinine 2.8 H Glucose 1610 H* POC Glucose > 500 H > 500 H Lactic Acid Calcium Phosphorus Magnesium Iron TIBC Transferrin Total Bilirubin Direct Bilirubin AST ALT Alkaline Phosphatase Lactate Dehydrogenase CK-MB (CK-2) Troponin T C-Reactive Protein Total Protein Albumin Triglycerides Cholesterol HDL Cholesterol Vitamin B12 Urine Creatinine Urine Total Protein Heparin-induced Plt Ab Hep Bs Antibody, Quant Crossmatch 12/04/16 12/04/16 12/04/16 05:40 05:54 06:58 WBC RBC Hgb Hct MCV MCHC RDW Plt Count Lymph % (Auto) Colbert % (Auto) Colbert # Baso # Seg Neutrophils % Seg Neuts % (Manual) Lymphocytes % (Manual) Monocytes % (Manual) Nucleated RBC % Seg Neutrophils # Seg Neutrophils # Man Lymphocytes # (Manual) Monocytes # (Manual) Percent Retic Haptoglobin PT INR Fibrinogen D-Dimer POC ABG pH 7.154 L POC ABG pCO2 27.5 L POC ABG pO2 111 H Sodium Potassium Chloride Carbon Dioxide BUN Creatinine Glucose POC Glucose > 500 H > 500 H Lactic Acid Calcium Phosphorus Magnesium Iron TIBC Transferrin Total Bilirubin Direct Bilirubin AST ALT Alkaline Phosphatase Lactate Dehydrogenase CK-MB (CK-2) Troponin T C-Reactive Protein Total Protein Albumin Triglycerides Cholesterol HDL Cholesterol Vitamin B12 Urine Creatinine Urine Total Protein Heparin-induced Plt Ab Hep Bs Antibody, Quant Crossmatch 12/04/16 12/04/16 12/04/16 07:49 07:55 07:55 WBC RBC Hgb Hct MCV MCHC RDW Plt Count Lymph % (Auto) Colbert % (Auto) Colbert # Baso # Seg Neutrophils % Seg Neuts % (Manual) Lymphocytes % (Manual) Monocytes % (Manual) Nucleated RBC % Seg Neutrophils # Seg Neutrophils # Man Lymphocytes # (Manual) Monocytes # (Manual) Percent Retic Haptoglobin PT INR Fibrinogen D-Dimer POC ABG pH POC ABG pCO2 POC ABG pO2 Sodium Potassium 3.3 L Chloride Carbon Dioxide 9 L* BUN 53 H Creatinine 2.9 H Glucose 1229 H* POC Glucose > 500 H Lactic Acid Calcium Phosphorus Magnesium Iron TIBC Transferrin Total Bilirubin Direct Bilirubin AST ALT Alkaline Phosphatase Lactate Dehydrogenase CK-MB (CK-2) Troponin T 0.111 H* D C-Reactive Protein Total Protein Albumin Triglycerides 570 H Cholesterol 221 H HDL Cholesterol 37 L Vitamin B12 Urine Creatinine Urine Total Protein Heparin-induced Plt Ab Hep Bs Antibody, Quant Crossmatch 12/04/16 12/04/16 12/04/16 07:55 09:55 09:55 WBC RBC 2.90 L Hgb 8.5 L Hct 30.2 L D MCV 105 H D MCHC 28 L RDW 19.2 H Plt Count Lymph % (Auto) Colbert % (Auto) Colbert # Baso # Seg Neutrophils % Seg Neuts % (Manual) Lymphocytes % (Manual) 11.0 L Monocytes % (Manual) Nucleated RBC % Seg Neutrophils # Seg Neutrophils # Man Lymphocytes # (Manual) 0.6 L Monocytes # (Manual) Percent Retic Haptoglobin PT INR Fibrinogen D-Dimer POC ABG pH POC ABG pCO2 POC ABG pO2 Sodium Potassium 3.1 L Chloride Carbon Dioxide 7 L* BUN 51 H Creatinine 3.2 H Glucose 969 H* POC Glucose Lactic Acid Calcium 10.4 H D Phosphorus Magnesium Iron TIBC Transferrin Total Bilirubin Direct Bilirubin AST ALT Alkaline Phosphatase Lactate Dehydrogenase CK-MB (CK-2) 4.6 H Troponin T 0.140 H* D C-Reactive Protein Total Protein Albumin Triglycerides Cholesterol HDL Cholesterol Vitamin B12 Urine Creatinine Urine Total Protein Heparin-induced Plt Ab Hep Bs Antibody, Quant Crossmatch 12/04/16 12/04/16 12/04/16 09:55 10:37 11:25 WBC RBC Hgb Hct MCV MCHC RDW Plt Count Lymph % (Auto) Colbert % (Auto) Colbert # Baso # Seg Neutrophils % Seg Neuts % (Manual) Lymphocytes % (Manual) Monocytes % (Manual) Nucleated RBC % Seg Neutrophils # Seg Neutrophils # Man Lymphocytes # (Manual) Monocytes # (Manual) Percent Retic Haptoglobin PT INR Fibrinogen D-Dimer POC ABG pH 7.215 L POC ABG pCO2 18.8 L POC ABG pO2 193 H Sodium Potassium Chloride Carbon Dioxide BUN Creatinine Glucose POC Glucose Lactic Acid Calcium Phosphorus Magnesium 3.70 H Iron TIBC Transferrin Total Bilirubin Direct Bilirubin AST ALT Alkaline Phosphatase Lactate Dehydrogenase CK-MB (CK-2) Troponin T C-Reactive Protein Total Protein Albumin Triglycerides Cholesterol HDL Cholesterol Vitamin B12 Urine Creatinine 29.5 H Urine Total Protein 33 H Heparin-induced Plt Ab Hep Bs Antibody, Quant Crossmatch 12/04/16 12/04/16 12/04/16 12:00 12:48 13:00 WBC RBC Hgb Hct MCV MCHC RDW Plt Count Lymph % (Auto) Colbert % (Auto) Colbert # Baso # Seg Neutrophils % Seg Neuts % (Manual) Lymphocytes % (Manual) Monocytes % (Manual) Nucleated RBC % Seg Neutrophils # Seg Neutrophils # Man Lymphocytes # (Manual) Monocytes # (Manual) Percent Retic Haptoglobin PT INR Fibrinogen D-Dimer POC ABG pH POC ABG pCO2 POC ABG pO2 Sodium 149 H 150 H Potassium 3.2 L 3.2 L Chloride 109.1 H Carbon Dioxide 8 L* 8 L* BUN 52 H 49 H Creatinine 3.4 H 3.1 H Glucose 723 H* 574 H* POC Glucose Lactic Acid 18.80 H* Calcium Phosphorus Magnesium Iron TIBC Transferrin Total Bilirubin Direct Bilirubin AST ALT Alkaline Phosphatase Lactate Dehydrogenase CK-MB (CK-2) Troponin T C-Reactive Protein Total Protein Albumin Triglycerides Cholesterol HDL Cholesterol Vitamin B12 Urine Creatinine Urine Total Protein Heparin-induced Plt Ab Hep Bs Antibody, Quant Crossmatch 12/04/16 12/04/16 12/04/16 13:01 14:41 16:06 WBC RBC Hgb Hct MCV MCHC RDW Plt Count Lymph % (Auto) Colbert % (Auto) Colbert # Baso # Seg Neutrophils % Seg Neuts % (Manual) Lymphocytes % (Manual) Monocytes % (Manual) Nucleated RBC % Seg Neutrophils # Seg Neutrophils # Man Lymphocytes # (Manual) Monocytes # (Manual) Percent Retic Haptoglobin PT INR Fibrinogen D-Dimer POC ABG pH POC ABG pCO2 POC ABG pO2 Sodium 151 H Potassium 3.2 L Chloride 108.1 H Carbon Dioxide 10 L BUN 49 H Creatinine 3.0 H Glucose 383 H POC Glucose 292 H Lactic Acid Calcium Phosphorus Magnesium Iron TIBC Transferrin Total Bilirubin Direct Bilirubin AST ALT Alkaline Phosphatase Lactate Dehydrogenase CK-MB (CK-2) Troponin T C-Reactive Protein 3.50 H Total Protein Albumin Triglycerides Cholesterol HDL Cholesterol Vitamin B12 Urine Creatinine Urine Total Protein Heparin-induced Plt Ab Hep Bs Antibody, Quant Crossmatch 12/04/16 12/04/16 12/04/16 17:15 17:25 18:07 WBC RBC Hgb Hct MCV MCHC RDW Plt Count Lymph % (Auto) Colbert % (Auto) Colbert # Baso # Seg Neutrophils % Seg Neuts % (Manual) Lymphocytes % (Manual) Monocytes % (Manual) Nucleated RBC % Seg Neutrophils # Seg Neutrophils # Man Lymphocytes # (Manual) Monocytes # (Manual) Percent Retic Haptoglobin PT INR Fibrinogen D-Dimer POC ABG pH 7.255 L POC ABG pCO2 16.9 L POC ABG pO2 169 H Sodium Potassium Chloride Carbon Dioxide BUN Creatinine Glucose POC Glucose 246 H Lactic Acid 18.50 H* Calcium Phosphorus Magnesium Iron TIBC Transferrin Total Bilirubin Direct Bilirubin AST ALT Alkaline Phosphatase Lactate Dehydrogenase CK-MB (CK-2) Troponin T C-Reactive Protein Total Protein Albumin Triglycerides Cholesterol HDL Cholesterol Vitamin B12 Urine Creatinine Urine Total Protein Heparin-induced Plt Ab Hep Bs Antibody, Quant Crossmatch 12/04/16 12/04/16 12/04/16 19:34 20:31 21:15 WBC RBC Hgb Hct MCV MCHC RDW Plt Count Lymph % (Auto) Colbert % (Auto) Colbert # Baso # Seg Neutrophils % Seg Neuts % (Manual) Lymphocytes % (Manual) Monocytes % (Manual) Nucleated RBC % Seg Neutrophils # Seg Neutrophils # Man Lymphocytes # (Manual) Monocytes # (Manual) Percent Retic Haptoglobin PT INR Fibrinogen D-Dimer POC ABG pH POC ABG pCO2 POC ABG pO2 Sodium Potassium Chloride Carbon Dioxide BUN Creatinine Glucose POC Glucose 189 H 126 H 139 H Lactic Acid Calcium Phosphorus Magnesium Iron TIBC Transferrin Total Bilirubin Direct Bilirubin AST ALT Alkaline Phosphatase Lactate Dehydrogenase CK-MB (CK-2) Troponin T C-Reactive Protein Total Protein Albumin Triglycerides Cholesterol HDL Cholesterol Vitamin B12 Urine Creatinine Urine Total Protein Heparin-induced Plt Ab Hep Bs Antibody, Quant Crossmatch 12/04/16 12/04/1617 21:25 22:37 23:35 WBC RBC Hgb Hct MCV MCHC RDW Plt Count Lymph % (Auto) Colbert % (Auto) Colbert # Baso # Seg Neutrophils % Seg Neuts % (Manual) Lymphocytes % (Manual) Monocytes % (Manual) Nucleated RBC % Seg Neutrophils # Seg Neutrophils # Man Lymphocytes # (Manual) Monocytes # (Manual) Percent Retic Haptoglobin PT INR Fibrinogen D-Dimer POC ABG pH 7.294 L POC ABG pCO2 16.7 L POC ABG pO2 169 H Sodium Potassium Chloride Carbon Dioxide BUN Creatinine Glucose POC Glucose 131 H 106 H Lactic Acid Calcium Phosphorus Magnesium Iron TIBC Transferrin Total Bilirubin Direct Bilirubin AST ALT Alkaline Phosphatase Lactate Dehydrogenase CK-MB (CK-2) Troponin T C-Reactive Protein Total Protein Albumin Triglycerides Cholesterol HDL Cholesterol Vitamin B12 Urine Creatinine Urine Total Protein Heparin-induced Plt Ab Hep Bs Antibody, Quant Crossmatch 12/05/16 12/05/16 12/05/16 02:40 02:50 02:50 WBC RBC Hgb Hct MCV MCHC RDW Plt Count Lymph % (Auto) Colbert % (Auto) Colbert # Baso # Seg Neutrophils % Seg Neuts % (Manual) Lymphocytes % (Manual) Monocytes % (Manual) Nucleated RBC % Seg Neutrophils # Seg Neutrophils # Man Lymphocytes # (Manual) Monocytes # (Manual) Percent Retic Haptoglobin PT INR Fibrinogen D-Dimer POC ABG pH POC ABG pCO2 POC ABG pO2 Sodium 151 H Potassium Chloride 113.8 H Carbon Dioxide 12 L BUN 46 H Creatinine 3.2 H Glucose 165 H POC Glucose 109 H Lactic Acid 9.80 H* Calcium 8.3 L Phosphorus Magnesium Iron TIBC Transferrin Total Bilirubin Direct Bilirubin AST ALT Alkaline Phosphatase Lactate Dehydrogenase CK-MB (CK-2) Troponin T C-Reactive Protein Total Protein Albumin Triglycerides Cholesterol HDL Cholesterol Vitamin B12 Urine Creatinine Urine Total Protein Heparin-induced Plt Ab Hep Bs Antibody, Quant Crossmatch 12/05/16 12/05/16 12/05/16 04:01 04:30 04:30 WBC 19.1 H RBC 2.91 L Hgb 8.0 L Hct 25.4 L MCV MCHC RDW 17.8 H Plt Count Lymph % (Auto) Colbert % (Auto) Colbert # Baso # Seg Neutrophils % Seg Neuts % (Manual) 17.0 L Lymphocytes % (Manual) 7.0 L Monocytes % (Manual) Nucleated RBC % 3.0 H Seg Neutrophils # Seg Neutrophils # Man Lymphocytes # (Manual) Monocytes # (Manual) Percent Retic Haptoglobin PT INR Fibrinogen D-Dimer POC ABG pH POC ABG pCO2 POC ABG pO2 Sodium 152 H Potassium Chloride 113.5 H Carbon Dioxide 12 L BUN 47 H Creatinine 3.2 H Glucose 133 H POC Glucose 179 H Lactic Acid Calcium 8.3 L Phosphorus 1.00 L D Magnesium Iron TIBC Transferrin Total Bilirubin Direct Bilirubin AST ALT Alkaline Phosphatase Lactate Dehydrogenase CK-MB (CK-2) Troponin T C-Reactive Protein Total Protein Albumin Triglycerides Cholesterol HDL Cholesterol Vitamin B12 Urine Creatinine Urine Total Protein Heparin-induced Plt Ab Hep Bs Antibody, Quant Crossmatch 12/05/16 12/05/16 12/05/16 05:32 08:01 08:48 WBC RBC Hgb Hct MCV MCHC RDW Plt Count Lymph % (Auto) Colbert % (Auto) Colbert # Baso # Seg Neutrophils % Seg Neuts % (Manual) Lymphocytes % (Manual) Monocytes % (Manual) Nucleated RBC % Seg Neutrophils # Seg Neutrophils # Man Lymphocytes # (Manual) Monocytes # (Manual) Percent Retic Haptoglobin PT INR Fibrinogen D-Dimer POC ABG pH POC ABG pCO2 17.6 L POC ABG pO2 62 L Sodium Potassium Chloride Carbon Dioxide BUN Creatinine Glucose POC Glucose 126 H 130 H Lactic Acid Calcium Phosphorus Magnesium Iron TIBC Transferrin Total Bilirubin Direct Bilirubin AST ALT Alkaline Phosphatase Lactate Dehydrogenase CK-MB (CK-2) Troponin T C-Reactive Protein Total Protein Albumin Triglycerides Cholesterol HDL Cholesterol Vitamin B12 Urine Creatinine Urine Total Protein Heparin-induced Plt Ab Hep Bs Antibody, Quant Crossmatch 12/05/16 12/05/16 12/05/16 08:54 12:01 15:15 WBC RBC Hgb Hct MCV MCHC RDW Plt Count Lymph % (Auto) Colbert % (Auto) Colbert # Baso # Seg Neutrophils % Seg Neuts % (Manual) Lymphocytes % (Manual) Monocytes % (Manual) Nucleated RBC % Seg Neutrophils # Seg Neutrophils # Man Lymphocytes # (Manual) Monocytes # (Manual) Percent Retic Haptoglobin PT INR Fibrinogen D-Dimer POC ABG pH POC ABG pCO2 POC ABG pO2 Sodium Potassium Chloride Carbon Dioxide BUN Creatinine Glucose POC Glucose 157 H 117 H 166 H Lactic Acid Calcium Phosphorus Magnesium Iron TIBC Transferrin Total Bilirubin Direct Bilirubin AST ALT Alkaline Phosphatase Lactate Dehydrogenase CK-MB (CK-2) Troponin T C-Reactive Protein Total Protein Albumin Triglycerides Cholesterol HDL Cholesterol Vitamin B12 Urine Creatinine Urine Total Protein Heparin-induced Plt Ab Hep Bs Antibody, Quant Crossmatch 12/05/16 12/05/16 12/05/16 16:10 16:55 17:08 WBC RBC Hgb Hct MCV MCHC RDW Plt Count Lymph % (Auto) Colbert % (Auto) Colbert # Baso # Seg Neutrophils % Seg Neuts % (Manual) Lymphocytes % (Manual) Monocytes % (Manual) Nucleated RBC % Seg Neutrophils # Seg Neutrophils # Man Lymphocytes # (Manual) Monocytes # (Manual) Percent Retic Haptoglobin PT INR Fibrinogen D-Dimer POC ABG pH POC ABG pCO2 POC ABG pO2 Sodium Potassium Chloride Carbon Dioxide BUN Creatinine Glucose POC Glucose 178 H 169 H Lactic Acid Calcium Phosphorus 5.00 H D Magnesium Iron TIBC Transferrin Total Bilirubin Direct Bilirubin AST ALT Alkaline Phosphatase Lactate Dehydrogenase CK-MB (CK-2) Troponin T C-Reactive Protein Total Protein Albumin Triglycerides Cholesterol HDL Cholesterol Vitamin B12 Urine Creatinine Urine Total Protein Heparin-induced Plt Ab Hep Bs Antibody, Quant Crossmatch 12/05/16 12/05/16 12/05/16 18:08 18:51 20:04 WBC RBC Hgb Hct MCV MCHC RDW Plt Count Lymph % (Auto) Colbert % (Auto) Colbert # Baso # Seg Neutrophils % Seg Neuts % (Manual) Lymphocytes % (Manual) Monocytes % (Manual) Nucleated RBC % Seg Neutrophils # Seg Neutrophils # Man Lymphocytes # (Manual) Monocytes # (Manual) Percent Retic Haptoglobin PT INR Fibrinogen D-Dimer POC ABG pH POC ABG pCO2 POC ABG pO2 Sodium Potassium Chloride Carbon Dioxide BUN Creatinine Glucose POC Glucose 147 H 113 H 64 L Lactic Acid Calcium Phosphorus Magnesium Iron TIBC Transferrin Total Bilirubin Direct Bilirubin AST ALT Alkaline Phosphatase Lactate Dehydrogenase CK-MB (CK-2) Troponin T C-Reactive Protein Total Protein Albumin Triglycerides Cholesterol HDL Cholesterol Vitamin B12 Urine Creatinine Urine Total Protein Heparin-induced Plt Ab Hep Bs Antibody, Quant Crossmatch 12/05/16 12/05/16 12/05/16 21:34 22:08 23:19 WBC RBC Hgb Hct MCV MCHC RDW Plt Count Lymph % (Auto) Colbert % (Auto) Colbert # Baso # Seg Neutrophils % Seg Neuts % (Manual) Lymphocytes % (Manual) Monocytes % (Manual) Nucleated RBC % Seg Neutrophils # Seg Neutrophils # Man Lymphocytes # (Manual) Monocytes # (Manual) Percent Retic Haptoglobin PT INR Fibrinogen D-Dimer POC ABG pH 7.303 L POC ABG pCO2 18.3 L POC ABG pO2 73 L Sodium Potassium Chloride Carbon Dioxide BUN Creatinine Glucose POC Glucose 141 H 200 H Lactic Acid Calcium Phosphorus Magnesium Iron TIBC Transferrin Total Bilirubin Direct Bilirubin AST ALT Alkaline Phosphatase Lactate Dehydrogenase CK-MB (CK-2) Troponin T C-Reactive Protein Total Protein Albumin Triglycerides Cholesterol HDL Cholesterol Vitamin B12 Urine Creatinine Urine Total Protein Heparin-induced Plt Ab Hep Bs Antibody, Quant Crossmatch 12/06/16 12/06/16 12/06/16 00:01 01:09 02:00 WBC RBC Hgb Hct MCV MCHC RDW Plt Count Lymph % (Auto) Colbert % (Auto) Colbert # Baso # Seg Neutrophils % Seg Neuts % (Manual) Lymphocytes % (Manual) Monocytes % (Manual) Nucleated RBC % Seg Neutrophils # Seg Neutrophils # Man Lymphocytes # (Manual) Monocytes # (Manual) Percent Retic Haptoglobin PT INR Fibrinogen D-Dimer POC ABG pH POC ABG pCO2 POC ABG pO2 Sodium Potassium Chloride Carbon Dioxide BUN Creatinine Glucose POC Glucose 211 H 116 H 57 L Lactic Acid Calcium Phosphorus Magnesium Iron TIBC Transferrin Total Bilirubin Direct Bilirubin AST ALT Alkaline Phosphatase Lactate Dehydrogenase CK-MB (CK-2) Troponin T C-Reactive Protein Total Protein Albumin Triglycerides Cholesterol HDL Cholesterol Vitamin B12 Urine Creatinine Urine Total Protein Heparin-induced Plt Ab Hep Bs Antibody, Quant Crossmatch 12/06/16 12/06/16 12/06/16 04:14 04:50 04:50 WBC RBC 2.68 L Hgb 7.6 L Hct 23.2 L MCV MCHC RDW 18.9 H Plt Count Lymph % (Auto) Colbert % (Auto) Colbert # Baso # Seg Neutrophils % Seg Neuts % (Manual) 32.0 L Lymphocytes % (Manual) Monocytes % (Manual) Nucleated RBC % 3.0 H Seg Neutrophils # Seg Neutrophils # Man Lymphocytes # (Manual) 0.9 L Monocytes # (Manual) Percent Retic Haptoglobin PT INR Fibrinogen D-Dimer POC ABG pH POC ABG pCO2 POC ABG pO2 Sodium Potassium 5.8 H D Chloride 111.5 H Carbon Dioxide 11 L BUN 52 H Creatinine 3.8 H Glucose 186 H POC Glucose 133 H Lactic Acid Calcium 6.5 L D Phosphorus 5.80 H Magnesium Iron TIBC Transferrin Total Bilirubin Direct Bilirubin AST ALT Alkaline Phosphatase Lactate Dehydrogenase CK-MB (CK-2) Troponin T C-Reactive Protein Total Protein Albumin Triglycerides Cholesterol HDL Cholesterol Vitamin B12 Urine Creatinine Urine Total Protein Heparin-induced Plt Ab Hep Bs Antibody, Quant Crossmatch 12/06/16 12/06/16 12/06/16 04:50 05:04 05:07 WBC RBC Hgb Hct MCV MCHC RDW Plt Count Lymph % (Auto) Colbert % (Auto) Colbert # Baso # Seg Neutrophils % Seg Neuts % (Manual) Lymphocytes % (Manual) Monocytes % (Manual) Nucleated RBC % Seg Neutrophils # Seg Neutrophils # Man Lymphocytes # (Manual) Monocytes # (Manual) Percent Retic Haptoglobin PT INR Fibrinogen D-Dimer POC ABG pH POC ABG pCO2 13.0 L POC ABG pO2 111 H Sodium Potassium Chloride Carbon Dioxide BUN Creatinine Glucose POC Glucose 127 H Lactic Acid 6.50 H* Calcium Phosphorus Magnesium Iron TIBC Transferrin Total Bilirubin Direct Bilirubin AST ALT Alkaline Phosphatase Lactate Dehydrogenase CK-MB (CK-2) Troponin T C-Reactive Protein Total Protein Albumin Triglycerides Cholesterol HDL Cholesterol Vitamin B12 Urine Creatinine Urine Total Protein Heparin-induced Plt Ab Hep Bs Antibody, Quant Crossmatch 12/06/16 12/06/16 12/06/16 06:10 06:54 07:46 WBC RBC Hgb Hct MCV MCHC RDW Plt Count Lymph % (Auto) Colbert % (Auto) Colbert # Baso # Seg Neutrophils % Seg Neuts % (Manual) Lymphocytes % (Manual) Monocytes % (Manual) Nucleated RBC % Seg Neutrophils # Seg Neutrophils # Man Lymphocytes # (Manual) Monocytes # (Manual) Percent Retic Haptoglobin PT INR Fibrinogen D-Dimer POC ABG pH POC ABG pCO2 POC ABG pO2 Sodium Potassium Chloride Carbon Dioxide BUN Creatinine Glucose POC Glucose 219 H 237 H 158 H Lactic Acid Calcium Phosphorus Magnesium Iron TIBC Transferrin Total Bilirubin Direct Bilirubin AST ALT Alkaline Phosphatase Lactate Dehydrogenase CK-MB (CK-2) Troponin T C-Reactive Protein Total Protein Albumin Triglycerides Cholesterol HDL Cholesterol Vitamin B12 Urine Creatinine Urine Total Protein Heparin-induced Plt Ab Hep Bs Antibody, Quant Crossmatch 12/06/16 12/06/16 12/06/16 08:55 10:27 11:58 WBC RBC Hgb Hct MCV MCHC RDW Plt Count Lymph % (Auto) Colbert % (Auto) Colbert # Baso # Seg Neutrophils % Seg Neuts % (Manual) Lymphocytes % (Manual) Monocytes % (Manual) Nucleated RBC % Seg Neutrophils # Seg Neutrophils # Man Lymphocytes # (Manual) Monocytes # (Manual) Percent Retic Haptoglobin PT INR Fibrinogen D-Dimer POC ABG pH POC ABG pCO2 POC ABG pO2 Sodium Potassium Chloride Carbon Dioxide BUN Creatinine Glucose POC Glucose 40 L 128 H 144 H Lactic Acid Calcium Phosphorus Magnesium Iron TIBC Transferrin Total Bilirubin Direct Bilirubin AST ALT Alkaline Phosphatase Lactate Dehydrogenase CK-MB (CK-2) Troponin T C-Reactive Protein Total Protein Albumin Triglycerides Cholesterol HDL Cholesterol Vitamin B12 Urine Creatinine Urine Total Protein Heparin-induced Plt Ab Hep Bs Antibody, Quant Crossmatch 12/06/16 12/06/16 12/06/16 18:14 19:00 19:06 WBC RBC Hgb Hct MCV MCHC RDW Plt Count Lymph % (Auto) Colbert % (Auto) Colbert # Baso # Seg Neutrophils % Seg Neuts % (Manual) Lymphocytes % (Manual) Monocytes % (Manual) Nucleated RBC % Seg Neutrophils # Seg Neutrophils # Man Lymphocytes # (Manual) Monocytes # (Manual) Percent Retic Haptoglobin PT INR Fibrinogen D-Dimer POC ABG pH POC ABG pCO2 POC ABG pO2 Sodium 149 H Potassium 5.6 H Chloride 115.9 H Carbon Dioxide 13 L BUN 56 H Creatinine 4.3 H Glucose 124 H POC Glucose 55 L 148 H Lactic Acid Calcium 6.0 L Phosphorus Magnesium Iron TIBC Transferrin Total Bilirubin Direct Bilirubin AST ALT Alkaline Phosphatase Lactate Dehydrogenase CK-MB (CK-2) Troponin T C-Reactive Protein Total Protein Albumin Triglycerides Cholesterol HDL Cholesterol Vitamin B12 Urine Creatinine Urine Total Protein Heparin-induced Plt Ab Hep Bs Antibody, Quant Crossmatch 12/06/16 12/06/16 12/07/16 21:24 21:51 02:32 WBC RBC Hgb Hct MCV MCHC RDW Plt Count Lymph % (Auto) Colbert % (Auto) Colbert # Baso # Seg Neutrophils % Seg Neuts % (Manual) Lymphocytes % (Manual) Monocytes % (Manual) Nucleated RBC % Seg Neutrophils # Seg Neutrophils # Man Lymphocytes # (Manual) Monocytes # (Manual) Percent Retic Haptoglobin PT INR Fibrinogen D-Dimer POC ABG pH POC ABG pCO2 17.0 L POC ABG pO2 142 H Sodium Potassium Chloride Carbon Dioxide BUN Creatinine Glucose POC Glucose 107 H 175 H Lactic Acid Calcium Phosphorus Magnesium Iron TIBC Transferrin Total Bilirubin Direct Bilirubin AST ALT Alkaline Phosphatase Lactate Dehydrogenase CK-MB (CK-2) Troponin T C-Reactive Protein Total Protein Albumin Triglycerides Cholesterol HDL Cholesterol Vitamin B12 Urine Creatinine Urine Total Protein Heparin-induced Plt Ab Hep Bs Antibody, Quant Crossmatch 12/07/16 12/07/16 12/07/16 05:01 05:25 06:00 WBC RBC 2.52 L Hgb 7.1 L Hct 22.1 L MCV MCHC RDW 19.3 H Plt Count 90 L Lymph % (Auto) Colbert % (Auto) Colbert # Baso # Seg Neutrophils % Seg Neuts % (Manual) 75.0 H Lymphocytes % (Manual) 11.0 L Monocytes % (Manual) Nucleated RBC % Seg Neutrophils # Seg Neutrophils # Man Lymphocytes # (Manual) 0.7 L Monocytes # (Manual) Percent Retic Haptoglobin PT INR Fibrinogen D-Dimer POC ABG pH 7.300 L POC ABG pCO2 17.1 L POC ABG pO2 140 H Sodium Potassium Chloride Carbon Dioxide BUN Creatinine Glucose POC Glucose 279 H Lactic Acid Calcium Phosphorus Magnesium Iron TIBC Transferrin Total Bilirubin Direct Bilirubin AST ALT Alkaline Phosphatase Lactate Dehydrogenase CK-MB (CK-2) Troponin T C-Reactive Protein Total Protein Albumin Triglycerides Cholesterol HDL Cholesterol Vitamin B12 Urine Creatinine Urine Total Protein Heparin-induced Plt Ab Hep Bs Antibody, Quant Crossmatch 12/07/16 12/07/16 12/07/16 06:00 06:00 07:30 WBC RBC Hgb Hct MCV MCHC RDW Plt Count Lymph % (Auto) Colbert % (Auto) Colbert # Baso # Seg Neutrophils % Seg Neuts % (Manual) Lymphocytes % (Manual) Monocytes % (Manual) Nucleated RBC % Seg Neutrophils # Seg Neutrophils # Man Lymphocytes # (Manual) Monocytes # (Manual) Percent Retic Haptoglobin PT INR Fibrinogen D-Dimer POC ABG pH POC ABG pCO2 POC ABG pO2 Sodium Potassium Chloride Carbon Dioxide BUN Creatinine Glucose POC Glucose Lactic Acid 6.90 H* Calcium Phosphorus 6.80 H Magnesium Iron TIBC Transferrin Total Bilirubin Direct Bilirubin AST ALT Alkaline Phosphatase Lactate Dehydrogenase CK-MB (CK-2) Troponin T C-Reactive Protein 39.40 H Total Protein Albumin Triglycerides Cholesterol HDL Cholesterol Vitamin B12 Urine Creatinine Urine Total Protein Heparin-induced Plt Ab Hep Bs Antibody, Quant Crossmatch 12/07/16 12/07/16 12/07/16 08:40 10:53 14:31 WBC RBC Hgb Hct MCV MCHC RDW Plt Count Lymph % (Auto) Colbert % (Auto) Colbert # Baso # Seg Neutrophils % Seg Neuts % (Manual) Lymphocytes % (Manual) Monocytes % (Manual) Nucleated RBC % Seg Neutrophils # Seg Neutrophils # Man Lymphocytes # (Manual) Monocytes # (Manual) Percent Retic Haptoglobin PT INR Fibrinogen D-Dimer POC ABG pH POC ABG pCO2 POC ABG pO2 Sodium Potassium 7.0 H* D Chloride 112.4 H Carbon Dioxide 8 L* BUN 61 H Creatinine 5.1 H Glucose 213 H POC Glucose 353 H 52 L Lactic Acid Calcium 5.8 L* Phosphorus Magnesium Iron TIBC Transferrin Total Bilirubin Direct Bilirubin AST ALT Alkaline Phosphatase Lactate Dehydrogenase CK-MB (CK-2) Troponin T C-Reactive Protein Total Protein Albumin Triglycerides Cholesterol HDL Cholesterol Vitamin B12 Urine Creatinine Urine Total Protein Heparin-induced Plt Ab Hep Bs Antibody, Quant Crossmatch 12/07/16 12/07/16 12/07/16 14:45 15:33 16:22 WBC RBC Hgb Hct MCV MCHC RDW Plt Count Lymph % (Auto) Colbert % (Auto) Colbert # Baso # Seg Neutrophils % Seg Neuts % (Manual) Lymphocytes % (Manual) Monocytes % (Manual) Nucleated RBC % Seg Neutrophils # Seg Neutrophils # Man Lymphocytes # (Manual) Monocytes # (Manual) Percent Retic Haptoglobin PT 17.5 H INR 1.44 H Fibrinogen D-Dimer POC ABG pH POC ABG pCO2 POC ABG pO2 Sodium Potassium Chloride Carbon Dioxide BUN Creatinine Glucose POC Glucose < 40 L 118 H Lactic Acid Calcium Phosphorus Magnesium Iron TIBC Transferrin Total Bilirubin Direct Bilirubin AST ALT Alkaline Phosphatase Lactate Dehydrogenase CK-MB (CK-2) Troponin T C-Reactive Protein Total Protein Albumin Triglycerides Cholesterol HDL Cholesterol Vitamin B12 Urine Creatinine Urine Total Protein Heparin-induced Plt Ab Hep Bs Antibody, Quant Crossmatch 12/07/16 12/07/16 12/07/16 21:35 21:35 21:58 WBC RBC Hgb Hct MCV MCHC RDW Plt Count Lymph % (Auto) Colbert % (Auto) Colbert # Baso # Seg Neutrophils % Seg Neuts % (Manual) Lymphocytes % (Manual) Monocytes % (Manual) Nucleated RBC % Seg Neutrophils # Seg Neutrophils # Man Lymphocytes # (Manual) Monocytes # (Manual) Percent Retic Haptoglobin PT INR Fibrinogen D-Dimer POC ABG pH POC ABG pCO2 POC ABG pO2 Sodium 150 H Potassium 3.3 L D Chloride 111.4 H Carbon Dioxide 21 L D BUN 22 H Creatinine 2.6 H Glucose 23 L* POC Glucose < 40 L Lactic Acid Calcium Phosphorus Magnesium Iron TIBC Transferrin Total Bilirubin 1.40 H Direct Bilirubin 0.9 H AST 94 H ALT 142 H Alkaline Phosphatase 249 H Lactate Dehydrogenase CK-MB (CK-2) Troponin T C-Reactive Protein Total Protein 4.6 L D Albumin 2.1 L Triglycerides Cholesterol HDL Cholesterol Vitamin B12 Urine Creatinine Urine Total Protein Heparin-induced Plt Ab Hep Bs Antibody, Quant Crossmatch 12/07/16 12/08/16 12/08/16 23:31 04:43 04:50 WBC RBC 2.35 L Hgb 6.6 L Hct 20.1 L MCV MCHC RDW 17.8 H Plt Count 48 L Lymph % (Auto) Colbert % (Auto) Colbert # Baso # Seg Neutrophils % Seg Neuts % (Manual) Lymphocytes % (Manual) Monocytes % (Manual) Nucleated RBC % Seg Neutrophils # Seg Neutrophils # Man Lymphocytes # (Manual) 0.9 L Monocytes # (Manual) Percent Retic Haptoglobin PT INR Fibrinogen D-Dimer POC ABG pH 7.586 H POC ABG pCO2 17.7 L POC ABG pO2 150 H Sodium Potassium Chloride Carbon Dioxide BUN Creatinine Glucose POC Glucose 42 L Lactic Acid Calcium Phosphorus Magnesium Iron TIBC Transferrin Total Bilirubin Direct Bilirubin AST ALT Alkaline Phosphatase Lactate Dehydrogenase CK-MB (CK-2) Troponin T C-Reactive Protein Total Protein Albumin Triglycerides Cholesterol HDL Cholesterol Vitamin B12 Urine Creatinine Urine Total Protein Heparin-induced Plt Ab Hep Bs Antibody, Quant Crossmatch 12/08/16 12/08/16 12/08/16 04:50 04:59 06:54 WBC RBC Hgb Hct MCV MCHC RDW Plt Count Lymph % (Auto) Colbert % (Auto) Colbert # Baso # Seg Neutrophils % Seg Neuts % (Manual) Lymphocytes % (Manual) Monocytes % (Manual) Nucleated RBC % Seg Neutrophils # Seg Neutrophils # Man Lymphocytes # (Manual) Monocytes # (Manual) Percent Retic Haptoglobin PT INR Fibrinogen D-Dimer POC ABG pH POC ABG pCO2 POC ABG pO2 Sodium 149 H Potassium 3.2 L Chloride 111.8 H Carbon Dioxide 17 L BUN 26 H Creatinine 3.4 H Glucose 163 H POC Glucose 204 H 203 H Lactic Acid Calcium 7.7 L Phosphorus 2.40 L D Magnesium Iron TIBC Transferrin Total Bilirubin Direct Bilirubin AST ALT Alkaline Phosphatase Lactate Dehydrogenase CK-MB (CK-2) Troponin T C-Reactive Protein Total Protein Albumin Triglycerides Cholesterol HDL Cholesterol Vitamin B12 Urine Creatinine Urine Total Protein Heparin-induced Plt Ab Hep Bs Antibody, Quant Crossmatch 12/08/16 12/08/16 12/08/16 08:04 08:46 08:46 WBC RBC Hgb Hct MCV MCHC RDW Plt Count Lymph % (Auto) Colbert % (Auto) Colbert # Baso # Seg Neutrophils % Seg Neuts % (Manual) Lymphocytes % (Manual) Monocytes % (Manual) Nucleated RBC % Seg Neutrophils # Seg Neutrophils # Man Lymphocytes # (Manual) Monocytes # (Manual) Percent Retic Haptoglobin PT INR Fibrinogen D-Dimer POC ABG pH POC ABG pCO2 POC ABG pO2 Sodium 147 H Potassium 2.9 L* Chloride 110.6 H Carbon Dioxide 17 L BUN 28 H Creatinine 3.6 H Glucose 127 H POC Glucose 205 H Lactic Acid Calcium 7.3 L Phosphorus Magnesium Iron TIBC Transferrin Total Bilirubin Direct Bilirubin AST ALT Alkaline Phosphatase Lactate Dehydrogenase CK-MB (CK-2) Troponin T C-Reactive Protein Total Protein Albumin Triglycerides Cholesterol HDL Cholesterol Vitamin B12 Urine Creatinine Urine Total Protein Heparin-induced Plt Ab Hep Bs Antibody, Quant Crossmatch See Detail 12/08/16 12/08/16 12/08/16 12:36 19:00 19:00 WBC RBC Hgb Hct MCV MCHC RDW Plt Count Lymph % (Auto) Colbert % (Auto) Colbert # Baso # Seg Neutrophils % Seg Neuts % (Manual) Lymphocytes % (Manual) Monocytes % (Manual) Nucleated RBC % Seg Neutrophils # Seg Neutrophils # Man Lymphocytes # (Manual) Monocytes # (Manual) Percent Retic Haptoglobin PT 15.3 H INR 1.22 H Fibrinogen 563 H D-Dimer 5507.36 H POC ABG pH POC ABG pCO2 POC ABG pO2 Sodium Potassium Chloride Carbon Dioxide 21 L BUN Creatinine 1.7 H D Glucose 155 H POC Glucose 181 H Lactic Acid Calcium Phosphorus Magnesium Iron TIBC Transferrin Total Bilirubin Direct Bilirubin AST ALT Alkaline Phosphatase Lactate Dehydrogenase CK-MB (CK-2) Troponin T C-Reactive Protein Total Protein Albumin Triglycerides Cholesterol HDL Cholesterol Vitamin B12 Urine Creatinine Urine Total Protein Heparin-induced Plt Ab Hep Bs Antibody, Quant Crossmatch 12/08/16 12/08/16 12/08/16 19:00 19:00 21:30 WBC RBC 2.76 L Hgb 7.8 L Hct 23.7 L MCV MCHC RDW 17.0 H Plt Count 38 L Lymph % (Auto) Colbert % (Auto) Colbert # Baso # Seg Neutrophils % Seg Neuts % (Manual) Lymphocytes % (Manual) Monocytes % (Manual) Nucleated RBC % Seg Neutrophils # Seg Neutrophils # Man Lymphocytes # (Manual) Monocytes # (Manual) Percent Retic Haptoglobin 271 H PT INR Fibrinogen D-Dimer POC ABG pH POC ABG pCO2 POC ABG pO2 Sodium Potassium Chloride Carbon Dioxide BUN Creatinine Glucose POC Glucose Lactic Acid Calcium Phosphorus Magnesium Iron TIBC Transferrin Total Bilirubin Direct Bilirubin AST ALT Alkaline Phosphatase Lactate Dehydrogenase 382 H CK-MB (CK-2) Troponin T C-Reactive Protein Total Protein Albumin Triglycerides Cholesterol HDL Cholesterol Vitamin B12 Urine Creatinine Urine Total Protein Heparin-induced Plt Ab Hep Bs Antibody, Quant Crossmatch 12/08/16 12/08/16 12/09/16 23:32 23:44 05:22 WBC RBC Hgb Hct MCV MCHC RDW Plt Count Lymph % (Auto) Colbert % (Auto) Colbert # Baso # Seg Neutrophils % Seg Neuts % (Manual) Lymphocytes % (Manual) Monocytes % (Manual) Nucleated RBC % Seg Neutrophils # Seg Neutrophils # Man Lymphocytes # (Manual) Monocytes # (Manual) Percent Retic Haptoglobin PT INR Fibrinogen D-Dimer POC ABG pH 7.498 H POC ABG pCO2 25.2 L POC ABG pO2 137 H Sodium Potassium Chloride Carbon Dioxide BUN Creatinine Glucose POC Glucose 311 H 113 H Lactic Acid Calcium Phosphorus Magnesium Iron TIBC Transferrin Total Bilirubin Direct Bilirubin AST ALT Alkaline Phosphatase Lactate Dehydrogenase CK-MB (CK-2) Troponin T C-Reactive Protein Total Protein Albumin Triglycerides Cholesterol HDL Cholesterol Vitamin B12 Urine Creatinine Urine Total Protein Heparin-induced Plt Ab Hep Bs Antibody, Quant Crossmatch 12/09/16 12/09/16 12/09/16 06:00 11:29 11:59 WBC RBC Hgb Hct MCV MCHC RDW Plt Count Lymph % (Auto) Colbert % (Auto) Colbert # Baso # Seg Neutrophils % Seg Neuts % (Manual) Lymphocytes % (Manual) Monocytes % (Manual) Nucleated RBC % Seg Neutrophils # Seg Neutrophils # Man Lymphocytes # (Manual) Monocytes # (Manual) Percent Retic 0.23 L Haptoglobin PT INR Fibrinogen D-Dimer POC ABG pH POC ABG pCO2 POC ABG pO2 Sodium Potassium Chloride 110.2 H Carbon Dioxide 18 L BUN 19 H Creatinine 2.5 H Glucose 105 H POC Glucose 254 H Lactic Acid Calcium Phosphorus 2.00 L Magnesium Iron TIBC Transferrin Total Bilirubin Direct Bilirubin AST ALT Alkaline Phosphatase Lactate Dehydrogenase CK-MB (CK-2) Troponin T C-Reactive Protein Total Protein Albumin Triglycerides Cholesterol HDL Cholesterol Vitamin B12 Urine Creatinine Urine Total Protein Heparin-induced Plt Ab Hep Bs Antibody, Quant Crossmatch 12/09/16 12/09/16 12/09/16 12:02 13:27 13:27 WBC RBC Hgb Hct MCV MCHC RDW Plt Count Lymph % (Auto) Colbert % (Auto) Colbert # Baso # Seg Neutrophils % Seg Neuts % (Manual) Lymphocytes % (Manual) Monocytes % (Manual) Nucleated RBC % Seg Neutrophils # Seg Neutrophils # Man Lymphocytes # (Manual) Monocytes # (Manual) Percent Retic Haptoglobin PT INR Fibrinogen D-Dimer POC ABG pH 7.326 L POC ABG pCO2 POC ABG pO2 115 H Sodium Potassium Chloride Carbon Dioxide BUN Creatinine Glucose POC Glucose Lactic Acid Calcium Phosphorus Magnesium Iron 15 L TIBC 134 L Transferrin Total Bilirubin Direct Bilirubin AST ALT Alkaline Phosphatase Lactate Dehydrogenase CK-MB (CK-2) Troponin T C-Reactive Protein Total Protein Albumin Triglycerides Cholesterol HDL Cholesterol Vitamin B12 > 2000 H Urine Creatinine Urine Total Protein Heparin-induced Plt Ab Hep Bs Antibody, Quant Crossmatch 12/09/16 12/09/16 12/09/16 13:27 13:27 16:28 WBC RBC Hgb Hct MCV MCHC RDW Plt Count Lymph % (Auto) Colbert % (Auto) Colbert # Baso # Seg Neutrophils % Seg Neuts % (Manual) Lymphocytes % (Manual) Monocytes % (Manual) Nucleated RBC % Seg Neutrophils # Seg Neutrophils # Man Lymphocytes # (Manual) Monocytes # (Manual) Percent Retic Haptoglobin PT INR Fibrinogen D-Dimer POC ABG pH POC ABG pCO2 POC ABG pO2 Sodium Potassium Chloride Carbon Dioxide BUN Creatinine Glucose POC Glucose 199 H Lactic Acid Calcium Phosphorus Magnesium Iron TIBC Transferrin Total Bilirubin Direct Bilirubin AST ALT Alkaline Phosphatase Lactate Dehydrogenase CK-MB (CK-2) Troponin T C-Reactive Protein Total Protein Albumin Triglycerides Cholesterol HDL Cholesterol Vitamin B12 Urine Creatinine Urine Total Protein Heparin-induced Plt Ab Weak positive H Hep Bs Antibody, Quant <5 L Crossmatch 12/09/16 12/09/16 12/10/16 23:27 Unknown 05:36 WBC 11.3 H RBC 2.92 L Hgb 8.4 L Hct 25.3 L MCV MCHC RDW 16.9 H Plt Count 31 L Lymph % (Auto) Colbert % (Auto) Colbert # Baso # Seg Neutrophils % Seg Neuts % (Manual) Lymphocytes % (Manual) Monocytes % (Manual) Nucleated RBC % Seg Neutrophils # Seg Neutrophils # Man Lymphocytes # (Manual) Monocytes # (Manual) Percent Retic Haptoglobin PT INR Fibrinogen D-Dimer POC ABG pH POC ABG pCO2 POC ABG pO2 Sodium Potassium Chloride Carbon Dioxide BUN Creatinine Glucose POC Glucose 247 H 248 H Lactic Acid Calcium Phosphorus Magnesium Iron TIBC Transferrin Total Bilirubin Direct Bilirubin AST ALT Alkaline Phosphatase Lactate Dehydrogenase CK-MB (CK-2) Troponin T C-Reactive Protein Total Protein Albumin Triglycerides Cholesterol HDL Cholesterol Vitamin B12 Urine Creatinine Urine Total Protein Heparin-induced Plt Ab Hep Bs Antibody, Quant Crossmatch 12/10/16 12/10/16 12/10/16 09:55 09:55 11:49 WBC 21.2 H RBC 3.37 L Hgb 9.6 L Hct 29.5 L MCV MCHC RDW 16.3 H Plt Count 102 L D Lymph % (Auto) Colbert % (Auto) Colbert # Baso # Seg Neutrophils % Seg Neuts % (Manual) Lymphocytes % (Manual) Monocytes % (Manual) Nucleated RBC % Seg Neutrophils # Seg Neutrophils # Man Lymphocytes # (Manual) Monocytes # (Manual) Percent Retic Haptoglobin PT INR Fibrinogen D-Dimer POC ABG pH POC ABG pCO2 POC ABG pO2 Sodium Potassium Chloride 107.4 H Carbon Dioxide 21 L BUN 37 H Creatinine 4.2 H D Glucose 174 H POC Glucose 265 H Lactic Acid Calcium Phosphorus Magnesium Iron TIBC Transferrin Total Bilirubin Direct Bilirubin AST ALT Alkaline Phosphatase Lactate Dehydrogenase CK-MB (CK-2) Troponin T C-Reactive Protein Total Protein Albumin Triglycerides Cholesterol HDL Cholesterol Vitamin B12 Urine Creatinine Urine Total Protein Heparin-induced Plt Ab Hep Bs Antibody, Quant Crossmatch 12/10/16 12/10/16 12/11/16 17:56 23:44 04:30 WBC 23.5 H RBC 3.46 L Hgb 9.7 L Hct 30.1 L MCV MCHC RDW 16.4 H Plt Count 115 L Lymph % (Auto) Colbert % (Auto) Colbert # Baso # Seg Neutrophils % Seg Neuts % (Manual) 84.0 H Lymphocytes % (Manual) 5.0 L Monocytes % (Manual) 10.0 H Nucleated RBC % 1.0 H Seg Neutrophils # Seg Neutrophils # Man 19.7 H Lymphocytes # (Manual) Monocytes # (Manual) 2.4 H Percent Retic Haptoglobin PT INR Fibrinogen D-Dimer POC ABG pH POC ABG pCO2 POC ABG pO2 Sodium Potassium Chloride Carbon Dioxide BUN Creatinine Glucose POC Glucose 118 H 378 H Lactic Acid Calcium Phosphorus Magnesium Iron TIBC Transferrin Total Bilirubin Direct Bilirubin AST ALT Alkaline Phosphatase Lactate Dehydrogenase CK-MB (CK-2) Troponin T C-Reactive Protein Total Protein Albumin Triglycerides Cholesterol HDL Cholesterol Vitamin B12 Urine Creatinine Urine Total Protein Heparin-induced Plt Ab Hep Bs Antibody, Quant Crossmatch 12/11/16 12/11/16 12/11/16 04:30 05:33 12:48 WBC RBC Hgb Hct MCV MCHC RDW Plt Count Lymph % (Auto) Colbert % (Auto) Colbert # Baso # Seg Neutrophils % Seg Neuts % (Manual) Lymphocytes % (Manual) Monocytes % (Manual) Nucleated RBC % Seg Neutrophils # Seg Neutrophils # Man Lymphocytes # (Manual) Monocytes # (Manual) Percent Retic Haptoglobin PT INR Fibrinogen D-Dimer POC ABG pH POC ABG pCO2 POC ABG pO2 Sodium Potassium Chloride Carbon Dioxide 21 L BUN 50 H Creatinine 4.8 H Glucose 303 H POC Glucose 335 H 325 H Lactic Acid Calcium 8.2 L Phosphorus Magnesium Iron TIBC Transferrin Total Bilirubin Direct Bilirubin AST ALT Alkaline Phosphatase Lactate Dehydrogenase CK-MB (CK-2) Troponin T C-Reactive Protein Total Protein Albumin Triglycerides Cholesterol HDL Cholesterol Vitamin B12 Urine Creatinine Urine Total Protein Heparin-induced Plt Ab Hep Bs Antibody, Quant Crossmatch 12/11/16 12/11/16 12/12/16 17:49 21:16 00:49 WBC RBC Hgb Hct MCV MCHC RDW Plt Count Lymph % (Auto) Colbert % (Auto) Colbert # Baso # Seg Neutrophils % Seg Neuts % (Manual) Lymphocytes % (Manual) Monocytes % (Manual) Nucleated RBC % Seg Neutrophils # Seg Neutrophils # Man Lymphocytes # (Manual) Monocytes # (Manual) Percent Retic Haptoglobin PT INR Fibrinogen D-Dimer POC ABG pH POC ABG pCO2 POC ABG pO2 Sodium Potassium Chloride Carbon Dioxide BUN Creatinine Glucose POC Glucose 368 H 162 H 225 H Lactic Acid Calcium Phosphorus Magnesium Iron TIBC Transferrin Total Bilirubin Direct Bilirubin AST ALT Alkaline Phosphatase Lactate Dehydrogenase CK-MB (CK-2) Troponin T C-Reactive Protein Total Protein Albumin Triglycerides Cholesterol HDL Cholesterol Vitamin B12 Urine Creatinine Urine Total Protein Heparin-induced Plt Ab Hep Bs Antibody, Quant Crossmatch 12/12/16 12/12/16 12/12/16 06:09 07:52 08:18 WBC 24.1 H RBC 3.16 L Hgb 9.0 L Hct 29.4 L MCV MCHC RDW 16.6 H Plt Count 96 L Lymph % (Auto) Colbert % (Auto) Colbert # Baso # Seg Neutrophils % Seg Neuts % (Manual) 75.0 H Lymphocytes % (Manual) Monocytes % (Manual) Nucleated RBC % Seg Neutrophils # Seg Neutrophils # Man 18.1 H Lymphocytes # (Manual) Monocytes # (Manual) 1.4 H Percent Retic Haptoglobin PT INR Fibrinogen D-Dimer POC ABG pH POC ABG pCO2 POC ABG pO2 Sodium Potassium Chloride Carbon Dioxide BUN Creatinine Glucose POC Glucose 428 H 418 H Lactic Acid Calcium Phosphorus Magnesium Iron TIBC Transferrin Total Bilirubin Direct Bilirubin AST ALT Alkaline Phosphatase Lactate Dehydrogenase CK-MB (CK-2) Troponin T C-Reactive Protein Total Protein Albumin Triglycerides Cholesterol HDL Cholesterol Vitamin B12 Urine Creatinine Urine Total Protein Heparin-induced Plt Ab Hep Bs Antibody, Quant Crossmatch 12/12/16 12/12/16 12/12/16 08:18 11:31 17:03 WBC RBC Hgb Hct MCV MCHC RDW Plt Count Lymph % (Auto) Colbert % (Auto) Colbert # Baso # Seg Neutrophils % Seg Neuts % (Manual) Lymphocytes % (Manual) Monocytes % (Manual) Nucleated RBC % Seg Neutrophils # Seg Neutrophils # Man Lymphocytes # (Manual) Monocytes # (Manual) Percent Retic Haptoglobin PT INR Fibrinogen D-Dimer POC ABG pH POC ABG pCO2 POC ABG pO2 Sodium Potassium Chloride Carbon Dioxide 12 L D BUN 41 H Creatinine 4.5 H Glucose 369 H POC Glucose 212 H 422 H Lactic Acid Calcium Phosphorus Magnesium Iron TIBC Transferrin Total Bilirubin Direct Bilirubin AST ALT Alkaline Phosphatase Lactate Dehydrogenase CK-MB (CK-2) Troponin T C-Reactive Protein Total Protein Albumin Triglycerides Cholesterol HDL Cholesterol Vitamin B12 Urine Creatinine Urine Total Protein Heparin-induced Plt Ab Hep Bs Antibody, Quant Crossmatch 12/12/16 12/13/16 12/13/16 21:35 07:49 07:49 WBC 24.0 H RBC 2.90 L Hgb 8.3 L Hct 25.8 L MCV MCHC RDW 15.5 H Plt Count 120 L Lymph % (Auto) Colbert % (Auto) Colbert # Baso # Seg Neutrophils % Seg Neuts % (Manual) 89.0 H Lymphocytes % (Manual) 7.0 L Monocytes % (Manual) Nucleated RBC % Seg Neutrophils # Seg Neutrophils # Man 21.4 H Lymphocytes # (Manual) Monocytes # (Manual) Percent Retic Haptoglobin PT INR Fibrinogen D-Dimer POC ABG pH POC ABG pCO2 POC ABG pO2 Sodium Potassium 3.2 L Chloride Carbon Dioxide BUN 21 H Creatinine 3.0 H Glucose 21 L* POC Glucose 185 H Lactic Acid Calcium Phosphorus Magnesium Iron TIBC Transferrin Total Bilirubin Direct Bilirubin AST ALT Alkaline Phosphatase Lactate Dehydrogenase CK-MB (CK-2) Troponin T C-Reactive Protein Total Protein Albumin Triglycerides Cholesterol HDL Cholesterol Vitamin B12 Urine Creatinine Urine Total Protein Heparin-induced Plt Ab Hep Bs Antibody, Quant Crossmatch 12/13/16 12/13/16 12/13/16 09:57 11:02 16:52 WBC RBC Hgb Hct MCV MCHC RDW Plt Count Lymph % (Auto) Colbert % (Auto) Colbert # Baso # Seg Neutrophils % Seg Neuts % (Manual) Lymphocytes % (Manual) Monocytes % (Manual) Nucleated RBC % Seg Neutrophils # Seg Neutrophils # Man Lymphocytes # (Manual) Monocytes # (Manual) Percent Retic Haptoglobin PT INR Fibrinogen D-Dimer POC ABG pH POC ABG pCO2 POC ABG pO2 Sodium Potassium Chloride Carbon Dioxide BUN Creatinine Glucose POC Glucose < 40 L 231 H 312 H Lactic Acid Calcium Phosphorus Magnesium Iron TIBC Transferrin Total Bilirubin Direct Bilirubin AST ALT Alkaline Phosphatase Lactate Dehydrogenase CK-MB (CK-2) Troponin T C-Reactive Protein Total Protein Albumin Triglycerides Cholesterol HDL Cholesterol Vitamin B12 Urine Creatinine Urine Total Protein Heparin-induced Plt Ab Hep Bs Antibody, Quant Crossmatch 12/13/16 12/14/16 12/14/16 21:32 07:07 07:07 WBC 16.7 H RBC 2.80 L Hgb 7.9 L Hct 24.7 L MCV MCHC RDW 15.4 H Plt Count 131 L Lymph % (Auto) 13.1 L Colbert % (Auto) Colbert # 1.2 H Baso # Seg Neutrophils % 78.3 H Seg Neuts % (Manual) Lymphocytes % (Manual) Monocytes % (Manual) Nucleated RBC % Seg Neutrophils # 13.1 H Seg Neutrophils # Man Lymphocytes # (Manual) Monocytes # (Manual) Percent Retic Haptoglobin PT INR Fibrinogen D-Dimer POC ABG pH POC ABG pCO2 POC ABG pO2 Sodium Potassium 3.5 L Chloride Carbon Dioxide BUN 30 H Creatinine 4.6 H D Glucose 181 H POC Glucose 275 H Lactic Acid Calcium 7.7 L Phosphorus Magnesium Iron TIBC Transferrin Total Bilirubin Direct Bilirubin AST ALT Alkaline Phosphatase Lactate Dehydrogenase CK-MB (CK-2) Troponin T C-Reactive Protein Total Protein Albumin Triglycerides Cholesterol HDL Cholesterol Vitamin B12 Urine Creatinine Urine Total Protein Heparin-induced Plt Ab Hep Bs Antibody, Quant Crossmatch 12/14/16 12/14/16 12/14/16 07:46 11:35 16:24 WBC RBC Hgb Hct MCV MCHC RDW Plt Count Lymph % (Auto) Colbert % (Auto) Colbert # Baso # Seg Neutrophils % Seg Neuts % (Manual) Lymphocytes % (Manual) Monocytes % (Manual) Nucleated RBC % Seg Neutrophils # Seg Neutrophils # Man Lymphocytes # (Manual) Monocytes # (Manual) Percent Retic Haptoglobin PT INR Fibrinogen D-Dimer POC ABG pH POC ABG pCO2 POC ABG pO2 Sodium Potassium Chloride Carbon Dioxide BUN Creatinine Glucose POC Glucose 189 H 254 H 466 H Lactic Acid Calcium Phosphorus Magnesium Iron TIBC Transferrin Total Bilirubin Direct Bilirubin AST ALT Alkaline Phosphatase Lactate Dehydrogenase CK-MB (CK-2) Troponin T C-Reactive Protein Total Protein Albumin Triglycerides Cholesterol HDL Cholesterol Vitamin B12 Urine Creatinine Urine Total Protein Heparin-induced Plt Ab Hep Bs Antibody, Quant Crossmatch 12/14/16 12/15/16 12/15/16 20:57 06:27 07:46 WBC RBC Hgb Hct MCV MCHC RDW Plt Count Lymph % (Auto) Colbert % (Auto) Colbert # Baso # Seg Neutrophils % Seg Neuts % (Manual) Lymphocytes % (Manual) Monocytes % (Manual) Nucleated RBC % Seg Neutrophils # Seg Neutrophils # Man Lymphocytes # (Manual) Monocytes # (Manual) Percent Retic Haptoglobin PT INR Fibrinogen D-Dimer POC ABG pH POC ABG pCO2 POC ABG pO2 Sodium Potassium Chloride Carbon Dioxide BUN Creatinine Glucose POC Glucose 301 H 183 H 231 H Lactic Acid Calcium Phosphorus Magnesium Iron TIBC Transferrin Total Bilirubin Direct Bilirubin AST ALT Alkaline Phosphatase Lactate Dehydrogenase CK-MB (CK-2) Troponin T C-Reactive Protein Total Protein Albumin Triglycerides Cholesterol HDL Cholesterol Vitamin B12 Urine Creatinine Urine Total Protein Heparin-induced Plt Ab Hep Bs Antibody, Quant Crossmatch 12/15/16 12/15/16 12/15/16 11:38 15:34 20:51 WBC RBC Hgb Hct MCV MCHC RDW Plt Count Lymph % (Auto) Colbert % (Auto) Colbert # Baso # Seg Neutrophils % Seg Neuts % (Manual) Lymphocytes % (Manual) Monocytes % (Manual) Nucleated RBC % Seg Neutrophils # Seg Neutrophils # Man Lymphocytes # (Manual) Monocytes # (Manual) Percent Retic Haptoglobin PT INR Fibrinogen D-Dimer POC ABG pH POC ABG pCO2 POC ABG pO2 Sodium Potassium Chloride Carbon Dioxide BUN Creatinine Glucose POC Glucose 375 H 313 H 274 H Lactic Acid Calcium Phosphorus Magnesium Iron TIBC Transferrin Total Bilirubin Direct Bilirubin AST ALT Alkaline Phosphatase Lactate Dehydrogenase CK-MB (CK-2) Troponin T C-Reactive Protein Total Protein Albumin Triglycerides Cholesterol HDL Cholesterol Vitamin B12 Urine Creatinine Urine Total Protein Heparin-induced Plt Ab Hep Bs Antibody, Quant Crossmatch 12/16/16 12/16/16 12/16/16 08:26 09:12 17:13 WBC RBC Hgb Hct MCV MCHC RDW Plt Count Lymph % (Auto) Colbert % (Auto) Colbert # Baso # Seg Neutrophils % Seg Neuts % (Manual) Lymphocytes % (Manual) Monocytes % (Manual) Nucleated RBC % Seg Neutrophils # Seg Neutrophils # Man Lymphocytes # (Manual) Monocytes # (Manual) Percent Retic Haptoglobin PT INR Fibrinogen D-Dimer POC ABG pH POC ABG pCO2 POC ABG pO2 Sodium Potassium Chloride Carbon Dioxide BUN Creatinine Glucose POC Glucose 59 L 127 H > 500 H Lactic Acid Calcium Phosphorus Magnesium Iron TIBC Transferrin Total Bilirubin Direct Bilirubin AST ALT Alkaline Phosphatase Lactate Dehydrogenase CK-MB (CK-2) Troponin T C-Reactive Protein Total Protein Albumin Triglycerides Cholesterol HDL Cholesterol Vitamin B12 Urine Creatinine Urine Total Protein Heparin-induced Plt Ab Hep Bs Antibody, Quant Crossmatch 12/16/16 12/16/16 12/16/16 22:59 Unknown Unknown WBC 17.2 H RBC 2.83 L Hgb 7.9 L Hct 24.4 L MCV MCHC RDW Plt Count Lymph % (Auto) 9.2 L Colbert % (Auto) Colbert # 0.9 H Baso # Seg Neutrophils % 84.1 H Seg Neuts % (Manual) Lymphocytes % (Manual) Monocytes % (Manual) Nucleated RBC % Seg Neutrophils # 14.5 H Seg Neutrophils # Man Lymphocytes # (Manual) Monocytes # (Manual) Percent Retic Haptoglobin PT INR Fibrinogen D-Dimer POC ABG pH POC ABG pCO2 POC ABG pO2 Sodium Potassium Chloride Carbon Dioxide BUN 43 H Creatinine 5.4 H Glucose 131 H POC Glucose 320 H Lactic Acid Calcium 6.9 L Phosphorus Magnesium Iron TIBC Transferrin Total Bilirubin Direct Bilirubin AST ALT Alkaline Phosphatase Lactate Dehydrogenase CK-MB (CK-2) Troponin T C-Reactive Protein Total Protein Albumin Triglycerides Cholesterol HDL Cholesterol Vitamin B12 Urine Creatinine Urine Total Protein Heparin-induced Plt Ab Hep Bs Antibody, Quant Crossmatch 12/17/16 12/17/16 12/17/16 08:26 08:56 09:52 WBC RBC Hgb Hct MCV MCHC RDW Plt Count Lymph % (Auto) Colbert % (Auto) Colbert # Baso # Seg Neutrophils % Seg Neuts % (Manual) Lymphocytes % (Manual) Monocytes % (Manual) Nucleated RBC % Seg Neutrophils # Seg Neutrophils # Man Lymphocytes # (Manual) Monocytes # (Manual) Percent Retic Haptoglobin PT INR Fibrinogen D-Dimer POC ABG pH POC ABG pCO2 POC ABG pO2 Sodium Potassium Chloride Carbon Dioxide BUN Creatinine Glucose POC Glucose < 40 L 40 L 133 H Lactic Acid Calcium Phosphorus Magnesium Iron TIBC Transferrin Total Bilirubin Direct Bilirubin AST ALT Alkaline Phosphatase Lactate Dehydrogenase CK-MB (CK-2) Troponin T C-Reactive Protein Total Protein Albumin Triglycerides Cholesterol HDL Cholesterol Vitamin B12 Urine Creatinine Urine Total Protein Heparin-induced Plt Ab Hep Bs Antibody, Quant Crossmatch 12/17/16 12/17/16 12/17/16 12:51 16:08 21:00 WBC RBC Hgb Hct MCV MCHC RDW Plt Count Lymph % (Auto) Colbert % (Auto) Colbert # Baso # Seg Neutrophils % Seg Neuts % (Manual) Lymphocytes % (Manual) Monocytes % (Manual) Nucleated RBC % Seg Neutrophils # Seg Neutrophils # Man Lymphocytes # (Manual) Monocytes # (Manual) Percent Retic Haptoglobin PT INR Fibrinogen D-Dimer POC ABG pH POC ABG pCO2 POC ABG pO2 Sodium Potassium Chloride Carbon Dioxide BUN Creatinine Glucose POC Glucose 177 H 303 H 489 H Lactic Acid Calcium Phosphorus Magnesium Iron TIBC Transferrin Total Bilirubin Direct Bilirubin AST ALT Alkaline Phosphatase Lactate Dehydrogenase CK-MB (CK-2) Troponin T C-Reactive Protein Total Protein Albumin Triglycerides Cholesterol HDL Cholesterol Vitamin B12 Urine Creatinine Urine Total Protein Heparin-induced Plt Ab Hep Bs Antibody, Quant Crossmatch 12/17/16 12/17/16 12/18/16 Unknown Unknown 05:50 WBC 16.6 H 15.6 H RBC 2.63 L 2.58 L Hgb 7.5 L 7.3 L Hct 23.3 L 23.0 L MCV MCHC RDW 15.3 H 15.9 H Plt Count Lymph % (Auto) 7.7 L 8.7 L Colbert % (Auto) Colbert # 0.9 H Baso # Seg Neutrophils % 85.8 H 83.6 H Seg Neuts % (Manual) Lymphocytes % (Manual) Monocytes % (Manual) Nucleated RBC % Seg Neutrophils # 14.3 H 13.0 H Seg Neutrophils # Man Lymphocytes # (Manual) Monocytes # (Manual) Percent Retic Haptoglobin PT INR Fibrinogen D-Dimer POC ABG pH POC ABG pCO2 POC ABG pO2 Sodium Potassium 3.5 L Chloride Carbon Dioxide BUN 47 H Creatinine 5.2 H Glucose 173 H POC Glucose Lactic Acid Calcium 6.9 L Phosphorus Magnesium Iron TIBC Transferrin Total Bilirubin Direct Bilirubin AST ALT Alkaline Phosphatase Lactate Dehydrogenase CK-MB (CK-2) Troponin T C-Reactive Protein Total Protein Albumin Triglycerides Cholesterol HDL Cholesterol Vitamin B12 Urine Creatinine Urine Total Protein Heparin-induced Plt Ab Hep Bs Antibody, Quant Crossmatch 12/18/16 12/18/16 12/18/16 05:50 09:09 16:46 WBC RBC Hgb Hct MCV MCHC RDW Plt Count Lymph % (Auto) Colbert % (Auto) Colbert # Baso # Seg Neutrophils % Seg Neuts % (Manual) Lymphocytes % (Manual) Monocytes % (Manual) Nucleated RBC % Seg Neutrophils # Seg Neutrophils # Man Lymphocytes # (Manual) Monocytes # (Manual) Percent Retic Haptoglobin PT INR Fibrinogen D-Dimer POC ABG pH POC ABG pCO2 POC ABG pO2 Sodium Potassium Chloride Carbon Dioxide 17 L BUN 46 H Creatinine 5.0 H Glucose 252 H POC Glucose 349 H 324 H Lactic Acid Calcium 6.8 L Phosphorus Magnesium Iron TIBC Transferrin Total Bilirubin Direct Bilirubin AST ALT Alkaline Phosphatase Lactate Dehydrogenase CK-MB (CK-2) Troponin T C-Reactive Protein Total Protein Albumin Triglycerides Cholesterol HDL Cholesterol Vitamin B12 Urine Creatinine Urine Total Protein Heparin-induced Plt Ab Hep Bs Antibody, Quant Crossmatch 12/18/16 12/19/16 12/19/16 21:14 08:12 10:23 WBC 13.7 H RBC 2.60 L Hgb 7.5 L Hct 23.1 L MCV MCHC RDW 15.7 H Plt Count Lymph % (Auto) 9.1 L Colbert % (Auto) Colbert # 0.9 H Baso # Seg Neutrophils % 82.2 H Seg Neuts % (Manual) Lymphocytes % (Manual) Monocytes % (Manual) Nucleated RBC % Seg Neutrophils # 11.3 H Seg Neutrophils # Man Lymphocytes # (Manual) Monocytes # (Manual) Percent Retic Haptoglobin PT INR Fibrinogen D-Dimer POC ABG pH POC ABG pCO2 POC ABG pO2 Sodium Potassium Chloride Carbon Dioxide BUN Creatinine Glucose POC Glucose 316 H 464 H Lactic Acid Calcium Phosphorus Magnesium Iron TIBC Transferrin Total Bilirubin Direct Bilirubin AST ALT Alkaline Phosphatase Lactate Dehydrogenase CK-MB (CK-2) Troponin T C-Reactive Protein Total Protein Albumin Triglycerides Cholesterol HDL Cholesterol Vitamin B12 Urine Creatinine Urine Total Protein Heparin-induced Plt Ab Hep Bs Antibody, Quant Crossmatch 12/19/16 12/19/16 12/19/16 10:23 11:39 16:00 WBC RBC Hgb Hct MCV MCHC RDW Plt Count Lymph % (Auto) Colbert % (Auto) Colbert # Baso # Seg Neutrophils % Seg Neuts % (Manual) Lymphocytes % (Manual) Monocytes % (Manual) Nucleated RBC % Seg Neutrophils # Seg Neutrophils # Man Lymphocytes # (Manual) Monocytes # (Manual) Percent Retic Haptoglobin PT INR Fibrinogen D-Dimer POC ABG pH POC ABG pCO2 POC ABG pO2 Sodium Potassium 3.5 L Chloride Carbon Dioxide 14 L BUN 22 H Creatinine 3.2 H Glucose 446 H POC Glucose 344 H 467 H Lactic Acid Calcium 6.9 L Phosphorus 1.70 L D Magnesium Iron TIBC Transferrin Total Bilirubin Direct Bilirubin AST ALT Alkaline Phosphatase Lactate Dehydrogenase CK-MB (CK-2) Troponin T C-Reactive Protein Total Protein Albumin Triglycerides Cholesterol HDL Cholesterol Vitamin B12 Urine Creatinine Urine Total Protein Heparin-induced Plt Ab Hep Bs Antibody, Quant Crossmatch 12/19/16 12/19/16 12/19/16 16:35 16:35 21:16 WBC 19.3 H RBC 2.37 L Hgb 6.9 L Hct 21.8 L MCV MCHC RDW 16.7 H Plt Count Lymph % (Auto) Colbert % (Auto) Colbert # Baso # Seg Neutrophils % Seg Neuts % (Manual) Lymphocytes % (Manual) Monocytes % (Manual) Nucleated RBC % Seg Neutrophils # Seg Neutrophils # Man Lymphocytes # (Manual) Monocytes # (Manual) Percent Retic Haptoglobin PT INR Fibrinogen D-Dimer POC ABG pH POC ABG pCO2 POC ABG pO2 Sodium Potassium 3.4 L Chloride Carbon Dioxide 17 L BUN 23 H Creatinine 3.2 H Glucose 427 H POC Glucose 397 H Lactic Acid Calcium 6.9 L Phosphorus 2.40 L D Magnesium Iron TIBC Transferrin Total Bilirubin Direct Bilirubin AST ALT Alkaline Phosphatase Lactate Dehydrogenase CK-MB (CK-2) Troponin T C-Reactive Protein Total Protein Albumin Triglycerides Cholesterol HDL Cholesterol Vitamin B12 Urine Creatinine Urine Total Protein Heparin-induced Plt Ab Hep Bs Antibody, Quant Crossmatch 12/20/16 12/20/16 12/20/16 06:00 06:00 07:55 WBC 17.5 H RBC 2.54 L Hgb 7.3 L Hct 23.5 L MCV MCHC RDW 16.4 H Plt Count Lymph % (Auto) 9.0 L Colbert % (Auto) Colbert # 1.1 H Baso # Seg Neutrophils % 83.0 H Seg Neuts % (Manual) Lymphocytes % (Manual) Monocytes % (Manual) Nucleated RBC % Seg Neutrophils # 14.5 H Seg Neutrophils # Man Lymphocytes # (Manual) Monocytes # (Manual) Percent Retic Haptoglobin PT INR Fibrinogen D-Dimer POC ABG pH POC ABG pCO2 POC ABG pO2 Sodium 136 L Potassium Chloride 92.4 L Carbon Dioxide 15 L BUN Creatinine 2.6 H Glucose 475 H POC Glucose > 500 H Lactic Acid Calcium Phosphorus Magnesium Iron TIBC Transferrin Total Bilirubin Direct Bilirubin AST ALT Alkaline Phosphatase Lactate Dehydrogenase CK-MB (CK-2) Troponin T C-Reactive Protein Total Protein Albumin Triglycerides Cholesterol HDL Cholesterol Vitamin B12 Urine Creatinine Urine Total Protein Heparin-induced Plt Ab Hep Bs Antibody, Quant Crossmatch 12/20/16 12/20/16 12/20/16 11:21 16:01 22:33 WBC RBC Hgb Hct MCV MCHC RDW Plt Count Lymph % (Auto) Colbert % (Auto) Colbert # Baso # Seg Neutrophils % Seg Neuts % (Manual) Lymphocytes % (Manual) Monocytes % (Manual) Nucleated RBC % Seg Neutrophils # Seg Neutrophils # Man Lymphocytes # (Manual) Monocytes # (Manual) Percent Retic Haptoglobin PT INR Fibrinogen D-Dimer POC ABG pH POC ABG pCO2 POC ABG pO2 Sodium Potassium Chloride Carbon Dioxide BUN Creatinine Glucose POC Glucose > 500 H 446 H > 500 H Lactic Acid Calcium Phosphorus Magnesium Iron TIBC Transferrin Total Bilirubin Direct Bilirubin AST ALT Alkaline Phosphatase Lactate Dehydrogenase CK-MB (CK-2) Troponin T C-Reactive Protein Total Protein Albumin Triglycerides Cholesterol HDL Cholesterol Vitamin B12 Urine Creatinine Urine Total Protein Heparin-induced Plt Ab Hep Bs Antibody, Quant Crossmatch 12/20/16 12/20/16 12/21/16 22:37 23:00 00:48 WBC RBC Hgb Hct MCV MCHC RDW Plt Count Lymph % (Auto) Colbert % (Auto) Colbert # Baso # Seg Neutrophils % Seg Neuts % (Manual) Lymphocytes % (Manual) Monocytes % (Manual) Nucleated RBC % Seg Neutrophils # Seg Neutrophils # Man Lymphocytes # (Manual) Monocytes # (Manual) Percent Retic Haptoglobin PT INR Fibrinogen D-Dimer POC ABG pH POC ABG pCO2 POC ABG pO2 Sodium 128 L D Potassium Chloride 83.2 L Carbon Dioxide 11 L BUN 32 H Creatinine 3.5 H Glucose 822 H* POC Glucose > 500 H > 500 H Lactic Acid Calcium 8.2 L Phosphorus Magnesium Iron TIBC Transferrin Total Bilirubin Direct Bilirubin AST ALT Alkaline Phosphatase Lactate Dehydrogenase CK-MB (CK-2) Troponin T C-Reactive Protein Total Protein Albumin Triglycerides Cholesterol HDL Cholesterol Vitamin B12 Urine Creatinine Urine Total Protein Heparin-induced Plt Ab Hep Bs Antibody, Quant Crossmatch 12/21/16 12/21/16 12/21/16 03:17 05:00 05:00 WBC 15.7 H RBC 2.32 L Hgb 6.8 L Hct 20.6 L MCV MCHC RDW 16.3 H Plt Count Lymph % (Auto) 11.5 L Colbert % (Auto) 7.4 H Colbert # 1.2 H Baso # Seg Neutrophils % 78.7 H Seg Neuts % (Manual) Lymphocytes % (Manual) Monocytes % (Manual) Nucleated RBC % Seg Neutrophils # 12.4 H Seg Neutrophils # Man Lymphocytes # (Manual) Monocytes # (Manual) Percent Retic Haptoglobin PT INR Fibrinogen D-Dimer POC ABG pH POC ABG pCO2 POC ABG pO2 Sodium Potassium Chloride 95.3 L Carbon Dioxide 20 L D BUN 32 H Creatinine 3.7 H Glucose 243 H POC Glucose 428 H Lactic Acid Calcium 8.1 L Phosphorus Magnesium Iron TIBC 193.20 L Transferrin 138 L Total Bilirubin Direct Bilirubin AST ALT Alkaline Phosphatase Lactate Dehydrogenase CK-MB (CK-2) Troponin T C-Reactive Protein Total Protein Albumin Triglycerides Cholesterol HDL Cholesterol Vitamin B12 Urine Creatinine Urine Total Protein Heparin-induced Plt Ab Hep Bs Antibody, Quant Crossmatch 12/21/16 12/21/16 12/21/16 05:40 06:49 08:20 WBC RBC Hgb Hct MCV MCHC RDW Plt Count Lymph % (Auto) Colbert % (Auto) Colbert # Baso # Seg Neutrophils % Seg Neuts % (Manual) Lymphocytes % (Manual) Monocytes % (Manual) Nucleated RBC % Seg Neutrophils # Seg Neutrophils # Man Lymphocytes # (Manual) Monocytes # (Manual) Percent Retic Haptoglobin PT INR Fibrinogen D-Dimer POC ABG pH POC ABG pCO2 POC ABG pO2 Sodium Potassium Chloride Carbon Dioxide BUN Creatinine Glucose POC Glucose 271 H 236 H 222 H Lactic Acid Calcium Phosphorus Magnesium Iron TIBC Transferrin Total Bilirubin Direct Bilirubin AST ALT Alkaline Phosphatase Lactate Dehydrogenase CK-MB (CK-2) Troponin T C-Reactive Protein Total Protein Albumin Triglycerides Cholesterol HDL Cholesterol Vitamin B12 Urine Creatinine Urine Total Protein Heparin-induced Plt Ab Hep Bs Antibody, Quant Crossmatch 12/21/16 12/21/16 12/21/16 16:28 18:26 21:10 WBC RBC Hgb Hct MCV MCHC RDW Plt Count Lymph % (Auto) Colbert % (Auto) Colbert # Baso # Seg Neutrophils % Seg Neuts % (Manual) Lymphocytes % (Manual) Monocytes % (Manual) Nucleated RBC % Seg Neutrophils # Seg Neutrophils # Man Lymphocytes # (Manual) Monocytes # (Manual) Percent Retic Haptoglobin PT INR Fibrinogen D-Dimer POC ABG pH POC ABG pCO2 POC ABG pO2 Sodium Potassium Chloride Carbon Dioxide BUN Creatinine Glucose POC Glucose < 40 L 62 L 255 H Lactic Acid Calcium Phosphorus Magnesium Iron TIBC Transferrin Total Bilirubin Direct Bilirubin AST ALT Alkaline Phosphatase Lactate Dehydrogenase CK-MB (CK-2) Troponin T C-Reactive Protein Total Protein Albumin Triglycerides Cholesterol HDL Cholesterol Vitamin B12 Urine Creatinine Urine Total Protein Heparin-induced Plt Ab Hep Bs Antibody, Quant Crossmatch 12/22/16 12/22/16 12/22/16 03:38 06:45 06:45 WBC 17.4 H RBC 2.26 L Hgb 6.6 L Hct 20.5 L MCV MCHC RDW 15.7 H Plt Count Lymph % (Auto) 8.1 L Colbert % (Auto) Colbert # 0.9 H Baso # 0.2 H Seg Neutrophils % 84.3 H Seg Neuts % (Manual) Lymphocytes % (Manual) Monocytes % (Manual) Nucleated RBC % Seg Neutrophils # 14.6 H Seg Neutrophils # Man Lymphocytes # (Manual) Monocytes # (Manual) Percent Retic Haptoglobin PT INR Fibrinogen D-Dimer POC ABG pH POC ABG pCO2 POC ABG pO2 Sodium Potassium 3.3 L Chloride 95.5 L Carbon Dioxide 20 L BUN Creatinine 2.5 H Glucose 308 H POC Glucose 430 H Lactic Acid Calcium 8.2 L Phosphorus Magnesium Iron TIBC Transferrin Total Bilirubin Direct Bilirubin AST ALT Alkaline Phosphatase Lactate Dehydrogenase CK-MB (CK-2) Troponin T C-Reactive Protein Total Protein Albumin Triglycerides Cholesterol HDL Cholesterol Vitamin B12 Urine Creatinine Urine Total Protein Heparin-induced Plt Ab Hep Bs Antibody, Quant Crossmatch 12/22/16 12/22/16 12/22/16 08:31 12:50 15:46 WBC RBC Hgb Hct MCV MCHC RDW Plt Count Lymph % (Auto) Colbert % (Auto) Colbert # Baso # Seg Neutrophils % Seg Neuts % (Manual) Lymphocytes % (Manual) Monocytes % (Manual) Nucleated RBC % Seg Neutrophils # Seg Neutrophils # Man Lymphocytes # (Manual) Monocytes # (Manual) Percent Retic Haptoglobin PT INR Fibrinogen D-Dimer POC ABG pH POC ABG pCO2 POC ABG pO2 Sodium Potassium Chloride Carbon Dioxide BUN Creatinine Glucose POC Glucose 306 H 391 H Lactic Acid Calcium Phosphorus Magnesium Iron TIBC Transferrin Total Bilirubin Direct Bilirubin AST ALT Alkaline Phosphatase Lactate Dehydrogenase CK-MB (CK-2) Troponin T C-Reactive Protein Total Protein Albumin Triglycerides Cholesterol HDL Cholesterol Vitamin B12 Urine Creatinine Urine Total Protein Heparin-induced Plt Ab Hep Bs Antibody, Quant Crossmatch See Detail 12/22/16 12/22/16 12/23/16 17:13 21:45 06:42 WBC 17.9 H RBC 2.75 L Hgb 8.1 L Hct 24.8 L MCV MCHC RDW 17.1 H Plt Count Lymph % (Auto) Colbert % (Auto) Colbert # Baso # Seg Neutrophils % Seg Neuts % (Manual) Lymphocytes % (Manual) Monocytes % (Manual) Nucleated RBC % Seg Neutrophils # Seg Neutrophils # Man Lymphocytes # (Manual) Monocytes # (Manual) Percent Retic Haptoglobin PT INR Fibrinogen D-Dimer POC ABG pH POC ABG pCO2 POC ABG pO2 Sodium Potassium Chloride Carbon Dioxide BUN Creatinine Glucose POC Glucose > 500 H 449 H Lactic Acid Calcium Phosphorus Magnesium Iron TIBC Transferrin Total Bilirubin Direct Bilirubin AST ALT Alkaline Phosphatase Lactate Dehydrogenase CK-MB (CK-2) Troponin T C-Reactive Protein Total Protein Albumin Triglycerides Cholesterol HDL Cholesterol Vitamin B12 Urine Creatinine Urine Total Protein Heparin-induced Plt Ab Hep Bs Antibody, Quant Crossmatch 12/23/16 12/23/16 12/23/16 06:42 07:46 11:33 WBC RBC Hgb Hct MCV MCHC RDW Plt Count Lymph % (Auto) Colbert % (Auto) Colbert # Baso # Seg Neutrophils % Seg Neuts % (Manual) Lymphocytes % (Manual) Monocytes % (Manual) Nucleated RBC % Seg Neutrophils # Seg Neutrophils # Man Lymphocytes # (Manual) Monocytes # (Manual) Percent Retic Haptoglobin PT INR Fibrinogen D-Dimer POC ABG pH POC ABG pCO2 POC ABG pO2 Sodium Potassium 3.5 L Chloride 94.7 L Carbon Dioxide 19 L BUN 22 H Creatinine 2.9 H Glucose 401 H POC Glucose 449 H 298 H Lactic Acid Calcium 8.3 L Phosphorus Magnesium Iron TIBC Transferrin Total Bilirubin Direct Bilirubin AST ALT Alkaline Phosphatase Lactate Dehydrogenase CK-MB (CK-2) Troponin T C-Reactive Protein Total Protein Albumin Triglycerides Cholesterol HDL Cholesterol Vitamin B12 Urine Creatinine Urine Total Protein Heparin-induced Plt Ab Hep Bs Antibody, Quant Crossmatch 12/23/16 12/23/16 12/24/16 18:24 21:30 05:00 WBC RBC Hgb Hct MCV MCHC RDW Plt Count Lymph % (Auto) Colbert % (Auto) Colbert # Baso # Seg Neutrophils % Seg Neuts % (Manual) Lymphocytes % (Manual) Monocytes % (Manual) Nucleated RBC % Seg Neutrophils # Seg Neutrophils # Man Lymphocytes # (Manual) Monocytes # (Manual) Percent Retic Haptoglobin PT INR Fibrinogen D-Dimer POC ABG pH POC ABG pCO2 POC ABG pO2 Sodium Potassium 3.1 L Chloride 95.8 L Carbon Dioxide BUN Creatinine 1.8 H Glucose 106 H POC Glucose 177 H 455 H Lactic Acid Calcium Phosphorus Magnesium Iron TIBC Transferrin Total Bilirubin Direct Bilirubin AST ALT Alkaline Phosphatase Lactate Dehydrogenase CK-MB (CK-2) Troponin T C-Reactive Protein Total Protein Albumin Triglycerides Cholesterol HDL Cholesterol Vitamin B12 Urine Creatinine Urine Total Protein Heparin-induced Plt Ab Hep Bs Antibody, Quant Crossmatch
--- NOTE | 2016-12-24 10:51 | Progress Note ---
Assessment and Plan Assessment and plan: Cardiac arrest with V. fib - Likely from hyperkalemia, currently patient is stable. Was treated with amiodarone - No recurrence Acute kidney injury secondary to ATN - Nephrology is following.She is going to continue hemodialysis. ASHELY improving. Cr 1.8. Will need outpatient hemodialysis arranged. Metabolic Acidosis, resolved. Acute hypoxic respiratory failure. Resolved. Now extubated DKA: - resolved - On sliding insulin Diabetes mellitus type 2. Added Novolin 70/30 Acute metabolic encephalopathy, resolved Leukocytosis +GNR in trach aspirate, pseudomonas aeruginosa - Completed PO levaquin - ID is following -DVT prophylaxis: SCDs only due to recent SAH Thrombocytopenia - Resolved Acute on chronic anemia of chronic disease - Hemoglobin is 8.1 today after 2 Units PRBC yesterday Depression - Psych consulted and recommend O/P mental health follow up. Disposition - Patient needs O/P dialysis set up. History Interval history: No chest pain, No SOB Blood glucose elevated Hospitalist Physical - Physical exam Narrative exam: Gen Appearance: No acute distress, morbidly obese HEENT: normocephalic, atraumatic Neck: supple, no JVD Lungs: Clear to auscultation bilaterally, no wheeze. Heart: S1 and S2 regular, no murmurs or gallop Abdomen: Soft non-tender, non-distended, normal bowel sounds Extremity: No edema, clubbing or cyanosis Neuro : Awake, alert,oriented, moves all ext - Constitutional Vitals: Temp Pulse Resp BP Pulse Ox 98.3 F 95 H 20 124/74 98 12/24/16 08:58 12/24/16 09:54 12/24/16 09:54 12/24/16 09:54 12/24/16 08:58 General appearance: Present: no acute distress (resting comfortably) Results - Labs CBC & Chem 7: 12/23/16 06:42 12/24/16 05:00 Labs: Laboratory Last Values WBC 17.9 K/mm3 (4.5-11.0) H 12/23/16 06:42 RBC 2.75 M/mm3 (3.65-5.03) L 12/23/16 06:42 Hgb 8.1 gm/dl (10.1-14.3) L 12/23/16 06:42 Hct 24.8 % (30.3-42.9) L 12/23/16 06:42 MCV 90 fl (79-97) 12/23/16 06:42 MCH 29 pg (28-32) 12/23/16 06:42 MCHC 33 % (30-34) 12/23/16 06:42 RDW 17.1 % (13.2-15.2) H 12/23/16 06:42 Plt Count 241 K/mm3 (140-440) 12/23/16 06:42 Lymph % (Auto) 8.1 % (13.4-35.0) L 12/22/16 06:45 [place] % (Auto) 5.3 % (0.0-7.3) 12/22/16 06:45 Eos % (Auto) 1.4 % (0.0-4.3) 12/22/16 06:45 Baso % (Auto) 0.9 % (0.0-1.8) 12/22/16 06:45 Lymph # 1.4 K/mm3 (1.2-5.4) 12/22/16 06:45 [place] # 0.9 K/mm3 (0.0-0.8) H 12/22/16 06:45 Eos # 0.2 K/mm3 (0.0-0.4) 12/22/16 06:45 Baso # 0.2 K/mm3 (0.0-0.1) H 12/22/16 06:45 Add Manual Diff Complete 12/13/16 07:49 Total Counted 100 12/13/16 07:49 Seg Neutrophils % 84.3 % (40.0-70.0) H 12/22/16 06:45 Seg Neuts % (Manual) 89.0 % (40.0-70.0) H 12/13/16 07:49 Band Neutrophils % 1.0 % 12/13/16 07:49 Lymphocytes % (Manual) 7.0 % (13.4-35.0) L 12/13/16 07:49 Reactive Lymphs % (Man) 0 % 12/13/16 07:49 Monocytes % (Manual) 3.0 % (0.0-7.3) 12/13/16 07:49 Eosinophils % (Manual) 0 % (0.0-4.3) 12/13/16 07:49 Basophils % (Manual) 0 % (0.0-1.8) 12/13/16 07:49 Metamyelocytes % 0 % 12/13/16 07:49 Myelocytes % 0 % 12/13/16 07:49 Promyelocytes % 0 % 12/13/16 07:49 Blast Cells % 0 % 12/13/16 07:49 Nucleated RBC % Not Reportable 12/13/16 07:49 Seg Neutrophils # 14.6 K/mm3 (1.8-7.7) H 12/22/16 06:45 Seg Neutrophils # Man 21.4 K/mm3 (1.8-7.7) H 12/13/16 07:49 Band Neutrophils # 0.2 K/mm3 12/13/16 07:49 Lymphocytes # (Manual) 1.7 K/mm3 (1.2-5.4) 12/13/16 07:49 Abs React Lymphs (Man) 0.0 K/mm3 12/13/16 07:49 Monocytes # (Manual) 0.7 K/mm3 (0.0-0.8) 12/13/16 07:49 Eosinophils # (Manual) 0.0 K/mm3 (0.0-0.4) 12/13/16 07:49 Basophils # (Manual) 0.0 K/mm3 (0.0-0.1) 12/13/16 07:49 Metamyelocytes # 0.0 K/mm3 12/13/16 07:49 Myelocytes # 0.0 K/mm3 12/13/16 07:49 Promyelocytes # 0.0 K/mm3 12/13/16 07:49 Blast Cells # 0.0 K/mm3 12/13/16 07:49 WBC Morphology Not Reportable 12/13/16 07:49 Hypersegmented Neuts Not Reportable 12/13/16 07:49 Hyposegmented Neuts Not Reportable 12/13/16 07:49 Hypogranular Neuts Not Reportable 12/13/16 07:49 Smudge Cells Not Reportable 12/13/16 07:49 Toxic Granulation Not Reportable 12/13/16 07:49 Toxic Vacuolation Not Reportable 12/13/16 07:49 Dohle Bodies Not Reportable 12/13/16 07:49 Pelger-Huet Anomaly Not Reportable 12/13/16 07:49 Mary Rods Not Reportable 12/13/16 07:49 Platelet Estimate Cons 12/13/16 07:49 Clumped Platelets Not Reportable 12/13/16 07:49 Plt Clumps, EDTA Not Reportable 12/13/16 07:49 Large Platelets Rare 12/13/16 07:49 Giant Platelets Not Reportable 12/13/16 07:49 Platelet Satelliting Not Reportable 12/13/16 07:49 Plt Morphology Comment Not Reportable 12/13/16 07:49 RBC Morphology Not Reportable 12/13/16 07:49 Dimorphic RBCs Not Reportable 12/13/16 07:49 Polychromasia Not Reportable 12/13/16 07:49 Hypochromasia 1+ 12/13/16 07:49 Poikilocytosis Not Reportable 12/13/16 07:49 Anisocytosis 1+ 12/13/16 07:49 Microcytosis Not Reportable 12/13/16 07:49 Macrocytosis Not Reportable 12/13/16 07:49 Spherocytes Not Reportable 12/13/16 07:49 Pappenheimer Bodies Not Reportable 12/13/16 07:49 Sickle Cells Not Reportable 12/13/16 07:49 Target Cells Few 12/13/16 07:49 Tear Drop Cells Not Reportable 12/13/16 07:49 Ovalocytes Not Reportable 12/13/16 07:49 Helmet Cells Not Reportable 12/13/16 07:49 [place] Bodies Not Reportable 12/13/16 07:49 [place] Rings Not Reportable 12/13/16 07:49 Jerri Cells Not Reportable 12/13/16 07:49 Bite Cells Not Reportable 12/13/16 07:49 Crenated Cell Not Reportable 12/13/16 07:49 Elliptocytes Not Reportable 12/13/16 07:49 Acanthocytes (Spur) Not Reportable 12/13/16 07:49 Rouleaux Not Reportable 12/13/16 07:49 Hemoglobin C Crystals Not Reportable 12/13/16 07:49 Schistocytes Not Reportable 12/13/16 07:49 Malaria parasites Not Reportable 12/13/16 07:49 Percent Retic 0.23 % (0.78-2.58) L 12/09/16 11:29 Michael Bodies Not Reportable 12/13/16 07:49 Haptoglobin 271 mg/dL (43-212) H 12/08/16 21:30 Hem Pathologist Commnt No 12/13/16 07:49 PT 15.3 Sec. (12.2-14.9) H 12/08/16 19:00 INR 1.22 (0.87-1.13) H 12/08/16 19:00 APTT 36.2 Sec. (24.2-36.6) 12/08/16 19:00 Fibrinogen 563 mg/dl (211-480) H 12/08/16 19:00 D-Dimer 5507.36 ng/mlDDU (0-234) H 12/08/16 19:00 Heparin Anti-Xa, Unfract Negative (Negative) 12/09/16 13:27 POC ABG pH 7.326 (7.35-7.45) L 12/09/16 12:02 POC ABG pCO2 37.7 (35-45) 12/09/16 12:02 POC ABG pO2 115 (80-105) H 12/09/16 12:02 POC ABG HCO3 19.7 12/09/16 12:02 POC ABG Total CO2 21 12/09/16 12:02 POC ABG O2 Sat 98 12/09/16 12:02 POC ABG Base Excess -6 12/09/16 12:02 FiO2 30 % 12/09/16 12:02 Sodium 137 mmol/L (137-145) 12/24/16 05:00 Potassium 3.1 mmol/L (3.6-5.0) L 12/24/16 05:00 Chloride 95.8 mmol/L (98-107) L 12/24/16 05:00 Carbon Dioxide 26 mmol/L (22-30) D 12/24/16 05:00 Anion Gap 18 mmol/L 12/24/16 05:00 BUN 11 mg/dL (7-17) 12/24/16 05:00 Creatinine 1.8 mg/dL (0.7-1.2) H 12/24/16 05:00 Estimated GFR 36 ml/min 12/24/16 05:00 BUN/Creatinine Ratio 6.11 % 12/24/16 05:00 Glucose 106 mg/dL (65-100) H 12/24/16 05:00 POC Glucose 455 (70-105) H 12/23/16 21:30 Lactic Acid 6.90 mmol/L (0.7-2.0) H* 12/07/16 07:30 Calcium 9.0 mg/dL (8.4-10.2) 12/24/16 05:00 Phosphorus 3.70 mg/dL (2.5-4.5) 12/21/16 05:00 Magnesium 1.90 mg/dL (1.7-2.3) 12/11/16 04:30 Iron 66 ug/dL (37-170) 12/21/16 05:00 TIBC 193.20 mcg/dL (250-450) L 12/21/16 05:00 Transferrin 138 mg/dl (192-382) L 12/21/16 05:00 Ferritin 321.4 ng/mL (13.0-400.0) 12/21/16 05:00 Total Bilirubin 1.40 mg/dL (0.1-1.2) H 12/07/16 21:35 Direct Bilirubin 0.9 mg/dL (0-0.2) H 12/07/16 21:35 Indirect Bilirubin 0.5 mg/dL 12/07/16 21:35 AST 94 units/L (5-40) H 12/07/16 21:35 ALT 142 units/L (7-56) H 12/07/16 21:35 Alkaline Phosphatase 249 units/L (35-129) H 12/07/16 21:35 Lactate Dehydrogenase 382 units/L (91-180) H 12/08/16 19:00 Total Creatine Kinase 123 units/L (30-135) 12/04/16 09:55 CK-MB (CK-2) 4.6 ng/mL (0.0-4.0) H 12/04/16 09:55 CK-MB (CK-2) Rel Index 3.7 (0-4) 12/04/16 09:55 Troponin T 0.140 ng/mL (0.00-0.029) H* D 12/04/16 09:55 C-Reactive Protein 39.40 mg/dL (0.00-1.30) H 12/07/16 06:00 Total Protein 4.6 g/dL (6.3-8.2) L D 12/07/16 21:35 Albumin 2.1 g/dL (3.9-5) L 12/07/16 21:35 Albumin/Globulin Ratio 0.8 % 12/07/16 21:35 Triglycerides 570 mg/dL (2-149) H 12/04/16 07:55 Cholesterol 221 mg/dL (50-199) H 12/04/16 07:55 LDL Cholesterol Direct TNR 12/04/16 07:55 HDL Cholesterol 37 mg/dL (40-59) L 12/04/16 07:55 Cholesterol/HDL Ratio 5.97 % 12/04/16 07:55 Vitamin B12 > 2000 pg/mL (211-911) H 12/09/16 13:27 Folate 8.10 ng/mL (7.3-26.0) 12/09/16 13:27 TSH 1.600 mlU/mL (0.270-4.200) 12/03/16 23:20 Urine Color Yellow (Yellow) 12/04/16 11:25 Urine Turbidity Slightly-cloudy (Clear) 12/04/16 11:25 Urine pH 5.0 (5.0-7.0) 12/04/16 11:25 Ur Specific [place] 1.018 (1.003-1.030) 12/04/16 11:25 Urine Protein 30 mg/dl mg/dL (Negative) 12/04/16 11:25 Urine Glucose (UA) >=500 mg/dL (Negative) 12/04/16 11:25 Urine Ketones Tr mg/dL (Negative) 12/04/16 11:25 Urine Blood Sm (Negative) 12/04/16 11:25 Urine Nitrite Neg (Negative) 12/04/16 11:25 Urine Bilirubin Neg (Negative) 12/04/16 11:25 Urine Urobilinogen < 2.0 mg/dL (<2.0) 12/04/16 11:25 Ur Leukocyte Esterase Neg (Negative) 12/04/16 11:25 Urine WBC (Auto) 4.0 /HPF (0.0-6.0) 12/04/16 11:25 Urine RBC (Auto) 2.0 /HPF (0.0-6.0) 12/04/16 11:25 U Epithel Cells (Auto) < 1.0 /HPF (0-13.0) 12/04/16 11:25 Urine Mucus Few /HPF 12/04/16 11:25 Urine Osmolality 419 Mosm/kg 12/04/16 11:25 Urine Creatinine 29.5 mg/dL (0.1-20.0) H 12/04/16 11:25 Protein/Creatinin Ratio 1.12 12/04/16 11:25 Urine Sodium 26 mEq/L 12/04/16 11:25 Urine Total Protein 33 mg/dL (5-11.8) H 12/04/16 11:25 Urine Opiates Screen Presumptive negative 12/04/16 11:25 Urine Methadone Screen Presumptive negative 12/04/16 11:25 Ur Barbiturates Screen Presumptive negative 12/04/16 11:25 Ur Phencyclidine Scrn Presumptive negative 12/04/16 11:25 Ur Amphetamines Screen Presumptive negative 12/04/16 11:25 U Benzodiazepines Scrn Presumptive negative 12/04/16 11:25 Urine Cocaine Screen Presumptive negative 12/04/16 11:25 U Marijuana (THC) Screen Presumptive positive 12/04/16 11:25 Drugs of Abuse Note Disclamer 12/04/16 11:25 Heparin-induced Plt Ab Weak positive (Negative) H 12/09/16 13:27 UF Heparin High Dose 0 % Release 12/09/16 13:27 ADRIENNE UFH Low Dose 0.1 0 % Release 12/09/16 13:27 ADRIENNE UFH Low Dose 0.5 0 % Release 12/09/16 13:27 Hep Bs Antigen Non-reactive (Negative) 12/09/16 13:27 Hep Bs Antibody, Quant <5 mIU/mL (>=10) L 12/09/16 13:27 Hep B Core Total Ab Nonreactive (Nonreactive) 12/09/16 13:27 Hepatitis C Antibody Non-reactive (NonReactive) 12/09/16 13:27 HIV 1&2 Antibody Rapid Non react (Non React) 12/09/16 13:27 HIV P24 Antigen Non react (Non React) 12/09/16 13:27 Schistocytes Smear None seen 12/09/16 11:29 Blood Type O POSITIVE 12/22/16 15:46 Antibody Screen TNR 12/22/16 15:46 ISAIAH Antibody Screen Negative 12/22/16 15:46 Crossmatch See Detail 12/22/16 15:46
[2016-12-24] MEDS: BENADRYL PO PRN ×2 (11:28→22:27)
[2016-12-24] MEDS ORDERED: D50W (25GM) IV ONE (20:46)
[2016-12-25 05:55] LABS: BUN/Creatinine Ratio 5.21; Chloride 101.2 mmol/L (98-107)
[2016-12-25 06:02] LABS: Potassium 2.9 mmol/L (3.6-5.0)
[2016-12-25] MEDS ORDERED: K-DUR PO ONE ×3 (06:15→10:15)
[2016-12-25] MEDS: PERCOCET 5/325 PO PRN ×3 (08:38→21:59)
[2016-12-25] MEDS: NOVOLOG SUB-Q SCH ×4 (08:50→22:10)
--- NOTE | 2016-12-25 09:42 | Progress Note ---
Assessment and Plan - Patient Problems (1) Pulmonary infiltrate in right lung on chest x-ray Current Visit: Yes Status: Acute Plan to address problem: On antibiotics. Follow up CXR to monitor the new developing infiltrate on the RLL- probable aspiration. 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 Continue with accucheck and glycemic control. Currently on insulin therapy. Primary service following (3) Metabolic encephalopathy Current Visit: Yes Status: Acute Plan to address problem: Resolved (4) Hypertensive chronic kidney disease Current Visit: Yes Status: Acute Plan to address problem: On HD Right perma cath Renal following Subjective Date of service: 12/25/16 Principal diagnosis: Sepsis; Pneumonia; ASHELY on dialysis; Diabetes Interval history: No acute overnight events. No fevers or chills. No chest pain or shortness of breath Seen and examined. Vitals, labs, medications, chart reviewed. 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 Heart: S1 and S2 regular, no murmurs or gallop Abdomen: Soft non-tender, non-distended, normal bowel sounds Extremity: No edema, clubbing or cyanosis Neuro : Awake, alert,oriented x 3, moves all extremities Vital Signs - 12hr 12/24/16 12/24/16 12/25/16 22:00 22:29 00:02 Temperature 97.7 F Pulse Rate 100 H Pulse Rate [ 100 H 89 Right Radial] Respiratory 18 18 Rate Blood Pressure 117/77 Blood Pressure 132/86 [Right Arm] O2 Sat by Pulse 95 100 Oximetry 12/25/16 12/25/16 12/25/16 04:44 07:00 08:38 Temperature 98.9 F 98.3 F Pulse Rate 100 H Pulse Rate [ 74 93 H Right Radial] Respiratory 20 20 20 Rate Blood Pressure Blood Pressure 121/68 137/80 [Right Arm] O2 Sat by Pulse 98 100 Oximetry Constitutional: no acute distress, asleep Eyes: non-icteric ENT: oropharynx moist Neck: supple, no lymphadenopathy Effort: normal Ascultation: Right: rhonchi, Bilateral: diminished breath sounds, rales (R>L lungs) Cardiovascular: regular rate and rhythm Gastrointestinal: normoactive bowel sounds, soft, non-tender, non-distended Integumentary: normal Extremities: no cyanosis, no edema, pulses normal, no ischemia or petechiae Neurologic: normal mental status, non-focal exam, pupils equal and round, motor strength normal and Psychiatric: mood appropriate, affect normal CBC and BMP: 12/23/16 06:42 12/25/16 16:42 ABG, PT/INR, D-dimer: ABG POC ABG pH 7.326 (7.35-7.45) L 12/09/16 12:02 POC ABG pCO2 37.7 (35-45) 12/09/16 12:02 POC ABG pO2 115 (80-105) H 12/09/16 12:02 POC ABG HCO3 19.7 12/09/16 12:02 POC ABG Total CO2 21 12/09/16 12:02 POC ABG O2 Sat 98 12/09/16 12:02 PT/INR, D-dimer PT 15.3 Sec. (12.2-14.9) H 12/08/16 19:00 INR 1.22 (0.87-1.13) H 12/08/16 19:00 D-Dimer 5507.36 ng/mlDDU (0-234) H 12/08/16 19:00 Abnormal lab findings: Abnormal Labs 12/04/16 12/04/16 12/04/16 01:19 01:36 02:21 WBC RBC Hgb Hct MCV MCHC RDW Plt Count Lymph % (Auto) Mckean % (Auto) Mckean # Baso # Seg Neutrophils % Seg Neuts % (Manual) Lymphocytes % (Manual) Monocytes % (Manual) Nucleated RBC % Seg Neutrophils # Seg Neutrophils # Man Lymphocytes # (Manual) Monocytes # (Manual) Percent Retic Haptoglobin PT INR Fibrinogen D-Dimer POC ABG pH 6.759 L POC ABG pCO2 POC ABG pO2 437 H Sodium Potassium Chloride Carbon Dioxide BUN Creatinine Glucose POC Glucose > 500 H Lactic Acid Calcium Phosphorus 15.70 H Magnesium 4.30 H Iron TIBC Transferrin Total Bilirubin Direct Bilirubin AST ALT Alkaline Phosphatase Lactate Dehydrogenase CK-MB (CK-2) Troponin T C-Reactive Protein Total Protein Albumin Triglycerides Cholesterol HDL Cholesterol Vitamin B12 Urine Creatinine Urine Total Protein Heparin-induced Plt Ab Hep Bs Antibody, Quant Crossmatch 12/04/16 12/04/16 12/04/16 03:55 04:00 05:11 WBC RBC Hgb Hct MCV MCHC RDW Plt Count Lymph % (Auto) [place]ke[place] % (Auto) Mckean # Baso # Seg Neutrophils % Seg Neuts % (Manual) Lymphocytes % (Manual) Monocytes % (Manual) Nucleated RBC % Seg Neutrophils # Seg Neutrophils # Man Lymphocytes # (Manual) Monocytes # (Manual) Percent Retic Haptoglobin PT INR Fibrinogen D-Dimer POC ABG pH POC ABG pCO2 POC ABG pO2 Sodium Potassium Chloride 91.4 L Carbon Dioxide 8 L* BUN 55 H Creatinine 2.8 H Glucose 1610 H* POC Glucose > 500 H > 500 H Lactic Acid Calcium Phosphorus Magnesium Iron TIBC Transferrin Total Bilirubin Direct Bilirubin AST ALT Alkaline Phosphatase Lactate Dehydrogenase CK-MB (CK-2) Troponin T C-Reactive Protein Total Protein Albumin Triglycerides Cholesterol HDL Cholesterol Vitamin B12 Urine Creatinine Urine Total Protein Heparin-induced Plt Ab Hep Bs Antibody, Quant Crossmatch 12/04/16 12/04/16 12/04/16 05:40 05:54 06:58 WBC RBC Hgb Hct MCV MCHC RDW Plt Count Lymph % (Auto) [place]ke[place] % (Auto) Mckean # Baso # Seg Neutrophils % Seg Neuts % (Manual) Lymphocytes % (Manual) Monocytes % (Manual) Nucleated RBC % Seg Neutrophils # Seg Neutrophils # Man Lymphocytes # (Manual) Monocytes # (Manual) Percent Retic Haptoglobin PT INR Fibrinogen D-Dimer POC ABG pH 7.154 L POC ABG pCO2 27.5 L POC ABG pO2 111 H Sodium Potassium Chloride Carbon Dioxide BUN Creatinine Glucose POC Glucose > 500 H > 500 H Lactic Acid Calcium Phosphorus Magnesium Iron TIBC Transferrin Total Bilirubin Direct Bilirubin AST ALT Alkaline Phosphatase Lactate Dehydrogenase CK-MB (CK-2) Troponin T C-Reactive Protein Total Protein Albumin Triglycerides Cholesterol HDL Cholesterol Vitamin B12 Urine Creatinine Urine Total Protein Heparin-induced Plt Ab Hep Bs Antibody, Quant Crossmatch 12/04/16 12/04/16 12/04/16 07:49 07:55 07:55 WBC RBC Hgb Hct MCV MCHC RDW Plt Count Lymph % (Auto) [place]kean % (Auto) Mckean # Baso # Seg Neutrophils % Seg Neuts % (Manual) Lymphocytes % (Manual) Monocytes % (Manual) Nucleated RBC % Seg Neutrophils # Seg Neutrophils # Man Lymphocytes # (Manual) Monocytes # (Manual) Percent Retic Haptoglobin PT INR Fibrinogen D-Dimer POC ABG pH POC ABG pCO2 POC ABG pO2 Sodium Potassium 3.3 L Chloride Carbon Dioxide 9 L* BUN 53 H Creatinine 2.9 H Glucose 1229 H* POC Glucose > 500 H Lactic Acid Calcium Phosphorus Magnesium Iron TIBC Transferrin Total Bilirubin Direct Bilirubin AST ALT Alkaline Phosphatase Lactate Dehydrogenase CK-MB (CK-2) Troponin T 0.111 H* D C-Reactive Protein Total Protein Albumin Triglycerides 570 H Cholesterol 221 H HDL Cholesterol 37 L Vitamin B12 Urine Creatinine Urine Total Protein Heparin-induced Plt Ab Hep Bs Antibody, Quant Crossmatch 12/04/16 12/04/16 12/04/16 07:55 09:55 09:55 WBC RBC 2.90 L Hgb 8.5 L Hct 30.2 L D MCV 105 H D MCHC 28 L RDW 19.2 H Plt Count Lymph % (Auto) [place]ke[place] % (Auto) Mckean # Baso # Seg Neutrophils % Seg Neuts % (Manual) Lymphocytes % (Manual) 11.0 L Monocytes % (Manual) Nucleated RBC % Seg Neutrophils # Seg Neutrophils # Man Lymphocytes # (Manual) 0.6 L Monocytes # (Manual) Percent Retic Haptoglobin PT INR Fibrinogen D-Dimer POC ABG pH POC ABG pCO2 POC ABG pO2 Sodium Potassium 3.1 L Chloride Carbon Dioxide 7 L* BUN 51 H Creatinine 3.2 H Glucose 969 H* POC Glucose Lactic Acid Calcium 10.4 H D Phosphorus Magnesium Iron TIBC Transferrin Total Bilirubin Direct Bilirubin AST ALT Alkaline Phosphatase Lactate Dehydrogenase CK-MB (CK-2) 4.6 H Troponin T 0.140 H* D C-Reactive Protein Total Protein Albumin Triglycerides Cholesterol HDL Cholesterol Vitamin B12 Urine Creatinine Urine Total Protein Heparin-induced Plt Ab Hep Bs Antibody, Quant Crossmatch 12/04/16 12/04/16 12/04/16 09:55 10:37 11:25 WBC RBC Hgb Hct MCV MCHC RDW Plt Count Lymph % (Auto) [place]ke[place] % (Auto) Mckean # Baso # Seg Neutrophils % Seg Neuts % (Manual) Lymphocytes % (Manual) Monocytes % (Manual) Nucleated RBC % Seg Neutrophils # Seg Neutrophils # Man Lymphocytes # (Manual) Monocytes # (Manual) Percent Retic Haptoglobin PT INR Fibrinogen D-Dimer POC ABG pH 7.215 L POC ABG pCO2 18.8 L POC ABG pO2 193 H Sodium Potassium Chloride Carbon Dioxide BUN Creatinine Glucose POC Glucose Lactic Acid Calcium Phosphorus Magnesium 3.70 H Iron TIBC Transferrin Total Bilirubin Direct Bilirubin AST ALT Alkaline Phosphatase Lactate Dehydrogenase CK-MB (CK-2) Troponin T C-Reactive Protein Total Protein Albumin Triglycerides Cholesterol HDL Cholesterol Vitamin B12 Urine Creatinine 29.5 H Urine Total Protein 33 H Heparin-induced Plt Ab Hep Bs Antibody, Quant Crossmatch 12/04/16 12/04/16 12/04/16 12:00 12:48 13:00 WBC RBC Hgb Hct MCV MCHC RDW Plt Count Lymph % (Auto) [place]ke[place] % (Auto) Mckean # Baso # Seg Neutrophils % Seg Neuts % (Manual) Lymphocytes % (Manual) Monocytes % (Manual) Nucleated RBC % Seg Neutrophils # Seg Neutrophils # Man Lymphocytes # (Manual) Monocytes # (Manual) Percent Retic Haptoglobin PT INR Fibrinogen D-Dimer POC ABG pH POC ABG pCO2 POC ABG pO2 Sodium 149 H 150 H Potassium 3.2 L 3.2 L Chloride 109.1 H Carbon Dioxide 8 L* 8 L* BUN 52 H 49 H Creatinine 3.4 H 3.1 H Glucose 723 H* 574 H* POC Glucose Lactic Acid 18.80 H* Calcium Phosphorus Magnesium Iron TIBC Transferrin Total Bilirubin Direct Bilirubin AST ALT Alkaline Phosphatase Lactate Dehydrogenase CK-MB (CK-2) Troponin T C-Reactive Protein Total Protein Albumin Triglycerides Cholesterol HDL Cholesterol Vitamin B12 Urine Creatinine Urine Total Protein Heparin-induced Plt Ab Hep Bs Antibody, Quant Crossmatch 12/04/16 12/04/16 12/04/16 13:01 14:41 16:06 WBC RBC Hgb Hct MCV MCHC RDW Plt Count Lymph % (Auto) [place]kean % (Auto) Mckean # Baso # Seg Neutrophils % Seg Neuts % (Manual) Lymphocytes % (Manual) Monocytes % (Manual) Nucleated RBC % Seg Neutrophils # Seg Neutrophils # Man Lymphocytes # (Manual) Monocytes # (Manual) Percent Retic Haptoglobin PT INR Fibrinogen D-Dimer POC ABG pH POC ABG pCO2 POC ABG pO2 Sodium 151 H Potassium 3.2 L Chloride 108.1 H Carbon Dioxide 10 L BUN 49 H Creatinine 3.0 H Glucose 383 H POC Glucose 292 H Lactic Acid Calcium Phosphorus Magnesium Iron TIBC Transferrin Total Bilirubin Direct Bilirubin AST ALT Alkaline Phosphatase Lactate Dehydrogenase CK-MB (CK-2) Troponin T C-Reactive Protein 3.50 H Total Protein Albumin Triglycerides Cholesterol HDL Cholesterol Vitamin B12 Urine Creatinine Urine Total Protein Heparin-induced Plt Ab Hep Bs Antibody, Quant Crossmatch 12/04/16 12/04/16 12/04/16 17:15 17:25 18:07 WBC RBC Hgb Hct MCV MCHC RDW Plt Count Lymph % (Auto) [place]ke[place] % (Auto) Mckean # Baso # Seg Neutrophils % Seg Neuts % (Manual) Lymphocytes % (Manual) Monocytes % (Manual) Nucleated RBC % Seg Neutrophils # Seg Neutrophils # Man Lymphocytes # (Manual) Monocytes # (Manual) Percent Retic Haptoglobin PT INR Fibrinogen D-Dimer POC ABG pH 7.255 L POC ABG pCO2 16.9 L POC ABG pO2 169 H Sodium Potassium Chloride Carbon Dioxide BUN Creatinine Glucose POC Glucose 246 H Lactic Acid 18.50 H* Calcium Phosphorus Magnesium Iron TIBC Transferrin Total Bilirubin Direct Bilirubin AST ALT Alkaline Phosphatase Lactate Dehydrogenase CK-MB (CK-2) Troponin T C-Reactive Protein Total Protein Albumin Triglycerides Cholesterol HDL Cholesterol Vitamin B12 Urine Creatinine Urine Total Protein Heparin-induced Plt Ab Hep Bs Antibody, Quant Crossmatch 12/04/16 12/04/16 12/04/16 19:34 20:31 21:15 WBC RBC Hgb Hct MCV MCHC RDW Plt Count Lymph % (Auto) [place]ke[place] % (Auto) Mckean # Baso # Seg Neutrophils % Seg Neuts % (Manual) Lymphocytes % (Manual) Monocytes % (Manual) Nucleated RBC % Seg Neutrophils # Seg Neutrophils # Man Lymphocytes # (Manual) Monocytes # (Manual) Percent Retic Haptoglobin PT INR Fibrinogen D-Dimer POC ABG pH POC ABG pCO2 POC ABG pO2 Sodium Potassium Chloride Carbon Dioxide BUN Creatinine Glucose POC Glucose 189 H 126 H 139 H Lactic Acid Calcium Phosphorus Magnesium Iron TIBC Transferrin Total Bilirubin Direct Bilirubin AST ALT Alkaline Phosphatase Lactate Dehydrogenase CK-MB (CK-2) Troponin T C-Reactive Protein Total Protein Albumin Triglycerides Cholesterol HDL Cholesterol Vitamin B12 Urine Creatinine Urine Total Protein Heparin-induced Plt Ab Hep Bs Antibody, Quant Crossmatch 12/04/16 12/04/16 12/04/16 21:25 22:37 23:35 WBC RBC Hgb Hct MCV MCHC RDW Plt Count Lymph % (Auto) Mckean % (Auto) Mckean # Baso # Seg Neutrophils % Seg Neuts % (Manual) Lymphocytes % (Manual) Monocytes % (Manual) Nucleated RBC % Seg Neutrophils # Seg Neutrophils # Man Lymphocytes # (Manual) Monocytes # (Manual) Percent Retic Haptoglobin PT INR Fibrinogen D-Dimer POC ABG pH 7.294 L POC ABG pCO2 16.7 L POC ABG pO2 169 H Sodium Potassium Chloride Carbon Dioxide BUN Creatinine Glucose POC Glucose 131 H 106 H Lactic Acid Calcium Phosphorus Magnesium Iron TIBC Transferrin Total Bilirubin Direct Bilirubin AST ALT Alkaline Phosphatase Lactate Dehydrogenase CK-MB (CK-2) Troponin T C-Reactive Protein Total Protein Albumin Triglycerides Cholesterol HDL Cholesterol Vitamin B12 Urine Creatinine Urine Total Protein Heparin-induced Plt Ab Hep Bs Antibody, Quant Crossmatch 12/05/16 12/05/16 12/05/16 02:40 02:50 02:50 WBC RBC Hgb Hct MCV MCHC RDW Plt Count Lymph % (Auto) [place]ke[place] % (Auto) Mckean # Baso # Seg Neutrophils % Seg Neuts % (Manual) Lymphocytes % (Manual) Monocytes % (Manual) Nucleated RBC % Seg Neutrophils # Seg Neutrophils # Man Lymphocytes # (Manual) Monocytes # (Manual) Percent Retic Haptoglobin PT INR Fibrinogen D-Dimer POC ABG pH POC ABG pCO2 POC ABG pO2 Sodium 151 H Potassium Chloride 113.8 H Carbon Dioxide 12 L BUN 46 H Creatinine 3.2 H Glucose 165 H POC Glucose 109 H Lactic Acid 9.80 H* Calcium 8.3 L Phosphorus Magnesium Iron TIBC Transferrin Total Bilirubin Direct Bilirubin AST ALT Alkaline Phosphatase Lactate Dehydrogenase CK-MB (CK-2) Troponin T C-Reactive Protein Total Protein Albumin Triglycerides Cholesterol HDL Cholesterol Vitamin B12 Urine Creatinine Urine Total Protein Heparin-induced Plt Ab Hep Bs Antibody, Quant Crossmatch 12/05/16 12/05/16 12/05/16 04:01 04:30 04:30 WBC 19.1 H RBC 2.91 L Hgb 8.0 L Hct 25.4 L MCV MCHC RDW 17.8 H Plt Count Lymph % (Auto) [place]ke[place] % (Auto) Mckean # Baso # Seg Neutrophils % Seg Neuts % (Manual) 17.0 L Lymphocytes % (Manual) 7.0 L Monocytes % (Manual) Nucleated RBC % 3.0 H Seg Neutrophils # Seg Neutrophils # Man Lymphocytes # (Manual) Monocytes # (Manual) Percent Retic Haptoglobin PT INR Fibrinogen D-Dimer POC ABG pH POC ABG pCO2 POC ABG pO2 Sodium 152 H Potassium Chloride 113.5 H Carbon Dioxide 12 L BUN 47 H Creatinine 3.2 H Glucose 133 H POC Glucose 179 H Lactic Acid Calcium 8.3 L Phosphorus 1.00 L D Magnesium Iron TIBC Transferrin Total Bilirubin Direct Bilirubin AST ALT Alkaline Phosphatase Lactate Dehydrogenase CK-MB (CK-2) Troponin T C-Reactive Protein Total Protein Albumin Triglycerides Cholesterol HDL Cholesterol Vitamin B12 Urine Creatinine Urine Total Protein Heparin-induced Plt Ab Hep Bs Antibody, Quant Crossmatch 12/05/16 12/05/16 12/05/16 05:32 08:01 08:48 WBC RBC Hgb Hct MCV MCHC RDW Plt Count Lymph % (Auto) [place]ke[place] % (Auto) [place]ke[place] # Baso # Seg Neutrophils % Seg Neuts % (Manual) Lymphocytes % (Manual) Monocytes % (Manual) Nucleated RBC % Seg Neutrophils # Seg Neutrophils # Man Lymphocytes # (Manual) Monocytes # (Manual) Percent Retic Haptoglobin PT INR Fibrinogen D-Dimer POC ABG pH POC ABG pCO2 17.6 L POC ABG pO2 62 L Sodium Potassium Chloride Carbon Dioxide BUN Creatinine Glucose POC Glucose 126 H 130 H Lactic Acid Calcium Phosphorus Magnesium Iron TIBC Transferrin Total Bilirubin Direct Bilirubin AST ALT Alkaline Phosphatase Lactate Dehydrogenase CK-MB (CK-2) Troponin T C-Reactive Protein Total Protein Albumin Triglycerides Cholesterol HDL Cholesterol Vitamin B12 Urine Creatinine Urine Total Protein Heparin-induced Plt Ab Hep Bs Antibody, Quant Crossmatch 12/05/16 12/05/16 12/05/16 08:54 12:01 15:15 WBC RBC Hgb Hct MCV MCHC RDW Plt Count Lymph % (Auto) [place]ke[place] % (Auto) Mckean # Baso # Seg Neutrophils % Seg Neuts % (Manual) Lymphocytes % (Manual) Monocytes % (Manual) Nucleated RBC % Seg Neutrophils # Seg Neutrophils # Man Lymphocytes # (Manual) Monocytes # (Manual) Percent Retic Haptoglobin PT INR Fibrinogen D-Dimer POC ABG pH POC ABG pCO2 POC ABG pO2 Sodium Potassium Chloride Carbon Dioxide BUN Creatinine Glucose POC Glucose 157 H 117 H 166 H Lactic Acid Calcium Phosphorus Magnesium Iron TIBC Transferrin Total Bilirubin Direct Bilirubin AST ALT Alkaline Phosphatase Lactate Dehydrogenase CK-MB (CK-2) Troponin T C-Reactive Protein Total Protein Albumin Triglycerides Cholesterol HDL Cholesterol Vitamin B12 Urine Creatinine Urine Total Protein Heparin-induced Plt Ab Hep Bs Antibody, Quant Crossmatch 12/05/16 12/05/16 12/05/16 16:10 16:55 17:08 WBC RBC Hgb Hct MCV MCHC RDW Plt Count Lymph % (Auto) [place]ke[place] % (Auto) Mckean # Baso # Seg Neutrophils % Seg Neuts % (Manual) Lymphocytes % (Manual) Monocytes % (Manual) Nucleated RBC % Seg Neutrophils # Seg Neutrophils # Man Lymphocytes # (Manual) Monocytes # (Manual) Percent Retic Haptoglobin PT INR Fibrinogen D-Dimer POC ABG pH POC ABG pCO2 POC ABG pO2 Sodium Potassium Chloride Carbon Dioxide BUN Creatinine Glucose POC Glucose 178 H 169 H Lactic Acid Calcium Phosphorus 5.00 H D Magnesium Iron TIBC Transferrin Total Bilirubin Direct Bilirubin AST ALT Alkaline Phosphatase Lactate Dehydrogenase CK-MB (CK-2) Troponin T C-Reactive Protein Total Protein Albumin Triglycerides Cholesterol HDL Cholesterol Vitamin B12 Urine Creatinine Urine Total Protein Heparin-induced Plt Ab Hep Bs Antibody, Quant Crossmatch 12/05/16 12/05/16 12/05/16 18:08 18:51 20:04 WBC RBC Hgb Hct MCV MCHC RDW Plt Count Lymph % (Auto) [place]ke[place] % (Auto) Mckean # Baso # Seg Neutrophils % Seg Neuts % (Manual) Lymphocytes % (Manual) Monocytes % (Manual) Nucleated RBC % Seg Neutrophils # Seg Neutrophils # Man Lymphocytes # (Manual) Monocytes # (Manual) Percent Retic Haptoglobin PT INR Fibrinogen D-Dimer POC ABG pH POC ABG pCO2 POC ABG pO2 Sodium Potassium Chloride Carbon Dioxide BUN Creatinine Glucose POC Glucose 147 H 113 H 64 L Lactic Acid Calcium Phosphorus Magnesium Iron TIBC Transferrin Total Bilirubin Direct Bilirubin AST ALT Alkaline Phosphatase Lactate Dehydrogenase CK-MB (CK-2) Troponin T C-Reactive Protein Total Protein Albumin Triglycerides Cholesterol HDL Cholesterol Vitamin B12 Urine Creatinine Urine Total Protein Heparin-induced Plt Ab Hep Bs Antibody, Quant Crossmatch 12/05/16 12/05/16 12/05/16 21:34 22:08 23:19 WBC RBC Hgb Hct MCV MCHC RDW Plt Count Lymph % (Auto) [place]ke[place] % (Auto) Mckean # Baso # Seg Neutrophils % Seg Neuts % (Manual) Lymphocytes % (Manual) Monocytes % (Manual) Nucleated RBC % Seg Neutrophils # Seg Neutrophils # Man Lymphocytes # (Manual) Monocytes # (Manual) Percent Retic Haptoglobin PT INR Fibrinogen D-Dimer POC ABG pH 7.303 L POC ABG pCO2 18.3 L POC ABG pO2 73 L Sodium Potassium Chloride Carbon Dioxide BUN Creatinine Glucose POC Glucose 141 H 200 H Lactic Acid Calcium Phosphorus Magnesium Iron TIBC Transferrin Total Bilirubin Direct Bilirubin AST ALT Alkaline Phosphatase Lactate Dehydrogenase CK-MB (CK-2) Troponin T C-Reactive Protein Total Protein Albumin Triglycerides Cholesterol HDL Cholesterol Vitamin B12 Urine Creatinine Urine Total Protein Heparin-induced Plt Ab Hep Bs Antibody, Quant Crossmatch 12/06/16 12/06/16 12/06/16 00:01 01:09 02:00 WBC RBC Hgb Hct MCV MCHC RDW Plt Count Lymph % (Auto) [place]ke[place] % (Auto) Mckean # Baso # Seg Neutrophils % Seg Neuts % (Manual) Lymphocytes % (Manual) Monocytes % (Manual) Nucleated RBC % Seg Neutrophils # Seg Neutrophils # Man Lymphocytes # (Manual) Monocytes # (Manual) Percent Retic Haptoglobin PT INR Fibrinogen D-Dimer POC ABG pH POC ABG pCO2 POC ABG pO2 Sodium Potassium Chloride Carbon Dioxide BUN Creatinine Glucose POC Glucose 211 H 116 H 57 L Lactic Acid Calcium Phosphorus Magnesium Iron TIBC Transferrin Total Bilirubin Direct Bilirubin AST ALT Alkaline Phosphatase Lactate Dehydrogenase CK-MB (CK-2) Troponin T C-Reactive Protein Total Protein Albumin Triglycerides Cholesterol HDL Cholesterol Vitamin B12 Urine Creatinine Urine Total Protein Heparin-induced Plt Ab Hep Bs Antibody, Quant Crossmatch 12/06/16 12/06/16 12/06/16 04:14 04:50 04:50 WBC RBC 2.68 L Hgb 7.6 L Hct 23.2 L MCV MCHC RDW 18.9 H Plt Count Lymph % (Auto) [place]ke[place] % (Auto) [place]ke[place] # Baso # Seg Neutrophils % Seg Neuts % (Manual) 32.0 L Lymphocytes % (Manual) Monocytes % (Manual) Nucleated RBC % 3.0 H Seg Neutrophils # Seg Neutrophils # Man Lymphocytes # (Manual) 0.9 L Monocytes # (Manual) Percent Retic Haptoglobin PT INR Fibrinogen D-Dimer POC ABG pH POC ABG pCO2 POC ABG pO2 Sodium Potassium 5.8 H D Chloride 111.5 H Carbon Dioxide 11 L BUN 52 H Creatinine 3.8 H Glucose 186 H POC Glucose 133 H Lactic Acid Calcium 6.5 L D Phosphorus 5.80 H Magnesium Iron TIBC Transferrin Total Bilirubin Direct Bilirubin AST ALT Alkaline Phosphatase Lactate Dehydrogenase CK-MB (CK-2) Troponin T C-Reactive Protein Total Protein Albumin Triglycerides Cholesterol HDL Cholesterol Vitamin B12 Urine Creatinine Urine Total Protein Heparin-induced Plt Ab Hep Bs Antibody, Quant Crossmatch 12/06/16 12/06/16 12/06/16 04:50 05:04 05:07 WBC RBC Hgb Hct MCV MCHC RDW Plt Count Lymph % (Auto) [place]ke[place] % (Auto) Mckean # Baso # Seg Neutrophils % Seg Neuts % (Manual) Lymphocytes % (Manual) Monocytes % (Manual) Nucleated RBC % Seg Neutrophils # Seg Neutrophils # Man Lymphocytes # (Manual) Monocytes # (Manual) Percent Retic Haptoglobin PT INR Fibrinogen D-Dimer POC ABG pH POC ABG pCO2 13.0 L POC ABG pO2 111 H Sodium Potassium Chloride Carbon Dioxide BUN Creatinine Glucose POC Glucose 127 H Lactic Acid 6.50 H* Calcium Phosphorus Magnesium Iron TIBC Transferrin Total Bilirubin Direct Bilirubin AST ALT Alkaline Phosphatase Lactate Dehydrogenase CK-MB (CK-2) Troponin T C-Reactive Protein Total Protein Albumin Triglycerides Cholesterol HDL Cholesterol Vitamin B12 Urine Creatinine Urine Total Protein Heparin-induced Plt Ab Hep Bs Antibody, Quant Crossmatch 12/06/16 12/06/16 12/06/16 06:10 06:54 07:46 WBC RBC Hgb Hct MCV MCHC RDW Plt Count Lymph % (Auto) [place]ke[place] % (Auto) Mckean # Baso # Seg Neutrophils % Seg Neuts % (Manual) Lymphocytes % (Manual) Monocytes % (Manual) Nucleated RBC % Seg Neutrophils # Seg Neutrophils # Man Lymphocytes # (Manual) Monocytes # (Manual) Percent Retic Haptoglobin PT INR Fibrinogen D-Dimer POC ABG pH POC ABG pCO2 POC ABG pO2 Sodium Potassium Chloride Carbon Dioxide BUN Creatinine Glucose POC Glucose 219 H 237 H 158 H Lactic Acid Calcium Phosphorus Magnesium Iron TIBC Transferrin Total Bilirubin Direct Bilirubin AST ALT Alkaline Phosphatase Lactate Dehydrogenase CK-MB (CK-2) Troponin T C-Reactive Protein Total Protein Albumin Triglycerides Cholesterol HDL Cholesterol Vitamin B12 Urine Creatinine Urine Total Protein Heparin-induced Plt Ab Hep Bs Antibody, Quant Crossmatch 12/06/16 12/06/16 12/06/16 08:55 10:27 11:58 WBC RBC Hgb Hct MCV MCHC RDW Plt Count Lymph % (Auto) [place]ke[place] % (Auto) Mckean # Baso # Seg Neutrophils % Seg Neuts % (Manual) Lymphocytes % (Manual) Monocytes % (Manual) Nucleated RBC % Seg Neutrophils # Seg Neutrophils # Man Lymphocytes # (Manual) Monocytes # (Manual) Percent Retic Haptoglobin PT INR Fibrinogen D-Dimer POC ABG pH POC ABG pCO2 POC ABG pO2 Sodium Potassium Chloride Carbon Dioxide BUN Creatinine Glucose POC Glucose 40 L 128 H 144 H Lactic Acid Calcium Phosphorus Magnesium Iron TIBC Transferrin Total Bilirubin Direct Bilirubin AST ALT Alkaline Phosphatase Lactate Dehydrogenase CK-MB (CK-2) Troponin T C-Reactive Protein Total Protein Albumin Triglycerides Cholesterol HDL Cholesterol Vitamin B12 Urine Creatinine Urine Total Protein Heparin-induced Plt Ab Hep Bs Antibody, Quant Crossmatch 12/06/16 12/06/16 12/06/16 18:14 19:00 19:06 WBC RBC Hgb Hct MCV MCHC RDW Plt Count Lymph % (Auto) Mckean % (Auto) Mckean # Baso # Seg Neutrophils % Seg Neuts % (Manual) Lymphocytes % (Manual) Monocytes % (Manual) Nucleated RBC % Seg Neutrophils # Seg Neutrophils # Man Lymphocytes # (Manual) Monocytes # (Manual) Percent Retic Haptoglobin PT INR Fibrinogen D-Dimer POC ABG pH POC ABG pCO2 POC ABG pO2 Sodium 149 H Potassium 5.6 H Chloride 115.9 H Carbon Dioxide 13 L BUN 56 H Creatinine 4.3 H Glucose 124 H POC Glucose 55 L 148 H Lactic Acid Calcium 6.0 L Phosphorus Magnesium Iron TIBC Transferrin Total Bilirubin Direct Bilirubin AST ALT Alkaline Phosphatase Lactate Dehydrogenase CK-MB (CK-2) Troponin T C-Reactive Protein Total Protein Albumin Triglycerides Cholesterol HDL Cholesterol Vitamin B12 Urine Creatinine Urine Total Protein Heparin-induced Plt Ab Hep Bs Antibody, Quant Crossmatch 12/06/16 12/06/16 12/07/16 21:24 21:51 02:32 WBC RBC Hgb Hct MCV MCHC RDW Plt Count Lymph % (Auto) [place] % (Auto) Mckean # Baso # Seg Neutrophils % Seg Neuts % (Manual) Lymphocytes % (Manual) Monocytes % (Manual) Nucleated RBC % Seg Neutrophils # Seg Neutrophils # Man Lymphocytes # (Manual) Monocytes # (Manual) Percent Retic Haptoglobin PT INR Fibrinogen D-Dimer POC ABG pH POC ABG pCO2 17.0 L POC ABG pO2 142 H Sodium Potassium Chloride Carbon Dioxide BUN Creatinine Glucose POC Glucose 107 H 175 H Lactic Acid Calcium Phosphorus Magnesium Iron TIBC Transferrin Total Bilirubin Direct Bilirubin AST ALT Alkaline Phosphatase Lactate Dehydrogenase CK-MB (CK-2) Troponin T C-Reactive Protein Total Protein Albumin Triglycerides Cholesterol HDL Cholesterol Vitamin B12 Urine Creatinine Urine Total Protein Heparin-induced Plt Ab Hep Bs Antibody, Quant Crossmatch 0712/07/16 12/07/16 05:01 05:25 06:00 WBC RBC 2.52 L Hgb 7.1 L Hct 22.1 L MCV MCHC RDW 19.3 H Plt Count 90 L Lymph % (Auto) [place] % (Auto) [place] # Baso # Seg Neutrophils % Seg Neuts % (Manual) 75.0 H Lymphocytes % (Manual) 11.0 L Monocytes % (Manual) Nucleated RBC % Seg Neutrophils # Seg Neutrophils # Man Lymphocytes # (Manual) 0.7 L Monocytes # (Manual) Percent Retic Haptoglobin PT INR Fibrinogen D-Dimer POC ABG pH 7.300 L POC ABG pCO2 17.1 L POC ABG pO2 140 H Sodium Potassium Chloride Carbon Dioxide BUN Creatinine Glucose POC Glucose 279 H Lactic Acid Calcium Phosphorus Magnesium Iron TIBC Transferrin Total Bilirubin Direct Bilirubin AST ALT Alkaline Phosphatase Lactate Dehydrogenase CK-MB (CK-2) Troponin T C-Reactive Protein Total Protein Albumin Triglycerides Cholesterol HDL Cholesterol Vitamin B12 Urine Creatinine Urine Total Protein Heparin-induced Plt Ab Hep Bs Antibody, Quant Crossmatch 12/07/16 12/07/16 12/07/16 06:00 06:00 07:30 WBC RBC Hgb Hct MCV MCHC RDW Plt Count Lymph % (Auto) [place] % (Auto) [place] # Baso # Seg Neutrophils % Seg Neuts % (Manual) Lymphocytes % (Manual) Monocytes % (Manual) Nucleated RBC % Seg Neutrophils # Seg Neutrophils # Man Lymphocytes # (Manual) Monocytes # (Manual) Percent Retic Haptoglobin PT INR Fibrinogen D-Dimer POC ABG pH POC ABG pCO2 POC ABG pO2 Sodium Potassium Chloride Carbon Dioxide BUN Creatinine Glucose POC Glucose Lactic Acid 6.90 H* Calcium Phosphorus 6.80 H Magnesium Iron TIBC Transferrin Total Bilirubin Direct Bilirubin AST ALT Alkaline Phosphatase Lactate Dehydrogenase CK-MB (CK-2) Troponin T C-Reactive Protein 39.40 H Total Protein Albumin Triglycerides Cholesterol HDL Cholesterol Vitamin B12 Urine Creatinine Urine Total Protein Heparin-induced Plt Ab Hep Bs Antibody, Quant Crossmatch 12/07/16 12/07/16 12/07/16 08:40 10:53 14:31 WBC RBC Hgb Hct MCV MCHC RDW Plt Count Lymph % (Auto) [place] % (Auto) [place] # Baso # Seg Neutrophils % Seg Neuts % (Manual) Lymphocytes % (Manual) Monocytes % (Manual) Nucleated RBC % Seg Neutrophils # Seg Neutrophils # Man Lymphocytes # (Manual) Monocytes # (Manual) Percent Retic Haptoglobin PT INR Fibrinogen D-Dimer POC ABG pH POC ABG pCO2 POC ABG pO2 Sodium Potassium 7.0 H* D Chloride 112.4 H Carbon Dioxide 8 L* BUN 61 H Creatinine 5.1 H Glucose 213 H POC Glucose 353 H 52 L Lactic Acid Calcium 5.8 L* Phosphorus Magnesium Iron TIBC Transferrin Total Bilirubin Direct Bilirubin AST ALT Alkaline Phosphatase Lactate Dehydrogenase CK-MB (CK-2) Troponin T C-Reactive Protein Total Protein Albumin Triglycerides Cholesterol HDL Cholesterol Vitamin B12 Urine Creatinine Urine Total Protein Heparin-induced Plt Ab Hep Bs Antibody, Quant Crossmatch 12/07/16 12/07/16 12/07/16 14:45 15:33 16:22 WBC RBC Hgb Hct MCV MCHC RDW Plt Count Lymph % (Auto) [place] % (Auto) [place] # Baso # Seg Neutrophils % Seg Neuts % (Manual) Lymphocytes % (Manual) Monocytes % (Manual) Nucleated RBC % Seg Neutrophils # Seg Neutrophils # Man Lymphocytes # (Manual) Monocytes # (Manual) Percent Retic Haptoglobin PT 17.5 H INR 1.44 H Fibrinogen D-Dimer POC ABG pH POC ABG pCO2 POC ABG pO2 Sodium Potassium Chloride Carbon Dioxide BUN Creatinine Glucose POC Glucose < 40 L 118 H Lactic Acid Calcium Phosphorus Magnesium Iron TIBC Transferrin Total Bilirubin Direct Bilirubin AST ALT Alkaline Phosphatase Lactate Dehydrogenase CK-MB (CK-2) Troponin T C-Reactive Protein Total Protein Albumin Triglycerides Cholesterol HDL Cholesterol Vitamin B12 Urine Creatinine Urine Total Protein Heparin-induced Plt Ab Hep Bs Antibody, Quant Crossmatch 12/07/16 12/07/16 12/07/16 21:35 21:35 21:58 WBC RBC Hgb Hct MCV MCHC RDW Plt Count Lymph % (Auto) [place] % (Auto) [place] # Baso # Seg Neutrophils % Seg Neuts % (Manual) Lymphocytes % (Manual) Monocytes % (Manual) Nucleated RBC % Seg Neutrophils # Seg Neutrophils # Man Lymphocytes # (Manual) Monocytes # (Manual) Percent Retic Haptoglobin PT INR Fibrinogen D-Dimer POC ABG pH POC ABG pCO2 POC ABG pO2 Sodium 150 H Potassium 3.3 L D Chloride 111.4 H Carbon Dioxide 21 L D BUN 22 H Creatinine 2.6 H Glucose 23 L* POC Glucose < 40 L Lactic Acid Calcium Phosphorus Magnesium Iron TIBC Transferrin Total Bilirubin 1.40 H Direct Bilirubin 0.9 H AST 94 H ALT 142 H Alkaline Phosphatase 249 H Lactate Dehydrogenase CK-MB (CK-2) Troponin T C-Reactive Protein Total Protein 4.6 L D Albumin 2.1 L Triglycerides Cholesterol HDL Cholesterol Vitamin B12 Urine Creatinine Urine Total Protein Heparin-induced Plt Ab Hep Bs Antibody, Quant Crossmatch 12/07/16 12/08/16 12/08/16 23:31 04:43 04:50 WBC RBC 2.35 L Hgb 6.6 L Hct 20.1 L MCV MCHC RDW 17.8 H Plt Count 48 L Lymph % (Auto) [place] % (Auto) [place] # Baso # Seg Neutrophils % Seg Neuts % (Manual) Lymphocytes % (Manual) Monocytes % (Manual) Nucleated RBC % Seg Neutrophils # Seg Neutrophils # Man Lymphocytes # (Manual) 0.9 L Monocytes # (Manual) Percent Retic Haptoglobin PT INR Fibrinogen D-Dimer POC ABG pH 7.586 H POC ABG pCO2 17.7 L POC ABG pO2 150 H Sodium Potassium Chloride Carbon Dioxide BUN Creatinine Glucose POC Glucose 42 L Lactic Acid Calcium Phosphorus Magnesium Iron TIBC Transferrin Total Bilirubin Direct Bilirubin AST ALT Alkaline Phosphatase Lactate Dehydrogenase CK-MB (CK-2) Troponin T C-Reactive Protein Total Protein Albumin Triglycerides Cholesterol HDL Cholesterol Vitamin B12 Urine Creatinine Urine Total Protein Heparin-induced Plt Ab Hep Bs Antibody, Quant Crossmatch 12/08/16 12/08/16 12/08/16 04:50 04:59 06:54 WBC RBC Hgb Hct MCV MCHC RDW Plt Count Lymph % (Auto) [place] % (Auto) [place] # Baso # Seg Neutrophils % Seg Neuts % (Manual) Lymphocytes % (Manual) Monocytes % (Manual) Nucleated RBC % Seg Neutrophils # Seg Neutrophils # Man Lymphocytes # (Manual) Monocytes # (Manual) Percent Retic Haptoglobin PT INR Fibrinogen D-Dimer POC ABG pH POC ABG pCO2 POC ABG pO2 Sodium 149 H Potassium 3.2 L Chloride 111.8 H Carbon Dioxide 17 L BUN 26 H Creatinine 3.4 H Glucose 163 H POC Glucose 204 H 203 H Lactic Acid Calcium 7.7 L Phosphorus 2.40 L D Magnesium Iron TIBC Transferrin Total Bilirubin Direct Bilirubin AST ALT Alkaline Phosphatase Lactate Dehydrogenase CK-MB (CK-2) Troponin T C-Reactive Protein Total Protein Albumin Triglycerides Cholesterol HDL Cholesterol Vitamin B12 Urine Creatinine Urine Total Protein Heparin-induced Plt Ab Hep Bs Antibody, Quant Crossmatch 12/08/16 12/08/16 12/08/16 08:04 08:46 08:46 WBC RBC Hgb Hct MCV MCHC RDW Plt Count Lymph % (Auto) [place] % (Auto) [place] # Baso # Seg Neutrophils % Seg Neuts % (Manual) Lymphocytes % (Manual) Monocytes % (Manual) Nucleated RBC % Seg Neutrophils # Seg Neutrophils # Man Lymphocytes # (Manual) Monocytes # (Manual) Percent Retic Haptoglobin PT INR Fibrinogen D-Dimer POC ABG pH POC ABG pCO2 POC ABG pO2 Sodium 147 H Potassium 2.9 L* Chloride 110.6 H Carbon Dioxide 17 L BUN 28 H Creatinine 3.6 H Glucose 127 H POC Glucose 205 H Lactic Acid Calcium 7.3 L Phosphorus Magnesium Iron TIBC Transferrin Total Bilirubin Direct Bilirubin AST ALT Alkaline Phosphatase Lactate Dehydrogenase CK-MB (CK-2) Troponin T C-Reactive Protein Total Protein Albumin Triglycerides Cholesterol HDL Cholesterol Vitamin B12 Urine Creatinine Urine Total Protein Heparin-induced Plt Ab Hep Bs Antibody, Quant Crossmatch See Detail 12/08/16 12/08/16 12/08/16 12:36 19:00 19:00 WBC RBC Hgb Hct MCV MCHC RDW Plt Count Lymph % (Auto) [place] % (Auto) [place] # Baso # Seg Neutrophils % Seg Neuts % (Manual) Lymphocytes % (Manual) Monocytes % (Manual) Nucleated RBC % Seg Neutrophils # Seg Neutrophils # Man Lymphocytes # (Manual) Monocytes # (Manual) Percent Retic Haptoglobin PT 15.3 H INR 1.22 H Fibrinogen 563 H D-Dimer 5507.36 H POC ABG pH POC ABG pCO2 POC ABG pO2 Sodium Potassium Chloride Carbon Dioxide 21 L BUN Creatinine 1.7 H D Glucose 155 H POC Glucose 181 H Lactic Acid Calcium Phosphorus Magnesium Iron TIBC Transferrin Total Bilirubin Direct Bilirubin AST ALT Alkaline Phosphatase Lactate Dehydrogenase CK-MB (CK-2) Troponin T C-Reactive Protein Total Protein Albumin Triglycerides Cholesterol HDL Cholesterol Vitamin B12 Urine Creatinine Urine Total Protein Heparin-induced Plt Ab Hep Bs Antibody, Quant Crossmatch 12/08/16 12/08/16 12/08/16 19:00 19:00 21:30 WBC RBC 2.76 L Hgb 7.8 L Hct 23.7 L MCV MCHC RDW 17.0 H Plt Count 38 L Lymph % (Auto) [place] % (Auto) [place] # Baso # Seg Neutrophils % Seg Neuts % (Manual) Lymphocytes % (Manual) Monocytes % (Manual) Nucleated RBC % Seg Neutrophils # Seg Neutrophils # Man Lymphocytes # (Manual) Monocytes # (Manual) Percent Retic Haptoglobin 271 H PT INR Fibrinogen D-Dimer POC ABG pH POC ABG pCO2 POC ABG pO2 Sodium Potassium Chloride Carbon Dioxide BUN Creatinine Glucose POC Glucose Lactic Acid Calcium Phosphorus Magnesium Iron TIBC Transferrin Total Bilirubin Direct Bilirubin AST ALT Alkaline Phosphatase Lactate Dehydrogenase 382 H CK-MB (CK-2) Troponin T C-Reactive Protein Total Protein Albumin Triglycerides Cholesterol HDL Cholesterol Vitamin B12 Urine Creatinine Urine Total Protein Heparin-induced Plt Ab Hep Bs Antibody, Quant Crossmatch 12/08/16 12/08/16 12/09/16 23:32 23:44 05:22 WBC RBC Hgb Hct MCV MCHC RDW Plt Count Lymph % (Auto) [place] % (Auto) [place] # Baso # Seg Neutrophils % Seg Neuts % (Manual) Lymphocytes % (Manual) Monocytes % (Manual) Nucleated RBC % Seg Neutrophils # Seg Neutrophils # Man Lymphocytes # (Manual) Monocytes # (Manual) Percent Retic Haptoglobin PT INR Fibrinogen D-Dimer POC ABG pH 7.498 H POC ABG pCO2 25.2 L POC ABG pO2 137 H Sodium Potassium Chloride Carbon Dioxide BUN Creatinine Glucose POC Glucose 311 H 113 H Lactic Acid Calcium Phosphorus Magnesium Iron TIBC Transferrin Total Bilirubin Direct Bilirubin AST ALT Alkaline Phosphatase Lactate Dehydrogenase CK-MB (CK-2) Troponin T C-Reactive Protein Total Protein Albumin Triglycerides Cholesterol HDL Cholesterol Vitamin B12 Urine Creatinine Urine Total Protein Heparin-induced Plt Ab Hep Bs Antibody, Quant Crossmatch 12/09/16 12/09/16 12/09/16 06:00 11:29 11:59 WBC RBC Hgb Hct MCV MCHC RDW Plt Count Lymph % (Auto) [place] % (Auto) [place] # Baso # Seg Neutrophils % Seg Neuts % (Manual) Lymphocytes % (Manual) Monocytes % (Manual) Nucleated RBC % Seg Neutrophils # Seg Neutrophils # Man Lymphocytes # (Manual) Monocytes # (Manual) Percent Retic 0.23 L Haptoglobin PT INR Fibrinogen D-Dimer POC ABG pH POC ABG pCO2 POC ABG pO2 Sodium Potassium Chloride 110.2 H Carbon Dioxide 18 L BUN 19 H Creatinine 2.5 H Glucose 105 H POC Glucose 254 H Lactic Acid Calcium Phosphorus 2.00 L Magnesium Iron TIBC Transferrin Total Bilirubin Direct Bilirubin AST ALT Alkaline Phosphatase Lactate Dehydrogenase CK-MB (CK-2) Troponin T C-Reactive Protein Total Protein Albumin Triglycerides Cholesterol HDL Cholesterol Vitamin B12 Urine Creatinine Urine Total Protein Heparin-induced Plt Ab Hep Bs Antibody, Quant Crossmatch 12/09/16 12/09/16 12/09/16 12:02 13:27 13:27 WBC RBC Hgb Hct MCV MCHC RDW Plt Count Lymph % (Auto) [place] % (Auto) [place] # Baso # Seg Neutrophils % Seg Neuts % (Manual) Lymphocytes % (Manual) Monocytes % (Manual) Nucleated RBC % Seg Neutrophils # Seg Neutrophils # Man Lymphocytes # (Manual) Monocytes # (Manual) Percent Retic Haptoglobin PT INR Fibrinogen D-Dimer POC ABG pH 7.326 L POC ABG pCO2 POC ABG pO2 115 H Sodium Potassium Chloride Carbon Dioxide BUN Creatinine Glucose POC Glucose Lactic Acid Calcium Phosphorus Magnesium Iron 15 L TIBC 134 L Transferrin Total Bilirubin Direct Bilirubin AST ALT Alkaline Phosphatase Lactate Dehydrogenase CK-MB (CK-2) Troponin T C-Reactive Protein Total Protein Albumin Triglycerides Cholesterol HDL Cholesterol Vitamin B12 > 2000 H Urine Creatinine Urine Total Protein Heparin-induced Plt Ab Hep Bs Antibody, Quant Crossmatch 12/09/16 12/09/16 12/09/16 13:27 13:27 16:28 WBC RBC Hgb Hct MCV MCHC RDW Plt Count Lymph % (Auto) [place] % (Auto) [place] # Baso # Seg Neutrophils % Seg Neuts % (Manual) Lymphocytes % (Manual) Monocytes % (Manual) Nucleated RBC % Seg Neutrophils # Seg Neutrophils # Man Lymphocytes # (Manual) Monocytes # (Manual) Percent Retic Haptoglobin PT INR Fibrinogen D-Dimer POC ABG pH POC ABG pCO2 POC ABG pO2 Sodium Potassium Chloride Carbon Dioxide BUN Creatinine Glucose POC Glucose 199 H Lactic Acid Calcium Phosphorus Magnesium Iron TIBC Transferrin Total Bilirubin Direct Bilirubin AST ALT Alkaline Phosphatase Lactate Dehydrogenase CK-MB (CK-2) Troponin T C-Reactive Protein Total Protein Albumin Triglycerides Cholesterol HDL Cholesterol Vitamin B12 Urine Creatinine Urine Total Protein Heparin-induced Plt Ab Weak positive H Hep Bs Antibody, Quant <5 L Crossmatch 12/09/16 12/09/16 12/10/16 23:27 Unknown 05:36 WBC 11.3 H RBC 2.92 L Hgb 8.4 L Hct 25.3 L MCV MCHC RDW 16.9 H Plt Count 31 L Lymph % (Auto) [place] % (Auto) [place] # Baso # Seg Neutrophils % Seg Neuts % (Manual) Lymphocytes % (Manual) Monocytes % (Manual) Nucleated RBC % Seg Neutrophils # Seg Neutrophils # Man Lymphocytes # (Manual) Monocytes # (Manual) Percent Retic Haptoglobin PT INR Fibrinogen D-Dimer POC ABG pH POC ABG pCO2 POC ABG pO2 Sodium Potassium Chloride Carbon Dioxide BUN Creatinine Glucose POC Glucose 247 H 248 H Lactic Acid Calcium Phosphorus Magnesium Iron TIBC Transferrin Total Bilirubin Direct Bilirubin AST ALT Alkaline Phosphatase Lactate Dehydrogenase CK-MB (CK-2) Troponin T C-Reactive Protein Total Protein Albumin Triglycerides Cholesterol HDL Cholesterol Vitamin B12 Urine Creatinine Urine Total Protein Heparin-induced Plt Ab Hep Bs Antibody, Quant Crossmatch 12/10/16 12/10/16 12/10/16 09:55 09:55 11:49 WBC 21.2 H RBC 3.37 L Hgb 9.6 L Hct 29.5 L MCV MCHC RDW 16.3 H Plt Count 102 L D Lymph % (Auto) [place] % (Auto) [place] # Baso # Seg Neutrophils % Seg Neuts % (Manual) Lymphocytes % (Manual) Monocytes % (Manual) Nucleated RBC % Seg Neutrophils # Seg Neutrophils # Man Lymphocytes # (Manual) Monocytes # (Manual) Percent Retic Haptoglobin PT INR Fibrinogen D-Dimer POC ABG pH POC ABG pCO2 POC ABG pO2 Sodium Potassium Chloride 107.4 H Carbon Dioxide 21 L BUN 37 H Creatinine 4.2 H D Glucose 174 H POC Glucose 265 H Lactic Acid Calcium Phosphorus Magnesium Iron TIBC Transferrin Total Bilirubin Direct Bilirubin AST ALT Alkaline Phosphatase Lactate Dehydrogenase CK-MB (CK-2) Troponin T C-Reactive Protein Total Protein Albumin Triglycerides Cholesterol HDL Cholesterol Vitamin B12 Urine Creatinine Urine Total Protein Heparin-induced Plt Ab Hep Bs Antibody, Quant Crossmatch 12/10/16 12/10/16 12/11/16 17:56 23:44 04:30 WBC 23.5 H RBC 3.46 L Hgb 9.7 L Hct 30.1 L MCV MCHC RDW 16.4 H Plt Count 115 L Lymph % (Auto) [place] % (Auto) [place] # Baso # Seg Neutrophils % Seg Neuts % (Manual) 84.0 H Lymphocytes % (Manual) 5.0 L Monocytes % (Manual) 10.0 H Nucleated RBC % 1.0 H Seg Neutrophils # Seg Neutrophils # Man 19.7 H Lymphocytes # (Manual) Monocytes # (Manual) 2.4 H Percent Retic Haptoglobin PT INR Fibrinogen D-Dimer POC ABG pH POC ABG pCO2 POC ABG pO2 Sodium Potassium Chloride Carbon Dioxide BUN Creatinine Glucose POC Glucose 118 H 378 H Lactic Acid Calcium Phosphorus Magnesium Iron TIBC Transferrin Total Bilirubin Direct Bilirubin AST ALT Alkaline Phosphatase Lactate Dehydrogenase CK-MB (CK-2) Troponin T C-Reactive Protein Total Protein Albumin Triglycerides Cholesterol HDL Cholesterol Vitamin B12 Urine Creatinine Urine Total Protein Heparin-induced Plt Ab Hep Bs Antibody, Quant Crossmatch 12/11/16 12/11/16 12/11/16 04:30 05:33 12:48 WBC RBC Hgb Hct MCV MCHC RDW Plt Count Lymph % (Auto) [place] % (Auto) [place] # Baso # Seg Neutrophils % Seg Neuts % (Manual) Lymphocytes % (Manual) Monocytes % (Manual) Nucleated RBC % Seg Neutrophils # Seg Neutrophils # Man Lymphocytes # (Manual) Monocytes # (Manual) Percent Retic Haptoglobin PT INR Fibrinogen D-Dimer POC ABG pH POC ABG pCO2 POC ABG pO2 Sodium Potassium Chloride Carbon Dioxide 21 L BUN 50 H Creatinine 4.8 H Glucose 303 H POC Glucose 335 H 325 H Lactic Acid Calcium 8.2 L Phosphorus Magnesium Iron TIBC Transferrin Total Bilirubin Direct Bilirubin AST ALT Alkaline Phosphatase Lactate Dehydrogenase CK-MB (CK-2) Troponin T C-Reactive Protein Total Protein Albumin Triglycerides Cholesterol HDL Cholesterol Vitamin B12 Urine Creatinine Urine Total Protein Heparin-induced Plt Ab Hep Bs Antibody, Quant Crossmatch 12/11/16 12/11/16 12/12/16 17:49 21:16 00:49 WBC RBC Hgb Hct MCV MCHC RDW Plt Count Lymph % (Auto) [place] % (Auto) [place] # Baso # Seg Neutrophils % Seg Neuts % (Manual) Lymphocytes % (Manual) Monocytes % (Manual) Nucleated RBC % Seg Neutrophils # Seg Neutrophils # Man Lymphocytes # (Manual) Monocytes # (Manual) Percent Retic Haptoglobin PT INR Fibrinogen D-Dimer POC ABG pH POC ABG pCO2 POC ABG pO2 Sodium Potassium Chloride Carbon Dioxide BUN Creatinine Glucose POC Glucose 368 H 162 H 225 H Lactic Acid Calcium Phosphorus Magnesium Iron TIBC Transferrin Total Bilirubin Direct Bilirubin AST ALT Alkaline Phosphatase Lactate Dehydrogenase CK-MB (CK-2) Troponin T C-Reactive Protein Total Protein Albumin Triglycerides Cholesterol HDL Cholesterol Vitamin B12 Urine Creatinine Urine Total Protein Heparin-induced Plt Ab Hep Bs Antibody, Quant Crossmatch 12/12/16 12/12/16 12/12/16 06:09 07:52 08:18 WBC 24.1 H RBC 3.16 L Hgb 9.0 L Hct 29.4 L MCV MCHC RDW 16.6 H Plt Count 96 L Lymph % (Auto) [place] % (Auto) [place] # Baso # Seg Neutrophils % Seg Neuts % (Manual) 75.0 H Lymphocytes % (Manual) Monocytes % (Manual) Nucleated RBC % Seg Neutrophils # Seg Neutrophils # Man 18.1 H Lymphocytes # (Manual) Monocytes # (Manual) 1.4 H Percent Retic Haptoglobin PT INR Fibrinogen D-Dimer POC ABG pH POC ABG pCO2 POC ABG pO2 Sodium Potassium Chloride Carbon Dioxide BUN Creatinine Glucose POC Glucose 428 H 418 H Lactic Acid Calcium Phosphorus Magnesium Iron TIBC Transferrin Total Bilirubin Direct Bilirubin AST ALT Alkaline Phosphatase Lactate Dehydrogenase CK-MB (CK-2) Troponin T C-Reactive Protein Total Protein Albumin Triglycerides Cholesterol HDL Cholesterol Vitamin B12 Urine Creatinine Urine Total Protein Heparin-induced Plt Ab Hep Bs Antibody, Quant Crossmatch 12/12/16 12/12/16 12/12/16 08:18 11:31 17:03 WBC RBC Hgb Hct MCV MCHC RDW Plt Count Lymph % (Auto) [place] % (Auto) [place] # Baso # Seg Neutrophils % Seg Neuts % (Manual) Lymphocytes % (Manual) Monocytes % (Manual) Nucleated RBC % Seg Neutrophils # Seg Neutrophils # Man Lymphocytes # (Manual) Monocytes # (Manual) Percent Retic Haptoglobin PT INR Fibrinogen D-Dimer POC ABG pH POC ABG pCO2 POC ABG pO2 Sodium Potassium Chloride Carbon Dioxide 12 L D BUN 41 H Creatinine 4.5 H Glucose 369 H POC Glucose 212 H 422 H Lactic Acid Calcium Phosphorus Magnesium Iron TIBC Transferrin Total Bilirubin Direct Bilirubin AST ALT Alkaline Phosphatase Lactate Dehydrogenase CK-MB (CK-2) Troponin T C-Reactive Protein Total Protein Albumin Triglycerides Cholesterol HDL Cholesterol Vitamin B12 Urine Creatinine Urine Total Protein Heparin-induced Plt Ab Hep Bs Antibody, Quant Crossmatch 12/12/16 12/13/16 12/13/16 21:35 07:49 07:49 WBC 24.0 H RBC 2.90 L Hgb 8.3 L Hct 25.8 L MCV MCHC RDW 15.5 H Plt Count 120 L Lymph % (Auto) [place] % (Auto) [place] # Baso # Seg Neutrophils % Seg Neuts % (Manual) 89.0 H Lymphocytes % (Manual) 7.0 L Monocytes % (Manual) Nucleated RBC % Seg Neutrophils # Seg Neutrophils # Man 21.4 H Lymphocytes # (Manual) Monocytes # (Manual) Percent Retic Haptoglobin PT INR Fibrinogen D-Dimer POC ABG pH POC ABG pCO2 POC ABG pO2 Sodium Potassium 3.2 L Chloride Carbon Dioxide BUN 21 H Creatinine 3.0 H Glucose 21 L* POC Glucose 185 H Lactic Acid Calcium Phosphorus Magnesium Iron TIBC Transferrin Total Bilirubin Direct Bilirubin AST ALT Alkaline Phosphatase Lactate Dehydrogenase CK-MB (CK-2) Troponin T C-Reactive Protein Total Protein Albumin Triglycerides Cholesterol HDL Cholesterol Vitamin B12 Urine Creatinine Urine Total Protein Heparin-induced Plt Ab Hep Bs Antibody, Quant Crossmatch 12/13/16 12/13/16 12/13/16 09:57 11:02 16:52 WBC RBC Hgb Hct MCV MCHC RDW Plt Count Lymph % (Auto) [place] % (Auto) [place] # Baso # Seg Neutrophils % Seg Neuts % (Manual) Lymphocytes % (Manual) Monocytes % (Manual) Nucleated RBC % Seg Neutrophils # Seg Neutrophils # Man Lymphocytes # (Manual) Monocytes # (Manual) Percent Retic Haptoglobin PT INR Fibrinogen D-Dimer POC ABG pH POC ABG pCO2 POC ABG pO2 Sodium Potassium Chloride Carbon Dioxide BUN Creatinine Glucose POC Glucose < 40 L 231 H 312 H Lactic Acid Calcium Phosphorus Magnesium Iron TIBC Transferrin Total Bilirubin Direct Bilirubin AST ALT Alkaline Phosphatase Lactate Dehydrogenase CK-MB (CK-2) Troponin T C-Reactive Protein Total Protein Albumin Triglycerides Cholesterol HDL Cholesterol Vitamin B12 Urine Creatinine Urine Total Protein Heparin-induced Plt Ab Hep Bs Antibody, Quant Crossmatch 12/13/16 12/14/16 12/14/16 21:32 07:07 07:07 WBC 16.7 H RBC 2.80 L Hgb 7.9 L Hct 24.7 L MCV MCHC RDW 15.4 H Plt Count 131 L Lymph % (Auto) 13.1 L [place] % (Auto) [place] # 1.2 H Baso # Seg Neutrophils % 78.3 H Seg Neuts % (Manual) Lymphocytes % (Manual) Monocytes % (Manual) Nucleated RBC % Seg Neutrophils # 13.1 H Seg Neutrophils # Man Lymphocytes # (Manual) Monocytes # (Manual) Percent Retic Haptoglobin PT INR Fibrinogen D-Dimer POC ABG pH POC ABG pCO2 POC ABG pO2 Sodium Potassium 3.5 L Chloride Carbon Dioxide BUN 30 H Creatinine 4.6 H D Glucose 181 H POC Glucose 275 H Lactic Acid Calcium 7.7 L Phosphorus Magnesium Iron TIBC Transferrin Total Bilirubin Direct Bilirubin AST ALT Alkaline Phosphatase Lactate Dehydrogenase CK-MB (CK-2) Troponin T C-Reactive Protein Total Protein Albumin Triglycerides Cholesterol HDL Cholesterol Vitamin B12 Urine Creatinine Urine Total Protein Heparin-induced Plt Ab Hep Bs Antibody, Quant Crossmatch 12/14/16 12/14/16 12/14/16 07:46 11:35 16:24 WBC RBC Hgb Hct MCV MCHC RDW Plt Count Lymph % (Auto) [place] % (Auto) [place] # Baso # Seg Neutrophils % Seg Neuts % (Manual) Lymphocytes % (Manual) Monocytes % (Manual) Nucleated RBC % Seg Neutrophils # Seg Neutrophils # Man Lymphocytes # (Manual) Monocytes # (Manual) Percent Retic Haptoglobin PT INR Fibrinogen D-Dimer POC ABG pH POC ABG pCO2 POC ABG pO2 Sodium Potassium Chloride Carbon Dioxide BUN Creatinine Glucose POC Glucose 189 H 254 H 466 H Lactic Acid Calcium Phosphorus Magnesium Iron TIBC Transferrin Total Bilirubin Direct Bilirubin AST ALT Alkaline Phosphatase Lactate Dehydrogenase CK-MB (CK-2) Troponin T C-Reactive Protein Total Protein Albumin Triglycerides Cholesterol HDL Cholesterol Vitamin B12 Urine Creatinine Urine Total Protein Heparin-induced Plt Ab Hep Bs Antibody, Quant Crossmatch 12/14/16 12/15/16 12/15/16 20:57 06:27 07:46 WBC RBC Hgb Hct MCV MCHC RDW Plt Count Lymph % (Auto) [place] % (Auto) [place] # Baso # Seg Neutrophils % Seg Neuts % (Manual) Lymphocytes % (Manual) Monocytes % (Manual) Nucleated RBC % Seg Neutrophils # Seg Neutrophils # Man Lymphocytes # (Manual) Monocytes # (Manual) Percent Retic Haptoglobin PT INR Fibrinogen D-Dimer POC ABG pH POC ABG pCO2 POC ABG pO2 Sodium Potassium Chloride Carbon Dioxide BUN Creatinine Glucose POC Glucose 301 H 183 H 231 H Lactic Acid Calcium Phosphorus Magnesium Iron TIBC Transferrin Total Bilirubin Direct Bilirubin AST ALT Alkaline Phosphatase Lactate Dehydrogenase CK-MB (CK-2) Troponin T C-Reactive Protein Total Protein Albumin Triglycerides Cholesterol HDL Cholesterol Vitamin B12 Urine Creatinine Urine Total Protein Heparin-induced Plt Ab Hep Bs Antibody, Quant Crossmatch 12/15/16 12/15/16 12/15/16 11:38 15:34 20:51 WBC RBC Hgb Hct MCV MCHC RDW Plt Count Lymph % (Auto) [place] % (Auto) Mckean # Baso # Seg Neutrophils % Seg Neuts % (Manual) Lymphocytes % (Manual) Monocytes % (Manual) Nucleated RBC % Seg Neutrophils # Seg Neutrophils # Man Lymphocytes # (Manual) Monocytes # (Manual) Percent Retic Haptoglobin PT INR Fibrinogen D-Dimer POC ABG pH POC ABG pCO2 POC ABG pO2 Sodium Potassium Chloride Carbon Dioxide BUN Creatinine Glucose POC Glucose 375 H 313 H 274 H Lactic Acid Calcium Phosphorus Magnesium Iron TIBC Transferrin Total Bilirubin Direct Bilirubin AST ALT Alkaline Phosphatase Lactate Dehydrogenase CK-MB (CK-2) Troponin T C-Reactive Protein Total Protein Albumin Triglycerides Cholesterol HDL Cholesterol Vitamin B12 Urine Creatinine Urine Total Protein Heparin-induced Plt Ab Hep Bs Antibody, Quant Crossmatch 12/16/16 12/16/16 12/16/16 08:26 09:12 17:13 WBC RBC Hgb Hct MCV MCHC RDW Plt Count Lymph % (Auto) [place] % (Auto) [place] # Baso # Seg Neutrophils % Seg Neuts % (Manual) Lymphocytes % (Manual) Monocytes % (Manual) Nucleated RBC % Seg Neutrophils # Seg Neutrophils # Man Lymphocytes # (Manual) Monocytes # (Manual) Percent Retic Haptoglobin PT INR Fibrinogen D-Dimer POC ABG pH POC ABG pCO2 POC ABG pO2 Sodium Potassium Chloride Carbon Dioxide BUN Creatinine Glucose POC Glucose 59 L 127 H > 500 H Lactic Acid Calcium Phosphorus Magnesium Iron TIBC Transferrin Total Bilirubin Direct Bilirubin AST ALT Alkaline Phosphatase Lactate Dehydrogenase CK-MB (CK-2) Troponin T C-Reactive Protein Total Protein Albumin Triglycerides Cholesterol HDL Cholesterol Vitamin B12 Urine Creatinine Urine Total Protein Heparin-induced Plt Ab Hep Bs Antibody, Quant Crossmatch 12/16/16 12/16/16 12/16/16 22:59 Unknown Unknown WBC 17.2 H RBC 2.83 L Hgb 7.9 L Hct 24.4 L MCV MCHC RDW Plt Count Lymph % (Auto) 9.2 L [place] % (Auto) Mckean # 0.9 H Baso # Seg Neutrophils % 84.1 H Seg Neuts % (Manual) Lymphocytes % (Manual) Monocytes % (Manual) Nucleated RBC % Seg Neutrophils # 14.5 H Seg Neutrophils # Man Lymphocytes # (Manual) Monocytes # (Manual) Percent Retic Haptoglobin PT INR Fibrinogen D-Dimer POC ABG pH POC ABG pCO2 POC ABG pO2 Sodium Potassium Chloride Carbon Dioxide BUN 43 H Creatinine 5.4 H Glucose 131 H POC Glucose 320 H Lactic Acid Calcium 6.9 L Phosphorus Magnesium Iron TIBC Transferrin Total Bilirubin Direct Bilirubin AST ALT Alkaline Phosphatase Lactate Dehydrogenase CK-MB (CK-2) Troponin T C-Reactive Protein Total Protein Albumin Triglycerides Cholesterol HDL Cholesterol Vitamin B12 Urine Creatinine Urine Total Protein Heparin-induced Plt Ab Hep Bs Antibody, Quant Crossmatch 12/17/16 12/17/16 12/17/16 08:26 08:56 09:52 WBC RBC Hgb Hct MCV MCHC RDW Plt Count Lymph % (Auto) [place] % (Auto) [place] # Baso # Seg Neutrophils % Seg Neuts % (Manual) Lymphocytes % (Manual) Monocytes % (Manual) Nucleated RBC % Seg Neutrophils # Seg Neutrophils # Man Lymphocytes # (Manual) Monocytes # (Manual) Percent Retic Haptoglobin PT INR Fibrinogen D-Dimer POC ABG pH POC ABG pCO2 POC ABG pO2 Sodium Potassium Chloride Carbon Dioxide BUN Creatinine Glucose POC Glucose < 40 L 40 L 133 H Lactic Acid Calcium Phosphorus Magnesium Iron TIBC Transferrin Total Bilirubin Direct Bilirubin AST ALT Alkaline Phosphatase Lactate Dehydrogenase CK-MB (CK-2) Troponin T C-Reactive Protein Total Protein Albumin Triglycerides Cholesterol HDL Cholesterol Vitamin B12 Urine Creatinine Urine Total Protein Heparin-induced Plt Ab Hep Bs Antibody, Quant Crossmatch 12/17/16 12/17/16 12/17/16 12:51 16:08 21:00 WBC RBC Hgb Hct MCV MCHC RDW Plt Count Lymph % (Auto) [place] % (Auto) [place] # Baso # Seg Neutrophils % Seg Neuts % (Manual) Lymphocytes % (Manual) Monocytes % (Manual) Nucleated RBC % Seg Neutrophils # Seg Neutrophils # Man Lymphocytes # (Manual) Monocytes # (Manual) Percent Retic Haptoglobin PT INR Fibrinogen D-Dimer POC ABG pH POC ABG pCO2 POC ABG pO2 Sodium Potassium Chloride Carbon Dioxide BUN Creatinine Glucose POC Glucose 177 H 303 H 489 H Lactic Acid Calcium Phosphorus Magnesium Iron TIBC Transferrin Total Bilirubin Direct Bilirubin AST ALT Alkaline Phosphatase Lactate Dehydrogenase CK-MB (CK-2) Troponin T C-Reactive Protein Total Protein Albumin Triglycerides Cholesterol HDL Cholesterol Vitamin B12 Urine Creatinine Urine Total Protein Heparin-induced Plt Ab Hep Bs Antibody, Quant Crossmatch 12/17/16 12/17/16 12/18/16 Unknown Unknown 05:50 WBC 16.6 H 15.6 H RBC 2.63 L 2.58 L Hgb 7.5 L 7.3 L Hct 23.3 L 23.0 L MCV MCHC RDW 15.3 H 15.9 H Plt Count Lymph % (Auto) 7.7 L 8.7 L [place] % (Auto) Mckean # 0.9 H Baso # Seg Neutrophils % 85.8 H 83.6 H Seg Neuts % (Manual) Lymphocytes % (Manual) Monocytes % (Manual) Nucleated RBC % Seg Neutrophils # 14.3 H 13.0 H Seg Neutrophils # Man Lymphocytes # (Manual) Monocytes # (Manual) Percent Retic Haptoglobin PT INR Fibrinogen D-Dimer POC ABG pH POC ABG pCO2 POC ABG pO2 Sodium Potassium 3.5 L Chloride Carbon Dioxide BUN 47 H Creatinine 5.2 H Glucose 173 H POC Glucose Lactic Acid Calcium 6.9 L Phosphorus Magnesium Iron TIBC Transferrin Total Bilirubin Direct Bilirubin AST ALT Alkaline Phosphatase Lactate Dehydrogenase CK-MB (CK-2) Troponin T C-Reactive Protein Total Protein Albumin Triglycerides Cholesterol HDL Cholesterol Vitamin B12 Urine Creatinine Urine Total Protein Heparin-induced Plt Ab Hep Bs Antibody, Quant Crossmatch 12/18/16 12/18/16 12/18/16 05:50 09:09 16:46 WBC RBC Hgb Hct MCV MCHC RDW Plt Count Lymph % (Auto) [place] % (Auto) [place] # Baso # Seg Neutrophils % Seg Neuts % (Manual) Lymphocytes % (Manual) Monocytes % (Manual) Nucleated RBC % Seg Neutrophils # Seg Neutrophils # Man Lymphocytes # (Manual) Monocytes # (Manual) Percent Retic Haptoglobin PT INR Fibrinogen D-Dimer POC ABG pH POC ABG pCO2 POC ABG pO2 Sodium Potassium Chloride Carbon Dioxide 17 L BUN 46 H Creatinine 5.0 H Glucose 252 H POC Glucose 349 H 324 H Lactic Acid Calcium 6.8 L Phosphorus Magnesium Iron TIBC Transferrin Total Bilirubin Direct Bilirubin AST ALT Alkaline Phosphatase Lactate Dehydrogenase CK-MB (CK-2) Troponin T C-Reactive Protein Total Protein Albumin Triglycerides Cholesterol HDL Cholesterol Vitamin B12 Urine Creatinine Urine Total Protein Heparin-induced Plt Ab Hep Bs Antibody, Quant Crossmatch 12/18/16 12/19/16 12/19/16 21:14 08:12 10:23 WBC 13.7 H RBC 2.60 L Hgb 7.5 L Hct 23.1 L MCV MCHC RDW 15.7 H Plt Count Lymph % (Auto) 9.1 L [place] % (Auto) [place] # 0.9 H Baso # Seg Neutrophils % 82.2 H Seg Neuts % (Manual) Lymphocytes % (Manual) Monocytes % (Manual) Nucleated RBC % Seg Neutrophils # 11.3 H Seg Neutrophils # Man Lymphocytes # (Manual) Monocytes # (Manual) Percent Retic Haptoglobin PT INR Fibrinogen D-Dimer POC ABG pH POC ABG pCO2 POC ABG pO2 Sodium Potassium Chloride Carbon Dioxide BUN Creatinine Glucose POC Glucose 316 H 464 H Lactic Acid Calcium Phosphorus Magnesium Iron TIBC Transferrin Total Bilirubin Direct Bilirubin AST ALT Alkaline Phosphatase Lactate Dehydrogenase CK-MB (CK-2) Troponin T C-Reactive Protein Total Protein Albumin Triglycerides Cholesterol HDL Cholesterol Vitamin B12 Urine Creatinine Urine Total Protein Heparin-induced Plt Ab Hep Bs Antibody, Quant Crossmatch 12/19/16 12/19/16 12/19/16 10:23 11:39 16:00 WBC RBC Hgb Hct MCV MCHC RDW Plt Count Lymph % (Auto) [place] % (Auto) [place] # Baso # Seg Neutrophils % Seg Neuts % (Manual) Lymphocytes % (Manual) Monocytes % (Manual) Nucleated RBC % Seg Neutrophils # Seg Neutrophils # Man Lymphocytes # (Manual) Monocytes # (Manual) Percent Retic Haptoglobin PT INR Fibrinogen D-Dimer POC ABG pH POC ABG pCO2 POC ABG pO2 Sodium Potassium 3.5 L Chloride Carbon Dioxide 14 L BUN 22 H Creatinine 3.2 H Glucose 446 H POC Glucose 344 H 467 H Lactic Acid Calcium 6.9 L Phosphorus 1.70 L D Magnesium Iron TIBC Transferrin Total Bilirubin Direct Bilirubin AST ALT Alkaline Phosphatase Lactate Dehydrogenase CK-MB (CK-2) Troponin T C-Reactive Protein Total Protein Albumin Triglycerides Cholesterol HDL Cholesterol Vitamin B12 Urine Creatinine Urine Total Protein Heparin-induced Plt Ab Hep Bs Antibody, Quant Crossmatch 12/19/16 12/19/16 12/19/16 16:35 16:35 21:16 WBC 19.3 H RBC 2.37 L Hgb 6.9 L Hct 21.8 L MCV MCHC RDW 16.7 H Plt Count Lymph % (Auto) [place] % (Auto) [place] # Baso # Seg Neutrophils % Seg Neuts % (Manual) Lymphocytes % (Manual) Monocytes % (Manual) Nucleated RBC % Seg Neutrophils # Seg Neutrophils # Man Lymphocytes # (Manual) Monocytes # (Manual) Percent Retic Haptoglobin PT INR Fibrinogen D-Dimer POC ABG pH POC ABG pCO2 POC ABG pO2 Sodium Potassium 3.4 L Chloride Carbon Dioxide 17 L BUN 23 H Creatinine 3.2 H Glucose 427 H POC Glucose 397 H Lactic Acid Calcium 6.9 L Phosphorus 2.40 L D Magnesium Iron TIBC Transferrin Total Bilirubin Direct Bilirubin AST ALT Alkaline Phosphatase Lactate Dehydrogenase CK-MB (CK-2) Troponin T C-Reactive Protein Total Protein Albumin Triglycerides Cholesterol HDL Cholesterol Vitamin B12 Urine Creatinine Urine Total Protein Heparin-induced Plt Ab Hep Bs Antibody, Quant Crossmatch 12/20/16 12/20/16 12/20/16 06:00 06:00 07:55 WBC 17.5 H RBC 2.54 L Hgb 7.3 L Hct 23.5 L MCV MCHC RDW 16.4 H Plt Count Lymph % (Auto) 9.0 L [place] % (Auto) [place] # 1.1 H Baso # Seg Neutrophils % 83.0 H Seg Neuts % (Manual) Lymphocytes % (Manual) Monocytes % (Manual) Nucleated RBC % Seg Neutrophils # 14.5 H Seg Neutrophils # Man Lymphocytes # (Manual) Monocytes # (Manual) Percent Retic Haptoglobin PT INR Fibrinogen D-Dimer POC ABG pH POC ABG pCO2 POC ABG pO2 Sodium 136 L Potassium Chloride 92.4 L Carbon Dioxide 15 L BUN Creatinine 2.6 H Glucose 475 H POC Glucose > 500 H Lactic Acid Calcium Phosphorus Magnesium Iron TIBC Transferrin Total Bilirubin Direct Bilirubin AST ALT Alkaline Phosphatase Lactate Dehydrogenase CK-MB (CK-2) Troponin T C-Reactive Protein Total Protein Albumin Triglycerides Cholesterol HDL Cholesterol Vitamin B12 Urine Creatinine Urine Total Protein Heparin-induced Plt Ab Hep Bs Antibody, Quant Crossmatch 12/20/16 12/20/16 12/20/16 11:21 16:01 22:33 WBC RBC Hgb Hct MCV MCHC RDW Plt Count Lymph % (Auto) [place] % (Auto) [place] # Baso # Seg Neutrophils % Seg Neuts % (Manual) Lymphocytes % (Manual) Monocytes % (Manual) Nucleated RBC % Seg Neutrophils # Seg Neutrophils # Man Lymphocytes # (Manual) Monocytes # (Manual) Percent Retic Haptoglobin PT INR Fibrinogen D-Dimer POC ABG pH POC ABG pCO2 POC ABG pO2 Sodium Potassium Chloride Carbon Dioxide BUN Creatinine Glucose POC Glucose > 500 H 446 H > 500 H Lactic Acid Calcium Phosphorus Magnesium Iron TIBC Transferrin Total Bilirubin Direct Bilirubin AST ALT Alkaline Phosphatase Lactate Dehydrogenase CK-MB (CK-2) Troponin T C-Reactive Protein Total Protein Albumin Triglycerides Cholesterol HDL Cholesterol Vitamin B12 Urine Creatinine Urine Total Protein Heparin-induced Plt Ab Hep Bs Antibody, Quant Crossmatch 12/20/16 12/20/16 12/21/16 22:37 23:00 00:48 WBC RBC Hgb Hct MCV MCHC RDW Plt Count Lymph % (Auto) [place] % (Auto) [place] # Baso # Seg Neutrophils % Seg Neuts % (Manual) Lymphocytes % (Manual) Monocytes % (Manual) Nucleated RBC % Seg Neutrophils # Seg Neutrophils # Man Lymphocytes # (Manual) Monocytes # (Manual) Percent Retic Haptoglobin PT INR Fibrinogen D-Dimer POC ABG pH POC ABG pCO2 POC ABG pO2 Sodium 128 L D Potassium Chloride 83.2 L Carbon Dioxide 11 L BUN 32 H Creatinine 3.5 H Glucose 822 H* POC Glucose > 500 H > 500 H Lactic Acid Calcium 8.2 L Phosphorus Magnesium Iron TIBC Transferrin Total Bilirubin Direct Bilirubin AST ALT Alkaline Phosphatase Lactate Dehydrogenase CK-MB (CK-2) Troponin T C-Reactive Protein Total Protein Albumin Triglycerides Cholesterol HDL Cholesterol Vitamin B12 Urine Creatinine Urine Total Protein Heparin-induced Plt Ab Hep Bs Antibody, Quant Crossmatch 12/21/16 12/21/16 12/21/16 03:17 05:00 05:00 WBC 15.7 H RBC 2.32 L Hgb 6.8 L Hct 20.6 L MCV MCHC RDW 16.3 H Plt Count Lymph % (Auto) 11.5 L [place] % (Auto) 7.4 H [place] # 1.2 H Baso # Seg Neutrophils % 78.7 H Seg Neuts % (Manual) Lymphocytes % (Manual) Monocytes % (Manual) Nucleated RBC % Seg Neutrophils # 12.4 H Seg Neutrophils # Man Lymphocytes # (Manual) Monocytes # (Manual) Percent Retic Haptoglobin PT INR Fibrinogen D-Dimer POC ABG pH POC ABG pCO2 POC ABG pO2 Sodium Potassium Chloride 95.3 L Carbon Dioxide 20 L D BUN 32 H Creatinine 3.7 H Glucose 243 H POC Glucose 428 H Lactic Acid Calcium 8.1 L Phosphorus Magnesium Iron TIBC 193.20 L Transferrin 138 L Total Bilirubin Direct Bilirubin AST ALT Alkaline Phosphatase Lactate Dehydrogenase CK-MB (CK-2) Troponin T C-Reactive Protein Total Protein Albumin Triglycerides Cholesterol HDL Cholesterol Vitamin B12 Urine Creatinine Urine Total Protein Heparin-induced Plt Ab Hep Bs Antibody, Quant Crossmatch 12/21/16 12/21/16 12/21/16 05:40 06:49 08:20 WBC RBC Hgb Hct MCV MCHC RDW Plt Count Lymph % (Auto) [place] % (Auto) [place] # Baso # Seg Neutrophils % Seg Neuts % (Manual) Lymphocytes % (Manual) Monocytes % (Manual) Nucleated RBC % Seg Neutrophils # Seg Neutrophils # Man Lymphocytes # (Manual) Monocytes # (Manual) Percent Retic Haptoglobin PT INR Fibrinogen D-Dimer POC ABG pH POC ABG pCO2 POC ABG pO2 Sodium Potassium Chloride Carbon Dioxide BUN Creatinine Glucose POC Glucose 271 H 236 H 222 H Lactic Acid Calcium Phosphorus Magnesium Iron TIBC Transferrin Total Bilirubin Direct Bilirubin AST ALT Alkaline Phosphatase Lactate Dehydrogenase CK-MB (CK-2) Troponin T C-Reactive Protein Total Protein Albumin Triglycerides Cholesterol HDL Cholesterol Vitamin B12 Urine Creatinine Urine Total Protein Heparin-induced Plt Ab Hep Bs Antibody, Quant Crossmatch 12/21/16 12/21/16 12/21/16 16:28 18:26 21:10 WBC RBC Hgb Hct MCV MCHC RDW Plt Count Lymph % (Auto) [place] % (Auto) [place] # Baso # Seg Neutrophils % Seg Neuts % (Manual) Lymphocytes % (Manual) Monocytes % (Manual) Nucleated RBC % Seg Neutrophils # Seg Neutrophils # Man Lymphocytes # (Manual) Monocytes # (Manual) Percent Retic Haptoglobin PT INR Fibrinogen D-Dimer POC ABG pH POC ABG pCO2 POC ABG pO2 Sodium Potassium Chloride Carbon Dioxide BUN Creatinine Glucose POC Glucose < 40 L 62 L 255 H Lactic Acid Calcium Phosphorus Magnesium Iron TIBC Transferrin Total Bilirubin Direct Bilirubin AST ALT Alkaline Phosphatase Lactate Dehydrogenase CK-MB (CK-2) Troponin T C-Reactive Protein Total Protein Albumin Triglycerides Cholesterol HDL Cholesterol Vitamin B12 Urine Creatinine Urine Total Protein Heparin-induced Plt Ab Hep Bs Antibody, Quant Crossmatch 12/22/16 12/22/16 12/22/16 03:38 06:45 06:45 WBC 17.4 H RBC 2.26 L Hgb 6.6 L Hct 20.5 L MCV MCHC RDW 15.7 H Plt Count Lymph % (Auto) 8.1 L [place] % (Auto) [place] # 0.9 H Baso # 0.2 H Seg Neutrophils % 84.3 H Seg Neuts % (Manual) Lymphocytes % (Manual) Monocytes % (Manual) Nucleated RBC % Seg Neutrophils # 14.6 H Seg Neutrophils # Man Lymphocytes # (Manual) Monocytes # (Manual) Percent Retic Haptoglobin PT INR Fibrinogen D-Dimer POC ABG pH POC ABG pCO2 POC ABG pO2 Sodium Potassium 3.3 L Chloride 95.5 L Carbon Dioxide 20 L BUN Creatinine 2.5 H Glucose 308 H POC Glucose 430 H Lactic Acid Calcium 8.2 L Phosphorus Magnesium Iron TIBC Transferrin Total Bilirubin Direct Bilirubin AST ALT Alkaline Phosphatase Lactate Dehydrogenase CK-MB (CK-2) Troponin T C-Reactive Protein Total Protein Albumin Triglycerides Cholesterol HDL Cholesterol Vitamin B12 Urine Creatinine Urine Total Protein Heparin-induced Plt Ab Hep Bs Antibody, Quant Crossmatch 12/22/16 12/22/16 12/22/16 08:31 12:50 15:46 WBC RBC Hgb Hct MCV MCHC RDW Plt Count Lymph % (Auto) [place] % (Auto) [place] # Baso # Seg Neutrophils % Seg Neuts % (Manual) Lymphocytes % (Manual) Monocytes % (Manual) Nucleated RBC % Seg Neutrophils # Seg Neutrophils # Man Lymphocytes # (Manual) Monocytes # (Manual) Percent Retic Haptoglobin PT INR Fibrinogen D-Dimer POC ABG pH POC ABG pCO2 POC ABG pO2 Sodium Potassium Chloride Carbon Dioxide BUN Creatinine Glucose POC Glucose 306 H 391 H Lactic Acid Calcium Phosphorus Magnesium Iron TIBC Transferrin Total Bilirubin Direct Bilirubin AST ALT Alkaline Phosphatase Lactate Dehydrogenase CK-MB (CK-2) Troponin T C-Reactive Protein Total Protein Albumin Triglycerides Cholesterol HDL Cholesterol Vitamin B12 Urine Creatinine Urine Total Protein Heparin-induced Plt Ab Hep Bs Antibody, Quant Crossmatch See Detail 12/22/16 12/22/16 12/23/16 17:13 21:45 06:42 WBC 17.9 H RBC 2.75 L Hgb 8.1 L Hct 24.8 L MCV MCHC RDW 17.1 H Plt Count Lymph % (Auto) [place] % (Auto) [place] # Baso # Seg Neutrophils % Seg Neuts % (Manual) Lymphocytes % (Manual) Monocytes % (Manual) Nucleated RBC % Seg Neutrophils # Seg Neutrophils # Man Lymphocytes # (Manual) Monocytes # (Manual) Percent Retic Haptoglobin PT INR Fibrinogen D-Dimer POC ABG pH POC ABG pCO2 POC ABG pO2 Sodium Potassium Chloride Carbon Dioxide BUN Creatinine Glucose POC Glucose > 500 H 449 H Lactic Acid Calcium Phosphorus Magnesium Iron TIBC Transferrin Total Bilirubin Direct Bilirubin AST ALT Alkaline Phosphatase Lactate Dehydrogenase CK-MB (CK-2) Troponin T C-Reactive Protein Total Protein Albumin Triglycerides Cholesterol HDL Cholesterol Vitamin B12 Urine Creatinine Urine Total Protein Heparin-induced Plt Ab Hep Bs Antibody, Quant Crossmatch 12/23/16 12/23/16 12/23/16 06:42 07:46 11:33 WBC RBC Hgb Hct MCV MCHC RDW Plt Count Lymph % (Auto) [place] % (Auto) [place] # Baso # Seg Neutrophils % Seg Neuts % (Manual) Lymphocytes % (Manual) Monocytes % (Manual) Nucleated RBC % Seg Neutrophils # Seg Neutrophils # Man Lymphocytes # (Manual) Monocytes # (Manual) Percent Retic Haptoglobin PT INR Fibrinogen D-Dimer POC ABG pH POC ABG pCO2 POC ABG pO2 Sodium Potassium 3.5 L Chloride 94.7 L Carbon Dioxide 19 L BUN 22 H Creatinine 2.9 H Glucose 401 H POC Glucose 449 H 298 H Lactic Acid Calcium 8.3 L Phosphorus Magnesium Iron TIBC Transferrin Total Bilirubin Direct Bilirubin AST ALT Alkaline Phosphatase Lactate Dehydrogenase CK-MB (CK-2) Troponin T C-Reactive Protein Total Protein Albumin Triglycerides Cholesterol HDL Cholesterol Vitamin B12 Urine Creatinine Urine Total Protein Heparin-induced Plt Ab Hep Bs Antibody, Quant Crossmatch 12/23/16 12/23/16 12/24/16 18:24 21:30 05:00 WBC RBC Hgb Hct MCV MCHC RDW Plt Count Lymph % (Auto) [place] % (Auto) [place] # Baso # Seg Neutrophils % Seg Neuts % (Manual) Lymphocytes % (Manual) Monocytes % (Manual) Nucleated RBC % Seg Neutrophils # Seg Neutrophils # Man Lymphocytes # (Manual) Monocytes # (Manual) Percent Retic Haptoglobin PT INR Fibrinogen D-Dimer POC ABG pH POC ABG pCO2 POC ABG pO2 Sodium Potassium 3.1 L Chloride 95.8 L Carbon Dioxide BUN Creatinine 1.8 H Glucose 106 H POC Glucose 177 H 455 H Lactic Acid Calcium Phosphorus Magnesium Iron TIBC Transferrin Total Bilirubin Direct Bilirubin AST ALT Alkaline Phosphatase Lactate Dehydrogenase CK-MB (CK-2) Troponin T C-Reactive Protein Total Protein Albumin Triglycerides Cholesterol HDL Cholesterol Vitamin B12 Urine Creatinine Urine Total Protein Heparin-induced Plt Ab Hep Bs Antibody, Quant Crossmatch 12/24/16 12/24/16 12/24/16 16:11 18:55 20:41 WBC RBC Hgb Hct MCV MCHC RDW Plt Count Lymph % (Auto) [place] % (Auto) [place] # Baso # Seg Neutrophils % Seg Neuts % (Manual) Lymphocytes % (Manual) Monocytes % (Manual) Nucleated RBC % Seg Neutrophils # Seg Neutrophils # Man Lymphocytes # (Manual) Monocytes # (Manual) Percent Retic Haptoglobin PT INR Fibrinogen D-Dimer POC ABG pH POC ABG pCO2 POC ABG pO2 Sodium Potassium Chloride Carbon Dioxide BUN Creatinine Glucose POC Glucose 175 H 148 H 44 L Lactic Acid Calcium Phosphorus Magnesium Iron TIBC Transferrin Total Bilirubin Direct Bilirubin AST ALT Alkaline Phosphatase Lactate Dehydrogenase CK-MB (CK-2) Troponin T C-Reactive Protein Total Protein Albumin Triglycerides Cholesterol HDL Cholesterol Vitamin B12 Urine Creatinine Urine Total Protein Heparin-induced Plt Ab Hep Bs Antibody, Quant Crossmatch 12/24/16 12/25/16 22:21 05:03 WBC RBC Hgb Hct MCV MCHC RDW Plt Count Lymph % (Auto) [place] % (Auto) [place] # Baso # Seg Neutrophils % Seg Neuts % (Manual) Lymphocytes % (Manual) Monocytes % (Manual) Nucleated RBC % Seg Neutrophils # Seg Neutrophils # Man Lymphocytes # (Manual) Monocytes # (Manual) Percent Retic Haptoglobin PT INR Fibrinogen D-Dimer POC ABG pH POC ABG pCO2 POC ABG pO2 Sodium Potassium 2.9 L* Chloride Carbon Dioxide BUN Creatinine 2.3 H Glucose 142 H POC Glucose 111 H Lactic Acid Calcium 8.0 L Phosphorus Magnesium Iron TIBC Transferrin Total Bilirubin Direct Bilirubin AST ALT Alkaline Phosphatase Lactate Dehydrogenase CK-MB (CK-2) Troponin T C-Reactive Protein Total Protein Albumin Triglycerides Cholesterol HDL Cholesterol Vitamin B12 Urine Creatinine Urine Total Protein Heparin-induced Plt Ab Hep Bs Antibody, Quant Crossmatch
--- NOTE | 2016-12-25 09:52 | Progress Note ---
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 Now on sliding scale insulin as per Primary team (2) Acute kidney failure with tubular necrosis Current Visit: No Status: Acute Plan to address problem: Hemodialysis currently on hold. Monitoring for renal recovering Serum creatinine 2.3 today 24 urine collection for creatinine clearance to be started today Hypokalemia- in repletion with KCl 40 mew po x1 Monitor I/O's Renally dose medications Obtain daily weights Renal diet (3) Hypertensive chronic kidney disease Current Visit: Yes Status: Acute Plan to address problem: Continue on anti-hypertensive agent. On Metoprolol. (4) Leukocytosis Current Visit: Yes Status: Acute Qualifiers: Leukocytosis type: L Plan to address problem: As per ID (5) Anemia Current Visit: Yes Status: Acute Qualifiers: Anemia type: A Iron deficiency anemia type: I Vitamin B12 deficiency anemia type: V Folate deficiency anemia type: F Bone marrow failure anemia type: B Hemolytic anemia type: H Other causes of anemia: O Chronic kidney disease stage: C Plan to address problem: On Epogen 20,000 units TIW Subjective Date of service: 12/25/16 Principal diagnosis: Sepsis; Pneumonia; ASHELY on dialysis; Diabetes Interval history: Patient seen lying in bed. States she does not want corona catheter placed. States she urinates well in commode. RN plans to start 24 hour urine collection today Objective - Vital Signs Vital signs: Vital Signs - 12hr 12/24/16 12/24/16 12/25/16 22:00 22:29 00:02 Temperature 97.7 F Pulse Rate 100 H Pulse Rate [ 100 H 89 Right Radial] Respiratory 18 18 Rate Blood Pressure 117/77 Blood Pressure 132/86 [Right Arm] O2 Sat by Pulse 95 100 Oximetry 12/25/16 12/25/16 12/25/16 04:44 07:00 08:38 Temperature 98.9 F 98.3 F Pulse Rate 100 H Pulse Rate [ 74 93 H Right Radial] Respiratory 20 20 20 Rate Blood Pressure Blood Pressure 121/68 137/80 [Right Arm] O2 Sat by Pulse 98 100 Oximetry - General Appearance General appearance: well-developed, appears stated age EENT: ATNC, PERRL, hearing intact, vision intact, other (Right IJ perm-catheter) Neck: no JVD, supple Respiratory: Present: Clear to Ascultation Cardiology: tachycardia, S1S2 Gastrointestinal: normoactive bowel sounds Integumentary: warm and dry Neurologic: alert and oriented x3 Musculoskeletal: other Psychiatric: mood/affect appropriate - Lab 12/23/16 06:42 12/25/16 05:03 Most recent lab results Calcium 8.0 mg/dL (8.4-10.2) L 12/25/16 05:03 Phosphorus 3.70 mg/dL (2.5-4.5) 12/21/16 05:00 Magnesium 1.90 mg/dL (1.7-2.3) 12/11/16 04:30 Urine Creatinine 29.5 mg/dL (0.1-20.0) H 12/04/16 11:25 Urine Sodium 26 mEq/L 12/04/16 11:25 Urine Total Protein 33 mg/dL (5-11.8) H 12/04/16 11:25
[2016-12-25] MEDS: LOVENOX SUB-Q SCH (10:00)
[2016-12-25] MEDS: PEPCID PO SCH (10:00)
[2016-12-25] MEDS: LOPRESSOR PO SCH ×2 (10:00→21:54)
--- NOTE | 2016-12-25 10:24 | Progress Note ---
Assessment and Plan Assessment and plan: Cardiac arrest with V. fib - Likely from hyperkalemia, currently patient is stable. Was treated with amiodarone - No recurrence Acute kidney injury secondary to ATN - Nephrology is following.She is going to continue hemodialysis. ASHELY improving. Cr 2.3. Will need outpatient hemodialysis arranged. Metabolic Acidosis, resolved. Acute hypoxic respiratory failure. Resolved. Now extubated DKA: - resolved - On sliding insulin Diabetes mellitus type 2. improving after starting Novolin 70/30 Acute metabolic encephalopathy, resolved Leukocytosis +GNR in trach aspirate, pseudomonas aeruginosa - Completed PO levaquin - ID is following -DVT prophylaxis: SCDs only due to recent SAH Thrombocytopenia - Resolved Acute on chronic anemia of chronic disease - Hemoglobin is 8.1 today after 2 Units PRBC yesterday Depression - Psych consulted and recommend O/P mental health follow up. Disposition - Patient needs O/P dialysis set up. History Interval history: No chest pain, No SOB Hospitalist Physical - Physical exam Narrative exam: Gen Appearance: No acute distress, morbidly obese HEENT: normocephalic, atraumatic Neck: supple, no JVD Lungs: Clear to auscultation bilaterally, no wheeze. Heart: S1 and S2 regular, no murmurs or gallop Abdomen: Soft non-tender, non-distended, normal bowel sounds Extremity: No edema, clubbing or cyanosis Neuro : Awake, alert,oriented x 3, moves all ext - Constitutional Vitals: Temp Pulse Resp BP Pulse Ox 98.3 F 93 H 20 137/80 100 12/25/16 07:00 12/25/16 07:00 12/25/16 08:38 12/25/16 07:00 12/25/16 07:00 General appearance: Present: no acute distress (resting comfortably) Results - Labs CBC & Chem 7: 12/23/16 06:42 12/25/16 05:03 Labs: Laboratory Last Values WBC 17.9 K/mm3 (4.5-11.0) H 12/23/16 06:42 RBC 2.75 M/mm3 (3.65-5.03) L 12/23/16 06:42 Hgb 8.1 gm/dl (10.1-14.3) L 12/23/16 06:42 Hct 24.8 % (30.3-42.9) L 12/23/16 06:42 MCV 90 fl (79-97) 12/23/16 06:42 MCH 29 pg (28-32) 12/23/16 06:42 MCHC 33 % (30-34) 12/23/16 06:42 RDW 17.1 % (13.2-15.2) H 12/23/16 06:42 Plt Count 241 K/mm3 (140-440) 12/23/16 06:42 Lymph % (Auto) 8.1 % (13.4-35.0) L 12/22/16 06:45 Davidson % (Auto) 5.3 % (0.0-7.3) 12/22/16 06:45 Eos % (Auto) 1.4 % (0.0-4.3) 12/22/16 06:45 Baso % (Auto) 0.9 % (0.0-1.8) 12/22/16 06:45 Lymph # 1.4 K/mm3 (1.2-5.4) 12/22/16 06:45 Davidson # 0.9 K/mm3 (0.0-0.8) H 12/22/16 06:45 Eos # 0.2 K/mm3 (0.0-0.4) 12/22/16 06:45 Baso # 0.2 K/mm3 (0.0-0.1) H 12/22/16 06:45 Add Manual Diff Complete 12/13/16 07:49 Total Counted 100 12/13/16 07:49 Seg Neutrophils % 84.3 % (40.0-70.0) H 12/22/16 06:45 Seg Neuts % (Manual) 89.0 % (40.0-70.0) H 12/13/16 07:49 Band Neutrophils % 1.0 % 12/13/16 07:49 Lymphocytes % (Manual) 7.0 % (13.4-35.0) L 12/13/16 07:49 Reactive Lymphs % (Man) 0 % 12/13/16 07:49 Monocytes % (Manual) 3.0 % (0.0-7.3) 12/13/16 07:49 Eosinophils % (Manual) 0 % (0.0-4.3) 12/13/16 07:49 Basophils % (Manual) 0 % (0.0-1.8) 12/13/16 07:49 Metamyelocytes % 0 % 12/13/16 07:49 Myelocytes % 0 % 12/13/16 07:49 Promyelocytes % 0 % 12/13/16 07:49 Blast Cells % 0 % 12/13/16 07:49 Nucleated RBC % Not Reportable 12/13/16 07:49 Seg Neutrophils # 14.6 K/mm3 (1.8-7.7) H 12/22/16 06:45 Seg Neutrophils # Man 21.4 K/mm3 (1.8-7.7) H 12/13/16 07:49 Band Neutrophils # 0.2 K/mm3 12/13/16 07:49 Lymphocytes # (Manual) 1.7 K/mm3 (1.2-5.4) 12/13/16 07:49 Abs React Lymphs (Man) 0.0 K/mm3 12/13/16 07:49 Monocytes # (Manual) 0.7 K/mm3 (0.0-0.8) 12/13/16 07:49 Eosinophils # (Manual) 0.0 K/mm3 (0.0-0.4) 12/13/16 07:49 Basophils # (Manual) 0.0 K/mm3 (0.0-0.1) 12/13/16 07:49 Metamyelocytes # 0.0 K/mm3 12/13/16 07:49 Myelocytes # 0.0 K/mm3 12/13/16 07:49 Promyelocytes # 0.0 K/mm3 12/13/16 07:49 Blast Cells # 0.0 K/mm3 12/13/16 07:49 WBC Morphology Not Reportable 12/13/16 07:49 Hypersegmented Neuts Not Reportable 12/13/16 07:49 Hyposegmented Neuts Not Reportable 12/13/16 07:49 Hypogranular Neuts Not Reportable 12/13/16 07:49 Smudge Cells Not Reportable 12/13/16 07:49 Toxic Granulation Not Reportable 12/13/16 07:49 Toxic Vacuolation Not Reportable 12/13/16 07:49 Dohle Bodies Not Reportable 12/13/16 07:49 Pelger-Huet Anomaly Not Reportable 12/13/16 07:49 Mary Rods Not Reportable 12/13/16 07:49 Platelet Estimate Cons 12/13/16 07:49 Clumped Platelets Not Reportable 12/13/16 07:49 Plt Clumps, EDTA Not Reportable 12/13/16 07:49 Large Platelets Rare 12/13/16 07:49 Giant Platelets Not Reportable 12/13/16 07:49 Platelet Satelliting Not Reportable 12/13/16 07:49 Plt Morphology Comment Not Reportable 12/13/16 07:49 RBC Morphology Not Reportable 12/13/16 07:49 Dimorphic RBCs Not Reportable 12/13/16 07:49 Polychromasia Not Reportable 12/13/16 07:49 Hypochromasia 1+ 12/13/16 07:49 Poikilocytosis Not Reportable 12/13/16 07:49 Anisocytosis 1+ 12/13/16 07:49 Microcytosis Not Reportable 12/13/16 07:49 Macrocytosis Not Reportable 12/13/16 07:49 Spherocytes Not Reportable 12/13/16 07:49 Pappenheimer Bodies Not Reportable 12/13/16 07:49 Sickle Cells Not Reportable 12/13/16 07:49 Target Cells Few 12/13/16 07:49 Tear Drop Cells Not Reportable 12/13/16 07:49 Ovalocytes Not Reportable 12/13/16 07:49 Helmet Cells Not Reportable 12/13/16 07:49 [place] Bodies Not Reportable 12/13/16 07:49 Cutler Rings Not Reportable 12/13/16 07:49 Jerri Cells Not Reportable 12/13/16 07:49 Bite Cells Not Reportable 12/13/16 07:49 Crenated Cell Not Reportable 12/13/16 07:49 Elliptocytes Not Reportable 12/13/16 07:49 Acanthocytes (Spur) Not Reportable 12/13/16 07:49 Rouleaux Not Reportable 12/13/16 07:49 Hemoglobin C Crystals Not Reportable 12/13/16 07:49 Schistocytes Not Reportable 12/13/16 07:49 Malaria parasites Not Reportable 12/13/16 07:49 Percent Retic 0.23 % (0.78-2.58) L 12/09/16 11:29 Michael Bodies Not Reportable 12/13/16 07:49 Haptoglobin 271 mg/dL (43-212) H 12/08/16 21:30 Hem Pathologist Commnt No 12/13/16 07:49 PT 15.3 Sec. (12.2-14.9) H 12/08/16 19:00 INR 1.22 (0.87-1.13) H 12/08/16 19:00 APTT 36.2 Sec. (24.2-36.6) 12/08/16 19:00 Fibrinogen 563 mg/dl (211-480) H 12/08/16 19:00 D-Dimer 5507.36 ng/mlDDU (0-234) H 12/08/16 19:00 Heparin Anti-Xa, Unfract Negative (Negative) 12/09/16 13:27 POC ABG pH 7.326 (7.35-7.45) L 12/09/16 12:02 POC ABG pCO2 37.7 (35-45) 12/09/16 12:02 POC ABG pO2 115 (80-105) H 12/09/16 12:02 POC ABG HCO3 19.7 12/09/16 12:02 POC ABG Total CO2 21 12/09/16 12:02 POC ABG O2 Sat 98 12/09/16 12:02 POC ABG Base Excess -6 12/09/16 12:02 FiO2 30 % 12/09/16 12:02 Sodium 137 mmol/L (137-145) 12/24/16 05:00 Potassium 2.9 mmol/L (3.6-5.0) L* 12/25/16 05:03 Chloride 95.8 mmol/L (98-107) L 12/24/16 05:00 Carbon Dioxide 26 mmol/L (22-30) 12/25/16 05:03 Anion Gap 18 mmol/L 12/24/16 05:00 BUN 12 mg/dL (7-17) 12/25/16 05:03 Creatinine 2.3 mg/dL (0.7-1.2) H 12/25/16 05:03 Estimated GFR 28 ml/min 12/25/16 05:03 BUN/Creatinine Ratio 5.21 % 12/25/16 05:03 Glucose 142 mg/dL (65-100) H 12/25/16 05:03 POC Glucose 111 (70-105) H 12/24/16 22:21 Lactic Acid 6.90 mmol/L (0.7-2.0) H* 12/07/16 07:30 Calcium 8.0 mg/dL (8.4-10.2) L 12/25/16 05:03 Phosphorus 3.70 mg/dL (2.5-4.5) 12/21/16 05:00 Magnesium 1.90 mg/dL (1.7-2.3) 12/11/16 04:30 Iron 66 ug/dL (37-170) 12/21/16 05:00 TIBC 193.20 mcg/dL (250-450) L 12/21/16 05:00 Transferrin 138 mg/dl (192-382) L 12/21/16 05:00 Ferritin 321.4 ng/mL (13.0-400.0) 12/21/16 05:00 Total Bilirubin 1.40 mg/dL (0.1-1.2) H 12/07/16 21:35 Direct Bilirubin 0.9 mg/dL (0-0.2) H 12/07/16 21:35 Indirect Bilirubin 0.5 mg/dL 12/07/16 21:35 AST 94 units/L (5-40) H 12/07/16 21:35 ALT 142 units/L (7-56) H 12/07/16 21:35 Alkaline Phosphatase 249 units/L (35-129) H 12/07/16 21:35 Lactate Dehydrogenase 382 units/L (91-180) H 12/08/16 19:00 Total Creatine Kinase 123 units/L (30-135) 12/04/16 09:55 CK-MB (CK-2) 4.6 ng/mL (0.0-4.0) H 12/04/16 09:55 CK-MB (CK-2) Rel Index 3.7 (0-4) 12/04/16 09:55 Troponin T 0.140 ng/mL (0.00-0.029) H* D 12/04/16 09:55 C-Reactive Protein 39.40 mg/dL (0.00-1.30) H 12/07/16 06:00 Total Protein 4.6 g/dL (6.3-8.2) L D 12/07/16 21:35 Albumin 2.1 g/dL (3.9-5) L 12/07/16 21:35 Albumin/Globulin Ratio 0.8 % 12/07/16 21:35 Triglycerides 570 mg/dL (2-149) H 12/04/16 07:55 Cholesterol 221 mg/dL (50-199) H 12/04/16 07:55 LDL Cholesterol Direct TNR 12/04/16 07:55 HDL Cholesterol 37 mg/dL (40-59) L 12/04/16 07:55 Cholesterol/HDL Ratio 5.97 % 12/04/16 07:55 Vitamin B12 > 2000 pg/mL (211-911) H 12/09/16 13:27 Folate 8.10 ng/mL (7.3-26.0) 12/09/16 13:27 TSH 1.600 mlU/mL (0.270-4.200) 12/03/16 23:20 Urine Color Yellow (Yellow) 12/04/16 11:25 Urine Turbidity Slightly-cloudy (Clear) 12/04/16 11:25 Urine pH 5.0 (5.0-7.0) 12/04/16 11:25 Ur Specific [place] 1.018 (1.003-1.030) 12/04/16 11:25 Urine Protein 30 mg/dl mg/dL (Negative) 12/04/16 11:25 Urine Glucose (UA) >=500 mg/dL (Negative) 12/04/16 11:25 Urine Ketones Tr mg/dL (Negative) 12/04/16 11:25 Urine Blood Sm (Negative) 12/04/16 11:25 Urine Nitrite Neg (Negative) 12/04/16 11:25 Urine Bilirubin Neg (Negative) 12/04/16 11:25 Urine Urobilinogen < 2.0 mg/dL (<2.0) 12/04/16 11:25 Ur Leukocyte Esterase Neg (Negative) 12/04/16 11:25 Urine WBC (Auto) 4.0 /HPF (0.0-6.0) 12/04/16 11:25 Urine RBC (Auto) 2.0 /HPF (0.0-6.0) 12/04/16 11:25 U Epithel Cells (Auto) < 1.0 /HPF (0-13.0) 12/04/16 11:25 Urine Mucus Few /HPF 12/04/16 11:25 Urine Osmolality 419 Mosm/kg 12/04/16 11:25 Urine Creatinine 29.5 mg/dL (0.1-20.0) H 12/04/16 11:25 Protein/Creatinin Ratio 1.12 12/04/16 11:25 Urine Sodium 26 mEq/L 12/04/16 11:25 Urine Total Protein 33 mg/dL (5-11.8) H 12/04/16 11:25 Urine Opiates Screen Presumptive negative 12/04/16 11:25 Urine Methadone Screen Presumptive negative 12/04/16 11:25 Ur Barbiturates Screen Presumptive negative 12/04/16 11:25 Ur Phencyclidine Scrn Presumptive negative 12/04/16 11:25 Ur Amphetamines Screen Presumptive negative 12/04/16 11:25 U Benzodiazepines Scrn Presumptive negative 12/04/16 11:25 Urine Cocaine Screen Presumptive negative 12/04/16 11:25 U Marijuana (THC) Screen Presumptive positive 12/04/16 11:25 Drugs of Abuse Note Disclamer 12/04/16 11:25 Heparin-induced Plt Ab Weak positive (Negative) H 12/09/16 13:27 UF Heparin High Dose 0 % Release 12/09/16 13:27 ADRIENNE UFH Low Dose 0.1 0 % Release 12/09/16 13:27 ADRIENNE UFH Low Dose 0.5 0 % Release 12/09/16 13:27 Hep Bs Antigen Non-reactive (Negative) 12/09/16 13:27 Hep Bs Antibody, Quant <5 mIU/mL (>=10) L 12/09/16 13:27 Hep B Core Total Ab Nonreactive (Nonreactive) 12/09/16 13:27 Hepatitis C Antibody Non-reactive (NonReactive) 12/09/16 13:27 HIV 1&2 Antibody Rapid Non react (Non React) 12/09/16 13:27 HIV P24 Antigen Non react (Non React) 12/09/16 13:27 Schistocytes Smear None seen 12/09/16 11:29 Blood Type O POSITIVE 12/22/16 15:46 Antibody Screen TNR 12/22/16 15:46 ISAIAH Antibody Screen Negative 12/22/16 15:46 Crossmatch See Detail 12/22/16 15:46
[2016-12-25] MEDS: BENADRYL PO PRN (18:03)
[2016-12-26] MEDS ORDERED: D50W (25GM) IV ONE ×4 (00:03→13:11)
[2016-12-26] MEDS: BENADRYL PO PRN ×2 (05:30→21:41)
[2016-12-26] MEDS: PERCOCET 5/325 PO PRN ×2 (05:31→21:41)
[2016-12-26] MEDS: NOVOLOG SUB-Q SCH ×4 (08:46→21:44)
--- NOTE | 2016-12-26 09:48 | Progress Note ---
Assessment and Plan - Patient Problems (1) Pulmonary infiltrate in right lung on chest x-ray Current Visit: Yes Status: Acute Plan to address problem: On antibiotics. Follow up CXR to monitor the new developing infiltrate on the RLL- probable aspiration. Bronchodilators Supplemental oxygen to keep O2 sats>94% Airway clearance techniques (2) DKA (diabetic ketoacidoses) Current Visit: Yes Status: Acute Qualifiers: Diabetes mellitus type: type 1 Diabetes mellitus complication detail: without coma Diabetes mellitus manager terminal insulin use: D Qualified Code(s): E10.10 - Type 1 diabetes mellitus with ketoacidosis without coma Plan to address problem: Sub-optimal diabetic control Need diabetic education. Continue with accucheck and glycemic control. Currently on insulin therapy. Primary service following (3) Metabolic encephalopathy Current Visit: Yes Status: Acute Plan to address problem: Resolved (4) Hypertensive chronic kidney disease Current Visit: Yes Status: Acute Plan to address problem: On HD Right perma cath Renal following Subjective Date of service: 12/26/16 Principal diagnosis: Sepsis; Pneumonia; ASHELY on dialysis; Diabetes Interval history: No acute overnight events. No fevers or chills. No chest pain or shortness of breath Seen and examined. Vitals, labs, medications, chart reviewed. Objective - Exam Narrative Exam: VITAL SIGNS: Reviewed. GENERAL: The patient appeared normally developed, cachetic. Vital signs as documented. HEAD: No signs of head trauma. temporal wasting noted EYES: Pupils are equal. Extraocular motions intact. EARS: Hearing grossly intact. MOUTH: Oropharynx is normal. NECK: No adenopathy, no JVD. CHEST: Chest with diminshed breath sounds bilaterally. No wheezes, rales, or rhonchi. (access Right Perm Catheter intact) CARDIAC: Regular rate and rhythm. S1 and S2, without murmurs, gallops, or rubs. VASCULAR: Trace Edema. Peripheral pulses normal and equal in all extremities. ABDOMEN: Soft, without detectable tenderness. No sign of distention. No rebound or guarding, and no masses palpated. Bowel Sounds normal. MUSCULOSKELETAL: Good range of motion of all major joints. Extremities without clubbing, cyanosis. Trace edema. NEUROLOGIC EXAM: Alert and oriented x 3. No focal sensory or strength deficits. Speech normal. Follows commands. PSYCHIATRIC: Mood normal. SKIN: No rash or lesions. Vital Signs - 12hr 12/25/16 12/25/1617 21:54 21:59 23:35 Temperature 98.2 F Pulse Rate 101 H Pulse Rate [ 102 H Right Radial] Respiratory 18 18 Rate Blood Pressure 121/77 Blood Pressure 138/85 [Right Arm] O2 Sat by Pulse 97 Oximetry 12/25/16 12/26/16 12/26/16 23:40 04:00 05:31 Temperature 98.1 F Pulse Rate 101 H Pulse Rate [ 101 H Right Radial] Respiratory 18 18 Rate Blood Pressure Blood Pressure 121/66 [Right Arm] O2 Sat by Pulse 98 Oximetry 12/26/16 07:30 Temperature 98.3 F Pulse Rate Pulse Rate [ 109 H Right Radial] Respiratory 20 Rate Blood Pressure Blood Pressure 133/86 [Right Arm] O2 Sat by Pulse 99 Oximetry Constitutional: no acute distress, asleep Eyes: non-icteric ENT: oropharynx moist Neck: supple, no lymphadenopathy Effort: normal Ascultation: Right: rhonchi, Bilateral: diminished breath sounds, rales (R>L lungs) Cardiovascular: regular rate and rhythm Gastrointestinal: normoactive bowel sounds, soft, non-tender, non-distended Integumentary: normal Extremities: no cyanosis, no edema, pulses normal, no ischemia or petechiae Neurologic: normal mental status, non-focal exam, pupils equal and round, motor strength normal and Psychiatric: mood appropriate, affect normal CBC and BMP: 12/26/16 Unknown 12/26/16 Unknown ABG, PT/INR, D-dimer: ABG POC ABG pH 7.326 (7.35-7.45) L 12/09/16 12:02 POC ABG pCO2 37.7 (35-45) 12/09/16 12:02 POC ABG pO2 115 (80-105) H 12/09/16 12:02 POC ABG HCO3 19.7 12/09/16 12:02 POC ABG Total CO2 21 12/09/16 12:02 POC ABG O2 Sat 98 12/09/16 12:02 PT/INR, D-dimer PT 15.3 Sec. (12.2-14.9) H 12/08/16 19:00 INR 1.22 (0.87-1.13) H 12/08/16 19:00 D-Dimer 5507.36 ng/mlDDU (0-234) H 12/08/16 19:00 Abnormal lab findings: Abnormal Labs 12/04/16 12/04/16 12/04/16 01:19 01:36 02:21 WBC RBC Hgb Hct MCV MCHC RDW Plt Count Lymph % (Auto) [place] % (Auto) [place] # Baso # Seg Neutrophils % Seg Neuts % (Manual) Lymphocytes % (Manual) Monocytes % (Manual) Nucleated RBC % Seg Neutrophils # Seg Neutrophils # Man Lymphocytes # (Manual) Monocytes # (Manual) Percent Retic Haptoglobin PT INR Fibrinogen D-Dimer POC ABG pH 6.759 L POC ABG pCO2 POC ABG pO2 437 H Sodium Potassium Chloride Carbon Dioxide BUN Creatinine Glucose POC Glucose > 500 H Lactic Acid Calcium Phosphorus 15.70 H Magnesium 4.30 H Iron TIBC Transferrin Total Bilirubin Direct Bilirubin AST ALT Alkaline Phosphatase Lactate Dehydrogenase CK-MB (CK-2) Troponin T C-Reactive Protein Total Protein Albumin Triglycerides Cholesterol HDL Cholesterol Vitamin B12 Urine Creatinine Urine Total Protein Heparin-induced Plt Ab Hep Bs Antibody, Quant Crossmatch 12/04/16 12/04/16 12/04/16 03:55 04:00 05:11 WBC RBC Hgb Hct MCV MCHC RDW Plt Count Lymph % (Auto) [place] % (Auto) [place] # Baso # Seg Neutrophils % Seg Neuts % (Manual) Lymphocytes % (Manual) Monocytes % (Manual) Nucleated RBC % Seg Neutrophils # Seg Neutrophils # Man Lymphocytes # (Manual) Monocytes # (Manual) Percent Retic Haptoglobin PT INR Fibrinogen D-Dimer POC ABG pH POC ABG pCO2 POC ABG pO2 Sodium Potassium Chloride 91.4 L Carbon Dioxide 8 L* BUN 55 H Creatinine 2.8 H Glucose 1610 H* POC Glucose > 500 H > 500 H Lactic Acid Calcium Phosphorus Magnesium Iron TIBC Transferrin Total Bilirubin Direct Bilirubin AST ALT Alkaline Phosphatase Lactate Dehydrogenase CK-MB (CK-2) Troponin T C-Reactive Protein Total Protein Albumin Triglycerides Cholesterol HDL Cholesterol Vitamin B12 Urine Creatinine Urine Total Protein Heparin-induced Plt Ab Hep Bs Antibody, Quant Crossmatch 12/04/16 12/04/16 12/04/16 05:40 05:54 06:58 WBC RBC Hgb Hct MCV MCHC RDW Plt Count Lymph % (Auto) [place] % (Auto) [place] # Baso # Seg Neutrophils % Seg Neuts % (Manual) Lymphocytes % (Manual) Monocytes % (Manual) Nucleated RBC % Seg Neutrophils # Seg Neutrophils # Man Lymphocytes # (Manual) Monocytes # (Manual) Percent Retic Haptoglobin PT INR Fibrinogen D-Dimer POC ABG pH 7.154 L POC ABG pCO2 27.5 L POC ABG pO2 111 H Sodium Potassium Chloride Carbon Dioxide BUN Creatinine Glucose POC Glucose > 500 H > 500 H Lactic Acid Calcium Phosphorus Magnesium Iron TIBC Transferrin Total Bilirubin Direct Bilirubin AST ALT Alkaline Phosphatase Lactate Dehydrogenase CK-MB (CK-2) Troponin T C-Reactive Protein Total Protein Albumin Triglycerides Cholesterol HDL Cholesterol Vitamin B12 Urine Creatinine Urine Total Protein Heparin-induced Plt Ab Hep Bs Antibody, Quant Crossmatch 12/04/16 12/04/16 12/04/16 07:49 07:55 07:55 WBC RBC Hgb Hct MCV MCHC RDW Plt Count Lymph % (Auto) [place] % (Auto) [place] # Baso # Seg Neutrophils % Seg Neuts % (Manual) Lymphocytes % (Manual) Monocytes % (Manual) Nucleated RBC % Seg Neutrophils # Seg Neutrophils # Man Lymphocytes # (Manual) Monocytes # (Manual) Percent Retic Haptoglobin PT INR Fibrinogen D-Dimer POC ABG pH POC ABG pCO2 POC ABG pO2 Sodium Potassium 3.3 L Chloride Carbon Dioxide 9 L* BUN 53 H Creatinine 2.9 H Glucose 1229 H* POC Glucose > 500 H Lactic Acid Calcium Phosphorus Magnesium Iron TIBC Transferrin Total Bilirubin Direct Bilirubin AST ALT Alkaline Phosphatase Lactate Dehydrogenase CK-MB (CK-2) Troponin T 0.111 H* D C-Reactive Protein Total Protein Albumin Triglycerides 570 H Cholesterol 221 H HDL Cholesterol 37 L Vitamin B12 Urine Creatinine Urine Total Protein Heparin-induced Plt Ab Hep Bs Antibody, Quant Crossmatch 12/04/16 12/04/16 12/04/16 07:55 09:55 09:55 WBC RBC 2.90 L Hgb 8.5 L Hct 30.2 L D MCV 105 H D MCHC 28 L RDW 19.2 H Plt Count Lymph % (Auto) [place] % (Auto) [place] # Baso # Seg Neutrophils % Seg Neuts % (Manual) Lymphocytes % (Manual) 11.0 L Monocytes % (Manual) Nucleated RBC % Seg Neutrophils # Seg Neutrophils # Man Lymphocytes # (Manual) 0.6 L Monocytes # (Manual) Percent Retic Haptoglobin PT INR Fibrinogen D-Dimer POC ABG pH POC ABG pCO2 POC ABG pO2 Sodium Potassium 3.1 L Chloride Carbon Dioxide 7 L* BUN 51 H Creatinine 3.2 H Glucose 969 H* POC Glucose Lactic Acid Calcium 10.4 H D Phosphorus Magnesium Iron TIBC Transferrin Total Bilirubin Direct Bilirubin AST ALT Alkaline Phosphatase Lactate Dehydrogenase CK-MB (CK-2) 4.6 H Troponin T 0.140 H* D C-Reactive Protein Total Protein Albumin Triglycerides Cholesterol HDL Cholesterol Vitamin B12 Urine Creatinine Urine Total Protein Heparin-induced Plt Ab Hep Bs Antibody, Quant Crossmatch 12/04/16 12/04/16 12/04/16 09:55 10:37 11:25 WBC RBC Hgb Hct MCV MCHC RDW Plt Count Lymph % (Auto) [place] % (Auto) [place] # Baso # Seg Neutrophils % Seg Neuts % (Manual) Lymphocytes % (Manual) Monocytes % (Manual) Nucleated RBC % Seg Neutrophils # Seg Neutrophils # Man Lymphocytes # (Manual) Monocytes # (Manual) Percent Retic Haptoglobin PT INR Fibrinogen D-Dimer POC ABG pH 7.215 L POC ABG pCO2 18.8 L POC ABG pO2 193 H Sodium Potassium Chloride Carbon Dioxide BUN Creatinine Glucose POC Glucose Lactic Acid Calcium Phosphorus Magnesium 3.70 H Iron TIBC Transferrin Total Bilirubin Direct Bilirubin AST ALT Alkaline Phosphatase Lactate Dehydrogenase CK-MB (CK-2) Troponin T C-Reactive Protein Total Protein Albumin Triglycerides Cholesterol HDL Cholesterol Vitamin B12 Urine Creatinine 29.5 H Urine Total Protein 33 H Heparin-induced Plt Ab Hep Bs Antibody, Quant Crossmatch 12/04/16 12/04/16 12/04/16 12:00 12:48 13:00 WBC RBC Hgb Hct MCV MCHC RDW Plt Count Lymph % (Auto) [place] % (Auto) [place] # Baso # Seg Neutrophils % Seg Neuts % (Manual) Lymphocytes % (Manual) Monocytes % (Manual) Nucleated RBC % Seg Neutrophils # Seg Neutrophils # Man Lymphocytes # (Manual) Monocytes # (Manual) Percent Retic Haptoglobin PT INR Fibrinogen D-Dimer POC ABG pH POC ABG pCO2 POC ABG pO2 Sodium 149 H 150 H Potassium 3.2 L 3.2 L Chloride 109.1 H Carbon Dioxide 8 L* 8 L* BUN 52 H 49 H Creatinine 3.4 H 3.1 H Glucose 723 H* 574 H* POC Glucose Lactic Acid 18.80 H* Calcium Phosphorus Magnesium Iron TIBC Transferrin Total Bilirubin Direct Bilirubin AST ALT Alkaline Phosphatase Lactate Dehydrogenase CK-MB (CK-2) Troponin T C-Reactive Protein Total Protein Albumin Triglycerides Cholesterol HDL Cholesterol Vitamin B12 Urine Creatinine Urine Total Protein Heparin-induced Plt Ab Hep Bs Antibody, Quant Crossmatch 12/04/16 12/04/16 12/04/16 13:01 14:41 16:06 WBC RBC Hgb Hct MCV MCHC RDW Plt Count Lymph % (Auto) [place] % (Auto) [place] # Baso # Seg Neutrophils % Seg Neuts % (Manual) Lymphocytes % (Manual) Monocytes % (Manual) Nucleated RBC % Seg Neutrophils # Seg Neutrophils # Man Lymphocytes # (Manual) Monocytes # (Manual) Percent Retic Haptoglobin PT INR Fibrinogen D-Dimer POC ABG pH POC ABG pCO2 POC ABG pO2 Sodium 151 H Potassium 3.2 L Chloride 108.1 H Carbon Dioxide 10 L BUN 49 H Creatinine 3.0 H Glucose 383 H POC Glucose 292 H Lactic Acid Calcium Phosphorus Magnesium Iron TIBC Transferrin Total Bilirubin Direct Bilirubin AST ALT Alkaline Phosphatase Lactate Dehydrogenase CK-MB (CK-2) Troponin T C-Reactive Protein 3.50 H Total Protein Albumin Triglycerides Cholesterol HDL Cholesterol Vitamin B12 Urine Creatinine Urine Total Protein Heparin-induced Plt Ab Hep Bs Antibody, Quant Crossmatch 12/04/16 12/04/16 12/04/16 17:15 17:25 18:07 WBC RBC Hgb Hct MCV MCHC RDW Plt Count Lymph % (Auto) [place] % (Auto) [place] # Baso # Seg Neutrophils % Seg Neuts % (Manual) Lymphocytes % (Manual) Monocytes % (Manual) Nucleated RBC % Seg Neutrophils # Seg Neutrophils # Man Lymphocytes # (Manual) Monocytes # (Manual) Percent Retic Haptoglobin PT INR Fibrinogen D-Dimer POC ABG pH 7.255 L POC ABG pCO2 16.9 L POC ABG pO2 169 H Sodium Potassium Chloride Carbon Dioxide BUN Creatinine Glucose POC Glucose 246 H Lactic Acid 18.50 H* Calcium Phosphorus Magnesium Iron TIBC Transferrin Total Bilirubin Direct Bilirubin AST ALT Alkaline Phosphatase Lactate Dehydrogenase CK-MB (CK-2) Troponin T C-Reactive Protein Total Protein Albumin Triglycerides Cholesterol HDL Cholesterol Vitamin B12 Urine Creatinine Urine Total Protein Heparin-induced Plt Ab Hep Bs Antibody, Quant Crossmatch 12/04/16 12/04/16 12/04/16 19:34 20:31 21:15 WBC RBC Hgb Hct MCV MCHC RDW Plt Count Lymph % (Auto) [place] % (Auto) [place] # Baso # Seg Neutrophils % Seg Neuts % (Manual) Lymphocytes % (Manual) Monocytes % (Manual) Nucleated RBC % Seg Neutrophils # Seg Neutrophils # Man Lymphocytes # (Manual) Monocytes # (Manual) Percent Retic Haptoglobin PT INR Fibrinogen D-Dimer POC ABG pH POC ABG pCO2 POC ABG pO2 Sodium Potassium Chloride Carbon Dioxide BUN Creatinine Glucose POC Glucose 189 H 126 H 139 H Lactic Acid Calcium Phosphorus Magnesium Iron TIBC Transferrin Total Bilirubin Direct Bilirubin AST ALT Alkaline Phosphatase Lactate Dehydrogenase CK-MB (CK-2) Troponin T C-Reactive Protein Total Protein Albumin Triglycerides Cholesterol HDL Cholesterol Vitamin B12 Urine Creatinine Urine Total Protein Heparin-induced Plt Ab Hep Bs Antibody, Quant Crossmatch 12/04/16 12/04/16 12/04/16 21:25 22:37 23:35 WBC RBC Hgb Hct MCV MCHC RDW Plt Count Lymph % (Auto) [place] % (Auto) [place] # Baso # Seg Neutrophils % Seg Neuts % (Manual) Lymphocytes % (Manual) Monocytes % (Manual) Nucleated RBC % Seg Neutrophils # Seg Neutrophils # Man Lymphocytes # (Manual) Monocytes # (Manual) Percent Retic Haptoglobin PT INR Fibrinogen D-Dimer POC ABG pH 7.294 L POC ABG pCO2 16.7 L POC ABG pO2 169 H Sodium Potassium Chloride Carbon Dioxide BUN Creatinine Glucose POC Glucose 131 H 106 H Lactic Acid Calcium Phosphorus Magnesium Iron TIBC Transferrin Total Bilirubin Direct Bilirubin AST ALT Alkaline Phosphatase Lactate Dehydrogenase CK-MB (CK-2) Troponin T C-Reactive Protein Total Protein Albumin Triglycerides Cholesterol HDL Cholesterol Vitamin B12 Urine Creatinine Urine Total Protein Heparin-induced Plt Ab Hep Bs Antibody, Quant Crossmatch 12/05/16 12/05/16 12/05/16 02:40 02:50 02:50 WBC RBC Hgb Hct MCV MCHC RDW Plt Count Lymph % (Auto) [place] % (Auto) [place] # Baso # Seg Neutrophils % Seg Neuts % (Manual) Lymphocytes % (Manual) Monocytes % (Manual) Nucleated RBC % Seg Neutrophils # Seg Neutrophils # Man Lymphocytes # (Manual) Monocytes # (Manual) Percent Retic Haptoglobin PT INR Fibrinogen D-Dimer POC ABG pH POC ABG pCO2 POC ABG pO2 Sodium 151 H Potassium Chloride 113.8 H Carbon Dioxide 12 L BUN 46 H Creatinine 3.2 H Glucose 165 H POC Glucose 109 H Lactic Acid 9.80 H* Calcium 8.3 L Phosphorus Magnesium Iron TIBC Transferrin Total Bilirubin Direct Bilirubin AST ALT Alkaline Phosphatase Lactate Dehydrogenase CK-MB (CK-2) Troponin T C-Reactive Protein Total Protein Albumin Triglycerides Cholesterol HDL Cholesterol Vitamin B12 Urine Creatinine Urine Total Protein Heparin-induced Plt Ab Hep Bs Antibody, Quant Crossmatch 12/05/16 12/05/16 12/05/16 04:01 04:30 04:30 WBC 19.1 H RBC 2.91 L Hgb 8.0 L Hct 25.4 L MCV MCHC RDW 17.8 H Plt Count Lymph % (Auto) [place] % (Auto) [place] # Baso # Seg Neutrophils % Seg Neuts % (Manual) 17.0 L Lymphocytes % (Manual) 7.0 L Monocytes % (Manual) Nucleated RBC % 3.0 H Seg Neutrophils # Seg Neutrophils # Man Lymphocytes # (Manual) Monocytes # (Manual) Percent Retic Haptoglobin PT INR Fibrinogen D-Dimer POC ABG pH POC ABG pCO2 POC ABG pO2 Sodium 152 H Potassium Chloride 113.5 H Carbon Dioxide 12 L BUN 47 H Creatinine 3.2 H Glucose 133 H POC Glucose 179 H Lactic Acid Calcium 8.3 L Phosphorus 1.00 L D Magnesium Iron TIBC Transferrin Total Bilirubin Direct Bilirubin AST ALT Alkaline Phosphatase Lactate Dehydrogenase CK-MB (CK-2) Troponin T C-Reactive Protein Total Protein Albumin Triglycerides Cholesterol HDL Cholesterol Vitamin B12 Urine Creatinine Urine Total Protein Heparin-induced Plt Ab Hep Bs Antibody, Quant Crossmatch 12/05/16 12/05/16 12/05/16 05:32 08:01 08:48 WBC RBC Hgb Hct MCV MCHC RDW Plt Count Lymph % (Auto) [place] % (Auto) [place] # Baso # Seg Neutrophils % Seg Neuts % (Manual) Lymphocytes % (Manual) Monocytes % (Manual) Nucleated RBC % Seg Neutrophils # Seg Neutrophils # Man Lymphocytes # (Manual) Monocytes # (Manual) Percent Retic Haptoglobin PT INR Fibrinogen D-Dimer POC ABG pH POC ABG pCO2 17.6 L POC ABG pO2 62 L Sodium Potassium Chloride Carbon Dioxide BUN Creatinine Glucose POC Glucose 126 H 130 H Lactic Acid Calcium Phosphorus Magnesium Iron TIBC Transferrin Total Bilirubin Direct Bilirubin AST ALT Alkaline Phosphatase Lactate Dehydrogenase CK-MB (CK-2) Troponin T C-Reactive Protein Total Protein Albumin Triglycerides Cholesterol HDL Cholesterol Vitamin B12 Urine Creatinine Urine Total Protein Heparin-induced Plt Ab Hep Bs Antibody, Quant Crossmatch 12/05/16 12/05/16 12/05/16 08:54 12:01 15:15 WBC RBC Hgb Hct MCV MCHC RDW Plt Count Lymph % (Auto) [place] % (Auto) [place] # Baso # Seg Neutrophils % Seg Neuts % (Manual) Lymphocytes % (Manual) Monocytes % (Manual) Nucleated RBC % Seg Neutrophils # Seg Neutrophils # Man Lymphocytes # (Manual) Monocytes # (Manual) Percent Retic Haptoglobin PT INR Fibrinogen D-Dimer POC ABG pH POC ABG pCO2 POC ABG pO2 Sodium Potassium Chloride Carbon Dioxide BUN Creatinine Glucose POC Glucose 157 H 117 H 166 H Lactic Acid Calcium Phosphorus Magnesium Iron TIBC Transferrin Total Bilirubin Direct Bilirubin AST ALT Alkaline Phosphatase Lactate Dehydrogenase CK-MB (CK-2) Troponin T C-Reactive Protein Total Protein Albumin Triglycerides Cholesterol HDL Cholesterol Vitamin B12 Urine Creatinine Urine Total Protein Heparin-induced Plt Ab Hep Bs Antibody, Quant Crossmatch 12/05/16 12/05/16 12/05/16 16:10 16:55 17:08 WBC RBC Hgb Hct MCV MCHC RDW Plt Count Lymph % (Auto) [place] % (Auto) [place] # Baso # Seg Neutrophils % Seg Neuts % (Manual) Lymphocytes % (Manual) Monocytes % (Manual) Nucleated RBC % Seg Neutrophils # Seg Neutrophils # Man Lymphocytes # (Manual) Monocytes # (Manual) Percent Retic Haptoglobin PT INR Fibrinogen D-Dimer POC ABG pH POC ABG pCO2 POC ABG pO2 Sodium Potassium Chloride Carbon Dioxide BUN Creatinine Glucose POC Glucose 178 H 169 H Lactic Acid Calcium Phosphorus 5.00 H D Magnesium Iron TIBC Transferrin Total Bilirubin Direct Bilirubin AST ALT Alkaline Phosphatase Lactate Dehydrogenase CK-MB (CK-2) Troponin T C-Reactive Protein Total Protein Albumin Triglycerides Cholesterol HDL Cholesterol Vitamin B12 Urine Creatinine Urine Total Protein Heparin-induced Plt Ab Hep Bs Antibody, Quant Crossmatch 12/05/16 12/05/16 12/05/16 18:08 18:51 20:04 WBC RBC Hgb Hct MCV MCHC RDW Plt Count Lymph % (Auto) [place] % (Auto) [place] # Baso # Seg Neutrophils % Seg Neuts % (Manual) Lymphocytes % (Manual) Monocytes % (Manual) Nucleated RBC % Seg Neutrophils # Seg Neutrophils # Man Lymphocytes # (Manual) Monocytes # (Manual) Percent Retic Haptoglobin PT INR Fibrinogen D-Dimer POC ABG pH POC ABG pCO2 POC ABG pO2 Sodium Potassium Chloride Carbon Dioxide BUN Creatinine Glucose POC Glucose 147 H 113 H 64 L Lactic Acid Calcium Phosphorus Magnesium Iron TIBC Transferrin Total Bilirubin Direct Bilirubin AST ALT Alkaline Phosphatase Lactate Dehydrogenase CK-MB (CK-2) Troponin T C-Reactive Protein Total Protein Albumin Triglycerides Cholesterol HDL Cholesterol Vitamin B12 Urine Creatinine Urine Total Protein Heparin-induced Plt Ab Hep Bs Antibody, Quant Crossmatch 12/05/16 12/05/16 12/05/16 21:34 22:08 23:19 WBC RBC Hgb Hct MCV MCHC RDW Plt Count Lymph % (Auto) [place] % (Auto) [place] # Baso # Seg Neutrophils % Seg Neuts % (Manual) Lymphocytes % (Manual) Monocytes % (Manual) Nucleated RBC % Seg Neutrophils # Seg Neutrophils # Man Lymphocytes # (Manual) Monocytes # (Manual) Percent Retic Haptoglobin PT INR Fibrinogen D-Dimer POC ABG pH 7.303 L POC ABG pCO2 18.3 L POC ABG pO2 73 L Sodium Potassium Chloride Carbon Dioxide BUN Creatinine Glucose POC Glucose 141 H 200 H Lactic Acid Calcium Phosphorus Magnesium Iron TIBC Transferrin Total Bilirubin Direct Bilirubin AST ALT Alkaline Phosphatase Lactate Dehydrogenase CK-MB (CK-2) Troponin T C-Reactive Protein Total Protein Albumin Triglycerides Cholesterol HDL Cholesterol Vitamin B12 Urine Creatinine Urine Total Protein Heparin-induced Plt Ab Hep Bs Antibody, Quant Crossmatch 12/06/16 12/06/16 12/06/16 00:01 01:09 02:00 WBC RBC Hgb Hct MCV MCHC RDW Plt Count Lymph % (Auto) [place] % (Auto) [place] # Baso # Seg Neutrophils % Seg Neuts % (Manual) Lymphocytes % (Manual) Monocytes % (Manual) Nucleated RBC % Seg Neutrophils # Seg Neutrophils # Man Lymphocytes # (Manual) Monocytes # (Manual) Percent Retic Haptoglobin PT INR Fibrinogen D-Dimer POC ABG pH POC ABG pCO2 POC ABG pO2 Sodium Potassium Chloride Carbon Dioxide BUN Creatinine Glucose POC Glucose 211 H 116 H 57 L Lactic Acid Calcium Phosphorus Magnesium Iron TIBC Transferrin Total Bilirubin Direct Bilirubin AST ALT Alkaline Phosphatase Lactate Dehydrogenase CK-MB (CK-2) Troponin T C-Reactive Protein Total Protein Albumin Triglycerides Cholesterol HDL Cholesterol Vitamin B12 Urine Creatinine Urine Total Protein Heparin-induced Plt Ab Hep Bs Antibody, Quant Crossmatch 12/06/16 12/06/16 12/06/16 04:14 04:50 04:50 WBC RBC 2.68 L Hgb 7.6 L Hct 23.2 L MCV MCHC RDW 18.9 H Plt Count Lymph % (Auto) [place] % (Auto) [place] # Baso # Seg Neutrophils % Seg Neuts % (Manual) 32.0 L Lymphocytes % (Manual) Monocytes % (Manual) Nucleated RBC % 3.0 H Seg Neutrophils # Seg Neutrophils # Man Lymphocytes # (Manual) 0.9 L Monocytes # (Manual) Percent Retic Haptoglobin PT INR Fibrinogen D-Dimer POC ABG pH POC ABG pCO2 POC ABG pO2 Sodium Potassium 5.8 H D Chloride 111.5 H Carbon Dioxide 11 L BUN 52 H Creatinine 3.8 H Glucose 186 H POC Glucose 133 H Lactic Acid Calcium 6.5 L D Phosphorus 5.80 H Magnesium Iron TIBC Transferrin Total Bilirubin Direct Bilirubin AST ALT Alkaline Phosphatase Lactate Dehydrogenase CK-MB (CK-2) Troponin T C-Reactive Protein Total Protein Albumin Triglycerides Cholesterol HDL Cholesterol Vitamin B12 Urine Creatinine Urine Total Protein Heparin-induced Plt Ab Hep Bs Antibody, Quant Crossmatch 12/06/16 12/06/16 12/06/16 04:50 05:04 05:07 WBC RBC Hgb Hct MCV MCHC RDW Plt Count Lymph % (Auto) [place] % (Auto) [place] # Baso # Seg Neutrophils % Seg Neuts % (Manual) Lymphocytes % (Manual) Monocytes % (Manual) Nucleated RBC % Seg Neutrophils # Seg Neutrophils # Man Lymphocytes # (Manual) Monocytes # (Manual) Percent Retic Haptoglobin PT INR Fibrinogen D-Dimer POC ABG pH POC ABG pCO2 13.0 L POC ABG pO2 111 H Sodium Potassium Chloride Carbon Dioxide BUN Creatinine Glucose POC Glucose 127 H Lactic Acid 6.50 H* Calcium Phosphorus Magnesium Iron TIBC Transferrin Total Bilirubin Direct Bilirubin AST ALT Alkaline Phosphatase Lactate Dehydrogenase CK-MB (CK-2) Troponin T C-Reactive Protein Total Protein Albumin Triglycerides Cholesterol HDL Cholesterol Vitamin B12 Urine Creatinine Urine Total Protein Heparin-induced Plt Ab Hep Bs Antibody, Quant Crossmatch 12/06/16 12/06/16 12/06/16 06:10 06:54 07:46 WBC RBC Hgb Hct MCV MCHC RDW Plt Count Lymph % (Auto) [place] % (Auto) [place] # Baso # Seg Neutrophils % Seg Neuts % (Manual) Lymphocytes % (Manual) Monocytes % (Manual) Nucleated RBC % Seg Neutrophils # Seg Neutrophils # Man Lymphocytes # (Manual) Monocytes # (Manual) Percent Retic Haptoglobin PT INR Fibrinogen D-Dimer POC ABG pH POC ABG pCO2 POC ABG pO2 Sodium Potassium Chloride Carbon Dioxide BUN Creatinine Glucose POC Glucose 219 H 237 H 158 H Lactic Acid Calcium Phosphorus Magnesium Iron TIBC Transferrin Total Bilirubin Direct Bilirubin AST ALT Alkaline Phosphatase Lactate Dehydrogenase CK-MB (CK-2) Troponin T C-Reactive Protein Total Protein Albumin Triglycerides Cholesterol HDL Cholesterol Vitamin B12 Urine Creatinine Urine Total Protein Heparin-induced Plt Ab Hep Bs Antibody, Quant Crossmatch 12/06/16 12/06/16 12/06/16 08:55 10:27 11:58 WBC RBC Hgb Hct MCV MCHC RDW Plt Count Lymph % (Auto) [place] % (Auto) [place] # Baso # Seg Neutrophils % Seg Neuts % (Manual) Lymphocytes % (Manual) Monocytes % (Manual) Nucleated RBC % Seg Neutrophils # Seg Neutrophils # Man Lymphocytes # (Manual) Monocytes # (Manual) Percent Retic Haptoglobin PT INR Fibrinogen D-Dimer POC ABG pH POC ABG pCO2 POC ABG pO2 Sodium Potassium Chloride Carbon Dioxide BUN Creatinine Glucose POC Glucose 40 L 128 H 144 H Lactic Acid Calcium Phosphorus Magnesium Iron TIBC Transferrin Total Bilirubin Direct Bilirubin AST ALT Alkaline Phosphatase Lactate Dehydrogenase CK-MB (CK-2) Troponin T C-Reactive Protein Total Protein Albumin Triglycerides Cholesterol HDL Cholesterol Vitamin B12 Urine Creatinine Urine Total Protein Heparin-induced Plt Ab Hep Bs Antibody, Quant Crossmatch 12/06/16 12/06/16 12/06/16 18:14 19:00 19:06 WBC RBC Hgb Hct MCV MCHC RDW Plt Count Lymph % (Auto) [place] % (Auto) [place] # Baso # Seg Neutrophils % Seg Neuts % (Manual) Lymphocytes % (Manual) Monocytes % (Manual) Nucleated RBC % Seg Neutrophils # Seg Neutrophils # Man Lymphocytes # (Manual) Monocytes # (Manual) Percent Retic Haptoglobin PT INR Fibrinogen D-Dimer POC ABG pH POC ABG pCO2 POC ABG pO2 Sodium 149 H Potassium 5.6 H Chloride 115.9 H Carbon Dioxide 13 L BUN 56 H Creatinine 4.3 H Glucose 124 H POC Glucose 55 L 148 H Lactic Acid Calcium 6.0 L Phosphorus Magnesium Iron TIBC Transferrin Total Bilirubin Direct Bilirubin AST ALT Alkaline Phosphatase Lactate Dehydrogenase CK-MB (CK-2) Troponin T C-Reactive Protein Total Protein Albumin Triglycerides Cholesterol HDL Cholesterol Vitamin B12 Urine Creatinine Urine Total Protein Heparin-induced Plt Ab Hep Bs Antibody, Quant Crossmatch 12/06/16 12/06/16 12/07/16 21:24 21:51 02:32 WBC RBC Hgb Hct MCV MCHC RDW Plt Count Lymph % (Auto) [place] % (Auto) [place] # Baso # Seg Neutrophils % Seg Neuts % (Manual) Lymphocytes % (Manual) Monocytes % (Manual) Nucleated RBC % Seg Neutrophils # Seg Neutrophils # Man Lymphocytes # (Manual) Monocytes # (Manual) Percent Retic Haptoglobin PT INR Fibrinogen D-Dimer POC ABG pH POC ABG pCO2 17.0 L POC ABG pO2 142 H Sodium Potassium Chloride Carbon Dioxide BUN Creatinine Glucose POC Glucose 107 H 175 H Lactic Acid Calcium Phosphorus Magnesium Iron TIBC Transferrin Total Bilirubin Direct Bilirubin AST ALT Alkaline Phosphatase Lactate Dehydrogenase CK-MB (CK-2) Troponin T C-Reactive Protein Total Protein Albumin Triglycerides Cholesterol HDL Cholesterol Vitamin B12 Urine Creatinine Urine Total Protein Heparin-induced Plt Ab Hep Bs Antibody, Quant Crossmatch 12/07/16 12/07/16 12/07/16 05:01 05:25 06:00 WBC RBC 2.52 L Hgb 7.1 L Hct 22.1 L MCV MCHC RDW 19.3 H Plt Count 90 L Lymph % (Auto) [place] % (Auto) [place] # Baso # Seg Neutrophils % Seg Neuts % (Manual) 75.0 H Lymphocytes % (Manual) 11.0 L Monocytes % (Manual) Nucleated RBC % Seg Neutrophils # Seg Neutrophils # Man Lymphocytes # (Manual) 0.7 L Monocytes # (Manual) Percent Retic Haptoglobin PT INR Fibrinogen D-Dimer POC ABG pH 7.300 L POC ABG pCO2 17.1 L POC ABG pO2 140 H Sodium Potassium Chloride Carbon Dioxide BUN Creatinine Glucose POC Glucose 279 H Lactic Acid Calcium Phosphorus Magnesium Iron TIBC Transferrin Total Bilirubin Direct Bilirubin AST ALT Alkaline Phosphatase Lactate Dehydrogenase CK-MB (CK-2) Troponin T C-Reactive Protein Total Protein Albumin Triglycerides Cholesterol HDL Cholesterol Vitamin B12 Urine Creatinine Urine Total Protein Heparin-induced Plt Ab Hep Bs Antibody, Quant Crossmatch 12/07/16 12/07/16 12/07/16 06:00 06:00 07:30 WBC RBC Hgb Hct MCV MCHC RDW Plt Count Lymph % (Auto) [place] % (Auto) [place] # Baso # Seg Neutrophils % Seg Neuts % (Manual) Lymphocytes % (Manual) Monocytes % (Manual) Nucleated RBC % Seg Neutrophils # Seg Neutrophils # Man Lymphocytes # (Manual) Monocytes # (Manual) Percent Retic Haptoglobin PT INR Fibrinogen D-Dimer POC ABG pH POC ABG pCO2 POC ABG pO2 Sodium Potassium Chloride Carbon Dioxide BUN Creatinine Glucose POC Glucose Lactic Acid 6.90 H* Calcium Phosphorus 6.80 H Magnesium Iron TIBC Transferrin Total Bilirubin Direct Bilirubin AST ALT Alkaline Phosphatase Lactate Dehydrogenase CK-MB (CK-2) Troponin T C-Reactive Protein 39.40 H Total Protein Albumin Triglycerides Cholesterol HDL Cholesterol Vitamin B12 Urine Creatinine Urine Total Protein Heparin-induced Plt Ab Hep Bs Antibody, Quant Crossmatch 12/07/16 12/07/16 12/07/16 08:40 10:53 14:31 WBC RBC Hgb Hct MCV MCHC RDW Plt Count Lymph % (Auto) [place] % (Auto) [place] # Baso # Seg Neutrophils % Seg Neuts % (Manual) Lymphocytes % (Manual) Monocytes % (Manual) Nucleated RBC % Seg Neutrophils # Seg Neutrophils # Man Lymphocytes # (Manual) Monocytes # (Manual) Percent Retic Haptoglobin PT INR Fibrinogen D-Dimer POC ABG pH POC ABG pCO2 POC ABG pO2 Sodium Potassium 7.0 H* D Chloride 112.4 H Carbon Dioxide 8 L* BUN 61 H Creatinine 5.1 H Glucose 213 H POC Glucose 353 H 52 L Lactic Acid Calcium 5.8 L* Phosphorus Magnesium Iron TIBC Transferrin Total Bilirubin Direct Bilirubin AST ALT Alkaline Phosphatase Lactate Dehydrogenase CK-MB (CK-2) Troponin T C-Reactive Protein Total Protein Albumin Triglycerides Cholesterol HDL Cholesterol Vitamin B12 Urine Creatinine Urine Total Protein Heparin-induced Plt Ab Hep Bs Antibody, Quant Crossmatch 12/07/16 12/07/16 12/07/16 14:45 15:33 16:22 WBC RBC Hgb Hct MCV MCHC RDW Plt Count Lymph % (Auto) [place] % (Auto) [place] # Baso # Seg Neutrophils % Seg Neuts % (Manual) Lymphocytes % (Manual) Monocytes % (Manual) Nucleated RBC % Seg Neutrophils # Seg Neutrophils # Man Lymphocytes # (Manual) Monocytes # (Manual) Percent Retic Haptoglobin PT 17.5 H INR 1.44 H Fibrinogen D-Dimer POC ABG pH POC ABG pCO2 POC ABG pO2 Sodium Potassium Chloride Carbon Dioxide BUN Creatinine Glucose POC Glucose < 40 L 118 H Lactic Acid Calcium Phosphorus Magnesium Iron TIBC Transferrin Total Bilirubin Direct Bilirubin AST ALT Alkaline Phosphatase Lactate Dehydrogenase CK-MB (CK-2) Troponin T C-Reactive Protein Total Protein Albumin Triglycerides Cholesterol HDL Cholesterol Vitamin B12 Urine Creatinine Urine Total Protein Heparin-induced Plt Ab Hep Bs Antibody, Quant Crossmatch 12/07/16 12/07/16 12/07/16 21:35 21:35 21:58 WBC RBC Hgb Hct MCV MCHC RDW Plt Count Lymph % (Auto) [place] % (Auto) [place] # Baso # Seg Neutrophils % Seg Neuts % (Manual) Lymphocytes % (Manual) Monocytes % (Manual) Nucleated RBC % Seg Neutrophils # Seg Neutrophils # Man Lymphocytes # (Manual) Monocytes # (Manual) Percent Retic Haptoglobin PT INR Fibrinogen D-Dimer POC ABG pH POC ABG pCO2 POC ABG pO2 Sodium 150 H Potassium 3.3 L D Chloride 111.4 H Carbon Dioxide 21 L D BUN 22 H Creatinine 2.6 H Glucose 23 L* POC Glucose < 40 L Lactic Acid Calcium Phosphorus Magnesium Iron TIBC Transferrin Total Bilirubin 1.40 H Direct Bilirubin 0.9 H AST 94 H ALT 142 H Alkaline Phosphatase 249 H Lactate Dehydrogenase CK-MB (CK-2) Troponin T C-Reactive Protein Total Protein 4.6 L D Albumin 2.1 L Triglycerides Cholesterol HDL Cholesterol Vitamin B12 Urine Creatinine Urine Total Protein Heparin-induced Plt Ab Hep Bs Antibody, Quant Crossmatch 12/07/16 12/08/16 12/08/16 23:31 04:43 04:50 WBC RBC 2.35 L Hgb 6.6 L Hct 20.1 L MCV MCHC RDW 17.8 H Plt Count 48 L Lymph % (Auto) [place] % (Auto) [place] # Baso # Seg Neutrophils % Seg Neuts % (Manual) Lymphocytes % (Manual) Monocytes % (Manual) Nucleated RBC % Seg Neutrophils # Seg Neutrophils # Man Lymphocytes # (Manual) 0.9 L Monocytes # (Manual) Percent Retic Haptoglobin PT INR Fibrinogen D-Dimer POC ABG pH 7.586 H POC ABG pCO2 17.7 L POC ABG pO2 150 H Sodium Potassium Chloride Carbon Dioxide BUN Creatinine Glucose POC Glucose 42 L Lactic Acid Calcium Phosphorus Magnesium Iron TIBC Transferrin Total Bilirubin Direct Bilirubin AST ALT Alkaline Phosphatase Lactate Dehydrogenase CK-MB (CK-2) Troponin T C-Reactive Protein Total Protein Albumin Triglycerides Cholesterol HDL Cholesterol Vitamin B12 Urine Creatinine Urine Total Protein Heparin-induced Plt Ab Hep Bs Antibody, Quant Crossmatch 12/08/16 12/08/16 12/08/16 04:50 04:59 06:54 WBC RBC Hgb Hct MCV MCHC RDW Plt Count Lymph % (Auto) [place] % (Auto) [place] # Baso # Seg Neutrophils % Seg Neuts % (Manual) Lymphocytes % (Manual) Monocytes % (Manual) Nucleated RBC % Seg Neutrophils # Seg Neutrophils # Man Lymphocytes # (Manual) Monocytes # (Manual) Percent Retic Haptoglobin PT INR Fibrinogen D-Dimer POC ABG pH POC ABG pCO2 POC ABG pO2 Sodium 149 H Potassium 3.2 L Chloride 111.8 H Carbon Dioxide 17 L BUN 26 H Creatinine 3.4 H Glucose 163 H POC Glucose 204 H 203 H Lactic Acid Calcium 7.7 L Phosphorus 2.40 L D Magnesium Iron TIBC Transferrin Total Bilirubin Direct Bilirubin AST ALT Alkaline Phosphatase Lactate Dehydrogenase CK-MB (CK-2) Troponin T C-Reactive Protein Total Protein Albumin Triglycerides Cholesterol HDL Cholesterol Vitamin B12 Urine Creatinine Urine Total Protein Heparin-induced Plt Ab Hep Bs Antibody, Quant Crossmatch 12/08/16 12/08/16 12/08/16 08:04 08:46 08:46 WBC RBC Hgb Hct MCV MCHC RDW Plt Count Lymph % (Auto) [place] % (Auto) [place] # Baso # Seg Neutrophils % Seg Neuts % (Manual) Lymphocytes % (Manual) Monocytes % (Manual) Nucleated RBC % Seg Neutrophils # Seg Neutrophils # Man Lymphocytes # (Manual) Monocytes # (Manual) Percent Retic Haptoglobin PT INR Fibrinogen D-Dimer POC ABG pH POC ABG pCO2 POC ABG pO2 Sodium 147 H Potassium 2.9 L* Chloride 110.6 H Carbon Dioxide 17 L BUN 28 H Creatinine 3.6 H Glucose 127 H POC Glucose 205 H Lactic Acid Calcium 7.3 L Phosphorus Magnesium Iron TIBC Transferrin Total Bilirubin Direct Bilirubin AST ALT Alkaline Phosphatase Lactate Dehydrogenase CK-MB (CK-2) Troponin T C-Reactive Protein Total Protein Albumin Triglycerides Cholesterol HDL Cholesterol Vitamin B12 Urine Creatinine Urine Total Protein Heparin-induced Plt Ab Hep Bs Antibody, Quant Crossmatch See Detail 12/08/16 12/08/16 12/08/16 12:36 19:00 19:00 WBC RBC Hgb Hct MCV MCHC RDW Plt Count Lymph % (Auto) [place] % (Auto) [place] # Baso # Seg Neutrophils % Seg Neuts % (Manual) Lymphocytes % (Manual) Monocytes % (Manual) Nucleated RBC % Seg Neutrophils # Seg Neutrophils # Man Lymphocytes # (Manual) Monocytes # (Manual) Percent Retic Haptoglobin PT 15.3 H INR 1.22 H Fibrinogen 563 H D-Dimer 5507.36 H POC ABG pH POC ABG pCO2 POC ABG pO2 Sodium Potassium Chloride Carbon Dioxide 21 L BUN Creatinine 1.7 H D Glucose 155 H POC Glucose 181 H Lactic Acid Calcium Phosphorus Magnesium Iron TIBC Transferrin Total Bilirubin Direct Bilirubin AST ALT Alkaline Phosphatase Lactate Dehydrogenase CK-MB (CK-2) Troponin T C-Reactive Protein Total Protein Albumin Triglycerides Cholesterol HDL Cholesterol Vitamin B12 Urine Creatinine Urine Total Protein Heparin-induced Plt Ab Hep Bs Antibody, Quant Crossmatch 12/08/16 12/08/16 12/08/16 19:00 19:00 21:30 WBC RBC 2.76 L Hgb 7.8 L Hct 23.7 L MCV MCHC RDW 17.0 H Plt Count 38 L Lymph % (Auto) [place] % (Auto) [place] # Baso # Seg Neutrophils % Seg Neuts % (Manual) Lymphocytes % (Manual) Monocytes % (Manual) Nucleated RBC % Seg Neutrophils # Seg Neutrophils # Man Lymphocytes # (Manual) Monocytes # (Manual) Percent Retic Haptoglobin 271 H PT INR Fibrinogen D-Dimer POC ABG pH POC ABG pCO2 POC ABG pO2 Sodium Potassium Chloride Carbon Dioxide BUN Creatinine Glucose POC Glucose Lactic Acid Calcium Phosphorus Magnesium Iron TIBC Transferrin Total Bilirubin Direct Bilirubin AST ALT Alkaline Phosphatase Lactate Dehydrogenase 382 H CK-MB (CK-2) Troponin T C-Reactive Protein Total Protein Albumin Triglycerides Cholesterol HDL Cholesterol Vitamin B12 Urine Creatinine Urine Total Protein Heparin-induced Plt Ab Hep Bs Antibody, Quant Crossmatch 12/08/16 12/08/16 12/09/16 23:32 23:44 05:22 WBC RBC Hgb Hct MCV MCHC RDW Plt Count Lymph % (Auto) [place] % (Auto) [place] # Baso # Seg Neutrophils % Seg Neuts % (Manual) Lymphocytes % (Manual) Monocytes % (Manual) Nucleated RBC % Seg Neutrophils # Seg Neutrophils # Man Lymphocytes # (Manual) Monocytes # (Manual) Percent Retic Haptoglobin PT INR Fibrinogen D-Dimer POC ABG pH 7.498 H POC ABG pCO2 25.2 L POC ABG pO2 137 H Sodium Potassium Chloride Carbon Dioxide BUN Creatinine Glucose POC Glucose 311 H 113 H Lactic Acid Calcium Phosphorus Magnesium Iron TIBC Transferrin Total Bilirubin Direct Bilirubin AST ALT Alkaline Phosphatase Lactate Dehydrogenase CK-MB (CK-2) Troponin T C-Reactive Protein Total Protein Albumin Triglycerides Cholesterol HDL Cholesterol Vitamin B12 Urine Creatinine Urine Total Protein Heparin-induced Plt Ab Hep Bs Antibody, Quant Crossmatch 12/09/16 12/09/16 12/09/16 06:00 11:29 11:59 WBC RBC Hgb Hct MCV MCHC RDW Plt Count Lymph % (Auto) [place] % (Auto) [place] # Baso # Seg Neutrophils % Seg Neuts % (Manual) Lymphocytes % (Manual) Monocytes % (Manual) Nucleated RBC % Seg Neutrophils # Seg Neutrophils # Man Lymphocytes # (Manual) Monocytes # (Manual) Percent Retic 0.23 L Haptoglobin PT INR Fibrinogen D-Dimer POC ABG pH POC ABG pCO2 POC ABG pO2 Sodium Potassium Chloride 110.2 H Carbon Dioxide 18 L BUN 19 H Creatinine 2.5 H Glucose 105 H POC Glucose 254 H Lactic Acid Calcium Phosphorus 2.00 L Magnesium Iron TIBC Transferrin Total Bilirubin Direct Bilirubin AST ALT Alkaline Phosphatase Lactate Dehydrogenase CK-MB (CK-2) Troponin T C-Reactive Protein Total Protein Albumin Triglycerides Cholesterol HDL Cholesterol Vitamin B12 Urine Creatinine Urine Total Protein Heparin-induced Plt Ab Hep Bs Antibody, Quant Crossmatch 12/09/16 12/09/16 12/09/16 12:02 13:27 13:27 WBC RBC Hgb Hct MCV MCHC RDW Plt Count Lymph % (Auto) [place] % (Auto) [place] # Baso # Seg Neutrophils % Seg Neuts % (Manual) Lymphocytes % (Manual) Monocytes % (Manual) Nucleated RBC % Seg Neutrophils # Seg Neutrophils # Man Lymphocytes # (Manual) Monocytes # (Manual) Percent Retic Haptoglobin PT INR Fibrinogen D-Dimer POC ABG pH 7.326 L POC ABG pCO2 POC ABG pO2 115 H Sodium Potassium Chloride Carbon Dioxide BUN Creatinine Glucose POC Glucose Lactic Acid Calcium Phosphorus Magnesium Iron 15 L TIBC 134 L Transferrin Total Bilirubin Direct Bilirubin AST ALT Alkaline Phosphatase Lactate Dehydrogenase CK-MB (CK-2) Troponin T C-Reactive Protein Total Protein Albumin Triglycerides Cholesterol HDL Cholesterol Vitamin B12 > 2000 H Urine Creatinine Urine Total Protein Heparin-induced Plt Ab Hep Bs Antibody, Quant Crossmatch 12/09/16 12/09/16 12/09/16 13:27 13:27 16:28 WBC RBC Hgb Hct MCV MCHC RDW Plt Count Lymph % (Auto) [place] % (Auto) [place] # Baso # Seg Neutrophils % Seg Neuts % (Manual) Lymphocytes % (Manual) Monocytes % (Manual) Nucleated RBC % Seg Neutrophils # Seg Neutrophils # Man Lymphocytes # (Manual) Monocytes # (Manual) Percent Retic Haptoglobin PT INR Fibrinogen D-Dimer POC ABG pH POC ABG pCO2 POC ABG pO2 Sodium Potassium Chloride Carbon Dioxide BUN Creatinine Glucose POC Glucose 199 H Lactic Acid Calcium Phosphorus Magnesium Iron TIBC Transferrin Total Bilirubin Direct Bilirubin AST ALT Alkaline Phosphatase Lactate Dehydrogenase CK-MB (CK-2) Troponin T C-Reactive Protein Total Protein Albumin Triglycerides Cholesterol HDL Cholesterol Vitamin B12 Urine Creatinine Urine Total Protein Heparin-induced Plt Ab Weak positive H Hep Bs Antibody, Quant <5 L Crossmatch 12/09/16 12/09/16 12/10/16 23:27 Unknown 05:36 WBC 11.3 H RBC 2.92 L Hgb 8.4 L Hct 25.3 L MCV MCHC RDW 16.9 H Plt Count 31 L Lymph % (Auto) [place] % (Auto) [place] # Baso # Seg Neutrophils % Seg Neuts % (Manual) Lymphocytes % (Manual) Monocytes % (Manual) Nucleated RBC % Seg Neutrophils # Seg Neutrophils # Man Lymphocytes # (Manual) Monocytes # (Manual) Percent Retic Haptoglobin PT INR Fibrinogen D-Dimer POC ABG pH POC ABG pCO2 POC ABG pO2 Sodium Potassium Chloride Carbon Dioxide BUN Creatinine Glucose POC Glucose 247 H 248 H Lactic Acid Calcium Phosphorus Magnesium Iron TIBC Transferrin Total Bilirubin Direct Bilirubin AST ALT Alkaline Phosphatase Lactate Dehydrogenase CK-MB (CK-2) Troponin T C-Reactive Protein Total Protein Albumin Triglycerides Cholesterol HDL Cholesterol Vitamin B12 Urine Creatinine Urine Total Protein Heparin-induced Plt Ab Hep Bs Antibody, Quant Crossmatch 12/10/16 12/10/16 12/10/16 09:55 09:55 11:49 WBC 21.2 H RBC 3.37 L Hgb 9.6 L Hct 29.5 L MCV MCHC RDW 16.3 H Plt Count 102 L D Lymph % (Auto) [place] % (Auto) [place] # Baso # Seg Neutrophils % Seg Neuts % (Manual) Lymphocytes % (Manual) Monocytes % (Manual) Nucleated RBC % Seg Neutrophils # Seg Neutrophils # Man Lymphocytes # (Manual) Monocytes # (Manual) Percent Retic Haptoglobin PT INR Fibrinogen D-Dimer POC ABG pH POC ABG pCO2 POC ABG pO2 Sodium Potassium Chloride 107.4 H Carbon Dioxide 21 L BUN 37 H Creatinine 4.2 H D Glucose 174 H POC Glucose 265 H Lactic Acid Calcium Phosphorus Magnesium Iron TIBC Transferrin Total Bilirubin Direct Bilirubin AST ALT Alkaline Phosphatase Lactate Dehydrogenase CK-MB (CK-2) Troponin T C-Reactive Protein Total Protein Albumin Triglycerides Cholesterol HDL Cholesterol Vitamin B12 Urine Creatinine Urine Total Protein Heparin-induced Plt Ab Hep Bs Antibody, Quant Crossmatch 12/10/16 12/10/16 12/11/16 17:56 23:44 04:30 WBC 23.5 H RBC 3.46 L Hgb 9.7 L Hct 30.1 L MCV MCHC RDW 16.4 H Plt Count 115 L Lymph % (Auto) [place] % (Auto) [place] # Baso # Seg Neutrophils % Seg Neuts % (Manual) 84.0 H Lymphocytes % (Manual) 5.0 L Monocytes % (Manual) 10.0 H Nucleated RBC % 1.0 H Seg Neutrophils # Seg Neutrophils # Man 19.7 H Lymphocytes # (Manual) Monocytes # (Manual) 2.4 H Percent Retic Haptoglobin PT INR Fibrinogen D-Dimer POC ABG pH POC ABG pCO2 POC ABG pO2 Sodium Potassium Chloride Carbon Dioxide BUN Creatinine Glucose POC Glucose 118 H 378 H Lactic Acid Calcium Phosphorus Magnesium Iron TIBC Transferrin Total Bilirubin Direct Bilirubin AST ALT Alkaline Phosphatase Lactate Dehydrogenase CK-MB (CK-2) Troponin T C-Reactive Protein Total Protein Albumin Triglycerides Cholesterol HDL Cholesterol Vitamin B12 Urine Creatinine Urine Total Protein Heparin-induced Plt Ab Hep Bs Antibody, Quant Crossmatch 12/11/16 12/11/16 12/11/16 04:30 05:33 12:48 WBC RBC Hgb Hct MCV MCHC RDW Plt Count Lymph % (Auto) [place] % (Auto) [place] # Baso # Seg Neutrophils % Seg Neuts % (Manual) Lymphocytes % (Manual) Monocytes % (Manual) Nucleated RBC % Seg Neutrophils # Seg Neutrophils # Man Lymphocytes # (Manual) Monocytes # (Manual) Percent Retic Haptoglobin PT INR Fibrinogen D-Dimer POC ABG pH POC ABG pCO2 POC ABG pO2 Sodium Potassium Chloride Carbon Dioxide 21 L BUN 50 H Creatinine 4.8 H Glucose 303 H POC Glucose 335 H 325 H Lactic Acid Calcium 8.2 L Phosphorus Magnesium Iron TIBC Transferrin Total Bilirubin Direct Bilirubin AST ALT Alkaline Phosphatase Lactate Dehydrogenase CK-MB (CK-2) Troponin T C-Reactive Protein Total Protein Albumin Triglycerides Cholesterol HDL Cholesterol Vitamin B12 Urine Creatinine Urine Total Protein Heparin-induced Plt Ab Hep Bs Antibody, Quant Crossmatch 12/11/16 12/11/16 12/12/16 17:49 21:16 00:49 WBC RBC Hgb Hct MCV MCHC RDW Plt Count Lymph % (Auto) [place] % (Auto) [place] # Baso # Seg Neutrophils % Seg Neuts % (Manual) Lymphocytes % (Manual) Monocytes % (Manual) Nucleated RBC % Seg Neutrophils # Seg Neutrophils # Man Lymphocytes # (Manual) Monocytes # (Manual) Percent Retic Haptoglobin PT INR Fibrinogen D-Dimer POC ABG pH POC ABG pCO2 POC ABG pO2 Sodium Potassium Chloride Carbon Dioxide BUN Creatinine Glucose POC Glucose 368 H 162 H 225 H Lactic Acid Calcium Phosphorus Magnesium Iron TIBC Transferrin Total Bilirubin Direct Bilirubin AST ALT Alkaline Phosphatase Lactate Dehydrogenase CK-MB (CK-2) Troponin T C-Reactive Protein Total Protein Albumin Triglycerides Cholesterol HDL Cholesterol Vitamin B12 Urine Creatinine Urine Total Protein Heparin-induced Plt Ab Hep Bs Antibody, Quant Crossmatch 12/12/16 12/12/16 12/12/16 06:09 07:52 08:18 WBC 24.1 H RBC 3.16 L Hgb 9.0 L Hct 29.4 L MCV MCHC RDW 16.6 H Plt Count 96 L Lymph % (Auto) [place] % (Auto) [place] # Baso # Seg Neutrophils % Seg Neuts % (Manual) 75.0 H Lymphocytes % (Manual) Monocytes % (Manual) Nucleated RBC % Seg Neutrophils # Seg Neutrophils # Man 18.1 H Lymphocytes # (Manual) Monocytes # (Manual) 1.4 H Percent Retic Haptoglobin PT INR Fibrinogen D-Dimer POC ABG pH POC ABG pCO2 POC ABG pO2 Sodium Potassium Chloride Carbon Dioxide BUN Creatinine Glucose POC Glucose 428 H 418 H Lactic Acid Calcium Phosphorus Magnesium Iron TIBC Transferrin Total Bilirubin Direct Bilirubin AST ALT Alkaline Phosphatase Lactate Dehydrogenase CK-MB (CK-2) Troponin T C-Reactive Protein Total Protein Albumin Triglycerides Cholesterol HDL Cholesterol Vitamin B12 Urine Creatinine Urine Total Protein Heparin-induced Plt Ab Hep Bs Antibody, Quant Crossmatch 12/12/16 12/12/16 12/12/16 08:18 11:31 17:03 WBC RBC Hgb Hct MCV MCHC RDW Plt Count Lymph % (Auto) [place] % (Auto) [place] # Baso # Seg Neutrophils % Seg Neuts % (Manual) Lymphocytes % (Manual) Monocytes % (Manual) Nucleated RBC % Seg Neutrophils # Seg Neutrophils # Man Lymphocytes # (Manual) Monocytes # (Manual) Percent Retic Haptoglobin PT INR Fibrinogen D-Dimer POC ABG pH POC ABG pCO2 POC ABG pO2 Sodium Potassium Chloride Carbon Dioxide 12 L D BUN 41 H Creatinine 4.5 H Glucose 369 H POC Glucose 212 H 422 H Lactic Acid Calcium Phosphorus Magnesium Iron TIBC Transferrin Total Bilirubin Direct Bilirubin AST ALT Alkaline Phosphatase Lactate Dehydrogenase CK-MB (CK-2) Troponin T C-Reactive Protein Total Protein Albumin Triglycerides Cholesterol HDL Cholesterol Vitamin B12 Urine Creatinine Urine Total Protein Heparin-induced Plt Ab Hep Bs Antibody, Quant Crossmatch 12/12/16 12/13/16 12/13/16 21:35 07:49 07:49 WBC 24.0 H RBC 2.90 L Hgb 8.3 L Hct 25.8 L MCV MCHC RDW 15.5 H Plt Count 120 L Lymph % (Auto) [place] % (Auto) [place] # Baso # Seg Neutrophils % Seg Neuts % (Manual) 89.0 H Lymphocytes % (Manual) 7.0 L Monocytes % (Manual) Nucleated RBC % Seg Neutrophils # Seg Neutrophils # Man 21.4 H Lymphocytes # (Manual) Monocytes # (Manual) Percent Retic Haptoglobin PT INR Fibrinogen D-Dimer POC ABG pH POC ABG pCO2 POC ABG pO2 Sodium Potassium 3.2 L Chloride Carbon Dioxide BUN 21 H Creatinine 3.0 H Glucose 21 L* POC Glucose 185 H Lactic Acid Calcium Phosphorus Magnesium Iron TIBC Transferrin Total Bilirubin Direct Bilirubin AST ALT Alkaline Phosphatase Lactate Dehydrogenase CK-MB (CK-2) Troponin T C-Reactive Protein Total Protein Albumin Triglycerides Cholesterol HDL Cholesterol Vitamin B12 Urine Creatinine Urine Total Protein Heparin-induced Plt Ab Hep Bs Antibody, Quant Crossmatch 12/13/16 12/13/16 12/13/16 09:57 11:02 16:52 WBC RBC Hgb Hct MCV MCHC RDW Plt Count Lymph % (Auto) [place] % (Auto) [place] # Baso # Seg Neutrophils % Seg Neuts % (Manual) Lymphocytes % (Manual) Monocytes % (Manual) Nucleated RBC % Seg Neutrophils # Seg Neutrophils # Man Lymphocytes # (Manual) Monocytes # (Manual) Percent Retic Haptoglobin PT INR Fibrinogen D-Dimer POC ABG pH POC ABG pCO2 POC ABG pO2 Sodium Potassium Chloride Carbon Dioxide BUN Creatinine Glucose POC Glucose < 40 L 231 H 312 H Lactic Acid Calcium Phosphorus Magnesium Iron TIBC Transferrin Total Bilirubin Direct Bilirubin AST ALT Alkaline Phosphatase Lactate Dehydrogenase CK-MB (CK-2) Troponin T C-Reactive Protein Total Protein Albumin Triglycerides Cholesterol HDL Cholesterol Vitamin B12 Urine Creatinine Urine Total Protein Heparin-induced Plt Ab Hep Bs Antibody, Quant Crossmatch 12/13/16 12/14/16 12/14/16 21:32 07:07 07:07 WBC 16.7 H RBC 2.80 L Hgb 7.9 L Hct 24.7 L MCV MCHC RDW 15.4 H Plt Count 131 L Lymph % (Auto) 13.1 L [place] % (Auto) [place] # 1.2 H Baso # Seg Neutrophils % 78.3 H Seg Neuts % (Manual) Lymphocytes % (Manual) Monocytes % (Manual) Nucleated RBC % Seg Neutrophils # 13.1 H Seg Neutrophils # Man Lymphocytes # (Manual) Monocytes # (Manual) Percent Retic Haptoglobin PT INR Fibrinogen D-Dimer POC ABG pH POC ABG pCO2 POC ABG pO2 Sodium Potassium 3.5 L Chloride Carbon Dioxide BUN 30 H Creatinine 4.6 H D Glucose 181 H POC Glucose 275 H Lactic Acid Calcium 7.7 L Phosphorus Magnesium Iron TIBC Transferrin Total Bilirubin Direct Bilirubin AST ALT Alkaline Phosphatase Lactate Dehydrogenase CK-MB (CK-2) Troponin T C-Reactive Protein Total Protein Albumin Triglycerides Cholesterol HDL Cholesterol Vitamin B12 Urine Creatinine Urine Total Protein Heparin-induced Plt Ab Hep Bs Antibody, Quant Crossmatch 12/14/16 12/14/16 12/14/16 07:46 11:35 16:24 WBC RBC Hgb Hct MCV MCHC RDW Plt Count Lymph % (Auto) [place] % (Auto) [place] # Baso # Seg Neutrophils % Seg Neuts % (Manual) Lymphocytes % (Manual) Monocytes % (Manual) Nucleated RBC % Seg Neutrophils # Seg Neutrophils # Man Lymphocytes # (Manual) Monocytes # (Manual) Percent Retic Haptoglobin PT INR Fibrinogen D-Dimer POC ABG pH POC ABG pCO2 POC ABG pO2 Sodium Potassium Chloride Carbon Dioxide BUN Creatinine Glucose POC Glucose 189 H 254 H 466 H Lactic Acid Calcium Phosphorus Magnesium Iron TIBC Transferrin Total Bilirubin Direct Bilirubin AST ALT Alkaline Phosphatase Lactate Dehydrogenase CK-MB (CK-2) Troponin T C-Reactive Protein Total Protein Albumin Triglycerides Cholesterol HDL Cholesterol Vitamin B12 Urine Creatinine Urine Total Protein Heparin-induced Plt Ab Hep Bs Antibody, Quant Crossmatch 12/14/16 12/15/16 12/15/16 20:57 06:27 07:46 WBC RBC Hgb Hct MCV MCHC RDW Plt Count Lymph % (Auto) [place] % (Auto) [place] # Baso # Seg Neutrophils % Seg Neuts % (Manual) Lymphocytes % (Manual) Monocytes % (Manual) Nucleated RBC % Seg Neutrophils # Seg Neutrophils # Man Lymphocytes # (Manual) Monocytes # (Manual) Percent Retic Haptoglobin PT INR Fibrinogen D-Dimer POC ABG pH POC ABG pCO2 POC ABG pO2 Sodium Potassium Chloride Carbon Dioxide BUN Creatinine Glucose POC Glucose 301 H 183 H 231 H Lactic Acid Calcium Phosphorus Magnesium Iron TIBC Transferrin Total Bilirubin Direct Bilirubin AST ALT Alkaline Phosphatase Lactate Dehydrogenase CK-MB (CK-2) Troponin T C-Reactive Protein Total Protein Albumin Triglycerides Cholesterol HDL Cholesterol Vitamin B12 Urine Creatinine Urine Total Protein Heparin-induced Plt Ab Hep Bs Antibody, Quant Crossmatch 12/15/16 12/15/16 12/15/16 11:38 15:34 20:51 WBC RBC Hgb Hct MCV MCHC RDW Plt Count Lymph % (Auto) [place] % (Auto) [place] # Baso # Seg Neutrophils % Seg Neuts % (Manual) Lymphocytes % (Manual) Monocytes % (Manual) Nucleated RBC % Seg Neutrophils # Seg Neutrophils # Man Lymphocytes # (Manual) Monocytes # (Manual) Percent Retic Haptoglobin PT INR Fibrinogen D-Dimer POC ABG pH POC ABG pCO2 POC ABG pO2 Sodium Potassium Chloride Carbon Dioxide BUN Creatinine Glucose POC Glucose 375 H 313 H 274 H Lactic Acid Calcium Phosphorus Magnesium Iron TIBC Transferrin Total Bilirubin Direct Bilirubin AST ALT Alkaline Phosphatase Lactate Dehydrogenase CK-MB (CK-2) Troponin T C-Reactive Protein Total Protein Albumin Triglycerides Cholesterol HDL Cholesterol Vitamin B12 Urine Creatinine Urine Total Protein Heparin-induced Plt Ab Hep Bs Antibody, Quant Crossmatch 12/16/16 12/16/16 12/16/16 08:26 09:12 17:13 WBC RBC Hgb Hct MCV MCHC RDW Plt Count Lymph % (Auto) [place] % (Auto) [place] # Baso # Seg Neutrophils % Seg Neuts % (Manual) Lymphocytes % (Manual) Monocytes % (Manual) Nucleated RBC % Seg Neutrophils # Seg Neutrophils # Man Lymphocytes # (Manual) Monocytes # (Manual) Percent Retic Haptoglobin PT INR Fibrinogen D-Dimer POC ABG pH POC ABG pCO2 POC ABG pO2 Sodium Potassium Chloride Carbon Dioxide BUN Creatinine Glucose POC Glucose 59 L 127 H > 500 H Lactic Acid Calcium Phosphorus Magnesium Iron TIBC Transferrin Total Bilirubin Direct Bilirubin AST ALT Alkaline Phosphatase Lactate Dehydrogenase CK-MB (CK-2) Troponin T C-Reactive Protein Total Protein Albumin Triglycerides Cholesterol HDL Cholesterol Vitamin B12 Urine Creatinine Urine Total Protein Heparin-induced Plt Ab Hep Bs Antibody, Quant Crossmatch 12/16/16 12/16/16 12/16/16 22:59 Unknown Unknown WBC 17.2 H RBC 2.83 L Hgb 7.9 L Hct 24.4 L MCV MCHC RDW Plt Count Lymph % (Auto) 9.2 L [place] % (Auto) [place] # 0.9 H Baso # Seg Neutrophils % 84.1 H Seg Neuts % (Manual) Lymphocytes % (Manual) Monocytes % (Manual) Nucleated RBC % Seg Neutrophils # 14.5 H Seg Neutrophils # Man Lymphocytes # (Manual) Monocytes # (Manual) Percent Retic Haptoglobin PT INR Fibrinogen D-Dimer POC ABG pH POC ABG pCO2 POC ABG pO2 Sodium Potassium Chloride Carbon Dioxide BUN 43 H Creatinine 5.4 H Glucose 131 H POC Glucose 320 H Lactic Acid Calcium 6.9 L Phosphorus Magnesium Iron TIBC Transferrin Total Bilirubin Direct Bilirubin AST ALT Alkaline Phosphatase Lactate Dehydrogenase CK-MB (CK-2) Troponin T C-Reactive Protein Total Protein Albumin Triglycerides Cholesterol HDL Cholesterol Vitamin B12 Urine Creatinine Urine Total Protein Heparin-induced Plt Ab Hep Bs Antibody, Quant Crossmatch 12/17/16 12/17/16 12/17/16 08:26 08:56 09:52 WBC RBC Hgb Hct MCV MCHC RDW Plt Count Lymph % (Auto) [place] % (Auto) [place] # Baso # Seg Neutrophils % Seg Neuts % (Manual) Lymphocytes % (Manual) Monocytes % (Manual) Nucleated RBC % Seg Neutrophils # Seg Neutrophils # Man Lymphocytes # (Manual) Monocytes # (Manual) Percent Retic Haptoglobin PT INR Fibrinogen D-Dimer POC ABG pH POC ABG pCO2 POC ABG pO2 Sodium Potassium Chloride Carbon Dioxide BUN Creatinine Glucose POC Glucose < 40 L 40 L 133 H Lactic Acid Calcium Phosphorus Magnesium Iron TIBC Transferrin Total Bilirubin Direct Bilirubin AST ALT Alkaline Phosphatase Lactate Dehydrogenase CK-MB (CK-2) Troponin T C-Reactive Protein Total Protein Albumin Triglycerides Cholesterol HDL Cholesterol Vitamin B12 Urine Creatinine Urine Total Protein Heparin-induced Plt Ab Hep Bs Antibody, Quant Crossmatch 12/17/16 12/17/16 12/17/16 12:51 16:08 21:00 WBC RBC Hgb Hct MCV MCHC RDW Plt Count Lymph % (Auto) [place] % (Auto) [place] # Baso # Seg Neutrophils % Seg Neuts % (Manual) Lymphocytes % (Manual) Monocytes % (Manual) Nucleated RBC % Seg Neutrophils # Seg Neutrophils # Man Lymphocytes # (Manual) Monocytes # (Manual) Percent Retic Haptoglobin PT INR Fibrinogen D-Dimer POC ABG pH POC ABG pCO2 POC ABG pO2 Sodium Potassium Chloride Carbon Dioxide BUN Creatinine Glucose POC Glucose 177 H 303 H 489 H Lactic Acid Calcium Phosphorus Magnesium Iron TIBC Transferrin Total Bilirubin Direct Bilirubin AST ALT Alkaline Phosphatase Lactate Dehydrogenase CK-MB (CK-2) Troponin T C-Reactive Protein Total Protein Albumin Triglycerides Cholesterol HDL Cholesterol Vitamin B12 Urine Creatinine Urine Total Protein Heparin-induced Plt Ab Hep Bs Antibody, Quant Crossmatch 12/17/16 12/17/16 12/18/16 Unknown Unknown 05:50 WBC 16.6 H 15.6 H RBC 2.63 L 2.58 L Hgb 7.5 L 7.3 L Hct 23.3 L 23.0 L MCV MCHC RDW 15.3 H 15.9 H Plt Count Lymph % (Auto) 7.7 L 8.7 L [place] % (Auto) [place] # 0.9 H Baso # Seg Neutrophils % 85.8 H 83.6 H Seg Neuts % (Manual) Lymphocytes % (Manual) Monocytes % (Manual) Nucleated RBC % Seg Neutrophils # 14.3 H 13.0 H Seg Neutrophils # Man Lymphocytes # (Manual) Monocytes # (Manual) Percent Retic Haptoglobin PT INR Fibrinogen D-Dimer POC ABG pH POC ABG pCO2 POC ABG pO2 Sodium Potassium 3.5 L Chloride Carbon Dioxide BUN 47 H Creatinine 5.2 H Glucose 173 H POC Glucose Lactic Acid Calcium 6.9 L Phosphorus Magnesium Iron TIBC Transferrin Total Bilirubin Direct Bilirubin AST ALT Alkaline Phosphatase Lactate Dehydrogenase CK-MB (CK-2) Troponin T C-Reactive Protein Total Protein Albumin Triglycerides Cholesterol HDL Cholesterol Vitamin B12 Urine Creatinine Urine Total Protein Heparin-induced Plt Ab Hep Bs Antibody, Quant Crossmatch 12/18/16 12/18/16 12/18/16 05:50 09:09 16:46 WBC RBC Hgb Hct MCV MCHC RDW Plt Count Lymph % (Auto) [place] % (Auto) [place] # Baso # Seg Neutrophils % Seg Neuts % (Manual) Lymphocytes % (Manual) Monocytes % (Manual) Nucleated RBC % Seg Neutrophils # Seg Neutrophils # Man Lymphocytes # (Manual) Monocytes # (Manual) Percent Retic Haptoglobin PT INR Fibrinogen D-Dimer POC ABG pH POC ABG pCO2 POC ABG pO2 Sodium Potassium Chloride Carbon Dioxide 17 L BUN 46 H Creatinine 5.0 H Glucose 252 H POC Glucose 349 H 324 H Lactic Acid Calcium 6.8 L Phosphorus Magnesium Iron TIBC Transferrin Total Bilirubin Direct Bilirubin AST ALT Alkaline Phosphatase Lactate Dehydrogenase CK-MB (CK-2) Troponin T C-Reactive Protein Total Protein Albumin Triglycerides Cholesterol HDL Cholesterol Vitamin B12 Urine Creatinine Urine Total Protein Heparin-induced Plt Ab Hep Bs Antibody, Quant Crossmatch 12/18/16 12/19/16 12/19/16 21:14 08:12 10:23 WBC 13.7 H RBC 2.60 L Hgb 7.5 L Hct 23.1 L MCV MCHC RDW 15.7 H Plt Count Lymph % (Auto) 9.1 L [place] % (Auto) [place] # 0.9 H Baso # Seg Neutrophils % 82.2 H Seg Neuts % (Manual) Lymphocytes % (Manual) Monocytes % (Manual) Nucleated RBC % Seg Neutrophils # 11.3 H Seg Neutrophils # Man Lymphocytes # (Manual) Monocytes # (Manual) Percent Retic Haptoglobin PT INR Fibrinogen D-Dimer POC ABG pH POC ABG pCO2 POC ABG pO2 Sodium Potassium Chloride Carbon Dioxide BUN Creatinine Glucose POC Glucose 316 H 464 H Lactic Acid Calcium Phosphorus Magnesium Iron TIBC Transferrin Total Bilirubin Direct Bilirubin AST ALT Alkaline Phosphatase Lactate Dehydrogenase CK-MB (CK-2) Troponin T C-Reactive Protein Total Protein Albumin Triglycerides Cholesterol HDL Cholesterol Vitamin B12 Urine Creatinine Urine Total Protein Heparin-induced Plt Ab Hep Bs Antibody, Quant Crossmatch 12/19/16 12/19/16 12/19/16 10:23 11:39 16:00 WBC RBC Hgb Hct MCV MCHC RDW Plt Count Lymph % (Auto) [place] % (Auto) [place] # Baso # Seg Neutrophils % Seg Neuts % (Manual) Lymphocytes % (Manual) Monocytes % (Manual) Nucleated RBC % Seg Neutrophils # Seg Neutrophils # Man Lymphocytes # (Manual) Monocytes # (Manual) Percent Retic Haptoglobin PT INR Fibrinogen D-Dimer POC ABG pH POC ABG pCO2 POC ABG pO2 Sodium Potassium 3.5 L Chloride Carbon Dioxide 14 L BUN 22 H Creatinine 3.2 H Glucose 446 H POC Glucose 344 H 467 H Lactic Acid Calcium 6.9 L Phosphorus 1.70 L D Magnesium Iron TIBC Transferrin Total Bilirubin Direct Bilirubin AST ALT Alkaline Phosphatase Lactate Dehydrogenase CK-MB (CK-2) Troponin T C-Reactive Protein Total Protein Albumin Triglycerides Cholesterol HDL Cholesterol Vitamin B12 Urine Creatinine Urine Total Protein Heparin-induced Plt Ab Hep Bs Antibody, Quant Crossmatch 12/19/16 12/19/16 12/19/16 16:35 16:35 21:16 WBC 19.3 H RBC 2.37 L Hgb 6.9 L Hct 21.8 L MCV MCHC RDW 16.7 H Plt Count Lymph % (Auto) [place] % (Auto) [place] # Baso # Seg Neutrophils % Seg Neuts % (Manual) Lymphocytes % (Manual) Monocytes % (Manual) Nucleated RBC % Seg Neutrophils # Seg Neutrophils # Man Lymphocytes # (Manual) Monocytes # (Manual) Percent Retic Haptoglobin PT INR Fibrinogen D-Dimer POC ABG pH POC ABG pCO2 POC ABG pO2 Sodium Potassium 3.4 L Chloride Carbon Dioxide 17 L BUN 23 H Creatinine 3.2 H Glucose 427 H POC Glucose 397 H Lactic Acid Calcium 6.9 L Phosphorus 2.40 L D Magnesium Iron TIBC Transferrin Total Bilirubin Direct Bilirubin AST ALT Alkaline Phosphatase Lactate Dehydrogenase CK-MB (CK-2) Troponin T C-Reactive Protein Total Protein Albumin Triglycerides Cholesterol HDL Cholesterol Vitamin B12 Urine Creatinine Urine Total Protein Heparin-induced Plt Ab Hep Bs Antibody, Quant Crossmatch 12/20/16 12/20/16 12/20/16 06:00 06:00 07:55 WBC 17.5 H RBC 2.54 L Hgb 7.3 L Hct 23.5 L MCV MCHC RDW 16.4 H Plt Count Lymph % (Auto) 9.0 L [place] % (Auto) [place] # 1.1 H Baso # Seg Neutrophils % 83.0 H Seg Neuts % (Manual) Lymphocytes % (Manual) Monocytes % (Manual) Nucleated RBC % Seg Neutrophils # 14.5 H Seg Neutrophils # Man Lymphocytes # (Manual) Monocytes # (Manual) Percent Retic Haptoglobin PT INR Fibrinogen D-Dimer POC ABG pH POC ABG pCO2 POC ABG pO2 Sodium 136 L Potassium Chloride 92.4 L Carbon Dioxide 15 L BUN Creatinine 2.6 H Glucose 475 H POC Glucose > 500 H Lactic Acid Calcium Phosphorus Magnesium Iron TIBC Transferrin Total Bilirubin Direct Bilirubin AST ALT Alkaline Phosphatase Lactate Dehydrogenase CK-MB (CK-2) Troponin T C-Reactive Protein Total Protein Albumin Triglycerides Cholesterol HDL Cholesterol Vitamin B12 Urine Creatinine Urine Total Protein Heparin-induced Plt Ab Hep Bs Antibody, Quant Crossmatch 12/20/16 12/20/16 12/20/16 11:21 16:01 22:33 WBC RBC Hgb Hct MCV MCHC RDW Plt Count Lymph % (Auto) [place] % (Auto) [place] # Baso # Seg Neutrophils % Seg Neuts % (Manual) Lymphocytes % (Manual) Monocytes % (Manual) Nucleated RBC % Seg Neutrophils # Seg Neutrophils # Man Lymphocytes # (Manual) Monocytes # (Manual) Percent Retic Haptoglobin PT INR Fibrinogen D-Dimer POC ABG pH POC ABG pCO2 POC ABG pO2 Sodium Potassium Chloride Carbon Dioxide BUN Creatinine Glucose POC Glucose > 500 H 446 H > 500 H Lactic Acid Calcium Phosphorus Magnesium Iron TIBC Transferrin Total Bilirubin Direct Bilirubin AST ALT Alkaline Phosphatase Lactate Dehydrogenase CK-MB (CK-2) Troponin T C-Reactive Protein Total Protein Albumin Triglycerides Cholesterol HDL Cholesterol Vitamin B12 Urine Creatinine Urine Total Protein Heparin-induced Plt Ab Hep Bs Antibody, Quant Crossmatch 12/20/16 12/20/16 12/21/16 22:37 23:00 00:48 WBC RBC Hgb Hct MCV MCHC RDW Plt Count Lymph % (Auto) [place] % (Auto) [place] # Baso # Seg Neutrophils % Seg Neuts % (Manual) Lymphocytes % (Manual) Monocytes % (Manual) Nucleated RBC % Seg Neutrophils # Seg Neutrophils # Man Lymphocytes # (Manual) Monocytes # (Manual) Percent Retic Haptoglobin PT INR Fibrinogen D-Dimer POC ABG pH POC ABG pCO2 POC ABG pO2 Sodium 128 L D Potassium Chloride 83.2 L Carbon Dioxide 11 L BUN 32 H Creatinine 3.5 H Glucose 822 H* POC Glucose > 500 H > 500 H Lactic Acid Calcium 8.2 L Phosphorus Magnesium Iron TIBC Transferrin Total Bilirubin Direct Bilirubin AST ALT Alkaline Phosphatase Lactate Dehydrogenase CK-MB (CK-2) Troponin T C-Reactive Protein Total Protein Albumin Triglycerides Cholesterol HDL Cholesterol Vitamin B12 Urine Creatinine Urine Total Protein Heparin-induced Plt Ab Hep Bs Antibody, Quant Crossmatch 12/21/16 12/21/16 12/21/16 03:17 05:00 05:00 WBC 15.7 H RBC 2.32 L Hgb 6.8 L Hct 20.6 L MCV MCHC RDW 16.3 H Plt Count Lymph % (Auto) 11.5 L [place] % (Auto) 7.4 H [place] # 1.2 H Baso # Seg Neutrophils % 78.7 H Seg Neuts % (Manual) Lymphocytes % (Manual) Monocytes % (Manual) Nucleated RBC % Seg Neutrophils # 12.4 H Seg Neutrophils # Man Lymphocytes # (Manual) Monocytes # (Manual) Percent Retic Haptoglobin PT INR Fibrinogen D-Dimer POC ABG pH POC ABG pCO2 POC ABG pO2 Sodium Potassium Chloride 95.3 L Carbon Dioxide 20 L D BUN 32 H Creatinine 3.7 H Glucose 243 H POC Glucose 428 H Lactic Acid Calcium 8.1 L Phosphorus Magnesium Iron TIBC 193.20 L Transferrin 138 L Total Bilirubin Direct Bilirubin AST ALT Alkaline Phosphatase Lactate Dehydrogenase CK-MB (CK-2) Troponin T C-Reactive Protein Total Protein Albumin Triglycerides Cholesterol HDL Cholesterol Vitamin B12 Urine Creatinine Urine Total Protein Heparin-induced Plt Ab Hep Bs Antibody, Quant Crossmatch 12/21/16 12/21/16 12/21/16 05:40 06:49 08:20 WBC RBC Hgb Hct MCV MCHC RDW Plt Count Lymph % (Auto) [place] % (Auto) [place] # Baso # Seg Neutrophils % Seg Neuts % (Manual) Lymphocytes % (Manual) Monocytes % (Manual) Nucleated RBC % Seg Neutrophils # Seg Neutrophils # Man Lymphocytes # (Manual) Monocytes # (Manual) Percent Retic Haptoglobin PT INR Fibrinogen D-Dimer POC ABG pH POC ABG pCO2 POC ABG pO2 Sodium Potassium Chloride Carbon Dioxide BUN Creatinine Glucose POC Glucose 271 H 236 H 222 H Lactic Acid Calcium Phosphorus Magnesium Iron TIBC Transferrin Total Bilirubin Direct Bilirubin AST ALT Alkaline Phosphatase Lactate Dehydrogenase CK-MB (CK-2) Troponin T C-Reactive Protein Total Protein Albumin Triglycerides Cholesterol HDL Cholesterol Vitamin B12 Urine Creatinine Urine Total Protein Heparin-induced Plt Ab Hep Bs Antibody, Quant Crossmatch 12/21/16 12/21/16 12/21/16 16:28 18:26 21:10 WBC RBC Hgb Hct MCV MCHC RDW Plt Count Lymph % (Auto) [place] % (Auto) [place] # Baso # Seg Neutrophils % Seg Neuts % (Manual) Lymphocytes % (Manual) Monocytes % (Manual) Nucleated RBC % Seg Neutrophils # Seg Neutrophils # Man Lymphocytes # (Manual) Monocytes # (Manual) Percent Retic Haptoglobin PT INR Fibrinogen D-Dimer POC ABG pH POC ABG pCO2 POC ABG pO2 Sodium Potassium Chloride Carbon Dioxide BUN Creatinine Glucose POC Glucose < 40 L 62 L 255 H Lactic Acid Calcium Phosphorus Magnesium Iron TIBC Transferrin Total Bilirubin Direct Bilirubin AST ALT Alkaline Phosphatase Lactate Dehydrogenase CK-MB (CK-2) Troponin T C-Reactive Protein Total Protein Albumin Triglycerides Cholesterol HDL Cholesterol Vitamin B12 Urine Creatinine Urine Total Protein Heparin-induced Plt Ab Hep Bs Antibody, Quant Crossmatch 12/22/16 12/22/16 12/22/16 03:38 06:45 06:45 WBC 17.4 H RBC 2.26 L Hgb 6.6 L Hct 20.5 L MCV MCHC RDW 15.7 H Plt Count Lymph % (Auto) 8.1 L [place] % (Auto) [place] # 0.9 H Baso # 0.2 H Seg Neutrophils % 84.3 H Seg Neuts % (Manual) Lymphocytes % (Manual) Monocytes % (Manual) Nucleated RBC % Seg Neutrophils # 14.6 H Seg Neutrophils # Man Lymphocytes # (Manual) Monocytes # (Manual) Percent Retic Haptoglobin PT INR Fibrinogen D-Dimer POC ABG pH POC ABG pCO2 POC ABG pO2 Sodium Potassium 3.3 L Chloride 95.5 L Carbon Dioxide 20 L BUN Creatinine 2.5 H Glucose 308 H POC Glucose 430 H Lactic Acid Calcium 8.2 L Phosphorus Magnesium Iron TIBC Transferrin Total Bilirubin Direct Bilirubin AST ALT Alkaline Phosphatase Lactate Dehydrogenase CK-MB (CK-2) Troponin T C-Reactive Protein Total Protein Albumin Triglycerides Cholesterol HDL Cholesterol Vitamin B12 Urine Creatinine Urine Total Protein Heparin-induced Plt Ab Hep Bs Antibody, Quant Crossmatch 12/22/16 12/22/16 12/22/16 08:31 12:50 15:46 WBC RBC Hgb Hct MCV MCHC RDW Plt Count Lymph % (Auto) [place] % (Auto) [place] # Baso # Seg Neutrophils % Seg Neuts % (Manual) Lymphocytes % (Manual) Monocytes % (Manual) Nucleated RBC % Seg Neutrophils # Seg Neutrophils # Man Lymphocytes # (Manual) Monocytes # (Manual) Percent Retic Haptoglobin PT INR Fibrinogen D-Dimer POC ABG pH POC ABG pCO2 POC ABG pO2 Sodium Potassium Chloride Carbon Dioxide BUN Creatinine Glucose POC Glucose 306 H 391 H Lactic Acid Calcium Phosphorus Magnesium Iron TIBC Transferrin Total Bilirubin Direct Bilirubin AST ALT Alkaline Phosphatase Lactate Dehydrogenase CK-MB (CK-2) Troponin T C-Reactive Protein Total Protein Albumin Triglycerides Cholesterol HDL Cholesterol Vitamin B12 Urine Creatinine Urine Total Protein Heparin-induced Plt Ab Hep Bs Antibody, Quant Crossmatch See Detail 12/22/16 12/22/16 12/23/16 17:13 21:45 06:42 WBC 17.9 H RBC 2.75 L Hgb 8.1 L Hct 24.8 L MCV MCHC RDW 17.1 H Plt Count Lymph % (Auto) [place] % (Auto) [place] # Baso # Seg Neutrophils % Seg Neuts % (Manual) Lymphocytes % (Manual) Monocytes % (Manual) Nucleated RBC % Seg Neutrophils # Seg Neutrophils # Man Lymphocytes # (Manual) Monocytes # (Manual) Percent Retic Haptoglobin PT INR Fibrinogen D-Dimer POC ABG pH POC ABG pCO2 POC ABG pO2 Sodium Potassium Chloride Carbon Dioxide BUN Creatinine Glucose POC Glucose > 500 H 449 H Lactic Acid Calcium Phosphorus Magnesium Iron TIBC Transferrin Total Bilirubin Direct Bilirubin AST ALT Alkaline Phosphatase Lactate Dehydrogenase CK-MB (CK-2) Troponin T C-Reactive Protein Total Protein Albumin Triglycerides Cholesterol HDL Cholesterol Vitamin B12 Urine Creatinine Urine Total Protein Heparin-induced Plt Ab Hep Bs Antibody, Quant Crossmatch 12/23/16 12/23/16 12/23/16 06:42 07:46 11:33 WBC RBC Hgb Hct MCV MCHC RDW Plt Count Lymph % (Auto) [place] % (Auto) [place] # Baso # Seg Neutrophils % Seg Neuts % (Manual) Lymphocytes % (Manual) Monocytes % (Manual) Nucleated RBC % Seg Neutrophils # Seg Neutrophils # Man Lymphocytes # (Manual) Monocytes # (Manual) Percent Retic Haptoglobin PT INR Fibrinogen D-Dimer POC ABG pH POC ABG pCO2 POC ABG pO2 Sodium Potassium 3.5 L Chloride 94.7 L Carbon Dioxide 19 L BUN 22 H Creatinine 2.9 H Glucose 401 H POC Glucose 449 H 298 H Lactic Acid Calcium 8.3 L Phosphorus Magnesium Iron TIBC Transferrin Total Bilirubin Direct Bilirubin AST ALT Alkaline Phosphatase Lactate Dehydrogenase CK-MB (CK-2) Troponin T C-Reactive Protein Total Protein Albumin Triglycerides Cholesterol HDL Cholesterol Vitamin B12 Urine Creatinine Urine Total Protein Heparin-induced Plt Ab Hep Bs Antibody, Quant Crossmatch 12/23/16 12/23/16 12/24/16 18:24 21:30 05:00 WBC RBC Hgb Hct MCV MCHC RDW Plt Count Lymph % (Auto) [place] % (Auto) [place] # Baso # Seg Neutrophils % Seg Neuts % (Manual) Lymphocytes % (Manual) Monocytes % (Manual) Nucleated RBC % Seg Neutrophils # Seg Neutrophils # Man Lymphocytes # (Manual) Monocytes # (Manual) Percent Retic Haptoglobin PT INR Fibrinogen D-Dimer POC ABG pH POC ABG pCO2 POC ABG pO2 Sodium Potassium 3.1 L Chloride 95.8 L Carbon Dioxide BUN Creatinine 1.8 H Glucose 106 H POC Glucose 177 H 455 H Lactic Acid Calcium Phosphorus Magnesium Iron TIBC Transferrin Total Bilirubin Direct Bilirubin AST ALT Alkaline Phosphatase Lactate Dehydrogenase CK-MB (CK-2) Troponin T C-Reactive Protein Total Protein Albumin Triglycerides Cholesterol HDL Cholesterol Vitamin B12 Urine Creatinine Urine Total Protein Heparin-induced Plt Ab Hep Bs Antibody, Quant Crossmatch 12/24/16 12/24/16 12/24/16 16:11 18:55 20:41 WBC RBC Hgb Hct MCV MCHC RDW Plt Count Lymph % (Auto) [place] % (Auto) [place] # Baso # Seg Neutrophils % Seg Neuts % (Manual) Lymphocytes % (Manual) Monocytes % (Manual) Nucleated RBC % Seg Neutrophils # Seg Neutrophils # Man Lymphocytes # (Manual) Monocytes # (Manual) Percent Retic Haptoglobin PT INR Fibrinogen D-Dimer POC ABG pH POC ABG pCO2 POC ABG pO2 Sodium Potassium Chloride Carbon Dioxide BUN Creatinine Glucose POC Glucose 175 H 148 H 44 L Lactic Acid Calcium Phosphorus Magnesium Iron TIBC Transferrin Total Bilirubin Direct Bilirubin AST ALT Alkaline Phosphatase Lactate Dehydrogenase CK-MB (CK-2) Troponin T C-Reactive Protein Total Protein Albumin Triglycerides Cholesterol HDL Cholesterol Vitamin B12 Urine Creatinine Urine Total Protein Heparin-induced Plt Ab Hep Bs Antibody, Quant Crossmatch 12/24/16 12/25/16 12/25/16 22:21 05:03 07:30 WBC RBC Hgb Hct MCV MCHC RDW Plt Count Lymph % (Auto) [place] % (Auto) [place] # Baso # Seg Neutrophils % Seg Neuts % (Manual) Lymphocytes % (Manual) Monocytes % (Manual) Nucleated RBC % Seg Neutrophils # Seg Neutrophils # Man Lymphocytes # (Manual) Monocytes # (Manual) Percent Retic Haptoglobin PT INR Fibrinogen D-Dimer POC ABG pH POC ABG pCO2 POC ABG pO2 Sodium Potassium 2.9 L* Chloride Carbon Dioxide BUN Creatinine 2.3 H Glucose 142 H POC Glucose 111 H 127 H Lactic Acid Calcium 8.0 L Phosphorus Magnesium Iron TIBC Transferrin Total Bilirubin Direct Bilirubin AST ALT Alkaline Phosphatase Lactate Dehydrogenase CK-MB (CK-2) Troponin T C-Reactive Protein Total Protein Albumin Triglycerides Cholesterol HDL Cholesterol Vitamin B12 Urine Creatinine Urine Total Protein Heparin-induced Plt Ab Hep Bs Antibody, Quant Crossmatch 12/25/16 12/25/16 12/25/16 12:08 16:43 23:30 WBC RBC Hgb Hct MCV MCHC RDW Plt Count Lymph % (Auto) [place] % (Auto) [place] # Baso # Seg Neutrophils % Seg Neuts % (Manual) Lymphocytes % (Manual) Monocytes % (Manual) Nucleated RBC % Seg Neutrophils # Seg Neutrophils # Man Lymphocytes # (Manual) Monocytes # (Manual) Percent Retic Haptoglobin PT INR Fibrinogen D-Dimer POC ABG pH POC ABG pCO2 POC ABG pO2 Sodium Potassium Chloride Carbon Dioxide BUN Creatinine Glucose POC Glucose 154 H 235 H 54 L Lactic Acid Calcium Phosphorus Magnesium Iron TIBC Transferrin Total Bilirubin Direct Bilirubin AST ALT Alkaline Phosphatase Lactate Dehydrogenase CK-MB (CK-2) Troponin T C-Reactive Protein Total Protein Albumin Triglycerides Cholesterol HDL Cholesterol Vitamin B12 Urine Creatinine Urine Total Protein Heparin-induced Plt Ab Hep Bs Antibody, Quant Crossmatch
--- NOTE | 2016-12-26 10:30 | Progress Note ---
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 medical terminologist insulin use: D Qualified Code(s): E10.10 - Type 1 diabetes mellitus with ketoacidosis without coma Plan to address problem: DKA resolved s/p insulin drip, on sliding scale insulin, as per primary team (2) Acute kidney failure with tubular necrosis Current Visit: No Status: Acute Plan to address problem: Renal function reviewed, SCr level was 2.3 today, yesterday's SCr level was 2.3 Continue to hold dialysis, monitoring for renal recovery 24 hour urine collection for creatinine clearance in progress Assess need for HD on daily basis Renally dose medications Obtain daily weight Strict intake and output Renal plan discussed with Dr Smart Continue supportive therapy (3) Anemia Current Visit: Yes Status: Acute Qualifiers: Anemia type: A Iron deficiency anemia type: I Vitamin B12 deficiency anemia type: V Folate deficiency anemia type: F Bone marrow failure anemia type: B Hemolytic anemia type: H Other causes of anemia: O Chronic kidney disease stage: C Plan to address problem: CBC results pending today, follow up results (4) Hypertensive chronic kidney disease Current Visit: Yes Status: Acute Plan to address problem: Continue on current anti-hypertensive regimen Subjective Date of service: 12/26/16 Principal diagnosis: Sepsis; Pneumonia; ASHELY on dialysis; Diabetes Interval history: Patient resting in bed, denies shortness of breath, no complaints voiced. No family at bedside. Objective - Vital Signs Vital signs: Vital Signs - 12hr 12/25/16 12/25/16 12/26/16 23:35 23:40 04:00 Temperature 98.2 F 98.1 F Pulse Rate 101 H Pulse Rate [ 102 H 101 H Right Radial] Respiratory 18 18 Rate Blood Pressure 138/85 121/66 [Right Arm] O2 Sat by Pulse 97 98 Oximetry 12/26/16 12/26/16 05:31 07:30 Temperature 98.3 F Pulse Rate Pulse Rate [ 109 H Right Radial] Respiratory 18 20 Rate Blood Pressure 133/86 [Right Arm] O2 Sat by Pulse 99 Oximetry - General Appearance General appearance: well-developed (no acute distress) EENT: ATNC Neck: no JVD Respiratory: Present: Clear to Ascultation Cardiology: regular, tachycardia, S1S2, other (ACCESS: Right Perm Catheter intact) Gastrointestinal: normoactive bowel sounds, no tenderness, no distended Integumentary: warm and dry Neurologic: alert and oriented x3 Musculoskeletal: other (no edema noted) Psychiatric: mood/affect appropriate, cooperative - Lab 12/23/16 06:42 12/26/16 Unknown Most recent lab results Calcium 8.0 mg/dL (8.4-10.2) L 12/25/16 05:03 Phosphorus 3.70 mg/dL (2.5-4.5) 12/21/16 05:00 Magnesium 1.90 mg/dL (1.7-2.3) 12/11/16 04:30 Urine Creatinine 29.5 mg/dL (0.1-20.0) H 12/04/16 11:25 Urine Sodium 26 mEq/L 12/04/16 11:25 Urine Total Protein 33 mg/dL (5-11.8) H 12/04/16 11:25
[2016-12-26 10:34] LABS: BUN/Creatinine Ratio 5.65; Calcium 8.3 mg/dL (8.4-10.2); Chloride 101.9 mmol/L (98-107); Potassium 3.8 mmol/L (3.6-5.0)
[2016-12-26] MEDS: LOPRESSOR PO SCH ×2 (10:48→21:42)
[2016-12-26] MEDS: PEPCID PO SCH (10:48)
[2016-12-26] MEDS: LOVENOX SUB-Q SCH (10:49)
[2016-12-26 11:17] LABS: Hematocrit 26.5 % (30.3-42.9); Mean Corpuscular HGB Conc 34 % (30-34); Mean Corpuscular Hemoglobin 30 pg (28-32); Mean Corpuscular Volume 90 fl (79-97); Platelet Count 230 K/mm3 (140-440); Red Blood Count 2.95 M/mm3 (3.65-5.03); Red Cell Distribution Width 16.6 % (13.2-15.2); White Blood Count 7.9 K/mm3 (4.5-11.0)
[2016-12-26 12:58] LABS: BUN/Creatinine Ratio 5.65; Calcium 7.7 mg/dL (8.4-10.2); Chloride 104.3 mmol/L (98-107); Phosphorous 2.6 mg/dL (2.5-4.5); Potassium 4.1 mmol/L (3.6-5.0)
--- NOTE | 2016-12-26 17:30 | Progress Note ---
Assessment and Plan Assessment and plan: Cardiac arrest with V. fib - Likely from hyperkalemia, currently patient is stable. Was treated with amiodarone - No recurrence Acute kidney injury secondary to ATN - Nephrology is following.She is going to continue hemodialysis. ASHELY improving. Cr 2.3 for past 3 days. Will need outpatient hemodialysis arranged. Metabolic Acidosis, resolved. Acute hypoxic respiratory failure. Resolved. Now extubated DKA: - resolved - On sliding insulin Diabetes mellitus type 2. Blood glucose fluctuating. Episode of very high glucose and episodes of hypoglycemia. Will decrease Novolin 70/30 down to 6 units bid Acute metabolic encephalopathy, resolved Leukocytosis -DVT prophylaxis:Lovenox Thrombocytopenia - Resolved Acute on chronic anemia of chronic disease, s/p total 3 units PRBC this admission - Hemoglobin is 9.0 today Depression - Psych consulted and recommend outpatient mental health follow up. Disposition - Patient stable for discharge. Awaiting outpatient dialysis to be arranged. History Interval history: No chest pain, No SOB, blood glucose fluctuating Hospitalist Physical - Physical exam Narrative exam: Gen Appearance: No acute distress, HEENT: normocephalic, atraumatic Neck: supple, no JVD Lungs: Clear to auscultation bilaterally, no wheeze. Heart: S1 and S2 regular, no murmurs or gallop Abdomen: Soft non-tender, non-distended, normal bowel sounds Extremity: No edema, clubbing or cyanosis Neuro : Awake, alert,oriented x 3, moves all ext - Constitutional Vitals: Temp Pulse Resp BP Pulse Ox 98.5 F 99 H 20 121/82 99 12/26/16 15:00 12/26/16 15:00 12/26/16 15:00 12/26/16 15:00 12/26/16 07:30 General appearance: Present: no acute distress (resting comfortably) Results - Labs CBC & Chem 7: 12/26/16 Unknown 12/26/16 Unknown Labs: Laboratory Last Values WBC 7.9 K/mm3 (4.5-11.0) 12/26/16 Unknown RBC 2.95 M/mm3 (3.65-5.03) L 12/26/16 Unknown Hgb 9.0 gm/dl (10.1-14.3) L 12/26/16 Unknown Hct 26.5 % (30.3-42.9) L 12/26/16 Unknown MCV 90 fl (79-97) 12/26/16 Unknown MCH 30 pg (28-32) 12/26/16 Unknown MCHC 34 % (30-34) 12/26/16 Unknown RDW 16.6 % (13.2-15.2) H 12/26/16 Unknown Plt Count 230 K/mm3 (140-440) 12/26/16 Unknown Lymph % (Auto) 8.1 % (13.4-35.0) L 12/22/16 06:45 Hunt % (Auto) 5.3 % (0.0-7.3) 12/22/16 06:45 Eos % (Auto) 1.4 % (0.0-4.3) 12/22/16 06:45 Baso % (Auto) 0.9 % (0.0-1.8) 12/22/16 06:45 Lymph # 1.4 K/mm3 (1.2-5.4) 12/22/16 06:45 Hunt # 0.9 K/mm3 (0.0-0.8) H 12/22/16 06:45 Eos # 0.2 K/mm3 (0.0-0.4) 12/22/16 06:45 Baso # 0.2 K/mm3 (0.0-0.1) H 12/22/16 06:45 Add Manual Diff Complete 12/13/16 07:49 Total Counted 100 12/13/16 07:49 Seg Neutrophils % 84.3 % (40.0-70.0) H 12/22/16 06:45 Seg Neuts % (Manual) 89.0 % (40.0-70.0) H 12/13/16 07:49 Band Neutrophils % 1.0 % 12/13/16 07:49 Lymphocytes % (Manual) 7.0 % (13.4-35.0) L 12/13/16 07:49 Reactive Lymphs % (Man) 0 % 12/13/16 07:49 Monocytes % (Manual) 3.0 % (0.0-7.3) 12/13/16 07:49 Eosinophils % (Manual) 0 % (0.0-4.3) 12/13/16 07:49 Basophils % (Manual) 0 % (0.0-1.8) 12/13/16 07:49 Metamyelocytes % 0 % 12/13/16 07:49 Myelocytes % 0 % 12/13/16 07:49 Promyelocytes % 0 % 12/13/16 07:49 Blast Cells % 0 % 12/13/16 07:49 Nucleated RBC % Not Reportable 12/13/16 07:49 Seg Neutrophils # 14.6 K/mm3 (1.8-7.7) H 12/22/16 06:45 Seg Neutrophils # Man 21.4 K/mm3 (1.8-7.7) H 12/13/16 07:49 Band Neutrophils # 0.2 K/mm3 12/13/16 07:49 Lymphocytes # (Manual) 1.7 K/mm3 (1.2-5.4) 12/13/16 07:49 Abs React Lymphs (Man) 0.0 K/mm3 12/13/16 07:49 Monocytes # (Manual) 0.7 K/mm3 (0.0-0.8) 12/13/16 07:49 Eosinophils # (Manual) 0.0 K/mm3 (0.0-0.4) 12/13/16 07:49 Basophils # (Manual) 0.0 K/mm3 (0.0-0.1) 12/13/16 07:49 Metamyelocytes # 0.0 K/mm3 12/13/16 07:49 Myelocytes # 0.0 K/mm3 12/13/16 07:49 Promyelocytes # 0.0 K/mm3 12/13/16 07:49 Blast Cells # 0.0 K/mm3 12/13/16 07:49 WBC Morphology Not Reportable 12/13/16 07:49 Hypersegmented Neuts Not Reportable 12/13/16 07:49 Hyposegmented Neuts Not Reportable 12/13/16 07:49 Hypogranular Neuts Not Reportable 12/13/16 07:49 Smudge Cells Not Reportable 12/13/16 07:49 Toxic Granulation Not Reportable 12/13/16 07:49 Toxic Vacuolation Not Reportable 12/13/16 07:49 Dohle Bodies Not Reportable 12/13/16 07:49 Pelger-Huet Anomaly Not Reportable 12/13/16 07:49 Mary Rods Not Reportable 12/13/16 07:49 Platelet Estimate Cons 12/13/16 07:49 Clumped Platelets Not Reportable 12/13/16 07:49 Plt Clumps, EDTA Not Reportable 12/13/16 07:49 Large Platelets Rare 12/13/16 07:49 Giant Platelets Not Reportable 12/13/16 07:49 Platelet Satelliting Not Reportable 12/13/16 07:49 Plt Morphology Comment Not Reportable 12/13/16 07:49 RBC Morphology Not Reportable 12/13/16 07:49 Dimorphic RBCs Not Reportable 12/13/16 07:49 Polychromasia Not Reportable 12/13/16 07:49 Hypochromasia 1+ 12/13/16 07:49 Poikilocytosis Not Reportable 12/13/16 07:49 Anisocytosis 1+ 12/13/16 07:49 Microcytosis Not Reportable 12/13/16 07:49 Macrocytosis Not Reportable 12/13/16 07:49 Spherocytes Not Reportable 12/13/16 07:49 Pappenheimer Bodies Not Reportable 12/13/16 07:49 Sickle Cells Not Reportable 12/13/16 07:49 Target Cells Few 12/13/16 07:49 Tear Drop Cells Not Reportable 12/13/16 07:49 Ovalocytes Not Reportable 12/13/16 07:49 Helmet Cells Not Reportable 12/13/16 07:49 [place] Bodies Not Reportable 12/13/16 07:49 [place] Rings Not Reportable 12/13/16 07:49 [place] Cells Not Reportable 12/13/16 07:49 Bite Cells Not Reportable 12/13/16 07:49 Crenated Cell Not Reportable 12/13/16 07:49 Elliptocytes Not Reportable 12/13/16 07:49 Acanthocytes (Spur) Not Reportable 12/13/16 07:49 Rouleaux Not Reportable 12/13/16 07:49 Hemoglobin C Crystals Not Reportable 12/13/16 07:49 Schistocytes Not Reportable 12/13/16 07:49 Malaria parasites Not Reportable 12/13/16 07:49 Percent Retic 0.23 % (0.78-2.58) L 12/09/16 11:29 Michael Bodies Not Reportable 12/13/16 07:49 Haptoglobin 271 mg/dL (43-212) H 12/08/16 21:30 Hem Pathologist Commnt No 12/13/16 07:49 PT 15.3 Sec. (12.2-14.9) H 12/08/16 19:00 INR 1.22 (0.87-1.13) H 12/08/16 19:00 APTT 36.2 Sec. (24.2-36.6) 12/08/16 19:00 Fibrinogen 563 mg/dl (211-480) H 12/08/16 19:00 D-Dimer 5507.36 ng/mlDDU (0-234) H 12/08/16 19:00 Heparin Anti-Xa, Unfract Negative (Negative) 12/09/16 13:27 POC ABG pH 7.326 (7.35-7.45) L 12/09/16 12:02 POC ABG pCO2 37.7 (35-45) 12/09/16 12:02 POC ABG pO2 115 (80-105) H 12/09/16 12:02 POC ABG HCO3 19.7 12/09/16 12:02 POC ABG Total CO2 21 12/09/16 12:02 POC ABG O2 Sat 98 12/09/16 12:02 POC ABG Base Excess -6 12/09/16 12:02 FiO2 30 % 12/09/16 12:02 Sodium 142 mmol/L (137-145) 12/26/16 Unknown Potassium 4.1 mmol/L (3.6-5.0) 12/26/16 Unknown Chloride 104.3 mmol/L (98-107) 12/26/16 Unknown Carbon Dioxide 25 mmol/L (22-30) 12/26/16 Unknown Anion Gap 17 mmol/L 12/26/16 Unknown BUN 13 mg/dL (7-17) 12/26/16 Unknown Creatinine 2.3 mg/dL (0.7-1.2) H 12/26/16 Unknown Estimated GFR 28 ml/min 12/26/16 Unknown BUN/Creatinine Ratio 5.65 % 12/26/16 Unknown Glucose 157 mg/dL (65-100) H 12/26/16 Unknown POC Glucose 310 (70-105) H 12/26/16 16:14 Lactic Acid 6.90 mmol/L (0.7-2.0) H* 12/07/16 07:30 Calcium 7.7 mg/dL (8.4-10.2) L 12/26/16 Unknown Phosphorus 2.60 mg/dL (2.5-4.5) 12/26/16 Unknown Magnesium 1.50 mg/dL (1.7-2.3) L 12/26/16 12:19 Iron 66 ug/dL (37-170) 12/21/16 05:00 TIBC 193.20 mcg/dL (250-450) L 12/21/16 05:00 Transferrin 138 mg/dl (192-382) L 12/21/16 05:00 Ferritin 321.4 ng/mL (13.0-400.0) 12/21/16 05:00 Total Bilirubin 1.40 mg/dL (0.1-1.2) H 12/07/16 21:35 Direct Bilirubin 0.9 mg/dL (0-0.2) H 12/07/16 21:35 Indirect Bilirubin 0.5 mg/dL 12/07/16 21:35 AST 94 units/L (5-40) H 12/07/16 21:35 ALT 142 units/L (7-56) H 12/07/16 21:35 Alkaline Phosphatase 249 units/L (35-129) H 12/07/16 21:35 Lactate Dehydrogenase 382 units/L (91-180) H 12/08/16 19:00 Total Creatine Kinase 123 units/L (30-135) 12/04/16 09:55 CK-MB (CK-2) 4.6 ng/mL (0.0-4.0) H 12/04/16 09:55 CK-MB (CK-2) Rel Index 3.7 (0-4) 12/04/16 09:55 Troponin T 0.140 ng/mL (0.00-0.029) H* D 12/04/16 09:55 C-Reactive Protein 39.40 mg/dL (0.00-1.30) H 12/07/16 06:00 Total Protein 4.6 g/dL (6.3-8.2) L D 12/07/16 21:35 Albumin 2.1 g/dL (3.9-5) L 12/07/16 21:35 Albumin/Globulin Ratio 0.8 % 12/07/16 21:35 Triglycerides 570 mg/dL (2-149) H 12/04/16 07:55 Cholesterol 221 mg/dL (50-199) H 12/04/16 07:55 LDL Cholesterol Direct TNR 12/04/16 07:55 HDL Cholesterol 37 mg/dL (40-59) L 12/04/16 07:55 Cholesterol/HDL Ratio 5.97 % 12/04/16 07:55 Serotonin Release Assay See scanned report 12/09/16 13:27 Vitamin B12 > 2000 pg/mL (211-911) H 12/09/16 13:27 Folate 8.10 ng/mL (7.3-26.0) 12/09/16 13:27 TSH 1.600 mlU/mL (0.270-4.200) 12/03/16 23:20 Urine Color Yellow (Yellow) 12/04/16 11:25 Urine Turbidity Slightly-cloudy (Clear) 12/04/16 11:25 Urine pH 5.0 (5.0-7.0) 12/04/16 11:25 Ur Specific [place] 1.018 (1.003-1.030) 12/04/16 11:25 Urine Protein 30 mg/dl mg/dL (Negative) 12/04/16 11:25 Urine Glucose (UA) >=500 mg/dL (Negative) 12/04/16 11:25 Urine Ketones Tr mg/dL (Negative) 12/04/16 11:25 Urine Blood Sm (Negative) 12/04/16 11:25 Urine Nitrite Neg (Negative) 12/04/16 11:25 Urine Bilirubin Neg (Negative) 12/04/16 11:25 Urine Urobilinogen < 2.0 mg/dL (<2.0) 12/04/16 11:25 Ur Leukocyte Esterase Neg (Negative) 12/04/16 11:25 Urine WBC (Auto) 4.0 /HPF (0.0-6.0) 12/04/16 11:25 Urine RBC (Auto) 2.0 /HPF (0.0-6.0) 12/04/16 11:25 U Epithel Cells (Auto) < 1.0 /HPF (0-13.0) 12/04/16 11:25 Urine Mucus Few /HPF 12/04/16 11:25 Urine Osmolality 419 Mosm/kg 12/04/16 11:25 Urine Creatinine 29.5 mg/dL (0.1-20.0) H 12/04/16 11:25 Protein/Creatinin Ratio 1.12 12/04/16 11:25 Urine Sodium 26 mEq/L 12/04/16 11:25 Urine Total Protein 33 mg/dL (5-11.8) H 12/04/16 11:25 Urine Opiates Screen Presumptive negative 12/04/16 11:25 Urine Methadone Screen Presumptive negative 12/04/16 11:25 Ur Barbiturates Screen Presumptive negative 12/04/16 11:25 Ur Phencyclidine Scrn Presumptive negative 12/04/16 11:25 Ur Amphetamines Screen Presumptive negative 12/04/16 11:25 U Benzodiazepines Scrn Presumptive negative 12/04/16 11:25 Urine Cocaine Screen Presumptive negative 12/04/16 11:25 U Marijuana (THC) Screen Presumptive positive 12/04/16 11:25 Drugs of Abuse Note Disclamer 12/04/16 11:25 Heparin-induced Plt Ab Weak positive (Negative) H 12/09/16 13:27 UF Heparin High Dose 0 % Release 12/09/16 13:27 ADRIENNE UFH Low Dose 0.1 0 % Release 12/09/16 13:27 ADRIENNE UFH Low Dose 0.5 0 % Release 12/09/16 13:27 Hep Bs Antigen Non-reactive (Negative) 12/09/16 13:27 Hep Bs Antibody, Quant <5 mIU/mL (>=10) L 12/09/16 13:27 Hep B Core Total Ab Nonreactive (Nonreactive) 12/09/16 13:27 Hepatitis C Antibody Non-reactive (NonReactive) 12/09/16 13:27 HIV 1&2 Antibody Rapid Non react (Non React) 12/09/16 13:27 HIV P24 Antigen Non react (Non React) 12/09/16 13:27 Schistocytes Smear None seen 12/09/16 11:29 Blood Type O POSITIVE 12/22/16 15:46 Antibody Screen TNR 12/22/16 15:46 ISAIAH Antibody Screen Negative 12/22/16 15:46 Crossmatch See Detail 12/22/16 15:46
[2016-12-27] MEDS: NOVOLOG SUB-Q SCH ×4 (07:55→21:50)
[2016-12-27] MEDS: ZOFRAN IV PRN (08:06)
[2016-12-27] MEDS: PERCOCET 5/325 PO PRN ×3 (08:17→17:08)
--- NOTE | 2016-12-27 09:25 | Progress Note ---
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: D Qualified Code(s): E10.10 - Type 1 diabetes mellitus with ketoacidosis without coma Plan to address problem: DKA resolved s/p insulin drip, on sliding scale insulin, as per primary team (2) Acute kidney failure with tubular necrosis Current Visit: No Status: Acute Plan to address problem: Labs pending today Continue to hold dialysis for now, monitoring for renal recovery 24 hour urine collection for creatinine clearance reviewed, showed CrCl of 12, however, possible inadequate urine collection Assess need for HD on daily basis Renally dose medications Obtain daily weight Strict intake and output Renal plan discussed with Dr Smart Continue supportive therapy (3) Anemia Current Visit: Yes Status: Acute Qualifiers: Anemia type: A Iron deficiency anemia type: I Vitamin B12 deficiency anemia type: V Folate deficiency anemia type: F Bone marrow failure anemia type: B Hemolytic anemia type: H Other causes of anemia: O Chronic kidney disease stage: C Plan to address problem: CBC results pending today, yesterday's Hgb level was 9.0, follow up results (4) Hypertensive chronic kidney disease Current Visit: Yes Status: Acute Plan to address problem: Continue on current anti-hypertensive regimen Subjective Principal diagnosis: Sepsis; Pneumonia; ASHELY on dialysis; Diabetes Interval history: Patient reports having nausea today, denies shortness of breath. No family at bedside. Objective - Vital Signs Vital signs: Vital Signs - 12hr 12/26/16 12/26/16 12/27/16 21:41 21:42 00:00 Temperature 98.3 F Pulse Rate 105 H Pulse Rate [ 99 H Right Radial] Respiratory 18 18 Rate Blood Pressure 128/85 Blood Pressure 132/84 [Right Arm] O2 Sat by Pulse 97 Oximetry 12/27/16 12/27/16 04:12 05:23 Temperature 98.4 F Pulse Rate 105 H Pulse Rate [ 96 H Right Radial] Respiratory 18 Rate Blood Pressure Blood Pressure 154/99 [Right Arm] O2 Sat by Pulse 99 Oximetry - General Appearance General appearance: well-developed, well-nourished (no acute distress) EENT: ATNC Neck: no JVD Respiratory: Present: Clear to Ascultation Cardiology: regular, S1S2, other (ACCESS: Right Perm Catheter intact) Gastrointestinal: normoactive bowel sounds, no tenderness Integumentary: ulcer (left eye skin ulcer noted) Neurologic: alert and oriented x3 Musculoskeletal: other (trace edema to both lower extremities) Psychiatric: mood/affect appropriate, cooperative - Lab 12/26/16 Unknown 12/26/16 Unknown Most recent lab results Calcium 7.7 mg/dL (8.4-10.2) L 12/26/16 Unknown Phosphorus 2.60 mg/dL (2.5-4.5) 12/26/16 Unknown Magnesium 1.50 mg/dL (1.7-2.3) L 12/26/16 12:19 Urine Creatinine 239.9 mg/dL (0.1-20.0) H 12/24/16 00:00 Urine Sodium 26 mEq/L 12/04/16 11:25 Urine Total Protein 33 mg/dL (5-11.8) H 12/04/16 11:25
--- NOTE | 2016-12-27 10:03 | Progress Note ---
Assessment and Plan Assessment and plan: The patient is a 46-year-old woman with history of insulin-dependent diabetes mellitus, hypertension, recent SAH and dyslipidemia who presented with DKA, AMS and STEMI with V. fib arrest requiring IV amiodarone suppression. she was intubated and subsequently extubated. she was treated with IV insulin drip for documented DKA without ketones documentation but she was acidotic on admission and pressors but subsequently weaned off and transferred to the medical floor. Uncontrolled DM -Labile -Adjust insulin to 13 units BID. Monitor FOR Hypoglycemia Severe Metabolic acidosis For dialysis today, Neprhology following Cardiac arrest with PEA arrest-->V. fib/?torsades was shocked twice - Likely from hyperkalemia, currently patient is stable. Was treated with amiodarone -Echo EF 40-45% - No recurrence Acute kidney injury secondary to ATN - Nephrology is following. HD Held and being reassessed daily. ASHELY improving. Cr 2.3 for past 3 days. Will need outpatient hemodialysis arranged. Metabolic Acidosis, resolved. Acute hypoxic respiratory failure. Resolved. Now extubated Spesis secondary to Possible aspiration penumonitis. Inital BCX with coagulase negative staff, 1/2 bottles ?contaminate Repeat cultures, no growth. DKA: - resolved - On sliding insulin Acute metabolic encephalopathy, resolved Nstemi Type 2- Likely from Shock. Moderate protein calorie malnutrition Thrombocytopenia - Resolved Acute on chronic anemia of chronic disease, s/p total 3 units PRBC this admission - Hemoglobin is 9.0 today Depression - Psych consulted and recommend outpatient mental health follow up. Disposition - Patient stable for discharge. Awaiting outpatient dialysis to be arranged. -DVT prophylaxis: SCDs only due to recent SAH History Interval history: Patient seen and examined, denies any new complaints, Nursing staff reports liable Blood glucose. Hospitalist Physical - Physical exam Narrative exam: VITAL SIGNS: Reviewed. GENERAL: The patient appeared normally developed, cachetic. Vital signs as documented. HEAD: No signs of head trauma. temporal wasting noted EYES: Pupils are equal. Extraocular motions intact. EARS: Hearing grossly intact. MOUTH: Oropharynx is normal. NECK: No adenopathy, no JVD. CHEST: Chest with diminshed breath sounds bilaterally. No wheezes, rales, or rhonchi. (access Right Perm Catheter intact) CARDIAC: Regular rate and rhythm. S1 and S2, without murmurs, gallops, or rubs. VASCULAR: Trace Edema. Peripheral pulses normal and equal in all extremities. ABDOMEN: Soft, without detectable tenderness. No sign of distention. No rebound or guarding, and no masses palpated. Bowel Sounds normal. MUSCULOSKELETAL: Good range of motion of all major joints. Extremities without clubbing, cyanosis. Trace edema. NEUROLOGIC EXAM: Alert and oriented x 3. No focal sensory or strength deficits. Speech normal. Follows commands. PSYCHIATRIC: Mood normal. SKIN: No rash or lesions. - Constitutional Vitals: Temp Pulse Resp BP Pulse Ox 97.8 F 97 H 20 152/89 99 12/27/16 09:31 12/27/16 09:31 12/27/16 09:31 12/27/16 09:31 12/27/16 09:31 General appearance: Present: no acute distress (resting comfortably) Results - Labs CBC & Chem 7: 12/26/16 Unknown 12/26/16 Unknown Labs: Laboratory Last Values WBC 7.9 K/mm3 (4.5-11.0) 12/26/16 Unknown RBC 2.95 M/mm3 (3.65-5.03) L 12/26/16 Unknown Hgb 9.0 gm/dl (10.1-14.3) L 12/26/16 Unknown Hct 26.5 % (30.3-42.9) L 12/26/16 Unknown MCV 90 fl (79-97) 12/26/16 Unknown MCH 30 pg (28-32) 12/26/16 Unknown MCHC 34 % (30-34) 12/26/16 Unknown RDW 16.6 % (13.2-15.2) H 12/26/16 Unknown Plt Count 230 K/mm3 (140-440) 12/26/16 Unknown Lymph % (Auto) 8.1 % (13.4-35.0) L 12/22/16 06:45 Porter % (Auto) 5.3 % (0.0-7.3) 12/22/16 06:45 Eos % (Auto) 1.4 % (0.0-4.3) 12/22/16 06:45 Baso % (Auto) 0.9 % (0.0-1.8) 12/22/16 06:45 Lymph # 1.4 K/mm3 (1.2-5.4) 12/22/16 06:45 Porter # 0.9 K/mm3 (0.0-0.8) H 12/22/16 06:45 Eos # 0.2 K/mm3 (0.0-0.4) 12/22/16 06:45 Baso # 0.2 K/mm3 (0.0-0.1) H 12/22/16 06:45 Add Manual Diff Complete 12/13/16 07:49 Total Counted 100 12/13/16 07:49 Seg Neutrophils % 84.3 % (40.0-70.0) H 12/22/16 06:45 Seg Neuts % (Manual) 89.0 % (40.0-70.0) H 12/13/16 07:49 Band Neutrophils % 1.0 % 12/13/16 07:49 Lymphocytes % (Manual) 7.0 % (13.4-35.0) L 12/13/16 07:49 Reactive Lymphs % (Man) 0 % 12/13/16 07:49 Monocytes % (Manual) 3.0 % (0.0-7.3) 12/13/16 07:49 Eosinophils % (Manual) 0 % (0.0-4.3) 12/13/16 07:49 Basophils % (Manual) 0 % (0.0-1.8) 12/13/16 07:49 Metamyelocytes % 0 % 12/13/16 07:49 Myelocytes % 0 % 12/13/16 07:49 Promyelocytes % 0 % 12/13/16 07:49 Blast Cells % 0 % 12/13/16 07:49 Nucleated RBC % Not Reportable 12/13/16 07:49 Seg Neutrophils # 14.6 K/mm3 (1.8-7.7) H 12/22/16 06:45 Seg Neutrophils # Man 21.4 K/mm3 (1.8-7.7) H 12/13/16 07:49 Band Neutrophils # 0.2 K/mm3 12/13/16 07:49 Lymphocytes # (Manual) 1.7 K/mm3 (1.2-5.4) 12/13/16 07:49 Abs React Lymphs (Man) 0.0 K/mm3 12/13/16 07:49 Monocytes # (Manual) 0.7 K/mm3 (0.0-0.8) 12/13/16 07:49 Eosinophils # (Manual) 0.0 K/mm3 (0.0-0.4) 12/13/16 07:49 Basophils # (Manual) 0.0 K/mm3 (0.0-0.1) 12/13/16 07:49 Metamyelocytes # 0.0 K/mm3 12/13/16 07:49 Myelocytes # 0.0 K/mm3 12/13/16 07:49 Promyelocytes # 0.0 K/mm3 12/13/16 07:49 Blast Cells # 0.0 K/mm3 12/13/16 07:49 WBC Morphology Not Reportable 12/13/16 07:49 Hypersegmented Neuts Not Reportable 12/13/16 07:49 Hyposegmented Neuts Not Reportable 12/13/16 07:49 Hypogranular Neuts Not Reportable 12/13/16 07:49 Smudge Cells Not Reportable 12/13/16 07:49 Toxic Granulation Not Reportable 12/13/16 07:49 Toxic Vacuolation Not Reportable 12/13/16 07:49 Dohle Bodies Not Reportable 12/13/16 07:49 Pelger-Huet Anomaly Not Reportable 12/13/16 07:49 Mary Rods Not Reportable 12/13/16 07:49 Platelet Estimate Cons 12/13/16 07:49 Clumped Platelets Not Reportable 12/13/16 07:49 Plt Clumps, EDTA Not Reportable 12/13/16 07:49 Large Platelets Rare 12/13/16 07:49 Giant Platelets Not Reportable 12/13/16 07:49 Platelet Satelliting Not Reportable 12/13/16 07:49 Plt Morphology Comment Not Reportable 12/13/16 07:49 RBC Morphology Not Reportable 12/13/16 07:49 Dimorphic RBCs Not Reportable 12/13/16 07:49 Polychromasia Not Reportable 12/13/16 07:49 Hypochromasia 1+ 12/13/16 07:49 Poikilocytosis Not Reportable 12/13/16 07:49 Anisocytosis 1+ 12/13/16 07:49 Microcytosis Not Reportable 12/13/16 07:49 Macrocytosis Not Reportable 12/13/16 07:49 Spherocytes Not Reportable 12/13/16 07:49 Pappenheimer Bodies Not Reportable 12/13/16 07:49 Sickle Cells Not Reportable 12/13/16 07:49 Target Cells Few 12/13/16 07:49 Tear Drop Cells Not Reportable 12/13/16 07:49 Ovalocytes Not Reportable 12/13/16 07:49 Helmet Cells Not Reportable 12/13/16 07:49 [employer] Bodies Not Reportable 12/13/16 07:49 [place] Rings Not Reportable 12/13/16 07:49 Jerri Cells Not Reportable 12/13/16 07:49 Bite Cells Not Reportable 12/13/16 07:49 Crenated Cell Not Reportable 12/13/16 07:49 Elliptocytes Not Reportable 12/13/16 07:49 Acanthocytes (Spur) Not Reportable 12/13/16 07:49 Rouleaux Not Reportable 12/13/16 07:49 Hemoglobin C Crystals Not Reportable 12/13/16 07:49 Schistocytes Not Reportable 12/13/16 07:49 Malaria parasites Not Reportable 12/13/16 07:49 Percent Retic 0.23 % (0.78-2.58) L 12/09/16 11:29 Michael Bodies Not Reportable 12/13/16 07:49 Haptoglobin 271 mg/dL (43-212) H 12/08/16 21:30 Hem Pathologist Commnt No 12/13/16 07:49 PT 15.3 Sec. (12.2-14.9) H 12/08/16 19:00 INR 1.22 (0.87-1.13) H 12/08/16 19:00 APTT 36.2 Sec. (24.2-36.6) 12/08/16 19:00 Fibrinogen 563 mg/dl (211-480) H 12/08/16 19:00 D-Dimer 5507.36 ng/mlDDU (0-234) H 12/08/16 19:00 Heparin Anti-Xa, Unfract Negative (Negative) 12/09/16 13:27 POC ABG pH 7.326 (7.35-7.45) L 12/09/16 12:02 POC ABG pCO2 37.7 (35-45) 12/09/16 12:02 POC ABG pO2 115 (80-105) H 12/09/16 12:02 POC ABG HCO3 19.7 12/09/16 12:02 POC ABG Total CO2 21 12/09/16 12:02 POC ABG O2 Sat 98 12/09/16 12:02 POC ABG Base Excess -6 12/09/16 12:02 FiO2 30 % 12/09/16 12:02 Sodium 142 mmol/L (137-145) 12/26/16 Unknown Potassium 4.1 mmol/L (3.6-5.0) 12/26/16 Unknown Chloride 104.3 mmol/L (98-107) 12/26/16 Unknown Carbon Dioxide 25 mmol/L (22-30) 12/26/16 Unknown Anion Gap 17 mmol/L 12/26/16 Unknown BUN 13 mg/dL (7-17) 12/26/16 Unknown Creatinine 2.3 mg/dL (0.7-1.2) H 12/26/16 Unknown Estimated GFR 28 ml/min 12/26/16 Unknown BUN/Creatinine Ratio 5.65 % 12/26/16 Unknown Glucose 157 mg/dL (65-100) H 12/26/16 Unknown POC Glucose 406 (70-105) H 12/27/16 04:47 Lactic Acid 6.90 mmol/L (0.7-2.0) H* 12/07/16 07:30 Calcium 7.7 mg/dL (8.4-10.2) L 12/26/16 Unknown Phosphorus 2.60 mg/dL (2.5-4.5) 12/26/16 Unknown Magnesium 1.50 mg/dL (1.7-2.3) L 12/26/16 12:19 Iron 66 ug/dL (37-170) 12/21/16 05:00 TIBC 193.20 mcg/dL (250-450) L 12/21/16 05:00 Transferrin 138 mg/dl (192-382) L 12/21/16 05:00 Ferritin 321.4 ng/mL (13.0-400.0) 12/21/16 05:00 Total Bilirubin 1.40 mg/dL (0.1-1.2) H 12/07/16 21:35 Direct Bilirubin 0.9 mg/dL (0-0.2) H 12/07/16 21:35 Indirect Bilirubin 0.5 mg/dL 12/07/16 21:35 AST 94 units/L (5-40) H 12/07/16 21:35 ALT 142 units/L (7-56) H 12/07/16 21:35 Alkaline Phosphatase 249 units/L (35-129) H 12/07/16 21:35 Lactate Dehydrogenase 382 units/L (91-180) H 12/08/16 19:00 Total Creatine Kinase 123 units/L (30-135) 12/04/16 09:55 CK-MB (CK-2) 4.6 ng/mL (0.0-4.0) H 12/04/16 09:55 CK-MB (CK-2) Rel Index 3.7 (0-4) 12/04/16 09:55 Troponin T 0.140 ng/mL (0.00-0.029) H* D 12/04/16 09:55 C-Reactive Protein 39.40 mg/dL (0.00-1.30) H 12/07/16 06:00 Total Protein 4.6 g/dL (6.3-8.2) L D 12/07/16 21:35 Albumin 2.1 g/dL (3.9-5) L 12/07/16 21:35 Albumin/Globulin Ratio 0.8 % 12/07/16 21:35 Triglycerides 570 mg/dL (2-149) H 12/04/16 07:55 Cholesterol 221 mg/dL (50-199) H 12/04/16 07:55 LDL Cholesterol Direct TNR 12/04/16 07:55 HDL Cholesterol 37 mg/dL (40-59) L 12/04/16 07:55 Cholesterol/HDL Ratio 5.97 % 12/04/16 07:55 Serotonin Release Assay See scanned report 12/09/16 13:27 Vitamin B12 > 2000 pg/mL (211-911) H 12/09/16 13:27 Folate 8.10 ng/mL (7.3-26.0) 12/09/16 13:27 TSH 1.600 mlU/mL (0.270-4.200) 12/03/16 23:20 Urine Color Yellow (Yellow) 12/04/16 11:25 Urine Turbidity Slightly-cloudy (Clear) 12/04/16 11:25 Urine pH 5.0 (5.0-7.0) 12/04/16 11:25 Ur Specific [place]on 1.018 (1.003-1.030) 12/04/16 11:25 Urine Protein 30 mg/dl mg/dL (Negative) 12/04/16 11:25 Urine Glucose (UA) >=500 mg/dL (Negative) 12/04/16 11:25 Urine Ketones Tr mg/dL (Negative) 12/04/16 11:25 Urine Blood Sm (Negative) 12/04/16 11:25 Urine Nitrite Neg (Negative) 12/04/16 11:25 Urine Bilirubin Neg (Negative) 12/04/16 11:25 Urine Urobilinogen < 2.0 mg/dL (<2.0) 12/04/16 11:25 Ur Leukocyte Esterase Neg (Negative) 12/04/16 11:25 Urine WBC (Auto) 4.0 /HPF (0.0-6.0) 12/04/16 11:25 Urine RBC (Auto) 2.0 /HPF (0.0-6.0) 12/04/16 11:25 U Epithel Cells (Auto) < 1.0 /HPF (0-13.0) 12/04/16 11:25 Urine Mucus Few /HPF 12/04/16 11:25 Urine Osmolality 419 Mosm/kg 12/04/16 11:25 Urine Total Volume 200 12/24/16 00:00 Urine Creatinine 239.9 mg/dL (0.1-20.0) H 12/24/16 00:00 Height (in) 64.0 inches 12/24/16 00:00 Weight (lb) 114.0 lbs 12/24/16 00:00 Creatinine Clearance 12 12/24/16 00:00 Protein/Creatinin Ratio 1.12 12/04/16 11:25 Urine Sodium 26 mEq/L 12/04/16 11:25 Urine Total Protein 33 mg/dL (5-11.8) H 12/04/16 11:25 Urine Opiates Screen Presumptive negative 12/04/16 11:25 Urine Methadone Screen Presumptive negative 12/04/16 11:25 Ur Barbiturates Screen Presumptive negative 12/04/16 11:25 Ur Phencyclidine Scrn Presumptive negative 12/04/16 11:25 Ur Amphetamines Screen Presumptive negative 12/04/16 11:25 U Benzodiazepines Scrn Presumptive negative 12/04/16 11:25 Urine Cocaine Screen Presumptive negative 12/04/16 11:25 U Marijuana (THC) Screen Presumptive positive 12/04/16 11:25 Drugs of Abuse Note Disclamer 12/04/16 11:25 Heparin-induced Plt Ab Weak positive (Negative) H 12/09/16 13:27 UF Heparin High Dose 0 % Release 12/09/16 13:27 ADRIENNE UFH Low Dose 0.1 0 % Release 12/09/16 13:27 ADRIENNE UFH Low Dose 0.5 0 % Release 12/09/16 13:27 Hep Bs Antigen Non-reactive (Negative) 12/09/16 13:27 Hep Bs Antibody, Quant <5 mIU/mL (>=10) L 12/09/16 13:27 Hep B Core Total Ab Nonreactive (Nonreactive) 12/09/16 13:27 Hepatitis C Antibody Non-reactive (NonReactive) 12/09/16 13:27 HIV 1&2 Antibody Rapid Non react (Non React) 12/09/16 13:27 HIV P24 Antigen Non react (Non React) 12/09/16 13:27 Schistocytes Smear None seen 12/09/16 11:29 Blood Type O POSITIVE 12/22/16 15:46 Antibody Screen TNR 12/22/16 15:46 ISAIAH Antibody Screen Negative 12/22/16 15:46 Crossmatch See Detail 12/22/16 15:46
[2016-12-27] MEDS: LOVENOX SUB-Q SCH (11:06)
[2016-12-27] MEDS: PEPCID PO SCH (11:18)
[2016-12-27] MEDS: LOPRESSOR PO SCH ×2 (11:18→21:49)
[2016-12-27] MEDS: BENADRYL PO PRN ×2 (11:18→17:08)
--- NOTE | 2016-12-27 16:04 | Progress Note ---
Assessment and Plan - Patient Problems (1) Pulmonary infiltrate in right lung on chest x-ray Current Visit: Yes Status: Acute (2) DKA (diabetic ketoacidoses) Current Visit: Yes Status: Acute Qualifiers: Diabetes mellitus type: type 1 Diabetes mellitus complication detail: without coma Diabetes mellitus prison insulin use: D Qualified Code(s): E10.10 - Type 1 diabetes mellitus with ketoacidosis without coma (3) Metabolic encephalopathy Current Visit: Yes Status: Acute (4) Hypertensive chronic kidney disease Current Visit: Yes Status: Acute Subjective Principal diagnosis: Sepsis; Pneumonia; ASHELY on dialysis; Diabetes Interval history: No acute overnight events. No fevers or chills. No chest pain or shortness of breath Seen and examined. Vitals, labs, medications, chart reviewed. Assessment and Plan Assessment and plan: The patient is a 46-year-old woman with history of insulin-dependent diabetes mellitus, hypertension, recent SAH and dyslipidemia who presented with DKA, AMS and STEMI with V. fib arrest requiring IV amiodarone suppression. she was intubated and subsequently extubated. she was treated with IV insulin drip for documented DKA without ketones documentation but she was acidotic on admission and pressors but subsequently weaned off and transferred to the medical floor. Acute hypoxic respiratory failure. Resolved. Now extubated On room air with O2 saturations of 96% DKA: - resolved - On sliding insulin Severe Metabolic acidosis- improved Nephrology following Cardiac arrest with PEA arrest-->V. fib/torsades s/p Shocks x2 - Likely from hyperkalemia, currently patient is stable. Was treated with amiodarone -Echo EF 40-45% - No recurrence Acute kidney injury secondary to ATN - Nephrology is following. HD Held and being reassessed daily. ASHELY improving. Cr 2.3 for past 3 days. Metabolic Acidosis, resolved. Spesis secondary to Possible aspiration pneumonia Inital BCX with coagulase negative staff, 1/2 bottles /contaminate Repeat cultures, no growth. Acute metabolic encephalopathy, resolved NSTEMI Type 2- Likely from Shock. Moderate protein calorie malnutrition Thrombocytopenia - Resolved Acute on chronic anemia of chronic disease, s/p total 3 units PRBC this admission - Hemoglobin is stable -DVT prophylaxis: SCDs only due to recent SAH Discharge planning per primary service Objective - Exam Narrative Exam: VITAL SIGNS: Reviewed. GENERAL: The patient appeared normally developed, cachetic. Vital signs as documented. HEAD: No signs of head trauma. temporal wasting noted EYES: Pupils are equal. Extraocular motions intact. EARS: Hearing grossly intact. MOUTH: Oropharynx is normal. NECK: No adenopathy, no JVD. CHEST: Chest with diminshed breath sounds bilaterally. No wheezes, rales, or rhonchi. (access Right Perm Catheter intact) CARDIAC: Regular rate and rhythm. S1 and S2, without murmurs, gallops, or rubs. VASCULAR: Trace Edema. Peripheral pulses normal and equal in all extremities. ABDOMEN: Soft, without detectable tenderness. No sign of distention. No rebound or guarding, and no masses palpated. Bowel Sounds normal. MUSCULOSKELETAL: Good range of motion of all major joints. Extremities without clubbing, cyanosis. Trace edema. NEUROLOGIC EXAM: Alert and oriented x 3. No focal sensory or strength deficits. Speech normal. Follows commands. PSYCHIATRIC: Mood normal. SKIN: No rash or lesions. Vital Signs - 12hr 12/27/16 12/27/16 12/27/16 04:12 05:23 09:31 Temperature 98.4 F 97.8 F Pulse Rate 105 H Pulse Rate [ 96 H 97 H Right Radial] Respiratory 18 20 Rate Blood Pressure Blood Pressure 154/99 152/89 [Right Arm] O2 Sat by Pulse 99 99 Oximetry 12/27/16 12/27/16 11:18 12:27 Temperature 97.5 F L Pulse Rate 80 Pulse Rate [ 98 H Right Radial] Respiratory 18 Rate Blood Pressure 152/89 Blood Pressure 128/83 [Right Arm] O2 Sat by Pulse 100 Oximetry Constitutional: no acute distress, asleep Eyes: non-icteric ENT: oropharynx moist Neck: supple, no lymphadenopathy Effort: normal Ascultation: Right: rhonchi, Bilateral: diminished breath sounds, rales (R>L lungs) Cardiovascular: regular rate and rhythm Gastrointestinal: normoactive bowel sounds, soft, non-tender, non-distended Integumentary: normal Extremities: no cyanosis, no edema, pulses normal, no ischemia or petechiae Neurologic: normal mental status, non-focal exam, pupils equal and round, motor strength normal and Psychiatric: mood appropriate, affect normal CBC and BMP: 12/26/16 Unknown 12/26/16 Unknown ABG, PT/INR, D-dimer: ABG POC ABG pH 7.326 (7.35-7.45) L 12/09/16 12:02 POC ABG pCO2 37.7 (35-45) 12/09/16 12:02 POC ABG pO2 115 (80-105) H 12/09/16 12:02 POC ABG HCO3 19.7 12/09/16 12:02 POC ABG Total CO2 21 12/09/16 12:02 POC ABG O2 Sat 98 12/09/16 12:02 PT/INR, D-dimer PT 15.3 Sec. (12.2-14.9) H 12/08/16 19:00 INR 1.22 (0.87-1.13) H 12/08/16 19:00 D-Dimer 5507.36 ng/mlDDU (0-234) H 12/08/16 19:00 Abnormal lab findings: Abnormal Labs 12/04/16 12/04/16 12/04/16 01:19 01:36 02:21 WBC RBC Hgb Hct MCV MCHC RDW Plt Count Lymph % (Auto) Glynn % (Auto) Glynn # Baso # Seg Neutrophils % Seg Neuts % (Manual) Lymphocytes % (Manual) Monocytes % (Manual) Nucleated RBC % Seg Neutrophils # Seg Neutrophils # Man Lymphocytes # (Manual) Monocytes # (Manual) Percent Retic Haptoglobin PT INR Fibrinogen D-Dimer POC ABG pH 6.759 L POC ABG pCO2 POC ABG pO2 437 H Sodium Potassium Chloride Carbon Dioxide BUN Creatinine Glucose POC Glucose > 500 H Lactic Acid Calcium Phosphorus 15.70 H Magnesium 4.30 H Iron TIBC Transferrin Total Bilirubin Direct Bilirubin AST ALT Alkaline Phosphatase Lactate Dehydrogenase CK-MB (CK-2) Troponin T C-Reactive Protein Total Protein Albumin Triglycerides Cholesterol HDL Cholesterol Vitamin B12 Urine Creatinine Urine Total Protein Heparin-induced Plt Ab Hep Bs Antibody, Quant Crossmatch 12/04/16 12/04/16 12/04/16 03:55 04:00 05:11 WBC RBC Hgb Hct MCV MCHC RDW Plt Count Lymph % (Auto) Glynn % (Auto) Glynn # Baso # Seg Neutrophils % Seg Neuts % (Manual) Lymphocytes % (Manual) Monocytes % (Manual) Nucleated RBC % Seg Neutrophils # Seg Neutrophils # Man Lymphocytes # (Manual) Monocytes # (Manual) Percent Retic Haptoglobin PT INR Fibrinogen D-Dimer POC ABG pH POC ABG pCO2 POC ABG pO2 Sodium Potassium Chloride 91.4 L Carbon Dioxide 8 L* BUN 55 H Creatinine 2.8 H Glucose 1610 H* POC Glucose > 500 H > 500 H Lactic Acid Calcium Phosphorus Magnesium Iron TIBC Transferrin Total Bilirubin Direct Bilirubin AST ALT Alkaline Phosphatase Lactate Dehydrogenase CK-MB (CK-2) Troponin T C-Reactive Protein Total Protein Albumin Triglycerides Cholesterol HDL Cholesterol Vitamin B12 Urine Creatinine Urine Total Protein Heparin-induced Plt Ab Hep Bs Antibody, Quant Crossmatch 12/04/16 12/04/16 12/04/16 05:40 05:54 06:58 WBC RBC Hgb Hct MCV MCHC RDW Plt Count Lymph % (Auto) Glynn % (Auto) Glynn # Baso # Seg Neutrophils % Seg Neuts % (Manual) Lymphocytes % (Manual) Monocytes % (Manual) Nucleated RBC % Seg Neutrophils # Seg Neutrophils # Man Lymphocytes # (Manual) Monocytes # (Manual) Percent Retic Haptoglobin PT INR Fibrinogen D-Dimer POC ABG pH 7.154 L POC ABG pCO2 27.5 L POC ABG pO2 111 H Sodium Potassium Chloride Carbon Dioxide BUN Creatinine Glucose POC Glucose > 500 H > 500 H Lactic Acid Calcium Phosphorus Magnesium Iron TIBC Transferrin Total Bilirubin Direct Bilirubin AST ALT Alkaline Phosphatase Lactate Dehydrogenase CK-MB (CK-2) Troponin T C-Reactive Protein Total Protein Albumin Triglycerides Cholesterol HDL Cholesterol Vitamin B12 Urine Creatinine Urine Total Protein Heparin-induced Plt Ab Hep Bs Antibody, Quant Crossmatch 12/04/16 12/04/16 12/04/16 07:49 07:55 07:55 WBC RBC Hgb Hct MCV MCHC RDW Plt Count Lymph % (Auto) Glynn % (Auto) Glynn # Baso # Seg Neutrophils % Seg Neuts % (Manual) Lymphocytes % (Manual) Monocytes % (Manual) Nucleated RBC % Seg Neutrophils # Seg Neutrophils # Man Lymphocytes # (Manual) Monocytes # (Manual) Percent Retic Haptoglobin PT INR Fibrinogen D-Dimer POC ABG pH POC ABG pCO2 POC ABG pO2 Sodium Potassium 3.3 L Chloride Carbon Dioxide 9 L* BUN 53 H Creatinine 2.9 H Glucose 1229 H* POC Glucose > 500 H Lactic Acid Calcium Phosphorus Magnesium Iron TIBC Transferrin Total Bilirubin Direct Bilirubin AST ALT Alkaline Phosphatase Lactate Dehydrogenase CK-MB (CK-2) Troponin T 0.111 H* D C-Reactive Protein Total Protein Albumin Triglycerides 570 H Cholesterol 221 H HDL Cholesterol 37 L Vitamin B12 Urine Creatinine Urine Total Protein Heparin-induced Plt Ab Hep Bs Antibody, Quant Crossmatch 12/04/16 12/04/16 12/04/16 07:55 09:55 09:55 WBC RBC 2.90 L Hgb 8.5 L Hct 30.2 L D MCV 105 H D MCHC 28 L RDW 19.2 H Plt Count Lymph % (Auto) Glynn % (Auto) Glynn # Baso # Seg Neutrophils % Seg Neuts % (Manual) Lymphocytes % (Manual) 11.0 L Monocytes % (Manual) Nucleated RBC % Seg Neutrophils # Seg Neutrophils # Man Lymphocytes # (Manual) 0.6 L Monocytes # (Manual) Percent Retic Haptoglobin PT INR Fibrinogen D-Dimer POC ABG pH POC ABG pCO2 POC ABG pO2 Sodium Potassium 3.1 L Chloride Carbon Dioxide 7 L* BUN 51 H Creatinine 3.2 H Glucose 969 H* POC Glucose Lactic Acid Calcium 10.4 H D Phosphorus Magnesium Iron TIBC Transferrin Total Bilirubin Direct Bilirubin AST ALT Alkaline Phosphatase Lactate Dehydrogenase CK-MB (CK-2) 4.6 H Troponin T 0.140 H* D C-Reactive Protein Total Protein Albumin Triglycerides Cholesterol HDL Cholesterol Vitamin B12 Urine Creatinine Urine Total Protein Heparin-induced Plt Ab Hep Bs Antibody, Quant Crossmatch 12/04/16 12/04/16 12/04/16 09:55 10:37 11:25 WBC RBC Hgb Hct MCV MCHC RDW Plt Count Lymph % (Auto) Glynn % (Auto) Glynn # Baso # Seg Neutrophils % Seg Neuts % (Manual) Lymphocytes % (Manual) Monocytes % (Manual) Nucleated RBC % Seg Neutrophils # Seg Neutrophils # Man Lymphocytes # (Manual) Monocytes # (Manual) Percent Retic Haptoglobin PT INR Fibrinogen D-Dimer POC ABG pH 7.215 L POC ABG pCO2 18.8 L POC ABG pO2 193 H Sodium Potassium Chloride Carbon Dioxide BUN Creatinine Glucose POC Glucose Lactic Acid Calcium Phosphorus Magnesium 3.70 H Iron TIBC Transferrin Total Bilirubin Direct Bilirubin AST ALT Alkaline Phosphatase Lactate Dehydrogenase CK-MB (CK-2) Troponin T C-Reactive Protein Total Protein Albumin Triglycerides Cholesterol HDL Cholesterol Vitamin B12 Urine Creatinine 29.5 H Urine Total Protein 33 H Heparin-induced Plt Ab Hep Bs Antibody, Quant Crossmatch 12/04/16 12/04/16 12/04/16 12:00 12:48 13:00 WBC RBC Hgb Hct MCV MCHC RDW Plt Count Lymph % (Auto) Glynn % (Auto) Glynn # Baso # Seg Neutrophils % Seg Neuts % (Manual) Lymphocytes % (Manual) Monocytes % (Manual) Nucleated RBC % Seg Neutrophils # Seg Neutrophils # Man Lymphocytes # (Manual) Monocytes # (Manual) Percent Retic Haptoglobin PT INR Fibrinogen D-Dimer POC ABG pH POC ABG pCO2 POC ABG pO2 Sodium 149 H 150 H Potassium 3.2 L 3.2 L Chloride 109.1 H Carbon Dioxide 8 L* 8 L* BUN 52 H 49 H Creatinine 3.4 H 3.1 H Glucose 723 H* 574 H* POC Glucose Lactic Acid 18.80 H* Calcium Phosphorus Magnesium Iron TIBC Transferrin Total Bilirubin Direct Bilirubin AST ALT Alkaline Phosphatase Lactate Dehydrogenase CK-MB (CK-2) Troponin T C-Reactive Protein Total Protein Albumin Triglycerides Cholesterol HDL Cholesterol Vitamin B12 Urine Creatinine Urine Total Protein Heparin-induced Plt Ab Hep Bs Antibody, Quant Crossmatch 12/04/16 12/04/16 12/04/16 13:01 14:41 16:06 WBC RBC Hgb Hct MCV MCHC RDW Plt Count Lymph % (Auto) Glynn % (Auto) Glynn # Baso # Seg Neutrophils % Seg Neuts % (Manual) Lymphocytes % (Manual) Monocytes % (Manual) Nucleated RBC % Seg Neutrophils # Seg Neutrophils # Man Lymphocytes # (Manual) Monocytes # (Manual) Percent Retic Haptoglobin PT INR Fibrinogen D-Dimer POC ABG pH POC ABG pCO2 POC ABG pO2 Sodium 151 H Potassium 3.2 L Chloride 108.1 H Carbon Dioxide 10 L BUN 49 H Creatinine 3.0 H Glucose 383 H POC Glucose 292 H Lactic Acid Calcium Phosphorus Magnesium Iron TIBC Transferrin Total Bilirubin Direct Bilirubin AST ALT Alkaline Phosphatase Lactate Dehydrogenase CK-MB (CK-2) Troponin T C-Reactive Protein 3.50 H Total Protein Albumin Triglycerides Cholesterol HDL Cholesterol Vitamin B12 Urine Creatinine Urine Total Protein Heparin-induced Plt Ab Hep Bs Antibody, Quant Crossmatch 12/04/16 12/04/16 12/04/16 17:15 17:25 18:07 WBC RBC Hgb Hct MCV MCHC RDW Plt Count Lymph % (Auto) Glynn % (Auto) Glynn # Baso # Seg Neutrophils % Seg Neuts % (Manual) Lymphocytes % (Manual) Monocytes % (Manual) Nucleated RBC % Seg Neutrophils # Seg Neutrophils # Man Lymphocytes # (Manual) Monocytes # (Manual) Percent Retic Haptoglobin PT INR Fibrinogen D-Dimer POC ABG pH 7.255 L POC ABG pCO2 16.9 L POC ABG pO2 169 H Sodium Potassium Chloride Carbon Dioxide BUN Creatinine Glucose POC Glucose 246 H Lactic Acid 18.50 H* Calcium Phosphorus Magnesium Iron TIBC Transferrin Total Bilirubin Direct Bilirubin AST ALT Alkaline Phosphatase Lactate Dehydrogenase CK-MB (CK-2) Troponin T C-Reactive Protein Total Protein Albumin Triglycerides Cholesterol HDL Cholesterol Vitamin B12 Urine Creatinine Urine Total Protein Heparin-induced Plt Ab Hep Bs Antibody, Quant Crossmatch 12/04/16 12/04/16 12/04/16 19:34 20:31 21:15 WBC RBC Hgb Hct MCV MCHC RDW Plt Count Lymph % (Auto) Glynn % (Auto) Glynn # Baso # Seg Neutrophils % Seg Neuts % (Manual) Lymphocytes % (Manual) Monocytes % (Manual) Nucleated RBC % Seg Neutrophils # Seg Neutrophils # Man Lymphocytes # (Manual) Monocytes # (Manual) Percent Retic Haptoglobin PT INR Fibrinogen D-Dimer POC ABG pH POC ABG pCO2 POC ABG pO2 Sodium Potassium Chloride Carbon Dioxide BUN Creatinine Glucose POC Glucose 189 H 126 H 139 H Lactic Acid Calcium Phosphorus Magnesium Iron TIBC Transferrin Total Bilirubin Direct Bilirubin AST ALT Alkaline Phosphatase Lactate Dehydrogenase CK-MB (CK-2) Troponin T C-Reactive Protein Total Protein Albumin Triglycerides Cholesterol HDL Cholesterol Vitamin B12 Urine Creatinine Urine Total Protein Heparin-induced Plt Ab Hep Bs Antibody, Quant Crossmatch 12/04/16 12/04/16 12/04/16 21:25 22:37 23:35 WBC RBC Hgb Hct MCV MCHC RDW Plt Count Lymph % (Auto) Glynn % (Auto) Glynn # Baso # Seg Neutrophils % Seg Neuts % (Manual) Lymphocytes % (Manual) Monocytes % (Manual) Nucleated RBC % Seg Neutrophils # Seg Neutrophils # Man Lymphocytes # (Manual) Monocytes # (Manual) Percent Retic Haptoglobin PT INR Fibrinogen D-Dimer POC ABG pH 7.294 L POC ABG pCO2 16.7 L POC ABG pO2 169 H Sodium Potassium Chloride Carbon Dioxide BUN Creatinine Glucose POC Glucose 131 H 106 H Lactic Acid Calcium Phosphorus Magnesium Iron TIBC Transferrin Total Bilirubin Direct Bilirubin AST ALT Alkaline Phosphatase Lactate Dehydrogenase CK-MB (CK-2) Troponin T C-Reactive Protein Total Protein Albumin Triglycerides Cholesterol HDL Cholesterol Vitamin B12 Urine Creatinine Urine Total Protein Heparin-induced Plt Ab Hep Bs Antibody, Quant Crossmatch 12/05/16 12/05/16 12/05/16 02:40 02:50 02:50 WBC RBC Hgb Hct MCV MCHC RDW Plt Count Lymph % (Auto) Glynn % (Auto) Glynn # Baso # Seg Neutrophils % Seg Neuts % (Manual) Lymphocytes % (Manual) Monocytes % (Manual) Nucleated RBC % Seg Neutrophils # Seg Neutrophils # Man Lymphocytes # (Manual) Monocytes # (Manual) Percent Retic Haptoglobin PT INR Fibrinogen D-Dimer POC ABG pH POC ABG pCO2 POC ABG pO2 Sodium 151 H Potassium Chloride 113.8 H Carbon Dioxide 12 L BUN 46 H Creatinine 3.2 H Glucose 165 H POC Glucose 109 H Lactic Acid 9.80 H* Calcium 8.3 L Phosphorus Magnesium Iron TIBC Transferrin Total Bilirubin Direct Bilirubin AST ALT Alkaline Phosphatase Lactate Dehydrogenase CK-MB (CK-2) Troponin T C-Reactive Protein Total Protein Albumin Triglycerides Cholesterol HDL Cholesterol Vitamin B12 Urine Creatinine Urine Total Protein Heparin-induced Plt Ab Hep Bs Antibody, Quant Crossmatch 12/05/16 12/05/16 12/05/16 04:01 04:30 04:30 WBC 19.1 H RBC 2.91 L Hgb 8.0 L Hct 25.4 L MCV MCHC RDW 17.8 H Plt Count Lymph % (Auto) Glynn % (Auto) Glynn # Baso # Seg Neutrophils % Seg Neuts % (Manual) 17.0 L Lymphocytes % (Manual) 7.0 L Monocytes % (Manual) Nucleated RBC % 3.0 H Seg Neutrophils # Seg Neutrophils # Man Lymphocytes # (Manual) Monocytes # (Manual) Percent Retic Haptoglobin PT INR Fibrinogen D-Dimer POC ABG pH POC ABG pCO2 POC ABG pO2 Sodium 152 H Potassium Chloride 113.5 H Carbon Dioxide 12 L BUN 47 H Creatinine 3.2 H Glucose 133 H POC Glucose 179 H Lactic Acid Calcium 8.3 L Phosphorus 1.00 L D Magnesium Iron TIBC Transferrin Total Bilirubin Direct Bilirubin AST ALT Alkaline Phosphatase Lactate Dehydrogenase CK-MB (CK-2) Troponin T C-Reactive Protein Total Protein Albumin Triglycerides Cholesterol HDL Cholesterol Vitamin B12 Urine Creatinine Urine Total Protein Heparin-induced Plt Ab Hep Bs Antibody, Quant Crossmatch 12/05/16 12/05/16 12/05/16 05:32 08:01 08:48 WBC RBC Hgb Hct MCV MCHC RDW Plt Count Lymph % (Auto) Glynn % (Auto) Glynn # Baso # Seg Neutrophils % Seg Neuts % (Manual) Lymphocytes % (Manual) Monocytes % (Manual) Nucleated RBC % Seg Neutrophils # Seg Neutrophils # Man Lymphocytes # (Manual) Monocytes # (Manual) Percent Retic Haptoglobin PT INR Fibrinogen D-Dimer POC ABG pH POC ABG pCO2 17.6 L POC ABG pO2 62 L Sodium Potassium Chloride Carbon Dioxide BUN Creatinine Glucose POC Glucose 126 H 130 H Lactic Acid Calcium Phosphorus Magnesium Iron TIBC Transferrin Total Bilirubin Direct Bilirubin AST ALT Alkaline Phosphatase Lactate Dehydrogenase CK-MB (CK-2) Troponin T C-Reactive Protein Total Protein Albumin Triglycerides Cholesterol HDL Cholesterol Vitamin B12 Urine Creatinine Urine Total Protein Heparin-induced Plt Ab Hep Bs Antibody, Quant Crossmatch 12/05/16 12/05/16 12/05/16 08:54 12:01 15:15 WBC RBC Hgb Hct MCV MCHC RDW Plt Count Lymph % (Auto) Glynn % (Auto) Glynn # Baso # Seg Neutrophils % Seg Neuts % (Manual) Lymphocytes % (Manual) Monocytes % (Manual) Nucleated RBC % Seg Neutrophils # Seg Neutrophils # Man Lymphocytes # (Manual) Monocytes # (Manual) Percent Retic Haptoglobin PT INR Fibrinogen D-Dimer POC ABG pH POC ABG pCO2 POC ABG pO2 Sodium Potassium Chloride Carbon Dioxide BUN Creatinine Glucose POC Glucose 157 H 117 H 166 H Lactic Acid Calcium Phosphorus Magnesium Iron TIBC Transferrin Total Bilirubin Direct Bilirubin AST ALT Alkaline Phosphatase Lactate Dehydrogenase CK-MB (CK-2) Troponin T C-Reactive Protein Total Protein Albumin Triglycerides Cholesterol HDL Cholesterol Vitamin B12 Urine Creatinine Urine Total Protein Heparin-induced Plt Ab Hep Bs Antibody, Quant Crossmatch 12/05/16 12/05/16 12/05/16 16:10 16:55 17:08 WBC RBC Hgb Hct MCV MCHC RDW Plt Count Lymph % (Auto) Glynn % (Auto) Glynn # Baso # Seg Neutrophils % Seg Neuts % (Manual) Lymphocytes % (Manual) Monocytes % (Manual) Nucleated RBC % Seg Neutrophils # Seg Neutrophils # Man Lymphocytes # (Manual) Monocytes # (Manual) Percent Retic Haptoglobin PT INR Fibrinogen D-Dimer POC ABG pH POC ABG pCO2 POC ABG pO2 Sodium Potassium Chloride Carbon Dioxide BUN Creatinine Glucose POC Glucose 178 H 169 H Lactic Acid Calcium Phosphorus 5.00 H D Magnesium Iron TIBC Transferrin Total Bilirubin Direct Bilirubin AST ALT Alkaline Phosphatase Lactate Dehydrogenase CK-MB (CK-2) Troponin T C-Reactive Protein Total Protein Albumin Triglycerides Cholesterol HDL Cholesterol Vitamin B12 Urine Creatinine Urine Total Protein Heparin-induced Plt Ab Hep Bs Antibody, Quant Crossmatch 12/05/16 12/05/16 12/05/16 18:08 18:51 20:04 WBC RBC Hgb Hct MCV MCHC RDW Plt Count Lymph % (Auto) Glynn % (Auto) Glynn # Baso # Seg Neutrophils % Seg Neuts % (Manual) Lymphocytes % (Manual) Monocytes % (Manual) Nucleated RBC % Seg Neutrophils # Seg Neutrophils # Man Lymphocytes # (Manual) Monocytes # (Manual) Percent Retic Haptoglobin PT INR Fibrinogen D-Dimer POC ABG pH POC ABG pCO2 POC ABG pO2 Sodium Potassium Chloride Carbon Dioxide BUN Creatinine Glucose POC Glucose 147 H 113 H 64 L Lactic Acid Calcium Phosphorus Magnesium Iron TIBC Transferrin Total Bilirubin Direct Bilirubin AST ALT Alkaline Phosphatase Lactate Dehydrogenase CK-MB (CK-2) Troponin T C-Reactive Protein Total Protein Albumin Triglycerides Cholesterol HDL Cholesterol Vitamin B12 Urine Creatinine Urine Total Protein Heparin-induced Plt Ab Hep Bs Antibody, Quant Crossmatch 12/05/16 12/05/16 12/05/16 21:34 22:08 23:19 WBC RBC Hgb Hct MCV MCHC RDW Plt Count Lymph % (Auto) Glynn % (Auto) Glynn # Baso # Seg Neutrophils % Seg Neuts % (Manual) Lymphocytes % (Manual) Monocytes % (Manual) Nucleated RBC % Seg Neutrophils # Seg Neutrophils # Man Lymphocytes # (Manual) Monocytes # (Manual) Percent Retic Haptoglobin PT INR Fibrinogen D-Dimer POC ABG pH 7.303 L POC ABG pCO2 18.3 L POC ABG pO2 73 L Sodium Potassium Chloride Carbon Dioxide BUN Creatinine Glucose POC Glucose 141 H 200 H Lactic Acid Calcium Phosphorus Magnesium Iron TIBC Transferrin Total Bilirubin Direct Bilirubin AST ALT Alkaline Phosphatase Lactate Dehydrogenase CK-MB (CK-2) Troponin T C-Reactive Protein Total Protein Albumin Triglycerides Cholesterol HDL Cholesterol Vitamin B12 Urine Creatinine Urine Total Protein Heparin-induced Plt Ab Hep Bs Antibody, Quant Crossmatch 12/06/16 12/06/16 12/06/16 00:01 01:09 02:00 WBC RBC Hgb Hct MCV MCHC RDW Plt Count Lymph % (Auto) Glynn % (Auto) Glynn # Baso # Seg Neutrophils % Seg Neuts % (Manual) Lymphocytes % (Manual) Monocytes % (Manual) Nucleated RBC % Seg Neutrophils # Seg Neutrophils # Man Lymphocytes # (Manual) Monocytes # (Manual) Percent Retic Haptoglobin PT INR Fibrinogen D-Dimer POC ABG pH POC ABG pCO2 POC ABG pO2 Sodium Potassium Chloride Carbon Dioxide BUN Creatinine Glucose POC Glucose 211 H 116 H 57 L Lactic Acid Calcium Phosphorus Magnesium Iron TIBC Transferrin Total Bilirubin Direct Bilirubin AST ALT Alkaline Phosphatase Lactate Dehydrogenase CK-MB (CK-2) Troponin T C-Reactive Protein Total Protein Albumin Triglycerides Cholesterol HDL Cholesterol Vitamin B12 Urine Creatinine Urine Total Protein Heparin-induced Plt Ab Hep Bs Antibody, Quant Crossmatch 12/06/16 12/06/16 12/06/16 04:14 04:50 04:50 WBC RBC 2.68 L Hgb 7.6 L Hct 23.2 L MCV MCHC RDW 18.9 H Plt Count Lymph % (Auto) Glynn % (Auto) Glynn # Baso # Seg Neutrophils % Seg Neuts % (Manual) 32.0 L Lymphocytes % (Manual) Monocytes % (Manual) Nucleated RBC % 3.0 H Seg Neutrophils # Seg Neutrophils # Man Lymphocytes # (Manual) 0.9 L Monocytes # (Manual) Percent Retic Haptoglobin PT INR Fibrinogen D-Dimer POC ABG pH POC ABG pCO2 POC ABG pO2 Sodium Potassium 5.8 H D Chloride 111.5 H Carbon Dioxide 11 L BUN 52 H Creatinine 3.8 H Glucose 186 H POC Glucose 133 H Lactic Acid Calcium 6.5 L D Phosphorus 5.80 H Magnesium Iron TIBC Transferrin Total Bilirubin Direct Bilirubin AST ALT Alkaline Phosphatase Lactate Dehydrogenase CK-MB (CK-2) Troponin T C-Reactive Protein Total Protein Albumin Triglycerides Cholesterol HDL Cholesterol Vitamin B12 Urine Creatinine Urine Total Protein Heparin-induced Plt Ab Hep Bs Antibody, Quant Crossmatch 12/06/16 12/06/16 12/06/16 04:50 05:04 05:07 WBC RBC Hgb Hct MCV MCHC RDW Plt Count Lymph % (Auto) Glynn % (Auto) Glynn # Baso # Seg Neutrophils % Seg Neuts % (Manual) Lymphocytes % (Manual) Monocytes % (Manual) Nucleated RBC % Seg Neutrophils # Seg Neutrophils # Man Lymphocytes # (Manual) Monocytes # (Manual) Percent Retic Haptoglobin PT INR Fibrinogen D-Dimer POC ABG pH POC ABG pCO2 13.0 L POC ABG pO2 111 H Sodium Potassium Chloride Carbon Dioxide BUN Creatinine Glucose POC Glucose 127 H Lactic Acid 6.50 H* Calcium Phosphorus Magnesium Iron TIBC Transferrin Total Bilirubin Direct Bilirubin AST ALT Alkaline Phosphatase Lactate Dehydrogenase CK-MB (CK-2) Troponin T C-Reactive Protein Total Protein Albumin Triglycerides Cholesterol HDL Cholesterol Vitamin B12 Urine Creatinine Urine Total Protein Heparin-induced Plt Ab Hep Bs Antibody, Quant Crossmatch 12/06/16 12/06/16 12/06/16 06:10 06:54 07:46 WBC RBC Hgb Hct MCV MCHC RDW Plt Count Lymph % (Auto) Glynn % (Auto) Glynn # Baso # Seg Neutrophils % Seg Neuts % (Manual) Lymphocytes % (Manual) Monocytes % (Manual) Nucleated RBC % Seg Neutrophils # Seg Neutrophils # Man Lymphocytes # (Manual) Monocytes # (Manual) Percent Retic Haptoglobin PT INR Fibrinogen D-Dimer POC ABG pH POC ABG pCO2 POC ABG pO2 Sodium Potassium Chloride Carbon Dioxide BUN Creatinine Glucose POC Glucose 219 H 237 H 158 H Lactic Acid Calcium Phosphorus Magnesium Iron TIBC Transferrin Total Bilirubin Direct Bilirubin AST ALT Alkaline Phosphatase Lactate Dehydrogenase CK-MB (CK-2) Troponin T C-Reactive Protein Total Protein Albumin Triglycerides Cholesterol HDL Cholesterol Vitamin B12 Urine Creatinine Urine Total Protein Heparin-induced Plt Ab Hep Bs Antibody, Quant Crossmatch 12/06/16 12/06/16 12/06/16 08:55 10:27 11:58 WBC RBC Hgb Hct MCV MCHC RDW Plt Count Lymph % (Auto) Glynn % (Auto) [place]nn # Baso # Seg Neutrophils % Seg Neuts % (Manual) Lymphocytes % (Manual) Monocytes % (Manual) Nucleated RBC % Seg Neutrophils # Seg Neutrophils # Man Lymphocytes # (Manual) Monocytes # (Manual) Percent Retic Haptoglobin PT INR Fibrinogen D-Dimer POC ABG pH POC ABG pCO2 POC ABG pO2 Sodium Potassium Chloride Carbon Dioxide BUN Creatinine Glucose POC Glucose 40 L 128 H 144 H Lactic Acid Calcium Phosphorus Magnesium Iron TIBC Transferrin Total Bilirubin Direct Bilirubin AST ALT Alkaline Phosphatase Lactate Dehydrogenase CK-MB (CK-2) Troponin T C-Reactive Protein Total Protein Albumin Triglycerides Cholesterol HDL Cholesterol Vitamin B12 Urine Creatinine Urine Total Protein Heparin-induced Plt Ab Hep Bs Antibody, Quant Crossmatch 12/06/16 12/06/16 12/06/16 18:14 19:00 19:06 WBC RBC Hgb Hct MCV MCHC RDW Plt Count Lymph % (Auto) Glynn % (Auto) [place]nn # Baso # Seg Neutrophils % Seg Neuts % (Manual) Lymphocytes % (Manual) Monocytes % (Manual) Nucleated RBC % Seg Neutrophils # Seg Neutrophils # Man Lymphocytes # (Manual) Monocytes # (Manual) Percent Retic Haptoglobin PT INR Fibrinogen D-Dimer POC ABG pH POC ABG pCO2 POC ABG pO2 Sodium 149 H Potassium 5.6 H Chloride 115.9 H Carbon Dioxide 13 L BUN 56 H Creatinine 4.3 H Glucose 124 H POC Glucose 55 L 148 H Lactic Acid Calcium 6.0 L Phosphorus Magnesium Iron TIBC Transferrin Total Bilirubin Direct Bilirubin AST ALT Alkaline Phosphatase Lactate Dehydrogenase CK-MB (CK-2) Troponin T C-Reactive Protein Total Protein Albumin Triglycerides Cholesterol HDL Cholesterol Vitamin B12 Urine Creatinine Urine Total Protein Heparin-induced Plt Ab Hep Bs Antibody, Quant Crossmatch 12/06/16 12/06/16 12/07/16 21:24 21:51 02:32 WBC RBC Hgb Hct MCV MCHC RDW Plt Count Lymph % (Auto) Glynn % (Auto) [place]nn # Baso # Seg Neutrophils % Seg Neuts % (Manual) Lymphocytes % (Manual) Monocytes % (Manual) Nucleated RBC % Seg Neutrophils # Seg Neutrophils # Man Lymphocytes # (Manual) Monocytes # (Manual) Percent Retic Haptoglobin PT INR Fibrinogen D-Dimer POC ABG pH POC ABG pCO2 17.0 L POC ABG pO2 142 H Sodium Potassium Chloride Carbon Dioxide BUN Creatinine Glucose POC Glucose 107 H 175 H Lactic Acid Calcium Phosphorus Magnesium Iron TIBC Transferrin Total Bilirubin Direct Bilirubin AST ALT Alkaline Phosphatase Lactate Dehydrogenase CK-MB (CK-2) Troponin T C-Reactive Protein Total Protein Albumin Triglycerides Cholesterol HDL Cholesterol Vitamin B12 Urine Creatinine Urine Total Protein Heparin-induced Plt Ab Hep Bs Antibody, Quant Crossmatch 12/07/16 12/07/16 12/07/16 05:01 05:25 06:00 WBC RBC 2.52 L Hgb 7.1 L Hct 22.1 L MCV MCHC RDW 19.3 H Plt Count 90 L Lymph % (Auto) Glynn % (Auto) [place]nn # Baso # Seg Neutrophils % Seg Neuts % (Manual) 75.0 H Lymphocytes % (Manual) 11.0 L Monocytes % (Manual) Nucleated RBC % Seg Neutrophils # Seg Neutrophils # Man Lymphocytes # (Manual) 0.7 L Monocytes # (Manual) Percent Retic Haptoglobin PT INR Fibrinogen D-Dimer POC ABG pH 7.300 L POC ABG pCO2 17.1 L POC ABG pO2 140 H Sodium Potassium Chloride Carbon Dioxide BUN Creatinine Glucose POC Glucose 279 H Lactic Acid Calcium Phosphorus Magnesium Iron TIBC Transferrin Total Bilirubin Direct Bilirubin AST ALT Alkaline Phosphatase Lactate Dehydrogenase CK-MB (CK-2) Troponin T C-Reactive Protein Total Protein Albumin Triglycerides Cholesterol HDL Cholesterol Vitamin B12 Urine Creatinine Urine Total Protein Heparin-induced Plt Ab Hep Bs Antibody, Quant Crossmatch 12/07/16 12/07/16 12/07/16 06:00 06:00 07:30 WBC RBC Hgb Hct MCV MCHC RDW Plt Count Lymph % (Auto) [place]nn % (Auto) [place] # Baso # Seg Neutrophils % Seg Neuts % (Manual) Lymphocytes % (Manual) Monocytes % (Manual) Nucleated RBC % Seg Neutrophils # Seg Neutrophils # Man Lymphocytes # (Manual) Monocytes # (Manual) Percent Retic Haptoglobin PT INR Fibrinogen D-Dimer POC ABG pH POC ABG pCO2 POC ABG pO2 Sodium Potassium Chloride Carbon Dioxide BUN Creatinine Glucose POC Glucose Lactic Acid 6.90 H* Calcium Phosphorus 6.80 H Magnesium Iron TIBC Transferrin Total Bilirubin Direct Bilirubin AST ALT Alkaline Phosphatase Lactate Dehydrogenase CK-MB (CK-2) Troponin T C-Reactive Protein 39.40 H Total Protein Albumin Triglycerides Cholesterol HDL Cholesterol Vitamin B12 Urine Creatinine Urine Total Protein Heparin-induced Plt Ab Hep Bs Antibody, Quant Crossmatch 12/07/16 12/07/16 12/07/16 08:40 10:53 14:31 WBC RBC Hgb Hct MCV MCHC RDW Plt Count Lymph % (Auto) [place]nn % (Auto) [place]nn # Baso # Seg Neutrophils % Seg Neuts % (Manual) Lymphocytes % (Manual) Monocytes % (Manual) Nucleated RBC % Seg Neutrophils # Seg Neutrophils # Man Lymphocytes # (Manual) Monocytes # (Manual) Percent Retic Haptoglobin PT INR Fibrinogen D-Dimer POC ABG pH POC ABG pCO2 POC ABG pO2 Sodium Potassium 7.0 H* D Chloride 112.4 H Carbon Dioxide 8 L* BUN 61 H Creatinine 5.1 H Glucose 213 H POC Glucose 353 H 52 L Lactic Acid Calcium 5.8 L* Phosphorus Magnesium Iron TIBC Transferrin Total Bilirubin Direct Bilirubin AST ALT Alkaline Phosphatase Lactate Dehydrogenase CK-MB (CK-2) Troponin T C-Reactive Protein Total Protein Albumin Triglycerides Cholesterol HDL Cholesterol Vitamin B12 Urine Creatinine Urine Total Protein Heparin-induced Plt Ab Hep Bs Antibody, Quant Crossmatch 12/07/16 12/07/16 12/07/16 14:45 15:33 16:22 WBC RBC Hgb Hct MCV MCHC RDW Plt Count Lymph % (Auto) [place]nn % (Auto) [place]nn # Baso # Seg Neutrophils % Seg Neuts % (Manual) Lymphocytes % (Manual) Monocytes % (Manual) Nucleated RBC % Seg Neutrophils # Seg Neutrophils # Man Lymphocytes # (Manual) Monocytes # (Manual) Percent Retic Haptoglobin PT 17.5 H INR 1.44 H Fibrinogen D-Dimer POC ABG pH POC ABG pCO2 POC ABG pO2 Sodium Potassium Chloride Carbon Dioxide BUN Creatinine Glucose POC Glucose < 40 L 118 H Lactic Acid Calcium Phosphorus Magnesium Iron TIBC Transferrin Total Bilirubin Direct Bilirubin AST ALT Alkaline Phosphatase Lactate Dehydrogenase CK-MB (CK-2) Troponin T C-Reactive Protein Total Protein Albumin Triglycerides Cholesterol HDL Cholesterol Vitamin B12 Urine Creatinine Urine Total Protein Heparin-induced Plt Ab Hep Bs Antibody, Quant Crossmatch 12/07/16 12/07/16 12/07/16 21:35 21:35 21:58 WBC RBC Hgb Hct MCV MCHC RDW Plt Count Lymph % (Auto) [place]nn % (Auto) [place] # Baso # Seg Neutrophils % Seg Neuts % (Manual) Lymphocytes % (Manual) Monocytes % (Manual) Nucleated RBC % Seg Neutrophils # Seg Neutrophils # Man Lymphocytes # (Manual) Monocytes # (Manual) Percent Retic Haptoglobin PT INR Fibrinogen D-Dimer POC ABG pH POC ABG pCO2 POC ABG pO2 Sodium 150 H Potassium 3.3 L D Chloride 111.4 H Carbon Dioxide 21 L D BUN 22 H Creatinine 2.6 H Glucose 23 L* POC Glucose < 40 L Lactic Acid Calcium Phosphorus Magnesium Iron TIBC Transferrin Total Bilirubin 1.40 H Direct Bilirubin 0.9 H AST 94 H ALT 142 H Alkaline Phosphatase 249 H Lactate Dehydrogenase CK-MB (CK-2) Troponin T C-Reactive Protein Total Protein 4.6 L D Albumin 2.1 L Triglycerides Cholesterol HDL Cholesterol Vitamin B12 Urine Creatinine Urine Total Protein Heparin-induced Plt Ab Hep Bs Antibody, Quant Crossmatch 12/07/16 12/08/16 12/08/16 23:31 04:43 04:50 WBC RBC 2.35 L Hgb 6.6 L Hct 20.1 L MCV MCHC RDW 17.8 H Plt Count 48 L Lymph % (Auto) [place]nn % (Auto) [place]nn # Baso # Seg Neutrophils % Seg Neuts % (Manual) Lymphocytes % (Manual) Monocytes % (Manual) Nucleated RBC % Seg Neutrophils # Seg Neutrophils # Man Lymphocytes # (Manual) 0.9 L Monocytes # (Manual) Percent Retic Haptoglobin PT INR Fibrinogen D-Dimer POC ABG pH 7.586 H POC ABG pCO2 17.7 L POC ABG pO2 150 H Sodium Potassium Chloride Carbon Dioxide BUN Creatinine Glucose POC Glucose 42 L Lactic Acid Calcium Phosphorus Magnesium Iron TIBC Transferrin Total Bilirubin Direct Bilirubin AST ALT Alkaline Phosphatase Lactate Dehydrogenase CK-MB (CK-2) Troponin T C-Reactive Protein Total Protein Albumin Triglycerides Cholesterol HDL Cholesterol Vitamin B12 Urine Creatinine Urine Total Protein Heparin-induced Plt Ab Hep Bs Antibody, Quant Crossmatch 12/08/16 12/08/16 12/08/16 04:50 04:59 06:54 WBC RBC Hgb Hct MCV MCHC RDW Plt Count Lymph % (Auto) [place]nn % (Auto) [place] # Baso # Seg Neutrophils % Seg Neuts % (Manual) Lymphocytes % (Manual) Monocytes % (Manual) Nucleated RBC % Seg Neutrophils # Seg Neutrophils # Man Lymphocytes # (Manual) Monocytes # (Manual) Percent Retic Haptoglobin PT INR Fibrinogen D-Dimer POC ABG pH POC ABG pCO2 POC ABG pO2 Sodium 149 H Potassium 3.2 L Chloride 111.8 H Carbon Dioxide 17 L BUN 26 H Creatinine 3.4 H Glucose 163 H POC Glucose 204 H 203 H Lactic Acid Calcium 7.7 L Phosphorus 2.40 L D Magnesium Iron TIBC Transferrin Total Bilirubin Direct Bilirubin AST ALT Alkaline Phosphatase Lactate Dehydrogenase CK-MB (CK-2) Troponin T C-Reactive Protein Total Protein Albumin Triglycerides Cholesterol HDL Cholesterol Vitamin B12 Urine Creatinine Urine Total Protein Heparin-induced Plt Ab Hep Bs Antibody, Quant Crossmatch 12/08/16 12/08/16 12/08/16 08:04 08:46 08:46 WBC RBC Hgb Hct MCV MCHC RDW Plt Count Lymph % (Auto) [place]nn % (Auto) [place] # Baso # Seg Neutrophils % Seg Neuts % (Manual) Lymphocytes % (Manual) Monocytes % (Manual) Nucleated RBC % Seg Neutrophils # Seg Neutrophils # Man Lymphocytes # (Manual) Monocytes # (Manual) Percent Retic Haptoglobin PT INR Fibrinogen D-Dimer POC ABG pH POC ABG pCO2 POC ABG pO2 Sodium 147 H Potassium 2.9 L* Chloride 110.6 H Carbon Dioxide 17 L BUN 28 H Creatinine 3.6 H Glucose 127 H POC Glucose 205 H Lactic Acid Calcium 7.3 L Phosphorus Magnesium Iron TIBC Transferrin Total Bilirubin Direct Bilirubin AST ALT Alkaline Phosphatase Lactate Dehydrogenase CK-MB (CK-2) Troponin T C-Reactive Protein Total Protein Albumin Triglycerides Cholesterol HDL Cholesterol Vitamin B12 Urine Creatinine Urine Total Protein Heparin-induced Plt Ab Hep Bs Antibody, Quant Crossmatch See Detail 12/08/16 12/08/16 12/08/16 12:36 19:00 19:00 WBC RBC Hgb Hct MCV MCHC RDW Plt Count Lymph % (Auto) [place]nn % (Auto) [place] # Baso # Seg Neutrophils % Seg Neuts % (Manual) Lymphocytes % (Manual) Monocytes % (Manual) Nucleated RBC % Seg Neutrophils # Seg Neutrophils # Man Lymphocytes # (Manual) Monocytes # (Manual) Percent Retic Haptoglobin PT 15.3 H INR 1.22 H Fibrinogen 563 H D-Dimer 5507.36 H POC ABG pH POC ABG pCO2 POC ABG pO2 Sodium Potassium Chloride Carbon Dioxide 21 L BUN Creatinine 1.7 H D Glucose 155 H POC Glucose 181 H Lactic Acid Calcium Phosphorus Magnesium Iron TIBC Transferrin Total Bilirubin Direct Bilirubin AST ALT Alkaline Phosphatase Lactate Dehydrogenase CK-MB (CK-2) Troponin T C-Reactive Protein Total Protein Albumin Triglycerides Cholesterol HDL Cholesterol Vitamin B12 Urine Creatinine Urine Total Protein Heparin-induced Plt Ab Hep Bs Antibody, Quant Crossmatch 12/08/16 12/08/16 12/08/16 19:00 19:00 21:30 WBC RBC 2.76 L Hgb 7.8 L Hct 23.7 L MCV MCHC RDW 17.0 H Plt Count 38 L Lymph % (Auto) [place]nn % (Auto) [place]nn # Baso # Seg Neutrophils % Seg Neuts % (Manual) Lymphocytes % (Manual) Monocytes % (Manual) Nucleated RBC % Seg Neutrophils # Seg Neutrophils # Man Lymphocytes # (Manual) Monocytes # (Manual) Percent Retic Haptoglobin 271 H PT INR Fibrinogen D-Dimer POC ABG pH POC ABG pCO2 POC ABG pO2 Sodium Potassium Chloride Carbon Dioxide BUN Creatinine Glucose POC Glucose Lactic Acid Calcium Phosphorus Magnesium Iron TIBC Transferrin Total Bilirubin Direct Bilirubin AST ALT Alkaline Phosphatase Lactate Dehydrogenase 382 H CK-MB (CK-2) Troponin T C-Reactive Protein Total Protein Albumin Triglycerides Cholesterol HDL Cholesterol Vitamin B12 Urine Creatinine Urine Total Protein Heparin-induced Plt Ab Hep Bs Antibody, Quant Crossmatch 12/08/16 12/08/16 12/09/16 23:32 23:44 05:22 WBC RBC Hgb Hct MCV MCHC RDW Plt Count Lymph % (Auto) [place]nn % (Auto) [place] # Baso # Seg Neutrophils % Seg Neuts % (Manual) Lymphocytes % (Manual) Monocytes % (Manual) Nucleated RBC % Seg Neutrophils # Seg Neutrophils # Man Lymphocytes # (Manual) Monocytes # (Manual) Percent Retic Haptoglobin PT INR Fibrinogen D-Dimer POC ABG pH 7.498 H POC ABG pCO2 25.2 L POC ABG pO2 137 H Sodium Potassium Chloride Carbon Dioxide BUN Creatinine Glucose POC Glucose 311 H 113 H Lactic Acid Calcium Phosphorus Magnesium Iron TIBC Transferrin Total Bilirubin Direct Bilirubin AST ALT Alkaline Phosphatase Lactate Dehydrogenase CK-MB (CK-2) Troponin T C-Reactive Protein Total Protein Albumin Triglycerides Cholesterol HDL Cholesterol Vitamin B12 Urine Creatinine Urine Total Protein Heparin-induced Plt Ab Hep Bs Antibody, Quant Crossmatch 12/09/16 12/09/16 12/09/16 06:00 11:29 11:59 WBC RBC Hgb Hct MCV MCHC RDW Plt Count Lymph % (Auto) [place]nn % (Auto) [place] # Baso # Seg Neutrophils % Seg Neuts % (Manual) Lymphocytes % (Manual) Monocytes % (Manual) Nucleated RBC % Seg Neutrophils # Seg Neutrophils # Man Lymphocytes # (Manual) Monocytes # (Manual) Percent Retic 0.23 L Haptoglobin PT INR Fibrinogen D-Dimer POC ABG pH POC ABG pCO2 POC ABG pO2 Sodium Potassium Chloride 110.2 H Carbon Dioxide 18 L BUN 19 H Creatinine 2.5 H Glucose 105 H POC Glucose 254 H Lactic Acid Calcium Phosphorus 2.00 L Magnesium Iron TIBC Transferrin Total Bilirubin Direct Bilirubin AST ALT Alkaline Phosphatase Lactate Dehydrogenase CK-MB (CK-2) Troponin T C-Reactive Protein Total Protein Albumin Triglycerides Cholesterol HDL Cholesterol Vitamin B12 Urine Creatinine Urine Total Protein Heparin-induced Plt Ab Hep Bs Antibody, Quant Crossmatch 12/09/16 12/09/16 12/09/16 12:02 13:27 13:27 WBC RBC Hgb Hct MCV MCHC RDW Plt Count Lymph % (Auto) [place]nn % (Auto) [place] # Baso # Seg Neutrophils % Seg Neuts % (Manual) Lymphocytes % (Manual) Monocytes % (Manual) Nucleated RBC % Seg Neutrophils # Seg Neutrophils # Man Lymphocytes # (Manual) Monocytes # (Manual) Percent Retic Haptoglobin PT INR Fibrinogen D-Dimer POC ABG pH 7.326 L POC ABG pCO2 POC ABG pO2 115 H Sodium Potassium Chloride Carbon Dioxide BUN Creatinine Glucose POC Glucose Lactic Acid Calcium Phosphorus Magnesium Iron 15 L TIBC 134 L Transferrin Total Bilirubin Direct Bilirubin AST ALT Alkaline Phosphatase Lactate Dehydrogenase CK-MB (CK-2) Troponin T C-Reactive Protein Total Protein Albumin Triglycerides Cholesterol HDL Cholesterol Vitamin B12 > 2000 H Urine Creatinine Urine Total Protein Heparin-induced Plt Ab Hep Bs Antibody, Quant Crossmatch 12/09/16 12/09/16 12/09/16 13:27 13:27 16:28 WBC RBC Hgb Hct MCV MCHC RDW Plt Count Lymph % (Auto) [place]nn % (Auto) [place] # Baso # Seg Neutrophils % Seg Neuts % (Manual) Lymphocytes % (Manual) Monocytes % (Manual) Nucleated RBC % Seg Neutrophils # Seg Neutrophils # Man Lymphocytes # (Manual) Monocytes # (Manual) Percent Retic Haptoglobin PT INR Fibrinogen D-Dimer POC ABG pH POC ABG pCO2 POC ABG pO2 Sodium Potassium Chloride Carbon Dioxide BUN Creatinine Glucose POC Glucose 199 H Lactic Acid Calcium Phosphorus Magnesium Iron TIBC Transferrin Total Bilirubin Direct Bilirubin AST ALT Alkaline Phosphatase Lactate Dehydrogenase CK-MB (CK-2) Troponin T C-Reactive Protein Total Protein Albumin Triglycerides Cholesterol HDL Cholesterol Vitamin B12 Urine Creatinine Urine Total Protein Heparin-induced Plt Ab Weak positive H Hep Bs Antibody, Quant <5 L Crossmatch 12/09/16 12/09/16 12/10/16 23:27 Unknown 05:36 WBC 11.3 H RBC 2.92 L Hgb 8.4 L Hct 25.3 L MCV MCHC RDW 16.9 H Plt Count 31 L Lymph % (Auto) [place]nn % (Auto) [place]nn # Baso # Seg Neutrophils % Seg Neuts % (Manual) Lymphocytes % (Manual) Monocytes % (Manual) Nucleated RBC % Seg Neutrophils # Seg Neutrophils # Man Lymphocytes # (Manual) Monocytes # (Manual) Percent Retic Haptoglobin PT INR Fibrinogen D-Dimer POC ABG pH POC ABG pCO2 POC ABG pO2 Sodium Potassium Chloride Carbon Dioxide BUN Creatinine Glucose POC Glucose 247 H 248 H Lactic Acid Calcium Phosphorus Magnesium Iron TIBC Transferrin Total Bilirubin Direct Bilirubin AST ALT Alkaline Phosphatase Lactate Dehydrogenase CK-MB (CK-2) Troponin T C-Reactive Protein Total Protein Albumin Triglycerides Cholesterol HDL Cholesterol Vitamin B12 Urine Creatinine Urine Total Protein Heparin-induced Plt Ab Hep Bs Antibody, Quant Crossmatch 12/10/16 12/10/16 12/10/16 09:55 09:55 11:49 WBC 21.2 H RBC 3.37 L Hgb 9.6 L Hct 29.5 L MCV MCHC RDW 16.3 H Plt Count 102 L D Lymph % (Auto) [place]nn % (Auto) [place]nn # Baso # Seg Neutrophils % Seg Neuts % (Manual) Lymphocytes % (Manual) Monocytes % (Manual) Nucleated RBC % Seg Neutrophils # Seg Neutrophils # Man Lymphocytes # (Manual) Monocytes # (Manual) Percent Retic Haptoglobin PT INR Fibrinogen D-Dimer POC ABG pH POC ABG pCO2 POC ABG pO2 Sodium Potassium Chloride 107.4 H Carbon Dioxide 21 L BUN 37 H Creatinine 4.2 H D Glucose 174 H POC Glucose 265 H Lactic Acid Calcium Phosphorus Magnesium Iron TIBC Transferrin Total Bilirubin Direct Bilirubin AST ALT Alkaline Phosphatase Lactate Dehydrogenase CK-MB (CK-2) Troponin T C-Reactive Protein Total Protein Albumin Triglycerides Cholesterol HDL Cholesterol Vitamin B12 Urine Creatinine Urine Total Protein Heparin-induced Plt Ab Hep Bs Antibody, Quant Crossmatch 12/10/16 12/10/16 12/11/16 17:56 23:44 04:30 WBC 23.5 H RBC 3.46 L Hgb 9.7 L Hct 30.1 L MCV MCHC RDW 16.4 H Plt Count 115 L Lymph % (Auto) [place]nn % (Auto) [place]nn # Baso # Seg Neutrophils % Seg Neuts % (Manual) 84.0 H Lymphocytes % (Manual) 5.0 L Monocytes % (Manual) 10.0 H Nucleated RBC % 1.0 H Seg Neutrophils # Seg Neutrophils # Man 19.7 H Lymphocytes # (Manual) Monocytes # (Manual) 2.4 H Percent Retic Haptoglobin PT INR Fibrinogen D-Dimer POC ABG pH POC ABG pCO2 POC ABG pO2 Sodium Potassium Chloride Carbon Dioxide BUN Creatinine Glucose POC Glucose 118 H 378 H Lactic Acid Calcium Phosphorus Magnesium Iron TIBC Transferrin Total Bilirubin Direct Bilirubin AST ALT Alkaline Phosphatase Lactate Dehydrogenase CK-MB (CK-2) Troponin T C-Reactive Protein Total Protein Albumin Triglycerides Cholesterol HDL Cholesterol Vitamin B12 Urine Creatinine Urine Total Protein Heparin-induced Plt Ab Hep Bs Antibody, Quant Crossmatch 12/11/16 12/11/16 12/11/16 04:30 05:33 12:48 WBC RBC Hgb Hct MCV MCHC RDW Plt Count Lymph % (Auto) [place]nn % (Auto) [place] # Baso # Seg Neutrophils % Seg Neuts % (Manual) Lymphocytes % (Manual) Monocytes % (Manual) Nucleated RBC % Seg Neutrophils # Seg Neutrophils # Man Lymphocytes # (Manual) Monocytes # (Manual) Percent Retic Haptoglobin PT INR Fibrinogen D-Dimer POC ABG pH POC ABG pCO2 POC ABG pO2 Sodium Potassium Chloride Carbon Dioxide 21 L BUN 50 H Creatinine 4.8 H Glucose 303 H POC Glucose 335 H 325 H Lactic Acid Calcium 8.2 L Phosphorus Magnesium Iron TIBC Transferrin Total Bilirubin Direct Bilirubin AST ALT Alkaline Phosphatase Lactate Dehydrogenase CK-MB (CK-2) Troponin T C-Reactive Protein Total Protein Albumin Triglycerides Cholesterol HDL Cholesterol Vitamin B12 Urine Creatinine Urine Total Protein Heparin-induced Plt Ab Hep Bs Antibody, Quant Crossmatch 12/11/16 12/11/16 12/12/16 17:49 21:16 00:49 WBC RBC Hgb Hct MCV MCHC RDW Plt Count Lymph % (Auto) [place]nn % (Auto) [place] # Baso # Seg Neutrophils % Seg Neuts % (Manual) Lymphocytes % (Manual) Monocytes % (Manual) Nucleated RBC % Seg Neutrophils # Seg Neutrophils # Man Lymphocytes # (Manual) Monocytes # (Manual) Percent Retic Haptoglobin PT INR Fibrinogen D-Dimer POC ABG pH POC ABG pCO2 POC ABG pO2 Sodium Potassium Chloride Carbon Dioxide BUN Creatinine Glucose POC Glucose 368 H 162 H 225 H Lactic Acid Calcium Phosphorus Magnesium Iron TIBC Transferrin Total Bilirubin Direct Bilirubin AST ALT Alkaline Phosphatase Lactate Dehydrogenase CK-MB (CK-2) Troponin T C-Reactive Protein Total Protein Albumin Triglycerides Cholesterol HDL Cholesterol Vitamin B12 Urine Creatinine Urine Total Protein Heparin-induced Plt Ab Hep Bs Antibody, Quant Crossmatch 12/12/16 12/12/16 12/12/16 06:09 07:52 08:18 WBC 24.1 H RBC 3.16 L Hgb 9.0 L Hct 29.4 L MCV MCHC RDW 16.6 H Plt Count 96 L Lymph % (Auto) [place]nn % (Auto) [place] # Baso # Seg Neutrophils % Seg Neuts % (Manual) 75.0 H Lymphocytes % (Manual) Monocytes % (Manual) Nucleated RBC % Seg Neutrophils # Seg Neutrophils # Man 18.1 H Lymphocytes # (Manual) Monocytes # (Manual) 1.4 H Percent Retic Haptoglobin PT INR Fibrinogen D-Dimer POC ABG pH POC ABG pCO2 POC ABG pO2 Sodium Potassium Chloride Carbon Dioxide BUN Creatinine Glucose POC Glucose 428 H 418 H Lactic Acid Calcium Phosphorus Magnesium Iron TIBC Transferrin Total Bilirubin Direct Bilirubin AST ALT Alkaline Phosphatase Lactate Dehydrogenase CK-MB (CK-2) Troponin T C-Reactive Protein Total Protein Albumin Triglycerides Cholesterol HDL Cholesterol Vitamin B12 Urine Creatinine Urine Total Protein Heparin-induced Plt Ab Hep Bs Antibody, Quant Crossmatch 12/12/16 12/12/16 12/12/16 08:18 11:31 17:03 WBC RBC Hgb Hct MCV MCHC RDW Plt Count Lymph % (Auto) [place]nn % (Auto) [place] # Baso # Seg Neutrophils % Seg Neuts % (Manual) Lymphocytes % (Manual) Monocytes % (Manual) Nucleated RBC % Seg Neutrophils # Seg Neutrophils # Man Lymphocytes # (Manual) Monocytes # (Manual) Percent Retic Haptoglobin PT INR Fibrinogen D-Dimer POC ABG pH POC ABG pCO2 POC ABG pO2 Sodium Potassium Chloride Carbon Dioxide 12 L D BUN 41 H Creatinine 4.5 H Glucose 369 H POC Glucose 212 H 422 H Lactic Acid Calcium Phosphorus Magnesium Iron TIBC Transferrin Total Bilirubin Direct Bilirubin AST ALT Alkaline Phosphatase Lactate Dehydrogenase CK-MB (CK-2) Troponin T C-Reactive Protein Total Protein Albumin Triglycerides Cholesterol HDL Cholesterol Vitamin B12 Urine Creatinine Urine Total Protein Heparin-induced Plt Ab Hep Bs Antibody, Quant Crossmatch 12/12/16 12/13/16 12/13/16 21:35 07:49 07:49 WBC 24.0 H RBC 2.90 L Hgb 8.3 L Hct 25.8 L MCV MCHC RDW 15.5 H Plt Count 120 L Lymph % (Auto) [place]nn % (Auto) [place]nn # Baso # Seg Neutrophils % Seg Neuts % (Manual) 89.0 H Lymphocytes % (Manual) 7.0 L Monocytes % (Manual) Nucleated RBC % Seg Neutrophils # Seg Neutrophils # Man 21.4 H Lymphocytes # (Manual) Monocytes # (Manual) Percent Retic Haptoglobin PT INR Fibrinogen D-Dimer POC ABG pH POC ABG pCO2 POC ABG pO2 Sodium Potassium 3.2 L Chloride Carbon Dioxide BUN 21 H Creatinine 3.0 H Glucose 21 L* POC Glucose 185 H Lactic Acid Calcium Phosphorus Magnesium Iron TIBC Transferrin Total Bilirubin Direct Bilirubin AST ALT Alkaline Phosphatase Lactate Dehydrogenase CK-MB (CK-2) Troponin T C-Reactive Protein Total Protein Albumin Triglycerides Cholesterol HDL Cholesterol Vitamin B12 Urine Creatinine Urine Total Protein Heparin-induced Plt Ab Hep Bs Antibody, Quant Crossmatch 12/13/16 12/13/16 12/13/16 09:57 11:02 16:52 WBC RBC Hgb Hct MCV MCHC RDW Plt Count Lymph % (Auto) [place]nn % (Auto) [place] # Baso # Seg Neutrophils % Seg Neuts % (Manual) Lymphocytes % (Manual) Monocytes % (Manual) Nucleated RBC % Seg Neutrophils # Seg Neutrophils # Man Lymphocytes # (Manual) Monocytes # (Manual) Percent Retic Haptoglobin PT INR Fibrinogen D-Dimer POC ABG pH POC ABG pCO2 POC ABG pO2 Sodium Potassium Chloride Carbon Dioxide BUN Creatinine Glucose POC Glucose < 40 L 231 H 312 H Lactic Acid Calcium Phosphorus Magnesium Iron TIBC Transferrin Total Bilirubin Direct Bilirubin AST ALT Alkaline Phosphatase Lactate Dehydrogenase CK-MB (CK-2) Troponin T C-Reactive Protein Total Protein Albumin Triglycerides Cholesterol HDL Cholesterol Vitamin B12 Urine Creatinine Urine Total Protein Heparin-induced Plt Ab Hep Bs Antibody, Quant Crossmatch 12/13/16 12/14/16 12/14/16 21:32 07:07 07:07 WBC 16.7 H RBC 2.80 L Hgb 7.9 L Hct 24.7 L MCV MCHC RDW 15.4 H Plt Count 131 L Lymph % (Auto) 13.1 L [place]nn % (Auto) [place]nn # 1.2 H Baso # Seg Neutrophils % 78.3 H Seg Neuts % (Manual) Lymphocytes % (Manual) Monocytes % (Manual) Nucleated RBC % Seg Neutrophils # 13.1 H Seg Neutrophils # Man Lymphocytes # (Manual) Monocytes # (Manual) Percent Retic Haptoglobin PT INR Fibrinogen D-Dimer POC ABG pH POC ABG pCO2 POC ABG pO2 Sodium Potassium 3.5 L Chloride Carbon Dioxide BUN 30 H Creatinine 4.6 H D Glucose 181 H POC Glucose 275 H Lactic Acid Calcium 7.7 L Phosphorus Magnesium Iron TIBC Transferrin Total Bilirubin Direct Bilirubin AST ALT Alkaline Phosphatase Lactate Dehydrogenase CK-MB (CK-2) Troponin T C-Reactive Protein Total Protein Albumin Triglycerides Cholesterol HDL Cholesterol Vitamin B12 Urine Creatinine Urine Total Protein Heparin-induced Plt Ab Hep Bs Antibody, Quant Crossmatch 12/14/16 12/14/16 12/14/16 07:46 11:35 16:24 WBC RBC Hgb Hct MCV MCHC RDW Plt Count Lymph % (Auto) Glynn % (Auto) Glynn # Baso # Seg Neutrophils % Seg Neuts % (Manual) Lymphocytes % (Manual) Monocytes % (Manual) Nucleated RBC % Seg Neutrophils # Seg Neutrophils # Man Lymphocytes # (Manual) Monocytes # (Manual) Percent Retic Haptoglobin PT INR Fibrinogen D-Dimer POC ABG pH POC ABG pCO2 POC ABG pO2 Sodium Potassium Chloride Carbon Dioxide BUN Creatinine Glucose POC Glucose 189 H 254 H 466 H Lactic Acid Calcium Phosphorus Magnesium Iron TIBC Transferrin Total Bilirubin Direct Bilirubin AST ALT Alkaline Phosphatase Lactate Dehydrogenase CK-MB (CK-2) Troponin T C-Reactive Protein Total Protein Albumin Triglycerides Cholesterol HDL Cholesterol Vitamin B12 Urine Creatinine Urine Total Protein Heparin-induced Plt Ab Hep Bs Antibody, Quant Crossmatch 12/14/16 12/15/16 12/15/16 20:57 06:27 07:46 WBC RBC Hgb Hct MCV MCHC RDW Plt Count Lymph % (Auto) [place]nn % (Auto) [place]nn # Baso # Seg Neutrophils % Seg Neuts % (Manual) Lymphocytes % (Manual) Monocytes % (Manual) Nucleated RBC % Seg Neutrophils # Seg Neutrophils # Man Lymphocytes # (Manual) Monocytes # (Manual) Percent Retic Haptoglobin PT INR Fibrinogen D-Dimer POC ABG pH POC ABG pCO2 POC ABG pO2 Sodium Potassium Chloride Carbon Dioxide BUN Creatinine Glucose POC Glucose 301 H 183 H 231 H Lactic Acid Calcium Phosphorus Magnesium Iron TIBC Transferrin Total Bilirubin Direct Bilirubin AST ALT Alkaline Phosphatase Lactate Dehydrogenase CK-MB (CK-2) Troponin T C-Reactive Protein Total Protein Albumin Triglycerides Cholesterol HDL Cholesterol Vitamin B12 Urine Creatinine Urine Total Protein Heparin-induced Plt Ab Hep Bs Antibody, Quant Crossmatch 12/15/16 12/15/16 12/15/16 11:38 15:34 20:51 WBC RBC Hgb Hct MCV MCHC RDW Plt Count Lymph % (Auto) [place]nn % (Auto) [place]nn # Baso # Seg Neutrophils % Seg Neuts % (Manual) Lymphocytes % (Manual) Monocytes % (Manual) Nucleated RBC % Seg Neutrophils # Seg Neutrophils # Man Lymphocytes # (Manual) Monocytes # (Manual) Percent Retic Haptoglobin PT INR Fibrinogen D-Dimer POC ABG pH POC ABG pCO2 POC ABG pO2 Sodium Potassium Chloride Carbon Dioxide BUN Creatinine Glucose POC Glucose 375 H 313 H 274 H Lactic Acid Calcium Phosphorus Magnesium Iron TIBC Transferrin Total Bilirubin Direct Bilirubin AST ALT Alkaline Phosphatase Lactate Dehydrogenase CK-MB (CK-2) Troponin T C-Reactive Protein Total Protein Albumin Triglycerides Cholesterol HDL Cholesterol Vitamin B12 Urine Creatinine Urine Total Protein Heparin-induced Plt Ab Hep Bs Antibody, Quant Crossmatch 12/16/16 12/16/16 12/16/16 08:26 09:12 17:13 WBC RBC Hgb Hct MCV MCHC RDW Plt Count Lymph % (Auto) [place]nn % (Auto) [place]nn # Baso # Seg Neutrophils % Seg Neuts % (Manual) Lymphocytes % (Manual) Monocytes % (Manual) Nucleated RBC % Seg Neutrophils # Seg Neutrophils # Man Lymphocytes # (Manual) Monocytes # (Manual) Percent Retic Haptoglobin PT INR Fibrinogen D-Dimer POC ABG pH POC ABG pCO2 POC ABG pO2 Sodium Potassium Chloride Carbon Dioxide BUN Creatinine Glucose POC Glucose 59 L 127 H > 500 H Lactic Acid Calcium Phosphorus Magnesium Iron TIBC Transferrin Total Bilirubin Direct Bilirubin AST ALT Alkaline Phosphatase Lactate Dehydrogenase CK-MB (CK-2) Troponin T C-Reactive Protein Total Protein Albumin Triglycerides Cholesterol HDL Cholesterol Vitamin B12 Urine Creatinine Urine Total Protein Heparin-induced Plt Ab Hep Bs Antibody, Quant Crossmatch 12/16/16 12/16/16 12/16/16 22:59 Unknown Unknown WBC 17.2 H RBC 2.83 L Hgb 7.9 L Hct 24.4 L MCV MCHC RDW Plt Count Lymph % (Auto) 9.2 L Glynn % (Auto) Glynn # 0.9 H Baso # Seg Neutrophils % 84.1 H Seg Neuts % (Manual) Lymphocytes % (Manual) Monocytes % (Manual) Nucleated RBC % Seg Neutrophils # 14.5 H Seg Neutrophils # Man Lymphocytes # (Manual) Monocytes # (Manual) Percent Retic Haptoglobin PT INR Fibrinogen D-Dimer POC ABG pH POC ABG pCO2 POC ABG pO2 Sodium Potassium Chloride Carbon Dioxide BUN 43 H Creatinine 5.4 H Glucose 131 H POC Glucose 320 H Lactic Acid Calcium 6.9 L Phosphorus Magnesium Iron TIBC Transferrin Total Bilirubin Direct Bilirubin AST ALT Alkaline Phosphatase Lactate Dehydrogenase CK-MB (CK-2) Troponin T C-Reactive Protein Total Protein Albumin Triglycerides Cholesterol HDL Cholesterol Vitamin B12 Urine Creatinine Urine Total Protein Heparin-induced Plt Ab Hep Bs Antibody, Quant Crossmatch 12/17/16 12/17/16 12/17/16 08:26 08:56 09:52 WBC RBC Hgb Hct MCV MCHC RDW Plt Count Lymph % (Auto) [place]nn % (Auto) [place]nn # Baso # Seg Neutrophils % Seg Neuts % (Manual) Lymphocytes % (Manual) Monocytes % (Manual) Nucleated RBC % Seg Neutrophils # Seg Neutrophils # Man Lymphocytes # (Manual) Monocytes # (Manual) Percent Retic Haptoglobin PT INR Fibrinogen D-Dimer POC ABG pH POC ABG pCO2 POC ABG pO2 Sodium Potassium Chloride Carbon Dioxide BUN Creatinine Glucose POC Glucose < 40 L 40 L 133 H Lactic Acid Calcium Phosphorus Magnesium Iron TIBC Transferrin Total Bilirubin Direct Bilirubin AST ALT Alkaline Phosphatase Lactate Dehydrogenase CK-MB (CK-2) Troponin T C-Reactive Protein Total Protein Albumin Triglycerides Cholesterol HDL Cholesterol Vitamin B12 Urine Creatinine Urine Total Protein Heparin-induced Plt Ab Hep Bs Antibody, Quant Crossmatch 12/17/16 12/17/16 12/17/16 12:51 16:08 21:00 WBC RBC Hgb Hct MCV MCHC RDW Plt Count Lymph % (Auto) [place]nn % (Auto) [place]nn # Baso # Seg Neutrophils % Seg Neuts % (Manual) Lymphocytes % (Manual) Monocytes % (Manual) Nucleated RBC % Seg Neutrophils # Seg Neutrophils # Man Lymphocytes # (Manual) Monocytes # (Manual) Percent Retic Haptoglobin PT INR Fibrinogen D-Dimer POC ABG pH POC ABG pCO2 POC ABG pO2 Sodium Potassium Chloride Carbon Dioxide BUN Creatinine Glucose POC Glucose 177 H 303 H 489 H Lactic Acid Calcium Phosphorus Magnesium Iron TIBC Transferrin Total Bilirubin Direct Bilirubin AST ALT Alkaline Phosphatase Lactate Dehydrogenase CK-MB (CK-2) Troponin T C-Reactive Protein Total Protein Albumin Triglycerides Cholesterol HDL Cholesterol Vitamin B12 Urine Creatinine Urine Total Protein Heparin-induced Plt Ab Hep Bs Antibody, Quant Crossmatch 12/17/16 12/17/16 12/18/16 Unknown Unknown 05:50 WBC 16.6 H 15.6 H RBC 2.63 L 2.58 L Hgb 7.5 L 7.3 L Hct 23.3 L 23.0 L MCV MCHC RDW 15.3 H 15.9 H Plt Count Lymph % (Auto) 7.7 L 8.7 L Glynn % (Auto) Glynn # 0.9 H Baso # Seg Neutrophils % 85.8 H 83.6 H Seg Neuts % (Manual) Lymphocytes % (Manual) Monocytes % (Manual) Nucleated RBC % Seg Neutrophils # 14.3 H 13.0 H Seg Neutrophils # Man Lymphocytes # (Manual) Monocytes # (Manual) Percent Retic Haptoglobin PT INR Fibrinogen D-Dimer POC ABG pH POC ABG pCO2 POC ABG pO2 Sodium Potassium 3.5 L Chloride Carbon Dioxide BUN 47 H Creatinine 5.2 H Glucose 173 H POC Glucose Lactic Acid Calcium 6.9 L Phosphorus Magnesium Iron TIBC Transferrin Total Bilirubin Direct Bilirubin AST ALT Alkaline Phosphatase Lactate Dehydrogenase CK-MB (CK-2) Troponin T C-Reactive Protein Total Protein Albumin Triglycerides Cholesterol HDL Cholesterol Vitamin B12 Urine Creatinine Urine Total Protein Heparin-induced Plt Ab Hep Bs Antibody, Quant Crossmatch 12/18/16 12/18/16 12/18/16 05:50 09:09 16:46 WBC RBC Hgb Hct MCV MCHC RDW Plt Count Lymph % (Auto) [place]nn % (Auto) [place]nn # Baso # Seg Neutrophils % Seg Neuts % (Manual) Lymphocytes % (Manual) Monocytes % (Manual) Nucleated RBC % Seg Neutrophils # Seg Neutrophils # Man Lymphocytes # (Manual) Monocytes # (Manual) Percent Retic Haptoglobin PT INR Fibrinogen D-Dimer POC ABG pH POC ABG pCO2 POC ABG pO2 Sodium Potassium Chloride Carbon Dioxide 17 L BUN 46 H Creatinine 5.0 H Glucose 252 H POC Glucose 349 H 324 H Lactic Acid Calcium 6.8 L Phosphorus Magnesium Iron TIBC Transferrin Total Bilirubin Direct Bilirubin AST ALT Alkaline Phosphatase Lactate Dehydrogenase CK-MB (CK-2) Troponin T C-Reactive Protein Total Protein Albumin Triglycerides Cholesterol HDL Cholesterol Vitamin B12 Urine Creatinine Urine Total Protein Heparin-induced Plt Ab Hep Bs Antibody, Quant Crossmatch 12/18/16 12/19/16 12/19/16 21:14 08:12 10:23 WBC 13.7 H RBC 2.60 L Hgb 7.5 L Hct 23.1 L MCV MCHC RDW 15.7 H Plt Count Lymph % (Auto) 9.1 L Glynn % (Auto) Glynn # 0.9 H Baso # Seg Neutrophils % 82.2 H Seg Neuts % (Manual) Lymphocytes % (Manual) Monocytes % (Manual) Nucleated RBC % Seg Neutrophils # 11.3 H Seg Neutrophils # Man Lymphocytes # (Manual) Monocytes # (Manual) Percent Retic Haptoglobin PT INR Fibrinogen D-Dimer POC ABG pH POC ABG pCO2 POC ABG pO2 Sodium Potassium Chloride Carbon Dioxide BUN Creatinine Glucose POC Glucose 316 H 464 H Lactic Acid Calcium Phosphorus Magnesium Iron TIBC Transferrin Total Bilirubin Direct Bilirubin AST ALT Alkaline Phosphatase Lactate Dehydrogenase CK-MB (CK-2) Troponin T C-Reactive Protein Total Protein Albumin Triglycerides Cholesterol HDL Cholesterol Vitamin B12 Urine Creatinine Urine Total Protein Heparin-induced Plt Ab Hep Bs Antibody, Quant Crossmatch 12/19/16 12/19/16 12/19/16 10:23 11:39 16:00 WBC RBC Hgb Hct MCV MCHC RDW Plt Count Lymph % (Auto) [place]nn % (Auto) [place]nn # Baso # Seg Neutrophils % Seg Neuts % (Manual) Lymphocytes % (Manual) Monocytes % (Manual) Nucleated RBC % Seg Neutrophils # Seg Neutrophils # Man Lymphocytes # (Manual) Monocytes # (Manual) Percent Retic Haptoglobin PT INR Fibrinogen D-Dimer POC ABG pH POC ABG pCO2 POC ABG pO2 Sodium Potassium 3.5 L Chloride Carbon Dioxide 14 L BUN 22 H Creatinine 3.2 H Glucose 446 H POC Glucose 344 H 467 H Lactic Acid Calcium 6.9 L Phosphorus 1.70 L D Magnesium Iron TIBC Transferrin Total Bilirubin Direct Bilirubin AST ALT Alkaline Phosphatase Lactate Dehydrogenase CK-MB (CK-2) Troponin T C-Reactive Protein Total Protein Albumin Triglycerides Cholesterol HDL Cholesterol Vitamin B12 Urine Creatinine Urine Total Protein Heparin-induced Plt Ab Hep Bs Antibody, Quant Crossmatch 12/19/16 12/19/16 12/19/16 16:35 16:35 21:16 WBC 19.3 H RBC 2.37 L Hgb 6.9 L Hct 21.8 L MCV MCHC RDW 16.7 H Plt Count Lymph % (Auto) [place]nn % (Auto) [place]nn # Baso # Seg Neutrophils % Seg Neuts % (Manual) Lymphocytes % (Manual) Monocytes % (Manual) Nucleated RBC % Seg Neutrophils # Seg Neutrophils # Man Lymphocytes # (Manual) Monocytes # (Manual) Percent Retic Haptoglobin PT INR Fibrinogen D-Dimer POC ABG pH POC ABG pCO2 POC ABG pO2 Sodium Potassium 3.4 L Chloride Carbon Dioxide 17 L BUN 23 H Creatinine 3.2 H Glucose 427 H POC Glucose 397 H Lactic Acid Calcium 6.9 L Phosphorus 2.40 L D Magnesium Iron TIBC Transferrin Total Bilirubin Direct Bilirubin AST ALT Alkaline Phosphatase Lactate Dehydrogenase CK-MB (CK-2) Troponin T C-Reactive Protein Total Protein Albumin Triglycerides Cholesterol HDL Cholesterol Vitamin B12 Urine Creatinine Urine Total Protein Heparin-induced Plt Ab Hep Bs Antibody, Quant Crossmatch 12/20/16 12/20/16 12/20/16 06:00 06:00 07:55 WBC 17.5 H RBC 2.54 L Hgb 7.3 L Hct 23.5 L MCV MCHC RDW 16.4 H Plt Count Lymph % (Auto) 9.0 L Glynn % (Auto) Glynn # 1.1 H Baso # Seg Neutrophils % 83.0 H Seg Neuts % (Manual) Lymphocytes % (Manual) Monocytes % (Manual) Nucleated RBC % Seg Neutrophils # 14.5 H Seg Neutrophils # Man Lymphocytes # (Manual) Monocytes # (Manual) Percent Retic Haptoglobin PT INR Fibrinogen D-Dimer POC ABG pH POC ABG pCO2 POC ABG pO2 Sodium 136 L Potassium Chloride 92.4 L Carbon Dioxide 15 L BUN Creatinine 2.6 H Glucose 475 H POC Glucose > 500 H Lactic Acid Calcium Phosphorus Magnesium Iron TIBC Transferrin Total Bilirubin Direct Bilirubin AST ALT Alkaline Phosphatase Lactate Dehydrogenase CK-MB (CK-2) Troponin T C-Reactive Protein Total Protein Albumin Triglycerides Cholesterol HDL Cholesterol Vitamin B12 Urine Creatinine Urine Total Protein Heparin-induced Plt Ab Hep Bs Antibody, Quant Crossmatch 12/20/16 12/20/16 12/20/16 11:21 16:01 22:33 WBC RBC Hgb Hct MCV MCHC RDW Plt Count Lymph % (Auto) [place]nn % (Auto) [place]nn # Baso # Seg Neutrophils % Seg Neuts % (Manual) Lymphocytes % (Manual) Monocytes % (Manual) Nucleated RBC % Seg Neutrophils # Seg Neutrophils # Man Lymphocytes # (Manual) Monocytes # (Manual) Percent Retic Haptoglobin PT INR Fibrinogen D-Dimer POC ABG pH POC ABG pCO2 POC ABG pO2 Sodium Potassium Chloride Carbon Dioxide BUN Creatinine Glucose POC Glucose > 500 H 446 H > 500 H Lactic Acid Calcium Phosphorus Magnesium Iron TIBC Transferrin Total Bilirubin Direct Bilirubin AST ALT Alkaline Phosphatase Lactate Dehydrogenase CK-MB (CK-2) Troponin T C-Reactive Protein Total Protein Albumin Triglycerides Cholesterol HDL Cholesterol Vitamin B12 Urine Creatinine Urine Total Protein Heparin-induced Plt Ab Hep Bs Antibody, Quant Crossmatch 12/20/16 12/20/16 12/21/16 22:37 23:00 00:48 WBC RBC Hgb Hct MCV MCHC RDW Plt Count Lymph % (Auto) [place]nn % (Auto) [place]nn # Baso # Seg Neutrophils % Seg Neuts % (Manual) Lymphocytes % (Manual) Monocytes % (Manual) Nucleated RBC % Seg Neutrophils # Seg Neutrophils # Man Lymphocytes # (Manual) Monocytes # (Manual) Percent Retic Haptoglobin PT INR Fibrinogen D-Dimer POC ABG pH POC ABG pCO2 POC ABG pO2 Sodium 128 L D Potassium Chloride 83.2 L Carbon Dioxide 11 L BUN 32 H Creatinine 3.5 H Glucose 822 H* POC Glucose > 500 H > 500 H Lactic Acid Calcium 8.2 L Phosphorus Magnesium Iron TIBC Transferrin Total Bilirubin Direct Bilirubin AST ALT Alkaline Phosphatase Lactate Dehydrogenase CK-MB (CK-2) Troponin T C-Reactive Protein Total Protein Albumin Triglycerides Cholesterol HDL Cholesterol Vitamin B12 Urine Creatinine Urine Total Protein Heparin-induced Plt Ab Hep Bs Antibody, Quant Crossmatch 12/21/16 12/21/16 12/21/16 03:17 05:00 05:00 WBC 15.7 H RBC 2.32 L Hgb 6.8 L Hct 20.6 L MCV MCHC RDW 16.3 H Plt Count Lymph % (Auto) 11.5 L [place]nn % (Auto) 7.4 H Glynn # 1.2 H Baso # Seg Neutrophils % 78.7 H Seg Neuts % (Manual) Lymphocytes % (Manual) Monocytes % (Manual) Nucleated RBC % Seg Neutrophils # 12.4 H Seg Neutrophils # Man Lymphocytes # (Manual) Monocytes # (Manual) Percent Retic Haptoglobin PT INR Fibrinogen D-Dimer POC ABG pH POC ABG pCO2 POC ABG pO2 Sodium Potassium Chloride 95.3 L Carbon Dioxide 20 L D BUN 32 H Creatinine 3.7 H Glucose 243 H POC Glucose 428 H Lactic Acid Calcium 8.1 L Phosphorus Magnesium Iron TIBC 193.20 L Transferrin 138 L Total Bilirubin Direct Bilirubin AST ALT Alkaline Phosphatase Lactate Dehydrogenase CK-MB (CK-2) Troponin T C-Reactive Protein Total Protein Albumin Triglycerides Cholesterol HDL Cholesterol Vitamin B12 Urine Creatinine Urine Total Protein Heparin-induced Plt Ab Hep Bs Antibody, Quant Crossmatch 12/21/16 12/21/16 12/21/16 05:40 06:49 08:20 WBC RBC Hgb Hct MCV MCHC RDW Plt Count Lymph % (Auto) [place]nn % (Auto) [place]nn # Baso # Seg Neutrophils % Seg Neuts % (Manual) Lymphocytes % (Manual) Monocytes % (Manual) Nucleated RBC % Seg Neutrophils # Seg Neutrophils # Man Lymphocytes # (Manual) Monocytes # (Manual) Percent Retic Haptoglobin PT INR Fibrinogen D-Dimer POC ABG pH POC ABG pCO2 POC ABG pO2 Sodium Potassium Chloride Carbon Dioxide BUN Creatinine Glucose POC Glucose 271 H 236 H 222 H Lactic Acid Calcium Phosphorus Magnesium Iron TIBC Transferrin Total Bilirubin Direct Bilirubin AST ALT Alkaline Phosphatase Lactate Dehydrogenase CK-MB (CK-2) Troponin T C-Reactive Protein Total Protein Albumin Triglycerides Cholesterol HDL Cholesterol Vitamin B12 Urine Creatinine Urine Total Protein Heparin-induced Plt Ab Hep Bs Antibody, Quant Crossmatch 12/21/16 12/21/16 12/21/16 16:28 18:26 21:10 WBC RBC Hgb Hct MCV MCHC RDW Plt Count Lymph % (Auto) [place]nn % (Auto) [place]nn # Baso # Seg Neutrophils % Seg Neuts % (Manual) Lymphocytes % (Manual) Monocytes % (Manual) Nucleated RBC % Seg Neutrophils # Seg Neutrophils # Man Lymphocytes # (Manual) Monocytes # (Manual) Percent Retic Haptoglobin PT INR Fibrinogen D-Dimer POC ABG pH POC ABG pCO2 POC ABG pO2 Sodium Potassium Chloride Carbon Dioxide BUN Creatinine Glucose POC Glucose < 40 L 62 L 255 H Lactic Acid Calcium Phosphorus Magnesium Iron TIBC Transferrin Total Bilirubin Direct Bilirubin AST ALT Alkaline Phosphatase Lactate Dehydrogenase CK-MB (CK-2) Troponin T C-Reactive Protein Total Protein Albumin Triglycerides Cholesterol HDL Cholesterol Vitamin B12 Urine Creatinine Urine Total Protein Heparin-induced Plt Ab Hep Bs Antibody, Quant Crossmatch 12/22/16 12/22/16 12/22/16 03:38 06:45 06:45 WBC 17.4 H RBC 2.26 L Hgb 6.6 L Hct 20.5 L MCV MCHC RDW 15.7 H Plt Count Lymph % (Auto) 8.1 L [place]nn % (Auto) Glynn # 0.9 H Baso # 0.2 H Seg Neutrophils % 84.3 H Seg Neuts % (Manual) Lymphocytes % (Manual) Monocytes % (Manual) Nucleated RBC % Seg Neutrophils # 14.6 H Seg Neutrophils # Man Lymphocytes # (Manual) Monocytes # (Manual) Percent Retic Haptoglobin PT INR Fibrinogen D-Dimer POC ABG pH POC ABG pCO2 POC ABG pO2 Sodium Potassium 3.3 L Chloride 95.5 L Carbon Dioxide 20 L BUN Creatinine 2.5 H Glucose 308 H POC Glucose 430 H Lactic Acid Calcium 8.2 L Phosphorus Magnesium Iron TIBC Transferrin Total Bilirubin Direct Bilirubin AST ALT Alkaline Phosphatase Lactate Dehydrogenase CK-MB (CK-2) Troponin T C-Reactive Protein Total Protein Albumin Triglycerides Cholesterol HDL Cholesterol Vitamin B12 Urine Creatinine Urine Total Protein Heparin-induced Plt Ab Hep Bs Antibody, Quant Crossmatch 12/22/16 12/22/16 12/22/16 08:31 12:50 15:46 WBC RBC Hgb Hct MCV MCHC RDW Plt Count Lymph % (Auto) [place]nn % (Auto) [place]nn # Baso # Seg Neutrophils % Seg Neuts % (Manual) Lymphocytes % (Manual) Monocytes % (Manual) Nucleated RBC % Seg Neutrophils # Seg Neutrophils # Man Lymphocytes # (Manual) Monocytes # (Manual) Percent Retic Haptoglobin PT INR Fibrinogen D-Dimer POC ABG pH POC ABG pCO2 POC ABG pO2 Sodium Potassium Chloride Carbon Dioxide BUN Creatinine Glucose POC Glucose 306 H 391 H Lactic Acid Calcium Phosphorus Magnesium Iron TIBC Transferrin Total Bilirubin Direct Bilirubin AST ALT Alkaline Phosphatase Lactate Dehydrogenase CK-MB (CK-2) Troponin T C-Reactive Protein Total Protein Albumin Triglycerides Cholesterol HDL Cholesterol Vitamin B12 Urine Creatinine Urine Total Protein Heparin-induced Plt Ab Hep Bs Antibody, Quant Crossmatch See Detail 12/22/16 12/22/16 12/23/16 17:13 21:45 06:42 WBC 17.9 H RBC 2.75 L Hgb 8.1 L Hct 24.8 L MCV MCHC RDW 17.1 H Plt Count Lymph % (Auto) [place]nn % (Auto) [place]nn # Baso # Seg Neutrophils % Seg Neuts % (Manual) Lymphocytes % (Manual) Monocytes % (Manual) Nucleated RBC % Seg Neutrophils # Seg Neutrophils # Man Lymphocytes # (Manual) Monocytes # (Manual) Percent Retic Haptoglobin PT INR Fibrinogen D-Dimer POC ABG pH POC ABG pCO2 POC ABG pO2 Sodium Potassium Chloride Carbon Dioxide BUN Creatinine Glucose POC Glucose > 500 H 449 H Lactic Acid Calcium Phosphorus Magnesium Iron TIBC Transferrin Total Bilirubin Direct Bilirubin AST ALT Alkaline Phosphatase Lactate Dehydrogenase CK-MB (CK-2) Troponin T C-Reactive Protein Total Protein Albumin Triglycerides Cholesterol HDL Cholesterol Vitamin B12 Urine Creatinine Urine Total Protein Heparin-induced Plt Ab Hep Bs Antibody, Quant Crossmatch 12/23/16 12/23/16 12/23/16 06:42 07:46 11:33 WBC RBC Hgb Hct MCV MCHC RDW Plt Count Lymph % (Auto) [place]nn % (Auto) [place]nn # Baso # Seg Neutrophils % Seg Neuts % (Manual) Lymphocytes % (Manual) Monocytes % (Manual) Nucleated RBC % Seg Neutrophils # Seg Neutrophils # Man Lymphocytes # (Manual) Monocytes # (Manual) Percent Retic Haptoglobin PT INR Fibrinogen D-Dimer POC ABG pH POC ABG pCO2 POC ABG pO2 Sodium Potassium 3.5 L Chloride 94.7 L Carbon Dioxide 19 L BUN 22 H Creatinine 2.9 H Glucose 401 H POC Glucose 449 H 298 H Lactic Acid Calcium 8.3 L Phosphorus Magnesium Iron TIBC Transferrin Total Bilirubin Direct Bilirubin AST ALT Alkaline Phosphatase Lactate Dehydrogenase CK-MB (CK-2) Troponin T C-Reactive Protein Total Protein Albumin Triglycerides Cholesterol HDL Cholesterol Vitamin B12 Urine Creatinine Urine Total Protein Heparin-induced Plt Ab Hep Bs Antibody, Quant Crossmatch 12/23/16 12/23/16 12/24/16 18:24 21:30 00:00 WBC RBC Hgb Hct MCV MCHC RDW Plt Count Lymph % (Auto) [place]nn % (Auto) [place]nn # Baso # Seg Neutrophils % Seg Neuts % (Manual) Lymphocytes % (Manual) Monocytes % (Manual) Nucleated RBC % Seg Neutrophils # Seg Neutrophils # Man Lymphocytes # (Manual) Monocytes # (Manual) Percent Retic Haptoglobin PT INR Fibrinogen D-Dimer POC ABG pH POC ABG pCO2 POC ABG pO2 Sodium Potassium Chloride Carbon Dioxide BUN Creatinine Glucose POC Glucose 177 H 455 H Lactic Acid Calcium Phosphorus Magnesium Iron TIBC Transferrin Total Bilirubin Direct Bilirubin AST ALT Alkaline Phosphatase Lactate Dehydrogenase CK-MB (CK-2) Troponin T C-Reactive Protein Total Protein Albumin Triglycerides Cholesterol HDL Cholesterol Vitamin B12 Urine Creatinine 239.9 H Urine Total Protein Heparin-induced Plt Ab Hep Bs Antibody, Quant Crossmatch 12/24/16 12/24/16 12/24/16 05:00 16:11 18:55 WBC RBC Hgb Hct MCV MCHC RDW Plt Count Lymph % (Auto) [place]nn % (Auto) [place]nn # Baso # Seg Neutrophils % Seg Neuts % (Manual) Lymphocytes % (Manual) Monocytes % (Manual) Nucleated RBC % Seg Neutrophils # Seg Neutrophils # Man Lymphocytes # (Manual) Monocytes # (Manual) Percent Retic Haptoglobin PT INR Fibrinogen D-Dimer POC ABG pH POC ABG pCO2 POC ABG pO2 Sodium Potassium 3.1 L Chloride 95.8 L Carbon Dioxide BUN Creatinine 1.8 H Glucose 106 H POC Glucose 175 H 148 H Lactic Acid Calcium Phosphorus Magnesium Iron TIBC Transferrin Total Bilirubin Direct Bilirubin AST ALT Alkaline Phosphatase Lactate Dehydrogenase CK-MB (CK-2) Troponin T C-Reactive Protein Total Protein Albumin Triglycerides Cholesterol HDL Cholesterol Vitamin B12 Urine Creatinine Urine Total Protein Heparin-induced Plt Ab Hep Bs Antibody, Quant Crossmatch 12/24/16 12/24/16 12/25/16 20:41 22:21 05:03 WBC RBC Hgb Hct MCV MCHC RDW Plt Count Lymph % (Auto) [place]nn % (Auto) [place] # Baso # Seg Neutrophils % Seg Neuts % (Manual) Lymphocytes % (Manual) Monocytes % (Manual) Nucleated RBC % Seg Neutrophils # Seg Neutrophils # Man Lymphocytes # (Manual) Monocytes # (Manual) Percent Retic Haptoglobin PT INR Fibrinogen D-Dimer POC ABG pH POC ABG pCO2 POC ABG pO2 Sodium Potassium 2.9 L* Chloride Carbon Dioxide BUN Creatinine 2.3 H Glucose 142 H POC Glucose 44 L 111 H Lactic Acid Calcium 8.0 L Phosphorus Magnesium Iron TIBC Transferrin Total Bilirubin Direct Bilirubin AST ALT Alkaline Phosphatase Lactate Dehydrogenase CK-MB (CK-2) Troponin T C-Reactive Protein Total Protein Albumin Triglycerides Cholesterol HDL Cholesterol Vitamin B12 Urine Creatinine Urine Total Protein Heparin-induced Plt Ab Hep Bs Antibody, Quant Crossmatch 12/25/16 12/25/16 12/25/16 07:30 12:08 16:43 WBC RBC Hgb Hct MCV MCHC RDW Plt Count Lymph % (Auto) [place]nn % (Auto) [place]nn # Baso # Seg Neutrophils % Seg Neuts % (Manual) Lymphocytes % (Manual) Monocytes % (Manual) Nucleated RBC % Seg Neutrophils # Seg Neutrophils # Man Lymphocytes # (Manual) Monocytes # (Manual) Percent Retic Haptoglobin PT INR Fibrinogen D-Dimer POC ABG pH POC ABG pCO2 POC ABG pO2 Sodium Potassium Chloride Carbon Dioxide BUN Creatinine Glucose POC Glucose 127 H 154 H 235 H Lactic Acid Calcium Phosphorus Magnesium Iron TIBC Transferrin Total Bilirubin Direct Bilirubin AST ALT Alkaline Phosphatase Lactate Dehydrogenase CK-MB (CK-2) Troponin T C-Reactive Protein Total Protein Albumin Triglycerides Cholesterol HDL Cholesterol Vitamin B12 Urine Creatinine Urine Total Protein Heparin-induced Plt Ab Hep Bs Antibody, Quant Crossmatch 12/25/16 12/26/16 12/26/16 23:30 07:49 10:21 WBC RBC Hgb Hct MCV MCHC RDW Plt Count Lymph % (Auto) [place]nn % (Auto) [place]nn # Baso # Seg Neutrophils % Seg Neuts % (Manual) Lymphocytes % (Manual) Monocytes % (Manual) Nucleated RBC % Seg Neutrophils # Seg Neutrophils # Man Lymphocytes # (Manual) Monocytes # (Manual) Percent Retic Haptoglobin PT INR Fibrinogen D-Dimer POC ABG pH POC ABG pCO2 POC ABG pO2 Sodium Potassium Chloride Carbon Dioxide BUN Creatinine Glucose POC Glucose 54 L 53 L 154 H Lactic Acid Calcium Phosphorus Magnesium Iron TIBC Transferrin Total Bilirubin Direct Bilirubin AST ALT Alkaline Phosphatase Lactate Dehydrogenase CK-MB (CK-2) Troponin T C-Reactive Protein Total Protein Albumin Triglycerides Cholesterol HDL Cholesterol Vitamin B12 Urine Creatinine Urine Total Protein Heparin-induced Plt Ab Hep Bs Antibody, Quant Crossmatch 12/26/16 12/26/16 12/26/16 12:19 16:14 Unknown WBC RBC Hgb Hct MCV MCHC RDW Plt Count Lymph % (Auto) [place] % (Auto) [place]nn # Baso # Seg Neutrophils % Seg Neuts % (Manual) Lymphocytes % (Manual) Monocytes % (Manual) Nucleated RBC % Seg Neutrophils # Seg Neutrophils # Man Lymphocytes # (Manual) Monocytes # (Manual) Percent Retic Haptoglobin PT INR Fibrinogen D-Dimer POC ABG pH POC ABG pCO2 POC ABG pO2 Sodium Potassium Chloride Carbon Dioxide BUN Creatinine 2.3 H Glucose POC Glucose 310 H Lactic Acid Calcium 8.3 L Phosphorus Magnesium 1.50 L Iron TIBC Transferrin Total Bilirubin Direct Bilirubin AST ALT Alkaline Phosphatase Lactate Dehydrogenase CK-MB (CK-2) Troponin T C-Reactive Protein Total Protein Albumin Triglycerides Cholesterol HDL Cholesterol Vitamin B12 Urine Creatinine Urine Total Protein Heparin-induced Plt Ab Hep Bs Antibody, Quant Crossmatch 12/26/16 12/26/16 12/27/16 Unknown Unknown 04:47 WBC RBC 2.95 L Hgb 9.0 L Hct 26.5 L MCV MCHC RDW 16.6 H Plt Count Lymph % (Auto) [place] % (Auto) [place] # Baso # Seg Neutrophils % Seg Neuts % (Manual) Lymphocytes % (Manual) Monocytes % (Manual) Nucleated RBC % Seg Neutrophils # Seg Neutrophils # Man Lymphocytes # (Manual) Monocytes # (Manual) Percent Retic Haptoglobin PT INR Fibrinogen D-Dimer POC ABG pH POC ABG pCO2 POC ABG pO2 Sodium Potassium Chloride Carbon Dioxide BUN Creatinine 2.3 H Glucose 157 H POC Glucose 406 H Lactic Acid Calcium 7.7 L Phosphorus Magnesium Iron TIBC Transferrin Total Bilirubin Direct Bilirubin AST ALT Alkaline Phosphatase Lactate Dehydrogenase CK-MB (CK-2) Troponin T C-Reactive Protein Total Protein Albumin Triglycerides Cholesterol HDL Cholesterol Vitamin B12 Urine Creatinine Urine Total Protein Heparin-induced Plt Ab Hep Bs Antibody, Quant Crossmatch 12/27/16 11:09 WBC RBC Hgb Hct MCV MCHC RDW Plt Count Lymph % (Auto) [place] % (Auto) [place] # Baso # Seg Neutrophils % Seg Neuts % (Manual) Lymphocytes % (Manual) Monocytes % (Manual) Nucleated RBC % Seg Neutrophils # Seg Neutrophils # Man Lymphocytes # (Manual) Monocytes # (Manual) Percent Retic Haptoglobin PT INR Fibrinogen D-Dimer POC ABG pH POC ABG pCO2 POC ABG pO2 Sodium Potassium Chloride Carbon Dioxide BUN Creatinine Glucose POC Glucose 301 H Lactic Acid Calcium Phosphorus Magnesium Iron TIBC Transferrin Total Bilirubin Direct Bilirubin AST ALT Alkaline Phosphatase Lactate Dehydrogenase CK-MB (CK-2) Troponin T C-Reactive Protein Total Protein Albumin Triglycerides Cholesterol HDL Cholesterol Vitamin B12 Urine Creatinine Urine Total Protein Heparin-induced Plt Ab Hep Bs Antibody, Quant Crossmatch
[2016-12-28] MEDS: PERCOCET 5/325 PO PRN ×3 (00:19→23:54)
[2016-12-28] MEDS: BENADRYL PO PRN ×3 (00:20→23:54)
[2016-12-28 07:45] LABS: Calcium 7.7 mg/dL (8.4-10.2); Chloride 100.6 mmol/L (98-107); Potassium 5.1 mmol/L (3.6-5.0)
[2016-12-28] MEDS: NOVOLOG SUB-Q SCH ×4 (08:29→21:32)
--- NOTE | 2016-12-28 08:56 | Event Note ---
Date: 12/28/16 Patient remains afebrile. WBC has normalized. No new ID concerns. I will sign off. Please call again if there are additional questions or concerns.
[2016-12-28] MEDS: LOPRESSOR PO SCH ×2 (09:28→21:21)
[2016-12-28] MEDS: PEPCID PO SCH (09:28)
[2016-12-28] MEDS: LOVENOX SUB-Q SCH (09:31)
--- NOTE | 2016-12-28 10:38 | Progress Note ---
Assessment and Plan Assessment and plan: The patient is a 46-year-old woman with history of insulin-dependent diabetes mellitus, hypertension, recent SAH and dyslipidemia who presented with DKA, AMS and STEMI with V. fib arrest requiring IV amiodarone suppression. she was intubated and subsequently extubated. she was treated with IV insulin drip for documented DKA without ketones documentation but she was acidotic on admission and pressors but subsequently weaned off and transferred to the medical floor. Uncontrolled DM -Labile -Adjust insulin to 15 units BID. Monitor FOR Hypoglycemia, CHANGE DIET TO INCLUDE CARB CONSISTENT Severe Metabolic acidosis For dialysis today, Neprhology following Cardiac arrest with PEA arrest-->V. fib/?torsades was shocked twice - Likely from hyperkalemia, currently patient is stable. Was treated with amiodarone -Echo EF 40-45% - No recurrence Acute kidney injury secondary to ATN - Nephrology is following. HD Held and being reassessed daily. ASHELY improving. Cr 2.3 for past 3 days NOW 2.0. May need outpatient hemodialysis arranged. Hyperkalemia- monitor, if no resolution, give kayxalate. Metabolic Acidosis, Reoccured, started on Bicitra Acute hypoxic respiratory failure. Resolved. Now extubated Malnutrition- Moderate: Nutrition consult Spesis secondary to Possible aspiration penumonitis. Inital BCX with coagulase negative staff, 1/2 bottles ?contaminate Repeat cultures, no growth. DKA: - resolved - On sliding insulin Acute metabolic encephalopathy, resolved Nstemi Type 2- Likely from Shock. Moderate protein calorie malnutrition Thrombocytopenia - Resolved Acute on chronic anemia of chronic disease, s/p total 3 units PRBC this admission - Hemoglobin is stable. will check intermittently Depression - Psych consulted and recommend outpatient mental health follow up. Disposition - Patient stable for discharge. Awaiting outpatient dialysis to be arranged.OR if no further dialysis need, can be discharged to SNF if ok with [employer]. -DVT prophylaxis: SCDs only due to recent SAH History Interval history: Patient seen and examined, denies any new complaints, Nursing staff reports liable Blood glucose. still with nausea and poor appetite Hospitalist Physical - Physical exam Narrative exam: VITAL SIGNS: Reviewed. GENERAL: The patient appeared normally developed, cachetic. Vital signs as documented. HEAD: No signs of head trauma. temporal wasting noted EYES: Pupils are equal. Extraocular motions intact. EARS: Hearing grossly intact. MOUTH: Oropharynx is normal. NECK: No adenopathy, no JVD. CHEST: Chest with diminshed breath sounds bilaterally. No wheezes, rales, or rhonchi. (access Right Perm Catheter intact) CARDIAC: Regular rate and rhythm. S1 and S2, without murmurs, gallops, or rubs. VASCULAR: Trace Edema. Peripheral pulses normal and equal in all extremities. ABDOMEN: Soft, without detectable tenderness. No sign of distention. No rebound or guarding, and no masses palpated. Bowel Sounds normal. MUSCULOSKELETAL: Good range of motion of all major joints. Extremities without clubbing, cyanosis. Trace edema. NEUROLOGIC EXAM: Alert and oriented x 3. No focal sensory or strength deficits. Speech normal. Follows commands. PSYCHIATRIC: Mood normal. SKIN: No rash or lesions. Lines: right chest port, left Upper ext Picc - Constitutional Vitals: Temp Pulse Resp BP Pulse Ox 98.4 F 89 18 125/76 100 12/28/16 07:33 12/28/16 07:33 12/28/16 07:33 12/28/16 07:33 12/28/16 07:33 General appearance: Present: no acute distress (resting comfortably) Results - Labs CBC & Chem 7: 12/26/16 Unknown 12/28/16 06:17 Labs: Laboratory Last Values WBC 7.9 K/mm3 (4.5-11.0) 12/26/16 Unknown RBC 2.95 M/mm3 (3.65-5.03) L 12/26/16 Unknown Hgb 9.0 gm/dl (10.1-14.3) L 12/26/16 Unknown Hct 26.5 % (30.3-42.9) L 12/26/16 Unknown MCV 90 fl (79-97) 12/26/16 Unknown MCH 30 pg (28-32) 12/26/16 Unknown MCHC 34 % (30-34) 12/26/16 Unknown RDW 16.6 % (13.2-15.2) H 12/26/16 Unknown Plt Count 230 K/mm3 (140-440) 12/26/16 Unknown Lymph % (Auto) 8.1 % (13.4-35.0) L 12/22/16 06:45 [place] % (Auto) 5.3 % (0.0-7.3) 12/22/16 06:45 Eos % (Auto) 1.4 % (0.0-4.3) 12/22/16 06:45 Baso % (Auto) 0.9 % (0.0-1.8) 12/22/16 06:45 Lymph # 1.4 K/mm3 (1.2-5.4) 12/22/16 06:45 [place] # 0.9 K/mm3 (0.0-0.8) H 12/22/16 06:45 Eos # 0.2 K/mm3 (0.0-0.4) 12/22/16 06:45 Baso # 0.2 K/mm3 (0.0-0.1) H 12/22/16 06:45 Add Manual Diff Complete 12/13/16 07:49 Total Counted 100 12/13/16 07:49 Seg Neutrophils % 84.3 % (40.0-70.0) H 12/22/16 06:45 Seg Neuts % (Manual) 89.0 % (40.0-70.0) H 12/13/16 07:49 Band Neutrophils % 1.0 % 12/13/16 07:49 Lymphocytes % (Manual) 7.0 % (13.4-35.0) L 12/13/16 07:49 Reactive Lymphs % (Man) 0 % 12/13/16 07:49 Monocytes % (Manual) 3.0 % (0.0-7.3) 12/13/16 07:49 Eosinophils % (Manual) 0 % (0.0-4.3) 12/13/16 07:49 Basophils % (Manual) 0 % (0.0-1.8) 12/13/16 07:49 Metamyelocytes % 0 % 12/13/16 07:49 Myelocytes % 0 % 12/13/16 07:49 Promyelocytes % 0 % 12/13/16 07:49 Blast Cells % 0 % 12/13/16 07:49 Nucleated RBC % Not Reportable 12/13/16 07:49 Seg Neutrophils # 14.6 K/mm3 (1.8-7.7) H 12/22/16 06:45 Seg Neutrophils # Man 21.4 K/mm3 (1.8-7.7) H 12/13/16 07:49 Band Neutrophils # 0.2 K/mm3 12/13/16 07:49 Lymphocytes # (Manual) 1.7 K/mm3 (1.2-5.4) 12/13/16 07:49 Abs React Lymphs (Man) 0.0 K/mm3 12/13/16 07:49 Monocytes # (Manual) 0.7 K/mm3 (0.0-0.8) 12/13/16 07:49 Eosinophils # (Manual) 0.0 K/mm3 (0.0-0.4) 12/13/16 07:49 Basophils # (Manual) 0.0 K/mm3 (0.0-0.1) 12/13/16 07:49 Metamyelocytes # 0.0 K/mm3 12/13/16 07:49 Myelocytes # 0.0 K/mm3 12/13/16 07:49 Promyelocytes # 0.0 K/mm3 12/13/16 07:49 Blast Cells # 0.0 K/mm3 12/13/16 07:49 WBC Morphology Not Reportable 12/13/16 07:49 Hypersegmented Neuts Not Reportable 12/13/16 07:49 Hyposegmented Neuts Not Reportable 12/13/16 07:49 Hypogranular Neuts Not Reportable 12/13/16 07:49 Smudge Cells Not Reportable 12/13/16 07:49 Toxic Granulation Not Reportable 12/13/16 07:49 Toxic Vacuolation Not Reportable 12/13/16 07:49 Dohle Bodies Not Reportable 12/13/16 07:49 Pelger-Huet Anomaly Not Reportable 12/13/16 07:49 Mary Rods Not Reportable 12/13/16 07:49 Platelet Estimate Cons 12/13/16 07:49 Clumped Platelets Not Reportable 12/13/16 07:49 Plt Clumps, EDTA Not Reportable 12/13/16 07:49 Large Platelets Rare 12/13/16 07:49 Giant Platelets Not Reportable 12/13/16 07:49 Platelet Satelliting Not Reportable 12/13/16 07:49 Plt Morphology Comment Not Reportable 12/13/16 07:49 RBC Morphology Not Reportable 12/13/16 07:49 Dimorphic RBCs Not Reportable 12/13/16 07:49 Polychromasia Not Reportable 12/13/16 07:49 Hypochromasia 1+ 12/13/16 07:49 Poikilocytosis Not Reportable 12/13/16 07:49 Anisocytosis 1+ 12/13/16 07:49 Microcytosis Not Reportable 12/13/16 07:49 Macrocytosis Not Reportable 12/13/16 07:49 Spherocytes Not Reportable 12/13/16 07:49 Pappenheimer Bodies Not Reportable 12/13/16 07:49 Sickle Cells Not Reportable 12/13/16 07:49 Target Cells Few 12/13/16 07:49 Tear Drop Cells Not Reportable 12/13/16 07:49 Ovalocytes Not Reportable 12/13/16 07:49 Helmet Cells Not Reportable 12/13/16 07:49 [place]arch[place] Bodies Not Reportable 12/13/16 07:49 [place] Rings Not Reportable 12/13/16 07:49 Parker Cells Not Reportable 12/13/16 07:49 Bite Cells Not Reportable 12/13/16 07:49 Crenated Cell Not Reportable 12/13/16 07:49 Elliptocytes Not Reportable 12/13/16 07:49 Acanthocytes (Spur) Not Reportable 12/13/16 07:49 Rouleaux Not Reportable 12/13/16 07:49 Hemoglobin C Crystals Not Reportable 12/13/16 07:49 Schistocytes Not Reportable 12/13/16 07:49 Malaria parasites Not Reportable 12/13/16 07:49 Percent Retic 0.23 % (0.78-2.58) L 12/09/16 11:29 Michael Bodies Not Reportable 12/13/16 07:49 Haptoglobin 271 mg/dL (43-212) H 12/08/16 21:30 Hem Pathologist Commnt No 12/13/16 07:49 PT 15.3 Sec. (12.2-14.9) H 12/08/16 19:00 INR 1.22 (0.87-1.13) H 12/08/16 19:00 APTT 36.2 Sec. (24.2-36.6) 12/08/16 19:00 Fibrinogen 563 mg/dl (211-480) H 12/08/16 19:00 D-Dimer 5507.36 ng/mlDDU (0-234) H 12/08/16 19:00 Heparin Anti-Xa, Unfract Negative (Negative) 12/09/16 13:27 POC ABG pH 7.326 (7.35-7.45) L 12/09/16 12:02 POC ABG pCO2 37.7 (35-45) 12/09/16 12:02 POC ABG pO2 115 (80-105) H 12/09/16 12:02 POC ABG HCO3 19.7 12/09/16 12:02 POC ABG Total CO2 21 12/09/16 12:02 POC ABG O2 Sat 98 12/09/16 12:02 POC ABG Base Excess -6 12/09/16 12:02 FiO2 30 % 12/09/16 12:02 Sodium 139 mmol/L (137-145) 12/28/16 06:17 Potassium 5.1 mmol/L (3.6-5.0) H D 12/28/16 06:17 Chloride 100.6 mmol/L (98-107) 12/28/16 06:17 Carbon Dioxide 19 mmol/L (22-30) L 12/28/16 06:17 Anion Gap 25 mmol/L 12/28/16 06:17 BUN 24 mg/dL (7-17) H 12/28/16 06:17 Creatinine 2.0 mg/dL (0.7-1.2) H 12/28/16 06:17 Estimated GFR 32 ml/min 12/28/16 06:17 BUN/Creatinine Ratio 12.00 % 12/28/16 06:17 Glucose 394 mg/dL (65-100) H 12/28/16 06:17 POC Glucose 347 (70-105) H 12/27/16 21:00 Lactic Acid 6.90 mmol/L (0.7-2.0) H* 12/07/16 07:30 Calcium 7.7 mg/dL (8.4-10.2) L 12/28/16 06:17 Phosphorus 2.60 mg/dL (2.5-4.5) 12/26/16 Unknown Magnesium 1.50 mg/dL (1.7-2.3) L 12/26/16 12:19 Iron 66 ug/dL (37-170) 12/21/16 05:00 TIBC 193.20 mcg/dL (250-450) L 12/21/16 05:00 Transferrin 138 mg/dl (192-382) L 12/21/16 05:00 Ferritin 321.4 ng/mL (13.0-400.0) 12/21/16 05:00 Total Bilirubin 1.40 mg/dL (0.1-1.2) H 12/07/16 21:35 Direct Bilirubin 0.9 mg/dL (0-0.2) H 12/07/16 21:35 Indirect Bilirubin 0.5 mg/dL 12/07/16 21:35 AST 94 units/L (5-40) H 12/07/16 21:35 ALT 142 units/L (7-56) H 12/07/16 21:35 Alkaline Phosphatase 249 units/L (35-129) H 12/07/16 21:35 Lactate Dehydrogenase 382 units/L (91-180) H 12/08/16 19:00 Total Creatine Kinase 123 units/L (30-135) 12/04/16 09:55 CK-MB (CK-2) 4.6 ng/mL (0.0-4.0) H 12/04/16 09:55 CK-MB (CK-2) Rel Index 3.7 (0-4) 12/04/16 09:55 Troponin T 0.140 ng/mL (0.00-0.029) H* D 12/04/16 09:55 C-Reactive Protein 39.40 mg/dL (0.00-1.30) H 12/07/16 06:00 Total Protein 4.6 g/dL (6.3-8.2) L D 12/07/16 21:35 Albumin 2.1 g/dL (3.9-5) L 12/07/16 21:35 Albumin/Globulin Ratio 0.8 % 12/07/16 21:35 Triglycerides 570 mg/dL (2-149) H 12/04/16 07:55 Cholesterol 221 mg/dL (50-199) H 12/04/16 07:55 LDL Cholesterol Direct TNR 12/04/16 07:55 HDL Cholesterol 37 mg/dL (40-59) L 12/04/16 07:55 Cholesterol/HDL Ratio 5.97 % 12/04/16 07:55 Serotonin Release Assay See scanned report 12/09/16 13:27 Vitamin B12 > 2000 pg/mL (211-911) H 12/09/16 13:27 Folate 8.10 ng/mL (7.3-26.0) 12/09/16 13:27 TSH 1.600 mlU/mL (0.270-4.200) 12/03/16 23:20 Urine Color Yellow (Yellow) 12/04/16 11:25 Urine Turbidity Slightly-cloudy (Clear) 12/04/16 11:25 Urine pH 5.0 (5.0-7.0) 12/04/16 11:25 Ur Specific [place] 1.018 (1.003-1.030) 12/04/16 11:25 Urine Protein 30 mg/dl mg/dL (Negative) 12/04/16 11:25 Urine Glucose (UA) >=500 mg/dL (Negative) 12/04/16 11:25 Urine Ketones Tr mg/dL (Negative) 12/04/16 11:25 Urine Blood Sm (Negative) 12/04/16 11:25 Urine Nitrite Neg (Negative) 12/04/16 11:25 Urine Bilirubin Neg (Negative) 12/04/16 11:25 Urine Urobilinogen < 2.0 mg/dL (<2.0) 12/04/16 11:25 Ur Leukocyte Esterase Neg (Negative) 12/04/16 11:25 Urine WBC (Auto) 4.0 /HPF (0.0-6.0) 12/04/16 11:25 Urine RBC (Auto) 2.0 /HPF (0.0-6.0) 12/04/16 11:25 U Epithel Cells (Auto) < 1.0 /HPF (0-13.0) 12/04/16 11:25 Urine Mucus Few /HPF 12/04/16 11:25 Urine Osmolality 419 Mosm/kg 12/04/16 11:25 Urine Total Volume 200 12/24/16 00:00 Urine Creatinine 239.9 mg/dL (0.1-20.0) H 12/24/16 00:00 Height (in) 64.0 inches 12/24/16 00:00 Weight (lb) 114.0 lbs 12/24/16 00:00 Creatinine Clearance 12 12/24/16 00:00 Protein/Creatinin Ratio 1.12 12/04/16 11:25 Urine Sodium 26 mEq/L 12/04/16 11:25 Urine Total Protein 33 mg/dL (5-11.8) H 12/04/16 11:25 Urine Opiates Screen Presumptive negative 12/04/16 11:25 Urine Methadone Screen Presumptive negative 12/04/16 11:25 Ur Barbiturates Screen Presumptive negative 12/04/16 11:25 Ur Phencyclidine Scrn Presumptive negative 12/04/16 11:25 Ur Amphetamines Screen Presumptive negative 12/04/16 11:25 U Benzodiazepines Scrn Presumptive negative 12/04/16 11:25 Urine Cocaine Screen Presumptive negative 12/04/16 11:25 U Marijuana (THC) Screen Presumptive positive 12/04/16 11:25 Drugs of Abuse Note Disclamer 12/04/16 11:25 Heparin-induced Plt Ab Weak positive (Negative) H 12/09/16 13:27 UF Heparin High Dose 0 % Release 12/09/16 13:27 ADRIENNE UFH Low Dose 0.1 0 % Release 12/09/16 13:27 ADRIENNE UFH Low Dose 0.5 0 % Release 12/09/16 13:27 Hep Bs Antigen Non-reactive (Negative) 12/09/16 13:27 Hep Bs Antibody, Quant <5 mIU/mL (>=10) L 12/09/16 13:27 Hep B Core Total Ab Nonreactive (Nonreactive) 12/09/16 13:27 Hepatitis C Antibody Non-reactive (NonReactive) 12/09/16 13:27 HIV 1&2 Antibody Rapid Non react (Non React) 12/09/16 13:27 HIV P24 Antigen Non react (Non React) 12/09/16 13:27 Schistocytes Smear None seen 12/09/16 11:29 Blood Type O POSITIVE 12/22/16 15:46 Antibody Screen TNR 12/22/16 15:46 ISAIAH Antibody Screen Negative 12/22/16 15:46 Crossmatch See Detail 12/22/16 15:46
--- NOTE | 2016-12-28 10:48 | Progress Note ---
Assessment and Plan (1) DKA (diabetic ketoacidoses) Current Visit: Yes Status: Acute Qualifiers: Diabetes mellitus type: type 1 Diabetes mellitus complication detail: without coma Diabetes mellitus fci insulin use: D Qualified Code(s): E10.10 - Type 1 diabetes mellitus with ketoacidosis without coma Plan to address problem: S/P DKA on Insulin drip. Now on sliding scale insulin as per Primary team (2) severe renal failure Current Visit: No Status: Acute Plan to address problem: if kidney function stable by tomorrow will request permcath removal will start bicitra for worsening acidosis Monitor I/O's Renally dose medications Obtain daily weights Renal diet (3) Hypertensive chronic kidney disease Current Visit: Yes Status: Acute Plan to address problem: Continue on anti-hypertensive agent. On Metoprolol. (4) Anemia Current Visit: Yes Status: Acute Qualifiers: Anemia type: A Iron deficiency anemia type: I Vitamin B12 deficiency anemia type: V Folate deficiency anemia type: F Bone marrow failure anemia type: B Hemolytic anemia type: H Other causes of anemia: O Chronic kidney disease stage: C Plan to address problem: Epogen as needed Subjective Date of service: 12/28/16 Principal diagnosis: Sepsis; Pneumonia; ASHELY on dialysis; Diabetes Interval history: no overnight events Objective - Vital Signs Vital signs: Vital Signs - 12hr 12/28/16 12/28/16 12/28/16 00:00 04:00 07:33 Temperature 98.2 F 97.8 F 98.4 F Pulse Rate [ 97 H 95 H 89 Right Radial] Respiratory 18 18 18 Rate Blood Pressure 132/81 118/57 125/76 [Right Arm] O2 Sat by Pulse 100 97 100 Oximetry - General Appearance General appearance: well-developed, well-nourished EENT: ATNC Neck: no JVD, no carotid bruit Respiratory: Present: Clear to Ascultation Cardiology: regular, S1S2 Gastrointestinal: normoactive bowel sounds Integumentary: no rash, warm and dry Neurologic: no focal deficit, no asterixis, alert and oriented x3 Musculoskeletal: deferred Psychiatric: mood/affect appropriate - Lab 12/26/16 Unknown 12/28/16 06:17 Most recent lab results Calcium 7.7 mg/dL (8.4-10.2) L 12/28/16 06:17 Phosphorus 2.60 mg/dL (2.5-4.5) 12/26/16 Unknown Magnesium 1.50 mg/dL (1.7-2.3) L 12/26/16 12:19 Urine Creatinine 239.9 mg/dL (0.1-20.0) H 12/24/16 00:00 Urine Sodium 26 mEq/L 12/04/16 11:25 Urine Total Protein 33 mg/dL (5-11.8) H 12/04/16 11:25
[2016-12-28] MEDS ORDERED: BICITRA PO ONE (12:12)
--- NOTE | 2016-12-28 19:26 | Progress Note ---
Assessment and Plan Patient alert, awake. No acute respiratory distress.O2 saturation 100% . Patient afebrile. Repeating the chest xray tomorrow to assess the pulmonary infiltrates. 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 Patient alert, awake. Clinicaly appears improving. Management as per primary care. (2) Metabolic encephalopathy Current Visit: Yes Status: Acute Plan to address problem: Patient alert, awake, following commands. Appears encephalopathy improving. Management as per primary care. (3) Pulmonary infiltrate in right lung on chest x-ray Current Visit: Yes Status: Acute Plan to address problem: Patient off the Antibiotics. Patient afebrile. Still has leukocytosis. Repeating chest xray. Subjective Date of service: 12/28/16 Principal diagnosis: Sepsis; Pneumonia; ASHELY on dialysis; Diabetes Interval history: Patient alert, awake. No acute respiratory distress.O2 saturation 100% . Patient afebrile. Repeating the chest xray tomorrow to assess the pulmonary infiltrates. Objective Vital Signs - 12hr 12/28/16 12/28/16 12/28/16 07:33 09:00 10:00 Temperature 98.4 F Pulse Rate 89 Pulse Rate [ 89 89 Right Radial] Respiratory 18 20 Rate Blood Pressure 125/76 [Right Arm] O2 Sat by Pulse 100 100 Oximetry 12/28/16 11:30 Temperature 98.3 F Pulse Rate Pulse Rate [ 91 H Right Radial] Respiratory 18 Rate Blood Pressure 136/84 [Right Arm] O2 Sat by Pulse 100 Oximetry Constitutional: no acute distress, alert Eyes: non-icteric ENT: oropharynx moist Neck: supple, no lymphadenopathy Effort: normal Ascultation: Right: rhonchi, Bilateral: diminished breath sounds, rales (R>L lungs) Cardiovascular: regular rate and rhythm Gastrointestinal: normoactive bowel sounds, soft, non-tender, non-distended Integumentary: normal Extremities: no cyanosis, no edema, pulses normal, no ischemia or petechiae Neurologic: normal mental status, non-focal exam, pupils equal and round, motor strength normal and Psychiatric: mood appropriate, affect normal CBC and BMP: 12/26/16 Unknown 12/28/16 06:17 ABG, PT/INR, D-dimer: ABG POC ABG pH 7.326 (7.35-7.45) L 12/09/16 12:02 POC ABG pCO2 37.7 (35-45) 12/09/16 12:02 POC ABG pO2 115 (80-105) H 12/09/16 12:02 POC ABG HCO3 19.7 12/09/16 12:02 POC ABG Total CO2 21 12/09/16 12:02 POC ABG O2 Sat 98 12/09/16 12:02 PT/INR, D-dimer PT 15.3 Sec. (12.2-14.9) H 12/08/16 19:00 INR 1.22 (0.87-1.13) H 12/08/16 19:00 D-Dimer 5507.36 ng/mlDDU (0-234) H 12/08/16 19:00 Abnormal lab findings: Abnormal Labs 12/04/16 12/04/16 12/04/16 01:19 01:36 02:21 WBC RBC Hgb Hct MCV MCHC RDW Plt Count Lymph % (Auto) Norman % (Auto) Norman # Baso # Seg Neutrophils % Seg Neuts % (Manual) Lymphocytes % (Manual) Monocytes % (Manual) Nucleated RBC % Seg Neutrophils # Seg Neutrophils # Man Lymphocytes # (Manual) Monocytes # (Manual) Percent Retic Haptoglobin PT INR Fibrinogen D-Dimer POC ABG pH 6.759 L POC ABG pCO2 POC ABG pO2 437 H Sodium Potassium Chloride Carbon Dioxide BUN Creatinine Glucose POC Glucose > 500 H Lactic Acid Calcium Phosphorus 15.70 H Magnesium 4.30 H Iron TIBC Transferrin Total Bilirubin Direct Bilirubin AST ALT Alkaline Phosphatase Lactate Dehydrogenase CK-MB (CK-2) Troponin T C-Reactive Protein Total Protein Albumin Triglycerides Cholesterol HDL Cholesterol Vitamin B12 Urine Creatinine Urine Total Protein Heparin-induced Plt Ab Hep Bs Antibody, Quant Crossmatch 12/04/16 12/04/16 12/04/16 03:55 04:00 05:11 WBC RBC Hgb Hct MCV MCHC RDW Plt Count Lymph % (Auto) [place] % (Auto) Norman # Baso # Seg Neutrophils % Seg Neuts % (Manual) Lymphocytes % (Manual) Monocytes % (Manual) Nucleated RBC % Seg Neutrophils # Seg Neutrophils # Man Lymphocytes # (Manual) Monocytes # (Manual) Percent Retic Haptoglobin PT INR Fibrinogen D-Dimer POC ABG pH POC ABG pCO2 POC ABG pO2 Sodium Potassium Chloride 91.4 L Carbon Dioxide 8 L* BUN 55 H Creatinine 2.8 H Glucose 1610 H* POC Glucose > 500 H > 500 H Lactic Acid Calcium Phosphorus Magnesium Iron TIBC Transferrin Total Bilirubin Direct Bilirubin AST ALT Alkaline Phosphatase Lactate Dehydrogenase CK-MB (CK-2) Troponin T C-Reactive Protein Total Protein Albumin Triglycerides Cholesterol HDL Cholesterol Vitamin B12 Urine Creatinine Urine Total Protein Heparin-induced Plt Ab Hep Bs Antibody, Quant Crossmatch 12/04/16 12/04/16 12/04/16 05:40 05:54 06:58 WBC RBC Hgb Hct MCV MCHC RDW Plt Count Lymph % (Auto) [place] % (Auto) Norman # Baso # Seg Neutrophils % Seg Neuts % (Manual) Lymphocytes % (Manual) Monocytes % (Manual) Nucleated RBC % Seg Neutrophils # Seg Neutrophils # Man Lymphocytes # (Manual) Monocytes # (Manual) Percent Retic Haptoglobin PT INR Fibrinogen D-Dimer POC ABG pH 7.154 L POC ABG pCO2 27.5 L POC ABG pO2 111 H Sodium Potassium Chloride Carbon Dioxide BUN Creatinine Glucose POC Glucose > 500 H > 500 H Lactic Acid Calcium Phosphorus Magnesium Iron TIBC Transferrin Total Bilirubin Direct Bilirubin AST ALT Alkaline Phosphatase Lactate Dehydrogenase CK-MB (CK-2) Troponin T C-Reactive Protein Total Protein Albumin Triglycerides Cholesterol HDL Cholesterol Vitamin B12 Urine Creatinine Urine Total Protein Heparin-induced Plt Ab Hep Bs Antibody, Quant Crossmatch 12/04/16 12/04/16 12/04/16 07:49 07:55 07:55 WBC RBC Hgb Hct MCV MCHC RDW Plt Count Lymph % (Auto) [place] % (Auto) [place] # Baso # Seg Neutrophils % Seg Neuts % (Manual) Lymphocytes % (Manual) Monocytes % (Manual) Nucleated RBC % Seg Neutrophils # Seg Neutrophils # Man Lymphocytes # (Manual) Monocytes # (Manual) Percent Retic Haptoglobin PT INR Fibrinogen D-Dimer POC ABG pH POC ABG pCO2 POC ABG pO2 Sodium Potassium 3.3 L Chloride Carbon Dioxide 9 L* BUN 53 H Creatinine 2.9 H Glucose 1229 H* POC Glucose > 500 H Lactic Acid Calcium Phosphorus Magnesium Iron TIBC Transferrin Total Bilirubin Direct Bilirubin AST ALT Alkaline Phosphatase Lactate Dehydrogenase CK-MB (CK-2) Troponin T 0.111 H* D C-Reactive Protein Total Protein Albumin Triglycerides 570 H Cholesterol 221 H HDL Cholesterol 37 L Vitamin B12 Urine Creatinine Urine Total Protein Heparin-induced Plt Ab Hep Bs Antibody, Quant Crossmatch 12/04/16 12/04/16 12/04/16 07:55 09:55 09:55 WBC RBC 2.90 L Hgb 8.5 L Hct 30.2 L D MCV 105 H D MCHC 28 L RDW 19.2 H Plt Count Lymph % (Auto) Norman % (Auto) Norman # Baso # Seg Neutrophils % Seg Neuts % (Manual) Lymphocytes % (Manual) 11.0 L Monocytes % (Manual) Nucleated RBC % Seg Neutrophils # Seg Neutrophils # Man Lymphocytes # (Manual) 0.6 L Monocytes # (Manual) Percent Retic Haptoglobin PT INR Fibrinogen D-Dimer POC ABG pH POC ABG pCO2 POC ABG pO2 Sodium Potassium 3.1 L Chloride Carbon Dioxide 7 L* BUN 51 H Creatinine 3.2 H Glucose 969 H* POC Glucose Lactic Acid Calcium 10.4 H D Phosphorus Magnesium Iron TIBC Transferrin Total Bilirubin Direct Bilirubin AST ALT Alkaline Phosphatase Lactate Dehydrogenase CK-MB (CK-2) 4.6 H Troponin T 0.140 H* D C-Reactive Protein Total Protein Albumin Triglycerides Cholesterol HDL Cholesterol Vitamin B12 Urine Creatinine Urine Total Protein Heparin-induced Plt Ab Hep Bs Antibody, Quant Crossmatch 12/04/16 12/04/16 12/04/16 09:55 10:37 11:25 WBC RBC Hgb Hct MCV MCHC RDW Plt Count Lymph % (Auto) [place] % (Auto) [place] # Baso # Seg Neutrophils % Seg Neuts % (Manual) Lymphocytes % (Manual) Monocytes % (Manual) Nucleated RBC % Seg Neutrophils # Seg Neutrophils # Man Lymphocytes # (Manual) Monocytes # (Manual) Percent Retic Haptoglobin PT INR Fibrinogen D-Dimer POC ABG pH 7.215 L POC ABG pCO2 18.8 L POC ABG pO2 193 H Sodium Potassium Chloride Carbon Dioxide BUN Creatinine Glucose POC Glucose Lactic Acid Calcium Phosphorus Magnesium 3.70 H Iron TIBC Transferrin Total Bilirubin Direct Bilirubin AST ALT Alkaline Phosphatase Lactate Dehydrogenase CK-MB (CK-2) Troponin T C-Reactive Protein Total Protein Albumin Triglycerides Cholesterol HDL Cholesterol Vitamin B12 Urine Creatinine 29.5 H Urine Total Protein 33 H Heparin-induced Plt Ab Hep Bs Antibody, Quant Crossmatch 12/04/16 12/04/16 12/04/16 12:00 12:48 13:00 WBC RBC Hgb Hct MCV MCHC RDW Plt Count Lymph % (Auto) [place] % (Auto) [place] # Baso # Seg Neutrophils % Seg Neuts % (Manual) Lymphocytes % (Manual) Monocytes % (Manual) Nucleated RBC % Seg Neutrophils # Seg Neutrophils # Man Lymphocytes # (Manual) Monocytes # (Manual) Percent Retic Haptoglobin PT INR Fibrinogen D-Dimer POC ABG pH POC ABG pCO2 POC ABG pO2 Sodium 149 H 150 H Potassium 3.2 L 3.2 L Chloride 109.1 H Carbon Dioxide 8 L* 8 L* BUN 52 H 49 H Creatinine 3.4 H 3.1 H Glucose 723 H* 574 H* POC Glucose Lactic Acid 18.80 H* Calcium Phosphorus Magnesium Iron TIBC Transferrin Total Bilirubin Direct Bilirubin AST ALT Alkaline Phosphatase Lactate Dehydrogenase CK-MB (CK-2) Troponin T C-Reactive Protein Total Protein Albumin Triglycerides Cholesterol HDL Cholesterol Vitamin B12 Urine Creatinine Urine Total Protein Heparin-induced Plt Ab Hep Bs Antibody, Quant Crossmatch 12/04/16 12/04/16 12/04/16 13:01 14:41 16:06 WBC RBC Hgb Hct MCV MCHC RDW Plt Count Lymph % (Auto) [place] % (Auto) [place] # Baso # Seg Neutrophils % Seg Neuts % (Manual) Lymphocytes % (Manual) Monocytes % (Manual) Nucleated RBC % Seg Neutrophils # Seg Neutrophils # Man Lymphocytes # (Manual) Monocytes # (Manual) Percent Retic Haptoglobin PT INR Fibrinogen D-Dimer POC ABG pH POC ABG pCO2 POC ABG pO2 Sodium 151 H Potassium 3.2 L Chloride 108.1 H Carbon Dioxide 10 L BUN 49 H Creatinine 3.0 H Glucose 383 H POC Glucose 292 H Lactic Acid Calcium Phosphorus Magnesium Iron TIBC Transferrin Total Bilirubin Direct Bilirubin AST ALT Alkaline Phosphatase Lactate Dehydrogenase CK-MB (CK-2) Troponin T C-Reactive Protein 3.50 H Total Protein Albumin Triglycerides Cholesterol HDL Cholesterol Vitamin B12 Urine Creatinine Urine Total Protein Heparin-induced Plt Ab Hep Bs Antibody, Quant Crossmatch 12/04/16 12/04/16 12/04/16 17:15 17:25 18:07 WBC RBC Hgb Hct MCV MCHC RDW Plt Count Lymph % (Auto) [place] % (Auto) [place] # Baso # Seg Neutrophils % Seg Neuts % (Manual) Lymphocytes % (Manual) Monocytes % (Manual) Nucleated RBC % Seg Neutrophils # Seg Neutrophils # Man Lymphocytes # (Manual) Monocytes # (Manual) Percent Retic Haptoglobin PT INR Fibrinogen D-Dimer POC ABG pH 7.255 L POC ABG pCO2 16.9 L POC ABG pO2 169 H Sodium Potassium Chloride Carbon Dioxide BUN Creatinine Glucose POC Glucose 246 H Lactic Acid 18.50 H* Calcium Phosphorus Magnesium Iron TIBC Transferrin Total Bilirubin Direct Bilirubin AST ALT Alkaline Phosphatase Lactate Dehydrogenase CK-MB (CK-2) Troponin T C-Reactive Protein Total Protein Albumin Triglycerides Cholesterol HDL Cholesterol Vitamin B12 Urine Creatinine Urine Total Protein Heparin-induced Plt Ab Hep Bs Antibody, Quant Crossmatch 12/04/16 12/04/16 12/04/16 19:34 20:31 21:15 WBC RBC Hgb Hct MCV MCHC RDW Plt Count Lymph % (Auto) [place] % (Auto) [place] # Baso # Seg Neutrophils % Seg Neuts % (Manual) Lymphocytes % (Manual) Monocytes % (Manual) Nucleated RBC % Seg Neutrophils # Seg Neutrophils # Man Lymphocytes # (Manual) Monocytes # (Manual) Percent Retic Haptoglobin PT INR Fibrinogen D-Dimer POC ABG pH POC ABG pCO2 POC ABG pO2 Sodium Potassium Chloride Carbon Dioxide BUN Creatinine Glucose POC Glucose 189 H 126 H 139 H Lactic Acid Calcium Phosphorus Magnesium Iron TIBC Transferrin Total Bilirubin Direct Bilirubin AST ALT Alkaline Phosphatase Lactate Dehydrogenase CK-MB (CK-2) Troponin T C-Reactive Protein Total Protein Albumin Triglycerides Cholesterol HDL Cholesterol Vitamin B12 Urine Creatinine Urine Total Protein Heparin-induced Plt Ab Hep Bs Antibody, Quant Crossmatch 12/04/16 12/04/16 12/04/16 21:25 22:37 23:35 WBC RBC Hgb Hct MCV MCHC RDW Plt Count Lymph % (Auto) [place] % (Auto) [place] # Baso # Seg Neutrophils % Seg Neuts % (Manual) Lymphocytes % (Manual) Monocytes % (Manual) Nucleated RBC % Seg Neutrophils # Seg Neutrophils # Man Lymphocytes # (Manual) Monocytes # (Manual) Percent Retic Haptoglobin PT INR Fibrinogen D-Dimer POC ABG pH 7.294 L POC ABG pCO2 16.7 L POC ABG pO2 169 H Sodium Potassium Chloride Carbon Dioxide BUN Creatinine Glucose POC Glucose 131 H 106 H Lactic Acid Calcium Phosphorus Magnesium Iron TIBC Transferrin Total Bilirubin Direct Bilirubin AST ALT Alkaline Phosphatase Lactate Dehydrogenase CK-MB (CK-2) Troponin T C-Reactive Protein Total Protein Albumin Triglycerides Cholesterol HDL Cholesterol Vitamin B12 Urine Creatinine Urine Total Protein Heparin-induced Plt Ab Hep Bs Antibody, Quant Crossmatch 12/05/16 12/05/16 12/05/16 02:40 02:50 02:50 WBC RBC Hgb Hct MCV MCHC RDW Plt Count Lymph % (Auto) [place] % (Auto) [place] # Baso # Seg Neutrophils % Seg Neuts % (Manual) Lymphocytes % (Manual) Monocytes % (Manual) Nucleated RBC % Seg Neutrophils # Seg Neutrophils # Man Lymphocytes # (Manual) Monocytes # (Manual) Percent Retic Haptoglobin PT INR Fibrinogen D-Dimer POC ABG pH POC ABG pCO2 POC ABG pO2 Sodium 151 H Potassium Chloride 113.8 H Carbon Dioxide 12 L BUN 46 H Creatinine 3.2 H Glucose 165 H POC Glucose 109 H Lactic Acid 9.80 H* Calcium 8.3 L Phosphorus Magnesium Iron TIBC Transferrin Total Bilirubin Direct Bilirubin AST ALT Alkaline Phosphatase Lactate Dehydrogenase CK-MB (CK-2) Troponin T C-Reactive Protein Total Protein Albumin Triglycerides Cholesterol HDL Cholesterol Vitamin B12 Urine Creatinine Urine Total Protein Heparin-induced Plt Ab Hep Bs Antibody, Quant Crossmatch 12/05/16 12/05/16 12/05/16 04:01 04:30 04:30 WBC 19.1 H RBC 2.91 L Hgb 8.0 L Hct 25.4 L MCV MCHC RDW 17.8 H Plt Count Lymph % (Auto) Norman % (Auto) [place] # Baso # Seg Neutrophils % Seg Neuts % (Manual) 17.0 L Lymphocytes % (Manual) 7.0 L Monocytes % (Manual) Nucleated RBC % 3.0 H Seg Neutrophils # Seg Neutrophils # Man Lymphocytes # (Manual) Monocytes # (Manual) Percent Retic Haptoglobin PT INR Fibrinogen D-Dimer POC ABG pH POC ABG pCO2 POC ABG pO2 Sodium 152 H Potassium Chloride 113.5 H Carbon Dioxide 12 L BUN 47 H Creatinine 3.2 H Glucose 133 H POC Glucose 179 H Lactic Acid Calcium 8.3 L Phosphorus 1.00 L D Magnesium Iron TIBC Transferrin Total Bilirubin Direct Bilirubin AST ALT Alkaline Phosphatase Lactate Dehydrogenase CK-MB (CK-2) Troponin T C-Reactive Protein Total Protein Albumin Triglycerides Cholesterol HDL Cholesterol Vitamin B12 Urine Creatinine Urine Total Protein Heparin-induced Plt Ab Hep Bs Antibody, Quant Crossmatch 12/05/16 12/05/16 12/05/16 05:32 08:01 08:48 WBC RBC Hgb Hct MCV MCHC RDW Plt Count Lymph % (Auto) [place] % (Auto) [place] # Baso # Seg Neutrophils % Seg Neuts % (Manual) Lymphocytes % (Manual) Monocytes % (Manual) Nucleated RBC % Seg Neutrophils # Seg Neutrophils # Man Lymphocytes # (Manual) Monocytes # (Manual) Percent Retic Haptoglobin PT INR Fibrinogen D-Dimer POC ABG pH POC ABG pCO2 17.6 L POC ABG pO2 62 L Sodium Potassium Chloride Carbon Dioxide BUN Creatinine Glucose POC Glucose 126 H 130 H Lactic Acid Calcium Phosphorus Magnesium Iron TIBC Transferrin Total Bilirubin Direct Bilirubin AST ALT Alkaline Phosphatase Lactate Dehydrogenase CK-MB (CK-2) Troponin T C-Reactive Protein Total Protein Albumin Triglycerides Cholesterol HDL Cholesterol Vitamin B12 Urine Creatinine Urine Total Protein Heparin-induced Plt Ab Hep Bs Antibody, Quant Crossmatch 12/05/16 12/05/16 12/05/16 08:54 12:01 15:15 WBC RBC Hgb Hct MCV MCHC RDW Plt Count Lymph % (Auto) [place] % (Auto) [place] # Baso # Seg Neutrophils % Seg Neuts % (Manual) Lymphocytes % (Manual) Monocytes % (Manual) Nucleated RBC % Seg Neutrophils # Seg Neutrophils # Man Lymphocytes # (Manual) Monocytes # (Manual) Percent Retic Haptoglobin PT INR Fibrinogen D-Dimer POC ABG pH POC ABG pCO2 POC ABG pO2 Sodium Potassium Chloride Carbon Dioxide BUN Creatinine Glucose POC Glucose 157 H 117 H 166 H Lactic Acid Calcium Phosphorus Magnesium Iron TIBC Transferrin Total Bilirubin Direct Bilirubin AST ALT Alkaline Phosphatase Lactate Dehydrogenase CK-MB (CK-2) Troponin T C-Reactive Protein Total Protein Albumin Triglycerides Cholesterol HDL Cholesterol Vitamin B12 Urine Creatinine Urine Total Protein Heparin-induced Plt Ab Hep Bs Antibody, Quant Crossmatch 12/05/16 12/05/16 12/05/16 16:10 16:55 17:08 WBC RBC Hgb Hct MCV MCHC RDW Plt Count Lymph % (Auto) [place] % (Auto) [place] # Baso # Seg Neutrophils % Seg Neuts % (Manual) Lymphocytes % (Manual) Monocytes % (Manual) Nucleated RBC % Seg Neutrophils # Seg Neutrophils # Man Lymphocytes # (Manual) Monocytes # (Manual) Percent Retic Haptoglobin PT INR Fibrinogen D-Dimer POC ABG pH POC ABG pCO2 POC ABG pO2 Sodium Potassium Chloride Carbon Dioxide BUN Creatinine Glucose POC Glucose 178 H 169 H Lactic Acid Calcium Phosphorus 5.00 H D Magnesium Iron TIBC Transferrin Total Bilirubin Direct Bilirubin AST ALT Alkaline Phosphatase Lactate Dehydrogenase CK-MB (CK-2) Troponin T C-Reactive Protein Total Protein Albumin Triglycerides Cholesterol HDL Cholesterol Vitamin B12 Urine Creatinine Urine Total Protein Heparin-induced Plt Ab Hep Bs Antibody, Quant Crossmatch 12/05/16 12/05/16 12/05/16 18:08 18:51 20:04 WBC RBC Hgb Hct MCV MCHC RDW Plt Count Lymph % (Auto) [place] % (Auto) [place] # Baso # Seg Neutrophils % Seg Neuts % (Manual) Lymphocytes % (Manual) Monocytes % (Manual) Nucleated RBC % Seg Neutrophils # Seg Neutrophils # Man Lymphocytes # (Manual) Monocytes # (Manual) Percent Retic Haptoglobin PT INR Fibrinogen D-Dimer POC ABG pH POC ABG pCO2 POC ABG pO2 Sodium Potassium Chloride Carbon Dioxide BUN Creatinine Glucose POC Glucose 147 H 113 H 64 L Lactic Acid Calcium Phosphorus Magnesium Iron TIBC Transferrin Total Bilirubin Direct Bilirubin AST ALT Alkaline Phosphatase Lactate Dehydrogenase CK-MB (CK-2) Troponin T C-Reactive Protein Total Protein Albumin Triglycerides Cholesterol HDL Cholesterol Vitamin B12 Urine Creatinine Urine Total Protein Heparin-induced Plt Ab Hep Bs Antibody, Quant Crossmatch 12/05/16 12/05/16 12/05/16 21:34 22:08 23:19 WBC RBC Hgb Hct MCV MCHC RDW Plt Count Lymph % (Auto) [place] % (Auto) [place] # Baso # Seg Neutrophils % Seg Neuts % (Manual) Lymphocytes % (Manual) Monocytes % (Manual) Nucleated RBC % Seg Neutrophils # Seg Neutrophils # Man Lymphocytes # (Manual) Monocytes # (Manual) Percent Retic Haptoglobin PT INR Fibrinogen D-Dimer POC ABG pH 7.303 L POC ABG pCO2 18.3 L POC ABG pO2 73 L Sodium Potassium Chloride Carbon Dioxide BUN Creatinine Glucose POC Glucose 141 H 200 H Lactic Acid Calcium Phosphorus Magnesium Iron TIBC Transferrin Total Bilirubin Direct Bilirubin AST ALT Alkaline Phosphatase Lactate Dehydrogenase CK-MB (CK-2) Troponin T C-Reactive Protein Total Protein Albumin Triglycerides Cholesterol HDL Cholesterol Vitamin B12 Urine Creatinine Urine Total Protein Heparin-induced Plt Ab Hep Bs Antibody, Quant Crossmatch 12/06/16 12/06/16 12/06/16 00:01 01:09 02:00 WBC RBC Hgb Hct MCV MCHC RDW Plt Count Lymph % (Auto) [place] % (Auto) [place] # Baso # Seg Neutrophils % Seg Neuts % (Manual) Lymphocytes % (Manual) Monocytes % (Manual) Nucleated RBC % Seg Neutrophils # Seg Neutrophils # Man Lymphocytes # (Manual) Monocytes # (Manual) Percent Retic Haptoglobin PT INR Fibrinogen D-Dimer POC ABG pH POC ABG pCO2 POC ABG pO2 Sodium Potassium Chloride Carbon Dioxide BUN Creatinine Glucose POC Glucose 211 H 116 H 57 L Lactic Acid Calcium Phosphorus Magnesium Iron TIBC Transferrin Total Bilirubin Direct Bilirubin AST ALT Alkaline Phosphatase Lactate Dehydrogenase CK-MB (CK-2) Troponin T C-Reactive Protein Total Protein Albumin Triglycerides Cholesterol HDL Cholesterol Vitamin B12 Urine Creatinine Urine Total Protein Heparin-induced Plt Ab Hep Bs Antibody, Quant Crossmatch 12/06/16 12/06/16 12/06/16 04:14 04:50 04:50 WBC RBC 2.68 L Hgb 7.6 L Hct 23.2 L MCV MCHC RDW 18.9 H Plt Count Lymph % (Auto) [place] % (Auto) [place] # Baso # Seg Neutrophils % Seg Neuts % (Manual) 32.0 L Lymphocytes % (Manual) Monocytes % (Manual) Nucleated RBC % 3.0 H Seg Neutrophils # Seg Neutrophils # Man Lymphocytes # (Manual) 0.9 L Monocytes # (Manual) Percent Retic Haptoglobin PT INR Fibrinogen D-Dimer POC ABG pH POC ABG pCO2 POC ABG pO2 Sodium Potassium 5.8 H D Chloride 111.5 H Carbon Dioxide 11 L BUN 52 H Creatinine 3.8 H Glucose 186 H POC Glucose 133 H Lactic Acid Calcium 6.5 L D Phosphorus 5.80 H Magnesium Iron TIBC Transferrin Total Bilirubin Direct Bilirubin AST ALT Alkaline Phosphatase Lactate Dehydrogenase CK-MB (CK-2) Troponin T C-Reactive Protein Total Protein Albumin Triglycerides Cholesterol HDL Cholesterol Vitamin B12 Urine Creatinine Urine Total Protein Heparin-induced Plt Ab Hep Bs Antibody, Quant Crossmatch 12/06/16 12/06/16 12/06/16 04:50 05:04 05:07 WBC RBC Hgb Hct MCV MCHC RDW Plt Count Lymph % (Auto) [place] % (Auto) [place] # Baso # Seg Neutrophils % Seg Neuts % (Manual) Lymphocytes % (Manual) Monocytes % (Manual) Nucleated RBC % Seg Neutrophils # Seg Neutrophils # Man Lymphocytes # (Manual) Monocytes # (Manual) Percent Retic Haptoglobin PT INR Fibrinogen D-Dimer POC ABG pH POC ABG pCO2 13.0 L POC ABG pO2 111 H Sodium Potassium Chloride Carbon Dioxide BUN Creatinine Glucose POC Glucose 127 H Lactic Acid 6.50 H* Calcium Phosphorus Magnesium Iron TIBC Transferrin Total Bilirubin Direct Bilirubin AST ALT Alkaline Phosphatase Lactate Dehydrogenase CK-MB (CK-2) Troponin T C-Reactive Protein Total Protein Albumin Triglycerides Cholesterol HDL Cholesterol Vitamin B12 Urine Creatinine Urine Total Protein Heparin-induced Plt Ab Hep Bs Antibody, Quant Crossmatch 12/06/16 12/06/16 12/06/16 06:10 06:54 07:46 WBC RBC Hgb Hct MCV MCHC RDW Plt Count Lymph % (Auto) [place] % (Auto) [place] # Baso # Seg Neutrophils % Seg Neuts % (Manual) Lymphocytes % (Manual) Monocytes % (Manual) Nucleated RBC % Seg Neutrophils # Seg Neutrophils # Man Lymphocytes # (Manual) Monocytes # (Manual) Percent Retic Haptoglobin PT INR Fibrinogen D-Dimer POC ABG pH POC ABG pCO2 POC ABG pO2 Sodium Potassium Chloride Carbon Dioxide BUN Creatinine Glucose POC Glucose 219 H 237 H 158 H Lactic Acid Calcium Phosphorus Magnesium Iron TIBC Transferrin Total Bilirubin Direct Bilirubin AST ALT Alkaline Phosphatase Lactate Dehydrogenase CK-MB (CK-2) Troponin T C-Reactive Protein Total Protein Albumin Triglycerides Cholesterol HDL Cholesterol Vitamin B12 Urine Creatinine Urine Total Protein Heparin-induced Plt Ab Hep Bs Antibody, Quant Crossmatch 12/06/16 12/06/16 12/06/16 08:55 10:27 11:58 WBC RBC Hgb Hct MCV MCHC RDW Plt Count Lymph % (Auto) [place] % (Auto) [place] # Baso # Seg Neutrophils % Seg Neuts % (Manual) Lymphocytes % (Manual) Monocytes % (Manual) Nucleated RBC % Seg Neutrophils # Seg Neutrophils # Man Lymphocytes # (Manual) Monocytes # (Manual) Percent Retic Haptoglobin PT INR Fibrinogen D-Dimer POC ABG pH POC ABG pCO2 POC ABG pO2 Sodium Potassium Chloride Carbon Dioxide BUN Creatinine Glucose POC Glucose 40 L 128 H 144 H Lactic Acid Calcium Phosphorus Magnesium Iron TIBC Transferrin Total Bilirubin Direct Bilirubin AST ALT Alkaline Phosphatase Lactate Dehydrogenase CK-MB (CK-2) Troponin T C-Reactive Protein Total Protein Albumin Triglycerides Cholesterol HDL Cholesterol Vitamin B12 Urine Creatinine Urine Total Protein Heparin-induced Plt Ab Hep Bs Antibody, Quant Crossmatch 12/06/16 12/06/16 12/06/16 18:14 19:00 19:06 WBC RBC Hgb Hct MCV MCHC RDW Plt Count Lymph % (Auto) [place] % (Auto) [place] # Baso # Seg Neutrophils % Seg Neuts % (Manual) Lymphocytes % (Manual) Monocytes % (Manual) Nucleated RBC % Seg Neutrophils # Seg Neutrophils # Man Lymphocytes # (Manual) Monocytes # (Manual) Percent Retic Haptoglobin PT INR Fibrinogen D-Dimer POC ABG pH POC ABG pCO2 POC ABG pO2 Sodium 149 H Potassium 5.6 H Chloride 115.9 H Carbon Dioxide 13 L BUN 56 H Creatinine 4.3 H Glucose 124 H POC Glucose 55 L 148 H Lactic Acid Calcium 6.0 L Phosphorus Magnesium Iron TIBC Transferrin Total Bilirubin Direct Bilirubin AST ALT Alkaline Phosphatase Lactate Dehydrogenase CK-MB (CK-2) Troponin T C-Reactive Protein Total Protein Albumin Triglycerides Cholesterol HDL Cholesterol Vitamin B12 Urine Creatinine Urine Total Protein Heparin-induced Plt Ab Hep Bs Antibody, Quant Crossmatch 12/06/16 12/06/16 12/07/16 21:24 21:51 02:32 WBC RBC Hgb Hct MCV MCHC RDW Plt Count Lymph % (Auto) [place] % (Auto) [place] # Baso # Seg Neutrophils % Seg Neuts % (Manual) Lymphocytes % (Manual) Monocytes % (Manual) Nucleated RBC % Seg Neutrophils # Seg Neutrophils # Man Lymphocytes # (Manual) Monocytes # (Manual) Percent Retic Haptoglobin PT INR Fibrinogen D-Dimer POC ABG pH POC ABG pCO2 17.0 L POC ABG pO2 142 H Sodium Potassium Chloride Carbon Dioxide BUN Creatinine Glucose POC Glucose 107 H 175 H Lactic Acid Calcium Phosphorus Magnesium Iron TIBC Transferrin Total Bilirubin Direct Bilirubin AST ALT Alkaline Phosphatase Lactate Dehydrogenase CK-MB (CK-2) Troponin T C-Reactive Protein Total Protein Albumin Triglycerides Cholesterol HDL Cholesterol Vitamin B12 Urine Creatinine Urine Total Protein Heparin-induced Plt Ab Hep Bs Antibody, Quant Crossmatch 12/07/16 12/07/16 12/07/16 05:01 05:25 06:00 WBC RBC 2.52 L Hgb 7.1 L Hct 22.1 L MCV MCHC RDW 19.3 H Plt Count 90 L Lymph % (Auto) [place] % (Auto) [place] # Baso # Seg Neutrophils % Seg Neuts % (Manual) 75.0 H Lymphocytes % (Manual) 11.0 L Monocytes % (Manual) Nucleated RBC % Seg Neutrophils # Seg Neutrophils # Man Lymphocytes # (Manual) 0.7 L Monocytes # (Manual) Percent Retic Haptoglobin PT INR Fibrinogen D-Dimer POC ABG pH 7.300 L POC ABG pCO2 17.1 L POC ABG pO2 140 H Sodium Potassium Chloride Carbon Dioxide BUN Creatinine Glucose POC Glucose 279 H Lactic Acid Calcium Phosphorus Magnesium Iron TIBC Transferrin Total Bilirubin Direct Bilirubin AST ALT Alkaline Phosphatase Lactate Dehydrogenase CK-MB (CK-2) Troponin T C-Reactive Protein Total Protein Albumin Triglycerides Cholesterol HDL Cholesterol Vitamin B12 Urine Creatinine Urine Total Protein Heparin-induced Plt Ab Hep Bs Antibody, Quant Crossmatch 12/07/16 12/07/16 12/07/16 06:00 06:00 07:30 WBC RBC Hgb Hct MCV MCHC RDW Plt Count Lymph % (Auto) [place] % (Auto) [place] # Baso # Seg Neutrophils % Seg Neuts % (Manual) Lymphocytes % (Manual) Monocytes % (Manual) Nucleated RBC % Seg Neutrophils # Seg Neutrophils # Man Lymphocytes # (Manual) Monocytes # (Manual) Percent Retic Haptoglobin PT INR Fibrinogen D-Dimer POC ABG pH POC ABG pCO2 POC ABG pO2 Sodium Potassium Chloride Carbon Dioxide BUN Creatinine Glucose POC Glucose Lactic Acid 6.90 H* Calcium Phosphorus 6.80 H Magnesium Iron TIBC Transferrin Total Bilirubin Direct Bilirubin AST ALT Alkaline Phosphatase Lactate Dehydrogenase CK-MB (CK-2) Troponin T C-Reactive Protein 39.40 H Total Protein Albumin Triglycerides Cholesterol HDL Cholesterol Vitamin B12 Urine Creatinine Urine Total Protein Heparin-induced Plt Ab Hep Bs Antibody, Quant Crossmatch 12/07/16 12/07/16 12/07/16 08:40 10:53 14:31 WBC RBC Hgb Hct MCV MCHC RDW Plt Count Lymph % (Auto) [place] % (Auto) [place] # Baso # Seg Neutrophils % Seg Neuts % (Manual) Lymphocytes % (Manual) Monocytes % (Manual) Nucleated RBC % Seg Neutrophils # Seg Neutrophils # Man Lymphocytes # (Manual) Monocytes # (Manual) Percent Retic Haptoglobin PT INR Fibrinogen D-Dimer POC ABG pH POC ABG pCO2 POC ABG pO2 Sodium Potassium 7.0 H* D Chloride 112.4 H Carbon Dioxide 8 L* BUN 61 H Creatinine 5.1 H Glucose 213 H POC Glucose 353 H 52 L Lactic Acid Calcium 5.8 L* Phosphorus Magnesium Iron TIBC Transferrin Total Bilirubin Direct Bilirubin AST ALT Alkaline Phosphatase Lactate Dehydrogenase CK-MB (CK-2) Troponin T C-Reactive Protein Total Protein Albumin Triglycerides Cholesterol HDL Cholesterol Vitamin B12 Urine Creatinine Urine Total Protein Heparin-induced Plt Ab Hep Bs Antibody, Quant Crossmatch 12/07/16 12/07/16 12/07/16 14:45 15:33 16:22 WBC RBC Hgb Hct MCV MCHC RDW Plt Count Lymph % (Auto) [place] % (Auto) [place] # Baso # Seg Neutrophils % Seg Neuts % (Manual) Lymphocytes % (Manual) Monocytes % (Manual) Nucleated RBC % Seg Neutrophils # Seg Neutrophils # Man Lymphocytes # (Manual) Monocytes # (Manual) Percent Retic Haptoglobin PT 17.5 H INR 1.44 H Fibrinogen D-Dimer POC ABG pH POC ABG pCO2 POC ABG pO2 Sodium Potassium Chloride Carbon Dioxide BUN Creatinine Glucose POC Glucose < 40 L 118 H Lactic Acid Calcium Phosphorus Magnesium Iron TIBC Transferrin Total Bilirubin Direct Bilirubin AST ALT Alkaline Phosphatase Lactate Dehydrogenase CK-MB (CK-2) Troponin T C-Reactive Protein Total Protein Albumin Triglycerides Cholesterol HDL Cholesterol Vitamin B12 Urine Creatinine Urine Total Protein Heparin-induced Plt Ab Hep Bs Antibody, Quant Crossmatch 12/07/16 12/07/16 12/07/16 21:35 21:35 21:58 WBC RBC Hgb Hct MCV MCHC RDW Plt Count Lymph % (Auto) [place] % (Auto) [place] # Baso # Seg Neutrophils % Seg Neuts % (Manual) Lymphocytes % (Manual) Monocytes % (Manual) Nucleated RBC % Seg Neutrophils # Seg Neutrophils # Man Lymphocytes # (Manual) Monocytes # (Manual) Percent Retic Haptoglobin PT INR Fibrinogen D-Dimer POC ABG pH POC ABG pCO2 POC ABG pO2 Sodium 150 H Potassium 3.3 L D Chloride 111.4 H Carbon Dioxide 21 L D BUN 22 H Creatinine 2.6 H Glucose 23 L* POC Glucose < 40 L Lactic Acid Calcium Phosphorus Magnesium Iron TIBC Transferrin Total Bilirubin 1.40 H Direct Bilirubin 0.9 H AST 94 H ALT 142 H Alkaline Phosphatase 249 H Lactate Dehydrogenase CK-MB (CK-2) Troponin T C-Reactive Protein Total Protein 4.6 L D Albumin 2.1 L Triglycerides Cholesterol HDL Cholesterol Vitamin B12 Urine Creatinine Urine Total Protein Heparin-induced Plt Ab Hep Bs Antibody, Quant Crossmatch 12/07/16 12/08/16 12/08/16 23:31 04:43 04:50 WBC RBC 2.35 L Hgb 6.6 L Hct 20.1 L MCV MCHC RDW 17.8 H Plt Count 48 L Lymph % (Auto) [place] % (Auto) [place] # Baso # Seg Neutrophils % Seg Neuts % (Manual) Lymphocytes % (Manual) Monocytes % (Manual) Nucleated RBC % Seg Neutrophils # Seg Neutrophils # Man Lymphocytes # (Manual) 0.9 L Monocytes # (Manual) Percent Retic Haptoglobin PT INR Fibrinogen D-Dimer POC ABG pH 7.586 H POC ABG pCO2 17.7 L POC ABG pO2 150 H Sodium Potassium Chloride Carbon Dioxide BUN Creatinine Glucose POC Glucose 42 L Lactic Acid Calcium Phosphorus Magnesium Iron TIBC Transferrin Total Bilirubin Direct Bilirubin AST ALT Alkaline Phosphatase Lactate Dehydrogenase CK-MB (CK-2) Troponin T C-Reactive Protein Total Protein Albumin Triglycerides Cholesterol HDL Cholesterol Vitamin B12 Urine Creatinine Urine Total Protein Heparin-induced Plt Ab Hep Bs Antibody, Quant Crossmatch 12/08/16 12/08/16 12/08/16 04:50 04:59 06:54 WBC RBC Hgb Hct MCV MCHC RDW Plt Count Lymph % (Auto) [place] % (Auto) [place] # Baso # Seg Neutrophils % Seg Neuts % (Manual) Lymphocytes % (Manual) Monocytes % (Manual) Nucleated RBC % Seg Neutrophils # Seg Neutrophils # Man Lymphocytes # (Manual) Monocytes # (Manual) Percent Retic Haptoglobin PT INR Fibrinogen D-Dimer POC ABG pH POC ABG pCO2 POC ABG pO2 Sodium 149 H Potassium 3.2 L Chloride 111.8 H Carbon Dioxide 17 L BUN 26 H Creatinine 3.4 H Glucose 163 H POC Glucose 204 H 203 H Lactic Acid Calcium 7.7 L Phosphorus 2.40 L D Magnesium Iron TIBC Transferrin Total Bilirubin Direct Bilirubin AST ALT Alkaline Phosphatase Lactate Dehydrogenase CK-MB (CK-2) Troponin T C-Reactive Protein Total Protein Albumin Triglycerides Cholesterol HDL Cholesterol Vitamin B12 Urine Creatinine Urine Total Protein Heparin-induced Plt Ab Hep Bs Antibody, Quant Crossmatch 12/08/16 12/08/16 12/08/16 08:04 08:46 08:46 WBC RBC Hgb Hct MCV MCHC RDW Plt Count Lymph % (Auto) [place] % (Auto) [place] # Baso # Seg Neutrophils % Seg Neuts % (Manual) Lymphocytes % (Manual) Monocytes % (Manual) Nucleated RBC % Seg Neutrophils # Seg Neutrophils # Man Lymphocytes # (Manual) Monocytes # (Manual) Percent Retic Haptoglobin PT INR Fibrinogen D-Dimer POC ABG pH POC ABG pCO2 POC ABG pO2 Sodium 147 H Potassium 2.9 L* Chloride 110.6 H Carbon Dioxide 17 L BUN 28 H Creatinine 3.6 H Glucose 127 H POC Glucose 205 H Lactic Acid Calcium 7.3 L Phosphorus Magnesium Iron TIBC Transferrin Total Bilirubin Direct Bilirubin AST ALT Alkaline Phosphatase Lactate Dehydrogenase CK-MB (CK-2) Troponin T C-Reactive Protein Total Protein Albumin Triglycerides Cholesterol HDL Cholesterol Vitamin B12 Urine Creatinine Urine Total Protein Heparin-induced Plt Ab Hep Bs Antibody, Quant Crossmatch See Detail 12/08/16 12/08/16 12/08/16 12:36 19:00 19:00 WBC RBC Hgb Hct MCV MCHC RDW Plt Count Lymph % (Auto) [place] % (Auto) [place] # Baso # Seg Neutrophils % Seg Neuts % (Manual) Lymphocytes % (Manual) Monocytes % (Manual) Nucleated RBC % Seg Neutrophils # Seg Neutrophils # Man Lymphocytes # (Manual) Monocytes # (Manual) Percent Retic Haptoglobin PT 15.3 H INR 1.22 H Fibrinogen 563 H D-Dimer 5507.36 H POC ABG pH POC ABG pCO2 POC ABG pO2 Sodium Potassium Chloride Carbon Dioxide 21 L BUN Creatinine 1.7 H D Glucose 155 H POC Glucose 181 H Lactic Acid Calcium Phosphorus Magnesium Iron TIBC Transferrin Total Bilirubin Direct Bilirubin AST ALT Alkaline Phosphatase Lactate Dehydrogenase CK-MB (CK-2) Troponin T C-Reactive Protein Total Protein Albumin Triglycerides Cholesterol HDL Cholesterol Vitamin B12 Urine Creatinine Urine Total Protein Heparin-induced Plt Ab Hep Bs Antibody, Quant Crossmatch 12/08/16 12/08/16 12/08/16 19:00 19:00 21:30 WBC RBC 2.76 L Hgb 7.8 L Hct 23.7 L MCV MCHC RDW 17.0 H Plt Count 38 L Lymph % (Auto) [place] % (Auto) [place] # Baso # Seg Neutrophils % Seg Neuts % (Manual) Lymphocytes % (Manual) Monocytes % (Manual) Nucleated RBC % Seg Neutrophils # Seg Neutrophils # Man Lymphocytes # (Manual) Monocytes # (Manual) Percent Retic Haptoglobin 271 H PT INR Fibrinogen D-Dimer POC ABG pH POC ABG pCO2 POC ABG pO2 Sodium Potassium Chloride Carbon Dioxide BUN Creatinine Glucose POC Glucose Lactic Acid Calcium Phosphorus Magnesium Iron TIBC Transferrin Total Bilirubin Direct Bilirubin AST ALT Alkaline Phosphatase Lactate Dehydrogenase 382 H CK-MB (CK-2) Troponin T C-Reactive Protein Total Protein Albumin Triglycerides Cholesterol HDL Cholesterol Vitamin B12 Urine Creatinine Urine Total Protein Heparin-induced Plt Ab Hep Bs Antibody, Quant Crossmatch 12/08/16 12/08/16 12/09/16 23:32 23:44 05:22 WBC RBC Hgb Hct MCV MCHC RDW Plt Count Lymph % (Auto) [place] % (Auto) [place] # Baso # Seg Neutrophils % Seg Neuts % (Manual) Lymphocytes % (Manual) Monocytes % (Manual) Nucleated RBC % Seg Neutrophils # Seg Neutrophils # Man Lymphocytes # (Manual) Monocytes # (Manual) Percent Retic Haptoglobin PT INR Fibrinogen D-Dimer POC ABG pH 7.498 H POC ABG pCO2 25.2 L POC ABG pO2 137 H Sodium Potassium Chloride Carbon Dioxide BUN Creatinine Glucose POC Glucose 311 H 113 H Lactic Acid Calcium Phosphorus Magnesium Iron TIBC Transferrin Total Bilirubin Direct Bilirubin AST ALT Alkaline Phosphatase Lactate Dehydrogenase CK-MB (CK-2) Troponin T C-Reactive Protein Total Protein Albumin Triglycerides Cholesterol HDL Cholesterol Vitamin B12 Urine Creatinine Urine Total Protein Heparin-induced Plt Ab Hep Bs Antibody, Quant Crossmatch 12/09/16 12/09/16 12/09/16 06:00 11:29 11:59 WBC RBC Hgb Hct MCV MCHC RDW Plt Count Lymph % (Auto) [place] % (Auto) [place] # Baso # Seg Neutrophils % Seg Neuts % (Manual) Lymphocytes % (Manual) Monocytes % (Manual) Nucleated RBC % Seg Neutrophils # Seg Neutrophils # Man Lymphocytes # (Manual) Monocytes # (Manual) Percent Retic 0.23 L Haptoglobin PT INR Fibrinogen D-Dimer POC ABG pH POC ABG pCO2 POC ABG pO2 Sodium Potassium Chloride 110.2 H Carbon Dioxide 18 L BUN 19 H Creatinine 2.5 H Glucose 105 H POC Glucose 254 H Lactic Acid Calcium Phosphorus 2.00 L Magnesium Iron TIBC Transferrin Total Bilirubin Direct Bilirubin AST ALT Alkaline Phosphatase Lactate Dehydrogenase CK-MB (CK-2) Troponin T C-Reactive Protein Total Protein Albumin Triglycerides Cholesterol HDL Cholesterol Vitamin B12 Urine Creatinine Urine Total Protein Heparin-induced Plt Ab Hep Bs Antibody, Quant Crossmatch 12/09/16 12/09/16 12/09/16 12:02 13:27 13:27 WBC RBC Hgb Hct MCV MCHC RDW Plt Count Lymph % (Auto) [place] % (Auto) [place] # Baso # Seg Neutrophils % Seg Neuts % (Manual) Lymphocytes % (Manual) Monocytes % (Manual) Nucleated RBC % Seg Neutrophils # Seg Neutrophils # Man Lymphocytes # (Manual) Monocytes # (Manual) Percent Retic Haptoglobin PT INR Fibrinogen D-Dimer POC ABG pH 7.326 L POC ABG pCO2 POC ABG pO2 115 H Sodium Potassium Chloride Carbon Dioxide BUN Creatinine Glucose POC Glucose Lactic Acid Calcium Phosphorus Magnesium Iron 15 L TIBC 134 L Transferrin Total Bilirubin Direct Bilirubin AST ALT Alkaline Phosphatase Lactate Dehydrogenase CK-MB (CK-2) Troponin T C-Reactive Protein Total Protein Albumin Triglycerides Cholesterol HDL Cholesterol Vitamin B12 > 2000 H Urine Creatinine Urine Total Protein Heparin-induced Plt Ab Hep Bs Antibody, Quant Crossmatch 12/09/16 12/09/16 12/09/16 13:27 13:27 16:28 WBC RBC Hgb Hct MCV MCHC RDW Plt Count Lymph % (Auto) [place] % (Auto) [place] # Baso # Seg Neutrophils % Seg Neuts % (Manual) Lymphocytes % (Manual) Monocytes % (Manual) Nucleated RBC % Seg Neutrophils # Seg Neutrophils # Man Lymphocytes # (Manual) Monocytes # (Manual) Percent Retic Haptoglobin PT INR Fibrinogen D-Dimer POC ABG pH POC ABG pCO2 POC ABG pO2 Sodium Potassium Chloride Carbon Dioxide BUN Creatinine Glucose POC Glucose 199 H Lactic Acid Calcium Phosphorus Magnesium Iron TIBC Transferrin Total Bilirubin Direct Bilirubin AST ALT Alkaline Phosphatase Lactate Dehydrogenase CK-MB (CK-2) Troponin T C-Reactive Protein Total Protein Albumin Triglycerides Cholesterol HDL Cholesterol Vitamin B12 Urine Creatinine Urine Total Protein Heparin-induced Plt Ab Weak positive H Hep Bs Antibody, Quant <5 L Crossmatch 12/09/16 12/09/16 12/10/16 23:27 Unknown 05:36 WBC 11.3 H RBC 2.92 L Hgb 8.4 L Hct 25.3 L MCV MCHC RDW 16.9 H Plt Count 31 L Lymph % (Auto) [place] % (Auto) [place] # Baso # Seg Neutrophils % Seg Neuts % (Manual) Lymphocytes % (Manual) Monocytes % (Manual) Nucleated RBC % Seg Neutrophils # Seg Neutrophils # Man Lymphocytes # (Manual) Monocytes # (Manual) Percent Retic Haptoglobin PT INR Fibrinogen D-Dimer POC ABG pH POC ABG pCO2 POC ABG pO2 Sodium Potassium Chloride Carbon Dioxide BUN Creatinine Glucose POC Glucose 247 H 248 H Lactic Acid Calcium Phosphorus Magnesium Iron TIBC Transferrin Total Bilirubin Direct Bilirubin AST ALT Alkaline Phosphatase Lactate Dehydrogenase CK-MB (CK-2) Troponin T C-Reactive Protein Total Protein Albumin Triglycerides Cholesterol HDL Cholesterol Vitamin B12 Urine Creatinine Urine Total Protein Heparin-induced Plt Ab Hep Bs Antibody, Quant Crossmatch 12/10/16 12/10/16 12/10/16 09:55 09:55 11:49 WBC 21.2 H RBC 3.37 L Hgb 9.6 L Hct 29.5 L MCV MCHC RDW 16.3 H Plt Count 102 L D Lymph % (Auto) [place] % (Auto) [place] # Baso # Seg Neutrophils % Seg Neuts % (Manual) Lymphocytes % (Manual) Monocytes % (Manual) Nucleated RBC % Seg Neutrophils # Seg Neutrophils # Man Lymphocytes # (Manual) Monocytes # (Manual) Percent Retic Haptoglobin PT INR Fibrinogen D-Dimer POC ABG pH POC ABG pCO2 POC ABG pO2 Sodium Potassium Chloride 107.4 H Carbon Dioxide 21 L BUN 37 H Creatinine 4.2 H D Glucose 174 H POC Glucose 265 H Lactic Acid Calcium Phosphorus Magnesium Iron TIBC Transferrin Total Bilirubin Direct Bilirubin AST ALT Alkaline Phosphatase Lactate Dehydrogenase CK-MB (CK-2) Troponin T C-Reactive Protein Total Protein Albumin Triglycerides Cholesterol HDL Cholesterol Vitamin B12 Urine Creatinine Urine Total Protein Heparin-induced Plt Ab Hep Bs Antibody, Quant Crossmatch 12/10/16 12/10/16 12/11/16 17:56 23:44 04:30 WBC 23.5 H RBC 3.46 L Hgb 9.7 L Hct 30.1 L MCV MCHC RDW 16.4 H Plt Count 115 L Lymph % (Auto) [place] % (Auto) [place] # Baso # Seg Neutrophils % Seg Neuts % (Manual) 84.0 H Lymphocytes % (Manual) 5.0 L Monocytes % (Manual) 10.0 H Nucleated RBC % 1.0 H Seg Neutrophils # Seg Neutrophils # Man 19.7 H Lymphocytes # (Manual) Monocytes # (Manual) 2.4 H Percent Retic Haptoglobin PT INR Fibrinogen D-Dimer POC ABG pH POC ABG pCO2 POC ABG pO2 Sodium Potassium Chloride Carbon Dioxide BUN Creatinine Glucose POC Glucose 118 H 378 H Lactic Acid Calcium Phosphorus Magnesium Iron TIBC Transferrin Total Bilirubin Direct Bilirubin AST ALT Alkaline Phosphatase Lactate Dehydrogenase CK-MB (CK-2) Troponin T C-Reactive Protein Total Protein Albumin Triglycerides Cholesterol HDL Cholesterol Vitamin B12 Urine Creatinine Urine Total Protein Heparin-induced Plt Ab Hep Bs Antibody, Quant Crossmatch 12/11/16 12/11/16 12/11/16 04:30 05:33 12:48 WBC RBC Hgb Hct MCV MCHC RDW Plt Count Lymph % (Auto) [place] % (Auto) [place] # Baso # Seg Neutrophils % Seg Neuts % (Manual) Lymphocytes % (Manual) Monocytes % (Manual) Nucleated RBC % Seg Neutrophils # Seg Neutrophils # Man Lymphocytes # (Manual) Monocytes # (Manual) Percent Retic Haptoglobin PT INR Fibrinogen D-Dimer POC ABG pH POC ABG pCO2 POC ABG pO2 Sodium Potassium Chloride Carbon Dioxide 21 L BUN 50 H Creatinine 4.8 H Glucose 303 H POC Glucose 335 H 325 H Lactic Acid Calcium 8.2 L Phosphorus Magnesium Iron TIBC Transferrin Total Bilirubin Direct Bilirubin AST ALT Alkaline Phosphatase Lactate Dehydrogenase CK-MB (CK-2) Troponin T C-Reactive Protein Total Protein Albumin Triglycerides Cholesterol HDL Cholesterol Vitamin B12 Urine Creatinine Urine Total Protein Heparin-induced Plt Ab Hep Bs Antibody, Quant Crossmatch 12/11/16 12/11/16 12/12/16 17:49 21:16 00:49 WBC RBC Hgb Hct MCV MCHC RDW Plt Count Lymph % (Auto) [place] % (Auto) [place] # Baso # Seg Neutrophils % Seg Neuts % (Manual) Lymphocytes % (Manual) Monocytes % (Manual) Nucleated RBC % Seg Neutrophils # Seg Neutrophils # Man Lymphocytes # (Manual) Monocytes # (Manual) Percent Retic Haptoglobin PT INR Fibrinogen D-Dimer POC ABG pH POC ABG pCO2 POC ABG pO2 Sodium Potassium Chloride Carbon Dioxide BUN Creatinine Glucose POC Glucose 368 H 162 H 225 H Lactic Acid Calcium Phosphorus Magnesium Iron TIBC Transferrin Total Bilirubin Direct Bilirubin AST ALT Alkaline Phosphatase Lactate Dehydrogenase CK-MB (CK-2) Troponin T C-Reactive Protein Total Protein Albumin Triglycerides Cholesterol HDL Cholesterol Vitamin B12 Urine Creatinine Urine Total Protein Heparin-induced Plt Ab Hep Bs Antibody, Quant Crossmatch 12/12/16 12/12/16 12/12/16 06:09 07:52 08:18 WBC 24.1 H RBC 3.16 L Hgb 9.0 L Hct 29.4 L MCV MCHC RDW 16.6 H Plt Count 96 L Lymph % (Auto) [place] % (Auto) [place] # Baso # Seg Neutrophils % Seg Neuts % (Manual) 75.0 H Lymphocytes % (Manual) Monocytes % (Manual) Nucleated RBC % Seg Neutrophils # Seg Neutrophils # Man 18.1 H Lymphocytes # (Manual) Monocytes # (Manual) 1.4 H Percent Retic Haptoglobin PT INR Fibrinogen D-Dimer POC ABG pH POC ABG pCO2 POC ABG pO2 Sodium Potassium Chloride Carbon Dioxide BUN Creatinine Glucose POC Glucose 428 H 418 H Lactic Acid Calcium Phosphorus Magnesium Iron TIBC Transferrin Total Bilirubin Direct Bilirubin AST ALT Alkaline Phosphatase Lactate Dehydrogenase CK-MB (CK-2) Troponin T C-Reactive Protein Total Protein Albumin Triglycerides Cholesterol HDL Cholesterol Vitamin B12 Urine Creatinine Urine Total Protein Heparin-induced Plt Ab Hep Bs Antibody, Quant Crossmatch 12/12/16 12/12/16 12/12/16 08:18 11:31 17:03 WBC RBC Hgb Hct MCV MCHC RDW Plt Count Lymph % (Auto) [place] % (Auto) [place] # Baso # Seg Neutrophils % Seg Neuts % (Manual) Lymphocytes % (Manual) Monocytes % (Manual) Nucleated RBC % Seg Neutrophils # Seg Neutrophils # Man Lymphocytes # (Manual) Monocytes # (Manual) Percent Retic Haptoglobin PT INR Fibrinogen D-Dimer POC ABG pH POC ABG pCO2 POC ABG pO2 Sodium Potassium Chloride Carbon Dioxide 12 L D BUN 41 H Creatinine 4.5 H Glucose 369 H POC Glucose 212 H 422 H Lactic Acid Calcium Phosphorus Magnesium Iron TIBC Transferrin Total Bilirubin Direct Bilirubin AST ALT Alkaline Phosphatase Lactate Dehydrogenase CK-MB (CK-2) Troponin T C-Reactive Protein Total Protein Albumin Triglycerides Cholesterol HDL Cholesterol Vitamin B12 Urine Creatinine Urine Total Protein Heparin-induced Plt Ab Hep Bs Antibody, Quant Crossmatch 12/12/16 12/13/16 12/13/16 21:35 07:49 07:49 WBC 24.0 H RBC 2.90 L Hgb 8.3 L Hct 25.8 L MCV MCHC RDW 15.5 H Plt Count 120 L Lymph % (Auto) [place] % (Auto) [place] # Baso # Seg Neutrophils % Seg Neuts % (Manual) 89.0 H Lymphocytes % (Manual) 7.0 L Monocytes % (Manual) Nucleated RBC % Seg Neutrophils # Seg Neutrophils # Man 21.4 H Lymphocytes # (Manual) Monocytes # (Manual) Percent Retic Haptoglobin PT INR Fibrinogen D-Dimer POC ABG pH POC ABG pCO2 POC ABG pO2 Sodium Potassium 3.2 L Chloride Carbon Dioxide BUN 21 H Creatinine 3.0 H Glucose 21 L* POC Glucose 185 H Lactic Acid Calcium Phosphorus Magnesium Iron TIBC Transferrin Total Bilirubin Direct Bilirubin AST ALT Alkaline Phosphatase Lactate Dehydrogenase CK-MB (CK-2) Troponin T C-Reactive Protein Total Protein Albumin Triglycerides Cholesterol HDL Cholesterol Vitamin B12 Urine Creatinine Urine Total Protein Heparin-induced Plt Ab Hep Bs Antibody, Quant Crossmatch 12/13/16 12/13/16 12/13/16 09:57 11:02 16:52 WBC RBC Hgb Hct MCV MCHC RDW Plt Count Lymph % (Auto) [place] % (Auto) [place] # Baso # Seg Neutrophils % Seg Neuts % (Manual) Lymphocytes % (Manual) Monocytes % (Manual) Nucleated RBC % Seg Neutrophils # Seg Neutrophils # Man Lymphocytes # (Manual) Monocytes # (Manual) Percent Retic Haptoglobin PT INR Fibrinogen D-Dimer POC ABG pH POC ABG pCO2 POC ABG pO2 Sodium Potassium Chloride Carbon Dioxide BUN Creatinine Glucose POC Glucose < 40 L 231 H 312 H Lactic Acid Calcium Phosphorus Magnesium Iron TIBC Transferrin Total Bilirubin Direct Bilirubin AST ALT Alkaline Phosphatase Lactate Dehydrogenase CK-MB (CK-2) Troponin T C-Reactive Protein Total Protein Albumin Triglycerides Cholesterol HDL Cholesterol Vitamin B12 Urine Creatinine Urine Total Protein Heparin-induced Plt Ab Hep Bs Antibody, Quant Crossmatch 12/13/16 12/14/16 12/14/16 21:32 07:07 07:07 WBC 16.7 H RBC 2.80 L Hgb 7.9 L Hct 24.7 L MCV MCHC RDW 15.4 H Plt Count 131 L Lymph % (Auto) 13.1 L [place] % (Auto) [place] # 1.2 H Baso # Seg Neutrophils % 78.3 H Seg Neuts % (Manual) Lymphocytes % (Manual) Monocytes % (Manual) Nucleated RBC % Seg Neutrophils # 13.1 H Seg Neutrophils # Man Lymphocytes # (Manual) Monocytes # (Manual) Percent Retic Haptoglobin PT INR Fibrinogen D-Dimer POC ABG pH POC ABG pCO2 POC ABG pO2 Sodium Potassium 3.5 L Chloride Carbon Dioxide BUN 30 H Creatinine 4.6 H D Glucose 181 H POC Glucose 275 H Lactic Acid Calcium 7.7 L Phosphorus Magnesium Iron TIBC Transferrin Total Bilirubin Direct Bilirubin AST ALT Alkaline Phosphatase Lactate Dehydrogenase CK-MB (CK-2) Troponin T C-Reactive Protein Total Protein Albumin Triglycerides Cholesterol HDL Cholesterol Vitamin B12 Urine Creatinine Urine Total Protein Heparin-induced Plt Ab Hep Bs Antibody, Quant Crossmatch 12/14/16 12/14/16 12/14/16 07:46 11:35 16:24 WBC RBC Hgb Hct MCV MCHC RDW Plt Count Lymph % (Auto) [place] % (Auto) [place] # Baso # Seg Neutrophils % Seg Neuts % (Manual) Lymphocytes % (Manual) Monocytes % (Manual) Nucleated RBC % Seg Neutrophils # Seg Neutrophils # Man Lymphocytes # (Manual) Monocytes # (Manual) Percent Retic Haptoglobin PT INR Fibrinogen D-Dimer POC ABG pH POC ABG pCO2 POC ABG pO2 Sodium Potassium Chloride Carbon Dioxide BUN Creatinine Glucose POC Glucose 189 H 254 H 466 H Lactic Acid Calcium Phosphorus Magnesium Iron TIBC Transferrin Total Bilirubin Direct Bilirubin AST ALT Alkaline Phosphatase Lactate Dehydrogenase CK-MB (CK-2) Troponin T C-Reactive Protein Total Protein Albumin Triglycerides Cholesterol HDL Cholesterol Vitamin B12 Urine Creatinine Urine Total Protein Heparin-induced Plt Ab Hep Bs Antibody, Quant Crossmatch 12/14/16 12/15/16 12/15/16 20:57 06:27 07:46 WBC RBC Hgb Hct MCV MCHC RDW Plt Count Lymph % (Auto) [place] % (Auto) [place] # Baso # Seg Neutrophils % Seg Neuts % (Manual) Lymphocytes % (Manual) Monocytes % (Manual) Nucleated RBC % Seg Neutrophils # Seg Neutrophils # Man Lymphocytes # (Manual) Monocytes # (Manual) Percent Retic Haptoglobin PT INR Fibrinogen D-Dimer POC ABG pH POC ABG pCO2 POC ABG pO2 Sodium Potassium Chloride Carbon Dioxide BUN Creatinine Glucose POC Glucose 301 H 183 H 231 H Lactic Acid Calcium Phosphorus Magnesium Iron TIBC Transferrin Total Bilirubin Direct Bilirubin AST ALT Alkaline Phosphatase Lactate Dehydrogenase CK-MB (CK-2) Troponin T C-Reactive Protein Total Protein Albumin Triglycerides Cholesterol HDL Cholesterol Vitamin B12 Urine Creatinine Urine Total Protein Heparin-induced Plt Ab Hep Bs Antibody, Quant Crossmatch 12/15/16 12/15/16 12/15/16 11:38 15:34 20:51 WBC RBC Hgb Hct MCV MCHC RDW Plt Count Lymph % (Auto) [place] % (Auto) [place] # Baso # Seg Neutrophils % Seg Neuts % (Manual) Lymphocytes % (Manual) Monocytes % (Manual) Nucleated RBC % Seg Neutrophils # Seg Neutrophils # Man Lymphocytes # (Manual) Monocytes # (Manual) Percent Retic Haptoglobin PT INR Fibrinogen D-Dimer POC ABG pH POC ABG pCO2 POC ABG pO2 Sodium Potassium Chloride Carbon Dioxide BUN Creatinine Glucose POC Glucose 375 H 313 H 274 H Lactic Acid Calcium Phosphorus Magnesium Iron TIBC Transferrin Total Bilirubin Direct Bilirubin AST ALT Alkaline Phosphatase Lactate Dehydrogenase CK-MB (CK-2) Troponin T C-Reactive Protein Total Protein Albumin Triglycerides Cholesterol HDL Cholesterol Vitamin B12 Urine Creatinine Urine Total Protein Heparin-induced Plt Ab Hep Bs Antibody, Quant Crossmatch 12/16/16 12/16/16 12/16/16 08:26 09:12 17:13 WBC RBC Hgb Hct MCV MCHC RDW Plt Count Lymph % (Auto) [place] % (Auto) [place] # Baso # Seg Neutrophils % Seg Neuts % (Manual) Lymphocytes % (Manual) Monocytes % (Manual) Nucleated RBC % Seg Neutrophils # Seg Neutrophils # Man Lymphocytes # (Manual) Monocytes # (Manual) Percent Retic Haptoglobin PT INR Fibrinogen D-Dimer POC ABG pH POC ABG pCO2 POC ABG pO2 Sodium Potassium Chloride Carbon Dioxide BUN Creatinine Glucose POC Glucose 59 L 127 H > 500 H Lactic Acid Calcium Phosphorus Magnesium Iron TIBC Transferrin Total Bilirubin Direct Bilirubin AST ALT Alkaline Phosphatase Lactate Dehydrogenase CK-MB (CK-2) Troponin T C-Reactive Protein Total Protein Albumin Triglycerides Cholesterol HDL Cholesterol Vitamin B12 Urine Creatinine Urine Total Protein Heparin-induced Plt Ab Hep Bs Antibody, Quant Crossmatch 12/16/16 12/16/16 12/16/16 22:59 Unknown Unknown WBC 17.2 H RBC 2.83 L Hgb 7.9 L Hct 24.4 L MCV MCHC RDW Plt Count Lymph % (Auto) 9.2 L [place] % (Auto) Norman # 0.9 H Baso # Seg Neutrophils % 84.1 H Seg Neuts % (Manual) Lymphocytes % (Manual) Monocytes % (Manual) Nucleated RBC % Seg Neutrophils # 14.5 H Seg Neutrophils # Man Lymphocytes # (Manual) Monocytes # (Manual) Percent Retic Haptoglobin PT INR Fibrinogen D-Dimer POC ABG pH POC ABG pCO2 POC ABG pO2 Sodium Potassium Chloride Carbon Dioxide BUN 43 H Creatinine 5.4 H Glucose 131 H POC Glucose 320 H Lactic Acid Calcium 6.9 L Phosphorus Magnesium Iron TIBC Transferrin Total Bilirubin Direct Bilirubin AST ALT Alkaline Phosphatase Lactate Dehydrogenase CK-MB (CK-2) Troponin T C-Reactive Protein Total Protein Albumin Triglycerides Cholesterol HDL Cholesterol Vitamin B12 Urine Creatinine Urine Total Protein Heparin-induced Plt Ab Hep Bs Antibody, Quant Crossmatch 12/17/16 12/17/16 12/17/16 08:26 08:56 09:52 WBC RBC Hgb Hct MCV MCHC RDW Plt Count Lymph % (Auto) [place] % (Auto) [place] # Baso # Seg Neutrophils % Seg Neuts % (Manual) Lymphocytes % (Manual) Monocytes % (Manual) Nucleated RBC % Seg Neutrophils # Seg Neutrophils # Man Lymphocytes # (Manual) Monocytes # (Manual) Percent Retic Haptoglobin PT INR Fibrinogen D-Dimer POC ABG pH POC ABG pCO2 POC ABG pO2 Sodium Potassium Chloride Carbon Dioxide BUN Creatinine Glucose POC Glucose < 40 L 40 L 133 H Lactic Acid Calcium Phosphorus Magnesium Iron TIBC Transferrin Total Bilirubin Direct Bilirubin AST ALT Alkaline Phosphatase Lactate Dehydrogenase CK-MB (CK-2) Troponin T C-Reactive Protein Total Protein Albumin Triglycerides Cholesterol HDL Cholesterol Vitamin B12 Urine Creatinine Urine Total Protein Heparin-induced Plt Ab Hep Bs Antibody, Quant Crossmatch 12/17/16 12/17/16 12/17/16 12:51 16:08 21:00 WBC RBC Hgb Hct MCV MCHC RDW Plt Count Lymph % (Auto) [place] % (Auto) [place] # Baso # Seg Neutrophils % Seg Neuts % (Manual) Lymphocytes % (Manual) Monocytes % (Manual) Nucleated RBC % Seg Neutrophils # Seg Neutrophils # Man Lymphocytes # (Manual) Monocytes # (Manual) Percent Retic Haptoglobin PT INR Fibrinogen D-Dimer POC ABG pH POC ABG pCO2 POC ABG pO2 Sodium Potassium Chloride Carbon Dioxide BUN Creatinine Glucose POC Glucose 177 H 303 H 489 H Lactic Acid Calcium Phosphorus Magnesium Iron TIBC Transferrin Total Bilirubin Direct Bilirubin AST ALT Alkaline Phosphatase Lactate Dehydrogenase CK-MB (CK-2) Troponin T C-Reactive Protein Total Protein Albumin Triglycerides Cholesterol HDL Cholesterol Vitamin B12 Urine Creatinine Urine Total Protein Heparin-induced Plt Ab Hep Bs Antibody, Quant Crossmatch 12/17/16 12/17/16 12/18/16 Unknown Unknown 05:50 WBC 16.6 H 15.6 H RBC 2.63 L 2.58 L Hgb 7.5 L 7.3 L Hct 23.3 L 23.0 L MCV MCHC RDW 15.3 H 15.9 H Plt Count Lymph % (Auto) 7.7 L 8.7 L [place] % (Auto) Norman # 0.9 H Baso # Seg Neutrophils % 85.8 H 83.6 H Seg Neuts % (Manual) Lymphocytes % (Manual) Monocytes % (Manual) Nucleated RBC % Seg Neutrophils # 14.3 H 13.0 H Seg Neutrophils # Man Lymphocytes # (Manual) Monocytes # (Manual) Percent Retic Haptoglobin PT INR Fibrinogen D-Dimer POC ABG pH POC ABG pCO2 POC ABG pO2 Sodium Potassium 3.5 L Chloride Carbon Dioxide BUN 47 H Creatinine 5.2 H Glucose 173 H POC Glucose Lactic Acid Calcium 6.9 L Phosphorus Magnesium Iron TIBC Transferrin Total Bilirubin Direct Bilirubin AST ALT Alkaline Phosphatase Lactate Dehydrogenase CK-MB (CK-2) Troponin T C-Reactive Protein Total Protein Albumin Triglycerides Cholesterol HDL Cholesterol Vitamin B12 Urine Creatinine Urine Total Protein Heparin-induced Plt Ab Hep Bs Antibody, Quant Crossmatch 12/18/16 12/18/16 12/18/16 05:50 09:09 16:46 WBC RBC Hgb Hct MCV MCHC RDW Plt Count Lymph % (Auto) [place] % (Auto) [place] # Baso # Seg Neutrophils % Seg Neuts % (Manual) Lymphocytes % (Manual) Monocytes % (Manual) Nucleated RBC % Seg Neutrophils # Seg Neutrophils # Man Lymphocytes # (Manual) Monocytes # (Manual) Percent Retic Haptoglobin PT INR Fibrinogen D-Dimer POC ABG pH POC ABG pCO2 POC ABG pO2 Sodium Potassium Chloride Carbon Dioxide 17 L BUN 46 H Creatinine 5.0 H Glucose 252 H POC Glucose 349 H 324 H Lactic Acid Calcium 6.8 L Phosphorus Magnesium Iron TIBC Transferrin Total Bilirubin Direct Bilirubin AST ALT Alkaline Phosphatase Lactate Dehydrogenase CK-MB (CK-2) Troponin T C-Reactive Protein Total Protein Albumin Triglycerides Cholesterol HDL Cholesterol Vitamin B12 Urine Creatinine Urine Total Protein Heparin-induced Plt Ab Hep Bs Antibody, Quant Crossmatch 12/18/16 12/19/16 12/19/16 21:14 08:12 10:23 WBC 13.7 H RBC 2.60 L Hgb 7.5 L Hct 23.1 L MCV MCHC RDW 15.7 H Plt Count Lymph % (Auto) 9.1 L [place] % (Auto) Norman # 0.9 H Baso # Seg Neutrophils % 82.2 H Seg Neuts % (Manual) Lymphocytes % (Manual) Monocytes % (Manual) Nucleated RBC % Seg Neutrophils # 11.3 H Seg Neutrophils # Man Lymphocytes # (Manual) Monocytes # (Manual) Percent Retic Haptoglobin PT INR Fibrinogen D-Dimer POC ABG pH POC ABG pCO2 POC ABG pO2 Sodium Potassium Chloride Carbon Dioxide BUN Creatinine Glucose POC Glucose 316 H 464 H Lactic Acid Calcium Phosphorus Magnesium Iron TIBC Transferrin Total Bilirubin Direct Bilirubin AST ALT Alkaline Phosphatase Lactate Dehydrogenase CK-MB (CK-2) Troponin T C-Reactive Protein Total Protein Albumin Triglycerides Cholesterol HDL Cholesterol Vitamin B12 Urine Creatinine Urine Total Protein Heparin-induced Plt Ab Hep Bs Antibody, Quant Crossmatch 12/19/16 12/19/16 12/19/16 10:23 11:39 16:00 WBC RBC Hgb Hct MCV MCHC RDW Plt Count Lymph % (Auto) [place] % (Auto) [place] # Baso # Seg Neutrophils % Seg Neuts % (Manual) Lymphocytes % (Manual) Monocytes % (Manual) Nucleated RBC % Seg Neutrophils # Seg Neutrophils # Man Lymphocytes # (Manual) Monocytes # (Manual) Percent Retic Haptoglobin PT INR Fibrinogen D-Dimer POC ABG pH POC ABG pCO2 POC ABG pO2 Sodium Potassium 3.5 L Chloride Carbon Dioxide 14 L BUN 22 H Creatinine 3.2 H Glucose 446 H POC Glucose 344 H 467 H Lactic Acid Calcium 6.9 L Phosphorus 1.70 L D Magnesium Iron TIBC Transferrin Total Bilirubin Direct Bilirubin AST ALT Alkaline Phosphatase Lactate Dehydrogenase CK-MB (CK-2) Troponin T C-Reactive Protein Total Protein Albumin Triglycerides Cholesterol HDL Cholesterol Vitamin B12 Urine Creatinine Urine Total Protein Heparin-induced Plt Ab Hep Bs Antibody, Quant Crossmatch 12/19/16 12/19/16 12/19/16 16:35 16:35 21:16 WBC 19.3 H RBC 2.37 L Hgb 6.9 L Hct 21.8 L MCV MCHC RDW 16.7 H Plt Count Lymph % (Auto) [place] % (Auto) [place] # Baso # Seg Neutrophils % Seg Neuts % (Manual) Lymphocytes % (Manual) Monocytes % (Manual) Nucleated RBC % Seg Neutrophils # Seg Neutrophils # Man Lymphocytes # (Manual) Monocytes # (Manual) Percent Retic Haptoglobin PT INR Fibrinogen D-Dimer POC ABG pH POC ABG pCO2 POC ABG pO2 Sodium Potassium 3.4 L Chloride Carbon Dioxide 17 L BUN 23 H Creatinine 3.2 H Glucose 427 H POC Glucose 397 H Lactic Acid Calcium 6.9 L Phosphorus 2.40 L D Magnesium Iron TIBC Transferrin Total Bilirubin Direct Bilirubin AST ALT Alkaline Phosphatase Lactate Dehydrogenase CK-MB (CK-2) Troponin T C-Reactive Protein Total Protein Albumin Triglycerides Cholesterol HDL Cholesterol Vitamin B12 Urine Creatinine Urine Total Protein Heparin-induced Plt Ab Hep Bs Antibody, Quant Crossmatch 12/20/16 12/20/16 12/20/16 06:00 06:00 07:55 WBC 17.5 H RBC 2.54 L Hgb 7.3 L Hct 23.5 L MCV MCHC RDW 16.4 H Plt Count Lymph % (Auto) 9.0 L [place] % (Auto) Norman # 1.1 H Baso # Seg Neutrophils % 83.0 H Seg Neuts % (Manual) Lymphocytes % (Manual) Monocytes % (Manual) Nucleated RBC % Seg Neutrophils # 14.5 H Seg Neutrophils # Man Lymphocytes # (Manual) Monocytes # (Manual) Percent Retic Haptoglobin PT INR Fibrinogen D-Dimer POC ABG pH POC ABG pCO2 POC ABG pO2 Sodium 136 L Potassium Chloride 92.4 L Carbon Dioxide 15 L BUN Creatinine 2.6 H Glucose 475 H POC Glucose > 500 H Lactic Acid Calcium Phosphorus Magnesium Iron TIBC Transferrin Total Bilirubin Direct Bilirubin AST ALT Alkaline Phosphatase Lactate Dehydrogenase CK-MB (CK-2) Troponin T C-Reactive Protein Total Protein Albumin Triglycerides Cholesterol HDL Cholesterol Vitamin B12 Urine Creatinine Urine Total Protein Heparin-induced Plt Ab Hep Bs Antibody, Quant Crossmatch 12/20/16 12/20/16 12/20/16 11:21 16:01 22:33 WBC RBC Hgb Hct MCV MCHC RDW Plt Count Lymph % (Auto) [place] % (Auto) [place] # Baso # Seg Neutrophils % Seg Neuts % (Manual) Lymphocytes % (Manual) Monocytes % (Manual) Nucleated RBC % Seg Neutrophils # Seg Neutrophils # Man Lymphocytes # (Manual) Monocytes # (Manual) Percent Retic Haptoglobin PT INR Fibrinogen D-Dimer POC ABG pH POC ABG pCO2 POC ABG pO2 Sodium Potassium Chloride Carbon Dioxide BUN Creatinine Glucose POC Glucose > 500 H 446 H > 500 H Lactic Acid Calcium Phosphorus Magnesium Iron TIBC Transferrin Total Bilirubin Direct Bilirubin AST ALT Alkaline Phosphatase Lactate Dehydrogenase CK-MB (CK-2) Troponin T C-Reactive Protein Total Protein Albumin Triglycerides Cholesterol HDL Cholesterol Vitamin B12 Urine Creatinine Urine Total Protein Heparin-induced Plt Ab Hep Bs Antibody, Quant Crossmatch 12/20/16 12/20/16 12/21/16 22:37 23:00 00:48 WBC RBC Hgb Hct MCV MCHC RDW Plt Count Lymph % (Auto) [place] % (Auto) [place] # Baso # Seg Neutrophils % Seg Neuts % (Manual) Lymphocytes % (Manual) Monocytes % (Manual) Nucleated RBC % Seg Neutrophils # Seg Neutrophils # Man Lymphocytes # (Manual) Monocytes # (Manual) Percent Retic Haptoglobin PT INR Fibrinogen D-Dimer POC ABG pH POC ABG pCO2 POC ABG pO2 Sodium 128 L D Potassium Chloride 83.2 L Carbon Dioxide 11 L BUN 32 H Creatinine 3.5 H Glucose 822 H* POC Glucose > 500 H > 500 H Lactic Acid Calcium 8.2 L Phosphorus Magnesium Iron TIBC Transferrin Total Bilirubin Direct Bilirubin AST ALT Alkaline Phosphatase Lactate Dehydrogenase CK-MB (CK-2) Troponin T C-Reactive Protein Total Protein Albumin Triglycerides Cholesterol HDL Cholesterol Vitamin B12 Urine Creatinine Urine Total Protein Heparin-induced Plt Ab Hep Bs Antibody, Quant Crossmatch 12/21/16 12/21/16 12/21/16 03:17 05:00 05:00 WBC 15.7 H RBC 2.32 L Hgb 6.8 L Hct 20.6 L MCV MCHC RDW 16.3 H Plt Count Lymph % (Auto) 11.5 L [place] % (Auto) 7.4 H Norman # 1.2 H Baso # Seg Neutrophils % 78.7 H Seg Neuts % (Manual) Lymphocytes % (Manual) Monocytes % (Manual) Nucleated RBC % Seg Neutrophils # 12.4 H Seg Neutrophils # Man Lymphocytes # (Manual) Monocytes # (Manual) Percent Retic Haptoglobin PT INR Fibrinogen D-Dimer POC ABG pH POC ABG pCO2 POC ABG pO2 Sodium Potassium Chloride 95.3 L Carbon Dioxide 20 L D BUN 32 H Creatinine 3.7 H Glucose 243 H POC Glucose 428 H Lactic Acid Calcium 8.1 L Phosphorus Magnesium Iron TIBC 193.20 L Transferrin 138 L Total Bilirubin Direct Bilirubin AST ALT Alkaline Phosphatase Lactate Dehydrogenase CK-MB (CK-2) Troponin T C-Reactive Protein Total Protein Albumin Triglycerides Cholesterol HDL Cholesterol Vitamin B12 Urine Creatinine Urine Total Protein Heparin-induced Plt Ab Hep Bs Antibody, Quant Crossmatch 12/21/16 12/21/16 12/21/16 05:40 06:49 08:20 WBC RBC Hgb Hct MCV MCHC RDW Plt Count Lymph % (Auto) [place] % (Auto) [place] # Baso # Seg Neutrophils % Seg Neuts % (Manual) Lymphocytes % (Manual) Monocytes % (Manual) Nucleated RBC % Seg Neutrophils # Seg Neutrophils # Man Lymphocytes # (Manual) Monocytes # (Manual) Percent Retic Haptoglobin PT INR Fibrinogen D-Dimer POC ABG pH POC ABG pCO2 POC ABG pO2 Sodium Potassium Chloride Carbon Dioxide BUN Creatinine Glucose POC Glucose 271 H 236 H 222 H Lactic Acid Calcium Phosphorus Magnesium Iron TIBC Transferrin Total Bilirubin Direct Bilirubin AST ALT Alkaline Phosphatase Lactate Dehydrogenase CK-MB (CK-2) Troponin T C-Reactive Protein Total Protein Albumin Triglycerides Cholesterol HDL Cholesterol Vitamin B12 Urine Creatinine Urine Total Protein Heparin-induced Plt Ab Hep Bs Antibody, Quant Crossmatch 12/21/16 12/21/16 12/21/16 16:28 18:26 21:10 WBC RBC Hgb Hct MCV MCHC RDW Plt Count Lymph % (Auto) [place] % (Auto) [place] # Baso # Seg Neutrophils % Seg Neuts % (Manual) Lymphocytes % (Manual) Monocytes % (Manual) Nucleated RBC % Seg Neutrophils # Seg Neutrophils # Man Lymphocytes # (Manual) Monocytes # (Manual) Percent Retic Haptoglobin PT INR Fibrinogen D-Dimer POC ABG pH POC ABG pCO2 POC ABG pO2 Sodium Potassium Chloride Carbon Dioxide BUN Creatinine Glucose POC Glucose < 40 L 62 L 255 H Lactic Acid Calcium Phosphorus Magnesium Iron TIBC Transferrin Total Bilirubin Direct Bilirubin AST ALT Alkaline Phosphatase Lactate Dehydrogenase CK-MB (CK-2) Troponin T C-Reactive Protein Total Protein Albumin Triglycerides Cholesterol HDL Cholesterol Vitamin B12 Urine Creatinine Urine Total Protein Heparin-induced Plt Ab Hep Bs Antibody, Quant Crossmatch 12/22/16 12/22/16 12/22/16 03:38 06:45 06:45 WBC 17.4 H RBC 2.26 L Hgb 6.6 L Hct 20.5 L MCV MCHC RDW 15.7 H Plt Count Lymph % (Auto) 8.1 L [place] % (Auto) Norman # 0.9 H Baso # 0.2 H Seg Neutrophils % 84.3 H Seg Neuts % (Manual) Lymphocytes % (Manual) Monocytes % (Manual) Nucleated RBC % Seg Neutrophils # 14.6 H Seg Neutrophils # Man Lymphocytes # (Manual) Monocytes # (Manual) Percent Retic Haptoglobin PT INR Fibrinogen D-Dimer POC ABG pH POC ABG pCO2 POC ABG pO2 Sodium Potassium 3.3 L Chloride 95.5 L Carbon Dioxide 20 L BUN Creatinine 2.5 H Glucose 308 H POC Glucose 430 H Lactic Acid Calcium 8.2 L Phosphorus Magnesium Iron TIBC Transferrin Total Bilirubin Direct Bilirubin AST ALT Alkaline Phosphatase Lactate Dehydrogenase CK-MB (CK-2) Troponin T C-Reactive Protein Total Protein Albumin Triglycerides Cholesterol HDL Cholesterol Vitamin B12 Urine Creatinine Urine Total Protein Heparin-induced Plt Ab Hep Bs Antibody, Quant Crossmatch 12/22/16 12/22/16 12/22/16 08:31 12:50 15:46 WBC RBC Hgb Hct MCV MCHC RDW Plt Count Lymph % (Auto) [place] % (Auto) [place] # Baso # Seg Neutrophils % Seg Neuts % (Manual) Lymphocytes % (Manual) Monocytes % (Manual) Nucleated RBC % Seg Neutrophils # Seg Neutrophils # Man Lymphocytes # (Manual) Monocytes # (Manual) Percent Retic Haptoglobin PT INR Fibrinogen D-Dimer POC ABG pH POC ABG pCO2 POC ABG pO2 Sodium Potassium Chloride Carbon Dioxide BUN Creatinine Glucose POC Glucose 306 H 391 H Lactic Acid Calcium Phosphorus Magnesium Iron TIBC Transferrin Total Bilirubin Direct Bilirubin AST ALT Alkaline Phosphatase Lactate Dehydrogenase CK-MB (CK-2) Troponin T C-Reactive Protein Total Protein Albumin Triglycerides Cholesterol HDL Cholesterol Vitamin B12 Urine Creatinine Urine Total Protein Heparin-induced Plt Ab Hep Bs Antibody, Quant Crossmatch See Detail 12/22/16 12/22/16 12/23/16 17:13 21:45 06:42 WBC 17.9 H RBC 2.75 L Hgb 8.1 L Hct 24.8 L MCV MCHC RDW 17.1 H Plt Count Lymph % (Auto) [place] % (Auto) [place] # Baso # Seg Neutrophils % Seg Neuts % (Manual) Lymphocytes % (Manual) Monocytes % (Manual) Nucleated RBC % Seg Neutrophils # Seg Neutrophils # Man Lymphocytes # (Manual) Monocytes # (Manual) Percent Retic Haptoglobin PT INR Fibrinogen D-Dimer POC ABG pH POC ABG pCO2 POC ABG pO2 Sodium Potassium Chloride Carbon Dioxide BUN Creatinine Glucose POC Glucose > 500 H 449 H Lactic Acid Calcium Phosphorus Magnesium Iron TIBC Transferrin Total Bilirubin Direct Bilirubin AST ALT Alkaline Phosphatase Lactate Dehydrogenase CK-MB (CK-2) Troponin T C-Reactive Protein Total Protein Albumin Triglycerides Cholesterol HDL Cholesterol Vitamin B12 Urine Creatinine Urine Total Protein Heparin-induced Plt Ab Hep Bs Antibody, Quant Crossmatch 12/23/16 12/23/16 12/23/16 06:42 07:46 11:33 WBC RBC Hgb Hct MCV MCHC RDW Plt Count Lymph % (Auto) [place] % (Auto) [place] # Baso # Seg Neutrophils % Seg Neuts % (Manual) Lymphocytes % (Manual) Monocytes % (Manual) Nucleated RBC % Seg Neutrophils # Seg Neutrophils # Man Lymphocytes # (Manual) Monocytes # (Manual) Percent Retic Haptoglobin PT INR Fibrinogen D-Dimer POC ABG pH POC ABG pCO2 POC ABG pO2 Sodium Potassium 3.5 L Chloride 94.7 L Carbon Dioxide 19 L BUN 22 H Creatinine 2.9 H Glucose 401 H POC Glucose 449 H 298 H Lactic Acid Calcium 8.3 L Phosphorus Magnesium Iron TIBC Transferrin Total Bilirubin Direct Bilirubin AST ALT Alkaline Phosphatase Lactate Dehydrogenase CK-MB (CK-2) Troponin T C-Reactive Protein Total Protein Albumin Triglycerides Cholesterol HDL Cholesterol Vitamin B12 Urine Creatinine Urine Total Protein Heparin-induced Plt Ab Hep Bs Antibody, Quant Crossmatch 12/23/16 12/23/16 12/24/16 18:24 21:30 00:00 WBC RBC Hgb Hct MCV MCHC RDW Plt Count Lymph % (Auto) [place] % (Auto) [place] # Baso # Seg Neutrophils % Seg Neuts % (Manual) Lymphocytes % (Manual) Monocytes % (Manual) Nucleated RBC % Seg Neutrophils # Seg Neutrophils # Man Lymphocytes # (Manual) Monocytes # (Manual) Percent Retic Haptoglobin PT INR Fibrinogen D-Dimer POC ABG pH POC ABG pCO2 POC ABG pO2 Sodium Potassium Chloride Carbon Dioxide BUN Creatinine Glucose POC Glucose 177 H 455 H Lactic Acid Calcium Phosphorus Magnesium Iron TIBC Transferrin Total Bilirubin Direct Bilirubin AST ALT Alkaline Phosphatase Lactate Dehydrogenase CK-MB (CK-2) Troponin T C-Reactive Protein Total Protein Albumin Triglycerides Cholesterol HDL Cholesterol Vitamin B12 Urine Creatinine 239.9 H Urine Total Protein Heparin-induced Plt Ab Hep Bs Antibody, Quant Crossmatch 12/24/16 12/24/16 12/24/16 05:00 16:11 18:55 WBC RBC Hgb Hct MCV MCHC RDW Plt Count Lymph % (Auto) [place] % (Auto) [place] # Baso # Seg Neutrophils % Seg Neuts % (Manual) Lymphocytes % (Manual) Monocytes % (Manual) Nucleated RBC % Seg Neutrophils # Seg Neutrophils # Man Lymphocytes # (Manual) Monocytes # (Manual) Percent Retic Haptoglobin PT INR Fibrinogen D-Dimer POC ABG pH POC ABG pCO2 POC ABG pO2 Sodium Potassium 3.1 L Chloride 95.8 L Carbon Dioxide BUN Creatinine 1.8 H Glucose 106 H POC Glucose 175 H 148 H Lactic Acid Calcium Phosphorus Magnesium Iron TIBC Transferrin Total Bilirubin Direct Bilirubin AST ALT Alkaline Phosphatase Lactate Dehydrogenase CK-MB (CK-2) Troponin T C-Reactive Protein Total Protein Albumin Triglycerides Cholesterol HDL Cholesterol Vitamin B12 Urine Creatinine Urine Total Protein Heparin-induced Plt Ab Hep Bs Antibody, Quant Crossmatch 12/24/16 12/24/16 12/25/16 20:41 22:21 05:03 WBC RBC Hgb Hct MCV MCHC RDW Plt Count Lymph % (Auto) [place] % (Auto) [place] # Baso # Seg Neutrophils % Seg Neuts % (Manual) Lymphocytes % (Manual) Monocytes % (Manual) Nucleated RBC % Seg Neutrophils # Seg Neutrophils # Man Lymphocytes # (Manual) Monocytes # (Manual) Percent Retic Haptoglobin PT INR Fibrinogen D-Dimer POC ABG pH POC ABG pCO2 POC ABG pO2 Sodium Potassium 2.9 L* Chloride Carbon Dioxide BUN Creatinine 2.3 H Glucose 142 H POC Glucose 44 L 111 H Lactic Acid Calcium 8.0 L Phosphorus Magnesium Iron TIBC Transferrin Total Bilirubin Direct Bilirubin AST ALT Alkaline Phosphatase Lactate Dehydrogenase CK-MB (CK-2) Troponin T C-Reactive Protein Total Protein Albumin Triglycerides Cholesterol HDL Cholesterol Vitamin B12 Urine Creatinine Urine Total Protein Heparin-induced Plt Ab Hep Bs Antibody, Quant Crossmatch 12/25/16 12/25/16 12/25/16 07:30 12:08 16:43 WBC RBC Hgb Hct MCV MCHC RDW Plt Count Lymph % (Auto) [place] % (Auto) [place] # Baso # Seg Neutrophils % Seg Neuts % (Manual) Lymphocytes % (Manual) Monocytes % (Manual) Nucleated RBC % Seg Neutrophils # Seg Neutrophils # Man Lymphocytes # (Manual) Monocytes # (Manual) Percent Retic Haptoglobin PT INR Fibrinogen D-Dimer POC ABG pH POC ABG pCO2 POC ABG pO2 Sodium Potassium Chloride Carbon Dioxide BUN Creatinine Glucose POC Glucose 127 H 154 H 235 H Lactic Acid Calcium Phosphorus Magnesium Iron TIBC Transferrin Total Bilirubin Direct Bilirubin AST ALT Alkaline Phosphatase Lactate Dehydrogenase CK-MB (CK-2) Troponin T C-Reactive Protein Total Protein Albumin Triglycerides Cholesterol HDL Cholesterol Vitamin B12 Urine Creatinine Urine Total Protein Heparin-induced Plt Ab Hep Bs Antibody, Quant Crossmatch 12/25/16 12/26/16 12/26/16 23:30 07:49 10:21 WBC RBC Hgb Hct MCV MCHC RDW Plt Count Lymph % (Auto) [place] % (Auto) [place] # Baso # Seg Neutrophils % Seg Neuts % (Manual) Lymphocytes % (Manual) Monocytes % (Manual) Nucleated RBC % Seg Neutrophils # Seg Neutrophils # Man Lymphocytes # (Manual) Monocytes # (Manual) Percent Retic Haptoglobin PT INR Fibrinogen D-Dimer POC ABG pH POC ABG pCO2 POC ABG pO2 Sodium Potassium Chloride Carbon Dioxide BUN Creatinine Glucose POC Glucose 54 L 53 L 154 H Lactic Acid Calcium Phosphorus Magnesium Iron TIBC Transferrin Total Bilirubin Direct Bilirubin AST ALT Alkaline Phosphatase Lactate Dehydrogenase CK-MB (CK-2) Troponin T C-Reactive Protein Total Protein Albumin Triglycerides Cholesterol HDL Cholesterol Vitamin B12 Urine Creatinine Urine Total Protein Heparin-induced Plt Ab Hep Bs Antibody, Quant Crossmatch 12/26/16 12/26/16 12/26/16 12:19 16:14 Unknown WBC RBC Hgb Hct MCV MCHC RDW Plt Count Lymph % (Auto) [place] % (Auto) [place] # Baso # Seg Neutrophils % Seg Neuts % (Manual) Lymphocytes % (Manual) Monocytes % (Manual) Nucleated RBC % Seg Neutrophils # Seg Neutrophils # Man Lymphocytes # (Manual) Monocytes # (Manual) Percent Retic Haptoglobin PT INR Fibrinogen D-Dimer POC ABG pH POC ABG pCO2 POC ABG pO2 Sodium Potassium Chloride Carbon Dioxide BUN Creatinine 2.3 H Glucose POC Glucose 310 H Lactic Acid Calcium 8.3 L Phosphorus Magnesium 1.50 L Iron TIBC Transferrin Total Bilirubin Direct Bilirubin AST ALT Alkaline Phosphatase Lactate Dehydrogenase CK-MB (CK-2) Troponin T C-Reactive Protein Total Protein Albumin Triglycerides Cholesterol HDL Cholesterol Vitamin B12 Urine Creatinine Urine Total Protein Heparin-induced Plt Ab Hep Bs Antibody, Quant Crossmatch 12/26/16 12/26/16 12/27/16 Unknown Unknown 04:47 WBC RBC 2.95 L Hgb 9.0 L Hct 26.5 L MCV MCHC RDW 16.6 H Plt Count Lymph % (Auto) [place] % (Auto) [place] # Baso # Seg Neutrophils % Seg Neuts % (Manual) Lymphocytes % (Manual) Monocytes % (Manual) Nucleated RBC % Seg Neutrophils # Seg Neutrophils # Man Lymphocytes # (Manual) Monocytes # (Manual) Percent Retic Haptoglobin PT INR Fibrinogen D-Dimer POC ABG pH POC ABG pCO2 POC ABG pO2 Sodium Potassium Chloride Carbon Dioxide BUN Creatinine 2.3 H Glucose 157 H POC Glucose 406 H Lactic Acid Calcium 7.7 L Phosphorus Magnesium Iron TIBC Transferrin Total Bilirubin Direct Bilirubin AST ALT Alkaline Phosphatase Lactate Dehydrogenase CK-MB (CK-2) Troponin T C-Reactive Protein Total Protein Albumin Triglycerides Cholesterol HDL Cholesterol Vitamin B12 Urine Creatinine Urine Total Protein Heparin-induced Plt Ab Hep Bs Antibody, Quant Crossmatch 12/27/16 12/27/16 12/27/16 07:54 11:09 15:40 WBC RBC Hgb Hct MCV MCHC RDW Plt Count Lymph % (Auto) Norman % (Auto) Norman # Baso # Seg Neutrophils % Seg Neuts % (Manual) Lymphocytes % (Manual) Monocytes % (Manual) Nucleated RBC % Seg Neutrophils # Seg Neutrophils # Man Lymphocytes # (Manual) Monocytes # (Manual) Percent Retic Haptoglobin PT INR Fibrinogen D-Dimer POC ABG pH POC ABG pCO2 POC ABG pO2 Sodium Potassium Chloride Carbon Dioxide BUN Creatinine Glucose POC Glucose 500 H 301 H 208 H Lactic Acid Calcium Phosphorus Magnesium Iron TIBC Transferrin Total Bilirubin Direct Bilirubin AST ALT Alkaline Phosphatase Lactate Dehydrogenase CK-MB (CK-2) Troponin T C-Reactive Protein Total Protein Albumin Triglycerides Cholesterol HDL Cholesterol Vitamin B12 Urine Creatinine Urine Total Protein Heparin-induced Plt Ab Hep Bs Antibody, Quant Crossmatch 12/27/16 12/28/16 12/28/16 21:00 06:17 07:30 WBC RBC Hgb Hct MCV MCHC RDW Plt Count Lymph % (Auto) Norman % (Auto) Norman # Baso # Seg Neutrophils % Seg Neuts % (Manual) Lymphocytes % (Manual) Monocytes % (Manual) Nucleated RBC % Seg Neutrophils # Seg Neutrophils # Man Lymphocytes # (Manual) Monocytes # (Manual) Percent Retic Haptoglobin PT INR Fibrinogen D-Dimer POC ABG pH POC ABG pCO2 POC ABG pO2 Sodium Potassium 5.1 H D Chloride Carbon Dioxide 19 L BUN 24 H Creatinine 2.0 H Glucose 394 H POC Glucose 347 H 409 H Lactic Acid Calcium 7.7 L Phosphorus Magnesium Iron TIBC Transferrin Total Bilirubin Direct Bilirubin AST ALT Alkaline Phosphatase Lactate Dehydrogenase CK-MB (CK-2) Troponin T C-Reactive Protein Total Protein Albumin Triglycerides Cholesterol HDL Cholesterol Vitamin B12 Urine Creatinine Urine Total Protein Heparin-induced Plt Ab Hep Bs Antibody, Quant Crossmatch 12/28/16 11:33 WBC RBC Hgb Hct MCV MCHC RDW Plt Count Lymph % (Auto) Norman % (Auto) Norman # Baso # Seg Neutrophils % Seg Neuts % (Manual) Lymphocytes % (Manual) Monocytes % (Manual) Nucleated RBC % Seg Neutrophils # Seg Neutrophils # Man Lymphocytes # (Manual) Monocytes # (Manual) Percent Retic Haptoglobin PT INR Fibrinogen D-Dimer POC ABG pH POC ABG pCO2 POC ABG pO2 Sodium Potassium Chloride Carbon Dioxide BUN Creatinine Glucose POC Glucose 260 H Lactic Acid Calcium Phosphorus Magnesium Iron TIBC Transferrin Total Bilirubin Direct Bilirubin AST ALT Alkaline Phosphatase Lactate Dehydrogenase CK-MB (CK-2) Troponin T C-Reactive Protein Total Protein Albumin Triglycerides Cholesterol HDL Cholesterol Vitamin B12 Urine Creatinine Urine Total Protein Heparin-induced Plt Ab Hep Bs Antibody, Quant Crossmatch
[2016-12-29] MEDS ORDERED: D50W (25GM) IV ONE ×2 (04:57)
[2016-12-29 06:28] LABS: BUN/Creatinine Ratio 11.5; Calcium 7.7 mg/dL (8.4-10.2); Chloride 103.7 mmol/L (98-107); Potassium 4.3 mmol/L (3.6-5.0)
--- NOTE | 2016-12-29 09:10 | XRay Report ---
AP chest x-ray. Findings: Compared to the previous study on December 23, there has been no interval change in the right upper lobe lateral infiltrate. The right hemidiaphragm is better visualized indicating resolution of minimal right lower lobe atelectasis. Also, the left heart border is sharply defined on today's study. The bilateral central lines are unchanged in position. Impression: Stable right upper lobe infiltrate with improving right lower lobe atelectasis.
[2016-12-29] MEDS ORDERED: XYLOCAINE 1% 20 mL INFILTRATI ONE (09:32)
--- NOTE | 2016-12-29 09:39 | Progress Note ---
Assessment and Plan (1) DKA (diabetic ketoacidoses) Current Visit: Yes Status: Acute Qualifiers: Diabetes mellitus type: type 1 Diabetes mellitus complication detail: without coma Diabetes mellitus alf insulin use: D Qualified Code(s): E10.10 - Type 1 diabetes mellitus with ketoacidosis without coma Plan to address problem: on sliding scale insulin as per Primary team (2) severe renal failure Current Visit: No Status: Acute Plan to address problem: consulted vascular surgery for permcath removal, off HD for the last week with stable kidney function can be discharged from renal standpoint post permcath removal, to be followed in our office within 1-2 weeks post discharge Monitor I/O's Renally dose medications Obtain daily weights Renal diet (3) Hypertensive chronic kidney disease Current Visit: Yes Status: Acute Plan to address problem: Continue on anti-hypertensive agent (4) Anemia Current Visit: Yes Status: Acute Qualifiers: Anemia type: A Iron deficiency anemia type: I Vitamin B12 deficiency anemia type: V Folate deficiency anemia type: F Bone marrow failure anemia type: B Hemolytic anemia type: H Other causes of anemia: O Chronic kidney disease stage: C Plan to address problem: Epogen as needed Subjective Date of service: 12/29/16 Principal diagnosis: Sepsis; Pneumonia; ASHELY on dialysis; Diabetes Interval history: denies overnight events Objective - Vital Signs Vital signs: Vital Signs - 12hr 12/29/16 12/29/16 12/29/16 00:51 04:42 08:00 Temperature 98.6 F 98.0 F 98.1 F Pulse Rate [ 104 H 101 H 94 H Right Radial] Respiratory 20 20 18 Rate Blood Pressure 125/84 119/78 139/96 [Right Arm] O2 Sat by Pulse 100 100 100 Oximetry - General Appearance General appearance: well-developed, well-nourished EENT: ATNC, PERRL, mucous membranes dry Neck: no JVD, no carotid bruit Respiratory: Present: Clear to Ascultation. Absent: Rales, Ronchi Cardiology: regular, S1S2 Gastrointestinal: normoactive bowel sounds, no tenderness, no distended, no guarding Integumentary: no rash, warm and dry Neurologic: no focal deficit, no asterixis, alert and oriented x3 Musculoskeletal: other (no edema in BLE) Psychiatric: mood/affect appropriate, cooperative - Lab 12/26/16 Unknown 12/29/16 05:52 Most recent lab results Calcium 7.7 mg/dL (8.4-10.2) L 12/29/16 05:52 Phosphorus 2.60 mg/dL (2.5-4.5) 12/26/16 Unknown Magnesium 1.50 mg/dL (1.7-2.3) L 12/26/16 12:19 Urine Creatinine 239.9 mg/dL (0.1-20.0) H 12/24/16 00:00 Urine Sodium 26 mEq/L 12/04/16 11:25 Urine Total Protein 33 mg/dL (5-11.8) H 12/04/16 11:25
[2016-12-29] MEDS: LOPRESSOR PO SCH ×2 (10:13→22:23)
[2016-12-29] MEDS: BENADRYL PO PRN ×2 (10:13→22:28)
[2016-12-29] MEDS: PERCOCET 5/325 PO PRN ×2 (10:14→22:28)
[2016-12-29] MEDS: LOVENOX SUB-Q SCH (10:15)
[2016-12-29] MEDS: PEPCID PO SCH (10:15)
[2016-12-29] MEDS: NOVOLOG SUB-Q SCH ×4 (10:16→22:30)
--- NOTE | 2016-12-29 10:17 | Progress Note ---
Assessment and Plan Assessment and plan: The patient is a 46-year-old woman with history of insulin-dependent diabetes mellitus, hypertension, recent SAH and dyslipidemia who presented with DKA, AMS and STEMI with V. fib arrest requiring IV amiodarone suppression. she was intubated and subsequently extubated. she was treated with IV insulin drip for documented DKA without ketones documentation but she was acidotic on admission and pressors but subsequently weaned off and transferred to the medical floor. Uncontrolled DM -Labile -Adjust insulin to 10 units BID. Monitor FOR Hypoglycemia,CONTINUE CARB CONSISTENT DIET Severe Metabolic acidosis For dialysis today, Neprhology following Cardiac arrest with PEA arrest-->V. fib/?torsades was shocked twice - Likely from hyperkalemia, currently patient is stable. Was treated with amiodarone -Echo EF 40-45% - No recurrence Acute kidney injury secondary to ATN - Nephrology is following. HD Held and being reassessed daily. ASHELY improving. Cr 2.3 for past 3 days NOW 2.0. NO FURTHER NEED FOR DIALYSIS D/C access. Hyperkalemia- monitor, if no resolution, give kayxalate. Metabolic Acidosis, Reoccured, started on Bicitra Acute hypoxic respiratory failure. Resolved. Now extubated Malnutrition- Moderate: Nutrition consult Spesis secondary to Possible aspiration penumonitis. Inital BCX with coagulase negative staff, 1/2 bottles ?contaminate Repeat cultures, no growth. DKA: - resolved - On sliding insulin Acute metabolic encephalopathy, resolved Nstemi Type 2- Likely from Shock. Moderate protein calorie malnutrition Thrombocytopenia - Resolved Acute on chronic anemia of chronic disease, s/p total 3 units PRBC this admission - Hemoglobin is stable. will check intermittently Depression - Psych consulted and recommend outpatient mental health follow up. Disposition - Discharge in AM -DVT prophylaxis: SCDs only due to recent SAH Hospitalist Physical - Constitutional Vitals: Temp Pulse Resp BP Pulse Ox 98.1 F 94 H 18 139/96 100 12/29/16 08:00 12/29/16 08:00 12/29/16 08:00 12/29/16 08:00 12/29/16 08:00 General appearance: Present: no acute distress (resting comfortably) Results - Labs CBC & Chem 7: 12/26/16 Unknown 12/29/16 05:52 Labs: Laboratory Last Values WBC 7.9 K/mm3 (4.5-11.0) 12/26/16 Unknown RBC 2.95 M/mm3 (3.65-5.03) L 12/26/16 Unknown Hgb 9.0 gm/dl (10.1-14.3) L 12/26/16 Unknown Hct 26.5 % (30.3-42.9) L 12/26/16 Unknown MCV 90 fl (79-97) 12/26/16 Unknown MCH 30 pg (28-32) 12/26/16 Unknown MCHC 34 % (30-34) 12/26/16 Unknown RDW 16.6 % (13.2-15.2) H 12/26/16 Unknown Plt Count 230 K/mm3 (140-440) 12/26/16 Unknown Lymph % (Auto) 8.1 % (13.4-35.0) L 12/22/16 06:45 [place] % (Auto) 5.3 % (0.0-7.3) 12/22/16 06:45 Eos % (Auto) 1.4 % (0.0-4.3) 12/22/16 06:45 Baso % (Auto) 0.9 % (0.0-1.8) 12/22/16 06:45 Lymph # 1.4 K/mm3 (1.2-5.4) 12/22/16 06:45 [place] # 0.9 K/mm3 (0.0-0.8) H 12/22/16 06:45 Eos # 0.2 K/mm3 (0.0-0.4) 12/22/16 06:45 Baso # 0.2 K/mm3 (0.0-0.1) H 12/22/16 06:45 Add Manual Diff Complete 12/13/16 07:49 Total Counted 100 12/13/16 07:49 Seg Neutrophils % 84.3 % (40.0-70.0) H 12/22/16 06:45 Seg Neuts % (Manual) 89.0 % (40.0-70.0) H 12/13/16 07:49 Band Neutrophils % 1.0 % 12/13/16 07:49 Lymphocytes % (Manual) 7.0 % (13.4-35.0) L 12/13/16 07:49 Reactive Lymphs % (Man) 0 % 07/09/17 07:49 Monocytes % (Manual) 3.0 % (0.0-7.3) 12/13/16 07:49 Eosinophils % (Manual) 0 % (0.0-4.3) 12/13/16 07:49 Basophils % (Manual) 0 % (0.0-1.8) 12/13/16 07:49 Metamyelocytes % 0 % 12/13/16 07:49 Myelocytes % 0 % 12/13/16 07:49 Promyelocytes % 0 % 12/13/16 07:49 Blast Cells % 0 % 12/13/16 07:49 Nucleated RBC % Not Reportable 12/13/16 07:49 Seg Neutrophils # 14.6 K/mm3 (1.8-7.7) H 12/22/16 06:45 Seg Neutrophils # Man 21.4 K/mm3 (1.8-7.7) H 12/13/16 07:49 Band Neutrophils # 0.2 K/mm3 12/13/16 07:49 Lymphocytes # (Manual) 1.7 K/mm3 (1.2-5.4) 12/13/16 07:49 Abs React Lymphs (Man) 0.0 K/mm3 12/13/16 07:49 Monocytes # (Manual) 0.7 K/mm3 (0.0-0.8) 12/13/16 07:49 Eosinophils # (Manual) 0.0 K/mm3 (0.0-0.4) 12/13/16 07:49 Basophils # (Manual) 0.0 K/mm3 (0.0-0.1) 12/13/16 07:49 Metamyelocytes # 0.0 K/mm3 12/13/16 07:49 Myelocytes # 0.0 K/mm3 12/13/16 07:49 Promyelocytes # 0.0 K/mm3 12/13/16 07:49 Blast Cells # 0.0 K/mm3 12/13/16 07:49 WBC Morphology Not Reportable 12/13/16 07:49 Hypersegmented Neuts Not Reportable 12/13/16 07:49 Hyposegmented Neuts Not Reportable 12/13/16 07:49 Hypogranular Neuts Not Reportable 12/13/16 07:49 Smudge Cells Not Reportable 12/13/16 07:49 Toxic Granulation Not Reportable 12/13/16 07:49 Toxic Vacuolation Not Reportable 12/13/16 07:49 Dohle Bodies Not Reportable 12/13/16 07:49 Pelger-Huet Anomaly Not Reportable 12/13/16 07:49 Mary Rods Not Reportable 12/13/16 07:49 Platelet Estimate Cons 12/13/16 07:49 Clumped Platelets Not Reportable 12/13/16 07:49 Plt Clumps, EDTA Not Reportable 12/13/16 07:49 Large Platelets Rare 12/13/16 07:49 Giant Platelets Not Reportable 12/13/16 07:49 Platelet Satelliting Not Reportable 12/13/16 07:49 Plt Morphology Comment Not Reportable 12/13/16 07:49 RBC Morphology Not Reportable 12/13/16 07:49 Dimorphic RBCs Not Reportable 12/13/16 07:49 Polychromasia Not Reportable 12/13/16 07:49 Hypochromasia 1+ 12/13/16 07:49 Poikilocytosis Not Reportable 12/13/16 07:49 Anisocytosis 1+ 12/13/16 07:49 Microcytosis Not Reportable 12/13/16 07:49 Macrocytosis Not Reportable 12/13/16 07:49 Spherocytes Not Reportable 12/13/16 07:49 Pappenheimer Bodies Not Reportable 12/13/16 07:49 Sickle Cells Not Reportable 12/13/16 07:49 Target Cells Few 12/13/16 07:49 Tear Drop Cells Not Reportable 12/13/16 07:49 Ovalocytes Not Reportable 12/13/16 07:49 Helmet Cells Not Reportable 12/13/16 07:49 [place] Bodies Not Reportable 12/13/16 07:49 [place] Rings Not Reportable 12/13/16 07:49 Fiatt Cells Not Reportable 12/13/16 07:49 Bite Cells Not Reportable 12/13/16 07:49 Crenated Cell Not Reportable 12/13/16 07:49 Elliptocytes Not Reportable 12/13/16 07:49 Acanthocytes (Spur) Not Reportable 12/13/16 07:49 Rouleaux Not Reportable 12/13/16 07:49 Hemoglobin C Crystals Not Reportable 12/13/16 07:49 Schistocytes Not Reportable 12/13/16 07:49 Malaria parasites Not Reportable 12/13/16 07:49 Percent Retic 0.23 % (0.78-2.58) L 12/09/16 11:29 Michael Bodies Not Reportable 12/13/16 07:49 Haptoglobin 271 mg/dL (43-212) H 12/08/16 21:30 Hem Pathologist Commnt No 12/13/16 07:49 PT 15.3 Sec. (12.2-14.9) H 12/08/16 19:00 INR 1.22 (0.87-1.13) H 12/08/16 19:00 APTT 36.2 Sec. (24.2-36.6) 12/08/16 19:00 Fibrinogen 563 mg/dl (211-480) H 12/08/16 19:00 D-Dimer 5507.36 ng/mlDDU (0-234) H 12/08/16 19:00 Heparin Anti-Xa, Unfract Negative (Negative) 12/09/16 13:27 POC ABG pH 7.326 (7.35-7.45) L 12/09/16 12:02 POC ABG pCO2 37.7 (35-45) 12/09/16 12:02 POC ABG pO2 115 (80-105) H 12/09/16 12:02 POC ABG HCO3 19.7 12/09/16 12:02 POC ABG Total CO2 21 12/09/16 12:02 POC ABG O2 Sat 98 12/09/16 12:02 POC ABG Base Excess -6 12/09/16 12:02 FiO2 30 % 12/09/16 12:02 Sodium 142 mmol/L (137-145) 12/29/16 05:52 Potassium 4.3 mmol/L (3.6-5.0) 12/29/16 05:52 Chloride 103.7 mmol/L (98-107) 12/29/16 05:52 Carbon Dioxide 24 mmol/L (22-30) 12/29/16 05:52 Anion Gap 19 mmol/L 12/29/16 05:52 BUN 23 mg/dL (7-17) H 12/29/16 05:52 Creatinine 2.0 mg/dL (0.7-1.2) H 12/29/16 05:52 Estimated GFR 32 ml/min 12/29/16 05:52 BUN/Creatinine Ratio 11.50 % 12/29/16 05:52 Glucose 166 mg/dL (65-100) H 12/29/16 05:52 POC Glucose 115 (70-105) H 12/29/16 06:52 Lactic Acid 6.90 mmol/L (0.7-2.0) H* 12/07/16 07:30 Calcium 7.7 mg/dL (8.4-10.2) L 12/29/16 05:52 Phosphorus 2.60 mg/dL (2.5-4.5) 12/26/16 Unknown Magnesium 1.50 mg/dL (1.7-2.3) L 12/26/16 12:19 Iron 66 ug/dL (37-170) 12/21/16 05:00 TIBC 193.20 mcg/dL (250-450) L 12/21/16 05:00 Transferrin 138 mg/dl (192-382) L 12/21/16 05:00 Ferritin 321.4 ng/mL (13.0-400.0) 12/21/16 05:00 Total Bilirubin 1.40 mg/dL (0.1-1.2) H 12/07/16 21:35 Direct Bilirubin 0.9 mg/dL (0-0.2) H 12/07/16 21:35 Indirect Bilirubin 0.5 mg/dL 12/07/16 21:35 AST 94 units/L (5-40) H 12/07/16 21:35 ALT 142 units/L (7-56) H 12/07/16 21:35 Alkaline Phosphatase 249 units/L (35-129) H 12/07/16 21:35 Lactate Dehydrogenase 382 units/L (91-180) H 12/08/16 19:00 Total Creatine Kinase 123 units/L (30-135) 12/04/16 09:55 CK-MB (CK-2) 4.6 ng/mL (0.0-4.0) H 12/04/16 09:55 CK-MB (CK-2) Rel Index 3.7 (0-4) 12/04/16 09:55 Troponin T 0.140 ng/mL (0.00-0.029) H* D 12/04/16 09:55 C-Reactive Protein 39.40 mg/dL (0.00-1.30) H 12/07/16 06:00 Total Protein 4.6 g/dL (6.3-8.2) L D 12/07/16 21:35 Albumin 2.1 g/dL (3.9-5) L 12/07/16 21:35 Albumin/Globulin Ratio 0.8 % 12/07/16 21:35 Triglycerides 570 mg/dL (2-149) H 12/04/16 07:55 Cholesterol 221 mg/dL (50-199) H 12/04/16 07:55 LDL Cholesterol Direct TNR 12/04/16 07:55 HDL Cholesterol 37 mg/dL (40-59) L 12/04/16 07:55 Cholesterol/HDL Ratio 5.97 % 12/04/16 07:55 Serotonin Release Assay See scanned report 12/09/16 13:27 Vitamin B12 > 2000 pg/mL (211-911) H 12/09/16 13:27 Folate 8.10 ng/mL (7.3-26.0) 12/09/16 13:27 TSH 1.600 mlU/mL (0.270-4.200) 12/03/16 23:20 Urine Color Yellow (Yellow) 12/04/16 11:25 Urine Turbidity Slightly-cloudy (Clear) 12/04/16 11:25 Urine pH 5.0 (5.0-7.0) 12/04/16 11:25 Ur Specific Gordon 1.018 (1.003-1.030) 12/04/16 11:25 Urine Protein 30 mg/dl mg/dL (Negative) 12/04/16 11:25 Urine Glucose (UA) >=500 mg/dL (Negative) 12/04/16 11:25 Urine Ketones Tr mg/dL (Negative) 12/04/16 11:25 Urine Blood Sm (Negative) 12/04/16 11:25 Urine Nitrite Neg (Negative) 12/04/16 11:25 Urine Bilirubin Neg (Negative) 12/04/16 11:25 Urine Urobilinogen < 2.0 mg/dL (<2.0) 12/04/16 11:25 Ur Leukocyte Esterase Neg (Negative) 12/04/16 11:25 Urine WBC (Auto) 4.0 /HPF (0.0-6.0) 12/04/16 11:25 Urine RBC (Auto) 2.0 /HPF (0.0-6.0) 12/04/16 11:25 U Epithel Cells (Auto) < 1.0 /HPF (0-13.0) 12/04/16 11:25 Urine Mucus Few /HPF 12/04/16 11:25 Urine Osmolality 419 Mosm/kg 12/04/16 11:25 Urine Total Volume 200 12/24/16 00:00 Urine Creatinine 239.9 mg/dL (0.1-20.0) H 12/24/16 00:00 Height (in) 64.0 inches 12/24/16 00:00 Weight (lb) 114.0 lbs 12/24/16 00:00 Creatinine Clearance 12 12/24/16 00:00 Protein/Creatinin Ratio 1.12 12/04/16 11:25 Urine Sodium 26 mEq/L 12/04/16 11:25 Urine Total Protein 33 mg/dL (5-11.8) H 12/04/16 11:25 Urine Opiates Screen Presumptive negative 12/04/16 11:25 Urine Methadone Screen Presumptive negative 12/04/16 11:25 Ur Barbiturates Screen Presumptive negative 12/04/16 11:25 Ur Phencyclidine Scrn Presumptive negative 12/04/16 11:25 Ur Amphetamines Screen Presumptive negative 12/04/16 11:25 U Benzodiazepines Scrn Presumptive negative 12/04/16 11:25 Urine Cocaine Screen Presumptive negative 12/04/16 11:25 U Marijuana (THC) Screen Presumptive positive 12/04/16 11:25 Drugs of Abuse Note Disclamer 12/04/16 11:25 Heparin-induced Plt Ab Weak positive (Negative) H 12/09/16 13:27 UF Heparin High Dose 0 % Release 12/09/16 13:27 ADRIENNE UFH Low Dose 0.1 0 % Release 12/09/16 13:27 ADRIENNE UFH Low Dose 0.5 0 % Release 12/09/16 13:27 Hep Bs Antigen Non-reactive (Negative) 12/09/16 13:27 Hep Bs Antibody, Quant <5 mIU/mL (>=10) L 12/09/16 13:27 Hep B Core Total Ab Nonreactive (Nonreactive) 12/09/16 13:27 Hepatitis C Antibody Non-reactive (NonReactive) 12/09/16 13:27 HIV 1&2 Antibody Rapid Non react (Non React) 12/09/16 13:27 HIV P24 Antigen Non react (Non React) 12/09/16 13:27 Schistocytes Smear None seen 12/09/16 11:29 Blood Type O POSITIVE 12/22/16 15:46 Antibody Screen TNR 12/22/16 15:46 ISAIAH Antibody Screen Negative 12/22/16 15:46 Crossmatch See Detail 12/22/16 15:46
--- NOTE | 2016-12-29 10:20 | Discharge Summary ---
Providers - Providers Date of Admission: 12/04/16 01:07 Date of discharge: 01/04/17 Attending physician: ONEIDA SNYDER MD 12/06/16 09:17 Consult to Physician [CONS] Routine Consulting Provider: KEVIN GALLO Reason For Exam: vascath placement Place consult to:: Dr. Tejada Notified:: yes Phone number called:: Was contact made?: Yes If yes, spoke with:: DR. Tejada Time called:: 16:50 12/06/16 15:11 Consult to Dietitian/Nutrition [CONS] Routine Physician Instructions: Reason For Exam: Reason for Consult: Write/Manage Tube Feeding 12/06/16 18:23 Consult to PICC Line RN [CONS] Routine Reason For Exam: Hypotension Type Line:: PICC 12/07/16 08:00 Consult to Wound/ET Nurse [CONS] Urgent Reason For Exam: wound eval lefr ear pressure ulcer. 12/08/16 18:52 Consult to Physician [CONS] Routine Consulting Provider: CARMEN TOVAR Reason For Exam: Severe thrombocytopenia Place consult to:: Jacky SOMERS Notified:: yes Phone number called:: [phone] Was contact made?: Yes If yes, spoke with:: Gloria Real called:: 20:24 12/09/16 08:09 Consult to Physician [CONS] Routine Consulting Provider: GISELLE MCFARLANE Reason For Exam: Sepsis Place consult to:: Padilla SOMERS Notified:: y 12/09/16 17:38 Consult to Wound/ET Nurse [CONS] Routine Reason For Exam: wound eval sacrum 12/10/16 14:52 Speech Therapy Evaluation and Treat [CONS] Routine Reason For Exam: dyspasia 12/11/16 14:53 Consult to Physician [CONS] Routine Consulting Provider: DIEGO VILLANUEVA Reason For Exam: PEG evaluation Place consult to:: Eugenio Villanueva MD Notified:: Eugenio Villanueva 12/15/16 10:18 Physical Therapy Evaluation and Treat [CONS] Routine Comment: Reason For Exam: eval & treat 12/15/16 16:40 Consult to Mental Health [CONS] Routine Reason For Exam: Depression Place consult to:: Office Notified:: yes Phone number called:: [phone] Was contact made?: Yes If yes, spoke with:: Anamaria Time called:: 16:49 12/16/16 10:57 Consult to Physician [CONS] Routine Consulting Provider: EDWIGE DORANTES Reason For Exam: Perm-catheter placement Place consult to:: Dr. Dorantes Notified:: Grace HINDS Phone number called:: Was contact made?: Yes If yes, spoke with:: EloinaOffice Time called:: 11:18 12/17/16 09:43 Consult to Case Management [CONS] Routine Services Needed at Discharge: Other Notified:: caser Additional Physician Instructions: outpatient dialysis in [facility] 12/29/16 09:18 Consult to Physician [CONS] Routine Consulting Provider: EDWIGE DORANTES Reason For Exam: permcath removal Place consult to:: Dr. 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 Primary care physician: NUCLEAR DESIGN ENGINEER Hospitalization Condition: Stable Disposition: DC/[place]-06 HOME UNDER HOME [facility] Time spent for discharge: 35 mins Core Measure Documentation - Palliative Care Palliative Care/ Comfort Measures: Not Applicable Exam - Constitutional Vitals: Temp Pulse Resp BP Pulse Ox 98.1 F 94 H 20 139/96 100 12/29/16 08:00 12/29/16 08:00 12/29/16 10:14 12/29/16 08:00 12/29/16 08:00 Plan Activity: advance as tolerated, fall precautions Diet: diabetic, renal Special Instructions: record daily BP diary, record blood sugar diary Additional Instructions: repeat BMP in 3-5 days with PCP or Electron Microscopist. Must be compliant with medications. Follow up with: GILBERTO SOLIMAN MD [Primary Care Provider] - 3-5 Days ARMANDO MICHELLE MD [Staff Physician] - 7 Days GEORGES FLORES MD [Staff Physician] - 7 Days Prescriptions: Insulin NPH/Regular [NovoLIN 70/30] 14 unit SUB-Q BIDDIAB 30 Days Levofloxacin [Levaquin] 750 mg PO Q48H #15 tablet Metoprolol [Lopressor TAB] 25 mg PO BID #60 tablet predniSONE [Deltasone] 60 mg PO QDAY 30 Days Other Discharge Orders: Glucometer (Amb) Location: Determined By Patient Glucometer supplies[Amb] Location: Determined By Patient
--- NOTE | 2016-12-29 19:22 | Progress Note ---
Assessment and Plan Patient alert, awake. No acute respiratory distress.O2 saturation 98% on 2 litres O2.. Chest xray reported stable right upper lobe infiltrate and improving atelectasis right lower lobe.Obtaining CAT scan of chest with out contrast. 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 Patient alert, awake. Clinicaly appears improving. Management as per primary care. (2) Metabolic encephalopathy Current Visit: Yes Status: Acute Plan to address problem: Patient alert, awake, following commands. Appears encephalopathy improving. Management as per primary care. (3) Pulmonary infiltrate in right lung on chest x-ray Current Visit: Yes Status: Acute Plan to address problem: Patient off the Antibiotics. Patients chest xray stable right upper lobe infiltrate and improving right lower lobe atelectasis. Obtaining CAT scan of chest with out contrast. Subjective Date of service: 12/29/16 Principal diagnosis: Sepsis; Pneumonia; ASHELY on dialysis; Diabetes Interval history: Patient alert, awake. No acute respiratory distress.O2 saturation 98%on 2 litres O2. . Chest xray reported stable right upper lobe infiltrate and improving atelectasis right lower lobe.Obtaining CAT scan of chest with out contrast. Objective Vital Signs - 12hr 12/29/16 12/29/16 12/29/16 08:00 09:00 10:00 Temperature 98.1 F Pulse Rate 89 Pulse Rate [ 94 H 89 Right Radial] Respiratory 18 20 Rate Blood Pressure 139/96 [Right Arm] O2 Sat by Pulse 100 98 Oximetry 12/29/16 12/29/16 12/29/16 10:14 11:14 17:46 Temperature 97.3 F L Pulse Rate Pulse Rate [ 95 H Right Radial] Respiratory 20 20 18 Rate Blood Pressure 139/83 [Right Arm] O2 Sat by Pulse 98 Oximetry Constitutional: no acute distress, alert Eyes: non-icteric ENT: oropharynx moist Neck: supple, no lymphadenopathy Effort: normal Ascultation: Right: rhonchi, Bilateral: diminished breath sounds, rales (R>L lungs) Cardiovascular: regular rate and rhythm Gastrointestinal: normoactive bowel sounds, soft, non-tender, non-distended Integumentary: normal Extremities: no cyanosis, no edema, pulses normal, no ischemia or petechiae Neurologic: normal mental status, non-focal exam, pupils equal and round, motor strength normal and Psychiatric: mood appropriate, affect normal CBC and BMP: 12/26/16 Unknown 12/29/16 05:52 ABG, PT/INR, D-dimer: ABG POC ABG pH 7.326 (7.35-7.45) L 12/09/16 12:02 POC ABG pCO2 37.7 (35-45) 12/09/16 12:02 POC ABG pO2 115 (80-105) H 12/09/16 12:02 POC ABG HCO3 19.7 12/09/16 12:02 POC ABG Total CO2 21 12/09/16 12:02 POC ABG O2 Sat 98 12/09/16 12:02 PT/INR, D-dimer PT 15.3 Sec. (12.2-14.9) H 12/08/16 19:00 INR 1.22 (0.87-1.13) H 12/08/16 19:00 D-Dimer 5507.36 ng/mlDDU (0-234) H 12/08/16 19:00 Abnormal lab findings: Abnormal Labs 12/04/16 12/04/16 12/04/16 01:19 01:36 02:21 WBC RBC Hgb Hct MCV MCHC RDW Plt Count Lymph % (Auto) [place] % (Auto) [place] # Baso # Seg Neutrophils % Seg Neuts % (Manual) Lymphocytes % (Manual) Monocytes % (Manual) Nucleated RBC % Seg Neutrophils # Seg Neutrophils # Man Lymphocytes # (Manual) Monocytes # (Manual) Percent Retic Haptoglobin PT INR Fibrinogen D-Dimer POC ABG pH 6.759 L POC ABG pCO2 POC ABG pO2 437 H Sodium Potassium Chloride Carbon Dioxide BUN Creatinine Glucose POC Glucose > 500 H Lactic Acid Calcium Phosphorus 15.70 H Magnesium 4.30 H Iron TIBC Transferrin Total Bilirubin Direct Bilirubin AST ALT Alkaline Phosphatase Lactate Dehydrogenase CK-MB (CK-2) Troponin T C-Reactive Protein Total Protein Albumin Triglycerides Cholesterol HDL Cholesterol Vitamin B12 Urine Creatinine Urine Total Protein Heparin-induced Plt Ab Hep Bs Antibody, Quant Crossmatch 12/04/16 12/04/16 12/04/16 03:55 04:00 05:11 WBC RBC Hgb Hct MCV MCHC RDW Plt Count Lymph % (Auto) [place] % (Auto) [place] # Baso # Seg Neutrophils % Seg Neuts % (Manual) Lymphocytes % (Manual) Monocytes % (Manual) Nucleated RBC % Seg Neutrophils # Seg Neutrophils # Man Lymphocytes # (Manual) Monocytes # (Manual) Percent Retic Haptoglobin PT INR Fibrinogen D-Dimer POC ABG pH POC ABG pCO2 POC ABG pO2 Sodium Potassium Chloride 91.4 L Carbon Dioxide 8 L* BUN 55 H Creatinine 2.8 H Glucose 1610 H* POC Glucose > 500 H > 500 H Lactic Acid Calcium Phosphorus Magnesium Iron TIBC Transferrin Total Bilirubin Direct Bilirubin AST ALT Alkaline Phosphatase Lactate Dehydrogenase CK-MB (CK-2) Troponin T C-Reactive Protein Total Protein Albumin Triglycerides Cholesterol HDL Cholesterol Vitamin B12 Urine Creatinine Urine Total Protein Heparin-induced Plt Ab Hep Bs Antibody, Quant Crossmatch 12/04/16 12/04/16 12/04/16 05:40 05:54 06:58 WBC RBC Hgb Hct MCV MCHC RDW Plt Count Lymph % (Auto) [place] % (Auto) [place] # Baso # Seg Neutrophils % Seg Neuts % (Manual) Lymphocytes % (Manual) Monocytes % (Manual) Nucleated RBC % Seg Neutrophils # Seg Neutrophils # Man Lymphocytes # (Manual) Monocytes # (Manual) Percent Retic Haptoglobin PT INR Fibrinogen D-Dimer POC ABG pH 7.154 L POC ABG pCO2 27.5 L POC ABG pO2 111 H Sodium Potassium Chloride Carbon Dioxide BUN Creatinine Glucose POC Glucose > 500 H > 500 H Lactic Acid Calcium Phosphorus Magnesium Iron TIBC Transferrin Total Bilirubin Direct Bilirubin AST ALT Alkaline Phosphatase Lactate Dehydrogenase CK-MB (CK-2) Troponin T C-Reactive Protein Total Protein Albumin Triglycerides Cholesterol HDL Cholesterol Vitamin B12 Urine Creatinine Urine Total Protein Heparin-induced Plt Ab Hep Bs Antibody, Quant Crossmatch 12/04/16 12/04/16 12/04/16 07:49 07:55 07:55 WBC RBC Hgb Hct MCV MCHC RDW Plt Count Lymph % (Auto) [place] % (Auto) [place] # Baso # Seg Neutrophils % Seg Neuts % (Manual) Lymphocytes % (Manual) Monocytes % (Manual) Nucleated RBC % Seg Neutrophils # Seg Neutrophils # Man Lymphocytes # (Manual) Monocytes # (Manual) Percent Retic Haptoglobin PT INR Fibrinogen D-Dimer POC ABG pH POC ABG pCO2 POC ABG pO2 Sodium Potassium 3.3 L Chloride Carbon Dioxide 9 L* BUN 53 H Creatinine 2.9 H Glucose 1229 H* POC Glucose > 500 H Lactic Acid Calcium Phosphorus Magnesium Iron TIBC Transferrin Total Bilirubin Direct Bilirubin AST ALT Alkaline Phosphatase Lactate Dehydrogenase CK-MB (CK-2) Troponin T 0.111 H* D C-Reactive Protein Total Protein Albumin Triglycerides 570 H Cholesterol 221 H HDL Cholesterol 37 L Vitamin B12 Urine Creatinine Urine Total Protein Heparin-induced Plt Ab Hep Bs Antibody, Quant Crossmatch 12/04/16 12/04/16 12/04/16 07:55 09:55 09:55 WBC RBC 2.90 L Hgb 8.5 L Hct 30.2 L D MCV 105 H D MCHC 28 L RDW 19.2 H Plt Count Lymph % (Auto) [place] % (Auto) [place] # Baso # Seg Neutrophils % Seg Neuts % (Manual) Lymphocytes % (Manual) 11.0 L Monocytes % (Manual) Nucleated RBC % Seg Neutrophils # Seg Neutrophils # Man Lymphocytes # (Manual) 0.6 L Monocytes # (Manual) Percent Retic Haptoglobin PT INR Fibrinogen D-Dimer POC ABG pH POC ABG pCO2 POC ABG pO2 Sodium Potassium 3.1 L Chloride Carbon Dioxide 7 L* BUN 51 H Creatinine 3.2 H Glucose 969 H* POC Glucose Lactic Acid Calcium 10.4 H D Phosphorus Magnesium Iron TIBC Transferrin Total Bilirubin Direct Bilirubin AST ALT Alkaline Phosphatase Lactate Dehydrogenase CK-MB (CK-2) 4.6 H Troponin T 0.140 H* D C-Reactive Protein Total Protein Albumin Triglycerides Cholesterol HDL Cholesterol Vitamin B12 Urine Creatinine Urine Total Protein Heparin-induced Plt Ab Hep Bs Antibody, Quant Crossmatch 12/04/16 12/04/16 12/04/16 09:55 10:37 11:25 WBC RBC Hgb Hct MCV MCHC RDW Plt Count Lymph % (Auto) [place] % (Auto) [place] # Baso # Seg Neutrophils % Seg Neuts % (Manual) Lymphocytes % (Manual) Monocytes % (Manual) Nucleated RBC % Seg Neutrophils # Seg Neutrophils # Man Lymphocytes # (Manual) Monocytes # (Manual) Percent Retic Haptoglobin PT INR Fibrinogen D-Dimer POC ABG pH 7.215 L POC ABG pCO2 18.8 L POC ABG pO2 193 H Sodium Potassium Chloride Carbon Dioxide BUN Creatinine Glucose POC Glucose Lactic Acid Calcium Phosphorus Magnesium 3.70 H Iron TIBC Transferrin Total Bilirubin Direct Bilirubin AST ALT Alkaline Phosphatase Lactate Dehydrogenase CK-MB (CK-2) Troponin T C-Reactive Protein Total Protein Albumin Triglycerides Cholesterol HDL Cholesterol Vitamin B12 Urine Creatinine 29.5 H Urine Total Protein 33 H Heparin-induced Plt Ab Hep Bs Antibody, Quant Crossmatch 12/04/16 12/04/16 12/04/16 12:00 12:48 13:00 WBC RBC Hgb Hct MCV MCHC RDW Plt Count Lymph % (Auto) [place] % (Auto) [place] # Baso # Seg Neutrophils % Seg Neuts % (Manual) Lymphocytes % (Manual) Monocytes % (Manual) Nucleated RBC % Seg Neutrophils # Seg Neutrophils # Man Lymphocytes # (Manual) Monocytes # (Manual) Percent Retic Haptoglobin PT INR Fibrinogen D-Dimer POC ABG pH POC ABG pCO2 POC ABG pO2 Sodium 149 H 150 H Potassium 3.2 L 3.2 L Chloride 109.1 H Carbon Dioxide 8 L* 8 L* BUN 52 H 49 H Creatinine 3.4 H 3.1 H Glucose 723 H* 574 H* POC Glucose Lactic Acid 18.80 H* Calcium Phosphorus Magnesium Iron TIBC Transferrin Total Bilirubin Direct Bilirubin AST ALT Alkaline Phosphatase Lactate Dehydrogenase CK-MB (CK-2) Troponin T C-Reactive Protein Total Protein Albumin Triglycerides Cholesterol HDL Cholesterol Vitamin B12 Urine Creatinine Urine Total Protein Heparin-induced Plt Ab Hep Bs Antibody, Quant Crossmatch 12/04/16 12/04/16 12/04/16 13:01 14:41 16:06 WBC RBC Hgb Hct MCV MCHC RDW Plt Count Lymph % (Auto) [place] % (Auto) [place] # Baso # Seg Neutrophils % Seg Neuts % (Manual) Lymphocytes % (Manual) Monocytes % (Manual) Nucleated RBC % Seg Neutrophils # Seg Neutrophils # Man Lymphocytes # (Manual) Monocytes # (Manual) Percent Retic Haptoglobin PT INR Fibrinogen D-Dimer POC ABG pH POC ABG pCO2 POC ABG pO2 Sodium 151 H Potassium 3.2 L Chloride 108.1 H Carbon Dioxide 10 L BUN 49 H Creatinine 3.0 H Glucose 383 H POC Glucose 292 H Lactic Acid Calcium Phosphorus Magnesium Iron TIBC Transferrin Total Bilirubin Direct Bilirubin AST ALT Alkaline Phosphatase Lactate Dehydrogenase CK-MB (CK-2) Troponin T C-Reactive Protein 3.50 H Total Protein Albumin Triglycerides Cholesterol HDL Cholesterol Vitamin B12 Urine Creatinine Urine Total Protein Heparin-induced Plt Ab Hep Bs Antibody, Quant Crossmatch 12/04/16 12/04/16 12/04/16 17:15 17:25 18:07 WBC RBC Hgb Hct MCV MCHC RDW Plt Count Lymph % (Auto) [place] % (Auto) [place] # Baso # Seg Neutrophils % Seg Neuts % (Manual) Lymphocytes % (Manual) Monocytes % (Manual) Nucleated RBC % Seg Neutrophils # Seg Neutrophils # Man Lymphocytes # (Manual) Monocytes # (Manual) Percent Retic Haptoglobin PT INR Fibrinogen D-Dimer POC ABG pH 7.255 L POC ABG pCO2 16.9 L POC ABG pO2 169 H Sodium Potassium Chloride Carbon Dioxide BUN Creatinine Glucose POC Glucose 246 H Lactic Acid 18.50 H* Calcium Phosphorus Magnesium Iron TIBC Transferrin Total Bilirubin Direct Bilirubin AST ALT Alkaline Phosphatase Lactate Dehydrogenase CK-MB (CK-2) Troponin T C-Reactive Protein Total Protein Albumin Triglycerides Cholesterol HDL Cholesterol Vitamin B12 Urine Creatinine Urine Total Protein Heparin-induced Plt Ab Hep Bs Antibody, Quant Crossmatch 12/04/16 12/04/16 12/04/16 19:34 20:31 21:15 WBC RBC Hgb Hct MCV MCHC RDW Plt Count Lymph % (Auto) [place] % (Auto) [place] # Baso # Seg Neutrophils % Seg Neuts % (Manual) Lymphocytes % (Manual) Monocytes % (Manual) Nucleated RBC % Seg Neutrophils # Seg Neutrophils # Man Lymphocytes # (Manual) Monocytes # (Manual) Percent Retic Haptoglobin PT INR Fibrinogen D-Dimer POC ABG pH POC ABG pCO2 POC ABG pO2 Sodium Potassium Chloride Carbon Dioxide BUN Creatinine Glucose POC Glucose 189 H 126 H 139 H Lactic Acid Calcium Phosphorus Magnesium Iron TIBC Transferrin Total Bilirubin Direct Bilirubin AST ALT Alkaline Phosphatase Lactate Dehydrogenase CK-MB (CK-2) Troponin T C-Reactive Protein Total Protein Albumin Triglycerides Cholesterol HDL Cholesterol Vitamin B12 Urine Creatinine Urine Total Protein Heparin-induced Plt Ab Hep Bs Antibody, Quant Crossmatch 12/04/16 12/04/16 12/04/16 21:25 22:37 23:35 WBC RBC Hgb Hct MCV MCHC RDW Plt Count Lymph % (Auto) [place] % (Auto) [place] # Baso # Seg Neutrophils % Seg Neuts % (Manual) Lymphocytes % (Manual) Monocytes % (Manual) Nucleated RBC % Seg Neutrophils # Seg Neutrophils # Man Lymphocytes # (Manual) Monocytes # (Manual) Percent Retic Haptoglobin PT INR Fibrinogen D-Dimer POC ABG pH 7.294 L POC ABG pCO2 16.7 L POC ABG pO2 169 H Sodium Potassium Chloride Carbon Dioxide BUN Creatinine Glucose POC Glucose 131 H 106 H Lactic Acid Calcium Phosphorus Magnesium Iron TIBC Transferrin Total Bilirubin Direct Bilirubin AST ALT Alkaline Phosphatase Lactate Dehydrogenase CK-MB (CK-2) Troponin T C-Reactive Protein Total Protein Albumin Triglycerides Cholesterol HDL Cholesterol Vitamin B12 Urine Creatinine Urine Total Protein Heparin-induced Plt Ab Hep Bs Antibody, Quant Crossmatch 12/05/16 12/05/16 12/05/16 02:40 02:50 02:50 WBC RBC Hgb Hct MCV MCHC RDW Plt Count Lymph % (Auto) [place] % (Auto) [place] # Baso # Seg Neutrophils % Seg Neuts % (Manual) Lymphocytes % (Manual) Monocytes % (Manual) Nucleated RBC % Seg Neutrophils # Seg Neutrophils # Man Lymphocytes # (Manual) Monocytes # (Manual) Percent Retic Haptoglobin PT INR Fibrinogen D-Dimer POC ABG pH POC ABG pCO2 POC ABG pO2 Sodium 151 H Potassium Chloride 113.8 H Carbon Dioxide 12 L BUN 46 H Creatinine 3.2 H Glucose 165 H POC Glucose 109 H Lactic Acid 9.80 H* Calcium 8.3 L Phosphorus Magnesium Iron TIBC Transferrin Total Bilirubin Direct Bilirubin AST ALT Alkaline Phosphatase Lactate Dehydrogenase CK-MB (CK-2) Troponin T C-Reactive Protein Total Protein Albumin Triglycerides Cholesterol HDL Cholesterol Vitamin B12 Urine Creatinine Urine Total Protein Heparin-induced Plt Ab Hep Bs Antibody, Quant Crossmatch 12/05/16 12/05/16 12/05/16 04:01 04:30 04:30 WBC 19.1 H RBC 2.91 L Hgb 8.0 L Hct 25.4 L MCV MCHC RDW 17.8 H Plt Count Lymph % (Auto) [place] % (Auto) [place] # Baso # Seg Neutrophils % Seg Neuts % (Manual) 17.0 L Lymphocytes % (Manual) 7.0 L Monocytes % (Manual) Nucleated RBC % 3.0 H Seg Neutrophils # Seg Neutrophils # Man Lymphocytes # (Manual) Monocytes # (Manual) Percent Retic Haptoglobin PT INR Fibrinogen D-Dimer POC ABG pH POC ABG pCO2 POC ABG pO2 Sodium 152 H Potassium Chloride 113.5 H Carbon Dioxide 12 L BUN 47 H Creatinine 3.2 H Glucose 133 H POC Glucose 179 H Lactic Acid Calcium 8.3 L Phosphorus 1.00 L D Magnesium Iron TIBC Transferrin Total Bilirubin Direct Bilirubin AST ALT Alkaline Phosphatase Lactate Dehydrogenase CK-MB (CK-2) Troponin T C-Reactive Protein Total Protein Albumin Triglycerides Cholesterol HDL Cholesterol Vitamin B12 Urine Creatinine Urine Total Protein Heparin-induced Plt Ab Hep Bs Antibody, Quant Crossmatch 12/05/16 12/05/16 12/05/16 05:32 08:01 08:48 WBC RBC Hgb Hct MCV MCHC RDW Plt Count Lymph % (Auto) [place] % (Auto) [place] # Baso # Seg Neutrophils % Seg Neuts % (Manual) Lymphocytes % (Manual) Monocytes % (Manual) Nucleated RBC % Seg Neutrophils # Seg Neutrophils # Man Lymphocytes # (Manual) Monocytes # (Manual) Percent Retic Haptoglobin PT INR Fibrinogen D-Dimer POC ABG pH POC ABG pCO2 17.6 L POC ABG pO2 62 L Sodium Potassium Chloride Carbon Dioxide BUN Creatinine Glucose POC Glucose 126 H 130 H Lactic Acid Calcium Phosphorus Magnesium Iron TIBC Transferrin Total Bilirubin Direct Bilirubin AST ALT Alkaline Phosphatase Lactate Dehydrogenase CK-MB (CK-2) Troponin T C-Reactive Protein Total Protein Albumin Triglycerides Cholesterol HDL Cholesterol Vitamin B12 Urine Creatinine Urine Total Protein Heparin-induced Plt Ab Hep Bs Antibody, Quant Crossmatch 12/05/16 12/05/16 12/05/16 08:54 12:01 15:15 WBC RBC Hgb Hct MCV MCHC RDW Plt Count Lymph % (Auto) [place] % (Auto) [place] # Baso # Seg Neutrophils % Seg Neuts % (Manual) Lymphocytes % (Manual) Monocytes % (Manual) Nucleated RBC % Seg Neutrophils # Seg Neutrophils # Man Lymphocytes # (Manual) Monocytes # (Manual) Percent Retic Haptoglobin PT INR Fibrinogen D-Dimer POC ABG pH POC ABG pCO2 POC ABG pO2 Sodium Potassium Chloride Carbon Dioxide BUN Creatinine Glucose POC Glucose 157 H 117 H 166 H Lactic Acid Calcium Phosphorus Magnesium Iron TIBC Transferrin Total Bilirubin Direct Bilirubin AST ALT Alkaline Phosphatase Lactate Dehydrogenase CK-MB (CK-2) Troponin T C-Reactive Protein Total Protein Albumin Triglycerides Cholesterol HDL Cholesterol Vitamin B12 Urine Creatinine Urine Total Protein Heparin-induced Plt Ab Hep Bs Antibody, Quant Crossmatch 12/05/16 12/05/16 12/05/16 16:10 16:55 17:08 WBC RBC Hgb Hct MCV MCHC RDW Plt Count Lymph % (Auto) [place] % (Auto) [place] # Baso # Seg Neutrophils % Seg Neuts % (Manual) Lymphocytes % (Manual) Monocytes % (Manual) Nucleated RBC % Seg Neutrophils # Seg Neutrophils # Man Lymphocytes # (Manual) Monocytes # (Manual) Percent Retic Haptoglobin PT INR Fibrinogen D-Dimer POC ABG pH POC ABG pCO2 POC ABG pO2 Sodium Potassium Chloride Carbon Dioxide BUN Creatinine Glucose POC Glucose 178 H 169 H Lactic Acid Calcium Phosphorus 5.00 H D Magnesium Iron TIBC Transferrin Total Bilirubin Direct Bilirubin AST ALT Alkaline Phosphatase Lactate Dehydrogenase CK-MB (CK-2) Troponin T C-Reactive Protein Total Protein Albumin Triglycerides Cholesterol HDL Cholesterol Vitamin B12 Urine Creatinine Urine Total Protein Heparin-induced Plt Ab Hep Bs Antibody, Quant Crossmatch 12/05/16 12/05/16 12/05/16 18:08 18:51 20:04 WBC RBC Hgb Hct MCV MCHC RDW Plt Count Lymph % (Auto) [place] % (Auto) [place] # Baso # Seg Neutrophils % Seg Neuts % (Manual) Lymphocytes % (Manual) Monocytes % (Manual) Nucleated RBC % Seg Neutrophils # Seg Neutrophils # Man Lymphocytes # (Manual) Monocytes # (Manual) Percent Retic Haptoglobin PT INR Fibrinogen D-Dimer POC ABG pH POC ABG pCO2 POC ABG pO2 Sodium Potassium Chloride Carbon Dioxide BUN Creatinine Glucose POC Glucose 147 H 113 H 64 L Lactic Acid Calcium Phosphorus Magnesium Iron TIBC Transferrin Total Bilirubin Direct Bilirubin AST ALT Alkaline Phosphatase Lactate Dehydrogenase CK-MB (CK-2) Troponin T C-Reactive Protein Total Protein Albumin Triglycerides Cholesterol HDL Cholesterol Vitamin B12 Urine Creatinine Urine Total Protein Heparin-induced Plt Ab Hep Bs Antibody, Quant Crossmatch 12/05/16 12/05/16 12/05/16 21:34 22:08 23:19 WBC RBC Hgb Hct MCV MCHC RDW Plt Count Lymph % (Auto) [place] % (Auto) [place] # Baso # Seg Neutrophils % Seg Neuts % (Manual) Lymphocytes % (Manual) Monocytes % (Manual) Nucleated RBC % Seg Neutrophils # Seg Neutrophils # Man Lymphocytes # (Manual) Monocytes # (Manual) Percent Retic Haptoglobin PT INR Fibrinogen D-Dimer POC ABG pH 7.303 L POC ABG pCO2 18.3 L POC ABG pO2 73 L Sodium Potassium Chloride Carbon Dioxide BUN Creatinine Glucose POC Glucose 141 H 200 H Lactic Acid Calcium Phosphorus Magnesium Iron TIBC Transferrin Total Bilirubin Direct Bilirubin AST ALT Alkaline Phosphatase Lactate Dehydrogenase CK-MB (CK-2) Troponin T C-Reactive Protein Total Protein Albumin Triglycerides Cholesterol HDL Cholesterol Vitamin B12 Urine Creatinine Urine Total Protein Heparin-induced Plt Ab Hep Bs Antibody, Quant Crossmatch 07/07/2412/06/16 12/06/16 00:01 01:09 02:00 WBC RBC Hgb Hct MCV MCHC RDW Plt Count Lymph % (Auto) [place] % (Auto) [place] # Baso # Seg Neutrophils % Seg Neuts % (Manual) Lymphocytes % (Manual) Monocytes % (Manual) Nucleated RBC % Seg Neutrophils # Seg Neutrophils # Man Lymphocytes # (Manual) Monocytes # (Manual) Percent Retic Haptoglobin PT INR Fibrinogen D-Dimer POC ABG pH POC ABG pCO2 POC ABG pO2 Sodium Potassium Chloride Carbon Dioxide BUN Creatinine Glucose POC Glucose 211 H 116 H 57 L Lactic Acid Calcium Phosphorus Magnesium Iron TIBC Transferrin Total Bilirubin Direct Bilirubin AST ALT Alkaline Phosphatase Lactate Dehydrogenase CK-MB (CK-2) Troponin T C-Reactive Protein Total Protein Albumin Triglycerides Cholesterol HDL Cholesterol Vitamin B12 Urine Creatinine Urine Total Protein Heparin-induced Plt Ab Hep Bs Antibody, Quant Crossmatch 12/06/16 12/06/16 12/06/16 04:14 04:50 04:50 WBC RBC 2.68 L Hgb 7.6 L Hct 23.2 L MCV MCHC RDW 18.9 H Plt Count Lymph % (Auto) [place] % (Auto) [place] # Baso # Seg Neutrophils % Seg Neuts % (Manual) 32.0 L Lymphocytes % (Manual) Monocytes % (Manual) Nucleated RBC % 3.0 H Seg Neutrophils # Seg Neutrophils # Man Lymphocytes # (Manual) 0.9 L Monocytes # (Manual) Percent Retic Haptoglobin PT INR Fibrinogen D-Dimer POC ABG pH POC ABG pCO2 POC ABG pO2 Sodium Potassium 5.8 H D Chloride 111.5 H Carbon Dioxide 11 L BUN 52 H Creatinine 3.8 H Glucose 186 H POC Glucose 133 H Lactic Acid Calcium 6.5 L D Phosphorus 5.80 H Magnesium Iron TIBC Transferrin Total Bilirubin Direct Bilirubin AST ALT Alkaline Phosphatase Lactate Dehydrogenase CK-MB (CK-2) Troponin T C-Reactive Protein Total Protein Albumin Triglycerides Cholesterol HDL Cholesterol Vitamin B12 Urine Creatinine Urine Total Protein Heparin-induced Plt Ab Hep Bs Antibody, Quant Crossmatch 12/06/16 12/06/16 12/06/16 04:50 05:04 05:07 WBC RBC Hgb Hct MCV MCHC RDW Plt Count Lymph % (Auto) [place] % (Auto) [place] # Baso # Seg Neutrophils % Seg Neuts % (Manual) Lymphocytes % (Manual) Monocytes % (Manual) Nucleated RBC % Seg Neutrophils # Seg Neutrophils # Man Lymphocytes # (Manual) Monocytes # (Manual) Percent Retic Haptoglobin PT INR Fibrinogen D-Dimer POC ABG pH POC ABG pCO2 13.0 L POC ABG pO2 111 H Sodium Potassium Chloride Carbon Dioxide BUN Creatinine Glucose POC Glucose 127 H Lactic Acid 6.50 H* Calcium Phosphorus Magnesium Iron TIBC Transferrin Total Bilirubin Direct Bilirubin AST ALT Alkaline Phosphatase Lactate Dehydrogenase CK-MB (CK-2) Troponin T C-Reactive Protein Total Protein Albumin Triglycerides Cholesterol HDL Cholesterol Vitamin B12 Urine Creatinine Urine Total Protein Heparin-induced Plt Ab Hep Bs Antibody, Quant Crossmatch 12/06/16 12/06/16 12/06/16 06:10 06:54 07:46 WBC RBC Hgb Hct MCV MCHC RDW Plt Count Lymph % (Auto) [place] % (Auto) [place] # Baso # Seg Neutrophils % Seg Neuts % (Manual) Lymphocytes % (Manual) Monocytes % (Manual) Nucleated RBC % Seg Neutrophils # Seg Neutrophils # Man Lymphocytes # (Manual) Monocytes # (Manual) Percent Retic Haptoglobin PT INR Fibrinogen D-Dimer POC ABG pH POC ABG pCO2 POC ABG pO2 Sodium Potassium Chloride Carbon Dioxide BUN Creatinine Glucose POC Glucose 219 H 237 H 158 H Lactic Acid Calcium Phosphorus Magnesium Iron TIBC Transferrin Total Bilirubin Direct Bilirubin AST ALT Alkaline Phosphatase Lactate Dehydrogenase CK-MB (CK-2) Troponin T C-Reactive Protein Total Protein Albumin Triglycerides Cholesterol HDL Cholesterol Vitamin B12 Urine Creatinine Urine Total Protein Heparin-induced Plt Ab Hep Bs Antibody, Quant Crossmatch 12/06/16 12/06/16 12/06/16 08:55 10:27 11:58 WBC RBC Hgb Hct MCV MCHC RDW Plt Count Lymph % (Auto) [place] % (Auto) [place] # Baso # Seg Neutrophils % Seg Neuts % (Manual) Lymphocytes % (Manual) Monocytes % (Manual) Nucleated RBC % Seg Neutrophils # Seg Neutrophils # Man Lymphocytes # (Manual) Monocytes # (Manual) Percent Retic Haptoglobin PT INR Fibrinogen D-Dimer POC ABG pH POC ABG pCO2 POC ABG pO2 Sodium Potassium Chloride Carbon Dioxide BUN Creatinine Glucose POC Glucose 40 L 128 H 144 H Lactic Acid Calcium Phosphorus Magnesium Iron TIBC Transferrin Total Bilirubin Direct Bilirubin AST ALT Alkaline Phosphatase Lactate Dehydrogenase CK-MB (CK-2) Troponin T C-Reactive Protein Total Protein Albumin Triglycerides Cholesterol HDL Cholesterol Vitamin B12 Urine Creatinine Urine Total Protein Heparin-induced Plt Ab Hep Bs Antibody, Quant Crossmatch 12/06/16 12/06/16 12/06/16 18:14 19:00 19:06 WBC RBC Hgb Hct MCV MCHC RDW Plt Count Lymph % (Auto) [place] % (Auto) [place] # Baso # Seg Neutrophils % Seg Neuts % (Manual) Lymphocytes % (Manual) Monocytes % (Manual) Nucleated RBC % Seg Neutrophils # Seg Neutrophils # Man Lymphocytes # (Manual) Monocytes # (Manual) Percent Retic Haptoglobin PT INR Fibrinogen D-Dimer POC ABG pH POC ABG pCO2 POC ABG pO2 Sodium 149 H Potassium 5.6 H Chloride 115.9 H Carbon Dioxide 13 L BUN 56 H Creatinine 4.3 H Glucose 124 H POC Glucose 55 L 148 H Lactic Acid Calcium 6.0 L Phosphorus Magnesium Iron TIBC Transferrin Total Bilirubin Direct Bilirubin AST ALT Alkaline Phosphatase Lactate Dehydrogenase CK-MB (CK-2) Troponin T C-Reactive Protein Total Protein Albumin Triglycerides Cholesterol HDL Cholesterol Vitamin B12 Urine Creatinine Urine Total Protein Heparin-induced Plt Ab Hep Bs Antibody, Quant Crossmatch 12/06/16 12/06/16 12/07/16 21:24 21:51 02:32 WBC RBC Hgb Hct MCV MCHC RDW Plt Count Lymph % (Auto) [place] % (Auto) [place] # Baso # Seg Neutrophils % Seg Neuts % (Manual) Lymphocytes % (Manual) Monocytes % (Manual) Nucleated RBC % Seg Neutrophils # Seg Neutrophils # Man Lymphocytes # (Manual) Monocytes # (Manual) Percent Retic Haptoglobin PT INR Fibrinogen D-Dimer POC ABG pH POC ABG pCO2 17.0 L POC ABG pO2 142 H Sodium Potassium Chloride Carbon Dioxide BUN Creatinine Glucose POC Glucose 107 H 175 H Lactic Acid Calcium Phosphorus Magnesium Iron TIBC Transferrin Total Bilirubin Direct Bilirubin AST ALT Alkaline Phosphatase Lactate Dehydrogenase CK-MB (CK-2) Troponin T C-Reactive Protein Total Protein Albumin Triglycerides Cholesterol HDL Cholesterol Vitamin B12 Urine Creatinine Urine Total Protein Heparin-induced Plt Ab Hep Bs Antibody, Quant Crossmatch 12/07/16 12/07/16 12/07/16 05:01 05:25 06:00 WBC RBC 2.52 L Hgb 7.1 L Hct 22.1 L MCV MCHC RDW 19.3 H Plt Count 90 L Lymph % (Auto) [place] % (Auto) [place] # Baso # Seg Neutrophils % Seg Neuts % (Manual) 75.0 H Lymphocytes % (Manual) 11.0 L Monocytes % (Manual) Nucleated RBC % Seg Neutrophils # Seg Neutrophils # Man Lymphocytes # (Manual) 0.7 L Monocytes # (Manual) Percent Retic Haptoglobin PT INR Fibrinogen D-Dimer POC ABG pH 7.300 L POC ABG pCO2 17.1 L POC ABG pO2 140 H Sodium Potassium Chloride Carbon Dioxide BUN Creatinine Glucose POC Glucose 279 H Lactic Acid Calcium Phosphorus Magnesium Iron TIBC Transferrin Total Bilirubin Direct Bilirubin AST ALT Alkaline Phosphatase Lactate Dehydrogenase CK-MB (CK-2) Troponin T C-Reactive Protein Total Protein Albumin Triglycerides Cholesterol HDL Cholesterol Vitamin B12 Urine Creatinine Urine Total Protein Heparin-induced Plt Ab Hep Bs Antibody, Quant Crossmatch 12/07/16 12/07/16 12/07/16 06:00 06:00 07:30 WBC RBC Hgb Hct MCV MCHC RDW Plt Count Lymph % (Auto) [place] % (Auto) [place] # Baso # Seg Neutrophils % Seg Neuts % (Manual) Lymphocytes % (Manual) Monocytes % (Manual) Nucleated RBC % Seg Neutrophils # Seg Neutrophils # Man Lymphocytes # (Manual) Monocytes # (Manual) Percent Retic Haptoglobin PT INR Fibrinogen D-Dimer POC ABG pH POC ABG pCO2 POC ABG pO2 Sodium Potassium Chloride Carbon Dioxide BUN Creatinine Glucose POC Glucose Lactic Acid 6.90 H* Calcium Phosphorus 6.80 H Magnesium Iron TIBC Transferrin Total Bilirubin Direct Bilirubin AST ALT Alkaline Phosphatase Lactate Dehydrogenase CK-MB (CK-2) Troponin T C-Reactive Protein 39.40 H Total Protein Albumin Triglycerides Cholesterol HDL Cholesterol Vitamin B12 Urine Creatinine Urine Total Protein Heparin-induced Plt Ab Hep Bs Antibody, Quant Crossmatch 12/07/16 12/07/16 12/07/16 08:40 10:53 14:31 WBC RBC Hgb Hct MCV MCHC RDW Plt Count Lymph % (Auto) [place] % (Auto) [place] # Baso # Seg Neutrophils % Seg Neuts % (Manual) Lymphocytes % (Manual) Monocytes % (Manual) Nucleated RBC % Seg Neutrophils # Seg Neutrophils # Man Lymphocytes # (Manual) Monocytes # (Manual) Percent Retic Haptoglobin PT INR Fibrinogen D-Dimer POC ABG pH POC ABG pCO2 POC ABG pO2 Sodium Potassium 7.0 H* D Chloride 112.4 H Carbon Dioxide 8 L* BUN 61 H Creatinine 5.1 H Glucose 213 H POC Glucose 353 H 52 L Lactic Acid Calcium 5.8 L* Phosphorus Magnesium Iron TIBC Transferrin Total Bilirubin Direct Bilirubin AST ALT Alkaline Phosphatase Lactate Dehydrogenase CK-MB (CK-2) Troponin T C-Reactive Protein Total Protein Albumin Triglycerides Cholesterol HDL Cholesterol Vitamin B12 Urine Creatinine Urine Total Protein Heparin-induced Plt Ab Hep Bs Antibody, Quant Crossmatch 12/07/16 12/07/16 12/07/16 14:45 15:33 16:22 WBC RBC Hgb Hct MCV MCHC RDW Plt Count Lymph % (Auto) [place] % (Auto) [place] # Baso # Seg Neutrophils % Seg Neuts % (Manual) Lymphocytes % (Manual) Monocytes % (Manual) Nucleated RBC % Seg Neutrophils # Seg Neutrophils # Man Lymphocytes # (Manual) Monocytes # (Manual) Percent Retic Haptoglobin PT 17.5 H INR 1.44 H Fibrinogen D-Dimer POC ABG pH POC ABG pCO2 POC ABG pO2 Sodium Potassium Chloride Carbon Dioxide BUN Creatinine Glucose POC Glucose < 40 L 118 H Lactic Acid Calcium Phosphorus Magnesium Iron TIBC Transferrin Total Bilirubin Direct Bilirubin AST ALT Alkaline Phosphatase Lactate Dehydrogenase CK-MB (CK-2) Troponin T C-Reactive Protein Total Protein Albumin Triglycerides Cholesterol HDL Cholesterol Vitamin B12 Urine Creatinine Urine Total Protein Heparin-induced Plt Ab Hep Bs Antibody, Quant Crossmatch 12/07/16 12/07/16 12/07/16 21:35 21:35 21:58 WBC RBC Hgb Hct MCV MCHC RDW Plt Count Lymph % (Auto) [place] % (Auto) [place] # Baso # Seg Neutrophils % Seg Neuts % (Manual) Lymphocytes % (Manual) Monocytes % (Manual) Nucleated RBC % Seg Neutrophils # Seg Neutrophils # Man Lymphocytes # (Manual) Monocytes # (Manual) Percent Retic Haptoglobin PT INR Fibrinogen D-Dimer POC ABG pH POC ABG pCO2 POC ABG pO2 Sodium 150 H Potassium 3.3 L D Chloride 111.4 H Carbon Dioxide 21 L D BUN 22 H Creatinine 2.6 H Glucose 23 L* POC Glucose < 40 L Lactic Acid Calcium Phosphorus Magnesium Iron TIBC Transferrin Total Bilirubin 1.40 H Direct Bilirubin 0.9 H AST 94 H ALT 142 H Alkaline Phosphatase 249 H Lactate Dehydrogenase CK-MB (CK-2) Troponin T C-Reactive Protein Total Protein 4.6 L D Albumin 2.1 L Triglycerides Cholesterol HDL Cholesterol Vitamin B12 Urine Creatinine Urine Total Protein Heparin-induced Plt Ab Hep Bs Antibody, Quant Crossmatch 12/07/16 12/08/16 12/08/16 23:31 04:43 04:50 WBC RBC 2.35 L Hgb 6.6 L Hct 20.1 L MCV MCHC RDW 17.8 H Plt Count 48 L Lymph % (Auto) [place] % (Auto) [place] # Baso # Seg Neutrophils % Seg Neuts % (Manual) Lymphocytes % (Manual) Monocytes % (Manual) Nucleated RBC % Seg Neutrophils # Seg Neutrophils # Man Lymphocytes # (Manual) 0.9 L Monocytes # (Manual) Percent Retic Haptoglobin PT INR Fibrinogen D-Dimer POC ABG pH 7.586 H POC ABG pCO2 17.7 L POC ABG pO2 150 H Sodium Potassium Chloride Carbon Dioxide BUN Creatinine Glucose POC Glucose 42 L Lactic Acid Calcium Phosphorus Magnesium Iron TIBC Transferrin Total Bilirubin Direct Bilirubin AST ALT Alkaline Phosphatase Lactate Dehydrogenase CK-MB (CK-2) Troponin T C-Reactive Protein Total Protein Albumin Triglycerides Cholesterol HDL Cholesterol Vitamin B12 Urine Creatinine Urine Total Protein Heparin-induced Plt Ab Hep Bs Antibody, Quant Crossmatch 12/08/16 12/08/16 12/08/16 04:50 04:59 06:54 WBC RBC Hgb Hct MCV MCHC RDW Plt Count Lymph % (Auto) [place] % (Auto) [place] # Baso # Seg Neutrophils % Seg Neuts % (Manual) Lymphocytes % (Manual) Monocytes % (Manual) Nucleated RBC % Seg Neutrophils # Seg Neutrophils # Man Lymphocytes # (Manual) Monocytes # (Manual) Percent Retic Haptoglobin PT INR Fibrinogen D-Dimer POC ABG pH POC ABG pCO2 POC ABG pO2 Sodium 149 H Potassium 3.2 L Chloride 111.8 H Carbon Dioxide 17 L BUN 26 H Creatinine 3.4 H Glucose 163 H POC Glucose 204 H 203 H Lactic Acid Calcium 7.7 L Phosphorus 2.40 L D Magnesium Iron TIBC Transferrin Total Bilirubin Direct Bilirubin AST ALT Alkaline Phosphatase Lactate Dehydrogenase CK-MB (CK-2) Troponin T C-Reactive Protein Total Protein Albumin Triglycerides Cholesterol HDL Cholesterol Vitamin B12 Urine Creatinine Urine Total Protein Heparin-induced Plt Ab Hep Bs Antibody, Quant Crossmatch 12/08/16 12/08/16 12/08/16 08:04 08:46 08:46 WBC RBC Hgb Hct MCV MCHC RDW Plt Count Lymph % (Auto) [place] % (Auto) [place] # Baso # Seg Neutrophils % Seg Neuts % (Manual) Lymphocytes % (Manual) Monocytes % (Manual) Nucleated RBC % Seg Neutrophils # Seg Neutrophils # Man Lymphocytes # (Manual) Monocytes # (Manual) Percent Retic Haptoglobin PT INR Fibrinogen D-Dimer POC ABG pH POC ABG pCO2 POC ABG pO2 Sodium 147 H Potassium 2.9 L* Chloride 110.6 H Carbon Dioxide 17 L BUN 28 H Creatinine 3.6 H Glucose 127 H POC Glucose 205 H Lactic Acid Calcium 7.3 L Phosphorus Magnesium Iron TIBC Transferrin Total Bilirubin Direct Bilirubin AST ALT Alkaline Phosphatase Lactate Dehydrogenase CK-MB (CK-2) Troponin T C-Reactive Protein Total Protein Albumin Triglycerides Cholesterol HDL Cholesterol Vitamin B12 Urine Creatinine Urine Total Protein Heparin-induced Plt Ab Hep Bs Antibody, Quant Crossmatch See Detail 12/08/16 12/08/16 12/08/16 12:36 19:00 19:00 WBC RBC Hgb Hct MCV MCHC RDW Plt Count Lymph % (Auto) [place] % (Auto) [place] # Baso # Seg Neutrophils % Seg Neuts % (Manual) Lymphocytes % (Manual) Monocytes % (Manual) Nucleated RBC % Seg Neutrophils # Seg Neutrophils # Man Lymphocytes # (Manual) Monocytes # (Manual) Percent Retic Haptoglobin PT 15.3 H INR 1.22 H Fibrinogen 563 H D-Dimer 5507.36 H POC ABG pH POC ABG pCO2 POC ABG pO2 Sodium Potassium Chloride Carbon Dioxide 21 L BUN Creatinine 1.7 H D Glucose 155 H POC Glucose 181 H Lactic Acid Calcium Phosphorus Magnesium Iron TIBC Transferrin Total Bilirubin Direct Bilirubin AST ALT Alkaline Phosphatase Lactate Dehydrogenase CK-MB (CK-2) Troponin T C-Reactive Protein Total Protein Albumin Triglycerides Cholesterol HDL Cholesterol Vitamin B12 Urine Creatinine Urine Total Protein Heparin-induced Plt Ab Hep Bs Antibody, Quant Crossmatch 12/08/16 12/08/16 12/08/16 19:00 19:00 21:30 WBC RBC 2.76 L Hgb 7.8 L Hct 23.7 L MCV MCHC RDW 17.0 H Plt Count 38 L Lymph % (Auto) [place] % (Auto) [place] # Baso # Seg Neutrophils % Seg Neuts % (Manual) Lymphocytes % (Manual) Monocytes % (Manual) Nucleated RBC % Seg Neutrophils # Seg Neutrophils # Man Lymphocytes # (Manual) Monocytes # (Manual) Percent Retic Haptoglobin 271 H PT INR Fibrinogen D-Dimer POC ABG pH POC ABG pCO2 POC ABG pO2 Sodium Potassium Chloride Carbon Dioxide BUN Creatinine Glucose POC Glucose Lactic Acid Calcium Phosphorus Magnesium Iron TIBC Transferrin Total Bilirubin Direct Bilirubin AST ALT Alkaline Phosphatase Lactate Dehydrogenase 382 H CK-MB (CK-2) Troponin T C-Reactive Protein Total Protein Albumin Triglycerides Cholesterol HDL Cholesterol Vitamin B12 Urine Creatinine Urine Total Protein Heparin-induced Plt Ab Hep Bs Antibody, Quant Crossmatch 12/08/16 12/08/16 12/09/16 23:32 23:44 05:22 WBC RBC Hgb Hct MCV MCHC RDW Plt Count Lymph % (Auto) [place] % (Auto) [place] # Baso # Seg Neutrophils % Seg Neuts % (Manual) Lymphocytes % (Manual) Monocytes % (Manual) Nucleated RBC % Seg Neutrophils # Seg Neutrophils # Man Lymphocytes # (Manual) Monocytes # (Manual) Percent Retic Haptoglobin PT INR Fibrinogen D-Dimer POC ABG pH 7.498 H POC ABG pCO2 25.2 L POC ABG pO2 137 H Sodium Potassium Chloride Carbon Dioxide BUN Creatinine Glucose POC Glucose 311 H 113 H Lactic Acid Calcium Phosphorus Magnesium Iron TIBC Transferrin Total Bilirubin Direct Bilirubin AST ALT Alkaline Phosphatase Lactate Dehydrogenase CK-MB (CK-2) Troponin T C-Reactive Protein Total Protein Albumin Triglycerides Cholesterol HDL Cholesterol Vitamin B12 Urine Creatinine Urine Total Protein Heparin-induced Plt Ab Hep Bs Antibody, Quant Crossmatch 12/09/16 12/09/16 12/09/16 06:00 11:29 11:59 WBC RBC Hgb Hct MCV MCHC RDW Plt Count Lymph % (Auto) [place] % (Auto) [place] # Baso # Seg Neutrophils % Seg Neuts % (Manual) Lymphocytes % (Manual) Monocytes % (Manual) Nucleated RBC % Seg Neutrophils # Seg Neutrophils # Man Lymphocytes # (Manual) Monocytes # (Manual) Percent Retic 0.23 L Haptoglobin PT INR Fibrinogen D-Dimer POC ABG pH POC ABG pCO2 POC ABG pO2 Sodium Potassium Chloride 110.2 H Carbon Dioxide 18 L BUN 19 H Creatinine 2.5 H Glucose 105 H POC Glucose 254 H Lactic Acid Calcium Phosphorus 2.00 L Magnesium Iron TIBC Transferrin Total Bilirubin Direct Bilirubin AST ALT Alkaline Phosphatase Lactate Dehydrogenase CK-MB (CK-2) Troponin T C-Reactive Protein Total Protein Albumin Triglycerides Cholesterol HDL Cholesterol Vitamin B12 Urine Creatinine Urine Total Protein Heparin-induced Plt Ab Hep Bs Antibody, Quant Crossmatch 12/09/16 12/09/16 12/09/16 12:02 13:27 13:27 WBC RBC Hgb Hct MCV MCHC RDW Plt Count Lymph % (Auto) [place] % (Auto) [place] # Baso # Seg Neutrophils % Seg Neuts % (Manual) Lymphocytes % (Manual) Monocytes % (Manual) Nucleated RBC % Seg Neutrophils # Seg Neutrophils # Man Lymphocytes # (Manual) Monocytes # (Manual) Percent Retic Haptoglobin PT INR Fibrinogen D-Dimer POC ABG pH 7.326 L POC ABG pCO2 POC ABG pO2 115 H Sodium Potassium Chloride Carbon Dioxide BUN Creatinine Glucose POC Glucose Lactic Acid Calcium Phosphorus Magnesium Iron 15 L TIBC 134 L Transferrin Total Bilirubin Direct Bilirubin AST ALT Alkaline Phosphatase Lactate Dehydrogenase CK-MB (CK-2) Troponin T C-Reactive Protein Total Protein Albumin Triglycerides Cholesterol HDL Cholesterol Vitamin B12 > 2000 H Urine Creatinine Urine Total Protein Heparin-induced Plt Ab Hep Bs Antibody, Quant Crossmatch 12/09/16 12/09/16 12/09/16 13:27 13:27 16:28 WBC RBC Hgb Hct MCV MCHC RDW Plt Count Lymph % (Auto) [place] % (Auto) [place] # Baso # Seg Neutrophils % Seg Neuts % (Manual) Lymphocytes % (Manual) Monocytes % (Manual) Nucleated RBC % Seg Neutrophils # Seg Neutrophils # Man Lymphocytes # (Manual) Monocytes # (Manual) Percent Retic Haptoglobin PT INR Fibrinogen D-Dimer POC ABG pH POC ABG pCO2 POC ABG pO2 Sodium Potassium Chloride Carbon Dioxide BUN Creatinine Glucose POC Glucose 199 H Lactic Acid Calcium Phosphorus Magnesium Iron TIBC Transferrin Total Bilirubin Direct Bilirubin AST ALT Alkaline Phosphatase Lactate Dehydrogenase CK-MB (CK-2) Troponin T C-Reactive Protein Total Protein Albumin Triglycerides Cholesterol HDL Cholesterol Vitamin B12 Urine Creatinine Urine Total Protein Heparin-induced Plt Ab Weak positive H Hep Bs Antibody, Quant <5 L Crossmatch 12/09/16 12/09/16 12/10/16 23:27 Unknown 05:36 WBC 11.3 H RBC 2.92 L Hgb 8.4 L Hct 25.3 L MCV MCHC RDW 16.9 H Plt Count 31 L Lymph % (Auto) [place] % (Auto) [place] # Baso # Seg Neutrophils % Seg Neuts % (Manual) Lymphocytes % (Manual) Monocytes % (Manual) Nucleated RBC % Seg Neutrophils # Seg Neutrophils # Man Lymphocytes # (Manual) Monocytes # (Manual) Percent Retic Haptoglobin PT INR Fibrinogen D-Dimer POC ABG pH POC ABG pCO2 POC ABG pO2 Sodium Potassium Chloride Carbon Dioxide BUN Creatinine Glucose POC Glucose 247 H 248 H Lactic Acid Calcium Phosphorus Magnesium Iron TIBC Transferrin Total Bilirubin Direct Bilirubin AST ALT Alkaline Phosphatase Lactate Dehydrogenase CK-MB (CK-2) Troponin T C-Reactive Protein Total Protein Albumin Triglycerides Cholesterol HDL Cholesterol Vitamin B12 Urine Creatinine Urine Total Protein Heparin-induced Plt Ab Hep Bs Antibody, Quant Crossmatch 12/10/16 12/10/16 12/10/16 09:55 09:55 11:49 WBC 21.2 H RBC 3.37 L Hgb 9.6 L Hct 29.5 L MCV MCHC RDW 16.3 H Plt Count 102 L D Lymph % (Auto) [place] % (Auto) [place] # Baso # Seg Neutrophils % Seg Neuts % (Manual) Lymphocytes % (Manual) Monocytes % (Manual) Nucleated RBC % Seg Neutrophils # Seg Neutrophils # Man Lymphocytes # (Manual) Monocytes # (Manual) Percent Retic Haptoglobin PT INR Fibrinogen D-Dimer POC ABG pH POC ABG pCO2 POC ABG pO2 Sodium Potassium Chloride 107.4 H Carbon Dioxide 21 L BUN 37 H Creatinine 4.2 H D Glucose 174 H POC Glucose 265 H Lactic Acid Calcium Phosphorus Magnesium Iron TIBC Transferrin Total Bilirubin Direct Bilirubin AST ALT Alkaline Phosphatase Lactate Dehydrogenase CK-MB (CK-2) Troponin T C-Reactive Protein Total Protein Albumin Triglycerides Cholesterol HDL Cholesterol Vitamin B12 Urine Creatinine Urine Total Protein Heparin-induced Plt Ab Hep Bs Antibody, Quant Crossmatch 12/10/16 12/10/16 12/11/16 17:56 23:44 04:30 WBC 23.5 H RBC 3.46 L Hgb 9.7 L Hct 30.1 L MCV MCHC RDW 16.4 H Plt Count 115 L Lymph % (Auto) [place] % (Auto) [place] # Baso # Seg Neutrophils % Seg Neuts % (Manual) 84.0 H Lymphocytes % (Manual) 5.0 L Monocytes % (Manual) 10.0 H Nucleated RBC % 1.0 H Seg Neutrophils # Seg Neutrophils # Man 19.7 H Lymphocytes # (Manual) Monocytes # (Manual) 2.4 H Percent Retic Haptoglobin PT INR Fibrinogen D-Dimer POC ABG pH POC ABG pCO2 POC ABG pO2 Sodium Potassium Chloride Carbon Dioxide BUN Creatinine Glucose POC Glucose 118 H 378 H Lactic Acid Calcium Phosphorus Magnesium Iron TIBC Transferrin Total Bilirubin Direct Bilirubin AST ALT Alkaline Phosphatase Lactate Dehydrogenase CK-MB (CK-2) Troponin T C-Reactive Protein Total Protein Albumin Triglycerides Cholesterol HDL Cholesterol Vitamin B12 Urine Creatinine Urine Total Protein Heparin-induced Plt Ab Hep Bs Antibody, Quant Crossmatch 12/11/16 12/11/16 12/11/16 04:30 05:33 12:48 WBC RBC Hgb Hct MCV MCHC RDW Plt Count Lymph % (Auto) [place] % (Auto) [place] # Baso # Seg Neutrophils % Seg Neuts % (Manual) Lymphocytes % (Manual) Monocytes % (Manual) Nucleated RBC % Seg Neutrophils # Seg Neutrophils # Man Lymphocytes # (Manual) Monocytes # (Manual) Percent Retic Haptoglobin PT INR Fibrinogen D-Dimer POC ABG pH POC ABG pCO2 POC ABG pO2 Sodium Potassium Chloride Carbon Dioxide 21 L BUN 50 H Creatinine 4.8 H Glucose 303 H POC Glucose 335 H 325 H Lactic Acid Calcium 8.2 L Phosphorus Magnesium Iron TIBC Transferrin Total Bilirubin Direct Bilirubin AST ALT Alkaline Phosphatase Lactate Dehydrogenase CK-MB (CK-2) Troponin T C-Reactive Protein Total Protein Albumin Triglycerides Cholesterol HDL Cholesterol Vitamin B12 Urine Creatinine Urine Total Protein Heparin-induced Plt Ab Hep Bs Antibody, Quant Crossmatch 12/11/16 12/11/16 12/12/16 17:49 21:16 00:49 WBC RBC Hgb Hct MCV MCHC RDW Plt Count Lymph % (Auto) [place] % (Auto) [place] # Baso # Seg Neutrophils % Seg Neuts % (Manual) Lymphocytes % (Manual) Monocytes % (Manual) Nucleated RBC % Seg Neutrophils # Seg Neutrophils # Man Lymphocytes # (Manual) Monocytes # (Manual) Percent Retic Haptoglobin PT INR Fibrinogen D-Dimer POC ABG pH POC ABG pCO2 POC ABG pO2 Sodium Potassium Chloride Carbon Dioxide BUN Creatinine Glucose POC Glucose 368 H 162 H 225 H Lactic Acid Calcium Phosphorus Magnesium Iron TIBC Transferrin Total Bilirubin Direct Bilirubin AST ALT Alkaline Phosphatase Lactate Dehydrogenase CK-MB (CK-2) Troponin T C-Reactive Protein Total Protein Albumin Triglycerides Cholesterol HDL Cholesterol Vitamin B12 Urine Creatinine Urine Total Protein Heparin-induced Plt Ab Hep Bs Antibody, Quant Crossmatch 12/12/16 12/12/16 12/12/16 06:09 07:52 08:18 WBC 24.1 H RBC 3.16 L Hgb 9.0 L Hct 29.4 L MCV MCHC RDW 16.6 H Plt Count 96 L Lymph % (Auto) [place] % (Auto) [place] # Baso # Seg Neutrophils % Seg Neuts % (Manual) 75.0 H Lymphocytes % (Manual) Monocytes % (Manual) Nucleated RBC % Seg Neutrophils # Seg Neutrophils # Man 18.1 H Lymphocytes # (Manual) Monocytes # (Manual) 1.4 H Percent Retic Haptoglobin PT INR Fibrinogen D-Dimer POC ABG pH POC ABG pCO2 POC ABG pO2 Sodium Potassium Chloride Carbon Dioxide BUN Creatinine Glucose POC Glucose 428 H 418 H Lactic Acid Calcium Phosphorus Magnesium Iron TIBC Transferrin Total Bilirubin Direct Bilirubin AST ALT Alkaline Phosphatase Lactate Dehydrogenase CK-MB (CK-2) Troponin T C-Reactive Protein Total Protein Albumin Triglycerides Cholesterol HDL Cholesterol Vitamin B12 Urine Creatinine Urine Total Protein Heparin-induced Plt Ab Hep Bs Antibody, Quant Crossmatch 12/12/16 12/12/16 12/12/16 08:18 11:31 17:03 WBC RBC Hgb Hct MCV MCHC RDW Plt Count Lymph % (Auto) [place] % (Auto) [place] # Baso # Seg Neutrophils % Seg Neuts % (Manual) Lymphocytes % (Manual) Monocytes % (Manual) Nucleated RBC % Seg Neutrophils # Seg Neutrophils # Man Lymphocytes # (Manual) Monocytes # (Manual) Percent Retic Haptoglobin PT INR Fibrinogen D-Dimer POC ABG pH POC ABG pCO2 POC ABG pO2 Sodium Potassium Chloride Carbon Dioxide 12 L D BUN 41 H Creatinine 4.5 H Glucose 369 H POC Glucose 212 H 422 H Lactic Acid Calcium Phosphorus Magnesium Iron TIBC Transferrin Total Bilirubin Direct Bilirubin AST ALT Alkaline Phosphatase Lactate Dehydrogenase CK-MB (CK-2) Troponin T C-Reactive Protein Total Protein Albumin Triglycerides Cholesterol HDL Cholesterol Vitamin B12 Urine Creatinine Urine Total Protein Heparin-induced Plt Ab Hep Bs Antibody, Quant Crossmatch 12/12/16 12/13/16 12/13/16 21:35 07:49 07:49 WBC 24.0 H RBC 2.90 L Hgb 8.3 L Hct 25.8 L MCV MCHC RDW 15.5 H Plt Count 120 L Lymph % (Auto) [place] % (Auto) [place] # Baso # Seg Neutrophils % Seg Neuts % (Manual) 89.0 H Lymphocytes % (Manual) 7.0 L Monocytes % (Manual) Nucleated RBC % Seg Neutrophils # Seg Neutrophils # Man 21.4 H Lymphocytes # (Manual) Monocytes # (Manual) Percent Retic Haptoglobin PT INR Fibrinogen D-Dimer POC ABG pH POC ABG pCO2 POC ABG pO2 Sodium Potassium 3.2 L Chloride Carbon Dioxide BUN 21 H Creatinine 3.0 H Glucose 21 L* POC Glucose 185 H Lactic Acid Calcium Phosphorus Magnesium Iron TIBC Transferrin Total Bilirubin Direct Bilirubin AST ALT Alkaline Phosphatase Lactate Dehydrogenase CK-MB (CK-2) Troponin T C-Reactive Protein Total Protein Albumin Triglycerides Cholesterol HDL Cholesterol Vitamin B12 Urine Creatinine Urine Total Protein Heparin-induced Plt Ab Hep Bs Antibody, Quant Crossmatch 12/13/16 12/13/16 12/13/16 09:57 11:02 16:52 WBC RBC Hgb Hct MCV MCHC RDW Plt Count Lymph % (Auto) [place] % (Auto) [place] # Baso # Seg Neutrophils % Seg Neuts % (Manual) Lymphocytes % (Manual) Monocytes % (Manual) Nucleated RBC % Seg Neutrophils # Seg Neutrophils # Man Lymphocytes # (Manual) Monocytes # (Manual) Percent Retic Haptoglobin PT INR Fibrinogen D-Dimer POC ABG pH POC ABG pCO2 POC ABG pO2 Sodium Potassium Chloride Carbon Dioxide BUN Creatinine Glucose POC Glucose < 40 L 231 H 312 H Lactic Acid Calcium Phosphorus Magnesium Iron TIBC Transferrin Total Bilirubin Direct Bilirubin AST ALT Alkaline Phosphatase Lactate Dehydrogenase CK-MB (CK-2) Troponin T C-Reactive Protein Total Protein Albumin Triglycerides Cholesterol HDL Cholesterol Vitamin B12 Urine Creatinine Urine Total Protein Heparin-induced Plt Ab Hep Bs Antibody, Quant Crossmatch 12/13/16 12/14/16 12/14/16 21:32 07:07 07:07 WBC 16.7 H RBC 2.80 L Hgb 7.9 L Hct 24.7 L MCV MCHC RDW 15.4 H Plt Count 131 L Lymph % (Auto) 13.1 L [place] % (Auto) [place] # 1.2 H Baso # Seg Neutrophils % 78.3 H Seg Neuts % (Manual) Lymphocytes % (Manual) Monocytes % (Manual) Nucleated RBC % Seg Neutrophils # 13.1 H Seg Neutrophils # Man Lymphocytes # (Manual) Monocytes # (Manual) Percent Retic Haptoglobin PT INR Fibrinogen D-Dimer POC ABG pH POC ABG pCO2 POC ABG pO2 Sodium Potassium 3.5 L Chloride Carbon Dioxide BUN 30 H Creatinine 4.6 H D Glucose 181 H POC Glucose 275 H Lactic Acid Calcium 7.7 L Phosphorus Magnesium Iron TIBC Transferrin Total Bilirubin Direct Bilirubin AST ALT Alkaline Phosphatase Lactate Dehydrogenase CK-MB (CK-2) Troponin T C-Reactive Protein Total Protein Albumin Triglycerides Cholesterol HDL Cholesterol Vitamin B12 Urine Creatinine Urine Total Protein Heparin-induced Plt Ab Hep Bs Antibody, Quant Crossmatch 12/14/16 12/14/16 12/14/16 07:46 11:35 16:24 WBC RBC Hgb Hct MCV MCHC RDW Plt Count Lymph % (Auto) [place] % (Auto) [place] # Baso # Seg Neutrophils % Seg Neuts % (Manual) Lymphocytes % (Manual) Monocytes % (Manual) Nucleated RBC % Seg Neutrophils # Seg Neutrophils # Man Lymphocytes # (Manual) Monocytes # (Manual) Percent Retic Haptoglobin PT INR Fibrinogen D-Dimer POC ABG pH POC ABG pCO2 POC ABG pO2 Sodium Potassium Chloride Carbon Dioxide BUN Creatinine Glucose POC Glucose 189 H 254 H 466 H Lactic Acid Calcium Phosphorus Magnesium Iron TIBC Transferrin Total Bilirubin Direct Bilirubin AST ALT Alkaline Phosphatase Lactate Dehydrogenase CK-MB (CK-2) Troponin T C-Reactive Protein Total Protein Albumin Triglycerides Cholesterol HDL Cholesterol Vitamin B12 Urine Creatinine Urine Total Protein Heparin-induced Plt Ab Hep Bs Antibody, Quant Crossmatch 12/14/16 12/15/16 12/15/16 20:57 06:27 07:46 WBC RBC Hgb Hct MCV MCHC RDW Plt Count Lymph % (Auto) [place] % (Auto) [place] # Baso # Seg Neutrophils % Seg Neuts % (Manual) Lymphocytes % (Manual) Monocytes % (Manual) Nucleated RBC % Seg Neutrophils # Seg Neutrophils # Man Lymphocytes # (Manual) Monocytes # (Manual) Percent Retic Haptoglobin PT INR Fibrinogen D-Dimer POC ABG pH POC ABG pCO2 POC ABG pO2 Sodium Potassium Chloride Carbon Dioxide BUN Creatinine Glucose POC Glucose 301 H 183 H 231 H Lactic Acid Calcium Phosphorus Magnesium Iron TIBC Transferrin Total Bilirubin Direct Bilirubin AST ALT Alkaline Phosphatase Lactate Dehydrogenase CK-MB (CK-2) Troponin T C-Reactive Protein Total Protein Albumin Triglycerides Cholesterol HDL Cholesterol Vitamin B12 Urine Creatinine Urine Total Protein Heparin-induced Plt Ab Hep Bs Antibody, Quant Crossmatch 12/15/16 12/15/16 12/15/16 11:38 15:34 20:51 WBC RBC Hgb Hct MCV MCHC RDW Plt Count Lymph % (Auto) [place] % (Auto) [place] # Baso # Seg Neutrophils % Seg Neuts % (Manual) Lymphocytes % (Manual) Monocytes % (Manual) Nucleated RBC % Seg Neutrophils # Seg Neutrophils # Man Lymphocytes # (Manual) Monocytes # (Manual) Percent Retic Haptoglobin PT INR Fibrinogen D-Dimer POC ABG pH POC ABG pCO2 POC ABG pO2 Sodium Potassium Chloride Carbon Dioxide BUN Creatinine Glucose POC Glucose 375 H 313 H 274 H Lactic Acid Calcium Phosphorus Magnesium Iron TIBC Transferrin Total Bilirubin Direct Bilirubin AST ALT Alkaline Phosphatase Lactate Dehydrogenase CK-MB (CK-2) Troponin T C-Reactive Protein Total Protein Albumin Triglycerides Cholesterol HDL Cholesterol Vitamin B12 Urine Creatinine Urine Total Protein Heparin-induced Plt Ab Hep Bs Antibody, Quant Crossmatch 12/16/16 12/16/16 12/16/16 08:26 09:12 17:13 WBC RBC Hgb Hct MCV MCHC RDW Plt Count Lymph % (Auto) [place] % (Auto) [place] # Baso # Seg Neutrophils % Seg Neuts % (Manual) Lymphocytes % (Manual) Monocytes % (Manual) Nucleated RBC % Seg Neutrophils # Seg Neutrophils # Man Lymphocytes # (Manual) Monocytes # (Manual) Percent Retic Haptoglobin PT INR Fibrinogen D-Dimer POC ABG pH POC ABG pCO2 POC ABG pO2 Sodium Potassium Chloride Carbon Dioxide BUN Creatinine Glucose POC Glucose 59 L 127 H > 500 H Lactic Acid Calcium Phosphorus Magnesium Iron TIBC Transferrin Total Bilirubin Direct Bilirubin AST ALT Alkaline Phosphatase Lactate Dehydrogenase CK-MB (CK-2) Troponin T C-Reactive Protein Total Protein Albumin Triglycerides Cholesterol HDL Cholesterol Vitamin B12 Urine Creatinine Urine Total Protein Heparin-induced Plt Ab Hep Bs Antibody, Quant Crossmatch 12/16/16 12/16/16 12/16/16 22:59 Unknown Unknown WBC 17.2 H RBC 2.83 L Hgb 7.9 L Hct 24.4 L MCV MCHC RDW Plt Count Lymph % (Auto) 9.2 L [place] % (Auto) [place] # 0.9 H Baso # Seg Neutrophils % 84.1 H Seg Neuts % (Manual) Lymphocytes % (Manual) Monocytes % (Manual) Nucleated RBC % Seg Neutrophils # 14.5 H Seg Neutrophils # Man Lymphocytes # (Manual) Monocytes # (Manual) Percent Retic Haptoglobin PT INR Fibrinogen D-Dimer POC ABG pH POC ABG pCO2 POC ABG pO2 Sodium Potassium Chloride Carbon Dioxide BUN 43 H Creatinine 5.4 H Glucose 131 H POC Glucose 320 H Lactic Acid Calcium 6.9 L Phosphorus Magnesium Iron TIBC Transferrin Total Bilirubin Direct Bilirubin AST ALT Alkaline Phosphatase Lactate Dehydrogenase CK-MB (CK-2) Troponin T C-Reactive Protein Total Protein Albumin Triglycerides Cholesterol HDL Cholesterol Vitamin B12 Urine Creatinine Urine Total Protein Heparin-induced Plt Ab Hep Bs Antibody, Quant Crossmatch 12/17/16 12/17/16 12/17/16 08:26 08:56 09:52 WBC RBC Hgb Hct MCV MCHC RDW Plt Count Lymph % (Auto) [place] % (Auto) [place] # Baso # Seg Neutrophils % Seg Neuts % (Manual) Lymphocytes % (Manual) Monocytes % (Manual) Nucleated RBC % Seg Neutrophils # Seg Neutrophils # Man Lymphocytes # (Manual) Monocytes # (Manual) Percent Retic Haptoglobin PT INR Fibrinogen D-Dimer POC ABG pH POC ABG pCO2 POC ABG pO2 Sodium Potassium Chloride Carbon Dioxide BUN Creatinine Glucose POC Glucose < 40 L 40 L 133 H Lactic Acid Calcium Phosphorus Magnesium Iron TIBC Transferrin Total Bilirubin Direct Bilirubin AST ALT Alkaline Phosphatase Lactate Dehydrogenase CK-MB (CK-2) Troponin T C-Reactive Protein Total Protein Albumin Triglycerides Cholesterol HDL Cholesterol Vitamin B12 Urine Creatinine Urine Total Protein Heparin-induced Plt Ab Hep Bs Antibody, Quant Crossmatch 12/17/16 12/17/16 12/17/16 12:51 16:08 21:00 WBC RBC Hgb Hct MCV MCHC RDW Plt Count Lymph % (Auto) [place] % (Auto) [place] # Baso # Seg Neutrophils % Seg Neuts % (Manual) Lymphocytes % (Manual) Monocytes % (Manual) Nucleated RBC % Seg Neutrophils # Seg Neutrophils # Man Lymphocytes # (Manual) Monocytes # (Manual) Percent Retic Haptoglobin PT INR Fibrinogen D-Dimer POC ABG pH POC ABG pCO2 POC ABG pO2 Sodium Potassium Chloride Carbon Dioxide BUN Creatinine Glucose POC Glucose 177 H 303 H 489 H Lactic Acid Calcium Phosphorus Magnesium Iron TIBC Transferrin Total Bilirubin Direct Bilirubin AST ALT Alkaline Phosphatase Lactate Dehydrogenase CK-MB (CK-2) Troponin T C-Reactive Protein Total Protein Albumin Triglycerides Cholesterol HDL Cholesterol Vitamin B12 Urine Creatinine Urine Total Protein Heparin-induced Plt Ab Hep Bs Antibody, Quant Crossmatch 12/17/16 12/17/16 12/18/16 Unknown Unknown 05:50 WBC 16.6 H 15.6 H RBC 2.63 L 2.58 L Hgb 7.5 L 7.3 L Hct 23.3 L 23.0 L MCV MCHC RDW 15.3 H 15.9 H Plt Count Lymph % (Auto) 7.7 L 8.7 L [place] % (Auto) [place] # 0.9 H Baso # Seg Neutrophils % 85.8 H 83.6 H Seg Neuts % (Manual) Lymphocytes % (Manual) Monocytes % (Manual) Nucleated RBC % Seg Neutrophils # 14.3 H 13.0 H Seg Neutrophils # Man Lymphocytes # (Manual) Monocytes # (Manual) Percent Retic Haptoglobin PT INR Fibrinogen D-Dimer POC ABG pH POC ABG pCO2 POC ABG pO2 Sodium Potassium 3.5 L Chloride Carbon Dioxide BUN 47 H Creatinine 5.2 H Glucose 173 H POC Glucose Lactic Acid Calcium 6.9 L Phosphorus Magnesium Iron TIBC Transferrin Total Bilirubin Direct Bilirubin AST ALT Alkaline Phosphatase Lactate Dehydrogenase CK-MB (CK-2) Troponin T C-Reactive Protein Total Protein Albumin Triglycerides Cholesterol HDL Cholesterol Vitamin B12 Urine Creatinine Urine Total Protein Heparin-induced Plt Ab Hep Bs Antibody, Quant Crossmatch 12/18/16 12/18/16 12/18/16 05:50 09:09 16:46 WBC RBC Hgb Hct MCV MCHC RDW Plt Count Lymph % (Auto) [place] % (Auto) [place] # Baso # Seg Neutrophils % Seg Neuts % (Manual) Lymphocytes % (Manual) Monocytes % (Manual) Nucleated RBC % Seg Neutrophils # Seg Neutrophils # Man Lymphocytes # (Manual) Monocytes # (Manual) Percent Retic Haptoglobin PT INR Fibrinogen D-Dimer POC ABG pH POC ABG pCO2 POC ABG pO2 Sodium Potassium Chloride Carbon Dioxide 17 L BUN 46 H Creatinine 5.0 H Glucose 252 H POC Glucose 349 H 324 H Lactic Acid Calcium 6.8 L Phosphorus Magnesium Iron TIBC Transferrin Total Bilirubin Direct Bilirubin AST ALT Alkaline Phosphatase Lactate Dehydrogenase CK-MB (CK-2) Troponin T C-Reactive Protein Total Protein Albumin Triglycerides Cholesterol HDL Cholesterol Vitamin B12 Urine Creatinine Urine Total Protein Heparin-induced Plt Ab Hep Bs Antibody, Quant Crossmatch 12/18/16 12/19/16 12/19/16 21:14 08:12 10:23 WBC 13.7 H RBC 2.60 L Hgb 7.5 L Hct 23.1 L MCV MCHC RDW 15.7 H Plt Count Lymph % (Auto) 9.1 L [place] % (Auto) [place] # 0.9 H Baso # Seg Neutrophils % 82.2 H Seg Neuts % (Manual) Lymphocytes % (Manual) Monocytes % (Manual) Nucleated RBC % Seg Neutrophils # 11.3 H Seg Neutrophils # Man Lymphocytes # (Manual) Monocytes # (Manual) Percent Retic Haptoglobin PT INR Fibrinogen D-Dimer POC ABG pH POC ABG pCO2 POC ABG pO2 Sodium Potassium Chloride Carbon Dioxide BUN Creatinine Glucose POC Glucose 316 H 464 H Lactic Acid Calcium Phosphorus Magnesium Iron TIBC Transferrin Total Bilirubin Direct Bilirubin AST ALT Alkaline Phosphatase Lactate Dehydrogenase CK-MB (CK-2) Troponin T C-Reactive Protein Total Protein Albumin Triglycerides Cholesterol HDL Cholesterol Vitamin B12 Urine Creatinine Urine Total Protein Heparin-induced Plt Ab Hep Bs Antibody, Quant Crossmatch 12/19/16 12/19/16 12/19/16 10:23 11:39 16:00 WBC RBC Hgb Hct MCV MCHC RDW Plt Count Lymph % (Auto) [place] % (Auto) [place] # Baso # Seg Neutrophils % Seg Neuts % (Manual) Lymphocytes % (Manual) Monocytes % (Manual) Nucleated RBC % Seg Neutrophils # Seg Neutrophils # Man Lymphocytes # (Manual) Monocytes # (Manual) Percent Retic Haptoglobin PT INR Fibrinogen D-Dimer POC ABG pH POC ABG pCO2 POC ABG pO2 Sodium Potassium 3.5 L Chloride Carbon Dioxide 14 L BUN 22 H Creatinine 3.2 H Glucose 446 H POC Glucose 344 H 467 H Lactic Acid Calcium 6.9 L Phosphorus 1.70 L D Magnesium Iron TIBC Transferrin Total Bilirubin Direct Bilirubin AST ALT Alkaline Phosphatase Lactate Dehydrogenase CK-MB (CK-2) Troponin T C-Reactive Protein Total Protein Albumin Triglycerides Cholesterol HDL Cholesterol Vitamin B12 Urine Creatinine Urine Total Protein Heparin-induced Plt Ab Hep Bs Antibody, Quant Crossmatch 12/19/16 12/19/16 12/19/16 16:35 16:35 21:16 WBC 19.3 H RBC 2.37 L Hgb 6.9 L Hct 21.8 L MCV MCHC RDW 16.7 H Plt Count Lymph % (Auto) [place] % (Auto) [place] # Baso # Seg Neutrophils % Seg Neuts % (Manual) Lymphocytes % (Manual) Monocytes % (Manual) Nucleated RBC % Seg Neutrophils # Seg Neutrophils # Man Lymphocytes # (Manual) Monocytes # (Manual) Percent Retic Haptoglobin PT INR Fibrinogen D-Dimer POC ABG pH POC ABG pCO2 POC ABG pO2 Sodium Potassium 3.4 L Chloride Carbon Dioxide 17 L BUN 23 H Creatinine 3.2 H Glucose 427 H POC Glucose 397 H Lactic Acid Calcium 6.9 L Phosphorus 2.40 L D Magnesium Iron TIBC Transferrin Total Bilirubin Direct Bilirubin AST ALT Alkaline Phosphatase Lactate Dehydrogenase CK-MB (CK-2) Troponin T C-Reactive Protein Total Protein Albumin Triglycerides Cholesterol HDL Cholesterol Vitamin B12 Urine Creatinine Urine Total Protein Heparin-induced Plt Ab Hep Bs Antibody, Quant Crossmatch 12/20/16 12/20/16 12/20/16 06:00 06:00 07:55 WBC 17.5 H RBC 2.54 L Hgb 7.3 L Hct 23.5 L MCV MCHC RDW 16.4 H Plt Count Lymph % (Auto) 9.0 L [place] % (Auto) [place] # 1.1 H Baso # Seg Neutrophils % 83.0 H Seg Neuts % (Manual) Lymphocytes % (Manual) Monocytes % (Manual) Nucleated RBC % Seg Neutrophils # 14.5 H Seg Neutrophils # Man Lymphocytes # (Manual) Monocytes # (Manual) Percent Retic Haptoglobin PT INR Fibrinogen D-Dimer POC ABG pH POC ABG pCO2 POC ABG pO2 Sodium 136 L Potassium Chloride 92.4 L Carbon Dioxide 15 L BUN Creatinine 2.6 H Glucose 475 H POC Glucose > 500 H Lactic Acid Calcium Phosphorus Magnesium Iron TIBC Transferrin Total Bilirubin Direct Bilirubin AST ALT Alkaline Phosphatase Lactate Dehydrogenase CK-MB (CK-2) Troponin T C-Reactive Protein Total Protein Albumin Triglycerides Cholesterol HDL Cholesterol Vitamin B12 Urine Creatinine Urine Total Protein Heparin-induced Plt Ab Hep Bs Antibody, Quant Crossmatch 12/20/16 12/20/16 12/20/16 11:21 16:01 22:33 WBC RBC Hgb Hct MCV MCHC RDW Plt Count Lymph % (Auto) [place] % (Auto) [place] # Baso # Seg Neutrophils % Seg Neuts % (Manual) Lymphocytes % (Manual) Monocytes % (Manual) Nucleated RBC % Seg Neutrophils # Seg Neutrophils # Man Lymphocytes # (Manual) Monocytes # (Manual) Percent Retic Haptoglobin PT INR Fibrinogen D-Dimer POC ABG pH POC ABG pCO2 POC ABG pO2 Sodium Potassium Chloride Carbon Dioxide BUN Creatinine Glucose POC Glucose > 500 H 446 H > 500 H Lactic Acid Calcium Phosphorus Magnesium Iron TIBC Transferrin Total Bilirubin Direct Bilirubin AST ALT Alkaline Phosphatase Lactate Dehydrogenase CK-MB (CK-2) Troponin T C-Reactive Protein Total Protein Albumin Triglycerides Cholesterol HDL Cholesterol Vitamin B12 Urine Creatinine Urine Total Protein Heparin-induced Plt Ab Hep Bs Antibody, Quant Crossmatch 12/20/16 12/20/16 12/21/16 22:37 23:00 00:48 WBC RBC Hgb Hct MCV MCHC RDW Plt Count Lymph % (Auto) [place] % (Auto) [place] # Baso # Seg Neutrophils % Seg Neuts % (Manual) Lymphocytes % (Manual) Monocytes % (Manual) Nucleated RBC % Seg Neutrophils # Seg Neutrophils # Man Lymphocytes # (Manual) Monocytes # (Manual) Percent Retic Haptoglobin PT INR Fibrinogen D-Dimer POC ABG pH POC ABG pCO2 POC ABG pO2 Sodium 128 L D Potassium Chloride 83.2 L Carbon Dioxide 11 L BUN 32 H Creatinine 3.5 H Glucose 822 H* POC Glucose > 500 H > 500 H Lactic Acid Calcium 8.2 L Phosphorus Magnesium Iron TIBC Transferrin Total Bilirubin Direct Bilirubin AST ALT Alkaline Phosphatase Lactate Dehydrogenase CK-MB (CK-2) Troponin T C-Reactive Protein Total Protein Albumin Triglycerides Cholesterol HDL Cholesterol Vitamin B12 Urine Creatinine Urine Total Protein Heparin-induced Plt Ab Hep Bs Antibody, Quant Crossmatch 12/21/16 12/21/16 12/21/16 03:17 05:00 05:00 WBC 15.7 H RBC 2.32 L Hgb 6.8 L Hct 20.6 L MCV MCHC RDW 16.3 H Plt Count Lymph % (Auto) 11.5 L [place] % (Auto) 7.4 H [place] # 1.2 H Baso # Seg Neutrophils % 78.7 H Seg Neuts % (Manual) Lymphocytes % (Manual) Monocytes % (Manual) Nucleated RBC % Seg Neutrophils # 12.4 H Seg Neutrophils # Man Lymphocytes # (Manual) Monocytes # (Manual) Percent Retic Haptoglobin PT INR Fibrinogen D-Dimer POC ABG pH POC ABG pCO2 POC ABG pO2 Sodium Potassium Chloride 95.3 L Carbon Dioxide 20 L D BUN 32 H Creatinine 3.7 H Glucose 243 H POC Glucose 428 H Lactic Acid Calcium 8.1 L Phosphorus Magnesium Iron TIBC 193.20 L Transferrin 138 L Total Bilirubin Direct Bilirubin AST ALT Alkaline Phosphatase Lactate Dehydrogenase CK-MB (CK-2) Troponin T C-Reactive Protein Total Protein Albumin Triglycerides Cholesterol HDL Cholesterol Vitamin B12 Urine Creatinine Urine Total Protein Heparin-induced Plt Ab Hep Bs Antibody, Quant Crossmatch 12/21/16 12/21/16 12/21/16 05:40 06:49 08:20 WBC RBC Hgb Hct MCV MCHC RDW Plt Count Lymph % (Auto) [place] % (Auto) [place] # Baso # Seg Neutrophils % Seg Neuts % (Manual) Lymphocytes % (Manual) Monocytes % (Manual) Nucleated RBC % Seg Neutrophils # Seg Neutrophils # Man Lymphocytes # (Manual) Monocytes # (Manual) Percent Retic Haptoglobin PT INR Fibrinogen D-Dimer POC ABG pH POC ABG pCO2 POC ABG pO2 Sodium Potassium Chloride Carbon Dioxide BUN Creatinine Glucose POC Glucose 271 H 236 H 222 H Lactic Acid Calcium Phosphorus Magnesium Iron TIBC Transferrin Total Bilirubin Direct Bilirubin AST ALT Alkaline Phosphatase Lactate Dehydrogenase CK-MB (CK-2) Troponin T C-Reactive Protein Total Protein Albumin Triglycerides Cholesterol HDL Cholesterol Vitamin B12 Urine Creatinine Urine Total Protein Heparin-induced Plt Ab Hep Bs Antibody, Quant Crossmatch 12/21/16 12/21/16 12/21/16 16:28 18:26 21:10 WBC RBC Hgb Hct MCV MCHC RDW Plt Count Lymph % (Auto) [place] % (Auto) [place] # Baso # Seg Neutrophils % Seg Neuts % (Manual) Lymphocytes % (Manual) Monocytes % (Manual) Nucleated RBC % Seg Neutrophils # Seg Neutrophils # Man Lymphocytes # (Manual) Monocytes # (Manual) Percent Retic Haptoglobin PT INR Fibrinogen D-Dimer POC ABG pH POC ABG pCO2 POC ABG pO2 Sodium Potassium Chloride Carbon Dioxide BUN Creatinine Glucose POC Glucose < 40 L 62 L 255 H Lactic Acid Calcium Phosphorus Magnesium Iron TIBC Transferrin Total Bilirubin Direct Bilirubin AST ALT Alkaline Phosphatase Lactate Dehydrogenase CK-MB (CK-2) Troponin T C-Reactive Protein Total Protein Albumin Triglycerides Cholesterol HDL Cholesterol Vitamin B12 Urine Creatinine Urine Total Protein Heparin-induced Plt Ab Hep Bs Antibody, Quant Crossmatch 12/22/16 12/22/16 12/22/16 03:38 06:45 06:45 WBC 17.4 H RBC 2.26 L Hgb 6.6 L Hct 20.5 L MCV MCHC RDW 15.7 H Plt Count Lymph % (Auto) 8.1 L [place] % (Auto) [place] # 0.9 H Baso # 0.2 H Seg Neutrophils % 84.3 H Seg Neuts % (Manual) Lymphocytes % (Manual) Monocytes % (Manual) Nucleated RBC % Seg Neutrophils # 14.6 H Seg Neutrophils # Man Lymphocytes # (Manual) Monocytes # (Manual) Percent Retic Haptoglobin PT INR Fibrinogen D-Dimer POC ABG pH POC ABG pCO2 POC ABG pO2 Sodium Potassium 3.3 L Chloride 95.5 L Carbon Dioxide 20 L BUN Creatinine 2.5 H Glucose 308 H POC Glucose 430 H Lactic Acid Calcium 8.2 L Phosphorus Magnesium Iron TIBC Transferrin Total Bilirubin Direct Bilirubin AST ALT Alkaline Phosphatase Lactate Dehydrogenase CK-MB (CK-2) Troponin T C-Reactive Protein Total Protein Albumin Triglycerides Cholesterol HDL Cholesterol Vitamin B12 Urine Creatinine Urine Total Protein Heparin-induced Plt Ab Hep Bs Antibody, Quant Crossmatch 12/22/16 12/22/16 12/22/16 08:31 12:50 15:46 WBC RBC Hgb Hct MCV MCHC RDW Plt Count Lymph % (Auto) [place] % (Auto) [place] # Baso # Seg Neutrophils % Seg Neuts % (Manual) Lymphocytes % (Manual) Monocytes % (Manual) Nucleated RBC % Seg Neutrophils # Seg Neutrophils # Man Lymphocytes # (Manual) Monocytes # (Manual) Percent Retic Haptoglobin PT INR Fibrinogen D-Dimer POC ABG pH POC ABG pCO2 POC ABG pO2 Sodium Potassium Chloride Carbon Dioxide BUN Creatinine Glucose POC Glucose 306 H 391 H Lactic Acid Calcium Phosphorus Magnesium Iron TIBC Transferrin Total Bilirubin Direct Bilirubin AST ALT Alkaline Phosphatase Lactate Dehydrogenase CK-MB (CK-2) Troponin T C-Reactive Protein Total Protein Albumin Triglycerides Cholesterol HDL Cholesterol Vitamin B12 Urine Creatinine Urine Total Protein Heparin-induced Plt Ab Hep Bs Antibody, Quant Crossmatch See Detail 12/22/16 12/22/16 12/23/16 17:13 21:45 06:42 WBC 17.9 H RBC 2.75 L Hgb 8.1 L Hct 24.8 L MCV MCHC RDW 17.1 H Plt Count Lymph % (Auto) [place] % (Auto) [place] # Baso # Seg Neutrophils % Seg Neuts % (Manual) Lymphocytes % (Manual) Monocytes % (Manual) Nucleated RBC % Seg Neutrophils # Seg Neutrophils # Man Lymphocytes # (Manual) Monocytes # (Manual) Percent Retic Haptoglobin PT INR Fibrinogen D-Dimer POC ABG pH POC ABG pCO2 POC ABG pO2 Sodium Potassium Chloride Carbon Dioxide BUN Creatinine Glucose POC Glucose > 500 H 449 H Lactic Acid Calcium Phosphorus Magnesium Iron TIBC Transferrin Total Bilirubin Direct Bilirubin AST ALT Alkaline Phosphatase Lactate Dehydrogenase CK-MB (CK-2) Troponin T C-Reactive Protein Total Protein Albumin Triglycerides Cholesterol HDL Cholesterol Vitamin B12 Urine Creatinine Urine Total Protein Heparin-induced Plt Ab Hep Bs Antibody, Quant Crossmatch 12/23/16 12/23/16 12/23/16 06:42 07:46 11:33 WBC RBC Hgb Hct MCV MCHC RDW Plt Count Lymph % (Auto) [place] % (Auto) [place] # Baso # Seg Neutrophils % Seg Neuts % (Manual) Lymphocytes % (Manual) Monocytes % (Manual) Nucleated RBC % Seg Neutrophils # Seg Neutrophils # Man Lymphocytes # (Manual) Monocytes # (Manual) Percent Retic Haptoglobin PT INR Fibrinogen D-Dimer POC ABG pH POC ABG pCO2 POC ABG pO2 Sodium Potassium 3.5 L Chloride 94.7 L Carbon Dioxide 19 L BUN 22 H Creatinine 2.9 H Glucose 401 H POC Glucose 449 H 298 H Lactic Acid Calcium 8.3 L Phosphorus Magnesium Iron TIBC Transferrin Total Bilirubin Direct Bilirubin AST ALT Alkaline Phosphatase Lactate Dehydrogenase CK-MB (CK-2) Troponin T C-Reactive Protein Total Protein Albumin Triglycerides Cholesterol HDL Cholesterol Vitamin B12 Urine Creatinine Urine Total Protein Heparin-induced Plt Ab Hep Bs Antibody, Quant Crossmatch 12/23/16 12/23/16 12/24/16 18:24 21:30 00:00 WBC RBC Hgb Hct MCV MCHC RDW Plt Count Lymph % (Auto) [place] % (Auto) [place] # Baso # Seg Neutrophils % Seg Neuts % (Manual) Lymphocytes % (Manual) Monocytes % (Manual) Nucleated RBC % Seg Neutrophils # Seg Neutrophils # Man Lymphocytes # (Manual) Monocytes # (Manual) Percent Retic Haptoglobin PT INR Fibrinogen D-Dimer POC ABG pH POC ABG pCO2 POC ABG pO2 Sodium Potassium Chloride Carbon Dioxide BUN Creatinine Glucose POC Glucose 177 H 455 H Lactic Acid Calcium Phosphorus Magnesium Iron TIBC Transferrin Total Bilirubin Direct Bilirubin AST ALT Alkaline Phosphatase Lactate Dehydrogenase CK-MB (CK-2) Troponin T C-Reactive Protein Total Protein Albumin Triglycerides Cholesterol HDL Cholesterol Vitamin B12 Urine Creatinine 239.9 H Urine Total Protein Heparin-induced Plt Ab Hep Bs Antibody, Quant Crossmatch 12/24/16 12/24/16 12/24/16 05:00 16:11 18:55 WBC RBC Hgb Hct MCV MCHC RDW Plt Count Lymph % (Auto) [place] % (Auto) [place] # Baso # Seg Neutrophils % Seg Neuts % (Manual) Lymphocytes % (Manual) Monocytes % (Manual) Nucleated RBC % Seg Neutrophils # Seg Neutrophils # Man Lymphocytes # (Manual) Monocytes # (Manual) Percent Retic Haptoglobin PT INR Fibrinogen D-Dimer POC ABG pH POC ABG pCO2 POC ABG pO2 Sodium Potassium 3.1 L Chloride 95.8 L Carbon Dioxide BUN Creatinine 1.8 H Glucose 106 H POC Glucose 175 H 148 H Lactic Acid Calcium Phosphorus Magnesium Iron TIBC Transferrin Total Bilirubin Direct Bilirubin AST ALT Alkaline Phosphatase Lactate Dehydrogenase CK-MB (CK-2) Troponin T C-Reactive Protein Total Protein Albumin Triglycerides Cholesterol HDL Cholesterol Vitamin B12 Urine Creatinine Urine Total Protein Heparin-induced Plt Ab Hep Bs Antibody, Quant Crossmatch 12/24/16 12/24/16 12/25/16 20:41 22:21 05:03 WBC RBC Hgb Hct MCV MCHC RDW Plt Count Lymph % (Auto) [place] % (Auto) [place] # Baso # Seg Neutrophils % Seg Neuts % (Manual) Lymphocytes % (Manual) Monocytes % (Manual) Nucleated RBC % Seg Neutrophils # Seg Neutrophils # Man Lymphocytes # (Manual) Monocytes # (Manual) Percent Retic Haptoglobin PT INR Fibrinogen D-Dimer POC ABG pH POC ABG pCO2 POC ABG pO2 Sodium Potassium 2.9 L* Chloride Carbon Dioxide BUN Creatinine 2.3 H Glucose 142 H POC Glucose 44 L 111 H Lactic Acid Calcium 8.0 L Phosphorus Magnesium Iron TIBC Transferrin Total Bilirubin Direct Bilirubin AST ALT Alkaline Phosphatase Lactate Dehydrogenase CK-MB (CK-2) Troponin T C-Reactive Protein Total Protein Albumin Triglycerides Cholesterol HDL Cholesterol Vitamin B12 Urine Creatinine Urine Total Protein Heparin-induced Plt Ab Hep Bs Antibody, Quant Crossmatch 12/25/16 12/25/16 12/25/16 07:30 12:08 16:43 WBC RBC Hgb Hct MCV MCHC RDW Plt Count Lymph % (Auto) [place] % (Auto) [place] # Baso # Seg Neutrophils % Seg Neuts % (Manual) Lymphocytes % (Manual) Monocytes % (Manual) Nucleated RBC % Seg Neutrophils # Seg Neutrophils # Man Lymphocytes # (Manual) Monocytes # (Manual) Percent Retic Haptoglobin PT INR Fibrinogen D-Dimer POC ABG pH POC ABG pCO2 POC ABG pO2 Sodium Potassium Chloride Carbon Dioxide BUN Creatinine Glucose POC Glucose 127 H 154 H 235 H Lactic Acid Calcium Phosphorus Magnesium Iron TIBC Transferrin Total Bilirubin Direct Bilirubin AST ALT Alkaline Phosphatase Lactate Dehydrogenase CK-MB (CK-2) Troponin T C-Reactive Protein Total Protein Albumin Triglycerides Cholesterol HDL Cholesterol Vitamin B12 Urine Creatinine Urine Total Protein Heparin-induced Plt Ab Hep Bs Antibody, Quant Crossmatch 12/25/16 12/26/16 12/26/16 23:30 07:49 10:21 WBC RBC Hgb Hct MCV MCHC RDW Plt Count Lymph % (Auto) [place] % (Auto) [place] # Baso # Seg Neutrophils % Seg Neuts % (Manual) Lymphocytes % (Manual) Monocytes % (Manual) Nucleated RBC % Seg Neutrophils # Seg Neutrophils # Man Lymphocytes # (Manual) Monocytes # (Manual) Percent Retic Haptoglobin PT INR Fibrinogen D-Dimer POC ABG pH POC ABG pCO2 POC ABG pO2 Sodium Potassium Chloride Carbon Dioxide BUN Creatinine Glucose POC Glucose 54 L 53 L 154 H Lactic Acid Calcium Phosphorus Magnesium Iron TIBC Transferrin Total Bilirubin Direct Bilirubin AST ALT Alkaline Phosphatase Lactate Dehydrogenase CK-MB (CK-2) Troponin T C-Reactive Protein Total Protein Albumin Triglycerides Cholesterol HDL Cholesterol Vitamin B12 Urine Creatinine Urine Total Protein Heparin-induced Plt Ab Hep Bs Antibody, Quant Crossmatch 12/26/16 12/26/16 12/26/16 12:19 16:14 Unknown WBC RBC Hgb Hct MCV MCHC RDW Plt Count Lymph % (Auto) [place] % (Auto) [place] # Baso # Seg Neutrophils % Seg Neuts % (Manual) Lymphocytes % (Manual) Monocytes % (Manual) Nucleated RBC % Seg Neutrophils # Seg Neutrophils # Man Lymphocytes # (Manual) Monocytes # (Manual) Percent Retic Haptoglobin PT INR Fibrinogen D-Dimer POC ABG pH POC ABG pCO2 POC ABG pO2 Sodium Potassium Chloride Carbon Dioxide BUN Creatinine 2.3 H Glucose POC Glucose 310 H Lactic Acid Calcium 8.3 L Phosphorus Magnesium 1.50 L Iron TIBC Transferrin Total Bilirubin Direct Bilirubin AST ALT Alkaline Phosphatase Lactate Dehydrogenase CK-MB (CK-2) Troponin T C-Reactive Protein Total Protein Albumin Triglycerides Cholesterol HDL Cholesterol Vitamin B12 Urine Creatinine Urine Total Protein Heparin-induced Plt Ab Hep Bs Antibody, Quant Crossmatch 12/26/16 12/26/16 12/27/16 Unknown Unknown 04:47 WBC RBC 2.95 L Hgb 9.0 L Hct 26.5 L MCV MCHC RDW 16.6 H Plt Count Lymph % (Auto) [place] % (Auto) [place] # Baso # Seg Neutrophils % Seg Neuts % (Manual) Lymphocytes % (Manual) Monocytes % (Manual) Nucleated RBC % Seg Neutrophils # Seg Neutrophils # Man Lymphocytes # (Manual) Monocytes # (Manual) Percent Retic Haptoglobin PT INR Fibrinogen D-Dimer POC ABG pH POC ABG pCO2 POC ABG pO2 Sodium Potassium Chloride Carbon Dioxide BUN Creatinine 2.3 H Glucose 157 H POC Glucose 406 H Lactic Acid Calcium 7.7 L Phosphorus Magnesium Iron TIBC Transferrin Total Bilirubin Direct Bilirubin AST ALT Alkaline Phosphatase Lactate Dehydrogenase CK-MB (CK-2) Troponin T C-Reactive Protein Total Protein Albumin Triglycerides Cholesterol HDL Cholesterol Vitamin B12 Urine Creatinine Urine Total Protein Heparin-induced Plt Ab Hep Bs Antibody, Quant Crossmatch 12/27/16 12/27/16 12/27/16 07:54 11:09 15:40 WBC RBC Hgb Hct MCV MCHC RDW Plt Count Lymph % (Auto) [place] % (Auto) [place] # Baso # Seg Neutrophils % Seg Neuts % (Manual) Lymphocytes % (Manual) Monocytes % (Manual) Nucleated RBC % Seg Neutrophils # Seg Neutrophils # Man Lymphocytes # (Manual) Monocytes # (Manual) Percent Retic Haptoglobin PT INR Fibrinogen D-Dimer POC ABG pH POC ABG pCO2 POC ABG pO2 Sodium Potassium Chloride Carbon Dioxide BUN Creatinine Glucose POC Glucose 500 H 301 H 208 H Lactic Acid Calcium Phosphorus Magnesium Iron TIBC Transferrin Total Bilirubin Direct Bilirubin AST ALT Alkaline Phosphatase Lactate Dehydrogenase CK-MB (CK-2) Troponin T C-Reactive Protein Total Protein Albumin Triglycerides Cholesterol HDL Cholesterol Vitamin B12 Urine Creatinine Urine Total Protein Heparin-induced Plt Ab Hep Bs Antibody, Quant Crossmatch 12/27/16 12/28/16 12/28/16 21:00 06:17 07:30 WBC RBC Hgb Hct MCV MCHC RDW Plt Count Lymph % (Auto) [place] % (Auto) [place] # Baso # Seg Neutrophils % Seg Neuts % (Manual) Lymphocytes % (Manual) Monocytes % (Manual) Nucleated RBC % Seg Neutrophils # Seg Neutrophils # Man Lymphocytes # (Manual) Monocytes # (Manual) Percent Retic Haptoglobin PT INR Fibrinogen D-Dimer POC ABG pH POC ABG pCO2 POC ABG pO2 Sodium Potassium 5.1 H D Chloride Carbon Dioxide 19 L BUN 24 H Creatinine 2.0 H Glucose 394 H POC Glucose 347 H 409 H Lactic Acid Calcium 7.7 L Phosphorus Magnesium Iron TIBC Transferrin Total Bilirubin Direct Bilirubin AST ALT Alkaline Phosphatase Lactate Dehydrogenase CK-MB (CK-2) Troponin T C-Reactive Protein Total Protein Albumin Triglycerides Cholesterol HDL Cholesterol Vitamin B12 Urine Creatinine Urine Total Protein Heparin-induced Plt Ab Hep Bs Antibody, Quant Crossmatch 12/28/16 12/28/16 12/28/16 11:33 16:38 20:59 WBC RBC Hgb Hct MCV MCHC RDW Plt Count Lymph % (Auto) [place] % (Auto) [place] # Baso # Seg Neutrophils % Seg Neuts % (Manual) Lymphocytes % (Manual) Monocytes % (Manual) Nucleated RBC % Seg Neutrophils # Seg Neutrophils # Man Lymphocytes # (Manual) Monocytes # (Manual) Percent Retic Haptoglobin PT INR Fibrinogen D-Dimer POC ABG pH POC ABG pCO2 POC ABG pO2 Sodium Potassium Chloride Carbon Dioxide BUN Creatinine Glucose POC Glucose 260 H 240 H 45 L Lactic Acid Calcium Phosphorus Magnesium Iron TIBC Transferrin Total Bilirubin Direct Bilirubin AST ALT Alkaline Phosphatase Lactate Dehydrogenase CK-MB (CK-2) Troponin T C-Reactive Protein Total Protein Albumin Triglycerides Cholesterol HDL Cholesterol Vitamin B12 Urine Creatinine Urine Total Protein Heparin-induced Plt Ab Hep Bs Antibody, Quant Crossmatch 12/28/16 12/29/16 12/29/16 22:14 04:45 05:52 WBC RBC Hgb Hct MCV MCHC RDW Plt Count Lymph % (Auto) [place] % (Auto) [place] # Baso # Seg Neutrophils % Seg Neuts % (Manual) Lymphocytes % (Manual) Monocytes % (Manual) Nucleated RBC % Seg Neutrophils # Seg Neutrophils # Man Lymphocytes # (Manual) Monocytes # (Manual) Percent Retic Haptoglobin PT INR Fibrinogen D-Dimer POC ABG pH POC ABG pCO2 POC ABG pO2 Sodium Potassium Chloride Carbon Dioxide BUN 23 H Creatinine 2.0 H Glucose 166 H POC Glucose 56 L 43 L Lactic Acid Calcium 7.7 L Phosphorus Magnesium Iron TIBC Transferrin Total Bilirubin Direct Bilirubin AST ALT Alkaline Phosphatase Lactate Dehydrogenase CK-MB (CK-2) Troponin T C-Reactive Protein Total Protein Albumin Triglycerides Cholesterol HDL Cholesterol Vitamin B12 Urine Creatinine Urine Total Protein Heparin-induced Plt Ab Hep Bs Antibody, Quant Crossmatch 12/29/16 06:52 WBC RBC Hgb Hct MCV MCHC RDW Plt Count Lymph % (Auto) [place] % (Auto) [place] # Baso # Seg Neutrophils % Seg Neuts % (Manual) Lymphocytes % (Manual) Monocytes % (Manual) Nucleated RBC % Seg Neutrophils # Seg Neutrophils # Man Lymphocytes # (Manual) Monocytes # (Manual) Percent Retic Haptoglobin PT INR Fibrinogen D-Dimer POC ABG pH POC ABG pCO2 POC ABG pO2 Sodium Potassium Chloride Carbon Dioxide BUN Creatinine Glucose POC Glucose 115 H Lactic Acid Calcium Phosphorus Magnesium Iron TIBC Transferrin Total Bilirubin Direct Bilirubin AST ALT Alkaline Phosphatase Lactate Dehydrogenase CK-MB (CK-2) Troponin T C-Reactive Protein Total Protein Albumin Triglycerides Cholesterol HDL Cholesterol Vitamin B12 Urine Creatinine Urine Total Protein Heparin-induced Plt Ab Hep Bs Antibody, Quant Crossmatch Chest x-ray: report reviewed (Stable right upper lobe infiltrate, improving right lower lobe atelectasis.), image reviewed
[2016-12-30 07:42] LABS: Calcium 7.6 mg/dL (8.4-10.2); Chloride 105.3 mmol/L (98-107); Potassium 4.6 mmol/L (3.6-5.0)
[2016-12-30] MEDS: NOVOLOG SUB-Q SCH ×4 (08:18→21:53)
--- NOTE | 2016-12-30 08:27 | Cat Scan Report ---
CT CHEST WITHOUT CONTRAST: HISTORY: Persistent right upper lobe infiltrate. TECHNIQUE: Helical CT with sagittal and coronal reformatted images. FINDINGS: Previous chest x-rays were reviewed. CT also demonstrates a persistent wedge shaped right upper lobe opacity measuring 3.7 x 2.7 cm in axial plane. There is trace internal gas. The etiology of this is unclear. This may represent a persistent consolidation, pulmonary infarct or other infectious process. A necrotic mass is difficult to exclude as well. There is also linear scarring in the lower lobes bilaterally. No underlying parenchymal lung disease is appreciated. Small right pleural effusion layers posteriorly and measures up to 1.5 cm. Heart size is within normal limits. No pericardial effusion. There are scattered borderline enlarged lymph nodes in the paratracheal chain and AP window. These are likely reactive in nature. No acute bony abnormality. Left venous catheter terminates in the lower SVC. IMPRESSION: Right upper lobe opacity as described. Linear scarring in the lower lobes. Small right pleural effusion.
[2016-12-30] MEDS: LOPRESSOR PO SCH ×2 (10:55→22:04)
[2016-12-30] MEDS: LOVENOX SUB-Q SCH (10:55)
[2016-12-30] MEDS: PEPCID PO SCH (10:55)
--- NOTE | 2016-12-30 11:38 | Progress Note ---
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 Now on sliding scale insulin as per Primary team (2) Acute kidney failure with tubular necrosis Current Visit: No Status: Acute Plan to address problem: Hemodialysis has been terminated due to renal recovery and vascular catheter has been removed Serum creatinine stable at 2.0 today Monitor I/O's Renally dose medications Obtain daily weights Renal diet To be followed in our office within 1-2 weeks post discharge Office: [address], [facility], [id number] (3) Hypertensive chronic kidney disease Current Visit: Yes Status: Acute Plan to address problem: Continue on anti-hypertensive agent. On Metoprolol. (4) Anemia Current Visit: Yes Status: Acute Qualifiers: Anemia type: A Iron deficiency anemia type: I Vitamin B12 deficiency anemia type: V Folate deficiency anemia type: F Bone marrow failure anemia type: B Hemolytic anemia type: H Other causes of anemia: O Chronic kidney disease stage: C Plan to address problem: On Epogen 20,000 units TIW Subjective Date of service: 12/30/16 Principal diagnosis: Sepsis; Pneumonia; ASHELY on dialysis; Diabetes Interval history: Patient states she is doing ok. States she had Ct scan done today and waiting for results. Objective - Vital Signs Vital signs: Vital Signs - 12hr 12/30/16 12/30/16 12/30/16 01:05 06:07 08:00 Temperature 98.4 F 98.4 F 98.4 F Pulse Rate Pulse Rate [ 93 H 104 H 94 H Right Radial] Respiratory 20 20 20 Rate Blood Pressure 145/89 121/77 135/80 [Right Arm] O2 Sat by Pulse 97 99 99 Oximetry 12/30/16 08:16 Temperature Pulse Rate 104 H Pulse Rate [ Right Radial] Respiratory Rate Blood Pressure [Right Arm] O2 Sat by Pulse Oximetry - General Appearance General appearance: well-developed, appears stated age, other (Seen sitting up at edge of bed) EENT: ATNC, PERRL Neck: no JVD, supple Respiratory: Present: Decreased Breath Sounds Cardiology: tachycardia, S1S2 Gastrointestinal: normoactive bowel sounds Integumentary: warm and dry Neurologic: alert and oriented x3 Musculoskeletal: other (No edema) Psychiatric: cooperative - Lab 12/26/16 Unknown 12/30/16 05:00 Most recent lab results Calcium 7.6 mg/dL (8.4-10.2) L 12/30/16 05:00 Phosphorus 2.60 mg/dL (2.5-4.5) 12/26/16 Unknown Magnesium 1.50 mg/dL (1.7-2.3) L 12/26/16 12:19 Urine Creatinine 239.9 mg/dL (0.1-20.0) H 12/24/16 00:00 Urine Sodium 26 mEq/L 12/04/16 11:25 Urine Total Protein 33 mg/dL (5-11.8) H 12/04/16 11:25
--- NOTE | 2016-12-30 14:49 | Progress Note ---
Assessment and Plan Patient alert, awake. No acute respiratory distress.O2 saturation 98% on 2 litres O2.. Chest xray reported stable right upper lobe infiltrate and improving atelectasis right lower lobe.CAT scan reported right upper lobe Opacity.Repeat chest xray today reported 50% improvement in left upper lobe infiltrate.. - Patient Problems (1) DKA (diabetic ketoacidoses) Current Visit: Yes Status: Acute Qualifiers: Diabetes mellitus type: type 1 Diabetes mellitus complication detail: without coma Diabetes mellitus residential insulin use: D Qualified Code(s): E10.10 - Type 1 diabetes mellitus with ketoacidosis without coma Plan to address problem: Patient is on S/C insulin. Patient alert, awake. Clinicaly appears improving. Management as per primary care. (2) Metabolic encephalopathy Current Visit: Yes Status: Acute Plan to address problem: Patient alert, awake, following commands. Appears encephalopathy improving. Management as per primary care. (3) Pulmonary infiltrate in right lung on chest x-ray Current Visit: Yes Status: Acute Plan to address problem: Patient off the Antibiotics. Patients chest xray stable right upper lobe infiltrate and improving right lower lobe atelectasis. Obtaining CAT scan of chest with out contrast reported right upper lobe opacity. May consider bronchoscopy or percutaneous needle biopsy of chest lesion under CT guidance.. Subjective Date of service: 12/30/16 Principal diagnosis: Sepsis; Pneumonia; ASHELY on dialysis; Diabetes Interval history: Patient alert, awake. No acute respiratory distress.O2 saturation 98%on 2 litres O2. . Chest xray reported stable right upper lobe infiltrate and improving atelectasis right lower lobe.CT of chest reported right upper lobe Opacity.May consider bronchoscopy or percutaneous needle biopsy of chest lesion. Objective Vital Signs - 12hr 12/30/16 12/30/16 12/30/16 06:07 08:00 08:16 Temperature 98.4 F 98.4 F Pulse Rate 104 H Pulse Rate [ 104 H 94 H Right Radial] Respiratory 20 20 Rate Blood Pressure 121/77 135/80 [Right Arm] O2 Sat by Pulse 99 99 Oximetry 12/30/16 12:00 Temperature 98.1 F Pulse Rate Pulse Rate [ 95 H Right Radial] Respiratory 20 Rate Blood Pressure 141/91 [Right Arm] O2 Sat by Pulse 100 Oximetry Constitutional: no acute distress, alert Eyes: non-icteric ENT: oropharynx moist Neck: supple, no lymphadenopathy Effort: normal Ascultation: Right: rhonchi, Bilateral: diminished breath sounds, rales (R>L lungs) Cardiovascular: regular rate and rhythm Gastrointestinal: normoactive bowel sounds, soft, non-tender, non-distended Integumentary: normal Extremities: no cyanosis, no edema, pulses normal, no ischemia or petechiae Neurologic: normal mental status, non-focal exam, pupils equal and round, motor strength normal and Psychiatric: mood appropriate, affect normal CBC and BMP: 12/26/16 Unknown 12/30/16 05:00 ABG, PT/INR, D-dimer: ABG POC ABG pH 7.326 (7.35-7.45) L 12/09/16 12:02 POC ABG pCO2 37.7 (35-45) 12/09/16 12:02 POC ABG pO2 115 (80-105) H 12/09/16 12:02 POC ABG HCO3 19.7 12/09/16 12:02 POC ABG Total CO2 21 12/09/16 12:02 POC ABG O2 Sat 98 12/09/16 12:02 PT/INR, D-dimer PT 15.3 Sec. (12.2-14.9) H 12/08/16 19:00 INR 1.22 (0.87-1.13) H 12/08/16 19:00 D-Dimer 5507.36 ng/mlDDU (0-234) H 12/08/16 19:00 Abnormal lab findings: Abnormal Labs 12/04/16 12/04/16 12/04/16 01:19 01:36 02:21 WBC RBC Hgb Hct MCV MCHC RDW Plt Count Lymph % (Auto) [place] % (Auto) [place] # Baso # Seg Neutrophils % Seg Neuts % (Manual) Lymphocytes % (Manual) Monocytes % (Manual) Nucleated RBC % Seg Neutrophils # Seg Neutrophils # Man Lymphocytes # (Manual) Monocytes # (Manual) Percent Retic Haptoglobin PT INR Fibrinogen D-Dimer POC ABG pH 6.759 L POC ABG pCO2 POC ABG pO2 437 H Sodium Potassium Chloride Carbon Dioxide BUN Creatinine Glucose POC Glucose > 500 H Lactic Acid Calcium Phosphorus 15.70 H Magnesium 4.30 H Iron TIBC Transferrin Total Bilirubin Direct Bilirubin AST ALT Alkaline Phosphatase Lactate Dehydrogenase CK-MB (CK-2) Troponin T C-Reactive Protein Total Protein Albumin Triglycerides Cholesterol HDL Cholesterol Vitamin B12 Urine Creatinine Urine Total Protein Heparin-induced Plt Ab Hep Bs Antibody, Quant Crossmatch 12/04/16 12/04/16 12/04/16 03:55 04:00 05:11 WBC RBC Hgb Hct MCV MCHC RDW Plt Count Lymph % (Auto) [place] % (Auto) [place] # Baso # Seg Neutrophils % Seg Neuts % (Manual) Lymphocytes % (Manual) Monocytes % (Manual) Nucleated RBC % Seg Neutrophils # Seg Neutrophils # Man Lymphocytes # (Manual) Monocytes # (Manual) Percent Retic Haptoglobin PT INR Fibrinogen D-Dimer POC ABG pH POC ABG pCO2 POC ABG pO2 Sodium Potassium Chloride 91.4 L Carbon Dioxide 8 L* BUN 55 H Creatinine 2.8 H Glucose 1610 H* POC Glucose > 500 H > 500 H Lactic Acid Calcium Phosphorus Magnesium Iron TIBC Transferrin Total Bilirubin Direct Bilirubin AST ALT Alkaline Phosphatase Lactate Dehydrogenase CK-MB (CK-2) Troponin T C-Reactive Protein Total Protein Albumin Triglycerides Cholesterol HDL Cholesterol Vitamin B12 Urine Creatinine Urine Total Protein Heparin-induced Plt Ab Hep Bs Antibody, Quant Crossmatch 12/04/16 12/04/16 12/04/16 05:40 05:54 06:58 WBC RBC Hgb Hct MCV MCHC RDW Plt Count Lymph % (Auto) [place] % (Auto) [place] # Baso # Seg Neutrophils % Seg Neuts % (Manual) Lymphocytes % (Manual) Monocytes % (Manual) Nucleated RBC % Seg Neutrophils # Seg Neutrophils # Man Lymphocytes # (Manual) Monocytes # (Manual) Percent Retic Haptoglobin PT INR Fibrinogen D-Dimer POC ABG pH 7.154 L POC ABG pCO2 27.5 L POC ABG pO2 111 H Sodium Potassium Chloride Carbon Dioxide BUN Creatinine Glucose POC Glucose > 500 H > 500 H Lactic Acid Calcium Phosphorus Magnesium Iron TIBC Transferrin Total Bilirubin Direct Bilirubin AST ALT Alkaline Phosphatase Lactate Dehydrogenase CK-MB (CK-2) Troponin T C-Reactive Protein Total Protein Albumin Triglycerides Cholesterol HDL Cholesterol Vitamin B12 Urine Creatinine Urine Total Protein Heparin-induced Plt Ab Hep Bs Antibody, Quant Crossmatch 12/04/16 12/04/16 12/04/16 07:49 07:55 07:55 WBC RBC Hgb Hct MCV MCHC RDW Plt Count Lymph % (Auto) [place] % (Auto) [place] # Baso # Seg Neutrophils % Seg Neuts % (Manual) Lymphocytes % (Manual) Monocytes % (Manual) Nucleated RBC % Seg Neutrophils # Seg Neutrophils # Man Lymphocytes # (Manual) Monocytes # (Manual) Percent Retic Haptoglobin PT INR Fibrinogen D-Dimer POC ABG pH POC ABG pCO2 POC ABG pO2 Sodium Potassium 3.3 L Chloride Carbon Dioxide 9 L* BUN 53 H Creatinine 2.9 H Glucose 1229 H* POC Glucose > 500 H Lactic Acid Calcium Phosphorus Magnesium Iron TIBC Transferrin Total Bilirubin Direct Bilirubin AST ALT Alkaline Phosphatase Lactate Dehydrogenase CK-MB (CK-2) Troponin T 0.111 H* D C-Reactive Protein Total Protein Albumin Triglycerides 570 H Cholesterol 221 H HDL Cholesterol 37 L Vitamin B12 Urine Creatinine Urine Total Protein Heparin-induced Plt Ab Hep Bs Antibody, Quant Crossmatch 12/04/16 12/04/16 12/04/16 07:55 09:55 09:55 WBC RBC 2.90 L Hgb 8.5 L Hct 30.2 L D MCV 105 H D MCHC 28 L RDW 19.2 H Plt Count Lymph % (Auto) [place] % (Auto) [place] # Baso # Seg Neutrophils % Seg Neuts % (Manual) Lymphocytes % (Manual) 11.0 L Monocytes % (Manual) Nucleated RBC % Seg Neutrophils # Seg Neutrophils # Man Lymphocytes # (Manual) 0.6 L Monocytes # (Manual) Percent Retic Haptoglobin PT INR Fibrinogen D-Dimer POC ABG pH POC ABG pCO2 POC ABG pO2 Sodium Potassium 3.1 L Chloride Carbon Dioxide 7 L* BUN 51 H Creatinine 3.2 H Glucose 969 H* POC Glucose Lactic Acid Calcium 10.4 H D Phosphorus Magnesium Iron TIBC Transferrin Total Bilirubin Direct Bilirubin AST ALT Alkaline Phosphatase Lactate Dehydrogenase CK-MB (CK-2) 4.6 H Troponin T 0.140 H* D C-Reactive Protein Total Protein Albumin Triglycerides Cholesterol HDL Cholesterol Vitamin B12 Urine Creatinine Urine Total Protein Heparin-induced Plt Ab Hep Bs Antibody, Quant Crossmatch 12/04/16 12/04/16 12/04/16 09:55 10:37 11:25 WBC RBC Hgb Hct MCV MCHC RDW Plt Count Lymph % (Auto) [place] % (Auto) [place] # Baso # Seg Neutrophils % Seg Neuts % (Manual) Lymphocytes % (Manual) Monocytes % (Manual) Nucleated RBC % Seg Neutrophils # Seg Neutrophils # Man Lymphocytes # (Manual) Monocytes # (Manual) Percent Retic Haptoglobin PT INR Fibrinogen D-Dimer POC ABG pH 7.215 L POC ABG pCO2 18.8 L POC ABG pO2 193 H Sodium Potassium Chloride Carbon Dioxide BUN Creatinine Glucose POC Glucose Lactic Acid Calcium Phosphorus Magnesium 3.70 H Iron TIBC Transferrin Total Bilirubin Direct Bilirubin AST ALT Alkaline Phosphatase Lactate Dehydrogenase CK-MB (CK-2) Troponin T C-Reactive Protein Total Protein Albumin Triglycerides Cholesterol HDL Cholesterol Vitamin B12 Urine Creatinine 29.5 H Urine Total Protein 33 H Heparin-induced Plt Ab Hep Bs Antibody, Quant Crossmatch 12/04/16 12/04/16 12/04/16 12:00 12:48 13:00 WBC RBC Hgb Hct MCV MCHC RDW Plt Count Lymph % (Auto) [place] % (Auto) [place] # Baso # Seg Neutrophils % Seg Neuts % (Manual) Lymphocytes % (Manual) Monocytes % (Manual) Nucleated RBC % Seg Neutrophils # Seg Neutrophils # Man Lymphocytes # (Manual) Monocytes # (Manual) Percent Retic Haptoglobin PT INR Fibrinogen D-Dimer POC ABG pH POC ABG pCO2 POC ABG pO2 Sodium 149 H 150 H Potassium 3.2 L 3.2 L Chloride 109.1 H Carbon Dioxide 8 L* 8 L* BUN 52 H 49 H Creatinine 3.4 H 3.1 H Glucose 723 H* 574 H* POC Glucose Lactic Acid 18.80 H* Calcium Phosphorus Magnesium Iron TIBC Transferrin Total Bilirubin Direct Bilirubin AST ALT Alkaline Phosphatase Lactate Dehydrogenase CK-MB (CK-2) Troponin T C-Reactive Protein Total Protein Albumin Triglycerides Cholesterol HDL Cholesterol Vitamin B12 Urine Creatinine Urine Total Protein Heparin-induced Plt Ab Hep Bs Antibody, Quant Crossmatch 12/04/16 12/04/16 12/04/16 13:01 14:41 16:06 WBC RBC Hgb Hct MCV MCHC RDW Plt Count Lymph % (Auto) [place] % (Auto) [place] # Baso # Seg Neutrophils % Seg Neuts % (Manual) Lymphocytes % (Manual) Monocytes % (Manual) Nucleated RBC % Seg Neutrophils # Seg Neutrophils # Man Lymphocytes # (Manual) Monocytes # (Manual) Percent Retic Haptoglobin PT INR Fibrinogen D-Dimer POC ABG pH POC ABG pCO2 POC ABG pO2 Sodium 151 H Potassium 3.2 L Chloride 108.1 H Carbon Dioxide 10 L BUN 49 H Creatinine 3.0 H Glucose 383 H POC Glucose 292 H Lactic Acid Calcium Phosphorus Magnesium Iron TIBC Transferrin Total Bilirubin Direct Bilirubin AST ALT Alkaline Phosphatase Lactate Dehydrogenase CK-MB (CK-2) Troponin T C-Reactive Protein 3.50 H Total Protein Albumin Triglycerides Cholesterol HDL Cholesterol Vitamin B12 Urine Creatinine Urine Total Protein Heparin-induced Plt Ab Hep Bs Antibody, Quant Crossmatch 12/04/16 12/04/16 12/04/16 17:15 17:25 18:07 WBC RBC Hgb Hct MCV MCHC RDW Plt Count Lymph % (Auto) [place] % (Auto) [place] # Baso # Seg Neutrophils % Seg Neuts % (Manual) Lymphocytes % (Manual) Monocytes % (Manual) Nucleated RBC % Seg Neutrophils # Seg Neutrophils # Man Lymphocytes # (Manual) Monocytes # (Manual) Percent Retic Haptoglobin PT INR Fibrinogen D-Dimer POC ABG pH 7.255 L POC ABG pCO2 16.9 L POC ABG pO2 169 H Sodium Potassium Chloride Carbon Dioxide BUN Creatinine Glucose POC Glucose 246 H Lactic Acid 18.50 H* Calcium Phosphorus Magnesium Iron TIBC Transferrin Total Bilirubin Direct Bilirubin AST ALT Alkaline Phosphatase Lactate Dehydrogenase CK-MB (CK-2) Troponin T C-Reactive Protein Total Protein Albumin Triglycerides Cholesterol HDL Cholesterol Vitamin B12 Urine Creatinine Urine Total Protein Heparin-induced Plt Ab Hep Bs Antibody, Quant Crossmatch 12/04/16 12/04/16 12/04/16 19:34 20:31 21:15 WBC RBC Hgb Hct MCV MCHC RDW Plt Count Lymph % (Auto) [place] % (Auto) [place] # Baso # Seg Neutrophils % Seg Neuts % (Manual) Lymphocytes % (Manual) Monocytes % (Manual) Nucleated RBC % Seg Neutrophils # Seg Neutrophils # Man Lymphocytes # (Manual) Monocytes # (Manual) Percent Retic Haptoglobin PT INR Fibrinogen D-Dimer POC ABG pH POC ABG pCO2 POC ABG pO2 Sodium Potassium Chloride Carbon Dioxide BUN Creatinine Glucose POC Glucose 189 H 126 H 139 H Lactic Acid Calcium Phosphorus Magnesium Iron TIBC Transferrin Total Bilirubin Direct Bilirubin AST ALT Alkaline Phosphatase Lactate Dehydrogenase CK-MB (CK-2) Troponin T C-Reactive Protein Total Protein Albumin Triglycerides Cholesterol HDL Cholesterol Vitamin B12 Urine Creatinine Urine Total Protein Heparin-induced Plt Ab Hep Bs Antibody, Quant Crossmatch 12/04/16 12/04/16 12/04/16 21:25 22:37 23:35 WBC RBC Hgb Hct MCV MCHC RDW Plt Count Lymph % (Auto) [place] % (Auto) [place] # Baso # Seg Neutrophils % Seg Neuts % (Manual) Lymphocytes % (Manual) Monocytes % (Manual) Nucleated RBC % Seg Neutrophils # Seg Neutrophils # Man Lymphocytes # (Manual) Monocytes # (Manual) Percent Retic Haptoglobin PT INR Fibrinogen D-Dimer POC ABG pH 7.294 L POC ABG pCO2 16.7 L POC ABG pO2 169 H Sodium Potassium Chloride Carbon Dioxide BUN Creatinine Glucose POC Glucose 131 H 106 H Lactic Acid Calcium Phosphorus Magnesium Iron TIBC Transferrin Total Bilirubin Direct Bilirubin AST ALT Alkaline Phosphatase Lactate Dehydrogenase CK-MB (CK-2) Troponin T C-Reactive Protein Total Protein Albumin Triglycerides Cholesterol HDL Cholesterol Vitamin B12 Urine Creatinine Urine Total Protein Heparin-induced Plt Ab Hep Bs Antibody, Quant Crossmatch 12/05/16 12/05/16 12/05/16 02:40 02:50 02:50 WBC RBC Hgb Hct MCV MCHC RDW Plt Count Lymph % (Auto) [place] % (Auto) [place] # Baso # Seg Neutrophils % Seg Neuts % (Manual) Lymphocytes % (Manual) Monocytes % (Manual) Nucleated RBC % Seg Neutrophils # Seg Neutrophils # Man Lymphocytes # (Manual) Monocytes # (Manual) Percent Retic Haptoglobin PT INR Fibrinogen D-Dimer POC ABG pH POC ABG pCO2 POC ABG pO2 Sodium 151 H Potassium Chloride 113.8 H Carbon Dioxide 12 L BUN 46 H Creatinine 3.2 H Glucose 165 H POC Glucose 109 H Lactic Acid 9.80 H* Calcium 8.3 L Phosphorus Magnesium Iron TIBC Transferrin Total Bilirubin Direct Bilirubin AST ALT Alkaline Phosphatase Lactate Dehydrogenase CK-MB (CK-2) Troponin T C-Reactive Protein Total Protein Albumin Triglycerides Cholesterol HDL Cholesterol Vitamin B12 Urine Creatinine Urine Total Protein Heparin-induced Plt Ab Hep Bs Antibody, Quant Crossmatch 12/05/16 12/05/16 12/05/16 04:01 04:30 04:30 WBC 19.1 H RBC 2.91 L Hgb 8.0 L Hct 25.4 L MCV MCHC RDW 17.8 H Plt Count Lymph % (Auto) [place] % (Auto) [place] # Baso # Seg Neutrophils % Seg Neuts % (Manual) 17.0 L Lymphocytes % (Manual) 7.0 L Monocytes % (Manual) Nucleated RBC % 3.0 H Seg Neutrophils # Seg Neutrophils # Man Lymphocytes # (Manual) Monocytes # (Manual) Percent Retic Haptoglobin PT INR Fibrinogen D-Dimer POC ABG pH POC ABG pCO2 POC ABG pO2 Sodium 152 H Potassium Chloride 113.5 H Carbon Dioxide 12 L BUN 47 H Creatinine 3.2 H Glucose 133 H POC Glucose 179 H Lactic Acid Calcium 8.3 L Phosphorus 1.00 L D Magnesium Iron TIBC Transferrin Total Bilirubin Direct Bilirubin AST ALT Alkaline Phosphatase Lactate Dehydrogenase CK-MB (CK-2) Troponin T C-Reactive Protein Total Protein Albumin Triglycerides Cholesterol HDL Cholesterol Vitamin B12 Urine Creatinine Urine Total Protein Heparin-induced Plt Ab Hep Bs Antibody, Quant Crossmatch 12/05/16 12/05/16 12/05/16 05:32 08:01 08:48 WBC RBC Hgb Hct MCV MCHC RDW Plt Count Lymph % (Auto) [place] % (Auto) [place] # Baso # Seg Neutrophils % Seg Neuts % (Manual) Lymphocytes % (Manual) Monocytes % (Manual) Nucleated RBC % Seg Neutrophils # Seg Neutrophils # Man Lymphocytes # (Manual) Monocytes # (Manual) Percent Retic Haptoglobin PT INR Fibrinogen D-Dimer POC ABG pH POC ABG pCO2 17.6 L POC ABG pO2 62 L Sodium Potassium Chloride Carbon Dioxide BUN Creatinine Glucose POC Glucose 126 H 130 H Lactic Acid Calcium Phosphorus Magnesium Iron TIBC Transferrin Total Bilirubin Direct Bilirubin AST ALT Alkaline Phosphatase Lactate Dehydrogenase CK-MB (CK-2) Troponin T C-Reactive Protein Total Protein Albumin Triglycerides Cholesterol HDL Cholesterol Vitamin B12 Urine Creatinine Urine Total Protein Heparin-induced Plt Ab Hep Bs Antibody, Quant Crossmatch 12/05/16 12/05/16 12/05/16 08:54 12:01 15:15 WBC RBC Hgb Hct MCV MCHC RDW Plt Count Lymph % (Auto) [place] % (Auto) [place] # Baso # Seg Neutrophils % Seg Neuts % (Manual) Lymphocytes % (Manual) Monocytes % (Manual) Nucleated RBC % Seg Neutrophils # Seg Neutrophils # Man Lymphocytes # (Manual) Monocytes # (Manual) Percent Retic Haptoglobin PT INR Fibrinogen D-Dimer POC ABG pH POC ABG pCO2 POC ABG pO2 Sodium Potassium Chloride Carbon Dioxide BUN Creatinine Glucose POC Glucose 157 H 117 H 166 H Lactic Acid Calcium Phosphorus Magnesium Iron TIBC Transferrin Total Bilirubin Direct Bilirubin AST ALT Alkaline Phosphatase Lactate Dehydrogenase CK-MB (CK-2) Troponin T C-Reactive Protein Total Protein Albumin Triglycerides Cholesterol HDL Cholesterol Vitamin B12 Urine Creatinine Urine Total Protein Heparin-induced Plt Ab Hep Bs Antibody, Quant Crossmatch 12/05/16 12/05/16 12/05/16 16:10 16:55 17:08 WBC RBC Hgb Hct MCV MCHC RDW Plt Count Lymph % (Auto) [place] % (Auto) [place] # Baso # Seg Neutrophils % Seg Neuts % (Manual) Lymphocytes % (Manual) Monocytes % (Manual) Nucleated RBC % Seg Neutrophils # Seg Neutrophils # Man Lymphocytes # (Manual) Monocytes # (Manual) Percent Retic Haptoglobin PT INR Fibrinogen D-Dimer POC ABG pH POC ABG pCO2 POC ABG pO2 Sodium Potassium Chloride Carbon Dioxide BUN Creatinine Glucose POC Glucose 178 H 169 H Lactic Acid Calcium Phosphorus 5.00 H D Magnesium Iron TIBC Transferrin Total Bilirubin Direct Bilirubin AST ALT Alkaline Phosphatase Lactate Dehydrogenase CK-MB (CK-2) Troponin T C-Reactive Protein Total Protein Albumin Triglycerides Cholesterol HDL Cholesterol Vitamin B12 Urine Creatinine Urine Total Protein Heparin-induced Plt Ab Hep Bs Antibody, Quant Crossmatch 12/05/16 12/05/16 12/05/16 18:08 18:51 20:04 WBC RBC Hgb Hct MCV MCHC RDW Plt Count Lymph % (Auto) [place] % (Auto) [place] # Baso # Seg Neutrophils % Seg Neuts % (Manual) Lymphocytes % (Manual) Monocytes % (Manual) Nucleated RBC % Seg Neutrophils # Seg Neutrophils # Man Lymphocytes # (Manual) Monocytes # (Manual) Percent Retic Haptoglobin PT INR Fibrinogen D-Dimer POC ABG pH POC ABG pCO2 POC ABG pO2 Sodium Potassium Chloride Carbon Dioxide BUN Creatinine Glucose POC Glucose 147 H 113 H 64 L Lactic Acid Calcium Phosphorus Magnesium Iron TIBC Transferrin Total Bilirubin Direct Bilirubin AST ALT Alkaline Phosphatase Lactate Dehydrogenase CK-MB (CK-2) Troponin T C-Reactive Protein Total Protein Albumin Triglycerides Cholesterol HDL Cholesterol Vitamin B12 Urine Creatinine Urine Total Protein Heparin-induced Plt Ab Hep Bs Antibody, Quant Crossmatch 12/05/16 12/05/16 12/05/16 21:34 22:08 23:19 WBC RBC Hgb Hct MCV MCHC RDW Plt Count Lymph % (Auto) [place] % (Auto) [place] # Baso # Seg Neutrophils % Seg Neuts % (Manual) Lymphocytes % (Manual) Monocytes % (Manual) Nucleated RBC % Seg Neutrophils # Seg Neutrophils # Man Lymphocytes # (Manual) Monocytes # (Manual) Percent Retic Haptoglobin PT INR Fibrinogen D-Dimer POC ABG pH 7.303 L POC ABG pCO2 18.3 L POC ABG pO2 73 L Sodium Potassium Chloride Carbon Dioxide BUN Creatinine Glucose POC Glucose 141 H 200 H Lactic Acid Calcium Phosphorus Magnesium Iron TIBC Transferrin Total Bilirubin Direct Bilirubin AST ALT Alkaline Phosphatase Lactate Dehydrogenase CK-MB (CK-2) Troponin T C-Reactive Protein Total Protein Albumin Triglycerides Cholesterol HDL Cholesterol Vitamin B12 Urine Creatinine Urine Total Protein Heparin-induced Plt Ab Hep Bs Antibody, Quant Crossmatch 12/06/16 12/06/16 12/06/16 00:01 01:09 02:00 WBC RBC Hgb Hct MCV MCHC RDW Plt Count Lymph % (Auto) [place] % (Auto) [place] # Baso # Seg Neutrophils % Seg Neuts % (Manual) Lymphocytes % (Manual) Monocytes % (Manual) Nucleated RBC % Seg Neutrophils # Seg Neutrophils # Man Lymphocytes # (Manual) Monocytes # (Manual) Percent Retic Haptoglobin PT INR Fibrinogen D-Dimer POC ABG pH POC ABG pCO2 POC ABG pO2 Sodium Potassium Chloride Carbon Dioxide BUN Creatinine Glucose POC Glucose 211 H 116 H 57 L Lactic Acid Calcium Phosphorus Magnesium Iron TIBC Transferrin Total Bilirubin Direct Bilirubin AST ALT Alkaline Phosphatase Lactate Dehydrogenase CK-MB (CK-2) Troponin T C-Reactive Protein Total Protein Albumin Triglycerides Cholesterol HDL Cholesterol Vitamin B12 Urine Creatinine Urine Total Protein Heparin-induced Plt Ab Hep Bs Antibody, Quant Crossmatch 12/06/16 12/06/16 12/06/16 04:14 04:50 04:50 WBC RBC 2.68 L Hgb 7.6 L Hct 23.2 L MCV MCHC RDW 18.9 H Plt Count Lymph % (Auto) [place] % (Auto) [place] # Baso # Seg Neutrophils % Seg Neuts % (Manual) 32.0 L Lymphocytes % (Manual) Monocytes % (Manual) Nucleated RBC % 3.0 H Seg Neutrophils # Seg Neutrophils # Man Lymphocytes # (Manual) 0.9 L Monocytes # (Manual) Percent Retic Haptoglobin PT INR Fibrinogen D-Dimer POC ABG pH POC ABG pCO2 POC ABG pO2 Sodium Potassium 5.8 H D Chloride 111.5 H Carbon Dioxide 11 L BUN 52 H Creatinine 3.8 H Glucose 186 H POC Glucose 133 H Lactic Acid Calcium 6.5 L D Phosphorus 5.80 H Magnesium Iron TIBC Transferrin Total Bilirubin Direct Bilirubin AST ALT Alkaline Phosphatase Lactate Dehydrogenase CK-MB (CK-2) Troponin T C-Reactive Protein Total Protein Albumin Triglycerides Cholesterol HDL Cholesterol Vitamin B12 Urine Creatinine Urine Total Protein Heparin-induced Plt Ab Hep Bs Antibody, Quant Crossmatch 12/06/16 12/06/16 12/06/16 04:50 05:04 05:07 WBC RBC Hgb Hct MCV MCHC RDW Plt Count Lymph % (Auto) [place] % (Auto) [place] # Baso # Seg Neutrophils % Seg Neuts % (Manual) Lymphocytes % (Manual) Monocytes % (Manual) Nucleated RBC % Seg Neutrophils # Seg Neutrophils # Man Lymphocytes # (Manual) Monocytes # (Manual) Percent Retic Haptoglobin PT INR Fibrinogen D-Dimer POC ABG pH POC ABG pCO2 13.0 L POC ABG pO2 111 H Sodium Potassium Chloride Carbon Dioxide BUN Creatinine Glucose POC Glucose 127 H Lactic Acid 6.50 H* Calcium Phosphorus Magnesium Iron TIBC Transferrin Total Bilirubin Direct Bilirubin AST ALT Alkaline Phosphatase Lactate Dehydrogenase CK-MB (CK-2) Troponin T C-Reactive Protein Total Protein Albumin Triglycerides Cholesterol HDL Cholesterol Vitamin B12 Urine Creatinine Urine Total Protein Heparin-induced Plt Ab Hep Bs Antibody, Quant Crossmatch 12/06/16 12/06/16 12/06/16 06:10 06:54 07:46 WBC RBC Hgb Hct MCV MCHC RDW Plt Count Lymph % (Auto) [place] % (Auto) [place] # Baso # Seg Neutrophils % Seg Neuts % (Manual) Lymphocytes % (Manual) Monocytes % (Manual) Nucleated RBC % Seg Neutrophils # Seg Neutrophils # Man Lymphocytes # (Manual) Monocytes # (Manual) Percent Retic Haptoglobin PT INR Fibrinogen D-Dimer POC ABG pH POC ABG pCO2 POC ABG pO2 Sodium Potassium Chloride Carbon Dioxide BUN Creatinine Glucose POC Glucose 219 H 237 H 158 H Lactic Acid Calcium Phosphorus Magnesium Iron TIBC Transferrin Total Bilirubin Direct Bilirubin AST ALT Alkaline Phosphatase Lactate Dehydrogenase CK-MB (CK-2) Troponin T C-Reactive Protein Total Protein Albumin Triglycerides Cholesterol HDL Cholesterol Vitamin B12 Urine Creatinine Urine Total Protein Heparin-induced Plt Ab Hep Bs Antibody, Quant Crossmatch 12/06/16 12/06/16 12/06/16 08:55 10:27 11:58 WBC RBC Hgb Hct MCV MCHC RDW Plt Count Lymph % (Auto) [place] % (Auto) [place] # Baso # Seg Neutrophils % Seg Neuts % (Manual) Lymphocytes % (Manual) Monocytes % (Manual) Nucleated RBC % Seg Neutrophils # Seg Neutrophils # Man Lymphocytes # (Manual) Monocytes # (Manual) Percent Retic Haptoglobin PT INR Fibrinogen D-Dimer POC ABG pH POC ABG pCO2 POC ABG pO2 Sodium Potassium Chloride Carbon Dioxide BUN Creatinine Glucose POC Glucose 40 L 128 H 144 H Lactic Acid Calcium Phosphorus Magnesium Iron TIBC Transferrin Total Bilirubin Direct Bilirubin AST ALT Alkaline Phosphatase Lactate Dehydrogenase CK-MB (CK-2) Troponin T C-Reactive Protein Total Protein Albumin Triglycerides Cholesterol HDL Cholesterol Vitamin B12 Urine Creatinine Urine Total Protein Heparin-induced Plt Ab Hep Bs Antibody, Quant Crossmatch 12/06/16 12/06/16 12/06/16 18:14 19:00 19:06 WBC RBC Hgb Hct MCV MCHC RDW Plt Count Lymph % (Auto) [place] % (Auto) [place] # Baso # Seg Neutrophils % Seg Neuts % (Manual) Lymphocytes % (Manual) Monocytes % (Manual) Nucleated RBC % Seg Neutrophils # Seg Neutrophils # Man Lymphocytes # (Manual) Monocytes # (Manual) Percent Retic Haptoglobin PT INR Fibrinogen D-Dimer POC ABG pH POC ABG pCO2 POC ABG pO2 Sodium 149 H Potassium 5.6 H Chloride 115.9 H Carbon Dioxide 13 L BUN 56 H Creatinine 4.3 H Glucose 124 H POC Glucose 55 L 148 H Lactic Acid Calcium 6.0 L Phosphorus Magnesium Iron TIBC Transferrin Total Bilirubin Direct Bilirubin AST ALT Alkaline Phosphatase Lactate Dehydrogenase CK-MB (CK-2) Troponin T C-Reactive Protein Total Protein Albumin Triglycerides Cholesterol HDL Cholesterol Vitamin B12 Urine Creatinine Urine Total Protein Heparin-induced Plt Ab Hep Bs Antibody, Quant Crossmatch 12/06/16 12/06/16 12/07/16 21:24 21:51 02:32 WBC RBC Hgb Hct MCV MCHC RDW Plt Count Lymph % (Auto) [place] % (Auto) [place] # Baso # Seg Neutrophils % Seg Neuts % (Manual) Lymphocytes % (Manual) Monocytes % (Manual) Nucleated RBC % Seg Neutrophils # Seg Neutrophils # Man Lymphocytes # (Manual) Monocytes # (Manual) Percent Retic Haptoglobin PT INR Fibrinogen D-Dimer POC ABG pH POC ABG pCO2 17.0 L POC ABG pO2 142 H Sodium Potassium Chloride Carbon Dioxide BUN Creatinine Glucose POC Glucose 107 H 175 H Lactic Acid Calcium Phosphorus Magnesium Iron TIBC Transferrin Total Bilirubin Direct Bilirubin AST ALT Alkaline Phosphatase Lactate Dehydrogenase CK-MB (CK-2) Troponin T C-Reactive Protein Total Protein Albumin Triglycerides Cholesterol HDL Cholesterol Vitamin B12 Urine Creatinine Urine Total Protein Heparin-induced Plt Ab Hep Bs Antibody, Quant Crossmatch 12/07/16 12/07/16 12/07/16 05:01 05:25 06:00 WBC RBC 2.52 L Hgb 7.1 L Hct 22.1 L MCV MCHC RDW 19.3 H Plt Count 90 L Lymph % (Auto) [place] % (Auto) [place] # Baso # Seg Neutrophils % Seg Neuts % (Manual) 75.0 H Lymphocytes % (Manual) 11.0 L Monocytes % (Manual) Nucleated RBC % Seg Neutrophils # Seg Neutrophils # Man Lymphocytes # (Manual) 0.7 L Monocytes # (Manual) Percent Retic Haptoglobin PT INR Fibrinogen D-Dimer POC ABG pH 7.300 L POC ABG pCO2 17.1 L POC ABG pO2 140 H Sodium Potassium Chloride Carbon Dioxide BUN Creatinine Glucose POC Glucose 279 H Lactic Acid Calcium Phosphorus Magnesium Iron TIBC Transferrin Total Bilirubin Direct Bilirubin AST ALT Alkaline Phosphatase Lactate Dehydrogenase CK-MB (CK-2) Troponin T C-Reactive Protein Total Protein Albumin Triglycerides Cholesterol HDL Cholesterol Vitamin B12 Urine Creatinine Urine Total Protein Heparin-induced Plt Ab Hep Bs Antibody, Quant Crossmatch 12/07/16 12/07/16 12/07/16 06:00 06:00 07:30 WBC RBC Hgb Hct MCV MCHC RDW Plt Count Lymph % (Auto) [place] % (Auto) [place] # Baso # Seg Neutrophils % Seg Neuts % (Manual) Lymphocytes % (Manual) Monocytes % (Manual) Nucleated RBC % Seg Neutrophils # Seg Neutrophils # Man Lymphocytes # (Manual) Monocytes # (Manual) Percent Retic Haptoglobin PT INR Fibrinogen D-Dimer POC ABG pH POC ABG pCO2 POC ABG pO2 Sodium Potassium Chloride Carbon Dioxide BUN Creatinine Glucose POC Glucose Lactic Acid 6.90 H* Calcium Phosphorus 6.80 H Magnesium Iron TIBC Transferrin Total Bilirubin Direct Bilirubin AST ALT Alkaline Phosphatase Lactate Dehydrogenase CK-MB (CK-2) Troponin T C-Reactive Protein 39.40 H Total Protein Albumin Triglycerides Cholesterol HDL Cholesterol Vitamin B12 Urine Creatinine Urine Total Protein Heparin-induced Plt Ab Hep Bs Antibody, Quant Crossmatch 12/07/16 12/07/16 12/07/16 08:40 10:53 14:31 WBC RBC Hgb Hct MCV MCHC RDW Plt Count Lymph % (Auto) [place] % (Auto) [place] # Baso # Seg Neutrophils % Seg Neuts % (Manual) Lymphocytes % (Manual) Monocytes % (Manual) Nucleated RBC % Seg Neutrophils # Seg Neutrophils # Man Lymphocytes # (Manual) Monocytes # (Manual) Percent Retic Haptoglobin PT INR Fibrinogen D-Dimer POC ABG pH POC ABG pCO2 POC ABG pO2 Sodium Potassium 7.0 H* D Chloride 112.4 H Carbon Dioxide 8 L* BUN 61 H Creatinine 5.1 H Glucose 213 H POC Glucose 353 H 52 L Lactic Acid Calcium 5.8 L* Phosphorus Magnesium Iron TIBC Transferrin Total Bilirubin Direct Bilirubin AST ALT Alkaline Phosphatase Lactate Dehydrogenase CK-MB (CK-2) Troponin T C-Reactive Protein Total Protein Albumin Triglycerides Cholesterol HDL Cholesterol Vitamin B12 Urine Creatinine Urine Total Protein Heparin-induced Plt Ab Hep Bs Antibody, Quant Crossmatch 12/07/16 12/07/16 12/07/16 14:45 15:33 16:22 WBC RBC Hgb Hct MCV MCHC RDW Plt Count Lymph % (Auto) [place] % (Auto) [place] # Baso # Seg Neutrophils % Seg Neuts % (Manual) Lymphocytes % (Manual) Monocytes % (Manual) Nucleated RBC % Seg Neutrophils # Seg Neutrophils # Man Lymphocytes # (Manual) Monocytes # (Manual) Percent Retic Haptoglobin PT 17.5 H INR 1.44 H Fibrinogen D-Dimer POC ABG pH POC ABG pCO2 POC ABG pO2 Sodium Potassium Chloride Carbon Dioxide BUN Creatinine Glucose POC Glucose < 40 L 118 H Lactic Acid Calcium Phosphorus Magnesium Iron TIBC Transferrin Total Bilirubin Direct Bilirubin AST ALT Alkaline Phosphatase Lactate Dehydrogenase CK-MB (CK-2) Troponin T C-Reactive Protein Total Protein Albumin Triglycerides Cholesterol HDL Cholesterol Vitamin B12 Urine Creatinine Urine Total Protein Heparin-induced Plt Ab Hep Bs Antibody, Quant Crossmatch 12/07/16 12/07/16 12/07/16 21:35 21:35 21:58 WBC RBC Hgb Hct MCV MCHC RDW Plt Count Lymph % (Auto) [place] % (Auto) [place] # Baso # Seg Neutrophils % Seg Neuts % (Manual) Lymphocytes % (Manual) Monocytes % (Manual) Nucleated RBC % Seg Neutrophils # Seg Neutrophils # Man Lymphocytes # (Manual) Monocytes # (Manual) Percent Retic Haptoglobin PT INR Fibrinogen D-Dimer POC ABG pH POC ABG pCO2 POC ABG pO2 Sodium 150 H Potassium 3.3 L D Chloride 111.4 H Carbon Dioxide 21 L D BUN 22 H Creatinine 2.6 H Glucose 23 L* POC Glucose < 40 L Lactic Acid Calcium Phosphorus Magnesium Iron TIBC Transferrin Total Bilirubin 1.40 H Direct Bilirubin 0.9 H AST 94 H ALT 142 H Alkaline Phosphatase 249 H Lactate Dehydrogenase CK-MB (CK-2) Troponin T C-Reactive Protein Total Protein 4.6 L D Albumin 2.1 L Triglycerides Cholesterol HDL Cholesterol Vitamin B12 Urine Creatinine Urine Total Protein Heparin-induced Plt Ab Hep Bs Antibody, Quant Crossmatch 12/07/16 12/08/16 12/08/16 23:31 04:43 04:50 WBC RBC 2.35 L Hgb 6.6 L Hct 20.1 L MCV MCHC RDW 17.8 H Plt Count 48 L Lymph % (Auto) [place] % (Auto) [place] # Baso # Seg Neutrophils % Seg Neuts % (Manual) Lymphocytes % (Manual) Monocytes % (Manual) Nucleated RBC % Seg Neutrophils # Seg Neutrophils # Man Lymphocytes # (Manual) 0.9 L Monocytes # (Manual) Percent Retic Haptoglobin PT INR Fibrinogen D-Dimer POC ABG pH 7.586 H POC ABG pCO2 17.7 L POC ABG pO2 150 H Sodium Potassium Chloride Carbon Dioxide BUN Creatinine Glucose POC Glucose 42 L Lactic Acid Calcium Phosphorus Magnesium Iron TIBC Transferrin Total Bilirubin Direct Bilirubin AST ALT Alkaline Phosphatase Lactate Dehydrogenase CK-MB (CK-2) Troponin T C-Reactive Protein Total Protein Albumin Triglycerides Cholesterol HDL Cholesterol Vitamin B12 Urine Creatinine Urine Total Protein Heparin-induced Plt Ab Hep Bs Antibody, Quant Crossmatch 12/08/16 12/08/16 12/08/16 04:50 04:59 06:54 WBC RBC Hgb Hct MCV MCHC RDW Plt Count Lymph % (Auto) [place] % (Auto) [place] # Baso # Seg Neutrophils % Seg Neuts % (Manual) Lymphocytes % (Manual) Monocytes % (Manual) Nucleated RBC % Seg Neutrophils # Seg Neutrophils # Man Lymphocytes # (Manual) Monocytes # (Manual) Percent Retic Haptoglobin PT INR Fibrinogen D-Dimer POC ABG pH POC ABG pCO2 POC ABG pO2 Sodium 149 H Potassium 3.2 L Chloride 111.8 H Carbon Dioxide 17 L BUN 26 H Creatinine 3.4 H Glucose 163 H POC Glucose 204 H 203 H Lactic Acid Calcium 7.7 L Phosphorus 2.40 L D Magnesium Iron TIBC Transferrin Total Bilirubin Direct Bilirubin AST ALT Alkaline Phosphatase Lactate Dehydrogenase CK-MB (CK-2) Troponin T C-Reactive Protein Total Protein Albumin Triglycerides Cholesterol HDL Cholesterol Vitamin B12 Urine Creatinine Urine Total Protein Heparin-induced Plt Ab Hep Bs Antibody, Quant Crossmatch 12/08/16 12/08/16 12/08/16 08:04 08:46 08:46 WBC RBC Hgb Hct MCV MCHC RDW Plt Count Lymph % (Auto) [place] % (Auto) [place] # Baso # Seg Neutrophils % Seg Neuts % (Manual) Lymphocytes % (Manual) Monocytes % (Manual) Nucleated RBC % Seg Neutrophils # Seg Neutrophils # Man Lymphocytes # (Manual) Monocytes # (Manual) Percent Retic Haptoglobin PT INR Fibrinogen D-Dimer POC ABG pH POC ABG pCO2 POC ABG pO2 Sodium 147 H Potassium 2.9 L* Chloride 110.6 H Carbon Dioxide 17 L BUN 28 H Creatinine 3.6 H Glucose 127 H POC Glucose 205 H Lactic Acid Calcium 7.3 L Phosphorus Magnesium Iron TIBC Transferrin Total Bilirubin Direct Bilirubin AST ALT Alkaline Phosphatase Lactate Dehydrogenase CK-MB (CK-2) Troponin T C-Reactive Protein Total Protein Albumin Triglycerides Cholesterol HDL Cholesterol Vitamin B12 Urine Creatinine Urine Total Protein Heparin-induced Plt Ab Hep Bs Antibody, Quant Crossmatch See Detail 12/08/16 12/08/16 12/08/16 12:36 19:00 19:00 WBC RBC Hgb Hct MCV MCHC RDW Plt Count Lymph % (Auto) [place] % (Auto) [place] # Baso # Seg Neutrophils % Seg Neuts % (Manual) Lymphocytes % (Manual) Monocytes % (Manual) Nucleated RBC % Seg Neutrophils # Seg Neutrophils # Man Lymphocytes # (Manual) Monocytes # (Manual) Percent Retic Haptoglobin PT 15.3 H INR 1.22 H Fibrinogen 563 H D-Dimer 5507.36 H POC ABG pH POC ABG pCO2 POC ABG pO2 Sodium Potassium Chloride Carbon Dioxide 21 L BUN Creatinine 1.7 H D Glucose 155 H POC Glucose 181 H Lactic Acid Calcium Phosphorus Magnesium Iron TIBC Transferrin Total Bilirubin Direct Bilirubin AST ALT Alkaline Phosphatase Lactate Dehydrogenase CK-MB (CK-2) Troponin T C-Reactive Protein Total Protein Albumin Triglycerides Cholesterol HDL Cholesterol Vitamin B12 Urine Creatinine Urine Total Protein Heparin-induced Plt Ab Hep Bs Antibody, Quant Crossmatch 12/08/16 12/08/16 12/08/16 19:00 19:00 21:30 WBC RBC 2.76 L Hgb 7.8 L Hct 23.7 L MCV MCHC RDW 17.0 H Plt Count 38 L Lymph % (Auto) [place] % (Auto) [place] # Baso # Seg Neutrophils % Seg Neuts % (Manual) Lymphocytes % (Manual) Monocytes % (Manual) Nucleated RBC % Seg Neutrophils # Seg Neutrophils # Man Lymphocytes # (Manual) Monocytes # (Manual) Percent Retic Haptoglobin 271 H PT INR Fibrinogen D-Dimer POC ABG pH POC ABG pCO2 POC ABG pO2 Sodium Potassium Chloride Carbon Dioxide BUN Creatinine Glucose POC Glucose Lactic Acid Calcium Phosphorus Magnesium Iron TIBC Transferrin Total Bilirubin Direct Bilirubin AST ALT Alkaline Phosphatase Lactate Dehydrogenase 382 H CK-MB (CK-2) Troponin T C-Reactive Protein Total Protein Albumin Triglycerides Cholesterol HDL Cholesterol Vitamin B12 Urine Creatinine Urine Total Protein Heparin-induced Plt Ab Hep Bs Antibody, Quant Crossmatch 12/08/16 12/08/16 12/09/16 23:32 23:44 05:22 WBC RBC Hgb Hct MCV MCHC RDW Plt Count Lymph % (Auto) [place] % (Auto) [place] # Baso # Seg Neutrophils % Seg Neuts % (Manual) Lymphocytes % (Manual) Monocytes % (Manual) Nucleated RBC % Seg Neutrophils # Seg Neutrophils # Man Lymphocytes # (Manual) Monocytes # (Manual) Percent Retic Haptoglobin PT INR Fibrinogen D-Dimer POC ABG pH 7.498 H POC ABG pCO2 25.2 L POC ABG pO2 137 H Sodium Potassium Chloride Carbon Dioxide BUN Creatinine Glucose POC Glucose 311 H 113 H Lactic Acid Calcium Phosphorus Magnesium Iron TIBC Transferrin Total Bilirubin Direct Bilirubin AST ALT Alkaline Phosphatase Lactate Dehydrogenase CK-MB (CK-2) Troponin T C-Reactive Protein Total Protein Albumin Triglycerides Cholesterol HDL Cholesterol Vitamin B12 Urine Creatinine Urine Total Protein Heparin-induced Plt Ab Hep Bs Antibody, Quant Crossmatch 12/09/16 12/09/16 12/09/16 06:00 11:29 11:59 WBC RBC Hgb Hct MCV MCHC RDW Plt Count Lymph % (Auto) [place] % (Auto) [place] # Baso # Seg Neutrophils % Seg Neuts % (Manual) Lymphocytes % (Manual) Monocytes % (Manual) Nucleated RBC % Seg Neutrophils # Seg Neutrophils # Man Lymphocytes # (Manual) Monocytes # (Manual) Percent Retic 0.23 L Haptoglobin PT INR Fibrinogen D-Dimer POC ABG pH POC ABG pCO2 POC ABG pO2 Sodium Potassium Chloride 110.2 H Carbon Dioxide 18 L BUN 19 H Creatinine 2.5 H Glucose 105 H POC Glucose 254 H Lactic Acid Calcium Phosphorus 2.00 L Magnesium Iron TIBC Transferrin Total Bilirubin Direct Bilirubin AST ALT Alkaline Phosphatase Lactate Dehydrogenase CK-MB (CK-2) Troponin T C-Reactive Protein Total Protein Albumin Triglycerides Cholesterol HDL Cholesterol Vitamin B12 Urine Creatinine Urine Total Protein Heparin-induced Plt Ab Hep Bs Antibody, Quant Crossmatch 12/09/16 12/09/16 12/09/16 12:02 13:27 13:27 WBC RBC Hgb Hct MCV MCHC RDW Plt Count Lymph % (Auto) [place] % (Auto) [place] # Baso # Seg Neutrophils % Seg Neuts % (Manual) Lymphocytes % (Manual) Monocytes % (Manual) Nucleated RBC % Seg Neutrophils # Seg Neutrophils # Man Lymphocytes # (Manual) Monocytes # (Manual) Percent Retic Haptoglobin PT INR Fibrinogen D-Dimer POC ABG pH 7.326 L POC ABG pCO2 POC ABG pO2 115 H Sodium Potassium Chloride Carbon Dioxide BUN Creatinine Glucose POC Glucose Lactic Acid Calcium Phosphorus Magnesium Iron 15 L TIBC 134 L Transferrin Total Bilirubin Direct Bilirubin AST ALT Alkaline Phosphatase Lactate Dehydrogenase CK-MB (CK-2) Troponin T C-Reactive Protein Total Protein Albumin Triglycerides Cholesterol HDL Cholesterol Vitamin B12 > 2000 H Urine Creatinine Urine Total Protein Heparin-induced Plt Ab Hep Bs Antibody, Quant Crossmatch 12/09/16 12/09/16 12/09/16 13:27 13:27 16:28 WBC RBC Hgb Hct MCV MCHC RDW Plt Count Lymph % (Auto) [place] % (Auto) [place] # Baso # Seg Neutrophils % Seg Neuts % (Manual) Lymphocytes % (Manual) Monocytes % (Manual) Nucleated RBC % Seg Neutrophils # Seg Neutrophils # Man Lymphocytes # (Manual) Monocytes # (Manual) Percent Retic Haptoglobin PT INR Fibrinogen D-Dimer POC ABG pH POC ABG pCO2 POC ABG pO2 Sodium Potassium Chloride Carbon Dioxide BUN Creatinine Glucose POC Glucose 199 H Lactic Acid Calcium Phosphorus Magnesium Iron TIBC Transferrin Total Bilirubin Direct Bilirubin AST ALT Alkaline Phosphatase Lactate Dehydrogenase CK-MB (CK-2) Troponin T C-Reactive Protein Total Protein Albumin Triglycerides Cholesterol HDL Cholesterol Vitamin B12 Urine Creatinine Urine Total Protein Heparin-induced Plt Ab Weak positive H Hep Bs Antibody, Quant <5 L Crossmatch 12/09/16 12/09/16 12/10/16 23:27 Unknown 05:36 WBC 11.3 H RBC 2.92 L Hgb 8.4 L Hct 25.3 L MCV MCHC RDW 16.9 H Plt Count 31 L Lymph % (Auto) [place] % (Auto) [place] # Baso # Seg Neutrophils % Seg Neuts % (Manual) Lymphocytes % (Manual) Monocytes % (Manual) Nucleated RBC % Seg Neutrophils # Seg Neutrophils # Man Lymphocytes # (Manual) Monocytes # (Manual) Percent Retic Haptoglobin PT INR Fibrinogen D-Dimer POC ABG pH POC ABG pCO2 POC ABG pO2 Sodium Potassium Chloride Carbon Dioxide BUN Creatinine Glucose POC Glucose 247 H 248 H Lactic Acid Calcium Phosphorus Magnesium Iron TIBC Transferrin Total Bilirubin Direct Bilirubin AST ALT Alkaline Phosphatase Lactate Dehydrogenase CK-MB (CK-2) Troponin T C-Reactive Protein Total Protein Albumin Triglycerides Cholesterol HDL Cholesterol Vitamin B12 Urine Creatinine Urine Total Protein Heparin-induced Plt Ab Hep Bs Antibody, Quant Crossmatch 12/10/16 12/10/16 12/10/16 09:55 09:55 11:49 WBC 21.2 H RBC 3.37 L Hgb 9.6 L Hct 29.5 L MCV MCHC RDW 16.3 H Plt Count 102 L D Lymph % (Auto) [place] % (Auto) [place] # Baso # Seg Neutrophils % Seg Neuts % (Manual) Lymphocytes % (Manual) Monocytes % (Manual) Nucleated RBC % Seg Neutrophils # Seg Neutrophils # Man Lymphocytes # (Manual) Monocytes # (Manual) Percent Retic Haptoglobin PT INR Fibrinogen D-Dimer POC ABG pH POC ABG pCO2 POC ABG pO2 Sodium Potassium Chloride 107.4 H Carbon Dioxide 21 L BUN 37 H Creatinine 4.2 H D Glucose 174 H POC Glucose 265 H Lactic Acid Calcium Phosphorus Magnesium Iron TIBC Transferrin Total Bilirubin Direct Bilirubin AST ALT Alkaline Phosphatase Lactate Dehydrogenase CK-MB (CK-2) Troponin T C-Reactive Protein Total Protein Albumin Triglycerides Cholesterol HDL Cholesterol Vitamin B12 Urine Creatinine Urine Total Protein Heparin-induced Plt Ab Hep Bs Antibody, Quant Crossmatch 12/10/16 12/10/16 12/11/16 17:56 23:44 04:30 WBC 23.5 H RBC 3.46 L Hgb 9.7 L Hct 30.1 L MCV MCHC RDW 16.4 H Plt Count 115 L Lymph % (Auto) [place] % (Auto) [place] # Baso # Seg Neutrophils % Seg Neuts % (Manual) 84.0 H Lymphocytes % (Manual) 5.0 L Monocytes % (Manual) 10.0 H Nucleated RBC % 1.0 H Seg Neutrophils # Seg Neutrophils # Man 19.7 H Lymphocytes # (Manual) Monocytes # (Manual) 2.4 H Percent Retic Haptoglobin PT INR Fibrinogen D-Dimer POC ABG pH POC ABG pCO2 POC ABG pO2 Sodium Potassium Chloride Carbon Dioxide BUN Creatinine Glucose POC Glucose 118 H 378 H Lactic Acid Calcium Phosphorus Magnesium Iron TIBC Transferrin Total Bilirubin Direct Bilirubin AST ALT Alkaline Phosphatase Lactate Dehydrogenase CK-MB (CK-2) Troponin T C-Reactive Protein Total Protein Albumin Triglycerides Cholesterol HDL Cholesterol Vitamin B12 Urine Creatinine Urine Total Protein Heparin-induced Plt Ab Hep Bs Antibody, Quant Crossmatch 12/11/16 12/11/16 12/11/16 04:30 05:33 12:48 WBC RBC Hgb Hct MCV MCHC RDW Plt Count Lymph % (Auto) [place] % (Auto) [place] # Baso # Seg Neutrophils % Seg Neuts % (Manual) Lymphocytes % (Manual) Monocytes % (Manual) Nucleated RBC % Seg Neutrophils # Seg Neutrophils # Man Lymphocytes # (Manual) Monocytes # (Manual) Percent Retic Haptoglobin PT INR Fibrinogen D-Dimer POC ABG pH POC ABG pCO2 POC ABG pO2 Sodium Potassium Chloride Carbon Dioxide 21 L BUN 50 H Creatinine 4.8 H Glucose 303 H POC Glucose 335 H 325 H Lactic Acid Calcium 8.2 L Phosphorus Magnesium Iron TIBC Transferrin Total Bilirubin Direct Bilirubin AST ALT Alkaline Phosphatase Lactate Dehydrogenase CK-MB (CK-2) Troponin T C-Reactive Protein Total Protein Albumin Triglycerides Cholesterol HDL Cholesterol Vitamin B12 Urine Creatinine Urine Total Protein Heparin-induced Plt Ab Hep Bs Antibody, Quant Crossmatch 12/11/16 12/11/16 12/12/16 17:49 21:16 00:49 WBC RBC Hgb Hct MCV MCHC RDW Plt Count Lymph % (Auto) [place] % (Auto) [place] # Baso # Seg Neutrophils % Seg Neuts % (Manual) Lymphocytes % (Manual) Monocytes % (Manual) Nucleated RBC % Seg Neutrophils # Seg Neutrophils # Man Lymphocytes # (Manual) Monocytes # (Manual) Percent Retic Haptoglobin PT INR Fibrinogen D-Dimer POC ABG pH POC ABG pCO2 POC ABG pO2 Sodium Potassium Chloride Carbon Dioxide BUN Creatinine Glucose POC Glucose 368 H 162 H 225 H Lactic Acid Calcium Phosphorus Magnesium Iron TIBC Transferrin Total Bilirubin Direct Bilirubin AST ALT Alkaline Phosphatase Lactate Dehydrogenase CK-MB (CK-2) Troponin T C-Reactive Protein Total Protein Albumin Triglycerides Cholesterol HDL Cholesterol Vitamin B12 Urine Creatinine Urine Total Protein Heparin-induced Plt Ab Hep Bs Antibody, Quant Crossmatch 12/12/16 12/12/16 12/12/16 06:09 07:52 08:18 WBC 24.1 H RBC 3.16 L Hgb 9.0 L Hct 29.4 L MCV MCHC RDW 16.6 H Plt Count 96 L Lymph % (Auto) [place] % (Auto) [place] # Baso # Seg Neutrophils % Seg Neuts % (Manual) 75.0 H Lymphocytes % (Manual) Monocytes % (Manual) Nucleated RBC % Seg Neutrophils # Seg Neutrophils # Man 18.1 H Lymphocytes # (Manual) Monocytes # (Manual) 1.4 H Percent Retic Haptoglobin PT INR Fibrinogen D-Dimer POC ABG pH POC ABG pCO2 POC ABG pO2 Sodium Potassium Chloride Carbon Dioxide BUN Creatinine Glucose POC Glucose 428 H 418 H Lactic Acid Calcium Phosphorus Magnesium Iron TIBC Transferrin Total Bilirubin Direct Bilirubin AST ALT Alkaline Phosphatase Lactate Dehydrogenase CK-MB (CK-2) Troponin T C-Reactive Protein Total Protein Albumin Triglycerides Cholesterol HDL Cholesterol Vitamin B12 Urine Creatinine Urine Total Protein Heparin-induced Plt Ab Hep Bs Antibody, Quant Crossmatch 12/12/16 12/12/16 12/12/16 08:18 11:31 17:03 WBC RBC Hgb Hct MCV MCHC RDW Plt Count Lymph % (Auto) [place] % (Auto) [place] # Baso # Seg Neutrophils % Seg Neuts % (Manual) Lymphocytes % (Manual) Monocytes % (Manual) Nucleated RBC % Seg Neutrophils # Seg Neutrophils # Man Lymphocytes # (Manual) Monocytes # (Manual) Percent Retic Haptoglobin PT INR Fibrinogen D-Dimer POC ABG pH POC ABG pCO2 POC ABG pO2 Sodium Potassium Chloride Carbon Dioxide 12 L D BUN 41 H Creatinine 4.5 H Glucose 369 H POC Glucose 212 H 422 H Lactic Acid Calcium Phosphorus Magnesium Iron TIBC Transferrin Total Bilirubin Direct Bilirubin AST ALT Alkaline Phosphatase Lactate Dehydrogenase CK-MB (CK-2) Troponin T C-Reactive Protein Total Protein Albumin Triglycerides Cholesterol HDL Cholesterol Vitamin B12 Urine Creatinine Urine Total Protein Heparin-induced Plt Ab Hep Bs Antibody, Quant Crossmatch 12/12/16 12/13/16 12/13/16 21:35 07:49 07:49 WBC 24.0 H RBC 2.90 L Hgb 8.3 L Hct 25.8 L MCV MCHC RDW 15.5 H Plt Count 120 L Lymph % (Auto) [place] % (Auto) [place] # Baso # Seg Neutrophils % Seg Neuts % (Manual) 89.0 H Lymphocytes % (Manual) 7.0 L Monocytes % (Manual) Nucleated RBC % Seg Neutrophils # Seg Neutrophils # Man 21.4 H Lymphocytes # (Manual) Monocytes # (Manual) Percent Retic Haptoglobin PT INR Fibrinogen D-Dimer POC ABG pH POC ABG pCO2 POC ABG pO2 Sodium Potassium 3.2 L Chloride Carbon Dioxide BUN 21 H Creatinine 3.0 H Glucose 21 L* POC Glucose 185 H Lactic Acid Calcium Phosphorus Magnesium Iron TIBC Transferrin Total Bilirubin Direct Bilirubin AST ALT Alkaline Phosphatase Lactate Dehydrogenase CK-MB (CK-2) Troponin T C-Reactive Protein Total Protein Albumin Triglycerides Cholesterol HDL Cholesterol Vitamin B12 Urine Creatinine Urine Total Protein Heparin-induced Plt Ab Hep Bs Antibody, Quant Crossmatch 12/13/16 12/13/16 12/13/16 09:57 11:02 16:52 WBC RBC Hgb Hct MCV MCHC RDW Plt Count Lymph % (Auto) [place] % (Auto) [place] # Baso # Seg Neutrophils % Seg Neuts % (Manual) Lymphocytes % (Manual) Monocytes % (Manual) Nucleated RBC % Seg Neutrophils # Seg Neutrophils # Man Lymphocytes # (Manual) Monocytes # (Manual) Percent Retic Haptoglobin PT INR Fibrinogen D-Dimer POC ABG pH POC ABG pCO2 POC ABG pO2 Sodium Potassium Chloride Carbon Dioxide BUN Creatinine Glucose POC Glucose < 40 L 231 H 312 H Lactic Acid Calcium Phosphorus Magnesium Iron TIBC Transferrin Total Bilirubin Direct Bilirubin AST ALT Alkaline Phosphatase Lactate Dehydrogenase CK-MB (CK-2) Troponin T C-Reactive Protein Total Protein Albumin Triglycerides Cholesterol HDL Cholesterol Vitamin B12 Urine Creatinine Urine Total Protein Heparin-induced Plt Ab Hep Bs Antibody, Quant Crossmatch 12/13/16 12/14/16 12/14/16 21:32 07:07 07:07 WBC 16.7 H RBC 2.80 L Hgb 7.9 L Hct 24.7 L MCV MCHC RDW 15.4 H Plt Count 131 L Lymph % (Auto) 13.1 L [place] % (Auto) [place] # 1.2 H Baso # Seg Neutrophils % 78.3 H Seg Neuts % (Manual) Lymphocytes % (Manual) Monocytes % (Manual) Nucleated RBC % Seg Neutrophils # 13.1 H Seg Neutrophils # Man Lymphocytes # (Manual) Monocytes # (Manual) Percent Retic Haptoglobin PT INR Fibrinogen D-Dimer POC ABG pH POC ABG pCO2 POC ABG pO2 Sodium Potassium 3.5 L Chloride Carbon Dioxide BUN 30 H Creatinine 4.6 H D Glucose 181 H POC Glucose 275 H Lactic Acid Calcium 7.7 L Phosphorus Magnesium Iron TIBC Transferrin Total Bilirubin Direct Bilirubin AST ALT Alkaline Phosphatase Lactate Dehydrogenase CK-MB (CK-2) Troponin T C-Reactive Protein Total Protein Albumin Triglycerides Cholesterol HDL Cholesterol Vitamin B12 Urine Creatinine Urine Total Protein Heparin-induced Plt Ab Hep Bs Antibody, Quant Crossmatch 12/14/16 12/14/16 12/14/16 07:46 11:35 16:24 WBC RBC Hgb Hct MCV MCHC RDW Plt Count Lymph % (Auto) [place] % (Auto) [place] # Baso # Seg Neutrophils % Seg Neuts % (Manual) Lymphocytes % (Manual) Monocytes % (Manual) Nucleated RBC % Seg Neutrophils # Seg Neutrophils # Man Lymphocytes # (Manual) Monocytes # (Manual) Percent Retic Haptoglobin PT INR Fibrinogen D-Dimer POC ABG pH POC ABG pCO2 POC ABG pO2 Sodium Potassium Chloride Carbon Dioxide BUN Creatinine Glucose POC Glucose 189 H 254 H 466 H Lactic Acid Calcium Phosphorus Magnesium Iron TIBC Transferrin Total Bilirubin Direct Bilirubin AST ALT Alkaline Phosphatase Lactate Dehydrogenase CK-MB (CK-2) Troponin T C-Reactive Protein Total Protein Albumin Triglycerides Cholesterol HDL Cholesterol Vitamin B12 Urine Creatinine Urine Total Protein Heparin-induced Plt Ab Hep Bs Antibody, Quant Crossmatch 12/14/16 12/15/16 12/15/16 20:57 06:27 07:46 WBC RBC Hgb Hct MCV MCHC RDW Plt Count Lymph % (Auto) [place] % (Auto) [place] # Baso # Seg Neutrophils % Seg Neuts % (Manual) Lymphocytes % (Manual) Monocytes % (Manual) Nucleated RBC % Seg Neutrophils # Seg Neutrophils # Man Lymphocytes # (Manual) Monocytes # (Manual) Percent Retic Haptoglobin PT INR Fibrinogen D-Dimer POC ABG pH POC ABG pCO2 POC ABG pO2 Sodium Potassium Chloride Carbon Dioxide BUN Creatinine Glucose POC Glucose 301 H 183 H 231 H Lactic Acid Calcium Phosphorus Magnesium Iron TIBC Transferrin Total Bilirubin Direct Bilirubin AST ALT Alkaline Phosphatase Lactate Dehydrogenase CK-MB (CK-2) Troponin T C-Reactive Protein Total Protein Albumin Triglycerides Cholesterol HDL Cholesterol Vitamin B12 Urine Creatinine Urine Total Protein Heparin-induced Plt Ab Hep Bs Antibody, Quant Crossmatch 12/15/16 12/15/16 12/15/16 11:38 15:34 20:51 WBC RBC Hgb Hct MCV MCHC RDW Plt Count Lymph % (Auto) [place] % (Auto) [place] # Baso # Seg Neutrophils % Seg Neuts % (Manual) Lymphocytes % (Manual) Monocytes % (Manual) Nucleated RBC % Seg Neutrophils # Seg Neutrophils # Man Lymphocytes # (Manual) Monocytes # (Manual) Percent Retic Haptoglobin PT INR Fibrinogen D-Dimer POC ABG pH POC ABG pCO2 POC ABG pO2 Sodium Potassium Chloride Carbon Dioxide BUN Creatinine Glucose POC Glucose 375 H 313 H 274 H Lactic Acid Calcium Phosphorus Magnesium Iron TIBC Transferrin Total Bilirubin Direct Bilirubin AST ALT Alkaline Phosphatase Lactate Dehydrogenase CK-MB (CK-2) Troponin T C-Reactive Protein Total Protein Albumin Triglycerides Cholesterol HDL Cholesterol Vitamin B12 Urine Creatinine Urine Total Protein Heparin-induced Plt Ab Hep Bs Antibody, Quant Crossmatch 12/16/16 12/16/16 12/16/16 08:26 09:12 17:13 WBC RBC Hgb Hct MCV MCHC RDW Plt Count Lymph % (Auto) [place] % (Auto) [place] # Baso # Seg Neutrophils % Seg Neuts % (Manual) Lymphocytes % (Manual) Monocytes % (Manual) Nucleated RBC % Seg Neutrophils # Seg Neutrophils # Man Lymphocytes # (Manual) Monocytes # (Manual) Percent Retic Haptoglobin PT INR Fibrinogen D-Dimer POC ABG pH POC ABG pCO2 POC ABG pO2 Sodium Potassium Chloride Carbon Dioxide BUN Creatinine Glucose POC Glucose 59 L 127 H > 500 H Lactic Acid Calcium Phosphorus Magnesium Iron TIBC Transferrin Total Bilirubin Direct Bilirubin AST ALT Alkaline Phosphatase Lactate Dehydrogenase CK-MB (CK-2) Troponin T C-Reactive Protein Total Protein Albumin Triglycerides Cholesterol HDL Cholesterol Vitamin B12 Urine Creatinine Urine Total Protein Heparin-induced Plt Ab Hep Bs Antibody, Quant Crossmatch 12/16/16 12/16/16 12/16/16 22:59 Unknown Unknown WBC 17.2 H RBC 2.83 L Hgb 7.9 L Hct 24.4 L MCV MCHC RDW Plt Count Lymph % (Auto) 9.2 L [place] % (Auto) [place] # 0.9 H Baso # Seg Neutrophils % 84.1 H Seg Neuts % (Manual) Lymphocytes % (Manual) Monocytes % (Manual) Nucleated RBC % Seg Neutrophils # 14.5 H Seg Neutrophils # Man Lymphocytes # (Manual) Monocytes # (Manual) Percent Retic Haptoglobin PT INR Fibrinogen D-Dimer POC ABG pH POC ABG pCO2 POC ABG pO2 Sodium Potassium Chloride Carbon Dioxide BUN 43 H Creatinine 5.4 H Glucose 131 H POC Glucose 320 H Lactic Acid Calcium 6.9 L Phosphorus Magnesium Iron TIBC Transferrin Total Bilirubin Direct Bilirubin AST ALT Alkaline Phosphatase Lactate Dehydrogenase CK-MB (CK-2) Troponin T C-Reactive Protein Total Protein Albumin Triglycerides Cholesterol HDL Cholesterol Vitamin B12 Urine Creatinine Urine Total Protein Heparin-induced Plt Ab Hep Bs Antibody, Quant Crossmatch 12/17/16 12/17/16 12/17/16 08:26 08:56 09:52 WBC RBC Hgb Hct MCV MCHC RDW Plt Count Lymph % (Auto) [place] % (Auto) [place] # Baso # Seg Neutrophils % Seg Neuts % (Manual) Lymphocytes % (Manual) Monocytes % (Manual) Nucleated RBC % Seg Neutrophils # Seg Neutrophils # Man Lymphocytes # (Manual) Monocytes # (Manual) Percent Retic Haptoglobin PT INR Fibrinogen D-Dimer POC ABG pH POC ABG pCO2 POC ABG pO2 Sodium Potassium Chloride Carbon Dioxide BUN Creatinine Glucose POC Glucose < 40 L 40 L 133 H Lactic Acid Calcium Phosphorus Magnesium Iron TIBC Transferrin Total Bilirubin Direct Bilirubin AST ALT Alkaline Phosphatase Lactate Dehydrogenase CK-MB (CK-2) Troponin T C-Reactive Protein Total Protein Albumin Triglycerides Cholesterol HDL Cholesterol Vitamin B12 Urine Creatinine Urine Total Protein Heparin-induced Plt Ab Hep Bs Antibody, Quant Crossmatch 12/17/16 12/17/16 12/17/16 12:51 16:08 21:00 WBC RBC Hgb Hct MCV MCHC RDW Plt Count Lymph % (Auto) [place] % (Auto) [place] # Baso # Seg Neutrophils % Seg Neuts % (Manual) Lymphocytes % (Manual) Monocytes % (Manual) Nucleated RBC % Seg Neutrophils # Seg Neutrophils # Man Lymphocytes # (Manual) Monocytes # (Manual) Percent Retic Haptoglobin PT INR Fibrinogen D-Dimer POC ABG pH POC ABG pCO2 POC ABG pO2 Sodium Potassium Chloride Carbon Dioxide BUN Creatinine Glucose POC Glucose 177 H 303 H 489 H Lactic Acid Calcium Phosphorus Magnesium Iron TIBC Transferrin Total Bilirubin Direct Bilirubin AST ALT Alkaline Phosphatase Lactate Dehydrogenase CK-MB (CK-2) Troponin T C-Reactive Protein Total Protein Albumin Triglycerides Cholesterol HDL Cholesterol Vitamin B12 Urine Creatinine Urine Total Protein Heparin-induced Plt Ab Hep Bs Antibody, Quant Crossmatch 12/17/16 12/17/16 12/18/16 Unknown Unknown 05:50 WBC 16.6 H 15.6 H RBC 2.63 L 2.58 L Hgb 7.5 L 7.3 L Hct 23.3 L 23.0 L MCV MCHC RDW 15.3 H 15.9 H Plt Count Lymph % (Auto) 7.7 L 8.7 L [place] % (Auto) [place] # 0.9 H Baso # Seg Neutrophils % 85.8 H 83.6 H Seg Neuts % (Manual) Lymphocytes % (Manual) Monocytes % (Manual) Nucleated RBC % Seg Neutrophils # 14.3 H 13.0 H Seg Neutrophils # Man Lymphocytes # (Manual) Monocytes # (Manual) Percent Retic Haptoglobin PT INR Fibrinogen D-Dimer POC ABG pH POC ABG pCO2 POC ABG pO2 Sodium Potassium 3.5 L Chloride Carbon Dioxide BUN 47 H Creatinine 5.2 H Glucose 173 H POC Glucose Lactic Acid Calcium 6.9 L Phosphorus Magnesium Iron TIBC Transferrin Total Bilirubin Direct Bilirubin AST ALT Alkaline Phosphatase Lactate Dehydrogenase CK-MB (CK-2) Troponin T C-Reactive Protein Total Protein Albumin Triglycerides Cholesterol HDL Cholesterol Vitamin B12 Urine Creatinine Urine Total Protein Heparin-induced Plt Ab Hep Bs Antibody, Quant Crossmatch 12/18/16 12/18/16 12/18/16 05:50 09:09 16:46 WBC RBC Hgb Hct MCV MCHC RDW Plt Count Lymph % (Auto) [place] % (Auto) [place] # Baso # Seg Neutrophils % Seg Neuts % (Manual) Lymphocytes % (Manual) Monocytes % (Manual) Nucleated RBC % Seg Neutrophils # Seg Neutrophils # Man Lymphocytes # (Manual) Monocytes # (Manual) Percent Retic Haptoglobin PT INR Fibrinogen D-Dimer POC ABG pH POC ABG pCO2 POC ABG pO2 Sodium Potassium Chloride Carbon Dioxide 17 L BUN 46 H Creatinine 5.0 H Glucose 252 H POC Glucose 349 H 324 H Lactic Acid Calcium 6.8 L Phosphorus Magnesium Iron TIBC Transferrin Total Bilirubin Direct Bilirubin AST ALT Alkaline Phosphatase Lactate Dehydrogenase CK-MB (CK-2) Troponin T C-Reactive Protein Total Protein Albumin Triglycerides Cholesterol HDL Cholesterol Vitamin B12 Urine Creatinine Urine Total Protein Heparin-induced Plt Ab Hep Bs Antibody, Quant Crossmatch 12/18/16 12/19/16 12/19/16 21:14 08:12 10:23 WBC 13.7 H RBC 2.60 L Hgb 7.5 L Hct 23.1 L MCV MCHC RDW 15.7 H Plt Count Lymph % (Auto) 9.1 L [place] % (Auto) [place] # 0.9 H Baso # Seg Neutrophils % 82.2 H Seg Neuts % (Manual) Lymphocytes % (Manual) Monocytes % (Manual) Nucleated RBC % Seg Neutrophils # 11.3 H Seg Neutrophils # Man Lymphocytes # (Manual) Monocytes # (Manual) Percent Retic Haptoglobin PT INR Fibrinogen D-Dimer POC ABG pH POC ABG pCO2 POC ABG pO2 Sodium Potassium Chloride Carbon Dioxide BUN Creatinine Glucose POC Glucose 316 H 464 H Lactic Acid Calcium Phosphorus Magnesium Iron TIBC Transferrin Total Bilirubin Direct Bilirubin AST ALT Alkaline Phosphatase Lactate Dehydrogenase CK-MB (CK-2) Troponin T C-Reactive Protein Total Protein Albumin Triglycerides Cholesterol HDL Cholesterol Vitamin B12 Urine Creatinine Urine Total Protein Heparin-induced Plt Ab Hep Bs Antibody, Quant Crossmatch 12/19/16 12/19/16 12/19/16 10:23 11:39 16:00 WBC RBC Hgb Hct MCV MCHC RDW Plt Count Lymph % (Auto) [place] % (Auto) [place] # Baso # Seg Neutrophils % Seg Neuts % (Manual) Lymphocytes % (Manual) Monocytes % (Manual) Nucleated RBC % Seg Neutrophils # Seg Neutrophils # Man Lymphocytes # (Manual) Monocytes # (Manual) Percent Retic Haptoglobin PT INR Fibrinogen D-Dimer POC ABG pH POC ABG pCO2 POC ABG pO2 Sodium Potassium 3.5 L Chloride Carbon Dioxide 14 L BUN 22 H Creatinine 3.2 H Glucose 446 H POC Glucose 344 H 467 H Lactic Acid Calcium 6.9 L Phosphorus 1.70 L D Magnesium Iron TIBC Transferrin Total Bilirubin Direct Bilirubin AST ALT Alkaline Phosphatase Lactate Dehydrogenase CK-MB (CK-2) Troponin T C-Reactive Protein Total Protein Albumin Triglycerides Cholesterol HDL Cholesterol Vitamin B12 Urine Creatinine Urine Total Protein Heparin-induced Plt Ab Hep Bs Antibody, Quant Crossmatch 12/19/16 12/19/16 12/19/16 16:35 16:35 21:16 WBC 19.3 H RBC 2.37 L Hgb 6.9 L Hct 21.8 L MCV MCHC RDW 16.7 H Plt Count Lymph % (Auto) [place] % (Auto) [place] # Baso # Seg Neutrophils % Seg Neuts % (Manual) Lymphocytes % (Manual) Monocytes % (Manual) Nucleated RBC % Seg Neutrophils # Seg Neutrophils # Man Lymphocytes # (Manual) Monocytes # (Manual) Percent Retic Haptoglobin PT INR Fibrinogen D-Dimer POC ABG pH POC ABG pCO2 POC ABG pO2 Sodium Potassium 3.4 L Chloride Carbon Dioxide 17 L BUN 23 H Creatinine 3.2 H Glucose 427 H POC Glucose 397 H Lactic Acid Calcium 6.9 L Phosphorus 2.40 L D Magnesium Iron TIBC Transferrin Total Bilirubin Direct Bilirubin AST ALT Alkaline Phosphatase Lactate Dehydrogenase CK-MB (CK-2) Troponin T C-Reactive Protein Total Protein Albumin Triglycerides Cholesterol HDL Cholesterol Vitamin B12 Urine Creatinine Urine Total Protein Heparin-induced Plt Ab Hep Bs Antibody, Quant Crossmatch 12/20/16 12/20/16 12/20/16 06:00 06:00 07:55 WBC 17.5 H RBC 2.54 L Hgb 7.3 L Hct 23.5 L MCV MCHC RDW 16.4 H Plt Count Lymph % (Auto) 9.0 L [place] % (Auto) [place] # 1.1 H Baso # Seg Neutrophils % 83.0 H Seg Neuts % (Manual) Lymphocytes % (Manual) Monocytes % (Manual) Nucleated RBC % Seg Neutrophils # 14.5 H Seg Neutrophils # Man Lymphocytes # (Manual) Monocytes # (Manual) Percent Retic Haptoglobin PT INR Fibrinogen D-Dimer POC ABG pH POC ABG pCO2 POC ABG pO2 Sodium 136 L Potassium Chloride 92.4 L Carbon Dioxide 15 L BUN Creatinine 2.6 H Glucose 475 H POC Glucose > 500 H Lactic Acid Calcium Phosphorus Magnesium Iron TIBC Transferrin Total Bilirubin Direct Bilirubin AST ALT Alkaline Phosphatase Lactate Dehydrogenase CK-MB (CK-2) Troponin T C-Reactive Protein Total Protein Albumin Triglycerides Cholesterol HDL Cholesterol Vitamin B12 Urine Creatinine Urine Total Protein Heparin-induced Plt Ab Hep Bs Antibody, Quant Crossmatch 12/20/16 12/20/16 12/20/16 11:21 16:01 22:33 WBC RBC Hgb Hct MCV MCHC RDW Plt Count Lymph % (Auto) [place] % (Auto) [place] # Baso # Seg Neutrophils % Seg Neuts % (Manual) Lymphocytes % (Manual) Monocytes % (Manual) Nucleated RBC % Seg Neutrophils # Seg Neutrophils # Man Lymphocytes # (Manual) Monocytes # (Manual) Percent Retic Haptoglobin PT INR Fibrinogen D-Dimer POC ABG pH POC ABG pCO2 POC ABG pO2 Sodium Potassium Chloride Carbon Dioxide BUN Creatinine Glucose POC Glucose > 500 H 446 H > 500 H Lactic Acid Calcium Phosphorus Magnesium Iron TIBC Transferrin Total Bilirubin Direct Bilirubin AST ALT Alkaline Phosphatase Lactate Dehydrogenase CK-MB (CK-2) Troponin T C-Reactive Protein Total Protein Albumin Triglycerides Cholesterol HDL Cholesterol Vitamin B12 Urine Creatinine Urine Total Protein Heparin-induced Plt Ab Hep Bs Antibody, Quant Crossmatch 12/20/16 12/20/16 12/21/16 22:37 23:00 00:48 WBC RBC Hgb Hct MCV MCHC RDW Plt Count Lymph % (Auto) [place] % (Auto) [place] # Baso # Seg Neutrophils % Seg Neuts % (Manual) Lymphocytes % (Manual) Monocytes % (Manual) Nucleated RBC % Seg Neutrophils # Seg Neutrophils # Man Lymphocytes # (Manual) Monocytes # (Manual) Percent Retic Haptoglobin PT INR Fibrinogen D-Dimer POC ABG pH POC ABG pCO2 POC ABG pO2 Sodium 128 L D Potassium Chloride 83.2 L Carbon Dioxide 11 L BUN 32 H Creatinine 3.5 H Glucose 822 H* POC Glucose > 500 H > 500 H Lactic Acid Calcium 8.2 L Phosphorus Magnesium Iron TIBC Transferrin Total Bilirubin Direct Bilirubin AST ALT Alkaline Phosphatase Lactate Dehydrogenase CK-MB (CK-2) Troponin T C-Reactive Protein Total Protein Albumin Triglycerides Cholesterol HDL Cholesterol Vitamin B12 Urine Creatinine Urine Total Protein Heparin-induced Plt Ab Hep Bs Antibody, Quant Crossmatch 12/21/16 12/21/16 12/21/16 03:17 05:00 05:00 WBC 15.7 H RBC 2.32 L Hgb 6.8 L Hct 20.6 L MCV MCHC RDW 16.3 H Plt Count Lymph % (Auto) 11.5 L [place] % (Auto) 7.4 H [place] # 1.2 H Baso # Seg Neutrophils % 78.7 H Seg Neuts % (Manual) Lymphocytes % (Manual) Monocytes % (Manual) Nucleated RBC % Seg Neutrophils # 12.4 H Seg Neutrophils # Man Lymphocytes # (Manual) Monocytes # (Manual) Percent Retic Haptoglobin PT INR Fibrinogen D-Dimer POC ABG pH POC ABG pCO2 POC ABG pO2 Sodium Potassium Chloride 95.3 L Carbon Dioxide 20 L D BUN 32 H Creatinine 3.7 H Glucose 243 H POC Glucose 428 H Lactic Acid Calcium 8.1 L Phosphorus Magnesium Iron TIBC 193.20 L Transferrin 138 L Total Bilirubin Direct Bilirubin AST ALT Alkaline Phosphatase Lactate Dehydrogenase CK-MB (CK-2) Troponin T C-Reactive Protein Total Protein Albumin Triglycerides Cholesterol HDL Cholesterol Vitamin B12 Urine Creatinine Urine Total Protein Heparin-induced Plt Ab Hep Bs Antibody, Quant Crossmatch 12/21/16 12/21/16 12/21/16 05:40 06:49 08:20 WBC RBC Hgb Hct MCV MCHC RDW Plt Count Lymph % (Auto) [place] % (Auto) [place] # Baso # Seg Neutrophils % Seg Neuts % (Manual) Lymphocytes % (Manual) Monocytes % (Manual) Nucleated RBC % Seg Neutrophils # Seg Neutrophils # Man Lymphocytes # (Manual) Monocytes # (Manual) Percent Retic Haptoglobin PT INR Fibrinogen D-Dimer POC ABG pH POC ABG pCO2 POC ABG pO2 Sodium Potassium Chloride Carbon Dioxide BUN Creatinine Glucose POC Glucose 271 H 236 H 222 H Lactic Acid Calcium Phosphorus Magnesium Iron TIBC Transferrin Total Bilirubin Direct Bilirubin AST ALT Alkaline Phosphatase Lactate Dehydrogenase CK-MB (CK-2) Troponin T C-Reactive Protein Total Protein Albumin Triglycerides Cholesterol HDL Cholesterol Vitamin B12 Urine Creatinine Urine Total Protein Heparin-induced Plt Ab Hep Bs Antibody, Quant Crossmatch 12/21/16 12/21/16 12/21/16 16:28 18:26 21:10 WBC RBC Hgb Hct MCV MCHC RDW Plt Count Lymph % (Auto) [place] % (Auto) [place] # Baso # Seg Neutrophils % Seg Neuts % (Manual) Lymphocytes % (Manual) Monocytes % (Manual) Nucleated RBC % Seg Neutrophils # Seg Neutrophils # Man Lymphocytes # (Manual) Monocytes # (Manual) Percent Retic Haptoglobin PT INR Fibrinogen D-Dimer POC ABG pH POC ABG pCO2 POC ABG pO2 Sodium Potassium Chloride Carbon Dioxide BUN Creatinine Glucose POC Glucose < 40 L 62 L 255 H Lactic Acid Calcium Phosphorus Magnesium Iron TIBC Transferrin Total Bilirubin Direct Bilirubin AST ALT Alkaline Phosphatase Lactate Dehydrogenase CK-MB (CK-2) Troponin T C-Reactive Protein Total Protein Albumin Triglycerides Cholesterol HDL Cholesterol Vitamin B12 Urine Creatinine Urine Total Protein Heparin-induced Plt Ab Hep Bs Antibody, Quant Crossmatch 12/22/16 12/22/16 12/22/16 03:38 06:45 06:45 WBC 17.4 H RBC 2.26 L Hgb 6.6 L Hct 20.5 L MCV MCHC RDW 15.7 H Plt Count Lymph % (Auto) 8.1 L [place] % (Auto) [place] # 0.9 H Baso # 0.2 H Seg Neutrophils % 84.3 H Seg Neuts % (Manual) Lymphocytes % (Manual) Monocytes % (Manual) Nucleated RBC % Seg Neutrophils # 14.6 H Seg Neutrophils # Man Lymphocytes # (Manual) Monocytes # (Manual) Percent Retic Haptoglobin PT INR Fibrinogen D-Dimer POC ABG pH POC ABG pCO2 POC ABG pO2 Sodium Potassium 3.3 L Chloride 95.5 L Carbon Dioxide 20 L BUN Creatinine 2.5 H Glucose 308 H POC Glucose 430 H Lactic Acid Calcium 8.2 L Phosphorus Magnesium Iron TIBC Transferrin Total Bilirubin Direct Bilirubin AST ALT Alkaline Phosphatase Lactate Dehydrogenase CK-MB (CK-2) Troponin T C-Reactive Protein Total Protein Albumin Triglycerides Cholesterol HDL Cholesterol Vitamin B12 Urine Creatinine Urine Total Protein Heparin-induced Plt Ab Hep Bs Antibody, Quant Crossmatch 07/12/22/16 12/22/16 08:31 12:50 15:46 WBC RBC Hgb Hct MCV MCHC RDW Plt Count Lymph % (Auto) [place] % (Auto) [place] # Baso # Seg Neutrophils % Seg Neuts % (Manual) Lymphocytes % (Manual) Monocytes % (Manual) Nucleated RBC % Seg Neutrophils # Seg Neutrophils # Man Lymphocytes # (Manual) Monocytes # (Manual) Percent Retic Haptoglobin PT INR Fibrinogen D-Dimer POC ABG pH POC ABG pCO2 POC ABG pO2 Sodium Potassium Chloride Carbon Dioxide BUN Creatinine Glucose POC Glucose 306 H 391 H Lactic Acid Calcium Phosphorus Magnesium Iron TIBC Transferrin Total Bilirubin Direct Bilirubin AST ALT Alkaline Phosphatase Lactate Dehydrogenase CK-MB (CK-2) Troponin T C-Reactive Protein Total Protein Albumin Triglycerides Cholesterol HDL Cholesterol Vitamin B12 Urine Creatinine Urine Total Protein Heparin-induced Plt Ab Hep Bs Antibody, Quant Crossmatch See Detail 12/22/16 12/22/16 12/23/16 17:13 21:45 06:42 WBC 17.9 H RBC 2.75 L Hgb 8.1 L Hct 24.8 L MCV MCHC RDW 17.1 H Plt Count Lymph % (Auto) [place] % (Auto) [place] # Baso # Seg Neutrophils % Seg Neuts % (Manual) Lymphocytes % (Manual) Monocytes % (Manual) Nucleated RBC % Seg Neutrophils # Seg Neutrophils # Man Lymphocytes # (Manual) Monocytes # (Manual) Percent Retic Haptoglobin PT INR Fibrinogen D-Dimer POC ABG pH POC ABG pCO2 POC ABG pO2 Sodium Potassium Chloride Carbon Dioxide BUN Creatinine Glucose POC Glucose > 500 H 449 H Lactic Acid Calcium Phosphorus Magnesium Iron TIBC Transferrin Total Bilirubin Direct Bilirubin AST ALT Alkaline Phosphatase Lactate Dehydrogenase CK-MB (CK-2) Troponin T C-Reactive Protein Total Protein Albumin Triglycerides Cholesterol HDL Cholesterol Vitamin B12 Urine Creatinine Urine Total Protein Heparin-induced Plt Ab Hep Bs Antibody, Quant Crossmatch 12/23/16 12/23/16 12/23/16 06:42 07:46 11:33 WBC RBC Hgb Hct MCV MCHC RDW Plt Count Lymph % (Auto) [place] % (Auto) [place] # Baso # Seg Neutrophils % Seg Neuts % (Manual) Lymphocytes % (Manual) Monocytes % (Manual) Nucleated RBC % Seg Neutrophils # Seg Neutrophils # Man Lymphocytes # (Manual) Monocytes # (Manual) Percent Retic Haptoglobin PT INR Fibrinogen D-Dimer POC ABG pH POC ABG pCO2 POC ABG pO2 Sodium Potassium 3.5 L Chloride 94.7 L Carbon Dioxide 19 L BUN 22 H Creatinine 2.9 H Glucose 401 H POC Glucose 449 H 298 H Lactic Acid Calcium 8.3 L Phosphorus Magnesium Iron TIBC Transferrin Total Bilirubin Direct Bilirubin AST ALT Alkaline Phosphatase Lactate Dehydrogenase CK-MB (CK-2) Troponin T C-Reactive Protein Total Protein Albumin Triglycerides Cholesterol HDL Cholesterol Vitamin B12 Urine Creatinine Urine Total Protein Heparin-induced Plt Ab Hep Bs Antibody, Quant Crossmatch 12/23/16 12/23/16 12/24/16 18:24 21:30 00:00 WBC RBC Hgb Hct MCV MCHC RDW Plt Count Lymph % (Auto) [place] % (Auto) [place] # Baso # Seg Neutrophils % Seg Neuts % (Manual) Lymphocytes % (Manual) Monocytes % (Manual) Nucleated RBC % Seg Neutrophils # Seg Neutrophils # Man Lymphocytes # (Manual) Monocytes # (Manual) Percent Retic Haptoglobin PT INR Fibrinogen D-Dimer POC ABG pH POC ABG pCO2 POC ABG pO2 Sodium Potassium Chloride Carbon Dioxide BUN Creatinine Glucose POC Glucose 177 H 455 H Lactic Acid Calcium Phosphorus Magnesium Iron TIBC Transferrin Total Bilirubin Direct Bilirubin AST ALT Alkaline Phosphatase Lactate Dehydrogenase CK-MB (CK-2) Troponin T C-Reactive Protein Total Protein Albumin Triglycerides Cholesterol HDL Cholesterol Vitamin B12 Urine Creatinine 239.9 H Urine Total Protein Heparin-induced Plt Ab Hep Bs Antibody, Quant Crossmatch 12/24/16 12/24/16 12/24/16 05:00 16:11 18:55 WBC RBC Hgb Hct MCV MCHC RDW Plt Count Lymph % (Auto) [place] % (Auto) [place] # Baso # Seg Neutrophils % Seg Neuts % (Manual) Lymphocytes % (Manual) Monocytes % (Manual) Nucleated RBC % Seg Neutrophils # Seg Neutrophils # Man Lymphocytes # (Manual) Monocytes # (Manual) Percent Retic Haptoglobin PT INR Fibrinogen D-Dimer POC ABG pH POC ABG pCO2 POC ABG pO2 Sodium Potassium 3.1 L Chloride 95.8 L Carbon Dioxide BUN Creatinine 1.8 H Glucose 106 H POC Glucose 175 H 148 H Lactic Acid Calcium Phosphorus Magnesium Iron TIBC Transferrin Total Bilirubin Direct Bilirubin AST ALT Alkaline Phosphatase Lactate Dehydrogenase CK-MB (CK-2) Troponin T C-Reactive Protein Total Protein Albumin Triglycerides Cholesterol HDL Cholesterol Vitamin B12 Urine Creatinine Urine Total Protein Heparin-induced Plt Ab Hep Bs Antibody, Quant Crossmatch 12/24/16 12/24/1617 20:41 22:21 05:03 WBC RBC Hgb Hct MCV MCHC RDW Plt Count Lymph % (Auto) [place] % (Auto) [place] # Baso # Seg Neutrophils % Seg Neuts % (Manual) Lymphocytes % (Manual) Monocytes % (Manual) Nucleated RBC % Seg Neutrophils # Seg Neutrophils # Man Lymphocytes # (Manual) Monocytes # (Manual) Percent Retic Haptoglobin PT INR Fibrinogen D-Dimer POC ABG pH POC ABG pCO2 POC ABG pO2 Sodium Potassium 2.9 L* Chloride Carbon Dioxide BUN Creatinine 2.3 H Glucose 142 H POC Glucose 44 L 111 H Lactic Acid Calcium 8.0 L Phosphorus Magnesium Iron TIBC Transferrin Total Bilirubin Direct Bilirubin AST ALT Alkaline Phosphatase Lactate Dehydrogenase CK-MB (CK-2) Troponin T C-Reactive Protein Total Protein Albumin Triglycerides Cholesterol HDL Cholesterol Vitamin B12 Urine Creatinine Urine Total Protein Heparin-induced Plt Ab Hep Bs Antibody, Quant Crossmatch 12/25/16 12/25/16 12/25/16 07:30 12:08 16:43 WBC RBC Hgb Hct MCV MCHC RDW Plt Count Lymph % (Auto) [place] % (Auto) [place] # Baso # Seg Neutrophils % Seg Neuts % (Manual) Lymphocytes % (Manual) Monocytes % (Manual) Nucleated RBC % Seg Neutrophils # Seg Neutrophils # Man Lymphocytes # (Manual) Monocytes # (Manual) Percent Retic Haptoglobin PT INR Fibrinogen D-Dimer POC ABG pH POC ABG pCO2 POC ABG pO2 Sodium Potassium Chloride Carbon Dioxide BUN Creatinine Glucose POC Glucose 127 H 154 H 235 H Lactic Acid Calcium Phosphorus Magnesium Iron TIBC Transferrin Total Bilirubin Direct Bilirubin AST ALT Alkaline Phosphatase Lactate Dehydrogenase CK-MB (CK-2) Troponin T C-Reactive Protein Total Protein Albumin Triglycerides Cholesterol HDL Cholesterol Vitamin B12 Urine Creatinine Urine Total Protein Heparin-induced Plt Ab Hep Bs Antibody, Quant Crossmatch 12/25/16 12/26/16 12/26/16 23:30 07:49 10:21 WBC RBC Hgb Hct MCV MCHC RDW Plt Count Lymph % (Auto) [place] % (Auto) [place] # Baso # Seg Neutrophils % Seg Neuts % (Manual) Lymphocytes % (Manual) Monocytes % (Manual) Nucleated RBC % Seg Neutrophils # Seg Neutrophils # Man Lymphocytes # (Manual) Monocytes # (Manual) Percent Retic Haptoglobin PT INR Fibrinogen D-Dimer POC ABG pH POC ABG pCO2 POC ABG pO2 Sodium Potassium Chloride Carbon Dioxide BUN Creatinine Glucose POC Glucose 54 L 53 L 154 H Lactic Acid Calcium Phosphorus Magnesium Iron TIBC Transferrin Total Bilirubin Direct Bilirubin AST ALT Alkaline Phosphatase Lactate Dehydrogenase CK-MB (CK-2) Troponin T C-Reactive Protein Total Protein Albumin Triglycerides Cholesterol HDL Cholesterol Vitamin B12 Urine Creatinine Urine Total Protein Heparin-induced Plt Ab Hep Bs Antibody, Quant Crossmatch 12/26/16 12/26/16 12/26/16 12:19 16:14 Unknown WBC RBC Hgb Hct MCV MCHC RDW Plt Count Lymph % (Auto) [place] % (Auto) [place] # Baso # Seg Neutrophils % Seg Neuts % (Manual) Lymphocytes % (Manual) Monocytes % (Manual) Nucleated RBC % Seg Neutrophils # Seg Neutrophils # Man Lymphocytes # (Manual) Monocytes # (Manual) Percent Retic Haptoglobin PT INR Fibrinogen D-Dimer POC ABG pH POC ABG pCO2 POC ABG pO2 Sodium Potassium Chloride Carbon Dioxide BUN Creatinine 2.3 H Glucose POC Glucose 310 H Lactic Acid Calcium 8.3 L Phosphorus Magnesium 1.50 L Iron TIBC Transferrin Total Bilirubin Direct Bilirubin AST ALT Alkaline Phosphatase Lactate Dehydrogenase CK-MB (CK-2) Troponin T C-Reactive Protein Total Protein Albumin Triglycerides Cholesterol HDL Cholesterol Vitamin B12 Urine Creatinine Urine Total Protein Heparin-induced Plt Ab Hep Bs Antibody, Quant Crossmatch 12/26/16 12/26/16 12/27/16 Unknown Unknown 04:47 WBC RBC 2.95 L Hgb 9.0 L Hct 26.5 L MCV MCHC RDW 16.6 H Plt Count Lymph % (Auto) [place] % (Auto) [place] # Baso # Seg Neutrophils % Seg Neuts % (Manual) Lymphocytes % (Manual) Monocytes % (Manual) Nucleated RBC % Seg Neutrophils # Seg Neutrophils # Man Lymphocytes # (Manual) Monocytes # (Manual) Percent Retic Haptoglobin PT INR Fibrinogen D-Dimer POC ABG pH POC ABG pCO2 POC ABG pO2 Sodium Potassium Chloride Carbon Dioxide BUN Creatinine 2.3 H Glucose 157 H POC Glucose 406 H Lactic Acid Calcium 7.7 L Phosphorus Magnesium Iron TIBC Transferrin Total Bilirubin Direct Bilirubin AST ALT Alkaline Phosphatase Lactate Dehydrogenase CK-MB (CK-2) Troponin T C-Reactive Protein Total Protein Albumin Triglycerides Cholesterol HDL Cholesterol Vitamin B12 Urine Creatinine Urine Total Protein Heparin-induced Plt Ab Hep Bs Antibody, Quant Crossmatch 12/27/16 12/27/16 12/27/16 07:54 11:09 15:40 WBC RBC Hgb Hct MCV MCHC RDW Plt Count Lymph % (Auto) [place] % (Auto) [place] # Baso # Seg Neutrophils % Seg Neuts % (Manual) Lymphocytes % (Manual) Monocytes % (Manual) Nucleated RBC % Seg Neutrophils # Seg Neutrophils # Man Lymphocytes # (Manual) Monocytes # (Manual) Percent Retic Haptoglobin PT INR Fibrinogen D-Dimer POC ABG pH POC ABG pCO2 POC ABG pO2 Sodium Potassium Chloride Carbon Dioxide BUN Creatinine Glucose POC Glucose 500 H 301 H 208 H Lactic Acid Calcium Phosphorus Magnesium Iron TIBC Transferrin Total Bilirubin Direct Bilirubin AST ALT Alkaline Phosphatase Lactate Dehydrogenase CK-MB (CK-2) Troponin T C-Reactive Protein Total Protein Albumin Triglycerides Cholesterol HDL Cholesterol Vitamin B12 Urine Creatinine Urine Total Protein Heparin-induced Plt Ab Hep Bs Antibody, Quant Crossmatch 12/27/16 12/28/16 12/28/16 21:00 06:17 07:30 WBC RBC Hgb Hct MCV MCHC RDW Plt Count Lymph % (Auto) [place] % (Auto) [place] # Baso # Seg Neutrophils % Seg Neuts % (Manual) Lymphocytes % (Manual) Monocytes % (Manual) Nucleated RBC % Seg Neutrophils # Seg Neutrophils # Man Lymphocytes # (Manual) Monocytes # (Manual) Percent Retic Haptoglobin PT INR Fibrinogen D-Dimer POC ABG pH POC ABG pCO2 POC ABG pO2 Sodium Potassium 5.1 H D Chloride Carbon Dioxide 19 L BUN 24 H Creatinine 2.0 H Glucose 394 H POC Glucose 347 H 409 H Lactic Acid Calcium 7.7 L Phosphorus Magnesium Iron TIBC Transferrin Total Bilirubin Direct Bilirubin AST ALT Alkaline Phosphatase Lactate Dehydrogenase CK-MB (CK-2) Troponin T C-Reactive Protein Total Protein Albumin Triglycerides Cholesterol HDL Cholesterol Vitamin B12 Urine Creatinine Urine Total Protein Heparin-induced Plt Ab Hep Bs Antibody, Quant Crossmatch 12/28/16 12/28/16 12/28/16 11:33 16:38 20:59 WBC RBC Hgb Hct MCV MCHC RDW Plt Count Lymph % (Auto) [place] % (Auto) [place] # Baso # Seg Neutrophils % Seg Neuts % (Manual) Lymphocytes % (Manual) Monocytes % (Manual) Nucleated RBC % Seg Neutrophils # Seg Neutrophils # Man Lymphocytes # (Manual) Monocytes # (Manual) Percent Retic Haptoglobin PT INR Fibrinogen D-Dimer POC ABG pH POC ABG pCO2 POC ABG pO2 Sodium Potassium Chloride Carbon Dioxide BUN Creatinine Glucose POC Glucose 260 H 240 H 45 L Lactic Acid Calcium Phosphorus Magnesium Iron TIBC Transferrin Total Bilirubin Direct Bilirubin AST ALT Alkaline Phosphatase Lactate Dehydrogenase CK-MB (CK-2) Troponin T C-Reactive Protein Total Protein Albumin Triglycerides Cholesterol HDL Cholesterol Vitamin B12 Urine Creatinine Urine Total Protein Heparin-induced Plt Ab Hep Bs Antibody, Quant Crossmatch 12/28/16 12/29/16 12/29/16 22:14 04:45 05:52 WBC RBC Hgb Hct MCV MCHC RDW Plt Count Lymph % (Auto) [place] % (Auto) [place] # Baso # Seg Neutrophils % Seg Neuts % (Manual) Lymphocytes % (Manual) Monocytes % (Manual) Nucleated RBC % Seg Neutrophils # Seg Neutrophils # Man Lymphocytes # (Manual) Monocytes # (Manual) Percent Retic Haptoglobin PT INR Fibrinogen D-Dimer POC ABG pH POC ABG pCO2 POC ABG pO2 Sodium Potassium Chloride Carbon Dioxide BUN 23 H Creatinine 2.0 H Glucose 166 H POC Glucose 56 L 43 L Lactic Acid Calcium 7.7 L Phosphorus Magnesium Iron TIBC Transferrin Total Bilirubin Direct Bilirubin AST ALT Alkaline Phosphatase Lactate Dehydrogenase CK-MB (CK-2) Troponin T C-Reactive Protein Total Protein Albumin Triglycerides Cholesterol HDL Cholesterol Vitamin B12 Urine Creatinine Urine Total Protein Heparin-induced Plt Ab Hep Bs Antibody, Quant Crossmatch 12/29/16 12/29/16 12/30/16 06:52 11:52 05:00 WBC RBC Hgb Hct MCV MCHC RDW Plt Count Lymph % (Auto) [place] % (Auto) [place] # Baso # Seg Neutrophils % Seg Neuts % (Manual) Lymphocytes % (Manual) Monocytes % (Manual) Nucleated RBC % Seg Neutrophils # Seg Neutrophils # Man Lymphocytes # (Manual) Monocytes # (Manual) Percent Retic Haptoglobin PT INR Fibrinogen D-Dimer POC ABG pH POC ABG pCO2 POC ABG pO2 Sodium Potassium Chloride Carbon Dioxide BUN 20 H Creatinine 2.0 H Glucose 150 H POC Glucose 115 H 143 H Lactic Acid Calcium 7.6 L Phosphorus Magnesium Iron TIBC Transferrin Total Bilirubin Direct Bilirubin AST ALT Alkaline Phosphatase Lactate Dehydrogenase CK-MB (CK-2) Troponin T C-Reactive Protein Total Protein Albumin Triglycerides Cholesterol HDL Cholesterol Vitamin B12 Urine Creatinine Urine Total Protein Heparin-induced Plt Ab Hep Bs Antibody, Quant Crossmatch 12/30/16 12/30/16 07:11 11:36 WBC RBC Hgb Hct MCV MCHC RDW Plt Count Lymph % (Auto) [place] % (Auto) [place] # Baso # Seg Neutrophils % Seg Neuts % (Manual) Lymphocytes % (Manual) Monocytes % (Manual) Nucleated RBC % Seg Neutrophils # Seg Neutrophils # Man Lymphocytes # (Manual) Monocytes # (Manual) Percent Retic Haptoglobin PT INR Fibrinogen D-Dimer POC ABG pH POC ABG pCO2 POC ABG pO2 Sodium Potassium Chloride Carbon Dioxide BUN Creatinine Glucose POC Glucose 162 H 137 H Lactic Acid Calcium Phosphorus Magnesium Iron TIBC Transferrin Total Bilirubin Direct Bilirubin AST ALT Alkaline Phosphatase Lactate Dehydrogenase CK-MB (CK-2) Troponin T C-Reactive Protein Total Protein Albumin Triglycerides Cholesterol HDL Cholesterol Vitamin B12 Urine Creatinine Urine Total Protein Heparin-induced Plt Ab Hep Bs Antibody, Quant Crossmatch CT scan - chest: report reviewed, image reviewed (Right upper lobe opacity and small right pleural effusion.)
--- NOTE | 2016-12-30 15:00 | Progress Note ---
Assessment and Plan Assessment and plan: The patient is a 46-year-old woman with history of insulin-dependent diabetes mellitus, hypertension, recent SAH and dyslipidemia who presented with DKA, AMS and STEMI with V. fib arrest requiring IV amiodarone suppression. she was intubated and subsequently extubated. she was treated with IV insulin drip for documented DKA without ketones documentation but she was acidotic on admission and pressors but subsequently weaned off and transferred to the medical floor. Uncontrolled DM -Labile -CONTINUE CARB CONSISTENT DIET Acute hypoxic respiratory failure. Resolved. Now extubated, stable right upper lobe opacity. Need further evaluation with Pulmonary if patient will benefit from a Bronch. Spesis secondary to Possible aspiration penumonitis. Inital BCX with coagulase negative staff, 1/2 bottles ?contaminate Repeat cultures, no growth. Severe Metabolic acidosis For dialysis today, Neprhology following Cardiac arrest with PEA arrest-->V. fib/?torsades was shocked twice - Likely from hyperkalemia, currently patient is stable. Was treated with amiodarone -Echo EF 40-45% - No recurrence Acute kidney injury secondary to ATN - Nephrology is following. HD Held and being reassessed daily. ASHELY improving. Cr 2.3 for past 3 days NOW 2.0. NO FURTHER NEED FOR DIALYSIS D/C access. Hyperkalemia- monitor, if no resolution, give kayxalate. Metabolic Acidosis, Reoccured, started on Bicitra Malnutrition- Moderate: Nutrition consult DKA: - resolved - On sliding insulin Acute metabolic encephalopathy, resolved Nstemi Type 2- Likely from Shock. Moderate protein calorie malnutrition Thrombocytopenia - Resolved Acute on chronic anemia of chronic disease, s/p total 3 units PRBC this admission - Hemoglobin is stable. will check intermittently Depression - Psych consulted and recommend outpatient mental health follow up. Disposition - Discharge in AM -DVT prophylaxis: SCDs only due to recent SAH History Interval history: Patient seen and examined, denies any new complaints, Sitting up having breakfast at the time of my visit Hospitalist Physical - Physical exam Narrative exam: VITAL SIGNS: Reviewed. GENERAL: The patient appeared normally developed, cachetic. Vital signs as documented. HEAD: No signs of head trauma. temporal wasting noted EYES: Pupils are equal. Extraocular motions intact. EARS: Hearing grossly intact. MOUTH: Oropharynx is normal. NECK: No adenopathy, no JVD. CHEST: Chest with diminshed breath sounds bilaterally. No wheezes, rales, or rhonchi CARDIAC: Regular rate and rhythm. S1 and S2, without murmurs, gallops, or rubs. VASCULAR: Trace Edema. Peripheral pulses normal and equal in all extremities. ABDOMEN: Soft, without detectable tenderness. No sign of distention. No rebound or guarding, and no masses palpated. Bowel Sounds normal. MUSCULOSKELETAL: Good range of motion of all major joints. Extremities without clubbing, cyanosis. Trace edema. NEUROLOGIC EXAM: Alert and oriented x 3. No focal sensory or strength deficits. Speech normal. Follows commands. PSYCHIATRIC: Mood normal. SKIN: No rash or lesions. - Constitutional Vitals: Temp Pulse Resp BP Pulse Ox 98.1 F 95 H 20 141/91 100 12/30/16 12:00 12/30/16 12:00 12/30/16 12:00 12/30/16 12:00 12/30/16 12:00 General appearance: Present: no acute distress (resting comfortably) Results - Labs CBC & Chem 7: 12/26/16 Unknown 12/30/16 05:00 Labs: Laboratory Last Values WBC 7.9 K/mm3 (4.5-11.0) 12/26/16 Unknown RBC 2.95 M/mm3 (3.65-5.03) L 12/26/16 Unknown Hgb 9.0 gm/dl (10.1-14.3) L 12/26/16 Unknown Hct 26.5 % (30.3-42.9) L 12/26/16 Unknown MCV 90 fl (79-97) 12/26/16 Unknown MCH 30 pg (28-32) 12/26/16 Unknown MCHC 34 % (30-34) 12/26/16 Unknown RDW 16.6 % (13.2-15.2) H 12/26/16 Unknown Plt Count 230 K/mm3 (140-440) 12/26/16 Unknown Lymph % (Auto) 8.1 % (13.4-35.0) L 12/22/16 06:45 [place] % (Auto) 5.3 % (0.0-7.3) 12/22/16 06:45 Eos % (Auto) 1.4 % (0.0-4.3) 12/22/16 06:45 Baso % (Auto) 0.9 % (0.0-1.8) 12/22/16 06:45 Lymph # 1.4 K/mm3 (1.2-5.4) 12/22/16 06:45 [place] # 0.9 K/mm3 (0.0-0.8) H 12/22/16 06:45 Eos # 0.2 K/mm3 (0.0-0.4) 12/22/16 06:45 Baso # 0.2 K/mm3 (0.0-0.1) H 12/22/16 06:45 Add Manual Diff Complete 12/13/16 07:49 Total Counted 100 12/13/16 07:49 Seg Neutrophils % 84.3 % (40.0-70.0) H 12/22/16 06:45 Seg Neuts % (Manual) 89.0 % (40.0-70.0) H 12/13/16 07:49 Band Neutrophils % 1.0 % 12/13/16 07:49 Lymphocytes % (Manual) 7.0 % (13.4-35.0) L 12/13/16 07:49 Reactive Lymphs % (Man) 0 % 12/13/16 07:49 Monocytes % (Manual) 3.0 % (0.0-7.3) 12/13/16 07:49 Eosinophils % (Manual) 0 % (0.0-4.3) 12/13/16 07:49 Basophils % (Manual) 0 % (0.0-1.8) 12/13/16 07:49 Metamyelocytes % 0 % 12/13/16 07:49 Myelocytes % 0 % 12/13/16 07:49 Promyelocytes % 0 % 12/13/16 07:49 Blast Cells % 0 % 12/13/16 07:49 Nucleated RBC % Not Reportable 12/13/16 07:49 Seg Neutrophils # 14.6 K/mm3 (1.8-7.7) H 12/22/16 06:45 Seg Neutrophils # Man 21.4 K/mm3 (1.8-7.7) H 12/13/16 07:49 Band Neutrophils # 0.2 K/mm3 12/13/16 07:49 Lymphocytes # (Manual) 1.7 K/mm3 (1.2-5.4) 12/13/16 07:49 Abs React Lymphs (Man) 0.0 K/mm3 12/13/16 07:49 Monocytes # (Manual) 0.7 K/mm3 (0.0-0.8) 12/13/16 07:49 Eosinophils # (Manual) 0.0 K/mm3 (0.0-0.4) 12/13/16 07:49 Basophils # (Manual) 0.0 K/mm3 (0.0-0.1) 12/13/16 07:49 Metamyelocytes # 0.0 K/mm3 12/13/16 07:49 Myelocytes # 0.0 K/mm3 12/13/16 07:49 Promyelocytes # 0.0 K/mm3 12/13/16 07:49 Blast Cells # 0.0 K/mm3 12/13/16 07:49 WBC Morphology Not Reportable 12/13/16 07:49 Hypersegmented Neuts Not Reportable 12/13/16 07:49 Hyposegmented Neuts Not Reportable 12/13/16 07:49 Hypogranular Neuts Not Reportable 12/13/16 07:49 Smudge Cells Not Reportable 12/13/16 07:49 Toxic Granulation Not Reportable 12/13/16 07:49 Toxic Vacuolation Not Reportable 12/13/16 07:49 Dohle Bodies Not Reportable 12/13/16 07:49 Pelger-Huet Anomaly Not Reportable 12/13/16 07:49 Mary Rods Not Reportable 12/13/16 07:49 Platelet Estimate Cons 12/13/16 07:49 Clumped Platelets Not Reportable 12/13/16 07:49 Plt Clumps, EDTA Not Reportable 12/13/16 07:49 Large Platelets Rare 12/13/16 07:49 Giant Platelets Not Reportable 12/13/16 07:49 Platelet Satelliting Not Reportable 12/13/16 07:49 Plt Morphology Comment Not Reportable 12/13/16 07:49 RBC Morphology Not Reportable 12/13/16 07:49 Dimorphic RBCs Not Reportable 12/13/16 07:49 Polychromasia Not Reportable 12/13/16 07:49 Hypochromasia 1+ 12/13/16 07:49 Poikilocytosis Not Reportable 12/13/16 07:49 Anisocytosis 1+ 12/13/16 07:49 Microcytosis Not Reportable 12/13/16 07:49 Macrocytosis Not Reportable 12/13/16 07:49 Spherocytes Not Reportable 12/13/16 07:49 Pappenheimer Bodies Not Reportable 12/13/16 07:49 Sickle Cells Not Reportable 12/13/16 07:49 Target Cells Few 12/13/16 07:49 Tear Drop Cells Not Reportable 12/13/16 07:49 Ovalocytes Not Reportable 12/13/16 07:49 Helmet Cells Not Reportable 12/13/16 07:49 [place] Bodies Not Reportable 12/13/16 07:49 [place] Rings Not Reportable 12/13/16 07:49 Drain Cells Not Reportable 12/13/16 07:49 Bite Cells Not Reportable 12/13/16 07:49 Crenated Cell Not Reportable 12/13/16 07:49 Elliptocytes Not Reportable 12/13/16 07:49 Acanthocytes (Spur) Not Reportable 12/13/16 07:49 Rouleaux Not Reportable 12/13/16 07:49 Hemoglobin C Crystals Not Reportable 12/13/16 07:49 Schistocytes Not Reportable 12/13/16 07:49 Malaria parasites Not Reportable 12/13/16 07:49 Percent Retic 0.23 % (0.78-2.58) L 12/09/16 11:29 Michael Bodies Not Reportable 12/13/16 07:49 Haptoglobin 271 mg/dL (43-212) H 12/08/16 21:30 Hem Pathologist Commnt No 12/13/16 07:49 PT 15.3 Sec. (12.2-14.9) H 12/08/16 19:00 INR 1.22 (0.87-1.13) H 12/08/16 19:00 APTT 36.2 Sec. (24.2-36.6) 12/08/16 19:00 Fibrinogen 563 mg/dl (211-480) H 12/08/16 19:00 D-Dimer 5507.36 ng/mlDDU (0-234) H 12/08/16 19:00 Heparin Anti-Xa, Unfract Negative (Negative) 12/09/16 13:27 POC ABG pH 7.326 (7.35-7.45) L 12/09/16 12:02 POC ABG pCO2 37.7 (35-45) 12/09/16 12:02 POC ABG pO2 115 (80-105) H 12/09/16 12:02 POC ABG HCO3 19.7 12/09/16 12:02 POC ABG Total CO2 21 12/09/16 12:02 POC ABG O2 Sat 98 12/09/16 12:02 POC ABG Base Excess -6 12/09/16 12:02 FiO2 30 % 12/09/16 12:02 Sodium 142 mmol/L (137-145) 12/30/16 05:00 Potassium 4.6 mmol/L (3.6-5.0) 12/30/16 05:00 Chloride 105.3 mmol/L (98-107) 12/30/16 05:00 Carbon Dioxide 25 mmol/L (22-30) 12/30/16 05:00 Anion Gap 16 mmol/L 12/30/16 05:00 BUN 20 mg/dL (7-17) H 12/30/16 05:00 Creatinine 2.0 mg/dL (0.7-1.2) H 12/30/16 05:00 Estimated GFR 32 ml/min 12/30/16 05:00 BUN/Creatinine Ratio 10.00 % 12/30/16 05:00 Glucose 150 mg/dL (65-100) H 12/30/16 05:00 POC Glucose 137 (70-105) H 12/30/16 11:36 Lactic Acid 6.90 mmol/L (0.7-2.0) H* 12/07/16 07:30 Calcium 7.6 mg/dL (8.4-10.2) L 12/30/16 05:00 Phosphorus 2.60 mg/dL (2.5-4.5) 12/26/16 Unknown Magnesium 1.50 mg/dL (1.7-2.3) L 12/26/16 12:19 Iron 66 ug/dL (37-170) 12/21/16 05:00 TIBC 193.20 mcg/dL (250-450) L 12/21/16 05:00 Transferrin 138 mg/dl (192-382) L 12/21/16 05:00 Ferritin 321.4 ng/mL (13.0-400.0) 12/21/16 05:00 Total Bilirubin 1.40 mg/dL (0.1-1.2) H 12/07/16 21:35 Direct Bilirubin 0.9 mg/dL (0-0.2) H 12/07/16 21:35 Indirect Bilirubin 0.5 mg/dL 12/07/16 21:35 AST 94 units/L (5-40) H 12/07/16 21:35 ALT 142 units/L (7-56) H 12/07/16 21:35 Alkaline Phosphatase 249 units/L (35-129) H 12/07/16 21:35 Lactate Dehydrogenase 382 units/L (91-180) H 12/08/16 19:00 Total Creatine Kinase 123 units/L (30-135) 12/04/16 09:55 CK-MB (CK-2) 4.6 ng/mL (0.0-4.0) H 12/04/16 09:55 CK-MB (CK-2) Rel Index 3.7 (0-4) 12/04/16 09:55 Troponin T 0.140 ng/mL (0.00-0.029) H* D 12/04/16 09:55 C-Reactive Protein 39.40 mg/dL (0.00-1.30) H 12/07/16 06:00 Total Protein 4.6 g/dL (6.3-8.2) L D 12/07/16 21:35 Albumin 2.1 g/dL (3.9-5) L 12/07/16 21:35 Albumin/Globulin Ratio 0.8 % 12/07/16 21:35 Triglycerides 570 mg/dL (2-149) H 12/04/16 07:55 Cholesterol 221 mg/dL (50-199) H 12/04/16 07:55 LDL Cholesterol Direct TNR 12/04/16 07:55 HDL Cholesterol 37 mg/dL (40-59) L 12/04/16 07:55 Cholesterol/HDL Ratio 5.97 % 12/04/16 07:55 Serotonin Release Assay See scanned report 12/09/16 13:27 Vitamin B12 > 2000 pg/mL (211-911) H 12/09/16 13:27 Folate 8.10 ng/mL (7.3-26.0) 12/09/16 13:27 TSH 1.600 mlU/mL (0.270-4.200) 12/03/16 23:20 Urine Color Yellow (Yellow) 12/04/16 11:25 Urine Turbidity Slightly-cloudy (Clear) 12/04/16 11:25 Urine pH 5.0 (5.0-7.0) 12/04/16 11:25 Ur Specific [place] 1.018 (1.003-1.030) 12/04/16 11:25 Urine Protein 30 mg/dl mg/dL (Negative) 12/04/16 11:25 Urine Glucose (UA) >=500 mg/dL (Negative) 12/04/16 11:25 Urine Ketones Tr mg/dL (Negative) 12/04/16 11:25 Urine Blood Sm (Negative) 12/04/16 11:25 Urine Nitrite Neg (Negative) 12/04/16 11:25 Urine Bilirubin Neg (Negative) 12/04/16 11:25 Urine Urobilinogen < 2.0 mg/dL (<2.0) 12/04/16 11:25 Ur Leukocyte Esterase Neg (Negative) 12/04/16 11:25 Urine WBC (Auto) 4.0 /HPF (0.0-6.0) 12/04/16 11:25 Urine RBC (Auto) 2.0 /HPF (0.0-6.0) 12/04/16 11:25 U Epithel Cells (Auto) < 1.0 /HPF (0-13.0) 12/04/16 11:25 Urine Mucus Few /HPF 12/04/16 11:25 Urine Osmolality 419 Mosm/kg 12/04/16 11:25 Urine Total Volume 200 12/24/16 00:00 Urine Creatinine 239.9 mg/dL (0.1-20.0) H 12/24/16 00:00 Height (in) 64.0 inches 12/24/16 00:00 Weight (lb) 114.0 lbs 12/24/16 00:00 Creatinine Clearance 12 12/24/16 00:00 Protein/Creatinin Ratio 1.12 12/04/16 11:25 Urine Sodium 26 mEq/L 12/04/16 11:25 Urine Total Protein 33 mg/dL (5-11.8) H 12/04/16 11:25 Urine Opiates Screen Presumptive negative 12/04/16 11:25 Urine Methadone Screen Presumptive negative 12/04/16 11:25 Ur Barbiturates Screen Presumptive negative 12/04/16 11:25 Ur Phencyclidine Scrn Presumptive negative 12/04/16 11:25 Ur Amphetamines Screen Presumptive negative 12/04/16 11:25 U Benzodiazepines Scrn Presumptive negative 12/04/16 11:25 Urine Cocaine Screen Presumptive negative 12/04/16 11:25 U Marijuana (THC) Screen Presumptive positive 12/04/16 11:25 Drugs of Abuse Note Disclamer 12/04/16 11:25 Heparin-induced Plt Ab Weak positive (Negative) H 12/09/16 13:27 UF Heparin High Dose 0 % Release 12/09/16 13:27 ADRIENNE UFH Low Dose 0.1 0 % Release 12/09/16 13:27 ADRIENNE UFH Low Dose 0.5 0 % Release 12/09/16 13:27 Hep Bs Antigen Non-reactive (Negative) 12/09/16 13:27 Hep Bs Antibody, Quant <5 mIU/mL (>=10) L 12/09/16 13:27 Hep B Core Total Ab Nonreactive (Nonreactive) 12/09/16 13:27 Hepatitis C Antibody Non-reactive (NonReactive) 12/09/16 13:27 HIV 1&2 Antibody Rapid Non react (Non React) 12/09/16 13:27 HIV P24 Antigen Non react (Non React) 12/09/16 13:27 Schistocytes Smear None seen 12/09/16 11:29 Blood Type O POSITIVE 12/22/16 15:46 Antibody Screen TNR 12/22/16 15:46 ISAIAH Antibody Screen Negative 12/22/16 15:46 Crossmatch See Detail 12/22/16 15:46
[2016-12-30] MEDS: BENADRYL PO PRN ×2 (15:28→23:50)
[2016-12-30] MEDS: PERCOCET 5/325 PO PRN ×2 (15:28→23:50)
[2016-12-30] MEDS ORDERED: D50W (25GM) IV ONE (22:36)
[2016-12-31 07:43] LABS: BUN/Creatinine Ratio 12.5; Calcium 7.4 mg/dL (8.4-10.2); Chloride 106.7 mmol/L (98-107); Potassium 4.2 mmol/L (3.6-5.0)
[2016-12-31] MEDS ORDERED: D50W (25GM) IV ONE ×2 (07:54→09:00)
[2016-12-31] MEDS: NOVOLOG SUB-Q SCH ×4 (08:00→21:42)
[2016-12-31] MEDS: LOPRESSOR PO SCH ×2 (10:00→21:18)
[2016-12-31] MEDS: PEPCID PO SCH (10:00)
[2016-12-31] MEDS: LOVENOX SUB-Q SCH (10:00)
--- NOTE | 2016-12-31 10:40 | Procedure Note ---
Date of procedure: 12/31/16 Pre-op diagnosis: RUL Lung Mass Post-op diagnosis: same Procedure: FIBEROPTIC BRONCHOSCOPY WITH TRANSBRONCHIAL BIOPSIES (Full dictation # [id number]) Please see dictated notes for full details
[2016-12-31] MEDS: NACL 0.9% 1000 ML 1,000 ML IV SCH (13:22)
[2016-12-31] MEDS ORDERED: LIDOCAINE VISCOUS 2% ONE (13:24)
[2016-12-31] MEDS ORDERED: XYLOCAINE 1% 20 mL ONE (13:24)
[2016-12-31] MEDS ORDERED: HURRICAINE ONE 20% TOPICAL SPRAY MM (13:25)
[2016-12-31] MEDS ORDERED: ADRENALIN ONE (13:25)
[2016-12-31] MEDS ORDERED: WATER FOR IRRIG STERILE IR ONE (13:32)
[2016-12-31] MEDS ORDERED: SUBLIMAZE ONE (13:48)
[2016-12-31] MEDS ORDERED: VERSED ONE (13:48)
[2016-12-31] MEDS ORDERED: DIPRIVAN 10 MG/ML IV ONE (13:49)
[2016-12-31] MEDS ORDERED: LIDOCAINE VISCOUS 2% PO ONE ×3 (13:50→14:15)
--- NOTE | 2016-12-31 13:52 | Anesthesia Day of Surgery ---
Anesthesia Day of Surgery - Day of Surgery Patient Examined: Yes Patient H&P Reviewed: Yes Patient is NPO: Yes
--- NOTE | 2016-12-31 13:58 | Anesthesia Consultation ---
<IONA TOLEDO - Last Filed: 12/31/16 13:55> Anesthesia Consult and Med Hx Date of service: 12/31/16 - Airway Anesthetic Teeth Evaluation: Edentulous ROM Head & Neck: Adequate Mental/Hyoid Distance: Adequate Mallampati Class: Class II Intubation Access Assessment: Probably Good - Pulmonary Exam CTA: Yes (wheezing, SOB, needs O2 to feel comfortable) - Cardiac Exam Cardiac Exam: RRR - Pre-Operative Health Status ASA Pre-Surgery Classification: ASA4 Proposed Anesthetic Plan: MAC - Pulmonary Hx Smoking: Yes (occasional cigarette) Hx Asthma: No SOB: Yes COPD: No Hx Pneumonia: Yes - Cardiovascular System Hx Hypertension: Yes Hx Heart Attack/AMI: Yes (on arrival to ER, VFIB and Amiodarone used, converted and stable now) Hx Cardia Arrhythmia: Yes (HX of VFIB) Hx Pacemaker: No Hx Internal Defibrillator: No - Central Nervous System Hx Psychiatric Problems: No - Endocrine Hx End Stage Renal Disease: No Hx Insulin Dependent Diabetes: Yes (DKA on arrival, BS 113 in preop) - Hematic Hx Anemia: Yes Hx Sickle Cell Disease: No <MEKHI NORIEGA - Last Filed: 12/31/16 14:14> Anesthesia Consult and Med Hx - Cardiovascular System Hx Heart Attack/AMI: Yes (STEMI on arrival to ER, VFIB and Amiodarone used, converted and stable now) - Endocrine Hx End Stage Renal Disease: No (Had to be dialysed recently. Cr now ~2. No longer on dialysis.) Hx Insulin Dependent Diabetes: Yes (DKA on arrival to ER 12/03/2016. BS 113 in preop)
[2016-12-31] MEDS ORDERED: LOPRESSOR IV ONE (14:34)
[2016-12-31] MEDS ORDERED: XYLOCAINE 1% 20 mL INFILTRATI ONE ×2 (14:38→14:40)
--- NOTE | 2016-12-31 15:06 | Post Anesthesia Evaluation ---
- Post Anesthesia Evaluation Patient Participated: Yes Airway Patent: Yes Stable Respiratory Function: Yes Nausea/Vomiting: No Temp > 96.8F: Yes Pain Manageable: Yes Adequeate Hydration: No
--- NOTE | 2016-12-31 15:09 | Event Note ---
Date: 12/31/16 patient was not in her room, she was getting bronchoscopy, Cr cont to improve, ready to be discharged from standpoint, to be followed in our office after discharge. will sign off. please call if any question.
--- NOTE | 2016-12-31 15:33 | XRay Report ---
PORTABLE CHEST INDICATION: Pneumothorax, post bronchoscopy. COMPARISON: 12/29/2016 FINDINGS: Portable, frontal chest radiograph demonstrates stable cardiomediastinal silhouette/mild cardiomegaly. Prominent/crowded lung markings/mild atelectasis, given limited inspiration. No pneumothorax. Approximately 4.4 cm peripheral right mid lung opacity again seen. Right hemidiaphragm slightly elevated. Stable left upper extremity PICC tip in the right atrium, approximately 3 cm below the cavoatrial junction. Interval right IJ catheter removal. Umbilical piercing ornament incidentally seen. Intact bones. CONCLUSION: Interval right-sided central catheter removal without evidence of pneumothorax with various other stable findings, as above. Thank you for the opportunity to participate in this patient's care.
--- NOTE | 2016-12-31 15:41 | Progress Note ---
Assessment and Plan Assessment and plan: The patient is a 46-year-old woman with history of insulin-dependent diabetes mellitus, hypertension, recent SAH and dyslipidemia who presented with DKA, AMS and STEMI with V. fib arrest requiring IV amiodarone suppression. she was intubated and subsequently extubated. she was treated with IV insulin drip for documented DKA without ketones documentation but she was acidotic on admission and pressors but subsequently weaned off and transferred to the medical floor. Uncontrolled DM -Labile -CONTINUE CARB CONSISTENT DIET -Discontinue schedulled insulin. Continue slidding scale due to recurrent hypoglycemia Acute hypoxic respiratory failure. Resolved. Now extubated, stable right upper lobe opacity. Bronch for today, await Pathology Spesis secondary to Possible aspiration penumonitis. Inital BCX with coagulase negative staff, 1/2 bottles ?contaminate Repeat cultures, no growth. Discontinue abx Severe Metabolic acidosis Resolved. Neprhology following Cardiac arrest with PEA arrest-->V. fib/?torsades was shocked twice - Likely from hyperkalemia, currently patient is stable. Was treated with amiodarone -Echo EF 40-45% - No recurrence Acute kidney injury secondary to ATN - Nephrology is following. HD Held ASHELY improving. Cr 2.3 for past 3 days NOW 1.6. NO FURTHER NEED FOR DIALYSIS Hyperkalemia- Resp;jackson. Malnutrition- Moderate: Nutrition consult DKA: - resolved - On sliding insulin Acute metabolic encephalopathy, resolved Nstemi Type 2- Likely from Shock. Moderate protein calorie malnutrition Thrombocytopenia - Resolved Acute on chronic anemia of chronic disease, s/p total 3 units PRBC this admission - Hemoglobin is stable. will check intermittently Depression - Psych consulted and recommend outpatient mental health follow up. Disposition -PENDING PATHOLOGY -DVT prophylaxis: SCDs only due to recent SAH History Interval history: Patient seen and examined, denies any new complaints, Sitting up having breakfast at the time of my visit Hospitalist Physical - Physical exam Narrative exam: VITAL SIGNS: Reviewed. GENERAL: The patient appeared normally developed, cachetic. Vital signs as documented. HEAD: No signs of head trauma. temporal wasting noted EYES: Pupils are equal. Extraocular motions intact. EARS: Hearing grossly intact. MOUTH: Oropharynx is normal. NECK: No adenopathy, no JVD. CHEST: Chest with diminshed breath sounds bilaterally. No wheezes, rales, or rhonchi CARDIAC: Regular rate and rhythm. S1 and S2, without murmurs, gallops, or rubs. VASCULAR: Trace Edema. Peripheral pulses normal and equal in all extremities. ABDOMEN: Soft, without detectable tenderness. No sign of distention. No rebound or guarding, and no masses palpated. Bowel Sounds normal. MUSCULOSKELETAL: Good range of motion of all major joints. Extremities without clubbing, cyanosis. Trace edema. NEUROLOGIC EXAM: Alert and oriented x 3. No focal sensory or strength deficits. Speech normal. Follows commands. PSYCHIATRIC: Mood normal. SKIN: No rash or lesions. - Constitutional Vitals: Temp Pulse Resp BP Pulse Ox 98.7 F 109 H 12 151/98 100 12/31/16 14:56 12/31/16 15:26 12/31/16 15:26 12/31/16 15:26 12/31/16 15:26 General appearance: Present: no acute distress (resting comfortably) Results - Labs CBC & Chem 7: 12/26/16 Unknown 12/31/16 06:38 Labs: Laboratory Last Values WBC 7.9 K/mm3 (4.5-11.0) 12/26/16 Unknown RBC 2.95 M/mm3 (3.65-5.03) L 12/26/16 Unknown Hgb 9.0 gm/dl (10.1-14.3) L 12/26/16 Unknown Hct 26.5 % (30.3-42.9) L 12/26/16 Unknown MCV 90 fl (79-97) 12/26/16 Unknown MCH 30 pg (28-32) 12/26/16 Unknown MCHC 34 % (30-34) 12/26/16 Unknown RDW 16.6 % (13.2-15.2) H 12/26/16 Unknown Plt Count 230 K/mm3 (140-440) 12/26/16 Unknown Lymph % (Auto) 8.1 % (13.4-35.0) L 12/22/16 06:45 Whitman % (Auto) 5.3 % (0.0-7.3) 12/22/16 06:45 Eos % (Auto) 1.4 % (0.0-4.3) 12/22/16 06:45 Baso % (Auto) 0.9 % (0.0-1.8) 12/22/16 06:45 Lymph # 1.4 K/mm3 (1.2-5.4) 12/22/16 06:45 Whitman # 0.9 K/mm3 (0.0-0.8) H 12/22/16 06:45 Eos # 0.2 K/mm3 (0.0-0.4) 12/22/16 06:45 Baso # 0.2 K/mm3 (0.0-0.1) H 12/22/16 06:45 Add Manual Diff Complete 12/13/16 07:49 Total Counted 100 12/13/16 07:49 Seg Neutrophils % 84.3 % (40.0-70.0) H 12/22/16 06:45 Seg Neuts % (Manual) 89.0 % (40.0-70.0) H 12/13/16 07:49 Band Neutrophils % 1.0 % 12/13/16 07:49 Lymphocytes % (Manual) 7.0 % (13.4-35.0) L 12/13/16 07:49 Reactive Lymphs % (Man) 0 % 12/13/16 07:49 Monocytes % (Manual) 3.0 % (0.0-7.3) 12/13/16 07:49 Eosinophils % (Manual) 0 % (0.0-4.3) 12/13/16 07:49 Basophils % (Manual) 0 % (0.0-1.8) 12/13/16 07:49 Metamyelocytes % 0 % 12/13/16 07:49 Myelocytes % 0 % 12/13/16 07:49 Promyelocytes % 0 % 12/13/16 07:49 Blast Cells % 0 % 12/13/16 07:49 Nucleated RBC % Not Reportable 12/13/16 07:49 Seg Neutrophils # 14.6 K/mm3 (1.8-7.7) H 12/22/16 06:45 Seg Neutrophils # Man 21.4 K/mm3 (1.8-7.7) H 12/13/16 07:49 Band Neutrophils # 0.2 K/mm3 12/13/16 07:49 Lymphocytes # (Manual) 1.7 K/mm3 (1.2-5.4) 12/13/16 07:49 Abs React Lymphs (Man) 0.0 K/mm3 12/13/16 07:49 Monocytes # (Manual) 0.7 K/mm3 (0.0-0.8) 12/13/16 07:49 Eosinophils # (Manual) 0.0 K/mm3 (0.0-0.4) 12/13/16 07:49 Basophils # (Manual) 0.0 K/mm3 (0.0-0.1) 12/13/16 07:49 Metamyelocytes # 0.0 K/mm3 12/13/16 07:49 Myelocytes # 0.0 K/mm3 12/13/16 07:49 Promyelocytes # 0.0 K/mm3 12/13/16 07:49 Blast Cells # 0.0 K/mm3 12/13/16 07:49 WBC Morphology Not Reportable 12/13/16 07:49 Hypersegmented Neuts Not Reportable 12/13/16 07:49 Hyposegmented Neuts Not Reportable 12/13/16 07:49 Hypogranular Neuts Not Reportable 12/13/16 07:49 Smudge Cells Not Reportable 12/13/16 07:49 Toxic Granulation Not Reportable 12/13/16 07:49 Toxic Vacuolation Not Reportable 12/13/16 07:49 Dohle Bodies Not Reportable 12/13/16 07:49 Pelger-Huet Anomaly Not Reportable 12/13/16 07:49 Mary Rods Not Reportable 12/13/16 07:49 Platelet Estimate Cons 12/13/16 07:49 Clumped Platelets Not Reportable 12/13/16 07:49 Plt Clumps, EDTA Not Reportable 12/13/16 07:49 Large Platelets Rare 12/13/16 07:49 Giant Platelets Not Reportable 12/13/16 07:49 Platelet Satelliting Not Reportable 12/13/16 07:49 Plt Morphology Comment Not Reportable 12/13/16 07:49 RBC Morphology Not Reportable 12/13/16 07:49 Dimorphic RBCs Not Reportable 12/13/16 07:49 Polychromasia Not Reportable 12/13/16 07:49 Hypochromasia 1+ 12/13/16 07:49 Poikilocytosis Not Reportable 12/13/16 07:49 Anisocytosis 1+ 12/13/16 07:49 Microcytosis Not Reportable 12/13/16 07:49 Macrocytosis Not Reportable 12/13/16 07:49 Spherocytes Not Reportable 12/13/16 07:49 Pappenheimer Bodies Not Reportable 12/13/16 07:49 Sickle Cells Not Reportable 12/13/16 07:49 Target Cells Few 12/13/16 07:49 Tear Drop Cells Not Reportable 12/13/16 07:49 Ovalocytes Not Reportable 12/13/16 07:49 Helmet Cells Not Reportable 12/13/16 07:49 [place] Bodies Not Reportable 12/13/16 07:49 Golden Rings Not Reportable 12/13/16 07:49 Allen Cells Not Reportable 12/13/16 07:49 Bite Cells Not Reportable 12/13/16 07:49 Crenated Cell Not Reportable 12/13/16 07:49 Elliptocytes Not Reportable 12/13/16 07:49 Acanthocytes (Spur) Not Reportable 12/13/16 07:49 Rouleaux Not Reportable 12/13/16 07:49 Hemoglobin C Crystals Not Reportable 12/13/16 07:49 Schistocytes Not Reportable 12/13/16 07:49 Malaria parasites Not Reportable 12/13/16 07:49 Percent Retic 0.23 % (0.78-2.58) L 12/09/16 11:29 Michael Bodies Not Reportable 12/13/16 07:49 Haptoglobin 271 mg/dL (43-212) H 12/08/16 21:30 Hem Pathologist Commnt No 12/13/16 07:49 PT 15.3 Sec. (12.2-14.9) H 12/08/16 19:00 INR 1.22 (0.87-1.13) H 12/08/16 19:00 APTT 36.2 Sec. (24.2-36.6) 12/08/16 19:00 Fibrinogen 563 mg/dl (211-480) H 12/08/16 19:00 D-Dimer 5507.36 ng/mlDDU (0-234) H 12/08/16 19:00 Heparin Anti-Xa, Unfract Negative (Negative) 12/09/16 13:27 POC ABG pH 7.326 (7.35-7.45) L 12/09/16 12:02 POC ABG pCO2 37.7 (35-45) 12/09/16 12:02 POC ABG pO2 115 (80-105) H 12/09/16 12:02 POC ABG HCO3 19.7 12/09/16 12:02 POC ABG Total CO2 21 12/09/16 12:02 POC ABG O2 Sat 98 12/09/16 12:02 POC ABG Base Excess -6 12/09/16 12:02 FiO2 30 % 12/09/16 12:02 Sodium 144 mmol/L (137-145) 12/31/16 06:38 Potassium 4.2 mmol/L (3.6-5.0) 12/31/16 06:38 Chloride 106.7 mmol/L (98-107) 12/31/16 06:38 Carbon Dioxide 24 mmol/L (22-30) 12/31/16 06:38 Anion Gap 18 mmol/L 12/31/16 06:38 BUN 20 mg/dL (7-17) H 12/31/16 06:38 Creatinine 1.6 mg/dL (0.7-1.2) H 12/31/16 06:38 Estimated GFR 42 ml/min 12/31/16 06:38 BUN/Creatinine Ratio 12.50 % 12/31/16 06:38 Glucose 28 mg/dL (65-100) L* 12/31/16 06:38 POC Glucose 113 (70-105) H 12/31/16 12:59 Lactic Acid 6.90 mmol/L (0.7-2.0) H* 12/07/16 07:30 Calcium 7.4 mg/dL (8.4-10.2) L 12/31/16 06:38 Phosphorus 2.60 mg/dL (2.5-4.5) 12/26/16 Unknown Magnesium 1.50 mg/dL (1.7-2.3) L 12/26/16 12:19 Iron 66 ug/dL (37-170) 12/21/16 05:00 TIBC 193.20 mcg/dL (250-450) L 12/21/16 05:00 Transferrin 138 mg/dl (192-382) L 12/21/16 05:00 Ferritin 321.4 ng/mL (13.0-400.0) 12/21/16 05:00 Total Bilirubin 1.40 mg/dL (0.1-1.2) H 12/07/16 21:35 Direct Bilirubin 0.9 mg/dL (0-0.2) H 12/07/16 21:35 Indirect Bilirubin 0.5 mg/dL 12/07/16 21:35 AST 94 units/L (5-40) H 12/07/16 21:35 ALT 142 units/L (7-56) H 12/07/16 21:35 Alkaline Phosphatase 249 units/L (35-129) H 12/07/16 21:35 Lactate Dehydrogenase 382 units/L (91-180) H 12/08/16 19:00 Total Creatine Kinase 123 units/L (30-135) 12/04/16 09:55 CK-MB (CK-2) 4.6 ng/mL (0.0-4.0) H 12/04/16 09:55 CK-MB (CK-2) Rel Index 3.7 (0-4) 12/04/16 09:55 Troponin T 0.140 ng/mL (0.00-0.029) H* D 12/04/16 09:55 C-Reactive Protein 39.40 mg/dL (0.00-1.30) H 12/07/16 06:00 Total Protein 4.6 g/dL (6.3-8.2) L D 12/07/16 21:35 Albumin 2.1 g/dL (3.9-5) L 12/07/16 21:35 Albumin/Globulin Ratio 0.8 % 12/07/16 21:35 Triglycerides 570 mg/dL (2-149) H 12/04/16 07:55 Cholesterol 221 mg/dL (50-199) H 12/04/16 07:55 LDL Cholesterol Direct TNR 12/04/16 07:55 HDL Cholesterol 37 mg/dL (40-59) L 12/04/16 07:55 Cholesterol/HDL Ratio 5.97 % 12/04/16 07:55 Serotonin Release Assay See scanned report 12/09/16 13:27 Vitamin B12 > 2000 pg/mL (211-911) H 12/09/16 13:27 Folate 8.10 ng/mL (7.3-26.0) 12/09/16 13:27 TSH 1.600 mlU/mL (0.270-4.200) 12/03/16 23:20 Urine Color Yellow (Yellow) 12/04/16 11:25 Urine Turbidity Slightly-cloudy (Clear) 12/04/16 11:25 Urine pH 5.0 (5.0-7.0) 12/04/16 11:25 Ur Specific Magna 1.018 (1.003-1.030) 12/04/16 11:25 Urine Protein 30 mg/dl mg/dL (Negative) 12/04/16 11:25 Urine Glucose (UA) >=500 mg/dL (Negative) 12/04/16 11:25 Urine Ketones Tr mg/dL (Negative) 12/04/16 11:25 Urine Blood Sm (Negative) 12/04/16 11:25 Urine Nitrite Neg (Negative) 12/04/16 11:25 Urine Bilirubin Neg (Negative) 12/04/16 11:25 Urine Urobilinogen < 2.0 mg/dL (<2.0) 12/04/16 11:25 Ur Leukocyte Esterase Neg (Negative) 12/04/16 11:25 Urine WBC (Auto) 4.0 /HPF (0.0-6.0) 12/04/16 11:25 Urine RBC (Auto) 2.0 /HPF (0.0-6.0) 12/04/16 11:25 U Epithel Cells (Auto) < 1.0 /HPF (0-13.0) 12/04/16 11:25 Urine Mucus Few /HPF 12/04/16 11:25 Urine Osmolality 419 Mosm/kg 12/04/16 11:25 Urine Total Volume 200 12/24/16 00:00 Urine Creatinine 239.9 mg/dL (0.1-20.0) H 12/24/16 00:00 Height (in) 64.0 inches 12/24/16 00:00 Weight (lb) 114.0 lbs 12/24/16 00:00 Creatinine Clearance 12 12/24/16 00:00 Protein/Creatinin Ratio 1.12 12/04/16 11:25 Urine Sodium 26 mEq/L 12/04/16 11:25 Urine Total Protein 33 mg/dL (5-11.8) H 12/04/16 11:25 Urine Opiates Screen Presumptive negative 12/04/16 11:25 Urine Methadone Screen Presumptive negative 12/04/16 11:25 Ur Barbiturates Screen Presumptive negative 12/04/16 11:25 Ur Phencyclidine Scrn Presumptive negative 12/04/16 11:25 Ur Amphetamines Screen Presumptive negative 12/04/16 11:25 U Benzodiazepines Scrn Presumptive negative 12/04/16 11:25 Urine Cocaine Screen Presumptive negative 12/04/16 11:25 U Marijuana (THC) Screen Presumptive positive 12/04/16 11:25 Drugs of Abuse Note Disclamer 12/04/16 11:25 Heparin-induced Plt Ab Weak positive (Negative) H 12/09/16 13:27 UF Heparin High Dose 0 % Release 12/09/16 13:27 ADRIENNE UFH Low Dose 0.1 0 % Release 12/09/16 13:27 ADRIENNE UFH Low Dose 0.5 0 % Release 12/09/16 13:27 Hep Bs Antigen Non-reactive (Negative) 12/09/16 13:27 Hep Bs Antibody, Quant <5 mIU/mL (>=10) L 12/09/16 13:27 Hep B Core Total Ab Nonreactive (Nonreactive) 12/09/16 13:27 Hepatitis C Antibody Non-reactive (NonReactive) 12/09/16 13:27 HIV 1&2 Antibody Rapid Non react (Non React) 12/09/16 13:27 HIV P24 Antigen Non react (Non React) 12/09/16 13:27 Schistocytes Smear None seen 12/09/16 11:29 Blood Type O POSITIVE 12/22/16 15:46 Antibody Screen TNR 12/22/16 15:46 ISAIAH Antibody Screen Negative 12/22/16 15:46 Crossmatch See Detail 12/22/16 15:46
[2016-12-31] MEDS: BENADRYL PO PRN (21:26)
[2016-12-31] MEDS: PERCOCET 5/325 PO PRN (21:26)
[2017-01-01 02:34] LABS: BUN/Creatinine Ratio 13.75; Calcium 7.8 mg/dL (8.4-10.2); Chloride 102.5 mmol/L (98-107); Potassium 5.2 mmol/L (3.6-5.0)
[2017-01-01] MEDS ORDERED: MAGNESIUM SULFATE 1 GM in NACL 0.9% 50 ML IV ONE (04:31)
--- NOTE | 2017-01-01 05:56 | Operative Report ---
PROCEDURE: Fiberoptic bronchoscopy with transbronchial biopsies. INDICATION: Persistent right upper lobe lung mass/consolidation despite treatment with broad-spectrum antibiotic therapy. Consent was informed and witnessed, obtained from the patient herself. COMPLICATIONS: No immediate procedural complications. PROCEDURE DETAILS: After informed and witnessed consent as well as sedation, which was performed by the anesthesiologist throughout the whole procedure, the fiberoptic bronchoscope was passed through the right nostril into the nasopharynx and advanced distally into the hypopharyngeal regions. Vocal cords were located. Topical lidocaine was applied over the vocal cords, about 6 mL of topical lidocaine. The trachea was then entered. The tracheobronchial tree really was mostly erythematous and in particular the trachea. She had earlier been intubated in this admission and it looked more like possible trauma from the endotracheal tube and erythema than it did look like actual lesions. A quick endobronchial survey was done. The left lung was evaluated. The left upper lobe, lingula, left lower lobe basilar deviations, all were devoid of gross endobronchial lesions. There were areas of patchy erythema. The right bronchial tree was then entered. The right lower lobe basilar segments, right middle lobe were all evaluated. Superior segment of the right lower lobe also. No gross endobronchial lesions were seen. Fiberoptic bronchoscope was then withdrawn and the right upper lobe was entered. There was much more significant inflammation in the right upper lobe, but not in particular around any segment. The segment that was most likely the anterior segment was initially entered. Transbronchial biopsies were taken from the segment and then posterior segment transbronchial biopsies were taken from the segment under fluoroscopic guidance just to ensure that I was actually in the area of concern. Brushings were done next and then bronchioalveolar lavage samples were taken. Bleeding was minimal. The patient tolerated the procedure well. The fiberoptic bronchoscope was withdrawn from the right upper lobe and a secondary endobronchial survey was done. I then went back into the right upper lobe. No significant bleeding was noted. Fiberoptic bronchoscope was then withdrawn again through bilaterally mobile vocal cords. The patient tolerated the procedure well. No immediate procedural complications. RECOMMENDATIONS: 1. Stat post-procedure chest x-ray has been ordered and will be followed. 2. Follow up on the cultures of the transbronchial biopsy. 3. Follow up on the pathology and cytology of the transbronchial biopsies and washings as well as brushings. The patient has been recovered at this point. JOB# [id number] CAYETANO/BAM
[2017-01-01] MEDS: NOVOLOG SUB-Q SCH ×5 (08:29→21:54)
--- NOTE | 2017-01-01 09:25 | Progress Note ---
Assessment and Plan - Patient Problems (1) Severe sepsis Current Visit: Yes Status: Deleted Plan to address problem: - resolved (2) Cardiac arrest Current Visit: Yes Status: Acute Plan to address problem: - achieved ROSC and no recurrence (3) Acute renal failure Current Visit: No Status: Acute Qualifiers: Acute renal failure type: A Plan to address problem: - improved - tentatively will not need terminal clerk dialysis - per nephrology otherwise (4) Acute respiratory failure with hypoxemia Current Visit: No Status: Acute Plan to address problem: - improved - continue to wean oxygen for sats > 94% - bronchoscopy cultures no growth to date - follow cytology and pathology of biopsies, washes and brushings (5) DKA (diabetic ketoacidoses) Current Visit: Yes Status: Acute Qualifiers: Diabetes mellitus type: type 1 Diabetes mellitus complication detail: without coma Diabetes mellitus terminal clerk insulin use: D Qualified Code(s): E10.10 - Type 1 diabetes mellitus with ketoacidosis without coma Plan to address problem: - resolved - continue SSI - on 70/30 insulin 10units SB bid now (6) Anemia Current Visit: Yes Status: Acute Qualifiers: Anemia type: A Iron deficiency anemia type: I Vitamin B12 deficiency anemia type: V Folate deficiency anemia type: F Bone marrow failure anemia type: B Hemolytic anemia type: H Other causes of anemia: O Chronic kidney disease stage: C Plan to address problem: - multifactorial - continue to treat azotemia - full w/up per attending (7) Discharge planning issues Current Visit: No Status: Acute Plan to address problem: - follow cytopathology reports ...will re-evaluate in am & prn Subjective Date of service: 01/01/17 Principal diagnosis: Sepsis; Pneumonia; ASHELY on dialysis; Diabetes Interval history: Seen and examined at bedside; 24 hour events reviewed; nursing and respiratory care staff consulted; no adverse overnight events reported to me; resting in bed ; in good spirits today; no hemoptysis; denies acute chest pains or increased SOB Objective Vital Signs - 12hr 12/31/16 12/31/16 12/31/16 21:26 22:00 22:26 Temperature Pulse Rate [ 100 H Right Radial] Respiratory 20 18 18 Rate Blood Pressure [Right Arm] O2 Sat by Pulse Oximetry 01/01/17 01/01/17 01/01/17 00:36 05:00 07:30 Temperature 98.3 F 98.1 F 98.8 F Pulse Rate [ 116 H 95 H 89 Right Radial] Respiratory 18 18 18 Rate Blood Pressure 130/89 126/72 135/77 [Right Arm] O2 Sat by Pulse 97 97 100 Oximetry Constitutional: no acute distress, alert Eyes: non-icteric ENT: oropharynx moist Neck: supple, no lymphadenopathy Effort: normal Ascultation: Bilateral: diminished breath sounds, rales (scant) Cardiovascular: regular rate and rhythm Gastrointestinal: normoactive bowel sounds, soft, non-tender, non-distended Integumentary: normal Extremities: no cyanosis, no edema, pulses normal, no ischemia or petechiae Neurologic: normal mental status, non-focal exam, pupils equal and round, motor strength normal and Psychiatric: mood appropriate, affect normal CBC and BMP: 01/02/17 05:10 01/02/17 05:10 ABG, PT/INR, D-dimer: ABG POC ABG pH 7.326 (7.35-7.45) L 12/09/16 12:02 POC ABG pCO2 37.7 (35-45) 12/09/16 12:02 POC ABG pO2 115 (80-105) H 12/09/16 12:02 POC ABG HCO3 19.7 12/09/16 12:02 POC ABG Total CO2 21 12/09/16 12:02 POC ABG O2 Sat 98 12/09/16 12:02 PT/INR, D-dimer PT 15.3 Sec. (12.2-14.9) H 12/08/16 19:00 INR 1.22 (0.87-1.13) H 12/08/16 19:00 D-Dimer 5507.36 ng/mlDDU (0-234) H 12/08/16 19:00 Abnormal lab findings: Abnormal Labs 12/04/16 12/04/16 12/04/16 01:19 01:36 02:21 WBC RBC Hgb Hct MCV MCHC RDW Plt Count Lymph % (Auto) Ware % (Auto) Ware # Baso # Seg Neutrophils % Seg Neuts % (Manual) Lymphocytes % (Manual) Monocytes % (Manual) Nucleated RBC % Seg Neutrophils # Seg Neutrophils # Man Lymphocytes # (Manual) Monocytes # (Manual) Percent Retic Haptoglobin PT INR Fibrinogen D-Dimer POC ABG pH 6.759 L POC ABG pCO2 POC ABG pO2 437 H Sodium Potassium Chloride Carbon Dioxide BUN Creatinine Glucose POC Glucose > 500 H Lactic Acid Calcium Phosphorus 15.70 H Magnesium 4.30 H Iron TIBC Transferrin Total Bilirubin Direct Bilirubin AST ALT Alkaline Phosphatase Lactate Dehydrogenase CK-MB (CK-2) Troponin T C-Reactive Protein Total Protein Albumin Triglycerides Cholesterol HDL Cholesterol Vitamin B12 Urine Creatinine Urine Total Protein Heparin-induced Plt Ab Hep Bs Antibody, Quant Crossmatch 12/04/16 12/04/16 12/04/16 03:55 04:00 05:11 WBC RBC Hgb Hct MCV MCHC RDW Plt Count Lymph % (Auto) Ware % (Auto) Ware # Baso # Seg Neutrophils % Seg Neuts % (Manual) Lymphocytes % (Manual) Monocytes % (Manual) Nucleated RBC % Seg Neutrophils # Seg Neutrophils # Man Lymphocytes # (Manual) Monocytes # (Manual) Percent Retic Haptoglobin PT INR Fibrinogen D-Dimer POC ABG pH POC ABG pCO2 POC ABG pO2 Sodium Potassium Chloride 91.4 L Carbon Dioxide 8 L* BUN 55 H Creatinine 2.8 H Glucose 1610 H* POC Glucose > 500 H > 500 H Lactic Acid Calcium Phosphorus Magnesium Iron TIBC Transferrin Total Bilirubin Direct Bilirubin AST ALT Alkaline Phosphatase Lactate Dehydrogenase CK-MB (CK-2) Troponin T C-Reactive Protein Total Protein Albumin Triglycerides Cholesterol HDL Cholesterol Vitamin B12 Urine Creatinine Urine Total Protein Heparin-induced Plt Ab Hep Bs Antibody, Quant Crossmatch 12/04/16 12/04/16 12/04/16 05:40 05:54 06:58 WBC RBC Hgb Hct MCV MCHC RDW Plt Count Lymph % (Auto) Ware % (Auto) Ware # Baso # Seg Neutrophils % Seg Neuts % (Manual) Lymphocytes % (Manual) Monocytes % (Manual) Nucleated RBC % Seg Neutrophils # Seg Neutrophils # Man Lymphocytes # (Manual) Monocytes # (Manual) Percent Retic Haptoglobin PT INR Fibrinogen D-Dimer POC ABG pH 7.154 L POC ABG pCO2 27.5 L POC ABG pO2 111 H Sodium Potassium Chloride Carbon Dioxide BUN Creatinine Glucose POC Glucose > 500 H > 500 H Lactic Acid Calcium Phosphorus Magnesium Iron TIBC Transferrin Total Bilirubin Direct Bilirubin AST ALT Alkaline Phosphatase Lactate Dehydrogenase CK-MB (CK-2) Troponin T C-Reactive Protein Total Protein Albumin Triglycerides Cholesterol HDL Cholesterol Vitamin B12 Urine Creatinine Urine Total Protein Heparin-induced Plt Ab Hep Bs Antibody, Quant Crossmatch 12/04/16 12/04/16 12/04/16 07:49 07:55 07:55 WBC RBC Hgb Hct MCV MCHC RDW Plt Count Lymph % (Auto) Ware % (Auto) Ware # Baso # Seg Neutrophils % Seg Neuts % (Manual) Lymphocytes % (Manual) Monocytes % (Manual) Nucleated RBC % Seg Neutrophils # Seg Neutrophils # Man Lymphocytes # (Manual) Monocytes # (Manual) Percent Retic Haptoglobin PT INR Fibrinogen D-Dimer POC ABG pH POC ABG pCO2 POC ABG pO2 Sodium Potassium 3.3 L Chloride Carbon Dioxide 9 L* BUN 53 H Creatinine 2.9 H Glucose 1229 H* POC Glucose > 500 H Lactic Acid Calcium Phosphorus Magnesium Iron TIBC Transferrin Total Bilirubin Direct Bilirubin AST ALT Alkaline Phosphatase Lactate Dehydrogenase CK-MB (CK-2) Troponin T 0.111 H* D C-Reactive Protein Total Protein Albumin Triglycerides 570 H Cholesterol 221 H HDL Cholesterol 37 L Vitamin B12 Urine Creatinine Urine Total Protein Heparin-induced Plt Ab Hep Bs Antibody, Quant Crossmatch 12/04/16 12/04/16 12/04/16 07:55 09:55 09:55 WBC RBC 2.90 L Hgb 8.5 L Hct 30.2 L D MCV 105 H D MCHC 28 L RDW 19.2 H Plt Count Lymph % (Auto) Ware % (Auto) Ware # Baso # Seg Neutrophils % Seg Neuts % (Manual) Lymphocytes % (Manual) 11.0 L Monocytes % (Manual) Nucleated RBC % Seg Neutrophils # Seg Neutrophils # Man Lymphocytes # (Manual) 0.6 L Monocytes # (Manual) Percent Retic Haptoglobin PT INR Fibrinogen D-Dimer POC ABG pH POC ABG pCO2 POC ABG pO2 Sodium Potassium 3.1 L Chloride Carbon Dioxide 7 L* BUN 51 H Creatinine 3.2 H Glucose 969 H* POC Glucose Lactic Acid Calcium 10.4 H D Phosphorus Magnesium Iron TIBC Transferrin Total Bilirubin Direct Bilirubin AST ALT Alkaline Phosphatase Lactate Dehydrogenase CK-MB (CK-2) 4.6 H Troponin T 0.140 H* D C-Reactive Protein Total Protein Albumin Triglycerides Cholesterol HDL Cholesterol Vitamin B12 Urine Creatinine Urine Total Protein Heparin-induced Plt Ab Hep Bs Antibody, Quant Crossmatch 12/04/16 12/04/16 12/04/16 09:55 10:37 11:25 WBC RBC Hgb Hct MCV MCHC RDW Plt Count Lymph % (Auto) Ware % (Auto) Ware # Baso # Seg Neutrophils % Seg Neuts % (Manual) Lymphocytes % (Manual) Monocytes % (Manual) Nucleated RBC % Seg Neutrophils # Seg Neutrophils # Man Lymphocytes # (Manual) Monocytes # (Manual) Percent Retic Haptoglobin PT INR Fibrinogen D-Dimer POC ABG pH 7.215 L POC ABG pCO2 18.8 L POC ABG pO2 193 H Sodium Potassium Chloride Carbon Dioxide BUN Creatinine Glucose POC Glucose Lactic Acid Calcium Phosphorus Magnesium 3.70 H Iron TIBC Transferrin Total Bilirubin Direct Bilirubin AST ALT Alkaline Phosphatase Lactate Dehydrogenase CK-MB (CK-2) Troponin T C-Reactive Protein Total Protein Albumin Triglycerides Cholesterol HDL Cholesterol Vitamin B12 Urine Creatinine 29.5 H Urine Total Protein 33 H Heparin-induced Plt Ab Hep Bs Antibody, Quant Crossmatch 12/04/16 12/04/16 12/04/16 12:00 12:48 13:00 WBC RBC Hgb Hct MCV MCHC RDW Plt Count Lymph % (Auto) Ware % (Auto) Ware # Baso # Seg Neutrophils % Seg Neuts % (Manual) Lymphocytes % (Manual) Monocytes % (Manual) Nucleated RBC % Seg Neutrophils # Seg Neutrophils # Man Lymphocytes # (Manual) Monocytes # (Manual) Percent Retic Haptoglobin PT INR Fibrinogen D-Dimer POC ABG pH POC ABG pCO2 POC ABG pO2 Sodium 149 H 150 H Potassium 3.2 L 3.2 L Chloride 109.1 H Carbon Dioxide 8 L* 8 L* BUN 52 H 49 H Creatinine 3.4 H 3.1 H Glucose 723 H* 574 H* POC Glucose Lactic Acid 18.80 H* Calcium Phosphorus Magnesium Iron TIBC Transferrin Total Bilirubin Direct Bilirubin AST ALT Alkaline Phosphatase Lactate Dehydrogenase CK-MB (CK-2) Troponin T C-Reactive Protein Total Protein Albumin Triglycerides Cholesterol HDL Cholesterol Vitamin B12 Urine Creatinine Urine Total Protein Heparin-induced Plt Ab Hep Bs Antibody, Quant Crossmatch 12/04/16 12/04/16 12/04/16 13:01 14:41 16:06 WBC RBC Hgb Hct MCV MCHC RDW Plt Count Lymph % (Auto) Ware % (Auto) Ware # Baso # Seg Neutrophils % Seg Neuts % (Manual) Lymphocytes % (Manual) Monocytes % (Manual) Nucleated RBC % Seg Neutrophils # Seg Neutrophils # Man Lymphocytes # (Manual) Monocytes # (Manual) Percent Retic Haptoglobin PT INR Fibrinogen D-Dimer POC ABG pH POC ABG pCO2 POC ABG pO2 Sodium 151 H Potassium 3.2 L Chloride 108.1 H Carbon Dioxide 10 L BUN 49 H Creatinine 3.0 H Glucose 383 H POC Glucose 292 H Lactic Acid Calcium Phosphorus Magnesium Iron TIBC Transferrin Total Bilirubin Direct Bilirubin AST ALT Alkaline Phosphatase Lactate Dehydrogenase CK-MB (CK-2) Troponin T C-Reactive Protein 3.50 H Total Protein Albumin Triglycerides Cholesterol HDL Cholesterol Vitamin B12 Urine Creatinine Urine Total Protein Heparin-induced Plt Ab Hep Bs Antibody, Quant Crossmatch 12/04/16 12/04/16 12/04/16 17:15 17:25 18:07 WBC RBC Hgb Hct MCV MCHC RDW Plt Count Lymph % (Auto) Ware % (Auto) Ware # Baso # Seg Neutrophils % Seg Neuts % (Manual) Lymphocytes % (Manual) Monocytes % (Manual) Nucleated RBC % Seg Neutrophils # Seg Neutrophils # Man Lymphocytes # (Manual) Monocytes # (Manual) Percent Retic Haptoglobin PT INR Fibrinogen D-Dimer POC ABG pH 7.255 L POC ABG pCO2 16.9 L POC ABG pO2 169 H Sodium Potassium Chloride Carbon Dioxide BUN Creatinine Glucose POC Glucose 246 H Lactic Acid 18.50 H* Calcium Phosphorus Magnesium Iron TIBC Transferrin Total Bilirubin Direct Bilirubin AST ALT Alkaline Phosphatase Lactate Dehydrogenase CK-MB (CK-2) Troponin T C-Reactive Protein Total Protein Albumin Triglycerides Cholesterol HDL Cholesterol Vitamin B12 Urine Creatinine Urine Total Protein Heparin-induced Plt Ab Hep Bs Antibody, Quant Crossmatch 12/04/16 12/04/16 12/04/16 19:34 20:31 21:15 WBC RBC Hgb Hct MCV MCHC RDW Plt Count Lymph % (Auto) Ware % (Auto) Ware # Baso # Seg Neutrophils % Seg Neuts % (Manual) Lymphocytes % (Manual) Monocytes % (Manual) Nucleated RBC % Seg Neutrophils # Seg Neutrophils # Man Lymphocytes # (Manual) Monocytes # (Manual) Percent Retic Haptoglobin PT INR Fibrinogen D-Dimer POC ABG pH POC ABG pCO2 POC ABG pO2 Sodium Potassium Chloride Carbon Dioxide BUN Creatinine Glucose POC Glucose 189 H 126 H 139 H Lactic Acid Calcium Phosphorus Magnesium Iron TIBC Transferrin Total Bilirubin Direct Bilirubin AST ALT Alkaline Phosphatase Lactate Dehydrogenase CK-MB (CK-2) Troponin T C-Reactive Protein Total Protein Albumin Triglycerides Cholesterol HDL Cholesterol Vitamin B12 Urine Creatinine Urine Total Protein Heparin-induced Plt Ab Hep Bs Antibody, Quant Crossmatch 12/04/16 12/04/16 12/04/16 21:25 22:37 23:35 WBC RBC Hgb Hct MCV MCHC RDW Plt Count Lymph % (Auto) Ware % (Auto) Ware # Baso # Seg Neutrophils % Seg Neuts % (Manual) Lymphocytes % (Manual) Monocytes % (Manual) Nucleated RBC % Seg Neutrophils # Seg Neutrophils # Man Lymphocytes # (Manual) Monocytes # (Manual) Percent Retic Haptoglobin PT INR Fibrinogen D-Dimer POC ABG pH 7.294 L POC ABG pCO2 16.7 L POC ABG pO2 169 H Sodium Potassium Chloride Carbon Dioxide BUN Creatinine Glucose POC Glucose 131 H 106 H Lactic Acid Calcium Phosphorus Magnesium Iron TIBC Transferrin Total Bilirubin Direct Bilirubin AST ALT Alkaline Phosphatase Lactate Dehydrogenase CK-MB (CK-2) Troponin T C-Reactive Protein Total Protein Albumin Triglycerides Cholesterol HDL Cholesterol Vitamin B12 Urine Creatinine Urine Total Protein Heparin-induced Plt Ab Hep Bs Antibody, Quant Crossmatch 12/05/16 12/05/16 12/05/16 02:40 02:50 02:50 WBC RBC Hgb Hct MCV MCHC RDW Plt Count Lymph % (Auto) Ware % (Auto) Ware # Baso # Seg Neutrophils % Seg Neuts % (Manual) Lymphocytes % (Manual) Monocytes % (Manual) Nucleated RBC % Seg Neutrophils # Seg Neutrophils # Man Lymphocytes # (Manual) Monocytes # (Manual) Percent Retic Haptoglobin PT INR Fibrinogen D-Dimer POC ABG pH POC ABG pCO2 POC ABG pO2 Sodium 151 H Potassium Chloride 113.8 H Carbon Dioxide 12 L BUN 46 H Creatinine 3.2 H Glucose 165 H POC Glucose 109 H Lactic Acid 9.80 H* Calcium 8.3 L Phosphorus Magnesium Iron TIBC Transferrin Total Bilirubin Direct Bilirubin AST ALT Alkaline Phosphatase Lactate Dehydrogenase CK-MB (CK-2) Troponin T C-Reactive Protein Total Protein Albumin Triglycerides Cholesterol HDL Cholesterol Vitamin B12 Urine Creatinine Urine Total Protein Heparin-induced Plt Ab Hep Bs Antibody, Quant Crossmatch 12/05/16 12/05/16 12/05/16 04:01 04:30 04:30 WBC 19.1 H RBC 2.91 L Hgb 8.0 L Hct 25.4 L MCV MCHC RDW 17.8 H Plt Count Lymph % (Auto) Ware % (Auto) Ware # Baso # Seg Neutrophils % Seg Neuts % (Manual) 17.0 L Lymphocytes % (Manual) 7.0 L Monocytes % (Manual) Nucleated RBC % 3.0 H Seg Neutrophils # Seg Neutrophils # Man Lymphocytes # (Manual) Monocytes # (Manual) Percent Retic Haptoglobin PT INR Fibrinogen D-Dimer POC ABG pH POC ABG pCO2 POC ABG pO2 Sodium 152 H Potassium Chloride 113.5 H Carbon Dioxide 12 L BUN 47 H Creatinine 3.2 H Glucose 133 H POC Glucose 179 H Lactic Acid Calcium 8.3 L Phosphorus 1.00 L D Magnesium Iron TIBC Transferrin Total Bilirubin Direct Bilirubin AST ALT Alkaline Phosphatase Lactate Dehydrogenase CK-MB (CK-2) Troponin T C-Reactive Protein Total Protein Albumin Triglycerides Cholesterol HDL Cholesterol Vitamin B12 Urine Creatinine Urine Total Protein Heparin-induced Plt Ab Hep Bs Antibody, Quant Crossmatch 12/05/16 12/05/16 12/05/16 05:32 08:01 08:48 WBC RBC Hgb Hct MCV MCHC RDW Plt Count Lymph % (Auto) Ware % (Auto) Ware # Baso # Seg Neutrophils % Seg Neuts % (Manual) Lymphocytes % (Manual) Monocytes % (Manual) Nucleated RBC % Seg Neutrophils # Seg Neutrophils # Man Lymphocytes # (Manual) Monocytes # (Manual) Percent Retic Haptoglobin PT INR Fibrinogen D-Dimer POC ABG pH POC ABG pCO2 17.6 L POC ABG pO2 62 L Sodium Potassium Chloride Carbon Dioxide BUN Creatinine Glucose POC Glucose 126 H 130 H Lactic Acid Calcium Phosphorus Magnesium Iron TIBC Transferrin Total Bilirubin Direct Bilirubin AST ALT Alkaline Phosphatase Lactate Dehydrogenase CK-MB (CK-2) Troponin T C-Reactive Protein Total Protein Albumin Triglycerides Cholesterol HDL Cholesterol Vitamin B12 Urine Creatinine Urine Total Protein Heparin-induced Plt Ab Hep Bs Antibody, Quant Crossmatch 12/05/16 12/05/16 12/05/16 08:54 12:01 15:15 WBC RBC Hgb Hct MCV MCHC RDW Plt Count Lymph % (Auto) Ware % (Auto) Ware # Baso # Seg Neutrophils % Seg Neuts % (Manual) Lymphocytes % (Manual) Monocytes % (Manual) Nucleated RBC % Seg Neutrophils # Seg Neutrophils # Man Lymphocytes # (Manual) Monocytes # (Manual) Percent Retic Haptoglobin PT INR Fibrinogen D-Dimer POC ABG pH POC ABG pCO2 POC ABG pO2 Sodium Potassium Chloride Carbon Dioxide BUN Creatinine Glucose POC Glucose 157 H 117 H 166 H Lactic Acid Calcium Phosphorus Magnesium Iron TIBC Transferrin Total Bilirubin Direct Bilirubin AST ALT Alkaline Phosphatase Lactate Dehydrogenase CK-MB (CK-2) Troponin T C-Reactive Protein Total Protein Albumin Triglycerides Cholesterol HDL Cholesterol Vitamin B12 Urine Creatinine Urine Total Protein Heparin-induced Plt Ab Hep Bs Antibody, Quant Crossmatch 12/05/16 12/05/16 12/05/16 16:10 16:55 17:08 WBC RBC Hgb Hct MCV MCHC RDW Plt Count Lymph % (Auto) Ware % (Auto) Ware # Baso # Seg Neutrophils % Seg Neuts % (Manual) Lymphocytes % (Manual) Monocytes % (Manual) Nucleated RBC % Seg Neutrophils # Seg Neutrophils # Man Lymphocytes # (Manual) Monocytes # (Manual) Percent Retic Haptoglobin PT INR Fibrinogen D-Dimer POC ABG pH POC ABG pCO2 POC ABG pO2 Sodium Potassium Chloride Carbon Dioxide BUN Creatinine Glucose POC Glucose 178 H 169 H Lactic Acid Calcium Phosphorus 5.00 H D Magnesium Iron TIBC Transferrin Total Bilirubin Direct Bilirubin AST ALT Alkaline Phosphatase Lactate Dehydrogenase CK-MB (CK-2) Troponin T C-Reactive Protein Total Protein Albumin Triglycerides Cholesterol HDL Cholesterol Vitamin B12 Urine Creatinine Urine Total Protein Heparin-induced Plt Ab Hep Bs Antibody, Quant Crossmatch 12/05/16 12/05/16 12/05/16 18:08 18:51 20:04 WBC RBC Hgb Hct MCV MCHC RDW Plt Count Lymph % (Auto) Ware % (Auto) Ware # Baso # Seg Neutrophils % Seg Neuts % (Manual) Lymphocytes % (Manual) Monocytes % (Manual) Nucleated RBC % Seg Neutrophils # Seg Neutrophils # Man Lymphocytes # (Manual) Monocytes # (Manual) Percent Retic Haptoglobin PT INR Fibrinogen D-Dimer POC ABG pH POC ABG pCO2 POC ABG pO2 Sodium Potassium Chloride Carbon Dioxide BUN Creatinine Glucose POC Glucose 147 H 113 H 64 L Lactic Acid Calcium Phosphorus Magnesium Iron TIBC Transferrin Total Bilirubin Direct Bilirubin AST ALT Alkaline Phosphatase Lactate Dehydrogenase CK-MB (CK-2) Troponin T C-Reactive Protein Total Protein Albumin Triglycerides Cholesterol HDL Cholesterol Vitamin B12 Urine Creatinine Urine Total Protein Heparin-induced Plt Ab Hep Bs Antibody, Quant Crossmatch 12/05/16 12/05/16 12/05/16 21:34 22:08 23:19 WBC RBC Hgb Hct MCV MCHC RDW Plt Count Lymph % (Auto) Ware % (Auto) Ware # Baso # Seg Neutrophils % Seg Neuts % (Manual) Lymphocytes % (Manual) Monocytes % (Manual) Nucleated RBC % Seg Neutrophils # Seg Neutrophils # Man Lymphocytes # (Manual) Monocytes # (Manual) Percent Retic Haptoglobin PT INR Fibrinogen D-Dimer POC ABG pH 7.303 L POC ABG pCO2 18.3 L POC ABG pO2 73 L Sodium Potassium Chloride Carbon Dioxide BUN Creatinine Glucose POC Glucose 141 H 200 H Lactic Acid Calcium Phosphorus Magnesium Iron TIBC Transferrin Total Bilirubin Direct Bilirubin AST ALT Alkaline Phosphatase Lactate Dehydrogenase CK-MB (CK-2) Troponin T C-Reactive Protein Total Protein Albumin Triglycerides Cholesterol HDL Cholesterol Vitamin B12 Urine Creatinine Urine Total Protein Heparin-induced Plt Ab Hep Bs Antibody, Quant Crossmatch 12/06/16 12/06/16 12/06/16 00:01 01:09 02:00 WBC RBC Hgb Hct MCV MCHC RDW Plt Count Lymph % (Auto) Ware % (Auto) Ware # Baso # Seg Neutrophils % Seg Neuts % (Manual) Lymphocytes % (Manual) Monocytes % (Manual) Nucleated RBC % Seg Neutrophils # Seg Neutrophils # Man Lymphocytes # (Manual) Monocytes # (Manual) Percent Retic Haptoglobin PT INR Fibrinogen D-Dimer POC ABG pH POC ABG pCO2 POC ABG pO2 Sodium Potassium Chloride Carbon Dioxide BUN Creatinine Glucose POC Glucose 211 H 116 H 57 L Lactic Acid Calcium Phosphorus Magnesium Iron TIBC Transferrin Total Bilirubin Direct Bilirubin AST ALT Alkaline Phosphatase Lactate Dehydrogenase CK-MB (CK-2) Troponin T C-Reactive Protein Total Protein Albumin Triglycerides Cholesterol HDL Cholesterol Vitamin B12 Urine Creatinine Urine Total Protein Heparin-induced Plt Ab Hep Bs Antibody, Quant Crossmatch 12/06/16 12/06/16 12/06/16 04:14 04:50 04:50 WBC RBC 2.68 L Hgb 7.6 L Hct 23.2 L MCV MCHC RDW 18.9 H Plt Count Lymph % (Auto) Ware % (Auto) Ware # Baso # Seg Neutrophils % Seg Neuts % (Manual) 32.0 L Lymphocytes % (Manual) Monocytes % (Manual) Nucleated RBC % 3.0 H Seg Neutrophils # Seg Neutrophils # Man Lymphocytes # (Manual) 0.9 L Monocytes # (Manual) Percent Retic Haptoglobin PT INR Fibrinogen D-Dimer POC ABG pH POC ABG pCO2 POC ABG pO2 Sodium Potassium 5.8 H D Chloride 111.5 H Carbon Dioxide 11 L BUN 52 H Creatinine 3.8 H Glucose 186 H POC Glucose 133 H Lactic Acid Calcium 6.5 L D Phosphorus 5.80 H Magnesium Iron TIBC Transferrin Total Bilirubin Direct Bilirubin AST ALT Alkaline Phosphatase Lactate Dehydrogenase CK-MB (CK-2) Troponin T C-Reactive Protein Total Protein Albumin Triglycerides Cholesterol HDL Cholesterol Vitamin B12 Urine Creatinine Urine Total Protein Heparin-induced Plt Ab Hep Bs Antibody, Quant Crossmatch 12/06/16 12/06/16 12/06/16 04:50 05:04 05:07 WBC RBC Hgb Hct MCV MCHC RDW Plt Count Lymph % (Auto) Ware % (Auto) Ware # Baso # Seg Neutrophils % Seg Neuts % (Manual) Lymphocytes % (Manual) Monocytes % (Manual) Nucleated RBC % Seg Neutrophils # Seg Neutrophils # Man Lymphocytes # (Manual) Monocytes # (Manual) Percent Retic Haptoglobin PT INR Fibrinogen D-Dimer POC ABG pH POC ABG pCO2 13.0 L POC ABG pO2 111 H Sodium Potassium Chloride Carbon Dioxide BUN Creatinine Glucose POC Glucose 127 H Lactic Acid 6.50 H* Calcium Phosphorus Magnesium Iron TIBC Transferrin Total Bilirubin Direct Bilirubin AST ALT Alkaline Phosphatase Lactate Dehydrogenase CK-MB (CK-2) Troponin T C-Reactive Protein Total Protein Albumin Triglycerides Cholesterol HDL Cholesterol Vitamin B12 Urine Creatinine Urine Total Protein Heparin-induced Plt Ab Hep Bs Antibody, Quant Crossmatch 12/06/16 12/06/16 12/06/16 06:10 06:54 07:46 WBC RBC Hgb Hct MCV MCHC RDW Plt Count Lymph % (Auto) Ware % (Auto) Ware # Baso # Seg Neutrophils % Seg Neuts % (Manual) Lymphocytes % (Manual) Monocytes % (Manual) Nucleated RBC % Seg Neutrophils # Seg Neutrophils # Man Lymphocytes # (Manual) Monocytes # (Manual) Percent Retic Haptoglobin PT INR Fibrinogen D-Dimer POC ABG pH POC ABG pCO2 POC ABG pO2 Sodium Potassium Chloride Carbon Dioxide BUN Creatinine Glucose POC Glucose 219 H 237 H 158 H Lactic Acid Calcium Phosphorus Magnesium Iron TIBC Transferrin Total Bilirubin Direct Bilirubin AST ALT Alkaline Phosphatase Lactate Dehydrogenase CK-MB (CK-2) Troponin T C-Reactive Protein Total Protein Albumin Triglycerides Cholesterol HDL Cholesterol Vitamin B12 Urine Creatinine Urine Total Protein Heparin-induced Plt Ab Hep Bs Antibody, Quant Crossmatch 12/06/16 12/06/16 12/06/16 08:55 10:27 11:58 WBC RBC Hgb Hct MCV MCHC RDW Plt Count Lymph % (Auto) Ware % (Auto) Ware # Baso # Seg Neutrophils % Seg Neuts % (Manual) Lymphocytes % (Manual) Monocytes % (Manual) Nucleated RBC % Seg Neutrophils # Seg Neutrophils # Man Lymphocytes # (Manual) Monocytes # (Manual) Percent Retic Haptoglobin PT INR Fibrinogen D-Dimer POC ABG pH POC ABG pCO2 POC ABG pO2 Sodium Potassium Chloride Carbon Dioxide BUN Creatinine Glucose POC Glucose 40 L 128 H 144 H Lactic Acid Calcium Phosphorus Magnesium Iron TIBC Transferrin Total Bilirubin Direct Bilirubin AST ALT Alkaline Phosphatase Lactate Dehydrogenase CK-MB (CK-2) Troponin T C-Reactive Protein Total Protein Albumin Triglycerides Cholesterol HDL Cholesterol Vitamin B12 Urine Creatinine Urine Total Protein Heparin-induced Plt Ab Hep Bs Antibody, Quant Crossmatch 12/06/16 12/06/16 12/06/16 18:14 19:00 19:06 WBC RBC Hgb Hct MCV MCHC RDW Plt Count Lymph % (Auto) Ware % (Auto) Ware # Baso # Seg Neutrophils % Seg Neuts % (Manual) Lymphocytes % (Manual) Monocytes % (Manual) Nucleated RBC % Seg Neutrophils # Seg Neutrophils # Man Lymphocytes # (Manual) Monocytes # (Manual) Percent Retic Haptoglobin PT INR Fibrinogen D-Dimer POC ABG pH POC ABG pCO2 POC ABG pO2 Sodium 149 H Potassium 5.6 H Chloride 115.9 H Carbon Dioxide 13 L BUN 56 H Creatinine 4.3 H Glucose 124 H POC Glucose 55 L 148 H Lactic Acid Calcium 6.0 L Phosphorus Magnesium Iron TIBC Transferrin Total Bilirubin Direct Bilirubin AST ALT Alkaline Phosphatase Lactate Dehydrogenase CK-MB (CK-2) Troponin T C-Reactive Protein Total Protein Albumin Triglycerides Cholesterol HDL Cholesterol Vitamin B12 Urine Creatinine Urine Total Protein Heparin-induced Plt Ab Hep Bs Antibody, Quant Crossmatch 12/06/16 12/06/16 12/07/16 21:24 21:51 02:32 WBC RBC Hgb Hct MCV MCHC RDW Plt Count Lymph % (Auto) Ware % (Auto) Ware # Baso # Seg Neutrophils % Seg Neuts % (Manual) Lymphocytes % (Manual) Monocytes % (Manual) Nucleated RBC % Seg Neutrophils # Seg Neutrophils # Man Lymphocytes # (Manual) Monocytes # (Manual) Percent Retic Haptoglobin PT INR Fibrinogen D-Dimer POC ABG pH POC ABG pCO2 17.0 L POC ABG pO2 142 H Sodium Potassium Chloride Carbon Dioxide BUN Creatinine Glucose POC Glucose 107 H 175 H Lactic Acid Calcium Phosphorus Magnesium Iron TIBC Transferrin Total Bilirubin Direct Bilirubin AST ALT Alkaline Phosphatase Lactate Dehydrogenase CK-MB (CK-2) Troponin T C-Reactive Protein Total Protein Albumin Triglycerides Cholesterol HDL Cholesterol Vitamin B12 Urine Creatinine Urine Total Protein Heparin-induced Plt Ab Hep Bs Antibody, Quant Crossmatch 12/07/16 12/07/16 12/07/16 05:01 05:25 06:00 WBC RBC 2.52 L Hgb 7.1 L Hct 22.1 L MCV MCHC RDW 19.3 H Plt Count 90 L Lymph % (Auto) Ware % (Auto) Ware # Baso # Seg Neutrophils % Seg Neuts % (Manual) 75.0 H Lymphocytes % (Manual) 11.0 L Monocytes % (Manual) Nucleated RBC % Seg Neutrophils # Seg Neutrophils # Man Lymphocytes # (Manual) 0.7 L Monocytes # (Manual) Percent Retic Haptoglobin PT INR Fibrinogen D-Dimer POC ABG pH 7.300 L POC ABG pCO2 17.1 L POC ABG pO2 140 H Sodium Potassium Chloride Carbon Dioxide BUN Creatinine Glucose POC Glucose 279 H Lactic Acid Calcium Phosphorus Magnesium Iron TIBC Transferrin Total Bilirubin Direct Bilirubin AST ALT Alkaline Phosphatase Lactate Dehydrogenase CK-MB (CK-2) Troponin T C-Reactive Protein Total Protein Albumin Triglycerides Cholesterol HDL Cholesterol Vitamin B12 Urine Creatinine Urine Total Protein Heparin-induced Plt Ab Hep Bs Antibody, Quant Crossmatch 12/07/16 12/07/16 12/07/16 06:00 06:00 07:30 WBC RBC Hgb Hct MCV MCHC RDW Plt Count Lymph % (Auto) Ware % (Auto) Ware # Baso # Seg Neutrophils % Seg Neuts % (Manual) Lymphocytes % (Manual) Monocytes % (Manual) Nucleated RBC % Seg Neutrophils # Seg Neutrophils # Man Lymphocytes # (Manual) Monocytes # (Manual) Percent Retic Haptoglobin PT INR Fibrinogen D-Dimer POC ABG pH POC ABG pCO2 POC ABG pO2 Sodium Potassium Chloride Carbon Dioxide BUN Creatinine Glucose POC Glucose Lactic Acid 6.90 H* Calcium Phosphorus 6.80 H Magnesium Iron TIBC Transferrin Total Bilirubin Direct Bilirubin AST ALT Alkaline Phosphatase Lactate Dehydrogenase CK-MB (CK-2) Troponin T C-Reactive Protein 39.40 H Total Protein Albumin Triglycerides Cholesterol HDL Cholesterol Vitamin B12 Urine Creatinine Urine Total Protein Heparin-induced Plt Ab Hep Bs Antibody, Quant Crossmatch 12/07/16 12/07/16 12/07/16 08:40 10:53 14:31 WBC RBC Hgb Hct MCV MCHC RDW Plt Count Lymph % (Auto) Ware % (Auto) Ware # Baso # Seg Neutrophils % Seg Neuts % (Manual) Lymphocytes % (Manual) Monocytes % (Manual) Nucleated RBC % Seg Neutrophils # Seg Neutrophils # Man Lymphocytes # (Manual) Monocytes # (Manual) Percent Retic Haptoglobin PT INR Fibrinogen D-Dimer POC ABG pH POC ABG pCO2 POC ABG pO2 Sodium Potassium 7.0 H* D Chloride 112.4 H Carbon Dioxide 8 L* BUN 61 H Creatinine 5.1 H Glucose 213 H POC Glucose 353 H 52 L Lactic Acid Calcium 5.8 L* Phosphorus Magnesium Iron TIBC Transferrin Total Bilirubin Direct Bilirubin AST ALT Alkaline Phosphatase Lactate Dehydrogenase CK-MB (CK-2) Troponin T C-Reactive Protein Total Protein Albumin Triglycerides Cholesterol HDL Cholesterol Vitamin B12 Urine Creatinine Urine Total Protein Heparin-induced Plt Ab Hep Bs Antibody, Quant Crossmatch 12/07/16 12/07/16 12/07/16 14:45 15:33 16:22 WBC RBC Hgb Hct MCV MCHC RDW Plt Count Lymph % (Auto) Ware % (Auto) Ware # Baso # Seg Neutrophils % Seg Neuts % (Manual) Lymphocytes % (Manual) Monocytes % (Manual) Nucleated RBC % Seg Neutrophils # Seg Neutrophils # Man Lymphocytes # (Manual) Monocytes # (Manual) Percent Retic Haptoglobin PT 17.5 H INR 1.44 H Fibrinogen D-Dimer POC ABG pH POC ABG pCO2 POC ABG pO2 Sodium Potassium Chloride Carbon Dioxide BUN Creatinine Glucose POC Glucose < 40 L 118 H Lactic Acid Calcium Phosphorus Magnesium Iron TIBC Transferrin Total Bilirubin Direct Bilirubin AST ALT Alkaline Phosphatase Lactate Dehydrogenase CK-MB (CK-2) Troponin T C-Reactive Protein Total Protein Albumin Triglycerides Cholesterol HDL Cholesterol Vitamin B12 Urine Creatinine Urine Total Protein Heparin-induced Plt Ab Hep Bs Antibody, Quant Crossmatch 12/07/16 12/07/16 12/07/16 21:35 21:35 21:58 WBC RBC Hgb Hct MCV MCHC RDW Plt Count Lymph % (Auto) Ware % (Auto) Ware # Baso # Seg Neutrophils % Seg Neuts % (Manual) Lymphocytes % (Manual) Monocytes % (Manual) Nucleated RBC % Seg Neutrophils # Seg Neutrophils # Man Lymphocytes # (Manual) Monocytes # (Manual) Percent Retic Haptoglobin PT INR Fibrinogen D-Dimer POC ABG pH POC ABG pCO2 POC ABG pO2 Sodium 150 H Potassium 3.3 L D Chloride 111.4 H Carbon Dioxide 21 L D BUN 22 H Creatinine 2.6 H Glucose 23 L* POC Glucose < 40 L Lactic Acid Calcium Phosphorus Magnesium Iron TIBC Transferrin Total Bilirubin 1.40 H Direct Bilirubin 0.9 H AST 94 H ALT 142 H Alkaline Phosphatase 249 H Lactate Dehydrogenase CK-MB (CK-2) Troponin T C-Reactive Protein Total Protein 4.6 L D Albumin 2.1 L Triglycerides Cholesterol HDL Cholesterol Vitamin B12 Urine Creatinine Urine Total Protein Heparin-induced Plt Ab Hep Bs Antibody, Quant Crossmatch 12/07/16 12/08/16 12/08/16 23:31 04:43 04:50 WBC RBC 2.35 L Hgb 6.6 L Hct 20.1 L MCV MCHC RDW 17.8 H Plt Count 48 L Lymph % (Auto) Ware % (Auto) Ware # Baso # Seg Neutrophils % Seg Neuts % (Manual) Lymphocytes % (Manual) Monocytes % (Manual) Nucleated RBC % Seg Neutrophils # Seg Neutrophils # Man Lymphocytes # (Manual) 0.9 L Monocytes # (Manual) Percent Retic Haptoglobin PT INR Fibrinogen D-Dimer POC ABG pH 7.586 H POC ABG pCO2 17.7 L POC ABG pO2 150 H Sodium Potassium Chloride Carbon Dioxide BUN Creatinine Glucose POC Glucose 42 L Lactic Acid Calcium Phosphorus Magnesium Iron TIBC Transferrin Total Bilirubin Direct Bilirubin AST ALT Alkaline Phosphatase Lactate Dehydrogenase CK-MB (CK-2) Troponin T C-Reactive Protein Total Protein Albumin Triglycerides Cholesterol HDL Cholesterol Vitamin B12 Urine Creatinine Urine Total Protein Heparin-induced Plt Ab Hep Bs Antibody, Quant Crossmatch 12/08/16 12/08/16 12/08/16 04:50 04:59 06:54 WBC RBC Hgb Hct MCV MCHC RDW Plt Count Lymph % (Auto) Ware % (Auto) Ware # Baso # Seg Neutrophils % Seg Neuts % (Manual) Lymphocytes % (Manual) Monocytes % (Manual) Nucleated RBC % Seg Neutrophils # Seg Neutrophils # Man Lymphocytes # (Manual) Monocytes # (Manual) Percent Retic Haptoglobin PT INR Fibrinogen D-Dimer POC ABG pH POC ABG pCO2 POC ABG pO2 Sodium 149 H Potassium 3.2 L Chloride 111.8 H Carbon Dioxide 17 L BUN 26 H Creatinine 3.4 H Glucose 163 H POC Glucose 204 H 203 H Lactic Acid Calcium 7.7 L Phosphorus 2.40 L D Magnesium Iron TIBC Transferrin Total Bilirubin Direct Bilirubin AST ALT Alkaline Phosphatase Lactate Dehydrogenase CK-MB (CK-2) Troponin T C-Reactive Protein Total Protein Albumin Triglycerides Cholesterol HDL Cholesterol Vitamin B12 Urine Creatinine Urine Total Protein Heparin-induced Plt Ab Hep Bs Antibody, Quant Crossmatch 12/08/16 12/08/16 12/08/16 08:04 08:46 08:46 WBC RBC Hgb Hct MCV MCHC RDW Plt Count Lymph % (Auto) Ware % (Auto) Ware # Baso # Seg Neutrophils % Seg Neuts % (Manual) Lymphocytes % (Manual) Monocytes % (Manual) Nucleated RBC % Seg Neutrophils # Seg Neutrophils # Man Lymphocytes # (Manual) Monocytes # (Manual) Percent Retic Haptoglobin PT INR Fibrinogen D-Dimer POC ABG pH POC ABG pCO2 POC ABG pO2 Sodium 147 H Potassium 2.9 L* Chloride 110.6 H Carbon Dioxide 17 L BUN 28 H Creatinine 3.6 H Glucose 127 H POC Glucose 205 H Lactic Acid Calcium 7.3 L Phosphorus Magnesium Iron TIBC Transferrin Total Bilirubin Direct Bilirubin AST ALT Alkaline Phosphatase Lactate Dehydrogenase CK-MB (CK-2) Troponin T C-Reactive Protein Total Protein Albumin Triglycerides Cholesterol HDL Cholesterol Vitamin B12 Urine Creatinine Urine Total Protein Heparin-induced Plt Ab Hep Bs Antibody, Quant Crossmatch See Detail 12/08/16 12/08/16 12/08/16 12:36 19:00 19:00 WBC RBC Hgb Hct MCV MCHC RDW Plt Count Lymph % (Auto) Ware % (Auto) Ware # Baso # Seg Neutrophils % Seg Neuts % (Manual) Lymphocytes % (Manual) Monocytes % (Manual) Nucleated RBC % Seg Neutrophils # Seg Neutrophils # Man Lymphocytes # (Manual) Monocytes # (Manual) Percent Retic Haptoglobin PT 15.3 H INR 1.22 H Fibrinogen 563 H D-Dimer 5507.36 H POC ABG pH POC ABG pCO2 POC ABG pO2 Sodium Potassium Chloride Carbon Dioxide 21 L BUN Creatinine 1.7 H D Glucose 155 H POC Glucose 181 H Lactic Acid Calcium Phosphorus Magnesium Iron TIBC Transferrin Total Bilirubin Direct Bilirubin AST ALT Alkaline Phosphatase Lactate Dehydrogenase CK-MB (CK-2) Troponin T C-Reactive Protein Total Protein Albumin Triglycerides Cholesterol HDL Cholesterol Vitamin B12 Urine Creatinine Urine Total Protein Heparin-induced Plt Ab Hep Bs Antibody, Quant Crossmatch 12/08/16 12/08/16 12/08/16 19:00 19:00 21:30 WBC RBC 2.76 L Hgb 7.8 L Hct 23.7 L MCV MCHC RDW 17.0 H Plt Count 38 L Lymph % (Auto) Ware % (Auto) Ware # Baso # Seg Neutrophils % Seg Neuts % (Manual) Lymphocytes % (Manual) Monocytes % (Manual) Nucleated RBC % Seg Neutrophils # Seg Neutrophils # Man Lymphocytes # (Manual) Monocytes # (Manual) Percent Retic Haptoglobin 271 H PT INR Fibrinogen D-Dimer POC ABG pH POC ABG pCO2 POC ABG pO2 Sodium Potassium Chloride Carbon Dioxide BUN Creatinine Glucose POC Glucose Lactic Acid Calcium Phosphorus Magnesium Iron TIBC Transferrin Total Bilirubin Direct Bilirubin AST ALT Alkaline Phosphatase Lactate Dehydrogenase 382 H CK-MB (CK-2) Troponin T C-Reactive Protein Total Protein Albumin Triglycerides Cholesterol HDL Cholesterol Vitamin B12 Urine Creatinine Urine Total Protein Heparin-induced Plt Ab Hep Bs Antibody, Quant Crossmatch 12/08/16 12/08/16 12/09/16 23:32 23:44 05:22 WBC RBC Hgb Hct MCV MCHC RDW Plt Count Lymph % (Auto) Ware % (Auto) Ware # Baso # Seg Neutrophils % Seg Neuts % (Manual) Lymphocytes % (Manual) Monocytes % (Manual) Nucleated RBC % Seg Neutrophils # Seg Neutrophils # Man Lymphocytes # (Manual) Monocytes # (Manual) Percent Retic Haptoglobin PT INR Fibrinogen D-Dimer POC ABG pH 7.498 H POC ABG pCO2 25.2 L POC ABG pO2 137 H Sodium Potassium Chloride Carbon Dioxide BUN Creatinine Glucose POC Glucose 311 H 113 H Lactic Acid Calcium Phosphorus Magnesium Iron TIBC Transferrin Total Bilirubin Direct Bilirubin AST ALT Alkaline Phosphatase Lactate Dehydrogenase CK-MB (CK-2) Troponin T C-Reactive Protein Total Protein Albumin Triglycerides Cholesterol HDL Cholesterol Vitamin B12 Urine Creatinine Urine Total Protein Heparin-induced Plt Ab Hep Bs Antibody, Quant Crossmatch 12/09/16 12/09/16 12/09/16 06:00 11:29 11:59 WBC RBC Hgb Hct MCV MCHC RDW Plt Count Lymph % (Auto) Ware % (Auto) Ware # Baso # Seg Neutrophils % Seg Neuts % (Manual) Lymphocytes % (Manual) Monocytes % (Manual) Nucleated RBC % Seg Neutrophils # Seg Neutrophils # Man Lymphocytes # (Manual) Monocytes # (Manual) Percent Retic 0.23 L Haptoglobin PT INR Fibrinogen D-Dimer POC ABG pH POC ABG pCO2 POC ABG pO2 Sodium Potassium Chloride 110.2 H Carbon Dioxide 18 L BUN 19 H Creatinine 2.5 H Glucose 105 H POC Glucose 254 H Lactic Acid Calcium Phosphorus 2.00 L Magnesium Iron TIBC Transferrin Total Bilirubin Direct Bilirubin AST ALT Alkaline Phosphatase Lactate Dehydrogenase CK-MB (CK-2) Troponin T C-Reactive Protein Total Protein Albumin Triglycerides Cholesterol HDL Cholesterol Vitamin B12 Urine Creatinine Urine Total Protein Heparin-induced Plt Ab Hep Bs Antibody, Quant Crossmatch 12/09/16 12/09/16 12/09/16 12:02 13:27 13:27 WBC RBC Hgb Hct MCV MCHC RDW Plt Count Lymph % (Auto) Ware % (Auto) Ware # Baso # Seg Neutrophils % Seg Neuts % (Manual) Lymphocytes % (Manual) Monocytes % (Manual) Nucleated RBC % Seg Neutrophils # Seg Neutrophils # Man Lymphocytes # (Manual) Monocytes # (Manual) Percent Retic Haptoglobin PT INR Fibrinogen D-Dimer POC ABG pH 7.326 L POC ABG pCO2 POC ABG pO2 115 H Sodium Potassium Chloride Carbon Dioxide BUN Creatinine Glucose POC Glucose Lactic Acid Calcium Phosphorus Magnesium Iron 15 L TIBC 134 L Transferrin Total Bilirubin Direct Bilirubin AST ALT Alkaline Phosphatase Lactate Dehydrogenase CK-MB (CK-2) Troponin T C-Reactive Protein Total Protein Albumin Triglycerides Cholesterol HDL Cholesterol Vitamin B12 > 2000 H Urine Creatinine Urine Total Protein Heparin-induced Plt Ab Hep Bs Antibody, Quant Crossmatch 12/09/16 12/09/16 12/09/16 13:27 13:27 16:28 WBC RBC Hgb Hct MCV MCHC RDW Plt Count Lymph % (Auto) Ware % (Auto) Ware # Baso # Seg Neutrophils % Seg Neuts % (Manual) Lymphocytes % (Manual) Monocytes % (Manual) Nucleated RBC % Seg Neutrophils # Seg Neutrophils # Man Lymphocytes # (Manual) Monocytes # (Manual) Percent Retic Haptoglobin PT INR Fibrinogen D-Dimer POC ABG pH POC ABG pCO2 POC ABG pO2 Sodium Potassium Chloride Carbon Dioxide BUN Creatinine Glucose POC Glucose 199 H Lactic Acid Calcium Phosphorus Magnesium Iron TIBC Transferrin Total Bilirubin Direct Bilirubin AST ALT Alkaline Phosphatase Lactate Dehydrogenase CK-MB (CK-2) Troponin T C-Reactive Protein Total Protein Albumin Triglycerides Cholesterol HDL Cholesterol Vitamin B12 Urine Creatinine Urine Total Protein Heparin-induced Plt Ab Weak positive H Hep Bs Antibody, Quant <5 L Crossmatch 12/09/16 12/09/16 12/10/16 23:27 Unknown 05:36 WBC 11.3 H RBC 2.92 L Hgb 8.4 L Hct 25.3 L MCV MCHC RDW 16.9 H Plt Count 31 L Lymph % (Auto) Ware % (Auto) Ware # Baso # Seg Neutrophils % Seg Neuts % (Manual) Lymphocytes % (Manual) Monocytes % (Manual) Nucleated RBC % Seg Neutrophils # Seg Neutrophils # Man Lymphocytes # (Manual) Monocytes # (Manual) Percent Retic Haptoglobin PT INR Fibrinogen D-Dimer POC ABG pH POC ABG pCO2 POC ABG pO2 Sodium Potassium Chloride Carbon Dioxide BUN Creatinine Glucose POC Glucose 247 H 248 H Lactic Acid Calcium Phosphorus Magnesium Iron TIBC Transferrin Total Bilirubin Direct Bilirubin AST ALT Alkaline Phosphatase Lactate Dehydrogenase CK-MB (CK-2) Troponin T C-Reactive Protein Total Protein Albumin Triglycerides Cholesterol HDL Cholesterol Vitamin B12 Urine Creatinine Urine Total Protein Heparin-induced Plt Ab Hep Bs Antibody, Quant Crossmatch 12/10/16 12/10/16 12/10/16 09:55 09:55 11:49 WBC 21.2 H RBC 3.37 L Hgb 9.6 L Hct 29.5 L MCV MCHC RDW 16.3 H Plt Count 102 L D Lymph % (Auto) Ware % (Auto) Ware # Baso # Seg Neutrophils % Seg Neuts % (Manual) Lymphocytes % (Manual) Monocytes % (Manual) Nucleated RBC % Seg Neutrophils # Seg Neutrophils # Man Lymphocytes # (Manual) Monocytes # (Manual) Percent Retic Haptoglobin PT INR Fibrinogen D-Dimer POC ABG pH POC ABG pCO2 POC ABG pO2 Sodium Potassium Chloride 107.4 H Carbon Dioxide 21 L BUN 37 H Creatinine 4.2 H D Glucose 174 H POC Glucose 265 H Lactic Acid Calcium Phosphorus Magnesium Iron TIBC Transferrin Total Bilirubin Direct Bilirubin AST ALT Alkaline Phosphatase Lactate Dehydrogenase CK-MB (CK-2) Troponin T C-Reactive Protein Total Protein Albumin Triglycerides Cholesterol HDL Cholesterol Vitamin B12 Urine Creatinine Urine Total Protein Heparin-induced Plt Ab Hep Bs Antibody, Quant Crossmatch 12/10/16 12/10/16 12/11/16 17:56 23:44 04:30 WBC 23.5 H RBC 3.46 L Hgb 9.7 L Hct 30.1 L MCV MCHC RDW 16.4 H Plt Count 115 L Lymph % (Auto) Ware % (Auto) Ware # Baso # Seg Neutrophils % Seg Neuts % (Manual) 84.0 H Lymphocytes % (Manual) 5.0 L Monocytes % (Manual) 10.0 H Nucleated RBC % 1.0 H Seg Neutrophils # Seg Neutrophils # Man 19.7 H Lymphocytes # (Manual) Monocytes # (Manual) 2.4 H Percent Retic Haptoglobin PT INR Fibrinogen D-Dimer POC ABG pH POC ABG pCO2 POC ABG pO2 Sodium Potassium Chloride Carbon Dioxide BUN Creatinine Glucose POC Glucose 118 H 378 H Lactic Acid Calcium Phosphorus Magnesium Iron TIBC Transferrin Total Bilirubin Direct Bilirubin AST ALT Alkaline Phosphatase Lactate Dehydrogenase CK-MB (CK-2) Troponin T C-Reactive Protein Total Protein Albumin Triglycerides Cholesterol HDL Cholesterol Vitamin B12 Urine Creatinine Urine Total Protein Heparin-induced Plt Ab Hep Bs Antibody, Quant Crossmatch 12/11/16 12/11/16 12/11/16 04:30 05:33 12:48 WBC RBC Hgb Hct MCV MCHC RDW Plt Count Lymph % (Auto) Ware % (Auto) Ware # Baso # Seg Neutrophils % Seg Neuts % (Manual) Lymphocytes % (Manual) Monocytes % (Manual) Nucleated RBC % Seg Neutrophils # Seg Neutrophils # Man Lymphocytes # (Manual) Monocytes # (Manual) Percent Retic Haptoglobin PT INR Fibrinogen D-Dimer POC ABG pH POC ABG pCO2 POC ABG pO2 Sodium Potassium Chloride Carbon Dioxide 21 L BUN 50 H Creatinine 4.8 H Glucose 303 H POC Glucose 335 H 325 H Lactic Acid Calcium 8.2 L Phosphorus Magnesium Iron TIBC Transferrin Total Bilirubin Direct Bilirubin AST ALT Alkaline Phosphatase Lactate Dehydrogenase CK-MB (CK-2) Troponin T C-Reactive Protein Total Protein Albumin Triglycerides Cholesterol HDL Cholesterol Vitamin B12 Urine Creatinine Urine Total Protein Heparin-induced Plt Ab Hep Bs Antibody, Quant Crossmatch 12/11/16 12/11/16 12/12/16 17:49 21:16 00:49 WBC RBC Hgb Hct MCV MCHC RDW Plt Count Lymph % (Auto) Ware % (Auto) Ware # Baso # Seg Neutrophils % Seg Neuts % (Manual) Lymphocytes % (Manual) Monocytes % (Manual) Nucleated RBC % Seg Neutrophils # Seg Neutrophils # Man Lymphocytes # (Manual) Monocytes # (Manual) Percent Retic Haptoglobin PT INR Fibrinogen D-Dimer POC ABG pH POC ABG pCO2 POC ABG pO2 Sodium Potassium Chloride Carbon Dioxide BUN Creatinine Glucose POC Glucose 368 H 162 H 225 H Lactic Acid Calcium Phosphorus Magnesium Iron TIBC Transferrin Total Bilirubin Direct Bilirubin AST ALT Alkaline Phosphatase Lactate Dehydrogenase CK-MB (CK-2) Troponin T C-Reactive Protein Total Protein Albumin Triglycerides Cholesterol HDL Cholesterol Vitamin B12 Urine Creatinine Urine Total Protein Heparin-induced Plt Ab Hep Bs Antibody, Quant Crossmatch 12/12/16 12/12/16 12/12/16 06:09 07:52 08:18 WBC 24.1 H RBC 3.16 L Hgb 9.0 L Hct 29.4 L MCV MCHC RDW 16.6 H Plt Count 96 L Lymph % (Auto) Ware % (Auto) Ware # Baso # Seg Neutrophils % Seg Neuts % (Manual) 75.0 H Lymphocytes % (Manual) Monocytes % (Manual) Nucleated RBC % Seg Neutrophils # Seg Neutrophils # Man 18.1 H Lymphocytes # (Manual) Monocytes # (Manual) 1.4 H Percent Retic Haptoglobin PT INR Fibrinogen D-Dimer POC ABG pH POC ABG pCO2 POC ABG pO2 Sodium Potassium Chloride Carbon Dioxide BUN Creatinine Glucose POC Glucose 428 H 418 H Lactic Acid Calcium Phosphorus Magnesium Iron TIBC Transferrin Total Bilirubin Direct Bilirubin AST ALT Alkaline Phosphatase Lactate Dehydrogenase CK-MB (CK-2) Troponin T C-Reactive Protein Total Protein Albumin Triglycerides Cholesterol HDL Cholesterol Vitamin B12 Urine Creatinine Urine Total Protein Heparin-induced Plt Ab Hep Bs Antibody, Quant Crossmatch 12/12/16 12/12/16 12/12/16 08:18 11:31 17:03 WBC RBC Hgb Hct MCV MCHC RDW Plt Count Lymph % (Auto) Ware % (Auto) Ware # Baso # Seg Neutrophils % Seg Neuts % (Manual) Lymphocytes % (Manual) Monocytes % (Manual) Nucleated RBC % Seg Neutrophils # Seg Neutrophils # Man Lymphocytes # (Manual) Monocytes # (Manual) Percent Retic Haptoglobin PT INR Fibrinogen D-Dimer POC ABG pH POC ABG pCO2 POC ABG pO2 Sodium Potassium Chloride Carbon Dioxide 12 L D BUN 41 H Creatinine 4.5 H Glucose 369 H POC Glucose 212 H 422 H Lactic Acid Calcium Phosphorus Magnesium Iron TIBC Transferrin Total Bilirubin Direct Bilirubin AST ALT Alkaline Phosphatase Lactate Dehydrogenase CK-MB (CK-2) Troponin T C-Reactive Protein Total Protein Albumin Triglycerides Cholesterol HDL Cholesterol Vitamin B12 Urine Creatinine Urine Total Protein Heparin-induced Plt Ab Hep Bs Antibody, Quant Crossmatch 12/12/16 12/13/16 12/13/16 21:35 07:49 07:49 WBC 24.0 H RBC 2.90 L Hgb 8.3 L Hct 25.8 L MCV MCHC RDW 15.5 H Plt Count 120 L Lymph % (Auto) Ware % (Auto) Ware # Baso # Seg Neutrophils % Seg Neuts % (Manual) 89.0 H Lymphocytes % (Manual) 7.0 L Monocytes % (Manual) Nucleated RBC % Seg Neutrophils # Seg Neutrophils # Man 21.4 H Lymphocytes # (Manual) Monocytes # (Manual) Percent Retic Haptoglobin PT INR Fibrinogen D-Dimer POC ABG pH POC ABG pCO2 POC ABG pO2 Sodium Potassium 3.2 L Chloride Carbon Dioxide BUN 21 H Creatinine 3.0 H Glucose 21 L* POC Glucose 185 H Lactic Acid Calcium Phosphorus Magnesium Iron TIBC Transferrin Total Bilirubin Direct Bilirubin AST ALT Alkaline Phosphatase Lactate Dehydrogenase CK-MB (CK-2) Troponin T C-Reactive Protein Total Protein Albumin Triglycerides Cholesterol HDL Cholesterol Vitamin B12 Urine Creatinine Urine Total Protein Heparin-induced Plt Ab Hep Bs Antibody, Quant Crossmatch 12/13/16 12/13/16 12/13/16 09:57 11:02 16:52 WBC RBC Hgb Hct MCV MCHC RDW Plt Count Lymph % (Auto) Ware % (Auto) Ware # Baso # Seg Neutrophils % Seg Neuts % (Manual) Lymphocytes % (Manual) Monocytes % (Manual) Nucleated RBC % Seg Neutrophils # Seg Neutrophils # Man Lymphocytes # (Manual) Monocytes # (Manual) Percent Retic Haptoglobin PT INR Fibrinogen D-Dimer POC ABG pH POC ABG pCO2 POC ABG pO2 Sodium Potassium Chloride Carbon Dioxide BUN Creatinine Glucose POC Glucose < 40 L 231 H 312 H Lactic Acid Calcium Phosphorus Magnesium Iron TIBC Transferrin Total Bilirubin Direct Bilirubin AST ALT Alkaline Phosphatase Lactate Dehydrogenase CK-MB (CK-2) Troponin T C-Reactive Protein Total Protein Albumin Triglycerides Cholesterol HDL Cholesterol Vitamin B12 Urine Creatinine Urine Total Protein Heparin-induced Plt Ab Hep Bs Antibody, Quant Crossmatch 12/13/16 12/14/16 12/14/16 21:32 07:07 07:07 WBC 16.7 H RBC 2.80 L Hgb 7.9 L Hct 24.7 L MCV MCHC RDW 15.4 H Plt Count 131 L Lymph % (Auto) 13.1 L Ware % (Auto) Ware # 1.2 H Baso # Seg Neutrophils % 78.3 H Seg Neuts % (Manual) Lymphocytes % (Manual) Monocytes % (Manual) Nucleated RBC % Seg Neutrophils # 13.1 H Seg Neutrophils # Man Lymphocytes # (Manual) Monocytes # (Manual) Percent Retic Haptoglobin PT INR Fibrinogen D-Dimer POC ABG pH POC ABG pCO2 POC ABG pO2 Sodium Potassium 3.5 L Chloride Carbon Dioxide BUN 30 H Creatinine 4.6 H D Glucose 181 H POC Glucose 275 H Lactic Acid Calcium 7.7 L Phosphorus Magnesium Iron TIBC Transferrin Total Bilirubin Direct Bilirubin AST ALT Alkaline Phosphatase Lactate Dehydrogenase CK-MB (CK-2) Troponin T C-Reactive Protein Total Protein Albumin Triglycerides Cholesterol HDL Cholesterol Vitamin B12 Urine Creatinine Urine Total Protein Heparin-induced Plt Ab Hep Bs Antibody, Quant Crossmatch 12/14/16 12/14/16 12/14/16 07:46 11:35 16:24 WBC RBC Hgb Hct MCV MCHC RDW Plt Count Lymph % (Auto) Ware % (Auto) Ware # Baso # Seg Neutrophils % Seg Neuts % (Manual) Lymphocytes % (Manual) Monocytes % (Manual) Nucleated RBC % Seg Neutrophils # Seg Neutrophils # Man Lymphocytes # (Manual) Monocytes # (Manual) Percent Retic Haptoglobin PT INR Fibrinogen D-Dimer POC ABG pH POC ABG pCO2 POC ABG pO2 Sodium Potassium Chloride Carbon Dioxide BUN Creatinine Glucose POC Glucose 189 H 254 H 466 H Lactic Acid Calcium Phosphorus Magnesium Iron TIBC Transferrin Total Bilirubin Direct Bilirubin AST ALT Alkaline Phosphatase Lactate Dehydrogenase CK-MB (CK-2) Troponin T C-Reactive Protein Total Protein Albumin Triglycerides Cholesterol HDL Cholesterol Vitamin B12 Urine Creatinine Urine Total Protein Heparin-induced Plt Ab Hep Bs Antibody, Quant Crossmatch 12/14/16 12/15/16 12/15/16 20:57 06:27 07:46 WBC RBC Hgb Hct MCV MCHC RDW Plt Count Lymph % (Auto) Ware % (Auto) Ware # Baso # Seg Neutrophils % Seg Neuts % (Manual) Lymphocytes % (Manual) Monocytes % (Manual) Nucleated RBC % Seg Neutrophils # Seg Neutrophils # Man Lymphocytes # (Manual) Monocytes # (Manual) Percent Retic Haptoglobin PT INR Fibrinogen D-Dimer POC ABG pH POC ABG pCO2 POC ABG pO2 Sodium Potassium Chloride Carbon Dioxide BUN Creatinine Glucose POC Glucose 301 H 183 H 231 H Lactic Acid Calcium Phosphorus Magnesium Iron TIBC Transferrin Total Bilirubin Direct Bilirubin AST ALT Alkaline Phosphatase Lactate Dehydrogenase CK-MB (CK-2) Troponin T C-Reactive Protein Total Protein Albumin Triglycerides Cholesterol HDL Cholesterol Vitamin B12 Urine Creatinine Urine Total Protein Heparin-induced Plt Ab Hep Bs Antibody, Quant Crossmatch 12/15/16 12/15/16 12/15/16 11:38 15:34 20:51 WBC RBC Hgb Hct MCV MCHC RDW Plt Count Lymph % (Auto) Ware % (Auto) Ware # Baso # Seg Neutrophils % Seg Neuts % (Manual) Lymphocytes % (Manual) Monocytes % (Manual) Nucleated RBC % Seg Neutrophils # Seg Neutrophils # Man Lymphocytes # (Manual) Monocytes # (Manual) Percent Retic Haptoglobin PT INR Fibrinogen D-Dimer POC ABG pH POC ABG pCO2 POC ABG pO2 Sodium Potassium Chloride Carbon Dioxide BUN Creatinine Glucose POC Glucose 375 H 313 H 274 H Lactic Acid Calcium Phosphorus Magnesium Iron TIBC Transferrin Total Bilirubin Direct Bilirubin AST ALT Alkaline Phosphatase Lactate Dehydrogenase CK-MB (CK-2) Troponin T C-Reactive Protein Total Protein Albumin Triglycerides Cholesterol HDL Cholesterol Vitamin B12 Urine Creatinine Urine Total Protein Heparin-induced Plt Ab Hep Bs Antibody, Quant Crossmatch 12/16/16 12/16/16 12/16/16 08:26 09:12 17:13 WBC RBC Hgb Hct MCV MCHC RDW Plt Count Lymph % (Auto) Ware % (Auto) Ware # Baso # Seg Neutrophils % Seg Neuts % (Manual) Lymphocytes % (Manual) Monocytes % (Manual) Nucleated RBC % Seg Neutrophils # Seg Neutrophils # Man Lymphocytes # (Manual) Monocytes # (Manual) Percent Retic Haptoglobin PT INR Fibrinogen D-Dimer POC ABG pH POC ABG pCO2 POC ABG pO2 Sodium Potassium Chloride Carbon Dioxide BUN Creatinine Glucose POC Glucose 59 L 127 H > 500 H Lactic Acid Calcium Phosphorus Magnesium Iron TIBC Transferrin Total Bilirubin Direct Bilirubin AST ALT Alkaline Phosphatase Lactate Dehydrogenase CK-MB (CK-2) Troponin T C-Reactive Protein Total Protein Albumin Triglycerides Cholesterol HDL Cholesterol Vitamin B12 Urine Creatinine Urine Total Protein Heparin-induced Plt Ab Hep Bs Antibody, Quant Crossmatch 12/16/16 12/16/16 12/16/16 22:59 Unknown Unknown WBC 17.2 H RBC 2.83 L Hgb 7.9 L Hct 24.4 L MCV MCHC RDW Plt Count Lymph % (Auto) 9.2 L Ware % (Auto) Ware # 0.9 H Baso # Seg Neutrophils % 84.1 H Seg Neuts % (Manual) Lymphocytes % (Manual) Monocytes % (Manual) Nucleated RBC % Seg Neutrophils # 14.5 H Seg Neutrophils # Man Lymphocytes # (Manual) Monocytes # (Manual) Percent Retic Haptoglobin PT INR Fibrinogen D-Dimer POC ABG pH POC ABG pCO2 POC ABG pO2 Sodium Potassium Chloride Carbon Dioxide BUN 43 H Creatinine 5.4 H Glucose 131 H POC Glucose 320 H Lactic Acid Calcium 6.9 L Phosphorus Magnesium Iron TIBC Transferrin Total Bilirubin Direct Bilirubin AST ALT Alkaline Phosphatase Lactate Dehydrogenase CK-MB (CK-2) Troponin T C-Reactive Protein Total Protein Albumin Triglycerides Cholesterol HDL Cholesterol Vitamin B12 Urine Creatinine Urine Total Protein Heparin-induced Plt Ab Hep Bs Antibody, Quant Crossmatch 12/17/16 12/17/16 12/17/16 08:26 08:56 09:52 WBC RBC Hgb Hct MCV MCHC RDW Plt Count Lymph % (Auto) Ware % (Auto) Ware # Baso # Seg Neutrophils % Seg Neuts % (Manual) Lymphocytes % (Manual) Monocytes % (Manual) Nucleated RBC % Seg Neutrophils # Seg Neutrophils # Man Lymphocytes # (Manual) Monocytes # (Manual) Percent Retic Haptoglobin PT INR Fibrinogen D-Dimer POC ABG pH POC ABG pCO2 POC ABG pO2 Sodium Potassium Chloride Carbon Dioxide BUN Creatinine Glucose POC Glucose < 40 L 40 L 133 H Lactic Acid Calcium Phosphorus Magnesium Iron TIBC Transferrin Total Bilirubin Direct Bilirubin AST ALT Alkaline Phosphatase Lactate Dehydrogenase CK-MB (CK-2) Troponin T C-Reactive Protein Total Protein Albumin Triglycerides Cholesterol HDL Cholesterol Vitamin B12 Urine Creatinine Urine Total Protein Heparin-induced Plt Ab Hep Bs Antibody, Quant Crossmatch 12/17/16 12/17/16 12/17/16 12:51 16:08 21:00 WBC RBC Hgb Hct MCV MCHC RDW Plt Count Lymph % (Auto) Ware % (Auto) Ware # Baso # Seg Neutrophils % Seg Neuts % (Manual) Lymphocytes % (Manual) Monocytes % (Manual) Nucleated RBC % Seg Neutrophils # Seg Neutrophils # Man Lymphocytes # (Manual) Monocytes # (Manual) Percent Retic Haptoglobin PT INR Fibrinogen D-Dimer POC ABG pH POC ABG pCO2 POC ABG pO2 Sodium Potassium Chloride Carbon Dioxide BUN Creatinine Glucose POC Glucose 177 H 303 H 489 H Lactic Acid Calcium Phosphorus Magnesium Iron TIBC Transferrin Total Bilirubin Direct Bilirubin AST ALT Alkaline Phosphatase Lactate Dehydrogenase CK-MB (CK-2) Troponin T C-Reactive Protein Total Protein Albumin Triglycerides Cholesterol HDL Cholesterol Vitamin B12 Urine Creatinine Urine Total Protein Heparin-induced Plt Ab Hep Bs Antibody, Quant Crossmatch 12/17/16 12/17/16 12/18/16 Unknown Unknown 05:50 WBC 16.6 H 15.6 H RBC 2.63 L 2.58 L Hgb 7.5 L 7.3 L Hct 23.3 L 23.0 L MCV MCHC RDW 15.3 H 15.9 H Plt Count Lymph % (Auto) 7.7 L 8.7 L Ware % (Auto) Ware # 0.9 H Baso # Seg Neutrophils % 85.8 H 83.6 H Seg Neuts % (Manual) Lymphocytes % (Manual) Monocytes % (Manual) Nucleated RBC % Seg Neutrophils # 14.3 H 13.0 H Seg Neutrophils # Man Lymphocytes # (Manual) Monocytes # (Manual) Percent Retic Haptoglobin PT INR Fibrinogen D-Dimer POC ABG pH POC ABG pCO2 POC ABG pO2 Sodium Potassium 3.5 L Chloride Carbon Dioxide BUN 47 H Creatinine 5.2 H Glucose 173 H POC Glucose Lactic Acid Calcium 6.9 L Phosphorus Magnesium Iron TIBC Transferrin Total Bilirubin Direct Bilirubin AST ALT Alkaline Phosphatase Lactate Dehydrogenase CK-MB (CK-2) Troponin T C-Reactive Protein Total Protein Albumin Triglycerides Cholesterol HDL Cholesterol Vitamin B12 Urine Creatinine Urine Total Protein Heparin-induced Plt Ab Hep Bs Antibody, Quant Crossmatch 12/18/16 12/18/16 12/18/16 05:50 09:09 16:46 WBC RBC Hgb Hct MCV MCHC RDW Plt Count Lymph % (Auto) Ware % (Auto) Ware # Baso # Seg Neutrophils % Seg Neuts % (Manual) Lymphocytes % (Manual) Monocytes % (Manual) Nucleated RBC % Seg Neutrophils # Seg Neutrophils # Man Lymphocytes # (Manual) Monocytes # (Manual) Percent Retic Haptoglobin PT INR Fibrinogen D-Dimer POC ABG pH POC ABG pCO2 POC ABG pO2 Sodium Potassium Chloride Carbon Dioxide 17 L BUN 46 H Creatinine 5.0 H Glucose 252 H POC Glucose 349 H 324 H Lactic Acid Calcium 6.8 L Phosphorus Magnesium Iron TIBC Transferrin Total Bilirubin Direct Bilirubin AST ALT Alkaline Phosphatase Lactate Dehydrogenase CK-MB (CK-2) Troponin T C-Reactive Protein Total Protein Albumin Triglycerides Cholesterol HDL Cholesterol Vitamin B12 Urine Creatinine Urine Total Protein Heparin-induced Plt Ab Hep Bs Antibody, Quant Crossmatch 12/18/16 12/19/16 12/19/16 21:14 08:12 10:23 WBC 13.7 H RBC 2.60 L Hgb 7.5 L Hct 23.1 L MCV MCHC RDW 15.7 H Plt Count Lymph % (Auto) 9.1 L Ware % (Auto) Ware # 0.9 H Baso # Seg Neutrophils % 82.2 H Seg Neuts % (Manual) Lymphocytes % (Manual) Monocytes % (Manual) Nucleated RBC % Seg Neutrophils # 11.3 H Seg Neutrophils # Man Lymphocytes # (Manual) Monocytes # (Manual) Percent Retic Haptoglobin PT INR Fibrinogen D-Dimer POC ABG pH POC ABG pCO2 POC ABG pO2 Sodium Potassium Chloride Carbon Dioxide BUN Creatinine Glucose POC Glucose 316 H 464 H Lactic Acid Calcium Phosphorus Magnesium Iron TIBC Transferrin Total Bilirubin Direct Bilirubin AST ALT Alkaline Phosphatase Lactate Dehydrogenase CK-MB (CK-2) Troponin T C-Reactive Protein Total Protein Albumin Triglycerides Cholesterol HDL Cholesterol Vitamin B12 Urine Creatinine Urine Total Protein Heparin-induced Plt Ab Hep Bs Antibody, Quant Crossmatch 12/19/16 12/19/16 12/19/16 10:23 11:39 16:00 WBC RBC Hgb Hct MCV MCHC RDW Plt Count Lymph % (Auto) Ware % (Auto) Ware # Baso # Seg Neutrophils % Seg Neuts % (Manual) Lymphocytes % (Manual) Monocytes % (Manual) Nucleated RBC % Seg Neutrophils # Seg Neutrophils # Man Lymphocytes # (Manual) Monocytes # (Manual) Percent Retic Haptoglobin PT INR Fibrinogen D-Dimer POC ABG pH POC ABG pCO2 POC ABG pO2 Sodium Potassium 3.5 L Chloride Carbon Dioxide 14 L BUN 22 H Creatinine 3.2 H Glucose 446 H POC Glucose 344 H 467 H Lactic Acid Calcium 6.9 L Phosphorus 1.70 L D Magnesium Iron TIBC Transferrin Total Bilirubin Direct Bilirubin AST ALT Alkaline Phosphatase Lactate Dehydrogenase CK-MB (CK-2) Troponin T C-Reactive Protein Total Protein Albumin Triglycerides Cholesterol HDL Cholesterol Vitamin B12 Urine Creatinine Urine Total Protein Heparin-induced Plt Ab Hep Bs Antibody, Quant Crossmatch 12/19/16 12/19/16 12/19/16 16:35 16:35 21:16 WBC 19.3 H RBC 2.37 L Hgb 6.9 L Hct 21.8 L MCV MCHC RDW 16.7 H Plt Count Lymph % (Auto) Ware % (Auto) Ware # Baso # Seg Neutrophils % Seg Neuts % (Manual) Lymphocytes % (Manual) Monocytes % (Manual) Nucleated RBC % Seg Neutrophils # Seg Neutrophils # Man Lymphocytes # (Manual) Monocytes # (Manual) Percent Retic Haptoglobin PT INR Fibrinogen D-Dimer POC ABG pH POC ABG pCO2 POC ABG pO2 Sodium Potassium 3.4 L Chloride Carbon Dioxide 17 L BUN 23 H Creatinine 3.2 H Glucose 427 H POC Glucose 397 H Lactic Acid Calcium 6.9 L Phosphorus 2.40 L D Magnesium Iron TIBC Transferrin Total Bilirubin Direct Bilirubin AST ALT Alkaline Phosphatase Lactate Dehydrogenase CK-MB (CK-2) Troponin T C-Reactive Protein Total Protein Albumin Triglycerides Cholesterol HDL Cholesterol Vitamin B12 Urine Creatinine Urine Total Protein Heparin-induced Plt Ab Hep Bs Antibody, Quant Crossmatch 12/20/16 12/20/16 12/20/16 06:00 06:00 07:55 WBC 17.5 H RBC 2.54 L Hgb 7.3 L Hct 23.5 L MCV MCHC RDW 16.4 H Plt Count Lymph % (Auto) 9.0 L Ware % (Auto) Ware # 1.1 H Baso # Seg Neutrophils % 83.0 H Seg Neuts % (Manual) Lymphocytes % (Manual) Monocytes % (Manual) Nucleated RBC % Seg Neutrophils # 14.5 H Seg Neutrophils # Man Lymphocytes # (Manual) Monocytes # (Manual) Percent Retic Haptoglobin PT INR Fibrinogen D-Dimer POC ABG pH POC ABG pCO2 POC ABG pO2 Sodium 136 L Potassium Chloride 92.4 L Carbon Dioxide 15 L BUN Creatinine 2.6 H Glucose 475 H POC Glucose > 500 H Lactic Acid Calcium Phosphorus Magnesium Iron TIBC Transferrin Total Bilirubin Direct Bilirubin AST ALT Alkaline Phosphatase Lactate Dehydrogenase CK-MB (CK-2) Troponin T C-Reactive Protein Total Protein Albumin Triglycerides Cholesterol HDL Cholesterol Vitamin B12 Urine Creatinine Urine Total Protein Heparin-induced Plt Ab Hep Bs Antibody, Quant Crossmatch 12/20/16 12/20/16 12/20/16 11:21 16:01 22:33 WBC RBC Hgb Hct MCV MCHC RDW Plt Count Lymph % (Auto) Ware % (Auto) Ware # Baso # Seg Neutrophils % Seg Neuts % (Manual) Lymphocytes % (Manual) Monocytes % (Manual) Nucleated RBC % Seg Neutrophils # Seg Neutrophils # Man Lymphocytes # (Manual) Monocytes # (Manual) Percent Retic Haptoglobin PT INR Fibrinogen D-Dimer POC ABG pH POC ABG pCO2 POC ABG pO2 Sodium Potassium Chloride Carbon Dioxide BUN Creatinine Glucose POC Glucose > 500 H 446 H > 500 H Lactic Acid Calcium Phosphorus Magnesium Iron TIBC Transferrin Total Bilirubin Direct Bilirubin AST ALT Alkaline Phosphatase Lactate Dehydrogenase CK-MB (CK-2) Troponin T C-Reactive Protein Total Protein Albumin Triglycerides Cholesterol HDL Cholesterol Vitamin B12 Urine Creatinine Urine Total Protein Heparin-induced Plt Ab Hep Bs Antibody, Quant Crossmatch 12/20/16 12/20/16 12/21/16 22:37 23:00 00:48 WBC RBC Hgb Hct MCV MCHC RDW Plt Count Lymph % (Auto) Ware % (Auto) Ware # Baso # Seg Neutrophils % Seg Neuts % (Manual) Lymphocytes % (Manual) Monocytes % (Manual) Nucleated RBC % Seg Neutrophils # Seg Neutrophils # Man Lymphocytes # (Manual) Monocytes # (Manual) Percent Retic Haptoglobin PT INR Fibrinogen D-Dimer POC ABG pH POC ABG pCO2 POC ABG pO2 Sodium 128 L D Potassium Chloride 83.2 L Carbon Dioxide 11 L BUN 32 H Creatinine 3.5 H Glucose 822 H* POC Glucose > 500 H > 500 H Lactic Acid Calcium 8.2 L Phosphorus Magnesium Iron TIBC Transferrin Total Bilirubin Direct Bilirubin AST ALT Alkaline Phosphatase Lactate Dehydrogenase CK-MB (CK-2) Troponin T C-Reactive Protein Total Protein Albumin Triglycerides Cholesterol HDL Cholesterol Vitamin B12 Urine Creatinine Urine Total Protein Heparin-induced Plt Ab Hep Bs Antibody, Quant Crossmatch 12/21/16 12/21/16 12/21/16 03:17 05:00 05:00 WBC 15.7 H RBC 2.32 L Hgb 6.8 L Hct 20.6 L MCV MCHC RDW 16.3 H Plt Count Lymph % (Auto) 11.5 L Ware % (Auto) 7.4 H Ware # 1.2 H Baso # Seg Neutrophils % 78.7 H Seg Neuts % (Manual) Lymphocytes % (Manual) Monocytes % (Manual) Nucleated RBC % Seg Neutrophils # 12.4 H Seg Neutrophils # Man Lymphocytes # (Manual) Monocytes # (Manual) Percent Retic Haptoglobin PT INR Fibrinogen D-Dimer POC ABG pH POC ABG pCO2 POC ABG pO2 Sodium Potassium Chloride 95.3 L Carbon Dioxide 20 L D BUN 32 H Creatinine 3.7 H Glucose 243 H POC Glucose 428 H Lactic Acid Calcium 8.1 L Phosphorus Magnesium Iron TIBC 193.20 L Transferrin 138 L Total Bilirubin Direct Bilirubin AST ALT Alkaline Phosphatase Lactate Dehydrogenase CK-MB (CK-2) Troponin T C-Reactive Protein Total Protein Albumin Triglycerides Cholesterol HDL Cholesterol Vitamin B12 Urine Creatinine Urine Total Protein Heparin-induced Plt Ab Hep Bs Antibody, Quant Crossmatch 12/21/16 12/21/16 12/21/16 05:40 06:49 08:20 WBC RBC Hgb Hct MCV MCHC RDW Plt Count Lymph % (Auto) Ware % (Auto) Ware # Baso # Seg Neutrophils % Seg Neuts % (Manual) Lymphocytes % (Manual) Monocytes % (Manual) Nucleated RBC % Seg Neutrophils # Seg Neutrophils # Man Lymphocytes # (Manual) Monocytes # (Manual) Percent Retic Haptoglobin PT INR Fibrinogen D-Dimer POC ABG pH POC ABG pCO2 POC ABG pO2 Sodium Potassium Chloride Carbon Dioxide BUN Creatinine Glucose POC Glucose 271 H 236 H 222 H Lactic Acid Calcium Phosphorus Magnesium Iron TIBC Transferrin Total Bilirubin Direct Bilirubin AST ALT Alkaline Phosphatase Lactate Dehydrogenase CK-MB (CK-2) Troponin T C-Reactive Protein Total Protein Albumin Triglycerides Cholesterol HDL Cholesterol Vitamin B12 Urine Creatinine Urine Total Protein Heparin-induced Plt Ab Hep Bs Antibody, Quant Crossmatch 12/21/16 12/21/16 12/21/16 16:28 18:26 21:10 WBC RBC Hgb Hct MCV MCHC RDW Plt Count Lymph % (Auto) Ware % (Auto) Ware # Baso # Seg Neutrophils % Seg Neuts % (Manual) Lymphocytes % (Manual) Monocytes % (Manual) Nucleated RBC % Seg Neutrophils # Seg Neutrophils # Man Lymphocytes # (Manual) Monocytes # (Manual) Percent Retic Haptoglobin PT INR Fibrinogen D-Dimer POC ABG pH POC ABG pCO2 POC ABG pO2 Sodium Potassium Chloride Carbon Dioxide BUN Creatinine Glucose POC Glucose < 40 L 62 L 255 H Lactic Acid Calcium Phosphorus Magnesium Iron TIBC Transferrin Total Bilirubin Direct Bilirubin AST ALT Alkaline Phosphatase Lactate Dehydrogenase CK-MB (CK-2) Troponin T C-Reactive Protein Total Protein Albumin Triglycerides Cholesterol HDL Cholesterol Vitamin B12 Urine Creatinine Urine Total Protein Heparin-induced Plt Ab Hep Bs Antibody, Quant Crossmatch 12/22/16 12/22/16 12/22/16 03:38 06:45 06:45 WBC 17.4 H RBC 2.26 L Hgb 6.6 L Hct 20.5 L MCV MCHC RDW 15.7 H Plt Count Lymph % (Auto) 8.1 L Ware % (Auto) Ware # 0.9 H Baso # 0.2 H Seg Neutrophils % 84.3 H Seg Neuts % (Manual) Lymphocytes % (Manual) Monocytes % (Manual) Nucleated RBC % Seg Neutrophils # 14.6 H Seg Neutrophils # Man Lymphocytes # (Manual) Monocytes # (Manual) Percent Retic Haptoglobin PT INR Fibrinogen D-Dimer POC ABG pH POC ABG pCO2 POC ABG pO2 Sodium Potassium 3.3 L Chloride 95.5 L Carbon Dioxide 20 L BUN Creatinine 2.5 H Glucose 308 H POC Glucose 430 H Lactic Acid Calcium 8.2 L Phosphorus Magnesium Iron TIBC Transferrin Total Bilirubin Direct Bilirubin AST ALT Alkaline Phosphatase Lactate Dehydrogenase CK-MB (CK-2) Troponin T C-Reactive Protein Total Protein Albumin Triglycerides Cholesterol HDL Cholesterol Vitamin B12 Urine Creatinine Urine Total Protein Heparin-induced Plt Ab Hep Bs Antibody, Quant Crossmatch 12/22/16 12/22/16 12/22/16 08:31 12:50 15:46 WBC RBC Hgb Hct MCV MCHC RDW Plt Count Lymph % (Auto) Ware % (Auto) Ware # Baso # Seg Neutrophils % Seg Neuts % (Manual) Lymphocytes % (Manual) Monocytes % (Manual) Nucleated RBC % Seg Neutrophils # Seg Neutrophils # Man Lymphocytes # (Manual) Monocytes # (Manual) Percent Retic Haptoglobin PT INR Fibrinogen D-Dimer POC ABG pH POC ABG pCO2 POC ABG pO2 Sodium Potassium Chloride Carbon Dioxide BUN Creatinine Glucose POC Glucose 306 H 391 H Lactic Acid Calcium Phosphorus Magnesium Iron TIBC Transferrin Total Bilirubin Direct Bilirubin AST ALT Alkaline Phosphatase Lactate Dehydrogenase CK-MB (CK-2) Troponin T C-Reactive Protein Total Protein Albumin Triglycerides Cholesterol HDL Cholesterol Vitamin B12 Urine Creatinine Urine Total Protein Heparin-induced Plt Ab Hep Bs Antibody, Quant Crossmatch See Detail 12/22/16 12/22/16 12/23/16 17:13 21:45 06:42 WBC 17.9 H RBC 2.75 L Hgb 8.1 L Hct 24.8 L MCV MCHC RDW 17.1 H Plt Count Lymph % (Auto) Ware % (Auto) Ware # Baso # Seg Neutrophils % Seg Neuts % (Manual) Lymphocytes % (Manual) Monocytes % (Manual) Nucleated RBC % Seg Neutrophils # Seg Neutrophils # Man Lymphocytes # (Manual) Monocytes # (Manual) Percent Retic Haptoglobin PT INR Fibrinogen D-Dimer POC ABG pH POC ABG pCO2 POC ABG pO2 Sodium Potassium Chloride Carbon Dioxide BUN Creatinine Glucose POC Glucose > 500 H 449 H Lactic Acid Calcium Phosphorus Magnesium Iron TIBC Transferrin Total Bilirubin Direct Bilirubin AST ALT Alkaline Phosphatase Lactate Dehydrogenase CK-MB (CK-2) Troponin T C-Reactive Protein Total Protein Albumin Triglycerides Cholesterol HDL Cholesterol Vitamin B12 Urine Creatinine Urine Total Protein Heparin-induced Plt Ab Hep Bs Antibody, Quant Crossmatch 12/23/16 12/23/16 12/23/16 06:42 07:46 11:33 WBC RBC Hgb Hct MCV MCHC RDW Plt Count Lymph % (Auto) Ware % (Auto) Ware # Baso # Seg Neutrophils % Seg Neuts % (Manual) Lymphocytes % (Manual) Monocytes % (Manual) Nucleated RBC % Seg Neutrophils # Seg Neutrophils # Man Lymphocytes # (Manual) Monocytes # (Manual) Percent Retic Haptoglobin PT INR Fibrinogen D-Dimer POC ABG pH POC ABG pCO2 POC ABG pO2 Sodium Potassium 3.5 L Chloride 94.7 L Carbon Dioxide 19 L BUN 22 H Creatinine 2.9 H Glucose 401 H POC Glucose 449 H 298 H Lactic Acid Calcium 8.3 L Phosphorus Magnesium Iron TIBC Transferrin Total Bilirubin Direct Bilirubin AST ALT Alkaline Phosphatase Lactate Dehydrogenase CK-MB (CK-2) Troponin T C-Reactive Protein Total Protein Albumin Triglycerides Cholesterol HDL Cholesterol Vitamin B12 Urine Creatinine Urine Total Protein Heparin-induced Plt Ab Hep Bs Antibody, Quant Crossmatch 12/23/16 12/23/16 12/24/16 18:24 21:30 00:00 WBC RBC Hgb Hct MCV MCHC RDW Plt Count Lymph % (Auto) Ware % (Auto) Ware # Baso # Seg Neutrophils % Seg Neuts % (Manual) Lymphocytes % (Manual) Monocytes % (Manual) Nucleated RBC % Seg Neutrophils # Seg Neutrophils # Man Lymphocytes # (Manual) Monocytes # (Manual) Percent Retic Haptoglobin PT INR Fibrinogen D-Dimer POC ABG pH POC ABG pCO2 POC ABG pO2 Sodium Potassium Chloride Carbon Dioxide BUN Creatinine Glucose POC Glucose 177 H 455 H Lactic Acid Calcium Phosphorus Magnesium Iron TIBC Transferrin Total Bilirubin Direct Bilirubin AST ALT Alkaline Phosphatase Lactate Dehydrogenase CK-MB (CK-2) Troponin T C-Reactive Protein Total Protein Albumin Triglycerides Cholesterol HDL Cholesterol Vitamin B12 Urine Creatinine 239.9 H Urine Total Protein Heparin-induced Plt Ab Hep Bs Antibody, Quant Crossmatch 12/24/16 12/24/16 12/24/16 05:00 16:11 18:55 WBC RBC Hgb Hct MCV MCHC RDW Plt Count Lymph % (Auto) Ware % (Auto) Ware # Baso # Seg Neutrophils % Seg Neuts % (Manual) Lymphocytes % (Manual) Monocytes % (Manual) Nucleated RBC % Seg Neutrophils # Seg Neutrophils # Man Lymphocytes # (Manual) Monocytes # (Manual) Percent Retic Haptoglobin PT INR Fibrinogen D-Dimer POC ABG pH POC ABG pCO2 POC ABG pO2 Sodium Potassium 3.1 L Chloride 95.8 L Carbon Dioxide BUN Creatinine 1.8 H Glucose 106 H POC Glucose 175 H 148 H Lactic Acid Calcium Phosphorus Magnesium Iron TIBC Transferrin Total Bilirubin Direct Bilirubin AST ALT Alkaline Phosphatase Lactate Dehydrogenase CK-MB (CK-2) Troponin T C-Reactive Protein Total Protein Albumin Triglycerides Cholesterol HDL Cholesterol Vitamin B12 Urine Creatinine Urine Total Protein Heparin-induced Plt Ab Hep Bs Antibody, Quant Crossmatch 12/24/16 12/24/16 12/25/16 20:41 22:21 05:03 WBC RBC Hgb Hct MCV MCHC RDW Plt Count Lymph % (Auto) Ware % (Auto) Ware # Baso # Seg Neutrophils % Seg Neuts % (Manual) Lymphocytes % (Manual) Monocytes % (Manual) Nucleated RBC % Seg Neutrophils # Seg Neutrophils # Man Lymphocytes # (Manual) Monocytes # (Manual) Percent Retic Haptoglobin PT INR Fibrinogen D-Dimer POC ABG pH POC ABG pCO2 POC ABG pO2 Sodium Potassium 2.9 L* Chloride Carbon Dioxide BUN Creatinine 2.3 H Glucose 142 H POC Glucose 44 L 111 H Lactic Acid Calcium 8.0 L Phosphorus Magnesium Iron TIBC Transferrin Total Bilirubin Direct Bilirubin AST ALT Alkaline Phosphatase Lactate Dehydrogenase CK-MB (CK-2) Troponin T C-Reactive Protein Total Protein Albumin Triglycerides Cholesterol HDL Cholesterol Vitamin B12 Urine Creatinine Urine Total Protein Heparin-induced Plt Ab Hep Bs Antibody, Quant Crossmatch 12/25/16 12/25/16 12/25/16 07:30 12:08 16:43 WBC RBC Hgb Hct MCV MCHC RDW Plt Count Lymph % (Auto) Ware % (Auto) Ware # Baso # Seg Neutrophils % Seg Neuts % (Manual) Lymphocytes % (Manual) Monocytes % (Manual) Nucleated RBC % Seg Neutrophils # Seg Neutrophils # Man Lymphocytes # (Manual) Monocytes # (Manual) Percent Retic Haptoglobin PT INR Fibrinogen D-Dimer POC ABG pH POC ABG pCO2 POC ABG pO2 Sodium Potassium Chloride Carbon Dioxide BUN Creatinine Glucose POC Glucose 127 H 154 H 235 H Lactic Acid Calcium Phosphorus Magnesium Iron TIBC Transferrin Total Bilirubin Direct Bilirubin AST ALT Alkaline Phosphatase Lactate Dehydrogenase CK-MB (CK-2) Troponin T C-Reactive Protein Total Protein Albumin Triglycerides Cholesterol HDL Cholesterol Vitamin B12 Urine Creatinine Urine Total Protein Heparin-induced Plt Ab Hep Bs Antibody, Quant Crossmatch 12/25/16 12/26/16 12/26/16 23:30 07:49 10:21 WBC RBC Hgb Hct MCV MCHC RDW Plt Count Lymph % (Auto) Ware % (Auto) Ware # Baso # Seg Neutrophils % Seg Neuts % (Manual) Lymphocytes % (Manual) Monocytes % (Manual) Nucleated RBC % Seg Neutrophils # Seg Neutrophils # Man Lymphocytes # (Manual) Monocytes # (Manual) Percent Retic Haptoglobin PT INR Fibrinogen D-Dimer POC ABG pH POC ABG pCO2 POC ABG pO2 Sodium Potassium Chloride Carbon Dioxide BUN Creatinine Glucose POC Glucose 54 L 53 L 154 H Lactic Acid Calcium Phosphorus Magnesium Iron TIBC Transferrin Total Bilirubin Direct Bilirubin AST ALT Alkaline Phosphatase Lactate Dehydrogenase CK-MB (CK-2) Troponin T C-Reactive Protein Total Protein Albumin Triglycerides Cholesterol HDL Cholesterol Vitamin B12 Urine Creatinine Urine Total Protein Heparin-induced Plt Ab Hep Bs Antibody, Quant Crossmatch 12/26/16 12/26/16 12/26/16 12:19 16:14 Unknown WBC RBC Hgb Hct MCV MCHC RDW Plt Count Lymph % (Auto) Ware % (Auto) Ware # Baso # Seg Neutrophils % Seg Neuts % (Manual) Lymphocytes % (Manual) Monocytes % (Manual) Nucleated RBC % Seg Neutrophils # Seg Neutrophils # Man Lymphocytes # (Manual) Monocytes # (Manual) Percent Retic Haptoglobin PT INR Fibrinogen D-Dimer POC ABG pH POC ABG pCO2 POC ABG pO2 Sodium Potassium Chloride Carbon Dioxide BUN Creatinine 2.3 H Glucose POC Glucose 310 H Lactic Acid Calcium 8.3 L Phosphorus Magnesium 1.50 L Iron TIBC Transferrin Total Bilirubin Direct Bilirubin AST ALT Alkaline Phosphatase Lactate Dehydrogenase CK-MB (CK-2) Troponin T C-Reactive Protein Total Protein Albumin Triglycerides Cholesterol HDL Cholesterol Vitamin B12 Urine Creatinine Urine Total Protein Heparin-induced Plt Ab Hep Bs Antibody, Quant Crossmatch 12/26/16 12/26/16 12/27/16 Unknown Unknown 04:47 WBC RBC 2.95 L Hgb 9.0 L Hct 26.5 L MCV MCHC RDW 16.6 H Plt Count Lymph % (Auto) Ware % (Auto) Ware # Baso # Seg Neutrophils % Seg Neuts % (Manual) Lymphocytes % (Manual) Monocytes % (Manual) Nucleated RBC % Seg Neutrophils # Seg Neutrophils # Man Lymphocytes # (Manual) Monocytes # (Manual) Percent Retic Haptoglobin PT INR Fibrinogen D-Dimer POC ABG pH POC ABG pCO2 POC ABG pO2 Sodium Potassium Chloride Carbon Dioxide BUN Creatinine 2.3 H Glucose 157 H POC Glucose 406 H Lactic Acid Calcium 7.7 L Phosphorus Magnesium Iron TIBC Transferrin Total Bilirubin Direct Bilirubin AST ALT Alkaline Phosphatase Lactate Dehydrogenase CK-MB (CK-2) Troponin T C-Reactive Protein Total Protein Albumin Triglycerides Cholesterol HDL Cholesterol Vitamin B12 Urine Creatinine Urine Total Protein Heparin-induced Plt Ab Hep Bs Antibody, Quant Crossmatch 12/27/16 12/27/16 12/27/16 07:54 11:09 15:40 WBC RBC Hgb Hct MCV MCHC RDW Plt Count Lymph % (Auto) Ware % (Auto) Ware # Baso # Seg Neutrophils % Seg Neuts % (Manual) Lymphocytes % (Manual) Monocytes % (Manual) Nucleated RBC % Seg Neutrophils # Seg Neutrophils # Man Lymphocytes # (Manual) Monocytes # (Manual) Percent Retic Haptoglobin PT INR Fibrinogen D-Dimer POC ABG pH POC ABG pCO2 POC ABG pO2 Sodium Potassium Chloride Carbon Dioxide BUN Creatinine Glucose POC Glucose 500 H 301 H 208 H Lactic Acid Calcium Phosphorus Magnesium Iron TIBC Transferrin Total Bilirubin Direct Bilirubin AST ALT Alkaline Phosphatase Lactate Dehydrogenase CK-MB (CK-2) Troponin T C-Reactive Protein Total Protein Albumin Triglycerides Cholesterol HDL Cholesterol Vitamin B12 Urine Creatinine Urine Total Protein Heparin-induced Plt Ab Hep Bs Antibody, Quant Crossmatch 12/27/16 12/28/16 12/28/16 21:00 06:17 07:30 WBC RBC Hgb Hct MCV MCHC RDW Plt Count Lymph % (Auto) [place] % (Auto) Ware # Baso # Seg Neutrophils % Seg Neuts % (Manual) Lymphocytes % (Manual) Monocytes % (Manual) Nucleated RBC % Seg Neutrophils # Seg Neutrophils # Man Lymphocytes # (Manual) Monocytes # (Manual) Percent Retic Haptoglobin PT INR Fibrinogen D-Dimer POC ABG pH POC ABG pCO2 POC ABG pO2 Sodium Potassium 5.1 H D Chloride Carbon Dioxide 19 L BUN 24 H Creatinine 2.0 H Glucose 394 H POC Glucose 347 H 409 H Lactic Acid Calcium 7.7 L Phosphorus Magnesium Iron TIBC Transferrin Total Bilirubin Direct Bilirubin AST ALT Alkaline Phosphatase Lactate Dehydrogenase CK-MB (CK-2) Troponin T C-Reactive Protein Total Protein Albumin Triglycerides Cholesterol HDL Cholesterol Vitamin B12 Urine Creatinine Urine Total Protein Heparin-induced Plt Ab Hep Bs Antibody, Quant Crossmatch 12/28/16 12/28/16 12/28/16 11:33 16:38 20:59 WBC RBC Hgb Hct MCV MCHC RDW Plt Count Lymph % (Auto) [place] % (Auto) Ware # Baso # Seg Neutrophils % Seg Neuts % (Manual) Lymphocytes % (Manual) Monocytes % (Manual) Nucleated RBC % Seg Neutrophils # Seg Neutrophils # Man Lymphocytes # (Manual) Monocytes # (Manual) Percent Retic Haptoglobin PT INR Fibrinogen D-Dimer POC ABG pH POC ABG pCO2 POC ABG pO2 Sodium Potassium Chloride Carbon Dioxide BUN Creatinine Glucose POC Glucose 260 H 240 H 45 L Lactic Acid Calcium Phosphorus Magnesium Iron TIBC Transferrin Total Bilirubin Direct Bilirubin AST ALT Alkaline Phosphatase Lactate Dehydrogenase CK-MB (CK-2) Troponin T C-Reactive Protein Total Protein Albumin Triglycerides Cholesterol HDL Cholesterol Vitamin B12 Urine Creatinine Urine Total Protein Heparin-induced Plt Ab Hep Bs Antibody, Quant Crossmatch 12/28/16 12/29/16 12/29/16 22:14 04:45 05:52 WBC RBC Hgb Hct MCV MCHC RDW Plt Count Lymph % (Auto) [place] % (Auto) Ware # Baso # Seg Neutrophils % Seg Neuts % (Manual) Lymphocytes % (Manual) Monocytes % (Manual) Nucleated RBC % Seg Neutrophils # Seg Neutrophils # Man Lymphocytes # (Manual) Monocytes # (Manual) Percent Retic Haptoglobin PT INR Fibrinogen D-Dimer POC ABG pH POC ABG pCO2 POC ABG pO2 Sodium Potassium Chloride Carbon Dioxide BUN 23 H Creatinine 2.0 H Glucose 166 H POC Glucose 56 L 43 L Lactic Acid Calcium 7.7 L Phosphorus Magnesium Iron TIBC Transferrin Total Bilirubin Direct Bilirubin AST ALT Alkaline Phosphatase Lactate Dehydrogenase CK-MB (CK-2) Troponin T C-Reactive Protein Total Protein Albumin Triglycerides Cholesterol HDL Cholesterol Vitamin B12 Urine Creatinine Urine Total Protein Heparin-induced Plt Ab Hep Bs Antibody, Quant Crossmatch 12/29/16 12/29/16 12/30/16 06:52 11:52 05:00 WBC RBC Hgb Hct MCV MCHC RDW Plt Count Lymph % (Auto) [place] % (Auto) [place] # Baso # Seg Neutrophils % Seg Neuts % (Manual) Lymphocytes % (Manual) Monocytes % (Manual) Nucleated RBC % Seg Neutrophils # Seg Neutrophils # Man Lymphocytes # (Manual) Monocytes # (Manual) Percent Retic Haptoglobin PT INR Fibrinogen D-Dimer POC ABG pH POC ABG pCO2 POC ABG pO2 Sodium Potassium Chloride Carbon Dioxide BUN 20 H Creatinine 2.0 H Glucose 150 H POC Glucose 115 H 143 H Lactic Acid Calcium 7.6 L Phosphorus Magnesium Iron TIBC Transferrin Total Bilirubin Direct Bilirubin AST ALT Alkaline Phosphatase Lactate Dehydrogenase CK-MB (CK-2) Troponin T C-Reactive Protein Total Protein Albumin Triglycerides Cholesterol HDL Cholesterol Vitamin B12 Urine Creatinine Urine Total Protein Heparin-induced Plt Ab Hep Bs Antibody, Quant Crossmatch 12/30/16 12/30/16 12/30/16 07:11 11:36 15:17 WBC RBC Hgb Hct MCV MCHC RDW Plt Count Lymph % (Auto) [place] % (Auto) [place] # Baso # Seg Neutrophils % Seg Neuts % (Manual) Lymphocytes % (Manual) Monocytes % (Manual) Nucleated RBC % Seg Neutrophils # Seg Neutrophils # Man Lymphocytes # (Manual) Monocytes # (Manual) Percent Retic Haptoglobin PT INR Fibrinogen D-Dimer POC ABG pH POC ABG pCO2 POC ABG pO2 Sodium Potassium Chloride Carbon Dioxide BUN Creatinine Glucose POC Glucose 162 H 137 H 123 H Lactic Acid Calcium Phosphorus Magnesium Iron TIBC Transferrin Total Bilirubin Direct Bilirubin AST ALT Alkaline Phosphatase Lactate Dehydrogenase CK-MB (CK-2) Troponin T C-Reactive Protein Total Protein Albumin Triglycerides Cholesterol HDL Cholesterol Vitamin B12 Urine Creatinine Urine Total Protein Heparin-induced Plt Ab Hep Bs Antibody, Quant Crossmatch 12/30/16 12/30/16 12/30/16 21:11 22:13 23:35 WBC RBC Hgb Hct MCV MCHC RDW Plt Count Lymph % (Auto) [place] % (Auto) [place] # Baso # Seg Neutrophils % Seg Neuts % (Manual) Lymphocytes % (Manual) Monocytes % (Manual) Nucleated RBC % Seg Neutrophils # Seg Neutrophils # Man Lymphocytes # (Manual) Monocytes # (Manual) Percent Retic Haptoglobin PT INR Fibrinogen D-Dimer POC ABG pH POC ABG pCO2 POC ABG pO2 Sodium Potassium Chloride Carbon Dioxide BUN Creatinine Glucose POC Glucose < 40 L 40 L 126 H Lactic Acid Calcium Phosphorus Magnesium Iron TIBC Transferrin Total Bilirubin Direct Bilirubin AST ALT Alkaline Phosphatase Lactate Dehydrogenase CK-MB (CK-2) Troponin T C-Reactive Protein Total Protein Albumin Triglycerides Cholesterol HDL Cholesterol Vitamin B12 Urine Creatinine Urine Total Protein Heparin-induced Plt Ab Hep Bs Antibody, Quant Crossmatch 12/31/16 12/31/16 12/31/16 06:38 07:51 08:28 WBC RBC Hgb Hct MCV MCHC RDW Plt Count Lymph % (Auto) [place] % (Auto) [place] # Baso # Seg Neutrophils % Seg Neuts % (Manual) Lymphocytes % (Manual) Monocytes % (Manual) Nucleated RBC % Seg Neutrophils # Seg Neutrophils # Man Lymphocytes # (Manual) Monocytes # (Manual) Percent Retic Haptoglobin PT INR Fibrinogen D-Dimer POC ABG pH POC ABG pCO2 POC ABG pO2 Sodium Potassium Chloride Carbon Dioxide BUN 20 H Creatinine 1.6 H Glucose 28 L* POC Glucose 44 L 155 H Lactic Acid Calcium 7.4 L Phosphorus Magnesium Iron TIBC Transferrin Total Bilirubin Direct Bilirubin AST ALT Alkaline Phosphatase Lactate Dehydrogenase CK-MB (CK-2) Troponin T C-Reactive Protein Total Protein Albumin Triglycerides Cholesterol HDL Cholesterol Vitamin B12 Urine Creatinine Urine Total Protein Heparin-induced Plt Ab Hep Bs Antibody, Quant Crossmatch 12/31/16 12/31/16 12/31/16 11:27 12:59 16:10 WBC RBC Hgb Hct MCV MCHC RDW Plt Count Lymph % (Auto) [place] % (Auto) Ware # Baso # Seg Neutrophils % Seg Neuts % (Manual) Lymphocytes % (Manual) Monocytes % (Manual) Nucleated RBC % Seg Neutrophils # Seg Neutrophils # Man Lymphocytes # (Manual) Monocytes # (Manual) Percent Retic Haptoglobin PT INR Fibrinogen D-Dimer POC ABG pH POC ABG pCO2 POC ABG pO2 Sodium Potassium Chloride Carbon Dioxide BUN Creatinine Glucose POC Glucose 113 H 113 H 216 H Lactic Acid Calcium Phosphorus Magnesium Iron TIBC Transferrin Total Bilirubin Direct Bilirubin AST ALT Alkaline Phosphatase Lactate Dehydrogenase CK-MB (CK-2) Troponin T C-Reactive Protein Total Protein Albumin Triglycerides Cholesterol HDL Cholesterol Vitamin B12 Urine Creatinine Urine Total Protein Heparin-induced Plt Ab Hep Bs Antibody, Quant Crossmatch 12/31/16 01/01/17 01/01/17 21:22 01:11 01:46 WBC RBC Hgb Hct MCV MCHC RDW Plt Count Lymph % (Auto) [place] % (Auto) Ware # Baso # Seg Neutrophils % Seg Neuts % (Manual) Lymphocytes % (Manual) Monocytes % (Manual) Nucleated RBC % Seg Neutrophils # Seg Neutrophils # Man Lymphocytes # (Manual) Monocytes # (Manual) Percent Retic Haptoglobin PT INR Fibrinogen D-Dimer POC ABG pH POC ABG pCO2 POC ABG pO2 Sodium Potassium Chloride Carbon Dioxide BUN Creatinine Glucose POC Glucose 410 H 129 H Lactic Acid Calcium Phosphorus Magnesium 1.40 L Iron TIBC Transferrin Total Bilirubin Direct Bilirubin AST ALT Alkaline Phosphatase Lactate Dehydrogenase CK-MB (CK-2) Troponin T C-Reactive Protein Total Protein Albumin Triglycerides Cholesterol HDL Cholesterol Vitamin B12 Urine Creatinine Urine Total Protein Heparin-induced Plt Ab Hep Bs Antibody, Quant Crossmatch 01/01/17 01/01/17 05:00 08:07 WBC RBC Hgb Hct MCV MCHC RDW Plt Count Lymph % (Auto) Ware % (Auto) Ware # Baso # Seg Neutrophils % Seg Neuts % (Manual) Lymphocytes % (Manual) Monocytes % (Manual) Nucleated RBC % Seg Neutrophils # Seg Neutrophils # Man Lymphocytes # (Manual) Monocytes # (Manual) Percent Retic Haptoglobin PT INR Fibrinogen D-Dimer POC ABG pH POC ABG pCO2 POC ABG pO2 Sodium Potassium 5.2 H D Chloride Carbon Dioxide BUN 22 H Creatinine 1.6 H Glucose 167 H POC Glucose 431 H Lactic Acid Calcium 7.8 L Phosphorus Magnesium Iron TIBC Transferrin Total Bilirubin Direct Bilirubin AST ALT Alkaline Phosphatase Lactate Dehydrogenase CK-MB (CK-2) Troponin T C-Reactive Protein Total Protein Albumin Triglycerides Cholesterol HDL Cholesterol Vitamin B12 Urine Creatinine Urine Total Protein Heparin-induced Plt Ab Hep Bs Antibody, Quant Crossmatch
[2017-01-01] MEDS: PEPCID PO SCH (10:07)
[2017-01-01] MEDS: LOPRESSOR PO SCH ×2 (10:07→21:53)
[2017-01-01] MEDS: LOVENOX SUB-Q SCH (10:07)
[2017-01-01] MEDS ORDERED: KIONEX PO ONE ×2 (10:18→15:00)
--- NOTE | 2017-01-01 11:02 | XRay Report ---
CHEST 1 VIEW INDICATION: Shortness of breath. COMPARISON: Yesterday. FINDINGS: Portable, frontal chest radiograph, 10:25 AM, 01/01/2017 reveals stable cardiomediastinal silhouette, left upper extremity PICC, appearance of the lungs and osseous structures, providing for the difference in technique. CONCLUSION: No significant interval change. Thank you for the opportunity to participate in this patient's care.
[2017-01-01] MEDS ORDERED: LEVAQUIN PO ONE (14:10)
--- NOTE | 2017-01-01 14:23 | Progress Note ---
Assessment and Plan Assessment and plan: The patient is a 46-year-old woman with history of insulin-dependent diabetes mellitus, hypertension, recent SAH and dyslipidemia who presented with DKA, AMS and STEMI with V. fib arrest requiring IV amiodarone suppression. she was intubated and subsequently extubated. she was treated with IV insulin drip for documented DKA without ketones documentation but she was acidotic on admission and pressors but subsequently weaned off and transferred to the medical floor. Uncontrolled DM -Labile -CONTINUE CARB CONSISTENT DIET -70/30 10 units bid. Continue slidding scale Monitor for recurrent hypoglycemia Acute hypoxic respiratory failure. Resolved. Now extubated, stable right upper lobe opacity. AWAITING PATHOLOGY FROM [facility] Sp[facility] secondary to Possible aspiration penumonitis. Inital BCX with coagulase negative staff, 1/2 bottles ?contaminate Repeat cultures, no growth. Discontinue abx Priliminary cultures still growing Gram positive Cocci, GNR, will restart Levaquin. Pt initially completed 7 days. No new fever. Severe Metabolic acidosis Resolved. Neprhology following Cardiac arrest with PEA arrest-->V. fib/?torsades was shocked twice - Likely from hyperkalemia, currently patient is stable. Was treated with amiodarone -Echo EF 40-45% - No recurrence Acute kidney injury secondary to ATN - Nephrology is following. HD Held ASHELY improving. Cr 2.3 for past 3 days NOW 1.6. NO FURTHER NEED FOR DIALYSIS Hyperkalemia- Give Kayxalate. Malnutrition- Moderate: Nutrition consult DKA: - resolved - On sliding insulin Acute metabolic encephalopathy, resolved Nstemi Type 2- Likely from Shock. Moderate protein calorie malnutrition Thrombocytopenia - Resolved Acute on chronic anemia of chronic disease, s/p total 3 units PRBC this admission - Hemoglobin is stable. will check intermittently Depression - Psych consulted and recommend outpatient mental health follow up. Disposition -PENDING PATHOLOGY -DVT prophylaxis: SCDs only due to recent SAH History Interval history: Patient seen and examined, denies any new complaints, No new complaints. Hospitalist Physical - Physical exam Narrative exam: VITAL SIGNS: Reviewed. GENERAL: The patient appeared normally developed, cachetic. Vital signs as documented. HEAD: No signs of head trauma. temporal wasting noted EYES: Pupils are equal. Extraocular motions intact. EARS: Hearing grossly intact. MOUTH: Oropharynx is normal. NECK: No adenopathy, no JVD. CHEST: Chest with diminshed breath sounds bilaterally. No wheezes, rales, or rhonchi CARDIAC: Regular rate and rhythm. S1 and S2, without murmurs, gallops, or rubs. VASCULAR: Trace Edema. Peripheral pulses normal and equal in all extremities. ABDOMEN: Soft, without detectable tenderness. No sign of distention. No rebound or guarding, and no masses palpated. Bowel Sounds normal. MUSCULOSKELETAL: Good range of motion of all major joints. Extremities without clubbing, cyanosis. Trace edema. NEUROLOGIC EXAM: Alert and oriented x 3. No focal sensory or strength deficits. Speech normal. Follows commands. PSYCHIATRIC: Mood normal. SKIN: No rash or lesions. - Constitutional Vitals: Temp Pulse Resp BP Pulse Ox 97.8 F 85 18 132/58 100 01/01/17 13:42 01/01/17 13:42 01/01/17 13:42 01/01/17 13:42 01/01/17 13:42 General appearance: Present: no acute distress (resting comfortably) Results - Labs CBC & Chem 7: 12/26/16 Unknown 01/01/17 05:00 Labs: Laboratory Last Values WBC 7.9 K/mm3 (4.5-11.0) 12/26/16 Unknown RBC 2.95 M/mm3 (3.65-5.03) L 12/26/16 Unknown Hgb 9.0 gm/dl (10.1-14.3) L 12/26/16 Unknown Hct 26.5 % (30.3-42.9) L 12/26/16 Unknown MCV 90 fl (79-97) 12/26/16 Unknown MCH 30 pg (28-32) 12/26/16 Unknown MCHC 34 % (30-34) 12/26/16 Unknown RDW 16.6 % (13.2-15.2) H 12/26/16 Unknown Plt Count 230 K/mm3 (140-440) 12/26/16 Unknown Lymph % (Auto) 8.1 % (13.4-35.0) L 12/22/16 06:45 [place] % (Auto) 5.3 % (0.0-7.3) 12/22/16 06:45 Eos % (Auto) 1.4 % (0.0-4.3) 12/22/16 06:45 Baso % (Auto) 0.9 % (0.0-1.8) 12/22/16 06:45 Lymph # 1.4 K/mm3 (1.2-5.4) 12/22/16 06:45 [place] # 0.9 K/mm3 (0.0-0.8) H 12/22/16 06:45 Eos # 0.2 K/mm3 (0.0-0.4) 12/22/16 06:45 Baso # 0.2 K/mm3 (0.0-0.1) H 12/22/16 06:45 Add Manual Diff Complete 12/13/16 07:49 Total Counted 100 12/13/16 07:49 Seg Neutrophils % 84.3 % (40.0-70.0) H 12/22/16 06:45 Seg Neuts % (Manual) 89.0 % (40.0-70.0) H 12/13/16 07:49 Band Neutrophils % 1.0 % 12/13/16 07:49 Lymphocytes % (Manual) 7.0 % (13.4-35.0) L 12/13/16 07:49 Reactive Lymphs % (Man) 0 % 12/13/16 07:49 Monocytes % (Manual) 3.0 % (0.0-7.3) 12/13/16 07:49 Eosinophils % (Manual) 0 % (0.0-4.3) 12/13/16 07:49 Basophils % (Manual) 0 % (0.0-1.8) 12/13/16 07:49 Metamyelocytes % 0 % 12/13/16 07:49 Myelocytes % 0 % 12/13/16 07:49 Promyelocytes % 0 % 12/13/16 07:49 Blast Cells % 0 % 12/13/16 07:49 Nucleated RBC % Not Reportable 12/13/16 07:49 Seg Neutrophils # 14.6 K/mm3 (1.8-7.7) H 12/22/16 06:45 Seg Neutrophils # Man 21.4 K/mm3 (1.8-7.7) H 12/13/16 07:49 Band Neutrophils # 0.2 K/mm3 12/13/16 07:49 Lymphocytes # (Manual) 1.7 K/mm3 (1.2-5.4) 12/13/16 07:49 Abs React Lymphs (Man) 0.0 K/mm3 12/13/16 07:49 Monocytes # (Manual) 0.7 K/mm3 (0.0-0.8) 12/13/16 07:49 Eosinophils # (Manual) 0.0 K/mm3 (0.0-0.4) 12/13/16 07:49 Basophils # (Manual) 0.0 K/mm3 (0.0-0.1) 12/13/16 07:49 Metamyelocytes # 0.0 K/mm3 12/13/16 07:49 Myelocytes # 0.0 K/mm3 12/13/16 07:49 Promyelocytes # 0.0 K/mm3 12/13/16 07:49 Blast Cells # 0.0 K/mm3 12/13/16 07:49 WBC Morphology Not Reportable 12/13/16 07:49 Hypersegmented Neuts Not Reportable 12/13/16 07:49 Hyposegmented Neuts Not Reportable 12/13/16 07:49 Hypogranular Neuts Not Reportable 12/13/16 07:49 Smudge Cells Not Reportable 12/13/16 07:49 Toxic Granulation Not Reportable 12/13/16 07:49 Toxic Vacuolation Not Reportable 12/13/16 07:49 Dohle Bodies Not Reportable 12/13/16 07:49 Pelger-Huet Anomaly Not Reportable 12/13/16 07:49 Mary Rods Not Reportable 12/13/16 07:49 Platelet Estimate Cons 12/13/16 07:49 Clumped Platelets Not Reportable 12/13/16 07:49 Plt Clumps, EDTA Not Reportable 12/13/16 07:49 Large Platelets Rare 12/13/16 07:49 Giant Platelets Not Reportable 12/13/16 07:49 Platelet Satelliting Not Reportable 12/13/16 07:49 Plt Morphology Comment Not Reportable 12/13/16 07:49 RBC Morphology Not Reportable 12/13/16 07:49 Dimorphic RBCs Not Reportable 12/13/16 07:49 Polychromasia Not Reportable 12/13/16 07:49 Hypochromasia 1+ 12/13/16 07:49 Poikilocytosis Not Reportable 12/13/16 07:49 Anisocytosis 1+ 12/13/16 07:49 Microcytosis Not Reportable 12/13/16 07:49 Macrocytosis Not Reportable 12/13/16 07:49 Spherocytes Not Reportable 12/13/16 07:49 Pappenheimer Bodies Not Reportable 12/13/16 07:49 Sickle Cells Not Reportable 12/13/16 07:49 Target Cells Few 12/13/16 07:49 Tear Drop Cells Not Reportable 12/13/16 07:49 Ovalocytes Not Reportable 12/13/16 07:49 Helmet Cells Not Reportable 12/13/16 07:49 Landers-Hernandez Bodies Not Reportable 12/13/16 07:49 [place] Rings Not Reportable 12/13/16 07:49 Jerri Cells Not Reportable 12/13/16 07:49 Bite Cells Not Reportable 12/13/16 07:49 Crenated Cell Not Reportable 12/13/16 07:49 Elliptocytes Not Reportable 12/13/16 07:49 Acanthocytes (Spur) Not Reportable 12/13/16 07:49 Rouleaux Not Reportable 12/13/16 07:49 Hemoglobin C Crystals Not Reportable 12/13/16 07:49 Schistocytes Not Reportable 12/13/16 07:49 Malaria parasites Not Reportable 12/13/16 07:49 Percent Retic 0.23 % (0.78-2.58) L 12/09/16 11:29 Michael Bodies Not Reportable 12/13/16 07:49 Haptoglobin 271 mg/dL (43-212) H 12/08/16 21:30 Hem Pathologist Commnt No 12/13/16 07:49 PT 15.3 Sec. (12.2-14.9) H 12/08/16 19:00 INR 1.22 (0.87-1.13) H 12/08/16 19:00 APTT 36.2 Sec. (24.2-36.6) 12/08/16 19:00 Fibrinogen 563 mg/dl (211-480) H 12/08/16 19:00 D-Dimer 5507.36 ng/mlDDU (0-234) H 12/08/16 19:00 Heparin Anti-Xa, Unfract Negative (Negative) 12/09/16 13:27 POC ABG pH 7.326 (7.35-7.45) L 12/09/16 12:02 POC ABG pCO2 37.7 (35-45) 12/09/16 12:02 POC ABG pO2 115 (80-105) H 12/09/16 12:02 POC ABG HCO3 19.7 12/09/16 12:02 POC ABG Total CO2 21 12/09/16 12:02 POC ABG O2 Sat 98 12/09/16 12:02 POC ABG Base Excess -6 12/09/16 12:02 FiO2 30 % 12/09/16 12:02 Sodium 139 mmol/L (137-145) 01/01/17 05:00 Potassium 5.2 mmol/L (3.6-5.0) H D 01/01/17 05:00 Chloride 102.5 mmol/L (98-107) 01/01/17 05:00 Carbon Dioxide 22 mmol/L (22-30) 01/01/17 05:00 Anion Gap 20 mmol/L 01/01/17 05:00 BUN 22 mg/dL (7-17) H 01/01/17 05:00 Creatinine 1.6 mg/dL (0.7-1.2) H 01/01/17 05:00 Estimated GFR 42 ml/min 01/01/17 05:00 BUN/Creatinine Ratio 13.75 % 01/01/17 05:00 Glucose 167 mg/dL (65-100) H 01/01/17 05:00 POC Glucose 431 (70-105) H 01/01/17 08:07 Lactic Acid 6.90 mmol/L (0.7-2.0) H* 12/07/16 07:30 Calcium 7.8 mg/dL (8.4-10.2) L 01/01/17 05:00 Phosphorus 2.60 mg/dL (2.5-4.5) 12/26/16 Unknown Magnesium 1.40 mg/dL (1.7-2.3) L 01/01/17 01:46 Iron 66 ug/dL (37-170) 12/21/16 05:00 TIBC 193.20 mcg/dL (250-450) L 12/21/16 05:00 Transferrin 138 mg/dl (192-382) L 12/21/16 05:00 Ferritin 321.4 ng/mL (13.0-400.0) 12/21/16 05:00 Total Bilirubin 1.40 mg/dL (0.1-1.2) H 12/07/16 21:35 Direct Bilirubin 0.9 mg/dL (0-0.2) H 12/07/16 21:35 Indirect Bilirubin 0.5 mg/dL 12/07/16 21:35 AST 94 units/L (5-40) H 12/07/16 21:35 ALT 142 units/L (7-56) H 12/07/16 21:35 Alkaline Phosphatase 249 units/L (35-129) H 12/07/16 21:35 Lactate Dehydrogenase 382 units/L (91-180) H 12/08/16 19:00 Total Creatine Kinase 123 units/L (30-135) 12/04/16 09:55 CK-MB (CK-2) 4.6 ng/mL (0.0-4.0) H 12/04/16 09:55 CK-MB (CK-2) Rel Index 3.7 (0-4) 12/04/16 09:55 Troponin T 0.140 ng/mL (0.00-0.029) H* D 12/04/16 09:55 C-Reactive Protein 39.40 mg/dL (0.00-1.30) H 12/07/16 06:00 Total Protein 4.6 g/dL (6.3-8.2) L D 12/07/16 21:35 Albumin 2.1 g/dL (3.9-5) L 12/07/16 21:35 Albumin/Globulin Ratio 0.8 % 12/07/16 21:35 Triglycerides 570 mg/dL (2-149) H 12/04/16 07:55 Cholesterol 221 mg/dL (50-199) H 12/04/16 07:55 LDL Cholesterol Direct TNR 12/04/16 07:55 HDL Cholesterol 37 mg/dL (40-59) L 12/04/16 07:55 Cholesterol/HDL Ratio 5.97 % 12/04/16 07:55 Serotonin Release Assay See scanned report 12/09/16 13:27 Vitamin B12 > 2000 pg/mL (211-911) H 12/09/16 13:27 Folate 8.10 ng/mL (7.3-26.0) 12/09/16 13:27 TSH 1.600 mlU/mL (0.270-4.200) 12/03/16 23:20 Urine Color Yellow (Yellow) 12/04/16 11:25 Urine Turbidity Slightly-cloudy (Clear) 12/04/16 11:25 Urine pH 5.0 (5.0-7.0) 12/04/16 11:25 Ur Specific [place] 1.018 (1.003-1.030) 12/04/16 11:25 Urine Protein 30 mg/dl mg/dL (Negative) 12/04/16 11:25 Urine Glucose (UA) >=500 mg/dL (Negative) 12/04/16 11:25 Urine Ketones Tr mg/dL (Negative) 12/04/16 11:25 Urine Blood Sm (Negative) 12/04/16 11:25 Urine Nitrite Neg (Negative) 12/04/16 11:25 Urine Bilirubin Neg (Negative) 12/04/16 11:25 Urine Urobilinogen < 2.0 mg/dL (<2.0) 12/04/16 11:25 Ur Leukocyte Esterase Neg (Negative) 12/04/16 11:25 Urine WBC (Auto) 4.0 /HPF (0.0-6.0) 12/04/16 11:25 Urine RBC (Auto) 2.0 /HPF (0.0-6.0) 12/04/16 11:25 U Epithel Cells (Auto) < 1.0 /HPF (0-13.0) 12/04/16 11:25 Urine Mucus Few /HPF 12/04/16 11:25 Urine Osmolality 419 Mosm/kg 12/04/16 11:25 Urine Total Volume 200 12/24/16 00:00 Urine Creatinine 239.9 mg/dL (0.1-20.0) H 12/24/16 00:00 Height (in) 64.0 inches 12/24/16 00:00 Weight (lb) 114.0 lbs 12/24/16 00:00 Creatinine Clearance 12 12/24/16 00:00 Protein/Creatinin Ratio 1.12 12/04/16 11:25 Urine Sodium 26 mEq/L 12/04/16 11:25 Urine Total Protein 33 mg/dL (5-11.8) H 12/04/16 11:25 Urine Opiates Screen Presumptive negative 12/04/16 11:25 Urine Methadone Screen Presumptive negative 12/04/16 11:25 Ur Barbiturates Screen Presumptive negative 12/04/16 11:25 Ur Phencyclidine Scrn Presumptive negative 12/04/16 11:25 Ur Amphetamines Screen Presumptive negative 12/04/16 11:25 U Benzodiazepines Scrn Presumptive negative 12/04/16 11:25 Urine Cocaine Screen Presumptive negative 12/04/16 11:25 U Marijuana (THC) Screen Presumptive positive 12/04/16 11:25 Drugs of Abuse Note Disclamer 12/04/16 11:25 Heparin-induced Plt Ab Weak positive (Negative) H 12/09/16 13:27 UF Heparin High Dose 0 % Release 12/09/16 13:27 ADRIENNE UFH Low Dose 0.1 0 % Release 12/09/16 13:27 ADRIENNE UFH Low Dose 0.5 0 % Release 12/09/16 13:27 Hep Bs Antigen Non-reactive (Negative) 12/09/16 13:27 Hep Bs Antibody, Quant <5 mIU/mL (>=10) L 12/09/16 13:27 Hep B Core Total Ab Nonreactive (Nonreactive) 12/09/16 13:27 Hepatitis C Antibody Non-reactive (NonReactive) 12/09/16 13:27 HIV 1&2 Antibody Rapid Non react (Non React) 12/09/16 13:27 HIV P24 Antigen Non react (Non React) 12/09/16 13:27 Schistocytes Smear None seen 12/09/16 11:29 Blood Type O POSITIVE 12/22/16 15:46 Antibody Screen TNR 12/22/16 15:46 ISAIAH Antibody Screen Negative 12/22/16 15:46 Crossmatch See Detail 12/22/16 15:46
[2017-01-01] MEDS: BENADRYL PO PRN ×2 (16:15→21:53)
[2017-01-01] MEDS: PERCOCET 5/325 PO PRN ×2 (16:15→21:51)
[2017-01-02] MEDS: PERCOCET 5/325 PO PRN ×3 (04:32→22:14)
[2017-01-02] MEDS: BENADRYL PO PRN ×3 (04:32→22:14)
[2017-01-02 05:59] LABS: Hematocrit 25.5 % (30.3-42.9); Mean Corpuscular HGB Conc 31 % (30-34); Mean Corpuscular Hemoglobin 29 pg (28-32); Mean Corpuscular Volume 92 fl (79-97); Platelet Count 427 K/mm3 (140-440); Red Blood Count 2.77 M/mm3 (3.65-5.03); Red Cell Distribution Width 16.6 % (13.2-15.2); White Blood Count 12.7 K/mm3 (4.5-11.0)
[2017-01-02 06:16] LABS: Calcium 8.3 mg/dL (8.4-10.2); Chloride 103.1 mmol/L (98-107); Potassium 4.8 mmol/L (3.6-5.0)
[2017-01-02] MEDS: NOVOLOG SUB-Q SCH ×5 (06:46→23:05)
[2017-01-02] MEDS ORDERED: LEVAQUIN PO SCH (10:00)
[2017-01-02] MEDS: PEPCID PO SCH (10:25)
[2017-01-02] MEDS: LOPRESSOR PO SCH ×2 (10:26→22:15)
[2017-01-02] MEDS: LOVENOX SUB-Q SCH (10:26)
--- NOTE | 2017-01-02 10:54 | Progress Note ---
Assessment and Plan Assessment and plan: The patient is a 46-year-old woman with history of insulin-dependent diabetes mellitus, hypertension, recent SAH and dyslipidemia who presented with DKA, AMS and STEMI with V. fib arrest requiring IV amiodarone suppression. she was intubated and subsequently extubated. she was treated with IV insulin drip for documented DKA without ketones documentation but she was acidotic on admission and pressors but subsequently weaned off and transferred to the medical floor. Uncontrolled DM -Labile -CONTINUE CARB CONSISTENT DIET -70/30 10 units bid. Continue sliding scale Monitor but decrease to low dose scale due to recurrent hypoglycemia Acute hypoxic respiratory failure. Resolved. Now extubated, stable right upper lobe opacity. AWAITING PATHOLOGY FROM [facility]. cytology showing no malignant cells, Spesis secondary to Possible aspiration penumonitis. Inital BCX with coagulase negative staff, 1/2 bottles ?contaminate Repeat cultures, no growth. Discontinue abx Priliminary cultures still growing Gram positive Cocci, GNR on verbal report from nursing staff from [facility], Continue Levaquin. Pt initially completed 7 days. No new fever. Severe Metabolic acidosis Resolved. Neprhology following Cardiac arrest with PEA arrest-->V. fib/?torsades was shocked twice - Likely from hyperkalemia, currently patient is stable. Was treated with amiodarone -Echo EF 40-45% - No recurrence Acute kidney injury secondary to ATN - Nephrology is following. HD Held ASHELY improving. Cr 2.3 for past 3 days NOW 1.6. NO FURTHER NEED FOR DIALYSIS Hyperkalemia- Give Kayxalate. Malnutrition- Moderate: Nutrition consult DKA: - resolved - On sliding insulin Acute metabolic encephalopathy, resolved Nstemi Type 2- Likely from Shock. Moderate protein calorie malnutrition Thrombocytopenia - Resolved Acute on chronic anemia of chronic disease, s/p total 3 units PRBC this admission - Hemoglobin is stable. will check intermittently Depression - Psych consulted and recommend outpatient mental health follow up. Disposition -PENDING PATHOLOGY -DVT prophylaxis: SCDs only due to recent SAH History Interval history: Patient seen and examined, denies any new complaints, No new complaints. no cough, no shortness of breath Hospitalist Physical - Physical exam Narrative exam: VITAL SIGNS: Reviewed. GENERAL: The patient appeared normally developed, cachetic. Vital signs as documented. HEAD: No signs of head trauma. temporal wasting noted EYES: Pupils are equal. Extraocular motions intact. EARS: Hearing grossly intact. MOUTH: Oropharynx is normal. NECK: No adenopathy, no JVD. CHEST: Chest with diminshed breath sounds bilaterally. No wheezes, rales, or rhonchi CARDIAC: Regular rate and rhythm. S1 and S2, without murmurs, gallops, or rubs. VASCULAR: Trace Edema. Peripheral pulses normal and equal in all extremities. ABDOMEN: Soft, without detectable tenderness. No sign of distention. No rebound or guarding, and no masses palpated. Bowel Sounds normal. MUSCULOSKELETAL: Good range of motion of all major joints. Extremities without clubbing, cyanosis. Trace edema. NEUROLOGIC EXAM: Alert and oriented x 3. No focal sensory or strength deficits. Speech normal. Follows commands. PSYCHIATRIC: Mood normal. SKIN: No rash or lesions. - Constitutional Vitals: Temp Pulse Resp BP Pulse Ox 98.0 F 92 H 20 133/84 100 01/02/17 08:00 01/02/17 08:00 01/02/17 08:00 01/02/17 08:00 01/02/17 08:00 General appearance: Present: no acute distress (resting comfortably) Results - Labs CBC & Chem 7: 01/02/17 05:10 01/02/17 05:10 Labs: Laboratory Last Values WBC 12.7 K/mm3 (4.5-11.0) H 01/02/17 05:10 RBC 2.77 M/mm3 (3.65-5.03) L 01/02/17 05:10 Hgb 8.0 gm/dl (10.1-14.3) L 01/02/17 05:10 Hct 25.5 % (30.3-42.9) L 01/02/17 05:10 MCV 92 fl (79-97) 01/02/17 05:10 MCH 29 pg (28-32) 01/02/17 05:10 MCHC 31 % (30-34) 01/02/17 05:10 RDW 16.6 % (13.2-15.2) H 01/02/17 05:10 Plt Count 427 K/mm3 (140-440) 01/02/17 05:10 Lymph % (Auto) 8.1 % (13.4-35.0) L 12/22/16 06:45 Giles % (Auto) 5.3 % (0.0-7.3) 12/22/16 06:45 Eos % (Auto) 1.4 % (0.0-4.3) 12/22/16 06:45 Baso % (Auto) 0.9 % (0.0-1.8) 12/22/16 06:45 Lymph # 1.4 K/mm3 (1.2-5.4) 12/22/16 06:45 Giles # 0.9 K/mm3 (0.0-0.8) H 12/22/16 06:45 Eos # 0.2 K/mm3 (0.0-0.4) 12/22/16 06:45 Baso # 0.2 K/mm3 (0.0-0.1) H 12/22/16 06:45 Add Manual Diff Complete 12/13/16 07:49 Total Counted 100 12/13/16 07:49 Seg Neutrophils % 84.3 % (40.0-70.0) H 12/22/16 06:45 Seg Neuts % (Manual) 89.0 % (40.0-70.0) H 12/13/16 07:49 Band Neutrophils % 1.0 % 12/13/16 07:49 Lymphocytes % (Manual) 7.0 % (13.4-35.0) L 12/13/16 07:49 Reactive Lymphs % (Man) 0 % 12/13/16 07:49 Monocytes % (Manual) 3.0 % (0.0-7.3) 12/13/16 07:49 Eosinophils % (Manual) 0 % (0.0-4.3) 12/13/16 07:49 Basophils % (Manual) 0 % (0.0-1.8) 12/13/16 07:49 Metamyelocytes % 0 % 12/13/16 07:49 Myelocytes % 0 % 12/13/16 07:49 Promyelocytes % 0 % 12/13/16 07:49 Blast Cells % 0 % 12/13/16 07:49 Nucleated RBC % Not Reportable 12/13/16 07:49 Seg Neutrophils # 14.6 K/mm3 (1.8-7.7) H 12/22/16 06:45 Seg Neutrophils # Man 21.4 K/mm3 (1.8-7.7) H 12/13/16 07:49 Band Neutrophils # 0.2 K/mm3 12/13/16 07:49 Lymphocytes # (Manual) 1.7 K/mm3 (1.2-5.4) 12/13/16 07:49 Abs React Lymphs (Man) 0.0 K/mm3 12/13/16 07:49 Monocytes # (Manual) 0.7 K/mm3 (0.0-0.8) 12/13/16 07:49 Eosinophils # (Manual) 0.0 K/mm3 (0.0-0.4) 12/13/16 07:49 Basophils # (Manual) 0.0 K/mm3 (0.0-0.1) 12/13/16 07:49 Metamyelocytes # 0.0 K/mm3 12/13/16 07:49 Myelocytes # 0.0 K/mm3 12/13/16 07:49 Promyelocytes # 0.0 K/mm3 12/13/16 07:49 Blast Cells # 0.0 K/mm3 12/13/16 07:49 WBC Morphology Not Reportable 12/13/16 07:49 Hypersegmented Neuts Not Reportable 12/13/16 07:49 Hyposegmented Neuts Not Reportable 12/13/16 07:49 Hypogranular Neuts Not Reportable 12/13/16 07:49 Smudge Cells Not Reportable 12/13/16 07:49 Toxic Granulation Not Reportable 12/13/16 07:49 Toxic Vacuolation Not Reportable 12/13/16 07:49 Dohle Bodies Not Reportable 12/13/16 07:49 Pelger-Huet Anomaly Not Reportable 12/13/16 07:49 Mary Rods Not Reportable 12/13/16 07:49 Platelet Estimate Cons 12/13/16 07:49 Clumped Platelets Not Reportable 12/13/16 07:49 Plt Clumps, EDTA Not Reportable 12/13/16 07:49 Large Platelets Rare 12/13/16 07:49 Giant Platelets Not Reportable 12/13/16 07:49 Platelet Satelliting Not Reportable 12/13/16 07:49 Plt Morphology Comment Not Reportable 12/13/16 07:49 RBC Morphology Not Reportable 12/13/16 07:49 Dimorphic RBCs Not Reportable 12/13/16 07:49 Polychromasia Not Reportable 12/13/16 07:49 Hypochromasia 1+ 12/13/16 07:49 Poikilocytosis Not Reportable 12/13/16 07:49 Anisocytosis 1+ 12/13/16 07:49 Microcytosis Not Reportable 12/13/16 07:49 Macrocytosis Not Reportable 12/13/16 07:49 Spherocytes Not Reportable 12/13/16 07:49 Pappenheimer Bodies Not Reportable 12/13/16 07:49 Sickle Cells Not Reportable 12/13/16 07:49 Target Cells Few 12/13/16 07:49 Tear Drop Cells Not Reportable 12/13/16 07:49 Ovalocytes Not Reportable 12/13/16 07:49 Helmet Cells Not Reportable 12/13/16 07:49 [place] Bodies Not Reportable 12/13/16 07:49 [place] Rings Not Reportable 12/13/16 07:49 [place] Cells Not Reportable 12/13/16 07:49 Bite Cells Not Reportable 12/13/16 07:49 Crenated Cell Not Reportable 12/13/16 07:49 Elliptocytes Not Reportable 12/13/16 07:49 Acanthocytes (Spur) Not Reportable 12/13/16 07:49 Rouleaux Not Reportable 12/13/16 07:49 Hemoglobin C Crystals Not Reportable 12/13/16 07:49 Schistocytes Not Reportable 12/13/16 07:49 Malaria parasites Not Reportable 12/13/16 07:49 Percent Retic 0.23 % (0.78-2.58) L 12/09/16 11:29 Michael Bodies Not Reportable 12/13/16 07:49 Haptoglobin 271 mg/dL (43-212) H 12/08/16 21:30 Hem Pathologist Commnt No 12/13/16 07:49 PT 15.3 Sec. (12.2-14.9) H 12/08/16 19:00 INR 1.22 (0.87-1.13) H 12/08/16 19:00 APTT 36.2 Sec. (24.2-36.6) 12/08/16 19:00 Fibrinogen 563 mg/dl (211-480) H 12/08/16 19:00 D-Dimer 5507.36 ng/mlDDU (0-234) H 12/08/16 19:00 Heparin Anti-Xa, Unfract Negative (Negative) 12/09/16 13:27 POC ABG pH 7.326 (7.35-7.45) L 12/09/16 12:02 POC ABG pCO2 37.7 (35-45) 12/09/16 12:02 POC ABG pO2 115 (80-105) H 12/09/16 12:02 POC ABG HCO3 19.7 12/09/16 12:02 POC ABG Total CO2 21 12/09/16 12:02 POC ABG O2 Sat 98 12/09/16 12:02 POC ABG Base Excess -6 12/09/16 12:02 FiO2 30 % 12/09/16 12:02 Sodium 140 mmol/L (137-145) 01/02/17 05:10 Potassium 4.8 mmol/L (3.6-5.0) 01/02/17 05:10 Chloride 103.1 mmol/L (98-107) 01/02/17 05:10 Carbon Dioxide 24 mmol/L (22-30) 01/02/17 05:10 Anion Gap 18 mmol/L 01/02/17 05:10 BUN 21 mg/dL (7-17) H 01/02/17 05:10 Creatinine 1.5 mg/dL (0.7-1.2) H 01/02/17 05:10 Estimated GFR 45 ml/min 01/02/17 05:10 BUN/Creatinine Ratio 14.00 % 01/02/17 05:10 Glucose 313 mg/dL (65-100) H 01/02/17 05:10 POC Glucose 304 (70-105) H 01/02/17 06:03 Lactic Acid 6.90 mmol/L (0.7-2.0) H* 12/07/16 07:30 Calcium 8.3 mg/dL (8.4-10.2) L 01/02/17 05:10 Phosphorus 2.60 mg/dL (2.5-4.5) 12/26/16 Unknown Magnesium 1.40 mg/dL (1.7-2.3) L 01/01/17 01:46 Iron 66 ug/dL (37-170) 12/21/16 05:00 TIBC 193.20 mcg/dL (250-450) L 12/21/16 05:00 Transferrin 138 mg/dl (192-382) L 12/21/16 05:00 Ferritin 321.4 ng/mL (13.0-400.0) 12/21/16 05:00 Total Bilirubin 1.40 mg/dL (0.1-1.2) H 12/07/16 21:35 Direct Bilirubin 0.9 mg/dL (0-0.2) H 12/07/16 21:35 Indirect Bilirubin 0.5 mg/dL 12/07/16 21:35 AST 94 units/L (5-40) H 12/07/16 21:35 ALT 142 units/L (7-56) H 12/07/16 21:35 Alkaline Phosphatase 249 units/L (35-129) H 12/07/16 21:35 Lactate Dehydrogenase 382 units/L (91-180) H 12/08/16 19:00 Total Creatine Kinase 123 units/L (30-135) 12/04/16 09:55 CK-MB (CK-2) 4.6 ng/mL (0.0-4.0) H 12/04/16 09:55 CK-MB (CK-2) Rel Index 3.7 (0-4) 12/04/16 09:55 Troponin T 0.140 ng/mL (0.00-0.029) H* D 12/04/16 09:55 C-Reactive Protein 39.40 mg/dL (0.00-1.30) H 12/07/16 06:00 Total Protein 4.6 g/dL (6.3-8.2) L D 12/07/16 21:35 Albumin 2.1 g/dL (3.9-5) L 12/07/16 21:35 Albumin/Globulin Ratio 0.8 % 12/07/16 21:35 Triglycerides 570 mg/dL (2-149) H 12/04/16 07:55 Cholesterol 221 mg/dL (50-199) H 12/04/16 07:55 LDL Cholesterol Direct TNR 12/04/16 07:55 HDL Cholesterol 37 mg/dL (40-59) L 12/04/16 07:55 Cholesterol/HDL Ratio 5.97 % 12/04/16 07:55 Serotonin Release Assay See scanned report 12/09/16 13:27 Vitamin B12 > 2000 pg/mL (211-911) H 12/09/16 13:27 Folate 8.10 ng/mL (7.3-26.0) 12/09/16 13:27 TSH 1.600 mlU/mL (0.270-4.200) 12/03/16 23:20 Urine Color Yellow (Yellow) 12/04/16 11:25 Urine Turbidity Slightly-cloudy (Clear) 12/04/16 11:25 Urine pH 5.0 (5.0-7.0) 12/04/16 11:25 Ur Specific Mary D 1.018 (1.003-1.030) 12/04/16 11:25 Urine Protein 30 mg/dl mg/dL (Negative) 12/04/16 11:25 Urine Glucose (UA) >=500 mg/dL (Negative) 12/04/16 11:25 Urine Ketones Tr mg/dL (Negative) 12/04/16 11:25 Urine Blood Sm (Negative) 12/04/16 11:25 Urine Nitrite Neg (Negative) 12/04/16 11:25 Urine Bilirubin Neg (Negative) 12/04/16 11:25 Urine Urobilinogen < 2.0 mg/dL (<2.0) 12/04/16 11:25 Ur Leukocyte Esterase Neg (Negative) 12/04/16 11:25 Urine WBC (Auto) 4.0 /HPF (0.0-6.0) 12/04/16 11:25 Urine RBC (Auto) 2.0 /HPF (0.0-6.0) 12/04/16 11:25 U Epithel Cells (Auto) < 1.0 /HPF (0-13.0) 12/04/16 11:25 Urine Mucus Few /HPF 12/04/16 11:25 Urine Osmolality 419 Mosm/kg 12/04/16 11:25 Urine Total Volume 200 12/24/16 00:00 Urine Creatinine 239.9 mg/dL (0.1-20.0) H 12/24/16 00:00 Height (in) 64.0 inches 12/24/16 00:00 Weight (lb) 114.0 lbs 12/24/16 00:00 Creatinine Clearance 12 12/24/16 00:00 Protein/Creatinin Ratio 1.12 12/04/16 11:25 Urine Sodium 26 mEq/L 12/04/16 11:25 Urine Total Protein 33 mg/dL (5-11.8) H 12/04/16 11:25 Urine Opiates Screen Presumptive negative 12/04/16 11:25 Urine Methadone Screen Presumptive negative 12/04/16 11:25 Ur Barbiturates Screen Presumptive negative 12/04/16 11:25 Ur Phencyclidine Scrn Presumptive negative 12/04/16 11:25 Ur Amphetamines Screen Presumptive negative 12/04/16 11:25 U Benzodiazepines Scrn Presumptive negative 12/04/16 11:25 Urine Cocaine Screen Presumptive negative 12/04/16 11:25 U Marijuana (THC) Screen Presumptive positive 12/04/16 11:25 Drugs of Abuse Note Disclamer 12/04/16 11:25 Heparin-induced Plt Ab Weak positive (Negative) H 12/09/16 13:27 UF Heparin High Dose 0 % Release 12/09/16 13:27 ADRIENNE UFH Low Dose 0.1 0 % Release 12/09/16 13:27 ADRIENNE UFH Low Dose 0.5 0 % Release 12/09/16 13:27 Hep Bs Antigen Non-reactive (Negative) 12/09/16 13:27 Hep Bs Antibody, Quant <5 mIU/mL (>=10) L 12/09/16 13:27 Hep B Core Total Ab Nonreactive (Nonreactive) 12/09/16 13:27 Hepatitis C Antibody Non-reactive (NonReactive) 12/09/16 13:27 HIV 1&2 Antibody Rapid Non react (Non React) 12/09/16 13:27 HIV P24 Antigen Non react (Non React) 12/09/16 13:27 Schistocytes Smear None seen 12/09/16 11:29 Blood Type O POSITIVE 12/22/16 15:46 Antibody Screen TNR 12/22/16 15:46 ISAIAH Antibody Screen Negative 12/22/16 15:46 Crossmatch See Detail 12/22/16 15:46
--- NOTE | 2017-01-02 20:00 | Progress Note ---
Assessment and Plan Patient alert, awake. No acute respiratory distress.O2 saturation 99% on 2 litres O2.. Chest xray reported stable right upper lobe infiltrate and improving atelectasis right lower lobe.CAT scan reported persistent right upper lobe Opacity. Patient undergone Bronchoscopy yesterday. No endobronchial lesion seen.Bronchoscopy specimen results pending. - Patient Problems (1) DKA (diabetic ketoacidoses) Current Visit: Yes Status: Acute Qualifiers: Diabetes mellitus type: type 1 Diabetes mellitus complication detail: without coma Diabetes mellitus residential insulin use: D Qualified Code(s): E10.10 - Type 1 diabetes mellitus with ketoacidosis without coma Plan to address problem: Patient is on S/C insulin. Patient alert, awake. DKA improved. Management as per primary care. (2) Metabolic encephalopathy Current Visit: Yes Status: Acute Plan to address problem: Patient alert, awake, following commands. Appears encephalopathy improving. Management as per primary care. (3) Pulmonary infiltrate in right lung on chest x-ray Current Visit: Yes Status: Acute Plan to address problem: Patient off the Antibiotics. Patients chest xray stable right upper lobe infiltrate and improving right lower lobe atelectasis. Obtaining CAT scan of chest with out contrast reported persistent right upper lobe opacity. Patient undergone bronchoscopy.Bronchoscopy specimen results pending.. Subjective Date of service: 01/02/17 Principal diagnosis: Sepsis; Pneumonia; ASHELY on dialysis; Diabetes Interval history: Patient alert, awake. No acute respiratory distress.O2 saturation 99%on 2 litres O2. . Chest xray reported stable right upper lobe infiltrate and improving atelectasis right lower lobe.CT of chest reported right upper lobe Persistent Opacity. Patient undergone Bronchoscopy yesterday. No endobronchial lesion seen.Bronchoscopy specimen results pending. Objective Vital Signs - 12hr 01/02/17 01/02/17 01/02/17 08:00 09:00 10:00 Temperature 98.0 F Pulse Rate 92 H 88 Pulse Rate [ 88 Right Radial] Respiratory 20 20 Rate Blood Pressure 133/84 O2 Sat by Pulse 100 100 Oximetry 01/02/17 01/02/17 01/02/17 11:33 12:23 16:00 Temperature 98.5 F 98.3 F Pulse Rate 100 H 96 H Pulse Rate [ Right Radial] Respiratory 20 22 20 Rate Blood Pressure 135/80 158/92 O2 Sat by Pulse 98 99 Oximetry Constitutional: no acute distress, alert Eyes: non-icteric ENT: oropharynx moist Neck: supple, no lymphadenopathy Effort: normal Ascultation: Right: rhonchi, Bilateral: diminished breath sounds, rales (scant) Cardiovascular: regular rate and rhythm Gastrointestinal: normoactive bowel sounds, soft, non-tender, non-distended Integumentary: normal Extremities: no cyanosis, no edema, pulses normal, no ischemia or petechiae Neurologic: normal mental status, non-focal exam, pupils equal and round, motor strength normal and Psychiatric: mood appropriate, affect normal CBC and BMP: 01/02/17 05:10 01/02/17 05:10 ABG, PT/INR, D-dimer: ABG POC ABG pH 7.326 (7.35-7.45) L 12/09/16 12:02 POC ABG pCO2 37.7 (35-45) 12/09/16 12:02 POC ABG pO2 115 (80-105) H 12/09/16 12:02 POC ABG HCO3 19.7 12/09/16 12:02 POC ABG Total CO2 21 12/09/16 12:02 POC ABG O2 Sat 98 12/09/16 12:02 PT/INR, D-dimer PT 15.3 Sec. (12.2-14.9) H 12/08/16 19:00 INR 1.22 (0.87-1.13) H 12/08/16 19:00 D-Dimer 5507.36 ng/mlDDU (0-234) H 12/08/16 19:00 Abnormal lab findings: Abnormal Labs 12/04/16 12/04/16 12/04/16 01:19 01:36 02:21 WBC RBC Hgb Hct MCV MCHC RDW Plt Count Lymph % (Auto) Starr % (Auto) Starr # Baso # Seg Neutrophils % Seg Neuts % (Manual) Lymphocytes % (Manual) Monocytes % (Manual) Nucleated RBC % Seg Neutrophils # Seg Neutrophils # Man Lymphocytes # (Manual) Monocytes # (Manual) Percent Retic Haptoglobin PT INR Fibrinogen D-Dimer POC ABG pH 6.759 L POC ABG pCO2 POC ABG pO2 437 H Sodium Potassium Chloride Carbon Dioxide BUN Creatinine Glucose POC Glucose > 500 H Lactic Acid Calcium Phosphorus 15.70 H Magnesium 4.30 H Iron TIBC Transferrin Total Bilirubin Direct Bilirubin AST ALT Alkaline Phosphatase Lactate Dehydrogenase CK-MB (CK-2) Troponin T C-Reactive Protein Total Protein Albumin Triglycerides Cholesterol HDL Cholesterol Vitamin B12 Urine Creatinine Urine Total Protein Heparin-induced Plt Ab Hep Bs Antibody, Quant Crossmatch 12/04/16 12/04/16 12/04/16 03:55 04:00 05:11 WBC RBC Hgb Hct MCV MCHC RDW Plt Count Lymph % (Auto) Starr % (Auto) Starr # Baso # Seg Neutrophils % Seg Neuts % (Manual) Lymphocytes % (Manual) Monocytes % (Manual) Nucleated RBC % Seg Neutrophils # Seg Neutrophils # Man Lymphocytes # (Manual) Monocytes # (Manual) Percent Retic Haptoglobin PT INR Fibrinogen D-Dimer POC ABG pH POC ABG pCO2 POC ABG pO2 Sodium Potassium Chloride 91.4 L Carbon Dioxide 8 L* BUN 55 H Creatinine 2.8 H Glucose 1610 H* POC Glucose > 500 H > 500 H Lactic Acid Calcium Phosphorus Magnesium Iron TIBC Transferrin Total Bilirubin Direct Bilirubin AST ALT Alkaline Phosphatase Lactate Dehydrogenase CK-MB (CK-2) Troponin T C-Reactive Protein Total Protein Albumin Triglycerides Cholesterol HDL Cholesterol Vitamin B12 Urine Creatinine Urine Total Protein Heparin-induced Plt Ab Hep Bs Antibody, Quant Crossmatch 12/04/16 12/04/16 12/04/16 05:40 05:54 06:58 WBC RBC Hgb Hct MCV MCHC RDW Plt Count Lymph % (Auto) Starr % (Auto) Starr # Baso # Seg Neutrophils % Seg Neuts % (Manual) Lymphocytes % (Manual) Monocytes % (Manual) Nucleated RBC % Seg Neutrophils # Seg Neutrophils # Man Lymphocytes # (Manual) Monocytes # (Manual) Percent Retic Haptoglobin PT INR Fibrinogen D-Dimer POC ABG pH 7.154 L POC ABG pCO2 27.5 L POC ABG pO2 111 H Sodium Potassium Chloride Carbon Dioxide BUN Creatinine Glucose POC Glucose > 500 H > 500 H Lactic Acid Calcium Phosphorus Magnesium Iron TIBC Transferrin Total Bilirubin Direct Bilirubin AST ALT Alkaline Phosphatase Lactate Dehydrogenase CK-MB (CK-2) Troponin T C-Reactive Protein Total Protein Albumin Triglycerides Cholesterol HDL Cholesterol Vitamin B12 Urine Creatinine Urine Total Protein Heparin-induced Plt Ab Hep Bs Antibody, Quant Crossmatch 12/04/16 12/04/16 12/04/16 07:49 07:55 07:55 WBC RBC Hgb Hct MCV MCHC RDW Plt Count Lymph % (Auto) Starr % (Auto) Starr # Baso # Seg Neutrophils % Seg Neuts % (Manual) Lymphocytes % (Manual) Monocytes % (Manual) Nucleated RBC % Seg Neutrophils # Seg Neutrophils # Man Lymphocytes # (Manual) Monocytes # (Manual) Percent Retic Haptoglobin PT INR Fibrinogen D-Dimer POC ABG pH POC ABG pCO2 POC ABG pO2 Sodium Potassium 3.3 L Chloride Carbon Dioxide 9 L* BUN 53 H Creatinine 2.9 H Glucose 1229 H* POC Glucose > 500 H Lactic Acid Calcium Phosphorus Magnesium Iron TIBC Transferrin Total Bilirubin Direct Bilirubin AST ALT Alkaline Phosphatase Lactate Dehydrogenase CK-MB (CK-2) Troponin T 0.111 H* D C-Reactive Protein Total Protein Albumin Triglycerides 570 H Cholesterol 221 H HDL Cholesterol 37 L Vitamin B12 Urine Creatinine Urine Total Protein Heparin-induced Plt Ab Hep Bs Antibody, Quant Crossmatch 12/04/16 12/04/16 12/04/16 07:55 09:55 09:55 WBC RBC 2.90 L Hgb 8.5 L Hct 30.2 L D MCV 105 H D MCHC 28 L RDW 19.2 H Plt Count Lymph % (Auto) Starr % (Auto) Starr # Baso # Seg Neutrophils % Seg Neuts % (Manual) Lymphocytes % (Manual) 11.0 L Monocytes % (Manual) Nucleated RBC % Seg Neutrophils # Seg Neutrophils # Man Lymphocytes # (Manual) 0.6 L Monocytes # (Manual) Percent Retic Haptoglobin PT INR Fibrinogen D-Dimer POC ABG pH POC ABG pCO2 POC ABG pO2 Sodium Potassium 3.1 L Chloride Carbon Dioxide 7 L* BUN 51 H Creatinine 3.2 H Glucose 969 H* POC Glucose Lactic Acid Calcium 10.4 H D Phosphorus Magnesium Iron TIBC Transferrin Total Bilirubin Direct Bilirubin AST ALT Alkaline Phosphatase Lactate Dehydrogenase CK-MB (CK-2) 4.6 H Troponin T 0.140 H* D C-Reactive Protein Total Protein Albumin Triglycerides Cholesterol HDL Cholesterol Vitamin B12 Urine Creatinine Urine Total Protein Heparin-induced Plt Ab Hep Bs Antibody, Quant Crossmatch 12/04/16 12/04/16 12/04/16 09:55 10:37 11:25 WBC RBC Hgb Hct MCV MCHC RDW Plt Count Lymph % (Auto) Starr % (Auto) Starr # Baso # Seg Neutrophils % Seg Neuts % (Manual) Lymphocytes % (Manual) Monocytes % (Manual) Nucleated RBC % Seg Neutrophils # Seg Neutrophils # Man Lymphocytes # (Manual) Monocytes # (Manual) Percent Retic Haptoglobin PT INR Fibrinogen D-Dimer POC ABG pH 7.215 L POC ABG pCO2 18.8 L POC ABG pO2 193 H Sodium Potassium Chloride Carbon Dioxide BUN Creatinine Glucose POC Glucose Lactic Acid Calcium Phosphorus Magnesium 3.70 H Iron TIBC Transferrin Total Bilirubin Direct Bilirubin AST ALT Alkaline Phosphatase Lactate Dehydrogenase CK-MB (CK-2) Troponin T C-Reactive Protein Total Protein Albumin Triglycerides Cholesterol HDL Cholesterol Vitamin B12 Urine Creatinine 29.5 H Urine Total Protein 33 H Heparin-induced Plt Ab Hep Bs Antibody, Quant Crossmatch 12/04/16 12/04/16 12/04/16 12:00 12:48 13:00 WBC RBC Hgb Hct MCV MCHC RDW Plt Count Lymph % (Auto) Starr % (Auto) Starr # Baso # Seg Neutrophils % Seg Neuts % (Manual) Lymphocytes % (Manual) Monocytes % (Manual) Nucleated RBC % Seg Neutrophils # Seg Neutrophils # Man Lymphocytes # (Manual) Monocytes # (Manual) Percent Retic Haptoglobin PT INR Fibrinogen D-Dimer POC ABG pH POC ABG pCO2 POC ABG pO2 Sodium 149 H 150 H Potassium 3.2 L 3.2 L Chloride 109.1 H Carbon Dioxide 8 L* 8 L* BUN 52 H 49 H Creatinine 3.4 H 3.1 H Glucose 723 H* 574 H* POC Glucose Lactic Acid 18.80 H* Calcium Phosphorus Magnesium Iron TIBC Transferrin Total Bilirubin Direct Bilirubin AST ALT Alkaline Phosphatase Lactate Dehydrogenase CK-MB (CK-2) Troponin T C-Reactive Protein Total Protein Albumin Triglycerides Cholesterol HDL Cholesterol Vitamin B12 Urine Creatinine Urine Total Protein Heparin-induced Plt Ab Hep Bs Antibody, Quant Crossmatch 12/04/16 12/04/16 12/04/16 13:01 14:41 16:06 WBC RBC Hgb Hct MCV MCHC RDW Plt Count Lymph % (Auto) Starr % (Auto) Starr # Baso # Seg Neutrophils % Seg Neuts % (Manual) Lymphocytes % (Manual) Monocytes % (Manual) Nucleated RBC % Seg Neutrophils # Seg Neutrophils # Man Lymphocytes # (Manual) Monocytes # (Manual) Percent Retic Haptoglobin PT INR Fibrinogen D-Dimer POC ABG pH POC ABG pCO2 POC ABG pO2 Sodium 151 H Potassium 3.2 L Chloride 108.1 H Carbon Dioxide 10 L BUN 49 H Creatinine 3.0 H Glucose 383 H POC Glucose 292 H Lactic Acid Calcium Phosphorus Magnesium Iron TIBC Transferrin Total Bilirubin Direct Bilirubin AST ALT Alkaline Phosphatase Lactate Dehydrogenase CK-MB (CK-2) Troponin T C-Reactive Protein 3.50 H Total Protein Albumin Triglycerides Cholesterol HDL Cholesterol Vitamin B12 Urine Creatinine Urine Total Protein Heparin-induced Plt Ab Hep Bs Antibody, Quant Crossmatch 12/04/16 12/04/16 12/04/16 17:15 17:25 18:07 WBC RBC Hgb Hct MCV MCHC RDW Plt Count Lymph % (Auto) Starr % (Auto) Starr # Baso # Seg Neutrophils % Seg Neuts % (Manual) Lymphocytes % (Manual) Monocytes % (Manual) Nucleated RBC % Seg Neutrophils # Seg Neutrophils # Man Lymphocytes # (Manual) Monocytes # (Manual) Percent Retic Haptoglobin PT INR Fibrinogen D-Dimer POC ABG pH 7.255 L POC ABG pCO2 16.9 L POC ABG pO2 169 H Sodium Potassium Chloride Carbon Dioxide BUN Creatinine Glucose POC Glucose 246 H Lactic Acid 18.50 H* Calcium Phosphorus Magnesium Iron TIBC Transferrin Total Bilirubin Direct Bilirubin AST ALT Alkaline Phosphatase Lactate Dehydrogenase CK-MB (CK-2) Troponin T C-Reactive Protein Total Protein Albumin Triglycerides Cholesterol HDL Cholesterol Vitamin B12 Urine Creatinine Urine Total Protein Heparin-induced Plt Ab Hep Bs Antibody, Quant Crossmatch 12/04/16 12/04/16 12/04/16 19:34 20:31 21:15 WBC RBC Hgb Hct MCV MCHC RDW Plt Count Lymph % (Auto) Starr % (Auto) Starr # Baso # Seg Neutrophils % Seg Neuts % (Manual) Lymphocytes % (Manual) Monocytes % (Manual) Nucleated RBC % Seg Neutrophils # Seg Neutrophils # Man Lymphocytes # (Manual) Monocytes # (Manual) Percent Retic Haptoglobin PT INR Fibrinogen D-Dimer POC ABG pH POC ABG pCO2 POC ABG pO2 Sodium Potassium Chloride Carbon Dioxide BUN Creatinine Glucose POC Glucose 189 H 126 H 139 H Lactic Acid Calcium Phosphorus Magnesium Iron TIBC Transferrin Total Bilirubin Direct Bilirubin AST ALT Alkaline Phosphatase Lactate Dehydrogenase CK-MB (CK-2) Troponin T C-Reactive Protein Total Protein Albumin Triglycerides Cholesterol HDL Cholesterol Vitamin B12 Urine Creatinine Urine Total Protein Heparin-induced Plt Ab Hep Bs Antibody, Quant Crossmatch 12/04/16 12/04/16 12/04/16 21:25 22:37 23:35 WBC RBC Hgb Hct MCV MCHC RDW Plt Count Lymph % (Auto) Starr % (Auto) Starr # Baso # Seg Neutrophils % Seg Neuts % (Manual) Lymphocytes % (Manual) Monocytes % (Manual) Nucleated RBC % Seg Neutrophils # Seg Neutrophils # Man Lymphocytes # (Manual) Monocytes # (Manual) Percent Retic Haptoglobin PT INR Fibrinogen D-Dimer POC ABG pH 7.294 L POC ABG pCO2 16.7 L POC ABG pO2 169 H Sodium Potassium Chloride Carbon Dioxide BUN Creatinine Glucose POC Glucose 131 H 106 H Lactic Acid Calcium Phosphorus Magnesium Iron TIBC Transferrin Total Bilirubin Direct Bilirubin AST ALT Alkaline Phosphatase Lactate Dehydrogenase CK-MB (CK-2) Troponin T C-Reactive Protein Total Protein Albumin Triglycerides Cholesterol HDL Cholesterol Vitamin B12 Urine Creatinine Urine Total Protein Heparin-induced Plt Ab Hep Bs Antibody, Quant Crossmatch 12/05/16 12/05/16 12/05/16 02:40 02:50 02:50 WBC RBC Hgb Hct MCV MCHC RDW Plt Count Lymph % (Auto) Starr % (Auto) Starr # Baso # Seg Neutrophils % Seg Neuts % (Manual) Lymphocytes % (Manual) Monocytes % (Manual) Nucleated RBC % Seg Neutrophils # Seg Neutrophils # Man Lymphocytes # (Manual) Monocytes # (Manual) Percent Retic Haptoglobin PT INR Fibrinogen D-Dimer POC ABG pH POC ABG pCO2 POC ABG pO2 Sodium 151 H Potassium Chloride 113.8 H Carbon Dioxide 12 L BUN 46 H Creatinine 3.2 H Glucose 165 H POC Glucose 109 H Lactic Acid 9.80 H* Calcium 8.3 L Phosphorus Magnesium Iron TIBC Transferrin Total Bilirubin Direct Bilirubin AST ALT Alkaline Phosphatase Lactate Dehydrogenase CK-MB (CK-2) Troponin T C-Reactive Protein Total Protein Albumin Triglycerides Cholesterol HDL Cholesterol Vitamin B12 Urine Creatinine Urine Total Protein Heparin-induced Plt Ab Hep Bs Antibody, Quant Crossmatch 12/05/16 12/05/16 12/05/16 04:01 04:30 04:30 WBC 19.1 H RBC 2.91 L Hgb 8.0 L Hct 25.4 L MCV MCHC RDW 17.8 H Plt Count Lymph % (Auto) Starr % (Auto) Starr # Baso # Seg Neutrophils % Seg Neuts % (Manual) 17.0 L Lymphocytes % (Manual) 7.0 L Monocytes % (Manual) Nucleated RBC % 3.0 H Seg Neutrophils # Seg Neutrophils # Man Lymphocytes # (Manual) Monocytes # (Manual) Percent Retic Haptoglobin PT INR Fibrinogen D-Dimer POC ABG pH POC ABG pCO2 POC ABG pO2 Sodium 152 H Potassium Chloride 113.5 H Carbon Dioxide 12 L BUN 47 H Creatinine 3.2 H Glucose 133 H POC Glucose 179 H Lactic Acid Calcium 8.3 L Phosphorus 1.00 L D Magnesium Iron TIBC Transferrin Total Bilirubin Direct Bilirubin AST ALT Alkaline Phosphatase Lactate Dehydrogenase CK-MB (CK-2) Troponin T C-Reactive Protein Total Protein Albumin Triglycerides Cholesterol HDL Cholesterol Vitamin B12 Urine Creatinine Urine Total Protein Heparin-induced Plt Ab Hep Bs Antibody, Quant Crossmatch 12/05/16 12/05/16 12/05/16 05:32 08:01 08:48 WBC RBC Hgb Hct MCV MCHC RDW Plt Count Lymph % (Auto) Starr % (Auto) Starr # Baso # Seg Neutrophils % Seg Neuts % (Manual) Lymphocytes % (Manual) Monocytes % (Manual) Nucleated RBC % Seg Neutrophils # Seg Neutrophils # Man Lymphocytes # (Manual) Monocytes # (Manual) Percent Retic Haptoglobin PT INR Fibrinogen D-Dimer POC ABG pH POC ABG pCO2 17.6 L POC ABG pO2 62 L Sodium Potassium Chloride Carbon Dioxide BUN Creatinine Glucose POC Glucose 126 H 130 H Lactic Acid Calcium Phosphorus Magnesium Iron TIBC Transferrin Total Bilirubin Direct Bilirubin AST ALT Alkaline Phosphatase Lactate Dehydrogenase CK-MB (CK-2) Troponin T C-Reactive Protein Total Protein Albumin Triglycerides Cholesterol HDL Cholesterol Vitamin B12 Urine Creatinine Urine Total Protein Heparin-induced Plt Ab Hep Bs Antibody, Quant Crossmatch 12/05/16 12/05/16 12/05/16 08:54 12:01 15:15 WBC RBC Hgb Hct MCV MCHC RDW Plt Count Lymph % (Auto) Starr % (Auto) Starr # Baso # Seg Neutrophils % Seg Neuts % (Manual) Lymphocytes % (Manual) Monocytes % (Manual) Nucleated RBC % Seg Neutrophils # Seg Neutrophils # Man Lymphocytes # (Manual) Monocytes # (Manual) Percent Retic Haptoglobin PT INR Fibrinogen D-Dimer POC ABG pH POC ABG pCO2 POC ABG pO2 Sodium Potassium Chloride Carbon Dioxide BUN Creatinine Glucose POC Glucose 157 H 117 H 166 H Lactic Acid Calcium Phosphorus Magnesium Iron TIBC Transferrin Total Bilirubin Direct Bilirubin AST ALT Alkaline Phosphatase Lactate Dehydrogenase CK-MB (CK-2) Troponin T C-Reactive Protein Total Protein Albumin Triglycerides Cholesterol HDL Cholesterol Vitamin B12 Urine Creatinine Urine Total Protein Heparin-induced Plt Ab Hep Bs Antibody, Quant Crossmatch 12/05/16 12/05/16 12/05/16 16:10 16:55 17:08 WBC RBC Hgb Hct MCV MCHC RDW Plt Count Lymph % (Auto) Starr % (Auto) Starr # Baso # Seg Neutrophils % Seg Neuts % (Manual) Lymphocytes % (Manual) Monocytes % (Manual) Nucleated RBC % Seg Neutrophils # Seg Neutrophils # Man Lymphocytes # (Manual) Monocytes # (Manual) Percent Retic Haptoglobin PT INR Fibrinogen D-Dimer POC ABG pH POC ABG pCO2 POC ABG pO2 Sodium Potassium Chloride Carbon Dioxide BUN Creatinine Glucose POC Glucose 178 H 169 H Lactic Acid Calcium Phosphorus 5.00 H D Magnesium Iron TIBC Transferrin Total Bilirubin Direct Bilirubin AST ALT Alkaline Phosphatase Lactate Dehydrogenase CK-MB (CK-2) Troponin T C-Reactive Protein Total Protein Albumin Triglycerides Cholesterol HDL Cholesterol Vitamin B12 Urine Creatinine Urine Total Protein Heparin-induced Plt Ab Hep Bs Antibody, Quant Crossmatch 12/05/16 12/05/16 12/05/16 18:08 18:51 20:04 WBC RBC Hgb Hct MCV MCHC RDW Plt Count Lymph % (Auto) Starr % (Auto) Starr # Baso # Seg Neutrophils % Seg Neuts % (Manual) Lymphocytes % (Manual) Monocytes % (Manual) Nucleated RBC % Seg Neutrophils # Seg Neutrophils # Man Lymphocytes # (Manual) Monocytes # (Manual) Percent Retic Haptoglobin PT INR Fibrinogen D-Dimer POC ABG pH POC ABG pCO2 POC ABG pO2 Sodium Potassium Chloride Carbon Dioxide BUN Creatinine Glucose POC Glucose 147 H 113 H 64 L Lactic Acid Calcium Phosphorus Magnesium Iron TIBC Transferrin Total Bilirubin Direct Bilirubin AST ALT Alkaline Phosphatase Lactate Dehydrogenase CK-MB (CK-2) Troponin T C-Reactive Protein Total Protein Albumin Triglycerides Cholesterol HDL Cholesterol Vitamin B12 Urine Creatinine Urine Total Protein Heparin-induced Plt Ab Hep Bs Antibody, Quant Crossmatch 12/05/16 12/05/16 12/05/16 21:34 22:08 23:19 WBC RBC Hgb Hct MCV MCHC RDW Plt Count Lymph % (Auto) Starr % (Auto) Starr # Baso # Seg Neutrophils % Seg Neuts % (Manual) Lymphocytes % (Manual) Monocytes % (Manual) Nucleated RBC % Seg Neutrophils # Seg Neutrophils # Man Lymphocytes # (Manual) Monocytes # (Manual) Percent Retic Haptoglobin PT INR Fibrinogen D-Dimer POC ABG pH 7.303 L POC ABG pCO2 18.3 L POC ABG pO2 73 L Sodium Potassium Chloride Carbon Dioxide BUN Creatinine Glucose POC Glucose 141 H 200 H Lactic Acid Calcium Phosphorus Magnesium Iron TIBC Transferrin Total Bilirubin Direct Bilirubin AST ALT Alkaline Phosphatase Lactate Dehydrogenase CK-MB (CK-2) Troponin T C-Reactive Protein Total Protein Albumin Triglycerides Cholesterol HDL Cholesterol Vitamin B12 Urine Creatinine Urine Total Protein Heparin-induced Plt Ab Hep Bs Antibody, Quant Crossmatch 12/06/16 12/06/16 12/06/16 00:01 01:09 02:00 WBC RBC Hgb Hct MCV MCHC RDW Plt Count Lymph % (Auto) Starr % (Auto) Starr # Baso # Seg Neutrophils % Seg Neuts % (Manual) Lymphocytes % (Manual) Monocytes % (Manual) Nucleated RBC % Seg Neutrophils # Seg Neutrophils # Man Lymphocytes # (Manual) Monocytes # (Manual) Percent Retic Haptoglobin PT INR Fibrinogen D-Dimer POC ABG pH POC ABG pCO2 POC ABG pO2 Sodium Potassium Chloride Carbon Dioxide BUN Creatinine Glucose POC Glucose 211 H 116 H 57 L Lactic Acid Calcium Phosphorus Magnesium Iron TIBC Transferrin Total Bilirubin Direct Bilirubin AST ALT Alkaline Phosphatase Lactate Dehydrogenase CK-MB (CK-2) Troponin T C-Reactive Protein Total Protein Albumin Triglycerides Cholesterol HDL Cholesterol Vitamin B12 Urine Creatinine Urine Total Protein Heparin-induced Plt Ab Hep Bs Antibody, Quant Crossmatch 12/06/16 12/06/16 12/06/16 04:14 04:50 04:50 WBC RBC 2.68 L Hgb 7.6 L Hct 23.2 L MCV MCHC RDW 18.9 H Plt Count Lymph % (Auto) Starr % (Auto) Starr # Baso # Seg Neutrophils % Seg Neuts % (Manual) 32.0 L Lymphocytes % (Manual) Monocytes % (Manual) Nucleated RBC % 3.0 H Seg Neutrophils # Seg Neutrophils # Man Lymphocytes # (Manual) 0.9 L Monocytes # (Manual) Percent Retic Haptoglobin PT INR Fibrinogen D-Dimer POC ABG pH POC ABG pCO2 POC ABG pO2 Sodium Potassium 5.8 H D Chloride 111.5 H Carbon Dioxide 11 L BUN 52 H Creatinine 3.8 H Glucose 186 H POC Glucose 133 H Lactic Acid Calcium 6.5 L D Phosphorus 5.80 H Magnesium Iron TIBC Transferrin Total Bilirubin Direct Bilirubin AST ALT Alkaline Phosphatase Lactate Dehydrogenase CK-MB (CK-2) Troponin T C-Reactive Protein Total Protein Albumin Triglycerides Cholesterol HDL Cholesterol Vitamin B12 Urine Creatinine Urine Total Protein Heparin-induced Plt Ab Hep Bs Antibody, Quant Crossmatch 12/06/16 12/06/16 12/06/16 04:50 05:04 05:07 WBC RBC Hgb Hct MCV MCHC RDW Plt Count Lymph % (Auto) Starr % (Auto) Starr # Baso # Seg Neutrophils % Seg Neuts % (Manual) Lymphocytes % (Manual) Monocytes % (Manual) Nucleated RBC % Seg Neutrophils # Seg Neutrophils # Man Lymphocytes # (Manual) Monocytes # (Manual) Percent Retic Haptoglobin PT INR Fibrinogen D-Dimer POC ABG pH POC ABG pCO2 13.0 L POC ABG pO2 111 H Sodium Potassium Chloride Carbon Dioxide BUN Creatinine Glucose POC Glucose 127 H Lactic Acid 6.50 H* Calcium Phosphorus Magnesium Iron TIBC Transferrin Total Bilirubin Direct Bilirubin AST ALT Alkaline Phosphatase Lactate Dehydrogenase CK-MB (CK-2) Troponin T C-Reactive Protein Total Protein Albumin Triglycerides Cholesterol HDL Cholesterol Vitamin B12 Urine Creatinine Urine Total Protein Heparin-induced Plt Ab Hep Bs Antibody, Quant Crossmatch 12/06/16 12/06/16 12/06/16 06:10 06:54 07:46 WBC RBC Hgb Hct MCV MCHC RDW Plt Count Lymph % (Auto) Starr % (Auto) Starr # Baso # Seg Neutrophils % Seg Neuts % (Manual) Lymphocytes % (Manual) Monocytes % (Manual) Nucleated RBC % Seg Neutrophils # Seg Neutrophils # Man Lymphocytes # (Manual) Monocytes # (Manual) Percent Retic Haptoglobin PT INR Fibrinogen D-Dimer POC ABG pH POC ABG pCO2 POC ABG pO2 Sodium Potassium Chloride Carbon Dioxide BUN Creatinine Glucose POC Glucose 219 H 237 H 158 H Lactic Acid Calcium Phosphorus Magnesium Iron TIBC Transferrin Total Bilirubin Direct Bilirubin AST ALT Alkaline Phosphatase Lactate Dehydrogenase CK-MB (CK-2) Troponin T C-Reactive Protein Total Protein Albumin Triglycerides Cholesterol HDL Cholesterol Vitamin B12 Urine Creatinine Urine Total Protein Heparin-induced Plt Ab Hep Bs Antibody, Quant Crossmatch 12/06/16 12/06/16 12/06/16 08:55 10:27 11:58 WBC RBC Hgb Hct MCV MCHC RDW Plt Count Lymph % (Auto) Starr % (Auto) Starr # Baso # Seg Neutrophils % Seg Neuts % (Manual) Lymphocytes % (Manual) Monocytes % (Manual) Nucleated RBC % Seg Neutrophils # Seg Neutrophils # Man Lymphocytes # (Manual) Monocytes # (Manual) Percent Retic Haptoglobin PT INR Fibrinogen D-Dimer POC ABG pH POC ABG pCO2 POC ABG pO2 Sodium Potassium Chloride Carbon Dioxide BUN Creatinine Glucose POC Glucose 40 L 128 H 144 H Lactic Acid Calcium Phosphorus Magnesium Iron TIBC Transferrin Total Bilirubin Direct Bilirubin AST ALT Alkaline Phosphatase Lactate Dehydrogenase CK-MB (CK-2) Troponin T C-Reactive Protein Total Protein Albumin Triglycerides Cholesterol HDL Cholesterol Vitamin B12 Urine Creatinine Urine Total Protein Heparin-induced Plt Ab Hep Bs Antibody, Quant Crossmatch 12/06/16 12/06/16 12/06/16 18:14 19:00 19:06 WBC RBC Hgb Hct MCV MCHC RDW Plt Count Lymph % (Auto) Starr % (Auto) Starr # Baso # Seg Neutrophils % Seg Neuts % (Manual) Lymphocytes % (Manual) Monocytes % (Manual) Nucleated RBC % Seg Neutrophils # Seg Neutrophils # Man Lymphocytes # (Manual) Monocytes # (Manual) Percent Retic Haptoglobin PT INR Fibrinogen D-Dimer POC ABG pH POC ABG pCO2 POC ABG pO2 Sodium 149 H Potassium 5.6 H Chloride 115.9 H Carbon Dioxide 13 L BUN 56 H Creatinine 4.3 H Glucose 124 H POC Glucose 55 L 148 H Lactic Acid Calcium 6.0 L Phosphorus Magnesium Iron TIBC Transferrin Total Bilirubin Direct Bilirubin AST ALT Alkaline Phosphatase Lactate Dehydrogenase CK-MB (CK-2) Troponin T C-Reactive Protein Total Protein Albumin Triglycerides Cholesterol HDL Cholesterol Vitamin B12 Urine Creatinine Urine Total Protein Heparin-induced Plt Ab Hep Bs Antibody, Quant Crossmatch 12/06/16 12/06/16 12/07/16 21:24 21:51 02:32 WBC RBC Hgb Hct MCV MCHC RDW Plt Count Lymph % (Auto) Starr % (Auto) Starr # Baso # Seg Neutrophils % Seg Neuts % (Manual) Lymphocytes % (Manual) Monocytes % (Manual) Nucleated RBC % Seg Neutrophils # Seg Neutrophils # Man Lymphocytes # (Manual) Monocytes # (Manual) Percent Retic Haptoglobin PT INR Fibrinogen D-Dimer POC ABG pH POC ABG pCO2 17.0 L POC ABG pO2 142 H Sodium Potassium Chloride Carbon Dioxide BUN Creatinine Glucose POC Glucose 107 H 175 H Lactic Acid Calcium Phosphorus Magnesium Iron TIBC Transferrin Total Bilirubin Direct Bilirubin AST ALT Alkaline Phosphatase Lactate Dehydrogenase CK-MB (CK-2) Troponin T C-Reactive Protein Total Protein Albumin Triglycerides Cholesterol HDL Cholesterol Vitamin B12 Urine Creatinine Urine Total Protein Heparin-induced Plt Ab Hep Bs Antibody, Quant Crossmatch 12/07/16 12/07/16 12/07/16 05:01 05:25 06:00 WBC RBC 2.52 L Hgb 7.1 L Hct 22.1 L MCV MCHC RDW 19.3 H Plt Count 90 L Lymph % (Auto) Starr % (Auto) Starr # Baso # Seg Neutrophils % Seg Neuts % (Manual) 75.0 H Lymphocytes % (Manual) 11.0 L Monocytes % (Manual) Nucleated RBC % Seg Neutrophils # Seg Neutrophils # Man Lymphocytes # (Manual) 0.7 L Monocytes # (Manual) Percent Retic Haptoglobin PT INR Fibrinogen D-Dimer POC ABG pH 7.300 L POC ABG pCO2 17.1 L POC ABG pO2 140 H Sodium Potassium Chloride Carbon Dioxide BUN Creatinine Glucose POC Glucose 279 H Lactic Acid Calcium Phosphorus Magnesium Iron TIBC Transferrin Total Bilirubin Direct Bilirubin AST ALT Alkaline Phosphatase Lactate Dehydrogenase CK-MB (CK-2) Troponin T C-Reactive Protein Total Protein Albumin Triglycerides Cholesterol HDL Cholesterol Vitamin B12 Urine Creatinine Urine Total Protein Heparin-induced Plt Ab Hep Bs Antibody, Quant Crossmatch 12/07/16 12/07/16 12/07/16 06:00 06:00 07:30 WBC RBC Hgb Hct MCV MCHC RDW Plt Count Lymph % (Auto) Starr % (Auto) Starr # Baso # Seg Neutrophils % Seg Neuts % (Manual) Lymphocytes % (Manual) Monocytes % (Manual) Nucleated RBC % Seg Neutrophils # Seg Neutrophils # Man Lymphocytes # (Manual) Monocytes # (Manual) Percent Retic Haptoglobin PT INR Fibrinogen D-Dimer POC ABG pH POC ABG pCO2 POC ABG pO2 Sodium Potassium Chloride Carbon Dioxide BUN Creatinine Glucose POC Glucose Lactic Acid 6.90 H* Calcium Phosphorus 6.80 H Magnesium Iron TIBC Transferrin Total Bilirubin Direct Bilirubin AST ALT Alkaline Phosphatase Lactate Dehydrogenase CK-MB (CK-2) Troponin T C-Reactive Protein 39.40 H Total Protein Albumin Triglycerides Cholesterol HDL Cholesterol Vitamin B12 Urine Creatinine Urine Total Protein Heparin-induced Plt Ab Hep Bs Antibody, Quant Crossmatch 12/07/16 12/07/16 12/07/16 08:40 10:53 14:31 WBC RBC Hgb Hct MCV MCHC RDW Plt Count Lymph % (Auto) Starr % (Auto) Starr # Baso # Seg Neutrophils % Seg Neuts % (Manual) Lymphocytes % (Manual) Monocytes % (Manual) Nucleated RBC % Seg Neutrophils # Seg Neutrophils # Man Lymphocytes # (Manual) Monocytes # (Manual) Percent Retic Haptoglobin PT INR Fibrinogen D-Dimer POC ABG pH POC ABG pCO2 POC ABG pO2 Sodium Potassium 7.0 H* D Chloride 112.4 H Carbon Dioxide 8 L* BUN 61 H Creatinine 5.1 H Glucose 213 H POC Glucose 353 H 52 L Lactic Acid Calcium 5.8 L* Phosphorus Magnesium Iron TIBC Transferrin Total Bilirubin Direct Bilirubin AST ALT Alkaline Phosphatase Lactate Dehydrogenase CK-MB (CK-2) Troponin T C-Reactive Protein Total Protein Albumin Triglycerides Cholesterol HDL Cholesterol Vitamin B12 Urine Creatinine Urine Total Protein Heparin-induced Plt Ab Hep Bs Antibody, Quant Crossmatch 12/07/16 12/07/16 12/07/16 14:45 15:33 16:22 WBC RBC Hgb Hct MCV MCHC RDW Plt Count Lymph % (Auto) Starr % (Auto) Starr # Baso # Seg Neutrophils % Seg Neuts % (Manual) Lymphocytes % (Manual) Monocytes % (Manual) Nucleated RBC % Seg Neutrophils # Seg Neutrophils # Man Lymphocytes # (Manual) Monocytes # (Manual) Percent Retic Haptoglobin PT 17.5 H INR 1.44 H Fibrinogen D-Dimer POC ABG pH POC ABG pCO2 POC ABG pO2 Sodium Potassium Chloride Carbon Dioxide BUN Creatinine Glucose POC Glucose < 40 L 118 H Lactic Acid Calcium Phosphorus Magnesium Iron TIBC Transferrin Total Bilirubin Direct Bilirubin AST ALT Alkaline Phosphatase Lactate Dehydrogenase CK-MB (CK-2) Troponin T C-Reactive Protein Total Protein Albumin Triglycerides Cholesterol HDL Cholesterol Vitamin B12 Urine Creatinine Urine Total Protein Heparin-induced Plt Ab Hep Bs Antibody, Quant Crossmatch 12/07/16 12/07/16 12/07/16 21:35 21:35 21:58 WBC RBC Hgb Hct MCV MCHC RDW Plt Count Lymph % (Auto) Starr % (Auto) Starr # Baso # Seg Neutrophils % Seg Neuts % (Manual) Lymphocytes % (Manual) Monocytes % (Manual) Nucleated RBC % Seg Neutrophils # Seg Neutrophils # Man Lymphocytes # (Manual) Monocytes # (Manual) Percent Retic Haptoglobin PT INR Fibrinogen D-Dimer POC ABG pH POC ABG pCO2 POC ABG pO2 Sodium 150 H Potassium 3.3 L D Chloride 111.4 H Carbon Dioxide 21 L D BUN 22 H Creatinine 2.6 H Glucose 23 L* POC Glucose < 40 L Lactic Acid Calcium Phosphorus Magnesium Iron TIBC Transferrin Total Bilirubin 1.40 H Direct Bilirubin 0.9 H AST 94 H ALT 142 H Alkaline Phosphatase 249 H Lactate Dehydrogenase CK-MB (CK-2) Troponin T C-Reactive Protein Total Protein 4.6 L D Albumin 2.1 L Triglycerides Cholesterol HDL Cholesterol Vitamin B12 Urine Creatinine Urine Total Protein Heparin-induced Plt Ab Hep Bs Antibody, Quant Crossmatch 12/07/16 12/08/16 12/08/16 23:31 04:43 04:50 WBC RBC 2.35 L Hgb 6.6 L Hct 20.1 L MCV MCHC RDW 17.8 H Plt Count 48 L Lymph % (Auto) Starr % (Auto) Starr # Baso # Seg Neutrophils % Seg Neuts % (Manual) Lymphocytes % (Manual) Monocytes % (Manual) Nucleated RBC % Seg Neutrophils # Seg Neutrophils # Man Lymphocytes # (Manual) 0.9 L Monocytes # (Manual) Percent Retic Haptoglobin PT INR Fibrinogen D-Dimer POC ABG pH 7.586 H POC ABG pCO2 17.7 L POC ABG pO2 150 H Sodium Potassium Chloride Carbon Dioxide BUN Creatinine Glucose POC Glucose 42 L Lactic Acid Calcium Phosphorus Magnesium Iron TIBC Transferrin Total Bilirubin Direct Bilirubin AST ALT Alkaline Phosphatase Lactate Dehydrogenase CK-MB (CK-2) Troponin T C-Reactive Protein Total Protein Albumin Triglycerides Cholesterol HDL Cholesterol Vitamin B12 Urine Creatinine Urine Total Protein Heparin-induced Plt Ab Hep Bs Antibody, Quant Crossmatch 12/08/16 12/08/16 12/08/16 04:50 04:59 06:54 WBC RBC Hgb Hct MCV MCHC RDW Plt Count Lymph % (Auto) Starr % (Auto) Starr # Baso # Seg Neutrophils % Seg Neuts % (Manual) Lymphocytes % (Manual) Monocytes % (Manual) Nucleated RBC % Seg Neutrophils # Seg Neutrophils # Man Lymphocytes # (Manual) Monocytes # (Manual) Percent Retic Haptoglobin PT INR Fibrinogen D-Dimer POC ABG pH POC ABG pCO2 POC ABG pO2 Sodium 149 H Potassium 3.2 L Chloride 111.8 H Carbon Dioxide 17 L BUN 26 H Creatinine 3.4 H Glucose 163 H POC Glucose 204 H 203 H Lactic Acid Calcium 7.7 L Phosphorus 2.40 L D Magnesium Iron TIBC Transferrin Total Bilirubin Direct Bilirubin AST ALT Alkaline Phosphatase Lactate Dehydrogenase CK-MB (CK-2) Troponin T C-Reactive Protein Total Protein Albumin Triglycerides Cholesterol HDL Cholesterol Vitamin B12 Urine Creatinine Urine Total Protein Heparin-induced Plt Ab Hep Bs Antibody, Quant Crossmatch 12/08/16 12/08/16 12/08/16 08:04 08:46 08:46 WBC RBC Hgb Hct MCV MCHC RDW Plt Count Lymph % (Auto) Starr % (Auto) Starr # Baso # Seg Neutrophils % Seg Neuts % (Manual) Lymphocytes % (Manual) Monocytes % (Manual) Nucleated RBC % Seg Neutrophils # Seg Neutrophils # Man Lymphocytes # (Manual) Monocytes # (Manual) Percent Retic Haptoglobin PT INR Fibrinogen D-Dimer POC ABG pH POC ABG pCO2 POC ABG pO2 Sodium 147 H Potassium 2.9 L* Chloride 110.6 H Carbon Dioxide 17 L BUN 28 H Creatinine 3.6 H Glucose 127 H POC Glucose 205 H Lactic Acid Calcium 7.3 L Phosphorus Magnesium Iron TIBC Transferrin Total Bilirubin Direct Bilirubin AST ALT Alkaline Phosphatase Lactate Dehydrogenase CK-MB (CK-2) Troponin T C-Reactive Protein Total Protein Albumin Triglycerides Cholesterol HDL Cholesterol Vitamin B12 Urine Creatinine Urine Total Protein Heparin-induced Plt Ab Hep Bs Antibody, Quant Crossmatch See Detail 12/08/16 12/08/16 12/08/16 12:36 19:00 19:00 WBC RBC Hgb Hct MCV MCHC RDW Plt Count Lymph % (Auto) Starr % (Auto) Starr # Baso # Seg Neutrophils % Seg Neuts % (Manual) Lymphocytes % (Manual) Monocytes % (Manual) Nucleated RBC % Seg Neutrophils # Seg Neutrophils # Man Lymphocytes # (Manual) Monocytes # (Manual) Percent Retic Haptoglobin PT 15.3 H INR 1.22 H Fibrinogen 563 H D-Dimer 5507.36 H POC ABG pH POC ABG pCO2 POC ABG pO2 Sodium Potassium Chloride Carbon Dioxide 21 L BUN Creatinine 1.7 H D Glucose 155 H POC Glucose 181 H Lactic Acid Calcium Phosphorus Magnesium Iron TIBC Transferrin Total Bilirubin Direct Bilirubin AST ALT Alkaline Phosphatase Lactate Dehydrogenase CK-MB (CK-2) Troponin T C-Reactive Protein Total Protein Albumin Triglycerides Cholesterol HDL Cholesterol Vitamin B12 Urine Creatinine Urine Total Protein Heparin-induced Plt Ab Hep Bs Antibody, Quant Crossmatch 12/08/16 12/08/16 12/08/16 19:00 19:00 21:30 WBC RBC 2.76 L Hgb 7.8 L Hct 23.7 L MCV MCHC RDW 17.0 H Plt Count 38 L Lymph % (Auto) Starr % (Auto) Starr # Baso # Seg Neutrophils % Seg Neuts % (Manual) Lymphocytes % (Manual) Monocytes % (Manual) Nucleated RBC % Seg Neutrophils # Seg Neutrophils # Man Lymphocytes # (Manual) Monocytes # (Manual) Percent Retic Haptoglobin 271 H PT INR Fibrinogen D-Dimer POC ABG pH POC ABG pCO2 POC ABG pO2 Sodium Potassium Chloride Carbon Dioxide BUN Creatinine Glucose POC Glucose Lactic Acid Calcium Phosphorus Magnesium Iron TIBC Transferrin Total Bilirubin Direct Bilirubin AST ALT Alkaline Phosphatase Lactate Dehydrogenase 382 H CK-MB (CK-2) Troponin T C-Reactive Protein Total Protein Albumin Triglycerides Cholesterol HDL Cholesterol Vitamin B12 Urine Creatinine Urine Total Protein Heparin-induced Plt Ab Hep Bs Antibody, Quant Crossmatch 12/08/16 12/08/16 12/09/16 23:32 23:44 05:22 WBC RBC Hgb Hct MCV MCHC RDW Plt Count Lymph % (Auto) Starr % (Auto) Starr # Baso # Seg Neutrophils % Seg Neuts % (Manual) Lymphocytes % (Manual) Monocytes % (Manual) Nucleated RBC % Seg Neutrophils # Seg Neutrophils # Man Lymphocytes # (Manual) Monocytes # (Manual) Percent Retic Haptoglobin PT INR Fibrinogen D-Dimer POC ABG pH 7.498 H POC ABG pCO2 25.2 L POC ABG pO2 137 H Sodium Potassium Chloride Carbon Dioxide BUN Creatinine Glucose POC Glucose 311 H 113 H Lactic Acid Calcium Phosphorus Magnesium Iron TIBC Transferrin Total Bilirubin Direct Bilirubin AST ALT Alkaline Phosphatase Lactate Dehydrogenase CK-MB (CK-2) Troponin T C-Reactive Protein Total Protein Albumin Triglycerides Cholesterol HDL Cholesterol Vitamin B12 Urine Creatinine Urine Total Protein Heparin-induced Plt Ab Hep Bs Antibody, Quant Crossmatch 12/09/16 12/09/16 12/09/16 06:00 11:29 11:59 WBC RBC Hgb Hct MCV MCHC RDW Plt Count Lymph % (Auto) Starr % (Auto) Starr # Baso # Seg Neutrophils % Seg Neuts % (Manual) Lymphocytes % (Manual) Monocytes % (Manual) Nucleated RBC % Seg Neutrophils # Seg Neutrophils # Man Lymphocytes # (Manual) Monocytes # (Manual) Percent Retic 0.23 L Haptoglobin PT INR Fibrinogen D-Dimer POC ABG pH POC ABG pCO2 POC ABG pO2 Sodium Potassium Chloride 110.2 H Carbon Dioxide 18 L BUN 19 H Creatinine 2.5 H Glucose 105 H POC Glucose 254 H Lactic Acid Calcium Phosphorus 2.00 L Magnesium Iron TIBC Transferrin Total Bilirubin Direct Bilirubin AST ALT Alkaline Phosphatase Lactate Dehydrogenase CK-MB (CK-2) Troponin T C-Reactive Protein Total Protein Albumin Triglycerides Cholesterol HDL Cholesterol Vitamin B12 Urine Creatinine Urine Total Protein Heparin-induced Plt Ab Hep Bs Antibody, Quant Crossmatch 12/09/16 12/09/16 12/09/16 12:02 13:27 13:27 WBC RBC Hgb Hct MCV MCHC RDW Plt Count Lymph % (Auto) Starr % (Auto) Starr # Baso # Seg Neutrophils % Seg Neuts % (Manual) Lymphocytes % (Manual) Monocytes % (Manual) Nucleated RBC % Seg Neutrophils # Seg Neutrophils # Man Lymphocytes # (Manual) Monocytes # (Manual) Percent Retic Haptoglobin PT INR Fibrinogen D-Dimer POC ABG pH 7.326 L POC ABG pCO2 POC ABG pO2 115 H Sodium Potassium Chloride Carbon Dioxide BUN Creatinine Glucose POC Glucose Lactic Acid Calcium Phosphorus Magnesium Iron 15 L TIBC 134 L Transferrin Total Bilirubin Direct Bilirubin AST ALT Alkaline Phosphatase Lactate Dehydrogenase CK-MB (CK-2) Troponin T C-Reactive Protein Total Protein Albumin Triglycerides Cholesterol HDL Cholesterol Vitamin B12 > 2000 H Urine Creatinine Urine Total Protein Heparin-induced Plt Ab Hep Bs Antibody, Quant Crossmatch 12/09/16 12/09/16 12/09/16 13:27 13:27 16:28 WBC RBC Hgb Hct MCV MCHC RDW Plt Count Lymph % (Auto) Starr % (Auto) Starr # Baso # Seg Neutrophils % Seg Neuts % (Manual) Lymphocytes % (Manual) Monocytes % (Manual) Nucleated RBC % Seg Neutrophils # Seg Neutrophils # Man Lymphocytes # (Manual) Monocytes # (Manual) Percent Retic Haptoglobin PT INR Fibrinogen D-Dimer POC ABG pH POC ABG pCO2 POC ABG pO2 Sodium Potassium Chloride Carbon Dioxide BUN Creatinine Glucose POC Glucose 199 H Lactic Acid Calcium Phosphorus Magnesium Iron TIBC Transferrin Total Bilirubin Direct Bilirubin AST ALT Alkaline Phosphatase Lactate Dehydrogenase CK-MB (CK-2) Troponin T C-Reactive Protein Total Protein Albumin Triglycerides Cholesterol HDL Cholesterol Vitamin B12 Urine Creatinine Urine Total Protein Heparin-induced Plt Ab Weak positive H Hep Bs Antibody, Quant <5 L Crossmatch 12/09/16 12/09/16 12/10/16 23:27 Unknown 05:36 WBC 11.3 H RBC 2.92 L Hgb 8.4 L Hct 25.3 L MCV MCHC RDW 16.9 H Plt Count 31 L Lymph % (Auto) Starr % (Auto) Starr # Baso # Seg Neutrophils % Seg Neuts % (Manual) Lymphocytes % (Manual) Monocytes % (Manual) Nucleated RBC % Seg Neutrophils # Seg Neutrophils # Man Lymphocytes # (Manual) Monocytes # (Manual) Percent Retic Haptoglobin PT INR Fibrinogen D-Dimer POC ABG pH POC ABG pCO2 POC ABG pO2 Sodium Potassium Chloride Carbon Dioxide BUN Creatinine Glucose POC Glucose 247 H 248 H Lactic Acid Calcium Phosphorus Magnesium Iron TIBC Transferrin Total Bilirubin Direct Bilirubin AST ALT Alkaline Phosphatase Lactate Dehydrogenase CK-MB (CK-2) Troponin T C-Reactive Protein Total Protein Albumin Triglycerides Cholesterol HDL Cholesterol Vitamin B12 Urine Creatinine Urine Total Protein Heparin-induced Plt Ab Hep Bs Antibody, Quant Crossmatch 12/10/16 12/10/16 12/10/16 09:55 09:55 11:49 WBC 21.2 H RBC 3.37 L Hgb 9.6 L Hct 29.5 L MCV MCHC RDW 16.3 H Plt Count 102 L D Lymph % (Auto) Starr % (Auto) Starr # Baso # Seg Neutrophils % Seg Neuts % (Manual) Lymphocytes % (Manual) Monocytes % (Manual) Nucleated RBC % Seg Neutrophils # Seg Neutrophils # Man Lymphocytes # (Manual) Monocytes # (Manual) Percent Retic Haptoglobin PT INR Fibrinogen D-Dimer POC ABG pH POC ABG pCO2 POC ABG pO2 Sodium Potassium Chloride 107.4 H Carbon Dioxide 21 L BUN 37 H Creatinine 4.2 H D Glucose 174 H POC Glucose 265 H Lactic Acid Calcium Phosphorus Magnesium Iron TIBC Transferrin Total Bilirubin Direct Bilirubin AST ALT Alkaline Phosphatase Lactate Dehydrogenase CK-MB (CK-2) Troponin T C-Reactive Protein Total Protein Albumin Triglycerides Cholesterol HDL Cholesterol Vitamin B12 Urine Creatinine Urine Total Protein Heparin-induced Plt Ab Hep Bs Antibody, Quant Crossmatch 12/10/16 12/10/16 12/11/16 17:56 23:44 04:30 WBC 23.5 H RBC 3.46 L Hgb 9.7 L Hct 30.1 L MCV MCHC RDW 16.4 H Plt Count 115 L Lymph % (Auto) Starr % (Auto) Starr # Baso # Seg Neutrophils % Seg Neuts % (Manual) 84.0 H Lymphocytes % (Manual) 5.0 L Monocytes % (Manual) 10.0 H Nucleated RBC % 1.0 H Seg Neutrophils # Seg Neutrophils # Man 19.7 H Lymphocytes # (Manual) Monocytes # (Manual) 2.4 H Percent Retic Haptoglobin PT INR Fibrinogen D-Dimer POC ABG pH POC ABG pCO2 POC ABG pO2 Sodium Potassium Chloride Carbon Dioxide BUN Creatinine Glucose POC Glucose 118 H 378 H Lactic Acid Calcium Phosphorus Magnesium Iron TIBC Transferrin Total Bilirubin Direct Bilirubin AST ALT Alkaline Phosphatase Lactate Dehydrogenase CK-MB (CK-2) Troponin T C-Reactive Protein Total Protein Albumin Triglycerides Cholesterol HDL Cholesterol Vitamin B12 Urine Creatinine Urine Total Protein Heparin-induced Plt Ab Hep Bs Antibody, Quant Crossmatch 12/11/16 12/11/16 12/11/16 04:30 05:33 12:48 WBC RBC Hgb Hct MCV MCHC RDW Plt Count Lymph % (Auto) Starr % (Auto) Starr # Baso # Seg Neutrophils % Seg Neuts % (Manual) Lymphocytes % (Manual) Monocytes % (Manual) Nucleated RBC % Seg Neutrophils # Seg Neutrophils # Man Lymphocytes # (Manual) Monocytes # (Manual) Percent Retic Haptoglobin PT INR Fibrinogen D-Dimer POC ABG pH POC ABG pCO2 POC ABG pO2 Sodium Potassium Chloride Carbon Dioxide 21 L BUN 50 H Creatinine 4.8 H Glucose 303 H POC Glucose 335 H 325 H Lactic Acid Calcium 8.2 L Phosphorus Magnesium Iron TIBC Transferrin Total Bilirubin Direct Bilirubin AST ALT Alkaline Phosphatase Lactate Dehydrogenase CK-MB (CK-2) Troponin T C-Reactive Protein Total Protein Albumin Triglycerides Cholesterol HDL Cholesterol Vitamin B12 Urine Creatinine Urine Total Protein Heparin-induced Plt Ab Hep Bs Antibody, Quant Crossmatch 12/11/16 12/11/16 12/12/16 17:49 21:16 00:49 WBC RBC Hgb Hct MCV MCHC RDW Plt Count Lymph % (Auto) Starr % (Auto) Starr # Baso # Seg Neutrophils % Seg Neuts % (Manual) Lymphocytes % (Manual) Monocytes % (Manual) Nucleated RBC % Seg Neutrophils # Seg Neutrophils # Man Lymphocytes # (Manual) Monocytes # (Manual) Percent Retic Haptoglobin PT INR Fibrinogen D-Dimer POC ABG pH POC ABG pCO2 POC ABG pO2 Sodium Potassium Chloride Carbon Dioxide BUN Creatinine Glucose POC Glucose 368 H 162 H 225 H Lactic Acid Calcium Phosphorus Magnesium Iron TIBC Transferrin Total Bilirubin Direct Bilirubin AST ALT Alkaline Phosphatase Lactate Dehydrogenase CK-MB (CK-2) Troponin T C-Reactive Protein Total Protein Albumin Triglycerides Cholesterol HDL Cholesterol Vitamin B12 Urine Creatinine Urine Total Protein Heparin-induced Plt Ab Hep Bs Antibody, Quant Crossmatch 12/12/16 12/12/16 12/12/16 06:09 07:52 08:18 WBC 24.1 H RBC 3.16 L Hgb 9.0 L Hct 29.4 L MCV MCHC RDW 16.6 H Plt Count 96 L Lymph % (Auto) Starr % (Auto) Starr # Baso # Seg Neutrophils % Seg Neuts % (Manual) 75.0 H Lymphocytes % (Manual) Monocytes % (Manual) Nucleated RBC % Seg Neutrophils # Seg Neutrophils # Man 18.1 H Lymphocytes # (Manual) Monocytes # (Manual) 1.4 H Percent Retic Haptoglobin PT INR Fibrinogen D-Dimer POC ABG pH POC ABG pCO2 POC ABG pO2 Sodium Potassium Chloride Carbon Dioxide BUN Creatinine Glucose POC Glucose 428 H 418 H Lactic Acid Calcium Phosphorus Magnesium Iron TIBC Transferrin Total Bilirubin Direct Bilirubin AST ALT Alkaline Phosphatase Lactate Dehydrogenase CK-MB (CK-2) Troponin T C-Reactive Protein Total Protein Albumin Triglycerides Cholesterol HDL Cholesterol Vitamin B12 Urine Creatinine Urine Total Protein Heparin-induced Plt Ab Hep Bs Antibody, Quant Crossmatch 12/12/16 12/12/16 12/12/16 08:18 11:31 17:03 WBC RBC Hgb Hct MCV MCHC RDW Plt Count Lymph % (Auto) Starr % (Auto) Starr # Baso # Seg Neutrophils % Seg Neuts % (Manual) Lymphocytes % (Manual) Monocytes % (Manual) Nucleated RBC % Seg Neutrophils # Seg Neutrophils # Man Lymphocytes # (Manual) Monocytes # (Manual) Percent Retic Haptoglobin PT INR Fibrinogen D-Dimer POC ABG pH POC ABG pCO2 POC ABG pO2 Sodium Potassium Chloride Carbon Dioxide 12 L D BUN 41 H Creatinine 4.5 H Glucose 369 H POC Glucose 212 H 422 H Lactic Acid Calcium Phosphorus Magnesium Iron TIBC Transferrin Total Bilirubin Direct Bilirubin AST ALT Alkaline Phosphatase Lactate Dehydrogenase CK-MB (CK-2) Troponin T C-Reactive Protein Total Protein Albumin Triglycerides Cholesterol HDL Cholesterol Vitamin B12 Urine Creatinine Urine Total Protein Heparin-induced Plt Ab Hep Bs Antibody, Quant Crossmatch 12/12/16 12/13/16 12/13/16 21:35 07:49 07:49 WBC 24.0 H RBC 2.90 L Hgb 8.3 L Hct 25.8 L MCV MCHC RDW 15.5 H Plt Count 120 L Lymph % (Auto) Starr % (Auto) Starr # Baso # Seg Neutrophils % Seg Neuts % (Manual) 89.0 H Lymphocytes % (Manual) 7.0 L Monocytes % (Manual) Nucleated RBC % Seg Neutrophils # Seg Neutrophils # Man 21.4 H Lymphocytes # (Manual) Monocytes # (Manual) Percent Retic Haptoglobin PT INR Fibrinogen D-Dimer POC ABG pH POC ABG pCO2 POC ABG pO2 Sodium Potassium 3.2 L Chloride Carbon Dioxide BUN 21 H Creatinine 3.0 H Glucose 21 L* POC Glucose 185 H Lactic Acid Calcium Phosphorus Magnesium Iron TIBC Transferrin Total Bilirubin Direct Bilirubin AST ALT Alkaline Phosphatase Lactate Dehydrogenase CK-MB (CK-2) Troponin T C-Reactive Protein Total Protein Albumin Triglycerides Cholesterol HDL Cholesterol Vitamin B12 Urine Creatinine Urine Total Protein Heparin-induced Plt Ab Hep Bs Antibody, Quant Crossmatch 12/13/16 12/13/16 12/13/16 09:57 11:02 16:52 WBC RBC Hgb Hct MCV MCHC RDW Plt Count Lymph % (Auto) Starr % (Auto) Starr # Baso # Seg Neutrophils % Seg Neuts % (Manual) Lymphocytes % (Manual) Monocytes % (Manual) Nucleated RBC % Seg Neutrophils # Seg Neutrophils # Man Lymphocytes # (Manual) Monocytes # (Manual) Percent Retic Haptoglobin PT INR Fibrinogen D-Dimer POC ABG pH POC ABG pCO2 POC ABG pO2 Sodium Potassium Chloride Carbon Dioxide BUN Creatinine Glucose POC Glucose < 40 L 231 H 312 H Lactic Acid Calcium Phosphorus Magnesium Iron TIBC Transferrin Total Bilirubin Direct Bilirubin AST ALT Alkaline Phosphatase Lactate Dehydrogenase CK-MB (CK-2) Troponin T C-Reactive Protein Total Protein Albumin Triglycerides Cholesterol HDL Cholesterol Vitamin B12 Urine Creatinine Urine Total Protein Heparin-induced Plt Ab Hep Bs Antibody, Quant Crossmatch 12/13/16 12/14/16 12/14/16 21:32 07:07 07:07 WBC 16.7 H RBC 2.80 L Hgb 7.9 L Hct 24.7 L MCV MCHC RDW 15.4 H Plt Count 131 L Lymph % (Auto) 13.1 L Starr % (Auto) Starr # 1.2 H Baso # Seg Neutrophils % 78.3 H Seg Neuts % (Manual) Lymphocytes % (Manual) Monocytes % (Manual) Nucleated RBC % Seg Neutrophils # 13.1 H Seg Neutrophils # Man Lymphocytes # (Manual) Monocytes # (Manual) Percent Retic Haptoglobin PT INR Fibrinogen D-Dimer POC ABG pH POC ABG pCO2 POC ABG pO2 Sodium Potassium 3.5 L Chloride Carbon Dioxide BUN 30 H Creatinine 4.6 H D Glucose 181 H POC Glucose 275 H Lactic Acid Calcium 7.7 L Phosphorus Magnesium Iron TIBC Transferrin Total Bilirubin Direct Bilirubin AST ALT Alkaline Phosphatase Lactate Dehydrogenase CK-MB (CK-2) Troponin T C-Reactive Protein Total Protein Albumin Triglycerides Cholesterol HDL Cholesterol Vitamin B12 Urine Creatinine Urine Total Protein Heparin-induced Plt Ab Hep Bs Antibody, Quant Crossmatch 12/14/16 12/14/16 12/14/16 07:46 11:35 16:24 WBC RBC Hgb Hct MCV MCHC RDW Plt Count Lymph % (Auto) Starr % (Auto) Starr # Baso # Seg Neutrophils % Seg Neuts % (Manual) Lymphocytes % (Manual) Monocytes % (Manual) Nucleated RBC % Seg Neutrophils # Seg Neutrophils # Man Lymphocytes # (Manual) Monocytes # (Manual) Percent Retic Haptoglobin PT INR Fibrinogen D-Dimer POC ABG pH POC ABG pCO2 POC ABG pO2 Sodium Potassium Chloride Carbon Dioxide BUN Creatinine Glucose POC Glucose 189 H 254 H 466 H Lactic Acid Calcium Phosphorus Magnesium Iron TIBC Transferrin Total Bilirubin Direct Bilirubin AST ALT Alkaline Phosphatase Lactate Dehydrogenase CK-MB (CK-2) Troponin T C-Reactive Protein Total Protein Albumin Triglycerides Cholesterol HDL Cholesterol Vitamin B12 Urine Creatinine Urine Total Protein Heparin-induced Plt Ab Hep Bs Antibody, Quant Crossmatch 12/14/16 12/15/16 12/15/16 20:57 06:27 07:46 WBC RBC Hgb Hct MCV MCHC RDW Plt Count Lymph % (Auto) Starr % (Auto) Starr # Baso # Seg Neutrophils % Seg Neuts % (Manual) Lymphocytes % (Manual) Monocytes % (Manual) Nucleated RBC % Seg Neutrophils # Seg Neutrophils # Man Lymphocytes # (Manual) Monocytes # (Manual) Percent Retic Haptoglobin PT INR Fibrinogen D-Dimer POC ABG pH POC ABG pCO2 POC ABG pO2 Sodium Potassium Chloride Carbon Dioxide BUN Creatinine Glucose POC Glucose 301 H 183 H 231 H Lactic Acid Calcium Phosphorus Magnesium Iron TIBC Transferrin Total Bilirubin Direct Bilirubin AST ALT Alkaline Phosphatase Lactate Dehydrogenase CK-MB (CK-2) Troponin T C-Reactive Protein Total Protein Albumin Triglycerides Cholesterol HDL Cholesterol Vitamin B12 Urine Creatinine Urine Total Protein Heparin-induced Plt Ab Hep Bs Antibody, Quant Crossmatch 12/15/16 12/15/16 12/15/16 11:38 15:34 20:51 WBC RBC Hgb Hct MCV MCHC RDW Plt Count Lymph % (Auto) Starr % (Auto) Starr # Baso # Seg Neutrophils % Seg Neuts % (Manual) Lymphocytes % (Manual) Monocytes % (Manual) Nucleated RBC % Seg Neutrophils # Seg Neutrophils # Man Lymphocytes # (Manual) Monocytes # (Manual) Percent Retic Haptoglobin PT INR Fibrinogen D-Dimer POC ABG pH POC ABG pCO2 POC ABG pO2 Sodium Potassium Chloride Carbon Dioxide BUN Creatinine Glucose POC Glucose 375 H 313 H 274 H Lactic Acid Calcium Phosphorus Magnesium Iron TIBC Transferrin Total Bilirubin Direct Bilirubin AST ALT Alkaline Phosphatase Lactate Dehydrogenase CK-MB (CK-2) Troponin T C-Reactive Protein Total Protein Albumin Triglycerides Cholesterol HDL Cholesterol Vitamin B12 Urine Creatinine Urine Total Protein Heparin-induced Plt Ab Hep Bs Antibody, Quant Crossmatch 12/16/16 12/16/16 12/16/16 08:26 09:12 17:13 WBC RBC Hgb Hct MCV MCHC RDW Plt Count Lymph % (Auto) Starr % (Auto) Starr # Baso # Seg Neutrophils % Seg Neuts % (Manual) Lymphocytes % (Manual) Monocytes % (Manual) Nucleated RBC % Seg Neutrophils # Seg Neutrophils # Man Lymphocytes # (Manual) Monocytes # (Manual) Percent Retic Haptoglobin PT INR Fibrinogen D-Dimer POC ABG pH POC ABG pCO2 POC ABG pO2 Sodium Potassium Chloride Carbon Dioxide BUN Creatinine Glucose POC Glucose 59 L 127 H > 500 H Lactic Acid Calcium Phosphorus Magnesium Iron TIBC Transferrin Total Bilirubin Direct Bilirubin AST ALT Alkaline Phosphatase Lactate Dehydrogenase CK-MB (CK-2) Troponin T C-Reactive Protein Total Protein Albumin Triglycerides Cholesterol HDL Cholesterol Vitamin B12 Urine Creatinine Urine Total Protein Heparin-induced Plt Ab Hep Bs Antibody, Quant Crossmatch 12/16/16 12/16/16 12/16/16 22:59 Unknown Unknown WBC 17.2 H RBC 2.83 L Hgb 7.9 L Hct 24.4 L MCV MCHC RDW Plt Count Lymph % (Auto) 9.2 L Starr % (Auto) Starr # 0.9 H Baso # Seg Neutrophils % 84.1 H Seg Neuts % (Manual) Lymphocytes % (Manual) Monocytes % (Manual) Nucleated RBC % Seg Neutrophils # 14.5 H Seg Neutrophils # Man Lymphocytes # (Manual) Monocytes # (Manual) Percent Retic Haptoglobin PT INR Fibrinogen D-Dimer POC ABG pH POC ABG pCO2 POC ABG pO2 Sodium Potassium Chloride Carbon Dioxide BUN 43 H Creatinine 5.4 H Glucose 131 H POC Glucose 320 H Lactic Acid Calcium 6.9 L Phosphorus Magnesium Iron TIBC Transferrin Total Bilirubin Direct Bilirubin AST ALT Alkaline Phosphatase Lactate Dehydrogenase CK-MB (CK-2) Troponin T C-Reactive Protein Total Protein Albumin Triglycerides Cholesterol HDL Cholesterol Vitamin B12 Urine Creatinine Urine Total Protein Heparin-induced Plt Ab Hep Bs Antibody, Quant Crossmatch 12/17/16 12/17/16 12/17/16 08:26 08:56 09:52 WBC RBC Hgb Hct MCV MCHC RDW Plt Count Lymph % (Auto) Starr % (Auto) Starr # Baso # Seg Neutrophils % Seg Neuts % (Manual) Lymphocytes % (Manual) Monocytes % (Manual) Nucleated RBC % Seg Neutrophils # Seg Neutrophils # Man Lymphocytes # (Manual) Monocytes # (Manual) Percent Retic Haptoglobin PT INR Fibrinogen D-Dimer POC ABG pH POC ABG pCO2 POC ABG pO2 Sodium Potassium Chloride Carbon Dioxide BUN Creatinine Glucose POC Glucose < 40 L 40 L 133 H Lactic Acid Calcium Phosphorus Magnesium Iron TIBC Transferrin Total Bilirubin Direct Bilirubin AST ALT Alkaline Phosphatase Lactate Dehydrogenase CK-MB (CK-2) Troponin T C-Reactive Protein Total Protein Albumin Triglycerides Cholesterol HDL Cholesterol Vitamin B12 Urine Creatinine Urine Total Protein Heparin-induced Plt Ab Hep Bs Antibody, Quant Crossmatch 12/17/16 12/17/16 12/17/16 12:51 16:08 21:00 WBC RBC Hgb Hct MCV MCHC RDW Plt Count Lymph % (Auto) Starr % (Auto) Starr # Baso # Seg Neutrophils % Seg Neuts % (Manual) Lymphocytes % (Manual) Monocytes % (Manual) Nucleated RBC % Seg Neutrophils # Seg Neutrophils # Man Lymphocytes # (Manual) Monocytes # (Manual) Percent Retic Haptoglobin PT INR Fibrinogen D-Dimer POC ABG pH POC ABG pCO2 POC ABG pO2 Sodium Potassium Chloride Carbon Dioxide BUN Creatinine Glucose POC Glucose 177 H 303 H 489 H Lactic Acid Calcium Phosphorus Magnesium Iron TIBC Transferrin Total Bilirubin Direct Bilirubin AST ALT Alkaline Phosphatase Lactate Dehydrogenase CK-MB (CK-2) Troponin T C-Reactive Protein Total Protein Albumin Triglycerides Cholesterol HDL Cholesterol Vitamin B12 Urine Creatinine Urine Total Protein Heparin-induced Plt Ab Hep Bs Antibody, Quant Crossmatch 12/17/16 12/17/16 12/18/16 Unknown Unknown 05:50 WBC 16.6 H 15.6 H RBC 2.63 L 2.58 L Hgb 7.5 L 7.3 L Hct 23.3 L 23.0 L MCV MCHC RDW 15.3 H 15.9 H Plt Count Lymph % (Auto) 7.7 L 8.7 L Starr % (Auto) Starr # 0.9 H Baso # Seg Neutrophils % 85.8 H 83.6 H Seg Neuts % (Manual) Lymphocytes % (Manual) Monocytes % (Manual) Nucleated RBC % Seg Neutrophils # 14.3 H 13.0 H Seg Neutrophils # Man Lymphocytes # (Manual) Monocytes # (Manual) Percent Retic Haptoglobin PT INR Fibrinogen D-Dimer POC ABG pH POC ABG pCO2 POC ABG pO2 Sodium Potassium 3.5 L Chloride Carbon Dioxide BUN 47 H Creatinine 5.2 H Glucose 173 H POC Glucose Lactic Acid Calcium 6.9 L Phosphorus Magnesium Iron TIBC Transferrin Total Bilirubin Direct Bilirubin AST ALT Alkaline Phosphatase Lactate Dehydrogenase CK-MB (CK-2) Troponin T C-Reactive Protein Total Protein Albumin Triglycerides Cholesterol HDL Cholesterol Vitamin B12 Urine Creatinine Urine Total Protein Heparin-induced Plt Ab Hep Bs Antibody, Quant Crossmatch 12/18/16 12/18/16 12/18/16 05:50 09:09 16:46 WBC RBC Hgb Hct MCV MCHC RDW Plt Count Lymph % (Auto) Starr % (Auto) Starr # Baso # Seg Neutrophils % Seg Neuts % (Manual) Lymphocytes % (Manual) Monocytes % (Manual) Nucleated RBC % Seg Neutrophils # Seg Neutrophils # Man Lymphocytes # (Manual) Monocytes # (Manual) Percent Retic Haptoglobin PT INR Fibrinogen D-Dimer POC ABG pH POC ABG pCO2 POC ABG pO2 Sodium Potassium Chloride Carbon Dioxide 17 L BUN 46 H Creatinine 5.0 H Glucose 252 H POC Glucose 349 H 324 H Lactic Acid Calcium 6.8 L Phosphorus Magnesium Iron TIBC Transferrin Total Bilirubin Direct Bilirubin AST ALT Alkaline Phosphatase Lactate Dehydrogenase CK-MB (CK-2) Troponin T C-Reactive Protein Total Protein Albumin Triglycerides Cholesterol HDL Cholesterol Vitamin B12 Urine Creatinine Urine Total Protein Heparin-induced Plt Ab Hep Bs Antibody, Quant Crossmatch 12/18/16 12/19/16 12/19/16 21:14 08:12 10:23 WBC 13.7 H RBC 2.60 L Hgb 7.5 L Hct 23.1 L MCV MCHC RDW 15.7 H Plt Count Lymph % (Auto) 9.1 L Starr % (Auto) Starr # 0.9 H Baso # Seg Neutrophils % 82.2 H Seg Neuts % (Manual) Lymphocytes % (Manual) Monocytes % (Manual) Nucleated RBC % Seg Neutrophils # 11.3 H Seg Neutrophils # Man Lymphocytes # (Manual) Monocytes # (Manual) Percent Retic Haptoglobin PT INR Fibrinogen D-Dimer POC ABG pH POC ABG pCO2 POC ABG pO2 Sodium Potassium Chloride Carbon Dioxide BUN Creatinine Glucose POC Glucose 316 H 464 H Lactic Acid Calcium Phosphorus Magnesium Iron TIBC Transferrin Total Bilirubin Direct Bilirubin AST ALT Alkaline Phosphatase Lactate Dehydrogenase CK-MB (CK-2) Troponin T C-Reactive Protein Total Protein Albumin Triglycerides Cholesterol HDL Cholesterol Vitamin B12 Urine Creatinine Urine Total Protein Heparin-induced Plt Ab Hep Bs Antibody, Quant Crossmatch 12/19/16 12/19/16 12/19/16 10:23 11:39 16:00 WBC RBC Hgb Hct MCV MCHC RDW Plt Count Lymph % (Auto) Starr % (Auto) Starr # Baso # Seg Neutrophils % Seg Neuts % (Manual) Lymphocytes % (Manual) Monocytes % (Manual) Nucleated RBC % Seg Neutrophils # Seg Neutrophils # Man Lymphocytes # (Manual) Monocytes # (Manual) Percent Retic Haptoglobin PT INR Fibrinogen D-Dimer POC ABG pH POC ABG pCO2 POC ABG pO2 Sodium Potassium 3.5 L Chloride Carbon Dioxide 14 L BUN 22 H Creatinine 3.2 H Glucose 446 H POC Glucose 344 H 467 H Lactic Acid Calcium 6.9 L Phosphorus 1.70 L D Magnesium Iron TIBC Transferrin Total Bilirubin Direct Bilirubin AST ALT Alkaline Phosphatase Lactate Dehydrogenase CK-MB (CK-2) Troponin T C-Reactive Protein Total Protein Albumin Triglycerides Cholesterol HDL Cholesterol Vitamin B12 Urine Creatinine Urine Total Protein Heparin-induced Plt Ab Hep Bs Antibody, Quant Crossmatch 12/19/16 12/19/16 12/19/16 16:35 16:35 21:16 WBC 19.3 H RBC 2.37 L Hgb 6.9 L Hct 21.8 L MCV MCHC RDW 16.7 H Plt Count Lymph % (Auto) Starr % (Auto) Starr # Baso # Seg Neutrophils % Seg Neuts % (Manual) Lymphocytes % (Manual) Monocytes % (Manual) Nucleated RBC % Seg Neutrophils # Seg Neutrophils # Man Lymphocytes # (Manual) Monocytes # (Manual) Percent Retic Haptoglobin PT INR Fibrinogen D-Dimer POC ABG pH POC ABG pCO2 POC ABG pO2 Sodium Potassium 3.4 L Chloride Carbon Dioxide 17 L BUN 23 H Creatinine 3.2 H Glucose 427 H POC Glucose 397 H Lactic Acid Calcium 6.9 L Phosphorus 2.40 L D Magnesium Iron TIBC Transferrin Total Bilirubin Direct Bilirubin AST ALT Alkaline Phosphatase Lactate Dehydrogenase CK-MB (CK-2) Troponin T C-Reactive Protein Total Protein Albumin Triglycerides Cholesterol HDL Cholesterol Vitamin B12 Urine Creatinine Urine Total Protein Heparin-induced Plt Ab Hep Bs Antibody, Quant Crossmatch 12/20/16 12/20/16 12/20/16 06:00 06:00 07:55 WBC 17.5 H RBC 2.54 L Hgb 7.3 L Hct 23.5 L MCV MCHC RDW 16.4 H Plt Count Lymph % (Auto) 9.0 L Starr % (Auto) Starr # 1.1 H Baso # Seg Neutrophils % 83.0 H Seg Neuts % (Manual) Lymphocytes % (Manual) Monocytes % (Manual) Nucleated RBC % Seg Neutrophils # 14.5 H Seg Neutrophils # Man Lymphocytes # (Manual) Monocytes # (Manual) Percent Retic Haptoglobin PT INR Fibrinogen D-Dimer POC ABG pH POC ABG pCO2 POC ABG pO2 Sodium 136 L Potassium Chloride 92.4 L Carbon Dioxide 15 L BUN Creatinine 2.6 H Glucose 475 H POC Glucose > 500 H Lactic Acid Calcium Phosphorus Magnesium Iron TIBC Transferrin Total Bilirubin Direct Bilirubin AST ALT Alkaline Phosphatase Lactate Dehydrogenase CK-MB (CK-2) Troponin T C-Reactive Protein Total Protein Albumin Triglycerides Cholesterol HDL Cholesterol Vitamin B12 Urine Creatinine Urine Total Protein Heparin-induced Plt Ab Hep Bs Antibody, Quant Crossmatch 12/20/16 12/20/16 12/20/16 11:21 16:01 22:33 WBC RBC Hgb Hct MCV MCHC RDW Plt Count Lymph % (Auto) Starr % (Auto) Starr # Baso # Seg Neutrophils % Seg Neuts % (Manual) Lymphocytes % (Manual) Monocytes % (Manual) Nucleated RBC % Seg Neutrophils # Seg Neutrophils # Man Lymphocytes # (Manual) Monocytes # (Manual) Percent Retic Haptoglobin PT INR Fibrinogen D-Dimer POC ABG pH POC ABG pCO2 POC ABG pO2 Sodium Potassium Chloride Carbon Dioxide BUN Creatinine Glucose POC Glucose > 500 H 446 H > 500 H Lactic Acid Calcium Phosphorus Magnesium Iron TIBC Transferrin Total Bilirubin Direct Bilirubin AST ALT Alkaline Phosphatase Lactate Dehydrogenase CK-MB (CK-2) Troponin T C-Reactive Protein Total Protein Albumin Triglycerides Cholesterol HDL Cholesterol Vitamin B12 Urine Creatinine Urine Total Protein Heparin-induced Plt Ab Hep Bs Antibody, Quant Crossmatch 12/20/16 12/20/16 12/21/16 22:37 23:00 00:48 WBC RBC Hgb Hct MCV MCHC RDW Plt Count Lymph % (Auto) Starr % (Auto) Starr # Baso # Seg Neutrophils % Seg Neuts % (Manual) Lymphocytes % (Manual) Monocytes % (Manual) Nucleated RBC % Seg Neutrophils # Seg Neutrophils # Man Lymphocytes # (Manual) Monocytes # (Manual) Percent Retic Haptoglobin PT INR Fibrinogen D-Dimer POC ABG pH POC ABG pCO2 POC ABG pO2 Sodium 128 L D Potassium Chloride 83.2 L Carbon Dioxide 11 L BUN 32 H Creatinine 3.5 H Glucose 822 H* POC Glucose > 500 H > 500 H Lactic Acid Calcium 8.2 L Phosphorus Magnesium Iron TIBC Transferrin Total Bilirubin Direct Bilirubin AST ALT Alkaline Phosphatase Lactate Dehydrogenase CK-MB (CK-2) Troponin T C-Reactive Protein Total Protein Albumin Triglycerides Cholesterol HDL Cholesterol Vitamin B12 Urine Creatinine Urine Total Protein Heparin-induced Plt Ab Hep Bs Antibody, Quant Crossmatch 12/21/16 12/21/16 12/21/16 03:17 05:00 05:00 WBC 15.7 H RBC 2.32 L Hgb 6.8 L Hct 20.6 L MCV MCHC RDW 16.3 H Plt Count Lymph % (Auto) 11.5 L Starr % (Auto) 7.4 H Starr # 1.2 H Baso # Seg Neutrophils % 78.7 H Seg Neuts % (Manual) Lymphocytes % (Manual) Monocytes % (Manual) Nucleated RBC % Seg Neutrophils # 12.4 H Seg Neutrophils # Man Lymphocytes # (Manual) Monocytes # (Manual) Percent Retic Haptoglobin PT INR Fibrinogen D-Dimer POC ABG pH POC ABG pCO2 POC ABG pO2 Sodium Potassium Chloride 95.3 L Carbon Dioxide 20 L D BUN 32 H Creatinine 3.7 H Glucose 243 H POC Glucose 428 H Lactic Acid Calcium 8.1 L Phosphorus Magnesium Iron TIBC 193.20 L Transferrin 138 L Total Bilirubin Direct Bilirubin AST ALT Alkaline Phosphatase Lactate Dehydrogenase CK-MB (CK-2) Troponin T C-Reactive Protein Total Protein Albumin Triglycerides Cholesterol HDL Cholesterol Vitamin B12 Urine Creatinine Urine Total Protein Heparin-induced Plt Ab Hep Bs Antibody, Quant Crossmatch 12/21/16 12/21/16 12/21/16 05:40 06:49 08:20 WBC RBC Hgb Hct MCV MCHC RDW Plt Count Lymph % (Auto) Starr % (Auto) Starr # Baso # Seg Neutrophils % Seg Neuts % (Manual) Lymphocytes % (Manual) Monocytes % (Manual) Nucleated RBC % Seg Neutrophils # Seg Neutrophils # Man Lymphocytes # (Manual) Monocytes # (Manual) Percent Retic Haptoglobin PT INR Fibrinogen D-Dimer POC ABG pH POC ABG pCO2 POC ABG pO2 Sodium Potassium Chloride Carbon Dioxide BUN Creatinine Glucose POC Glucose 271 H 236 H 222 H Lactic Acid Calcium Phosphorus Magnesium Iron TIBC Transferrin Total Bilirubin Direct Bilirubin AST ALT Alkaline Phosphatase Lactate Dehydrogenase CK-MB (CK-2) Troponin T C-Reactive Protein Total Protein Albumin Triglycerides Cholesterol HDL Cholesterol Vitamin B12 Urine Creatinine Urine Total Protein Heparin-induced Plt Ab Hep Bs Antibody, Quant Crossmatch 12/21/16 12/21/16 12/21/16 16:28 18:26 21:10 WBC RBC Hgb Hct MCV MCHC RDW Plt Count Lymph % (Auto) Starr % (Auto) Starr # Baso # Seg Neutrophils % Seg Neuts % (Manual) Lymphocytes % (Manual) Monocytes % (Manual) Nucleated RBC % Seg Neutrophils # Seg Neutrophils # Man Lymphocytes # (Manual) Monocytes # (Manual) Percent Retic Haptoglobin PT INR Fibrinogen D-Dimer POC ABG pH POC ABG pCO2 POC ABG pO2 Sodium Potassium Chloride Carbon Dioxide BUN Creatinine Glucose POC Glucose < 40 L 62 L 255 H Lactic Acid Calcium Phosphorus Magnesium Iron TIBC Transferrin Total Bilirubin Direct Bilirubin AST ALT Alkaline Phosphatase Lactate Dehydrogenase CK-MB (CK-2) Troponin T C-Reactive Protein Total Protein Albumin Triglycerides Cholesterol HDL Cholesterol Vitamin B12 Urine Creatinine Urine Total Protein Heparin-induced Plt Ab Hep Bs Antibody, Quant Crossmatch 12/22/16 12/22/16 12/22/16 03:38 06:45 06:45 WBC 17.4 H RBC 2.26 L Hgb 6.6 L Hct 20.5 L MCV MCHC RDW 15.7 H Plt Count Lymph % (Auto) 8.1 L Starr % (Auto) Starr # 0.9 H Baso # 0.2 H Seg Neutrophils % 84.3 H Seg Neuts % (Manual) Lymphocytes % (Manual) Monocytes % (Manual) Nucleated RBC % Seg Neutrophils # 14.6 H Seg Neutrophils # Man Lymphocytes # (Manual) Monocytes # (Manual) Percent Retic Haptoglobin PT INR Fibrinogen D-Dimer POC ABG pH POC ABG pCO2 POC ABG pO2 Sodium Potassium 3.3 L Chloride 95.5 L Carbon Dioxide 20 L BUN Creatinine 2.5 H Glucose 308 H POC Glucose 430 H Lactic Acid Calcium 8.2 L Phosphorus Magnesium Iron TIBC Transferrin Total Bilirubin Direct Bilirubin AST ALT Alkaline Phosphatase Lactate Dehydrogenase CK-MB (CK-2) Troponin T C-Reactive Protein Total Protein Albumin Triglycerides Cholesterol HDL Cholesterol Vitamin B12 Urine Creatinine Urine Total Protein Heparin-induced Plt Ab Hep Bs Antibody, Quant Crossmatch 12/22/16 12/22/16 12/22/16 08:31 12:50 15:46 WBC RBC Hgb Hct MCV MCHC RDW Plt Count Lymph % (Auto) Starr % (Auto) Starr # Baso # Seg Neutrophils % Seg Neuts % (Manual) Lymphocytes % (Manual) Monocytes % (Manual) Nucleated RBC % Seg Neutrophils # Seg Neutrophils # Man Lymphocytes # (Manual) Monocytes # (Manual) Percent Retic Haptoglobin PT INR Fibrinogen D-Dimer POC ABG pH POC ABG pCO2 POC ABG pO2 Sodium Potassium Chloride Carbon Dioxide BUN Creatinine Glucose POC Glucose 306 H 391 H Lactic Acid Calcium Phosphorus Magnesium Iron TIBC Transferrin Total Bilirubin Direct Bilirubin AST ALT Alkaline Phosphatase Lactate Dehydrogenase CK-MB (CK-2) Troponin T C-Reactive Protein Total Protein Albumin Triglycerides Cholesterol HDL Cholesterol Vitamin B12 Urine Creatinine Urine Total Protein Heparin-induced Plt Ab Hep Bs Antibody, Quant Crossmatch See Detail 12/22/16 12/22/16 12/23/16 17:13 21:45 06:42 WBC 17.9 H RBC 2.75 L Hgb 8.1 L Hct 24.8 L MCV MCHC RDW 17.1 H Plt Count Lymph % (Auto) Starr % (Auto) Starr # Baso # Seg Neutrophils % Seg Neuts % (Manual) Lymphocytes % (Manual) Monocytes % (Manual) Nucleated RBC % Seg Neutrophils # Seg Neutrophils # Man Lymphocytes # (Manual) Monocytes # (Manual) Percent Retic Haptoglobin PT INR Fibrinogen D-Dimer POC ABG pH POC ABG pCO2 POC ABG pO2 Sodium Potassium Chloride Carbon Dioxide BUN Creatinine Glucose POC Glucose > 500 H 449 H Lactic Acid Calcium Phosphorus Magnesium Iron TIBC Transferrin Total Bilirubin Direct Bilirubin AST ALT Alkaline Phosphatase Lactate Dehydrogenase CK-MB (CK-2) Troponin T C-Reactive Protein Total Protein Albumin Triglycerides Cholesterol HDL Cholesterol Vitamin B12 Urine Creatinine Urine Total Protein Heparin-induced Plt Ab Hep Bs Antibody, Quant Crossmatch 12/23/16 12/23/16 12/23/16 06:42 07:46 11:33 WBC RBC Hgb Hct MCV MCHC RDW Plt Count Lymph % (Auto) Starr % (Auto) Starr # Baso # Seg Neutrophils % Seg Neuts % (Manual) Lymphocytes % (Manual) Monocytes % (Manual) Nucleated RBC % Seg Neutrophils # Seg Neutrophils # Man Lymphocytes # (Manual) Monocytes # (Manual) Percent Retic Haptoglobin PT INR Fibrinogen D-Dimer POC ABG pH POC ABG pCO2 POC ABG pO2 Sodium Potassium 3.5 L Chloride 94.7 L Carbon Dioxide 19 L BUN 22 H Creatinine 2.9 H Glucose 401 H POC Glucose 449 H 298 H Lactic Acid Calcium 8.3 L Phosphorus Magnesium Iron TIBC Transferrin Total Bilirubin Direct Bilirubin AST ALT Alkaline Phosphatase Lactate Dehydrogenase CK-MB (CK-2) Troponin T C-Reactive Protein Total Protein Albumin Triglycerides Cholesterol HDL Cholesterol Vitamin B12 Urine Creatinine Urine Total Protein Heparin-induced Plt Ab Hep Bs Antibody, Quant Crossmatch 12/23/16 12/23/16 12/24/16 18:24 21:30 00:00 WBC RBC Hgb Hct MCV MCHC RDW Plt Count Lymph % (Auto) Starr % (Auto) Starr # Baso # Seg Neutrophils % Seg Neuts % (Manual) Lymphocytes % (Manual) Monocytes % (Manual) Nucleated RBC % Seg Neutrophils # Seg Neutrophils # Man Lymphocytes # (Manual) Monocytes # (Manual) Percent Retic Haptoglobin PT INR Fibrinogen D-Dimer POC ABG pH POC ABG pCO2 POC ABG pO2 Sodium Potassium Chloride Carbon Dioxide BUN Creatinine Glucose POC Glucose 177 H 455 H Lactic Acid Calcium Phosphorus Magnesium Iron TIBC Transferrin Total Bilirubin Direct Bilirubin AST ALT Alkaline Phosphatase Lactate Dehydrogenase CK-MB (CK-2) Troponin T C-Reactive Protein Total Protein Albumin Triglycerides Cholesterol HDL Cholesterol Vitamin B12 Urine Creatinine 239.9 H Urine Total Protein Heparin-induced Plt Ab Hep Bs Antibody, Quant Crossmatch 12/24/16 12/24/16 12/24/16 05:00 16:11 18:55 WBC RBC Hgb Hct MCV MCHC RDW Plt Count Lymph % (Auto) Starr % (Auto) Starr # Baso # Seg Neutrophils % Seg Neuts % (Manual) Lymphocytes % (Manual) Monocytes % (Manual) Nucleated RBC % Seg Neutrophils # Seg Neutrophils # Man Lymphocytes # (Manual) Monocytes # (Manual) Percent Retic Haptoglobin PT INR Fibrinogen D-Dimer POC ABG pH POC ABG pCO2 POC ABG pO2 Sodium Potassium 3.1 L Chloride 95.8 L Carbon Dioxide BUN Creatinine 1.8 H Glucose 106 H POC Glucose 175 H 148 H Lactic Acid Calcium Phosphorus Magnesium Iron TIBC Transferrin Total Bilirubin Direct Bilirubin AST ALT Alkaline Phosphatase Lactate Dehydrogenase CK-MB (CK-2) Troponin T C-Reactive Protein Total Protein Albumin Triglycerides Cholesterol HDL Cholesterol Vitamin B12 Urine Creatinine Urine Total Protein Heparin-induced Plt Ab Hep Bs Antibody, Quant Crossmatch 12/24/16 12/24/16 12/25/16 20:41 22:21 05:03 WBC RBC Hgb Hct MCV MCHC RDW Plt Count Lymph % (Auto) Starr % (Auto) Starr # Baso # Seg Neutrophils % Seg Neuts % (Manual) Lymphocytes % (Manual) Monocytes % (Manual) Nucleated RBC % Seg Neutrophils # Seg Neutrophils # Man Lymphocytes # (Manual) Monocytes # (Manual) Percent Retic Haptoglobin PT INR Fibrinogen D-Dimer POC ABG pH POC ABG pCO2 POC ABG pO2 Sodium Potassium 2.9 L* Chloride Carbon Dioxide BUN Creatinine 2.3 H Glucose 142 H POC Glucose 44 L 111 H Lactic Acid Calcium 8.0 L Phosphorus Magnesium Iron TIBC Transferrin Total Bilirubin Direct Bilirubin AST ALT Alkaline Phosphatase Lactate Dehydrogenase CK-MB (CK-2) Troponin T C-Reactive Protein Total Protein Albumin Triglycerides Cholesterol HDL Cholesterol Vitamin B12 Urine Creatinine Urine Total Protein Heparin-induced Plt Ab Hep Bs Antibody, Quant Crossmatch 12/25/16 12/25/16 12/25/16 07:30 12:08 16:43 WBC RBC Hgb Hct MCV MCHC RDW Plt Count Lymph % (Auto) Starr % (Auto) Starr # Baso # Seg Neutrophils % Seg Neuts % (Manual) Lymphocytes % (Manual) Monocytes % (Manual) Nucleated RBC % Seg Neutrophils # Seg Neutrophils # Man Lymphocytes # (Manual) Monocytes # (Manual) Percent Retic Haptoglobin PT INR Fibrinogen D-Dimer POC ABG pH POC ABG pCO2 POC ABG pO2 Sodium Potassium Chloride Carbon Dioxide BUN Creatinine Glucose POC Glucose 127 H 154 H 235 H Lactic Acid Calcium Phosphorus Magnesium Iron TIBC Transferrin Total Bilirubin Direct Bilirubin AST ALT Alkaline Phosphatase Lactate Dehydrogenase CK-MB (CK-2) Troponin T C-Reactive Protein Total Protein Albumin Triglycerides Cholesterol HDL Cholesterol Vitamin B12 Urine Creatinine Urine Total Protein Heparin-induced Plt Ab Hep Bs Antibody, Quant Crossmatch 12/25/16 12/26/16 12/26/16 23:30 07:49 10:21 WBC RBC Hgb Hct MCV MCHC RDW Plt Count Lymph % (Auto) Starr % (Auto) Starr # Baso # Seg Neutrophils % Seg Neuts % (Manual) Lymphocytes % (Manual) Monocytes % (Manual) Nucleated RBC % Seg Neutrophils # Seg Neutrophils # Man Lymphocytes # (Manual) Monocytes # (Manual) Percent Retic Haptoglobin PT INR Fibrinogen D-Dimer POC ABG pH POC ABG pCO2 POC ABG pO2 Sodium Potassium Chloride Carbon Dioxide BUN Creatinine Glucose POC Glucose 54 L 53 L 154 H Lactic Acid Calcium Phosphorus Magnesium Iron TIBC Transferrin Total Bilirubin Direct Bilirubin AST ALT Alkaline Phosphatase Lactate Dehydrogenase CK-MB (CK-2) Troponin T C-Reactive Protein Total Protein Albumin Triglycerides Cholesterol HDL Cholesterol Vitamin B12 Urine Creatinine Urine Total Protein Heparin-induced Plt Ab Hep Bs Antibody, Quant Crossmatch 12/26/16 12/26/16 12/26/16 12:19 16:14 Unknown WBC RBC Hgb Hct MCV MCHC RDW Plt Count Lymph % (Auto) Starr % (Auto) Starr # Baso # Seg Neutrophils % Seg Neuts % (Manual) Lymphocytes % (Manual) Monocytes % (Manual) Nucleated RBC % Seg Neutrophils # Seg Neutrophils # Man Lymphocytes # (Manual) Monocytes # (Manual) Percent Retic Haptoglobin PT INR Fibrinogen D-Dimer POC ABG pH POC ABG pCO2 POC ABG pO2 Sodium Potassium Chloride Carbon Dioxide BUN Creatinine 2.3 H Glucose POC Glucose 310 H Lactic Acid Calcium 8.3 L Phosphorus Magnesium 1.50 L Iron TIBC Transferrin Total Bilirubin Direct Bilirubin AST ALT Alkaline Phosphatase Lactate Dehydrogenase CK-MB (CK-2) Troponin T C-Reactive Protein Total Protein Albumin Triglycerides Cholesterol HDL Cholesterol Vitamin B12 Urine Creatinine Urine Total Protein Heparin-induced Plt Ab Hep Bs Antibody, Quant Crossmatch 12/26/16 12/26/16 12/27/16 Unknown Unknown 04:47 WBC RBC 2.95 L Hgb 9.0 L Hct 26.5 L MCV MCHC RDW 16.6 H Plt Count Lymph % (Auto) Starr % (Auto) Starr # Baso # Seg Neutrophils % Seg Neuts % (Manual) Lymphocytes % (Manual) Monocytes % (Manual) Nucleated RBC % Seg Neutrophils # Seg Neutrophils # Man Lymphocytes # (Manual) Monocytes # (Manual) Percent Retic Haptoglobin PT INR Fibrinogen D-Dimer POC ABG pH POC ABG pCO2 POC ABG pO2 Sodium Potassium Chloride Carbon Dioxide BUN Creatinine 2.3 H Glucose 157 H POC Glucose 406 H Lactic Acid Calcium 7.7 L Phosphorus Magnesium Iron TIBC Transferrin Total Bilirubin Direct Bilirubin AST ALT Alkaline Phosphatase Lactate Dehydrogenase CK-MB (CK-2) Troponin T C-Reactive Protein Total Protein Albumin Triglycerides Cholesterol HDL Cholesterol Vitamin B12 Urine Creatinine Urine Total Protein Heparin-induced Plt Ab Hep Bs Antibody, Quant Crossmatch 12/27/16 12/27/1612/27/17 07:54 11:09 15:40 WBC RBC Hgb Hct MCV MCHC RDW Plt Count Lymph % (Auto) Starr % (Auto) Starr # Baso # Seg Neutrophils % Seg Neuts % (Manual) Lymphocytes % (Manual) Monocytes % (Manual) Nucleated RBC % Seg Neutrophils # Seg Neutrophils # Man Lymphocytes # (Manual) Monocytes # (Manual) Percent Retic Haptoglobin PT INR Fibrinogen D-Dimer POC ABG pH POC ABG pCO2 POC ABG pO2 Sodium Potassium Chloride Carbon Dioxide BUN Creatinine Glucose POC Glucose 500 H 301 H 208 H Lactic Acid Calcium Phosphorus Magnesium Iron TIBC Transferrin Total Bilirubin Direct Bilirubin AST ALT Alkaline Phosphatase Lactate Dehydrogenase CK-MB (CK-2) Troponin T C-Reactive Protein Total Protein Albumin Triglycerides Cholesterol HDL Cholesterol Vitamin B12 Urine Creatinine Urine Total Protein Heparin-induced Plt Ab Hep Bs Antibody, Quant Crossmatch 12/27/16 12/28/16 12/28/16 21:00 06:17 07:30 WBC RBC Hgb Hct MCV MCHC RDW Plt Count Lymph % (Auto) Starr % (Auto) Starr # Baso # Seg Neutrophils % Seg Neuts % (Manual) Lymphocytes % (Manual) Monocytes % (Manual) Nucleated RBC % Seg Neutrophils # Seg Neutrophils # Man Lymphocytes # (Manual) Monocytes # (Manual) Percent Retic Haptoglobin PT INR Fibrinogen D-Dimer POC ABG pH POC ABG pCO2 POC ABG pO2 Sodium Potassium 5.1 H D Chloride Carbon Dioxide 19 L BUN 24 H Creatinine 2.0 H Glucose 394 H POC Glucose 347 H 409 H Lactic Acid Calcium 7.7 L Phosphorus Magnesium Iron TIBC Transferrin Total Bilirubin Direct Bilirubin AST ALT Alkaline Phosphatase Lactate Dehydrogenase CK-MB (CK-2) Troponin T C-Reactive Protein Total Protein Albumin Triglycerides Cholesterol HDL Cholesterol Vitamin B12 Urine Creatinine Urine Total Protein Heparin-induced Plt Ab Hep Bs Antibody, Quant Crossmatch 12/28/16 12/28/16 12/28/16 11:33 16:38 20:59 WBC RBC Hgb Hct MCV MCHC RDW Plt Count Lymph % (Auto) Starr % (Auto) Starr # Baso # Seg Neutrophils % Seg Neuts % (Manual) Lymphocytes % (Manual) Monocytes % (Manual) Nucleated RBC % Seg Neutrophils # Seg Neutrophils # Man Lymphocytes # (Manual) Monocytes # (Manual) Percent Retic Haptoglobin PT INR Fibrinogen D-Dimer POC ABG pH POC ABG pCO2 POC ABG pO2 Sodium Potassium Chloride Carbon Dioxide BUN Creatinine Glucose POC Glucose 260 H 240 H 45 L Lactic Acid Calcium Phosphorus Magnesium Iron TIBC Transferrin Total Bilirubin Direct Bilirubin AST ALT Alkaline Phosphatase Lactate Dehydrogenase CK-MB (CK-2) Troponin T C-Reactive Protein Total Protein Albumin Triglycerides Cholesterol HDL Cholesterol Vitamin B12 Urine Creatinine Urine Total Protein Heparin-induced Plt Ab Hep Bs Antibody, Quant Crossmatch 12/28/16 12/29/16 12/29/16 22:14 04:45 05:52 WBC RBC Hgb Hct MCV MCHC RDW Plt Count Lymph % (Auto) Starr % (Auto) Starr # Baso # Seg Neutrophils % Seg Neuts % (Manual) Lymphocytes % (Manual) Monocytes % (Manual) Nucleated RBC % Seg Neutrophils # Seg Neutrophils # Man Lymphocytes # (Manual) Monocytes # (Manual) Percent Retic Haptoglobin PT INR Fibrinogen D-Dimer POC ABG pH POC ABG pCO2 POC ABG pO2 Sodium Potassium Chloride Carbon Dioxide BUN 23 H Creatinine 2.0 H Glucose 166 H POC Glucose 56 L 43 L Lactic Acid Calcium 7.7 L Phosphorus Magnesium Iron TIBC Transferrin Total Bilirubin Direct Bilirubin AST ALT Alkaline Phosphatase Lactate Dehydrogenase CK-MB (CK-2) Troponin T C-Reactive Protein Total Protein Albumin Triglycerides Cholesterol HDL Cholesterol Vitamin B12 Urine Creatinine Urine Total Protein Heparin-induced Plt Ab Hep Bs Antibody, Quant Crossmatch 12/29/16 12/29/16 12/30/16 06:52 11:52 05:00 WBC RBC Hgb Hct MCV MCHC RDW Plt Count Lymph % (Auto) Starr % (Auto) Starr # Baso # Seg Neutrophils % Seg Neuts % (Manual) Lymphocytes % (Manual) Monocytes % (Manual) Nucleated RBC % Seg Neutrophils # Seg Neutrophils # Man Lymphocytes # (Manual) Monocytes # (Manual) Percent Retic Haptoglobin PT INR Fibrinogen D-Dimer POC ABG pH POC ABG pCO2 POC ABG pO2 Sodium Potassium Chloride Carbon Dioxide BUN 20 H Creatinine 2.0 H Glucose 150 H POC Glucose 115 H 143 H Lactic Acid Calcium 7.6 L Phosphorus Magnesium Iron TIBC Transferrin Total Bilirubin Direct Bilirubin AST ALT Alkaline Phosphatase Lactate Dehydrogenase CK-MB (CK-2) Troponin T C-Reactive Protein Total Protein Albumin Triglycerides Cholesterol HDL Cholesterol Vitamin B12 Urine Creatinine Urine Total Protein Heparin-induced Plt Ab Hep Bs Antibody, Quant Crossmatch 12/30/16 12/30/16 12/30/16 07:11 11:36 15:17 WBC RBC Hgb Hct MCV MCHC RDW Plt Count Lymph % (Auto) Starr % (Auto) Starr # Baso # Seg Neutrophils % Seg Neuts % (Manual) Lymphocytes % (Manual) Monocytes % (Manual) Nucleated RBC % Seg Neutrophils # Seg Neutrophils # Man Lymphocytes # (Manual) Monocytes # (Manual) Percent Retic Haptoglobin PT INR Fibrinogen D-Dimer POC ABG pH POC ABG pCO2 POC ABG pO2 Sodium Potassium Chloride Carbon Dioxide BUN Creatinine Glucose POC Glucose 162 H 137 H 123 H Lactic Acid Calcium Phosphorus Magnesium Iron TIBC Transferrin Total Bilirubin Direct Bilirubin AST ALT Alkaline Phosphatase Lactate Dehydrogenase CK-MB (CK-2) Troponin T C-Reactive Protein Total Protein Albumin Triglycerides Cholesterol HDL Cholesterol Vitamin B12 Urine Creatinine Urine Total Protein Heparin-induced Plt Ab Hep Bs Antibody, Quant Crossmatch 12/30/16 12/30/16 12/30/16 21:11 22:13 23:35 WBC RBC Hgb Hct MCV MCHC RDW Plt Count Lymph % (Auto) Starr % (Auto) Starr # Baso # Seg Neutrophils % Seg Neuts % (Manual) Lymphocytes % (Manual) Monocytes % (Manual) Nucleated RBC % Seg Neutrophils # Seg Neutrophils # Man Lymphocytes # (Manual) Monocytes # (Manual) Percent Retic Haptoglobin PT INR Fibrinogen D-Dimer POC ABG pH POC ABG pCO2 POC ABG pO2 Sodium Potassium Chloride Carbon Dioxide BUN Creatinine Glucose POC Glucose < 40 L 40 L 126 H Lactic Acid Calcium Phosphorus Magnesium Iron TIBC Transferrin Total Bilirubin Direct Bilirubin AST ALT Alkaline Phosphatase Lactate Dehydrogenase CK-MB (CK-2) Troponin T C-Reactive Protein Total Protein Albumin Triglycerides Cholesterol HDL Cholesterol Vitamin B12 Urine Creatinine Urine Total Protein Heparin-induced Plt Ab Hep Bs Antibody, Quant Crossmatch 12/31/16 12/31/16 12/31/16 06:38 07:51 08:28 WBC RBC Hgb Hct MCV MCHC RDW Plt Count Lymph % (Auto) Starr % (Auto) Starr # Baso # Seg Neutrophils % Seg Neuts % (Manual) Lymphocytes % (Manual) Monocytes % (Manual) Nucleated RBC % Seg Neutrophils # Seg Neutrophils # Man Lymphocytes # (Manual) Monocytes # (Manual) Percent Retic Haptoglobin PT INR Fibrinogen D-Dimer POC ABG pH POC ABG pCO2 POC ABG pO2 Sodium Potassium Chloride Carbon Dioxide BUN 20 H Creatinine 1.6 H Glucose 28 L* POC Glucose 44 L 155 H Lactic Acid Calcium 7.4 L Phosphorus Magnesium Iron TIBC Transferrin Total Bilirubin Direct Bilirubin AST ALT Alkaline Phosphatase Lactate Dehydrogenase CK-MB (CK-2) Troponin T C-Reactive Protein Total Protein Albumin Triglycerides Cholesterol HDL Cholesterol Vitamin B12 Urine Creatinine Urine Total Protein Heparin-induced Plt Ab Hep Bs Antibody, Quant Crossmatch 12/31/16 12/31/16 12/31/16 11:27 12:59 16:10 WBC RBC Hgb Hct MCV MCHC RDW Plt Count Lymph % (Auto) Starr % (Auto) Starr # Baso # Seg Neutrophils % Seg Neuts % (Manual) Lymphocytes % (Manual) Monocytes % (Manual) Nucleated RBC % Seg Neutrophils # Seg Neutrophils # Man Lymphocytes # (Manual) Monocytes # (Manual) Percent Retic Haptoglobin PT INR Fibrinogen D-Dimer POC ABG pH POC ABG pCO2 POC ABG pO2 Sodium Potassium Chloride Carbon Dioxide BUN Creatinine Glucose POC Glucose 113 H 113 H 216 H Lactic Acid Calcium Phosphorus Magnesium Iron TIBC Transferrin Total Bilirubin Direct Bilirubin AST ALT Alkaline Phosphatase Lactate Dehydrogenase CK-MB (CK-2) Troponin T C-Reactive Protein Total Protein Albumin Triglycerides Cholesterol HDL Cholesterol Vitamin B12 Urine Creatinine Urine Total Protein Heparin-induced Plt Ab Hep Bs Antibody, Quant Crossmatch 12/31/16 01/01/17 01/01/17 21:22 01:11 01:46 WBC RBC Hgb Hct MCV MCHC RDW Plt Count Lymph % (Auto) Starr % (Auto) Starr # Baso # Seg Neutrophils % Seg Neuts % (Manual) Lymphocytes % (Manual) Monocytes % (Manual) Nucleated RBC % Seg Neutrophils # Seg Neutrophils # Man Lymphocytes # (Manual) Monocytes # (Manual) Percent Retic Haptoglobin PT INR Fibrinogen D-Dimer POC ABG pH POC ABG pCO2 POC ABG pO2 Sodium Potassium Chloride Carbon Dioxide BUN Creatinine Glucose POC Glucose 410 H 129 H Lactic Acid Calcium Phosphorus Magnesium 1.40 L Iron TIBC Transferrin Total Bilirubin Direct Bilirubin AST ALT Alkaline Phosphatase Lactate Dehydrogenase CK-MB (CK-2) Troponin T C-Reactive Protein Total Protein Albumin Triglycerides Cholesterol HDL Cholesterol Vitamin B12 Urine Creatinine Urine Total Protein Heparin-induced Plt Ab Hep Bs Antibody, Quant Crossmatch 01/01/17 01/01/17 01/01/17 05:00 08:07 11:56 WBC RBC Hgb Hct MCV MCHC RDW Plt Count Lymph % (Auto) Starr % (Auto) Starr # Baso # Seg Neutrophils % Seg Neuts % (Manual) Lymphocytes % (Manual) Monocytes % (Manual) Nucleated RBC % Seg Neutrophils # Seg Neutrophils # Man Lymphocytes # (Manual) Monocytes # (Manual) Percent Retic Haptoglobin PT INR Fibrinogen D-Dimer POC ABG pH POC ABG pCO2 POC ABG pO2 Sodium Potassium 5.2 H D Chloride Carbon Dioxide BUN 22 H Creatinine 1.6 H Glucose 167 H POC Glucose 431 H 216 H Lactic Acid Calcium 7.8 L Phosphorus Magnesium Iron TIBC Transferrin Total Bilirubin Direct Bilirubin AST ALT Alkaline Phosphatase Lactate Dehydrogenase CK-MB (CK-2) Troponin T C-Reactive Protein Total Protein Albumin Triglycerides Cholesterol HDL Cholesterol Vitamin B12 Urine Creatinine Urine Total Protein Heparin-induced Plt Ab Hep Bs Antibody, Quant Crossmatch 01/01/17 01/01/17 01/02/17 16:02 20:53 05:10 WBC RBC Hgb Hct MCV MCHC RDW Plt Count Lymph % (Auto) Starr % (Auto) Starr # Baso # Seg Neutrophils % Seg Neuts % (Manual) Lymphocytes % (Manual) Monocytes % (Manual) Nucleated RBC % Seg Neutrophils # Seg Neutrophils # Man Lymphocytes # (Manual) Monocytes # (Manual) Percent Retic Haptoglobin PT INR Fibrinogen D-Dimer POC ABG pH POC ABG pCO2 POC ABG pO2 Sodium Potassium Chloride Carbon Dioxide BUN 21 H Creatinine 1.5 H Glucose 313 H POC Glucose 491 H 114 H Lactic Acid Calcium 8.3 L Phosphorus Magnesium Iron TIBC Transferrin Total Bilirubin Direct Bilirubin AST ALT Alkaline Phosphatase Lactate Dehydrogenase CK-MB (CK-2) Troponin T C-Reactive Protein Total Protein Albumin Triglycerides Cholesterol HDL Cholesterol Vitamin B12 Urine Creatinine Urine Total Protein Heparin-induced Plt Ab Hep Bs Antibody, Quant Crossmatch 01/02/17 01/02/17 01/02/17 05:10 06:03 09:04 WBC 12.7 H RBC 2.77 L Hgb 8.0 L Hct 25.5 L MCV MCHC RDW 16.6 H Plt Count Lymph % (Auto) Starr % (Auto) Starr # Baso # Seg Neutrophils % Seg Neuts % (Manual) Lymphocytes % (Manual) Monocytes % (Manual) Nucleated RBC % Seg Neutrophils # Seg Neutrophils # Man Lymphocytes # (Manual) Monocytes # (Manual) Percent Retic Haptoglobin PT INR Fibrinogen D-Dimer POC ABG pH POC ABG pCO2 POC ABG pO2 Sodium Potassium Chloride Carbon Dioxide BUN Creatinine Glucose POC Glucose 304 H 52 L Lactic Acid Calcium Phosphorus Magnesium Iron TIBC Transferrin Total Bilirubin Direct Bilirubin AST ALT Alkaline Phosphatase Lactate Dehydrogenase CK-MB (CK-2) Troponin T C-Reactive Protein Total Protein Albumin Triglycerides Cholesterol HDL Cholesterol Vitamin B12 Urine Creatinine Urine Total Protein Heparin-induced Plt Ab Hep Bs Antibody, Quant Crossmatch 01/02/17 01/02/17 12:06 16:35 WBC RBC Hgb Hct MCV MCHC RDW Plt Count Lymph % (Auto) Starr % (Auto) Starr # Baso # Seg Neutrophils % Seg Neuts % (Manual) Lymphocytes % (Manual) Monocytes % (Manual) Nucleated RBC % Seg Neutrophils # Seg Neutrophils # Man Lymphocytes # (Manual) Monocytes # (Manual) Percent Retic Haptoglobin PT INR Fibrinogen D-Dimer POC ABG pH POC ABG pCO2 POC ABG pO2 Sodium Potassium Chloride Carbon Dioxide BUN Creatinine Glucose POC Glucose 157 H 286 H Lactic Acid Calcium Phosphorus Magnesium Iron TIBC Transferrin Total Bilirubin Direct Bilirubin AST ALT Alkaline Phosphatase Lactate Dehydrogenase CK-MB (CK-2) Troponin T C-Reactive Protein Total Protein Albumin Triglycerides Cholesterol HDL Cholesterol Vitamin B12 Urine Creatinine Urine Total Protein Heparin-induced Plt Ab Hep Bs Antibody, Quant Crossmatch Chest x-ray: report reviewed (Post bronchoscopy chest xray , No pneumothorax.)
[2017-01-03] MEDS: PERCOCET 5/325 PO PRN ×4 (04:40→22:33)
[2017-01-03] MEDS: BENADRYL PO PRN ×4 (04:40→22:40)
[2017-01-03 07:36] LABS: Hematocrit 21.5 % (30.3-42.9); Hemoglobin 6.8 gm/dl (10.1-14.3); Mean Corpuscular HGB Conc 32 % (30-34); Mean Corpuscular Hemoglobin 28 pg (28-32); Mean Corpuscular Volume 90 fl (79-97); Platelet Count 377 K/mm3 (140-440); Red Blood Count 2.39 M/mm3 (3.65-5.03); Red Cell Distribution Width 16.7 % (13.2-15.2); White Blood Count 9.3 K/mm3 (4.5-11.0)
[2017-01-03] MEDS: LOPRESSOR PO SCH ×2 (10:14→22:34)
[2017-01-03] MEDS: PEPCID PO SCH (10:14)
[2017-01-03 10:16] LABS: Anion Gap 9 mmol/L; BUN/Creatinine Ratio 11.33; Blood Urea Nitrogen 17 mg/dL (7-17); Carbon Dioxide 22 mmol/L (22-30); Chloride 110.5 mmol/L (98-107); Glucose 327 mg/dL (65-100); Potassium 4.6 mmol/L (3.6-5.0); Sodium 137 mmol/L (137-145)
[2017-01-03 10:17] LABS: Calcium 7.3 mg/dL (8.4-10.2)
[2017-01-03] MEDS: NOVOLOG SUB-Q SCH ×4 (10:17→22:35)
[2017-01-03] MEDS: LOVENOX SUB-Q SCH (10:17)
[2017-01-03] MEDS ORDERED: NACL 0.9% 500 ML 500 ML IV ONE (11:38)
[2017-01-03] MEDS: LEVAQUIN PO SCH (12:59)
--- NOTE | 2017-01-03 23:04 | Progress Note ---
Assessment and Plan Assessment and plan: The patient is a 46-year-old woman with history of insulin-dependent diabetes mellitus, hypertension, recent SAH and dyslipidemia who presented with DKA, AMS and STEMI with V. fib arrest requiring IV amiodarone suppression. she was intubated and subsequently extubated. she was treated with IV insulin drip for documented DKA without ketones documentation but she was acidotic on admission and pressors but subsequently weaned off and transferred to the medical floor. Uncontrolled DM -Labile -CONTINUE CARB CONSISTENT DIET -70/30 10 units bid. Continue sliding scale Monitor but decrease to low dose scale due to recurrent hypoglycemia Acute hypoxic respiratory failure. Resolved. Now extubated, stable right upper lobe opacity. AWAITING PATHOLOGY FROM [facility]. cytology showing no malignant cells, Spesis secondary to Possible aspiration penumonitis. Inital BCX with coagulase negative staff, 1/2 bottles ?contaminate Repeat cultures, no growth. Discontinue abx Priliminary cultures still growing Gram positive Cocci, GNR on verbal report from nursing staff from [facility], Continue Levaquin. Pt initially completed 7 days. No new fever. Severe Metabolic acidosis Resolved. Neprhology following Cardiac arrest with PEA arrest-->V. fib/?torsades was shocked twice - Likely from hyperkalemia, currently patient is stable. Was treated with amiodarone -Echo EF 40-45% - No recurrence Acute kidney injury secondary to ATN - Nephrology is following. HD Held ASHELY improving. Cr 2.3 for past 3 days NOW 1.5. NO FURTHER NEED FOR DIALYSIS Hyperkalemia- Give Kayxalate. Malnutrition- Moderate: Nutrition consult DKA: - resolved - On sliding insulin Acute metabolic encephalopathy, resolved Nstemi Type 2- Likely from Shock. Moderate protein calorie malnutrition Thrombocytopenia - Resolved Acute on chronic anemia of chronic disease, s/p total 4 units PRBC this admission - hgb dropped to 6.8. Will transfuse one unit and recheck. Recommend outpatient GI evaluation-Discussed in detail with the patient. Depression - Psych consulted and recommend outpatient mental health follow up. Disposition -PENDING PATHOLOGY -DVT prophylaxis: SCDs only due to recent SAH History Interval history: Patient seen and examined, denies any new complaints, No new complaints. no cough, no shortness of breath and no Melna, hematuria or BRBPR Hospitalist Physical - Physical exam Narrative exam: VITAL SIGNS: Reviewed. GENERAL: The patient appeared normally developed, cachetic. Vital signs as documented. HEAD: No signs of head trauma. temporal wasting noted EYES: Pupils are equal. Extraocular motions intact. EARS: Hearing grossly intact. MOUTH: Oropharynx is normal. NECK: No adenopathy, no JVD. CHEST: Chest with diminshed breath sounds bilaterally. No wheezes, rales, or rhonchi CARDIAC: Regular rate and rhythm. S1 and S2, without murmurs, gallops, or rubs. VASCULAR: Trace Edema. Peripheral pulses normal and equal in all extremities. ABDOMEN: Soft, without detectable tenderness. No sign of distention. No rebound or guarding, and no masses palpated. Bowel Sounds normal. MUSCULOSKELETAL: Good range of motion of all major joints. Extremities without clubbing, cyanosis. Trace edema. NEUROLOGIC EXAM: Alert and oriented x 3. No focal sensory or strength deficits. Speech normal. Follows commands. PSYCHIATRIC: Mood normal. SKIN: No rash or lesions. - Constitutional Vitals: Temp Pulse Resp BP Pulse Ox 98.3 F 94 H 18 148/90 97 01/03/17 19:55 01/03/17 22:34 01/03/17 19:55 01/03/17 22:34 01/03/17 19:55 General appearance: Present: no acute distress (resting comfortably) Results - Labs CBC & Chem 7: 01/03/17 07:20 01/03/17 07:20 Labs: Laboratory Last Values WBC 9.3 K/mm3 (4.5-11.0) 01/03/17 07:20 RBC 2.39 M/mm3 (3.65-5.03) L 01/03/17 07:20 Hgb 6.8 gm/dl (10.1-14.3) L 01/03/17 07:20 Hct 21.5 % (30.3-42.9) L 01/03/17 07:20 MCV 90 fl (79-97) 01/03/17 07:20 MCH 28 pg (28-32) 01/03/17 07:20 MCHC 32 % (30-34) 01/03/17 07:20 RDW 16.7 % (13.2-15.2) H 01/03/17 07:20 Plt Count 377 K/mm3 (140-440) 01/03/17 07:20 Lymph % (Auto) 8.1 % (13.4-35.0) L 12/22/16 06:45 Cameron % (Auto) 5.3 % (0.0-7.3) 12/22/16 06:45 Eos % (Auto) 1.4 % (0.0-4.3) 12/22/16 06:45 Baso % (Auto) 0.9 % (0.0-1.8) 12/22/16 06:45 Lymph # 1.4 K/mm3 (1.2-5.4) 12/22/16 06:45 Cameron # 0.9 K/mm3 (0.0-0.8) H 12/22/16 06:45 Eos # 0.2 K/mm3 (0.0-0.4) 12/22/16 06:45 Baso # 0.2 K/mm3 (0.0-0.1) H 12/22/16 06:45 Add Manual Diff Complete 12/13/16 07:49 Total Counted 100 12/13/16 07:49 Seg Neutrophils % 84.3 % (40.0-70.0) H 12/22/16 06:45 Seg Neuts % (Manual) 89.0 % (40.0-70.0) H 12/13/16 07:49 Band Neutrophils % 1.0 % 12/13/16 07:49 Lymphocytes % (Manual) 7.0 % (13.4-35.0) L 12/13/16 07:49 Reactive Lymphs % (Man) 0 % 12/13/16 07:49 Monocytes % (Manual) 3.0 % (0.0-7.3) 12/13/16 07:49 Eosinophils % (Manual) 0 % (0.0-4.3) 12/13/16 07:49 Basophils % (Manual) 0 % (0.0-1.8) 12/13/16 07:49 Metamyelocytes % 0 % 12/13/16 07:49 Myelocytes % 0 % 12/13/16 07:49 Promyelocytes % 0 % 12/13/16 07:49 Blast Cells % 0 % 12/13/16 07:49 Nucleated RBC % Not Reportable 12/13/16 07:49 Seg Neutrophils # 14.6 K/mm3 (1.8-7.7) H 12/22/16 06:45 Seg Neutrophils # Man 21.4 K/mm3 (1.8-7.7) H 12/13/16 07:49 Band Neutrophils # 0.2 K/mm3 12/13/16 07:49 Lymphocytes # (Manual) 1.7 K/mm3 (1.2-5.4) 12/13/16 07:49 Abs React Lymphs (Man) 0.0 K/mm3 12/13/16 07:49 Monocytes # (Manual) 0.7 K/mm3 (0.0-0.8) 12/13/16 07:49 Eosinophils # (Manual) 0.0 K/mm3 (0.0-0.4) 12/13/16 07:49 Basophils # (Manual) 0.0 K/mm3 (0.0-0.1) 12/13/16 07:49 Metamyelocytes # 0.0 K/mm3 12/13/16 07:49 Myelocytes # 0.0 K/mm3 12/13/16 07:49 Promyelocytes # 0.0 K/mm3 12/13/16 07:49 Blast Cells # 0.0 K/mm3 12/13/16 07:49 WBC Morphology Not Reportable 12/13/16 07:49 Hypersegmented Neuts Not Reportable 12/13/16 07:49 Hyposegmented Neuts Not Reportable 12/13/16 07:49 Hypogranular Neuts Not Reportable 12/13/16 07:49 Smudge Cells Not Reportable 12/13/16 07:49 Toxic Granulation Not Reportable 12/13/16 07:49 Toxic Vacuolation Not Reportable 12/13/16 07:49 Dohle Bodies Not Reportable 12/13/16 07:49 Pelger-Huet Anomaly Not Reportable 12/13/16 07:49 Mary Rods Not Reportable 12/13/16 07:49 Platelet Estimate Cons 12/13/16 07:49 Clumped Platelets Not Reportable 12/13/16 07:49 Plt Clumps, EDTA Not Reportable 12/13/16 07:49 Large Platelets Rare 12/13/16 07:49 Giant Platelets Not Reportable 12/13/16 07:49 Platelet Satelliting Not Reportable 12/13/16 07:49 Plt Morphology Comment Not Reportable 12/13/16 07:49 RBC Morphology Not Reportable 12/13/16 07:49 Dimorphic RBCs Not Reportable 12/13/16 07:49 Polychromasia Not Reportable 12/13/16 07:49 Hypochromasia 1+ 12/13/16 07:49 Poikilocytosis Not Reportable 12/13/16 07:49 Anisocytosis 1+ 12/13/16 07:49 Microcytosis Not Reportable 12/13/16 07:49 Macrocytosis Not Reportable 12/13/16 07:49 Spherocytes Not Reportable 12/13/16 07:49 Pappenheimer Bodies Not Reportable 12/13/16 07:49 Sickle Cells Not Reportable 12/13/16 07:49 Target Cells Few 12/13/16 07:49 Tear Drop Cells Not Reportable 12/13/16 07:49 Ovalocytes Not Reportable 12/13/16 07:49 Helmet Cells Not Reportable 12/13/16 07:49 Landers-Compo Bodies Not Reportable 12/13/16 07:49 Lincoln Rings Not Reportable 12/13/16 07:49 Deering Cells Not Reportable 12/13/16 07:49 Bite Cells Not Reportable 12/13/16 07:49 Crenated Cell Not Reportable 12/13/16 07:49 Elliptocytes Not Reportable 12/13/16 07:49 Acanthocytes (Spur) Not Reportable 12/13/16 07:49 Rouleaux Not Reportable 12/13/16 07:49 Hemoglobin C Crystals Not Reportable 12/13/16 07:49 Schistocytes Not Reportable 12/13/16 07:49 Malaria parasites Not Reportable 12/13/16 07:49 Percent Retic 0.23 % (0.78-2.58) L 12/09/16 11:29 Michael Bodies Not Reportable 12/13/16 07:49 Haptoglobin 271 mg/dL (43-212) H 12/08/16 21:30 Hem Pathologist Commnt No 12/13/16 07:49 PT 15.3 Sec. (12.2-14.9) H 12/08/16 19:00 INR 1.22 (0.87-1.13) H 12/08/16 19:00 APTT 36.2 Sec. (24.2-36.6) 12/08/16 19:00 Fibrinogen 563 mg/dl (211-480) H 12/08/16 19:00 D-Dimer 5507.36 ng/mlDDU (0-234) H 12/08/16 19:00 Heparin Anti-Xa, Unfract Negative (Negative) 12/09/16 13:27 POC ABG pH 7.326 (7.35-7.45) L 12/09/16 12:02 POC ABG pCO2 37.7 (35-45) 12/09/16 12:02 POC ABG pO2 115 (80-105) H 12/09/16 12:02 POC ABG HCO3 19.7 12/09/16 12:02 POC ABG Total CO2 21 12/09/16 12:02 POC ABG O2 Sat 98 12/09/16 12:02 POC ABG Base Excess -6 12/09/16 12:02 FiO2 30 % 12/09/16 12:02 Sodium 137 mmol/L (137-145) 01/03/17 07:20 Potassium 4.6 mmol/L (3.6-5.0) 01/03/17 07:20 Chloride 110.5 mmol/L (98-107) H 01/03/17 07:20 Carbon Dioxide 22 mmol/L (22-30) 01/03/17 07:20 Anion Gap 9 mmol/L 01/03/17 07:20 BUN 17 mg/dL (7-17) 01/03/17 07:20 Creatinine 1.5 mg/dL (0.7-1.2) H 01/03/17 07:20 Estimated GFR 45 ml/min 01/03/17 07:20 BUN/Creatinine Ratio 11.33 % 01/03/17 07:20 Glucose 327 mg/dL (65-100) H 01/03/17 07:20 POC Glucose 55 (70-105) L 01/03/17 21:29 Lactic Acid 6.90 mmol/L (0.7-2.0) H* 12/07/16 07:30 Calcium 7.3 mg/dL (8.4-10.2) L 01/03/17 07:20 Phosphorus 2.60 mg/dL (2.5-4.5) 12/26/16 Unknown Magnesium 1.40 mg/dL (1.7-2.3) L 01/01/17 01:46 Iron 66 ug/dL (37-170) 12/21/16 05:00 TIBC 193.20 mcg/dL (250-450) L 12/21/16 05:00 Transferrin 138 mg/dl (192-382) L 12/21/16 05:00 Ferritin 321.4 ng/mL (13.0-400.0) 12/21/16 05:00 Total Bilirubin 1.40 mg/dL (0.1-1.2) H 12/07/16 21:35 Direct Bilirubin 0.9 mg/dL (0-0.2) H 12/07/16 21:35 Indirect Bilirubin 0.5 mg/dL 12/07/16 21:35 AST 94 units/L (5-40) H 12/07/16 21:35 ALT 142 units/L (7-56) H 12/07/16 21:35 Alkaline Phosphatase 249 units/L (35-129) H 12/07/16 21:35 Lactate Dehydrogenase 382 units/L (91-180) H 12/08/16 19:00 Total Creatine Kinase 123 units/L (30-135) 12/04/16 09:55 CK-MB (CK-2) 4.6 ng/mL (0.0-4.0) H 12/04/16 09:55 CK-MB (CK-2) Rel Index 3.7 (0-4) 12/04/16 09:55 Troponin T 0.140 ng/mL (0.00-0.029) H* D 12/04/16 09:55 C-Reactive Protein 39.40 mg/dL (0.00-1.30) H 12/07/16 06:00 Total Protein 4.6 g/dL (6.3-8.2) L D 12/07/16 21:35 Albumin 2.1 g/dL (3.9-5) L 12/07/16 21:35 Albumin/Globulin Ratio 0.8 % 12/07/16 21:35 Triglycerides 570 mg/dL (2-149) H 12/04/16 07:55 Cholesterol 221 mg/dL (50-199) H 12/04/16 07:55 LDL Cholesterol Direct TNR 12/04/16 07:55 HDL Cholesterol 37 mg/dL (40-59) L 12/04/16 07:55 Cholesterol/HDL Ratio 5.97 % 12/04/16 07:55 Serotonin Release Assay See scanned report 12/09/16 13:27 Vitamin B12 > 2000 pg/mL (211-911) H 12/09/16 13:27 Folate 8.10 ng/mL (7.3-26.0) 12/09/16 13:27 TSH 1.600 mlU/mL (0.270-4.200) 12/03/16 23:20 Urine Color Yellow (Yellow) 12/04/16 11:25 Urine Turbidity Slightly-cloudy (Clear) 12/04/16 11:25 Urine pH 5.0 (5.0-7.0) 12/04/16 11:25 Ur Specific [place] 1.018 (1.003-1.030) 12/04/16 11:25 Urine Protein 30 mg/dl mg/dL (Negative) 12/04/16 11:25 Urine Glucose (UA) >=500 mg/dL (Negative) 12/04/16 11:25 Urine Ketones Tr mg/dL (Negative) 12/04/16 11:25 Urine Blood Sm (Negative) 12/04/16 11:25 Urine Nitrite Neg (Negative) 12/04/16 11:25 Urine Bilirubin Neg (Negative) 12/04/16 11:25 Urine Urobilinogen < 2.0 mg/dL (<2.0) 12/04/16 11:25 Ur Leukocyte Esterase Neg (Negative) 12/04/16 11:25 Urine WBC (Auto) 4.0 /HPF (0.0-6.0) 12/04/16 11:25 Urine RBC (Auto) 2.0 /HPF (0.0-6.0) 12/04/16 11:25 U Epithel Cells (Auto) < 1.0 /HPF (0-13.0) 12/04/16 11:25 Urine Mucus Few /HPF 12/04/16 11:25 Urine Osmolality 419 Mosm/kg 12/04/16 11:25 Urine Total Volume 200 12/24/16 00:00 Urine Creatinine 239.9 mg/dL (0.1-20.0) H 12/24/16 00:00 Height (in) 64.0 inches 12/24/16 00:00 Weight (lb) 114.0 lbs 12/24/16 00:00 Creatinine Clearance 12 12/24/16 00:00 Protein/Creatinin Ratio 1.12 12/04/16 11:25 Urine Sodium 26 mEq/L 12/04/16 11:25 Urine Total Protein 33 mg/dL (5-11.8) H 12/04/16 11:25 Urine Opiates Screen Presumptive negative 12/04/16 11:25 Urine Methadone Screen Presumptive negative 12/04/16 11:25 Ur Barbiturates Screen Presumptive negative 12/04/16 11:25 Ur Phencyclidine Scrn Presumptive negative 12/04/16 11:25 Ur Amphetamines Screen Presumptive negative 12/04/16 11:25 U Benzodiazepines Scrn Presumptive negative 12/04/16 11:25 Urine Cocaine Screen Presumptive negative 12/04/16 11:25 U Marijuana (THC) Screen Presumptive positive 12/04/16 11:25 Drugs of Abuse Note Disclamer 12/04/16 11:25 Heparin-induced Plt Ab Weak positive (Negative) H 12/09/16 13:27 UF Heparin High Dose 0 % Release 12/09/16 13:27 ADRIENNE UFH Low Dose 0.1 0 % Release 12/09/16 13:27 ADRIENNE UFH Low Dose 0.5 0 % Release 12/09/16 13:27 Hep Bs Antigen Non-reactive (Negative) 12/09/16 13:27 Hep Bs Antibody, Quant <5 mIU/mL (>=10) L 12/09/16 13:27 Hep B Core Total Ab Nonreactive (Nonreactive) 12/09/16 13:27 Hepatitis C Antibody Non-reactive (NonReactive) 12/09/16 13:27 HIV 1&2 Antibody Rapid Non react (Non React) 12/09/16 13:27 HIV P24 Antigen Non react (Non React) 12/09/16 13:27 Schistocytes Smear None seen 12/09/16 11:29 Blood Type O POSITIVE 01/03/17 12:30 Antibody Screen TNR 01/03/17 12:30 ISAIAH Antibody Screen Negative 01/03/17 12:30 Crossmatch See Detail 01/03/17 12:30
--- NOTE | 2017-01-03 23:44 | Progress Note ---
Assessment and Plan Patient alert, awake. No acute respiratory distres. Chest xray reported stable right upper lobe infiltrate and improving atelectasis right lower lobe.CAT scan reported persistent right upper lobe Opacity. Patient undergone Bronchoscopy . No endobronchial lesion seen.Bronchoscopy specimen results pending. Resting on room air. O2 saturation 97%. - Patient Problems (1) DKA (diabetic ketoacidoses) Current Visit: Yes Status: Acute Qualifiers: Diabetes mellitus type: type 1 Diabetes mellitus complication detail: without coma Diabetes mellitus half-way insulin use: D Qualified Code(s): E10.10 - Type 1 diabetes mellitus with ketoacidosis without coma Plan to address problem: Patient is on S/C insulin. Patient alert, awake. DKA improved. Management as per primary care. (2) Metabolic encephalopathy Current Visit: Yes Status: Acute Plan to address problem: Patient alert, awake, following commands. Appears encephalopathy improving. Management as per primary care. (3) Pulmonary infiltrate in right lung on chest x-ray Current Visit: Yes Status: Acute Plan to address problem: Patient off the Antibiotics. Patients chest xray stable right upper lobe infiltrate and improving right lower lobe atelectasis. Obtaining CAT scan of chest with out contrast reported persistent right upper lobe opacity. Patient undergone bronchoscopy.Bronchoscopy specimen results pending.. Subjective Date of service: 01/03/17 Principal diagnosis: Sepsis; Pneumonia; ASHELY on dialysis; Diabetes Interval history: Patient alert, awake. No acute respiratory distress.. Chest xray reported stable right upper lobe infiltrate and improving atelectasis right lower lobe.CT of chest reported right upper lobe Persistent Opacity. Patient undergone Bronchoscopy . No endobronchial lesion seen.Bronchoscopy specimen results pending. Resting on room air. O2 saturation 97%. Objective Vital Signs - 12hr 01/03/17 01/03/17 01/03/17 13:25 15:41 15:47 Temperature 98.3 F 97.7 F 98.4 F Pulse Rate 78 84 95 H Respiratory 20 20 20 Rate Blood Pressure 123/64 136/78 124/82 O2 Sat by Pulse 100 Oximetry 01/03/17 01/03/17 01/03/17 16:02 16:22 16:32 Temperature 98.8 F 98.6 F Pulse Rate 91 H 93 H Respiratory 15 15 16 Rate Blood Pressure 137/91 155/108 O2 Sat by Pulse Oximetry 01/03/17 01/03/17 01/03/17 16:39 17:02 17:32 Temperature 98.7 F 98.5 F 98.5 F Pulse Rate 93 H 101 H 96 H Respiratory 16 20 16 Rate Blood Pressure 137/91 156/103 156/103 O2 Sat by Pulse 98 Oximetry 01/03/17 01/03/17 01/03/17 18:02 19:55 22:34 Temperature 98.5 F 98.3 F Pulse Rate 101 H 94 H 94 H Respiratory 20 18 Rate Blood Pressure 156/103 148/90 148/90 O2 Sat by Pulse 97 Oximetry Constitutional: no acute distress, alert Eyes: non-icteric ENT: oropharynx moist Neck: supple, no lymphadenopathy Effort: normal Ascultation: Right: rhonchi, Bilateral: diminished breath sounds, rales (scant) Cardiovascular: regular rate and rhythm Gastrointestinal: normoactive bowel sounds, soft, non-tender, non-distended Integumentary: normal Extremities: no cyanosis, no edema, pulses normal, no ischemia or petechiae Neurologic: normal mental status, non-focal exam, pupils equal and round, motor strength normal and Psychiatric: mood appropriate, affect normal CBC and BMP: 01/03/17 07:20 01/03/17 07:20 ABG, PT/INR, D-dimer: ABG POC ABG pH 7.326 (7.35-7.45) L 12/09/16 12:02 POC ABG pCO2 37.7 (35-45) 12/09/16 12:02 POC ABG pO2 115 (80-105) H 12/09/16 12:02 POC ABG HCO3 19.7 12/09/16 12:02 POC ABG Total CO2 21 12/09/16 12:02 POC ABG O2 Sat 98 12/09/16 12:02 PT/INR, D-dimer PT 15.3 Sec. (12.2-14.9) H 12/08/16 19:00 INR 1.22 (0.87-1.13) H 12/08/16 19:00 D-Dimer 5507.36 ng/mlDDU (0-234) H 12/08/16 19:00 Abnormal lab findings: Abnormal Labs 12/04/16 12/04/16 12/04/16 01:19 01:36 02:21 WBC RBC Hgb Hct MCV MCHC RDW Plt Count Lymph % (Auto) [place] % (Auto) [place] # Baso # Seg Neutrophils % Seg Neuts % (Manual) Lymphocytes % (Manual) Monocytes % (Manual) Nucleated RBC % Seg Neutrophils # Seg Neutrophils # Man Lymphocytes # (Manual) Monocytes # (Manual) Percent Retic Haptoglobin PT INR Fibrinogen D-Dimer POC ABG pH 6.759 L POC ABG pCO2 POC ABG pO2 437 H Sodium Potassium Chloride Carbon Dioxide BUN Creatinine Glucose POC Glucose > 500 H Lactic Acid Calcium Phosphorus 15.70 H Magnesium 4.30 H Iron TIBC Transferrin Total Bilirubin Direct Bilirubin AST ALT Alkaline Phosphatase Lactate Dehydrogenase CK-MB (CK-2) Troponin T C-Reactive Protein Total Protein Albumin Triglycerides Cholesterol HDL Cholesterol Vitamin B12 Urine Creatinine Urine Total Protein Heparin-induced Plt Ab Hep Bs Antibody, Quant Crossmatch 12/04/16 12/04/16 12/04/16 03:55 04:00 05:11 WBC RBC Hgb Hct MCV MCHC RDW Plt Count Lymph % (Auto) [place] % (Auto) [place] # Baso # Seg Neutrophils % Seg Neuts % (Manual) Lymphocytes % (Manual) Monocytes % (Manual) Nucleated RBC % Seg Neutrophils # Seg Neutrophils # Man Lymphocytes # (Manual) Monocytes # (Manual) Percent Retic Haptoglobin PT INR Fibrinogen D-Dimer POC ABG pH POC ABG pCO2 POC ABG pO2 Sodium Potassium Chloride 91.4 L Carbon Dioxide 8 L* BUN 55 H Creatinine 2.8 H Glucose 1610 H* POC Glucose > 500 H > 500 H Lactic Acid Calcium Phosphorus Magnesium Iron TIBC Transferrin Total Bilirubin Direct Bilirubin AST ALT Alkaline Phosphatase Lactate Dehydrogenase CK-MB (CK-2) Troponin T C-Reactive Protein Total Protein Albumin Triglycerides Cholesterol HDL Cholesterol Vitamin B12 Urine Creatinine Urine Total Protein Heparin-induced Plt Ab Hep Bs Antibody, Quant Crossmatch 12/04/16 12/04/16 12/04/16 05:40 05:54 06:58 WBC RBC Hgb Hct MCV MCHC RDW Plt Count Lymph % (Auto) [place] % (Auto) [place] # Baso # Seg Neutrophils % Seg Neuts % (Manual) Lymphocytes % (Manual) Monocytes % (Manual) Nucleated RBC % Seg Neutrophils # Seg Neutrophils # Man Lymphocytes # (Manual) Monocytes # (Manual) Percent Retic Haptoglobin PT INR Fibrinogen D-Dimer POC ABG pH 7.154 L POC ABG pCO2 27.5 L POC ABG pO2 111 H Sodium Potassium Chloride Carbon Dioxide BUN Creatinine Glucose POC Glucose > 500 H > 500 H Lactic Acid Calcium Phosphorus Magnesium Iron TIBC Transferrin Total Bilirubin Direct Bilirubin AST ALT Alkaline Phosphatase Lactate Dehydrogenase CK-MB (CK-2) Troponin T C-Reactive Protein Total Protein Albumin Triglycerides Cholesterol HDL Cholesterol Vitamin B12 Urine Creatinine Urine Total Protein Heparin-induced Plt Ab Hep Bs Antibody, Quant Crossmatch 12/04/16 12/04/16 12/04/16 07:49 07:55 07:55 WBC RBC Hgb Hct MCV MCHC RDW Plt Count Lymph % (Auto) [place] % (Auto) [place] # Baso # Seg Neutrophils % Seg Neuts % (Manual) Lymphocytes % (Manual) Monocytes % (Manual) Nucleated RBC % Seg Neutrophils # Seg Neutrophils # Man Lymphocytes # (Manual) Monocytes # (Manual) Percent Retic Haptoglobin PT INR Fibrinogen D-Dimer POC ABG pH POC ABG pCO2 POC ABG pO2 Sodium Potassium 3.3 L Chloride Carbon Dioxide 9 L* BUN 53 H Creatinine 2.9 H Glucose 1229 H* POC Glucose > 500 H Lactic Acid Calcium Phosphorus Magnesium Iron TIBC Transferrin Total Bilirubin Direct Bilirubin AST ALT Alkaline Phosphatase Lactate Dehydrogenase CK-MB (CK-2) Troponin T 0.111 H* D C-Reactive Protein Total Protein Albumin Triglycerides 570 H Cholesterol 221 H HDL Cholesterol 37 L Vitamin B12 Urine Creatinine Urine Total Protein Heparin-induced Plt Ab Hep Bs Antibody, Quant Crossmatch 12/04/16 12/04/16 12/04/16 07:55 09:55 09:55 WBC RBC 2.90 L Hgb 8.5 L Hct 30.2 L D MCV 105 H D MCHC 28 L RDW 19.2 H Plt Count Lymph % (Auto) [place] % (Auto) [place] # Baso # Seg Neutrophils % Seg Neuts % (Manual) Lymphocytes % (Manual) 11.0 L Monocytes % (Manual) Nucleated RBC % Seg Neutrophils # Seg Neutrophils # Man Lymphocytes # (Manual) 0.6 L Monocytes # (Manual) Percent Retic Haptoglobin PT INR Fibrinogen D-Dimer POC ABG pH POC ABG pCO2 POC ABG pO2 Sodium Potassium 3.1 L Chloride Carbon Dioxide 7 L* BUN 51 H Creatinine 3.2 H Glucose 969 H* POC Glucose Lactic Acid Calcium 10.4 H D Phosphorus Magnesium Iron TIBC Transferrin Total Bilirubin Direct Bilirubin AST ALT Alkaline Phosphatase Lactate Dehydrogenase CK-MB (CK-2) 4.6 H Troponin T 0.140 H* D C-Reactive Protein Total Protein Albumin Triglycerides Cholesterol HDL Cholesterol Vitamin B12 Urine Creatinine Urine Total Protein Heparin-induced Plt Ab Hep Bs Antibody, Quant Crossmatch 12/04/16 12/04/16 12/04/16 09:55 10:37 11:25 WBC RBC Hgb Hct MCV MCHC RDW Plt Count Lymph % (Auto) [place] % (Auto) [place] # Baso # Seg Neutrophils % Seg Neuts % (Manual) Lymphocytes % (Manual) Monocytes % (Manual) Nucleated RBC % Seg Neutrophils # Seg Neutrophils # Man Lymphocytes # (Manual) Monocytes # (Manual) Percent Retic Haptoglobin PT INR Fibrinogen D-Dimer POC ABG pH 7.215 L POC ABG pCO2 18.8 L POC ABG pO2 193 H Sodium Potassium Chloride Carbon Dioxide BUN Creatinine Glucose POC Glucose Lactic Acid Calcium Phosphorus Magnesium 3.70 H Iron TIBC Transferrin Total Bilirubin Direct Bilirubin AST ALT Alkaline Phosphatase Lactate Dehydrogenase CK-MB (CK-2) Troponin T C-Reactive Protein Total Protein Albumin Triglycerides Cholesterol HDL Cholesterol Vitamin B12 Urine Creatinine 29.5 H Urine Total Protein 33 H Heparin-induced Plt Ab Hep Bs Antibody, Quant Crossmatch 12/04/16 12/04/16 12/04/16 12:00 12:48 13:00 WBC RBC Hgb Hct MCV MCHC RDW Plt Count Lymph % (Auto) [place] % (Auto) [place] # Baso # Seg Neutrophils % Seg Neuts % (Manual) Lymphocytes % (Manual) Monocytes % (Manual) Nucleated RBC % Seg Neutrophils # Seg Neutrophils # Man Lymphocytes # (Manual) Monocytes # (Manual) Percent Retic Haptoglobin PT INR Fibrinogen D-Dimer POC ABG pH POC ABG pCO2 POC ABG pO2 Sodium 149 H 150 H Potassium 3.2 L 3.2 L Chloride 109.1 H Carbon Dioxide 8 L* 8 L* BUN 52 H 49 H Creatinine 3.4 H 3.1 H Glucose 723 H* 574 H* POC Glucose Lactic Acid 18.80 H* Calcium Phosphorus Magnesium Iron TIBC Transferrin Total Bilirubin Direct Bilirubin AST ALT Alkaline Phosphatase Lactate Dehydrogenase CK-MB (CK-2) Troponin T C-Reactive Protein Total Protein Albumin Triglycerides Cholesterol HDL Cholesterol Vitamin B12 Urine Creatinine Urine Total Protein Heparin-induced Plt Ab Hep Bs Antibody, Quant Crossmatch 12/04/16 12/04/16 12/04/16 13:01 14:41 16:06 WBC RBC Hgb Hct MCV MCHC RDW Plt Count Lymph % (Auto) [place] % (Auto) [place] # Baso # Seg Neutrophils % Seg Neuts % (Manual) Lymphocytes % (Manual) Monocytes % (Manual) Nucleated RBC % Seg Neutrophils # Seg Neutrophils # Man Lymphocytes # (Manual) Monocytes # (Manual) Percent Retic Haptoglobin PT INR Fibrinogen D-Dimer POC ABG pH POC ABG pCO2 POC ABG pO2 Sodium 151 H Potassium 3.2 L Chloride 108.1 H Carbon Dioxide 10 L BUN 49 H Creatinine 3.0 H Glucose 383 H POC Glucose 292 H Lactic Acid Calcium Phosphorus Magnesium Iron TIBC Transferrin Total Bilirubin Direct Bilirubin AST ALT Alkaline Phosphatase Lactate Dehydrogenase CK-MB (CK-2) Troponin T C-Reactive Protein 3.50 H Total Protein Albumin Triglycerides Cholesterol HDL Cholesterol Vitamin B12 Urine Creatinine Urine Total Protein Heparin-induced Plt Ab Hep Bs Antibody, Quant Crossmatch 12/04/16 12/04/16 12/04/16 17:15 17:25 18:07 WBC RBC Hgb Hct MCV MCHC RDW Plt Count Lymph % (Auto) [place] % (Auto) [place] # Baso # Seg Neutrophils % Seg Neuts % (Manual) Lymphocytes % (Manual) Monocytes % (Manual) Nucleated RBC % Seg Neutrophils # Seg Neutrophils # Man Lymphocytes # (Manual) Monocytes # (Manual) Percent Retic Haptoglobin PT INR Fibrinogen D-Dimer POC ABG pH 7.255 L POC ABG pCO2 16.9 L POC ABG pO2 169 H Sodium Potassium Chloride Carbon Dioxide BUN Creatinine Glucose POC Glucose 246 H Lactic Acid 18.50 H* Calcium Phosphorus Magnesium Iron TIBC Transferrin Total Bilirubin Direct Bilirubin AST ALT Alkaline Phosphatase Lactate Dehydrogenase CK-MB (CK-2) Troponin T C-Reactive Protein Total Protein Albumin Triglycerides Cholesterol HDL Cholesterol Vitamin B12 Urine Creatinine Urine Total Protein Heparin-induced Plt Ab Hep Bs Antibody, Quant Crossmatch 12/04/16 12/04/16 12/04/16 19:34 20:31 21:15 WBC RBC Hgb Hct MCV MCHC RDW Plt Count Lymph % (Auto) [place] % (Auto) [place] # Baso # Seg Neutrophils % Seg Neuts % (Manual) Lymphocytes % (Manual) Monocytes % (Manual) Nucleated RBC % Seg Neutrophils # Seg Neutrophils # Man Lymphocytes # (Manual) Monocytes # (Manual) Percent Retic Haptoglobin PT INR Fibrinogen D-Dimer POC ABG pH POC ABG pCO2 POC ABG pO2 Sodium Potassium Chloride Carbon Dioxide BUN Creatinine Glucose POC Glucose 189 H 126 H 139 H Lactic Acid Calcium Phosphorus Magnesium Iron TIBC Transferrin Total Bilirubin Direct Bilirubin AST ALT Alkaline Phosphatase Lactate Dehydrogenase CK-MB (CK-2) Troponin T C-Reactive Protein Total Protein Albumin Triglycerides Cholesterol HDL Cholesterol Vitamin B12 Urine Creatinine Urine Total Protein Heparin-induced Plt Ab Hep Bs Antibody, Quant Crossmatch 12/04/16 12/04/16 12/04/16 21:25 22:37 23:35 WBC RBC Hgb Hct MCV MCHC RDW Plt Count Lymph % (Auto) [place] % (Auto) [place] # Baso # Seg Neutrophils % Seg Neuts % (Manual) Lymphocytes % (Manual) Monocytes % (Manual) Nucleated RBC % Seg Neutrophils # Seg Neutrophils # Man Lymphocytes # (Manual) Monocytes # (Manual) Percent Retic Haptoglobin PT INR Fibrinogen D-Dimer POC ABG pH 7.294 L POC ABG pCO2 16.7 L POC ABG pO2 169 H Sodium Potassium Chloride Carbon Dioxide BUN Creatinine Glucose POC Glucose 131 H 106 H Lactic Acid Calcium Phosphorus Magnesium Iron TIBC Transferrin Total Bilirubin Direct Bilirubin AST ALT Alkaline Phosphatase Lactate Dehydrogenase CK-MB (CK-2) Troponin T C-Reactive Protein Total Protein Albumin Triglycerides Cholesterol HDL Cholesterol Vitamin B12 Urine Creatinine Urine Total Protein Heparin-induced Plt Ab Hep Bs Antibody, Quant Crossmatch 12/05/16 12/05/16 12/05/16 02:40 02:50 02:50 WBC RBC Hgb Hct MCV MCHC RDW Plt Count Lymph % (Auto) [place] % (Auto) [place] # Baso # Seg Neutrophils % Seg Neuts % (Manual) Lymphocytes % (Manual) Monocytes % (Manual) Nucleated RBC % Seg Neutrophils # Seg Neutrophils # Man Lymphocytes # (Manual) Monocytes # (Manual) Percent Retic Haptoglobin PT INR Fibrinogen D-Dimer POC ABG pH POC ABG pCO2 POC ABG pO2 Sodium 151 H Potassium Chloride 113.8 H Carbon Dioxide 12 L BUN 46 H Creatinine 3.2 H Glucose 165 H POC Glucose 109 H Lactic Acid 9.80 H* Calcium 8.3 L Phosphorus Magnesium Iron TIBC Transferrin Total Bilirubin Direct Bilirubin AST ALT Alkaline Phosphatase Lactate Dehydrogenase CK-MB (CK-2) Troponin T C-Reactive Protein Total Protein Albumin Triglycerides Cholesterol HDL Cholesterol Vitamin B12 Urine Creatinine Urine Total Protein Heparin-induced Plt Ab Hep Bs Antibody, Quant Crossmatch 12/05/16 12/05/16 12/05/16 04:01 04:30 04:30 WBC 19.1 H RBC 2.91 L Hgb 8.0 L Hct 25.4 L MCV MCHC RDW 17.8 H Plt Count Lymph % (Auto) [place] % (Auto) [place] # Baso # Seg Neutrophils % Seg Neuts % (Manual) 17.0 L Lymphocytes % (Manual) 7.0 L Monocytes % (Manual) Nucleated RBC % 3.0 H Seg Neutrophils # Seg Neutrophils # Man Lymphocytes # (Manual) Monocytes # (Manual) Percent Retic Haptoglobin PT INR Fibrinogen D-Dimer POC ABG pH POC ABG pCO2 POC ABG pO2 Sodium 152 H Potassium Chloride 113.5 H Carbon Dioxide 12 L BUN 47 H Creatinine 3.2 H Glucose 133 H POC Glucose 179 H Lactic Acid Calcium 8.3 L Phosphorus 1.00 L D Magnesium Iron TIBC Transferrin Total Bilirubin Direct Bilirubin AST ALT Alkaline Phosphatase Lactate Dehydrogenase CK-MB (CK-2) Troponin T C-Reactive Protein Total Protein Albumin Triglycerides Cholesterol HDL Cholesterol Vitamin B12 Urine Creatinine Urine Total Protein Heparin-induced Plt Ab Hep Bs Antibody, Quant Crossmatch 12/05/16 12/05/16 12/05/16 05:32 08:01 08:48 WBC RBC Hgb Hct MCV MCHC RDW Plt Count Lymph % (Auto) [place] % (Auto) [place] # Baso # Seg Neutrophils % Seg Neuts % (Manual) Lymphocytes % (Manual) Monocytes % (Manual) Nucleated RBC % Seg Neutrophils # Seg Neutrophils # Man Lymphocytes # (Manual) Monocytes # (Manual) Percent Retic Haptoglobin PT INR Fibrinogen D-Dimer POC ABG pH POC ABG pCO2 17.6 L POC ABG pO2 62 L Sodium Potassium Chloride Carbon Dioxide BUN Creatinine Glucose POC Glucose 126 H 130 H Lactic Acid Calcium Phosphorus Magnesium Iron TIBC Transferrin Total Bilirubin Direct Bilirubin AST ALT Alkaline Phosphatase Lactate Dehydrogenase CK-MB (CK-2) Troponin T C-Reactive Protein Total Protein Albumin Triglycerides Cholesterol HDL Cholesterol Vitamin B12 Urine Creatinine Urine Total Protein Heparin-induced Plt Ab Hep Bs Antibody, Quant Crossmatch 12/05/16 12/05/16 12/05/16 08:54 12:01 15:15 WBC RBC Hgb Hct MCV MCHC RDW Plt Count Lymph % (Auto) [place] % (Auto) [place] # Baso # Seg Neutrophils % Seg Neuts % (Manual) Lymphocytes % (Manual) Monocytes % (Manual) Nucleated RBC % Seg Neutrophils # Seg Neutrophils # Man Lymphocytes # (Manual) Monocytes # (Manual) Percent Retic Haptoglobin PT INR Fibrinogen D-Dimer POC ABG pH POC ABG pCO2 POC ABG pO2 Sodium Potassium Chloride Carbon Dioxide BUN Creatinine Glucose POC Glucose 157 H 117 H 166 H Lactic Acid Calcium Phosphorus Magnesium Iron TIBC Transferrin Total Bilirubin Direct Bilirubin AST ALT Alkaline Phosphatase Lactate Dehydrogenase CK-MB (CK-2) Troponin T C-Reactive Protein Total Protein Albumin Triglycerides Cholesterol HDL Cholesterol Vitamin B12 Urine Creatinine Urine Total Protein Heparin-induced Plt Ab Hep Bs Antibody, Quant Crossmatch 12/05/16 12/05/16 12/05/16 16:10 16:55 17:08 WBC RBC Hgb Hct MCV MCHC RDW Plt Count Lymph % (Auto) [place] % (Auto) [place] # Baso # Seg Neutrophils % Seg Neuts % (Manual) Lymphocytes % (Manual) Monocytes % (Manual) Nucleated RBC % Seg Neutrophils # Seg Neutrophils # Man Lymphocytes # (Manual) Monocytes # (Manual) Percent Retic Haptoglobin PT INR Fibrinogen D-Dimer POC ABG pH POC ABG pCO2 POC ABG pO2 Sodium Potassium Chloride Carbon Dioxide BUN Creatinine Glucose POC Glucose 178 H 169 H Lactic Acid Calcium Phosphorus 5.00 H D Magnesium Iron TIBC Transferrin Total Bilirubin Direct Bilirubin AST ALT Alkaline Phosphatase Lactate Dehydrogenase CK-MB (CK-2) Troponin T C-Reactive Protein Total Protein Albumin Triglycerides Cholesterol HDL Cholesterol Vitamin B12 Urine Creatinine Urine Total Protein Heparin-induced Plt Ab Hep Bs Antibody, Quant Crossmatch 12/05/16 12/05/16 12/05/16 18:08 18:51 20:04 WBC RBC Hgb Hct MCV MCHC RDW Plt Count Lymph % (Auto) [place] % (Auto) [place] # Baso # Seg Neutrophils % Seg Neuts % (Manual) Lymphocytes % (Manual) Monocytes % (Manual) Nucleated RBC % Seg Neutrophils # Seg Neutrophils # Man Lymphocytes # (Manual) Monocytes # (Manual) Percent Retic Haptoglobin PT INR Fibrinogen D-Dimer POC ABG pH POC ABG pCO2 POC ABG pO2 Sodium Potassium Chloride Carbon Dioxide BUN Creatinine Glucose POC Glucose 147 H 113 H 64 L Lactic Acid Calcium Phosphorus Magnesium Iron TIBC Transferrin Total Bilirubin Direct Bilirubin AST ALT Alkaline Phosphatase Lactate Dehydrogenase CK-MB (CK-2) Troponin T C-Reactive Protein Total Protein Albumin Triglycerides Cholesterol HDL Cholesterol Vitamin B12 Urine Creatinine Urine Total Protein Heparin-induced Plt Ab Hep Bs Antibody, Quant Crossmatch 12/05/16 12/05/16 12/05/16 21:34 22:08 23:19 WBC RBC Hgb Hct MCV MCHC RDW Plt Count Lymph % (Auto) [place] % (Auto) [place] # Baso # Seg Neutrophils % Seg Neuts % (Manual) Lymphocytes % (Manual) Monocytes % (Manual) Nucleated RBC % Seg Neutrophils # Seg Neutrophils # Man Lymphocytes # (Manual) Monocytes # (Manual) Percent Retic Haptoglobin PT INR Fibrinogen D-Dimer POC ABG pH 7.303 L POC ABG pCO2 18.3 L POC ABG pO2 73 L Sodium Potassium Chloride Carbon Dioxide BUN Creatinine Glucose POC Glucose 141 H 200 H Lactic Acid Calcium Phosphorus Magnesium Iron TIBC Transferrin Total Bilirubin Direct Bilirubin AST ALT Alkaline Phosphatase Lactate Dehydrogenase CK-MB (CK-2) Troponin T C-Reactive Protein Total Protein Albumin Triglycerides Cholesterol HDL Cholesterol Vitamin B12 Urine Creatinine Urine Total Protein Heparin-induced Plt Ab Hep Bs Antibody, Quant Crossmatch 12/06/16 12/06/16 12/06/16 00:01 01:09 02:00 WBC RBC Hgb Hct MCV MCHC RDW Plt Count Lymph % (Auto) [place] % (Auto) [place] # Baso # Seg Neutrophils % Seg Neuts % (Manual) Lymphocytes % (Manual) Monocytes % (Manual) Nucleated RBC % Seg Neutrophils # Seg Neutrophils # Man Lymphocytes # (Manual) Monocytes # (Manual) Percent Retic Haptoglobin PT INR Fibrinogen D-Dimer POC ABG pH POC ABG pCO2 POC ABG pO2 Sodium Potassium Chloride Carbon Dioxide BUN Creatinine Glucose POC Glucose 211 H 116 H 57 L Lactic Acid Calcium Phosphorus Magnesium Iron TIBC Transferrin Total Bilirubin Direct Bilirubin AST ALT Alkaline Phosphatase Lactate Dehydrogenase CK-MB (CK-2) Troponin T C-Reactive Protein Total Protein Albumin Triglycerides Cholesterol HDL Cholesterol Vitamin B12 Urine Creatinine Urine Total Protein Heparin-induced Plt Ab Hep Bs Antibody, Quant Crossmatch 12/06/16 12/06/16 12/06/16 04:14 04:50 04:50 WBC RBC 2.68 L Hgb 7.6 L Hct 23.2 L MCV MCHC RDW 18.9 H Plt Count Lymph % (Auto) [place] % (Auto) [place] # Baso # Seg Neutrophils % Seg Neuts % (Manual) 32.0 L Lymphocytes % (Manual) Monocytes % (Manual) Nucleated RBC % 3.0 H Seg Neutrophils # Seg Neutrophils # Man Lymphocytes # (Manual) 0.9 L Monocytes # (Manual) Percent Retic Haptoglobin PT INR Fibrinogen D-Dimer POC ABG pH POC ABG pCO2 POC ABG pO2 Sodium Potassium 5.8 H D Chloride 111.5 H Carbon Dioxide 11 L BUN 52 H Creatinine 3.8 H Glucose 186 H POC Glucose 133 H Lactic Acid Calcium 6.5 L D Phosphorus 5.80 H Magnesium Iron TIBC Transferrin Total Bilirubin Direct Bilirubin AST ALT Alkaline Phosphatase Lactate Dehydrogenase CK-MB (CK-2) Troponin T C-Reactive Protein Total Protein Albumin Triglycerides Cholesterol HDL Cholesterol Vitamin B12 Urine Creatinine Urine Total Protein Heparin-induced Plt Ab Hep Bs Antibody, Quant Crossmatch 12/06/16 12/06/16 12/06/16 04:50 05:04 05:07 WBC RBC Hgb Hct MCV MCHC RDW Plt Count Lymph % (Auto) [place] % (Auto) [place] # Baso # Seg Neutrophils % Seg Neuts % (Manual) Lymphocytes % (Manual) Monocytes % (Manual) Nucleated RBC % Seg Neutrophils # Seg Neutrophils # Man Lymphocytes # (Manual) Monocytes # (Manual) Percent Retic Haptoglobin PT INR Fibrinogen D-Dimer POC ABG pH POC ABG pCO2 13.0 L POC ABG pO2 111 H Sodium Potassium Chloride Carbon Dioxide BUN Creatinine Glucose POC Glucose 127 H Lactic Acid 6.50 H* Calcium Phosphorus Magnesium Iron TIBC Transferrin Total Bilirubin Direct Bilirubin AST ALT Alkaline Phosphatase Lactate Dehydrogenase CK-MB (CK-2) Troponin T C-Reactive Protein Total Protein Albumin Triglycerides Cholesterol HDL Cholesterol Vitamin B12 Urine Creatinine Urine Total Protein Heparin-induced Plt Ab Hep Bs Antibody, Quant Crossmatch 12/06/16 12/06/16 12/06/16 06:10 06:54 07:46 WBC RBC Hgb Hct MCV MCHC RDW Plt Count Lymph % (Auto) [place] % (Auto) [place] # Baso # Seg Neutrophils % Seg Neuts % (Manual) Lymphocytes % (Manual) Monocytes % (Manual) Nucleated RBC % Seg Neutrophils # Seg Neutrophils # Man Lymphocytes # (Manual) Monocytes # (Manual) Percent Retic Haptoglobin PT INR Fibrinogen D-Dimer POC ABG pH POC ABG pCO2 POC ABG pO2 Sodium Potassium Chloride Carbon Dioxide BUN Creatinine Glucose POC Glucose 219 H 237 H 158 H Lactic Acid Calcium Phosphorus Magnesium Iron TIBC Transferrin Total Bilirubin Direct Bilirubin AST ALT Alkaline Phosphatase Lactate Dehydrogenase CK-MB (CK-2) Troponin T C-Reactive Protein Total Protein Albumin Triglycerides Cholesterol HDL Cholesterol Vitamin B12 Urine Creatinine Urine Total Protein Heparin-induced Plt Ab Hep Bs Antibody, Quant Crossmatch 12/06/16 12/06/1617 08:55 10:27 11:58 WBC RBC Hgb Hct MCV MCHC RDW Plt Count Lymph % (Auto) [place] % (Auto) [place] # Baso # Seg Neutrophils % Seg Neuts % (Manual) Lymphocytes % (Manual) Monocytes % (Manual) Nucleated RBC % Seg Neutrophils # Seg Neutrophils # Man Lymphocytes # (Manual) Monocytes # (Manual) Percent Retic Haptoglobin PT INR Fibrinogen D-Dimer POC ABG pH POC ABG pCO2 POC ABG pO2 Sodium Potassium Chloride Carbon Dioxide BUN Creatinine Glucose POC Glucose 40 L 128 H 144 H Lactic Acid Calcium Phosphorus Magnesium Iron TIBC Transferrin Total Bilirubin Direct Bilirubin AST ALT Alkaline Phosphatase Lactate Dehydrogenase CK-MB (CK-2) Troponin T C-Reactive Protein Total Protein Albumin Triglycerides Cholesterol HDL Cholesterol Vitamin B12 Urine Creatinine Urine Total Protein Heparin-induced Plt Ab Hep Bs Antibody, Quant Crossmatch 12/06/16 12/06/16 12/06/16 18:14 19:00 19:06 WBC RBC Hgb Hct MCV MCHC RDW Plt Count Lymph % (Auto) [place] % (Auto) [place] # Baso # Seg Neutrophils % Seg Neuts % (Manual) Lymphocytes % (Manual) Monocytes % (Manual) Nucleated RBC % Seg Neutrophils # Seg Neutrophils # Man Lymphocytes # (Manual) Monocytes # (Manual) Percent Retic Haptoglobin PT INR Fibrinogen D-Dimer POC ABG pH POC ABG pCO2 POC ABG pO2 Sodium 149 H Potassium 5.6 H Chloride 115.9 H Carbon Dioxide 13 L BUN 56 H Creatinine 4.3 H Glucose 124 H POC Glucose 55 L 148 H Lactic Acid Calcium 6.0 L Phosphorus Magnesium Iron TIBC Transferrin Total Bilirubin Direct Bilirubin AST ALT Alkaline Phosphatase Lactate Dehydrogenase CK-MB (CK-2) Troponin T C-Reactive Protein Total Protein Albumin Triglycerides Cholesterol HDL Cholesterol Vitamin B12 Urine Creatinine Urine Total Protein Heparin-induced Plt Ab Hep Bs Antibody, Quant Crossmatch 12/06/16 12/06/16 12/07/16 21:24 21:51 02:32 WBC RBC Hgb Hct MCV MCHC RDW Plt Count Lymph % (Auto) [place] % (Auto) [place] # Baso # Seg Neutrophils % Seg Neuts % (Manual) Lymphocytes % (Manual) Monocytes % (Manual) Nucleated RBC % Seg Neutrophils # Seg Neutrophils # Man Lymphocytes # (Manual) Monocytes # (Manual) Percent Retic Haptoglobin PT INR Fibrinogen D-Dimer POC ABG pH POC ABG pCO2 17.0 L POC ABG pO2 142 H Sodium Potassium Chloride Carbon Dioxide BUN Creatinine Glucose POC Glucose 107 H 175 H Lactic Acid Calcium Phosphorus Magnesium Iron TIBC Transferrin Total Bilirubin Direct Bilirubin AST ALT Alkaline Phosphatase Lactate Dehydrogenase CK-MB (CK-2) Troponin T C-Reactive Protein Total Protein Albumin Triglycerides Cholesterol HDL Cholesterol Vitamin B12 Urine Creatinine Urine Total Protein Heparin-induced Plt Ab Hep Bs Antibody, Quant Crossmatch 12/07/16 12/07/16 12/07/16 05:01 05:25 06:00 WBC RBC 2.52 L Hgb 7.1 L Hct 22.1 L MCV MCHC RDW 19.3 H Plt Count 90 L Lymph % (Auto) [place] % (Auto) [place] # Baso # Seg Neutrophils % Seg Neuts % (Manual) 75.0 H Lymphocytes % (Manual) 11.0 L Monocytes % (Manual) Nucleated RBC % Seg Neutrophils # Seg Neutrophils # Man Lymphocytes # (Manual) 0.7 L Monocytes # (Manual) Percent Retic Haptoglobin PT INR Fibrinogen D-Dimer POC ABG pH 7.300 L POC ABG pCO2 17.1 L POC ABG pO2 140 H Sodium Potassium Chloride Carbon Dioxide BUN Creatinine Glucose POC Glucose 279 H Lactic Acid Calcium Phosphorus Magnesium Iron TIBC Transferrin Total Bilirubin Direct Bilirubin AST ALT Alkaline Phosphatase Lactate Dehydrogenase CK-MB (CK-2) Troponin T C-Reactive Protein Total Protein Albumin Triglycerides Cholesterol HDL Cholesterol Vitamin B12 Urine Creatinine Urine Total Protein Heparin-induced Plt Ab Hep Bs Antibody, Quant Crossmatch 12/07/16 12/07/16 12/07/16 06:00 06:00 07:30 WBC RBC Hgb Hct MCV MCHC RDW Plt Count Lymph % (Auto) [place] % (Auto) [place] # Baso # Seg Neutrophils % Seg Neuts % (Manual) Lymphocytes % (Manual) Monocytes % (Manual) Nucleated RBC % Seg Neutrophils # Seg Neutrophils # Man Lymphocytes # (Manual) Monocytes # (Manual) Percent Retic Haptoglobin PT INR Fibrinogen D-Dimer POC ABG pH POC ABG pCO2 POC ABG pO2 Sodium Potassium Chloride Carbon Dioxide BUN Creatinine Glucose POC Glucose Lactic Acid 6.90 H* Calcium Phosphorus 6.80 H Magnesium Iron TIBC Transferrin Total Bilirubin Direct Bilirubin AST ALT Alkaline Phosphatase Lactate Dehydrogenase CK-MB (CK-2) Troponin T C-Reactive Protein 39.40 H Total Protein Albumin Triglycerides Cholesterol HDL Cholesterol Vitamin B12 Urine Creatinine Urine Total Protein Heparin-induced Plt Ab Hep Bs Antibody, Quant Crossmatch 12/07/16 12/07/16 12/07/16 08:40 10:53 14:31 WBC RBC Hgb Hct MCV MCHC RDW Plt Count Lymph % (Auto) [place] % (Auto) [place] # Baso # Seg Neutrophils % Seg Neuts % (Manual) Lymphocytes % (Manual) Monocytes % (Manual) Nucleated RBC % Seg Neutrophils # Seg Neutrophils # Man Lymphocytes # (Manual) Monocytes # (Manual) Percent Retic Haptoglobin PT INR Fibrinogen D-Dimer POC ABG pH POC ABG pCO2 POC ABG pO2 Sodium Potassium 7.0 H* D Chloride 112.4 H Carbon Dioxide 8 L* BUN 61 H Creatinine 5.1 H Glucose 213 H POC Glucose 353 H 52 L Lactic Acid Calcium 5.8 L* Phosphorus Magnesium Iron TIBC Transferrin Total Bilirubin Direct Bilirubin AST ALT Alkaline Phosphatase Lactate Dehydrogenase CK-MB (CK-2) Troponin T C-Reactive Protein Total Protein Albumin Triglycerides Cholesterol HDL Cholesterol Vitamin B12 Urine Creatinine Urine Total Protein Heparin-induced Plt Ab Hep Bs Antibody, Quant Crossmatch 12/07/16 12/07/16 12/07/16 14:45 15:33 16:22 WBC RBC Hgb Hct MCV MCHC RDW Plt Count Lymph % (Auto) [place] % (Auto) [place] # Baso # Seg Neutrophils % Seg Neuts % (Manual) Lymphocytes % (Manual) Monocytes % (Manual) Nucleated RBC % Seg Neutrophils # Seg Neutrophils # Man Lymphocytes # (Manual) Monocytes # (Manual) Percent Retic Haptoglobin PT 17.5 H INR 1.44 H Fibrinogen D-Dimer POC ABG pH POC ABG pCO2 POC ABG pO2 Sodium Potassium Chloride Carbon Dioxide BUN Creatinine Glucose POC Glucose < 40 L 118 H Lactic Acid Calcium Phosphorus Magnesium Iron TIBC Transferrin Total Bilirubin Direct Bilirubin AST ALT Alkaline Phosphatase Lactate Dehydrogenase CK-MB (CK-2) Troponin T C-Reactive Protein Total Protein Albumin Triglycerides Cholesterol HDL Cholesterol Vitamin B12 Urine Creatinine Urine Total Protein Heparin-induced Plt Ab Hep Bs Antibody, Quant Crossmatch 12/07/16 12/07/16 12/07/16 21:35 21:35 21:58 WBC RBC Hgb Hct MCV MCHC RDW Plt Count Lymph % (Auto) [place] % (Auto) [place] # Baso # Seg Neutrophils % Seg Neuts % (Manual) Lymphocytes % (Manual) Monocytes % (Manual) Nucleated RBC % Seg Neutrophils # Seg Neutrophils # Man Lymphocytes # (Manual) Monocytes # (Manual) Percent Retic Haptoglobin PT INR Fibrinogen D-Dimer POC ABG pH POC ABG pCO2 POC ABG pO2 Sodium 150 H Potassium 3.3 L D Chloride 111.4 H Carbon Dioxide 21 L D BUN 22 H Creatinine 2.6 H Glucose 23 L* POC Glucose < 40 L Lactic Acid Calcium Phosphorus Magnesium Iron TIBC Transferrin Total Bilirubin 1.40 H Direct Bilirubin 0.9 H AST 94 H ALT 142 H Alkaline Phosphatase 249 H Lactate Dehydrogenase CK-MB (CK-2) Troponin T C-Reactive Protein Total Protein 4.6 L D Albumin 2.1 L Triglycerides Cholesterol HDL Cholesterol Vitamin B12 Urine Creatinine Urine Total Protein Heparin-induced Plt Ab Hep Bs Antibody, Quant Crossmatch 12/07/16 12/08/16 12/08/16 23:31 04:43 04:50 WBC RBC 2.35 L Hgb 6.6 L Hct 20.1 L MCV MCHC RDW 17.8 H Plt Count 48 L Lymph % (Auto) [place] % (Auto) [place] # Baso # Seg Neutrophils % Seg Neuts % (Manual) Lymphocytes % (Manual) Monocytes % (Manual) Nucleated RBC % Seg Neutrophils # Seg Neutrophils # Man Lymphocytes # (Manual) 0.9 L Monocytes # (Manual) Percent Retic Haptoglobin PT INR Fibrinogen D-Dimer POC ABG pH 7.586 H POC ABG pCO2 17.7 L POC ABG pO2 150 H Sodium Potassium Chloride Carbon Dioxide BUN Creatinine Glucose POC Glucose 42 L Lactic Acid Calcium Phosphorus Magnesium Iron TIBC Transferrin Total Bilirubin Direct Bilirubin AST ALT Alkaline Phosphatase Lactate Dehydrogenase CK-MB (CK-2) Troponin T C-Reactive Protein Total Protein Albumin Triglycerides Cholesterol HDL Cholesterol Vitamin B12 Urine Creatinine Urine Total Protein Heparin-induced Plt Ab Hep Bs Antibody, Quant Crossmatch 12/08/16 12/08/16 12/08/16 04:50 04:59 06:54 WBC RBC Hgb Hct MCV MCHC RDW Plt Count Lymph % (Auto) [place] % (Auto) [place] # Baso # Seg Neutrophils % Seg Neuts % (Manual) Lymphocytes % (Manual) Monocytes % (Manual) Nucleated RBC % Seg Neutrophils # Seg Neutrophils # Man Lymphocytes # (Manual) Monocytes # (Manual) Percent Retic Haptoglobin PT INR Fibrinogen D-Dimer POC ABG pH POC ABG pCO2 POC ABG pO2 Sodium 149 H Potassium 3.2 L Chloride 111.8 H Carbon Dioxide 17 L BUN 26 H Creatinine 3.4 H Glucose 163 H POC Glucose 204 H 203 H Lactic Acid Calcium 7.7 L Phosphorus 2.40 L D Magnesium Iron TIBC Transferrin Total Bilirubin Direct Bilirubin AST ALT Alkaline Phosphatase Lactate Dehydrogenase CK-MB (CK-2) Troponin T C-Reactive Protein Total Protein Albumin Triglycerides Cholesterol HDL Cholesterol Vitamin B12 Urine Creatinine Urine Total Protein Heparin-induced Plt Ab Hep Bs Antibody, Quant Crossmatch 12/08/16 12/08/16 12/08/16 08:04 08:46 08:46 WBC RBC Hgb Hct MCV MCHC RDW Plt Count Lymph % (Auto) [place] % (Auto) [place] # Baso # Seg Neutrophils % Seg Neuts % (Manual) Lymphocytes % (Manual) Monocytes % (Manual) Nucleated RBC % Seg Neutrophils # Seg Neutrophils # Man Lymphocytes # (Manual) Monocytes # (Manual) Percent Retic Haptoglobin PT INR Fibrinogen D-Dimer POC ABG pH POC ABG pCO2 POC ABG pO2 Sodium 147 H Potassium 2.9 L* Chloride 110.6 H Carbon Dioxide 17 L BUN 28 H Creatinine 3.6 H Glucose 127 H POC Glucose 205 H Lactic Acid Calcium 7.3 L Phosphorus Magnesium Iron TIBC Transferrin Total Bilirubin Direct Bilirubin AST ALT Alkaline Phosphatase Lactate Dehydrogenase CK-MB (CK-2) Troponin T C-Reactive Protein Total Protein Albumin Triglycerides Cholesterol HDL Cholesterol Vitamin B12 Urine Creatinine Urine Total Protein Heparin-induced Plt Ab Hep Bs Antibody, Quant Crossmatch See Detail 12/08/16 12/08/16 12/08/16 12:36 19:00 19:00 WBC RBC Hgb Hct MCV MCHC RDW Plt Count Lymph % (Auto) [place] % (Auto) [place] # Baso # Seg Neutrophils % Seg Neuts % (Manual) Lymphocytes % (Manual) Monocytes % (Manual) Nucleated RBC % Seg Neutrophils # Seg Neutrophils # Man Lymphocytes # (Manual) Monocytes # (Manual) Percent Retic Haptoglobin PT 15.3 H INR 1.22 H Fibrinogen 563 H D-Dimer 5507.36 H POC ABG pH POC ABG pCO2 POC ABG pO2 Sodium Potassium Chloride Carbon Dioxide 21 L BUN Creatinine 1.7 H D Glucose 155 H POC Glucose 181 H Lactic Acid Calcium Phosphorus Magnesium Iron TIBC Transferrin Total Bilirubin Direct Bilirubin AST ALT Alkaline Phosphatase Lactate Dehydrogenase CK-MB (CK-2) Troponin T C-Reactive Protein Total Protein Albumin Triglycerides Cholesterol HDL Cholesterol Vitamin B12 Urine Creatinine Urine Total Protein Heparin-induced Plt Ab Hep Bs Antibody, Quant Crossmatch 12/08/16 12/08/16 12/08/16 19:00 19:00 21:30 WBC RBC 2.76 L Hgb 7.8 L Hct 23.7 L MCV MCHC RDW 17.0 H Plt Count 38 L Lymph % (Auto) [place] % (Auto) [place] # Baso # Seg Neutrophils % Seg Neuts % (Manual) Lymphocytes % (Manual) Monocytes % (Manual) Nucleated RBC % Seg Neutrophils # Seg Neutrophils # Man Lymphocytes # (Manual) Monocytes # (Manual) Percent Retic Haptoglobin 271 H PT INR Fibrinogen D-Dimer POC ABG pH POC ABG pCO2 POC ABG pO2 Sodium Potassium Chloride Carbon Dioxide BUN Creatinine Glucose POC Glucose Lactic Acid Calcium Phosphorus Magnesium Iron TIBC Transferrin Total Bilirubin Direct Bilirubin AST ALT Alkaline Phosphatase Lactate Dehydrogenase 382 H CK-MB (CK-2) Troponin T C-Reactive Protein Total Protein Albumin Triglycerides Cholesterol HDL Cholesterol Vitamin B12 Urine Creatinine Urine Total Protein Heparin-induced Plt Ab Hep Bs Antibody, Quant Crossmatch 12/08/16 12/08/16 12/09/16 23:32 23:44 05:22 WBC RBC Hgb Hct MCV MCHC RDW Plt Count Lymph % (Auto) [place] % (Auto) [place] # Baso # Seg Neutrophils % Seg Neuts % (Manual) Lymphocytes % (Manual) Monocytes % (Manual) Nucleated RBC % Seg Neutrophils # Seg Neutrophils # Man Lymphocytes # (Manual) Monocytes # (Manual) Percent Retic Haptoglobin PT INR Fibrinogen D-Dimer POC ABG pH 7.498 H POC ABG pCO2 25.2 L POC ABG pO2 137 H Sodium Potassium Chloride Carbon Dioxide BUN Creatinine Glucose POC Glucose 311 H 113 H Lactic Acid Calcium Phosphorus Magnesium Iron TIBC Transferrin Total Bilirubin Direct Bilirubin AST ALT Alkaline Phosphatase Lactate Dehydrogenase CK-MB (CK-2) Troponin T C-Reactive Protein Total Protein Albumin Triglycerides Cholesterol HDL Cholesterol Vitamin B12 Urine Creatinine Urine Total Protein Heparin-induced Plt Ab Hep Bs Antibody, Quant Crossmatch 12/09/16 12/09/16 12/09/16 06:00 11:29 11:59 WBC RBC Hgb Hct MCV MCHC RDW Plt Count Lymph % (Auto) [place] % (Auto) [place] # Baso # Seg Neutrophils % Seg Neuts % (Manual) Lymphocytes % (Manual) Monocytes % (Manual) Nucleated RBC % Seg Neutrophils # Seg Neutrophils # Man Lymphocytes # (Manual) Monocytes # (Manual) Percent Retic 0.23 L Haptoglobin PT INR Fibrinogen D-Dimer POC ABG pH POC ABG pCO2 POC ABG pO2 Sodium Potassium Chloride 110.2 H Carbon Dioxide 18 L BUN 19 H Creatinine 2.5 H Glucose 105 H POC Glucose 254 H Lactic Acid Calcium Phosphorus 2.00 L Magnesium Iron TIBC Transferrin Total Bilirubin Direct Bilirubin AST ALT Alkaline Phosphatase Lactate Dehydrogenase CK-MB (CK-2) Troponin T C-Reactive Protein Total Protein Albumin Triglycerides Cholesterol HDL Cholesterol Vitamin B12 Urine Creatinine Urine Total Protein Heparin-induced Plt Ab Hep Bs Antibody, Quant Crossmatch 12/09/16 12/09/16 12/09/16 12:02 13:27 13:27 WBC RBC Hgb Hct MCV MCHC RDW Plt Count Lymph % (Auto) [place] % (Auto) [place] # Baso # Seg Neutrophils % Seg Neuts % (Manual) Lymphocytes % (Manual) Monocytes % (Manual) Nucleated RBC % Seg Neutrophils # Seg Neutrophils # Man Lymphocytes # (Manual) Monocytes # (Manual) Percent Retic Haptoglobin PT INR Fibrinogen D-Dimer POC ABG pH 7.326 L POC ABG pCO2 POC ABG pO2 115 H Sodium Potassium Chloride Carbon Dioxide BUN Creatinine Glucose POC Glucose Lactic Acid Calcium Phosphorus Magnesium Iron 15 L TIBC 134 L Transferrin Total Bilirubin Direct Bilirubin AST ALT Alkaline Phosphatase Lactate Dehydrogenase CK-MB (CK-2) Troponin T C-Reactive Protein Total Protein Albumin Triglycerides Cholesterol HDL Cholesterol Vitamin B12 > 2000 H Urine Creatinine Urine Total Protein Heparin-induced Plt Ab Hep Bs Antibody, Quant Crossmatch 12/09/16 12/09/16 12/09/16 13:27 13:27 16:28 WBC RBC Hgb Hct MCV MCHC RDW Plt Count Lymph % (Auto) [place] % (Auto) [place] # Baso # Seg Neutrophils % Seg Neuts % (Manual) Lymphocytes % (Manual) Monocytes % (Manual) Nucleated RBC % Seg Neutrophils # Seg Neutrophils # Man Lymphocytes # (Manual) Monocytes # (Manual) Percent Retic Haptoglobin PT INR Fibrinogen D-Dimer POC ABG pH POC ABG pCO2 POC ABG pO2 Sodium Potassium Chloride Carbon Dioxide BUN Creatinine Glucose POC Glucose 199 H Lactic Acid Calcium Phosphorus Magnesium Iron TIBC Transferrin Total Bilirubin Direct Bilirubin AST ALT Alkaline Phosphatase Lactate Dehydrogenase CK-MB (CK-2) Troponin T C-Reactive Protein Total Protein Albumin Triglycerides Cholesterol HDL Cholesterol Vitamin B12 Urine Creatinine Urine Total Protein Heparin-induced Plt Ab Weak positive H Hep Bs Antibody, Quant <5 L Crossmatch 12/09/16 12/09/16 12/10/16 23:27 Unknown 05:36 WBC 11.3 H RBC 2.92 L Hgb 8.4 L Hct 25.3 L MCV MCHC RDW 16.9 H Plt Count 31 L Lymph % (Auto) [place] % (Auto) [place] # Baso # Seg Neutrophils % Seg Neuts % (Manual) Lymphocytes % (Manual) Monocytes % (Manual) Nucleated RBC % Seg Neutrophils # Seg Neutrophils # Man Lymphocytes # (Manual) Monocytes # (Manual) Percent Retic Haptoglobin PT INR Fibrinogen D-Dimer POC ABG pH POC ABG pCO2 POC ABG pO2 Sodium Potassium Chloride Carbon Dioxide BUN Creatinine Glucose POC Glucose 247 H 248 H Lactic Acid Calcium Phosphorus Magnesium Iron TIBC Transferrin Total Bilirubin Direct Bilirubin AST ALT Alkaline Phosphatase Lactate Dehydrogenase CK-MB (CK-2) Troponin T C-Reactive Protein Total Protein Albumin Triglycerides Cholesterol HDL Cholesterol Vitamin B12 Urine Creatinine Urine Total Protein Heparin-induced Plt Ab Hep Bs Antibody, Quant Crossmatch 12/10/16 12/10/16 12/10/16 09:55 09:55 11:49 WBC 21.2 H RBC 3.37 L Hgb 9.6 L Hct 29.5 L MCV MCHC RDW 16.3 H Plt Count 102 L D Lymph % (Auto) [place] % (Auto) [place] # Baso # Seg Neutrophils % Seg Neuts % (Manual) Lymphocytes % (Manual) Monocytes % (Manual) Nucleated RBC % Seg Neutrophils # Seg Neutrophils # Man Lymphocytes # (Manual) Monocytes # (Manual) Percent Retic Haptoglobin PT INR Fibrinogen D-Dimer POC ABG pH POC ABG pCO2 POC ABG pO2 Sodium Potassium Chloride 107.4 H Carbon Dioxide 21 L BUN 37 H Creatinine 4.2 H D Glucose 174 H POC Glucose 265 H Lactic Acid Calcium Phosphorus Magnesium Iron TIBC Transferrin Total Bilirubin Direct Bilirubin AST ALT Alkaline Phosphatase Lactate Dehydrogenase CK-MB (CK-2) Troponin T C-Reactive Protein Total Protein Albumin Triglycerides Cholesterol HDL Cholesterol Vitamin B12 Urine Creatinine Urine Total Protein Heparin-induced Plt Ab Hep Bs Antibody, Quant Crossmatch 12/10/16 12/10/16 12/11/16 17:56 23:44 04:30 WBC 23.5 H RBC 3.46 L Hgb 9.7 L Hct 30.1 L MCV MCHC RDW 16.4 H Plt Count 115 L Lymph % (Auto) [place] % (Auto) [place] # Baso # Seg Neutrophils % Seg Neuts % (Manual) 84.0 H Lymphocytes % (Manual) 5.0 L Monocytes % (Manual) 10.0 H Nucleated RBC % 1.0 H Seg Neutrophils # Seg Neutrophils # Man 19.7 H Lymphocytes # (Manual) Monocytes # (Manual) 2.4 H Percent Retic Haptoglobin PT INR Fibrinogen D-Dimer POC ABG pH POC ABG pCO2 POC ABG pO2 Sodium Potassium Chloride Carbon Dioxide BUN Creatinine Glucose POC Glucose 118 H 378 H Lactic Acid Calcium Phosphorus Magnesium Iron TIBC Transferrin Total Bilirubin Direct Bilirubin AST ALT Alkaline Phosphatase Lactate Dehydrogenase CK-MB (CK-2) Troponin T C-Reactive Protein Total Protein Albumin Triglycerides Cholesterol HDL Cholesterol Vitamin B12 Urine Creatinine Urine Total Protein Heparin-induced Plt Ab Hep Bs Antibody, Quant Crossmatch 12/11/16 12/11/16 12/11/16 04:30 05:33 12:48 WBC RBC Hgb Hct MCV MCHC RDW Plt Count Lymph % (Auto) [place] % (Auto) [place] # Baso # Seg Neutrophils % Seg Neuts % (Manual) Lymphocytes % (Manual) Monocytes % (Manual) Nucleated RBC % Seg Neutrophils # Seg Neutrophils # Man Lymphocytes # (Manual) Monocytes # (Manual) Percent Retic Haptoglobin PT INR Fibrinogen D-Dimer POC ABG pH POC ABG pCO2 POC ABG pO2 Sodium Potassium Chloride Carbon Dioxide 21 L BUN 50 H Creatinine 4.8 H Glucose 303 H POC Glucose 335 H 325 H Lactic Acid Calcium 8.2 L Phosphorus Magnesium Iron TIBC Transferrin Total Bilirubin Direct Bilirubin AST ALT Alkaline Phosphatase Lactate Dehydrogenase CK-MB (CK-2) Troponin T C-Reactive Protein Total Protein Albumin Triglycerides Cholesterol HDL Cholesterol Vitamin B12 Urine Creatinine Urine Total Protein Heparin-induced Plt Ab Hep Bs Antibody, Quant Crossmatch 12/11/16 12/11/16 12/12/16 17:49 21:16 00:49 WBC RBC Hgb Hct MCV MCHC RDW Plt Count Lymph % (Auto) [place] % (Auto) [place] # Baso # Seg Neutrophils % Seg Neuts % (Manual) Lymphocytes % (Manual) Monocytes % (Manual) Nucleated RBC % Seg Neutrophils # Seg Neutrophils # Man Lymphocytes # (Manual) Monocytes # (Manual) Percent Retic Haptoglobin PT INR Fibrinogen D-Dimer POC ABG pH POC ABG pCO2 POC ABG pO2 Sodium Potassium Chloride Carbon Dioxide BUN Creatinine Glucose POC Glucose 368 H 162 H 225 H Lactic Acid Calcium Phosphorus Magnesium Iron TIBC Transferrin Total Bilirubin Direct Bilirubin AST ALT Alkaline Phosphatase Lactate Dehydrogenase CK-MB (CK-2) Troponin T C-Reactive Protein Total Protein Albumin Triglycerides Cholesterol HDL Cholesterol Vitamin B12 Urine Creatinine Urine Total Protein Heparin-induced Plt Ab Hep Bs Antibody, Quant Crossmatch 12/12/16 12/12/16 12/12/16 06:09 07:52 08:18 WBC 24.1 H RBC 3.16 L Hgb 9.0 L Hct 29.4 L MCV MCHC RDW 16.6 H Plt Count 96 L Lymph % (Auto) [place] % (Auto) [place] # Baso # Seg Neutrophils % Seg Neuts % (Manual) 75.0 H Lymphocytes % (Manual) Monocytes % (Manual) Nucleated RBC % Seg Neutrophils # Seg Neutrophils # Man 18.1 H Lymphocytes # (Manual) Monocytes # (Manual) 1.4 H Percent Retic Haptoglobin PT INR Fibrinogen D-Dimer POC ABG pH POC ABG pCO2 POC ABG pO2 Sodium Potassium Chloride Carbon Dioxide BUN Creatinine Glucose POC Glucose 428 H 418 H Lactic Acid Calcium Phosphorus Magnesium Iron TIBC Transferrin Total Bilirubin Direct Bilirubin AST ALT Alkaline Phosphatase Lactate Dehydrogenase CK-MB (CK-2) Troponin T C-Reactive Protein Total Protein Albumin Triglycerides Cholesterol HDL Cholesterol Vitamin B12 Urine Creatinine Urine Total Protein Heparin-induced Plt Ab Hep Bs Antibody, Quant Crossmatch 12/12/16 12/12/16 12/12/16 08:18 11:31 17:03 WBC RBC Hgb Hct MCV MCHC RDW Plt Count Lymph % (Auto) [place] % (Auto) [place] # Baso # Seg Neutrophils % Seg Neuts % (Manual) Lymphocytes % (Manual) Monocytes % (Manual) Nucleated RBC % Seg Neutrophils # Seg Neutrophils # Man Lymphocytes # (Manual) Monocytes # (Manual) Percent Retic Haptoglobin PT INR Fibrinogen D-Dimer POC ABG pH POC ABG pCO2 POC ABG pO2 Sodium Potassium Chloride Carbon Dioxide 12 L D BUN 41 H Creatinine 4.5 H Glucose 369 H POC Glucose 212 H 422 H Lactic Acid Calcium Phosphorus Magnesium Iron TIBC Transferrin Total Bilirubin Direct Bilirubin AST ALT Alkaline Phosphatase Lactate Dehydrogenase CK-MB (CK-2) Troponin T C-Reactive Protein Total Protein Albumin Triglycerides Cholesterol HDL Cholesterol Vitamin B12 Urine Creatinine Urine Total Protein Heparin-induced Plt Ab Hep Bs Antibody, Quant Crossmatch 12/12/16 12/13/16 12/13/16 21:35 07:49 07:49 WBC 24.0 H RBC 2.90 L Hgb 8.3 L Hct 25.8 L MCV MCHC RDW 15.5 H Plt Count 120 L Lymph % (Auto) [place] % (Auto) [place] # Baso # Seg Neutrophils % Seg Neuts % (Manual) 89.0 H Lymphocytes % (Manual) 7.0 L Monocytes % (Manual) Nucleated RBC % Seg Neutrophils # Seg Neutrophils # Man 21.4 H Lymphocytes # (Manual) Monocytes # (Manual) Percent Retic Haptoglobin PT INR Fibrinogen D-Dimer POC ABG pH POC ABG pCO2 POC ABG pO2 Sodium Potassium 3.2 L Chloride Carbon Dioxide BUN 21 H Creatinine 3.0 H Glucose 21 L* POC Glucose 185 H Lactic Acid Calcium Phosphorus Magnesium Iron TIBC Transferrin Total Bilirubin Direct Bilirubin AST ALT Alkaline Phosphatase Lactate Dehydrogenase CK-MB (CK-2) Troponin T C-Reactive Protein Total Protein Albumin Triglycerides Cholesterol HDL Cholesterol Vitamin B12 Urine Creatinine Urine Total Protein Heparin-induced Plt Ab Hep Bs Antibody, Quant Crossmatch 12/13/16 12/13/16 12/13/16 09:57 11:02 16:52 WBC RBC Hgb Hct MCV MCHC RDW Plt Count Lymph % (Auto) [place] % (Auto) [place] # Baso # Seg Neutrophils % Seg Neuts % (Manual) Lymphocytes % (Manual) Monocytes % (Manual) Nucleated RBC % Seg Neutrophils # Seg Neutrophils # Man Lymphocytes # (Manual) Monocytes # (Manual) Percent Retic Haptoglobin PT INR Fibrinogen D-Dimer POC ABG pH POC ABG pCO2 POC ABG pO2 Sodium Potassium Chloride Carbon Dioxide BUN Creatinine Glucose POC Glucose < 40 L 231 H 312 H Lactic Acid Calcium Phosphorus Magnesium Iron TIBC Transferrin Total Bilirubin Direct Bilirubin AST ALT Alkaline Phosphatase Lactate Dehydrogenase CK-MB (CK-2) Troponin T C-Reactive Protein Total Protein Albumin Triglycerides Cholesterol HDL Cholesterol Vitamin B12 Urine Creatinine Urine Total Protein Heparin-induced Plt Ab Hep Bs Antibody, Quant Crossmatch 12/13/16 12/14/16 12/14/16 21:32 07:07 07:07 WBC 16.7 H RBC 2.80 L Hgb 7.9 L Hct 24.7 L MCV MCHC RDW 15.4 H Plt Count 131 L Lymph % (Auto) 13.1 L [place] % (Auto) [place] # 1.2 H Baso # Seg Neutrophils % 78.3 H Seg Neuts % (Manual) Lymphocytes % (Manual) Monocytes % (Manual) Nucleated RBC % Seg Neutrophils # 13.1 H Seg Neutrophils # Man Lymphocytes # (Manual) Monocytes # (Manual) Percent Retic Haptoglobin PT INR Fibrinogen D-Dimer POC ABG pH POC ABG pCO2 POC ABG pO2 Sodium Potassium 3.5 L Chloride Carbon Dioxide BUN 30 H Creatinine 4.6 H D Glucose 181 H POC Glucose 275 H Lactic Acid Calcium 7.7 L Phosphorus Magnesium Iron TIBC Transferrin Total Bilirubin Direct Bilirubin AST ALT Alkaline Phosphatase Lactate Dehydrogenase CK-MB (CK-2) Troponin T C-Reactive Protein Total Protein Albumin Triglycerides Cholesterol HDL Cholesterol Vitamin B12 Urine Creatinine Urine Total Protein Heparin-induced Plt Ab Hep Bs Antibody, Quant Crossmatch 12/14/16 12/14/16 12/14/16 07:46 11:35 16:24 WBC RBC Hgb Hct MCV MCHC RDW Plt Count Lymph % (Auto) [place] % (Auto) [place] # Baso # Seg Neutrophils % Seg Neuts % (Manual) Lymphocytes % (Manual) Monocytes % (Manual) Nucleated RBC % Seg Neutrophils # Seg Neutrophils # Man Lymphocytes # (Manual) Monocytes # (Manual) Percent Retic Haptoglobin PT INR Fibrinogen D-Dimer POC ABG pH POC ABG pCO2 POC ABG pO2 Sodium Potassium Chloride Carbon Dioxide BUN Creatinine Glucose POC Glucose 189 H 254 H 466 H Lactic Acid Calcium Phosphorus Magnesium Iron TIBC Transferrin Total Bilirubin Direct Bilirubin AST ALT Alkaline Phosphatase Lactate Dehydrogenase CK-MB (CK-2) Troponin T C-Reactive Protein Total Protein Albumin Triglycerides Cholesterol HDL Cholesterol Vitamin B12 Urine Creatinine Urine Total Protein Heparin-induced Plt Ab Hep Bs Antibody, Quant Crossmatch 12/14/16 12/15/16 12/15/16 20:57 06:27 07:46 WBC RBC Hgb Hct MCV MCHC RDW Plt Count Lymph % (Auto) [place] % (Auto) [place] # Baso # Seg Neutrophils % Seg Neuts % (Manual) Lymphocytes % (Manual) Monocytes % (Manual) Nucleated RBC % Seg Neutrophils # Seg Neutrophils # Man Lymphocytes # (Manual) Monocytes # (Manual) Percent Retic Haptoglobin PT INR Fibrinogen D-Dimer POC ABG pH POC ABG pCO2 POC ABG pO2 Sodium Potassium Chloride Carbon Dioxide BUN Creatinine Glucose POC Glucose 301 H 183 H 231 H Lactic Acid Calcium Phosphorus Magnesium Iron TIBC Transferrin Total Bilirubin Direct Bilirubin AST ALT Alkaline Phosphatase Lactate Dehydrogenase CK-MB (CK-2) Troponin T C-Reactive Protein Total Protein Albumin Triglycerides Cholesterol HDL Cholesterol Vitamin B12 Urine Creatinine Urine Total Protein Heparin-induced Plt Ab Hep Bs Antibody, Quant Crossmatch 12/15/16 12/15/16 12/15/16 11:38 15:34 20:51 WBC RBC Hgb Hct MCV MCHC RDW Plt Count Lymph % (Auto) [place] % (Auto) [place] # Baso # Seg Neutrophils % Seg Neuts % (Manual) Lymphocytes % (Manual) Monocytes % (Manual) Nucleated RBC % Seg Neutrophils # Seg Neutrophils # Man Lymphocytes # (Manual) Monocytes # (Manual) Percent Retic Haptoglobin PT INR Fibrinogen D-Dimer POC ABG pH POC ABG pCO2 POC ABG pO2 Sodium Potassium Chloride Carbon Dioxide BUN Creatinine Glucose POC Glucose 375 H 313 H 274 H Lactic Acid Calcium Phosphorus Magnesium Iron TIBC Transferrin Total Bilirubin Direct Bilirubin AST ALT Alkaline Phosphatase Lactate Dehydrogenase CK-MB (CK-2) Troponin T C-Reactive Protein Total Protein Albumin Triglycerides Cholesterol HDL Cholesterol Vitamin B12 Urine Creatinine Urine Total Protein Heparin-induced Plt Ab Hep Bs Antibody, Quant Crossmatch 12/16/16 12/16/16 12/16/16 08:26 09:12 17:13 WBC RBC Hgb Hct MCV MCHC RDW Plt Count Lymph % (Auto) [place] % (Auto) [place] # Baso # Seg Neutrophils % Seg Neuts % (Manual) Lymphocytes % (Manual) Monocytes % (Manual) Nucleated RBC % Seg Neutrophils # Seg Neutrophils # Man Lymphocytes # (Manual) Monocytes # (Manual) Percent Retic Haptoglobin PT INR Fibrinogen D-Dimer POC ABG pH POC ABG pCO2 POC ABG pO2 Sodium Potassium Chloride Carbon Dioxide BUN Creatinine Glucose POC Glucose 59 L 127 H > 500 H Lactic Acid Calcium Phosphorus Magnesium Iron TIBC Transferrin Total Bilirubin Direct Bilirubin AST ALT Alkaline Phosphatase Lactate Dehydrogenase CK-MB (CK-2) Troponin T C-Reactive Protein Total Protein Albumin Triglycerides Cholesterol HDL Cholesterol Vitamin B12 Urine Creatinine Urine Total Protein Heparin-induced Plt Ab Hep Bs Antibody, Quant Crossmatch 12/16/16 12/16/16 12/16/16 22:59 Unknown Unknown WBC 17.2 H RBC 2.83 L Hgb 7.9 L Hct 24.4 L MCV MCHC RDW Plt Count Lymph % (Auto) 9.2 L [place] % (Auto) [place] # 0.9 H Baso # Seg Neutrophils % 84.1 H Seg Neuts % (Manual) Lymphocytes % (Manual) Monocytes % (Manual) Nucleated RBC % Seg Neutrophils # 14.5 H Seg Neutrophils # Man Lymphocytes # (Manual) Monocytes # (Manual) Percent Retic Haptoglobin PT INR Fibrinogen D-Dimer POC ABG pH POC ABG pCO2 POC ABG pO2 Sodium Potassium Chloride Carbon Dioxide BUN 43 H Creatinine 5.4 H Glucose 131 H POC Glucose 320 H Lactic Acid Calcium 6.9 L Phosphorus Magnesium Iron TIBC Transferrin Total Bilirubin Direct Bilirubin AST ALT Alkaline Phosphatase Lactate Dehydrogenase CK-MB (CK-2) Troponin T C-Reactive Protein Total Protein Albumin Triglycerides Cholesterol HDL Cholesterol Vitamin B12 Urine Creatinine Urine Total Protein Heparin-induced Plt Ab Hep Bs Antibody, Quant Crossmatch 12/17/16 12/17/16 12/17/16 08:26 08:56 09:52 WBC RBC Hgb Hct MCV MCHC RDW Plt Count Lymph % (Auto) [place] % (Auto) [place] # Baso # Seg Neutrophils % Seg Neuts % (Manual) Lymphocytes % (Manual) Monocytes % (Manual) Nucleated RBC % Seg Neutrophils # Seg Neutrophils # Man Lymphocytes # (Manual) Monocytes # (Manual) Percent Retic Haptoglobin PT INR Fibrinogen D-Dimer POC ABG pH POC ABG pCO2 POC ABG pO2 Sodium Potassium Chloride Carbon Dioxide BUN Creatinine Glucose POC Glucose < 40 L 40 L 133 H Lactic Acid Calcium Phosphorus Magnesium Iron TIBC Transferrin Total Bilirubin Direct Bilirubin AST ALT Alkaline Phosphatase Lactate Dehydrogenase CK-MB (CK-2) Troponin T C-Reactive Protein Total Protein Albumin Triglycerides Cholesterol HDL Cholesterol Vitamin B12 Urine Creatinine Urine Total Protein Heparin-induced Plt Ab Hep Bs Antibody, Quant Crossmatch 12/17/16 12/17/16 12/17/16 12:51 16:08 21:00 WBC RBC Hgb Hct MCV MCHC RDW Plt Count Lymph % (Auto) [place] % (Auto) [place] # Baso # Seg Neutrophils % Seg Neuts % (Manual) Lymphocytes % (Manual) Monocytes % (Manual) Nucleated RBC % Seg Neutrophils # Seg Neutrophils # Man Lymphocytes # (Manual) Monocytes # (Manual) Percent Retic Haptoglobin PT INR Fibrinogen D-Dimer POC ABG pH POC ABG pCO2 POC ABG pO2 Sodium Potassium Chloride Carbon Dioxide BUN Creatinine Glucose POC Glucose 177 H 303 H 489 H Lactic Acid Calcium Phosphorus Magnesium Iron TIBC Transferrin Total Bilirubin Direct Bilirubin AST ALT Alkaline Phosphatase Lactate Dehydrogenase CK-MB (CK-2) Troponin T C-Reactive Protein Total Protein Albumin Triglycerides Cholesterol HDL Cholesterol Vitamin B12 Urine Creatinine Urine Total Protein Heparin-induced Plt Ab Hep Bs Antibody, Quant Crossmatch 12/17/16 12/17/16 12/18/16 Unknown Unknown 05:50 WBC 16.6 H 15.6 H RBC 2.63 L 2.58 L Hgb 7.5 L 7.3 L Hct 23.3 L 23.0 L MCV MCHC RDW 15.3 H 15.9 H Plt Count Lymph % (Auto) 7.7 L 8.7 L [place] % (Auto) [place] # 0.9 H Baso # Seg Neutrophils % 85.8 H 83.6 H Seg Neuts % (Manual) Lymphocytes % (Manual) Monocytes % (Manual) Nucleated RBC % Seg Neutrophils # 14.3 H 13.0 H Seg Neutrophils # Man Lymphocytes # (Manual) Monocytes # (Manual) Percent Retic Haptoglobin PT INR Fibrinogen D-Dimer POC ABG pH POC ABG pCO2 POC ABG pO2 Sodium Potassium 3.5 L Chloride Carbon Dioxide BUN 47 H Creatinine 5.2 H Glucose 173 H POC Glucose Lactic Acid Calcium 6.9 L Phosphorus Magnesium Iron TIBC Transferrin Total Bilirubin Direct Bilirubin AST ALT Alkaline Phosphatase Lactate Dehydrogenase CK-MB (CK-2) Troponin T C-Reactive Protein Total Protein Albumin Triglycerides Cholesterol HDL Cholesterol Vitamin B12 Urine Creatinine Urine Total Protein Heparin-induced Plt Ab Hep Bs Antibody, Quant Crossmatch 12/18/16 12/18/16 12/18/16 05:50 09:09 16:46 WBC RBC Hgb Hct MCV MCHC RDW Plt Count Lymph % (Auto) [place] % (Auto) [place] # Baso # Seg Neutrophils % Seg Neuts % (Manual) Lymphocytes % (Manual) Monocytes % (Manual) Nucleated RBC % Seg Neutrophils # Seg Neutrophils # Man Lymphocytes # (Manual) Monocytes # (Manual) Percent Retic Haptoglobin PT INR Fibrinogen D-Dimer POC ABG pH POC ABG pCO2 POC ABG pO2 Sodium Potassium Chloride Carbon Dioxide 17 L BUN 46 H Creatinine 5.0 H Glucose 252 H POC Glucose 349 H 324 H Lactic Acid Calcium 6.8 L Phosphorus Magnesium Iron TIBC Transferrin Total Bilirubin Direct Bilirubin AST ALT Alkaline Phosphatase Lactate Dehydrogenase CK-MB (CK-2) Troponin T C-Reactive Protein Total Protein Albumin Triglycerides Cholesterol HDL Cholesterol Vitamin B12 Urine Creatinine Urine Total Protein Heparin-induced Plt Ab Hep Bs Antibody, Quant Crossmatch 12/18/16 12/19/16 12/19/16 21:14 08:12 10:23 WBC 13.7 H RBC 2.60 L Hgb 7.5 L Hct 23.1 L MCV MCHC RDW 15.7 H Plt Count Lymph % (Auto) 9.1 L [place] % (Auto) [place] # 0.9 H Baso # Seg Neutrophils % 82.2 H Seg Neuts % (Manual) Lymphocytes % (Manual) Monocytes % (Manual) Nucleated RBC % Seg Neutrophils # 11.3 H Seg Neutrophils # Man Lymphocytes # (Manual) Monocytes # (Manual) Percent Retic Haptoglobin PT INR Fibrinogen D-Dimer POC ABG pH POC ABG pCO2 POC ABG pO2 Sodium Potassium Chloride Carbon Dioxide BUN Creatinine Glucose POC Glucose 316 H 464 H Lactic Acid Calcium Phosphorus Magnesium Iron TIBC Transferrin Total Bilirubin Direct Bilirubin AST ALT Alkaline Phosphatase Lactate Dehydrogenase CK-MB (CK-2) Troponin T C-Reactive Protein Total Protein Albumin Triglycerides Cholesterol HDL Cholesterol Vitamin B12 Urine Creatinine Urine Total Protein Heparin-induced Plt Ab Hep Bs Antibody, Quant Crossmatch 12/19/16 12/19/16 12/19/16 10:23 11:39 16:00 WBC RBC Hgb Hct MCV MCHC RDW Plt Count Lymph % (Auto) [place] % (Auto) [place] # Baso # Seg Neutrophils % Seg Neuts % (Manual) Lymphocytes % (Manual) Monocytes % (Manual) Nucleated RBC % Seg Neutrophils # Seg Neutrophils # Man Lymphocytes # (Manual) Monocytes # (Manual) Percent Retic Haptoglobin PT INR Fibrinogen D-Dimer POC ABG pH POC ABG pCO2 POC ABG pO2 Sodium Potassium 3.5 L Chloride Carbon Dioxide 14 L BUN 22 H Creatinine 3.2 H Glucose 446 H POC Glucose 344 H 467 H Lactic Acid Calcium 6.9 L Phosphorus 1.70 L D Magnesium Iron TIBC Transferrin Total Bilirubin Direct Bilirubin AST ALT Alkaline Phosphatase Lactate Dehydrogenase CK-MB (CK-2) Troponin T C-Reactive Protein Total Protein Albumin Triglycerides Cholesterol HDL Cholesterol Vitamin B12 Urine Creatinine Urine Total Protein Heparin-induced Plt Ab Hep Bs Antibody, Quant Crossmatch 12/19/16 12/19/16 12/19/16 16:35 16:35 21:16 WBC 19.3 H RBC 2.37 L Hgb 6.9 L Hct 21.8 L MCV MCHC RDW 16.7 H Plt Count Lymph % (Auto) [place] % (Auto) [place] # Baso # Seg Neutrophils % Seg Neuts % (Manual) Lymphocytes % (Manual) Monocytes % (Manual) Nucleated RBC % Seg Neutrophils # Seg Neutrophils # Man Lymphocytes # (Manual) Monocytes # (Manual) Percent Retic Haptoglobin PT INR Fibrinogen D-Dimer POC ABG pH POC ABG pCO2 POC ABG pO2 Sodium Potassium 3.4 L Chloride Carbon Dioxide 17 L BUN 23 H Creatinine 3.2 H Glucose 427 H POC Glucose 397 H Lactic Acid Calcium 6.9 L Phosphorus 2.40 L D Magnesium Iron TIBC Transferrin Total Bilirubin Direct Bilirubin AST ALT Alkaline Phosphatase Lactate Dehydrogenase CK-MB (CK-2) Troponin T C-Reactive Protein Total Protein Albumin Triglycerides Cholesterol HDL Cholesterol Vitamin B12 Urine Creatinine Urine Total Protein Heparin-induced Plt Ab Hep Bs Antibody, Quant Crossmatch 12/20/16 12/20/16 12/20/16 06:00 06:00 07:55 WBC 17.5 H RBC 2.54 L Hgb 7.3 L Hct 23.5 L MCV MCHC RDW 16.4 H Plt Count Lymph % (Auto) 9.0 L [place] % (Auto) [place] # 1.1 H Baso # Seg Neutrophils % 83.0 H Seg Neuts % (Manual) Lymphocytes % (Manual) Monocytes % (Manual) Nucleated RBC % Seg Neutrophils # 14.5 H Seg Neutrophils # Man Lymphocytes # (Manual) Monocytes # (Manual) Percent Retic Haptoglobin PT INR Fibrinogen D-Dimer POC ABG pH POC ABG pCO2 POC ABG pO2 Sodium 136 L Potassium Chloride 92.4 L Carbon Dioxide 15 L BUN Creatinine 2.6 H Glucose 475 H POC Glucose > 500 H Lactic Acid Calcium Phosphorus Magnesium Iron TIBC Transferrin Total Bilirubin Direct Bilirubin AST ALT Alkaline Phosphatase Lactate Dehydrogenase CK-MB (CK-2) Troponin T C-Reactive Protein Total Protein Albumin Triglycerides Cholesterol HDL Cholesterol Vitamin B12 Urine Creatinine Urine Total Protein Heparin-induced Plt Ab Hep Bs Antibody, Quant Crossmatch 12/20/16 12/20/16 12/20/16 11:21 16:01 22:33 WBC RBC Hgb Hct MCV MCHC RDW Plt Count Lymph % (Auto) [place] % (Auto) [place] # Baso # Seg Neutrophils % Seg Neuts % (Manual) Lymphocytes % (Manual) Monocytes % (Manual) Nucleated RBC % Seg Neutrophils # Seg Neutrophils # Man Lymphocytes # (Manual) Monocytes # (Manual) Percent Retic Haptoglobin PT INR Fibrinogen D-Dimer POC ABG pH POC ABG pCO2 POC ABG pO2 Sodium Potassium Chloride Carbon Dioxide BUN Creatinine Glucose POC Glucose > 500 H 446 H > 500 H Lactic Acid Calcium Phosphorus Magnesium Iron TIBC Transferrin Total Bilirubin Direct Bilirubin AST ALT Alkaline Phosphatase Lactate Dehydrogenase CK-MB (CK-2) Troponin T C-Reactive Protein Total Protein Albumin Triglycerides Cholesterol HDL Cholesterol Vitamin B12 Urine Creatinine Urine Total Protein Heparin-induced Plt Ab Hep Bs Antibody, Quant Crossmatch 12/20/16 12/20/16 12/21/16 22:37 23:00 00:48 WBC RBC Hgb Hct MCV MCHC RDW Plt Count Lymph % (Auto) [place] % (Auto) [place] # Baso # Seg Neutrophils % Seg Neuts % (Manual) Lymphocytes % (Manual) Monocytes % (Manual) Nucleated RBC % Seg Neutrophils # Seg Neutrophils # Man Lymphocytes # (Manual) Monocytes # (Manual) Percent Retic Haptoglobin PT INR Fibrinogen D-Dimer POC ABG pH POC ABG pCO2 POC ABG pO2 Sodium 128 L D Potassium Chloride 83.2 L Carbon Dioxide 11 L BUN 32 H Creatinine 3.5 H Glucose 822 H* POC Glucose > 500 H > 500 H Lactic Acid Calcium 8.2 L Phosphorus Magnesium Iron TIBC Transferrin Total Bilirubin Direct Bilirubin AST ALT Alkaline Phosphatase Lactate Dehydrogenase CK-MB (CK-2) Troponin T C-Reactive Protein Total Protein Albumin Triglycerides Cholesterol HDL Cholesterol Vitamin B12 Urine Creatinine Urine Total Protein Heparin-induced Plt Ab Hep Bs Antibody, Quant Crossmatch 12/21/16 12/21/16 12/21/16 03:17 05:00 05:00 WBC 15.7 H RBC 2.32 L Hgb 6.8 L Hct 20.6 L MCV MCHC RDW 16.3 H Plt Count Lymph % (Auto) 11.5 L [place] % (Auto) 7.4 H [place] # 1.2 H Baso # Seg Neutrophils % 78.7 H Seg Neuts % (Manual) Lymphocytes % (Manual) Monocytes % (Manual) Nucleated RBC % Seg Neutrophils # 12.4 H Seg Neutrophils # Man Lymphocytes # (Manual) Monocytes # (Manual) Percent Retic Haptoglobin PT INR Fibrinogen D-Dimer POC ABG pH POC ABG pCO2 POC ABG pO2 Sodium Potassium Chloride 95.3 L Carbon Dioxide 20 L D BUN 32 H Creatinine 3.7 H Glucose 243 H POC Glucose 428 H Lactic Acid Calcium 8.1 L Phosphorus Magnesium Iron TIBC 193.20 L Transferrin 138 L Total Bilirubin Direct Bilirubin AST ALT Alkaline Phosphatase Lactate Dehydrogenase CK-MB (CK-2) Troponin T C-Reactive Protein Total Protein Albumin Triglycerides Cholesterol HDL Cholesterol Vitamin B12 Urine Creatinine Urine Total Protein Heparin-induced Plt Ab Hep Bs Antibody, Quant Crossmatch 12/21/16 12/21/16 12/21/16 05:40 06:49 08:20 WBC RBC Hgb Hct MCV MCHC RDW Plt Count Lymph % (Auto) [place] % (Auto) [place] # Baso # Seg Neutrophils % Seg Neuts % (Manual) Lymphocytes % (Manual) Monocytes % (Manual) Nucleated RBC % Seg Neutrophils # Seg Neutrophils # Man Lymphocytes # (Manual) Monocytes # (Manual) Percent Retic Haptoglobin PT INR Fibrinogen D-Dimer POC ABG pH POC ABG pCO2 POC ABG pO2 Sodium Potassium Chloride Carbon Dioxide BUN Creatinine Glucose POC Glucose 271 H 236 H 222 H Lactic Acid Calcium Phosphorus Magnesium Iron TIBC Transferrin Total Bilirubin Direct Bilirubin AST ALT Alkaline Phosphatase Lactate Dehydrogenase CK-MB (CK-2) Troponin T C-Reactive Protein Total Protein Albumin Triglycerides Cholesterol HDL Cholesterol Vitamin B12 Urine Creatinine Urine Total Protein Heparin-induced Plt Ab Hep Bs Antibody, Quant Crossmatch 12/21/16 12/21/16 12/21/16 16:28 18:26 21:10 WBC RBC Hgb Hct MCV MCHC RDW Plt Count Lymph % (Auto) [place] % (Auto) [place] # Baso # Seg Neutrophils % Seg Neuts % (Manual) Lymphocytes % (Manual) Monocytes % (Manual) Nucleated RBC % Seg Neutrophils # Seg Neutrophils # Man Lymphocytes # (Manual) Monocytes # (Manual) Percent Retic Haptoglobin PT INR Fibrinogen D-Dimer POC ABG pH POC ABG pCO2 POC ABG pO2 Sodium Potassium Chloride Carbon Dioxide BUN Creatinine Glucose POC Glucose < 40 L 62 L 255 H Lactic Acid Calcium Phosphorus Magnesium Iron TIBC Transferrin Total Bilirubin Direct Bilirubin AST ALT Alkaline Phosphatase Lactate Dehydrogenase CK-MB (CK-2) Troponin T C-Reactive Protein Total Protein Albumin Triglycerides Cholesterol HDL Cholesterol Vitamin B12 Urine Creatinine Urine Total Protein Heparin-induced Plt Ab Hep Bs Antibody, Quant Crossmatch 12/22/16 12/22/16 12/22/16 03:38 06:45 06:45 WBC 17.4 H RBC 2.26 L Hgb 6.6 L Hct 20.5 L MCV MCHC RDW 15.7 H Plt Count Lymph % (Auto) 8.1 L [place] % (Auto) [place] # 0.9 H Baso # 0.2 H Seg Neutrophils % 84.3 H Seg Neuts % (Manual) Lymphocytes % (Manual) Monocytes % (Manual) Nucleated RBC % Seg Neutrophils # 14.6 H Seg Neutrophils # Man Lymphocytes # (Manual) Monocytes # (Manual) Percent Retic Haptoglobin PT INR Fibrinogen D-Dimer POC ABG pH POC ABG pCO2 POC ABG pO2 Sodium Potassium 3.3 L Chloride 95.5 L Carbon Dioxide 20 L BUN Creatinine 2.5 H Glucose 308 H POC Glucose 430 H Lactic Acid Calcium 8.2 L Phosphorus Magnesium Iron TIBC Transferrin Total Bilirubin Direct Bilirubin AST ALT Alkaline Phosphatase Lactate Dehydrogenase CK-MB (CK-2) Troponin T C-Reactive Protein Total Protein Albumin Triglycerides Cholesterol HDL Cholesterol Vitamin B12 Urine Creatinine Urine Total Protein Heparin-induced Plt Ab Hep Bs Antibody, Quant Crossmatch 12/22/16 12/22/16 12/22/16 08:31 12:50 15:46 WBC RBC Hgb Hct MCV MCHC RDW Plt Count Lymph % (Auto) [place] % (Auto) [place] # Baso # Seg Neutrophils % Seg Neuts % (Manual) Lymphocytes % (Manual) Monocytes % (Manual) Nucleated RBC % Seg Neutrophils # Seg Neutrophils # Man Lymphocytes # (Manual) Monocytes # (Manual) Percent Retic Haptoglobin PT INR Fibrinogen D-Dimer POC ABG pH POC ABG pCO2 POC ABG pO2 Sodium Potassium Chloride Carbon Dioxide BUN Creatinine Glucose POC Glucose 306 H 391 H Lactic Acid Calcium Phosphorus Magnesium Iron TIBC Transferrin Total Bilirubin Direct Bilirubin AST ALT Alkaline Phosphatase Lactate Dehydrogenase CK-MB (CK-2) Troponin T C-Reactive Protein Total Protein Albumin Triglycerides Cholesterol HDL Cholesterol Vitamin B12 Urine Creatinine Urine Total Protein Heparin-induced Plt Ab Hep Bs Antibody, Quant Crossmatch See Detail 12/22/16 12/22/16 12/23/16 17:13 21:45 06:42 WBC 17.9 H RBC 2.75 L Hgb 8.1 L Hct 24.8 L MCV MCHC RDW 17.1 H Plt Count Lymph % (Auto) [place] % (Auto) [place] # Baso # Seg Neutrophils % Seg Neuts % (Manual) Lymphocytes % (Manual) Monocytes % (Manual) Nucleated RBC % Seg Neutrophils # Seg Neutrophils # Man Lymphocytes # (Manual) Monocytes # (Manual) Percent Retic Haptoglobin PT INR Fibrinogen D-Dimer POC ABG pH POC ABG pCO2 POC ABG pO2 Sodium Potassium Chloride Carbon Dioxide BUN Creatinine Glucose POC Glucose > 500 H 449 H Lactic Acid Calcium Phosphorus Magnesium Iron TIBC Transferrin Total Bilirubin Direct Bilirubin AST ALT Alkaline Phosphatase Lactate Dehydrogenase CK-MB (CK-2) Troponin T C-Reactive Protein Total Protein Albumin Triglycerides Cholesterol HDL Cholesterol Vitamin B12 Urine Creatinine Urine Total Protein Heparin-induced Plt Ab Hep Bs Antibody, Quant Crossmatch 12/23/16 12/23/16 12/23/16 06:42 07:46 11:33 WBC RBC Hgb Hct MCV MCHC RDW Plt Count Lymph % (Auto) [place] % (Auto) [place] # Baso # Seg Neutrophils % Seg Neuts % (Manual) Lymphocytes % (Manual) Monocytes % (Manual) Nucleated RBC % Seg Neutrophils # Seg Neutrophils # Man Lymphocytes # (Manual) Monocytes # (Manual) Percent Retic Haptoglobin PT INR Fibrinogen D-Dimer POC ABG pH POC ABG pCO2 POC ABG pO2 Sodium Potassium 3.5 L Chloride 94.7 L Carbon Dioxide 19 L BUN 22 H Creatinine 2.9 H Glucose 401 H POC Glucose 449 H 298 H Lactic Acid Calcium 8.3 L Phosphorus Magnesium Iron TIBC Transferrin Total Bilirubin Direct Bilirubin AST ALT Alkaline Phosphatase Lactate Dehydrogenase CK-MB (CK-2) Troponin T C-Reactive Protein Total Protein Albumin Triglycerides Cholesterol HDL Cholesterol Vitamin B12 Urine Creatinine Urine Total Protein Heparin-induced Plt Ab Hep Bs Antibody, Quant Crossmatch 12/23/16 12/23/16 12/24/16 18:24 21:30 00:00 WBC RBC Hgb Hct MCV MCHC RDW Plt Count Lymph % (Auto) [place] % (Auto) [place] # Baso # Seg Neutrophils % Seg Neuts % (Manual) Lymphocytes % (Manual) Monocytes % (Manual) Nucleated RBC % Seg Neutrophils # Seg Neutrophils # Man Lymphocytes # (Manual) Monocytes # (Manual) Percent Retic Haptoglobin PT INR Fibrinogen D-Dimer POC ABG pH POC ABG pCO2 POC ABG pO2 Sodium Potassium Chloride Carbon Dioxide BUN Creatinine Glucose POC Glucose 177 H 455 H Lactic Acid Calcium Phosphorus Magnesium Iron TIBC Transferrin Total Bilirubin Direct Bilirubin AST ALT Alkaline Phosphatase Lactate Dehydrogenase CK-MB (CK-2) Troponin T C-Reactive Protein Total Protein Albumin Triglycerides Cholesterol HDL Cholesterol Vitamin B12 Urine Creatinine 239.9 H Urine Total Protein Heparin-induced Plt Ab Hep Bs Antibody, Quant Crossmatch 12/24/16 12/24/16 12/24/16 05:00 16:11 18:55 WBC RBC Hgb Hct MCV MCHC RDW Plt Count Lymph % (Auto) [place] % (Auto) [place] # Baso # Seg Neutrophils % Seg Neuts % (Manual) Lymphocytes % (Manual) Monocytes % (Manual) Nucleated RBC % Seg Neutrophils # Seg Neutrophils # Man Lymphocytes # (Manual) Monocytes # (Manual) Percent Retic Haptoglobin PT INR Fibrinogen D-Dimer POC ABG pH POC ABG pCO2 POC ABG pO2 Sodium Potassium 3.1 L Chloride 95.8 L Carbon Dioxide BUN Creatinine 1.8 H Glucose 106 H POC Glucose 175 H 148 H Lactic Acid Calcium Phosphorus Magnesium Iron TIBC Transferrin Total Bilirubin Direct Bilirubin AST ALT Alkaline Phosphatase Lactate Dehydrogenase CK-MB (CK-2) Troponin T C-Reactive Protein Total Protein Albumin Triglycerides Cholesterol HDL Cholesterol Vitamin B12 Urine Creatinine Urine Total Protein Heparin-induced Plt Ab Hep Bs Antibody, Quant Crossmatch 12/24/16 12/24/16 12/25/16 20:41 22:21 05:03 WBC RBC Hgb Hct MCV MCHC RDW Plt Count Lymph % (Auto) [place] % (Auto) [place] # Baso # Seg Neutrophils % Seg Neuts % (Manual) Lymphocytes % (Manual) Monocytes % (Manual) Nucleated RBC % Seg Neutrophils # Seg Neutrophils # Man Lymphocytes # (Manual) Monocytes # (Manual) Percent Retic Haptoglobin PT INR Fibrinogen D-Dimer POC ABG pH POC ABG pCO2 POC ABG pO2 Sodium Potassium 2.9 L* Chloride Carbon Dioxide BUN Creatinine 2.3 H Glucose 142 H POC Glucose 44 L 111 H Lactic Acid Calcium 8.0 L Phosphorus Magnesium Iron TIBC Transferrin Total Bilirubin Direct Bilirubin AST ALT Alkaline Phosphatase Lactate Dehydrogenase CK-MB (CK-2) Troponin T C-Reactive Protein Total Protein Albumin Triglycerides Cholesterol HDL Cholesterol Vitamin B12 Urine Creatinine Urine Total Protein Heparin-induced Plt Ab Hep Bs Antibody, Quant Crossmatch 12/25/16 12/25/16 12/25/16 07:30 12:08 16:43 WBC RBC Hgb Hct MCV MCHC RDW Plt Count Lymph % (Auto) [place] % (Auto) [place] # Baso # Seg Neutrophils % Seg Neuts % (Manual) Lymphocytes % (Manual) Monocytes % (Manual) Nucleated RBC % Seg Neutrophils # Seg Neutrophils # Man Lymphocytes # (Manual) Monocytes # (Manual) Percent Retic Haptoglobin PT INR Fibrinogen D-Dimer POC ABG pH POC ABG pCO2 POC ABG pO2 Sodium Potassium Chloride Carbon Dioxide BUN Creatinine Glucose POC Glucose 127 H 154 H 235 H Lactic Acid Calcium Phosphorus Magnesium Iron TIBC Transferrin Total Bilirubin Direct Bilirubin AST ALT Alkaline Phosphatase Lactate Dehydrogenase CK-MB (CK-2) Troponin T C-Reactive Protein Total Protein Albumin Triglycerides Cholesterol HDL Cholesterol Vitamin B12 Urine Creatinine Urine Total Protein Heparin-induced Plt Ab Hep Bs Antibody, Quant Crossmatch 12/25/16 12/26/16 12/26/16 23:30 07:49 10:21 WBC RBC Hgb Hct MCV MCHC RDW Plt Count Lymph % (Auto) [place] % (Auto) [place] # Baso # Seg Neutrophils % Seg Neuts % (Manual) Lymphocytes % (Manual) Monocytes % (Manual) Nucleated RBC % Seg Neutrophils # Seg Neutrophils # Man Lymphocytes # (Manual) Monocytes # (Manual) Percent Retic Haptoglobin PT INR Fibrinogen D-Dimer POC ABG pH POC ABG pCO2 POC ABG pO2 Sodium Potassium Chloride Carbon Dioxide BUN Creatinine Glucose POC Glucose 54 L 53 L 154 H Lactic Acid Calcium Phosphorus Magnesium Iron TIBC Transferrin Total Bilirubin Direct Bilirubin AST ALT Alkaline Phosphatase Lactate Dehydrogenase CK-MB (CK-2) Troponin T C-Reactive Protein Total Protein Albumin Triglycerides Cholesterol HDL Cholesterol Vitamin B12 Urine Creatinine Urine Total Protein Heparin-induced Plt Ab Hep Bs Antibody, Quant Crossmatch 12/26/16 12/26/16 12/26/16 12:19 16:14 Unknown WBC RBC Hgb Hct MCV MCHC RDW Plt Count Lymph % (Auto) [place] % (Auto) [place] # Baso # Seg Neutrophils % Seg Neuts % (Manual) Lymphocytes % (Manual) Monocytes % (Manual) Nucleated RBC % Seg Neutrophils # Seg Neutrophils # Man Lymphocytes # (Manual) Monocytes # (Manual) Percent Retic Haptoglobin PT INR Fibrinogen D-Dimer POC ABG pH POC ABG pCO2 POC ABG pO2 Sodium Potassium Chloride Carbon Dioxide BUN Creatinine 2.3 H Glucose POC Glucose 310 H Lactic Acid Calcium 8.3 L Phosphorus Magnesium 1.50 L Iron TIBC Transferrin Total Bilirubin Direct Bilirubin AST ALT Alkaline Phosphatase Lactate Dehydrogenase CK-MB (CK-2) Troponin T C-Reactive Protein Total Protein Albumin Triglycerides Cholesterol HDL Cholesterol Vitamin B12 Urine Creatinine Urine Total Protein Heparin-induced Plt Ab Hep Bs Antibody, Quant Crossmatch 12/26/16 12/26/16 12/27/16 Unknown Unknown 04:47 WBC RBC 2.95 L Hgb 9.0 L Hct 26.5 L MCV MCHC RDW 16.6 H Plt Count Lymph % (Auto) [place] % (Auto) [place] # Baso # Seg Neutrophils % Seg Neuts % (Manual) Lymphocytes % (Manual) Monocytes % (Manual) Nucleated RBC % Seg Neutrophils # Seg Neutrophils # Man Lymphocytes # (Manual) Monocytes # (Manual) Percent Retic Haptoglobin PT INR Fibrinogen D-Dimer POC ABG pH POC ABG pCO2 POC ABG pO2 Sodium Potassium Chloride Carbon Dioxide BUN Creatinine 2.3 H Glucose 157 H POC Glucose 406 H Lactic Acid Calcium 7.7 L Phosphorus Magnesium Iron TIBC Transferrin Total Bilirubin Direct Bilirubin AST ALT Alkaline Phosphatase Lactate Dehydrogenase CK-MB (CK-2) Troponin T C-Reactive Protein Total Protein Albumin Triglycerides Cholesterol HDL Cholesterol Vitamin B12 Urine Creatinine Urine Total Protein Heparin-induced Plt Ab Hep Bs Antibody, Quant Crossmatch 12/27/16 12/27/16 12/27/16 07:54 11:09 15:40 WBC RBC Hgb Hct MCV MCHC RDW Plt Count Lymph % (Auto) [place] % (Auto) [place] # Baso # Seg Neutrophils % Seg Neuts % (Manual) Lymphocytes % (Manual) Monocytes % (Manual) Nucleated RBC % Seg Neutrophils # Seg Neutrophils # Man Lymphocytes # (Manual) Monocytes # (Manual) Percent Retic Haptoglobin PT INR Fibrinogen D-Dimer POC ABG pH POC ABG pCO2 POC ABG pO2 Sodium Potassium Chloride Carbon Dioxide BUN Creatinine Glucose POC Glucose 500 H 301 H 208 H Lactic Acid Calcium Phosphorus Magnesium Iron TIBC Transferrin Total Bilirubin Direct Bilirubin AST ALT Alkaline Phosphatase Lactate Dehydrogenase CK-MB (CK-2) Troponin T C-Reactive Protein Total Protein Albumin Triglycerides Cholesterol HDL Cholesterol Vitamin B12 Urine Creatinine Urine Total Protein Heparin-induced Plt Ab Hep Bs Antibody, Quant Crossmatch 12/27/16 12/28/16 12/28/16 21:00 06:17 07:30 WBC RBC Hgb Hct MCV MCHC RDW Plt Count Lymph % (Auto) [place] % (Auto) [place] # Baso # Seg Neutrophils % Seg Neuts % (Manual) Lymphocytes % (Manual) Monocytes % (Manual) Nucleated RBC % Seg Neutrophils # Seg Neutrophils # Man Lymphocytes # (Manual) Monocytes # (Manual) Percent Retic Haptoglobin PT INR Fibrinogen D-Dimer POC ABG pH POC ABG pCO2 POC ABG pO2 Sodium Potassium 5.1 H D Chloride Carbon Dioxide 19 L BUN 24 H Creatinine 2.0 H Glucose 394 H POC Glucose 347 H 409 H Lactic Acid Calcium 7.7 L Phosphorus Magnesium Iron TIBC Transferrin Total Bilirubin Direct Bilirubin AST ALT Alkaline Phosphatase Lactate Dehydrogenase CK-MB (CK-2) Troponin T C-Reactive Protein Total Protein Albumin Triglycerides Cholesterol HDL Cholesterol Vitamin B12 Urine Creatinine Urine Total Protein Heparin-induced Plt Ab Hep Bs Antibody, Quant Crossmatch 12/28/16 12/28/16 12/28/16 11:33 16:38 20:59 WBC RBC Hgb Hct MCV MCHC RDW Plt Count Lymph % (Auto) [place] % (Auto) [place] # Baso # Seg Neutrophils % Seg Neuts % (Manual) Lymphocytes % (Manual) Monocytes % (Manual) Nucleated RBC % Seg Neutrophils # Seg Neutrophils # Man Lymphocytes # (Manual) Monocytes # (Manual) Percent Retic Haptoglobin PT INR Fibrinogen D-Dimer POC ABG pH POC ABG pCO2 POC ABG pO2 Sodium Potassium Chloride Carbon Dioxide BUN Creatinine Glucose POC Glucose 260 H 240 H 45 L Lactic Acid Calcium Phosphorus Magnesium Iron TIBC Transferrin Total Bilirubin Direct Bilirubin AST ALT Alkaline Phosphatase Lactate Dehydrogenase CK-MB (CK-2) Troponin T C-Reactive Protein Total Protein Albumin Triglycerides Cholesterol HDL Cholesterol Vitamin B12 Urine Creatinine Urine Total Protein Heparin-induced Plt Ab Hep Bs Antibody, Quant Crossmatch 12/28/16 12/29/16 12/29/16 22:14 04:45 05:52 WBC RBC Hgb Hct MCV MCHC RDW Plt Count Lymph % (Auto) [place] % (Auto) [place] # Baso # Seg Neutrophils % Seg Neuts % (Manual) Lymphocytes % (Manual) Monocytes % (Manual) Nucleated RBC % Seg Neutrophils # Seg Neutrophils # Man Lymphocytes # (Manual) Monocytes # (Manual) Percent Retic Haptoglobin PT INR Fibrinogen D-Dimer POC ABG pH POC ABG pCO2 POC ABG pO2 Sodium Potassium Chloride Carbon Dioxide BUN 23 H Creatinine 2.0 H Glucose 166 H POC Glucose 56 L 43 L Lactic Acid Calcium 7.7 L Phosphorus Magnesium Iron TIBC Transferrin Total Bilirubin Direct Bilirubin AST ALT Alkaline Phosphatase Lactate Dehydrogenase CK-MB (CK-2) Troponin T C-Reactive Protein Total Protein Albumin Triglycerides Cholesterol HDL Cholesterol Vitamin B12 Urine Creatinine Urine Total Protein Heparin-induced Plt Ab Hep Bs Antibody, Quant Crossmatch 12/29/16 12/29/16 12/30/16 06:52 11:52 05:00 WBC RBC Hgb Hct MCV MCHC RDW Plt Count Lymph % (Auto) [place] % (Auto) [place] # Baso # Seg Neutrophils % Seg Neuts % (Manual) Lymphocytes % (Manual) Monocytes % (Manual) Nucleated RBC % Seg Neutrophils # Seg Neutrophils # Man Lymphocytes # (Manual) Monocytes # (Manual) Percent Retic Haptoglobin PT INR Fibrinogen D-Dimer POC ABG pH POC ABG pCO2 POC ABG pO2 Sodium Potassium Chloride Carbon Dioxide BUN 20 H Creatinine 2.0 H Glucose 150 H POC Glucose 115 H 143 H Lactic Acid Calcium 7.6 L Phosphorus Magnesium Iron TIBC Transferrin Total Bilirubin Direct Bilirubin AST ALT Alkaline Phosphatase Lactate Dehydrogenase CK-MB (CK-2) Troponin T C-Reactive Protein Total Protein Albumin Triglycerides Cholesterol HDL Cholesterol Vitamin B12 Urine Creatinine Urine Total Protein Heparin-induced Plt Ab Hep Bs Antibody, Quant Crossmatch 12/30/16 12/30/16 12/30/16 07:11 11:36 15:17 WBC RBC Hgb Hct MCV MCHC RDW Plt Count Lymph % (Auto) [place] % (Auto) [place] # Baso # Seg Neutrophils % Seg Neuts % (Manual) Lymphocytes % (Manual) Monocytes % (Manual) Nucleated RBC % Seg Neutrophils # Seg Neutrophils # Man Lymphocytes # (Manual) Monocytes # (Manual) Percent Retic Haptoglobin PT INR Fibrinogen D-Dimer POC ABG pH POC ABG pCO2 POC ABG pO2 Sodium Potassium Chloride Carbon Dioxide BUN Creatinine Glucose POC Glucose 162 H 137 H 123 H Lactic Acid Calcium Phosphorus Magnesium Iron TIBC Transferrin Total Bilirubin Direct Bilirubin AST ALT Alkaline Phosphatase Lactate Dehydrogenase CK-MB (CK-2) Troponin T C-Reactive Protein Total Protein Albumin Triglycerides Cholesterol HDL Cholesterol Vitamin B12 Urine Creatinine Urine Total Protein Heparin-induced Plt Ab Hep Bs Antibody, Quant Crossmatch 12/30/16 12/30/16 12/30/16 21:11 22:13 23:35 WBC RBC Hgb Hct MCV MCHC RDW Plt Count Lymph % (Auto) [place] % (Auto) [place] # Baso # Seg Neutrophils % Seg Neuts % (Manual) Lymphocytes % (Manual) Monocytes % (Manual) Nucleated RBC % Seg Neutrophils # Seg Neutrophils # Man Lymphocytes # (Manual) Monocytes # (Manual) Percent Retic Haptoglobin PT INR Fibrinogen D-Dimer POC ABG pH POC ABG pCO2 POC ABG pO2 Sodium Potassium Chloride Carbon Dioxide BUN Creatinine Glucose POC Glucose < 40 L 40 L 126 H Lactic Acid Calcium Phosphorus Magnesium Iron TIBC Transferrin Total Bilirubin Direct Bilirubin AST ALT Alkaline Phosphatase Lactate Dehydrogenase CK-MB (CK-2) Troponin T C-Reactive Protein Total Protein Albumin Triglycerides Cholesterol HDL Cholesterol Vitamin B12 Urine Creatinine Urine Total Protein Heparin-induced Plt Ab Hep Bs Antibody, Quant Crossmatch 12/31/16 12/31/16 12/31/16 06:38 07:51 08:28 WBC RBC Hgb Hct MCV MCHC RDW Plt Count Lymph % (Auto) [place] % (Auto) [place] # Baso # Seg Neutrophils % Seg Neuts % (Manual) Lymphocytes % (Manual) Monocytes % (Manual) Nucleated RBC % Seg Neutrophils # Seg Neutrophils # Man Lymphocytes # (Manual) Monocytes # (Manual) Percent Retic Haptoglobin PT INR Fibrinogen D-Dimer POC ABG pH POC ABG pCO2 POC ABG pO2 Sodium Potassium Chloride Carbon Dioxide BUN 20 H Creatinine 1.6 H Glucose 28 L* POC Glucose 44 L 155 H Lactic Acid Calcium 7.4 L Phosphorus Magnesium Iron TIBC Transferrin Total Bilirubin Direct Bilirubin AST ALT Alkaline Phosphatase Lactate Dehydrogenase CK-MB (CK-2) Troponin T C-Reactive Protein Total Protein Albumin Triglycerides Cholesterol HDL Cholesterol Vitamin B12 Urine Creatinine Urine Total Protein Heparin-induced Plt Ab Hep Bs Antibody, Quant Crossmatch 12/31/16 12/31/16 12/31/16 11:27 12:59 16:10 WBC RBC Hgb Hct MCV MCHC RDW Plt Count Lymph % (Auto) [place] % (Auto) [place] # Baso # Seg Neutrophils % Seg Neuts % (Manual) Lymphocytes % (Manual) Monocytes % (Manual) Nucleated RBC % Seg Neutrophils # Seg Neutrophils # Man Lymphocytes # (Manual) Monocytes # (Manual) Percent Retic Haptoglobin PT INR Fibrinogen D-Dimer POC ABG pH POC ABG pCO2 POC ABG pO2 Sodium Potassium Chloride Carbon Dioxide BUN Creatinine Glucose POC Glucose 113 H 113 H 216 H Lactic Acid Calcium Phosphorus Magnesium Iron TIBC Transferrin Total Bilirubin Direct Bilirubin AST ALT Alkaline Phosphatase Lactate Dehydrogenase CK-MB (CK-2) Troponin T C-Reactive Protein Total Protein Albumin Triglycerides Cholesterol HDL Cholesterol Vitamin B12 Urine Creatinine Urine Total Protein Heparin-induced Plt Ab Hep Bs Antibody, Quant Crossmatch 12/31/16 01/01/17 01/01/17 21:22 01:11 01:46 WBC RBC Hgb Hct MCV MCHC RDW Plt Count Lymph % (Auto) [place] % (Auto) [place] # Baso # Seg Neutrophils % Seg Neuts % (Manual) Lymphocytes % (Manual) Monocytes % (Manual) Nucleated RBC % Seg Neutrophils # Seg Neutrophils # Man Lymphocytes # (Manual) Monocytes # (Manual) Percent Retic Haptoglobin PT INR Fibrinogen D-Dimer POC ABG pH POC ABG pCO2 POC ABG pO2 Sodium Potassium Chloride Carbon Dioxide BUN Creatinine Glucose POC Glucose 410 H 129 H Lactic Acid Calcium Phosphorus Magnesium 1.40 L Iron TIBC Transferrin Total Bilirubin Direct Bilirubin AST ALT Alkaline Phosphatase Lactate Dehydrogenase CK-MB (CK-2) Troponin T C-Reactive Protein Total Protein Albumin Triglycerides Cholesterol HDL Cholesterol Vitamin B12 Urine Creatinine Urine Total Protein Heparin-induced Plt Ab Hep Bs Antibody, Quant Crossmatch 01/01/17 01/01/17 01/01/17 05:00 08:07 11:56 WBC RBC Hgb Hct MCV MCHC RDW Plt Count Lymph % (Auto) [place] % (Auto) [place] # Baso # Seg Neutrophils % Seg Neuts % (Manual) Lymphocytes % (Manual) Monocytes % (Manual) Nucleated RBC % Seg Neutrophils # Seg Neutrophils # Man Lymphocytes # (Manual) Monocytes # (Manual) Percent Retic Haptoglobin PT INR Fibrinogen D-Dimer POC ABG pH POC ABG pCO2 POC ABG pO2 Sodium Potassium 5.2 H D Chloride Carbon Dioxide BUN 22 H Creatinine 1.6 H Glucose 167 H POC Glucose 431 H 216 H Lactic Acid Calcium 7.8 L Phosphorus Magnesium Iron TIBC Transferrin Total Bilirubin Direct Bilirubin AST ALT Alkaline Phosphatase Lactate Dehydrogenase CK-MB (CK-2) Troponin T C-Reactive Protein Total Protein Albumin Triglycerides Cholesterol HDL Cholesterol Vitamin B12 Urine Creatinine Urine Total Protein Heparin-induced Plt Ab Hep Bs Antibody, Quant Crossmatch 01/01/17 01/01/17 01/02/17 16:02 20:53 05:10 WBC RBC Hgb Hct MCV MCHC RDW Plt Count Lymph % (Auto) [place] % (Auto) [place] # Baso # Seg Neutrophils % Seg Neuts % (Manual) Lymphocytes % (Manual) Monocytes % (Manual) Nucleated RBC % Seg Neutrophils # Seg Neutrophils # Man Lymphocytes # (Manual) Monocytes # (Manual) Percent Retic Haptoglobin PT INR Fibrinogen D-Dimer POC ABG pH POC ABG pCO2 POC ABG pO2 Sodium Potassium Chloride Carbon Dioxide BUN 21 H Creatinine 1.5 H Glucose 313 H POC Glucose 491 H 114 H Lactic Acid Calcium 8.3 L Phosphorus Magnesium Iron TIBC Transferrin Total Bilirubin Direct Bilirubin AST ALT Alkaline Phosphatase Lactate Dehydrogenase CK-MB (CK-2) Troponin T C-Reactive Protein Total Protein Albumin Triglycerides Cholesterol HDL Cholesterol Vitamin B12 Urine Creatinine Urine Total Protein Heparin-induced Plt Ab Hep Bs Antibody, Quant Crossmatch 01/02/17 01/02/17 01/02/17 05:10 06:03 09:04 WBC 12.7 H RBC 2.77 L Hgb 8.0 L Hct 25.5 L MCV MCHC RDW 16.6 H Plt Count Lymph % (Auto) [place] % (Auto) [place] # Baso # Seg Neutrophils % Seg Neuts % (Manual) Lymphocytes % (Manual) Monocytes % (Manual) Nucleated RBC % Seg Neutrophils # Seg Neutrophils # Man Lymphocytes # (Manual) Monocytes # (Manual) Percent Retic Haptoglobin PT INR Fibrinogen D-Dimer POC ABG pH POC ABG pCO2 POC ABG pO2 Sodium Potassium Chloride Carbon Dioxide BUN Creatinine Glucose POC Glucose 304 H 52 L Lactic Acid Calcium Phosphorus Magnesium Iron TIBC Transferrin Total Bilirubin Direct Bilirubin AST ALT Alkaline Phosphatase Lactate Dehydrogenase CK-MB (CK-2) Troponin T C-Reactive Protein Total Protein Albumin Triglycerides Cholesterol HDL Cholesterol Vitamin B12 Urine Creatinine Urine Total Protein Heparin-induced Plt Ab Hep Bs Antibody, Quant Crossmatch 01/02/17 01/02/17 01/02/17 12:06 16:35 22:55 WBC RBC Hgb Hct MCV MCHC RDW Plt Count Lymph % (Auto) [place] % (Auto) [place] # Baso # Seg Neutrophils % Seg Neuts % (Manual) Lymphocytes % (Manual) Monocytes % (Manual) Nucleated RBC % Seg Neutrophils # Seg Neutrophils # Man Lymphocytes # (Manual) Monocytes # (Manual) Percent Retic Haptoglobin PT INR Fibrinogen D-Dimer POC ABG pH POC ABG pCO2 POC ABG pO2 Sodium Potassium Chloride Carbon Dioxide BUN Creatinine Glucose POC Glucose 157 H 286 H 324 H Lactic Acid Calcium Phosphorus Magnesium Iron TIBC Transferrin Total Bilirubin Direct Bilirubin AST ALT Alkaline Phosphatase Lactate Dehydrogenase CK-MB (CK-2) Troponin T C-Reactive Protein Total Protein Albumin Triglycerides Cholesterol HDL Cholesterol Vitamin B12 Urine Creatinine Urine Total Protein Heparin-induced Plt Ab Hep Bs Antibody, Quant Crossmatch 01/03/17 01/03/17 01/03/17 07:20 07:20 08:45 WBC RBC 2.39 L Hgb 6.8 L Hct 21.5 L MCV MCHC RDW 16.7 H Plt Count Lymph % (Auto) [place] % (Auto) [place] # Baso # Seg Neutrophils % Seg Neuts % (Manual) Lymphocytes % (Manual) Monocytes % (Manual) Nucleated RBC % Seg Neutrophils # Seg Neutrophils # Man Lymphocytes # (Manual) Monocytes # (Manual) Percent Retic Haptoglobin PT INR Fibrinogen D-Dimer POC ABG pH POC ABG pCO2 POC ABG pO2 Sodium Potassium Chloride 110.5 H Carbon Dioxide BUN Creatinine 1.5 H Glucose 327 H POC Glucose 428 H Lactic Acid Calcium 7.3 L Phosphorus Magnesium Iron TIBC Transferrin Total Bilirubin Direct Bilirubin AST ALT Alkaline Phosphatase Lactate Dehydrogenase CK-MB (CK-2) Troponin T C-Reactive Protein Total Protein Albumin Triglycerides Cholesterol HDL Cholesterol Vitamin B12 Urine Creatinine Urine Total Protein Heparin-induced Plt Ab Hep Bs Antibody, Quant Crossmatch 01/03/17 01/03/17 01/03/17 11:18 12:30 16:08 WBC RBC Hgb Hct MCV MCHC RDW Plt Count Lymph % (Auto) [place] % (Auto) [place] # Baso # Seg Neutrophils % Seg Neuts % (Manual) Lymphocytes % (Manual) Monocytes % (Manual) Nucleated RBC % Seg Neutrophils # Seg Neutrophils # Man Lymphocytes # (Manual) Monocytes # (Manual) Percent Retic Haptoglobin PT INR Fibrinogen D-Dimer POC ABG pH POC ABG pCO2 POC ABG pO2 Sodium Potassium Chloride Carbon Dioxide BUN Creatinine Glucose POC Glucose 195 H 141 H Lactic Acid Calcium Phosphorus Magnesium Iron TIBC Transferrin Total Bilirubin Direct Bilirubin AST ALT Alkaline Phosphatase Lactate Dehydrogenase CK-MB (CK-2) Troponin T C-Reactive Protein Total Protein Albumin Triglycerides Cholesterol HDL Cholesterol Vitamin B12 Urine Creatinine Urine Total Protein Heparin-induced Plt Ab Hep Bs Antibody, Quant Crossmatch See Detail 01/03/17 21:29 WBC RBC Hgb Hct MCV MCHC RDW Plt Count Lymph % (Auto) [place] % (Auto) [place] # Baso # Seg Neutrophils % Seg Neuts % (Manual) Lymphocytes % (Manual) Monocytes % (Manual) Nucleated RBC % Seg Neutrophils # Seg Neutrophils # Man Lymphocytes # (Manual) Monocytes # (Manual) Percent Retic Haptoglobin PT INR Fibrinogen D-Dimer POC ABG pH POC ABG pCO2 POC ABG pO2 Sodium Potassium Chloride Carbon Dioxide BUN Creatinine Glucose POC Glucose 55 L Lactic Acid Calcium Phosphorus Magnesium Iron TIBC Transferrin Total Bilirubin Direct Bilirubin AST ALT Alkaline Phosphatase Lactate Dehydrogenase CK-MB (CK-2) Troponin T C-Reactive Protein Total Protein Albumin Triglycerides Cholesterol HDL Cholesterol Vitamin B12 Urine Creatinine Urine Total Protein Heparin-induced Plt Ab Hep Bs Antibody, Quant Crossmatch
[2017-01-04 07:40] LABS: Hemoglobin 7.8 gm/dl (10.1-14.3); Mean Corpuscular HGB Conc 32 % (30-34); Mean Corpuscular Hemoglobin 29 pg (28-32); Mean Corpuscular Volume 89 fl (79-97); Platelet Count 389 K/mm3 (140-440); Red Blood Count 2.69 M/mm3 (3.65-5.03); White Blood Count 10.1 K/mm3 (4.5-11.0)
[2017-01-04 07:52] LABS: BUN/Creatinine Ratio 7.85; Calcium 7.5 mg/dL (8.4-10.2); Chloride 102.3 mmol/L (98-107); Potassium 3.9 mmol/L (3.6-5.0)
[2017-01-04] MEDS: NOVOLOG SUB-Q SCH ×3 (09:03→19:36)
[2017-01-04] MEDS: PEPCID PO SCH (11:06)
[2017-01-04] MEDS: LOPRESSOR PO SCH ×2 (11:06→21:42)
[2017-01-04 12:54] LABS: Alanine Aminotransferase 6 units/L (7-56); Albumin 2.7 g/dL (3.9-5); Albumin/Globulin Ratio 0.9 %; Alkaline Phosphatase 161 units/L (35-129); Total Protein 5.6 g/dL (6.3-8.2)
[2017-01-04 12:57] LABS: Bilirubin,Direct < 0.2 mg/dL (0-0.2)
--- NOTE | 2017-01-04 14:11 | Event Note ---
Date: 01/04/17 Pathology Report Reviewed suggestive of [employer] CXR's and CT scan reviewed and not inconsistent with [employer] Considering that she has received extensive broad spectrum AB's coverage during this hospitalization i will elect to treat with systemic steroids and taper outpatient She is however growing multiple organisms on bronch tissue culture also and needs to be covered with appropriate AB's since she is about to go on high dose systemic steroids - will need PFT's outpatient - Prednisone 60mg p.o. daily x 4 weeks for now - At discharge f/up in outpatient clinic within 2 weeks and adjustment decisions will be made - need to tighten glycemic control especially while on systemic steroids - discussed with attending and she has been counselled extensively on medication and medical compliance - i suggest getting ID opinion about appropriate p.o. regimen re: sensitivity panels
--- NOTE | 2017-01-04 15:49 | Progress Note ---
Assessment and Plan Assessment and plan: The patient is a 46-year-old woman with history of insulin-dependent diabetes mellitus, hypertension, recent SAH and dyslipidemia who presented with DKA, AMS and STEMI with V. fib arrest requiring IV amiodarone suppression. she was intubated and subsequently extubated. she was treated with IV insulin drip for documented DKA without ketones documentation but she was acidotic on admission and pressors but subsequently weaned off and transferred to the medical floor. Patient has had multiple admissions in the hospital multiple times and near experience in multiple of the [facility] secondary to Possible aspiration penumonitis. Inital BCX with coagulase negative staff, 1/2 bottles ?contaminate Repeat cultures, no growth. emperic abx was discontinued, Patient proceeded to have bronchoscopy due to persistence of findings on chest x-ray and chest CT. Cultures did grow multiple organisms in the bronchial tissue with gram-negative and gram-positive. Also noted to be resistant organisms in addition. 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 We'll start patient on prednisone 60 mg daily. PFT as outpatient. Discussed with patient extensively about glycemic control patient verbalized understanding Will reconsult ID for recommendation based on Micro data Star also on Augumentin. Uncontrolled DM -Labile -CONTINUE CARB CONSISTENT DIET -70/30 10 units bid. Continue sliding scale Monitor but decrease at moderate dose scale due to recurrent hypoglycemia. Hold or decrease dose by 50 % when patient not eating due to Gastroenteritis. Gastroenteritis. Nausea and vomiting. Acute hypoxic respiratory failure. Resolved. Now extubated, stable right upper lobe opacity. AWAITING PATHOLOGY FROM [facility]. cytology showing no malignant cells, Severe Metabolic acidosis Resolved. Neprhology following Cardiac arrest with PEA arrest-->V. fib/?torsades was shocked twice - Likely from hyperkalemia, currently patient is stable. Was treated with amiodarone -Echo EF 40-45% - No recurrence Acute kidney injury secondary to ATN - Nephrology is following. HD Held ASHELY improving. Cr 2.3 for past 3 days NOW 1.4. NO FURTHER NEED FOR DIALYSIS Hyperkalemia- Give Kayxalate. Malnutrition- Moderate: Nutrition consult DKA: - resolved - On sliding insulin Acute metabolic encephalopathy, resolved Nstemi Type 2- Likely from Shock. Moderate protein calorie malnutrition Pick Up Driver input noted Thrombocytopenia - Resolved Acute on chronic anemia of chronic disease, s/p total 4 units PRBC this admission - STABLE TODAY, will monitor Depression - Psych consulted and recommend outpatient mental health follow up. Disposition -PENDING PATHOLOGY -DVT prophylaxis: SCDs only due to recent SAH History Interval history: Patient seen and examined, NAUSEA with vomiting today refusing diets. No fever noted. Hospitalist Physical - Physical exam Narrative exam: VITAL SIGNS: Reviewed. GENERAL: The patient appeared lethargic appearing , cachetic. Vital signs as documented. HEAD: No signs of head trauma. temporal wasting noted EYES: Pupils are equal. Extraocular motions intact. EARS: Hearing grossly intact. MOUTH: Oropharynx is normal. NECK: No adenopathy, no JVD. CHEST: Chest with diminshed breath sounds bilaterally. No wheezes, rales, or rhonchi CARDIAC: Regular rate and rhythm. S1 and S2, without murmurs, gallops, or rubs. VASCULAR: Trace Edema. Peripheral pulses normal and equal in all extremities. ABDOMEN: Soft, without detectable tenderness. No sign of distention. No rebound or guarding, and no masses palpated. Bowel Sounds normal. MUSCULOSKELETAL: Good range of motion of all major joints. Extremities without clubbing, cyanosis. Trace edema. NEUROLOGIC EXAM: Alert and oriented x 3. No focal sensory or strength deficits. Speech normal. Follows commands. PSYCHIATRIC: Mood normal. SKIN: No rash or lesions. - Constitutional Vitals: Temp Pulse Resp BP Pulse Ox 97.6 F 101 H 18 152/90 93 01/04/17 12:00 01/04/17 12:00 01/04/17 12:00 01/04/17 12:00 01/04/17 12:00 General appearance: Present: no acute distress (resting comfortably) Results - Labs CBC & Chem 7: 01/04/17 06:57 01/04/17 06:57 Labs: Laboratory Last Values WBC 10.1 K/mm3 (4.5-11.0) 01/04/17 06:57 RBC 2.69 M/mm3 (3.65-5.03) L 01/04/17 06:57 Hgb 7.8 gm/dl (10.1-14.3) L 01/04/17 06:57 Hct 24.0 % (30.3-42.9) L 01/04/17 06:57 MCV 89 fl (79-97) 01/04/17 06:57 MCH 29 pg (28-32) 01/04/17 06:57 MCHC 32 % (30-34) 01/04/17 06:57 RDW 16.0 % (13.2-15.2) H 01/04/17 06:57 Plt Count 389 K/mm3 (140-440) 01/04/17 06:57 Lymph % (Auto) 8.1 % (13.4-35.0) L 12/22/16 06:45 [place] % (Auto) 5.3 % (0.0-7.3) 12/22/16 06:45 Eos % (Auto) 1.4 % (0.0-4.3) 12/22/16 06:45 Baso % (Auto) 0.9 % (0.0-1.8) 12/22/16 06:45 Lymph # 1.4 K/mm3 (1.2-5.4) 12/22/16 06:45 [place] # 0.9 K/mm3 (0.0-0.8) H 12/22/16 06:45 Eos # 0.2 K/mm3 (0.0-0.4) 12/22/16 06:45 Baso # 0.2 K/mm3 (0.0-0.1) H 12/22/16 06:45 Add Manual Diff Complete 12/13/16 07:49 Total Counted 100 12/13/16 07:49 Seg Neutrophils % 84.3 % (40.0-70.0) H 12/22/16 06:45 Seg Neuts % (Manual) 89.0 % (40.0-70.0) H 12/13/16 07:49 Band Neutrophils % 1.0 % 12/13/16 07:49 Lymphocytes % (Manual) 7.0 % (13.4-35.0) L 12/13/16 07:49 Reactive Lymphs % (Man) 0 % 12/13/16 07:49 Monocytes % (Manual) 3.0 % (0.0-7.3) 12/13/16 07:49 Eosinophils % (Manual) 0 % (0.0-4.3) 12/13/16 07:49 Basophils % (Manual) 0 % (0.0-1.8) 12/13/16 07:49 Metamyelocytes % 0 % 12/13/16 07:49 Myelocytes % 0 % 12/13/16 07:49 Promyelocytes % 0 % 12/13/16 07:49 Blast Cells % 0 % 12/13/16 07:49 Nucleated RBC % Not Reportable 12/13/16 07:49 Seg Neutrophils # 14.6 K/mm3 (1.8-7.7) H 12/22/16 06:45 Seg Neutrophils # Man 21.4 K/mm3 (1.8-7.7) H 12/13/16 07:49 Band Neutrophils # 0.2 K/mm3 12/13/16 07:49 Lymphocytes # (Manual) 1.7 K/mm3 (1.2-5.4) 12/13/16 07:49 Abs React Lymphs (Man) 0.0 K/mm3 12/13/16 07:49 Monocytes # (Manual) 0.7 K/mm3 (0.0-0.8) 12/13/16 07:49 Eosinophils # (Manual) 0.0 K/mm3 (0.0-0.4) 12/13/16 07:49 Basophils # (Manual) 0.0 K/mm3 (0.0-0.1) 12/13/16 07:49 Metamyelocytes # 0.0 K/mm3 12/13/16 07:49 Myelocytes # 0.0 K/mm3 12/13/16 07:49 Promyelocytes # 0.0 K/mm3 12/13/16 07:49 Blast Cells # 0.0 K/mm3 12/13/16 07:49 WBC Morphology Not Reportable 12/13/16 07:49 Hypersegmented Neuts Not Reportable 12/13/16 07:49 Hyposegmented Neuts Not Reportable 12/13/16 07:49 Hypogranular Neuts Not Reportable 12/13/16 07:49 Smudge Cells Not Reportable 12/13/16 07:49 Toxic Granulation Not Reportable 12/13/16 07:49 Toxic Vacuolation Not Reportable 12/13/16 07:49 Dohle Bodies Not Reportable 12/13/16 07:49 Pelger-Huet Anomaly Not Reportable 12/13/16 07:49 Mary Rods Not Reportable 12/13/16 07:49 Platelet Estimate Cons 12/13/16 07:49 Clumped Platelets Not Reportable 12/13/16 07:49 Plt Clumps, EDTA Not Reportable 12/13/16 07:49 Large Platelets Rare 12/13/16 07:49 Giant Platelets Not Reportable 12/13/16 07:49 Platelet Satelliting Not Reportable 12/13/16 07:49 Plt Morphology Comment Not Reportable 12/13/16 07:49 RBC Morphology Not Reportable 12/13/16 07:49 Dimorphic RBCs Not Reportable 12/13/16 07:49 Polychromasia Not Reportable 12/13/16 07:49 Hypochromasia 1+ 12/13/16 07:49 Poikilocytosis Not Reportable 12/13/16 07:49 Anisocytosis 1+ 12/13/16 07:49 Microcytosis Not Reportable 12/13/16 07:49 Macrocytosis Not Reportable 12/13/16 07:49 Spherocytes Not Reportable 12/13/16 07:49 Pappenheimer Bodies Not Reportable 12/13/16 07:49 Sickle Cells Not Reportable 12/13/16 07:49 Target Cells Few 12/13/16 07:49 Tear Drop Cells Not Reportable 12/13/16 07:49 Ovalocytes Not Reportable 12/13/16 07:49 Helmet Cells Not Reportable 12/13/16 07:49 [place]agener Bodies Not Reportable 12/13/16 07:49 [place] Rings Not Reportable 12/13/16 07:49 Jerri Cells Not Reportable 12/13/16 07:49 Bite Cells Not Reportable 12/13/16 07:49 Crenated Cell Not Reportable 12/13/16 07:49 Elliptocytes Not Reportable 12/13/16 07:49 Acanthocytes (Spur) Not Reportable 12/13/16 07:49 Rouleaux Not Reportable 12/13/16 07:49 Hemoglobin C Crystals Not Reportable 12/13/16 07:49 Schistocytes Not Reportable 12/13/16 07:49 Malaria parasites Not Reportable 12/13/16 07:49 Percent Retic 0.23 % (0.78-2.58) L 12/09/16 11:29 Michael Bodies Not Reportable 12/13/16 07:49 Haptoglobin 271 mg/dL (43-212) H 12/08/16 21:30 Hem Pathologist Commnt No 12/13/16 07:49 PT 15.3 Sec. (12.2-14.9) H 12/08/16 19:00 INR 1.22 (0.87-1.13) H 12/08/16 19:00 APTT 36.2 Sec. (24.2-36.6) 12/08/16 19:00 Fibrinogen 563 mg/dl (211-480) H 12/08/16 19:00 D-Dimer 5507.36 ng/mlDDU (0-234) H 12/08/16 19:00 Heparin Anti-Xa, Unfract Negative (Negative) 12/09/16 13:27 POC ABG pH 7.326 (7.35-7.45) L 12/09/16 12:02 POC ABG pCO2 37.7 (35-45) 12/09/16 12:02 POC ABG pO2 115 (80-105) H 12/09/16 12:02 POC ABG HCO3 19.7 12/09/16 12:02 POC ABG Total CO2 21 12/09/16 12:02 POC ABG O2 Sat 98 12/09/16 12:02 POC ABG Base Excess -6 12/09/16 12:02 FiO2 30 % 12/09/16 12:02 Sodium 139 mmol/L (137-145) 01/04/17 06:57 Potassium 3.9 mmol/L (3.6-5.0) 01/04/17 06:57 Chloride 102.3 mmol/L (98-107) 01/04/17 06:57 Carbon Dioxide 23 mmol/L (22-30) 01/04/17 06:57 Anion Gap 18 mmol/L 01/04/17 06:57 BUN 11 mg/dL (7-17) 01/04/17 06:57 Creatinine 1.4 mg/dL (0.7-1.2) H 01/04/17 06:57 Estimated GFR 49 ml/min 01/04/17 06:57 BUN/Creatinine Ratio 7.85 % 01/04/17 06:57 Glucose 59 mg/dL (65-100) L 01/04/17 06:57 POC Glucose 112 (70-105) H 01/04/17 08:01 Lactic Acid 6.90 mmol/L (0.7-2.0) H* 12/07/16 07:30 Calcium 7.5 mg/dL (8.4-10.2) L 01/04/17 06:57 Phosphorus 2.60 mg/dL (2.5-4.5) 12/26/16 Unknown Magnesium 1.40 mg/dL (1.7-2.3) L 01/01/17 01:46 Iron 66 ug/dL (37-170) 12/21/16 05:00 TIBC 193.20 mcg/dL (250-450) L 12/21/16 05:00 Transferrin 138 mg/dl (192-382) L 12/21/16 05:00 Ferritin 321.4 ng/mL (13.0-400.0) 12/21/16 05:00 Total Bilirubin 0.20 mg/dL (0.1-1.2) 01/04/17 06:57 Direct Bilirubin < 0.2 mg/dL (0-0.2) 01/04/17 06:57 Indirect Bilirubin 0.5 mg/dL 12/07/16 21:35 AST 15 units/L (5-40) 01/04/17 06:57 ALT 6 units/L (7-56) L 01/04/17 06:57 Alkaline Phosphatase 161 units/L (35-129) H 01/04/17 06:57 Lactate Dehydrogenase 382 units/L (91-180) H 12/08/16 19:00 Total Creatine Kinase 123 units/L (30-135) 12/04/16 09:55 CK-MB (CK-2) 4.6 ng/mL (0.0-4.0) H 12/04/16 09:55 CK-MB (CK-2) Rel Index 3.7 (0-4) 12/04/16 09:55 Troponin T 0.140 ng/mL (0.00-0.029) H* D 12/04/16 09:55 C-Reactive Protein 39.40 mg/dL (0.00-1.30) H 12/07/16 06:00 Total Protein 5.6 g/dL (6.3-8.2) L 01/04/17 06:57 Albumin 2.7 g/dL (3.9-5) L 01/04/17 06:57 Albumin/Globulin Ratio 0.9 % 01/04/17 06:57 Triglycerides 570 mg/dL (2-149) H 12/04/16 07:55 Cholesterol 221 mg/dL (50-199) H 12/04/16 07:55 LDL Cholesterol Direct TNR 12/04/16 07:55 HDL Cholesterol 37 mg/dL (40-59) L 12/04/16 07:55 Cholesterol/HDL Ratio 5.97 % 12/04/16 07:55 Serotonin Release Assay See scanned report 12/09/16 13:27 Vitamin B12 > 2000 pg/mL (211-911) H 12/09/16 13:27 Folate 8.10 ng/mL (7.3-26.0) 12/09/16 13:27 TSH 1.600 mlU/mL (0.270-4.200) 12/03/16 23:20 Urine Color Yellow (Yellow) 12/04/16 11:25 Urine Turbidity Slightly-cloudy (Clear) 12/04/16 11:25 Urine pH 5.0 (5.0-7.0) 12/04/16 11:25 Ur Specific [place] 1.018 (1.003-1.030) 12/04/16 11:25 Urine Protein 30 mg/dl mg/dL (Negative) 12/04/16 11:25 Urine Glucose (UA) >=500 mg/dL (Negative) 12/04/16 11:25 Urine Ketones Tr mg/dL (Negative) 12/04/16 11:25 Urine Blood Sm (Negative) 12/04/16 11:25 Urine Nitrite Neg (Negative) 12/04/16 11:25 Urine Bilirubin Neg (Negative) 12/04/16 11:25 Urine Urobilinogen < 2.0 mg/dL (<2.0) 12/04/16 11:25 Ur Leukocyte Esterase Neg (Negative) 12/04/16 11:25 Urine WBC (Auto) 4.0 /HPF (0.0-6.0) 12/04/16 11:25 Urine RBC (Auto) 2.0 /HPF (0.0-6.0) 12/04/16 11:25 U Epithel Cells (Auto) < 1.0 /HPF (0-13.0) 12/04/16 11:25 Urine Mucus Few /HPF 12/04/16 11:25 Urine Osmolality 419 Mosm/kg 12/04/16 11:25 Urine Total Volume 200 12/24/16 00:00 Urine Creatinine 239.9 mg/dL (0.1-20.0) H 12/24/16 00:00 Height (in) 64.0 inches 12/24/16 00:00 Weight (lb) 114.0 lbs 12/24/16 00:00 Creatinine Clearance 12 12/24/16 00:00 Protein/Creatinin Ratio 1.12 12/04/16 11:25 Urine Sodium 26 mEq/L 12/04/16 11:25 Urine Total Protein 33 mg/dL (5-11.8) H 12/04/16 11:25 Urine Opiates Screen Presumptive negative 12/04/16 11:25 Urine Methadone Screen Presumptive negative 12/04/16 11:25 Ur Barbiturates Screen Presumptive negative 12/04/16 11:25 Ur Phencyclidine Scrn Presumptive negative 12/04/16 11:25 Ur Amphetamines Screen Presumptive negative 12/04/16 11:25 U Benzodiazepines Scrn Presumptive negative 12/04/16 11:25 Urine Cocaine Screen Presumptive negative 12/04/16 11:25 U Marijuana (THC) Screen Presumptive positive 12/04/16 11:25 Drugs of Abuse Note Disclamer 12/04/16 11:25 Heparin-induced Plt Ab Weak positive (Negative) H 12/09/16 13:27 UF Heparin High Dose 0 % Release 12/09/16 13:27 ADRIENNE UFH Low Dose 0.1 0 % Release 12/09/16 13:27 ADRIENNE UFH Low Dose 0.5 0 % Release 12/09/16 13:27 Hep Bs Antigen Non-reactive (Negative) 12/09/16 13:27 Hep Bs Antibody, Quant <5 mIU/mL (>=10) L 12/09/16 13:27 Hep B Core Total Ab Nonreactive (Nonreactive) 12/09/16 13:27 Hepatitis C Antibody Non-reactive (NonReactive) 12/09/16 13:27 HIV 1&2 Antibody Rapid Non react (Non React) 12/09/16 13:27 HIV P24 Antigen Non react (Non React) 12/09/16 13:27 Schistocytes Smear None seen 12/09/16 11:29 Blood Type O POSITIVE 01/03/17 12:30 Antibody Screen TNR 07/30/17 12:30 ISAIAH Antibody Screen Negative 01/03/17 12:30 Crossmatch See Detail 01/03/17 12:30
[2017-01-04] MEDS: PERCOCET 5/325 PO PRN ×2 (15:59→23:51)
[2017-01-04] MEDS: BENADRYL PO PRN ×2 (15:59→23:46)
[2017-01-04] MEDS: DELTASONE PO SCH (16:04)
[2017-01-05] MEDS: NOVOLOG SUB-Q SCH ×5 (01:08→22:09)
[2017-01-05] MEDS: NACL 0.9% 1000 ML 1,000 ML IV SCH ×2 (01:10→23:40)
[2017-01-05 05:33] LABS: Hematocrit 27.9 % (30.3-42.9); Hemoglobin 9.1 gm/dl (10.1-14.3); Mean Corpuscular HGB Conc 33 % (30-34); Mean Corpuscular Hemoglobin 29 pg (28-32); Mean Corpuscular Volume 90 fl (79-97); Platelet Count 434 K/mm3 (140-440); Red Cell Distribution Width 16.4 % (13.2-15.2); White Blood Count 8.1 K/mm3 (4.5-11.0)
[2017-01-05 06:01] LABS: Anion Gap 25 mmol/L; BUN/Creatinine Ratio 14.11; Blood Urea Nitrogen 24 mg/dL (7-17); Calcium 7.5 mg/dL (8.4-10.2); Carbon Dioxide 18 mmol/L (22-30); Chloride 93.3 mmol/L (98-107); Potassium 5.8 mmol/L (3.6-5.0); Sodium 130 mmol/L (137-145)
[2017-01-05 06:13] LABS: Glucose TNR mg/dL (65-100)
[2017-01-05] MEDS: ZOFRAN IV PRN (06:40)
[2017-01-05] MEDS ORDERED: NACL 0.9% 1000 ML 1,000 ML IV ONE (07:33)
[2017-01-05] MEDS ORDERED: NACL 0.9% 1000 ML 2,000 ML IV ONE (07:34)
[2017-01-05] MEDS ORDERED: NOVOLOG SUB-Q ONE (07:34)
[2017-01-05] MEDS: LOPRESSOR PO SCH ×2 (09:30→22:08)
[2017-01-05] MEDS: DELTASONE PO SCH (09:31)
[2017-01-05] MEDS: PEPCID PO SCH (09:31)
[2017-01-05] MEDS: BENADRYL PO PRN ×2 (11:59→18:24)
[2017-01-05] MEDS: PERCOCET 5/325 PO PRN ×2 (12:00→18:24)
[2017-01-05 13:14] LABS: BUN/Creatinine Ratio 16.66; Calcium 7.4 mg/dL (8.4-10.2); Chloride 98.2 mmol/L (98-107); Potassium 4.6 mmol/L (3.6-5.0)
[2017-01-05] MEDS: LEVAQUIN PO SCH (14:16)
--- NOTE | 2017-01-05 15:28 | Progress Note ---
Assessment and Plan Assessment and plan: The patient is a 46-year-old woman with history of insulin-dependent diabetes mellitus, hypertension, recent SAH and dyslipidemia who presented with DKA, AMS and STEMI with V. fib arrest requiring IV amiodarone suppression. she was intubated and subsequently extubated. she was treated with IV insulin drip for documented DKA without ketones documentation but she was acidotic on admission and pressors but subsequently weaned off and transferred to the medical floor. Patient has had multiple admissions in the hospital multiple times and near experience in multiple of the Spesis secondary to Possible aspiration penumonitis. Inital BCX with coagulase negative staff, 1/2 bottles ?contaminate Repeat cultures, no growth. emperic abx was discontinued, Patient proceeded to have bronchoscopy due to persistence of findings on chest x-ray and chest CT. Cultures did grow multiple organisms in the bronchial tissue with gram-negative and gram-positive. Also noted to be resistant organisms in addition. 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 We'll start patient on prednisone 60 mg daily. PFT as outpatient. Discussed with patient extensively about glycemic control patient verbalized understanding Will reconsult ID for recommendation based on Micro data StarT also on Augumentin. Uncontrolled DM -Labile-recent increased due to addition of steroids. Blood glucose adjusted. We'll monitor closely for the next 24 hours. -CONTINUE CARB CONSISTENT DIET -Give A liter bolous. -70/30 changed 18 units bid. Continue sliding scale Monitor but decrease at moderate dose scale due to recurrent hypoglycemia. Hold or decrease dose by 50 % when patient not eating due to Gastroenteritis. Gastroenteritis. Nausea and vomiting. Acute hypoxic respiratory failure. Resolved. Now extubated, stable right upper lobe opacity. AWAITING PATHOLOGY FROM [facility]. cytology showing no malignant cells, Severe Metabolic acidosis Resolved. Neprhology following Cardiac arrest with PEA arrest-->V. fib/?torsades was shocked twice - Likely from hyperkalemia, currently patient is stable. Was treated with amiodarone -Echo EF 40-45% - No recurrence Acute kidney injury secondary to ATN - Nephrology is following. HD Held ASHELY improving. Cr 2.3 for past 3 days NOW 1.4. NO FURTHER NEED FOR DIALYSIS Hyperkalemia- Give Kayxalate. Malnutrition- Moderate: Nutrition consult DKA: - resolved - On sliding insulin Acute metabolic encephalopathy, resolved Nstemi Type 2- Likely from Shock. Moderate protein calorie malnutrition Day Care Attendant input noted Thrombocytopenia - Resolved Acute on chronic anemia of chronic disease, s/p total 4 units PRBC this admission - STABLE TODAY, will monitor Depression - Psych consulted and recommend outpatient mental health follow up. Disposition -PENDING PATHOLOGY -DVT prophylaxis: SCDs only due to recent SAH History Interval history: Patient seen and examined, no further vomiting and nausea noted today but was very emotional due to elevated blood sugar. Hospitalist Physical - Physical exam Narrative exam: VITAL SIGNS: Reviewed. GENERAL: The patient appeared lethargic appearing , cachetic. Vital signs as documented. HEAD: No signs of head trauma. temporal wasting noted EYES: Pupils are equal. Extraocular motions intact. EARS: Hearing grossly intact. MOUTH: Oropharynx is normal. NECK: No adenopathy, no JVD. CHEST: Chest with diminshed breath sounds bilaterally. No wheezes, rales, or rhonchi CARDIAC: Regular rate and rhythm. S1 and S2, without murmurs, gallops, or rubs. VASCULAR: Trace Edema. Peripheral pulses normal and equal in all extremities. ABDOMEN: Soft, without detectable tenderness. No sign of distention. No rebound or guarding, and no masses palpated. Bowel Sounds normal. MUSCULOSKELETAL: Good range of motion of all major joints. Extremities without clubbing, cyanosis. Trace edema. NEUROLOGIC EXAM: Alert and oriented x 3. No focal sensory or strength deficits. Speech normal. Follows commands. PSYCHIATRIC: Mood normal. SKIN: No rash or lesions. - Constitutional Vitals: Temp Pulse Resp BP Pulse Ox 98 F 100 H 16 124/76 98 01/05/17 08:00 01/05/17 08:00 01/05/17 08:00 01/05/17 09:30 01/05/17 08:00 General appearance: Present: no acute distress (resting comfortably) Results - Labs CBC & Chem 7: 01/05/17 05:00 01/05/17 Unknown Labs: Laboratory Last Values WBC 8.1 K/mm3 (4.5-11.0) 01/05/17 05:00 RBC 3.10 M/mm3 (3.65-5.03) L 01/05/17 05:00 Hgb 9.1 gm/dl (10.1-14.3) L 01/05/17 05:00 Hct 27.9 % (30.3-42.9) L 01/05/17 05:00 MCV 90 fl (79-97) 01/05/17 05:00 MCH 29 pg (28-32) 01/05/17 05:00 MCHC 33 % (30-34) 01/05/17 05:00 RDW 16.4 % (13.2-15.2) H 01/05/17 05:00 Plt Count 434 K/mm3 (140-440) 01/05/17 05:00 Lymph % (Auto) 8.1 % (13.4-35.0) L 12/22/16 06:45 Wythe % (Auto) 5.3 % (0.0-7.3) 12/22/16 06:45 Eos % (Auto) 1.4 % (0.0-4.3) 12/22/16 06:45 Baso % (Auto) 0.9 % (0.0-1.8) 12/22/16 06:45 Lymph # 1.4 K/mm3 (1.2-5.4) 12/22/16 06:45 Wythe # 0.9 K/mm3 (0.0-0.8) H 12/22/16 06:45 Eos # 0.2 K/mm3 (0.0-0.4) 12/22/16 06:45 Baso # 0.2 K/mm3 (0.0-0.1) H 12/22/16 06:45 Add Manual Diff Complete 12/13/16 07:49 Total Counted 100 12/13/16 07:49 Seg Neutrophils % 84.3 % (40.0-70.0) H 12/22/16 06:45 Seg Neuts % (Manual) 89.0 % (40.0-70.0) H 12/13/16 07:49 Band Neutrophils % 1.0 % 12/13/16 07:49 Lymphocytes % (Manual) 7.0 % (13.4-35.0) L 12/13/16 07:49 Reactive Lymphs % (Man) 0 % 12/13/16 07:49 Monocytes % (Manual) 3.0 % (0.0-7.3) 12/13/16 07:49 Eosinophils % (Manual) 0 % (0.0-4.3) 12/13/16 07:49 Basophils % (Manual) 0 % (0.0-1.8) 12/13/16 07:49 Metamyelocytes % 0 % 12/13/16 07:49 Myelocytes % 0 % 12/13/16 07:49 Promyelocytes % 0 % 12/13/16 07:49 Blast Cells % 0 % 12/13/16 07:49 Nucleated RBC % Not Reportable 12/13/16 07:49 Seg Neutrophils # 14.6 K/mm3 (1.8-7.7) H 12/22/16 06:45 Seg Neutrophils # Man 21.4 K/mm3 (1.8-7.7) H 12/13/16 07:49 Band Neutrophils # 0.2 K/mm3 12/13/16 07:49 Lymphocytes # (Manual) 1.7 K/mm3 (1.2-5.4) 12/13/16 07:49 Abs React Lymphs (Man) 0.0 K/mm3 12/13/16 07:49 Monocytes # (Manual) 0.7 K/mm3 (0.0-0.8) 12/13/16 07:49 Eosinophils # (Manual) 0.0 K/mm3 (0.0-0.4) 12/13/16 07:49 Basophils # (Manual) 0.0 K/mm3 (0.0-0.1) 12/13/16 07:49 Metamyelocytes # 0.0 K/mm3 12/13/16 07:49 Myelocytes # 0.0 K/mm3 12/13/16 07:49 Promyelocytes # 0.0 K/mm3 12/13/16 07:49 Blast Cells # 0.0 K/mm3 12/13/16 07:49 WBC Morphology Not Reportable 12/13/16 07:49 Hypersegmented Neuts Not Reportable 12/13/16 07:49 Hyposegmented Neuts Not Reportable 12/13/16 07:49 Hypogranular Neuts Not Reportable 12/13/16 07:49 Smudge Cells Not Reportable 12/13/16 07:49 Toxic Granulation Not Reportable 12/13/16 07:49 Toxic Vacuolation Not Reportable 12/13/16 07:49 Dohle Bodies Not Reportable 12/13/16 07:49 Pelger-Huet Anomaly Not Reportable 12/13/16 07:49 Mary Rods Not Reportable 12/13/16 07:49 Platelet Estimate Cons 12/13/16 07:49 Clumped Platelets Not Reportable 12/13/16 07:49 Plt Clumps, EDTA Not Reportable 12/13/16 07:49 Large Platelets Rare 12/13/16 07:49 Giant Platelets Not Reportable 12/13/16 07:49 Platelet Satelliting Not Reportable 12/13/16 07:49 Plt Morphology Comment Not Reportable 12/13/16 07:49 RBC Morphology Not Reportable 12/13/16 07:49 Dimorphic RBCs Not Reportable 12/13/16 07:49 Polychromasia Not Reportable 12/13/16 07:49 Hypochromasia 1+ 12/13/16 07:49 Poikilocytosis Not Reportable 12/13/16 07:49 Anisocytosis 1+ 12/13/16 07:49 Microcytosis Not Reportable 12/13/16 07:49 Macrocytosis Not Reportable 12/13/16 07:49 Spherocytes Not Reportable 12/13/16 07:49 Pappenheimer Bodies Not Reportable 12/13/16 07:49 Sickle Cells Not Reportable 12/13/16 07:49 Target Cells Few 12/13/16 07:49 Tear Drop Cells Not Reportable 12/13/16 07:49 Ovalocytes Not Reportable 12/13/16 07:49 Helmet Cells Not Reportable 12/13/16 07:49 Landers-Grace Bodies Not Reportable 12/13/16 07:49 Savona Rings Not Reportable 12/13/16 07:49 [place] Cells Not Reportable 12/13/16 07:49 Bite Cells Not Reportable 12/13/16 07:49 Crenated Cell Not Reportable 12/13/16 07:49 Elliptocytes Not Reportable 12/13/16 07:49 Acanthocytes (Spur) Not Reportable 12/13/16 07:49 Rouleaux Not Reportable 12/13/16 07:49 Hemoglobin C Crystals Not Reportable 12/13/16 07:49 Schistocytes Not Reportable 12/13/16 07:49 Malaria parasites Not Reportable 12/13/16 07:49 Percent Retic 0.23 % (0.78-2.58) L 12/09/16 11:29 Michael Bodies Not Reportable 12/13/16 07:49 Haptoglobin 271 mg/dL (43-212) H 12/08/16 21:30 Hem Pathologist Commnt No 12/13/16 07:49 PT 15.3 Sec. (12.2-14.9) H 12/08/16 19:00 INR 1.22 (0.87-1.13) H 12/08/16 19:00 APTT 36.2 Sec. (24.2-36.6) 12/08/16 19:00 Fibrinogen 563 mg/dl (211-480) H 12/08/16 19:00 D-Dimer 5507.36 ng/mlDDU (0-234) H 12/08/16 19:00 Heparin Anti-Xa, Unfract Negative (Negative) 12/09/16 13:27 POC ABG pH 7.326 (7.35-7.45) L 12/09/16 12:02 POC ABG pCO2 37.7 (35-45) 12/09/16 12:02 POC ABG pO2 115 (80-105) H 12/09/16 12:02 POC ABG HCO3 19.7 12/09/16 12:02 POC ABG Total CO2 21 12/09/16 12:02 POC ABG O2 Sat 98 12/09/16 12:02 POC ABG Base Excess -6 12/09/16 12:02 FiO2 30 % 12/09/16 12:02 Sodium 134 mmol/L (137-145) L 01/05/17 Unknown Potassium 4.6 mmol/L (3.6-5.0) D 01/05/17 Unknown Chloride 98.2 mmol/L (98-107) 01/05/17 Unknown Carbon Dioxide 18 mmol/L (22-30) L 01/05/17 Unknown Anion Gap 22 mmol/L 01/05/17 Unknown BUN 30 mg/dL (7-17) H 01/05/17 Unknown Creatinine 1.8 mg/dL (0.7-1.2) H 01/05/17 Unknown Estimated GFR 36 ml/min 01/05/17 Unknown BUN/Creatinine Ratio 16.66 % 01/05/17 Unknown Glucose 329 mg/dL (65-100) H 01/05/17 Unknown POC Glucose 293 (70-105) H 01/05/17 11:19 Lactic Acid 6.90 mmol/L (0.7-2.0) H* 12/07/16 07:30 Calcium 7.4 mg/dL (8.4-10.2) L 01/05/17 Unknown Phosphorus 2.60 mg/dL (2.5-4.5) 12/26/16 Unknown Magnesium 1.40 mg/dL (1.7-2.3) L 01/01/17 01:46 Iron 66 ug/dL (37-170) 12/21/16 05:00 TIBC 193.20 mcg/dL (250-450) L 12/21/16 05:00 Transferrin 138 mg/dl (192-382) L 12/21/16 05:00 Ferritin 321.4 ng/mL (13.0-400.0) 12/21/16 05:00 Total Bilirubin 0.20 mg/dL (0.1-1.2) 01/04/17 06:57 Direct Bilirubin < 0.2 mg/dL (0-0.2) 01/04/17 06:57 Indirect Bilirubin 0.5 mg/dL 12/07/16 21:35 AST 15 units/L (5-40) 01/04/17 06:57 ALT 6 units/L (7-56) L 01/04/17 06:57 Alkaline Phosphatase 161 units/L (35-129) H 01/04/17 06:57 Lactate Dehydrogenase 382 units/L (91-180) H 12/08/16 19:00 Total Creatine Kinase 123 units/L (30-135) 12/04/16 09:55 CK-MB (CK-2) 4.6 ng/mL (0.0-4.0) H 12/04/16 09:55 CK-MB (CK-2) Rel Index 3.7 (0-4) 12/04/16 09:55 Troponin T 0.140 ng/mL (0.00-0.029) H* D 12/04/16 09:55 C-Reactive Protein 39.40 mg/dL (0.00-1.30) H 12/07/16 06:00 Total Protein 5.6 g/dL (6.3-8.2) L 01/04/17 06:57 Albumin 2.7 g/dL (3.9-5) L 01/04/17 06:57 Albumin/Globulin Ratio 0.9 % 01/04/17 06:57 Triglycerides 570 mg/dL (2-149) H 12/04/16 07:55 Cholesterol 221 mg/dL (50-199) H 12/04/16 07:55 LDL Cholesterol Direct TNR 12/04/16 07:55 HDL Cholesterol 37 mg/dL (40-59) L 12/04/16 07:55 Cholesterol/HDL Ratio 5.97 % 12/04/16 07:55 Serotonin Release Assay See scanned report 12/09/16 13:27 Vitamin B12 > 2000 pg/mL (211-911) H 12/09/16 13:27 Folate 8.10 ng/mL (7.3-26.0) 12/09/16 13:27 TSH 1.600 mlU/mL (0.270-4.200) 12/03/16 23:20 Urine Color Yellow (Yellow) 12/04/16 11:25 Urine Turbidity Slightly-cloudy (Clear) 12/04/16 11:25 Urine pH 5.0 (5.0-7.0) 12/04/16 11:25 Ur Specific Weir 1.018 (1.003-1.030) 12/04/16 11:25 Urine Protein 30 mg/dl mg/dL (Negative) 12/04/16 11:25 Urine Glucose (UA) >=500 mg/dL (Negative) 12/04/16 11:25 Urine Ketones Tr mg/dL (Negative) 12/04/16 11:25 Urine Blood Sm (Negative) 12/04/16 11:25 Urine Nitrite Neg (Negative) 12/04/16 11:25 Urine Bilirubin Neg (Negative) 12/04/16 11:25 Urine Urobilinogen < 2.0 mg/dL (<2.0) 12/04/16 11:25 Ur Leukocyte Esterase Neg (Negative) 12/04/16 11:25 Urine WBC (Auto) 4.0 /HPF (0.0-6.0) 12/04/16 11:25 Urine RBC (Auto) 2.0 /HPF (0.0-6.0) 12/04/16 11:25 U Epithel Cells (Auto) < 1.0 /HPF (0-13.0) 12/04/16 11:25 Urine Mucus Few /HPF 12/04/16 11:25 Urine Osmolality 419 Mosm/kg 12/04/16 11:25 Urine Total Volume 200 12/24/16 00:00 Urine Creatinine 239.9 mg/dL (0.1-20.0) H 12/24/16 00:00 Height (in) 64.0 inches 12/24/16 00:00 Weight (lb) 114.0 lbs 12/24/16 00:00 Creatinine Clearance 12 12/24/16 00:00 Protein/Creatinin Ratio 1.12 12/04/16 11:25 Urine Sodium 26 mEq/L 12/04/16 11:25 Urine Total Protein 33 mg/dL (5-11.8) H 12/04/16 11:25 Urine Opiates Screen Presumptive negative 12/04/16 11:25 Urine Methadone Screen Presumptive negative 12/04/16 11:25 Ur Barbiturates Screen Presumptive negative 12/04/16 11:25 Ur Phencyclidine Scrn Presumptive negative 12/04/16 11:25 Ur Amphetamines Screen Presumptive negative 12/04/16 11:25 U Benzodiazepines Scrn Presumptive negative 12/04/16 11:25 Urine Cocaine Screen Presumptive negative 12/04/16 11:25 U Marijuana (THC) Screen Presumptive positive 12/04/16 11:25 Drugs of Abuse Note Disclamer 12/04/16 11:25 Heparin-induced Plt Ab Weak positive (Negative) H 12/09/16 13:27 UF Heparin High Dose 0 % Release 12/09/16 13:27 ADRIENNE UFH Low Dose 0.1 0 % Release 12/09/16 13:27 ADRIENNE UFH Low Dose 0.5 0 % Release 12/09/16 13:27 Hep Bs Antigen Non-reactive (Negative) 12/09/16 13:27 Hep Bs Antibody, Quant <5 mIU/mL (>=10) L 12/09/16 13:27 Hep B Core Total Ab Nonreactive (Nonreactive) 12/09/16 13:27 Hepatitis C Antibody Non-reactive (NonReactive) 12/09/16 13:27 HIV 1&2 Antibody Rapid Non react (Non React) 12/09/16 13:27 HIV P24 Antigen Non react (Non React) 12/09/16 13:27 Schistocytes Smear None seen 12/09/16 11:29 Blood Type O POSITIVE 01/03/17 12:30 Antibody Screen TNR 01/03/17 12:30 ISAIAH Antibody Screen Negative 01/03/17 12:30 Crossmatch See Detail 01/03/17 12:30
--- NOTE | 2017-01-05 15:54 | Progress Note ---
Assessment and Plan - Patient Problems (1) Acute respiratory failure with hypoxemia Current Visit: No Status: Acute Plan to address problem: I believe that the polymicrobial growth seen on transbronchial culture represents airway colonization over infection. However, because of the plan to start high-dose steroids, oral Doxycycline 100mg PO bid is a reasonable option. There is no oral agent that will cover all of the organisms present. Recommend clinical monitoring for worsening symptoms and culture of sputum in that circumstance to guide an antibiotic adjustment. Subjective Date of service: 01/05/17 Principal diagnosis: Sepsis; Pneumonia; ASHELY on dialysis; Diabetes Interval history: I was asked to see Ms. Ingram again to review culture data from a recent transbronchial lung biopsy. She remains afebrile and hemodynamically stable. She says she has a dry cough and voice changes since extubation, but no new respiratory complaints. Objective - Constitutional Vitals: Vital Signs Temp Pulse Resp BP Pulse Ox 98 F 100 H 16 124/76 98 01/05/17 08:00 01/05/17 08:00 01/05/17 08:00 01/05/17 09:30 01/05/17 08:00 Temperature -Last 24 Hours Temperature 98 F Temperature 98.5 F Temperature 98.4 F Temperature 98.9 F General appearance: Present: no acute distress, other (chronically ill-appearing ) - EENT Eyes: no conjunctival injection - Neck Neck: supple - Respiratory Respiratory: bilateral: CTA, negative: rales, rhonchi - Cardiovascular Rhythm: regular Heart Sounds: Present: S1 & S2 Extremities: No edema - Gastrointestinal General gastrointestinal: Present: soft, non-distended - Integumentary Integumentary: no rash - Neurologic Neurologic: moves all extremities - Psychiatric Psychiatric: appropriate mood/affect - Labs CBC & Chem 7: 01/05/17 05:00 01/05/17 Unknown Labs: Abnormal lab results 01/04/17 01/04/17 01/04/17 Range/Units 12:10 17:12 21:47 RBC (3.65-5.03) M/mm3 Hgb (10.1-14.3) gm/dl Hct (30.3-42.9) % RDW (13.2-15.2) % Sodium (137-145) mmol/L Potassium (3.6-5.0) mmol/L Chloride (98-107) mmol/L Carbon Dioxide (22-30) mmol/L BUN (7-17) mg/dL Creatinine (0.7-1.2) mg/dL Glucose (65-100) mg/dL POC Glucose 244 H 388 H 359 H (70-105) Calcium (8.4-10.2) mg/dL 01/05/17 01/05/17 01/05/17 Range/Units 01:01 05:00 05:00 RBC 3.10 L (3.65-5.03) M/mm3 Hgb 9.1 L (10.1-14.3) gm/dl Hct 27.9 L (30.3-42.9) % RDW 16.4 H (13.2-15.2) % Sodium 130 L D (137-145) mmol/L Potassium 5.8 H D (3.6-5.0) mmol/L Chloride 93.3 L (98-107) mmol/L Carbon Dioxide 18 L (22-30) mmol/L BUN 24 H (7-17) mg/dL Creatinine 1.7 H (0.7-1.2) mg/dL Glucose (65-100) mg/dL POC Glucose 476 H (70-105) Calcium 7.5 L (8.4-10.2) mg/dL 01/05/17 01/05/17 01/05/17 Range/Units 05:22 06:40 07:36 RBC (3.65-5.03) M/mm3 Hgb (10.1-14.3) gm/dl Hct (30.3-42.9) % RDW (13.2-15.2) % Sodium (137-145) mmol/L Potassium (3.6-5.0) mmol/L Chloride (98-107) mmol/L Carbon Dioxide (22-30) mmol/L BUN (7-17) mg/dL Creatinine (0.7-1.2) mg/dL Glucose 831 H* (65-100) mg/dL POC Glucose > 500 H > 500 H (70-105) Calcium (8.4-10.2) mg/dL 01/05/17 01/05/17 01/05/17 Range/Units 09:43 11:19 Unknown RBC (3.65-5.03) M/mm3 Hgb (10.1-14.3) gm/dl Hct (30.3-42.9) % RDW (13.2-15.2) % Sodium 134 L (137-145) mmol/L Potassium (3.6-5.0) mmol/L Chloride (98-107) mmol/L Carbon Dioxide 18 L (22-30) mmol/L BUN 30 H (7-17) mg/dL Creatinine 1.8 H (0.7-1.2) mg/dL Glucose 329 H (65-100) mg/dL POC Glucose 403 H 293 H (70-105) Calcium 7.4 L (8.4-10.2) mg/dL Microbiology 12/31/16 17:00 Lung - Right Upper Lobe Surgical Biopsy Culture - Final Escherichia Coli Staphylococcus Epidermidis Dasha Albicans Streptococcus Not Group D Pseudomonas Aeruginosa 12/31/16 17:00 Lung - Right Upper Lobe AFB Smear Concentration - Final 12/31/16 17:00 Bronchial Washings - Right Upper Lobe Respiratory Culture - Final Escherichia Coli 12/11/16 10:24 Central Venous Line Blood Culture - Final NO GROWTH AFTER 5 DAYS 12/05/16 05:19 Peripheral/Venous Blood Culture - Final NO GROWTH AFTER 5 DAYS 12/05/16 04:44 Peripheral/Venous Blood Culture - Final NO GROWTH AFTER 5 DAYS 12/03/16 23:20 Peripheral/Venous Blood Culture - Final Coag Negative Staphylococcus 12/06/16 21:55 Tracheal Aspirate Sputum Culture - Final Pseudomonas Aeruginosa 12/03/16 23:20 Peripheral/Venous Blood Culture - Final NO GROWTH AFTER 5 DAYS 12/04/16 01:05 Tracheal Aspirate Sputum Culture - Final
[2017-01-06] MEDS: BENADRYL PO PRN ×4 (00:04→18:43)
[2017-01-06] MEDS: PERCOCET 5/325 PO PRN ×4 (00:04→18:43)
[2017-01-06] MEDS: NOVOLOG SUB-Q SCH ×4 (06:30→23:55)
[2017-01-06] MEDS: DELTASONE PO SCH (09:16)
[2017-01-06] MEDS: PEPCID PO SCH (09:17)
[2017-01-06] MEDS: LOPRESSOR PO SCH ×2 (09:17→22:01)
[2017-01-06] MEDS: VIBRAMYCIN PO SCH ×2 (10:58→21:53)
--- NOTE | 2017-01-06 12:58 | Progress Note ---
Assessment and Plan - Patient Problems (1) Severe sepsis Current Visit: Yes Status: Deleted Plan to address problem: - resolved (2) Cardiac arrest Current Visit: Yes Status: Acute Plan to address problem: - achieved ROSC and no recurrence (3) Acute renal failure Current Visit: No Status: Acute Qualifiers: Acute renal failure type: A Plan to address problem: - improved - tentatively will not need rat exterminator dialysis - per nephrology otherwise (4) Acute respiratory failure with hypoxemia Current Visit: No Status: Acute Plan to address problem: - improved - continue to wean oxygen for sats > 94% - bronchoscopy cultures reviewed - follow cytology and pathology of biopsies, washes and brushings (5) DKA (diabetic ketoacidoses) Current Visit: Yes Status: Acute Qualifiers: Diabetes mellitus type: type 1 Diabetes mellitus complication detail: without coma Diabetes mellitus assisted insulin use: D Qualified Code(s): E10.10 - Type 1 diabetes mellitus with ketoacidosis without coma Plan to address problem: - resolved - continue SSI - on 70/30 insulin 10units SB bid now - adjusting doses as now on high dose steroids (6) Anemia Current Visit: Yes Status: Acute Qualifiers: Anemia type: A Iron deficiency anemia type: I Vitamin B12 deficiency anemia type: V Folate deficiency anemia type: F Bone marrow failure anemia type: B Hemolytic anemia type: H Other causes of anemia: O Chronic kidney disease stage: C Plan to address problem: - multifactorial - continue to treat azotemia - full w/up per attending (7) Discharge planning issues Current Visit: No Status: Acute Plan to address problem: - need to control blood sugars ...re-evaluate in am and prn Subjective Date of service: 01/06/17 Principal diagnosis: Sepsis; Pneumonia; ASHELY on dialysis; Diabetes Interval history: Seen and examined at bedside; 24 hour events reviewed; nursing and respiratory care staff consulted; no adverse overnight events reported to me; resting in bed ; kept overnight due to high sugars; no emesis or overt aspiration; no chest pains or hemoptysis Objective Vital Signs - 12hr 01/06/17 01/06/17 07:05 09:17 Temperature 97.8 F Pulse Rate 104 H 104 H Respiratory 16 Rate Blood Pressure 163/100 163/100 O2 Sat by Pulse 100 Oximetry Constitutional: no acute distress, alert Eyes: non-icteric ENT: oropharynx moist Neck: supple, no lymphadenopathy Effort: normal Ascultation: Right: rhonchi, Bilateral: diminished breath sounds Cardiovascular: regular rate and rhythm Gastrointestinal: normoactive bowel sounds, soft, non-tender, non-distended Integumentary: normal Extremities: no cyanosis, no edema, pulses normal, no ischemia or petechiae Neurologic: normal mental status, non-focal exam, pupils equal and round, motor strength normal and Psychiatric: mood appropriate, affect normal CBC and BMP: 01/08/17 06:40 01/08/17 06:40 ABG, PT/INR, D-dimer: ABG POC ABG pH 7.326 (7.35-7.45) L 12/09/16 12:02 POC ABG pCO2 37.7 (35-45) 12/09/16 12:02 POC ABG pO2 115 (80-105) H 12/09/16 12:02 POC ABG HCO3 19.7 12/09/16 12:02 POC ABG Total CO2 21 12/09/16 12:02 POC ABG O2 Sat 98 12/09/16 12:02 PT/INR, D-dimer PT 15.3 Sec. (12.2-14.9) H 12/08/16 19:00 INR 1.22 (0.87-1.13) H 12/08/16 19:00 D-Dimer 5507.36 ng/mlDDU (0-234) H 12/08/16 19:00 Abnormal lab findings: Abnormal Labs 12/04/16 12/04/16 12/04/16 01:19 01:36 02:21 WBC RBC Hgb Hct MCV MCHC RDW Plt Count Lymph % (Auto) [place] % (Auto) [place] # Baso # Seg Neutrophils % Seg Neuts % (Manual) Lymphocytes % (Manual) Monocytes % (Manual) Nucleated RBC % Seg Neutrophils # Seg Neutrophils # Man Lymphocytes # (Manual) Monocytes # (Manual) Percent Retic Haptoglobin PT INR Fibrinogen D-Dimer POC ABG pH 6.759 L POC ABG pCO2 POC ABG pO2 437 H Sodium Potassium Chloride Carbon Dioxide BUN Creatinine Glucose POC Glucose > 500 H Lactic Acid Calcium Phosphorus 15.70 H Magnesium 4.30 H Iron TIBC Transferrin Total Bilirubin Direct Bilirubin AST ALT Alkaline Phosphatase Lactate Dehydrogenase CK-MB (CK-2) Troponin T C-Reactive Protein Total Protein Albumin Triglycerides Cholesterol HDL Cholesterol Vitamin B12 Urine Creatinine Urine Total Protein Heparin-induced Plt Ab Hep Bs Antibody, Quant Crossmatch 12/04/16 12/04/16 12/04/16 03:55 04:00 05:11 WBC RBC Hgb Hct MCV MCHC RDW Plt Count Lymph % (Auto) [place] % (Auto) [place] # Baso # Seg Neutrophils % Seg Neuts % (Manual) Lymphocytes % (Manual) Monocytes % (Manual) Nucleated RBC % Seg Neutrophils # Seg Neutrophils # Man Lymphocytes # (Manual) Monocytes # (Manual) Percent Retic Haptoglobin PT INR Fibrinogen D-Dimer POC ABG pH POC ABG pCO2 POC ABG pO2 Sodium Potassium Chloride 91.4 L Carbon Dioxide 8 L* BUN 55 H Creatinine 2.8 H Glucose 1610 H* POC Glucose > 500 H > 500 H Lactic Acid Calcium Phosphorus Magnesium Iron TIBC Transferrin Total Bilirubin Direct Bilirubin AST ALT Alkaline Phosphatase Lactate Dehydrogenase CK-MB (CK-2) Troponin T C-Reactive Protein Total Protein Albumin Triglycerides Cholesterol HDL Cholesterol Vitamin B12 Urine Creatinine Urine Total Protein Heparin-induced Plt Ab Hep Bs Antibody, Quant Crossmatch 12/04/16 12/04/16 12/04/16 05:40 05:54 06:58 WBC RBC Hgb Hct MCV MCHC RDW Plt Count Lymph % (Auto) [place] % (Auto) [place] # Baso # Seg Neutrophils % Seg Neuts % (Manual) Lymphocytes % (Manual) Monocytes % (Manual) Nucleated RBC % Seg Neutrophils # Seg Neutrophils # Man Lymphocytes # (Manual) Monocytes # (Manual) Percent Retic Haptoglobin PT INR Fibrinogen D-Dimer POC ABG pH 7.154 L POC ABG pCO2 27.5 L POC ABG pO2 111 H Sodium Potassium Chloride Carbon Dioxide BUN Creatinine Glucose POC Glucose > 500 H > 500 H Lactic Acid Calcium Phosphorus Magnesium Iron TIBC Transferrin Total Bilirubin Direct Bilirubin AST ALT Alkaline Phosphatase Lactate Dehydrogenase CK-MB (CK-2) Troponin T C-Reactive Protein Total Protein Albumin Triglycerides Cholesterol HDL Cholesterol Vitamin B12 Urine Creatinine Urine Total Protein Heparin-induced Plt Ab Hep Bs Antibody, Quant Crossmatch 12/04/16 12/04/16 12/04/16 07:49 07:55 07:55 WBC RBC Hgb Hct MCV MCHC RDW Plt Count Lymph % (Auto) [place] % (Auto) [place] # Baso # Seg Neutrophils % Seg Neuts % (Manual) Lymphocytes % (Manual) Monocytes % (Manual) Nucleated RBC % Seg Neutrophils # Seg Neutrophils # Man Lymphocytes # (Manual) Monocytes # (Manual) Percent Retic Haptoglobin PT INR Fibrinogen D-Dimer POC ABG pH POC ABG pCO2 POC ABG pO2 Sodium Potassium 3.3 L Chloride Carbon Dioxide 9 L* BUN 53 H Creatinine 2.9 H Glucose 1229 H* POC Glucose > 500 H Lactic Acid Calcium Phosphorus Magnesium Iron TIBC Transferrin Total Bilirubin Direct Bilirubin AST ALT Alkaline Phosphatase Lactate Dehydrogenase CK-MB (CK-2) Troponin T 0.111 H* D C-Reactive Protein Total Protein Albumin Triglycerides 570 H Cholesterol 221 H HDL Cholesterol 37 L Vitamin B12 Urine Creatinine Urine Total Protein Heparin-induced Plt Ab Hep Bs Antibody, Quant Crossmatch 12/04/16 12/04/16 12/04/16 07:55 09:55 09:55 WBC RBC 2.90 L Hgb 8.5 L Hct 30.2 L D MCV 105 H D MCHC 28 L RDW 19.2 H Plt Count Lymph % (Auto) [place] % (Auto) [place] # Baso # Seg Neutrophils % Seg Neuts % (Manual) Lymphocytes % (Manual) 11.0 L Monocytes % (Manual) Nucleated RBC % Seg Neutrophils # Seg Neutrophils # Man Lymphocytes # (Manual) 0.6 L Monocytes # (Manual) Percent Retic Haptoglobin PT INR Fibrinogen D-Dimer POC ABG pH POC ABG pCO2 POC ABG pO2 Sodium Potassium 3.1 L Chloride Carbon Dioxide 7 L* BUN 51 H Creatinine 3.2 H Glucose 969 H* POC Glucose Lactic Acid Calcium 10.4 H D Phosphorus Magnesium Iron TIBC Transferrin Total Bilirubin Direct Bilirubin AST ALT Alkaline Phosphatase Lactate Dehydrogenase CK-MB (CK-2) 4.6 H Troponin T 0.140 H* D C-Reactive Protein Total Protein Albumin Triglycerides Cholesterol HDL Cholesterol Vitamin B12 Urine Creatinine Urine Total Protein Heparin-induced Plt Ab Hep Bs Antibody, Quant Crossmatch 12/04/16 12/04/16 12/04/16 09:55 10:37 11:25 WBC RBC Hgb Hct MCV MCHC RDW Plt Count Lymph % (Auto) [place] % (Auto) [place] # Baso # Seg Neutrophils % Seg Neuts % (Manual) Lymphocytes % (Manual) Monocytes % (Manual) Nucleated RBC % Seg Neutrophils # Seg Neutrophils # Man Lymphocytes # (Manual) Monocytes # (Manual) Percent Retic Haptoglobin PT INR Fibrinogen D-Dimer POC ABG pH 7.215 L POC ABG pCO2 18.8 L POC ABG pO2 193 H Sodium Potassium Chloride Carbon Dioxide BUN Creatinine Glucose POC Glucose Lactic Acid Calcium Phosphorus Magnesium 3.70 H Iron TIBC Transferrin Total Bilirubin Direct Bilirubin AST ALT Alkaline Phosphatase Lactate Dehydrogenase CK-MB (CK-2) Troponin T C-Reactive Protein Total Protein Albumin Triglycerides Cholesterol HDL Cholesterol Vitamin B12 Urine Creatinine 29.5 H Urine Total Protein 33 H Heparin-induced Plt Ab Hep Bs Antibody, Quant Crossmatch 12/04/16 12/04/16 12/04/16 12:00 12:48 13:00 WBC RBC Hgb Hct MCV MCHC RDW Plt Count Lymph % (Auto) [place] % (Auto) [place] # Baso # Seg Neutrophils % Seg Neuts % (Manual) Lymphocytes % (Manual) Monocytes % (Manual) Nucleated RBC % Seg Neutrophils # Seg Neutrophils # Man Lymphocytes # (Manual) Monocytes # (Manual) Percent Retic Haptoglobin PT INR Fibrinogen D-Dimer POC ABG pH POC ABG pCO2 POC ABG pO2 Sodium 149 H 150 H Potassium 3.2 L 3.2 L Chloride 109.1 H Carbon Dioxide 8 L* 8 L* BUN 52 H 49 H Creatinine 3.4 H 3.1 H Glucose 723 H* 574 H* POC Glucose Lactic Acid 18.80 H* Calcium Phosphorus Magnesium Iron TIBC Transferrin Total Bilirubin Direct Bilirubin AST ALT Alkaline Phosphatase Lactate Dehydrogenase CK-MB (CK-2) Troponin T C-Reactive Protein Total Protein Albumin Triglycerides Cholesterol HDL Cholesterol Vitamin B12 Urine Creatinine Urine Total Protein Heparin-induced Plt Ab Hep Bs Antibody, Quant Crossmatch 12/04/16 12/04/16 12/04/16 13:01 14:41 16:06 WBC RBC Hgb Hct MCV MCHC RDW Plt Count Lymph % (Auto) [place] % (Auto) [place] # Baso # Seg Neutrophils % Seg Neuts % (Manual) Lymphocytes % (Manual) Monocytes % (Manual) Nucleated RBC % Seg Neutrophils # Seg Neutrophils # Man Lymphocytes # (Manual) Monocytes # (Manual) Percent Retic Haptoglobin PT INR Fibrinogen D-Dimer POC ABG pH POC ABG pCO2 POC ABG pO2 Sodium 151 H Potassium 3.2 L Chloride 108.1 H Carbon Dioxide 10 L BUN 49 H Creatinine 3.0 H Glucose 383 H POC Glucose 292 H Lactic Acid Calcium Phosphorus Magnesium Iron TIBC Transferrin Total Bilirubin Direct Bilirubin AST ALT Alkaline Phosphatase Lactate Dehydrogenase CK-MB (CK-2) Troponin T C-Reactive Protein 3.50 H Total Protein Albumin Triglycerides Cholesterol HDL Cholesterol Vitamin B12 Urine Creatinine Urine Total Protein Heparin-induced Plt Ab Hep Bs Antibody, Quant Crossmatch 12/04/16 12/04/16 12/04/16 17:15 17:25 18:07 WBC RBC Hgb Hct MCV MCHC RDW Plt Count Lymph % (Auto) [place] % (Auto) [place] # Baso # Seg Neutrophils % Seg Neuts % (Manual) Lymphocytes % (Manual) Monocytes % (Manual) Nucleated RBC % Seg Neutrophils # Seg Neutrophils # Man Lymphocytes # (Manual) Monocytes # (Manual) Percent Retic Haptoglobin PT INR Fibrinogen D-Dimer POC ABG pH 7.255 L POC ABG pCO2 16.9 L POC ABG pO2 169 H Sodium Potassium Chloride Carbon Dioxide BUN Creatinine Glucose POC Glucose 246 H Lactic Acid 18.50 H* Calcium Phosphorus Magnesium Iron TIBC Transferrin Total Bilirubin Direct Bilirubin AST ALT Alkaline Phosphatase Lactate Dehydrogenase CK-MB (CK-2) Troponin T C-Reactive Protein Total Protein Albumin Triglycerides Cholesterol HDL Cholesterol Vitamin B12 Urine Creatinine Urine Total Protein Heparin-induced Plt Ab Hep Bs Antibody, Quant Crossmatch 12/04/16 12/04/16 12/04/16 19:34 20:31 21:15 WBC RBC Hgb Hct MCV MCHC RDW Plt Count Lymph % (Auto) [place] % (Auto) [place] # Baso # Seg Neutrophils % Seg Neuts % (Manual) Lymphocytes % (Manual) Monocytes % (Manual) Nucleated RBC % Seg Neutrophils # Seg Neutrophils # Man Lymphocytes # (Manual) Monocytes # (Manual) Percent Retic Haptoglobin PT INR Fibrinogen D-Dimer POC ABG pH POC ABG pCO2 POC ABG pO2 Sodium Potassium Chloride Carbon Dioxide BUN Creatinine Glucose POC Glucose 189 H 126 H 139 H Lactic Acid Calcium Phosphorus Magnesium Iron TIBC Transferrin Total Bilirubin Direct Bilirubin AST ALT Alkaline Phosphatase Lactate Dehydrogenase CK-MB (CK-2) Troponin T C-Reactive Protein Total Protein Albumin Triglycerides Cholesterol HDL Cholesterol Vitamin B12 Urine Creatinine Urine Total Protein Heparin-induced Plt Ab Hep Bs Antibody, Quant Crossmatch 12/04/16 12/04/16 12/04/16 21:25 22:37 23:35 WBC RBC Hgb Hct MCV MCHC RDW Plt Count Lymph % (Auto) [place] % (Auto) [place] # Baso # Seg Neutrophils % Seg Neuts % (Manual) Lymphocytes % (Manual) Monocytes % (Manual) Nucleated RBC % Seg Neutrophils # Seg Neutrophils # Man Lymphocytes # (Manual) Monocytes # (Manual) Percent Retic Haptoglobin PT INR Fibrinogen D-Dimer POC ABG pH 7.294 L POC ABG pCO2 16.7 L POC ABG pO2 169 H Sodium Potassium Chloride Carbon Dioxide BUN Creatinine Glucose POC Glucose 131 H 106 H Lactic Acid Calcium Phosphorus Magnesium Iron TIBC Transferrin Total Bilirubin Direct Bilirubin AST ALT Alkaline Phosphatase Lactate Dehydrogenase CK-MB (CK-2) Troponin T C-Reactive Protein Total Protein Albumin Triglycerides Cholesterol HDL Cholesterol Vitamin B12 Urine Creatinine Urine Total Protein Heparin-induced Plt Ab Hep Bs Antibody, Quant Crossmatch 12/05/16 12/05/16 12/05/16 02:40 02:50 02:50 WBC RBC Hgb Hct MCV MCHC RDW Plt Count Lymph % (Auto) [place] % (Auto) [place] # Baso # Seg Neutrophils % Seg Neuts % (Manual) Lymphocytes % (Manual) Monocytes % (Manual) Nucleated RBC % Seg Neutrophils # Seg Neutrophils # Man Lymphocytes # (Manual) Monocytes # (Manual) Percent Retic Haptoglobin PT INR Fibrinogen D-Dimer POC ABG pH POC ABG pCO2 POC ABG pO2 Sodium 151 H Potassium Chloride 113.8 H Carbon Dioxide 12 L BUN 46 H Creatinine 3.2 H Glucose 165 H POC Glucose 109 H Lactic Acid 9.80 H* Calcium 8.3 L Phosphorus Magnesium Iron TIBC Transferrin Total Bilirubin Direct Bilirubin AST ALT Alkaline Phosphatase Lactate Dehydrogenase CK-MB (CK-2) Troponin T C-Reactive Protein Total Protein Albumin Triglycerides Cholesterol HDL Cholesterol Vitamin B12 Urine Creatinine Urine Total Protein Heparin-induced Plt Ab Hep Bs Antibody, Quant Crossmatch 12/05/16 12/05/16 12/05/16 04:01 04:30 04:30 WBC 19.1 H RBC 2.91 L Hgb 8.0 L Hct 25.4 L MCV MCHC RDW 17.8 H Plt Count Lymph % (Auto) [place] % (Auto) [place] # Baso # Seg Neutrophils % Seg Neuts % (Manual) 17.0 L Lymphocytes % (Manual) 7.0 L Monocytes % (Manual) Nucleated RBC % 3.0 H Seg Neutrophils # Seg Neutrophils # Man Lymphocytes # (Manual) Monocytes # (Manual) Percent Retic Haptoglobin PT INR Fibrinogen D-Dimer POC ABG pH POC ABG pCO2 POC ABG pO2 Sodium 152 H Potassium Chloride 113.5 H Carbon Dioxide 12 L BUN 47 H Creatinine 3.2 H Glucose 133 H POC Glucose 179 H Lactic Acid Calcium 8.3 L Phosphorus 1.00 L D Magnesium Iron TIBC Transferrin Total Bilirubin Direct Bilirubin AST ALT Alkaline Phosphatase Lactate Dehydrogenase CK-MB (CK-2) Troponin T C-Reactive Protein Total Protein Albumin Triglycerides Cholesterol HDL Cholesterol Vitamin B12 Urine Creatinine Urine Total Protein Heparin-induced Plt Ab Hep Bs Antibody, Quant Crossmatch 12/05/16 12/05/16 12/05/16 05:32 08:01 08:48 WBC RBC Hgb Hct MCV MCHC RDW Plt Count Lymph % (Auto) [place] % (Auto) [place] # Baso # Seg Neutrophils % Seg Neuts % (Manual) Lymphocytes % (Manual) Monocytes % (Manual) Nucleated RBC % Seg Neutrophils # Seg Neutrophils # Man Lymphocytes # (Manual) Monocytes # (Manual) Percent Retic Haptoglobin PT INR Fibrinogen D-Dimer POC ABG pH POC ABG pCO2 17.6 L POC ABG pO2 62 L Sodium Potassium Chloride Carbon Dioxide BUN Creatinine Glucose POC Glucose 126 H 130 H Lactic Acid Calcium Phosphorus Magnesium Iron TIBC Transferrin Total Bilirubin Direct Bilirubin AST ALT Alkaline Phosphatase Lactate Dehydrogenase CK-MB (CK-2) Troponin T C-Reactive Protein Total Protein Albumin Triglycerides Cholesterol HDL Cholesterol Vitamin B12 Urine Creatinine Urine Total Protein Heparin-induced Plt Ab Hep Bs Antibody, Quant Crossmatch 12/05/16 12/05/16 12/05/16 08:54 12:01 15:15 WBC RBC Hgb Hct MCV MCHC RDW Plt Count Lymph % (Auto) [place] % (Auto) [place] # Baso # Seg Neutrophils % Seg Neuts % (Manual) Lymphocytes % (Manual) Monocytes % (Manual) Nucleated RBC % Seg Neutrophils # Seg Neutrophils # Man Lymphocytes # (Manual) Monocytes # (Manual) Percent Retic Haptoglobin PT INR Fibrinogen D-Dimer POC ABG pH POC ABG pCO2 POC ABG pO2 Sodium Potassium Chloride Carbon Dioxide BUN Creatinine Glucose POC Glucose 157 H 117 H 166 H Lactic Acid Calcium Phosphorus Magnesium Iron TIBC Transferrin Total Bilirubin Direct Bilirubin AST ALT Alkaline Phosphatase Lactate Dehydrogenase CK-MB (CK-2) Troponin T C-Reactive Protein Total Protein Albumin Triglycerides Cholesterol HDL Cholesterol Vitamin B12 Urine Creatinine Urine Total Protein Heparin-induced Plt Ab Hep Bs Antibody, Quant Crossmatch 12/05/16 12/05/16 12/05/16 16:10 16:55 17:08 WBC RBC Hgb Hct MCV MCHC RDW Plt Count Lymph % (Auto) [place] % (Auto) [place] # Baso # Seg Neutrophils % Seg Neuts % (Manual) Lymphocytes % (Manual) Monocytes % (Manual) Nucleated RBC % Seg Neutrophils # Seg Neutrophils # Man Lymphocytes # (Manual) Monocytes # (Manual) Percent Retic Haptoglobin PT INR Fibrinogen D-Dimer POC ABG pH POC ABG pCO2 POC ABG pO2 Sodium Potassium Chloride Carbon Dioxide BUN Creatinine Glucose POC Glucose 178 H 169 H Lactic Acid Calcium Phosphorus 5.00 H D Magnesium Iron TIBC Transferrin Total Bilirubin Direct Bilirubin AST ALT Alkaline Phosphatase Lactate Dehydrogenase CK-MB (CK-2) Troponin T C-Reactive Protein Total Protein Albumin Triglycerides Cholesterol HDL Cholesterol Vitamin B12 Urine Creatinine Urine Total Protein Heparin-induced Plt Ab Hep Bs Antibody, Quant Crossmatch 12/05/16 12/05/16 12/05/16 18:08 18:51 20:04 WBC RBC Hgb Hct MCV MCHC RDW Plt Count Lymph % (Auto) [place] % (Auto) [place] # Baso # Seg Neutrophils % Seg Neuts % (Manual) Lymphocytes % (Manual) Monocytes % (Manual) Nucleated RBC % Seg Neutrophils # Seg Neutrophils # Man Lymphocytes # (Manual) Monocytes # (Manual) Percent Retic Haptoglobin PT INR Fibrinogen D-Dimer POC ABG pH POC ABG pCO2 POC ABG pO2 Sodium Potassium Chloride Carbon Dioxide BUN Creatinine Glucose POC Glucose 147 H 113 H 64 L Lactic Acid Calcium Phosphorus Magnesium Iron TIBC Transferrin Total Bilirubin Direct Bilirubin AST ALT Alkaline Phosphatase Lactate Dehydrogenase CK-MB (CK-2) Troponin T C-Reactive Protein Total Protein Albumin Triglycerides Cholesterol HDL Cholesterol Vitamin B12 Urine Creatinine Urine Total Protein Heparin-induced Plt Ab Hep Bs Antibody, Quant Crossmatch 12/05/16 12/05/16 12/05/16 21:34 22:08 23:19 WBC RBC Hgb Hct MCV MCHC RDW Plt Count Lymph % (Auto) [place] % (Auto) [place] # Baso # Seg Neutrophils % Seg Neuts % (Manual) Lymphocytes % (Manual) Monocytes % (Manual) Nucleated RBC % Seg Neutrophils # Seg Neutrophils # Man Lymphocytes # (Manual) Monocytes # (Manual) Percent Retic Haptoglobin PT INR Fibrinogen D-Dimer POC ABG pH 7.303 L POC ABG pCO2 18.3 L POC ABG pO2 73 L Sodium Potassium Chloride Carbon Dioxide BUN Creatinine Glucose POC Glucose 141 H 200 H Lactic Acid Calcium Phosphorus Magnesium Iron TIBC Transferrin Total Bilirubin Direct Bilirubin AST ALT Alkaline Phosphatase Lactate Dehydrogenase CK-MB (CK-2) Troponin T C-Reactive Protein Total Protein Albumin Triglycerides Cholesterol HDL Cholesterol Vitamin B12 Urine Creatinine Urine Total Protein Heparin-induced Plt Ab Hep Bs Antibody, Quant Crossmatch 12/06/16 12/06/16 12/06/16 00:01 01:09 02:00 WBC RBC Hgb Hct MCV MCHC RDW Plt Count Lymph % (Auto) [place] % (Auto) [place] # Baso # Seg Neutrophils % Seg Neuts % (Manual) Lymphocytes % (Manual) Monocytes % (Manual) Nucleated RBC % Seg Neutrophils # Seg Neutrophils # Man Lymphocytes # (Manual) Monocytes # (Manual) Percent Retic Haptoglobin PT INR Fibrinogen D-Dimer POC ABG pH POC ABG pCO2 POC ABG pO2 Sodium Potassium Chloride Carbon Dioxide BUN Creatinine Glucose POC Glucose 211 H 116 H 57 L Lactic Acid Calcium Phosphorus Magnesium Iron TIBC Transferrin Total Bilirubin Direct Bilirubin AST ALT Alkaline Phosphatase Lactate Dehydrogenase CK-MB (CK-2) Troponin T C-Reactive Protein Total Protein Albumin Triglycerides Cholesterol HDL Cholesterol Vitamin B12 Urine Creatinine Urine Total Protein Heparin-induced Plt Ab Hep Bs Antibody, Quant Crossmatch 12/06/16 12/06/16 12/06/16 04:14 04:50 04:50 WBC RBC 2.68 L Hgb 7.6 L Hct 23.2 L MCV MCHC RDW 18.9 H Plt Count Lymph % (Auto) [place] % (Auto) [place] # Baso # Seg Neutrophils % Seg Neuts % (Manual) 32.0 L Lymphocytes % (Manual) Monocytes % (Manual) Nucleated RBC % 3.0 H Seg Neutrophils # Seg Neutrophils # Man Lymphocytes # (Manual) 0.9 L Monocytes # (Manual) Percent Retic Haptoglobin PT INR Fibrinogen D-Dimer POC ABG pH POC ABG pCO2 POC ABG pO2 Sodium Potassium 5.8 H D Chloride 111.5 H Carbon Dioxide 11 L BUN 52 H Creatinine 3.8 H Glucose 186 H POC Glucose 133 H Lactic Acid Calcium 6.5 L D Phosphorus 5.80 H Magnesium Iron TIBC Transferrin Total Bilirubin Direct Bilirubin AST ALT Alkaline Phosphatase Lactate Dehydrogenase CK-MB (CK-2) Troponin T C-Reactive Protein Total Protein Albumin Triglycerides Cholesterol HDL Cholesterol Vitamin B12 Urine Creatinine Urine Total Protein Heparin-induced Plt Ab Hep Bs Antibody, Quant Crossmatch 12/06/16 12/06/16 12/06/16 04:50 05:04 05:07 WBC RBC Hgb Hct MCV MCHC RDW Plt Count Lymph % (Auto) [place] % (Auto) [place] # Baso # Seg Neutrophils % Seg Neuts % (Manual) Lymphocytes % (Manual) Monocytes % (Manual) Nucleated RBC % Seg Neutrophils # Seg Neutrophils # Man Lymphocytes # (Manual) Monocytes # (Manual) Percent Retic Haptoglobin PT INR Fibrinogen D-Dimer POC ABG pH POC ABG pCO2 13.0 L POC ABG pO2 111 H Sodium Potassium Chloride Carbon Dioxide BUN Creatinine Glucose POC Glucose 127 H Lactic Acid 6.50 H* Calcium Phosphorus Magnesium Iron TIBC Transferrin Total Bilirubin Direct Bilirubin AST ALT Alkaline Phosphatase Lactate Dehydrogenase CK-MB (CK-2) Troponin T C-Reactive Protein Total Protein Albumin Triglycerides Cholesterol HDL Cholesterol Vitamin B12 Urine Creatinine Urine Total Protein Heparin-induced Plt Ab Hep Bs Antibody, Quant Crossmatch 12/06/16 12/06/16 12/06/16 06:10 06:54 07:46 WBC RBC Hgb Hct MCV MCHC RDW Plt Count Lymph % (Auto) [place] % (Auto) [place] # Baso # Seg Neutrophils % Seg Neuts % (Manual) Lymphocytes % (Manual) Monocytes % (Manual) Nucleated RBC % Seg Neutrophils # Seg Neutrophils # Man Lymphocytes # (Manual) Monocytes # (Manual) Percent Retic Haptoglobin PT INR Fibrinogen D-Dimer POC ABG pH POC ABG pCO2 POC ABG pO2 Sodium Potassium Chloride Carbon Dioxide BUN Creatinine Glucose POC Glucose 219 H 237 H 158 H Lactic Acid Calcium Phosphorus Magnesium Iron TIBC Transferrin Total Bilirubin Direct Bilirubin AST ALT Alkaline Phosphatase Lactate Dehydrogenase CK-MB (CK-2) Troponin T C-Reactive Protein Total Protein Albumin Triglycerides Cholesterol HDL Cholesterol Vitamin B12 Urine Creatinine Urine Total Protein Heparin-induced Plt Ab Hep Bs Antibody, Quant Crossmatch 12/06/16 12/06/16 12/06/16 08:55 10:27 11:58 WBC RBC Hgb Hct MCV MCHC RDW Plt Count Lymph % (Auto) [place] % (Auto) [place] # Baso # Seg Neutrophils % Seg Neuts % (Manual) Lymphocytes % (Manual) Monocytes % (Manual) Nucleated RBC % Seg Neutrophils # Seg Neutrophils # Man Lymphocytes # (Manual) Monocytes # (Manual) Percent Retic Haptoglobin PT INR Fibrinogen D-Dimer POC ABG pH POC ABG pCO2 POC ABG pO2 Sodium Potassium Chloride Carbon Dioxide BUN Creatinine Glucose POC Glucose 40 L 128 H 144 H Lactic Acid Calcium Phosphorus Magnesium Iron TIBC Transferrin Total Bilirubin Direct Bilirubin AST ALT Alkaline Phosphatase Lactate Dehydrogenase CK-MB (CK-2) Troponin T C-Reactive Protein Total Protein Albumin Triglycerides Cholesterol HDL Cholesterol Vitamin B12 Urine Creatinine Urine Total Protein Heparin-induced Plt Ab Hep Bs Antibody, Quant Crossmatch 12/06/16 12/06/16 12/06/16 18:14 19:00 19:06 WBC RBC Hgb Hct MCV MCHC RDW Plt Count Lymph % (Auto) [place] % (Auto) [place] # Baso # Seg Neutrophils % Seg Neuts % (Manual) Lymphocytes % (Manual) Monocytes % (Manual) Nucleated RBC % Seg Neutrophils # Seg Neutrophils # Man Lymphocytes # (Manual) Monocytes # (Manual) Percent Retic Haptoglobin PT INR Fibrinogen D-Dimer POC ABG pH POC ABG pCO2 POC ABG pO2 Sodium 149 H Potassium 5.6 H Chloride 115.9 H Carbon Dioxide 13 L BUN 56 H Creatinine 4.3 H Glucose 124 H POC Glucose 55 L 148 H Lactic Acid Calcium 6.0 L Phosphorus Magnesium Iron TIBC Transferrin Total Bilirubin Direct Bilirubin AST ALT Alkaline Phosphatase Lactate Dehydrogenase CK-MB (CK-2) Troponin T C-Reactive Protein Total Protein Albumin Triglycerides Cholesterol HDL Cholesterol Vitamin B12 Urine Creatinine Urine Total Protein Heparin-induced Plt Ab Hep Bs Antibody, Quant Crossmatch 12/06/16 12/06/16 12/07/16 21:24 21:51 02:32 WBC RBC Hgb Hct MCV MCHC RDW Plt Count Lymph % (Auto) [place] % (Auto) [place] # Baso # Seg Neutrophils % Seg Neuts % (Manual) Lymphocytes % (Manual) Monocytes % (Manual) Nucleated RBC % Seg Neutrophils # Seg Neutrophils # Man Lymphocytes # (Manual) Monocytes # (Manual) Percent Retic Haptoglobin PT INR Fibrinogen D-Dimer POC ABG pH POC ABG pCO2 17.0 L POC ABG pO2 142 H Sodium Potassium Chloride Carbon Dioxide BUN Creatinine Glucose POC Glucose 107 H 175 H Lactic Acid Calcium Phosphorus Magnesium Iron TIBC Transferrin Total Bilirubin Direct Bilirubin AST ALT Alkaline Phosphatase Lactate Dehydrogenase CK-MB (CK-2) Troponin T C-Reactive Protein Total Protein Albumin Triglycerides Cholesterol HDL Cholesterol Vitamin B12 Urine Creatinine Urine Total Protein Heparin-induced Plt Ab Hep Bs Antibody, Quant Crossmatch 12/07/16 12/07/16 12/07/16 05:01 05:25 06:00 WBC RBC 2.52 L Hgb 7.1 L Hct 22.1 L MCV MCHC RDW 19.3 H Plt Count 90 L Lymph % (Auto) [place] % (Auto) [place] # Baso # Seg Neutrophils % Seg Neuts % (Manual) 75.0 H Lymphocytes % (Manual) 11.0 L Monocytes % (Manual) Nucleated RBC % Seg Neutrophils # Seg Neutrophils # Man Lymphocytes # (Manual) 0.7 L Monocytes # (Manual) Percent Retic Haptoglobin PT INR Fibrinogen D-Dimer POC ABG pH 7.300 L POC ABG pCO2 17.1 L POC ABG pO2 140 H Sodium Potassium Chloride Carbon Dioxide BUN Creatinine Glucose POC Glucose 279 H Lactic Acid Calcium Phosphorus Magnesium Iron TIBC Transferrin Total Bilirubin Direct Bilirubin AST ALT Alkaline Phosphatase Lactate Dehydrogenase CK-MB (CK-2) Troponin T C-Reactive Protein Total Protein Albumin Triglycerides Cholesterol HDL Cholesterol Vitamin B12 Urine Creatinine Urine Total Protein Heparin-induced Plt Ab Hep Bs Antibody, Quant Crossmatch 12/07/16 12/07/16 12/07/16 06:00 06:00 07:30 WBC RBC Hgb Hct MCV MCHC RDW Plt Count Lymph % (Auto) [place] % (Auto) [place] # Baso # Seg Neutrophils % Seg Neuts % (Manual) Lymphocytes % (Manual) Monocytes % (Manual) Nucleated RBC % Seg Neutrophils # Seg Neutrophils # Man Lymphocytes # (Manual) Monocytes # (Manual) Percent Retic Haptoglobin PT INR Fibrinogen D-Dimer POC ABG pH POC ABG pCO2 POC ABG pO2 Sodium Potassium Chloride Carbon Dioxide BUN Creatinine Glucose POC Glucose Lactic Acid 6.90 H* Calcium Phosphorus 6.80 H Magnesium Iron TIBC Transferrin Total Bilirubin Direct Bilirubin AST ALT Alkaline Phosphatase Lactate Dehydrogenase CK-MB (CK-2) Troponin T C-Reactive Protein 39.40 H Total Protein Albumin Triglycerides Cholesterol HDL Cholesterol Vitamin B12 Urine Creatinine Urine Total Protein Heparin-induced Plt Ab Hep Bs Antibody, Quant Crossmatch 12/07/16 12/07/16 12/07/16 08:40 10:53 14:31 WBC RBC Hgb Hct MCV MCHC RDW Plt Count Lymph % (Auto) [place] % (Auto) [place] # Baso # Seg Neutrophils % Seg Neuts % (Manual) Lymphocytes % (Manual) Monocytes % (Manual) Nucleated RBC % Seg Neutrophils # Seg Neutrophils # Man Lymphocytes # (Manual) Monocytes # (Manual) Percent Retic Haptoglobin PT INR Fibrinogen D-Dimer POC ABG pH POC ABG pCO2 POC ABG pO2 Sodium Potassium 7.0 H* D Chloride 112.4 H Carbon Dioxide 8 L* BUN 61 H Creatinine 5.1 H Glucose 213 H POC Glucose 353 H 52 L Lactic Acid Calcium 5.8 L* Phosphorus Magnesium Iron TIBC Transferrin Total Bilirubin Direct Bilirubin AST ALT Alkaline Phosphatase Lactate Dehydrogenase CK-MB (CK-2) Troponin T C-Reactive Protein Total Protein Albumin Triglycerides Cholesterol HDL Cholesterol Vitamin B12 Urine Creatinine Urine Total Protein Heparin-induced Plt Ab Hep Bs Antibody, Quant Crossmatch 12/07/16 12/07/16 12/07/16 14:45 15:33 16:22 WBC RBC Hgb Hct MCV MCHC RDW Plt Count Lymph % (Auto) [place] % (Auto) [place] # Baso # Seg Neutrophils % Seg Neuts % (Manual) Lymphocytes % (Manual) Monocytes % (Manual) Nucleated RBC % Seg Neutrophils # Seg Neutrophils # Man Lymphocytes # (Manual) Monocytes # (Manual) Percent Retic Haptoglobin PT 17.5 H INR 1.44 H Fibrinogen D-Dimer POC ABG pH POC ABG pCO2 POC ABG pO2 Sodium Potassium Chloride Carbon Dioxide BUN Creatinine Glucose POC Glucose < 40 L 118 H Lactic Acid Calcium Phosphorus Magnesium Iron TIBC Transferrin Total Bilirubin Direct Bilirubin AST ALT Alkaline Phosphatase Lactate Dehydrogenase CK-MB (CK-2) Troponin T C-Reactive Protein Total Protein Albumin Triglycerides Cholesterol HDL Cholesterol Vitamin B12 Urine Creatinine Urine Total Protein Heparin-induced Plt Ab Hep Bs Antibody, Quant Crossmatch 12/07/16 12/07/16 12/07/16 21:35 21:35 21:58 WBC RBC Hgb Hct MCV MCHC RDW Plt Count Lymph % (Auto) [place] % (Auto) [place] # Baso # Seg Neutrophils % Seg Neuts % (Manual) Lymphocytes % (Manual) Monocytes % (Manual) Nucleated RBC % Seg Neutrophils # Seg Neutrophils # Man Lymphocytes # (Manual) Monocytes # (Manual) Percent Retic Haptoglobin PT INR Fibrinogen D-Dimer POC ABG pH POC ABG pCO2 POC ABG pO2 Sodium 150 H Potassium 3.3 L D Chloride 111.4 H Carbon Dioxide 21 L D BUN 22 H Creatinine 2.6 H Glucose 23 L* POC Glucose < 40 L Lactic Acid Calcium Phosphorus Magnesium Iron TIBC Transferrin Total Bilirubin 1.40 H Direct Bilirubin 0.9 H AST 94 H ALT 142 H Alkaline Phosphatase 249 H Lactate Dehydrogenase CK-MB (CK-2) Troponin T C-Reactive Protein Total Protein 4.6 L D Albumin 2.1 L Triglycerides Cholesterol HDL Cholesterol Vitamin B12 Urine Creatinine Urine Total Protein Heparin-induced Plt Ab Hep Bs Antibody, Quant Crossmatch 12/07/16 12/08/1612/08/17 23:31 04:43 04:50 WBC RBC 2.35 L Hgb 6.6 L Hct 20.1 L MCV MCHC RDW 17.8 H Plt Count 48 L Lymph % (Auto) [place] % (Auto) [place] # Baso # Seg Neutrophils % Seg Neuts % (Manual) Lymphocytes % (Manual) Monocytes % (Manual) Nucleated RBC % Seg Neutrophils # Seg Neutrophils # Man Lymphocytes # (Manual) 0.9 L Monocytes # (Manual) Percent Retic Haptoglobin PT INR Fibrinogen D-Dimer POC ABG pH 7.586 H POC ABG pCO2 17.7 L POC ABG pO2 150 H Sodium Potassium Chloride Carbon Dioxide BUN Creatinine Glucose POC Glucose 42 L Lactic Acid Calcium Phosphorus Magnesium Iron TIBC Transferrin Total Bilirubin Direct Bilirubin AST ALT Alkaline Phosphatase Lactate Dehydrogenase CK-MB (CK-2) Troponin T C-Reactive Protein Total Protein Albumin Triglycerides Cholesterol HDL Cholesterol Vitamin B12 Urine Creatinine Urine Total Protein Heparin-induced Plt Ab Hep Bs Antibody, Quant Crossmatch 12/08/16 12/08/16 12/08/16 04:50 04:59 06:54 WBC RBC Hgb Hct MCV MCHC RDW Plt Count Lymph % (Auto) [place] % (Auto) [place] # Baso # Seg Neutrophils % Seg Neuts % (Manual) Lymphocytes % (Manual) Monocytes % (Manual) Nucleated RBC % Seg Neutrophils # Seg Neutrophils # Man Lymphocytes # (Manual) Monocytes # (Manual) Percent Retic Haptoglobin PT INR Fibrinogen D-Dimer POC ABG pH POC ABG pCO2 POC ABG pO2 Sodium 149 H Potassium 3.2 L Chloride 111.8 H Carbon Dioxide 17 L BUN 26 H Creatinine 3.4 H Glucose 163 H POC Glucose 204 H 203 H Lactic Acid Calcium 7.7 L Phosphorus 2.40 L D Magnesium Iron TIBC Transferrin Total Bilirubin Direct Bilirubin AST ALT Alkaline Phosphatase Lactate Dehydrogenase CK-MB (CK-2) Troponin T C-Reactive Protein Total Protein Albumin Triglycerides Cholesterol HDL Cholesterol Vitamin B12 Urine Creatinine Urine Total Protein Heparin-induced Plt Ab Hep Bs Antibody, Quant Crossmatch 12/08/16 12/08/16 12/08/16 08:04 08:46 08:46 WBC RBC Hgb Hct MCV MCHC RDW Plt Count Lymph % (Auto) [place] % (Auto) [place] # Baso # Seg Neutrophils % Seg Neuts % (Manual) Lymphocytes % (Manual) Monocytes % (Manual) Nucleated RBC % Seg Neutrophils # Seg Neutrophils # Man Lymphocytes # (Manual) Monocytes # (Manual) Percent Retic Haptoglobin PT INR Fibrinogen D-Dimer POC ABG pH POC ABG pCO2 POC ABG pO2 Sodium 147 H Potassium 2.9 L* Chloride 110.6 H Carbon Dioxide 17 L BUN 28 H Creatinine 3.6 H Glucose 127 H POC Glucose 205 H Lactic Acid Calcium 7.3 L Phosphorus Magnesium Iron TIBC Transferrin Total Bilirubin Direct Bilirubin AST ALT Alkaline Phosphatase Lactate Dehydrogenase CK-MB (CK-2) Troponin T C-Reactive Protein Total Protein Albumin Triglycerides Cholesterol HDL Cholesterol Vitamin B12 Urine Creatinine Urine Total Protein Heparin-induced Plt Ab Hep Bs Antibody, Quant Crossmatch See Detail 12/08/16 12/08/16 12/08/16 12:36 19:00 19:00 WBC RBC Hgb Hct MCV MCHC RDW Plt Count Lymph % (Auto) [place] % (Auto) [place] # Baso # Seg Neutrophils % Seg Neuts % (Manual) Lymphocytes % (Manual) Monocytes % (Manual) Nucleated RBC % Seg Neutrophils # Seg Neutrophils # Man Lymphocytes # (Manual) Monocytes # (Manual) Percent Retic Haptoglobin PT 15.3 H INR 1.22 H Fibrinogen 563 H D-Dimer 5507.36 H POC ABG pH POC ABG pCO2 POC ABG pO2 Sodium Potassium Chloride Carbon Dioxide 21 L BUN Creatinine 1.7 H D Glucose 155 H POC Glucose 181 H Lactic Acid Calcium Phosphorus Magnesium Iron TIBC Transferrin Total Bilirubin Direct Bilirubin AST ALT Alkaline Phosphatase Lactate Dehydrogenase CK-MB (CK-2) Troponin T C-Reactive Protein Total Protein Albumin Triglycerides Cholesterol HDL Cholesterol Vitamin B12 Urine Creatinine Urine Total Protein Heparin-induced Plt Ab Hep Bs Antibody, Quant Crossmatch 12/08/16 12/08/16 12/08/16 19:00 19:00 21:30 WBC RBC 2.76 L Hgb 7.8 L Hct 23.7 L MCV MCHC RDW 17.0 H Plt Count 38 L Lymph % (Auto) [place] % (Auto) [place] # Baso # Seg Neutrophils % Seg Neuts % (Manual) Lymphocytes % (Manual) Monocytes % (Manual) Nucleated RBC % Seg Neutrophils # Seg Neutrophils # Man Lymphocytes # (Manual) Monocytes # (Manual) Percent Retic Haptoglobin 271 H PT INR Fibrinogen D-Dimer POC ABG pH POC ABG pCO2 POC ABG pO2 Sodium Potassium Chloride Carbon Dioxide BUN Creatinine Glucose POC Glucose Lactic Acid Calcium Phosphorus Magnesium Iron TIBC Transferrin Total Bilirubin Direct Bilirubin AST ALT Alkaline Phosphatase Lactate Dehydrogenase 382 H CK-MB (CK-2) Troponin T C-Reactive Protein Total Protein Albumin Triglycerides Cholesterol HDL Cholesterol Vitamin B12 Urine Creatinine Urine Total Protein Heparin-induced Plt Ab Hep Bs Antibody, Quant Crossmatch 12/08/16 12/08/16 12/09/16 23:32 23:44 05:22 WBC RBC Hgb Hct MCV MCHC RDW Plt Count Lymph % (Auto) [place] % (Auto) [place] # Baso # Seg Neutrophils % Seg Neuts % (Manual) Lymphocytes % (Manual) Monocytes % (Manual) Nucleated RBC % Seg Neutrophils # Seg Neutrophils # Man Lymphocytes # (Manual) Monocytes # (Manual) Percent Retic Haptoglobin PT INR Fibrinogen D-Dimer POC ABG pH 7.498 H POC ABG pCO2 25.2 L POC ABG pO2 137 H Sodium Potassium Chloride Carbon Dioxide BUN Creatinine Glucose POC Glucose 311 H 113 H Lactic Acid Calcium Phosphorus Magnesium Iron TIBC Transferrin Total Bilirubin Direct Bilirubin AST ALT Alkaline Phosphatase Lactate Dehydrogenase CK-MB (CK-2) Troponin T C-Reactive Protein Total Protein Albumin Triglycerides Cholesterol HDL Cholesterol Vitamin B12 Urine Creatinine Urine Total Protein Heparin-induced Plt Ab Hep Bs Antibody, Quant Crossmatch 12/09/16 12/09/16 12/09/16 06:00 11:29 11:59 WBC RBC Hgb Hct MCV MCHC RDW Plt Count Lymph % (Auto) [place] % (Auto) [place] # Baso # Seg Neutrophils % Seg Neuts % (Manual) Lymphocytes % (Manual) Monocytes % (Manual) Nucleated RBC % Seg Neutrophils # Seg Neutrophils # Man Lymphocytes # (Manual) Monocytes # (Manual) Percent Retic 0.23 L Haptoglobin PT INR Fibrinogen D-Dimer POC ABG pH POC ABG pCO2 POC ABG pO2 Sodium Potassium Chloride 110.2 H Carbon Dioxide 18 L BUN 19 H Creatinine 2.5 H Glucose 105 H POC Glucose 254 H Lactic Acid Calcium Phosphorus 2.00 L Magnesium Iron TIBC Transferrin Total Bilirubin Direct Bilirubin AST ALT Alkaline Phosphatase Lactate Dehydrogenase CK-MB (CK-2) Troponin T C-Reactive Protein Total Protein Albumin Triglycerides Cholesterol HDL Cholesterol Vitamin B12 Urine Creatinine Urine Total Protein Heparin-induced Plt Ab Hep Bs Antibody, Quant Crossmatch 12/09/16 12/09/16 12/09/16 12:02 13:27 13:27 WBC RBC Hgb Hct MCV MCHC RDW Plt Count Lymph % (Auto) [place] % (Auto) [place] # Baso # Seg Neutrophils % Seg Neuts % (Manual) Lymphocytes % (Manual) Monocytes % (Manual) Nucleated RBC % Seg Neutrophils # Seg Neutrophils # Man Lymphocytes # (Manual) Monocytes # (Manual) Percent Retic Haptoglobin PT INR Fibrinogen D-Dimer POC ABG pH 7.326 L POC ABG pCO2 POC ABG pO2 115 H Sodium Potassium Chloride Carbon Dioxide BUN Creatinine Glucose POC Glucose Lactic Acid Calcium Phosphorus Magnesium Iron 15 L TIBC 134 L Transferrin Total Bilirubin Direct Bilirubin AST ALT Alkaline Phosphatase Lactate Dehydrogenase CK-MB (CK-2) Troponin T C-Reactive Protein Total Protein Albumin Triglycerides Cholesterol HDL Cholesterol Vitamin B12 > 2000 H Urine Creatinine Urine Total Protein Heparin-induced Plt Ab Hep Bs Antibody, Quant Crossmatch 12/09/16 12/09/16 12/09/16 13:27 13:27 16:28 WBC RBC Hgb Hct MCV MCHC RDW Plt Count Lymph % (Auto) [place] % (Auto) [place] # Baso # Seg Neutrophils % Seg Neuts % (Manual) Lymphocytes % (Manual) Monocytes % (Manual) Nucleated RBC % Seg Neutrophils # Seg Neutrophils # Man Lymphocytes # (Manual) Monocytes # (Manual) Percent Retic Haptoglobin PT INR Fibrinogen D-Dimer POC ABG pH POC ABG pCO2 POC ABG pO2 Sodium Potassium Chloride Carbon Dioxide BUN Creatinine Glucose POC Glucose 199 H Lactic Acid Calcium Phosphorus Magnesium Iron TIBC Transferrin Total Bilirubin Direct Bilirubin AST ALT Alkaline Phosphatase Lactate Dehydrogenase CK-MB (CK-2) Troponin T C-Reactive Protein Total Protein Albumin Triglycerides Cholesterol HDL Cholesterol Vitamin B12 Urine Creatinine Urine Total Protein Heparin-induced Plt Ab Weak positive H Hep Bs Antibody, Quant <5 L Crossmatch 12/09/16 12/09/16 12/10/16 23:27 Unknown 05:36 WBC 11.3 H RBC 2.92 L Hgb 8.4 L Hct 25.3 L MCV MCHC RDW 16.9 H Plt Count 31 L Lymph % (Auto) [place] % (Auto) [place] # Baso # Seg Neutrophils % Seg Neuts % (Manual) Lymphocytes % (Manual) Monocytes % (Manual) Nucleated RBC % Seg Neutrophils # Seg Neutrophils # Man Lymphocytes # (Manual) Monocytes # (Manual) Percent Retic Haptoglobin PT INR Fibrinogen D-Dimer POC ABG pH POC ABG pCO2 POC ABG pO2 Sodium Potassium Chloride Carbon Dioxide BUN Creatinine Glucose POC Glucose 247 H 248 H Lactic Acid Calcium Phosphorus Magnesium Iron TIBC Transferrin Total Bilirubin Direct Bilirubin AST ALT Alkaline Phosphatase Lactate Dehydrogenase CK-MB (CK-2) Troponin T C-Reactive Protein Total Protein Albumin Triglycerides Cholesterol HDL Cholesterol Vitamin B12 Urine Creatinine Urine Total Protein Heparin-induced Plt Ab Hep Bs Antibody, Quant Crossmatch 12/10/16 12/10/16 12/10/16 09:55 09:55 11:49 WBC 21.2 H RBC 3.37 L Hgb 9.6 L Hct 29.5 L MCV MCHC RDW 16.3 H Plt Count 102 L D Lymph % (Auto) [place] % (Auto) [place] # Baso # Seg Neutrophils % Seg Neuts % (Manual) Lymphocytes % (Manual) Monocytes % (Manual) Nucleated RBC % Seg Neutrophils # Seg Neutrophils # Man Lymphocytes # (Manual) Monocytes # (Manual) Percent Retic Haptoglobin PT INR Fibrinogen D-Dimer POC ABG pH POC ABG pCO2 POC ABG pO2 Sodium Potassium Chloride 107.4 H Carbon Dioxide 21 L BUN 37 H Creatinine 4.2 H D Glucose 174 H POC Glucose 265 H Lactic Acid Calcium Phosphorus Magnesium Iron TIBC Transferrin Total Bilirubin Direct Bilirubin AST ALT Alkaline Phosphatase Lactate Dehydrogenase CK-MB (CK-2) Troponin T C-Reactive Protein Total Protein Albumin Triglycerides Cholesterol HDL Cholesterol Vitamin B12 Urine Creatinine Urine Total Protein Heparin-induced Plt Ab Hep Bs Antibody, Quant Crossmatch 12/10/16 12/10/16 12/11/16 17:56 23:44 04:30 WBC 23.5 H RBC 3.46 L Hgb 9.7 L Hct 30.1 L MCV MCHC RDW 16.4 H Plt Count 115 L Lymph % (Auto) [place] % (Auto) [place] # Baso # Seg Neutrophils % Seg Neuts % (Manual) 84.0 H Lymphocytes % (Manual) 5.0 L Monocytes % (Manual) 10.0 H Nucleated RBC % 1.0 H Seg Neutrophils # Seg Neutrophils # Man 19.7 H Lymphocytes # (Manual) Monocytes # (Manual) 2.4 H Percent Retic Haptoglobin PT INR Fibrinogen D-Dimer POC ABG pH POC ABG pCO2 POC ABG pO2 Sodium Potassium Chloride Carbon Dioxide BUN Creatinine Glucose POC Glucose 118 H 378 H Lactic Acid Calcium Phosphorus Magnesium Iron TIBC Transferrin Total Bilirubin Direct Bilirubin AST ALT Alkaline Phosphatase Lactate Dehydrogenase CK-MB (CK-2) Troponin T C-Reactive Protein Total Protein Albumin Triglycerides Cholesterol HDL Cholesterol Vitamin B12 Urine Creatinine Urine Total Protein Heparin-induced Plt Ab Hep Bs Antibody, Quant Crossmatch 12/11/16 12/11/16 12/11/16 04:30 05:33 12:48 WBC RBC Hgb Hct MCV MCHC RDW Plt Count Lymph % (Auto) [place] % (Auto) [place] # Baso # Seg Neutrophils % Seg Neuts % (Manual) Lymphocytes % (Manual) Monocytes % (Manual) Nucleated RBC % Seg Neutrophils # Seg Neutrophils # Man Lymphocytes # (Manual) Monocytes # (Manual) Percent Retic Haptoglobin PT INR Fibrinogen D-Dimer POC ABG pH POC ABG pCO2 POC ABG pO2 Sodium Potassium Chloride Carbon Dioxide 21 L BUN 50 H Creatinine 4.8 H Glucose 303 H POC Glucose 335 H 325 H Lactic Acid Calcium 8.2 L Phosphorus Magnesium Iron TIBC Transferrin Total Bilirubin Direct Bilirubin AST ALT Alkaline Phosphatase Lactate Dehydrogenase CK-MB (CK-2) Troponin T C-Reactive Protein Total Protein Albumin Triglycerides Cholesterol HDL Cholesterol Vitamin B12 Urine Creatinine Urine Total Protein Heparin-induced Plt Ab Hep Bs Antibody, Quant Crossmatch 12/11/16 12/11/16 12/12/16 17:49 21:16 00:49 WBC RBC Hgb Hct MCV MCHC RDW Plt Count Lymph % (Auto) [place] % (Auto) [place] # Baso # Seg Neutrophils % Seg Neuts % (Manual) Lymphocytes % (Manual) Monocytes % (Manual) Nucleated RBC % Seg Neutrophils # Seg Neutrophils # Man Lymphocytes # (Manual) Monocytes # (Manual) Percent Retic Haptoglobin PT INR Fibrinogen D-Dimer POC ABG pH POC ABG pCO2 POC ABG pO2 Sodium Potassium Chloride Carbon Dioxide BUN Creatinine Glucose POC Glucose 368 H 162 H 225 H Lactic Acid Calcium Phosphorus Magnesium Iron TIBC Transferrin Total Bilirubin Direct Bilirubin AST ALT Alkaline Phosphatase Lactate Dehydrogenase CK-MB (CK-2) Troponin T C-Reactive Protein Total Protein Albumin Triglycerides Cholesterol HDL Cholesterol Vitamin B12 Urine Creatinine Urine Total Protein Heparin-induced Plt Ab Hep Bs Antibody, Quant Crossmatch 12/12/16 12/12/16 12/12/16 06:09 07:52 08:18 WBC 24.1 H RBC 3.16 L Hgb 9.0 L Hct 29.4 L MCV MCHC RDW 16.6 H Plt Count 96 L Lymph % (Auto) [place] % (Auto) [place] # Baso # Seg Neutrophils % Seg Neuts % (Manual) 75.0 H Lymphocytes % (Manual) Monocytes % (Manual) Nucleated RBC % Seg Neutrophils # Seg Neutrophils # Man 18.1 H Lymphocytes # (Manual) Monocytes # (Manual) 1.4 H Percent Retic Haptoglobin PT INR Fibrinogen D-Dimer POC ABG pH POC ABG pCO2 POC ABG pO2 Sodium Potassium Chloride Carbon Dioxide BUN Creatinine Glucose POC Glucose 428 H 418 H Lactic Acid Calcium Phosphorus Magnesium Iron TIBC Transferrin Total Bilirubin Direct Bilirubin AST ALT Alkaline Phosphatase Lactate Dehydrogenase CK-MB (CK-2) Troponin T C-Reactive Protein Total Protein Albumin Triglycerides Cholesterol HDL Cholesterol Vitamin B12 Urine Creatinine Urine Total Protein Heparin-induced Plt Ab Hep Bs Antibody, Quant Crossmatch 12/12/16 12/12/16 12/12/16 08:18 11:31 17:03 WBC RBC Hgb Hct MCV MCHC RDW Plt Count Lymph % (Auto) [place] % (Auto) [place] # Baso # Seg Neutrophils % Seg Neuts % (Manual) Lymphocytes % (Manual) Monocytes % (Manual) Nucleated RBC % Seg Neutrophils # Seg Neutrophils # Man Lymphocytes # (Manual) Monocytes # (Manual) Percent Retic Haptoglobin PT INR Fibrinogen D-Dimer POC ABG pH POC ABG pCO2 POC ABG pO2 Sodium Potassium Chloride Carbon Dioxide 12 L D BUN 41 H Creatinine 4.5 H Glucose 369 H POC Glucose 212 H 422 H Lactic Acid Calcium Phosphorus Magnesium Iron TIBC Transferrin Total Bilirubin Direct Bilirubin AST ALT Alkaline Phosphatase Lactate Dehydrogenase CK-MB (CK-2) Troponin T C-Reactive Protein Total Protein Albumin Triglycerides Cholesterol HDL Cholesterol Vitamin B12 Urine Creatinine Urine Total Protein Heparin-induced Plt Ab Hep Bs Antibody, Quant Crossmatch 12/12/16 12/13/16 12/13/16 21:35 07:49 07:49 WBC 24.0 H RBC 2.90 L Hgb 8.3 L Hct 25.8 L MCV MCHC RDW 15.5 H Plt Count 120 L Lymph % (Auto) [place] % (Auto) [place] # Baso # Seg Neutrophils % Seg Neuts % (Manual) 89.0 H Lymphocytes % (Manual) 7.0 L Monocytes % (Manual) Nucleated RBC % Seg Neutrophils # Seg Neutrophils # Man 21.4 H Lymphocytes # (Manual) Monocytes # (Manual) Percent Retic Haptoglobin PT INR Fibrinogen D-Dimer POC ABG pH POC ABG pCO2 POC ABG pO2 Sodium Potassium 3.2 L Chloride Carbon Dioxide BUN 21 H Creatinine 3.0 H Glucose 21 L* POC Glucose 185 H Lactic Acid Calcium Phosphorus Magnesium Iron TIBC Transferrin Total Bilirubin Direct Bilirubin AST ALT Alkaline Phosphatase Lactate Dehydrogenase CK-MB (CK-2) Troponin T C-Reactive Protein Total Protein Albumin Triglycerides Cholesterol HDL Cholesterol Vitamin B12 Urine Creatinine Urine Total Protein Heparin-induced Plt Ab Hep Bs Antibody, Quant Crossmatch 12/13/16 12/13/16 12/13/16 09:57 11:02 16:52 WBC RBC Hgb Hct MCV MCHC RDW Plt Count Lymph % (Auto) [place] % (Auto) [place] # Baso # Seg Neutrophils % Seg Neuts % (Manual) Lymphocytes % (Manual) Monocytes % (Manual) Nucleated RBC % Seg Neutrophils # Seg Neutrophils # Man Lymphocytes # (Manual) Monocytes # (Manual) Percent Retic Haptoglobin PT INR Fibrinogen D-Dimer POC ABG pH POC ABG pCO2 POC ABG pO2 Sodium Potassium Chloride Carbon Dioxide BUN Creatinine Glucose POC Glucose < 40 L 231 H 312 H Lactic Acid Calcium Phosphorus Magnesium Iron TIBC Transferrin Total Bilirubin Direct Bilirubin AST ALT Alkaline Phosphatase Lactate Dehydrogenase CK-MB (CK-2) Troponin T C-Reactive Protein Total Protein Albumin Triglycerides Cholesterol HDL Cholesterol Vitamin B12 Urine Creatinine Urine Total Protein Heparin-induced Plt Ab Hep Bs Antibody, Quant Crossmatch 12/13/16 12/14/16 12/14/16 21:32 07:07 07:07 WBC 16.7 H RBC 2.80 L Hgb 7.9 L Hct 24.7 L MCV MCHC RDW 15.4 H Plt Count 131 L Lymph % (Auto) 13.1 L [place] % (Auto) [place] # 1.2 H Baso # Seg Neutrophils % 78.3 H Seg Neuts % (Manual) Lymphocytes % (Manual) Monocytes % (Manual) Nucleated RBC % Seg Neutrophils # 13.1 H Seg Neutrophils # Man Lymphocytes # (Manual) Monocytes # (Manual) Percent Retic Haptoglobin PT INR Fibrinogen D-Dimer POC ABG pH POC ABG pCO2 POC ABG pO2 Sodium Potassium 3.5 L Chloride Carbon Dioxide BUN 30 H Creatinine 4.6 H D Glucose 181 H POC Glucose 275 H Lactic Acid Calcium 7.7 L Phosphorus Magnesium Iron TIBC Transferrin Total Bilirubin Direct Bilirubin AST ALT Alkaline Phosphatase Lactate Dehydrogenase CK-MB (CK-2) Troponin T C-Reactive Protein Total Protein Albumin Triglycerides Cholesterol HDL Cholesterol Vitamin B12 Urine Creatinine Urine Total Protein Heparin-induced Plt Ab Hep Bs Antibody, Quant Crossmatch 12/14/16 12/14/16 12/14/16 07:46 11:35 16:24 WBC RBC Hgb Hct MCV MCHC RDW Plt Count Lymph % (Auto) [place] % (Auto) [place] # Baso # Seg Neutrophils % Seg Neuts % (Manual) Lymphocytes % (Manual) Monocytes % (Manual) Nucleated RBC % Seg Neutrophils # Seg Neutrophils # Man Lymphocytes # (Manual) Monocytes # (Manual) Percent Retic Haptoglobin PT INR Fibrinogen D-Dimer POC ABG pH POC ABG pCO2 POC ABG pO2 Sodium Potassium Chloride Carbon Dioxide BUN Creatinine Glucose POC Glucose 189 H 254 H 466 H Lactic Acid Calcium Phosphorus Magnesium Iron TIBC Transferrin Total Bilirubin Direct Bilirubin AST ALT Alkaline Phosphatase Lactate Dehydrogenase CK-MB (CK-2) Troponin T C-Reactive Protein Total Protein Albumin Triglycerides Cholesterol HDL Cholesterol Vitamin B12 Urine Creatinine Urine Total Protein Heparin-induced Plt Ab Hep Bs Antibody, Quant Crossmatch 12/14/16 12/15/16 12/15/16 20:57 06:27 07:46 WBC RBC Hgb Hct MCV MCHC RDW Plt Count Lymph % (Auto) [place] % (Auto) [place] # Baso # Seg Neutrophils % Seg Neuts % (Manual) Lymphocytes % (Manual) Monocytes % (Manual) Nucleated RBC % Seg Neutrophils # Seg Neutrophils # Man Lymphocytes # (Manual) Monocytes # (Manual) Percent Retic Haptoglobin PT INR Fibrinogen D-Dimer POC ABG pH POC ABG pCO2 POC ABG pO2 Sodium Potassium Chloride Carbon Dioxide BUN Creatinine Glucose POC Glucose 301 H 183 H 231 H Lactic Acid Calcium Phosphorus Magnesium Iron TIBC Transferrin Total Bilirubin Direct Bilirubin AST ALT Alkaline Phosphatase Lactate Dehydrogenase CK-MB (CK-2) Troponin T C-Reactive Protein Total Protein Albumin Triglycerides Cholesterol HDL Cholesterol Vitamin B12 Urine Creatinine Urine Total Protein Heparin-induced Plt Ab Hep Bs Antibody, Quant Crossmatch 12/15/16 12/15/16 12/15/16 11:38 15:34 20:51 WBC RBC Hgb Hct MCV MCHC RDW Plt Count Lymph % (Auto) [place] % (Auto) [place] # Baso # Seg Neutrophils % Seg Neuts % (Manual) Lymphocytes % (Manual) Monocytes % (Manual) Nucleated RBC % Seg Neutrophils # Seg Neutrophils # Man Lymphocytes # (Manual) Monocytes # (Manual) Percent Retic Haptoglobin PT INR Fibrinogen D-Dimer POC ABG pH POC ABG pCO2 POC ABG pO2 Sodium Potassium Chloride Carbon Dioxide BUN Creatinine Glucose POC Glucose 375 H 313 H 274 H Lactic Acid Calcium Phosphorus Magnesium Iron TIBC Transferrin Total Bilirubin Direct Bilirubin AST ALT Alkaline Phosphatase Lactate Dehydrogenase CK-MB (CK-2) Troponin T C-Reactive Protein Total Protein Albumin Triglycerides Cholesterol HDL Cholesterol Vitamin B12 Urine Creatinine Urine Total Protein Heparin-induced Plt Ab Hep Bs Antibody, Quant Crossmatch 12/16/16 12/16/16 12/16/16 08:26 09:12 17:13 WBC RBC Hgb Hct MCV MCHC RDW Plt Count Lymph % (Auto) [place] % (Auto) [place] # Baso # Seg Neutrophils % Seg Neuts % (Manual) Lymphocytes % (Manual) Monocytes % (Manual) Nucleated RBC % Seg Neutrophils # Seg Neutrophils # Man Lymphocytes # (Manual) Monocytes # (Manual) Percent Retic Haptoglobin PT INR Fibrinogen D-Dimer POC ABG pH POC ABG pCO2 POC ABG pO2 Sodium Potassium Chloride Carbon Dioxide BUN Creatinine Glucose POC Glucose 59 L 127 H > 500 H Lactic Acid Calcium Phosphorus Magnesium Iron TIBC Transferrin Total Bilirubin Direct Bilirubin AST ALT Alkaline Phosphatase Lactate Dehydrogenase CK-MB (CK-2) Troponin T C-Reactive Protein Total Protein Albumin Triglycerides Cholesterol HDL Cholesterol Vitamin B12 Urine Creatinine Urine Total Protein Heparin-induced Plt Ab Hep Bs Antibody, Quant Crossmatch 12/16/16 12/16/16 12/16/16 22:59 Unknown Unknown WBC 17.2 H RBC 2.83 L Hgb 7.9 L Hct 24.4 L MCV MCHC RDW Plt Count Lymph % (Auto) 9.2 L [place] % (Auto) [place] # 0.9 H Baso # Seg Neutrophils % 84.1 H Seg Neuts % (Manual) Lymphocytes % (Manual) Monocytes % (Manual) Nucleated RBC % Seg Neutrophils # 14.5 H Seg Neutrophils # Man Lymphocytes # (Manual) Monocytes # (Manual) Percent Retic Haptoglobin PT INR Fibrinogen D-Dimer POC ABG pH POC ABG pCO2 POC ABG pO2 Sodium Potassium Chloride Carbon Dioxide BUN 43 H Creatinine 5.4 H Glucose 131 H POC Glucose 320 H Lactic Acid Calcium 6.9 L Phosphorus Magnesium Iron TIBC Transferrin Total Bilirubin Direct Bilirubin AST ALT Alkaline Phosphatase Lactate Dehydrogenase CK-MB (CK-2) Troponin T C-Reactive Protein Total Protein Albumin Triglycerides Cholesterol HDL Cholesterol Vitamin B12 Urine Creatinine Urine Total Protein Heparin-induced Plt Ab Hep Bs Antibody, Quant Crossmatch 12/17/16 12/17/16 12/17/16 08:26 08:56 09:52 WBC RBC Hgb Hct MCV MCHC RDW Plt Count Lymph % (Auto) [place] % (Auto) [place] # Baso # Seg Neutrophils % Seg Neuts % (Manual) Lymphocytes % (Manual) Monocytes % (Manual) Nucleated RBC % Seg Neutrophils # Seg Neutrophils # Man Lymphocytes # (Manual) Monocytes # (Manual) Percent Retic Haptoglobin PT INR Fibrinogen D-Dimer POC ABG pH POC ABG pCO2 POC ABG pO2 Sodium Potassium Chloride Carbon Dioxide BUN Creatinine Glucose POC Glucose < 40 L 40 L 133 H Lactic Acid Calcium Phosphorus Magnesium Iron TIBC Transferrin Total Bilirubin Direct Bilirubin AST ALT Alkaline Phosphatase Lactate Dehydrogenase CK-MB (CK-2) Troponin T C-Reactive Protein Total Protein Albumin Triglycerides Cholesterol HDL Cholesterol Vitamin B12 Urine Creatinine Urine Total Protein Heparin-induced Plt Ab Hep Bs Antibody, Quant Crossmatch 12/17/16 12/17/16 12/17/16 12:51 16:08 21:00 WBC RBC Hgb Hct MCV MCHC RDW Plt Count Lymph % (Auto) [place] % (Auto) [place] # Baso # Seg Neutrophils % Seg Neuts % (Manual) Lymphocytes % (Manual) Monocytes % (Manual) Nucleated RBC % Seg Neutrophils # Seg Neutrophils # Man Lymphocytes # (Manual) Monocytes # (Manual) Percent Retic Haptoglobin PT INR Fibrinogen D-Dimer POC ABG pH POC ABG pCO2 POC ABG pO2 Sodium Potassium Chloride Carbon Dioxide BUN Creatinine Glucose POC Glucose 177 H 303 H 489 H Lactic Acid Calcium Phosphorus Magnesium Iron TIBC Transferrin Total Bilirubin Direct Bilirubin AST ALT Alkaline Phosphatase Lactate Dehydrogenase CK-MB (CK-2) Troponin T C-Reactive Protein Total Protein Albumin Triglycerides Cholesterol HDL Cholesterol Vitamin B12 Urine Creatinine Urine Total Protein Heparin-induced Plt Ab Hep Bs Antibody, Quant Crossmatch 12/17/16 12/17/16 12/18/16 Unknown Unknown 05:50 WBC 16.6 H 15.6 H RBC 2.63 L 2.58 L Hgb 7.5 L 7.3 L Hct 23.3 L 23.0 L MCV MCHC RDW 15.3 H 15.9 H Plt Count Lymph % (Auto) 7.7 L 8.7 L [place] % (Auto) [place] # 0.9 H Baso # Seg Neutrophils % 85.8 H 83.6 H Seg Neuts % (Manual) Lymphocytes % (Manual) Monocytes % (Manual) Nucleated RBC % Seg Neutrophils # 14.3 H 13.0 H Seg Neutrophils # Man Lymphocytes # (Manual) Monocytes # (Manual) Percent Retic Haptoglobin PT INR Fibrinogen D-Dimer POC ABG pH POC ABG pCO2 POC ABG pO2 Sodium Potassium 3.5 L Chloride Carbon Dioxide BUN 47 H Creatinine 5.2 H Glucose 173 H POC Glucose Lactic Acid Calcium 6.9 L Phosphorus Magnesium Iron TIBC Transferrin Total Bilirubin Direct Bilirubin AST ALT Alkaline Phosphatase Lactate Dehydrogenase CK-MB (CK-2) Troponin T C-Reactive Protein Total Protein Albumin Triglycerides Cholesterol HDL Cholesterol Vitamin B12 Urine Creatinine Urine Total Protein Heparin-induced Plt Ab Hep Bs Antibody, Quant Crossmatch 12/18/16 12/18/16 12/18/16 05:50 09:09 16:46 WBC RBC Hgb Hct MCV MCHC RDW Plt Count Lymph % (Auto) [place] % (Auto) [place] # Baso # Seg Neutrophils % Seg Neuts % (Manual) Lymphocytes % (Manual) Monocytes % (Manual) Nucleated RBC % Seg Neutrophils # Seg Neutrophils # Man Lymphocytes # (Manual) Monocytes # (Manual) Percent Retic Haptoglobin PT INR Fibrinogen D-Dimer POC ABG pH POC ABG pCO2 POC ABG pO2 Sodium Potassium Chloride Carbon Dioxide 17 L BUN 46 H Creatinine 5.0 H Glucose 252 H POC Glucose 349 H 324 H Lactic Acid Calcium 6.8 L Phosphorus Magnesium Iron TIBC Transferrin Total Bilirubin Direct Bilirubin AST ALT Alkaline Phosphatase Lactate Dehydrogenase CK-MB (CK-2) Troponin T C-Reactive Protein Total Protein Albumin Triglycerides Cholesterol HDL Cholesterol Vitamin B12 Urine Creatinine Urine Total Protein Heparin-induced Plt Ab Hep Bs Antibody, Quant Crossmatch 12/18/16 12/19/16 12/19/16 21:14 08:12 10:23 WBC 13.7 H RBC 2.60 L Hgb 7.5 L Hct 23.1 L MCV MCHC RDW 15.7 H Plt Count Lymph % (Auto) 9.1 L [place] % (Auto) [place] # 0.9 H Baso # Seg Neutrophils % 82.2 H Seg Neuts % (Manual) Lymphocytes % (Manual) Monocytes % (Manual) Nucleated RBC % Seg Neutrophils # 11.3 H Seg Neutrophils # Man Lymphocytes # (Manual) Monocytes # (Manual) Percent Retic Haptoglobin PT INR Fibrinogen D-Dimer POC ABG pH POC ABG pCO2 POC ABG pO2 Sodium Potassium Chloride Carbon Dioxide BUN Creatinine Glucose POC Glucose 316 H 464 H Lactic Acid Calcium Phosphorus Magnesium Iron TIBC Transferrin Total Bilirubin Direct Bilirubin AST ALT Alkaline Phosphatase Lactate Dehydrogenase CK-MB (CK-2) Troponin T C-Reactive Protein Total Protein Albumin Triglycerides Cholesterol HDL Cholesterol Vitamin B12 Urine Creatinine Urine Total Protein Heparin-induced Plt Ab Hep Bs Antibody, Quant Crossmatch 12/19/16 12/19/16 12/19/16 10:23 11:39 16:00 WBC RBC Hgb Hct MCV MCHC RDW Plt Count Lymph % (Auto) [place] % (Auto) [place] # Baso # Seg Neutrophils % Seg Neuts % (Manual) Lymphocytes % (Manual) Monocytes % (Manual) Nucleated RBC % Seg Neutrophils # Seg Neutrophils # Man Lymphocytes # (Manual) Monocytes # (Manual) Percent Retic Haptoglobin PT INR Fibrinogen D-Dimer POC ABG pH POC ABG pCO2 POC ABG pO2 Sodium Potassium 3.5 L Chloride Carbon Dioxide 14 L BUN 22 H Creatinine 3.2 H Glucose 446 H POC Glucose 344 H 467 H Lactic Acid Calcium 6.9 L Phosphorus 1.70 L D Magnesium Iron TIBC Transferrin Total Bilirubin Direct Bilirubin AST ALT Alkaline Phosphatase Lactate Dehydrogenase CK-MB (CK-2) Troponin T C-Reactive Protein Total Protein Albumin Triglycerides Cholesterol HDL Cholesterol Vitamin B12 Urine Creatinine Urine Total Protein Heparin-induced Plt Ab Hep Bs Antibody, Quant Crossmatch 12/19/16 12/19/16 12/19/16 16:35 16:35 21:16 WBC 19.3 H RBC 2.37 L Hgb 6.9 L Hct 21.8 L MCV MCHC RDW 16.7 H Plt Count Lymph % (Auto) [place] % (Auto) [place] # Baso # Seg Neutrophils % Seg Neuts % (Manual) Lymphocytes % (Manual) Monocytes % (Manual) Nucleated RBC % Seg Neutrophils # Seg Neutrophils # Man Lymphocytes # (Manual) Monocytes # (Manual) Percent Retic Haptoglobin PT INR Fibrinogen D-Dimer POC ABG pH POC ABG pCO2 POC ABG pO2 Sodium Potassium 3.4 L Chloride Carbon Dioxide 17 L BUN 23 H Creatinine 3.2 H Glucose 427 H POC Glucose 397 H Lactic Acid Calcium 6.9 L Phosphorus 2.40 L D Magnesium Iron TIBC Transferrin Total Bilirubin Direct Bilirubin AST ALT Alkaline Phosphatase Lactate Dehydrogenase CK-MB (CK-2) Troponin T C-Reactive Protein Total Protein Albumin Triglycerides Cholesterol HDL Cholesterol Vitamin B12 Urine Creatinine Urine Total Protein Heparin-induced Plt Ab Hep Bs Antibody, Quant Crossmatch 12/20/16 12/20/16 12/20/16 06:00 06:00 07:55 WBC 17.5 H RBC 2.54 L Hgb 7.3 L Hct 23.5 L MCV MCHC RDW 16.4 H Plt Count Lymph % (Auto) 9.0 L [place] % (Auto) [place] # 1.1 H Baso # Seg Neutrophils % 83.0 H Seg Neuts % (Manual) Lymphocytes % (Manual) Monocytes % (Manual) Nucleated RBC % Seg Neutrophils # 14.5 H Seg Neutrophils # Man Lymphocytes # (Manual) Monocytes # (Manual) Percent Retic Haptoglobin PT INR Fibrinogen D-Dimer POC ABG pH POC ABG pCO2 POC ABG pO2 Sodium 136 L Potassium Chloride 92.4 L Carbon Dioxide 15 L BUN Creatinine 2.6 H Glucose 475 H POC Glucose > 500 H Lactic Acid Calcium Phosphorus Magnesium Iron TIBC Transferrin Total Bilirubin Direct Bilirubin AST ALT Alkaline Phosphatase Lactate Dehydrogenase CK-MB (CK-2) Troponin T C-Reactive Protein Total Protein Albumin Triglycerides Cholesterol HDL Cholesterol Vitamin B12 Urine Creatinine Urine Total Protein Heparin-induced Plt Ab Hep Bs Antibody, Quant Crossmatch 12/20/16 12/20/16 12/20/16 11:21 16:01 22:33 WBC RBC Hgb Hct MCV MCHC RDW Plt Count Lymph % (Auto) [place] % (Auto) [place] # Baso # Seg Neutrophils % Seg Neuts % (Manual) Lymphocytes % (Manual) Monocytes % (Manual) Nucleated RBC % Seg Neutrophils # Seg Neutrophils # Man Lymphocytes # (Manual) Monocytes # (Manual) Percent Retic Haptoglobin PT INR Fibrinogen D-Dimer POC ABG pH POC ABG pCO2 POC ABG pO2 Sodium Potassium Chloride Carbon Dioxide BUN Creatinine Glucose POC Glucose > 500 H 446 H > 500 H Lactic Acid Calcium Phosphorus Magnesium Iron TIBC Transferrin Total Bilirubin Direct Bilirubin AST ALT Alkaline Phosphatase Lactate Dehydrogenase CK-MB (CK-2) Troponin T C-Reactive Protein Total Protein Albumin Triglycerides Cholesterol HDL Cholesterol Vitamin B12 Urine Creatinine Urine Total Protein Heparin-induced Plt Ab Hep Bs Antibody, Quant Crossmatch 12/20/16 12/20/16 12/21/16 22:37 23:00 00:48 WBC RBC Hgb Hct MCV MCHC RDW Plt Count Lymph % (Auto) [place] % (Auto) [place] # Baso # Seg Neutrophils % Seg Neuts % (Manual) Lymphocytes % (Manual) Monocytes % (Manual) Nucleated RBC % Seg Neutrophils # Seg Neutrophils # Man Lymphocytes # (Manual) Monocytes # (Manual) Percent Retic Haptoglobin PT INR Fibrinogen D-Dimer POC ABG pH POC ABG pCO2 POC ABG pO2 Sodium 128 L D Potassium Chloride 83.2 L Carbon Dioxide 11 L BUN 32 H Creatinine 3.5 H Glucose 822 H* POC Glucose > 500 H > 500 H Lactic Acid Calcium 8.2 L Phosphorus Magnesium Iron TIBC Transferrin Total Bilirubin Direct Bilirubin AST ALT Alkaline Phosphatase Lactate Dehydrogenase CK-MB (CK-2) Troponin T C-Reactive Protein Total Protein Albumin Triglycerides Cholesterol HDL Cholesterol Vitamin B12 Urine Creatinine Urine Total Protein Heparin-induced Plt Ab Hep Bs Antibody, Quant Crossmatch 12/21/16 12/21/16 12/21/16 03:17 05:00 05:00 WBC 15.7 H RBC 2.32 L Hgb 6.8 L Hct 20.6 L MCV MCHC RDW 16.3 H Plt Count Lymph % (Auto) 11.5 L [place] % (Auto) 7.4 H [place] # 1.2 H Baso # Seg Neutrophils % 78.7 H Seg Neuts % (Manual) Lymphocytes % (Manual) Monocytes % (Manual) Nucleated RBC % Seg Neutrophils # 12.4 H Seg Neutrophils # Man Lymphocytes # (Manual) Monocytes # (Manual) Percent Retic Haptoglobin PT INR Fibrinogen D-Dimer POC ABG pH POC ABG pCO2 POC ABG pO2 Sodium Potassium Chloride 95.3 L Carbon Dioxide 20 L D BUN 32 H Creatinine 3.7 H Glucose 243 H POC Glucose 428 H Lactic Acid Calcium 8.1 L Phosphorus Magnesium Iron TIBC 193.20 L Transferrin 138 L Total Bilirubin Direct Bilirubin AST ALT Alkaline Phosphatase Lactate Dehydrogenase CK-MB (CK-2) Troponin T C-Reactive Protein Total Protein Albumin Triglycerides Cholesterol HDL Cholesterol Vitamin B12 Urine Creatinine Urine Total Protein Heparin-induced Plt Ab Hep Bs Antibody, Quant Crossmatch 12/21/16 12/21/16 12/21/16 05:40 06:49 08:20 WBC RBC Hgb Hct MCV MCHC RDW Plt Count Lymph % (Auto) [place] % (Auto) [place] # Baso # Seg Neutrophils % Seg Neuts % (Manual) Lymphocytes % (Manual) Monocytes % (Manual) Nucleated RBC % Seg Neutrophils # Seg Neutrophils # Man Lymphocytes # (Manual) Monocytes # (Manual) Percent Retic Haptoglobin PT INR Fibrinogen D-Dimer POC ABG pH POC ABG pCO2 POC ABG pO2 Sodium Potassium Chloride Carbon Dioxide BUN Creatinine Glucose POC Glucose 271 H 236 H 222 H Lactic Acid Calcium Phosphorus Magnesium Iron TIBC Transferrin Total Bilirubin Direct Bilirubin AST ALT Alkaline Phosphatase Lactate Dehydrogenase CK-MB (CK-2) Troponin T C-Reactive Protein Total Protein Albumin Triglycerides Cholesterol HDL Cholesterol Vitamin B12 Urine Creatinine Urine Total Protein Heparin-induced Plt Ab Hep Bs Antibody, Quant Crossmatch 12/21/16 12/21/16 12/21/16 16:28 18:26 21:10 WBC RBC Hgb Hct MCV MCHC RDW Plt Count Lymph % (Auto) [place] % (Auto) [place] # Baso # Seg Neutrophils % Seg Neuts % (Manual) Lymphocytes % (Manual) Monocytes % (Manual) Nucleated RBC % Seg Neutrophils # Seg Neutrophils # Man Lymphocytes # (Manual) Monocytes # (Manual) Percent Retic Haptoglobin PT INR Fibrinogen D-Dimer POC ABG pH POC ABG pCO2 POC ABG pO2 Sodium Potassium Chloride Carbon Dioxide BUN Creatinine Glucose POC Glucose < 40 L 62 L 255 H Lactic Acid Calcium Phosphorus Magnesium Iron TIBC Transferrin Total Bilirubin Direct Bilirubin AST ALT Alkaline Phosphatase Lactate Dehydrogenase CK-MB (CK-2) Troponin T C-Reactive Protein Total Protein Albumin Triglycerides Cholesterol HDL Cholesterol Vitamin B12 Urine Creatinine Urine Total Protein Heparin-induced Plt Ab Hep Bs Antibody, Quant Crossmatch 12/22/16 12/22/16 12/22/16 03:38 06:45 06:45 WBC 17.4 H RBC 2.26 L Hgb 6.6 L Hct 20.5 L MCV MCHC RDW 15.7 H Plt Count Lymph % (Auto) 8.1 L [place] % (Auto) [place] # 0.9 H Baso # 0.2 H Seg Neutrophils % 84.3 H Seg Neuts % (Manual) Lymphocytes % (Manual) Monocytes % (Manual) Nucleated RBC % Seg Neutrophils # 14.6 H Seg Neutrophils # Man Lymphocytes # (Manual) Monocytes # (Manual) Percent Retic Haptoglobin PT INR Fibrinogen D-Dimer POC ABG pH POC ABG pCO2 POC ABG pO2 Sodium Potassium 3.3 L Chloride 95.5 L Carbon Dioxide 20 L BUN Creatinine 2.5 H Glucose 308 H POC Glucose 430 H Lactic Acid Calcium 8.2 L Phosphorus Magnesium Iron TIBC Transferrin Total Bilirubin Direct Bilirubin AST ALT Alkaline Phosphatase Lactate Dehydrogenase CK-MB (CK-2) Troponin T C-Reactive Protein Total Protein Albumin Triglycerides Cholesterol HDL Cholesterol Vitamin B12 Urine Creatinine Urine Total Protein Heparin-induced Plt Ab Hep Bs Antibody, Quant Crossmatch 12/22/16 12/22/16 12/22/16 08:31 12:50 15:46 WBC RBC Hgb Hct MCV MCHC RDW Plt Count Lymph % (Auto) [place] % (Auto) [place] # Baso # Seg Neutrophils % Seg Neuts % (Manual) Lymphocytes % (Manual) Monocytes % (Manual) Nucleated RBC % Seg Neutrophils # Seg Neutrophils # Man Lymphocytes # (Manual) Monocytes # (Manual) Percent Retic Haptoglobin PT INR Fibrinogen D-Dimer POC ABG pH POC ABG pCO2 POC ABG pO2 Sodium Potassium Chloride Carbon Dioxide BUN Creatinine Glucose POC Glucose 306 H 391 H Lactic Acid Calcium Phosphorus Magnesium Iron TIBC Transferrin Total Bilirubin Direct Bilirubin AST ALT Alkaline Phosphatase Lactate Dehydrogenase CK-MB (CK-2) Troponin T C-Reactive Protein Total Protein Albumin Triglycerides Cholesterol HDL Cholesterol Vitamin B12 Urine Creatinine Urine Total Protein Heparin-induced Plt Ab Hep Bs Antibody, Quant Crossmatch See Detail 12/22/16 12/22/16 12/23/16 17:13 21:45 06:42 WBC 17.9 H RBC 2.75 L Hgb 8.1 L Hct 24.8 L MCV MCHC RDW 17.1 H Plt Count Lymph % (Auto) [place] % (Auto) [place] # Baso # Seg Neutrophils % Seg Neuts % (Manual) Lymphocytes % (Manual) Monocytes % (Manual) Nucleated RBC % Seg Neutrophils # Seg Neutrophils # Man Lymphocytes # (Manual) Monocytes # (Manual) Percent Retic Haptoglobin PT INR Fibrinogen D-Dimer POC ABG pH POC ABG pCO2 POC ABG pO2 Sodium Potassium Chloride Carbon Dioxide BUN Creatinine Glucose POC Glucose > 500 H 449 H Lactic Acid Calcium Phosphorus Magnesium Iron TIBC Transferrin Total Bilirubin Direct Bilirubin AST ALT Alkaline Phosphatase Lactate Dehydrogenase CK-MB (CK-2) Troponin T C-Reactive Protein Total Protein Albumin Triglycerides Cholesterol HDL Cholesterol Vitamin B12 Urine Creatinine Urine Total Protein Heparin-induced Plt Ab Hep Bs Antibody, Quant Crossmatch 12/23/16 12/23/16 12/23/16 06:42 07:46 11:33 WBC RBC Hgb Hct MCV MCHC RDW Plt Count Lymph % (Auto) [place] % (Auto) [place] # Baso # Seg Neutrophils % Seg Neuts % (Manual) Lymphocytes % (Manual) Monocytes % (Manual) Nucleated RBC % Seg Neutrophils # Seg Neutrophils # Man Lymphocytes # (Manual) Monocytes # (Manual) Percent Retic Haptoglobin PT INR Fibrinogen D-Dimer POC ABG pH POC ABG pCO2 POC ABG pO2 Sodium Potassium 3.5 L Chloride 94.7 L Carbon Dioxide 19 L BUN 22 H Creatinine 2.9 H Glucose 401 H POC Glucose 449 H 298 H Lactic Acid Calcium 8.3 L Phosphorus Magnesium Iron TIBC Transferrin Total Bilirubin Direct Bilirubin AST ALT Alkaline Phosphatase Lactate Dehydrogenase CK-MB (CK-2) Troponin T C-Reactive Protein Total Protein Albumin Triglycerides Cholesterol HDL Cholesterol Vitamin B12 Urine Creatinine Urine Total Protein Heparin-induced Plt Ab Hep Bs Antibody, Quant Crossmatch 12/23/16 12/23/16 12/24/16 18:24 21:30 00:00 WBC RBC Hgb Hct MCV MCHC RDW Plt Count Lymph % (Auto) [place] % (Auto) [place] # Baso # Seg Neutrophils % Seg Neuts % (Manual) Lymphocytes % (Manual) Monocytes % (Manual) Nucleated RBC % Seg Neutrophils # Seg Neutrophils # Man Lymphocytes # (Manual) Monocytes # (Manual) Percent Retic Haptoglobin PT INR Fibrinogen D-Dimer POC ABG pH POC ABG pCO2 POC ABG pO2 Sodium Potassium Chloride Carbon Dioxide BUN Creatinine Glucose POC Glucose 177 H 455 H Lactic Acid Calcium Phosphorus Magnesium Iron TIBC Transferrin Total Bilirubin Direct Bilirubin AST ALT Alkaline Phosphatase Lactate Dehydrogenase CK-MB (CK-2) Troponin T C-Reactive Protein Total Protein Albumin Triglycerides Cholesterol HDL Cholesterol Vitamin B12 Urine Creatinine 239.9 H Urine Total Protein Heparin-induced Plt Ab Hep Bs Antibody, Quant Crossmatch 12/24/16 12/24/16 12/24/16 05:00 16:11 18:55 WBC RBC Hgb Hct MCV MCHC RDW Plt Count Lymph % (Auto) [place] % (Auto) [place] # Baso # Seg Neutrophils % Seg Neuts % (Manual) Lymphocytes % (Manual) Monocytes % (Manual) Nucleated RBC % Seg Neutrophils # Seg Neutrophils # Man Lymphocytes # (Manual) Monocytes # (Manual) Percent Retic Haptoglobin PT INR Fibrinogen D-Dimer POC ABG pH POC ABG pCO2 POC ABG pO2 Sodium Potassium 3.1 L Chloride 95.8 L Carbon Dioxide BUN Creatinine 1.8 H Glucose 106 H POC Glucose 175 H 148 H Lactic Acid Calcium Phosphorus Magnesium Iron TIBC Transferrin Total Bilirubin Direct Bilirubin AST ALT Alkaline Phosphatase Lactate Dehydrogenase CK-MB (CK-2) Troponin T C-Reactive Protein Total Protein Albumin Triglycerides Cholesterol HDL Cholesterol Vitamin B12 Urine Creatinine Urine Total Protein Heparin-induced Plt Ab Hep Bs Antibody, Quant Crossmatch 07/20/17 07/20/17 07/21/17 20:41 22:21 05:03 WBC RBC Hgb Hct MCV MCHC RDW Plt Count Lymph % (Auto) [place] % (Auto) [place] # Baso # Seg Neutrophils % Seg Neuts % (Manual) Lymphocytes % (Manual) Monocytes % (Manual) Nucleated RBC % Seg Neutrophils # Seg Neutrophils # Man Lymphocytes # (Manual) Monocytes # (Manual) Percent Retic Haptoglobin PT INR Fibrinogen D-Dimer POC ABG pH POC ABG pCO2 POC ABG pO2 Sodium Potassium 2.9 L* Chloride Carbon Dioxide BUN Creatinine 2.3 H Glucose 142 H POC Glucose 44 L 111 H Lactic Acid Calcium 8.0 L Phosphorus Magnesium Iron TIBC Transferrin Total Bilirubin Direct Bilirubin AST ALT Alkaline Phosphatase Lactate Dehydrogenase CK-MB (CK-2) Troponin T C-Reactive Protein Total Protein Albumin Triglycerides Cholesterol HDL Cholesterol Vitamin B12 Urine Creatinine Urine Total Protein Heparin-induced Plt Ab Hep Bs Antibody, Quant Crossmatch 12/25/16 12/25/16 12/25/16 07:30 12:08 16:43 WBC RBC Hgb Hct MCV MCHC RDW Plt Count Lymph % (Auto) [place] % (Auto) [place] # Baso # Seg Neutrophils % Seg Neuts % (Manual) Lymphocytes % (Manual) Monocytes % (Manual) Nucleated RBC % Seg Neutrophils # Seg Neutrophils # Man Lymphocytes # (Manual) Monocytes # (Manual) Percent Retic Haptoglobin PT INR Fibrinogen D-Dimer POC ABG pH POC ABG pCO2 POC ABG pO2 Sodium Potassium Chloride Carbon Dioxide BUN Creatinine Glucose POC Glucose 127 H 154 H 235 H Lactic Acid Calcium Phosphorus Magnesium Iron TIBC Transferrin Total Bilirubin Direct Bilirubin AST ALT Alkaline Phosphatase Lactate Dehydrogenase CK-MB (CK-2) Troponin T C-Reactive Protein Total Protein Albumin Triglycerides Cholesterol HDL Cholesterol Vitamin B12 Urine Creatinine Urine Total Protein Heparin-induced Plt Ab Hep Bs Antibody, Quant Crossmatch 12/25/16 12/26/16 12/26/16 23:30 07:49 10:21 WBC RBC Hgb Hct MCV MCHC RDW Plt Count Lymph % (Auto) [place] % (Auto) [place] # Baso # Seg Neutrophils % Seg Neuts % (Manual) Lymphocytes % (Manual) Monocytes % (Manual) Nucleated RBC % Seg Neutrophils # Seg Neutrophils # Man Lymphocytes # (Manual) Monocytes # (Manual) Percent Retic Haptoglobin PT INR Fibrinogen D-Dimer POC ABG pH POC ABG pCO2 POC ABG pO2 Sodium Potassium Chloride Carbon Dioxide BUN Creatinine Glucose POC Glucose 54 L 53 L 154 H Lactic Acid Calcium Phosphorus Magnesium Iron TIBC Transferrin Total Bilirubin Direct Bilirubin AST ALT Alkaline Phosphatase Lactate Dehydrogenase CK-MB (CK-2) Troponin T C-Reactive Protein Total Protein Albumin Triglycerides Cholesterol HDL Cholesterol Vitamin B12 Urine Creatinine Urine Total Protein Heparin-induced Plt Ab Hep Bs Antibody, Quant Crossmatch 12/26/16 12/26/16 12/26/16 12:19 16:14 Unknown WBC RBC Hgb Hct MCV MCHC RDW Plt Count Lymph % (Auto) [place] % (Auto) [place] # Baso # Seg Neutrophils % Seg Neuts % (Manual) Lymphocytes % (Manual) Monocytes % (Manual) Nucleated RBC % Seg Neutrophils # Seg Neutrophils # Man Lymphocytes # (Manual) Monocytes # (Manual) Percent Retic Haptoglobin PT INR Fibrinogen D-Dimer POC ABG pH POC ABG pCO2 POC ABG pO2 Sodium Potassium Chloride Carbon Dioxide BUN Creatinine 2.3 H Glucose POC Glucose 310 H Lactic Acid Calcium 8.3 L Phosphorus Magnesium 1.50 L Iron TIBC Transferrin Total Bilirubin Direct Bilirubin AST ALT Alkaline Phosphatase Lactate Dehydrogenase CK-MB (CK-2) Troponin T C-Reactive Protein Total Protein Albumin Triglycerides Cholesterol HDL Cholesterol Vitamin B12 Urine Creatinine Urine Total Protein Heparin-induced Plt Ab Hep Bs Antibody, Quant Crossmatch 12/26/16 12/26/16 12/27/16 Unknown Unknown 04:47 WBC RBC 2.95 L Hgb 9.0 L Hct 26.5 L MCV MCHC RDW 16.6 H Plt Count Lymph % (Auto) [place] % (Auto) [place] # Baso # Seg Neutrophils % Seg Neuts % (Manual) Lymphocytes % (Manual) Monocytes % (Manual) Nucleated RBC % Seg Neutrophils # Seg Neutrophils # Man Lymphocytes # (Manual) Monocytes # (Manual) Percent Retic Haptoglobin PT INR Fibrinogen D-Dimer POC ABG pH POC ABG pCO2 POC ABG pO2 Sodium Potassium Chloride Carbon Dioxide BUN Creatinine 2.3 H Glucose 157 H POC Glucose 406 H Lactic Acid Calcium 7.7 L Phosphorus Magnesium Iron TIBC Transferrin Total Bilirubin Direct Bilirubin AST ALT Alkaline Phosphatase Lactate Dehydrogenase CK-MB (CK-2) Troponin T C-Reactive Protein Total Protein Albumin Triglycerides Cholesterol HDL Cholesterol Vitamin B12 Urine Creatinine Urine Total Protein Heparin-induced Plt Ab Hep Bs Antibody, Quant Crossmatch 12/27/16 12/27/16 12/27/16 07:54 11:09 15:40 WBC RBC Hgb Hct MCV MCHC RDW Plt Count Lymph % (Auto) [place] % (Auto) [place] # Baso # Seg Neutrophils % Seg Neuts % (Manual) Lymphocytes % (Manual) Monocytes % (Manual) Nucleated RBC % Seg Neutrophils # Seg Neutrophils # Man Lymphocytes # (Manual) Monocytes # (Manual) Percent Retic Haptoglobin PT INR Fibrinogen D-Dimer POC ABG pH POC ABG pCO2 POC ABG pO2 Sodium Potassium Chloride Carbon Dioxide BUN Creatinine Glucose POC Glucose 500 H 301 H 208 H Lactic Acid Calcium Phosphorus Magnesium Iron TIBC Transferrin Total Bilirubin Direct Bilirubin AST ALT Alkaline Phosphatase Lactate Dehydrogenase CK-MB (CK-2) Troponin T C-Reactive Protein Total Protein Albumin Triglycerides Cholesterol HDL Cholesterol Vitamin B12 Urine Creatinine Urine Total Protein Heparin-induced Plt Ab Hep Bs Antibody, Quant Crossmatch 12/27/16 12/28/16 12/28/16 21:00 06:17 07:30 WBC RBC Hgb Hct MCV MCHC RDW Plt Count Lymph % (Auto) [place] % (Auto) [place] # Baso # Seg Neutrophils % Seg Neuts % (Manual) Lymphocytes % (Manual) Monocytes % (Manual) Nucleated RBC % Seg Neutrophils # Seg Neutrophils # Man Lymphocytes # (Manual) Monocytes # (Manual) Percent Retic Haptoglobin PT INR Fibrinogen D-Dimer POC ABG pH POC ABG pCO2 POC ABG pO2 Sodium Potassium 5.1 H D Chloride Carbon Dioxide 19 L BUN 24 H Creatinine 2.0 H Glucose 394 H POC Glucose 347 H 409 H Lactic Acid Calcium 7.7 L Phosphorus Magnesium Iron TIBC Transferrin Total Bilirubin Direct Bilirubin AST ALT Alkaline Phosphatase Lactate Dehydrogenase CK-MB (CK-2) Troponin T C-Reactive Protein Total Protein Albumin Triglycerides Cholesterol HDL Cholesterol Vitamin B12 Urine Creatinine Urine Total Protein Heparin-induced Plt Ab Hep Bs Antibody, Quant Crossmatch 12/28/16 12/28/16 12/28/16 11:33 16:38 20:59 WBC RBC Hgb Hct MCV MCHC RDW Plt Count Lymph % (Auto) [place] % (Auto) [place] # Baso # Seg Neutrophils % Seg Neuts % (Manual) Lymphocytes % (Manual) Monocytes % (Manual) Nucleated RBC % Seg Neutrophils # Seg Neutrophils # Man Lymphocytes # (Manual) Monocytes # (Manual) Percent Retic Haptoglobin PT INR Fibrinogen D-Dimer POC ABG pH POC ABG pCO2 POC ABG pO2 Sodium Potassium Chloride Carbon Dioxide BUN Creatinine Glucose POC Glucose 260 H 240 H 45 L Lactic Acid Calcium Phosphorus Magnesium Iron TIBC Transferrin Total Bilirubin Direct Bilirubin AST ALT Alkaline Phosphatase Lactate Dehydrogenase CK-MB (CK-2) Troponin T C-Reactive Protein Total Protein Albumin Triglycerides Cholesterol HDL Cholesterol Vitamin B12 Urine Creatinine Urine Total Protein Heparin-induced Plt Ab Hep Bs Antibody, Quant Crossmatch 12/28/16 12/29/16 12/29/16 22:14 04:45 05:52 WBC RBC Hgb Hct MCV MCHC RDW Plt Count Lymph % (Auto) [place] % (Auto) [place] # Baso # Seg Neutrophils % Seg Neuts % (Manual) Lymphocytes % (Manual) Monocytes % (Manual) Nucleated RBC % Seg Neutrophils # Seg Neutrophils # Man Lymphocytes # (Manual) Monocytes # (Manual) Percent Retic Haptoglobin PT INR Fibrinogen D-Dimer POC ABG pH POC ABG pCO2 POC ABG pO2 Sodium Potassium Chloride Carbon Dioxide BUN 23 H Creatinine 2.0 H Glucose 166 H POC Glucose 56 L 43 L Lactic Acid Calcium 7.7 L Phosphorus Magnesium Iron TIBC Transferrin Total Bilirubin Direct Bilirubin AST ALT Alkaline Phosphatase Lactate Dehydrogenase CK-MB (CK-2) Troponin T C-Reactive Protein Total Protein Albumin Triglycerides Cholesterol HDL Cholesterol Vitamin B12 Urine Creatinine Urine Total Protein Heparin-induced Plt Ab Hep Bs Antibody, Quant Crossmatch 12/29/16 12/29/16 12/30/16 06:52 11:52 05:00 WBC RBC Hgb Hct MCV MCHC RDW Plt Count Lymph % (Auto) [place] % (Auto) [place] # Baso # Seg Neutrophils % Seg Neuts % (Manual) Lymphocytes % (Manual) Monocytes % (Manual) Nucleated RBC % Seg Neutrophils # Seg Neutrophils # Man Lymphocytes # (Manual) Monocytes # (Manual) Percent Retic Haptoglobin PT INR Fibrinogen D-Dimer POC ABG pH POC ABG pCO2 POC ABG pO2 Sodium Potassium Chloride Carbon Dioxide BUN 20 H Creatinine 2.0 H Glucose 150 H POC Glucose 115 H 143 H Lactic Acid Calcium 7.6 L Phosphorus Magnesium Iron TIBC Transferrin Total Bilirubin Direct Bilirubin AST ALT Alkaline Phosphatase Lactate Dehydrogenase CK-MB (CK-2) Troponin T C-Reactive Protein Total Protein Albumin Triglycerides Cholesterol HDL Cholesterol Vitamin B12 Urine Creatinine Urine Total Protein Heparin-induced Plt Ab Hep Bs Antibody, Quant Crossmatch 12/30/16 12/30/16 12/30/16 07:11 11:36 15:17 WBC RBC Hgb Hct MCV MCHC RDW Plt Count Lymph % (Auto) [place] % (Auto) [place] # Baso # Seg Neutrophils % Seg Neuts % (Manual) Lymphocytes % (Manual) Monocytes % (Manual) Nucleated RBC % Seg Neutrophils # Seg Neutrophils # Man Lymphocytes # (Manual) Monocytes # (Manual) Percent Retic Haptoglobin PT INR Fibrinogen D-Dimer POC ABG pH POC ABG pCO2 POC ABG pO2 Sodium Potassium Chloride Carbon Dioxide BUN Creatinine Glucose POC Glucose 162 H 137 H 123 H Lactic Acid Calcium Phosphorus Magnesium Iron TIBC Transferrin Total Bilirubin Direct Bilirubin AST ALT Alkaline Phosphatase Lactate Dehydrogenase CK-MB (CK-2) Troponin T C-Reactive Protein Total Protein Albumin Triglycerides Cholesterol HDL Cholesterol Vitamin B12 Urine Creatinine Urine Total Protein Heparin-induced Plt Ab Hep Bs Antibody, Quant Crossmatch 12/30/16 12/30/16 12/30/16 21:11 22:13 23:35 WBC RBC Hgb Hct MCV MCHC RDW Plt Count Lymph % (Auto) [place] % (Auto) [place] # Baso # Seg Neutrophils % Seg Neuts % (Manual) Lymphocytes % (Manual) Monocytes % (Manual) Nucleated RBC % Seg Neutrophils # Seg Neutrophils # Man Lymphocytes # (Manual) Monocytes # (Manual) Percent Retic Haptoglobin PT INR Fibrinogen D-Dimer POC ABG pH POC ABG pCO2 POC ABG pO2 Sodium Potassium Chloride Carbon Dioxide BUN Creatinine Glucose POC Glucose < 40 L 40 L 126 H Lactic Acid Calcium Phosphorus Magnesium Iron TIBC Transferrin Total Bilirubin Direct Bilirubin AST ALT Alkaline Phosphatase Lactate Dehydrogenase CK-MB (CK-2) Troponin T C-Reactive Protein Total Protein Albumin Triglycerides Cholesterol HDL Cholesterol Vitamin B12 Urine Creatinine Urine Total Protein Heparin-induced Plt Ab Hep Bs Antibody, Quant Crossmatch 12/31/16 12/31/16 12/31/16 06:38 07:51 08:28 WBC RBC Hgb Hct MCV MCHC RDW Plt Count Lymph % (Auto) [place] % (Auto) [place] # Baso # Seg Neutrophils % Seg Neuts % (Manual) Lymphocytes % (Manual) Monocytes % (Manual) Nucleated RBC % Seg Neutrophils # Seg Neutrophils # Man Lymphocytes # (Manual) Monocytes # (Manual) Percent Retic Haptoglobin PT INR Fibrinogen D-Dimer POC ABG pH POC ABG pCO2 POC ABG pO2 Sodium Potassium Chloride Carbon Dioxide BUN 20 H Creatinine 1.6 H Glucose 28 L* POC Glucose 44 L 155 H Lactic Acid Calcium 7.4 L Phosphorus Magnesium Iron TIBC Transferrin Total Bilirubin Direct Bilirubin AST ALT Alkaline Phosphatase Lactate Dehydrogenase CK-MB (CK-2) Troponin T C-Reactive Protein Total Protein Albumin Triglycerides Cholesterol HDL Cholesterol Vitamin B12 Urine Creatinine Urine Total Protein Heparin-induced Plt Ab Hep Bs Antibody, Quant Crossmatch 12/31/16 12/31/16 12/31/16 11:27 12:59 16:10 WBC RBC Hgb Hct MCV MCHC RDW Plt Count Lymph % (Auto) [place] % (Auto) [place] # Baso # Seg Neutrophils % Seg Neuts % (Manual) Lymphocytes % (Manual) Monocytes % (Manual) Nucleated RBC % Seg Neutrophils # Seg Neutrophils # Man Lymphocytes # (Manual) Monocytes # (Manual) Percent Retic Haptoglobin PT INR Fibrinogen D-Dimer POC ABG pH POC ABG pCO2 POC ABG pO2 Sodium Potassium Chloride Carbon Dioxide BUN Creatinine Glucose POC Glucose 113 H 113 H 216 H Lactic Acid Calcium Phosphorus Magnesium Iron TIBC Transferrin Total Bilirubin Direct Bilirubin AST ALT Alkaline Phosphatase Lactate Dehydrogenase CK-MB (CK-2) Troponin T C-Reactive Protein Total Protein Albumin Triglycerides Cholesterol HDL Cholesterol Vitamin B12 Urine Creatinine Urine Total Protein Heparin-induced Plt Ab Hep Bs Antibody, Quant Crossmatch 12/31/16 01/01/17 01/01/17 21:22 01:11 01:46 WBC RBC Hgb Hct MCV MCHC RDW Plt Count Lymph % (Auto) [place] % (Auto) [place] # Baso # Seg Neutrophils % Seg Neuts % (Manual) Lymphocytes % (Manual) Monocytes % (Manual) Nucleated RBC % Seg Neutrophils # Seg Neutrophils # Man Lymphocytes # (Manual) Monocytes # (Manual) Percent Retic Haptoglobin PT INR Fibrinogen D-Dimer POC ABG pH POC ABG pCO2 POC ABG pO2 Sodium Potassium Chloride Carbon Dioxide BUN Creatinine Glucose POC Glucose 410 H 129 H Lactic Acid Calcium Phosphorus Magnesium 1.40 L Iron TIBC Transferrin Total Bilirubin Direct Bilirubin AST ALT Alkaline Phosphatase Lactate Dehydrogenase CK-MB (CK-2) Troponin T C-Reactive Protein Total Protein Albumin Triglycerides Cholesterol HDL Cholesterol Vitamin B12 Urine Creatinine Urine Total Protein Heparin-induced Plt Ab Hep Bs Antibody, Quant Crossmatch 01/01/17 01/01/17 01/01/17 05:00 08:07 11:56 WBC RBC Hgb Hct MCV MCHC RDW Plt Count Lymph % (Auto) [place] % (Auto) [place] # Baso # Seg Neutrophils % Seg Neuts % (Manual) Lymphocytes % (Manual) Monocytes % (Manual) Nucleated RBC % Seg Neutrophils # Seg Neutrophils # Man Lymphocytes # (Manual) Monocytes # (Manual) Percent Retic Haptoglobin PT INR Fibrinogen D-Dimer POC ABG pH POC ABG pCO2 POC ABG pO2 Sodium Potassium 5.2 H D Chloride Carbon Dioxide BUN 22 H Creatinine 1.6 H Glucose 167 H POC Glucose 431 H 216 H Lactic Acid Calcium 7.8 L Phosphorus Magnesium Iron TIBC Transferrin Total Bilirubin Direct Bilirubin AST ALT Alkaline Phosphatase Lactate Dehydrogenase CK-MB (CK-2) Troponin T C-Reactive Protein Total Protein Albumin Triglycerides Cholesterol HDL Cholesterol Vitamin B12 Urine Creatinine Urine Total Protein Heparin-induced Plt Ab Hep Bs Antibody, Quant Crossmatch 01/01/17 01/01/17 01/02/17 16:02 20:53 05:10 WBC RBC Hgb Hct MCV MCHC RDW Plt Count Lymph % (Auto) [place] % (Auto) [place] # Baso # Seg Neutrophils % Seg Neuts % (Manual) Lymphocytes % (Manual) Monocytes % (Manual) Nucleated RBC % Seg Neutrophils # Seg Neutrophils # Man Lymphocytes # (Manual) Monocytes # (Manual) Percent Retic Haptoglobin PT INR Fibrinogen D-Dimer POC ABG pH POC ABG pCO2 POC ABG pO2 Sodium Potassium Chloride Carbon Dioxide BUN 21 H Creatinine 1.5 H Glucose 313 H POC Glucose 491 H 114 H Lactic Acid Calcium 8.3 L Phosphorus Magnesium Iron TIBC Transferrin Total Bilirubin Direct Bilirubin AST ALT Alkaline Phosphatase Lactate Dehydrogenase CK-MB (CK-2) Troponin T C-Reactive Protein Total Protein Albumin Triglycerides Cholesterol HDL Cholesterol Vitamin B12 Urine Creatinine Urine Total Protein Heparin-induced Plt Ab Hep Bs Antibody, Quant Crossmatch 01/02/17 01/02/17 01/02/17 05:10 06:03 09:04 WBC 12.7 H RBC 2.77 L Hgb 8.0 L Hct 25.5 L MCV MCHC RDW 16.6 H Plt Count Lymph % (Auto) [place] % (Auto) [place] # Baso # Seg Neutrophils % Seg Neuts % (Manual) Lymphocytes % (Manual) Monocytes % (Manual) Nucleated RBC % Seg Neutrophils # Seg Neutrophils # Man Lymphocytes # (Manual) Monocytes # (Manual) Percent Retic Haptoglobin PT INR Fibrinogen D-Dimer POC ABG pH POC ABG pCO2 POC ABG pO2 Sodium Potassium Chloride Carbon Dioxide BUN Creatinine Glucose POC Glucose 304 H 52 L Lactic Acid Calcium Phosphorus Magnesium Iron TIBC Transferrin Total Bilirubin Direct Bilirubin AST ALT Alkaline Phosphatase Lactate Dehydrogenase CK-MB (CK-2) Troponin T C-Reactive Protein Total Protein Albumin Triglycerides Cholesterol HDL Cholesterol Vitamin B12 Urine Creatinine Urine Total Protein Heparin-induced Plt Ab Hep Bs Antibody, Quant Crossmatch 01/02/17 01/02/17 01/02/17 12:06 16:35 22:55 WBC RBC Hgb Hct MCV MCHC RDW Plt Count Lymph % (Auto) [place] % (Auto) [place] # Baso # Seg Neutrophils % Seg Neuts % (Manual) Lymphocytes % (Manual) Monocytes % (Manual) Nucleated RBC % Seg Neutrophils # Seg Neutrophils # Man Lymphocytes # (Manual) Monocytes # (Manual) Percent Retic Haptoglobin PT INR Fibrinogen D-Dimer POC ABG pH POC ABG pCO2 POC ABG pO2 Sodium Potassium Chloride Carbon Dioxide BUN Creatinine Glucose POC Glucose 157 H 286 H 324 H Lactic Acid Calcium Phosphorus Magnesium Iron TIBC Transferrin Total Bilirubin Direct Bilirubin AST ALT Alkaline Phosphatase Lactate Dehydrogenase CK-MB (CK-2) Troponin T C-Reactive Protein Total Protein Albumin Triglycerides Cholesterol HDL Cholesterol Vitamin B12 Urine Creatinine Urine Total Protein Heparin-induced Plt Ab Hep Bs Antibody, Quant Crossmatch 01/03/17 01/03/17 01/03/17 07:20 07:20 08:45 WBC RBC 2.39 L Hgb 6.8 L Hct 21.5 L MCV MCHC RDW 16.7 H Plt Count Lymph % (Auto) [place] % (Auto) [place] # Baso # Seg Neutrophils % Seg Neuts % (Manual) Lymphocytes % (Manual) Monocytes % (Manual) Nucleated RBC % Seg Neutrophils # Seg Neutrophils # Man Lymphocytes # (Manual) Monocytes # (Manual) Percent Retic Haptoglobin PT INR Fibrinogen D-Dimer POC ABG pH POC ABG pCO2 POC ABG pO2 Sodium Potassium Chloride 110.5 H Carbon Dioxide BUN Creatinine 1.5 H Glucose 327 H POC Glucose 428 H Lactic Acid Calcium 7.3 L Phosphorus Magnesium Iron TIBC Transferrin Total Bilirubin Direct Bilirubin AST ALT Alkaline Phosphatase Lactate Dehydrogenase CK-MB (CK-2) Troponin T C-Reactive Protein Total Protein Albumin Triglycerides Cholesterol HDL Cholesterol Vitamin B12 Urine Creatinine Urine Total Protein Heparin-induced Plt Ab Hep Bs Antibody, Quant Crossmatch 01/03/17 01/03/17 01/03/17 11:18 12:30 16:08 WBC RBC Hgb Hct MCV MCHC RDW Plt Count Lymph % (Auto) [place] % (Auto) [place] # Baso # Seg Neutrophils % Seg Neuts % (Manual) Lymphocytes % (Manual) Monocytes % (Manual) Nucleated RBC % Seg Neutrophils # Seg Neutrophils # Man Lymphocytes # (Manual) Monocytes # (Manual) Percent Retic Haptoglobin PT INR Fibrinogen D-Dimer POC ABG pH POC ABG pCO2 POC ABG pO2 Sodium Potassium Chloride Carbon Dioxide BUN Creatinine Glucose POC Glucose 195 H 141 H Lactic Acid Calcium Phosphorus Magnesium Iron TIBC Transferrin Total Bilirubin Direct Bilirubin AST ALT Alkaline Phosphatase Lactate Dehydrogenase CK-MB (CK-2) Troponin T C-Reactive Protein Total Protein Albumin Triglycerides Cholesterol HDL Cholesterol Vitamin B12 Urine Creatinine Urine Total Protein Heparin-induced Plt Ab Hep Bs Antibody, Quant Crossmatch See Detail 01/03/17 01/04/17 01/04/17 21:29 06:57 06:57 WBC RBC 2.69 L Hgb 7.8 L Hct 24.0 L MCV MCHC RDW 16.0 H Plt Count Lymph % (Auto) [place] % (Auto) [place] # Baso # Seg Neutrophils % Seg Neuts % (Manual) Lymphocytes % (Manual) Monocytes % (Manual) Nucleated RBC % Seg Neutrophils # Seg Neutrophils # Man Lymphocytes # (Manual) Monocytes # (Manual) Percent Retic Haptoglobin PT INR Fibrinogen D-Dimer POC ABG pH POC ABG pCO2 POC ABG pO2 Sodium Potassium Chloride Carbon Dioxide BUN Creatinine 1.4 H Glucose 59 L POC Glucose 55 L Lactic Acid Calcium 7.5 L Phosphorus Magnesium Iron TIBC Transferrin Total Bilirubin Direct Bilirubin AST ALT Alkaline Phosphatase Lactate Dehydrogenase CK-MB (CK-2) Troponin T C-Reactive Protein Total Protein Albumin Triglycerides Cholesterol HDL Cholesterol Vitamin B12 Urine Creatinine Urine Total Protein Heparin-induced Plt Ab Hep Bs Antibody, Quant Crossmatch 01/04/17 01/04/17 01/04/17 06:57 08:01 12:10 WBC RBC Hgb Hct MCV MCHC RDW Plt Count Lymph % (Auto) [place] % (Auto) [place] # Baso # Seg Neutrophils % Seg Neuts % (Manual) Lymphocytes % (Manual) Monocytes % (Manual) Nucleated RBC % Seg Neutrophils # Seg Neutrophils # Man Lymphocytes # (Manual) Monocytes # (Manual) Percent Retic Haptoglobin PT INR Fibrinogen D-Dimer POC ABG pH POC ABG pCO2 POC ABG pO2 Sodium Potassium Chloride Carbon Dioxide BUN Creatinine Glucose POC Glucose 112 H 244 H Lactic Acid Calcium Phosphorus Magnesium Iron TIBC Transferrin Total Bilirubin Direct Bilirubin AST ALT 6 L Alkaline Phosphatase 161 H Lactate Dehydrogenase CK-MB (CK-2) Troponin T C-Reactive Protein Total Protein 5.6 L Albumin 2.7 L Triglycerides Cholesterol HDL Cholesterol Vitamin B12 Urine Creatinine Urine Total Protein Heparin-induced Plt Ab Hep Bs Antibody, Quant Crossmatch 01/04/17 01/04/17 01/05/17 17:12 21:47 01:01 WBC RBC Hgb Hct MCV MCHC RDW Plt Count Lymph % (Auto) [place] % (Auto) [place] # Baso # Seg Neutrophils % Seg Neuts % (Manual) Lymphocytes % (Manual) Monocytes % (Manual) Nucleated RBC % Seg Neutrophils # Seg Neutrophils # Man Lymphocytes # (Manual) Monocytes # (Manual) Percent Retic Haptoglobin PT INR Fibrinogen D-Dimer POC ABG pH POC ABG pCO2 POC ABG pO2 Sodium Potassium Chloride Carbon Dioxide BUN Creatinine Glucose POC Glucose 388 H 359 H 476 H Lactic Acid Calcium Phosphorus Magnesium Iron TIBC Transferrin Total Bilirubin Direct Bilirubin AST ALT Alkaline Phosphatase Lactate Dehydrogenase CK-MB (CK-2) Troponin T C-Reactive Protein Total Protein Albumin Triglycerides Cholesterol HDL Cholesterol Vitamin B12 Urine Creatinine Urine Total Protein Heparin-induced Plt Ab Hep Bs Antibody, Quant Crossmatch 01/05/17 01/05/17 01/05/17 05:00 05:00 05:22 WBC RBC 3.10 L Hgb 9.1 L Hct 27.9 L MCV MCHC RDW 16.4 H Plt Count Lymph % (Auto) [place] % (Auto) [place] # Baso # Seg Neutrophils % Seg Neuts % (Manual) Lymphocytes % (Manual) Monocytes % (Manual) Nucleated RBC % Seg Neutrophils # Seg Neutrophils # Man Lymphocytes # (Manual) Monocytes # (Manual) Percent Retic Haptoglobin PT INR Fibrinogen D-Dimer POC ABG pH POC ABG pCO2 POC ABG pO2 Sodium 130 L D Potassium 5.8 H D Chloride 93.3 L Carbon Dioxide 18 L BUN 24 H Creatinine 1.7 H Glucose POC Glucose > 500 H Lactic Acid Calcium 7.5 L Phosphorus Magnesium Iron TIBC Transferrin Total Bilirubin Direct Bilirubin AST ALT Alkaline Phosphatase Lactate Dehydrogenase CK-MB (CK-2) Troponin T C-Reactive Protein Total Protein Albumin Triglycerides Cholesterol HDL Cholesterol Vitamin B12 Urine Creatinine Urine Total Protein Heparin-induced Plt Ab Hep Bs Antibody, Quant Crossmatch 01/05/17 01/05/17 01/05/17 06:40 07:36 09:43 WBC RBC Hgb Hct MCV MCHC RDW Plt Count Lymph % (Auto) [place] % (Auto) [place] # Baso # Seg Neutrophils % Seg Neuts % (Manual) Lymphocytes % (Manual) Monocytes % (Manual) Nucleated RBC % Seg Neutrophils # Seg Neutrophils # Man Lymphocytes # (Manual) Monocytes # (Manual) Percent Retic Haptoglobin PT INR Fibrinogen D-Dimer POC ABG pH POC ABG pCO2 POC ABG pO2 Sodium Potassium Chloride Carbon Dioxide BUN Creatinine Glucose 831 H* POC Glucose > 500 H 403 H Lactic Acid Calcium Phosphorus Magnesium Iron TIBC Transferrin Total Bilirubin Direct Bilirubin AST ALT Alkaline Phosphatase Lactate Dehydrogenase CK-MB (CK-2) Troponin T C-Reactive Protein Total Protein Albumin Triglycerides Cholesterol HDL Cholesterol Vitamin B12 Urine Creatinine Urine Total Protein Heparin-induced Plt Ab Hep Bs Antibody, Quant Crossmatch 01/05/17 01/05/17 01/05/17 11:19 16:04 21:14 WBC RBC Hgb Hct MCV MCHC RDW Plt Count Lymph % (Auto) [place] % (Auto) [place] # Baso # Seg Neutrophils % Seg Neuts % (Manual) Lymphocytes % (Manual) Monocytes % (Manual) Nucleated RBC % Seg Neutrophils # Seg Neutrophils # Man Lymphocytes # (Manual) Monocytes # (Manual) Percent Retic Haptoglobin PT INR Fibrinogen D-Dimer POC ABG pH POC ABG pCO2 POC ABG pO2 Sodium Potassium Chloride Carbon Dioxide BUN Creatinine Glucose POC Glucose 293 H 408 H 401 H Lactic Acid Calcium Phosphorus Magnesium Iron TIBC Transferrin Total Bilirubin Direct Bilirubin AST ALT Alkaline Phosphatase Lactate Dehydrogenase CK-MB (CK-2) Troponin T C-Reactive Protein Total Protein Albumin Triglycerides Cholesterol HDL Cholesterol Vitamin B12 Urine Creatinine Urine Total Protein Heparin-induced Plt Ab Hep Bs Antibody, Quant Crossmatch 01/05/17 01/06/17 01/06/17 Unknown 05:58 07:51 WBC RBC Hgb Hct MCV MCHC RDW Plt Count Lymph % (Auto) [place] % (Auto) [place] # Baso # Seg Neutrophils % Seg Neuts % (Manual) Lymphocytes % (Manual) Monocytes % (Manual) Nucleated RBC % Seg Neutrophils # Seg Neutrophils # Man Lymphocytes # (Manual) Monocytes # (Manual) Percent Retic Haptoglobin PT INR Fibrinogen D-Dimer POC ABG pH POC ABG pCO2 POC ABG pO2 Sodium 134 L Potassium Chloride Carbon Dioxide 18 L BUN 30 H Creatinine 1.8 H Glucose 329 H POC Glucose > 500 H 472 H Lactic Acid Calcium 7.4 L Phosphorus Magnesium Iron TIBC Transferrin Total Bilirubin Direct Bilirubin AST ALT Alkaline Phosphatase Lactate Dehydrogenase CK-MB (CK-2) Troponin T C-Reactive Protein Total Protein Albumin Triglycerides Cholesterol HDL Cholesterol Vitamin B12 Urine Creatinine Urine Total Protein Heparin-induced Plt Ab Hep Bs Antibody, Quant Crossmatch 01/06/17 12:03 WBC RBC Hgb Hct MCV MCHC RDW Plt Count Lymph % (Auto) [place] % (Auto) [place] # Baso # Seg Neutrophils % Seg Neuts % (Manual) Lymphocytes % (Manual) Monocytes % (Manual) Nucleated RBC % Seg Neutrophils # Seg Neutrophils # Man Lymphocytes # (Manual) Monocytes # (Manual) Percent Retic Haptoglobin PT INR Fibrinogen D-Dimer POC ABG pH POC ABG pCO2 POC ABG pO2 Sodium Potassium Chloride Carbon Dioxide BUN Creatinine Glucose POC Glucose 258 H Lactic Acid Calcium Phosphorus Magnesium Iron TIBC Transferrin Total Bilirubin Direct Bilirubin AST ALT Alkaline Phosphatase Lactate Dehydrogenase CK-MB (CK-2) Troponin T C-Reactive Protein Total Protein Albumin Triglycerides Cholesterol HDL Cholesterol Vitamin B12 Urine Creatinine Urine Total Protein Heparin-induced Plt Ab Hep Bs Antibody, Quant Crossmatch
--- NOTE | 2017-01-06 14:00 | Progress Note ---
Assessment and Plan Assessment and plan: The patient is a 46-year-old woman with history of insulin-dependent diabetes mellitus, hypertension, recent SAH and dyslipidemia who presented with DKA, AMS and STEMI with V. fib arrest requiring IV amiodarone suppression. she was intubated and subsequently extubated. she was treated with IV insulin drip for documented DKA without ketones documentation but she was acidotic on admission and pressors but subsequently weaned off and transferred to the medical floor. Patient has had multiple admissions in the hospital multiple times and near experience in multiple of the [facility] secondary to Possible aspiration penumonitis. Inital BCX with coagulase negative staff, 1/2 bottles ?contaminate Repeat cultures, no growth. emperic abx was discontinued, Patient proceeded to have bronchoscopy due to persistence of findings on chest x-ray and chest CT. Cultures did grow multiple organisms in the bronchial tissue with gram-negative and gram-positive. Also noted to be resistant organisms in addition. 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 We'll start patient on prednisone 60 mg daily. PFT as outpatient. Discussed with patient extensively about glycemic control patient verbalized understanding Will reconsult ID for recommendation based on Micro data StarT also on Augumentin. Uncontrolled DM -Labile-recent increased due to addition of steroids. Blood glucose adjusted. We'll monitor closely for the next 24 hours. -CONTINUE CARB CONSISTENT DIET -Give A liter bolous. -70/30 changed 18 units bid. Continue sliding scale Monitor but decrease at moderate dose scale due to recurrent hypoglycemia. Hold or decrease dose by 50 % when patient not eating due to Gastroenteritis. Gastroenteritis. Nausea and vomiting. start gentle hydration due to renal function. Acute hypoxic respiratory failure. Resolved. Now extubated, stable right upper lobe opacity. AWAITING PATHOLOGY FROM [facility]. cytology showing no malignant cells, Severe Metabolic acidosis Resolved. Neprhology following Cardiac arrest with PEA arrest-->V. fib/?torsades was shocked twice - Likely from hyperkalemia, currently patient is stable. Was treated with amiodarone -Echo EF 40-45% - No recurrence Acute kidney injury secondary to ATN - Nephrology is following. HD Held ASHELY Cr 2.3 for past 3 days NOW 1.8. NO FURTHER NEED FOR DIALYSIS Hyperkalemia- Give Kayxalate. Malnutrition- Moderate: Nutrition consult DKA: - resolved - On sliding insulin Acute metabolic encephalopathy, resolved Nstemi Type 2- Likely from Shock. Moderate protein calorie malnutrition Helper Driver input noted Thrombocytopenia - Resolved Acute on chronic anemia of chronic disease, s/p total 4 units PRBC this admission - STABLE TODAY, will monitor Depression - Psych consulted and recommend outpatient mental health follow up. Disposition -PENDING PATHOLOGY -DVT prophylaxis: SCDs only due to recent SAH History Interval history: Patient seen and examined, no further vomiting and nausea noted today. she is tolerating diet. Blood glucose still elevated, Hospitalist Physical - Physical exam Narrative exam: VITAL SIGNS: Reviewed. GENERAL: The patient appeared lethargic appearing , cachetic. Vital signs as documented. HEAD: No signs of head trauma. temporal wasting noted EYES: Pupils are equal. Extraocular motions intact. EARS: Hearing grossly intact. MOUTH: Oropharynx is normal. NECK: No adenopathy, no JVD. CHEST: Chest with diminshed breath sounds bilaterally. No wheezes, rales, or rhonchi CARDIAC: Regular rate and rhythm. S1 and S2, without murmurs, gallops, or rubs. VASCULAR: Trace Edema. Peripheral pulses normal and equal in all extremities. ABDOMEN: Soft, without detectable tenderness. No sign of distention. No rebound or guarding, and no masses palpated. Bowel Sounds normal. MUSCULOSKELETAL: Good range of motion of all major joints. Extremities without clubbing, cyanosis. Trace edema. NEUROLOGIC EXAM: Alert and oriented x 3. No focal sensory or strength deficits. Speech normal. Follows commands. PSYCHIATRIC: Mood normal. SKIN: No rash or lesions. - Constitutional Vitals: Temp Pulse Resp BP Pulse Ox 97.8 F 104 H 16 163/100 100 01/06/17 07:05 01/06/17 09:17 01/06/17 07:05 01/06/17 09:17 01/06/17 07:05 General appearance: Present: no acute distress, other (chronically ill-appearing ) Results - Labs CBC & Chem 7: 01/05/17 05:00 01/05/17 Unknown Labs: Laboratory Last Values WBC 8.1 K/mm3 (4.5-11.0) 01/05/17 05:00 RBC 3.10 M/mm3 (3.65-5.03) L 01/05/17 05:00 Hgb 9.1 gm/dl (10.1-14.3) L 01/05/17 05:00 Hct 27.9 % (30.3-42.9) L 01/05/17 05:00 MCV 90 fl (79-97) 01/05/17 05:00 MCH 29 pg (28-32) 01/05/17 05:00 MCHC 33 % (30-34) 01/05/17 05:00 RDW 16.4 % (13.2-15.2) H 01/05/17 05:00 Plt Count 434 K/mm3 (140-440) 01/05/17 05:00 Lymph % (Auto) 8.1 % (13.4-35.0) L 12/22/16 06:45 [place] % (Auto) 5.3 % (0.0-7.3) 12/22/16 06:45 Eos % (Auto) 1.4 % (0.0-4.3) 12/22/16 06:45 Baso % (Auto) 0.9 % (0.0-1.8) 12/22/16 06:45 Lymph # 1.4 K/mm3 (1.2-5.4) 12/22/16 06:45 [place] # 0.9 K/mm3 (0.0-0.8) H 12/22/16 06:45 Eos # 0.2 K/mm3 (0.0-0.4) 12/22/16 06:45 Baso # 0.2 K/mm3 (0.0-0.1) H 12/22/16 06:45 Add Manual Diff Complete 12/13/16 07:49 Total Counted 100 12/13/16 07:49 Seg Neutrophils % 84.3 % (40.0-70.0) H 12/22/16 06:45 Seg Neuts % (Manual) 89.0 % (40.0-70.0) H 12/13/16 07:49 Band Neutrophils % 1.0 % 12/13/16 07:49 Lymphocytes % (Manual) 7.0 % (13.4-35.0) L 12/13/16 07:49 Reactive Lymphs % (Man) 0 % 12/13/16 07:49 Monocytes % (Manual) 3.0 % (0.0-7.3) 12/13/16 07:49 Eosinophils % (Manual) 0 % (0.0-4.3) 12/13/16 07:49 Basophils % (Manual) 0 % (0.0-1.8) 12/13/16 07:49 Metamyelocytes % 0 % 12/13/16 07:49 Myelocytes % 0 % 12/13/16 07:49 Promyelocytes % 0 % 12/13/16 07:49 Blast Cells % 0 % 12/13/16 07:49 Nucleated RBC % Not Reportable 12/13/16 07:49 Seg Neutrophils # 14.6 K/mm3 (1.8-7.7) H 12/22/16 06:45 Seg Neutrophils # Man 21.4 K/mm3 (1.8-7.7) H 12/13/16 07:49 Band Neutrophils # 0.2 K/mm3 12/13/16 07:49 Lymphocytes # (Manual) 1.7 K/mm3 (1.2-5.4) 12/13/16 07:49 Abs React Lymphs (Man) 0.0 K/mm3 12/13/16 07:49 Monocytes # (Manual) 0.7 K/mm3 (0.0-0.8) 12/13/16 07:49 Eosinophils # (Manual) 0.0 K/mm3 (0.0-0.4) 12/13/16 07:49 Basophils # (Manual) 0.0 K/mm3 (0.0-0.1) 12/13/16 07:49 Metamyelocytes # 0.0 K/mm3 12/13/16 07:49 Myelocytes # 0.0 K/mm3 12/13/16 07:49 Promyelocytes # 0.0 K/mm3 12/13/16 07:49 Blast Cells # 0.0 K/mm3 12/13/16 07:49 WBC Morphology Not Reportable 12/13/16 07:49 Hypersegmented Neuts Not Reportable 12/13/16 07:49 Hyposegmented Neuts Not Reportable 12/13/16 07:49 Hypogranular Neuts Not Reportable 12/13/16 07:49 Smudge Cells Not Reportable 12/13/16 07:49 Toxic Granulation Not Reportable 12/13/16 07:49 Toxic Vacuolation Not Reportable 12/13/16 07:49 Dohle Bodies Not Reportable 12/13/16 07:49 Pelger-Huet Anomaly Not Reportable 12/13/16 07:49 Mary Rods Not Reportable 12/13/16 07:49 Platelet Estimate Cons 12/13/16 07:49 Clumped Platelets Not Reportable 12/13/16 07:49 Plt Clumps, EDTA Not Reportable 12/13/16 07:49 Large Platelets Rare 12/13/16 07:49 Giant Platelets Not Reportable 12/13/16 07:49 Platelet Satelliting Not Reportable 12/13/16 07:49 Plt Morphology Comment Not Reportable 12/13/16 07:49 RBC Morphology Not Reportable 12/13/16 07:49 Dimorphic RBCs Not Reportable 12/13/16 07:49 Polychromasia Not Reportable 12/13/16 07:49 Hypochromasia 1+ 12/13/16 07:49 Poikilocytosis Not Reportable 12/13/16 07:49 Anisocytosis 1+ 12/13/16 07:49 Microcytosis Not Reportable 12/13/16 07:49 Macrocytosis Not Reportable 12/13/16 07:49 Spherocytes Not Reportable 12/13/16 07:49 Pappenheimer Bodies Not Reportable 12/13/16 07:49 Sickle Cells Not Reportable 12/13/16 07:49 Target Cells Few 12/13/16 07:49 Tear Drop Cells Not Reportable 12/13/16 07:49 Ovalocytes Not Reportable 12/13/16 07:49 Helmet Cells Not Reportable 12/13/16 07:49 [place] Bodies Not Reportable 12/13/16 07:49 Sawyer Rings Not Reportable 12/13/16 07:49 Jerri Cells Not Reportable 12/13/16 07:49 Bite Cells Not Reportable 12/13/16 07:49 Crenated Cell Not Reportable 12/13/16 07:49 Elliptocytes Not Reportable 12/13/16 07:49 Acanthocytes (Spur) Not Reportable 12/13/16 07:49 Rouleaux Not Reportable 12/13/16 07:49 Hemoglobin C Crystals Not Reportable 12/13/16 07:49 Schistocytes Not Reportable 12/13/16 07:49 Malaria parasites Not Reportable 12/13/16 07:49 Percent Retic 0.23 % (0.78-2.58) L 12/09/16 11:29 Michael Bodies Not Reportable 12/13/16 07:49 Haptoglobin 271 mg/dL (43-212) H 12/08/16 21:30 Hem Pathologist Commnt No 12/13/16 07:49 PT 15.3 Sec. (12.2-14.9) H 12/08/16 19:00 INR 1.22 (0.87-1.13) H 12/08/16 19:00 APTT 36.2 Sec. (24.2-36.6) 12/08/16 19:00 Fibrinogen 563 mg/dl (211-480) H 12/08/16 19:00 D-Dimer 5507.36 ng/mlDDU (0-234) H 12/08/16 19:00 Heparin Anti-Xa, Unfract Negative (Negative) 12/09/16 13:27 POC ABG pH 7.326 (7.35-7.45) L 12/09/16 12:02 POC ABG pCO2 37.7 (35-45) 12/09/16 12:02 POC ABG pO2 115 (80-105) H 12/09/16 12:02 POC ABG HCO3 19.7 12/09/16 12:02 POC ABG Total CO2 21 12/09/16 12:02 POC ABG O2 Sat 98 12/09/16 12:02 POC ABG Base Excess -6 12/09/16 12:02 FiO2 30 % 12/09/16 12:02 Sodium 134 mmol/L (137-145) L 01/05/17 Unknown Potassium 4.6 mmol/L (3.6-5.0) D 01/05/17 Unknown Chloride 98.2 mmol/L (98-107) 01/05/17 Unknown Carbon Dioxide 18 mmol/L (22-30) L 01/05/17 Unknown Anion Gap 22 mmol/L 01/05/17 Unknown BUN 30 mg/dL (7-17) H 01/05/17 Unknown Creatinine 1.8 mg/dL (0.7-1.2) H 01/05/17 Unknown Estimated GFR 36 ml/min 01/05/17 Unknown BUN/Creatinine Ratio 16.66 % 01/05/17 Unknown Glucose 329 mg/dL (65-100) H 01/05/17 Unknown POC Glucose 258 (70-105) H 01/06/17 12:03 Lactic Acid 6.90 mmol/L (0.7-2.0) H* 12/07/16 07:30 Calcium 7.4 mg/dL (8.4-10.2) L 01/05/17 Unknown Phosphorus 2.60 mg/dL (2.5-4.5) 12/26/16 Unknown Magnesium 1.40 mg/dL (1.7-2.3) L 01/01/17 01:46 Iron 66 ug/dL (37-170) 12/21/16 05:00 TIBC 193.20 mcg/dL (250-450) L 12/21/16 05:00 Transferrin 138 mg/dl (192-382) L 12/21/16 05:00 Ferritin 321.4 ng/mL (13.0-400.0) 12/21/16 05:00 Total Bilirubin 0.20 mg/dL (0.1-1.2) 01/04/17 06:57 Direct Bilirubin < 0.2 mg/dL (0-0.2) 01/04/17 06:57 Indirect Bilirubin 0.5 mg/dL 12/07/16 21:35 AST 15 units/L (5-40) 01/04/17 06:57 ALT 6 units/L (7-56) L 01/04/17 06:57 Alkaline Phosphatase 161 units/L (35-129) H 01/04/17 06:57 Lactate Dehydrogenase 382 units/L (91-180) H 12/08/16 19:00 Total Creatine Kinase 123 units/L (30-135) 12/04/16 09:55 CK-MB (CK-2) 4.6 ng/mL (0.0-4.0) H 12/04/16 09:55 CK-MB (CK-2) Rel Index 3.7 (0-4) 12/04/16 09:55 Troponin T 0.140 ng/mL (0.00-0.029) H* D 12/04/16 09:55 C-Reactive Protein 39.40 mg/dL (0.00-1.30) H 12/07/16 06:00 Total Protein 5.6 g/dL (6.3-8.2) L 01/04/17 06:57 Albumin 2.7 g/dL (3.9-5) L 01/04/17 06:57 Albumin/Globulin Ratio 0.9 % 01/04/17 06:57 Triglycerides 570 mg/dL (2-149) H 12/04/16 07:55 Cholesterol 221 mg/dL (50-199) H 12/04/16 07:55 LDL Cholesterol Direct TNR 12/04/16 07:55 HDL Cholesterol 37 mg/dL (40-59) L 12/04/16 07:55 Cholesterol/HDL Ratio 5.97 % 12/04/16 07:55 Serotonin Release Assay See scanned report 12/09/16 13:27 Vitamin B12 > 2000 pg/mL (211-911) H 12/09/16 13:27 Folate 8.10 ng/mL (7.3-26.0) 12/09/16 13:27 TSH 1.600 mlU/mL (0.270-4.200) 12/03/16 23:20 Urine Color Yellow (Yellow) 12/04/16 11:25 Urine Turbidity Slightly-cloudy (Clear) 12/04/16 11:25 Urine pH 5.0 (5.0-7.0) 12/04/16 11:25 Ur Specific [place] 1.018 (1.003-1.030) 12/04/16 11:25 Urine Protein 30 mg/dl mg/dL (Negative) 12/04/16 11:25 Urine Glucose (UA) >=500 mg/dL (Negative) 12/04/16 11:25 Urine Ketones Tr mg/dL (Negative) 12/04/16 11:25 Urine Blood Sm (Negative) 12/04/16 11:25 Urine Nitrite Neg (Negative) 12/04/16 11:25 Urine Bilirubin Neg (Negative) 12/04/16 11:25 Urine Urobilinogen < 2.0 mg/dL (<2.0) 12/04/16 11:25 Ur Leukocyte Esterase Neg (Negative) 12/04/16 11:25 Urine WBC (Auto) 4.0 /HPF (0.0-6.0) 12/04/16 11:25 Urine RBC (Auto) 2.0 /HPF (0.0-6.0) 12/04/16 11:25 U Epithel Cells (Auto) < 1.0 /HPF (0-13.0) 12/04/16 11:25 Urine Mucus Few /HPF 12/04/16 11:25 Urine Osmolality 419 Mosm/kg 12/04/16 11:25 Urine Total Volume 200 12/24/16 00:00 Urine Creatinine 239.9 mg/dL (0.1-20.0) H 12/24/16 00:00 Height (in) 64.0 inches 12/24/16 00:00 Weight (lb) 114.0 lbs 12/24/16 00:00 Creatinine Clearance 12 12/24/16 00:00 Protein/Creatinin Ratio 1.12 12/04/16 11:25 Urine Sodium 26 mEq/L 12/04/16 11:25 Urine Total Protein 33 mg/dL (5-11.8) H 12/04/16 11:25 Urine Opiates Screen Presumptive negative 12/04/16 11:25 Urine Methadone Screen Presumptive negative 12/04/16 11:25 Ur Barbiturates Screen Presumptive negative 12/04/16 11:25 Ur Phencyclidine Scrn Presumptive negative 12/04/16 11:25 Ur Amphetamines Screen Presumptive negative 12/04/16 11:25 U Benzodiazepines Scrn Presumptive negative 12/04/16 11:25 Urine Cocaine Screen Presumptive negative 12/04/16 11:25 U Marijuana (THC) Screen Presumptive positive 12/04/16 11:25 Drugs of Abuse Note Disclamer 12/04/16 11:25 Heparin-induced Plt Ab Weak positive (Negative) H 12/09/16 13:27 UF Heparin High Dose 0 % Release 12/09/16 13:27 ADRIENNE UFH Low Dose 0.1 0 % Release 12/09/16 13:27 ADRIENNE UFH Low Dose 0.5 0 % Release 12/09/16 13:27 Hep Bs Antigen Non-reactive (Negative) 12/09/16 13:27 Hep Bs Antibody, Quant <5 mIU/mL (>=10) L 12/09/16 13:27 Hep B Core Total Ab Nonreactive (Nonreactive) 12/09/16 13:27 Hepatitis C Antibody Non-reactive (NonReactive) 12/09/16 13:27 HIV 1&2 Antibody Rapid Non react (Non React) 12/09/16 13:27 HIV P24 Antigen Non react (Non React) 12/09/16 13:27 Schistocytes Smear None seen 12/09/16 11:29 Blood Type O POSITIVE 01/03/17 12:30 Antibody Screen TNR 01/03/17 12:30 ISAIAH Antibody Screen Negative 01/03/17 12:30 Crossmatch See Detail 01/03/17 12:30
[2017-01-06] MEDS ORDERED: PROVENTIL IH PRN ×2 (14:08→14:09)
[2017-01-06] MEDS: DUONEB *Not for PRN Use IH SCH (20:57)
[2017-01-06] MEDS: NACL 0.9% 1000 ML 1,000 ML IV SCH (21:53)
[2017-01-07] MEDS: BENADRYL PO PRN ×4 (01:04→23:05)
[2017-01-07] MEDS: PERCOCET 5/325 PO PRN ×4 (01:04→23:05)
[2017-01-07 06:36] LABS: Hemoglobin 7.4 gm/dl (10.1-14.3); Mean Corpuscular HGB Conc 32 % (30-34); Mean Corpuscular Hemoglobin 29 pg (28-32); Mean Corpuscular Volume 91 fl (79-97); Platelet Count 400 K/mm3 (140-440); Red Blood Count 2.54 M/mm3 (3.65-5.03); Red Cell Distribution Width 16.6 % (13.2-15.2); White Blood Count 14.1 K/mm3 (4.5-11.0)
[2017-01-07 06:54] LABS: BUN/Creatinine Ratio 30.76; Calcium 7.7 mg/dL (8.4-10.2); Chloride 100.9 mmol/L (98-107); Potassium 4.7 mmol/L (3.6-5.0)
[2017-01-07] MEDS: DUONEB *Not for PRN Use IH SCH ×2 (08:36→14:19)
[2017-01-07] MEDS: LOPRESSOR PO SCH ×2 (10:02→22:20)
[2017-01-07] MEDS: DELTASONE PO SCH (10:02)
[2017-01-07] MEDS: VIBRAMYCIN PO SCH (10:02)
[2017-01-07] MEDS: PEPCID PO SCH (10:03)
[2017-01-07] MEDS: TYLENOL PO PRN (10:04)
[2017-01-07] MEDS: NOVOLOG SUB-Q SCH ×4 (10:04→23:02)
[2017-01-07] MEDS ORDERED: NACL 0.9% 1000 ML 2,000 ML IV ONE (12:23)
--- NOTE | 2017-01-07 12:42 | XRay Report ---
SUPINE KUB: History: Persistent nausea and vomiting The abdominal gas pattern is unremarkable. No masses or organomegaly is identified and there is no gross evidence of free air or fluid. No significant soft tissue calcifications are noted. IMPRESSION: Normal study.
--- NOTE | 2017-01-07 13:01 | Progress Note ---
Assessment and Plan - Patient Problems (1) Severe sepsis Current Visit: Yes Status: Deleted Plan to address problem: - resolved (2) Acute renal failure Current Visit: No Status: Acute Qualifiers: Acute renal failure type: A Plan to address problem: - improved - per nephrology - s/p Dialysis (3) Acute respiratory failure with hypoxemia Current Visit: No Status: Acute Plan to address problem: - due to pneumonia - biopsy suggest's boop and on steroid therapy (will be discontinued based on clinical and radiographic improvement) - i still believe there is a significant pneumonia component and we will treat with AB's based on sensitivity reports from bronch studies - CXR ordered (4) DKA (diabetic ketoacidoses) Current Visit: Yes Status: Acute Qualifiers: Diabetes mellitus type: type 1 Diabetes mellitus complication detail: without coma Diabetes mellitus group home insulin use: D Qualified Code(s): E10.10 - Type 1 diabetes mellitus with ketoacidosis without coma Plan to address problem: - resolved - need to watch sugars closely while on systemic steroids (5) Discharge planning issues Current Visit: No Status: Acute Plan to address problem: - will review CXR - also question of fevers today but not recorded ...re-evaluate in am & prn Subjective Date of service: 01/07/17 Principal diagnosis: Sepsis; Pneumonia; ASHELY on dialysis; Diabetes Interval history: Seen and examined at bedside; 24 hour events reviewed; nursing and respiratory care staff consulted; no adverse overnight events reported to me; resting in bed ; still emotionally labile; no hemoptysis; no high grade fevers per patient Objective Vital Signs - 12hr 01/07/17 01/07/17 01/07/17 07:20 08:37 08:51 Temperature 99.9 F H Pulse Rate 101 H Pulse Rate [ 109 H Anterior Bilateral Throughout] Pulse Rate [ Right Radial] Respiratory 20 Rate Respiratory 16 18 Rate [Anterior Bilateral Throughout] Blood Pressure 165/94 O2 Sat by Pulse 99 Oximetry 01/07/17 01/07/17 10:00 10:02 Temperature Pulse Rate 109 H Pulse Rate [ Anterior Bilateral Throughout] Pulse Rate [ 101 H Right Radial] Respiratory Rate Respiratory Rate [Anterior Bilateral Throughout] Blood Pressure 165/94 O2 Sat by Pulse Oximetry Constitutional: no acute distress, alert Eyes: non-icteric ENT: oropharynx moist Neck: supple, no lymphadenopathy Effort: normal Ascultation: Right: rales, Bilateral: diminished breath sounds Cardiovascular: regular rate and rhythm Gastrointestinal: normoactive bowel sounds, soft, non-tender, non-distended Integumentary: normal Extremities: no cyanosis, no edema, pulses normal, no ischemia or petechiae Neurologic: normal mental status, non-focal exam, pupils equal and round, motor strength normal and Psychiatric: mood appropriate, affect normal CBC and BMP: 01/08/17 06:40 01/08/17 06:40 ABG, PT/INR, D-dimer: ABG POC ABG pH 7.326 (7.35-7.45) L 12/09/16 12:02 POC ABG pCO2 37.7 (35-45) 12/09/16 12:02 POC ABG pO2 115 (80-105) H 12/09/16 12:02 POC ABG HCO3 19.7 12/09/16 12:02 POC ABG Total CO2 21 12/09/16 12:02 POC ABG O2 Sat 98 12/09/16 12:02 PT/INR, D-dimer PT 15.3 Sec. (12.2-14.9) H 12/08/16 19:00 INR 1.22 (0.87-1.13) H 12/08/16 19:00 D-Dimer 5507.36 ng/mlDDU (0-234) H 12/08/16 19:00 Abnormal lab findings: Abnormal Labs 12/04/16 12/04/16 12/04/16 01:19 01:36 02:21 WBC RBC Hgb Hct MCV MCHC RDW Plt Count Lymph % (Auto) [place] % (Auto) [place] # Baso # Seg Neutrophils % Seg Neuts % (Manual) Lymphocytes % (Manual) Monocytes % (Manual) Nucleated RBC % Seg Neutrophils # Seg Neutrophils # Man Lymphocytes # (Manual) Monocytes # (Manual) Percent Retic Haptoglobin PT INR Fibrinogen D-Dimer POC ABG pH 6.759 L POC ABG pCO2 POC ABG pO2 437 H Sodium Potassium Chloride Carbon Dioxide BUN Creatinine Glucose POC Glucose > 500 H Lactic Acid Calcium Phosphorus 15.70 H Magnesium 4.30 H Iron TIBC Transferrin Total Bilirubin Direct Bilirubin AST ALT Alkaline Phosphatase Lactate Dehydrogenase CK-MB (CK-2) Troponin T C-Reactive Protein Total Protein Albumin Triglycerides Cholesterol HDL Cholesterol Vitamin B12 Urine Creatinine Urine Total Protein Heparin-induced Plt Ab Hep Bs Antibody, Quant Crossmatch 12/04/16 12/04/16 12/04/16 03:55 04:00 05:11 WBC RBC Hgb Hct MCV MCHC RDW Plt Count Lymph % (Auto) [place] % (Auto) [place] # Baso # Seg Neutrophils % Seg Neuts % (Manual) Lymphocytes % (Manual) Monocytes % (Manual) Nucleated RBC % Seg Neutrophils # Seg Neutrophils # Man Lymphocytes # (Manual) Monocytes # (Manual) Percent Retic Haptoglobin PT INR Fibrinogen D-Dimer POC ABG pH POC ABG pCO2 POC ABG pO2 Sodium Potassium Chloride 91.4 L Carbon Dioxide 8 L* BUN 55 H Creatinine 2.8 H Glucose 1610 H* POC Glucose > 500 H > 500 H Lactic Acid Calcium Phosphorus Magnesium Iron TIBC Transferrin Total Bilirubin Direct Bilirubin AST ALT Alkaline Phosphatase Lactate Dehydrogenase CK-MB (CK-2) Troponin T C-Reactive Protein Total Protein Albumin Triglycerides Cholesterol HDL Cholesterol Vitamin B12 Urine Creatinine Urine Total Protein Heparin-induced Plt Ab Hep Bs Antibody, Quant Crossmatch 12/04/16 12/04/16 12/04/16 05:40 05:54 06:58 WBC RBC Hgb Hct MCV MCHC RDW Plt Count Lymph % (Auto) [place] % (Auto) [place] # Baso # Seg Neutrophils % Seg Neuts % (Manual) Lymphocytes % (Manual) Monocytes % (Manual) Nucleated RBC % Seg Neutrophils # Seg Neutrophils # Man Lymphocytes # (Manual) Monocytes # (Manual) Percent Retic Haptoglobin PT INR Fibrinogen D-Dimer POC ABG pH 7.154 L POC ABG pCO2 27.5 L POC ABG pO2 111 H Sodium Potassium Chloride Carbon Dioxide BUN Creatinine Glucose POC Glucose > 500 H > 500 H Lactic Acid Calcium Phosphorus Magnesium Iron TIBC Transferrin Total Bilirubin Direct Bilirubin AST ALT Alkaline Phosphatase Lactate Dehydrogenase CK-MB (CK-2) Troponin T C-Reactive Protein Total Protein Albumin Triglycerides Cholesterol HDL Cholesterol Vitamin B12 Urine Creatinine Urine Total Protein Heparin-induced Plt Ab Hep Bs Antibody, Quant Crossmatch 12/04/16 12/04/16 12/04/16 07:49 07:55 07:55 WBC RBC Hgb Hct MCV MCHC RDW Plt Count Lymph % (Auto) [place] % (Auto) [place] # Baso # Seg Neutrophils % Seg Neuts % (Manual) Lymphocytes % (Manual) Monocytes % (Manual) Nucleated RBC % Seg Neutrophils # Seg Neutrophils # Man Lymphocytes # (Manual) Monocytes # (Manual) Percent Retic Haptoglobin PT INR Fibrinogen D-Dimer POC ABG pH POC ABG pCO2 POC ABG pO2 Sodium Potassium 3.3 L Chloride Carbon Dioxide 9 L* BUN 53 H Creatinine 2.9 H Glucose 1229 H* POC Glucose > 500 H Lactic Acid Calcium Phosphorus Magnesium Iron TIBC Transferrin Total Bilirubin Direct Bilirubin AST ALT Alkaline Phosphatase Lactate Dehydrogenase CK-MB (CK-2) Troponin T 0.111 H* D C-Reactive Protein Total Protein Albumin Triglycerides 570 H Cholesterol 221 H HDL Cholesterol 37 L Vitamin B12 Urine Creatinine Urine Total Protein Heparin-induced Plt Ab Hep Bs Antibody, Quant Crossmatch 12/04/16 12/04/16 12/04/16 07:55 09:55 09:55 WBC RBC 2.90 L Hgb 8.5 L Hct 30.2 L D MCV 105 H D MCHC 28 L RDW 19.2 H Plt Count Lymph % (Auto) [place] % (Auto) [place] # Baso # Seg Neutrophils % Seg Neuts % (Manual) Lymphocytes % (Manual) 11.0 L Monocytes % (Manual) Nucleated RBC % Seg Neutrophils # Seg Neutrophils # Man Lymphocytes # (Manual) 0.6 L Monocytes # (Manual) Percent Retic Haptoglobin PT INR Fibrinogen D-Dimer POC ABG pH POC ABG pCO2 POC ABG pO2 Sodium Potassium 3.1 L Chloride Carbon Dioxide 7 L* BUN 51 H Creatinine 3.2 H Glucose 969 H* POC Glucose Lactic Acid Calcium 10.4 H D Phosphorus Magnesium Iron TIBC Transferrin Total Bilirubin Direct Bilirubin AST ALT Alkaline Phosphatase Lactate Dehydrogenase CK-MB (CK-2) 4.6 H Troponin T 0.140 H* D C-Reactive Protein Total Protein Albumin Triglycerides Cholesterol HDL Cholesterol Vitamin B12 Urine Creatinine Urine Total Protein Heparin-induced Plt Ab Hep Bs Antibody, Quant Crossmatch 12/04/16 12/04/16 12/04/16 09:55 10:37 11:25 WBC RBC Hgb Hct MCV MCHC RDW Plt Count Lymph % (Auto) [place] % (Auto) [place] # Baso # Seg Neutrophils % Seg Neuts % (Manual) Lymphocytes % (Manual) Monocytes % (Manual) Nucleated RBC % Seg Neutrophils # Seg Neutrophils # Man Lymphocytes # (Manual) Monocytes # (Manual) Percent Retic Haptoglobin PT INR Fibrinogen D-Dimer POC ABG pH 7.215 L POC ABG pCO2 18.8 L POC ABG pO2 193 H Sodium Potassium Chloride Carbon Dioxide BUN Creatinine Glucose POC Glucose Lactic Acid Calcium Phosphorus Magnesium 3.70 H Iron TIBC Transferrin Total Bilirubin Direct Bilirubin AST ALT Alkaline Phosphatase Lactate Dehydrogenase CK-MB (CK-2) Troponin T C-Reactive Protein Total Protein Albumin Triglycerides Cholesterol HDL Cholesterol Vitamin B12 Urine Creatinine 29.5 H Urine Total Protein 33 H Heparin-induced Plt Ab Hep Bs Antibody, Quant Crossmatch 12/04/16 12/04/16 12/04/16 12:00 12:48 13:00 WBC RBC Hgb Hct MCV MCHC RDW Plt Count Lymph % (Auto) [place] % (Auto) [place] # Baso # Seg Neutrophils % Seg Neuts % (Manual) Lymphocytes % (Manual) Monocytes % (Manual) Nucleated RBC % Seg Neutrophils # Seg Neutrophils # Man Lymphocytes # (Manual) Monocytes # (Manual) Percent Retic Haptoglobin PT INR Fibrinogen D-Dimer POC ABG pH POC ABG pCO2 POC ABG pO2 Sodium 149 H 150 H Potassium 3.2 L 3.2 L Chloride 109.1 H Carbon Dioxide 8 L* 8 L* BUN 52 H 49 H Creatinine 3.4 H 3.1 H Glucose 723 H* 574 H* POC Glucose Lactic Acid 18.80 H* Calcium Phosphorus Magnesium Iron TIBC Transferrin Total Bilirubin Direct Bilirubin AST ALT Alkaline Phosphatase Lactate Dehydrogenase CK-MB (CK-2) Troponin T C-Reactive Protein Total Protein Albumin Triglycerides Cholesterol HDL Cholesterol Vitamin B12 Urine Creatinine Urine Total Protein Heparin-induced Plt Ab Hep Bs Antibody, Quant Crossmatch 12/04/16 12/04/16 12/04/16 13:01 14:41 16:06 WBC RBC Hgb Hct MCV MCHC RDW Plt Count Lymph % (Auto) [place] % (Auto) [place] # Baso # Seg Neutrophils % Seg Neuts % (Manual) Lymphocytes % (Manual) Monocytes % (Manual) Nucleated RBC % Seg Neutrophils # Seg Neutrophils # Man Lymphocytes # (Manual) Monocytes # (Manual) Percent Retic Haptoglobin PT INR Fibrinogen D-Dimer POC ABG pH POC ABG pCO2 POC ABG pO2 Sodium 151 H Potassium 3.2 L Chloride 108.1 H Carbon Dioxide 10 L BUN 49 H Creatinine 3.0 H Glucose 383 H POC Glucose 292 H Lactic Acid Calcium Phosphorus Magnesium Iron TIBC Transferrin Total Bilirubin Direct Bilirubin AST ALT Alkaline Phosphatase Lactate Dehydrogenase CK-MB (CK-2) Troponin T C-Reactive Protein 3.50 H Total Protein Albumin Triglycerides Cholesterol HDL Cholesterol Vitamin B12 Urine Creatinine Urine Total Protein Heparin-induced Plt Ab Hep Bs Antibody, Quant Crossmatch 12/04/16 12/04/16 12/04/16 17:15 17:25 18:07 WBC RBC Hgb Hct MCV MCHC RDW Plt Count Lymph % (Auto) [place] % (Auto) [place] # Baso # Seg Neutrophils % Seg Neuts % (Manual) Lymphocytes % (Manual) Monocytes % (Manual) Nucleated RBC % Seg Neutrophils # Seg Neutrophils # Man Lymphocytes # (Manual) Monocytes # (Manual) Percent Retic Haptoglobin PT INR Fibrinogen D-Dimer POC ABG pH 7.255 L POC ABG pCO2 16.9 L POC ABG pO2 169 H Sodium Potassium Chloride Carbon Dioxide BUN Creatinine Glucose POC Glucose 246 H Lactic Acid 18.50 H* Calcium Phosphorus Magnesium Iron TIBC Transferrin Total Bilirubin Direct Bilirubin AST ALT Alkaline Phosphatase Lactate Dehydrogenase CK-MB (CK-2) Troponin T C-Reactive Protein Total Protein Albumin Triglycerides Cholesterol HDL Cholesterol Vitamin B12 Urine Creatinine Urine Total Protein Heparin-induced Plt Ab Hep Bs Antibody, Quant Crossmatch 12/04/16 12/04/16 12/04/16 19:34 20:31 21:15 WBC RBC Hgb Hct MCV MCHC RDW Plt Count Lymph % (Auto) [place] % (Auto) [place] # Baso # Seg Neutrophils % Seg Neuts % (Manual) Lymphocytes % (Manual) Monocytes % (Manual) Nucleated RBC % Seg Neutrophils # Seg Neutrophils # Man Lymphocytes # (Manual) Monocytes # (Manual) Percent Retic Haptoglobin PT INR Fibrinogen D-Dimer POC ABG pH POC ABG pCO2 POC ABG pO2 Sodium Potassium Chloride Carbon Dioxide BUN Creatinine Glucose POC Glucose 189 H 126 H 139 H Lactic Acid Calcium Phosphorus Magnesium Iron TIBC Transferrin Total Bilirubin Direct Bilirubin AST ALT Alkaline Phosphatase Lactate Dehydrogenase CK-MB (CK-2) Troponin T C-Reactive Protein Total Protein Albumin Triglycerides Cholesterol HDL Cholesterol Vitamin B12 Urine Creatinine Urine Total Protein Heparin-induced Plt Ab Hep Bs Antibody, Quant Crossmatch 12/04/16 12/04/16 12/04/16 21:25 22:37 23:35 WBC RBC Hgb Hct MCV MCHC RDW Plt Count Lymph % (Auto) [place] % (Auto) [place] # Baso # Seg Neutrophils % Seg Neuts % (Manual) Lymphocytes % (Manual) Monocytes % (Manual) Nucleated RBC % Seg Neutrophils # Seg Neutrophils # Man Lymphocytes # (Manual) Monocytes # (Manual) Percent Retic Haptoglobin PT INR Fibrinogen D-Dimer POC ABG pH 7.294 L POC ABG pCO2 16.7 L POC ABG pO2 169 H Sodium Potassium Chloride Carbon Dioxide BUN Creatinine Glucose POC Glucose 131 H 106 H Lactic Acid Calcium Phosphorus Magnesium Iron TIBC Transferrin Total Bilirubin Direct Bilirubin AST ALT Alkaline Phosphatase Lactate Dehydrogenase CK-MB (CK-2) Troponin T C-Reactive Protein Total Protein Albumin Triglycerides Cholesterol HDL Cholesterol Vitamin B12 Urine Creatinine Urine Total Protein Heparin-induced Plt Ab Hep Bs Antibody, Quant Crossmatch 12/05/16 12/05/16 12/05/16 02:40 02:50 02:50 WBC RBC Hgb Hct MCV MCHC RDW Plt Count Lymph % (Auto) [place] % (Auto) [place] # Baso # Seg Neutrophils % Seg Neuts % (Manual) Lymphocytes % (Manual) Monocytes % (Manual) Nucleated RBC % Seg Neutrophils # Seg Neutrophils # Man Lymphocytes # (Manual) Monocytes # (Manual) Percent Retic Haptoglobin PT INR Fibrinogen D-Dimer POC ABG pH POC ABG pCO2 POC ABG pO2 Sodium 151 H Potassium Chloride 113.8 H Carbon Dioxide 12 L BUN 46 H Creatinine 3.2 H Glucose 165 H POC Glucose 109 H Lactic Acid 9.80 H* Calcium 8.3 L Phosphorus Magnesium Iron TIBC Transferrin Total Bilirubin Direct Bilirubin AST ALT Alkaline Phosphatase Lactate Dehydrogenase CK-MB (CK-2) Troponin T C-Reactive Protein Total Protein Albumin Triglycerides Cholesterol HDL Cholesterol Vitamin B12 Urine Creatinine Urine Total Protein Heparin-induced Plt Ab Hep Bs Antibody, Quant Crossmatch 12/05/16 12/05/16 12/05/16 04:01 04:30 04:30 WBC 19.1 H RBC 2.91 L Hgb 8.0 L Hct 25.4 L MCV MCHC RDW 17.8 H Plt Count Lymph % (Auto) [place] % (Auto) [place] # Baso # Seg Neutrophils % Seg Neuts % (Manual) 17.0 L Lymphocytes % (Manual) 7.0 L Monocytes % (Manual) Nucleated RBC % 3.0 H Seg Neutrophils # Seg Neutrophils # Man Lymphocytes # (Manual) Monocytes # (Manual) Percent Retic Haptoglobin PT INR Fibrinogen D-Dimer POC ABG pH POC ABG pCO2 POC ABG pO2 Sodium 152 H Potassium Chloride 113.5 H Carbon Dioxide 12 L BUN 47 H Creatinine 3.2 H Glucose 133 H POC Glucose 179 H Lactic Acid Calcium 8.3 L Phosphorus 1.00 L D Magnesium Iron TIBC Transferrin Total Bilirubin Direct Bilirubin AST ALT Alkaline Phosphatase Lactate Dehydrogenase CK-MB (CK-2) Troponin T C-Reactive Protein Total Protein Albumin Triglycerides Cholesterol HDL Cholesterol Vitamin B12 Urine Creatinine Urine Total Protein Heparin-induced Plt Ab Hep Bs Antibody, Quant Crossmatch 12/05/16 12/05/16 12/05/16 05:32 08:01 08:48 WBC RBC Hgb Hct MCV MCHC RDW Plt Count Lymph % (Auto) [place] % (Auto) [place] # Baso # Seg Neutrophils % Seg Neuts % (Manual) Lymphocytes % (Manual) Monocytes % (Manual) Nucleated RBC % Seg Neutrophils # Seg Neutrophils # Man Lymphocytes # (Manual) Monocytes # (Manual) Percent Retic Haptoglobin PT INR Fibrinogen D-Dimer POC ABG pH POC ABG pCO2 17.6 L POC ABG pO2 62 L Sodium Potassium Chloride Carbon Dioxide BUN Creatinine Glucose POC Glucose 126 H 130 H Lactic Acid Calcium Phosphorus Magnesium Iron TIBC Transferrin Total Bilirubin Direct Bilirubin AST ALT Alkaline Phosphatase Lactate Dehydrogenase CK-MB (CK-2) Troponin T C-Reactive Protein Total Protein Albumin Triglycerides Cholesterol HDL Cholesterol Vitamin B12 Urine Creatinine Urine Total Protein Heparin-induced Plt Ab Hep Bs Antibody, Quant Crossmatch 12/05/16 12/05/16 12/05/16 08:54 12:01 15:15 WBC RBC Hgb Hct MCV MCHC RDW Plt Count Lymph % (Auto) [place] % (Auto) [place] # Baso # Seg Neutrophils % Seg Neuts % (Manual) Lymphocytes % (Manual) Monocytes % (Manual) Nucleated RBC % Seg Neutrophils # Seg Neutrophils # Man Lymphocytes # (Manual) Monocytes # (Manual) Percent Retic Haptoglobin PT INR Fibrinogen D-Dimer POC ABG pH POC ABG pCO2 POC ABG pO2 Sodium Potassium Chloride Carbon Dioxide BUN Creatinine Glucose POC Glucose 157 H 117 H 166 H Lactic Acid Calcium Phosphorus Magnesium Iron TIBC Transferrin Total Bilirubin Direct Bilirubin AST ALT Alkaline Phosphatase Lactate Dehydrogenase CK-MB (CK-2) Troponin T C-Reactive Protein Total Protein Albumin Triglycerides Cholesterol HDL Cholesterol Vitamin B12 Urine Creatinine Urine Total Protein Heparin-induced Plt Ab Hep Bs Antibody, Quant Crossmatch 12/05/16 12/05/16 12/05/16 16:10 16:55 17:08 WBC RBC Hgb Hct MCV MCHC RDW Plt Count Lymph % (Auto) [place] % (Auto) [place] # Baso # Seg Neutrophils % Seg Neuts % (Manual) Lymphocytes % (Manual) Monocytes % (Manual) Nucleated RBC % Seg Neutrophils # Seg Neutrophils # Man Lymphocytes # (Manual) Monocytes # (Manual) Percent Retic Haptoglobin PT INR Fibrinogen D-Dimer POC ABG pH POC ABG pCO2 POC ABG pO2 Sodium Potassium Chloride Carbon Dioxide BUN Creatinine Glucose POC Glucose 178 H 169 H Lactic Acid Calcium Phosphorus 5.00 H D Magnesium Iron TIBC Transferrin Total Bilirubin Direct Bilirubin AST ALT Alkaline Phosphatase Lactate Dehydrogenase CK-MB (CK-2) Troponin T C-Reactive Protein Total Protein Albumin Triglycerides Cholesterol HDL Cholesterol Vitamin B12 Urine Creatinine Urine Total Protein Heparin-induced Plt Ab Hep Bs Antibody, Quant Crossmatch 12/05/16 12/05/16 12/05/16 18:08 18:51 20:04 WBC RBC Hgb Hct MCV MCHC RDW Plt Count Lymph % (Auto) [place] % (Auto) [place] # Baso # Seg Neutrophils % Seg Neuts % (Manual) Lymphocytes % (Manual) Monocytes % (Manual) Nucleated RBC % Seg Neutrophils # Seg Neutrophils # Man Lymphocytes # (Manual) Monocytes # (Manual) Percent Retic Haptoglobin PT INR Fibrinogen D-Dimer POC ABG pH POC ABG pCO2 POC ABG pO2 Sodium Potassium Chloride Carbon Dioxide BUN Creatinine Glucose POC Glucose 147 H 113 H 64 L Lactic Acid Calcium Phosphorus Magnesium Iron TIBC Transferrin Total Bilirubin Direct Bilirubin AST ALT Alkaline Phosphatase Lactate Dehydrogenase CK-MB (CK-2) Troponin T C-Reactive Protein Total Protein Albumin Triglycerides Cholesterol HDL Cholesterol Vitamin B12 Urine Creatinine Urine Total Protein Heparin-induced Plt Ab Hep Bs Antibody, Quant Crossmatch 12/05/16 12/05/16 12/05/16 21:34 22:08 23:19 WBC RBC Hgb Hct MCV MCHC RDW Plt Count Lymph % (Auto) [place] % (Auto) [place] # Baso # Seg Neutrophils % Seg Neuts % (Manual) Lymphocytes % (Manual) Monocytes % (Manual) Nucleated RBC % Seg Neutrophils # Seg Neutrophils # Man Lymphocytes # (Manual) Monocytes # (Manual) Percent Retic Haptoglobin PT INR Fibrinogen D-Dimer POC ABG pH 7.303 L POC ABG pCO2 18.3 L POC ABG pO2 73 L Sodium Potassium Chloride Carbon Dioxide BUN Creatinine Glucose POC Glucose 141 H 200 H Lactic Acid Calcium Phosphorus Magnesium Iron TIBC Transferrin Total Bilirubin Direct Bilirubin AST ALT Alkaline Phosphatase Lactate Dehydrogenase CK-MB (CK-2) Troponin T C-Reactive Protein Total Protein Albumin Triglycerides Cholesterol HDL Cholesterol Vitamin B12 Urine Creatinine Urine Total Protein Heparin-induced Plt Ab Hep Bs Antibody, Quant Crossmatch 12/06/16 12/06/16 12/06/16 00:01 01:09 02:00 WBC RBC Hgb Hct MCV MCHC RDW Plt Count Lymph % (Auto) [place] % (Auto) [place] # Baso # Seg Neutrophils % Seg Neuts % (Manual) Lymphocytes % (Manual) Monocytes % (Manual) Nucleated RBC % Seg Neutrophils # Seg Neutrophils # Man Lymphocytes # (Manual) Monocytes # (Manual) Percent Retic Haptoglobin PT INR Fibrinogen D-Dimer POC ABG pH POC ABG pCO2 POC ABG pO2 Sodium Potassium Chloride Carbon Dioxide BUN Creatinine Glucose POC Glucose 211 H 116 H 57 L Lactic Acid Calcium Phosphorus Magnesium Iron TIBC Transferrin Total Bilirubin Direct Bilirubin AST ALT Alkaline Phosphatase Lactate Dehydrogenase CK-MB (CK-2) Troponin T C-Reactive Protein Total Protein Albumin Triglycerides Cholesterol HDL Cholesterol Vitamin B12 Urine Creatinine Urine Total Protein Heparin-induced Plt Ab Hep Bs Antibody, Quant Crossmatch 12/06/16 12/06/16 12/06/16 04:14 04:50 04:50 WBC RBC 2.68 L Hgb 7.6 L Hct 23.2 L MCV MCHC RDW 18.9 H Plt Count Lymph % (Auto) [place] % (Auto) [place] # Baso # Seg Neutrophils % Seg Neuts % (Manual) 32.0 L Lymphocytes % (Manual) Monocytes % (Manual) Nucleated RBC % 3.0 H Seg Neutrophils # Seg Neutrophils # Man Lymphocytes # (Manual) 0.9 L Monocytes # (Manual) Percent Retic Haptoglobin PT INR Fibrinogen D-Dimer POC ABG pH POC ABG pCO2 POC ABG pO2 Sodium Potassium 5.8 H D Chloride 111.5 H Carbon Dioxide 11 L BUN 52 H Creatinine 3.8 H Glucose 186 H POC Glucose 133 H Lactic Acid Calcium 6.5 L D Phosphorus 5.80 H Magnesium Iron TIBC Transferrin Total Bilirubin Direct Bilirubin AST ALT Alkaline Phosphatase Lactate Dehydrogenase CK-MB (CK-2) Troponin T C-Reactive Protein Total Protein Albumin Triglycerides Cholesterol HDL Cholesterol Vitamin B12 Urine Creatinine Urine Total Protein Heparin-induced Plt Ab Hep Bs Antibody, Quant Crossmatch 12/06/16 12/06/16 12/06/16 04:50 05:04 05:07 WBC RBC Hgb Hct MCV MCHC RDW Plt Count Lymph % (Auto) [place] % (Auto) [place] # Baso # Seg Neutrophils % Seg Neuts % (Manual) Lymphocytes % (Manual) Monocytes % (Manual) Nucleated RBC % Seg Neutrophils # Seg Neutrophils # Man Lymphocytes # (Manual) Monocytes # (Manual) Percent Retic Haptoglobin PT INR Fibrinogen D-Dimer POC ABG pH POC ABG pCO2 13.0 L POC ABG pO2 111 H Sodium Potassium Chloride Carbon Dioxide BUN Creatinine Glucose POC Glucose 127 H Lactic Acid 6.50 H* Calcium Phosphorus Magnesium Iron TIBC Transferrin Total Bilirubin Direct Bilirubin AST ALT Alkaline Phosphatase Lactate Dehydrogenase CK-MB (CK-2) Troponin T C-Reactive Protein Total Protein Albumin Triglycerides Cholesterol HDL Cholesterol Vitamin B12 Urine Creatinine Urine Total Protein Heparin-induced Plt Ab Hep Bs Antibody, Quant Crossmatch 12/06/16 12/06/16 12/06/16 06:10 06:54 07:46 WBC RBC Hgb Hct MCV MCHC RDW Plt Count Lymph % (Auto) [place] % (Auto) [place] # Baso # Seg Neutrophils % Seg Neuts % (Manual) Lymphocytes % (Manual) Monocytes % (Manual) Nucleated RBC % Seg Neutrophils # Seg Neutrophils # Man Lymphocytes # (Manual) Monocytes # (Manual) Percent Retic Haptoglobin PT INR Fibrinogen D-Dimer POC ABG pH POC ABG pCO2 POC ABG pO2 Sodium Potassium Chloride Carbon Dioxide BUN Creatinine Glucose POC Glucose 219 H 237 H 158 H Lactic Acid Calcium Phosphorus Magnesium Iron TIBC Transferrin Total Bilirubin Direct Bilirubin AST ALT Alkaline Phosphatase Lactate Dehydrogenase CK-MB (CK-2) Troponin T C-Reactive Protein Total Protein Albumin Triglycerides Cholesterol HDL Cholesterol Vitamin B12 Urine Creatinine Urine Total Protein Heparin-induced Plt Ab Hep Bs Antibody, Quant Crossmatch 12/06/16 12/06/16 12/06/16 08:55 10:27 11:58 WBC RBC Hgb Hct MCV MCHC RDW Plt Count Lymph % (Auto) [place] % (Auto) [place] # Baso # Seg Neutrophils % Seg Neuts % (Manual) Lymphocytes % (Manual) Monocytes % (Manual) Nucleated RBC % Seg Neutrophils # Seg Neutrophils # Man Lymphocytes # (Manual) Monocytes # (Manual) Percent Retic Haptoglobin PT INR Fibrinogen D-Dimer POC ABG pH POC ABG pCO2 POC ABG pO2 Sodium Potassium Chloride Carbon Dioxide BUN Creatinine Glucose POC Glucose 40 L 128 H 144 H Lactic Acid Calcium Phosphorus Magnesium Iron TIBC Transferrin Total Bilirubin Direct Bilirubin AST ALT Alkaline Phosphatase Lactate Dehydrogenase CK-MB (CK-2) Troponin T C-Reactive Protein Total Protein Albumin Triglycerides Cholesterol HDL Cholesterol Vitamin B12 Urine Creatinine Urine Total Protein Heparin-induced Plt Ab Hep Bs Antibody, Quant Crossmatch 12/06/16 12/06/16 12/06/16 18:14 19:00 19:06 WBC RBC Hgb Hct MCV MCHC RDW Plt Count Lymph % (Auto) [place] % (Auto) [place] # Baso # Seg Neutrophils % Seg Neuts % (Manual) Lymphocytes % (Manual) Monocytes % (Manual) Nucleated RBC % Seg Neutrophils # Seg Neutrophils # Man Lymphocytes # (Manual) Monocytes # (Manual) Percent Retic Haptoglobin PT INR Fibrinogen D-Dimer POC ABG pH POC ABG pCO2 POC ABG pO2 Sodium 149 H Potassium 5.6 H Chloride 115.9 H Carbon Dioxide 13 L BUN 56 H Creatinine 4.3 H Glucose 124 H POC Glucose 55 L 148 H Lactic Acid Calcium 6.0 L Phosphorus Magnesium Iron TIBC Transferrin Total Bilirubin Direct Bilirubin AST ALT Alkaline Phosphatase Lactate Dehydrogenase CK-MB (CK-2) Troponin T C-Reactive Protein Total Protein Albumin Triglycerides Cholesterol HDL Cholesterol Vitamin B12 Urine Creatinine Urine Total Protein Heparin-induced Plt Ab Hep Bs Antibody, Quant Crossmatch 12/06/16 12/06/16 12/07/16 21:24 21:51 02:32 WBC RBC Hgb Hct MCV MCHC RDW Plt Count Lymph % (Auto) [place] % (Auto) [place] # Baso # Seg Neutrophils % Seg Neuts % (Manual) Lymphocytes % (Manual) Monocytes % (Manual) Nucleated RBC % Seg Neutrophils # Seg Neutrophils # Man Lymphocytes # (Manual) Monocytes # (Manual) Percent Retic Haptoglobin PT INR Fibrinogen D-Dimer POC ABG pH POC ABG pCO2 17.0 L POC ABG pO2 142 H Sodium Potassium Chloride Carbon Dioxide BUN Creatinine Glucose POC Glucose 107 H 175 H Lactic Acid Calcium Phosphorus Magnesium Iron TIBC Transferrin Total Bilirubin Direct Bilirubin AST ALT Alkaline Phosphatase Lactate Dehydrogenase CK-MB (CK-2) Troponin T C-Reactive Protein Total Protein Albumin Triglycerides Cholesterol HDL Cholesterol Vitamin B12 Urine Creatinine Urine Total Protein Heparin-induced Plt Ab Hep Bs Antibody, Quant Crossmatch 12/07/16 12/07/16 12/07/16 05:01 05:25 06:00 WBC RBC 2.52 L Hgb 7.1 L Hct 22.1 L MCV MCHC RDW 19.3 H Plt Count 90 L Lymph % (Auto) [place] % (Auto) [place] # Baso # Seg Neutrophils % Seg Neuts % (Manual) 75.0 H Lymphocytes % (Manual) 11.0 L Monocytes % (Manual) Nucleated RBC % Seg Neutrophils # Seg Neutrophils # Man Lymphocytes # (Manual) 0.7 L Monocytes # (Manual) Percent Retic Haptoglobin PT INR Fibrinogen D-Dimer POC ABG pH 7.300 L POC ABG pCO2 17.1 L POC ABG pO2 140 H Sodium Potassium Chloride Carbon Dioxide BUN Creatinine Glucose POC Glucose 279 H Lactic Acid Calcium Phosphorus Magnesium Iron TIBC Transferrin Total Bilirubin Direct Bilirubin AST ALT Alkaline Phosphatase Lactate Dehydrogenase CK-MB (CK-2) Troponin T C-Reactive Protein Total Protein Albumin Triglycerides Cholesterol HDL Cholesterol Vitamin B12 Urine Creatinine Urine Total Protein Heparin-induced Plt Ab Hep Bs Antibody, Quant Crossmatch 12/07/16 12/07/16 12/07/16 06:00 06:00 07:30 WBC RBC Hgb Hct MCV MCHC RDW Plt Count Lymph % (Auto) [place] % (Auto) [place] # Baso # Seg Neutrophils % Seg Neuts % (Manual) Lymphocytes % (Manual) Monocytes % (Manual) Nucleated RBC % Seg Neutrophils # Seg Neutrophils # Man Lymphocytes # (Manual) Monocytes # (Manual) Percent Retic Haptoglobin PT INR Fibrinogen D-Dimer POC ABG pH POC ABG pCO2 POC ABG pO2 Sodium Potassium Chloride Carbon Dioxide BUN Creatinine Glucose POC Glucose Lactic Acid 6.90 H* Calcium Phosphorus 6.80 H Magnesium Iron TIBC Transferrin Total Bilirubin Direct Bilirubin AST ALT Alkaline Phosphatase Lactate Dehydrogenase CK-MB (CK-2) Troponin T C-Reactive Protein 39.40 H Total Protein Albumin Triglycerides Cholesterol HDL Cholesterol Vitamin B12 Urine Creatinine Urine Total Protein Heparin-induced Plt Ab Hep Bs Antibody, Quant Crossmatch 12/07/16 12/07/16 12/07/16 08:40 10:53 14:31 WBC RBC Hgb Hct MCV MCHC RDW Plt Count Lymph % (Auto) [place] % (Auto) [place] # Baso # Seg Neutrophils % Seg Neuts % (Manual) Lymphocytes % (Manual) Monocytes % (Manual) Nucleated RBC % Seg Neutrophils # Seg Neutrophils # Man Lymphocytes # (Manual) Monocytes # (Manual) Percent Retic Haptoglobin PT INR Fibrinogen D-Dimer POC ABG pH POC ABG pCO2 POC ABG pO2 Sodium Potassium 7.0 H* D Chloride 112.4 H Carbon Dioxide 8 L* BUN 61 H Creatinine 5.1 H Glucose 213 H POC Glucose 353 H 52 L Lactic Acid Calcium 5.8 L* Phosphorus Magnesium Iron TIBC Transferrin Total Bilirubin Direct Bilirubin AST ALT Alkaline Phosphatase Lactate Dehydrogenase CK-MB (CK-2) Troponin T C-Reactive Protein Total Protein Albumin Triglycerides Cholesterol HDL Cholesterol Vitamin B12 Urine Creatinine Urine Total Protein Heparin-induced Plt Ab Hep Bs Antibody, Quant Crossmatch 12/07/16 12/07/16 12/07/16 14:45 15:33 16:22 WBC RBC Hgb Hct MCV MCHC RDW Plt Count Lymph % (Auto) [place] % (Auto) [place] # Baso # Seg Neutrophils % Seg Neuts % (Manual) Lymphocytes % (Manual) Monocytes % (Manual) Nucleated RBC % Seg Neutrophils # Seg Neutrophils # Man Lymphocytes # (Manual) Monocytes # (Manual) Percent Retic Haptoglobin PT 17.5 H INR 1.44 H Fibrinogen D-Dimer POC ABG pH POC ABG pCO2 POC ABG pO2 Sodium Potassium Chloride Carbon Dioxide BUN Creatinine Glucose POC Glucose < 40 L 118 H Lactic Acid Calcium Phosphorus Magnesium Iron TIBC Transferrin Total Bilirubin Direct Bilirubin AST ALT Alkaline Phosphatase Lactate Dehydrogenase CK-MB (CK-2) Troponin T C-Reactive Protein Total Protein Albumin Triglycerides Cholesterol HDL Cholesterol Vitamin B12 Urine Creatinine Urine Total Protein Heparin-induced Plt Ab Hep Bs Antibody, Quant Crossmatch 12/07/16 12/07/16 12/07/16 21:35 21:35 21:58 WBC RBC Hgb Hct MCV MCHC RDW Plt Count Lymph % (Auto) [place] % (Auto) [place] # Baso # Seg Neutrophils % Seg Neuts % (Manual) Lymphocytes % (Manual) Monocytes % (Manual) Nucleated RBC % Seg Neutrophils # Seg Neutrophils # Man Lymphocytes # (Manual) Monocytes # (Manual) Percent Retic Haptoglobin PT INR Fibrinogen D-Dimer POC ABG pH POC ABG pCO2 POC ABG pO2 Sodium 150 H Potassium 3.3 L D Chloride 111.4 H Carbon Dioxide 21 L D BUN 22 H Creatinine 2.6 H Glucose 23 L* POC Glucose < 40 L Lactic Acid Calcium Phosphorus Magnesium Iron TIBC Transferrin Total Bilirubin 1.40 H Direct Bilirubin 0.9 H AST 94 H ALT 142 H Alkaline Phosphatase 249 H Lactate Dehydrogenase CK-MB (CK-2) Troponin T C-Reactive Protein Total Protein 4.6 L D Albumin 2.1 L Triglycerides Cholesterol HDL Cholesterol Vitamin B12 Urine Creatinine Urine Total Protein Heparin-induced Plt Ab Hep Bs Antibody, Quant Crossmatch 12/07/16 12/08/16 12/08/16 23:31 04:43 04:50 WBC RBC 2.35 L Hgb 6.6 L Hct 20.1 L MCV MCHC RDW 17.8 H Plt Count 48 L Lymph % (Auto) [place] % (Auto) [place] # Baso # Seg Neutrophils % Seg Neuts % (Manual) Lymphocytes % (Manual) Monocytes % (Manual) Nucleated RBC % Seg Neutrophils # Seg Neutrophils # Man Lymphocytes # (Manual) 0.9 L Monocytes # (Manual) Percent Retic Haptoglobin PT INR Fibrinogen D-Dimer POC ABG pH 7.586 H POC ABG pCO2 17.7 L POC ABG pO2 150 H Sodium Potassium Chloride Carbon Dioxide BUN Creatinine Glucose POC Glucose 42 L Lactic Acid Calcium Phosphorus Magnesium Iron TIBC Transferrin Total Bilirubin Direct Bilirubin AST ALT Alkaline Phosphatase Lactate Dehydrogenase CK-MB (CK-2) Troponin T C-Reactive Protein Total Protein Albumin Triglycerides Cholesterol HDL Cholesterol Vitamin B12 Urine Creatinine Urine Total Protein Heparin-induced Plt Ab Hep Bs Antibody, Quant Crossmatch 12/08/16 12/08/16 12/08/16 04:50 04:59 06:54 WBC RBC Hgb Hct MCV MCHC RDW Plt Count Lymph % (Auto) [place] % (Auto) [place] # Baso # Seg Neutrophils % Seg Neuts % (Manual) Lymphocytes % (Manual) Monocytes % (Manual) Nucleated RBC % Seg Neutrophils # Seg Neutrophils # Man Lymphocytes # (Manual) Monocytes # (Manual) Percent Retic Haptoglobin PT INR Fibrinogen D-Dimer POC ABG pH POC ABG pCO2 POC ABG pO2 Sodium 149 H Potassium 3.2 L Chloride 111.8 H Carbon Dioxide 17 L BUN 26 H Creatinine 3.4 H Glucose 163 H POC Glucose 204 H 203 H Lactic Acid Calcium 7.7 L Phosphorus 2.40 L D Magnesium Iron TIBC Transferrin Total Bilirubin Direct Bilirubin AST ALT Alkaline Phosphatase Lactate Dehydrogenase CK-MB (CK-2) Troponin T C-Reactive Protein Total Protein Albumin Triglycerides Cholesterol HDL Cholesterol Vitamin B12 Urine Creatinine Urine Total Protein Heparin-induced Plt Ab Hep Bs Antibody, Quant Crossmatch 12/08/16 12/08/16 12/08/16 08:04 08:46 08:46 WBC RBC Hgb Hct MCV MCHC RDW Plt Count Lymph % (Auto) [place] % (Auto) [place] # Baso # Seg Neutrophils % Seg Neuts % (Manual) Lymphocytes % (Manual) Monocytes % (Manual) Nucleated RBC % Seg Neutrophils # Seg Neutrophils # Man Lymphocytes # (Manual) Monocytes # (Manual) Percent Retic Haptoglobin PT INR Fibrinogen D-Dimer POC ABG pH POC ABG pCO2 POC ABG pO2 Sodium 147 H Potassium 2.9 L* Chloride 110.6 H Carbon Dioxide 17 L BUN 28 H Creatinine 3.6 H Glucose 127 H POC Glucose 205 H Lactic Acid Calcium 7.3 L Phosphorus Magnesium Iron TIBC Transferrin Total Bilirubin Direct Bilirubin AST ALT Alkaline Phosphatase Lactate Dehydrogenase CK-MB (CK-2) Troponin T C-Reactive Protein Total Protein Albumin Triglycerides Cholesterol HDL Cholesterol Vitamin B12 Urine Creatinine Urine Total Protein Heparin-induced Plt Ab Hep Bs Antibody, Quant Crossmatch See Detail 12/08/16 12/08/16 12/08/16 12:36 19:00 19:00 WBC RBC Hgb Hct MCV MCHC RDW Plt Count Lymph % (Auto) [place] % (Auto) [place] # Baso # Seg Neutrophils % Seg Neuts % (Manual) Lymphocytes % (Manual) Monocytes % (Manual) Nucleated RBC % Seg Neutrophils # Seg Neutrophils # Man Lymphocytes # (Manual) Monocytes # (Manual) Percent Retic Haptoglobin PT 15.3 H INR 1.22 H Fibrinogen 563 H D-Dimer 5507.36 H POC ABG pH POC ABG pCO2 POC ABG pO2 Sodium Potassium Chloride Carbon Dioxide 21 L BUN Creatinine 1.7 H D Glucose 155 H POC Glucose 181 H Lactic Acid Calcium Phosphorus Magnesium Iron TIBC Transferrin Total Bilirubin Direct Bilirubin AST ALT Alkaline Phosphatase Lactate Dehydrogenase CK-MB (CK-2) Troponin T C-Reactive Protein Total Protein Albumin Triglycerides Cholesterol HDL Cholesterol Vitamin B12 Urine Creatinine Urine Total Protein Heparin-induced Plt Ab Hep Bs Antibody, Quant Crossmatch 12/08/16 12/08/16 12/08/16 19:00 19:00 21:30 WBC RBC 2.76 L Hgb 7.8 L Hct 23.7 L MCV MCHC RDW 17.0 H Plt Count 38 L Lymph % (Auto) [place] % (Auto) [place] # Baso # Seg Neutrophils % Seg Neuts % (Manual) Lymphocytes % (Manual) Monocytes % (Manual) Nucleated RBC % Seg Neutrophils # Seg Neutrophils # Man Lymphocytes # (Manual) Monocytes # (Manual) Percent Retic Haptoglobin 271 H PT INR Fibrinogen D-Dimer POC ABG pH POC ABG pCO2 POC ABG pO2 Sodium Potassium Chloride Carbon Dioxide BUN Creatinine Glucose POC Glucose Lactic Acid Calcium Phosphorus Magnesium Iron TIBC Transferrin Total Bilirubin Direct Bilirubin AST ALT Alkaline Phosphatase Lactate Dehydrogenase 382 H CK-MB (CK-2) Troponin T C-Reactive Protein Total Protein Albumin Triglycerides Cholesterol HDL Cholesterol Vitamin B12 Urine Creatinine Urine Total Protein Heparin-induced Plt Ab Hep Bs Antibody, Quant Crossmatch 12/08/16 12/08/16 12/09/16 23:32 23:44 05:22 WBC RBC Hgb Hct MCV MCHC RDW Plt Count Lymph % (Auto) [place] % (Auto) [place] # Baso # Seg Neutrophils % Seg Neuts % (Manual) Lymphocytes % (Manual) Monocytes % (Manual) Nucleated RBC % Seg Neutrophils # Seg Neutrophils # Man Lymphocytes # (Manual) Monocytes # (Manual) Percent Retic Haptoglobin PT INR Fibrinogen D-Dimer POC ABG pH 7.498 H POC ABG pCO2 25.2 L POC ABG pO2 137 H Sodium Potassium Chloride Carbon Dioxide BUN Creatinine Glucose POC Glucose 311 H 113 H Lactic Acid Calcium Phosphorus Magnesium Iron TIBC Transferrin Total Bilirubin Direct Bilirubin AST ALT Alkaline Phosphatase Lactate Dehydrogenase CK-MB (CK-2) Troponin T C-Reactive Protein Total Protein Albumin Triglycerides Cholesterol HDL Cholesterol Vitamin B12 Urine Creatinine Urine Total Protein Heparin-induced Plt Ab Hep Bs Antibody, Quant Crossmatch 12/09/16 12/09/16 12/09/16 06:00 11:29 11:59 WBC RBC Hgb Hct MCV MCHC RDW Plt Count Lymph % (Auto) [place] % (Auto) [place] # Baso # Seg Neutrophils % Seg Neuts % (Manual) Lymphocytes % (Manual) Monocytes % (Manual) Nucleated RBC % Seg Neutrophils # Seg Neutrophils # Man Lymphocytes # (Manual) Monocytes # (Manual) Percent Retic 0.23 L Haptoglobin PT INR Fibrinogen D-Dimer POC ABG pH POC ABG pCO2 POC ABG pO2 Sodium Potassium Chloride 110.2 H Carbon Dioxide 18 L BUN 19 H Creatinine 2.5 H Glucose 105 H POC Glucose 254 H Lactic Acid Calcium Phosphorus 2.00 L Magnesium Iron TIBC Transferrin Total Bilirubin Direct Bilirubin AST ALT Alkaline Phosphatase Lactate Dehydrogenase CK-MB (CK-2) Troponin T C-Reactive Protein Total Protein Albumin Triglycerides Cholesterol HDL Cholesterol Vitamin B12 Urine Creatinine Urine Total Protein Heparin-induced Plt Ab Hep Bs Antibody, Quant Crossmatch 12/09/16 12/09/16 12/09/16 12:02 13:27 13:27 WBC RBC Hgb Hct MCV MCHC RDW Plt Count Lymph % (Auto) [place] % (Auto) [place] # Baso # Seg Neutrophils % Seg Neuts % (Manual) Lymphocytes % (Manual) Monocytes % (Manual) Nucleated RBC % Seg Neutrophils # Seg Neutrophils # Man Lymphocytes # (Manual) Monocytes # (Manual) Percent Retic Haptoglobin PT INR Fibrinogen D-Dimer POC ABG pH 7.326 L POC ABG pCO2 POC ABG pO2 115 H Sodium Potassium Chloride Carbon Dioxide BUN Creatinine Glucose POC Glucose Lactic Acid Calcium Phosphorus Magnesium Iron 15 L TIBC 134 L Transferrin Total Bilirubin Direct Bilirubin AST ALT Alkaline Phosphatase Lactate Dehydrogenase CK-MB (CK-2) Troponin T C-Reactive Protein Total Protein Albumin Triglycerides Cholesterol HDL Cholesterol Vitamin B12 > 2000 H Urine Creatinine Urine Total Protein Heparin-induced Plt Ab Hep Bs Antibody, Quant Crossmatch 12/09/16 12/09/16 12/09/16 13:27 13:27 16:28 WBC RBC Hgb Hct MCV MCHC RDW Plt Count Lymph % (Auto) [place] % (Auto) [place] # Baso # Seg Neutrophils % Seg Neuts % (Manual) Lymphocytes % (Manual) Monocytes % (Manual) Nucleated RBC % Seg Neutrophils # Seg Neutrophils # Man Lymphocytes # (Manual) Monocytes # (Manual) Percent Retic Haptoglobin PT INR Fibrinogen D-Dimer POC ABG pH POC ABG pCO2 POC ABG pO2 Sodium Potassium Chloride Carbon Dioxide BUN Creatinine Glucose POC Glucose 199 H Lactic Acid Calcium Phosphorus Magnesium Iron TIBC Transferrin Total Bilirubin Direct Bilirubin AST ALT Alkaline Phosphatase Lactate Dehydrogenase CK-MB (CK-2) Troponin T C-Reactive Protein Total Protein Albumin Triglycerides Cholesterol HDL Cholesterol Vitamin B12 Urine Creatinine Urine Total Protein Heparin-induced Plt Ab Weak positive H Hep Bs Antibody, Quant <5 L Crossmatch 12/09/16 12/09/16 12/10/16 23:27 Unknown 05:36 WBC 11.3 H RBC 2.92 L Hgb 8.4 L Hct 25.3 L MCV MCHC RDW 16.9 H Plt Count 31 L Lymph % (Auto) [place] % (Auto) [place] # Baso # Seg Neutrophils % Seg Neuts % (Manual) Lymphocytes % (Manual) Monocytes % (Manual) Nucleated RBC % Seg Neutrophils # Seg Neutrophils # Man Lymphocytes # (Manual) Monocytes # (Manual) Percent Retic Haptoglobin PT INR Fibrinogen D-Dimer POC ABG pH POC ABG pCO2 POC ABG pO2 Sodium Potassium Chloride Carbon Dioxide BUN Creatinine Glucose POC Glucose 247 H 248 H Lactic Acid Calcium Phosphorus Magnesium Iron TIBC Transferrin Total Bilirubin Direct Bilirubin AST ALT Alkaline Phosphatase Lactate Dehydrogenase CK-MB (CK-2) Troponin T C-Reactive Protein Total Protein Albumin Triglycerides Cholesterol HDL Cholesterol Vitamin B12 Urine Creatinine Urine Total Protein Heparin-induced Plt Ab Hep Bs Antibody, Quant Crossmatch 12/10/16 12/10/16 12/10/16 09:55 09:55 11:49 WBC 21.2 H RBC 3.37 L Hgb 9.6 L Hct 29.5 L MCV MCHC RDW 16.3 H Plt Count 102 L D Lymph % (Auto) [place] % (Auto) [place] # Baso # Seg Neutrophils % Seg Neuts % (Manual) Lymphocytes % (Manual) Monocytes % (Manual) Nucleated RBC % Seg Neutrophils # Seg Neutrophils # Man Lymphocytes # (Manual) Monocytes # (Manual) Percent Retic Haptoglobin PT INR Fibrinogen D-Dimer POC ABG pH POC ABG pCO2 POC ABG pO2 Sodium Potassium Chloride 107.4 H Carbon Dioxide 21 L BUN 37 H Creatinine 4.2 H D Glucose 174 H POC Glucose 265 H Lactic Acid Calcium Phosphorus Magnesium Iron TIBC Transferrin Total Bilirubin Direct Bilirubin AST ALT Alkaline Phosphatase Lactate Dehydrogenase CK-MB (CK-2) Troponin T C-Reactive Protein Total Protein Albumin Triglycerides Cholesterol HDL Cholesterol Vitamin B12 Urine Creatinine Urine Total Protein Heparin-induced Plt Ab Hep Bs Antibody, Quant Crossmatch 12/10/16 12/10/16 12/11/16 17:56 23:44 04:30 WBC 23.5 H RBC 3.46 L Hgb 9.7 L Hct 30.1 L MCV MCHC RDW 16.4 H Plt Count 115 L Lymph % (Auto) [place] % (Auto) [place] # Baso # Seg Neutrophils % Seg Neuts % (Manual) 84.0 H Lymphocytes % (Manual) 5.0 L Monocytes % (Manual) 10.0 H Nucleated RBC % 1.0 H Seg Neutrophils # Seg Neutrophils # Man 19.7 H Lymphocytes # (Manual) Monocytes # (Manual) 2.4 H Percent Retic Haptoglobin PT INR Fibrinogen D-Dimer POC ABG pH POC ABG pCO2 POC ABG pO2 Sodium Potassium Chloride Carbon Dioxide BUN Creatinine Glucose POC Glucose 118 H 378 H Lactic Acid Calcium Phosphorus Magnesium Iron TIBC Transferrin Total Bilirubin Direct Bilirubin AST ALT Alkaline Phosphatase Lactate Dehydrogenase CK-MB (CK-2) Troponin T C-Reactive Protein Total Protein Albumin Triglycerides Cholesterol HDL Cholesterol Vitamin B12 Urine Creatinine Urine Total Protein Heparin-induced Plt Ab Hep Bs Antibody, Quant Crossmatch 12/11/16 12/11/16 12/11/16 04:30 05:33 12:48 WBC RBC Hgb Hct MCV MCHC RDW Plt Count Lymph % (Auto) [place] % (Auto) [place] # Baso # Seg Neutrophils % Seg Neuts % (Manual) Lymphocytes % (Manual) Monocytes % (Manual) Nucleated RBC % Seg Neutrophils # Seg Neutrophils # Man Lymphocytes # (Manual) Monocytes # (Manual) Percent Retic Haptoglobin PT INR Fibrinogen D-Dimer POC ABG pH POC ABG pCO2 POC ABG pO2 Sodium Potassium Chloride Carbon Dioxide 21 L BUN 50 H Creatinine 4.8 H Glucose 303 H POC Glucose 335 H 325 H Lactic Acid Calcium 8.2 L Phosphorus Magnesium Iron TIBC Transferrin Total Bilirubin Direct Bilirubin AST ALT Alkaline Phosphatase Lactate Dehydrogenase CK-MB (CK-2) Troponin T C-Reactive Protein Total Protein Albumin Triglycerides Cholesterol HDL Cholesterol Vitamin B12 Urine Creatinine Urine Total Protein Heparin-induced Plt Ab Hep Bs Antibody, Quant Crossmatch 12/11/16 12/11/16 12/12/16 17:49 21:16 00:49 WBC RBC Hgb Hct MCV MCHC RDW Plt Count Lymph % (Auto) [place] % (Auto) [place] # Baso # Seg Neutrophils % Seg Neuts % (Manual) Lymphocytes % (Manual) Monocytes % (Manual) Nucleated RBC % Seg Neutrophils # Seg Neutrophils # Man Lymphocytes # (Manual) Monocytes # (Manual) Percent Retic Haptoglobin PT INR Fibrinogen D-Dimer POC ABG pH POC ABG pCO2 POC ABG pO2 Sodium Potassium Chloride Carbon Dioxide BUN Creatinine Glucose POC Glucose 368 H 162 H 225 H Lactic Acid Calcium Phosphorus Magnesium Iron TIBC Transferrin Total Bilirubin Direct Bilirubin AST ALT Alkaline Phosphatase Lactate Dehydrogenase CK-MB (CK-2) Troponin T C-Reactive Protein Total Protein Albumin Triglycerides Cholesterol HDL Cholesterol Vitamin B12 Urine Creatinine Urine Total Protein Heparin-induced Plt Ab Hep Bs Antibody, Quant Crossmatch 12/12/16 12/12/16 12/12/16 06:09 07:52 08:18 WBC 24.1 H RBC 3.16 L Hgb 9.0 L Hct 29.4 L MCV MCHC RDW 16.6 H Plt Count 96 L Lymph % (Auto) [place] % (Auto) [place] # Baso # Seg Neutrophils % Seg Neuts % (Manual) 75.0 H Lymphocytes % (Manual) Monocytes % (Manual) Nucleated RBC % Seg Neutrophils # Seg Neutrophils # Man 18.1 H Lymphocytes # (Manual) Monocytes # (Manual) 1.4 H Percent Retic Haptoglobin PT INR Fibrinogen D-Dimer POC ABG pH POC ABG pCO2 POC ABG pO2 Sodium Potassium Chloride Carbon Dioxide BUN Creatinine Glucose POC Glucose 428 H 418 H Lactic Acid Calcium Phosphorus Magnesium Iron TIBC Transferrin Total Bilirubin Direct Bilirubin AST ALT Alkaline Phosphatase Lactate Dehydrogenase CK-MB (CK-2) Troponin T C-Reactive Protein Total Protein Albumin Triglycerides Cholesterol HDL Cholesterol Vitamin B12 Urine Creatinine Urine Total Protein Heparin-induced Plt Ab Hep Bs Antibody, Quant Crossmatch 12/12/16 12/12/16 12/12/16 08:18 11:31 17:03 WBC RBC Hgb Hct MCV MCHC RDW Plt Count Lymph % (Auto) [place] % (Auto) [place] # Baso # Seg Neutrophils % Seg Neuts % (Manual) Lymphocytes % (Manual) Monocytes % (Manual) Nucleated RBC % Seg Neutrophils # Seg Neutrophils # Man Lymphocytes # (Manual) Monocytes # (Manual) Percent Retic Haptoglobin PT INR Fibrinogen D-Dimer POC ABG pH POC ABG pCO2 POC ABG pO2 Sodium Potassium Chloride Carbon Dioxide 12 L D BUN 41 H Creatinine 4.5 H Glucose 369 H POC Glucose 212 H 422 H Lactic Acid Calcium Phosphorus Magnesium Iron TIBC Transferrin Total Bilirubin Direct Bilirubin AST ALT Alkaline Phosphatase Lactate Dehydrogenase CK-MB (CK-2) Troponin T C-Reactive Protein Total Protein Albumin Triglycerides Cholesterol HDL Cholesterol Vitamin B12 Urine Creatinine Urine Total Protein Heparin-induced Plt Ab Hep Bs Antibody, Quant Crossmatch 12/12/16 12/13/16 12/13/16 21:35 07:49 07:49 WBC 24.0 H RBC 2.90 L Hgb 8.3 L Hct 25.8 L MCV MCHC RDW 15.5 H Plt Count 120 L Lymph % (Auto) [place] % (Auto) [place] # Baso # Seg Neutrophils % Seg Neuts % (Manual) 89.0 H Lymphocytes % (Manual) 7.0 L Monocytes % (Manual) Nucleated RBC % Seg Neutrophils # Seg Neutrophils # Man 21.4 H Lymphocytes # (Manual) Monocytes # (Manual) Percent Retic Haptoglobin PT INR Fibrinogen D-Dimer POC ABG pH POC ABG pCO2 POC ABG pO2 Sodium Potassium 3.2 L Chloride Carbon Dioxide BUN 21 H Creatinine 3.0 H Glucose 21 L* POC Glucose 185 H Lactic Acid Calcium Phosphorus Magnesium Iron TIBC Transferrin Total Bilirubin Direct Bilirubin AST ALT Alkaline Phosphatase Lactate Dehydrogenase CK-MB (CK-2) Troponin T C-Reactive Protein Total Protein Albumin Triglycerides Cholesterol HDL Cholesterol Vitamin B12 Urine Creatinine Urine Total Protein Heparin-induced Plt Ab Hep Bs Antibody, Quant Crossmatch 12/13/16 12/13/16 12/13/16 09:57 11:02 16:52 WBC RBC Hgb Hct MCV MCHC RDW Plt Count Lymph % (Auto) [place] % (Auto) [place] # Baso # Seg Neutrophils % Seg Neuts % (Manual) Lymphocytes % (Manual) Monocytes % (Manual) Nucleated RBC % Seg Neutrophils # Seg Neutrophils # Man Lymphocytes # (Manual) Monocytes # (Manual) Percent Retic Haptoglobin PT INR Fibrinogen D-Dimer POC ABG pH POC ABG pCO2 POC ABG pO2 Sodium Potassium Chloride Carbon Dioxide BUN Creatinine Glucose POC Glucose < 40 L 231 H 312 H Lactic Acid Calcium Phosphorus Magnesium Iron TIBC Transferrin Total Bilirubin Direct Bilirubin AST ALT Alkaline Phosphatase Lactate Dehydrogenase CK-MB (CK-2) Troponin T C-Reactive Protein Total Protein Albumin Triglycerides Cholesterol HDL Cholesterol Vitamin B12 Urine Creatinine Urine Total Protein Heparin-induced Plt Ab Hep Bs Antibody, Quant Crossmatch 12/13/16 12/14/16 12/14/16 21:32 07:07 07:07 WBC 16.7 H RBC 2.80 L Hgb 7.9 L Hct 24.7 L MCV MCHC RDW 15.4 H Plt Count 131 L Lymph % (Auto) 13.1 L [place] % (Auto) [place] # 1.2 H Baso # Seg Neutrophils % 78.3 H Seg Neuts % (Manual) Lymphocytes % (Manual) Monocytes % (Manual) Nucleated RBC % Seg Neutrophils # 13.1 H Seg Neutrophils # Man Lymphocytes # (Manual) Monocytes # (Manual) Percent Retic Haptoglobin PT INR Fibrinogen D-Dimer POC ABG pH POC ABG pCO2 POC ABG pO2 Sodium Potassium 3.5 L Chloride Carbon Dioxide BUN 30 H Creatinine 4.6 H D Glucose 181 H POC Glucose 275 H Lactic Acid Calcium 7.7 L Phosphorus Magnesium Iron TIBC Transferrin Total Bilirubin Direct Bilirubin AST ALT Alkaline Phosphatase Lactate Dehydrogenase CK-MB (CK-2) Troponin T C-Reactive Protein Total Protein Albumin Triglycerides Cholesterol HDL Cholesterol Vitamin B12 Urine Creatinine Urine Total Protein Heparin-induced Plt Ab Hep Bs Antibody, Quant Crossmatch 12/14/16 12/14/16 12/14/16 07:46 11:35 16:24 WBC RBC Hgb Hct MCV MCHC RDW Plt Count Lymph % (Auto) [place] % (Auto) [place] # Baso # Seg Neutrophils % Seg Neuts % (Manual) Lymphocytes % (Manual) Monocytes % (Manual) Nucleated RBC % Seg Neutrophils # Seg Neutrophils # Man Lymphocytes # (Manual) Monocytes # (Manual) Percent Retic Haptoglobin PT INR Fibrinogen D-Dimer POC ABG pH POC ABG pCO2 POC ABG pO2 Sodium Potassium Chloride Carbon Dioxide BUN Creatinine Glucose POC Glucose 189 H 254 H 466 H Lactic Acid Calcium Phosphorus Magnesium Iron TIBC Transferrin Total Bilirubin Direct Bilirubin AST ALT Alkaline Phosphatase Lactate Dehydrogenase CK-MB (CK-2) Troponin T C-Reactive Protein Total Protein Albumin Triglycerides Cholesterol HDL Cholesterol Vitamin B12 Urine Creatinine Urine Total Protein Heparin-induced Plt Ab Hep Bs Antibody, Quant Crossmatch 12/14/16 12/15/16 12/15/16 20:57 06:27 07:46 WBC RBC Hgb Hct MCV MCHC RDW Plt Count Lymph % (Auto) [place] % (Auto) [place] # Baso # Seg Neutrophils % Seg Neuts % (Manual) Lymphocytes % (Manual) Monocytes % (Manual) Nucleated RBC % Seg Neutrophils # Seg Neutrophils # Man Lymphocytes # (Manual) Monocytes # (Manual) Percent Retic Haptoglobin PT INR Fibrinogen D-Dimer POC ABG pH POC ABG pCO2 POC ABG pO2 Sodium Potassium Chloride Carbon Dioxide BUN Creatinine Glucose POC Glucose 301 H 183 H 231 H Lactic Acid Calcium Phosphorus Magnesium Iron TIBC Transferrin Total Bilirubin Direct Bilirubin AST ALT Alkaline Phosphatase Lactate Dehydrogenase CK-MB (CK-2) Troponin T C-Reactive Protein Total Protein Albumin Triglycerides Cholesterol HDL Cholesterol Vitamin B12 Urine Creatinine Urine Total Protein Heparin-induced Plt Ab Hep Bs Antibody, Quant Crossmatch 12/15/16 12/15/16 12/15/16 11:38 15:34 20:51 WBC RBC Hgb Hct MCV MCHC RDW Plt Count Lymph % (Auto) [place] % (Auto) [place] # Baso # Seg Neutrophils % Seg Neuts % (Manual) Lymphocytes % (Manual) Monocytes % (Manual) Nucleated RBC % Seg Neutrophils # Seg Neutrophils # Man Lymphocytes # (Manual) Monocytes # (Manual) Percent Retic Haptoglobin PT INR Fibrinogen D-Dimer POC ABG pH POC ABG pCO2 POC ABG pO2 Sodium Potassium Chloride Carbon Dioxide BUN Creatinine Glucose POC Glucose 375 H 313 H 274 H Lactic Acid Calcium Phosphorus Magnesium Iron TIBC Transferrin Total Bilirubin Direct Bilirubin AST ALT Alkaline Phosphatase Lactate Dehydrogenase CK-MB (CK-2) Troponin T C-Reactive Protein Total Protein Albumin Triglycerides Cholesterol HDL Cholesterol Vitamin B12 Urine Creatinine Urine Total Protein Heparin-induced Plt Ab Hep Bs Antibody, Quant Crossmatch 12/16/16 12/16/16 12/16/16 08:26 09:12 17:13 WBC RBC Hgb Hct MCV MCHC RDW Plt Count Lymph % (Auto) [place] % (Auto) [place] # Baso # Seg Neutrophils % Seg Neuts % (Manual) Lymphocytes % (Manual) Monocytes % (Manual) Nucleated RBC % Seg Neutrophils # Seg Neutrophils # Man Lymphocytes # (Manual) Monocytes # (Manual) Percent Retic Haptoglobin PT INR Fibrinogen D-Dimer POC ABG pH POC ABG pCO2 POC ABG pO2 Sodium Potassium Chloride Carbon Dioxide BUN Creatinine Glucose POC Glucose 59 L 127 H > 500 H Lactic Acid Calcium Phosphorus Magnesium Iron TIBC Transferrin Total Bilirubin Direct Bilirubin AST ALT Alkaline Phosphatase Lactate Dehydrogenase CK-MB (CK-2) Troponin T C-Reactive Protein Total Protein Albumin Triglycerides Cholesterol HDL Cholesterol Vitamin B12 Urine Creatinine Urine Total Protein Heparin-induced Plt Ab Hep Bs Antibody, Quant Crossmatch 12/16/16 12/16/16 12/16/16 22:59 Unknown Unknown WBC 17.2 H RBC 2.83 L Hgb 7.9 L Hct 24.4 L MCV MCHC RDW Plt Count Lymph % (Auto) 9.2 L [place] % (Auto) [place] # 0.9 H Baso # Seg Neutrophils % 84.1 H Seg Neuts % (Manual) Lymphocytes % (Manual) Monocytes % (Manual) Nucleated RBC % Seg Neutrophils # 14.5 H Seg Neutrophils # Man Lymphocytes # (Manual) Monocytes # (Manual) Percent Retic Haptoglobin PT INR Fibrinogen D-Dimer POC ABG pH POC ABG pCO2 POC ABG pO2 Sodium Potassium Chloride Carbon Dioxide BUN 43 H Creatinine 5.4 H Glucose 131 H POC Glucose 320 H Lactic Acid Calcium 6.9 L Phosphorus Magnesium Iron TIBC Transferrin Total Bilirubin Direct Bilirubin AST ALT Alkaline Phosphatase Lactate Dehydrogenase CK-MB (CK-2) Troponin T C-Reactive Protein Total Protein Albumin Triglycerides Cholesterol HDL Cholesterol Vitamin B12 Urine Creatinine Urine Total Protein Heparin-induced Plt Ab Hep Bs Antibody, Quant Crossmatch 12/17/16 12/17/16 12/17/16 08:26 08:56 09:52 WBC RBC Hgb Hct MCV MCHC RDW Plt Count Lymph % (Auto) [place] % (Auto) [place] # Baso # Seg Neutrophils % Seg Neuts % (Manual) Lymphocytes % (Manual) Monocytes % (Manual) Nucleated RBC % Seg Neutrophils # Seg Neutrophils # Man Lymphocytes # (Manual) Monocytes # (Manual) Percent Retic Haptoglobin PT INR Fibrinogen D-Dimer POC ABG pH POC ABG pCO2 POC ABG pO2 Sodium Potassium Chloride Carbon Dioxide BUN Creatinine Glucose POC Glucose < 40 L 40 L 133 H Lactic Acid Calcium Phosphorus Magnesium Iron TIBC Transferrin Total Bilirubin Direct Bilirubin AST ALT Alkaline Phosphatase Lactate Dehydrogenase CK-MB (CK-2) Troponin T C-Reactive Protein Total Protein Albumin Triglycerides Cholesterol HDL Cholesterol Vitamin B12 Urine Creatinine Urine Total Protein Heparin-induced Plt Ab Hep Bs Antibody, Quant Crossmatch 12/17/16 12/17/16 12/17/16 12:51 16:08 21:00 WBC RBC Hgb Hct MCV MCHC RDW Plt Count Lymph % (Auto) [place] % (Auto) [place] # Baso # Seg Neutrophils % Seg Neuts % (Manual) Lymphocytes % (Manual) Monocytes % (Manual) Nucleated RBC % Seg Neutrophils # Seg Neutrophils # Man Lymphocytes # (Manual) Monocytes # (Manual) Percent Retic Haptoglobin PT INR Fibrinogen D-Dimer POC ABG pH POC ABG pCO2 POC ABG pO2 Sodium Potassium Chloride Carbon Dioxide BUN Creatinine Glucose POC Glucose 177 H 303 H 489 H Lactic Acid Calcium Phosphorus Magnesium Iron TIBC Transferrin Total Bilirubin Direct Bilirubin AST ALT Alkaline Phosphatase Lactate Dehydrogenase CK-MB (CK-2) Troponin T C-Reactive Protein Total Protein Albumin Triglycerides Cholesterol HDL Cholesterol Vitamin B12 Urine Creatinine Urine Total Protein Heparin-induced Plt Ab Hep Bs Antibody, Quant Crossmatch 12/17/16 12/17/16 12/18/16 Unknown Unknown 05:50 WBC 16.6 H 15.6 H RBC 2.63 L 2.58 L Hgb 7.5 L 7.3 L Hct 23.3 L 23.0 L MCV MCHC RDW 15.3 H 15.9 H Plt Count Lymph % (Auto) 7.7 L 8.7 L [place] % (Auto) [place] # 0.9 H Baso # Seg Neutrophils % 85.8 H 83.6 H Seg Neuts % (Manual) Lymphocytes % (Manual) Monocytes % (Manual) Nucleated RBC % Seg Neutrophils # 14.3 H 13.0 H Seg Neutrophils # Man Lymphocytes # (Manual) Monocytes # (Manual) Percent Retic Haptoglobin PT INR Fibrinogen D-Dimer POC ABG pH POC ABG pCO2 POC ABG pO2 Sodium Potassium 3.5 L Chloride Carbon Dioxide BUN 47 H Creatinine 5.2 H Glucose 173 H POC Glucose Lactic Acid Calcium 6.9 L Phosphorus Magnesium Iron TIBC Transferrin Total Bilirubin Direct Bilirubin AST ALT Alkaline Phosphatase Lactate Dehydrogenase CK-MB (CK-2) Troponin T C-Reactive Protein Total Protein Albumin Triglycerides Cholesterol HDL Cholesterol Vitamin B12 Urine Creatinine Urine Total Protein Heparin-induced Plt Ab Hep Bs Antibody, Quant Crossmatch 12/18/16 12/18/16 12/18/16 05:50 09:09 16:46 WBC RBC Hgb Hct MCV MCHC RDW Plt Count Lymph % (Auto) [place] % (Auto) [place] # Baso # Seg Neutrophils % Seg Neuts % (Manual) Lymphocytes % (Manual) Monocytes % (Manual) Nucleated RBC % Seg Neutrophils # Seg Neutrophils # Man Lymphocytes # (Manual) Monocytes # (Manual) Percent Retic Haptoglobin PT INR Fibrinogen D-Dimer POC ABG pH POC ABG pCO2 POC ABG pO2 Sodium Potassium Chloride Carbon Dioxide 17 L BUN 46 H Creatinine 5.0 H Glucose 252 H POC Glucose 349 H 324 H Lactic Acid Calcium 6.8 L Phosphorus Magnesium Iron TIBC Transferrin Total Bilirubin Direct Bilirubin AST ALT Alkaline Phosphatase Lactate Dehydrogenase CK-MB (CK-2) Troponin T C-Reactive Protein Total Protein Albumin Triglycerides Cholesterol HDL Cholesterol Vitamin B12 Urine Creatinine Urine Total Protein Heparin-induced Plt Ab Hep Bs Antibody, Quant Crossmatch 12/18/16 12/19/16 12/19/16 21:14 08:12 10:23 WBC 13.7 H RBC 2.60 L Hgb 7.5 L Hct 23.1 L MCV MCHC RDW 15.7 H Plt Count Lymph % (Auto) 9.1 L [place] % (Auto) [place] # 0.9 H Baso # Seg Neutrophils % 82.2 H Seg Neuts % (Manual) Lymphocytes % (Manual) Monocytes % (Manual) Nucleated RBC % Seg Neutrophils # 11.3 H Seg Neutrophils # Man Lymphocytes # (Manual) Monocytes # (Manual) Percent Retic Haptoglobin PT INR Fibrinogen D-Dimer POC ABG pH POC ABG pCO2 POC ABG pO2 Sodium Potassium Chloride Carbon Dioxide BUN Creatinine Glucose POC Glucose 316 H 464 H Lactic Acid Calcium Phosphorus Magnesium Iron TIBC Transferrin Total Bilirubin Direct Bilirubin AST ALT Alkaline Phosphatase Lactate Dehydrogenase CK-MB (CK-2) Troponin T C-Reactive Protein Total Protein Albumin Triglycerides Cholesterol HDL Cholesterol Vitamin B12 Urine Creatinine Urine Total Protein Heparin-induced Plt Ab Hep Bs Antibody, Quant Crossmatch 12/19/16 12/19/16 12/19/16 10:23 11:39 16:00 WBC RBC Hgb Hct MCV MCHC RDW Plt Count Lymph % (Auto) [place] % (Auto) [place] # Baso # Seg Neutrophils % Seg Neuts % (Manual) Lymphocytes % (Manual) Monocytes % (Manual) Nucleated RBC % Seg Neutrophils # Seg Neutrophils # Man Lymphocytes # (Manual) Monocytes # (Manual) Percent Retic Haptoglobin PT INR Fibrinogen D-Dimer POC ABG pH POC ABG pCO2 POC ABG pO2 Sodium Potassium 3.5 L Chloride Carbon Dioxide 14 L BUN 22 H Creatinine 3.2 H Glucose 446 H POC Glucose 344 H 467 H Lactic Acid Calcium 6.9 L Phosphorus 1.70 L D Magnesium Iron TIBC Transferrin Total Bilirubin Direct Bilirubin AST ALT Alkaline Phosphatase Lactate Dehydrogenase CK-MB (CK-2) Troponin T C-Reactive Protein Total Protein Albumin Triglycerides Cholesterol HDL Cholesterol Vitamin B12 Urine Creatinine Urine Total Protein Heparin-induced Plt Ab Hep Bs Antibody, Quant Crossmatch 12/19/16 12/19/16 12/19/16 16:35 16:35 21:16 WBC 19.3 H RBC 2.37 L Hgb 6.9 L Hct 21.8 L MCV MCHC RDW 16.7 H Plt Count Lymph % (Auto) [place] % (Auto) [place] # Baso # Seg Neutrophils % Seg Neuts % (Manual) Lymphocytes % (Manual) Monocytes % (Manual) Nucleated RBC % Seg Neutrophils # Seg Neutrophils # Man Lymphocytes # (Manual) Monocytes # (Manual) Percent Retic Haptoglobin PT INR Fibrinogen D-Dimer POC ABG pH POC ABG pCO2 POC ABG pO2 Sodium Potassium 3.4 L Chloride Carbon Dioxide 17 L BUN 23 H Creatinine 3.2 H Glucose 427 H POC Glucose 397 H Lactic Acid Calcium 6.9 L Phosphorus 2.40 L D Magnesium Iron TIBC Transferrin Total Bilirubin Direct Bilirubin AST ALT Alkaline Phosphatase Lactate Dehydrogenase CK-MB (CK-2) Troponin T C-Reactive Protein Total Protein Albumin Triglycerides Cholesterol HDL Cholesterol Vitamin B12 Urine Creatinine Urine Total Protein Heparin-induced Plt Ab Hep Bs Antibody, Quant Crossmatch 12/20/16 12/20/16 12/20/16 06:00 06:00 07:55 WBC 17.5 H RBC 2.54 L Hgb 7.3 L Hct 23.5 L MCV MCHC RDW 16.4 H Plt Count Lymph % (Auto) 9.0 L [place] % (Auto) [place] # 1.1 H Baso # Seg Neutrophils % 83.0 H Seg Neuts % (Manual) Lymphocytes % (Manual) Monocytes % (Manual) Nucleated RBC % Seg Neutrophils # 14.5 H Seg Neutrophils # Man Lymphocytes # (Manual) Monocytes # (Manual) Percent Retic Haptoglobin PT INR Fibrinogen D-Dimer POC ABG pH POC ABG pCO2 POC ABG pO2 Sodium 136 L Potassium Chloride 92.4 L Carbon Dioxide 15 L BUN Creatinine 2.6 H Glucose 475 H POC Glucose > 500 H Lactic Acid Calcium Phosphorus Magnesium Iron TIBC Transferrin Total Bilirubin Direct Bilirubin AST ALT Alkaline Phosphatase Lactate Dehydrogenase CK-MB (CK-2) Troponin T C-Reactive Protein Total Protein Albumin Triglycerides Cholesterol HDL Cholesterol Vitamin B12 Urine Creatinine Urine Total Protein Heparin-induced Plt Ab Hep Bs Antibody, Quant Crossmatch 12/20/16 12/20/16 12/20/16 11:21 16:01 22:33 WBC RBC Hgb Hct MCV MCHC RDW Plt Count Lymph % (Auto) [place] % (Auto) [place] # Baso # Seg Neutrophils % Seg Neuts % (Manual) Lymphocytes % (Manual) Monocytes % (Manual) Nucleated RBC % Seg Neutrophils # Seg Neutrophils # Man Lymphocytes # (Manual) Monocytes # (Manual) Percent Retic Haptoglobin PT INR Fibrinogen D-Dimer POC ABG pH POC ABG pCO2 POC ABG pO2 Sodium Potassium Chloride Carbon Dioxide BUN Creatinine Glucose POC Glucose > 500 H 446 H > 500 H Lactic Acid Calcium Phosphorus Magnesium Iron TIBC Transferrin Total Bilirubin Direct Bilirubin AST ALT Alkaline Phosphatase Lactate Dehydrogenase CK-MB (CK-2) Troponin T C-Reactive Protein Total Protein Albumin Triglycerides Cholesterol HDL Cholesterol Vitamin B12 Urine Creatinine Urine Total Protein Heparin-induced Plt Ab Hep Bs Antibody, Quant Crossmatch 12/20/16 12/20/16 12/21/16 22:37 23:00 00:48 WBC RBC Hgb Hct MCV MCHC RDW Plt Count Lymph % (Auto) [place] % (Auto) [place] # Baso # Seg Neutrophils % Seg Neuts % (Manual) Lymphocytes % (Manual) Monocytes % (Manual) Nucleated RBC % Seg Neutrophils # Seg Neutrophils # Man Lymphocytes # (Manual) Monocytes # (Manual) Percent Retic Haptoglobin PT INR Fibrinogen D-Dimer POC ABG pH POC ABG pCO2 POC ABG pO2 Sodium 128 L D Potassium Chloride 83.2 L Carbon Dioxide 11 L BUN 32 H Creatinine 3.5 H Glucose 822 H* POC Glucose > 500 H > 500 H Lactic Acid Calcium 8.2 L Phosphorus Magnesium Iron TIBC Transferrin Total Bilirubin Direct Bilirubin AST ALT Alkaline Phosphatase Lactate Dehydrogenase CK-MB (CK-2) Troponin T C-Reactive Protein Total Protein Albumin Triglycerides Cholesterol HDL Cholesterol Vitamin B12 Urine Creatinine Urine Total Protein Heparin-induced Plt Ab Hep Bs Antibody, Quant Crossmatch 12/21/16 12/21/16 12/21/16 03:17 05:00 05:00 WBC 15.7 H RBC 2.32 L Hgb 6.8 L Hct 20.6 L MCV MCHC RDW 16.3 H Plt Count Lymph % (Auto) 11.5 L [place] % (Auto) 7.4 H [place] # 1.2 H Baso # Seg Neutrophils % 78.7 H Seg Neuts % (Manual) Lymphocytes % (Manual) Monocytes % (Manual) Nucleated RBC % Seg Neutrophils # 12.4 H Seg Neutrophils # Man Lymphocytes # (Manual) Monocytes # (Manual) Percent Retic Haptoglobin PT INR Fibrinogen D-Dimer POC ABG pH POC ABG pCO2 POC ABG pO2 Sodium Potassium Chloride 95.3 L Carbon Dioxide 20 L D BUN 32 H Creatinine 3.7 H Glucose 243 H POC Glucose 428 H Lactic Acid Calcium 8.1 L Phosphorus Magnesium Iron TIBC 193.20 L Transferrin 138 L Total Bilirubin Direct Bilirubin AST ALT Alkaline Phosphatase Lactate Dehydrogenase CK-MB (CK-2) Troponin T C-Reactive Protein Total Protein Albumin Triglycerides Cholesterol HDL Cholesterol Vitamin B12 Urine Creatinine Urine Total Protein Heparin-induced Plt Ab Hep Bs Antibody, Quant Crossmatch 12/21/16 12/21/16 12/21/16 05:40 06:49 08:20 WBC RBC Hgb Hct MCV MCHC RDW Plt Count Lymph % (Auto) [place] % (Auto) [place] # Baso # Seg Neutrophils % Seg Neuts % (Manual) Lymphocytes % (Manual) Monocytes % (Manual) Nucleated RBC % Seg Neutrophils # Seg Neutrophils # Man Lymphocytes # (Manual) Monocytes # (Manual) Percent Retic Haptoglobin PT INR Fibrinogen D-Dimer POC ABG pH POC ABG pCO2 POC ABG pO2 Sodium Potassium Chloride Carbon Dioxide BUN Creatinine Glucose POC Glucose 271 H 236 H 222 H Lactic Acid Calcium Phosphorus Magnesium Iron TIBC Transferrin Total Bilirubin Direct Bilirubin AST ALT Alkaline Phosphatase Lactate Dehydrogenase CK-MB (CK-2) Troponin T C-Reactive Protein Total Protein Albumin Triglycerides Cholesterol HDL Cholesterol Vitamin B12 Urine Creatinine Urine Total Protein Heparin-induced Plt Ab Hep Bs Antibody, Quant Crossmatch 12/21/16 12/21/16 12/21/16 16:28 18:26 21:10 WBC RBC Hgb Hct MCV MCHC RDW Plt Count Lymph % (Auto) [place] % (Auto) [place] # Baso # Seg Neutrophils % Seg Neuts % (Manual) Lymphocytes % (Manual) Monocytes % (Manual) Nucleated RBC % Seg Neutrophils # Seg Neutrophils # Man Lymphocytes # (Manual) Monocytes # (Manual) Percent Retic Haptoglobin PT INR Fibrinogen D-Dimer POC ABG pH POC ABG pCO2 POC ABG pO2 Sodium Potassium Chloride Carbon Dioxide BUN Creatinine Glucose POC Glucose < 40 L 62 L 255 H Lactic Acid Calcium Phosphorus Magnesium Iron TIBC Transferrin Total Bilirubin Direct Bilirubin AST ALT Alkaline Phosphatase Lactate Dehydrogenase CK-MB (CK-2) Troponin T C-Reactive Protein Total Protein Albumin Triglycerides Cholesterol HDL Cholesterol Vitamin B12 Urine Creatinine Urine Total Protein Heparin-induced Plt Ab Hep Bs Antibody, Quant Crossmatch 12/22/16 12/22/16 12/22/16 03:38 06:45 06:45 WBC 17.4 H RBC 2.26 L Hgb 6.6 L Hct 20.5 L MCV MCHC RDW 15.7 H Plt Count Lymph % (Auto) 8.1 L [place] % (Auto) [place] # 0.9 H Baso # 0.2 H Seg Neutrophils % 84.3 H Seg Neuts % (Manual) Lymphocytes % (Manual) Monocytes % (Manual) Nucleated RBC % Seg Neutrophils # 14.6 H Seg Neutrophils # Man Lymphocytes # (Manual) Monocytes # (Manual) Percent Retic Haptoglobin PT INR Fibrinogen D-Dimer POC ABG pH POC ABG pCO2 POC ABG pO2 Sodium Potassium 3.3 L Chloride 95.5 L Carbon Dioxide 20 L BUN Creatinine 2.5 H Glucose 308 H POC Glucose 430 H Lactic Acid Calcium 8.2 L Phosphorus Magnesium Iron TIBC Transferrin Total Bilirubin Direct Bilirubin AST ALT Alkaline Phosphatase Lactate Dehydrogenase CK-MB (CK-2) Troponin T C-Reactive Protein Total Protein Albumin Triglycerides Cholesterol HDL Cholesterol Vitamin B12 Urine Creatinine Urine Total Protein Heparin-induced Plt Ab Hep Bs Antibody, Quant Crossmatch 12/22/16 12/22/16 12/22/16 08:31 12:50 15:46 WBC RBC Hgb Hct MCV MCHC RDW Plt Count Lymph % (Auto) [place] % (Auto) [place] # Baso # Seg Neutrophils % Seg Neuts % (Manual) Lymphocytes % (Manual) Monocytes % (Manual) Nucleated RBC % Seg Neutrophils # Seg Neutrophils # Man Lymphocytes # (Manual) Monocytes # (Manual) Percent Retic Haptoglobin PT INR Fibrinogen D-Dimer POC ABG pH POC ABG pCO2 POC ABG pO2 Sodium Potassium Chloride Carbon Dioxide BUN Creatinine Glucose POC Glucose 306 H 391 H Lactic Acid Calcium Phosphorus Magnesium Iron TIBC Transferrin Total Bilirubin Direct Bilirubin AST ALT Alkaline Phosphatase Lactate Dehydrogenase CK-MB (CK-2) Troponin T C-Reactive Protein Total Protein Albumin Triglycerides Cholesterol HDL Cholesterol Vitamin B12 Urine Creatinine Urine Total Protein Heparin-induced Plt Ab Hep Bs Antibody, Quant Crossmatch See Detail 12/22/16 12/22/16 12/23/16 17:13 21:45 06:42 WBC 17.9 H RBC 2.75 L Hgb 8.1 L Hct 24.8 L MCV MCHC RDW 17.1 H Plt Count Lymph % (Auto) [place] % (Auto) [place] # Baso # Seg Neutrophils % Seg Neuts % (Manual) Lymphocytes % (Manual) Monocytes % (Manual) Nucleated RBC % Seg Neutrophils # Seg Neutrophils # Man Lymphocytes # (Manual) Monocytes # (Manual) Percent Retic Haptoglobin PT INR Fibrinogen D-Dimer POC ABG pH POC ABG pCO2 POC ABG pO2 Sodium Potassium Chloride Carbon Dioxide BUN Creatinine Glucose POC Glucose > 500 H 449 H Lactic Acid Calcium Phosphorus Magnesium Iron TIBC Transferrin Total Bilirubin Direct Bilirubin AST ALT Alkaline Phosphatase Lactate Dehydrogenase CK-MB (CK-2) Troponin T C-Reactive Protein Total Protein Albumin Triglycerides Cholesterol HDL Cholesterol Vitamin B12 Urine Creatinine Urine Total Protein Heparin-induced Plt Ab Hep Bs Antibody, Quant Crossmatch 12/23/16 12/23/16 12/23/16 06:42 07:46 11:33 WBC RBC Hgb Hct MCV MCHC RDW Plt Count Lymph % (Auto) [place] % (Auto) [place] # Baso # Seg Neutrophils % Seg Neuts % (Manual) Lymphocytes % (Manual) Monocytes % (Manual) Nucleated RBC % Seg Neutrophils # Seg Neutrophils # Man Lymphocytes # (Manual) Monocytes # (Manual) Percent Retic Haptoglobin PT INR Fibrinogen D-Dimer POC ABG pH POC ABG pCO2 POC ABG pO2 Sodium Potassium 3.5 L Chloride 94.7 L Carbon Dioxide 19 L BUN 22 H Creatinine 2.9 H Glucose 401 H POC Glucose 449 H 298 H Lactic Acid Calcium 8.3 L Phosphorus Magnesium Iron TIBC Transferrin Total Bilirubin Direct Bilirubin AST ALT Alkaline Phosphatase Lactate Dehydrogenase CK-MB (CK-2) Troponin T C-Reactive Protein Total Protein Albumin Triglycerides Cholesterol HDL Cholesterol Vitamin B12 Urine Creatinine Urine Total Protein Heparin-induced Plt Ab Hep Bs Antibody, Quant Crossmatch 12/23/16 12/23/16 12/24/16 18:24 21:30 00:00 WBC RBC Hgb Hct MCV MCHC RDW Plt Count Lymph % (Auto) [place] % (Auto) [place] # Baso # Seg Neutrophils % Seg Neuts % (Manual) Lymphocytes % (Manual) Monocytes % (Manual) Nucleated RBC % Seg Neutrophils # Seg Neutrophils # Man Lymphocytes # (Manual) Monocytes # (Manual) Percent Retic Haptoglobin PT INR Fibrinogen D-Dimer POC ABG pH POC ABG pCO2 POC ABG pO2 Sodium Potassium Chloride Carbon Dioxide BUN Creatinine Glucose POC Glucose 177 H 455 H Lactic Acid Calcium Phosphorus Magnesium Iron TIBC Transferrin Total Bilirubin Direct Bilirubin AST ALT Alkaline Phosphatase Lactate Dehydrogenase CK-MB (CK-2) Troponin T C-Reactive Protein Total Protein Albumin Triglycerides Cholesterol HDL Cholesterol Vitamin B12 Urine Creatinine 239.9 H Urine Total Protein Heparin-induced Plt Ab Hep Bs Antibody, Quant Crossmatch 12/24/16 12/24/16 12/24/16 05:00 16:11 18:55 WBC RBC Hgb Hct MCV MCHC RDW Plt Count Lymph % (Auto) [place] % (Auto) [place] # Baso # Seg Neutrophils % Seg Neuts % (Manual) Lymphocytes % (Manual) Monocytes % (Manual) Nucleated RBC % Seg Neutrophils # Seg Neutrophils # Man Lymphocytes # (Manual) Monocytes # (Manual) Percent Retic Haptoglobin PT INR Fibrinogen D-Dimer POC ABG pH POC ABG pCO2 POC ABG pO2 Sodium Potassium 3.1 L Chloride 95.8 L Carbon Dioxide BUN Creatinine 1.8 H Glucose 106 H POC Glucose 175 H 148 H Lactic Acid Calcium Phosphorus Magnesium Iron TIBC Transferrin Total Bilirubin Direct Bilirubin AST ALT Alkaline Phosphatase Lactate Dehydrogenase CK-MB (CK-2) Troponin T C-Reactive Protein Total Protein Albumin Triglycerides Cholesterol HDL Cholesterol Vitamin B12 Urine Creatinine Urine Total Protein Heparin-induced Plt Ab Hep Bs Antibody, Quant Crossmatch 12/24/16 12/24/16 12/25/16 20:41 22:21 05:03 WBC RBC Hgb Hct MCV MCHC RDW Plt Count Lymph % (Auto) [place] % (Auto) [place] # Baso # Seg Neutrophils % Seg Neuts % (Manual) Lymphocytes % (Manual) Monocytes % (Manual) Nucleated RBC % Seg Neutrophils # Seg Neutrophils # Man Lymphocytes # (Manual) Monocytes # (Manual) Percent Retic Haptoglobin PT INR Fibrinogen D-Dimer POC ABG pH POC ABG pCO2 POC ABG pO2 Sodium Potassium 2.9 L* Chloride Carbon Dioxide BUN Creatinine 2.3 H Glucose 142 H POC Glucose 44 L 111 H Lactic Acid Calcium 8.0 L Phosphorus Magnesium Iron TIBC Transferrin Total Bilirubin Direct Bilirubin AST ALT Alkaline Phosphatase Lactate Dehydrogenase CK-MB (CK-2) Troponin T C-Reactive Protein Total Protein Albumin Triglycerides Cholesterol HDL Cholesterol Vitamin B12 Urine Creatinine Urine Total Protein Heparin-induced Plt Ab Hep Bs Antibody, Quant Crossmatch 12/25/16 12/25/16 12/25/16 07:30 12:08 16:43 WBC RBC Hgb Hct MCV MCHC RDW Plt Count Lymph % (Auto) [place] % (Auto) [place] # Baso # Seg Neutrophils % Seg Neuts % (Manual) Lymphocytes % (Manual) Monocytes % (Manual) Nucleated RBC % Seg Neutrophils # Seg Neutrophils # Man Lymphocytes # (Manual) Monocytes # (Manual) Percent Retic Haptoglobin PT INR Fibrinogen D-Dimer POC ABG pH POC ABG pCO2 POC ABG pO2 Sodium Potassium Chloride Carbon Dioxide BUN Creatinine Glucose POC Glucose 127 H 154 H 235 H Lactic Acid Calcium Phosphorus Magnesium Iron TIBC Transferrin Total Bilirubin Direct Bilirubin AST ALT Alkaline Phosphatase Lactate Dehydrogenase CK-MB (CK-2) Troponin T C-Reactive Protein Total Protein Albumin Triglycerides Cholesterol HDL Cholesterol Vitamin B12 Urine Creatinine Urine Total Protein Heparin-induced Plt Ab Hep Bs Antibody, Quant Crossmatch 12/25/16 12/26/16 12/26/16 23:30 07:49 10:21 WBC RBC Hgb Hct MCV MCHC RDW Plt Count Lymph % (Auto) [place] % (Auto) [place] # Baso # Seg Neutrophils % Seg Neuts % (Manual) Lymphocytes % (Manual) Monocytes % (Manual) Nucleated RBC % Seg Neutrophils # Seg Neutrophils # Man Lymphocytes # (Manual) Monocytes # (Manual) Percent Retic Haptoglobin PT INR Fibrinogen D-Dimer POC ABG pH POC ABG pCO2 POC ABG pO2 Sodium Potassium Chloride Carbon Dioxide BUN Creatinine Glucose POC Glucose 54 L 53 L 154 H Lactic Acid Calcium Phosphorus Magnesium Iron TIBC Transferrin Total Bilirubin Direct Bilirubin AST ALT Alkaline Phosphatase Lactate Dehydrogenase CK-MB (CK-2) Troponin T C-Reactive Protein Total Protein Albumin Triglycerides Cholesterol HDL Cholesterol Vitamin B12 Urine Creatinine Urine Total Protein Heparin-induced Plt Ab Hep Bs Antibody, Quant Crossmatch 12/26/16 12/26/16 12/26/16 12:19 16:14 Unknown WBC RBC Hgb Hct MCV MCHC RDW Plt Count Lymph % (Auto) [place] % (Auto) [place] # Baso # Seg Neutrophils % Seg Neuts % (Manual) Lymphocytes % (Manual) Monocytes % (Manual) Nucleated RBC % Seg Neutrophils # Seg Neutrophils # Man Lymphocytes # (Manual) Monocytes # (Manual) Percent Retic Haptoglobin PT INR Fibrinogen D-Dimer POC ABG pH POC ABG pCO2 POC ABG pO2 Sodium Potassium Chloride Carbon Dioxide BUN Creatinine 2.3 H Glucose POC Glucose 310 H Lactic Acid Calcium 8.3 L Phosphorus Magnesium 1.50 L Iron TIBC Transferrin Total Bilirubin Direct Bilirubin AST ALT Alkaline Phosphatase Lactate Dehydrogenase CK-MB (CK-2) Troponin T C-Reactive Protein Total Protein Albumin Triglycerides Cholesterol HDL Cholesterol Vitamin B12 Urine Creatinine Urine Total Protein Heparin-induced Plt Ab Hep Bs Antibody, Quant Crossmatch 12/26/16 12/26/16 12/27/16 Unknown Unknown 04:47 WBC RBC 2.95 L Hgb 9.0 L Hct 26.5 L MCV MCHC RDW 16.6 H Plt Count Lymph % (Auto) [place] % (Auto) [place] # Baso # Seg Neutrophils % Seg Neuts % (Manual) Lymphocytes % (Manual) Monocytes % (Manual) Nucleated RBC % Seg Neutrophils # Seg Neutrophils # Man Lymphocytes # (Manual) Monocytes # (Manual) Percent Retic Haptoglobin PT INR Fibrinogen D-Dimer POC ABG pH POC ABG pCO2 POC ABG pO2 Sodium Potassium Chloride Carbon Dioxide BUN Creatinine 2.3 H Glucose 157 H POC Glucose 406 H Lactic Acid Calcium 7.7 L Phosphorus Magnesium Iron TIBC Transferrin Total Bilirubin Direct Bilirubin AST ALT Alkaline Phosphatase Lactate Dehydrogenase CK-MB (CK-2) Troponin T C-Reactive Protein Total Protein Albumin Triglycerides Cholesterol HDL Cholesterol Vitamin B12 Urine Creatinine Urine Total Protein Heparin-induced Plt Ab Hep Bs Antibody, Quant Crossmatch 12/27/16 12/27/16 12/27/16 07:54 11:09 15:40 WBC RBC Hgb Hct MCV MCHC RDW Plt Count Lymph % (Auto) [place] % (Auto) [place] # Baso # Seg Neutrophils % Seg Neuts % (Manual) Lymphocytes % (Manual) Monocytes % (Manual) Nucleated RBC % Seg Neutrophils # Seg Neutrophils # Man Lymphocytes # (Manual) Monocytes # (Manual) Percent Retic Haptoglobin PT INR Fibrinogen D-Dimer POC ABG pH POC ABG pCO2 POC ABG pO2 Sodium Potassium Chloride Carbon Dioxide BUN Creatinine Glucose POC Glucose 500 H 301 H 208 H Lactic Acid Calcium Phosphorus Magnesium Iron TIBC Transferrin Total Bilirubin Direct Bilirubin AST ALT Alkaline Phosphatase Lactate Dehydrogenase CK-MB (CK-2) Troponin T C-Reactive Protein Total Protein Albumin Triglycerides Cholesterol HDL Cholesterol Vitamin B12 Urine Creatinine Urine Total Protein Heparin-induced Plt Ab Hep Bs Antibody, Quant Crossmatch 12/27/16 12/28/16 12/28/16 21:00 06:17 07:30 WBC RBC Hgb Hct MCV MCHC RDW Plt Count Lymph % (Auto) [place] % (Auto) [place] # Baso # Seg Neutrophils % Seg Neuts % (Manual) Lymphocytes % (Manual) Monocytes % (Manual) Nucleated RBC % Seg Neutrophils # Seg Neutrophils # Man Lymphocytes # (Manual) Monocytes # (Manual) Percent Retic Haptoglobin PT INR Fibrinogen D-Dimer POC ABG pH POC ABG pCO2 POC ABG pO2 Sodium Potassium 5.1 H D Chloride Carbon Dioxide 19 L BUN 24 H Creatinine 2.0 H Glucose 394 H POC Glucose 347 H 409 H Lactic Acid Calcium 7.7 L Phosphorus Magnesium Iron TIBC Transferrin Total Bilirubin Direct Bilirubin AST ALT Alkaline Phosphatase Lactate Dehydrogenase CK-MB (CK-2) Troponin T C-Reactive Protein Total Protein Albumin Triglycerides Cholesterol HDL Cholesterol Vitamin B12 Urine Creatinine Urine Total Protein Heparin-induced Plt Ab Hep Bs Antibody, Quant Crossmatch 12/28/16 12/28/16 12/28/16 11:33 16:38 20:59 WBC RBC Hgb Hct MCV MCHC RDW Plt Count Lymph % (Auto) [place] % (Auto) [place] # Baso # Seg Neutrophils % Seg Neuts % (Manual) Lymphocytes % (Manual) Monocytes % (Manual) Nucleated RBC % Seg Neutrophils # Seg Neutrophils # Man Lymphocytes # (Manual) Monocytes # (Manual) Percent Retic Haptoglobin PT INR Fibrinogen D-Dimer POC ABG pH POC ABG pCO2 POC ABG pO2 Sodium Potassium Chloride Carbon Dioxide BUN Creatinine Glucose POC Glucose 260 H 240 H 45 L Lactic Acid Calcium Phosphorus Magnesium Iron TIBC Transferrin Total Bilirubin Direct Bilirubin AST ALT Alkaline Phosphatase Lactate Dehydrogenase CK-MB (CK-2) Troponin T C-Reactive Protein Total Protein Albumin Triglycerides Cholesterol HDL Cholesterol Vitamin B12 Urine Creatinine Urine Total Protein Heparin-induced Plt Ab Hep Bs Antibody, Quant Crossmatch 12/28/16 12/29/16 12/29/16 22:14 04:45 05:52 WBC RBC Hgb Hct MCV MCHC RDW Plt Count Lymph % (Auto) [place] % (Auto) [place] # Baso # Seg Neutrophils % Seg Neuts % (Manual) Lymphocytes % (Manual) Monocytes % (Manual) Nucleated RBC % Seg Neutrophils # Seg Neutrophils # Man Lymphocytes # (Manual) Monocytes # (Manual) Percent Retic Haptoglobin PT INR Fibrinogen D-Dimer POC ABG pH POC ABG pCO2 POC ABG pO2 Sodium Potassium Chloride Carbon Dioxide BUN 23 H Creatinine 2.0 H Glucose 166 H POC Glucose 56 L 43 L Lactic Acid Calcium 7.7 L Phosphorus Magnesium Iron TIBC Transferrin Total Bilirubin Direct Bilirubin AST ALT Alkaline Phosphatase Lactate Dehydrogenase CK-MB (CK-2) Troponin T C-Reactive Protein Total Protein Albumin Triglycerides Cholesterol HDL Cholesterol Vitamin B12 Urine Creatinine Urine Total Protein Heparin-induced Plt Ab Hep Bs Antibody, Quant Crossmatch 12/29/16 12/29/16 12/30/16 06:52 11:52 05:00 WBC RBC Hgb Hct MCV MCHC RDW Plt Count Lymph % (Auto) [place] % (Auto) [place] # Baso # Seg Neutrophils % Seg Neuts % (Manual) Lymphocytes % (Manual) Monocytes % (Manual) Nucleated RBC % Seg Neutrophils # Seg Neutrophils # Man Lymphocytes # (Manual) Monocytes # (Manual) Percent Retic Haptoglobin PT INR Fibrinogen D-Dimer POC ABG pH POC ABG pCO2 POC ABG pO2 Sodium Potassium Chloride Carbon Dioxide BUN 20 H Creatinine 2.0 H Glucose 150 H POC Glucose 115 H 143 H Lactic Acid Calcium 7.6 L Phosphorus Magnesium Iron TIBC Transferrin Total Bilirubin Direct Bilirubin AST ALT Alkaline Phosphatase Lactate Dehydrogenase CK-MB (CK-2) Troponin T C-Reactive Protein Total Protein Albumin Triglycerides Cholesterol HDL Cholesterol Vitamin B12 Urine Creatinine Urine Total Protein Heparin-induced Plt Ab Hep Bs Antibody, Quant Crossmatch 12/30/16 12/30/16 12/30/16 07:11 11:36 15:17 WBC RBC Hgb Hct MCV MCHC RDW Plt Count Lymph % (Auto) [place] % (Auto) [place] # Baso # Seg Neutrophils % Seg Neuts % (Manual) Lymphocytes % (Manual) Monocytes % (Manual) Nucleated RBC % Seg Neutrophils # Seg Neutrophils # Man Lymphocytes # (Manual) Monocytes # (Manual) Percent Retic Haptoglobin PT INR Fibrinogen D-Dimer POC ABG pH POC ABG pCO2 POC ABG pO2 Sodium Potassium Chloride Carbon Dioxide BUN Creatinine Glucose POC Glucose 162 H 137 H 123 H Lactic Acid Calcium Phosphorus Magnesium Iron TIBC Transferrin Total Bilirubin Direct Bilirubin AST ALT Alkaline Phosphatase Lactate Dehydrogenase CK-MB (CK-2) Troponin T C-Reactive Protein Total Protein Albumin Triglycerides Cholesterol HDL Cholesterol Vitamin B12 Urine Creatinine Urine Total Protein Heparin-induced Plt Ab Hep Bs Antibody, Quant Crossmatch 12/30/16 12/30/16 12/30/16 21:11 22:13 23:35 WBC RBC Hgb Hct MCV MCHC RDW Plt Count Lymph % (Auto) [place] % (Auto) [place] # Baso # Seg Neutrophils % Seg Neuts % (Manual) Lymphocytes % (Manual) Monocytes % (Manual) Nucleated RBC % Seg Neutrophils # Seg Neutrophils # Man Lymphocytes # (Manual) Monocytes # (Manual) Percent Retic Haptoglobin PT INR Fibrinogen D-Dimer POC ABG pH POC ABG pCO2 POC ABG pO2 Sodium Potassium Chloride Carbon Dioxide BUN Creatinine Glucose POC Glucose < 40 L 40 L 126 H Lactic Acid Calcium Phosphorus Magnesium Iron TIBC Transferrin Total Bilirubin Direct Bilirubin AST ALT Alkaline Phosphatase Lactate Dehydrogenase CK-MB (CK-2) Troponin T C-Reactive Protein Total Protein Albumin Triglycerides Cholesterol HDL Cholesterol Vitamin B12 Urine Creatinine Urine Total Protein Heparin-induced Plt Ab Hep Bs Antibody, Quant Crossmatch 12/31/16 12/31/16 12/31/16 06:38 07:51 08:28 WBC RBC Hgb Hct MCV MCHC RDW Plt Count Lymph % (Auto) [place] % (Auto) [place] # Baso # Seg Neutrophils % Seg Neuts % (Manual) Lymphocytes % (Manual) Monocytes % (Manual) Nucleated RBC % Seg Neutrophils # Seg Neutrophils # Man Lymphocytes # (Manual) Monocytes # (Manual) Percent Retic Haptoglobin PT INR Fibrinogen D-Dimer POC ABG pH POC ABG pCO2 POC ABG pO2 Sodium Potassium Chloride Carbon Dioxide BUN 20 H Creatinine 1.6 H Glucose 28 L* POC Glucose 44 L 155 H Lactic Acid Calcium 7.4 L Phosphorus Magnesium Iron TIBC Transferrin Total Bilirubin Direct Bilirubin AST ALT Alkaline Phosphatase Lactate Dehydrogenase CK-MB (CK-2) Troponin T C-Reactive Protein Total Protein Albumin Triglycerides Cholesterol HDL Cholesterol Vitamin B12 Urine Creatinine Urine Total Protein Heparin-induced Plt Ab Hep Bs Antibody, Quant Crossmatch 12/31/16 12/31/16 12/31/16 11:27 12:59 16:10 WBC RBC Hgb Hct MCV MCHC RDW Plt Count Lymph % (Auto) [place] % (Auto) [place] # Baso # Seg Neutrophils % Seg Neuts % (Manual) Lymphocytes % (Manual) Monocytes % (Manual) Nucleated RBC % Seg Neutrophils # Seg Neutrophils # Man Lymphocytes # (Manual) Monocytes # (Manual) Percent Retic Haptoglobin PT INR Fibrinogen D-Dimer POC ABG pH POC ABG pCO2 POC ABG pO2 Sodium Potassium Chloride Carbon Dioxide BUN Creatinine Glucose POC Glucose 113 H 113 H 216 H Lactic Acid Calcium Phosphorus Magnesium Iron TIBC Transferrin Total Bilirubin Direct Bilirubin AST ALT Alkaline Phosphatase Lactate Dehydrogenase CK-MB (CK-2) Troponin T C-Reactive Protein Total Protein Albumin Triglycerides Cholesterol HDL Cholesterol Vitamin B12 Urine Creatinine Urine Total Protein Heparin-induced Plt Ab Hep Bs Antibody, Quant Crossmatch 12/31/16 01/01/17 01/01/17 21:22 01:11 01:46 WBC RBC Hgb Hct MCV MCHC RDW Plt Count Lymph % (Auto) [place] % (Auto) [place] # Baso # Seg Neutrophils % Seg Neuts % (Manual) Lymphocytes % (Manual) Monocytes % (Manual) Nucleated RBC % Seg Neutrophils # Seg Neutrophils # Man Lymphocytes # (Manual) Monocytes # (Manual) Percent Retic Haptoglobin PT INR Fibrinogen D-Dimer POC ABG pH POC ABG pCO2 POC ABG pO2 Sodium Potassium Chloride Carbon Dioxide BUN Creatinine Glucose POC Glucose 410 H 129 H Lactic Acid Calcium Phosphorus Magnesium 1.40 L Iron TIBC Transferrin Total Bilirubin Direct Bilirubin AST ALT Alkaline Phosphatase Lactate Dehydrogenase CK-MB (CK-2) Troponin T C-Reactive Protein Total Protein Albumin Triglycerides Cholesterol HDL Cholesterol Vitamin B12 Urine Creatinine Urine Total Protein Heparin-induced Plt Ab Hep Bs Antibody, Quant Crossmatch 01/01/17 01/01/17 01/01/17 05:00 08:07 11:56 WBC RBC Hgb Hct MCV MCHC RDW Plt Count Lymph % (Auto) [place] % (Auto) [place] # Baso # Seg Neutrophils % Seg Neuts % (Manual) Lymphocytes % (Manual) Monocytes % (Manual) Nucleated RBC % Seg Neutrophils # Seg Neutrophils # Man Lymphocytes # (Manual) Monocytes # (Manual) Percent Retic Haptoglobin PT INR Fibrinogen D-Dimer POC ABG pH POC ABG pCO2 POC ABG pO2 Sodium Potassium 5.2 H D Chloride Carbon Dioxide BUN 22 H Creatinine 1.6 H Glucose 167 H POC Glucose 431 H 216 H Lactic Acid Calcium 7.8 L Phosphorus Magnesium Iron TIBC Transferrin Total Bilirubin Direct Bilirubin AST ALT Alkaline Phosphatase Lactate Dehydrogenase CK-MB (CK-2) Troponin T C-Reactive Protein Total Protein Albumin Triglycerides Cholesterol HDL Cholesterol Vitamin B12 Urine Creatinine Urine Total Protein Heparin-induced Plt Ab Hep Bs Antibody, Quant Crossmatch 01/01/17 01/01/17 01/02/17 16:02 20:53 05:10 WBC RBC Hgb Hct MCV MCHC RDW Plt Count Lymph % (Auto) [place] % (Auto) [place] # Baso # Seg Neutrophils % Seg Neuts % (Manual) Lymphocytes % (Manual) Monocytes % (Manual) Nucleated RBC % Seg Neutrophils # Seg Neutrophils # Man Lymphocytes # (Manual) Monocytes # (Manual) Percent Retic Haptoglobin PT INR Fibrinogen D-Dimer POC ABG pH POC ABG pCO2 POC ABG pO2 Sodium Potassium Chloride Carbon Dioxide BUN 21 H Creatinine 1.5 H Glucose 313 H POC Glucose 491 H 114 H Lactic Acid Calcium 8.3 L Phosphorus Magnesium Iron TIBC Transferrin Total Bilirubin Direct Bilirubin AST ALT Alkaline Phosphatase Lactate Dehydrogenase CK-MB (CK-2) Troponin T C-Reactive Protein Total Protein Albumin Triglycerides Cholesterol HDL Cholesterol Vitamin B12 Urine Creatinine Urine Total Protein Heparin-induced Plt Ab Hep Bs Antibody, Quant Crossmatch 01/02/17 01/02/17 01/02/17 05:10 06:03 09:04 WBC 12.7 H RBC 2.77 L Hgb 8.0 L Hct 25.5 L MCV MCHC RDW 16.6 H Plt Count Lymph % (Auto) [place] % (Auto) [place] # Baso # Seg Neutrophils % Seg Neuts % (Manual) Lymphocytes % (Manual) Monocytes % (Manual) Nucleated RBC % Seg Neutrophils # Seg Neutrophils # Man Lymphocytes # (Manual) Monocytes # (Manual) Percent Retic Haptoglobin PT INR Fibrinogen D-Dimer POC ABG pH POC ABG pCO2 POC ABG pO2 Sodium Potassium Chloride Carbon Dioxide BUN Creatinine Glucose POC Glucose 304 H 52 L Lactic Acid Calcium Phosphorus Magnesium Iron TIBC Transferrin Total Bilirubin Direct Bilirubin AST ALT Alkaline Phosphatase Lactate Dehydrogenase CK-MB (CK-2) Troponin T C-Reactive Protein Total Protein Albumin Triglycerides Cholesterol HDL Cholesterol Vitamin B12 Urine Creatinine Urine Total Protein Heparin-induced Plt Ab Hep Bs Antibody, Quant Crossmatch 01/02/17 01/02/17 01/02/17 12:06 16:35 22:55 WBC RBC Hgb Hct MCV MCHC RDW Plt Count Lymph % (Auto) [place] % (Auto) [place] # Baso # Seg Neutrophils % Seg Neuts % (Manual) Lymphocytes % (Manual) Monocytes % (Manual) Nucleated RBC % Seg Neutrophils # Seg Neutrophils # Man Lymphocytes # (Manual) Monocytes # (Manual) Percent Retic Haptoglobin PT INR Fibrinogen D-Dimer POC ABG pH POC ABG pCO2 POC ABG pO2 Sodium Potassium Chloride Carbon Dioxide BUN Creatinine Glucose POC Glucose 157 H 286 H 324 H Lactic Acid Calcium Phosphorus Magnesium Iron TIBC Transferrin Total Bilirubin Direct Bilirubin AST ALT Alkaline Phosphatase Lactate Dehydrogenase CK-MB (CK-2) Troponin T C-Reactive Protein Total Protein Albumin Triglycerides Cholesterol HDL Cholesterol Vitamin B12 Urine Creatinine Urine Total Protein Heparin-induced Plt Ab Hep Bs Antibody, Quant Crossmatch 01/03/17 01/03/17 01/03/17 07:20 07:20 08:45 WBC RBC 2.39 L Hgb 6.8 L Hct 21.5 L MCV MCHC RDW 16.7 H Plt Count Lymph % (Auto) [place] % (Auto) [place] # Baso # Seg Neutrophils % Seg Neuts % (Manual) Lymphocytes % (Manual) Monocytes % (Manual) Nucleated RBC % Seg Neutrophils # Seg Neutrophils # Man Lymphocytes # (Manual) Monocytes # (Manual) Percent Retic Haptoglobin PT INR Fibrinogen D-Dimer POC ABG pH POC ABG pCO2 POC ABG pO2 Sodium Potassium Chloride 110.5 H Carbon Dioxide BUN Creatinine 1.5 H Glucose 327 H POC Glucose 428 H Lactic Acid Calcium 7.3 L Phosphorus Magnesium Iron TIBC Transferrin Total Bilirubin Direct Bilirubin AST ALT Alkaline Phosphatase Lactate Dehydrogenase CK-MB (CK-2) Troponin T C-Reactive Protein Total Protein Albumin Triglycerides Cholesterol HDL Cholesterol Vitamin B12 Urine Creatinine Urine Total Protein Heparin-induced Plt Ab Hep Bs Antibody, Quant Crossmatch 01/03/17 01/03/17 01/03/17 11:18 12:30 16:08 WBC RBC Hgb Hct MCV MCHC RDW Plt Count Lymph % (Auto) [place] % (Auto) [place] # Baso # Seg Neutrophils % Seg Neuts % (Manual) Lymphocytes % (Manual) Monocytes % (Manual) Nucleated RBC % Seg Neutrophils # Seg Neutrophils # Man Lymphocytes # (Manual) Monocytes # (Manual) Percent Retic Haptoglobin PT INR Fibrinogen D-Dimer POC ABG pH POC ABG pCO2 POC ABG pO2 Sodium Potassium Chloride Carbon Dioxide BUN Creatinine Glucose POC Glucose 195 H 141 H Lactic Acid Calcium Phosphorus Magnesium Iron TIBC Transferrin Total Bilirubin Direct Bilirubin AST ALT Alkaline Phosphatase Lactate Dehydrogenase CK-MB (CK-2) Troponin T C-Reactive Protein Total Protein Albumin Triglycerides Cholesterol HDL Cholesterol Vitamin B12 Urine Creatinine Urine Total Protein Heparin-induced Plt Ab Hep Bs Antibody, Quant Crossmatch See Detail 01/03/17 01/04/17 01/04/17 21:29 06:57 06:57 WBC RBC 2.69 L Hgb 7.8 L Hct 24.0 L MCV MCHC RDW 16.0 H Plt Count Lymph % (Auto) [place] % (Auto) [place] # Baso # Seg Neutrophils % Seg Neuts % (Manual) Lymphocytes % (Manual) Monocytes % (Manual) Nucleated RBC % Seg Neutrophils # Seg Neutrophils # Man Lymphocytes # (Manual) Monocytes # (Manual) Percent Retic Haptoglobin PT INR Fibrinogen D-Dimer POC ABG pH POC ABG pCO2 POC ABG pO2 Sodium Potassium Chloride Carbon Dioxide BUN Creatinine 1.4 H Glucose 59 L POC Glucose 55 L Lactic Acid Calcium 7.5 L Phosphorus Magnesium Iron TIBC Transferrin Total Bilirubin Direct Bilirubin AST ALT Alkaline Phosphatase Lactate Dehydrogenase CK-MB (CK-2) Troponin T C-Reactive Protein Total Protein Albumin Triglycerides Cholesterol HDL Cholesterol Vitamin B12 Urine Creatinine Urine Total Protein Heparin-induced Plt Ab Hep Bs Antibody, Quant Crossmatch 01/04/17 01/04/17 01/04/17 06:57 08:01 12:10 WBC RBC Hgb Hct MCV MCHC RDW Plt Count Lymph % (Auto) [place] % (Auto) [place] # Baso # Seg Neutrophils % Seg Neuts % (Manual) Lymphocytes % (Manual) Monocytes % (Manual) Nucleated RBC % Seg Neutrophils # Seg Neutrophils # Man Lymphocytes # (Manual) Monocytes # (Manual) Percent Retic Haptoglobin PT INR Fibrinogen D-Dimer POC ABG pH POC ABG pCO2 POC ABG pO2 Sodium Potassium Chloride Carbon Dioxide BUN Creatinine Glucose POC Glucose 112 H 244 H Lactic Acid Calcium Phosphorus Magnesium Iron TIBC Transferrin Total Bilirubin Direct Bilirubin AST ALT 6 L Alkaline Phosphatase 161 H Lactate Dehydrogenase CK-MB (CK-2) Troponin T C-Reactive Protein Total Protein 5.6 L Albumin 2.7 L Triglycerides Cholesterol HDL Cholesterol Vitamin B12 Urine Creatinine Urine Total Protein Heparin-induced Plt Ab Hep Bs Antibody, Quant Crossmatch 01/04/17 01/04/17 01/05/17 17:12 21:47 01:01 WBC RBC Hgb Hct MCV MCHC RDW Plt Count Lymph % (Auto) [place] % (Auto) [place] # Baso # Seg Neutrophils % Seg Neuts % (Manual) Lymphocytes % (Manual) Monocytes % (Manual) Nucleated RBC % Seg Neutrophils # Seg Neutrophils # Man Lymphocytes # (Manual) Monocytes # (Manual) Percent Retic Haptoglobin PT INR Fibrinogen D-Dimer POC ABG pH POC ABG pCO2 POC ABG pO2 Sodium Potassium Chloride Carbon Dioxide BUN Creatinine Glucose POC Glucose 388 H 359 H 476 H Lactic Acid Calcium Phosphorus Magnesium Iron TIBC Transferrin Total Bilirubin Direct Bilirubin AST ALT Alkaline Phosphatase Lactate Dehydrogenase CK-MB (CK-2) Troponin T C-Reactive Protein Total Protein Albumin Triglycerides Cholesterol HDL Cholesterol Vitamin B12 Urine Creatinine Urine Total Protein Heparin-induced Plt Ab Hep Bs Antibody, Quant Crossmatch 01/05/17 01/05/17 01/05/17 05:00 05:00 05:22 WBC RBC 3.10 L Hgb 9.1 L Hct 27.9 L MCV MCHC RDW 16.4 H Plt Count Lymph % (Auto) [place] % (Auto) [place] # Baso # Seg Neutrophils % Seg Neuts % (Manual) Lymphocytes % (Manual) Monocytes % (Manual) Nucleated RBC % Seg Neutrophils # Seg Neutrophils # Man Lymphocytes # (Manual) Monocytes # (Manual) Percent Retic Haptoglobin PT INR Fibrinogen D-Dimer POC ABG pH POC ABG pCO2 POC ABG pO2 Sodium 130 L D Potassium 5.8 H D Chloride 93.3 L Carbon Dioxide 18 L BUN 24 H Creatinine 1.7 H Glucose POC Glucose > 500 H Lactic Acid Calcium 7.5 L Phosphorus Magnesium Iron TIBC Transferrin Total Bilirubin Direct Bilirubin AST ALT Alkaline Phosphatase Lactate Dehydrogenase CK-MB (CK-2) Troponin T C-Reactive Protein Total Protein Albumin Triglycerides Cholesterol HDL Cholesterol Vitamin B12 Urine Creatinine Urine Total Protein Heparin-induced Plt Ab Hep Bs Antibody, Quant Crossmatch 01/05/17 01/05/17 01/05/17 06:40 07:36 09:43 WBC RBC Hgb Hct MCV MCHC RDW Plt Count Lymph % (Auto) [place] % (Auto) [place] # Baso # Seg Neutrophils % Seg Neuts % (Manual) Lymphocytes % (Manual) Monocytes % (Manual) Nucleated RBC % Seg Neutrophils # Seg Neutrophils # Man Lymphocytes # (Manual) Monocytes # (Manual) Percent Retic Haptoglobin PT INR Fibrinogen D-Dimer POC ABG pH POC ABG pCO2 POC ABG pO2 Sodium Potassium Chloride Carbon Dioxide BUN Creatinine Glucose 831 H* POC Glucose > 500 H 403 H Lactic Acid Calcium Phosphorus Magnesium Iron TIBC Transferrin Total Bilirubin Direct Bilirubin AST ALT Alkaline Phosphatase Lactate Dehydrogenase CK-MB (CK-2) Troponin T C-Reactive Protein Total Protein Albumin Triglycerides Cholesterol HDL Cholesterol Vitamin B12 Urine Creatinine Urine Total Protein Heparin-induced Plt Ab Hep Bs Antibody, Quant Crossmatch 01/05/17 01/05/17 01/05/17 11:19 16:04 21:14 WBC RBC Hgb Hct MCV MCHC RDW Plt Count Lymph % (Auto) [place] % (Auto) [place] # Baso # Seg Neutrophils % Seg Neuts % (Manual) Lymphocytes % (Manual) Monocytes % (Manual) Nucleated RBC % Seg Neutrophils # Seg Neutrophils # Man Lymphocytes # (Manual) Monocytes # (Manual) Percent Retic Haptoglobin PT INR Fibrinogen D-Dimer POC ABG pH POC ABG pCO2 POC ABG pO2 Sodium Potassium Chloride Carbon Dioxide BUN Creatinine Glucose POC Glucose 293 H 408 H 401 H Lactic Acid Calcium Phosphorus Magnesium Iron TIBC Transferrin Total Bilirubin Direct Bilirubin AST ALT Alkaline Phosphatase Lactate Dehydrogenase CK-MB (CK-2) Troponin T C-Reactive Protein Total Protein Albumin Triglycerides Cholesterol HDL Cholesterol Vitamin B12 Urine Creatinine Urine Total Protein Heparin-induced Plt Ab Hep Bs Antibody, Quant Crossmatch 01/05/17 01/06/17 01/06/17 Unknown 05:58 07:51 WBC RBC Hgb Hct MCV MCHC RDW Plt Count Lymph % (Auto) [place] % (Auto) [place] # Baso # Seg Neutrophils % Seg Neuts % (Manual) Lymphocytes % (Manual) Monocytes % (Manual) Nucleated RBC % Seg Neutrophils # Seg Neutrophils # Man Lymphocytes # (Manual) Monocytes # (Manual) Percent Retic Haptoglobin PT INR Fibrinogen D-Dimer POC ABG pH POC ABG pCO2 POC ABG pO2 Sodium 134 L Potassium Chloride Carbon Dioxide 18 L BUN 30 H Creatinine 1.8 H Glucose 329 H POC Glucose > 500 H 472 H Lactic Acid Calcium 7.4 L Phosphorus Magnesium Iron TIBC Transferrin Total Bilirubin Direct Bilirubin AST ALT Alkaline Phosphatase Lactate Dehydrogenase CK-MB (CK-2) Troponin T C-Reactive Protein Total Protein Albumin Triglycerides Cholesterol HDL Cholesterol Vitamin B12 Urine Creatinine Urine Total Protein Heparin-induced Plt Ab Hep Bs Antibody, Quant Crossmatch 01/06/17 01/06/17 01/06/17 12:03 16:39 22:38 WBC RBC Hgb Hct MCV MCHC RDW Plt Count Lymph % (Auto) [place] % (Auto) [place] # Baso # Seg Neutrophils % Seg Neuts % (Manual) Lymphocytes % (Manual) Monocytes % (Manual) Nucleated RBC % Seg Neutrophils # Seg Neutrophils # Man Lymphocytes # (Manual) Monocytes # (Manual) Percent Retic Haptoglobin PT INR Fibrinogen D-Dimer POC ABG pH POC ABG pCO2 POC ABG pO2 Sodium Potassium Chloride Carbon Dioxide BUN Creatinine Glucose POC Glucose 258 H 331 H 246 H Lactic Acid Calcium Phosphorus Magnesium Iron TIBC Transferrin Total Bilirubin Direct Bilirubin AST ALT Alkaline Phosphatase Lactate Dehydrogenase CK-MB (CK-2) Troponin T C-Reactive Protein Total Protein Albumin Triglycerides Cholesterol HDL Cholesterol Vitamin B12 Urine Creatinine Urine Total Protein Heparin-induced Plt Ab Hep Bs Antibody, Quant Crossmatch 01/07/17 01/07/17 01/07/17 06:17 06:17 06:21 WBC 14.1 H RBC 2.54 L Hgb 7.4 L Hct 23.0 L MCV MCHC RDW 16.6 H Plt Count Lymph % (Auto) [place] % (Auto) [place] # Baso # Seg Neutrophils % Seg Neuts % (Manual) Lymphocytes % (Manual) Monocytes % (Manual) Nucleated RBC % Seg Neutrophils # Seg Neutrophils # Man Lymphocytes # (Manual) Monocytes # (Manual) Percent Retic Haptoglobin PT INR Fibrinogen D-Dimer POC ABG pH POC ABG pCO2 POC ABG pO2 Sodium 136 L Potassium Chloride Carbon Dioxide 20 L BUN 40 H Creatinine 1.3 H Glucose 376 H POC Glucose 378 H Lactic Acid Calcium 7.7 L Phosphorus Magnesium Iron TIBC Transferrin Total Bilirubin Direct Bilirubin AST ALT Alkaline Phosphatase Lactate Dehydrogenase CK-MB (CK-2) Troponin T C-Reactive Protein Total Protein Albumin Triglycerides Cholesterol HDL Cholesterol Vitamin B12 Urine Creatinine Urine Total Protein Heparin-induced Plt Ab Hep Bs Antibody, Quant Crossmatch 01/07/17 01/07/17 11:13 11:38 WBC RBC Hgb Hct MCV MCHC RDW Plt Count Lymph % (Auto) [place] % (Auto) [place] # Baso # Seg Neutrophils % Seg Neuts % (Manual) Lymphocytes % (Manual) Monocytes % (Manual) Nucleated RBC % Seg Neutrophils # Seg Neutrophils # Man Lymphocytes # (Manual) Monocytes # (Manual) Percent Retic Haptoglobin PT INR Fibrinogen D-Dimer POC ABG pH POC ABG pCO2 POC ABG pO2 Sodium Potassium Chloride Carbon Dioxide BUN Creatinine Glucose POC Glucose 406 H Lactic Acid 7.00 H* Calcium Phosphorus Magnesium Iron TIBC Transferrin Total Bilirubin Direct Bilirubin AST ALT Alkaline Phosphatase Lactate Dehydrogenase CK-MB (CK-2) Troponin T C-Reactive Protein Total Protein Albumin Triglycerides Cholesterol HDL Cholesterol Vitamin B12 Urine Creatinine Urine Total Protein Heparin-induced Plt Ab Hep Bs Antibody, Quant Crossmatch
[2017-01-07] MEDS ORDERED: FLAGYL PO SCH (14:00)
[2017-01-07] MEDS ORDERED: DUONEB *Not for PRN Use IH (14:26)
[2017-01-07] MEDS: ZOSYN/NS 4.5GM/100ML 4.5 GM/100 ML VIAL IV SCH ×2 (15:16→23:02)
[2017-01-07] MEDS: DOXYCYCLINE HYCLATE 100 MG in NACL 0.9% 250ML 250 ML IV SCH ×2 (16:26→22:21)
--- NOTE | 2017-01-07 16:28 | Gastroenterology Progress Note ---
Assessment and Plan 1. chronic anemia - pt with chronic anemia, with fluctuating levels over last several weeks, but overall mostly stable. denies signs of overt gi bleeding. EGD from October reviewed. check iron studies, b12, folate. hold off on colonoscopy/repeat egd unless pt develops signs of overt gi bleeding. further work-up can be done prior to discharge or as outpatient. Will sign off, please call back as needed or questions. Subjective Date of service: 01/07/17 Principal diagnosis: Anemia, DKA, ARF, cardiac arrest Interval history: patient known to GI service (seen during this admission for PEG evaluation which pt declined). She has had a prolonged, complicated hospital course. GI re-consulted for anemia. Patient reports having nausea, but has been tolerating clear liquid diet today. Denies signs of overt Gi bleeding. States stools are brown, no hematemesis. Denies abd pain. Objective - Exam Narrative Exam: Gen: thin female, appears older than stated age, chronically ill appearing Head: nc/at CV: RRR Lungs: CTAB, non labored Abd: soft, nd, nt, +bs Ext: no edema Neuro: oriented x 3 Psych: tearful on exam, appears depressed - Constitutional Vitals: Temp Pulse Resp BP Pulse Ox 99.9 F H 104 H 20 165/94 99 01/07/17 07:20 01/07/17 14:34 01/07/17 14:34 01/07/17 10:02 01/07/17 07:20 - Labs CBC & Chem 7: 01/07/17 06:17 01/07/17 06:17 Labs: Laboratory Results - last 24 hr 01/06/17 01/06/17 01/07/17 16:39 22:38 06:17 WBC 14.1 H RBC 2.54 L Hgb 7.4 L Hct 23.0 L MCV 91 MCH 29 MCHC 32 RDW 16.6 H Plt Count 400 Sodium Potassium Chloride Carbon Dioxide Anion Gap BUN Creatinine Estimated GFR BUN/Creatinine Ratio Glucose POC Glucose 331 H 246 H Lactic Acid Calcium 01/07/17 01/07/17 01/07/17 06:17 06:21 11:13 WBC RBC Hgb Hct MCV MCH MCHC RDW Plt Count Sodium 136 L Potassium 4.7 Chloride 100.9 Carbon Dioxide 20 L Anion Gap 20 BUN 40 H Creatinine 1.3 H Estimated GFR 53 BUN/Creatinine Ratio 30.76 Glucose 376 H POC Glucose 378 H Lactic Acid 7.00 H* Calcium 7.7 L 01/07/17 01/07/17 11:38 14:00 WBC RBC Hgb Hct MCV MCH MCHC RDW Plt Count Sodium Potassium Chloride Carbon Dioxide Anion Gap BUN Creatinine Estimated GFR BUN/Creatinine Ratio Glucose POC Glucose 406 H Lactic Acid 4.20 H* Calcium
--- NOTE | 2017-01-07 16:30 | XRay Report ---
CHEST TWO VIEWS: 01/07/17 CLINICAL: Followup pneumonia. COMPARISON: 01/01/17 FINDINGS: The previously described wedge-shaped right upper lobe opacity is slightly less dense than on previous exams. The chest is otherwise unchanged. Mild streaky opacities in the left lung base are unchanged. Normal heart and pulmonary vessels. A left PICC line tip remains in the right atrium near the cavoatrial junction.The bones and soft tissues are unremarkable. IMPRESSION: Right upper lobe anterior segment pneumonia with slight improvement.Bilateral lower lobe subsegmental atelectasis versus scar.
[2017-01-07] MEDS: NACL 0.9% 1000 ML 1,000 ML IV SCH (16:36)
--- NOTE | 2017-01-07 16:37 | Progress Note ---
Assessment and Plan Assessment and plan: The patient is a 46-year-old woman with history of insulin-dependent diabetes mellitus, hypertension, recent SAH and dyslipidemia who presented with DKA, AMS and STEMI with V. fib arrest requiring IV amiodarone suppression. she was intubated and subsequently extubated. she was treated with IV insulin drip for documented DKA without ketones documentation but she was acidotic on admission and pressors but subsequently weaned off and transferred to the medical floor. Patient has had multiple admissions in the hospital multiple times and near experience in multiple of the Spesis secondary to Possible aspiration penumonitis. She demonstrates with fever despite being on high-dose steroids and multiple antibiotic coverage. Will be restarted on Zosyn and continue doxycycline. While continuing high-dose steroids. We'll continue to monitor cultures were repeated blood cultures at this time. Repeat chest x-ray. Bronchoscopy micro- data reviewed in detail multiple organisms questionable contamination versus colonization. Nevertheless due to recurrent fever will treat. ID input appreciated Patient also noted with leukocytosis-discomfort is secondary to steroids and lactic acidosis disc with secondary although to elevated blood sugar but with the fever. Warrants follow sepsis management We'll give bolus of fluids 2 L total Monitor a.m. labs Uncontrolled DM -Labile-recent increased due to addition of steroids. Blood glucose adjusted. We'll monitor closely for the next 24 hours. -CONTINUE CARB CONSISTENT DIET -Give A liter bolous. -70/30 changed 23 units bid. Continue sliding scale low-dose.. Hold or decrease dose by 50 % when patient not eating due to Gastroenteritis. Gastroenteritis. Nausea and vomiting. start gentle hydration due to renal function. GI reevaluation appreciated. No indication for endoscopy at this time. Acute hypoxic respiratory failure. Resolved. Now extubated, stable right upper lobe opacity. AWAITING PATHOLOGY FROM [facility]. cytology showing no malignant cells, Severe Metabolic acidosis Resolved. Neprhology following Cardiac arrest with PEA arrest-->V. fib/?torsades was shocked twice - Likely from hyperkalemia, currently patient is stable. Was treated with amiodarone -Echo EF 40-45% - No recurrence Acute kidney injury secondary to ATN - Nephrology is following. HD Held remains stable although fluctuate Hyperkalemia- Give Kayxalate. Malnutrition- Moderate: Nutrition consult DKA: - resolved - On sliding insulin Acute metabolic encephalopathy, resolved Nstemi Type 2- Likely from Shock. Moderate protein calorie malnutrition [employer] input noted Thrombocytopenia - Resolved Acute on chronic anemia of chronic disease, s/p total 4 units PRBC this admission - STABLE TODAY, will monitor Depression - Psych consulted and recommend outpatient mental health follow up. Disposition -No evidence of cancer on pathology findings. Once patient is stable with no fever for 24-48 hours we'll discharge. Again stressed patient will definitely need an insurance, application has been stared per social workers. -DVT prophylaxis: SCDs only due to recent SAH History Interval history: Patient seen and examined, was again began to have nausea with vomiting with increased temperature. The nursing staff reports that at 101. Hospitalist Physical - Physical exam Narrative exam: VITAL SIGNS: Reviewed. GENERAL: The patient appeared lethargic appearing , cachetic. Vital signs as documented. HEAD: No signs of head trauma. temporal wasting noted EYES: Pupils are equal. Extraocular motions intact. EARS: Hearing grossly intact. MOUTH: Oropharynx is normal. NECK: No adenopathy, no JVD. CHEST: Chest with diminshed breath sounds bilaterally. No wheezes, rales, or rhonchi CARDIAC: Regular rate and rhythm. S1 and S2, without murmurs, gallops, or rubs. VASCULAR: Trace Edema. Peripheral pulses normal and equal in all extremities. ABDOMEN: Soft, without detectable tenderness. No sign of distention. No rebound or guarding, and no masses palpated. Bowel Sounds normal. MUSCULOSKELETAL: Good range of motion of all major joints. Extremities without clubbing, cyanosis. Trace edema. NEUROLOGIC EXAM: Alert and oriented x 3. No focal sensory or strength deficits. Speech normal. Follows commands. PSYCHIATRIC: Mood normal. SKIN: No rash or lesions. - Constitutional Vitals: Temp Pulse Resp BP Pulse Ox 99.9 F H 104 H 20 165/94 99 01/07/17 07:20 01/07/17 14:34 01/07/17 14:34 01/07/17 10:02 01/07/17 07:20 General appearance: Present: no acute distress, other (chronically ill-appearing ) Results - Labs CBC & Chem 7: 01/07/17 06:17 01/07/17 06:17 Labs: Laboratory Last Values WBC 14.1 K/mm3 (4.5-11.0) H 01/07/17 06:17 RBC 2.54 M/mm3 (3.65-5.03) L 01/07/17 06:17 Hgb 7.4 gm/dl (10.1-14.3) L 01/07/17 06:17 Hct 23.0 % (30.3-42.9) L 01/07/17 06:17 MCV 91 fl (79-97) 01/07/17 06:17 MCH 29 pg (28-32) 01/07/17 06:17 MCHC 32 % (30-34) 01/07/17 06:17 RDW 16.6 % (13.2-15.2) H 01/07/17 06:17 Plt Count 400 K/mm3 (140-440) 01/07/17 06:17 Lymph % (Auto) 8.1 % (13.4-35.0) L 12/22/16 06:45 [place] % (Auto) 5.3 % (0.0-7.3) 12/22/16 06:45 Eos % (Auto) 1.4 % (0.0-4.3) 12/22/16 06:45 Baso % (Auto) 0.9 % (0.0-1.8) 12/22/16 06:45 Lymph # 1.4 K/mm3 (1.2-5.4) 12/22/16 06:45 [place] # 0.9 K/mm3 (0.0-0.8) H 12/22/16 06:45 Eos # 0.2 K/mm3 (0.0-0.4) 12/22/16 06:45 Baso # 0.2 K/mm3 (0.0-0.1) H 12/22/16 06:45 Add Manual Diff Complete 12/13/16 07:49 Total Counted 100 12/13/16 07:49 Seg Neutrophils % 84.3 % (40.0-70.0) H 12/22/16 06:45 Seg Neuts % (Manual) 89.0 % (40.0-70.0) H 12/13/16 07:49 Band Neutrophils % 1.0 % 12/13/16 07:49 Lymphocytes % (Manual) 7.0 % (13.4-35.0) L 12/13/16 07:49 Reactive Lymphs % (Man) 0 % 12/13/16 07:49 Monocytes % (Manual) 3.0 % (0.0-7.3) 12/13/16 07:49 Eosinophils % (Manual) 0 % (0.0-4.3) 12/13/16 07:49 Basophils % (Manual) 0 % (0.0-1.8) 12/13/16 07:49 Metamyelocytes % 0 % 12/13/16 07:49 Myelocytes % 0 % 12/13/16 07:49 Promyelocytes % 0 % 12/13/16 07:49 Blast Cells % 0 % 12/13/16 07:49 Nucleated RBC % Not Reportable 12/13/16 07:49 Seg Neutrophils # 14.6 K/mm3 (1.8-7.7) H 12/22/16 06:45 Seg Neutrophils # Man 21.4 K/mm3 (1.8-7.7) H 12/13/16 07:49 Band Neutrophils # 0.2 K/mm3 12/13/16 07:49 Lymphocytes # (Manual) 1.7 K/mm3 (1.2-5.4) 12/13/16 07:49 Abs React Lymphs (Man) 0.0 K/mm3 12/13/16 07:49 Monocytes # (Manual) 0.7 K/mm3 (0.0-0.8) 12/13/16 07:49 Eosinophils # (Manual) 0.0 K/mm3 (0.0-0.4) 12/13/16 07:49 Basophils # (Manual) 0.0 K/mm3 (0.0-0.1) 12/13/16 07:49 Metamyelocytes # 0.0 K/mm3 12/13/16 07:49 Myelocytes # 0.0 K/mm3 12/13/16 07:49 Promyelocytes # 0.0 K/mm3 12/13/16 07:49 Blast Cells # 0.0 K/mm3 12/13/16 07:49 WBC Morphology Not Reportable 12/13/16 07:49 Hypersegmented Neuts Not Reportable 12/13/16 07:49 Hyposegmented Neuts Not Reportable 12/13/16 07:49 Hypogranular Neuts Not Reportable 12/13/16 07:49 Smudge Cells Not Reportable 12/13/16 07:49 Toxic Granulation Not Reportable 12/13/16 07:49 Toxic Vacuolation Not Reportable 12/13/16 07:49 Dohle Bodies Not Reportable 12/13/16 07:49 Pelger-Huet Anomaly Not Reportable 12/13/16 07:49 Mary Rods Not Reportable 12/13/16 07:49 Platelet Estimate Cons 12/13/16 07:49 Clumped Platelets Not Reportable 12/13/16 07:49 Plt Clumps, EDTA Not Reportable 12/13/16 07:49 Large Platelets Rare 12/13/16 07:49 Giant Platelets Not Reportable 12/13/16 07:49 Platelet Satelliting Not Reportable 12/13/16 07:49 Plt Morphology Comment Not Reportable 12/13/16 07:49 RBC Morphology Not Reportable 12/13/16 07:49 Dimorphic RBCs Not Reportable 12/13/16 07:49 Polychromasia Not Reportable 12/13/16 07:49 Hypochromasia 1+ 12/13/16 07:49 Poikilocytosis Not Reportable 12/13/16 07:49 Anisocytosis 1+ 12/13/16 07:49 Microcytosis Not Reportable 12/13/16 07:49 Macrocytosis Not Reportable 12/13/16 07:49 Spherocytes Not Reportable 12/13/16 07:49 Pappenheimer Bodies Not Reportable 12/13/16 07:49 Sickle Cells Not Reportable 12/13/16 07:49 Target Cells Few 12/13/16 07:49 Tear Drop Cells Not Reportable 12/13/16 07:49 Ovalocytes Not Reportable 12/13/16 07:49 Helmet Cells Not Reportable 12/13/16 07:49 [place] Bodies Not Reportable 12/13/16 07:49 Minerva Rings Not Reportable 12/13/16 07:49 Jerri Cells Not Reportable 12/13/16 07:49 Bite Cells Not Reportable 12/13/16 07:49 Crenated Cell Not Reportable 12/13/16 07:49 Elliptocytes Not Reportable 12/13/16 07:49 Acanthocytes (Spur) Not Reportable 12/13/16 07:49 Rouleaux Not Reportable 12/13/16 07:49 Hemoglobin C Crystals Not Reportable 12/13/16 07:49 Schistocytes Not Reportable 12/13/16 07:49 Malaria parasites Not Reportable 12/13/16 07:49 Percent Retic 0.23 % (0.78-2.58) L 12/09/16 11:29 Michael Bodies Not Reportable 12/13/16 07:49 Haptoglobin 271 mg/dL (43-212) H 12/08/16 21:30 Hem Pathologist Commnt No 12/13/16 07:49 PT 15.3 Sec. (12.2-14.9) H 12/08/16 19:00 INR 1.22 (0.87-1.13) H 12/08/16 19:00 APTT 36.2 Sec. (24.2-36.6) 12/08/16 19:00 Fibrinogen 563 mg/dl (211-480) H 12/08/16 19:00 D-Dimer 5507.36 ng/mlDDU (0-234) H 12/08/16 19:00 Heparin Anti-Xa, Unfract Negative (Negative) 12/09/16 13:27 POC ABG pH 7.326 (7.35-7.45) L 12/09/16 12:02 POC ABG pCO2 37.7 (35-45) 12/09/16 12:02 POC ABG pO2 115 (80-105) H 12/09/16 12:02 POC ABG HCO3 19.7 12/09/16 12:02 POC ABG Total CO2 21 12/09/16 12:02 POC ABG O2 Sat 98 12/09/16 12:02 POC ABG Base Excess -6 12/09/16 12:02 FiO2 30 % 12/09/16 12:02 Sodium 136 mmol/L (137-145) L 01/07/17 06:17 Potassium 4.7 mmol/L (3.6-5.0) 01/07/17 06:17 Chloride 100.9 mmol/L (98-107) 01/07/17 06:17 Carbon Dioxide 20 mmol/L (22-30) L 01/07/17 06:17 Anion Gap 20 mmol/L 01/07/17 06:17 BUN 40 mg/dL (7-17) H 01/07/17 06:17 Creatinine 1.3 mg/dL (0.7-1.2) H 01/07/17 06:17 Estimated GFR 53 ml/min 01/07/17 06:17 BUN/Creatinine Ratio 30.76 % 01/07/17 06:17 Glucose 376 mg/dL (65-100) H 01/07/17 06:17 POC Glucose 144 (70-105) H 01/07/17 16:20 Lactic Acid 4.20 mmol/L (0.7-2.0) H* 01/07/17 14:00 Calcium 7.7 mg/dL (8.4-10.2) L 01/07/17 06:17 Phosphorus 2.60 mg/dL (2.5-4.5) 12/26/16 Unknown Magnesium 1.40 mg/dL (1.7-2.3) L 01/01/17 01:46 Iron 66 ug/dL (37-170) 12/21/16 05:00 TIBC 193.20 mcg/dL (250-450) L 12/21/16 05:00 Transferrin 138 mg/dl (192-382) L 12/21/16 05:00 Ferritin 321.4 ng/mL (13.0-400.0) 12/21/16 05:00 Total Bilirubin 0.20 mg/dL (0.1-1.2) 01/04/17 06:57 Direct Bilirubin < 0.2 mg/dL (0-0.2) 01/04/17 06:57 Indirect Bilirubin 0.5 mg/dL 12/07/16 21:35 AST 15 units/L (5-40) 01/04/17 06:57 ALT 6 units/L (7-56) L 01/04/17 06:57 Alkaline Phosphatase 161 units/L (35-129) H 01/04/17 06:57 Lactate Dehydrogenase 382 units/L (91-180) H 12/08/16 19:00 Total Creatine Kinase 123 units/L (30-135) 12/04/16 09:55 CK-MB (CK-2) 4.6 ng/mL (0.0-4.0) H 12/04/16 09:55 CK-MB (CK-2) Rel Index 3.7 (0-4) 12/04/16 09:55 Troponin T 0.140 ng/mL (0.00-0.029) H* D 12/04/16 09:55 C-Reactive Protein 39.40 mg/dL (0.00-1.30) H 12/07/16 06:00 Total Protein 5.6 g/dL (6.3-8.2) L 01/04/17 06:57 Albumin 2.7 g/dL (3.9-5) L 01/04/17 06:57 Albumin/Globulin Ratio 0.9 % 01/04/17 06:57 Triglycerides 570 mg/dL (2-149) H 12/04/16 07:55 Cholesterol 221 mg/dL (50-199) H 12/04/16 07:55 LDL Cholesterol Direct TNR 12/04/16 07:55 HDL Cholesterol 37 mg/dL (40-59) L 12/04/16 07:55 Cholesterol/HDL Ratio 5.97 % 12/04/16 07:55 Serotonin Release Assay See scanned report 12/09/16 13:27 Vitamin B12 > 2000 pg/mL (211-911) H 12/09/16 13:27 Folate 8.10 ng/mL (7.3-26.0) 12/09/16 13:27 TSH 1.600 mlU/mL (0.270-4.200) 12/03/16 23:20 Urine Color Yellow (Yellow) 12/04/16 11:25 Urine Turbidity Slightly-cloudy (Clear) 12/04/16 11:25 Urine pH 5.0 (5.0-7.0) 12/04/16 11:25 Ur Specific [place] 1.018 (1.003-1.030) 12/04/16 11:25 Urine Protein 30 mg/dl mg/dL (Negative) 12/04/16 11:25 Urine Glucose (UA) >=500 mg/dL (Negative) 12/04/16 11:25 Urine Ketones Tr mg/dL (Negative) 12/04/16 11:25 Urine Blood Sm (Negative) 12/04/16 11:25 Urine Nitrite Neg (Negative) 12/04/16 11:25 Urine Bilirubin Neg (Negative) 12/04/16 11:25 Urine Urobilinogen < 2.0 mg/dL (<2.0) 12/04/16 11:25 Ur Leukocyte Esterase Neg (Negative) 12/04/16 11:25 Urine WBC (Auto) 4.0 /HPF (0.0-6.0) 12/04/16 11:25 Urine RBC (Auto) 2.0 /HPF (0.0-6.0) 12/04/16 11:25 U Epithel Cells (Auto) < 1.0 /HPF (0-13.0) 12/04/16 11:25 Urine Mucus Few /HPF 12/04/16 11:25 Urine Osmolality 419 Mosm/kg 12/04/16 11:25 Urine Total Volume 200 12/24/16 00:00 Urine Creatinine 239.9 mg/dL (0.1-20.0) H 12/24/16 00:00 Height (in) 64.0 inches 12/24/16 00:00 Weight (lb) 114.0 lbs 12/24/16 00:00 Creatinine Clearance 12 12/24/16 00:00 Protein/Creatinin Ratio 1.12 12/04/16 11:25 Urine Sodium 26 mEq/L 12/04/16 11:25 Urine Total Protein 33 mg/dL (5-11.8) H 12/04/16 11:25 Urine Opiates Screen Presumptive negative 12/04/16 11:25 Urine Methadone Screen Presumptive negative 12/04/16 11:25 Ur Barbiturates Screen Presumptive negative 12/04/16 11:25 Ur Phencyclidine Scrn Presumptive negative 12/04/16 11:25 Ur Amphetamines Screen Presumptive negative 12/04/16 11:25 U Benzodiazepines Scrn Presumptive negative 12/04/16 11:25 Urine Cocaine Screen Presumptive negative 12/04/16 11:25 U Marijuana (THC) Screen Presumptive positive 12/04/16 11:25 Drugs of Abuse Note Disclamer 12/04/16 11:25 Heparin-induced Plt Ab Weak positive (Negative) H 12/09/16 13:27 UF Heparin High Dose 0 % Release 12/09/16 13:27 ADRIENNE UFH Low Dose 0.1 0 % Release 12/09/16 13:27 ADRIENNE UFH Low Dose 0.5 0 % Release 12/09/16 13:27 Hep Bs Antigen Non-reactive (Negative) 12/09/16 13:27 Hep Bs Antibody, Quant <5 mIU/mL (>=10) L 12/09/16 13:27 Hep B Core Total Ab Nonreactive (Nonreactive) 12/09/16 13:27 Hepatitis C Antibody Non-reactive (NonReactive) 12/09/16 13:27 HIV 1&2 Antibody Rapid Non react (Non React) 12/09/16 13:27 HIV P24 Antigen Non react (Non React) 12/09/16 13:27 Schistocytes Smear None seen 12/09/16 11:29 Blood Type O POSITIVE 01/03/17 12:30 Antibody Screen TNR 01/03/17 12:30 ISAIAH Antibody Screen Negative 01/03/17 12:30 Crossmatch See Detail 01/03/17 12:30 - Imaging and Cardiology Abdominal x-ray: image reviewed (unremarkable)
[2017-01-07 23:39] LABS: Bilirubin,Urine NEG (Negative); Blood,Urine NEG (Negative); Ketones,Urine NEG (Negative); Leukocyte Esterase,Urine NEG (Negative); Nitrite,Urine NEG (Negative); Urobilinogen,Urine < 2.0 mg/dL (<2.0)
[2017-01-08] MEDS: ZOSYN/NS 4.5GM/100ML 4.5 GM/100 ML VIAL IV SCH (06:10)
[2017-01-08] MEDS: BENADRYL PO PRN ×3 (06:12→19:03)
[2017-01-08] MEDS: PERCOCET 5/325 PO PRN ×3 (06:12→19:03)
[2017-01-08 07:04] LABS: Hematocrit 23.8 % (30.3-42.9); Hemoglobin 7.8 gm/dl (10.1-14.3); Mean Corpuscular HGB Conc 33 % (30-34); Mean Corpuscular Hemoglobin 30 pg (28-32); Mean Corpuscular Volume 91 fl (79-97); Platelet Count 381 K/mm3 (140-440); Red Blood Count 2.62 M/mm3 (3.65-5.03); Red Cell Distribution Width 16.6 % (13.2-15.2); White Blood Count 9.6 K/mm3 (4.5-11.0)
[2017-01-08 07:20] LABS: BUN/Creatinine Ratio 35.38; Calcium 7.6 mg/dL (8.4-10.2); Chloride 102.9 mmol/L (98-107); Potassium 5.4 mmol/L (3.6-5.0)
--- NOTE | 2017-01-08 07:58 | Progress Note ---
Assessment and Plan Assessment and plan: The patient is a 46-year-old woman with history of insulin-dependent diabetes mellitus, hypertension, recent SAH and dyslipidemia who presented with DKA, AMS and STEMI with V. fib arrest requiring IV amiodarone suppression. she was intubated and subsequently extubated. she was treated with IV insulin drip for documented DKA without ketones documentation but she was acidotic on admission and pressors but subsequently weaned off and transferred to the medical floor. Patient has had multiple admissions in the hospital multiple times and near experience in multiple of the Spesis secondary to Possible aspiration penumonitis. No recurrent fever today. Nursing staff reported a temp of 101 yesterday. Although not documented Except for 99.9 -Spoke to nurse. Culture with no new growth. Lactate improving. with fluids. Monitor for 24 hrs. IF no further fever, will discharge in AM on Doxycline and Levaquin. Patient will need repeat studies outpatient with close follow up with Pulmonary She is ambulating with no difficulty per nursing staff. volume overload. will give a dose of bumex IV x1 She remains on high-dose steroids and expected to be treated for 6 weeks for possible MACHINE I CUTTER. Continue Zosyn and continue doxycycline. While continuing high- dose steroids. We'll continue to monitor cultures were repeated blood cultures at this time. Repeat chest x-ray. Bronchoscopy micro-data reviewed in detail multiple organisms questionable contamination versus colonization. Nevertheless due to recurrent fever will treat. ID input appreciated Patient also noted with leukocytosis-discomfort is secondary to steroids and lactic acidosis disc with secondary although to elevated blood sugar but with the fever. Warrants follow sepsis management We'll give bolus of fluids 2 L total Monitor a.m. labs Uncontrolled DM -Labile-recent increased due to addition of steroids. Blood glucose adjusted. We'll monitor closely for the next 24 hours. -CONTINUE CARB CONSISTENT DIET -Give A liter bolous. -70/30 changed 25 units bid. Continue sliding scale low-dose.. Hold or decrease dose by 50 % when patient not eating due to Gastroenteritis. Gastroenteritis. Nausea and vomiting. start gentle hydration due to renal function. GI reevaluation appreciated. No indication for endoscopy at this time. Acute hypoxic respiratory failure. Resolved. Now extubated, stable right upper lobe opacity. AWAITING PATHOLOGY FROM [facility]. cytology showing no malignant cells, Severe Metabolic acidosis Resolved. Neprhology following Cardiac arrest with PEA arrest-->V. fib/?torsades was shocked twice - Likely from hyperkalemia, currently patient is stable. Was treated with amiodarone -Echo EF 40-45% - No recurrence Acute kidney injury secondary to ATN - Nephrology is following. HD Held remains stable although fluctuate Hyperkalemia- Give Kayxalate. Malnutrition- Moderate: Nutrition consult DKA: - resolved - On sliding insulin Acute metabolic encephalopathy, resolved Nstemi Type 2- Likely from Shock. 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 Disposition: In AM if no Fever -No evidence of cancer on pathology findings. Once patient is stable with no fever for 24 hours we'll discharge. Again stressed patient will definitely need an insurance, application has been stared per social workers. -DVT prophylaxis: SCDs only due to recent SAH History Interval history: Patient seen and examined, looks remarkably improved today Hospitalist Physical - Physical exam Narrative exam: VITAL SIGNS: Reviewed. GENERAL: The patient appeared more energic today , cachetic. Vital signs as documented. HEAD: No signs of head trauma. temporal wasting noted EYES: Pupils are equal. Extraocular motions intact. EARS: Hearing grossly intact. MOUTH: Oropharynx is normal. NECK: No adenopathy, no JVD. CHEST: Chest with diminshed breath sounds bilaterally. No wheezes, rales, or rhonchi CARDIAC: Regular rate and rhythm. S1 and S2, without murmurs, gallops, or rubs. VASCULAR: Trace Edema. Peripheral pulses normal and equal in all extremities. ABDOMEN: Soft, without detectable tenderness. No sign of distention. No rebound or guarding, and no masses palpated. Bowel Sounds normal. MUSCULOSKELETAL: Good range of motion of all major joints. Extremities without clubbing, cyanosis. Trace edema. NEUROLOGIC EXAM: Alert and oriented x 3. No focal sensory or strength deficits. Speech normal. Follows commands. PSYCHIATRIC: Mood normal. SKIN: left heel with pressure changes, no ulcer. right antecubital area with dime size ulceration, eschar. - Constitutional Vitals: Temp Pulse Resp BP Pulse Ox 97.4 F L 95 H 18 158/100 97 01/08/17 00:00 01/08/17 04:00 01/08/17 04:00 01/08/17 04:00 01/08/17 00:00 General appearance: Present: no acute distress, other (chronically ill-appearing ) Results - Labs CBC & Chem 7: 01/08/17 06:40 01/08/17 06:40 Labs: Laboratory Last Values WBC 9.6 K/mm3 (4.5-11.0) 01/08/17 06:40 RBC 2.62 M/mm3 (3.65-5.03) L 01/08/17 06:40 Hgb 7.8 gm/dl (10.1-14.3) L 01/08/17 06:40 Hct 23.8 % (30.3-42.9) L 01/08/17 06:40 MCV 91 fl (79-97) 01/08/17 06:40 MCH 30 pg (28-32) 01/08/17 06:40 MCHC 33 % (30-34) 01/08/17 06:40 RDW 16.6 % (13.2-15.2) H 01/08/17 06:40 Plt Count 381 K/mm3 (140-440) 01/08/17 06:40 Lymph % (Auto) 8.1 % (13.4-35.0) L 12/22/16 06:45 [place] % (Auto) 5.3 % (0.0-7.3) 12/22/16 06:45 Eos % (Auto) 1.4 % (0.0-4.3) 12/22/16 06:45 Baso % (Auto) 0.9 % (0.0-1.8) 12/22/16 06:45 Lymph # 1.4 K/mm3 (1.2-5.4) 12/22/16 06:45 [place] # 0.9 K/mm3 (0.0-0.8) H 12/22/16 06:45 Eos # 0.2 K/mm3 (0.0-0.4) 12/22/16 06:45 Baso # 0.2 K/mm3 (0.0-0.1) H 12/22/16 06:45 Add Manual Diff Complete 12/13/16 07:49 Total Counted 100 12/13/16 07:49 Seg Neutrophils % 84.3 % (40.0-70.0) H 12/22/16 06:45 Seg Neuts % (Manual) 89.0 % (40.0-70.0) H 12/13/16 07:49 Band Neutrophils % 1.0 % 12/13/16 07:49 Lymphocytes % (Manual) 7.0 % (13.4-35.0) L 12/13/16 07:49 Reactive Lymphs % (Man) 0 % 12/13/16 07:49 Monocytes % (Manual) 3.0 % (0.0-7.3) 12/13/16 07:49 Eosinophils % (Manual) 0 % (0.0-4.3) 12/13/16 07:49 Basophils % (Manual) 0 % (0.0-1.8) 12/13/16 07:49 Metamyelocytes % 0 % 12/13/16 07:49 Myelocytes % 0 % 12/13/16 07:49 Promyelocytes % 0 % 12/13/16 07:49 Blast Cells % 0 % 12/13/16 07:49 Nucleated RBC % Not Reportable 12/13/16 07:49 Seg Neutrophils # 14.6 K/mm3 (1.8-7.7) H 12/22/16 06:45 Seg Neutrophils # Man 21.4 K/mm3 (1.8-7.7) H 12/13/16 07:49 Band Neutrophils # 0.2 K/mm3 12/13/16 07:49 Lymphocytes # (Manual) 1.7 K/mm3 (1.2-5.4) 12/13/16 07:49 Abs React Lymphs (Man) 0.0 K/mm3 12/13/16 07:49 Monocytes # (Manual) 0.7 K/mm3 (0.0-0.8) 12/13/16 07:49 Eosinophils # (Manual) 0.0 K/mm3 (0.0-0.4) 12/13/16 07:49 Basophils # (Manual) 0.0 K/mm3 (0.0-0.1) 12/13/16 07:49 Metamyelocytes # 0.0 K/mm3 12/13/16 07:49 Myelocytes # 0.0 K/mm3 12/13/16 07:49 Promyelocytes # 0.0 K/mm3 12/13/16 07:49 Blast Cells # 0.0 K/mm3 12/13/16 07:49 WBC Morphology Not Reportable 12/13/16 07:49 Hypersegmented Neuts Not Reportable 12/13/16 07:49 Hyposegmented Neuts Not Reportable 12/13/16 07:49 Hypogranular Neuts Not Reportable 12/13/16 07:49 Smudge Cells Not Reportable 12/13/16 07:49 Toxic Granulation Not Reportable 12/13/16 07:49 Toxic Vacuolation Not Reportable 12/13/16 07:49 Dohle Bodies Not Reportable 12/13/16 07:49 Pelger-Huet Anomaly Not Reportable 12/13/16 07:49 Mary Rods Not Reportable 12/13/16 07:49 Platelet Estimate Cons 12/13/16 07:49 Clumped Platelets Not Reportable 12/13/16 07:49 Plt Clumps, EDTA Not Reportable 12/13/16 07:49 Large Platelets Rare 12/13/16 07:49 Giant Platelets Not Reportable 12/13/16 07:49 Platelet Satelliting Not Reportable 12/13/16 07:49 Plt Morphology Comment Not Reportable 12/13/16 07:49 RBC Morphology Not Reportable 12/13/16 07:49 Dimorphic RBCs Not Reportable 12/13/16 07:49 Polychromasia Not Reportable 12/13/16 07:49 Hypochromasia 1+ 12/13/16 07:49 Poikilocytosis Not Reportable 12/13/16 07:49 Anisocytosis 1+ 12/13/16 07:49 Microcytosis Not Reportable 12/13/16 07:49 Macrocytosis Not Reportable 12/13/16 07:49 Spherocytes Not Reportable 12/13/16 07:49 Pappenheimer Bodies Not Reportable 12/13/16 07:49 Sickle Cells Not Reportable 12/13/16 07:49 Target Cells Few 12/13/16 07:49 Tear Drop Cells Not Reportable 12/13/16 07:49 Ovalocytes Not Reportable 12/13/16 07:49 Helmet Cells Not Reportable 12/13/16 07:49 [place] Bodies Not Reportable 12/13/16 07:49 [place] Rings Not Reportable 12/13/16 07:49 Jerri Cells Not Reportable 12/13/16 07:49 Bite Cells Not Reportable 12/13/16 07:49 Crenated Cell Not Reportable 12/13/16 07:49 Elliptocytes Not Reportable 12/13/16 07:49 Acanthocytes (Spur) Not Reportable 12/13/16 07:49 Rouleaux Not Reportable 12/13/16 07:49 Hemoglobin C Crystals Not Reportable 12/13/16 07:49 Schistocytes Not Reportable 12/13/16 07:49 Malaria parasites Not Reportable 12/13/16 07:49 Percent Retic 0.23 % (0.78-2.58) L 12/09/16 11:29 Michael Bodies Not Reportable 12/13/16 07:49 Haptoglobin 271 mg/dL (43-212) H 12/08/16 21:30 Hem Pathologist Commnt No 12/13/16 07:49 PT 15.3 Sec. (12.2-14.9) H 12/08/16 19:00 INR 1.22 (0.87-1.13) H 12/08/16 19:00 APTT 36.2 Sec. (24.2-36.6) 12/08/16 19:00 Fibrinogen 563 mg/dl (211-480) H 12/08/16 19:00 D-Dimer 5507.36 ng/mlDDU (0-234) H 12/08/16 19:00 Heparin Anti-Xa, Unfract Negative (Negative) 12/09/16 13:27 POC ABG pH 7.326 (7.35-7.45) L 12/09/16 12:02 POC ABG pCO2 37.7 (35-45) 12/09/16 12:02 POC ABG pO2 115 (80-105) H 12/09/16 12:02 POC ABG HCO3 19.7 12/09/16 12:02 POC ABG Total CO2 21 12/09/16 12:02 POC ABG O2 Sat 98 12/09/16 12:02 POC ABG Base Excess -6 12/09/16 12:02 FiO2 30 % 12/09/16 12:02 Sodium 138 mmol/L (137-145) 01/08/17 06:40 Potassium 5.4 mmol/L (3.6-5.0) H 01/08/17 06:40 Chloride 102.9 mmol/L (98-107) 01/08/17 06:40 Carbon Dioxide 15 mmol/L (22-30) L 01/08/17 06:40 Anion Gap 26 mmol/L 01/08/17 06:40 BUN 46 mg/dL (7-17) H 01/08/17 06:40 Creatinine 1.3 mg/dL (0.7-1.2) H 01/08/17 06:40 Estimated GFR 53 ml/min 01/08/17 06:40 BUN/Creatinine Ratio 35.38 % 01/08/17 06:40 Glucose 340 mg/dL (65-100) H 01/08/17 06:40 POC Glucose 327 (70-105) H 01/08/17 06:05 Lactic Acid 4.20 mmol/L (0.7-2.0) H* 01/07/17 14:00 Calcium 7.6 mg/dL (8.4-10.2) L 01/08/17 06:40 Phosphorus 2.60 mg/dL (2.5-4.5) 12/26/16 Unknown Magnesium 1.40 mg/dL (1.7-2.3) L 01/01/17 01:46 Iron 66 ug/dL (37-170) 12/21/16 05:00 TIBC 193.20 mcg/dL (250-450) L 12/21/16 05:00 Transferrin 138 mg/dl (192-382) L 12/21/16 05:00 Ferritin 321.4 ng/mL (13.0-400.0) 12/21/16 05:00 Total Bilirubin 0.20 mg/dL (0.1-1.2) 01/04/17 06:57 Direct Bilirubin < 0.2 mg/dL (0-0.2) 01/04/17 06:57 Indirect Bilirubin 0.5 mg/dL 12/07/16 21:35 AST 15 units/L (5-40) 01/04/17 06:57 ALT 6 units/L (7-56) L 01/04/17 06:57 Alkaline Phosphatase 161 units/L (35-129) H 01/04/17 06:57 Lactate Dehydrogenase 382 units/L (91-180) H 12/08/16 19:00 Total Creatine Kinase 123 units/L (30-135) 12/04/16 09:55 CK-MB (CK-2) 4.6 ng/mL (0.0-4.0) H 12/04/16 09:55 CK-MB (CK-2) Rel Index 3.7 (0-4) 12/04/16 09:55 Troponin T 0.140 ng/mL (0.00-0.029) H* D 12/04/16 09:55 C-Reactive Protein 39.40 mg/dL (0.00-1.30) H 12/07/16 06:00 Total Protein 5.6 g/dL (6.3-8.2) L 01/04/17 06:57 Albumin 2.7 g/dL (3.9-5) L 01/04/17 06:57 Albumin/Globulin Ratio 0.9 % 01/04/17 06:57 Triglycerides 570 mg/dL (2-149) H 12/04/16 07:55 Cholesterol 221 mg/dL (50-199) H 12/04/16 07:55 LDL Cholesterol Direct TNR 12/04/16 07:55 HDL Cholesterol 37 mg/dL (40-59) L 12/04/16 07:55 Cholesterol/HDL Ratio 5.97 % 12/04/16 07:55 Serotonin Release Assay See scanned report 12/09/16 13:27 Vitamin B12 > 2000 pg/mL (211-911) H 12/09/16 13:27 Folate 8.10 ng/mL (7.3-26.0) 12/09/16 13:27 TSH 1.600 mlU/mL (0.270-4.200) 12/03/16 23:20 Urine Color Yellow (Yellow) 01/07/17 23:03 Urine Turbidity Clear (Clear) 01/07/17 23:03 Urine pH 5.0 (5.0-7.0) 01/07/17 23:03 Ur Specific [place] 1.023 (1.003-1.030) 01/07/17 23:03 Urine Protein 100 mg/dl mg/dL (Negative) 01/07/17 23:03 Urine Glucose (UA) 150 mg/dL (Negative) 01/07/17 23:03 Urine Ketones Neg mg/dL (Negative) 01/07/17 23:03 Urine Blood Neg (Negative) 01/07/17 23:03 Urine Nitrite Neg (Negative) 01/07/17 23:03 Urine Bilirubin Neg (Negative) 01/07/17 23:03 Urine Urobilinogen < 2.0 mg/dL (<2.0) 01/07/17 23:03 Ur Leukocyte Esterase Neg (Negative) 01/07/17 23:03 Urine WBC (Auto) 1.0 /HPF (0.0-6.0) 01/07/17 23:03 Urine RBC (Auto) 1.0 /HPF (0.0-6.0) 01/07/17 23:03 U Epithel Cells (Auto) < 1.0 /HPF (0-13.0) 01/07/17 23:03 Urine Mucus Few /HPF 12/04/16 11:25 Urine Osmolality 419 Mosm/kg 12/04/16 11:25 Urine Total Volume 200 12/24/16 00:00 Urine Creatinine 239.9 mg/dL (0.1-20.0) H 12/24/16 00:00 Height (in) 64.0 inches 12/24/16 00:00 Weight (lb) 114.0 lbs 12/24/16 00:00 Creatinine Clearance 12 12/24/16 00:00 Protein/Creatinin Ratio 1.12 12/04/16 11:25 Urine Sodium 26 mEq/L 12/04/16 11:25 Urine Total Protein 33 mg/dL (5-11.8) H 12/04/16 11:25 Urine Opiates Screen Presumptive negative 12/04/16 11:25 Urine Methadone Screen Presumptive negative 12/04/16 11:25 Ur Barbiturates Screen Presumptive negative 12/04/16 11:25 Ur Phencyclidine Scrn Presumptive negative 12/04/16 11:25 Ur Amphetamines Screen Presumptive negative 12/04/16 11:25 U Benzodiazepines Scrn Presumptive negative 12/04/16 11:25 Urine Cocaine Screen Presumptive negative 12/04/16 11:25 U Marijuana (THC) Screen Presumptive positive 12/04/16 11:25 Drugs of Abuse Note Disclamer 12/04/16 11:25 Heparin-induced Plt Ab Weak positive (Negative) H 12/09/16 13:27 UF Heparin High Dose 0 % Release 12/09/16 13:27 ADRIENNE UFH Low Dose 0.1 0 % Release 12/09/16 13:27 ADRIENNE UFH Low Dose 0.5 0 % Release 12/09/16 13:27 Hep Bs Antigen Non-reactive (Negative) 12/09/16 13:27 Hep Bs Antibody, Quant <5 mIU/mL (>=10) L 12/09/16 13:27 Hep B Core Total Ab Nonreactive (Nonreactive) 12/09/16 13:27 Hepatitis C Antibody Non-reactive (NonReactive) 12/09/16 13:27 HIV 1&2 Antibody Rapid Non react (Non React) 12/09/16 13:27 HIV P24 Antigen Non react (Non React) 12/09/16 13:27 Schistocytes Smear None seen 12/09/16 11:29 Blood Type O POSITIVE 01/03/17 12:30 Antibody Screen TNR 01/03/17 12:30 ISAIAH Antibody Screen Negative 01/03/17 12:30 Crossmatch See Detail 01/03/17 12:30 - Imaging and Cardiology Chest x-ray: image reviewed (lobar infiltrate persit) Abdominal x-ray: image reviewed (no acute pathology)
[2017-01-08] MEDS: NACL 0.9% 1000 ML 1,000 ML IV SCH (08:11)
[2017-01-08] MEDS: NOVOLOG SUB-Q SCH ×3 (09:55→18:29)
[2017-01-08] MEDS: LOPRESSOR PO SCH ×2 (09:57→23:18)
[2017-01-08] MEDS: PEPCID PO SCH (09:57)
[2017-01-08] MEDS: DELTASONE PO SCH (09:57)
[2017-01-08] MEDS ORDERED: BUMEX IV ONE (11:30)
[2017-01-08] MEDS: DOXYCYCLINE HYCLATE 100 MG in NACL 0.9% 250ML 250 ML IV SCH ×2 (11:46→23:27)
--- NOTE | 2017-01-08 12:07 | Progress Note ---
Assessment and Plan (1) Severe sepsis Current Visit: Yes Status: Deleted Plan to address problem: - resolved (2) Acute renal failure Current Visit: No Status: Acute Qualifiers: Acute renal failure type: A Plan to address problem: - improved - per nephrology - s/p Dialysis during this hospitalization (3) Acute respiratory failure with hypoxemia Current Visit: No Status: Acute Plan to address problem: - due to pneumonia - biopsy suggest's boop and on steroid therapy (will be continued based on clinical and radiographic improvement) - i still believe there is a significant pneumonia component and we will treat with AB's based on sensitivity reports from bronch studies (Levaquin and doxycycline) - CXR reviewed (4) DKA (diabetic ketoacidoses) Current Visit: Yes Status: Acute Qualifiers: Diabetes mellitus type: type 1 Diabetes mellitus complication detail: without coma Diabetes mellitus shelter insulin use: D Qualified Code(s): E10.10 - Type 1 diabetes mellitus with ketoacidosis without coma Plan to address problem: - resolved - need to watch sugars closely while on systemic steroids (5) Discharge planning issues Current Visit: No Status: Acute Plan to address problem: - CXR reviewed - also question of fevers today but not recorded ...re-evaluate in am & prn Subjective Date of service: 01/08/17 Principal diagnosis: Anemia, DKA, ARF, cardiac arrest Interval history: Seen and examined at bedside; 24 hour events reviewed; nursing and respiratory care staff consulted; no adverse overnight events reported to me; spiked fevers yesterday reportedly; denies acute chest pains or increased SOB; CXR showing mild improvement in infiltrates. Objective Vital Signs - 12hr 01/08/17 01/08/17 04:00 07:00 Temperature 97.7 F Pulse Rate 95 H 92 H Respiratory 18 18 Rate Blood Pressure 158/100 166/97 O2 Sat by Pulse 98 Oximetry Constitutional: no acute distress, alert Eyes: non-icteric ENT: oropharynx moist Neck: supple, no lymphadenopathy Effort: normal Ascultation: Right: rhonchi, Bilateral: diminished breath sounds, rales (scant) Cardiovascular: regular rate and rhythm Gastrointestinal: normoactive bowel sounds, soft, non-tender, non-distended Integumentary: normal Extremities: no cyanosis, no edema, pulses normal, no ischemia or petechiae Neurologic: normal mental status, non-focal exam, pupils equal and round, motor strength normal and Psychiatric: mood appropriate, affect normal CBC and BMP: 01/09/17 Unknown 01/09/17 Unknown ABG, PT/INR, D-dimer: ABG POC ABG pH 7.326 (7.35-7.45) L 12/09/16 12:02 POC ABG pCO2 37.7 (35-45) 12/09/16 12:02 POC ABG pO2 115 (80-105) H 12/09/16 12:02 POC ABG HCO3 19.7 12/09/16 12:02 POC ABG Total CO2 21 12/09/16 12:02 POC ABG O2 Sat 98 12/09/16 12:02 PT/INR, D-dimer PT 15.3 Sec. (12.2-14.9) H 12/08/16 19:00 INR 1.22 (0.87-1.13) H 12/08/16 19:00 D-Dimer 5507.36 ng/mlDDU (0-234) H 12/08/16 19:00 Abnormal lab findings: Abnormal Labs 12/04/16 12/04/16 12/04/16 01:19 01:36 02:21 WBC RBC Hgb Hct MCV MCHC RDW Plt Count Lymph % (Auto) [place] % (Auto) [place] # Baso # Seg Neutrophils % Seg Neuts % (Manual) Lymphocytes % (Manual) Monocytes % (Manual) Nucleated RBC % Seg Neutrophils # Seg Neutrophils # Man Lymphocytes # (Manual) Monocytes # (Manual) Percent Retic Haptoglobin PT INR Fibrinogen D-Dimer POC ABG pH 6.759 L POC ABG pCO2 POC ABG pO2 437 H Sodium Potassium Chloride Carbon Dioxide BUN Creatinine Glucose POC Glucose > 500 H Lactic Acid Calcium Phosphorus 15.70 H Magnesium 4.30 H Iron TIBC Transferrin Total Bilirubin Direct Bilirubin AST ALT Alkaline Phosphatase Lactate Dehydrogenase CK-MB (CK-2) Troponin T C-Reactive Protein Total Protein Albumin Triglycerides Cholesterol HDL Cholesterol Vitamin B12 Urine Creatinine Urine Total Protein Heparin-induced Plt Ab Hep Bs Antibody, Quant Crossmatch 12/04/16 12/04/16 12/04/16 03:55 04:00 05:11 WBC RBC Hgb Hct MCV MCHC RDW Plt Count Lymph % (Auto) [place] % (Auto) [place] # Baso # Seg Neutrophils % Seg Neuts % (Manual) Lymphocytes % (Manual) Monocytes % (Manual) Nucleated RBC % Seg Neutrophils # Seg Neutrophils # Man Lymphocytes # (Manual) Monocytes # (Manual) Percent Retic Haptoglobin PT INR Fibrinogen D-Dimer POC ABG pH POC ABG pCO2 POC ABG pO2 Sodium Potassium Chloride 91.4 L Carbon Dioxide 8 L* BUN 55 H Creatinine 2.8 H Glucose 1610 H* POC Glucose > 500 H > 500 H Lactic Acid Calcium Phosphorus Magnesium Iron TIBC Transferrin Total Bilirubin Direct Bilirubin AST ALT Alkaline Phosphatase Lactate Dehydrogenase CK-MB (CK-2) Troponin T C-Reactive Protein Total Protein Albumin Triglycerides Cholesterol HDL Cholesterol Vitamin B12 Urine Creatinine Urine Total Protein Heparin-induced Plt Ab Hep Bs Antibody, Quant Crossmatch 12/04/16 12/04/16 12/04/16 05:40 05:54 06:58 WBC RBC Hgb Hct MCV MCHC RDW Plt Count Lymph % (Auto) [place] % (Auto) [place] # Baso # Seg Neutrophils % Seg Neuts % (Manual) Lymphocytes % (Manual) Monocytes % (Manual) Nucleated RBC % Seg Neutrophils # Seg Neutrophils # Man Lymphocytes # (Manual) Monocytes # (Manual) Percent Retic Haptoglobin PT INR Fibrinogen D-Dimer POC ABG pH 7.154 L POC ABG pCO2 27.5 L POC ABG pO2 111 H Sodium Potassium Chloride Carbon Dioxide BUN Creatinine Glucose POC Glucose > 500 H > 500 H Lactic Acid Calcium Phosphorus Magnesium Iron TIBC Transferrin Total Bilirubin Direct Bilirubin AST ALT Alkaline Phosphatase Lactate Dehydrogenase CK-MB (CK-2) Troponin T C-Reactive Protein Total Protein Albumin Triglycerides Cholesterol HDL Cholesterol Vitamin B12 Urine Creatinine Urine Total Protein Heparin-induced Plt Ab Hep Bs Antibody, Quant Crossmatch 12/04/16 12/04/16 12/04/16 07:49 07:55 07:55 WBC RBC Hgb Hct MCV MCHC RDW Plt Count Lymph % (Auto) [place] % (Auto) [place] # Baso # Seg Neutrophils % Seg Neuts % (Manual) Lymphocytes % (Manual) Monocytes % (Manual) Nucleated RBC % Seg Neutrophils # Seg Neutrophils # Man Lymphocytes # (Manual) Monocytes # (Manual) Percent Retic Haptoglobin PT INR Fibrinogen D-Dimer POC ABG pH POC ABG pCO2 POC ABG pO2 Sodium Potassium 3.3 L Chloride Carbon Dioxide 9 L* BUN 53 H Creatinine 2.9 H Glucose 1229 H* POC Glucose > 500 H Lactic Acid Calcium Phosphorus Magnesium Iron TIBC Transferrin Total Bilirubin Direct Bilirubin AST ALT Alkaline Phosphatase Lactate Dehydrogenase CK-MB (CK-2) Troponin T 0.111 H* D C-Reactive Protein Total Protein Albumin Triglycerides 570 H Cholesterol 221 H HDL Cholesterol 37 L Vitamin B12 Urine Creatinine Urine Total Protein Heparin-induced Plt Ab Hep Bs Antibody, Quant Crossmatch 12/04/16 12/04/16 12/04/16 07:55 09:55 09:55 WBC RBC 2.90 L Hgb 8.5 L Hct 30.2 L D MCV 105 H D MCHC 28 L RDW 19.2 H Plt Count Lymph % (Auto) [place] % (Auto) [place] # Baso # Seg Neutrophils % Seg Neuts % (Manual) Lymphocytes % (Manual) 11.0 L Monocytes % (Manual) Nucleated RBC % Seg Neutrophils # Seg Neutrophils # Man Lymphocytes # (Manual) 0.6 L Monocytes # (Manual) Percent Retic Haptoglobin PT INR Fibrinogen D-Dimer POC ABG pH POC ABG pCO2 POC ABG pO2 Sodium Potassium 3.1 L Chloride Carbon Dioxide 7 L* BUN 51 H Creatinine 3.2 H Glucose 969 H* POC Glucose Lactic Acid Calcium 10.4 H D Phosphorus Magnesium Iron TIBC Transferrin Total Bilirubin Direct Bilirubin AST ALT Alkaline Phosphatase Lactate Dehydrogenase CK-MB (CK-2) 4.6 H Troponin T 0.140 H* D C-Reactive Protein Total Protein Albumin Triglycerides Cholesterol HDL Cholesterol Vitamin B12 Urine Creatinine Urine Total Protein Heparin-induced Plt Ab Hep Bs Antibody, Quant Crossmatch 12/04/16 12/04/16 12/04/16 09:55 10:37 11:25 WBC RBC Hgb Hct MCV MCHC RDW Plt Count Lymph % (Auto) [place] % (Auto) [place] # Baso # Seg Neutrophils % Seg Neuts % (Manual) Lymphocytes % (Manual) Monocytes % (Manual) Nucleated RBC % Seg Neutrophils # Seg Neutrophils # Man Lymphocytes # (Manual) Monocytes # (Manual) Percent Retic Haptoglobin PT INR Fibrinogen D-Dimer POC ABG pH 7.215 L POC ABG pCO2 18.8 L POC ABG pO2 193 H Sodium Potassium Chloride Carbon Dioxide BUN Creatinine Glucose POC Glucose Lactic Acid Calcium Phosphorus Magnesium 3.70 H Iron TIBC Transferrin Total Bilirubin Direct Bilirubin AST ALT Alkaline Phosphatase Lactate Dehydrogenase CK-MB (CK-2) Troponin T C-Reactive Protein Total Protein Albumin Triglycerides Cholesterol HDL Cholesterol Vitamin B12 Urine Creatinine 29.5 H Urine Total Protein 33 H Heparin-induced Plt Ab Hep Bs Antibody, Quant Crossmatch 12/04/16 12/04/16 12/04/16 12:00 12:48 13:00 WBC RBC Hgb Hct MCV MCHC RDW Plt Count Lymph % (Auto) [place] % (Auto) [place] # Baso # Seg Neutrophils % Seg Neuts % (Manual) Lymphocytes % (Manual) Monocytes % (Manual) Nucleated RBC % Seg Neutrophils # Seg Neutrophils # Man Lymphocytes # (Manual) Monocytes # (Manual) Percent Retic Haptoglobin PT INR Fibrinogen D-Dimer POC ABG pH POC ABG pCO2 POC ABG pO2 Sodium 149 H 150 H Potassium 3.2 L 3.2 L Chloride 109.1 H Carbon Dioxide 8 L* 8 L* BUN 52 H 49 H Creatinine 3.4 H 3.1 H Glucose 723 H* 574 H* POC Glucose Lactic Acid 18.80 H* Calcium Phosphorus Magnesium Iron TIBC Transferrin Total Bilirubin Direct Bilirubin AST ALT Alkaline Phosphatase Lactate Dehydrogenase CK-MB (CK-2) Troponin T C-Reactive Protein Total Protein Albumin Triglycerides Cholesterol HDL Cholesterol Vitamin B12 Urine Creatinine Urine Total Protein Heparin-induced Plt Ab Hep Bs Antibody, Quant Crossmatch 12/04/16 12/04/16 12/04/16 13:01 14:41 16:06 WBC RBC Hgb Hct MCV MCHC RDW Plt Count Lymph % (Auto) [place] % (Auto) [place] # Baso # Seg Neutrophils % Seg Neuts % (Manual) Lymphocytes % (Manual) Monocytes % (Manual) Nucleated RBC % Seg Neutrophils # Seg Neutrophils # Man Lymphocytes # (Manual) Monocytes # (Manual) Percent Retic Haptoglobin PT INR Fibrinogen D-Dimer POC ABG pH POC ABG pCO2 POC ABG pO2 Sodium 151 H Potassium 3.2 L Chloride 108.1 H Carbon Dioxide 10 L BUN 49 H Creatinine 3.0 H Glucose 383 H POC Glucose 292 H Lactic Acid Calcium Phosphorus Magnesium Iron TIBC Transferrin Total Bilirubin Direct Bilirubin AST ALT Alkaline Phosphatase Lactate Dehydrogenase CK-MB (CK-2) Troponin T C-Reactive Protein 3.50 H Total Protein Albumin Triglycerides Cholesterol HDL Cholesterol Vitamin B12 Urine Creatinine Urine Total Protein Heparin-induced Plt Ab Hep Bs Antibody, Quant Crossmatch 12/04/16 12/04/16 12/04/16 17:15 17:25 18:07 WBC RBC Hgb Hct MCV MCHC RDW Plt Count Lymph % (Auto) [place] % (Auto) [place] # Baso # Seg Neutrophils % Seg Neuts % (Manual) Lymphocytes % (Manual) Monocytes % (Manual) Nucleated RBC % Seg Neutrophils # Seg Neutrophils # Man Lymphocytes # (Manual) Monocytes # (Manual) Percent Retic Haptoglobin PT INR Fibrinogen D-Dimer POC ABG pH 7.255 L POC ABG pCO2 16.9 L POC ABG pO2 169 H Sodium Potassium Chloride Carbon Dioxide BUN Creatinine Glucose POC Glucose 246 H Lactic Acid 18.50 H* Calcium Phosphorus Magnesium Iron TIBC Transferrin Total Bilirubin Direct Bilirubin AST ALT Alkaline Phosphatase Lactate Dehydrogenase CK-MB (CK-2) Troponin T C-Reactive Protein Total Protein Albumin Triglycerides Cholesterol HDL Cholesterol Vitamin B12 Urine Creatinine Urine Total Protein Heparin-induced Plt Ab Hep Bs Antibody, Quant Crossmatch 12/04/16 12/04/16 12/04/16 19:34 20:31 21:15 WBC RBC Hgb Hct MCV MCHC RDW Plt Count Lymph % (Auto) [place] % (Auto) [place] # Baso # Seg Neutrophils % Seg Neuts % (Manual) Lymphocytes % (Manual) Monocytes % (Manual) Nucleated RBC % Seg Neutrophils # Seg Neutrophils # Man Lymphocytes # (Manual) Monocytes # (Manual) Percent Retic Haptoglobin PT INR Fibrinogen D-Dimer POC ABG pH POC ABG pCO2 POC ABG pO2 Sodium Potassium Chloride Carbon Dioxide BUN Creatinine Glucose POC Glucose 189 H 126 H 139 H Lactic Acid Calcium Phosphorus Magnesium Iron TIBC Transferrin Total Bilirubin Direct Bilirubin AST ALT Alkaline Phosphatase Lactate Dehydrogenase CK-MB (CK-2) Troponin T C-Reactive Protein Total Protein Albumin Triglycerides Cholesterol HDL Cholesterol Vitamin B12 Urine Creatinine Urine Total Protein Heparin-induced Plt Ab Hep Bs Antibody, Quant Crossmatch 12/04/16 12/04/16 12/04/16 21:25 22:37 23:35 WBC RBC Hgb Hct MCV MCHC RDW Plt Count Lymph % (Auto) [place] % (Auto) [place] # Baso # Seg Neutrophils % Seg Neuts % (Manual) Lymphocytes % (Manual) Monocytes % (Manual) Nucleated RBC % Seg Neutrophils # Seg Neutrophils # Man Lymphocytes # (Manual) Monocytes # (Manual) Percent Retic Haptoglobin PT INR Fibrinogen D-Dimer POC ABG pH 7.294 L POC ABG pCO2 16.7 L POC ABG pO2 169 H Sodium Potassium Chloride Carbon Dioxide BUN Creatinine Glucose POC Glucose 131 H 106 H Lactic Acid Calcium Phosphorus Magnesium Iron TIBC Transferrin Total Bilirubin Direct Bilirubin AST ALT Alkaline Phosphatase Lactate Dehydrogenase CK-MB (CK-2) Troponin T C-Reactive Protein Total Protein Albumin Triglycerides Cholesterol HDL Cholesterol Vitamin B12 Urine Creatinine Urine Total Protein Heparin-induced Plt Ab Hep Bs Antibody, Quant Crossmatch 12/05/16 12/05/16 12/05/16 02:40 02:50 02:50 WBC RBC Hgb Hct MCV MCHC RDW Plt Count Lymph % (Auto) [place] % (Auto) [place] # Baso # Seg Neutrophils % Seg Neuts % (Manual) Lymphocytes % (Manual) Monocytes % (Manual) Nucleated RBC % Seg Neutrophils # Seg Neutrophils # Man Lymphocytes # (Manual) Monocytes # (Manual) Percent Retic Haptoglobin PT INR Fibrinogen D-Dimer POC ABG pH POC ABG pCO2 POC ABG pO2 Sodium 151 H Potassium Chloride 113.8 H Carbon Dioxide 12 L BUN 46 H Creatinine 3.2 H Glucose 165 H POC Glucose 109 H Lactic Acid 9.80 H* Calcium 8.3 L Phosphorus Magnesium Iron TIBC Transferrin Total Bilirubin Direct Bilirubin AST ALT Alkaline Phosphatase Lactate Dehydrogenase CK-MB (CK-2) Troponin T C-Reactive Protein Total Protein Albumin Triglycerides Cholesterol HDL Cholesterol Vitamin B12 Urine Creatinine Urine Total Protein Heparin-induced Plt Ab Hep Bs Antibody, Quant Crossmatch 12/05/16 12/05/16 12/05/16 04:01 04:30 04:30 WBC 19.1 H RBC 2.91 L Hgb 8.0 L Hct 25.4 L MCV MCHC RDW 17.8 H Plt Count Lymph % (Auto) [place] % (Auto) [place] # Baso # Seg Neutrophils % Seg Neuts % (Manual) 17.0 L Lymphocytes % (Manual) 7.0 L Monocytes % (Manual) Nucleated RBC % 3.0 H Seg Neutrophils # Seg Neutrophils # Man Lymphocytes # (Manual) Monocytes # (Manual) Percent Retic Haptoglobin PT INR Fibrinogen D-Dimer POC ABG pH POC ABG pCO2 POC ABG pO2 Sodium 152 H Potassium Chloride 113.5 H Carbon Dioxide 12 L BUN 47 H Creatinine 3.2 H Glucose 133 H POC Glucose 179 H Lactic Acid Calcium 8.3 L Phosphorus 1.00 L D Magnesium Iron TIBC Transferrin Total Bilirubin Direct Bilirubin AST ALT Alkaline Phosphatase Lactate Dehydrogenase CK-MB (CK-2) Troponin T C-Reactive Protein Total Protein Albumin Triglycerides Cholesterol HDL Cholesterol Vitamin B12 Urine Creatinine Urine Total Protein Heparin-induced Plt Ab Hep Bs Antibody, Quant Crossmatch 12/05/16 12/05/16 12/05/16 05:32 08:01 08:48 WBC RBC Hgb Hct MCV MCHC RDW Plt Count Lymph % (Auto) [place] % (Auto) [place] # Baso # Seg Neutrophils % Seg Neuts % (Manual) Lymphocytes % (Manual) Monocytes % (Manual) Nucleated RBC % Seg Neutrophils # Seg Neutrophils # Man Lymphocytes # (Manual) Monocytes # (Manual) Percent Retic Haptoglobin PT INR Fibrinogen D-Dimer POC ABG pH POC ABG pCO2 17.6 L POC ABG pO2 62 L Sodium Potassium Chloride Carbon Dioxide BUN Creatinine Glucose POC Glucose 126 H 130 H Lactic Acid Calcium Phosphorus Magnesium Iron TIBC Transferrin Total Bilirubin Direct Bilirubin AST ALT Alkaline Phosphatase Lactate Dehydrogenase CK-MB (CK-2) Troponin T C-Reactive Protein Total Protein Albumin Triglycerides Cholesterol HDL Cholesterol Vitamin B12 Urine Creatinine Urine Total Protein Heparin-induced Plt Ab Hep Bs Antibody, Quant Crossmatch 12/05/16 12/05/16 12/05/16 08:54 12:01 15:15 WBC RBC Hgb Hct MCV MCHC RDW Plt Count Lymph % (Auto) [place] % (Auto) [place] # Baso # Seg Neutrophils % Seg Neuts % (Manual) Lymphocytes % (Manual) Monocytes % (Manual) Nucleated RBC % Seg Neutrophils # Seg Neutrophils # Man Lymphocytes # (Manual) Monocytes # (Manual) Percent Retic Haptoglobin PT INR Fibrinogen D-Dimer POC ABG pH POC ABG pCO2 POC ABG pO2 Sodium Potassium Chloride Carbon Dioxide BUN Creatinine Glucose POC Glucose 157 H 117 H 166 H Lactic Acid Calcium Phosphorus Magnesium Iron TIBC Transferrin Total Bilirubin Direct Bilirubin AST ALT Alkaline Phosphatase Lactate Dehydrogenase CK-MB (CK-2) Troponin T C-Reactive Protein Total Protein Albumin Triglycerides Cholesterol HDL Cholesterol Vitamin B12 Urine Creatinine Urine Total Protein Heparin-induced Plt Ab Hep Bs Antibody, Quant Crossmatch 12/05/16 12/05/16 12/05/16 16:10 16:55 17:08 WBC RBC Hgb Hct MCV MCHC RDW Plt Count Lymph % (Auto) [place] % (Auto) [place] # Baso # Seg Neutrophils % Seg Neuts % (Manual) Lymphocytes % (Manual) Monocytes % (Manual) Nucleated RBC % Seg Neutrophils # Seg Neutrophils # Man Lymphocytes # (Manual) Monocytes # (Manual) Percent Retic Haptoglobin PT INR Fibrinogen D-Dimer POC ABG pH POC ABG pCO2 POC ABG pO2 Sodium Potassium Chloride Carbon Dioxide BUN Creatinine Glucose POC Glucose 178 H 169 H Lactic Acid Calcium Phosphorus 5.00 H D Magnesium Iron TIBC Transferrin Total Bilirubin Direct Bilirubin AST ALT Alkaline Phosphatase Lactate Dehydrogenase CK-MB (CK-2) Troponin T C-Reactive Protein Total Protein Albumin Triglycerides Cholesterol HDL Cholesterol Vitamin B12 Urine Creatinine Urine Total Protein Heparin-induced Plt Ab Hep Bs Antibody, Quant Crossmatch 12/05/16 12/05/16 12/05/16 18:08 18:51 20:04 WBC RBC Hgb Hct MCV MCHC RDW Plt Count Lymph % (Auto) [place] % (Auto) [place] # Baso # Seg Neutrophils % Seg Neuts % (Manual) Lymphocytes % (Manual) Monocytes % (Manual) Nucleated RBC % Seg Neutrophils # Seg Neutrophils # Man Lymphocytes # (Manual) Monocytes # (Manual) Percent Retic Haptoglobin PT INR Fibrinogen D-Dimer POC ABG pH POC ABG pCO2 POC ABG pO2 Sodium Potassium Chloride Carbon Dioxide BUN Creatinine Glucose POC Glucose 147 H 113 H 64 L Lactic Acid Calcium Phosphorus Magnesium Iron TIBC Transferrin Total Bilirubin Direct Bilirubin AST ALT Alkaline Phosphatase Lactate Dehydrogenase CK-MB (CK-2) Troponin T C-Reactive Protein Total Protein Albumin Triglycerides Cholesterol HDL Cholesterol Vitamin B12 Urine Creatinine Urine Total Protein Heparin-induced Plt Ab Hep Bs Antibody, Quant Crossmatch 12/05/16 12/05/16 12/05/16 21:34 22:08 23:19 WBC RBC Hgb Hct MCV MCHC RDW Plt Count Lymph % (Auto) [place] % (Auto) [place] # Baso # Seg Neutrophils % Seg Neuts % (Manual) Lymphocytes % (Manual) Monocytes % (Manual) Nucleated RBC % Seg Neutrophils # Seg Neutrophils # Man Lymphocytes # (Manual) Monocytes # (Manual) Percent Retic Haptoglobin PT INR Fibrinogen D-Dimer POC ABG pH 7.303 L POC ABG pCO2 18.3 L POC ABG pO2 73 L Sodium Potassium Chloride Carbon Dioxide BUN Creatinine Glucose POC Glucose 141 H 200 H Lactic Acid Calcium Phosphorus Magnesium Iron TIBC Transferrin Total Bilirubin Direct Bilirubin AST ALT Alkaline Phosphatase Lactate Dehydrogenase CK-MB (CK-2) Troponin T C-Reactive Protein Total Protein Albumin Triglycerides Cholesterol HDL Cholesterol Vitamin B12 Urine Creatinine Urine Total Protein Heparin-induced Plt Ab Hep Bs Antibody, Quant Crossmatch 12/06/16 12/06/16 12/06/16 00:01 01:09 02:00 WBC RBC Hgb Hct MCV MCHC RDW Plt Count Lymph % (Auto) [place] % (Auto) [place] # Baso # Seg Neutrophils % Seg Neuts % (Manual) Lymphocytes % (Manual) Monocytes % (Manual) Nucleated RBC % Seg Neutrophils # Seg Neutrophils # Man Lymphocytes # (Manual) Monocytes # (Manual) Percent Retic Haptoglobin PT INR Fibrinogen D-Dimer POC ABG pH POC ABG pCO2 POC ABG pO2 Sodium Potassium Chloride Carbon Dioxide BUN Creatinine Glucose POC Glucose 211 H 116 H 57 L Lactic Acid Calcium Phosphorus Magnesium Iron TIBC Transferrin Total Bilirubin Direct Bilirubin AST ALT Alkaline Phosphatase Lactate Dehydrogenase CK-MB (CK-2) Troponin T C-Reactive Protein Total Protein Albumin Triglycerides Cholesterol HDL Cholesterol Vitamin B12 Urine Creatinine Urine Total Protein Heparin-induced Plt Ab Hep Bs Antibody, Quant Crossmatch 12/06/16 12/06/16 12/06/16 04:14 04:50 04:50 WBC RBC 2.68 L Hgb 7.6 L Hct 23.2 L MCV MCHC RDW 18.9 H Plt Count Lymph % (Auto) [place] % (Auto) [place] # Baso # Seg Neutrophils % Seg Neuts % (Manual) 32.0 L Lymphocytes % (Manual) Monocytes % (Manual) Nucleated RBC % 3.0 H Seg Neutrophils # Seg Neutrophils # Man Lymphocytes # (Manual) 0.9 L Monocytes # (Manual) Percent Retic Haptoglobin PT INR Fibrinogen D-Dimer POC ABG pH POC ABG pCO2 POC ABG pO2 Sodium Potassium 5.8 H D Chloride 111.5 H Carbon Dioxide 11 L BUN 52 H Creatinine 3.8 H Glucose 186 H POC Glucose 133 H Lactic Acid Calcium 6.5 L D Phosphorus 5.80 H Magnesium Iron TIBC Transferrin Total Bilirubin Direct Bilirubin AST ALT Alkaline Phosphatase Lactate Dehydrogenase CK-MB (CK-2) Troponin T C-Reactive Protein Total Protein Albumin Triglycerides Cholesterol HDL Cholesterol Vitamin B12 Urine Creatinine Urine Total Protein Heparin-induced Plt Ab Hep Bs Antibody, Quant Crossmatch 12/06/16 12/06/16 12/06/16 04:50 05:04 05:07 WBC RBC Hgb Hct MCV MCHC RDW Plt Count Lymph % (Auto) [place] % (Auto) [place] # Baso # Seg Neutrophils % Seg Neuts % (Manual) Lymphocytes % (Manual) Monocytes % (Manual) Nucleated RBC % Seg Neutrophils # Seg Neutrophils # Man Lymphocytes # (Manual) Monocytes # (Manual) Percent Retic Haptoglobin PT INR Fibrinogen D-Dimer POC ABG pH POC ABG pCO2 13.0 L POC ABG pO2 111 H Sodium Potassium Chloride Carbon Dioxide BUN Creatinine Glucose POC Glucose 127 H Lactic Acid 6.50 H* Calcium Phosphorus Magnesium Iron TIBC Transferrin Total Bilirubin Direct Bilirubin AST ALT Alkaline Phosphatase Lactate Dehydrogenase CK-MB (CK-2) Troponin T C-Reactive Protein Total Protein Albumin Triglycerides Cholesterol HDL Cholesterol Vitamin B12 Urine Creatinine Urine Total Protein Heparin-induced Plt Ab Hep Bs Antibody, Quant Crossmatch 12/06/16 12/06/16 12/06/16 06:10 06:54 07:46 WBC RBC Hgb Hct MCV MCHC RDW Plt Count Lymph % (Auto) [place] % (Auto) [place] # Baso # Seg Neutrophils % Seg Neuts % (Manual) Lymphocytes % (Manual) Monocytes % (Manual) Nucleated RBC % Seg Neutrophils # Seg Neutrophils # Man Lymphocytes # (Manual) Monocytes # (Manual) Percent Retic Haptoglobin PT INR Fibrinogen D-Dimer POC ABG pH POC ABG pCO2 POC ABG pO2 Sodium Potassium Chloride Carbon Dioxide BUN Creatinine Glucose POC Glucose 219 H 237 H 158 H Lactic Acid Calcium Phosphorus Magnesium Iron TIBC Transferrin Total Bilirubin Direct Bilirubin AST ALT Alkaline Phosphatase Lactate Dehydrogenase CK-MB (CK-2) Troponin T C-Reactive Protein Total Protein Albumin Triglycerides Cholesterol HDL Cholesterol Vitamin B12 Urine Creatinine Urine Total Protein Heparin-induced Plt Ab Hep Bs Antibody, Quant Crossmatch 12/06/16 12/06/16 12/06/16 08:55 10:27 11:58 WBC RBC Hgb Hct MCV MCHC RDW Plt Count Lymph % (Auto) [place] % (Auto) [place] # Baso # Seg Neutrophils % Seg Neuts % (Manual) Lymphocytes % (Manual) Monocytes % (Manual) Nucleated RBC % Seg Neutrophils # Seg Neutrophils # Man Lymphocytes # (Manual) Monocytes # (Manual) Percent Retic Haptoglobin PT INR Fibrinogen D-Dimer POC ABG pH POC ABG pCO2 POC ABG pO2 Sodium Potassium Chloride Carbon Dioxide BUN Creatinine Glucose POC Glucose 40 L 128 H 144 H Lactic Acid Calcium Phosphorus Magnesium Iron TIBC Transferrin Total Bilirubin Direct Bilirubin AST ALT Alkaline Phosphatase Lactate Dehydrogenase CK-MB (CK-2) Troponin T C-Reactive Protein Total Protein Albumin Triglycerides Cholesterol HDL Cholesterol Vitamin B12 Urine Creatinine Urine Total Protein Heparin-induced Plt Ab Hep Bs Antibody, Quant Crossmatch 12/06/16 12/06/16 12/06/16 18:14 19:00 19:06 WBC RBC Hgb Hct MCV MCHC RDW Plt Count Lymph % (Auto) [place] % (Auto) [place] # Baso # Seg Neutrophils % Seg Neuts % (Manual) Lymphocytes % (Manual) Monocytes % (Manual) Nucleated RBC % Seg Neutrophils # Seg Neutrophils # Man Lymphocytes # (Manual) Monocytes # (Manual) Percent Retic Haptoglobin PT INR Fibrinogen D-Dimer POC ABG pH POC ABG pCO2 POC ABG pO2 Sodium 149 H Potassium 5.6 H Chloride 115.9 H Carbon Dioxide 13 L BUN 56 H Creatinine 4.3 H Glucose 124 H POC Glucose 55 L 148 H Lactic Acid Calcium 6.0 L Phosphorus Magnesium Iron TIBC Transferrin Total Bilirubin Direct Bilirubin AST ALT Alkaline Phosphatase Lactate Dehydrogenase CK-MB (CK-2) Troponin T C-Reactive Protein Total Protein Albumin Triglycerides Cholesterol HDL Cholesterol Vitamin B12 Urine Creatinine Urine Total Protein Heparin-induced Plt Ab Hep Bs Antibody, Quant Crossmatch 12/06/16 12/06/16 12/07/16 21:24 21:51 02:32 WBC RBC Hgb Hct MCV MCHC RDW Plt Count Lymph % (Auto) [place] % (Auto) [place] # Baso # Seg Neutrophils % Seg Neuts % (Manual) Lymphocytes % (Manual) Monocytes % (Manual) Nucleated RBC % Seg Neutrophils # Seg Neutrophils # Man Lymphocytes # (Manual) Monocytes # (Manual) Percent Retic Haptoglobin PT INR Fibrinogen D-Dimer POC ABG pH POC ABG pCO2 17.0 L POC ABG pO2 142 H Sodium Potassium Chloride Carbon Dioxide BUN Creatinine Glucose POC Glucose 107 H 175 H Lactic Acid Calcium Phosphorus Magnesium Iron TIBC Transferrin Total Bilirubin Direct Bilirubin AST ALT Alkaline Phosphatase Lactate Dehydrogenase CK-MB (CK-2) Troponin T C-Reactive Protein Total Protein Albumin Triglycerides Cholesterol HDL Cholesterol Vitamin B12 Urine Creatinine Urine Total Protein Heparin-induced Plt Ab Hep Bs Antibody, Quant Crossmatch 12/07/16 12/07/16 12/07/16 05:01 05:25 06:00 WBC RBC 2.52 L Hgb 7.1 L Hct 22.1 L MCV MCHC RDW 19.3 H Plt Count 90 L Lymph % (Auto) [place] % (Auto) [place] # Baso # Seg Neutrophils % Seg Neuts % (Manual) 75.0 H Lymphocytes % (Manual) 11.0 L Monocytes % (Manual) Nucleated RBC % Seg Neutrophils # Seg Neutrophils # Man Lymphocytes # (Manual) 0.7 L Monocytes # (Manual) Percent Retic Haptoglobin PT INR Fibrinogen D-Dimer POC ABG pH 7.300 L POC ABG pCO2 17.1 L POC ABG pO2 140 H Sodium Potassium Chloride Carbon Dioxide BUN Creatinine Glucose POC Glucose 279 H Lactic Acid Calcium Phosphorus Magnesium Iron TIBC Transferrin Total Bilirubin Direct Bilirubin AST ALT Alkaline Phosphatase Lactate Dehydrogenase CK-MB (CK-2) Troponin T C-Reactive Protein Total Protein Albumin Triglycerides Cholesterol HDL Cholesterol Vitamin B12 Urine Creatinine Urine Total Protein Heparin-induced Plt Ab Hep Bs Antibody, Quant Crossmatch 12/07/16 12/07/16 12/07/16 06:00 06:00 07:30 WBC RBC Hgb Hct MCV MCHC RDW Plt Count Lymph % (Auto) [place] % (Auto) [place] # Baso # Seg Neutrophils % Seg Neuts % (Manual) Lymphocytes % (Manual) Monocytes % (Manual) Nucleated RBC % Seg Neutrophils # Seg Neutrophils # Man Lymphocytes # (Manual) Monocytes # (Manual) Percent Retic Haptoglobin PT INR Fibrinogen D-Dimer POC ABG pH POC ABG pCO2 POC ABG pO2 Sodium Potassium Chloride Carbon Dioxide BUN Creatinine Glucose POC Glucose Lactic Acid 6.90 H* Calcium Phosphorus 6.80 H Magnesium Iron TIBC Transferrin Total Bilirubin Direct Bilirubin AST ALT Alkaline Phosphatase Lactate Dehydrogenase CK-MB (CK-2) Troponin T C-Reactive Protein 39.40 H Total Protein Albumin Triglycerides Cholesterol HDL Cholesterol Vitamin B12 Urine Creatinine Urine Total Protein Heparin-induced Plt Ab Hep Bs Antibody, Quant Crossmatch 12/07/16 12/07/16 12/07/16 08:40 10:53 14:31 WBC RBC Hgb Hct MCV MCHC RDW Plt Count Lymph % (Auto) [place] % (Auto) [place] # Baso # Seg Neutrophils % Seg Neuts % (Manual) Lymphocytes % (Manual) Monocytes % (Manual) Nucleated RBC % Seg Neutrophils # Seg Neutrophils # Man Lymphocytes # (Manual) Monocytes # (Manual) Percent Retic Haptoglobin PT INR Fibrinogen D-Dimer POC ABG pH POC ABG pCO2 POC ABG pO2 Sodium Potassium 7.0 H* D Chloride 112.4 H Carbon Dioxide 8 L* BUN 61 H Creatinine 5.1 H Glucose 213 H POC Glucose 353 H 52 L Lactic Acid Calcium 5.8 L* Phosphorus Magnesium Iron TIBC Transferrin Total Bilirubin Direct Bilirubin AST ALT Alkaline Phosphatase Lactate Dehydrogenase CK-MB (CK-2) Troponin T C-Reactive Protein Total Protein Albumin Triglycerides Cholesterol HDL Cholesterol Vitamin B12 Urine Creatinine Urine Total Protein Heparin-induced Plt Ab Hep Bs Antibody, Quant Crossmatch 12/07/16 12/07/16 12/07/16 14:45 15:33 16:22 WBC RBC Hgb Hct MCV MCHC RDW Plt Count Lymph % (Auto) [place] % (Auto) [place] # Baso # Seg Neutrophils % Seg Neuts % (Manual) Lymphocytes % (Manual) Monocytes % (Manual) Nucleated RBC % Seg Neutrophils # Seg Neutrophils # Man Lymphocytes # (Manual) Monocytes # (Manual) Percent Retic Haptoglobin PT 17.5 H INR 1.44 H Fibrinogen D-Dimer POC ABG pH POC ABG pCO2 POC ABG pO2 Sodium Potassium Chloride Carbon Dioxide BUN Creatinine Glucose POC Glucose < 40 L 118 H Lactic Acid Calcium Phosphorus Magnesium Iron TIBC Transferrin Total Bilirubin Direct Bilirubin AST ALT Alkaline Phosphatase Lactate Dehydrogenase CK-MB (CK-2) Troponin T C-Reactive Protein Total Protein Albumin Triglycerides Cholesterol HDL Cholesterol Vitamin B12 Urine Creatinine Urine Total Protein Heparin-induced Plt Ab Hep Bs Antibody, Quant Crossmatch 12/07/16 12/07/16 12/07/16 21:35 21:35 21:58 WBC RBC Hgb Hct MCV MCHC RDW Plt Count Lymph % (Auto) [place] % (Auto) [place] # Baso # Seg Neutrophils % Seg Neuts % (Manual) Lymphocytes % (Manual) Monocytes % (Manual) Nucleated RBC % Seg Neutrophils # Seg Neutrophils # Man Lymphocytes # (Manual) Monocytes # (Manual) Percent Retic Haptoglobin PT INR Fibrinogen D-Dimer POC ABG pH POC ABG pCO2 POC ABG pO2 Sodium 150 H Potassium 3.3 L D Chloride 111.4 H Carbon Dioxide 21 L D BUN 22 H Creatinine 2.6 H Glucose 23 L* POC Glucose < 40 L Lactic Acid Calcium Phosphorus Magnesium Iron TIBC Transferrin Total Bilirubin 1.40 H Direct Bilirubin 0.9 H AST 94 H ALT 142 H Alkaline Phosphatase 249 H Lactate Dehydrogenase CK-MB (CK-2) Troponin T C-Reactive Protein Total Protein 4.6 L D Albumin 2.1 L Triglycerides Cholesterol HDL Cholesterol Vitamin B12 Urine Creatinine Urine Total Protein Heparin-induced Plt Ab Hep Bs Antibody, Quant Crossmatch 12/07/16 12/08/16 12/08/16 23:31 04:43 04:50 WBC RBC 2.35 L Hgb 6.6 L Hct 20.1 L MCV MCHC RDW 17.8 H Plt Count 48 L Lymph % (Auto) [place] % (Auto) [place] # Baso # Seg Neutrophils % Seg Neuts % (Manual) Lymphocytes % (Manual) Monocytes % (Manual) Nucleated RBC % Seg Neutrophils # Seg Neutrophils # Man Lymphocytes # (Manual) 0.9 L Monocytes # (Manual) Percent Retic Haptoglobin PT INR Fibrinogen D-Dimer POC ABG pH 7.586 H POC ABG pCO2 17.7 L POC ABG pO2 150 H Sodium Potassium Chloride Carbon Dioxide BUN Creatinine Glucose POC Glucose 42 L Lactic Acid Calcium Phosphorus Magnesium Iron TIBC Transferrin Total Bilirubin Direct Bilirubin AST ALT Alkaline Phosphatase Lactate Dehydrogenase CK-MB (CK-2) Troponin T C-Reactive Protein Total Protein Albumin Triglycerides Cholesterol HDL Cholesterol Vitamin B12 Urine Creatinine Urine Total Protein Heparin-induced Plt Ab Hep Bs Antibody, Quant Crossmatch 12/08/16 12/08/16 12/08/16 04:50 04:59 06:54 WBC RBC Hgb Hct MCV MCHC RDW Plt Count Lymph % (Auto) [place] % (Auto) [place] # Baso # Seg Neutrophils % Seg Neuts % (Manual) Lymphocytes % (Manual) Monocytes % (Manual) Nucleated RBC % Seg Neutrophils # Seg Neutrophils # Man Lymphocytes # (Manual) Monocytes # (Manual) Percent Retic Haptoglobin PT INR Fibrinogen D-Dimer POC ABG pH POC ABG pCO2 POC ABG pO2 Sodium 149 H Potassium 3.2 L Chloride 111.8 H Carbon Dioxide 17 L BUN 26 H Creatinine 3.4 H Glucose 163 H POC Glucose 204 H 203 H Lactic Acid Calcium 7.7 L Phosphorus 2.40 L D Magnesium Iron TIBC Transferrin Total Bilirubin Direct Bilirubin AST ALT Alkaline Phosphatase Lactate Dehydrogenase CK-MB (CK-2) Troponin T C-Reactive Protein Total Protein Albumin Triglycerides Cholesterol HDL Cholesterol Vitamin B12 Urine Creatinine Urine Total Protein Heparin-induced Plt Ab Hep Bs Antibody, Quant Crossmatch 12/08/16 12/08/16 12/08/16 08:04 08:46 08:46 WBC RBC Hgb Hct MCV MCHC RDW Plt Count Lymph % (Auto) [place] % (Auto) [place] # Baso # Seg Neutrophils % Seg Neuts % (Manual) Lymphocytes % (Manual) Monocytes % (Manual) Nucleated RBC % Seg Neutrophils # Seg Neutrophils # Man Lymphocytes # (Manual) Monocytes # (Manual) Percent Retic Haptoglobin PT INR Fibrinogen D-Dimer POC ABG pH POC ABG pCO2 POC ABG pO2 Sodium 147 H Potassium 2.9 L* Chloride 110.6 H Carbon Dioxide 17 L BUN 28 H Creatinine 3.6 H Glucose 127 H POC Glucose 205 H Lactic Acid Calcium 7.3 L Phosphorus Magnesium Iron TIBC Transferrin Total Bilirubin Direct Bilirubin AST ALT Alkaline Phosphatase Lactate Dehydrogenase CK-MB (CK-2) Troponin T C-Reactive Protein Total Protein Albumin Triglycerides Cholesterol HDL Cholesterol Vitamin B12 Urine Creatinine Urine Total Protein Heparin-induced Plt Ab Hep Bs Antibody, Quant Crossmatch See Detail 12/08/16 12/08/16 12/08/16 12:36 19:00 19:00 WBC RBC Hgb Hct MCV MCHC RDW Plt Count Lymph % (Auto) [place] % (Auto) [place] # Baso # Seg Neutrophils % Seg Neuts % (Manual) Lymphocytes % (Manual) Monocytes % (Manual) Nucleated RBC % Seg Neutrophils # Seg Neutrophils # Man Lymphocytes # (Manual) Monocytes # (Manual) Percent Retic Haptoglobin PT 15.3 H INR 1.22 H Fibrinogen 563 H D-Dimer 5507.36 H POC ABG pH POC ABG pCO2 POC ABG pO2 Sodium Potassium Chloride Carbon Dioxide 21 L BUN Creatinine 1.7 H D Glucose 155 H POC Glucose 181 H Lactic Acid Calcium Phosphorus Magnesium Iron TIBC Transferrin Total Bilirubin Direct Bilirubin AST ALT Alkaline Phosphatase Lactate Dehydrogenase CK-MB (CK-2) Troponin T C-Reactive Protein Total Protein Albumin Triglycerides Cholesterol HDL Cholesterol Vitamin B12 Urine Creatinine Urine Total Protein Heparin-induced Plt Ab Hep Bs Antibody, Quant Crossmatch 12/08/16 12/08/16 12/08/16 19:00 19:00 21:30 WBC RBC 2.76 L Hgb 7.8 L Hct 23.7 L MCV MCHC RDW 17.0 H Plt Count 38 L Lymph % (Auto) [place] % (Auto) [place] # Baso # Seg Neutrophils % Seg Neuts % (Manual) Lymphocytes % (Manual) Monocytes % (Manual) Nucleated RBC % Seg Neutrophils # Seg Neutrophils # Man Lymphocytes # (Manual) Monocytes # (Manual) Percent Retic Haptoglobin 271 H PT INR Fibrinogen D-Dimer POC ABG pH POC ABG pCO2 POC ABG pO2 Sodium Potassium Chloride Carbon Dioxide BUN Creatinine Glucose POC Glucose Lactic Acid Calcium Phosphorus Magnesium Iron TIBC Transferrin Total Bilirubin Direct Bilirubin AST ALT Alkaline Phosphatase Lactate Dehydrogenase 382 H CK-MB (CK-2) Troponin T C-Reactive Protein Total Protein Albumin Triglycerides Cholesterol HDL Cholesterol Vitamin B12 Urine Creatinine Urine Total Protein Heparin-induced Plt Ab Hep Bs Antibody, Quant Crossmatch 12/08/16 12/08/16 12/09/16 23:32 23:44 05:22 WBC RBC Hgb Hct MCV MCHC RDW Plt Count Lymph % (Auto) [place] % (Auto) [place] # Baso # Seg Neutrophils % Seg Neuts % (Manual) Lymphocytes % (Manual) Monocytes % (Manual) Nucleated RBC % Seg Neutrophils # Seg Neutrophils # Man Lymphocytes # (Manual) Monocytes # (Manual) Percent Retic Haptoglobin PT INR Fibrinogen D-Dimer POC ABG pH 7.498 H POC ABG pCO2 25.2 L POC ABG pO2 137 H Sodium Potassium Chloride Carbon Dioxide BUN Creatinine Glucose POC Glucose 311 H 113 H Lactic Acid Calcium Phosphorus Magnesium Iron TIBC Transferrin Total Bilirubin Direct Bilirubin AST ALT Alkaline Phosphatase Lactate Dehydrogenase CK-MB (CK-2) Troponin T C-Reactive Protein Total Protein Albumin Triglycerides Cholesterol HDL Cholesterol Vitamin B12 Urine Creatinine Urine Total Protein Heparin-induced Plt Ab Hep Bs Antibody, Quant Crossmatch 12/09/16 12/09/16 12/09/16 06:00 11:29 11:59 WBC RBC Hgb Hct MCV MCHC RDW Plt Count Lymph % (Auto) [place] % (Auto) [place] # Baso # Seg Neutrophils % Seg Neuts % (Manual) Lymphocytes % (Manual) Monocytes % (Manual) Nucleated RBC % Seg Neutrophils # Seg Neutrophils # Man Lymphocytes # (Manual) Monocytes # (Manual) Percent Retic 0.23 L Haptoglobin PT INR Fibrinogen D-Dimer POC ABG pH POC ABG pCO2 POC ABG pO2 Sodium Potassium Chloride 110.2 H Carbon Dioxide 18 L BUN 19 H Creatinine 2.5 H Glucose 105 H POC Glucose 254 H Lactic Acid Calcium Phosphorus 2.00 L Magnesium Iron TIBC Transferrin Total Bilirubin Direct Bilirubin AST ALT Alkaline Phosphatase Lactate Dehydrogenase CK-MB (CK-2) Troponin T C-Reactive Protein Total Protein Albumin Triglycerides Cholesterol HDL Cholesterol Vitamin B12 Urine Creatinine Urine Total Protein Heparin-induced Plt Ab Hep Bs Antibody, Quant Crossmatch 12/09/16 12/09/16 12/09/16 12:02 13:27 13:27 WBC RBC Hgb Hct MCV MCHC RDW Plt Count Lymph % (Auto) [place] % (Auto) [place] # Baso # Seg Neutrophils % Seg Neuts % (Manual) Lymphocytes % (Manual) Monocytes % (Manual) Nucleated RBC % Seg Neutrophils # Seg Neutrophils # Man Lymphocytes # (Manual) Monocytes # (Manual) Percent Retic Haptoglobin PT INR Fibrinogen D-Dimer POC ABG pH 7.326 L POC ABG pCO2 POC ABG pO2 115 H Sodium Potassium Chloride Carbon Dioxide BUN Creatinine Glucose POC Glucose Lactic Acid Calcium Phosphorus Magnesium Iron 15 L TIBC 134 L Transferrin Total Bilirubin Direct Bilirubin AST ALT Alkaline Phosphatase Lactate Dehydrogenase CK-MB (CK-2) Troponin T C-Reactive Protein Total Protein Albumin Triglycerides Cholesterol HDL Cholesterol Vitamin B12 > 2000 H Urine Creatinine Urine Total Protein Heparin-induced Plt Ab Hep Bs Antibody, Quant Crossmatch 12/09/16 12/09/16 12/09/16 13:27 13:27 16:28 WBC RBC Hgb Hct MCV MCHC RDW Plt Count Lymph % (Auto) [place] % (Auto) [place] # Baso # Seg Neutrophils % Seg Neuts % (Manual) Lymphocytes % (Manual) Monocytes % (Manual) Nucleated RBC % Seg Neutrophils # Seg Neutrophils # Man Lymphocytes # (Manual) Monocytes # (Manual) Percent Retic Haptoglobin PT INR Fibrinogen D-Dimer POC ABG pH POC ABG pCO2 POC ABG pO2 Sodium Potassium Chloride Carbon Dioxide BUN Creatinine Glucose POC Glucose 199 H Lactic Acid Calcium Phosphorus Magnesium Iron TIBC Transferrin Total Bilirubin Direct Bilirubin AST ALT Alkaline Phosphatase Lactate Dehydrogenase CK-MB (CK-2) Troponin T C-Reactive Protein Total Protein Albumin Triglycerides Cholesterol HDL Cholesterol Vitamin B12 Urine Creatinine Urine Total Protein Heparin-induced Plt Ab Weak positive H Hep Bs Antibody, Quant <5 L Crossmatch 12/09/16 12/09/16 12/10/16 23:27 Unknown 05:36 WBC 11.3 H RBC 2.92 L Hgb 8.4 L Hct 25.3 L MCV MCHC RDW 16.9 H Plt Count 31 L Lymph % (Auto) [place] % (Auto) [place] # Baso # Seg Neutrophils % Seg Neuts % (Manual) Lymphocytes % (Manual) Monocytes % (Manual) Nucleated RBC % Seg Neutrophils # Seg Neutrophils # Man Lymphocytes # (Manual) Monocytes # (Manual) Percent Retic Haptoglobin PT INR Fibrinogen D-Dimer POC ABG pH POC ABG pCO2 POC ABG pO2 Sodium Potassium Chloride Carbon Dioxide BUN Creatinine Glucose POC Glucose 247 H 248 H Lactic Acid Calcium Phosphorus Magnesium Iron TIBC Transferrin Total Bilirubin Direct Bilirubin AST ALT Alkaline Phosphatase Lactate Dehydrogenase CK-MB (CK-2) Troponin T C-Reactive Protein Total Protein Albumin Triglycerides Cholesterol HDL Cholesterol Vitamin B12 Urine Creatinine Urine Total Protein Heparin-induced Plt Ab Hep Bs Antibody, Quant Crossmatch 12/10/16 12/10/16 12/10/16 09:55 09:55 11:49 WBC 21.2 H RBC 3.37 L Hgb 9.6 L Hct 29.5 L MCV MCHC RDW 16.3 H Plt Count 102 L D Lymph % (Auto) [place] % (Auto) [place] # Baso # Seg Neutrophils % Seg Neuts % (Manual) Lymphocytes % (Manual) Monocytes % (Manual) Nucleated RBC % Seg Neutrophils # Seg Neutrophils # Man Lymphocytes # (Manual) Monocytes # (Manual) Percent Retic Haptoglobin PT INR Fibrinogen D-Dimer POC ABG pH POC ABG pCO2 POC ABG pO2 Sodium Potassium Chloride 107.4 H Carbon Dioxide 21 L BUN 37 H Creatinine 4.2 H D Glucose 174 H POC Glucose 265 H Lactic Acid Calcium Phosphorus Magnesium Iron TIBC Transferrin Total Bilirubin Direct Bilirubin AST ALT Alkaline Phosphatase Lactate Dehydrogenase CK-MB (CK-2) Troponin T C-Reactive Protein Total Protein Albumin Triglycerides Cholesterol HDL Cholesterol Vitamin B12 Urine Creatinine Urine Total Protein Heparin-induced Plt Ab Hep Bs Antibody, Quant Crossmatch 12/10/16 12/10/16 12/11/16 17:56 23:44 04:30 WBC 23.5 H RBC 3.46 L Hgb 9.7 L Hct 30.1 L MCV MCHC RDW 16.4 H Plt Count 115 L Lymph % (Auto) [place] % (Auto) [place] # Baso # Seg Neutrophils % Seg Neuts % (Manual) 84.0 H Lymphocytes % (Manual) 5.0 L Monocytes % (Manual) 10.0 H Nucleated RBC % 1.0 H Seg Neutrophils # Seg Neutrophils # Man 19.7 H Lymphocytes # (Manual) Monocytes # (Manual) 2.4 H Percent Retic Haptoglobin PT INR Fibrinogen D-Dimer POC ABG pH POC ABG pCO2 POC ABG pO2 Sodium Potassium Chloride Carbon Dioxide BUN Creatinine Glucose POC Glucose 118 H 378 H Lactic Acid Calcium Phosphorus Magnesium Iron TIBC Transferrin Total Bilirubin Direct Bilirubin AST ALT Alkaline Phosphatase Lactate Dehydrogenase CK-MB (CK-2) Troponin T C-Reactive Protein Total Protein Albumin Triglycerides Cholesterol HDL Cholesterol Vitamin B12 Urine Creatinine Urine Total Protein Heparin-induced Plt Ab Hep Bs Antibody, Quant Crossmatch 12/11/16 12/11/16 12/11/16 04:30 05:33 12:48 WBC RBC Hgb Hct MCV MCHC RDW Plt Count Lymph % (Auto) [place] % (Auto) [place] # Baso # Seg Neutrophils % Seg Neuts % (Manual) Lymphocytes % (Manual) Monocytes % (Manual) Nucleated RBC % Seg Neutrophils # Seg Neutrophils # Man Lymphocytes # (Manual) Monocytes # (Manual) Percent Retic Haptoglobin PT INR Fibrinogen D-Dimer POC ABG pH POC ABG pCO2 POC ABG pO2 Sodium Potassium Chloride Carbon Dioxide 21 L BUN 50 H Creatinine 4.8 H Glucose 303 H POC Glucose 335 H 325 H Lactic Acid Calcium 8.2 L Phosphorus Magnesium Iron TIBC Transferrin Total Bilirubin Direct Bilirubin AST ALT Alkaline Phosphatase Lactate Dehydrogenase CK-MB (CK-2) Troponin T C-Reactive Protein Total Protein Albumin Triglycerides Cholesterol HDL Cholesterol Vitamin B12 Urine Creatinine Urine Total Protein Heparin-induced Plt Ab Hep Bs Antibody, Quant Crossmatch 12/11/16 12/11/16 12/12/16 17:49 21:16 00:49 WBC RBC Hgb Hct MCV MCHC RDW Plt Count Lymph % (Auto) [place] % (Auto) [place] # Baso # Seg Neutrophils % Seg Neuts % (Manual) Lymphocytes % (Manual) Monocytes % (Manual) Nucleated RBC % Seg Neutrophils # Seg Neutrophils # Man Lymphocytes # (Manual) Monocytes # (Manual) Percent Retic Haptoglobin PT INR Fibrinogen D-Dimer POC ABG pH POC ABG pCO2 POC ABG pO2 Sodium Potassium Chloride Carbon Dioxide BUN Creatinine Glucose POC Glucose 368 H 162 H 225 H Lactic Acid Calcium Phosphorus Magnesium Iron TIBC Transferrin Total Bilirubin Direct Bilirubin AST ALT Alkaline Phosphatase Lactate Dehydrogenase CK-MB (CK-2) Troponin T C-Reactive Protein Total Protein Albumin Triglycerides Cholesterol HDL Cholesterol Vitamin B12 Urine Creatinine Urine Total Protein Heparin-induced Plt Ab Hep Bs Antibody, Quant Crossmatch 12/12/16 12/12/16 12/12/16 06:09 07:52 08:18 WBC 24.1 H RBC 3.16 L Hgb 9.0 L Hct 29.4 L MCV MCHC RDW 16.6 H Plt Count 96 L Lymph % (Auto) [place] % (Auto) [place] # Baso # Seg Neutrophils % Seg Neuts % (Manual) 75.0 H Lymphocytes % (Manual) Monocytes % (Manual) Nucleated RBC % Seg Neutrophils # Seg Neutrophils # Man 18.1 H Lymphocytes # (Manual) Monocytes # (Manual) 1.4 H Percent Retic Haptoglobin PT INR Fibrinogen D-Dimer POC ABG pH POC ABG pCO2 POC ABG pO2 Sodium Potassium Chloride Carbon Dioxide BUN Creatinine Glucose POC Glucose 428 H 418 H Lactic Acid Calcium Phosphorus Magnesium Iron TIBC Transferrin Total Bilirubin Direct Bilirubin AST ALT Alkaline Phosphatase Lactate Dehydrogenase CK-MB (CK-2) Troponin T C-Reactive Protein Total Protein Albumin Triglycerides Cholesterol HDL Cholesterol Vitamin B12 Urine Creatinine Urine Total Protein Heparin-induced Plt Ab Hep Bs Antibody, Quant Crossmatch 12/12/16 12/12/16 12/12/16 08:18 11:31 17:03 WBC RBC Hgb Hct MCV MCHC RDW Plt Count Lymph % (Auto) [place] % (Auto) [place] # Baso # Seg Neutrophils % Seg Neuts % (Manual) Lymphocytes % (Manual) Monocytes % (Manual) Nucleated RBC % Seg Neutrophils # Seg Neutrophils # Man Lymphocytes # (Manual) Monocytes # (Manual) Percent Retic Haptoglobin PT INR Fibrinogen D-Dimer POC ABG pH POC ABG pCO2 POC ABG pO2 Sodium Potassium Chloride Carbon Dioxide 12 L D BUN 41 H Creatinine 4.5 H Glucose 369 H POC Glucose 212 H 422 H Lactic Acid Calcium Phosphorus Magnesium Iron TIBC Transferrin Total Bilirubin Direct Bilirubin AST ALT Alkaline Phosphatase Lactate Dehydrogenase CK-MB (CK-2) Troponin T C-Reactive Protein Total Protein Albumin Triglycerides Cholesterol HDL Cholesterol Vitamin B12 Urine Creatinine Urine Total Protein Heparin-induced Plt Ab Hep Bs Antibody, Quant Crossmatch 12/12/16 12/13/16 12/13/16 21:35 07:49 07:49 WBC 24.0 H RBC 2.90 L Hgb 8.3 L Hct 25.8 L MCV MCHC RDW 15.5 H Plt Count 120 L Lymph % (Auto) [place] % (Auto) [place] # Baso # Seg Neutrophils % Seg Neuts % (Manual) 89.0 H Lymphocytes % (Manual) 7.0 L Monocytes % (Manual) Nucleated RBC % Seg Neutrophils # Seg Neutrophils # Man 21.4 H Lymphocytes # (Manual) Monocytes # (Manual) Percent Retic Haptoglobin PT INR Fibrinogen D-Dimer POC ABG pH POC ABG pCO2 POC ABG pO2 Sodium Potassium 3.2 L Chloride Carbon Dioxide BUN 21 H Creatinine 3.0 H Glucose 21 L* POC Glucose 185 H Lactic Acid Calcium Phosphorus Magnesium Iron TIBC Transferrin Total Bilirubin Direct Bilirubin AST ALT Alkaline Phosphatase Lactate Dehydrogenase CK-MB (CK-2) Troponin T C-Reactive Protein Total Protein Albumin Triglycerides Cholesterol HDL Cholesterol Vitamin B12 Urine Creatinine Urine Total Protein Heparin-induced Plt Ab Hep Bs Antibody, Quant Crossmatch 12/13/16 12/13/16 12/13/16 09:57 11:02 16:52 WBC RBC Hgb Hct MCV MCHC RDW Plt Count Lymph % (Auto) [place] % (Auto) [place] # Baso # Seg Neutrophils % Seg Neuts % (Manual) Lymphocytes % (Manual) Monocytes % (Manual) Nucleated RBC % Seg Neutrophils # Seg Neutrophils # Man Lymphocytes # (Manual) Monocytes # (Manual) Percent Retic Haptoglobin PT INR Fibrinogen D-Dimer POC ABG pH POC ABG pCO2 POC ABG pO2 Sodium Potassium Chloride Carbon Dioxide BUN Creatinine Glucose POC Glucose < 40 L 231 H 312 H Lactic Acid Calcium Phosphorus Magnesium Iron TIBC Transferrin Total Bilirubin Direct Bilirubin AST ALT Alkaline Phosphatase Lactate Dehydrogenase CK-MB (CK-2) Troponin T C-Reactive Protein Total Protein Albumin Triglycerides Cholesterol HDL Cholesterol Vitamin B12 Urine Creatinine Urine Total Protein Heparin-induced Plt Ab Hep Bs Antibody, Quant Crossmatch 12/13/16 12/14/16 12/14/16 21:32 07:07 07:07 WBC 16.7 H RBC 2.80 L Hgb 7.9 L Hct 24.7 L MCV MCHC RDW 15.4 H Plt Count 131 L Lymph % (Auto) 13.1 L [place] % (Auto) [place] # 1.2 H Baso # Seg Neutrophils % 78.3 H Seg Neuts % (Manual) Lymphocytes % (Manual) Monocytes % (Manual) Nucleated RBC % Seg Neutrophils # 13.1 H Seg Neutrophils # Man Lymphocytes # (Manual) Monocytes # (Manual) Percent Retic Haptoglobin PT INR Fibrinogen D-Dimer POC ABG pH POC ABG pCO2 POC ABG pO2 Sodium Potassium 3.5 L Chloride Carbon Dioxide BUN 30 H Creatinine 4.6 H D Glucose 181 H POC Glucose 275 H Lactic Acid Calcium 7.7 L Phosphorus Magnesium Iron TIBC Transferrin Total Bilirubin Direct Bilirubin AST ALT Alkaline Phosphatase Lactate Dehydrogenase CK-MB (CK-2) Troponin T C-Reactive Protein Total Protein Albumin Triglycerides Cholesterol HDL Cholesterol Vitamin B12 Urine Creatinine Urine Total Protein Heparin-induced Plt Ab Hep Bs Antibody, Quant Crossmatch 12/14/16 12/14/16 12/14/16 07:46 11:35 16:24 WBC RBC Hgb Hct MCV MCHC RDW Plt Count Lymph % (Auto) [place] % (Auto) [place] # Baso # Seg Neutrophils % Seg Neuts % (Manual) Lymphocytes % (Manual) Monocytes % (Manual) Nucleated RBC % Seg Neutrophils # Seg Neutrophils # Man Lymphocytes # (Manual) Monocytes # (Manual) Percent Retic Haptoglobin PT INR Fibrinogen D-Dimer POC ABG pH POC ABG pCO2 POC ABG pO2 Sodium Potassium Chloride Carbon Dioxide BUN Creatinine Glucose POC Glucose 189 H 254 H 466 H Lactic Acid Calcium Phosphorus Magnesium Iron TIBC Transferrin Total Bilirubin Direct Bilirubin AST ALT Alkaline Phosphatase Lactate Dehydrogenase CK-MB (CK-2) Troponin T C-Reactive Protein Total Protein Albumin Triglycerides Cholesterol HDL Cholesterol Vitamin B12 Urine Creatinine Urine Total Protein Heparin-induced Plt Ab Hep Bs Antibody, Quant Crossmatch 12/14/16 12/15/16 12/15/16 20:57 06:27 07:46 WBC RBC Hgb Hct MCV MCHC RDW Plt Count Lymph % (Auto) [place] % (Auto) [place] # Baso # Seg Neutrophils % Seg Neuts % (Manual) Lymphocytes % (Manual) Monocytes % (Manual) Nucleated RBC % Seg Neutrophils # Seg Neutrophils # Man Lymphocytes # (Manual) Monocytes # (Manual) Percent Retic Haptoglobin PT INR Fibrinogen D-Dimer POC ABG pH POC ABG pCO2 POC ABG pO2 Sodium Potassium Chloride Carbon Dioxide BUN Creatinine Glucose POC Glucose 301 H 183 H 231 H Lactic Acid Calcium Phosphorus Magnesium Iron TIBC Transferrin Total Bilirubin Direct Bilirubin AST ALT Alkaline Phosphatase Lactate Dehydrogenase CK-MB (CK-2) Troponin T C-Reactive Protein Total Protein Albumin Triglycerides Cholesterol HDL Cholesterol Vitamin B12 Urine Creatinine Urine Total Protein Heparin-induced Plt Ab Hep Bs Antibody, Quant Crossmatch 12/15/16 12/15/16 12/15/16 11:38 15:34 20:51 WBC RBC Hgb Hct MCV MCHC RDW Plt Count Lymph % (Auto) [place] % (Auto) [place] # Baso # Seg Neutrophils % Seg Neuts % (Manual) Lymphocytes % (Manual) Monocytes % (Manual) Nucleated RBC % Seg Neutrophils # Seg Neutrophils # Man Lymphocytes # (Manual) Monocytes # (Manual) Percent Retic Haptoglobin PT INR Fibrinogen D-Dimer POC ABG pH POC ABG pCO2 POC ABG pO2 Sodium Potassium Chloride Carbon Dioxide BUN Creatinine Glucose POC Glucose 375 H 313 H 274 H Lactic Acid Calcium Phosphorus Magnesium Iron TIBC Transferrin Total Bilirubin Direct Bilirubin AST ALT Alkaline Phosphatase Lactate Dehydrogenase CK-MB (CK-2) Troponin T C-Reactive Protein Total Protein Albumin Triglycerides Cholesterol HDL Cholesterol Vitamin B12 Urine Creatinine Urine Total Protein Heparin-induced Plt Ab Hep Bs Antibody, Quant Crossmatch 12/16/16 12/16/16 12/16/16 08:26 09:12 17:13 WBC RBC Hgb Hct MCV MCHC RDW Plt Count Lymph % (Auto) [place] % (Auto) [place] # Baso # Seg Neutrophils % Seg Neuts % (Manual) Lymphocytes % (Manual) Monocytes % (Manual) Nucleated RBC % Seg Neutrophils # Seg Neutrophils # Man Lymphocytes # (Manual) Monocytes # (Manual) Percent Retic Haptoglobin PT INR Fibrinogen D-Dimer POC ABG pH POC ABG pCO2 POC ABG pO2 Sodium Potassium Chloride Carbon Dioxide BUN Creatinine Glucose POC Glucose 59 L 127 H > 500 H Lactic Acid Calcium Phosphorus Magnesium Iron TIBC Transferrin Total Bilirubin Direct Bilirubin AST ALT Alkaline Phosphatase Lactate Dehydrogenase CK-MB (CK-2) Troponin T C-Reactive Protein Total Protein Albumin Triglycerides Cholesterol HDL Cholesterol Vitamin B12 Urine Creatinine Urine Total Protein Heparin-induced Plt Ab Hep Bs Antibody, Quant Crossmatch 12/16/16 12/16/16 12/16/16 22:59 Unknown Unknown WBC 17.2 H RBC 2.83 L Hgb 7.9 L Hct 24.4 L MCV MCHC RDW Plt Count Lymph % (Auto) 9.2 L [place] % (Auto) [place] # 0.9 H Baso # Seg Neutrophils % 84.1 H Seg Neuts % (Manual) Lymphocytes % (Manual) Monocytes % (Manual) Nucleated RBC % Seg Neutrophils # 14.5 H Seg Neutrophils # Man Lymphocytes # (Manual) Monocytes # (Manual) Percent Retic Haptoglobin PT INR Fibrinogen D-Dimer POC ABG pH POC ABG pCO2 POC ABG pO2 Sodium Potassium Chloride Carbon Dioxide BUN 43 H Creatinine 5.4 H Glucose 131 H POC Glucose 320 H Lactic Acid Calcium 6.9 L Phosphorus Magnesium Iron TIBC Transferrin Total Bilirubin Direct Bilirubin AST ALT Alkaline Phosphatase Lactate Dehydrogenase CK-MB (CK-2) Troponin T C-Reactive Protein Total Protein Albumin Triglycerides Cholesterol HDL Cholesterol Vitamin B12 Urine Creatinine Urine Total Protein Heparin-induced Plt Ab Hep Bs Antibody, Quant Crossmatch 12/17/16 12/17/16 12/17/16 08:26 08:56 09:52 WBC RBC Hgb Hct MCV MCHC RDW Plt Count Lymph % (Auto) [place] % (Auto) [place] # Baso # Seg Neutrophils % Seg Neuts % (Manual) Lymphocytes % (Manual) Monocytes % (Manual) Nucleated RBC % Seg Neutrophils # Seg Neutrophils # Man Lymphocytes # (Manual) Monocytes # (Manual) Percent Retic Haptoglobin PT INR Fibrinogen D-Dimer POC ABG pH POC ABG pCO2 POC ABG pO2 Sodium Potassium Chloride Carbon Dioxide BUN Creatinine Glucose POC Glucose < 40 L 40 L 133 H Lactic Acid Calcium Phosphorus Magnesium Iron TIBC Transferrin Total Bilirubin Direct Bilirubin AST ALT Alkaline Phosphatase Lactate Dehydrogenase CK-MB (CK-2) Troponin T C-Reactive Protein Total Protein Albumin Triglycerides Cholesterol HDL Cholesterol Vitamin B12 Urine Creatinine Urine Total Protein Heparin-induced Plt Ab Hep Bs Antibody, Quant Crossmatch 12/17/16 12/17/16 12/17/16 12:51 16:08 21:00 WBC RBC Hgb Hct MCV MCHC RDW Plt Count Lymph % (Auto) [place] % (Auto) [place] # Baso # Seg Neutrophils % Seg Neuts % (Manual) Lymphocytes % (Manual) Monocytes % (Manual) Nucleated RBC % Seg Neutrophils # Seg Neutrophils # Man Lymphocytes # (Manual) Monocytes # (Manual) Percent Retic Haptoglobin PT INR Fibrinogen D-Dimer POC ABG pH POC ABG pCO2 POC ABG pO2 Sodium Potassium Chloride Carbon Dioxide BUN Creatinine Glucose POC Glucose 177 H 303 H 489 H Lactic Acid Calcium Phosphorus Magnesium Iron TIBC Transferrin Total Bilirubin Direct Bilirubin AST ALT Alkaline Phosphatase Lactate Dehydrogenase CK-MB (CK-2) Troponin T C-Reactive Protein Total Protein Albumin Triglycerides Cholesterol HDL Cholesterol Vitamin B12 Urine Creatinine Urine Total Protein Heparin-induced Plt Ab Hep Bs Antibody, Quant Crossmatch 12/17/16 12/17/16 12/18/16 Unknown Unknown 05:50 WBC 16.6 H 15.6 H RBC 2.63 L 2.58 L Hgb 7.5 L 7.3 L Hct 23.3 L 23.0 L MCV MCHC RDW 15.3 H 15.9 H Plt Count Lymph % (Auto) 7.7 L 8.7 L [place] % (Auto) [place] # 0.9 H Baso # Seg Neutrophils % 85.8 H 83.6 H Seg Neuts % (Manual) Lymphocytes % (Manual) Monocytes % (Manual) Nucleated RBC % Seg Neutrophils # 14.3 H 13.0 H Seg Neutrophils # Man Lymphocytes # (Manual) Monocytes # (Manual) Percent Retic Haptoglobin PT INR Fibrinogen D-Dimer POC ABG pH POC ABG pCO2 POC ABG pO2 Sodium Potassium 3.5 L Chloride Carbon Dioxide BUN 47 H Creatinine 5.2 H Glucose 173 H POC Glucose Lactic Acid Calcium 6.9 L Phosphorus Magnesium Iron TIBC Transferrin Total Bilirubin Direct Bilirubin AST ALT Alkaline Phosphatase Lactate Dehydrogenase CK-MB (CK-2) Troponin T C-Reactive Protein Total Protein Albumin Triglycerides Cholesterol HDL Cholesterol Vitamin B12 Urine Creatinine Urine Total Protein Heparin-induced Plt Ab Hep Bs Antibody, Quant Crossmatch 12/18/16 12/18/16 12/18/16 05:50 09:09 16:46 WBC RBC Hgb Hct MCV MCHC RDW Plt Count Lymph % (Auto) [place] % (Auto) [place] # Baso # Seg Neutrophils % Seg Neuts % (Manual) Lymphocytes % (Manual) Monocytes % (Manual) Nucleated RBC % Seg Neutrophils # Seg Neutrophils # Man Lymphocytes # (Manual) Monocytes # (Manual) Percent Retic Haptoglobin PT INR Fibrinogen D-Dimer POC ABG pH POC ABG pCO2 POC ABG pO2 Sodium Potassium Chloride Carbon Dioxide 17 L BUN 46 H Creatinine 5.0 H Glucose 252 H POC Glucose 349 H 324 H Lactic Acid Calcium 6.8 L Phosphorus Magnesium Iron TIBC Transferrin Total Bilirubin Direct Bilirubin AST ALT Alkaline Phosphatase Lactate Dehydrogenase CK-MB (CK-2) Troponin T C-Reactive Protein Total Protein Albumin Triglycerides Cholesterol HDL Cholesterol Vitamin B12 Urine Creatinine Urine Total Protein Heparin-induced Plt Ab Hep Bs Antibody, Quant Crossmatch 12/18/16 12/19/16 12/19/16 21:14 08:12 10:23 WBC 13.7 H RBC 2.60 L Hgb 7.5 L Hct 23.1 L MCV MCHC RDW 15.7 H Plt Count Lymph % (Auto) 9.1 L [place] % (Auto) [place] # 0.9 H Baso # Seg Neutrophils % 82.2 H Seg Neuts % (Manual) Lymphocytes % (Manual) Monocytes % (Manual) Nucleated RBC % Seg Neutrophils # 11.3 H Seg Neutrophils # Man Lymphocytes # (Manual) Monocytes # (Manual) Percent Retic Haptoglobin PT INR Fibrinogen D-Dimer POC ABG pH POC ABG pCO2 POC ABG pO2 Sodium Potassium Chloride Carbon Dioxide BUN Creatinine Glucose POC Glucose 316 H 464 H Lactic Acid Calcium Phosphorus Magnesium Iron TIBC Transferrin Total Bilirubin Direct Bilirubin AST ALT Alkaline Phosphatase Lactate Dehydrogenase CK-MB (CK-2) Troponin T C-Reactive Protein Total Protein Albumin Triglycerides Cholesterol HDL Cholesterol Vitamin B12 Urine Creatinine Urine Total Protein Heparin-induced Plt Ab Hep Bs Antibody, Quant Crossmatch 12/19/16 12/19/16 12/19/16 10:23 11:39 16:00 WBC RBC Hgb Hct MCV MCHC RDW Plt Count Lymph % (Auto) [place] % (Auto) [place] # Baso # Seg Neutrophils % Seg Neuts % (Manual) Lymphocytes % (Manual) Monocytes % (Manual) Nucleated RBC % Seg Neutrophils # Seg Neutrophils # Man Lymphocytes # (Manual) Monocytes # (Manual) Percent Retic Haptoglobin PT INR Fibrinogen D-Dimer POC ABG pH POC ABG pCO2 POC ABG pO2 Sodium Potassium 3.5 L Chloride Carbon Dioxide 14 L BUN 22 H Creatinine 3.2 H Glucose 446 H POC Glucose 344 H 467 H Lactic Acid Calcium 6.9 L Phosphorus 1.70 L D Magnesium Iron TIBC Transferrin Total Bilirubin Direct Bilirubin AST ALT Alkaline Phosphatase Lactate Dehydrogenase CK-MB (CK-2) Troponin T C-Reactive Protein Total Protein Albumin Triglycerides Cholesterol HDL Cholesterol Vitamin B12 Urine Creatinine Urine Total Protein Heparin-induced Plt Ab Hep Bs Antibody, Quant Crossmatch 12/19/16 12/19/16 12/19/16 16:35 16:35 21:16 WBC 19.3 H RBC 2.37 L Hgb 6.9 L Hct 21.8 L MCV MCHC RDW 16.7 H Plt Count Lymph % (Auto) [place] % (Auto) [place] # Baso # Seg Neutrophils % Seg Neuts % (Manual) Lymphocytes % (Manual) Monocytes % (Manual) Nucleated RBC % Seg Neutrophils # Seg Neutrophils # Man Lymphocytes # (Manual) Monocytes # (Manual) Percent Retic Haptoglobin PT INR Fibrinogen D-Dimer POC ABG pH POC ABG pCO2 POC ABG pO2 Sodium Potassium 3.4 L Chloride Carbon Dioxide 17 L BUN 23 H Creatinine 3.2 H Glucose 427 H POC Glucose 397 H Lactic Acid Calcium 6.9 L Phosphorus 2.40 L D Magnesium Iron TIBC Transferrin Total Bilirubin Direct Bilirubin AST ALT Alkaline Phosphatase Lactate Dehydrogenase CK-MB (CK-2) Troponin T C-Reactive Protein Total Protein Albumin Triglycerides Cholesterol HDL Cholesterol Vitamin B12 Urine Creatinine Urine Total Protein Heparin-induced Plt Ab Hep Bs Antibody, Quant Crossmatch 12/20/16 12/20/16 12/20/16 06:00 06:00 07:55 WBC 17.5 H RBC 2.54 L Hgb 7.3 L Hct 23.5 L MCV MCHC RDW 16.4 H Plt Count Lymph % (Auto) 9.0 L [place] % (Auto) [place] # 1.1 H Baso # Seg Neutrophils % 83.0 H Seg Neuts % (Manual) Lymphocytes % (Manual) Monocytes % (Manual) Nucleated RBC % Seg Neutrophils # 14.5 H Seg Neutrophils # Man Lymphocytes # (Manual) Monocytes # (Manual) Percent Retic Haptoglobin PT INR Fibrinogen D-Dimer POC ABG pH POC ABG pCO2 POC ABG pO2 Sodium 136 L Potassium Chloride 92.4 L Carbon Dioxide 15 L BUN Creatinine 2.6 H Glucose 475 H POC Glucose > 500 H Lactic Acid Calcium Phosphorus Magnesium Iron TIBC Transferrin Total Bilirubin Direct Bilirubin AST ALT Alkaline Phosphatase Lactate Dehydrogenase CK-MB (CK-2) Troponin T C-Reactive Protein Total Protein Albumin Triglycerides Cholesterol HDL Cholesterol Vitamin B12 Urine Creatinine Urine Total Protein Heparin-induced Plt Ab Hep Bs Antibody, Quant Crossmatch 12/20/16 12/20/16 12/20/16 11:21 16:01 22:33 WBC RBC Hgb Hct MCV MCHC RDW Plt Count Lymph % (Auto) [place] % (Auto) [place] # Baso # Seg Neutrophils % Seg Neuts % (Manual) Lymphocytes % (Manual) Monocytes % (Manual) Nucleated RBC % Seg Neutrophils # Seg Neutrophils # Man Lymphocytes # (Manual) Monocytes # (Manual) Percent Retic Haptoglobin PT INR Fibrinogen D-Dimer POC ABG pH POC ABG pCO2 POC ABG pO2 Sodium Potassium Chloride Carbon Dioxide BUN Creatinine Glucose POC Glucose > 500 H 446 H > 500 H Lactic Acid Calcium Phosphorus Magnesium Iron TIBC Transferrin Total Bilirubin Direct Bilirubin AST ALT Alkaline Phosphatase Lactate Dehydrogenase CK-MB (CK-2) Troponin T C-Reactive Protein Total Protein Albumin Triglycerides Cholesterol HDL Cholesterol Vitamin B12 Urine Creatinine Urine Total Protein Heparin-induced Plt Ab Hep Bs Antibody, Quant Crossmatch 12/20/16 12/20/16 12/21/16 22:37 23:00 00:48 WBC RBC Hgb Hct MCV MCHC RDW Plt Count Lymph % (Auto) [place] % (Auto) [place] # Baso # Seg Neutrophils % Seg Neuts % (Manual) Lymphocytes % (Manual) Monocytes % (Manual) Nucleated RBC % Seg Neutrophils # Seg Neutrophils # Man Lymphocytes # (Manual) Monocytes # (Manual) Percent Retic Haptoglobin PT INR Fibrinogen D-Dimer POC ABG pH POC ABG pCO2 POC ABG pO2 Sodium 128 L D Potassium Chloride 83.2 L Carbon Dioxide 11 L BUN 32 H Creatinine 3.5 H Glucose 822 H* POC Glucose > 500 H > 500 H Lactic Acid Calcium 8.2 L Phosphorus Magnesium Iron TIBC Transferrin Total Bilirubin Direct Bilirubin AST ALT Alkaline Phosphatase Lactate Dehydrogenase CK-MB (CK-2) Troponin T C-Reactive Protein Total Protein Albumin Triglycerides Cholesterol HDL Cholesterol Vitamin B12 Urine Creatinine Urine Total Protein Heparin-induced Plt Ab Hep Bs Antibody, Quant Crossmatch 12/21/16 12/21/16 12/21/16 03:17 05:00 05:00 WBC 15.7 H RBC 2.32 L Hgb 6.8 L Hct 20.6 L MCV MCHC RDW 16.3 H Plt Count Lymph % (Auto) 11.5 L [place] % (Auto) 7.4 H [place] # 1.2 H Baso # Seg Neutrophils % 78.7 H Seg Neuts % (Manual) Lymphocytes % (Manual) Monocytes % (Manual) Nucleated RBC % Seg Neutrophils # 12.4 H Seg Neutrophils # Man Lymphocytes # (Manual) Monocytes # (Manual) Percent Retic Haptoglobin PT INR Fibrinogen D-Dimer POC ABG pH POC ABG pCO2 POC ABG pO2 Sodium Potassium Chloride 95.3 L Carbon Dioxide 20 L D BUN 32 H Creatinine 3.7 H Glucose 243 H POC Glucose 428 H Lactic Acid Calcium 8.1 L Phosphorus Magnesium Iron TIBC 193.20 L Transferrin 138 L Total Bilirubin Direct Bilirubin AST ALT Alkaline Phosphatase Lactate Dehydrogenase CK-MB (CK-2) Troponin T C-Reactive Protein Total Protein Albumin Triglycerides Cholesterol HDL Cholesterol Vitamin B12 Urine Creatinine Urine Total Protein Heparin-induced Plt Ab Hep Bs Antibody, Quant Crossmatch 12/21/16 12/21/16 12/21/16 05:40 06:49 08:20 WBC RBC Hgb Hct MCV MCHC RDW Plt Count Lymph % (Auto) [place] % (Auto) [place] # Baso # Seg Neutrophils % Seg Neuts % (Manual) Lymphocytes % (Manual) Monocytes % (Manual) Nucleated RBC % Seg Neutrophils # Seg Neutrophils # Man Lymphocytes # (Manual) Monocytes # (Manual) Percent Retic Haptoglobin PT INR Fibrinogen D-Dimer POC ABG pH POC ABG pCO2 POC ABG pO2 Sodium Potassium Chloride Carbon Dioxide BUN Creatinine Glucose POC Glucose 271 H 236 H 222 H Lactic Acid Calcium Phosphorus Magnesium Iron TIBC Transferrin Total Bilirubin Direct Bilirubin AST ALT Alkaline Phosphatase Lactate Dehydrogenase CK-MB (CK-2) Troponin T C-Reactive Protein Total Protein Albumin Triglycerides Cholesterol HDL Cholesterol Vitamin B12 Urine Creatinine Urine Total Protein Heparin-induced Plt Ab Hep Bs Antibody, Quant Crossmatch 12/21/16 12/21/16 12/21/16 16:28 18:26 21:10 WBC RBC Hgb Hct MCV MCHC RDW Plt Count Lymph % (Auto) [place] % (Auto) [place] # Baso # Seg Neutrophils % Seg Neuts % (Manual) Lymphocytes % (Manual) Monocytes % (Manual) Nucleated RBC % Seg Neutrophils # Seg Neutrophils # Man Lymphocytes # (Manual) Monocytes # (Manual) Percent Retic Haptoglobin PT INR Fibrinogen D-Dimer POC ABG pH POC ABG pCO2 POC ABG pO2 Sodium Potassium Chloride Carbon Dioxide BUN Creatinine Glucose POC Glucose < 40 L 62 L 255 H Lactic Acid Calcium Phosphorus Magnesium Iron TIBC Transferrin Total Bilirubin Direct Bilirubin AST ALT Alkaline Phosphatase Lactate Dehydrogenase CK-MB (CK-2) Troponin T C-Reactive Protein Total Protein Albumin Triglycerides Cholesterol HDL Cholesterol Vitamin B12 Urine Creatinine Urine Total Protein Heparin-induced Plt Ab Hep Bs Antibody, Quant Crossmatch 12/22/16 12/22/16 12/22/16 03:38 06:45 06:45 WBC 17.4 H RBC 2.26 L Hgb 6.6 L Hct 20.5 L MCV MCHC RDW 15.7 H Plt Count Lymph % (Auto) 8.1 L [place] % (Auto) [place] # 0.9 H Baso # 0.2 H Seg Neutrophils % 84.3 H Seg Neuts % (Manual) Lymphocytes % (Manual) Monocytes % (Manual) Nucleated RBC % Seg Neutrophils # 14.6 H Seg Neutrophils # Man Lymphocytes # (Manual) Monocytes # (Manual) Percent Retic Haptoglobin PT INR Fibrinogen D-Dimer POC ABG pH POC ABG pCO2 POC ABG pO2 Sodium Potassium 3.3 L Chloride 95.5 L Carbon Dioxide 20 L BUN Creatinine 2.5 H Glucose 308 H POC Glucose 430 H Lactic Acid Calcium 8.2 L Phosphorus Magnesium Iron TIBC Transferrin Total Bilirubin Direct Bilirubin AST ALT Alkaline Phosphatase Lactate Dehydrogenase CK-MB (CK-2) Troponin T C-Reactive Protein Total Protein Albumin Triglycerides Cholesterol HDL Cholesterol Vitamin B12 Urine Creatinine Urine Total Protein Heparin-induced Plt Ab Hep Bs Antibody, Quant Crossmatch 12/22/16 12/22/16 12/22/16 08:31 12:50 15:46 WBC RBC Hgb Hct MCV MCHC RDW Plt Count Lymph % (Auto) [place] % (Auto) [place] # Baso # Seg Neutrophils % Seg Neuts % (Manual) Lymphocytes % (Manual) Monocytes % (Manual) Nucleated RBC % Seg Neutrophils # Seg Neutrophils # Man Lymphocytes # (Manual) Monocytes # (Manual) Percent Retic Haptoglobin PT INR Fibrinogen D-Dimer POC ABG pH POC ABG pCO2 POC ABG pO2 Sodium Potassium Chloride Carbon Dioxide BUN Creatinine Glucose POC Glucose 306 H 391 H Lactic Acid Calcium Phosphorus Magnesium Iron TIBC Transferrin Total Bilirubin Direct Bilirubin AST ALT Alkaline Phosphatase Lactate Dehydrogenase CK-MB (CK-2) Troponin T C-Reactive Protein Total Protein Albumin Triglycerides Cholesterol HDL Cholesterol Vitamin B12 Urine Creatinine Urine Total Protein Heparin-induced Plt Ab Hep Bs Antibody, Quant Crossmatch See Detail 12/22/16 12/22/16 12/23/16 17:13 21:45 06:42 WBC 17.9 H RBC 2.75 L Hgb 8.1 L Hct 24.8 L MCV MCHC RDW 17.1 H Plt Count Lymph % (Auto) [place] % (Auto) [place] # Baso # Seg Neutrophils % Seg Neuts % (Manual) Lymphocytes % (Manual) Monocytes % (Manual) Nucleated RBC % Seg Neutrophils # Seg Neutrophils # Man Lymphocytes # (Manual) Monocytes # (Manual) Percent Retic Haptoglobin PT INR Fibrinogen D-Dimer POC ABG pH POC ABG pCO2 POC ABG pO2 Sodium Potassium Chloride Carbon Dioxide BUN Creatinine Glucose POC Glucose > 500 H 449 H Lactic Acid Calcium Phosphorus Magnesium Iron TIBC Transferrin Total Bilirubin Direct Bilirubin AST ALT Alkaline Phosphatase Lactate Dehydrogenase CK-MB (CK-2) Troponin T C-Reactive Protein Total Protein Albumin Triglycerides Cholesterol HDL Cholesterol Vitamin B12 Urine Creatinine Urine Total Protein Heparin-induced Plt Ab Hep Bs Antibody, Quant Crossmatch 12/23/16 12/23/16 12/23/16 06:42 07:46 11:33 WBC RBC Hgb Hct MCV MCHC RDW Plt Count Lymph % (Auto) [place] % (Auto) [place] # Baso # Seg Neutrophils % Seg Neuts % (Manual) Lymphocytes % (Manual) Monocytes % (Manual) Nucleated RBC % Seg Neutrophils # Seg Neutrophils # Man Lymphocytes # (Manual) Monocytes # (Manual) Percent Retic Haptoglobin PT INR Fibrinogen D-Dimer POC ABG pH POC ABG pCO2 POC ABG pO2 Sodium Potassium 3.5 L Chloride 94.7 L Carbon Dioxide 19 L BUN 22 H Creatinine 2.9 H Glucose 401 H POC Glucose 449 H 298 H Lactic Acid Calcium 8.3 L Phosphorus Magnesium Iron TIBC Transferrin Total Bilirubin Direct Bilirubin AST ALT Alkaline Phosphatase Lactate Dehydrogenase CK-MB (CK-2) Troponin T C-Reactive Protein Total Protein Albumin Triglycerides Cholesterol HDL Cholesterol Vitamin B12 Urine Creatinine Urine Total Protein Heparin-induced Plt Ab Hep Bs Antibody, Quant Crossmatch 12/23/16 12/23/16 12/24/16 18:24 21:30 00:00 WBC RBC Hgb Hct MCV MCHC RDW Plt Count Lymph % (Auto) [place] % (Auto) [place] # Baso # Seg Neutrophils % Seg Neuts % (Manual) Lymphocytes % (Manual) Monocytes % (Manual) Nucleated RBC % Seg Neutrophils # Seg Neutrophils # Man Lymphocytes # (Manual) Monocytes # (Manual) Percent Retic Haptoglobin PT INR Fibrinogen D-Dimer POC ABG pH POC ABG pCO2 POC ABG pO2 Sodium Potassium Chloride Carbon Dioxide BUN Creatinine Glucose POC Glucose 177 H 455 H Lactic Acid Calcium Phosphorus Magnesium Iron TIBC Transferrin Total Bilirubin Direct Bilirubin AST ALT Alkaline Phosphatase Lactate Dehydrogenase CK-MB (CK-2) Troponin T C-Reactive Protein Total Protein Albumin Triglycerides Cholesterol HDL Cholesterol Vitamin B12 Urine Creatinine 239.9 H Urine Total Protein Heparin-induced Plt Ab Hep Bs Antibody, Quant Crossmatch 12/24/16 12/24/16 12/24/16 05:00 16:11 18:55 WBC RBC Hgb Hct MCV MCHC RDW Plt Count Lymph % (Auto) [place] % (Auto) [place] # Baso # Seg Neutrophils % Seg Neuts % (Manual) Lymphocytes % (Manual) Monocytes % (Manual) Nucleated RBC % Seg Neutrophils # Seg Neutrophils # Man Lymphocytes # (Manual) Monocytes # (Manual) Percent Retic Haptoglobin PT INR Fibrinogen D-Dimer POC ABG pH POC ABG pCO2 POC ABG pO2 Sodium Potassium 3.1 L Chloride 95.8 L Carbon Dioxide BUN Creatinine 1.8 H Glucose 106 H POC Glucose 175 H 148 H Lactic Acid Calcium Phosphorus Magnesium Iron TIBC Transferrin Total Bilirubin Direct Bilirubin AST ALT Alkaline Phosphatase Lactate Dehydrogenase CK-MB (CK-2) Troponin T C-Reactive Protein Total Protein Albumin Triglycerides Cholesterol HDL Cholesterol Vitamin B12 Urine Creatinine Urine Total Protein Heparin-induced Plt Ab Hep Bs Antibody, Quant Crossmatch 12/24/16 12/24/16 12/25/16 20:41 22:21 05:03 WBC RBC Hgb Hct MCV MCHC RDW Plt Count Lymph % (Auto) [place] % (Auto) [place] # Baso # Seg Neutrophils % Seg Neuts % (Manual) Lymphocytes % (Manual) Monocytes % (Manual) Nucleated RBC % Seg Neutrophils # Seg Neutrophils # Man Lymphocytes # (Manual) Monocytes # (Manual) Percent Retic Haptoglobin PT INR Fibrinogen D-Dimer POC ABG pH POC ABG pCO2 POC ABG pO2 Sodium Potassium 2.9 L* Chloride Carbon Dioxide BUN Creatinine 2.3 H Glucose 142 H POC Glucose 44 L 111 H Lactic Acid Calcium 8.0 L Phosphorus Magnesium Iron TIBC Transferrin Total Bilirubin Direct Bilirubin AST ALT Alkaline Phosphatase Lactate Dehydrogenase CK-MB (CK-2) Troponin T C-Reactive Protein Total Protein Albumin Triglycerides Cholesterol HDL Cholesterol Vitamin B12 Urine Creatinine Urine Total Protein Heparin-induced Plt Ab Hep Bs Antibody, Quant Crossmatch 12/25/16 12/25/16 12/25/16 07:30 12:08 16:43 WBC RBC Hgb Hct MCV MCHC RDW Plt Count Lymph % (Auto) [place] % (Auto) [place] # Baso # Seg Neutrophils % Seg Neuts % (Manual) Lymphocytes % (Manual) Monocytes % (Manual) Nucleated RBC % Seg Neutrophils # Seg Neutrophils # Man Lymphocytes # (Manual) Monocytes # (Manual) Percent Retic Haptoglobin PT INR Fibrinogen D-Dimer POC ABG pH POC ABG pCO2 POC ABG pO2 Sodium Potassium Chloride Carbon Dioxide BUN Creatinine Glucose POC Glucose 127 H 154 H 235 H Lactic Acid Calcium Phosphorus Magnesium Iron TIBC Transferrin Total Bilirubin Direct Bilirubin AST ALT Alkaline Phosphatase Lactate Dehydrogenase CK-MB (CK-2) Troponin T C-Reactive Protein Total Protein Albumin Triglycerides Cholesterol HDL Cholesterol Vitamin B12 Urine Creatinine Urine Total Protein Heparin-induced Plt Ab Hep Bs Antibody, Quant Crossmatch 12/25/16 12/26/16 12/26/16 23:30 07:49 10:21 WBC RBC Hgb Hct MCV MCHC RDW Plt Count Lymph % (Auto) [place] % (Auto) [place] # Baso # Seg Neutrophils % Seg Neuts % (Manual) Lymphocytes % (Manual) Monocytes % (Manual) Nucleated RBC % Seg Neutrophils # Seg Neutrophils # Man Lymphocytes # (Manual) Monocytes # (Manual) Percent Retic Haptoglobin PT INR Fibrinogen D-Dimer POC ABG pH POC ABG pCO2 POC ABG pO2 Sodium Potassium Chloride Carbon Dioxide BUN Creatinine Glucose POC Glucose 54 L 53 L 154 H Lactic Acid Calcium Phosphorus Magnesium Iron TIBC Transferrin Total Bilirubin Direct Bilirubin AST ALT Alkaline Phosphatase Lactate Dehydrogenase CK-MB (CK-2) Troponin T C-Reactive Protein Total Protein Albumin Triglycerides Cholesterol HDL Cholesterol Vitamin B12 Urine Creatinine Urine Total Protein Heparin-induced Plt Ab Hep Bs Antibody, Quant Crossmatch 07/22/17 07/22/17 07/22/17 12:19 16:14 Unknown WBC RBC Hgb Hct MCV MCHC RDW Plt Count Lymph % (Auto) [place] % (Auto) [place] # Baso # Seg Neutrophils % Seg Neuts % (Manual) Lymphocytes % (Manual) Monocytes % (Manual) Nucleated RBC % Seg Neutrophils # Seg Neutrophils # Man Lymphocytes # (Manual) Monocytes # (Manual) Percent Retic Haptoglobin PT INR Fibrinogen D-Dimer POC ABG pH POC ABG pCO2 POC ABG pO2 Sodium Potassium Chloride Carbon Dioxide BUN Creatinine 2.3 H Glucose POC Glucose 310 H Lactic Acid Calcium 8.3 L Phosphorus Magnesium 1.50 L Iron TIBC Transferrin Total Bilirubin Direct Bilirubin AST ALT Alkaline Phosphatase Lactate Dehydrogenase CK-MB (CK-2) Troponin T C-Reactive Protein Total Protein Albumin Triglycerides Cholesterol HDL Cholesterol Vitamin B12 Urine Creatinine Urine Total Protein Heparin-induced Plt Ab Hep Bs Antibody, Quant Crossmatch 12/26/16 12/26/16 12/27/16 Unknown Unknown 04:47 WBC RBC 2.95 L Hgb 9.0 L Hct 26.5 L MCV MCHC RDW 16.6 H Plt Count Lymph % (Auto) [place] % (Auto) [place] # Baso # Seg Neutrophils % Seg Neuts % (Manual) Lymphocytes % (Manual) Monocytes % (Manual) Nucleated RBC % Seg Neutrophils # Seg Neutrophils # Man Lymphocytes # (Manual) Monocytes # (Manual) Percent Retic Haptoglobin PT INR Fibrinogen D-Dimer POC ABG pH POC ABG pCO2 POC ABG pO2 Sodium Potassium Chloride Carbon Dioxide BUN Creatinine 2.3 H Glucose 157 H POC Glucose 406 H Lactic Acid Calcium 7.7 L Phosphorus Magnesium Iron TIBC Transferrin Total Bilirubin Direct Bilirubin AST ALT Alkaline Phosphatase Lactate Dehydrogenase CK-MB (CK-2) Troponin T C-Reactive Protein Total Protein Albumin Triglycerides Cholesterol HDL Cholesterol Vitamin B12 Urine Creatinine Urine Total Protein Heparin-induced Plt Ab Hep Bs Antibody, Quant Crossmatch 12/27/16 12/27/16 12/27/16 07:54 11:09 15:40 WBC RBC Hgb Hct MCV MCHC RDW Plt Count Lymph % (Auto) [place] % (Auto) [place] # Baso # Seg Neutrophils % Seg Neuts % (Manual) Lymphocytes % (Manual) Monocytes % (Manual) Nucleated RBC % Seg Neutrophils # Seg Neutrophils # Man Lymphocytes # (Manual) Monocytes # (Manual) Percent Retic Haptoglobin PT INR Fibrinogen D-Dimer POC ABG pH POC ABG pCO2 POC ABG pO2 Sodium Potassium Chloride Carbon Dioxide BUN Creatinine Glucose POC Glucose 500 H 301 H 208 H Lactic Acid Calcium Phosphorus Magnesium Iron TIBC Transferrin Total Bilirubin Direct Bilirubin AST ALT Alkaline Phosphatase Lactate Dehydrogenase CK-MB (CK-2) Troponin T C-Reactive Protein Total Protein Albumin Triglycerides Cholesterol HDL Cholesterol Vitamin B12 Urine Creatinine Urine Total Protein Heparin-induced Plt Ab Hep Bs Antibody, Quant Crossmatch 12/27/16 12/28/16 12/28/16 21:00 06:17 07:30 WBC RBC Hgb Hct MCV MCHC RDW Plt Count Lymph % (Auto) [place] % (Auto) [place] # Baso # Seg Neutrophils % Seg Neuts % (Manual) Lymphocytes % (Manual) Monocytes % (Manual) Nucleated RBC % Seg Neutrophils # Seg Neutrophils # Man Lymphocytes # (Manual) Monocytes # (Manual) Percent Retic Haptoglobin PT INR Fibrinogen D-Dimer POC ABG pH POC ABG pCO2 POC ABG pO2 Sodium Potassium 5.1 H D Chloride Carbon Dioxide 19 L BUN 24 H Creatinine 2.0 H Glucose 394 H POC Glucose 347 H 409 H Lactic Acid Calcium 7.7 L Phosphorus Magnesium Iron TIBC Transferrin Total Bilirubin Direct Bilirubin AST ALT Alkaline Phosphatase Lactate Dehydrogenase CK-MB (CK-2) Troponin T C-Reactive Protein Total Protein Albumin Triglycerides Cholesterol HDL Cholesterol Vitamin B12 Urine Creatinine Urine Total Protein Heparin-induced Plt Ab Hep Bs Antibody, Quant Crossmatch 12/28/16 12/28/16 12/28/16 11:33 16:38 20:59 WBC RBC Hgb Hct MCV MCHC RDW Plt Count Lymph % (Auto) [place] % (Auto) [place] # Baso # Seg Neutrophils % Seg Neuts % (Manual) Lymphocytes % (Manual) Monocytes % (Manual) Nucleated RBC % Seg Neutrophils # Seg Neutrophils # Man Lymphocytes # (Manual) Monocytes # (Manual) Percent Retic Haptoglobin PT INR Fibrinogen D-Dimer POC ABG pH POC ABG pCO2 POC ABG pO2 Sodium Potassium Chloride Carbon Dioxide BUN Creatinine Glucose POC Glucose 260 H 240 H 45 L Lactic Acid Calcium Phosphorus Magnesium Iron TIBC Transferrin Total Bilirubin Direct Bilirubin AST ALT Alkaline Phosphatase Lactate Dehydrogenase CK-MB (CK-2) Troponin T C-Reactive Protein Total Protein Albumin Triglycerides Cholesterol HDL Cholesterol Vitamin B12 Urine Creatinine Urine Total Protein Heparin-induced Plt Ab Hep Bs Antibody, Quant Crossmatch 12/28/16 12/29/16 12/29/16 22:14 04:45 05:52 WBC RBC Hgb Hct MCV MCHC RDW Plt Count Lymph % (Auto) [place] % (Auto) [place] # Baso # Seg Neutrophils % Seg Neuts % (Manual) Lymphocytes % (Manual) Monocytes % (Manual) Nucleated RBC % Seg Neutrophils # Seg Neutrophils # Man Lymphocytes # (Manual) Monocytes # (Manual) Percent Retic Haptoglobin PT INR Fibrinogen D-Dimer POC ABG pH POC ABG pCO2 POC ABG pO2 Sodium Potassium Chloride Carbon Dioxide BUN 23 H Creatinine 2.0 H Glucose 166 H POC Glucose 56 L 43 L Lactic Acid Calcium 7.7 L Phosphorus Magnesium Iron TIBC Transferrin Total Bilirubin Direct Bilirubin AST ALT Alkaline Phosphatase Lactate Dehydrogenase CK-MB (CK-2) Troponin T C-Reactive Protein Total Protein Albumin Triglycerides Cholesterol HDL Cholesterol Vitamin B12 Urine Creatinine Urine Total Protein Heparin-induced Plt Ab Hep Bs Antibody, Quant Crossmatch 12/29/16 12/29/16 12/30/16 06:52 11:52 05:00 WBC RBC Hgb Hct MCV MCHC RDW Plt Count Lymph % (Auto) [place] % (Auto) [place] # Baso # Seg Neutrophils % Seg Neuts % (Manual) Lymphocytes % (Manual) Monocytes % (Manual) Nucleated RBC % Seg Neutrophils # Seg Neutrophils # Man Lymphocytes # (Manual) Monocytes # (Manual) Percent Retic Haptoglobin PT INR Fibrinogen D-Dimer POC ABG pH POC ABG pCO2 POC ABG pO2 Sodium Potassium Chloride Carbon Dioxide BUN 20 H Creatinine 2.0 H Glucose 150 H POC Glucose 115 H 143 H Lactic Acid Calcium 7.6 L Phosphorus Magnesium Iron TIBC Transferrin Total Bilirubin Direct Bilirubin AST ALT Alkaline Phosphatase Lactate Dehydrogenase CK-MB (CK-2) Troponin T C-Reactive Protein Total Protein Albumin Triglycerides Cholesterol HDL Cholesterol Vitamin B12 Urine Creatinine Urine Total Protein Heparin-induced Plt Ab Hep Bs Antibody, Quant Crossmatch 12/30/16 12/30/16 12/30/16 07:11 11:36 15:17 WBC RBC Hgb Hct MCV MCHC RDW Plt Count Lymph % (Auto) [place] % (Auto) [place] # Baso # Seg Neutrophils % Seg Neuts % (Manual) Lymphocytes % (Manual) Monocytes % (Manual) Nucleated RBC % Seg Neutrophils # Seg Neutrophils # Man Lymphocytes # (Manual) Monocytes # (Manual) Percent Retic Haptoglobin PT INR Fibrinogen D-Dimer POC ABG pH POC ABG pCO2 POC ABG pO2 Sodium Potassium Chloride Carbon Dioxide BUN Creatinine Glucose POC Glucose 162 H 137 H 123 H Lactic Acid Calcium Phosphorus Magnesium Iron TIBC Transferrin Total Bilirubin Direct Bilirubin AST ALT Alkaline Phosphatase Lactate Dehydrogenase CK-MB (CK-2) Troponin T C-Reactive Protein Total Protein Albumin Triglycerides Cholesterol HDL Cholesterol Vitamin B12 Urine Creatinine Urine Total Protein Heparin-induced Plt Ab Hep Bs Antibody, Quant Crossmatch 12/30/16 12/30/16 12/30/16 21:11 22:13 23:35 WBC RBC Hgb Hct MCV MCHC RDW Plt Count Lymph % (Auto) [place] % (Auto) [place] # Baso # Seg Neutrophils % Seg Neuts % (Manual) Lymphocytes % (Manual) Monocytes % (Manual) Nucleated RBC % Seg Neutrophils # Seg Neutrophils # Man Lymphocytes # (Manual) Monocytes # (Manual) Percent Retic Haptoglobin PT INR Fibrinogen D-Dimer POC ABG pH POC ABG pCO2 POC ABG pO2 Sodium Potassium Chloride Carbon Dioxide BUN Creatinine Glucose POC Glucose < 40 L 40 L 126 H Lactic Acid Calcium Phosphorus Magnesium Iron TIBC Transferrin Total Bilirubin Direct Bilirubin AST ALT Alkaline Phosphatase Lactate Dehydrogenase CK-MB (CK-2) Troponin T C-Reactive Protein Total Protein Albumin Triglycerides Cholesterol HDL Cholesterol Vitamin B12 Urine Creatinine Urine Total Protein Heparin-induced Plt Ab Hep Bs Antibody, Quant Crossmatch 12/31/16 12/31/16 12/31/16 06:38 07:51 08:28 WBC RBC Hgb Hct MCV MCHC RDW Plt Count Lymph % (Auto) [place] % (Auto) [place] # Baso # Seg Neutrophils % Seg Neuts % (Manual) Lymphocytes % (Manual) Monocytes % (Manual) Nucleated RBC % Seg Neutrophils # Seg Neutrophils # Man Lymphocytes # (Manual) Monocytes # (Manual) Percent Retic Haptoglobin PT INR Fibrinogen D-Dimer POC ABG pH POC ABG pCO2 POC ABG pO2 Sodium Potassium Chloride Carbon Dioxide BUN 20 H Creatinine 1.6 H Glucose 28 L* POC Glucose 44 L 155 H Lactic Acid Calcium 7.4 L Phosphorus Magnesium Iron TIBC Transferrin Total Bilirubin Direct Bilirubin AST ALT Alkaline Phosphatase Lactate Dehydrogenase CK-MB (CK-2) Troponin T C-Reactive Protein Total Protein Albumin Triglycerides Cholesterol HDL Cholesterol Vitamin B12 Urine Creatinine Urine Total Protein Heparin-induced Plt Ab Hep Bs Antibody, Quant Crossmatch 12/31/16 12/31/16 12/31/16 11:27 12:59 16:10 WBC RBC Hgb Hct MCV MCHC RDW Plt Count Lymph % (Auto) [place] % (Auto) [place] # Baso # Seg Neutrophils % Seg Neuts % (Manual) Lymphocytes % (Manual) Monocytes % (Manual) Nucleated RBC % Seg Neutrophils # Seg Neutrophils # Man Lymphocytes # (Manual) Monocytes # (Manual) Percent Retic Haptoglobin PT INR Fibrinogen D-Dimer POC ABG pH POC ABG pCO2 POC ABG pO2 Sodium Potassium Chloride Carbon Dioxide BUN Creatinine Glucose POC Glucose 113 H 113 H 216 H Lactic Acid Calcium Phosphorus Magnesium Iron TIBC Transferrin Total Bilirubin Direct Bilirubin AST ALT Alkaline Phosphatase Lactate Dehydrogenase CK-MB (CK-2) Troponin T C-Reactive Protein Total Protein Albumin Triglycerides Cholesterol HDL Cholesterol Vitamin B12 Urine Creatinine Urine Total Protein Heparin-induced Plt Ab Hep Bs Antibody, Quant Crossmatch 12/31/16 01/01/17 01/01/17 21:22 01:11 01:46 WBC RBC Hgb Hct MCV MCHC RDW Plt Count Lymph % (Auto) [place] % (Auto) [place] # Baso # Seg Neutrophils % Seg Neuts % (Manual) Lymphocytes % (Manual) Monocytes % (Manual) Nucleated RBC % Seg Neutrophils # Seg Neutrophils # Man Lymphocytes # (Manual) Monocytes # (Manual) Percent Retic Haptoglobin PT INR Fibrinogen D-Dimer POC ABG pH POC ABG pCO2 POC ABG pO2 Sodium Potassium Chloride Carbon Dioxide BUN Creatinine Glucose POC Glucose 410 H 129 H Lactic Acid Calcium Phosphorus Magnesium 1.40 L Iron TIBC Transferrin Total Bilirubin Direct Bilirubin AST ALT Alkaline Phosphatase Lactate Dehydrogenase CK-MB (CK-2) Troponin T C-Reactive Protein Total Protein Albumin Triglycerides Cholesterol HDL Cholesterol Vitamin B12 Urine Creatinine Urine Total Protein Heparin-induced Plt Ab Hep Bs Antibody, Quant Crossmatch 01/01/17 01/01/17 01/01/17 05:00 08:07 11:56 WBC RBC Hgb Hct MCV MCHC RDW Plt Count Lymph % (Auto) [place] % (Auto) [place] # Baso # Seg Neutrophils % Seg Neuts % (Manual) Lymphocytes % (Manual) Monocytes % (Manual) Nucleated RBC % Seg Neutrophils # Seg Neutrophils # Man Lymphocytes # (Manual) Monocytes # (Manual) Percent Retic Haptoglobin PT INR Fibrinogen D-Dimer POC ABG pH POC ABG pCO2 POC ABG pO2 Sodium Potassium 5.2 H D Chloride Carbon Dioxide BUN 22 H Creatinine 1.6 H Glucose 167 H POC Glucose 431 H 216 H Lactic Acid Calcium 7.8 L Phosphorus Magnesium Iron TIBC Transferrin Total Bilirubin Direct Bilirubin AST ALT Alkaline Phosphatase Lactate Dehydrogenase CK-MB (CK-2) Troponin T C-Reactive Protein Total Protein Albumin Triglycerides Cholesterol HDL Cholesterol Vitamin B12 Urine Creatinine Urine Total Protein Heparin-induced Plt Ab Hep Bs Antibody, Quant Crossmatch 01/01/17 01/01/17 01/02/17 16:02 20:53 05:10 WBC RBC Hgb Hct MCV MCHC RDW Plt Count Lymph % (Auto) [place] % (Auto) [place] # Baso # Seg Neutrophils % Seg Neuts % (Manual) Lymphocytes % (Manual) Monocytes % (Manual) Nucleated RBC % Seg Neutrophils # Seg Neutrophils # Man Lymphocytes # (Manual) Monocytes # (Manual) Percent Retic Haptoglobin PT INR Fibrinogen D-Dimer POC ABG pH POC ABG pCO2 POC ABG pO2 Sodium Potassium Chloride Carbon Dioxide BUN 21 H Creatinine 1.5 H Glucose 313 H POC Glucose 491 H 114 H Lactic Acid Calcium 8.3 L Phosphorus Magnesium Iron TIBC Transferrin Total Bilirubin Direct Bilirubin AST ALT Alkaline Phosphatase Lactate Dehydrogenase CK-MB (CK-2) Troponin T C-Reactive Protein Total Protein Albumin Triglycerides Cholesterol HDL Cholesterol Vitamin B12 Urine Creatinine Urine Total Protein Heparin-induced Plt Ab Hep Bs Antibody, Quant Crossmatch 01/02/17 01/02/17 01/02/17 05:10 06:03 09:04 WBC 12.7 H RBC 2.77 L Hgb 8.0 L Hct 25.5 L MCV MCHC RDW 16.6 H Plt Count Lymph % (Auto) [place] % (Auto) [place] # Baso # Seg Neutrophils % Seg Neuts % (Manual) Lymphocytes % (Manual) Monocytes % (Manual) Nucleated RBC % Seg Neutrophils # Seg Neutrophils # Man Lymphocytes # (Manual) Monocytes # (Manual) Percent Retic Haptoglobin PT INR Fibrinogen D-Dimer POC ABG pH POC ABG pCO2 POC ABG pO2 Sodium Potassium Chloride Carbon Dioxide BUN Creatinine Glucose POC Glucose 304 H 52 L Lactic Acid Calcium Phosphorus Magnesium Iron TIBC Transferrin Total Bilirubin Direct Bilirubin AST ALT Alkaline Phosphatase Lactate Dehydrogenase CK-MB (CK-2) Troponin T C-Reactive Protein Total Protein Albumin Triglycerides Cholesterol HDL Cholesterol Vitamin B12 Urine Creatinine Urine Total Protein Heparin-induced Plt Ab Hep Bs Antibody, Quant Crossmatch 01/02/17 01/02/17 01/02/17 12:06 16:35 22:55 WBC RBC Hgb Hct MCV MCHC RDW Plt Count Lymph % (Auto) [place] % (Auto) [place] # Baso # Seg Neutrophils % Seg Neuts % (Manual) Lymphocytes % (Manual) Monocytes % (Manual) Nucleated RBC % Seg Neutrophils # Seg Neutrophils # Man Lymphocytes # (Manual) Monocytes # (Manual) Percent Retic Haptoglobin PT INR Fibrinogen D-Dimer POC ABG pH POC ABG pCO2 POC ABG pO2 Sodium Potassium Chloride Carbon Dioxide BUN Creatinine Glucose POC Glucose 157 H 286 H 324 H Lactic Acid Calcium Phosphorus Magnesium Iron TIBC Transferrin Total Bilirubin Direct Bilirubin AST ALT Alkaline Phosphatase Lactate Dehydrogenase CK-MB (CK-2) Troponin T C-Reactive Protein Total Protein Albumin Triglycerides Cholesterol HDL Cholesterol Vitamin B12 Urine Creatinine Urine Total Protein Heparin-induced Plt Ab Hep Bs Antibody, Quant Crossmatch 01/03/17 01/03/17 01/03/17 07:20 07:20 08:45 WBC RBC 2.39 L Hgb 6.8 L Hct 21.5 L MCV MCHC RDW 16.7 H Plt Count Lymph % (Auto) [place] % (Auto) [place] # Baso # Seg Neutrophils % Seg Neuts % (Manual) Lymphocytes % (Manual) Monocytes % (Manual) Nucleated RBC % Seg Neutrophils # Seg Neutrophils # Man Lymphocytes # (Manual) Monocytes # (Manual) Percent Retic Haptoglobin PT INR Fibrinogen D-Dimer POC ABG pH POC ABG pCO2 POC ABG pO2 Sodium Potassium Chloride 110.5 H Carbon Dioxide BUN Creatinine 1.5 H Glucose 327 H POC Glucose 428 H Lactic Acid Calcium 7.3 L Phosphorus Magnesium Iron TIBC Transferrin Total Bilirubin Direct Bilirubin AST ALT Alkaline Phosphatase Lactate Dehydrogenase CK-MB (CK-2) Troponin T C-Reactive Protein Total Protein Albumin Triglycerides Cholesterol HDL Cholesterol Vitamin B12 Urine Creatinine Urine Total Protein Heparin-induced Plt Ab Hep Bs Antibody, Quant Crossmatch 01/03/17 01/03/17 01/03/17 11:18 12:30 16:08 WBC RBC Hgb Hct MCV MCHC RDW Plt Count Lymph % (Auto) [place] % (Auto) [place] # Baso # Seg Neutrophils % Seg Neuts % (Manual) Lymphocytes % (Manual) Monocytes % (Manual) Nucleated RBC % Seg Neutrophils # Seg Neutrophils # Man Lymphocytes # (Manual) Monocytes # (Manual) Percent Retic Haptoglobin PT INR Fibrinogen D-Dimer POC ABG pH POC ABG pCO2 POC ABG pO2 Sodium Potassium Chloride Carbon Dioxide BUN Creatinine Glucose POC Glucose 195 H 141 H Lactic Acid Calcium Phosphorus Magnesium Iron TIBC Transferrin Total Bilirubin Direct Bilirubin AST ALT Alkaline Phosphatase Lactate Dehydrogenase CK-MB (CK-2) Troponin T C-Reactive Protein Total Protein Albumin Triglycerides Cholesterol HDL Cholesterol Vitamin B12 Urine Creatinine Urine Total Protein Heparin-induced Plt Ab Hep Bs Antibody, Quant Crossmatch See Detail 01/03/17 01/04/17 01/04/17 21:29 06:57 06:57 WBC RBC 2.69 L Hgb 7.8 L Hct 24.0 L MCV MCHC RDW 16.0 H Plt Count Lymph % (Auto) [place] % (Auto) [place] # Baso # Seg Neutrophils % Seg Neuts % (Manual) Lymphocytes % (Manual) Monocytes % (Manual) Nucleated RBC % Seg Neutrophils # Seg Neutrophils # Man Lymphocytes # (Manual) Monocytes # (Manual) Percent Retic Haptoglobin PT INR Fibrinogen D-Dimer POC ABG pH POC ABG pCO2 POC ABG pO2 Sodium Potassium Chloride Carbon Dioxide BUN Creatinine 1.4 H Glucose 59 L POC Glucose 55 L Lactic Acid Calcium 7.5 L Phosphorus Magnesium Iron TIBC Transferrin Total Bilirubin Direct Bilirubin AST ALT Alkaline Phosphatase Lactate Dehydrogenase CK-MB (CK-2) Troponin T C-Reactive Protein Total Protein Albumin Triglycerides Cholesterol HDL Cholesterol Vitamin B12 Urine Creatinine Urine Total Protein Heparin-induced Plt Ab Hep Bs Antibody, Quant Crossmatch 01/04/17 01/04/17 01/04/17 06:57 08:01 12:10 WBC RBC Hgb Hct MCV MCHC RDW Plt Count Lymph % (Auto) [place] % (Auto) [place] # Baso # Seg Neutrophils % Seg Neuts % (Manual) Lymphocytes % (Manual) Monocytes % (Manual) Nucleated RBC % Seg Neutrophils # Seg Neutrophils # Man Lymphocytes # (Manual) Monocytes # (Manual) Percent Retic Haptoglobin PT INR Fibrinogen D-Dimer POC ABG pH POC ABG pCO2 POC ABG pO2 Sodium Potassium Chloride Carbon Dioxide BUN Creatinine Glucose POC Glucose 112 H 244 H Lactic Acid Calcium Phosphorus Magnesium Iron TIBC Transferrin Total Bilirubin Direct Bilirubin AST ALT 6 L Alkaline Phosphatase 161 H Lactate Dehydrogenase CK-MB (CK-2) Troponin T C-Reactive Protein Total Protein 5.6 L Albumin 2.7 L Triglycerides Cholesterol HDL Cholesterol Vitamin B12 Urine Creatinine Urine Total Protein Heparin-induced Plt Ab Hep Bs Antibody, Quant Crossmatch 01/04/17 01/04/17 01/05/17 17:12 21:47 01:01 WBC RBC Hgb Hct MCV MCHC RDW Plt Count Lymph % (Auto) [place] % (Auto) [place] # Baso # Seg Neutrophils % Seg Neuts % (Manual) Lymphocytes % (Manual) Monocytes % (Manual) Nucleated RBC % Seg Neutrophils # Seg Neutrophils # Man Lymphocytes # (Manual) Monocytes # (Manual) Percent Retic Haptoglobin PT INR Fibrinogen D-Dimer POC ABG pH POC ABG pCO2 POC ABG pO2 Sodium Potassium Chloride Carbon Dioxide BUN Creatinine Glucose POC Glucose 388 H 359 H 476 H Lactic Acid Calcium Phosphorus Magnesium Iron TIBC Transferrin Total Bilirubin Direct Bilirubin AST ALT Alkaline Phosphatase Lactate Dehydrogenase CK-MB (CK-2) Troponin T C-Reactive Protein Total Protein Albumin Triglycerides Cholesterol HDL Cholesterol Vitamin B12 Urine Creatinine Urine Total Protein Heparin-induced Plt Ab Hep Bs Antibody, Quant Crossmatch 01/05/17 01/05/17 01/05/17 05:00 05:00 05:22 WBC RBC 3.10 L Hgb 9.1 L Hct 27.9 L MCV MCHC RDW 16.4 H Plt Count Lymph % (Auto) [place] % (Auto) [place] # Baso # Seg Neutrophils % Seg Neuts % (Manual) Lymphocytes % (Manual) Monocytes % (Manual) Nucleated RBC % Seg Neutrophils # Seg Neutrophils # Man Lymphocytes # (Manual) Monocytes # (Manual) Percent Retic Haptoglobin PT INR Fibrinogen D-Dimer POC ABG pH POC ABG pCO2 POC ABG pO2 Sodium 130 L D Potassium 5.8 H D Chloride 93.3 L Carbon Dioxide 18 L BUN 24 H Creatinine 1.7 H Glucose POC Glucose > 500 H Lactic Acid Calcium 7.5 L Phosphorus Magnesium Iron TIBC Transferrin Total Bilirubin Direct Bilirubin AST ALT Alkaline Phosphatase Lactate Dehydrogenase CK-MB (CK-2) Troponin T C-Reactive Protein Total Protein Albumin Triglycerides Cholesterol HDL Cholesterol Vitamin B12 Urine Creatinine Urine Total Protein Heparin-induced Plt Ab Hep Bs Antibody, Quant Crossmatch 01/05/17 01/05/17 01/05/17 06:40 07:36 09:43 WBC RBC Hgb Hct MCV MCHC RDW Plt Count Lymph % (Auto) [place] % (Auto) [place] # Baso # Seg Neutrophils % Seg Neuts % (Manual) Lymphocytes % (Manual) Monocytes % (Manual) Nucleated RBC % Seg Neutrophils # Seg Neutrophils # Man Lymphocytes # (Manual) Monocytes # (Manual) Percent Retic Haptoglobin PT INR Fibrinogen D-Dimer POC ABG pH POC ABG pCO2 POC ABG pO2 Sodium Potassium Chloride Carbon Dioxide BUN Creatinine Glucose 831 H* POC Glucose > 500 H 403 H Lactic Acid Calcium Phosphorus Magnesium Iron TIBC Transferrin Total Bilirubin Direct Bilirubin AST ALT Alkaline Phosphatase Lactate Dehydrogenase CK-MB (CK-2) Troponin T C-Reactive Protein Total Protein Albumin Triglycerides Cholesterol HDL Cholesterol Vitamin B12 Urine Creatinine Urine Total Protein Heparin-induced Plt Ab Hep Bs Antibody, Quant Crossmatch 01/05/17 01/05/17 01/05/17 11:19 16:04 21:14 WBC RBC Hgb Hct MCV MCHC RDW Plt Count Lymph % (Auto) [place] % (Auto) [place] # Baso # Seg Neutrophils % Seg Neuts % (Manual) Lymphocytes % (Manual) Monocytes % (Manual) Nucleated RBC % Seg Neutrophils # Seg Neutrophils # Man Lymphocytes # (Manual) Monocytes # (Manual) Percent Retic Haptoglobin PT INR Fibrinogen D-Dimer POC ABG pH POC ABG pCO2 POC ABG pO2 Sodium Potassium Chloride Carbon Dioxide BUN Creatinine Glucose POC Glucose 293 H 408 H 401 H Lactic Acid Calcium Phosphorus Magnesium Iron TIBC Transferrin Total Bilirubin Direct Bilirubin AST ALT Alkaline Phosphatase Lactate Dehydrogenase CK-MB (CK-2) Troponin T C-Reactive Protein Total Protein Albumin Triglycerides Cholesterol HDL Cholesterol Vitamin B12 Urine Creatinine Urine Total Protein Heparin-induced Plt Ab Hep Bs Antibody, Quant Crossmatch 01/05/17 01/06/17 01/06/17 Unknown 05:58 07:51 WBC RBC Hgb Hct MCV MCHC RDW Plt Count Lymph % (Auto) [place] % (Auto) [place] # Baso # Seg Neutrophils % Seg Neuts % (Manual) Lymphocytes % (Manual) Monocytes % (Manual) Nucleated RBC % Seg Neutrophils # Seg Neutrophils # Man Lymphocytes # (Manual) Monocytes # (Manual) Percent Retic Haptoglobin PT INR Fibrinogen D-Dimer POC ABG pH POC ABG pCO2 POC ABG pO2 Sodium 134 L Potassium Chloride Carbon Dioxide 18 L BUN 30 H Creatinine 1.8 H Glucose 329 H POC Glucose > 500 H 472 H Lactic Acid Calcium 7.4 L Phosphorus Magnesium Iron TIBC Transferrin Total Bilirubin Direct Bilirubin AST ALT Alkaline Phosphatase Lactate Dehydrogenase CK-MB (CK-2) Troponin T C-Reactive Protein Total Protein Albumin Triglycerides Cholesterol HDL Cholesterol Vitamin B12 Urine Creatinine Urine Total Protein Heparin-induced Plt Ab Hep Bs Antibody, Quant Crossmatch 01/06/17 01/06/17 01/06/17 12:03 16:39 22:38 WBC RBC Hgb Hct MCV MCHC RDW Plt Count Lymph % (Auto) [place] % (Auto) [place] # Baso # Seg Neutrophils % Seg Neuts % (Manual) Lymphocytes % (Manual) Monocytes % (Manual) Nucleated RBC % Seg Neutrophils # Seg Neutrophils # Man Lymphocytes # (Manual) Monocytes # (Manual) Percent Retic Haptoglobin PT INR Fibrinogen D-Dimer POC ABG pH POC ABG pCO2 POC ABG pO2 Sodium Potassium Chloride Carbon Dioxide BUN Creatinine Glucose POC Glucose 258 H 331 H 246 H Lactic Acid Calcium Phosphorus Magnesium Iron TIBC Transferrin Total Bilirubin Direct Bilirubin AST ALT Alkaline Phosphatase Lactate Dehydrogenase CK-MB (CK-2) Troponin T C-Reactive Protein Total Protein Albumin Triglycerides Cholesterol HDL Cholesterol Vitamin B12 Urine Creatinine Urine Total Protein Heparin-induced Plt Ab Hep Bs Antibody, Quant Crossmatch 01/07/17 01/07/17 01/07/17 06:17 06:17 06:21 WBC 14.1 H RBC 2.54 L Hgb 7.4 L Hct 23.0 L MCV MCHC RDW 16.6 H Plt Count Lymph % (Auto) [place] % (Auto) [place] # Baso # Seg Neutrophils % Seg Neuts % (Manual) Lymphocytes % (Manual) Monocytes % (Manual) Nucleated RBC % Seg Neutrophils # Seg Neutrophils # Man Lymphocytes # (Manual) Monocytes # (Manual) Percent Retic Haptoglobin PT INR Fibrinogen D-Dimer POC ABG pH POC ABG pCO2 POC ABG pO2 Sodium 136 L Potassium Chloride Carbon Dioxide 20 L BUN 40 H Creatinine 1.3 H Glucose 376 H POC Glucose 378 H Lactic Acid Calcium 7.7 L Phosphorus Magnesium Iron TIBC Transferrin Total Bilirubin Direct Bilirubin AST ALT Alkaline Phosphatase Lactate Dehydrogenase CK-MB (CK-2) Troponin T C-Reactive Protein Total Protein Albumin Triglycerides Cholesterol HDL Cholesterol Vitamin B12 Urine Creatinine Urine Total Protein Heparin-induced Plt Ab Hep Bs Antibody, Quant Crossmatch 01/07/17 01/07/17 01/07/17 11:13 11:38 14:00 WBC RBC Hgb Hct MCV MCHC RDW Plt Count Lymph % (Auto) [place] % (Auto) [place] # Baso # Seg Neutrophils % Seg Neuts % (Manual) Lymphocytes % (Manual) Monocytes % (Manual) Nucleated RBC % Seg Neutrophils # Seg Neutrophils # Man Lymphocytes # (Manual) Monocytes # (Manual) Percent Retic Haptoglobin PT INR Fibrinogen D-Dimer POC ABG pH POC ABG pCO2 POC ABG pO2 Sodium Potassium Chloride Carbon Dioxide BUN Creatinine Glucose POC Glucose 406 H Lactic Acid 7.00 H* 4.20 H* Calcium Phosphorus Magnesium Iron TIBC Transferrin Total Bilirubin Direct Bilirubin AST ALT Alkaline Phosphatase Lactate Dehydrogenase CK-MB (CK-2) Troponin T C-Reactive Protein Total Protein Albumin Triglycerides Cholesterol HDL Cholesterol Vitamin B12 Urine Creatinine Urine Total Protein Heparin-induced Plt Ab Hep Bs Antibody, Quant Crossmatch 01/07/17 01/07/17 01/08/17 16:20 21:41 06:05 WBC RBC Hgb Hct MCV MCHC RDW Plt Count Lymph % (Auto) [place] % (Auto) [place] # Baso # Seg Neutrophils % Seg Neuts % (Manual) Lymphocytes % (Manual) Monocytes % (Manual) Nucleated RBC % Seg Neutrophils # Seg Neutrophils # Man Lymphocytes # (Manual) Monocytes # (Manual) Percent Retic Haptoglobin PT INR Fibrinogen D-Dimer POC ABG pH POC ABG pCO2 POC ABG pO2 Sodium Potassium Chloride Carbon Dioxide BUN Creatinine Glucose POC Glucose 144 H 249 H 327 H Lactic Acid Calcium Phosphorus Magnesium Iron TIBC Transferrin Total Bilirubin Direct Bilirubin AST ALT Alkaline Phosphatase Lactate Dehydrogenase CK-MB (CK-2) Troponin T C-Reactive Protein Total Protein Albumin Triglycerides Cholesterol HDL Cholesterol Vitamin B12 Urine Creatinine Urine Total Protein Heparin-induced Plt Ab Hep Bs Antibody, Quant Crossmatch 01/08/17 01/08/17 01/08/17 06:40 06:40 08:30 WBC RBC 2.62 L Hgb 7.8 L Hct 23.8 L MCV MCHC RDW 16.6 H Plt Count Lymph % (Auto) [place] % (Auto) [place] # Baso # Seg Neutrophils % Seg Neuts % (Manual) Lymphocytes % (Manual) Monocytes % (Manual) Nucleated RBC % Seg Neutrophils # Seg Neutrophils # Man Lymphocytes # (Manual) Monocytes # (Manual) Percent Retic Haptoglobin PT INR Fibrinogen D-Dimer POC ABG pH POC ABG pCO2 POC ABG pO2 Sodium Potassium 5.4 H Chloride Carbon Dioxide 15 L BUN 46 H Creatinine 1.3 H Glucose 340 H POC Glucose Lactic Acid 4.80 H* Calcium 7.6 L Phosphorus Magnesium Iron TIBC Transferrin Total Bilirubin Direct Bilirubin AST ALT Alkaline Phosphatase Lactate Dehydrogenase CK-MB (CK-2) Troponin T C-Reactive Protein Total Protein Albumin Triglycerides Cholesterol HDL Cholesterol Vitamin B12 Urine Creatinine Urine Total Protein Heparin-induced Plt Ab Hep Bs Antibody, Quant Crossmatch 01/08/17 01/08/17 08:55 11:48 WBC RBC Hgb Hct MCV MCHC RDW Plt Count Lymph % (Auto) [place] % (Auto) [place] # Baso # Seg Neutrophils % Seg Neuts % (Manual) Lymphocytes % (Manual) Monocytes % (Manual) Nucleated RBC % Seg Neutrophils # Seg Neutrophils # Man Lymphocytes # (Manual) Monocytes # (Manual) Percent Retic Haptoglobin PT INR Fibrinogen D-Dimer POC ABG pH POC ABG pCO2 POC ABG pO2 Sodium Potassium Chloride Carbon Dioxide BUN Creatinine Glucose POC Glucose 348 H 379 H Lactic Acid Calcium Phosphorus Magnesium Iron TIBC Transferrin Total Bilirubin Direct Bilirubin AST ALT Alkaline Phosphatase Lactate Dehydrogenase CK-MB (CK-2) Troponin T C-Reactive Protein Total Protein Albumin Triglycerides Cholesterol HDL Cholesterol Vitamin B12 Urine Creatinine Urine Total Protein Heparin-induced Plt Ab Hep Bs Antibody, Quant Crossmatch
[2017-01-08] MEDS: LEVAQUIN PO SCH (18:03)
[2017-01-09] MEDS: NOVOLOG SUB-Q SCH ×3 (00:09→16:03)
[2017-01-09] MEDS: PERCOCET 5/325 PO PRN ×2 (01:37→10:38)
[2017-01-09] MEDS: BENADRYL PO PRN ×2 (01:38→10:39)
[2017-01-09] MEDS ORDERED: D50W (25GM) IV ONE ×4 (05:35→15:31)
[2017-01-09 05:54] LABS: Hematocrit 23.9 % (30.3-42.9); Hemoglobin 7.9 gm/dl (10.1-14.3); Mean Corpuscular HGB Conc 33 % (30-34); Mean Corpuscular Hemoglobin 29 pg (28-32); Mean Corpuscular Volume 89 fl (79-97); Platelet Count 406 K/mm3 (140-440); Red Blood Count 2.67 M/mm3 (3.65-5.03); Red Cell Distribution Width 17.1 % (13.2-15.2); White Blood Count 18.2 K/mm3 (4.5-11.0)
[2017-01-09] MEDS ORDERED: D50W (25GM) IV STA (06:18)
[2017-01-09 06:59] LABS: BUN/Creatinine Ratio 34.61; Calcium 8.1 mg/dL (8.4-10.2); Chloride 102.4 mmol/L (98-107)
[2017-01-09 08:07] LABS: Potassium 3.8 mmol/L (3.6-5.0)
[2017-01-09] MEDS: PEPCID PO SCH (09:33)
[2017-01-09] MEDS: DELTASONE PO SCH (09:33)
[2017-01-09] MEDS: LEVAQUIN PO SCH (09:33)
[2017-01-09] MEDS: LOPRESSOR PO SCH (09:33)
[2017-01-09] MEDS ORDERED: APRESOLINE IV PRN (09:34)
--- NOTE | 2017-01-09 09:47 | Discharge Summary ---
Providers - Providers Date of Admission: 12/04/16 01:07 Attending physician: ONEIDA SNYDER MD 12/06/16 09:17 Consult to Physician [CONS] Routine Consulting Provider: KEVIN GALLO Reason For Exam: vascath placement Place consult to:: Dr. Tejada Notified:: yes Phone number called:: Was contact made?: Yes If yes, spoke with:: DR. Tejada Time called:: 16:50 12/06/16 15:11 Consult to Dietitian/Nutrition [CONS] Routine Physician Instructions: Reason For Exam: Reason for Consult: Write/Manage Tube Feeding 12/06/16 18:23 Consult to PICC Line RN [CONS] Routine Reason For Exam: Hypotension Type Line:: PICC 12/07/16 08:00 Consult to Wound/ET Nurse [CONS] Urgent Reason For Exam: wound eval lefr ear pressure ulcer. 12/08/16 18:52 Consult to Physician [CONS] Routine Consulting Provider: CARMEN TOVAR Reason For Exam: Severe thrombocytopenia Place consult to:: Jacky SOMERS Notified:: yes Phone number called:: [phone] Was contact made?: Yes If yes, spoke with:: Gloria Time called:: 20:24 12/09/16 08:09 Consult to Physician [CONS] Routine Consulting Provider: GISELLE MCFARLANE Reason For Exam: Sepsis Place consult to:: Padilla SOMERS Notified:: y Comment:: recalled at 1602 on 01-04-17 12/09/16 17:38 Consult to Wound/ET Nurse [CONS] Routine Reason For Exam: wound eval sacrum 12/10/16 14:52 Speech Therapy Evaluation and Treat [CONS] Routine Reason For Exam: dyspasia 12/11/16 14:53 Consult to Physician [CONS] Routine Consulting Provider: DIEGO VILLNAUEVA Reason For Exam: PEG evaluation Place consult to:: Eugenio Villanueva MD Notified:: Eugenio Villanueva 12/15/16 10:18 Physical Therapy Evaluation and Treat [CONS] Routine Comment: Reason For Exam: eval & treat 12/15/16 16:40 Consult to Mental Health [CONS] Routine Reason For Exam: Depression Place consult to:: Office Notified:: yes Phone number called:: [phone] Was contact made?: Yes If yes, spoke with:: Anamaria Time called:: 16:49 12/16/16 10:57 Consult to Physician [CONS] Routine Consulting Provider: EDWIGE DORANTES Reason For Exam: Perm-catheter placement Place consult to:: Dr. Dorantes Notified:: Grace HINDS Phone number called:: Was contact made?: Yes If yes, spoke with:: Dolores-Office Time called:: 11:18 12/17/16 09:43 Consult to Case Management [CONS] Routine Services Needed at Discharge: Other Notified:: disease case manager rn Additional Physician Instructions: outpatient dialysis in [facility] 12/29/16 09:18 Consult to Physician [CONS] Routine Consulting Provider: EDWIGE DORANTES Reason For Exam: permcath removal Place consult to:: Dr. Dorantes Notified:: Gianni HINDS Was contact made?: Yes If yes, spoke with:: Eugenio Szymanski Time called:: 09:25 12/29/16 10:15 Consult to Case Management [CONS] Routine Services Needed at Discharge: Radiator Cleaner Notified:: GilCase Management Was contact made?: Yes If yes, spoke with:: Dottie-case management Time called:: 12:20 01/07/17 11:22 Consult to Physician [CONS] Routine Consulting Provider: SAMUEL DALE Reason For Exam: PERSISTENT NAUSEA WITH VOMITING Place consult to:: BRIGIDA PARKINSON Notified:: BRIGIDA Phone number called:: IN HOUSE Was contact made?: Yes If yes, spoke with:: BRIGIDA Time called:: 11:39 01/07/17 14:39 Speech Therapy Evaluation and Treat [CONS] Routine Reason For Exam: eval for slient aspiration 01/08/17 10:44 Consult to Wound/ET Nurse [CONS] Routine Reason For Exam: wound eval-right antecubital and left heel 01/08/17 11:10 Consult to Wound/ET Nurse [CONS] Routine Reason For Exam: right arm, back and heel Primary care physician: [facility] Hospitalization Reason for admission: DKA. VTACH Condition: Stable Hospital course: The patient is a 46-year-old woman with history of insulin-dependent diabetes mellitus, hypertension, recent SAH and dyslipidemia who presented with DKA, AMS and NSTEMI with V. fib arrest requiring IV amiodarone suppression. she was intubated and subsequently extubated. she was treated with IV insulin drip for documented DKA without ketones documentation but she was acidotic on admission and pressors but subsequently weaned off and transferred to the medical floor. Patient has had multiple admissions in the hospital multiple times and near experience in multiple times. Spesis secondary to Possible aspiration penumonitis. Patient is was admitted as noted above with DKA, AMS and also cardiac arrest with V.FIB/?Torsades and shocked twice, developed possible aspiration pneumonia and treated with antibiotics, also eventually had a bronchoscopy due to persistent infiltration in chest xray. Patient bronch showed multiple organisms , including, Pseuodmonas, Echoli, strep, frandy, possible colonization. Although patient maintained an elevated Lactic acid level, CRP eventually was negative. Patient was noted to have ASHELY and was treated with fluids then Bumex, with noted improvement. 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 We had extensive discussion with the patient about the importance of medications compliance. we printed resources to ensure cost savings. Patient will benefit from Doxycline and Levaquin for 1 week Patient must follow with Pulmonary in 1 Week and she verbalized understanding. She will have repeat chest xray in 3-6 weeks Uncontrolled DM Patient had labile BP and was treated with Insulin. Multiple period of Hypo and hyperglycemia was noted. She has repeated hypoglycemia with sliding scale which is affected by her PO intake. She will while on prednisone stay on Insulin 18 units BID and after the steroids can go down to 12 units BID with adjustments. Once A1C improved, the patient can change to oral. BP rechecked, 160/80 Gastroenteritis. Nausea and vomiting. resolved. GI reevaluation appreciated. No indication for endoscopy at this time. Acute hypoxic respiratory failure. Resolved. Patient was initially intubated and managed in the ICU. Severe Metabolic acidosis Resolved. Neprhology did manage the patient. Cardiac arrest with PEA arrest-->V. fib/?torsades was shocked twice - Likely from hyperkalemia, currently patient is stable. Was treated with amiodarone -Echo EF 40-45% - No recurrence Acute kidney injury secondary to ATN - Nephrology is following. Initial Treated with HD and resolved. Hyperkalemia- Treated with Kayxalate Malnutrition- Moderate: DKA: - resolved Acute metabolic encephalopathy, resolved Nstemi Type 2- Likely from Shock. Moderate protein calorie malnutrition Jacket Changer input noted Thrombocytopenia - Resolved Acute on chronic anemia of chronic disease, s/p total 4 units PRBC this admission - STABLE TODAY, will monitor Depression - Psych consulted and recommend outpatient mental health follow up. Disposition: [id number] HOME [facility] Time spent for discharge: 35 mins Core Measure Documentation - Palliative Care Palliative Care/ Comfort Measures: Not Applicable - Core Measures Any of the following diagnoses?: none - VTE Discharge Requirements Deep Vein Thrombosis/Pulmonary Embolism Present on Admission: No Exam - Physical Exam Narrative exam: VITAL SIGNS: Reviewed. GENERAL: The patient appeared more energetic today , cachetic. Vital signs as documented. HEAD: No signs of head trauma. temporal wasting noted EYES: Pupils are equal. Extraocular motions intact. EARS: Hearing grossly intact. MOUTH: Oropharynx is normal. NECK: No adenopathy, no JVD. CHEST: Chest with diminshed breath sounds bilaterally. No wheezes, rales, or rhonchi CARDIAC: Regular rate and rhythm. S1 and S2, without murmurs, gallops, or rubs. VASCULAR: Trace Edema. Peripheral pulses normal and equal in all extremities. ABDOMEN: Soft, without detectable tenderness. No sign of distention. No rebound or guarding, and no masses palpated. Bowel Sounds normal. MUSCULOSKELETAL: Good range of motion of all major joints. Extremities without clubbing, cyanosis. Trace edema. NEUROLOGIC EXAM: Alert and oriented x 3. No focal sensory or strength deficits. Speech normal. Follows commands. PSYCHIATRIC: Mood normal. SKIN: left heel with pressure changes, no ulcer. Antecubteal Irritation with no ulceration. - Constitutional Vitals: Temp Pulse Resp BP Pulse Ox 97.5 F L 95 H 20 180/106 98 01/09/17 07:10 01/09/17 07:10 01/09/17 07:10 01/09/17 07:10 01/09/17 07:10 Plan Activity: advance as tolerated, up only with assistance Diet: low fat, diabetic Special Instructions: record daily weights, record daily BP diary, record blood sugar diary Additional Instructions: Repeat RENAL FUNCTION TEST IN 1 WEEK Follow up with: ARMANDO MICHELLE MD [Staff Physician] - 7 Days PRIMARY MD JOURDAN [Primary Care Provider] - 3-5 Days GEORGES FLORES MD [Staff Physician] - 7 Days GISELLE MCFARLANE MD [Staff Physician] - 7 Days Prescriptions: Doxycycline [Vibramycin CAP] 100 mg PO Q12HR 10 Days Famotidine [Pepcid] 20 mg PO DAILY #30 tablet Insulin NPH/Regular [NovoLIN 70/30] 18 unit SUB-Q BIDDIAB #60 units Levofloxacin [Levaquin TAB] 500 mg PO Q24HR #10 tablet Losartan [Cozaar] 50 mg PO QDAY #30 tablet Metoprolol [Lopressor TAB] 25 mg PO BID #60 tablet predniSONE [Deltasone] 60 mg PO QDAY 30 Days Other Discharge Orders: Glucometer (Amb) Location: Determined By Patient Glucometer supplies[Amb] Location: Determined By Patient
[2017-01-09] MEDS ORDERED: D50W (25GM) IV PRN (12:00)
[2017-01-09] MEDS: DOXYCYCLINE HYCLATE 100 MG in NACL 0.9% 250ML 250 ML IV SCH (12:11)
[2017-01-09] MEDS ORDERED: TRIPLE ANTIBIOTIC TP ONE (14:00)
[2017-01-09 16:00] VITALS: BP 163/97
== END 2017-01-09 17:15 | disposition home health service (06) | DRG 870 ==
LOC: ED 22:53 → CC1 12-04 01:07 → 4A 12-11 20:28 → 3A 01-04 23:16
PROVIDERS: ADMIT Internal Medicine; ATTEND Internal Medicine
PROC: 06HM33Z Insertion of Infusion Device into Right Femoral Vein, Percutaneous Approach (ICD-10-PCS; 2016-12-07)
PROC: B54BZZA Ultrasonography of Right Lower Extremity Veins, Guidance (ICD-10-PCS; 2016-12-07)
PROC: 5A1955Z Respiratory Ventilation, Greater than 96 Consecutive Hours (ICD-10-PCS; principal; 2016-12-17)
PROC: 05HM33Z Insertion of Infusion Device into Right Internal Jugular Vein, Percutaneous Approach (ICD-10-PCS; 2016-12-17)
PROC: B543ZZA Ultrasonography of Right Jugular Veins, Guidance (ICD-10-PCS; 2016-12-17)
PROC: 5A1D60Z (ICD-10-PCS; 2016-12-19)
PROC: 30233N1 Transfusion of Nonautologous Red Blood Cells into Peripheral Vein, Percutaneous Approach (ICD-10-PCS; 2016-12-22)
PROC: 30233R1 Transfusion of Nonautologous Platelets into Peripheral Vein, Percutaneous Approach (ICD-10-PCS; 2016-12-22)
PROC: 0BB68ZX Excision of Right Lower Lobe Bronchus, Via Natural or Artificial Opening Endoscopic, Diagnostic (ICD-10-PCS; 2016-12-31)
PROC: 0BBB8ZX Excision of Left Lower Lobe Bronchus, Via Natural or Artificial Opening Endoscopic, Diagnostic (ICD-10-PCS; 2016-12-31)
DX: A41.9 Sepsis, unspecified organism (principal); J96.01 Acute respiratory failure with hypoxia; I46.9 Cardiac arrest, cause unspecified; N17.0 Acute kidney failure with tubular necrosis; G93.41 Metabolic encephalopathy; I21.4 Non-ST elevation (NSTEMI) myocardial infarction; R65.21 Severe sepsis with septic shock; J69.0 Pneumonitis due to inhalation of food and vomit; E10.10 Type 1 diabetes mellitus with ketoacidosis without coma; E87.0 Hyperosmolality and hypernatremia; E44.0 Moderate protein-calorie malnutrition; I12.9 Hypertensive chronic kidney disease with stage 1 through stage 4 chronic kidney disease, or unspecified chronic kidney disease; E87.5 Hyperkalemia; K21.9 Gastro-esophageal reflux disease without esophagitis; N18.9 Chronic kidney disease, unspecified; I95.9 Hypotension, unspecified; D63.8 Anemia in other chronic diseases classified elsewhere; D69.6 Thrombocytopenia, unspecified; F32.9 Major depressive disorder, single episode, unspecified; E78.5 Hyperlipidemia, unspecified; E10.22 Type 1 diabetes mellitus with diabetic chronic kidney disease; E10.65 Type 1 diabetes mellitus with hyperglycemia; K52.9 Noninfective gastroenteritis and colitis, unspecified; Z79.4 Long term (current) use of insulin; Z91.14 Patient's other noncompliance with medication regimen; Z68.22 Body mass index [BMI] 22.0-22.9, adult
CPT/HCPCS: 36415; 36430; 36558; 36600; 70450; 71010; 71020; 71250; 74000; 74230; 76770; 77001; 78582; 80048; 80053; 80061; 80074; 80307; 81001; 81025; 82140; 82550; 82553; 82565; 82570; 82575; 82607; 82728; 82747; 82803; 82947; 82962; 83010; 83550; 83615; 83735; 83935; 84100; 84132; 84156; 84300; 84443; 84466; 84484; 85007; 85025; 85027; 85045; 85379; 85384; 85610; 85730; 86022; 86140; 86705; 86706; 86803; 86850; 86900; 86901; 86920; 87040; 87070; 87076; 87086; 87102; 87116; 87186; 87205; 87220; 87806; 88104; 88112; 88305; 93005; 93010; 93306; 94002; 94003; 94640; 94760; 96360; A6250; A9540; A9558; C1750; J0171; J0282; J0360; J0610; J0690; J0885; J1170; J1644; J1650; J1815; J1818; J1956; J2185; J2250; J2270; J2310; J2405; J2543; J2704; J2765; J2997; J3010; J3260; J3370; J3475; J3480; J7030; J7040; J7050; J7060; J7070; J7512; P9016; P9035

== ENCOUNTER 2017-01-29 09:54 | Inpatient (IN) | payer SELFPAY ==
--- NOTE | 2017-01-29 10:42 | XRay Report ---
CHEST 2 VIEWS INDICATION: Shortness of breath. COMPARISON: 01/07/2017 FINDINGS: PA and lateral chest radiographs demonstrate improving peripheral right upper to midlung opacity/pneumonia with mild residual density/scarring seen in the same location and at the right lung base. Right hemidiaphragm slightly elevated. Interval left upper extremity PICC removal. No pleural effusions or CHF. Borderline/slight cardiomegaly. Intact bones. CONCLUSION: Improving right mid lung pneumonia with mild right lung scarring/volume loss, slight cardiomegaly and interval left upper extremity PICC removal noted, as described. Thank you for the opportunity to participate in this patient's care.
[2017-01-29 10:48] LABS: Basophils % (Auto) 0.2 % (0.0-1.8); Eosinophils % (Auto) 0.2 % (0.0-4.3); Hematocrit 32.3 % (30.3-42.9); Hemoglobin 10.1 gm/dl (10.1-14.3); Mean Corpuscular HGB Conc 31 % (30-34); Mean Corpuscular Hemoglobin 29 pg (28-32); Mean Corpuscular Volume 94 fl (79-97); Platelet Count 301 K/mm3 (140-440); Red Blood Count 3.44 M/mm3 (3.65-5.03); White Blood Count 15.9 K/mm3 (4.5-11.0)
[2017-01-29 11:07] LABS: Anion Gap 21 mmol/L; Blood Urea Nitrogen 36 mg/dL (7-17); Calcium 7.9 mg/dL (8.4-10.2); Carbon Dioxide 15 mmol/L (22-30); Chloride 109.9 mmol/L (98-107); Potassium 4.7 mmol/L (3.6-5.0); Sodium 141 mmol/L (137-145)
[2017-01-29 11:08] LABS: Red Cell Distribution Width 21.7 % (13.2-15.2)
[2017-01-29 11:31] LABS: Glucose 96 mg/dL (65-100)
[2017-01-29] MEDS ORDERED: D50W (25GM) Syringe IV ONE ×4 (13:51→19:18)
[2017-01-29] MEDS: D50W (25GM) Vial IV ONE ×2 (14:05→18:21)
[2017-01-29] MEDS ORDERED: LEVAQUIN 750MG/150ML 750 MG/150 ML BAG IV ONE (15:36)
[2017-01-29] MEDS ORDERED: NORMODYNE IV ONE (15:42)
[2017-01-29] MEDS ORDERED: NACL 0.9% 1000 ML 1,000 ML IV ONE ×2 (16:28→16:37)
[2017-01-29 16:54] LABS: Alanine Aminotransferase 146 units/L (7-56); Albumin 3.5 g/dL (3.9-5); Albumin/Globulin Ratio 1.6 %; Alkaline Phosphatase 221 units/L (35-129); Total Protein 5.7 g/dL (6.3-8.2)
[2017-01-29 17:03] LABS: INR 1.05 (0.87-1.13)
--- NOTE | 2017-01-29 17:03 | Emergency Department Report ---
ED General Adult HPI - General Chief complaint: Weakness Stated complaint: LEGS/FEET/FACE SWOLLEN Time Seen by Provider: 01/29/17 15:05 Source: patient Mode of arrival: Ambulatory Limitations: No Limitations - History of Present Illness Initial comments: The patient presented to triage with generalized weakness. She was found to have a blood sugar of 40. She was brought back and given D50 by the nursing staff. She states that she was discharged from this facility first week of this month I believe it may have been January 07 after a more than one month hospitalization. According to the records the patient had a STEMI, V. fib and cardioversion. She was treated in the hospital for a variety of problems to include possible aspiration pneumonitis uncontrolled diabetes acute hypoxic respiratory failure severe metabolic acidosis requiring dialysis and complicated by acute renal failurehyperkalemia, etc. She states that she did get her medication upon discharge which would have included losartan and metoprolol as well as prednisone (records state 60 mg daily for a month). Patient stated that she actually came to the hospital because she wanted to be evaluated for leg and facial swelling. She states that she does have dyspnea on exertion. She is not dyspneic at rest. Severity scale (0 -10): 0 - Related Data Previous Rx's Medication Instructions Recorded Last Taken Type Metoprolol [Lopressor TAB] 25 mg PO BID #60 tablet 12/29/16 Unknown Rx predniSONE [Deltasone] 60 mg PO QDAY 30 Days 01/04/17 Unknown Rx Doxycycline [Vibramycin CAP] 100 mg PO Q12HR 10 Days 01/09/17 Unknown Rx Famotidine [Pepcid] 20 mg PO DAILY #30 tablet 01/09/17 Unknown Rx Insulin NPH/Regular [Novolin 70/30] 14 unit SQ BIDDIAB 30 Days 01/09/17 Unknown Rx Levofloxacin [Levaquin TAB] 500 mg PO Q24HR #10 tablet 01/09/17 Unknown Rx Losartan [Cozaar] 50 mg PO QDAY #30 tablet 01/09/17 Unknown Rx Allergies Allergy/AdvReac Type Severity Reaction Status Date / Time No Known Allergies Allergy Verified 12/03/16 23:01 ED Review of Systems ROS: Stated complaint: LEGS/FEET/FACE SWOLLEN Other details as noted in HPI Constitutional: denies: chills, fever Eyes: denies: eye pain, eye discharge, vision change ENT: denies: ear pain, throat pain Respiratory: cough, orthopnea, SOB with exertion. denies: SOB at rest, wheezing Cardiovascular: denies: chest pain, palpitations Endocrine: no symptoms reported Gastrointestinal: denies: abdominal pain, nausea, diarrhea Genitourinary: denies: urgency, dysuria, discharge Musculoskeletal: as per HPI, other (severe leg swelling). denies: back pain, joint swelling, arthralgia Skin: denies: rash, lesions Neurological: denies: headache, weakness, paresthesias Psychiatric: denies: anxiety, depression Hematological/Lymphatic: denies: easy bleeding, easy bruising ED Past Medical Hx - Past Medical History Previous Medical History?: Yes Hx Hypertension: Yes Hx Heart Attack/AMI: Yes (STEMI on arrival to ER, VFIB and Amiodarone used, converted and stable now) Hx Congestive Heart Failure: No Hx Diabetes: Yes Hx Deep Vein Thrombosis: No Hx GERD: Yes Hx Sickle Cell Disease: No Hx Asthma: No Hx COPD: No Hx HIV: No - Surgical History Past Surgical History?: No Hx Pacemaker: No Hx Internal Defibrillator: No - Social History Smoking Status: Never Smoker Substance Use Type: None - Medications Home Medications: Home Medications Medication Instructions Recorded Confirmed Last Taken Type Metoprolol [Lopressor TAB] 25 mg PO BID #60 tablet 12/29/16 Unknown Rx predniSONE [Deltasone] 60 mg PO QDAY 30 Days 01/04/17 Unknown Rx Doxycycline [Vibramycin CAP] 100 mg PO Q12HR 10 Days 01/09/17 Unknown Rx Famotidine [Pepcid] 20 mg PO DAILY #30 tablet 01/09/17 Unknown Rx Insulin NPH/Regular [Novolin 70/30] 14 unit SQ BIDDIAB 30 Days 01/09/17 Unknown Rx Levofloxacin [Levaquin TAB] 500 mg PO Q24HR #10 tablet 01/09/17 Unknown Rx Losartan [Cozaar] 50 mg PO QDAY #30 tablet 01/09/17 Unknown Rx ED Physical Exam - General Limitations: No Limitations General appearance: alert, in no apparent distress - Head Head exam: Present: atraumatic, normocephalic - Eye Eye exam: Present: normal appearance - ENT ENT exam: Present: mucous membranes moist - Neck Neck exam: Present: normal inspection. Absent: tenderness, meningismus - Respiratory Respiratory exam: Present: rhonchi. Absent: respiratory distress - Cardiovascular Cardiovascular Exam: Present: regular rate, normal rhythm. Absent: systolic murmur, diastolic murmur, rubs, gallop - GI/Abdominal GI/Abdominal exam: Present: soft, normal bowel sounds, other (abdomen wall edema ). Absent: distended, tenderness, guarding, rebound, rigid - Extremities Exam Extremities exam: Present: other (or plus leg and pedal edema) - Back Exam Back exam: Present: normal inspection - Neurological Exam Neurological exam: Present: alert, oriented X3, CN II-XII intact. Absent: motor sensory deficit - Psychiatric Psychiatric exam: Present: normal affect, normal mood - Skin Skin exam: Present: warm, dry, intact, normal color. Absent: rash ED Course Vital Signs 01/29/17 01/29/17 01/29/17 10:01 14:05 15:10 Temperature 98.5 F 94.8 F L Pulse Rate 114 H 90 Respiratory 18 23 Rate Blood Pressure 161/106 Blood Pressure 197/124 [Left] O2 Sat by Pulse 100 100 Oximetry 01/29/17 16:55 Temperature 97.5 F L Pulse Rate 99 H Respiratory 19 Rate Blood Pressure Blood Pressure 180/106 [Left] O2 Sat by Pulse 98 Oximetry - Reevaluation(s) Reevaluation #1: The patient was given labetalol initially. Her blood pressure responded minimally. An inch of Nitropaste was ordered in addition. She is already prerenal so I am going to avoid diuretics at this point. She was hypoglycemic and 1 rectal temp was obtained which was found to be less than 95. Her chest x- ray did show a right middle lobe infiltrate which was actually improved from prior hospitalization. However my impression was that sepsis could not be excluded. She was treated with Levaquin and vancomycin. Later her lactic acid level did come back quite elevated. She apparently has a severe cardiomyopathy and accelerated hypertension. Therefore, we are unable to give her any significant fluid at this time. Further fluid management will be per hospitalist staff. She was admitted by Dr. Campbell. 01/29/17 17:59 ED Medical Decision Making - Lab Data Result diagrams: 01/29/17 10:18 01/29/17 10:18 Laboratory Results - last 24 hr 01/29/17 01/29/17 01/29/17 10:18 10:18 13:41 WBC 15.9 H RBC 3.44 L Hgb 10.1 Hct 32.3 MCV 94 MCH 29 MCHC 31 RDW 21.7 H Plt Count 301 Lymph % (Auto) 4.8 L [place] % (Auto) 5.9 Eos % (Auto) 0.2 Baso % (Auto) 0.2 Lymph # 0.8 L [place] # 0.9 H Eos # 0.0 Baso # 0.0 Seg Neutrophils % 88.9 H Seg Neutrophils # 14.1 H Sodium 141 Potassium 4.7 Chloride 109.9 H Carbon Dioxide 15 L Anion Gap 21 BUN 36 H Creatinine 1.0 Estimated GFR > 60 BUN/Creatinine Ratio 36.00 Glucose 96 POC Glucose < 40 L Calcium 7.9 L Magnesium Total Bilirubin AST ALT Alkaline Phosphatase Troponin T < 0.010 NT-Pro-B Natriuret Pep Total Protein Albumin Albumin/Globulin Ratio 01/29/17 01/29/17 01/29/17 14:03 15:38 16:15 WBC RBC Hgb Hct MCV MCH MCHC RDW Plt Count Lymph % (Auto) [place] % (Auto) Eos % (Auto) Baso % (Auto) Lymph # [place] # Eos # Baso # Seg Neutrophils % Seg Neutrophils # Sodium Potassium Chloride Carbon Dioxide Anion Gap BUN Creatinine Estimated GFR BUN/Creatinine Ratio Glucose POC Glucose 165 H 90 Calcium Magnesium 2.30 Total Bilirubin 0.50 AST 65 H ALT 146 H Alkaline Phosphatase 221 H Troponin T NT-Pro-B Natriuret Pep 5205 H Total Protein 5.7 L Albumin 3.5 L Albumin/Globulin Ratio 1.6 - EKG Data -: EKG Interpreted by Me EKG shows normal: sinus rhythm, axis, intervals, QRS complexes, ST-T waves Rate: normal - EKG Data Interpretation: no acute changes - Radiology Data Radiology results: report reviewed interpreted by me: Negative per CHF per radiologist. However there is some cephalization of flow. There is a right middle lobe infiltrate which is improved compared to prior film. My impression is that there is cardiomegaly as well. Critical care attestation.: If time is entered above; I have spent that time in minutes in the direct care of this critically ill patient, excluding procedure time. ED Disposition Clinical Impression: Accelerated hypertension, Hypoglycemia, Anasarca, Prerenal azotemia, Lactic acidosis Cardiomyopathy Qualifiers: Cardiomyopathy type: unspecified Qualified Code(s): I42.9 - Cardiomyopathy, unspecified Leukocytosis Qualifiers: Leukocytosis type: unspecified Qualified Code(s): D72.829 - Elevated white blood cell count, unspecified Pneumonia Qualifiers: Pneumonia type: due to unspecified organism Laterality: right Lung location: middle lobe of lung Qualified Code(s): J18.1 - Lobar pneumonia, unspecified organism Hypothermia Qualifiers: Encounter type: initial encounter Qualified Code(s): T68.XXXA - Hypothermia, initial encounter Disposition: 09 OP ADMIT IP TO THIS HOSP Is pt being admited?: Yes Does the pt Need Aspirin: Yes Condition: Stable Instructions: Hypertension (ED), Bacterial Pneumonia (ED) Referrals: PRIMARY CARE, [Primary Care Provider] - 3-5 Days Time of Disposition: 18:02
[2017-01-29] MEDS ORDERED: NITRO-BID 2% TP ONE (17:05)
[2017-01-29 17:23] LABS: Bilirubin,Direct < 0.2 mg/dL (0-0.2); Bilirubin,Indirect 0.3 mg/dL
[2017-01-29] MEDS ORDERED: VANCOMYCIN 1,500 MG in NACL 0.9% 500 ML 500 ML IV ONE (17:30)
[2017-01-29] MEDS ORDERED: VANCOMYCIN PHARMACY TO DOSE IV SCH (18:00)
[2017-01-29] MEDS ORDERED: BABY ASPIRIN PO ONE (18:02)
[2017-01-29 18:03] LABS: Bilirubin,Urine NEG (Negative); Blood,Urine NEG (Negative); Ketones,Urine NEG (Negative); Leukocyte Esterase,Urine NEG (Negative); Mucus,Urine FEW /HPF; Nitrite,Urine NEG (Negative); Urobilinogen,Urine < 2.0 mg/dL (<2.0)
[2017-01-29 18:04] LABS: Protein,Urine >500 mg/dL (Negative)
[2017-01-29 18:11] LABS: Creatine Kinase MB 1.7 ng/mL (0.0-4.0)
[2017-01-29 18:12] LABS: Creatine Kinase 39 units/L (30-135)
--- NOTE | 2017-01-29 18:53 | Admit Criteria Form ---
Admission Criteria Documentation: HYPERTENSION Clinical Indications for Admission to Inpatient Care ( saxman/check or initial the applicable condition/criteria) Admission is indicated for 1 or more of the following(1)(2)(3)(4)(5)(6)(7)(8)(9) (10): [ ]I. Hypertensive emergency, with evidence of acute and progressing target organ disease as indicated by 1 or more of the following: [ ]a) Hypertensive encephalopathy (e.g., confusion, altered mental status) (11) [ ]b) Cerebral infarction [ ]c) Intracranial hemorrhage [ ]d) Myocardial ischemia or infarction [ ]e) Heart failure (eg. Pulmonary edema) [ ]f) Aortic dissection [ ]g) Increased creatinine (new) with reduction of more than 50% in estimated glomerular filtration rate from baseline [ ]h) Seizure [ ]i) Papilledema [ ]j) Retinal hemorrhage [ ]k) Microangiopathic hemolytic anemia [ ]l) Other significant finding secondary to hypertension [ ]II. Adrenergic or sympathomimetic crisis (e.g., severe hypertension due to pheochromocytoma crisis, cocaine, phencyclindine, or amphetamine intoxication, or clonidine withdrawal) [X ]III. Severe hypertension (SBP greater than 180 mmHg or DBP greater than 110 mmHg or greater than the 95th percentile for age, gender, and height in pediatric patients) that cannot be controlled (e.g., to SBP less than 160 mmHg and DBP less than 100 mmHg in adults) by treatment with oral medication in emergency department or observation care (12) Extended stay beyond goal length of staymay be needed for(21)(22): [ ]a) Persistent hypertensive encephalopathy [ ]b) Continuation of pulmonary edema [ ]c) Recurring or persistent severe hypertension [ ]d) Target organ damage (eg, angina, stroke, aortic dissection) The original [employer] content created by [employer] has been revised. The portions of the content which have been revised are identified through the use of italic text or in bold, and [employer] has neither reviewed nor approved the modified material. All other unmodified content is copyright [employer]. Please see references footnoted in the original [employer] edition 2016 Admission Criteria Met: Yes
--- NOTE | 2017-01-29 18:59 | History and Physical Report ---
History of Present Illness Date of examination: 01/29/17 Date of admission: 01/29/17 Chief complaint: CC: Facial and Leg swelling for 3 days. History of present illness: AMY: 46 y/o female with recent hospitalization for STEMI/Vfib/Acute renal failure necessisating HD and discharged after one month of stay on 01/09/17. Not taking her discharge medications. Now she has bilateral leg swelling and facial puffines. Also SOB on minimal exertion. Orthopnea and Gen weakness present. From recent Discharge summary on 01/09/17 The patient is a 46-year-old woman with history of insulin-dependent diabetes mellitus, hypertension, recent SAH and dyslipidemia who presented with DKA, AMS and NSTEMI with V. fib arrest requiring IV amiodarone suppression. she was intubated and subsequently extubated. she was treated with IV insulin drip for documented DKA without ketones documentation but she was acidotic on admission and pressors but subsequently weaned off and transferred to the medical floor. Patient has had multiple admissions in the hospital multiple times and near experience in multiple times. Past History Past Medical History: diabetes, heart failure, hypertension, hyperlipidemia, stroke Social history: smoking, alcohol abuse Family history: hypertension Medications and Allergies Allergies Allergy/AdvReac Type Severity Reaction Status Date / Time No Known Allergies Allergy Verified 12/03/16 23:01 Home Medications Medication Instructions Recorded Confirmed Last Taken Type Metoprolol [Lopressor TAB] 25 mg PO BID #60 tablet 12/29/16 01/29/17 Unknown Rx predniSONE [Deltasone] 60 mg PO QDAY 30 Days 01/04/17 01/29/17 Unknown Rx Doxycycline [Vibramycin CAP] 100 mg PO Q12HR 10 Days 01/09/17 01/29/17 Unknown Rx Famotidine [Pepcid] 20 mg PO DAILY #30 tablet 01/09/17 01/29/17 Unknown Rx Insulin NPH/Regular [Novolin 70/30] 14 unit SQ BIDDIAB 30 Days 01/09/17 Unknown Rx Levofloxacin [Levaquin TAB] 500 mg PO Q24HR #10 tablet 01/09/17 01/29/17 Unknown Rx Losartan [Cozaar] 50 mg PO QDAY #30 tablet 01/09/17 01/29/17 Unknown Rx Active Meds: Active Medications Vancomycin HCl 1,500 mg/ (Sodium Chloride) 515 mls @ 333.333 mls/hr IV ONCE.ED ONE Stop: 01/29/17 19:02 Last Admin: 01/29/17 18:54 Dose: 333.333 mls/hr Vancomycin HCl 500 mg/ Sodium (Chloride) 100 mls @ 50 mls/hr IV Q12H [facility] Vancomycin HCl (Vancomycin Pharmacy To Dose) 1 each IV PKCONSULT [facility] PRN Reason: Protocol Review of Systems All systems: negative Constitutional: weight gain, no weight loss, no fever, no chills, no sweats, no night sweats Ears, nose, mouth and throat: no hoarseness, no sore throat, no swelling in mouth, no swelling in throat Breasts: deferred Cardiovascular: orthopnea, edema, shortness of breath, dyspnea on exertion Respiratory: shortness of breath, dyspnea on exertion, congestion, no cough, no cough with sputum, no excessive sputum, no hemoptysis Gastrointestinal: no nausea, no vomiting, no diarrhea, no constipation, no change in bowel habits, no hematemesis, no coffee ground emesis Genitourinary Female: no flank pain, no menorrhagia, no dysuria, no urinary frequency, no urgency, no stress incontinence, no post void dribbling, no incomplete emptying Musculoskeletal: no neck stiffness, no neck pain, no shooting arm pain, no arm numbness/tingling, no low back pain, no shooting leg pain, no leg numbness/ tingling, no redness of joints Integumentary: no rash, no pruritis, no redness, no sores, no wounds, no jaundice, no boils, no blisters Neurological: no head injury, no transient paralysis, no paralysis, no seizures , no syncope Psychiatric: no anxiety, no memory loss, no change in sleep habits, no sleep disturbances, no insomnia, no hypersomnia, no change in appetite, no change in libido Endocrine: no cold intolerance, no heat intolerance, no polyphagia, no excessive thirst, no polydipsia, no polyuria, no nocturia Hematologic/Lymphatic: no easy bruising, no easy bleeding Allergic/Immunologic: no urticaria, no allergic rhinitis, no wheezing Exam - Constitutional Vitals: Temp Pulse Resp BP Pulse Ox 97.5 F L 102 H 23 170/108 100 01/29/17 18:54 01/29/17 17:49 01/29/17 17:49 01/29/17 17:49 01/29/17 17:49 General appearance: Present: mild distress, well-nourished - EENT Eyes: Present: PERRL ENT: hearing intact, clear oral mucosa - Neck Neck: Present: supple, normal ROM - Respiratory Respiratory effort: normal Respiratory: bilateral: CTA, rales - Cardiovascular Heart rate: 100 Rhythm: regular Heart Sounds: Present: S1 & S2. Absent: rub, click - Extremities Extremities: no ischemia, pulses symmetrical, No edema, abnormal Extremity abnormal: edema (Juan 4 plus edema) Peripheral Pulses: within normal limits - Abdominal General gastrointestinal: Present: soft, non-tender, non-distended, normal bowel sounds Female genitourinary: Present: normal - Rectal Rectal Exam: deferred - Integumentary Integumentary: Present: clear, warm, dry - Musculoskeletal Musculoskeletal: gait normal, strength equal bilaterally - Psychiatric Psychiatric: appropriate mood/affect, intact judgment & insight - Neurologic Neurologic: CNII-XII intact, moves all extremities - Allied Health Allied health notes reviewed: nursing, case management Results - Labs CBC & Chem 7: 01/30/17 05:53 01/30/17 05:53 Labs: Laboratory Last Values WBC 15.9 K/mm3 (4.5-11.0) H 01/29/17 10:18 RBC 3.44 M/mm3 (3.65-5.03) L 01/29/17 10:18 Hgb 10.1 gm/dl (10.1-14.3) 01/29/17 10:18 Hct 32.3 % (30.3-42.9) 01/29/17 10:18 MCV 94 fl (79-97) 01/29/17 10:18 MCH 29 pg (28-32) 01/29/17 10:18 MCHC 31 % (30-34) 01/29/17 10:18 RDW 21.7 % (13.2-15.2) H 01/29/17 10:18 Plt Count 301 K/mm3 (140-440) 01/29/17 10:18 Lymph % (Auto) 4.8 % (13.4-35.0) L 01/29/17 10:18 [place] % (Auto) 5.9 % (0.0-7.3) 01/29/17 10:18 Eos % (Auto) 0.2 % (0.0-4.3) 01/29/17 10:18 Baso % (Auto) 0.2 % (0.0-1.8) 01/29/17 10:18 Lymph # 0.8 K/mm3 (1.2-5.4) L 01/29/17 10:18 [place] # 0.9 K/mm3 (0.0-0.8) H 01/29/17 10:18 Eos # 0.0 K/mm3 (0.0-0.4) 01/29/17 10:18 Baso # 0.0 K/mm3 (0.0-0.1) 01/29/17 10:18 Seg Neutrophils % 88.9 % (40.0-70.0) H 01/29/17 10:18 Seg Neutrophils # 14.1 K/mm3 (1.8-7.7) H 01/29/17 10:18 PT 13.6 Sec. (12.2-14.9) 01/29/17 15:38 INR 1.05 (0.87-1.13) 01/29/17 15:38 APTT 23.0 Sec. (24.2-36.6) L 01/29/17 15:38 Sodium 141 mmol/L (137-145) 01/29/17 10:18 Potassium 4.7 mmol/L (3.6-5.0) 01/29/17 10:18 Chloride 109.9 mmol/L (98-107) H 01/29/17 10:18 Carbon Dioxide 15 mmol/L (22-30) L 01/29/17 10:18 Anion Gap 21 mmol/L 01/29/17 10:18 BUN 36 mg/dL (7-17) H 01/29/17 10:18 Creatinine 1.0 mg/dL (0.7-1.2) 01/29/17 10:18 Estimated GFR > 60 ml/min 01/29/17 10:18 BUN/Creatinine Ratio 36.00 % 01/29/17 10:18 Glucose 96 mg/dL (65-100) 01/29/17 10:18 POC Glucose 90 (70-105) 01/29/17 16:15 Lactic Acid 3.20 mmol/L (0.7-2.0) H* 01/29/17 15:38 Calcium 7.9 mg/dL (8.4-10.2) L 01/29/17 10:18 Magnesium 2.30 mg/dL (1.7-2.3) 01/29/17 15:38 Total Bilirubin 0.50 mg/dL (0.1-1.2) 01/29/17 15:38 Direct Bilirubin < 0.2 mg/dL (0-0.2) 01/29/17 15:38 Indirect Bilirubin 0.3 mg/dL 01/29/17 15:38 AST 65 units/L (5-40) H 01/29/17 15:38 ALT 146 units/L (7-56) H 01/29/17 15:38 Alkaline Phosphatase 221 units/L (35-129) H 01/29/17 15:38 Ammonia 54.0 umol/L (25-60) 01/29/17 15:38 Total Creatine Kinase 39 units/L (30-135) 01/29/17 15:38 CK-MB (CK-2) 1.7 ng/mL (0.0-4.0) 01/29/17 15:38 CK-MB (CK-2) Rel Index 4.3 (0-4) H 01/29/17 15:38 Troponin T < 0.010 ng/mL (0.00-0.029) 01/29/17 15:38 NT-Pro-B Natriuret Pep 5205 pg/mL (0-450) H 01/29/17 15:38 Total Protein 5.7 g/dL (6.3-8.2) L 01/29/17 15:38 Albumin 3.5 g/dL (3.9-5) L 01/29/17 15:38 Albumin/Globulin Ratio 1.6 % 01/29/17 15:38 Urine Color Yellow (Yellow) 01/29/17 16:55 Urine Turbidity Clear (Clear) 01/29/17 16:55 Urine pH 5.0 (5.0-7.0) 01/29/17 16:55 Ur Specific [place] 1.020 (1.003-1.030) 01/29/17 16:55 Urine Protein >500 mg/dL (Negative) 01/29/17 16:55 Urine Glucose (UA) 50 mg/dL (Negative) 01/29/17 16:55 Urine Ketones Neg mg/dL (Negative) 01/29/17 16:55 Urine Blood Neg (Negative) 01/29/17 16:55 Urine Nitrite Neg (Negative) 01/29/17 16:55 Urine Bilirubin Neg (Negative) 01/29/17 16:55 Urine Urobilinogen < 2.0 mg/dL (<2.0) 01/29/17 16:55 Ur Leukocyte Esterase Neg (Negative) 01/29/17 16:55 Urine WBC (Auto) 2.0 /HPF (0.0-6.0) 01/29/17 16:55 Urine RBC (Auto) 6.0 /HPF (0.0-6.0) 01/29/17 16:55 U Epithel Cells (Auto) 8.0 /HPF (0-13.0) 01/29/17 16:55 Urine Mucus Few /HPF 01/29/17 16:55 Short CBC 01/29/17 01/30/17 Range/Units 10:18 05:53 WBC 15.9 H 12.4 H (4.5-11.0) K/mm3 Hgb 10.1 9.5 L (10.1-14.3) gm/dl Hct 32.3 29.4 L (30.3-42.9) % Plt Count 301 299 (140-440) K/mm3 BMP 01/29/17 01/30/17 10:18 05:53 Sodium 141 142 Potassium 4.7 5.0 Chloride 109.9 H 111.4 H Carbon Dioxide 15 L 18 L BUN 36 H 33 H Creatinine 1.0 0.9 Glucose 96 193 H Calcium 7.9 L 7.3 L Cardiac Enzymes 01/29/17 01/29/17 Range/Units 10:18 15:38 Total Creatine Kinase 39 (30-135) units/L CK-MB (CK-2) 1.7 (0.0-4.0) ng/mL Troponin T < 0.010 < 0.010 (0.00-0.029) ng/mL Liver Function 01/29/17 01/30/17 Range/Units 15:38 05:53 Total Bilirubin 0.50 0.40 (0.1-1.2) mg/dL Direct Bilirubin < 0.2 (0-0.2) mg/dL AST 65 H 49 H (5-40) units/L ALT 146 H 111 H (7-56) units/L Alkaline Phosphatase 221 H 164 H (35-129) units/L Albumin 3.5 L 2.8 L (3.9-5) g/dL Urine 01/29/ Range/Units 16:55 Urine Color Yellow (Yellow) Urine pH 5.0 (5.0-7.0) Ur Specific [place] 1.020 (1.003-1.030) Urine Protein >500 (Negative) mg/dL Urine Glucose (UA) 50 (Negative) mg/dL - Imaging and Cardiology EKG: report reviewed Chest x-ray: report reviewed (Improving RML pneumonia) Assessment and Plan Advance Directives: Yes (Full code) VTE prophylaxis?: Chemical Plan of care discussed with patient/family: Yes - Patient Problems (1) SIRS (systemic inflammatory response syndrome) Current Visit: No Status: Acute Plan to address problem: Given the High wbc count Lactic acidosis -i am in favor of SIRS.Patient has a improving RML pneumonia which maybe the source of infection.Urine was normal Broad spectrum abx initiated. (2) Acute exacerbation of CHF (congestive heart failure) Current Visit: Yes Status: Acute Qualifiers: Congestive heart failure type: combined Qualified Code(s): I50.43 - Acute on chronic combined systolic (congestive) and diastolic (congestive) heart failure Plan to address problem: With elevated BNP and bilateral pedal edema and exertional dyspnea -patient to be treated for CHF exacerbation.Echo ordered because of recent STEMI/Vfib.Lasix 40 q12 initiated.Cardiology consult requested (3) HTN (hypertension) Current Visit: Yes Status: Chronic Qualifiers: Hypertension type: essential hypertension Qualified Code(s): I10 - Essential (primary) hypertension Plan to address problem: Cont antihypertensives (4) IDDM (insulin dependent diabetes mellitus) Current Visit: Yes Status: Chronic Plan to address problem: Insulin resumed and adjusted (5) DVT prophylaxis Current Visit: No Status: Acute Plan to address problem: on Lovenox 40 mg sq qd
[2017-01-29] MEDS ORDERED: DULCOLAX PR PRN (19:11)
[2017-01-29] MEDS ORDERED: DILAUDID IV PRN (19:11)
[2017-01-29] MEDS ORDERED: ZOFRAN IV PRN (19:11)
[2017-01-29] MEDS ORDERED: MILK OF MAGNESIA PO PRN (19:11)
[2017-01-29] MEDS ORDERED: TYLENOL PO PRN (19:11)
[2017-01-29 19:20] LABS: Ketones Negative (Negative)
[2017-01-29] MEDS: K-DUR PO SCH (20:25)
[2017-01-29] MEDS: PEPCID PO SCH (20:25)
[2017-01-29] MEDS: COZAAR PO SCH (20:25)
[2017-01-29] MEDS ORDERED: APRESOLINE ONE (20:50)
[2017-01-29] MEDS: APRESOLINE IV PRN (21:20)
[2017-01-29] MEDS: LOPRESSOR PO SCH (23:05)
[2017-01-29] MEDS: ZOSYN/NS 4.5GM/100ML 4.5 GM/100 ML VIAL IV SCH (23:49)
[2017-01-30] MEDS: ZOSYN/NS 4.5GM/100ML 4.5 GM/100 ML VIAL IV SCH ×3 (05:29→21:40)
[2017-01-30] MEDS: APRESOLINE IV PRN (05:30)
[2017-01-30] MEDS: LASIX IV SCH (05:30)
[2017-01-30] MEDS ORDERED: VANCOMYCIN/NS 1 GM/250 ML 1 GM/250 ML BAG IV SCH (06:00)
[2017-01-30 06:21] LABS: Basophils % (Auto) 0.2 % (0.0-1.8); Eosinophils % (Auto) 1.6 % (0.0-4.3); Hematocrit 29.4 % (30.3-42.9); Hemoglobin 9.5 gm/dl (10.1-14.3); Mean Corpuscular HGB Conc 32 % (30-34); Mean Corpuscular Hemoglobin 30 pg (28-32); Mean Corpuscular Volume 92 fl (79-97); Platelet Count 299 K/mm3 (140-440); Red Blood Count 3.19 M/mm3 (3.65-5.03); White Blood Count 12.4 K/mm3 (4.5-11.0)
[2017-01-30 06:24] LABS: Red Cell Distribution Width 21.5 % (13.2-15.2)
[2017-01-30 06:37] LABS: Alanine Aminotransferase 111 units/L (7-56); Albumin 2.8 g/dL (3.9-5); Albumin/Globulin Ratio 1.4 %; Alkaline Phosphatase 164 units/L (35-129); Anion Gap 18 mmol/L; BUN/Creatinine Ratio 36.66; Blood Urea Nitrogen 33 mg/dL (7-17); Calcium 7.3 mg/dL (8.4-10.2); Carbon Dioxide 18 mmol/L (22-30); Chloride 111.4 mmol/L (98-107); Glucose 193 mg/dL (65-100); Sodium 142 mmol/L (137-145); Total Protein 4.8 g/dL (6.3-8.2)
[2017-01-30] MEDS: K-DUR PO SCH ×2 (09:05→20:25)
[2017-01-30] MEDS ORDERED: LOVENOX SUB-Q SCH (10:00)
[2017-01-30] MEDS ORDERED: DELTASONE PO SCH ×2 (10:00)
[2017-01-30] MEDS: COZAAR PO SCH (10:15)
[2017-01-30] MEDS: LOVENOX SUB-Q SCH (10:15)
[2017-01-30] MEDS: PEPCID PO SCH (10:16)
[2017-01-30] MEDS: LOPRESSOR PO SCH ×3 (10:16→20:25)
[2017-01-30] MEDS: PERCOCET 5/325 PO PRN ×2 (10:43→21:46)
--- NOTE | 2017-01-30 10:43 | Consultation ---
History of Present Illness Consult date: 01/30/17 Requesting physician: DEIRDRE LOWERY Consult reason: other (leg edema ) History of present illness: From recent Discharge summary on 01/09/17 The patient is a 46-year-old woman with history of insulin-dependent diabetes mellitus, hypertension, recent SAH and dyslipidemia who presented with DKA, AMS and NSTEMI with V. fib arrest requiring IV amiodarone suppression. she was intubated and subsequently extubated. she was treated with IV insulin drip for documented DKA without ketones documentation but she was acidotic on admission and pressors but subsequently weaned off and transferred to the medical floor. Patient has had multiple admissions in the hospital multiple times and near experience in multiple times. Who went home with ef 40%, pt states complaince with insulin but having leg swelling when standing or walking. pt states was trying to walk outside and would have some mild sob. pt called nephrology office for persistent swelling in the legs and was advised to come to er. pt has swelling in the legs and mild edema, pt was not sent home on lasix secondary to renal failure. pt compliance is an issue. pt denies any palpations, chest pain or syncope. Past History Past Medical History: diabetes, heart failure, hypertension, hyperlipidemia, stroke (sah) Past Surgical History: denies: No surgical history Social history: smoking, alcohol abuse Family history: hypertension Medications and Allergies Allergies Allergy/AdvReac Type Severity Reaction Status Date / Time No Known Allergies Allergy Verified 12/03/16 23:01 Home Medications Medication Instructions Recorded Confirmed Last Taken Type Metoprolol [Lopressor TAB] 25 mg PO BID #60 tablet 12/29/16 01/29/17 Unknown Rx predniSONE [Deltasone] 60 mg PO QDAY 30 Days 01/04/17 01/29/17 Unknown Rx Doxycycline [Vibramycin CAP] 100 mg PO Q12HR 10 Days 01/09/17 01/29/17 Unknown Rx Famotidine [Pepcid] 20 mg PO DAILY #30 tablet 01/09/17 01/29/17 Unknown Rx Insulin NPH/Regular [Novolin 70/30] 14 unit SQ BIDDIAB 30 Days 01/09/17 Unknown Rx Levofloxacin [Levaquin TAB] 500 mg PO Q24HR #10 tablet 01/09/17 01/29/17 Unknown Rx Losartan [Cozaar] 50 mg PO QDAY #30 tablet 01/09/17 01/29/17 Unknown Rx Active Meds: Active Medications Acetaminophen (Tylenol) 650 mg PO Q4H PRN PRN Reason: Pain MILD(1-3)/Fever >100.5/RODRIGUEZ Bisacodyl (Dulcolax) 10 mg VT QDAY PRN PRN Reason: Constipation unrelieved by MOM Enoxaparin Sodium (Lovenox) 40 mg SUB-Q QDAY@1000 [facility] Last Admin: 01/30/17 10:15 Dose: 40 mg Famotidine (Pepcid) 20 mg PO DAILY [facility] Last Admin: 01/30/17 10:16 Dose: 20 mg Furosemide (Lasix) 40 mg IV 0600,1800 [facility] Last Admin: 01/30/17 05:30 Dose: 40 mg Hydralazine HCl (Apresoline) 10 mg IV Q2H PRN PRN Reason: Blood Pressure Last Admin: 01/30/17 05:30 Dose: 10 mg Hydromorphone HCl (Dilaudid) 0.5 mg IV Q3H PRN PRN Reason: Pain , Severe (7-10) Vancomycin HCl 500 mg/ Sodium (Chloride) 100 mls @ 50 mls/hr IV Q12H [facility] Piperacillin Sod/Tazobactam Sod (Zosyn/Ns 4.5gm/100ml) 4.5 gm in 100 mls @ 200 mls/hr IV Q8HR [facility] PRN Reason: Protocol Last Admin: 01/30/17 05:29 Dose: 200 mls/hr Insulin Human Isoph/Insulin Regular (Novolin 70/30) 14 unit SUB-Q BIDDIAB [facility] Last Admin: 01/30/17 10:16 Dose: 14 unit Losartan Potassium (Cozaar) 50 mg PO QDAY [facility] Last Admin: 01/30/17 10:15 Dose: 50 mg Magnesium Hydroxide (Milk Of Magnesia) 30 ml PO Q4H PRN PRN Reason: Constipation Metoprolol Tartrate (Lopressor) 25 mg PO BID [facility] Last Admin: 01/30/17 10:16 Dose: 25 mg Ondansetron HCl (Zofran) 4 mg IV Q8H PRN PRN Reason: N/V unrelieved by Reglan Oxycodone/Acetaminophen (Percocet 5/325) 1 tab PO Q6H PRN PRN Reason: Pain, Moderate (4-6) Potassium Chloride (K-Dur) 20 meq PO Q12H [facility] Last Admin: 01/29/17 20:25 Dose: 20 meq Vancomycin HCl (Vancomycin Pharmacy To Dose) 1 each IV PKCONSULT [facility] PRN Reason: Protocol Zolpidem Tartrate (Ambien) 5 mg PO QHS PRN PRN Reason: Insomnia Review of Systems All systems: negative (as per hpi) Physical Examination Vital Signs Temp Pulse Resp BP Pulse Ox 98.5 F 114 H 18 161/106 100 01/29/17 10:01 01/29/17 10:01 01/29/17 10:01 01/29/17 10:01 01/29/17 10:01 General appearance: no acute distress, well-nourished HEENT: Positive: PERRL, Mucus Membranes Moist Neck: Positive: neck supple, trachea midline Cardiac: Positive: Reg Rate and Rhythm, S1/S2. Negative: Audible Murmur Lungs: Positive: clear to auscultation, Normal Breath Sounds Neuro: Positive: Grossly Intact Abdomen: Positive: Soft, Active Bowel Sounds. Negative: Tender, Distended Female genitourinary: deferred Skin: Positive: Clear Incision: Cardiac Cath Site Musculoskeletal: No Pain, Normal Range of Motion Extremities: Present: normal, edema, +1 Edema Results 01/30/17 05:53 01/30/17 05:53 Cardiac Enzymes 01/30/17 Range/Units 05:53 AST 49 H (5-40) units/L CBC 01/30/17 Range/Units 05:53 WBC 12.4 H (4.5-11.0) K/mm3 RBC 3.19 L (3.65-5.03) M/mm3 Hgb 9.5 L (10.1-14.3) gm/dl Hct 29.4 L (30.3-42.9) % Plt Count 299 (140-440) K/mm3 Lymph # 1.6 (1.2-5.4) K/mm3 [place] # 0.7 (0.0-0.8) K/mm3 Eos # 0.2 (0.0-0.4) K/mm3 Baso # 0.0 (0.0-0.1) K/mm3 Comprehensive Metabolic Panel 08/26/17 Range/Units 05:53 Sodium 142 (137-145) mmol/L Potassium 5.0 (3.6-5.0) mmol/L Chloride 111.4 H (98-107) mmol/L Carbon Dioxide 18 L (22-30) mmol/L BUN 33 H (7-17) mg/dL Creatinine 0.9 (0.7-1.2) mg/dL Glucose 193 H (65-100) mg/dL Calcium 7.3 L (8.4-10.2) mg/dL AST 49 H (5-40) units/L ALT 111 H (7-56) units/L Alkaline Phosphatase 164 H (35-129) units/L Total Protein 4.8 L (6.3-8.2) g/dL Albumin 2.8 L (3.9-5) g/dL - Imaging and Cardiology Echo: report reviewed (11/2016 ef 40-45%) EKG interpretations - Telemetry EKG Rhythm: Sinus Tachycardia (sinus tachycardia at 115) Assessment and Plan acute on chronic systolic heart failure acute on chronic renal insufficency dm-1 htn chol non compliance rec: monitor renal function, as pt on iv lasix, with history of renal failure, no marta or arb given history of renal failure, increase lopressor as hr is 115 and add hydralzine for better bp control.
[2017-01-30] MEDS: VANCOMYCIN VIAL 500 MG in NACL 0.9% 100 ML IV SCH ×2 (11:00→21:41)
--- NOTE | 2017-01-30 12:37 | Progress Note ---
Assessment and Plan Assessment and plan: The patient is a 46-year-old woman with history of insulin-dependent diabetes mellitus, hypertension, recent SAH and dyslipidemia who presented with DKA, AMS and NSTEMI with V. fib arrest requiring IV amiodarone suppression. she was intubated and subsequently extubated. she was treated with IV insulin drip for documented DKA without ketones documentation but she was acidotic on admission and pressors but subsequently weaned off and transferred to the medical floor. Patient has had multiple admissions in the hospital multiple times and near experience in multiple times. Who went home with ef 40%, pt states complaince with insulin but having leg swelling when standing or walking. pt states was trying to walk outside and would have some mild sob. pt called nephrology office for persistent swelling in the legs and was advised to come to er. pt has swelling in the legs and mild edema, pt was not sent home on lasix secondary to renal failure. pt compliance is an issue. pt denies any palpations, chest pain or syncope. Acute on chronic systolic heart failure * Cardiology input noted, Started on Lasix 40MG IV BID. monitor daily weight, I/ O fluid restriction * No PEDRO/ARB due to labile renal function, can be consdered outpatient and when patient demonstrates compliance DM * labile Blood glucose changes * monitor closely, agree with lower insulin dose considering reoccurring hypoglycemia * encourage PO intake prior to insulin administration HTN * Lopressor increased and hydralazin added. will monitor Persistent lactic acidosis * Stable Moderate protein calorie malnutrition * Reed Fixer CONSULT * Add Glucerna chronic anemia of chronic disease, s/p total 4 units PRBC last admission * STABLE Depression * No acute event * Psych consulted from last admission recommend outpatient mental health follow up. DVT/GI prophy PLAN DISCUSSED WITH PATIENT IN DETAIL ANTICIPATE DISCHARGE IN 2 DAYS. History Interval history: Patient seen and examined, remarkable appears more improved than when discharged. Except for noted B/L lower ext swelling which is mildy worse compared to prior. she reports complaince with most meds except one of the antibiotics but does not recall the name. She is also not sure if she has been taking the steroids. Hospitalist Physical - Constitutional Vitals: Temp Pulse Resp BP Pulse Ox 98.3 F 116 H 20 178/112 100 01/30/17 08:25 01/30/17 08:25 01/30/17 08:25 01/30/17 08:25 01/30/17 08:25 General appearance: Present: no acute distress, well-nourished - EENT Eyes: Present: PERRL, EOM intact ENT: hearing intact, clear oral mucosa - Neck Neck: Present: supple, normal ROM, masses or JVD - Respiratory Respiratory effort: normal Respiratory: bilateral: diminished - Cardiovascular Rhythm: regular Heart Sounds: Present: S1 & S2 - Extremities Extremities: no ischemia Extremity abnormal: edema (3+ BL) Peripheral Pulses: within normal limits - Abdominal General gastrointestinal: soft, non-tender, non-distended, normal bowel sounds - Integumentary Integumentary: Present: clear, warm - Psychiatric Psychiatric: appropriate mood/affect, intact judgment & insight - Neurologic Neurologic: CNII-XII intact, gait normal - Allied Health Allied health notes reviewed: nursing Results - Labs CBC & Chem 7: 01/30/17 05:53 01/30/17 05:53 Labs: Laboratory Last Values WBC 12.4 K/mm3 (4.5-11.0) H 01/30/17 05:53 RBC 3.19 M/mm3 (3.65-5.03) L 01/30/17 05:53 Hgb 9.5 gm/dl (10.1-14.3) L 01/30/17 05:53 Hct 29.4 % (30.3-42.9) L 01/30/17 05:53 MCV 92 fl (79-97) 01/30/17 05:53 MCH 30 pg (28-32) 01/30/17 05:53 MCHC 32 % (30-34) 01/30/17 05:53 RDW 21.5 % (13.2-15.2) H 01/30/17 05:53 Plt Count 299 K/mm3 (140-440) 01/30/17 05:53 Lymph % (Auto) 12.8 % (13.4-35.0) L 01/30/17 05:53 [place] % (Auto) 5.7 % (0.0-7.3) 01/30/17 05:53 Eos % (Auto) 1.6 % (0.0-4.3) 01/30/17 05:53 Baso % (Auto) 0.2 % (0.0-1.8) 01/30/17 05:53 Lymph # 1.6 K/mm3 (1.2-5.4) 01/30/17 05:53 [place] # 0.7 K/mm3 (0.0-0.8) 01/30/17 05:53 Eos # 0.2 K/mm3 (0.0-0.4) 01/30/17 05:53 Baso # 0.0 K/mm3 (0.0-0.1) 01/30/17 05:53 Seg Neutrophils % 79.7 % (40.0-70.0) H 01/30/17 05:53 Seg Neutrophils # 9.9 K/mm3 (1.8-7.7) H 01/30/17 05:53 PT 13.6 Sec. (12.2-14.9) 01/29/17 15:38 INR 1.05 (0.87-1.13) 01/29/17 15:38 APTT 23.0 Sec. (24.2-36.6) L 01/29/17 15:38 Sodium 142 mmol/L (137-145) 01/30/17 05:53 Potassium 5.0 mmol/L (3.6-5.0) 01/30/17 05:53 Chloride 111.4 mmol/L (98-107) H 01/30/17 05:53 Carbon Dioxide 18 mmol/L (22-30) L 01/30/17 05:53 Anion Gap 18 mmol/L 01/30/17 05:53 BUN 33 mg/dL (7-17) H 01/30/17 05:53 Creatinine 0.9 mg/dL (0.7-1.2) 01/30/17 05:53 Estimated GFR > 60 ml/min 01/30/17 05:53 BUN/Creatinine Ratio 36.66 % 01/30/17 05:53 Glucose 193 mg/dL (65-100) H 01/30/17 05:53 POC Glucose 272 (70-105) H 01/30/17 08:35 Hemoglobin A1c 8.1 % (4-6) H 01/29/17 10:18 Ketones Quantitative Negative (Negative) 01/29/17 15:38 Lactic Acid 3.90 mmol/L (0.7-2.0) H* 01/29/17 20:05 Calcium 7.3 mg/dL (8.4-10.2) L 01/30/17 05:53 Magnesium 2.30 mg/dL (1.7-2.3) 01/29/17 15:38 Total Bilirubin 0.40 mg/dL (0.1-1.2) 01/30/17 05:53 Direct Bilirubin < 0.2 mg/dL (0-0.2) 01/29/17 15:38 Indirect Bilirubin 0.3 mg/dL 01/29/17 15:38 AST 49 units/L (5-40) H 01/30/17 05:53 ALT 111 units/L (7-56) H 01/30/17 05:53 Alkaline Phosphatase 164 units/L (35-129) H 01/30/17 05:53 Ammonia 54.0 umol/L (25-60) 01/29/17 15:38 Total Creatine Kinase 39 units/L (30-135) 01/29/17 15:38 CK-MB (CK-2) 1.7 ng/mL (0.0-4.0) 01/29/17 15:38 CK-MB (CK-2) Rel Index 4.3 (0-4) H 01/29/17 15:38 Troponin T < 0.010 ng/mL (0.00-0.029) 01/29/17 15:38 NT-Pro-B Natriuret Pep 5205 pg/mL (0-450) H 01/29/17 15:38 Total Protein 4.8 g/dL (6.3-8.2) L 01/30/17 05:53 Albumin 2.8 g/dL (3.9-5) L 01/30/17 05:53 Albumin/Globulin Ratio 1.4 % 01/30/17 05:53 Urine Color Yellow (Yellow) 01/29/17 16:55 Urine Turbidity Clear (Clear) 01/29/17 16:55 Urine pH 5.0 (5.0-7.0) 01/29/17 16:55 Ur Specific [place] 1.020 (1.003-1.030) 01/29/17 16:55 Urine Protein >500 mg/dL (Negative) 01/29/17 16:55 Urine Glucose (UA) 50 mg/dL (Negative) 01/29/17 16:55 Urine Ketones Neg mg/dL (Negative) 01/29/17 16:55 Urine Blood Neg (Negative) 01/29/17 16:55 Urine Nitrite Neg (Negative) 01/29/17 16:55 Urine Bilirubin Neg (Negative) 01/29/17 16:55 Urine Urobilinogen < 2.0 mg/dL (<2.0) 01/29/17 16:55 Ur Leukocyte Esterase Neg (Negative) 01/29/17 16:55 Urine WBC (Auto) 2.0 /HPF (0.0-6.0) 01/29/17 16:55 Urine RBC (Auto) 6.0 /HPF (0.0-6.0) 01/29/17 16:55 U Epithel Cells (Auto) 8.0 /HPF (0-13.0) 01/29/17 16:55 Urine Mucus Few /HPF 01/29/17 16:55 - Imaging and Cardiology Chest x-ray: image reviewed (IMPROVING RIGHT LUNG INFILTRATE)
[2017-01-30] MEDS: APRESOLINE PO SCH ×2 (14:42→21:37)
[2017-01-30] MEDS: AMBIEN PO PRN (21:46)
[2017-01-31] MEDS: ZOSYN/NS 4.5GM/100ML 4.5 GM/100 ML VIAL IV SCH ×3 (05:57→22:58)
[2017-01-31] MEDS: LASIX IV SCH ×2 (05:57→18:35)
[2017-01-31] MEDS: APRESOLINE PO SCH (05:57)
[2017-01-31] MEDS: K-DUR PO SCH ×2 (08:22→20:45)
[2017-01-31] MEDS: PERCOCET 5/325 PO PRN ×3 (09:53→23:45)
[2017-01-31] MEDS: PEPCID PO SCH (09:53)
[2017-01-31] MEDS: COZAAR PO SCH (09:53)
[2017-01-31] MEDS: LOPRESSOR PO SCH ×3 (09:54→20:42)
--- NOTE | 2017-01-31 09:54 | Progress Note ---
Assessment and Plan acute on chronic systolic heart failure acute on chronic renal insufficency dm-1 htn chol sinus tachycardia non compliance rec: stop hydralzine and cont losartan and cont lopressor awaiting am labs, may consider picc. cont iv lasix ,pt output is not consistent with iv lasix Subjective Date of service: 01/31/17 Principal diagnosis: sob Interval history: pt staes sob is better but legs swollen Objective Vital Signs Temp Pulse Resp BP Pulse Ox 01/31/17 09:00 98.3 F 102 H 18 133/83 99 01/31/17 06:42 98.6 F 104 H 20 112/75 97 01/31/17 06:00 101 H 01/31/17 05:57 106 H 105/68 01/31/17 00:46 98.7 F 106 H 20 105/68 98 01/30/17 22:00 114 H 01/30/17 21:37 113 H 112/71 01/30/17 20:25 113 H 112/71 01/30/17 20:19 98.8 F 113 H 20 112/71 98 01/30/17 17:24 98.4 F 119 H 16 126/81 98 01/30/17 12:40 98.6 F 108 H 18 135/92 98 - Physical Examination General: No Apparent Distress HEENT: Positive: PERRL, Mucus Membranes Moist Neck: Positive: neck supple, trachea midline Cardiac: Positive: Tachycardia Lungs: Positive: clear to auscultation Neuro: Positive: Grossly Intact Abdomen: Positive: Soft, Active Bowel Sounds. Negative: Tender, Distended Skin: Positive: Clear Incision: Cardiac Cath Site Musculoskeletal: No Pain, Normal Range of Motion Extremities: Present: normal, edema, +1 Edema - Imaging and Cardiology EKG: report reviewed Echo: report reviewed (11/2016 ef 40-45%) - Telemetry EKG Rhythm: Sinus Tachycardia (at 113)
[2017-01-31] MEDS: LOVENOX SUB-Q SCH (10:15)
[2017-01-31] MEDS: VANCOMYCIN VIAL 500 MG in NACL 0.9% 100 ML IV SCH ×2 (10:22→20:42)
--- NOTE | 2017-01-31 11:53 | Vascular Lab Report ---
LOWER EXTREMITY VENOUS DUPLEX: REASON FOR EXAM: Swelling of the lower extremities. COMMENTS ON THE RIGHT: All veins visualized are freely compressible without evidence of internal echogenicity. Flow is spontaneous and phasic throughout. COMMENTS ON THE LEFT: All veins visualized are freely compressible without evidence of internal echogenicity. Flow is spontaneous and phasic throughout. IMPRESSION: No evidence of acute or chronic deep venous thrombosis in either lower extremity.
--- NOTE | 2017-01-31 12:15 | Progress Note ---
Assessment and Plan Assessment and plan: The patient is a 46-year-old woman with history of insulin-dependent diabetes mellitus, hypertension, recent SAH and dyslipidemia who presented with DKA, AMS and NSTEMI with V. fib arrest requiring IV amiodarone suppression. she was intubated and subsequently extubated. she was treated with IV insulin drip for documented DKA without ketones documentation but she was acidotic on admission and pressors but subsequently weaned off and transferred to the medical floor. Patient has had multiple admissions in the hospital multiple times and near experience in multiple times. Who went home with ef 40%, pt states complaince with insulin but having leg swelling when standing or walking. pt states was trying to walk outside and would have some mild sob. pt called nephrology office for persistent swelling in the legs and was advised to come to er. pt has swelling in the legs and mild edema, pt was not sent home on lasix secondary to renal failure. pt compliance is an issue. pt denies any palpations, chest pain or syncope. Acute on chronic systolic heart failure * Cardiology input noted, Change Lasix 20MG IV BID. monitor daily weight, I/O fluid restriction * No PEDRO/ARB due to labile renal function, can be consdered outpatient and when patient demonstrates compliance * Decrease lasix to 20mg IV bid DUE TO RENAL FUNCTION Acute on Chronic kidney disease with proteinuria * Neprhology consult DM * labile Blood glucose changes * monitor closely, agree with lower insulin dose considering reoccurring hypoglycemia * encourage PO intake prior to insulin administration * Add slidding scale coverage HTN * Lopressor increased and hydralazin added. will monitor Persistent lactic acidosis * Stable Moderate protein calorie malnutrition * Facility Maintenance Helper CONSULT * Add Glucerna chronic anemia of chronic disease, s/p total 4 units PRBC last admission * STABLE Depression * No acute event * Psych consulted from last admission recommend outpatient mental health follow up. DVT/GI prophy PLAN DISCUSSED WITH PATIENT IN DETAIL ANTICIPATE DISCHARGE IN 1 DAY. History Interval history: Patient seen and examined, CONTINUES TO IMPROVE. Hospitalist Physical - Physical exam Narrative exam: VITAL SIGNS: Reviewed. GENERAL: The patient appeared well nourished and normally developed. Vital signs as documented. HEAD: No signs of head trauma. EYES: Pupils are equal. Extraocular motions intact. EARS: Hearing grossly intact. MOUTH: Oropharynx is normal. NECK: No adenopathy, no JVD. CHEST: Chest with clear breath sounds bilaterally. No wheezes, rales, or rhonchi. CARDIAC: Regular rate and rhythm. S1 and S2, without murmurs, gallops, or rubs. VASCULAR: 2+ pitting edema. Peripheral pulses normal and equal in all extremities. ABDOMEN: Soft, without detectable tenderness. No sign of distention. No rebound or guarding, and no masses palpated. Bowel Sounds normal. MUSCULOSKELETAL: Good range of motion of all major joints. Extremities without clubbing, cyanosis. 2+ pitting edema NEUROLOGIC EXAM: Alert and oriented x 3. No focal sensory or strength deficits. Speech normal. Follows commands. PSYCHIATRIC: Mood normal. SKIN: No rash or lesions. - Constitutional Vitals: Temp Pulse Resp BP Pulse Ox 98.3 F 102 H 18 133/83 99 01/31/17 09:00 01/31/17 09:00 01/31/17 09:00 01/31/17 09:00 01/31/17 09:00 General appearance: Present: no acute distress, well-nourished Results - Labs CBC & Chem 7: 01/31/17 12:27 01/31/17 12:27 Labs: Laboratory Last Values WBC 12.4 K/mm3 (4.5-11.0) H 01/30/17 05:53 RBC 3.19 M/mm3 (3.65-5.03) L 01/30/17 05:53 Hgb 9.5 gm/dl (10.1-14.3) L 01/30/17 05:53 Hct 29.4 % (30.3-42.9) L 01/30/17 05:53 MCV 92 fl (79-97) 01/30/17 05:53 MCH 30 pg (28-32) 01/30/17 05:53 MCHC 32 % (30-34) 01/30/17 05:53 RDW 21.5 % (13.2-15.2) H 01/30/17 05:53 Plt Count 299 K/mm3 (140-440) 01/30/17 05:53 Lymph % (Auto) 12.8 % (13.4-35.0) L 01/30/17 05:53 [place] % (Auto) 5.7 % (0.0-7.3) 01/30/17 05:53 Eos % (Auto) 1.6 % (0.0-4.3) 01/30/17 05:53 Baso % (Auto) 0.2 % (0.0-1.8) 01/30/17 05:53 Lymph # 1.6 K/mm3 (1.2-5.4) 01/30/17 05:53 [place] # 0.7 K/mm3 (0.0-0.8) 01/30/17 05:53 Eos # 0.2 K/mm3 (0.0-0.4) 01/30/17 05:53 Baso # 0.0 K/mm3 (0.0-0.1) 01/30/17 05:53 Seg Neutrophils % 79.7 % (40.0-70.0) H 01/30/17 05:53 Seg Neutrophils # 9.9 K/mm3 (1.8-7.7) H 01/30/17 05:53 PT 13.6 Sec. (12.2-14.9) 01/29/17 15:38 INR 1.05 (0.87-1.13) 01/29/17 15:38 APTT 23.0 Sec. (24.2-36.6) L 01/29/17 15:38 Sodium 142 mmol/L (137-145) 01/30/17 05:53 Potassium 5.0 mmol/L (3.6-5.0) 01/30/17 05:53 Chloride 111.4 mmol/L (98-107) H 01/30/17 05:53 Carbon Dioxide 18 mmol/L (22-30) L 01/30/17 05:53 Anion Gap 18 mmol/L 01/30/17 05:53 BUN 33 mg/dL (7-17) H 01/30/17 05:53 Creatinine 0.9 mg/dL (0.7-1.2) 01/30/17 05:53 Estimated GFR > 60 ml/min 01/30/17 05:53 BUN/Creatinine Ratio 36.66 % 01/30/17 05:53 Glucose 193 mg/dL (65-100) H 01/30/17 05:53 POC Glucose 91 (70-105) 01/30/17 22:15 Hemoglobin A1c 8.1 % (4-6) H 01/29/17 10:18 Ketones Quantitative Negative (Negative) 01/29/17 15:38 Lactic Acid 3.90 mmol/L (0.7-2.0) H* 01/29/17 20:05 Calcium 7.3 mg/dL (8.4-10.2) L 01/30/17 05:53 Magnesium 2.30 mg/dL (1.7-2.3) 01/29/17 15:38 Total Bilirubin 0.40 mg/dL (0.1-1.2) 01/30/17 05:53 Direct Bilirubin < 0.2 mg/dL (0-0.2) 01/29/17 15:38 Indirect Bilirubin 0.3 mg/dL 01/29/17 15:38 AST 49 units/L (5-40) H 01/30/17 05:53 ALT 111 units/L (7-56) H 01/30/17 05:53 Alkaline Phosphatase 164 units/L (35-129) H 01/30/17 05:53 Ammonia 54.0 umol/L (25-60) 01/29/17 15:38 Total Creatine Kinase 39 units/L (30-135) 01/29/17 15:38 CK-MB (CK-2) 1.7 ng/mL (0.0-4.0) 01/29/17 15:38 CK-MB (CK-2) Rel Index 4.3 (0-4) H 01/29/17 15:38 Troponin T < 0.010 ng/mL (0.00-0.029) 01/29/17 15:38 NT-Pro-B Natriuret Pep 5205 pg/mL (0-450) H 01/29/17 15:38 Total Protein 4.8 g/dL (6.3-8.2) L 01/30/17 05:53 Albumin 2.8 g/dL (3.9-5) L 01/30/17 05:53 Albumin/Globulin Ratio 1.4 % 01/30/17 05:53 Urine Color Yellow (Yellow) 01/29/17 16:55 Urine Turbidity Clear (Clear) 01/29/17 16:55 Urine pH 5.0 (5.0-7.0) 01/29/17 16:55 Ur Specific [place] 1.020 (1.003-1.030) 01/29/17 16:55 Urine Protein >500 mg/dL (Negative) 01/29/17 16:55 Urine Glucose (UA) 50 mg/dL (Negative) 01/29/17 16:55 Urine Ketones Neg mg/dL (Negative) 01/29/17 16:55 Urine Blood Neg (Negative) 01/29/17 16:55 Urine Nitrite Neg (Negative) 01/29/17 16:55 Urine Bilirubin Neg (Negative) 01/29/17 16:55 Urine Urobilinogen < 2.0 mg/dL (<2.0) 01/29/17 16:55 Ur Leukocyte Esterase Neg (Negative) 01/29/17 16:55 Urine WBC (Auto) 2.0 /HPF (0.0-6.0) 01/29/17 16:55 Urine RBC (Auto) 6.0 /HPF (0.0-6.0) 01/29/17 16:55 U Epithel Cells (Auto) 8.0 /HPF (0-13.0) 01/29/17 16:55 Urine Mucus Few /HPF 01/29/17 16:55
[2017-01-31 12:50] LABS: Hematocrit 30.3 % (30.3-42.9); Hemoglobin 10.1 gm/dl (10.1-14.3); Mean Corpuscular HGB Conc 33 % (30-34); Mean Corpuscular Hemoglobin 30 pg (28-32); Mean Corpuscular Volume 91 fl (79-97); Platelet Count 285 K/mm3 (140-440); Red Blood Count 3.33 M/mm3 (3.65-5.03); White Blood Count 10.7 K/mm3 (4.5-11.0)
[2017-01-31 12:53] LABS: Red Cell Distribution Width 21.2 % (13.2-15.2)
[2017-01-31 13:09] LABS: BUN/Creatinine Ratio 28.46; Calcium 8.2 mg/dL (8.4-10.2); Chloride 99.3 mmol/L (98-107); Potassium 5.3 mmol/L (3.6-5.0)
[2017-01-31] MEDS: NOVOLOG SUB-Q SCH ×2 (17:14→22:00)
[2017-01-31] MEDS: AMBIEN PO PRN (22:56)
[2017-02-01] MEDS: LASIX IV SCH ×2 (06:32→17:20)
[2017-02-01] MEDS: ZOSYN/NS 4.5GM/100ML 4.5 GM/100 ML VIAL IV SCH ×3 (06:32→21:59)
[2017-02-01] MEDS: NOVOLOG SUB-Q SCH ×4 (09:27→22:42)
[2017-02-01] MEDS: LOVENOX SUB-Q SCH (09:28)
[2017-02-01] MEDS: COZAAR PO SCH (09:29)
[2017-02-01] MEDS: PEPCID PO SCH (09:29)
[2017-02-01] MEDS: LOPRESSOR PO SCH ×3 (09:29→20:25)
[2017-02-01] MEDS: K-DUR PO SCH (09:31)
[2017-02-01] MEDS: PERCOCET 5/325 PO PRN ×3 (09:46→22:45)
[2017-02-01] MEDS: VANCOMYCIN VIAL 500 MG in NACL 0.9% 100 ML IV SCH ×2 (09:48→20:25)
--- NOTE | 2017-02-01 10:25 | Progress Note ---
Assessment and Plan Assessment: acute on chronic systolic heart failure acute on chronic renal insufficency Hypoglycemia dm-1 htn chol sinus tachycardia non compliance Plan: Increase IV lasix to 40mg BID. Repeat BMP in AM. The patient has been seen in conjunction with Dr. Johnson who agrees with the assessment and plan of care. Subjective Date of service: 02/01/17 Principal diagnosis: sob Interval history: Pt ambulating around room, SOB improving, BLE edema persists. VSS. Objective Last Vital Signs Temp 98.4 F 02/01/17 09:00 Pulse 93 H 02/01/17 09:00 Resp 20 02/01/17 09:00 BP 154/89 02/01/17 09:00 Pulse Ox 99 02/01/17 09:00 - Physical Examination General: No Apparent Distress HEENT: Positive: PERRL, Mucus Membranes Moist Neck: Positive: neck supple, trachea midline Cardiac: Positive: Reg Rate and Rhythm, S1/S2 Lungs: Positive: clear to auscultation Neuro: Positive: Grossly Intact Abdomen: Positive: Soft, Active Bowel Sounds. Negative: Tender, Distended Skin: Positive: Clear Incision: Cardiac Cath Site Musculoskeletal: No Pain, Normal Range of Motion Extremities: Present: normal, edema, +2 Edema (BLE ) - Labs and Meds CBC 01/31/17 Range/Units 12:27 WBC 10.7 (4.5-11.0) K/mm3 RBC 3.33 L (3.65-5.03) M/mm3 Hgb 10.1 (10.1-14.3) gm/dl Hct 30.3 (30.3-42.9) % Plt Count 285 (140-440) K/mm3 Comprehensive Metabolic Panel 01/31/17 Range/Units 12:27 Sodium 137 (137-145) mmol/L Potassium 5.3 H (3.6-5.0) mmol/L Chloride 99.3 (98-107) mmol/L Carbon Dioxide 23 (22-30) mmol/L BUN 37 H (7-17) mg/dL Creatinine 1.3 H (0.7-1.2) mg/dL Glucose 244 H (65-100) mg/dL Calcium 8.2 L (8.4-10.2) mg/dL - Imaging and Cardiology EKG: report reviewed Echo: report reviewed (11/2016 ef 40-45%) - Telemetry EKG Rhythm: Sinus Rhythm
[2017-02-01 11:42] LABS: BUN/Creatinine Ratio 27.14; Calcium 8.3 mg/dL (8.4-10.2); Chloride 94.6 mmol/L (98-107); Potassium 5.5 mmol/L (3.6-5.0)
[2017-02-01] MEDS ORDERED: KIONEX PO ONE (11:46)
--- NOTE | 2017-02-01 12:21 | Consultation ---
History of Present Illness - Reason for Consult Consult date: 02/01/17 - History of Present Illness patient with h/o poorly controled DM who was recently admitted for severe renal failure, DKA and hyperkalemia, at that time she went into cardiac arrest, respiratory failure and severe renal failure requiring HD, patient's kidney function improved and HD was stopped, she was discharged on01/09 but came back last Wednesday due to worsening in SOB and leg swelling. renal consult was requested for CKD and diuretics management Past History Past Medical History: diabetes, heart failure, hypertension, hyperlipidemia, stroke (sah) Past Surgical History: denies: No surgical history Social history: smoking, alcohol abuse Family history: hypertension Medications and Allergies Allergies Allergy/AdvReac Type Severity Reaction Status Date / Time No Known Allergies Allergy Verified 12/03/16 23:01 Home Medications Medication Instructions Recorded Confirmed Last Taken Type Metoprolol [Lopressor TAB] 25 mg PO BID #60 tablet 12/29/16 01/29/17 Unknown Rx predniSONE [Deltasone] 60 mg PO QDAY 30 Days 01/04/17 01/29/17 Unknown Rx Doxycycline [Vibramycin CAP] 100 mg PO Q12HR 10 Days 01/09/17 01/29/17 Unknown Rx Famotidine [Pepcid] 20 mg PO DAILY #30 tablet 01/09/17 01/29/17 Unknown Rx Insulin NPH/Regular [Novolin 70/30] 14 unit SQ BIDDIAB 30 Days 01/09/17 Unknown Rx Levofloxacin [Levaquin TAB] 500 mg PO Q24HR #10 tablet 01/09/17 01/29/17 Unknown Rx Losartan [Cozaar] 50 mg PO QDAY #30 tablet 01/09/17 01/29/17 Unknown Rx Active Meds: Active Medications Acetaminophen (Tylenol) 650 mg PO Q4H PRN PRN Reason: Pain MILD(1-3)/Fever >100.5/RODRIGUEZ Bisacodyl (Dulcolax) 10 mg CA QDAY PRN PRN Reason: Constipation unrelieved by MOM Enoxaparin Sodium (Lovenox) 40 mg SUB-Q QDAY@1000 [facility] Last Admin: 02/01/17 09:28 Dose: Not Given Famotidine (Pepcid) 20 mg PO DAILY [facility] Last Admin: 02/01/17 09:29 Dose: Not Given Furosemide (Lasix) 40 mg IV 0600,1800 [facility] Hydralazine HCl (Apresoline) 10 mg IV Q2H PRN PRN Reason: Blood Pressure Last Admin: 01/30/17 05:30 Dose: 10 mg Hydromorphone HCl (Dilaudid) 0.5 mg IV Q3H PRN PRN Reason: Pain , Severe (7-10) Vancomycin HCl 500 mg/ Sodium (Chloride) 100 mls @ 50 mls/hr IV Q12H [facility] Last Admin: 02/01/17 09:48 Dose: 50 mls/hr Piperacillin Sod/Tazobactam Sod (Zosyn/Ns 4.5gm/100ml) 4.5 gm in 100 mls @ 200 mls/hr IV Q8HR [facility] PRN Reason: Protocol Last Admin: 02/01/17 06:32 Dose: 200 mls/hr Insulin Aspart (Novolog) 0 units SUB-Q ACHS [facility] PRN Reason: Protocol Last Admin: 02/01/17 09:27 Dose: 8 units Insulin Human Isoph/Insulin Regular (Novolin 70/30) 14 unit SUB-Q BIDDIAB [facility] Last Admin: 02/01/17 09:26 Dose: 14 unit Magnesium Hydroxide (Milk Of Magnesia) 30 ml PO Q4H PRN PRN Reason: Constipation Metoprolol Tartrate (Lopressor) 50 mg PO TID [facility] Last Admin: 02/01/17 09:29 Dose: 50 mg Ondansetron HCl (Zofran) 4 mg IV Q8H PRN PRN Reason: N/V unrelieved by Reglan Last Admin: 02/01/17 09:23 Dose: 4 mg Oxycodone/Acetaminophen (Percocet 5/325) 1 tab PO Q6H PRN PRN Reason: Pain, Moderate (4-6) Last Admin: 02/01/17 09:46 Dose: 1 tab Vancomycin HCl (Vancomycin Pharmacy To Dose) 1 each IV PKCONSULT [facility] PRN Reason: Protocol Zolpidem Tartrate (Ambien) 5 mg PO QHS PRN PRN Reason: Insomnia Last Admin: 01/31/17 22:56 Dose: 5 mg Review of Systems All systems: negative (SOB, swelling in BLE) Exam - Vital Signs Vital signs: Vital Signs Temp Pulse Resp BP Pulse Ox 98.5 F 114 H 18 161/106 100 08/25/17 10:01 01/29/17 10:01 01/29/17 10:01 01/29/17 10:01 01/29/17 10:01 - General Appearance General appearance: well-developed, well-nourished, appears stated age EENT: ATNC, PERRL, mucous membranes moist Neck: Present: neck supple Respiratory: Clear to Ascultation Heart: regular, S1S2 Gastrointestinal: Present: normoactive bowel sounds Integumentary: no rash, warm and dry Neurologic: no focal deficit, no asterixis, alert and oriented x3 Musculoskeletal: Present: other (1-2+ pitting edema in BLE) Psychiatric: mood/affect appropriate, cooperative Results - Lab Results 01/31/17 12:27 02/01/17 10:58 Most recent lab results Calcium 8.3 mg/dL (8.4-10.2) L 02/01/17 10:58 Magnesium 2.30 mg/dL (1.7-2.3) 01/29/17 15:38 Assessment and Plan Chronic kidney disease stage III due to DM and HTN noted to be rising since admission, will hold losartan for now will check protein to Cr ratio. proteinuria secondary to DM nephropathy renally dose meds strict I&O daily weights Lower ext edema cont current IV lasix Hyperkalemia will d/c kcl supplement holding losartan as above low K diet Hyponatremia fluid restriction ordered
[2017-02-01 13:55] LABS: Bilirubin,Urine NEG (Negative); Blood,Urine NEG (Negative); Ketones,Urine NEG (Negative); Leukocyte Esterase,Urine NEG (Negative); Nitrite,Urine NEG (Negative); RBC,Urine < 1.0 /HPF (0.0-6.0); Urobilinogen,Urine < 2.0 mg/dL (<2.0); WBC,Urine < 1.0 /HPF (0.0-6.0)
[2017-02-01] MEDS: AMBIEN PO PRN (21:57)
--- NOTE | 2017-02-01 22:45 | Progress Note ---
Assessment and Plan Assessment and plan: The patient is a 46-year-old woman with history of insulin-dependent diabetes mellitus, hypertension, recent SAH and dyslipidemia who presented with DKA, AMS and NSTEMI with V. fib arrest requiring IV amiodarone suppression. she was intubated and subsequently extubated. she was treated with IV insulin drip for documented DKA without ketones documentation but she was acidotic on admission and pressors but subsequently weaned off and transferred to the medical floor. Patient has had multiple admissions in the hospital multiple times and near experience in multiple times. Who went home with ef 40%, pt states complaince with insulin but having leg swelling when standing or walking. pt states was trying to walk outside and would have some mild sob. pt called nephrology office for persistent swelling in the legs and was advised to come to er. pt has swelling in the legs and mild edema, pt was not sent home on lasix secondary to renal failure. pt compliance is an issue. pt denies any palpations, chest pain or syncope. Acute on chronic systolic heart failure * Cardiology input noted, Lasix increased to 40MG IV BID. For better diuresis. monitor daily weight, I/O fluid restriction * No PEDRO/ARB due to labile renal function, can be considered outpatient and when patient demonstrates compliance * Nephrology input noted Acute on Chronic kidney disease with proteinuria * Neprhology consult * Protein creatnine ratio. * Discussed with Sole Filler. * hold ACEI * HOLD KCL DM * labile Blood glucose changes * monitor closely, agree with lower insulin dose considering reoccurring hypoglycemia * encourage PO intake prior to insulin administration * discontinue sliding scale coverage HTN * Lopressor increased and hydralazin added. will monitor Persistent lactic acidosis * Stable Lymhedema * Recommend Lymphedema therapy in outpatient. Moderate protein calorie malnutrition * Category Director CONSULT * Add Glucerna chronic anemia of chronic disease, s/p total 4 units PRBC last admission * STABLE Depression * No acute event * Psych consulted from last admission recommend outpatient mental health follow up. DVT/GI prophy PLAN DISCUSSED WITH PATIENT IN DETAIL ANTICIPATE DISCHARGE IN 1 DAY. History Interval history: Patient seen and examined, reports improvement. nursing reports low blood glucose. patient denies shortness of breath Hospitalist Physical - Physical exam Narrative exam: VITAL SIGNS: Reviewed. GENERAL: The patient appeared well nourished and normally developed. Vital signs as documented. HEAD: No signs of head trauma. EYES: Pupils are equal. Extraocular motions intact. EARS: Hearing grossly intact. MOUTH: Oropharynx is normal. NECK: No adenopathy, no JVD. CHEST: Chest with clear breath sounds bilaterally. No wheezes, rales, or rhonchi. CARDIAC: Regular rate and rhythm. S1 and S2, without murmurs, gallops, or rubs. VASCULAR: 2+ pitting edema. Peripheral pulses normal and equal in all extremities. ABDOMEN: Soft, without detectable tenderness. No sign of distention. No rebound or guarding, and no masses palpated. Bowel Sounds normal. MUSCULOSKELETAL: Good range of motion of all major joints. Extremities without clubbing, cyanosis. 2+ pitting edema NEUROLOGIC EXAM: Alert and oriented x 3. No focal sensory or strength deficits. Speech normal. Follows commands. PSYCHIATRIC: Mood normal. SKIN: No rash or lesions. - Constitutional Vitals: Temp Pulse Resp BP Pulse Ox 97.9 F 97 H 20 125/82 99 02/01/17 17:49 02/01/17 20:25 02/01/17 17:49 02/01/17 20:25 02/01/17 17:49 General appearance: Present: no acute distress, well-nourished Results - Labs CBC & Chem 7: 01/31/17 12:27 02/01/17 10:58 Labs: Laboratory Last Values WBC 10.7 K/mm3 (4.5-11.0) 01/31/17 12:27 RBC 3.33 M/mm3 (3.65-5.03) L 01/31/17 12:27 Hgb 10.1 gm/dl (10.1-14.3) 01/31/17 12:27 Hct 30.3 % (30.3-42.9) 01/31/17 12:27 MCV 91 fl (79-97) 01/31/17 12:27 MCH 30 pg (28-32) 01/31/17 12:27 MCHC 33 % (30-34) 01/31/17 12:27 RDW 21.2 % (13.2-15.2) H 01/31/17 12:27 Plt Count 285 K/mm3 (140-440) 01/31/17 12:27 Lymph % (Auto) 12.8 % (13.4-35.0) L 01/30/17 05:53 [place] % (Auto) 5.7 % (0.0-7.3) 01/30/17 05:53 Eos % (Auto) 1.6 % (0.0-4.3) 01/30/17 05:53 Baso % (Auto) 0.2 % (0.0-1.8) 01/30/17 05:53 Lymph # 1.6 K/mm3 (1.2-5.4) 01/30/17 05:53 [place] # 0.7 K/mm3 (0.0-0.8) 01/30/17 05:53 Eos # 0.2 K/mm3 (0.0-0.4) 01/30/17 05:53 Baso # 0.0 K/mm3 (0.0-0.1) 01/30/17 05:53 Seg Neutrophils % 79.7 % (40.0-70.0) H 01/30/17 05:53 Seg Neutrophils # 9.9 K/mm3 (1.8-7.7) H 01/30/17 05:53 PT 13.6 Sec. (12.2-14.9) 01/29/17 15:38 INR 1.05 (0.87-1.13) 01/29/17 15:38 APTT 23.0 Sec. (24.2-36.6) L 01/29/17 15:38 Sodium 132 mmol/L (137-145) L 02/01/17 10:58 Potassium 5.5 mmol/L (3.6-5.0) H 02/01/17 10:58 Chloride 94.6 mmol/L (98-107) L 02/01/17 10:58 Carbon Dioxide 21 mmol/L (22-30) L 02/01/17 10:58 Anion Gap 22 mmol/L 02/01/17 10:58 BUN 38 mg/dL (7-17) H 02/01/17 10:58 Creatinine 1.4 mg/dL (0.7-1.2) H 02/01/17 10:58 Estimated GFR 49 ml/min 02/01/17 10:58 BUN/Creatinine Ratio 27.14 % 02/01/17 10:58 Glucose 343 mg/dL (65-100) H 02/01/17 10:58 POC Glucose < 40 (70-105) L 02/01/17 21:05 Hemoglobin A1c 8.1 % (4-6) H 01/29/17 10:18 Ketones Quantitative Negative (Negative) 01/29/17 15:38 Lactic Acid 3.90 mmol/L (0.7-2.0) H* 01/29/17 20:05 Calcium 8.3 mg/dL (8.4-10.2) L 02/01/17 10:58 Magnesium 2.30 mg/dL (1.7-2.3) 01/29/17 15:38 Total Bilirubin 0.40 mg/dL (0.1-1.2) 01/30/17 05:53 Direct Bilirubin < 0.2 mg/dL (0-0.2) 01/29/17 15:38 Indirect Bilirubin 0.3 mg/dL 01/29/17 15:38 AST 49 units/L (5-40) H 01/30/17 05:53 ALT 111 units/L (7-56) H 01/30/17 05:53 Alkaline Phosphatase 164 units/L (35-129) H 01/30/17 05:53 Ammonia 54.0 umol/L (25-60) 01/29/17 15:38 Total Creatine Kinase 39 units/L (30-135) 01/29/17 15:38 CK-MB (CK-2) 1.7 ng/mL (0.0-4.0) 01/29/17 15:38 CK-MB (CK-2) Rel Index 4.3 (0-4) H 01/29/17 15:38 Troponin T < 0.010 ng/mL (0.00-0.029) 01/29/17 15:38 NT-Pro-B Natriuret Pep 5205 pg/mL (0-450) H 01/29/17 15:38 Total Protein 4.8 g/dL (6.3-8.2) L 01/30/17 05:53 Albumin 2.8 g/dL (3.9-5) L 01/30/17 05:53 Albumin/Globulin Ratio 1.4 % 01/30/17 05:53 Urine Color Straw (Yellow) 02/01/17 13:30 Urine Turbidity Clear (Clear) 02/01/17 13:30 Urine pH 7.0 (5.0-7.0) 02/01/17 13:30 Ur Specific [place] 1.011 (1.003-1.030) 02/01/17 13:30 Urine Protein 30 mg/dl mg/dL (Negative) 02/01/17 13:30 Urine Glucose (UA) 50 mg/dL (Negative) 02/01/17 13:30 Urine Ketones Neg mg/dL (Negative) 02/01/17 13:30 Urine Blood Neg (Negative) 02/01/17 13:30 Urine Nitrite Neg (Negative) 02/01/17 13:30 Urine Bilirubin Neg (Negative) 02/01/17 13:30 Urine Urobilinogen < 2.0 mg/dL (<2.0) 02/01/17 13:30 Ur Leukocyte Esterase Neg (Negative) 02/01/17 13:30 Urine WBC (Auto) < 1.0 /HPF (0.0-6.0) 02/01/17 13:30 Urine RBC (Auto) < 1.0 /HPF (0.0-6.0) 02/01/17 13:30 U Epithel Cells (Auto) 1.0 /HPF (0-13.0) 02/01/17 13:30 Urine Mucus Few /HPF 01/29/17 16:55 Urine Creatinine 21.8 mg/dL (0.1-20.0) H 02/01/17 13:30 Protein/Creatinin Ratio 2.43 02/01/17 13:30 Urine Total Protein 53 mg/dL (5-11.8) H 02/01/17 13:30
[2017-02-02] MEDS: PERCOCET 5/325 PO PRN ×3 (04:30→23:02)
[2017-02-02] MEDS: LASIX IV SCH ×3 (05:55→20:35)
[2017-02-02] MEDS: ZOSYN/NS 4.5GM/100ML 4.5 GM/100 ML VIAL IV SCH (05:56)
[2017-02-02 07:00] LABS: Basophils % (Auto) 0.5 % (0.0-1.8); Eosinophils % (Auto) 4.1 % (0.0-4.3); Hematocrit 26.9 % (30.3-42.9); Hemoglobin 8.6 gm/dl (10.1-14.3); Mean Corpuscular HGB Conc 32 % (30-34); Mean Corpuscular Hemoglobin 30 pg (28-32); Mean Corpuscular Volume 93 fl (79-97); Platelet Count 260 K/mm3 (140-440); White Blood Count 8.6 K/mm3 (4.5-11.0)
[2017-02-02 07:11] LABS: Red Cell Distribution Width 20.9 % (13.2-15.2)
[2017-02-02 07:12] LABS: BUN/Creatinine Ratio 24.37; Calcium 7.9 mg/dL (8.4-10.2); Chloride 97.2 mmol/L (98-107); Phosphorous 5.3 mg/dL (2.5-4.5); Potassium 5.2 mmol/L (3.6-5.0)
[2017-02-02] MEDS: LOPRESSOR PO SCH ×3 (08:01→20:41)
[2017-02-02] MEDS: LOVENOX SUB-Q SCH (09:24)
[2017-02-02] MEDS: PEPCID PO SCH (09:24)
--- NOTE | 2017-02-02 09:33 | Progress Note ---
Assessment and Plan Chronic kidney disease stage III due to DM and HTN Cr cont to rise, cont to be volume overloaded, cont current lasix dose for now, may decrease tomorrow Hgb is dropping, noted to have elevated BUN since admission, will check iron studies and fecal occult blood renally dose meds strict I&O daily weights Lower ext edema cont current IV lasix Hyperkalemia cont to hold losartan as above low K diet Hyponatremia fluid restriction ordered improving Subjective Date of service: 02/02/17 Principal diagnosis: sob Interval history: swelling cont to improve in BLE Objective - Vital Signs Vital signs: Vital Signs - 12hr 02/01/17 02/02/17 02/02/17 22:00 00:42 04:52 Temperature 98.9 F 98.7 F 99 F Pulse Rate 102 H 98 H 93 H Respiratory 20 20 20 Rate Blood Pressure 104/68 98/61 144/85 O2 Sat by Pulse 95 99 100 Oximetry 02/02/17 02/02/17 06:00 08:56 Temperature 97.7 F Pulse Rate 109 H 75 Respiratory 18 Rate Blood Pressure 167/99 O2 Sat by Pulse 96 Oximetry - General Appearance General appearance: well-developed, appears stated age EENT: ATNC, PERRL, mucous membranes moist Neck: no JVD, no carotid bruit Respiratory: Present: Clear to Ascultation. Absent: Rales, Ronchi Cardiology: regular, S1S2 Gastrointestinal: normoactive bowel sounds, no tenderness, no distended, no guarding Integumentary: no rash, warm and dry Neurologic: no focal deficit, no asterixis, alert and oriented x3 Musculoskeletal: other (2+ pitting edema in BLE) Psychiatric: mood/affect appropriate, cooperative - Lab 02/02/17 05:54 02/02/17 05:54 Most recent lab results Calcium 7.9 mg/dL (8.4-10.2) L 02/02/17 05:54 Phosphorus 5.30 mg/dL (2.5-4.5) H 02/02/17 05:54 Magnesium 2.30 mg/dL (1.7-2.3) 01/29/17 15:38 Urine Creatinine 21.8 mg/dL (0.1-20.0) H 02/01/17 13:30 Urine Total Protein 53 mg/dL (5-11.8) H 02/01/17 13:30
--- NOTE | 2017-02-02 10:37 | Progress Note ---
Assessment and Plan Assessment and plan: The patient is a 46-year-old woman with history of insulin-dependent diabetes mellitus, hypertension, recent SAH and dyslipidemia who presented with DKA, AMS and NSTEMI with V. fib arrest requiring IV amiodarone suppression. she was intubated and subsequently extubated. she was treated with IV insulin drip for documented DKA without ketones documentation but she was acidotic on admission and pressors but subsequently weaned off and transferred to the medical floor. Patient has had multiple admissions in the hospital multiple times and near experience in multiple times. Who went home with ef 40%, pt states complaince with insulin but having leg swelling when standing or walking. pt states was trying to walk outside and would have some mild sob. pt called nephrology office for persistent swelling in the legs and was advised to come to er. pt has swelling in the legs and mild edema, pt was not sent home on lasix secondary to renal failure. Pt compliance is an issue. pt denies any palpations, chest pain or syncope. Acute on chronic systolic heart failure * Cardiology input noted, Lasix CONTINUED AT 40MG IV BID. For better diuresis. monitor daily weight, I/O fluid restriction * No PEDRO/ARB due to labile renal function, can be considered outpatient and when patient demonstrates compliance * Nephrology input noted Acute on Chronic kidney disease with proteinuria * Nephrology consult- agrees with continued Lasix * Protein creatinine ratio. * hold ACEI * HOLD KCL DM * labile Blood glucose changes * monitor closely, agree with lower insulin dose considering reoccurring hypoglycemia * encourage PO intake prior to insulin administration * discontinued sliding scale coverage HTN * Lopressor increased and hydrazine added. will monitor Persistent lactic acidosis * Stable Lymhedema * Recommend Lymphedema therapy in outpatient. Moderate protein calorie malnutrition * Milliner Helper CONSULT * Add Glucerna Chronic anemia of chronic disease, s/p total 4 units PRBC last admission * STABLE Depression * No acute event * Psych consulted from last admission recommend outpatient mental health follow up. Hyperkalemia: * give kayaxlate DVT/GI prophy PLAN DISCUSSED WITH PATIENT IN DETAIL History Interval history: Patient seen and examined, reports improvement. nursing reports low blood glucose. patient denies shortness of breath Hospitalist Physical - Physical exam Narrative exam: VITAL SIGNS: Reviewed. GENERAL: The patient appeared well nourished and normally developed. Vital signs as documented. HEAD: No signs of head trauma. EYES: Pupils are equal. Extraocular motions intact. EARS: Hearing grossly intact. MOUTH: Oropharynx is normal. NECK: No adenopathy, no JVD. CHEST: Chest with clear breath sounds bilaterally. No wheezes, rales, or rhonchi. CARDIAC: Regular rate and rhythm. S1 and S2, without murmurs, gallops, or rubs. VASCULAR: 1+ pitting edema. Peripheral pulses normal and equal in all extremities. ABDOMEN: Soft, without detectable tenderness. No sign of distention. No rebound or guarding, and no masses palpated. Bowel Sounds normal. MUSCULOSKELETAL: Good range of motion of all major joints. Extremities without clubbing, cyanosis. 1+ pitting edema NEUROLOGIC EXAM: Alert and oriented x 3. No focal sensory or strength deficits. Speech normal. Follows commands. PSYCHIATRIC: Mood normal. SKIN: No rash or lesions. - Constitutional Vitals: Temp Pulse Resp BP Pulse Ox 97.7 F 75 18 167/99 96 02/02/17 08:56 02/02/17 08:56 02/02/17 08:56 02/02/17 08:56 02/02/17 08:56 General appearance: Present: no acute distress, well-nourished Results - Labs CBC & Chem 7: 02/02/17 05:54 02/02/17 05:54 Labs: Laboratory Last Values WBC 8.6 K/mm3 (4.5-11.0) 02/02/17 05:54 RBC 2.90 M/mm3 (3.65-5.03) L 02/02/17 05:54 Hgb 8.6 gm/dl (10.1-14.3) L 02/02/17 05:54 Hct 26.9 % (30.3-42.9) L 02/02/17 05:54 MCV 93 fl (79-97) 02/02/17 05:54 MCH 30 pg (28-32) 02/02/17 05:54 MCHC 32 % (30-34) 02/02/17 05:54 RDW 20.9 % (13.2-15.2) H 02/02/17 05:54 Plt Count 260 K/mm3 (140-440) 02/02/17 05:54 Lymph % (Auto) 17.7 % (13.4-35.0) 02/02/17 05:54 [place] % (Auto) 6.7 % (0.0-7.3) 02/02/17 05:54 Eos % (Auto) 4.1 % (0.0-4.3) 02/02/17 05:54 Baso % (Auto) 0.5 % (0.0-1.8) 02/02/17 05:54 Lymph # 1.5 K/mm3 (1.2-5.4) 02/02/17 05:54 [facility] # 0.6 K/mm3 (0.0-0.8) 02/02/17 05:54 Eos # 0.4 K/mm3 (0.0-0.4) 02/02/17 05:54 Baso # 0.0 K/mm3 (0.0-0.1) 02/02/17 05:54 Seg Neutrophils % 71.0 % (40.0-70.0) H 02/02/17 05:54 Seg Neutrophils # 6.1 K/mm3 (1.8-7.7) 02/02/17 05:54 PT 13.6 Sec. (12.2-14.9) 01/29/17 15:38 INR 1.05 (0.87-1.13) 01/29/17 15:38 APTT 23.0 Sec. (24.2-36.6) L 01/29/17 15:38 Sodium 137 mmol/L (137-145) 02/02/17 05:54 Potassium 5.2 mmol/L (3.6-5.0) H 02/02/17 05:54 Chloride 97.2 mmol/L (98-107) L 02/02/17 05:54 Carbon Dioxide 24 mmol/L (22-30) 02/02/17 05:54 Anion Gap 21 mmol/L 02/02/17 05:54 BUN 39 mg/dL (7-17) H 02/02/17 05:54 Creatinine 1.6 mg/dL (0.7-1.2) H 02/02/17 05:54 Estimated GFR 42 ml/min 02/02/17 05:54 BUN/Creatinine Ratio 24.37 % 02/02/17 05:54 Glucose 264 mg/dL (65-100) H 02/02/17 05:54 POC Glucose 153 (70-105) H 02/02/17 00:44 Hemoglobin A1c 8.1 % (4-6) H 01/29/17 10:18 Ketones Quantitative Negative (Negative) 01/29/17 15:38 Lactic Acid 3.90 mmol/L (0.7-2.0) H* 01/29/17 20:05 Calcium 7.9 mg/dL (8.4-10.2) L 02/02/17 05:54 Phosphorus 5.30 mg/dL (2.5-4.5) H 02/02/17 05:54 Magnesium 2.30 mg/dL (1.7-2.3) 01/29/17 15:38 Total Bilirubin 0.40 mg/dL (0.1-1.2) 01/30/17 05:53 Direct Bilirubin < 0.2 mg/dL (0-0.2) 01/29/17 15:38 Indirect Bilirubin 0.3 mg/dL 01/29/17 15:38 AST 49 units/L (5-40) H 01/30/17 05:53 ALT 111 units/L (7-56) H 01/30/17 05:53 Alkaline Phosphatase 164 units/L (35-129) H 01/30/17 05:53 Ammonia 54.0 umol/L (25-60) 01/29/17 15:38 Total Creatine Kinase 39 units/L (30-135) 01/29/17 15:38 CK-MB (CK-2) 1.7 ng/mL (0.0-4.0) 01/29/17 15:38 CK-MB (CK-2) Rel Index 4.3 (0-4) H 01/29/17 15:38 Troponin T < 0.010 ng/mL (0.00-0.029) 01/29/17 15:38 NT-Pro-B Natriuret Pep 5205 pg/mL (0-450) H 01/29/17 15:38 Total Protein 4.8 g/dL (6.3-8.2) L 01/30/17 05:53 Albumin 2.8 g/dL (3.9-5) L 01/30/17 05:53 Albumin/Globulin Ratio 1.4 % 01/30/17 05:53 Urine Color Straw (Yellow) 02/01/17 13:30 Urine Turbidity Clear (Clear) 02/01/17 13:30 Urine pH 7.0 (5.0-7.0) 02/01/17 13:30 Ur Specific [place] 1.011 (1.003-1.030) 02/01/17 13:30 Urine Protein 30 mg/dl mg/dL (Negative) 02/01/17 13:30 Urine Glucose (UA) 50 mg/dL (Negative) 02/01/17 13:30 Urine Ketones Neg mg/dL (Negative) 02/01/17 13:30 Urine Blood Neg (Negative) 02/01/17 13:30 Urine Nitrite Neg (Negative) 02/01/17 13:30 Urine Bilirubin Neg (Negative) 02/01/17 13:30 Urine Urobilinogen < 2.0 mg/dL (<2.0) 02/01/17 13:30 Ur Leukocyte Esterase Neg (Negative) 02/01/17 13:30 Urine WBC (Auto) < 1.0 /HPF (0.0-6.0) 02/01/17 13:30 Urine RBC (Auto) < 1.0 /HPF (0.0-6.0) 02/01/17 13:30 U Epithel Cells (Auto) 1.0 /HPF (0-13.0) 02/01/17 13:30 Urine Mucus Few /HPF 01/29/17 16:55 Urine Creatinine 21.8 mg/dL (0.1-20.0) H 02/01/17 13:30 Protein/Creatinin Ratio 2.43 02/01/17 13:30 Urine Total Protein 53 mg/dL (5-11.8) H 02/01/17 13:30
--- NOTE | 2017-02-02 11:50 | Progress Note ---
Assessment and Plan Assessment: acute on chronic systolic heart failure acute on chronic renal insufficency Hypoglycemia dm-1 htn chol sinus tachycardia non compliance Plan: Cont present cardiac regimen, including IV lasix 40mg BID. Repeat BMP in AM. The patient has been seen in conjunction with Dr. Johnson who agrees with the assessment and plan of care. Subjective Date of service: 02/02/17 Principal diagnosis: sob Interval history: Pt ambulating around room, SOB improving, BLE edema slightly improved. VSS. Objective Last Vital Signs Temp 97.7 F 02/02/17 08:56 Pulse 75 02/02/17 08:56 Resp 18 02/02/17 08:56 BP 167/99 02/02/17 08:56 Pulse Ox 96 02/02/17 08:56 - Physical Examination General: No Apparent Distress HEENT: Positive: PERRL, Mucus Membranes Moist Neck: Positive: neck supple Cardiac: Positive: Reg Rate and Rhythm, S1/S2 Lungs: Positive: clear to auscultation Neuro: Positive: Grossly Intact Abdomen: Positive: Soft, Active Bowel Sounds. Negative: Tender, Distended Skin: Positive: Clear Incision: Cardiac Cath Site Musculoskeletal: No Pain, Normal Range of Motion Extremities: Present: normal, edema, +2 Edema (BLE ) - Labs and Meds CBC 02/02/17 Range/Units 05:54 WBC 8.6 (4.5-11.0) K/mm3 RBC 2.90 L (3.65-5.03) M/mm3 Hgb 8.6 L (10.1-14.3) gm/dl Hct 26.9 L (30.3-42.9) % Plt Count 260 (140-440) K/mm3 Lymph # 1.5 (1.2-5.4) K/mm3 [place] # 0.6 (0.0-0.8) K/mm3 Eos # 0.4 (0.0-0.4) K/mm3 Baso # 0.0 (0.0-0.1) K/mm3 Comprehensive Metabolic Panel 02/02/17 Range/Units 05:54 Sodium 137 (137-145) mmol/L Potassium 5.2 H (3.6-5.0) mmol/L Chloride 97.2 L (98-107) mmol/L Carbon Dioxide 24 (22-30) mmol/L BUN 39 H (7-17) mg/dL Creatinine 1.6 H (0.7-1.2) mg/dL Glucose 264 H (65-100) mg/dL Calcium 7.9 L (8.4-10.2) mg/dL - Imaging and Cardiology EKG: report reviewed Echo: report reviewed (11/2016 ef 40-45%)
[2017-02-02] MEDS ORDERED: KIONEX PO ONE (14:56)
[2017-02-02] MEDS: AMBIEN PO PRN (23:02)
[2017-02-03] MEDS: PERCOCET 5/325 PO PRN ×2 (05:17→17:37)
[2017-02-03] MEDS: LASIX IV SCH ×2 (05:17→17:27)
[2017-02-03 05:40] LABS: Basophils % (Auto) 0.4 % (0.0-1.8); Eosinophils % (Auto) 4.3 % (0.0-4.3); Hematocrit 28.2 % (30.3-42.9); Hemoglobin 9.3 gm/dl (10.1-14.3); Mean Corpuscular HGB Conc 33 % (30-34); Mean Corpuscular Hemoglobin 30 pg (28-32); Mean Corpuscular Volume 91 fl (79-97); Platelet Count 259 K/mm3 (140-440); White Blood Count 7.9 K/mm3 (4.5-11.0)
[2017-02-03 05:41] LABS: Red Cell Distribution Width 20.3 % (13.2-15.2)
[2017-02-03 06:22] LABS: BUN/Creatinine Ratio 28.46; Calcium 8.2 mg/dL (8.4-10.2); Chloride 94.7 mmol/L (98-107); Phosphorous 4.7 mg/dL (2.5-4.5); Potassium 4.8 mmol/L (3.6-5.0)
[2017-02-03] MEDS: LOPRESSOR PO SCH ×3 (07:55→19:25)
[2017-02-03] MEDS: PEPCID PO SCH (09:19)
[2017-02-03] MEDS: LOVENOX SUB-Q SCH (09:19)
--- NOTE | 2017-02-03 10:31 | Progress Note ---
Assessment and Plan Assessment and plan: The patient is a 46-year-old woman with history of insulin-dependent diabetes mellitus, hypertension, recent SAH and dyslipidemia who presented with DKA, AMS and NSTEMI with V. fib arrest requiring IV amiodarone suppression. she was intubated and subsequently extubated. she was treated with IV insulin drip for documented DKA without ketones documentation but she was acidotic on admission and pressors but subsequently weaned off and transferred to the medical floor. Patient has had multiple admissions in the hospital multiple times and near experience in multiple times. Who went home with ef 40%, pt states complaince with insulin but having leg swelling when standing or walking. pt states was trying to walk outside and would have some mild sob. pt called nephrology office for persistent swelling in the legs and was advised to come to er. pt has swelling in the legs and mild edema, pt was not sent home on lasix secondary to renal failure. Pt compliance is an issue. pt denies any palpations, chest pain or syncope. Acute on chronic systolic heart failure * Cardiology input noted, Lasix CONTINUED AT 40MG IV BID. For better diuresis. monitor daily weight, I/O fluid restriction * No PEDRO/ARB due to CKD, Acute on Chronic kidney disease with proteinuria * Nephrology consult- agrees with continued Lasix * Protein creatinine ratio. * hold ACEI * HOLD KCL DM * labile Blood glucose changes * monitor closely, agree with lower insulin dose considering reoccurring hypoglycemia * encourage PO intake prior to insulin administration * discontinued sliding scale coverage HTN * Lopressor increased and hydrazine added. will monitor Persistent lactic acidosis * Stable Lymhedema * Recommend Lymphedema therapy in outpatient. Moderate protein calorie malnutrition * Director [employer] CONSULT * Add Glucerna Chronic anemia of chronic disease, s/p total 4 units PRBC last admission * STABLE Depression * No acute event * Psych consulted from last admission recommend outpatient mental health follow up. Hyperkalemia: * sp kayaxlate PLAN DISCUSSED WITH PATIENT IN DETAIL History Interval history: denies chest pain or sob, today, LE edema is improved Hospitalist Physical - Physical exam Narrative exam: General.: Appears well, no distress, nontoxic HEENT: Moist mucous membranes, extraocular muscles intact, no lymphadenopathy Neck: supple Cardiac: S1-S2 heard Lungs: clear to auscultation bilaterally Abdomen: soft , nontender, nondistended, bowel sounds positive Extremities: 1 plus bipedal edema Skin: no rash or lesions Neurologic: no gross focal deficits Psych: appropriate behavior, appropriate mood, corporative, judgment intact - Constitutional Vitals: Temp Pulse Resp BP Pulse Ox 97.9 F 101 H 18 138/86 100 02/03/17 08:26 02/03/17 10:00 02/03/17 08:26 02/03/17 08:26 02/03/17 08:26 General appearance: Present: no acute distress, well-nourished Results - Labs CBC & Chem 7: 02/04/17 05:34 02/04/17 05:34 Labs: Laboratory Last Values WBC 7.9 K/mm3 (4.5-11.0) 02/03/17 04:50 RBC 3.10 M/mm3 (3.65-5.03) L 02/03/17 04:50 Hgb 9.3 gm/dl (10.1-14.3) L 02/03/17 04:50 Hct 28.2 % (30.3-42.9) L 02/03/17 04:50 MCV 91 fl (79-97) 02/03/17 04:50 MCH 30 pg (28-32) 02/03/17 04:50 MCHC 33 % (30-34) 02/03/17 04:50 RDW 20.3 % (13.2-15.2) H 02/03/17 04:50 Plt Count 259 K/mm3 (140-440) 02/03/17 04:50 Lymph % (Auto) 18.9 % (13.4-35.0) 02/03/17 04:50 [place] % (Auto) 9.7 % (0.0-7.3) H 02/03/17 04:50 Eos % (Auto) 4.3 % (0.0-4.3) 02/03/17 04:50 Baso % (Auto) 0.4 % (0.0-1.8) 02/03/17 04:50 Lymph # 1.5 K/mm3 (1.2-5.4) 02/03/17 04:50 [place] # 0.8 K/mm3 (0.0-0.8) 02/03/17 04:50 Eos # 0.3 K/mm3 (0.0-0.4) 02/03/17 04:50 Baso # 0.0 K/mm3 (0.0-0.1) 02/03/17 04:50 Seg Neutrophils % 66.7 % (40.0-70.0) 02/03/17 04:50 Seg Neutrophils # 5.3 K/mm3 (1.8-7.7) 02/03/17 04:50 PT 13.6 Sec. (12.2-14.9) 01/29/17 15:38 INR 1.05 (0.87-1.13) 01/29/17 15:38 APTT 23.0 Sec. (24.2-36.6) L 01/29/17 15:38 Sodium 137 mmol/L (137-145) 02/03/17 04:50 Potassium 4.8 mmol/L (3.6-5.0) 02/03/17 04:50 Chloride 94.7 mmol/L (98-107) L 02/03/17 04:50 Carbon Dioxide 26 mmol/L (22-30) 02/03/17 04:50 Anion Gap 21 mmol/L 02/03/17 04:50 BUN 37 mg/dL (7-17) H 02/03/17 04:50 Creatinine 1.3 mg/dL (0.7-1.2) H 02/03/17 04:50 Estimated GFR 53 ml/min 02/03/17 04:50 BUN/Creatinine Ratio 28.46 % 02/03/17 04:50 Glucose 307 mg/dL (65-100) H 02/03/17 04:50 POC Glucose 130 (70-105) H 02/02/17 23:09 Hemoglobin A1c 8.1 % (4-6) H 01/29/17 10:18 Ketones Quantitative Negative (Negative) 01/29/17 15:38 Lactic Acid 3.90 mmol/L (0.7-2.0) H* 01/29/17 20:05 Calcium 8.2 mg/dL (8.4-10.2) L 02/03/17 04:50 Phosphorus 4.70 mg/dL (2.5-4.5) H 02/03/17 04:50 Magnesium 2.30 mg/dL (1.7-2.3) 01/29/17 15:38 Iron 17 ug/dL (37-170) L 02/03/17 04:50 TIBC 229 mcg/dL (250-450) L 02/03/17 04:50 Ferritin 66.9 ng/mL (13.0-400.0) 02/03/17 04:50 Total Bilirubin 0.40 mg/dL (0.1-1.2) 01/30/17 05:53 Direct Bilirubin < 0.2 mg/dL (0-0.2) 01/29/17 15:38 Indirect Bilirubin 0.3 mg/dL 01/29/17 15:38 AST 49 units/L (5-40) H 01/30/17 05:53 ALT 111 units/L (7-56) H 01/30/17 05:53 Alkaline Phosphatase 164 units/L (35-129) H 01/30/17 05:53 Ammonia 54.0 umol/L (25-60) 01/29/17 15:38 Total Creatine Kinase 39 units/L (30-135) 01/29/17 15:38 CK-MB (CK-2) 1.7 ng/mL (0.0-4.0) 01/29/17 15:38 CK-MB (CK-2) Rel Index 4.3 (0-4) H 01/29/17 15:38 Troponin T < 0.010 ng/mL (0.00-0.029) 01/29/17 15:38 NT-Pro-B Natriuret Pep 5205 pg/mL (0-450) H 01/29/17 15:38 Total Protein 4.8 g/dL (6.3-8.2) L 01/30/17 05:53 Albumin 2.8 g/dL (3.9-5) L 01/30/17 05:53 Albumin/Globulin Ratio 1.4 % 01/30/17 05:53 Urine Color Straw (Yellow) 02/01/17 13:30 Urine Turbidity Clear (Clear) 02/01/17 13:30 Urine pH 7.0 (5.0-7.0) 02/01/17 13:30 Ur Specific [place] 1.011 (1.003-1.030) 02/01/17 13:30 Urine Protein 30 mg/dl mg/dL (Negative) 02/01/17 13:30 Urine Glucose (UA) 50 mg/dL (Negative) 02/01/17 13:30 Urine Ketones Neg mg/dL (Negative) 02/01/17 13:30 Urine Blood Neg (Negative) 02/01/17 13:30 Urine Nitrite Neg (Negative) 02/01/17 13:30 Urine Bilirubin Neg (Negative) 02/01/17 13:30 Urine Urobilinogen < 2.0 mg/dL (<2.0) 02/01/17 13:30 Ur Leukocyte Esterase Neg (Negative) 02/01/17 13:30 Urine WBC (Auto) < 1.0 /HPF (0.0-6.0) 02/01/17 13:30 Urine RBC (Auto) < 1.0 /HPF (0.0-6.0) 02/01/17 13:30 U Epithel Cells (Auto) 1.0 /HPF (0-13.0) 02/01/17 13:30 Urine Mucus Few /HPF 01/29/17 16:55 Urine Creatinine 21.8 mg/dL (0.1-20.0) H 02/01/17 13:30 Protein/Creatinin Ratio 2.43 02/01/17 13:30 Urine Total Protein 53 mg/dL (5-11.8) H 02/01/17 13:30
--- NOTE | 2017-02-03 10:51 | Progress Note ---
Assessment and Plan Assessment: acute on chronic systolic heart failure acute on chronic renal insufficency Hypoglycemia dm-1 htn chol sinus tachycardia non compliance Plan: Cont present cardiac regimen, including IV lasix 40mg BID. Repeat BMP in AM. The patient has been seen in conjunction with Dr. Hong who agrees with the assessment and plan of care. Subjective Date of service: 02/03/17 Principal diagnosis: sob Interval history: Pt ambulating around room, SOB improving, BLE edema improving. VSS. Objective Last Vital Signs Temp 97.9 F 02/03/17 08:26 Pulse 101 H 02/03/17 10:00 Resp 18 02/03/17 08:26 BP 138/86 02/03/17 08:26 Pulse Ox 100 02/03/17 08:26 - Physical Examination General: No Apparent Distress HEENT: Positive: PERRL, Mucus Membranes Moist Neck: Positive: neck supple Cardiac: Positive: Reg Rate and Rhythm, S1/S2 Lungs: Positive: clear to auscultation Neuro: Positive: Grossly Intact Abdomen: Positive: Soft, Active Bowel Sounds. Negative: Tender, Distended Skin: Positive: Clear Incision: Cardiac Cath Site Musculoskeletal: No Pain, Normal Range of Motion Extremities: Present: normal, edema, +1 Edema (BLE ) - Labs and Meds CBC 02/03/17 Range/Units 04:50 WBC 7.9 (4.5-11.0) K/mm3 RBC 3.10 L (3.65-5.03) M/mm3 Hgb 9.3 L (10.1-14.3) gm/dl Hct 28.2 L (30.3-42.9) % Plt Count 259 (140-440) K/mm3 Lymph # 1.5 (1.2-5.4) K/mm3 [place] # 0.8 (0.0-0.8) K/mm3 Eos # 0.3 (0.0-0.4) K/mm3 Baso # 0.0 (0.0-0.1) K/mm3 Comprehensive Metabolic Panel 02/03/17 Range/Units 04:50 Sodium 137 (137-145) mmol/L Potassium 4.8 (3.6-5.0) mmol/L Chloride 94.7 L (98-107) mmol/L Carbon Dioxide 26 (22-30) mmol/L BUN 37 H (7-17) mg/dL Creatinine 1.3 H (0.7-1.2) mg/dL Glucose 307 H (65-100) mg/dL Calcium 8.2 L (8.4-10.2) mg/dL - Imaging and Cardiology EKG: report reviewed Echo: report reviewed (11/2016 ef 40-45%) - Telemetry EKG Rhythm: Sinus Rhythm
--- NOTE | 2017-02-03 15:09 | Progress Note ---
Assessment and Plan - Patient Problems (1) Acute on chronic systolic (congestive) heart failure Current Visit: Yes Status: Acute Plan to address problem: On Lasix 40 mg IV BID (2) Chronic kidney disease, stage III (moderate) Current Visit: No Status: Acute Plan to address problem: Chronic Kidney Disease secondary to Hypertensive Nephrosclerosis and Diabetic Nephropathy Serum creatinine today is 1.3, yesterday's serum creatinine is 1.6. On Lasix 40 mg IV BID Renally dose medications Strict I&O Obtain daily weights (3) IDDM (insulin dependent diabetes mellitus) Current Visit: Yes Status: Chronic Plan to address problem: On insulin as per Primary team (4) HTN (hypertension) Current Visit: Yes Status: Chronic Qualifiers: Hypertension type: essential hypertension Qualified Code(s): I10 - Essential (primary) hypertension Plan to address problem: Blood pressures are stable Subjective Date of service: 02/03/17 Principal diagnosis: sob Interval history: Patient seen sitting up in bed. States feeling better. Objective - Vital Signs Vital signs: Vital Signs - 12hr 02/03/17 02/03/17 02/03/17 05:17 05:25 06:17 Temperature 98 F Pulse Rate 89 Respiratory 20 20 20 Rate Blood Pressure 126/93 O2 Sat by Pulse 94 Oximetry 02/03/17 02/03/17 02/03/17 08:26 10:00 12:23 Temperature 97.9 F 98.0 F Pulse Rate 92 H 101 H 99 H Respiratory 18 18 Rate Blood Pressure 138/86 129/70 O2 Sat by Pulse 100 99 Oximetry - General Appearance General appearance: well-developed, appears stated age EENT: ATNC, PERRL, hearing intact, vision intact Neck: no JVD, supple Respiratory: Present: Decreased Breath Sounds Cardiology: tachycardia, S1S2 Gastrointestinal: normoactive bowel sounds Integumentary: warm and dry Neurologic: alert and oriented x3 Musculoskeletal: joint swelling, other (2+ edema to BLE) Psychiatric: cooperative - Lab 02/03/17 04:50 02/03/17 04:50 Most recent lab results Calcium 8.2 mg/dL (8.4-10.2) L 02/03/17 04:50 Phosphorus 4.70 mg/dL (2.5-4.5) H 02/03/17 04:50 Magnesium 2.30 mg/dL (1.7-2.3) 01/29/17 15:38 Urine Creatinine 21.8 mg/dL (0.1-20.0) H 02/01/17 13:30 Urine Total Protein 53 mg/dL (5-11.8) H 02/01/17 13:30
[2017-02-04] MEDS: PERCOCET 5/325 PO PRN (00:02)
[2017-02-04] MEDS: AMBIEN PO PRN (00:04)
[2017-02-04] MEDS: LASIX IV SCH (05:38)
[2017-02-04 06:10] LABS: Basophils % (Auto) 1.3 % (0.0-1.8); Eosinophils % (Auto) 3.8 % (0.0-4.3); Hematocrit 30.4 % (30.3-42.9); Mean Corpuscular HGB Conc 33 % (30-34); Mean Corpuscular Hemoglobin 30 pg (28-32); Mean Corpuscular Volume 90 fl (79-97); Platelet Count 280 K/mm3 (140-440); Red Blood Count 3.36 M/mm3 (3.65-5.03); Red Cell Distribution Width 19.8 % (13.2-15.2); White Blood Count 7.9 K/mm3 (4.5-11.0)
[2017-02-04 06:30] LABS: Calcium 8.7 mg/dL (8.4-10.2); Chloride 93.1 mmol/L (98-107); Phosphorous 3.6 mg/dL (2.5-4.5)
--- NOTE | 2017-02-04 09:39 | Progress Note ---
Assessment and Plan Chronic kidney disease stage III due to DM and HTN kidney function cont to improve will switch lasix to PO will sign off, patient to be followed in our office upon discharge renally dose meds strict I&O daily weights Lower ext edema improving Hyperkalemia cont to hold losartan as above low K diet Hyponatremia cont fluid restriction Subjective Date of service: 02/04/17 Principal diagnosis: sob Interval history: swelling in legs cont to improve Objective - Vital Signs Vital signs: Vital Signs - 12hr 02/04/17 02/04/17 02/04/17 00:06 04:23 09:33 Temperature 98.5 F 97.8 F 98.8 F Pulse Rate 99 H 95 H 97 H Respiratory 20 19 18 Rate Blood Pressure 129/79 129/76 139/88 O2 Sat by Pulse 98 98 97 Oximetry - General Appearance General appearance: well-developed, well-nourished EENT: ATNC, PERRL, mucous membranes moist Neck: no JVD, no carotid bruit Respiratory: Present: Clear to Ascultation. Absent: Rales, Ronchi Cardiology: regular, S1S2 Gastrointestinal: normoactive bowel sounds, no tenderness, no distended, no guarding Integumentary: no rash, warm and dry Neurologic: no focal deficit, no asterixis, alert and oriented x3 Musculoskeletal: other (no edema in BLE) Psychiatric: mood/affect appropriate, cooperative - Lab 02/04/17 05:34 02/04/17 05:34 Most recent lab results Calcium 8.7 mg/dL (8.4-10.2) 02/04/17 05:34 Phosphorus 3.60 mg/dL (2.5-4.5) D 02/04/17 05:34 Magnesium 2.30 mg/dL (1.7-2.3) 01/29/17 15:38 Urine Creatinine 21.8 mg/dL (0.1-20.0) H 02/01/17 13:30 Urine Total Protein 53 mg/dL (5-11.8) H 02/01/17 13:30
[2017-02-04] MEDS: LOVENOX SUB-Q SCH (09:54)
[2017-02-04] MEDS: LOPRESSOR PO SCH ×2 (09:54→14:10)
[2017-02-04] MEDS: PEPCID PO SCH (09:55)
--- NOTE | 2017-02-04 11:02 | Progress Note ---
Assessment and Plan Assessment: acute on chronic systolic heart failure - nearing/at euvolemia; admission wt 68.6kg and wt today is 58.5kg. acute on chronic renal insufficency Hypoglycemia - now with hyperglycemia dm-1 htn chol sinus tachycardia non compliance Plan: Agree with conversion of IV lasix to PO, 40mg BID. Cont BB. No ACEI/ARB at this time in setting of ASHELY on CKD. Currently stable cardiac status. Will see PRN. Recommend pt to follow up in our office with Jessie Estes NP, within 1-2 weeks of hospital discharge ([phone]). The patient has been seen in conjunction with Dr. Hong who agrees with the assessment and plan of care. Subjective Date of service: 02/04/17 Principal diagnosis: sob Interval history: Pt resting in bed, SOB improving, BLE edema nearly resolved. VSS. Objective Last Vital Signs Temp 98.8 F 02/04/17 09:33 Pulse 97 H 02/04/17 09:54 Resp 18 02/04/17 09:33 BP 139/78 02/04/17 09:54 Pulse Ox 97 02/04/17 09:33 - Physical Examination General: No Apparent Distress HEENT: Positive: PERRL, Mucus Membranes Moist Neck: Positive: neck supple Cardiac: Positive: Reg Rate and Rhythm, S1/S2 Lungs: Positive: clear to auscultation Neuro: Positive: Grossly Intact Abdomen: Positive: Soft, Active Bowel Sounds. Negative: Tender, Distended Skin: Positive: Clear Incision: Cardiac Cath Site Musculoskeletal: No Pain, Normal Range of Motion Extremities: Present: normal, edema (trace BLE) - Labs and Meds CBC 02/04/17 Range/Units 05:34 WBC 7.9 (4.5-11.0) K/mm3 RBC 3.36 L (3.65-5.03) M/mm3 Hgb 10.0 L (10.1-14.3) gm/dl Hct 30.4 (30.3-42.9) % Plt Count 280 (140-440) K/mm3 Lymph # 1.8 (1.2-5.4) K/mm3 [place] # 0.8 (0.0-0.8) K/mm3 Eos # 0.3 (0.0-0.4) K/mm3 Baso # 0.1 (0.0-0.1) K/mm3 Comprehensive Metabolic Panel 02/04/17 Range/Units 05:34 Sodium 132 L (137-145) mmol/L Potassium 5.0 (3.6-5.0) mmol/L Chloride 93.1 L (98-107) mmol/L Carbon Dioxide 26 (22-30) mmol/L BUN 36 H (7-17) mg/dL Creatinine 1.2 (0.7-1.2) mg/dL Glucose 333 H (65-100) mg/dL Calcium 8.7 (8.4-10.2) mg/dL - Imaging and Cardiology EKG: report reviewed Echo: report reviewed (11/2016 ef 40-45%)
--- NOTE | 2017-02-04 14:07 | Discharge Summary ---
Providers - Providers Date of Admission: 01/29/17 19:11 Attending physician: BOUCHRA SHERIFF MD 01/31/17 15:02 Consult to Physician [CONS] Routine Consulting Provider: ARMANDO MITCHELL Reason For Exam: NEPHROTIC SYNDROME Place consult to:: Dr. Mitchell Notified:: Dylan HINDS Phone number called:: Was contact made?: Yes If yes, spoke with:: Dr. Smart Time called:: 16:31 02/01/17 11:16 Consult to Wound/ET Nurse [CONS] Routine Reason For Exam: wound eval Primary care physician: [employer] Hospitalization Condition: Stable Hospital course: The patient is a 46-year-old woman with history of insulin-dependent diabetes mellitus, hypertension, recent SAH and dyslipidemia who was recently rx in hospital for DKA, AMS and NSTEMI with V. fib arrest requiring IV amiodarone suppression. she was intubated and subsequently extubated. Patient has had multiple admissions in the hospital multiple times and near experience in multiple times. Who went home with ef 40%, pt states complaince with insulin but having leg swelling when standing or walking. pt states was trying to walk outside and would have some mild sob. pt called nephrology office for persistent swelling in the legs and was advised to come to er. pt has swelling in the legs and mild edema, she had not been on diuretics due to CKD She presented to the hospital with shortness of breath, anasarca, she was seen in conjunction with cardiology she was noted to have decreased EF. Her cardiac medications optimized, she was diuresed, she was also managing conjunction with nephrology. She was diureses and she clinically improved. She was treated with insulin while she was in hospital for treatment of her diabetes. PEDRO inhibitor and arm were avoided in this patient due to hyperkalemia, she did receive 1 dose of Kayexalate for elevated potassium. She clinically improved, had kidney function was stable and lower extremity edema and dyspnea are much improved at time of discharge. She is to follow-up with cardiology and nephrology as an outpatient. Next Discharge diagnoses Acute exacerbation of chronic systolic CHF Acute on chronic kidney disease Vasomotor nephropathy Type 2 diabetes, insulin-dependent Hypertension Lymphedema Moderate protein calorie malnutrition Anemia of chronic disease Hyperkalemia Depression Disposition: DC-01 TO HOME OR SELFCARE Time spent for discharge: 33 minutes Core Measure Documentation - Palliative Care Palliative Care/ Comfort Measures: Not Applicable - Core Measures Any of the following diagnoses?: heart failure - Heart Failure Discharge Requirements PEDRO/ARB for LVSD if EF <40%: No Reason for no PEDRO/ARB: Hyperkalemia Beta zoila at discharge: Yes Exam - Physical Exam Narrative exam: General.: Appears well, no distress, nontoxic HEENT: Moist mucous membranes, extraocular muscles intact, no lymphadenopathy Neck: supple Cardiac: S1-S2 heard Lungs: clear to auscultation bilaterally Abdomen: soft , nontender, nondistended, bowel sounds positive Extremities: 1 plus bipedal edema Skin: no rash or lesions Neurologic: no gross focal deficits Psych: appropriate behavior, appropriate mood, corporative, judgment intact - Constitutional Vitals: Temp Pulse Resp BP Pulse Ox 98.6 F 102 H 18 137/90 97 02/04/17 12:56 02/04/17 12:56 02/04/17 12:56 02/04/17 12:56 02/04/17 12:56 Plan Special Instructions: restrict fluid intake to (1 Liter per day) Follow up with: PRIMARY CAREMD [Primary Care Provider] - 3-5 Days ARMANDO MITCHELL MD [Staff Physician] - 7 Days ZUHAIR WHITTAKER MD [Staff Physician] - 7 Days Prescriptions: Famotidine [Pepcid] 20 mg PO DAILY #30 tablet Furosemide [Lasix TAB] 40 mg PO 0600,1800 #60 tablet Insulin NPH/Regular [NovoLIN 70/30] 18 unit SQ BIDDIAB #1 vial Metoprolol [Lopressor TAB] 50 mg PO TID #90 tablet
[2017-02-04] MEDS ORDERED: NOVOLOG SUB-Q ONE (15:00)
[2017-02-04 17:21] VITALS: BP 122/90
[2017-02-04] MEDS ORDERED: LASIX PO SCH (18:00)
== END 2017-02-04 19:30 | disposition home health service (06) | DRG 682 ==
LOC: ED 09:54 → 4A 19:11
PROVIDERS: ADMIT Internal Medicine; ATTEND Internal Medicine
DX: N17.0 Acute kidney failure with tubular necrosis (principal); J18.1 Lobar pneumonia, unspecified organism; I50.43 Acute on chronic combined systolic (congestive) and diastolic (congestive) heart failure; I13.0 Hypertensive heart and chronic kidney disease with heart failure and stage 1 through stage 4 chronic kidney disease, or unspecified chronic kidney disease; R65.10 Systemic inflammatory response syndrome (SIRS) of non-infectious origin without acute organ dysfunction; E44.0 Moderate protein-calorie malnutrition; E87.1 Hypo-osmolality and hyponatremia; I42.9 Cardiomyopathy, unspecified; K21.9 Gastro-esophageal reflux disease without esophagitis; F10.10 Alcohol abuse, uncomplicated; F17.200 Nicotine dependence, unspecified, uncomplicated; D63.8 Anemia in other chronic diseases classified elsewhere; F32.9 Major depressive disorder, single episode, unspecified; I49.5 Sick sinus syndrome; E10.649 Type 1 diabetes mellitus with hypoglycemia without coma; E87.5 Hyperkalemia; N18.3 Chronic kidney disease, stage 3 (moderate); E10.22 Type 1 diabetes mellitus with diabetic chronic kidney disease; E10.21 Type 1 diabetes mellitus with diabetic nephropathy; Z86.73 Personal history of transient ischemic attack (TIA), and cerebral infarction without residual deficits; Z82.49 Family history of ischemic heart disease and other diseases of the circulatory system; Z91.19 Patient's noncompliance with other medical treatment and regimen; Z68.24 Body mass index [BMI] 24.0-24.9, adult
CPT/HCPCS: 36415; 71020; 80048; 80053; 80074; 81001; 82010; 82140; 82270; 82550; 82553; 82570; 82728; 82962; 83036; 83550; 83735; 83880; 84100; 84156; 84484; 85025; 85027; 85610; 85730; 87040; 87086; 93005; 93010; 93970; 96365; 96375; 96376; J0360; J1650; J1815; J1940; J1956; J2405; J2543; J3370; J7030; J7040

== ENCOUNTER 2017-04-24 11:59 | Emergency (ER) | payer SELFPAY ==
--- NOTE | 2017-04-24 13:10 | Emergency Department Report ---
HPI - General Chief Complaint: Hypoglycemia Time Seen by Provider: 04/24/17 12:56 - HPI HPI: Room 7 The patient is a 47-year-old female presented with a chief complaint of hypoglycemia. The patient has a history of diabetes and takes Novolin 70/30 for control. The patient states she took her normal 170 3014 units this morning at 07:00 and at the same time a 2 bowls of cereal. Patient states she was in her usual state of health and decided to lay down and then awakened with EMS around her. The patient apparently had been found only arousable to painful stimuli and Accu-Chek revealed she was hypoglycemic at 13. Patient was given D50 crackers and juice blood sugar improved to 22 the patient is awake and alert and oriented. Patient now complains of feeling chilly and hungry but otherwise is asymptomatic. Patient denies taking oral hypoglycemics. Patient states there is been no recent change in her insulin dosages. Location: Mental state, blood sugar Duration: [See above] Quality: Hypoglycemic Severity: 13 Modifying factors: [see above] Context: [see above] Mode of transportation: [not driving] ED Past Medical Hx - Past Medical History Hx Hypertension: Yes Hx Heart Attack/AMI: Yes (STEMI on arrival to ER, VFIB and Amiodarone used, converted and stable now) Hx Diabetes: Yes Hx GERD: Yes - Family History Family history: no significant - Social History Smoking Status: Never Smoker Substance Use Type: None - Medications Home Medications: Home Medications Medication Instructions Recorded Confirmed Last Taken Type Metoprolol [Lopressor TAB] 25 mg PO BID #60 tablet 12/29/16 01/29/17 Unknown Rx Famotidine [Pepcid] 20 mg PO DAILY #30 tablet 02/04/17 Unknown Rx Furosemide [Lasix TAB] 40 mg PO 0600,1800 #60 tablet 02/04/17 Unknown Rx Insulin NPH/Regular [NovoLIN 70/30] 18 unit SQ BIDDIAB #1 vial 02/04/17 Unknown Rx Metoprolol [Lopressor TAB] 50 mg PO TID #90 tablet 02/04/17 Unknown Rx ED Review of Systems ROS: Stated complaint: HYPOGLYCEMIC Other details as noted in HPI Comment: All other systems reviewed and negative Constitutional: denies: chills, fever Eyes: denies: eye pain, eye discharge, vision change ENT: denies: ear pain, throat pain Respiratory: denies: cough, shortness of breath, wheezing Cardiovascular: denies: chest pain, palpitations Endocrine: other (hypoglycemia) Gastrointestinal: denies: abdominal pain, nausea, diarrhea Genitourinary: denies: urgency, dysuria, discharge Musculoskeletal: denies: back pain, joint swelling, arthralgia Skin: denies: rash, lesions Neurological: confusion. denies: headache, weakness, paresthesias Psychiatric: denies: anxiety, depression Hematological/Lymphatic: denies: easy bleeding, easy bruising Physical Exam - Physical Exam Physical Exam: GENERAL: The patient is well-developed well-nourished female sitting on stretcher eating food not appearing to be in acute distress. [] HEENT: Normocephalic. Atraumatic. Extraocular motions are intact. Patient has moist mucous membranes. NECK: Supple. Trachea midline CHEST/LUNGS: Clear to auscultation. There is no respiratory distress noted. HEART/CARDIOVASCULAR: Regular. There is no tachycardia. There is no gallop rub or murmur. ABDOMEN: Abdomen is soft, nontender. Patient has normal bowel sounds. There is no abdominal distention. SKIN: There is no rash. There is no edema. There is no diaphoresis. NEURO: The patient is awake, alert, and oriented. The patient is cooperative. The patient has normal speech MUSCULOSKELETAL: There is no evidence of acute injury. ED Medical Decision Making - Lab Data Result diagrams: 04/24/17 13:06 04/24/17 13:06 Laboratory Tests 04/24/17 04/24/17 04/24/17 12:34 13:06 13:06 WBC 7.0 RBC 3.78 Hgb 10.2 Hct 32.3 MCV 86 MCH 27 L MCHC 32 RDW 17.9 H Plt Count 403 Lymph % (Auto) 20.1 [place] % (Auto) 7.0 Eos % (Auto) 2.6 Baso % (Auto) 0.8 Lymph # 1.4 [place] # 0.5 Eos # 0.2 Baso # 0.1 Seg Neutrophils % 69.5 Seg Neutrophils # 4.8 Sodium 140 Potassium 4.6 Chloride 105.2 Carbon Dioxide 23 Anion Gap 16 BUN 26 H Creatinine 1.2 Estimated GFR 58 BUN/Creatinine Ratio 22 Glucose 44 L POC Glucose 150 H Calcium 9.1 Total Bilirubin 0.20 AST 41 H ALT 41 Alkaline Phosphatase 216 H Total Protein 6.1 L Albumin 3.7 L Albumin/Globulin Ratio 1.5 04/24/17 04/24/17 14:12 14:57 WBC RBC Hgb Hct MCV MCH MCHC RDW Plt Count Lymph % (Auto) [place] % (Auto) Eos % (Auto) Baso % (Auto) Lymph # [place] # Eos # Baso # Seg Neutrophils % Seg Neutrophils # Sodium Potassium Chloride Carbon Dioxide Anion Gap BUN Creatinine Estimated GFR BUN/Creatinine Ratio Glucose POC Glucose 110 H 90 Calcium Total Bilirubin AST ALT Alkaline Phosphatase Total Protein Albumin Albumin/Globulin Ratio Accu-Chek at 15:33 90 - Differential Diagnosis hypoglycemia Critical care attestation.: If time is entered above; I have spent that time in minutes in the direct care of this critically ill patient, excluding procedure time. ED Disposition Clinical Impression: Hypoglycemia Disposition: DC-01 TO HOME OR SELFCARE Is pt being admited?: No Does the pt Need Aspirin: No Condition: Stable Instructions: Diabetic Hypoglycemia (ED) Additional Instructions: Return to the emergency department immediately should you develop worsening symptoms, fever, inability to tolerate food or liquid or any other concerns. Referrals: RYAN COBIAN MD [Staff Physician] - [facility] (Dr. Cobian is a primary physician. Please follow up with him or the [place] [facility] to be established as a patient) [facility] [Outside] - [facility] Time of Disposition: 15:34
[2017-04-24 13:46] LABS: Basophils % (Auto) 0.8 % (0.0-1.8); Eosinophils % (Auto) 2.6 % (0.0-4.3); Hematocrit 32.3 % (30.3-42.9); Hemoglobin 10.2 gm/dl (10.1-14.3); Mean Corpuscular HGB Conc 32 % (30-34); Mean Corpuscular Hemoglobin 27 pg (28-32); Mean Corpuscular Volume 86 fl (79-97); Platelet Count 403 K/mm3 (140-440); Red Blood Count 3.78 M/mm3 (3.65-5.03); Red Cell Distribution Width 17.9 % (13.2-15.2)
[2017-04-24 14:00] LABS: Albumin 3.7 g/dL (3.9-5); Albumin/Globulin Ratio 1.5 %; Bilirubin,Total 0.2 mg/dL (0.1-1.2); Calcium 9.1 mg/dL (8.4-10.2); Chloride 105.2 mmol/L (98-107); Potassium 4.6 mmol/L (3.6-5.0); Total Protein 6.1 g/dL (6.3-8.2)
[2017-04-24 15:59] VITALS: BP 151/101
== END 2017-04-24 16:00 | disposition home or self-care (01) ==
LOC: ED 11:59
DX: E11.649 Type 2 diabetes mellitus with hypoglycemia without coma (principal); I10 Essential (primary) hypertension; K21.9 Gastro-esophageal reflux disease without esophagitis; I25.2 Old myocardial infarction
CPT/HCPCS: 36415; 80053; 82962; 85025; 99283

== ENCOUNTER 2018-08-01 15:51 | Inpatient (IN) | payer MEDICAID, OTHER ==
[2018-08-01] MEDS ORDERED: NACL 0.9% 1000 ML 2,000 ML IV ONE (16:13)
[2018-08-01] MEDS ORDERED: HumuLIN R IV ONE (16:14)
--- NOTE | 2018-08-01 16:35 | Emergency Department Report ---
ED Altered Mental Status HPI - General Chief Complaint: Hyperglycemia Stated Complaint: HIGH BLOOD SUGAR Time Seen by Provider: 08/01/18 16:12 Source: EMS Mode of arrival: Stretcher Limitations: Altered Mental Status - History of Present Illness Initial Comments: Miss Ingram is a 48-year-old female with history of insulin-dependent diabetes, hypertension, subarachnoid hemorrhage and dyslipidemia and previous cardiac arrest who presents with lethargy and altered mental status via EMS from a hotel room. Patient unable to give any history due to severe illness. I have seen and evaluated Mrs. Ingram twice recently for hypoglycemia. MD Complaint: altered mental status -: days(s) (1) Severity: severe Consistency of Symptoms: getting worse - Related Data Previous Rx's Medication Instructions Recorded Last Taken Type Metoprolol [Lopressor TAB] 25 mg PO BID #60 tablet 12/29/16 Unknown Rx Famotidine [Pepcid] 20 mg PO DAILY #30 tablet 02/04/17 Unknown Rx Furosemide [Lasix TAB] 40 mg PO 0600,1800 #60 tablet 02/04/17 Unknown Rx Insulin NPH/Regular [NovoLIN 70/30] 18 unit SQ BIDDIAB #1 vial 02/04/17 Unknown Rx Metoprolol [Lopressor TAB] 50 mg PO TID #90 tablet 02/04/17 Unknown Rx Allergies Allergy/AdvReac Type Severity Reaction Status Date / Time No Known Allergies Allergy Verified 12/03/16 23:01 ED Review of Systems ROS: Stated complaint: HIGH BLOOD SUGAR Other details as noted in HPI Comment: Unobtainable due to pts medical conditions (severe illness) ED Past Medical Hx - Past Medical History Hx Hypertension: Yes Hx Heart Attack/AMI: Yes (STEMI on arrival to ER, VFIB and Amiodarone used, converted and stable now) Hx Congestive Heart Failure: No Hx Diabetes: Yes Hx Deep Vein Thrombosis: No Hx GERD: Yes Hx Sickle Cell Disease: No Hx Asthma: No Hx COPD: No Hx HIV: No - Surgical History Hx Open Heart Surgery: Yes Hx Pacemaker: No Hx Internal Defibrillator: No - Social History Smoking Status: Unknown if ever smoked - Medications Home Medications: Home Medications Medication Instructions Recorded Confirmed Last Taken Type Metoprolol [Lopressor TAB] 25 mg PO BID #60 tablet 12/29/16 01/29/17 Unknown Rx Famotidine [Pepcid] 20 mg PO DAILY #30 tablet 02/04/17 Unknown Rx Furosemide [Lasix TAB] 40 mg PO 0600,1800 #60 tablet 02/04/17 Unknown Rx Insulin NPH/Regular [NovoLIN 70/30] 18 unit SQ BIDDIAB #1 vial 02/04/17 Unknown Rx Metoprolol [Lopressor TAB] 50 mg PO TID #90 tablet 02/04/17 Unknown Rx ED Physical Exam - General Limitations: Altered Mental Status General appearance: lethargic, in distress, other (thrashing about bed, Kussmaul respirations, nonverbal) - Head Head exam: Present: atraumatic, normocephalic - Eye Eye exam: Present: PERRL - ENT ENT exam: Present: mucous membranes dry - Neck Neck exam: Present: normal inspection, full ROM - Respiratory Respiratory exam: Present: respiratory distress, accessory muscle use - Cardiovascular Cardiovascular Exam: Present: regular rate, normal rhythm, other (sternotomy scar +JVD). Absent: systolic murmur, diastolic murmur - GI/Abdominal GI/Abdominal exam: Present: soft. Absent: distended, tenderness, guarding, rebound - Neurological Exam Neurological exam: Present: other (lethargic nonverbal) - Psychiatric Psychiatric exam: Present: flat affect - Skin Skin exam: Present: pallor ED Course Vital Signs 08/01/18 08/01/18 08/01/18 16:02 16:08 16:09 Pulse Rate 95 H 95 H 95 H Respiratory 29 H 26 H 26 H Rate Blood Pressure 125/61 Blood Pressure 125/61 [Left] O2 Sat by Pulse 94 94 Oximetry 08/01/18 08/01/18 08/01/18 16:15 16:31 16:45 Pulse Rate 96 H 93 H 91 H Respiratory 33 H 30 H 28 H Rate Blood Pressure 125/61 123/57 123/57 Blood Pressure [Left] O2 Sat by Pulse 100 96 100 Oximetry 08/01/18 17:01 Pulse Rate 94 H Respiratory 26 H Rate Blood Pressure 124/56 Blood Pressure [Left] O2 Sat by Pulse 100 Oximetry - Reevaluation(s) Reevaluation #1: 08/01/18 16:32 Ms. Ingram is obvious very ill with DKA and lethargy. I came to the bedside immediately upon notification of nurse. I spoke to EMS. I discussed case with nursing staff. Attempted external jugular vein puncture on both sides without success. 08/01/18 16:32 - Lab Data Result diagrams: 08/01/18 16:17 08/01/18 16:17 Lab Results 08/01/18 08/01/18 08/01/18 Range/Units 16:17 16:17 16:17 WBC 21.6 H (4.5-11.0) K/mm3 RBC 3.28 L (3.65-5.03) M/mm3 Hgb 8.7 L (10.1-14.3) gm/dl Hct 37.9 (30.3-42.9) % MCV 116 H (79-97) fl MCH 27 L (28-32) pg MCHC 23 L (30-34) % RDW 24.2 H (13.2-15.2) % Plt Count 411 (140-440) K/mm3 Add Manual Diff Complete Total Counted 100 Seg Neuts % (Manual) 91.0 H (40.0-70.0) % Band Neutrophils % 0 % Lymphocytes % (Manual) 4.0 L (13.4-35.0) % Reactive Lymphs % (Man) 0 % Monocytes % (Manual) 5.0 (0.0-7.3) % Eosinophils % (Manual) 0 (0.0-4.3) % Basophils % (Manual) 0 (0.0-1.8) % Metamyelocytes % 0 % Myelocytes % 0 % Promyelocytes % 0 % Blast Cells % 0 % Nucleated RBC % Not Reportable Seg Neutrophils # Man 19.7 H (1.8-7.7) K/mm3 Band Neutrophils # 0.0 K/mm3 Lymphocytes # (Manual) 0.9 L (1.2-5.4) K/mm3 Abs React Lymphs (Man) 0.0 K/mm3 Monocytes # (Manual) 1.1 H (0.0-0.8) K/mm3 Eosinophils # (Manual) 0.0 (0.0-0.4) K/mm3 Basophils # (Manual) 0.0 (0.0-0.1) K/mm3 Metamyelocytes # 0.0 K/mm3 Myelocytes # 0.0 K/mm3 Promyelocytes # 0.0 K/mm3 Blast Cells # 0.0 K/mm3 WBC Morphology Not Reportable Hypersegmented Neuts Not Reportable Hyposegmented Neuts Not Reportable Hypogranular Neuts Not Reportable Smudge Cells Not Reportable Toxic Granulation Not Reportable Toxic Vacuolation Not Reportable Dohle Bodies Not Reportable Pelger-Huet Anomaly Not Reportable Mary Rods Not Reportable Platelet Estimate Appears normal Clumped Platelets Not Reportable Plt Clumps, EDTA Not Reportable Large Platelets Not Reportable Giant Platelets Not Reportable Platelet Satelliting Not Reportable Plt Morphology Comment Not Reportable RBC Morphology Not Reportable Dimorphic RBCs Not Reportable Polychromasia Not Reportable Hypochromasia Not Reportable Poikilocytosis Not Reportable Anisocytosis 2+ Microcytosis Not Reportable Macrocytosis 1+ Spherocytes Not Reportable Pappenheimer Bodies Not Reportable Sickle Cells Not Reportable Target Cells Not Reportable Tear Drop Cells Not Reportable Ovalocytes Not Reportable Helmet Cells Not Reportable Landers-Imboden Bodies Not Reportable Machias Rings Not Reportable Jerri Cells Not Reportable Bite Cells Not Reportable Crenated Cell Not Reportable Elliptocytes Not Reportable Acanthocytes (Spur) Not Reportable Rouleaux Not Reportable Hemoglobin C Crystals Not Reportable Schistocytes Not Reportable Malaria parasites Not Reportable Michael Bodies Not Reportable Hem Pathologist Commnt No VBG pH 6.903 L* (7.320-7.420) Sodium 127 L (137-145) mmol/L Potassium 7.3 H* (3.6-5.0) mmol/L Chloride 77.1 L (98-107) mmol/L Carbon Dioxide 3 L* (22-30) mmol/L Anion Gap 54 mmol/L BUN 52 H (7-17) mg/dL Creatinine 3.8 H (0.7-1.2) mg/dL Estimated GFR 15 ml/min BUN/Creatinine Ratio 14 % Glucose 1487 H* (65-100) mg/dL POC Glucose (70-105) Calcium 8.0 L (8.4-10.2) mg/dL Troponin T (0.00-0.029) ng/mL Triglycerides (2-149) mg/dL Cholesterol (50-199) mg/dL LDL Cholesterol Direct (50-130) mg/dL HDL Cholesterol (40-59) mg/dL Cholesterol/HDL Ratio % Lipase (13-60) units/L Urine Color (Yellow) Urine Turbidity (Clear) Urine pH (5.0-7.0) Ur Specific [place] (1.003-1.030) Urine Protein (Negative) mg/dL Urine Glucose (UA) (Negative) mg/dL Urine Ketones (Negative) mg/dL Urine Blood (Negative) Urine Nitrite (Negative) Urine Bilirubin (Negative) Urine Urobilinogen (<2.0) mg/dL Ur Leukocyte Esterase (Negative) Urine WBC (Auto) (0.0-6.0) /HPF Urine RBC (Auto) (0.0-6.0) /HPF U Epithel Cells (Auto) (0-13.0) /HPF Urine Bacteria (Auto) (Negative) /HPF Urine Mucus /HPF Urine Yeast (Budding) /HPF 08/01/18 08/01/18 08/01/18 Range/Units 16:17 16:44 17:15 WBC (4.5-11.0) K/mm3 RBC (3.65-5.03) M/mm3 Hgb (10.1-14.3) gm/dl Hct (30.3-42.9) % MCV (79-97) fl MCH (28-32) pg MCHC (30-34) % RDW (13.2-15.2) % Plt Count (140-440) K/mm3 Add Manual Diff Total Counted Seg Neuts % (Manual) (40.0-70.0) % Band Neutrophils % % Lymphocytes % (Manual) (13.4-35.0) % Reactive Lymphs % (Man) % Monocytes % (Manual) (0.0-7.3) % Eosinophils % (Manual) (0.0-4.3) % Basophils % (Manual) (0.0-1.8) % Metamyelocytes % % Myelocytes % % Promyelocytes % % Blast Cells % % Nucleated RBC % Seg Neutrophils # Man (1.8-7.7) K/mm3 Band Neutrophils # K/mm3 Lymphocytes # (Manual) (1.2-5.4) K/mm3 Abs React Lymphs (Man) K/mm3 Monocytes # (Manual) (0.0-0.8) K/mm3 Eosinophils # (Manual) (0.0-0.4) K/mm3 Basophils # (Manual) (0.0-0.1) K/mm3 Metamyelocytes # K/mm3 Myelocytes # K/mm3 Promyelocytes # K/mm3 Blast Cells # K/mm3 WBC Morphology Hypersegmented Neuts Hyposegmented Neuts Hypogranular Neuts Smudge Cells Toxic Granulation Toxic Vacuolation Dohle Bodies Pelger-Huet Anomaly Mary Rods Platelet Estimate Clumped Platelets Plt Clumps, EDTA Large Platelets Giant Platelets Platelet Satelliting Plt Morphology Comment RBC Morphology Dimorphic RBCs Polychromasia Hypochromasia Poikilocytosis Anisocytosis Microcytosis Macrocytosis Spherocytes Pappenheimer Bodies Sickle Cells Target Cells Tear Drop Cells Ovalocytes Helmet Cells Landesr-Imboden Bodies Machias Rings Jerri Cells Bite Cells Crenated Cell Elliptocytes Acanthocytes (Spur) Rouleaux Hemoglobin C Crystals Schistocytes Malaria parasites Michael Bodies Hem Pathologist Commnt VBG pH (7.320-7.420) Sodium (137-145) mmol/L Potassium (3.6-5.0) mmol/L Chloride (98-107) mmol/L Carbon Dioxide (22-30) mmol/L Anion Gap mmol/L BUN (7-17) mg/dL Creatinine (0.7-1.2) mg/dL Estimated GFR ml/min BUN/Creatinine Ratio % Glucose (65-100) mg/dL POC Glucose > 500 H (70-105) Calcium (8.4-10.2) mg/dL Troponin T 0.086 H (0.00-0.029) ng/mL Triglycerides 279 H (2-149) mg/dL Cholesterol 229 H (50-199) mg/dL LDL Cholesterol Direct 154 H (50-130) mg/dL HDL Cholesterol 47 (40-59) mg/dL Cholesterol/HDL Ratio 4.87 % Lipase 43 (13-60) units/L Urine Color Yellow (Yellow) Urine Turbidity Cloudy (Clear) Urine pH 5.0 (5.0-7.0) Ur Specific [place] 1.021 (1.003-1.030) Urine Protein 100 mg/dl (Negative) mg/dL Urine Glucose (UA) >=500 (Negative) mg/dL Urine Ketones 20 (Negative) mg/dL Urine Blood Mod (Negative) Urine Nitrite Neg (Negative) Urine Bilirubin Neg (Negative) Urine Urobilinogen < 2.0 (<2.0) mg/dL Ur Leukocyte Esterase Neg (Negative) Urine WBC (Auto) 17.0 H (0.0-6.0) /HPF Urine RBC (Auto) 4.0 (0.0-6.0) /HPF U Epithel Cells (Auto) 23.0 H (0-13.0) /HPF Urine Bacteria (Auto) 1+ (Negative) /HPF Urine Mucus Few /HPF Urine Yeast (Budding) 2+ /HPF 08/01/18 17:37 EKG obtained 1649 Normal sinus rhythm rate 90 bpm normal axis prolonged QT interval greater than [address] elevation - Radiology Data Radiology results: report reviewed AP portable chest: Basilar atelectasis - Medical Decision Making Ms. Ingram is a very pleasant 48 yo female with several co-morbities and medical condtions which have caused several prolonged hospitalizations including cardiac arrest. Today, she has metabolic encephalopathy with severe diabetic ketoacidosis. Sepsis and ACS workup initiated in the ED. Resuscitation include IV fluid and insulin therapy. After resuscitation, patient is now able to answer questions and speak words. Mental status is improving. Due to severe acidosis and hyperkalemia, I also ordered sodium bicarbonate therapy. Dr. Weber hospitalist agreed to admit the patient to inpatient service. I spoke with Dr. Stevenson latcher. Sepsis bundle protocol initiated in the ED. Unclear inciting factor which led to diabetic ketoacidosis. Due to several co-morbidities patient is at risk for sepsis and acute coronary syndrome. Broad spectrum antibiotic also initiated ED . Critical Care Time: Yes Critical care time in (mins) excluding proc time.: 55 Critical care attestation.: If time is entered above; I have spent that time in minutes in the direct care of this critically ill patient, excluding procedure time. 55 minutes of critical care time excluding procedures were used in the care of the patient. Patient required multiple assessments and interventions. I reviewed the electronic medical record. I spoke with consultants involved in the care of the patient. ED Disposition Clinical Impression: DKA (diabetic ketoacidoses), Acute metabolic encephalopathy Disposition: [id number] OP ADMIT IP TO THIS HOSP Is pt being admited?: Yes Does the pt Need Aspirin: No Condition: Stable
[2018-08-01 16:44] LABS: Hematocrit 37.9 % (30.3-42.9); Hemoglobin 8.7 gm/dl (10.1-14.3); Mean Corpuscular HGB Conc 23 % (30-34); Platelet Count 411 K/mm3 (140-440); Red Blood Count 3.28 M/mm3 (3.65-5.03)
[2018-08-01 16:45] LABS: Mean Corpuscular Volume 116 fl (79-97); Red Cell Distribution Width 24.2 % (13.2-15.2)
[2018-08-01] MEDS ORDERED: HumuLIN R 100 UNITS in NACL 0.9% 99 ML IV SCH (17:00)
[2018-08-01] MEDS ORDERED: ZOSYN/NS 4.5GM/100ML 4.5 GM/100 ML VIAL IV ONE (17:18)
[2018-08-01 17:24] LABS: Basophils % (Manual) 0 % (0.0-1.8); Eosinophils % (Manual) 0 % (0.0-4.3); Total Cells Counted 100
[2018-08-01 17:25] LABS: Anisocytosis 2+
[2018-08-01 17:26] LABS: Macrocytosis 1+
--- NOTE | 2018-08-01 17:30 | XRay Report ---
FINAL REPORT EXAM: XR CHEST 1V AP HISTORY: dyspnea TECHNIQUE: AP portable view of the chest. PRIORS: None. FINDINGS: There are multiple sternotomy wires and mediastinal clips. There is a left atrial appendage closure d evice in place. There is a prosthetic cardiac valve. The heart is enlarged. Pulmonary vascularity lele ears normal. There are linear opacities in the right lung base most consistent with subsegmental atelectasis. The bones and soft tissues are unremarkable. IMPRESSION: Cardiomegaly. No evidence of CHF Right basilar subsegmental atelectasis
[2018-08-01 17:36] LABS: Bacteria,Urine 1+ /HPF (Negative); Bilirubin,Urine NEG (Negative); Blood,Urine MOD (Negative); Color,Urine Yellow (Yellow); Mucus,Urine FEW /HPF; Urobilinogen,Urine < 2.0 mg/dL (<2.0)
--- NOTE | 2018-08-01 17:40 | History and Physical Report ---
History of Present Illness Chief complaint: confusion History of present illness: 48 YO Female with HTN, PR, Cardiac Arrest, CAD,Malnutrition, DM, GERD, Medication Noncompliance presents to ED for evaluation. Pt is confused and lethargic at time of exam and the patient is unable to provide history. History taken from family as ED staff and EMS. As per report, EMS was notified and upon arrival to the patients motel room- the patient was found to be lethargic with decreased responsiveness. Pt transported to [facility] for further care and evaluation. Upon arrival the patient was found to have DKA, Sepsis, Acidosis, ARF, as well as elevated cardiac enzymes. No reports of fever, chills, CP, Palpitations, Syncope, trauma, falls, or loss of consciousness. Pt admitted to ICU and initiated on DKA and Sepsis Protocols respectively. Pulmonary team consulted, as well as Nephrology team for renal failure, and Cardiology team for elevated troponin. Past History Past Medical History: acute PR, CAD, diabetes, GERD, hypertension Past Surgical History: Other (cardiac) Social history: single. denies: smoking, alcohol abuse Family history: diabetes, hypertension Medications and Allergies Allergies Allergy/AdvReac Type Severity Reaction Status Date / Time No Known Allergies Allergy Verified 12/03/16 23:01 Home Medications Medication Instructions Recorded Confirmed Last Taken Type Metoprolol [Lopressor TAB] 25 mg PO BID #60 tablet 12/29/16 01/29/17 Unknown Rx Famotidine [Pepcid] 20 mg PO DAILY #30 tablet 02/04/17 Unknown Rx Furosemide [Lasix TAB] 40 mg PO 0600,1800 #60 tablet 02/04/17 Unknown Rx Insulin NPH/Regular [NovoLIN 70/30] 18 unit SQ BIDDIAB #1 vial 02/04/17 Unknown Rx Metoprolol [Lopressor TAB] 50 mg PO TID #90 tablet 02/04/17 Unknown Rx Active Meds: Active Medications Insulin Human Regular 100 (units/ Sodium Chloride) 100 mls @ 1 mls/hr IV TITR ULI; Protocol Piperacillin Sod/Tazobactam Sod (Zosyn/Ns 4.5gm/100ml) 4.5 gm in 100 mls @ 200 mls/hr IV ONCE ONE Stop: 08/01/18 17:47 Sodium Bicarbonate (Sodium Bicarbonate) 50 meq IV ONCE ONE Stop: 08/01/18 18:01 Review of Systems ROS unobtainable: due to mental status Exam - Constitutional Vitals: Temp Pulse Resp BP Pulse Ox 94 H 26 H 124/56 100 08/01/18 17:01 08/01/18 17:01 08/01/18 17:01 08/01/18 17:01 General appearance: Present: severe distress - EENT Eyes: Present: miosis - Neck Neck: Present: supple, normal ROM - Respiratory Respiratory effort: normal Respiratory: bilateral: CTA - Cardiovascular Rhythm: other (tachycardia) Heart Sounds: Present: S1 & S2. Absent: rub, click - Extremities Extremities: pulses symmetrical, No edema Peripheral Pulses: abnormal (capillary refill greater than 3.5 sseconds) - Abdominal General gastrointestinal: Present: soft, non-tender, non-distended, normal bowel sounds Female genitourinary: Present: normal - Integumentary Integumentary: Present: clear, dry, clammy, decreased turgor - Musculoskeletal Musculoskeletal: generalized weakness - Psychiatric Psychiatric: no appropriate mood/affect, no intact judgment & insight, no memory intact - Neurologic Neurologic: CNII-XII intact, no focal deficits, moves all extremities, no gait normal Results - Labs CBC & Chem 7: 08/02/18 03:46 08/02/18 03:46 Labs: Abnormal lab results 08/01/18 08/01/18 08/01/18 Range/Units 16:17 16:17 16:17 WBC 21.6 H (4.5-11.0) K/mm3 RBC 3.28 L (3.65-5.03) M/mm3 Hgb 8.7 L (10.1-14.3) gm/dl MCV 116 H (79-97) fl MCH 27 L (28-32) pg MCHC 23 L (30-34) % RDW 24.2 H (13.2-15.2) % Seg Neuts % (Manual) 91.0 H (40.0-70.0) % Lymphocytes % (Manual) 4.0 L (13.4-35.0) % Seg Neutrophils # Man 19.7 H (1.8-7.7) K/mm3 Lymphocytes # (Manual) 0.9 L (1.2-5.4) K/mm3 Monocytes # (Manual) 1.1 H (0.0-0.8) K/mm3 VBG pH 6.903 L* (7.320-7.420) Sodium 127 L (137-145) mmol/L Potassium 7.3 H* (3.6-5.0) mmol/L Chloride 77.1 L (98-107) mmol/L Carbon Dioxide 3 L* (22-30) mmol/L BUN 52 H (7-17) mg/dL Creatinine 3.8 H (0.7-1.2) mg/dL Glucose 1487 H* (65-100) mg/dL POC Glucose (70-105) Calcium 8.0 L (8.4-10.2) mg/dL Troponin T (0.00-0.029) ng/mL Urine WBC (Auto) (0.0-6.0) /HPF U Epithel Cells (Auto) (0-13.0) /HPF 08/01/18 08/01/18 08/01/18 Range/Units 16:17 16:44 17:15 WBC (4.5-11.0) K/mm3 RBC (3.65-5.03) M/mm3 Hgb (10.1-14.3) gm/dl MCV (79-97) fl MCH (28-32) pg MCHC (30-34) % RDW (13.2-15.2) % Seg Neuts % (Manual) (40.0-70.0) % Lymphocytes % (Manual) (13.4-35.0) % Seg Neutrophils # Man (1.8-7.7) K/mm3 Lymphocytes # (Manual) (1.2-5.4) K/mm3 Monocytes # (Manual) (0.0-0.8) K/mm3 VBG pH (7.320-7.420) Sodium (137-145) mmol/L Potassium (3.6-5.0) mmol/L Chloride (98-107) mmol/L Carbon Dioxide (22-30) mmol/L BUN (7-17) mg/dL Creatinine (0.7-1.2) mg/dL Glucose (65-100) mg/dL POC Glucose > 500 H (70-105) Calcium (8.4-10.2) mg/dL Troponin T 0.086 H (0.00-0.029) ng/mL Urine WBC (Auto) 17.0 H (0.0-6.0) /HPF U Epithel Cells (Auto) 23.0 H (0-13.0) /HPF Assessment and Plan - Patient Problems (1) Sepsis Current Visit: Yes Status: Acute Qualifiers: Sepsis type: sepsis due to unspecified organism Qualified Code(s): A41.9 - Sepsis, unspecified organism Plan to address problem: Admit to ICU: Sepsis protocol: IV antibiotic therapy, IVF resuscitation, monitor uop q shift, blood cultures, urinalysis, chest x ray, serial lactic acid level, CBC, CMP, The high probability of a clinically significant, sudden or life threatening deterioration of the [cardiac, endocrine, neuro, renal, pulmonary] system(s) required my full and direct attention, intervention and personal management. The aggregate critical care time was [65] minutes. This time is in addition to time spent performing reported procedures but includes the following: [x] Data Review and interpretation [x] Patient assessment and monitoring of vital signs [x] Documentation [x] Medication orders and management (2) DKA (diabetic ketoacidoses) Current Visit: Yes Status: Acute Qualifiers: Diabetes mellitus complication detail: with coma Plan to address problem: DKA Protocol: Admit to ICU, Insulin drip, serial bmp, monitor anion gap, IVF resuscitation, IV bicarbonate, monitor serum potassium levels. (3) Acidosis Current Visit: Yes Status: Acute Plan to address problem: IVF resuscitation therapy, monitor uop q shift, IV bicarbonate, serial lactic acid levels (4) Acute renal failure Current Visit: No Status: Acute Qualifiers: Acute renal failure type: with acute tubular necrosis Qualified Code(s): N17.0 - Acute kidney failure with tubular necrosis Plan to address problem: IVF resuscitation therapy, urine electrolytes, avoid nephrotoxic agents, Nephrology consulted, (5) Elevated troponin Current Visit: Yes Status: Acute Plan to address problem: Serial cardiac enzymes, ekg, telemetry, cardiology consulted in ED, treat real failure. (6) Hyperkalemia Current Visit: Yes Status: Acute Plan to address problem: Serial bmp, insulin therapy, calcium gluconate, kayexelate, (7) DVT prophylaxis Current Visit: Yes Status: Acute Plan to address problem: SCD to BLE while in bed
[2018-08-01] MEDS ORDERED: PROVENTIL IH PRN (17:42)
[2018-08-01] MEDS ORDERED: NACL 0.9% 1000 ML IV ONE (17:42)
[2018-08-01] MEDS ORDERED: SODIUM CHLORIDE FLUSH SYRINGE 10 ML IV PRN ×2 (17:42→20:04)
[2018-08-01] MEDS ORDERED: APRESOLINE IV PRN (17:47)
[2018-08-01] MEDS ORDERED: CALCIUM GLUCONATE 1,000 MG in NACL 0.9% 100 ML IV ONE (17:48)
[2018-08-01] MEDS ORDERED: KIONEX PR ONE (17:48)
[2018-08-01 17:49] LABS: Chol/HDL Ratio 4.87 %
[2018-08-01] MEDS ORDERED: SODIUM BICARBONATE IV ONE ×3 (18:00→20:00)
[2018-08-01 19:11] LABS: Calcium 7.8 mg/dL (8.4-10.2)
[2018-08-01] MEDS ORDERED: NACL 0.9% 1000 ML 1,000 ML ONE (20:42)
[2018-08-01] MEDS ORDERED: NACL 0.9% 1000 ML 1,000 ML IV ONE (21:04)
[2018-08-01 21:07] LABS: Mean Corpuscular HGB Conc 28 % (30-34); Mean Corpuscular Volume 95 fl (79-97); Platelet Count 359 K/mm3 (140-440); Red Blood Count 3.04 M/mm3 (3.65-5.03)
[2018-08-01 21:08] LABS: Hemoglobin 7.9 gm/dl (10.1-14.3)
[2018-08-01 21:09] LABS: Hematocrit 28.8 % (30.3-42.9)
[2018-08-01 21:53] LABS: Basophils % (Manual) 0 % (0.0-1.8); Eosinophils % (Manual) 0 % (0.0-4.3); Monocytes % (Manual) 0 % (0.0-7.3); Total Cells Counted 100
[2018-08-01 21:54] LABS: Large Platelets Few; Platelet Estimate Consistent w Auto
[2018-08-01 21:55] LABS: Anisocytosis 1+; Macrocytosis Few; Schistocytes Rare; Target Cells Few
[2018-08-01] MEDS ORDERED: ZOSYN/NS 4.5GM/100ML 4.5 GM/100 ML VIAL IV SCH (22:00)
[2018-08-01 23:23] LABS: Creatinine,Urine 45.9 mg/dL (0.1-20.0)
[2018-08-01] MEDS ORDERED: NACL 0.9% 1000 ML 1,000 ML IV SCH (23:45)
[2018-08-02 00:33] LABS: Calcium 6.9 mg/dL (8.4-10.2)
[2018-08-02] MEDS: HumuLIN R 100 UNITS in NACL 0.9% 99 ML IV SCH ×2 (01:32→07:00)
[2018-08-02 04:33] LABS: Basophils # (Auto) 0.1 K/mm3 (0.0-0.1); Eosinophils % (Auto) 0.2 % (0.0-4.3); Mean Corpuscular HGB Conc 29 % (30-34); Mean Corpuscular Volume 92 fl (79-97); Monocytes # (Auto) 0.7 K/mm3 (0.0-0.8); Monocytes % (Auto) 3.9 % (0.0-7.3); Platelet Count 334 K/mm3 (140-440); Red Blood Count 2.84 M/mm3 (3.65-5.03)
[2018-08-02 04:36] LABS: Hematocrit 26.1 % (30.3-42.9); Hemoglobin 7.5 gm/dl (10.1-14.3); Red Cell Distribution Width 22.8 % (13.2-15.2)
[2018-08-02 05:18] LABS: Band Neutrophils # (Manual) 0.7 K/mm3; Basophils % (Manual) 0 % (0.0-1.8); Eosinophils % (Manual) 0 % (0.0-4.3); Total Cells Counted 100
[2018-08-02 05:19] LABS: Anisocytosis 1+; Hypochromasia 1+; Platelet Estimate Consistent w Auto
[2018-08-02 05:20] LABS: Crenated RBC Few
[2018-08-02] MEDS: ZOSYN/NS 2.25 GM/50ML 2.25 GM/50 ML BAG IV SCH ×3 (06:15→21:40)
[2018-08-02] MEDS ORDERED: D5/0.45NS 1,000 ML IV SCH (08:00)
--- NOTE | 2018-08-02 09:03 | Consultation ---
History of Present Illness - History of Present Illness Thank you for the consultation ! Patient was evaluated today My assessment and plan are as follows; Acute kidney injury likely resulting from volume depletion dehydration in a pa tient who has multiple risk factors for underlying chronic kidney disease/ patient baseline creatinine was 2.2 in April 2018 Admission creatinine was 3.8, with metabolic acidosis bicarbonate was 3 with sodium of 127: Pseudohyponatremia Patient is currently being treated for diabetic ketoacidosis creatinine is stable some degree of acute tubular necrosis due to severe renal ischemia could not be ruled out, Renal ultrasonogram obtained 2016 showed evidence of dilated urinary system? Obstructive uropathy patient will need a follow-up ultrasonogram Admitted with altered mental status and letharginess, likely due to diabetic ketoacidosis to rule out other causes Severe hyperkalemia present upon admission potassium was 7.3, current potassium is 4.6 much improved Severe metabolic acidosis likely resulting from diabetic ketoacidosis blood sugar was 1487 upon presentation Multiple underlying comorbidities which makes patient high risk for underlying chronic kidney disease including diabetes, hypertension, Other medical problems include the subarachnoid hemorrhage, dyslipidemia, prior cardiac arrest We will continue to follow and make recommendations from renal standpoint. Thank you for the consultation Author: Mina Bains M.D. [facility], [address] [place] [address] Tel; [phone] Source of information: From patient, who is a very poor historian Current chart,old records History of present illness Patient is a 48-year-old female who has been admitted here with multiple health issues including diabetic acidosis severe hyperglycemia renal failure and hyperkalemia. Patient was brought into the hospital due to altered mental status she is currently recovering from her encephalopathy and is not able to provide me history correctly she is also noted to be a very poor historian, Upon arrival patient's blood sugar was 1487 BUN 52 creatinine 3.8 with a potassium of 7.3 and bicarbonate of 3 sodium was 127 Consultation was placed for management of renal failure as well as hyperkalemia and acidosis Past medical history significant for Hypertension Diabetes Chronic kidney disease Gastroesophageal reflux disorder Cardiac arrest Coronary artery disease Myocardial infarction Current allergies: Reviewed from the chart Family history social history and medication: Reviewed from the chart Review of system Limited due to altered mental status patient being poor historian Physical examination Vitals: Reviewed General: No acute distress HEENT: Oral mucosa moist no pallor or icterus Neck: Supple without any JVD thyromegaly or nodular mass Chest: Clear to auscultation Heart: Regular rate and rhythm S1-S2 heard no S3-S4 Abdomen: Soft nontender, bowel sounds present no renal bruit no suprapubic masses no CVA tenderness noted Extremity: Minimal edema dry skin no peripheral cyanosis Endocrine: Thyroid not enlarged Psychiatric: No agitation and aggression noted Musculoskeletal: No joint effusion noted Labs and x-rays: Reviewed from this admission Past History Past Medical History: acute DE, CAD, diabetes, GERD, hypertension Past Surgical History: Other (cardiac) Social history: single. denies: smoking, alcohol abuse Family history: diabetes, hypertension Medications and Allergies Allergies Allergy/AdvReac Type Severity Reaction Status Date / Time No Known Allergies Allergy Verified 12/03/16 23:01 Home Medications Medication Instructions Recorded Confirmed Last Taken Type Metoprolol [Lopressor TAB] 25 mg PO BID #60 tablet 12/29/16 01/29/17 Unknown Rx Famotidine [Pepcid] 20 mg PO DAILY #30 tablet 02/04/17 Unknown Rx Furosemide [Lasix TAB] 40 mg PO 0600,1800 #60 tablet 02/04/17 Unknown Rx Insulin NPH/Regular [NovoLIN 70/30] 18 unit SQ BIDDIAB #1 vial 02/04/17 Unknown Rx Metoprolol [Lopressor TAB] 50 mg PO TID #90 tablet 02/04/17 Unknown Rx Coumadin 08/02/18 Unknown History Active Meds: Active Medications Albuterol (Proventil) 2.5 mg IH Q3HRT PRN PRN Reason: Shortness Of Breath Aspirin (Ecotrin) 325 mg PO QDAY ULI Dextrose (D50w (25gm) Syringe) 0 ml IV PRN PRN PRN Reason: Hypoglycemia Famotidine (Pepcid) 20 mg PO DAILY ULI Hydralazine HCl (Apresoline) 10 mg IV TID PRN PRN Reason: Hypertension Insulin Human Regular 100 (units/ Sodium Chloride) 100 mls @ 1 mls/hr IV TITR ULI; Protocol Last Titration: 08/02/18 08:18 Dose: 0 units/hr, 0 mls/hr Documented by: Sodium Chloride (Nacl 0.9% 1000 Ml) 1,000 mls @ 125 mls/hr IV DIRECT ULI Piperacillin Sod/Tazobactam Sod (Zosyn/Ns 2.25 Gm/50ml) 2.25 gm in 50 mls @ 100 mls/hr IV Q8HR ULI Last Admin: 08/02/18 06:15 Dose: 100 mls/hr Documented by: Dextrose/Sodium Chloride (D5/0.45ns) 1,000 mls @ 125 mls/hr IV DIRECT ULI Last Admin: 08/02/18 07:10 Dose: 125 mls/hr Documented by: Sodium Chloride (Sodium Chloride Flush Syringe 10 Ml) 10 ml IV BID ULI Sodium Chloride (Sodium Chloride Flush Syringe 10 Ml) 10 ml IV PRN PRN PRN Reason: LINE FLUSH Sodium Chloride (Sodium Chloride Flush Syringe 10 Ml) 10 ml IV PRN PRN PRN Reason: LINE FLUSH Exam - Vital Signs Vital signs: Vital Signs Pulse Resp 95 H 29 H 08/01/18 16:02 08/01/18 16:02 Results - Lab Results 08/02/18 03:46 08/02/18 17:43 Most recent lab results Calcium 7.0 mg/dL (8.4-10.2) L 08/02/18 03:46 Phosphorus 12.70 mg/dL (2.5-4.5) H 08/01/18 17:54 Magnesium 3.00 mg/dL (1.7-2.3) H 08/01/18 17:54 Urine Creatinine 45.9 mg/dL (0.1-20.0) H 08/01/18 Unknown Urine Sodium 23 mmol/L 08/01/18 Unknown
[2018-08-02] MEDS: PEPCID PO SCH (10:00)
[2018-08-02] MEDS: ECOTRIN PO SCH (10:00)
--- NOTE | 2018-08-02 11:09 | Consultation ---
History of Present Illness Consult date: 08/02/18 Requesting physician: TEE MIMS Consult reason: chest pain History of present illness: The patient is a 48-year-old female with a past medical history significant for HFrEF, cardiac arrest, diabetes, hypertension, HLP, CKD and noncompliance. She has been seen by our practice on prior admissions. Per the chart, she presented from hotel room for evaluation of AMS. She currently c/o generalized pain and "bad kidneys". She admits that she has not been taking any prescription medications. She is currently being treated for DKA, metabolic acidosis, hyperkalemia, acute on chronic renal failure, suspected sepsis. Cardiology has been consulted for elevated Walter and chest pain, although pt denies any complaints of chest pain specifically. She states that she "hurts all over". Echo done 11/2016 showed EF 40-45%, abnormal diastolic function, trace MR, mild TR, RVSP 36mmHg. Past History Past Medical History: diabetes, GERD, heart failure, hypertension Social history: single. denies: smoking, alcohol abuse Family history: diabetes, hypertension Medications and Allergies Allergies Allergy/AdvReac Type Severity Reaction Status Date / Time No Known Allergies Allergy Verified 12/03/16 23:01 Home Medications Medication Instructions Recorded Confirmed Last Taken Type Metoprolol [Lopressor TAB] 25 mg PO BID #60 tablet 12/29/16 01/29/17 Unknown Rx Famotidine [Pepcid] 20 mg PO DAILY #30 tablet 02/04/17 Unknown Rx Furosemide [Lasix TAB] 40 mg PO 0600,1800 #60 tablet 02/04/17 Unknown Rx Insulin NPH/Regular [NovoLIN 70/30] 18 unit SQ BIDDIAB #1 vial 02/04/17 Unknown Rx Metoprolol [Lopressor TAB] 50 mg PO TID #90 tablet 02/04/17 Unknown Rx Active Meds: Active Medications Albuterol (Proventil) 2.5 mg IH Q3HRT PRN PRN Reason: Shortness Of Breath Aspirin (Ecotrin) 325 mg PO QDAY ULI Dextrose (D50w (25gm) Syringe) 0 ml IV PRN PRN PRN Reason: Hypoglycemia Famotidine (Pepcid) 20 mg PO DAILY ULI Hydralazine HCl (Apresoline) 10 mg IV TID PRN PRN Reason: Hypertension Insulin Human Regular 100 (units/ Sodium Chloride) 100 mls @ 1 mls/hr IV TITR ULI; Protocol Last Titration: 08/02/18 10:24 Dose: 4 units/hr, 4 mls/hr Documented by: Sodium Chloride (Nacl 0.9% 1000 Ml) 1,000 mls @ 125 mls/hr IV DIRECT ULI Piperacillin Sod/Tazobactam Sod (Zosyn/Ns 2.25 Gm/50ml) 2.25 gm in 50 mls @ 100 mls/hr IV Q8HR ULI Last Admin: 08/02/18 06:15 Dose: 100 mls/hr Documented by: Dextrose/Sodium Chloride (D5/0.45ns) 1,000 mls @ 125 mls/hr IV DIRECT ULI Last Admin: 08/02/18 07:10 Dose: 125 mls/hr Documented by: Sodium Chloride (Sodium Chloride Flush Syringe 10 Ml) 10 ml IV BID ULI Sodium Chloride (Sodium Chloride Flush Syringe 10 Ml) 10 ml IV PRN PRN PRN Reason: LINE FLUSH Sodium Chloride (Sodium Chloride Flush Syringe 10 Ml) 10 ml IV PRN PRN PRN Reason: LINE FLUSH Review of Systems Constitutional: other (generalized pain) Cardiovascular: no chest pain Gastrointestinal: nausea, vomiting Physical Examination Vital Signs Pulse Resp 95 H 29 H 08/01/18 16:02 08/01/18 16:02 General appearance: no acute distress HEENT: Positive: PERRL, Normocephaly, Mucus Membranes Moist Neck: Positive: neck supple, trachea midline Cardiac: Positive: Reg Rate and Rhythm, S1/S2 Lungs: Positive: Decreased Breath Sounds Neuro: Positive: Grossly Intact Abdomen: Negative: Tender Skin: Negative: Rash Musculoskeletal: No Pain Extremities: Absent: edema Results 08/02/18 03:46 08/02/18 09:30 Lipids 08/01/18 Range/Units 16:17 Triglycerides 279 H (2-149) mg/dL Cholesterol 229 H (50-199) mg/dL HDL Cholesterol 47 (40-59) mg/dL Cholesterol/HDL Ratio 4.87 % CBC 08/01/18 08/01/18 08/02/18 Range/Units 16:17 20:46 03:46 WBC 21.6 H 19.2 H 16.8 H (4.5-11.0) K/mm3 RBC 3.28 L 3.04 L 2.84 L (3.65-5.03) M/mm3 Hgb 8.7 L 7.9 L 7.5 L (10.1-14.3) gm/dl Hct 37.9 28.8 L D 26.1 L (30.3-42.9) % Plt Count 411 359 334 (140-440) K/mm3 Wells # 0.7 (0.0-0.8) K/mm3 Eos # 0.0 (0.0-0.4) K/mm3 Baso # 0.1 (0.0-0.1) K/mm3 Comprehensive Metabolic Panel 08/01/18 08/01/18 08/01/18 Range/Units 16:17 17:54 20:46 Sodium 127 L 129 L 136 L D (137-145) mmol/L Potassium 7.3 H* 6.6 H* 5.1 H D (3.6-5.0) mmol/L Chloride 77.1 L 80.2 L 89.3 L (98-107) mmol/L Carbon Dioxide 3 L* 5 L* 12 L D (22-30) mmol/L BUN 52 H 51 H 53 H (7-17) mg/dL Creatinine 3.8 H 3.9 H 3.4 H (0.7-1.2) mg/dL Glucose 1487 H* 1449 H* 1272 H* (65-100) mg/dL Calcium 8.0 L 7.8 L 7.0 L (8.4-10.2) mg/dL 08/01/18 08/02/18 08/02/18 Range/Units 23:38 02:06 03:46 Sodium 143 D 147 H 143 (137-145) mmol/L Potassium 4.1 3.5 L 4.6 D (3.6-5.0) mmol/L Chloride 99.9 105.5 99.4 (98-107) mmol/L Carbon Dioxide 16 L 18 L 13 L (22-30) mmol/L BUN 52 H 52 H 53 H (7-17) mg/dL Creatinine 3.7 H 3.4 H 3.4 H (0.7-1.2) mg/dL Glucose 864 H* 526 H* 829 H* (65-100) mg/dL Calcium 6.9 L 7.0 L 7.0 L (8.4-10.2) mg/dL 08/02/18 Range/Units 09:30 Sodium 152 H D (137-145) mmol/L Potassium 4.5 (3.6-5.0) mmol/L Chloride 113.0 H (98-107) mmol/L Carbon Dioxide 24 D (22-30) mmol/L BUN 50 H (7-17) mg/dL Creatinine 3.3 H (0.7-1.2) mg/dL Glucose 216 H (65-100) mg/dL Calcium 7.0 L (8.4-10.2) mg/dL - Imaging and Cardiology Echo: report reviewed (11/2016 showed EF 40-45%, abnormal diastolic function, trace MR, mild TR, RVSP 36mmHg. ) EKG: report reviewed, image reviewed EKG interpretations - Telemetry EKG Rhythm: Sinus Rhythm - EKG Sinus rhythms and dysrhythmias: sinus rhythm Assessment and Plan Pt denies any specific chest pain, she c/o generalized pain. ECG with no acute ischemic changes. Troponin elevation likely secondary to DKA, acidosis, renal failure, suspected sepsis, anemia, etc. Cont to trend and repeat ECG in AM. Cont supportive measures. F/u echo. Consider ischemic evaluation (stress test) once medically stabilized. The patient has been seen in conjunction with Dr. Hong who agrees with the assessment and plan of care. - Patient Problems (1) DKA (diabetic ketoacidoses) Current Visit: Yes Status: Acute Qualifiers: Diabetes mellitus complication detail: with coma (2) Acute on chronic renal failure Current Visit: Yes Status: Acute (3) Acidosis Current Visit: Yes Status: Acute (4) Hyperkalemia Current Visit: Yes Status: Acute (5) Elevated troponin Current Visit: Yes Status: Acute (6) Sepsis Current Visit: Yes Status: Acute Qualifiers: Sepsis type: sepsis due to unspecified organism Qualified Code(s): A41.9 - Sepsis, unspecified organism (7) Altered mental status Current Visit: Yes Status: Acute Qualifiers: Altered mental status type: unspecified Qualified Code(s): R41.82 - Altered mental status, unspecified (8) History of cardiac arrest Current Visit: Yes Status: Chronic (9) Diabetes Current Visit: Yes Status: Chronic (10) Cardiomyopathy Current Visit: Yes Status: Chronic Qualifiers: Cardiomyopathy type: unspecified Qualified Code(s): I42.9 - Cardiomyopathy, unspecified (11) Hypertension Current Visit: Yes Status: Chronic (12) Medical non-compliance Current Visit: Yes Status: Chronic
--- NOTE | 2018-08-02 12:09 | Consultation ---
History of Present Illness - Reason for Consult Consult date: 08/02/18 DKA Requesting physician: GUTIERREZ PADILLA - History of Present Illness 48 y/o female admitted with DKA and severe metabolic Acidosis. Confused and lethargic but was able to protect her airway. Given several IVF boluses and then started on Insulin drip. Anion Gap remains elevated this am and remains on insulin drip. Patient still somewhat confused but easily arousable. No family or friends at bedside. Past History Past Medical History: diabetes, GERD, heart failure, hypertension Past Surgical History: Other (cardiac) Social history: single. denies: smoking, alcohol abuse Family history: diabetes, hypertension Medications and Allergies Allergies Allergy/AdvReac Type Severity Reaction Status Date / Time No Known Allergies Allergy Verified 12/03/16 23:01 Home Medications Medication Instructions Recorded Confirmed Last Taken Type Metoprolol [Lopressor TAB] 25 mg PO BID #60 tablet 12/29/16 01/29/17 Unknown Rx Famotidine [Pepcid] 20 mg PO DAILY #30 tablet 02/04/17 Unknown Rx Furosemide [Lasix TAB] 40 mg PO 0600,1800 #60 tablet 02/04/17 Unknown Rx Insulin NPH/Regular [NovoLIN 70/30] 18 unit SQ BIDDIAB #1 vial 02/04/17 Unknown Rx Metoprolol [Lopressor TAB] 50 mg PO TID #90 tablet 02/04/17 Unknown Rx Active Meds: Active Medications Albuterol (Proventil) 2.5 mg IH Q3HRT PRN PRN Reason: Shortness Of Breath Aspirin (Ecotrin) 325 mg PO QDAY ULI Dextrose (D50w (25gm) Syringe) 0 ml IV PRN PRN PRN Reason: Hypoglycemia Famotidine (Pepcid) 20 mg PO DAILY ULI Famotidine (Pepcid) 20 mg IV DAILY ULI Hydralazine HCl (Apresoline) 10 mg IV TID PRN PRN Reason: Hypertension Insulin Human Regular 100 (units/ Sodium Chloride) 100 mls @ 1 mls/hr IV TITR ULI; Protocol Last Titration: 08/02/18 11:17 Dose: 3 units/hr, 3 mls/hr Documented by: Sodium Chloride (Nacl 0.9% 1000 Ml) 1,000 mls @ 125 mls/hr IV DIRECT ULI Piperacillin Sod/Tazobactam Sod (Zosyn/Ns 2.25 Gm/50ml) 2.25 gm in 50 mls @ 100 mls/hr IV Q8HR ULI Last Admin: 08/02/18 06:15 Dose: 100 mls/hr Documented by: Dextrose (D5w) 1,000 mls @ 125 mls/hr IV DIRECT ULI Sodium Chloride (Sodium Chloride Flush Syringe 10 Ml) 10 ml IV BID ULI Sodium Chloride (Sodium Chloride Flush Syringe 10 Ml) 10 ml IV PRN PRN PRN Reason: LINE FLUSH Sodium Chloride (Sodium Chloride Flush Syringe 10 Ml) 10 ml IV PRN PRN PRN Reason: LINE FLUSH Review of Systems All systems: negative Exam - Constitutional Vitals: Temp Pulse Resp BP Pulse Ox 98.7 F 90 18 160/65 100 08/02/18 08:00 08/02/18 11:05 08/02/18 10:41 08/02/18 10:41 08/02/18 10:41 General appearance: Present: no acute distress, cachectic, disheveled - EENT Eyes: Present: PERRL, EOM intact ENT: hearing intact, poor dentition - Neck Neck: Present: supple - Respiratory Respiratory effort: normal Respiratory: bilateral: CTA - Cardiovascular Rhythm: regular Heart Sounds: Present: S1 & S2, systolic murmur (3/6) - Extremities Extremities: pulses intact, pulses symmetrical - Abdominal General gastrointestinal: Present: soft, non-tender, hypoactive bowel sounds Female genitourinary: Present: deferred - Rectal Rectal Exam: deferred Results - Labs CBC & Chem 7: 08/02/18 03:46 08/02/18 09:30 Labs: Abnormal lab results 08/01/18 08/01/18 08/01/18 Range/Units 16:17 16:17 16:17 WBC 21.6 H (4.5-11.0) K/mm3 RBC 3.28 L (3.65-5.03) M/mm3 Hgb 8.7 L (10.1-14.3) gm/dl Hct (30.3-42.9) % MCV 116 H (79-97) fl MCH 27 L (28-32) pg MCHC 23 L (30-34) % RDW 24.2 H (13.2-15.2) % Seg Neuts % (Manual) 91.0 H (40.0-70.0) % Lymphocytes % (Manual) 4.0 L (13.4-35.0) % Seg Neutrophils # (1.8-7.7) K/mm3 Seg Neutrophils # Man 19.7 H (1.8-7.7) K/mm3 Lymphocytes # (Manual) 0.9 L (1.2-5.4) K/mm3 Monocytes # (Manual) 1.1 H (0.0-0.8) K/mm3 VBG pH 6.903 L* (7.320-7.420) Sodium 127 L (137-145) mmol/L Potassium 7.3 H* (3.6-5.0) mmol/L Chloride 77.1 L (98-107) mmol/L Carbon Dioxide 3 L* (22-30) mmol/L BUN 52 H (7-17) mg/dL Creatinine 3.8 H (0.7-1.2) mg/dL Glucose 1487 H* (65-100) mg/dL POC Glucose (70-105) Lactic Acid (0.7-2.0) mmol/L Calcium 8.0 L (8.4-10.2) mg/dL Phosphorus (2.5-4.5) mg/dL Magnesium (1.7-2.3) mg/dL Troponin T (0.00-0.029) ng/mL Triglycerides (2-149) mg/dL Cholesterol (50-199) mg/dL LDL Cholesterol Direct (50-130) mg/dL Urine WBC (Auto) (0.0-6.0) /HPF U Epithel Cells (Auto) (0-13.0) /HPF Urine Creatinine (0.1-20.0) mg/dL 08/01/18 08/01/18 08/01/18 Range/Units 16:17 16:44 17:15 WBC (4.5-11.0) K/mm3 RBC (3.65-5.03) M/mm3 Hgb (10.1-14.3) gm/dl Hct (30.3-42.9) % MCV (79-97) fl MCH (28-32) pg MCHC (30-34) % RDW (13.2-15.2) % Seg Neuts % (Manual) (40.0-70.0) % Lymphocytes % (Manual) (13.4-35.0) % Seg Neutrophils # (1.8-7.7) K/mm3 Seg Neutrophils # Man (1.8-7.7) K/mm3 Lymphocytes # (Manual) (1.2-5.4) K/mm3 Monocytes # (Manual) (0.0-0.8) K/mm3 VBG pH (7.320-7.420) Sodium (137-145) mmol/L Potassium (3.6-5.0) mmol/L Chloride (98-107) mmol/L Carbon Dioxide (22-30) mmol/L BUN (7-17) mg/dL Creatinine (0.7-1.2) mg/dL Glucose (65-100) mg/dL POC Glucose > 500 H (70-105) Lactic Acid (0.7-2.0) mmol/L Calcium (8.4-10.2) mg/dL Phosphorus (2.5-4.5) mg/dL Magnesium (1.7-2.3) mg/dL Troponin T 0.086 H (0.00-0.029) ng/mL Triglycerides 279 H (2-149) mg/dL Cholesterol 229 H (50-199) mg/dL LDL Cholesterol Direct 154 H (50-130) mg/dL Urine WBC (Auto) 17.0 H (0.0-6.0) /HPF U Epithel Cells (Auto) 23.0 H (0-13.0) /HPF Urine Creatinine (0.1-20.0) mg/dL 08/01/18 08/01/18 08/01/18 Range/Units 17:35 17:54 17:54 WBC (4.5-11.0) K/mm3 RBC (3.65-5.03) M/mm3 Hgb (10.1-14.3) gm/dl Hct (30.3-42.9) % MCV (79-97) fl MCH (28-32) pg MCHC (30-34) % RDW (13.2-15.2) % Seg Neuts % (Manual) (40.0-70.0) % Lymphocytes % (Manual) (13.4-35.0) % Seg Neutrophils # (1.8-7.7) K/mm3 Seg Neutrophils # Man (1.8-7.7) K/mm3 Lymphocytes # (Manual) (1.2-5.4) K/mm3 Monocytes # (Manual) (0.0-0.8) K/mm3 VBG pH (7.320-7.420) Sodium 129 L (137-145) mmol/L Potassium 6.6 H* (3.6-5.0) mmol/L Chloride 80.2 L (98-107) mmol/L Carbon Dioxide 5 L* (22-30) mmol/L BUN 51 H (7-17) mg/dL Creatinine 3.9 H (0.7-1.2) mg/dL Glucose 1449 H* (65-100) mg/dL POC Glucose (70-105) Lactic Acid 9.70 H* (0.7-2.0) mmol/L Calcium 7.8 L (8.4-10.2) mg/dL Phosphorus 12.70 H (2.5-4.5) mg/dL Magnesium 3.00 H (1.7-2.3) mg/dL Troponin T (0.00-0.029) ng/mL Triglycerides (2-149) mg/dL Cholesterol (50-199) mg/dL LDL Cholesterol Direct (50-130) mg/dL Urine WBC (Auto) (0.0-6.0) /HPF U Epithel Cells (Auto) (0-13.0) /HPF Urine Creatinine (0.1-20.0) mg/dL 08/01/18 08/01/18 08/01/18 Range/Units 18:47 20:17 20:46 WBC (4.5-11.0) K/mm3 RBC (3.65-5.03) M/mm3 Hgb (10.1-14.3) gm/dl Hct (30.3-42.9) % MCV (79-97) fl MCH (28-32) pg MCHC (30-34) % RDW (13.2-15.2) % Seg Neuts % (Manual) (40.0-70.0) % Lymphocytes % (Manual) (13.4-35.0) % Seg Neutrophils # (1.8-7.7) K/mm3 Seg Neutrophils # Man (1.8-7.7) K/mm3 Lymphocytes # (Manual) (1.2-5.4) K/mm3 Monocytes # (Manual) (0.0-0.8) K/mm3 VBG pH (7.320-7.420) Sodium (137-145) mmol/L Potassium (3.6-5.0) mmol/L Chloride (98-107) mmol/L Carbon Dioxide (22-30) mmol/L BUN (7-17) mg/dL Creatinine (0.7-1.2) mg/dL Glucose (65-100) mg/dL POC Glucose > 500 H (70-105) Lactic Acid 10.90 H* 4.90 H* (0.7-2.0) mmol/L Calcium (8.4-10.2) mg/dL Phosphorus (2.5-4.5) mg/dL Magnesium (1.7-2.3) mg/dL Troponin T (0.00-0.029) ng/mL Triglycerides (2-149) mg/dL Cholesterol (50-199) mg/dL LDL Cholesterol Direct (50-130) mg/dL Urine WBC (Auto) (0.0-6.0) /HPF U Epithel Cells (Auto) (0-13.0) /HPF Urine Creatinine (0.1-20.0) mg/dL 08/01/18 08/01/18 08/01/18 Range/Units 20:46 20:46 20:46 WBC 19.2 H (4.5-11.0) K/mm3 RBC 3.04 L (3.65-5.03) M/mm3 Hgb 7.9 L (10.1-14.3) gm/dl Hct 28.8 L D (30.3-42.9) % MCV (79-97) fl MCH 26 L (28-32) pg MCHC 28 L (30-34) % RDW 23.0 H (13.2-15.2) % Seg Neuts % (Manual) 98.0 H (40.0-70.0) % Lymphocytes % (Manual) 2.0 L (13.4-35.0) % Seg Neutrophils # (1.8-7.7) K/mm3 Seg Neutrophils # Man 18.8 H (1.8-7.7) K/mm3 Lymphocytes # (Manual) 0.4 L (1.2-5.4) K/mm3 Monocytes # (Manual) (0.0-0.8) K/mm3 VBG pH (7.320-7.420) Sodium 136 L D (137-145) mmol/L Potassium 5.1 H D (3.6-5.0) mmol/L Chloride 89.3 L (98-107) mmol/L Carbon Dioxide 12 L D (22-30) mmol/L BUN 53 H (7-17) mg/dL Creatinine 3.4 H (0.7-1.2) mg/dL Glucose 1272 H* (65-100) mg/dL POC Glucose (70-105) Lactic Acid 4.70 H* (0.7-2.0) mmol/L Calcium 7.0 L (8.4-10.2) mg/dL Phosphorus (2.5-4.5) mg/dL Magnesium (1.7-2.3) mg/dL Troponin T (0.00-0.029) ng/mL Triglycerides (2-149) mg/dL Cholesterol (50-199) mg/dL LDL Cholesterol Direct (50-130) mg/dL Urine WBC (Auto) (0.0-6.0) /HPF U Epithel Cells (Auto) (0-13.0) /HPF Urine Creatinine (0.1-20.0) mg/dL 08/01/18 08/01/18 08/01/18 Range/Units 20:46 21:17 22:02 WBC (4.5-11.0) K/mm3 RBC (3.65-5.03) M/mm3 Hgb (10.1-14.3) gm/dl Hct (30.3-42.9) % MCV (79-97) fl MCH (28-32) pg MCHC (30-34) % RDW (13.2-15.2) % Seg Neuts % (Manual) (40.0-70.0) % Lymphocytes % (Manual) (13.4-35.0) % Seg Neutrophils # (1.8-7.7) K/mm3 Seg Neutrophils # Man (1.8-7.7) K/mm3 Lymphocytes # (Manual) (1.2-5.4) K/mm3 Monocytes # (Manual) (0.0-0.8) K/mm3 VBG pH (7.320-7.420) Sodium (137-145) mmol/L Potassium (3.6-5.0) mmol/L Chloride (98-107) mmol/L Carbon Dioxide (22-30) mmol/L BUN (7-17) mg/dL Creatinine (0.7-1.2) mg/dL Glucose (65-100) mg/dL POC Glucose > 500 H > 500 H (70-105) Lactic Acid 4.90 H* (0.7-2.0) mmol/L Calcium (8.4-10.2) mg/dL Phosphorus (2.5-4.5) mg/dL Magnesium (1.7-2.3) mg/dL Troponin T (0.00-0.029) ng/mL Triglycerides (2-149) mg/dL Cholesterol (50-199) mg/dL LDL Cholesterol Direct (50-130) mg/dL Urine WBC (Auto) (0.0-6.0) /HPF U Epithel Cells (Auto) (0-13.0) /HPF Urine Creatinine (0.1-20.0) mg/dL 08/01/18 08/01/18 08/01/18 Range/Units 23:00 23:38 23:38 WBC (4.5-11.0) K/mm3 RBC (3.65-5.03) M/mm3 Hgb (10.1-14.3) gm/dl Hct (30.3-42.9) % MCV (79-97) fl MCH (28-32) pg MCHC (30-34) % RDW (13.2-15.2) % Seg Neuts % (Manual) (40.0-70.0) % Lymphocytes % (Manual) (13.4-35.0) % Seg Neutrophils # (1.8-7.7) K/mm3 Seg Neutrophils # Man (1.8-7.7) K/mm3 Lymphocytes # (Manual) (1.2-5.4) K/mm3 Monocytes # (Manual) (0.0-0.8) K/mm3 VBG pH (7.320-7.420) Sodium (137-145) mmol/L Potassium (3.6-5.0) mmol/L Chloride (98-107) mmol/L Carbon Dioxide 16 L (22-30) mmol/L BUN 52 H (7-17) mg/dL Creatinine 3.7 H (0.7-1.2) mg/dL Glucose 864 H* (65-100) mg/dL POC Glucose > 500 H (70-105) Lactic Acid (0.7-2.0) mmol/L Calcium 6.9 L (8.4-10.2) mg/dL Phosphorus (2.5-4.5) mg/dL Magnesium (1.7-2.3) mg/dL Troponin T 0.167 H* D (0.00-0.029) ng/mL Triglycerides (2-149) mg/dL Cholesterol (50-199) mg/dL LDL Cholesterol Direct (50-130) mg/dL Urine WBC (Auto) (0.0-6.0) /HPF U Epithel Cells (Auto) (0-13.0) /HPF Urine Creatinine (0.1-20.0) mg/dL 08/01/18 08/01/18 08/02/18 Range/Units 23:38 Unknown 00:01 WBC (4.5-11.0) K/mm3 RBC (3.65-5.03) M/mm3 Hgb (10.1-14.3) gm/dl Hct (30.3-42.9) % MCV (79-97) fl MCH (28-32) pg MCHC (30-34) % RDW (13.2-15.2) % Seg Neuts % (Manual) (40.0-70.0) % Lymphocytes % (Manual) (13.4-35.0) % Seg Neutrophils # (1.8-7.7) K/mm3 Seg Neutrophils # Man (1.8-7.7) K/mm3 Lymphocytes # (Manual) (1.2-5.4) K/mm3 Monocytes # (Manual) (0.0-0.8) K/mm3 VBG pH (7.320-7.420) Sodium (137-145) mmol/L Potassium (3.6-5.0) mmol/L Chloride (98-107) mmol/L Carbon Dioxide (22-30) mmol/L BUN (7-17) mg/dL Creatinine (0.7-1.2) mg/dL Glucose (65-100) mg/dL POC Glucose > 500 H (70-105) Lactic Acid 6.20 H* (0.7-2.0) mmol/L Calcium (8.4-10.2) mg/dL Phosphorus (2.5-4.5) mg/dL Magnesium (1.7-2.3) mg/dL Troponin T (0.00-0.029) ng/mL Triglycerides (2-149) mg/dL Cholesterol (50-199) mg/dL LDL Cholesterol Direct (50-130) mg/dL Urine WBC (Auto) (0.0-6.0) /HPF U Epithel Cells (Auto) (0-13.0) /HPF Urine Creatinine 45.9 H (0.1-20.0) mg/dL 08/02/18 08/02/18 08/02/18 Range/Units 01:11 02:06 02:06 WBC (4.5-11.0) K/mm3 RBC (3.65-5.03) M/mm3 Hgb (10.1-14.3) gm/dl Hct (30.3-42.9) % MCV (79-97) fl MCH (28-32) pg MCHC (30-34) % RDW (13.2-15.2) % Seg Neuts % (Manual) (40.0-70.0) % Lymphocytes % (Manual) (13.4-35.0) % Seg Neutrophils # (1.8-7.7) K/mm3 Seg Neutrophils # Man (1.8-7.7) K/mm3 Lymphocytes # (Manual) (1.2-5.4) K/mm3 Monocytes # (Manual) (0.0-0.8) K/mm3 VBG pH (7.320-7.420) Sodium 147 H (137-145) mmol/L Potassium 3.5 L (3.6-5.0) mmol/L Chloride (98-107) mmol/L Carbon Dioxide 18 L (22-30) mmol/L BUN 52 H (7-17) mg/dL Creatinine 3.4 H (0.7-1.2) mg/dL Glucose 526 H* (65-100) mg/dL POC Glucose > 500 H (70-105) Lactic Acid (0.7-2.0) mmol/L Calcium 7.0 L (8.4-10.2) mg/dL Phosphorus (2.5-4.5) mg/dL Magnesium (1.7-2.3) mg/dL Troponin T 0.128 H* D (0.00-0.029) ng/mL Triglycerides (2-149) mg/dL Cholesterol (50-199) mg/dL LDL Cholesterol Direct (50-130) mg/dL Urine WBC (Auto) (0.0-6.0) /HPF U Epithel Cells (Auto) (0-13.0) /HPF Urine Creatinine (0.1-20.0) mg/dL 08/02/18 08/02/18 08/02/18 Range/Units 02:06 02:12 02:54 WBC (4.5-11.0) K/mm3 RBC (3.65-5.03) M/mm3 Hgb (10.1-14.3) gm/dl Hct (30.3-42.9) % MCV (79-97) fl MCH (28-32) pg MCHC (30-34) % RDW (13.2-15.2) % Seg Neuts % (Manual) (40.0-70.0) % Lymphocytes % (Manual) (13.4-35.0) % Seg Neutrophils # (1.8-7.7) K/mm3 Seg Neutrophils # Man (1.8-7.7) K/mm3 Lymphocytes # (Manual) (1.2-5.4) K/mm3 Monocytes # (Manual) (0.0-0.8) K/mm3 VBG pH (7.320-7.420) Sodium (137-145) mmol/L Potassium (3.6-5.0) mmol/L Chloride (98-107) mmol/L Carbon Dioxide (22-30) mmol/L BUN (7-17) mg/dL Creatinine (0.7-1.2) mg/dL Glucose (65-100) mg/dL POC Glucose 497 H 474 H (70-105) Lactic Acid 7.50 H* (0.7-2.0) mmol/L Calcium (8.4-10.2) mg/dL Phosphorus (2.5-4.5) mg/dL Magnesium (1.7-2.3) mg/dL Troponin T (0.00-0.029) ng/mL Triglycerides (2-149) mg/dL Cholesterol (50-199) mg/dL LDL Cholesterol Direct (50-130) mg/dL Urine WBC (Auto) (0.0-6.0) /HPF U Epithel Cells (Auto) (0-13.0) /HPF Urine Creatinine (0.1-20.0) mg/dL 08/02/18 08/02/18 08/02/18 Range/Units 03:46 03:46 04:09 WBC 16.8 H (4.5-11.0) K/mm3 RBC 2.84 L (3.65-5.03) M/mm3 Hgb 7.5 L (10.1-14.3) gm/dl Hct 26.1 L (30.3-42.9) % MCV (79-97) fl MCH 26 L (28-32) pg MCHC 29 L (30-34) % RDW 22.8 H (13.2-15.2) % Seg Neuts % (Manual) 86.0 H (40.0-70.0) % Lymphocytes % (Manual) 5.0 L (13.4-35.0) % Seg Neutrophils # 15.4 H (1.8-7.7) K/mm3 Seg Neutrophils # Man 14.4 H (1.8-7.7) K/mm3 Lymphocytes # (Manual) 0.8 L (1.2-5.4) K/mm3 Monocytes # (Manual) (0.0-0.8) K/mm3 VBG pH (7.320-7.420) Sodium (137-145) mmol/L Potassium (3.6-5.0) mmol/L Chloride (98-107) mmol/L Carbon Dioxide 13 L (22-30) mmol/L BUN 53 H (7-17) mg/dL Creatinine 3.4 H (0.7-1.2) mg/dL Glucose 829 H* (65-100) mg/dL POC Glucose 287 H (70-105) Lactic Acid (0.7-2.0) mmol/L Calcium 7.0 L (8.4-10.2) mg/dL Phosphorus (2.5-4.5) mg/dL Magnesium (1.7-2.3) mg/dL Troponin T (0.00-0.029) ng/mL Triglycerides (2-149) mg/dL Cholesterol (50-199) mg/dL LDL Cholesterol Direct (50-130) mg/dL Urine WBC (Auto) (0.0-6.0) /HPF U Epithel Cells (Auto) (0-13.0) /HPF Urine Creatinine (0.1-20.0) mg/dL 08/02/18 08/02/18 08/02/18 Range/Units 04:57 05:04 06:10 WBC (4.5-11.0) K/mm3 RBC (3.65-5.03) M/mm3 Hgb (10.1-14.3) gm/dl Hct (30.3-42.9) % MCV (79-97) fl MCH (28-32) pg MCHC (30-34) % RDW (13.2-15.2) % Seg Neuts % (Manual) (40.0-70.0) % Lymphocytes % (Manual) (13.4-35.0) % Seg Neutrophils # (1.8-7.7) K/mm3 Seg Neutrophils # Man (1.8-7.7) K/mm3 Lymphocytes # (Manual) (1.2-5.4) K/mm3 Monocytes # (Manual) (0.0-0.8) K/mm3 VBG pH (7.320-7.420) Sodium (137-145) mmol/L Potassium (3.6-5.0) mmol/L Chloride (98-107) mmol/L Carbon Dioxide (22-30) mmol/L BUN (7-17) mg/dL Creatinine (0.7-1.2) mg/dL Glucose (65-100) mg/dL POC Glucose 194 H 117 H (70-105) Lactic Acid 6.40 H* (0.7-2.0) mmol/L Calcium (8.4-10.2) mg/dL Phosphorus (2.5-4.5) mg/dL Magnesium (1.7-2.3) mg/dL Troponin T (0.00-0.029) ng/mL Triglycerides (2-149) mg/dL Cholesterol (50-199) mg/dL LDL Cholesterol Direct (50-130) mg/dL Urine WBC (Auto) (0.0-6.0) /HPF U Epithel Cells (Auto) (0-13.0) /HPF Urine Creatinine (0.1-20.0) mg/dL 08/02/18 08/02/18 08/02/18 Range/Units 07:33 09:24 09:30 WBC (4.5-11.0) K/mm3 RBC (3.65-5.03) M/mm3 Hgb (10.1-14.3) gm/dl Hct (30.3-42.9) % MCV (79-97) fl MCH (28-32) pg MCHC (30-34) % RDW (13.2-15.2) % Seg Neuts % (Manual) (40.0-70.0) % Lymphocytes % (Manual) (13.4-35.0) % Seg Neutrophils # (1.8-7.7) K/mm3 Seg Neutrophils # Man (1.8-7.7) K/mm3 Lymphocytes # (Manual) (1.2-5.4) K/mm3 Monocytes # (Manual) (0.0-0.8) K/mm3 VBG pH (7.320-7.420) Sodium 152 H D (137-145) mmol/L Potassium (3.6-5.0) mmol/L Chloride 113.0 H (98-107) mmol/L Carbon Dioxide (22-30) mmol/L BUN 50 H (7-17) mg/dL Creatinine 3.3 H (0.7-1.2) mg/dL Glucose 216 H (65-100) mg/dL POC Glucose 50 L 267 H (70-105) Lactic Acid (0.7-2.0) mmol/L Calcium 7.0 L (8.4-10.2) mg/dL Phosphorus (2.5-4.5) mg/dL Magnesium (1.7-2.3) mg/dL Troponin T (0.00-0.029) ng/mL Triglycerides (2-149) mg/dL Cholesterol (50-199) mg/dL LDL Cholesterol Direct (50-130) mg/dL Urine WBC (Auto) (0.0-6.0) /HPF U Epithel Cells (Auto) (0-13.0) /HPF Urine Creatinine (0.1-20.0) mg/dL 08/02/18 08/02/18 Range/Units 10:11 11:20 WBC (4.5-11.0) K/mm3 RBC (3.65-5.03) M/mm3 Hgb (10.1-14.3) gm/dl Hct (30.3-42.9) % MCV (79-97) fl MCH (28-32) pg MCHC (30-34) % RDW (13.2-15.2) % Seg Neuts % (Manual) (40.0-70.0) % Lymphocytes % (Manual) (13.4-35.0) % Seg Neutrophils # (1.8-7.7) K/mm3 Seg Neutrophils # Man (1.8-7.7) K/mm3 Lymphocytes # (Manual) (1.2-5.4) K/mm3 Monocytes # (Manual) (0.0-0.8) K/mm3 VBG pH (7.320-7.420) Sodium (137-145) mmol/L Potassium (3.6-5.0) mmol/L Chloride (98-107) mmol/L Carbon Dioxide (22-30) mmol/L BUN (7-17) mg/dL Creatinine (0.7-1.2) mg/dL Glucose (65-100) mg/dL POC Glucose 232 H 209 H (70-105) Lactic Acid (0.7-2.0) mmol/L Calcium (8.4-10.2) mg/dL Phosphorus (2.5-4.5) mg/dL Magnesium (1.7-2.3) mg/dL Troponin T (0.00-0.029) ng/mL Triglycerides (2-149) mg/dL Cholesterol (50-199) mg/dL LDL Cholesterol Direct (50-130) mg/dL Urine WBC (Auto) (0.0-6.0) /HPF U Epithel Cells (Auto) (0-13.0) /HPF Urine Creatinine (0.1-20.0) mg/dL - Imaging and Cardiology Chest x-ray: image reviewed (clear with aortic valve in place) Assessment and Plan 48 y/o female with severe metabolic acidosis secondary to DKA 1. IVF's and NPO 2. Continue Insulin drip 3. Restart home meds. Can take medications PO 4. Appears to have history of heart failure/fluid retention. Hold on lasix therapy for right now given renal failure from volume depletion but be mindful of I/O during hospital stay 5. Guarded prognosis CCT 31 minutes.
[2018-08-02] MEDS: D5W 1,000 ML IV SCH (12:34)
--- NOTE | 2018-08-02 12:55 | Progress Note ---
Assessment and Plan Assessment and plan: 48 year old woman with history of hypertension, that has posed mechanical mitral valve, diabetes who presents to the hospital philanthropy and altered mental status, she has not been adherents all her medications. Diagnosis SIRS Dka Dehydration Hypernatremia coagulopathy due to Coumadin status post mechanical mitral valve Acute renal failure due to Vasomotor nephropathy Plan Cont Insulin GTT and d5w Cont IVF, Check Coags, and restart warfarin if INR is less than 2.5 Optimize meds CCT 33 mins History Interval history: no vomiting coughing up small amounts of blood no RODRIGUEZ, no fever no longer confused no sob, Hospitalist Physical - Constitutional Vitals: Temp Pulse Resp BP Pulse Ox 98.7 F 90 18 160/65 100 08/02/18 08:00 08/02/18 11:05 08/02/18 10:41 08/02/18 10:41 08/02/18 10:41 General appearance: Present: no acute distress, cachectic, disheveled - EENT Eyes: Present: PERRL ENT: hearing intact - Neck Neck: Present: supple - Respiratory Respiratory effort: normal Respiratory: bilateral: CTA - Cardiovascular Rhythm: regular Heart Sounds: Present: S1 & S2 - Extremities Extremities: no ischemia Peripheral Pulses: within normal limits - Abdominal General gastrointestinal: soft, non-tender - Integumentary Integumentary: Present: clear, warm - Psychiatric Psychiatric: appropriate mood/affect, intact judgment & insight - Neurologic Neurologic: CNII-XII intact Results - Labs CBC & Chem 7: 08/03/18 21:08 08/03/18 21:08 Labs: Laboratory Last Values WBC 16.8 K/mm3 (4.5-11.0) H 08/02/18 03:46 RBC 2.84 M/mm3 (3.65-5.03) L 08/02/18 03:46 Hgb 7.5 gm/dl (10.1-14.3) L 08/02/18 03:46 Hct 26.1 % (30.3-42.9) L 08/02/18 03:46 MCV 92 fl (79-97) 08/02/18 03:46 MCH 26 pg (28-32) L 08/02/18 03:46 MCHC 29 % (30-34) L 08/02/18 03:46 RDW 22.8 % (13.2-15.2) H 08/02/18 03:46 Plt Count 334 K/mm3 (140-440) 08/02/18 03:46 [place] % (Auto) 3.9 % (0.0-7.3) 08/02/18 03:46 Eos % (Auto) 0.2 % (0.0-4.3) 08/02/18 03:46 [place] # 0.7 K/mm3 (0.0-0.8) 08/02/18 03:46 Eos # 0.0 K/mm3 (0.0-0.4) 08/02/18 03:46 Baso # 0.1 K/mm3 (0.0-0.1) 08/02/18 03:46 Add Manual Diff Complete 08/02/18 03:46 Total Counted 100 08/02/18 03:46 Seg Neutrophils % Lubrication Servicer 08/01/18 20:46 Seg Neuts % (Manual) 86.0 % (40.0-70.0) H 08/02/18 03:46 Band Neutrophils % 4.0 % 08/02/18 03:46 Lymphocytes % (Manual) 5.0 % (13.4-35.0) L 08/02/18 03:46 Reactive Lymphs % (Man) 0 % 08/02/18 03:46 Monocytes % (Manual) 5.0 % (0.0-7.3) 08/02/18 03:46 Eosinophils % (Manual) 0 % (0.0-4.3) 08/02/18 03:46 Basophils % (Manual) 0 % (0.0-1.8) 08/02/18 03:46 Metamyelocytes % 0 % 08/02/18 03:46 Myelocytes % 0 % 08/02/18 03:46 Promyelocytes % 0 % 08/02/18 03:46 Blast Cells % 0 % 08/02/18 03:46 Nucleated RBC % Not Reportable 08/02/18 03:46 Seg Neutrophils # 15.4 K/mm3 (1.8-7.7) H 08/02/18 03:46 Seg Neutrophils # Man 14.4 K/mm3 (1.8-7.7) H 08/02/18 03:46 Band Neutrophils # 0.7 K/mm3 08/02/18 03:46 Lymphocytes # (Manual) 0.8 K/mm3 (1.2-5.4) L 08/02/18 03:46 Abs React Lymphs (Man) 0.0 K/mm3 08/02/18 03:46 Monocytes # (Manual) 0.8 K/mm3 (0.0-0.8) 08/02/18 03:46 Eosinophils # (Manual) 0.0 K/mm3 (0.0-0.4) 08/02/18 03:46 Basophils # (Manual) 0.0 K/mm3 (0.0-0.1) 08/02/18 03:46 Metamyelocytes # 0.0 K/mm3 08/02/18 03:46 Myelocytes # 0.0 K/mm3 08/02/18 03:46 Promyelocytes # 0.0 K/mm3 08/02/18 03:46 Blast Cells # 0.0 K/mm3 08/02/18 03:46 WBC Morphology Not Reportable 08/02/18 03:46 Hypersegmented Neuts Not Reportable 08/02/18 03:46 Hyposegmented Neuts Not Reportable 08/02/18 03:46 Hypogranular Neuts Not Reportable 08/02/18 03:46 Smudge Cells Not Reportable 08/02/18 03:46 Toxic Granulation Not Reportable 08/02/18 03:46 Toxic Vacuolation Not Reportable 08/02/18 03:46 Dohle Bodies Not Reportable 08/02/18 03:46 Pel[place]-Huet Anomaly Not Reportable 08/02/18 03:46 Mary Rods Not Reportable 08/02/18 03:46 Platelet Estimate Consistent w auto 08/02/18 03:46 Clumped Platelets Not Reportable 08/02/18 03:46 Plt Clumps, EDTA Not Reportable 08/02/18 03:46 Large Platelets Not Reportable 08/02/18 03:46 Giant Platelets Not Reportable 08/02/18 03:46 Platelet Satelliting Not Reportable 08/02/18 03:46 Plt Morphology Comment Not Reportable 08/02/18 03:46 RBC Morphology Not Reportable 08/02/18 03:46 Dimorphic RBCs Not Reportable 08/02/18 03:46 Polychromasia Not Reportable 08/02/18 03:46 Hypochromasia 1+ 08/02/18 03:46 Poikilocytosis Not Reportable 08/02/18 03:46 Anisocytosis 1+ 08/02/18 03:46 Microcytosis Not Reportable 08/02/18 03:46 Macrocytosis Not Reportable 08/02/18 03:46 Spherocytes Not Reportable 08/02/18 03:46 Pappenheimer Bodies Not Reportable 08/02/18 03:46 Sickle Cells Not Reportable 08/02/18 03:46 Target Cells Not Reportable 08/02/18 03:46 Tear Drop Cells Not Reportable 08/02/18 03:46 Ovalocytes Not Reportable 08/02/18 03:46 Helmet Cells Not Reportable 08/02/18 03:46 [place] Bodies Not Reportable 08/02/18 03:46 [place] Rings Not Reportable 08/02/18 03:46 [place] Cells Not Reportable 08/02/18 03:46 Bite Cells Not Reportable 08/02/18 03:46 Crenated Cell Few 08/02/18 03:46 Elliptocytes Not Reportable 08/02/18 03:46 Acanthocytes (Spur) Not Reportable 08/02/18 03:46 Rouleaux Not Reportable 08/02/18 03:46 Hemoglobin C Crystals Not Reportable 08/02/18 03:46 Schistocytes Not Reportable 08/02/18 03:46 Malaria parasites Not Reportable 08/02/18 03:46 Michael Bodies Not Reportable 08/02/18 03:46 Hem Pathologist Commnt No 08/02/18 03:46 VBG pH 6.903 (7.320-7.420) L* 08/01/18 16:17 Sodium 152 mmol/L (137-145) H D 08/02/18 09:30 Potassium 4.5 mmol/L (3.6-5.0) 08/02/18 09:30 Chloride 113.0 mmol/L (98-107) H 08/02/18 09:30 Carbon Dioxide 24 mmol/L (22-30) D 08/02/18 09:30 Anion Gap 20 mmol/L 08/02/18 09:30 BUN 50 mg/dL (7-17) H 08/02/18 09:30 Creatinine 3.3 mg/dL (0.7-1.2) H 08/02/18 09:30 Estimated GFR 18 ml/min 08/02/18 09:30 BUN/Creatinine Ratio 15 % 08/02/18 09:30 Glucose 216 mg/dL (65-100) H 08/02/18 09:30 POC Glucose 168 (70-105) H 08/02/18 12:07 Lactic Acid 1.70 mmol/L (0.7-2.0) 08/02/18 09:30 Calcium 7.0 mg/dL (8.4-10.2) L 08/02/18 09:30 Phosphorus 12.70 mg/dL (2.5-4.5) H 08/01/18 17:54 Magnesium 3.00 mg/dL (1.7-2.3) H 08/01/18 17:54 Troponin T 0.128 ng/mL (0.00-0.029) H* D 08/02/18 02:06 Triglycerides 279 mg/dL (2-149) H 08/01/18 16:17 Cholesterol 229 mg/dL (50-199) H 08/01/18 16:17 LDL Cholesterol Direct 154 mg/dL (50-130) H 08/01/18 16:17 HDL Cholesterol 47 mg/dL (40-59) 08/01/18 16:17 Cholesterol/HDL Ratio 4.87 % 08/01/18 16:17 Lipase 43 units/L (13-60) 08/01/18 16:17 Urine Color Yellow (Yellow) 08/01/18 17:15 Urine Turbidity Cloudy (Clear) 08/01/18 17:15 Urine pH 5.0 (5.0-7.0) 08/01/18 17:15 Ur Specific [place] 1.021 (1.003-1.030) 08/01/18 17:15 Urine Protein 100 mg/dl mg/dL (Negative) 08/01/18 17:15 Urine Glucose (UA) >=500 mg/dL (Negative) 08/01/18 17:15 Urine Ketones 20 mg/dL (Negative) 08/01/18 17:15 Urine Blood Mod (Negative) 08/01/18 17:15 Urine Nitrite Neg (Negative) 08/01/18 17:15 Urine Bilirubin Neg (Negative) 08/01/18 17:15 Urine Urobilinogen < 2.0 mg/dL (<2.0) 08/01/18 17:15 Ur Leukocyte Esterase Neg (Negative) 08/01/18 17:15 Urine WBC (Auto) 17.0 /HPF (0.0-6.0) H 08/01/18 17:15 Urine RBC (Auto) 4.0 /HPF (0.0-6.0) 08/01/18 17:15 U Epithel Cells (Auto) 23.0 /HPF (0-13.0) H 08/01/18 17:15 Urine Bacteria (Auto) 1+ /HPF (Negative) 08/01/18 17:15 Urine Mucus Few /HPF 08/01/18 17:15 Urine Yeast (Budding) 2+ /HPF 08/01/18 17:15 Urine Creatinine 45.9 mg/dL (0.1-20.0) H 08/01/18 Unknown Urine Sodium 23 mmol/L 08/01/18 Unknown Nutrition/Malnutrition Assess - Dietary Evaluation Nutrition/Malnutrition Findings: Nutrition Notes Start: 08/02/18 10:23 Freq: Status: Active Protocol: Document 08/02/18 10:23 CP (Rec: 08/02/18 10:38 CP [id number]) Co-Sign 08/02/18 10:23 LP Nutrition Notes 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 Pt. is NPO d/t DKA protocol. Pt. was in pain at time of visit, and couldn't speak. Percent of energy/protein needs met: 0%/0% Burn Absent Trauma Absent #1 Nutrition Diagnosis Inadequate oral intake Etiology DKA As Evidenced by Signs and Symptoms NPO status Is patient on ventilator? No Is Patient Ambulatory and/or Out of Bed No REE-([place]-confined to bed) [phone] Calculation Used for Recommendations [place] Additional Notes PRO: 54-91g (1.2-2 g/kg) Fluid: 1mL/hr Nutrition Intervention Change Diet Order: Per MD request Teaching Recipient Patient Learning Readiness Poor Teaching Methods Discussion Handout Response to Teaching Unable to return demo Education Handouts Provided Carbohydrate Counting Barriers to Learning Physical RD phone number provided Yes Patient aware of follow up options Yes Actions To Overcome Barriers Other Goal #1 Diet advancement when feasible Goal #2 PO intake to meet at least 80% of energy and protein needs. Anticipated Discharge Needs: Unable to determine at this time. Follow-Up By: 08/04/18 Additional Comments F/U: Diet advancement
[2018-08-02] MEDS ORDERED: PEPCID IV SCH (13:00)
[2018-08-02 18:09] LABS: Calcium 7.1 mg/dL (8.4-10.2)
[2018-08-02 20:17] LABS: INR > 17.67 (0.87-1.13); Partial Thromboplastin Time 63.2 Sec. (24.2-36.6)
[2018-08-02 21:37] LABS: INR 14.11 (0.87-1.13); Partial Thromboplastin Time 62.2 Sec. (24.2-36.6)
[2018-08-02 21:38] LABS: INR 14.68 (0.87-1.13)
[2018-08-02] MEDS: SODIUM CHLORIDE FLUSH SYRINGE 10 ML IV SCH (22:00)
[2018-08-03] MEDS: D5W 1,000 ML IV SCH ×3 (00:14→15:50)
[2018-08-03] MEDS: SODIUM CHLORIDE FLUSH SYRINGE 10 ML IV SCH ×3 (02:19→22:10)
[2018-08-03] MEDS: ZOSYN/NS 2.25 GM/50ML 2.25 GM/50 ML BAG IV SCH (05:35)
[2018-08-03] MEDS: HumuLIN R 100 UNITS in NACL 0.9% 99 ML IV SCH (06:03)
[2018-08-03 08:43] LABS: Basophils # (Auto) 0.1 K/mm3 (0.0-0.1); Basophils % (Auto) 0.4 % (0.0-1.8); Eosinophils # (Auto) 0.1 K/mm3 (0.0-0.4); Eosinophils % (Auto) 0.8 % (0.0-4.3); Hemoglobin 6.4 gm/dl (10.1-14.3); Lymphocytes # (Auto) 1.4 K/mm3 (1.2-5.4); Lymphocytes % (Auto) 10.5 % (13.4-35.0); Mean Corpuscular HGB Conc 32 % (30-34); Mean Corpuscular Volume 80 fl (79-97); Monocytes # (Auto) 0.5 K/mm3 (0.0-0.8); Monocytes % (Auto) 3.4 % (0.0-7.3); Platelet Count 234 K/mm3 (140-440); Red Blood Count 2.48 M/mm3 (3.65-5.03)
[2018-08-03 08:53] LABS: Red Cell Distribution Width 21.3 % (13.2-15.2)
[2018-08-03 08:55] LABS: Hematocrit 19.9 % (30.3-42.9)
[2018-08-03] MEDS ORDERED: MAGNESIUM SULFATE 1 GM in WATER FOR INJ (PF) 23 ML IV ONE (09:10)
[2018-08-03] MEDS ORDERED: SODIUM PHOSPHATE 45 MMOL in NACL 0.9% 500 ML 500 ML IV ONE (09:10)
[2018-08-03 09:23] LABS: INR 12.55 (0.87-1.13)
--- NOTE | 2018-08-03 09:24 | Progress Note ---
Subjective Interval history: Patient was seen today for follow-up on multiple renal related issues Events of this hospitalization noted She is feeling much better more alert awake Potassium noted to be low Renal function appears to be improving Patient denies having any chest pain pressure or shortness of breath Vitals labs intake output medications were reviewed Social history: Reviewed Allergies: Reviewed Family history: Reviewed Physical examination HEENT: Oral mucosa moist no pallor or icterus Neck: Supple no JVD Chest: Clear to auscultation anteriorly CVS: Regular rate and rhythm S1 and S2 heard Abdomen: Soft nontender no suprapubic masses no organomegaly appreciable Extremity: Dry skin less than 1+ peripheral edema Musculoskeletal: No joint effusion noted in knees and ankle Neurological: Alert awake Dermatology: No petechial rashes Psychiatry: No evidence of any agitation and aggression noted Assessment and plan Acute kidney injury mostly prerenal patient may have had a small component of acute tubular necrosis due to severe dehydration diabetic ketoacidosis Underlying chronic kidney disease creatinine was 2.2 in April 2018 Pseudohyponatremia currently better Patient is currently being followed by [facility], advised her to make an appointment upon discharge Will order for a renal ultrasonogram, previously has had possible obstructive uropathy ? Neurogenic bladder due to diabetes Renal function why she is improving creatinine is currently 2.6 she does not recall her baseline creatinine Hyperkalemia: Patient is currently hypokalemic, due to correction of diabetic ketoacidosis, she will need at least 20 mEq of potassium today Will give potassium chloride as well as potassium phosphate, as she is severely hypophosphatemic Hypomagnesemia currently being replaced Patient likely may be vitamin D deficient Patient was adequately counseled and educated regarding multiple renal related issues Pertinent lab findings were discussed with patient, patient does exhibit good understanding of renal issues We'll continue to follow and make recommendation from renal standpoint Objective - Vital Signs Vital signs: Vital Signs - 12hr 08/02/18 08/02/18 08/02/18 21:31 21:41 21:51 Temperature Pulse Rate 93 H 94 H 96 H Pulse Rate [ From Monitor] Respiratory 16 15 16 Rate Blood Pressure 136/83 136/83 136/83 O2 Sat by Pulse 98 99 98 Oximetry 08/02/18 08/02/18 08/02/18 22:00 22:11 22:21 Temperature Pulse Rate 95 H 93 H 93 H Pulse Rate [ From Monitor] Respiratory 15 16 17 Rate Blood Pressure 131/78 131/78 131/78 O2 Sat by Pulse 98 98 98 Oximetry 08/02/18 08/02/18 08/02/18 22:31 22:41 22:51 Temperature Pulse Rate 92 H 97 H 96 H Pulse Rate [ From Monitor] Respiratory 15 16 16 Rate Blood Pressure 136/83 136/83 136/83 O2 Sat by Pulse 99 99 100 Oximetry 08/02/18 08/02/18 08/02/18 23:00 23:10 23:21 Temperature Pulse Rate 96 H 96 H 95 H Pulse Rate [ From Monitor] Respiratory 15 17 15 Rate Blood Pressure 141/87 141/87 141/87 O2 Sat by Pulse 99 100 100 Oximetry 08/02/18 08/02/18 08/02/18 23:31 23:41 23:44 Temperature 98.2 F Pulse Rate 94 H 95 H Pulse Rate [ From Monitor] Respiratory 15 17 Rate Blood Pressure 141/87 141/87 O2 Sat by Pulse 100 100 Oximetry 08/02/18 08/03/18 08/03/18 23:51 00:00 00:11 Temperature Pulse Rate 97 H 98 H 96 H Pulse Rate [ 82 From Monitor] Respiratory 17 18 14 Rate Blood Pressure 141/87 152/89 152/89 O2 Sat by Pulse 100 100 100 Oximetry 08/03/18 08/03/18 08/03/18 00:19 00:21 00:23 Temperature Pulse Rate 93 H 94 H 94 H Pulse Rate [ From Monitor] Respiratory 15 15 9 L Rate Blood Pressure 152/89 152/89 152/89 O2 Sat by Pulse 100 100 100 Oximetry 08/03/18 08/03/18 08/03/18 00:31 00:41 00:51 Temperature Pulse Rate 93 H 96 H 94 H Pulse Rate [ From Monitor] Respiratory 16 14 12 Rate Blood Pressure 152/89 152/89 152/89 O2 Sat by Pulse 100 100 100 Oximetry 08/03/18 08/03/18 08/03/18 01:00 01:11 01:21 Temperature Pulse Rate 95 H 95 H 91 H Pulse Rate [ From Monitor] Respiratory 11 L 14 11 L Rate Blood Pressure 143/82 143/82 143/82 O2 Sat by Pulse 100 100 100 Oximetry 08/03/18 08/03/18 08/03/18 01:31 01:41 01:51 Temperature Pulse Rate 91 H 91 H 92 H Pulse Rate [ From Monitor] Respiratory 11 L 14 15 Rate Blood Pressure 152/89 152/89 152/89 O2 Sat by Pulse 100 100 100 Oximetry 08/03/18 08/03/18 08/03/18 02:00 02:11 02:21 Temperature Pulse Rate 92 H 94 H 96 H Pulse Rate [ From Monitor] Respiratory 15 16 16 Rate Blood Pressure 137/86 143/82 143/82 O2 Sat by Pulse 100 100 100 Oximetry 08/03/18 08/03/18 08/03/18 02:31 02:41 02:51 Temperature Pulse Rate 95 H 100 H 100 H Pulse Rate [ From Monitor] Respiratory 16 17 12 Rate Blood Pressure 143/82 143/82 143/82 O2 Sat by Pulse 99 99 100 Oximetry 08/03/18 08/03/18 08/03/18 03:01 03:11 03:21 Temperature Pulse Rate 94 H 92 H 92 H Pulse Rate [ From Monitor] Respiratory 16 9 L 12 Rate Blood Pressure 138/94 138/94 138/94 O2 Sat by Pulse 97 100 100 Oximetry 08/03/18 08/03/18 08/03/18 03:31 03:41 03:51 Temperature Pulse Rate 91 H 93 H 93 H Pulse Rate [ From Monitor] Respiratory 14 16 17 Rate Blood Pressure 138/94 138/94 138/94 O2 Sat by Pulse 100 100 100 Oximetry 08/03/18 08/03/18 08/03/18 04:00 04:11 04:21 Temperature 98.8 F Pulse Rate 93 H 93 H 89 Pulse Rate [ 72 From Monitor] Respiratory 15 16 17 Rate Blood Pressure 121/58 121/58 121/58 O2 Sat by Pulse 100 100 99 Oximetry 08/03/18 08/03/18 08/03/18 04:31 04:41 04:51 Temperature Pulse Rate 90 86 86 Pulse Rate [ From Monitor] Respiratory 15 15 15 Rate Blood Pressure 121/58 121/58 121/58 O2 Sat by Pulse 99 99 99 Oximetry 08/03/18 08/03/18 08/03/18 05:00 05:11 05:21 Temperature Pulse Rate 88 93 H 98 H Pulse Rate [ From Monitor] Respiratory 14 17 14 Rate Blood Pressure 147/84 147/84 147/84 O2 Sat by Pulse 100 100 100 Oximetry 08/03/18 08/03/18 05:31 05:41 Temperature Pulse Rate 88 88 Pulse Rate [ From Monitor] Respiratory 15 15 Rate Blood Pressure 147/84 147/84 O2 Sat by Pulse 100 100 Oximetry - Lab 08/03/18 08:20 08/03/18 08:20 Most recent lab results Calcium 7.0 mg/dL (8.4-10.2) L 08/03/18 08:20 Phosphorus 1.30 mg/dL (2.5-4.5) L 08/03/18 08:20 Magnesium 1.70 mg/dL (1.7-2.3) 08/03/18 08:20 Urine Creatinine 45.9 mg/dL (0.1-20.0) H 08/01/18 Unknown Urine Sodium 23 mmol/L 08/01/18 Unknown Medications & Allergies - Medications Allergies/Adverse Reactions: Allergies No Known Allergies Allergy (Verified 12/03/16 23:01) Home Medications: Home Medications Medication Instructions Recorded Confirmed Last Taken Type Metoprolol [Lopressor TAB] 25 mg PO BID #60 tablet 12/29/16 01/29/17 Unknown Rx Famotidine [Pepcid] 20 mg PO DAILY #30 tablet 02/04/17 Unknown Rx Furosemide [Lasix TAB] 40 mg PO 0600,1800 #60 tablet 02/04/17 Unknown Rx Insulin NPH/Regular [NovoLIN 70/30] 18 unit SQ BIDDIAB #1 vial 02/04/17 Unknown Rx Metoprolol [Lopressor TAB] 50 mg PO TID #90 tablet 02/04/17 Unknown Rx Coumadin 08/02/18 Unknown History Active Medications: Generic Name Dose Route Start Last Admin Trade Name Freq PRN Reason Stop Dose Admin Albuterol 2.5 mg 08/01/18 17:42 Proventil IH Q3HRT PRN Shortness Of Breath Aspirin 325 mg 08/02/18 10:00 08/02/18 10:00 Ecotrin PO Not Given QDAY ULI Dextrose 0 ml 08/01/18 17:42 D50w (25gm) Syringe IV PRN PRN Hypoglycemia Famotidine 20 mg 08/02/18 10:00 08/02/18 10:00 Pepcid PO Not Given DAILY ULI Hydralazine HCl 10 mg 08/01/18 17:47 Apresoline IV TID PRN Hypertension Insulin Human Regular 100 100 mls @ 1 mls/hr 08/01/18 18:00 08/03/18 08:37 units/ Sodium Chloride IV 0 units/hr TITR ULI 0 mls/hr Titration Protocol 1 UNITS/HR Piperacillin Sod/Tazobactam Sod 2.25 gm in 50 mls @ 100 mls/hr 08/02/18 06:00 08/03/18 05:35 Zosyn/Ns 2.25 Gm/50ml IV 100 mls/hr Q8HR ULI Administration Dextrose 1,000 mls @ 125 mls/hr 08/02/18 13:00 08/03/18 03:04 D5w IV 125 mls/hr DIRECT ULI Administration Magnesium Sulfate 2 gm in 50 mls @ 25 mls/hr 08/03/18 10:00 Magnesium Sulfate 2gm/50ml IV 08/03/18 11:59 ONCE ONE Potassium Phosphate 20 mmol/ 256.6667 mls @ 125 mls/hr 08/03/18 10:00 Sodium Chloride IV 08/03/18 12:03 ONCE ONE Magnesium Sulfate 1 gm/ 25 mls @ 25 mls/hr 08/03/18 09:10 Sterile Water IV 08/03/18 10:09 ONCE ONE Sodium Chloride 500 mls @ 0 mls/hr 08/03/18 10:00 Nacl 0.9% 500 Ml IV 08/03/18 10:01 ONCE ONE As Directed Sodium Phosphate 45 mmol/ 515 mls @ 84 mls/hr 08/03/18 09:10 Sodium Chloride IV 08/03/18 15:17 ONCE ONE Phytonadione 5 mg 08/03/18 10:00 Vitamin K *Oral Liquid* PO 08/03/18 10:01 ONCE ONE Sodium Chloride 10 ml 08/01/18 22:00 08/03/18 02:19 Sodium Chloride Flush Syringe 10 Ml IV 10 ml BID ULI Administration Sodium Chloride 10 ml 08/01/18 17:42 Sodium Chloride Flush Syringe 10 Ml IV PRN PRN LINE FLUSH Sodium Chloride 10 ml 08/01/18 20:04 Sodium Chloride Flush Syringe 10 Ml IV PRN PRN LINE FLUSH Sodium Phosphate 250 mg 08/03/18 10:00 K-Phos Neutral PO QID ULI
[2018-08-03] MEDS: ECOTRIN PO SCH (09:38)
[2018-08-03] MEDS: PEPCID PO SCH (09:38)
[2018-08-03] MEDS ORDERED: VITAMIN K *ORAL LIQUID PO ONE (10:00)
[2018-08-03] MEDS ORDERED: NACL 0.9% 500 ML 500 ML IV ONE (10:00)
[2018-08-03] MEDS ORDERED: MAGNESIUM SULFATE 2GM/50ML 2 GM/50 ML BAG IV ONE (10:00)
[2018-08-03] MEDS ORDERED: KPHOS 20 MMOL in NACL 0.9% 250ML 250 ML IV ONE (10:00)
[2018-08-03] MEDS: K-PHOS NEUTRAL PO SCH ×4 (11:21→22:09)
--- NOTE | 2018-08-03 11:23 | Progress Note ---
Assessment and Plan Echo reviewed - EF 40%, mild to mod LVH, LA and RA dilated, mod TR and AR, mechanical valve in mitral position that appears to be functioning properly. Pt reports that at [facility] in 01/2018, she underwent valve replacement for "infection" in her blood and heart. She also describes veins being taken from her RLE and p laced on her heart. Additionally, per CXR, she appears to have left atrial appendage closure device in place. Will attempt to obtain medical records from [facility]. Pt reports that she has been taking coumadin since valve replacement and has been going to [facility] for INR monitoring - she went to coumadin clinic last week and was told INR was 2.7. INR noted to be >17 on admission. She is receiving vitamin K. H/H currently 6.4/19.9. PRBC tx ordered per primary. Cont present cardiac management, systemic AC held. She will ultimately require resumption of systemic AC once anemia stable and coagulopathy resolved if no contraindication. The patient has been seen in conjunction with Dr. Hong who agrees with the assessment and plan of care. - Patient Problems (1) DKA (diabetic ketoacidoses) Current Visit: Yes Status: Acute Qualifiers: Diabetes mellitus complication detail: with coma (2) Acute on chronic renal failure Current Visit: Yes Status: Acute (3) Acidosis Current Visit: Yes Status: Acute (4) Hyperkalemia Current Visit: Yes Status: Acute (5) Anemia Current Visit: Yes Status: Acute (6) Coagulopathy Current Visit: Yes Status: Acute (7) Elevated troponin Current Visit: Yes Status: Acute (8) Sepsis Current Visit: Yes Status: Acute Qualifiers: Sepsis type: sepsis due to unspecified organism Qualified Code(s): A41.9 - Sepsis, unspecified organism (9) Altered mental status Current Visit: Yes Status: Acute Qualifiers: Altered mental status type: unspecified Qualified Code(s): R41.82 - Altered mental status, unspecified (10) History of cardiac arrest Current Visit: Yes Status: Chronic (11) Diabetes Current Visit: Yes Status: Chronic (12) Cardiomyopathy Current Visit: Yes Status: Chronic Qualifiers: Cardiomyopathy type: unspecified Qualified Code(s): I42.9 - Cardiomyopathy, unspecified (13) Hypertension Current Visit: Yes Status: Chronic (14) H/O mitral valve replacement with mechanical valve Current Visit: Yes Status: Chronic (15) Medical non-compliance Current Visit: Yes Status: Chronic Subjective Date of service: 08/03/18 Principal diagnosis: DKA Interval history: pt resting in bed, more alert today, states she is feeling better. no current cardiac complaints. in SR on telemetry. Objective Last Vital Signs Temp 98.8 F 08/03/18 04:00 Pulse 89 08/03/18 10:21 Resp 14 08/03/18 10:21 BP 130/67 08/03/18 10:21 Pulse Ox 100 08/03/18 10:21 - Physical Examination General: No Apparent Distress HEENT: Positive: PERRL, Normocephaly, Mucus Membranes Moist Neck: Positive: neck supple, trachea midline Cardiac: Positive: Reg Rate and Rhythm, S1/S2 Lungs: Positive: Decreased Breath Sounds Neuro: Positive: Grossly Intact Abdomen: Negative: Tender Skin: Negative: Rash Musculoskeletal: No Pain Extremities: Absent: edema - Labs and Meds Coagulation 08/02/18 08/02/18 08/02/18 Range/Units 18:48 20:52 20:52 PT > 120.0 H 114.7 H 118.4 H (12.2-14.9) Sec. INR > 17.67 H* 14.11 H* 14.68 H* (0.87-1.13) APTT 63.2 H* 62.2 H* (24.2-36.6) Sec. 08/03/18 Range/Units 08:30 PT 104.4 H (12.2-14.9) Sec. INR 12.55 H* (0.87-1.13) APTT (24.2-36.6) Sec. CBC 08/03/18 Range/Units 08:20 WBC 13.6 H (4.5-11.0) K/mm3 RBC 2.48 L (3.65-5.03) M/mm3 Hgb 6.4 L (10.1-14.3) gm/dl Hct 19.9 L* D (30.3-42.9) % Plt Count 234 (140-440) K/mm3 Lymph # 1.4 (1.2-5.4) K/mm3 [place] # 0.5 (0.0-0.8) K/mm3 Eos # 0.1 (0.0-0.4) K/mm3 Baso # 0.1 (0.0-0.1) K/mm3 Comprehensive Metabolic Panel 08/02/18 08/02/18 08/03/18 Range/Units 13:16 17:43 08:20 Sodium 151 H 150 H 147 H (137-145) mmol/L Potassium 4.0 3.5 L 3.4 L (3.6-5.0) mmol/L Chloride 113.9 H 113.8 H 112.1 H (98-107) mmol/L Carbon Dioxide 24 25 24 (22-30) mmol/L BUN 50 H 49 H 39 H (7-17) mg/dL Creatinine 3.3 H 3.0 H 2.6 H (0.7-1.2) mg/dL Glucose 196 H 112 H 99 (65-100) mg/dL Calcium 7.0 L 7.1 L 7.0 L (8.4-10.2) mg/dL - Imaging and Cardiology EKG: report reviewed, image reviewed Echo: report reviewed (11/2016 showed EF 40-45%, abnormal diastolic function, trace MR, mild TR, RVSP 36mmHg. ) - Telemetry EKG Rhythm: Sinus Rhythm - EKG Sinus rhythms and dysrhythmias: sinus rhythm
--- NOTE | 2018-08-03 11:25 | Progress Note ---
Assessment and Plan 48 y/o female with severe metabolic acidosis secondary to DKA 1. Anion gap is now closed. Start long acting insulin and feed patient 2. Will need H/H's q6 hours. 3. INR is drifiting down. Given mechanical valve would not reverse unless the patient is hemodynamically unstable from bleeding 4. Currently BP is stable. Hemoglobin is less than 7. Does not appear symptomatic. Inclined to watch until noon labs drawn but do need to consider transfusion. If done, would need lasix therapy in between units. 5. Daily INR's. 6. Hold all anticoagulation as of right now. CCT 31 minutes. Subjective Date of service: 08/03/18 Interval history: INR is severely elevated and H/H down this am. No overt signs of bleeding. Per patient had normal brown stool this am. Has aortic valve that was placed at [place] in January of 2018 Objective - Constitutional Vitals: Vital Signs - 12hr 08/02/18 08/02/18 08/02/18 23:21 23:31 23:41 Temperature Pulse Rate 95 H 94 H 95 H Pulse Rate [ From Monitor] Respiratory 15 15 17 Rate Blood Pressure 141/87 141/87 141/87 O2 Sat by Pulse 100 100 100 Oximetry 08/02/18 08/02/18 08/03/18 23:44 23:51 00:00 Temperature 98.2 F Pulse Rate 97 H 98 H Pulse Rate [ 82 From Monitor] Respiratory 17 18 Rate Blood Pressure 141/87 152/89 O2 Sat by Pulse 100 100 Oximetry 08/03/18 08/03/18 08/03/18 00:11 00:19 00:21 Temperature Pulse Rate 96 H 93 H 94 H Pulse Rate [ From Monitor] Respiratory 14 15 15 Rate Blood Pressure 152/89 152/89 152/89 O2 Sat by Pulse 100 100 100 Oximetry 08/03/18 08/03/18 08/03/18 00:23 00:31 00:41 Temperature Pulse Rate 94 H 93 H 96 H Pulse Rate [ From Monitor] Respiratory 9 L 16 14 Rate Blood Pressure 152/89 152/89 152/89 O2 Sat by Pulse 100 100 100 Oximetry 08/03/18 08/03/18 08/03/18 00:51 01:00 01:11 Temperature Pulse Rate 94 H 95 H 95 H Pulse Rate [ From Monitor] Respiratory 12 11 L 14 Rate Blood Pressure 152/89 143/82 143/82 O2 Sat by Pulse 100 100 100 Oximetry 08/03/18 08/03/18 08/03/18 01:21 01:31 01:41 Temperature Pulse Rate 91 H 91 H 91 H Pulse Rate [ From Monitor] Respiratory 11 L 11 L 14 Rate Blood Pressure 143/82 152/89 152/89 O2 Sat by Pulse 100 100 100 Oximetry 08/03/18 08/03/18 08/03/18 01:51 02:00 02:11 Temperature Pulse Rate 92 H 92 H 94 H Pulse Rate [ From Monitor] Respiratory 15 15 16 Rate Blood Pressure 152/89 137/86 143/82 O2 Sat by Pulse 100 100 100 Oximetry 08/03/18 08/03/18 08/03/18 02:21 02:31 02:41 Temperature Pulse Rate 96 H 95 H 100 H Pulse Rate [ From Monitor] Respiratory 16 16 17 Rate Blood Pressure 143/82 143/82 143/82 O2 Sat by Pulse 100 99 99 Oximetry 08/03/18 08/03/18 08/03/18 02:51 03:01 03:11 Temperature Pulse Rate 100 H 94 H 92 H Pulse Rate [ From Monitor] Respiratory 12 16 9 L Rate Blood Pressure 143/82 138/94 138/94 O2 Sat by Pulse 100 97 100 Oximetry 08/03/18 08/03/18 08/03/18 03:21 03:31 03:41 Temperature Pulse Rate 92 H 91 H 93 H Pulse Rate [ From Monitor] Respiratory 12 14 16 Rate Blood Pressure 138/94 138/94 138/94 O2 Sat by Pulse 100 100 100 Oximetry 08/03/18 08/03/18 08/03/18 03:51 04:00 04:11 Temperature 98.8 F Pulse Rate 93 H 93 H 93 H Pulse Rate [ 72 From Monitor] Respiratory 17 15 16 Rate Blood Pressure 138/94 121/58 121/58 O2 Sat by Pulse 100 100 100 Oximetry 08/03/18 08/03/18 08/03/18 04:21 04:31 04:41 Temperature Pulse Rate 89 90 86 Pulse Rate [ From Monitor] Respiratory 17 15 15 Rate Blood Pressure 121/58 121/58 121/58 O2 Sat by Pulse 99 99 99 Oximetry 08/03/18 08/03/18 08/03/18 04:51 05:00 05:11 Temperature Pulse Rate 86 88 93 H Pulse Rate [ From Monitor] Respiratory 15 14 17 Rate Blood Pressure 121/58 147/84 147/84 O2 Sat by Pulse 99 100 100 Oximetry 08/03/18 08/03/18 08/03/18 05:21 05:31 05:41 Temperature Pulse Rate 98 H 88 88 Pulse Rate [ From Monitor] Respiratory 14 15 15 Rate Blood Pressure 147/84 147/84 147/84 O2 Sat by Pulse 100 100 100 Oximetry 08/03/18 08/03/18 08/03/18 05:51 06:00 06:11 Temperature Pulse Rate 89 96 H 95 H Pulse Rate [ From Monitor] Respiratory 15 18 14 Rate Blood Pressure 147/84 152/92 152/92 O2 Sat by Pulse 100 100 100 Oximetry 08/03/18 08/03/18 08/03/18 06:21 06:31 06:41 Temperature Pulse Rate 98 H 95 H 89 Pulse Rate [ From Monitor] Respiratory 14 19 16 Rate Blood Pressure 152/92 152/92 152/92 O2 Sat by Pulse 100 100 100 Oximetry 08/03/18 08/03/18 08/03/18 06:51 07:00 07:11 Temperature Pulse Rate 89 91 H 93 H Pulse Rate [ From Monitor] Respiratory 16 17 17 Rate Blood Pressure 152/92 142/85 152/92 O2 Sat by Pulse 100 100 100 Oximetry 08/03/18 08/03/18 08/03/18 07:21 07:31 07:41 Temperature Pulse Rate 94 H 92 H 89 Pulse Rate [ From Monitor] Respiratory 15 13 15 Rate Blood Pressure 152/92 152/92 152/92 O2 Sat by Pulse 100 100 100 Oximetry 08/03/18 08/03/18 08/03/18 07:51 08:00 08:11 Temperature Pulse Rate 90 91 H 93 H Pulse Rate [ From Monitor] Respiratory 16 14 17 Rate Blood Pressure 152/92 141/85 141/85 O2 Sat by Pulse 100 100 100 Oximetry 08/03/18 08/03/18 08/03/18 08:21 08:31 08:41 Temperature Pulse Rate 96 H 91 H 89 Pulse Rate [ From Monitor] Respiratory 17 14 14 Rate Blood Pressure 141/85 141/85 141/85 O2 Sat by Pulse 100 100 100 Oximetry 08/03/18 08/03/18 08/03/18 08:51 09:00 09:11 Temperature Pulse Rate 94 H 95 H 96 H Pulse Rate [ From Monitor] Respiratory 15 14 16 Rate Blood Pressure 141/85 141/87 141/85 O2 Sat by Pulse 100 100 100 Oximetry 08/03/18 08/03/18 08/03/18 09:21 09:31 09:41 Temperature Pulse Rate 93 H 95 H 94 H Pulse Rate [ From Monitor] Respiratory 14 15 13 Rate Blood Pressure 141/85 141/85 141/85 O2 Sat by Pulse 100 100 100 Oximetry 08/03/18 08/03/18 08/03/18 09:51 10:00 10:11 Temperature Pulse Rate 91 H 96 H 92 H Pulse Rate [ From Monitor] Respiratory 16 16 19 Rate Blood Pressure 141/85 127/80 127/80 O2 Sat by Pulse 100 100 Oximetry 08/03/18 10:21 Temperature Pulse Rate 89 Pulse Rate [ From Monitor] Respiratory 14 Rate Blood Pressure 130/67 O2 Sat by Pulse 100 Oximetry General appearance: Present: no acute distress, disheveled - EENT Eyes: PERRL, EOM intact ENT: poor dentition - Neck Neck: supple, normal ROM - Respiratory Respiratory effort: normal Respiratory: bilateral: CTA - Breasts Breasts: deferred - Cardiovascular Rhythm: regular Heart Sounds: Present: systolic murmur - Gastrointestinal General gastrointestinal: Present: soft, non-tender, normal bowel sounds Rectal Exam: deferred - Genitourinary Female genitourinary: deferred - Musculoskeletal Musculoskeletal: strength equal bilaterally - Labs CBC & Chem 7: 08/03/18 08:20 08/03/18 08:20 Labs: Abnormal lab results 08/02/18 08/02/18 08/02/18 Range/Units 07:33 09:24 10:11 WBC (4.5-11.0) K/mm3 RBC (3.65-5.03) M/mm3 Hgb (10.1-14.3) gm/dl Hct (30.3-42.9) % MCH (28-32) pg RDW (13.2-15.2) % Lymph % (Auto) (13.4-35.0) % Seg Neutrophils % (40.0-70.0) % Seg Neutrophils # (1.8-7.7) K/mm3 PT (12.2-14.9) Sec. INR (0.87-1.13) APTT (24.2-36.6) Sec. Sodium (137-145) mmol/L Potassium (3.6-5.0) mmol/L Chloride (98-107) mmol/L BUN (7-17) mg/dL Creatinine (0.7-1.2) mg/dL Glucose (65-100) mg/dL POC Glucose 50 L 267 H 232 H (70-105) Lactic Acid (0.7-2.0) mmol/L Calcium (8.4-10.2) mg/dL Phosphorus (2.5-4.5) mg/dL Troponin T (0.00-0.029) ng/mL Crossmatch 08/02/18 08/02/18 08/02/18 Range/Units 11:20 12:07 13:16 WBC (4.5-11.0) K/mm3 RBC (3.65-5.03) M/mm3 Hgb (10.1-14.3) gm/dl Hct (30.3-42.9) % MCH (28-32) pg RDW (13.2-15.2) % Lymph % (Auto) (13.4-35.0) % Seg Neutrophils % (40.0-70.0) % Seg Neutrophils # (1.8-7.7) K/mm3 PT (12.2-14.9) Sec. INR (0.87-1.13) APTT (24.2-36.6) Sec. Sodium 151 H (137-145) mmol/L Potassium (3.6-5.0) mmol/L Chloride 113.9 H (98-107) mmol/L BUN 50 H (7-17) mg/dL Creatinine 3.3 H (0.7-1.2) mg/dL Glucose 196 H (65-100) mg/dL POC Glucose 209 H 168 H (70-105) Lactic Acid (0.7-2.0) mmol/L Calcium 7.0 L (8.4-10.2) mg/dL Phosphorus 1.50 L D (2.5-4.5) mg/dL Troponin T (0.00-0.029) ng/mL Crossmatch 08/02/18 08/02/18 08/02/18 Range/Units 13:18 14:10 15:11 WBC (4.5-11.0) K/mm3 RBC (3.65-5.03) M/mm3 Hgb (10.1-14.3) gm/dl Hct (30.3-42.9) % MCH (28-32) pg RDW (13.2-15.2) % Lymph % (Auto) (13.4-35.0) % Seg Neutrophils % (40.0-70.0) % Seg Neutrophils # (1.8-7.7) K/mm3 PT (12.2-14.9) Sec. INR (0.87-1.13) APTT (24.2-36.6) Sec. Sodium (137-145) mmol/L Potassium (3.6-5.0) mmol/L Chloride (98-107) mmol/L BUN (7-17) mg/dL Creatinine (0.7-1.2) mg/dL Glucose (65-100) mg/dL POC Glucose 186 H 201 H 177 H (70-105) Lactic Acid (0.7-2.0) mmol/L Calcium (8.4-10.2) mg/dL Phosphorus (2.5-4.5) mg/dL Troponin T (0.00-0.029) ng/mL Crossmatch 08/02/18 08/02/18 08/02/18 Range/Units 16:11 17:43 18:10 WBC (4.5-11.0) K/mm3 RBC (3.65-5.03) M/mm3 Hgb (10.1-14.3) gm/dl Hct (30.3-42.9) % MCH (28-32) pg RDW (13.2-15.2) % Lymph % (Auto) (13.4-35.0) % Seg Neutrophils % (40.0-70.0) % Seg Neutrophils # (1.8-7.7) K/mm3 PT (12.2-14.9) Sec. INR (0.87-1.13) APTT (24.2-36.6) Sec. Sodium 150 H (137-145) mmol/L Potassium 3.5 L (3.6-5.0) mmol/L Chloride 113.8 H (98-107) mmol/L BUN 49 H (7-17) mg/dL Creatinine 3.0 H (0.7-1.2) mg/dL Glucose 112 H (65-100) mg/dL POC Glucose 137 H 129 H (70-105) Lactic Acid (0.7-2.0) mmol/L Calcium 7.1 L (8.4-10.2) mg/dL Phosphorus 1.10 L D (2.5-4.5) mg/dL Troponin T (0.00-0.029) ng/mL Crossmatch 08/02/18 08/02/18 08/02/18 Range/Units 18:48 18:58 20:07 WBC (4.5-11.0) K/mm3 RBC (3.65-5.03) M/mm3 Hgb (10.1-14.3) gm/dl Hct (30.3-42.9) % MCH (28-32) pg RDW (13.2-15.2) % Lymph % (Auto) (13.4-35.0) % Seg Neutrophils % (40.0-70.0) % Seg Neutrophils # (1.8-7.7) K/mm3 PT > 120.0 H (12.2-14.9) Sec. INR > 17.67 H* (0.87-1.13) APTT 63.2 H* (24.2-36.6) Sec. Sodium (137-145) mmol/L Potassium (3.6-5.0) mmol/L Chloride (98-107) mmol/L BUN (7-17) mg/dL Creatinine (0.7-1.2) mg/dL Glucose (65-100) mg/dL POC Glucose 132 H 108 H (70-105) Lactic Acid (0.7-2.0) mmol/L Calcium (8.4-10.2) mg/dL Phosphorus (2.5-4.5) mg/dL Troponin T (0.00-0.029) ng/mL Crossmatch 08/02/18 08/02/18 08/02/18 Range/Units 20:52 20:52 21:03 WBC (4.5-11.0) K/mm3 RBC (3.65-5.03) M/mm3 Hgb (10.1-14.3) gm/dl Hct (30.3-42.9) % MCH (28-32) pg RDW (13.2-15.2) % Lymph % (Auto) (13.4-35.0) % Seg Neutrophils % (40.0-70.0) % Seg Neutrophils # (1.8-7.7) K/mm3 PT 114.7 H 118.4 H (12.2-14.9) Sec. INR 14.11 H* 14.68 H* (0.87-1.13) APTT 62.2 H* (24.2-36.6) Sec. Sodium (137-145) mmol/L Potassium (3.6-5.0) mmol/L Chloride (98-107) mmol/L BUN (7-17) mg/dL Creatinine (0.7-1.2) mg/dL Glucose (65-100) mg/dL POC Glucose 122 H (70-105) Lactic Acid (0.7-2.0) mmol/L Calcium (8.4-10.2) mg/dL Phosphorus (2.5-4.5) mg/dL Troponin T (0.00-0.029) ng/mL Crossmatch 08/02/18 08/02/18 08/03/18 Range/Units 22:05 23:08 00:05 WBC (4.5-11.0) K/mm3 RBC (3.65-5.03) M/mm3 Hgb (10.1-14.3) gm/dl Hct (30.3-42.9) % MCH (28-32) pg RDW (13.2-15.2) % Lymph % (Auto) (13.4-35.0) % Seg Neutrophils % (40.0-70.0) % Seg Neutrophils # (1.8-7.7) K/mm3 PT (12.2-14.9) Sec. INR (0.87-1.13) APTT (24.2-36.6) Sec. Sodium (137-145) mmol/L Potassium (3.6-5.0) mmol/L Chloride (98-107) mmol/L BUN (7-17) mg/dL Creatinine (0.7-1.2) mg/dL Glucose (65-100) mg/dL POC Glucose 133 H 142 H 148 H (70-105) Lactic Acid (0.7-2.0) mmol/L Calcium (8.4-10.2) mg/dL Phosphorus (2.5-4.5) mg/dL Troponin T (0.00-0.029) ng/mL Crossmatch 08/03/18 08/03/18 08/03/18 Range/Units 01:00 03:01 04:01 WBC (4.5-11.0) K/mm3 RBC (3.65-5.03) M/mm3 Hgb (10.1-14.3) gm/dl Hct (30.3-42.9) % MCH (28-32) pg RDW (13.2-15.2) % Lymph % (Auto) (13.4-35.0) % Seg Neutrophils % (40.0-70.0) % Seg Neutrophils # (1.8-7.7) K/mm3 PT (12.2-14.9) Sec. INR (0.87-1.13) APTT (24.2-36.6) Sec. Sodium (137-145) mmol/L Potassium (3.6-5.0) mmol/L Chloride (98-107) mmol/L BUN (7-17) mg/dL Creatinine (0.7-1.2) mg/dL Glucose (65-100) mg/dL POC Glucose 170 H 171 H 332 H (70-105) Lactic Acid (0.7-2.0) mmol/L Calcium (8.4-10.2) mg/dL Phosphorus (2.5-4.5) mg/dL Troponin T (0.00-0.029) ng/mL Crossmatch 08/03/18 08/03/18 08/03/18 Range/Units 05:14 05:57 07:04 WBC (4.5-11.0) K/mm3 RBC (3.65-5.03) M/mm3 Hgb (10.1-14.3) gm/dl Hct (30.3-42.9) % MCH (28-32) pg RDW (13.2-15.2) % Lymph % (Auto) (13.4-35.0) % Seg Neutrophils % (40.0-70.0) % Seg Neutrophils # (1.8-7.7) K/mm3 PT (12.2-14.9) Sec. INR (0.87-1.13) APTT (24.2-36.6) Sec. Sodium (137-145) mmol/L Potassium (3.6-5.0) mmol/L Chloride (98-107) mmol/L BUN (7-17) mg/dL Creatinine (0.7-1.2) mg/dL Glucose (65-100) mg/dL POC Glucose 300 H 213 H 158 H (70-105) Lactic Acid (0.7-2.0) mmol/L Calcium (8.4-10.2) mg/dL Phosphorus (2.5-4.5) mg/dL Troponin T (0.00-0.029) ng/mL Crossmatch 08/03/18 08/03/18 08/03/18 Range/Units 08:20 08:20 08:20 WBC (4.5-11.0) K/mm3 RBC (3.65-5.03) M/mm3 Hgb (10.1-14.3) gm/dl Hct (30.3-42.9) % MCH (28-32) pg RDW (13.2-15.2) % Lymph % (Auto) (13.4-35.0) % Seg Neutrophils % (40.0-70.0) % Seg Neutrophils # (1.8-7.7) K/mm3 PT (12.2-14.9) Sec. INR (0.87-1.13) APTT (24.2-36.6) Sec. Sodium 147 H (137-145) mmol/L Potassium 3.4 L (3.6-5.0) mmol/L Chloride 112.1 H (98-107) mmol/L BUN 39 H (7-17) mg/dL Creatinine 2.6 H (0.7-1.2) mg/dL Glucose (65-100) mg/dL POC Glucose (70-105) Lactic Acid 2.60 H* (0.7-2.0) mmol/L Calcium 7.0 L (8.4-10.2) mg/dL Phosphorus 1.30 L (2.5-4.5) mg/dL Troponin T 0.079 H D (0.00-0.029) ng/mL Crossmatch 08/03/18 08/03/18 08/03/18 Range/Units 08:20 08:30 09:38 WBC 13.6 H (4.5-11.0) K/mm3 RBC 2.48 L (3.65-5.03) M/mm3 Hgb 6.4 L (10.1-14.3) gm/dl Hct 19.9 L* D (30.3-42.9) % MCH 26 L (28-32) pg RDW 21.3 H (13.2-15.2) % Lymph % (Auto) 10.5 L (13.4-35.0) % Seg Neutrophils % 84.9 H (40.0-70.0) % Seg Neutrophils # 11.5 H (1.8-7.7) K/mm3 PT 104.4 H (12.2-14.9) Sec. INR 12.55 H* (0.87-1.13) APTT (24.2-36.6) Sec. Sodium (137-145) mmol/L Potassium (3.6-5.0) mmol/L Chloride (98-107) mmol/L BUN (7-17) mg/dL Creatinine (0.7-1.2) mg/dL Glucose (65-100) mg/dL POC Glucose (70-105) Lactic Acid (0.7-2.0) mmol/L Calcium (8.4-10.2) mg/dL Phosphorus (2.5-4.5) mg/dL Troponin T (0.00-0.029) ng/mL Crossmatch See Detail Medications & Allergies - Medications Allergies/Adverse Reactions: Allergies No Known Allergies Allergy (Verified 12/03/16 23:01) Home Medications: Home Medications Medication Instructions Recorded Confirmed Last Taken Type Metoprolol [Lopressor TAB] 25 mg PO BID #60 tablet 12/29/16 01/29/17 Unknown Rx Famotidine [Pepcid] 20 mg PO DAILY #30 tablet 02/04/17 Unknown Rx Furosemide [Lasix TAB] 40 mg PO 0600,1800 #60 tablet 02/04/17 Unknown Rx Insulin NPH/Regular [NovoLIN 70/30] 18 unit SQ BIDDIAB #1 vial 02/04/17 Unknown Rx Metoprolol [Lopressor TAB] 50 mg PO TID #90 tablet 02/04/17 Unknown Rx Coumadin 08/02/18 Unknown History Active Medications: Generic Name Dose Route Start Last Admin Trade Name Abby PRN Reason Stop Dose Admin Albuterol 2.5 mg 08/01/18 17:42 Proventil IH Q3HRT PRN Shortness Of Breath Aspirin 325 mg 08/02/18 10:00 08/03/18 09:38 Ecotrin PO 325 mg QDAY ULI Administration Dextrose 0 ml 08/01/18 17:42 D50w (25gm) Syringe IV PRN PRN Hypoglycemia Famotidine 20 mg 08/02/18 10:00 08/03/18 09:38 Pepcid PO 20 mg DAILY ULI Administration Hydralazine HCl 10 mg 08/01/18 17:47 Apresoline IV TID PRN Hypertension Insulin Human Regular 100 100 mls @ 1 mls/hr 08/01/18 18:00 08/03/18 09:42 units/ Sodium Chloride IV 6 units/hr TITR ULI 6 mls/hr Titration Protocol 1 UNITS/HR Piperacillin Sod/Tazobactam Sod 2.25 gm in 50 mls @ 100 mls/hr 08/02/18 06:00 08/03/18 05:35 Zosyn/Ns 2.25 Gm/50ml IV 100 mls/hr Q8HR ULI Administration Dextrose 1,000 mls @ 125 mls/hr 08/02/18 13:00 08/03/18 03:04 D5w IV 125 mls/hr DIRECT ULI Administration Magnesium Sulfate 2 gm in 50 mls @ 25 mls/hr 08/03/18 10:00 Magnesium Sulfate 2gm/50ml IV 08/03/18 11:59 ONCE ONE Potassium Phosphate 20 mmol/ 256.6667 mls @ 125 mls/hr 08/03/18 10:00 Sodium Chloride IV 08/03/18 12:03 ONCE ONE Magnesium Sulfate 1 gm/ 25 mls @ 25 mls/hr 08/03/18 09:10 Sterile Water IV 08/03/18 10:09 ONCE ONE Sodium Phosphate 45 mmol/ 515 mls @ 84 mls/hr 08/03/18 09:10 Sodium Chloride IV 08/03/18 15:17 ONCE ONE Potassium Chloride 20 meq 08/03/18 10:00 K-Dur PO 08/03/18 10:01 ONCE ONE Sodium Chloride 10 ml 08/01/18 22:00 08/03/18 02:19 Sodium Chloride Flush Syringe 10 Ml IV 10 ml BID ULI Administration Sodium Chloride 10 ml 08/01/18 17:42 Sodium Chloride Flush Syringe 10 Ml IV PRN PRN LINE FLUSH Sodium Chloride 10 ml 08/01/18 20:04 Sodium Chloride Flush Syringe 10 Ml IV PRN PRN LINE FLUSH Sodium Phosphate 250 mg 08/03/18 10:00 K-Phos Neutral PO QID ULI
[2018-08-03] MEDS ORDERED: K-DUR PO ONE (12:00)
[2018-08-03] MEDS ORDERED: NACL 0.9% 500 ML 500 ML ONE (13:12)
[2018-08-03] MEDS: HumaLOG SUB-Q SCH ×3 (13:25→22:09)
[2018-08-03] MEDS ORDERED: ADRENALIN ONE (17:08)
--- NOTE | 2018-08-03 21:16 | Ultrasound Report ---
FINAL REPORT PROCEDURE: US RENAL BILAT TECHNIQUE: Real-time sonography in multiple planes of the kidneys, ureters and urinary bladder was p erformed with image documentation. CPT 38890 HISTORY: renal failure COMPARISON: No prior studies are available for comparison. FINDINGS: RIGHT kidney: Normal echotexture. No focal renal mass, calculus, or hydronephrosis. Length: 10.4 x 3. 6 x 5.4 cm. LEFT kidney: A small cystic lesion measuring 1.4 x 1 point 0 x 1.3 centimeters is noted in the upper pole. Otherwise normal echotexture without calculi or hydronephrosis. Length: 9.5 x 4.0 x 3.7cm. Bladder: Empty. IMPRESSION: Unremarkable study.
[2018-08-03 21:54] LABS: Hematocrit 25.9 % (30.3-42.9); Hemoglobin 8.5 gm/dl (10.1-14.3)
[2018-08-03 22:15] LABS: Calcium 6.7 mg/dL (8.4-10.2)
--- NOTE | 2018-08-03 23:56 | Progress Note ---
Assessment and Plan Assessment and plan: 48 year old woman with history of hypertension, that has posed mechanical mitral valve, diabetes who presents to the hospital philanthropy and altered mental status, she has not been adherents all her medications. Diagnosis SIRS Dka Dehydration Hypernatremia coagulopathy due to Coumadin status post mechanical mitral valve Acute renal failure due to Vasomotor nephropathy anemia requiring transfusion Plan Cont Insulin GTT and d5w Cont IVF, INR >15, give Vit K transfuse 1 unit prbc Optimize meds CCT 33 mins History Interval history: no vomiting she is no longer coughing up small amounts of blood no RODRIGUEZ, no fever no longer confused no sob, Hospitalist Physical - Physical exam Narrative exam: General.: Appears well, no distress, nontoxic HEENT: Moist mucous membranes, extraocular muscles intact, no lymphadenopathy Neck: supple Cardiac: S1-S2 heard Lungs: clear to auscultation bilaterally Abdomen: soft , nontender, nondistended, bowel sounds positive Extremities: no edema clubbing or cyanosis Skin: no rash or lesions Neurologic: no gross focal deficits Psych: calm, and cooperative - Constitutional Vitals: Temp Pulse Resp BP Pulse Ox 98.2 F 99 H 18 133/84 100 08/03/18 23:48 08/03/18 21:11 08/03/18 21:11 08/03/18 21:11 08/03/18 21:01 General appearance: Present: no acute distress, cachectic, disheveled Results - Labs CBC & Chem 7: 08/03/18 21:08 08/03/18 21:08 Labs: Laboratory Last Values WBC 13.6 K/mm3 (4.5-11.0) H 08/03/18 08:20 RBC 2.48 M/mm3 (3.65-5.03) L 08/03/18 08:20 Hgb 8.5 gm/dl (10.1-14.3) L 08/03/18 21:08 Hct 25.9 % (30.3-42.9) L D 08/03/18 21:08 MCV 80 fl (79-97) 08/03/18 08:20 MCH 26 pg (28-32) L 08/03/18 08:20 MCHC 32 % (30-34) 08/03/18 08:20 RDW 21.3 % (13.2-15.2) H 08/03/18 08:20 Plt Count 234 K/mm3 (140-440) 08/03/18 08:20 Lymph % (Auto) 10.5 % (13.4-35.0) L 08/03/18 08:20 [place] % (Auto) 3.4 % (0.0-7.3) 08/03/18 08:20 Eos % (Auto) 0.8 % (0.0-4.3) 08/03/18 08:20 Baso % (Auto) 0.4 % (0.0-1.8) 08/03/18 08:20 Lymph # 1.4 K/mm3 (1.2-5.4) 08/03/18 08:20 [place] # 0.5 K/mm3 (0.0-0.8) 08/03/18 08:20 Eos # 0.1 K/mm3 (0.0-0.4) 08/03/18 08:20 Baso # 0.1 K/mm3 (0.0-0.1) 08/03/18 08:20 Add Manual Diff Complete 08/02/18 03:46 Total Counted 100 08/02/18 03:46 Seg Neutrophils % 84.9 % (40.0-70.0) H 08/03/18 08:20 Seg Neuts % (Manual) 86.0 % (40.0-70.0) H 08/02/18 03:46 Band Neutrophils % 4.0 % 08/02/18 03:46 Lymphocytes % (Manual) 5.0 % (13.4-35.0) L 08/02/18 03:46 Reactive Lymphs % (Man) 0 % 08/02/18 03:46 Monocytes % (Manual) 5.0 % (0.0-7.3) 08/02/18 03:46 Eosinophils % (Manual) 0 % (0.0-4.3) 08/02/18 03:46 Basophils % (Manual) 0 % (0.0-1.8) 08/02/18 03:46 Metamyelocytes % 0 % 08/02/18 03:46 Myelocytes % 0 % 08/02/18 03:46 Promyelocytes % 0 % 08/02/18 03:46 Blast Cells % 0 % 08/02/18 03:46 Nucleated RBC % Not Reportable 08/02/18 03:46 Seg Neutrophils # 11.5 K/mm3 (1.8-7.7) H 08/03/18 08:20 Seg Neutrophils # Man 14.4 K/mm3 (1.8-7.7) H 08/02/18 03:46 Band Neutrophils # 0.7 K/mm3 08/02/18 03:46 Lymphocytes # (Manual) 0.8 K/mm3 (1.2-5.4) L 08/02/18 03:46 Abs React Lymphs (Man) 0.0 K/mm3 08/02/18 03:46 Monocytes # (Manual) 0.8 K/mm3 (0.0-0.8) 08/02/18 03:46 Eosinophils # (Manual) 0.0 K/mm3 (0.0-0.4) 08/02/18 03:46 Basophils # (Manual) 0.0 K/mm3 (0.0-0.1) 08/02/18 03:46 Metamyelocytes # 0.0 K/mm3 08/02/18 03:46 Myelocytes # 0.0 K/mm3 08/02/18 03:46 Promyelocytes # 0.0 K/mm3 08/02/18 03:46 Blast Cells # 0.0 K/mm3 08/02/18 03:46 WBC Morphology Not Reportable 08/02/18 03:46 Hypersegmented Neuts Not Reportable 08/02/18 03:46 Hyposegmented Neuts Not Reportable 08/02/18 03:46 Hypogranular Neuts Not Reportable 08/02/18 03:46 Smudge Cells Not Reportable 08/02/18 03:46 Toxic Granulation Not Reportable 08/02/18 03:46 Toxic Vacuolation Not Reportable 08/02/18 03:46 Dohle Bodies Not Reportable 08/02/18 03:46 Pelger-Huet Anomaly Not Reportable 08/02/18 03:46 Mary Rods Not Reportable 08/02/18 03:46 Platelet Estimate Consistent w auto 08/02/18 03:46 Clumped Platelets Not Reportable 08/02/18 03:46 Plt Clumps, EDTA Not Reportable 08/02/18 03:46 Large Platelets Not Reportable 08/02/18 03:46 Giant Platelets Not Reportable 08/02/18 03:46 Platelet Satelliting Not Reportable 08/02/18 03:46 Plt Morphology Comment Not Reportable 08/02/18 03:46 RBC Morphology Not Reportable 08/02/18 03:46 Dimorphic RBCs Not Reportable 08/02/18 03:46 Polychromasia Not Reportable 08/02/18 03:46 Hypochromasia 1+ 08/02/18 03:46 Poikilocytosis Not Reportable 08/02/18 03:46 Anisocytosis 1+ 08/02/18 03:46 Microcytosis Not Reportable 08/02/18 03:46 Macrocytosis Not Reportable 08/02/18 03:46 Spherocytes Not Reportable 08/02/18 03:46 Pappenheimer Bodies Not Reportable 08/02/18 03:46 Sickle Cells Not Reportable 08/02/18 03:46 Target Cells Not Reportable 08/02/18 03:46 Tear Drop Cells Not Reportable 08/02/18 03:46 Ovalocytes Not Reportable 08/02/18 03:46 Helmet Cells Not Reportable 08/02/18 03:46 [place] Bodies Not Reportable 08/02/18 03:46 [place] Rings Not Reportable 08/02/18 03:46 Jerri Cells Not Reportable 08/02/18 03:46 Bite Cells Not Reportable 08/02/18 03:46 Crenated Cell Few 08/02/18 03:46 Elliptocytes Not Reportable 08/02/18 03:46 Acanthocytes (Spur) Not Reportable 08/02/18 03:46 Rouleaux Not Reportable 08/02/18 03:46 Hemoglobin C Crystals Not Reportable 08/02/18 03:46 Schistocytes Not Reportable 08/02/18 03:46 Malaria parasites Not Reportable 08/02/18 03:46 Michael Bodies Not Reportable 08/02/18 03:46 Hem Pathologist Commnt No 08/02/18 03:46 PT 104.4 Sec. (12.2-14.9) H 08/03/18 08:30 INR 12.55 (0.87-1.13) H* 08/03/18 08:30 APTT 62.2 Sec. (24.2-36.6) H* 08/02/18 20:52 VBG pH 6.903 (7.320-7.420) L* 08/01/18 16:17 Sodium 141 mmol/L (137-145) 08/03/18 21:08 Potassium 3.6 mmol/L (3.6-5.0) 08/03/18 21:08 Chloride 106.8 mmol/L (98-107) 08/03/18 21:08 Carbon Dioxide 21 mmol/L (22-30) L 08/03/18 21:08 Anion Gap 17 mmol/L 08/03/18 21:08 BUN 34 mg/dL (7-17) H 08/03/18 21:08 Creatinine 2.4 mg/dL (0.7-1.2) H 08/03/18 21:08 Estimated GFR 26 ml/min 08/03/18 21:08 BUN/Creatinine Ratio 14 % 08/03/18 21:08 Glucose 89 mg/dL (65-100) 08/03/18 21:08 POC Glucose 87 (70-105) 08/03/18 21:57 Lactic Acid 1.90 mmol/L (0.7-2.0) 08/03/18 09:41 Calcium 6.7 mg/dL (8.4-10.2) L 08/03/18 21:08 Phosphorus 2.30 mg/dL (2.5-4.5) L D 08/03/18 21:08 Magnesium 2.10 mg/dL (1.7-2.3) 08/03/18 21:08 Troponin T 0.079 ng/mL (0.00-0.029) H D 08/03/18 08:20 Triglycerides 279 mg/dL (2-149) H 08/01/18 16:17 Cholesterol 229 mg/dL (50-199) H 08/01/18 16:17 LDL Cholesterol Direct 154 mg/dL (50-130) H 08/01/18 16:17 HDL Cholesterol 47 mg/dL (40-59) 08/01/18 16:17 Cholesterol/HDL Ratio 4.87 % 08/01/18 16:17 Lipase 43 units/L (13-60) 08/01/18 16:17 Urine Color Yellow (Yellow) 08/01/18 17:15 Urine Turbidity Cloudy (Clear) 08/01/18 17:15 Urine pH 5.0 (5.0-7.0) 08/01/18 17:15 Ur Specific [place] 1.021 (1.003-1.030) 08/01/18 17:15 Urine Protein 100 mg/dl mg/dL (Negative) 08/01/18 17:15 Urine Glucose (UA) >=500 mg/dL (Negative) 08/01/18 17:15 Urine Ketones 20 mg/dL (Negative) 08/01/18 17:15 Urine Blood Mod (Negative) 08/01/18 17:15 Urine Nitrite Neg (Negative) 08/01/18 17:15 Urine Bilirubin Neg (Negative) 08/01/18 17:15 Urine Urobilinogen < 2.0 mg/dL (<2.0) 08/01/18 17:15 Ur Leukocyte Esterase Neg (Negative) 08/01/18 17:15 Urine WBC (Auto) 17.0 /HPF (0.0-6.0) H 08/01/18 17:15 Urine RBC (Auto) 4.0 /HPF (0.0-6.0) 08/01/18 17:15 U Epithel Cells (Auto) 23.0 /HPF (0-13.0) H 08/01/18 17:15 Urine Bacteria (Auto) 1+ /HPF (Negative) 08/01/18 17:15 Urine Mucus Few /HPF 08/01/18 17:15 Urine Yeast (Budding) 2+ /HPF 08/01/18 17:15 Urine Creatinine 45.9 mg/dL (0.1-20.0) H 08/01/18 Unknown Urine Sodium 23 mmol/L 08/01/18 Unknown Blood Type O POSITIVE 08/03/18 09:38 Antibody Screen Negative 08/03/18 09:38 Crossmatch See Detail 08/03/18 09:38 Nutrition/Malnutrition Assess - Dietary Evaluation Nutrition/Malnutrition Findings: Nutrition Notes Start: 08/02/18 10:23 Freq: Status: Active Protocol: Document 08/02/18 10:23 CP (Rec: 08/02/18 10:[id number]) Co-Sign 08/02/18 10:23 LP Nutrition Notes 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 Pt. is NPO d/t DKA protocol. Pt. was in pain at time of visit, and couldn't speak. Percent of energy/protein needs met: 0%/0% Burn Absent Trauma Absent #1 Nutrition Diagnosis Inadequate oral intake Etiology DKA As Evidenced by Signs and Symptoms NPO status Is patient on ventilator? No Is Patient Ambulatory and/or Out of Bed No REE-([facility]-confined to bed) 1280.472 Kcal/Kg value to use for calculation 35 Approximate Energy Requirements Using 1588 kcal/Kg Calculation Used for Recommendations Kcal/kg Additional Notes PRO: 54-91g (1.2-2 g/kg) Fluid: 1mL/hr Nutrition Intervention Change Diet Order: Advance when medically feasible Goal #1 Diet advancement when feasible Anticipated Discharge Needs: Unable to determine at this time. Follow-Up By: 08/04/18 Additional Comments F/U: Diet advancement/diet education needs
[2018-08-04 01:22] LABS: Hematocrit 23.3 % (30.3-42.9); Hemoglobin 7.8 gm/dl (10.1-14.3)
[2018-08-04 05:56] LABS: Basophils # (Auto) 0.1 K/mm3 (0.0-0.1); Basophils % (Auto) 0.9 % (0.0-1.8); Eosinophils # (Auto) 0.2 K/mm3 (0.0-0.4); Eosinophils % (Auto) 2.1 % (0.0-4.3); Hematocrit 24.2 % (30.3-42.9); Lymphocytes # (Auto) 1.8 K/mm3 (1.2-5.4); Lymphocytes % (Auto) 24.3 % (13.4-35.0); Mean Corpuscular HGB Conc 33 % (30-34); Mean Corpuscular Volume 83 fl (79-97); Monocytes # (Auto) 0.3 K/mm3 (0.0-0.8); Monocytes % (Auto) 4.4 % (0.0-7.3); Platelet Count 175 K/mm3 (140-440); Red Blood Count 2.93 M/mm3 (3.65-5.03)
[2018-08-04 06:20] LABS: Calcium 6.6 mg/dL (8.4-10.2)
[2018-08-04 07:33] LABS: INR 8.67 (0.87-1.13)
[2018-08-04] MEDS: HumaLOG SUB-Q SCH ×5 (08:25→22:53)
--- NOTE | 2018-08-04 08:48 | Progress Note ---
Subjective Principal diagnosis: DKA Interval history: Patient was seen today for follow-up of multiple renal related issues No complaints of any chest pain pressure or shortness of breath Interdisciplinary notes that also reviewed resting comfortably in bed Renal function stable Wants to know when she can go home Events of 24 hours vitals labs intake output medications were reviewed Past medical history: Reviewed Family history: Reviewed Social history: Reviewed Allergies: Reviewed Physical examination: Vitals: Reviewed HEENT: No pallor or icterus oral mucosa moist Neck: Supple no JVD no thyromegaly Chest: Bilateral clear to auscultation anteriorly Heart: Regular rate and rhythm S1-S2 heard no S3-S4 Abdomen: Soft nontender no voluntary guarding rigidity rebound Extremity: Dry skin less than 1+ peripheral edema Psychiatric: No evidence of agitation and aggression noted Dermatology: No petechial rashes Labs and x-rays: Reviewed from today Assessment and plan Acute on chronic renal failure patient clinically doing well severe hyperkalemia resolved Metabolic acidosis better Diabetic ketoacidosis needs follow-up/blood sugar control improving Avoid marta inhibitors angiotensin receptor zoila due to compliance issues severe hyperkalemia Renal function appears to have stabilized small renal cyst otherwise unremarkable renal ultrasound Hypophosphatemia patient was encouraged to increase her dietary intake of phosphorus, we'll start her on Neutra-Phos for now, she will also need to take some vitamin D she likely may be vitamin D deficient Monitor phosphorus levels and monitor electrolytes Patient does follow up with [facility] and she will need to make an appointment upon discharge We'll continue to follow and make recommendation for renal standpoint Objective - Vital Signs Vital signs: Vital Signs - 12hr 08/03/18 08/03/18 08/03/18 20:51 21:01 21:11 Temperature Pulse Rate 102 H 99 H 99 H Pulse Rate [ From Monitor] Respiratory 30 H 19 18 Rate Blood Pressure 133/84 133/84 133/84 O2 Sat by Pulse 100 Oximetry 08/03/18 08/03/18 08/03/18 21:30 22:00 22:30 Temperature Pulse Rate 97 H 96 H 95 H Pulse Rate [ From Monitor] Respiratory 21 19 19 Rate Blood Pressure 125/88 135/88 134/86 O2 Sat by Pulse 98 97 97 Oximetry 08/03/18 08/03/18 08/03/18 23:00 23:30 23:48 Temperature 98.2 F Pulse Rate 94 H 100 H Pulse Rate [ From Monitor] Respiratory 19 22 Rate Blood Pressure 131/93 127/87 O2 Sat by Pulse 99 99 Oximetry 08/04/18 08/04/18 08/04/18 00:00 00:05 00:31 Temperature Pulse Rate 94 H 93 H 97 H Pulse Rate [ 93 H From Monitor] Respiratory 18 17 17 Rate Blood Pressure 137/88 137/88 113/78 O2 Sat by Pulse 97 99 Oximetry 08/04/18 08/04/18 08/04/18 01:00 01:30 02:00 Temperature Pulse Rate 96 H 98 H 94 H Pulse Rate [ From Monitor] Respiratory 16 16 17 Rate Blood Pressure 118/80 115/81 119/72 O2 Sat by Pulse 97 97 98 Oximetry 08/04/18 08/04/18 08/04/18 02:30 03:00 03:30 Temperature Pulse Rate 92 H 89 87 Pulse Rate [ From Monitor] Respiratory 17 16 15 Rate Blood Pressure 112/87 112/72 112/78 O2 Sat by Pulse 99 98 100 Oximetry 08/04/18 08/04/18 08/04/18 04:00 04:30 05:00 Temperature 98.0 F Pulse Rate 87 87 89 Pulse Rate [ 88 From Monitor] Respiratory 13 15 14 Rate Blood Pressure 142/89 128/85 151/97 O2 Sat by Pulse 99 99 98 Oximetry 08/04/18 08/04/18 05:30 06:00 Temperature Pulse Rate 88 87 Pulse Rate [ From Monitor] Respiratory 15 16 Rate Blood Pressure 135/90 122/77 O2 Sat by Pulse 97 98 Oximetry - Lab 08/04/18 19:22 08/04/18 19:22 Most recent lab results Calcium 6.6 mg/dL (8.4-10.2) L 08/04/18 05:31 Phosphorus 3.30 mg/dL (2.5-4.5) D 08/04/18 05:31 Magnesium 2.10 mg/dL (1.7-2.3) 08/04/18 05:31 Urine Creatinine 45.9 mg/dL (0.1-20.0) H 08/01/18 Unknown Urine Sodium 23 mmol/L 08/01/18 Unknown Medications & Allergies - Medications Allergies/Adverse Reactions: Allergies No Known Allergies Allergy (Verified 12/03/16 23:01) Home Medications: Home Medications Medication Instructions Recorded Confirmed Last Taken Type Metoprolol [Lopressor TAB] 25 mg PO BID #60 tablet 12/29/16 01/29/17 Unknown Rx Famotidine [Pepcid] 20 mg PO DAILY #30 tablet 02/04/17 Unknown Rx Furosemide [Lasix TAB] 40 mg PO 0600,1800 #60 tablet 02/04/17 Unknown Rx Insulin NPH/Regular [NovoLIN 70/30] 18 unit SQ BIDDIAB #1 vial 02/04/17 Unknown Rx Metoprolol [Lopressor TAB] 50 mg PO TID #90 tablet 02/04/17 Unknown Rx Coumadin 08/02/18 Unknown History Active Medications: Generic Name Dose Route Start Last Admin Trade Name Freq PRN Reason Stop Dose Admin Albuterol 2.5 mg 08/01/18 17:42 Proventil IH Q3HRT PRN Shortness Of Breath Aspirin 325 mg 08/02/18 10:00 08/03/18 09:38 Ecotrin PO 325 mg QDAY ULI Administration Dextrose 0 ml 08/01/18 17:42 D50w (25gm) Syringe IV PRN PRN Hypoglycemia Famotidine 20 mg 08/02/18 10:00 08/03/18 09:38 Pepcid PO 20 mg DAILY ULI Administration Hydralazine HCl 10 mg 08/01/18 17:47 Apresoline IV TID PRN Hypertension Insulin Human Regular 100 100 mls @ 1 mls/hr 08/01/18 18:00 08/03/18 11:20 units/ Sodium Chloride IV 0 units/hr TITR ULI 0 mls/hr Titration Protocol 1 UNITS/HR Dextrose 1,000 mls @ 125 mls/hr 08/02/18 13:00 08/03/18 15:50 D5w IV 125 mls/hr DIRECT ULI Administration Insulin Human Isoph/Insulin Regular 10 unit 08/03/18 11:30 08/04/18 08:25 Humulin 70/30 SUB-Q 10 unit BIDDIAB ULI Administration Insulin Human Lispro 0 unit 08/03/18 12:00 08/04/18 08:25 Humalog SUB-Q 4 unit ACHS ULI Administration Protocol Sodium Bicarbonate 650 mg 08/04/18 10:00 Sodium Bicarbonate PO BID ULI Sodium Chloride 10 ml 08/01/18 22:00 08/03/18 22:10 Sodium Chloride Flush Syringe 10 Ml IV 10 ml BID ULI Administration Sodium Chloride 10 ml 08/01/18 17:42 Sodium Chloride Flush Syringe 10 Ml IV PRN PRN LINE FLUSH Sodium Phosphate 250 mg 08/03/18 10:00 08/03/18 22:09 K-Phos Neutral PO 250 mg QID ULI Administration
[2018-08-04] MEDS: K-PHOS NEUTRAL PO SCH ×3 (09:28→23:43)
[2018-08-04] MEDS: ECOTRIN PO SCH (09:28)
[2018-08-04] MEDS: PEPCID PO SCH (09:29)
[2018-08-04] MEDS: SODIUM CHLORIDE FLUSH SYRINGE 10 ML IV SCH ×2 (09:29→22:50)
[2018-08-04] MEDS: SODIUM BICARBONATE PO SCH ×2 (09:29→22:50)
[2018-08-04 11:10] LABS: Alanine Aminotransferase 40 units/L (7-56); Albumin 2.7 g/dL (3.9-5)
[2018-08-04 11:18] LABS: Bilirubin,Direct < 0.2 mg/dL (0-0.2)
--- NOTE | 2018-08-04 11:19 | Progress Note ---
Assessment and Plan Assessment and plan: 48 year old woman with history of hypertension, that has posed mechanical mitral valve, diabetes who presents to the hospital with altered mental status, she has not been adherents all her medications. Diagnosis SIRS Dka Dehydration Hypernatremia coagulopathy due to Coumadin status post mechanical mitral valve Acute renal failure due to Vasomotor nephropathy acute blood loss anemia Upper GI bleed Plan transition to sq insulins Hypernatremia resolved with d5w INR went from 15 to 8 after vitamin K, will repeat H/H this afternoon, if dropping, will give FFP and more vit K If INR goes below 2.5, will heparin ggt sp transfusion of 1 unit prbc, hg now stable had coffee ground emesis this am, GI consult pending, hg stable creatine improving with IVF Optimize meds CCT 33 mins History Interval history: she had one episode of coffee ground emesis she is no longer coughing up small amounts of blood no RODRIGUEZ, no fever no longer confused no sob, Hospitalist Physical - Physical exam Narrative exam: General.: Appears well, no distress, nontoxic HEENT: Moist mucous membranes, extraocular muscles intact, no lymphadenopathy Neck: supple Cardiac: S1-S2 heard Lungs: clear to auscultation bilaterally Abdomen: soft , nontender, nondistended, bowel sounds positive Extremities: no edema clubbing or cyanosis Skin: no rash or lesions Neurologic: no gross focal deficits Psych: calm, and cooperative - Constitutional Vitals: Temp Pulse Resp BP Pulse Ox 98.6 F 87 16 122/77 98 08/04/18 08:00 08/04/18 06:00 08/04/18 06:00 08/04/18 06:00 08/04/18 06:00 General appearance: Present: no acute distress, cachectic, disheveled Results - Labs CBC & Chem 7: 08/04/18 13:50 08/04/18 05:31 Labs: Laboratory Last Values WBC 7.2 K/mm3 (4.5-11.0) 08/04/18 05:31 RBC 2.93 M/mm3 (3.65-5.03) L 08/04/18 05:31 Hgb 8.0 gm/dl (10.1-14.3) L 08/04/18 05:31 Hct 24.2 % (30.3-42.9) L 08/04/18 05:31 MCV 83 fl (79-97) 08/04/18 05:31 MCH 27 pg (28-32) L 08/04/18 05:31 MCHC 33 % (30-34) 08/04/18 05:31 RDW 21.0 % (13.2-15.2) H 08/04/18 05:31 Plt Count 175 K/mm3 (140-440) 08/04/18 05:31 Lymph % (Auto) 24.3 % (13.4-35.0) 08/04/18 05:31 [place] % (Auto) 4.4 % (0.0-7.3) 08/04/18 05:31 Eos % (Auto) 2.1 % (0.0-4.3) 08/04/18 05:31 Baso % (Auto) 0.9 % (0.0-1.8) 08/04/18 05:31 Lymph # 1.8 K/mm3 (1.2-5.4) 08/04/18 05:31 [place] # 0.3 K/mm3 (0.0-0.8) 08/04/18 05:31 Eos # 0.2 K/mm3 (0.0-0.4) 08/04/18 05:31 Baso # 0.1 K/mm3 (0.0-0.1) 08/04/18 05:31 Add Manual Diff Complete 08/02/18 03:46 Total Counted 100 08/02/18 03:46 Seg Neutrophils % 68.3 % (40.0-70.0) 08/04/18 05:31 Seg Neuts % (Manual) 86.0 % (40.0-70.0) H 08/02/18 03:46 Band Neutrophils % 4.0 % 08/02/18 03:46 Lymphocytes % (Manual) 5.0 % (13.4-35.0) L 08/02/18 03:46 Reactive Lymphs % (Man) 0 % 08/02/18 03:46 Monocytes % (Manual) 5.0 % (0.0-7.3) 08/02/18 03:46 Eosinophils % (Manual) 0 % (0.0-4.3) 08/02/18 03:46 Basophils % (Manual) 0 % (0.0-1.8) 08/02/18 03:46 Metamyelocytes % 0 % 08/02/18 03:46 Myelocytes % 0 % 08/02/18 03:46 Promyelocytes % 0 % 08/02/18 03:46 Blast Cells % 0 % 08/02/18 03:46 Nucleated RBC % Not Reportable 08/02/18 03:46 Seg Neutrophils # 4.9 K/mm3 (1.8-7.7) 08/04/18 05:31 Seg Neutrophils # Man 14.4 K/mm3 (1.8-7.7) H 08/02/18 03:46 Band Neutrophils # 0.7 K/mm3 08/02/18 03:46 Lymphocytes # (Manual) 0.8 K/mm3 (1.2-5.4) L 08/02/18 03:46 Abs React Lymphs (Man) 0.0 K/mm3 08/02/18 03:46 Monocytes # (Manual) 0.8 K/mm3 (0.0-0.8) 08/02/18 03:46 Eosinophils # (Manual) 0.0 K/mm3 (0.0-0.4) 08/02/18 03:46 Basophils # (Manual) 0.0 K/mm3 (0.0-0.1) 08/02/18 03:46 Metamyelocytes # 0.0 K/mm3 08/02/18 03:46 Myelocytes # 0.0 K/mm3 08/02/18 03:46 Promyelocytes # 0.0 K/mm3 08/02/18 03:46 Blast Cells # 0.0 K/mm3 08/02/18 03:46 WBC Morphology Not Reportable 08/02/18 03:46 Hypersegmented Neuts Not Reportable 08/02/18 03:46 Hyposegmented Neuts Not Reportable 08/02/18 03:46 Hypogranular Neuts Not Reportable 08/02/18 03:46 Smudge Cells Not Reportable 08/02/18 03:46 Toxic Granulation Not Reportable 08/02/18 03:46 Toxic Vacuolation Not Reportable 08/02/18 03:46 Dohle Bodies Not Reportable 08/02/18 03:46 Pelger-Huet Anomaly Not Reportable 08/02/18 03:46 Mary Rods Not Reportable 08/02/18 03:46 Platelet Estimate Consistent w auto 08/02/18 03:46 Clumped Platelets Not Reportable 08/02/18 03:46 Plt Clumps, EDTA Not Reportable 08/02/18 03:46 Large Platelets Not Reportable 08/02/18 03:46 Giant Platelets Not Reportable 08/02/18 03:46 Platelet Satelliting Not Reportable 08/02/18 03:46 Plt Morphology Comment Not Reportable 08/02/18 03:46 RBC Morphology Not Reportable 08/02/18 03:46 Dimorphic RBCs Not Reportable 08/02/18 03:46 Polychromasia Not Reportable 08/02/18 03:46 Hypochromasia 1+ 08/02/18 03:46 Poikilocytosis Not Reportable 08/02/18 03:46 Anisocytosis 1+ 08/02/18 03:46 Microcytosis Not Reportable 08/02/18 03:46 Macrocytosis Not Reportable 08/02/18 03:46 Spherocytes Not Reportable 08/02/18 03:46 Pappenheimer Bodies Not Reportable 08/02/18 03:46 Sickle Cells Not Reportable 08/02/18 03:46 Target Cells Not Reportable 08/02/18 03:46 Tear Drop Cells Not Reportable 08/02/18 03:46 Ovalocytes Not Reportable 08/02/18 03:46 Helmet Cells Not Reportable 08/02/18 03:46 [place] Bodies Not Reportable 08/02/18 03:46 [place] Rings Not Reportable 08/02/18 03:46 [place] Cells Not Reportable 08/02/18 03:46 Bite Cells Not Reportable 08/02/18 03:46 Crenated Cell Few 08/02/18 03:46 Elliptocytes Not Reportable 08/02/18 03:46 Acanthocytes (Spur) Not Reportable 08/02/18 03:46 Rouleaux Not Reportable 08/02/18 03:46 Hemoglobin C Crystals Not Reportable 08/02/18 03:46 Schistocytes Not Reportable 08/02/18 03:46 Malaria parasites Not Reportable 08/02/18 03:46 Michael Bodies Not Reportable 08/02/18 03:46 Hem Pathologist Commnt No 08/02/18 03:46 PT 77.7 Sec. (12.2-14.9) H 08/04/18 05:54 INR 8.67 (0.87-1.13) H* 08/04/18 05:54 APTT 62.2 Sec. (24.2-36.6) H* 08/02/18 20:52 VBG pH 6.903 (7.320-7.420) L* 08/01/18 16:17 Sodium 135 mmol/L (137-145) L 08/04/18 05:31 Potassium 4.4 mmol/L (3.6-5.0) D 08/04/18 05:31 Chloride 102.7 mmol/L (98-107) 08/04/18 05:31 Carbon Dioxide 19 mmol/L (22-30) L 08/04/18 05:31 Anion Gap 18 mmol/L 08/04/18 05:31 BUN 34 mg/dL (7-17) H 08/04/18 05:31 Creatinine 2.1 mg/dL (0.7-1.2) H 08/04/18 05:31 Estimated GFR 30 ml/min 08/04/18 05:31 BUN/Creatinine Ratio 16 % 08/04/18 05:31 Glucose 296 mg/dL (65-100) H 08/04/18 05:31 POC Glucose 87 (70-105) 08/03/18 21:57 Lactic Acid 1.90 mmol/L (0.7-2.0) 08/03/18 09:41 Calcium 6.6 mg/dL (8.4-10.2) L 08/04/18 05:31 Phosphorus 3.30 mg/dL (2.5-4.5) D 08/04/18 05:31 Magnesium 2.10 mg/dL (1.7-2.3) 08/04/18 05:31 Total Bilirubin 0.40 mg/dL (0.1-1.2) 08/04/18 09:38 AST 127 units/L (5-40) H 08/04/18 09:38 ALT 40 units/L (7-56) 08/04/18 09:38 Alkaline Phosphatase 262 units/L (35-129) H 08/04/18 09:38 Troponin T 0.079 ng/mL (0.00-0.029) H D 08/03/18 08:20 Total Protein 4.8 g/dL (6.3-8.2) L 08/04/18 09:38 Albumin 2.7 g/dL (3.9-5) L 08/04/18 09:38 Albumin/Globulin Ratio 1.3 % 08/04/18 09:38 Triglycerides 279 mg/dL (2-149) H 08/01/18 16:17 Cholesterol 229 mg/dL (50-199) H 08/01/18 16:17 LDL Cholesterol Direct 154 mg/dL (50-130) H 08/01/18 16:17 HDL Cholesterol 47 mg/dL (40-59) 08/01/18 16:17 Cholesterol/HDL Ratio 4.87 % 08/01/18 16:17 Lipase 43 units/L (13-60) 08/01/18 16:17 Urine Color Yellow (Yellow) 08/01/18 17:15 Urine Turbidity Cloudy (Clear) 08/01/18 17:15 Urine pH 5.0 (5.0-7.0) 08/01/18 17:15 Ur Specific [place] 1.021 (1.003-1.030) 08/01/18 17:15 Urine Protein 100 mg/dl mg/dL (Negative) 08/01/18 17:15 Urine Glucose (UA) >=500 mg/dL (Negative) 08/01/18 17:15 Urine Ketones 20 mg/dL (Negative) 08/01/18 17:15 Urine Blood Mod (Negative) 08/01/18 17:15 Urine Nitrite Neg (Negative) 08/01/18 17:15 Urine Bilirubin Neg (Negative) 08/01/18 17:15 Urine Urobilinogen < 2.0 mg/dL (<2.0) 08/01/18 17:15 Ur Leukocyte Esterase Neg (Negative) 08/01/18 17:15 Urine WBC (Auto) 17.0 /HPF (0.0-6.0) H 08/01/18 17:15 Urine RBC (Auto) 4.0 /HPF (0.0-6.0) 08/01/18 17:15 U Epithel Cells (Auto) 23.0 /HPF (0-13.0) H 08/01/18 17:15 Urine Bacteria (Auto) 1+ /HPF (Negative) 08/01/18 17:15 Urine Mucus Few /HPF 02/25/19 17:15 Urine Yeast (Budding) 2+ /HPF 08/01/18 17:15 Urine Creatinine 45.9 mg/dL (0.1-20.0) H 08/01/18 Unknown Urine Sodium 23 mmol/L 08/01/18 Unknown Influenza A (Rapid) Negative (Negative) 08/04/18 05:30 Influenza B (Rapid) Negative (Negative) 08/04/18 05:30 Blood Type O POSITIVE 08/03/18 09:38 Antibody Screen Negative 08/03/18 09:38 Crossmatch See Detail 08/03/18 09:38 Nutrition/Malnutrition Assess - Dietary Evaluation Nutrition/Malnutrition Findings: Nutrition Notes Start: 08/02/18 10:23 Freq: Status: Active Protocol: Document 08/02/18 10:23 CP (Rec: 08/02/18 10:38 CP [id number]) Co-Sign 08/02/18 10:23 LP Nutrition Notes 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 Pt. is NPO d/t DKA protocol. Pt. was in pain at time of visit, and couldn't speak. Percent of energy/protein needs met: 0%/0% Burn Absent Trauma Absent #1 Nutrition Diagnosis Inadequate oral intake Etiology DKA As Evidenced by Signs and Symptoms NPO status Is patient on ventilator? No Is Patient Ambulatory and/or Out of Bed No REE-([facility]-confined to bed) 1280.472 Kcal/Kg value to use for calculation 35 Approximate Energy Requirements Using 1588 kcal/Kg Calculation Used for Recommendations Kcal/kg Additional Notes PRO: 54-91g (1.2-2 g/kg) Fluid: 1mL/hr Nutrition Intervention Change Diet Order: Advance when medically feasible Goal #1 Diet advancement when feasible Anticipated Discharge Needs: Unable to determine at this time. Follow-Up By: 08/04/18 Additional Comments F/U: Diet advancement/diet education needs
[2018-08-04] MEDS ORDERED: HumaLOG SUB-Q SCH (11:30)
--- NOTE | 2018-08-04 11:34 | Progress Note ---
Assessment and Plan 48 y/o female with severe metabolic acidosis secondary to DKA 1. H/H 2. No acute evidence of bleed 3. Still feel stable for transfer 4. Would not reverse INR, let it drift down on its on. Will need daily INR's CCT 31 minutes. Subjective Date of service: 08/04/18 Principal diagnosis: DKA Interval history: Did have some hematemesis this am. H/H has been stable. INR down to 8 this am. Feels better, less combative and confused today. Objective - Constitutional Vitals: Vital Signs - 12hr 08/03/18 08/04/18 08/04/18 23:48 00:00 00:05 Temperature 98.2 F Pulse Rate 94 H 93 H Pulse Rate [ 93 H From Monitor] Respiratory 18 17 Rate Blood Pressure 137/88 137/88 O2 Sat by Pulse 97 99 Oximetry 08/04/18 08/04/18 08/04/18 00:31 01:00 01:30 Temperature Pulse Rate 97 H 96 H 98 H Pulse Rate [ From Monitor] Respiratory 17 16 16 Rate Blood Pressure 113/78 118/80 115/81 O2 Sat by Pulse 97 97 Oximetry 08/04/18 08/04/18 08/04/18 02:00 02:30 03:00 Temperature Pulse Rate 94 H 92 H 89 Pulse Rate [ From Monitor] Respiratory 17 17 16 Rate Blood Pressure 119/72 112/87 112/72 O2 Sat by Pulse 98 99 98 Oximetry 08/04/18 08/04/18 08/04/18 03:30 04:00 04:30 Temperature 98.0 F Pulse Rate 87 87 87 Pulse Rate [ 88 From Monitor] Respiratory 15 13 15 Rate Blood Pressure 112/78 142/89 128/85 O2 Sat by Pulse 100 99 99 Oximetry 08/04/18 08/04/18 08/04/18 05:00 05:30 06:00 Temperature Pulse Rate 89 88 87 Pulse Rate [ From Monitor] Respiratory 14 15 16 Rate Blood Pressure 151/97 135/90 122/77 O2 Sat by Pulse 98 97 98 Oximetry 08/04/18 08:00 Temperature 98.6 F Pulse Rate Pulse Rate [ From Monitor] Respiratory Rate Blood Pressure O2 Sat by Pulse Oximetry General appearance: Present: no acute distress - EENT Eyes: PERRL, EOM intact ENT: hearing intact, poor dentition - Neck Neck: supple, normal ROM - Respiratory Respiratory effort: normal Respiratory: bilateral: CTA - Breasts Breasts: deferred - Cardiovascular Rhythm: regular Heart Sounds: Present: S1 & S2 - Gastrointestinal Rectal Exam: deferred - Genitourinary Female genitourinary: deferred - Integumentary Integumentary: clear, warm, dry - Musculoskeletal Musculoskeletal: strength equal bilaterally - Neurologic Neurologic: CNII-XII intact - Labs CBC & Chem 7: 08/04/18 05:31 08/04/18 05:31 Labs: Abnormal lab results 08/03/18 08/03/18 08/03/18 Range/Units 09:38 09:45 11:01 RBC (3.65-5.03) M/mm3 Hgb (10.1-14.3) gm/dl Hct (30.3-42.9) % MCH (28-32) pg RDW (13.2-15.2) % PT (12.2-14.9) Sec. INR (0.87-1.13) Sodium (137-145) mmol/L Carbon Dioxide (22-30) mmol/L BUN (7-17) mg/dL Creatinine (0.7-1.2) mg/dL Glucose (65-100) mg/dL POC Glucose 185 H 143 H (70-105) Calcium (8.4-10.2) mg/dL Phosphorus (2.5-4.5) mg/dL AST (5-40) units/L Alkaline Phosphatase (35-129) units/L Total Protein (6.3-8.2) g/dL Albumin (3.9-5) g/dL Crossmatch See Detail 08/03/18 08/03/18 08/03/18 Range/Units 13:23 17:04 21:08 RBC (3.65-5.03) M/mm3 Hgb (10.1-14.3) gm/dl Hct (30.3-42.9) % MCH (28-32) pg RDW (13.2-15.2) % PT (12.2-14.9) Sec. INR (0.87-1.13) Sodium (137-145) mmol/L Carbon Dioxide 21 L (22-30) mmol/L BUN 34 H (7-17) mg/dL Creatinine 2.4 H (0.7-1.2) mg/dL Glucose (65-100) mg/dL POC Glucose 299 H 257 H (70-105) Calcium 6.7 L (8.4-10.2) mg/dL Phosphorus 2.30 L D (2.5-4.5) mg/dL AST (5-40) units/L Alkaline Phosphatase (35-129) units/L Total Protein (6.3-8.2) g/dL Albumin (3.9-5) g/dL Crossmatch 08/03/18 08/04/18 08/04/18 Range/Units 21:08 00:45 05:31 RBC 2.93 L (3.65-5.03) M/mm3 Hgb 8.5 L 7.8 L 8.0 L (10.1-14.3) gm/dl Hct 25.9 L D 23.3 L 24.2 L (30.3-42.9) % MCH 27 L (28-32) pg RDW 21.0 H (13.2-15.2) % PT (12.2-14.9) Sec. INR (0.87-1.13) Sodium (137-145) mmol/L Carbon Dioxide (22-30) mmol/L BUN (7-17) mg/dL Creatinine (0.7-1.2) mg/dL Glucose (65-100) mg/dL POC Glucose (70-105) Calcium (8.4-10.2) mg/dL Phosphorus (2.5-4.5) mg/dL AST (5-40) units/L Alkaline Phosphatase (35-129) units/L Total Protein (6.3-8.2) g/dL Albumin (3.9-5) g/dL Crossmatch 08/04/18 08/04/18 08/04/18 Range/Units 05:31 05:54 09:38 RBC (3.65-5.03) M/mm3 Hgb (10.1-14.3) gm/dl Hct (30.3-42.9) % MCH (28-32) pg RDW (13.2-15.2) % PT 77.7 H (12.2-14.9) Sec. INR 8.67 H* (0.87-1.13) Sodium 135 L (137-145) mmol/L Carbon Dioxide 19 L (22-30) mmol/L BUN 34 H (7-17) mg/dL Creatinine 2.1 H (0.7-1.2) mg/dL Glucose 296 H (65-100) mg/dL POC Glucose (70-105) Calcium 6.6 L (8.4-10.2) mg/dL Phosphorus (2.5-4.5) mg/dL AST 127 H (5-40) units/L Alkaline Phosphatase 262 H (35-129) units/L Total Protein 4.8 L (6.3-8.2) g/dL Albumin 2.7 L (3.9-5) g/dL Crossmatch Medications & Allergies - Medications Allergies/Adverse Reactions: Allergies No Known Allergies Allergy (Verified 12/03/16 23:01) Home Medications: Home Medications Medication Instructions Recorded Confirmed Last Taken Type Metoprolol [Lopressor TAB] 25 mg PO BID #60 tablet 12/29/16 01/29/17 Unknown Rx Famotidine [Pepcid] 20 mg PO DAILY #30 tablet 02/04/17 Unknown Rx Furosemide [Lasix TAB] 40 mg PO 0600,1800 #60 tablet 02/04/17 Unknown Rx Insulin NPH/Regular [NovoLIN 70/30] 18 unit SQ BIDDIAB #1 vial 02/04/17 Unknown Rx Metoprolol [Lopressor TAB] 50 mg PO TID #90 tablet 02/04/17 Unknown Rx Coumadin 08/02/18 Unknown History Active Medications: Generic Name Dose Route Start Last Admin Trade Name Freq PRN Reason Stop Dose Admin Albuterol 2.5 mg 08/01/18 17:42 Proventil IH Q3HRT PRN Shortness Of Breath Aspirin 325 mg 08/02/18 10:00 08/04/18 09:28 Ecotrin PO 325 mg QDAY ULI Administration Dextrose 0 ml 08/01/18 17:42 D50w (25gm) Syringe IV PRN PRN Hypoglycemia Famotidine 20 mg 08/02/18 10:00 08/04/18 09:29 Pepcid PO 20 mg DAILY ULI Administration Hydralazine HCl 10 mg 08/01/18 17:47 Apresoline IV TID PRN Hypertension Insulin Human Regular 100 100 mls @ 1 mls/hr 08/01/18 18:00 08/03/18 11:20 units/ Sodium Chloride IV 0 units/hr TITR ULI 0 mls/hr Titration Protocol 1 UNITS/HR Insulin Glargine 15 units 08/04/18 22:00 Lantus SUB-Q QHS ULI Insulin Human Lispro 0 unit 08/03/18 12:00 08/04/18 08:25 Humalog SUB-Q 4 unit ACHS ULI Administration Protocol Insulin Human Lispro 5 unit 08/04/18 11:30 Humalog SUB-Q AC ULI Potassium Phos/Sodium Phos 1 each 08/04/18 14:00 Phos-Nak PO Q8HR ULI Sodium Bicarbonate 650 mg 08/04/18 10:00 08/04/18 09:29 Sodium Bicarbonate PO 650 mg BID ULI Administration Sodium Chloride 10 ml 08/01/18 22:00 08/04/18 09:29 Sodium Chloride Flush Syringe 10 Ml IV 10 ml BID ULI Administration Sodium Chloride 10 ml 08/01/18 17:42 Sodium Chloride Flush Syringe 10 Ml IV PRN PRN LINE FLUSH Sodium Phosphate 250 mg 08/03/18 10:00 08/04/18 09:28 K-Phos Neutral PO 250 mg QID ULI Administration
--- NOTE | 2018-08-04 11:41 | Progress Note ---
Assessment and Plan [facility] records received - pt underwent CABG x 2 and mitral valve replacement using 27mm [employer] Masters mechanical valve and placement of left atrial appendage clip using 45mm Atricure clip on 01/06/[address] Efra Reese. INR trending downwards. Cont present cardiac management, systemic AC held. She will ultimately require resumption of systemic AC once anemia stable and coagulopathy resolved if no contraindication. Pt c/o hematemesis this AM - recommend GI consultation. Also, recommend hematology consultation for recommendations regarding it training specialist systemic AC. The patient has been seen in conjunction with Dr. Hong who agrees with the assessment and plan of care. - Patient Problems (1) DKA (diabetic ketoacidoses) Current Visit: Yes Status: Acute Qualifiers: Diabetes mellitus complication detail: with coma (2) Acute on chronic renal failure Current Visit: Yes Status: Acute (3) Acidosis Current Visit: Yes Status: Acute (4) Hyperkalemia Current Visit: Yes Status: Acute (5) Anemia Current Visit: Yes Status: Acute (6) Coagulopathy Current Visit: Yes Status: Acute (7) Elevated troponin Current Visit: Yes Status: Acute (8) Sepsis Current Visit: Yes Status: Acute Qualifiers: Sepsis type: sepsis due to unspecified organism Qualified Code(s): A41.9 - Sepsis, unspecified organism (9) Altered mental status Current Visit: Yes Status: Acute Qualifiers: Altered mental status type: unspecified Qualified Code(s): R41.82 - Altered mental status, unspecified (10) History of cardiac arrest Current Visit: Yes Status: Chronic (11) Diabetes Current Visit: Yes Status: Chronic (12) Cardiomyopathy Current Visit: Yes Status: Chronic Qualifiers: Cardiomyopathy type: unspecified Qualified Code(s): I42.9 - Cardiomyopathy, unspecified (13) Hypertension Current Visit: Yes Status: Chronic (14) H/O mitral valve replacement with mechanical valve Current Visit: Yes Status: Chronic (15) Medical non-compliance Current Visit: Yes Status: Chronic Subjective Date of service: 08/04/18 Principal diagnosis: DKA Interval history: pt resting in bed, no current cardiac complaints. in SR on telemetry. off insulin gtt. Objective Last Vital Signs Temp 98.6 F 08/04/18 08:00 Pulse 87 08/04/18 06:00 Resp 16 08/04/18 06:00 BP 122/77 08/04/18 06:00 Pulse Ox 98 08/04/18 06:00 - Physical Examination General: No Apparent Distress HEENT: Positive: PERRL, Normocephaly, Mucus Membranes Moist Neck: Positive: neck supple, trachea midline Cardiac: Positive: Reg Rate and Rhythm, S1/S2 Lungs: Positive: Decreased Breath Sounds Neuro: Positive: Grossly Intact Abdomen: Negative: Tender Skin: Negative: Rash Musculoskeletal: No Pain Extremities: Absent: edema - Labs and Meds Cardiac Enzymes 08/04/18 Range/Units 09:38 AST 127 H (5-40) units/L Coagulation 08/04/18 Range/Units 05:54 PT 77.7 H (12.2-14.9) Sec. INR 8.67 H* (0.87-1.13) CBC 08/03/18 08/04/18 08/04/18 Range/Units 21:08 00:45 05:31 WBC 7.2 (4.5-11.0) K/mm3 RBC 2.93 L (3.65-5.03) M/mm3 Hgb 8.5 L 7.8 L 8.0 L (10.1-14.3) gm/dl Hct 25.9 L D 23.3 L 24.2 L (30.3-42.9) % Plt Count 175 (140-440) K/mm3 Lymph # 1.8 (1.2-5.4) K/mm3 [place] # 0.3 (0.0-0.8) K/mm3 Eos # 0.2 (0.0-0.4) K/mm3 Baso # 0.1 (0.0-0.1) K/mm3 Comprehensive Metabolic Panel 08/03/18 08/04/18 08/04/18 Range/Units 21:08 05:31 09:38 Sodium 141 135 L (137-145) mmol/L Potassium 3.6 4.4 D (3.6-5.0) mmol/L Chloride 106.8 102.7 (98-107) mmol/L Carbon Dioxide 21 L 19 L (22-30) mmol/L BUN 34 H 34 H (7-17) mg/dL Creatinine 2.4 H 2.1 H (0.7-1.2) mg/dL Glucose 89 296 H (65-100) mg/dL Calcium 6.7 L 6.6 L (8.4-10.2) mg/dL Direct Bilirubin < 0.2 (0-0.2) mg/dL Indirect Bilirubin 0.2 mg/dL AST 127 H (5-40) units/L ALT 40 (7-56) units/L Alkaline Phosphatase 262 H (35-129) units/L Total Protein 4.8 L (6.3-8.2) g/dL Albumin 2.7 L (3.9-5) g/dL - Imaging and Cardiology EKG: report reviewed, image reviewed Echo: report reviewed (07/2018: EF 40%, mild to mod LVH, LA and RA dilated, mod TR and CA, mechanical valve in mitral position that appears to be functioning properly. 11/2016 showed EF 40-45%, abnormal diastolic function, trace MR, mild TR, RVSP 36mmHg. ) - Telemetry EKG Rhythm: Sinus Rhythm - EKG Sinus rhythms and dysrhythmias: sinus rhythm
--- NOTE | 2018-08-04 13:59 | Gastroenterology Consultation ---
<BRIGIDA JUAREZ - Last Filed: 08/04/18 14:37> History of Present Illness - Reason for Consult Consult date: 08/04/18 GI bleed Requesting physician: BOUCHRA SHERIFF - History of Present Illness Patient is a 48 y/o female with PMH of HTN, CAD, DE, cardiac arrest, s/p CABG, s/p mitral valve replacement, DM, HLP, CKD, chronic anemia and noncompliance who was admitted for DKA, sepsis, metabolic acidosis, ARF, and coumadin toxicity with INR >17 upon admission. GI has been consulted for GI bleed. This morning patient was resting in bed w/o acute distress. Reports 1 episode of hematemesis this am with dark red bloody emesis. No melena or hematochezia. BM this am with dark green stool per pt/nursing. Denies CP, SOB, abd pain, diarrhea, or constipation. No NSAID use. No hx of PUD or liver disease. Patient is previously known to our service from prior hospitalizations with last EGD on 10/2016 for N/V that showed erosive esophagitis and gastritis. Anticoagulants currently on hold. Past History Past Medical History: other (as per HPI) Past Surgical History: CABG, Other (mitral valve replacement) Social history: single. denies: smoking, alcohol abuse Family history: diabetes, hypertension Medications and Allergies Allergies Allergy/AdvReac Type Severity Reaction Status Date / Time No Known Allergies Allergy Verified 12/03/16 23:01 Home Medications Medication Instructions Recorded Confirmed Last Taken Type Metoprolol [Lopressor TAB] 25 mg PO BID #60 tablet 12/29/16 01/29/17 Unknown Rx Famotidine [Pepcid] 20 mg PO DAILY #30 tablet 02/04/17 Unknown Rx Furosemide [Lasix TAB] 40 mg PO 0600,1800 #60 tablet 02/04/17 Unknown Rx Insulin NPH/Regular [NovoLIN 70/30] 18 unit SQ BIDDIAB #1 vial 02/04/17 Unknown Rx Metoprolol [Lopressor TAB] 50 mg PO TID #90 tablet 02/04/17 Unknown Rx Coumadin 08/02/18 Unknown History Active Meds: Active Medications Albuterol (Proventil) 2.5 mg IH Q3HRT PRN PRN Reason: Shortness Of Breath Aspirin (Ecotrin) 325 mg PO QDAY [facility] Last Admin: 08/04/18 09:28 Dose: 325 mg Documented by: Dextrose (D50w (25gm) Syringe) 0 ml IV PRN PRN PRN Reason: Hypoglycemia Famotidine (Pepcid) 20 mg PO DAILY ON LICENSE OF [facility] Last Admin: 08/04/18 09:29 Dose: 20 mg Documented by: Hydralazine HCl (Apresoline) 10 mg IV TID PRN PRN Reason: Hypertension Insulin Human Regular 100 (units/ Sodium Chloride) 100 mls @ 1 mls/hr IV TITR ON LICENSE OF [facility]; Protocol Last Titration: 08/03/18 11:20 Dose: 0 units/hr, 0 mls/hr Documented by: Pantoprazole Sodium 80 mg/ (Sodium Chloride) 100 mls @ 10 mls/hr IV DIRECT ON LICENSE OF [facility] Insulin Glargine (Lantus) 15 units SUB-Q QHS ON LICENSE OF [facility] Insulin Human Lispro (Humalog) 0 unit SUB-Q ACHS ON LICENSE OF [facility]; Protocol Last Admin: 08/04/18 12:25 Dose: 6 unit Documented by: Insulin Human Lispro (Humalog) 5 unit SUB-Q AC ON LICENSE OF [facility] Last Admin: 08/04/18 12:31 Dose: 5 unit Documented by: Potassium Phos/Sodium Phos (Phos-Nak) 1 each PO Q8HR ON LICENSE OF [facility] Sodium Bicarbonate (Sodium Bicarbonate) 650 mg PO BID ON LICENSE OF [facility] Last Admin: 08/04/18 09:29 Dose: 650 mg Documented by: Sodium Chloride (Sodium Chloride Flush Syringe 10 Ml) 10 ml IV BID ON LICENSE OF [facility] Last Admin: 08/04/18 09:29 Dose: 10 ml Documented by: Sodium Chloride (Sodium Chloride Flush Syringe 10 Ml) 10 ml IV PRN PRN PRN Reason: LINE FLUSH Sodium Phosphate (K-Phos Neutral) 250 mg PO QID ON LICENSE OF [facility] Last Admin: 08/04/18 09:28 Dose: 250 mg Documented by: medications reviewed/updated as required Review of Systems - Review of Systems All systems: negative Gastrointestinal: hematemesis Exam - Constitutional Vital Signs: Temp Pulse Resp BP Pulse Ox 98.3 F 94 H 23 123/65 100 08/04/18 12:00 08/04/18 12:31 08/04/18 12:31 08/04/18 12:31 08/04/18 12:01 General appearance: no acute distress, other (thin appearing) - Respiratory Respiratory: bilateral: diminished - Cardiovascular Rhythm: regular Heart Sounds: Present: S1 & S2 - Gastrointestinal General gastrointestinal: Present: soft, non-tender, non-distended, normal bowel sounds - Neurologic Neurological: alert and oriented x3 - Labs CBC & Chem 7: 08/04/18 13:50 08/04/18 05:31 Lab Results: Laboratory Results - last 24 hr 08/03/18 08/03/18 08/03/18 09:38 17:04 21:08 WBC RBC Hgb Hct MCV MCH MCHC RDW Plt Count Lymph % (Auto) Craig % (Auto) Eos % (Auto) Baso % (Auto) Lymph # Craig # Eos # Baso # Seg Neutrophils % Seg Neutrophils # PT INR Sodium 141 Potassium 3.6 Chloride 106.8 Carbon Dioxide 21 L Anion Gap 17 BUN 34 H Creatinine 2.4 H Estimated GFR 26 BUN/Creatinine Ratio 14 Glucose 89 POC Glucose 257 H Calcium 6.7 L Phosphorus 2.30 L D Magnesium 2.10 Total Bilirubin Direct Bilirubin Indirect Bilirubin AST ALT Alkaline Phosphatase Total Protein Albumin Albumin/Globulin Ratio Influenza A (Rapid) Influenza B (Rapid) Crossmatch See Detail 08/03/18 08/03/18 08/04/18 21:08 21:57 00:45 WBC RBC Hgb 8.5 L 7.8 L Hct 25.9 L D 23.3 L MCV MCH MCHC RDW Plt Count Lymph % (Auto) Craig % (Auto) Eos % (Auto) Baso % (Auto) Lymph # Craig # Eos # Baso # Seg Neutrophils % Seg Neutrophils # PT INR Sodium Potassium Chloride Carbon Dioxide Anion Gap BUN Creatinine Estimated GFR BUN/Creatinine Ratio Glucose POC Glucose 87 Calcium Phosphorus Magnesium Total Bilirubin Direct Bilirubin Indirect Bilirubin AST ALT Alkaline Phosphatase Total Protein Albumin Albumin/Globulin Ratio Influenza A (Rapid) Influenza B (Rapid) Crossmatch 08/04/18 08/04/18 08/04/18 05:30 05:31 05:31 WBC 7.2 RBC 2.93 L Hgb 8.0 L Hct 24.2 L MCV 83 MCH 27 L MCHC 33 RDW 21.0 H Plt Count 175 Lymph % (Auto) 24.3 Craig % (Auto) 4.4 Eos % (Auto) 2.1 Baso % (Auto) 0.9 Lymph # 1.8 Craig # 0.3 Eos # 0.2 Baso # 0.1 Seg Neutrophils % 68.3 Seg Neutrophils # 4.9 PT INR Sodium 135 L Potassium 4.4 D Chloride 102.7 Carbon Dioxide 19 L Anion Gap 18 BUN 34 H Creatinine 2.1 H Estimated GFR 30 BUN/Creatinine Ratio 16 Glucose 296 H POC Glucose Calcium 6.6 L Phosphorus 3.30 D Magnesium 2.10 Total Bilirubin Direct Bilirubin Indirect Bilirubin AST ALT Alkaline Phosphatase Total Protein Albumin Albumin/Globulin Ratio Influenza A (Rapid) Negative Influenza B (Rapid) Negative Crossmatch 08/04/18 08/04/18 08/04/18 05:54 09:38 11:35 WBC RBC Hgb Hct MCV MCH MCHC RDW Plt Count Lymph % (Auto) [place] % (Auto) Eos % (Auto) Baso % (Auto) Lymph # Craig # Eos # Baso # Seg Neutrophils % Seg Neutrophils # PT 77.7 H INR 8.67 H* Sodium Potassium Chloride Carbon Dioxide Anion Gap BUN Creatinine Estimated GFR BUN/Creatinine Ratio Glucose POC Glucose 321 H Calcium Phosphorus Magnesium Total Bilirubin 0.40 Direct Bilirubin < 0.2 Indirect Bilirubin 0.2 AST 127 H ALT 40 Alkaline Phosphatase 262 H Total Protein 4.8 L Albumin 2.7 L Albumin/Globulin Ratio 1.3 Influenza A (Rapid) Influenza B (Rapid) Crossmatch Assessment and Plan 1.hematemesis -INR 8.67-trending down -H/H 7.8/23.3 -continue to monitor H/H and transfuse as needed -continue to hold blood thinning medications -reports 1 episode of vomiting dark red bloody emesis this am- no melena or hematochezia. Denies abd pain. -currently HD stable -last EGD 10/2016 showed erosive esophagitis and gastritis -etiology unclear- possible M-W tear vs ulcer vs other -will tentatively schedule EGD for tomorrow pending INR <2 -clear liquids now, then NPO after MM -start on protonix drip -continue supportive care -will follow 2.SIRS 3.Dka 4.ARF 5.CAD 6.coagulopathy due to Coumadin 7.status post mechanical mitral valve <SAMUEL DALE - Last Filed: 08/04/18 19:12> Medications and Allergies Active Meds: Active Medications Albuterol (Proventil) 2.5 mg IH Q3HRT PRN PRN Reason: Shortness Of Breath Aspirin (Ecotrin) 325 mg PO QDAY [facility] Last Admin: 08/04/18 09:28 Dose: 325 mg Documented by: Dextrose (D50w (25gm) Syringe) 0 ml IV PRN PRN PRN Reason: Hypoglycemia Famotidine (Pepcid) 20 mg PO DAILY ON LICENSE OF [facility] Last Admin: 08/04/18 09:29 Dose: 20 mg Documented by: Hydralazine HCl (Apresoline) 10 mg IV TID PRN PRN Reason: Hypertension Pantoprazole Sodium 80 mg/ (Sodium Chloride) 100 mls @ 10 mls/hr IV DIRECT [facility] Sodium Chloride (Nacl 0.45% 1000 Ml) 1,000 mls @ 75 mls/hr IV DIRECT [facility] Insulin Glargine (Lantus) 20 units SUB-Q QHS [facility] Insulin Human Lispro (Humalog) 0 unit SUB-Q ACHS ON LICENSE OF [facility]; Protocol Last Admin: 08/04/18 12:25 Dose: 6 unit Documented by: Insulin Human Lispro (Humalog) 7 unit SUB-Q AC ON LICENSE OF [facility] Potassium Phos/Sodium Phos (Phos-Nak) 1 each PO Q8HR ON LICENSE OF [facility] Sodium Bicarbonate (Sodium Bicarbonate) 650 mg PO BID ON LICENSE OF [facility] Last Admin: 08/04/18 09:29 Dose: 650 mg Documented by: Sodium Chloride (Sodium Chloride Flush Syringe 10 Ml) 10 ml IV BID ON LICENSE OF [facility] Last Admin: 08/04/18 09:29 Dose: 10 ml Documented by: Sodium Chloride (Sodium Chloride Flush Syringe 10 Ml) 10 ml IV PRN PRN PRN Reason: LINE FLUSH Sodium Phosphate (K-Phos Neutral) 250 mg PO QID ON LICENSE OF [facility] Last Admin: 08/04/18 09:28 Dose: 250 mg Documented by: Exam - Constitutional Vital Signs: Temp Pulse Resp BP Pulse Ox 97.9 F 88 18 146/83 98 08/04/18 16:37 08/04/18 16:37 08/04/18 16:37 08/04/18 16:37 08/04/18 16:37 - Labs CBC & Chem 7: 08/04/18 13:50 08/04/18 05:31 Lab Results: Laboratory Results - last 24 hr 08/03/18 08/03/18 08/03/18 21:08 21:08 21:57 WBC RBC Hgb 8.5 L Hct 25.9 L D MCV MCH MCHC RDW Plt Count Lymph % (Auto) Craig % (Auto) Eos % (Auto) Baso % (Auto) Lymph # Craig # Eos # Baso # Seg Neutrophils % Seg Neutrophils # PT INR Sodium 141 Potassium 3.6 Chloride 106.8 Carbon Dioxide 21 L Anion Gap 17 BUN 34 H Creatinine 2.4 H Estimated GFR 26 BUN/Creatinine Ratio 14 Glucose 89 POC Glucose 87 Calcium 6.7 L Phosphorus 2.30 L D Magnesium 2.10 Total Bilirubin Direct Bilirubin Indirect Bilirubin AST ALT Alkaline Phosphatase Total Protein Albumin Albumin/Globulin Ratio Influenza A (Rapid) Influenza B (Rapid) 08/04/18 08/04/18 08/04/18 00:45 05:30 05:31 WBC 7.2 RBC 2.93 L Hgb 7.8 L 8.0 L Hct 23.3 L 24.2 L MCV 83 MCH 27 L MCHC 33 RDW 21.0 H Plt Count 175 Lymph % (Auto) 24.3 Craig % (Auto) 4.4 Eos % (Auto) 2.1 Baso % (Auto) 0.9 Lymph # 1.8 Craig # 0.3 Eos # 0.2 Baso # 0.1 Seg Neutrophils % 68.3 Seg Neutrophils # 4.9 PT INR Sodium Potassium Chloride Carbon Dioxide Anion Gap BUN Creatinine Estimated GFR BUN/Creatinine Ratio Glucose POC Glucose Calcium Phosphorus Magnesium Total Bilirubin Direct Bilirubin Indirect Bilirubin AST ALT Alkaline Phosphatase Total Protein Albumin Albumin/Globulin Ratio Influenza A (Rapid) Negative Influenza B (Rapid) Negative 08/04/18 08/04/18 08/04/18 05:31 05:54 09:38 WBC RBC Hgb Hct MCV MCH MCHC RDW Plt Count Lymph % (Auto) Craig % (Auto) Eos % (Auto) Baso % (Auto) Lymph # Craig # Eos # Baso # Seg Neutrophils % Seg Neutrophils # PT 77.7 H INR 8.67 H* Sodium 135 L Potassium 4.4 D Chloride 102.7 Carbon Dioxide 19 L Anion Gap 18 BUN 34 H Creatinine 2.1 H Estimated GFR 30 BUN/Creatinine Ratio 16 Glucose 296 H POC Glucose Calcium 6.6 L Phosphorus 3.30 D Magnesium 2.10 Total Bilirubin 0.40 Direct Bilirubin < 0.2 Indirect Bilirubin 0.2 AST 127 H ALT 40 Alkaline Phosphatase 262 H Total Protein 4.8 L Albumin 2.7 L Albumin/Globulin Ratio 1.3 Influenza A (Rapid) Influenza B (Rapid) 0208/04/18 08/04/18 11:35 13:50 18:42 WBC RBC Hgb 7.8 L Hct 24.4 L MCV MCH MCHC RDW Plt Count Lymph % (Auto) Craig % (Auto) Eos % (Auto) Baso % (Auto) Lymph # Craig # Eos # Baso # Seg Neutrophils % Seg Neutrophils # PT INR Sodium Potassium Chloride Carbon Dioxide Anion Gap BUN Creatinine Estimated GFR BUN/Creatinine Ratio Glucose POC Glucose 321 H < 40 L Calcium Phosphorus Magnesium Total Bilirubin Direct Bilirubin Indirect Bilirubin AST ALT Alkaline Phosphatase Total Protein Albumin Albumin/Globulin Ratio Influenza A (Rapid) Influenza B (Rapid) Assessment and Plan Pt seen and examined. Agree with note above. If bleeding subsides and H/H does not drop while holding warfarin, can likely hold off on endoscopy. However, will make NPO at midnight in case EGD is needed and if INR is in safe range to do procedure (~2.5)
[2018-08-04] MEDS ORDERED: PROTONIX 80 MG in NACL 0.9% 100 ML IV SCH (14:00)
[2018-08-04] MEDS: PHOS-NAK PO SCH ×2 (14:09→22:52)
[2018-08-04 14:21] LABS: Hematocrit 24.4 % (30.3-42.9); Hemoglobin 7.8 gm/dl (10.1-14.3)
[2018-08-04] MEDS ORDERED: NACL 0.45% 1000 ML 1,000 ML IV SCH (17:00)
[2018-08-04] MEDS: D50W (25GM) Syringe IV PRN (19:00)
[2018-08-04 19:57] LABS: Hematocrit 28.9 % (30.3-42.9); Hemoglobin 9.4 gm/dl (10.1-14.3)
[2018-08-04 20:15] LABS: Iron 97 ug/dL (37-170); Total Iron Binding Capacity 258 mcg/dL (250-450)
[2018-08-04] MEDS ORDERED: LANTUS SUB-Q SCH (22:00)
[2018-08-04] MEDS: LANTUS SUB-Q SCH (22:58)
[2018-08-05 06:36] LABS: Basophils % (Auto) 0.8 % (0.0-1.8); Eosinophils # (Auto) 0.1 K/mm3 (0.0-0.4); Eosinophils % (Auto) 2.6 % (0.0-4.3); Hematocrit 21.8 % (30.3-42.9); Hemoglobin 7.1 gm/dl (10.1-14.3); Lymphocytes # (Auto) 1.5 K/mm3 (1.2-5.4); Lymphocytes % (Auto) 26.3 % (13.4-35.0); Mean Corpuscular HGB Conc 33 % (30-34); Mean Corpuscular Volume 83 fl (79-97); Monocytes # (Auto) 0.3 K/mm3 (0.0-0.8); Monocytes % (Auto) 5.7 % (0.0-7.3); Platelet Count 154 K/mm3 (140-440); Red Blood Count 2.63 M/mm3 (3.65-5.03)
[2018-08-05 06:40] LABS: Red Cell Distribution Width 20.5 % (13.2-15.2)
[2018-08-05 06:59] LABS: Calcium 6.4 mg/dL (8.4-10.2)
--- NOTE | 2018-08-05 07:29 | Hem/Onc Progress Note ---
Assessment and Plan 1. Elevated INR secondary to Coumadin for mechanical mitral valve. The INR was elevated. It is slowly coming down. The patient received blood transfusion. The patient had hematemesis. GI has been consulted. 2. Anemia, transfusion given. 3. Diabetic ketoacidosis. 4. Admitted for confusion. 5. Treated for sepsis. 6. Renal impairment. 7. Pharmacy will dose the Coumadin at this time as INR is coming down. We will observe. 8. I will follow the patient during inpatient stay. inr 2.4 - as per pharmacy - vit k was not given - but based on the trend it appears it was given repeat INR - coumadin 5 mg for now - pharmacy will try to call tyshawn to know how many mg coumadin pt is on pt says she took 1 and 1 and half tab a day - Patient Problems (1) Coagulopathy Current Visit: Yes Status: Acute Subjective Date of service: 08/05/18 Objective - Constitutional Vitals: Last Vital Signs Temp 98.1 F 08/04/18 23:30 Pulse 83 08/04/18 23:30 Resp 18 08/04/18 23:30 BP 135/82 08/04/18 23:30 Pulse Ox 100 08/04/18 23:30 Pain Intensity (0-10): denies any pain General appearance: no acute distress Performance status: 2- selfcare, ambulatory - EENT Eyes: EOM intact ENT: clear oral mucosa Lymph node exam: negative cervical - Neck Neck: normal ROM - Respiratory Respiratory effort: Positive: normal Respiratory: negative: CTA - Cardiovascular Heart Sounds: Present: click (mechanical valve) Extremities: No edema - Gastrointestinal General gastrointestinal: Present: soft, non-tender Rectal Exam: deferred - Genitourinary Female genitourinary: Present: deferred - Integumentary Integumentary: warm - Musculoskeletal Musculoskeletal: strength equal bilaterally - Neurologic Neurologic: moves all extremities - Labs Lab Results: Laboratory Results - last 24 hr 08/04/18 08/04/18 08/04/18 05:54 09:38 11:35 WBC RBC Hgb Hct MCV MCH MCHC RDW Plt Count Lymph % (Auto) [place] % (Auto) Eos % (Auto) Baso % (Auto) Lymph # [place] # Eos # Baso # Seg Neutrophils % Seg Neutrophils # INR 8.67 H* Sodium Potassium Chloride Carbon Dioxide Anion Gap BUN Creatinine Estimated GFR BUN/Creatinine Ratio Glucose POC Glucose 321 H Calcium Iron TIBC Ferritin Total Bilirubin 0.40 Direct Bilirubin < 0.2 Indirect Bilirubin 0.2 AST 127 H ALT 40 Alkaline Phosphatase 262 H Total Protein 4.8 L Albumin 2.7 L Albumin/Globulin Ratio 1.3 Vitamin B12 Folate 08/04/18 08/04/18 08/04/18 13:50 18:42 19:22 WBC RBC Hgb 7.8 L 9.4 L Hct 24.4 L 28.9 L MCV MCH MCHC RDW Plt Count Lymph % (Auto) [place] % (Auto) Eos % (Auto) Baso % (Auto) Lymph # [place] # Eos # Baso # Seg Neutrophils % Seg Neutrophils # INR Sodium Potassium Chloride Carbon Dioxide Anion Gap BUN Creatinine Estimated GFR BUN/Creatinine Ratio Glucose POC Glucose < 40 L Calcium Iron TIBC Ferritin Total Bilirubin Direct Bilirubin Indirect Bilirubin AST ALT Alkaline Phosphatase Total Protein Albumin Albumin/Globulin Ratio Vitamin B12 Folate 08/04/18 08/04/18 08/04/18 19:22 19:22 19:22 WBC RBC Hgb Hct MCV MCH MCHC RDW Plt Count Lymph % (Auto) [place] % (Auto) Eos % (Auto) Baso % (Auto) Lymph # [place] # Eos # Baso # Seg Neutrophils % Seg Neutrophils # INR Sodium Potassium Chloride Carbon Dioxide Anion Gap BUN Creatinine Estimated GFR BUN/Creatinine Ratio Glucose 251 H POC Glucose Calcium Iron 97 TIBC 258 Ferritin 258.8 Total Bilirubin Direct Bilirubin Indirect Bilirubin AST ALT Alkaline Phosphatase Total Protein Albumin Albumin/Globulin Ratio Vitamin B12 Folate 08/04/18 08/04/18 08/04/18 19:36 19:36 21:44 WBC RBC Hgb Hct MCV MCH MCHC RDW Plt Count Lymph % (Auto) [place] % (Auto) Eos % (Auto) Baso % (Auto) Lymph # [place] # Eos # Baso # Seg Neutrophils % Seg Neutrophils # INR Sodium Potassium Chloride Carbon Dioxide Anion Gap BUN Creatinine Estimated GFR BUN/Creatinine Ratio Glucose POC Glucose 228 H Calcium Iron TIBC Ferritin Total Bilirubin Direct Bilirubin Indirect Bilirubin AST ALT Alkaline Phosphatase Total Protein Albumin Albumin/Globulin Ratio Vitamin B12 > 2000 H Folate 8.75 08/05/18 08/05/18 06:16 06:16 WBC 5.5 RBC 2.63 L Hgb 7.1 L Hct 21.8 L D MCV 83 MCH 27 L MCHC 33 RDW 20.5 H Plt Count 154 Lymph % (Auto) 26.3 [place] % (Auto) 5.7 Eos % (Auto) 2.6 Baso % (Auto) 0.8 Lymph # 1.5 [place] # 0.3 Eos # 0.1 Baso # 0.0 Seg Neutrophils % 64.6 Seg Neutrophils # 3.6 INR Sodium 136 L Potassium 4.6 Chloride 105.3 Carbon Dioxide 19 L Anion Gap 16 BUN 32 H Creatinine 2.0 H Estimated GFR 32 BUN/Creatinine Ratio 16 Glucose 140 H POC Glucose Calcium 6.4 L Iron TIBC Ferritin Total Bilirubin Direct Bilirubin Indirect Bilirubin AST ALT Alkaline Phosphatase Total Protein Albumin Albumin/Globulin Ratio Vitamin B12 Folate Medications & Allergies - Medications Allergies/Adverse Reactions: Allergies No Known Allergies Allergy (Verified 12/03/16 23:01) Home Medications: Home Medications Medication Instructions Recorded Confirmed Last Taken Type RX: Metoprolol [Lopressor TAB] 25 mg PO BID #60 tablet 12/29/16 01/29/17 Unknown Rx RX: Famotidine [Pepcid] 20 mg PO DAILY #30 tablet 02/04/17 Unknown Rx RX: Furosemide [Lasix TAB] 40 mg PO 0600,1800 #60 tablet 02/04/17 Unknown Rx RX: Insulin NPH/Regular [NovoLIN 18 unit SQ BIDDIAB #1 vial 02/04/17 Unknown Rx 70/30] RX: Metoprolol [Lopressor TAB] 50 mg PO TID #90 tablet 02/04/17 Unknown Rx Coumadin 08/02/18 Unknown History Active Medications: Generic Name Dose Route Start Last Admin Trade Name Freq PRN Reason Stop Dose Admin Albuterol 2.5 mg 08/01/18 17:42 Proventil IH Q3HRT PRN Shortness Of Breath Aspirin 325 mg 08/02/18 10:00 08/04/18 09:28 Ecotrin PO 325 mg QDAY [facility] Administration Dextrose 0 ml 08/01/18 17:42 08/04/18 19:00 D50w (25gm) Syringe IV 50 ml PRN PRN Administration Hypoglycemia Famotidine 20 mg 08/02/18 10:00 08/04/18 09:29 Pepcid PO 20 mg DAILY [facility] Administration Hydralazine HCl 10 mg 08/01/18 17:47 Apresoline IV TID PRN Hypertension Pantoprazole Sodium 80 mg/ 100 mls @ 10 mls/hr 08/04/18 14:00 08/05/18 00:21 Sodium Chloride IV 8 mg/hr DIRECT [facility] 10 mls/hr Administration 8 MG/HR Sodium Chloride 1,000 mls @ 75 mls/hr 08/04/18 17:00 08/04/18 23:39 Nacl 0.45% 1000 Ml IV 75 mls/hr DIRECT [facility] Administration Insulin Glargine 20 units 08/04/18 22:00 08/04/18 22:58 Lantus SUB-Q 20 units QHS [facility] Administration Insulin Human Lispro 0 unit 08/03/18 12:00 08/04/18 22:53 Humalog SUB-Q 3 unit ACHS [facility] Administration Protocol Insulin Human Lispro 7 unit 08/04/18 17:28 08/04/18 18:45 Humalog SUB-Q Not Given AC [facility] Potassium Phos/Sodium Phos 1 each 08/04/18 14:00 08/04/18 22:52 Phos-Nak PO Not Given Q8HR [facility] Sodium Bicarbonate 650 mg 08/04/18 10:00 08/04/18 22:50 Sodium Bicarbonate PO 650 mg BID [facility] Administration Sodium Chloride 10 ml 08/01/18 22:00 08/04/18 22:50 Sodium Chloride Flush Syringe 10 Ml IV 10 ml BID [facility] Administration Sodium Chloride 10 ml 08/01/18 17:42 Sodium Chloride Flush Syringe 10 Ml IV PRN PRN LINE FLUSH Sodium Phosphate 250 mg 08/03/18 10:00 08/04/18 23:43 K-Phos Neutral PO 250 mg QID [facility] Administration
[2018-08-05] MEDS: HumaLOG SUB-Q SCH ×7 (07:30→22:11)
[2018-08-05 08:27] LABS: INR 2.48 (0.87-1.13)
--- NOTE | 2018-08-05 08:41 | Event Note ---
Date: 08/04/18 [id number]
--- NOTE | 2018-08-05 09:18 | Consultation ---
REFERRED BY: Roxanne Coffman MD REASON FOR CONSULTATION: Elevated INR. HISTORY OF PRESENT ILLNESS: I saw the patient, a 48-year-old female, in the medical floor. The patient has past history of cardiac arrest, hypertension. The patient underwent mitral valve surgery, the patient states, in 01/2013, was started on Coumadin. She follows at [facility]. As per the patient, few days ago, the dose of Coumadin was changed and she was increased to 1-1/2 tablet 4 times a week and 1 tablet 3 times a week. She came to the hospital because of confusion, lethargy. She was in ICU, stabilized and now she is on the medical floor. INR has been elevated. The patient was also anemic. Yesterday, she had hematemesis. GI evaluation is planned. The patient has had transfusion during this admission. As the INR was not going down, I have been asked to evaluate the patient. The patient says she does not know a lot and she is asking me to look at the charts for most of her information. At this time, no headache, no visual disturbances, no ear discharge, no chest pain, no abdominal pain, no vomiting. PAST MEDICAL HISTORY: As above. PAST SURGICAL HISTORY: Cardiac surgery. SOCIAL HISTORY: Single. No history of smoking. FAMILY HISTORY: Diabetes and hypertension. ALLERGIES: None. During this admission, the patient was treated for DKA, for metabolic acidosis. PRESENT MEDICATIONS: Include inhalers, aspirin, Pepcid, insulin, Protonix. PHYSICAL EXAMINATION: VITAL SIGNS: Temperature 98, pulse 82, respirations 18, BP 147/88. HEENT: Pallor present, no icterus. NECK: No neck lymph nodes. HEART: Metallic heart sounds heard. LUNGS: Clear to auscultation anteriorly. ABDOMEN: Soft. EXTREMITIES: No calf tenderness. LABORATORY DATA: White cell 7, hemoglobin 8, MCV 83, platelet 175. Potassium 4.4, creatinine 2.1, calcium 6.6, bilirubin 0.4, B12 more than 2000, folate 8.7, serum iron 97, ferritin 258. INR 8.67. At admission, the INR was more than 17, it has been slowly trending down. ASSESSMENT AND PLAN: 1. Elevated INR secondary to Coumadin for mechanical mitral valve. The INR was elevated. It is slowly coming down. The patient received blood transfusion. The patient had hematemesis. GI has been consulted. 2. Anemia, transfusion given. 3. Diabetic ketoacidosis. 4. Admitted for confusion. 5. Treated for sepsis. 6. Renal impairment. 7. Pharmacy will dose the Coumadin at this time as INR is coming down. We will observe. 8. I will follow the patient during inpatient stay. JOB# [id number] NM/NTS
[2018-08-05] MEDS ORDERED: NACL 0.9% 1000 ML 1,000 ML IV SCH ×2 (10:00→11:00)
--- NOTE | 2018-08-05 10:10 | Progress Note ---
Assessment and Plan Pt for endoscopy today. Hematology recs noted - coumadin to be continued per pharmacy dosing. Currently stable cardiac status. Resume home lopressor. No ACEI/ARB in setting of renal insufficiency. The patient has been seen in conjunction with Dr. Hong who agrees with the assessment and plan of care. - Patient Problems (1) DKA (diabetic ketoacidoses) Current Visit: Yes Status: Acute Qualifiers: Diabetes mellitus complication detail: with coma (2) Acute on chronic renal failure Current Visit: Yes Status: Acute (3) Acidosis Current Visit: Yes Status: Acute (4) Hyperkalemia Current Visit: Yes Status: Acute (5) Anemia Current Visit: Yes Status: Acute (6) Coagulopathy Current Visit: Yes Status: Acute (7) Elevated troponin Current Visit: Yes Status: Acute (8) Sepsis Current Visit: Yes Status: Acute Qualifiers: Sepsis type: sepsis due to unspecified organism Qualified Code(s): A41.9 - Sepsis, unspecified organism (9) Altered mental status Current Visit: Yes Status: Acute Qualifiers: Altered mental status type: unspecified Qualified Code(s): R41.82 - Altered mental status, unspecified (10) History of cardiac arrest Current Visit: Yes Status: Chronic (11) Diabetes Current Visit: Yes Status: Chronic (12) Cardiomyopathy Current Visit: Yes Status: Chronic Qualifiers: Cardiomyopathy type: unspecified Qualified Code(s): I42.9 - Cardiomyopathy, unspecified (13) Hypertension Current Visit: Yes Status: Chronic (14) H/O mitral valve replacement with mechanical valve Current Visit: Yes Status: Chronic (15) Medical non-compliance Current Visit: Yes Status: Chronic Subjective Date of service: 08/05/18 Principal diagnosis: DKA Interval history: pt resting in bed, no current cardiac complaints. Objective Last Vital Signs Temp 97.9 F 08/05/18 08:48 Pulse 86 08/05/18 08:48 Resp 18 08/05/18 08:48 BP 124/66 08/05/18 08:48 Pulse Ox 100 08/05/18 08:48 - Physical Examination General: No Apparent Distress HEENT: Positive: PERRL, Normocephaly, Mucus Membranes Moist Neck: Positive: neck supple, trachea midline Cardiac: Positive: Reg Rate and Rhythm, S1/S2 Lungs: Positive: Decreased Breath Sounds Neuro: Positive: Grossly Intact Abdomen: Negative: Tender Skin: Negative: Rash Musculoskeletal: No Pain Extremities: Absent: edema - Labs and Meds Cardiac Enzymes 08/04/18 Range/Units 09:38 AST 127 H (5-40) units/L Coagulation 08/05/18 Range/Units 07:36 PT 28.5 H (12.2-14.9) Sec. INR 2.48 H (0.87-1.13) CBC 08/04/18 08/04/18 08/05/18 Range/Units 13:50 19:22 06:16 WBC 5.5 (4.5-11.0) K/mm3 RBC 2.63 L (3.65-5.03) M/mm3 Hgb 7.8 L 9.4 L 7.1 L (10.1-14.3) gm/dl Hct 24.4 L 28.9 L 21.8 L D (30.3-42.9) % Plt Count 154 (140-440) K/mm3 Lymph # 1.5 (1.2-5.4) K/mm3 Scott # 0.3 (0.0-0.8) K/mm3 Eos # 0.1 (0.0-0.4) K/mm3 Baso # 0.0 (0.0-0.1) K/mm3 Comprehensive Metabolic Panel 08/04/18 08/04/18 08/05/18 Range/Units 09:38 19:22 06:16 Sodium 136 L (137-145) mmol/L Potassium 4.6 (3.6-5.0) mmol/L Chloride 105.3 (98-107) mmol/L Carbon Dioxide 19 L (22-30) mmol/L BUN 32 H (7-17) mg/dL Creatinine 2.0 H (0.7-1.2) mg/dL Glucose 251 H 140 H (65-100) mg/dL Calcium 6.4 L (8.4-10.2) mg/dL Direct Bilirubin < 0.2 (0-0.2) mg/dL Indirect Bilirubin 0.2 mg/dL AST 127 H (5-40) units/L ALT 40 (7-56) units/L Alkaline Phosphatase 262 H (35-129) units/L Total Protein 4.8 L (6.3-8.2) g/dL Albumin 2.7 L (3.9-5) g/dL - Imaging and Cardiology EKG: report reviewed, image reviewed Echo: report reviewed (07/2018: EF 40%, mild to mod LVH, LA and RA dilated, mod TR and NC, mechanical valve in mitral position that appears to be functioning properly. 11/2016 showed EF 40-45%, abnormal diastolic function, trace MR, mild TR, RVSP 36mmHg. ) - EKG Sinus rhythms and dysrhythmias: sinus rhythm
[2018-08-05] MEDS ORDERED: WATER FOR IRRIG STERILE IR ONE (10:45)
[2018-08-05] MEDS ORDERED: DIPRIVAN 10 MG/ML IV ONE ×2 (10:53)
--- NOTE | 2018-08-05 11:38 | Operative Report ---
Operative Report Operative Report: Esophagogastroduodenoscopy Procedure Note Date of procedure: 08/05/2018 Endoscopist: Juliano Abdul Pre-op diagnosis: Upper GI bleed Post-op diagnosis: Gastritis Anesthesia: MAC Complications: No immediate complications Estimated blood loss: None Procedure: After consent was obtained, the patient was placed in the left lateral decubitus position. The fujinon endoscope was inserted into the patient's mouth under direct vision, and advanced into the 2nd portion of the duodenum without difficulty. The patient tolerated the procedure well. The views of the mucosa were good. Patient's vital signs were monitored continuously throughout the procedure. Findings: The esophagus appeared normal. There was erythematous mucosa in the proximal body of the stomach with mild oozing of blood. This was irrigated with water and no active bleeding was seen. Otherwise, the stomach appeared normal without high risk bleeding lesions. The duodenum appeared normal. Impression: 1. Gastritis with mild self-limited oozing of blood. No active bleeding following irrigation, and no high risk bleeding lesions were seen during the procedure. Recommendations: -anti-acid medication daily -avoid nsaid's -anticoagulation management per primary/cardiology will sign off, please call as needed or with questions.
--- NOTE | 2018-08-05 13:23 | Progress Note ---
Assessment and Plan 48 y/o female with severe metabolic acidosis secondary to DKA 1. Pulm status stable, will sign off. Call if questions. Subjective Date of service: 08/05/18 Principal diagnosis: DKA Interval history: Successful transfer out of ICU with no issues. Scoped by GI this am with no active bleeding seen. Pulm status has been stable. Objective - Constitutional Vitals: Vital Signs - 12hr 08/05/18 08/05/18 08/05/18 03:40 08:48 11:06 Temperature 98.1 F 97.9 F 98.4 F Pulse Rate 89 86 82 Respiratory 18 18 10 L Rate Blood Pressure 115/76 124/66 126/89 O2 Sat by Pulse 99 100 98 Oximetry 08/05/18 08/05/18 08/05/18 11:11 11:36 11:51 Temperature 98.4 F 97.5 F L Pulse Rate 82 78 81 Respiratory 10 L 22 24 Rate Blood Pressure 126/89 98/63 109/70 O2 Sat by Pulse 98 100 100 Oximetry 08/05/18 12:06 Temperature Pulse Rate 82 Respiratory 20 Rate Blood Pressure 120/80 O2 Sat by Pulse 98 Oximetry - Labs CBC & Chem 7: 08/05/18 06:16 08/05/18 06:16 Labs: Abnormal lab results 08/04/18 08/04/18 08/04/18 Range/Units 13:50 18:42 19:22 RBC (3.65-5.03) M/mm3 Hgb 7.8 L 9.4 L (10.1-14.3) gm/dl Hct 24.4 L 28.9 L (30.3-42.9) % MCH (28-32) pg RDW (13.2-15.2) % PT (12.2-14.9) Sec. INR (0.87-1.13) Sodium (137-145) mmol/L Carbon Dioxide (22-30) mmol/L BUN (7-17) mg/dL Creatinine (0.7-1.2) mg/dL Glucose (65-100) mg/dL POC Glucose < 40 L (70-105) Calcium (8.4-10.2) mg/dL Vitamin B12 (211-911) pg/mL 08/04/18 08/04/18 08/04/18 Range/Units 19:22 19:36 21:44 RBC (3.65-5.03) M/mm3 Hgb (10.1-14.3) gm/dl Hct (30.3-42.9) % MCH (28-32) pg RDW (13.2-15.2) % PT (12.2-14.9) Sec. INR (0.87-1.13) Sodium (137-145) mmol/L Carbon Dioxide (22-30) mmol/L BUN (7-17) mg/dL Creatinine (0.7-1.2) mg/dL Glucose 251 H (65-100) mg/dL POC Glucose 228 H (70-105) Calcium (8.4-10.2) mg/dL Vitamin B12 > 2000 H (211-911) pg/mL 08/05/18 08/05/18 08/05/18 Range/Units 06:16 06:16 07:36 RBC 2.63 L (3.65-5.03) M/mm3 Hgb 7.1 L (10.1-14.3) gm/dl Hct 21.8 L D (30.3-42.9) % MCH 27 L (28-32) pg RDW 20.5 H (13.2-15.2) % PT 28.5 H (12.2-14.9) Sec. INR 2.48 H (0.87-1.13) Sodium 136 L (137-145) mmol/L Carbon Dioxide 19 L (22-30) mmol/L BUN 32 H (7-17) mg/dL Creatinine 2.0 H (0.7-1.2) mg/dL Glucose 140 H (65-100) mg/dL POC Glucose (70-105) Calcium 6.4 L (8.4-10.2) mg/dL Vitamin B12 (211-911) pg/mL 08/05/18 08/05/18 Range/Units 07:56 12:40 RBC (3.65-5.03) M/mm3 Hgb (10.1-14.3) gm/dl Hct (30.3-42.9) % MCH (28-32) pg RDW (13.2-15.2) % PT (12.2-14.9) Sec. INR (0.87-1.13) Sodium (137-145) mmol/L Carbon Dioxide (22-30) mmol/L BUN (7-17) mg/dL Creatinine (0.7-1.2) mg/dL Glucose (65-100) mg/dL POC Glucose 158 H 147 H (70-105) Calcium (8.4-10.2) mg/dL Vitamin B12 (211-911) pg/mL Medications & Allergies - Medications Allergies/Adverse Reactions: Allergies No Known Allergies Allergy (Verified 12/03/16 23:01) Home Medications: Home Medications Medication Instructions Recorded Confirmed Last Taken Type Metoprolol [Lopressor TAB] 25 mg PO BID #60 tablet 12/29/16 01/29/17 Unknown Rx Famotidine [Pepcid] 20 mg PO DAILY #30 tablet 02/04/17 Unknown Rx Furosemide [Lasix TAB] 40 mg PO 0600,1800 #60 tablet 02/04/17 Unknown Rx Insulin NPH/Regular [NovoLIN 70/30] 18 unit SQ BIDDIAB #1 vial 02/04/17 Unknown Rx Metoprolol [Lopressor TAB] 50 mg PO TID #90 tablet 02/04/17 Unknown Rx Coumadin 08/02/18 Unknown History Active Medications: Generic Name Dose Route Start Last Admin Trade Name Freq PRN Reason Stop Dose Admin Albuterol 2.5 mg 08/01/18 17:42 Proventil IH Q3HRT PRN Shortness Of Breath Aspirin 325 mg 08/02/18 10:00 08/04/18 09:28 Ecotrin PO 325 mg QDAY ULI Administration Dextrose 0 ml 08/01/18 17:42 08/04/18 19:00 D50w (25gm) Syringe IV 50 ml PRN PRN Administration Hypoglycemia Famotidine 20 mg 08/02/18 10:00 08/04/18 09:29 Pepcid PO 20 mg DAILY ULI Administration Hydralazine HCl 10 mg 08/01/18 17:47 Apresoline IV TID PRN Hypertension Pantoprazole Sodium 80 mg/ 100 mls @ 10 mls/hr 08/04/18 14:00 08/05/18 00:21 Sodium Chloride IV 8 mg/hr DIRECT ULI 10 mls/hr Administration 8 MG/HR Sodium Chloride 1,000 mls @ 75 mls/hr 08/04/18 17:00 08/04/18 23:39 Nacl 0.45% 1000 Ml IV 75 mls/hr DIRECT ULI Administration Sodium Chloride 1,000 mls @ 50 mls/hr 08/05/18 10:00 Nacl 0.9% 1000 Ml IV 08/05/18 18:00 DIRECT ULI Sodium Chloride 1,000 mls @ 50 mls/hr 08/05/18 11:00 08/05/18 11:19 Nacl 0.9% 1000 Ml IV 50 mls/hr DIRECT ULI Administration Insulin Glargine 20 units 08/04/18 22:00 08/04/18 22:58 Lantus SUB-Q 20 units QHS ULI Administration Insulin Human Lispro 0 unit 08/03/18 12:00 08/04/18 22:53 Humalog SUB-Q 3 unit ACHS ULI Administration Protocol Insulin Human Lispro 7 unit 08/04/18 17:28 08/04/18 18:45 Humalog SUB-Q Not Given AC ULI Metoprolol Tartrate 25 mg 08/05/18 22:00 Lopressor PO BID ULI Potassium Phos/Sodium Phos 1 each 08/04/18 14:00 08/04/18 22:52 Phos-Nak PO Not Given Q8HR ULI Sodium Bicarbonate 650 mg 08/04/18 10:00 08/04/18 22:50 Sodium Bicarbonate PO 650 mg BID ULI Administration Sodium Chloride 10 ml 08/01/18 22:00 08/04/18 22:50 Sodium Chloride Flush Syringe 10 Ml IV 10 ml BID ULI Administration Sodium Chloride 10 ml 08/01/18 17:42 Sodium Chloride Flush Syringe 10 Ml IV PRN PRN LINE FLUSH Sodium Phosphate 250 mg 08/03/18 10:00 08/04/18 23:43 K-Phos Neutral PO 250 mg QID ULI Administration
[2018-08-05] MEDS: PEPCID PO SCH (13:31)
[2018-08-05] MEDS: ECOTRIN PO SCH (13:31)
[2018-08-05] MEDS ORDERED: NACL 0.9% 500 ML 500 ML IV NR (13:40)
--- NOTE | 2018-08-05 13:44 | Progress Note ---
Assessment and Plan Assessment and plan: Assessment and plan Acute on chronic Blood loss Anemia transfuse I unit of prbc Monitor for abnormal bleeding. Suspected Mild Upper GI bleeding post EGD today continue PPI s/p Severe Coumadin toxicity Heme on board start Coumadin at 5mg with goal INR of 2.5-3.5 DM Insulin dependent s/p DKA continue SC insulin therapy h/o Mechanical Heart Valve INR goal of 2.5-3.5 Acute Delirium resolved monitor . Acute on chronic kidney disease renal on board Elevated troponin, multifactorial susepct 2/2 demand cardio on board Full code status Further pt mgt per hospital course Dispo: Restart Coumadin at 5 mg today daily PT/INR Bleeding precautions at all times. Pharmacy to obtain home Coumadin doses from [place]. INR 2.5-3.5 prior to d/c home with close outpt INR monitoring. Disposition Plan: Restart Coumadin at 5 mg today Total Time Spent with Patient (Minutes): More than 35 mins spent History Interval history: HPI: 48 YO Female with HTN, [place], Cardiac Arrest, CAD,Malnutrition, DM, GERD, Medication Noncompliance presents to ED for evaluation. Pt is confused and lethargic at time of exam and the patient is unable to provide history. History taken from family as ED staff and EMS. As per report, EMS was notified and upon arrival to the patients motel room- the patient was found to be lethargic with decreased responsiveness. Pt transported to [facility] for further care and evaluation. Upon arrival the patient was found to have DKA, Sepsis, Acidosis, ARF, as well as elevated cardiac enzymes. No reports of fever, chills, CP, Palpitations, Syncope, trauma, falls, or loss of consciousness. Pt admitted to ICU and initiated on DKA and Sepsis Protocols respectively. Pulmonary team consulted, as well as Nephrology team for renal failure, and Cardiology team for elevated troponin. Brief Hospital course: Pt was admitted with severe coumadin toxicity, associated with acute blood loss Anemia. Received FFP and Vitamin K therapies. Admitted to ICU for very close monitoring. AMS has since resolved. Pt was transfused units of PRBC and FFP. Has EGD today: EGD: Gastritis with mild self-limited oozing of blood. INR is 2.48 today and Hemoglobin of 7.1, down from 9.4. . Case was d.w the [employer] Le[employer] Operator, who reccs to start Coumadin at 5 mg and pharm to contact [place] pharmacy to obtain pt's home Coumadin dose. Subjective: Pt seen this afternoon after her EGD. No new complaints. "Getting ready to go home per pt". Denies any form of pain, no bleeding problem. Hospitalist Physical - Constitutional Vitals: Temp Pulse Resp BP Pulse Ox 97.5 F L 82 20 120/80 98 08/05/18 11:36 08/05/18 12:06 08/05/18 12:06 08/05/18 12:06 08/05/18 12:06 General appearance: Present: no acute distress, other (chronically ill appearing, slim stature. ) - EENT Eyes: Present: PERRL, EOM intact ENT: hearing intact, clear oral mucosa, edentulous - Neck Neck: Present: supple, normal ROM - Respiratory Respiratory: bilateral: CTA, negative: diminished, rales, rhonchi, wheezing - Cardiovascular Rhythm: regular Heart Sounds: Present: S1 & S2, systolic murmur - Extremities Extremities: pulses intact, pulses symmetrical, normal temperature, normal color, Full ROM - Abdominal General gastrointestinal: soft, non-tender, tender, normal bowel sounds - Integumentary Integumentary: Present: clear, warm, dry - Psychiatric Psychiatric: appropriate mood/affect, intact judgment & insight, cooperative - Neurologic Neurologic: CNII-XII intact, moves all extremities - Allied Health Allied health notes reviewed: nursing, social work, case management Results - Labs CBC & Chem 7: 08/05/18 06:16 08/05/18 06:16 Labs: Laboratory Last Values WBC 5.5 K/mm3 (4.5-11.0) 08/05/18 06:16 RBC 2.63 M/mm3 (3.65-5.03) L 08/05/18 06:16 Hgb 7.1 gm/dl (10.1-14.3) L 08/05/18 06:16 Hct 21.8 % (30.3-42.9) L D 08/05/18 06:16 MCV 83 fl (79-97) 08/05/18 06:16 MCH 27 pg (28-32) L 08/05/18 06:16 MCHC 33 % (30-34) 08/05/18 06:16 RDW 20.5 % (13.2-15.2) H 08/05/18 06:16 Plt Count 154 K/mm3 (140-440) 08/05/18 06:16 Lymph % (Auto) 26.3 % (13.4-35.0) 08/05/18 06:16 Rooks % (Auto) 5.7 % (0.0-7.3) 08/05/18 06:16 Eos % (Auto) 2.6 % (0.0-4.3) 08/05/18 06:16 Baso % (Auto) 0.8 % (0.0-1.8) 08/05/18 06:16 Lymph # 1.5 K/mm3 (1.2-5.4) 08/05/18 06:16 Rooks # 0.3 K/mm3 (0.0-0.8) 08/05/18 06:16 Eos # 0.1 K/mm3 (0.0-0.4) 08/05/18 06:16 Baso # 0.0 K/mm3 (0.0-0.1) 08/05/18 06:16 Add Manual Diff Complete 08/02/18 03:46 Total Counted 100 08/02/18 03:46 Seg Neutrophils % 64.6 % (40.0-70.0) 08/05/18 06:16 Seg Neuts % (Manual) 86.0 % (40.0-70.0) H 08/02/18 03:46 Band Neutrophils % 4.0 % 08/02/18 03:46 Lymphocytes % (Manual) 5.0 % (13.4-35.0) L 08/02/18 03:46 Reactive Lymphs % (Man) 0 % 08/02/18 03:46 Monocytes % (Manual) 5.0 % (0.0-7.3) 08/02/18 03:46 Eosinophils % (Manual) 0 % (0.0-4.3) 08/02/18 03:46 Basophils % (Manual) 0 % (0.0-1.8) 08/02/18 03:46 Metamyelocytes % 0 % 08/02/18 03:46 Myelocytes % 0 % 08/02/18 03:46 Promyelocytes % 0 % 08/02/18 03:46 Blast Cells % 0 % 08/02/18 03:46 Nucleated RBC % Not Reportable 08/02/18 03:46 Seg Neutrophils # 3.6 K/mm3 (1.8-7.7) 08/05/18 06:16 Seg Neutrophils # Man 14.4 K/mm3 (1.8-7.7) H 08/02/18 03:46 Band Neutrophils # 0.7 K/mm3 08/02/18 03:46 Lymphocytes # (Manual) 0.8 K/mm3 (1.2-5.4) L 08/02/18 03:46 Abs React Lymphs (Man) 0.0 K/mm3 08/02/18 03:46 Monocytes # (Manual) 0.8 K/mm3 (0.0-0.8) 08/02/18 03:46 Eosinophils # (Manual) 0.0 K/mm3 (0.0-0.4) 08/02/18 03:46 Basophils # (Manual) 0.0 K/mm3 (0.0-0.1) 08/02/18 03:46 Metamyelocytes # 0.0 K/mm3 08/02/18 03:46 Myelocytes # 0.0 K/mm3 08/02/18 03:46 Promyelocytes # 0.0 K/mm3 08/02/18 03:46 Blast Cells # 0.0 K/mm3 08/02/18 03:46 WBC Morphology Not Reportable 08/02/18 03:46 Hypersegmented Neuts Not Reportable 08/02/18 03:46 Hyposegmented Neuts Not Reportable 08/02/18 03:46 Hypogranular Neuts Not Reportable 08/02/18 03:46 Smudge Cells Not Reportable 08/02/18 03:46 Toxic Granulation Not Reportable 08/02/18 03:46 Toxic Vacuolation Not Reportable 08/02/18 03:46 Dohle Bodies Not Reportable 08/02/18 03:46 Pelger-Huet Anomaly Not Reportable 08/02/18 03:46 Mary Rods Not Reportable 08/02/18 03:46 Platelet Estimate Consistent w auto 08/02/18 03:46 Clumped Platelets Not Reportable 08/02/18 03:46 Plt Clumps, EDTA Not Reportable 08/02/18 03:46 Large Platelets Not Reportable 08/02/18 03:46 Giant Platelets Not Reportable 08/02/18 03:46 Platelet Satelliting Not Reportable 08/02/18 03:46 Plt Morphology Comment Not Reportable 08/02/18 03:46 RBC Morphology Not Reportable 08/02/18 03:46 Dimorphic RBCs Not Reportable 08/02/18 03:46 Polychromasia Not Reportable 08/02/18 03:46 Hypochromasia 1+ 08/02/18 03:46 Poikilocytosis Not Reportable 08/02/18 03:46 Anisocytosis 1+ 08/02/18 03:46 Microcytosis Not Reportable 08/02/18 03:46 Macrocytosis Not Reportable 08/02/18 03:46 Spherocytes Not Reportable 08/02/18 03:46 Pappenheimer Bodies Not Reportable 08/02/18 03:46 Sickle Cells Not Reportable 08/02/18 03:46 Target Cells Not Reportable 08/02/18 03:46 Tear Drop Cells Not Reportable 08/02/18 03:46 Ovalocytes Not Reportable 08/02/18 03:46 Helmet Cells Not Reportable 08/02/18 03:46 [place] Bodies Not Reportable 08/02/18 03:46 [place] Rings Not Reportable 08/02/18 03:46 Jerri Cells Not Reportable 08/02/18 03:46 Bite Cells Not Reportable 08/02/18 03:46 Crenated Cell Few 08/02/18 03:46 Elliptocytes Not Reportable 08/02/18 03:46 Acanthocytes (Spur) Not Reportable 08/02/18 03:46 Rouleaux Not Reportable 08/02/18 03:46 Hemoglobin C Crystals Not Reportable 08/02/18 03:46 Schistocytes Not Reportable 08/02/18 03:46 Malaria parasites Not Reportable 08/02/18 03:46 Michael Bodies Not Reportable 08/02/18 03:46 Hem Pathologist Commnt No 08/02/18 03:46 PT 28.5 Sec. (12.2-14.9) H 08/05/18 07:36 INR 2.48 (0.87-1.13) H 08/05/18 07:36 APTT 62.2 Sec. (24.2-36.6) H* 08/02/18 20:52 VBG pH 6.903 (7.320-7.420) L* 08/01/18 16:17 Sodium 136 mmol/L (137-145) L 08/05/18 06:16 Potassium 4.6 mmol/L (3.6-5.0) 08/05/18 06:16 Chloride 105.3 mmol/L (98-107) 08/05/18 06:16 Carbon Dioxide 19 mmol/L (22-30) L 08/05/18 06:16 Anion Gap 16 mmol/L 08/05/18 06:16 BUN 32 mg/dL (7-17) H 08/05/18 06:16 Creatinine 2.0 mg/dL (0.7-1.2) H 08/05/18 06:16 Estimated GFR 32 ml/min 08/05/18 06:16 BUN/Creatinine Ratio 16 % 08/05/18 06:16 Glucose 140 mg/dL (65-100) H 08/05/18 06:16 POC Glucose 147 (70-105) H 08/05/18 12:40 Lactic Acid 1.90 mmol/L (0.7-2.0) 08/03/18 09:41 Calcium 6.4 mg/dL (8.4-10.2) L 08/05/18 06:16 Phosphorus 3.30 mg/dL (2.5-4.5) D 08/04/18 05:31 Magnesium 2.10 mg/dL (1.7-2.3) 08/04/18 05:31 Iron 97 ug/dL (37-170) 08/04/18 19:22 TIBC 258 mcg/dL (250-450) 08/04/18 19:22 Ferritin 258.8 ng/mL (13.0-400.0) 08/04/18 19:22 Total Bilirubin 0.40 mg/dL (0.1-1.2) 08/04/18 09:38 Direct Bilirubin < 0.2 mg/dL (0-0.2) 08/04/18 09:38 Indirect Bilirubin 0.2 mg/dL 08/04/18 09:38 AST 127 units/L (5-40) H 08/04/18 09:38 ALT 40 units/L (7-56) 08/04/18 09:38 Alkaline Phosphatase 262 units/L (35-129) H 08/04/18 09:38 Troponin T 0.079 ng/mL (0.00-0.029) H D 08/03/18 08:20 Total Protein 4.8 g/dL (6.3-8.2) L 08/04/18 09:38 Albumin 2.7 g/dL (3.9-5) L 08/04/18 09:38 Albumin/Globulin Ratio 1.3 % 08/04/18 09:38 Triglycerides 279 mg/dL (2-149) H 08/01/18 16:17 Cholesterol 229 mg/dL (50-199) H 08/01/18 16:17 LDL Cholesterol Direct 154 mg/dL (50-130) H 08/01/18 16:17 HDL Cholesterol 47 mg/dL (40-59) 08/01/18 16:17 Cholesterol/HDL Ratio 4.87 % 08/01/18 16:17 Lipase 43 units/L (13-60) 08/01/18 16:17 Vitamin B12 > 2000 pg/mL (211-911) H 08/04/18 19:36 Folate 8.75 ng/mL (7.3-26.0) 08/04/18 19:36 Urine Color Yellow (Yellow) 08/01/18 17:15 Urine Turbidity Cloudy (Clear) 08/01/18 17:15 Urine pH 5.0 (5.0-7.0) 08/01/18 17:15 Ur Specific [place] 1.021 (1.003-1.030) 08/01/18 17:15 Urine Protein 100 mg/dl mg/dL (Negative) 08/01/18 17:15 Urine Glucose (UA) >=500 mg/dL (Negative) 08/01/18 17:15 Urine Ketones 20 mg/dL (Negative) 08/01/18 17:15 Urine Blood Mod (Negative) 08/01/18 17:15 Urine Nitrite Neg (Negative) 08/01/18 17:15 Urine Bilirubin Neg (Negative) 08/01/18 17:15 Urine Urobilinogen < 2.0 mg/dL (<2.0) 08/01/18 17:15 Ur Leukocyte Esterase Neg (Negative) 08/01/18 17:15 Urine WBC (Auto) 17.0 /HPF (0.0-6.0) H 08/01/18 17:15 Urine RBC (Auto) 4.0 /HPF (0.0-6.0) 08/01/18 17:15 U Epithel Cells (Auto) 23.0 /HPF (0-13.0) H 08/01/18 17:15 Urine Bacteria (Auto) 1+ /HPF (Negative) 08/01/18 17:15 Urine Mucus Few /HPF 08/01/18 17:15 Urine Yeast (Budding) 2+ /HPF 08/01/18 17:15 Urine Creatinine 45.9 mg/dL (0.1-20.0) H 08/01/18 Unknown Urine Sodium 23 mmol/L 08/01/18 Unknown Influenza A (Rapid) Negative (Negative) 08/04/18 05:30 Influenza B (Rapid) Negative (Negative) 08/04/18 05:30 Blood Type O POSITIVE 08/03/18 09:38 Antibody Screen Negative 08/03/18 09:38 Crossmatch See Detail 08/03/18 09:38 - Imaging and Cardiology EKG: report reviewed Chest x-ray: report reviewed Nutrition/Malnutrition Assess - Dietary Evaluation Nutrition/Malnutrition Findings: Nutrition Notes Start: 08/02/18 10:23 Freq: Status: Active Protocol: Document 08/04/18 12:09 CP (Rec: 08/04/18 12:17 CP [id number]) Co-Sign 08/04/18 12:09 LP Nutrition Notes Initial or Follow up Reassessment Current Diagnosis Coronary Artery Disease Diabetes Hypertension Stroke Other Pertinent Diagnosis DKA, GERD Current Diet Consistent CHO, Glucerna TID Labs/Tests Na 135 BUN 34 Cr 2.1 BG 296 Pertinent Medications Reviewed Height 5 ft 4 in Weight 45.359 kg [place] Body Weight (kg) 54.54 BMI 17.2 Intake Prior to Admission Poor Weight Status Underweight Subjective/Other Information Pt reports having a "good" appetite and has been consuming 90% of her meals since her diet has been advanced. Pt consuming her glucerna. Percent of energy/protein needs met: 100%/100% Burn Absent Trauma Absent #1 Nutrition Diagnosis Inadequate oral intake Etiology DKA As Evidenced by Signs and Symptoms Pt meeting 100% of her energy and pro needs Diagnosis Progress(for reassessment Improved documentation) Is patient on ventilator? No Is Patient Ambulatory and/or Out of Bed No REE-([facility]-confined to bed) 1280.472 Kcal/Kg value to use for calculation 35 Approximate Energy Requirements Using 1588 kcal/Kg Calculation Used for Recommendations Kcal/kg Additional Notes PRO: 54-91g (1.2-2 g/kg) Fluid: 1mL/hr Nutrition Intervention Change Diet Order: Continue current Add Supplement/Snack (indicate name/kcal Glucerna TID /protein ) Provides kCal: 660 Provides Protein (gm) 30 Goal #1 PO and ONS intake to continue to meet at least 80% of pro and energy needs Anticipated Discharge Needs: Consistent CHO Follow-Up By: 08/08/18 Additional Comments F/U: Stable PO and ONS intakes - Attestation Statement I have reviewed and agreed w/ Malnutrition eval & tx plan: Yes
--- NOTE | 2018-08-05 13:44 | Progress Note ---
Subjective Principal diagnosis: DKA Interval history: Patient was seen today for follow-up of multiple renal related issues doing better Events of 24 hours vitals labs intake output medications were reviewed Past medical history: Reviewed Family history: Reviewed Social history: Reviewed Allergies: Reviewed Physical examination: Vitals: Reviewed HEENT: No pallor or icterus oral mucosa moist Neck: Supple no JVD no thyromegaly Chest: Bilateral clear to auscultation anteriorly Heart: Regular rate and rhythm S1-S2 heard no S3-S4 Abdomen: Soft nontender no voluntary guarding rigidity rebound Extremity: Dry skin less than 1+ peripheral edema Psychiatric: No evidence of agitation and aggression noted Dermatology: No petechial rashes Labs and x-rays: Reviewed from today Assessment and plan Acute on chronic renal failure: Renal function stable Admitted with DKA, severe metabolic acidosis and hyperkalemia, doing much better Renal function has stabilized Hypophosphatemia, on replacement. To follow Patient does follow up with [facility] and will need to follow up with them upon discharge small renal cyst otherwise unremarkable renal ultrasound, made aware to follow- up wi Hypophosphatemia patient was encouraged to increase her dietary intake of phosphorus, we'll start her on Neutra-Phos for now, she will also need to take some vitamin D she likely may be vitamin D deficient Monitor phosphorus levels and monitor electrolytes Patient does follow up with [facility] and she will need to make an appointment upon discharge We'll continue to follow and make recommendation for renal standpoint Objective - Vital Signs Vital signs: Vital Signs - 12hr 08/05/18 08/05/18 08/05/18 03:40 08:48 11:06 Temperature 98.1 F 97.9 F 98.4 F Pulse Rate 89 86 82 Respiratory 18 18 10 L Rate Blood Pressure 115/76 124/66 126/89 O2 Sat by Pulse 99 100 98 Oximetry 08/05/18 08/05/18 08/05/18 11:11 11:36 11:51 Temperature 98.4 F 97.5 F L Pulse Rate 82 78 81 Respiratory 10 L 22 24 Rate Blood Pressure 126/89 98/63 109/70 O2 Sat by Pulse 98 100 100 Oximetry 08/05/18 12:06 Temperature Pulse Rate 82 Respiratory 20 Rate Blood Pressure 120/80 O2 Sat by Pulse 98 Oximetry - Lab 08/05/18 06:16 08/05/18 06:16 Most recent lab results Calcium 6.4 mg/dL (8.4-10.2) L 08/05/18 06:16 Phosphorus 3.30 mg/dL (2.5-4.5) D 08/04/18 05:31 Magnesium 2.10 mg/dL (1.7-2.3) 08/04/18 05:31 Urine Creatinine 45.9 mg/dL (0.1-20.0) H 08/01/18 Unknown Urine Sodium 23 mmol/L 08/01/18 Unknown Medications & Allergies - Medications Allergies/Adverse Reactions: Allergies No Known Allergies Allergy (Verified 12/03/16 23:01) Home Medications: Home Medications Medication Instructions Recorded Confirmed Last Taken Type Metoprolol [Lopressor TAB] 25 mg PO BID #60 tablet 12/29/16 01/29/17 Unknown Rx Famotidine [Pepcid] 20 mg PO DAILY #30 tablet 02/04/17 Unknown Rx Furosemide [Lasix TAB] 40 mg PO 0600,1800 #60 tablet 02/04/17 Unknown Rx Insulin NPH/Regular [NovoLIN 70/30] 18 unit SQ BIDDIAB #1 vial 02/04/17 Unknown Rx Metoprolol [Lopressor TAB] 50 mg PO TID #90 tablet 02/04/17 Unknown Rx Coumadin 08/02/18 Unknown History Active Medications: Generic Name Dose Route Start Last Admin Trade Name Freq PRN Reason Stop Dose Admin Albuterol 2.5 mg 08/01/18 17:42 Proventil IH Q3HRT PRN Shortness Of Breath Aspirin 325 mg 08/02/18 10:00 08/04/18 09:28 Ecotrin PO 325 mg QDAY ULI Administration Dextrose 0 ml 08/01/18 17:42 08/04/18 19:00 D50w (25gm) Syringe IV 50 ml PRN PRN Administration Hypoglycemia Famotidine 20 mg 08/02/18 10:00 08/04/18 09:29 Pepcid PO 20 mg DAILY ULI Administration Hydralazine HCl 10 mg 08/01/18 17:47 Apresoline IV TID PRN Hypertension Pantoprazole Sodium 80 mg/ 100 mls @ 10 mls/hr 08/04/18 14:00 08/05/18 00:21 Sodium Chloride IV 8 mg/hr DIRECT ULI 10 mls/hr Administration 8 MG/HR Sodium Chloride 1,000 mls @ 75 mls/hr 08/04/18 17:00 08/04/18 23:39 Nacl 0.45% 1000 Ml IV 75 mls/hr DIRECT ULI Administration Sodium Chloride 1,000 mls @ 50 mls/hr 08/05/18 10:00 Nacl 0.9% 1000 Ml IV 08/05/18 18:00 DIRECT ULI Sodium Chloride 1,000 mls @ 50 mls/hr 08/05/18 11:00 08/05/18 11:19 Nacl 0.9% 1000 Ml IV 50 mls/hr DIRECT ULI Administration Insulin Glargine 20 units 08/04/18 22:00 08/04/18 22:58 Lantus SUB-Q 20 units QHS ULI Administration Insulin Human Lispro 0 unit 08/03/18 12:00 08/04/18 22:53 Humalog SUB-Q 3 unit ACHS ULI Administration Protocol Insulin Human Lispro 7 unit 08/04/18 17:28 08/04/18 18:45 Humalog SUB-Q Not Given AC ULI Metoprolol Tartrate 25 mg 08/05/18 22:00 Lopressor PO BID ULI Potassium Phos/Sodium Phos 1 each 08/04/18 14:00 08/04/18 22:52 Phos-Nak PO Not Given Q8HR ULI Sodium Bicarbonate 650 mg 08/04/18 10:00 08/04/18 22:50 Sodium Bicarbonate PO 650 mg BID ULI Administration Sodium Chloride 10 ml 08/01/18 22:00 08/04/18 22:50 Sodium Chloride Flush Syringe 10 Ml IV 10 ml BID ULI Administration Sodium Chloride 10 ml 08/01/18 17:42 Sodium Chloride Flush Syringe 10 Ml IV PRN PRN LINE FLUSH Sodium Phosphate 250 mg 08/03/18 10:00 08/04/18 23:43 K-Phos Neutral PO 250 mg QID ULI Administration
[2018-08-05] MEDS: PHOS-NAK PO SCH ×2 (13:56→22:11)
[2018-08-05] MEDS: SODIUM BICARBONATE PO SCH ×2 (13:57→22:17)
[2018-08-05] MEDS ORDERED: COUMADIN PO SCH ×4 (17:00→21:00)
[2018-08-05] MEDS: SODIUM CHLORIDE FLUSH SYRINGE 10 ML IV SCH ×2 (18:21→22:15)
[2018-08-05 19:27] LABS: INR 1.41 (0.87-1.13)
[2018-08-05] MEDS: K-PHOS NEUTRAL PO SCH (22:10)
[2018-08-05] MEDS: LOPRESSOR PO SCH (22:14)
[2018-08-05] MEDS: LANTUS SUB-Q SCH (22:17)
[2018-08-06] MEDS ORDERED: HEPARIN 10,000 UNITS/10 ML IV ONE (06:02)
[2018-08-06] MEDS: PHOS-NAK PO SCH ×3 (07:05→22:22)
[2018-08-06] MEDS: HEPARIN/ 0.45% NACL-25,000 UNIT/500 ML 25,000 UNIT/500 ML BAG IV SCH ×2 (07:18→12:39)
--- NOTE | 2018-08-06 07:20 | Event Note ---
Date: 08/06/18 INR low - heparin drip ordered d/w pharmacy
[2018-08-06] MEDS: LOPRESSOR PO SCH ×2 (09:28→22:12)
[2018-08-06] MEDS: ECOTRIN PO SCH (09:28)
[2018-08-06] MEDS: SODIUM BICARBONATE PO SCH ×2 (09:28→22:12)
[2018-08-06] MEDS: PROTONIX PO SCH (09:28)
[2018-08-06] MEDS: SODIUM CHLORIDE FLUSH SYRINGE 10 ML IV SCH (09:29)
[2018-08-06] MEDS: HumaLOG SUB-Q SCH ×7 (09:31→22:20)
--- NOTE | 2018-08-06 09:50 | Hem/Onc Progress Note ---
Assessment and Plan 1. Elevated INR secondary to Coumadin for mechanical mitral valve. The INR was elevated. It is slowly coming down. The patient received blood transfusion. The patient had hematemesis. GI has been consulted. 2. Anemia, transfusion given. 3. Diabetic ketoacidosis. 4. Admitted for confusion. 5. Treated for sepsis. 6. Renal impairment. 7. Pharmacy will dose the Coumadin at this time as INR is coming down. We will observe. 8. I will follow the patient during inpatient stay. inr 2.4 - as per pharmacy - vit k was not given - but based on the trend it appears it was given repeat INR - coumadin 5 mg for now - pharmacy will try to call tyshawn to know how many mg coumadin pt is on pt says she took 1 and 1 and half tab a day 08/06/2018 iv heparin - as inr low - pt must have got vit k coumadin - pharmacy to dose s/p egd - Patient Problems (1) Coagulopathy Current Visit: Yes Status: Acute Subjective Date of service: 08/06/18 Principal diagnosis: no bleeding Interval history: s/p egd - pt on iv heparin Objective - Constitutional Vitals: Last Vital Signs Temp 98.5 F 08/06/18 04:11 Pulse 85 08/06/18 09:28 Resp 16 08/06/18 04:11 BP 153/100 08/06/18 09:28 Pulse Ox 100 08/06/18 04:11 - Labs Lab Results: Laboratory Results - last 24 hr 08/03/18 08/05/18 08/05/18 09:38 12:40 15:32 PT INR POC Glucose 147 H 310 H Blood Type O POSITIVE Antibody Screen Negative Crossmatch See Detail 08/05/18 08/05/18 08/05/18 18:16 18:49 21:36 PT 18.2 H INR 1.41 H POC Glucose 499 H 106 H Blood Type Antibody Screen Crossmatch 08/06/18 07:40 PT INR POC Glucose 305 H Blood Type Antibody Screen Crossmatch Medications & Allergies - Medications Allergies/Adverse Reactions: Allergies No Known Allergies Allergy (Verified 12/03/16 23:01) Home Medications: Home Medications Medication Instructions Recorded Confirmed Last Taken Type Metoprolol [Lopressor TAB] 25 mg PO BID #60 tablet 12/29/16 01/29/17 Unknown Rx Famotidine [Pepcid] 20 mg PO DAILY #30 tablet 02/04/17 Unknown Rx Furosemide [Lasix TAB] 40 mg PO 0600,1800 #60 tablet 02/04/17 Unknown Rx Insulin NPH/Regular [NovoLIN 70/30] 18 unit SQ BIDDIAB #1 vial 02/04/17 Unknown Rx Metoprolol [Lopressor TAB] 50 mg PO TID #90 tablet 02/04/17 Unknown Rx Coumadin 08/02/18 Unknown History Active Medications: Generic Name Dose Route Start Last Admin Trade Name Freq PRN Reason Stop Dose Admin Albuterol 2.5 mg 08/01/18 17:42 Proventil IH Q3HRT PRN Shortness Of Breath Aspirin 325 mg 08/02/18 10:00 08/06/18 09:28 Ecotrin PO Not Given QDAY ULI Dextrose 0 ml 08/01/18 17:42 08/04/18 19:00 D50w (25gm) Syringe IV 50 ml PRN PRN Administration Hypoglycemia Hydralazine HCl 10 mg 08/01/18 17:47 Apresoline IV TID PRN Hypertension Sodium Chloride 1,000 mls @ 75 mls/hr 08/04/18 17:00 08/04/18 23:39 Nacl 0.45% 1000 Ml IV 75 mls/hr DIRECT ULI Administration Sodium Chloride 1,000 mls @ 50 mls/hr 08/05/18 11:00 08/05/18 11:19 Nacl 0.9% 1000 Ml IV 50 mls/hr DIRECT ULI Administration Heparin Sodium/Sodium Chloride 25,000 unit in 500 mls @ 14 mls/hr 08/06/18 06:30 08/06/18 07:18 Heparin/ 0.45% Nacl-25,000 Unit/500 Ml IV 700 units/hr TITR ULI 14 mls/hr Administration Protocol 700 UNITS/HR Insulin Glargine 20 units 08/04/18 22:00 08/05/18 22:17 Lantus SUB-Q Not Given QHS ULI Insulin Human Lispro 0 unit 08/03/18 12:00 08/06/18 09:31 Humalog SUB-Q 6 unit ACHS ULI Administration Protocol Insulin Human Lispro 7 unit 08/04/18 17:28 08/06/18 09:32 Humalog SUB-Q 7 unit AC ULI Administration Metoprolol Tartrate 25 mg 08/05/18 22:00 08/06/18 09:28 Lopressor PO 25 mg BID ULI Administration Pantoprazole Sodium 40 mg 08/06/18 10:00 08/06/18 09:28 Protonix PO 40 mg DAILY ULI Administration Potassium Phos/Sodium Phos 1 each 08/04/18 14:00 08/06/18 07:05 Phos-Nak PO Not Given Q8HR ULI Sodium Bicarbonate 650 mg 08/04/18 10:00 08/06/18 09:28 Sodium Bicarbonate PO 650 mg BID ULI Administration Sodium Chloride 10 ml 08/01/18 22:00 08/06/18 09:29 Sodium Chloride Flush Syringe 10 Ml IV 10 ml BID ULI Administration Sodium Chloride 10 ml 08/01/18 17:42 Sodium Chloride Flush Syringe 10 Ml IV PRN PRN LINE FLUSH Warfarin Sodium 5 mg 08/05/18 21:00 08/05/18 22:20 Coumadin PO 5 mg DAILY@1700 ULI Administration Protocol
--- NOTE | 2018-08-06 10:31 | Progress Note ---
Assessment and Plan Cardiac status appears to be stable. No new symptoms are noted. Continue current management. - Patient Problems (1) Coagulopathy Current Visit: Yes Status: Acute (2) DKA (diabetic ketoacidoses) Current Visit: Yes Status: Acute Qualifiers: Diabetes mellitus complication detail: with coma (3) Cardiomyopathy Current Visit: Yes Status: Chronic Qualifiers: Cardiomyopathy type: unspecified Qualified Code(s): I42.9 - Cardiomyopathy, unspecified (4) Diabetes Current Visit: Yes Status: Chronic (5) H/O mitral valve replacement with mechanical valve Current Visit: Yes Status: Chronic Subjective Date of service: 08/06/18 Principal diagnosis: DKA Interval history: Patient is comfortable today. Prior notes are noted. On the endoscopy patient was noted to have gastritis no active bleeding. Patient denies chest pain or difficulty breathing. Objective Vital Signs Temp Pulse Resp BP BP Pulse Ox 08/06/18 09:28 85 153/100 08/06/18 04:11 98.5 F 87 16 131/88 100 08/06/18 03:14 81 18 100 08/06/18 03:13 84 18 113/95 100 08/06/18 02:44 81 18 100 08/06/18 02:43 83 100 08/06/18 02:42 84 18 128/85 99 08/06/18 02:27 98.2 F 83 18 128/85 100 08/06/18 02:11 85 19 133/79 98 08/06/18 01:39 83 100 08/06/18 01:38 85 18 116/79 99 08/06/18 01:08 85 100 08/06/18 01:07 85 18 122/75 100 08/06/18 00:57 98.2 F 85 19 133/79 98 08/06/18 00:38 85 100 08/06/18 00:37 84 18 119/73 100 08/06/18 00:27 98.4 F 78 18 116/79 100 08/06/18 00:01 89 18 106/82 100 08/06/18 00:00 98.6 F 87 18 106/82 100 08/05/18 23:42 98.3 F 85 18 119/73 100 08/05/18 23:10 91 H 100 08/05/18 23:09 91 H 18 113/78 100 08/05/18 23:05 98.9 F 91 H 18 113/78 100 08/05/18 20:45 89 08/05/18 20:07 98.9 F 89 16 118/80 100 08/05/18 15:30 97.9 F 88 18 122/74 100 08/05/18 12:40 98.4 F 84 18 125/81 100 08/05/18 12:06 82 20 120/80 98 08/05/18 11:51 81 24 109/70 100 08/05/18 11:36 97.5 F L 78 22 98/63 100 08/05/18 11:11 98.4 F 82 10 L 126/89 98 08/05/18 11:06 98.4 F 82 10 L 126/89 98 - Physical Examination General: No Apparent Distress HEENT: Positive: PERRL, Normocephaly, Mucus Membranes Moist Neck: Positive: neck supple, trachea midline Cardiac: Positive: Reg Rate and Rhythm, S1/S2, Other (prosthetic sounds are heard well.) Lungs: Positive: clear to auscultation Neuro: Positive: Grossly Intact Abdomen: Positive: Soft. Negative: Tender Skin: Negative: Rash Musculoskeletal: No Pain Extremities: Absent: edema - Labs and Meds Coagulation 08/05/18 Range/Units 18:49 PT 18.2 H (12.2-14.9) Sec. INR 1.41 H (0.87-1.13) - Imaging and Cardiology EKG: report reviewed Echo: report reviewed (07/2018: EF 40%, mild to mod LVH, LA and RA dilated, mod TR and SC, mechanical valve in mitral position that appears to be functioning properly. 11/2016 showed EF 40-45%, abnormal diastolic function, trace MR, mild TR, RVSP 36mmHg. ) - EKG Sinus rhythms and dysrhythmias: sinus rhythm
[2018-08-06] MEDS ORDERED: LANTUS SUB-Q SCH (12:00)
[2018-08-06 12:14] LABS: Basophils % (Auto) 0.7 % (0.0-1.8); Eosinophils # (Auto) 0.1 K/mm3 (0.0-0.4); Eosinophils % (Auto) 1.4 % (0.0-4.3); Hematocrit 25.9 % (30.3-42.9); Hemoglobin 8.6 gm/dl (10.1-14.3); Lymphocytes # (Auto) 1.7 K/mm3 (1.2-5.4); Lymphocytes % (Auto) 25.4 % (13.4-35.0); Mean Corpuscular HGB Conc 33 % (30-34); Mean Corpuscular Volume 84 fl (79-97); Monocytes # (Auto) 0.4 K/mm3 (0.0-0.8); Monocytes % (Auto) 5.9 % (0.0-7.3); Platelet Count 169 K/mm3 (140-440); Red Blood Count 3.08 M/mm3 (3.65-5.03); Red Cell Distribution Width 19.2 % (13.2-15.2)
[2018-08-06 12:26] LABS: INR 1.36 (0.87-1.13)
[2018-08-06 12:34] LABS: Calcium 6.7 mg/dL (8.4-10.2)
--- NOTE | 2018-08-06 13:15 | Progress Note ---
Assessment and Plan Impression * Acute on chronic renal failure * Status post DKA * Metabolic acidosis * Hypertension * History of mitral valve replacement * Cardiomyopathy Recommendations * Renal function seems to be improving. Continue gentle hydration. * Acidosis is also better. Should correct with treatment of DKA * Patient remains acidotic, may need to add oral sodium bicarbonate * Avoid nephrotoxins * Monitor fluid status and electrolytes closely Subjective Date of service: 08/06/18 Principal diagnosis: DKA Interval history: Patient is comfortable this morning. Does complain of some nausea but no vomiting. Denies any shortness of breath Objective - Vital Signs Vital signs: Vital Signs - 12hr 08/06/18 08/06/18 08/06/18 01:38 01:39 02:11 Temperature Pulse Rate 85 83 85 Respiratory 18 19 Rate Blood Pressure 116/79 133/79 O2 Sat by Pulse 99 100 98 Oximetry 08/06/18 08/06/18 08/06/18 02:27 02:42 02:43 Temperature 98.2 F Pulse Rate 83 84 83 Respiratory 18 18 Rate Blood Pressure 128/85 128/85 O2 Sat by Pulse 100 99 100 Oximetry 08/06/18 08/06/18 08/06/18 02:44 03:13 03:14 Temperature Pulse Rate 81 84 81 Respiratory 18 18 18 Rate Blood Pressure 113/95 O2 Sat by Pulse 100 100 100 Oximetry 08/06/18 08/06/18 08/06/18 04:11 09:23 09:28 Temperature 98.5 F Pulse Rate 87 85 85 Respiratory 16 Rate Blood Pressure 131/88 153/100 153/100 O2 Sat by Pulse 100 100 Oximetry 08/06/18 08/06/18 10:00 12:08 Temperature Pulse Rate 80 86 Respiratory Rate Blood Pressure 127/80 O2 Sat by Pulse 100 Oximetry - General Appearance General appearance: well-developed, well-nourished, appears stated age EENT: PERRL, mucous membranes moist Neck: no JVD, no thyromegaly, no carotid bruit, supple Respiratory: Present: Clear to Ascultation Cardiology: regular, normal heart rate, S1S2, no murmurs Gastrointestinal: normal, normoactive bowel sounds Integumentary: no rash, other (no edema) - Lab 08/06/18 11:55 08/06/18 11:55 Most recent lab results Calcium 6.7 mg/dL (8.4-10.2) L 08/06/18 11:55 Phosphorus 3.30 mg/dL (2.5-4.5) D 08/04/18 05:31 Magnesium 2.10 mg/dL (1.7-2.3) 08/04/18 05:31 Urine Creatinine 45.9 mg/dL (0.1-20.0) H 08/01/18 Unknown Urine Sodium 23 mmol/L 08/01/18 Unknown Medications & Allergies - Medications Allergies/Adverse Reactions: Allergies No Known Allergies Allergy (Verified 12/03/16 23:01) Home Medications: Home Medications Medication Instructions Recorded Confirmed Last Taken Type Metoprolol [Lopressor TAB] 25 mg PO BID #60 tablet 12/29/16 01/29/17 Unknown Rx Famotidine [Pepcid] 20 mg PO DAILY #30 tablet 02/04/17 Unknown Rx Furosemide [Lasix TAB] 40 mg PO 0600,1800 #60 tablet 02/04/17 Unknown Rx Insulin NPH/Regular [NovoLIN 70/30] 18 unit SQ BIDDIAB #1 vial 02/04/17 Unknown Rx Metoprolol [Lopressor TAB] 50 mg PO TID #90 tablet 02/04/17 Unknown Rx Coumadin 08/02/18 Unknown History Active Medications: Generic Name Dose Route Start Last Admin Trade Name Freq PRN Reason Stop Dose Admin Albuterol 2.5 mg 08/01/18 17:42 Proventil IH Q3HRT PRN Shortness Of Breath Aspirin 325 mg 08/02/18 10:00 08/06/18 09:28 Ecotrin PO Not Given QDAY ULI Dextrose 0 ml 08/01/18 17:42 08/04/18 19:00 D50w (25gm) Syringe IV 50 ml PRN PRN Administration Hypoglycemia Hydralazine HCl 10 mg 08/01/18 17:47 Apresoline IV TID PRN Hypertension Sodium Chloride 1,000 mls @ 75 mls/hr 08/04/18 17:00 08/04/18 23:39 Nacl 0.45% 1000 Ml IV 75 mls/hr DIRECT ULI Administration Sodium Chloride 1,000 mls @ 50 mls/hr 08/05/18 11:00 08/05/18 11:19 Nacl 0.9% 1000 Ml IV 50 mls/hr DIRECT ULI Administration Heparin Sodium/Sodium Chloride 25,000 unit in 500 mls @ 14 mls/hr 08/06/18 06:30 08/06/18 12:39 Heparin/ 0.45% Nacl-25,000 Unit/500 Ml IV 750 units/hr TITR ULI 15 mls/hr Administration Protocol 700 UNITS/HR Insulin Glargine 10 units 08/06/18 22:00 Lantus SUB-Q QHS ULI Insulin Human Lispro 0 unit 08/03/18 12:00 08/06/18 12:13 Humalog SUB-Q Not Given ACHS ULI Protocol Insulin Human Lispro 7 unit 08/04/18 17:28 08/06/18 12:14 Humalog SUB-Q Not Given AC [facility] Metoprolol Tartrate 25 mg 08/05/18 22:00 08/06/18 09:28 Lopressor PO 25 mg BID ULI Administration Pantoprazole Sodium 40 mg 08/06/18 10:00 08/06/18 09:28 Protonix PO 40 mg DAILY ULI Administration Potassium Phos/Sodium Phos 1 each 08/04/18 14:00 08/06/18 07:05 Phos-Nak PO Not Given Q8HR ULI Sodium Bicarbonate 650 mg 08/04/18 10:00 08/06/18 09:28 Sodium Bicarbonate PO 650 mg BID ULI Administration Sodium Chloride 10 ml 08/01/18 22:00 08/06/18 09:29 Sodium Chloride Flush Syringe 10 Ml IV 10 ml BID ULI Administration Sodium Chloride 10 ml 08/01/18 17:42 Sodium Chloride Flush Syringe 10 Ml IV PRN PRN LINE FLUSH Warfarin Sodium 5 mg 08/05/18 21:00 08/05/18 22:20 Coumadin PO 5 mg DAILY@1700 ULI Administration Protocol
[2018-08-06] MEDS ORDERED: IMODIUM PO PRN (14:19)
--- NOTE | 2018-08-06 14:22 | Progress Note ---
Assessment and Plan Assessment and plan: Acute on chronic Blood loss Anemia -transfused I unit of prbc -H/H improved, will monitor Suspected Upper GI bleeding -s/p EGD which showed gastritis -continue PPI Severe Coumadin toxicity -resolved DM Insulin dependent s/p DKA -BG improved -continue SC insulin therapy, adjust as needed h/o Mechanical Heart Valve -coumadin restarted -INR goal of 2.5-3.5, will monitor Acute Delirium -resolved Acute on CRF with metabolic acidosis -cr level improved -renal on board Elevated troponin, multifactorial susepct 2/2 demand cardio on board Disp: for d/c when medically stable History Interval history: pt complained of nausea without vomiting Hospitalist Physical - Constitutional Vitals: Temp Pulse Resp BP Pulse Ox 98.5 F 86 16 127/80 100 08/06/18 04:11 08/06/18 12:08 08/06/18 04:11 08/06/18 12:08 08/06/18 12:08 General appearance: Present: no acute distress - EENT Eyes: Present: PERRL, EOM intact ENT: hearing intact, clear oral mucosa - Neck Neck: Present: supple - Respiratory Respiratory effort: normal Respiratory: bilateral: CTA - Cardiovascular Rhythm: regular Heart Sounds: Present: S1 & S2 - Extremities Extremity abnormal: edema (in BLE) - Abdominal General gastrointestinal: soft, non-tender, non-distended, normal bowel sounds - Neurologic Neurologic: CNII-XII intact Results - Labs CBC & Chem 7: 08/06/18 11:55 08/06/18 11:55 Labs: Laboratory Last Values WBC 6.6 K/mm3 (4.5-11.0) 08/06/18 11:55 RBC 3.08 M/mm3 (3.65-5.03) L 08/06/18 11:55 Hgb 8.6 gm/dl (10.1-14.3) L 08/06/18 11:55 Hct 25.9 % (30.3-42.9) L 08/06/18 11:55 MCV 84 fl (79-97) 08/06/18 11:55 MCH 28 pg (28-32) 08/06/18 11:55 MCHC 33 % (30-34) 08/06/18 11:55 RDW 19.2 % (13.2-15.2) H 08/06/18 11:55 Plt Count 169 K/mm3 (140-440) 08/06/18 11:55 Lymph % (Auto) 25.4 % (13.4-35.0) 08/06/18 11:55 [place] % (Auto) 5.9 % (0.0-7.3) 08/06/18 11:55 Eos % (Auto) 1.4 % (0.0-4.3) 08/06/18 11:55 Baso % (Auto) 0.7 % (0.0-1.8) 08/06/18 11:55 Lymph # 1.7 K/mm3 (1.2-5.4) 08/06/18 11:55 [place] # 0.4 K/mm3 (0.0-0.8) 08/06/18 11:55 Eos # 0.1 K/mm3 (0.0-0.4) 08/06/18 11:55 Baso # 0.0 K/mm3 (0.0-0.1) 08/06/18 11:55 Add Manual Diff Complete 08/02/18 03:46 Total Counted 100 08/02/18 03:46 Seg Neutrophils % 66.6 % (40.0-70.0) 08/06/18 11:55 Seg Neuts % (Manual) 86.0 % (40.0-70.0) H 08/02/18 03:46 Band Neutrophils % 4.0 % 08/02/18 03:46 Lymphocytes % (Manual) 5.0 % (13.4-35.0) L 08/02/18 03:46 Reactive Lymphs % (Man) 0 % 08/02/18 03:46 Monocytes % (Manual) 5.0 % (0.0-7.3) 08/02/18 03:46 Eosinophils % (Manual) 0 % (0.0-4.3) 08/02/18 03:46 Basophils % (Manual) 0 % (0.0-1.8) 08/02/18 03:46 Metamyelocytes % 0 % 08/02/18 03:46 Myelocytes % 0 % 08/02/18 03:46 Promyelocytes % 0 % 08/02/18 03:46 Blast Cells % 0 % 08/02/18 03:46 Nucleated RBC % Not Reportable 08/02/18 03:46 Seg Neutrophils # 4.4 K/mm3 (1.8-7.7) 08/06/18 11:55 Seg Neutrophils # Man 14.4 K/mm3 (1.8-7.7) H 08/02/18 03:46 Band Neutrophils # 0.7 K/mm3 08/02/18 03:46 Lymphocytes # (Manual) 0.8 K/mm3 (1.2-5.4) L 08/02/18 03:46 Abs React Lymphs (Man) 0.0 K/mm3 08/02/18 03:46 Monocytes # (Manual) 0.8 K/mm3 (0.0-0.8) 08/02/18 03:46 Eosinophils # (Manual) 0.0 K/mm3 (0.0-0.4) 08/02/18 03:46 Basophils # (Manual) 0.0 K/mm3 (0.0-0.1) 08/02/18 03:46 Metamyelocytes # 0.0 K/mm3 08/02/18 03:46 Myelocytes # 0.0 K/mm3 08/02/18 03:46 Promyelocytes # 0.0 K/mm3 08/02/18 03:46 Blast Cells # 0.0 K/mm3 08/02/18 03:46 WBC Morphology Not Reportable 08/02/18 03:46 Hypersegmented Neuts Not Reportable 08/02/18 03:46 Hyposegmented Neuts Not Reportable 08/02/18 03:46 Hypogranular Neuts Not Reportable 08/02/18 03:46 Smudge Cells Not Reportable 08/02/18 03:46 Toxic Granulation Not Reportable 08/02/18 03:46 Toxic Vacuolation Not Reportable 08/02/18 03:46 Dohle Bodies Not Reportable 08/02/18 03:46 Pelger-Huet Anomaly Not Reportable 08/02/18 03:46 Mary Rods Not Reportable 08/02/18 03:46 Platelet Estimate Consistent w auto 08/02/18 03:46 Clumped Platelets Not Reportable 08/02/18 03:46 Plt Clumps, EDTA Not Reportable 08/02/18 03:46 Large Platelets Not Reportable 08/02/18 03:46 Giant Platelets Not Reportable 08/02/18 03:46 Platelet Satelliting Not Reportable 08/02/18 03:46 Plt Morphology Comment Not Reportable 08/02/18 03:46 RBC Morphology Not Reportable 08/02/18 03:46 Dimorphic RBCs Not Reportable 08/02/18 03:46 Polychromasia Not Reportable 08/02/18 03:46 Hypochromasia 1+ 08/02/18 03:46 Poikilocytosis Not Reportable 08/02/18 03:46 Anisocytosis 1+ 08/02/18 03:46 Microcytosis Not Reportable 08/02/18 03:46 Macrocytosis Not Reportable 08/02/18 03:46 Spherocytes Not Reportable 08/02/18 03:46 Pappenheimer Bodies Not Reportable 08/02/18 03:46 Sickle Cells Not Reportable 08/02/18 03:46 Target Cells Not Reportable 08/02/18 03:46 Tear Drop Cells Not Reportable 08/02/18 03:46 Ovalocytes Not Reportable 08/02/18 03:46 Helmet Cells Not Reportable 08/02/18 03:46 Landers-Mcclusky Bodies Not Reportable 08/02/18 03:46 [place] Rings Not Reportable 08/02/18 03:46 Jerri Cells Not Reportable 08/02/18 03:46 Bite Cells Not Reportable 08/02/18 03:46 Crenated Cell Few 08/02/18 03:46 Elliptocytes Not Reportable 08/02/18 03:46 Acanthocytes (Spur) Not Reportable 08/02/18 03:46 Rouleaux Not Reportable 08/02/18 03:46 Hemoglobin C Crystals Not Reportable 08/02/18 03:46 Schistocytes Not Reportable 08/02/18 03:46 Malaria parasites Not Reportable 08/02/18 03:46 Michael Bodies Not Reportable 08/02/18 03:46 Hem Pathologist Commnt No 08/02/18 03:46 PT 17.6 Sec. (12.2-14.9) H 08/06/18 11:55 INR 1.36 (0.87-1.13) H 08/06/18 11:55 APTT 27.0 Sec. (24.2-36.6) 08/06/18 11:55 Heparin Anti-Xa Level 0.23 U.I./ml (0.3-0.7) L 08/06/18 11:55 VBG pH 6.903 (7.320-7.420) L* 08/01/18 16:17 Sodium 136 mmol/L (137-145) L 08/06/18 11:55 Potassium 4.7 mmol/L (3.6-5.0) 08/06/18 11:55 Chloride 104.9 mmol/L (98-107) 08/06/18 11:55 Carbon Dioxide 16 mmol/L (22-30) L 08/06/18 11:55 Anion Gap 20 mmol/L 08/06/18 11:55 BUN 30 mg/dL (7-17) H 08/06/18 11:55 Creatinine 1.8 mg/dL (0.7-1.2) H 08/06/18 11:55 Estimated GFR 36 ml/min 08/06/18 11:55 BUN/Creatinine Ratio 17 % 08/06/18 11:55 Glucose 143 mg/dL (65-100) H 08/06/18 11:55 POC Glucose 120 (70-105) H 08/06/18 12:13 Lactic Acid 1.90 mmol/L (0.7-2.0) 08/03/18 09:41 Calcium 6.7 mg/dL (8.4-10.2) L 08/06/18 11:55 Phosphorus 3.30 mg/dL (2.5-4.5) D 08/04/18 05:31 Magnesium 2.10 mg/dL (1.7-2.3) 08/04/18 05:31 Iron 97 ug/dL (37-170) 08/04/18 19:22 TIBC 258 mcg/dL (250-450) 08/04/18 19:22 Ferritin 258.8 ng/mL (13.0-400.0) 08/04/18 19:22 Total Bilirubin 0.40 mg/dL (0.1-1.2) 08/04/18 09:38 Direct Bilirubin < 0.2 mg/dL (0-0.2) 08/04/18 09:38 Indirect Bilirubin 0.2 mg/dL 08/04/18 09:38 AST 127 units/L (5-40) H 08/04/18 09:38 ALT 40 units/L (7-56) 08/04/18 09:38 Alkaline Phosphatase 262 units/L (35-129) H 08/04/18 09:38 Troponin T 0.079 ng/mL (0.00-0.029) H D 08/03/18 08:20 Total Protein 4.8 g/dL (6.3-8.2) L 08/04/18 09:38 Albumin 2.7 g/dL (3.9-5) L 08/04/18 09:38 Albumin/Globulin Ratio 1.3 % 08/04/18 09:38 Triglycerides 279 mg/dL (2-149) H 08/01/18 16:17 Cholesterol 229 mg/dL (50-199) H 08/01/18 16:17 LDL Cholesterol Direct 154 mg/dL (50-130) H 08/01/18 16:17 HDL Cholesterol 47 mg/dL (40-59) 08/01/18 16:17 Cholesterol/HDL Ratio 4.87 % 08/01/18 16:17 Lipase 43 units/L (13-60) 08/01/18 16:17 Vitamin B12 > 2000 pg/mL (211-911) H 08/04/18 19:36 Folate 8.75 ng/mL (7.3-26.0) 08/04/18 19:36 Urine Color Yellow (Yellow) 08/01/18 17:15 Urine Turbidity Cloudy (Clear) 08/01/18 17:15 Urine pH 5.0 (5.0-7.0) 08/01/18 17:15 Ur Specific [place] 1.021 (1.003-1.030) 08/01/18 17:15 Urine Protein 100 mg/dl mg/dL (Negative) 08/01/18 17:15 Urine Glucose (UA) >=500 mg/dL (Negative) 08/01/18 17:15 Urine Ketones 20 mg/dL (Negative) 08/01/18 17:15 Urine Blood Mod (Negative) 08/01/18 17:15 Urine Nitrite Neg (Negative) 08/01/18 17:15 Urine Bilirubin Neg (Negative) 08/01/18 17:15 Urine Urobilinogen < 2.0 mg/dL (<2.0) 08/01/18 17:15 Ur Leukocyte Esterase Neg (Negative) 08/01/18 17:15 Urine WBC (Auto) 17.0 /HPF (0.0-6.0) H 08/01/18 17:15 Urine RBC (Auto) 4.0 /HPF (0.0-6.0) 08/01/18 17:15 U Epithel Cells (Auto) 23.0 /HPF (0-13.0) H 08/01/18 17:15 Urine Bacteria (Auto) 1+ /HPF (Negative) 08/01/18 17:15 Urine Mucus Few /HPF 08/01/18 17:15 Urine Yeast (Budding) 2+ /HPF 08/01/18 17:15 Urine Creatinine 45.9 mg/dL (0.1-20.0) H 08/01/18 Unknown Urine Sodium 23 mmol/L 08/01/18 Unknown Influenza A (Rapid) Negative (Negative) 08/04/18 05:30 Influenza B (Rapid) Negative (Negative) 08/04/18 05:30 Blood Type O POSITIVE 08/03/18 09:38 Antibody Screen Negative 08/03/18 09:38 Crossmatch See Detail 08/03/18 09:38 Nutrition/Malnutrition Assess - Dietary Evaluation Nutrition/Malnutrition Findings: Nutrition Notes Start: 08/02/18 10:23 Freq: Status: Active Protocol: Document 08/04/18 12:09 CP (Rec: 08/04/18 12:17 CP [id number]) Co-Sign 08/04/18 12:09 LP Nutrition Notes Initial or Follow up Reassessment Current Diagnosis Coronary Artery Disease Diabetes Hypertension Stroke Other Pertinent Diagnosis DKA, GERD Current Diet Consistent CHO, Glucerna TID Labs/Tests Na 135 BUN 34 Cr 2.1 BG 296 Pertinent Medications Reviewed Height 5 ft 4 in Weight 45.359 kg [place] Body Weight (kg) 54.54 BMI 17.2 Intake Prior to Admission Poor Weight Status Underweight Subjective/Other Information Pt reports having a "good" appetite and has been consuming 90% of her meals since her diet has been advanced. Pt consuming her glucerna. Percent of energy/protein needs met: 100%/100% Burn Absent Trauma Absent #1 Nutrition Diagnosis Inadequate oral intake Etiology DKA As Evidenced by Signs and Symptoms Pt meeting 100% of her energy and pro needs Diagnosis Progress(for reassessment Improved documentation) Is patient on ventilator? No Is Patient Ambulatory and/or Out of Bed No REE-([place]-St. Jeor-confined to bed) 1280.472 Kcal/Kg value to use for calculation 35 Approximate Energy Requirements Using 1588 kcal/Kg Calculation Used for Recommendations Kcal/kg Additional Notes PRO: 54-91g (1.2-2 g/kg) Fluid: 1mL/hr Nutrition Intervention Change Diet Order: Continue current Add Supplement/Snack (indicate name/kcal Glucerna TID /protein ) Provides kCal: 660 Provides Protein (gm) 30 Goal #1 PO and ONS intake to continue to meet at least 80% of pro and energy needs Anticipated Discharge Needs: Consistent CHO Follow-Up By: 08/08/18 Additional Comments F/U: Stable PO and ONS intakes
[2018-08-06] MEDS ORDERED: COUMADIN PO SCH (17:00)
[2018-08-06] MEDS: LANTUS SUB-Q SCH (22:20)
[2018-08-07] MEDS: PHOS-NAK PO SCH ×3 (05:59→21:54)
[2018-08-07 07:42] LABS: Basophils # (Auto) 0.1 K/mm3 (0.0-0.1); Basophils % (Auto) 0.8 % (0.0-1.8); Eosinophils # (Auto) 0.1 K/mm3 (0.0-0.4); Eosinophils % (Auto) 1.8 % (0.0-4.3); Hematocrit 25.6 % (30.3-42.9); Hemoglobin 8.5 gm/dl (10.1-14.3); Lymphocytes % (Auto) 25.3 % (13.4-35.0); Mean Corpuscular HGB Conc 33 % (30-34); Mean Corpuscular Volume 84 fl (79-97); Monocytes # (Auto) 0.6 K/mm3 (0.0-0.8); Monocytes % (Auto) 7.6 % (0.0-7.3); Platelet Count 205 K/mm3 (140-440); Red Blood Count 3.05 M/mm3 (3.65-5.03); Red Cell Distribution Width 19.3 % (13.2-15.2)
[2018-08-07] MEDS: SODIUM CHLORIDE FLUSH SYRINGE 10 ML IV SCH ×3 (07:42→21:55)
[2018-08-07 07:53] LABS: INR 1.33 (0.87-1.13)
[2018-08-07 08:00] LABS: Calcium 6.8 mg/dL (8.4-10.2)
[2018-08-07] MEDS: HumaLOG SUB-Q SCH ×6 (08:00→21:53)
--- NOTE | 2018-08-07 08:08 | Hem/Onc Progress Note ---
Assessment and Plan 1. h/o Elevated INR secondary to Coumadin for mechanical mitral valve. The INR was elevated. The patient received blood transfusion. The patient had hematemesis. GI has been consulted. 2. Anemia, transfusion given. 3. Diabetic ketoacidosis. 4. Admitted for confusion. 5. Treated for sepsis. 6. Renal impairment. 7. Pharmacy will dose the Coumadin at this time INR. We will observe. 8. I will follow the patient during inpatient stay. inr 2.4 - as per pharmacy - vit k was not given - but based on the trend it appears it was given repeat INR - coumadin 5 mg for now - pharmacy will try to call tyshawn to know how many mg coumadin pt is on pt says she took 1 and 1 and half tab a day 08/06/2018 iv heparin - as inr low - pt must have got vit k coumadin - pharmacy to dose s/p egd 08/07 - inr low - iv heparin - d/w RN reg anti Xa level - Patient Problems (1) Coagulopathy Current Visit: Yes Status: Acute Subjective Date of service: 08/07/18 Principal diagnosis: abn INR -coumadin Interval history: no bleeding Objective - Constitutional Vitals: Last Vital Signs Temp 98.3 F 08/07/18 04:50 Pulse 82 08/07/18 04:50 Resp 20 08/07/18 04:50 BP 149/88 08/07/18 04:50 Pulse Ox 100 08/07/18 04:50 Pain Intensity (0-10): denies any pain General appearance: no acute distress Performance status: 2- selfcare, ambulatory - EENT Eyes: EOM intact ENT: clear oral mucosa - Neck Neck: normal ROM - Respiratory Respiratory effort: Positive: normal Respiratory: bilateral: CTA - Cardiovascular Heart Sounds: Present: click (mechanical heart sound) Extremities: No edema - Gastrointestinal General gastrointestinal: Present: soft, non-tender Rectal Exam: deferred - Genitourinary Female genitourinary: Present: deferred - Integumentary Integumentary: warm - Musculoskeletal Musculoskeletal: strength equal bilaterally - Neurologic Neurologic: moves all extremities - Psychiatric Psychiatric: appropriate mood/affect - Labs Lab Results: Laboratory Results - last 24 hr 08/06/18 08/06/18 08/06/18 11:55 11:55 11:55 WBC 6.6 RBC 3.08 L Hgb 8.6 L Hct 25.9 L MCV 84 MCH 28 MCHC 33 RDW 19.2 H Plt Count 169 Lymph % (Auto) 25.4 [place] % (Auto) 5.9 Eos % (Auto) 1.4 Baso % (Auto) 0.7 Lymph # 1.7 [place] # 0.4 Eos # 0.1 Baso # 0.0 Seg Neutrophils % 66.6 Seg Neutrophils # 4.4 PT INR APTT 27.0 Heparin Anti-Xa Level Sodium 136 L Potassium 4.7 Chloride 104.9 Carbon Dioxide 16 L Anion Gap 20 BUN 30 H Creatinine 1.8 H Estimated GFR 36 BUN/Creatinine Ratio 17 Glucose 143 H POC Glucose Calcium 6.7 L 08/06/18 08/06/18 08/06/18 11:55 11:55 12:13 WBC RBC Hgb Hct MCV MCH MCHC RDW Plt Count Lymph % (Auto) [place] % (Auto) Eos % (Auto) Baso % (Auto) Lymph # [place] # Eos # Baso # Seg Neutrophils % Seg Neutrophils # PT 17.6 H INR 1.36 H APTT Heparin Anti-Xa Level 0.23 L Sodium Potassium Chloride Carbon Dioxide Anion Gap BUN Creatinine Estimated GFR BUN/Creatinine Ratio Glucose POC Glucose 120 H Calcium 08/06/18 08/06/18 08/06/18 16:46 19:46 21:30 WBC RBC Hgb Hct MCV MCH MCHC RDW Plt Count Lymph % (Auto) [place] % (Auto) Eos % (Auto) Baso % (Auto) Lymph # [place] # Eos # Baso # Seg Neutrophils % Seg Neutrophils # PT INR APTT Heparin Anti-Xa Level 0.24 L Sodium Potassium Chloride Carbon Dioxide Anion Gap BUN Creatinine Estimated GFR BUN/Creatinine Ratio Glucose POC Glucose 182 H 112 H Calcium 08/07/18 08/07/18 08/07/18 07:09 07:13 07:13 WBC 7.9 RBC 3.05 L Hgb 8.5 L Hct 25.6 L MCV 84 MCH 28 MCHC 33 RDW 19.3 H Plt Count 205 Lymph % (Auto) 25.3 [place] % (Auto) 7.6 H Eos % (Auto) 1.8 Baso % (Auto) 0.8 Lymph # 2.0 [place] # 0.6 Eos # 0.1 Baso # 0.1 Seg Neutrophils % 64.5 Seg Neutrophils # 5.1 PT 17.3 H INR 1.33 H APTT Heparin Anti-Xa Level 0.24 L Sodium 137 Potassium 4.9 Chloride 105.5 Carbon Dioxide 18 L Anion Gap 18 BUN 28 H Creatinine 1.6 H Estimated GFR 41 BUN/Creatinine Ratio 18 Glucose 192 H POC Glucose Calcium 6.8 L Medications & Allergies - Medications Allergies/Adverse Reactions: Allergies No Known Allergies Allergy (Verified 12/03/16 23:01) Home Medications: Home Medications Medication Instructions Recorded Confirmed Last Taken Type Metoprolol [Lopressor TAB] 25 mg PO BID #60 tablet 12/29/16 01/29/17 Unknown Rx Famotidine [Pepcid] 20 mg PO DAILY #30 tablet 02/04/17 08/07/18 Unknown Rx Furosemide [Lasix TAB] 40 mg PO 0600,1800 #60 tablet 02/04/17 08/07/18 Unknown Rx Insulin NPH/Regular [NovoLIN 70/30] 18 unit SQ BIDDIAB #1 vial 02/04/17 08/07/18 Unknown Rx Metoprolol [Lopressor TAB] 50 mg PO TID #90 tablet 02/04/17 08/07/18 Unknown Rx Coumadin 08/02/18 Unknown History Active Medications: Generic Name Dose Route Start Last Admin Trade Name Freq PRN Reason Stop Dose Admin Albuterol 2.5 mg 08/01/18 17:42 Proventil IH Q3HRT PRN Shortness Of Breath Aspirin 325 mg 08/02/18 10:00 08/06/18 09:28 Ecotrin PO Not Given QDAY ULI Dextrose 0 ml 08/01/18 17:42 08/04/18 19:00 D50w (25gm) Syringe IV 50 ml PRN PRN Administration Hypoglycemia Hydralazine HCl 10 mg 08/01/18 17:47 Apresoline IV TID PRN Hypertension Sodium Chloride 1,000 mls @ 75 mls/hr 08/04/18 17:00 08/04/18 23:39 Nacl 0.45% 1000 Ml IV 75 mls/hr DIRECT ULI Administration Sodium Chloride 1,000 mls @ 50 mls/hr 08/05/18 11:00 08/05/18 11:19 Nacl 0.9% 1000 Ml IV 50 mls/hr DIRECT ULI Administration Heparin Sodium/Sodium Chloride 25,000 unit in 500 mls @ 14 mls/hr 08/06/18 06:30 08/06/18 22:13 Heparin/ 0.45% Nacl-25,000 Unit/500 Ml IV 800 units/hr TITR ULI 16 mls/hr Titration Protocol 700 UNITS/HR Insulin Glargine 10 units 08/06/18 22:00 08/06/18 22:20 Lantus SUB-Q 10 units QHS ULI Administration Insulin Human Lispro 0 unit 08/03/18 12:00 08/06/18 22:20 Humalog SUB-Q Not Given ACHS [facility] Protocol Insulin Human Lispro 7 unit 08/04/18 17:28 08/06/18 17:28 Humalog SUB-Q 7 unit AC ULI Administration Loperamide HCl 2 mg 08/06/18 14:19 Imodium PO Q2H PRN Diarrhea Metoprolol Tartrate 25 mg 08/05/18 22:00 08/06/18 22:12 Lopressor PO 25 mg BID ULI Administration Pantoprazole Sodium 40 mg 08/06/18 10:00 08/06/18 09:28 Protonix PO 40 mg DAILY ULI Administration Potassium Phos/Sodium Phos 1 each 08/04/18 14:00 08/07/18 05:59 Phos-Nak PO Not Given Q8HR ULI Sodium Bicarbonate 650 mg 08/04/18 10:00 08/06/18 22:12 Sodium Bicarbonate PO 650 mg BID ULI Administration Sodium Chloride 10 ml 08/01/18 22:00 08/07/18 07:42 Sodium Chloride Flush Syringe 10 Ml IV Not Given BID ULI Sodium Chloride 10 ml 08/01/18 17:42 Sodium Chloride Flush Syringe 10 Ml IV PRN PRN LINE FLUSH Warfarin Sodium 6 mg 08/06/18 17:00 08/06/18 17:27 Coumadin PO 6 mg DAILY@1700 [facility] Administration Protocol
[2018-08-07] MEDS: HEPARIN/ 0.45% NACL-25,000 UNIT/500 ML 25,000 UNIT/500 ML BAG IV SCH ×2 (08:17→19:26)
[2018-08-07] MEDS: PROTONIX PO SCH (10:31)
[2018-08-07] MEDS: ECOTRIN PO SCH (10:31)
[2018-08-07] MEDS: LOPRESSOR PO SCH ×2 (10:32→21:53)
[2018-08-07] MEDS: SODIUM BICARBONATE PO SCH ×2 (10:32→21:53)
--- NOTE | 2018-08-07 11:35 | Progress Note ---
Assessment and Plan Impression * Acute on chronic renal failure * Status post DKA * Metabolic acidosis * Hypertension * History of mitral valve replacement * Cardiomyopathy Recommendations * Renal function seems to be improving. Continue gentle hydration. * Acidosis is also better. Should correct with treatment of DKA * If patient remains acidotic, may need to add oral sodium bicarbonate * Avoid nephrotoxins * Monitor fluid status and electrolytes closely Subjective Date of service: 08/07/18 Principal diagnosis: no bleeding Interval history: Patient complains of some nausea and vomiting. Her po intake somewhat poor. Denies any shortness of breath. Objective - Vital Signs Vital signs: Vital Signs - 12hr 08/07/18 08/07/18 04:50 08:32 Temperature 98.3 F 98.2 F Pulse Rate 82 81 Respiratory 20 16 Rate Blood Pressure 149/88 143/93 O2 Sat by Pulse 100 99 Oximetry - General Appearance General appearance: well-developed, well-nourished, appears stated age EENT: PERRL, mucous membranes moist Neck: no JVD, no thyromegaly, no carotid bruit, supple Respiratory: Present: Clear to Ascultation Cardiology: regular, normal heart rate, S1S2, no murmurs Gastrointestinal: normal, normoactive bowel sounds - Lab 08/07/18 07:09 08/07/18 07:13 Most recent lab results Calcium 6.8 mg/dL (8.4-10.2) L 08/07/18 07:13 Phosphorus 3.30 mg/dL (2.5-4.5) D 08/04/18 05:31 Magnesium 2.10 mg/dL (1.7-2.3) 08/04/18 05:31 Urine Creatinine 45.9 mg/dL (0.1-20.0) H 08/01/18 Unknown Urine Sodium 23 mmol/L 08/01/18 Unknown Medications & Allergies - Medications Allergies/Adverse Reactions: Allergies No Known Allergies Allergy (Verified 12/03/16 23:01) Home Medications: Home Medications Medication Instructions Recorded Confirmed Last Taken Type Metoprolol [Lopressor TAB] 25 mg PO BID #60 tablet 12/29/16 01/29/17 Unknown Rx Famotidine [Pepcid] 20 mg PO DAILY #30 tablet 02/04/17 Unknown Rx Furosemide [Lasix TAB] 40 mg PO 0600,1800 #60 tablet 02/04/17 Unknown Rx Insulin NPH/Regular [NovoLIN 70/30] 18 unit SQ BIDDIAB #1 vial 02/04/17 Unknown Rx Metoprolol [Lopressor TAB] 50 mg PO TID #90 tablet 02/04/17 Unknown Rx Coumadin 08/02/18 Unknown History Active Medications: Generic Name Dose Route Start Last Admin Trade Name Freq PRN Reason Stop Dose Admin Albuterol 2.5 mg 08/01/18 17:42 Proventil IH Q3HRT PRN Shortness Of Breath Aspirin 325 mg 08/02/18 10:00 08/07/18 10:31 Ecotrin PO 325 mg QDAY ULI Administration Dextrose 0 ml 08/01/18 17:42 08/04/18 19:00 D50w (25gm) Syringe IV 50 ml PRN PRN Administration Hypoglycemia Hydralazine HCl 10 mg 08/01/18 17:47 Apresoline IV TID PRN Hypertension Sodium Chloride 1,000 mls @ 75 mls/hr 08/04/18 17:00 08/04/18 23:39 Nacl 0.45% 1000 Ml IV 75 mls/hr DIRECT ULI Administration Sodium Chloride 1,000 mls @ 50 mls/hr 08/05/18 11:00 08/05/18 11:19 Nacl 0.9% 1000 Ml IV 50 mls/hr DIRECT ULI Administration Heparin Sodium/Sodium Chloride 25,000 unit in 500 mls @ 14 mls/hr 08/06/18 06:30 08/07/18 08:17 Heparin/ 0.45% Nacl-25,000 Unit/500 Ml IV 850 units/hr TITR ULI 17 mls/hr Administration Protocol 700 UNITS/HR Insulin Glargine 10 units 08/06/18 22:00 08/06/18 22:20 Lantus SUB-Q 10 units QHS ULI Administration Insulin Human Lispro 0 unit 08/03/18 12:00 08/07/18 08:00 Humalog SUB-Q 2 unit ACHS ULI Administration Protocol Insulin Human Lispro 7 unit 08/04/18 17:28 08/07/18 08:00 Humalog SUB-Q 7 unit AC ULI Administration Loperamide HCl 2 mg 08/06/18 14:19 Imodium PO Q2H PRN Diarrhea Metoprolol Tartrate 25 mg 08/05/18 22:00 08/07/18 10:32 Lopressor PO 25 mg BID ULI Administration Pantoprazole Sodium 40 mg 08/06/18 10:00 08/07/18 10:31 Protonix PO 40 mg DAILY ULI Administration Potassium Phos/Sodium Phos 1 each 08/04/18 14:00 08/07/18 05:59 Phos-Nak PO Not Given Q8HR ULI Sodium Bicarbonate 650 mg 08/04/18 10:00 08/07/18 10:32 Sodium Bicarbonate PO 650 mg BID ULI Administration Sodium Chloride 10 ml 08/01/18 22:00 08/07/18 10:32 Sodium Chloride Flush Syringe 10 Ml IV 10 ml BID ULI Administration Sodium Chloride 10 ml 08/01/18 17:42 Sodium Chloride Flush Syringe 10 Ml IV PRN PRN LINE FLUSH Warfarin Sodium 7.5 mg 08/07/18 17:00 Coumadin PO DAILY@1700 [facility] Protocol
[2018-08-07] MEDS: D50W (25GM) Syringe IV PRN (12:10)
--- NOTE | 2018-08-07 14:08 | Progress Note ---
Assessment and Plan Assessment and plan: Acute on chronic Blood loss Anemia -transfused I unit of prbc -H/H stable, will monitor Suspected Upper GI bleeding -s/p EGD which showed gastritis -continue PPI Severe Coumadin toxicity -resolved DM Insulin dependent s/p DKA -BG stable on current insulin therapy, adjust as needed h/o Mechanical Heart Valve -cont coumadin -INR goal of 2.5-3.5, will monitor Acute delirium, probably 2/2 alcohol withdrawal -on alcohol withdrawal protocol -consider head CT scan if no improvement Acute on CRF with metabolic acidosis -levels improving, will monitor -renal US neg -nephrology on board Elevated troponin, multifactorial susepct 2/2 demand -echo showed EF of 40% with moderate TR and MN -cardio on board Hx of alcohol abuse -cessation recommended Disp: for d/c when medically stable and INR level is therapeutic History Interval history: Pt is confused this am and unable to communicate appropriately Hospitalist Physical - Constitutional Vitals: Temp Pulse Resp BP Pulse Ox 98.2 F 81 16 143/93 99 08/07/18 08:32 08/07/18 08:32 08/07/18 08:32 08/07/18 08:32 08/07/18 08:32 General appearance: Present: no acute distress - EENT Eyes: Present: PERRL, EOM intact ENT: hearing intact, clear oral mucosa - Neck Neck: Present: supple - Respiratory Respiratory effort: normal Respiratory: bilateral: CTA - Cardiovascular Rhythm: regular Heart Sounds: Present: S1 & S2 - Extremities Extremity abnormal: edema (in BLE) - Abdominal General gastrointestinal: soft, non-tender, non-distended, normal bowel sounds - Neurologic Neurologic: CNII-XII intact Results - Labs CBC & Chem 7: 08/07/18 07:09 08/07/18 12:27 Labs: Laboratory Last Values WBC 7.9 K/mm3 (4.5-11.0) 08/07/18 07:09 RBC 3.05 M/mm3 (3.65-5.03) L 08/07/18 07:09 Hgb 8.5 gm/dl (10.1-14.3) L 08/07/18 07:09 Hct 25.6 % (30.3-42.9) L 08/07/18 07:09 MCV 84 fl (79-97) 08/07/18 07:09 MCH 28 pg (28-32) 08/07/18 07:09 MCHC 33 % (30-34) 08/07/18 07:09 RDW 19.3 % (13.2-15.2) H 08/07/18 07:09 Plt Count 205 K/mm3 (140-440) 08/07/18 07:09 Lymph % (Auto) 25.3 % (13.4-35.0) 08/07/18 07:09 [place] % (Auto) 7.6 % (0.0-7.3) H 08/07/18 07:09 Eos % (Auto) 1.8 % (0.0-4.3) 08/07/18 07:09 Baso % (Auto) 0.8 % (0.0-1.8) 08/07/18 07:09 Lymph # 2.0 K/mm3 (1.2-5.4) 08/07/18 07:09 [place] # 0.6 K/mm3 (0.0-0.8) 08/07/18 07:09 Eos # 0.1 K/mm3 (0.0-0.4) 08/07/18 07:09 Baso # 0.1 K/mm3 (0.0-0.1) 08/07/18 07:09 Add Manual Diff Complete 08/02/18 03:46 Total Counted 100 08/02/18 03:46 Seg Neutrophils % 64.5 % (40.0-70.0) 08/07/18 07:09 Seg Neuts % (Manual) 86.0 % (40.0-70.0) H 08/02/18 03:46 Band Neutrophils % 4.0 % 08/02/18 03:46 Lymphocytes % (Manual) 5.0 % (13.4-35.0) L 08/02/18 03:46 Reactive Lymphs % (Man) 0 % 08/02/18 03:46 Monocytes % (Manual) 5.0 % (0.0-7.3) 08/02/18 03:46 Eosinophils % (Manual) 0 % (0.0-4.3) 08/02/18 03:46 Basophils % (Manual) 0 % (0.0-1.8) 08/02/18 03:46 Metamyelocytes % 0 % 08/02/18 03:46 Myelocytes % 0 % 08/02/18 03:46 Promyelocytes % 0 % 08/02/18 03:46 Blast Cells % 0 % 08/02/18 03:46 Nucleated RBC % Not Reportable 08/02/18 03:46 Seg Neutrophils # 5.1 K/mm3 (1.8-7.7) 08/07/18 07:09 Seg Neutrophils # Man 14.4 K/mm3 (1.8-7.7) H 08/02/18 03:46 Band Neutrophils # 0.7 K/mm3 08/02/18 03:46 Lymphocytes # (Manual) 0.8 K/mm3 (1.2-5.4) L 08/02/18 03:46 Abs React Lymphs (Man) 0.0 K/mm3 08/02/18 03:46 Monocytes # (Manual) 0.8 K/mm3 (0.0-0.8) 08/02/18 03:46 Eosinophils # (Manual) 0.0 K/mm3 (0.0-0.4) 08/02/18 03:46 Basophils # (Manual) 0.0 K/mm3 (0.0-0.1) 08/02/18 03:46 Metamyelocytes # 0.0 K/mm3 08/02/18 03:46 Myelocytes # 0.0 K/mm3 08/02/18 03:46 Promyelocytes # 0.0 K/mm3 08/02/18 03:46 Blast Cells # 0.0 K/mm3 08/02/18 03:46 WBC Morphology Not Reportable 08/02/18 03:46 Hypersegmented Neuts Not Reportable 08/02/18 03:46 Hyposegmented Neuts Not Reportable 08/02/18 03:46 Hypogranular Neuts Not Reportable 08/02/18 03:46 Smudge Cells Not Reportable 08/02/18 03:46 Toxic Granulation Not Reportable 08/02/18 03:46 Toxic Vacuolation Not Reportable 08/02/18 03:46 Dohle Bodies Not Reportable 08/02/18 03:46 Pelger-Huet Anomaly Not Reportable 08/02/18 03:46 Mary Rods Not Reportable 08/02/18 03:46 Platelet Estimate Consistent w auto 08/02/18 03:46 Clumped Platelets Not Reportable 08/02/18 03:46 Plt Clumps, EDTA Not Reportable 08/02/18 03:46 Large Platelets Not Reportable 08/02/18 03:46 Giant Platelets Not Reportable 08/02/18 03:46 Platelet Satelliting Not Reportable 08/02/18 03:46 Plt Morphology Comment Not Reportable 08/02/18 03:46 RBC Morphology Not Reportable 08/02/18 03:46 Dimorphic RBCs Not Reportable 08/02/18 03:46 Polychromasia Not Reportable 08/02/18 03:46 Hypochromasia 1+ 08/02/18 03:46 Poikilocytosis Not Reportable 08/02/18 03:46 Anisocytosis 1+ 08/02/18 03:46 Microcytosis Not Reportable 08/02/18 03:46 Macrocytosis Not Reportable 08/02/18 03:46 Spherocytes Not Reportable 08/02/18 03:46 Pappenheimer Bodies Not Reportable 08/02/18 03:46 Sickle Cells Not Reportable 08/02/18 03:46 Target Cells Not Reportable 08/02/18 03:46 Tear Drop Cells Not Reportable 08/02/18 03:46 Ovalocytes Not Reportable 08/02/18 03:46 Helmet Cells Not Reportable 08/02/18 03:46 [place]abi Bodies Not Reportable 08/02/18 03:46 [place] Rings Not Reportable 08/02/18 03:46 Jerri Cells Not Reportable 08/02/18 03:46 Bite Cells Not Reportable 08/02/18 03:46 Crenated Cell Few 08/02/18 03:46 Elliptocytes Not Reportable 08/02/18 03:46 Acanthocytes (Spur) Not Reportable 08/02/18 03:46 Rouleaux Not Reportable 08/02/18 03:46 Hemoglobin C Crystals Not Reportable 08/02/18 03:46 Schistocytes Not Reportable 08/02/18 03:46 Malaria parasites Not Reportable 08/02/18 03:46 Michael Bodies Not Reportable 08/02/18 03:46 Hem Pathologist Commnt No 08/02/18 03:46 PT 17.3 Sec. (12.2-14.9) H 08/07/18 07:13 INR 1.33 (0.87-1.13) H 08/07/18 07:13 APTT 27.0 Sec. (24.2-36.6) 08/06/18 11:55 Heparin Anti-Xa Level 0.24 U.I./ml (0.3-0.7) L 08/07/18 07:13 VBG pH 6.903 (7.320-7.420) L* 08/01/18 16:17 Sodium 137 mmol/L (137-145) 08/07/18 07:13 Potassium 4.9 mmol/L (3.6-5.0) 08/07/18 07:13 Chloride 105.5 mmol/L (98-107) 08/07/18 07:13 Carbon Dioxide 18 mmol/L (22-30) L 08/07/18 07:13 Anion Gap 18 mmol/L 08/07/18 07:13 BUN 28 mg/dL (7-17) H 08/07/18 07:13 Creatinine 1.6 mg/dL (0.7-1.2) H 08/07/18 07:13 Estimated GFR 41 ml/min 08/07/18 07:13 BUN/Creatinine Ratio 18 % 08/07/18 07:13 Glucose 112 mg/dL (65-100) H 08/07/18 12:27 POC Glucose 189 (70-105) H 08/07/18 07:47 Lactic Acid 1.90 mmol/L (0.7-2.0) 08/03/18 09:41 Calcium 6.8 mg/dL (8.4-10.2) L 08/07/18 07:13 Phosphorus 3.30 mg/dL (2.5-4.5) D 08/04/18 05:31 Magnesium 2.10 mg/dL (1.7-2.3) 08/04/18 05:31 Iron 97 ug/dL (37-170) 08/04/18 19:22 TIBC 258 mcg/dL (250-450) 08/04/18 19:22 Ferritin 258.8 ng/mL (13.0-400.0) 08/04/18 19:22 Total Bilirubin 0.40 mg/dL (0.1-1.2) 08/04/18 09:38 Direct Bilirubin < 0.2 mg/dL (0-0.2) 08/04/18 09:38 Indirect Bilirubin 0.2 mg/dL 08/04/18 09:38 AST 127 units/L (5-40) H 08/04/18 09:38 ALT 40 units/L (7-56) 08/04/18 09:38 Alkaline Phosphatase 262 units/L (35-129) H 08/04/18 09:38 Troponin T 0.079 ng/mL (0.00-0.029) H D 08/03/18 08:20 Total Protein 4.8 g/dL (6.3-8.2) L 08/04/18 09:38 Albumin 2.7 g/dL (3.9-5) L 08/04/18 09:38 Albumin/Globulin Ratio 1.3 % 08/04/18 09:38 Triglycerides 279 mg/dL (2-149) H 08/01/18 16:17 Cholesterol 229 mg/dL (50-199) H 08/01/18 16:17 LDL Cholesterol Direct 154 mg/dL (50-130) H 08/01/18 16:17 HDL Cholesterol 47 mg/dL (40-59) 08/01/18 16:17 Cholesterol/HDL Ratio 4.87 % 08/01/18 16:17 Lipase 43 units/L (13-60) 08/01/18 16:17 Vitamin B12 > 2000 pg/mL (211-911) H 08/04/18 19:36 Folate 8.75 ng/mL (7.3-26.0) 08/04/18 19:36 Urine Color Yellow (Yellow) 08/01/18 17:15 Urine Turbidity Cloudy (Clear) 08/01/18 17:15 Urine pH 5.0 (5.0-7.0) 08/01/18 17:15 Ur Specific [place] 1.021 (1.003-1.030) 08/01/18 17:15 Urine Protein 100 mg/dl mg/dL (Negative) 08/01/18 17:15 Urine Glucose (UA) >=500 mg/dL (Negative) 08/01/18 17:15 Urine Ketones 20 mg/dL (Negative) 08/01/18 17:15 Urine Blood Mod (Negative) 08/01/18 17:15 Urine Nitrite Neg (Negative) 08/01/18 17:15 Urine Bilirubin Neg (Negative) 08/01/18 17:15 Urine Urobilinogen < 2.0 mg/dL (<2.0) 08/01/18 17:15 Ur Leukocyte Esterase Neg (Negative) 08/01/18 17:15 Urine WBC (Auto) 17.0 /HPF (0.0-6.0) H 08/01/18 17:15 Urine RBC (Auto) 4.0 /HPF (0.0-6.0) 08/01/18 17:15 U Epithel Cells (Auto) 23.0 /HPF (0-13.0) H 08/01/18 17:15 Urine Bacteria (Auto) 1+ /HPF (Negative) 08/01/18 17:15 Urine Mucus Few /HPF 08/01/18 17:15 Urine Yeast (Budding) 2+ /HPF 08/01/18 17:15 Urine Creatinine 45.9 mg/dL (0.1-20.0) H 08/01/18 Unknown Urine Sodium 23 mmol/L 08/01/18 Unknown Influenza A (Rapid) Negative (Negative) 08/04/18 05:30 Influenza B (Rapid) Negative (Negative) 08/04/18 05:30 Blood Type O POSITIVE 08/03/18 09:38 Antibody Screen Negative 08/03/18 09:38 Crossmatch See Detail 08/03/18 09:38 Nutrition/Malnutrition Assess - Dietary Evaluation Nutrition/Malnutrition Findings: Nutrition Notes Start: 08/02/18 10:23 Freq: Status: Active Protocol: Document 08/04/18 12:09 CP (Rec: 08/04/18 12:17 CP [id number]) Co-Sign 08/04/18 12:09 LP Nutrition Notes Initial or Follow up Reassessment Current Diagnosis Coronary Artery Disease Diabetes Hypertension Stroke Other Pertinent Diagnosis DKA, GERD Current Diet Consistent CHO, Glucerna TID Labs/Tests Na 135 BUN 34 Cr 2.1 BG 296 Pertinent Medications Reviewed Height 5 ft 4 in Weight 45.359 kg [place] Body Weight (kg) 54.54 BMI 17.2 Intake Prior to Admission Poor Weight Status Underweight Subjective/Other Information Pt reports having a "good" appetite and has been consuming 90% of her meals since her diet has been advanced. Pt consuming her glucerna. Percent of energy/protein needs met: 100%/100% Burn Absent Trauma Absent #1 Nutrition Diagnosis Inadequate oral intake Etiology DKA As Evidenced by Signs and Symptoms Pt meeting 100% of her energy and pro needs Diagnosis Progress(for reassessment Improved documentation) Is patient on ventilator? No Is Patient Ambulatory and/or Out of Bed No REE-([place]-confined to bed) 1280.472 Kcal/Kg value to use for calculation 35 Approximate Energy Requirements Using 1588 kcal/Kg Calculation Used for Recommendations Kcal/kg Additional Notes PRO: 54-91g (1.2-2 g/kg) Fluid: 1mL/hr Nutrition Intervention Change Diet Order: Continue current Add Supplement/Snack (indicate name/kcal Glucerna TID /protein ) Provides kCal: 660 Provides Protein (gm) 30 Goal #1 PO and ONS intake to continue to meet at least 80% of pro and energy needs Anticipated Discharge Needs: Consistent CHO Follow-Up By: 08/08/18 Additional Comments F/U: Stable PO and ONS intakes
[2018-08-07] MEDS: THERAGRAN Tab PO SCH (14:32)
[2018-08-07] MEDS: VITAMIN B-1 PO SCH (14:32)
[2018-08-07] MEDS: FOLVITE PO SCH (14:32)
[2018-08-07] MEDS: LIBRIUM PO SCH (14:33)
[2018-08-07] MEDS: COUMADIN PO SCH (17:17)
[2018-08-07] MEDS: LANTUS SUB-Q SCH (21:54)
[2018-08-08 06:07] LABS: Basophils # (Auto) 0.1 K/mm3 (0.0-0.1); Basophils % (Auto) 0.8 % (0.0-1.8); Eosinophils # (Auto) 0.3 K/mm3 (0.0-0.4); Eosinophils % (Auto) 2.4 % (0.0-4.3); Hematocrit 26.3 % (30.3-42.9); Hemoglobin 8.7 gm/dl (10.1-14.3); Lymphocytes # (Auto) 3.2 K/mm3 (1.2-5.4); Lymphocytes % (Auto) 30.6 % (13.4-35.0); Mean Corpuscular HGB Conc 33 % (30-34); Mean Corpuscular Volume 85 fl (79-97); Monocytes # (Auto) 0.8 K/mm3 (0.0-0.8); Monocytes % (Auto) 7.5 % (0.0-7.3); Platelet Count 266 K/mm3 (140-440); Red Blood Count 3.11 M/mm3 (3.65-5.03); Red Cell Distribution Width 19.7 % (13.2-15.2)
[2018-08-08 06:19] LABS: INR 1.47 (0.87-1.13)
[2018-08-08 06:29] LABS: Calcium 7.3 mg/dL (8.4-10.2)
[2018-08-08] MEDS: D50W (25GM) Syringe IV PRN ×2 (06:43→07:02)
--- NOTE | 2018-08-08 07:55 | Hem/Onc Progress Note ---
Assessment and Plan 1. h/o Elevated INR secondary to Coumadin for mechanical mitral valve. The INR was elevated. The patient received blood transfusion. The patient had hematemesis. GI has been consulted. 2. Anemia, transfusion given. 3. Diabetic ketoacidosis. 4. Admitted for confusion. 5. Treated for sepsis. 6. Renal impairment. 7. Pharmacy will dose the Coumadin at this time INR. We will observe. 8. I will follow the patient during inpatient stay. inr 2.4 - as per pharmacy - vit k was not given - but based on the trend it appears it was given repeat INR - coumadin 5 mg for now - pharmacy will try to call tyshawn to know how many mg coumadin pt is on pt says she took 1 and 1 and half tab a day 08/06/2018 iv heparin - as inr low - pt must have got vit k coumadin - pharmacy to dose s/p egd 08/07 - inr low - iv heparin - d/w RN reg anti Xa level 08/08 - d/w dr caceres - Patient Problems (1) Coagulopathy Current Visit: Yes Status: Acute Subjective Date of service: 08/08/18 Principal diagnosis: [facility] heart valve - anticoag Interval history: on iv heparin Objective - Constitutional Vitals: Last Vital Signs Temp 98.0 F 08/08/18 04:25 Pulse 81 08/08/18 04:25 Resp 18 08/08/18 04:25 BP 142/91 08/08/18 04:25 Pulse Ox 100 08/08/18 04:25 Pain Intensity (0-10): denies any pain General appearance: no acute distress Performance status: 2- selfcare, ambulatory - EENT Eyes: EOM intact ENT: clear oral mucosa Lymph node exam: negative cervical - Neck Neck: normal ROM - Respiratory Respiratory effort: Positive: normal Respiratory: bilateral: CTA - Cardiovascular Heart Sounds: Present: S1 & S2, click ([facility] heart sound) Extremities: No edema - Gastrointestinal General gastrointestinal: Present: soft, non-tender Rectal Exam: deferred - Genitourinary Female genitourinary: Present: deferred - Integumentary Integumentary: warm - Musculoskeletal Musculoskeletal: strength equal bilaterally - Neurologic Neurologic: moves all extremities - Psychiatric Psychiatric: appropriate mood/affect - Labs Lab Results: Laboratory Results - last 24 hr 08/07/18 08/07/18 08/07/18 07:13 07:47 12:02 WBC RBC Hgb Hct MCV MCH MCHC RDW Plt Count Lymph % (Auto) [place] % (Auto) Eos % (Auto) Baso % (Auto) Lymph # [place] # Eos # Baso # Seg Neutrophils % Seg Neutrophils # PT INR Heparin Anti-Xa Level Sodium 137 Potassium 4.9 Chloride 105.5 Carbon Dioxide 18 L Anion Gap 18 BUN 28 H Creatinine 1.6 H Estimated GFR 41 BUN/Creatinine Ratio 18 Glucose 192 H POC Glucose 189 H < 40 L Calcium 6.8 L 08/07/18 08/07/18 08/07/18 12:14 12:27 16:16 WBC RBC Hgb Hct MCV MCH MCHC RDW Plt Count Lymph % (Auto) [place] % (Auto) Eos % (Auto) Baso % (Auto) Lymph # [place] # Eos # Baso # Seg Neutrophils % Seg Neutrophils # PT INR Heparin Anti-Xa Level 0.57 Sodium Potassium Chloride Carbon Dioxide Anion Gap BUN Creatinine Estimated GFR BUN/Creatinine Ratio Glucose 112 H POC Glucose 150 H Calcium 08/07/18 08/07/18 08/08/18 17:21 21:13 05:00 WBC RBC Hgb Hct MCV MCH MCHC RDW Plt Count Lymph % (Auto) [place] % (Auto) Eos % (Auto) Baso % (Auto) Lymph # [place] # Eos # Baso # Seg Neutrophils % Seg Neutrophils # PT INR Heparin Anti-Xa Level Sodium 140 Potassium 4.1 Chloride 108.5 H Carbon Dioxide 20 L Anion Gap 16 BUN 22 H Creatinine 1.7 H Estimated GFR 39 BUN/Creatinine Ratio 13 Glucose 34 L* POC Glucose 312 H 382 H Calcium 7.3 L 08/08/18 08/08/18 08/08/18 05:00 05:00 07:53 WBC 10.6 RBC 3.11 L Hgb 8.7 L Hct 26.3 L MCV 85 MCH 28 MCHC 33 RDW 19.7 H Plt Count 266 Lymph % (Auto) 30.6 [place] % (Auto) 7.5 H Eos % (Auto) 2.4 Baso % (Auto) 0.8 Lymph # 3.2 [place] # 0.8 Eos # 0.3 Baso # 0.1 Seg Neutrophils % 58.7 Seg Neutrophils # 6.2 PT 18.8 H INR 1.47 H Heparin Anti-Xa Level Sodium Potassium Chloride Carbon Dioxide Anion Gap BUN Creatinine Estimated GFR BUN/Creatinine Ratio Glucose POC Glucose 215 H Calcium Medications & Allergies - Medications Allergies/Adverse Reactions: Allergies No Known Allergies Allergy (Verified 12/03/16 23:01) Home Medications: Home Medications Medication Instructions Recorded Confirmed Last Taken Type Metoprolol [Lopressor TAB] 25 mg PO BID #60 tablet 12/29/16 01/29/17 Unknown Rx Famotidine [Pepcid] 20 mg PO DAILY #30 tablet 02/04/17 08/07/18 Unknown Rx Furosemide [Lasix TAB] 40 mg PO 0600,1800 #60 tablet 02/04/17 08/07/18 Unknown Rx Insulin NPH/Regular [NovoLIN 70/30] 18 unit SQ BIDDIAB #1 vial 02/04/17 08/07/18 Unknown Rx Metoprolol [Lopressor TAB] 50 mg PO TID #90 tablet 02/04/17 08/07/18 Unknown Rx Coumadin 08/02/18 Unknown History Active Medications: Generic Name Dose Route Start Last Admin Trade Name Freq PRN Reason Stop Dose Admin Albuterol 2.5 mg 08/01/18 17:42 Proventil IH Q3HRT PRN Shortness Of Breath Dextrose 0 ml 08/01/18 17:42 08/08/18 07:02 D50w (25gm) Syringe IV 50 ml PRN PRN Administration Hypoglycemia Folic Acid 1 mg 08/07/18 12:00 08/07/18 14:32 Folvite PO 1 mg QDAY ULI Administration Hydralazine HCl 10 mg 08/01/18 17:47 Apresoline IV TID PRN Hypertension Sodium Chloride 1,000 mls @ 75 mls/hr 08/04/18 17:00 08/04/18 23:39 Nacl 0.45% 1000 Ml IV 75 mls/hr DIRECT ULI Administration Sodium Chloride 1,000 mls @ 50 mls/hr 08/05/18 11:00 08/05/18 11:19 Nacl 0.9% 1000 Ml IV 50 mls/hr DIRECT ULI Administration Heparin Sodium/Sodium Chloride 25,000 unit in 500 mls @ 14 mls/hr 08/06/18 06:30 08/07/18 19:26 Heparin/ 0.45% Nacl-25,000 Unit/500 Ml IV 850 units/hr TITR ULI 17 mls/hr Administration Protocol 700 UNITS/HR Insulin Glargine 10 units 08/06/18 22:00 08/07/18 21:54 Lantus SUB-Q 10 units QHS ULI Administration Insulin Human Lispro 0 unit 08/03/18 12:00 08/07/18 21:53 Humalog SUB-Q 8 unit ACHS ULI Administration Protocol Loperamide HCl 2 mg 08/06/18 14:19 Imodium PO Q2H PRN Diarrhea Metoprolol Tartrate 25 mg 08/05/18 22:00 08/07/18 21:53 Lopressor PO 25 mg BID ULI Administration Multivitamins 1 each 08/07/18 12:00 08/07/18 14:32 Theragran Tab PO 1 each QDAY ULI Administration Pantoprazole Sodium 40 mg 08/06/18 10:00 08/07/18 10:31 Protonix PO 40 mg DAILY ULI Administration Potassium Phos/Sodium Phos 1 each 08/04/18 14:00 08/07/18 21:54 Phos-Nak PO Not Given Q8HR ULI Sodium Bicarbonate 650 mg 08/04/18 10:00 08/07/18 21:53 Sodium Bicarbonate PO 650 mg BID ULI Administration Sodium Chloride 10 ml 08/01/18 22:00 08/07/18 21:55 Sodium Chloride Flush Syringe 10 Ml IV 10 ml BID ULI Administration Sodium Chloride 10 ml 08/01/18 17:42 Sodium Chloride Flush Syringe 10 Ml IV PRN PRN LINE FLUSH Thiamine HCl 100 mg 08/07/18 12:00 08/07/18 14:32 Vitamin B-1 PO 100 mg QDAY ULI Administration Warfarin Sodium 7.5 mg 08/07/18 17:00 08/07/18 17:17 Coumadin PO 7.5 mg DAILY@1700 ULI Administration Protocol
[2018-08-08] MEDS: PROTONIX PO SCH (09:21)
[2018-08-08] MEDS: THERAGRAN Tab PO SCH (09:21)
[2018-08-08] MEDS: VITAMIN B-1 PO SCH (09:21)
[2018-08-08] MEDS: FOLVITE PO SCH (09:21)
[2018-08-08] MEDS: SODIUM BICARBONATE PO SCH ×2 (09:23→23:13)
--- NOTE | 2018-08-08 09:26 | Progress Note ---
Assessment and Plan Impression * Acute on chronic renal failure * Status post DKA * Metabolic acidosis * Hypertension * History of mitral valve replacement * Cardiomyopathy Recommendations * Renal function is stable . Continue gentle hydration. * Acidosis is also better. Should correct with treatment of DKA * If patient remains acidotic, may need to add oral sodium bicarbonate * Avoid nephrotoxins * Monitor fluid status and electrolytes closely Subjective Date of service: 08/08/18 Principal diagnosis: abn INR -coumadin Interval history: Patient is awake and alert. Feels well at this time. Currently on a heparin drip. Denies any nausea or vomiting. Objective - Vital Signs Vital signs: Vital Signs - 12hr 08/07/18 08/08/18 08/08/18 23:38 04:25 08:22 Temperature 98.9 F 98.0 F 98.6 F Pulse Rate 89 81 79 Respiratory 18 18 16 Rate Blood Pressure 142/92 142/91 143/97 O2 Sat by Pulse 97 100 100 Oximetry - General Appearance General appearance: well-developed, well-nourished, appears stated age EENT: PERRL, mucous membranes moist Neck: no JVD, no thyromegaly, no carotid bruit, supple Respiratory: Present: Clear to Ascultation Cardiology: regular, normal heart rate, S1S2, no murmurs Gastrointestinal: normal, normoactive bowel sounds Integumentary: no rash, other (no edema) - Lab 08/08/18 05:00 08/08/18 05:00 Most recent lab results Calcium 7.3 mg/dL (8.4-10.2) L 08/08/18 05:00 Phosphorus 3.30 mg/dL (2.5-4.5) D 08/04/18 05:31 Magnesium 2.10 mg/dL (1.7-2.3) 08/04/18 05:31 Urine Creatinine 45.9 mg/dL (0.1-20.0) H 08/01/18 Unknown Urine Sodium 23 mmol/L 08/01/18 Unknown Medications & Allergies - Medications Allergies/Adverse Reactions: Allergies No Known Allergies Allergy (Verified 12/03/16 23:01) Home Medications: Home Medications Medication Instructions Recorded Confirmed Last Taken Type Metoprolol [Lopressor TAB] 25 mg PO BID #60 tablet 12/29/16 01/29/17 Unknown Rx Famotidine [Pepcid] 20 mg PO DAILY #30 tablet 02/04/17 08/07/18 Unknown Rx Furosemide [Lasix TAB] 40 mg PO 0600,1800 #60 tablet 02/04/17 08/07/18 Unknown Rx Insulin NPH/Regular [NovoLIN 70/30] 18 unit SQ BIDDIAB #1 vial 02/04/17 08/07/18 Unknown Rx Metoprolol [Lopressor TAB] 50 mg PO TID #90 tablet 02/04/17 08/07/18 Unknown Rx Coumadin 08/02/18 Unknown History Active Medications: Generic Name Dose Route Start Last Admin Trade Name Freq PRN Reason Stop Dose Admin Albuterol 2.5 mg 08/01/18 17:42 Proventil IH Q3HRT PRN Shortness Of Breath Dextrose 0 ml 08/01/18 17:42 08/08/18 07:02 D50w (25gm) Syringe IV 50 ml PRN PRN Administration Hypoglycemia Folic Acid 1 mg 08/07/18 12:00 08/08/18 09:21 Folvite PO 1 mg QDAY ULI Administration Hydralazine HCl 10 mg 08/01/18 17:47 Apresoline IV TID PRN Hypertension Sodium Chloride 1,000 mls @ 75 mls/hr 08/04/18 17:00 08/04/18 23:39 Nacl 0.45% 1000 Ml IV 75 mls/hr DIRECT ULI Administration Sodium Chloride 1,000 mls @ 50 mls/hr 08/05/18 11:00 08/05/18 11:19 Nacl 0.9% 1000 Ml IV 50 mls/hr DIRECT ULI Administration Heparin Sodium/Sodium Chloride 25,000 unit in 500 mls @ 14 mls/hr 08/06/18 06:30 08/07/18 19:26 Heparin/ 0.45% Nacl-25,000 Unit/500 Ml IV 850 units/hr TITR ULI 17 mls/hr Administration Protocol 700 UNITS/HR Insulin Human Lispro 0 unit 08/03/18 12:00 08/07/18 21:53 Humalog SUB-Q 8 unit ACHS ULI Administration Protocol Loperamide HCl 2 mg 08/06/18 14:19 Imodium PO Q2H PRN Diarrhea Metoprolol Tartrate 25 mg 08/05/18 22:00 08/07/18 21:53 Lopressor PO 25 mg BID ULI Administration Multivitamins 1 each 08/07/18 12:00 08/08/18 09:21 Theragran Tab PO 1 each QDAY ULI Administration Pantoprazole Sodium 40 mg 08/06/18 10:00 08/08/18 09:21 Protonix PO 40 mg DAILY ULI Administration Potassium Phos/Sodium Phos 1 each 08/04/18 14:00 08/07/18 21:54 Phos-Nak PO Not Given Q8HR ULI Sodium Bicarbonate 650 mg 08/04/18 10:00 08/08/18 09:23 Sodium Bicarbonate PO 650 mg BID ULI Administration Sodium Chloride 10 ml 08/01/18 22:00 08/07/18 21:55 Sodium Chloride Flush Syringe 10 Ml IV 10 ml BID ULI Administration Sodium Chloride 10 ml 08/01/18 17:42 Sodium Chloride Flush Syringe 10 Ml IV PRN PRN LINE FLUSH Thiamine HCl 100 mg 08/07/18 12:00 08/08/18 09:21 Vitamin B-1 PO 100 mg QDAY ULI Administration Warfarin Sodium 7.5 mg 08/07/18 17:00 08/07/18 17:17 Coumadin PO 7.5 mg DAILY@1700 ULI Administration Protocol
[2018-08-08] MEDS: LOPRESSOR PO SCH ×2 (10:50→23:07)
[2018-08-08] MEDS: SODIUM CHLORIDE FLUSH SYRINGE 10 ML IV SCH ×2 (10:54→23:12)
--- NOTE | 2018-08-08 11:04 | Progress Note ---
Assessment and Plan Currently stable cardiac status. Cont present cardiac regimen. The patient has been seen in conjunction with Dr. Pelletier who agrees with the assessment and plan of care. - Patient Problems (1) DKA (diabetic ketoacidoses) Current Visit: Yes Status: Acute Qualifiers: Diabetes mellitus complication detail: with coma (2) Acute on chronic renal failure Current Visit: Yes Status: Acute (3) Acidosis Current Visit: Yes Status: Acute (4) Hyperkalemia Current Visit: Yes Status: Acute (5) Anemia Current Visit: Yes Status: Acute (6) Coagulopathy Current Visit: Yes Status: Acute (7) Elevated troponin Current Visit: Yes Status: Acute (8) Sepsis Current Visit: Yes Status: Acute Qualifiers: Sepsis type: sepsis due to unspecified organism Qualified Code(s): A41.9 - Sepsis, unspecified organism (9) Altered mental status Current Visit: Yes Status: Acute Qualifiers: Altered mental status type: unspecified Qualified Code(s): R41.82 - Altered mental status, unspecified (10) History of cardiac arrest Current Visit: Yes Status: Chronic (11) Diabetes Current Visit: Yes Status: Chronic (12) Cardiomyopathy Current Visit: Yes Status: Chronic Qualifiers: Cardiomyopathy type: unspecified Qualified Code(s): I42.9 - Cardiomyopathy, unspecified (13) Hypertension Current Visit: Yes Status: Chronic (14) H/O mitral valve replacement with mechanical valve Current Visit: Yes Status: Chronic (15) Medical non-compliance Current Visit: Yes Status: Chronic Subjective Date of service: 08/08/18 Principal diagnosis: abn INR -coumadin Interval history: pt resting in bed, no current cardiac complaints. heparin gtt infusing. Objective Last Vital Signs Temp 98.6 F 08/08/18 08:22 Pulse 79 08/08/18 08:22 Resp 16 08/08/18 08:22 BP 143/97 08/08/18 08:22 Pulse Ox 100 08/08/18 08:22 - Physical Examination General: No Apparent Distress HEENT: Positive: PERRL, Normocephaly, Mucus Membranes Moist Neck: Positive: neck supple, trachea midline Cardiac: Positive: Reg Rate and Rhythm, S1/S2 Lungs: Positive: Decreased Breath Sounds Neuro: Positive: Grossly Intact Abdomen: Positive: Soft. Negative: Tender Skin: Negative: Rash Musculoskeletal: No Pain Extremities: Absent: edema - Labs and Meds Coagulation 03/04/19 Range/Units 05:00 PT 18.8 H (12.2-14.9) Sec. INR 1.47 H (0.87-1.13) CBC 08/08/18 Range/Units 05:00 WBC 10.6 (4.5-11.0) K/mm3 RBC 3.11 L (3.65-5.03) M/mm3 Hgb 8.7 L (10.1-14.3) gm/dl Hct 26.3 L (30.3-42.9) % Plt Count 266 (140-440) K/mm3 Lymph # 3.2 (1.2-5.4) K/mm3 [place] # 0.8 (0.0-0.8) K/mm3 Eos # 0.3 (0.0-0.4) K/mm3 Baso # 0.1 (0.0-0.1) K/mm3 Comprehensive Metabolic Panel 08/07/18 08/08/18 Range/Units 12:27 05:00 Sodium 140 (137-145) mmol/L Potassium 4.1 (3.6-5.0) mmol/L Chloride 108.5 H (98-107) mmol/L Carbon Dioxide 20 L (22-30) mmol/L BUN 22 H (7-17) mg/dL Creatinine 1.7 H (0.7-1.2) mg/dL Glucose 112 H 34 L* (65-100) mg/dL Calcium 7.3 L (8.4-10.2) mg/dL - Imaging and Cardiology EKG: report reviewed Echo: report reviewed (07/2018: EF 40%, mild to mod LVH, LA and RA dilated, mod TR and RI, mechanical valve in mitral position that appears to be functioning properly. 11/2016 showed EF 40-45%, abnormal diastolic function, trace MR, mild TR, RVSP 36mmHg. ) - EKG Sinus rhythms and dysrhythmias: sinus rhythm
[2018-08-08] MEDS: HumaLOG SUB-Q SCH ×4 (13:00→23:11)
[2018-08-08] MEDS: PHOS-NAK PO SCH ×4 (14:55→23:13)
[2018-08-08] MEDS: HEPARIN/ 0.45% NACL-25,000 UNIT/500 ML 25,000 UNIT/500 ML BAG IV SCH (16:47)
--- NOTE | 2018-08-08 17:59 | Progress Note ---
Assessment and Plan Assessment and plan: 48 YO Female with HTN, IA, Cardiac Arrest, CAD, Malnutrition, DM, GERD, Medication Noncompliance presents to ED for evaluation. Pt is confused and lethargic at time of exam and the patient is unable to provide history. History taken from family as ED staff and EMS. As per report, EMS was notified and upon arrival to the patients motel room- the patient was found to be lethargic with decreased responsiveness. Pt transported to [facility] for further care and evaluation. Upon arrival the patient was found to have DKA, Sepsis, Acidosis, ARF, as well as elevated cardiac enzymes. No reports of fever, chills, CP, Palpitations, Syncope, trauma, falls, or loss of consciousness. Pt admitted to ICU and initiated on DKA and Sepsis Protocols respectively. Pulmonary team consulted, as well as Nephrology team for renal failure, and Cardiology team for elevated troponin. Patient received blood transfusion with EGD showing gastritis. She was noted to have elevated INR and Coumadin was held. The patient was also noted to be WITH HNKH And was treated with insuline for better improvement. she is awaiting therapeutic INR due to mechanical valve prior to discharge. Acute on chronic Blood loss Anemia -transfused I unit of prbc -H/H stable, will monitor Suspected Upper GI bleeding -s/p EGD which showed gastritis -continue PPI Severe Coumadin toxicity -resolved DM Insulin dependent s/p DKA -BG stable on current insulin therapy, adjust as needed H/o Mechanical Heart Valve -cont coumadin -INR goal of 2.5-3.5, will monitor Acute delirium, probably 2/2 alcohol withdrawal -on alcohol withdrawal protocol -consider head CT scan if no improvement Acute on CRF with metabolic acidosis -levels improving, will monitor -renal US neg -nephrology on board Elevated troponin, multifactorial susepct 2/2 demand -echo showed EF of 40% with moderate TR and MN -Cardio on board Hx of alcohol abuse -cessation recommended Disp: for d/c when medically stable and INR level is therapeutic History Interval history: Patient seen and examined, Resting well. No new complaints today. Hospitalist Physical - Physical exam Narrative exam: General appearance: Present: no acute distress - EENT Eyes: Present: PERRL, EOM intact ENT: hearing intact, clear oral mucosa - Neck Neck: Present: supple - Respiratory Respiratory effort: normal Respiratory: bilateral: CTA - Cardiovascular Rhythm: regular Heart Sounds: Present: S1 & S2, click present - Extremities Extremity abnormal: edema (in BLE) - Abdominal General gastrointestinal: soft, non-tender, non-distended, normal bowel sounds - Neurologic Neurologic: CNII-XII intact - Constitutional Vitals: Temp Pulse Resp BP Pulse Ox 98.6 F 88 16 135/84 100 08/08/18 08:22 08/08/18 16:40 08/08/18 08:22 08/08/18 16:40 08/08/18 16:40 General appearance: Present: no acute distress Results - Labs CBC & Chem 7: 08/08/18 05:00 08/08/18 05:00 Labs: Laboratory Last Values WBC 10.6 K/mm3 (4.5-11.0) 08/08/18 05:00 RBC 3.11 M/mm3 (3.65-5.03) L 08/08/18 05:00 Hgb 8.7 gm/dl (10.1-14.3) L 08/08/18 05:00 Hct 26.3 % (30.3-42.9) L 08/08/18 05:00 MCV 85 fl (79-97) 08/08/18 05:00 MCH 28 pg (28-32) 08/08/18 05:00 MCHC 33 % (30-34) 08/08/18 05:00 RDW 19.7 % (13.2-15.2) H 08/08/18 05:00 Plt Count 266 K/mm3 (140-440) 08/08/18 05:00 Lymph % (Auto) 30.6 % (13.4-35.0) 08/08/18 05:00 [place] % (Auto) 7.5 % (0.0-7.3) H 08/08/18 05:00 Eos % (Auto) 2.4 % (0.0-4.3) 08/08/18 05:00 Baso % (Auto) 0.8 % (0.0-1.8) 08/08/18 05:00 Lymph # 3.2 K/mm3 (1.2-5.4) 08/08/18 05:00 [place] # 0.8 K/mm3 (0.0-0.8) 08/08/18 05:00 Eos # 0.3 K/mm3 (0.0-0.4) 08/08/18 05:00 Baso # 0.1 K/mm3 (0.0-0.1) 08/08/18 05:00 Add Manual Diff Complete 08/02/18 03:46 Total Counted 100 08/02/18 03:46 Seg Neutrophils % 58.7 % (40.0-70.0) 08/08/18 05:00 Seg Neuts % (Manual) 86.0 % (40.0-70.0) H 08/02/18 03:46 Band Neutrophils % 4.0 % 08/02/18 03:46 Lymphocytes % (Manual) 5.0 % (13.4-35.0) L 08/02/18 03:46 Reactive Lymphs % (Man) 0 % 08/02/18 03:46 Monocytes % (Manual) 5.0 % (0.0-7.3) 08/02/18 03:46 Eosinophils % (Manual) 0 % (0.0-4.3) 08/02/18 03:46 Basophils % (Manual) 0 % (0.0-1.8) 08/02/18 03:46 Metamyelocytes % 0 % 08/02/18 03:46 Myelocytes % 0 % 08/02/18 03:46 Promyelocytes % 0 % 08/02/18 03:46 Blast Cells % 0 % 08/02/18 03:46 Nucleated RBC % Not Reportable 08/02/18 03:46 Seg Neutrophils # 6.2 K/mm3 (1.8-7.7) 08/08/18 05:00 Seg Neutrophils # Man 14.4 K/mm3 (1.8-7.7) H 08/02/18 03:46 Band Neutrophils # 0.7 K/mm3 08/02/18 03:46 Lymphocytes # (Manual) 0.8 K/mm3 (1.2-5.4) L 08/02/18 03:46 Abs React Lymphs (Man) 0.0 K/mm3 08/02/18 03:46 Monocytes # (Manual) 0.8 K/mm3 (0.0-0.8) 08/02/18 03:46 Eosinophils # (Manual) 0.0 K/mm3 (0.0-0.4) 08/02/18 03:46 Basophils # (Manual) 0.0 K/mm3 (0.0-0.1) 08/02/18 03:46 Metamyelocytes # 0.0 K/mm3 08/02/18 03:46 Myelocytes # 0.0 K/mm3 08/02/18 03:46 Promyelocytes # 0.0 K/mm3 08/02/18 03:46 Blast Cells # 0.0 K/mm3 08/02/18 03:46 WBC Morphology Not Reportable 08/02/18 03:46 Hypersegmented Neuts Not Reportable 08/02/18 03:46 Hyposegmented Neuts Not Reportable 08/02/18 03:46 Hypogranular Neuts Not Reportable 08/02/18 03:46 Smudge Cells Not Reportable 08/02/18 03:46 Toxic Granulation Not Reportable 08/02/18 03:46 Toxic Vacuolation Not Reportable 08/02/18 03:46 Dohle Bodies Not Reportable 08/02/18 03:46 Pelger-Huet Anomaly Not Reportable 08/02/18 03:46 Mary Rods Not Reportable 08/02/18 03:46 Platelet Estimate Consistent w auto 08/02/18 03:46 Clumped Platelets Not Reportable 08/02/18 03:46 Plt Clumps, EDTA Not Reportable 08/02/18 03:46 Large Platelets Not Reportable 08/02/18 03:46 Giant Platelets Not Reportable 08/02/18 03:46 Platelet Satelliting Not Reportable 08/02/18 03:46 Plt Morphology Comment Not Reportable 08/02/18 03:46 RBC Morphology Not Reportable 08/02/18 03:46 Dimorphic RBCs Not Reportable 08/02/18 03:46 Polychromasia Not Reportable 08/02/18 03:46 Hypochromasia 1+ 08/02/18 03:46 Poikilocytosis Not Reportable 08/02/18 03:46 Anisocytosis 1+ 08/02/18 03:46 Microcytosis Not Reportable 08/02/18 03:46 Macrocytosis Not Reportable 08/02/18 03:46 Spherocytes Not Reportable 08/02/18 03:46 Pappenheimer Bodies Not Reportable 08/02/18 03:46 Sickle Cells Not Reportable 08/02/18 03:46 Target Cells Not Reportable 08/02/18 03:46 Tear Drop Cells Not Reportable 08/02/18 03:46 Ovalocytes Not Reportable 08/02/18 03:46 Helmet Cells Not Reportable 08/02/18 03:46 [place] Bodies Not Reportable 08/02/18 03:46 Strum Rings Not Reportable 08/02/18 03:46 Premium Cells Not Reportable 08/02/18 03:46 Bite Cells Not Reportable 08/02/18 03:46 Crenated Cell Few 08/02/18 03:46 Elliptocytes Not Reportable 08/02/18 03:46 Acanthocytes (Spur) Not Reportable 08/02/18 03:46 Rouleaux Not Reportable 08/02/18 03:46 Hemoglobin C Crystals Not Reportable 08/02/18 03:46 Schistocytes Not Reportable 08/02/18 03:46 Malaria parasites Not Reportable 08/02/18 03:46 Michael Bodies Not Reportable 08/02/18 03:46 Hem Pathologist Commnt No 08/02/18 03:46 PT 18.8 Sec. (12.2-14.9) H 08/08/18 05:00 INR 1.47 (0.87-1.13) H 08/08/18 05:00 APTT 27.0 Sec. (24.2-36.6) 08/06/18 11:55 Heparin Anti-Xa Level 0.18 U.I./ml (0.3-0.7) L 08/08/18 15:46 VBG pH 6.903 (7.320-7.420) L* 08/01/18 16:17 Sodium 140 mmol/L (137-145) 08/08/18 05:00 Potassium 4.1 mmol/L (3.6-5.0) 08/08/18 05:00 Chloride 108.5 mmol/L (98-107) H 08/08/18 05:00 Carbon Dioxide 20 mmol/L (22-30) L 08/08/18 05:00 Anion Gap 16 mmol/L 08/08/18 05:00 BUN 22 mg/dL (7-17) H 08/08/18 05:00 Creatinine 1.7 mg/dL (0.7-1.2) H 08/08/18 05:00 Estimated GFR 39 ml/min 08/08/18 05:00 BUN/Creatinine Ratio 13 % 08/08/18 05:00 Glucose 34 mg/dL (65-100) L* 08/08/18 05:00 POC Glucose 320 (70-105) H 08/08/18 11:33 Lactic Acid 1.90 mmol/L (0.7-2.0) 08/03/18 09:41 Calcium 7.3 mg/dL (8.4-10.2) L 08/08/18 05:00 Phosphorus 3.30 mg/dL (2.5-4.5) D 08/04/18 05:31 Magnesium 2.10 mg/dL (1.7-2.3) 08/04/18 05:31 Iron 97 ug/dL (37-170) 08/04/18 19:22 TIBC 258 mcg/dL (250-450) 08/04/18 19:22 Ferritin 258.8 ng/mL (13.0-400.0) 08/04/18 19:22 Total Bilirubin 0.40 mg/dL (0.1-1.2) 08/04/18 09:38 Direct Bilirubin < 0.2 mg/dL (0-0.2) 08/04/18 09:38 Indirect Bilirubin 0.2 mg/dL 08/04/18 09:38 AST 127 units/L (5-40) H 08/04/18 09:38 ALT 40 units/L (7-56) 08/04/18 09:38 Alkaline Phosphatase 262 units/L (35-129) H 08/04/18 09:38 Troponin T 0.079 ng/mL (0.00-0.029) H D 08/03/18 08:20 Total Protein 4.8 g/dL (6.3-8.2) L 08/04/18 09:38 Albumin 2.7 g/dL (3.9-5) L 08/04/18 09:38 Albumin/Globulin Ratio 1.3 % 08/04/18 09:38 Triglycerides 279 mg/dL (2-149) H 08/01/18 16:17 Cholesterol 229 mg/dL (50-199) H 08/01/18 16:17 LDL Cholesterol Direct 154 mg/dL (50-130) H 08/01/18 16:17 HDL Cholesterol 47 mg/dL (40-59) 08/01/18 16:17 Cholesterol/HDL Ratio 4.87 % 08/01/18 16:17 Lipase 43 units/L (13-60) 08/01/18 16:17 Vitamin B12 > 2000 pg/mL (211-911) H 08/04/18 19:36 Folate 8.75 ng/mL (7.3-26.0) 08/04/18 19:36 Urine Color Yellow (Yellow) 08/01/18 17:15 Urine Turbidity Cloudy (Clear) 08/01/18 17:15 Urine pH 5.0 (5.0-7.0) 08/01/18 17:15 Ur Specific [place] 1.021 (1.003-1.030) 08/01/18 17:15 Urine Protein 100 mg/dl mg/dL (Negative) 08/01/18 17:15 Urine Glucose (UA) >=500 mg/dL (Negative) 08/01/18 17:15 Urine Ketones 20 mg/dL (Negative) 08/01/18 17:15 Urine Blood Mod (Negative) 08/01/18 17:15 Urine Nitrite Neg (Negative) 08/01/18 17:15 Urine Bilirubin Neg (Negative) 08/01/18 17:15 Urine Urobilinogen < 2.0 mg/dL (<2.0) 08/01/18 17:15 Ur Leukocyte Esterase Neg (Negative) 08/01/18 17:15 Urine WBC (Auto) 17.0 /HPF (0.0-6.0) H 08/01/18 17:15 Urine RBC (Auto) 4.0 /HPF (0.0-6.0) 08/01/18 17:15 U Epithel Cells (Auto) 23.0 /HPF (0-13.0) H 08/01/18 17:15 Urine Bacteria (Auto) 1+ /HPF (Negative) 08/01/18 17:15 Urine Mucus Few /HPF 08/01/18 17:15 Urine Yeast (Budding) 2+ /HPF 08/01/18 17:15 Urine Creatinine 45.9 mg/dL (0.1-20.0) H 08/01/18 Unknown Urine Sodium 23 mmol/L 08/01/18 Unknown Influenza A (Rapid) Negative (Negative) 08/04/18 05:30 Influenza B (Rapid) Negative (Negative) 08/04/18 05:30 Blood Type O POSITIVE 08/03/18 09:38 Antibody Screen Negative 08/03/18 09:38 Crossmatch See Detail 08/03/18 09:38 Nutrition/Malnutrition Assess - Dietary Evaluation Nutrition/Malnutrition Findings: Nutrition Notes Start: 08/02/18 10:23 Freq: Status: Active Protocol: Document 08/08/18 15:29 RM (Rec: 08/08/18 15:39 RM [id number]) Nutrition Notes Initial or Follow up Reassessment Current Diagnosis Coronary Artery Disease Diabetes Hypertension Stroke Other Pertinent Diagnosis DKA, GERD Current Diet Consistent CHO Labs/Tests Reviewed Pertinent Medications Reviewed Height 5 ft 4 in Weight 60.45 kg [place] Body Weight (kg) 54.54 BMI 22.8 Weight change and time frame Current wt likely d/t human error. Pt stated that UBW was 133 lbs 1 week ago. Corrected in record accordingly. Subjective/Other Information Screened for Coumadin/Vit K diet education. Pt stated that her appetite is poor amd that she ate 1/3 of her breakfast. Pt already familiar with Coumadin/Vit K diet education. Percent of energy/protein needs met: 48%/63% Burn Absent Trauma Absent #1 Nutrition Diagnosis Inadequate oral intake As Evidenced by Signs and Symptoms pt meeting 48% of calorie and 63% of protein needs Diagnosis Progress(for reassessment Worsened documentation) Is patient on ventilator? No Is Patient Ambulatory and/or Out of Bed No REE-([facility]-confined to bed) 1461.384 Calculation Used for Recommendations [facility] Additional Notes PRO: 48-60g (0.8-1 g/kg) Fluid: 1mL/hr Nutrition Intervention Change Diet Order: Cardiac/Consistent CHO Add Supplement/Snack (indicate name/kcal [place] BID /protein ) Provides kCal: 850 Provides Protein (gm) 38 Goal #1 Meet at least 75% of calorie and protein needs via PO and ONS intakes Anticipated Discharge Needs: Cardiac/Consistent CHO Follow-Up By: 08/10/18 Additional Comments Follow for PO and ONS intakes - Attestation Statement I have reviewed and agreed w/ Malnutrition eval & tx plan: Yes
[2018-08-08] MEDS: COUMADIN PO SCH (19:28)
[2018-08-09] MEDS: HEPARIN/ 0.45% NACL-25,000 UNIT/500 ML 25,000 UNIT/500 ML BAG IV SCH (05:01)
[2018-08-09] MEDS: PHOS-NAK PO SCH ×3 (05:02→21:52)
[2018-08-09 07:13] LABS: Basophils # (Auto) 0.1 K/mm3 (0.0-0.1); Basophils % (Auto) 0.7 % (0.0-1.8); Eosinophils # (Auto) 0.4 K/mm3 (0.0-0.4); Hematocrit 24.1 % (30.3-42.9); Lymphocytes # (Auto) 2.3 K/mm3 (1.2-5.4); Lymphocytes % (Auto) 24.9 % (13.4-35.0); Mean Corpuscular HGB Conc 33 % (30-34); Mean Corpuscular Volume 85 fl (79-97); Monocytes # (Auto) 1.2 K/mm3 (0.0-0.8); Monocytes % (Auto) 12.6 % (0.0-7.3); Platelet Count 297 K/mm3 (140-440); Red Blood Count 2.82 M/mm3 (3.65-5.03); Red Cell Distribution Width 19.8 % (13.2-15.2)
[2018-08-09 07:24] LABS: INR 1.64 (0.87-1.13)
[2018-08-09 07:39] LABS: Calcium 7.3 mg/dL (8.4-10.2)
--- NOTE | 2018-08-09 07:52 | Hem/Onc Progress Note ---
Assessment and Plan 1. h/o Elevated INR secondary to Coumadin for mechanical mitral valve. The INR was elevated. The patient received blood transfusion. The patient had hematemesis. GI has been consulted. 2. Anemia, transfusion given. 3. Diabetic ketoacidosis. 4. Admitted for confusion. 5. Treated for sepsis. 6. Renal impairment. 7. Pharmacy will dose the Coumadin at this time INR. We will observe. 8. I will follow the patient during inpatient stay. inr 2.4 - as per pharmacy - vit k was not given - but based on the trend it appears it was given repeat INR - coumadin 5 mg for now - pharmacy will try to call tyshawn to know how many mg coumadin pt is on pt says she took 1 and 1 and half tab a day 08/06/2018 iv heparin - as inr low - pt must have got vit k coumadin - pharmacy to dose s/p egd 08/07 - inr low - iv heparin - d/w RN reg anti Xa level 08/08 - d/w dr caceres 08/09 - inr not therapeutic - pharmacy dosing - anemia - s/p transfusion - Patient Problems (1) Coagulopathy Current Visit: Yes Status: Acute Subjective Date of service: 08/09/18 Principal diagnosis: anticoag issues Interval history: no bleeding Objective - Constitutional Vitals: Last Vital Signs Temp 98.0 F 08/09/18 05:04 Pulse 86 08/09/18 05:04 Resp 20 08/09/18 05:04 BP 142/72 08/09/18 05:04 Pulse Ox 99 08/09/18 05:04 Pain Intensity (0-10): denies any pain General appearance: no acute distress Performance status: 2- selfcare, ambulatory - EENT Eyes: EOM intact ENT: clear oral mucosa Lymph node exam: negative cervical - Neck Neck: normal ROM - Respiratory Respiratory effort: Positive: normal Respiratory: bilateral: CTA - Cardiovascular Heart Sounds: Present: S1 & S2, click (mechanica valve sound) Extremities: normal temperature - Gastrointestinal General gastrointestinal: Present: soft Rectal Exam: deferred - Genitourinary Female genitourinary: Present: deferred - Integumentary Integumentary: warm - Musculoskeletal Musculoskeletal: strength equal bilaterally - Neurologic Neurologic: moves all extremities - Labs Lab Results: Laboratory Results - last 24 hr 08/08/18 08/08/18 08/08/18 07:53 11:33 15:46 WBC RBC Hgb Hct MCV MCH MCHC RDW Plt Count Lymph % (Auto) [place] % (Auto) Eos % (Auto) Baso % (Auto) Lymph # [place] # Eos # Baso # Seg Neutrophils % Seg Neutrophils # PT INR Heparin Anti-Xa Level 0.18 L Sodium Potassium Chloride Carbon Dioxide Anion Gap BUN Creatinine Estimated GFR BUN/Creatinine Ratio Glucose POC Glucose 215 H 320 H Calcium 08/08/18 08/08/18 08/08/18 16:43 22:52 23:02 WBC RBC Hgb Hct MCV MCH MCHC RDW Plt Count Lymph % (Auto) [place] % (Auto) Eos % (Auto) Baso % (Auto) Lymph # [place] # Eos # Baso # Seg Neutrophils % Seg Neutrophils # PT INR Heparin Anti-Xa Level 0.24 L Sodium Potassium Chloride Carbon Dioxide Anion Gap BUN Creatinine Estimated GFR BUN/Creatinine Ratio Glucose POC Glucose 244 H 171 H Calcium 08/09/18 08/09/18 08/09/18 05:02 06:11 06:11 WBC 9.4 RBC 2.82 L Hgb 8.0 L Hct 24.1 L MCV 85 MCH 28 MCHC 33 RDW 19.8 H Plt Count 297 Lymph % (Auto) 24.9 [place] % (Auto) 12.6 H Eos % (Auto) 4.0 Baso % (Auto) 0.7 Lymph # 2.3 [place] # 1.2 H Eos # 0.4 Baso # 0.1 Seg Neutrophils % 57.8 Seg Neutrophils # 5.5 PT INR Heparin Anti-Xa Level Sodium 140 Potassium 4.9 Chloride 109.5 H Carbon Dioxide 21 L Anion Gap 14 BUN 19 H Creatinine 1.6 H Estimated GFR 41 BUN/Creatinine Ratio 12 Glucose 181 H POC Glucose 150 H Calcium 7.3 L 08/09/18 06:11 WBC RBC Hgb Hct MCV MCH MCHC RDW Plt Count Lymph % (Auto) [place] % (Auto) Eos % (Auto) Baso % (Auto) Lymph # [place] # Eos # Baso # Seg Neutrophils % Seg Neutrophils # PT 20.5 H INR 1.64 H Heparin Anti-Xa Level 0.41 Sodium Potassium Chloride Carbon Dioxide Anion Gap BUN Creatinine Estimated GFR BUN/Creatinine Ratio Glucose POC Glucose Calcium Medications & Allergies - Medications Allergies/Adverse Reactions: Allergies No Known Allergies Allergy (Verified 12/03/16 23:01) Home Medications: Home Medications Medication Instructions Recorded Confirmed Last Taken Type Metoprolol [Lopressor TAB] 25 mg PO BID #60 tablet 12/29/16 01/29/17 Unknown Rx Famotidine [Pepcid] 20 mg PO DAILY #30 tablet 02/04/17 08/07/18 Unknown Rx Furosemide [Lasix TAB] 40 mg PO 0600,1800 #60 tablet 02/04/17 08/07/18 Unknown Rx Insulin NPH/Regular [NovoLIN 70/30] 18 unit SQ BIDDIAB #1 vial 02/04/17 08/07/18 Unknown Rx Metoprolol [Lopressor TAB] 50 mg PO TID #90 tablet 02/04/17 08/07/18 Unknown Rx Coumadin 08/02/18 Unknown History Active Medications: Generic Name Dose Route Start Last Admin Trade Name Freq PRN Reason Stop Dose Admin Albuterol 2.5 mg 08/01/18 17:42 Proventil IH Q3HRT PRN Shortness Of Breath Dextrose 0 ml 08/01/18 17:42 08/08/18 07:02 D50w (25gm) Syringe IV 50 ml PRN PRN Administration Hypoglycemia Folic Acid 1 mg 08/07/18 12:00 08/08/18 09:21 Folvite PO 1 mg QDAY ULI Administration Hydralazine HCl 10 mg 08/01/18 17:47 Apresoline IV TID PRN Hypertension Heparin Sodium/Sodium Chloride 25,000 unit in 500 mls @ 14 mls/hr 08/06/18 06:30 08/09/18 05:01 Heparin/ 0.45% Nacl-25,000 Unit/500 Ml IV 950 units/hr TITR ULI 19 mls/hr Administration Protocol 700 UNITS/HR Insulin Human Lispro 0 unit 08/03/18 12:00 08/08/18 23:11 Humalog SUB-Q 2 unit ACHS ULI Administration Protocol Loperamide HCl 2 mg 08/06/18 14:19 Imodium PO Q2H PRN Diarrhea Metoprolol Tartrate 25 mg 08/05/18 22:00 08/08/18 23:07 Lopressor PO 25 mg BID ULI Administration Multivitamins 1 each 08/07/18 12:00 08/08/18 09:21 Theragran Tab PO 1 each QDAY ULI Administration Pantoprazole Sodium 40 mg 08/06/18 10:00 08/08/18 09:21 Protonix PO 40 mg DAILY ULI Administration Potassium Phos/Sodium Phos 1 each 08/04/18 14:00 08/09/18 05:02 Phos-Nak PO Not Given Q8HR [facility] Sodium Bicarbonate 650 mg 08/04/18 10:00 08/08/18 23:13 Sodium Bicarbonate PO 650 mg BID ULI Administration Sodium Chloride 10 ml 08/01/18 22:00 08/08/18 23:12 Sodium Chloride Flush Syringe 10 Ml IV 10 ml BID ULI Administration Sodium Chloride 10 ml 08/01/18 17:42 Sodium Chloride Flush Syringe 10 Ml IV PRN PRN LINE FLUSH Thiamine HCl 100 mg 08/07/18 12:00 08/08/18 09:21 Vitamin B-1 PO 100 mg QDAY ULI Administration Warfarin Sodium 7.5 mg 08/07/18 17:00 08/08/18 19:28 Coumadin PO 7.5 mg DAILY@1700 ULI Administration Protocol
--- NOTE | 2018-08-09 09:04 | Progress Note ---
Assessment and Plan Impression * Acute on chronic renal failure * Status post DKA * Metabolic acidosis * Hypertension * History of mitral valve replacement * Cardiomyopathy Recommendations * Renal function is stable . Continue gentle hydration. * Acidosis is improving with treatment of DKA * Avoid nephrotoxins * Monitor fluid status and electrolytes closely * No objection to discharge from renal standpoint Subjective Date of service: 08/09/18 Principal diagnosis: anticoag issues Interval history: Patient is awake and alert. Denies any shortness of breath. No nausea or v omiting. Still on a heparin drip. Objective - Vital Signs Vital signs: Vital Signs - 12hr 08/08/18 08/09/18 08/09/18 22:00 00:01 00:03 Temperature 98.0 F Pulse Rate 83 81 Respiratory 20 18 Rate Blood Pressure 119/72 O2 Sat by Pulse 100 Oximetry 08/09/18 05:04 Temperature 98.0 F Pulse Rate 86 Respiratory 20 Rate Blood Pressure 142/72 O2 Sat by Pulse 99 Oximetry - General Appearance General appearance: well-developed, well-nourished, appears stated age EENT: PERRL, mucous membranes moist Neck: no JVD, no thyromegaly, no carotid bruit, supple Respiratory: Present: Clear to Ascultation Cardiology: regular, normal heart rate, S1S2, no murmurs Gastrointestinal: normal, normoactive bowel sounds Integumentary: no rash, other (no edema) - Lab 08/09/18 06:11 08/09/18 06:11 Most recent lab results Calcium 7.3 mg/dL (8.4-10.2) L 08/09/18 06:11 Phosphorus 3.30 mg/dL (2.5-4.5) D 08/04/18 05:31 Magnesium 2.10 mg/dL (1.7-2.3) 08/04/18 05:31 Urine Creatinine 45.9 mg/dL (0.1-20.0) H 08/01/18 Unknown Urine Sodium 23 mmol/L 08/01/18 Unknown Medications & Allergies - Medications Allergies/Adverse Reactions: Allergies No Known Allergies Allergy (Verified 12/03/16 23:01) Home Medications: Home Medications Medication Instructions Recorded Confirmed Last Taken Type Metoprolol [Lopressor TAB] 25 mg PO BID #60 tablet 12/29/16 01/29/17 Unknown Rx Famotidine [Pepcid] 20 mg PO DAILY #30 tablet 02/04/17 08/07/18 Unknown Rx Furosemide [Lasix TAB] 40 mg PO 0600,1800 #60 tablet 02/04/17 08/07/18 Unknown Rx Insulin NPH/Regular [NovoLIN 70/30] 18 unit SQ BIDDIAB #1 vial 02/04/17 08/07/18 Unknown Rx Metoprolol [Lopressor TAB] 50 mg PO TID #90 tablet 02/04/17 08/07/18 Unknown Rx Coumadin 08/02/18 Unknown History Active Medications: Generic Name Dose Route Start Last Admin Trade Name Freq PRN Reason Stop Dose Admin Albuterol 2.5 mg 08/01/18 17:42 Proventil IH Q3HRT PRN Shortness Of Breath Dextrose 0 ml 08/01/18 17:42 08/08/18 07:02 D50w (25gm) Syringe IV 50 ml PRN PRN Administration Hypoglycemia Folic Acid 1 mg 08/07/18 12:00 08/08/18 09:21 Folvite PO 1 mg QDAY ULI Administration Hydralazine HCl 10 mg 08/01/18 17:47 Apresoline IV TID PRN Hypertension Heparin Sodium/Sodium Chloride 25,000 unit in 500 mls @ 14 mls/hr 08/06/18 06:30 08/09/18 05:01 Heparin/ 0.45% Nacl-25,000 Unit/500 Ml IV 950 units/hr TITR ULI 19 mls/hr Administration Protocol 700 UNITS/HR Insulin Human Lispro 0 unit 08/03/18 12:00 08/08/18 23:11 Humalog SUB-Q 2 unit ACHS ULI Administration Protocol Loperamide HCl 2 mg 08/06/18 14:19 Imodium PO Q2H PRN Diarrhea Metoprolol Tartrate 25 mg 08/05/18 22:00 08/08/18 23:07 Lopressor PO 25 mg BID ULI Administration Multivitamins 1 each 08/07/18 12:00 08/08/18 09:21 Theragran Tab PO 1 each QDAY ULI Administration Pantoprazole Sodium 40 mg 08/06/18 10:00 08/08/18 09:21 Protonix PO 40 mg DAILY ULI Administration Potassium Phos/Sodium Phos 1 each 08/04/18 14:00 08/09/18 05:02 Phos-Nak PO Not Given Q8HR [facility] Sodium Bicarbonate 650 mg 08/04/18 10:00 08/08/18 23:13 Sodium Bicarbonate PO 650 mg BID ULI Administration Sodium Chloride 10 ml 08/01/18 22:00 08/08/18 23:12 Sodium Chloride Flush Syringe 10 Ml IV 10 ml BID ULI Administration Sodium Chloride 10 ml 08/01/18 17:42 Sodium Chloride Flush Syringe 10 Ml IV PRN PRN LINE FLUSH Thiamine HCl 100 mg 08/07/18 12:00 08/08/18 09:21 Vitamin B-1 PO 100 mg QDAY ULI Administration Warfarin Sodium 7.5 mg 08/07/18 17:00 08/08/18 19:28 Coumadin PO 7.5 mg DAILY@1700 ULI Administration Protocol
[2018-08-09] MEDS: HumaLOG SUB-Q SCH ×4 (09:16→23:14)
[2018-08-09] MEDS: VITAMIN B-1 PO SCH (09:19)
[2018-08-09] MEDS: LOPRESSOR PO SCH ×2 (09:19→22:04)
[2018-08-09] MEDS: SODIUM BICARBONATE PO SCH ×2 (09:19→21:51)
[2018-08-09] MEDS: FOLVITE PO SCH (09:19)
[2018-08-09] MEDS: THERAGRAN Tab PO SCH (09:19)
[2018-08-09] MEDS: PROTONIX PO SCH (09:19)
[2018-08-09] MEDS: SODIUM CHLORIDE FLUSH SYRINGE 10 ML IV SCH ×2 (09:19→21:53)
--- NOTE | 2018-08-09 10:11 | Progress Note ---
Assessment and Plan Assessment and plan: 48 YO Female with HTN, LA, Cardiac Arrest, CAD, Malnutrition, DM, GERD, Medication Noncompliance presents to ED for evaluation. Pt is confused and lethargic at time of exam and the patient is unable to provide history. History taken from family as ED staff and EMS. As per report, EMS was notified and upon arrival to the patients motel room- the patient was found to be lethargic with decreased responsiveness. Pt transported to [facility] for further care and evaluation. Upon arrival the patient was found to have DKA, Sepsis, Acidosis, ARF, as well as elevated cardiac enzymes. No reports of fever, chills, CP, Palpitations, Syncope, trauma, falls, or loss of consciousness. Pt admitted to ICU and initiated on DKA and Sepsis Protocols respectively. Pulmonary team consulted, as well as Nephrology team for renal failure, and Cardiology team for elevated troponin. Patient received blood transfusion with EGD showing gastritis. She was noted to have elevated INR and Coumadin was held. The patient was also noted to be WITH HNKH And was treated with insuline for better improvement. she is awaiting therapeutic INR due to mechanical valve prior to discharge. Acute on chronic Blood loss Anemia -transfused I unit of prbc -H/H stable, will monitor Suspected Upper GI bleeding -s/p EGD which showed gastritis -continue PPI Severe Coumadin toxicity -resolved -Discussed with patient patient will also receive extra Coumadin teaching prior to discharge. DM Insulin dependent s/p DKA -BG stable on current insulin therapy, adjust as needed H/o Mechanical Heart Valve -cont coumadin today 1.6 for Coumadin adjustment to 7.5. -INR goal of 2.5-3.5, will monitor Acute delirium, probably 2/2 alcohol withdrawal -on alcohol withdrawal protocol -consider head CT scan if no improvement Acute on CRF with metabolic acidosis -levels improving, will monitor -renal US neg -nephrology on board Elevated troponin, multifactorial susepct 2/2 demand -echo showed EF of 40% with moderate TR and MN -Cardio on board Hx of alcohol abuse -cessation recommended Disp: for d/c when medically stable and INR level is therapeutic On discharge she will continue to follow other [facility]. History Interval history: Patient seen and examined, Resting well. No new complaints today. Wants to go home. States that she's been ambulating room with no dizziness or chest pain. Hospitalist Physical - Physical exam Narrative exam: General appearance: Present: no acute distress - EENT Eyes: Present: PERRL, EOM intact ENT: hearing intact, clear oral mucosa - Neck Neck: Present: supple - Respiratory Respiratory effort: normal Respiratory: bilateral: CTA - Cardiovascular Rhythm: regular Heart Sounds: Present: S1 & S2, click present. Well-healed surgical scar present - Extremities Extremity abnormal: edema (in BLE) - Abdominal General gastrointestinal: soft, non-tender, non-distended, normal bowel sounds - Neurologic Neurologic: CNII-XII intact - Constitutional Vitals: Temp Pulse Resp BP Pulse Ox 98.2 F 82 20 159/85 99 08/09/18 08:24 08/09/18 08:24 08/09/18 08:24 08/09/18 08:24 08/09/18 08:24 General appearance: Present: no acute distress Results - Labs CBC & Chem 7: 08/09/18 06:11 08/09/18 06:11 Labs: Laboratory Last Values WBC 9.4 K/mm3 (4.5-11.0) 08/09/18 06:11 RBC 2.82 M/mm3 (3.65-5.03) L 08/09/18 06:11 Hgb 8.0 gm/dl (10.1-14.3) L 08/09/18 06:11 Hct 24.1 % (30.3-42.9) L 08/09/18 06:11 MCV 85 fl (79-97) 08/09/18 06:11 MCH 28 pg (28-32) 08/09/18 06:11 MCHC 33 % (30-34) 08/09/18 06:11 RDW 19.8 % (13.2-15.2) H 08/09/18 06:11 Plt Count 297 K/mm3 (140-440) 08/09/18 06:11 Lymph % (Auto) 24.9 % (13.4-35.0) 08/09/18 06:11 [place] % (Auto) 12.6 % (0.0-7.3) H 08/09/18 06:11 Eos % (Auto) 4.0 % (0.0-4.3) 08/09/18 06:11 Baso % (Auto) 0.7 % (0.0-1.8) 08/09/18 06:11 Lymph # 2.3 K/mm3 (1.2-5.4) 08/09/18 06:11 [place] # 1.2 K/mm3 (0.0-0.8) H 08/09/18 06:11 Eos # 0.4 K/mm3 (0.0-0.4) 08/09/18 06:11 Baso # 0.1 K/mm3 (0.0-0.1) 08/09/18 06:11 Add Manual Diff Complete 08/02/18 03:46 Total Counted 100 08/02/18 03:46 Seg Neutrophils % 57.8 % (40.0-70.0) 08/09/18 06:11 Seg Neuts % (Manual) 86.0 % (40.0-70.0) H 08/02/18 03:46 Band Neutrophils % 4.0 % 08/02/18 03:46 Lymphocytes % (Manual) 5.0 % (13.4-35.0) L 08/02/18 03:46 Reactive Lymphs % (Man) 0 % 08/02/18 03:46 Monocytes % (Manual) 5.0 % (0.0-7.3) 08/02/18 03:46 Eosinophils % (Manual) 0 % (0.0-4.3) 08/02/18 03:46 Basophils % (Manual) 0 % (0.0-1.8) 08/02/18 03:46 Metamyelocytes % 0 % 08/02/18 03:46 Myelocytes % 0 % 08/02/18 03:46 Promyelocytes % 0 % 08/02/18 03:46 Blast Cells % 0 % 08/02/18 03:46 Nucleated RBC % Not Reportable 08/02/18 03:46 Seg Neutrophils # 5.5 K/mm3 (1.8-7.7) 08/09/18 06:11 Seg Neutrophils # Man 14.4 K/mm3 (1.8-7.7) H 08/02/18 03:46 Band Neutrophils # 0.7 K/mm3 08/02/18 03:46 Lymphocytes # (Manual) 0.8 K/mm3 (1.2-5.4) L 08/02/18 03:46 Abs React Lymphs (Man) 0.0 K/mm3 08/02/18 03:46 Monocytes # (Manual) 0.8 K/mm3 (0.0-0.8) 08/02/18 03:46 Eosinophils # (Manual) 0.0 K/mm3 (0.0-0.4) 08/02/18 03:46 Basophils # (Manual) 0.0 K/mm3 (0.0-0.1) 08/02/18 03:46 Metamyelocytes # 0.0 K/mm3 08/02/18 03:46 Myelocytes # 0.0 K/mm3 08/02/18 03:46 Promyelocytes # 0.0 K/mm3 08/02/18 03:46 Blast Cells # 0.0 K/mm3 08/02/18 03:46 WBC Morphology Not Reportable 08/02/18 03:46 Hypersegmented Neuts Not Reportable 08/02/18 03:46 Hyposegmented Neuts Not Reportable 08/02/18 03:46 Hypogranular Neuts Not Reportable 08/02/18 03:46 Smudge Cells Not Reportable 08/02/18 03:46 Toxic Granulation Not Reportable 08/02/18 03:46 Toxic Vacuolation Not Reportable 08/02/18 03:46 Dohle Bodies Not Reportable 08/02/18 03:46 Pelger-Huet Anomaly Not Reportable 08/02/18 03:46 Mary Rods Not Reportable 08/02/18 03:46 Platelet Estimate Consistent w auto 08/02/18 03:46 Clumped Platelets Not Reportable 08/02/18 03:46 Plt Clumps, EDTA Not Reportable 08/02/18 03:46 Large Platelets Not Reportable 08/02/18 03:46 Giant Platelets Not Reportable 08/02/18 03:46 Platelet Satelliting Not Reportable 08/02/18 03:46 Plt Morphology Comment Not Reportable 08/02/18 03:46 RBC Morphology Not Reportable 08/02/18 03:46 Dimorphic RBCs Not Reportable 08/02/18 03:46 Polychromasia Not Reportable 08/02/18 03:46 Hypochromasia 1+ 08/02/18 03:46 Poikilocytosis Not Reportable 08/02/18 03:46 Anisocytosis 1+ 08/02/18 03:46 Microcytosis Not Reportable 08/02/18 03:46 Macrocytosis Not Reportable 08/02/18 03:46 Spherocytes Not Reportable 08/02/18 03:46 Pappenheimer Bodies Not Reportable 08/02/18 03:46 Sickle Cells Not Reportable 08/02/18 03:46 Target Cells Not Reportable 08/02/18 03:46 Tear Drop Cells Not Reportable 08/02/18 03:46 Ovalocytes Not Reportable 08/02/18 03:46 Helmet Cells Not Reportable 08/02/18 03:46 [place] Bodies Not Reportable 08/02/18 03:46 [place] Rings Not Reportable 08/02/18 03:46 [place] Cells Not Reportable 08/02/18 03:46 Bite Cells Not Reportable 08/02/18 03:46 Crenated Cell Few 08/02/18 03:46 Elliptocytes Not Reportable 08/02/18 03:46 Acanthocytes (Spur) Not Reportable 08/02/18 03:46 Rouleaux Not Reportable 08/02/18 03:46 Hemoglobin C Crystals Not Reportable 08/02/18 03:46 Schistocytes Not Reportable 08/02/18 03:46 Malaria parasites Not Reportable 08/02/18 03:46 Michael Bodies Not Reportable 08/02/18 03:46 Hem Pathologist Commnt No 08/02/18 03:46 PT 20.5 Sec. (12.2-14.9) H 08/09/18 06:11 INR 1.64 (0.87-1.13) H 08/09/18 06:11 APTT 27.0 Sec. (24.2-36.6) 08/06/18 11:55 Heparin Anti-Xa Level 0.41 U.I./ml (0.3-0.7) 08/09/18 06:11 VBG pH 6.903 (7.320-7.420) L* 08/01/18 16:17 Sodium 140 mmol/L (137-145) 08/09/18 06:11 Potassium 4.9 mmol/L (3.6-5.0) 08/09/18 06:11 Chloride 109.5 mmol/L (98-107) H 08/09/18 06:11 Carbon Dioxide 21 mmol/L (22-30) L 08/09/18 06:11 Anion Gap 14 mmol/L 08/09/18 06:11 BUN 19 mg/dL (7-17) H 08/09/18 06:11 Creatinine 1.6 mg/dL (0.7-1.2) H 08/09/18 06:11 Estimated GFR 41 ml/min 08/09/18 06:11 BUN/Creatinine Ratio 12 % 08/09/18 06:11 Glucose 181 mg/dL (65-100) H 08/09/18 06:11 POC Glucose 268 (70-105) H 08/09/18 08:59 Lactic Acid 1.90 mmol/L (0.7-2.0) 08/03/18 09:41 Calcium 7.3 mg/dL (8.4-10.2) L 08/09/18 06:11 Phosphorus 3.30 mg/dL (2.5-4.5) D 08/04/18 05:31 Magnesium 2.10 mg/dL (1.7-2.3) 08/04/18 05:31 Iron 97 ug/dL (37-170) 08/04/18 19:22 TIBC 258 mcg/dL (250-450) 08/04/18 19:22 Ferritin 258.8 ng/mL (13.0-400.0) 08/04/18 19:22 Total Bilirubin 0.40 mg/dL (0.1-1.2) 08/04/18 09:38 Direct Bilirubin < 0.2 mg/dL (0-0.2) 08/04/18 09:38 Indirect Bilirubin 0.2 mg/dL 08/04/18 09:38 AST 127 units/L (5-40) H 08/04/18 09:38 ALT 40 units/L (7-56) 08/04/18 09:38 Alkaline Phosphatase 262 units/L (35-129) H 08/04/18 09:38 Troponin T 0.079 ng/mL (0.00-0.029) H D 08/03/18 08:20 Total Protein 4.8 g/dL (6.3-8.2) L 08/04/18 09:38 Albumin 2.7 g/dL (3.9-5) L 08/04/18 09:38 Albumin/Globulin Ratio 1.3 % 08/04/18 09:38 Triglycerides 279 mg/dL (2-149) H 08/01/18 16:17 Cholesterol 229 mg/dL (50-199) H 08/01/18 16:17 LDL Cholesterol Direct 154 mg/dL (50-130) H 08/01/18 16:17 HDL Cholesterol 47 mg/dL (40-59) 08/01/18 16:17 Cholesterol/HDL Ratio 4.87 % 08/01/18 16:17 Lipase 43 units/L (13-60) 08/01/18 16:17 Vitamin B12 > 2000 pg/mL (211-911) H 08/04/18 19:36 Folate 8.75 ng/mL (7.3-26.0) 08/04/18 19:36 Urine Color Yellow (Yellow) 08/01/18 17:15 Urine Turbidity Cloudy (Clear) 08/01/18 17:15 Urine pH 5.0 (5.0-7.0) 08/01/18 17:15 Ur Specific [place] 1.021 (1.003-1.030) 08/01/18 17:15 Urine Protein 100 mg/dl mg/dL (Negative) 08/01/18 17:15 Urine Glucose (UA) >=500 mg/dL (Negative) 08/01/18 17:15 Urine Ketones 20 mg/dL (Negative) 08/01/18 17:15 Urine Blood Mod (Negative) 08/01/18 17:15 Urine Nitrite Neg (Negative) 08/01/18 17:15 Urine Bilirubin Neg (Negative) 08/01/18 17:15 Urine Urobilinogen < 2.0 mg/dL (<2.0) 08/01/18 17:15 Ur Leukocyte Esterase Neg (Negative) 08/01/18 17:15 Urine WBC (Auto) 17.0 /HPF (0.0-6.0) H 08/01/18 17:15 Urine RBC (Auto) 4.0 /HPF (0.0-6.0) 08/01/18 17:15 U Epithel Cells (Auto) 23.0 /HPF (0-13.0) H 08/01/18 17:15 Urine Bacteria (Auto) 1+ /HPF (Negative) 08/01/18 17:15 Urine Mucus Few /HPF 08/01/18 17:15 Urine Yeast (Budding) 2+ /HPF 08/01/18 17:15 Urine Creatinine 45.9 mg/dL (0.1-20.0) H 08/01/18 Unknown Urine Sodium 23 mmol/L 08/01/18 Unknown Influenza A (Rapid) Negative (Negative) 08/04/18 05:30 Influenza B (Rapid) Negative (Negative) 08/04/18 05:30 Blood Type O POSITIVE 08/03/18 09:38 Antibody Screen Negative 08/03/18 09:38 Crossmatch See Detail 08/03/18 09:38 Nutrition/Malnutrition Assess - Dietary Evaluation Nutrition/Malnutrition Findings: Nutrition Notes Start: 08/02/18 10:23 Freq: Status: Active Protocol: Document 08/08/18 15:29 RM (Rec: 08/08/18 15:39 RM [id number]) Nutrition Notes Initial or Follow up Reassessment Current Diagnosis Coronary Artery Disease Diabetes Hypertension Stroke Other Pertinent Diagnosis DKA, GERD Current Diet Consistent CHO Labs/Tests Reviewed Pertinent Medications Reviewed Height 5 ft 4 in Weight 60.45 kg [place] Body Weight (kg) 54.54 BMI 22.8 Weight change and time frame Current wt likely d/t human error. Pt stated that UBW was 133 lbs 1 week ago. Corrected in record accordingly. Subjective/Other Information Screened for Coumadin/Vit K diet education. Pt stated that her appetite is poor amd that she ate 1/3 of her breakfast. Pt already familiar with Coumadin/Vit K diet education. Percent of energy/protein needs met: 48%/63% Burn Absent Trauma Absent #1 Nutrition Diagnosis Inadequate oral intake As Evidenced by Signs and Symptoms pt meeting 48% of calorie and 63% of protein needs Diagnosis Progress(for reassessment Worsened documentation) Is patient on ventilator? No Is Patient Ambulatory and/or Out of Bed No REE-([facility]-confined to bed) [phone] Calculation Used for Recommendations [facility] Additional Notes PRO: 48-60g (0.8-1 g/kg) Fluid: 1mL/hr Nutrition Intervention Change Diet Order: Cardiac/Consistent CHO Add Supplement/Snack (indicate name/kcal [place] BID /protein ) Provides kCal: 850 Provides Protein (gm) 38 Goal #1 Meet at least 75% of calorie and protein needs via PO and ONS intakes Anticipated Discharge Needs: Cardiac/Consistent CHO Follow-Up By: 08/10/18 Additional Comments Follow for PO and ONS intakes
--- NOTE | 2018-08-09 13:18 | Progress Note ---
Assessment and Plan Currently stable cardiac status. Cont present cardiac regimen. Pt may discharge home from cardiology standpoint once INR is therapeutic. Nothing further to add from cardiac perspective at this time. Will sign off. Recommend pt follow up with [place] cardiology within 1-2 weeks of hospital discharge. The patient has been seen in conjunction with Dr. Pelletier who agrees with the assessment and plan of care. - Patient Problems (1) DKA (diabetic ketoacidoses) Current Visit: Yes Status: Acute Qualifiers: Diabetes mellitus complication detail: with coma (2) Acute on chronic renal failure Current Visit: Yes Status: Acute (3) Acidosis Current Visit: Yes Status: Acute (4) Hyperkalemia Current Visit: Yes Status: Acute (5) Anemia Current Visit: Yes Status: Acute (6) Coagulopathy Current Visit: Yes Status: Acute (7) Elevated troponin Current Visit: Yes Status: Acute (8) Sepsis Current Visit: Yes Status: Acute Qualifiers: Sepsis type: sepsis due to unspecified organism Qualified Code(s): A41.9 - Sepsis, unspecified organism (9) Altered mental status Current Visit: Yes Status: Acute Qualifiers: Altered mental status type: unspecified Qualified Code(s): R41.82 - Altered mental status, unspecified (10) History of cardiac arrest Current Visit: Yes Status: Chronic (11) Diabetes Current Visit: Yes Status: Chronic (12) Cardiomyopathy Current Visit: Yes Status: Chronic Qualifiers: Cardiomyopathy type: unspecified Qualified Code(s): I42.9 - Cardiomyopathy, unspecified (13) Hypertension Current Visit: Yes Status: Chronic (14) H/O mitral valve replacement with mechanical valve Current Visit: Yes Status: Chronic (15) Medical non-compliance Current Visit: Yes Status: Chronic Subjective Date of service: 08/09/18 Principal diagnosis: anticoag issues Interval history: pt resting in bed, no current cardiac complaints. heparin gtt infusing. Objective Last Vital Signs Temp 98.7 F 08/09/18 12:13 Pulse 84 08/09/18 12:13 Resp 20 08/09/18 12:13 BP 143/89 08/09/18 12:13 Pulse Ox 100 08/09/18 12:13 - Physical Examination General: No Apparent Distress HEENT: Positive: PERRL, Normocephaly, Mucus Membranes Moist Neck: Positive: neck supple, trachea midline Cardiac: Positive: Reg Rate and Rhythm, S1/S2 Lungs: Positive: Decreased Breath Sounds Neuro: Positive: Grossly Intact Abdomen: Positive: Soft. Negative: Tender Skin: Negative: Rash Musculoskeletal: No Pain Extremities: Absent: edema - Labs and Meds Coagulation 08/09/18 Range/Units 06:11 PT 20.5 H (12.2-14.9) Sec. INR 1.64 H (0.87-1.13) CBC 08/09/18 Range/Units 06:11 WBC 9.4 (4.5-11.0) K/mm3 RBC 2.82 L (3.65-5.03) M/mm3 Hgb 8.0 L (10.1-14.3) gm/dl Hct 24.1 L (30.3-42.9) % Plt Count 297 (140-440) K/mm3 Lymph # 2.3 (1.2-5.4) K/mm3 [place] # 1.2 H (0.0-0.8) K/mm3 Eos # 0.4 (0.0-0.4) K/mm3 Baso # 0.1 (0.0-0.1) K/mm3 Comprehensive Metabolic Panel 08/09/18 Range/Units 06:11 Sodium 140 (137-145) mmol/L Potassium 4.9 (3.6-5.0) mmol/L Chloride 109.5 H (98-107) mmol/L Carbon Dioxide 21 L (22-30) mmol/L BUN 19 H (7-17) mg/dL Creatinine 1.6 H (0.7-1.2) mg/dL Glucose 181 H (65-100) mg/dL Calcium 7.3 L (8.4-10.2) mg/dL - Imaging and Cardiology EKG: report reviewed Echo: report reviewed (07/2018: EF 40%, mild to mod LVH, LA and RA dilated, mod TR and [place], mechanical valve in mitral position that appears to be functioning properly. 11/2016 showed EF 40-45%, abnormal diastolic function, trace MR, mild TR, RVSP 36mmHg. ) - EKG Sinus rhythms and dysrhythmias: sinus rhythm
[2018-08-09] MEDS: COUMADIN PO SCH (17:43)
[2018-08-09] MEDS ORDERED: AMBIEN PO ONE (23:30)
[2018-08-10 07:27] LABS: Hematocrit 25.8 % (30.3-42.9); Mean Corpuscular HGB Conc 31 % (30-34); Mean Corpuscular Volume 86 fl (79-97); Platelet Count 345 K/mm3 (140-440); Red Blood Count 2.99 M/mm3 (3.65-5.03); Red Cell Distribution Width 20.2 % (13.2-15.2)
[2018-08-10] MEDS: PHOS-NAK PO SCH (07:41)
[2018-08-10 07:47] LABS: INR 1.86 (0.87-1.13)
[2018-08-10 08:42] LABS: Calcium 7.7 mg/dL (8.4-10.2)
--- NOTE | 2018-08-10 08:48 | Progress Note ---
Assessment and Plan Assessment and plan: 48 YO Female with HTN, UT, Cardiac Arrest, CAD, Malnutrition, DM, GERD, Medication Noncompliance presents to ED for evaluation. Pt is confused and lethargic at time of exam and the patient is unable to provide history. History taken from family as ED staff and EMS. As per report, EMS was notified and upon arrival to the patients motel room- the patient was found to be lethargic with decreased responsiveness. Pt transported to [facility] for further care and evaluation. Upon arrival the patient was found to have DKA, Sepsis, Acidosis, ARF, as well as elevated cardiac enzymes. No reports of fever, chills, CP, Palpitations, Syncope, trauma, falls, or loss of consciousness. Pt admitted to ICU and initiated on DKA and Sepsis Protocols respectively. Pulmonary team consulted, as well as Nephrology team for renal failure, and Cardiology team for elevated troponin. Patient received blood transfusion with EGD showing gastritis. She was noted to have elevated INR and Coumadin was held. The patient was also noted to be WITH HNKH And was treated with insuline for better improvement. she is awaiting therapeutic INR due to mechanical valve prior to discharge. Per information obtained from Pharmacy from [facility]. Patient was noted to have an INR of 2.6 at [facility] during her last visit. she was increased to 7.5mg MWF and 5MG TUTHSATSUN to get slightly higer (am unsure what the previous dose was) Her last visit at [facility] was Jul. We were also informed that the patient appeared to have started on some type of self prescribed supplement that potentiates the effects of warfarin. Counselling has been provided to her about this. Acute on chronic Blood loss Anemia -transfused I unit of prbc -H/H stable, will monitor Suspected Upper GI bleeding -s/p EGD which showed gastritis -continue PPI Severe Coumadin toxicity -resolved -Discussed with patient patient will also receive extra Coumadin teaching prior to discharge. DM Insulin dependent s/p DKA -BG stable on current insulin therapy, adjust as needed H/o Mechanical Heart Valve -cont coumadin today 1.84 for Coumadin at 7.5. -INR goal of 2.5-3.5, will monitor - Acute delirium, probably 2/2 alcohol withdrawal -on alcohol withdrawal protocol -consider head CT scan if no improvement Acute on CRF with metabolic acidosis -levels improving, will monitor -renal US neg -nephrology on board Elevated troponin, multifactorial susepct 2/2 demand -echo showed EF of 40% with moderate TR and CA -Cardio on board Hx of alcohol abuse -cessation recommended Disp: for d/c when medically stable and INR level is therapeutic On discharge she will continue to follow other [facility]. History Interval history: Patient seen and examined, Resting well. No new complaints today. States that she's been ambulating room with no dizziness or chest pain. Hospitalist Physical - Physical exam Narrative exam: General appearance: Present: no acute distress - EENT Eyes: Present: PERRL, EOM intact ENT: hearing intact, clear oral mucosa - Neck Neck: Present: supple - Respiratory Respiratory effort: normal Respiratory: bilateral: CTA - Cardiovascular Rhythm: regular Heart Sounds: Present: S1 & S2, click present. Well-healed surgical scar present - Extremities Extremity abnormal: edema (in BLE) - Abdominal General gastrointestinal: soft, non-tender, non-distended, normal bowel sounds - Neurologic Neurologic: CNII-XII intact - Constitutional Vitals: Temp Pulse Resp BP Pulse Ox 98.9 F 89 18 165/85 99 08/10/18 08:10 08/10/18 03:34 08/10/18 08:10 08/10/18 08:10 08/10/18 03:34 General appearance: Present: no acute distress Results - Labs CBC & Chem 7: 08/10/18 04:00 08/10/18 05:45 Labs: Laboratory Last Values WBC 7.5 K/mm3 (4.5-11.0) 08/10/18 04:00 RBC 2.99 M/mm3 (3.65-5.03) L 08/10/18 04:00 Hgb 8.0 gm/dl (10.1-14.3) L 08/10/18 04:00 Hct 25.8 % (30.3-42.9) L 08/10/18 04:00 MCV 86 fl (79-97) 08/10/18 04:00 MCH 27 pg (28-32) L 08/10/18 04:00 MCHC 31 % (30-34) 08/10/18 04:00 RDW 20.2 % (13.2-15.2) H 08/10/18 04:00 Plt Count 345 K/mm3 (140-440) 08/10/18 04:00 Lymph % (Auto) 24.9 % (13.4-35.0) 08/09/18 06:11 Beckham % (Auto) 12.6 % (0.0-7.3) H 08/09/18 06:11 Eos % (Auto) 4.0 % (0.0-4.3) 08/09/18 06:11 Baso % (Auto) 0.7 % (0.0-1.8) 08/09/18 06:11 Lymph # 2.3 K/mm3 (1.2-5.4) 08/09/18 06:11 Beckham # 1.2 K/mm3 (0.0-0.8) H 08/09/18 06:11 Eos # 0.4 K/mm3 (0.0-0.4) 08/09/18 06:11 Baso # 0.1 K/mm3 (0.0-0.1) 08/09/18 06:11 Add Manual Diff Complete 08/02/18 03:46 Total Counted 100 08/02/18 03:46 Seg Neutrophils % 57.8 % (40.0-70.0) 08/09/18 06:11 Seg Neuts % (Manual) 86.0 % (40.0-70.0) H 08/02/18 03:46 Band Neutrophils % 4.0 % 08/02/18 03:46 Lymphocytes % (Manual) 5.0 % (13.4-35.0) L 08/02/18 03:46 Reactive Lymphs % (Man) 0 % 08/02/18 03:46 Monocytes % (Manual) 5.0 % (0.0-7.3) 08/02/18 03:46 Eosinophils % (Manual) 0 % (0.0-4.3) 08/02/18 03:46 Basophils % (Manual) 0 % (0.0-1.8) 08/02/18 03:46 Metamyelocytes % 0 % 08/02/18 03:46 Myelocytes % 0 % 08/02/18 03:46 Promyelocytes % 0 % 08/02/18 03:46 Blast Cells % 0 % 08/02/18 03:46 Nucleated RBC % Not Reportable 08/02/18 03:46 Seg Neutrophils # 5.5 K/mm3 (1.8-7.7) 08/09/18 06:11 Seg Neutrophils # Man 14.4 K/mm3 (1.8-7.7) H 08/02/18 03:46 Band Neutrophils # 0.7 K/mm3 08/02/18 03:46 Lymphocytes # (Manual) 0.8 K/mm3 (1.2-5.4) L 08/02/18 03:46 Abs React Lymphs (Man) 0.0 K/mm3 08/02/18 03:46 Monocytes # (Manual) 0.8 K/mm3 (0.0-0.8) 08/02/18 03:46 Eosinophils # (Manual) 0.0 K/mm3 (0.0-0.4) 08/02/18 03:46 Basophils # (Manual) 0.0 K/mm3 (0.0-0.1) 08/02/18 03:46 Metamyelocytes # 0.0 K/mm3 08/02/18 03:46 Myelocytes # 0.0 K/mm3 08/02/18 03:46 Promyelocytes # 0.0 K/mm3 08/02/18 03:46 Blast Cells # 0.0 K/mm3 08/02/18 03:46 WBC Morphology Not Reportable 08/02/18 03:46 Hypersegmented Neuts Not Reportable 08/02/18 03:46 Hyposegmented Neuts Not Reportable 08/02/18 03:46 Hypogranular Neuts Not Reportable 08/02/18 03:46 Smudge Cells Not Reportable 08/02/18 03:46 Toxic Granulation Not Reportable 08/02/18 03:46 Toxic Vacuolation Not Reportable 08/02/18 03:46 Dohle Bodies Not Reportable 08/02/18 03:46 Pelger-Huet Anomaly Not Reportable 08/02/18 03:46 Mary Rods Not Reportable 08/02/18 03:46 Platelet Estimate Consistent w auto 08/02/18 03:46 Clumped Platelets Not Reportable 08/02/18 03:46 Plt Clumps, EDTA Not Reportable 08/02/18 03:46 Large Platelets Not Reportable 08/02/18 03:46 Giant Platelets Not Reportable 08/02/18 03:46 Platelet Satelliting Not Reportable 08/02/18 03:46 Plt Morphology Comment Not Reportable 08/02/18 03:46 RBC Morphology Not Reportable 08/02/18 03:46 Dimorphic RBCs Not Reportable 08/02/18 03:46 Polychromasia Not Reportable 08/02/18 03:46 Hypochromasia 1+ 08/02/18 03:46 Poikilocytosis Not Reportable 08/02/18 03:46 Anisocytosis 1+ 08/02/18 03:46 Microcytosis Not Reportable 08/02/18 03:46 Macrocytosis Not Reportable 08/02/18 03:46 Spherocytes Not Reportable 08/02/18 03:46 Pappenheimer Bodies Not Reportable 08/02/18 03:46 Sickle Cells Not Reportable 08/02/18 03:46 Target Cells Not Reportable 08/02/18 03:46 Tear Drop Cells Not Reportable 08/02/18 03:46 Ovalocytes Not Reportable 08/02/18 03:46 Helmet Cells Not Reportable 08/02/18 03:46 [place] Bodies Not Reportable 08/02/18 03:46 [place] Rings Not Reportable 08/02/18 03:46 [place] Cells Not Reportable 08/02/18 03:46 Bite Cells Not Reportable 08/02/18 03:46 Crenated Cell Few 08/02/18 03:46 Elliptocytes Not Reportable 08/02/18 03:46 Acanthocytes (Spur) Not Reportable 08/02/18 03:46 Rouleaux Not Reportable 08/02/18 03:46 Hemoglobin C Crystals Not Reportable 08/02/18 03:46 Schistocytes Not Reportable 08/02/18 03:46 Malaria parasites Not Reportable 08/02/18 03:46 Michael Bodies Not Reportable 08/02/18 03:46 Hem Pathologist Commnt No 08/02/18 03:46 PT 22.7 Sec. (12.2-14.9) H 08/10/18 05:00 INR 1.86 (0.87-1.13) H 08/10/18 05:00 APTT 27.0 Sec. (24.2-36.6) 08/06/18 11:55 Heparin Anti-Xa Level 0.41 U.I./ml (0.3-0.7) 08/09/18 06:11 VBG pH 6.903 (7.320-7.420) L* 08/01/18 16:17 Sodium 133 mmol/L (137-145) L 08/10/18 05:45 Potassium 4.9 mmol/L (3.6-5.0) 08/09/18 06:11 Chloride 104.4 mmol/L (98-107) 08/10/18 05:45 Carbon Dioxide 17 mmol/L (22-30) L 08/10/18 05:45 Anion Gap 18 mmol/L 08/10/18 05:45 BUN 25 mg/dL (7-17) H 08/10/18 05:45 Creatinine 1.6 mg/dL (0.7-1.2) H 08/10/18 05:45 Estimated GFR 41 ml/min 08/10/18 05:45 BUN/Creatinine Ratio 16 % 08/10/18 05:45 Glucose 358 mg/dL (65-100) H 08/10/18 05:45 POC Glucose 379 (70-105) H 08/10/18 07:53 Lactic Acid 1.90 mmol/L (0.7-2.0) 08/03/18 09:41 Calcium 7.7 mg/dL (8.4-10.2) L 08/10/18 05:45 Phosphorus 3.30 mg/dL (2.5-4.5) D 08/04/18 05:31 Magnesium 2.10 mg/dL (1.7-2.3) 08/04/18 05:31 Iron 97 ug/dL (37-170) 08/04/18 19:22 TIBC 258 mcg/dL (250-450) 08/04/18 19:22 Ferritin 258.8 ng/mL (13.0-400.0) 08/04/18 19:22 Total Bilirubin 0.40 mg/dL (0.1-1.2) 08/04/18 09:38 Direct Bilirubin < 0.2 mg/dL (0-0.2) 08/04/18 09:38 Indirect Bilirubin 0.2 mg/dL 08/04/18 09:38 AST 127 units/L (5-40) H 08/04/18 09:38 ALT 40 units/L (7-56) 08/04/18 09:38 Alkaline Phosphatase 262 units/L (35-129) H 08/04/18 09:38 Troponin T 0.079 ng/mL (0.00-0.029) H D 08/03/18 08:20 Total Protein 4.8 g/dL (6.3-8.2) L 08/04/18 09:38 Albumin 2.7 g/dL (3.9-5) L 08/04/18 09:38 Albumin/Globulin Ratio 1.3 % 08/04/18 09:38 Triglycerides 279 mg/dL (2-149) H 08/01/18 16:17 Cholesterol 229 mg/dL (50-199) H 08/01/18 16:17 LDL Cholesterol Direct 154 mg/dL (50-130) H 08/01/18 16:17 HDL Cholesterol 47 mg/dL (40-59) 08/01/18 16:17 Cholesterol/HDL Ratio 4.87 % 08/01/18 16:17 Lipase 43 units/L (13-60) 08/01/18 16:17 Vitamin B12 > 2000 pg/mL (211-911) H 08/04/18 19:36 Folate 8.75 ng/mL (7.3-26.0) 08/04/18 19:36 Urine Color Yellow (Yellow) 08/01/18 17:15 Urine Turbidity Cloudy (Clear) 08/01/18 17:15 Urine pH 5.0 (5.0-7.0) 08/01/18 17:15 Ur Specific [place] 1.021 (1.003-1.030) 08/01/18 17:15 Urine Protein 100 mg/dl mg/dL (Negative) 08/01/18 17:15 Urine Glucose (UA) >=500 mg/dL (Negative) 08/01/18 17:15 Urine Ketones 20 mg/dL (Negative) 08/01/18 17:15 Urine Blood Mod (Negative) 08/01/18 17:15 Urine Nitrite Neg (Negative) 08/01/18 17:15 Urine Bilirubin Neg (Negative) 08/01/18 17:15 Urine Urobilinogen < 2.0 mg/dL (<2.0) 08/01/18 17:15 Ur Leukocyte Esterase Neg (Negative) 08/01/18 17:15 Urine WBC (Auto) 17.0 /HPF (0.0-6.0) H 08/01/18 17:15 Urine RBC (Auto) 4.0 /HPF (0.0-6.0) 08/01/18 17:15 U Epithel Cells (Auto) 23.0 /HPF (0-13.0) H 08/01/18 17:15 Urine Bacteria (Auto) 1+ /HPF (Negative) 08/01/18 17:15 Urine Mucus Few /HPF 08/01/18 17:15 Urine Yeast (Budding) 2+ /HPF 08/01/18 17:15 Urine Creatinine 45.9 mg/dL (0.1-20.0) H 08/01/18 Unknown Urine Sodium 23 mmol/L 08/01/18 Unknown Influenza A (Rapid) Negative (Negative) 08/04/18 05:30 Influenza B (Rapid) Negative (Negative) 08/04/18 05:30 Blood Type O POSITIVE 08/03/18 09:38 Antibody Screen Negative 08/03/18 09:38 Crossmatch See Detail 08/03/18 09:38 Nutrition/Malnutrition Assess - Dietary Evaluation Nutrition/Malnutrition Findings: Nutrition Notes Start: 08/02/18 10:23 Freq: Status: Active Protocol: Document 08/08/18 15:29 RM (Rec: 08/08/18 15:39 RM [id number]) Nutrition Notes Initial or Follow up Reassessment Current Diagnosis Coronary Artery Disease, Diabetes,Hypertension,Stroke Other Pertinent Diagnosis DKA, GERD Current Diet Consistent CHO Labs/Tests Reviewed Pertinent Medications Reviewed Height 5 ft 4 in Weight 60.45 kg Topmost Body Weight (kg) 54.54 BMI 22.8 Weight change and time frame Current wt likely d/t human error. Pt stated that UBW was 133 lbs 1 week ago. Corrected in record accordingly. Subjective/Other Information Screened for Coumadin/Vit K diet education. Pt stated that her appetite is poor amd that she ate 1/3 of her breakfast. Pt already familiar with Coumadin/Vit K diet education. Percent of energy/protein needs met: 48%/63% Burn Absent Trauma Absent #1 Nutrition Diagnosis Inadequate oral intake As Evidenced by Signs and Symptoms pt meeting 48% of calorie and 63% of protein needs Diagnosis Progress(for reassessment Worsened documentation) Is patient on ventilator? No Is Patient Ambulatory and/or Out of Bed No REE-(Majestic-St. Jeor-confined to bed) 1461.848 Calculation Used for Recommendations Majestic-St or Additional Notes PRO: 48-60g (0.8-1 g/kg) Fluid: 1mL/hr Nutrition Intervention Change Diet Order: Cardiac/Consistent CHO Add Supplement/Snack (indicate name/kcal Nepro BID /protein ) Provides kCal: 850 Provides Protein (gm) 38 Goal #1 Meet at least 75% of calorie and protein needs via PO and ONS intakes Anticipated Discharge Needs: Cardiac/Consistent CHO Follow-Up By: 08/10/18 Additional Comments Follow for PO and ONS intakes
--- NOTE | 2018-08-10 08:53 | Hem/Onc Progress Note ---
Assessment and Plan 1. h/o Elevated INR secondary to Coumadin for mechanical mitral valve. The INR was elevated. The patient received blood transfusion. The patient had hematemesis. GI has been consulted. 2. Anemia, transfusion given. 3. Diabetic ketoacidosis. 4. Admitted for confusion. 5. Treated for sepsis. 6. Renal impairment. 7. Pharmacy will dose the Coumadin at this time INR. We will observe. 8. I will follow the patient during inpatient stay. inr 2.4 - as per pharmacy - vit k was not given - but based on the trend it appears it was given repeat INR - coumadin 5 mg for now - pharmacy will try to call tyshawn to know how many mg coumadin pt is on pt says she took 1 and 1 and half tab a day 08/06/2018 iv heparin - as inr low - pt must have got vit k coumadin - pharmacy to dose s/p egd 08/07 - inr low - iv heparin - d/w RN reg anti Xa level 08/08 - d/w dr caceres 08/09 - inr not therapeutic - pharmacy dosing - anemia - s/p transfusion 08/10 - inr - 1.8- d/w dr caceres - Patient Problems (1) Coagulopathy Current Visit: Yes Status: Acute Subjective Date of service: 08/10/18 Principal diagnosis: anticoagulation Interval history: no bleeding - inr not therapeutic Objective - Constitutional Vitals: Last Vital Signs Temp 98.9 F 08/10/18 08:10 Pulse 89 08/10/18 03:34 Resp 18 08/10/18 08:10 BP 165/85 08/10/18 08:10 Pulse Ox 99 08/10/18 03:34 Pain Intensity (0-10): denies any pain General appearance: no acute distress Performance status: 2- selfcare, ambulatory - EENT Eyes: EOM intact ENT: clear oral mucosa Lymph node exam: negative cervical - Neck Neck: normal ROM - Respiratory Respiratory effort: Positive: normal Respiratory: bilateral: CTA - Cardiovascular Heart Sounds: Present: S1 & S2, click (mech valve) Extremities: No edema - Gastrointestinal General gastrointestinal: Present: soft, non-tender Rectal Exam: deferred - Genitourinary Female genitourinary: Present: deferred - Integumentary Integumentary: warm - Musculoskeletal Musculoskeletal: strength equal bilaterally - Neurologic Neurologic: moves all extremities - Labs Lab Results: Laboratory Results - last 24 hr 08/09/18 08/09/18 08/09/18 08:59 12:17 17:09 WBC RBC Hgb Hct MCV MCH MCHC RDW Plt Count PT INR Sodium Potassium Chloride Carbon Dioxide Anion Gap BUN Creatinine Estimated GFR BUN/Creatinine Ratio Glucose POC Glucose 268 H 283 H 330 H Calcium 08/09/18 08/10/18 08/10/18 21:48 04:00 05:00 WBC 7.5 RBC 2.99 L Hgb 8.0 L Hct 25.8 L MCV 86 MCH 27 L MCHC 31 RDW 20.2 H Plt Count 345 PT 22.7 H INR 1.86 H Sodium Potassium Chloride Carbon Dioxide Anion Gap BUN Creatinine Estimated GFR BUN/Creatinine Ratio Glucose POC Glucose 239 H Calcium 08/10/18 08/10/18 05:45 07:53 WBC RBC Hgb Hct MCV MCH MCHC RDW Plt Count PT INR Sodium 133 L Potassium 5.9 H D Chloride 104.4 Carbon Dioxide 17 L Anion Gap 18 BUN 25 H Creatinine 1.6 H Estimated GFR 41 BUN/Creatinine Ratio 16 Glucose 358 H POC Glucose 379 H Calcium 7.7 L Medications & Allergies - Medications Allergies/Adverse Reactions: Allergies No Known Allergies Allergy (Verified 12/03/16 23:01) Home Medications: Home Medications Medication Instructions Recorded Confirmed Last Taken Type Metoprolol [Lopressor TAB] 25 mg PO BID #60 tablet 12/29/16 01/29/17 Unknown Rx Famotidine [Pepcid] 20 mg PO DAILY #30 tablet 02/04/17 08/07/18 Unknown Rx Furosemide [Lasix TAB] 40 mg PO 0600,1800 #60 tablet 02/04/17 08/07/18 Unknown Rx Insulin NPH/Regular [NovoLIN 70/30] 18 unit SQ BIDDIAB #1 vial 02/04/17 08/07/18 Unknown Rx Metoprolol [Lopressor TAB] 50 mg PO TID #90 tablet 02/04/17 08/07/18 Unknown Rx Coumadin 08/02/18 Unknown History Active Medications: Generic Name Dose Route Start Last Admin Trade Name Freq PRN Reason Stop Dose Admin Albuterol 2.5 mg 08/01/18 17:42 Proventil IH Q3HRT PRN Shortness Of Breath Dextrose 0 ml 08/01/18 17:42 08/08/18 07:02 D50w (25gm) Syringe IV 50 ml PRN PRN Administration Hypoglycemia Folic Acid 1 mg 08/07/18 12:00 08/09/18 09:19 Folvite PO 1 mg QDAY [facility]LI Administration Hydralazine HCl 10 mg 08/01/18 17:47 Apresoline IV TID PRN Hypertension Heparin Sodium/Sodium Chloride 25,000 unit in 500 mls @ 14 mls/hr 08/06/18 06:30 08/09/18 05:01 Heparin/ 0.45% Nacl-25,000 Unit/500 Ml IV 950 units/hr TITR ULI 19 mls/hr Administration Protocol 700 UNITS/HR Insulin Human Lispro 0 unit 08/03/18 12:00 08/09/18 23:14 Humalog SUB-Q 3 unit ACHS ULI Administration Protocol Loperamide HCl 2 mg 08/06/18 14:19 Imodium PO Q2H PRN Diarrhea Metoprolol Tartrate 25 mg 08/05/18 22:00 08/09/18 22:04 Lopressor PO 25 mg BID ULI Administration Multivitamins 1 each 08/07/18 12:00 08/09/18 09:19 Theragran Tab PO 1 each QDAY [facility]LI Administration Pantoprazole Sodium 40 mg 08/06/18 10:00 08/09/18 09:19 Protonix PO 40 mg DAILY ULI Administration Potassium Phos/Sodium Phos 1 each 08/04/18 14:00 08/10/18 07:41 Phos-Nak PO Not Given Q8HR ULI Sodium Bicarbonate 650 mg 08/04/18 10:00 08/09/18 21:51 Sodium Bicarbonate PO 650 mg BID ULI Administration Sodium Chloride 10 ml 08/01/18 22:00 08/09/18 21:53 Sodium Chloride Flush Syringe 10 Ml IV 10 ml BID ULI Administration Sodium Chloride 10 ml 08/01/18 17:42 Sodium Chloride Flush Syringe 10 Ml IV PRN PRN LINE FLUSH Thiamine HCl 100 mg 08/07/18 12:00 08/09/18 09:19 Vitamin B-1 PO 100 mg QDAY [facility] Administration Warfarin Sodium 7.5 mg 08/07/18 17:00 08/09/18 17:43 Coumadin PO 7.5 mg DAILY@1700 ULI Administration Protocol
[2018-08-10] MEDS: HumaLOG SUB-Q SCH ×4 (09:27→22:30)
[2018-08-10] MEDS: PROTONIX PO SCH (09:28)
[2018-08-10] MEDS: SODIUM BICARBONATE PO SCH ×2 (09:28→22:29)
[2018-08-10] MEDS: FOLVITE PO SCH ×2 (09:28→09:32)
[2018-08-10] MEDS: VITAMIN B-1 PO SCH (09:28)
[2018-08-10 09:29] LABS: Basophils # (Auto) 0.1 K/mm3 (0.0-0.1); Eosinophils # (Auto) 0.2 K/mm3 (0.0-0.4); Eosinophils % (Auto) 3.1 % (0.0-4.3); Monocytes # (Auto) 1.1 K/mm3 (0.0-0.8); Monocytes % (Auto) 15.1 % (0.0-7.3)
[2018-08-10] MEDS: LOPRESSOR PO SCH ×2 (09:29→22:29)
[2018-08-10] MEDS: SODIUM CHLORIDE FLUSH SYRINGE 10 ML IV SCH ×2 (09:29→22:30)
[2018-08-10] MEDS: THERAGRAN Tab PO SCH ×2 (09:29→09:33)
[2018-08-10] MEDS ORDERED: FLORINEF PO SCH (10:00)
[2018-08-10] MEDS ORDERED: NACL 0.9% 1000 ML 1,000 ML IV SCH (10:00)
[2018-08-10] MEDS ORDERED: KIONEX PO NR (10:00)
[2018-08-10 14:37] LABS: Anisocytosis 1+; Basophils % (Manual) 0 % (0.0-1.8); Hypochromasia 1+; Ovalocytes 1+; Platelet Estimate Consistent w Auto; Total Cells Counted 100
[2018-08-10] MEDS: TYLENOL PO PRN ×2 (14:57→22:32)
[2018-08-10] MEDS ORDERED: KIONEX PO STA (16:55)
--- NOTE | 2018-08-10 16:57 | Progress Note ---
Assessment and Plan - Patient Problems (1) ASHELY (acute kidney injury) Current Visit: Yes Status: Acute Plan to address problem: Acute Kidney injury : - creatinine appears to have plateaued. - I reviewed renal US with small kidney cyst , normal size - urinalysis with proteinuria - likely underlying DM nephropathy - Avoid Nephrotoxic meds. - Strict input and output . (2) Hyperkalemia, diminished renal excretion Current Visit: Yes Status: Acute Plan to address problem: Hyperkalemia - likely related to hyperglycemia , potassium supplementation and CKD - will start florinef for now - Will give one time dose of kayexalate - stop potassium phosphate supplementation - Will give gentle fluids and then discontinue - Lasix if Shortness of breath ensues. (3) Diabetes 1.5, managed as type 1 Current Visit: No Status: Chronic Plan to address problem: Diabetes Mellitus type 1.5 - reports she is on 5units of lantus bid at home - elevated fingersticks with hyperglycemia today - Will need increased insulin - Monitor fingersticks. (4) Metabolic acidosis Current Visit: Yes Status: Acute Plan to address problem: Metabolic acidosis - setting of hyperglycemia - elevated anion gap - Will need to increase insulin dose to maintain euglycemia - Defer to primary team - Will increase sodium bicarbonate to 1300mg bid. Subjective Date of service: 08/10/18 Principal diagnosis: anticoag issues Interval history: 48 year old with medical history of mechanical heart valve on anticoagulation , HTN , DM type II admitted with DKA and Acute kidney injury Patient seen today labs signficant for hyperkalemia Discontinue potassium phosphate glucose is also elevated . Has some JVD . Has some minimal edema. Objective - Vital Signs Vital signs: Vital Signs - 12hr 08/10/18 08/10/18 08/10/18 08:10 11:55 11:57 Temperature 98.9 F 98.7 F Pulse Rate 90 Respiratory 18 18 Rate Blood Pressure 165/85 138/71 138/71 O2 Sat by Pulse 98 Oximetry 08/10/18 08/10/18 08/10/18 14:57 16:02 16:03 Temperature 98.4 F Pulse Rate 83 Respiratory 20 18 Rate Blood Pressure 161/96 161/96 O2 Sat by Pulse 98 Oximetry - General Appearance General appearance: well-developed, well-nourished EENT: ATNC, PERRL Neck: JVD, supple Respiratory: Present: Decreased Breath Sounds Cardiology: regular, S1S2 Gastrointestinal: normal Integumentary: warm and dry Neurologic: no focal deficit, alert and oriented x3 Psychiatric: mood/affect appropriate - Lab 08/10/18 04:00 08/10/18 05:45 Most recent lab results Calcium 7.7 mg/dL (8.4-10.2) L 08/10/18 05:45 Phosphorus 3.30 mg/dL (2.5-4.5) D 08/04/18 05:31 Magnesium 2.10 mg/dL (1.7-2.3) 08/04/18 05:31 Urine Creatinine 45.9 mg/dL (0.1-20.0) H 08/01/18 Unknown Urine Sodium 23 mmol/L 08/01/18 Unknown - Imaging Kidney/bladder ultrasound: image reviewed, other Medications & Allergies - Medications Allergies/Adverse Reactions: Allergies No Known Allergies Allergy (Verified 12/03/16 23:01) Home Medications: Home Medications Medication Instructions Recorded Confirmed Last Taken Type Metoprolol [Lopressor TAB] 25 mg PO BID #60 tablet 12/29/16 01/29/17 Unknown Rx Famotidine [Pepcid] 20 mg PO DAILY #30 tablet 02/04/17 08/07/18 Unknown Rx Furosemide [Lasix TAB] 40 mg PO 0600,1800 #60 tablet 02/04/17 08/07/18 Unknown Rx Insulin NPH/Regular [NovoLIN 70/30] 18 unit SQ BIDDIAB #1 vial 02/04/17 08/07/18 Unknown Rx Metoprolol [Lopressor TAB] 50 mg PO TID #90 tablet 02/04/17 08/07/18 Unknown Rx Coumadin 08/02/18 Unknown History Active Medications: Generic Name Dose Route Start Last Admin Trade Name Freq PRN Reason Stop Dose Admin Acetaminophen 650 mg 08/10/18 14:36 08/10/18 14:57 Tylenol PO 650 mg Q4H PRN Administration Pain, Moderate (4-6) Albuterol 2.5 mg 08/01/18 17:42 Proventil IH Q3HRT PRN Shortness Of Breath Dextrose 0 ml 08/01/18 17:42 08/08/18 07:02 D50w (25gm) Syringe IV 50 ml PRN PRN Administration Hypoglycemia Fludrocortisone Acetate 0.2 mg 08/10/18 10:00 08/10/18 12:40 Florinef PO 0.2 mg QDAY ULI Administration Folic Acid 1 mg 08/07/18 12:00 08/10/18 09:32 Folvite PO Not Given QDAY [facility] Hydralazine HCl 10 mg 08/01/18 17:47 Apresoline IV TID PRN Hypertension Heparin Sodium/Sodium Chloride 25,000 unit in 500 mls @ 14 mls/hr 08/06/18 06:30 08/10/18 11:53 Heparin/ 0.45% Nacl-25,000 Unit/500 Ml IV Infused TITR ULI Titration Protocol 700 UNITS/HR Sodium Chloride 1,000 mls @ 100 mls/hr 08/10/18 10:00 08/10/18 12:56 Nacl 0.9% 1000 Ml IV 100 mls/hr DIRECT ULI Administration Insulin Human Lispro 0 unit 08/03/18 12:00 08/10/18 12:32 Humalog SUB-Q 6 unit ACHS [facility] Administration Protocol Loperamide HCl 2 mg 08/06/18 14:19 Imodium PO Q2H PRN Diarrhea Metoprolol Tartrate 25 mg 08/05/18 22:00 08/10/18 09:29 Lopressor PO 25 mg BID ULI Administration Multivitamins 1 each 08/07/18 12:00 08/10/18 09:33 Theragran Tab PO Not Given QDAY [facility] Pantoprazole Sodium 40 mg 08/06/18 10:00 08/10/18 09:28 Protonix PO 40 mg DAILY ULI Administration Sodium Bicarbonate 650 mg 08/04/18 10:00 08/10/18 09:28 Sodium Bicarbonate PO 650 mg BID ULI Administration Sodium Chloride 10 ml 08/01/18 22:00 08/10/18 09:29 Sodium Chloride Flush Syringe 10 Ml IV 10 ml BID ULI Administration Sodium Chloride 10 ml 08/01/18 17:42 Sodium Chloride Flush Syringe 10 Ml IV PRN PRN LINE FLUSH Thiamine HCl 100 mg 08/07/18 12:00 08/10/18 09:28 Vitamin B-1 PO 100 mg QDAY [facility] Administration Warfarin Sodium 7.5 mg 08/07/18 17:00 08/09/18 17:43 Coumadin PO 7.5 mg DAILY@1700 ULI Administration Protocol
[2018-08-10] MEDS: COUMADIN PO SCH (17:11)
[2018-08-10] MEDS: HEPARIN/ 0.45% NACL-25,000 UNIT/500 ML 25,000 UNIT/500 ML BAG IV SCH (19:21)
[2018-08-11 06:54] LABS: Hematocrit 22.7 % (30.3-42.9); Hemoglobin 7.7 gm/dl (10.1-14.3); Mean Corpuscular HGB Conc 34 % (30-34); Mean Corpuscular Volume 85 fl (79-97); Platelet Count 342 K/mm3 (140-440); Red Blood Count 2.68 M/mm3 (3.65-5.03)
[2018-08-11 06:55] LABS: Red Cell Distribution Width 20.4 % (13.2-15.2)
[2018-08-11 07:03] LABS: INR 1.85 (0.87-1.13)
[2018-08-11 07:17] LABS: Calcium 7.8 mg/dL (8.4-10.2)
--- NOTE | 2018-08-11 08:09 | Hem/Onc Progress Note ---
Assessment and Plan 1. h/o Elevated INR secondary to Coumadin for mechanical mitral valve. The INR was elevated. The patient received blood transfusion. The patient had hematemesis. GI has been consulted. 2. Anemia, transfusion given. 3. Diabetic ketoacidosis. 4. Admitted for confusion. 5. Treated for sepsis. 6. Renal impairment. 7. Pharmacy will dose the Coumadin at this time INR. We will observe. 8. I will follow the patient during inpatient stay. inr 2.4 - as per pharmacy - vit k was not given - but based on the trend it appears it was given repeat INR - coumadin 5 mg for now - pharmacy will try to call tyshawn to know how many mg coumadin pt is on pt says she took 1 and 1 and half tab a day 08/06/2018 iv heparin - as inr low - pt must have got vit k coumadin - pharmacy to dose s/p egd 08/07 - inr low - iv heparin - d/w RN reg anti Xa level 08/08 - d/w dr caceres 08/09 - inr not therapeutic - pharmacy dosing - anemia - s/p transfusion 08/10 - inr - 1.8- d/w dr caceres 08/11 - inr not targetted 2.5-3.5 - clinically stable - Patient Problems (1) Coagulopathy Current Visit: Yes Status: Acute Subjective Date of service: 08/11/18 Principal diagnosis: [facility] valve - coagulation issue Interval history: says is ok - eating - ambulating - as per pt Objective - Constitutional Vitals: Last Vital Signs Temp 98.0 F 08/11/18 07:36 Pulse 86 08/11/18 07:36 Resp 16 08/11/18 07:36 BP 169/101 08/11/18 07:36 Pulse Ox 96 08/11/18 07:36 - Labs Lab Results: Laboratory Results - last 24 hr 08/10/18 08/10/18 08/10/18 04:00 05:00 05:45 WBC RBC Hgb Hct MCV MCH MCHC RDW Plt Count [place] % (Auto) 15.1 H Eos % (Auto) 3.1 [place] # 1.1 H Eos # 0.2 Baso # 0.1 Add Manual Diff Complete Total Counted 100 Seg Neutrophils % 62.1 Seg Neuts % (Manual) 64.0 Band Neutrophils % 0 Lymphocytes % (Manual) 17.0 Reactive Lymphs % (Man) 0 Monocytes % (Manual) 18.0 H Eosinophils % (Manual) 1.0 Basophils % (Manual) 0 Metamyelocytes % 0 Myelocytes % 0 Promyelocytes % 0 Blast Cells % 0 Nucleated RBC % Not Reportable Seg Neutrophils # 4.6 Seg Neutrophils # Man 4.8 Band Neutrophils # 0.0 Lymphocytes # (Manual) 1.3 Abs React Lymphs (Man) 0.0 Monocytes # (Manual) 1.4 H Eosinophils # (Manual) 0.1 Basophils # (Manual) 0.0 Metamyelocytes # 0.0 Myelocytes # 0.0 Promyelocytes # 0.0 Blast Cells # 0.0 WBC Morphology Not Reportable Hypersegmented Neuts Not Reportable Hyposegmented Neuts Not Reportable Hypogranular Neuts Not Reportable Smudge Cells Not Reportable Toxic Granulation Not Reportable Toxic Vacuolation Not Reportable Dohle Bodies Not Reportable Pelger-Huet Anomaly Not Reportable Mary Rods Not Reportable Platelet Estimate Consistent w auto Clumped Platelets Not Reportable Plt Clumps, EDTA Not Reportable Large Platelets Not Reportable Giant Platelets Not Reportable Platelet Satelliting Not Reportable Plt Morphology Comment Not Reportable RBC Morphology Not Reportable Dimorphic RBCs Not Reportable Polychromasia Not Reportable Hypochromasia 1+ Poikilocytosis Not Reportable Anisocytosis 1+ Microcytosis 1+ Macrocytosis Not Reportable Spherocytes Not Reportable Pappenheimer Bodies Not Reportable Sickle Cells Not Reportable Target Cells Not Reportable Tear Drop Cells Not Reportable Ovalocytes 1+ Helmet Cells Not Reportable Landers-[place]olden Bodies Not Reportable [place] Rings Not Reportable Jerri Cells Not Reportable Bite Cells Not Reportable Crenated Cell Not Reportable Elliptocytes Not Reportable Acanthocytes (Spur) Not Reportable Rouleaux Not Reportable Hemoglobin C Crystals Not Reportable Schistocytes Not Reportable Malaria parasites Not Reportable Michael Bodies Not Reportable Hem Pathologist Commnt No PT INR Heparin Anti-Xa Level 0.78 H Sodium 133 L Potassium 5.9 H D Chloride 104.4 Carbon Dioxide 17 L Anion Gap 18 BUN 25 H Creatinine 1.6 H Estimated GFR 41 BUN/Creatinine Ratio 16 Glucose 358 H POC Glucose Calcium 7.7 L 08/10/18 08/10/18 08/10/18 12:11 16:13 17:46 WBC RBC Hgb Hct MCV MCH MCHC RDW Plt Count [place] % (Auto) Eos % (Auto) [place] # Eos # Baso # Add Manual Diff Total Counted Seg Neutrophils % Seg Neuts % (Manual) Band Neutrophils % Lymphocytes % (Manual) Reactive Lymphs % (Man) Monocytes % (Manual) Eosinophils % (Manual) Basophils % (Manual) Metamyelocytes % Myelocytes % Promyelocytes % Blast Cells % Nucleated RBC % Seg Neutrophils # Seg Neutrophils # Man Band Neutrophils # Lymphocytes # (Manual) Abs React Lymphs (Man) Monocytes # (Manual) Eosinophils # (Manual) Basophils # (Manual) Metamyelocytes # Myelocytes # Promyelocytes # Blast Cells # WBC Morphology Hypersegmented Neuts Hyposegmented Neuts Hypogranular Neuts Smudge Cells Toxic Granulation Toxic Vacuolation Dohle Bodies Pelger-Huet Anomaly Mary Rods Platelet Estimate Clumped Platelets Plt Clumps, EDTA Large Platelets Giant Platelets Platelet Satelliting Plt Morphology Comment RBC Morphology Dimorphic RBCs Polychromasia Hypochromasia Poikilocytosis Anisocytosis Microcytosis Macrocytosis Spherocytes Pappenheimer Bodies Sickle Cells Target Cells Tear Drop Cells Ovalocytes Helmet Cells [place] Bodies [place] Rings Jerri Cells Bite Cells Crenated Cell Elliptocytes Acanthocytes (Spur) Rouleaux Hemoglobin C Crystals Schistocytes Malaria parasites Michael Bodies Hem Pathologist Commnt PT INR Heparin Anti-Xa Level 0.15 L Sodium Potassium Chloride Carbon Dioxide Anion Gap BUN Creatinine Estimated GFR BUN/Creatinine Ratio Glucose POC Glucose 346 H 305 H Calcium 08/10/18 08/11/18 08/11/18 20:54 01:34 06:33 WBC 7.2 RBC 2.68 L Hgb 7.7 L Hct 22.7 L MCV 85 MCH 29 MCHC 34 RDW 20.4 H Plt Count 342 [place] % (Auto) Funeral Home Manager Eos % (Auto) [place] # Eos # Baso # Add Manual Diff Total Counted Seg Neutrophils % Seg Neuts % (Manual) Band Neutrophils % Lymphocytes % (Manual) Reactive Lymphs % (Man) Monocytes % (Manual) Eosinophils % (Manual) Basophils % (Manual) Metamyelocytes % Myelocytes % Promyelocytes % Blast Cells % Nucleated RBC % Seg Neutrophils # Seg Neutrophils # Man Band Neutrophils # Lymphocytes # (Manual) Abs React Lymphs (Man) Monocytes # (Manual) Eosinophils # (Manual) Basophils # (Manual) Metamyelocytes # Myelocytes # Promyelocytes # Blast Cells # WBC Morphology Hypersegmented Neuts Hyposegmented Neuts Hypogranular Neuts Smudge Cells Toxic Granulation Toxic Vacuolation Dohle Bodies Pelger-Huet Anomaly Mary Rods Platelet Estimate Clumped Platelets Plt Clumps, EDTA Large Platelets Giant Platelets Platelet Satelliting Plt Morphology Comment RBC Morphology Dimorphic RBCs Polychromasia Hypochromasia Poikilocytosis Anisocytosis Microcytosis Macrocytosis Spherocytes Pappenheimer Bodies Sickle Cells Target Cells Tear Drop Cells Ovalocytes Helmet Cells [place] Bodies [place] Rings [place] Cells Bite Cells Crenated Cell Elliptocytes Acanthocytes (Spur) Rouleaux Hemoglobin C Crystals Schistocytes Malaria parasites Michael Bodies Hem Pathologist Commnt PT INR Heparin Anti-Xa Level 0.18 L Sodium Potassium Chloride Carbon Dioxide Anion Gap BUN Creatinine Estimated GFR BUN/Creatinine Ratio Glucose POC Glucose 302 H Calcium 08/11/18 08/11/18 06:33 06:33 WBC RBC Hgb Hct MCV MCH MCHC RDW Plt Count [place] % (Auto) Eos % (Auto) [place] # Eos # Baso # Add Manual Diff Total Counted Seg Neutrophils % Seg Neuts % (Manual) Band Neutrophils % Lymphocytes % (Manual) Reactive Lymphs % (Man) Monocytes % (Manual) Eosinophils % (Manual) Basophils % (Manual) Metamyelocytes % Myelocytes % Promyelocytes % Blast Cells % Nucleated RBC % Seg Neutrophils # Seg Neutrophils # Man Band Neutrophils # Lymphocytes # (Manual) Abs React Lymphs (Man) Monocytes # (Manual) Eosinophils # (Manual) Basophils # (Manual) Metamyelocytes # Myelocytes # Promyelocytes # Blast Cells # WBC Morphology Hypersegmented Neuts Hyposegmented Neuts Hypogranular Neuts Smudge Cells Toxic Granulation Toxic Vacuolation Dohle Bodies Pelger-Huet Anomaly Mary Rods Platelet Estimate Clumped Platelets Plt Clumps, EDTA Large Platelets Giant Platelets Platelet Satelliting Plt Morphology Comment RBC Morphology Dimorphic RBCs Polychromasia Hypochromasia Poikilocytosis Anisocytosis Microcytosis Macrocytosis Spherocytes Pappenheimer Bodies Sickle Cells Target Cells Tear Drop Cells Ovalocytes Helmet Cells [place] Bodies [place] Rings Jerri Cells Bite Cells Crenated Cell Elliptocytes Acanthocytes (Spur) Rouleaux Hemoglobin C Crystals Schistocytes Malaria parasites Michael Bodies Hem Pathologist Commnt PT 22.6 H INR 1.85 H Heparin Anti-Xa Level Sodium 134 L Potassium 4.4 D Chloride 101.0 Carbon Dioxide 21 L Anion Gap 16 BUN 31 H Creatinine 1.6 H Estimated GFR 41 BUN/Creatinine Ratio 19 Glucose 481 H POC Glucose Calcium 7.8 L Medications & Allergies - Medications Allergies/Adverse Reactions: Allergies No Known Allergies Allergy (Verified 12/03/16 23:01) Home Medications: Home Medications Medication Instructions Recorded Confirmed Last Taken Type Metoprolol [Lopressor TAB] 25 mg PO BID #60 tablet 12/29/16 08/11/18 Unknown Rx Famotidine [Pepcid] 20 mg PO DAILY #30 tablet 02/04/17 08/07/18 Unknown Rx Furosemide [Lasix TAB] 40 mg PO 0600,1800 #60 tablet 02/04/17 08/07/18 Unknown Rx Insulin NPH/Regular [NovoLIN 70/30] 18 unit SQ BIDDIAB #1 vial 02/04/17 08/07/18 Unknown Rx Metoprolol [Lopressor TAB] 50 mg PO TID #90 tablet 02/04/17 08/07/18 Unknown Rx Coumadin 5 mg PO DAILY 08/02/18 08/11/18 Unknown History Active Medications: Generic Name Dose Route Start Last Admin Trade Name Joeq PRN Reason Stop Dose Admin Acetaminophen 650 mg 08/10/18 14:36 08/10/18 22:32 Tylenol PO 650 mg Q4H PRN Administration Pain, Moderate (4-6) Albuterol 2.5 mg 08/01/18 17:42 Proventil IH Q3HRT PRN Shortness Of Breath Dextrose 0 ml 08/01/18 17:42 08/08/18 07:02 D50w (25gm) Syringe IV 50 ml PRN PRN Administration Hypoglycemia Fludrocortisone Acetate 0.2 mg 08/10/18 10:00 08/10/18 12:40 Florinef PO 0.2 mg QDAY ULI Administration Folic Acid 1 mg 08/07/18 12:00 08/10/18 09:32 Folvite PO Not Given QDAY ULI Hydralazine HCl 10 mg 08/01/18 17:47 Apresoline IV TID PRN Hypertension Heparin Sodium/Sodium Chloride 25,000 unit in 500 mls @ 14 mls/hr 08/06/18 06:30 08/11/18 04:41 Heparin/ 0.45% Nacl-25,000 Unit/500 Ml IV 1,000 units/hr TITR ULI 20 mls/hr Titration Protocol 700 UNITS/HR Insulin Human Lispro 0 unit 08/03/18 12:00 08/10/18 22:30 Humalog SUB-Q 6 unit ACHS ULI Administration Protocol Loperamide HCl 2 mg 08/06/18 14:19 Imodium PO Q2H PRN Diarrhea Metoprolol Tartrate 25 mg 08/05/18 22:00 08/10/18 22:29 Lopressor PO 25 mg BID ULI Administration Multivitamins 1 each 08/07/18 12:00 08/10/18 09:33 Theragran Tab PO Not Given QDAY [facility] Pantoprazole Sodium 40 mg 08/06/18 10:00 08/10/18 09:28 Protonix PO 40 mg DAILY ULI Administration Sodium Bicarbonate 1,300 mg 08/10/18 22:00 08/10/18 22:29 Sodium Bicarbonate PO 1,300 mg BID ULI Administration Sodium Chloride 10 ml 08/01/18 22:00 08/10/18 22:30 Sodium Chloride Flush Syringe 10 Ml IV 10 ml BID ULI Administration Sodium Chloride 10 ml 08/01/18 17:42 Sodium Chloride Flush Syringe 10 Ml IV PRN PRN LINE FLUSH Thiamine HCl 100 mg 08/07/18 12:00 08/10/18 09:28 Vitamin B-1 PO 100 mg QDAY [facility] Administration Warfarin Sodium 7.5 mg 08/07/18 17:00 08/10/18 17:11 Coumadin PO 7.5 mg DAILY@1700 [facility] Administration Protocol
[2018-08-11 08:34] LABS: Basophils % (Manual) 0 % (0.0-1.8); Eosinophils % (Manual) 0 % (0.0-4.3); Myelocytes # (Manual) 0.1 K/mm3; Total Cells Counted 100
[2018-08-11 08:35] LABS: Anisocytosis 1+; Poikilocytosis 1+
[2018-08-11 08:36] LABS: Hypochromasia Few; Ovalocytes Few; Platelet Estimate Consistent w Auto
--- NOTE | 2018-08-11 08:50 | Progress Note ---
Assessment and Plan Assessment and plan: 48 YO Female with HTN, LA, Cardiac Arrest, CAD, Malnutrition, DM, GERD, Medication Noncompliance presents to ED for evaluation. Pt is confused and lethargic at time of exam and the patient is unable to provide history. History taken from family as ED staff and EMS. As per report, EMS was notified and upon arrival to the patients motel room- the patient was found to be lethargic with decreased responsiveness. Pt transported to [facility] for further care and evaluation. Upon arrival the patient was found to have DKA, Sepsis, Acidosis, ARF, as well as elevated cardiac enzymes. No reports of fever, chills, CP, Palpitations, Syncope, trauma, falls, or loss of consciousness. Pt admitted to ICU and initiated on DKA and Sepsis Protocols respectively. Pulmonary team consulted, as well as Nephrology team for renal failure, and Cardiology team for elevated troponin. Patient received blood transfusion with EGD showing gastritis. She was noted to have elevated INR and Coumadin was held. The patient was also noted to be WITH HNKH And was treated with insuline for better improvement. she is awaiting therapeutic INR due to mechanical valve prior to discharge. Per information obtained from Pharmacy from [facility]. Patient was noted to have an INR of 2.6 at [facility] during her last visit. she was increased to 7.5mg MWF and 5MG TUTHSATSUN to get slightly higer (am unsure what the previous dose was) Her last visit at [place] was Jul. We were also informed that the patient appeared to have started on some type of self prescribed supplement that potentiates the effects of warfarin. Counselling has been provided to her about this. Acute on chronic Blood loss Anemia -transfused I unit of prbc -H/H stable, will monitor Suspected Upper GI bleeding -s/p EGD which showed gastritis -continue PPI Severe Coumadin toxicity -resolved -Discussed with patient patient will also receive extra Coumadin teaching prior to discharge. DM Insulin dependent s/p DKA -BG stable on current insulin therapy, adjust as needed H/o Mechanical Heart Valve -cont coumadin today 1.85 , Coumadin at 7.5. -INR goal of 2.5-3.5, will monitor - Acute delirium, probably 2/2 alcohol withdrawal -on alcohol withdrawal protocol -consider head CT scan if no improvement Acute on CRF with metabolic acidosis -levels improving, will monitor -renal US neg -nephrology on board Elevated troponin, multifactorial susepct 2/2 demand -echo showed EF of 40% with moderate TR and MO -Cardio on board Hx of alcohol abuse -cessation recommended Disp: for d/c when medically stable and INR level is therapeutic On discharge she will continue to follow other [place] [facility]. History Interval history: Patient seen and examined, Resting well. No new complaints today. States that she's been ambulating room with no dizziness or chest pain. Hospitalist Physical - Physical exam Narrative exam: General appearance: Present: no acute distress - EENT Eyes: Present: PERRL, EOM intact ENT: hearing intact, clear oral mucosa - Neck Neck: Present: supple - Respiratory Respiratory effort: normal Respiratory: bilateral: CTA - Cardiovascular Rhythm: regular Heart Sounds: Present: S1 & S2, click present. Well-healed surgical scar present - Extremities Extremity abnormal: edema (in BLE) - Abdominal General gastrointestinal: soft, non-tender, non-distended, normal bowel sounds - Neurologic Neurologic: CNII-XII intact - Constitutional Vitals: Temp Pulse Resp BP Pulse Ox 98.0 F 86 16 169/101 96 08/11/18 07:36 08/11/18 07:36 08/11/18 07:36 08/11/18 07:36 08/11/18 07:36 General appearance: Present: no acute distress Results - Labs CBC & Chem 7: 08/12/18 04:43 08/12/18 04:43 Labs: Laboratory Last Values WBC 7.2 K/mm3 (4.5-11.0) 08/11/18 06:33 RBC 2.68 M/mm3 (3.65-5.03) L 08/11/18 06:33 Hgb 7.7 gm/dl (10.1-14.3) L 08/11/18 06:33 Hct 22.7 % (30.3-42.9) L 08/11/18 06:33 MCV 85 fl (79-97) 08/11/18 06:33 MCH 29 pg (28-32) 08/11/18 06:33 MCHC 34 % (30-34) 08/11/18 06:33 RDW 20.4 % (13.2-15.2) H 08/11/18 06:33 Plt Count 342 K/mm3 (140-440) 08/11/18 06:33 Lymph % (Auto) 24.9 % (13.4-35.0) 08/09/18 06:11 [place] % (Auto) Family Support Coordinator 08/11/18 06:33 Eos % (Auto) 3.1 % (0.0-4.3) 08/10/18 04:00 Baso % (Auto) 0.7 % (0.0-1.8) 08/09/18 06:11 Lymph # 2.3 K/mm3 (1.2-5.4) 08/09/18 06:11 [place] # 1.1 K/mm3 (0.0-0.8) H 08/10/18 04:00 Eos # 0.2 K/mm3 (0.0-0.4) 08/10/18 04:00 Baso # 0.1 K/mm3 (0.0-0.1) 08/10/18 04:00 Add Manual Diff Complete 08/11/18 06:33 Total Counted 100 08/11/18 06:33 Seg Neutrophils % 62.1 % (40.0-70.0) 08/10/18 04:00 Seg Neuts % (Manual) 75.0 % (40.0-70.0) H 08/11/18 06:33 Band Neutrophils % 0 % 08/11/18 06:33 Lymphocytes % (Manual) 12.0 % (13.4-35.0) L 08/11/18 06:33 Reactive Lymphs % (Man) 0 % 08/11/18 06:33 Monocytes % (Manual) 11.0 % (0.0-7.3) H 08/11/18 06:33 Eosinophils % (Manual) 0 % (0.0-4.3) 08/11/18 06:33 Basophils % (Manual) 0 % (0.0-1.8) 08/11/18 06:33 Metamyelocytes % 0 % 08/11/18 06:33 Myelocytes % 2.0 % 08/11/18 06:33 Promyelocytes % 0 % 08/11/18 06:33 Blast Cells % 0 % 08/11/18 06:33 Nucleated RBC % 1.0 % (0.0-0.9) H 08/11/18 06:33 Seg Neutrophils # 4.6 K/mm3 (1.8-7.7) 08/10/18 04:00 Seg Neutrophils # Man 5.4 K/mm3 (1.8-7.7) 08/11/18 06:33 Band Neutrophils # 0.0 K/mm3 08/11/18 06:33 Lymphocytes # (Manual) 0.9 K/mm3 (1.2-5.4) L 08/11/18 06:33 Abs React Lymphs (Man) 0.0 K/mm3 08/11/18 06:33 Monocytes # (Manual) 0.8 K/mm3 (0.0-0.8) 08/11/18 06:33 Eosinophils # (Manual) 0.0 K/mm3 (0.0-0.4) 08/11/18 06:33 Basophils # (Manual) 0.0 K/mm3 (0.0-0.1) 08/11/18 06:33 Metamyelocytes # 0.0 K/mm3 08/11/18 06:33 Myelocytes # 0.1 K/mm3 08/11/18 06:33 Promyelocytes # 0.0 K/mm3 08/11/18 06:33 Blast Cells # 0.0 K/mm3 08/11/18 06:33 WBC Morphology Not Reportable 08/11/18 06:33 Hypersegmented Neuts Not Reportable 08/11/18 06:33 Hyposegmented Neuts Not Reportable 08/11/18 06:33 Hypogranular Neuts Not Reportable 08/11/18 06:33 Smudge Cells Not Reportable 08/11/18 06:33 Toxic Granulation Not Reportable 08/11/18 06:33 Toxic Vacuolation Not Reportable 08/11/18 06:33 Dohle Bodies Not Reportable 08/11/18 06:33 Pelger-Huet Anomaly Not Reportable 08/11/18 06:33 Mary Rods Not Reportable 08/11/18 06:33 Platelet Estimate Consistent w auto 08/11/18 06:33 Clumped Platelets Not Reportable 08/11/18 06:33 Plt Clumps, EDTA Not Reportable 08/11/18 06:33 Large Platelets Not Reportable 08/11/18 06:33 Giant Platelets Not Reportable 08/11/18 06:33 Platelet Satelliting Not Reportable 08/11/18 06:33 Plt Morphology Comment Not Reportable 08/11/18 06:33 RBC Morphology Not Reportable 08/11/18 06:33 Dimorphic RBCs Not Reportable 08/11/18 06:33 Polychromasia Not Reportable 08/11/18 06:33 Hypochromasia Few 08/11/18 06:33 Poikilocytosis 1+ 08/11/18 06:33 Anisocytosis 1+ 08/11/18 06:33 Microcytosis 1+ 08/11/18 06:33 Macrocytosis Not Reportable 08/11/18 06:33 Spherocytes Not Reportable 08/11/18 06:33 Pappenheimer Bodies Not Reportable 08/11/18 06:33 Sickle Cells Not Reportable 08/11/18 06:33 Target Cells Not Reportable 08/11/18 06:33 Tear Drop Cells Not Reportable 08/11/18 06:33 Ovalocytes Few 08/11/18 06:33 Helmet Cells Not Reportable 08/11/18 06:33 Landers-Godwin Bodies Not Reportable 08/11/18 06:33 [place] Rings Not Reportable 08/11/18 06:33 Bishop Cells Not Reportable 08/11/18 06:33 Bite Cells Not Reportable 08/11/18 06:33 Crenated Cell Not Reportable 08/11/18 06:33 Elliptocytes Not Reportable 08/11/18 06:33 Acanthocytes (Spur) Not Reportable 08/11/18 06:33 Rouleaux Not Reportable 08/11/18 06:33 Hemoglobin C Crystals Not Reportable 08/11/18 06:33 Schistocytes Not Reportable 08/11/18 06:33 Malaria parasites Not Reportable 08/11/18 06:33 Michael Bodies Not Reportable 08/11/18 06:33 Hem Pathologist Commnt No 08/11/18 06:33 PT 22.6 Sec. (12.2-14.9) H 08/11/18 06:33 INR 1.85 (0.87-1.13) H 08/11/18 06:33 APTT 27.0 Sec. (24.2-36.6) 08/06/18 11:55 Heparin Anti-Xa Level 0.18 U.I./ml (0.3-0.7) L 08/11/18 01:34 VBG pH 6.903 (7.320-7.420) L* 08/01/18 16:17 Sodium 134 mmol/L (137-145) L 08/11/18 06:33 Potassium 4.4 mmol/L (3.6-5.0) D 08/11/18 06:33 Chloride 101.0 mmol/L (98-107) 08/11/18 06:33 Carbon Dioxide 21 mmol/L (22-30) L 08/11/18 06:33 Anion Gap 16 mmol/L 08/11/18 06:33 BUN 31 mg/dL (7-17) H 08/11/18 06:33 Creatinine 1.6 mg/dL (0.7-1.2) H 08/11/18 06:33 Estimated GFR 41 ml/min 08/11/18 06:33 BUN/Creatinine Ratio 19 % 08/11/18 06:33 Glucose 481 mg/dL (65-100) H 08/11/18 06:33 POC Glucose 302 (70-105) H 08/10/18 20:54 Lactic Acid 1.90 mmol/L (0.7-2.0) 08/03/18 09:41 Calcium 7.8 mg/dL (8.4-10.2) L 08/11/18 06:33 Phosphorus 3.30 mg/dL (2.5-4.5) D 08/04/18 05:31 Magnesium 2.10 mg/dL (1.7-2.3) 08/04/18 05:31 Iron 97 ug/dL (37-170) 08/04/18 19:22 TIBC 258 mcg/dL (250-450) 08/04/18 19:22 Ferritin 258.8 ng/mL (13.0-400.0) 08/04/18 19:22 Total Bilirubin 0.40 mg/dL (0.1-1.2) 08/04/18 09:38 Direct Bilirubin < 0.2 mg/dL (0-0.2) 08/04/18 09:38 Indirect Bilirubin 0.2 mg/dL 08/04/18 09:38 AST 127 units/L (5-40) H 08/04/18 09:38 ALT 40 units/L (7-56) 08/04/18 09:38 Alkaline Phosphatase 262 units/L (35-129) H 08/04/18 09:38 Troponin T 0.079 ng/mL (0.00-0.029) H D 08/03/18 08:20 Total Protein 4.8 g/dL (6.3-8.2) L 08/04/18 09:38 Albumin 2.7 g/dL (3.9-5) L 08/04/18 09:38 Albumin/Globulin Ratio 1.3 % 08/04/18 09:38 Triglycerides 279 mg/dL (2-149) H 08/01/18 16:17 Cholesterol 229 mg/dL (50-199) H 08/01/18 16:17 LDL Cholesterol Direct 154 mg/dL (50-130) H 08/01/18 16:17 HDL Cholesterol 47 mg/dL (40-59) 08/01/18 16:17 Cholesterol/HDL Ratio 4.87 % 08/01/18 16:17 Lipase 43 units/L (13-60) 08/01/18 16:17 Vitamin B12 > 2000 pg/mL (211-911) H 08/04/18 19:36 Folate 8.75 ng/mL (7.3-26.0) 08/04/18 19:36 Urine Color Yellow (Yellow) 08/01/18 17:15 Urine Turbidity Cloudy (Clear) 08/01/18 17:15 Urine pH 5.0 (5.0-7.0) 08/01/18 17:15 Ur Specific [place] 1.021 (1.003-1.030) 08/01/18 17:15 Urine Protein 100 mg/dl mg/dL (Negative) 08/01/18 17:15 Urine Glucose (UA) >=500 mg/dL (Negative) 08/01/18 17:15 Urine Ketones 20 mg/dL (Negative) 08/01/18 17:15 Urine Blood Mod (Negative) 08/01/18 17:15 Urine Nitrite Neg (Negative) 08/01/18 17:15 Urine Bilirubin Neg (Negative) 08/01/18 17:15 Urine Urobilinogen < 2.0 mg/dL (<2.0) 08/01/18 17:15 Ur Leukocyte Esterase Neg (Negative) 08/01/18 17:15 Urine WBC (Auto) 17.0 /HPF (0.0-6.0) H 08/01/18 17:15 Urine RBC (Auto) 4.0 /HPF (0.0-6.0) 08/01/18 17:15 U Epithel Cells (Auto) 23.0 /HPF (0-13.0) H 08/01/18 17:15 Urine Bacteria (Auto) 1+ /HPF (Negative) 08/01/18 17:15 Urine Mucus Few /HPF 08/01/18 17:15 Urine Yeast (Budding) 2+ /HPF 08/01/18 17:15 Urine Creatinine 45.9 mg/dL (0.1-20.0) H 08/01/18 Unknown Urine Sodium 23 mmol/L 08/01/18 Unknown Influenza A (Rapid) Negative (Negative) 08/04/18 05:30 Influenza B (Rapid) Negative (Negative) 08/04/18 05:30 Blood Type O POSITIVE 08/03/18 09:38 Antibody Screen Negative 08/03/18 09:38 Crossmatch See Detail 08/03/18 09:38 Nutrition/Malnutrition Assess - Dietary Evaluation Nutrition/Malnutrition Findings: Nutrition Notes Start: 08/02/18 10:23 Freq: Status: Active Protocol: Document 08/10/18 15:10 RM (Rec: 08/10/18 15:15 RM [id number]) Nutrition Notes Initial or Follow up Reassessment Current Diagnosis Coronary Artery Disease, Diabetes,Hypertension,Stroke Other Pertinent Diagnosis DKA, GERD Current Diet Cardiac/Consistent CHO Labs/Tests K 5.9, BG 358 Pertinent Medications Reviewed Height 5 ft 4 in Weight 60.45 kg Fletcher Body Weight (kg) 54.54 BMI 22.8 Subjective/Other Information Pt stated that she eating all of her meals and drinking the Nepro as snacks. Percent of energy/protein needs met: 100%/100% Burn Absent Trauma Absent #1 Nutrition Diagnosis Inadequate oral intake As Evidenced by Signs and Symptoms pt meeting 100% of calorie and protein needs Diagnosis Progress(for reassessment Resolved documentation) Is patient on ventilator? No Is Patient Ambulatory and/or Out of Bed No REE-(Jamul-St. Jeor-confined to bed) 1461.384 Calculation Used for Recommendations Jamul-St Jeor Additional Notes PRO: 48-60g (0.8-1 g/kg) Fluid: 1mL/hr Nutrition Intervention Add Supplement/Snack (indicate name/kcal Nepro 1 daily /protein ) Provides kCal: 450 Provides Protein (gm) 19 Goal #1 Continue to meet at least 75% of calorie and protein needs via PO and ONS intakes Anticipated Discharge Needs: Cardiac/Consistent CHO Follow-Up By: 08/17/18 Additional Comments Follow for PO and ONS intakes
[2018-08-11] MEDS: HumaLOG SUB-Q SCH ×4 (09:01→22:30)
[2018-08-11] MEDS: THERAGRAN Tab PO SCH (09:02)
[2018-08-11] MEDS: VITAMIN B-1 PO SCH (09:02)
[2018-08-11] MEDS: PROTONIX PO SCH (09:02)
[2018-08-11] MEDS: SODIUM BICARBONATE PO SCH ×2 (09:02→22:28)
[2018-08-11] MEDS: FOLVITE PO SCH (09:02)
[2018-08-11] MEDS: LOPRESSOR PO SCH ×2 (09:02→22:27)
[2018-08-11] MEDS: SODIUM CHLORIDE FLUSH SYRINGE 10 ML IV SCH ×2 (09:03→22:28)
[2018-08-11] MEDS ORDERED: HEPARIN 10,000 UNITS/10 ML IV ONE ×2 (13:22→15:35)
[2018-08-11] MEDS ORDERED: COUMADIN PO SCH (17:00)
--- NOTE | 2018-08-11 17:11 | Progress Note ---
Assessment and Plan - Patient Problems (1) ASHELY (acute kidney injury) Current Visit: Yes Status: Acute Plan to address problem: Acute Kidney injury : - creatinine 1.6mg/dl - creatinine appears to have plateaued. - I reviewed renal US with small kidney cyst , normal size - urinalysis with proteinuria - likely underlying DM nephropathy - Avoid Nephrotoxic meds. - Strict input and output . (2) Hyperkalemia, diminished renal excretion Current Visit: Yes Status: Acute Plan to address problem: Hyperkalemia resolved - likely related to hyperglycemia , potassium supplementation and CKD -Discontinue florinef for now -Received one time dose of kayexalate - stop potassium phosphate supplementation Intravenous fluids have been discontinued (3) Diabetes 1.5, managed as type 1 Current Visit: No Status: Chronic Plan to address problem: Diabetes Mellitus type 1.5 - reports she is on 5units of lantus bid at home - elevated fingersticks with hyperglycemia today - Will need increased insulin - Monitor fingersticks. (4) Metabolic acidosis Current Visit: Yes Status: Acute Plan to address problem: Metabolic acidosis - setting of hyperglycemia - elevated anion gap - Will need to increase insulin dose to maintain euglycemia - Defer to primary team -Continue sodium bicarbonate to 1300mg bid. Subjective Date of service: 08/11/18 Principal diagnosis: acute kidney injury follow-up Interval history: 48 year old with medical history of mechanical heart valve on anticoagulation , HTN , DM type II admitted with DKA and Acute kidney injury Patient seen today She's anxious to be discharged Denies any orthopnea PND Denies any shortness of breath has minimal lower extremity edema remains on heparin drip Objective - Vital Signs Vital signs: Vital Signs - 12hr 08/11/18 08/11/18 08/11/18 07:36 09:02 09:03 Temperature 98.0 F Pulse Rate 86 86 86 Respiratory 16 Rate Blood Pressure 169/101 169/101 169/101 O2 Sat by Pulse 96 Oximetry 08/11/18 11:43 Temperature 98.3 F Pulse Rate 92 H Respiratory 18 Rate Blood Pressure 143/75 O2 Sat by Pulse 98 Oximetry - General Appearance General appearance: well-developed, well-nourished EENT: ATNC, PERRL Neck: JVD Respiratory: Present: Clear to Ascultation Cardiology: regular, S1S2 Gastrointestinal: normal, normoactive bowel sounds Integumentary: no rash Neurologic: no focal deficit, alert and oriented x3 Musculoskeletal: deformities Psychiatric: mood/affect appropriate - Lab 08/11/18 06:33 08/11/18 06:33 Most recent lab results Calcium 7.8 mg/dL (8.4-10.2) L 08/11/18 06:33 Phosphorus 3.30 mg/dL (2.5-4.5) D 08/04/18 05:31 Magnesium 2.10 mg/dL (1.7-2.3) 08/04/18 05:31 Urine Creatinine 45.9 mg/dL (0.1-20.0) H 08/01/18 Unknown Urine Sodium 23 mmol/L 08/01/18 Unknown - Imaging Chest x-ray: image reviewed (cardiomegaly no overt edema on chest x-ray) Medications & Allergies - Medications Allergies/Adverse Reactions: Allergies No Known Allergies Allergy (Verified 12/03/16 23:01) Home Medications: Home Medications Medication Instructions Recorded Confirmed Last Taken Type Metoprolol [Lopressor TAB] 25 mg PO BID #60 tablet 12/29/16 01/29/17 Unknown Rx Famotidine [Pepcid] 20 mg PO DAILY #30 tablet 02/04/17 08/07/18 Unknown Rx Furosemide [Lasix TAB] 40 mg PO 0600,1800 #60 tablet 02/04/17 08/07/18 Unknown Rx Insulin NPH/Regular [NovoLIN 70/30] 18 unit SQ BIDDIAB #1 vial 02/04/17 08/07/18 Unknown Rx Metoprolol [Lopressor TAB] 50 mg PO TID #90 tablet 02/04/17 08/07/18 Unknown Rx Coumadin 08/02/18 Unknown History Active Medications: Generic Name Dose Route Start Last Admin Trade Name Freq PRN Reason Stop Dose Admin Acetaminophen 650 mg 08/10/18 14:36 08/10/18 22:32 Tylenol PO 650 mg Q4H PRN Administration Pain, Moderate (4-6) Albuterol 2.5 mg 08/01/18 17:42 Proventil IH Q3HRT PRN Shortness Of Breath Dextrose 0 ml 08/01/18 17:42 08/08/18 07:02 D50w (25gm) Syringe IV 50 ml PRN PRN Administration Hypoglycemia Folic Acid 1 mg 08/07/18 12:00 08/11/18 09:02 Folvite PO 1 mg QDAY [facility] Administration Hydralazine HCl 10 mg 08/01/18 17:47 08/11/18 09:03 Apresoline IV 10 mg TID PRN Administration Hypertension Heparin Sodium/Sodium Chloride 25,000 unit in 500 mls @ 14 mls/hr 08/06/18 06:30 08/11/18 14:10 Heparin/ 0.45% Nacl-25,000 Unit/500 Ml IV 1,200 units/hr TITR U[facility] 24 mls/hr Titration Protocol 700 UNITS/HR Insulin Glargine 5 units 08/11/18 22:00 Lantus SUB-Q QHS [facility] Insulin Human Lispro 0 unit 08/03/18 12:00 08/11/18 13:32 Humalog SUB-Q 8 unit ACHS [facility] Administration Protocol Loperamide HCl 2 mg 08/06/18 14:19 Imodium PO Q2H PRN Diarrhea Metoprolol Tartrate 25 mg 08/05/18 22:00 08/11/18 09:02 Lopressor PO 25 mg BID [facility] Administration Multivitamins 1 each 08/07/18 12:00 08/11/18 09:02 Theragran Tab PO 1 each QDAY [facility] Administration Pantoprazole Sodium 40 mg 08/06/18 10:00 08/11/18 09:02 Protonix PO 40 mg DAILY [facility] Administration Sodium Bicarbonate 1,300 mg 08/10/18 22:00 08/11/18 09:02 Sodium Bicarbonate PO 1,300 mg BID [facility]LI Administration Sodium Chloride 10 ml 08/01/18 22:00 08/11/18 09:03 Sodium Chloride Flush Syringe 10 Ml IV 10 ml BID [facility] Administration Sodium Chloride 10 ml 08/01/18 17:42 Sodium Chloride Flush Syringe 10 Ml IV PRN PRN LINE FLUSH Thiamine HCl 100 mg 08/07/18 12:00 08/11/18 09:02 Vitamin B-1 PO 100 mg QDAY [facility] Administration Warfarin Sodium 7.5 mg 08/07/18 17:00 08/10/18 17:11 Coumadin PO 7.5 mg DAILY@1700 [facility] Administration Protocol
[2018-08-11] MEDS: COUMADIN PO SCH (17:43)
[2018-08-11] MEDS ORDERED: RESTORIL PO PRN (22:09)
[2018-08-11] MEDS: LANTUS SUB-Q SCH (22:28)
[2018-08-12 05:34] LABS: Hematocrit 27.1 % (30.3-42.9); Hemoglobin 8.8 gm/dl (10.1-14.3)
[2018-08-12 05:46] LABS: INR 2.24 (0.87-1.13)
[2018-08-12 06:05] LABS: Calcium 8.1 mg/dL (8.4-10.2)
--- NOTE | 2018-08-12 08:31 | Hem/Onc Progress Note ---
Assessment and Plan 1. h/o Elevated INR secondary to Coumadin for mechanical mitral valve. The INR was elevated. The patient received blood transfusion. The patient had hematemesis. GI has been consulted. 2. Anemia, transfusion given. 3. Diabetic ketoacidosis. 4. Admitted for confusion. 5. Treated for sepsis. 6. Renal impairment. 7. Pharmacy will dose the Coumadin at this time INR. We will observe. 8. I will follow the patient during inpatient stay. inr 2.4 - as per pharmacy - vit k was not given - but based on the trend it appears it was given repeat INR - coumadin 5 mg for now - pharmacy will try to call tyshawn to know how many mg coumadin pt is on pt says she took 1 and 1 and half tab a day 08/06/2018 iv heparin - as inr low - pt must have got vit k coumadin - pharmacy to dose s/p egd 08/07 - inr low - iv heparin - d/w RN reg anti Xa level 08/08 - d/w dr caceres 08/09 - inr not therapeutic - pharmacy dosing - anemia - s/p transfusion 08/10 - inr - 1.8- d/w dr caceres 08/11 - inr not targetted 2.5-3.5 - clinically stable 08/12 - d/w dr caceres - Patient Problems (1) Coagulopathy Current Visit: Yes Status: Acute Subjective Date of service: 08/12/18 Principal diagnosis: coagulation abn Interval history: feeling good - no bleeding Objective - Constitutional Vitals: Last Vital Signs Temp 97.7 F 08/12/18 04:13 Pulse 90 08/12/18 04:13 Resp 16 08/12/18 04:13 BP 167/90 08/12/18 04:13 Pulse Ox 96 08/12/18 04:13 Pain Intensity (0-10): denies any pain General appearance: no acute distress Performance status: 2- selfcare, ambulatory - EENT Eyes: EOM intact ENT: clear oral mucosa Lymph node exam: negative cervical - Neck Neck: normal ROM - Respiratory Respiratory effort: Positive: normal Respiratory: bilateral: CTA - Cardiovascular Heart Sounds: Present: S1 & S2 Extremities: No edema - Gastrointestinal General gastrointestinal: Present: soft, non-tender Rectal Exam: deferred - Genitourinary Female genitourinary: Present: deferred - Integumentary Integumentary: warm - Musculoskeletal Musculoskeletal: strength equal bilaterally - Neurologic Neurologic: moves all extremities - Labs Lab Results: Laboratory Results - last 24 hr 08/11/18 08/11/18 08/11/18 06:33 07:39 09:19 Hgb Hct Plt Count Add Manual Diff Complete Total Counted 100 Seg Neuts % (Manual) 75.0 H Band Neutrophils % 0 Lymphocytes % (Manual) 12.0 L Reactive Lymphs % (Man) 0 Monocytes % (Manual) 11.0 H Eosinophils % (Manual) 0 Basophils % (Manual) 0 Metamyelocytes % 0 Myelocytes % 2.0 Promyelocytes % 0 Blast Cells % 0 Nucleated RBC % 1.0 H Seg Neutrophils # Man 5.4 Band Neutrophils # 0.0 Lymphocytes # (Manual) 0.9 L Abs React Lymphs (Man) 0.0 Monocytes # (Manual) 0.8 Eosinophils # (Manual) 0.0 Basophils # (Manual) 0.0 Metamyelocytes # 0.0 Myelocytes # 0.1 Promyelocytes # 0.0 Blast Cells # 0.0 WBC Morphology Not Reportable Hypersegmented Neuts Not Reportable Hyposegmented Neuts Not Reportable Hypogranular Neuts Not Reportable Smudge Cells Not Reportable Toxic Granulation Not Reportable Toxic Vacuolation Not Reportable Dohle Bodies Not Reportable Pelger-Huet Anomaly Not Reportable Mary Rods Not Reportable Platelet Estimate Consistent w auto Clumped Platelets Not Reportable Plt Clumps, EDTA Not Reportable Large Platelets Not Reportable Giant Platelets Not Reportable Platelet Satelliting Not Reportable Plt Morphology Comment Not Reportable RBC Morphology Not Reportable Dimorphic RBCs Not Reportable Polychromasia Not Reportable Hypochromasia Few Poikilocytosis 1+ Anisocytosis 1+ Microcytosis 1+ Macrocytosis Not Reportable Spherocytes Not Reportable Pappenheimer Bodies Not Reportable Sickle Cells Not Reportable Target Cells Not Reportable Tear Drop Cells Not Reportable Ovalocytes Few Helmet Cells Not Reportable Landers-S[place] Bodies Not Reportable [place] Rings Not Reportable Jerri Cells Not Reportable Bite Cells Not Reportable Crenated Cell Not Reportable Elliptocytes Not Reportable Acanthocytes (Spur) Not Reportable Rouleaux Not Reportable Hemoglobin C Crystals Not Reportable Schistocytes Not Reportable Malaria parasites Not Reportable Michael Bodies Not Reportable Hem Pathologist Commnt No PT INR Heparin Anti-Xa Level < 0.10 L Sodium Potassium Chloride Carbon Dioxide Anion Gap BUN Creatinine Estimated GFR BUN/Creatinine Ratio Glucose POC Glucose 443 H Calcium NT-Pro-B Natriuret Pep 08/11/18 08/11/18 08/11/18 09:19 11:44 17:26 Hgb Hct Plt Count Add Manual Diff Total Counted Seg Neuts % (Manual) Band Neutrophils % Lymphocytes % (Manual) Reactive Lymphs % (Man) Monocytes % (Manual) Eosinophils % (Manual) Basophils % (Manual) Metamyelocytes % Myelocytes % Promyelocytes % Blast Cells % Nucleated RBC % Seg Neutrophils # Man Band Neutrophils # Lymphocytes # (Manual) Abs React Lymphs (Man) Monocytes # (Manual) Eosinophils # (Manual) Basophils # (Manual) Metamyelocytes # Myelocytes # Promyelocytes # Blast Cells # WBC Morphology Hypersegmented Neuts Hyposegmented Neuts Hypogranular Neuts Smudge Cells Toxic Granulation Toxic Vacuolation Dohle Bodies Pelger-Huet Anomaly Mary Rods Platelet Estimate Clumped Platelets Plt Clumps, EDTA Large Platelets Giant Platelets Platelet Satelliting Plt Morphology Comment RBC Morphology Dimorphic RBCs Polychromasia Hypochromasia Poikilocytosis Anisocytosis Microcytosis Macrocytosis Spherocytes Pappenheimer Bodies Sickle Cells Target Cells Tear Drop Cells Ovalocytes Helmet Cells Landers-[place] Bodies [place] Rings Jerri Cells Bite Cells Crenated Cell Elliptocytes Acanthocytes (Spur) Rouleaux Hemoglobin C Crystals Schistocytes Malaria parasites Michael Bodies Hem Pathologist Commnt PT INR Heparin Anti-Xa Level Sodium Potassium Chloride Carbon Dioxide Anion Gap BUN Creatinine Estimated GFR BUN/Creatinine Ratio Glucose POC Glucose 413 H 273 H Calcium NT-Pro-B Natriuret Pep 84629 H 08/11/18 08/11/18 08/12/18 19:48 20:48 04:43 Hgb 8.8 L Hct 27.1 L Plt Count 393 Add Manual Diff Total Counted Seg Neuts % (Manual) Band Neutrophils % Lymphocytes % (Manual) Reactive Lymphs % (Man) Monocytes % (Manual) Eosinophils % (Manual) Basophils % (Manual) Metamyelocytes % Myelocytes % Promyelocytes % Blast Cells % Nucleated RBC % Seg Neutrophils # Man Band Neutrophils # Lymphocytes # (Manual) Abs React Lymphs (Man) Monocytes # (Manual) Eosinophils # (Manual) Basophils # (Manual) Metamyelocytes # Myelocytes # Promyelocytes # Blast Cells # WBC Morphology Hypersegmented Neuts Hyposegmented Neuts Hypogranular Neuts Smudge Cells Toxic Granulation Toxic Vacuolation Dohle Bodies Pelger-Huet Anomaly Mary Rods Platelet Estimate Clumped Platelets Plt Clumps, EDTA Large Platelets Giant Platelets Platelet Satelliting Plt Morphology Comment RBC Morphology Dimorphic RBCs Polychromasia Hypochromasia Poikilocytosis Anisocytosis Microcytosis Macrocytosis Spherocytes Pappenheimer Bodies Sickle Cells Target Cells Tear Drop Cells Ovalocytes Helmet Cells Landers-S[place]uma Bodies [place] Rings Jerri Cells Bite Cells Crenated Cell Elliptocytes Acanthocytes (Spur) Rouleaux Hemoglobin C Crystals Schistocytes Malaria parasites Michael Bodies Hem Pathologist Commnt PT INR Heparin Anti-Xa Level 0.40 Sodium Potassium Chloride Carbon Dioxide Anion Gap BUN Creatinine Estimated GFR BUN/Creatinine Ratio Glucose POC Glucose 209 H Calcium NT-Pro-B Natriuret Pep 08/12/18 08/12/18 08/12/18 04:43 04:43 08:02 Hgb Hct Plt Count Add Manual Diff Total Counted Seg Neuts % (Manual) Band Neutrophils % Lymphocytes % (Manual) Reactive Lymphs % (Man) Monocytes % (Manual) Eosinophils % (Manual) Basophils % (Manual) Metamyelocytes % Myelocytes % Promyelocytes % Blast Cells % Nucleated RBC % Seg Neutrophils # Man Band Neutrophils # Lymphocytes # (Manual) Abs React Lymphs (Man) Monocytes # (Manual) Eosinophils # (Manual) Basophils # (Manual) Metamyelocytes # Myelocytes # Promyelocytes # Blast Cells # WBC Morphology Hypersegmented Neuts Hyposegmented Neuts Hypogranular Neuts Smudge Cells Toxic Granulation Toxic Vacuolation Dohle Bodies Pelger-Huet Anomaly Mary Rods Platelet Estimate Clumped Platelets Plt Clumps, EDTA Large Platelets Giant Platelets Platelet Satelliting Plt Morphology Comment RBC Morphology Dimorphic RBCs Polychromasia Hypochromasia Poikilocytosis Anisocytosis Microcytosis Macrocytosis Spherocytes Pappenheimer Bodies Sickle Cells Target Cells Tear Drop Cells Ovalocytes Helmet Cells Landers-[place] Bodies [place] Rings [place] Cells Bite Cells Crenated Cell Elliptocytes Acanthocytes (Spur) Rouleaux Hemoglobin C Crystals Schistocytes Malaria parasites Michael Bodies Hem Pathologist Commnt PT 26.3 H INR 2.24 H Heparin Anti-Xa Level Sodium 138 Potassium 4.1 Chloride 104.1 Carbon Dioxide 21 L Anion Gap 17 BUN 30 H Creatinine 1.7 H Estimated GFR 39 BUN/Creatinine Ratio 18 Glucose 241 H POC Glucose 260 H Calcium 8.1 L NT-Pro-B Natriuret Pep Medications & Allergies - Medications Allergies/Adverse Reactions: Allergies No Known Allergies Allergy (Verified 12/03/16 23:01) Home Medications: Home Medications Medication Instructions Recorded Confirmed Last Taken Type Metoprolol [Lopressor TAB] 25 mg PO BID #60 tablet 12/29/16 08/11/18 Unknown Rx Famotidine [Pepcid] 20 mg PO DAILY #30 tablet 02/04/17 08/07/18 Unknown Rx Furosemide [Lasix TAB] 40 mg PO 0600,1800 #60 tablet 02/04/17 08/07/18 Unknown Rx Insulin NPH/Regular [NovoLIN 70/30] 18 unit SQ BIDDIAB #1 vial 02/04/17 08/07/18 Unknown Rx Metoprolol [Lopressor TAB] 50 mg PO TID #90 tablet 02/04/17 08/07/18 Unknown Rx Coumadin 5 mg PO DAILY 08/02/18 08/11/18 Unknown History Active Medications: Generic Name Dose Route Start Last Admin Trade Name Freq PRN Reason Stop Dose Admin Acetaminophen 650 mg 08/10/18 14:36 08/10/18 22:32 Tylenol PO 650 mg Q4H PRN Administration Pain, Moderate (4-6) Albuterol 2.5 mg 08/01/18 17:42 Proventil IH Q3HRT PRN Shortness Of Breath Dextrose 0 ml 08/01/18 17:42 08/08/18 07:02 D50w (25gm) Syringe IV 50 ml PRN PRN Administration Hypoglycemia Folic Acid 1 mg 08/07/18 12:00 08/11/18 09:02 Folvite PO 1 mg QDAY [facility] Administration Hydralazine HCl 10 mg 08/01/18 17:47 08/11/18 09:03 Apresoline IV 10 mg TID PRN Administration Hypertension Heparin Sodium/Sodium Chloride 25,000 unit in 500 mls @ 14 mls/hr 08/06/18 06:30 08/11/18 14:10 Heparin/ 0.45% Nacl-25,000 Unit/500 Ml IV 1,200 units/hr TITR [facility] 24 mls/hr Titration Protocol 700 UNITS/HR Insulin Glargine 5 units 08/11/18 22:00 08/11/18 22:28 Lantus SUB-Q 5 units QHS [facility] Administration Insulin Human Lispro 0 unit 08/03/18 12:00 08/11/18 22:30 Humalog SUB-Q 3 unit ACHS [facility] Administration Protocol Loperamide HCl 2 mg 08/06/18 14:19 Imodium PO Q2H PRN Diarrhea Metoprolol Tartrate 25 mg 08/05/18 22:00 08/11/18 22:27 Lopressor PO 25 mg BID [facility] Administration Multivitamins 1 each 08/07/18 12:00 08/11/18 09:02 Theragran Tab PO 1 each QDAY [facility] Administration Pantoprazole Sodium 40 mg 08/06/18 10:00 08/11/18 09:02 Protonix PO 40 mg DAILY [facility] Administration Sodium Bicarbonate 1,300 mg 08/10/18 22:00 08/11/18 22:28 Sodium Bicarbonate PO 1,300 mg BID [facility]LI Administration Sodium Chloride 10 ml 08/01/18 22:00 08/11/18 22:28 Sodium Chloride Flush Syringe 10 Ml IV 10 ml BID [facility] Administration Sodium Chloride 10 ml 08/01/18 17:42 Sodium Chloride Flush Syringe 10 Ml IV PRN PRN LINE FLUSH Temazepam 15 mg 08/11/18 22:09 Restoril PO QHS PRN Sleep Thiamine HCl 100 mg 08/07/18 12:00 08/11/18 09:02 Vitamin B-1 PO 100 mg QDAY [facility] Administration Warfarin Sodium 7.5 mg 08/07/18 17:00 08/11/18 17:43 Coumadin PO 7.5 mg DAILY@1700 [facility] Administration Protocol
[2018-08-12] MEDS: HumaLOG SUB-Q SCH ×4 (09:00→22:10)
[2018-08-12] MEDS: PROTONIX PO SCH (10:25)
[2018-08-12] MEDS: SODIUM BICARBONATE PO SCH ×2 (10:25→21:40)
[2018-08-12] MEDS: THERAGRAN Tab PO SCH (10:25)
[2018-08-12] MEDS: VITAMIN B-1 PO SCH (10:25)
[2018-08-12] MEDS: TYLENOL PO PRN (10:25)
[2018-08-12] MEDS: FOLVITE PO SCH (10:25)
[2018-08-12] MEDS: LOPRESSOR PO SCH ×2 (10:25→21:40)
[2018-08-12] MEDS: SODIUM CHLORIDE FLUSH SYRINGE 10 ML IV SCH ×2 (10:26→22:00)
[2018-08-12] MEDS ORDERED: LASIX IV STA (12:36)
[2018-08-12] MEDS: HEPARIN/ 0.45% NACL-25,000 UNIT/500 ML 25,000 UNIT/500 ML BAG IV SCH (14:41)
--- NOTE | 2018-08-12 14:41 | Progress Note ---
Assessment and Plan Assessment and plan: 48 YO Female with HTN, IL, Cardiac Arrest, CAD, Malnutrition, DM, GERD, Medication Noncompliance presents to ED for evaluation. Pt is confused and lethargic at time of exam and the patient is unable to provide history. History taken from family as ED staff and EMS. As per report, EMS was notified and upon arrival to the patients motel room- the patient was found to be lethargic with decreased responsiveness. Pt transported to [facility] for further care and evaluation. Upon arrival the patient was found to have DKA, Sepsis, Acidosis, ARF, as well as elevated cardiac enzymes. No reports of fever, chills, CP, Palpitations, Syncope, trauma, falls, or loss of consciousness. Pt admitted to ICU and initiated on DKA and Sepsis Protocols respectively. Pulmonary team consulted, as well as Nephrology team for renal failure, and Cardiology team for elevated troponin. Patient received blood transfusion with EGD showing gastritis. She was noted to have elevated INR and Coumadin was held. The patient was also noted to be WITH HNKH And was treated with insuline for better improvement. she is awaiting therapeutic INR due to mechanical valve prior to discharge. Per information obtained from Pharmacy from [facility]. Patient was noted to have an INR of 2.6 at [place] during her last visit. she was increased to 7.5mg MWF and 5MG TUTHSATSUN to get slightly higer (am unsure what the previous dose was) Her last visit at [place] was Jul. We were also informed that the patient appeared to have started on some type of self prescribed supplement that potentiates the effects of warfarin. Counselling has been provided to her about this. Acute on chronic Blood loss Anemia -transfused I unit of prbc -H/H stable, will monitor Suspected Upper GI bleeding -s/p EGD which showed gastritis -continue PPI Severe Coumadin toxicity -resolved -Discussed with patient patient will also receive extra Coumadin teaching prior to discharge. DM Insulin dependent s/p DKA -BG stable on current insulin therapy, adjust as needed H/o Mechanical Heart Valve -cont coumadin today 2.24 , Coumadin at 7.5. -INR goal of 2.5-3.5, will monitor - Acute delirium, probably 2/2 alcohol withdrawal -on alcohol withdrawal protocol -consider head CT scan if no improvement Acute on CRF with metabolic acidosis -levels improving, will monitor -renal US neg -nephrology on board Elevated troponin, multifactorial susepct 2/2 demand -echo showed EF of 40% with moderate TR and WA -Cardio on board Hx of alcohol abuse -cessation recommended Disp: for d/c when medically stable and INR level is therapeutic On discharge she will continue to follow other [place] [facility]. History Interval history: Patient seen and examined, Resting well. No new complaints today. Hospitalist Physical - Physical exam Narrative exam: General appearance: Present: no acute distress - EENT Eyes: Present: PERRL, EOM intact ENT: hearing intact, clear oral mucosa - Neck Neck: Present: supple - Respiratory Respiratory effort: normal Respiratory: bilateral: CTA - Cardiovascular Rhythm: regular Heart Sounds: Present: S1 & S2, click present. Well-healed surgical scar pres ent - Extremities Extremity abnormal: edema (in BLE) - Abdominal General gastrointestinal: soft, non-tender, non-distended, normal bowel sounds - Neurologic Neurologic: CNII-XII intact - Constitutional Vitals: Temp Pulse Resp BP Pulse Ox 97.7 F 90 16 167/90 96 08/12/18 04:13 08/12/18 04:13 08/12/18 04:13 08/12/18 04:13 08/12/18 04:13 General appearance: Present: no acute distress Results - Labs CBC & Chem 7: 08/12/18 04:43 08/12/18 04:43 Labs: Laboratory Last Values WBC 7.2 K/mm3 (4.5-11.0) 08/11/18 06:33 RBC 2.68 M/mm3 (3.65-5.03) L 08/11/18 06:33 Hgb 8.8 gm/dl (10.1-14.3) L 08/12/18 04:43 Hct 27.1 % (30.3-42.9) L 08/12/18 04:43 MCV 85 fl (79-97) 08/11/18 06:33 MCH 29 pg (28-32) 08/11/18 06:33 MCHC 34 % (30-34) 08/11/18 06:33 RDW 20.4 % (13.2-15.2) H 08/11/18 06:33 Plt Count 393 K/mm3 (140-440) 08/12/18 04:43 Lymph % (Auto) 24.9 % (13.4-35.0) 08/09/18 06:11 Forrest % (Auto) Director Of Ancillary Services 08/11/18 06:33 Eos % (Auto) 3.1 % (0.0-4.3) 08/10/18 04:00 Baso % (Auto) 0.7 % (0.0-1.8) 08/09/18 06:11 Lymph # 2.3 K/mm3 (1.2-5.4) 08/09/18 06:11 Forrest # 1.1 K/mm3 (0.0-0.8) H 08/10/18 04:00 Eos # 0.2 K/mm3 (0.0-0.4) 08/10/18 04:00 Baso # 0.1 K/mm3 (0.0-0.1) 08/10/18 04:00 Add Manual Diff Complete 08/11/18 06:33 Total Counted 100 08/11/18 06:33 Seg Neutrophils % 62.1 % (40.0-70.0) 08/10/18 04:00 Seg Neuts % (Manual) 75.0 % (40.0-70.0) H 08/11/18 06:33 Band Neutrophils % 0 % 08/11/18 06:33 Lymphocytes % (Manual) 12.0 % (13.4-35.0) L 08/11/18 06:33 Reactive Lymphs % (Man) 0 % 08/11/18 06:33 Monocytes % (Manual) 11.0 % (0.0-7.3) H 08/11/18 06:33 Eosinophils % (Manual) 0 % (0.0-4.3) 08/11/18 06:33 Basophils % (Manual) 0 % (0.0-1.8) 08/11/18 06:33 Metamyelocytes % 0 % 08/11/18 06:33 Myelocytes % 2.0 % 08/11/18 06:33 Promyelocytes % 0 % 08/11/18 06:33 Blast Cells % 0 % 08/11/18 06:33 Nucleated RBC % 1.0 % (0.0-0.9) H 08/11/18 06:33 Seg Neutrophils # 4.6 K/mm3 (1.8-7.7) 08/10/18 04:00 Seg Neutrophils # Man 5.4 K/mm3 (1.8-7.7) 08/11/18 06:33 Band Neutrophils # 0.0 K/mm3 08/11/18 06:33 Lymphocytes # (Manual) 0.9 K/mm3 (1.2-5.4) L 08/11/18 06:33 Abs React Lymphs (Man) 0.0 K/mm3 08/11/18 06:33 Monocytes # (Manual) 0.8 K/mm3 (0.0-0.8) 08/11/18 06:33 Eosinophils # (Manual) 0.0 K/mm3 (0.0-0.4) 08/11/18 06:33 Basophils # (Manual) 0.0 K/mm3 (0.0-0.1) 08/11/18 06:33 Metamyelocytes # 0.0 K/mm3 08/11/18 06:33 Myelocytes # 0.1 K/mm3 08/11/18 06:33 Promyelocytes # 0.0 K/mm3 08/11/18 06:33 Blast Cells # 0.0 K/mm3 08/11/18 06:33 WBC Morphology Not Reportable 08/11/18 06:33 Hypersegmented Neuts Not Reportable 08/11/18 06:33 Hyposegmented Neuts Not Reportable 08/11/18 06:33 Hypogranular Neuts Not Reportable 08/11/18 06:33 Smudge Cells Not Reportable 08/11/18 06:33 Toxic Granulation Not Reportable 08/11/18 06:33 Toxic Vacuolation Not Reportable 08/11/18 06:33 Dohle Bodies Not Reportable 08/11/18 06:33 Pelger-Huet Anomaly Not Reportable 08/11/18 06:33 Mary Rods Not Reportable 08/11/18 06:33 Platelet Estimate Consistent w auto 08/11/18 06:33 Clumped Platelets Not Reportable 08/11/18 06:33 Plt Clumps, EDTA Not Reportable 08/11/18 06:33 Large Platelets Not Reportable 08/11/18 06:33 Giant Platelets Not Reportable 08/11/18 06:33 Platelet Satelliting Not Reportable 08/11/18 06:33 Plt Morphology Comment Not Reportable 08/11/18 06:33 RBC Morphology Not Reportable 08/11/18 06:33 Dimorphic RBCs Not Reportable 08/11/18 06:33 Polychromasia Not Reportable 08/11/18 06:33 Hypochromasia Few 08/11/18 06:33 Poikilocytosis 1+ 08/11/18 06:33 Anisocytosis 1+ 08/11/18 06:33 Microcytosis 1+ 08/11/18 06:33 Macrocytosis Not Reportable 08/11/18 06:33 Spherocytes Not Reportable 08/11/18 06:33 Pappenheimer Bodies Not Reportable 08/11/18 06:33 Sickle Cells Not Reportable 08/11/18 06:33 Target Cells Not Reportable 08/11/18 06:33 Tear Drop Cells Not Reportable 08/11/18 06:33 Ovalocytes Few 08/11/18 06:33 Helmet Cells Not Reportable 08/11/18 06:33 Land[place]on Bodies Not Reportable 08/11/18 06:33 [place] Rings Not Reportable 08/11/18 06:33 Jerri Cells Not Reportable 08/11/18 06:33 Bite Cells Not Reportable 08/11/18 06:33 Crenated Cell Not Reportable 08/11/18 06:33 Elliptocytes Not Reportable 08/11/18 06:33 Acanthocytes (Spur) Not Reportable 08/11/18 06:33 Rouleaux Not Reportable 08/11/18 06:33 Hemoglobin C Crystals Not Reportable 08/11/18 06:33 Schistocytes Not Reportable 08/11/18 06:33 Malaria parasites Not Reportable 08/11/18 06:33 Michael Bodies Not Reportable 08/11/18 06:33 Hem Pathologist Commnt No 08/11/18 06:33 PT 26.3 Sec. (12.2-14.9) H 08/12/18 04:43 INR 2.24 (0.87-1.13) H 08/12/18 04:43 APTT 27.0 Sec. (24.2-36.6) 08/06/18 11:55 Heparin Anti-Xa Level 0.40 U.I./ml (0.3-0.7) 08/11/18 19:48 VBG pH 6.903 (7.320-7.420) L* 08/01/18 16:17 Sodium 138 mmol/L (137-145) 08/12/18 04:43 Potassium 4.1 mmol/L (3.6-5.0) 08/12/18 04:43 Chloride 104.1 mmol/L (98-107) 08/12/18 04:43 Carbon Dioxide 21 mmol/L (22-30) L 08/12/18 04:43 Anion Gap 17 mmol/L 08/12/18 04:43 BUN 30 mg/dL (7-17) H 08/12/18 04:43 Creatinine 1.7 mg/dL (0.7-1.2) H 08/12/18 04:43 Estimated GFR 39 ml/min 08/12/18 04:43 BUN/Creatinine Ratio 18 % 08/12/18 04:43 Glucose 241 mg/dL (65-100) H 08/12/18 04:43 POC Glucose 251 (70-105) H 08/12/18 12:35 Lactic Acid 1.90 mmol/L (0.7-2.0) 08/03/18 09:41 Calcium 8.1 mg/dL (8.4-10.2) L 08/12/18 04:43 Phosphorus 3.30 mg/dL (2.5-4.5) D 08/04/18 05:31 Magnesium 2.10 mg/dL (1.7-2.3) 08/04/18 05:31 Iron 97 ug/dL (37-170) 08/04/18 19:22 TIBC 258 mcg/dL (250-450) 08/04/18 19:22 Ferritin 258.8 ng/mL (13.0-400.0) 08/04/18 19:22 Total Bilirubin 0.40 mg/dL (0.1-1.2) 08/04/18 09:38 Direct Bilirubin < 0.2 mg/dL (0-0.2) 08/04/18 09:38 Indirect Bilirubin 0.2 mg/dL 08/04/18 09:38 AST 127 units/L (5-40) H 08/04/18 09:38 ALT 40 units/L (7-56) 08/04/18 09:38 Alkaline Phosphatase 262 units/L (35-129) H 08/04/18 09:38 Troponin T 0.079 ng/mL (0.00-0.029) H D 08/03/18 08:20 NT-Pro-B Natriuret Pep 81324 pg/mL (0-450) H 08/11/18 09:19 Total Protein 4.8 g/dL (6.3-8.2) L 08/04/18 09:38 Albumin 2.7 g/dL (3.9-5) L 08/04/18 09:38 Albumin/Globulin Ratio 1.3 % 08/04/18 09:38 Triglycerides 279 mg/dL (2-149) H 08/01/18 16:17 Cholesterol 229 mg/dL (50-199) H 08/01/18 16:17 LDL Cholesterol Direct 154 mg/dL (50-130) H 08/01/18 16:17 HDL Cholesterol 47 mg/dL (40-59) 08/01/18 16:17 Cholesterol/HDL Ratio 4.87 % 08/01/18 16:17 Lipase 43 units/L (13-60) 08/01/18 16:17 Vitamin B12 > 2000 pg/mL (211-911) H 08/04/18 19:36 Folate 8.75 ng/mL (7.3-26.0) 08/04/18 19:36 Urine Color Yellow (Yellow) 08/01/18 17:15 Urine Turbidity Cloudy (Clear) 08/01/18 17:15 Urine pH 5.0 (5.0-7.0) 08/01/18 17:15 Ur Specific [place] 1.021 (1.003-1.030) 08/01/18 17:15 Urine Protein 100 mg/dl mg/dL (Negative) 08/01/18 17:15 Urine Glucose (UA) >=500 mg/dL (Negative) 08/01/18 17:15 Urine Ketones 20 mg/dL (Negative) 08/01/18 17:15 Urine Blood Mod (Negative) 08/01/18 17:15 Urine Nitrite Neg (Negative) 08/01/18 17:15 Urine Bilirubin Neg (Negative) 08/01/18 17:15 Urine Urobilinogen < 2.0 mg/dL (<2.0) 08/01/18 17:15 Ur Leukocyte Esterase Neg (Negative) 08/01/18 17:15 Urine WBC (Auto) 17.0 /HPF (0.0-6.0) H 08/01/18 17:15 Urine RBC (Auto) 4.0 /HPF (0.0-6.0) 08/01/18 17:15 U Epithel Cells (Auto) 23.0 /HPF (0-13.0) H 08/01/18 17:15 Urine Bacteria (Auto) 1+ /HPF (Negative) 08/01/18 17:15 Urine Mucus Few /HPF 08/01/18 17:15 Urine Yeast (Budding) 2+ /HPF 08/01/18 17:15 Urine Creatinine 45.9 mg/dL (0.1-20.0) H 08/01/18 Unknown Urine Sodium 23 mmol/L 08/01/18 Unknown Influenza A (Rapid) Negative (Negative) 08/04/18 05:30 Influenza B (Rapid) Negative (Negative) 08/04/18 05:30 Blood Type O POSITIVE 08/03/18 09:38 Antibody Screen Negative 08/03/18 09:38 Crossmatch See Detail 08/03/18 09:38 Nutrition/Malnutrition Assess - Dietary Evaluation Nutrition/Malnutrition Findings: Nutrition Notes Start: 08/02/18 10:23 Freq: Status: Active Protocol: Document 08/10/18 15:10 RM (Rec: 08/10/18 15:15 RM [id number]) Nutrition Notes Initial or Follow up Reassessment Current Diagnosis Coronary Artery Disease, Diabetes,Hypertension,Stroke Other Pertinent Diagnosis DKA, GERD Current Diet Cardiac/Consistent CHO Labs/Tests K 5.9, BG 358 Pertinent Medications Reviewed Height 5 ft 4 in Weight 60.45 kg [place] Body Weight (kg) 54.54 BMI 22.8 Subjective/Other Information Pt stated that she eating all of her meals and drinking the Nepro as snacks. Percent of energy/protein needs met: 100%/100% Burn Absent Trauma Absent #1 Nutrition Diagnosis Inadequate oral intake As Evidenced by Signs and Symptoms pt meeting 100% of calorie and protein needs Diagnosis Progress(for reassessment Resolved documentation) Is patient on ventilator? No Is Patient Ambulatory and/or Out of Bed No REE-([place]-St. Jeor-confined to bed) [phone] Calculation Used for Recommendations [place] Jeor Additional Notes PRO: 48-60g (0.8-1 g/kg) Fluid: 1mL/hr Nutrition Intervention Add Supplement/Snack (indicate name/kcal Nepro 1 daily /protein ) Provides kCal: 450 Provides Protein (gm) 19 Goal #1 Continue to meet at least 75% of calorie and protein needs via PO and ONS intakes Anticipated Discharge Needs: Cardiac/Consistent CHO Follow-Up By: 08/17/18 Additional Comments Follow for PO and ONS intakes
--- NOTE | 2018-08-12 17:23 | Progress Note ---
Assessment and Plan - Patient Problems (1) ASHELY (acute kidney injury) Current Visit: Yes Status: Acute Plan to address problem: Acute Kidney injury : - creatinine 1.7mg/dl - creatinine appears to have plateaued. - I reviewed renal US with small kidney cyst , normal size - urinalysis with proteinuria - likely underlying DM nephropathy -Does appear to have some volume overload we will give a dose of diuretic 40 mg IV Lasix -May need to Continue oral diuretics on discharge - Avoid Nephrotoxic meds. - Strict input and output . (2) Hyperkalemia, diminished renal excretion Current Visit: Yes Status: Acute Plan to address problem: Hyperkalemia resolved - likely related to hyperglycemia , potassium supplementation and CKD -Discontinue florinef for now -Received one time dose of kayexalate - stop potassium phosphate supplementation Intravenous fluids have been discontinued (3) Diabetes 1.5, managed as type 1 Current Visit: No Status: Chronic Plan to address problem: Diabetes Mellitus type 1.5 - reports she is on 5 units of lantus bid at home - elevated fingersticks with hyperglycemia during this admission - Will need increased insulin - Monitor fingersticks. (4) Metabolic acidosis Current Visit: Yes Status: Acute Plan to address problem: Metabolic acidosis - setting of hyperglycemia - elevated anion gap - Will need to increase insulin dose to maintain euglycemia - Defer to primary team -We will discontinue sodium bicarbonate to 1300mg bid given edema -Continue diuretics. Subjective Principal diagnosis: [facility] valve - coagulation issue Interval history: 48 year old with medical history of mechanical heart valve on anticoagulation , HTN , DM type II admitted with DKA and Acute kidney injury Patient seen today She's anxious to be discharged INR today is 2.24 As worsening lower extremity edema with intravenous fluids on admission We'll give diuretics today Objective - Vital Signs Vital signs: Vital Signs - 12hr 08/12/18 10:00 Pulse Rate 85 - General Appearance General appearance: well-developed, well-nourished EENT: ATNC, PERRL Neck: JVD Respiratory: Present: Decreased Breath Sounds (imbalance, so) Cardiology: regular, S1S2 Gastrointestinal: normal, normoactive bowel sounds Integumentary: no rash Neurologic: no focal deficit, alert and oriented x3, CN 3-12 intact Musculoskeletal: other (edema) Psychiatric: mood/affect appropriate - Lab 08/12/18 04:43 08/12/18 04:43 Most recent lab results Calcium 8.1 mg/dL (8.4-10.2) L 08/12/18 04:43 Phosphorus 3.30 mg/dL (2.5-4.5) D 08/04/18 05:31 Magnesium 2.10 mg/dL (1.7-2.3) 08/04/18 05:31 Urine Creatinine 45.9 mg/dL (0.1-20.0) H 08/01/18 Unknown Urine Sodium 23 mmol/L 08/01/18 Unknown - Imaging Chest x-ray: image reviewed (I reviewed chest x-ray with some cardiomegaly and some increased interstitial markings) Medications & Allergies - Medications Allergies/Adverse Reactions: Allergies No Known Allergies Allergy (Verified 12/03/16 23:01) Home Medications: Home Medications Medication Instructions Recorded Confirmed Last Taken Type Metoprolol [Lopressor TAB] 25 mg PO BID #60 tablet 12/29/16 08/11/18 Unknown Rx Famotidine [Pepcid] 20 mg PO DAILY #30 tablet 02/04/17 08/07/18 Unknown Rx Furosemide [Lasix TAB] 40 mg PO 0600,1800 #60 tablet 02/04/17 08/07/18 Unknown Rx Insulin NPH/Regular [NovoLIN 70/30] 18 unit SQ BIDDIAB #1 vial 02/04/17 08/07/18 Unknown Rx Metoprolol [Lopressor TAB] 50 mg PO TID #90 tablet 02/04/17 08/07/18 Unknown Rx Coumadin 5 mg PO DAILY 08/02/18 08/11/18 Unknown History Active Medications: Generic Name Dose Route Start Last Admin Trade Name Freq PRN Reason Stop Dose Admin Acetaminophen 650 mg 08/10/18 14:36 08/12/18 10:25 Tylenol PO 650 mg Q4H PRN Administration Pain, Moderate (4-6) Albuterol 2.5 mg 08/01/18 17:42 Proventil IH Q3HRT PRN Shortness Of Breath Dextrose 0 ml 08/01/18 17:42 08/08/18 07:02 D50w (25gm) Syringe IV 50 ml PRN PRN Administration Hypoglycemia Folic Acid 1 mg 08/07/18 12:00 08/12/18 10:25 Folvite PO 1 mg QDAY ULI Administration Hydralazine HCl 10 mg 08/01/18 17:47 08/11/18 09:03 Apresoline IV 10 mg TID PRN Administration Hypertension Heparin Sodium/Sodium Chloride 25,000 unit in 500 mls @ 14 mls/hr 08/06/18 06:30 08/12/18 14:41 Heparin/ 0.45% Nacl-25,000 Unit/500 Ml IV 1,200 units/hr TITR ULI 24 mls/hr Administration Protocol 700 UNITS/HR Insulin Glargine 5 units 08/11/18 22:00 08/11/18 22:28 Lantus SUB-Q 5 units QHS ULI Administration Insulin Human Lispro 0 unit 08/03/18 12:00 08/12/18 12:53 Humalog SUB-Q 3 unit ACHS ULI Administration Protocol Loperamide HCl 2 mg 08/06/18 14:19 Imodium PO Q2H PRN Diarrhea Metoprolol Tartrate 25 mg 08/05/18 22:00 08/12/18 10:25 Lopressor PO 25 mg BID ULI Administration Multivitamins 1 each 08/07/18 12:00 08/12/18 10:25 Theragran Tab PO 1 each QDAY ULI Administration Pantoprazole Sodium 40 mg 08/06/18 10:00 08/12/18 10:25 Protonix PO 40 mg DAILY ULI Administration Sodium Bicarbonate 1,300 mg 08/10/18 22:00 08/12/18 10:25 Sodium Bicarbonate PO 1,300 mg BID ULI Administration Sodium Chloride 10 ml 08/01/18 22:00 08/12/18 10:26 Sodium Chloride Flush Syringe 10 Ml IV 10 ml BID ULI Administration Sodium Chloride 10 ml 08/01/18 17:42 Sodium Chloride Flush Syringe 10 Ml IV PRN PRN LINE FLUSH Thiamine HCl 100 mg 08/07/18 12:00 08/12/18 10:25 Vitamin B-1 PO 100 mg QDAY ULI Administration Warfarin Sodium 7.5 mg 08/07/18 17:00 08/11/18 17:43 Coumadin PO 7.5 mg DAILY@1700 ULI Administration Protocol Zolpidem Tartrate 5 mg 08/12/18 22:00 Ambien PO QHS PRN Sleep
[2018-08-12] MEDS: COUMADIN PO SCH (18:20)
[2018-08-12] MEDS ORDERED: AMBIEN PO PRN (22:00)
[2018-08-12] MEDS: LANTUS SUB-Q SCH (22:10)
[2018-08-13] MEDS: HEPARIN/ 0.45% NACL-25,000 UNIT/500 ML 25,000 UNIT/500 ML BAG IV SCH (00:08)
[2018-08-13 08:29] LABS: INR 3.02 (0.87-1.13)
--- NOTE | 2018-08-13 09:10 | Hem/Onc Progress Note ---
Assessment and Plan 1. h/o Elevated INR secondary to Coumadin for mechanical mitral valve. The INR was elevated. The patient received blood transfusion. The patient had hematemesis. GI has been consulted. 2. Anemia, transfusion given. 3. Diabetic ketoacidosis. 4. Admitted for confusion. 5. Treated for sepsis. 6. Renal impairment. 7. Pharmacy will dose the Coumadin at this time INR. We will observe. 8. I will follow the patient during inpatient stay. inr 2.4 - as per pharmacy - vit k was not given - but based on the trend it appears it was given repeat INR - coumadin 5 mg for now - pharmacy will try to call [facility] to know how many mg coumadin pt is on pt says she took 1 and 1 and half tab a day 08/06/2018 iv heparin - as inr low - pt must have got vit k coumadin - pharmacy to dose s/p egd 08/07 - inr low - iv heparin - d/w RN reg anti Xa level 08/08 - d/w dr caceres 08/09 - inr not therapeutic - pharmacy dosing - anemia - s/p transfusion 08/10 - inr - 1.8- d/w dr caceres 08/11 - inr not targetted 2.5-3.5 - clinically stable 08/12 - d/w dr caceres 08/13 - d/w dr caceres - inr 3 - pt prefers [facility] inr clinic oral iron OP follow up offered to pt for anemia - Patient Problems (1) Coagulopathy Current Visit: Yes Status: Acute Subjective Date of service: 08/13/18 Principal diagnosis: coagulation issues Interval history: feeling good - wants to go home Objective - Constitutional Vitals: Last Vital Signs Temp 98.7 F 08/13/18 08:02 Pulse 87 08/13/18 08:02 Resp 18 08/13/18 08:02 BP 162/91 08/13/18 08:02 Pulse Ox 99 08/13/18 08:02 Pain Intensity (0-10): denies any pain General appearance: no acute distress Performance status: 2- selfcare, ambulatory - EENT Eyes: EOM intact ENT: clear oral mucosa Lymph node exam: negative cervical - Neck Neck: normal ROM - Respiratory Respiratory effort: Positive: normal Respiratory: bilateral: CTA - Cardiovascular Heart Sounds: Present: S1 & S2 Extremities: No edema - Gastrointestinal General gastrointestinal: Present: soft, non-tender Rectal Exam: deferred - Genitourinary Female genitourinary: Present: deferred - Integumentary Integumentary: warm - Musculoskeletal Musculoskeletal: strength equal bilaterally - Neurologic Neurologic: moves all extremities - Labs Lab Results: Laboratory Results - last 24 hr 08/12/18 08/12/18 08/12/18 12:35 16:51 20:00 PT INR Heparin Anti-Xa Level 0.33 Sodium Potassium Chloride Carbon Dioxide Anion Gap BUN Creatinine Estimated GFR BUN/Creatinine Ratio Glucose POC Glucose 251 H 235 H Calcium 08/12/18 08/13/18 08/13/18 21:51 07:18 07:18 PT 33.4 H INR 3.02 H Heparin Anti-Xa Level Sodium 143 Potassium 4.6 Chloride 106.7 Carbon Dioxide 23 Anion Gap 18 BUN 24 H Creatinine 1.5 H Estimated GFR 45 BUN/Creatinine Ratio 16 Glucose 164 H POC Glucose 260 H Calcium 8.0 L 08/13/18 07:26 PT INR Heparin Anti-Xa Level Sodium Potassium Chloride Carbon Dioxide Anion Gap BUN Creatinine Estimated GFR BUN/Creatinine Ratio Glucose POC Glucose 169 H Calcium Medications & Allergies - Medications Allergies/Adverse Reactions: Allergies No Known Allergies Allergy (Verified 12/03/16 23:01) Home Medications: Home Medications Medication Instructions Recorded Confirmed Last Taken Type Metoprolol [Lopressor TAB] 25 mg PO BID #60 tablet 12/29/16 08/11/18 Unknown Rx Famotidine [Pepcid] 20 mg PO DAILY #30 tablet 02/04/17 08/07/18 Unknown Rx Metoprolol [Lopressor TAB] 50 mg PO TID #90 tablet 02/04/17 08/07/18 Unknown Rx Coumadin 5 mg PO .ASDIR #30 08/13/18 Unknown Rx Ferrous Sulfate [Feosol 325 MG tab] 325 mg PO BID #60 tablet 08/13/18 Unknown Rx Folic Acid [Folvite] 1 mg PO QDAY #30 tablet 08/13/18 Unknown Rx Furosemide [Lasix TAB] 40 mg PO DAILY #30 tablet 08/13/18 08/07/18 Unknown Rx Insulin Glargine [Lantus VIAL] 5 units SUB-Q BIDDIAB 30 Days 08/13/18 Unknown Rx units Multivitamin Tab [Multiple Vitamin 1 each PO QDAY #30 tablet 08/13/18 Unknown Rx TAB (Theragran)] Pantoprazole [Protonix TAB] 40 mg PO DAILY #30 tablet 08/13/18 Unknown Rx Thiamine [Vitamin B-1] 100 mg PO QDAY #30 tablet 08/13/18 Unknown Rx Warfarin [Coumadin] 7.5 mg PO .ASDIR 30 Days tablet 08/13/18 Unknown Rx Active Medications: Generic Name Dose Route Start Last Admin Trade Name Freq PRN Reason Stop Dose Admin Acetaminophen 650 mg 08/10/18 14:36 08/12/18 10:25 Tylenol PO 650 mg Q4H PRN Administration Pain, Moderate (4-6) Albuterol 2.5 mg 08/01/18 17:42 Proventil IH Q3HRT PRN Shortness Of Breath Dextrose 0 ml 08/01/18 17:42 08/08/18 07:02 D50w (25gm) Syringe IV 50 ml PRN PRN Administration Hypoglycemia Folic Acid 1 mg 08/07/18 12:00 08/12/18 10:25 Folvite PO 1 mg QDAY ULI Administration Hydralazine HCl 10 mg 08/01/18 17:47 08/11/18 09:03 Apresoline IV 10 mg TID PRN Administration Hypertension Heparin Sodium/Sodium Chloride 25,000 unit in 500 mls @ 14 mls/hr 08/06/18 06:30 08/13/18 00:08 Heparin/ 0.45% Nacl-25,000 Unit/500 Ml IV 1,200 units/hr TITR ULI 24 mls/hr Administration Protocol 700 UNITS/HR Insulin Glargine 5 units 08/11/18 22:00 08/12/18 22:10 Lantus SUB-Q 5 units QHS ULI Administration Insulin Human Lispro 0 unit 08/03/18 12:00 08/12/18 22:10 Humalog SUB-Q 4 unit ACHS ULI Administration Protocol Loperamide HCl 2 mg 08/06/18 14:19 Imodium PO Q2H PRN Diarrhea Metoprolol Tartrate 25 mg 08/05/18 22:00 08/12/18 21:40 Lopressor PO 25 mg BID ULI Administration Multivitamins 1 each 08/07/18 12:00 08/12/18 10:25 Theragran Tab PO 1 each QDAY ULI Administration Pantoprazole Sodium 40 mg 08/06/18 10:00 08/12/18 10:25 Protonix PO 40 mg DAILY ULI Administration Sodium Bicarbonate 1,300 mg 08/10/18 22:00 08/12/18 21:40 Sodium Bicarbonate PO 1,300 mg BID ULI Administration Sodium Chloride 10 ml 08/01/18 22:00 08/12/18 22:00 Sodium Chloride Flush Syringe 10 Ml IV 10 ml BID ULI Administration Sodium Chloride 10 ml 08/01/18 17:42 Sodium Chloride Flush Syringe 10 Ml IV PRN PRN LINE FLUSH Thiamine HCl 100 mg 08/07/18 12:00 08/12/18 10:25 Vitamin B-1 PO 100 mg QDAY ULI Administration Warfarin Sodium 7.5 mg 08/07/18 17:00 08/12/18 18:20 Coumadin PO 7.5 mg DAILY@1700 ULI Administration Protocol Zolpidem Tartrate 5 mg 08/12/18 22:00 08/12/18 21:40 Ambien PO 5 mg QHS PRN Administration Sleep
--- NOTE | 2018-08-13 09:30 | Discharge Summary ---
Providers - Providers Date of Admission: 08/01/18 17:42 Attending physician: ONEIDA SNYDER MD 08/01/18 Consult to Cardiac Rehabilitation [CONS] Routine Reason For Exam: Phase I 08/01/18 20:04 Consult to Cardiology [CONS] Routine Consulting Provider: THEA LOPEZ Reason For Exam: chest pain 08/01/18 20:09 Consult to Physician [CONS] Routine Comment: Consulting Provider: JUSTIN ECKERT Physician Instructions: Reason For Exam: renal failure 08/04/18 11:13 Consult to Physician [CONS] Routine Comment: Consulting Provider: LUPILLO UMNOZ Physician Instructions: Reason For Exam: gi bleed Consult to Physician [CONS] Routine Comment: Consulting Provider: CHEKO MIRANDA Physician Instructions: Reason For Exam: coagulopathy 08/06/18 14:19 Physical Therapy Evaluation and Treat [CONS] Routine Comment: Reason For Exam: physical deconditioning Primary care physician: [employer] Hospitalization Reason for admission: COUMADIN TOXICITY Condition: Stable Hospital course: 48 YO Female with HTN, NV, Cardiac Arrest, CAD, Malnutrition, DM, GERD, Medication Noncompliance presents to ED for evaluation. Pt is confused and lethargic at time of exam and the patient is unable to provide history. History taken from family as ED staff and EMS. As per report, EMS was notified and upon arrival to the patients motel room- the patient was found to be lethargic with decreased responsiveness. Pt transported to [facility] for further care and evaluation. Upon arrival the patient was found to have DKA, Sepsis, Acidosis, ARF, as well as elevated cardiac enzymes. No reports of fever, chills, CP, Palpitations, Syncope, trauma, falls, or loss of consciousness. Pt admitted to ICU and initiated on DKA and Sepsis Protocols respectively. Pulmonary team consulted, as well as Nephrology team for renal failure, and Cardiology team for elevated troponin. Patient received blood transfusion with EGD showing gastritis. She was noted to have elevated INR and Coumadin was held. The patient was also noted to be WITH HNKH And was treated with insuline for better improvement. she is awaiting therapeutic INR due to mechanical valve prior to discharge. Per information obtained from Pharmacy from [facility]. Patient was noted to have an INR of 2.6 at [facility] during her last visit. she was increased to 7.5mg MWF and 5MG TUTHSATSUN to get slightly higer (am unsure what the previous dose was) Her last visit at [facility] was Jul. We were also informed that the patient appeared to have started on some type of self prescribed supplement that potentiates the effects of warfarin. During hospitalization she had GI eval with PPI recommended, no focal bleeding site was noted. Counselling has been provided to her about this. Patient INR is therapeutic. She will continue to follow at the [facility] and will continue on the 7.5mg MWF and 5mg TUTHSATSUN. I have also offered her to follow with [employer] in respect to the anemia and the information provided. she was educated about coumadin therapy she will follow with nephrology and per nephrology can continue on oral diuretic and have recheck of her renal function. she verbalized understanding. 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: INR 3.03 SECONDARY COAGULOPATHY Acute delirium, probably 2/2 alcohol withdrawal Acute on CRF with metabolic acidosis SECONDARY TO VASOMOTOR NPHROPATHY Elevated troponin, multifactorial susepct 2/2 demand Hx of alcohol abuse - Disposition: DC-01 TO HOME OR SELFCARE Time spent for discharge: 35 MINS Core Measure Documentation - Palliative Care Palliative Care/ Comfort Measures: Not Applicable - Core Measures Any of the following diagnoses?: none Exam - Physical Exam Narrative exam: General appearance: Present: no acute distress - EENT Eyes: Present: PERRL, EOM intact ENT: hearing intact, clear oral mucosa - Neck Neck: Present: supple - Respiratory Respiratory effort: normal Respiratory: bilateral: CTA - Cardiovascular Rhythm: regular Heart Sounds: Present: S1 & S2, click present. Well-healed surgical scar present - Extremities Extremity abnormal: edema (in BLE) - Abdominal General gastrointestinal: soft, non-tender, non-distended, normal bowel sounds - Neurologic Neurologic: CNII-XII intact - Constitutional Vitals: Temp Pulse Resp BP Pulse Ox 98.7 F 87 18 162/91 99 08/13/18 08:02 08/13/18 08:02 08/13/18 08:02 08/13/18 08:02 08/13/18 08:02 Plan Activity: advance as tolerated, fall precautions Diet: low fat Special Instructions: record daily weights, record daily BP diary Follow up with: PRIMARY CAREMD [Primary Care Provider] - 7 Days MAYI JUAN MD [Staff Physician] - 7 Days HCEKO MIRANDA MD [Staff Physician] - 7 Days Forms: Warfarin Discharge Instruction Prescriptions: Coumadin 5 mg PO .ASDIR #30 Warfarin [Coumadin] 7.5 mg PO .ASDIR 30 Days tablet Ferrous Sulfate [Feosol 325 MG tab] 325 mg PO BID #60 tablet Folic Acid [Folvite] 1 mg PO QDAY #30 tablet Insulin Glargine [Lantus VIAL] 5 units SUB-Q BIDDIAB 30 Days units Multivitamin Tab [Multiple Vitamin TAB (Theragran)] 1 each PO QDAY #30 tablet Pantoprazole [Protonix TAB] 40 mg PO DAILY #30 tablet Thiamine [Vitamin B-1] 100 mg PO QDAY #30 tablet
[2018-08-13] MEDS: FOLVITE PO SCH (09:59)
[2018-08-13] MEDS: THERAGRAN Tab PO SCH (09:59)
[2018-08-13] MEDS: PROTONIX PO SCH (09:59)
[2018-08-13] MEDS: SODIUM BICARBONATE PO SCH (09:59)
[2018-08-13] MEDS ORDERED: FEOSOL PO SCH (10:00)
[2018-08-13] MEDS: LOPRESSOR PO SCH (10:00)
[2018-08-13] MEDS: SODIUM CHLORIDE FLUSH SYRINGE 10 ML IV SCH (10:00)
[2018-08-13] MEDS: VITAMIN B-1 PO SCH (10:04)
[2018-08-13] MEDS: HumaLOG SUB-Q SCH ×2 (10:04→13:00)
[2018-08-13 15:17] VITALS: BP 142/78
[2018-08-14] MEDS ORDERED: COZAAR PO SCH (10:00)
== END 2018-08-13 14:51 | disposition home or self-care (01) | DRG 871 ==
LOC: ED 15:51 → CC1 17:42 → 4A 08-04 16:28
PROVIDERS: ADMIT Internal Medicine; ATTEND Internal Medicine
PROC: 30233N1 Transfusion of Nonautologous Red Blood Cells into Peripheral Vein, Percutaneous Approach (ICD-10-PCS; principal; 2018-08-03)
PROC: 0DJ08ZZ Inspection of Upper Intestinal Tract, Via Natural or Artificial Opening Endoscopic (ICD-10-PCS; 2018-08-05)
DX: A41.9 Sepsis, unspecified organism (principal); E11.11 Type 2 diabetes mellitus with ketoacidosis with coma; N17.0 Acute kidney failure with tubular necrosis; G93.41 Metabolic encephalopathy; K29.71 Gastritis, unspecified, with bleeding; E87.1 Hypo-osmolality and hyponatremia; I50.20 Unspecified systolic (congestive) heart failure; I13.0 Hypertensive heart and chronic kidney disease with heart failure and stage 1 through stage 4 chronic kidney disease, or unspecified chronic kidney disease; I42.9 Cardiomyopathy, unspecified; E87.0 Hyperosmolality and hypernatremia; D62 Acute posthemorrhagic anemia; F10.239 Alcohol dependence with withdrawal, unspecified; E87.5 Hyperkalemia; E86.9 Volume depletion, unspecified; E11.22 Type 2 diabetes mellitus with diabetic chronic kidney disease; Y90.0 Blood alcohol level of less than 20 mg/100 ml; E86.0 Dehydration; E83.42 Hypomagnesemia; R79.1 Abnormal coagulation profile; T45.515A Adverse effect of anticoagulants, initial encounter; K21.9 Gastro-esophageal reflux disease without esophagitis; I25.10 Atherosclerotic heart disease of native coronary artery without angina pectoris; N18.9 Chronic kidney disease, unspecified; I25.2 Old myocardial infarction; Z86.74 Personal history of sudden cardiac arrest; Z91.19 Patient's noncompliance with other medical treatment and regimen; Z83.3 Family history of diabetes mellitus; Z82.49 Family history of ischemic heart disease and other diseases of the circulatory system; Z79.899 Other long term (current) drug therapy; Z79.4 Long term (current) use of insulin; Z95.1 Presence of aortocoronary bypass graft; Z95.4 Presence of other heart-valve replacement; Y92.89 Other specified places as the place of occurrence of the external cause; Z71.89 Other specified counseling
CPT/HCPCS: 36415; 71045; 76770; 80048; 80061; 80076; 81001; 82140; 82570; 82607; 82728; 82747; 82805; 82947; 82962; 83550; 83690; 83735; 83880; 84100; 84300; 84484; 85007; 85014; 85018; 85025; 85049; 85520; 85610; 85730; 86850; 86900; 86901; 86920; 87040; 87086; 87400; 93005; 93010; 93306; 96361; 96365; 96375; 96376; G0378; 87502; C9113; J0171; J0360; J0610; J1644; J1815; J1940; J2543; J2704; J3430; J3475; J7030; J7040; J7050; J7070; P9016

== ENCOUNTER 2018-10-07 01:47 | Inpatient (IN) | payer MEDICAID, OTHER ==
[2018-10-07] MEDS ORDERED: SOLU-Medrol IV ONE (02:05)
[2018-10-07] MEDS ORDERED: BENADRYL IV ONE (02:05)
[2018-10-07] MEDS ORDERED: SOLU-Medrol ONE (02:06)
[2018-10-07] MEDS ORDERED: BENADRYL ONE (02:07)
[2018-10-07] MEDS ORDERED: AMIDATE IV ONE (02:10)
[2018-10-07] MEDS ORDERED: ZEMURON IV ONE (02:10)
[2018-10-07] MEDS ORDERED: NACL 0.9% 1000 ML 1,000 ML IV ONE ×2 (02:16→22:03)
--- NOTE | 2018-10-07 02:23 | Emergency Department Report ---
ED Altered Mental Status HPI - General Chief Complaint: Altered Mental Status Stated Complaint: ALTERED MENTAL STATUS Time Seen by Provider: 10/07/18 02:16 Source: EMS Mode of arrival: Stretcher Limitations: Altered Mental Status - History of Present Illness Initial Comments: Patient is 48 years old female with history of carotid disease, CABG, diabetes and hypertension. Patient brought to the emergency room for evaluation of altered mental status. EMS stated that patient was found unresponsive by her family. Initial blood glucose was 19. Patient given dextrose 50 and patient start moving all extremities start having seizure-like activity. Upon arrival to the ER patient is in active seizure. Patient given 3 mg of Ativan with no improvement. Patient intubated by me. MD Complaint: altered mental status, confusion, decreased responsiveness -: unknown - Related Data Previous Rx's Medication Instructions Recorded Last Taken Type Metoprolol [Lopressor TAB] 25 mg PO BID #60 tablet 12/29/16 Unknown Rx Famotidine [Pepcid] 20 mg PO DAILY #30 tablet 02/04/17 Unknown Rx Metoprolol [Lopressor TAB] 50 mg PO TID #90 tablet 02/04/17 Unknown Rx Coumadin 5 mg PO .ASDIR #30 08/13/18 Unknown Rx Ferrous Sulfate [Feosol 325 MG tab] 325 mg PO BID #60 tablet 08/13/18 Unknown Rx Folic Acid [Folvite] 1 mg PO QDAY #30 tablet 08/13/18 Unknown Rx Furosemide [Lasix TAB] 40 mg PO DAILY #30 tablet 08/13/18 Unknown Rx Insulin Glargine [Lantus VIAL] 5 units SUB-Q BIDDIAB 30 Days 08/13/18 Unknown Rx units Multivitamin Tab [Multiple Vitamin 1 each PO QDAY #30 tablet 08/13/18 Unknown Rx TAB (Theragran)] Pantoprazole [Protonix TAB] 40 mg PO DAILY #30 tablet 08/13/18 Unknown Rx Thiamine [Vitamin B-1] 100 mg PO QDAY #30 tablet 08/13/18 Unknown Rx Warfarin [Coumadin] 7.5 mg PO .ASDIR 30 Days tablet 08/13/18 Unknown Rx Allergies Allergy/AdvReac Type Severity Reaction Status Date / Time No Known Allergies Allergy Verified 12/03/16 23:01 ED Review of Systems ROS: Stated complaint: ALTERED MENTAL STATUS Other details as noted in HPI Comment: Unobtainable due to pts medical conditions ED Past Medical Hx - Past Medical History Previous Medical History?: Yes Hx Hypertension: Yes Hx Heart Attack/AMI: Yes (STEMI on arrival to ER, VFIB and Amiodarone used, converted and stable now) Hx Congestive Heart Failure: No Hx Diabetes: Yes Hx Deep Vein Thrombosis: No Hx GERD: Yes Hx Renal Disease: Yes Hx Sickle Cell Disease: No Hx Asthma: No Hx COPD: No Hx HIV: No - Surgical History Hx Coronary Stent: Yes Hx Open Heart Surgery: Yes Hx Pacemaker: No Hx Internal Defibrillator: No - Social History Smoking Status: Unknown if ever smoked - Medications Home Medications: Home Medications Medication Instructions Recorded Confirmed Last Taken Type Metoprolol [Lopressor TAB] 25 mg PO BID #60 tablet 12/29/16 08/11/18 Unknown Rx Famotidine [Pepcid] 20 mg PO DAILY #30 tablet 02/04/17 08/07/18 Unknown Rx Metoprolol [Lopressor TAB] 50 mg PO TID #90 tablet 02/04/17 08/07/18 Unknown Rx Coumadin 5 mg PO .ASDIR #30 08/13/18 Unknown Rx Ferrous Sulfate [Feosol 325 MG tab] 325 mg PO BID #60 tablet 08/13/18 Unknown Rx Folic Acid [Folvite] 1 mg PO QDAY #30 tablet 08/13/18 Unknown Rx Furosemide [Lasix TAB] 40 mg PO DAILY #30 tablet 08/13/18 08/07/18 Unknown Rx Insulin Glargine [Lantus VIAL] 5 units SUB-Q BIDDIAB 30 Days 08/13/18 Unknown Rx units Multivitamin Tab [Multiple Vitamin 1 each PO QDAY #30 tablet 08/13/18 Unknown Rx TAB (Theragran)] Pantoprazole [Protonix TAB] 40 mg PO DAILY #30 tablet 08/13/18 Unknown Rx Thiamine [Vitamin B-1] 100 mg PO QDAY #30 tablet 08/13/18 Unknown Rx Warfarin [Coumadin] 7.5 mg PO .ASDIR 30 Days tablet 08/13/18 Unknown Rx ED Physical Exam - General Limitations: Altered Mental Status General appearance: other (active seizure) - Head Head exam: Present: atraumatic, normocephalic, normal inspection - Eye Eye exam: Present: normal appearance - ENT ENT exam: Present: other (tongue enlargement) - Neck Neck exam: Present: normal inspection - Respiratory Respiratory exam: Present: decreased breath sounds - Cardiovascular Cardiovascular Exam: Present: regular rate, normal rhythm, normal heart sounds - GI/Abdominal GI/Abdominal exam: Present: soft. Absent: distended - Extremities Exam Extremities exam: Present: normal inspection - Neurological Exam Neurological exam: Present: altered - Skin Skin exam: Present: warm - Assessment Assessment Interval: Baseline - Level of Consciousness 1a. Level of Consciousness: coma/unresponsive - LOC Questions 1b. LOC Questions: answers no questions correctly - LOC Command 1c. LOC Commands: performs no tasks correctly - Best Gaze 2. Best Gaze: normal - Visual 3. Visual: no visual loss - Facial Palsy 4. Facial Palsy: normal symmetrical movement - Motor Arm 5a. Motor Arm Left: no drift 5b. Motor Arm Right: no drift - Motor Leg 6a. Motor Leg Left: no drift 6b. Motor Leg Right: no drift - Limb Ataxia 7. Limb Ataxia: absent - Sensory 8. Sensory: coma/unresponsive - Best Language 9. Best Language: coma/unresponsive - Dysarthria 10. Dysarthria: mute/anarrthric - Extinction and Inattention 11. Extinction/Inattention: no abnormality - Scoring Total Score: 14 Stroke Severity: Moderate Stroke ED Course Vital Signs 10/07/18 10/07/18 02:03 02:46 Pulse Rate 106 H Blood Pressure 153/106 O2 Sat by Pulse 100 100 Oximetry - Intubation Time Out Performed: Yes Sedative: Etomidate Paralytic: Vecuronium Laryngoscope: fiberoptic video scope Size: 4 Assist Device Used: fiberoptic device ET Tube Size: 7.5 Tube Secured Location: teeth Tube Placement Confirmation: visualized tube passing t, equal breath sounds bilat, no breath sounds over epi, confirmation by capnometr Patient Tolerated Procedure: well, no complications Intubation Complications: none - Lab Data Result diagrams: 10/07/18 02:43 10/07/18 02:43 Lab Results 10/07/18 10/07/18 10/07/18 Range/Units 01:56 02:20 02:34 WBC (4.5-11.0) K/mm3 RBC (3.65-5.03) M/mm3 Hgb (10.1-14.3) gm/dl Hct (30.3-42.9) % MCV (79-97) fl MCH (28-32) pg MCHC (30-34) % RDW (13.2-15.2) % Plt Count (140-440) K/mm3 Lymph % (Auto) (13.4-35.0) % [place] % (Auto) (0.0-7.3) % Eos % (Auto) (0.0-4.3) % Baso % (Auto) (0.0-1.8) % Lymph # (1.2-5.4) K/mm3 [place] # (0.0-0.8) K/mm3 Eos # (0.0-0.4) K/mm3 Baso # (0.0-0.1) K/mm3 Seg Neutrophils % (40.0-70.0) % Seg Neutrophils # (1.8-7.7) K/mm3 Sodium (137-145) mmol/L Potassium (3.6-5.0) mmol/L Chloride (98-107) mmol/L Carbon Dioxide (22-30) mmol/L Anion Gap mmol/L BUN (7-17) mg/dL Creatinine (0.7-1.2) mg/dL Estimated GFR ml/min BUN/Creatinine Ratio % Glucose (65-100) mg/dL POC Glucose 72 136 H (70-105) Lactic Acid (0.7-2.0) mmol/L Calcium (8.4-10.2) mg/dL Total Bilirubin (0.1-1.2) mg/dL Direct Bilirubin (0-0.2) mg/dL Indirect Bilirubin mg/dL AST (5-40) units/L ALT (7-56) units/L Alkaline Phosphatase (35-129) units/L Ammonia (25-60) umol/L Troponin T (0.00-0.029) ng/mL Total Protein (6.3-8.2) g/dL Albumin (3.9-5) g/dL Albumin/Globulin Ratio % Urine Color Straw (Yellow) Urine Turbidity Clear (Clear) Urine pH 7.0 (5.0-7.0) Ur Specific [place] 1.006 (1.003-1.030) Urine Protein 100 mg/dl (Negative) mg/dL Urine Glucose (UA) Neg (Negative) mg/dL Urine Ketones Neg (Negative) mg/dL Urine Blood Sm (Negative) Urine Nitrite Neg (Negative) Urine Bilirubin Neg (Negative) Urine Urobilinogen < 2.0 (<2.0) mg/dL Ur Leukocyte Esterase Tr (Negative) Urine WBC (Auto) 1.0 (0.0-6.0) /HPF Urine RBC (Auto) 5.0 (0.0-6.0) /HPF U Epithel Cells (Auto) 1.0 (0-13.0) /HPF Hyaline Casts 3 /LPF Urine Mucus Few /HPF Urine Opiates Screen Urine Methadone Screen Ur Barbiturates Screen Ur Phencyclidine Scrn Ur Amphetamines Screen U Benzodiazepines Scrn Urine Cocaine Screen U Marijuana (THC) Screen 10/07/18 10/07/18 10/07/18 Range/Units 02:34 02:43 02:43 WBC 6.6 (4.5-11.0) K/mm3 RBC 4.38 (3.65-5.03) M/mm3 Hgb 10.9 (10.1-14.3) gm/dl Hct 35.0 (30.3-42.9) % MCV 80 (79-97) fl MCH 25 L (28-32) pg MCHC 31 (30-34) % RDW 21.5 H (13.2-15.2) % Plt Count 404 (140-440) K/mm3 Lymph % (Auto) 13.9 (13.4-35.0) % [place] % (Auto) 5.7 (0.0-7.3) % Eos % (Auto) 1.4 (0.0-4.3) % Baso % (Auto) 0.6 (0.0-1.8) % Lymph # 0.9 L (1.2-5.4) K/mm3 [place] # 0.4 (0.0-0.8) K/mm3 Eos # 0.1 (0.0-0.4) K/mm3 Baso # 0.0 (0.0-0.1) K/mm3 Seg Neutrophils % 78.4 H (40.0-70.0) % Seg Neutrophils # 5.2 (1.8-7.7) K/mm3 Sodium 144 (137-145) mmol/L Potassium 4.5 (3.6-5.0) mmol/L Chloride 108.0 H (98-107) mmol/L Carbon Dioxide 21 L (22-30) mmol/L Anion Gap 20 mmol/L BUN 17 (7-17) mg/dL Creatinine 1.5 H (0.7-1.2) mg/dL Estimated GFR 45 ml/min BUN/Creatinine Ratio 11 % Glucose 115 H (65-100) mg/dL POC Glucose (70-105) Lactic Acid (0.7-2.0) mmol/L Calcium 8.7 (8.4-10.2) mg/dL Total Bilirubin 0.70 (0.1-1.2) mg/dL Direct Bilirubin < 0.2 (0-0.2) mg/dL Indirect Bilirubin 0.5 mg/dL AST 51 H (5-40) units/L ALT 35 (7-56) units/L Alkaline Phosphatase 257 H (35-129) units/L Ammonia (25-60) umol/L Troponin T 0.013 (0.00-0.029) ng/mL Total Protein 7.0 (6.3-8.2) g/dL Albumin 3.9 (3.9-5) g/dL Albumin/Globulin Ratio 1.3 % Urine Color (Yellow) Urine Turbidity (Clear) Urine pH (5.0-7.0) Ur Specific [place] (1.003-1.030) Urine Protein (Negative) mg/dL Urine Glucose (UA) (Negative) mg/dL Urine Ketones (Negative) mg/dL Urine Blood (Negative) Urine Nitrite (Negative) Urine Bilirubin (Negative) Urine Urobilinogen (<2.0) mg/dL Ur Leukocyte Esterase (Negative) Urine WBC (Auto) (0.0-6.0) /HPF Urine RBC (Auto) (0.0-6.0) /HPF U Epithel Cells (Auto) (0-13.0) /HPF Hyaline Casts /LPF Urine Mucus /HPF Urine Opiates Screen Presumptive negative Urine Methadone Screen Presumptive negative Ur Barbiturates Screen Presumptive negative Ur Phencyclidine Scrn Presumptive negative Ur Amphetamines Screen Presumptive negative U Benzodiazepines Scrn Presumptive negative Urine Cocaine Screen Presumptive negative U Marijuana (THC) Screen Presumptive positive 10/07/18 10/07/18 Range/Units 02:43 02:43 WBC (4.5-11.0) K/mm3 RBC (3.65-5.03) M/mm3 Hgb (10.1-14.3) gm/dl Hct (30.3-42.9) % MCV (79-97) fl MCH (28-32) pg MCHC (30-34) % RDW (13.2-15.2) % Plt Count (140-440) K/mm3 Lymph % (Auto) (13.4-35.0) % [place] % (Auto) (0.0-7.3) % Eos % (Auto) (0.0-4.3) % Baso % (Auto) (0.0-1.8) % Lymph # (1.2-5.4) K/mm3 [place] # (0.0-0.8) K/mm3 Eos # (0.0-0.4) K/mm3 Baso # (0.0-0.1) K/mm3 Seg Neutrophils % (40.0-70.0) % Seg Neutrophils # (1.8-7.7) K/mm3 Sodium (137-145) mmol/L Potassium (3.6-5.0) mmol/L Chloride (98-107) mmol/L Carbon Dioxide (22-30) mmol/L Anion Gap mmol/L BUN (7-17) mg/dL Creatinine (0.7-1.2) mg/dL Estimated GFR ml/min BUN/Creatinine Ratio % Glucose (65-100) mg/dL POC Glucose (70-105) Lactic Acid 2.40 H* (0.7-2.0) mmol/L Calcium (8.4-10.2) mg/dL Total Bilirubin (0.1-1.2) mg/dL Direct Bilirubin (0-0.2) mg/dL Indirect Bilirubin mg/dL AST (5-40) units/L ALT (7-56) units/L Alkaline Phosphatase (35-129) units/L Ammonia 40.0 (25-60) umol/L Troponin T (0.00-0.029) ng/mL Total Protein (6.3-8.2) g/dL Albumin (3.9-5) g/dL Albumin/Globulin Ratio % Urine Color (Yellow) Urine Turbidity (Clear) Urine pH (5.0-7.0) Ur Specific [place] (1.003-1.030) Urine Protein (Negative) mg/dL Urine Glucose (UA) (Negative) mg/dL Urine Ketones (Negative) mg/dL Urine Blood (Negative) Urine Nitrite (Negative) Urine Bilirubin (Negative) Urine Urobilinogen (<2.0) mg/dL Ur Leukocyte Esterase (Negative) Urine WBC (Auto) (0.0-6.0) /HPF Urine RBC (Auto) (0.0-6.0) /HPF U Epithel Cells (Auto) (0-13.0) /HPF Hyaline Casts /LPF Urine Mucus /HPF Urine Opiates Screen Urine Methadone Screen Ur Barbiturates Screen Ur Phencyclidine Scrn Ur Amphetamines Screen U Benzodiazepines Scrn Urine Cocaine Screen U Marijuana (THC) Screen - EKG Data -: EKG Interpreted by Me EKG shows normal: sinus rhythm Rate: tachycardia Interpretation: no acute changes - Radiology Data Radiology results: report reviewed - Medical Decision Making Patient is 48 years old female with history of carotid disease, CABG, diabetes and hypertension. Patient brought to the emergency room for evaluation of altered mental status. EMS stated that patient was found unresponsive by her family. Initial blood glucose was 19. Patient given dextrose 50 and patient start moving all extremities start having seizure-like activity. Upon arrival to the ER patient is in active seizure. Patient given 3 mg of Ativan with no improvement. Patient intubated by me. Seizure aborted after intubation. Patient is started on propofol. Patient found to have a large tongue with some evidence of angioedema. Patient given Benadryl, Solu-Medrol and Pepcid. Patient found to be hypothermic with a rectal temperature of 92%, huggers applied. I discussed the patient is Dr. Cavanaugh, she agreed to admit the patient to medical service. Critical Care Time: Yes Critical care time in (mins) excluding proc time.: 45 Critical care attestation.: If time is entered above; I have spent that time in minutes in the direct care of this critically ill patient, excluding procedure time. ED Disposition Clinical Impression: Altered mental status, Hypoglycemic coma, Angioedema, Seizures Disposition: OP ADMIT IP TO THIS HOSP Is pt being admited?: Yes Condition: Stable Referrals: NICKI STONE MD [Primary Care Provider] - 3-5 Days
[2018-10-07] MEDS ORDERED: ATIVAN ONE (02:37)
[2018-10-07] MEDS ORDERED: VASELINE LIP THERAPY TP PRN (02:40)
[2018-10-07] MEDS ORDERED: ARTIFICIAL TEARS OPHTH OINT OU PRN (02:40)
[2018-10-07] MEDS ORDERED: DIPRIVAN 10 MG/ML 1,000 MG/100 ML BOTTLE IV ONE (02:47)
[2018-10-07] MEDS ORDERED: NACL 0.9% 1000 ML IV ONE (02:56)
[2018-10-07] MEDS ORDERED: DIPRIVAN 10 MG/ML 1,000 MG/100 ML BOTTLE IV SCH ×2 (03:00→05:55)
[2018-10-07] MEDS ORDERED: ZOSYN/NS 3.375GM/50ML 3.375 GM/50 ML BAG IV ONE (03:15)
[2018-10-07 03:28] LABS: Bilirubin,Urine NEG (Negative); Blood,Urine SM (Negative); Color,Urine Straw (Yellow); Hyaline Casts,Urine 3 /LPF; Mucus,Urine FEW /HPF; Urobilinogen,Urine < 2.0 mg/dL (<2.0)
--- NOTE | 2018-10-07 03:29 | XRay Report ---
PROCEDURE: XR CHEST 1V AP TECHNIQUE: Chest radiograph single view. HISTORY: Altered Mental Status COMPARISONS: May 03, 2018 . FINDINGS: Heart: Normal. There has been open heart surgery. Mediastinum/Vessels: Normal. Lungs/Pleural space: There are right lower lobe infiltrates. There is a right pleural effusion. Ther e is no pneumothorax.. Bony thorax: No acute osseous abnormality. Life support devices: Endotracheal tube is in the mid trachea. NG tube is in the stomach.. IMPRESSION: There are right lower lobe infiltrates. There is a right pleural effusion. There is no pneumothorax.. Endotracheal tube is in the mid trachea. NG tube is in the stomach... This document is electronically signed by Marcos Dutton MD., Oct 07 2018 03:27:03 AM ET
[2018-10-07 03:30] LABS: Basophils % (Auto) 0.6 % (0.0-1.8); Eosinophils # (Auto) 0.1 K/mm3 (0.0-0.4); Eosinophils % (Auto) 1.4 % (0.0-4.3); Hemoglobin 10.9 gm/dl (10.1-14.3); Lymphocytes # (Auto) 0.9 K/mm3 (1.2-5.4); Lymphocytes % (Auto) 13.9 % (13.4-35.0); Mean Corpuscular HGB Conc 31 % (30-34); Mean Corpuscular Volume 80 fl (79-97); Monocytes # (Auto) 0.4 K/mm3 (0.0-0.8); Monocytes % (Auto) 5.7 % (0.0-7.3); Platelet Count 404 K/mm3 (140-440); Red Blood Count 4.38 M/mm3 (3.65-5.03)
[2018-10-07 03:39] LABS: Amphetamine Screen,Urine PRESUMPTIVE NEGATIVE; Benzodiazepines Screen,Urine PRESUMPTIVE NEGATIVE; Cocaine Screen,Urine PRESUMPTIVE NEGATIVE; Methadone Screen,Urine PRESUMPTIVE NEGATIVE; Opiate Screen,Urine PRESUMPTIVE NEGATIVE
[2018-10-07 03:42] LABS: Red Cell Distribution Width 21.5 % (13.2-15.2)
[2018-10-07 03:45] LABS: Alanine Aminotransferase 35 units/L (7-56); Albumin 3.9 g/dL (3.9-5); BUN/Creatinine Ratio 11; Blood Urea Nitrogen 17 mg/dL (7-17); Calcium 8.7 mg/dL (8.4-10.2); Hemolysis Index 7
[2018-10-07 03:54] LABS: Bilirubin,Direct < 0.2 mg/dL (0-0.2)
[2018-10-07 04:04] LABS: Cannabinoid Screen,Urine PRESUMPTIVE POSITIVE
[2018-10-07] MEDS ORDERED: PEPCID IV ONE ×2 (04:14→10:37)
--- NOTE | 2018-10-07 04:47 | Cat Scan Report ---
PROCEDURE: CT HEAD/BRAIN WO CON TECHNIQUE: Computerized tomography of the head was performed without contrast material. CT DOSE LENGTH PRODUCT: 983 mGycm HISTORY: Altered Mental Status COMPARISONS: None . FINDINGS: Skull and scalp: Normal . Paranasal sinuses: Normal . Ventricles and subarachnoid spaces: Normal . Cerebrum: No evidence of hemorrhage, acute infarction or mass . Cerebellum and brainstem: No evidence of hemorrhage, acute infarction or mass . Vasculature: Normal . IMPRESSION: Normal Examination . This document is electronically signed by Marcos Dutton MD., Oct 07 2018 04:45:37 AM ET
[2018-10-07] MEDS ORDERED: ZOFRAN IV PRN (04:59)
[2018-10-07] MEDS ORDERED: SODIUM CHLORIDE FLUSH SYRINGE 10 ML IV PRN (04:59)
[2018-10-07] MEDS ORDERED: VANCOMYCIN 1,500 MG in NACL 0.9% 500 ML 500 ML IV ONE (05:15)
[2018-10-07] MEDS: APRESOLINE IV PRN (05:25)
[2018-10-07 05:40] LABS: INR 2.14 (0.87-1.13)
--- NOTE | 2018-10-07 05:44 | History and Physical Report ---
History of Present Illness Date of examination: 10/07/18 Chief complaint: Unresponsiveness History of present illness: Patient is a 48 year old -[place] female with history of DM2 and CAD who was brought to the ED via EMS on account of altered mental status. It was reported that the patient was found unresponsive by her family. Initial blood glucose was 19. Patient received dextrose 50, however she started having seizure-like activity. Upon arrival to the ER, patient was in active seizure. She received 3 mg of IV Ativan without improvement, so she was subsequently intubated and placed on sedation. Past History Past Medical History: CAD, diabetes, hypertension, other (carotid artery disease) Past Surgical History: CABG, Other (cardiac stent placement) Social history: other (unable to obtain due to altered mental status) Family history: other (unable to obtain due to altered mental status) Medications and Allergies Allergies Allergy/AdvReac Type Severity Reaction Status Date / Time No Known Allergies Allergy Verified 12/03/16 23:01 Home Medications Medication Instructions Recorded Confirmed Last Taken Type Metoprolol [Lopressor TAB] 25 mg PO BID #60 tablet 12/29/16 08/11/18 Unknown Rx Famotidine [Pepcid] 20 mg PO DAILY #30 tablet 02/04/17 08/07/18 Unknown Rx Metoprolol [Lopressor TAB] 50 mg PO TID #90 tablet 02/04/17 08/07/18 Unknown Rx Coumadin 5 mg PO .ASDIR #30 08/13/18 Unknown Rx Ferrous Sulfate [Feosol 325 MG tab] 325 mg PO BID #60 tablet 08/13/18 Unknown Rx Folic Acid [Folvite] 1 mg PO QDAY #30 tablet 08/13/18 Unknown Rx Furosemide [Lasix TAB] 40 mg PO DAILY #30 tablet 08/13/18 08/07/18 Unknown Rx Insulin Glargine [Lantus VIAL] 5 units SUB-Q BIDDIAB 30 Days 08/13/18 Unknown Rx units Multivitamin Tab [Multiple Vitamin 1 each PO QDAY #30 tablet 08/13/18 Unknown Rx TAB (Theragran)] Pantoprazole [Protonix TAB] 40 mg PO DAILY #30 tablet 08/13/18 Unknown Rx Thiamine [Vitamin B-1] 100 mg PO QDAY #30 tablet 08/13/18 Unknown Rx Warfarin [Coumadin] 7.5 mg PO .ASDIR 30 Days tablet 08/13/18 Unknown Rx Active Meds: Active Medications Acetaminophen (Tylenol) 650 mg PO Q4H PRN PRN Reason: Pain MILD(1-3)/Fever >100.5/RODRIGUEZ Famotidine (Pepcid) 10 mg IV BID [facility] Heparin Sodium (Porcine) (Heparin) 5,000 unit SUB-Q Q8HR [facility] Hydralazine HCl (Apresoline) 10 mg IV Q4H PRN PRN Reason: Blood Pressure Last Admin: 10/07/18 05:25 Dose: 10 mg Documented by: Hydrophilic Ointment (Vaseline Lip Therapy) 1 applic TP Q2HR PRN PRN Reason: Dry Lips Propofol (Diprivan 10 Mg/Ml) 1,000 mg in 100 mls @ 2.041 mls/hr IV TITR [facility]; Protocol Last Titration: 10/07/18 05:20 Dose: 15 mcg/kg/min, 6.124 mls/hr Documented by: Dextrose/Sodium Chloride (D5/0.45ns) 1,000 mls @ 125 mls/hr IV DIRECT [facility] Piperacillin Sod/Tazobactam Sod (Zosyn/Ns 3.375gm/50ml) 3.375 gm in 50 mls @ 100 mls/hr IV Q6HR [facility] Vancomycin HCl 1,500 mg/ (Sodium Chloride) 530 mls @ 333.333 mls/hr IV ONCE ONE Stop: 10/07/18 06:50 Vancomycin HCl (Vancomycin/Ns 1 Gm/250 Ml) 1 gm in 250 mls @ 250 mls/hr IV Q18H [facility] Multi-Ingred Cream/Lotion/Oil/Oint (Artificial Tears Ophth Oint) 1 applic OU Q4HR PRN PRN Reason: Dry Eye(s) Ondansetron HCl (Zofran) 4 mg IV Q8H PRN PRN Reason: Nausea And Vomiting Sodium Chloride (Sodium Chloride Flush Syringe 10 Ml) 10 ml IV BID [facility] Sodium Chloride (Sodium Chloride Flush Syringe 10 Ml) 10 ml IV PRN PRN PRN Reason: LINE FLUSH Review of Systems ROS unobtainable: due to endotracheal tube (and altered mental status) Exam - Constitutional Vitals: Temp Pulse Resp BP Pulse Ox 106 H 23 207/171 100 10/07/18 05:25 10/07/18 04:46 10/07/18 05:25 05/03/19 03:30 General appearance: Present: no acute distress, other (mildly agitated) - EENT Eyes: Present: PERRL ENT: other (patient is intubated) - Neck Neck: Present: supple - Respiratory Respiratory effort: normal Respiratory: bilateral: rales - Cardiovascular Rhythm: regular (with tachycardia) Heart Sounds: Present: S1 & S2 - Extremities Extremity abnormal: edema (in bilateral lower extremities) - Abdominal General gastrointestinal: Present: soft, non-distended, normal bowel sounds Female genitourinary: Present: deferred - Integumentary Integumentary: Present: clear, warm, dry - Psychiatric Psychiatric: other (unable to assess because patient is intubated) - Neurologic Neurologic: other (patient is intubated and sedated) Results - Labs CBC & Chem 7: 10/07/18 02:43 10/07/18 02:43 Labs: Laboratory Last Values WBC 6.6 K/mm3 (4.5-11.0) 10/07/18 02:43 RBC 4.38 M/mm3 (3.65-5.03) 10/07/18 02:43 Hgb 10.9 gm/dl (10.1-14.3) 10/07/18 02:43 Hct 35.0 % (30.3-42.9) 10/07/18 02:43 MCV 80 fl (79-97) 10/07/18 02:43 MCH 25 pg (28-32) L 10/07/18 02:43 MCHC 31 % (30-34) 10/07/18 02:43 RDW 21.5 % (13.2-15.2) H 10/07/18 02:43 Plt Count 404 K/mm3 (140-440) 10/07/18 02:43 Lymph % (Auto) 13.9 % (13.4-35.0) 10/07/18 02:43 [place] % (Auto) 5.7 % (0.0-7.3) 10/07/18 02:43 Eos % (Auto) 1.4 % (0.0-4.3) 10/07/18 02:43 Baso % (Auto) 0.6 % (0.0-1.8) 10/07/18 02:43 Lymph # 0.9 K/mm3 (1.2-5.4) L 10/07/18 02:43 [place] # 0.4 K/mm3 (0.0-0.8) 10/07/18 02:43 Eos # 0.1 K/mm3 (0.0-0.4) 10/07/18 02:43 Baso # 0.0 K/mm3 (0.0-0.1) 10/07/18 02:43 Seg Neutrophils % 78.4 % (40.0-70.0) H 10/07/18 02:43 Seg Neutrophils # 5.2 K/mm3 (1.8-7.7) 10/07/18 02:43 POC ABG pH 7.394 (7.35-7.45) 10/07/18 04:32 POC ABG pCO2 33.6 (35-45) L 10/07/18 04:32 POC ABG pO2 69 (80-105) L 10/07/18 04:32 POC ABG HCO3 20.5 (22-26 mml/L) 10/07/18 04:32 POC ABG Total CO2 22 (23-27mmol/L) 10/07/18 04:32 POC ABG O2 Sat 94 10/07/18 04:32 POC ABG Base Excess -4 ((-2) - (+3)mmol/L) 10/07/18 04:32 FiO2 50 % 10/07/18 04:32 Sodium 144 mmol/L (137-145) 10/07/18 02:43 Potassium 4.5 mmol/L (3.6-5.0) 10/07/18 02:43 Chloride 108.0 mmol/L (98-107) H 10/07/18 02:43 Carbon Dioxide 21 mmol/L (22-30) L 10/07/18 02:43 Anion Gap 20 mmol/L 10/07/18 02:43 BUN 17 mg/dL (7-17) 10/07/18 02:43 Creatinine 1.5 mg/dL (0.7-1.2) H 10/07/18 02:43 Estimated GFR 45 ml/min 10/07/18 02:43 BUN/Creatinine Ratio 11 % 10/07/18 02:43 Glucose 115 mg/dL (65-100) H 10/07/18 02:43 POC Glucose 136 (70-105) H 10/07/18 02:20 Lactic Acid 1.40 mmol/L (0.7-2.0) 10/07/18 04:45 Calcium 8.7 mg/dL (8.4-10.2) 10/07/18 02:43 Total Bilirubin 0.70 mg/dL (0.1-1.2) 10/07/18 02:43 Direct Bilirubin < 0.2 mg/dL (0-0.2) 10/07/18 02:43 Indirect Bilirubin 0.5 mg/dL 10/07/18 02:43 AST 51 units/L (5-40) H 10/07/18 02:43 ALT 35 units/L (7-56) 10/07/18 02:43 Alkaline Phosphatase 257 units/L (35-129) H 10/07/18 02:43 Ammonia 40.0 umol/L (25-60) 10/07/18 02:43 Troponin T 0.013 ng/mL (0.00-0.029) 10/07/18 02:43 Total Protein 7.0 g/dL (6.3-8.2) 10/07/18 02:43 Albumin 3.9 g/dL (3.9-5) 10/07/18 02:43 Albumin/Globulin Ratio 1.3 % 10/07/18 02:43 Urine Color Straw (Yellow) 10/07/18 02:34 Urine Turbidity Clear (Clear) 10/07/18 02:34 Urine pH 7.0 (5.0-7.0) 10/07/18 02:34 Ur Specific [place] 1.006 (1.003-1.030) 10/07/18 02:34 Urine Protein 100 mg/dl mg/dL (Negative) 10/07/18 02:34 Urine Glucose (UA) Neg mg/dL (Negative) 10/07/18 02:34 Urine Ketones Neg mg/dL (Negative) 10/07/18 02:34 Urine Blood Sm (Negative) 10/07/18 02:34 Urine Nitrite Neg (Negative) 10/07/18 02:34 Urine Bilirubin Neg (Negative) 10/07/18 02:34 Urine Urobilinogen < 2.0 mg/dL (<2.0) 10/07/18 02:34 Ur Leukocyte Esterase Tr (Negative) 10/07/18 02:34 Urine WBC (Auto) 1.0 /HPF (0.0-6.0) 10/07/18 02:34 Urine RBC (Auto) 5.0 /HPF (0.0-6.0) 10/07/18 02:34 U Epithel Cells (Auto) 1.0 /HPF (0-13.0) 10/07/18 02:34 Hyaline Casts 3 /LPF 10/07/18 02:34 Urine Mucus Few /HPF 10/07/18 02:34 Urine Opiates Screen Presumptive negative 10/07/18 02:34 Urine Methadone Screen Presumptive negative 10/07/18 02:34 Ur Barbiturates Screen Presumptive negative 10/07/18 02:34 Ur Phencyclidine Scrn Presumptive negative 10/07/18 02:34 Ur Amphetamines Screen Presumptive negative 10/07/18 02:34 U Benzodiazepines Scrn Presumptive negative 10/07/18 02:34 Urine Cocaine Screen Presumptive negative 10/07/18 02:34 U Marijuana (THC) Screen Presumptive positive 10/07/18 02:34 Drugs of Abuse Note Disclamer 10/07/18 02:34 Assessment and Plan Assessment and plan: Severe sepsis -Probably secondary to pneumonia -On sepsis protocol -CXR positive for right lower lobe infiltrates -On IV broad-spectrum antibiotics with vancomycin and Zosyn -Blood and sputum cultures pending Acute respiratory failure with hypoxia -Status post intubation on mechanical ventilator -Pulmonology consulted Acute metabolic encephalopathy -Probably due to hypoglycemia versus sepsis -Head CT scan negative for acute findings DM2 with hypoglycemia -On dextrose IVF and hypoglycemic protocol Seizure -Probably due to hypoglycemia -On IV sedative agents Hypertensive emergency with BP of 182/110 -Pt may need antihypertensive drip if no improvement with propofol drip ASHELY, probably vasomotor nephropathy -On IV fluid, will monitor creatinine level Metabolic acidosis -Likely due to the renal impairment -We will monitor bicarbonate level Transaminitis -Probably due to the sepsis -We'll monitor LFT levels DVT prophylaxis with heparin and GI prophylaxis with famotidine I spent 45 minutes providing critical care to this seriously ill patient who requires frequent reassessments of her respiratory and neurological status
[2018-10-07] MEDS ORDERED: VERSED IV ONE (05:58)
[2018-10-07] MEDS ORDERED: D5/0.45NS 1,000 ML IV SCH (06:00)
[2018-10-07] MEDS ORDERED: ZOSYN/NS 4.5GM/100ML 4.5 GM/100 ML VIAL IV SCH (06:00)
[2018-10-07] MEDS ORDERED: VANCOMYCIN PHARMACY TO DOSE IV SCH (06:00)
[2018-10-07] MEDS ORDERED: VERSED IV PRN (06:08)
[2018-10-07] MEDS: MIDAZOLAM 100 MG in NACL 0.9% 80 ML IV SCH (06:35)
[2018-10-07] MEDS ORDERED: VERSED IV NR (07:00)
[2018-10-07] MEDS ORDERED: MIDAZOLAM 100 MG in NACL 0.9% 80 ML IV SCH (07:00)
[2018-10-07] MEDS: ZOSYN/NS 3.375GM/50ML 3.375 GM/50 ML BAG IV SCH ×4 (08:25→23:10)
[2018-10-07] MEDS: HEPARIN SUB-Q SCH ×3 (09:00→19:33)
[2018-10-07] MEDS ORDERED: HEPARIN ONE ×2 (10:37→19:23)
[2018-10-07] MEDS: SODIUM CHLORIDE FLUSH SYRINGE 10 ML IV SCH ×2 (10:38→23:04)
[2018-10-07] MEDS: PEPCID IV SCH ×2 (10:38→22:59)
[2018-10-07] MEDS ORDERED: SUBLIMAZE ONE ×2 (13:16→14:18)
--- NOTE | 2018-10-07 14:22 | Consultation ---
History of Present Illness Consult date: 10/07/18 Requesting physician: VINCENT ELLIOTT Reason for consult: other (Acute Hypoxemic Respiratory Failure on MVS; Hypoglycemia) History of present illness: PULMONARY/CCM CONSULT NOTE (Full dictation # [id number]) Please see dictated notes for full details Past History Past Medical History: CAD, diabetes, hypertension, other (carotid artery disease) Past Surgical History: CABG, Other (cardiac stent placement) Social history: other (unable to obtain due to altered mental status) Family history: other (unable to obtain due to altered mental status) Medications and Allergies Allergies Allergy/AdvReac Type Severity Reaction Status Date / Time No Known Allergies Allergy Verified 12/03/16 23:01 Home Medications Medication Instructions Recorded Confirmed Last Taken Type Metoprolol [Lopressor TAB] 25 mg PO BID #60 tablet 12/29/16 08/11/18 Unknown Rx Famotidine [Pepcid] 20 mg PO DAILY #30 tablet 02/04/17 08/07/18 Unknown Rx Metoprolol [Lopressor TAB] 50 mg PO TID #90 tablet 02/04/17 08/07/18 Unknown Rx Coumadin 5 mg PO .ASDIR #30 08/13/18 Unknown Rx Ferrous Sulfate [Feosol 325 MG tab] 325 mg PO BID #60 tablet 08/13/18 Unknown Rx Folic Acid [Folvite] 1 mg PO QDAY #30 tablet 08/13/18 Unknown Rx Furosemide [Lasix TAB] 40 mg PO DAILY #30 tablet 08/13/18 08/07/18 Unknown Rx Insulin Glargine [Lantus VIAL] 5 units SUB-Q BIDDIAB 30 Days 08/13/18 Unknown Rx units Multivitamin Tab [Multiple Vitamin 1 each PO QDAY #30 tablet 08/13/18 Unknown Rx TAB (Theragran)] Pantoprazole [Protonix TAB] 40 mg PO DAILY #30 tablet 08/13/18 Unknown Rx Thiamine [Vitamin B-1] 100 mg PO QDAY #30 tablet 08/13/18 Unknown Rx Warfarin [Coumadin] 7.5 mg PO .ASDIR 30 Days tablet 08/13/18 Unknown Rx Active Meds: Active Medications Acetaminophen (Tylenol) 650 mg PO Q4H PRN PRN Reason: Pain MILD(1-3)/Fever >100.5/RODRIGUEZ Famotidine (Pepcid) 10 mg IV BID [facility] Last Admin: 10/07/18 10:38 Dose: 10 mg Documented by: Fentanyl (Sublimaze) 50 mcg IV Q10MIN PRN PRN Reason: ANALGESIA Heparin Sodium (Porcine) (Heparin) 5,000 unit SUB-Q Q8HR [facility] Last Admin: 10/07/18 09:00 Dose: 5,000 unit Documented by: Hydralazine HCl (Apresoline) 10 mg IV Q4H PRN PRN Reason: Blood Pressure Last Admin: 10/07/18 05:25 Dose: 10 mg Documented by: Hydrophilic Ointment (Vaseline Lip Therapy) 1 applic TP Q2HR PRN PRN Reason: Dry Lips Dextrose/Sodium Chloride (D5/0.45ns) 1,000 mls @ 125 mls/hr IV DIRECT [facility] Piperacillin Sod/Tazobactam Sod (Zosyn/Ns 3.375gm/50ml) 3.375 gm in 50 mls @ 100 mls/hr IV Q6HR [facility] Last Admin: 10/07/18 08:25 Dose: 100 mls/hr Documented by: Midazolam HCl 100 mg/ Sodium (Chloride) 100 mls @ 2 mls/hr IV TITR [facility]; Protocol Last Titration: 10/07/18 12:59 Dose: 5 mg/hr, 5 mls/hr Documented by: Fentanyl Citrate (Fentanyl Drip Premix) 2,000 mcg in 100 mls @ 3.402 mls/hr IV TITR [facility]; Protocol Vancomycin HCl (Vancomycin/Ns 1 Gm/250 Ml) 1 gm in 250 mls @ 250 mls/hr IV Q24H [facility] Midazolam HCl (Versed) 2 mg IV Q10MIN PRN PRN Reason: Sedation Multi-Ingred Cream/Lotion/Oil/Oint (Artificial Tears Ophth Oint) 1 applic OU Q4HR PRN PRN Reason: Dry Eye(s) Ondansetron HCl (Zofran) 4 mg IV Q8H PRN PRN Reason: Nausea And Vomiting Sodium Chloride (Sodium Chloride Flush Syringe 10 Ml) 10 ml IV BID [facility] Last Admin: 10/07/18 10:38 Dose: 10 ml Documented by: Sodium Chloride (Sodium Chloride Flush Syringe 10 Ml) 10 ml IV PRN PRN PRN Reason: LINE FLUSH Physical Examination Vital signs: Vital Signs Pulse Resp 112 H 18 10/07/18 01:52 10/07/18 01:52 Results - Laboratory Findings CBC and BMP: 10/07/18 02:43 10/07/18 02:43 ABG POC ABG pH 7.394 (7.35-7.45) 10/07/18 04:32 POC ABG pCO2 33.6 (35-45) L 10/07/18 04:32 POC ABG pO2 69 (80-105) L 10/07/18 04:32 POC ABG HCO3 20.5 (22-26 mml/L) 10/07/18 04:32 POC ABG Total CO2 22 (23-27mmol/L) 10/07/18 04:32 POC ABG O2 Sat 94 10/07/18 04:32 PT/INR, D-dimer PT 25.4 Sec. (12.2-14.9) H 10/07/18 05:12 INR 2.14 (0.87-1.13) H 10/07/18 05:12 Abnormal lab findings: Abnormal Labs 10/07/18 10/07/18 10/07/18 02:20 02:43 02:43 MCH 25 L RDW 21.5 H Lymph # 0.9 L Seg Neutrophils % 78.4 H PT INR POC ABG pCO2 POC ABG pO2 Chloride 108.0 H Carbon Dioxide 21 L Creatinine 1.5 H Glucose 115 H POC Glucose 136 H Lactic Acid AST 51 H Alkaline Phosphatase 257 H 10/07/18 10/07/18 10/07/18 02:43 04:32 05:12 MCH RDW Lymph # Seg Neutrophils % PT 25.4 H INR 2.14 H POC ABG pCO2 33.6 L POC ABG pO2 69 L Chloride Carbon Dioxide Creatinine Glucose POC Glucose Lactic Acid 2.40 H* AST Alkaline Phosphatase 10/07/18 06:28 MCH RDW Lymph # Seg Neutrophils % PT INR POC ABG pCO2 POC ABG pO2 Chloride Carbon Dioxide Creatinine Glucose POC Glucose 164 H Lactic Acid AST Alkaline Phosphatase
[2018-10-07] MEDS ORDERED: fentaNYL DRIP Premix 2,000 MCG/100 ML BAG IV ONE (14:23)
[2018-10-07] MEDS: SUBLIMAZE IV PRN (14:32)
[2018-10-07] MEDS: fentaNYL DRIP Premix 2,000 MCG/100 ML BAG IV SCH (14:35)
--- NOTE | 2018-10-07 15:38 | Progress Note ---
Assessment and Plan Assessment and plan: 48 year old woman with history of coronary artery disease, status post cabbage, diabetes, hypertension who was brought to the emergency room for altered mental status. She was found to have hypoglycemia, she was also having convulsions at the time of admission. The patient was intubated can I receive dextrose she was put on the ventilator she was found to have pneumonia and started on antibiotics. Pneumonia continue antibiotics Continue to wean ventilator para pulmonology Seizures when most likely due to hypoglycemia, continue dextrose as needed, judicious use of insulin -eeg, neurology consult CT head, no acute findings Chest x-ray semicolon right lower lobe infiltrates, right pleural effusion Diagnosis status epilepticus hypoglycemia aspiration pneumonia type 2 diabetes coronary artery disease acute metabolic encephalopathy acute respiratory failure mechanical ventilator less than 96 hours CCT 33 mins History Interval history: intubated was agitated and improved with fentanyl ggt no vomiting no fever, Hospitalist Physical - Physical exam Narrative exam: General.: toxic HEENT: Moist mucous membranes, extraocular muscles intact, no lymphadenopathy Neck: supple Cardiac: S1-S2 heard Lungs: rales Abdomen: soft , nontender, nondistended, bowel sounds positive Extremities: no edema clubbing or cyanosis Skin: no rash or lesions Neurologic: sedated Psych: sedated - Constitutional Vitals: Temp Pulse Resp BP Pulse Ox 94.6 F L 85 17 108/64 100 10/07/18 05:00 10/07/18 15:20 10/07/18 15:20 10/07/18 15:20 10/07/18 14:20 General appearance: Present: no acute distress, other (mildly agitated) Results - Labs CBC & Chem 7: 10/08/18 17:00 10/09/18 12:46 Labs: Laboratory Last Values WBC 6.6 K/mm3 (4.5-11.0) 10/07/18 02:43 RBC 4.38 M/mm3 (3.65-5.03) 10/07/18 02:43 Hgb 10.9 gm/dl (10.1-14.3) 10/07/18 02:43 Hct 35.0 % (30.3-42.9) 10/07/18 02:43 MCV 80 fl (79-97) 10/07/18 02:43 MCH 25 pg (28-32) L 10/07/18 02:43 MCHC 31 % (30-34) 10/07/18 02:43 RDW 21.5 % (13.2-15.2) H 10/07/18 02:43 Plt Count 404 K/mm3 (140-440) 10/07/18 02:43 Lymph % (Auto) 13.9 % (13.4-35.0) 10/07/18 02:43 Delta % (Auto) 5.7 % (0.0-7.3) 10/07/18 02:43 Eos % (Auto) 1.4 % (0.0-4.3) 10/07/18 02:43 Baso % (Auto) 0.6 % (0.0-1.8) 10/07/18 02:43 Lymph # 0.9 K/mm3 (1.2-5.4) L 10/07/18 02:43 Delta # 0.4 K/mm3 (0.0-0.8) 10/07/18 02:43 Eos # 0.1 K/mm3 (0.0-0.4) 10/07/18 02:43 Baso # 0.0 K/mm3 (0.0-0.1) 10/07/18 02:43 Seg Neutrophils % 78.4 % (40.0-70.0) H 10/07/18 02:43 Seg Neutrophils # 5.2 K/mm3 (1.8-7.7) 10/07/18 02:43 PT 25.4 Sec. (12.2-14.9) H 10/07/18 05:12 INR 2.14 (0.87-1.13) H 10/07/18 05:12 POC ABG pH 7.394 (7.35-7.45) 10/07/18 04:32 POC ABG pCO2 33.6 (35-45) L 10/07/18 04:32 POC ABG pO2 69 (80-105) L 10/07/18 04:32 POC ABG HCO3 20.5 (22-26 mml/L) 10/07/18 04:32 POC ABG Total CO2 22 (23-27mmol/L) 10/07/18 04:32 POC ABG O2 Sat 94 10/07/18 04:32 POC ABG Base Excess -4 ((-2) - (+3)mmol/L) 10/07/18 04:32 FiO2 50 % 10/07/18 04:32 Sodium 144 mmol/L (137-145) 10/07/18 02:43 Potassium 4.5 mmol/L (3.6-5.0) 10/07/18 02:43 Chloride 108.0 mmol/L (98-107) H 10/07/18 02:43 Carbon Dioxide 21 mmol/L (22-30) L 10/07/18 02:43 Anion Gap 20 mmol/L 10/07/18 02:43 BUN 17 mg/dL (7-17) 10/07/18 02:43 Creatinine 1.5 mg/dL (0.7-1.2) H 10/07/18 02:43 Estimated GFR 45 ml/min 10/07/18 02:43 BUN/Creatinine Ratio 11 % 10/07/18 02:43 Glucose 115 mg/dL (65-100) H 10/07/18 02:43 POC Glucose 164 (70-105) H 10/07/18 06:28 Lactic Acid 1.30 mmol/L (0.7-2.0) 10/07/18 05:47 Calcium 8.7 mg/dL (8.4-10.2) 10/07/18 02:43 Total Bilirubin 0.70 mg/dL (0.1-1.2) 10/07/18 02:43 Direct Bilirubin < 0.2 mg/dL (0-0.2) 10/07/18 02:43 Indirect Bilirubin 0.5 mg/dL 10/07/18 02:43 AST 51 units/L (5-40) H 10/07/18 02:43 ALT 35 units/L (7-56) 10/07/18 02:43 Alkaline Phosphatase 257 units/L (35-129) H 10/07/18 02:43 Ammonia 40.0 umol/L (25-60) 10/07/18 02:43 Troponin T < 0.010 ng/mL (0.00-0.029) 10/07/18 08:59 Total Protein 7.0 g/dL (6.3-8.2) 10/07/18 02:43 Albumin 3.9 g/dL (3.9-5) 10/07/18 02:43 Albumin/Globulin Ratio 1.3 % 10/07/18 02:43 Urine Color Straw (Yellow) 10/07/18 02:34 Urine Turbidity Clear (Clear) 10/07/18 02:34 Urine pH 7.0 (5.0-7.0) 10/07/18 02:34 Ur Specific Dixon 1.006 (1.003-1.030) 10/07/18 02:34 Urine Protein 100 mg/dl mg/dL (Negative) 10/07/18 02:34 Urine Glucose (UA) Neg mg/dL (Negative) 10/07/18 02:34 Urine Ketones Neg mg/dL (Negative) 10/07/18 02:34 Urine Blood Sm (Negative) 10/07/18 02:34 Urine Nitrite Neg (Negative) 10/07/18 02:34 Urine Bilirubin Neg (Negative) 10/07/18 02:34 Urine Urobilinogen < 2.0 mg/dL (<2.0) 10/07/18 02:34 Ur Leukocyte Esterase Tr (Negative) 10/07/18 02:34 Urine WBC (Auto) 1.0 /HPF (0.0-6.0) 10/07/18 02:34 Urine RBC (Auto) 5.0 /HPF (0.0-6.0) 10/07/18 02:34 U Epithel Cells (Auto) 1.0 /HPF (0-13.0) 10/07/18 02:34 Hyaline Casts 3 /LPF 10/07/18 02:34 Urine Mucus Few /HPF 10/07/18 02:34 Urine Opiates Screen Presumptive negative 10/07/18 02:34 Urine Methadone Screen Presumptive negative 10/07/18 02:34 Ur Barbiturates Screen Presumptive negative 10/07/18 02:34 Ur Phencyclidine Scrn Presumptive negative 10/07/18 02:34 Ur Amphetamines Screen Presumptive negative 10/07/18 02:34 U Benzodiazepines Scrn Presumptive negative 10/07/18 02:34 Urine Cocaine Screen Presumptive negative 10/07/18 02:34 U Marijuana (THC) Screen Presumptive positive 10/07/18 02:34 Drugs of Abuse Note Disclamer 10/07/18 02:34 Active Medications - Current Medications Current Medications: Generic Name Dose Route Start Last Admin Trade Name Freq PRN Reason Stop Dose Admin Acetaminophen 650 mg 10/07/18 04:59 Tylenol PO Q4H PRN Pain MILD(1-3)/Fever >100.5/RODRIGUEZ Famotidine 10 mg 10/07/18 10:00 10/07/18 10:38 Pepcid IV 10 mg BID U[facility] Administration Fentanyl 50 mcg 10/07/18 09:07 Sublimaze IV Q10MIN PRN ANALGESIA Heparin Sodium (Porcine) 5,000 unit 10/07/18 06:00 10/07/18 09:00 Heparin SUB-Q 5,000 unit Q8HR [facility] Administration Hydralazine HCl 10 mg 10/07/18 05:07 10/07/18 05:25 Apresoline IV 10 mg Q4H PRN Administration Blood Pressure Hydrophilic Ointment 1 applic 10/07/18 02:40 Vaseline Lip Therapy TP Q2HR PRN Dry Lips Dextrose/Sodium Chloride 1,000 mls @ 125 mls/hr 10/07/18 06:00 D5/0.45ns IV DIRECT [facility] Piperacillin Sod/Tazobactam Sod 3.375 gm in 50 mls @ 100 mls/hr 10/07/18 06:00 10/07/18 08:25 Zosyn/Ns 3.375gm/50ml IV 100 mls/hr Q6HR [facility] Administration Midazolam HCl 100 mg/ Sodium 100 mls @ 2 mls/hr 10/07/18 07:00 10/07/18 14:44 Chloride IV 0 mg/hr TITR [facility] 0 mls/hr Titration Protocol 2 MG/HR Fentanyl Citrate 2,000 mcg in 100 mls @ 3.402 mls/hr 10/07/18 10:00 10/07/18 14:35 Fentanyl Drip Premix IV 2 mcg/kg/hr TITR [facility] 6.804 mls/hr Administration Protocol 1 MCG/KG/HR Vancomycin HCl 1 gm in 250 mls @ 250 mls/hr 10/08/18 08:00 Vancomycin/Ns 1 Gm/250 Ml IV Q24H [facility] Midazolam HCl 2 mg 10/07/18 06:03 Versed IV Q10MIN PRN Sedation Multi-Ingred Cream/Lotion/Oil/Oint 1 applic 10/07/18 02:40 Artificial Tears Ophth Oint OU Q4HR PRN Dry Eye(s) Ondansetron HCl 4 mg 10/07/18 04:59 Zofran IV Q8H PRN Nausea And Vomiting Sodium Chloride 10 ml 10/07/18 10:00 10/07/18 10:38 Sodium Chloride Flush Syringe 10 Ml IV 10 ml BID ULI Administration Sodium Chloride 10 ml 10/07/18 04:59 Sodium Chloride Flush Syringe 10 Ml IV PRN PRN LINE FLUSH Nutrition/Malnutrition Assess - Dietary Evaluation Nutrition/Malnutrition Findings: Nutrition Notes Start: 10/07/18 12:17 Freq: Status: Active Protocol: Document 10/07/18 12:17 EB (Rec: 10/07/18 12:24 EB [id number]) Co-Sign 10/07/18 12:17 LP Nutrition Notes Need for Assessment generated from: MD Order Initial or Follow up Assessment Current Diagnosis Coronary Artery Disease, Diabetes,Hypertension Other Pertinent Diagnosis AMS, CABG Current Diet NPO Labs/Tests Reviewed Pertinent Medications Reviewed Height 5 ft 2 in Weight 68.039 kg [place] Body Weight (kg) 50.00 BMI 27.4 Subjective/Other Information RD consulted for evaluation of nutritional intake. Pt intubated at adm and remains in ED at this time. Percent of energy/protein needs met: 0%/0% Burn Absent Trauma Absent Current % PO Negligible #1 Nutrition Diagnosis Inadequate oral intake Etiology on [facility] vent As Evidenced by Signs and Symptoms NPO status Is patient on ventilator? Yes Is Patient Ambulatory and/or Out of Bed No REE-([facility]-confined to bed) 1514.256 Calculation Used for Recommendations [facility] Additional Notes PRO: 1.2-2 gkg (82-136 g/day) Fluid: 1 mL/kcal Nutrition Intervention Change Diet Order: TF consult when medically feasible Nutrition Support: TF recommendations when consulted: Vital 1.2 at 55 mL/ hr ; Flush 100 mL q 4 hr Kcal 1,584 Protein (gm) 99 Carbohydrates (gm) 146 Fat (gm) 71 Fluid (mL) 1,071 Fiber (gm) 7 Goal #1 TF consult Anticipated Discharge Needs: unable to determine at this time Follow-Up By: 10/10/18 Additional Comments F/u: TF consult
[2018-10-07] MEDS ORDERED: VANCOMYCIN/NS 1 GM/250 ML 1 GM/250 ML BAG IV SCH (18:00)
[2018-10-07] MEDS ORDERED: HumaLOG SUB-Q SCH (20:44)
[2018-10-07] MEDS ORDERED: HumaLOG SUB-Q ONE (21:16)
[2018-10-07] MEDS: HumaLOG SUB-Q SCH (22:58)
[2018-10-07] MEDS ORDERED: LANTUS SUB-Q SCH (23:00)
[2018-10-07] MEDS ORDERED: NACL 0.9% 1000 ML 1,000 ML IV SCH (23:00)
[2018-10-07] MEDS ORDERED: HumuLIN R 100 UNITS in NACL 0.9% 99 ML IV SCH (23:45)
[2018-10-08] MEDS ORDERED: NACL 0.9% 1000 ML 1,000 ML IV SCH
[2018-10-08] MEDS: HumaLOG SUB-Q SCH
--- NOTE | 2018-10-08 00:09 | Event Note ---
Date: 10/08/18 BMP level done indicative of DKA. Pt started on a DKA protocol
[2018-10-08] MEDS: fentaNYL DRIP Premix 2,000 MCG/100 ML BAG IV SCH ×2 (00:20→22:36)
[2018-10-08] MEDS: HEPARIN SUB-Q SCH ×3 (00:27→17:11)
--- NOTE | 2018-10-08 00:36 | Consultation ---
PULMONARY CRITICAL CARE CONSULTATION CONSULTING PHYSICIAN: Dr. Cavanaugh. REASON FOR CONSULTATION: Acute hypoxemic respiratory failure, on mechanical ventilatory support; symptomatic hypoglycemia, acute toxic metabolic encephalopathy. CHIEF COMPLAINT AND HISTORY OF PRESENT ILLNESS: As follows: The patient is a 48-year-old -[place] female with a past medical history significant amongst other things in this context for a diagnosis of diabetes type 2, who was brought into the Emergency Room due to altered mental status. Reportedly, she was found unresponsive by her family. Initial blood glucose was 19 in the field. She developed seizure-like activity in the ER. Upon presentation, she was in active seizures. She was given some Ativan, did not improve. She was subsequently intubated and sedated. We are asked to assist with management. When I stopped by to see her, she was on a Versed drip at 5 mg per hour. There was seizure type activity that could see, certainly could not rule out subclinical seizures. I do not have any history of vomiting or overt aspiration. The patient's tobacco use/abuse history is unknown. The above is as much of the history of presentation as I have. PAST MEDICAL HISTORY: Coronary artery disease, diabetes, hypertension, reported carotid artery disease, unspecified. PAST SURGICAL HISTORY: She has had coronary artery bypass grafting and cardiac stent placement. MEDICATIONS: She was on at the time I stopped by to see here were reviewed. Pertinent medications included the following: Tylenol 650 mg p.o. q. 4 hours p.r.n. mild pain, D5 half NS was going at 125 mL per hour, Pepcid 10 mg IV b.i.d.; fentanyl drip has been ordered, not yet started; heparin 5000 units subcutaneous q.8 hours, hydralazine 10 mg IV q.4 hours p.r.n. elevated blood pressure. Versed drip again was going to 5 mg per hour. Zofran 4 mg IV q. 8 hours p.r.n. nausea and vomiting, Zosyn 3.375 grams IV q. 6 hours, and vancomycin 1 gram IV q. 24 hours. ALLERGIES: No known drug allergies. DIET: Petite lady, acute weight loss or gain history is unknown. FAMILY AND SOCIAL HISTORY: Lives in the community; however, alcohol, tobacco, or illicit drug use or abuse history is unknown. REVIEW OF SYSTEMS: Also unobtainable at this point due to the patient's medical and mental condition. Since she has been here and since she has been sedated, according to the nursing staff, no more seizure type activity has been noted. She has had no gross hematochezia or melena, no gross hematuria, no bloody tracheal secretions. REVIEW OF SYSTEMS: Otherwise as in body of history above or unobtainable. PHYSICAL EXAMINATION: VITAL SIGNS: At presentation in the Emergency Room, she was hypothermic, temperature was 92.8 degrees Fahrenheit with a pulse of 102, respiratory rate of 17, blood pressure 153/106, O2 sats 100%, inspired oxygen concentration at that time was not recorded. When I stopped by to see her, she was on the mechanical ventilator, assist control mode of ventilation, set rate of 18, tidal volumes 450, PEEP of 6, and 50% FiO2. GENERAL: She is short statured fully well-developed -[place] female. Normocephalic, on the mechanical ventilator, riding the set rate without significant patient ventilator dyssynchrony. HEAD, EYES, EARS, NOSE AND THROAT: She is anicteric. No conjunctival erythema. Oropharynx was moist. Endotracheal tube was taped at the lips around 23 cm. No gross jugular venous distention, no thyromegaly. Grossly, no palpable lymph nodes in the supraclavicular or submandibular lymph node chains. LUNGS: Auscultation of both lung pearson are unremarkable. At the time of my exam, lungs were clear bilaterally with good bilateral air movement. HEART: Heart sounds 1 and 2 were heard. They were regular in rate and rhythm at the time of my evaluation. No rubs or murmurs. ABDOMEN: Soft, full, bowel sounds are positive, nontender, no palpable hepatosplenomegaly. EXTREMITIES: She had about 1+ bipedal pitting edema. No clubbing or cyanosis. Pedal pulses were strong and palpable bilaterally. NEUROLOGIC: Pupils were equal, round, about 2 mm, sluggishly reactive to light. Extraocular muscle movements could not be assessed. She had spontaneous withdrawal movements to all her extremities. The skin was of normal turgor without overt cellulitis or rashes. LABORATORY DATA: From my review, white cell count 6600, hemoglobin 10.9, hematocrit 35.0, platelet count 404. INR was 2.14. Arterial blood gas showed a pH of 7.39, pCO2 of 34, pO2 of 69 on the above-mentioned vent settings and 50% FiO2. Serum sodium was 144, potassium 4.5, chloride 108, bicarbonate 21, BUN 17, creatinine 1.5, glucose was 136. Lactic acid level was 2.4, now within normal limits at 1.4, AST up at 51. Otherwise, liver function tests essentially within normal limits. Troponin within normal limits. Ammonia level within normal limits. Urinalysis, trace leukocyte esterase, only 1 white cell per high power field, no bacteria. Urine drug screen was presumptive positive for THC, otherwise there was a negative screen. Two sets of blood cultures, tracheal aspirate, no growth to date. Chest x-ray has been reviewed as has a CT scan of the brain report. The CT of the brain was a normal exam. Chest x-ray shows endotracheal tube tip at the level of the aortic knob about 4 cm above the geronimo. Median sternotomy wires are intact and in place. She has gross cardiomegaly, right pleural effusion and mildly increased interstitial markings bilaterally consistent with [id number] interstitial edema. ASSESSMENT: 1. Acute hypoxemic respiratory failure, on mechanical ventilatory support. 2. Symptomatic hypoglycemia. 3. Seizures, possibly related to the hypoglycemia. 4. Acute encephalopathy, toxic metabolic. 5. History of cardiomyopathy. 6. Right pleural effusion. 7. Pulmonary edema bilateral. 8. History of diabetes. 9. Hypertension. 10. Coagulopathy that is probably related to her Coumadin use at home. PLAN: I will keep her on full mechanical ventilator support in the short time. I will reduce the set rate to 12 and repeat an arterial blood gas in about one hour as she is riding the set rate that may be due to the fact that she has been hypoventilated. I have asked the nurse to do a sedation assessment trial and reduce the Versed. We will begin also some fentanyl to see if we can spare the Versed a little bit and see if we can see any signs of persistent seizure activity. An EEG will be ordered. Neurology evaluation is ongoing. I will continue empiric antibiotics at this time. I will order lactic acid levels, CRP level and trend as necessary to washer engineer helper clinical decision making. Enteral nutrition will be the feeding modality of choice and nutritional consult will be placed. Electrolytes will be followed and corrected as necessary. She is on GI prophylaxis appropriately. She is on heparin, but with her INR therapeutic, it is unclear if she will beneficial get from that at this point. Flu and pneumonia vaccination will be addressed per protocol. Ventilator-associated pneumonia bundle has been addressed. Oxygen will be weaned to keep sats greater than or equal to about 90%. Daily sedation assessment trials and SBT assessments will be obtained. Thank you very much for the consult. We will follow along and make further recommendations as picture progresses/becomes clearer. I should say, I doubt we are dealing with venous thromboembolic phenomenon, coming in with a therapeutic INR. Cardiology evaluation will certainly be of benefit. At this time, I spent about 35-40 minutes of critical care time without overlap and excluding any procedural time that may be necessary. JOB# [id number] CAYETANO/BAM PARKER
--- NOTE | 2018-10-08 04:08 | XRay Report ---
PROCEDURE: XR CHEST 1V AP TECHNIQUE: Single AP chest. Comparison is made to the prior radiograph from October 07. HISTORY: follow up respiratory failure COMPARISONS: October 07 FINDINGS: ET tube and NG tube remain in place. Mild central vascular congestion with right pleural effusion, slightly decreased. Status post median sternotomy with aortic prosthetic valve in place again noted. No other significant interval change. IMPRESSION: Status post median sternotomy with mild central vascular congestion and right pleural effusion, sligh tly decreased.. This document is electronically signed by Rojelio Isaac MD., Oct 08 2018 04:06:49 AM ET
[2018-10-08 04:28] LABS: Basophils # (Auto) 0.1 K/mm3 (0.0-0.1); Basophils % (Auto) 0.5 % (0.0-1.8); Eosinophils % (Auto) 0.1 % (0.0-4.3); Hematocrit 27.5 % (30.3-42.9); Hemoglobin 8.3 gm/dl (10.1-14.3); Lymphocytes # (Auto) 0.8 K/mm3 (1.2-5.4); Lymphocytes % (Auto) 6.8 % (13.4-35.0); Mean Corpuscular HGB Conc 30 % (30-34); Mean Corpuscular Volume 83 fl (79-97); Monocytes # (Auto) 1.4 K/mm3 (0.0-0.8); Platelet Count 318 K/mm3 (140-440); Red Blood Count 3.32 M/mm3 (3.65-5.03)
[2018-10-08 04:50] LABS: Albumin 2.6 g/dL (3.9-5)
[2018-10-08] MEDS: ZOSYN/NS 3.375GM/50ML 3.375 GM/50 ML BAG IV SCH ×4 (04:57→22:11)
[2018-10-08] MEDS ORDERED: D5W/0.45% NACL/KCL 20 MEQ 20 MEQ/1,000 ML BAG IV SCH (07:00)
--- NOTE | 2018-10-08 07:25 | Progress Note ---
Assessment and Plan Acute hypoxemic respiratory failure, on mechanical ventilatory support. Symptomatic hypoglycemia. Seizures, possibly related to the hypoglycemia. Acute encephalopathy, toxic metabolic. Mild Hyponatremia Hyperkalemia s/p CABG with mechanical valve History of cardiomyopathy. (EF 40%) Right pleural effusion with infiltrate- probable aspiration History of diabetes. Hypertension. Coagulopathy that is probably related to her Coumadin use at home ABG on current setings 7.2/33.8/126/ BE -13 Anion gap of 24, Lactic acid of 3.70 The ABGS are indicative of intravascular volume depletion, volume resuscitate with Normal saline 1000ml. Stop the D51/2N saline, patient has hyperkalemia. Start D51/2Nsaline Adjust minute ventilation for better gas exchange Get ABG, BMP and lactic acid at 4pm, instructed the RN to call me with results Discussed vent changes with the RT, adjust rate and continue with low tidal volume strategy Continue with Zosyn and Vancomycin, monitor INR closely adn adjust coumadin dosing accordingly -Continue full MVS -Wean supplemental oxygen to keep O2 sats 88-90% -Lung protective strategies -Daily ABGs/CXR for now -VAP bundle addressed -Monitor renal indices closely -Avoid nephrotoxic agents, adjust all medications for CrCL -Strict intake and output monitoring, can discontinue corona and place a PureWic -Daily SAT & SBT -Sedation target for RASS 0 to -1 -Stress ulcer prophylaxis -VTE prophylaxis- anticoagulated. Has a mechanical valve , has to be anticoagulated with coumadin. Keep INR 2.5 to 3.5 -Tube feedings, lace a small bowel feeding tube and start Glucerna 1.5 -Get nutrition consult -Aspiration precautions -Accuchecks with glycemic control. Target glucose of 140-180 mg/dL -Bronchodilators with pulmonary hygiene per RT -Maintenance of sleep -wake cycle -Mobility as tolerated by hemodynamics -Influenza and pneumonia vaccination per protocol ..care plan discussed at length with RN/RT at the bedside PROGNOSIS:GUARDED CONDITION: CRITICAL CODE STATUS: FULL CODE The high probability of a clinically significant, sudden or life-threatening deterioration of the [respiratory, neurology, renal, endocrine] system(s) required my full and direct attention, intervention and personal management. The aggregate critical care time was [65] minutes without overlap. Time includes spent on; [x] Data Review and interpretation [x] Patient assessment and monitoring of vital signs [x] Documentation [x] Medication orders and management Subjective Date of service: 10/08/18 Interval history: Patient is seen today for: Acute hypoxemic respiratory failure, on mechanical ventilatory support; Symptomatic hypoglycemia; Seizures, possibly related to the hypoglycemia; Acute encephalopathy, toxic metabolic; Mild Hyponatremia; History of cardiomyopathy. (EF 40%) Seen and examined at bedside; 24hour events reviewed; nursing and respiratory care staff consulted; no adverse overnight events reported to me; remains on MVS. Admitted with hypoglycemia, unresponsive, with possible seizures s/p lorazepam, noted to have angioedema. Was hypothermic at presentation. CT head negative, had RLL infiltrate on chest imaging. UDS positive for marajuana. Objective - Exam Narrative Exam: General appearance:lethargic in NAD , spontaneous eye opening on verbal command, intubated Eyes: anicteric sclerae, moist conjunctivae; no lid-lag; PERRLA HENT: Atraumatic; oropharynx ETT at 23cm at the lip, large tongue Neck: Trachea midline; supple, no thyromegaly or lymphadenopathy Lungs: coarse breath sounds bilaterlly, dimished at the bases CV: RRR, mechanical tones Abdomen: Soft, non-tender; no masses or hepatosplenomegaly Extremities: No peripheral edema or extremity lymphadenopathy Skin: Normal temperature, turgor and texture; no rash, ulcers or subcutaneous nodules Psych: Unable to assess Neuro: lethargic Vital Signs - 12hr 10/07/18 10/07/18 10/07/18 19:25 19:30 19:35 Temperature Pulse Rate 86 88 89 Respiratory 24 26 H 16 Rate Blood Pressure 112/62 107/59 105/61 Blood Pressure [Left] O2 Sat by Pulse 100 100 Oximetry 10/07/18 10/07/18 10/07/18 19:40 19:45 19:50 Temperature Pulse Rate 89 91 H 92 H Respiratory 14 20 17 Rate Blood Pressure 107/65 109/61 108/62 Blood Pressure [Left] O2 Sat by Pulse 100 100 Oximetry 10/07/18 10/07/18 10/07/18 19:55 20:00 20:05 Temperature Pulse Rate 90 92 H 92 H Respiratory 15 13 12 Rate Blood Pressure 113/59 107/56 109/59 Blood Pressure [Left] O2 Sat by Pulse Oximetry 10/07/18 10/07/18 10/07/18 20:10 20:15 20:20 Temperature Pulse Rate 91 H 90 92 H Respiratory 14 12 13 Rate Blood Pressure 95/57 99/56 107/56 Blood Pressure [Left] O2 Sat by Pulse Oximetry 10/07/18 10/07/18 10/07/18 20:25 20:30 20:35 Temperature Pulse Rate 91 H 92 H 93 H Respiratory 13 13 12 Rate Blood Pressure 99/48 93/52 99/53 Blood Pressure [Left] O2 Sat by Pulse Oximetry 10/07/18 10/07/18 10/07/18 20:40 20:45 20:50 Temperature Pulse Rate 91 H 89 89 Respiratory 15 14 13 Rate Blood Pressure 99/55 95/51 89/50 Blood Pressure [Left] O2 Sat by Pulse Oximetry 10/07/18 10/07/18 10/07/18 20:55 21:00 21:05 Temperature Pulse Rate 94 H 86 87 Respiratory 15 30 H 29 H Rate Blood Pressure 89/59 97/45 93/47 Blood Pressure [Left] O2 Sat by Pulse Oximetry 10/07/18 10/07/18 10/07/18 21:08 21:10 21:15 Temperature 96.7 F L Pulse Rate 90 88 90 Respiratory 14 23 21 Rate Blood Pressure 94/49 105/60 Blood Pressure 95/51 [Left] O2 Sat by Pulse 100 Oximetry 10/07/18 10/07/18 10/07/18 21:20 21:25 21:30 Temperature Pulse Rate 90 89 90 Respiratory 15 12 16 Rate Blood Pressure 108/57 106/57 101/59 Blood Pressure [Left] O2 Sat by Pulse Oximetry 10/07/18 10/07/18 10/07/18 21:35 21:40 21:45 Temperature Pulse Rate 90 90 90 Respiratory 12 12 19 Rate Blood Pressure 106/63 114/65 105/59 Blood Pressure [Left] O2 Sat by Pulse Oximetry 10/07/18 10/07/18 10/07/18 21:50 21:55 22:00 Temperature 98 F Pulse Rate 91 H 92 H 93 H Respiratory 20 12 13 Rate Blood Pressure 111/59 106/60 110/60 Blood Pressure [Left] O2 Sat by Pulse Oximetry 10/07/18 10/07/18 10/07/18 22:06 22:10 23:11 Temperature 98 F Pulse Rate 96 H 93 H Respiratory 16 16 Rate Blood Pressure 110/60 99/53 Blood Pressure [Left] O2 Sat by Pulse Oximetry 10/07/18 10/08/18 10/08/18 23:49 03:33 07:23 Temperature 97.2 F L 97.8 F Pulse Rate 93 H 84 Respiratory Rate Blood Pressure 100/56 Blood Pressure [Left] O2 Sat by Pulse 100 100 Oximetry CBC and BMP: 10/11/18 14:25 10/12/18 04:25 ABG, PT/INR, D-dimer: ABG POC ABG pH 7.243 (7.35-7.45) L 10/08/18 03:33 POC ABG pCO2 33.8 (35-45) L 10/08/18 03:33 POC ABG pO2 126 (80-105) H 10/08/18 03:33 POC ABG HCO3 14.6 (22-26 mml/L) 10/08/18 03:33 POC ABG Total CO2 16 (23-27mmol/L) 10/08/18 03:33 POC ABG O2 Sat 98 10/08/18 03:33 PT/INR, D-dimer PT 25.4 Sec. (12.2-14.9) H 10/07/18 05:12 INR 2.14 (0.87-1.13) H 10/07/18 05:12 Abnormal lab findings: Abnormal Labs 10/07/18 10/07/18 10/07/18 02:20 02:43 02:43 WBC RBC Hgb Hct MCH 25 L RDW 21.5 H Lymph % (Auto) [place] % (Auto) Lymph # 0.9 L [place] # Seg Neutrophils % 78.4 H Seg Neutrophils # PT INR POC ABG pH POC ABG pCO2 POC ABG pO2 Sodium Potassium Chloride 108.0 H Carbon Dioxide 21 L BUN Creatinine 1.5 H Glucose 115 H POC Glucose 136 H Hemoglobin A1c Lactic Acid Calcium Phosphorus AST 51 H Alkaline Phosphatase 257 H Total Protein Albumin 10/07/18 10/07/18 10/07/18 02:43 04:32 05:12 WBC RBC Hgb Hct MCH RDW Lymph % (Auto) [place] % (Auto) Lymph # [place] # Seg Neutrophils % Seg Neutrophils # PT 25.4 H INR 2.14 H POC ABG pH POC ABG pCO2 33.6 L POC ABG pO2 69 L Sodium Potassium Chloride Carbon Dioxide BUN Creatinine Glucose POC Glucose Hemoglobin A1c Lactic Acid 2.40 H* Calcium Phosphorus AST Alkaline Phosphatase Total Protein Albumin 10/07/18 10/07/18 10/07/18 06:28 18:39 20:26 WBC RBC Hgb Hct MCH RDW Lymph % (Auto) [place] % (Auto) Lymph # [place] # Seg Neutrophils % Seg Neutrophils # PT INR POC ABG pH POC ABG pCO2 POC ABG pO2 Sodium Potassium Chloride Carbon Dioxide BUN Creatinine Glucose POC Glucose 164 H 440 H > 500 H Hemoglobin A1c Lactic Acid Calcium Phosphorus AST Alkaline Phosphatase Total Protein Albumin 10/07/18 10/07/18 10/07/18 20:28 21:53 22:08 WBC RBC Hgb Hct MCH RDW Lymph % (Auto) [place] % (Auto) Lymph # [place] # Seg Neutrophils % Seg Neutrophils # PT INR POC ABG pH POC ABG pCO2 POC ABG pO2 Sodium 136 L D Potassium 6.4 H* D Chloride Carbon Dioxide 10 L D BUN 30 H Creatinine 2.0 H Glucose 544 H* POC Glucose 483 H > 500 H Hemoglobin A1c Lactic Acid Calcium 7.0 L D Phosphorus AST Alkaline Phosphatase Total Protein Albumin 10/07/18 10/07/18 10/07/18 22:08 22:08 22:56 WBC RBC Hgb Hct MCH RDW Lymph % (Auto) [place] % (Auto) Lymph # [place] # Seg Neutrophils % Seg Neutrophils # PT INR POC ABG pH POC ABG pCO2 POC ABG pO2 Sodium Potassium Chloride Carbon Dioxide BUN Creatinine Glucose POC Glucose 462 H Hemoglobin A1c 10.2 H Lactic Acid Calcium Phosphorus 7.40 H AST Alkaline Phosphatase Total Protein Albumin 10/07/18 10/08/18 10/08/18 23:39 00:58 02:09 WBC RBC Hgb Hct MCH RDW Lymph % (Auto) [place] % (Auto) Lymph # [place] # Seg Neutrophils % Seg Neutrophils # PT INR POC ABG pH POC ABG pCO2 POC ABG pO2 Sodium Potassium Chloride Carbon Dioxide BUN Creatinine Glucose POC Glucose 396 H 375 H 285 H Hemoglobin A1c Lactic Acid Calcium Phosphorus AST Alkaline Phosphatase Total Protein Albumin 10/08/18 10/08/18 10/08/18 03:10 03:33 04:05 WBC RBC Hgb Hct MCH RDW Lymph % (Auto) [place] % (Auto) Lymph # [place] # Seg Neutrophils % Seg Neutrophils # PT INR POC ABG pH 7.243 L POC ABG pCO2 33.8 L POC ABG pO2 126 H Sodium Potassium 5.3 H Chloride 110.7 H Carbon Dioxide 14 L BUN 33 H Creatinine 2.2 H Glucose 193 H POC Glucose 251 H Hemoglobin A1c Lactic Acid Calcium 7.0 L Phosphorus AST Alkaline Phosphatase 155 H Total Protein 5.2 L D Albumin 2.6 L 10/08/18 10/08/18 10/08/18 04:05 04:05 04:09 WBC 11.8 H RBC 3.32 L Hgb 8.3 L Hct 27.5 L D MCH 25 L RDW 22.0 H Lymph % (Auto) 6.8 L [place] % (Auto) 12.0 H Lymph # 0.8 L [place] # 1.4 H Seg Neutrophils % 80.6 H Seg Neutrophils # 9.5 H PT INR POC ABG pH POC ABG pCO2 POC ABG pO2 Sodium Potassium Chloride Carbon Dioxide BUN Creatinine Glucose POC Glucose 175 H Hemoglobin A1c Lactic Acid 3.70 H* Calcium Phosphorus AST Alkaline Phosphatase Total Protein Albumin 10/08/18 10/08/18 10/08/18 05:07 06:05 07:22 WBC RBC Hgb Hct MCH RDW Lymph % (Auto) [place] % (Auto) Lymph # [place] # Seg Neutrophils % Seg Neutrophils # PT INR POC ABG pH POC ABG pCO2 POC ABG pO2 Sodium Potassium Chloride Carbon Dioxide BUN Creatinine Glucose POC Glucose 125 H 122 H 134 H Hemoglobin A1c Lactic Acid Calcium Phosphorus AST Alkaline Phosphatase Total Protein Albumin Chest x-ray: image reviewed (ETT in position, sternotomy wires, mechanical cardiac valve, right lower lobe infitrate)
[2018-10-08 08:43] LABS: Calcium 6.6 mg/dL (8.4-10.2)
[2018-10-08] MEDS: VANCOMYCIN/NS 1 GM/250 ML 1 GM/250 ML BAG IV SCH (09:09)
[2018-10-08] MEDS: PEPCID IV SCH ×2 (09:14→22:16)
[2018-10-08] MEDS: SODIUM CHLORIDE FLUSH SYRINGE 10 ML IV SCH ×2 (09:14→22:11)
[2018-10-08] MEDS ORDERED: SODIUM BICARBONATE FEEDTUBE PRN (10:00)
[2018-10-08] MEDS ORDERED: PANCREAZE DR 10,500 UNIT FEEDTUBE PRN (10:00)
[2018-10-08] MEDS ORDERED: SIMPLE SYRUP FEEDTUBE PRN ×2 (10:00)
[2018-10-08] MEDS ORDERED: NACL 0.9% 1000 ML 1,000 ML IV ONE (10:00)
--- NOTE | 2018-10-08 11:11 | Progress Note ---
Assessment and Plan Assessment and plan: 48 year old woman with history of coronary artery disease, status post cabbage, diabetes, hypertension who was brought to the emergency room for altered mental status. She was found to have hypoglycemia, she was also having convulsions at the time of admission. The patient was intubated, sp dextrose she was put on the ventilator she was found to have pneumonia and CHF flare and started on antibiotics. 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, treated as type 1, uncontrolled, a1c 10.2 Continue insulins, brittle DM with episodes of hypoglycemia and hyperglycemia, labile glc Mazin upon ckd stage 3 Nephrology input appreciated, avoid nephrotoxins, continue diuretics Hyperkalemia Improving with insulin and diuretics htn urgency; optimize bp meds Marijuana abuse dvt ppx- lovenox Diagnosis status epilepticus hypoglycemia aspiration pneumonia type 2 diabetes coronary artery disease acute metabolic encephalopathy acute respiratory failure mechanical ventilator less than 96 hours CCT 33 mins History Interval history: intubated was agitated and improved with fentanyl ggt no vomiting no fever, no more seizures Hospitalist Physical - Physical exam Narrative exam: General.: appears ill HEENT: Moist mucous membranes, extraocular muscles intact, no lymphadenopathy Neck: supple Cardiac: S1-S2 heard Lungs: rales Abdomen: soft , nontender, nondistended, bowel sounds positive Extremities: no edema clubbing or cyanosis Skin: no rash or lesions Neurologic: sedated Psych: sedated - Constitutional Vitals: Temp Pulse Resp BP Pulse Ox 97.8 F 81 18 114/61 100 10/08/18 07:23 10/08/18 08:51 10/08/18 07:30 10/08/18 08:51 10/08/18 08:51 General appearance: Present: no acute distress, other (mildly agitated) Results - Labs CBC & Chem 7: 10/08/18 17:00 10/11/18 05:00 Labs: Laboratory Last Values WBC 11.8 K/mm3 (4.5-11.0) H 10/08/18 04:05 RBC 3.32 M/mm3 (3.65-5.03) L 10/08/18 04:05 Hgb 8.3 gm/dl (10.1-14.3) L 10/08/18 04:05 Hct 27.5 % (30.3-42.9) L D 10/08/18 04:05 MCV 83 fl (79-97) 10/08/18 04:05 MCH 25 pg (28-32) L 10/08/18 04:05 MCHC 30 % (30-34) 10/08/18 04:05 RDW 22.0 % (13.2-15.2) H 10/08/18 04:05 Plt Count 318 K/mm3 (140-440) 10/08/18 04:05 Lymph % (Auto) 6.8 % (13.4-35.0) L 10/08/18 04:05 [place] % (Auto) 12.0 % (0.0-7.3) H 10/08/18 04:05 Eos % (Auto) 0.1 % (0.0-4.3) 10/08/18 04:05 Baso % (Auto) 0.5 % (0.0-1.8) 10/08/18 04:05 Lymph # 0.8 K/mm3 (1.2-5.4) L 10/08/18 04:05 [place] # 1.4 K/mm3 (0.0-0.8) H 10/08/18 04:05 Eos # 0.0 K/mm3 (0.0-0.4) 10/08/18 04:05 Baso # 0.1 K/mm3 (0.0-0.1) 10/08/18 04:05 Seg Neutrophils % 80.6 % (40.0-70.0) H 10/08/18 04:05 Seg Neutrophils # 9.5 K/mm3 (1.8-7.7) H 10/08/18 04:05 PT 25.4 Sec. (12.2-14.9) H 10/07/18 05:12 INR 2.14 (0.87-1.13) H 10/07/18 05:12 POC ABG pH 7.243 (7.35-7.45) L 10/08/18 03:33 POC ABG pCO2 33.8 (35-45) L 10/08/18 03:33 POC ABG pO2 126 (80-105) H 10/08/18 03:33 POC ABG HCO3 14.6 (22-26 mml/L) 10/08/18 03:33 POC ABG Total CO2 16 (23-27mmol/L) 10/08/18 03:33 POC ABG O2 Sat 98 10/08/18 03:33 POC ABG Base Excess -13 ((-2) - (+3)mmol/L) 10/08/18 03:33 FiO2 35 % 10/08/18 03:33 Sodium 142 mmol/L (137-145) 10/08/18 08:09 Potassium 5.2 mmol/L (3.6-5.0) H 10/08/18 08:09 Chloride 112.4 mmol/L (98-107) H 10/08/18 08:09 Carbon Dioxide 17 mmol/L (22-30) L 10/08/18 08:09 Anion Gap 18 mmol/L 10/08/18 08:09 BUN 32 mg/dL (7-17) H 10/08/18 08:09 Creatinine 2.1 mg/dL (0.7-1.2) H 10/08/18 08:09 Estimated GFR 30 ml/min 10/08/18 08:09 BUN/Creatinine Ratio 15 % 10/08/18 08:09 Glucose 148 mg/dL (65-100) H 10/08/18 08:09 POC Glucose 115 (70-105) H 10/08/18 10:21 Hemoglobin A1c 10.2 % (4-6) H 10/07/18 22:08 Lactic Acid 1.80 mmol/L (0.7-2.0) 10/08/18 08:09 Calcium 6.6 mg/dL (8.4-10.2) L 10/08/18 08:09 Phosphorus 7.40 mg/dL (2.5-4.5) H 10/07/18 22:08 Magnesium 1.90 mg/dL (1.7-2.3) 10/08/18 04:05 Total Bilirubin 0.20 mg/dL (0.1-1.2) 10/08/18 04:05 Direct Bilirubin < 0.2 mg/dL (0-0.2) 10/07/18 02:43 Indirect Bilirubin 0.5 mg/dL 10/07/18 02:43 AST 26 units/L (5-40) 10/08/18 04:05 ALT 22 units/L (7-56) 10/08/18 04:05 Alkaline Phosphatase 155 units/L (35-129) H 10/08/18 04:05 Ammonia 40.0 umol/L (25-60) 10/07/18 02:43 Troponin T < 0.010 ng/mL (0.00-0.029) 10/07/18 08:59 C-Reactive Protein 0.20 mg/dL (0.00-1.30) 10/07/18 14:55 Total Protein 5.2 g/dL (6.3-8.2) L D 10/08/18 04:05 Albumin 2.6 g/dL (3.9-5) L 10/08/18 04:05 Albumin/Globulin Ratio 1.0 % 10/08/18 04:05 Urine Color Straw (Yellow) 10/07/18 02:34 Urine Turbidity Clear (Clear) 10/07/18 02:34 Urine pH 7.0 (5.0-7.0) 10/07/18 02:34 Ur Specific [place] 1.006 (1.003-1.030) 10/07/18 02:34 Urine Protein 100 mg/dl mg/dL (Negative) 10/07/18 02:34 Urine Glucose (UA) Neg mg/dL (Negative) 10/07/18 02:34 Urine Ketones Neg mg/dL (Negative) 10/07/18 02:34 Urine Blood Sm (Negative) 10/07/18 02:34 Urine Nitrite Neg (Negative) 10/07/18 02:34 Urine Bilirubin Neg (Negative) 10/07/18 02:34 Urine Urobilinogen < 2.0 mg/dL (<2.0) 10/07/18 02:34 Ur Leukocyte Esterase Tr (Negative) 10/07/18 02:34 Urine WBC (Auto) 1.0 /HPF (0.0-6.0) 10/07/18 02:34 Urine RBC (Auto) 5.0 /HPF (0.0-6.0) 10/07/18 02:34 U Epithel Cells (Auto) 1.0 /HPF (0-13.0) 10/07/18 02:34 Hyaline Casts 3 /LPF 10/07/18 02:34 Urine Mucus Few /HPF 10/07/18 02:34 Urine Opiates Screen Presumptive negative 10/07/18 02:34 Urine Methadone Screen Presumptive negative 10/07/18 02:34 Ur Barbiturates Screen Presumptive negative 10/07/18 02:34 Ur Phencyclidine Scrn Presumptive negative 10/07/18 02:34 Ur Amphetamines Screen Presumptive negative 10/07/18 02:34 U Benzodiazepines Scrn Presumptive negative 10/07/18 02:34 Urine Cocaine Screen Presumptive negative 10/07/18 02:34 U Marijuana (THC) Screen Presumptive positive 10/07/18 02:34 Drugs of Abuse Note Disclamer 10/07/18 02:34 Active Medications - Current Medications Current Medications: Generic Name Dose Route Start Last Admin Trade Name Freq PRN Reason Stop Dose Admin Acetaminophen 650 mg 10/07/18 04:59 Tylenol PO Q4H PRN Pain MILD(1-3)/Fever >100.5/RODRIGUEZ Lipase/Protease/Amylase 1 each 10/08/18 10:00 Pancreaze 10,500 Unit FEEDTUBE PRN PRN For Clogged Feeding Tube Dextrose 50 ml 10/07/18 20:42 D50w (25gm) Syringe IV PRN PRN Hypoglycemia Famotidine 10 mg 10/07/18 10:00 10/08/18 09:14 Pepcid IV 10 mg BID ULI Administration Fentanyl 50 mcg 10/07/18 09:07 10/07/18 14:32 Sublimaze IV 50 mcg Q10MIN PRN Administration ANALGESIA Heparin Sodium (Porcine) 5,000 unit 10/07/18 17:00 10/08/18 09:10 Heparin SUB-Q 5,000 unit Q8H ULI Administration Hydralazine HCl 10 mg 10/07/18 05:07 10/07/18 05:25 Apresoline IV 10 mg Q4H PRN Administration Blood Pressure Hydrophilic Ointment 1 applic 10/07/18 02:40 Vaseline Lip Therapy TP Q2HR PRN Dry Lips Midazolam HCl 100 mg/ Sodium 100 mls @ 2 mls/hr 10/07/18 07:00 10/07/18 14:44 Chloride IV 0 mg/hr TITR ULI 0 mls/hr Titration Protocol 2 MG/HR Fentanyl Citrate 2,000 mcg in 100 mls @ 3.402 mls/hr 10/07/18 10:00 10/08/18 00:20 Fentanyl Drip Premix IV 1 mcg/kg/hr TITR ULI 3.402 mls/hr Administration Protocol 1 MCG/KG/HR Vancomycin HCl 1 gm in 250 mls @ 250 mls/hr 10/08/18 08:00 10/08/18 09:09 Vancomycin/Ns 1 Gm/250 Ml IV 250 mls/hr Q24H ULI Administration Piperacillin Sod/Tazobactam Sod 3.375 gm in 50 mls @ 100 mls/hr 10/07/18 16:00 10/08/18 09:13 Zosyn/Ns 3.375gm/50ml IV 100 mls/hr Q6H ULI Administration Insulin Human Regular 100 100 mls @ 1 mls/hr 10/07/18 23:45 10/08/18 07:12 units/ Sodium Chloride IV 1.5 units/hr TITR ULI 1.5 mls/hr Titration Protocol 1 UNITS/HR Dextrose/Sodium Chloride 1,000 mls @ 125 mls/hr 10/08/18 11:00 D5/0.45ns IV DIRECT ULI Insulin Human Lispro 0 unit 10/07/18 23:00 10/08/18 00:00 Humalog SUB-Q Not Given Q6HR [facility] Protocol Midazolam HCl 2 mg 10/07/18 06:03 Versed IV Q10MIN PRN Sedation Multi-Ingred Cream/Lotion/Oil/Oint 1 applic 10/07/18 02:40 Artificial Tears Ophth Oint OU Q4HR PRN Dry Eye(s) Ondansetron HCl 4 mg 10/07/18 04:59 Zofran IV Q8H PRN Nausea And Vomiting Simple Syrup 15 ml 10/08/18 10:00 Simple Syrup FEEDTUBE PRN PRN Hypoglycemia Simple Syrup 30 ml 10/08/18 10:00 Simple Syrup FEEDTUBE PRN PRN Hypoglycemia Sodium Bicarbonate 325 mg 10/08/18 10:00 Sodium Bicarbonate FEEDTUBE PRN PRN For Clogged Feeding Tube Sodium Chloride 10 ml 10/07/18 10:00 10/08/18 09:14 Sodium Chloride Flush Syringe 10 Ml IV 10 ml BID ULI Administration Sodium Chloride 10 ml 10/07/18 04:59 Sodium Chloride Flush Syringe 10 Ml IV PRN PRN LINE FLUSH Nutrition/Malnutrition Assess - Dietary Evaluation Nutrition/Malnutrition Findings: Nutrition Notes Start: 10/07/18 12:17 Freq: Status: Active Protocol: Document 10/08/18 09:13 RYAN (Rec: 10/08/18 09:22 RYAN [email or web address]) Nutrition Notes Need for Assessment generated from: MD Order Initial or Follow up Reassessment Current Diagnosis Coronary Artery Disease, Diabetes,Sepsis,Hypertension, Respiratory Failure Other Pertinent Diagnosis DKA, AMS Current Diet NPO Labs/Tests A1c 10.2 K 5.2 BUN 32 Cr 2.1 Pertinent Medications Insulin gtt, D5 1/2NS + 20mEq KCl at 125ml/hr Height 5 ft 2 in Weight 68.039 kg [place] Body Weight (kg) 50.00 BMI 27.4 Subjective/Other Information RD consulted for TF. Pt remains on vent support. Burn Absent Trauma Absent #1 Nutrition Diagnosis Inadequate oral intake As Evidenced by Signs and Symptoms pt remains NPO Diagnosis Progress(for reassessment Continues documentation) Is patient on ventilator? Yes Is Patient Ambulatory and/or Out of Bed No REE-([facility]-confined to bed) 1514.256 Calculation Used for Recommendations [facility] Additional Notes PRO: 1.2-2 gkg (82-136 g/day) Fluid: 1 mL/kcal Nutrition Intervention Nutrition Support: Glucerna 1.2 at 55ml/hr with 100ml water flush q4h. Kcal 1,584 Protein (gm) 79 Carbohydrates (gm) 151 Fat (gm) 79 Fluid (mL) 1,063 Fiber (gm) 21 Goal #1 TF tolerance Goal #2 TF to meet 80-100% energy and pro needs Follow-Up By: 10/10/18 Additional Comments F/U: new TF
[2018-10-08] MEDS: D5/0.45NS 1,000 ML IV SCH (12:42)
--- NOTE | 2018-10-08 16:31 | Consultation ---
History of Present Illness - History of Present Illness 48-year-old lady with medical history significant; valve congestive heart fahad lure hypertension, CAD, diabetes mellitus type 2 admitted with altered mental status labs significant for worsening renal function and hyperkalemia as well also found to have elevated lactate patient seen currently intubated review of systems unobtainable Past History Past Medical History: CAD, diabetes, hypertension, other (carotid artery disease) Past Surgical History: CABG, Other (cardiac stent placement) Social history: other (unable to obtain due to altered mental status) Family history: other (unable to obtain due to altered mental status) Medications and Allergies Allergies Allergy/AdvReac Type Severity Reaction Status Date / Time No Known Allergies Allergy Verified 12/03/16 23:01 Home Medications Medication Instructions Recorded Confirmed Last Taken Type Metoprolol [Lopressor TAB] 25 mg PO BID #60 tablet 12/29/16 08/11/18 Unknown Rx Famotidine [Pepcid] 20 mg PO DAILY #30 tablet 02/04/17 08/07/18 Unknown Rx Metoprolol [Lopressor TAB] 50 mg PO TID #90 tablet 02/04/17 08/07/18 Unknown Rx Coumadin 5 mg PO .ASDIR #30 08/13/18 Unknown Rx Ferrous Sulfate [Feosol 325 MG tab] 325 mg PO BID #60 tablet 08/13/18 Unknown Rx Folic Acid [Folvite] 1 mg PO QDAY #30 tablet 08/13/18 Unknown Rx Furosemide [Lasix TAB] 40 mg PO DAILY #30 tablet 08/13/18 08/07/18 Unknown Rx Insulin Glargine [Lantus VIAL] 5 units SUB-Q BIDDIAB 30 Days 08/13/18 Unknown Rx units Multivitamin Tab [Multiple Vitamin 1 each PO QDAY #30 tablet 08/13/18 Unknown Rx TAB (Theragran)] Pantoprazole [Protonix TAB] 40 mg PO DAILY #30 tablet 08/13/18 Unknown Rx Thiamine [Vitamin B-1] 100 mg PO QDAY #30 tablet 08/13/18 Unknown Rx Warfarin [Coumadin] 7.5 mg PO .ASDIR 30 Days tablet 08/13/18 Unknown Rx Active Meds: Active Medications Acetaminophen (Tylenol) 650 mg PO Q4H PRN PRN Reason: Pain MILD(1-3)/Fever >100.5/RODRIGUEZ Lipase/Protease/Amylase (Pancreaze Dr 10,500 Unit) 1 each FEEDTUBE PRN PRN PRN Reason: For Clogged Feeding Tube Dextrose (D50w (25gm) Syringe) 50 ml IV PRN PRN PRN Reason: Hypoglycemia Famotidine (Pepcid) 10 mg IV BID ULI Last Admin: 10/08/18 09:14 Dose: 10 mg Documented by: Fentanyl (Sublimaze) 50 mcg IV Q10MIN PRN PRN Reason: ANALGESIA Last Admin: 10/07/18 14:32 Dose: 50 mcg Documented by: Heparin Sodium (Porcine) (Heparin) 5,000 unit SUB-Q Q8H ULI Last Admin: 10/08/18 09:10 Dose: 5,000 unit Documented by: Hydralazine HCl (Apresoline) 10 mg IV Q4H PRN PRN Reason: Blood Pressure Last Admin: 10/07/18 05:25 Dose: 10 mg Documented by: Hydrophilic Ointment (Vaseline Lip Therapy) 1 applic TP Q2HR PRN PRN Reason: Dry Lips Midazolam HCl 100 mg/ Sodium (Chloride) 100 mls @ 2 mls/hr IV TITR ULI; Protocol Last Titration: 10/07/18 14:44 Dose: 0 mg/hr, 0 mls/hr Documented by: Fentanyl Citrate (Fentanyl Drip Premix) 2,000 mcg in 100 mls @ 3.402 mls/hr IV TITR ULI; Protocol Last Admin: 10/08/18 00:20 Dose: 1 mcg/kg/hr, 3.402 mls/hr Documented by: Vancomycin HCl (Vancomycin/Ns 1 Gm/250 Ml) 1 gm in 250 mls @ 250 mls/hr IV Q24H ULI Last Admin: 10/08/18 09:09 Dose: 250 mls/hr Documented by: Piperacillin Sod/Tazobactam Sod (Zosyn/Ns 3.375gm/50ml) 3.375 gm in 50 mls @ 100 mls/hr IV Q6H ULI Last Admin: 10/08/18 16:14 Dose: 100 mls/hr Documented by: Insulin Human Regular 100 (units/ Sodium Chloride) 100 mls @ 1 mls/hr IV TITR ULI; Protocol Last Titration: 10/08/18 15:23 Dose: 1 units/hr, 1 mls/hr Documented by: Dextrose/Sodium Chloride (D5/0.45ns) 1,000 mls @ 125 mls/hr IV DIRECT [facility] Last Admin: 10/08/18 12:42 Dose: 125 mls/hr Documented by: Insulin Human Lispro (Humalog) 0 unit SUB-Q Q6HR [facility]; Protocol Last Admin: 10/08/18 00:00 Dose: Not Given Documented by: Midazolam HCl (Versed) 2 mg IV Q10MIN PRN PRN Reason: Sedation Multi-Ingred Cream/Lotion/Oil/Oint (Artificial Tears Ophth Oint) 1 applic OU Q4HR PRN PRN Reason: Dry Eye(s) Ondansetron HCl (Zofran) 4 mg IV Q8H PRN PRN Reason: Nausea And Vomiting Simple Syrup (Simple Syrup) 15 ml FEEDTUBE PRN PRN PRN Reason: Hypoglycemia Simple Syrup (Simple Syrup) 30 ml FEEDTUBE PRN PRN PRN Reason: Hypoglycemia Sodium Bicarbonate (Sodium Bicarbonate) 325 mg FEEDTUBE PRN PRN PRN Reason: For Clogged Feeding Tube Sodium Chloride (Sodium Chloride Flush Syringe 10 Ml) 10 ml IV BID [facility] Last Admin: 10/08/18 09:14 Dose: 10 ml Documented by: Sodium Chloride (Sodium Chloride Flush Syringe 10 Ml) 10 ml IV PRN PRN PRN Reason: LINE FLUSH Review of Systems ROS unobtainable: due to mental status Exam - Vital Signs Vital signs: Vital Signs Pulse Resp 112 H 18 10/07/18 01:52 10/07/18 01:52 - General Appearance General appearance: well-developed, well-nourished EENT: ATNC, PERRL, mucous membranes moist Neck: Present: neck supple Respiratory: Ronchi, Decreased Breath Sounds Heart: regular, S1S2 Gastrointestinal: Present: normal, normoactive bowel sounds Integumentary: no rash Neurologic: no focal deficit, confused, disoriented Musculoskeletal: Absent: deferred Psychiatric: other (unable to assess) Results - Lab Results 10/08/18 04:05 10/08/18 08:09 Most recent lab results Calcium 6.6 mg/dL (8.4-10.2) L 10/08/18 08:09 Phosphorus 7.40 mg/dL (2.5-4.5) H 10/07/18 22:08 Magnesium 1.90 mg/dL (1.7-2.3) 10/08/18 04:05 - Image Kidney/bladder ultrasound: other (IV chest x-ray bilateral haziness and pulmonary congestion) Assessment and Plan - Patient Problems (1) ASHELY (acute kidney injury) Current Visit: No Status: Acute Plan to address problem: Acute kidney injury on chronic kidney disease stage III is likely that is about 1.6 g/DL Chest x-ray pulmonary congestion Echocardiogram report reviewed reduced ejection fraction is well Underlying chronic kidney disease is likely secondary to diabetes We'll give a dose of Bumex Monitor response (2) Acidosis Current Visit: No Status: Acute Plan to address problem: Lactic acidosis improved Query cardiogenic in origin Consider repeat echocardiogram continue to trend lactate (3) Acute exacerbation of CHF (congestive heart failure) Current Visit: No Status: Acute Qualifiers: Qualified Code(s): I50.43 - Acute on chronic combined systolic (congestive) and diastolic (congestive) heart failure Plan to address problem: Acute exacerbation of CHF Chest x-ray with pulmonary congestion Echocardiogram with ejection fraction 40% with dilated ventricles We'll give a dose of Bumex (4) Diabetes 1.5, managed as type 1 Current Visit: No Status: Chronic Plan to address problem: Diabetes with complications Monitor fingersticks Initial medications (5) Hyperkalemia Current Visit: Yes Status: Acute Plan to address problem: Hyperkalemia recently elevated sugars We'll give a dose of Bumex Recheck BMP
[2018-10-08] MEDS ORDERED: BUMEX IV ONE (17:00)
[2018-10-08 17:25] LABS: Basophils # (Auto) 0.1 K/mm3 (0.0-0.1); Basophils % (Auto) 0.5 % (0.0-1.8); Eosinophils # (Auto) 0.1 K/mm3 (0.0-0.4); Eosinophils % (Auto) 0.5 % (0.0-4.3); Hematocrit 25.7 % (30.3-42.9); Hemoglobin 7.9 gm/dl (10.1-14.3); Lymphocytes % (Auto) 8.5 % (13.4-35.0); Mean Corpuscular HGB Conc 31 % (30-34); Mean Corpuscular Volume 80 fl (79-97); Monocytes # (Auto) 0.9 K/mm3 (0.0-0.8); Monocytes % (Auto) 7.7 % (0.0-7.3); Platelet Count 313 K/mm3 (140-440); Red Blood Count 3.21 M/mm3 (3.65-5.03)
[2018-10-08 17:39] LABS: Red Cell Distribution Width 21.8 % (13.2-15.2)
[2018-10-08 17:45] LABS: Calcium 6.9 mg/dL (8.4-10.2)
[2018-10-08] MEDS: SUBLIMAZE IV PRN (20:00)
[2018-10-08 21:22] LABS: Calcium 6.7 mg/dL (8.4-10.2)
[2018-10-08] MEDS: VERSED IV PRN (21:43)
[2018-10-08] MEDS ORDERED: HumaLOG SUB-Q SCH (22:00)
[2018-10-08] MEDS: MIDAZOLAM 100 MG in NACL 0.9% 80 ML IV SCH (23:07)
[2018-10-09] MEDS: HumaLOG SUB-Q SCH ×4 (00:14→18:41)
[2018-10-09] MEDS: HEPARIN SUB-Q SCH ×3 (01:00→16:28)
[2018-10-09 01:44] LABS: Calcium 6.9 mg/dL (8.4-10.2)
[2018-10-09] MEDS: D50W (25GM) Syringe IV PRN ×2 (01:49→03:13)
[2018-10-09] MEDS: D5/0.45NS 1,000 ML IV SCH (03:07)
--- NOTE | 2018-10-09 04:20 | XRay Report ---
PROCEDURE: XR CHEST 1V AP TECHNIQUE: Single AP chest HISTORY: follow up respiratory failure COMPARISONS: October 08 FINDINGS: ET tube and NG tube remain in place. Status post median sternotomy with aortic prosthetic valve in place. Right pleural effusion, slightly decreased.. Linear atelectasis of pleural parenchymal scarring in the right lung base. No significant interval change. IMPRESSION: . Slight decrease in right pleural effusion. No other significant interval change. This document is electronically signed by Rojelio Isaac MD., Oct 09 2018 04:18:06 AM ET
[2018-10-09] MEDS: ZOSYN/NS 3.375GM/50ML 3.375 GM/50 ML BAG IV SCH ×4 (05:39→21:23)
[2018-10-09] MEDS: fentaNYL DRIP Premix 2,000 MCG/100 ML BAG IV SCH ×3 (06:49→22:19)
[2018-10-09] MEDS: VANCOMYCIN/NS 1 GM/250 ML 1 GM/250 ML BAG IV SCH (08:11)
[2018-10-09] MEDS: PEPCID IV SCH ×2 (09:13→21:23)
[2018-10-09] MEDS: SODIUM CHLORIDE FLUSH SYRINGE 10 ML IV SCH ×2 (09:13→21:24)
--- NOTE | 2018-10-09 11:36 | Progress Note ---
Assessment and Plan Acute hypoxemic respiratory failure, on mechanical ventilatory support. Symptomatic hypoglycemia. Seizures, possibly related to the hypoglycemia. Acute encephalopathy, toxic metabolic. Mild Hyponatremia Hyperkalemia s/p CABG with mechanical valve History of cardiomyopathy. (EF 40%) Right pleural effusion with infiltrate- probable aspiration History of diabetes. Hypertension. Coagulopathy that is probably related to her Coumadin use at home ABG on current setings 7.36/33/98/ Bicarb 18.3 Get BMP and CBC at 4pm Start Seroquel for agitaion and wean off benzodiazepine Continue with Zosyn and Vancomycin, monitor INR closely and adjust coumadin dosing accordingly Continue all other care as documented below -Continue full MVS -Wean supplemental oxygen to keep O2 sats 88-90% -Lung protective strategies -Daily ABGs/CXR for now -VAP bundle addressed -Monitor renal indices closely -Avoid nephrotoxic agents, adjust all medications for CrCL -Strict intake and output monitoring -Daily SAT & SBT -Sedation target for RASS 0 to -1 -Stress ulcer prophylaxis -VTE prophylaxis- anticoagulated. Has a mechanical valve , has to be anticoagulated with coumadin. Keep INR 2.5 to 3.5 -Tube feedings, lace a small bowel feeding tube and start Glucerna 1.5 -Get nutrition consult -Aspiration precautions -Accuchecks with glycemic control. Target glucose of 140-180 mg/dL -Bronchodilators with pulmonary hygiene per RT -Maintenance of sleep -wake cycle -Mobility as tolerated by hemodynamics -Influenza and pneumonia vaccination per protocol ..care plan discussed at length with RN/RT at the bedside PROGNOSIS:GUARDED CONDITION: CRITICAL CODE STATUS: FULL CODE The high probability of a clinically significant, sudden or life-threatening deterioration of the [respiratory, neurology, renal, endocrine] system(s) required my full and direct attention, intervention and personal management. The aggregate critical care time was [65] minutes without overlap. Time includes spent on; [x] Data Review and interpretation [x] Patient assessment and monitoring of vital signs [x] Documentation [x] Medication orders and management Subjective Date of service: 10/09/18 Interval history: Patient is seen today for: Acute hypoxemic respiratory failure, on mechanical ventilatory support; Symptomatic hypoglycemia; Seizures, possibly related to the hypoglycemia; Acute encephalopathy, toxic metabolic; Mild Hyponatremia; History of cardiomyopathy. (EF 40%) Seen and examined at bedside; 24hour events reviewed; nursing and respiratory care staff consulted; no adverse overnight events reported to me; remains on MVS; on midazolam infusion, no fevers, tolerating tube feedings, no vomiting mad e improvement from a metabolic and lab perspective based on changes made yesterday. No labs ordered this morning. Objective - Exam Narrative Exam: General appearance:lethargic in NAD , spontaneous eye opening on verbal command, intubated Eyes: anicteric sclerae, moist conjunctivae; no lid-lag; PERRLA HENT: Atraumatic; oropharynx ETT at 23cm at the lip, large tongue Neck: Trachea midline; supple, no thyromegaly or lymphadenopathy Lungs: coarse breath sounds bilaterlly, dimished at the bases CV: RRR, mechanical tones Abdomen: Soft, non-tender; no masses or hepatosplenomegaly Extremities: No peripheral edema or extremity lymphadenopathy Skin: Normal temperature, turgor and texture; no rash, ulcers or subcutaneous nodules Psych: Unable to assess Neuro: lethargic Vital Signs - 12hr 10/08/18 10/09/18 10/09/18 23:51 00:00 00:01 Temperature 97.0 F L Pulse Rate 69 66 65 Respiratory 19 18 Rate Blood Pressure 117/64 104/62 104/62 O2 Sat by Pulse 100 100 100 Oximetry 10/09/18 10/09/18 10/09/18 00:30 01:00 01:31 Temperature Pulse Rate 64 71 64 Respiratory 18 18 18 Rate Blood Pressure 105/62 99/61 98/61 O2 Sat by Pulse 99 100 99 Oximetry 10/09/18 10/09/18 10/09/18 02:00 02:31 03:01 Temperature Pulse Rate 59 L 59 L 59 L Respiratory 18 18 18 Rate Blood Pressure 114/69 114/69 99/59 O2 Sat by Pulse 99 100 100 Oximetry 10/09/18 10/09/18 10/09/18 03:31 04:00 04:01 Temperature 96.3 F L Pulse Rate 60 62 Respiratory 18 18 Rate Blood Pressure 115/66 109/69 O2 Sat by Pulse 100 100 Oximetry 10/09/18 10/09/18 10/09/18 04:31 04:42 05:00 Temperature Pulse Rate 65 63 77 Respiratory 18 19 Rate Blood Pressure 111/66 111/66 125/86 O2 Sat by Pulse 100 100 100 Oximetry 10/09/18 10/09/18 10/09/18 05:31 06:01 06:31 Temperature Pulse Rate 70 74 86 Respiratory 18 19 17 Rate Blood Pressure 112/64 109/63 111/50 O2 Sat by Pulse 100 100 99 Oximetry 10/09/18 10/09/18 10/09/18 06:57 07:01 07:31 Temperature Pulse Rate 75 91 H 64 Respiratory 13 18 Rate Blood Pressure 111/50 109/60 109/60 O2 Sat by Pulse 100 100 Oximetry 10/09/18 10/09/18 10/09/18 08:00 08:01 08:31 Temperature 97.2 F L Pulse Rate 62 74 Respiratory 18 18 Rate Blood Pressure 120/71 111/70 O2 Sat by Pulse 100 Oximetry 10/09/18 10/09/18 10/09/18 09:00 09:31 10:01 Temperature Pulse Rate 70 68 66 Respiratory 18 18 18 Rate Blood Pressure 128/68 137/78 137/78 O2 Sat by Pulse 100 100 100 Oximetry 10/09/18 10/09/18 10/09/18 10:31 11:01 11:31 Temperature Pulse Rate 64 65 68 Respiratory 18 18 18 Rate Blood Pressure 134/78 139/77 129/80 O2 Sat by Pulse 100 100 100 Oximetry CBC and BMP: 10/11/18 14:25 10/12/18 04:25 ABG, PT/INR, D-dimer: ABG POC ABG pH 7.361 (7.35-7.45) 10/09/18 05:25 POC ABG pCO2 32.3 (35-45) L 10/09/18 05:25 POC ABG pO2 98 (80-105) 10/09/18 05:25 POC ABG HCO3 18.3 (22-26 mml/L) 10/09/18 05:25 POC ABG Total CO2 19 (23-27mmol/L) 10/09/18 05:25 POC ABG O2 Sat 97 10/09/18 05:25 PT/INR, D-dimer PT 25.4 Sec. (12.2-14.9) H 10/07/18 05:12 INR 2.14 (0.87-1.13) H 10/07/18 05:12 Abnormal lab findings: Abnormal Labs 10/07/18 10/07/18 10/07/18 02:20 02:43 02:43 WBC RBC Hgb Hct MCH 25 L RDW 21.5 H Lymph % (Auto) [place] % (Auto) Lymph # 0.9 L [place] # Seg Neutrophils % 78.4 H Seg Neutrophils # PT INR POC ABG pH POC ABG pCO2 POC ABG pO2 Sodium Potassium Chloride 108.0 H Carbon Dioxide 21 L BUN Creatinine 1.5 H Glucose 115 H POC Glucose 136 H Hemoglobin A1c Lactic Acid Calcium Phosphorus AST 51 H Alkaline Phosphatase 257 H NT-Pro-B Natriuret Pep Total Protein Albumin 10/07/18 10/07/18 10/07/18 02:43 04:32 05:12 WBC RBC Hgb Hct MCH RDW Lymph % (Auto) [place] % (Auto) Lymph # [place] # Seg Neutrophils % Seg Neutrophils # PT 25.4 H INR 2.14 H POC ABG pH POC ABG pCO2 33.6 L POC ABG pO2 69 L Sodium Potassium Chloride Carbon Dioxide BUN Creatinine Glucose POC Glucose Hemoglobin A1c Lactic Acid 2.40 H* Calcium Phosphorus AST Alkaline Phosphatase NT-Pro-B Natriuret Pep Total Protein Albumin 10/07/18 10/07/18 10/07/18 06:28 18:39 20:26 WBC RBC Hgb Hct MCH RDW Lymph % (Auto) [place] % (Auto) Lymph # [place] # Seg Neutrophils % Seg Neutrophils # PT INR POC ABG pH POC ABG pCO2 POC ABG pO2 Sodium Potassium Chloride Carbon Dioxide BUN Creatinine Glucose POC Glucose 164 H 440 H > 500 H Hemoglobin A1c Lactic Acid Calcium Phosphorus AST Alkaline Phosphatase NT-Pro-B Natriuret Pep Total Protein Albumin 10/07/18 10/07/18 10/07/18 20:28 21:53 22:08 WBC RBC Hgb Hct MCH RDW Lymph % (Auto) [place] % (Auto) Lymph # [place] # Seg Neutrophils % Seg Neutrophils # PT INR POC ABG pH POC ABG pCO2 POC ABG pO2 Sodium 136 L D Potassium 6.4 H* D Chloride Carbon Dioxide 10 L D BUN 30 H Creatinine 2.0 H Glucose 544 H* POC Glucose 483 H > 500 H Hemoglobin A1c Lactic Acid Calcium 7.0 L D Phosphorus AST Alkaline Phosphatase NT-Pro-B Natriuret Pep Total Protein Albumin 10/07/18 10/07/18 10/07/18 22:08 22:08 22:56 WBC RBC Hgb Hct MCH RDW Lymph % (Auto) [place] % (Auto) Lymph # [place] # Seg Neutrophils % Seg Neutrophils # PT INR POC ABG pH POC ABG pCO2 POC ABG pO2 Sodium Potassium Chloride Carbon Dioxide BUN Creatinine Glucose POC Glucose 462 H Hemoglobin A1c 10.2 H Lactic Acid Calcium Phosphorus 7.40 H AST Alkaline Phosphatase NT-Pro-B Natriuret Pep Total Protein Albumin 10/07/18 10/08/18 10/08/18 23:39 00:58 02:09 WBC RBC Hgb Hct MCH RDW Lymph % (Auto) [place] % (Auto) Lymph # [place] # Seg Neutrophils % Seg Neutrophils # PT INR POC ABG pH POC ABG pCO2 POC ABG pO2 Sodium Potassium Chloride Carbon Dioxide BUN Creatinine Glucose POC Glucose 396 H 375 H 285 H Hemoglobin A1c Lactic Acid Calcium Phosphorus AST Alkaline Phosphatase NT-Pro-B Natriuret Pep Total Protein Albumin 10/08/18 10/08/18 10/08/18 03:10 03:33 04:05 WBC RBC Hgb Hct MCH RDW Lymph % (Auto) [place] % (Auto) Lymph # [place] # Seg Neutrophils % Seg Neutrophils # PT INR POC ABG pH 7.243 L POC ABG pCO2 33.8 L POC ABG pO2 126 H Sodium Potassium 5.3 H Chloride 110.7 H Carbon Dioxide 14 L BUN 33 H Creatinine 2.2 H Glucose 193 H POC Glucose 251 H Hemoglobin A1c Lactic Acid Calcium 7.0 L Phosphorus AST Alkaline Phosphatase 155 H NT-Pro-B Natriuret Pep Total Protein 5.2 L D Albumin 2.6 L 10/08/18 10/08/18 10/08/18 04:05 04:05 04:09 WBC 11.8 H RBC 3.32 L Hgb 8.3 L Hct 27.5 L D MCH 25 L RDW 22.0 H Lymph % (Auto) 6.8 L [place] % (Auto) 12.0 H Lymph # 0.8 L [place] # 1.4 H Seg Neutrophils % 80.6 H Seg Neutrophils # 9.5 H PT INR POC ABG pH POC ABG pCO2 POC ABG pO2 Sodium Potassium Chloride Carbon Dioxide BUN Creatinine Glucose POC Glucose 175 H Hemoglobin A1c Lactic Acid 3.70 H* Calcium Phosphorus AST Alkaline Phosphatase NT-Pro-B Natriuret Pep Total Protein Albumin 10/08/18 10/08/18 10/08/18 05:07 06:05 07:14 WBC RBC Hgb Hct MCH RDW Lymph % (Auto) [place] % (Auto) Lymph # [place] # Seg Neutrophils % Seg Neutrophils # PT INR POC ABG pH POC ABG pCO2 POC ABG pO2 Sodium Potassium Chloride Carbon Dioxide BUN Creatinine Glucose POC Glucose 125 H 122 H 147 H Hemoglobin A1c Lactic Acid Calcium Phosphorus AST Alkaline Phosphatase NT-Pro-B Natriuret Pep Total Protein Albumin 10/08/18 10/08/18 10/08/18 07:22 08:09 08:47 WBC RBC Hgb Hct MCH RDW Lymph % (Auto) [place] % (Auto) Lymph # [place] # Seg Neutrophils % Seg Neutrophils # PT INR POC ABG pH POC ABG pCO2 POC ABG pO2 Sodium Potassium 5.2 H Chloride 112.4 H Carbon Dioxide 17 L BUN 32 H Creatinine 2.1 H Glucose 148 H POC Glucose 134 H 148 H Hemoglobin A1c Lactic Acid Calcium 6.6 L Phosphorus AST Alkaline Phosphatase NT-Pro-B Natriuret Pep Total Protein Albumin 10/08/18 10/08/18 10/08/18 10:21 13:29 14:21 WBC RBC Hgb Hct MCH RDW Lymph % (Auto) [place] % (Auto) Lymph # [place] # Seg Neutrophils % Seg Neutrophils # PT INR POC ABG pH POC ABG pCO2 POC ABG pO2 Sodium Potassium Chloride Carbon Dioxide BUN Creatinine Glucose POC Glucose 115 H 109 H 118 H Hemoglobin A1c Lactic Acid Calcium Phosphorus AST Alkaline Phosphatase NT-Pro-B Natriuret Pep Total Protein Albumin 10/08/18 10/08/18 10/08/18 15:27 17:00 17:00 WBC 11.3 H RBC 3.21 L Hgb 7.9 L Hct 25.7 L MCH 25 L RDW 21.8 H Lymph % (Auto) 8.5 L [place] % (Auto) 7.7 H Lymph # 1.0 L [place] # 0.9 H Seg Neutrophils % 82.8 H Seg Neutrophils # 9.3 H PT INR POC ABG pH POC ABG pCO2 POC ABG pO2 Sodium Potassium Chloride Carbon Dioxide BUN Creatinine Glucose POC Glucose 129 H Hemoglobin A1c Lactic Acid Calcium Phosphorus AST Alkaline Phosphatase NT-Pro-B Natriuret Pep 3097 H Total Protein Albumin 10/08/18 10/08/18 10/08/18 17:07 17:12 18:22 WBC RBC Hgb Hct MCH RDW Lymph % (Auto) [place] % (Auto) Lymph # [place] # Seg Neutrophils % Seg Neutrophils # PT INR POC ABG pH 7.337 L POC ABG pCO2 32.0 L POC ABG pO2 130 H Sodium Potassium Chloride 115.5 H Carbon Dioxide 17 L BUN 30 H Creatinine 1.9 H Glucose 103 H POC Glucose 119 H Hemoglobin A1c Lactic Acid Calcium 6.9 L Phosphorus AST Alkaline Phosphatase NT-Pro-B Natriuret Pep Total Protein Albumin 10/08/18 10/08/18 10/09/18 20:09 20:57 01:10 WBC RBC Hgb Hct MCH RDW Lymph % (Auto) [place] % (Auto) Lymph # [place] # Seg Neutrophils % Seg Neutrophils # PT INR POC ABG pH POC ABG pCO2 POC ABG pO2 Sodium Potassium Chloride 114.3 H 113.7 H Carbon Dioxide 15 L 14 L BUN 29 H 29 H Creatinine 2.1 H 2.0 H Glucose 132 H 39 L* POC Glucose 150 H Hemoglobin A1c Lactic Acid Calcium 6.7 L 6.9 L Phosphorus AST Alkaline Phosphatase NT-Pro-B Natriuret Pep Total Protein Albumin 10/09/18 10/09/18 10/09/18 01:10 01:43 03:20 WBC RBC Hgb Hct MCH RDW Lymph % (Auto) [place] % (Auto) Lymph # [place] # Seg Neutrophils % Seg Neutrophils # PT INR POC ABG pH POC ABG pCO2 POC ABG pO2 Sodium Potassium Chloride Carbon Dioxide BUN Creatinine Glucose POC Glucose < 40 L < 40 L Hemoglobin A1c Lactic Acid Calcium Phosphorus AST Alkaline Phosphatase NT-Pro-B Natriuret Pep 2865 H Total Protein Albumin 10/09/18 10/09/18 10/09/18 04:23 05:03 05:25 WBC RBC Hgb Hct MCH RDW Lymph % (Auto) [place] % (Auto) Lymph # [place] # Seg Neutrophils % Seg Neutrophils # PT INR POC ABG pH POC ABG pCO2 30.6 L 32.3 L POC ABG pO2 118 H Sodium Potassium Chloride Carbon Dioxide BUN Creatinine Glucose POC Glucose 148 H Hemoglobin A1c Lactic Acid Calcium Phosphorus AST Alkaline Phosphatase NT-Pro-B Natriuret Pep Total Protein Albumin 10/09/18 10/09/18 10/09/18 06:00 08:34 09:58 WBC RBC Hgb Hct MCH RDW Lymph % (Auto) [place] % (Auto) Lymph # [place] # Seg Neutrophils % Seg Neutrophils # PT INR POC ABG pH POC ABG pCO2 POC ABG pO2 Sodium Potassium Chloride Carbon Dioxide BUN Creatinine Glucose POC Glucose 173 H 196 H 183 H Hemoglobin A1c Lactic Acid Calcium Phosphorus AST Alkaline Phosphatase NT-Pro-B Natriuret Pep Total Protein Albumin Chest x-ray: image reviewed (Same as yesterday with reduction in the right lung infiltrate)
[2018-10-09] MEDS ORDERED: HumaLOG SUB-Q SCH (12:00)
--- NOTE | 2018-10-09 12:58 | XRay Report ---
EXAM: XR CHEST 1V AP HISTORY: R arm PICC placement TECHNIQUE: AP chest x-ray dated 10/09/2018 at 12:04 PM. COMPARISON: Chest x-ray dated 10/09/2018 at 2:30 AM FINDINGS: An endotracheal tube is noted with the distal tip approximately 4.5 cm above the geronimo (adequate pos ition). A nasogastric tube is noted with the distal tip in the lateral aspect of the middle body of t he stomach. The patient is status post median sternotomy for aortic valve replacement. The heart size is upper li mits of normal. The mediastinum is otherwise grossly unremarkable. The pulmonary vascularity and interstitial markings are diffusely prominent, consistent with CHF or v olume overload in the appropriate clinical setting; differential diagnosis includes (but is not limit ed to) bronchitis and bronchopneumonia in the appropriate clinical setting. There is a small to low moderate right pleural effusion with right basilar consolidative atelectasis (stable). There is a medial left lower lobe/retrocardiac parenchymal opacity which may represent atel ectasis and/or pneumonic infiltrate in the appropriate clinical setting (with mild interval progressi on since previous exam). There is no pneumothorax seen. The visualized bony structures are within nor mal limits. IMPRESSION: 1. Findings consistent with mild CHF or volume overload in the appropriate clinical setting; DDX inc ludes bronchitis and bronchopneumonia in the appropriate clinical setting. Recommend clinical correla tion and appropriate followup evaluation as clinically warranted. 2. Small to low moderate right pleural effusion with right basilar consolidative atelectasis (stable ). 3. Medial left lower lobe/retrocardiac parenchymal opacity which may represent atelectasis and/or pn eumonic infiltrate in the appropriate clinical setting (with mild interval progression since previous exam). This document is electronically signed by Karthikeyan Lam MD., Oct 09 2018 12:56:44 PM ET
[2018-10-09 13:22] LABS: Calcium 6.9 mg/dL (8.4-10.2)
[2018-10-09] MEDS: SODIUM BICARBONATE 150 MEQ in D5W 1,000 ML IV SCH (13:41)
--- NOTE | 2018-10-09 14:21 | Progress Note ---
Assessment and Plan - Patient Problems (1) ASHELY (acute kidney injury) Current Visit: No Status: Acute Plan to address problem: Acute kidney injury on chronic kidney disease stage III Baseline creatinine about 1.6mg/DL Creatinine worsened to 2.1 mg/DL Current creatinine 1.8 mg/DL Chest x-ray pulmonary congestion Echocardiogram report reviewed reduced ejection fraction is well Underlying chronic kidney disease is likely secondary to diabetes We'll give intermittent diuresis with Bumex as needed Monitor response (2) Acidosis Current Visit: No Status: Acute Plan to address problem: Non-anion gap Metabolic acidosis with anion gap metabolic acidosis Non-anion gap acidosis possible RTA No recent diarrhea Anion gap is likely secondary to kidney injury/lactic acidosis/ We'll initiate bicarbonate infusion for now (3) Acute exacerbation of CHF (congestive heart failure) Current Visit: No Status: Acute Plan to address problem: Acute exacerbation of CHF Chest x-ray with pulmonary congestion Echocardiogram with ejection fraction 40% with dilated ventricles We'll give intermittent diuretics as needed (4) Diabetes 1.5, managed as type 1 Current Visit: No Status: Chronic Plan to address problem: Diabetes with complications Monitor fingersticks Continue medications Subjective Interval history: 48-year-old lady with medical history significant for valvular heart disease, congestive heart failure,hypertension, CAD, diabetes mellitus type 2 admitted with altered mental status labs significant for worsening renal function and hyperkalemia as well also found to have elevated lactate patient seen currently intubated review of systems unobtainable She remains intubated FiO2 45% Bilateral extremity edema Objective - Vital Signs Vital signs: Vital Signs - 12hr 10/09/18 10/09/18 10/09/18 02:31 03:01 03:31 Temperature Pulse Rate 59 L 59 L 60 Respiratory 18 18 18 Rate Blood Pressure 114/69 99/59 115/66 O2 Sat by Pulse 100 100 100 Oximetry 10/09/18 10/09/18 10/09/18 04:00 04:01 04:31 Temperature 96.3 F L Pulse Rate 62 65 Respiratory 18 18 Rate Blood Pressure 109/69 111/66 O2 Sat by Pulse 100 100 Oximetry 10/09/18 10/09/18 10/09/18 04:42 05:00 05:31 Temperature Pulse Rate 63 77 70 Respiratory 19 18 Rate Blood Pressure 111/66 125/86 112/64 O2 Sat by Pulse 100 100 100 Oximetry 0510/09/18 10/09/18 06:01 06:31 06:57 Temperature Pulse Rate 74 86 75 Respiratory 19 17 Rate Blood Pressure 109/63 111/50 111/50 O2 Sat by Pulse 100 99 100 Oximetry 10/09/18 10/09/18 10/09/18 07:01 07:31 08:00 Temperature 97.2 F L Pulse Rate 91 H 64 Respiratory 13 18 Rate Blood Pressure 109/60 109/60 O2 Sat by Pulse 100 Oximetry 10/09/18 10/09/18 10/09/18 08:01 08:31 09:00 Temperature Pulse Rate 62 74 70 Respiratory 18 18 18 Rate Blood Pressure 120/71 111/70 128/68 O2 Sat by Pulse 100 100 Oximetry 10/09/18 10/09/18 10/09/18 09:31 10:01 10:31 Temperature Pulse Rate 68 66 64 Respiratory 18 18 18 Rate Blood Pressure 137/78 137/78 134/78 O2 Sat by Pulse 100 100 100 Oximetry 10/09/18 10/09/18 10/09/18 11:01 11:31 12:00 Temperature 97.2 F L Pulse Rate 65 68 73 Respiratory 18 18 Rate Blood Pressure 139/77 129/80 127/73 O2 Sat by Pulse 100 100 100 Oximetry - General Appearance General appearance: well-developed, well-nourished EENT: ATNC, PERRL, mucous membranes moist Neck: no JVD Respiratory: Present: Ronchi, Decreased Breath Sounds Cardiology: regular, S1S2 Gastrointestinal: normal, normoactive bowel sounds Integumentary: no rash Neurologic: confused, other (intubated) Musculoskeletal: deferred Psychiatric: other (unable to assess) - Lab 10/08/18 17:00 10/09/18 12:46 Most recent lab results Calcium 6.9 mg/dL (8.4-10.2) L 10/09/18 12:46 Phosphorus 7.40 mg/dL (2.5-4.5) H 10/07/18 22:08 Magnesium 1.90 mg/dL (1.7-2.3) 10/08/18 04:05 - Imaging Chest x-ray: other (I reviewed chest x-ray with small pleural effusion bilateral opacities posttherapy pulmonary congestion) Medications & Allergies - Medications Allergies/Adverse Reactions: Allergies No Known Allergies Allergy (Verified 12/03/16 23:01) Home Medications: Home Medications Medication Instructions Recorded Confirmed Last Taken Type Metoprolol [Lopressor TAB] 25 mg PO BID #60 tablet 12/29/16 08/11/18 Unknown Rx Famotidine [Pepcid] 20 mg PO DAILY #30 tablet 02/04/17 08/07/18 Unknown Rx Metoprolol [Lopressor TAB] 50 mg PO TID #90 tablet 02/04/17 08/07/18 Unknown Rx Coumadin 5 mg PO .ASDIR #30 08/13/18 Unknown Rx Ferrous Sulfate [Feosol 325 MG tab] 325 mg PO BID #60 tablet 08/13/18 Unknown Rx Folic Acid [Folvite] 1 mg PO QDAY #30 tablet 08/13/18 Unknown Rx Furosemide [Lasix TAB] 40 mg PO DAILY #30 tablet 08/13/18 08/07/18 Unknown Rx Insulin Glargine [Lantus VIAL] 5 units SUB-Q BIDDIAB 30 Days 08/13/18 Unknown Rx units Multivitamin Tab [Multiple Vitamin 1 each PO QDAY #30 tablet 08/13/18 Unknown Rx TAB (Theragran)] Pantoprazole [Protonix TAB] 40 mg PO DAILY #30 tablet 08/13/18 Unknown Rx Thiamine [Vitamin B-1] 100 mg PO QDAY #30 tablet 08/13/18 Unknown Rx Warfarin [Coumadin] 7.5 mg PO .ASDIR 30 Days tablet 08/13/18 Unknown Rx Active Medications: Generic Name Dose Route Start Last Admin Trade Name Freq PRN Reason Stop Dose Admin Acetaminophen 650 mg 10/07/18 04:59 Tylenol PO Q4H PRN Pain MILD(1-3)/Fever >100.5/RODRIGUEZ Lipase/Protease/Amylase 1 each 10/08/18 10:00 Pancreangelica Arredondo 10,500 Unit FEEDTUBE PRN PRN For Clogged Feeding Tube Dextrose 50 ml 10/07/18 20:42 10/09/18 03:13 D50w (25gm) Syringe IV 50 ml PRN PRN Administration Hypoglycemia Famotidine 10 mg 10/07/18 10:00 10/09/18 09:13 Pepcid IV 10 mg BID ULI Administration Fentanyl 50 mcg 10/07/18 09:07 10/08/18 20:00 Sublimaze IV 50 mcg Q10MIN PRN Administration ANALGESIA Heparin Sodium (Porcine) 5,000 unit 10/07/18 17:00 10/09/18 09:12 Heparin SUB-Q 5,000 unit Q8H ULI Administration Hydralazine HCl 10 mg 10/07/18 05:07 10/07/18 05:25 Apresoline IV 10 mg Q4H PRN Administration Blood Pressure Hydrophilic Ointment 1 applic 10/07/18 02:40 Vaseline Lip Therapy TP Q2HR PRN Dry Lips Fentanyl Citrate 2,000 mcg in 100 mls @ 3.402 mls/hr 10/07/18 10:00 10/09/18 06:49 Fentanyl Drip Premix IV 4 mcg/kg/hr TITR ULI 13.608 mls/hr Administration Protocol 1 MCG/KG/HR Vancomycin HCl 1 gm in 250 mls @ 250 mls/hr 10/08/18 08:00 10/09/18 08:11 Vancomycin/Ns 1 Gm/250 Ml IV 250 mls/hr Q24H ULI Administration Piperacillin Sod/Tazobactam Sod 3.375 gm in 50 mls @ 100 mls/hr 10/07/18 16:00 10/09/18 09:45 Zosyn/Ns 3.375gm/50ml IV 100 mls/hr Q6H ULI Administration Sodium Bicarbonate 150 meq/ 1,150 mls @ 75 mls/hr 10/09/18 13:00 10/09/18 13:41 Dextrose IV 75 mls/hr DIRECT ULI Administration Insulin Human Lispro 0 unit 10/09/18 00:00 10/09/18 12:36 Humalog SUB-Q 3 unit Q6HR ULI Administration Protocol Midazolam HCl 2 mg 10/07/18 06:03 10/08/18 21:43 Versed IV 2 mg Q10MIN PRN Administration Sedation Multi-Ingred Cream/Lotion/Oil/Oint 1 applic 10/07/18 02:40 Artificial Tears Ophth Oint OU Q4HR PRN Dry Eye(s) Ondansetron HCl 4 mg 10/07/18 04:59 Zofran IV Q8H PRN Nausea And Vomiting Quetiapine Fumarate 100 mg 10/09/18 22:00 Seroquel PO QHS ULI Simple Syrup 15 ml 10/08/18 10:00 Simple Syrup FEEDTUBE PRN PRN Hypoglycemia Simple Syrup 30 ml 10/08/18 10:00 10/09/18 01:09 Simple Syrup FEEDTUBE 30 ml PRN PRN Administration Hypoglycemia Sodium Bicarbonate 325 mg 10/08/18 10:00 Sodium Bicarbonate FEEDTUBE PRN PRN For Clogged Feeding Tube Sodium Chloride 10 ml 10/07/18 10:00 10/09/18 09:13 Sodium Chloride Flush Syringe 10 Ml IV 10 ml BID ULI Administration Sodium Chloride 10 ml 10/07/18 04:59 Sodium Chloride Flush Syringe 10 Ml IV PRN PRN LINE FLUSH
[2018-10-09] MEDS ORDERED: BUMEX IV ONE (15:00)
--- NOTE | 2018-10-09 15:33 | Progress Note ---
Assessment and Plan Assessment and plan: 48 year old woman with history of coronary artery disease, status post cabbage, diabetes, hypertension who was brought to the emergency room for altered mental status. She was found to have hypoglycemia, she was also having convulsions at the time of admission. The patient was intubated, sp dextrose she was put on the ventilator she was found to have pneumonia and CHF flare and started on antibiotics. 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, treated as type 1, uncontrolled, a1c 10.2 Continue insulins, brittle DM with episodes of hypoglycemia and hyperglycemia, labile glc Mazin upon ckd stage 3, vasomotor nephropathy and likely ATN from sepsis Nephrology input appreciated, avoid nephrotoxins, improving hypernatremia resolving received hypotonic ivf Hyperkalemia Improving with insulin and diuretics htn urgency; optimize bp meds Marijuana abuse dvt ppx- lovenox Diagnosis status epilepticus hypoglycemia aspiration pneumonia type 2 diabetes coronary artery disease acute metabolic encephalopathy acute respiratory failure mechanical ventilator less than 96 hours CCT 33 mins History Interval history: intubated was agitated and improved with fentanyl ggt no vomiting no fever, no more seizures Hospitalist Physical - Physical exam Narrative exam: General.: appears ill HEENT: Moist mucous membranes, extraocular muscles intact, no lymphadenopathy Neck: supple Cardiac: S1-S2 heard Lungs: rales Abdomen: soft , nontender, nondistended, bowel sounds positive Extremities: no edema clubbing or cyanosis Skin: no rash or lesions Neurologic: sedated Psych: sedated - Constitutional Vitals: Temp Pulse Resp BP Pulse Ox 97.2 F L 67 18 122/71 100 10/09/18 12:00 10/09/18 15:00 10/09/18 15:00 10/09/18 15:00 10/09/18 15:00 General appearance: Present: no acute distress, other (mildly agitated) Results - Labs CBC & Chem 7: 10/08/18 17:00 10/11/18 05:00 Labs: Laboratory Last Values WBC 11.3 K/mm3 (4.5-11.0) H 10/08/18 17:00 RBC 3.21 M/mm3 (3.65-5.03) L 10/08/18 17:00 Hgb 7.9 gm/dl (10.1-14.3) L 10/08/18 17:00 Hct 25.7 % (30.3-42.9) L 10/08/18 17:00 MCV 80 fl (79-97) 10/08/18 17:00 MCH 25 pg (28-32) L 10/08/18 17:00 MCHC 31 % (30-34) 10/08/18 17:00 RDW 21.8 % (13.2-15.2) H 10/08/18 17:00 Plt Count 313 K/mm3 (140-440) 10/08/18 17:00 Lymph % (Auto) 8.5 % (13.4-35.0) L 10/08/18 17:00 Mckenzie % (Auto) 7.7 % (0.0-7.3) H 10/08/18 17:00 Eos % (Auto) 0.5 % (0.0-4.3) 10/08/18 17:00 Baso % (Auto) 0.5 % (0.0-1.8) 10/08/18 17:00 Lymph # 1.0 K/mm3 (1.2-5.4) L 10/08/18 17:00 Mckenzie # 0.9 K/mm3 (0.0-0.8) H 10/08/18 17:00 Eos # 0.1 K/mm3 (0.0-0.4) 10/08/18 17:00 Baso # 0.1 K/mm3 (0.0-0.1) 10/08/18 17:00 Seg Neutrophils % 82.8 % (40.0-70.0) H 10/08/18 17:00 Seg Neutrophils # 9.3 K/mm3 (1.8-7.7) H 10/08/18 17:00 PT 25.4 Sec. (12.2-14.9) H 10/07/18 05:12 INR 2.14 (0.87-1.13) H 10/07/18 05:12 POC ABG pH 7.361 (7.35-7.45) 10/09/18 05:25 POC ABG pCO2 32.3 (35-45) L 10/09/18 05:25 POC ABG pO2 98 (80-105) 10/09/18 05:25 POC ABG HCO3 18.3 (22-26 mml/L) 10/09/18 05:25 POC ABG Total CO2 19 (23-27mmol/L) 10/09/18 05:25 POC ABG O2 Sat 97 10/09/18 05:25 POC ABG Base Excess -7 ((-2) - (+3)mmol/L) 10/09/18 05:25 FiO2 30 % 10/09/18 05:25 Sodium 139 mmol/L (137-145) 10/09/18 12:46 Potassium 4.3 mmol/L (3.6-5.0) 10/09/18 12:46 Chloride 110.3 mmol/L (98-107) H 10/09/18 12:46 Carbon Dioxide 16 mmol/L (22-30) L 10/09/18 12:46 Anion Gap 17 mmol/L 10/09/18 12:46 BUN 24 mg/dL (7-17) H 10/09/18 12:46 Creatinine 1.8 mg/dL (0.7-1.2) H 10/09/18 12:46 Estimated GFR 36 ml/min 10/09/18 12:46 BUN/Creatinine Ratio 13 % 10/09/18 12:46 Glucose 207 mg/dL (65-100) H 10/09/18 12:46 POC Glucose 208 (70-105) H 10/09/18 12:25 Hemoglobin A1c 10.2 % (4-6) H 10/07/18 22:08 Lactic Acid 1.50 mmol/L (0.7-2.0) 10/08/18 17:09 Calcium 6.9 mg/dL (8.4-10.2) L 10/09/18 12:46 Phosphorus 7.40 mg/dL (2.5-4.5) H 10/07/18 22:08 Magnesium 1.90 mg/dL (1.7-2.3) 10/08/18 04:05 Total Bilirubin 0.20 mg/dL (0.1-1.2) 10/08/18 04:05 Direct Bilirubin < 0.2 mg/dL (0-0.2) 10/07/18 02:43 Indirect Bilirubin 0.5 mg/dL 10/07/18 02:43 AST 26 units/L (5-40) 10/08/18 04:05 ALT 22 units/L (7-56) 10/08/18 04:05 Alkaline Phosphatase 155 units/L (35-129) H 10/08/18 04:05 Ammonia 40.0 umol/L (25-60) 10/07/18 02:43 Troponin T < 0.010 ng/mL (0.00-0.029) 10/07/18 08:59 C-Reactive Protein 0.20 mg/dL (0.00-1.30) 10/07/18 14:55 NT-Pro-B Natriuret Pep 2865 pg/mL (0-450) H 10/09/18 03:20 Total Protein 5.2 g/dL (6.3-8.2) L D 10/08/18 04:05 Albumin 2.6 g/dL (3.9-5) L 10/08/18 04:05 Albumin/Globulin Ratio 1.0 % 10/08/18 04:05 Urine Color Straw (Yellow) 10/07/18 02:34 Urine Turbidity Clear (Clear) 10/07/18 02:34 Urine pH 7.0 (5.0-7.0) 10/07/18 02:34 Ur Specific [place] 1.006 (1.003-1.030) 10/07/18 02:34 Urine Protein 100 mg/dl mg/dL (Negative) 10/07/18 02:34 Urine Glucose (UA) Neg mg/dL (Negative) 10/07/18 02:34 Urine Ketones Neg mg/dL (Negative) 10/07/18 02:34 Urine Blood Sm (Negative) 10/07/18 02:34 Urine Nitrite Neg (Negative) 10/07/18 02:34 Urine Bilirubin Neg (Negative) 10/07/18 02:34 Urine Urobilinogen < 2.0 mg/dL (<2.0) 10/07/18 02:34 Ur Leukocyte Esterase Tr (Negative) 10/07/18 02:34 Urine WBC (Auto) 1.0 /HPF (0.0-6.0) 10/07/18 02:34 Urine RBC (Auto) 5.0 /HPF (0.0-6.0) 10/07/18 02:34 U Epithel Cells (Auto) 1.0 /HPF (0-13.0) 10/07/18 02:34 Hyaline Casts 3 /LPF 10/07/18 02:34 Urine Mucus Few /HPF 10/07/18 02:34 Urine Opiates Screen Presumptive negative 10/07/18 02:34 Urine Methadone Screen Presumptive negative 10/07/18 02:34 Ur Barbiturates Screen Presumptive negative 10/07/18 02:34 Ur Phencyclidine Scrn Presumptive negative 10/07/18 02:34 Ur Amphetamines Screen Presumptive negative 10/07/18 02:34 U Benzodiazepines Scrn Presumptive negative 10/07/18 02:34 Urine Cocaine Screen Presumptive negative 10/07/18 02:34 U Marijuana (THC) Screen Presumptive positive 10/07/18 02:34 Drugs of Abuse Note Disclamer 10/07/18 02:34 Active Medications - Current Medications Current Medications: Generic Name Dose Route Start Last Admin Trade Name Freq PRN Reason Stop Dose Admin Acetaminophen 650 mg 10/07/18 04:59 Tylenol PO Q4H PRN Pain MILD(1-3)/Fever >100.5/RODRIGUEZ Lipase/Protease/Amylase 1 each 10/08/18 10:[address] 10,500 Unit FEEDTUBE PRN PRN For Clogged Feeding Tube Dextrose 50 ml 10/07/18 20:42 10/09/18 03:13 D50w (25gm) Syringe IV 50 ml PRN PRN Administration Hypoglycemia Famotidine 10 mg 10/07/18 10:00 10/09/18 09:13 Pepcid IV 10 mg BID ULI Administration Fentanyl 50 mcg 10/07/18 09:07 10/08/18 20:00 Sublimaze IV 50 mcg Q10MIN PRN Administration ANALGESIA Heparin Sodium (Porcine) 5,000 unit 10/07/18 17:00 10/09/18 09:12 Heparin SUB-Q 5,000 unit Q8H ULI Administration Hydralazine HCl 10 mg 10/07/18 05:07 10/07/18 05:25 Apresoline IV 10 mg Q4H PRN Administration Blood Pressure Hydrophilic Ointment 1 applic 10/07/18 02:40 Vaseline Lip Therapy TP Q2HR PRN Dry Lips Fentanyl Citrate 2,000 mcg in 100 mls @ 3.402 mls/hr 10/07/18 10:00 10/09/18 15:04 Fentanyl Drip Premix IV 3 mcg/kg/hr TITR ULI 10.206 mls/hr Administration Protocol 1 MCG/KG/HR Vancomycin HCl 1 gm in 250 mls @ 250 mls/hr 10/08/18 08:00 10/09/18 08:11 Vancomycin/Ns 1 Gm/250 Ml IV 250 mls/hr Q24H ULI Administration Piperacillin Sod/Tazobactam Sod 3.375 gm in 50 mls @ 100 mls/hr 10/07/18 16:00 10/09/18 09:45 Zosyn/Ns 3.375gm/50ml IV 100 mls/hr Q6H ULI Administration Sodium Bicarbonate 150 meq/ 1,150 mls @ 75 mls/hr 10/09/18 13:00 10/09/18 13 :41 Dextrose IV 75 mls/hr DIRECT ULI Administration Insulin Human Lispro 0 unit 10/09/18 00:00 10/09/18 12:36 Humalog SUB-Q 3 unit Q6HR ULI Administration Protocol Midazolam HCl 2 mg 10/07/18 06:03 10/08/18 21:43 Versed IV 2 mg Q10MIN PRN Administration Sedation Multi-Ingred Cream/Lotion/Oil/Oint 1 applic 10/07/18 02:40 Artificial Tears Ophth Oint OU Q4HR PRN Dry Eye(s) Ondansetron HCl 4 mg 10/07/18 04:59 Zofran IV Q8H PRN Nausea And Vomiting Quetiapine Fumarate 100 mg 10/09/18 22:00 Seroquel PO QHS ULI Simple Syrup 15 ml 10/08/18 10:00 Simple Syrup FEEDTUBE PRN PRN Hypoglycemia Simple Syrup 30 ml 10/08/18 10:00 10/09/18 01:09 Simple Syrup FEEDTUBE 30 ml PRN PRN Administration Hypoglycemia Sodium Bicarbonate 325 mg 10/08/18 10:00 Sodium Bicarbonate FEEDTUBE PRN PRN For Clogged Feeding Tube Sodium Chloride 10 ml 10/07/18 10:00 10/09/18 09:13 Sodium Chloride Flush Syringe 10 Ml IV 10 ml BID ULI Administration Sodium Chloride 10 ml 10/07/18 04:59 Sodium Chloride Flush Syringe 10 Ml IV PRN PRN LINE FLUSH Nutrition/Malnutrition Assess - Dietary Evaluation Nutrition/Malnutrition Findings: Nutrition Notes Start: 10/07/18 12:17 Freq: Status: Active Protocol: Document 10/08/18 09:13 RYAN (Rec: 10/08/18 09:22 RYAN [email or web address]) Nutrition Notes Need for Assessment generated from: MD Order Initial or Follow up Reassessment Current Diagnosis Coronary Artery Disease, Diabetes,Sepsis,Hypertension, Respiratory Failure Other Pertinent Diagnosis DKA, AMS Current Diet NPO Labs/Tests A1c 10.2 K 5.2 BUN 32 Cr 2.1 Pertinent Medications Insulin gtt, D5 1/2NS + 20mEq KCl at 125ml/hr Height 5 ft 2 in Weight 68.039 kg [place] Body Weight (kg) 50.00 BMI 27.4 Subjective/Other Information RD consulted for TF. Pt remains on vent support. Burn Absent Trauma Absent #1 Nutrition Diagnosis Inadequate oral intake As Evidenced by Signs and Symptoms pt remains NPO Diagnosis Progress(for reassessment Continues documentation) Is patient on ventilator? Yes Is Patient Ambulatory and/or Out of Bed No REE-([facility]-confined to bed) 1514.256 Calculation Used for Recommendations [facility] Additional Notes PRO: 1.2-2 gkg (82-136 g/day) Fluid: 1 mL/kcal Nutrition Intervention Nutrition Support: Glucerna 1.2 at 55ml/hr with 100ml water flush q4h. Kcal 1,584 Protein (gm) 79 Carbohydrates (gm) 151 Fat (gm) 79 Fluid (mL) 1,063 Fiber (gm) 21 Goal #1 TF tolerance Goal #2 TF to meet 80-100% energy and pro needs Follow-Up By: 10/10/18 Additional Comments F/U: new TF
[2018-10-09] MEDS: LANTUS SUB-Q SCH (21:23)
[2018-10-10] MEDS: HEPARIN SUB-Q SCH ×3 (00:11→18:12)
[2018-10-10] MEDS: HumaLOG SUB-Q SCH ×3 (00:12→23:57)
[2018-10-10] MEDS: ZOSYN/NS 3.375GM/50ML 3.375 GM/50 ML BAG IV SCH ×3 (04:36→22:36)
[2018-10-10] MEDS: SUBLIMAZE IV PRN (04:37)
[2018-10-10] MEDS: SODIUM BICARBONATE 150 MEQ in D5W 1,000 ML IV SCH (05:34)
[2018-10-10] MEDS: D50W (25GM) Syringe IV PRN (05:46)
[2018-10-10 06:19] LABS: Calcium 7.4 mg/dL (8.4-10.2)
--- NOTE | 2018-10-10 07:10 | XRay Report ---
PROCEDURE: XR ABDOMEN 1V AP TECHNIQUE: Abdominal radiograph, single view. HISTORY: Oral-Gastric tube placement verification COMPARISONS: None . FINDINGS: Bowel gas pattern: Nonobstructive . Masses or calcifications: None . Bony structures: No significant abnormality . Other: NG tube is in the stomach. . IMPRESSION: NG tube is in the stomach. This document is electronically signed by Marcos Dutton MD., Oct 10 2018 07:08:46 AM ET
--- NOTE | 2018-10-10 07:58 | XRay Report ---
PROCEDURE: XR CHEST 1V AP TECHNIQUE: Chest radiograph single view. HISTORY: follow up respiratory failure COMPARISONS: None . FINDINGS: Heart: Heart is borderline enlarged.. Mediastinum/Vessels: Normal. Lungs/Pleural space: There are infiltrates at the right lung base. There is a small right pleural ef fusion. There is no pneumothorax.. Bony thorax: No acute osseous abnormality. Life support devices: The endotracheal tube is in the mid trachea. NG tube is in the stomach. There i s a right-sided central venous catheter. The tip is in the superior vena cava.. IMPRESSION: Heart is borderline enlarged.. There are infiltrates at the right lung base. There is a small right pleural effusion. There is no pneumothorax.. The endotracheal tube is in the mid trachea. NG tube is in the stomach. There is a right-sided central venous catheter. The tip is in the superior vena cava.. This document is electronically signed by Marcos Dutton MD., Oct 10 2018 07:56:21 AM ET
--- NOTE | 2018-10-10 09:16 | Progress Note ---
Assessment and Plan Impression * Acute kidney injury * Metabolic acidosis * Hypernatremia * Mechanical aortic valve * Sepsis * Seizure disorder * Transaminitis * Encephalopathy Recommendations * Patient's renal function seems to be stabilizing * He does have underlying chronic kidney disease. Baseline creatinine approximately 1.6. * Patient is currently nonoliguric * She is however getting hypernatremic. Reduced tonicity of her IV fluid * Acidosis is also better. Reduced amount of bicarbonate and IV fluid as well. * Chest x-ray showing right basal infiltrates and some pleural effusion. * Echocardiogram showing ejection fraction of 40% with dilated ventricles * Plan to discontinue IV fluid once hypernatremia and acidosis has been corrected Subjective Date of service: 10/10/18 Interval history: Patient currently in the ICU. He remains on the ventilator. On 30% FiO2. Bicarbonate drip infusing at 75 mL an hour Objective - Vital Signs Vital signs: Vital Signs - 12hr 10/09/18 10/09/18 10/09/18 21:30 22:00 22:30 Temperature Pulse Rate 73 70 85 Respiratory 18 18 18 Rate Blood Pressure 127/74 120/69 105/61 O2 Sat by Pulse 100 100 100 Oximetry 10/09/18 10/09/18 10/09/18 22:39 23:00 23:30 Temperature Pulse Rate 91 H 99 H 92 H Respiratory 19 18 18 Rate Blood Pressure 105/61 110/76 113/71 O2 Sat by Pulse 100 99 100 Oximetry 10/10/18 10/10/18 10/10/18 00:00 00:30 01:00 Temperature 98.3 F Pulse Rate 88 82 87 Respiratory 16 18 18 Rate Blood Pressure 116/69 124/75 118/75 O2 Sat by Pulse 100 100 100 Oximetry 10/10/18 10/10/18 10/10/18 01:30 02:00 02:30 Temperature Pulse Rate 78 86 82 Respiratory 19 18 18 Rate Blood Pressure 115/69 101/65 111/69 O2 Sat by Pulse 100 100 100 Oximetry 10/10/18 10/10/18 10/10/18 03:00 03:30 04:00 Temperature 98.8 F Pulse Rate 77 79 72 Respiratory 18 18 18 Rate Blood Pressure 118/68 118/72 125/74 O2 Sat by Pulse 100 100 100 Oximetry 10/10/18 10/10/18 10/10/18 04:30 05:00 05:12 Temperature Pulse Rate 77 89 105 H Respiratory 18 18 Rate Blood Pressure 122/75 111/65 121/78 O2 Sat by Pulse 100 100 100 Oximetry 10/10/18 10/10/18 10/10/18 05:30 06:00 06:30 Temperature Pulse Rate 83 82 82 Respiratory 18 18 18 Rate Blood Pressure 119/67 120/70 125/75 O2 Sat by Pulse 100 100 100 Oximetry 10/10/18 10/10/18 07:58 08:00 Temperature 98.4 F Pulse Rate 85 Respiratory Rate Blood Pressure 128/76 O2 Sat by Pulse 100 Oximetry - General Appearance General appearance: well-developed, well-nourished, appears stated age, in tubated EENT: PERRL, mucous membranes moist Neck: no JVD, no thyromegaly, no carotid bruit, supple Respiratory: Present: Clear to Ascultation, Other (midline scar noted) Cardiology: regular, normal heart rate, S1S2, no murmurs, other (mechanical valve sounds noted) Gastrointestinal: normal, normoactive bowel sounds Integumentary: no rash, other (trace edema) - Lab 10/08/18 17:00 10/10/18 05:45 Most recent lab results Calcium 7.4 mg/dL (8.4-10.2) L 10/10/18 05:45 Phosphorus 7.40 mg/dL (2.5-4.5) H 10/07/18 22:08 Magnesium 1.90 mg/dL (1.7-2.3) 10/08/18 04:05 Medications & Allergies - Medications Allergies/Adverse Reactions: Allergies No Known Allergies Allergy (Verified 12/03/16 23:01) Home Medications: Home Medications Medication Instructions Recorded Confirmed Last Taken Type Metoprolol [Lopressor TAB] 25 mg PO BID #60 tablet 12/29/16 08/11/18 Unknown Rx Famotidine [Pepcid] 20 mg PO DAILY #30 tablet 02/04/17 08/07/18 Unknown Rx Metoprolol [Lopressor TAB] 50 mg PO TID #90 tablet 02/04/17 08/07/18 Unknown Rx Coumadin 5 mg PO .ASDIR #30 08/13/18 Unknown Rx Ferrous Sulfate [Feosol 325 MG tab] 325 mg PO BID #60 tablet 08/13/18 Unknown Rx Folic Acid [Folvite] 1 mg PO QDAY #30 tablet 08/13/18 Unknown Rx Furosemide [Lasix TAB] 40 mg PO DAILY #30 tablet 08/13/18 08/07/18 Unknown Rx Insulin Glargine [Lantus VIAL] 5 units SUB-Q BIDDIAB 30 Days 08/13/18 Unknown Rx units Multivitamin Tab [Multiple Vitamin 1 each PO QDAY #30 tablet 08/13/18 Unknown Rx TAB (Theragran)] Pantoprazole [Protonix TAB] 40 mg PO DAILY #30 tablet 08/13/18 Unknown Rx Thiamine [Vitamin B-1] 100 mg PO QDAY #30 tablet 08/13/18 Unknown Rx Warfarin [Coumadin] 7.5 mg PO .ASDIR 30 Days tablet 08/13/18 Unknown Rx Active Medications: Generic Name Dose Route Start Last Admin Trade Name Freq PRN Reason Stop Dose Admin Acetaminophen 650 mg 10/07/18 04:59 Tylenol PO Q4H PRN Pain MILD(1-3)/Fever >100.5/RODRIGUEZ Lipase/Protease/Amylase 1 each 10/08/18 10:[address] 10,500 Unit FEEDTUBE PRN PRN For Clogged Feeding Tube Dextrose 50 ml 10/07/18 20:42 10/10/18 05:46 D50w (25gm) Syringe IV 50 ml PRN PRN Administration Hypoglycemia Famotidine 20 mg 10/10/18 10:00 Pepcid PO DAILY ULI Fentanyl 50 mcg 10/07/18 09:07 10/10/18 04:37 Sublimaze IV 50 mcg Q10MIN PRN Administration ANALGESIA Heparin Sodium (Porcine) 5,000 unit 10/07/18 17:00 10/10/18 00:11 Heparin SUB-Q 5,000 unit Q8H ULI Administration Hydralazine HCl 10 mg 10/07/18 05:07 10/07/18 05:25 Apresoline IV 10 mg Q4H PRN Administration Blood Pressure Hydrophilic Ointment 1 applic 10/07/18 02:40 Vaseline Lip Therapy TP Q2HR PRN Dry Lips Fentanyl Citrate 2,000 mcg in 100 mls @ 3.402 mls/hr 10/07/18 10:00 10/09/18 22:19 Fentanyl Drip Premix IV 3 mcg/kg/hr TITR ULI 10.206 mls/hr Administration Protocol 1 MCG/KG/HR Piperacillin Sod/Tazobactam Sod 3.375 gm in 50 mls @ 100 mls/hr 10/07/18 16:00 10/10/18 04:36 Zosyn/Ns 3.375gm/50ml IV 10/11/18 15:59 100 mls/hr Q6H ULI Administration Sodium Bicarbonate 150 meq/ 1,150 mls @ 75 mls/hr 10/09/18 13:00 10/10/18 05:34 Dextrose IV 75 mls/hr DIRECT ULI Administration Insulin Glargine 5 units 10/09/18 22:00 10/09/18 21:23 Lantus SUB-Q 5 units QHS ULI Administration Insulin Human Lispro 0 unit 10/09/18 00:00 10/10/18 05:53 Humalog SUB-Q Not Given Q6HR [facility] Protocol Midazolam HCl 2 mg 10/07/18 06:03 10/08/18 21:43 Versed IV 2 mg Q10MIN PRN Administration Sedation Multi-Ingred Cream/Lotion/Oil/Oint 1 applic 10/07/18 02:40 Artificial Tears Ophth Oint OU Q4HR PRN Dry Eye(s) Ondansetron HCl 4 mg 10/07/18 04:59 Zofran IV Q8H PRN Nausea And Vomiting Quetiapine Fumarate 100 mg 10/09/18 22:00 10/09/18 21:22 Seroquel PO 100 mg QHS ULI Administration Simple Syrup 15 ml 10/08/18 10:00 Simple Syrup FEEDTUBE PRN PRN Hypoglycemia Simple Syrup 30 ml 10/08/18 10:00 10/09/18 01:09 Simple Syrup FEEDTUBE 30 ml PRN PRN Administration Hypoglycemia Sodium Bicarbonate 325 mg 10/08/18 10:00 Sodium Bicarbonate FEEDTUBE PRN PRN For Clogged Feeding Tube Sodium Chloride 10 ml 10/07/18 10:00 10/09/18 21:24 Sodium Chloride Flush Syringe 10 Ml IV 10 ml BID ULI Administration Sodium Chloride 10 ml 10/07/18 04:59 Sodium Chloride Flush Syringe 10 Ml IV PRN PRN LINE FLUSH
[2018-10-10] MEDS: PEPCID PO SCH (09:47)
[2018-10-10] MEDS ORDERED: D5W 1,000 ML with SODIUM BICARBONATE 75 MEQ IV SCH (11:30)
--- NOTE | 2018-10-10 13:13 | Progress Note ---
Assessment and Plan Acute hypoxemic respiratory failure, on mechanical ventilatory support. Symptomatic hypoglycemia. Seizures, possibly related to the hypoglycemia. Acute encephalopathy, toxic metabolic. Mild Hyponatremia History of cardiomyopathy. (EF 40%) Right pleural effusion. Pulmonary edema bilateral. History of diabetes. Hypertension. Coagulopathy that is probably related to her Coumadin use at home. - reduce set rate to 12/min on MVS - repeat ABG at 9pm tonight - continue D5W but with 1.5 Amps NaHCO3 per liter re: hypernatremia - avoid further volume overload - nephrology input appreciated - optimize cardiac function per cardiology team - add daytime seroquel re: agitation - ID input appreciated; de-escalate AB's based on clinical and microbiologic data - daily SAT's & SBT assessment as tolerated - sedation target for RASS 0 to -1 - continue bronchodilators with pulmonary hygiene per RT - continue GI & VTE prophylaxis - continue to wean supplemental oxygen to keep O2 sats 88-90% - Lung protective strategies - Daily ABGs/CXR for now - VAP bundle addressed - Continue cardioprotective measures - Replete electrolytes as indicated - Monitor renal indices closely - Avoid nephrotoxic agents, adjust all medications for CrCL - Strict intake and output monitoring - Tube feedings as tolerated - Accuchecks with glycemic control. Target glucose of 140-180 mg/dL - Maintenance of sleep -wake cycle - Mobility as tolerated by hemodynamics - Influenza and pneumonia vaccination per protocol ..care plan discussed at length with RN/RT at the bedside ..discussed in ICU-IDT rounds PROGNOSIS: GUARDED CONDITION: CRITICAL CODE STATUS: FULL CODE The high probability of a clinically significant, sudden or life-threatening deterioration of the [respiratory, neurology, renal] system(s) required my full and direct attention, intervention and personal management. The aggregate c ritical care time was [34] minutes without overlap. Time includes spent on; [x] Data Review and interpretation [x] Patient assessment and monitoring of vital signs [x] Documentation [x] Medication orders and management Subjective Date of service: 10/10/18 Principal diagnosis: Ac hypoxemic resp failure; Seizures (?hypoglycemic); Ac encephalopathy(T/M) Interval history: Patient is seen today for: Acute hypoxemic respiratory failure, on mechanical ventilatory support; Symptomatic hypoglycemia; Seizures, possibly related to the hypoglycemia; Acute encephalopathy, toxic metabolic; Mild Hyponatremi; History of cardiomyopathy. (EF 40%) Seen and examined at bedside; 24hour events reviewed; nursing and respiratory care staff consulted; no adverse overnight events reported to me; remains on MVS; agitated during sedation vacations; denies acute uncontrolled pain at time of my examination; failed SBT's with apnea's otherwise Objective Vital Signs - 12hr 10/10/18 10/10/18 10/10/18 01:30 02:00 02:30 Temperature Pulse Rate 78 86 82 Respiratory 19 18 18 Rate Blood Pressure 115/69 101/65 111/69 O2 Sat by Pulse 100 100 100 Oximetry 10/10/18 10/10/18 10/10/18 03:00 03:30 04:00 Temperature 98.8 F Pulse Rate 77 79 72 Respiratory 18 18 18 Rate Blood Pressure 118/68 118/72 125/74 O2 Sat by Pulse 100 100 100 Oximetry 10/10/18 10/10/18 10/10/18 04:30 05:00 05:12 Temperature Pulse Rate 77 89 105 H Respiratory 18 18 Rate Blood Pressure 122/75 111/65 121/78 O2 Sat by Pulse 100 100 100 Oximetry 10/10/18 10/10/18 10/10/18 05:30 06:00 06:30 Temperature Pulse Rate 83 82 82 Respiratory 18 18 18 Rate Blood Pressure 119/67 120/70 125/75 O2 Sat by Pulse 100 100 100 Oximetry 10/10/18 10/10/18 10/10/18 07:00 07:30 07:58 Temperature Pulse Rate 81 79 85 Respiratory 13 18 Rate Blood Pressure 122/75 127/72 128/76 O2 Sat by Pulse 100 100 100 Oximetry 10/10/18 10/10/18 10/10/18 08:00 08:30 09:00 Temperature 98.4 F Pulse Rate 87 79 78 Respiratory 18 18 18 Rate Blood Pressure 128/76 132/74 129/72 O2 Sat by Pulse 100 100 100 Oximetry 10/10/18 10/10/18 10/10/18 09:30 10:00 10:30 Temperature Pulse Rate 78 76 96 H Respiratory 18 18 20 Rate Blood Pressure 134/80 127/78 134/87 O2 Sat by Pulse 100 100 100 Oximetry 10/10/18 10/10/18 11:01 11:33 Temperature Pulse Rate 81 80 Respiratory 18 Rate Blood Pressure 151/44 131/74 O2 Sat by Pulse 100 100 Oximetry Constitutional: no acute distress, other (middle aged AAF, normocephalic and with mildly increased resp effort at rest) Eyes: non-icteric ENT: oropharynx moist, other (ETT 23 cm CATERINA) Neck: supple, no lymphadenopathy, no JVD Effort: mildly labored Ascultation: Bilateral: diminished breath sounds (bases), rales Percussion: Bilateral: not dull Cardiovascular: regular rate and rhythm Gastrointestinal: normoactive bowel sounds, soft, non-tender, non-distended, other (No HSM) Integumentary: normal Extremities: no cyanosis, pulses normal, no ischemia or petechiae, edema (trace to 1+) Neurologic: non-focal exam (grossly), pupils equal and round, motor strength normal and Psychiatric: anxious CBC and BMP: 10/08/18 17:00 10/10/18 05:45 ABG, PT/INR, D-dimer: ABG POC ABG pH 7.350 (7.35-7.45) 10/10/18 05:16 POC ABG pCO2 39.1 (35-45) 10/10/18 05:16 POC ABG pO2 93 (80-105) 10/10/18 05:16 POC ABG HCO3 21.6 (22-26 mml/L) 10/10/18 05:16 POC ABG Total CO2 23 (23-27mmol/L) 10/10/18 05:16 POC ABG O2 Sat 97 10/10/18 05:16 PT/INR, D-dimer PT 25.4 Sec. (12.2-14.9) H 10/07/18 05:12 INR 2.14 (0.87-1.13) H 10/07/18 05:12 Abnormal lab findings: Abnormal Labs 10/07/18 10/07/18 10/07/18 02:20 02:43 02:43 WBC RBC Hgb Hct MCH 25 L RDW 21.5 H Lymph % (Auto) [place] % (Auto) Lymph # 0.9 L [place] # Seg Neutrophils % 78.4 H Seg Neutrophils # PT INR POC ABG pH POC ABG pCO2 POC ABG pO2 Sodium Potassium Chloride 108.0 H Carbon Dioxide 21 L BUN Creatinine 1.5 H Glucose 115 H POC Glucose 136 H Hemoglobin A1c Lactic Acid Calcium Phosphorus AST 51 H Alkaline Phosphatase 257 H NT-Pro-B Natriuret Pep Total Protein Albumin 10/07/18 10/07/18 10/07/18 02:43 04:32 05:12 WBC RBC Hgb Hct MCH RDW Lymph % (Auto) [place] % (Auto) Lymph # [place] # Seg Neutrophils % Seg Neutrophils # PT 25.4 H INR 2.14 H POC ABG pH POC ABG pCO2 33.6 L POC ABG pO2 69 L Sodium Potassium Chloride Carbon Dioxide BUN Creatinine Glucose POC Glucose Hemoglobin A1c Lactic Acid 2.40 H* Calcium Phosphorus AST Alkaline Phosphatase NT-Pro-B Natriuret Pep Total Protein Albumin 10/07/18 10/07/18 10/07/18 06:28 18:39 20:26 WBC RBC Hgb Hct MCH RDW Lymph % (Auto) [place] % (Auto) Lymph # [place] # Seg Neutrophils % Seg Neutrophils # PT INR POC ABG pH POC ABG pCO2 POC ABG pO2 Sodium Potassium Chloride Carbon Dioxide BUN Creatinine Glucose POC Glucose 164 H 440 H > 500 H Hemoglobin A1c Lactic Acid Calcium Phosphorus AST Alkaline Phosphatase NT-Pro-B Natriuret Pep Total Protein Albumin 10/07/18 10/07/18 10/07/18 20:28 21:53 22:08 WBC RBC Hgb Hct MCH RDW Lymph % (Auto) [place] % (Auto) Lymph # [place] # Seg Neutrophils % Seg Neutrophils # PT INR POC ABG pH POC ABG pCO2 POC ABG pO2 Sodium 136 L D Potassium 6.4 H* D Chloride Carbon Dioxide 10 L D BUN 30 H Creatinine 2.0 H Glucose 544 H* POC Glucose 483 H > 500 H Hemoglobin A1c Lactic Acid Calcium 7.0 L D Phosphorus AST Alkaline Phosphatase NT-Pro-B Natriuret Pep Total Protein Albumin 10/07/18 10/07/18 10/07/18 22:08 22:08 22:56 WBC RBC Hgb Hct MCH RDW Lymph % (Auto) [place] % (Auto) Lymph # [place] # Seg Neutrophils % Seg Neutrophils # PT INR POC ABG pH POC ABG pCO2 POC ABG pO2 Sodium Potassium Chloride Carbon Dioxide BUN Creatinine Glucose POC Glucose 462 H Hemoglobin A1c 10.2 H Lactic Acid Calcium Phosphorus 7.40 H AST Alkaline Phosphatase NT-Pro-B Natriuret Pep Total Protein Albumin 10/07/18 10/08/18 10/08/18 23:39 00:58 02:09 WBC RBC Hgb Hct MCH RDW Lymph % (Auto) [place] % (Auto) Lymph # [place] # Seg Neutrophils % Seg Neutrophils # PT INR POC ABG pH POC ABG pCO2 POC ABG pO2 Sodium Potassium Chloride Carbon Dioxide BUN Creatinine Glucose POC Glucose 396 H 375 H 285 H Hemoglobin A1c Lactic Acid Calcium Phosphorus AST Alkaline Phosphatase NT-Pro-B Natriuret Pep Total Protein Albumin 10/08/18 10/08/18 10/08/18 03:10 03:33 04:05 WBC RBC Hgb Hct MCH RDW Lymph % (Auto) [place] % (Auto) Lymph # [place] # Seg Neutrophils % Seg Neutrophils # PT INR POC ABG pH 7.243 L POC ABG pCO2 33.8 L POC ABG pO2 126 H Sodium Potassium 5.3 H Chloride 110.7 H Carbon Dioxide 14 L BUN 33 H Creatinine 2.2 H Glucose 193 H POC Glucose 251 H Hemoglobin A1c Lactic Acid Calcium 7.0 L Phosphorus AST Alkaline Phosphatase 155 H NT-Pro-B Natriuret Pep Total Protein 5.2 L D Albumin 2.6 L 10/08/18 10/08/18 10/08/18 04:05 04:05 04:09 WBC 11.8 H RBC 3.32 L Hgb 8.3 L Hct 27.5 L D MCH 25 L RDW 22.0 H Lymph % (Auto) 6.8 L [place] % (Auto) 12.0 H Lymph # 0.8 L [place] # 1.4 H Seg Neutrophils % 80.6 H Seg Neutrophils # 9.5 H PT INR POC ABG pH POC ABG pCO2 POC ABG pO2 Sodium Potassium Chloride Carbon Dioxide BUN Creatinine Glucose POC Glucose 175 H Hemoglobin A1c Lactic Acid 3.70 H* Calcium Phosphorus AST Alkaline Phosphatase NT-Pro-B Natriuret Pep Total Protein Albumin 10/08/18 10/08/18 10/08/18 05:07 06:05 07:14 WBC RBC Hgb Hct MCH RDW Lymph % (Auto) [place] % (Auto) Lymph # [place] # Seg Neutrophils % Seg Neutrophils # PT INR POC ABG pH POC ABG pCO2 POC ABG pO2 Sodium Potassium Chloride Carbon Dioxide BUN Creatinine Glucose POC Glucose 125 H 122 H 147 H Hemoglobin A1c Lactic Acid Calcium Phosphorus AST Alkaline Phosphatase NT-Pro-B Natriuret Pep Total Protein Albumin 10/08/18 10/08/18 10/08/18 07:22 08:09 08:47 WBC RBC Hgb Hct MCH RDW Lymph % (Auto) [place] % (Auto) Lymph # [place] # Seg Neutrophils % Seg Neutrophils # PT INR POC ABG pH POC ABG pCO2 POC ABG pO2 Sodium Potassium 5.2 H Chloride 112.4 H Carbon Dioxide 17 L BUN 32 H Creatinine 2.1 H Glucose 148 H POC Glucose 134 H 148 H Hemoglobin A1c Lactic Acid Calcium 6.6 L Phosphorus AST Alkaline Phosphatase NT-Pro-B Natriuret Pep Total Protein Albumin 10/08/18 10/08/18 10/08/18 10:21 13:29 14:21 WBC RBC Hgb Hct MCH RDW Lymph % (Auto) [place] % (Auto) Lymph # [place] # Seg Neutrophils % Seg Neutrophils # PT INR POC ABG pH POC ABG pCO2 POC ABG pO2 Sodium Potassium Chloride Carbon Dioxide BUN Creatinine Glucose POC Glucose 115 H 109 H 118 H Hemoglobin A1c Lactic Acid Calcium Phosphorus AST Alkaline Phosphatase NT-Pro-B Natriuret Pep Total Protein Albumin 10/08/18 10/08/18 10/08/18 15:27 17:00 17:00 WBC 11.3 H RBC 3.21 L Hgb 7.9 L Hct 25.7 L MCH 25 L RDW 21.8 H Lymph % (Auto) 8.5 L [place] % (Auto) 7.7 H Lymph # 1.0 L [place] # 0.9 H Seg Neutrophils % 82.8 H Seg Neutrophils # 9.3 H PT INR POC ABG pH POC ABG pCO2 POC ABG pO2 Sodium Potassium Chloride Carbon Dioxide BUN Creatinine Glucose POC Glucose 129 H Hemoglobin A1c Lactic Acid Calcium Phosphorus AST Alkaline Phosphatase NT-Pro-B Natriuret Pep 3097 H Total Protein Albumin 10/08/18 10/08/18 10/08/18 17:07 17:12 18:22 WBC RBC Hgb Hct MCH RDW Lymph % (Auto) [place] % (Auto) Lymph # [place] # Seg Neutrophils % Seg Neutrophils # PT INR POC ABG pH 7.337 L POC ABG pCO2 32.0 L POC ABG pO2 130 H Sodium Potassium Chloride 115.5 H Carbon Dioxide 17 L BUN 30 H Creatinine 1.9 H Glucose 103 H POC Glucose 119 H Hemoglobin A1c Lactic Acid Calcium 6.9 L Phosphorus AST Alkaline Phosphatase NT-Pro-B Natriuret Pep Total Protein Albumin 10/08/18 10/08/18 10/09/18 20:09 20:57 01:10 WBC RBC Hgb Hct MCH RDW Lymph % (Auto) [place] % (Auto) Lymph # [place] # Seg Neutrophils % Seg Neutrophils # PT INR POC ABG pH POC ABG pCO2 POC ABG pO2 Sodium Potassium Chloride 114.3 H 113.7 H Carbon Dioxide 15 L 14 L BUN 29 H 29 H Creatinine 2.1 H 2.0 H Glucose 132 H 39 L* POC Glucose 150 H Hemoglobin A1c Lactic Acid Calcium 6.7 L 6.9 L Phosphorus AST Alkaline Phosphatase NT-Pro-B Natriuret Pep Total Protein Albumin 10/09/18 10/09/18 10/09/18 01:10 01:43 03:20 WBC RBC Hgb Hct MCH RDW Lymph % (Auto) [place] % (Auto) Lymph # [place] # Seg Neutrophils % Seg Neutrophils # PT INR POC ABG pH POC ABG pCO2 POC ABG pO2 Sodium Potassium Chloride Carbon Dioxide BUN Creatinine Glucose POC Glucose < 40 L < 40 L Hemoglobin A1c Lactic Acid Calcium Phosphorus AST Alkaline Phosphatase NT-Pro-B Natriuret Pep 2865 H Total Protein Albumin 10/09/18 10/09/18 10/09/18 04:23 05:03 05:25 WBC RBC Hgb Hct MCH RDW Lymph % (Auto) [place] % (Auto) Lymph # [place] # Seg Neutrophils % Seg Neutrophils # PT INR POC ABG pH POC ABG pCO2 30.6 L 32.3 L POC ABG pO2 118 H Sodium Potassium Chloride Carbon Dioxide BUN Creatinine Glucose POC Glucose 148 H Hemoglobin A1c Lactic Acid Calcium Phosphorus AST Alkaline Phosphatase NT-Pro-B Natriuret Pep Total Protein Albumin 10/09/18 10/09/18 10/09/18 06:00 08:34 09:58 WBC RBC Hgb Hct MCH RDW Lymph % (Auto) [place] % (Auto) Lymph # [place] # Seg Neutrophils % Seg Neutrophils # PT INR POC ABG pH POC ABG pCO2 POC ABG pO2 Sodium Potassium Chloride Carbon Dioxide BUN Creatinine Glucose POC Glucose 173 H 196 H 183 H Hemoglobin A1c Lactic Acid Calcium Phosphorus AST Alkaline Phosphatase NT-Pro-B Natriuret Pep Total Protein Albumin 10/09/18 10/09/18 10/09/18 12:25 12:46 18:16 WBC RBC Hgb Hct MCH RDW Lymph % (Auto) [place] % (Auto) Lymph # [place] # Seg Neutrophils % Seg Neutrophils # PT INR POC ABG pH POC ABG pCO2 POC ABG pO2 Sodium Potassium Chloride 110.3 H Carbon Dioxide 16 L BUN 24 H Creatinine 1.8 H Glucose 207 H POC Glucose 208 H 177 H Hemoglobin A1c Lactic Acid Calcium 6.9 L Phosphorus AST Alkaline Phosphatase NT-Pro-B Natriuret Pep Total Protein Albumin 10/09/18 10/10/18 10/10/18 21:11 00:11 05:41 WBC RBC Hgb Hct MCH RDW Lymph % (Auto) [place] % (Auto) Lymph # [place] # Seg Neutrophils % Seg Neutrophils # PT INR POC ABG pH POC ABG pCO2 POC ABG pO2 Sodium Potassium Chloride Carbon Dioxide BUN Creatinine Glucose POC Glucose 124 H 156 H 42 L Hemoglobin A1c Lactic Acid Calcium Phosphorus AST Alkaline Phosphatase NT-Pro-B Natriuret Pep Total Protein Albumin 10/10/18 10/10/18 05:45 07:28 WBC RBC Hgb Hct MCH RDW Lymph % (Auto) [place] % (Auto) Lymph # [place] # Seg Neutrophils % Seg Neutrophils # PT INR POC ABG pH POC ABG pCO2 POC ABG pO2 Sodium 146 H D Potassium Chloride 111.2 H Carbon Dioxide BUN 21 H Creatinine 1.8 H Glucose 44 L POC Glucose 114 H Hemoglobin A1c Lactic Acid Calcium 7.4 L Phosphorus AST Alkaline Phosphatase NT-Pro-B Natriuret Pep Total Protein Albumin Chest x-ray: image reviewed (increased volume overload pattern; small bilateral pleural effusions) Allied health notes reviewed: nursing
--- NOTE | 2018-10-10 13:39 | Progress Note ---
Subjective Date of service: 10/10/18 Interval history: went over ther chart and cross checked the CT of the brain it is normal suspect DKA causing encephalopathy EEG ordered Objective - Vital Sign Vital Signs - 12hr 10/10/18 10/10/18 10/10/18 02:00 02:30 03:00 Temperature Pulse Rate 86 82 77 Respiratory 18 18 18 Rate Blood Pressure 101/65 111/69 118/68 O2 Sat by Pulse 100 100 100 Oximetry 10/10/18 10/10/18 10/10/18 03:30 04:00 04:30 Temperature 98.8 F Pulse Rate 79 72 77 Respiratory 18 18 18 Rate Blood Pressure 118/72 125/74 122/75 O2 Sat by Pulse 100 100 100 Oximetry 10/10/18 10/10/18 10/10/18 05:00 05:12 05:30 Temperature Pulse Rate 89 105 H 83 Respiratory 18 18 Rate Blood Pressure 111/65 121/78 119/67 O2 Sat by Pulse 100 100 100 Oximetry 10/10/18 10/10/18 10/10/18 06:00 06:30 07:00 Temperature Pulse Rate 82 82 81 Respiratory 18 18 13 Rate Blood Pressure 120/70 125/75 122/75 O2 Sat by Pulse 100 100 100 Oximetry 10/10/18 10/10/18 10/10/18 07:30 07:58 08:00 Temperature 98.4 F Pulse Rate 79 85 87 Respiratory 18 18 Rate Blood Pressure 127/72 128/76 128/76 O2 Sat by Pulse 100 100 100 Oximetry 10/10/18 10/10/18 10/10/18 08:30 09:00 09:30 Temperature Pulse Rate 79 78 78 Respiratory 18 18 18 Rate Blood Pressure 132/74 129/72 134/80 O2 Sat by Pulse 100 100 100 Oximetry 10/10/18 10/10/18 10/10/18 10:00 10:30 11:01 Temperature Pulse Rate 76 96 H 81 Respiratory 18 20 18 Rate Blood Pressure 127/78 134/87 151/44 O2 Sat by Pulse 100 100 100 Oximetry 10/10/18 11:33 Temperature Pulse Rate 80 Respiratory Rate Blood Pressure 131/74 O2 Sat by Pulse 100 Oximetry - Laboratory Findings CBC and BMP: 10/08/18 17:00 10/10/18 05:45 Abnormal Lab Findings: Abnormal Labs 10/07/18 10/07/18 10/07/18 02:20 02:43 02:43 WBC RBC Hgb Hct MCH 25 L RDW 21.5 H Lymph % (Auto) [place] % (Auto) Lymph # 0.9 L [place] # Seg Neutrophils % 78.4 H Seg Neutrophils # PT INR POC ABG pH POC ABG pCO2 POC ABG pO2 Sodium Potassium Chloride 108.0 H Carbon Dioxide 21 L BUN Creatinine 1.5 H Glucose 115 H POC Glucose 136 H Hemoglobin A1c Lactic Acid Calcium Phosphorus AST 51 H Alkaline Phosphatase 257 H NT-Pro-B Natriuret Pep Total Protein Albumin 10/07/18 10/07/18 10/07/18 02:43 04:32 05:12 WBC RBC Hgb Hct MCH RDW Lymph % (Auto) [place] % (Auto) Lymph # [place] # Seg Neutrophils % Seg Neutrophils # PT 25.4 H INR 2.14 H POC ABG pH POC ABG pCO2 33.6 L POC ABG pO2 69 L Sodium Potassium Chloride Carbon Dioxide BUN Creatinine Glucose POC Glucose Hemoglobin A1c Lactic Acid 2.40 H* Calcium Phosphorus AST Alkaline Phosphatase NT-Pro-B Natriuret Pep Total Protein Albumin 10/07/18 10/07/18 10/07/18 06:28 18:39 20:26 WBC RBC Hgb Hct MCH RDW Lymph % (Auto) [place] % (Auto) Lymph # [place] # Seg Neutrophils % Seg Neutrophils # PT INR POC ABG pH POC ABG pCO2 POC ABG pO2 Sodium Potassium Chloride Carbon Dioxide BUN Creatinine Glucose POC Glucose 164 H 440 H > 500 H Hemoglobin A1c Lactic Acid Calcium Phosphorus AST Alkaline Phosphatase NT-Pro-B Natriuret Pep Total Protein Albumin 10/07/18 10/07/18 10/07/18 20:28 21:53 22:08 WBC RBC Hgb Hct MCH RDW Lymph % (Auto) [place] % (Auto) Lymph # [place] # Seg Neutrophils % Seg Neutrophils # PT INR POC ABG pH POC ABG pCO2 POC ABG pO2 Sodium 136 L D Potassium 6.4 H* D Chloride Carbon Dioxide 10 L D BUN 30 H Creatinine 2.0 H Glucose 544 H* POC Glucose 483 H > 500 H Hemoglobin A1c Lactic Acid Calcium 7.0 L D Phosphorus AST Alkaline Phosphatase NT-Pro-B Natriuret Pep Total Protein Albumin 10/07/18 10/07/18 10/07/18 22:08 22:08 22:56 WBC RBC Hgb Hct MCH RDW Lymph % (Auto) [place] % (Auto) Lymph # [place] # Seg Neutrophils % Seg Neutrophils # PT INR POC ABG pH POC ABG pCO2 POC ABG pO2 Sodium Potassium Chloride Carbon Dioxide BUN Creatinine Glucose POC Glucose 462 H Hemoglobin A1c 10.2 H Lactic Acid Calcium Phosphorus 7.40 H AST Alkaline Phosphatase NT-Pro-B Natriuret Pep Total Protein Albumin 10/07/18 10/08/18 10/08/18 23:39 00:58 02:09 WBC RBC Hgb Hct MCH RDW Lymph % (Auto) [place] % (Auto) Lymph # [place] # Seg Neutrophils % Seg Neutrophils # PT INR POC ABG pH POC ABG pCO2 POC ABG pO2 Sodium Potassium Chloride Carbon Dioxide BUN Creatinine Glucose POC Glucose 396 H 375 H 285 H Hemoglobin A1c Lactic Acid Calcium Phosphorus AST Alkaline Phosphatase NT-Pro-B Natriuret Pep Total Protein Albumin 10/08/18 10/08/18 10/08/18 03:10 03:33 04:05 WBC RBC Hgb Hct MCH RDW Lymph % (Auto) [place] % (Auto) Lymph # [place] # Seg Neutrophils % Seg Neutrophils # PT INR POC ABG pH 7.243 L POC ABG pCO2 33.8 L POC ABG pO2 126 H Sodium Potassium 5.3 H Chloride 110.7 H Carbon Dioxide 14 L BUN 33 H Creatinine 2.2 H Glucose 193 H POC Glucose 251 H Hemoglobin A1c Lactic Acid Calcium 7.0 L Phosphorus AST Alkaline Phosphatase 155 H NT-Pro-B Natriuret Pep Total Protein 5.2 L D Albumin 2.6 L 10/08/18 10/08/18 10/08/18 04:05 04:05 04:09 WBC 11.8 H RBC 3.32 L Hgb 8.3 L Hct 27.5 L D MCH 25 L RDW 22.0 H Lymph % (Auto) 6.8 L [place] % (Auto) 12.0 H Lymph # 0.8 L [place] # 1.4 H Seg Neutrophils % 80.6 H Seg Neutrophils # 9.5 H PT INR POC ABG pH POC ABG pCO2 POC ABG pO2 Sodium Potassium Chloride Carbon Dioxide BUN Creatinine Glucose POC Glucose 175 H Hemoglobin A1c Lactic Acid 3.70 H* Calcium Phosphorus AST Alkaline Phosphatase NT-Pro-B Natriuret Pep Total Protein Albumin 10/08/18 10/08/18 10/08/18 05:07 06:05 07:14 WBC RBC Hgb Hct MCH RDW Lymph % (Auto) [place] % (Auto) Lymph # [place] # Seg Neutrophils % Seg Neutrophils # PT INR POC ABG pH POC ABG pCO2 POC ABG pO2 Sodium Potassium Chloride Carbon Dioxide BUN Creatinine Glucose POC Glucose 125 H 122 H 147 H Hemoglobin A1c Lactic Acid Calcium Phosphorus AST Alkaline Phosphatase NT-Pro-B Natriuret Pep Total Protein Albumin 10/08/18 10/08/18 10/08/18 07:22 08:09 08:47 WBC RBC Hgb Hct MCH RDW Lymph % (Auto) [place] % (Auto) Lymph # [place] # Seg Neutrophils % Seg Neutrophils # PT INR POC ABG pH POC ABG pCO2 POC ABG pO2 Sodium Potassium 5.2 H Chloride 112.4 H Carbon Dioxide 17 L BUN 32 H Creatinine 2.1 H Glucose 148 H POC Glucose 134 H 148 H Hemoglobin A1c Lactic Acid Calcium 6.6 L Phosphorus AST Alkaline Phosphatase NT-Pro-B Natriuret Pep Total Protein Albumin 10/08/18 10/08/18 10/08/18 10:21 13:29 14:21 WBC RBC Hgb Hct MCH RDW Lymph % (Auto) [place] % (Auto) Lymph # [place] # Seg Neutrophils % Seg Neutrophils # PT INR POC ABG pH POC ABG pCO2 POC ABG pO2 Sodium Potassium Chloride Carbon Dioxide BUN Creatinine Glucose POC Glucose 115 H 109 H 118 H Hemoglobin A1c Lactic Acid Calcium Phosphorus AST Alkaline Phosphatase NT-Pro-B Natriuret Pep Total Protein Albumin 10/08/18 10/08/18 10/08/18 15:27 17:00 17:00 WBC 11.3 H RBC 3.21 L Hgb 7.9 L Hct 25.7 L MCH 25 L RDW 21.8 H Lymph % (Auto) 8.5 L [place] % (Auto) 7.7 H Lymph # 1.0 L [place] # 0.9 H Seg Neutrophils % 82.8 H Seg Neutrophils # 9.3 H PT INR POC ABG pH POC ABG pCO2 POC ABG pO2 Sodium Potassium Chloride Carbon Dioxide BUN Creatinine Glucose POC Glucose 129 H Hemoglobin A1c Lactic Acid Calcium Phosphorus AST Alkaline Phosphatase NT-Pro-B Natriuret Pep 3097 H Total Protein Albumin 10/08/18 10/08/18 10/08/18 17:07 17:12 18:22 WBC RBC Hgb Hct MCH RDW Lymph % (Auto) [place] % (Auto) Lymph # [place] # Seg Neutrophils % Seg Neutrophils # PT INR POC ABG pH 7.337 L POC ABG pCO2 32.0 L POC ABG pO2 130 H Sodium Potassium Chloride 115.5 H Carbon Dioxide 17 L BUN 30 H Creatinine 1.9 H Glucose 103 H POC Glucose 119 H Hemoglobin A1c Lactic Acid Calcium 6.9 L Phosphorus AST Alkaline Phosphatase NT-Pro-B Natriuret Pep Total Protein Albumin 10/08/18 10/08/18 10/09/18 20:09 20:57 01:10 WBC RBC Hgb Hct MCH RDW Lymph % (Auto) [place] % (Auto) Lymph # [place] # Seg Neutrophils % Seg Neutrophils # PT INR POC ABG pH POC ABG pCO2 POC ABG pO2 Sodium Potassium Chloride 114.3 H 113.7 H Carbon Dioxide 15 L 14 L BUN 29 H 29 H Creatinine 2.1 H 2.0 H Glucose 132 H 39 L* POC Glucose 150 H Hemoglobin A1c Lactic Acid Calcium 6.7 L 6.9 L Phosphorus AST Alkaline Phosphatase NT-Pro-B Natriuret Pep Total Protein Albumin 10/09/18 10/09/18 10/09/18 01:10 01:43 03:20 WBC RBC Hgb Hct MCH RDW Lymph % (Auto) [place] % (Auto) Lymph # [place] # Seg Neutrophils % Seg Neutrophils # PT INR POC ABG pH POC ABG pCO2 POC ABG pO2 Sodium Potassium Chloride Carbon Dioxide BUN Creatinine Glucose POC Glucose < 40 L < 40 L Hemoglobin A1c Lactic Acid Calcium Phosphorus AST Alkaline Phosphatase NT-Pro-B Natriuret Pep 2865 H Total Protein Albumin 10/09/18 10/09/18 10/09/18 04:23 05:03 05:25 WBC RBC Hgb Hct MCH RDW Lymph % (Auto) [place] % (Auto) Lymph # [place] # Seg Neutrophils % Seg Neutrophils # PT INR POC ABG pH POC ABG pCO2 30.6 L 32.3 L POC ABG pO2 118 H Sodium Potassium Chloride Carbon Dioxide BUN Creatinine Glucose POC Glucose 148 H Hemoglobin A1c Lactic Acid Calcium Phosphorus AST Alkaline Phosphatase NT-Pro-B Natriuret Pep Total Protein Albumin 10/09/18 10/09/18 10/09/18 06:00 08:34 09:58 WBC RBC Hgb Hct MCH RDW Lymph % (Auto) [place] % (Auto) Lymph # [place] # Seg Neutrophils % Seg Neutrophils # PT INR POC ABG pH POC ABG pCO2 POC ABG pO2 Sodium Potassium Chloride Carbon Dioxide BUN Creatinine Glucose POC Glucose 173 H 196 H 183 H Hemoglobin A1c Lactic Acid Calcium Phosphorus AST Alkaline Phosphatase NT-Pro-B Natriuret Pep Total Protein Albumin 10/09/18 10/09/18 10/09/18 12:25 12:46 18:16 WBC RBC Hgb Hct MCH RDW Lymph % (Auto) [place] % (Auto) Lymph # [place] # Seg Neutrophils % Seg Neutrophils # PT INR POC ABG pH POC ABG pCO2 POC ABG pO2 Sodium Potassium Chloride 110.3 H Carbon Dioxide 16 L BUN 24 H Creatinine 1.8 H Glucose 207 H POC Glucose 208 H 177 H Hemoglobin A1c Lactic Acid Calcium 6.9 L Phosphorus AST Alkaline Phosphatase NT-Pro-B Natriuret Pep Total Protein Albumin 10/09/18 10/10/18 10/10/18 21:11 00:11 05:41 WBC RBC Hgb Hct MCH RDW Lymph % (Auto) [place] % (Auto) Lymph # [place] # Seg Neutrophils % Seg Neutrophils # PT INR POC ABG pH POC ABG pCO2 POC ABG pO2 Sodium Potassium Chloride Carbon Dioxide BUN Creatinine Glucose POC Glucose 124 H 156 H 42 L Hemoglobin A1c Lactic Acid Calcium Phosphorus AST Alkaline Phosphatase NT-Pro-B Natriuret Pep Total Protein Albumin 10/10/18 10/10/18 05:45 07:28 WBC RBC Hgb Hct MCH RDW Lymph % (Auto) [place] % (Auto) Lymph # [place] # Seg Neutrophils % Seg Neutrophils # PT INR POC ABG pH POC ABG pCO2 POC ABG pO2 Sodium 146 H D Potassium Chloride 111.2 H Carbon Dioxide BUN 21 H Creatinine 1.8 H Glucose 44 L POC Glucose 114 H Hemoglobin A1c Lactic Acid Calcium 7.4 L Phosphorus AST Alkaline Phosphatase NT-Pro-B Natriuret Pep Total Protein Albumin
[2018-10-10] MEDS ORDERED: PANCREAZE DR 10,500 UNIT FEEDTUBE PRN (14:26)
[2018-10-10] MEDS ORDERED: SIMPLE SYRUP FEEDTUBE PRN ×2 (14:26)
[2018-10-10] MEDS ORDERED: SODIUM BICARBONATE FEEDTUBE PRN (14:26)
[2018-10-10] MEDS: REGLAN IV SCH ×2 (18:08→22:35)
[2018-10-10] MEDS: SODIUM CHLORIDE FLUSH SYRINGE 10 ML IV SCH (18:14)
[2018-10-10] MEDS: fentaNYL DRIP Premix 2,000 MCG/100 ML BAG IV SCH (18:46)
--- NOTE | 2018-10-10 21:59 | Progress Note ---
Assessment and Plan Assessment and plan: 48 year old woman with history of coronary artery disease, status post cabbage, diabetes, hypertension who was brought to the emergency room for altered mental status. She was found to have hypoglycemia, she was also having convulsions at the time of admission. The patient was intubated, sp dextrose she was put on the ventilator she was found to have pneumonia and CHF flare and started on antibiotics. 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, treated as type 1, uncontrolled, a1c 10.2 Continue insulins, brittle DM with episodes of hypoglycemia and hyperglycemia, labile glc Mazin upon ckd stage 3, vasomotor nephropathy and likely ATN from sepsis Nephrology input appreciated, avoid nephrotoxins, improving hypernatremia resolved after she received hypotonic ivf Hyperkalemia Improving with insulin and diuretics htn urgency; optimize bp meds Marijuana abuse dvt ppx- lovenox Diagnosis status epilepticus hypoglycemia aspiration pneumonia type 2 diabetes coronary artery disease acute metabolic encephalopathy acute respiratory failure mechanical ventilator less than 96 hours CCT 33 mins History Interval history: intubated was agitated and improved with fentanyl ggt no vomiting no fever, no more seizures Hospitalist Physical - Physical exam Narrative exam: General.: appears ill HEENT: Moist mucous membranes, extraocular muscles intact, no lymphadenopathy Neck: supple Cardiac: S1-S2 heard Lungs: rales Abdomen: soft , nontender, nondistended, bowel sounds positive Extremities: no edema clubbing or cyanosis Skin: no rash or lesions Neurologic: sedated Psych: sedated - Constitutional Vitals: Temp Pulse Resp BP Pulse Ox 98.7 F 96 H 9 L 148/101 100 10/10/18 12:00 10/10/18 21:00 10/10/18 21:00 10/10/18 21:00 10/10/18 21:00 General appearance: Present: no acute distress, other (mildly agitated) Results - Labs CBC & Chem 7: 10/08/18 17:00 10/11/18 05:00 Labs: Laboratory Last Values WBC 11.3 K/mm3 (4.5-11.0) H 10/08/18 17:00 RBC 3.21 M/mm3 (3.65-5.03) L 10/08/18 17:00 Hgb 7.9 gm/dl (10.1-14.3) L 10/08/18 17:00 Hct 25.7 % (30.3-42.9) L 10/08/18 17:00 MCV 80 fl (79-97) 10/08/18 17:00 MCH 25 pg (28-32) L 10/08/18 17:00 MCHC 31 % (30-34) 10/08/18 17:00 RDW 21.8 % (13.2-15.2) H 10/08/18 17:00 Plt Count 313 K/mm3 (140-440) 10/08/18 17:00 Lymph % (Auto) 8.5 % (13.4-35.0) L 10/08/18 17:00 [place] % (Auto) 7.7 % (0.0-7.3) H 10/08/18 17:00 Eos % (Auto) 0.5 % (0.0-4.3) 10/08/18 17:00 Baso % (Auto) 0.5 % (0.0-1.8) 10/08/18 17:00 Lymph # 1.0 K/mm3 (1.2-5.4) L 10/08/18 17:00 [place] # 0.9 K/mm3 (0.0-0.8) H 10/08/18 17:00 Eos # 0.1 K/mm3 (0.0-0.4) 10/08/18 17:00 Baso # 0.1 K/mm3 (0.0-0.1) 10/08/18 17:00 Seg Neutrophils % 82.8 % (40.0-70.0) H 10/08/18 17:00 Seg Neutrophils # 9.3 K/mm3 (1.8-7.7) H 10/08/18 17:00 PT 25.4 Sec. (12.2-14.9) H 05/03/19 05:12 INR 2.14 (0.87-1.13) H 10/07/18 05:12 POC ABG pH 7.350 (7.35-7.45) 10/10/18 05:16 POC ABG pCO2 39.1 (35-45) 10/10/18 05:16 POC ABG pO2 93 (80-105) 10/10/18 05:16 POC ABG HCO3 21.6 (22-26 mml/L) 10/10/18 05:16 POC ABG Total CO2 23 (23-27mmol/L) 10/10/18 05:16 POC ABG O2 Sat 97 10/10/18 05:16 POC ABG Base Excess -4 ((-2) - (+3)mmol/L) 10/10/18 05:16 FiO2 30 % 10/10/18 05:16 Sodium 146 mmol/L (137-145) H D 10/10/18 05:45 Potassium 3.8 mmol/L (3.6-5.0) 10/10/18 05:45 Chloride 111.2 mmol/L (98-107) H 10/10/18 05:45 Carbon Dioxide 22 mmol/L (22-30) 10/10/18 05:45 Anion Gap 17 mmol/L 10/10/18 05:45 BUN 21 mg/dL (7-17) H 10/10/18 05:45 Creatinine 1.8 mg/dL (0.7-1.2) H 10/10/18 05:45 Estimated GFR 36 ml/min 10/10/18 05:45 BUN/Creatinine Ratio 12 % 10/10/18 05:45 Glucose 44 mg/dL (65-100) L 10/10/18 05:45 POC Glucose 162 (70-105) H 10/10/18 20:47 Hemoglobin A1c 10.2 % (4-6) H 10/07/18 22:08 Lactic Acid 1.50 mmol/L (0.7-2.0) 10/08/18 17:09 Calcium 7.4 mg/dL (8.4-10.2) L 10/10/18 05:45 Phosphorus 7.40 mg/dL (2.5-4.5) H 10/07/18 22:08 Magnesium 1.90 mg/dL (1.7-2.3) 10/08/18 04:05 Total Bilirubin 0.20 mg/dL (0.1-1.2) 10/08/18 04:05 Direct Bilirubin < 0.2 mg/dL (0-0.2) 10/07/18 02:43 Indirect Bilirubin 0.5 mg/dL 10/07/18 02:43 AST 26 units/L (5-40) 10/08/18 04:05 ALT 22 units/L (7-56) 10/08/18 04:05 Alkaline Phosphatase 155 units/L (35-129) H 10/08/18 04:05 Ammonia 40.0 umol/L (25-60) 10/07/18 02:43 Troponin T < 0.010 ng/mL (0.00-0.029) 10/07/18 08:59 C-Reactive Protein 0.20 mg/dL (0.00-1.30) 10/07/18 14:55 NT-Pro-B Natriuret Pep 2865 pg/mL (0-450) H 10/09/18 03:20 Total Protein 5.2 g/dL (6.3-8.2) L D 10/08/18 04:05 Albumin 2.6 g/dL (3.9-5) L 10/08/18 04:05 Albumin/Globulin Ratio 1.0 % 10/08/18 04:05 Urine Color Straw (Yellow) 10/07/18 02:34 Urine Turbidity Clear (Clear) 10/07/18 02:34 Urine pH 7.0 (5.0-7.0) 10/07/18 02:34 Ur Specific [place] 1.006 (1.003-1.030) 10/07/18 02:34 Urine Protein 100 mg/dl mg/dL (Negative) 10/07/18 02:34 Urine Glucose (UA) Neg mg/dL (Negative) 10/07/18 02:34 Urine Ketones Neg mg/dL (Negative) 10/07/18 02:34 Urine Blood Sm (Negative) 10/07/18 02:34 Urine Nitrite Neg (Negative) 10/07/18 02:34 Urine Bilirubin Neg (Negative) 10/07/18 02:34 Urine Urobilinogen < 2.0 mg/dL (<2.0) 10/07/18 02:34 Ur Leukocyte Esterase Tr (Negative) 10/07/18 02:34 Urine WBC (Auto) 1.0 /HPF (0.0-6.0) 10/07/18 02:34 Urine RBC (Auto) 5.0 /HPF (0.0-6.0) 10/07/18 02:34 U Epithel Cells (Auto) 1.0 /HPF (0-13.0) 10/07/18 02:34 Hyaline Casts 3 /LPF 10/07/18 02:34 Urine Mucus Few /HPF 10/07/18 02:34 Urine Opiates Screen Presumptive negative 10/07/18 02:34 Urine Methadone Screen Presumptive negative 10/07/18 02:34 Ur Barbiturates Screen Presumptive negative 10/07/18 02:34 Ur Phencyclidine Scrn Presumptive negative 10/07/18 02:34 Ur Amphetamines Screen Presumptive negative 10/07/18 02:34 U Benzodiazepines Scrn Presumptive negative 10/07/18 02:34 Urine Cocaine Screen Presumptive negative 10/07/18 02:34 U Marijuana (THC) Screen Presumptive positive 10/07/18 02:34 Drugs of Abuse Note Disclamer 10/07/18 02:34 Active Medications - Current Medications Current Medications: Generic Name Dose Route Start Last Admin Trade Name Freq PRN Reason Stop Dose Admin Acetaminophen 650 mg 10/07/18 04:59 Tylenol PO Q4H PRN Pain MILD(1-3)/Fever >100.5/RODRIGUEZ Lipase/Protease/Amylase 1 each 10/08/18 10:00 Pancreazjose carlos Arredondo 10,500 Unit FEEDTUBE PRN PRN For Clogged Feeding Tube Dextrose 50 ml 10/07/18 20:42 10/10/18 05:46 D50w (25gm) Syringe IV 50 ml PRN PRN Administration Hypoglycemia Famotidine 20 mg 10/10/18 10:00 10/10/18 09:47 Pepcid PO 20 mg DAILY ULI Administration Fentanyl 50 mcg 10/07/18 09:07 10/10/18 04:37 Sublimaze IV 50 mcg Q10MIN PRN Administration ANALGESIA Heparin Sodium (Porcine) 5,000 unit 10/07/18 17:00 10/10/18 18:12 Heparin SUB-Q 5,000 unit Q8H ULI Administration Hydralazine HCl 10 mg 10/07/18 05:07 10/07/18 05:25 Apresoline IV 10 mg Q4H PRN Administration Blood Pressure Hydrophilic Ointment 1 applic 10/07/18 02:40 Vaseline Lip Therapy TP Q2HR PRN Dry Lips Fentanyl Citrate 2,000 mcg in 100 mls @ 3.402 mls/hr 10/07/18 10:00 10/10/18 18:46 Fentanyl Drip Premix IV 3 mcg/kg/hr TITR ULI 10.206 mls/hr Administration Protocol 1 MCG/KG/HR Piperacillin Sod/Tazobactam Sod 3.375 gm in 50 mls @ 100 mls/hr 10/07/18 16:00 10/10/18 17:58 Zosyn/Ns 3.375gm/50ml IV 10/11/18 15:59 Not Given Q6H [facility] Sodium Bicarbonate 75 meq/ 1,075 mls @ 60 mls/hr 10/10/18 11:30 Dextrose IV DIRECT [facility] Insulin Glargine 5 units 10/09/18 22:00 10/09/18 21:23 Lantus SUB-Q 5 units QHS [facility] Administration Insulin Human Lispro 0 unit 10/09/18 00:00 10/10/18 05:53 Humalog SUB-Q Not Given Q6HR [facility] Protocol Metoclopramide HCl 10 mg 10/10/18 14:00 10/10/18 18:08 Reglan IV 10 mg Q8HR [facility] Administration Midazolam HCl 2 mg 10/07/18 06:03 10/08/18 21:43 Versed IV 2 mg Q10MIN PRN Administration Sedation Multi-Ingred Cream/Lotion/Oil/Oint 1 applic 10/07/18 02:40 Artificial Tears Ophth Oint OU Q4HR PRN Dry Eye(s) Ondansetron HCl 4 mg 10/07/18 04:59 Zofran IV Q8H PRN Nausea And Vomiting Quetiapine Fumarate 100 mg 10/09/18 22:00 10/09/18 21:22 Seroquel PO 100 mg QHS [facility] Administration Quetiapine Fumarate 75 mg 10/10/18 13:00 10/10/18 18:08 Seroquel PO 75 mg QAM [facility] Administration Simple Syrup 15 ml 10/08/18 10:00 Simple Syrup FEEDTUBE PRN PRN Hypoglycemia Simple Syrup 30 ml 10/08/18 10:00 10/09/18 01:09 Simple Syrup FEEDTUBE 30 ml PRN PRN Administration Hypoglycemia Sodium Bicarbonate 325 mg 10/08/18 10:00 Sodium Bicarbonate FEEDTUBE PRN PRN For Clogged Feeding Tube Sodium Chloride 10 ml 10/07/18 10:00 10/10/18 18:14 Sodium Chloride Flush Syringe 10 Ml IV 10 ml BID ULI Administration Sodium Chloride 10 ml 10/07/18 04:59 Sodium Chloride Flush Syringe 10 Ml IV PRN PRN LINE FLUSH Nutrition/Malnutrition Assess - Dietary Evaluation Nutrition/Malnutrition Findings: Nutrition Notes Start: 10/07/18 12:17 Freq: Status: Active Protocol: Document 10/10/18 14:21 RM (Rec: 10/10/18 14:28 RM [id number]) Nutrition Notes Initial or Follow up Reassessment Current Diagnosis Coronary Artery Disease, Diabetes,Sepsis,Hypertension, Respiratory Failure Other Pertinent Diagnosis DKA, AMS Current Diet Glucerna 1.2 at 55 ml/hr Labs/Tests Na 146 Pertinent Medications Reviewed Height 5 ft 2 in Weight 68.039 kg [place] Body Weight (kg) 50.00 BMI 27.4 Subjective/Other Information Observed Glucerna 1.2 infusing at 45 ml/hr. Per rounds TF was stopped overnight and restarted at 45 ml/hr. MD plans to order reglan and rate will be increased to goal. Burn Absent Trauma Absent #1 Nutrition Diagnosis Inadequate oral intake Diagnosis Progress(for reassessment Continues documentation) Is patient on ventilator? Yes Is Patient Ambulatory and/or Out of Bed No REE-([facility]-confined to bed) 1514.256 Calculation Used for Recommendations [facility] Additional Notes PRO: 1.2-2 gkg (82-136 g/day) Fluid: 1 mL/kcal Nutrition Intervention Nutrition Support: Glucerna 1.2 at 55ml/hr. 150 mls water flush q4h until hyperntremia resolves. 100 mls water flush once hyernatremia resolves. Kcal 1,584 Protein (gm) 79 Carbohydrates (gm) 151 Fat (gm) 79 Fluid (mL) 1,063 Goal #1 TF tolerance Goal #2 TF to meet 80-100% energy and pro needs Follow-Up By: 10/12/18 Additional Comments Follow for TF at goal, Na lab
[2018-10-10] MEDS: LANTUS SUB-Q SCH (22:35)
[2018-10-11] MEDS: HEPARIN SUB-Q SCH ×2 (01:32→10:57)
--- NOTE | 2018-10-11 02:49 | XRay Report ---
PROCEDURE: XR CHEST 1V AP TECHNIQUE: Chest radiograph single view. HISTORY: follow up respiratory failure COMPARISONS: October 10, 2018 . FINDINGS: Heart: Heart is borderline enlarged.. Mediastinum/Vessels: Normal. Lungs/Pleural space: There are infiltrates at the right lung base. There is a small right pleural ef fusion. There is no pneumothorax.. Bony thorax: No acute osseous abnormality. Life support devices: The endotracheal tube is in the mid trachea. NG tube is in the stomach. There i s a right-sided PICC line. The tip is in the superior vena cava.. IMPRESSION: Heart is borderline enlarged.. There are infiltrates at the right lung base. There is a small right pleural effusion. There is no pneumothorax.. The endotracheal tube is in the mid trachea. NG tube is in the stomach. There is a right-sided PICC line. The tip is in the superior vena cava.. This document is electronically signed by Marcos Dutton MD., Oct 11 2018 02:46:44 AM ET
--- NOTE | 2018-10-11 05:56 | Consultation ---
HISTORY OF PRESENT ILLNESS: This is a 48-year-old black female, who presented to the Emergency Room at [facility] with a history of coronary artery disease, hypertension, diabetes, who is brought to the hospital unresponsive. She was given D50W. She began to have active seizures. She had diminished level of consciousness. She has not been taking seizure medicines prior to that. Subsequent to the seizure, she was given medications for seizures and altered mental status. CT scan of the head done at that time was negative. The patient had been on multivitamin preparation, insulin, metoprolol, pantoprazole, thiamine and warfarin. The patient had altered mental status on admission with a CT, which was negative. Since admission, she has remained on the ventilator, although saw no response. PHYSICAL EXAMINATION: VITAL SIGNS: Her current blood pressure is 153/106, pulse rate is 80, respirations 18 on the ventilator. The patient is currently intubated. NEUROLOGIC: She is alert. She opens her eyes and showed some side to side. She moves her hands appropriately. Her last blood sugar was elevated in the range of 114, but had previously also been low in the range of 49 when I saw the patient. Her chloride was 111. Sodium is 146, creatinine was 1.8. Examination further shows that she is still having active seizure to the present time. IMPRESSION: The patient is ventilatory dependent. She is postictal. She has had episodes of hyperglycemia, also episodes of renal insufficiency with creatinine of 1.8. She has metabolic encephalopathy. PLAN: EEG. CT scan of the head is negative. Agree with treatment with anticonvulsants. JOB# [id number] SHANICE/NTS
[2018-10-11 07:25] LABS: Calcium 7.7 mg/dL (8.4-10.2)
[2018-10-11] MEDS: HumaLOG SUB-Q SCH ×4 (07:59→19:49)
[2018-10-11] MEDS: ZOSYN/NS 3.375GM/50ML 3.375 GM/50 ML BAG IV SCH ×3 (08:01→10:57)
--- NOTE | 2018-10-11 08:52 | Progress Note ---
Assessment and Plan Impression * Acute kidney injury * Metabolic acidosis * Hypernatremia * Mechanical aortic valve * Sepsis * Seizure disorder * Transaminitis * Encephalopathy Recommendations * Patient's renal function seems to be stabilizing * He does have underlying chronic kidney disease. Baseline creatinine approximately 1.6. * Patient is currently nonoliguric * Hypernatremia is improving. Her acidosis had corrected * Discontinue bicarbonate drip for now * Chest x-ray showing right basal infiltrates and some pleural effusion. IV fluid being discontinued * Echocardiogram showing ejection fraction of 40% with dilated ventricles Subjective Date of service: 10/11/18 Principal diagnosis: Ac hypoxemic resp failure; Seizures (?hypoglycemic); Ac encephalopathy(T/M) Interval history: Patient currently in the ICU. He remains on the ventilator. On 30% FiO2. Bicarbonate drip infusing at 75 mL an hour Objective - Vital Signs Vital signs: Vital Signs - 12hr 10/10/18 10/10/18 10/10/18 21:00 21:17 21:31 Temperature Pulse Rate 96 H 94 H 95 H Respiratory 9 L 11 L 11 L Rate Blood Pressure 148/101 148/101 140/85 O2 Sat by Pulse 100 99 98 Oximetry 10/10/18 10/10/18 10/10/18 22:00 22:01 22:30 Temperature Pulse Rate 116 H 114 H 94 H Respiratory 16 12 Rate Blood Pressure 140/85 139/81 O2 Sat by Pulse 97 100 Oximetry 10/10/18 10/10/18 10/10/18 23:00 23:20 23:30 Temperature Pulse Rate 100 H 98 H 100 H Respiratory 11 L 9 L Rate Blood Pressure 137/78 137/78 135/86 O2 Sat by Pulse 100 100 100 Oximetry 10/11/18 10/11/18 10/11/18 00:00 00:30 01:00 Temperature Pulse Rate 98 H 97 H 99 H Respiratory 7 L 11 L 11 L Rate Blood Pressure 140/86 129/81 136/85 O2 Sat by Pulse 100 100 100 Oximetry 10/11/18 10/11/18 10/11/18 02:50 08:00 08:31 Temperature 98.6 F Pulse Rate 96 H 97 H Respiratory 13 Rate Blood Pressure 109/74 137/76 O2 Sat by Pulse 100 100 Oximetry - General Appearance General appearance: well-developed, well-nourished, appears stated age, intubated EENT: PERRL, mucous membranes moist Neck: no JVD, no thyromegaly, no carotid bruit, supple Respiratory: Present: Clear to Ascultation Cardiology: regular, normal heart rate, S1S2, no murmurs Gastrointestinal: normal, normoactive bowel sounds Integumentary: no rash, other (no edema) - Lab 10/08/18 17:00 10/11/18 05:00 Most recent lab results Calcium 7.7 mg/dL (8.4-10.2) L 10/11/18 05:00 Phosphorus 7.40 mg/dL (2.5-4.5) H 10/07/18 22:08 Magnesium 1.90 mg/dL (1.7-2.3) 10/08/18 04:05 Medications & Allergies - Medications Allergies/Adverse Reactions: Allergies No Known Allergies Allergy (Verified 12/03/16 23:01) Home Medications: Home Medications Medication Instructions Recorded Confirmed Last Taken Type Metoprolol [Lopressor TAB] 25 mg PO BID #60 tablet 12/29/16 08/11/18 Unknown Rx Famotidine [Pepcid] 20 mg PO DAILY #30 tablet 02/04/17 08/07/18 Unknown Rx Metoprolol [Lopressor TAB] 50 mg PO TID #90 tablet 02/04/17 08/07/18 Unknown Rx Coumadin 5 mg PO .ASDIR #30 08/13/18 Unknown Rx Ferrous Sulfate [Feosol 325 MG tab] 325 mg PO BID #60 tablet 08/13/18 Unknown Rx Folic Acid [Folvite] 1 mg PO QDAY #30 tablet 08/13/18 Unknown Rx Furosemide [Lasix TAB] 40 mg PO DAILY #30 tablet 08/13/18 08/07/18 Unknown Rx Insulin Glargine [Lantus VIAL] 5 units SUB-Q BIDDIAB 30 Days 08/13/18 Unknown Rx units Multivitamin Tab [Multiple Vitamin 1 each PO QDAY #30 tablet 08/13/18 Unknown Rx TAB (Theragran)] Pantoprazole [Protonix TAB] 40 mg PO DAILY #30 tablet 08/13/18 Unknown Rx Thiamine [Vitamin B-1] 100 mg PO QDAY #30 tablet 08/13/18 Unknown Rx Warfarin [Coumadin] 7.5 mg PO .ASDIR 30 Days tablet 08/13/18 Unknown Rx Active Medications: Generic Name Dose Route Start Last Admin Trade Name Freq PRN Reason Stop Dose Admin Acetaminophen 650 mg 10/07/18 04:59 Tylenol PO Q4H PRN Pain MILD(1-3)/Fever >100.5/RODRIGUEZ Lipase/Protease/Amylase 1 each 10/08/18 10:00 Pancreangelica Arredondo 10,500 Unit FEEDTUBE PRN PRN For Clogged Feeding Tube Dextrose 50 ml 10/07/18 20:42 10/10/18 05:46 D50w (25gm) Syringe IV 50 ml PRN PRN Administration Hypoglycemia Famotidine 20 mg 10/10/18 10:00 10/10/18 09:47 Pepcid PO 20 mg DAILY [facility] Administration Fentanyl 50 mcg 10/07/18 09:07 10/10/18 04:37 Sublimaze IV 50 mcg Q10MIN PRN Administration ANALGESIA Heparin Sodium (Porcine) 5,000 unit 10/07/18 17:00 10/11/18 01:32 Heparin SUB-Q 5,000 unit Q8H [facility] Administration Hydralazine HCl 10 mg 10/07/18 05:07 10/07/18 05:25 Apresoline IV 10 mg Q4H PRN Administration Blood Pressure Hydrophilic Ointment 1 applic 10/07/18 02:40 Vaseline Lip Therapy TP Q2HR PRN Dry Lips Fentanyl Citrate 2,000 mcg in 100 mls @ 3.402 mls/hr 10/07/18 10:00 10/10/18 18:46 Fentanyl Drip Premix IV 3 mcg/kg/hr TITR [facility] 10.206 mls/hr Administration Protocol 1 MCG/KG/HR Piperacillin Sod/Tazobactam Sod 3.375 gm in 50 mls @ 100 mls/hr 10/07/18 16:00 10/11/18 08:01 Zosyn/Ns 3.375gm/50ml IV 10/11/18 15:59 Not Given Q6H [facility] Sodium Bicarbonate 75 meq/ 1,075 mls @ 60 mls/hr 10/10/18 11:30 Dextrose IV DIRECT [facility] Insulin Human Lispro 0 unit 10/09/18 00:00 10/11/18 08:00 Humalog SUB-Q Not Given Q6HR [facility] Protocol Metoclopramide HCl 10 mg 10/10/18 14:00 10/10/18 22:35 Reglan IV 10 mg Q8HR [facility] Administration Midazolam HCl 2 mg 10/07/18 06:03 10/08/18 21:43 Versed IV 2 mg Q10MIN PRN Administration Sedation Multi-Ingred Cream/Lotion/Oil/Oint 1 applic 10/07/18 02:40 Artificial Tears Ophth Oint OU Q4HR PRN Dry Eye(s) Ondansetron HCl 4 mg 10/07/18 04:59 Zofran IV Q8H PRN Nausea And Vomiting Quetiapine Fumarate 100 mg 10/09/18 22:00 10/10/18 22:35 Seroquel PO 100 mg QHS [facility] Administration Quetiapine Fumarate 75 mg 10/10/18 13:00 10/10/18 18:08 Seroquel PO 75 mg QAM [facility] Administration Simple Syrup 15 ml 10/08/18 10:00 Simple Syrup FEEDTUBE PRN PRN Hypoglycemia Simple Syrup 30 ml 10/08/18 10:00 10/09/18 01:09 Simple Syrup FEEDTUBE 30 ml PRN PRN Administration Hypoglycemia Sodium Bicarbonate 325 mg 10/08/18 10:00 Sodium Bicarbonate FEEDTUBE PRN PRN For Clogged Feeding Tube Sodium Chloride 10 ml 10/07/18 10:00 10/10/18 18:14 Sodium Chloride Flush Syringe 10 Ml IV 10 ml BID [facility] Administration Sodium Chloride 10 ml 10/07/18 04:59 Sodium Chloride Flush Syringe 10 Ml IV PRN PRN LINE FLUSH
[2018-10-11] MEDS: fentaNYL DRIP Premix 2,000 MCG/100 ML BAG IV SCH (09:15)
[2018-10-11] MEDS: PEPCID PO SCH (10:57)
[2018-10-11] MEDS: SODIUM CHLORIDE FLUSH SYRINGE 10 ML IV SCH ×3 (11:07→21:20)
--- NOTE | 2018-10-11 11:38 | Progress Note ---
Assessment and Plan Acute hypoxemic respiratory failure, on mechanical ventilatory support. Symptomatic hypoglycemia. Seizures, possibly related to the hypoglycemia. Acute encephalopathy, toxic metabolic. Mild Hyponatremia Mechanical heart valve (mitral) History of cardiomyopathy. (EF 40%) Right pleural effusion. Pulmonary edema bilateral. History of diabetes. Hypertension. Coagulopathy that is probably related to her Coumadin use at home. - get stat CT brain re: lethargy / ? posturing to sternal rub - continue daily SAT's & SBT assessment as tolerated (holding extubation till less lethargic) - stopped am seroquel - consulted cardiology re: cardiomyopathy - consulted G.I. re: clearance for anticoagulation as H&H was dropping - stat repeat CBC - reduced reglan frequeny re: loose stools - hold tube feeds for tentative extubation - keep set rate at 12/min on MVS - stopped bicarb drip per nephrology - nephrology input appreciated - optimize cardiac function per cardiology team - de-escalate AB's based on clinical and microbiologic data - sedation target for RASS 0 to -1 (on hold now) - continue bronchodilators with pulmonary hygiene per RT - continue GI & VTE prophylaxis - continue to wean supplemental oxygen to keep O2 sats 88-90% - Lung protective strategies - Daily ABGs/CXR for now - VAP bundle addressed - Continue cardioprotective measures - Replete electrolytes as indicated - Monitor renal indices closely - Avoid nephrotoxic agents, adjust all medications for CrCL - Strict intake and output monitoring - Tube feedings as tolerated - Accuchecks with glycemic control. Target glucose of 140-180 mg/dL - Maintenance of sleep -wake cycle - Mobility as tolerated by hemodynamics - Influenza and pneumonia vaccination per protocol ..care plan discussed at length with RN/RT at the bedside ..discussed in ICU-IDT rounds PROGNOSIS: GUARDED CONDITION: CRITICAL CODE STATUS: FULL CODE The high probability of a clinically significant, sudden or life-threatening deterioration of the [respiratory, neurology, renal] system(s) required my full and direct attention, intervention and personal management. The aggregate critical care time was [40] minutes without overlap. Time includes spent on; [x] Data Review and interpretation [x] Patient assessment and monitoring of vital signs [x] Documentation [x] Medication orders and management Subjective Date of service: 10/11/18 Principal diagnosis: Ac hypoxemic resp failure; Seizures (?hypoglycemic); Ac encephalopathy(T/M) Interval history: Patient is seen today for: Acute hypoxemic respiratory failure, on mechanical ventilatory support; Symptomatic hypoglycemia; Seizures, possibly related to the hypoglycemia; Acute encephalopathy, toxic metabolic; Mild Hyponatremi; History of cardiomyopathy. (EF 40%) Seen and examined at bedside; 24hour events reviewed; nursing and respiratory ca re staff consulted; no adverse overnight events reported to me; remains on MVS; lethargic this morning; tolerating PSV but at Psupp of 16; + episode of emesis last night and now with loose stools; no fevers or chills Objective Vital Signs - 12hr 10/11/18 10/11/18 10/11/18 00:00 00:30 01:00 Temperature Pulse Rate 98 H 97 H 99 H Pulse Rate [ From Monitor] Respiratory 7 L 11 L 11 L Rate Blood Pressure 140/86 129/81 136/85 O2 Sat by Pulse 100 100 100 Oximetry 10/11/18 10/11/18 10/11/18 01:30 02:00 02:31 Temperature Pulse Rate 100 H 97 H 97 H Pulse Rate [ From Monitor] Respiratory 12 5 L 11 L Rate Blood Pressure 132/78 129/80 109/74 O2 Sat by Pulse 100 99 100 Oximetry 10/11/18 10/11/18 10/11/18 02:50 03:00 03:30 Temperature Pulse Rate 96 H 89 95 H Pulse Rate [ From Monitor] Respiratory 12 11 L Rate Blood Pressure 109/74 118/75 115/77 O2 Sat by Pulse 100 100 100 Oximetry 10/11/18 10/11/18 10/11/18 04:00 04:30 05:00 Temperature Pulse Rate 91 H 88 89 Pulse Rate [ From Monitor] Respiratory 12 11 L 11 L Rate Blood Pressure 115/74 119/79 119/79 O2 Sat by Pulse 100 100 100 Oximetry 10/11/18 10/11/18 10/11/18 05:30 06:00 06:30 Temperature Pulse Rate 96 H 97 H Pulse Rate [ From Monitor] Respiratory 11 L 12 Rate Blood Pressure 119/79 136/83 122/75 O2 Sat by Pulse 98 100 100 Oximetry 10/11/18 10/11/18 10/11/18 07:00 07:30 08:00 Temperature 98.6 F Pulse Rate 96 H 92 H 96 H Pulse Rate [ 95 H From Monitor] Respiratory 11 L 11 L 11 L Rate Blood Pressure 128/78 121/71 107/67 O2 Sat by Pulse 100 100 100 Oximetry 10/11/18 10/11/18 10/11/18 08:30 08:31 09:00 Temperature Pulse Rate 89 97 H 88 Pulse Rate [ From Monitor] Respiratory 12 13 12 Rate Blood Pressure 107/67 137/76 127/69 O2 Sat by Pulse 100 100 100 Oximetry 10/11/18 09:30 Temperature Pulse Rate 93 H Pulse Rate [ From Monitor] Respiratory 15 Rate Blood Pressure 119/73 O2 Sat by Pulse 100 Oximetry Constitutional: no acute distress, other (middle aged AAF, normocephalic and with mildly increased resp effort at rest) Eyes: non-icteric ENT: oropharynx moist, other (ETT 23 cm CATERINA) Neck: supple, no lymphadenopathy, no JVD Effort: mildly labored Ascultation: Bilateral: diminished breath sounds (bases), rales Percussion: Bilateral: not dull Cardiovascular: regular rate and rhythm, other (+ metalic valve click) Gastrointestinal: normoactive bowel sounds, soft, non-tender, non-distended, other (No HSM) Integumentary: normal Extremities: no cyanosis, no edema, pulses normal, no ischemia or petechiae Neurologic: non-focal exam (grossly), pupils equal and round, motor strength normal and Psychiatric: anxious CBC and BMP: 10/08/18 17:00 10/11/18 05:00 ABG, PT/INR, D-dimer: ABG POC ABG pH 7.440 (7.35-7.45) 10/11/18 11:16 POC ABG pCO2 36.6 (35-45) 10/11/18 11:16 POC ABG pO2 95 (80-105) 10/11/18 11:16 POC ABG HCO3 24.9 (22-26 mml/L) 10/11/18 11:16 POC ABG Total CO2 26 (23-27mmol/L) 10/11/18 11:16 POC ABG O2 Sat 98 10/11/18 11:16 PT/INR, D-dimer PT 25.4 Sec. (12.2-14.9) H 10/07/18 05:12 INR 2.14 (0.87-1.13) H 10/07/18 05:12 Abnormal lab findings: Abnormal Labs 10/07/18 10/07/18 10/07/18 02:20 02:43 02:43 WBC RBC Hgb Hct MCH 25 L RDW 21.5 H Lymph % (Auto) [place] % (Auto) Lymph # 0.9 L [place] # Seg Neutrophils % 78.4 H Seg Neutrophils # PT INR POC ABG pH POC ABG pCO2 POC ABG pO2 Sodium Potassium Chloride 108.0 H Carbon Dioxide 21 L BUN Creatinine 1.5 H Glucose 115 H POC Glucose 136 H Hemoglobin A1c Lactic Acid Calcium Phosphorus AST 51 H Alkaline Phosphatase 257 H NT-Pro-B Natriuret Pep Total Protein Albumin 10/07/18 10/07/18 10/07/18 02:43 04:32 05:12 WBC RBC Hgb Hct MCH RDW Lymph % (Auto) [place] % (Auto) Lymph # [place] # Seg Neutrophils % Seg Neutrophils # PT 25.4 H INR 2.14 H POC ABG pH POC ABG pCO2 33.6 L POC ABG pO2 69 L Sodium Potassium Chloride Carbon Dioxide BUN Creatinine Glucose POC Glucose Hemoglobin A1c Lactic Acid 2.40 H* Calcium Phosphorus AST Alkaline Phosphatase NT-Pro-B Natriuret Pep Total Protein Albumin 10/07/18 10/07/18 10/07/18 06:28 18:39 20:26 WBC RBC Hgb Hct MCH RDW Lymph % (Auto) [place] % (Auto) Lymph # [place] # Seg Neutrophils % Seg Neutrophils # PT INR POC ABG pH POC ABG pCO2 POC ABG pO2 Sodium Potassium Chloride Carbon Dioxide BUN Creatinine Glucose POC Glucose 164 H 440 H > 500 H Hemoglobin A1c Lactic Acid Calcium Phosphorus AST Alkaline Phosphatase NT-Pro-B Natriuret Pep Total Protein Albumin 10/07/18 10/07/18 10/07/18 20:28 21:53 22:08 WBC RBC Hgb Hct MCH RDW Lymph % (Auto) [place] % (Auto) Lymph # [place] # Seg Neutrophils % Seg Neutrophils # PT INR POC ABG pH POC ABG pCO2 POC ABG pO2 Sodium 136 L D Potassium 6.4 H* D Chloride Carbon Dioxide 10 L D BUN 30 H Creatinine 2.0 H Glucose 544 H* POC Glucose 483 H > 500 H Hemoglobin A1c Lactic Acid Calcium 7.0 L D Phosphorus AST Alkaline Phosphatase NT-Pro-B Natriuret Pep Total Protein Albumin 10/07/18 10/07/18 10/07/18 22:08 22:08 22:56 WBC RBC Hgb Hct MCH RDW Lymph % (Auto) [place] % (Auto) Lymph # [place] # Seg Neutrophils % Seg Neutrophils # PT INR POC ABG pH POC ABG pCO2 POC ABG pO2 Sodium Potassium Chloride Carbon Dioxide BUN Creatinine Glucose POC Glucose 462 H Hemoglobin A1c 10.2 H Lactic Acid Calcium Phosphorus 7.40 H AST Alkaline Phosphatase NT-Pro-B Natriuret Pep Total Protein Albumin 10/07/18 10/08/18 10/08/18 23:39 00:58 02:09 WBC RBC Hgb Hct MCH RDW Lymph % (Auto) [place] % (Auto) Lymph # [place] # Seg Neutrophils % Seg Neutrophils # PT INR POC ABG pH POC ABG pCO2 POC ABG pO2 Sodium Potassium Chloride Carbon Dioxide BUN Creatinine Glucose POC Glucose 396 H 375 H 285 H Hemoglobin A1c Lactic Acid Calcium Phosphorus AST Alkaline Phosphatase NT-Pro-B Natriuret Pep Total Protein Albumin 10/08/18 10/08/18 10/08/18 03:10 03:33 04:05 WBC RBC Hgb Hct MCH RDW Lymph % (Auto) [place] % (Auto) Lymph # [place] # Seg Neutrophils % Seg Neutrophils # PT INR POC ABG pH 7.243 L POC ABG pCO2 33.8 L POC ABG pO2 126 H Sodium Potassium 5.3 H Chloride 110.7 H Carbon Dioxide 14 L BUN 33 H Creatinine 2.2 H Glucose 193 H POC Glucose 251 H Hemoglobin A1c Lactic Acid Calcium 7.0 L Phosphorus AST Alkaline Phosphatase 155 H NT-Pro-B Natriuret Pep Total Protein 5.2 L D Albumin 2.6 L 10/08/18 10/08/18 10/08/18 04:05 04:05 04:09 WBC 11.8 H RBC 3.32 L Hgb 8.3 L Hct 27.5 L D MCH 25 L RDW 22.0 H Lymph % (Auto) 6.8 L [place] % (Auto) 12.0 H Lymph # 0.8 L [place] # 1.4 H Seg Neutrophils % 80.6 H Seg Neutrophils # 9.5 H PT INR POC ABG pH POC ABG pCO2 POC ABG pO2 Sodium Potassium Chloride Carbon Dioxide BUN Creatinine Glucose POC Glucose 175 H Hemoglobin A1c Lactic Acid 3.70 H* Calcium Phosphorus AST Alkaline Phosphatase NT-Pro-B Natriuret Pep Total Protein Albumin 10/08/18 10/08/18 10/08/18 05:07 06:05 07:14 WBC RBC Hgb Hct MCH RDW Lymph % (Auto) [place] % (Auto) Lymph # [place] # Seg Neutrophils % Seg Neutrophils # PT INR POC ABG pH POC ABG pCO2 POC ABG pO2 Sodium Potassium Chloride Carbon Dioxide BUN Creatinine Glucose POC Glucose 125 H 122 H 147 H Hemoglobin A1c Lactic Acid Calcium Phosphorus AST Alkaline Phosphatase NT-Pro-B Natriuret Pep Total Protein Albumin 10/08/18 10/08/18 10/08/18 07:22 08:09 08:47 WBC RBC Hgb Hct MCH RDW Lymph % (Auto) [place] % (Auto) Lymph # [place] # Seg Neutrophils % Seg Neutrophils # PT INR POC ABG pH POC ABG pCO2 POC ABG pO2 Sodium Potassium 5.2 H Chloride 112.4 H Carbon Dioxide 17 L BUN 32 H Creatinine 2.1 H Glucose 148 H POC Glucose 134 H 148 H Hemoglobin A1c Lactic Acid Calcium 6.6 L Phosphorus AST Alkaline Phosphatase NT-Pro-B Natriuret Pep Total Protein Albumin 10/08/18 10/08/18 10/08/18 10:21 13:29 14:21 WBC RBC Hgb Hct MCH RDW Lymph % (Auto) [place] % (Auto) Lymph # [place] # Seg Neutrophils % Seg Neutrophils # PT INR POC ABG pH POC ABG pCO2 POC ABG pO2 Sodium Potassium Chloride Carbon Dioxide BUN Creatinine Glucose POC Glucose 115 H 109 H 118 H Hemoglobin A1c Lactic Acid Calcium Phosphorus AST Alkaline Phosphatase NT-Pro-B Natriuret Pep Total Protein Albumin 10/08/18 10/08/18 10/08/18 15:27 17:00 17:00 WBC 11.3 H RBC 3.21 L Hgb 7.9 L Hct 25.7 L MCH 25 L RDW 21.8 H Lymph % (Auto) 8.5 L [place] % (Auto) 7.7 H Lymph # 1.0 L [place] # 0.9 H Seg Neutrophils % 82.8 H Seg Neutrophils # 9.3 H PT INR POC ABG pH POC ABG pCO2 POC ABG pO2 Sodium Potassium Chloride Carbon Dioxide BUN Creatinine Glucose POC Glucose 129 H Hemoglobin A1c Lactic Acid Calcium Phosphorus AST Alkaline Phosphatase NT-Pro-B Natriuret Pep 3097 H Total Protein Albumin 10/08/18 10/08/18 10/08/18 17:07 17:12 18:22 WBC RBC Hgb Hct MCH RDW Lymph % (Auto) [place] % (Auto) Lymph # [place] # Seg Neutrophils % Seg Neutrophils # PT INR POC ABG pH 7.337 L POC ABG pCO2 32.0 L POC ABG pO2 130 H Sodium Potassium Chloride 115.5 H Carbon Dioxide 17 L BUN 30 H Creatinine 1.9 H Glucose 103 H POC Glucose 119 H Hemoglobin A1c Lactic Acid Calcium 6.9 L Phosphorus AST Alkaline Phosphatase NT-Pro-B Natriuret Pep Total Protein Albumin 10/08/18 10/08/18 10/09/18 20:09 20:57 01:10 WBC RBC Hgb Hct MCH RDW Lymph % (Auto) [place] % (Auto) Lymph # [place] # Seg Neutrophils % Seg Neutrophils # PT INR POC ABG pH POC ABG pCO2 POC ABG pO2 Sodium Potassium Chloride 114.3 H 113.7 H Carbon Dioxide 15 L 14 L BUN 29 H 29 H Creatinine 2.1 H 2.0 H Glucose 132 H 39 L* POC Glucose 150 H Hemoglobin A1c Lactic Acid Calcium 6.7 L 6.9 L Phosphorus AST Alkaline Phosphatase NT-Pro-B Natriuret Pep Total Protein Albumin 10/09/18 10/09/18 10/09/18 01:10 01:43 03:20 WBC RBC Hgb Hct MCH RDW Lymph % (Auto) [place] % (Auto) Lymph # [place] # Seg Neutrophils % Seg Neutrophils # PT INR POC ABG pH POC ABG pCO2 POC ABG pO2 Sodium Potassium Chloride Carbon Dioxide BUN Creatinine Glucose POC Glucose < 40 L < 40 L Hemoglobin A1c Lactic Acid Calcium Phosphorus AST Alkaline Phosphatase NT-Pro-B Natriuret Pep 2865 H Total Protein Albumin 10/09/18 10/09/18 10/09/18 04:23 05:03 05:25 WBC RBC Hgb Hct MCH RDW Lymph % (Auto) [place] % (Auto) Lymph # [place] # Seg Neutrophils % Seg Neutrophils # PT INR POC ABG pH POC ABG pCO2 30.6 L 32.3 L POC ABG pO2 118 H Sodium Potassium Chloride Carbon Dioxide BUN Creatinine Glucose POC Glucose 148 H Hemoglobin A1c Lactic Acid Calcium Phosphorus AST Alkaline Phosphatase NT-Pro-B Natriuret Pep Total Protein Albumin 10/09/18 10/09/18 10/09/18 06:00 08:34 09:58 WBC RBC Hgb Hct MCH RDW Lymph % (Auto) [place] % (Auto) Lymph # [place] # Seg Neutrophils % Seg Neutrophils # PT INR POC ABG pH POC ABG pCO2 POC ABG pO2 Sodium Potassium Chloride Carbon Dioxide BUN Creatinine Glucose POC Glucose 173 H 196 H 183 H Hemoglobin A1c Lactic Acid Calcium Phosphorus AST Alkaline Phosphatase NT-Pro-B Natriuret Pep Total Protein Albumin 10/09/18 10/09/18 10/09/18 12:25 12:46 18:16 WBC RBC Hgb Hct MCH RDW Lymph % (Auto) [place] % (Auto) Lymph # [place] # Seg Neutrophils % Seg Neutrophils # PT INR POC ABG pH POC ABG pCO2 POC ABG pO2 Sodium Potassium Chloride 110.3 H Carbon Dioxide 16 L BUN 24 H Creatinine 1.8 H Glucose 207 H POC Glucose 208 H 177 H Hemoglobin A1c Lactic Acid Calcium 6.9 L Phosphorus AST Alkaline Phosphatase NT-Pro-B Natriuret Pep Total Protein Albumin 10/09/18 10/10/18 10/10/18 21:11 00:11 05:41 WBC RBC Hgb Hct MCH RDW Lymph % (Auto) [place] % (Auto) Lymph # [place] # Seg Neutrophils % Seg Neutrophils # PT INR POC ABG pH POC ABG pCO2 POC ABG pO2 Sodium Potassium Chloride Carbon Dioxide BUN Creatinine Glucose POC Glucose 124 H 156 H 42 L Hemoglobin A1c Lactic Acid Calcium Phosphorus AST Alkaline Phosphatase NT-Pro-B Natriuret Pep Total Protein Albumin 10/10/18 10/10/18 10/10/18 05:45 07:28 12:07 WBC RBC Hgb Hct MCH RDW Lymph % (Auto) [place] % (Auto) Lymph # [place] # Seg Neutrophils % Seg Neutrophils # PT INR POC ABG pH POC ABG pCO2 POC ABG pO2 Sodium 146 H D Potassium Chloride 111.2 H Carbon Dioxide BUN 21 H Creatinine 1.8 H Glucose 44 L POC Glucose 114 H 49 L Hemoglobin A1c Lactic Acid Calcium 7.4 L Phosphorus AST Alkaline Phosphatase NT-Pro-B Natriuret Pep Total Protein Albumin 10/10/18 10/10/18 10/10/18 12:37 18:02 20:47 WBC RBC Hgb Hct MCH RDW Lymph % (Auto) [place] % (Auto) Lymph # [place] # Seg Neutrophils % Seg Neutrophils # PT INR POC ABG pH POC ABG pCO2 POC ABG pO2 Sodium Potassium Chloride Carbon Dioxide BUN Creatinine Glucose POC Glucose 142 H 49 L 162 H Hemoglobin A1c Lactic Acid Calcium Phosphorus AST Alkaline Phosphatase NT-Pro-B Natriuret Pep Total Protein Albumin 05/11/2310/10/18 10/10/18 21:45 22:19 23:50 WBC RBC Hgb Hct MCH RDW Lymph % (Auto) [place] % (Auto) Lymph # [place] # Seg Neutrophils % Seg Neutrophils # PT INR POC ABG pH 7.334 L POC ABG pCO2 47.0 H POC ABG pO2 53 L 79 L Sodium Potassium Chloride Carbon Dioxide BUN Creatinine Glucose POC Glucose 185 H Hemoglobin A1c Lactic Acid Calcium Phosphorus AST Alkaline Phosphatase NT-Pro-B Natriuret Pep Total Protein Albumin 10/11/18 10/11/18 10/11/18 05:00 06:41 07:17 WBC RBC Hgb Hct MCH RDW Lymph % (Auto) [place] % (Auto) Lymph # [place] # Seg Neutrophils % Seg Neutrophils # PT INR POC ABG pH POC ABG pCO2 POC ABG pO2 Sodium Potassium Chloride Carbon Dioxide BUN Creatinine 1.7 H Glucose 43 L POC Glucose 48 L 129 H Hemoglobin A1c Lactic Acid Calcium 7.7 L Phosphorus AST Alkaline Phosphatase NT-Pro-B Natriuret Pep Total Protein Albumin Chest x-ray: image reviewed (mild interstitial edema; tubes and lines in good position) Allied health notes reviewed: nursing
[2018-10-11] MEDS ORDERED: VITAMIN K (ADULT ONLY) 10 MG in NACL 0.9% 50 ML IV SCH (13:00)
[2018-10-11] MEDS ORDERED: REGLAN IV PRN (13:00)
--- NOTE | 2018-10-11 13:06 | Consultation ---
History of Present Illness Consult date: 10/11/18 Requesting physician: REJI WALTON Consult reason: known to you History of present illness: The patient is a 48-year-old female with a past medical history significant for CAD s/p CABG x 2 and mitral valve replacement using 27mm [employer] Masters mechanical valve and placement of left atrial appendage clip using 45mm Atricure clip on 01/06/[address] Efra Reese at [place], HFrEF, cardiac arrest, diabetes, hypertension, HLP, CKD and noncompliance. She has been seen by our practice on prior admissions. She is intubated on evaluation and this HPI obtained per the chart. She was brought to the emergency room for altered mental status on 10/07. She was found to have hypoglycemia, she was also having convulsions at the time of admission. The patient was subsequently intubated and also diagnosed with PNA, sepsis, ASHELY on CKD, encephalopathy. Cardiology has been consulted to provide recommendations regarding systemic AC in setting of mechanical mitral valve. Of note, pt's INR on admission on 10/07 was 2.14. On evaluation, she remains intubated with eyes open, no purposeful response to commands, withdraws from pain with ? posturing to sternal rub. Per critical care team, pt was recently responding to commands appropriately. Head CT ordered and neurology is already following. Additionally, pt noted to have decrease in H/H since admission with most recent H/H 7.9/25.7. Of note, pt has h/o upper GI bleed and and coagulopathy r/t coumadin. During a hospitalization in 08/2018, she presented with INR >17 and c/o hematemesis and underwent EGD which showed gastritis with mild self-limited oozing of blood. Systemic AC was resumed following GI evaluation. Echo done 07/2018 showed EF 40%, mild to mod LVH, LA and RA dilated, mod TR and NH, mechanical valve in mitral position that appears to be functioning properly. Echo done 11/2016 showed EF 40-45%, abnormal diastolic function, trace MR, mild TR, RVSP 36mmHg. Past History Past Medical History: CAD, diabetes, hypertension Past Surgical History: CABG, Other (mechanical mitral valve) Social history: other (unable to obtain due to altered mental status) Family history: other (unable to obtain due to altered mental status) Medications and Allergies Allergies Allergy/AdvReac Type Severity Reaction Status Date / Time No Known Allergies Allergy Verified 12/03/16 23:01 Home Medications Medication Instructions Recorded Confirmed Last Taken Type Metoprolol [Lopressor TAB] 25 mg PO BID #60 tablet 12/29/16 08/11/18 Unknown Rx Famotidine [Pepcid] 20 mg PO DAILY #30 tablet 02/04/17 08/07/18 Unknown Rx Metoprolol [Lopressor TAB] 50 mg PO TID #90 tablet 02/04/17 08/07/18 Unknown Rx Coumadin 5 mg PO .ASDIR #30 08/13/18 Unknown Rx Ferrous Sulfate [Feosol 325 MG tab] 325 mg PO BID #60 tablet 08/13/18 Unknown Rx Folic Acid [Folvite] 1 mg PO QDAY #30 tablet 08/13/18 Unknown Rx Furosemide [Lasix TAB] 40 mg PO DAILY #30 tablet 08/13/18 08/07/18 Unknown Rx Insulin Glargine [Lantus VIAL] 5 units SUB-Q BIDDIAB 30 Days 08/13/18 Unknown Rx units Multivitamin Tab [Multiple Vitamin 1 each PO QDAY #30 tablet 08/13/18 Unknown Rx TAB (Theragran)] Pantoprazole [Protonix TAB] 40 mg PO DAILY #30 tablet 08/13/18 Unknown Rx Thiamine [Vitamin B-1] 100 mg PO QDAY #30 tablet 08/13/18 Unknown Rx Warfarin [Coumadin] 7.5 mg PO .ASDIR 30 Days tablet 08/13/18 Unknown Rx Active Meds: Active Medications Acetaminophen (Tylenol) 650 mg PO Q4H PRN PRN Reason: Pain MILD(1-3)/Fever >100.5/RODRIGUEZ Lipase/Protease/Amylase (Pancreaze Dr 10,500 Unit) 1 each FEEDTUBE PRN PRN PRN Reason: For Clogged Feeding Tube Dextrose (D50w (25gm) Syringe) 50 ml IV PRN PRN PRN Reason: Hypoglycemia Last Admin: 10/10/18 05:46 Dose: 50 ml Documented by: Famotidine (Pepcid) 20 mg PO DAILY ULI Last Admin: 10/11/18 10:57 Dose: 20 mg Documented by: Fentanyl (Sublimaze) 50 mcg IV Q10MIN PRN PRN Reason: ANALGESIA Last Admin: 10/10/18 04:37 Dose: 50 mcg Documented by: Heparin Sodium (Porcine) (Heparin) 5,000 unit SUB-Q Q8H [facility] Last Admin: 10/11/18 10:57 Dose: 5,000 unit Documented by: Hydralazine HCl (Apresoline) 10 mg IV Q4H PRN PRN Reason: Blood Pressure Last Admin: 10/07/18 05:25 Dose: 10 mg Documented by: Hydrophilic Ointment (Vaseline Lip Therapy) 1 applic TP Q2HR PRN PRN Reason: Dry Lips Fentanyl Citrate (Fentanyl Drip Premix) 2,000 mcg in 100 mls @ 3.402 mls/hr IV TITR [facility]; Protocol Last Titration: 10/11/18 09:15 Dose: Infused Documented by: Piperacillin Sod/Tazobactam Sod (Zosyn/Ns 3.375gm/50ml) 3.375 gm in 50 mls @ 100 mls/hr IV Q6H [facility] Stop: 10/11/18 15:59 Last Admin: 10/11/18 10:57 Dose: 100 mls/hr Documented by: Insulin Human Lispro (Humalog) 0 unit SUB-Q Q6HR [facility]; Protocol Last Admin: 10/11/18 08:00 Dose: Not Given Documented by: Metoclopramide HCl (Reglan) 10 mg IV Q6HR PRN PRN Reason: Nausea And Vomiting Metoclopramide HCl (Reglan) 5 mg PO BID [facility] Midazolam HCl (Versed) 2 mg IV Q10MIN PRN PRN Reason: Sedation Last Admin: 10/08/18 21:43 Dose: 2 mg Documented by: Multi-Ingred Cream/Lotion/Oil/Oint (Artificial Tears Ophth Oint) 1 applic OU Q4HR PRN PRN Reason: Dry Eye(s) Ondansetron HCl (Zofran) 4 mg IV Q8H PRN PRN Reason: N/V unrelieved by Reglan Quetiapine Fumarate (Seroquel) 100 mg PO QHS [facility] Last Admin: 10/10/18 22:35 Dose: 100 mg Documented by: Simple Syrup (Simple Syrup) 15 ml FEEDTUBE PRN PRN PRN Reason: Hypoglycemia Simple Syrup (Simple Syrup) 30 ml FEEDTUBE PRN PRN PRN Reason: Hypoglycemia Last Admin: 10/09/18 01:09 Dose: 30 ml Documented by: Sodium Bicarbonate (Sodium Bicarbonate) 325 mg FEEDTUBE PRN PRN PRN Reason: For Clogged Feeding Tube Sodium Chloride (Sodium Chloride Flush Syringe 10 Ml) 10 ml IV BID [facility] Last Admin: 10/11/18 11:08 Dose: Not Given Documented by: Sodium Chloride (Sodium Chloride Flush Syringe 10 Ml) 10 ml IV PRN PRN PRN Reason: LINE FLUSH Review of Systems ROS unobtainable: due to endotracheal tube, due to mental status Physical Examination Vital Signs Pulse Resp 112 H 18 10/07/18 01:52 10/07/18 01:52 General appearance: other (intubated, eyes open, no purposeful response to commands) Cardiac: Positive: Reg Rate and Rhythm, S1/S2, Other (valve click) Lungs: Positive: Decreased Breath Sounds, Ventilated Respirations Neuro: Positive: Other (intubated, no purposeful response to commands, withdraws from pain) Skin: Negative: Rash Extremities: Present: edema (generalized ) Results 10/08/18 17:00 10/11/18 05:00 Comprehensive Metabolic Panel 10/11/18 Range/Units 05:00 Sodium 142 (137-145) mmol/L Potassium 4.0 (3.6-5.0) mmol/L Chloride 105.4 (98-107) mmol/L Carbon Dioxide 27 (22-30) mmol/L BUN 16 (7-17) mg/dL Creatinine 1.7 H (0.7-1.2) mg/dL Glucose 43 L (65-100) mg/dL Calcium 7.7 L (8.4-10.2) mg/dL - Imaging and Cardiology Echo: report reviewed (07/2018: EF 40%, mild to mod LVH, LA and RA dilated, mod TR and NH, mechanical valve in mitral position that appears to be functioning properly. 11/2016 showed EF 40-45%, abnormal diastolic function, trace MR, mild TR, RVSP 36mmHg. ) EKG: report reviewed, image reviewed EKG interpretations - Telemetry EKG Rhythm: Sinus Rhythm - EKG Sinus rhythms and dysrhythmias: sinus rhythm Chamber hypertrophy or enlargement: left ventricular hypertro Assessment and Plan Pt appears critically ill with multiple co-morbidities. She was noted to have a change in mental status today with ? posturing to sternal rub per critical care team and is pending head CT, neurology is also following. Additionally, she is noted to have decrease in H/H, f/u H/H pending. Pt with h/o GI bleed in 08/2018. Cardiology has been consulted to provide recommendations regarding resumption of systemic AC in setting of mechanical mitral valve. Heparin gtt with initial bolus is certainly indicated if no contraindications. Will await head CT and GI evaluation prior to resuming systemic AC. Ultimately, coumadin should be resumed and continued lifelong if no longterm contraindications. Overall guarded prognosis. D/w Dr. Hernandez. The patient has been seen in conjunction with Dr. CICI Mora who agrees with the assessment and plan of care. - Patient Problems (1) Altered mental status Current Visit: Yes Status: Acute (2) Seizures Current Visit: Yes Status: Suspected (3) Hypoglycemia Current Visit: Yes Status: Acute (4) Acute respiratory failure Current Visit: Yes Status: Acute (5) Pneumonia Current Visit: Yes Status: Acute Qualifiers: Pneumonia type: due to unspecified organism Laterality: right Lung location: middle lobe of lung Qualified Code(s): J18.1 - Lobar pneumonia, unspecified organism (6) Sepsis Current Visit: Yes Status: Suspected Qualifiers: Sepsis type: sepsis due to unspecified organism Qualified Code(s): A41.9 - Sepsis, unspecified organism (7) CAD (coronary artery disease) Current Visit: Yes Status: Chronic (8) History of coronary artery bypass graft Current Visit: Yes Status: Chronic (9) H/O mitral valve replacement with mechanical valve Current Visit: Yes Status: Chronic (10) Heart failure with reduced ejection fraction Current Visit: Yes Status: Acute (11) Acute on chronic renal failure Current Visit: Yes Status: Acute (12) Anemia Current Visit: Yes Status: Chronic (13) History of GI bleed Current Visit: Yes Status: Chronic (14) Diabetes Current Visit: Yes Status: Chronic
--- NOTE | 2018-10-11 13:37 | Progress Note ---
Assessment and Plan Assessment and plan: 48 year old woman with history of coronary artery disease, status post cabbage, diabetes, hypertension who was brought to the emergency room for altered mental status. She was found to have hypoglycemia, she was also having convulsions at the time of admission. The patient was intubated, sp dextrose she was put on the ventilator she was found to have pneumonia and CHF flare and started on antibiotics. 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, treated as type 1, uncontrolled, a1c 10.2 Continue insulins, brittle DM with episodes of hypoglycemia and hyperglycemia, labile glc Mazin upon ckd stage 3, vasomotor nephropathy and likely ATN from sepsis Nephrology input appreciated, avoid nephrotoxins, improving hypernatremia resolved after she received hypotonic ivf Hyperkalemia Improving with insulin and diuretics htn urgency; optimize bp meds Marijuana abuse dvt ppx- lovenox Diagnosis status epilepticus hypoglycemia aspiration pneumonia type 2 diabetes coronary artery disease acute metabolic encephalopathy acute respiratory failure mechanical ventilator greater than 96 hours History Interval history: Patient was seen and evaluated this morning, patient was intubated and on mechanical ventilation. Hospitalist Physical - Physical exam Narrative exam: Patient is intubated and on mechanical ventilation The patient appeared well nourished and normally developed. Vital signs as documented. Head exam is unremarkable. No scleral icterus . Neck is without jugular venous distension, thyromegaly, or carotid bruits. Lungs are clear to auscultation. Cardiac exam reveals regular rate and Rhythm. Abdominal exam reveals normal bowel sounds Extremities are nonedematous. 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 - Constitutional Vitals: Temp Pulse Resp BP Pulse Ox 98.5 F 98 H 8 L 130/77 100 10/11/18 12:00 10/11/18 11:51 10/11/18 11:51 10/11/18 11:51 10/11/18 11:51 General appearance: Present: other (intubated, eyes open, no purposeful response to commands) Results - Labs CBC & Chem 7: 10/11/18 14:25 10/11/18 05:00 Labs: Laboratory Last Values WBC 11.3 K/mm3 (4.5-11.0) H 10/08/18 17:00 RBC 3.21 M/mm3 (3.65-5.03) L 10/08/18 17:00 Hgb 7.9 gm/dl (10.1-14.3) L 10/08/18 17:00 Hct 25.7 % (30.3-42.9) L 10/08/18 17:00 MCV 80 fl (79-97) 10/08/18 17:00 MCH 25 pg (28-32) L 10/08/18 17:00 MCHC 31 % (30-34) 10/08/18 17:00 RDW 21.8 % (13.2-15.2) H 10/08/18 17:00 Plt Count 313 K/mm3 (140-440) 10/08/18 17:00 Lymph % (Auto) 8.5 % (13.4-35.0) L 10/08/18 17:00 [place] % (Auto) 7.7 % (0.0-7.3) H 10/08/18 17:00 Eos % (Auto) 0.5 % (0.0-4.3) 10/08/18 17:00 Baso % (Auto) 0.5 % (0.0-1.8) 10/08/18 17:00 Lymph # 1.0 K/mm3 (1.2-5.4) L 10/08/18 17:00 [place] # 0.9 K/mm3 (0.0-0.8) H 10/08/18 17:00 Eos # 0.1 K/mm3 (0.0-0.4) 10/08/18 17:00 Baso # 0.1 K/mm3 (0.0-0.1) 10/08/18 17:00 Seg Neutrophils % 82.8 % (40.0-70.0) H 10/08/18 17:00 Seg Neutrophils # 9.3 K/mm3 (1.8-7.7) H 10/08/18 17:00 PT 25.4 Sec. (12.2-14.9) H 10/07/18 05:12 INR 2.14 (0.87-1.13) H 10/07/18 05:12 POC ABG pH 7.440 (7.35-7.45) 10/11/18 11:16 POC ABG pCO2 36.6 (35-45) 10/11/18 11:16 POC ABG pO2 95 (80-105) 10/11/18 11:16 POC ABG HCO3 24.9 (22-26 mml/L) 10/11/18 11:16 POC ABG Total CO2 26 (23-27mmol/L) 10/11/18 11:16 POC ABG O2 Sat 98 10/11/18 11:16 POC ABG Base Excess 1 ((-2) - (+3)mmol/L) 10/11/18 11:16 30 % 10/11/18 11:16 Sodium 142 mmol/L (137-145) 10/11/18 05:00 Potassium 4.0 mmol/L (3.6-5.0) 10/11/18 05:00 Chloride 105.4 mmol/L (98-107) 10/11/18 05:00 Carbon Dioxide 27 mmol/L (22-30) 10/11/18 05:00 14 mmol/L 10/11/18 05:00 BUN 16 mg/dL (7-17) 10/11/18 05:00 1.7 mg/dL (0.7-1.2) H 10/11/18 05:00 Estimated GFR 39 ml/min 10/11/18 05:00 9 % 10/11/18 05:00 Glucose 43 mg/dL (65-100) L 10/11/18 05:00 POC Glucose 138 (70-105) H 10/11/18 11:14 10.2 % (4-6) H 10/07/18 22:08 Lactic Acid 1.50 mmol/L (0.7-2.0) 10/08/18 17:09 Calcium 7.7 mg/dL (8.4-10.2) L 10/11/18 05:00 Phosphorus 7.40 mg/dL (2.5-4.5) H 10/07/18 22:08 Magnesium 1.90 mg/dL (1.7-2.3) 10/08/18 04:05 0.20 mg/dL (0.1-1.2) 10/08/18 04:05 < 0.2 mg/dL (0-0.2) 10/07/18 02:43 0.5 mg/dL 10/07/18 02:43 AST 26 units/L (5-40) 10/08/18 04:05 ALT 22 units/L (7-56) 10/08/18 04:05 155 units/L (35-129) H 10/08/18 04:05 40.0 umol/L (25-60) 10/07/18 02:43 < 0.010 ng/mL (0.00-0.029) 10/07/18 08:59 0.20 mg/dL (0.00-1.30) 10/07/18 14:55 NT-Pro-B Natriuret Pep 2865 pg/mL (0-450) H 10/09/18 03:20 5.2 g/dL (6.3-8.2) L D 10/08/18 04:05 2.6 g/dL (3.9-5) L 10/08/18 04:05 1.0 % 10/08/18 04:05 Straw (Yellow) 10/07/18 02:34 Clear (Clear) 10/07/18 02:34 7.0 (5.0-7.0) 10/07/18 02:34 Ur Specific Stewart 1.006 (1.003-1.030) 10/07/18 02:34 100 mg/dl mg/dL (Negative) 10/07/18 02:34 Neg mg/dL (Negative) 10/07/18 02:34 Neg mg/dL (Negative) 10/07/18 02:34 Sm (Negative) 10/07/18 02:34 Neg (Negative) 10/07/18 02:34 Neg (Negative) 10/07/18 02:34 < 2.0 mg/dL (<2.0) 10/07/18 02:34 Ur Leukocyte Esterase Tr (Negative) 10/07/18 02:34 1.0 /HPF (0.0-6.0) 10/07/18 02:34 5.0 /HPF (0.0-6.0) 10/07/18 02:34 U Epithel Cells (Auto) 1.0 /HPF (0-13.0) 10/07/18 02:34 Hyaline Casts 3 /LPF 10/07/18 02:34 Few /HPF 10/07/18 02:34 Presumptive negative 10/07/18 02:34 Presumptive negative 10/07/18 02:34 Ur Barbiturates Screen Presumptive negative 10/07/18 02:34 Ur Phencyclidine Scrn Presumptive negative 10/07/18 02:34 Ur Amphetamines Screen Presumptive negative 10/07/18 02:34 U Benzodiazepines Scrn Presumptive negative 10/07/18 02:34 Presumptive negative 10/07/18 02:34 U Marijuana (THC) Screen Presumptive positive 10/07/18 02:34 Disclamer 10/07/18 02:34 Active Medications - Current Medications Current Medications: Generic Name Dose Route Start Last Admin Trade Name Freq PRN Reason Stop Dose Admin Acetaminophen 650 mg 10/07/18 04:59 Tylenol PO Q4H PRN Pain MILD(1-3)/Fever >100.5/RODRIGUEZ Lipase/Protease/Amylase 1 each 10/08/18 10:[address] 10,500 Unit FEEDTUBE PRN PRN For Clogged Feeding Tube Dextrose 50 ml 10/07/18 20:42 10/10/18 05:46 D50w (25gm) Syringe IV 50 ml PRN PRN Administration Hypoglycemia Famotidine 20 mg 10/10/18 10:00 10/11/18 10:57 Pepcid PO 20 mg DAILY ULI Administration Fentanyl 50 mcg 10/07/18 09:07 10/10/18 04:37 Sublimaze IV 50 mcg Q10MIN PRN Administration ANALGESIA Heparin Sodium (Porcine) 5,000 unit 10/07/18 17:00 10/11/18 10:57 Heparin SUB-Q 5,000 unit Q8H ULI Administration Hydralazine HCl 10 mg 10/07/18 05:07 10/07/18 05:25 Apresoline IV 10 mg Q4H PRN Administration Blood Pressure Hydrophilic Ointment 1 applic 10/07/18 02:40 Vaseline Lip Therapy TP Q2HR PRN Dry Lips Fentanyl Citrate 2,000 mcg in 100 mls @ 3.402 mls/hr 10/07/18 10:00 10/11/18 09:15 Fentanyl Drip Premix IV Infused TITR [facility] Titration Protocol 1 MCG/KG/HR Piperacillin Sod/Tazobactam Sod 3.375 gm in 50 mls @ 100 mls/hr 10/07/18 16:00 10/11/18 10:57 Zosyn/Ns 3.375gm/50ml IV 10/11/18 15:59 100 mls/hr Q6H ULI Administration Insulin Human Lispro 0 unit 10/09/18 00:00 10/11/18 08:00 Humalog SUB-Q Not Given Q6HR [facility] Protocol Metoclopramide HCl 10 mg 10/11/18 13:00 Reglan IV Q6HR PRN Nausea And Vomiting Metoclopramide HCl 5 mg 10/11/18 22:00 Reglan PO BID U[facility] Midazolam HCl 2 mg 10/07/18 06:03 10/08/18 21:43 Versed IV 2 mg Q10MIN PRN Administration Sedation Multi-Ingred Cream/Lotion/Oil/Oint 1 applic 10/07/18 02:40 Artificial Tears Ophth Oint OU Q4HR PRN Dry Eye(s) Ondansetron HCl 4 mg 10/07/18 04:59 Zofran IV Q8H PRN N/V unrelieved by [place] Quetiapine Fumarate 100 mg 10/09/18 22:00 10/10/18 22:35 Seroquel PO 100 mg QHS [facility] Administration Simple Syrup 15 ml 10/08/18 10:00 Simple Syrup FEEDTUBE PRN PRN Hypoglycemia Simple Syrup 30 ml 10/08/18 10:00 10/09/18 01:09 Simple Syrup FEEDTUBE 30 ml PRN PRN Administration Hypoglycemia Sodium Bicarbonate 325 mg 10/08/18 10:00 Sodium Bicarbonate FEEDTUBE PRN PRN For Clogged Feeding Tube Sodium Chloride 10 ml 10/07/18 10:00 10/11/18 11:08 Sodium Chloride Flush Syringe 10 Ml IV Not Given BID ULI Sodium Chloride 10 ml 10/07/18 04:59 Sodium Chloride Flush Syringe 10 Ml IV PRN PRN LINE FLUSH Nutrition/Malnutrition Assess - Dietary Evaluation Nutrition/Malnutrition Findings: Nutrition Notes Start: 10/07/18 12:17 Freq: Status: Active Protocol: Document 10/10/18 14:21 RM (Rec: 10/10/18 14:28 RM [id number]) Nutrition Notes Initial or Follow up Reassessment Current Diagnosis Coronary Artery Disease, Diabetes,Sepsis,Hypertension, Respiratory Failure Other Pertinent Diagnosis DKA, AMS Current Diet Glucerna 1.2 at 55 ml/hr Labs/Tests Na 146 Pertinent Medications Reviewed Height 5 ft 2 in Weight 68.039 kg [place] Body Weight (kg) 50.00 BMI 27.4 Subjective/Other Information Observed Glucerna 1.2 infusing at 45 ml/hr. Per rounds TF was stopped overnight and restarted at 45 ml/hr. MD plans to order reglan and rate will be increased to goal. Burn Absent Trauma Absent #1 Nutrition Diagnosis Inadequate oral intake Diagnosis Progress(for reassessment Continues documentation) Is patient on ventilator? Yes Is Patient Ambulatory and/or Out of Bed No REE-([place]-confined to bed) 1514.256 Calculation Used for Recommendations [place] Additional Notes PRO: 1.2-2 gkg (82-136 g/day) Fluid: 1 mL/kcal Nutrition Intervention Nutrition Support: Glucerna 1.2 at 55ml/hr. 150 mls water flush q4h until hyperntremia resolves. 100 mls water flush once hyernatremia resolves. Kcal 1,584 Protein (gm) 79 Carbohydrates (gm) 151 Fat (gm) 79 Fluid (mL) 1,063 Goal #1 TF tolerance Goal #2 TF to meet 80-100% energy and pro needs Follow-Up By: 10/12/18 Additional Comments Follow for TF at goal, Na lab
[2018-10-11 13:52] LABS: INR 1.76 (0.87-1.13)
[2018-10-11 13:53] LABS: Partial Thromboplastin Time 50.5 Sec. (24.2-36.6)
--- NOTE | 2018-10-11 14:12 | Gastroenterology Consultation ---
History of Present Illness - Reason for Consult Consult date: 10/11/18 GI bleeding, clearance for anticoagulation Requesting physician: REJI WALTON - History of Present Illness Patient is a 48 y/o female with PMH of HTN, [place], cardiac arrest, CAD (s/p CABG x 2), mitral valve replacement, DM, HLP, CKD, chronic anemia and noncompliance who was brought to ED for evaluation of AMS after being found unresponsive by family. Upon admission, she was found to be hypoglycemia and was having convulsions/seizures. She was subsequently intubated and diagnosed with PNA, sepsis, ASHELY on CKD, and encephalopathy. Repeat CT of head pending for today r/o acute CVA / further change in mental status (no purposeful response to commands). Neurology, cardiology, nephrology, and pulmonary following. Patient was previously on systemic AC (coumadin) in setting of mechanical mitral valve with INR 2.14 on admission (10/07), however H/H dropped the following day (10/08) with anticoagulation currently on hold. GI has been consulted for evaluation of GI bleeding and clearance to resume systemic AC. Patient is previously known to our service from a consult 08/04/2018 for UGIB with undergoing an EGD on 08/05/2018 that showed gastritis with mild self-limited oozing of blood but no high risk bleeding lesions. No hx of PUD or liver disease. This afternoon, patient remains intubated in ICU. No active signs of bleeding such as hematemesis, melena, or hematochezia per nursing. No evidence of abd pain or N/V. Upon exam, OGT with non- bloody drainage and rectal exam revealed light brown stool. Past History Past Medical History: other (as per HPI) Past Surgical History: CABG, Other (mechanical mitral valve) Social history: other (unable to obtain due to mental status; +marijuana ) Family history: diabetes, hypertension Medications and Allergies Allergies Allergy/AdvReac Type Severity Reaction Status Date / Time No Known Allergies Allergy Verified 12/03/16 23:01 Home Medications Medication Instructions Recorded Confirmed Last Taken Type Metoprolol [Lopressor TAB] 25 mg PO BID #60 tablet 12/29/16 08/11/18 Unknown Rx Famotidine [Pepcid] 20 mg PO DAILY #30 tablet 02/04/17 08/07/18 Unknown Rx Metoprolol [Lopressor TAB] 50 mg PO TID #90 tablet 02/04/17 08/07/18 Unknown Rx Coumadin 5 mg PO .ASDIR #30 08/13/18 Unknown Rx Ferrous Sulfate [Feosol 325 MG tab] 325 mg PO BID #60 tablet 08/13/18 Unknown Rx Folic Acid [Folvite] 1 mg PO QDAY #30 tablet 08/13/18 Unknown Rx Furosemide [Lasix TAB] 40 mg PO DAILY #30 tablet 08/13/18 08/07/18 Unknown Rx Insulin Glargine [Lantus VIAL] 5 units SUB-Q BIDDIAB 30 Days 08/13/18 Unknown Rx units Multivitamin Tab [Multiple Vitamin 1 each PO QDAY #30 tablet 08/13/18 Unknown Rx TAB (Theragran)] Pantoprazole [Protonix TAB] 40 mg PO DAILY #30 tablet 08/13/18 Unknown Rx Thiamine [Vitamin B-1] 100 mg PO QDAY #30 tablet 08/13/18 Unknown Rx Warfarin [Coumadin] 7.5 mg PO .ASDIR 30 Days tablet 08/13/18 Unknown Rx Active Meds: Active Medications Acetaminophen (Tylenol) 650 mg PO Q4H PRN PRN Reason: Pain MILD(1-3)/Fever >100.5/RODRIGUEZ Lipase/Protease/Amylase ([place] Dr 10,500 Unit) 1 each FEEDTUBE PRN PRN PRN Reason: For Clogged Feeding Tube Dextrose (D50w (25gm) Syringe) 50 ml IV PRN PRN PRN Reason: Hypoglycemia Last Admin: 10/10/18 05:46 Dose: 50 ml Documented by: Famotidine (Pepcid) 20 mg PO DAILY ULI Last Admin: 10/11/18 10:57 Dose: 20 mg Documented by: Fentanyl (Sublimaze) 50 mcg IV Q10MIN PRN PRN Reason: ANALGESIA Last Admin: 10/10/18 04:37 Dose: 50 mcg Documented by: Hydralazine HCl (Apresoline) 10 mg IV Q4H PRN PRN Reason: Blood Pressure Last Admin: 10/07/18 05:25 Dose: 10 mg Documented by: Hydrophilic Ointment (Vaseline Lip Therapy) 1 applic TP Q2HR PRN PRN Reason: Dry Lips Fentanyl Citrate (Fentanyl Drip Premix) 2,000 mcg in 100 mls @ 3.402 mls/hr IV TITR [facility]; Protocol Last Titration: 10/11/18 09:15 Dose: Infused Documented by: Piperacillin Sod/Tazobactam Sod (Zosyn/Ns 3.375gm/50ml) 3.375 gm in 50 mls @ 100 mls/hr IV Q6H ULI Stop: 10/11/18 15:59 Last Admin: 10/11/18 10:57 Dose: 100 mls/hr Documented by: Heparin Sodium/Sodium Chloride (Heparin/ 0.45% Nacl-25,000 Unit/500 Ml) 25,000 unit in 500 mls @ 20 mls/hr IV TITR [facility]; Protocol Insulin Human Lispro (Humalog) 0 unit SUB-Q Q6HR [facility]; Protocol Last Admin: 10/11/18 08:00 Dose: Not Given Documented by: Metoclopramide HCl (Reglan) 10 mg IV Q6HR PRN PRN Reason: Nausea And Vomiting Metoclopramide HCl (Reglan) 5 mg PO BID [facility] Midazolam HCl (Versed) 2 mg IV Q10MIN PRN PRN Reason: Sedation Last Admin: 10/08/18 21:43 Dose: 2 mg Documented by: Multi-Ingred Cream/Lotion/Oil/Oint (Artificial Tears Ophth Oint) 1 applic OU Q4HR PRN PRN Reason: Dry Eye(s) Ondansetron HCl (Zofran) 4 mg IV Q8H PRN PRN Reason: N/V unrelieved by Reglan Quetiapine Fumarate (Seroquel) 100 mg PO QHS [facility] Last Admin: 10/10/18 22:35 Dose: 100 mg Documented by: Simple Syrup (Simple Syrup) 15 ml FEEDTUBE PRN PRN PRN Reason: Hypoglycemia Simple Syrup (Simple Syrup) 30 ml FEEDTUBE PRN PRN PRN Reason: Hypoglycemia Last Admin: 10/09/18 01:09 Dose: 30 ml Documented by: Sodium Bicarbonate (Sodium Bicarbonate) 325 mg FEEDTUBE PRN PRN PRN Reason: For Clogged Feeding Tube Sodium Chloride (Sodium Chloride Flush Syringe 10 Ml) 10 ml IV BID [facility] Last Admin: 10/11/18 11:08 Dose: Not Given Documented by: Sodium Chloride (Sodium Chloride Flush Syringe 10 Ml) 10 ml IV PRN PRN PRN Reason: LINE FLUSH medications reviewed/updated as required Review of Systems - Review of Systems ROS unobtainable: due to endotracheal tube, due to mental status Exam - Constitutional Vital Signs: Temp Pulse Resp BP Pulse Ox 98.5 F 98 H 8 L 130/77 100 10/11/18 12:00 10/11/18 11:51 10/11/18 11:51 10/11/18 11:51 10/11/18 11:51 General appearance: other (intubated in ICU) - EENT ENT: other (+ETT, +OGT) - Respiratory Respiratory: bilateral: diminished - Cardiovascular Rhythm: regular - Gastrointestinal General gastrointestinal: Present: soft, non-distended, normal bowel sounds Rectal Exam: other (light brown stool (recruitment intern present during exam-Katy HINDS)) - Labs CBC & Chem 7: 10/11/18 14:25 10/11/18 05:00 Lab Results: Laboratory Results - last 24 hr 10/10/18 10/10/18 10/10/18 12:37 18:02 20:47 PT INR APTT POC ABG pH POC ABG pCO2 POC ABG pO2 POC ABG HCO3 POC ABG Total CO2 POC ABG O2 Sat POC ABG Base Excess FiO2 Sodium Potassium Chloride Carbon Dioxide Anion Gap BUN Creatinine Estimated GFR BUN/Creatinine Ratio Glucose POC Glucose 142 H 49 L 162 H Calcium 10/10/18 10/10/18 10/10/18 21:45 22:19 23:50 PT INR APTT POC ABG pH 7.364 7.334 L POC ABG pCO2 43.7 47.0 H POC ABG pO2 53 L 79 L POC ABG HCO3 24.9 25.0 POC ABG Total CO2 26 26 POC ABG O2 Sat 86 95 POC ABG Base Excess 0 -1 FiO2 30 30 Sodium Potassium Chloride Carbon Dioxide Anion Gap BUN Creatinine Estimated GFR BUN/Creatinine Ratio Glucose POC Glucose 185 H Calcium 10/11/18 10/11/18 10/11/18 05:00 06:41 07:17 PT INR APTT POC ABG pH POC ABG pCO2 POC ABG pO2 POC ABG HCO3 POC ABG Total CO2 POC ABG O2 Sat POC ABG Base Excess FiO2 Sodium 142 Potassium 4.0 Chloride 105.4 Carbon Dioxide 27 Anion Gap 14 BUN 16 Creatinine 1.7 H Estimated GFR 39 BUN/Creatinine Ratio 9 Glucose 43 L POC Glucose 48 L 129 H Calcium 7.7 L 10/11/18 10/11/18 10/11/18 11:14 11:16 13:32 PT 21.7 H INR 1.76 H APTT 50.5 H POC ABG pH 7.440 POC ABG pCO2 36.6 POC ABG pO2 95 POC ABG HCO3 24.9 POC ABG Total CO2 26 POC ABG O2 Sat 98 POC ABG Base Excess 1 FiO2 30 Sodium Potassium Chloride Carbon Dioxide Anion Gap BUN Creatinine Estimated GFR BUN/Creatinine Ratio Glucose POC Glucose 138 H Calcium Assessment and Plan 1.drop in H/H/anemia (chronic) -H/H 8.2/26.4-trending up -continue to monitor H/H and transfuse as needed -no active sign of bleeding (rectal with light brown stool; OGT with non-bloody drainage) -last EGD 08/05/2018 showed gastritis with mild self-limited oozing of blood but no high risk bleeding lesions -etiology-anemia likely multifactorial -no plan for scope at this time unless overt signs of bleeding develop given no significant clinical evidence of GI bleeding (patient currently critically ill, intubated in ICU with multiple co-morbidities) -okay to resume anticoagulation per GI standpoint-monitor and hold for active signs of bleeding -start on PPI -continue supportive care -electrolyte management per primary team -will follow 2.PNA, severe sepsis with organ dysfunction 3.acute respiratory failure (on vent) 4.status epilepticus 5.acute on chronic systolic CHF 6.DM 7.ASHELY upon CKD 8.AMS 9.CAD (s/p CABG) 10.H/O mitral valve replacement with mechanical valve
[2018-10-11 14:41] LABS: Hematocrit 26.4 % (30.3-42.9); Hemoglobin 8.2 gm/dl (10.1-14.3); Mean Corpuscular HGB Conc 31 % (30-34); Mean Corpuscular Volume 80 fl (79-97); Platelet Count 286 K/mm3 (140-440); Red Blood Count 3.32 M/mm3 (3.65-5.03)
[2018-10-11 14:43] LABS: Red Cell Distribution Width 21.6 % (13.2-15.2)
[2018-10-11 14:55] LABS: INR 1.65 (0.87-1.13)
[2018-10-11 14:56] LABS: Partial Thromboplastin Time 54.9 Sec. (24.2-36.6)
[2018-10-11] MEDS: HEPARIN/ 0.45% NACL-25,000 UNIT/500 ML 25,000 UNIT/500 ML BAG IV SCH (14:58)
--- NOTE | 2018-10-11 15:01 | Cat Scan Report ---
CT scan of head without IV contrast: History: Acute CVA. Findings: Ventricles are normal in size and midline in location. No evidence of acute ischemia, hemorrhage or mass. No extra-axial fluid collection. Normal brainstem and cerebellum. Mucosal thickening of ethmoid and maxillary sinuses. Normal mastoids. Impression: No acute intracranial abnormality. Sinus disease .
--- NOTE | 2018-10-11 15:39 | Progress Note ---
Subjective Date of service: 10/11/18 Principal diagnosis: Ac hypoxemic resp failure; Seizures (?hypoglycemic); Ac encephalopathy(T/M) Interval history: carefully reviewed over the CT and agree with report this is very unremarkable CT of brain I would call it normal no stroke and no brain edema continue to monitor closely Objective - Vital Sign Vital Signs - 12hr 10/11/18 10/11/18 10/11/18 04:00 04:30 05:00 Temperature Pulse Rate 91 H 88 89 Pulse Rate [ From Monitor] Respiratory 12 11 L 11 L Rate Blood Pressure 115/74 119/79 119/79 O2 Sat by Pulse 100 100 100 Oximetry 10/11/18 10/11/18 10/11/18 05:30 06:00 06:30 Temperature Pulse Rate 96 H 97 H Pulse Rate [ From Monitor] Respiratory 11 L 12 Rate Blood Pressure 119/79 136/83 122/75 O2 Sat by Pulse 98 100 100 Oximetry 10/11/18 10/11/18 10/11/18 07:00 07:30 08:00 Temperature 98.6 F Pulse Rate 96 H 92 H 96 H Pulse Rate [ 95 H From Monitor] Respiratory 11 L 11 L 11 L Rate Blood Pressure 128/78 121/71 107/67 O2 Sat by Pulse 100 100 100 Oximetry 10/11/18 10/11/18 10/11/18 08:30 08:31 09:00 Temperature Pulse Rate 89 97 H 88 Pulse Rate [ From Monitor] Respiratory 12 13 12 Rate Blood Pressure 107/67 137/76 127/69 O2 Sat by Pulse 100 100 100 Oximetry 10/11/18 10/11/18 10/11/18 09:30 10:00 10:30 Temperature Pulse Rate 93 H 92 H 91 H Pulse Rate [ From Monitor] Respiratory 15 6 L 5 L Rate Blood Pressure 119/73 122/72 133/77 O2 Sat by Pulse 100 100 100 Oximetry 10/11/18 10/11/18 10/11/18 11:00 11:31 11:51 Temperature Pulse Rate 93 H 108 H 98 H Pulse Rate [ From Monitor] Respiratory 12 13 8 L Rate Blood Pressure 129/68 130/77 130/77 O2 Sat by Pulse 100 100 100 Oximetry 10/11/18 10/11/18 10/11/18 12:00 12:30 13:00 Temperature 98.5 F Pulse Rate 110 H 95 H 95 H Pulse Rate [ 92 H From Monitor] Respiratory 13 7 L 10 L Rate Blood Pressure 130/77 138/74 149/84 O2 Sat by Pulse 100 100 100 Oximetry 10/11/18 10/11/18 10/11/18 13:31 14:02 14:31 Temperature Pulse Rate 98 H 97 H 100 H Pulse Rate [ From Monitor] Respiratory 12 11 L 9 L Rate Blood Pressure 128/82 128/82 128/82 O2 Sat by Pulse 100 100 100 Oximetry - Laboratory Findings CBC and BMP: 10/11/18 14:25 10/11/18 05:00 Abnormal Lab Findings: Abnormal Labs 10/07/18 10/07/18 10/07/18 02:20 02:43 02:43 WBC RBC Hgb Hct MCH 25 L RDW 21.5 H Lymph % (Auto) [place] % (Auto) Lymph # 0.9 L [place] # Seg Neutrophils % 78.4 H Seg Neutrophils # PT INR APTT POC ABG pH POC ABG pCO2 POC ABG pO2 Sodium Potassium Chloride 108.0 H Carbon Dioxide 21 L BUN Creatinine 1.5 H Glucose 115 H POC Glucose 136 H Hemoglobin A1c Lactic Acid Calcium Phosphorus AST 51 H Alkaline Phosphatase 257 H NT-Pro-B Natriuret Pep Total Protein Albumin 10/07/18 10/07/18 10/07/18 02:43 04:32 05:12 WBC RBC Hgb Hct MCH RDW Lymph % (Auto) [place] % (Auto) Lymph # [place] # Seg Neutrophils % Seg Neutrophils # PT 25.4 H INR 2.14 H APTT POC ABG pH POC ABG pCO2 33.6 L POC ABG pO2 69 L Sodium Potassium Chloride Carbon Dioxide BUN Creatinine Glucose POC Glucose Hemoglobin A1c Lactic Acid 2.40 H* Calcium Phosphorus AST Alkaline Phosphatase NT-Pro-B Natriuret Pep Total Protein Albumin 10/07/18 10/07/18 10/07/18 06:28 18:39 20:26 WBC RBC Hgb Hct MCH RDW Lymph % (Auto) [place] % (Auto) Lymph # [place] # Seg Neutrophils % Seg Neutrophils # PT INR APTT POC ABG pH POC ABG pCO2 POC ABG pO2 Sodium Potassium Chloride Carbon Dioxide BUN Creatinine Glucose POC Glucose 164 H 440 H > 500 H Hemoglobin A1c Lactic Acid Calcium Phosphorus AST Alkaline Phosphatase NT-Pro-B Natriuret Pep Total Protein Albumin 10/07/18 10/07/18 10/07/18 20:28 21:53 22:08 WBC RBC Hgb Hct MCH RDW Lymph % (Auto) [place] % (Auto) Lymph # [place] # Seg Neutrophils % Seg Neutrophils # PT INR APTT POC ABG pH POC ABG pCO2 POC ABG pO2 Sodium 136 L D Potassium 6.4 H* D Chloride Carbon Dioxide 10 L D BUN 30 H Creatinine 2.0 H Glucose 544 H* POC Glucose 483 H > 500 H Hemoglobin A1c Lactic Acid Calcium 7.0 L D Phosphorus AST Alkaline Phosphatase NT-Pro-B Natriuret Pep Total Protein Albumin 10/07/18 10/07/18 10/07/18 22:08 22:08 22:56 WBC RBC Hgb Hct MCH RDW Lymph % (Auto) [place] % (Auto) Lymph # [place] # Seg Neutrophils % Seg Neutrophils # PT INR APTT POC ABG pH POC ABG pCO2 POC ABG pO2 Sodium Potassium Chloride Carbon Dioxide BUN Creatinine Glucose POC Glucose 462 H Hemoglobin A1c 10.2 H Lactic Acid Calcium Phosphorus 7.40 H AST Alkaline Phosphatase NT-Pro-B Natriuret Pep Total Protein Albumin 10/07/18 10/08/18 10/08/18 23:39 00:58 02:09 WBC RBC Hgb Hct MCH RDW Lymph % (Auto) [place] % (Auto) Lymph # [place] # Seg Neutrophils % Seg Neutrophils # PT INR APTT POC ABG pH POC ABG pCO2 POC ABG pO2 Sodium Potassium Chloride Carbon Dioxide BUN Creatinine Glucose POC Glucose 396 H 375 H 285 H Hemoglobin A1c Lactic Acid Calcium Phosphorus AST Alkaline Phosphatase NT-Pro-B Natriuret Pep Total Protein Albumin 10/08/18 10/08/18 10/08/18 03:10 03:33 04:05 WBC RBC Hgb Hct MCH RDW Lymph % (Auto) [place] % (Auto) Lymph # [place] # Seg Neutrophils % Seg Neutrophils # PT INR APTT POC ABG pH 7.243 L POC ABG pCO2 33.8 L POC ABG pO2 126 H Sodium Potassium 5.3 H Chloride 110.7 H Carbon Dioxide 14 L BUN 33 H Creatinine 2.2 H Glucose 193 H POC Glucose 251 H Hemoglobin A1c Lactic Acid Calcium 7.0 L Phosphorus AST Alkaline Phosphatase 155 H NT-Pro-B Natriuret Pep Total Protein 5.2 L D Albumin 2.6 L 10/08/18 10/08/18 10/08/18 04:05 04:05 04:09 WBC 11.8 H RBC 3.32 L Hgb 8.3 L Hct 27.5 L D MCH 25 L RDW 22.0 H Lymph % (Auto) 6.8 L [place] % (Auto) 12.0 H Lymph # 0.8 L [place] # 1.4 H Seg Neutrophils % 80.6 H Seg Neutrophils # 9.5 H PT INR APTT POC ABG pH POC ABG pCO2 POC ABG pO2 Sodium Potassium Chloride Carbon Dioxide BUN Creatinine Glucose POC Glucose 175 H Hemoglobin A1c Lactic Acid 3.70 H* Calcium Phosphorus AST Alkaline Phosphatase NT-Pro-B Natriuret Pep Total Protein Albumin 10/08/18 10/08/18 10/08/18 05:07 06:05 07:14 WBC RBC Hgb Hct MCH RDW Lymph % (Auto) [place] % (Auto) Lymph # [place] # Seg Neutrophils % Seg Neutrophils # PT INR APTT POC ABG pH POC ABG pCO2 POC ABG pO2 Sodium Potassium Chloride Carbon Dioxide BUN Creatinine Glucose POC Glucose 125 H 122 H 147 H Hemoglobin A1c Lactic Acid Calcium Phosphorus AST Alkaline Phosphatase NT-Pro-B Natriuret Pep Total Protein Albumin 10/08/18 10/08/18 10/08/18 07:22 08:09 08:47 WBC RBC Hgb Hct MCH RDW Lymph % (Auto) [place] % (Auto) Lymph # [place] # Seg Neutrophils % Seg Neutrophils # PT INR APTT POC ABG pH POC ABG pCO2 POC ABG pO2 Sodium Potassium 5.2 H Chloride 112.4 H Carbon Dioxide 17 L BUN 32 H Creatinine 2.1 H Glucose 148 H POC Glucose 134 H 148 H Hemoglobin A1c Lactic Acid Calcium 6.6 L Phosphorus AST Alkaline Phosphatase NT-Pro-B Natriuret Pep Total Protein Albumin 10/08/18 10/08/18 10/08/18 10:21 13:29 14:21 WBC RBC Hgb Hct MCH RDW Lymph % (Auto) [place] % (Auto) Lymph # [place] # Seg Neutrophils % Seg Neutrophils # PT INR APTT POC ABG pH POC ABG pCO2 POC ABG pO2 Sodium Potassium Chloride Carbon Dioxide BUN Creatinine Glucose POC Glucose 115 H 109 H 118 H Hemoglobin A1c Lactic Acid Calcium Phosphorus AST Alkaline Phosphatase NT-Pro-B Natriuret Pep Total Protein Albumin 10/08/18 10/08/18 10/08/18 15:27 17:00 17:00 WBC 11.3 H RBC 3.21 L Hgb 7.9 L Hct 25.7 L MCH 25 L RDW 21.8 H Lymph % (Auto) 8.5 L [place] % (Auto) 7.7 H Lymph # 1.0 L [place] # 0.9 H Seg Neutrophils % 82.8 H Seg Neutrophils # 9.3 H PT INR APTT POC ABG pH POC ABG pCO2 POC ABG pO2 Sodium Potassium Chloride Carbon Dioxide BUN Creatinine Glucose POC Glucose 129 H Hemoglobin A1c Lactic Acid Calcium Phosphorus AST Alkaline Phosphatase NT-Pro-B Natriuret Pep 3097 H Total Protein Albumin 10/08/18 10/08/18 10/08/18 17:07 17:12 18:22 WBC RBC Hgb Hct MCH RDW Lymph % (Auto) [place] % (Auto) Lymph # [place] # Seg Neutrophils % Seg Neutrophils # PT INR APTT POC ABG pH 7.337 L POC ABG pCO2 32.0 L POC ABG pO2 130 H Sodium Potassium Chloride 115.5 H Carbon Dioxide 17 L BUN 30 H Creatinine 1.9 H Glucose 103 H POC Glucose 119 H Hemoglobin A1c Lactic Acid Calcium 6.9 L Phosphorus AST Alkaline Phosphatase NT-Pro-B Natriuret Pep Total Protein Albumin 10/08/18 10/08/18 10/09/18 20:09 20:57 01:10 WBC RBC Hgb Hct MCH RDW Lymph % (Auto) [place] % (Auto) Lymph # [place] # Seg Neutrophils % Seg Neutrophils # PT INR APTT POC ABG pH POC ABG pCO2 POC ABG pO2 Sodium Potassium Chloride 114.3 H 113.7 H Carbon Dioxide 15 L 14 L BUN 29 H 29 H Creatinine 2.1 H 2.0 H Glucose 132 H 39 L* POC Glucose 150 H Hemoglobin A1c Lactic Acid Calcium 6.7 L 6.9 L Phosphorus AST Alkaline Phosphatase NT-Pro-B Natriuret Pep Total Protein Albumin 10/09/18 10/09/18 10/09/18 01:10 01:43 03:20 WBC RBC Hgb Hct MCH RDW Lymph % (Auto) [place] % (Auto) Lymph # [place] # Seg Neutrophils % Seg Neutrophils # PT INR APTT POC ABG pH POC ABG pCO2 POC ABG pO2 Sodium Potassium Chloride Carbon Dioxide BUN Creatinine Glucose POC Glucose < 40 L < 40 L Hemoglobin A1c Lactic Acid Calcium Phosphorus AST Alkaline Phosphatase NT-Pro-B Natriuret Pep 2865 H Total Protein Albumin 10/09/18 10/09/18 10/09/18 04:23 05:03 05:25 WBC RBC Hgb Hct MCH RDW Lymph % (Auto) [place] % (Auto) Lymph # [place] # Seg Neutrophils % Seg Neutrophils # PT INR APTT POC ABG pH POC ABG pCO2 30.6 L 32.3 L POC ABG pO2 118 H Sodium Potassium Chloride Carbon Dioxide BUN Creatinine Glucose POC Glucose 148 H Hemoglobin A1c Lactic Acid Calcium Phosphorus AST Alkaline Phosphatase NT-Pro-B Natriuret Pep Total Protein Albumin 10/09/18 10/09/18 10/09/18 06:00 08:34 09:58 WBC RBC Hgb Hct MCH RDW Lymph % (Auto) [place] % (Auto) Lymph # [place] # Seg Neutrophils % Seg Neutrophils # PT INR APTT POC ABG pH POC ABG pCO2 POC ABG pO2 Sodium Potassium Chloride Carbon Dioxide BUN Creatinine Glucose POC Glucose 173 H 196 H 183 H Hemoglobin A1c Lactic Acid Calcium Phosphorus AST Alkaline Phosphatase NT-Pro-B Natriuret Pep Total Protein Albumin 10/09/18 10/09/18 10/09/18 12:25 12:46 18:16 WBC RBC Hgb Hct MCH RDW Lymph % (Auto) [place] % (Auto) Lymph # [place] # Seg Neutrophils % Seg Neutrophils # PT INR APTT POC ABG pH POC ABG pCO2 POC ABG pO2 Sodium Potassium Chloride 110.3 H Carbon Dioxide 16 L BUN 24 H Creatinine 1.8 H Glucose 207 H POC Glucose 208 H 177 H Hemoglobin A1c Lactic Acid Calcium 6.9 L Phosphorus AST Alkaline Phosphatase NT-Pro-B Natriuret Pep Total Protein Albumin 10/09/18 10/10/18 10/10/18 21:11 00:11 05:41 WBC RBC Hgb Hct MCH RDW Lymph % (Auto) [place] % (Auto) Lymph # [place] # Seg Neutrophils % Seg Neutrophils # PT INR APTT POC ABG pH POC ABG pCO2 POC ABG pO2 Sodium Potassium Chloride Carbon Dioxide BUN Creatinine Glucose POC Glucose 124 H 156 H 42 L Hemoglobin A1c Lactic Acid Calcium Phosphorus AST Alkaline Phosphatase NT-Pro-B Natriuret Pep Total Protein Albumin 10/10/18 10/10/18 10/10/18 05:45 07:28 12:07 WBC RBC Hgb Hct MCH RDW Lymph % (Auto) [place] % (Auto) Lymph # [place] # Seg Neutrophils % Seg Neutrophils # PT INR APTT POC ABG pH POC ABG pCO2 POC ABG pO2 Sodium 146 H D Potassium Chloride 111.2 H Carbon Dioxide BUN 21 H Creatinine 1.8 H Glucose 44 L POC Glucose 114 H 49 L Hemoglobin A1c Lactic Acid Calcium 7.4 L Phosphorus AST Alkaline Phosphatase NT-Pro-B Natriuret Pep Total Protein Albumin 10/10/18 10/10/18 10/10/18 12:37 18:02 20:47 WBC RBC Hgb Hct MCH RDW Lymph % (Auto) [place] % (Auto) Lymph # [place] # Seg Neutrophils % Seg Neutrophils # PT INR APTT POC ABG pH POC ABG pCO2 POC ABG pO2 Sodium Potassium Chloride Carbon Dioxide BUN Creatinine Glucose POC Glucose 142 H 49 L 162 H Hemoglobin A1c Lactic Acid Calcium Phosphorus AST Alkaline Phosphatase NT-Pro-B Natriuret Pep Total Protein Albumin 10/10/18 10/10/18 10/10/18 21:45 22:19 23:50 WBC RBC Hgb Hct MCH RDW Lymph % (Auto) [place] % (Auto) Lymph # [place] # Seg Neutrophils % Seg Neutrophils # PT INR APTT POC ABG pH 7.334 L POC ABG pCO2 47.0 H POC ABG pO2 53 L 79 L Sodium Potassium Chloride Carbon Dioxide BUN Creatinine Glucose POC Glucose 185 H Hemoglobin A1c Lactic Acid Calcium Phosphorus AST Alkaline Phosphatase NT-Pro-B Natriuret Pep Total Protein Albumin 10/11/18 10/11/18 10/11/18 05:00 06:41 07:17 WBC RBC Hgb Hct MCH RDW Lymph % (Auto) [place] % (Auto) Lymph # [place] # Seg Neutrophils % Seg Neutrophils # PT INR APTT POC ABG pH POC ABG pCO2 POC ABG pO2 Sodium Potassium Chloride Carbon Dioxide BUN Creatinine 1.7 H Glucose 43 L POC Glucose 48 L 129 H Hemoglobin A1c Lactic Acid Calcium 7.7 L Phosphorus AST Alkaline Phosphatase NT-Pro-B Natriuret Pep Total Protein Albumin 10/11/18 10/11/18 10/11/18 11:14 13:32 14:25 WBC RBC 3.32 L Hgb 8.2 L Hct 26.4 L MCH 25 L RDW 21.6 H Lymph % (Auto) [place] % (Auto) Lymph # [place] # Seg Neutrophils % Seg Neutrophils # PT 21.7 H INR 1.76 H APTT 50.5 H POC ABG pH POC ABG pCO2 POC ABG pO2 Sodium Potassium Chloride Carbon Dioxide BUN Creatinine Glucose POC Glucose 138 H Hemoglobin A1c Lactic Acid Calcium Phosphorus AST Alkaline Phosphatase NT-Pro-B Natriuret Pep Total Protein Albumin 10/11/18 14:25 WBC RBC Hgb Hct MCH RDW Lymph % (Auto) [place] % (Auto) Lymph # [place] # Seg Neutrophils % Seg Neutrophils # PT 20.6 H INR 1.65 H APTT 54.9 H POC ABG pH POC ABG pCO2 POC ABG pO2 Sodium Potassium Chloride Carbon Dioxide BUN Creatinine Glucose POC Glucose Hemoglobin A1c Lactic Acid Calcium Phosphorus AST Alkaline Phosphatase NT-Pro-B Natriuret Pep Total Protein Albumin
--- NOTE | 2018-10-11 16:45 | Consultation ---
History of Present Illness - Reason for Consult Consult date: 10/11/18 pneumonia/sepsis Requesting physician: BOUCHRA SHERIFF - History of Present Illness 48 y/o female with history of CAD s/p CABG x 2, mitral valve replacement with mechanical valve on 01/06/2018 at [facility] on anticoagulation, CHF, cardiac arrest, diabetes, hypertension, HLP, CKD, previous GI bleed with INR>17 and noncompliance; admitted on 10/07/2018 due to altered mental status. Currently i ntubated unable to provide a history. In th ED, miracle 92.8, HR 112, BP 146/78, o2 sat 100%, WBC 6.6. Hg 10.9. Plat 404. Creat 1.5. Lactate 2.4. AST 51. CRP 0.2. BNP 3097. Blood culture 10/07/2018 no g petrath today. Sputum culture 10/07/2018 normal resp justa. CXR RLL infiltrate and right pleural effusion. CT head neg. Swas found to have hypoglycemia, she was also having convulsions. The patient was subsequently intubated. Echo done 07/2018 showed EF 40%, mild to mod LVH, LA and RA dilated, mod TR and TN, mechanical valve in mitral position that appears to be functioning properly. ROS: unable to obtain Past History Past Medical History: other (as per HPI) Past Surgical History: CABG, Other (mechanical mitral valve) Social history: other (unable to obtain due to mental status; +marijuana ) Family history: diabetes, hypertension Medications and Allergies Allergies Allergy/AdvReac Type Severity Reaction Status Date / Time No Known Allergies Allergy Verified 12/03/16 23:01 Home Medications Medication Instructions Recorded Confirmed Last Taken Type Metoprolol [Lopressor TAB] 25 mg PO BID #60 tablet 12/29/16 08/11/18 Unknown Rx Famotidine [Pepcid] 20 mg PO DAILY #30 tablet 02/04/17 08/07/18 Unknown Rx Metoprolol [Lopressor TAB] 50 mg PO TID #90 tablet 02/04/17 08/07/18 Unknown Rx Coumadin 5 mg PO .ASDIR #30 08/13/18 Unknown Rx Ferrous Sulfate [Feosol 325 MG tab] 325 mg PO BID #60 tablet 08/13/18 Unknown Rx Folic Acid [Folvite] 1 mg PO QDAY #30 tablet 08/13/18 Unknown Rx Furosemide [Lasix TAB] 40 mg PO DAILY #30 tablet 08/13/18 08/07/18 Unknown Rx Insulin Glargine [Lantus VIAL] 5 units SUB-Q BIDDIAB 30 Days 08/13/18 Unknown Rx units Multivitamin Tab [Multiple Vitamin 1 each PO QDAY #30 tablet 08/13/18 Unknown Rx TAB (Theragran)] Pantoprazole [Protonix TAB] 40 mg PO DAILY #30 tablet 08/13/18 Unknown Rx Thiamine [Vitamin B-1] 100 mg PO QDAY #30 tablet 08/13/18 Unknown Rx Warfarin [Coumadin] 7.5 mg PO .ASDIR 30 Days tablet 08/13/18 Unknown Rx Active Meds: Active Medications Acetaminophen (Tylenol) 650 mg PO Q4H PRN PRN Reason: Pain MILD(1-3)/Fever >100.5/RODRIGUEZ Lipase/Protease/Amylase (Pancreaze Dr 10,500 Unit) 1 each FEEDTUBE PRN PRN PRN Reason: For Clogged Feeding Tube Dextrose (D50w (25gm) Syringe) 50 ml IV PRN PRN PRN Reason: Hypoglycemia Last Admin: 10/10/18 05:46 Dose: 50 ml Documented by: Famotidine (Pepcid) 20 mg PO DAILY [facility] Last Admin: 10/11/18 10:57 Dose: 20 mg Documented by: Fentanyl (Sublimaze) 50 mcg IV Q10MIN PRN PRN Reason: ANALGESIA Last Admin: 10/10/18 04:37 Dose: 50 mcg Documented by: Hydralazine HCl (Apresoline) 10 mg IV Q4H PRN PRN Reason: Blood Pressure Last Admin: 10/07/18 05:25 Dose: 10 mg Documented by: Hydrophilic Ointment (Vaseline Lip Therapy) 1 applic TP Q2HR PRN PRN Reason: Dry Lips Fentanyl Citrate (Fentanyl Drip Premix) 2,000 mcg in 100 mls @ 3.402 mls/hr IV TITR [facility]; Protocol Last Admin: 10/11/18 09:15 Dose: 2 mcg/kg/hr, 6.804 mls/hr Documented by: Heparin Sodium/Sodium Chloride (Heparin/ 0.45% Nacl-25,000 Unit/500 Ml) 25,000 unit in 500 mls @ 20 mls/hr IV TITR [facility]; Protocol Last Admin: 10/11/18 14:58 Dose: 1,000 units/hr, 20 mls/hr Documented by: Insulin Human Lispro (Humalog) 0 unit SUB-Q Q6HR [facility]; Protocol Last Admin: 10/11/18 14:43 Dose: Not Given Documented by: Metoclopramide HCl (Reglan) 10 mg IV Q6HR PRN PRN Reason: Nausea And Vomiting Metoclopramide HCl (Reglan) 5 mg PO BID [facility] Midazolam HCl (Versed) 2 mg IV Q10MIN PRN PRN Reason: Sedation Last Admin: 10/08/18 21:43 Dose: 2 mg Documented by: Multi-Ingred Cream/Lotion/Oil/Oint (Artificial Tears Ophth Oint) 1 applic OU Q4 HR PRN PRN Reason: Dry Eye(s) Ondansetron HCl (Zofran) 4 mg IV Q8H PRN PRN Reason: N/V unrelieved by Reglan Pantoprazole Sodium (Protonix) 40 mg IV QDAY [facility] Quetiapine Fumarate (Seroquel) 100 mg PO QHS [facility] Last Admin: 10/10/18 22:35 Dose: 100 mg Documented by: Simple Syrup (Simple Syrup) 15 ml FEEDTUBE PRN PRN PRN Reason: Hypoglycemia Simple Syrup (Simple Syrup) 30 ml FEEDTUBE PRN PRN PRN Reason: Hypoglycemia Last Admin: 10/09/18 01:09 Dose: 30 ml Documented by: Sodium Bicarbonate (Sodium Bicarbonate) 325 mg FEEDTUBE PRN PRN PRN Reason: For Clogged Feeding Tube Sodium Chloride (Sodium Chloride Flush Syringe 10 Ml) 10 ml IV BID [facility] Last Admin: 10/11/18 11:08 Dose: Not Given Documented by: Sodium Chloride (Sodium Chloride Flush Syringe 10 Ml) 10 ml IV PRN PRN PRN Reason: LINE FLUSH Physical Examination - Physical Exam Narrative exam: General appearance:lethargic in NAD intubated Eyes: anicteric sclerae, moist conjunctivae; no lid-lag; PERRLA HENT: Atraumatic; oropharynx ETT Neck: Trachea midline; supple, no thyromegaly or lymphadenopathy Lungs: coarse breath sounds gwendolyn CV: RRR, no murmurs Abdomen: Soft, non-tender; no masses or hepatosplenomegaly Extremities: No peripheral edema or extremity lymphadenopathy Skin: Normal temperature, turgor and texture; no rash, ulcers or subcutaneous nodules Psych: lethargic. Neuro: lethargic - Constitutional Vitals: Vital Signs Temp Pulse Resp BP Pulse Ox 98.6 F 98 H 10 L 150/81 99 10/11/18 16:00 10/11/18 15:54 10/11/18 15:54 10/11/18 15:31 10/11/18 15:54 Temperature -Last 24 Hours Temperature 98.6 F Temperature 98.5 F Temperature 98.6 F Results - Labs CBC & Chem 7: 10/11/18 14:25 10/11/18 05:00 Labs: Abnormal lab results 10/10/18 10/10/18 10/10/18 Range/Units 12:37 18:02 20:47 RBC (3.65-5.03) M/mm3 Hgb (10.1-14.3) gm/dl Hct (30.3-42.9) % MCH (28-32) pg RDW (13.2-15.2) % PT (12.2-14.9) Sec. INR (0.87-1.13) APTT (24.2-36.6) Sec. POC ABG pH (7.35-7.45) POC ABG pCO2 (35-45) POC ABG pO2 (80-105) Creatinine (0.7-1.2) mg/dL Glucose (65-100) mg/dL POC Glucose 142 H 49 L 162 H (70-105) Calcium (8.4-10.2) mg/dL 10/10/18 10/10/18 10/10/18 Range/Units 21:45 22:19 23:50 RBC (3.65-5.03) M/mm3 Hgb (10.1-14.3) gm/dl Hct (30.3-42.9) % MCH (28-32) pg RDW (13.2-15.2) % PT (12.2-14.9) Sec. INR (0.87-1.13) APTT (24.2-36.6) Sec. POC ABG pH 7.334 L (7.35-7.45) POC ABG pCO2 47.0 H (35-45) POC ABG pO2 53 L 79 L (80-105) Creatinine (0.7-1.2) mg/dL Glucose (65-100) mg/dL POC Glucose 185 H (70-105) Calcium (8.4-10.2) mg/dL 10/11/18 10/11/18 10/11/18 Range/Units 05:00 06:41 07:17 RBC (3.65-5.03) M/mm3 Hgb (10.1-14.3) gm/dl Hct (30.3-42.9) % MCH (28-32) pg RDW (13.2-15.2) % PT (12.2-14.9) Sec. INR (0.87-1.13) APTT (24.2-36.6) Sec. POC ABG pH (7.35-7.45) POC ABG pCO2 (35-45) POC ABG pO2 (80-105) Creatinine 1.7 H (0.7-1.2) mg/dL Glucose 43 L (65-100) mg/dL POC Glucose 48 L 129 H (70-105) Calcium 7.7 L (8.4-10.2) mg/dL 10/11/18 10/11/18 10/11/18 Range/Units 11:14 13:32 14:25 RBC 3.32 L (3.65-5.03) M/mm3 Hgb 8.2 L (10.1-14.3) gm/dl Hct 26.4 L (30.3-42.9) % MCH 25 L (28-32) pg RDW 21.6 H (13.2-15.2) % PT 21.7 H (12.2-14.9) Sec. INR 1.76 H (0.87-1.13) APTT 50.5 H (24.2-36.6) Sec. POC ABG pH (7.35-7.45) POC ABG pCO2 (35-45) POC ABG pO2 (80-105) Creatinine (0.7-1.2) mg/dL Glucose (65-100) mg/dL POC Glucose 138 H (70-105) Calcium (8.4-10.2) mg/dL 10/11/18 Range/Units 14:25 RBC (3.65-5.03) M/mm3 Hgb (10.1-14.3) gm/dl Hct (30.3-42.9) % MCH (28-32) pg RDW (13.2-15.2) % PT 20.6 H (12.2-14.9) Sec. INR 1.65 H (0.87-1.13) APTT 54.9 H (24.2-36.6) Sec. POC ABG pH (7.35-7.45) POC ABG pCO2 (35-45) POC ABG pO2 (80-105) Creatinine (0.7-1.2) mg/dL Glucose (65-100) mg/dL POC Glucose (70-105) Calcium (8.4-10.2) mg/dL Assessment and Plan Cultures: Blood culture 10/07/2018 no growth today. Sputum culture 10/07/2018 normal resp justa. Assessment: 48 y/o female with history of CAD s/p CABG x 2, mitral valve replacement with me chanical valve on 01/06/2018 at [place] on anticoagulation, CHF, cardiac arrest, diabetes, hypertension, HLP, CKD, previous GI bleed with INR>17 and noncompliance; admitted on 10/07/2018 due to altered mental status/seizures found hypoglycemic: 1. SIRS v/s Sepsis: Present on admission, manifested by hypothermia, tachycardia, increased lactate. Etiology most likely pneumonia +/- seizures. CRP 0.2. Blood culture 10/07/2018 no growth today. 2) Seizures: from hypoglycemia 3) RLL pneumonia: likely aspiration. Sputum culture 10/07/2018 normal resp justa. CXR RLL infiltrate and right pleural effusion. She was on zosyn x 3 days. 4) ASHELY on CKD 5) Elevated LFTs from seizures 6) Acute encephalopathy from seizures Recommendations: - zosyn was stopped - start ceftriaxone and flagyl for aspiration pnumonitis D 3 of 7 Will follow. Steffanie Sun MD Infectious Diseases Client Services Assistant [facility] ([facility] M [phone] O [phone]
[2018-10-11] MEDS ORDERED: PROTONIX IV SCH (18:00)
[2018-10-11] MEDS: FLAGYL 500 MG/100 ML 500 MG/100 ML BAG IV SCH (18:09)
[2018-10-11] MEDS: ROCEPHIN/NS 2 GM/100 ML 2 GM/100 ML BAG IV SCH (18:09)
[2018-10-11] MEDS: REGLAN PO SCH (21:19)
[2018-10-11] MEDS: APRESOLINE IV PRN (21:19)
[2018-10-11] MEDS ORDERED: ATIVAN IV ONE (22:50)
[2018-10-12] MEDS: HumaLOG SUB-Q SCH ×4 (00:48→17:54)
[2018-10-12] MEDS: FLAGYL 500 MG/100 ML 500 MG/100 ML BAG IV SCH ×3 (02:00→17:43)
--- NOTE | 2018-10-12 03:21 | XRay Report ---
PROCEDURE: XR CHEST 1V AP TECHNIQUE: A portable upright view the chest was obtained. HISTORY: follow up respiratory failure COMPARISONS: 10/11/2018 FINDINGS: The heart is mildly enlarged previous valve replacement surgery. There is stable airspace disease in the right lung with a small right-sided effusion. There is additional stable patchy airspace disease in the left lower lobe. The ET tube and right-sided PICC line appear in good position. The NG tube is well-seated in the stomach. The bones and soft tissues otherwise are unchanged. IMPRESSION: Stable bilateral airspace disease with right-sided effusion. Satisfactory position of tubes and lines.. This document is electronically signed by Yamil Trejo MD., Oct 12 2018 03:19:44 AM ET
[2018-10-12] MEDS: VERSED IV PRN (04:21)
[2018-10-12] MEDS: REGLAN PO SCH (09:02)
[2018-10-12] MEDS: APRESOLINE IV PRN ×2 (09:02→13:06)
[2018-10-12] MEDS: SODIUM CHLORIDE FLUSH SYRINGE 10 ML IV SCH ×2 (09:04→22:00)
[2018-10-12] MEDS: SUBLIMAZE IV PRN (09:05)
[2018-10-12] MEDS ORDERED: PREVACID SOLUTAB FEEDTUBE SCH (10:00)
--- NOTE | 2018-10-12 10:12 | Progress Note ---
Assessment and Plan Acute hypoxemic respiratory failure, on mechanical ventilatory support. Symptomatic hypoglycemia. Seizures, possibly related to the hypoglycemia. Acute encephalopathy, toxic metabolic. Mild Hyponatremia Mechanical heart valve (mitral) History of cardiomyopathy. (EF 40%) Right pleural effusion. Pulmonary edema bilateral. History of diabetes. Hypertension. Coagulopathy that is probably related to her Coumadin use at home. - get ABGD on SBT; extubate if meets criteria otherwise - BIPAP qhs in short term if extubated - metoprolol started for tachycardia - get US chest +/- thoracenntesis - resume lantus insulin at 5U qd - discontinue Reglan re: loose stools - reduce set rate on MVS if not extubated - stopped am seroquel - cardiology evaluation ongoing (input appreciated) - G.I. cleared her for anticoagulation - hold tube feeds for tentative extubation - stopped bicarb drip per nephrology - nephrology input appreciated - optimize cardiac function per cardiology team - de-escalate AB's based on clinical and microbiologic data - sedation target for RASS 0 to -1 (on hold now) - continue bronchodilators with pulmonary hygiene per RT - continue GI & VTE prophylaxis - continue to wean supplemental oxygen to keep O2 sats 88-90% - Lung protective strategies - Daily ABGs/CXR for now - VAP bundle addressed - Continue cardioprotective measures - Replete electrolytes as indicated - Monitor renal indices closely - Avoid nephrotoxic agents, adjust all medications for CrCL - Strict intake and output monitoring - Tube feedings as tolerated - Accuchecks with glycemic control. Target glucose of 140-180 mg/dL - Maintenance of sleep -wake cycle - Mobility as tolerated by hemodynamics - Influenza and pneumonia vaccination per protocol ..care plan discussed at length with RN/RT at the bedside ..discussed in ICU-IDT rounds PROGNOSIS: GUARDED CONDITION: CRITICAL CODE STATUS: FULL CODE The high probability of a clinically significant, sudden or life-threatening deterioration of the [respiratory, neurology, renal] system(s) required my full and direct attention, intervention and personal management. The aggregate critical care time was [32] minutes without overlap. Time includes spent on; [x] Data Review and interpretation [x] Patient assessment and monitoring of vital signs [x] Documentation [x] Medication orders and management Subjective Date of service: 10/12/18 Principal diagnosis: Ac hypoxemic resp failure; Seizures (?hypoglycemic); Ac encephalopathy(T/M) Interval history: Patient is seen today for: Acute hypoxemic respiratory failure, on mechanical ventilatory support; Symptomatic hypoglycemia; Seizures, possibly related to the hypoglycemia; Acute encephalopathy, toxic metabolic; Mild Hyponatremi; History of cardiomyopathy. (EF 40%) Seen and examined at bedside; 24hour events reviewed; nursing and respiratory care staff consulted; no adverse overnight events reported to me; remains on MVS; somnolent but arousable; CT head was negative; tolerating SBT well so far; on IV heparin and no gross bleeding Objective Vital Signs - 12hr 10/11/18 10/11/18 10/11/18 22:31 23:00 23:12 Temperature Pulse Rate 124 H 114 H 115 H Pulse Rate [ From Monitor] Respiratory 21 20 Rate Blood Pressure 147/77 149/78 149/78 O2 Sat by Pulse 98 98 97 Oximetry 10/11/18 10/11/18 10/12/18 23:18 23:30 00:00 Temperature 99.1 F Pulse Rate 116 H 115 H 117 H Pulse Rate [ 114 H From Monitor] Respiratory 23 18 18 Rate Blood Pressure 156/84 159/97 162/91 O2 Sat by Pulse 97 98 98 Oximetry 10/12/18 10/12/18 10/12/18 00:31 01:00 01:30 Temperature Pulse Rate 112 H 111 H 111 H Pulse Rate [ From Monitor] Respiratory 18 20 15 Rate Blood Pressure 150/84 156/87 160/93 O2 Sat by Pulse 98 98 98 Oximetry 10/12/18 10/12/18 10/12/18 02:00 02:31 03:00 Temperature Pulse Rate 114 H 113 H Pulse Rate [ 114 H From Monitor] Respiratory 19 20 Rate Blood Pressure 147/92 147/92 161/91 O2 Sat by Pulse 99 98 99 Oximetry 10/12/18 10/12/18 10/12/18 03:13 03:31 04:00 Temperature 99.0 F Pulse Rate 113 H 113 H Pulse Rate [ 133 H From Monitor] Respiratory 20 Rate Blood Pressure 161/91 135/77 O2 Sat by Pulse 98 99 97 Oximetry 10/12/18 10/12/18 10/12/18 04:01 04:31 05:00 Temperature Pulse Rate 133 H 133 H 131 H Pulse Rate [ From Monitor] Respiratory 19 25 H 22 Rate Blood Pressure 169/88 172/86 170/99 O2 Sat by Pulse 97 99 97 Oximetry 10/12/18 10/12/18 10/12/18 05:31 06:01 06:31 Temperature Pulse Rate 135 H 134 H 133 H Pulse Rate [ From Monitor] Respiratory 26 H 16 16 Rate Blood Pressure 181/101 181/101 136/103 O2 Sat by Pulse 98 98 97 Oximetry 10/12/18 10/12/18 10/12/18 07:01 07:31 08:00 Temperature Pulse Rate 123 H 124 H Pulse Rate [ 122 H From Monitor] Respiratory 19 23 24 Rate Blood Pressure 139/97 161/92 O2 Sat by Pulse 97 100 98 Oximetry 10/12/18 10/12/18 10/12/18 08:01 08:43 09:02 Temperature Pulse Rate 122 H 124 H 122 H Pulse Rate [ From Monitor] Respiratory 24 25 H Rate Blood Pressure 176/101 175/95 O2 Sat by Pulse 98 96 Oximetry Constitutional: no acute distress, other (middle aged AAF, normocephalic and with mildly increased resp effort at rest) Eyes: non-icteric ENT: oropharynx moist, other (ETT 23 cm CATERINA) Neck: supple, no lymphadenopathy, no JVD Effort: mildly labored Ascultation: Bilateral: diminished breath sounds (bases), rales Percussion: Right: dull (base) Cardiovascular: regular rate and rhythm, other (+ metalic valve click) Gastrointestinal: normoactive bowel sounds, soft, non-tender, non-distended, other (No HSM) Integumentary: normal Extremities: no cyanosis, no edema, pulses normal, no ischemia or petechiae Neurologic: non-focal exam (grossly), pupils equal and round, motor strength normal and, other (somnolent) Psychiatric: other (flat affect) CBC and BMP: 10/11/18 14:25 10/12/18 04:25 ABG, PT/INR, D-dimer: ABG POC ABG pH 7.514 (7.35-7.45) H 10/12/18 03:56 POC ABG pCO2 31.2 (35-45) L 10/12/18 03:56 POC ABG pO2 103 (80-105) 10/12/18 03:56 POC ABG HCO3 25.1 (22-26 mml/L) 10/12/18 03:56 POC ABG Total CO2 26 (23-27mmol/L) 10/12/18 03:56 POC ABG O2 Sat 99 10/12/18 03:56 PT/INR, D-dimer PT 20.6 Sec. (12.2-14.9) H 10/11/18 14:25 INR 1.65 (0.87-1.13) H 10/11/18 14:25 Abnormal lab findings: Abnormal Labs 10/07/18 10/07/18 10/07/18 02:20 02:43 02:43 WBC RBC Hgb Hct MCH 25 L RDW 21.5 H Lymph % (Auto) [place] % (Auto) Lymph # 0.9 L [place] # Seg Neutrophils % 78.4 H Seg Neutrophils # PT INR APTT POC ABG pH POC ABG pCO2 POC ABG pO2 Sodium Potassium Chloride 108.0 H Carbon Dioxide 21 L BUN Creatinine 1.5 H Glucose 115 H POC Glucose 136 H Hemoglobin A1c Lactic Acid Calcium Phosphorus AST 51 H Alkaline Phosphatase 257 H NT-Pro-B Natriuret Pep Total Protein Albumin 10/07/18 10/07/18 10/07/18 02:43 04:32 05:12 WBC RBC Hgb Hct MCH RDW Lymph % (Auto) [place] % (Auto) Lymph # [place] # Seg Neutrophils % Seg Neutrophils # PT 25.4 H INR 2.14 H APTT POC ABG pH POC ABG pCO2 33.6 L POC ABG pO2 69 L Sodium Potassium Chloride Carbon Dioxide BUN Creatinine Glucose POC Glucose Hemoglobin A1c Lactic Acid 2.40 H* Calcium Phosphorus AST Alkaline Phosphatase NT-Pro-B Natriuret Pep Total Protein Albumin 10/07/18 10/07/18 10/07/18 06:28 18:39 20:26 WBC RBC Hgb Hct MCH RDW Lymph % (Auto) [place] % (Auto) Lymph # [place] # Seg Neutrophils % Seg Neutrophils # PT INR APTT POC ABG pH POC ABG pCO2 POC ABG pO2 Sodium Potassium Chloride Carbon Dioxide BUN Creatinine Glucose POC Glucose 164 H 440 H > 500 H Hemoglobin A1c Lactic Acid Calcium Phosphorus AST Alkaline Phosphatase NT-Pro-B Natriuret Pep Total Protein Albumin 10/07/18 10/07/18 10/07/18 20:28 21:53 22:08 WBC RBC Hgb Hct MCH RDW Lymph % (Auto) [place] % (Auto) Lymph # [place] # Seg Neutrophils % Seg Neutrophils # PT INR APTT POC ABG pH POC ABG pCO2 POC ABG pO2 Sodium 136 L D Potassium 6.4 H* D Chloride Carbon Dioxide 10 L D BUN 30 H Creatinine 2.0 H Glucose 544 H* POC Glucose 483 H > 500 H Hemoglobin A1c Lactic Acid Calcium 7.0 L D Phosphorus AST Alkaline Phosphatase NT-Pro-B Natriuret Pep Total Protein Albumin 10/07/18 10/07/18 10/07/18 22:08 22:08 22:56 WBC RBC Hgb Hct MCH RDW Lymph % (Auto) [place] % (Auto) Lymph # [place] # Seg Neutrophils % Seg Neutrophils # PT INR APTT POC ABG pH POC ABG pCO2 POC ABG pO2 Sodium Potassium Chloride Carbon Dioxide BUN Creatinine Glucose POC Glucose 462 H Hemoglobin A1c 10.2 H Lactic Acid Calcium Phosphorus 7.40 H AST Alkaline Phosphatase NT-Pro-B Natriuret Pep Total Protein Albumin 10/07/18 10/08/18 10/08/18 23:39 00:58 02:09 WBC RBC Hgb Hct MCH RDW Lymph % (Auto) [place] % (Auto) Lymph # [place] # Seg Neutrophils % Seg Neutrophils # PT INR APTT POC ABG pH POC ABG pCO2 POC ABG pO2 Sodium Potassium Chloride Carbon Dioxide BUN Creatinine Glucose POC Glucose 396 H 375 H 285 H Hemoglobin A1c Lactic Acid Calcium Phosphorus AST Alkaline Phosphatase NT-Pro-B Natriuret Pep Total Protein Albumin 10/08/18 10/08/18 10/08/18 03:10 03:33 04:05 WBC RBC Hgb Hct MCH RDW Lymph % (Auto) [place] % (Auto) Lymph # [place] # Seg Neutrophils % Seg Neutrophils # PT INR APTT POC ABG pH 7.243 L POC ABG pCO2 33.8 L POC ABG pO2 126 H Sodium Potassium 5.3 H Chloride 110.7 H Carbon Dioxide 14 L BUN 33 H Creatinine 2.2 H Glucose 193 H POC Glucose 251 H Hemoglobin A1c Lactic Acid Calcium 7.0 L Phosphorus AST Alkaline Phosphatase 155 H NT-Pro-B Natriuret Pep Total Protein 5.2 L D Albumin 2.6 L 10/08/18 10/08/18 10/08/18 04:05 04:05 04:09 WBC 11.8 H RBC 3.32 L Hgb 8.3 L Hct 27.5 L D MCH 25 L RDW 22.0 H Lymph % (Auto) 6.8 L [place] % (Auto) 12.0 H Lymph # 0.8 L [place] # 1.4 H Seg Neutrophils % 80.6 H Seg Neutrophils # 9.5 H PT INR APTT POC ABG pH POC ABG pCO2 POC ABG pO2 Sodium Potassium Chloride Carbon Dioxide BUN Creatinine Glucose POC Glucose 175 H Hemoglobin A1c Lactic Acid 3.70 H* Calcium Phosphorus AST Alkaline Phosphatase NT-Pro-B Natriuret Pep Total Protein Albumin 10/08/18 10/08/18 10/08/18 05:07 06:05 07:14 WBC RBC Hgb Hct MCH RDW Lymph % (Auto) [place] % (Auto) Lymph # [place] # Seg Neutrophils % Seg Neutrophils # PT INR APTT POC ABG pH POC ABG pCO2 POC ABG pO2 Sodium Potassium Chloride Carbon Dioxide BUN Creatinine Glucose POC Glucose 125 H 122 H 147 H Hemoglobin A1c Lactic Acid Calcium Phosphorus AST Alkaline Phosphatase NT-Pro-B Natriuret Pep Total Protein Albumin 10/08/18 10/08/18 10/08/18 07:22 08:09 08:47 WBC RBC Hgb Hct MCH RDW Lymph % (Auto) [place] % (Auto) Lymph # [place] # Seg Neutrophils % Seg Neutrophils # PT INR APTT POC ABG pH POC ABG pCO2 POC ABG pO2 Sodium Potassium 5.2 H Chloride 112.4 H Carbon Dioxide 17 L BUN 32 H Creatinine 2.1 H Glucose 148 H POC Glucose 134 H 148 H Hemoglobin A1c Lactic Acid Calcium 6.6 L Phosphorus AST Alkaline Phosphatase NT-Pro-B Natriuret Pep Total Protein Albumin 10/08/18 10/08/18 10/08/18 10:21 13:29 14:21 WBC RBC Hgb Hct MCH RDW Lymph % (Auto) [place] % (Auto) Lymph # [place] # Seg Neutrophils % Seg Neutrophils # PT INR APTT POC ABG pH POC ABG pCO2 POC ABG pO2 Sodium Potassium Chloride Carbon Dioxide BUN Creatinine Glucose POC Glucose 115 H 109 H 118 H Hemoglobin A1c Lactic Acid Calcium Phosphorus AST Alkaline Phosphatase NT-Pro-B Natriuret Pep Total Protein Albumin 10/08/18 10/08/18 10/08/18 15:27 17:00 17:00 WBC 11.3 H RBC 3.21 L Hgb 7.9 L Hct 25.7 L MCH 25 L RDW 21.8 H Lymph % (Auto) 8.5 L [place] % (Auto) 7.7 H Lymph # 1.0 L [place] # 0.9 H Seg Neutrophils % 82.8 H Seg Neutrophils # 9.3 H PT INR APTT POC ABG pH POC ABG pCO2 POC ABG pO2 Sodium Potassium Chloride Carbon Dioxide BUN Creatinine Glucose POC Glucose 129 H Hemoglobin A1c Lactic Acid Calcium Phosphorus AST Alkaline Phosphatase NT-Pro-B Natriuret Pep 3097 H Total Protein Albumin 10/08/18 10/08/18 10/08/18 17:07 17:12 18:22 WBC RBC Hgb Hct MCH RDW Lymph % (Auto) [place] % (Auto) Lymph # [place] # Seg Neutrophils % Seg Neutrophils # PT INR APTT POC ABG pH 7.337 L POC ABG pCO2 32.0 L POC ABG pO2 130 H Sodium Potassium Chloride 115.5 H Carbon Dioxide 17 L BUN 30 H Creatinine 1.9 H Glucose 103 H POC Glucose 119 H Hemoglobin A1c Lactic Acid Calcium 6.9 L Phosphorus AST Alkaline Phosphatase NT-Pro-B Natriuret Pep Total Protein Albumin 10/08/18 10/08/18 10/09/18 20:09 20:57 01:10 WBC RBC Hgb Hct MCH RDW Lymph % (Auto) [place] % (Auto) Lymph # [place] # Seg Neutrophils % Seg Neutrophils # PT INR APTT POC ABG pH POC ABG pCO2 POC ABG pO2 Sodium Potassium Chloride 114.3 H 113.7 H Carbon Dioxide 15 L 14 L BUN 29 H 29 H Creatinine 2.1 H 2.0 H Glucose 132 H 39 L* POC Glucose 150 H Hemoglobin A1c Lactic Acid Calcium 6.7 L 6.9 L Phosphorus AST Alkaline Phosphatase NT-Pro-B Natriuret Pep Total Protein Albumin 10/09/18 10/09/18 10/09/18 01:10 01:43 03:20 WBC RBC Hgb Hct MCH RDW Lymph % (Auto) [place] % (Auto) Lymph # [place] # Seg Neutrophils % Seg Neutrophils # PT INR APTT POC ABG pH POC ABG pCO2 POC ABG pO2 Sodium Potassium Chloride Carbon Dioxide BUN Creatinine Glucose POC Glucose < 40 L < 40 L Hemoglobin A1c Lactic Acid Calcium Phosphorus AST Alkaline Phosphatase NT-Pro-B Natriuret Pep 2865 H Total Protein Albumin 10/09/18 10/09/18 10/09/18 04:23 05:03 05:25 WBC RBC Hgb Hct MCH RDW Lymph % (Auto) [place] % (Auto) Lymph # [place] # Seg Neutrophils % Seg Neutrophils # PT INR APTT POC ABG pH POC ABG pCO2 30.6 L 32.3 L POC ABG pO2 118 H Sodium Potassium Chloride Carbon Dioxide BUN Creatinine Glucose POC Glucose 148 H Hemoglobin A1c Lactic Acid Calcium Phosphorus AST Alkaline Phosphatase NT-Pro-B Natriuret Pep Total Protein Albumin 10/09/18 10/09/18 10/09/18 06:00 08:34 09:58 WBC RBC Hgb Hct MCH RDW Lymph % (Auto) [place] % (Auto) Lymph # [place] # Seg Neutrophils % Seg Neutrophils # PT INR APTT POC ABG pH POC ABG pCO2 POC ABG pO2 Sodium Potassium Chloride Carbon Dioxide BUN Creatinine Glucose POC Glucose 173 H 196 H 183 H Hemoglobin A1c Lactic Acid Calcium Phosphorus AST Alkaline Phosphatase NT-Pro-B Natriuret Pep Total Protein Albumin 10/09/18 10/09/18 10/09/18 12:25 12:46 18:16 WBC RBC Hgb Hct MCH RDW Lymph % (Auto) [place] % (Auto) Lymph # [place] # Seg Neutrophils % Seg Neutrophils # PT INR APTT POC ABG pH POC ABG pCO2 POC ABG pO2 Sodium Potassium Chloride 110.3 H Carbon Dioxide 16 L BUN 24 H Creatinine 1.8 H Glucose 207 H POC Glucose 208 H 177 H Hemoglobin A1c Lactic Acid Calcium 6.9 L Phosphorus AST Alkaline Phosphatase NT-Pro-B Natriuret Pep Total Protein Albumin 10/09/18 10/10/18 10/10/18 21:11 00:11 05:41 WBC RBC Hgb Hct MCH RDW Lymph % (Auto) [place] % (Auto) Lymph # [place] # Seg Neutrophils % Seg Neutrophils # PT INR APTT POC ABG pH POC ABG pCO2 POC ABG pO2 Sodium Potassium Chloride Carbon Dioxide BUN Creatinine Glucose POC Glucose 124 H 156 H 42 L Hemoglobin A1c Lactic Acid Calcium Phosphorus AST Alkaline Phosphatase NT-Pro-B Natriuret Pep Total Protein Albumin 10/10/18 10/10/18 10/10/18 05:45 07:28 12:07 WBC RBC Hgb Hct MCH RDW Lymph % (Auto) [place] % (Auto) Lymph # [place] # Seg Neutrophils % Seg Neutrophils # PT INR APTT POC ABG pH POC ABG pCO2 POC ABG pO2 Sodium 146 H D Potassium Chloride 111.2 H Carbon Dioxide BUN 21 H Creatinine 1.8 H Glucose 44 L POC Glucose 114 H 49 L Hemoglobin A1c Lactic Acid Calcium 7.4 L Phosphorus AST Alkaline Phosphatase NT-Pro-B Natriuret Pep Total Protein Albumin 10/10/18 10/10/18 10/10/18 12:37 18:02 20:47 WBC RBC Hgb Hct MCH RDW Lymph % (Auto) [place] % (Auto) Lymph # [place] # Seg Neutrophils % Seg Neutrophils # PT INR APTT POC ABG pH POC ABG pCO2 POC ABG pO2 Sodium Potassium Chloride Carbon Dioxide BUN Creatinine Glucose POC Glucose 142 H 49 L 162 H Hemoglobin A1c Lactic Acid Calcium Phosphorus AST Alkaline Phosphatase NT-Pro-B Natriuret Pep Total Protein Albumin 10/10/18 10/10/18 10/10/18 21:45 22:19 23:50 WBC RBC Hgb Hct MCH RDW Lymph % (Auto) [place] % (Auto) Lymph # [place] # Seg Neutrophils % Seg Neutrophils # PT INR APTT POC ABG pH 7.334 L POC ABG pCO2 47.0 H POC ABG pO2 53 L 79 L Sodium Potassium Chloride Carbon Dioxide BUN Creatinine Glucose POC Glucose 185 H Hemoglobin A1c Lactic Acid Calcium Phosphorus AST Alkaline Phosphatase NT-Pro-B Natriuret Pep Total Protein Albumin 10/11/18 10/11/18 10/11/18 05:00 06:41 07:17 WBC RBC Hgb Hct MCH RDW Lymph % (Auto) [place] % (Auto) Lymph # [place] # Seg Neutrophils % Seg Neutrophils # PT INR APTT POC ABG pH POC ABG pCO2 POC ABG pO2 Sodium Potassium Chloride Carbon Dioxide BUN Creatinine 1.7 H Glucose 43 L POC Glucose 48 L 129 H Hemoglobin A1c Lactic Acid Calcium 7.7 L Phosphorus AST Alkaline Phosphatase NT-Pro-B Natriuret Pep Total Protein Albumin 10/11/18 10/11/18 10/11/18 11:14 13:32 14:25 WBC RBC 3.32 L Hgb 8.2 L Hct 26.4 L MCH 25 L RDW 21.6 H Lymph % (Auto) [place] % (Auto) Lymph # [place] # Seg Neutrophils % Seg Neutrophils # PT 21.7 H INR 1.76 H APTT 50.5 H POC ABG pH POC ABG pCO2 POC ABG pO2 Sodium Potassium Chloride Carbon Dioxide BUN Creatinine Glucose POC Glucose 138 H Hemoglobin A1c Lactic Acid Calcium Phosphorus AST Alkaline Phosphatase NT-Pro-B Natriuret Pep Total Protein Albumin 10/11/18 10/11/18 10/11/18 14:25 15:41 17:31 WBC RBC Hgb Hct MCH RDW Lymph % (Auto) [place] % (Auto) Lymph # [place] # Seg Neutrophils % Seg Neutrophils # PT 20.6 H INR 1.65 H APTT 54.9 H POC ABG pH POC ABG pCO2 POC ABG pO2 53 L Sodium Potassium Chloride Carbon Dioxide BUN Creatinine Glucose POC Glucose 133 H Hemoglobin A1c Lactic Acid Calcium Phosphorus AST Alkaline Phosphatase NT-Pro-B Natriuret Pep Total Protein Albumin 10/12/18 10/12/18 10/12/18 00:30 03:56 04:25 WBC RBC Hgb Hct MCH RDW Lymph % (Auto) [place] % (Auto) Lymph # [place] # Seg Neutrophils % Seg Neutrophils # PT INR APTT POC ABG pH 7.514 H POC ABG pCO2 31.2 L POC ABG pO2 Sodium Potassium Chloride Carbon Dioxide BUN Creatinine 1.6 H Glucose 287 H POC Glucose 353 H Hemoglobin A1c Lactic Acid Calcium 8.0 L Phosphorus AST Alkaline Phosphatase NT-Pro-B Natriuret Pep Total Protein Albumin 10/12/18 04:49 WBC RBC Hgb Hct MCH RDW Lymph % (Auto) [place] % (Auto) Lymph # [place] # Seg Neutrophils % Seg Neutrophils # PT INR APTT POC ABG pH POC ABG pCO2 POC ABG pO2 Sodium Potassium Chloride Carbon Dioxide BUN Creatinine Glucose POC Glucose 297 H Hemoglobin A1c Lactic Acid Calcium Phosphorus AST Alkaline Phosphatase NT-Pro-B Natriuret Pep Total Protein Albumin Chest x-ray: image reviewed (small right pleural effusion; ETT in good position) Allied health notes reviewed: nursing
--- NOTE | 2018-10-12 10:12 | Progress Note ---
Assessment and Plan GI recs noted - okay to resume anticoagulation per GI standpoint. Head CT with NAF. Cont heparin gtt. Initiate coumadin with tx INR 2.5-3.5. Optimize BPs and HR - resume home lopressor and titrate as tolerated. Initiate diuresis and cont as renal indices permit. F/u BMP. F/u echo. The patient has been seen in conjunction with Dr. Megan Mora who agrees with the assessment and plan of care. - Patient Problems (1) Altered mental status Current Visit: Yes Status: Acute (2) Seizures Current Visit: Yes Status: Suspected (3) Hypoglycemia Current Visit: Yes Status: Acute (4) Acute respiratory failure Current Visit: Yes Status: Acute (5) Pneumonia Current Visit: Yes Status: Acute Qualifiers: Pneumonia type: due to unspecified organism Laterality: right Lung location: middle lobe of lung Qualified Code(s): J18.1 - Lobar pneumonia, unspecified organism (6) Sepsis Current Visit: Yes Status: Suspected Qualifiers: Sepsis type: sepsis due to unspecified organism Qualified Code(s): A41.9 - Sepsis, unspecified organism (7) CAD (coronary artery disease) Current Visit: Yes Status: Chronic (8) History of coronary artery bypass graft Current Visit: Yes Status: Chronic (9) H/O mitral valve replacement with mechanical valve Current Visit: Yes Status: Chronic (10) Heart failure with reduced ejection fraction Current Visit: Yes Status: Acute (11) Acute on chronic renal failure Current Visit: Yes Status: Acute (12) Anemia Current Visit: Yes Status: Chronic (13) History of GI bleed Current Visit: Yes Status: Chronic (14) Diabetes Current Visit: Yes Status: Chronic Subjective Date of service: 10/12/18 Principal diagnosis: Ac hypoxemic resp failure; Seizures (?hypoglycemic); Ac encephalopathy(T/M) Interval history: pt remains intubated, eyes open. heparin gtt infusing. Objective Last Vital Signs Temp 99.0 F 10/12/18 04:00 Pulse 122 H 10/12/18 09:02 Resp 25 H 10/12/18 08:43 BP 175/95 10/12/18 09:02 Pulse Ox 96 10/12/18 08:43 - Physical Examination General: Other (intubated, eyes open) Neck: Positive: neck supple Cardiac: Positive: Reg Rate and Rhythm, S1/S2 Lungs: Positive: Decreased Breath Sounds, Ventilated Respirations Neuro: Positive: Other (intubated, eyes open) Abdomen: Negative: Tender Skin: Negative: Rash Extremities: Present: edema (generalized ) - Labs and Meds Coagulation 10/11/18 10/11/18 Range/Units 13:32 14:25 PT 21.7 H 20.6 H (12.2-14.9) Sec. INR 1.76 H 1.65 H (0.87-1.13) APTT 50.5 H 54.9 H (24.2-36.6) Sec. CBC 10/11/18 Range/Units 14:25 WBC 8.4 (4.5-11.0) K/mm3 RBC 3.32 L (3.65-5.03) M/mm3 Hgb 8.2 L (10.1-14.3) gm/dl Hct 26.4 L (30.3-42.9) % Plt Count 286 (140-440) K/mm3 Comprehensive Metabolic Panel 10/12/18 Range/Units 04:25 Sodium 139 (137-145) mmol/L Potassium 4.3 (3.6-5.0) mmol/L Chloride 104.6 (98-107) mmol/L Carbon Dioxide 26 (22-30) mmol/L BUN 16 (7-17) mg/dL Creatinine 1.6 H (0.7-1.2) mg/dL Glucose 287 H (65-100) mg/dL Calcium 8.0 L (8.4-10.2) mg/dL - Imaging and Cardiology EKG: report reviewed, image reviewed Echo: report reviewed (07/2018: EF 40%, mild to mod LVH, LA and RA dilated, mod TR and [place], mechanical valve in mitral position that appears to be functioning properly. 11/2016 showed EF 40-45%, abnormal diastolic function, trace MR, mild TR, RVSP 36mmHg. ) - EKG Sinus rhythms and dysrhythmias: sinus rhythm Chamber hypertrophy or enlargement: left ventricular hypertro - Allied health notes Allied health notes reviewed: nursing
[2018-10-12] MEDS ORDERED: LOPRESSOR PO SCH (11:00)
--- NOTE | 2018-10-12 11:21 | Progress Note ---
Assessment and Plan Impression * Acute kidney injury * Metabolic acidosis * Hypernatremia * Mechanical aortic valve * Sepsis * Seizure disorder * Transaminitis * Encephalopathy Recommendations * Patient's renal function seems to be stabilizing * He does have underlying chronic kidney disease. Baseline creatinine approximately 1.6. * Patient is currently nonoliguric * Hypernatremia is has been corrected . Her acidosis has been corrected as well . * Bicarbonate drip has been discontinued * Chest x-ray showing right basal infiltrates and some pleural effusion. IV flu id has been discontinued * Echocardiogram showing ejection fraction of 40% with dilated ventricles Subjective Date of service: 10/12/18 Principal diagnosis: Ac hypoxemic resp failure; Seizures (?hypoglycemic); Ac encephalopathy(T/M) Interval history: Patient currently in the ICU. He remains on the ventilator. On 30% FiO2. Currently off IV fluid. On heparin drip Objective - Vital Signs Vital signs: Vital Signs - 12hr 10/11/18 10/12/18 10/12/18 23:30 00:00 00:31 Temperature 99.1 F Pulse Rate 115 H 117 H 112 H Pulse Rate [ 114 H From Monitor] Respiratory 18 18 18 Rate Blood Pressure 159/97 162/91 150/84 O2 Sat by Pulse 98 98 98 Oximetry 10/12/18 10/12/18 10/12/18 01:00 01:30 02:00 Temperature Pulse Rate 111 H 111 H 114 H Pulse Rate [ 114 H From Monitor] Respiratory 20 15 19 Rate Blood Pressure 156/87 160/93 147/92 O2 Sat by Pulse 98 98 99 Oximetry 10/12/18 10/12/18 10/12/18 02:31 03:00 03:13 Temperature Pulse Rate 113 H 113 H Pulse Rate [ From Monitor] Respiratory 20 Rate Blood Pressure 147/92 161/91 161/91 O2 Sat by Pulse 98 99 98 Oximetry 10/12/18 10/12/18 10/12/18 03:31 04:00 04:01 Temperature 99.0 F Pulse Rate 113 H 133 H Pulse Rate [ 133 H From Monitor] Respiratory 20 19 Rate Blood Pressure 135/77 169/88 O2 Sat by Pulse 99 97 97 Oximetry 10/12/18 10/12/18 10/12/18 04:31 05:00 05:31 Temperature Pulse Rate 133 H 131 H 135 H Pulse Rate [ From Monitor] Respiratory 25 H 22 26 H Rate Blood Pressure 172/86 170/99 181/101 O2 Sat by Pulse 99 97 98 Oximetry 10/12/18 10/12/18 10/12/18 06:01 06:31 07:01 Temperature Pulse Rate 134 H 133 H 123 H Pulse Rate [ From Monitor] Respiratory 16 16 19 Rate Blood Pressure 181/101 136/103 139/97 O2 Sat by Pulse 98 97 97 Oximetry 10/12/18 10/12/18 10/12/18 07:31 08:00 08:01 Temperature Pulse Rate 124 H 122 H Pulse Rate [ 122 H From Monitor] Respiratory 23 24 24 Rate Blood Pressure 161/92 176/101 O2 Sat by Pulse 100 98 98 Oximetry 10/12/18 10/12/18 10/12/18 08:31 08:43 09:01 Temperature Pulse Rate 118 H 124 H 122 H Pulse Rate [ From Monitor] Respiratory 22 25 H 31 H Rate Blood Pressure 176/98 175/95 O2 Sat by Pulse 98 96 94 Oximetry 10/12/18 10/12/18 10/12/18 09:02 09:31 10:01 Temperature Pulse Rate 122 H 116 H 128 H Pulse Rate [ From Monitor] Respiratory 25 H 29 H Rate Blood Pressure 175/95 170/88 157/78 O2 Sat by Pulse 97 97 Oximetry 10/12/18 10/12/18 10/12/18 10:25 10:31 11:15 Temperature Pulse Rate 130 H 129 H 130 H Pulse Rate [ From Monitor] Respiratory 30 H Rate Blood Pressure 146/79 135/84 O2 Sat by Pulse 97 Oximetry - General Appearance General appearance: well-developed, well-nourished, appears stated age EENT: PERRL, mucous membranes moist Neck: no JVD, no thyromegaly, no carotid bruit, supple Respiratory: Present: Clear to Ascultation Cardiology: regular, normal heart rate, S1S2, no murmurs, other (mechanical valve sound noted) Gastrointestinal: normal, normoactive bowel sounds Integumentary: no rash, other (no edema) - Lab 10/11/18 14:25 10/12/18 04:25 Most recent lab results Calcium 8.0 mg/dL (8.4-10.2) L 10/12/18 04:25 Phosphorus 7.40 mg/dL (2.5-4.5) H 10/07/18 22:08 Magnesium 1.90 mg/dL (1.7-2.3) 10/08/18 04:05 Medications & Allergies - Medications Allergies/Adverse Reactions: Allergies No Known Allergies Allergy (Verified 12/03/16 23:01) Home Medications: Home Medications Medication Instructions Recorded Confirmed Last Taken Type Metoprolol [Lopressor TAB] 25 mg PO BID #60 tablet 12/29/16 08/11/18 Unknown Rx Famotidine [Pepcid] 20 mg PO DAILY #30 tablet 02/04/17 08/07/18 Unknown Rx Metoprolol [Lopressor TAB] 50 mg PO TID #90 tablet 02/04/17 08/07/18 Unknown Rx Coumadin 5 mg PO .ASDIR #30 08/13/18 Unknown Rx Ferrous Sulfate [Feosol 325 MG tab] 325 mg PO BID #60 tablet 08/13/18 Unknown Rx Folic Acid [Folvite] 1 mg PO QDAY #30 tablet 08/13/18 Unknown Rx Furosemide [Lasix TAB] 40 mg PO DAILY #30 tablet 08/13/18 08/07/18 Unknown Rx Insulin Glargine [Lantus VIAL] 5 units SUB-Q BIDDIAB 30 Days 08/13/18 Unknown Rx units Multivitamin Tab [Multiple Vitamin 1 each PO QDAY #30 tablet 08/13/18 Unknown Rx TAB (Theragran)] Pantoprazole [Protonix TAB] 40 mg PO DAILY #30 tablet 08/13/18 Unknown Rx Thiamine [Vitamin B-1] 100 mg PO QDAY #30 tablet 08/13/18 Unknown Rx Warfarin [Coumadin] 7.5 mg PO .ASDIR 30 Days tablet 08/13/18 Unknown Rx Active Medications: Generic Name Dose Route Start Last Admin Trade Name Freq PRN Reason Stop Dose Admin Acetaminophen 650 mg 10/07/18 04:59 Tylenol PO Q4H PRN Pain MILD(1-3)/Fever >100.5/RODRIGUEZ Lipase/Protease/Amylase 1 each 10/08/18 10:00 Jonatan Arredondo 10,500 Unit FEEDTUBE PRN PRN For Clogged Feeding Tube Dextrose 50 ml 10/07/18 20:42 10/10/18 05:46 D50w (25gm) Syringe IV 50 ml PRN PRN Administration Hypoglycemia Fentanyl 50 mcg 10/07/18 09:07 10/12/18 09:05 Sublimaze IV 50 mcg Q10MIN PRN Administration ANALGESIA Furosemide 40 mg 10/12/18 12:00 10/12/18 11:15 Lasix IV 40 mg QDAY ULI Administration Hydralazine HCl 10 mg 10/07/18 05:07 10/12/18 09:02 Apresoline IV 10 mg Q4H PRN Administration Blood Pressure Hydrophilic Ointment 1 applic 10/07/18 02:40 Vaseline Lip Therapy TP Q2HR PRN Dry Lips Fentanyl Citrate 2,000 mcg in 100 mls @ 3.402 mls/hr 10/07/18 10:00 10/11/18 09:20 Fentanyl Drip Premix IV 0 mcg/kg/hr TITR ULI 0 mls/hr Titration Protocol 1 MCG/KG/HR Heparin Sodium/Sodium Chloride 25,000 unit in 500 mls @ 20 mls/hr 10/11/18 15:00 10/11/18 14:58 Heparin/ 0.45% Nacl-25,000 Unit/500 Ml IV 1,000 units/hr TITR ULI 20 mls/hr Administration Protocol 1,000 UNITS/HR Ceftriaxone Sodium 2 gm in 100 mls @ 200 mls/hr 10/11/18 18:30 10/11/18 18:09 Rocephin/Ns 2 Gm/100 Ml IV 10/12/18 23:59 200 mls/hr Q24H ULI Administration Protocol Metronidazole 500 mg in 100 mls @ 100 mls/hr 10/11/18 18:00 10/12/18 09:34 Flagyl 500 Mg/100 Ml IV 10/12/18 23:59 100 mls/hr Q8H ULI Administration Protocol Insulin Glargine 5 units 10/12/18 12:00 Lantus SUB-Q DAILY ULI Insulin Human Lispro 0 unit 10/09/18 00:00 10/12/18 06:11 Humalog SUB-Q 3 unit Q6HR ULI Administration Protocol Lansoprazole 30 mg 10/12/18 10:00 10/12/18 09:02 Prevacid Solutab FEEDTUBE 30 mg QDAY ULI Administration Metoclopramide HCl 10 mg 10/11/18 13:00 Reglan IV Q6HR PRN Nausea And Vomiting Metoprolol Tartrate 25 mg 10/12/18 11:00 10/12/18 11:15 Lopressor PO 25 mg TID ULI Administration Midazolam HCl 2 mg 10/07/18 06:03 10/12/18 04:21 Versed IV 2 mg Q10MIN PRN Administration Sedation Multi-Ingred Cream/Lotion/Oil/Oint 1 applic 10/07/18 02:40 Artificial Tears Ophth Oint OU Q4HR PRN Dry Eye(s) Ondansetron HCl 4 mg 10/07/18 04:59 Zofran IV Q8H PRN N/V unrelieved by Kojo Quetiapine Fumarate 100 mg 10/09/18 22:00 10/11/18 21:19 Seroquel PO 100 mg QHS ULI Administration Simple Syrup 15 ml 10/08/18 10:00 Simple Syrup FEEDTUBE PRN PRN Hypoglycemia Simple Syrup 30 ml 10/08/18 10:00 10/09/18 01:09 Simple Syrup FEEDTUBE 30 ml PRN PRN Administration Hypoglycemia Sodium Bicarbonate 325 mg 10/08/18 10:00 Sodium Bicarbonate FEEDTUBE PRN PRN For Clogged Feeding Tube Sodium Chloride 10 ml 10/07/18 10:00 10/12/18 09:04 Sodium Chloride Flush Syringe 10 Ml IV 10 ml BID ULI Administration Sodium Chloride 10 ml 10/07/18 04:59 Sodium Chloride Flush Syringe 10 Ml IV PRN PRN LINE FLUSH Warfarin Sodium 7.5 mg 10/12/18 17:00 Coumadin PO DAILY@1700 [facility]
--- NOTE | 2018-10-12 11:59 | Gastroenterology Progress Note ---
Assessment and Plan 1.drop in H/H/anemia (chronic) -H/H 8.2/26.4-trended up yesterday; repeat H/H pending for today -continue to monitor H/H and transfuse as needed -no active sign of bleeding overnight or this am -last EGD 08/05/2018 showed gastritis with mild self-limited oozing of blood but no high risk bleeding lesions -etiology-anemia likely multifactorial -no plan for scope at this time unless overt signs of bleeding develop given no significant clinical evidence of GI bleeding (patient currently critically ill, intubated in ICU with multiple co-morbidities) -continue anticagulatoion as recommended per cardiology (currently on heparin drip)-monitor and hold for active signs of bleeding -continue PPI and supportive care -electrolyte management per primary team 2.PNA, severe sepsis with organ dysfunction 3.acute respiratory failure (on vent) 4.status epilepticus 5.acute on chronic systolic CHF 6.DM 7.ASHELY upon CKD 8.AMS 9.CAD (s/p CABG) 10.H/O mitral valve replacement with mechanical valve Subjective Date of service: 10/12/18 Principal diagnosis: GI bleed?, clearance for anticoagulation Interval history: Patient remains intubated in ICU on heparin drip. No active signs of bleeding overnight or this am per nursing. Objective - Constitutional Vitals: Temp Pulse Resp BP Pulse Ox 99.0 F 130 H 30 H 135/84 97 10/12/18 04:00 10/12/18 11:15 10/12/18 10:31 10/12/18 11:15 10/12/18 10:31 General appearance: other (in ICU on vent) - EENT ENT: other (+ETT, +OGT) - Respiratory Respiratory: bilateral: diminished - Cardiovascular Rhythm: other (tachycardia) - Gastrointestinal General gastrointestinal: Present: soft, non-distended, normal bowel sounds, other - Labs CBC & Chem 7: 10/11/18 14:25 10/12/18 04:25 Labs: Laboratory Results - last 24 hr 10/11/18 10/11/18 10/11/18 11:14 13:32 14:25 WBC 8.4 RBC 3.32 L Hgb 8.2 L Hct 26.4 L MCV 80 MCH 25 L MCHC 31 RDW 21.6 H Plt Count 286 PT 21.7 H INR 1.76 H APTT 50.5 H Heparin Anti-Xa Level POC ABG pH POC ABG pCO2 POC ABG pO2 POC ABG HCO3 POC ABG Total CO2 POC ABG O2 Sat POC ABG Base Excess FiO2 Sodium Potassium Chloride Carbon Dioxide Anion Gap BUN Creatinine Estimated GFR BUN/Creatinine Ratio Glucose POC Glucose 138 H Calcium 10/11/18 10/11/18 10/11/18 14:25 15:41 17:31 WBC RBC Hgb Hct MCV MCH MCHC RDW Plt Count PT 20.6 H INR 1.65 H APTT 54.9 H Heparin Anti-Xa Level POC ABG pH 7.442 POC ABG pCO2 41.2 POC ABG pO2 53 L POC ABG HCO3 28.2 POC ABG Total CO2 29 POC ABG O2 Sat 88 POC ABG Base Excess 4 FiO2 30 Sodium Potassium Chloride Carbon Dioxide Anion Gap BUN Creatinine Estimated GFR BUN/Creatinine Ratio Glucose POC Glucose 133 H Calcium 10/11/18 10/12/18 10/12/18 20:53 00:30 03:56 WBC RBC Hgb Hct MCV MCH MCHC RDW Plt Count PT INR APTT Heparin Anti-Xa Level 0.62 POC ABG pH 7.514 H POC ABG pCO2 31.2 L POC ABG pO2 103 POC ABG HCO3 25.1 POC ABG Total CO2 26 POC ABG O2 Sat 99 POC ABG Base Excess 2 FiO2 30 Sodium Potassium Chloride Carbon Dioxide Anion Gap BUN Creatinine Estimated GFR BUN/Creatinine Ratio Glucose POC Glucose 353 H Calcium 10/12/18 10/12/18 04:25 04:49 WBC RBC Hgb Hct MCV MCH MCHC RDW Plt Count PT INR APTT Heparin Anti-Xa Level POC ABG pH POC ABG pCO2 POC ABG pO2 POC ABG HCO3 POC ABG Total CO2 POC ABG O2 Sat POC ABG Base Excess FiO2 Sodium 139 Potassium 4.3 Chloride 104.6 Carbon Dioxide 26 Anion Gap 13 BUN 16 Creatinine 1.6 H Estimated GFR 41 BUN/Creatinine Ratio 10 Glucose 287 H POC Glucose 297 H Calcium 8.0 L
[2018-10-12] MEDS ORDERED: LASIX IV SCH (12:00)
--- NOTE | 2018-10-12 12:15 | Event Note ---
Date: 10/12/18 bloody ETT secretions suspect pulm edema element A&P: - repeat CBC tonight - increase lasix to bid X 48 hours
[2018-10-12] MEDS: LANTUS SUB-Q SCH (12:46)
[2018-10-12] MEDS: TYLENOL PO PRN (12:47)
[2018-10-12] MEDS: fentaNYL DRIP Premix 2,000 MCG/100 ML BAG IV SCH (12:48)
[2018-10-12] MEDS: LOPRESSOR PO SCH ×2 (13:09→19:33)
--- NOTE | 2018-10-12 14:33 | Progress Note ---
Subjective Date of service: 10/12/18 Principal diagnosis: Ac hypoxemic resp failure; Seizures (?hypoglycemic); Ac encephalopathy(T/M) Interval history: patient seen and assessed I have ordered an EEG and will review once available for evaluation and management recommendations Objective - Vital Sign Vital Signs - 12hr 10/12/18 10/12/18 10/12/18 03:00 03:13 03:31 Temperature Pulse Rate 113 H 113 H 113 H Pulse Rate [ From Monitor] Respiratory 20 20 Rate Blood Pressure 161/91 161/91 135/77 O2 Sat by Pulse 99 98 99 Oximetry 10/12/18 10/12/18 10/12/18 04:00 04:01 04:31 Temperature 99.0 F Pulse Rate 133 H 133 H Pulse Rate [ 133 H From Monitor] Respiratory 19 25 H Rate Blood Pressure 169/88 172/86 O2 Sat by Pulse 97 97 99 Oximetry 10/12/18 10/12/18 10/12/18 05:00 05:31 06:01 Temperature Pulse Rate 131 H 135 H 134 H Pulse Rate [ From Monitor] Respiratory 22 26 H 16 Rate Blood Pressure 170/99 181/101 181/101 O2 Sat by Pulse 97 98 98 Oximetry 10/12/18 10/12/18 10/12/18 06:31 07:01 07:31 Temperature Pulse Rate 133 H 123 H 124 H Pulse Rate [ From Monitor] Respiratory 16 19 23 Rate Blood Pressure 136/103 139/97 161/92 O2 Sat by Pulse 97 97 100 Oximetry 10/12/18 10/12/18 10/12/18 08:00 08:01 08:31 Temperature Pulse Rate 122 H 118 H Pulse Rate [ 122 H From Monitor] Respiratory 24 24 22 Rate Blood Pressure 176/101 176/98 O2 Sat by Pulse 98 98 98 Oximetry 10/12/18 10/12/18 10/12/18 08:43 09:01 09:02 Temperature Pulse Rate 124 H 122 H 122 H Pulse Rate [ From Monitor] Respiratory 25 H 31 H Rate Blood Pressure 175/95 175/95 O2 Sat by Pulse 96 94 Oximetry 10/12/18 10/12/18 10/12/18 09:31 10:01 10:25 Temperature Pulse Rate 116 H 128 H 130 H Pulse Rate [ From Monitor] Respiratory 25 H 29 H Rate Blood Pressure 170/88 157/78 O2 Sat by Pulse 97 97 Oximetry 10/12/18 10/12/18 10/12/18 10:31 11:00 11:15 Temperature Pulse Rate 129 H 127 H 130 H Pulse Rate [ From Monitor] Respiratory 30 H 29 H Rate Blood Pressure 146/79 135/84 135/84 O2 Sat by Pulse 97 96 Oximetry 10/12/18 10/12/18 10/12/18 11:31 12:00 12:01 Temperature Pulse Rate 127 H 121 H Pulse Rate [ 121 H From Monitor] Respiratory 30 H 18 18 Rate Blood Pressure 162/88 162/88 O2 Sat by Pulse 95 95 95 Oximetry 10/12/18 10/12/18 10/12/18 12:35 13:06 13:09 Temperature Pulse Rate 130 H 134 H 124 H Pulse Rate [ From Monitor] Respiratory Rate Blood Pressure 173/96 173/96 O2 Sat by Pulse 95 Oximetry - Laboratory Findings CBC and BMP: 10/11/18 14:25 10/12/18 04:25 Abnormal Lab Findings: Abnormal Labs 10/07/18 10/07/18 10/07/18 02:20 02:43 02:43 WBC RBC Hgb Hct MCH 25 L RDW 21.5 H Lymph % (Auto) Boyd % (Auto) Lymph # 0.9 L Boyd # Seg Neutrophils % 78.4 H Seg Neutrophils # PT INR APTT POC ABG pH POC ABG pCO2 POC ABG pO2 Sodium Potassium Chloride 108.0 H Carbon Dioxide 21 L BUN Creatinine 1.5 H Glucose 115 H POC Glucose 136 H Hemoglobin A1c Lactic Acid Calcium Phosphorus AST 51 H Alkaline Phosphatase 257 H NT-Pro-B Natriuret Pep Total Protein Albumin 10/07/18 10/07/18 10/07/18 02:43 04:32 05:12 WBC RBC Hgb Hct MCH RDW Lymph % (Auto) Boyd % (Auto) Lymph # Boyd # Seg Neutrophils % Seg Neutrophils # PT 25.4 H INR 2.14 H APTT POC ABG pH POC ABG pCO2 33.6 L POC ABG pO2 69 L Sodium Potassium Chloride Carbon Dioxide BUN Creatinine Glucose POC Glucose Hemoglobin A1c Lactic Acid 2.40 H* Calcium Phosphorus AST Alkaline Phosphatase NT-Pro-B Natriuret Pep Total Protein Albumin 10/07/18 10/07/18 10/07/18 06:28 18:39 20:26 WBC RBC Hgb Hct MCH RDW Lymph % (Auto) Boyd % (Auto) Lymph # Boyd # Seg Neutrophils % Seg Neutrophils # PT INR APTT POC ABG pH POC ABG pCO2 POC ABG pO2 Sodium Potassium Chloride Carbon Dioxide BUN Creatinine Glucose POC Glucose 164 H 440 H > 500 H Hemoglobin A1c Lactic Acid Calcium Phosphorus AST Alkaline Phosphatase NT-Pro-B Natriuret Pep Total Protein Albumin 10/07/18 10/07/18 10/07/18 20:28 21:53 22:08 WBC RBC Hgb Hct MCH RDW Lymph % (Auto) Boyd % (Auto) Lymph # Boyd # Seg Neutrophils % Seg Neutrophils # PT INR APTT POC ABG pH POC ABG pCO2 POC ABG pO2 Sodium 136 L D Potassium 6.4 H* D Chloride Carbon Dioxide 10 L D BUN 30 H Creatinine 2.0 H Glucose 544 H* POC Glucose 483 H > 500 H Hemoglobin A1c Lactic Acid Calcium 7.0 L D Phosphorus AST Alkaline Phosphatase NT-Pro-B Natriuret Pep Total Protein Albumin 10/07/18 10/07/18 10/07/18 22:08 22:08 22:56 WBC RBC Hgb Hct MCH RDW Lymph % (Auto) Boyd % (Auto) Lymph # Boyd # Seg Neutrophils % Seg Neutrophils # PT INR APTT POC ABG pH POC ABG pCO2 POC ABG pO2 Sodium Potassium Chloride Carbon Dioxide BUN Creatinine Glucose POC Glucose 462 H Hemoglobin A1c 10.2 H Lactic Acid Calcium Phosphorus 7.40 H AST Alkaline Phosphatase NT-Pro-B Natriuret Pep Total Protein Albumin 10/07/18 10/08/18 10/08/18 23:39 00:58 02:09 WBC RBC Hgb Hct MCH RDW Lymph % (Auto) Boyd % (Auto) Lymph # Boyd # Seg Neutrophils % Seg Neutrophils # PT INR APTT POC ABG pH POC ABG pCO2 POC ABG pO2 Sodium Potassium Chloride Carbon Dioxide BUN Creatinine Glucose POC Glucose 396 H 375 H 285 H Hemoglobin A1c Lactic Acid Calcium Phosphorus AST Alkaline Phosphatase NT-Pro-B Natriuret Pep Total Protein Albumin 10/08/18 10/08/18 10/08/18 03:10 03:33 04:05 WBC RBC Hgb Hct MCH RDW Lymph % (Auto) Boyd % (Auto) Lymph # Boyd # Seg Neutrophils % Seg Neutrophils # PT INR APTT POC ABG pH 7.243 L POC ABG pCO2 33.8 L POC ABG pO2 126 H Sodium Potassium 5.3 H Chloride 110.7 H Carbon Dioxide 14 L BUN 33 H Creatinine 2.2 H Glucose 193 H POC Glucose 251 H Hemoglobin A1c Lactic Acid Calcium 7.0 L Phosphorus AST Alkaline Phosphatase 155 H NT-Pro-B Natriuret Pep Total Protein 5.2 L D Albumin 2.6 L 10/08/18 10/08/18 10/08/18 04:05 04:05 04:09 WBC 11.8 H RBC 3.32 L Hgb 8.3 L Hct 27.5 L D MCH 25 L RDW 22.0 H Lymph % (Auto) 6.8 L Boyd % (Auto) 12.0 H Lymph # 0.8 L Boyd # 1.4 H Seg Neutrophils % 80.6 H Seg Neutrophils # 9.5 H PT INR APTT POC ABG pH POC ABG pCO2 POC ABG pO2 Sodium Potassium Chloride Carbon Dioxide BUN Creatinine Glucose POC Glucose 175 H Hemoglobin A1c Lactic Acid 3.70 H* Calcium Phosphorus AST Alkaline Phosphatase NT-Pro-B Natriuret Pep Total Protein Albumin 10/08/18 10/08/18 10/08/18 05:07 06:05 07:14 WBC RBC Hgb Hct MCH RDW Lymph % (Auto) Boyd % (Auto) Lymph # Boyd # Seg Neutrophils % Seg Neutrophils # PT INR APTT POC ABG pH POC ABG pCO2 POC ABG pO2 Sodium Potassium Chloride Carbon Dioxide BUN Creatinine Glucose POC Glucose 125 H 122 H 147 H Hemoglobin A1c Lactic Acid Calcium Phosphorus AST Alkaline Phosphatase NT-Pro-B Natriuret Pep Total Protein Albumin 10/08/18 10/08/18 10/08/18 07:22 08:09 08:47 WBC RBC Hgb Hct MCH RDW Lymph % (Auto) Boyd % (Auto) Lymph # Boyd # Seg Neutrophils % Seg Neutrophils # PT INR APTT POC ABG pH POC ABG pCO2 POC ABG pO2 Sodium Potassium 5.2 H Chloride 112.4 H Carbon Dioxide 17 L BUN 32 H Creatinine 2.1 H Glucose 148 H POC Glucose 134 H 148 H Hemoglobin A1c Lactic Acid Calcium 6.6 L Phosphorus AST Alkaline Phosphatase NT-Pro-B Natriuret Pep Total Protein Albumin 10/08/18 10/08/18 10/08/18 10:21 13:29 14:21 WBC RBC Hgb Hct MCH RDW Lymph % (Auto) Boyd % (Auto) Lymph # Boyd # Seg Neutrophils % Seg Neutrophils # PT INR APTT POC ABG pH POC ABG pCO2 POC ABG pO2 Sodium Potassium Chloride Carbon Dioxide BUN Creatinine Glucose POC Glucose 115 H 109 H 118 H Hemoglobin A1c Lactic Acid Calcium Phosphorus AST Alkaline Phosphatase NT-Pro-B Natriuret Pep Total Protein Albumin 10/08/18 10/08/18 10/08/18 15:27 17:00 17:00 WBC 11.3 H RBC 3.21 L Hgb 7.9 L Hct 25.7 L MCH 25 L RDW 21.8 H Lymph % (Auto) 8.5 L Boyd % (Auto) 7.7 H Lymph # 1.0 L Boyd # 0.9 H Seg Neutrophils % 82.8 H Seg Neutrophils # 9.3 H PT INR APTT POC ABG pH POC ABG pCO2 POC ABG pO2 Sodium Potassium Chloride Carbon Dioxide BUN Creatinine Glucose POC Glucose 129 H Hemoglobin A1c Lactic Acid Calcium Phosphorus AST Alkaline Phosphatase NT-Pro-B Natriuret Pep 3097 H Total Protein Albumin 10/08/18 10/08/18 10/08/18 17:07 17:12 18:22 WBC RBC Hgb Hct MCH RDW Lymph % (Auto) Boyd % (Auto) Lymph # Boyd # Seg Neutrophils % Seg Neutrophils # PT INR APTT POC ABG pH 7.337 L POC ABG pCO2 32.0 L POC ABG pO2 130 H Sodium Potassium Chloride 115.5 H Carbon Dioxide 17 L BUN 30 H Creatinine 1.9 H Glucose 103 H POC Glucose 119 H Hemoglobin A1c Lactic Acid Calcium 6.9 L Phosphorus AST Alkaline Phosphatase NT-Pro-B Natriuret Pep Total Protein Albumin 10/08/18 10/08/18 10/09/18 20:09 20:57 01:10 WBC RBC Hgb Hct MCH RDW Lymph % (Auto) Boyd % (Auto) Lymph # Boyd # Seg Neutrophils % Seg Neutrophils # PT INR APTT POC ABG pH POC ABG pCO2 POC ABG pO2 Sodium Potassium Chloride 114.3 H 113.7 H Carbon Dioxide 15 L 14 L BUN 29 H 29 H Creatinine 2.1 H 2.0 H Glucose 132 H 39 L* POC Glucose 150 H Hemoglobin A1c Lactic Acid Calcium 6.7 L 6.9 L Phosphorus AST Alkaline Phosphatase NT-Pro-B Natriuret Pep Total Protein Albumin 10/09/18 10/09/18 10/09/18 01:10 01:43 03:20 WBC RBC Hgb Hct MCH RDW Lymph % (Auto) Boyd % (Auto) Lymph # Boyd # Seg Neutrophils % Seg Neutrophils # PT INR APTT POC ABG pH POC ABG pCO2 POC ABG pO2 Sodium Potassium Chloride Carbon Dioxide BUN Creatinine Glucose POC Glucose < 40 L < 40 L Hemoglobin A1c Lactic Acid Calcium Phosphorus AST Alkaline Phosphatase NT-Pro-B Natriuret Pep 2865 H Total Protein Albumin 10/09/18 10/09/18 10/09/18 04:23 05:03 05:25 WBC RBC Hgb Hct MCH RDW Lymph % (Auto) Boyd % (Auto) Lymph # Boyd # Seg Neutrophils % Seg Neutrophils # PT INR APTT POC ABG pH POC ABG pCO2 30.6 L 32.3 L POC ABG pO2 118 H Sodium Potassium Chloride Carbon Dioxide BUN Creatinine Glucose POC Glucose 148 H Hemoglobin A1c Lactic Acid Calcium Phosphorus AST Alkaline Phosphatase NT-Pro-B Natriuret Pep Total Protein Albumin 10/09/18 10/09/18 10/09/18 06:00 08:34 09:58 WBC RBC Hgb Hct MCH RDW Lymph % (Auto) Boyd % (Auto) Lymph # Boyd # Seg Neutrophils % Seg Neutrophils # PT INR APTT POC ABG pH POC ABG pCO2 POC ABG pO2 Sodium Potassium Chloride Carbon Dioxide BUN Creatinine Glucose POC Glucose 173 H 196 H 183 H Hemoglobin A1c Lactic Acid Calcium Phosphorus AST Alkaline Phosphatase NT-Pro-B Natriuret Pep Total Protein Albumin 10/09/18 10/09/18 10/09/18 12:25 12:46 18:16 WBC RBC Hgb Hct MCH RDW Lymph % (Auto) Boyd % (Auto) Lymph # Boyd # Seg Neutrophils % Seg Neutrophils # PT INR APTT POC ABG pH POC ABG pCO2 POC ABG pO2 Sodium Potassium Chloride 110.3 H Carbon Dioxide 16 L BUN 24 H Creatinine 1.8 H Glucose 207 H POC Glucose 208 H 177 H Hemoglobin A1c Lactic Acid Calcium 6.9 L Phosphorus AST Alkaline Phosphatase NT-Pro-B Natriuret Pep Total Protein Albumin 10/09/18 10/10/18 10/10/18 21:11 00:11 05:41 WBC RBC Hgb Hct MCH RDW Lymph % (Auto) Boyd % (Auto) Lymph # Boyd # Seg Neutrophils % Seg Neutrophils # PT INR APTT POC ABG pH POC ABG pCO2 POC ABG pO2 Sodium Potassium Chloride Carbon Dioxide BUN Creatinine Glucose POC Glucose 124 H 156 H 42 L Hemoglobin A1c Lactic Acid Calcium Phosphorus AST Alkaline Phosphatase NT-Pro-B Natriuret Pep Total Protein Albumin 10/10/18 10/10/18 10/10/18 05:45 07:28 12:07 WBC RBC Hgb Hct MCH RDW Lymph % (Auto) Boyd % (Auto) Lymph # Boyd # Seg Neutrophils % Seg Neutrophils # PT INR APTT POC ABG pH POC ABG pCO2 POC ABG pO2 Sodium 146 H D Potassium Chloride 111.2 H Carbon Dioxide BUN 21 H Creatinine 1.8 H Glucose 44 L POC Glucose 114 H 49 L Hemoglobin A1c Lactic Acid Calcium 7.4 L Phosphorus AST Alkaline Phosphatase NT-Pro-B Natriuret Pep Total Protein Albumin 10/10/18 10/10/18 10/10/18 12:37 18:02 20:47 WBC RBC Hgb Hct MCH RDW Lymph % (Auto) Boyd % (Auto) Lymph # Boyd # Seg Neutrophils % Seg Neutrophils # PT INR APTT POC ABG pH POC ABG pCO2 POC ABG pO2 Sodium Potassium Chloride Carbon Dioxide BUN Creatinine Glucose POC Glucose 142 H 49 L 162 H Hemoglobin A1c Lactic Acid Calcium Phosphorus AST Alkaline Phosphatase NT-Pro-B Natriuret Pep Total Protein Albumin 10/10/18 10/10/18 10/10/18 21:45 22:19 23:50 WBC RBC Hgb Hct MCH RDW Lymph % (Auto) Boyd % (Auto) Lymph # Boyd # Seg Neutrophils % Seg Neutrophils # PT INR APTT POC ABG pH 7.334 L POC ABG pCO2 47.0 H POC ABG pO2 53 L 79 L Sodium Potassium Chloride Carbon Dioxide BUN Creatinine Glucose POC Glucose 185 H Hemoglobin A1c Lactic Acid Calcium Phosphorus AST Alkaline Phosphatase NT-Pro-B Natriuret Pep Total Protein Albumin 10/11/18 10/11/18 10/11/18 05:00 06:41 07:17 WBC RBC Hgb Hct MCH RDW Lymph % (Auto) Boyd % (Auto) Lymph # Boyd # Seg Neutrophils % Seg Neutrophils # PT INR APTT POC ABG pH POC ABG pCO2 POC ABG pO2 Sodium Potassium Chloride Carbon Dioxide BUN Creatinine 1.7 H Glucose 43 L POC Glucose 48 L 129 H Hemoglobin A1c Lactic Acid Calcium 7.7 L Phosphorus AST Alkaline Phosphatase NT-Pro-B Natriuret Pep Total Protein Albumin 10/11/18 10/11/18 10/11/18 11:14 13:32 14:25 WBC RBC 3.32 L Hgb 8.2 L Hct 26.4 L MCH 25 L RDW 21.6 H Lymph % (Auto) Boyd % (Auto) Lymph # Boyd # Seg Neutrophils % Seg Neutrophils # PT 21.7 H INR 1.76 H APTT 50.5 H POC ABG pH POC ABG pCO2 POC ABG pO2 Sodium Potassium Chloride Carbon Dioxide BUN Creatinine Glucose POC Glucose 138 H Hemoglobin A1c Lactic Acid Calcium Phosphorus AST Alkaline Phosphatase NT-Pro-B Natriuret Pep Total Protein Albumin 10/11/18 10/11/18 10/11/18 14:25 15:41 17:31 WBC RBC Hgb Hct MCH RDW Lymph % (Auto) Boyd % (Auto) Lymph # Boyd # Seg Neutrophils % Seg Neutrophils # PT 20.6 H INR 1.65 H APTT 54.9 H POC ABG pH POC ABG pCO2 POC ABG pO2 53 L Sodium Potassium Chloride Carbon Dioxide BUN Creatinine Glucose POC Glucose 133 H Hemoglobin A1c Lactic Acid Calcium Phosphorus AST Alkaline Phosphatase NT-Pro-B Natriuret Pep Total Protein Albumin 10/12/18 10/12/18 10/12/18 00:30 03:56 04:25 WBC RBC Hgb Hct MCH RDW Lymph % (Auto) Boyd % (Auto) Lymph # Boyd # Seg Neutrophils % Seg Neutrophils # PT INR APTT POC ABG pH 7.514 H POC ABG pCO2 31.2 L POC ABG pO2 Sodium Potassium Chloride Carbon Dioxide BUN Creatinine 1.6 H Glucose 287 H POC Glucose 353 H Hemoglobin A1c Lactic Acid Calcium 8.0 L Phosphorus AST Alkaline Phosphatase NT-Pro-B Natriuret Pep Total Protein Albumin 10/12/18 10/12/18 04:49 12:13 WBC RBC Hgb Hct MCH RDW Lymph % (Auto) Boyd % (Auto) Lymph # Boyd # Seg Neutrophils % Seg Neutrophils # PT INR APTT POC ABG pH POC ABG pCO2 POC ABG pO2 Sodium Potassium Chloride Carbon Dioxide BUN Creatinine Glucose POC Glucose 297 H 290 H Hemoglobin A1c Lactic Acid Calcium Phosphorus AST Alkaline Phosphatase NT-Pro-B Natriuret Pep Total Protein Albumin
--- NOTE | 2018-10-12 15:14 | Progress Note ---
Assessment and Plan Assessment and plan: 48 year old woman with history of coronary artery disease, status post cabbage, diabetes, hypertension who was brought to the emergency room for altered mental status. She was found to have hypoglycemia, she was also having convulsions at the time of admission. The patient was intubated, sp dextrose she was put on the ventilator she was found to have pneumonia and CHF flare and started on antibiotics. Pneumonia continue antibiotics Continue to wean ventilator per pulmonology CT head, no acute findings Chest x-ray right lower lobe infiltrates, right pleural effusion PNA, severe sepsis with organ dysfunction; cont abx, LA improving, ID consult acute respiratory failure mechanical ventilator; cont vent, wean per pulmonology status epilepticus; Seizures when most likely due to hypoglycemia, continue dextrose as needed, judicious use of insulin -eeg, neurology consult appreciated Acute on chronic systolic CHF EF 40%, dilated ventricles sp few doses of bumex, optimize meds, cardiology consult History of mitral valve replacement - patient is on heparin and warfarin - will follow INR - Cardiology is on board 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, treated as type 1, uncontrolled, a1c 10.2 Continue insulins, brittle DM with episodes of hypoglycemia and hyperglycemia, labile glc Mazin upon ckd stage 3, vasomotor nephropathy and likely ATN from sepsis Nephrology input appreciated, avoid nephrotoxins, improving hypernatremia resolved after she received hypotonic ivf Hyperkalemia Improving with insulin and diuretics htn urgency; optimize bp meds Marijuana abuse dvt ppx- heparin Diagnosis status epilepticus hypoglycemia aspiration pneumonia type 2 diabetes coronary artery disease acute metabolic encephalopathy acute respiratory failure mechanical ventilator greater than 96 hours The high probability of a clinically significant, sudden or life threatening deterioration of the [respiratory, neurology, cardiology] system(s) required my full and direct attention, intervention and personal management. The aggregate critical care time was [34] minutes. This time is in addition to time spent performing reported procedures but includes the following: [x] Data Review and interpretation [x] Patient assessment and monitoring of vital signs [x] Documentation [x] Medication orders and management History Interval history: Patient was seen and evaluated this morning, patient was intubated and on mechanical ventilation. Hospitalist Physical - Physical exam Narrative exam: Patient is intubated and on mechanical ventilation The patient appeared well nourished and normally developed. Vital signs as documented. Head exam is unremarkable. No scleral icterus . Neck is without jugular venous distension, thyromegaly, or carotid bruits. Lungs are clear to auscultation. Cardiac exam reveals regular rate and Rhythm. Abdominal exam reveals normal bowel sounds Extremities are nonedematous. DIRECTOR OF CAREER RESOURCES:alert and oriented. - Constitutional Vitals: Temp Pulse Resp BP Pulse Ox 99.0 F 124 H 18 173/96 95 10/12/18 04:00 10/12/18 13:09 10/12/18 12:01 10/12/18 13:09 10/12/18 12:35 General appearance: Present: other (intubated, eyes open, no purposeful response to commands) Results - Labs CBC & Chem 7: 10/11/18 14:25 10/12/18 04:25 Labs: Laboratory Last Values WBC 8.4 K/mm3 (4.5-11.0) 10/11/18 14:25 RBC 3.32 M/mm3 (3.65-5.03) L 10/11/18 14:25 Hgb 8.2 gm/dl (10.1-14.3) L 10/11/18 14:25 Hct 26.4 % (30.3-42.9) L 10/11/18 14:25 MCV 80 fl (79-97) 10/11/18 14:25 MCH 25 pg (28-32) L 10/11/18 14:25 MCHC 31 % (30-34) 10/11/18 14:25 RDW 21.6 % (13.2-15.2) H 10/11/18 14:25 Plt Count 286 K/mm3 (140-440) 10/11/18 14:25 Lymph % (Auto) 8.5 % (13.4-35.0) L 10/08/18 17:00 [place] % (Auto) 7.7 % (0.0-7.3) H 10/08/18 17:00 Eos % (Auto) 0.5 % (0.0-4.3) 10/08/18 17:00 Baso % (Auto) 0.5 % (0.0-1.8) 10/08/18 17:00 Lymph # 1.0 K/mm3 (1.2-5.4) L 10/08/18 17:00 [place] # 0.9 K/mm3 (0.0-0.8) H 10/08/18 17:00 Eos # 0.1 K/mm3 (0.0-0.4) 10/08/18 17:00 Baso # 0.1 K/mm3 (0.0-0.1) 10/08/18 17:00 Seg Neutrophils % 82.8 % (40.0-70.0) H 10/08/18 17:00 Seg Neutrophils # 9.3 K/mm3 (1.8-7.7) H 10/08/18 17:00 PT 20.6 Sec. (12.2-14.9) H 10/11/18 14:25 INR 1.65 (0.87-1.13) H 10/11/18 14:25 APTT 54.9 Sec. (24.2-36.6) H 10/11/18 14:25 Heparin Anti-Xa Level 0.62 U.I./ml (0.3-0.7) 10/11/18 20:53 POC ABG pH 7.514 (7.35-7.45) H 10/12/18 03:56 POC ABG pCO2 31.2 (35-45) L 10/12/18 03:56 POC ABG pO2 103 (80-105) 10/12/18 03:56 POC ABG HCO3 25.1 (22-26 mml/L) 10/12/18 03:56 POC ABG Total CO2 26 (23-27mmol/L) 10/12/18 03:56 POC ABG O2 Sat 99 10/12/18 03:56 POC ABG Base Excess 2 ((-2) - (+3)mmol/L) 10/12/18 03:56 30 % 10/12/18 03:56 Sodium 139 mmol/L (137-145) 10/12/18 04:25 Potassium 4.3 mmol/L (3.6-5.0) 10/12/18 04:25 Chloride 104.6 mmol/L (98-107) 10/12/18 04:25 Carbon Dioxide 26 mmol/L (22-30) 10/12/18 04:25 13 mmol/L 10/12/18 04:25 BUN 16 mg/dL (7-17) 10/12/18 04:25 1.6 mg/dL (0.7-1.2) H 10/12/18 04:25 Estimated GFR 41 ml/min 10/12/18 04:25 10 % 10/12/18 04:25 Glucose 287 mg/dL (65-100) H 10/12/18 04:25 POC Glucose 290 (70-105) H 10/12/18 12:13 10.2 % (4-6) H 10/07/18 22:08 Lactic Acid 1.50 mmol/L (0.7-2.0) 10/08/18 17:09 Calcium 8.0 mg/dL (8.4-10.2) L 10/12/18 04:25 Phosphorus 7.40 mg/dL (2.5-4.5) H 10/07/18 22:08 Magnesium 1.90 mg/dL (1.7-2.3) 10/08/18 04:05 0.20 mg/dL (0.1-1.2) 10/08/18 04:05 < 0.2 mg/dL (0-0.2) 10/07/18 02:43 0.5 mg/dL 10/07/18 02:43 AST 26 units/L (5-40) 10/08/18 04:05 ALT 22 units/L (7-56) 10/08/18 04:05 155 units/L (35-129) H 10/08/18 04:05 40.0 umol/L (25-60) 10/07/18 02:43 < 0.010 ng/mL (0.00-0.029) 10/07/18 08:59 0.20 mg/dL (0.00-1.30) 10/07/18 14:55 NT-Pro-B Natriuret Pep 2865 pg/mL (0-450) H 10/09/18 03:20 5.2 g/dL (6.3-8.2) L D 10/08/18 04:05 2.6 g/dL (3.9-5) L 10/08/18 04:05 1.0 % 10/08/18 04:05 Straw (Yellow) 10/07/18 02:34 Clear (Clear) 10/07/18 02:34 7.0 (5.0-7.0) 10/07/18 02:34 Ur Specific [place] 1.006 (1.003-1.030) 10/07/18 02:34 100 mg/dl mg/dL (Negative) 10/07/18 02:34 Neg mg/dL (Negative) 10/07/18 02:34 Neg mg/dL (Negative) 10/07/18 02:34 Sm (Negative) 10/07/18 02:34 Neg (Negative) 10/07/18 02:34 Neg (Negative) 10/07/18 02:34 < 2.0 mg/dL (<2.0) 10/07/18 02:34 Ur Leukocyte Esterase Tr (Negative) 10/07/18 02:34 1.0 /HPF (0.0-6.0) 10/07/18 02:34 5.0 /HPF (0.0-6.0) 10/07/18 02:34 U Epithel Cells (Auto) 1.0 /HPF (0-13.0) 10/07/18 02:34 Hyaline Casts 3 /LPF 10/07/18 02:34 Few /HPF 10/07/18 02:34 Presumptive negative 10/07/18 02:34 Presumptive negative 10/07/18 02:34 Ur Barbiturates Screen Presumptive negative 10/07/18 02:34 Ur Phencyclidine Scrn Presumptive negative 10/07/18 02:34 Ur Amphetamines Screen Presumptive negative 10/07/18 02:34 U Benzodiazepines Scrn Presumptive negative 10/07/18 02:34 Presumptive negative 10/07/18 02:34 U Marijuana (THC) Screen Presumptive positive 10/07/18 02:34 Disclamer 10/07/18 02:34 Active Medications - Current Medications Current Medications: Generic Name Dose Route Start Last Admin Trade Name Freq PRN Reason Stop Dose Admin Acetaminophen 650 mg 10/07/18 04:59 10/12/18 12:47 Tylenol PO 650 mg Q4H PRN Administration Pain MILD(1-3)/Fever >100.5/RODRIGUEZ Lipase/Protease/Amylase 1 each 10/08/18 10:00 Pancreangelica Arredondo 10,500 Unit FEEDTUBE PRN PRN For Clogged Feeding Tube Dextrose 50 ml 10/07/18 20:42 10/10/18 05:46 D50w (25gm) Syringe IV 50 ml PRN PRN Administration Hypoglycemia Fentanyl 50 mcg 10/07/18 09:07 10/12/18 09:05 Sublimaze IV 50 mcg Q10MIN PRN Administration ANALGESIA Furosemide 40 mg 10/12/18 22:00 Lasix IV 10/14/18 10:01 BID ULI Hydralazine HCl 10 mg 10/07/18 05:07 10/12/18 13:06 Apresoline IV 10 mg Q4H PRN Administration Blood Pressure Hydrophilic Ointment 1 applic 10/07/18 02:40 Vaseline Lip Therapy TP Q2HR PRN Dry Lips Fentanyl Citrate 2,000 mcg in 100 mls @ 3.402 mls/hr 10/07/18 10:00 10/12/18 13:11 Fentanyl Drip Premix IV 2 mcg/kg/hr TITR ULI 6.804 mls/hr Titration Protocol 1 MCG/KG/HR Heparin Sodium/Sodium Chloride 25,000 unit in 500 mls @ 20 mls/hr 10/11/18 15:00 10/11/18 14:58 Heparin/ 0.45% Nacl-25,000 Unit/500 Ml IV 1,000 units/hr TITR ULI 20 mls/hr Administration Protocol 1,000 UNITS/HR Ceftriaxone Sodium 2 gm in 100 mls @ 200 mls/hr 10/11/18 18:30 10/11/18 18:09 Rocephin/Ns 2 Gm/100 Ml IV 10/12/18 23:59 200 mls/hr Q24H ULI Administration Protocol Metronidazole 500 mg in 100 mls @ 100 mls/hr 10/11/18 18:00 10/12/18 09:34 Flagyl 500 Mg/100 Ml IV 10/12/18 23:59 100 mls/hr Q8H ULI Administration Protocol Insulin Glargine 5 units 10/12/18 12:00 10/12/18 12:46 Lantus SUB-Q 5 units DAILY ULI Administration Insulin Human Lispro 0 unit 10/09/18 00:00 10/12/18 12:47 Humalog SUB-Q 3 unit Q6HR [facility] Administration Protocol Lansoprazole 30 mg 10/15/18 10:00 Prevacid Solutab FEEDTUBE QDAY ULI Metoclopramide HCl 10 mg 10/11/18 13:00 Reglan IV Q6HR PRN Nausea And Vomiting Metoprolol Tartrate 25 mg 10/12/18 14:00 10/12/18 13:09 Lopressor PO 25 mg TID ULI Administration Midazolam HCl 2 mg 10/07/18 06:03 10/12/18 04:21 Versed IV 2 mg Q10MIN PRN Administration Sedation Multi-Ingred Cream/Lotion/Oil/Oint 1 applic 10/07/18 02:40 Artificial Tears Ophth Oint OU Q4HR PRN Dry Eye(s) Ondansetron HCl 4 mg 10/07/18 04:59 Zofran IV Q8H PRN N/V unrelieved by Regirene Pantoprazole Sodium 40 mg 10/13/18 10:00 Protonix IV 10/14/18 10:01 QDAY ULI Quetiapine Fumarate 100 mg 10/09/18 22:00 10/11/18 21:19 Seroquel PO 100 mg QHS ULI Administration Simple Syrup 15 ml 10/08/18 10:00 Simple Syrup FEEDTUBE PRN PRN Hypoglycemia Simple Syrup 30 ml 10/08/18 10:00 10/09/18 01:09 Simple Syrup FEEDTUBE 30 ml PRN PRN Administration Hypoglycemia Sodium Bicarbonate 325 mg 10/08/18 10:00 Sodium Bicarbonate FEEDTUBE PRN PRN For Clogged Feeding Tube Sodium Chloride 10 ml 10/07/18 10:00 10/12/18 09:04 Sodium Chloride Flush Syringe 10 Ml IV 10 ml BID ULI Administration Sodium Chloride 10 ml 10/07/18 04:59 Sodium Chloride Flush Syringe 10 Ml IV PRN PRN LINE FLUSH Warfarin Sodium 7.5 mg 10/12/18 17:00 Coumadin PO DAILY@1700 [facility] Nutrition/Malnutrition Assess - Dietary Evaluation Nutrition/Malnutrition Findings: Nutrition Notes Start: 10/07/18 12:17 Freq: Status: Active Protocol: Document 10/12/18 12:50 CP (Rec: 10/12/18 12:53 CP [id number]) Co-Sign 10/12/18 12:50 LP Nutrition Notes Initial or Follow up Brief Note Current Diagnosis Coronary Artery Disease, Diabetes,Sepsis,Hypertension, Respiratory Failure Other Pertinent Diagnosis DKA, AMS Current Diet NPO Labs/Tests Reviewed Pertinent Medications Reviewed Subjective/Other Information F/U for TF at goal rate and Na lab. Pt was vomiting during time of visit (08:50) and the TF was infusing at goal rate. RN was notified and TF is being held as discussed in rounds. Nutrition Intervention Follow-Up By: 10/13/18 Additional Comments Follow for TF to start
--- NOTE | 2018-10-12 15:59 | Progress Note ---
Assessment and Plan Cultures: Blood culture 10/07/2018 no growth today. Sputum culture 10/07/2018 normal resp justa. Assessment: 48 y/o female with history of CAD s/p CABG x 2, mitral valve replacement with mechanical valve on 01/06/2018 at [place] on anticoagulation, CHF, cardiac arrest, diabetes, hypertension, HLP, CKD, previous GI bleed with INR>17 and noncompliance; admitted on 10/07/2018 due to altered mental status/seizures found hypoglycemic: 1. SIRS v/s Sepsis: still tachycardia. Etiology most likely pneumonia +/- seiz ures. CRP 0.2. Blood culture 10/07/2018 no growth today. 2) Seizures: from hypoglycemia 3) RLL pneumonia: likely aspiration. Sputum culture 10/07/2018 normal resp justa. CXR RLL infiltrate and right pleural effusion. She was on zosyn x 3 days. 4) ASHELY on CKD 5) Elevated LFTs from seizures 6) Acute encephalopathy from seizures 7) Diarrhea ? from reglan Recommendations: - continue ceftriaxone and flagyl for aspiration pnumonitis D of 7 - monitor diarrhea and tachycardia - monitor bloody ETT secretions Will follow. Steffanie Sun MD Infectious Diseases Factory Maintenance Manager [facility] ([facility]) M [phone] O [phone] Subjective Date of service: 10/12/18 Principal diagnosis: Ac hypoxemic resp failure; Seizures (?hypoglycemic); Ac encephalopathy(T/M) Interval history: Now on CPAP, somnolent, intubated, HR 120s on monitor. ROS unable to obtain Objective - Exam Narrative Exam: General appearance:lethargic in NAD intubated Eyes: anicteric sclerae, moist conjunctivae; no lid-lag; PERRLA HENT: Atraumatic; oropharynx ETT with blood secretions Neck: Trachea midline; supple, no thyromegaly or lymphadenopathy Lungs: coarse breath sounds gwendolyn CV: RRR, no murmurs Abdomen: Soft, non-tender; no masses or hepatosplenomegaly Extremities: No peripheral edema or extremity lymphadenopathy Skin: Normal temperature, turgor and texture; no rash, ulcers or subcutaneous nodules Psych: lethargic. Neuro: lethargic large diarrhea - Constitutional Vitals: Vital Signs Temp Pulse Resp BP Pulse Ox 99.0 F 108 H 17 119/68 98 10/12/18 04:00 10/12/18 15:00 10/12/18 15:00 10/12/18 15:00 10/12/18 15:00 Temperature -Last 24 Hours Temperature 99.0 F Temperature 99.1 F Temperature 98.9 F Temperature 98.6 F - Labs CBC & Chem 7: 10/11/18 14:25 10/12/18 04:25 Labs: Abnormal lab results 10/11/18 10/11/18 10/12/18 Range/Units 15:41 17:31 00:30 POC ABG pH (7.35-7.45) POC ABG pCO2 (35-45) POC ABG pO2 53 L (80-105) Creatinine (0.7-1.2) mg/dL Glucose (65-100) mg/dL POC Glucose 133 H 353 H (70-105) Calcium (8.4-10.2) mg/dL 10/12/18 10/12/18 10/12/18 Range/Units 03:56 04:25 04:49 POC ABG pH 7.514 H (7.35-7.45) POC ABG pCO2 31.2 L (35-45) POC ABG pO2 (80-105) Creatinine 1.6 H (0.7-1.2) mg/dL Glucose 287 H (65-100) mg/dL POC Glucose 297 H (70-105) Calcium 8.0 L (8.4-10.2) mg/dL 10/12/18 Range/Units 12:13 POC ABG pH (7.35-7.45) POC ABG pCO2 (35-45) POC ABG pO2 (80-105) Creatinine (0.7-1.2) mg/dL Glucose (65-100) mg/dL POC Glucose 290 H (70-105) Calcium (8.4-10.2) mg/dL
[2018-10-12] MEDS: HEPARIN/ 0.45% NACL-25,000 UNIT/500 ML 25,000 UNIT/500 ML BAG IV SCH (16:08)
[2018-10-12] MEDS ORDERED: COUMADIN PO SCH (17:00)
[2018-10-12] MEDS: ROCEPHIN/NS 2 GM/100 ML 2 GM/100 ML BAG IV SCH (17:43)
[2018-10-12 19:19] LABS: Hematocrit 24.2 % (30.3-42.9); Hemoglobin 7.4 gm/dl (10.1-14.3); Mean Corpuscular HGB Conc 31 % (30-34); Mean Corpuscular Volume 79 fl (79-97); Platelet Count 317 K/mm3 (140-440); Red Blood Count 3.08 M/mm3 (3.65-5.03)
[2018-10-12 19:20] LABS: Red Cell Distribution Width 21.5 % (13.2-15.2)
[2018-10-12] MEDS: LASIX IV SCH (21:34)
[2018-10-13] MEDS: HumaLOG SUB-Q SCH ×4 (00:45→17:43)
--- NOTE | 2018-10-13 02:24 | XRay Report ---
PROCEDURE: XR CHEST 1V AP TECHNIQUE: Chest radiograph single view. HISTORY: follow up respiratory failure COMPARISONS: October 12, 2018 . FINDINGS: Heart: Normal. Mediastinum/Vessels: Multiple sternal wires are present. Lungs/Pleural space: Bilateral mild vascular congestion. Moderate right effusion. No pneumothorax. Bony thorax: No acute osseous abnormality. Life support devices: The endotracheal tube ends 2 cm above the geronimo. Nasogastric tube ends below t he hemidiaphragms. Right PICC catheter ends in the SVC. IMPRESSION: Bilateral vascular congestion with moderate right effusion. Endotracheal tube and lines are properly positioned. This document is electronically signed by Tricia Krause DO., Oct 13 2018 02:22:36 AM ET
[2018-10-13] MEDS: fentaNYL DRIP Premix 2,000 MCG/100 ML BAG IV SCH (02:43)
[2018-10-13 05:39] LABS: Basophils # (Auto) 0.1 K/mm3 (0.0-0.1); Basophils % (Auto) 0.5 % (0.0-1.8); Eosinophils # (Auto) 0.4 K/mm3 (0.0-0.4); Eosinophils % (Auto) 3.7 % (0.0-4.3); Hematocrit 23.7 % (30.3-42.9); Hemoglobin 7.4 gm/dl (10.1-14.3); Lymphocytes # (Auto) 1.2 K/mm3 (1.2-5.4); Lymphocytes % (Auto) 9.6 % (13.4-35.0); Mean Corpuscular HGB Conc 31 % (30-34); Mean Corpuscular Volume 79 fl (79-97); Monocytes # (Auto) 1.2 K/mm3 (0.0-0.8); Platelet Count 284 K/mm3 (140-440); Red Blood Count 3.02 M/mm3 (3.65-5.03)
[2018-10-13 05:57] LABS: Calcium 8.3 mg/dL (8.4-10.2)
[2018-10-13 07:25] LABS: INR 1.34 (0.87-1.13)
[2018-10-13] MEDS: LOPRESSOR PO SCH ×3 (08:46→21:27)
--- NOTE | 2018-10-13 08:50 | Progress Note ---
Assessment and Plan Impression * Acute kidney injury * Metabolic acidosis * Hypernatremia * Mechanical aortic valve * Sepsis * Seizure disorder * Transaminitis * Encephalopathy Recommendations * Patient's renal function seems to be stabilizing * He does have underlying chronic kidney disease. Baseline creatinine approximately 1.6. * Patient is currently nonoliguric * Serum sodium slowly rising again. Add free water through her feeding tube * Her acidosis has been corrected . Off bicarbonate drip * Chest x-ray showing right basal infiltrates and some pleural effusion. IV fluid has been discontinued * Echocardiogram showing ejection fraction of 40% with dilated ventricles Subjective Date of service: 10/13/18 Principal diagnosis: Ac hypoxemic resp failure; Seizures (?hypoglycemic); Ac encephalopathy(T/M) Interval history: Patient currently in the ICU. He remains on the ventilator. On 30% FiO2. Currently on heparin drip Objective - Vital Signs Vital signs: Vital Signs - 12hr 10/12/18 10/12/18 10/12/18 21:00 21:30 22:00 Temperature 98.9 F Pulse Rate 103 H 99 H 107 H Pulse Rate [ 102 H From Monitor] Respiratory 12 14 14 Rate Blood Pressure 122/74 132/72 O2 Sat by Pulse 94 97 95 Oximetry 10/12/18 10/12/18 10/12/18 22:01 22:30 22:33 Temperature Pulse Rate 102 H 102 H 102 H Pulse Rate [ From Monitor] Respiratory 14 12 13 Rate Blood Pressure 133/82 141/76 141/76 O2 Sat by Pulse 95 96 97 Oximetry 10/12/18 10/12/18 10/12/18 23:00 23:30 23:31 Temperature Pulse Rate 112 H 110 H 111 H Pulse Rate [ From Monitor] Respiratory 18 14 Rate Blood Pressure 143/68 143/68 119/64 O2 Sat by Pulse 94 92 92 Oximetry 10/12/18 10/13/18 10/13/18 23:46 00:00 00:01 Temperature 99.0 F Pulse Rate 111 H Pulse Rate [ 110 H From Monitor] Respiratory 12 15 Rate Blood Pressure 138/76 O2 Sat by Pulse 96 93 Oximetry 10/13/18 10/13/18 10/13/18 00:30 01:00 01:30 Temperature Pulse Rate 107 H 104 H 106 H Pulse Rate [ From Monitor] Respiratory 13 14 12 Rate Blood Pressure 128/68 128/73 121/79 O2 Sat by Pulse 93 93 93 Oximetry 10/13/18 10/13/18 10/13/18 02:01 02:30 03:01 Temperature Pulse Rate 108 H 109 H 111 H Pulse Rate [ From Monitor] Respiratory 14 13 14 Rate Blood Pressure 131/83 140/75 125/68 O2 Sat by Pulse 94 95 93 Oximetry 10/13/18 10/13/18 10/13/18 03:30 03:31 04:00 Temperature Pulse Rate 107 H 106 H 105 H Pulse Rate [ 105 H From Monitor] Respiratory 13 16 Rate Blood Pressure 132/77 132/77 140/89 O2 Sat by Pulse 95 95 93 Oximetry 10/13/18 10/13/18 10/13/18 04:30 04:35 05:00 Temperature 98.6 F Pulse Rate 108 H 107 H Pulse Rate [ From Monitor] Respiratory 16 14 Rate Blood Pressure 142/79 140/79 O2 Sat by Pulse 94 93 Oximetry 10/13/18 10/13/18 10/13/18 05:30 06:00 06:30 Temperature Pulse Rate 106 H 106 H 107 H Pulse Rate [ From Monitor] Respiratory 14 13 13 Rate Blood Pressure 138/82 120/74 139/75 O2 Sat by Pulse 95 96 98 Oximetry 10/13/18 10/13/18 10/13/18 07:00 07:30 07:32 Temperature 98.3 F Pulse Rate 101 H 95 H Pulse Rate [ From Monitor] Respiratory 12 12 Rate Blood Pressure 134/80 143/80 O2 Sat by Pulse 95 98 Oximetry 10/13/18 10/13/18 10/13/18 08:00 08:01 08:46 Temperature Pulse Rate 107 H 98 H 101 H Pulse Rate [ From Monitor] Respiratory 15 10 L Rate Blood Pressure 139/75 125/76 127/79 O2 Sat by Pulse 98 97 Oximetry - General Appearance General appearance: well-developed, well-nourished, appears stated age, intubated EENT: PERRL, mucous membranes moist Neck: no JVD, no thyromegaly, no carotid bruit, supple Respiratory: Present: Clear to Ascultation Cardiology: regular, normal heart rate, S1S2, no murmurs Gastrointestinal: normal, normoactive bowel sounds Integumentary: no rash, other (trace edema) - Lab 10/13/18 05:25 10/13/18 05:25 Most recent lab results Calcium 8.3 mg/dL (8.4-10.2) L 10/13/18 05:25 Phosphorus 7.40 mg/dL (2.5-4.5) H 10/07/18 22:08 Magnesium 1.90 mg/dL (1.7-2.3) 10/08/18 04:05 Medications & Allergies - Medications Allergies/Adverse Reactions: Allergies No Known Allergies Allergy (Verified 12/03/16 23:01) Home Medications: Home Medications Medication Instructions Recorded Confirmed Last Taken Type Metoprolol [Lopressor TAB] 25 mg PO BID #60 tablet 12/29/16 08/11/18 Unknown Rx Famotidine [Pepcid] 20 mg PO DAILY #30 tablet 02/04/17 08/07/18 Unknown Rx Metoprolol [Lopressor TAB] 50 mg PO TID #90 tablet 02/04/17 08/07/18 Unknown Rx Coumadin 5 mg PO .ASDIR #30 08/13/18 Unknown Rx Ferrous Sulfate [Feosol 325 MG tab] 325 mg PO BID #60 tablet 08/13/18 Unknown Rx Folic Acid [Folvite] 1 mg PO QDAY #30 tablet 08/13/18 Unknown Rx Furosemide [Lasix TAB] 40 mg PO DAILY #30 tablet 08/13/18 08/07/18 Unknown Rx Insulin Glargine [Lantus VIAL] 5 units SUB-Q BIDDIAB 30 Days 08/13/18 Unknown Rx units Multivitamin Tab [Multiple Vitamin 1 each PO QDAY #30 tablet 08/13/18 Unknown Rx TAB (Theragran)] Pantoprazole [Protonix TAB] 40 mg PO DAILY #30 tablet 08/13/18 Unknown Rx Thiamine [Vitamin B-1] 100 mg PO QDAY #30 tablet 08/13/18 Unknown Rx Warfarin [Coumadin] 7.5 mg PO .ASDIR 30 Days tablet 08/13/18 Unknown Rx Active Medications: Generic Name Dose Route Start Last Admin Trade Name Freq PRN Reason Stop Dose Admin Acetaminophen 650 mg 10/07/18 04:59 10/12/18 12:47 Tylenol PO 650 mg Q4H PRN Administration Pain MILD(1-3)/Fever >100.5/RODRIGUEZ Lipase/Protease/Amylase 1 each 10/08/18 10:00 Pancreangelica Arredondo 10,500 Unit FEEDTUBE PRN PRN For Clogged Feeding Tube Dextrose 50 ml 10/07/18 20:42 10/10/18 05:46 D50w (25gm) Syringe IV 50 ml PRN PRN Administration Hypoglycemia Fentanyl 50 mcg 10/07/18 09:07 10/12/18 09:05 Sublimaze IV 50 mcg Q10MIN PRN Administration ANALGESIA Furosemide 40 mg 10/12/18 22:00 10/12/18 21:34 Lasix IV 10/14/18 10:01 40 mg BID ULI Administration Hydralazine HCl 10 mg 10/07/18 05:07 10/12/18 13:06 Apresoline IV 10 mg Q4H PRN Administration Blood Pressure Hydrophilic Ointment 1 applic 10/07/18 02:40 Vaseline Lip Therapy TP Q2HR PRN Dry Lips Fentanyl Citrate 2,000 mcg in 100 mls @ 3.402 mls/hr 10/07/18 10:00 10/13/18 02:43 Fentanyl Drip Premix IV 2 mcg/kg/hr TITR ULI 6.804 mls/hr Administration Protocol 1 MCG/KG/HR Heparin Sodium/Sodium Chloride 25,000 unit in 500 mls @ 20 mls/hr 10/11/18 15:00 10/13/18 01:00 Heparin/ 0.45% Nacl-25,000 Unit/500 Ml IV 850 units/hr TITR ULI 17 mls/hr Titration Protocol 1,000 UNITS/HR Insulin Glargine 5 units 10/12/18 12:00 10/12/18 12:46 Lantus SUB-Q 5 units DAILY ULI Administration Insulin Human Lispro 0 unit 10/09/18 00:00 10/13/18 06:50 Humalog SUB-Q 1 unit Q6HR ULI Administration Protocol Lansoprazole 30 mg 10/15/18 10:00 Prevacid Solutab FEEDTUBE QDAY ULI Metoclopramide HCl 10 mg 10/11/18 13:00 10/12/18 19:32 Reglan IV 10 mg Q6HR PRN Administration Nausea And Vomiting Metoprolol Tartrate 25 mg 10/12/18 14:00 10/13/18 08:46 Lopressor PO 25 mg TID ULI Administration Midazolam HCl 2 mg 10/07/18 06:03 10/12/18 04:21 Versed IV 2 mg Q10MIN PRN Administration Sedation Multi-Ingred Cream/Lotion/Oil/Oint 1 applic 10/07/18 02:40 Artificial Tears Ophth Oint OU Q4HR PRN Dry Eye(s) Ondansetron HCl 4 mg 10/07/18 04:59 Zofran IV Q8H PRN N/V unrelieved by Kojo Pantoprazole Sodium 40 mg 10/13/18 10:00 Protonix IV 10/14/18 10:01 QDAY ULI Quetiapine Fumarate 100 mg 10/09/18 22:00 10/12/18 21:34 Seroquel PO 100 mg QHS ULI Administration Simple Syrup 15 ml 10/08/18 10:00 Simple Syrup FEEDTUBE PRN PRN Hypoglycemia Simple Syrup 30 ml 10/08/18 10:00 10/09/18 01:09 Simple Syrup FEEDTUBE 30 ml PRN PRN Administration Hypoglycemia Sodium Bicarbonate 325 mg 10/08/18 10:00 Sodium Bicarbonate FEEDTUBE PRN PRN For Clogged Feeding Tube Sodium Chloride 10 ml 10/07/18 10:00 10/12/18 22:00 Sodium Chloride Flush Syringe 10 Ml IV 10 ml BID ULI Administration Sodium Chloride 10 ml 10/07/18 04:59 Sodium Chloride Flush Syringe 10 Ml IV PRN PRN LINE FLUSH Warfarin Sodium 10 mg 10/13/18 17:00 Coumadin PO DAILY@1700 [facility]
--- NOTE | 2018-10-13 09:08 | Progress Note ---
Assessment and Plan Acute hypoxemic respiratory failure, on mechanical ventilatory support. Symptomatic hypoglycemia. Seizures, possibly related to the hypoglycemia. Acute encephalopathy, toxic metabolic. Mild Hyponatremia Hyperkalemia s/p CABG with mechanical valve History of cardiomyopathy. (EF 40%) Right pleural effusion with infiltrate- probable aspiration History of diabetes. Hypertension. Coagulopathy that is probably related to her Coumadin use at home Tolerating SBT today. Get weaning parameters, if acceptable will liberate from MVS Once liberated get swallow evaluation, patient has an OGT PT/OT to evaluate ad treat Parameters NIF- 26, RSBI 89. Give an additional dose of furosemide prior to extubation -Wean supplemental oxygen to keep O2 sats 88-90% -PRN ABGs/CXR for now -VAP bundle addressed -Monitor renal indices closely -Avoid nephrotoxic agents, adjust all medications for CrCL -Strict intake and output monitoring -Stress ulcer prophylaxis -VTE prophylaxis- anticoagulated. Has a mechanical valve, on heparin infusion -Aspiration precautions -Accuchecks with glycemic control. Target glucose of 140-180 mg/dL -Bronchodilators with pulmonary hygiene per RT -Maintenance of sleep -wake cycle -Mobility as tolerated by hemodynamics -Influenza and pneumonia vaccination per protocol ..care plan discussed at length with RN/RT at the bedside PROGNOSIS:GUARDED CONDITION: CRITICAL CODE STATUS: FULL CODE The high probability of a clinically significant, sudden or life-threatening deterioration of the [respiratory, neurology, renal, endocrine] system(s) required my full and direct attention, intervention and personal management. The aggregate critical care time was [30] minutes without overlap. Time includes spent on; [x] Data Review and interpretation [x] Patient assessment and monitoring of vital signs [x] Documentation [x] Medication orders and management Subjective Date of service: 10/13/18 Principal diagnosis: Ac hypoxemic resp failure; Seizures (?hypoglycemic); Ac encephalopathy(T/M) Interval history: Patient is seen today for: Acute hypoxemic respiratory failure, on mechanical ventilatory support; Symptomatic hypoglycemia; Seizures, possibly related to the hypoglycemia; Acute encephalopathy, toxic metabolic; Mild Hyponatremia; History of cardiomyopathy. (EF 40%) Seen and examined at bedside; 24hour events reviewed; nursing and respiratory care staff consulted; no adverse overnight events reported to me; no fevers, t olerating tube feedings, on SBT and tolerating it. Objective Vital Signs - 12hr 10/12/18 10/12/18 10/12/18 21:30 22:00 22:01 Temperature Pulse Rate 99 H 107 H 102 H Pulse Rate [ 102 H From Monitor] Respiratory 14 14 14 Rate Blood Pressure 132/72 133/82 O2 Sat by Pulse 97 95 95 Oximetry 10/12/18 10/12/18 10/12/18 22:30 22:33 23:00 Temperature Pulse Rate 102 H 102 H 112 H Pulse Rate [ From Monitor] Respiratory 12 13 18 Rate Blood Pressure 141/76 141/76 143/68 O2 Sat by Pulse 96 97 94 Oximetry 10/12/18 10/12/18 10/12/18 23:30 23:31 23:46 Temperature Pulse Rate 110 H 111 H Pulse Rate [ 110 H From Monitor] Respiratory 14 12 Rate Blood Pressure 143/68 119/64 O2 Sat by Pulse 92 92 96 Oximetry 10/13/18 10/13/18 10/13/18 00:00 00:01 00:30 Temperature 99.0 F Pulse Rate 111 H 107 H Pulse Rate [ From Monitor] Respiratory 15 13 Rate Blood Pressure 138/76 128/68 O2 Sat by Pulse 93 93 Oximetry 10/13/18 10/13/18 10/13/18 01:00 01:30 02:01 Temperature Pulse Rate 104 H 106 H 108 H Pulse Rate [ From Monitor] Respiratory 14 12 14 Rate Blood Pressure 128/73 121/79 131/83 O2 Sat by Pulse 93 93 94 Oximetry 10/13/18 10/13/18 10/13/18 02:30 03:01 03:30 Temperature Pulse Rate 109 H 111 H 107 H Pulse Rate [ From Monitor] Respiratory 13 14 13 Rate Blood Pressure 140/75 125/68 132/77 O2 Sat by Pulse 95 93 95 Oximetry 10/13/18 10/13/18 10/13/18 03:31 04:00 04:30 Temperature Pulse Rate 106 H 105 H 108 H Pulse Rate [ 105 H From Monitor] Respiratory 16 16 Rate Blood Pressure 132/77 140/89 142/79 O2 Sat by Pulse 95 93 94 Oximetry 10/13/18 10/13/18 10/13/18 04:35 05:00 05:30 Temperature 98.6 F Pulse Rate 107 H 106 H Pulse Rate [ From Monitor] Respiratory 14 14 Rate Blood Pressure 140/79 138/82 O2 Sat by Pulse 93 95 Oximetry 10/13/18 10/13/18 10/13/18 06:00 06:30 07:00 Temperature Pulse Rate 106 H 107 H 101 H Pulse Rate [ From Monitor] Respiratory 13 13 12 Rate Blood Pressure 120/74 139/75 134/80 O2 Sat by Pulse 96 98 95 Oximetry 10/13/18 10/13/18 10/13/18 07:30 07:32 08:00 Temperature 98.3 F Pulse Rate 95 H 107 H Pulse Rate [ From Monitor] Respiratory 12 15 Rate Blood Pressure 143/80 139/75 O2 Sat by Pulse 98 98 Oximetry 10/13/18 10/13/18 08:01 08:46 Temperature Pulse Rate 98 H 101 H Pulse Rate [ From Monitor] Respiratory 10 L Rate Blood Pressure 125/76 127/79 O2 Sat by Pulse 97 Oximetry Constitutional: no acute distress, other (middle aged AAF, normocephalic and with mildly increased resp effort at rest) Eyes: non-icteric ENT: oropharynx moist, other (ETT 23 cm CATERINA) Neck: supple, no lymphadenopathy, no JVD Effort: mildly labored Ascultation: Bilateral: diminished breath sounds (bases), rales Percussion: Right: dull (base), Bilateral: not dull Cardiovascular: regular rate and rhythm, other (+ metalic valve click) Gastrointestinal: normoactive bowel sounds, soft, non-tender, non-distended, other (No HSM) Integumentary: normal Extremities: no cyanosis, no edema, pulses normal, no ischemia or petechiae Neurologic: non-focal exam (grossly), pupils equal and round, motor strength normal and, other (somnolent) Psychiatric: other (flat affect) CBC and BMP: 10/13/18 05:25 10/13/18 05:25 ABG, PT/INR, D-dimer: ABG POC ABG pH 7.497 (7.35-7.45) H 10/13/18 04:50 POC ABG pCO2 33.2 (35-45) L 10/13/18 04:50 POC ABG pO2 71 (80-105) L 10/13/18 04:50 POC ABG HCO3 25.7 (22-26 mml/L) 10/13/18 04:50 POC ABG Total CO2 27 (23-27mmol/L) 10/13/18 04:50 POC ABG O2 Sat 95 10/13/18 04:50 PT/INR, D-dimer PT 17.4 Sec. (12.2-14.9) H 10/13/18 06:45 INR 1.34 (0.87-1.13) H 10/13/18 06:45 Abnormal lab findings: Abnormal Labs 10/07/18 10/07/18 10/07/18 02:20 02:43 02:43 WBC RBC Hgb Hct MCH 25 L RDW 21.5 H Lymph % (Auto) Page % (Auto) Lymph # 0.9 L Page # Seg Neutrophils % 78.4 H Seg Neutrophils # PT INR APTT Heparin Anti-Xa Level POC ABG pH POC ABG pCO2 POC ABG pO2 Sodium Potassium Chloride 108.0 H Carbon Dioxide 21 L BUN Creatinine 1.5 H Glucose 115 H POC Glucose 136 H Hemoglobin A1c Lactic Acid Calcium Phosphorus AST 51 H Alkaline Phosphatase 257 H NT-Pro-B Natriuret Pep Total Protein Albumin 10/07/18 10/07/18 10/07/18 02:43 04:32 05:12 WBC RBC Hgb Hct MCH RDW Lymph % (Auto) Page % (Auto) Lymph # Page # Seg Neutrophils % Seg Neutrophils # PT 25.4 H INR 2.14 H APTT Heparin Anti-Xa Level POC ABG pH POC ABG pCO2 33.6 L POC ABG pO2 69 L Sodium Potassium Chloride Carbon Dioxide BUN Creatinine Glucose POC Glucose Hemoglobin A1c Lactic Acid 2.40 H* Calcium Phosphorus AST Alkaline Phosphatase NT-Pro-B Natriuret Pep Total Protein Albumin 10/07/18 10/07/18 10/07/18 06:28 18:39 20:26 WBC RBC Hgb Hct MCH RDW Lymph % (Auto) Page % (Auto) Lymph # Page # Seg Neutrophils % Seg Neutrophils # PT INR APTT Heparin Anti-Xa Level POC ABG pH POC ABG pCO2 POC ABG pO2 Sodium Potassium Chloride Carbon Dioxide BUN Creatinine Glucose POC Glucose 164 H 440 H > 500 H Hemoglobin A1c Lactic Acid Calcium Phosphorus AST Alkaline Phosphatase NT-Pro-B Natriuret Pep Total Protein Albumin 10/07/18 10/07/18 10/07/18 20:28 21:53 22:08 WBC RBC Hgb Hct MCH RDW Lymph % (Auto) Page % (Auto) Lymph # Page # Seg Neutrophils % Seg Neutrophils # PT INR APTT Heparin Anti-Xa Level POC ABG pH POC ABG pCO2 POC ABG pO2 Sodium 136 L D Potassium 6.4 H* D Chloride Carbon Dioxide 10 L D BUN 30 H Creatinine 2.0 H Glucose 544 H* POC Glucose 483 H > 500 H Hemoglobin A1c Lactic Acid Calcium 7.0 L D Phosphorus AST Alkaline Phosphatase NT-Pro-B Natriuret Pep Total Protein Albumin 10/07/18 10/07/18 10/07/18 22:08 22:08 22:56 WBC RBC Hgb Hct MCH RDW Lymph % (Auto) Page % (Auto) Lymph # Page # Seg Neutrophils % Seg Neutrophils # PT INR APTT Heparin Anti-Xa Level POC ABG pH POC ABG pCO2 POC ABG pO2 Sodium Potassium Chloride Carbon Dioxide BUN Creatinine Glucose POC Glucose 462 H Hemoglobin A1c 10.2 H Lactic Acid Calcium Phosphorus 7.40 H AST Alkaline Phosphatase NT-Pro-B Natriuret Pep Total Protein Albumin 10/07/18 10/08/18 10/08/18 23:39 00:58 02:09 WBC RBC Hgb Hct MCH RDW Lymph % (Auto) Page % (Auto) Lymph # Page # Seg Neutrophils % Seg Neutrophils # PT INR APTT Heparin Anti-Xa Level POC ABG pH POC ABG pCO2 POC ABG pO2 Sodium Potassium Chloride Carbon Dioxide BUN Creatinine Glucose POC Glucose 396 H 375 H 285 H Hemoglobin A1c Lactic Acid Calcium Phosphorus AST Alkaline Phosphatase NT-Pro-B Natriuret Pep Total Protein Albumin 10/08/18 10/08/18 10/08/18 03:10 03:33 04:05 WBC RBC Hgb Hct MCH RDW Lymph % (Auto) Page % (Auto) Lymph # Page # Seg Neutrophils % Seg Neutrophils # PT INR APTT Heparin Anti-Xa Level POC ABG pH 7.243 L POC ABG pCO2 33.8 L POC ABG pO2 126 H Sodium Potassium 5.3 H Chloride 110.7 H Carbon Dioxide 14 L BUN 33 H Creatinine 2.2 H Glucose 193 H POC Glucose 251 H Hemoglobin A1c Lactic Acid Calcium 7.0 L Phosphorus AST Alkaline Phosphatase 155 H NT-Pro-B Natriuret Pep Total Protein 5.2 L D Albumin 2.6 L 10/08/18 10/08/18 10/08/18 04:05 04:05 04:09 WBC 11.8 H RBC 3.32 L Hgb 8.3 L Hct 27.5 L D MCH 25 L RDW 22.0 H Lymph % (Auto) 6.8 L Page % (Auto) 12.0 H Lymph # 0.8 L Page # 1.4 H Seg Neutrophils % 80.6 H Seg Neutrophils # 9.5 H PT INR APTT Heparin Anti-Xa Level POC ABG pH POC ABG pCO2 POC ABG pO2 Sodium Potassium Chloride Carbon Dioxide BUN Creatinine Glucose POC Glucose 175 H Hemoglobin A1c Lactic Acid 3.70 H* Calcium Phosphorus AST Alkaline Phosphatase NT-Pro-B Natriuret Pep Total Protein Albumin 10/08/18 10/08/18 10/08/18 05:07 06:05 07:14 WBC RBC Hgb Hct MCH RDW Lymph % (Auto) Page % (Auto) Lymph # Page # Seg Neutrophils % Seg Neutrophils # PT INR APTT Heparin Anti-Xa Level POC ABG pH POC ABG pCO2 POC ABG pO2 Sodium Potassium Chloride Carbon Dioxide BUN Creatinine Glucose POC Glucose 125 H 122 H 147 H Hemoglobin A1c Lactic Acid Calcium Phosphorus AST Alkaline Phosphatase NT-Pro-B Natriuret Pep Total Protein Albumin 10/08/18 10/08/18 10/08/18 07:22 08:09 08:47 WBC RBC Hgb Hct MCH RDW Lymph % (Auto) Page % (Auto) Lymph # Page # Seg Neutrophils % Seg Neutrophils # PT INR APTT Heparin Anti-Xa Level POC ABG pH POC ABG pCO2 POC ABG pO2 Sodium Potassium 5.2 H Chloride 112.4 H Carbon Dioxide 17 L BUN 32 H Creatinine 2.1 H Glucose 148 H POC Glucose 134 H 148 H Hemoglobin A1c Lactic Acid Calcium 6.6 L Phosphorus AST Alkaline Phosphatase NT-Pro-B Natriuret Pep Total Protein Albumin 10/08/18 10/08/18 10/08/18 10:21 13:29 14:21 WBC RBC Hgb Hct MCH RDW Lymph % (Auto) Page % (Auto) Lymph # Page # Seg Neutrophils % Seg Neutrophils # PT INR APTT Heparin Anti-Xa Level POC ABG pH POC ABG pCO2 POC ABG pO2 Sodium Potassium Chloride Carbon Dioxide BUN Creatinine Glucose POC Glucose 115 H 109 H 118 H Hemoglobin A1c Lactic Acid Calcium Phosphorus AST Alkaline Phosphatase NT-Pro-B Natriuret Pep Total Protein Albumin 10/08/18 10/08/18 10/08/18 15:27 17:00 17:00 WBC 11.3 H RBC 3.21 L Hgb 7.9 L Hct 25.7 L MCH 25 L RDW 21.8 H Lymph % (Auto) 8.5 L Page % (Auto) 7.7 H Lymph # 1.0 L Page # 0.9 H Seg Neutrophils % 82.8 H Seg Neutrophils # 9.3 H PT INR APTT Heparin Anti-Xa Level POC ABG pH POC ABG pCO2 POC ABG pO2 Sodium Potassium Chloride Carbon Dioxide BUN Creatinine Glucose POC Glucose 129 H Hemoglobin A1c Lactic Acid Calcium Phosphorus AST Alkaline Phosphatase NT-Pro-B Natriuret Pep 3097 H Total Protein Albumin 10/08/18 10/08/18 10/08/18 17:07 17:12 18:22 WBC RBC Hgb Hct MCH RDW Lymph % (Auto) Page % (Auto) Lymph # Page # Seg Neutrophils % Seg Neutrophils # PT INR APTT Heparin Anti-Xa Level POC ABG pH 7.337 L POC ABG pCO2 32.0 L POC ABG pO2 130 H Sodium Potassium Chloride 115.5 H Carbon Dioxide 17 L BUN 30 H Creatinine 1.9 H Glucose 103 H POC Glucose 119 H Hemoglobin A1c Lactic Acid Calcium 6.9 L Phosphorus AST Alkaline Phosphatase NT-Pro-B Natriuret Pep Total Protein Albumin 10/08/18 10/08/18 10/09/18 20:09 20:57 01:10 WBC RBC Hgb Hct MCH RDW Lymph % (Auto) Page % (Auto) Lymph # Page # Seg Neutrophils % Seg Neutrophils # PT INR APTT Heparin Anti-Xa Level POC ABG pH POC ABG pCO2 POC ABG pO2 Sodium Potassium Chloride 114.3 H 113.7 H Carbon Dioxide 15 L 14 L BUN 29 H 29 H Creatinine 2.1 H 2.0 H Glucose 132 H 39 L* POC Glucose 150 H Hemoglobin A1c Lactic Acid Calcium 6.7 L 6.9 L Phosphorus AST Alkaline Phosphatase NT-Pro-B Natriuret Pep Total Protein Albumin 10/09/18 10/09/18 10/09/18 01:10 01:43 03:20 WBC RBC Hgb Hct MCH RDW Lymph % (Auto) Page % (Auto) Lymph # Page # Seg Neutrophils % Seg Neutrophils # PT INR APTT Heparin Anti-Xa Level POC ABG pH POC ABG pCO2 POC ABG pO2 Sodium Potassium Chloride Carbon Dioxide BUN Creatinine Glucose POC Glucose < 40 L < 40 L Hemoglobin A1c Lactic Acid Calcium Phosphorus AST Alkaline Phosphatase NT-Pro-B Natriuret Pep 2865 H Total Protein Albumin 10/09/18 10/09/18 10/09/18 04:23 05:03 05:25 WBC RBC Hgb Hct MCH RDW Lymph % (Auto) Page % (Auto) Lymph # Page # Seg Neutrophils % Seg Neutrophils # PT INR APTT Heparin Anti-Xa Level POC ABG pH POC ABG pCO2 30.6 L 32.3 L POC ABG pO2 118 H Sodium Potassium Chloride Carbon Dioxide BUN Creatinine Glucose POC Glucose 148 H Hemoglobin A1c Lactic Acid Calcium Phosphorus AST Alkaline Phosphatase NT-Pro-B Natriuret Pep Total Protein Albumin 10/09/18 10/09/18 10/09/18 06:00 08:34 09:58 WBC RBC Hgb Hct MCH RDW Lymph % (Auto) Page % (Auto) Lymph # Page # Seg Neutrophils % Seg Neutrophils # PT INR APTT Heparin Anti-Xa Level POC ABG pH POC ABG pCO2 POC ABG pO2 Sodium Potassium Chloride Carbon Dioxide BUN Creatinine Glucose POC Glucose 173 H 196 H 183 H Hemoglobin A1c Lactic Acid Calcium Phosphorus AST Alkaline Phosphatase NT-Pro-B Natriuret Pep Total Protein Albumin 10/09/18 10/09/18 10/09/18 12:25 12:46 18:16 WBC RBC Hgb Hct MCH RDW Lymph % (Auto) Page % (Auto) Lymph # Page # Seg Neutrophils % Seg Neutrophils # PT INR APTT Heparin Anti-Xa Level POC ABG pH POC ABG pCO2 POC ABG pO2 Sodium Potassium Chloride 110.3 H Carbon Dioxide 16 L BUN 24 H Creatinine 1.8 H Glucose 207 H POC Glucose 208 H 177 H Hemoglobin A1c Lactic Acid Calcium 6.9 L Phosphorus AST Alkaline Phosphatase NT-Pro-B Natriuret Pep Total Protein Albumin 10/09/18 10/10/18 10/10/18 21:11 00:11 05:41 WBC RBC Hgb Hct MCH RDW Lymph % (Auto) Page % (Auto) Lymph # Page # Seg Neutrophils % Seg Neutrophils # PT INR APTT Heparin Anti-Xa Level POC ABG pH POC ABG pCO2 POC ABG pO2 Sodium Potassium Chloride Carbon Dioxide BUN Creatinine Glucose POC Glucose 124 H 156 H 42 L Hemoglobin A1c Lactic Acid Calcium Phosphorus AST Alkaline Phosphatase NT-Pro-B Natriuret Pep Total Protein Albumin 10/10/18 10/10/18 10/10/18 05:45 07:28 12:07 WBC RBC Hgb Hct MCH RDW Lymph % (Auto) Page % (Auto) Lymph # Page # Seg Neutrophils % Seg Neutrophils # PT INR APTT Heparin Anti-Xa Level POC ABG pH POC ABG pCO2 POC ABG pO2 Sodium 146 H D Potassium Chloride 111.2 H Carbon Dioxide BUN 21 H Creatinine 1.8 H Glucose 44 L POC Glucose 114 H 49 L Hemoglobin A1c Lactic Acid Calcium 7.4 L Phosphorus AST Alkaline Phosphatase NT-Pro-B Natriuret Pep Total Protein Albumin 10/10/18 10/10/18 10/10/18 12:37 18:02 20:47 WBC RBC Hgb Hct MCH RDW Lymph % (Auto) Page % (Auto) Lymph # Page # Seg Neutrophils % Seg Neutrophils # PT INR APTT Heparin Anti-Xa Level POC ABG pH POC ABG pCO2 POC ABG pO2 Sodium Potassium Chloride Carbon Dioxide BUN Creatinine Glucose POC Glucose 142 H 49 L 162 H Hemoglobin A1c Lactic Acid Calcium Phosphorus AST Alkaline Phosphatase NT-Pro-B Natriuret Pep Total Protein Albumin 10/10/18 10/10/18 10/10/18 21:45 22:19 23:50 WBC RBC Hgb Hct MCH RDW Lymph % (Auto) Page % (Auto) Lymph # Page # Seg Neutrophils % Seg Neutrophils # PT INR APTT Heparin Anti-Xa Level POC ABG pH 7.334 L POC ABG pCO2 47.0 H POC ABG pO2 53 L 79 L Sodium Potassium Chloride Carbon Dioxide BUN Creatinine Glucose POC Glucose 185 H Hemoglobin A1c Lactic Acid Calcium Phosphorus AST Alkaline Phosphatase NT-Pro-B Natriuret Pep Total Protein Albumin 10/11/18 10/11/18 10/11/18 05:00 06:41 07:17 WBC RBC Hgb Hct MCH RDW Lymph % (Auto) Page % (Auto) Lymph # Page # Seg Neutrophils % Seg Neutrophils # PT INR APTT Heparin Anti-Xa Level POC ABG pH POC ABG pCO2 POC ABG pO2 Sodium Potassium Chloride Carbon Dioxide BUN Creatinine 1.7 H Glucose 43 L POC Glucose 48 L 129 H Hemoglobin A1c Lactic Acid Calcium 7.7 L Phosphorus AST Alkaline Phosphatase NT-Pro-B Natriuret Pep Total Protein Albumin 10/11/18 10/11/18 10/11/18 11:14 13:32 14:25 WBC RBC 3.32 L Hgb 8.2 L Hct 26.4 L MCH 25 L RDW 21.6 H Lymph % (Auto) Page % (Auto) Lymph # Page # Seg Neutrophils % Seg Neutrophils # PT 21.7 H INR 1.76 H APTT 50.5 H Heparin Anti-Xa Level POC ABG pH POC ABG pCO2 POC ABG pO2 Sodium Potassium Chloride Carbon Dioxide BUN Creatinine Glucose POC Glucose 138 H Hemoglobin A1c Lactic Acid Calcium Phosphorus AST Alkaline Phosphatase NT-Pro-B Natriuret Pep Total Protein Albumin 10/11/18 10/11/18 10/11/18 14:25 15:41 17:31 WBC RBC Hgb Hct MCH RDW Lymph % (Auto) Page % (Auto) Lymph # Page # Seg Neutrophils % Seg Neutrophils # PT 20.6 H INR 1.65 H APTT 54.9 H Heparin Anti-Xa Level POC ABG pH POC ABG pCO2 POC ABG pO2 53 L Sodium Potassium Chloride Carbon Dioxide BUN Creatinine Glucose POC Glucose 133 H Hemoglobin A1c Lactic Acid Calcium Phosphorus AST Alkaline Phosphatase NT-Pro-B Natriuret Pep Total Protein Albumin 10/12/18 10/12/18 10/12/18 00:30 03:56 04:25 WBC RBC Hgb Hct MCH RDW Lymph % (Auto) Page % (Auto) Lymph # Page # Seg Neutrophils % Seg Neutrophils # PT INR APTT Heparin Anti-Xa Level POC ABG pH 7.514 H POC ABG pCO2 31.2 L POC ABG pO2 Sodium Potassium Chloride Carbon Dioxide BUN Creatinine 1.6 H Glucose 287 H POC Glucose 353 H Hemoglobin A1c Lactic Acid Calcium 8.0 L Phosphorus AST Alkaline Phosphatase NT-Pro-B Natriuret Pep Total Protein Albumin 10/12/18 10/12/18 10/12/18 04:49 12:13 17:53 WBC RBC Hgb Hct MCH RDW Lymph % (Auto) Page % (Auto) Lymph # Page # Seg Neutrophils % Seg Neutrophils # PT INR APTT Heparin Anti-Xa Level POC ABG pH POC ABG pCO2 POC ABG pO2 Sodium Potassium Chloride Carbon Dioxide BUN Creatinine Glucose POC Glucose 297 H 290 H 211 H Hemoglobin A1c Lactic Acid Calcium Phosphorus AST Alkaline Phosphatase NT-Pro-B Natriuret Pep Total Protein Albumin 10/12/18 10/12/18 10/13/18 18:57 21:35 04:50 WBC 11.8 H RBC 3.08 L Hgb 7.4 L Hct 24.2 L MCH 24 L RDW 21.5 H Lymph % (Auto) Page % (Auto) Lymph # Page # Seg Neutrophils % Seg Neutrophils # PT INR APTT Heparin Anti-Xa Level 1.74 H POC ABG pH 7.497 H POC ABG pCO2 33.2 L POC ABG pO2 71 L Sodium Potassium Chloride Carbon Dioxide BUN Creatinine Glucose POC Glucose Hemoglobin A1c Lactic Acid Calcium Phosphorus AST Alkaline Phosphatase NT-Pro-B Natriuret Pep Total Protein Albumin 10/13/18 10/13/18 10/13/18 05:25 05:25 05:37 WBC 12.1 H RBC 3.02 L Hgb 7.4 L Hct 23.7 L MCH 25 L RDW 21.0 H Lymph % (Auto) 9.6 L Page % (Auto) 10.0 H Lymph # Page # 1.2 H Seg Neutrophils % 76.2 H Seg Neutrophils # 9.2 H PT INR APTT Heparin Anti-Xa Level POC ABG pH POC ABG pCO2 POC ABG pO2 Sodium Potassium Chloride Carbon Dioxide BUN Creatinine 1.6 H Glucose 175 H POC Glucose 165 H Hemoglobin A1c Lactic Acid Calcium 8.3 L Phosphorus AST Alkaline Phosphatase NT-Pro-B Natriuret Pep Total Protein Albumin 10/13/18 06:45 WBC RBC Hgb Hct MCH RDW Lymph % (Auto) Page % (Auto) Lymph # Page # Seg Neutrophils % Seg Neutrophils # PT 17.4 H INR 1.34 H APTT Heparin Anti-Xa Level POC ABG pH POC ABG pCO2 POC ABG pO2 Sodium Potassium Chloride Carbon Dioxide BUN Creatinine Glucose POC Glucose Hemoglobin A1c Lactic Acid Calcium Phosphorus AST Alkaline Phosphatase NT-Pro-B Natriuret Pep Total Protein Albumin Allied health notes reviewed: nursing
[2018-10-13] MEDS: LASIX IV SCH ×2 (09:34→21:27)
[2018-10-13] MEDS: LANTUS SUB-Q SCH (09:34)
[2018-10-13] MEDS: PROTONIX IV SCH (09:34)
[2018-10-13] MEDS: SODIUM CHLORIDE FLUSH SYRINGE 10 ML IV SCH ×2 (09:44→21:28)
--- NOTE | 2018-10-13 10:53 | Progress Note ---
Assessment and Plan Echo reviewed - EF 35-40%, mod LVH, abnormal diastolic function, LA severely dilated, mechanical MV appears well seated with normal function, mod pulm HTN. Cont present cardiac management, including BID IV lasix, lopressor, heparin gtt and coumadin with tx INR 2.5-3.5. Consider addition of ACEI/ARB if renal function permits. The patient has been seen in conjunction with Dr. Megan Mora who agrees with the assessment and plan of care. - Patient Problems (1) Altered mental status Current Visit: Yes Status: Acute (2) Seizures Current Visit: Yes Status: Suspected (3) Hypoglycemia Current Visit: Yes Status: Acute (4) Acute respiratory failure Current Visit: Yes Status: Acute (5) Pneumonia Current Visit: Yes Status: Acute Qualifiers: Pneumonia type: due to unspecified organism Laterality: right Lung location: middle lobe of lung Qualified Code(s): J18.1 - Lobar pneumonia, unspecified organism (6) Sepsis Current Visit: Yes Status: Suspected Qualifiers: Sepsis type: sepsis due to unspecified organism Qualified Code(s): A41.9 - Sepsis, unspecified organism (7) CAD (coronary artery disease) Current Visit: Yes Status: Chronic (8) History of coronary artery bypass graft Current Visit: Yes Status: Chronic (9) H/O mitral valve replacement with mechanical valve Current Visit: Yes Status: Chronic (10) Heart failure with reduced ejection fraction Current Visit: Yes Status: Acute (11) Acute on chronic renal failure Current Visit: Yes Status: Acute (12) Anemia Current Visit: Yes Status: Chronic (13) History of GI bleed Current Visit: Yes Status: Chronic (14) Diabetes Current Visit: Yes Status: Chronic Subjective Date of service: 10/13/18 Principal diagnosis: Ac hypoxemic resp failure; Seizures (?hypoglycemic); Ac encephalopathy(T/M) Interval history: pt remains intubated, eyes open. heparin gtt infusing. Objective Last Vital Signs Temp 98.3 F 10/13/18 07:32 Pulse 114 H 10/13/18 09:00 Resp 12 10/13/18 09:00 BP 127/79 10/13/18 09:00 Pulse Ox 93 10/13/18 09:00 - Physical Examination General: Other (intubated, eyes open) Neck: Positive: neck supple Cardiac: Positive: Reg Rate and Rhythm, S1/S2 Lungs: Positive: Decreased Breath Sounds Neuro: Positive: Other (intubated, eyes open) Abdomen: Negative: Tender Skin: Negative: Rash Extremities: Present: edema (generalized ) - Labs and Meds Coagulation 10/13/18 Range/Units 06:45 PT 17.4 H (12.2-14.9) Sec. INR 1.34 H (0.87-1.13) CBC 10/12/18 10/13/18 Range/Units 18:57 05:25 WBC 11.8 H 12.1 H (4.5-11.0) K/mm3 RBC 3.08 L 3.02 L (3.65-5.03) M/mm3 Hgb 7.4 L 7.4 L (10.1-14.3) gm/dl Hct 24.2 L 23.7 L (30.3-42.9) % Plt Count 317 284 (140-440) K/mm3 Lymph # 1.2 (1.2-5.4) K/mm3 Boyd # 1.2 H (0.0-0.8) K/mm3 Eos # 0.4 (0.0-0.4) K/mm3 Baso # 0.1 (0.0-0.1) K/mm3 Comprehensive Metabolic Panel 10/13/18 Range/Units 05:25 Sodium 143 (137-145) mmol/L Potassium 4.2 (3.6-5.0) mmol/L Chloride 105.4 (98-107) mmol/L Carbon Dioxide 26 (22-30) mmol/L BUN 15 (7-17) mg/dL Creatinine 1.6 H (0.7-1.2) mg/dL Glucose 175 H (65-100) mg/dL Calcium 8.3 L (8.4-10.2) mg/dL - Imaging and Cardiology EKG: report reviewed, image reviewed Echo: report reviewed (07/2018: EF 40%, mild to mod LVH, LA and RA dilated, mod TR and GA, mechanical valve in mitral position that appears to be functioning properly. 11/2016 showed EF 40-45%, abnormal diastolic function, trace MR, mild TR, RVSP 36mmHg. ) - Telemetry EKG Rhythm: Sinus Rhythm - EKG Sinus rhythms and dysrhythmias: sinus rhythm Chamber hypertrophy or enlargement: left ventricular hypertro - Allied health notes Allied health notes reviewed: nursing
[2018-10-13] MEDS ORDERED: LASIX IV ONE (11:11)
[2018-10-13] MEDS: APRESOLINE IV PRN (13:06)
--- NOTE | 2018-10-13 14:07 | Gastroenterology Progress Note ---
Assessment and Plan 1.drop in H/H/anemia (chronic) -H/H stable -continue to monitor H/H and transfuse as needed -no active sign of bleeding overnight or this am -last EGD 08/05/2018 showed gastritis with mild self-limited oozing of blood but no high risk bleeding lesions -etiology-anemia likely multifactorial -no plan for scope at this time unless overt signs of bleeding develop given no significant clinical evidence of GI bleeding (patient critically ill in ICU with multiple co-morbidities) -continue anticoagulation as recommended per cardiology -monitor and hold for active signs of bleeding -continue PPI and supportive care -electrolyte management per primary team -no further GI recommendations at this time -will sign off, please call if needed 2.PNA, severe sepsis with organ dysfunction 3.acute respiratory failure 5.acute on chronic systolic CHF 6.DM 7.ASHELY upon CKD 8.AMS 9.CAD (s/p CABG) 10.H/O mitral valve replacement with mechanical valve Subjective Date of service: 10/13/18 Principal diagnosis: GI bleed Interval history: Patient remains in ICU but now extubated on heparin drip. No active signs of bleeding overnight or this am per nursing. Objective - Constitutional Vitals: Temp Pulse Resp BP Pulse Ox 99 F 129 H 22 187/91 94 10/13/18 12:00 10/13/18 14:02 10/13/18 14:01 10/13/18 14:02 10/13/18 14:01 General appearance: no acute distress - Respiratory Respiratory: bilateral: diminished - Cardiovascular Rhythm: other (tachycardia) - Gastrointestinal General gastrointestinal: Present: soft, non-tender, non-distended, normal bowel sounds - Labs CBC & Chem 7: 10/13/18 05:25 10/13/18 05:25 Labs: Laboratory Results - last 24 hr 10/12/18 10/12/18 10/12/18 17:53 18:57 21:35 WBC 11.8 H RBC 3.08 L Hgb 7.4 L Hct 24.2 L MCV 79 MCH 24 L MCHC 31 RDW 21.5 H Plt Count 317 Lymph % (Auto) [place] % (Auto) Eos % (Auto) Baso % (Auto) Lymph # [place] # Eos # Baso # Seg Neutrophils % Seg Neutrophils # PT INR Heparin Anti-Xa Level 1.74 H POC ABG pH POC ABG pCO2 POC ABG pO2 POC ABG HCO3 POC ABG Total CO2 POC ABG O2 Sat POC ABG Base Excess FiO2 Sodium Potassium Chloride Carbon Dioxide Anion Gap BUN Creatinine Estimated GFR BUN/Creatinine Ratio Glucose POC Glucose 211 H Calcium 10/12/18 10/13/18 10/13/18 23:10 04:50 05:25 WBC RBC Hgb Hct MCV MCH MCHC RDW Plt Count Lymph % (Auto) [place] % (Auto) Eos % (Auto) Baso % (Auto) Lymph # [place] # Eos # Baso # Seg Neutrophils % Seg Neutrophils # PT INR Heparin Anti-Xa Level POC ABG pH 7.497 H POC ABG pCO2 33.2 L POC ABG pO2 71 L POC ABG HCO3 25.7 POC ABG Total CO2 27 POC ABG O2 Sat 95 POC ABG Base Excess 2 FiO2 30 Sodium 143 Potassium 4.2 Chloride 105.4 Carbon Dioxide 26 Anion Gap 16 BUN 15 Creatinine 1.6 H Estimated GFR 41 BUN/Creatinine Ratio 9 Glucose 175 H POC Glucose 78 Calcium 8.3 L 10/13/18 10/13/18 10/13/18 05:25 05:37 06:45 WBC 12.1 H RBC 3.02 L Hgb 7.4 L Hct 23.7 L MCV 79 MCH 25 L MCHC 31 RDW 21.0 H Plt Count 284 Lymph % (Auto) 9.6 L [place] % (Auto) 10.0 H Eos % (Auto) 3.7 Baso % (Auto) 0.5 Lymph # 1.2 [place] # 1.2 H Eos # 0.4 Baso # 0.1 Seg Neutrophils % 76.2 H Seg Neutrophils # 9.2 H PT 17.4 H INR 1.34 H Heparin Anti-Xa Level 0.50 POC ABG pH POC ABG pCO2 POC ABG pO2 POC ABG HCO3 POC ABG Total CO2 POC ABG O2 Sat POC ABG Base Excess FiO2 Sodium Potassium Chloride Carbon Dioxide Anion Gap BUN Creatinine Estimated GFR BUN/Creatinine Ratio Glucose POC Glucose 165 H Calcium 10/13/18 10/13/18 09:41 11:12 WBC RBC Hgb Hct MCV MCH MCHC RDW Plt Count Lymph % (Auto) [place] % (Auto) Eos % (Auto) Baso % (Auto) Lymph # [place] # Eos # Baso # Seg Neutrophils % Seg Neutrophils # PT INR Heparin Anti-Xa Level POC ABG pH 7.426 POC ABG pCO2 37.2 POC ABG pO2 POC ABG HCO3 24.4 POC ABG Total CO2 26 POC ABG O2 Sat 70 POC ABG Base Excess 0 FiO2 30 Sodium Potassium Chloride Carbon Dioxide Anion Gap BUN Creatinine Estimated GFR BUN/Creatinine Ratio Glucose POC Glucose 223 H Calcium
--- NOTE | 2018-10-13 14:22 | Progress Note ---
Assessment and Plan Assessment and plan: 48 year old woman with history of coronary artery disease, status post cabbage, diabetes, hypertension who was brought to the emergency room for altered mental status. She was found to have hypoglycemia, she was also having convulsions at the time of admission. The patient was intubated, sp dextrose she was put on the ventilator she was found to have pneumonia and CHF flare and started on antibiotics. patient has history of MV replacement and was on anticoagulation. Pneumonia, severe sepsis - Patient was on IV antibiotics and discontinued yesterday per - Chest x-ray right lower lobe infiltrates, right pleural effusion - Lactic acid is improving Acute respiratory failure Was intubated and on mechanical ventilation - Patient was off sedation, alert and oriented - On SBT status epilepticus; Seizures when most likely due to hypoglycemia -Treated with dextrose -EEG, neurology consult appreciated Acute on chronic systolic CHF EF 40%, dilated ventricles - on bumex, optimize meds, cardiology consult History of mitral valve replacement - patient is on heparin and warfarin - will follow INR - Cardiology is on board 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, treated as type 1, uncontrolled, a1c 10.2 Continue insulins, brittle DM with episodes of hypoglycemia and hyperglycemia, labile glc Mazin upon ckd stage 3, vasomotor nephropathy and likely ATN from sepsis Nephrology input appreciated, avoid nephrotoxins, improving hypernatremia resolved after she received hypotonic ivf Hyperkalemia Improving with insulin and diuretics htn urgency; optimize bp meds Marijuana abuse dvt ppx- heparin Acute respiratory failure mechanical ventilator greater than 96 hours The high probability of a clinically significant, sudden or life threatening deterioration of the [respiratory, neurology, cardiology] system(s) required my full and direct attention, intervention and personal management. The aggregate critical care time was [34] minutes. This time is in addition to time spent performing reported procedures but includes the following: [x] Data Review and interpretation [x] Patient assessment and monitoring of vital signs [x] Documentation [x] Medication orders and management History Interval history: Patient was seen and evaluated this morning, patient was intubated and alert and oriented. Hospitalist Physical - Physical exam Narrative exam: Patient is intubated and alert The patient appeared well nourished and normally developed. Vital signs as documented. Head exam is unremarkable. No scleral icterus . Neck is without jugular venous distension, thyromegaly, or carotid bruits. Lungs are clear to auscultation. Cardiac exam reveals regular rate and Rhythm. Abdominal exam reveals normal bowel sounds Extremities are nonedematous. BATCH DUMPER:alert and oriented. - Constitutional Vitals: Temp Pulse Resp BP Pulse Ox 99 F 129 H 22 187/91 94 10/13/18 12:00 10/13/18 14:02 10/13/18 14:01 10/13/18 14:02 10/13/18 14:01 General appearance: Present: other (intubated, eyes open, no purposeful response to commands) Results - Labs CBC & Chem 7: 10/13/18 05:25 10/13/18 05:25 Labs: Laboratory Last Values WBC 12.1 K/mm3 (4.5-11.0) H 10/13/18 05:25 RBC 3.02 M/mm3 (3.65-5.03) L 10/13/18 05:25 Hgb 7.4 gm/dl (10.1-14.3) L 10/13/18 05:25 Hct 23.7 % (30.3-42.9) L 10/13/18 05:25 MCV 79 fl (79-97) 10/13/18 05:25 MCH 25 pg (28-32) L 10/13/18 05:25 MCHC 31 % (30-34) 10/13/18 05:25 RDW 21.0 % (13.2-15.2) H 10/13/18 05:25 Plt Count 284 K/mm3 (140-440) 10/13/18 05:25 Lymph % (Auto) 9.6 % (13.4-35.0) L 10/13/18 05:25 [place] % (Auto) 10.0 % (0.0-7.3) H 10/13/18 05:25 Eos % (Auto) 3.7 % (0.0-4.3) 10/13/18 05:25 Baso % (Auto) 0.5 % (0.0-1.8) 10/13/18 05:25 Lymph # 1.2 K/mm3 (1.2-5.4) 10/13/18 05:25 Sampson # 1.2 K/mm3 (0.0-0.8) H 10/13/18 05:25 Eos # 0.4 K/mm3 (0.0-0.4) 10/13/18 05:25 Baso # 0.1 K/mm3 (0.0-0.1) 10/13/18 05:25 Seg Neutrophils % 76.2 % (40.0-70.0) H 10/13/18 05:25 Seg Neutrophils # 9.2 K/mm3 (1.8-7.7) H 10/13/18 05:25 PT 17.4 Sec. (12.2-14.9) H 10/13/18 06:45 INR 1.34 (0.87-1.13) H 10/13/18 06:45 APTT 54.9 Sec. (24.2-36.6) H 10/11/18 14:25 Heparin Anti-Xa Level 0.50 U.I./ml (0.3-0.7) 10/13/18 06:45 POC ABG pH 7.426 (7.35-7.45) 10/13/18 09:41 POC ABG pCO2 37.2 (35-45) 10/13/18 09:41 POC ABG pO2 71 (80-105) L 10/13/18 04:50 POC ABG HCO3 24.4 (22-26 mml/L) 10/13/18 09:41 POC ABG Total CO2 26 (23-27mmol/L) 10/13/18 09:41 POC ABG O2 Sat 70 10/13/18 09:41 POC ABG Base Excess 0 ((-2) - (+3)mmol/L) 10/13/18 09:41 30 % 10/13/18 09:41 Sodium 143 mmol/L (137-145) 10/13/18 05:25 Potassium 4.2 mmol/L (3.6-5.0) 10/13/18 05:25 Chloride 105.4 mmol/L (98-107) 10/13/18 05:25 Carbon Dioxide 26 mmol/L (22-30) 10/13/18 05:25 16 mmol/L 10/13/18 05:25 BUN 15 mg/dL (7-17) 10/13/18 05:25 1.6 mg/dL (0.7-1.2) H 10/13/18 05:25 Estimated GFR 41 ml/min 10/13/18 05:25 9 % 10/13/18 05:25 Glucose 175 mg/dL (65-100) H 10/13/18 05:25 POC Glucose 223 (70-105) H 10/13/18 11:12 10.2 % (4-6) H 10/07/18 22:08 Lactic Acid 1.50 mmol/L (0.7-2.0) 10/08/18 17:09 Calcium 8.3 mg/dL (8.4-10.2) L 10/13/18 05:25 Phosphorus 7.40 mg/dL (2.5-4.5) H 10/07/18 22:08 Magnesium 1.90 mg/dL (1.7-2.3) 10/08/18 04:05 0.20 mg/dL (0.1-1.2) 10/08/18 04:05 < 0.2 mg/dL (0-0.2) 10/07/18 02:43 0.5 mg/dL 10/07/18 02:43 AST 26 units/L (5-40) 10/08/18 04:05 ALT 22 units/L (7-56) 10/08/18 04:05 155 units/L (35-129) H 10/08/18 04:05 40.0 umol/L (25-60) 10/07/18 02:43 < 0.010 ng/mL (0.00-0.029) 10/07/18 08:59 0.20 mg/dL (0.00-1.30) 10/07/18 14:55 NT-Pro-B Natriuret Pep 2865 pg/mL (0-450) H 10/09/18 03:20 5.2 g/dL (6.3-8.2) L D 10/08/18 04:05 2.6 g/dL (3.9-5) L 10/08/18 04:05 1.0 % 10/08/18 04:05 Straw (Yellow) 10/07/18 02:34 Clear (Clear) 10/07/18 02:34 7.0 (5.0-7.0) 10/07/18 02:34 Ur Specific [place] 1.006 (1.003-1.030) 10/07/18 02:34 100 mg/dl mg/dL (Negative) 10/07/18 02:34 Neg mg/dL (Negative) 10/07/18 02:34 Neg mg/dL (Negative) 10/07/18 02:34 Sm (Negative) 10/07/18 02:34 Neg (Negative) 10/07/18 02:34 Neg (Negative) 10/07/18 02:34 < 2.0 mg/dL (<2.0) 10/07/18 02:34 Ur Leukocyte Esterase Tr (Negative) 10/07/18 02:34 1.0 /HPF (0.0-6.0) 10/07/18 02:34 5.0 /HPF (0.0-6.0) 10/07/18 02:34 U Epithel Cells (Auto) 1.0 /HPF (0-13.0) 10/07/18 02:34 Hyaline Casts 3 /LPF 10/07/18 02:34 Few /HPF 10/07/18 02:34 Presumptive negative 10/07/18 02:34 Presumptive negative 10/07/18 02:34 Ur Barbiturates Screen Presumptive negative 10/07/18 02:34 Ur Phencyclidine Scrn Presumptive negative 10/07/18 02:34 Ur Amphetamines Screen Presumptive negative 10/07/18 02:34 U Benzodiazepines Scrn Presumptive negative 10/07/18 02:34 Presumptive negative 10/07/18 02:34 U Marijuana (THC) Screen Presumptive positive 10/07/18 02:34 Disclamer 10/07/18 02:34 Active Medications - Current Medications Current Medications: Generic Name Dose Route Start Last Admin Trade Name Freq PRN Reason Stop Dose Admin Acetaminophen 650 mg 10/07/18 04:59 10/12/18 12:47 Tylenol PO 650 mg Q4H PRN Administration Pain MILD(1-3)/Fever >100.5/[id number] Lipase/Protease/Amylase 1 each 10/08/18 10:00 Pancreangelica Arredondo 10,500 Unit FEEDTUBE PRN PRN For Clogged Feeding Tube Dextrose 50 ml 10/07/18 20:42 10/10/18 05:46 D50w (25gm) Syringe IV 50 ml PRN PRN Administration Hypoglycemia Fentanyl 50 mcg 10/07/18 09:07 05/08/19 09:05 Sublimaze IV 50 mcg Q10MIN PRN Administration ANALGESIA Furosemide 40 mg 10/12/18 22:00 10/13/18 09:34 Lasix IV 10/14/18 10:01 40 mg BID ULI Administration Hydralazine HCl 10 mg 10/07/18 05:07 10/13/18 13:06 Apresoline IV 10 mg Q4H PRN Administration Blood Pressure Hydrophilic Ointment 1 applic 10/07/18 02:40 Vaseline Lip Therapy TP Q2HR PRN Dry Lips Heparin Sodium/Sodium Chloride 25,000 unit in 500 mls @ 20 mls/hr 10/11/18 15:00 10/13/18 01:00 Heparin/ 0.45% Nacl-25,000 Unit/500 Ml IV 850 units/hr TITR ULI 17 mls/hr Titration Protocol 1,000 UNITS/HR Insulin Glargine 5 units 10/12/18 12:00 10/13/18 09:34 Lantus SUB-Q 5 units DAILY ULI Administration Insulin Human Lispro 0 unit 10/09/18 00:00 10/13/18 13:01 Humalog SUB-Q 2 unit Q6HR ULI Administration Protocol Lansoprazole 30 mg 10/15/18 10:00 Prevacid Solutab FEEDTUBE QDAY ULI Metoclopramide HCl 10 mg 10/11/18 13:00 10/12/18 19:32 Reglan IV 10 mg Q6HR PRN Administration Nausea And Vomiting Metoprolol Tartrate 25 mg 10/12/18 14:00 10/13/18 14:02 Lopressor PO 25 mg TID ULI Administration Midazolam HCl 2 mg 10/07/18 06:03 10/12/18 04:21 Versed IV 2 mg Q10MIN PRN Administration Sedation Multi-Ingred Cream/Lotion/Oil/Oint 1 applic 10/07/18 02:40 Artificial Tears Ophth Oint OU Q4HR PRN Dry Eye(s) Ondansetron HCl 4 mg 10/07/18 04:59 Zofran IV Q8H PRN N/V unrelieved by Reglan Pantoprazole Sodium 40 mg 10/13/18 10:00 10/13/18 09:34 Protonix IV 10/14/18 10:01 40 mg QDAY ULI Administration Quetiapine Fumarate 100 mg 10/09/18 22:00 10/12/18 21:34 Seroquel PO 100 mg QHS ULI Administration Simple Syrup 15 ml 10/08/18 10:00 Simple Syrup FEEDTUBE PRN PRN Hypoglycemia Simple Syrup 30 ml 10/08/18 10:00 10/09/18 01:09 Simple Syrup FEEDTUBE 30 ml PRN PRN Administration Hypoglycemia Sodium Bicarbonate 325 mg 10/08/18 10:00 Sodium Bicarbonate FEEDTUBE PRN PRN For Clogged Feeding Tube Sodium Chloride 10 ml 10/07/18 10:00 10/13/18 09:44 Sodium Chloride Flush Syringe 10 Ml IV 10 ml BID ULI Administration Sodium Chloride 10 ml 10/07/18 04:59 Sodium Chloride Flush Syringe 10 Ml IV PRN PRN LINE FLUSH Warfarin Sodium 10 mg 10/13/18 17:00 Coumadin PO DAILY@17[facility] Nutrition/Malnutrition Assess - Dietary Evaluation Nutrition/Malnutrition Findings: Nutrition Notes Start: 10/07/18 12:17 Freq: Status: Active Protocol: Document 10/13/18 09:36 CP (Rec: 10/13/18 09:38 CP [id number]) Co-Sign 10/13/18 09:36 LP Nutrition Notes Initial or Follow up Brief Note Subjective/Other Information F/U for TF to start and pt screened for DNI. TF was infusing at goal rate during time of visit. Pt will be extubated today as discussed in rounds. Nutrition Intervention Follow-Up By: 10/17/18 Additional Comments F/U: Diet advancement/coumadin
[2018-10-13] MEDS ORDERED: COUMADIN PO SCH (17:00)
--- NOTE | 2018-10-13 17:43 | Progress Note ---
Assessment and Plan Cultures: Blood culture 10/07/2018 no growth today. Sputum culture 10/07/2018 normal resp justa. Assessment: 48 y/o female with history of CAD s/p CABG x 2, mitral valve replacement with mechanical valve on 01/06/2018 at [facility] on anticoagulation, CHF, cardiac arrest, diabetes, hypertension, HLP, CKD, previous GI bleed with INR>17 and noncompliance; admitted on 10/07/2018 due to altered mental status/seizures found hypoglycemic: 1. SIRS v/s Sepsis: still tachycardia. Etiology most likely pneumonia +/- seizu res. CRP 0.2. Blood culture 10/07/2018 no growth today. 2) Seizures: from hypoglycemia 3) RLL pneumonia: likely aspiration. Sputum culture 10/07/2018 normal resp ujsta. CXR RLL infiltrate and right pleural effusion. She was on zosyn x 3 days. 4) ASHELY on CKD 5) Elevated LFTs from seizures 6) Acute encephalopathy from seizures - resolved 7) Diarrhea ? from reglan Recommendations: - stop ceftriaxone and flagyl for aspiration pnumonitis D 5 of 5 (was on zosyn x 3 days) - monitor diarrhea and tachycardia Will sign off call me for questions Steffanie Sun MD Infectious Diseases [employer] [facility] M [phone] O [phone] Subjective Date of service: 10/13/18 Principal diagnosis: GI bleed Interval history: Now extubated alert talking. tachycardic on monitor. ROS unable to obtain Objective - Exam Narrative Exam: General appearance: alert in NAD talking Eyes: anicteric sclerae, moist conjunctivae; no lid-lag; PERRLA HENT: Atraumatic; oropharynx clear Neck: Trachea midline; supple, no thyromegaly or lymphadenopathy Lungs: coarse breath sounds gwendolyn CV: RRR, no murmurs Abdomen: Soft, non-tender; no masses or hepatosplenomegaly Extremities: No peripheral edema or extremity lymphadenopathy Skin: Normal temperature, turgor and texture; no rash, ulcers or subcutaneous nodules Psych: no agitated. Neuro: alert and moving all ext large diarrhea - Constitutional Vitals: Vital Signs Temp Pulse Resp BP Pulse Ox 99.4 F 132 H 14 158/78 91 10/13/18 16:06 10/13/18 17:01 10/13/18 17:01 10/13/18 17:01 10/13/18 17:01 Temperature -Last 24 Hours Temperature 99.4 F Temperature 99 F Temperature 99.0 F Temperature 98.3 F Temperature 98.6 F Temperature 99.0 F Temperature 98.9 F - Labs CBC & Chem 7: 10/13/18 05:25 10/13/18 05:25 Labs: Abnormal lab results 10/12/18 10/12/18 10/12/18 Range/Units 17:53 18:57 21:35 WBC 11.8 H (4.5-11.0) K/mm3 RBC 3.08 L (3.65-5.03) M/mm3 Hgb 7.4 L (10.1-14.3) gm/dl Hct 24.2 L (30.3-42.9) % MCH 24 L (28-32) pg RDW 21.5 H (13.2-15.2) % Lymph % (Auto) (13.4-35.0) % [place] % (Auto) (0.0-7.3) % [place] # (0.0-0.8) K/mm3 Seg Neutrophils % (40.0-70.0) % Seg Neutrophils # (1.8-7.7) K/mm3 PT (12.2-14.9) Sec. INR (0.87-1.13) Heparin Anti-Xa Level 1.74 H (0.3-0.7) U.I./ml POC ABG pH (7.35-7.45) POC ABG pCO2 (35-45) POC ABG pO2 (80-105) Creatinine (0.7-1.2) mg/dL Glucose (65-100) mg/dL POC Glucose 211 H (70-105) Calcium (8.4-10.2) mg/dL 10/13/18 10/13/18 10/13/18 Range/Units 04:50 05:25 05:25 WBC 12.1 H (4.5-11.0) K/mm3 RBC 3.02 L (3.65-5.03) M/mm3 Hgb 7.4 L (10.1-14.3) gm/dl Hct 23.7 L (30.3-42.9) % MCH 25 L (28-32) pg RDW 21.0 H (13.2-15.2) % Lymph % (Auto) 9.6 L (13.4-35.0) % [place] % (Auto) 10.0 H (0.0-7.3) % [place] # 1.2 H (0.0-0.8) K/mm3 Seg Neutrophils % 76.2 H (40.0-70.0) % Seg Neutrophils # 9.2 H (1.8-7.7) K/mm3 PT (12.2-14.9) Sec. INR (0.87-1.13) Heparin Anti-Xa Level (0.3-0.7) U.I./ml POC ABG pH 7.497 H (7.35-7.45) POC ABG pCO2 33.2 L (35-45) POC ABG pO2 71 L (80-105) Creatinine 1.6 H (0.7-1.2) mg/dL Glucose 175 H (65-100) mg/dL POC Glucose (70-105) Calcium 8.3 L (8.4-10.2) mg/dL 10/13/18 10/13/18 10/13/18 Range/Units 05:37 06:45 11:12 WBC (4.5-11.0) K/mm3 RBC (3.65-5.03) M/mm3 Hgb (10.1-14.3) gm/dl Hct (30.3-42.9) % MCH (28-32) pg RDW (13.2-15.2) % Lymph % (Auto) (13.4-35.0) % [place] % (Auto) (0.0-7.3) % [place] # (0.0-0.8) K/mm3 Seg Neutrophils % (40.0-70.0) % Seg Neutrophils # (1.8-7.7) K/mm3 PT 17.4 H (12.2-14.9) Sec. INR 1.34 H (0.87-1.13) Heparin Anti-Xa Level (0.3-0.7) U.I./ml POC ABG pH (7.35-7.45) POC ABG pCO2 (35-45) POC ABG pO2 (80-105) Creatinine (0.7-1.2) mg/dL Glucose (65-100) mg/dL POC Glucose 165 H 223 H (70-105) Calcium (8.4-10.2) mg/dL 10/13/18 Range/Units 17:19 WBC (4.5-11.0) K/mm3 RBC (3.65-5.03) M/mm3 Hgb (10.1-14.3) gm/dl Hct (30.3-42.9) % MCH (28-32) pg RDW (13.2-15.2) % Lymph % (Auto) (13.4-35.0) % [place] % (Auto) (0.0-7.3) % [place] # (0.0-0.8) K/mm3 Seg Neutrophils % (40.0-70.0) % Seg Neutrophils # (1.8-7.7) K/mm3 PT (12.2-14.9) Sec. INR (0.87-1.13) Heparin Anti-Xa Level (0.3-0.7) U.I./ml POC ABG pH (7.35-7.45) POC ABG pCO2 (35-45) POC ABG pO2 (80-105) Creatinine (0.7-1.2) mg/dL Glucose (65-100) mg/dL POC Glucose 129 H (70-105) Calcium (8.4-10.2) mg/dL
[2018-10-13] MEDS: HEPARIN/ 0.45% NACL-25,000 UNIT/500 ML 25,000 UNIT/500 ML BAG IV SCH (21:47)
[2018-10-13] MEDS ORDERED: PROVENTIL IH ONE (22:02)
[2018-10-14] MEDS: HumaLOG SUB-Q SCH ×4 (03:16→18:00)
[2018-10-14] MEDS: APRESOLINE IV PRN ×2 (03:42→08:35)
[2018-10-14 06:34] LABS: INR 1.8 (0.87-1.13)
[2018-10-14] MEDS: LOPRESSOR PO SCH ×3 (08:00→22:18)
--- NOTE | 2018-10-14 08:40 | Progress Note ---
Assessment and Plan Impression * Acute kidney injury * Metabolic acidosis * Hypernatremia * Mechanical aortic valve * Sepsis * Seizure disorder * Transaminitis * Encephalopathy Recommendations * Patient's renal function has leveled off. Back to baseline * She does have underlying chronic kidney disease. Baseline creatinine approximately 1.6. * Patient is currently nonoliguric * Hyponatremia has been corrected. * Her acidosis has been corrected . Off bicarbonate drip * Chest x-ray showing right basal infiltrates and some pleural effusion. Loop diuretic as needed * Echocardiogram showing ejection fraction of 40% with dilated ventricles * Her blood pressure still elevated. Increase metoprolol Subjective Date of service: 10/14/18 Principal diagnosis: Ac hypoxemic resp failure; Seizures (?hypoglycemic); Ac encephalopathy(T/M) Interval history: Patient has been extubated. She is currently on 50% Ventimask. Comfortable. Objective - Vital Signs Vital signs: Vital Signs - 12hr 10/13/18 10/13/18 10/13/18 21:01 21:27 21:30 Temperature Pulse Rate 128 H 128 H 127 H Pulse Rate [ Anterior Bilateral Throughout] Pulse Rate [ Right Dorsalis Pedis] Respiratory 20 23 Rate Respiratory Rate [Anterior Bilateral Throughout] Blood Pressure 137/68 137/68 153/82 O2 Sat by Pulse 96 96 Oximetry 10/13/18 10/13/18 10/13/18 22:01 22:02 22:10 Temperature Pulse Rate 132 H Pulse Rate [ 125 H 119 H Anterior Bilateral Throughout] Pulse Rate [ Right Dorsalis Pedis] Respiratory 19 Rate Respiratory 19 18 Rate [Anterior Bilateral Throughout] Blood Pressure 166/87 O2 Sat by Pulse 91 Oximetry 10/13/18 10/13/18 10/13/18 22:31 23:00 23:01 Temperature 98 F Pulse Rate 124 H 126 H Pulse Rate [ Anterior Bilateral Throughout] Pulse Rate [ Right Dorsalis Pedis] Respiratory 29 H 27 H Rate Respiratory Rate [Anterior Bilateral Throughout] Blood Pressure 169/92 157/74 O2 Sat by Pulse 82 L 97 Oximetry 10/13/18 10/13/18 10/14/18 23:24 23:31 00:00 Temperature Pulse Rate 125 H 122 H Pulse Rate [ Anterior Bilateral Throughout] Pulse Rate [ 120 H Right Dorsalis Pedis] Respiratory 25 H 25 H 20 Rate Respiratory Rate [Anterior Bilateral Throughout] Blood Pressure 166/87 150/82 O2 Sat by Pulse 97 98 92 Oximetry 10/14/18 10/14/18 10/14/18 00:01 00:31 01:01 Temperature Pulse Rate 126 H 138 H 126 H Pulse Rate [ Anterior Bilateral Throughout] Pulse Rate [ Right Dorsalis Pedis] Respiratory 22 28 H 29 H Rate Respiratory Rate [Anterior Bilateral Throughout] Blood Pressure 155/85 150/82 165/93 O2 Sat by Pulse 96 95 93 Oximetry 10/14/18 10/14/18 10/14/18 01:31 02:01 02:31 Temperature Pulse Rate 126 H 128 H 122 H Pulse Rate [ Anterior Bilateral Throughout] Pulse Rate [ Right Dorsalis Pedis] Respiratory 20 22 21 Rate Respiratory Rate [Anterior Bilateral Throughout] Blood Pressure 152/73 149/84 149/84 O2 Sat by Pulse 95 90 93 Oximetry 10/14/18 10/14/18 10/14/18 02:57 03:01 03:31 Temperature 99.1 F Pulse Rate 128 H 121 H Pulse Rate [ Anterior Bilateral Throughout] Pulse Rate [ Right Dorsalis Pedis] Respiratory 17 16 Rate Respiratory Rate [Anterior Bilateral Throughout] Blood Pressure 184/86 184/86 O2 Sat by Pulse 93 97 Oximetry 10/14/18 10/14/18 10/14/18 03:42 04:00 04:01 Temperature Pulse Rate 129 H Pulse Rate [ Anterior Bilateral Throughout] Pulse Rate [ 114 H Right Dorsalis Pedis] Respiratory 22 18 Rate Respiratory Rate [Anterior Bilateral Throughout] Blood Pressure 168/86 137/66 O2 Sat by Pulse 93 94 Oximetry 10/14/18 10/14/18 10/14/18 04:31 05:01 07:47 Temperature Pulse Rate 130 H 135 H Pulse Rate [ Anterior Bilateral Throughout] Pulse Rate [ Right Dorsalis Pedis] Respiratory 40 H 17 Rate Respiratory Rate [Anterior Bilateral Throughout] Blood Pressure 137/66 161/81 O2 Sat by Pulse 92 92 98 Oximetry 10/14/18 10/14/18 08:00 08:35 Temperature 99.7 F H Pulse Rate 127 H 126 H Pulse Rate [ Anterior Bilateral Throughout] Pulse Rate [ Right Dorsalis Pedis] Respiratory Rate Respiratory Rate [Anterior Bilateral Throughout] Blood Pressure 151/77 213/187 O2 Sat by Pulse Oximetry - General Appearance General appearance: well-developed, well-nourished, appears stated age EENT: PERRL, mucous membranes moist Neck: no JVD, no thyromegaly, no carotid bruit, supple Respiratory: Present: Ronchi (bilateral scattered rhonchi) Cardiology: regular, normal heart rate, S1S2, no murmurs Gastrointestinal: normal, normoactive bowel sounds Integumentary: no rash, other (no edema) - Lab 10/13/18 05:25 10/14/18 06:14 Most recent lab results Calcium 8.0 mg/dL (8.4-10.2) L 10/14/18 06:14 Phosphorus 7.40 mg/dL (2.5-4.5) H 10/07/18 22:08 Magnesium 1.90 mg/dL (1.7-2.3) 10/08/18 04:05 Medications & Allergies - Medications Allergies/Adverse Reactions: Allergies No Known Allergies Allergy (Verified 12/03/16 23:01) Home Medications: Home Medications Medication Instructions Recorded Confirmed Last Taken Type Metoprolol [Lopressor TAB] 25 mg PO BID #60 tablet 12/29/16 08/11/18 Unknown Rx Famotidine [Pepcid] 20 mg PO DAILY #30 tablet 02/04/17 08/07/18 Unknown Rx Metoprolol [Lopressor TAB] 50 mg PO TID #90 tablet 02/04/17 08/07/18 Unknown Rx Coumadin 5 mg PO .ASDIR #30 08/13/18 Unknown Rx Ferrous Sulfate [Feosol 325 MG tab] 325 mg PO BID #60 tablet 08/13/18 Unknown Rx Folic Acid [Folvite] 1 mg PO QDAY #30 tablet 08/13/18 Unknown Rx Furosemide [Lasix TAB] 40 mg PO DAILY #30 tablet 08/13/18 08/07/18 Unknown Rx Insulin Glargine [Lantus VIAL] 5 units SUB-Q BIDDIAB 30 Days 08/13/18 Unknown Rx units Multivitamin Tab [Multiple Vitamin 1 each PO QDAY #30 tablet 08/13/18 Unknown Rx TAB (Theragran)] Pantoprazole [Protonix TAB] 40 mg PO DAILY #30 tablet 08/13/18 Unknown Rx Thiamine [Vitamin B-1] 100 mg PO QDAY #30 tablet 08/13/18 Unknown Rx Warfarin [Coumadin] 7.5 mg PO .ASDIR 30 Days tablet 08/13/18 Unknown Rx Active Medications: Generic Name Dose Route Start Last Admin Trade Name Freq PRN Reason Stop Dose Admin Acetaminophen 650 mg 10/07/18 04:59 10/12/18 12:47 Tylenol PO 650 mg Q4H PRN Administration Pain MILD(1-3)/Fever >100.5/RODRIGUEZ Lipase/Protease/Amylase 1 each 10/08/18 10:00 Jonatan Arredondo 10,500 Unit FEEDTUBE PRN PRN For Clogged Feeding Tube Dextrose 50 ml 10/07/18 20:42 10/10/18 05:46 D50w (25gm) Syringe IV 50 ml PRN PRN Administration Hypoglycemia Fentanyl 50 mcg 10/07/18 09:07 10/12/18 09:05 Sublimaze IV 50 mcg Q10MIN PRN Administration ANALGESIA Furosemide 40 mg 10/12/18 22:00 10/13/18 21:27 Lasix IV 10/14/18 10:01 40 mg BID ULI Administration Hydralazine HCl 10 mg 10/07/18 05:07 10/14/18 08:35 Apresoline IV 10 mg Q4H PRN Administration Blood Pressure Hydrophilic Ointment 1 applic 10/07/18 02:40 Vaseline Lip Therapy TP Q2HR PRN Dry Lips Heparin Sodium/Sodium Chloride 25,000 unit in 500 mls @ 20 mls/hr 10/11/18 15:00 10/13/18 21:47 Heparin/ 0.45% Nacl-25,000 Unit/500 Ml IV 850 units/hr TITR ULI 17 mls/hr Administration Protocol 1,000 UNITS/HR Insulin Glargine 5 units 10/12/18 12:00 10/13/18 09:34 Lantus SUB-Q 5 units DAILY [facility] Administration Insulin Human Lispro 0 unit 10/09/18 00:00 10/14/18 06:00 Humalog SUB-Q Not Given Q6HR [facility] Protocol Lansoprazole 30 mg 10/15/18 10:00 Prevacid Solutab FEEDTUBE QDAY [facility] Metoclopramide HCl 10 mg 10/11/18 13:00 10/12/18 19:32 Reglan IV 10 mg Q6HR PRN Administration Nausea And Vomiting Metoprolol Tartrate 25 mg 10/12/18 14:00 10/14/18 08:00 Lopressor PO 25 mg TID ULI Administration Midazolam HCl 2 mg 10/07/18 06:03 10/12/18 04:21 Versed IV 2 mg Q10MIN PRN Administration Sedation Multi-Ingred Cream/Lotion/Oil/Oint 1 applic 10/07/18 02:40 Artificial Tears Ophth Oint OU Q4HR PRN Dry Eye(s) Ondansetron HCl 4 mg 10/07/18 04:59 Zofran IV Q8H PRN N/V unrelieved by Reglan Pantoprazole Sodium 40 mg 10/13/18 10:00 10/13/18 09:34 Protonix IV 10/14/18 10:01 40 mg QDAY [facility] Administration Quetiapine Fumarate 100 mg 10/09/18 22:00 10/13/18 21:28 Seroquel PO 100 mg QHS [facility] Administration Simple Syrup 15 ml 10/08/18 10:00 Simple Syrup FEEDTUBE PRN PRN Hypoglycemia Simple Syrup 30 ml 10/08/18 10:00 10/09/18 01:09 Simple Syrup FEEDTUBE 30 ml PRN PRN Administration Hypoglycemia Sodium Bicarbonate 325 mg 10/08/18 10:00 Sodium Bicarbonate FEEDTUBE PRN PRN For Clogged Feeding Tube Sodium Chloride 10 ml 10/07/18 10:00 10/13/18 21:28 Sodium Chloride Flush Syringe 10 Ml IV 10 ml BID [facility]LI Administration Sodium Chloride 10 ml 10/07/18 04:59 Sodium Chloride Flush Syringe 10 Ml IV PRN PRN LINE FLUSH Warfarin Sodium 10 mg 10/13/18 17:00 10/13/18 17:25 Coumadin PO 10 mg DAILY@1700 [facility] Administration
--- NOTE | 2018-10-14 09:07 | Progress Note ---
Assessment and Plan Acute hypoxemic respiratory failure, on mechanical ventilatory support. Symptomatic hypoglycemia. Seizures, possibly related to the hypoglycemia. Acute encephalopathy, toxic metabolic. Mild Hyponatremia Hyperkalemia s/p CABG with mechanical valve History of cardiomyopathy. (EF 40%) Right pleural effusion with infiltrate- probable aspiration History of diabetes. Hypertension. Coagulopathy that is probably related to her Coumadin use at home Tolerating SBT today. Get weaning parameters, if acceptable will liberate from MVS Once liberated get swallow evaluation, patient has an OGT PT/OT to evaluate ad treat Parameters NIF- 26, RSBI 89. Give an additional dose of furosemide prior to extubation -Wean supplemental oxygen to keep O2 sats 88-90% -PRN ABGs/CXR for now -VAP bundle addressed -Monitor renal indices closely -Avoid nephrotoxic agents, adjust all medications for CrCL -Strict intake and output monitoring -Stress ulcer prophylaxis -VTE prophylaxis- anticoagulated. Has a mechanical valve, on heparin infusion -Aspiration precautions -Accuchecks with glycemic control. Target glucose of 140-180 mg/dL -Bronchodilators with pulmonary hygiene per RT -Maintenance of sleep -wake cycle -Mobility as tolerated by hemodynamics -Influenza and pneumonia vaccination per protocol ..care plan discussed at length with RN/RT at the bedside PROGNOSIS:GUARDED CONDITION: CRITICAL CODE STATUS: FULL CODE The high probability of a clinically significant, sudden or life-threatening deterioration of the [respiratory, neurology, renal, endocrine] system(s) required my full and direct attention, intervention and personal management. The aggregate critical care time was [30] minutes without overlap. Time includes spent on; [x] Data Review and interpretation [x] Patient assessment and monitoring of vital signs [x] Documentation [x] Medication orders and management Subjective Date of service: 10/14/18 Principal diagnosis: Ac hypoxemic resp failure; Seizures (?hypoglycemic); Ac encephalopathy(T/M) Interval history: Patient is seen today for: Acute hypoxemic respiratory failure, on mechanical ventilatory support; Symptomatic hypoglycemia; Seizures, possibly related to the hypoglycemia; Acute encephalopathy, toxic metabolic; Mild Hyponatremia; History of cardiomyopathy. (EF 40%) Seen and examined at bedside; 24hour events reviewed; nursing and respiratory care staff consulted; no adverse overnight events reported to me; no fevers, t olerating tube feedings, on SBT and tolerating it. Objective Vital Signs - 12hr 10/13/18 10/13/18 10/13/18 21:27 21:30 22:01 Temperature Pulse Rate 128 H 127 H 132 H Pulse Rate [ Anterior Bilateral Throughout] Pulse Rate [ Right Dorsalis Pedis] Respiratory 23 19 Rate Respiratory Rate [Anterior Bilateral Throughout] Blood Pressure 137/68 153/82 166/87 O2 Sat by Pulse 96 91 Oximetry 10/13/18 10/13/18 10/13/18 22:02 22:10 22:31 Temperature Pulse Rate 124 H Pulse Rate [ 125 H 119 H Anterior Bilateral Throughout] Pulse Rate [ Right Dorsalis Pedis] Respiratory 29 H Rate Respiratory 19 18 Rate [Anterior Bilateral Throughout] Blood Pressure 169/92 O2 Sat by Pulse 82 L Oximetry 10/13/18 10/13/18 10/13/18 23:00 23:01 23:24 Temperature 98 F Pulse Rate 126 H 125 H Pulse Rate [ Anterior Bilateral Throughout] Pulse Rate [ Right Dorsalis Pedis] Respiratory 27 H 25 H Rate Respiratory Rate [Anterior Bilateral Throughout] Blood Pressure 157/74 166/87 O2 Sat by Pulse 97 97 Oximetry 10/13/18 10/14/18 10/14/18 23:31 00:00 00:01 Temperature Pulse Rate 122 H 126 H Pulse Rate [ Anterior Bilateral Throughout] Pulse Rate [ 120 H Right Dorsalis Pedis] Respiratory 25 H 20 22 Rate Respiratory Rate [Anterior Bilateral Throughout] Blood Pressure 150/82 155/85 O2 Sat by Pulse 98 92 96 Oximetry 10/14/18 10/14/18 10/14/18 00:31 01:01 01:31 Temperature Pulse Rate 138 H 126 H 126 H Pulse Rate [ Anterior Bilateral Throughout] Pulse Rate [ Right Dorsalis Pedis] Respiratory 28 H 29 H 20 Rate Respiratory Rate [Anterior Bilateral Throughout] Blood Pressure 150/82 165/93 152/73 O2 Sat by Pulse 95 93 95 Oximetry 10/14/18 10/14/18 10/14/18 02:01 02:31 02:57 Temperature 99.1 F Pulse Rate 128 H 122 H Pulse Rate [ Anterior Bilateral Throughout] Pulse Rate [ Right Dorsalis Pedis] Respiratory 22 21 Rate Respiratory Rate [Anterior Bilateral Throughout] Blood Pressure 149/84 149/84 O2 Sat by Pulse 90 93 Oximetry 10/14/18 10/14/18 10/14/18 03:01 03:31 03:42 Temperature Pulse Rate 128 H 121 H Pulse Rate [ Anterior Bilateral Throughout] Pulse Rate [ Right Dorsalis Pedis] Respiratory 17 16 Rate Respiratory Rate [Anterior Bilateral Throughout] Blood Pressure 184/86 184/86 168/86 O2 Sat by Pulse 93 97 Oximetry 10/14/18 10/14/18 10/14/18 04:00 04:01 04:31 Temperature Pulse Rate 129 H 130 H Pulse Rate [ Anterior Bilateral Throughout] Pulse Rate [ 114 H Right Dorsalis Pedis] Respiratory 22 18 40 H Rate Respiratory Rate [Anterior Bilateral Throughout] Blood Pressure 137/66 137/66 O2 Sat by Pulse 93 94 92 Oximetry 10/14/18 10/14/18 10/14/18 05:01 07:47 08:00 Temperature 99.7 F H Pulse Rate 135 H 127 H Pulse Rate [ Anterior Bilateral Throughout] Pulse Rate [ Right Dorsalis Pedis] Respiratory 17 Rate Respiratory Rate [Anterior Bilateral Throughout] Blood Pressure 161/81 151/77 O2 Sat by Pulse 92 98 Oximetry 10/14/18 08:35 Temperature Pulse Rate 126 H Pulse Rate [ Anterior Bilateral Throughout] Pulse Rate [ Right Dorsalis Pedis] Respiratory Rate Respiratory Rate [Anterior Bilateral Throughout] Blood Pressure 213/187 O2 Sat by Pulse Oximetry Constitutional: no acute distress, other (middle aged AAF, normocephalic and with mildly increased resp effort at rest) Eyes: non-icteric ENT: oropharynx moist, other (ETT 23 cm CAT[place]) Neck: supple, no lymphadenopathy, no JVD Effort: mildly labored Ascultation: Bilateral: diminished breath sounds (bases), rales Percussion: Right: dull (base), Bilateral: not dull Cardiovascular: regular rate and rhythm, other (+ metalic valve click) Gastrointestinal: normoactive bowel sounds, soft, non-tender, non-distended, other (No HSM) Integumentary: normal Extremities: no cyanosis, no edema, pulses normal, no ischemia or petechiae Neurologic: non-focal exam (grossly), pupils equal and round, motor strength normal and, other (somnolent) Psychiatric: other (flat affect) CBC and BMP: 10/17/18 05:00 10/17/18 05:00 ABG, PT/INR, D-dimer: ABG POC ABG pH 7.426 (7.35-7.45) 10/13/18 09:41 POC ABG pCO2 37.2 (35-45) 10/13/18 09:41 POC ABG HCO3 24.4 (22-26 mml/L) 10/13/18 09:41 POC ABG Total CO2 26 (23-27mmol/L) 10/13/18 09:41 POC ABG O2 Sat 70 10/13/18 09:41 PT/INR, D-dimer PT 22.1 Sec. (12.2-14.9) H 10/14/18 06:14 INR 1.80 (0.87-1.13) H 10/14/18 06:14 Abnormal lab findings: Abnormal Labs 10/07/18 10/07/18 10/07/18 02:20 02:43 02:43 WBC RBC Hgb Hct MCH 25 L RDW 21.5 H Lymph % (Auto) [place] % (Auto) Lymph # 0.9 L [place] # Seg Neutrophils % 78.4 H Seg Neutrophils # PT INR APTT Heparin Anti-Xa Level POC ABG pH POC ABG pCO2 POC ABG pO2 Sodium Potassium Chloride 108.0 H Carbon Dioxide 21 L BUN Creatinine 1.5 H Glucose 115 H POC Glucose 136 H Hemoglobin A1c Lactic Acid Calcium Phosphorus AST 51 H Alkaline Phosphatase 257 H NT-Pro-B Natriuret Pep Total Protein Albumin 10/07/18 10/07/18 10/07/18 02:43 04:32 05:12 WBC RBC Hgb Hct MCH RDW Lymph % (Auto) [place] % (Auto) Lymph # [place] # Seg Neutrophils % Seg Neutrophils # PT 25.4 H INR 2.14 H APTT Heparin Anti-Xa Level POC ABG pH POC ABG pCO2 33.6 L POC ABG pO2 69 L Sodium Potassium Chloride Carbon Dioxide BUN Creatinine Glucose POC Glucose Hemoglobin A1c Lactic Acid 2.40 H* Calcium Phosphorus AST Alkaline Phosphatase NT-Pro-B Natriuret Pep Total Protein Albumin 10/07/18 10/07/18 10/07/18 06:28 18:39 20:26 WBC RBC Hgb Hct MCH RDW Lymph % (Auto) [place] % (Auto) Lymph # [place] # Seg Neutrophils % Seg Neutrophils # PT INR APTT Heparin Anti-Xa Level POC ABG pH POC ABG pCO2 POC ABG pO2 Sodium Potassium Chloride Carbon Dioxide BUN Creatinine Glucose POC Glucose 164 H 440 H > 500 H Hemoglobin A1c Lactic Acid Calcium Phosphorus AST Alkaline Phosphatase NT-Pro-B Natriuret Pep Total Protein Albumin 10/07/18 10/07/18 10/07/18 20:28 21:53 22:08 WBC RBC Hgb Hct MCH RDW Lymph % (Auto) [place] % (Auto) Lymph # [place] # Seg Neutrophils % Seg Neutrophils # PT INR APTT Heparin Anti-Xa Level POC ABG pH POC ABG pCO2 POC ABG pO2 Sodium 136 L D Potassium 6.4 H* D Chloride Carbon Dioxide 10 L D BUN 30 H Creatinine 2.0 H Glucose 544 H* POC Glucose 483 H > 500 H Hemoglobin A1c Lactic Acid Calcium 7.0 L D Phosphorus AST Alkaline Phosphatase NT-Pro-B Natriuret Pep Total Protein Albumin 10/07/18 10/07/18 10/07/18 22:08 22:08 22:56 WBC RBC Hgb Hct MCH RDW Lymph % (Auto) [place] % (Auto) Lymph # [place] # Seg Neutrophils % Seg Neutrophils # PT INR APTT Heparin Anti-Xa Level POC ABG pH POC ABG pCO2 POC ABG pO2 Sodium Potassium Chloride Carbon Dioxide BUN Creatinine Glucose POC Glucose 462 H Hemoglobin A1c 10.2 H Lactic Acid Calcium Phosphorus 7.40 H AST Alkaline Phosphatase NT-Pro-B Natriuret Pep Total Protein Albumin 10/07/18 10/08/18 10/08/18 23:39 00:58 02:09 WBC RBC Hgb Hct MCH RDW Lymph % (Auto) [place] % (Auto) Lymph # [place] # Seg Neutrophils % Seg Neutrophils # PT INR APTT Heparin Anti-Xa Level POC ABG pH POC ABG pCO2 POC ABG pO2 Sodium Potassium Chloride Carbon Dioxide BUN Creatinine Glucose POC Glucose 396 H 375 H 285 H Hemoglobin A1c Lactic Acid Calcium Phosphorus AST Alkaline Phosphatase NT-Pro-B Natriuret Pep Total Protein Albumin 10/08/18 10/08/18 10/08/18 03:10 03:33 04:05 WBC RBC Hgb Hct MCH RDW Lymph % (Auto) [place] % (Auto) Lymph # [place] # Seg Neutrophils % Seg Neutrophils # PT INR APTT Heparin Anti-Xa Level POC ABG pH 7.243 L POC ABG pCO2 33.8 L POC ABG pO2 126 H Sodium Potassium 5.3 H Chloride 110.7 H Carbon Dioxide 14 L BUN 33 H Creatinine 2.2 H Glucose 193 H POC Glucose 251 H Hemoglobin A1c Lactic Acid Calcium 7.0 L Phosphorus AST Alkaline Phosphatase 155 H NT-Pro-B Natriuret Pep Total Protein 5.2 L D Albumin 2.6 L 10/08/18 10/08/18 10/08/18 04:05 04:05 04:09 WBC 11.8 H RBC 3.32 L Hgb 8.3 L Hct 27.5 L D MCH 25 L RDW 22.0 H Lymph % (Auto) 6.8 L [place] % (Auto) 12.0 H Lymph # 0.8 L [place] # 1.4 H Seg Neutrophils % 80.6 H Seg Neutrophils # 9.5 H PT INR APTT Heparin Anti-Xa Level POC ABG pH POC ABG pCO2 POC ABG pO2 Sodium Potassium Chloride Carbon Dioxide BUN Creatinine Glucose POC Glucose 175 H Hemoglobin A1c Lactic Acid 3.70 H* Calcium Phosphorus AST Alkaline Phosphatase NT-Pro-B Natriuret Pep Total Protein Albumin 10/08/18 10/08/18 10/08/18 05:07 06:05 07:14 WBC RBC Hgb Hct MCH RDW Lymph % (Auto) [place] % (Auto) Lymph # [place] # Seg Neutrophils % Seg Neutrophils # PT INR APTT Heparin Anti-Xa Level POC ABG pH POC ABG pCO2 POC ABG pO2 Sodium Potassium Chloride Carbon Dioxide BUN Creatinine Glucose POC Glucose 125 H 122 H 147 H Hemoglobin A1c Lactic Acid Calcium Phosphorus AST Alkaline Phosphatase NT-Pro-B Natriuret Pep Total Protein Albumin 10/08/18 10/08/18 10/08/18 07:22 08:09 08:47 WBC RBC Hgb Hct MCH RDW Lymph % (Auto) [place] % (Auto) Lymph # [place] # Seg Neutrophils % Seg Neutrophils # PT INR APTT Heparin Anti-Xa Level POC ABG pH POC ABG pCO2 POC ABG pO2 Sodium Potassium 5.2 H Chloride 112.4 H Carbon Dioxide 17 L BUN 32 H Creatinine 2.1 H Glucose 148 H POC Glucose 134 H 148 H Hemoglobin A1c Lactic Acid Calcium 6.6 L Phosphorus AST Alkaline Phosphatase NT-Pro-B Natriuret Pep Total Protein Albumin 10/08/18 10/08/18 10/08/18 10:21 13:29 14:21 WBC RBC Hgb Hct MCH RDW Lymph % (Auto) [place] % (Auto) Lymph # [place] # Seg Neutrophils % Seg Neutrophils # PT INR APTT Heparin Anti-Xa Level POC ABG pH POC ABG pCO2 POC ABG pO2 Sodium Potassium Chloride Carbon Dioxide BUN Creatinine Glucose POC Glucose 115 H 109 H 118 H Hemoglobin A1c Lactic Acid Calcium Phosphorus AST Alkaline Phosphatase NT-Pro-B Natriuret Pep Total Protein Albumin 10/08/18 10/08/18 10/08/18 15:27 17:00 17:00 WBC 11.3 H RBC 3.21 L Hgb 7.9 L Hct 25.7 L MCH 25 L RDW 21.8 H Lymph % (Auto) 8.5 L [place] % (Auto) 7.7 H Lymph # 1.0 L [place] # 0.9 H Seg Neutrophils % 82.8 H Seg Neutrophils # 9.3 H PT INR APTT Heparin Anti-Xa Level POC ABG pH POC ABG pCO2 POC ABG pO2 Sodium Potassium Chloride Carbon Dioxide BUN Creatinine Glucose POC Glucose 129 H Hemoglobin A1c Lactic Acid Calcium Phosphorus AST Alkaline Phosphatase NT-Pro-B Natriuret Pep 3097 H Total Protein Albumin 10/08/18 10/08/18 10/08/18 17:07 17:12 18:22 WBC RBC Hgb Hct MCH RDW Lymph % (Auto) [place] % (Auto) Lymph # [place] # Seg Neutrophils % Seg Neutrophils # PT INR APTT Heparin Anti-Xa Level POC ABG pH 7.337 L POC ABG pCO2 32.0 L POC ABG pO2 130 H Sodium Potassium Chloride 115.5 H Carbon Dioxide 17 L BUN 30 H Creatinine 1.9 H Glucose 103 H POC Glucose 119 H Hemoglobin A1c Lactic Acid Calcium 6.9 L Phosphorus AST Alkaline Phosphatase NT-Pro-B Natriuret Pep Total Protein Albumin 10/08/18 10/08/18 10/09/18 20:09 20:57 01:10 WBC RBC Hgb Hct MCH RDW Lymph % (Auto) [place] % (Auto) Lymph # [place] # Seg Neutrophils % Seg Neutrophils # PT INR APTT Heparin Anti-Xa Level POC ABG pH POC ABG pCO2 POC ABG pO2 Sodium Potassium Chloride 114.3 H 113.7 H Carbon Dioxide 15 L 14 L BUN 29 H 29 H Creatinine 2.1 H 2.0 H Glucose 132 H 39 L* POC Glucose 150 H Hemoglobin A1c Lactic Acid Calcium 6.7 L 6.9 L Phosphorus AST Alkaline Phosphatase NT-Pro-B Natriuret Pep Total Protein Albumin 10/09/18 10/09/18 10/09/18 01:10 01:43 03:20 WBC RBC Hgb Hct MCH RDW Lymph % (Auto) [place] % (Auto) Lymph # [place] # Seg Neutrophils % Seg Neutrophils # PT INR APTT Heparin Anti-Xa Level POC ABG pH POC ABG pCO2 POC ABG pO2 Sodium Potassium Chloride Carbon Dioxide BUN Creatinine Glucose POC Glucose < 40 L < 40 L Hemoglobin A1c Lactic Acid Calcium Phosphorus AST Alkaline Phosphatase NT-Pro-B Natriuret Pep 2865 H Total Protein Albumin 10/09/18 10/09/18 10/09/18 04:23 05:03 05:25 WBC RBC Hgb Hct MCH RDW Lymph % (Auto) [place] % (Auto) Lymph # [place] # Seg Neutrophils % Seg Neutrophils # PT INR APTT Heparin Anti-Xa Level POC ABG pH POC ABG pCO2 30.6 L 32.3 L POC ABG pO2 118 H Sodium Potassium Chloride Carbon Dioxide BUN Creatinine Glucose POC Glucose 148 H Hemoglobin A1c Lactic Acid Calcium Phosphorus AST Alkaline Phosphatase NT-Pro-B Natriuret Pep Total Protein Albumin 10/09/18 10/09/18 10/09/18 06:00 08:34 09:58 WBC RBC Hgb Hct MCH RDW Lymph % (Auto) [place] % (Auto) Lymph # [place] # Seg Neutrophils % Seg Neutrophils # PT INR APTT Heparin Anti-Xa Level POC ABG pH POC ABG pCO2 POC ABG pO2 Sodium Potassium Chloride Carbon Dioxide BUN Creatinine Glucose POC Glucose 173 H 196 H 183 H Hemoglobin A1c Lactic Acid Calcium Phosphorus AST Alkaline Phosphatase NT-Pro-B Natriuret Pep Total Protein Albumin 10/09/18 10/09/18 10/09/18 12:25 12:46 18:16 WBC RBC Hgb Hct MCH RDW Lymph % (Auto) [place] % (Auto) Lymph # [place] # Seg Neutrophils % Seg Neutrophils # PT INR APTT Heparin Anti-Xa Level POC ABG pH POC ABG pCO2 POC ABG pO2 Sodium Potassium Chloride 110.3 H Carbon Dioxide 16 L BUN 24 H Creatinine 1.8 H Glucose 207 H POC Glucose 208 H 177 H Hemoglobin A1c Lactic Acid Calcium 6.9 L Phosphorus AST Alkaline Phosphatase NT-Pro-B Natriuret Pep Total Protein Albumin 10/09/18 10/10/18 10/10/18 21:11 00:11 05:41 WBC RBC Hgb Hct MCH RDW Lymph % (Auto) [place] % (Auto) Lymph # [place] # Seg Neutrophils % Seg Neutrophils # PT INR APTT Heparin Anti-Xa Level POC ABG pH POC ABG pCO2 POC ABG pO2 Sodium Potassium Chloride Carbon Dioxide BUN Creatinine Glucose POC Glucose 124 H 156 H 42 L Hemoglobin A1c Lactic Acid Calcium Phosphorus AST Alkaline Phosphatase NT-Pro-B Natriuret Pep Total Protein Albumin 10/10/18 10/10/18 10/10/18 05:45 07:28 12:07 WBC RBC Hgb Hct MCH RDW Lymph % (Auto) [place] % (Auto) Lymph # [place] # Seg Neutrophils % Seg Neutrophils # PT INR APTT Heparin Anti-Xa Level POC ABG pH POC ABG pCO2 POC ABG pO2 Sodium 146 H D Potassium Chloride 111.2 H Carbon Dioxide BUN 21 H Creatinine 1.8 H Glucose 44 L POC Glucose 114 H 49 L Hemoglobin A1c Lactic Acid Calcium 7.4 L Phosphorus AST Alkaline Phosphatase NT-Pro-B Natriuret Pep Total Protein Albumin 10/10/18 10/10/18 10/10/18 12:37 18:02 20:47 WBC RBC Hgb Hct MCH RDW Lymph % (Auto) [place] % (Auto) Lymph # [place] # Seg Neutrophils % Seg Neutrophils # PT INR APTT Heparin Anti-Xa Level POC ABG pH POC ABG pCO2 POC ABG pO2 Sodium Potassium Chloride Carbon Dioxide BUN Creatinine Glucose POC Glucose 142 H 49 L 162 H Hemoglobin A1c Lactic Acid Calcium Phosphorus AST Alkaline Phosphatase NT-Pro-B Natriuret Pep Total Protein Albumin 10/10/18 10/10/18 10/10/18 21:45 22:19 23:50 WBC RBC Hgb Hct MCH RDW Lymph % (Auto) [place] % (Auto) Lymph # [place] # Seg Neutrophils % Seg Neutrophils # PT INR APTT Heparin Anti-Xa Level POC ABG pH 7.334 L POC ABG pCO2 47.0 H POC ABG pO2 53 L 79 L Sodium Potassium Chloride Carbon Dioxide BUN Creatinine Glucose POC Glucose 185 H Hemoglobin A1c Lactic Acid Calcium Phosphorus AST Alkaline Phosphatase NT-Pro-B Natriuret Pep Total Protein Albumin 10/11/18 10/11/18 10/11/18 05:00 06:41 07:17 WBC RBC Hgb Hct MCH RDW Lymph % (Auto) [place] % (Auto) Lymph # [place] # Seg Neutrophils % Seg Neutrophils # PT INR APTT Heparin Anti-Xa Level POC ABG pH POC ABG pCO2 POC ABG pO2 Sodium Potassium Chloride Carbon Dioxide BUN Creatinine 1.7 H Glucose 43 L POC Glucose 48 L 129 H Hemoglobin A1c Lactic Acid Calcium 7.7 L Phosphorus AST Alkaline Phosphatase NT-Pro-B Natriuret Pep Total Protein Albumin 10/11/18 10/11/18 10/11/18 11:14 13:32 14:25 WBC RBC 3.32 L Hgb 8.2 L Hct 26.4 L MCH 25 L RDW 21.6 H Lymph % (Auto) [place] % (Auto) Lymph # [place] # Seg Neutrophils % Seg Neutrophils # PT 21.7 H INR 1.76 H APTT 50.5 H Heparin Anti-Xa Level POC ABG pH POC ABG pCO2 POC ABG pO2 Sodium Potassium Chloride Carbon Dioxide BUN Creatinine Glucose POC Glucose 138 H Hemoglobin A1c Lactic Acid Calcium Phosphorus AST Alkaline Phosphatase NT-Pro-B Natriuret Pep Total Protein Albumin 10/11/18 10/11/18 10/11/18 14:25 15:41 17:31 WBC RBC Hgb Hct MCH RDW Lymph % (Auto) [place] % (Auto) Lymph # [place] # Seg Neutrophils % Seg Neutrophils # PT 20.6 H INR 1.65 H APTT 54.9 H Heparin Anti-Xa Level POC ABG pH POC ABG pCO2 POC ABG pO2 53 L Sodium Potassium Chloride Carbon Dioxide BUN Creatinine Glucose POC Glucose 133 H Hemoglobin A1c Lactic Acid Calcium Phosphorus AST Alkaline Phosphatase NT-Pro-B Natriuret Pep Total Protein Albumin 10/12/18 10/12/18 10/12/18 00:30 03:56 04:25 WBC RBC Hgb Hct MCH RDW Lymph % (Auto) [place] % (Auto) Lymph # [place] # Seg Neutrophils % Seg Neutrophils # PT INR APTT Heparin Anti-Xa Level POC ABG pH 7.514 H POC ABG pCO2 31.2 L POC ABG pO2 Sodium Potassium Chloride Carbon Dioxide BUN Creatinine 1.6 H Glucose 287 H POC Glucose 353 H Hemoglobin A1c Lactic Acid Calcium 8.0 L Phosphorus AST Alkaline Phosphatase NT-Pro-B Natriuret Pep Total Protein Albumin 10/12/18 10/12/18 10/12/18 04:49 12:13 17:53 WBC RBC Hgb Hct MCH RDW Lymph % (Auto) [place] % (Auto) Lymph # [place] # Seg Neutrophils % Seg Neutrophils # PT INR APTT Heparin Anti-Xa Level POC ABG pH POC ABG pCO2 POC ABG pO2 Sodium Potassium Chloride Carbon Dioxide BUN Creatinine Glucose POC Glucose 297 H 290 H 211 H Hemoglobin A1c Lactic Acid Calcium Phosphorus AST Alkaline Phosphatase NT-Pro-B Natriuret Pep Total Protein Albumin 10/12/18 10/12/18 10/13/18 18:57 21:35 04:50 WBC 11.8 H RBC 3.08 L Hgb 7.4 L Hct 24.2 L MCH 24 L RDW 21.5 H Lymph % (Auto) [place] % (Auto) Lymph # [place] # Seg Neutrophils % Seg Neutrophils # PT INR APTT Heparin Anti-Xa Level 1.74 H POC ABG pH 7.497 H POC ABG pCO2 33.2 L POC ABG pO2 71 L Sodium Potassium Chloride Carbon Dioxide BUN Creatinine Glucose POC Glucose Hemoglobin A1c Lactic Acid Calcium Phosphorus AST Alkaline Phosphatase NT-Pro-B Natriuret Pep Total Protein Albumin 10/13/18 10/13/18 10/13/18 05:25 05:25 05:37 WBC 12.1 H RBC 3.02 L Hgb 7.4 L Hct 23.7 L MCH 25 L RDW 21.0 H Lymph % (Auto) 9.6 L [place] % (Auto) 10.0 H Lymph # [place] # 1.2 H Seg Neutrophils % 76.2 H Seg Neutrophils # 9.2 H PT INR APTT Heparin Anti-Xa Level POC ABG pH POC ABG pCO2 POC ABG pO2 Sodium Potassium Chloride Carbon Dioxide BUN Creatinine 1.6 H Glucose 175 H POC Glucose 165 H Hemoglobin A1c Lactic Acid Calcium 8.3 L Phosphorus AST Alkaline Phosphatase NT-Pro-B Natriuret Pep Total Protein Albumin 10/13/18 10/13/18 10/13/18 06:45 11:12 17:19 WBC RBC Hgb Hct MCH RDW Lymph % (Auto) [place] % (Auto) Lymph # [place] # Seg Neutrophils % Seg Neutrophils # PT 17.4 H INR 1.34 H APTT Heparin Anti-Xa Level POC ABG pH POC ABG pCO2 POC ABG pO2 Sodium Potassium Chloride Carbon Dioxide BUN Creatinine Glucose POC Glucose 223 H 129 H Hemoglobin A1c Lactic Acid Calcium Phosphorus AST Alkaline Phosphatase NT-Pro-B Natriuret Pep Total Protein Albumin 10/13/18 10/14/18 10/14/18 23:39 05:01 06:14 WBC RBC Hgb Hct MCH RDW Lymph % (Auto) [place] % (Auto) Lymph # [place] # Seg Neutrophils % Seg Neutrophils # PT INR APTT Heparin Anti-Xa Level POC ABG pH POC ABG pCO2 POC ABG pO2 Sodium Potassium Chloride Carbon Dioxide BUN Creatinine 1.5 H Glucose 264 H POC Glucose 171 H 226 H Hemoglobin A1c Lactic Acid Calcium 8.0 L Phosphorus AST Alkaline Phosphatase NT-Pro-B Natriuret Pep Total Protein Albumin 10/14/18 06:14 WBC RBC Hgb Hct MCH RDW Lymph % (Auto) [place] % (Auto) Lymph # [place] # Seg Neutrophils % Seg Neutrophils # PT 22.1 H INR 1.80 H APTT Heparin Anti-Xa Level POC ABG pH POC ABG pCO2 POC ABG pO2 Sodium Potassium Chloride Carbon Dioxide BUN Creatinine Glucose POC Glucose Hemoglobin A1c Lactic Acid Calcium Phosphorus AST Alkaline Phosphatase NT-Pro-B Natriuret Pep Total Protein Albumin Allied health notes reviewed: nursing
[2018-10-14] MEDS: PROTONIX IV SCH (10:00)
[2018-10-14] MEDS: LANTUS SUB-Q SCH (10:00)
[2018-10-14] MEDS: SODIUM CHLORIDE FLUSH SYRINGE 10 ML IV SCH ×2 (10:00→22:16)
[2018-10-14] MEDS: LASIX IV SCH (10:00)
[2018-10-14] MEDS ORDERED: LOPRESSOR IV ONE (10:22)
--- NOTE | 2018-10-14 10:54 | Progress Note ---
Assessment and Plan Pt extubated, lethargic. Hypertensive and in sinus tachycardia on telemetry. Lopressor increased per nephrology. Consider addition of ACEI/ARB if okay per nephrology. Also noted to have mild leukocytosis with low grade fever. Blood cultures negative. ID team following for sepsis and pneumonia. Cont IV lasix BID, heprin gtt, PO coumadin with tx INR 2.5 - 3.5. The patient has been seen in conjunction with Dr. Megan Mora who agrees with the assessment and plan of care. - Patient Problems (1) Altered mental status Current Visit: Yes Status: Acute (2) Seizures Current Visit: Yes Status: Suspected (3) Hypoglycemia Current Visit: Yes Status: Acute (4) Acute respiratory failure Current Visit: Yes Status: Acute (5) Pneumonia Current Visit: Yes Status: Acute Qualifiers: Pneumonia type: due to unspecified organism Laterality: right Lung location: middle lobe of lung Qualified Code(s): J18.1 - Lobar pneumonia, unspecified organism (6) Sepsis Current Visit: Yes Status: Suspected Qualifiers: Sepsis type: sepsis due to unspecified organism Qualified Code(s): A41.9 - Sepsis, unspecified organism (7) CAD (coronary artery disease) Current Visit: Yes Status: Chronic (8) History of coronary artery bypass graft Current Visit: Yes Status: Chronic (9) H/O mitral valve replacement with mechanical valve Current Visit: Yes Status: Chronic (10) Heart failure with reduced ejection fraction Current Visit: Yes Status: Acute (11) Acute on chronic renal failure Current Visit: Yes Status: Acute (12) Anemia Current Visit: Yes Status: Chronic (13) History of GI bleed Current Visit: Yes Status: Chronic (14) Diabetes Current Visit: Yes Status: Chronic Subjective Date of service: 10/14/18 Principal diagnosis: Ac hypoxemic resp failure; Seizures (?hypoglycemic); Ac encephalopathy(T/M) Interval history: pt extubated, on O2 via ventimask, lethargic. heparin gtt infusing. Hypertensive with sinus tachycardia on telemetry. Objective Last Vital Signs Temp 99.7 F H 10/14/18 08:00 Pulse 126 H 10/14/18 08:35 Resp 17 10/14/18 05:01 BP 213/187 10/14/18 08:35 Pulse Ox 98 10/14/18 07:47 - Physical Examination General: No Apparent Distress, Other (lethargic) HEENT: Positive: PERRL Neck: Positive: neck supple Cardiac: Positive: Regular Rhythm, S1/S2, Tachycardia Lungs: Positive: Decreased Breath Sounds, Oxygen Neuro: Positive: Grossly Intact (lethargic) Abdomen: Negative: Tender Skin: Negative: Rash - Labs and Meds Coagulation 10/14/18 Range/Units 06:14 PT 22.1 H (12.2-14.9) Sec. INR 1.80 H (0.87-1.13) Comprehensive Metabolic Panel 10/14/18 Range/Units 06:14 Sodium 140 (137-145) mmol/L Potassium 4.6 (3.6-5.0) mmol/L Chloride 100.4 (98-107) mmol/L Carbon Dioxide 22 (22-30) mmol/L BUN 14 (7-17) mg/dL Creatinine 1.5 H (0.7-1.2) mg/dL Glucose 264 H (65-100) mg/dL Calcium 8.0 L (8.4-10.2) mg/dL - Imaging and Cardiology EKG: report reviewed, image reviewed Echo: report reviewed (07/2018: EF 40%, mild to mod LVH, LA and RA dilated, mod TR and FL, mechanical valve in mitral position that appears to be functioning properly. 10/2018: EF 35-40%, mod LVH, abnormal diastolic function, LA severely dilated, mechanical MV appears well seated with normal function, mod pulm HTN. 11/2016 showed EF 40-45%, abnormal diastolic function, trace MR, mild TR, RVSP 36mmHg. ) - Telemetry EKG Rhythm: Sinus Tachycardia - EKG Sinus rhythms and dysrhythmias: sinus rhythm Chamber hypertrophy or enlargement: left ventricular hypertro - Allied health notes Allied health notes reviewed: nursing
--- NOTE | 2018-10-14 14:11 | Progress Note ---
Assessment and Plan Assessment and plan: 48 year old woman with history of coronary artery disease, status post cabbage, diabetes, hypertension who was brought to the emergency room for altered mental status. She was found to have hypoglycemia, she was also having convulsions at the time of admission. The patient was intubated, sp dextrose she was put on the ventilator she was found to have pneumonia and CHF flare and started on antibiotics. patient has history of MV replacement and was on anticoagulation. Pneumonia, severe sepsis - Patient was on IV antibiotics and discontinued yesterday per - Chest x-ray right lower lobe infiltrates, right pleural effusion - Lactic acid is improving Acute respiratory failure Was intubated and on mechanical ventilation - Patient was off sedation, alert and oriented - On SBT status epilepticus; Seizures when most likely due to hypoglycemia -Treated with dextrose -EEG, neurology consult appreciated Acute on chronic systolic CHF EF 40%, dilated ventricles - on bumex, optimize meds, cardiology consult History of mitral valve replacement - patient is on heparin and warfarin - will follow INR - Cardiology is on board 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 Extubated 10/14/18. Sinus tachycardia; her metoprolol is increased. Disposition; transfer her to [facility]. History Interval history: Patient was seen and evaluated this morning, patient was extubated on 10/13/18 Hospitalist Physical - Physical exam Narrative exam: Patient was extubated yesterday and on face mask. The patient appeared well nourished and normally developed. Vital signs as documented. Head exam is unremarkable. No scleral icterus . Neck is without jugular venous distension, thyromegaly, or carotid bruits. Lungs are clear to auscultation. Cardiac exam reveals regular rate and Rhythm. Abdominal exam reveals normal bowel sounds Extremities are nonedematous. 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 she said she is ok, no pain. - Constitutional Vitals: Temp Pulse Resp BP Pulse Ox 98.8 F 117 H 14 141/95 90 10/14/18 12:00 10/14/18 12:01 10/14/18 12:01 10/14/18 12:01 10/14/18 12:01 General appearance: Present: other (intubated, eyes open, no purposeful response to commands) Results - Labs CBC & Chem 7: 10/13/18 05:25 10/14/18 06:14 Labs: Laboratory Last Values WBC 12.1 K/mm3 (4.5-11.0) H 10/13/18 05:25 RBC 3.02 M/mm3 (3.65-5.03) L 10/13/18 05:25 Hgb 7.4 gm/dl (10.1-14.3) L 10/13/18 05:25 Hct 23.7 % (30.3-42.9) L 10/13/18 05:25 MCV 79 fl (79-97) 10/13/18 05:25 MCH 25 pg (28-32) L 10/13/18 05:25 MCHC 31 % (30-34) 10/13/18 05:25 RDW 21.0 % (13.2-15.2) H 10/13/18 05:25 Plt Count 284 K/mm3 (140-440) 10/13/18 05:25 Lymph % (Auto) 9.6 % (13.4-35.0) L 10/13/18 05:25 [place] % (Auto) 10.0 % (0.0-7.3) H 10/13/18 05:25 Eos % (Auto) 3.7 % (0.0-4.3) 10/13/18 05:25 Baso % (Auto) 0.5 % (0.0-1.8) 10/13/18 05:25 Lymph # 1.2 K/mm3 (1.2-5.4) 10/13/18 05:25 [place] # 1.2 K/mm3 (0.0-0.8) H 10/13/18 05:25 Eos # 0.4 K/mm3 (0.0-0.4) 10/13/18 05:25 Baso # 0.1 K/mm3 (0.0-0.1) 10/13/18 05:25 Seg Neutrophils % 76.2 % (40.0-70.0) H 10/13/18 05:25 Seg Neutrophils # 9.2 K/mm3 (1.8-7.7) H 10/13/18 05:25 PT 22.1 Sec. (12.2-14.9) H 10/14/18 06:14 INR 1.80 (0.87-1.13) H 10/14/18 06:14 APTT 54.9 Sec. (24.2-36.6) H 10/11/18 14:25 Heparin Anti-Xa Level 0.49 U.I./ml (0.3-0.7) 10/14/18 06:14 POC ABG pH 7.426 (7.35-7.45) 10/13/18 09:41 POC ABG pCO2 37.2 (35-45) 10/13/18 09:41 POC ABG pO2 71 (80-105) L 10/13/18 04:50 POC ABG HCO3 24.4 (22-26 mml/L) 10/13/18 09:41 POC ABG Total CO2 26 (23-27mmol/L) 10/13/18 09:41 POC ABG O2 Sat 70 10/13/18 09:41 POC ABG Base Excess 0 ((-2) - (+3)mmol/L) 10/13/18 09:41 30 % 10/13/18 09:41 Sodium 140 mmol/L (137-145) 10/14/18 06:14 Potassium 4.6 mmol/L (3.6-5.0) 10/14/18 06:14 Chloride 100.4 mmol/L (98-107) 10/14/18 06:14 Carbon Dioxide 22 mmol/L (22-30) 10/14/18 06:14 22 mmol/L 10/14/18 06:14 BUN 14 mg/dL (7-17) 10/14/18 06:14 1.5 mg/dL (0.7-1.2) H 10/14/18 06:14 Estimated GFR 45 ml/min 10/14/18 06:14 9 % 10/14/18 06:14 Glucose 264 mg/dL (65-100) H 10/14/18 06:14 POC Glucose 403 (70-105) H 10/14/18 12:24 10.2 % (4-6) H 10/07/18 22:08 Lactic Acid 1.50 mmol/L (0.7-2.0) 10/08/18 17:09 Calcium 8.0 mg/dL (8.4-10.2) L 10/14/18 06:14 Phosphorus 7.40 mg/dL (2.5-4.5) H 10/07/18 22:08 Magnesium 1.90 mg/dL (1.7-2.3) 10/08/18 04:05 0.20 mg/dL (0.1-1.2) 10/08/18 04:05 < 0.2 mg/dL (0-0.2) 10/07/18 02:43 0.5 mg/dL 10/07/18 02:43 AST 26 units/L (5-40) 10/08/18 04:05 ALT 22 units/L (7-56) 10/08/18 04:05 155 units/L (35-129) H 10/08/18 04:05 40.0 umol/L (25-60) 10/07/18 02:43 < 0.010 ng/mL (0.00-0.029) 10/07/18 08:59 0.20 mg/dL (0.00-1.30) 10/07/18 14:55 NT-Pro-B Natriuret Pep 2865 pg/mL (0-450) H 10/09/18 03:20 5.2 g/dL (6.3-8.2) L D 10/08/18 04:05 2.6 g/dL (3.9-5) L 10/08/18 04:05 1.0 % 10/08/18 04:05 Straw (Yellow) 10/07/18 02:34 Clear (Clear) 10/07/18 02:34 7.0 (5.0-7.0) 10/07/18 02:34 Ur Specific [place] 1.006 (1.003-1.030) 10/07/18 02:34 100 mg/dl mg/dL (Negative) 10/07/18 02:34 Neg mg/dL (Negative) 10/07/18 02:34 Neg mg/dL (Negative) 10/07/18 02:34 Sm (Negative) 10/07/18 02:34 Neg (Negative) 10/07/18 02:34 Neg (Negative) 10/07/18 02:34 < 2.0 mg/dL (<2.0) 10/07/18 02:34 Ur Leukocyte Esterase Tr (Negative) 10/07/18 02:34 1.0 /HPF (0.0-6.0) 10/07/18 02:34 5.0 /HPF (0.0-6.0) 10/07/18 02:34 U Epithel Cells (Auto) 1.0 /HPF (0-13.0) 10/07/18 02:34 Hyaline Casts 3 /LPF 10/07/18 02:34 Few /HPF 10/07/18 02:34 Presumptive negative 10/07/18 02:34 Presumptive negative 10/07/18 02:34 Ur Barbiturates Screen Presumptive negative 10/07/18 02:34 Ur Phencyclidine Scrn Presumptive negative 10/07/18 02:34 Ur Amphetamines Screen Presumptive negative 10/07/18 02:34 U Benzodiazepines Scrn Presumptive negative 10/07/18 02:34 Presumptive negative 10/07/18 02:34 U Marijuana (THC) Screen Presumptive positive 10/07/18 02:34 Disclamer 10/07/18 02:34 Active Medications - Current Medications Current Medications: Generic Name Dose Route Start Last Admin Trade Name Freq PRN Reason Stop Dose Admin Acetaminophen 650 mg 10/07/18 04:59 10/12/18 12:47 Tylenol PO 650 mg Q4H PRN Administration Pain MILD(1-3)/Fever >100.5/[id number] Lipase/Protease/Amylase 1 each 10/08/18 10:00 Pancreangelica Arredondo 10,500 Unit FEEDTUBE PRN PRN For Clogged Feeding Tube Dextrose 50 ml 10/07/18 20:42 10/10/18 05:46 D50w (25gm) Syringe IV 50 ml PRN PRN Administration Hypoglycemia Fentanyl 50 mcg 10/07/18 09:07 10/12/18 09:05 Sublimaze IV 50 mcg Q10MIN PRN Administration ANALGESIA Hydralazine HCl 10 mg 10/07/18 05:07 10/14/18 08:35 Apresoline IV 10 mg Q4H PRN Administration Blood Pressure Hydrophilic Ointment 1 applic 10/07/18 02:40 Vaseline Lip Therapy TP Q2HR PRN Dry Lips Heparin Sodium/Sodium Chloride 25,000 unit in 500 mls @ 20 mls/hr 10/11/18 15:00 10/13/18 21:47 Heparin/ 0.45% Nacl-25,000 Unit/500 Ml IV 850 units/hr TITR ULI 17 mls/hr Administration Protocol 1,000 UNITS/HR Insulin Glargine 5 units 10/12/18 12:00 10/14/18 10:00 Lantus SUB-Q 5 units DAILY ULI Administration Insulin Human Lispro 0 unit 10/09/18 00:00 10/14/18 12:00 Humalog SUB-Q 5 unit Q6HR ULI Administration Protocol Lansoprazole 30 mg 10/15/18 10:00 Prevacid Solutab FEEDTUBE QDAY ULI Metoclopramide HCl 10 mg 10/11/18 13:00 10/12/18 19:32 Reglan IV 10 mg Q6HR PRN Administration Nausea And Vomiting Metoprolol Tartrate 50 mg 10/14/18 08:40 Lopressor PO TID ULI Midazolam HCl 2 mg 10/07/18 06:03 10/12/18 04:21 Versed IV 2 mg Q10MIN PRN Administration Sedation Multi-Ingred Cream/Lotion/Oil/Oint 1 applic 10/07/18 02:40 Artificial Tears Ophth Oint OU Q4HR PRN Dry Eye(s) Ondansetron HCl 4 mg 10/07/18 04:59 Zofran IV Q8H PRN N/V unrelieved by Kojo Quetiapine Fumarate 100 mg 10/09/18 22:00 10/13/18 21:28 Seroquel PO 100 mg QHS ULI Administration Simple Syrup 15 ml 10/08/18 10:00 Simple Syrup FEEDTUBE PRN PRN Hypoglycemia Simple Syrup 30 ml 10/08/18 10:00 10/09/18 01:09 Simple Syrup FEEDTUBE 30 ml PRN PRN Administration Hypoglycemia Sodium Bicarbonate 325 mg 10/08/18 10:00 Sodium Bicarbonate FEEDTUBE PRN PRN For Clogged Feeding Tube Sodium Chloride 10 ml 10/07/18 10:00 10/14/18 10:00 Sodium Chloride Flush Syringe 10 Ml IV 10 ml BID ULI Administration Sodium Chloride 10 ml 10/07/18 04:59 Sodium Chloride Flush Syringe 10 Ml IV PRN PRN LINE FLUSH Warfarin Sodium 7.5 mg 10/14/18 17:00 Coumadin PO DAILY@[facility] Nutrition/Malnutrition Assess - Dietary Evaluation Nutrition/Malnutrition Findings: Nutrition Notes Start: 10/07/18 12:17 Freq: Status: Active Protocol: Document 10/13/18 09:36 CP (Rec: 10/13/18 09:38 CP [id number]) Co-Sign 10/13/18 09:36 LP Nutrition Notes Initial or Follow up Brief Note Subjective/Other Information F/U for TF to start and pt screened for DNI. TF was infusing at goal rate during time of visit. Pt will be extubated today as discussed in rounds. Nutrition Intervention Follow-Up By: 10/17/18 Additional Comments F/U: Diet advancement/coumadin
[2018-10-14] MEDS ORDERED: COUMADIN PO SCH (17:00)
[2018-10-15] MEDS: HumaLOG SUB-Q SCH ×2 (00:27→06:00)
[2018-10-15] MEDS: HEPARIN/ 0.45% NACL-25,000 UNIT/500 ML 25,000 UNIT/500 ML BAG IV SCH (06:38)
[2018-10-15 07:50] LABS: Calcium 7.6 mg/dL (8.4-10.2)
[2018-10-15 07:51] LABS: INR 4.52 (0.87-1.13)
[2018-10-15 08:56] LABS: Hematocrit 18.5 % (30.3-42.9); Hemoglobin 5.8 gm/dl (10.1-14.3)
[2018-10-15] MEDS: LOPRESSOR PO SCH ×3 (09:00→20:00)
[2018-10-15] MEDS ORDERED: NACL 0.9% 500 ML 500 ML IV ONE (09:47)
[2018-10-15] MEDS: PREVACID SOLUTAB FEEDTUBE SCH (10:00)
--- NOTE | 2018-10-15 10:07 | Progress Note ---
Assessment and Plan Acute hypoxemic respiratory failure, on mechanical ventilatory support. Symptomatic hypoglycemia. Seizures, possibly related to the hypoglycemia. Acute encephalopathy, toxic metabolic. Mild Hyponatremia Mechanical heart valve (mitral) History of cardiomyopathy. (EF 40%) Right pleural effusion. Pulmonary edema bilateral. History of diabetes. Hypertension. Coagulopathy that is probably related to her Coumadin use at home. - follow H&H post transfusion; if inappropriate rise will consider reversal of warfarin - continue holding anticoagulation - continue BIPAP qhs - continue metoprolol for tachycardia - discontinued Reglan re: loose stools - cardiology evaluation ongoing (input appreciated) - G.I. cleared her for anticoagulation - optimize cardiac function per cardiology team - s/p AB's course - continue bronchodilators with pulmonary hygiene per RT - continue GI prophylaxis - continue to wean supplemental oxygen to keep O2 sats > 90% - Continue cardioprotective measures - Replete electrolytes as indicated - Monitor renal indices closely - Avoid nephrotoxic agents, adjust all medications for CrCL - contiinue strict intake and output monitoring - advance diet per ST - Accuchecks with glycemic control. Target glucose of 140-180 mg/dL - Maintenance of sleep -wake cycle - Mobility as tolerated by hemodynamics - Influenza and pneumonia vaccination per protocol CODE STATUS: FULL CODE Subjective Date of service: 10/15/18 Principal diagnosis: Ac hypoxemic resp failure; Seizures (?hypoglycemic); Ac encephalopathy(T/M) Interval history: Patient is seen today for: Acute hypoxemic respiratory failure, on mechanical ventilatory support; Symptomatic hypoglycemia; Seizures, possibly related to the hypoglycemia; Acute encephalopathy, toxic metabolic; Mild Hyponatremi; History of cardiomyopathy. (EF 40%) Seen and examined at bedside; 24hour events reviewed; nursing and respiratory care staff consulted; no adverse overnight events reported to me; resting peacefully in bed; still with mild AMS; denies acute chest pains; H&H dropped to 5.8 and receiving 2 units PRBC's; no gross external bleding reported but INR is supratherapeutic Objective Vital Signs - 12hr 10/14/18 10/14/18 10/14/18 22:30 23:00 23:30 Temperature Pulse Rate 122 H 117 H 116 H Pulse Rate [ Right Dorsalis Pedis] Respiratory 19 26 H 33 H Rate Blood Pressure 154/80 163/90 160/85 O2 Sat by Pulse 96 95 96 Oximetry 10/15/18 10/15/1819 00:00 00:30 01:00 Temperature 99.2 F Pulse Rate 106 H 110 H 110 H Pulse Rate [ 119 H Right Dorsalis Pedis] Respiratory 26 H 22 29 H Rate Blood Pressure 163/90 136/48 136/48 O2 Sat by Pulse 97 98 98 Oximetry 10/15/18 10/15/18 10/15/18 01:30 02:00 02:30 Temperature Pulse Rate 106 H 107 H 107 H Pulse Rate [ Right Dorsalis Pedis] Respiratory 30 H 26 H 33 H Rate Blood Pressure 98/43 91/48 103/58 O2 Sat by Pulse 94 68 L 98 Oximetry 10/15/18 10/15/18 10/15/18 03:00 03:30 04:00 Temperature Pulse Rate 107 H 115 H 108 H Pulse Rate [ 114 H Right Dorsalis Pedis] Respiratory 32 H 24 35 H Rate Blood Pressure 99/54 138/72 125/65 O2 Sat by Pulse 98 91 99 Oximetry 10/15/18 10/15/18 10/15/18 04:30 05:00 05:30 Temperature Pulse Rate 107 H 109 H 104 H Pulse Rate [ Right Dorsalis Pedis] Respiratory 33 H 34 H 29 H Rate Blood Pressure 113/64 113/64 121/61 O2 Sat by Pulse 99 100 100 Oximetry 10/15/18 10/15/18 10/15/18 06:00 06:30 07:00 Temperature Pulse Rate 109 H 106 H 114 H Pulse Rate [ Right Dorsalis Pedis] Respiratory 22 33 H 25 H Rate Blood Pressure 121/61 121/61 121/61 O2 Sat by Pulse 96 99 95 Oximetry Constitutional: no acute distress, other (middle aged AAF, normocephalic and with mildly increased resp effort at rest) Eyes: non-icteric ENT: oropharynx moist, other (extubated) Neck: supple, no lymphadenopathy, no JVD Effort: mildly labored Ascultation: Bilateral: diminished breath sounds (bases), rales Percussion: Bilateral: not dull Cardiovascular: regular rate and rhythm, other (+ metalic valve click) Gastrointestinal: normoactive bowel sounds, soft, non-tender, non-distended, other (No HSM) Integumentary: normal Extremities: no cyanosis, no edema, pulses normal, no ischemia or petechiae Neurologic: non-focal exam (grossly), pupils equal and round, CN II-XII normal, motor strength normal and, other (somnolent) Psychiatric: other (flat affect) CBC and BMP: 10/16/18 10:18 10/16/18 10:18 ABG, PT/INR, D-dimer: ABG POC ABG pH 7.426 (7.35-7.45) 10/13/18 09:41 POC ABG pCO2 37.2 (35-45) 10/13/18 09:41 POC ABG HCO3 24.4 (22-26 mml/L) 10/13/18 09:41 POC ABG Total CO2 26 (23-27mmol/L) 10/13/18 09:41 POC ABG O2 Sat 70 10/13/18 09:41 PT/INR, D-dimer PT 46.1 Sec. (12.2-14.9) H 10/15/18 07:00 INR 4.52 (0.87-1.13) H 10/15/18 07:00 Abnormal lab findings: Abnormal Labs 10/07/18 10/07/18 10/07/18 02:20 02:43 02:43 WBC RBC Hgb Hct MCH 25 L RDW 21.5 H Lymph % (Auto) Foard % (Auto) Lymph # 0.9 L Foard # Seg Neutrophils % 78.4 H Seg Neutrophils # PT INR APTT Heparin Anti-Xa Level POC ABG pH POC ABG pCO2 POC ABG pO2 Sodium Potassium Chloride 108.0 H Carbon Dioxide 21 L BUN Creatinine 1.5 H Glucose 115 H POC Glucose 136 H Hemoglobin A1c Lactic Acid Calcium Phosphorus AST 51 H Alkaline Phosphatase 257 H NT-Pro-B Natriuret Pep Total Protein Albumin 10/07/18 10/07/18 10/07/18 02:43 04:32 05:12 WBC RBC Hgb Hct MCH RDW Lymph % (Auto) [place] % (Auto) Lymph # Foard # Seg Neutrophils % Seg Neutrophils # PT 25.4 H INR 2.14 H APTT Heparin Anti-Xa Level POC ABG pH POC ABG pCO2 33.6 L POC ABG pO2 69 L Sodium Potassium Chloride Carbon Dioxide BUN Creatinine Glucose POC Glucose Hemoglobin A1c Lactic Acid 2.40 H* Calcium Phosphorus AST Alkaline Phosphatase NT-Pro-B Natriuret Pep Total Protein Albumin 05/08/2310/07/18 10/07/18 06:28 18:39 20:26 WBC RBC Hgb Hct MCH RDW Lymph % (Auto) [place] % (Auto) Lymph # Foard # Seg Neutrophils % Seg Neutrophils # PT INR APTT Heparin Anti-Xa Level POC ABG pH POC ABG pCO2 POC ABG pO2 Sodium Potassium Chloride Carbon Dioxide BUN Creatinine Glucose POC Glucose 164 H 440 H > 500 H Hemoglobin A1c Lactic Acid Calcium Phosphorus AST Alkaline Phosphatase NT-Pro-B Natriuret Pep Total Protein Albumin 10/07/18 10/07/18 10/07/18 20:28 21:53 22:08 WBC RBC Hgb Hct MCH RDW Lymph % (Auto) [place] % (Auto) Lymph # Foard # Seg Neutrophils % Seg Neutrophils # PT INR APTT Heparin Anti-Xa Level POC ABG pH POC ABG pCO2 POC ABG pO2 Sodium 136 L D Potassium 6.4 H* D Chloride Carbon Dioxide 10 L D BUN 30 H Creatinine 2.0 H Glucose 544 H* POC Glucose 483 H > 500 H Hemoglobin A1c Lactic Acid Calcium 7.0 L D Phosphorus AST Alkaline Phosphatase NT-Pro-B Natriuret Pep Total Protein Albumin 10/07/18 10/07/18 10/07/18 22:08 22:08 22:56 WBC RBC Hgb Hct MCH RDW Lymph % (Auto) [place] % (Auto) Lymph # Foard # Seg Neutrophils % Seg Neutrophils # PT INR APTT Heparin Anti-Xa Level POC ABG pH POC ABG pCO2 POC ABG pO2 Sodium Potassium Chloride Carbon Dioxide BUN Creatinine Glucose POC Glucose 462 H Hemoglobin A1c 10.2 H Lactic Acid Calcium Phosphorus 7.40 H AST Alkaline Phosphatase NT-Pro-B Natriuret Pep Total Protein Albumin 10/07/18 10/08/18 10/08/18 23:39 00:58 02:09 WBC RBC Hgb Hct MCH RDW Lymph % (Auto) [place] % (Auto) Lymph # Foard # Seg Neutrophils % Seg Neutrophils # PT INR APTT Heparin Anti-Xa Level POC ABG pH POC ABG pCO2 POC ABG pO2 Sodium Potassium Chloride Carbon Dioxide BUN Creatinine Glucose POC Glucose 396 H 375 H 285 H Hemoglobin A1c Lactic Acid Calcium Phosphorus AST Alkaline Phosphatase NT-Pro-B Natriuret Pep Total Protein Albumin 10/08/18 10/08/18 10/08/18 03:10 03:33 04:05 WBC RBC Hgb Hct MCH RDW Lymph % (Auto) [place] % (Auto) Lymph # Foard # Seg Neutrophils % Seg Neutrophils # PT INR APTT Heparin Anti-Xa Level POC ABG pH 7.243 L POC ABG pCO2 33.8 L POC ABG pO2 126 H Sodium Potassium 5.3 H Chloride 110.7 H Carbon Dioxide 14 L BUN 33 H Creatinine 2.2 H Glucose 193 H POC Glucose 251 H Hemoglobin A1c Lactic Acid Calcium 7.0 L Phosphorus AST Alkaline Phosphatase 155 H NT-Pro-B Natriuret Pep Total Protein 5.2 L D Albumin 2.6 L 10/08/18 10/08/18 10/08/18 04:05 04:05 04:09 WBC 11.8 H RBC 3.32 L Hgb 8.3 L Hct 27.5 L D MCH 25 L RDW 22.0 H Lymph % (Auto) 6.8 L [place] % (Auto) 12.0 H Lymph # 0.8 L Foard # 1.4 H Seg Neutrophils % 80.6 H Seg Neutrophils # 9.5 H PT INR APTT Heparin Anti-Xa Level POC ABG pH POC ABG pCO2 POC ABG pO2 Sodium Potassium Chloride Carbon Dioxide BUN Creatinine Glucose POC Glucose 175 H Hemoglobin A1c Lactic Acid 3.70 H* Calcium Phosphorus AST Alkaline Phosphatase NT-Pro-B Natriuret Pep Total Protein Albumin 10/08/18 10/08/18 10/08/18 05:07 06:05 07:14 WBC RBC Hgb Hct MCH RDW Lymph % (Auto) [place] % (Auto) Lymph # Foard # Seg Neutrophils % Seg Neutrophils # PT INR APTT Heparin Anti-Xa Level POC ABG pH POC ABG pCO2 POC ABG pO2 Sodium Potassium Chloride Carbon Dioxide BUN Creatinine Glucose POC Glucose 125 H 122 H 147 H Hemoglobin A1c Lactic Acid Calcium Phosphorus AST Alkaline Phosphatase NT-Pro-B Natriuret Pep Total Protein Albumin 10/08/18 10/08/18 10/08/18 07:22 08:09 08:47 WBC RBC Hgb Hct MCH RDW Lymph % (Auto) [place] % (Auto) Lymph # [place]oard # Seg Neutrophils % Seg Neutrophils # PT INR APTT Heparin Anti-Xa Level POC ABG pH POC ABG pCO2 POC ABG pO2 Sodium Potassium 5.2 H Chloride 112.4 H Carbon Dioxide 17 L BUN 32 H Creatinine 2.1 H Glucose 148 H POC Glucose 134 H 148 H Hemoglobin A1c Lactic Acid Calcium 6.6 L Phosphorus AST Alkaline Phosphatase NT-Pro-B Natriuret Pep Total Protein Albumin 10/08/18 10/08/18 10/08/18 10:21 13:29 14:21 WBC RBC Hgb Hct MCH RDW Lymph % (Auto) [place] % (Auto) Lymph # Foard # Seg Neutrophils % Seg Neutrophils # PT INR APTT Heparin Anti-Xa Level POC ABG pH POC ABG pCO2 POC ABG pO2 Sodium Potassium Chloride Carbon Dioxide BUN Creatinine Glucose POC Glucose 115 H 109 H 118 H Hemoglobin A1c Lactic Acid Calcium Phosphorus AST Alkaline Phosphatase NT-Pro-B Natriuret Pep Total Protein Albumin 10/08/18 10/08/18 10/08/18 15:27 17:00 17:00 WBC 11.3 H RBC 3.21 L Hgb 7.9 L Hct 25.7 L MCH 25 L RDW 21.8 H Lymph % (Auto) 8.5 L [place] % (Auto) 7.7 H Lymph # 1.0 L Foard # 0.9 H Seg Neutrophils % 82.8 H Seg Neutrophils # 9.3 H PT INR APTT Heparin Anti-Xa Level POC ABG pH POC ABG pCO2 POC ABG pO2 Sodium Potassium Chloride Carbon Dioxide BUN Creatinine Glucose POC Glucose 129 H Hemoglobin A1c Lactic Acid Calcium Phosphorus AST Alkaline Phosphatase NT-Pro-B Natriuret Pep 3097 H Total Protein Albumin 10/08/18 10/08/18 10/08/18 17:07 17:12 18:22 WBC RBC Hgb Hct MCH RDW Lymph % (Auto) [place] % (Auto) Lymph # [place]oard # Seg Neutrophils % Seg Neutrophils # PT INR APTT Heparin Anti-Xa Level POC ABG pH 7.337 L POC ABG pCO2 32.0 L POC ABG pO2 130 H Sodium Potassium Chloride 115.5 H Carbon Dioxide 17 L BUN 30 H Creatinine 1.9 H Glucose 103 H POC Glucose 119 H Hemoglobin A1c Lactic Acid Calcium 6.9 L Phosphorus AST Alkaline Phosphatase NT-Pro-B Natriuret Pep Total Protein Albumin 10/08/18 10/08/18 10/09/18 20:09 20:57 01:10 WBC RBC Hgb Hct MCH RDW Lymph % (Auto) [place] % (Auto) Lymph # Foard # Seg Neutrophils % Seg Neutrophils # PT INR APTT Heparin Anti-Xa Level POC ABG pH POC ABG pCO2 POC ABG pO2 Sodium Potassium Chloride 114.3 H 113.7 H Carbon Dioxide 15 L 14 L BUN 29 H 29 H Creatinine 2.1 H 2.0 H Glucose 132 H 39 L* POC Glucose 150 H Hemoglobin A1c Lactic Acid Calcium 6.7 L 6.9 L Phosphorus AST Alkaline Phosphatase NT-Pro-B Natriuret Pep Total Protein Albumin 10/09/18 10/09/18 10/09/18 01:10 01:43 03:20 WBC RBC Hgb Hct MCH RDW Lymph % (Auto) [place] % (Auto) Lymph # [place]oard # Seg Neutrophils % Seg Neutrophils # PT INR APTT Heparin Anti-Xa Level POC ABG pH POC ABG pCO2 POC ABG pO2 Sodium Potassium Chloride Carbon Dioxide BUN Creatinine Glucose POC Glucose < 40 L < 40 L Hemoglobin A1c Lactic Acid Calcium Phosphorus AST Alkaline Phosphatase NT-Pro-B Natriuret Pep 2865 H Total Protein Albumin 10/09/18 10/09/18 10/09/18 04:23 05:03 05:25 WBC RBC Hgb Hct MCH RDW Lymph % (Auto) [place] % (Auto) Lymph # [place]oard # Seg Neutrophils % Seg Neutrophils # PT INR APTT Heparin Anti-Xa Level POC ABG pH POC ABG pCO2 30.6 L 32.3 L POC ABG pO2 118 H Sodium Potassium Chloride Carbon Dioxide BUN Creatinine Glucose POC Glucose 148 H Hemoglobin A1c Lactic Acid Calcium Phosphorus AST Alkaline Phosphatase NT-Pro-B Natriuret Pep Total Protein Albumin 10/09/18 10/09/18 10/09/18 06:00 08:34 09:58 WBC RBC Hgb Hct MCH RDW Lymph % (Auto) [place] % (Auto) Lymph # [place]oard # Seg Neutrophils % Seg Neutrophils # PT INR APTT Heparin Anti-Xa Level POC ABG pH POC ABG pCO2 POC ABG pO2 Sodium Potassium Chloride Carbon Dioxide BUN Creatinine Glucose POC Glucose 173 H 196 H 183 H Hemoglobin A1c Lactic Acid Calcium Phosphorus AST Alkaline Phosphatase NT-Pro-B Natriuret Pep Total Protein Albumin 10/09/18 10/09/18 10/09/18 12:25 12:46 18:16 WBC RBC Hgb Hct MCH RDW Lymph % (Auto) [place] % (Auto) Lymph # [place]oard # Seg Neutrophils % Seg Neutrophils # PT INR APTT Heparin Anti-Xa Level POC ABG pH POC ABG pCO2 POC ABG pO2 Sodium Potassium Chloride 110.3 H Carbon Dioxide 16 L BUN 24 H Creatinine 1.8 H Glucose 207 H POC Glucose 208 H 177 H Hemoglobin A1c Lactic Acid Calcium 6.9 L Phosphorus AST Alkaline Phosphatase NT-Pro-B Natriuret Pep Total Protein Albumin 10/09/18 10/10/18 10/10/18 21:11 00:11 05:41 WBC RBC Hgb Hct MCH RDW Lymph % (Auto) [place] % (Auto) Lymph # [place]oard # Seg Neutrophils % Seg Neutrophils # PT INR APTT Heparin Anti-Xa Level POC ABG pH POC ABG pCO2 POC ABG pO2 Sodium Potassium Chloride Carbon Dioxide BUN Creatinine Glucose POC Glucose 124 H 156 H 42 L Hemoglobin A1c Lactic Acid Calcium Phosphorus AST Alkaline Phosphatase NT-Pro-B Natriuret Pep Total Protein Albumin 10/10/18 10/10/18 10/10/18 05:45 07:28 12:07 WBC RBC Hgb Hct MCH RDW Lymph % (Auto) [place] % (Auto) Lymph # [place]oard # Seg Neutrophils % Seg Neutrophils # PT INR APTT Heparin Anti-Xa Level POC ABG pH POC ABG pCO2 POC ABG pO2 Sodium 146 H D Potassium Chloride 111.2 H Carbon Dioxide BUN 21 H Creatinine 1.8 H Glucose 44 L POC Glucose 114 H 49 L Hemoglobin A1c Lactic Acid Calcium 7.4 L Phosphorus AST Alkaline Phosphatase NT-Pro-B Natriuret Pep Total Protein Albumin 10/10/18 10/10/18 10/10/18 12:37 18:02 20:47 WBC RBC Hgb Hct MCH RDW Lymph % (Auto) [place] % (Auto) Lymph # [place]oard # Seg Neutrophils % Seg Neutrophils # PT INR APTT Heparin Anti-Xa Level POC ABG pH POC ABG pCO2 POC ABG pO2 Sodium Potassium Chloride Carbon Dioxide BUN Creatinine Glucose POC Glucose 142 H 49 L 162 H Hemoglobin A1c Lactic Acid Calcium Phosphorus AST Alkaline Phosphatase NT-Pro-B Natriuret Pep Total Protein Albumin 10/10/18 10/10/18 10/10/18 21:45 22:19 23:50 WBC RBC Hgb Hct MCH RDW Lymph % (Auto) [place] % (Auto) Lymph # [place]oard # Seg Neutrophils % Seg Neutrophils # PT INR APTT Heparin Anti-Xa Level POC ABG pH 7.334 L POC ABG pCO2 47.0 H POC ABG pO2 53 L 79 L Sodium Potassium Chloride Carbon Dioxide BUN Creatinine Glucose POC Glucose 185 H Hemoglobin A1c Lactic Acid Calcium Phosphorus AST Alkaline Phosphatase NT-Pro-B Natriuret Pep Total Protein Albumin 10/11/18 10/11/18 10/11/18 05:00 06:41 07:17 WBC RBC Hgb Hct MCH RDW Lymph % (Auto) [place] % (Auto) Lymph # [place]oard # Seg Neutrophils % Seg Neutrophils # PT INR APTT Heparin Anti-Xa Level POC ABG pH POC ABG pCO2 POC ABG pO2 Sodium Potassium Chloride Carbon Dioxide BUN Creatinine 1.7 H Glucose 43 L POC Glucose 48 L 129 H Hemoglobin A1c Lactic Acid Calcium 7.7 L Phosphorus AST Alkaline Phosphatase NT-Pro-B Natriuret Pep Total Protein Albumin 10/11/18 10/11/18 10/11/18 11:14 13:32 14:25 WBC RBC 3.32 L Hgb 8.2 L Hct 26.4 L MCH 25 L RDW 21.6 H Lymph % (Auto) [place] % (Auto) Lymph # [place]oard # Seg Neutrophils % Seg Neutrophils # PT 21.7 H INR 1.76 H APTT 50.5 H Heparin Anti-Xa Level POC ABG pH POC ABG pCO2 POC ABG pO2 Sodium Potassium Chloride Carbon Dioxide BUN Creatinine Glucose POC Glucose 138 H Hemoglobin A1c Lactic Acid Calcium Phosphorus AST Alkaline Phosphatase NT-Pro-B Natriuret Pep Total Protein Albumin 10/11/18 10/11/18 10/11/18 14:25 15:41 17:31 WBC RBC Hgb Hct MCH RDW Lymph % (Auto) [place] % (Auto) Lymph # [place]oard # Seg Neutrophils % Seg Neutrophils # PT 20.6 H INR 1.65 H APTT 54.9 H Heparin Anti-Xa Level POC ABG pH POC ABG pCO2 POC ABG pO2 53 L Sodium Potassium Chloride Carbon Dioxide BUN Creatinine Glucose POC Glucose 133 H Hemoglobin A1c Lactic Acid Calcium Phosphorus AST Alkaline Phosphatase NT-Pro-B Natriuret Pep Total Protein Albumin 10/12/18 10/12/18 10/12/18 00:30 03:56 04:25 WBC RBC Hgb Hct MCH RDW Lymph % (Auto) [place] % (Auto) Lymph # Foard # Seg Neutrophils % Seg Neutrophils # PT INR APTT Heparin Anti-Xa Level POC ABG pH 7.514 H POC ABG pCO2 31.2 L POC ABG pO2 Sodium Potassium Chloride Carbon Dioxide BUN Creatinine 1.6 H Glucose 287 H POC Glucose 353 H Hemoglobin A1c Lactic Acid Calcium 8.0 L Phosphorus AST Alkaline Phosphatase NT-Pro-B Natriuret Pep Total Protein Albumin 10/12/18 10/12/18 10/12/18 04:49 12:13 17:53 WBC RBC Hgb Hct MCH RDW Lymph % (Auto) [place] % (Auto) Lymph # Foard # Seg Neutrophils % Seg Neutrophils # PT INR APTT Heparin Anti-Xa Level POC ABG pH POC ABG pCO2 POC ABG pO2 Sodium Potassium Chloride Carbon Dioxide BUN Creatinine Glucose POC Glucose 297 H 290 H 211 H Hemoglobin A1c Lactic Acid Calcium Phosphorus AST Alkaline Phosphatase NT-Pro-B Natriuret Pep Total Protein Albumin 10/12/18 10/12/18 10/13/18 18:57 21:35 04:50 WBC 11.8 H RBC 3.08 L Hgb 7.4 L Hct 24.2 L MCH 24 L RDW 21.5 H Lymph % (Auto) [place] % (Auto) Lymph # Foard # Seg Neutrophils % Seg Neutrophils # PT INR APTT Heparin Anti-Xa Level 1.74 H POC ABG pH 7.497 H POC ABG pCO2 33.2 L POC ABG pO2 71 L Sodium Potassium Chloride Carbon Dioxide BUN Creatinine Glucose POC Glucose Hemoglobin A1c Lactic Acid Calcium Phosphorus AST Alkaline Phosphatase NT-Pro-B Natriuret Pep Total Protein Albumin 10/13/18 10/13/18 10/13/18 05:25 05:25 05:37 WBC 12.1 H RBC 3.02 L Hgb 7.4 L Hct 23.7 L MCH 25 L RDW 21.0 H Lymph % (Auto) 9.6 L [place] % (Auto) 10.0 H Lymph # Foard # 1.2 H Seg Neutrophils % 76.2 H Seg Neutrophils # 9.2 H PT INR APTT Heparin Anti-Xa Level POC ABG pH POC ABG pCO2 POC ABG pO2 Sodium Potassium Chloride Carbon Dioxide BUN Creatinine 1.6 H Glucose 175 H POC Glucose 165 H Hemoglobin A1c Lactic Acid Calcium 8.3 L Phosphorus AST Alkaline Phosphatase NT-Pro-B Natriuret Pep Total Protein Albumin 10/13/18 10/13/18 10/13/18 06:45 11:12 17:19 WBC RBC Hgb Hct MCH RDW Lymph % (Auto) [place] % (Auto) Lymph # [place]oard # Seg Neutrophils % Seg Neutrophils # PT 17.4 H INR 1.34 H APTT Heparin Anti-Xa Level POC ABG pH POC ABG pCO2 POC ABG pO2 Sodium Potassium Chloride Carbon Dioxide BUN Creatinine Glucose POC Glucose 223 H 129 H Hemoglobin A1c Lactic Acid Calcium Phosphorus AST Alkaline Phosphatase NT-Pro-B Natriuret Pep Total Protein Albumin 10/13/18 10/14/18 10/14/18 23:39 05:01 06:14 WBC RBC Hgb Hct MCH RDW Lymph % (Auto) [place] % (Auto) Lymph # Foard # Seg Neutrophils % Seg Neutrophils # PT INR APTT Heparin Anti-Xa Level POC ABG pH POC ABG pCO2 POC ABG pO2 Sodium Potassium Chloride Carbon Dioxide BUN Creatinine 1.5 H Glucose 264 H POC Glucose 171 H 226 H Hemoglobin A1c Lactic Acid Calcium 8.0 L Phosphorus AST Alkaline Phosphatase NT-Pro-B Natriuret Pep Total Protein Albumin 10/14/18 10/14/18 10/14/18 06:14 12:24 19:33 WBC RBC Hgb Hct MCH RDW Lymph % (Auto) [place] % (Auto) Lymph # Foard # Seg Neutrophils % Seg Neutrophils # PT 22.1 H INR 1.80 H APTT Heparin Anti-Xa Level POC ABG pH POC ABG pCO2 POC ABG pO2 Sodium Potassium Chloride Carbon Dioxide BUN Creatinine Glucose POC Glucose 403 H 164 H Hemoglobin A1c Lactic Acid Calcium Phosphorus AST Alkaline Phosphatase NT-Pro-B Natriuret Pep Total Protein Albumin 10/15/18 10/15/18 10/15/18 00:29 06:03 07:00 WBC RBC Hgb Hct MCH RDW Lymph % (Auto) [place] % (Auto) Lymph # [place]oard # Seg Neutrophils % Seg Neutrophils # PT INR APTT Heparin Anti-Xa Level POC ABG pH POC ABG pCO2 POC ABG pO2 Sodium Potassium Chloride Carbon Dioxide BUN 20 H Creatinine 1.7 H Glucose 308 H POC Glucose 237 H 282 H Hemoglobin A1c Lactic Acid Calcium 7.6 L Phosphorus AST Alkaline Phosphatase NT-Pro-B Natriuret Pep Total Protein Albumin 10/15/18 10/15/18 07:00 08:03 WBC RBC Hgb 5.8 L* Hct 18.5 L* MCH RDW Lymph % (Auto) [place] % (Auto) Lymph # [place]oard # Seg Neutrophils % Seg Neutrophils # PT 46.1 H INR 4.52 H APTT Heparin Anti-Xa Level 0.25 L POC ABG pH POC ABG pCO2 POC ABG pO2 Sodium Potassium Chloride Carbon Dioxide BUN Creatinine Glucose POC Glucose Hemoglobin A1c Lactic Acid Calcium Phosphorus AST Alkaline Phosphatase NT-Pro-B Natriuret Pep Total Protein Albumin Allied health notes reviewed: nursing
--- NOTE | 2018-10-15 10:50 | Progress Note ---
Assessment and Plan Assessment and plan: 48 year old woman with history of coronary artery disease, status post cabbage, diabetes, hypertension who was brought to the emergency room for altered mental status. She was found to have hypoglycemia, she was also having convulsions at the time of admission. The patient was intubated, sp dextrose she was put on the ventilator she was found to have pneumonia and CHF flare and started on antibiotics. patient has history of MV replacement and was on anticoagulation. Pneumonia, severe sepsis - Patient was on IV antibiotics and discontinued 10/13 per ID - Chest x-ray right lower lobe infiltrates, right pleural effusion - Lactic acid is improving Acute respiratory failure Was intubated and on mechanical ventilation - patient was extubated on 10/13 - Saturating well on 2 L of intranasal oxygen status epilepticus; Seizures when most likely due to hypoglycemia -Treated with dextrose -EEG, neurology consult appreciated Acute on chronic systolic CHF EF 40%, dilated ventricles - on bumex, optimize meds, cardiology consult History of mitral valve replacement - patient was on heparin and warfarin, I held this morning because her hemoglobin dropped to 5.8 - Cardiology is on board Severe anemia - Patient's hemoglobin dropped to 5.8 this morning - Discussed with GI and recommended to held heparin and Coumadin - We'll transfuse 2 units of blood 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 Extubated 10/13/18. Sinus tachycardia; her metoprolol is increased. Still tachycardic Disposition; transfer her to [facility]. History Interval history: Patient was seen and evaluated this morning, patient was extubated on 10/12/18. Patient doesn't speak much, but denied chest pain or SOB. Hospitalist Physical - Physical exam Narrative exam: Patient was on [place] oxygen. The patient appeared well nourished and normally developed. Vital signs as documented. Head exam is unremarkable. No scleral icterus . Neck is without jugular venous distension, thyromegaly, or carotid bruits. Lungs are clear to auscultation. Cardiac exam reveals regular rate and Rhythm. Tachycardia. Abdominal exam reveals normal bowel sounds Extremities are nonedematous. 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 she said she is ok, no pain. - Constitutional Vitals: Temp Pulse Resp BP Pulse Ox 99.2 F 114 H 25 H 121/61 95 10/15/18 00:00 10/15/18 07:00 10/15/18 07:00 10/15/18 07:00 10/15/18 07:00 General appearance: Present: other (intubated, eyes open, no purposeful response to commands) Results - Labs CBC & Chem 7: 10/15/18 08:03 10/15/18 07:00 Labs: Laboratory Last Values WBC 12.1 K/mm3 (4.5-11.0) H 10/13/18 05:25 RBC 3.02 M/mm3 (3.65-5.03) L 10/13/18 05:25 Hgb 5.8 gm/dl (10.1-14.3) L* 10/15/18 08:03 Hct 18.5 % (30.3-42.9) L* 10/15/18 08:03 MCV 79 fl (79-97) 10/13/18 05:25 MCH 25 pg (28-32) L 10/13/18 05:25 MCHC 31 % (30-34) 10/13/18 05:25 RDW 21.0 % (13.2-15.2) H 10/13/18 05:25 Plt Count 246 K/mm3 (140-440) 10/15/18 08:03 Lymph % (Auto) 9.6 % (13.4-35.0) L 10/13/18 05:25 [place] % (Auto) 10.0 % (0.0-7.3) H 10/13/18 05:25 Eos % (Auto) 3.7 % (0.0-4.3) 10/13/18 05:25 Baso % (Auto) 0.5 % (0.0-1.8) 10/13/18 05:25 Lymph # 1.2 K/mm3 (1.2-5.4) 10/13/18 05:25 [place] # 1.2 K/mm3 (0.0-0.8) H 10/13/18 05:25 Eos # 0.4 K/mm3 (0.0-0.4) 10/13/18 05:25 Baso # 0.1 K/mm3 (0.0-0.1) 10/13/18 05:25 Seg Neutrophils % 76.2 % (40.0-70.0) H 10/13/18 05:25 Seg Neutrophils # 9.2 K/mm3 (1.8-7.7) H 10/13/18 05:25 PT 46.1 Sec. (12.2-14.9) H 10/15/18 07:00 INR 4.52 (0.87-1.13) H 10/15/18 07:00 APTT 54.9 Sec. (24.2-36.6) H 10/11/18 14:25 Heparin Anti-Xa Level 0.25 U.I./ml (0.3-0.7) L 10/15/18 07:00 POC ABG pH 7.426 (7.35-7.45) 10/13/18 09:41 POC ABG pCO2 37.2 (35-45) 10/13/18 09:41 POC ABG pO2 71 (80-105) L 10/13/18 04:50 POC ABG HCO3 24.4 (22-26 mml/L) 10/13/18 09:41 POC ABG Total CO2 26 (23-27mmol/L) 10/13/18 09:41 POC ABG O2 Sat 70 10/13/18 09:41 POC ABG Base Excess 0 ((-2) - (+3)mmol/L) 10/13/18 09:41 30 % 10/13/18 09:41 Sodium 138 mmol/L (137-145) 10/15/18 07:00 Potassium 4.0 mmol/L (3.6-5.0) 10/15/18 07:00 Chloride 98.0 mmol/L (98-107) 10/15/18 07:00 Carbon Dioxide 23 mmol/L (22-30) 10/15/18 07:00 21 mmol/L 10/15/18 07:00 BUN 20 mg/dL (7-17) H 10/15/18 07:00 1.7 mg/dL (0.7-1.2) H 10/15/18 07:00 Estimated GFR 39 ml/min 10/15/18 07:00 12 % 10/15/18 07:00 Glucose 308 mg/dL (65-100) H 10/15/18 07:00 POC Glucose 282 (70-105) H 10/15/18 06:03 10.2 % (4-6) H 10/07/18 22:08 Lactic Acid 1.50 mmol/L (0.7-2.0) 10/08/18 17:09 Calcium 7.6 mg/dL (8.4-10.2) L 10/15/18 07:00 Phosphorus 7.40 mg/dL (2.5-4.5) H 10/07/18 22:08 Magnesium 1.90 mg/dL (1.7-2.3) 10/08/18 04:05 0.20 mg/dL (0.1-1.2) 10/08/18 04:05 < 0.2 mg/dL (0-0.2) 10/07/18 02:43 0.5 mg/dL 10/07/18 02:43 AST 26 units/L (5-40) 10/08/18 04:05 ALT 22 units/L (7-56) 10/08/18 04:05 155 units/L (35-129) H 10/08/18 04:05 40.0 umol/L (25-60) 10/07/18 02:43 < 0.010 ng/mL (0.00-0.029) 10/07/18 08:59 0.20 mg/dL (0.00-1.30) 10/07/18 14:55 NT-Pro-B Natriuret Pep 2865 pg/mL (0-450) H 10/09/18 03:20 5.2 g/dL (6.3-8.2) L D 10/08/18 04:05 2.6 g/dL (3.9-5) L 10/08/18 04:05 1.0 % 10/08/18 04:05 Straw (Yellow) 10/07/18 02:34 Clear (Clear) 10/07/18 02:34 7.0 (5.0-7.0) 10/07/18 02:34 Ur Specific [place] 1.006 (1.003-1.030) 10/07/18 02:34 100 mg/dl mg/dL (Negative) 10/07/18 02:34 Neg mg/dL (Negative) 10/07/18 02:34 Neg mg/dL (Negative) 10/07/18 02:34 Sm (Negative) 10/07/18 02:34 Neg (Negative) 10/07/18 02:34 Neg (Negative) 10/07/18 02:34 < 2.0 mg/dL (<2.0) 10/07/18 02:34 Ur Leukocyte Esterase Tr (Negative) 10/07/18 02:34 1.0 /HPF (0.0-6.0) 10/07/18 02:34 5.0 /HPF (0.0-6.0) 10/07/18 02:34 U Epithel Cells (Auto) 1.0 /HPF (0-13.0) 10/07/18 02:34 Hyaline Casts 3 /LPF 10/07/18 02:34 Few /HPF 10/07/18 02:34 Presumptive negative 10/07/18 02:34 Presumptive negative 10/07/18 02:34 Ur Barbiturates Screen Presumptive negative 10/07/18 02:34 Ur Phencyclidine Scrn Presumptive negative 10/07/18 02:34 Ur Amphetamines Screen Presumptive negative 10/07/18 02:34 U Benzodiazepines Scrn Presumptive negative 10/07/18 02:34 Presumptive negative 10/07/18 02:34 U Marijuana (THC) Screen Presumptive positive 10/07/18 02:34 Disclamer 10/07/18 02:34 Active Medications - Current Medications Current Medications: Generic Name Dose Route Start Last Admin Trade Name Freq PRN Reason Stop Dose Admin Acetaminophen 650 mg 10/07/18 04:59 10/12/18 12:47 Tylenol PO 650 mg Q4H PRN Administration Pain MILD(1-3)/Fever >100.5/RODRIGUEZ Lipase/Protease/Amylase 1 each 10/08/18 10:00 Pancreangelica Arredondo 10,500 Unit FEEDTUBE PRN PRN For Clogged Feeding Tube Dextrose 50 ml 10/07/18 20:42 10/10/18 05:46 D50w (25gm) Syringe IV 50 ml PRN PRN Administration Hypoglycemia Fentanyl 50 mcg 10/07/18 09:07 10/12/18 09:05 Sublimaze IV 50 mcg Q10MIN PRN Administration ANALGESIA Hydralazine HCl 10 mg 10/07/18 05:07 10/14/18 08:35 Apresoline IV 10 mg Q4H PRN Administration Blood Pressure Hydrophilic Ointment 1 applic 10/07/18 02:40 Vaseline Lip Therapy TP Q2HR PRN Dry Lips Heparin Sodium/Sodium Chloride 25,000 unit in 500 mls @ 20 mls/hr 10/11/18 15:00 10/15/18 06:38 Heparin/ 0.45% Nacl-25,000 Unit/500 Ml IV 850 units/hr TITR ULI 17 mls/hr Administration Protocol 1,000 UNITS/HR Insulin Glargine 5 units 10/12/18 12:00 10/14/18 10:00 Lantus SUB-Q 5 units DAILY ULI Administration Insulin Human Lispro 0 unit 10/09/18 00:00 10/15/18 00:27 Humalog SUB-Q 2 unit Q6HR ULI Administration Protocol Lansoprazole 30 mg 10/15/18 10:00 Prevacid Solutab FEEDTUBE QDAY ULI Metoclopramide HCl 10 mg 10/11/18 13:00 10/12/18 19:32 Reglan IV 10 mg Q6HR PRN Administration Nausea And Vomiting Metoprolol Tartrate 50 mg 10/14/18 08:40 10/14/18 22:18 Lopressor PO 50 mg TID ULI Administration Midazolam HCl 2 mg 10/07/18 06:03 10/12/18 04:21 Versed IV 2 mg Q10MIN PRN Administration Sedation Multi-Ingred Cream/Lotion/Oil/Oint 1 applic 10/07/18 02:40 Artificial Tears Ophth Oint OU Q4HR PRN Dry Eye(s) Ondansetron HCl 4 mg 10/07/18 04:59 Zofran IV Q8H PRN N/V unrelieved by Reglan Quetiapine Fumarate 100 mg 10/09/18 22:00 10/14/18 22:15 Seroquel PO 100 mg QHS ULI Administration Simple Syrup 15 ml 10/08/18 10:00 Simple Syrup FEEDTUBE PRN PRN Hypoglycemia Simple Syrup 30 ml 10/08/18 10:00 10/09/18 01:09 Simple Syrup FEEDTUBE 30 ml PRN PRN Administration Hypoglycemia Sodium Bicarbonate 325 mg 10/08/18 10:00 Sodium Bicarbonate FEEDTUBE PRN PRN For Clogged Feeding Tube Sodium Chloride 10 ml 10/07/18 10:00 10/14/18 22:16 Sodium Chloride Flush Syringe 10 Ml IV 10 ml BID ULI Administration Sodium Chloride 10 ml 10/07/18 04:59 Sodium Chloride Flush Syringe 10 Ml IV PRN PRN LINE FLUSH Nutrition/Malnutrition Assess - Dietary Evaluation Nutrition/Malnutrition Findings: Nutrition Notes Start: 10/07/18 12:17 Freq: Status: Active Protocol: Document 10/13/18 09:36 CP (Rec: 10/13/18 09:38 CP [id number]) Co-Sign 10/13/18 09:36 LP Nutrition Notes Initial or Follow up Brief Note Subjective/Other Information F/U for TF to start and pt screened for DNI. TF was infusing at goal rate during time of visit. Pt will be extubated today as discussed in rounds. Nutrition Intervention Follow-Up By: 10/17/18 Additional Comments F/U: Diet advancement/coumadin
--- NOTE | 2018-10-15 11:18 | Progress Note ---
Subjective Date of service: 10/15/18 Principal diagnosis: Ac hypoxemic resp failure; Seizures (?hypoglycemic); Ac encephalopathy(T/M) Interval history: continue to follow for the encephalopathy all labs reviewed this is being addressed by other consultants in their notes Objective - Vital Sign Vital Signs - 12hr 10/14/18 10/15/18 10/15/18 23:30 00:00 00:30 Temperature 99.2 F Pulse Rate 116 H 106 H 110 H Pulse Rate [ 119 H Right Dorsalis Pedis] Respiratory 33 H 26 H 22 Rate Blood Pressure 160/85 163/90 136/48 O2 Sat by Pulse 96 97 98 Oximetry 10/15/18 10/15/18 10/15/18 01:00 01:30 02:00 Temperature Pulse Rate 110 H 106 H 107 H Pulse Rate [ Right Dorsalis Pedis] Respiratory 29 H 30 H 26 H Rate Blood Pressure 136/48 98/43 91/48 O2 Sat by Pulse 98 94 68 L Oximetry 10/15/18 10/15/18 10/15/18 02:30 03:00 03:30 Temperature Pulse Rate 107 H 107 H 115 H Pulse Rate [ Right Dorsalis Pedis] Respiratory 33 H 32 H 24 Rate Blood Pressure 103/58 99/54 138/72 O2 Sat by Pulse 98 98 91 Oximetry 10/15/18 10/15/18 10/15/18 04:00 04:30 05:00 Temperature Pulse Rate 108 H 107 H 109 H Pulse Rate [ 114 H Right Dorsalis Pedis] Respiratory 35 H 33 H 34 H Rate Blood Pressure 125/65 113/64 113/64 O2 Sat by Pulse 99 99 100 Oximetry 10/15/18 10/15/18 10/15/18 05:30 06:00 06:30 Temperature Pulse Rate 104 H 109 H 106 H Pulse Rate [ Right Dorsalis Pedis] Respiratory 29 H 22 33 H Rate Blood Pressure 121/61 121/61 121/61 O2 Sat by Pulse 100 96 99 Oximetry 10/15/18 10/15/18 07:00 09:40 Temperature Pulse Rate 114 H Pulse Rate [ Right Dorsalis Pedis] Respiratory 25 H Rate Blood Pressure 121/61 O2 Sat by Pulse 95 96 Oximetry - Laboratory Findings CBC and BMP: 10/15/18 08:03 10/15/18 07:00 Abnormal Lab Findings: Abnormal Labs 10/07/18 10/07/1819 02:20 02:43 02:43 WBC RBC Hgb Hct MCH 25 L RDW 21.5 H Lymph % (Auto) [place] % (Auto) Lymph # 0.9 L [place] # Seg Neutrophils % 78.4 H Seg Neutrophils # PT INR APTT Heparin Anti-Xa Level POC ABG pH POC ABG pCO2 POC ABG pO2 Sodium Potassium Chloride 108.0 H Carbon Dioxide 21 L BUN Creatinine 1.5 H Glucose 115 H POC Glucose 136 H Hemoglobin A1c Lactic Acid Calcium Phosphorus AST 51 H Alkaline Phosphatase 257 H NT-Pro-B Natriuret Pep Total Protein Albumin 10/07/18 10/07/18 10/07/18 02:43 04:32 05:12 WBC RBC Hgb Hct MCH RDW Lymph % (Auto) [place] % (Auto) Lymph # [place] # Seg Neutrophils % Seg Neutrophils # PT 25.4 H INR 2.14 H APTT Heparin Anti-Xa Level POC ABG pH POC ABG pCO2 33.6 L POC ABG pO2 69 L Sodium Potassium Chloride Carbon Dioxide BUN Creatinine Glucose POC Glucose Hemoglobin A1c Lactic Acid 2.40 H* Calcium Phosphorus AST Alkaline Phosphatase NT-Pro-B Natriuret Pep Total Protein Albumin 10/07/18 10/07/18 10/07/18 06:28 18:39 20:26 WBC RBC Hgb Hct MCH RDW Lymph % (Auto) [place] % (Auto) Lymph # [place] # Seg Neutrophils % Seg Neutrophils # PT INR APTT Heparin Anti-Xa Level POC ABG pH POC ABG pCO2 POC ABG pO2 Sodium Potassium Chloride Carbon Dioxide BUN Creatinine Glucose POC Glucose 164 H 440 H > 500 H Hemoglobin A1c Lactic Acid Calcium Phosphorus AST Alkaline Phosphatase NT-Pro-B Natriuret Pep Total Protein Albumin 10/07/18 10/07/18 10/07/18 20:28 21:53 22:08 WBC RBC Hgb Hct MCH RDW Lymph % (Auto) [place] % (Auto) Lymph # [place] # Seg Neutrophils % Seg Neutrophils # PT INR APTT Heparin Anti-Xa Level POC ABG pH POC ABG pCO2 POC ABG pO2 Sodium 136 L D Potassium 6.4 H* D Chloride Carbon Dioxide 10 L D BUN 30 H Creatinine 2.0 H Glucose 544 H* POC Glucose 483 H > 500 H Hemoglobin A1c Lactic Acid Calcium 7.0 L D Phosphorus AST Alkaline Phosphatase NT-Pro-B Natriuret Pep Total Protein Albumin 10/07/18 10/07/18 10/07/18 22:08 22:08 22:56 WBC RBC Hgb Hct MCH RDW Lymph % (Auto) [place] % (Auto) Lymph # [place] # Seg Neutrophils % Seg Neutrophils # PT INR APTT Heparin Anti-Xa Level POC ABG pH POC ABG pCO2 POC ABG pO2 Sodium Potassium Chloride Carbon Dioxide BUN Creatinine Glucose POC Glucose 462 H Hemoglobin A1c 10.2 H Lactic Acid Calcium Phosphorus 7.40 H AST Alkaline Phosphatase NT-Pro-B Natriuret Pep Total Protein Albumin 10/07/18 10/08/18 10/08/18 23:39 00:58 02:09 WBC RBC Hgb Hct MCH RDW Lymph % (Auto) [place] % (Auto) Lymph # [place] # Seg Neutrophils % Seg Neutrophils # PT INR APTT Heparin Anti-Xa Level POC ABG pH POC ABG pCO2 POC ABG pO2 Sodium Potassium Chloride Carbon Dioxide BUN Creatinine Glucose POC Glucose 396 H 375 H 285 H Hemoglobin A1c Lactic Acid Calcium Phosphorus AST Alkaline Phosphatase NT-Pro-B Natriuret Pep Total Protein Albumin 10/08/18 10/08/18 10/08/18 03:10 03:33 04:05 WBC RBC Hgb Hct MCH RDW Lymph % (Auto) [place] % (Auto) Lymph # [place] # Seg Neutrophils % Seg Neutrophils # PT INR APTT Heparin Anti-Xa Level POC ABG pH 7.243 L POC ABG pCO2 33.8 L POC ABG pO2 126 H Sodium Potassium 5.3 H Chloride 110.7 H Carbon Dioxide 14 L BUN 33 H Creatinine 2.2 H Glucose 193 H POC Glucose 251 H Hemoglobin A1c Lactic Acid Calcium 7.0 L Phosphorus AST Alkaline Phosphatase 155 H NT-Pro-B Natriuret Pep Total Protein 5.2 L D Albumin 2.6 L 10/08/18 10/08/18 10/08/18 04:05 04:05 04:09 WBC 11.8 H RBC 3.32 L Hgb 8.3 L Hct 27.5 L D MCH 25 L RDW 22.0 H Lymph % (Auto) 6.8 L [place] % (Auto) 12.0 H Lymph # 0.8 L [place] # 1.4 H Seg Neutrophils % 80.6 H Seg Neutrophils # 9.5 H PT INR APTT Heparin Anti-Xa Level POC ABG pH POC ABG pCO2 POC ABG pO2 Sodium Potassium Chloride Carbon Dioxide BUN Creatinine Glucose POC Glucose 175 H Hemoglobin A1c Lactic Acid 3.70 H* Calcium Phosphorus AST Alkaline Phosphatase NT-Pro-B Natriuret Pep Total Protein Albumin 10/08/18 10/08/18 10/08/18 05:07 06:05 07:14 WBC RBC Hgb Hct MCH RDW Lymph % (Auto) [place] % (Auto) Lymph # [place] # Seg Neutrophils % Seg Neutrophils # PT INR APTT Heparin Anti-Xa Level POC ABG pH POC ABG pCO2 POC ABG pO2 Sodium Potassium Chloride Carbon Dioxide BUN Creatinine Glucose POC Glucose 125 H 122 H 147 H Hemoglobin A1c Lactic Acid Calcium Phosphorus AST Alkaline Phosphatase NT-Pro-B Natriuret Pep Total Protein Albumin 10/08/18 10/08/18 10/08/18 07:22 08:09 08:47 WBC RBC Hgb Hct MCH RDW Lymph % (Auto) [place] % (Auto) Lymph # [place] # Seg Neutrophils % Seg Neutrophils # PT INR APTT Heparin Anti-Xa Level POC ABG pH POC ABG pCO2 POC ABG pO2 Sodium Potassium 5.2 H Chloride 112.4 H Carbon Dioxide 17 L BUN 32 H Creatinine 2.1 H Glucose 148 H POC Glucose 134 H 148 H Hemoglobin A1c Lactic Acid Calcium 6.6 L Phosphorus AST Alkaline Phosphatase NT-Pro-B Natriuret Pep Total Protein Albumin 10/08/18 10/08/18 10/08/18 10:21 13:29 14:21 WBC RBC Hgb Hct MCH RDW Lymph % (Auto) [place] % (Auto) Lymph # [place] # Seg Neutrophils % Seg Neutrophils # PT INR APTT Heparin Anti-Xa Level POC ABG pH POC ABG pCO2 POC ABG pO2 Sodium Potassium Chloride Carbon Dioxide BUN Creatinine Glucose POC Glucose 115 H 109 H 118 H Hemoglobin A1c Lactic Acid Calcium Phosphorus AST Alkaline Phosphatase NT-Pro-B Natriuret Pep Total Protein Albumin 10/08/18 10/08/18 10/08/18 15:27 17:00 17:00 WBC 11.3 H RBC 3.21 L Hgb 7.9 L Hct 25.7 L MCH 25 L RDW 21.8 H Lymph % (Auto) 8.5 L [place] % (Auto) 7.7 H Lymph # 1.0 L [place] # 0.9 H Seg Neutrophils % 82.8 H Seg Neutrophils # 9.3 H PT INR APTT Heparin Anti-Xa Level POC ABG pH POC ABG pCO2 POC ABG pO2 Sodium Potassium Chloride Carbon Dioxide BUN Creatinine Glucose POC Glucose 129 H Hemoglobin A1c Lactic Acid Calcium Phosphorus AST Alkaline Phosphatase NT-Pro-B Natriuret Pep 3097 H Total Protein Albumin 10/08/18 10/08/18 10/08/18 17:07 17:12 18:22 WBC RBC Hgb Hct MCH RDW Lymph % (Auto) [place] % (Auto) Lymph # [place] # Seg Neutrophils % Seg Neutrophils # PT INR APTT Heparin Anti-Xa Level POC ABG pH 7.337 L POC ABG pCO2 32.0 L POC ABG pO2 130 H Sodium Potassium Chloride 115.5 H Carbon Dioxide 17 L BUN 30 H Creatinine 1.9 H Glucose 103 H POC Glucose 119 H Hemoglobin A1c Lactic Acid Calcium 6.9 L Phosphorus AST Alkaline Phosphatase NT-Pro-B Natriuret Pep Total Protein Albumin 10/08/18 10/08/18 10/09/18 20:09 20:57 01:10 WBC RBC Hgb Hct MCH RDW Lymph % (Auto) [place] % (Auto) Lymph # [place] # Seg Neutrophils % Seg Neutrophils # PT INR APTT Heparin Anti-Xa Level POC ABG pH POC ABG pCO2 POC ABG pO2 Sodium Potassium Chloride 114.3 H 113.7 H Carbon Dioxide 15 L 14 L BUN 29 H 29 H Creatinine 2.1 H 2.0 H Glucose 132 H 39 L* POC Glucose 150 H Hemoglobin A1c Lactic Acid Calcium 6.7 L 6.9 L Phosphorus AST Alkaline Phosphatase NT-Pro-B Natriuret Pep Total Protein Albumin 10/09/18 10/09/18 10/09/18 01:10 01:43 03:20 WBC RBC Hgb Hct MCH RDW Lymph % (Auto) [place] % (Auto) Lymph # [place] # Seg Neutrophils % Seg Neutrophils # PT INR APTT Heparin Anti-Xa Level POC ABG pH POC ABG pCO2 POC ABG pO2 Sodium Potassium Chloride Carbon Dioxide BUN Creatinine Glucose POC Glucose < 40 L < 40 L Hemoglobin A1c Lactic Acid Calcium Phosphorus AST Alkaline Phosphatase NT-Pro-B Natriuret Pep 2865 H Total Protein Albumin 10/09/18 10/09/18 10/09/18 04:23 05:03 05:25 WBC RBC Hgb Hct MCH RDW Lymph % (Auto) [place] % (Auto) Lymph # [place] # Seg Neutrophils % Seg Neutrophils # PT INR APTT Heparin Anti-Xa Level POC ABG pH POC ABG pCO2 30.6 L 32.3 L POC ABG pO2 118 H Sodium Potassium Chloride Carbon Dioxide BUN Creatinine Glucose POC Glucose 148 H Hemoglobin A1c Lactic Acid Calcium Phosphorus AST Alkaline Phosphatase NT-Pro-B Natriuret Pep Total Protein Albumin 10/09/18 10/09/18 10/09/18 06:00 08:34 09:58 WBC RBC Hgb Hct MCH RDW Lymph % (Auto) [place] % (Auto) Lymph # [place] # Seg Neutrophils % Seg Neutrophils # PT INR APTT Heparin Anti-Xa Level POC ABG pH POC ABG pCO2 POC ABG pO2 Sodium Potassium Chloride Carbon Dioxide BUN Creatinine Glucose POC Glucose 173 H 196 H 183 H Hemoglobin A1c Lactic Acid Calcium Phosphorus AST Alkaline Phosphatase NT-Pro-B Natriuret Pep Total Protein Albumin 10/09/18 10/09/18 10/09/18 12:25 12:46 18:16 WBC RBC Hgb Hct MCH RDW Lymph % (Auto) [place] % (Auto) Lymph # [place] # Seg Neutrophils % Seg Neutrophils # PT INR APTT Heparin Anti-Xa Level POC ABG pH POC ABG pCO2 POC ABG pO2 Sodium Potassium Chloride 110.3 H Carbon Dioxide 16 L BUN 24 H Creatinine 1.8 H Glucose 207 H POC Glucose 208 H 177 H Hemoglobin A1c Lactic Acid Calcium 6.9 L Phosphorus AST Alkaline Phosphatase NT-Pro-B Natriuret Pep Total Protein Albumin 10/09/18 10/10/18 10/10/18 21:11 00:11 05:41 WBC RBC Hgb Hct MCH RDW Lymph % (Auto) [place] % (Auto) Lymph # [place] # Seg Neutrophils % Seg Neutrophils # PT INR APTT Heparin Anti-Xa Level POC ABG pH POC ABG pCO2 POC ABG pO2 Sodium Potassium Chloride Carbon Dioxide BUN Creatinine Glucose POC Glucose 124 H 156 H 42 L Hemoglobin A1c Lactic Acid Calcium Phosphorus AST Alkaline Phosphatase NT-Pro-B Natriuret Pep Total Protein Albumin 10/10/18 10/10/18 10/10/18 05:45 07:28 12:07 WBC RBC Hgb Hct MCH RDW Lymph % (Auto) [place] % (Auto) Lymph # [place] # Seg Neutrophils % Seg Neutrophils # PT INR APTT Heparin Anti-Xa Level POC ABG pH POC ABG pCO2 POC ABG pO2 Sodium 146 H D Potassium Chloride 111.2 H Carbon Dioxide BUN 21 H Creatinine 1.8 H Glucose 44 L POC Glucose 114 H 49 L Hemoglobin A1c Lactic Acid Calcium 7.4 L Phosphorus AST Alkaline Phosphatase NT-Pro-B Natriuret Pep Total Protein Albumin 10/10/18 10/10/18 10/10/18 12:37 18:02 20:47 WBC RBC Hgb Hct MCH RDW Lymph % (Auto) [place] % (Auto) Lymph # [place] # Seg Neutrophils % Seg Neutrophils # PT INR APTT Heparin Anti-Xa Level POC ABG pH POC ABG pCO2 POC ABG pO2 Sodium Potassium Chloride Carbon Dioxide BUN Creatinine Glucose POC Glucose 142 H 49 L 162 H Hemoglobin A1c Lactic Acid Calcium Phosphorus AST Alkaline Phosphatase NT-Pro-B Natriuret Pep Total Protein Albumin 10/10/18 10/10/18 10/10/18 21:45 22:19 23:50 WBC RBC Hgb Hct MCH RDW Lymph % (Auto) [place] % (Auto) Lymph # [place] # Seg Neutrophils % Seg Neutrophils # PT INR APTT Heparin Anti-Xa Level POC ABG pH 7.334 L POC ABG pCO2 47.0 H POC ABG pO2 53 L 79 L Sodium Potassium Chloride Carbon Dioxide BUN Creatinine Glucose POC Glucose 185 H Hemoglobin A1c Lactic Acid Calcium Phosphorus AST Alkaline Phosphatase NT-Pro-B Natriuret Pep Total Protein Albumin 10/11/18 10/11/18 10/11/18 05:00 06:41 07:17 WBC RBC Hgb Hct MCH RDW Lymph % (Auto) [place] % (Auto) Lymph # [place] # Seg Neutrophils % Seg Neutrophils # PT INR APTT Heparin Anti-Xa Level POC ABG pH POC ABG pCO2 POC ABG pO2 Sodium Potassium Chloride Carbon Dioxide BUN Creatinine 1.7 H Glucose 43 L POC Glucose 48 L 129 H Hemoglobin A1c Lactic Acid Calcium 7.7 L Phosphorus AST Alkaline Phosphatase NT-Pro-B Natriuret Pep Total Protein Albumin 10/11/18 10/11/18 10/11/18 11:14 13:32 14:25 WBC RBC 3.32 L Hgb 8.2 L Hct 26.4 L MCH 25 L RDW 21.6 H Lymph % (Auto) [place] % (Auto) Lymph # [place] # Seg Neutrophils % Seg Neutrophils # PT 21.7 H INR 1.76 H APTT 50.5 H Heparin Anti-Xa Level POC ABG pH POC ABG pCO2 POC ABG pO2 Sodium Potassium Chloride Carbon Dioxide BUN Creatinine Glucose POC Glucose 138 H Hemoglobin A1c Lactic Acid Calcium Phosphorus AST Alkaline Phosphatase NT-Pro-B Natriuret Pep Total Protein Albumin 10/11/18 10/11/18 10/11/18 14:25 15:41 17:31 WBC RBC Hgb Hct MCH RDW Lymph % (Auto) [place] % (Auto) Lymph # [place] # Seg Neutrophils % Seg Neutrophils # PT 20.6 H INR 1.65 H APTT 54.9 H Heparin Anti-Xa Level POC ABG pH POC ABG pCO2 POC ABG pO2 53 L Sodium Potassium Chloride Carbon Dioxide BUN Creatinine Glucose POC Glucose 133 H Hemoglobin A1c Lactic Acid Calcium Phosphorus AST Alkaline Phosphatase NT-Pro-B Natriuret Pep Total Protein Albumin 10/12/18 10/12/18 10/12/18 00:30 03:56 04:25 WBC RBC Hgb Hct MCH RDW Lymph % (Auto) [place] % (Auto) Lymph # [place] # Seg Neutrophils % Seg Neutrophils # PT INR APTT Heparin Anti-Xa Level POC ABG pH 7.514 H POC ABG pCO2 31.2 L POC ABG pO2 Sodium Potassium Chloride Carbon Dioxide BUN Creatinine 1.6 H Glucose 287 H POC Glucose 353 H Hemoglobin A1c Lactic Acid Calcium 8.0 L Phosphorus AST Alkaline Phosphatase NT-Pro-B Natriuret Pep Total Protein Albumin 10/12/18 10/12/18 10/12/18 04:49 12:13 17:53 WBC RBC Hgb Hct MCH RDW Lymph % (Auto) [place] % (Auto) Lymph # [place] # Seg Neutrophils % Seg Neutrophils # PT INR APTT Heparin Anti-Xa Level POC ABG pH POC ABG pCO2 POC ABG pO2 Sodium Potassium Chloride Carbon Dioxide BUN Creatinine Glucose POC Glucose 297 H 290 H 211 H Hemoglobin A1c Lactic Acid Calcium Phosphorus AST Alkaline Phosphatase NT-Pro-B Natriuret Pep Total Protein Albumin 10/12/18 10/12/18 10/13/18 18:57 21:35 04:50 WBC 11.8 H RBC 3.08 L Hgb 7.4 L Hct 24.2 L MCH 24 L RDW 21.5 H Lymph % (Auto) [place] % (Auto) Lymph # [place] # Seg Neutrophils % Seg Neutrophils # PT INR APTT Heparin Anti-Xa Level 1.74 H POC ABG pH 7.497 H POC ABG pCO2 33.2 L POC ABG pO2 71 L Sodium Potassium Chloride Carbon Dioxide BUN Creatinine Glucose POC Glucose Hemoglobin A1c Lactic Acid Calcium Phosphorus AST Alkaline Phosphatase NT-Pro-B Natriuret Pep Total Protein Albumin 05/09/19 05/09/19 05/09/19 05:25 05:25 05:37 WBC 12.1 H RBC 3.02 L Hgb 7.4 L Hct 23.7 L MCH 25 L RDW 21.0 H Lymph % (Auto) 9.6 L [place] % (Auto) 10.0 H Lymph # [place] # 1.2 H Seg Neutrophils % 76.2 H Seg Neutrophils # 9.2 H PT INR APTT Heparin Anti-Xa Level POC ABG pH POC ABG pCO2 POC ABG pO2 Sodium Potassium Chloride Carbon Dioxide BUN Creatinine 1.6 H Glucose 175 H POC Glucose 165 H Hemoglobin A1c Lactic Acid Calcium 8.3 L Phosphorus AST Alkaline Phosphatase NT-Pro-B Natriuret Pep Total Protein Albumin 10/13/18 10/13/18 10/13/18 06:45 11:12 17:19 WBC RBC Hgb Hct MCH RDW Lymph % (Auto) [place] % (Auto) Lymph # [place] # Seg Neutrophils % Seg Neutrophils # PT 17.4 H INR 1.34 H APTT Heparin Anti-Xa Level POC ABG pH POC ABG pCO2 POC ABG pO2 Sodium Potassium Chloride Carbon Dioxide BUN Creatinine Glucose POC Glucose 223 H 129 H Hemoglobin A1c Lactic Acid Calcium Phosphorus AST Alkaline Phosphatase NT-Pro-B Natriuret Pep Total Protein Albumin 10/13/18 10/14/18 10/14/18 23:39 05:01 06:14 WBC RBC Hgb Hct MCH RDW Lymph % (Auto) [place] % (Auto) Lymph # [place] # Seg Neutrophils % Seg Neutrophils # PT INR APTT Heparin Anti-Xa Level POC ABG pH POC ABG pCO2 POC ABG pO2 Sodium Potassium Chloride Carbon Dioxide BUN Creatinine 1.5 H Glucose 264 H POC Glucose 171 H 226 H Hemoglobin A1c Lactic Acid Calcium 8.0 L Phosphorus AST Alkaline Phosphatase NT-Pro-B Natriuret Pep Total Protein Albumin 10/14/18 10/14/18 10/14/18 06:14 12:24 19:33 WBC RBC Hgb Hct MCH RDW Lymph % (Auto) [place] % (Auto) Lymph # [place] # Seg Neutrophils % Seg Neutrophils # PT 22.1 H INR 1.80 H APTT Heparin Anti-Xa Level POC ABG pH POC ABG pCO2 POC ABG pO2 Sodium Potassium Chloride Carbon Dioxide BUN Creatinine Glucose POC Glucose 403 H 164 H Hemoglobin A1c Lactic Acid Calcium Phosphorus AST Alkaline Phosphatase NT-Pro-B Natriuret Pep Total Protein Albumin 10/15/18 10/15/18 10/15/18 00:29 06:03 07:00 WBC RBC Hgb Hct MCH RDW Lymph % (Auto) [place] % (Auto) Lymph # [place] # Seg Neutrophils % Seg Neutrophils # PT INR APTT Heparin Anti-Xa Level POC ABG pH POC ABG pCO2 POC ABG pO2 Sodium Potassium Chloride Carbon Dioxide BUN 20 H Creatinine 1.7 H Glucose 308 H POC Glucose 237 H 282 H Hemoglobin A1c Lactic Acid Calcium 7.6 L Phosphorus AST Alkaline Phosphatase NT-Pro-B Natriuret Pep Total Protein Albumin 10/15/18 10/15/18 07:00 08:03 WBC RBC Hgb 5.8 L* Hct 18.5 L* MCH RDW Lymph % (Auto) [place] % (Auto) Lymph # [place] # Seg Neutrophils % Seg Neutrophils # PT 46.1 H INR 4.52 H APTT Heparin Anti-Xa Level 0.25 L POC ABG pH POC ABG pCO2 POC ABG pO2 Sodium Potassium Chloride Carbon Dioxide BUN Creatinine Glucose POC Glucose Hemoglobin A1c Lactic Acid Calcium Phosphorus AST Alkaline Phosphatase NT-Pro-B Natriuret Pep Total Protein Albumin
--- NOTE | 2018-10-15 11:48 | Progress Note ---
Assessment and Plan critically ill given severe and worsening anemia (hg - 5.8 this am), agree risk of systemic anticoagulation is life-threatening (h/o MVR) and outweighs benefit at this point in time. Would transfuse and discontinue heparin/Coumadin for now. Will restart heparin as soon as h/h/ is reasonably stable. GI is on board. Will watch closely. - Patient Problems (1) Acute on chronic renal failure Current Visit: Yes Status: Acute (2) Acute respiratory failure Current Visit: Yes Status: Acute (3) Altered mental status Current Visit: Yes Status: Acute (4) Anemia Current Visit: Yes Status: Chronic (5) H/O mitral valve replacement with mechanical valve Current Visit: Yes Status: Chronic (6) History of GI bleed Current Visit: Yes Status: Chronic (7) ASHELY (acute kidney injury) Current Visit: No Status: Acute (8) Accelerated hypertension Current Visit: No Status: Acute (9) ESRD (end stage renal disease) on dialysis Current Visit: No Status: Acute (10) Malnutrition Current Visit: No Status: Acute (11) Metabolic acidosis Current Visit: No Status: Acute (12) Metabolic encephalopathy Current Visit: No Status: Acute Subjective Date of service: 10/15/18 Principal diagnosis: Ac hypoxemic resp failure; Seizures (?hypoglycemic); Ac encephalopathy(T/M) Interval history: lethargic Objective Vital Signs Temp Pulse Pulse Resp BP Pulse Ox 10/15/18 09:40 96 10/15/18 07:00 114 H 25 H 121/61 95 10/15/18 06:30 106 H 33 H 121/61 99 10/15/18 06:00 109 H 22 121/61 96 10/15/18 05:30 104 H 29 H 121/61 100 10/15/18 05:00 109 H 34 H 113/64 100 10/15/18 04:30 107 H 33 H 113/64 99 10/15/18 04:00 108 H 114 H 35 H 125/65 99 10/15/18 03:30 115 H 24 138/72 91 10/15/18 03:00 107 H 32 H 99/54 98 10/15/18 02:30 107 H 33 H 103/58 98 10/15/18 02:00 107 H 26 H 91/48 68 L 10/15/18 01:30 106 H 30 H 98/43 94 10/15/18 01:00 110 H 29 H 136/48 98 10/15/18 00:30 110 H 22 136/48 98 10/15/18 00:00 99.2 F 106 H 119 H 26 H 163/90 97 10/14/18 23:30 116 H 33 H 160/85 96 10/14/18 23:00 117 H 26 H 163/90 95 10/14/18 22:30 122 H 19 154/80 96 10/14/18 22:00 114 H 22 154/80 99 10/14/18 21:30 118 H 24 151/79 95 10/14/18 21:00 119 H 27 H 159/97 84 10/14/18 20:30 123 H 11 L 159/97 86 10/14/18 20:12 117 H 34 H 146/87 89 10/14/18 20:00 98.3 F 116 H 118 H 33 H 161/90 93 10/14/18 19:30 104 H 17 159/86 95 10/14/18 19:00 111 H 24 150/81 95 10/14/18 18:30 108 H 19 140/74 91 10/14/18 18:00 114 H 11 L 140/74 90 10/14/18 17:30 104 H 15 136/81 87 10/14/18 17:00 103 H 16 119/58 92 10/14/18 16:30 105 H 19 119/58 97 10/14/18 16:00 98.3 F 124 H 105 H 22 125/62 91 10/14/18 15:30 123 H 25 H 124/70 91 10/14/18 15:00 119 H 28 H 124/70 93 10/14/18 14:30 119 H 34 H 128/72 93 10/14/18 14:00 119 H 26 H 132/77 99 10/14/18 13:30 115 H 22 139/77 100 10/14/18 13:00 118 H 31 H 141/91 94 10/14/18 12:30 128 H 29 H 141/95 86 10/14/18 12:01 117 H 14 141/95 90 10/14/18 12:00 98.8 F 110 H 22 94 - Physical Examination General: No Apparent Distress, Other (lethargic) HEENT: Positive: PERRL Neck: Positive: neck supple Neuro: Positive: Grossly Intact (lethargic) Abdomen: Negative: Tender Skin: Negative: Rash Extremities: Present: edema (generalized ) - Labs and Meds Coagulation 10/15/18 Range/Units 07:00 PT 46.1 H (12.2-14.9) Sec. INR 4.52 H (0.87-1.13) CBC 10/15/18 Range/Units 08:03 Hgb 5.8 L* (10.1-14.3) gm/dl Hct 18.5 L* (30.3-42.9) % Plt Count 246 (140-440) K/mm3 Comprehensive Metabolic Panel 10/15/18 Range/Units 07:00 Sodium 138 (137-145) mmol/L Potassium 4.0 (3.6-5.0) mmol/L Chloride 98.0 (98-107) mmol/L Carbon Dioxide 23 (22-30) mmol/L BUN 20 H (7-17) mg/dL Creatinine 1.7 H (0.7-1.2) mg/dL Glucose 308 H (65-100) mg/dL Calcium 7.6 L (8.4-10.2) mg/dL - Imaging and Cardiology EKG: report reviewed, image reviewed Echo: report reviewed (07/2018: EF 40%, mild to mod LVH, LA and RA dilated, mod TR and NC, mechanical valve in mitral position that appears to be functioning properly. 10/2018: EF 35-40%, mod LVH, abnormal diastolic function, LA severely dilated, mechanical MV appears well seated with normal function, mod pulm HTN. 11/2016 showed EF 40-45%, abnormal diastolic function, trace MR, mild TR, RVSP 36mmHg. ) - EKG Sinus rhythms and dysrhythmias: sinus rhythm Chamber hypertrophy or enlargement: left ventricular hypertro - Allied health notes Allied health notes reviewed: nursing
--- NOTE | 2018-10-15 11:52 | Progress Note ---
Subjective Principal diagnosis: Ac hypoxemic resp failure; Seizures (?hypoglycemic); Ac encephalopathy(T/M) Interval history: Patient was seen today for follow-up of multiple renal related issues No complaints of any chest pain pressure or shortness of breath very poor historian, has some encephalopathy Interdisciplinary notes that also reviewed Events of 24 hours vitals labs intake output medications were reviewed Past medical history: Reviewed Family history: Reviewed Social history: Reviewed Allergies: Reviewed Physical examination: Vitals: Reviewed HEENT: patient has pallor or icterus oral mucosa moist Neck: Supple no JVD no thyromegaly Chest: Bilateral clear to auscultation anteriorly Heart: Regular rate and rhythm S1-S2 heard no S3-S4 Abdomen: Soft nontender no voluntary guarding rigidity rebound Extremity: Dry skin less than 1+ peripheral edema Psychiatric: No evidence of agitation and aggression noted Dermatology: No petechial rashes Labs and x-rays: Reviewed from today Assessment and plan Acute kidney injury: Renal function improving, appears to be stable, Electrolytes appear to be stable, ultrasound was unremarkable Recovering from sepsis Also has seizure disorder Being followed by urology Baseline creatinine around 1.6 ejection fraction 40% Continue to monitor renal function Avoid nephrotoxic medicationsmultiple comorbidities We'll sign off the case please call if needed Objective - Vital Signs Vital signs: Vital Signs - 12hr 10/15/18 10/15/18 10/15/18 00:00 00:30 01:00 Temperature 99.2 F Pulse Rate 106 H 110 H 110 H Pulse Rate [ 119 H Right Dorsalis Pedis] Respiratory 26 H 22 29 H Rate Blood Pressure 163/90 136/48 136/48 O2 Sat by Pulse 97 98 98 Oximetry 10/15/18 10/15/18 10/15/18 01:30 02:00 02:30 Temperature Pulse Rate 106 H 107 H 107 H Pulse Rate [ Right Dorsalis Pedis] Respiratory 30 H 26 H 33 H Rate Blood Pressure 98/43 91/48 103/58 O2 Sat by Pulse 94 68 L 98 Oximetry 10/15/18 10/15/18 10/15/18 03:00 03:30 04:00 Temperature Pulse Rate 107 H 115 H 108 H Pulse Rate [ 114 H Right Dorsalis Pedis] Respiratory 32 H 24 35 H Rate Blood Pressure 99/54 138/72 125/65 O2 Sat by Pulse 98 91 99 Oximetry 10/15/18 10/15/18 10/15/18 04:30 05:00 05:30 Temperature Pulse Rate 107 H 109 H 104 H Pulse Rate [ Right Dorsalis Pedis] Respiratory 33 H 34 H 29 H Rate Blood Pressure 113/64 113/64 121/61 O2 Sat by Pulse 99 100 100 Oximetry 10/15/18 10/15/18 10/15/18 06:00 06:30 07:00 Temperature Pulse Rate 109 H 106 H 114 H Pulse Rate [ Right Dorsalis Pedis] Respiratory 22 33 H 25 H Rate Blood Pressure 121/61 121/61 121/61 O2 Sat by Pulse 96 99 95 Oximetry 10/15/18 09:40 Temperature Pulse Rate Pulse Rate [ Right Dorsalis Pedis] Respiratory Rate Blood Pressure O2 Sat by Pulse 96 Oximetry - Lab 10/15/18 08:03 10/15/18 07:00 Most recent lab results Calcium 7.6 mg/dL (8.4-10.2) L 10/15/18 07:00 Phosphorus 7.40 mg/dL (2.5-4.5) H 10/07/18 22:08 Magnesium 1.90 mg/dL (1.7-2.3) 10/08/18 04:05 Medications & Allergies - Medications Allergies/Adverse Reactions: Allergies No Known Allergies Allergy (Verified 12/03/16 23:01) Home Medications: Home Medications Medication Instructions Recorded Confirmed Last Taken Type Metoprolol [Lopressor TAB] 25 mg PO BID #60 tablet 12/29/16 08/11/18 Unknown Rx Famotidine [Pepcid] 20 mg PO DAILY #30 tablet 02/04/17 08/07/18 Unknown Rx Metoprolol [Lopressor TAB] 50 mg PO TID #90 tablet 02/04/17 08/07/18 Unknown Rx Coumadin 5 mg PO .ASDIR #30 08/13/18 Unknown Rx Ferrous Sulfate [Feosol 325 MG tab] 325 mg PO BID #60 tablet 08/13/18 Unknown Rx Folic Acid [Folvite] 1 mg PO QDAY #30 tablet 08/13/18 Unknown Rx Furosemide [Lasix TAB] 40 mg PO DAILY #30 tablet 08/13/18 08/07/18 Unknown Rx Insulin Glargine [Lantus VIAL] 5 units SUB-Q BIDDIAB 30 Days 08/13/18 Unknown Rx units Multivitamin Tab [Multiple Vitamin 1 each PO QDAY #30 tablet 08/13/18 Unknown Rx TAB (Theragran)] Pantoprazole [Protonix TAB] 40 mg PO DAILY #30 tablet 08/13/18 Unknown Rx Thiamine [Vitamin B-1] 100 mg PO QDAY #30 tablet 08/13/18 Unknown Rx Warfarin [Coumadin] 7.5 mg PO .ASDIR 30 Days tablet 08/13/18 Unknown Rx Active Medications: Generic Name Dose Route Start Last Admin Trade Name Abby PRN Reason Stop Dose Admin Acetaminophen 650 mg 10/07/18 04:59 10/12/18 12:47 Tylenol PO 650 mg Q4H PRN Administration Pain MILD(1-3)/Fever >100.5/RODRIGUEZ Lipase/Protease/Amylase 1 each 10/08/18 10:00 Pancreangelica Arredondo 10,500 Unit FEEDTUBE PRN PRN For Clogged Feeding Tube Dextrose 50 ml 10/07/18 20:42 10/10/18 05:46 D50w (25gm) Syringe IV 50 ml PRN PRN Administration Hypoglycemia Fentanyl 50 mcg 10/07/18 09:07 10/12/18 09:05 Sublimaze IV 50 mcg Q10MIN PRN Administration ANALGESIA Hydralazine HCl 10 mg 10/07/18 05:07 10/14/18 08:35 Apresoline IV 10 mg Q4H PRN Administration Blood Pressure Hydrophilic Ointment 1 applic 10/07/18 02:40 Vaseline Lip Therapy TP Q2HR PRN Dry Lips Heparin Sodium/Sodium Chloride 25,000 unit in 500 mls @ 20 mls/hr 10/11/18 15:00 10/15/18 06:38 Heparin/ 0.45% Nacl-25,000 Unit/500 Ml IV 850 units/hr TITR ULI 17 mls/hr Administration Protocol 1,000 UNITS/HR Insulin Glargine 5 units 10/12/18 12:00 10/14/18 10:00 Lantus SUB-Q 5 units DAILY ULI Administration Insulin Human Lispro 0 unit 10/09/18 00:00 10/15/18 00:27 Humalog SUB-Q 2 unit Q6HR ULI Administration Protocol Lansoprazole 30 mg 10/15/18 10:00 Prevacid Solutab FEEDTUBE QDAY ULI Metoclopramide HCl 10 mg 10/11/18 13:00 10/12/18 19:32 Reglan IV 10 mg Q6HR PRN Administration Nausea And Vomiting Metoprolol Tartrate 50 mg 10/14/18 08:40 10/14/18 22:18 Lopressor PO 50 mg TID ULI Administration Midazolam HCl 2 mg 10/07/18 06:03 10/12/18 04:21 Versed IV 2 mg Q10MIN PRN Administration Sedation Multi-Ingred Cream/Lotion/Oil/Oint 1 applic 10/07/18 02:40 Artificial Tears Ophth Oint OU Q4HR PRN Dry Eye(s) Ondansetron HCl 4 mg 10/07/18 04:59 Zofran IV Q8H PRN N/V unrelieved by Kojo Quetiapine Fumarate 100 mg 10/09/18 22:00 10/14/18 22:15 Seroquel PO 100 mg QHS ULI Administration Simple Syrup 15 ml 10/08/18 10:00 Simple Syrup FEEDTUBE PRN PRN Hypoglycemia Simple Syrup 30 ml 10/08/18 10:00 10/09/18 01:09 Simple Syrup FEEDTUBE 30 ml PRN PRN Administration Hypoglycemia Sodium Bicarbonate 325 mg 10/08/18 10:00 Sodium Bicarbonate FEEDTUBE PRN PRN For Clogged Feeding Tube Sodium Chloride 10 ml 10/07/18 10:00 10/14/18 22:16 Sodium Chloride Flush Syringe 10 Ml IV 10 ml BID ULI Administration Sodium Chloride 10 ml 10/07/18 04:59 Sodium Chloride Flush Syringe 10 Ml IV PRN PRN LINE FLUSH
--- NOTE | 2018-10-15 15:44 | Gastroenterology Progress Note ---
Assessment and Plan - Patient Problems (1) Acute anemia Current Visit: Yes Status: Acute Plan to address problem: - EGD 08/2018 with moderate gastritis; colonoscopy not done at that time. - Current INR 4.5; will stop coumadin and heparin. - Consider repeat EGD/colonoscopy on Wednesday pending coags and clinical health at that time; the patient has significant and severe comorbids that would make endoscopy at increased risk. - If hct continues to fall despite lack of obvious GI output, would also recommend abdominal CT to rule out retroperitoneal, or peritoneal, bleeding. Subjective Date of service: 10/15/18 Principal diagnosis: Anemia Interval history: We are called back to see the patient for recurrent anemia. She had a drop in her hgb today after resumption of coumadin/heparin for her heart valve. She has had a brown stool this morning, without melena or hematemesis. She is tolerating tube feeds. She has no obvious abdominal pain. Objective - Constitutional Vitals: Temp Pulse Resp BP Pulse Ox 100.0 F H 110 H 17 128/60 99 10/15/18 13:47 10/15/18 14:20 10/15/18 14:20 10/15/18 14:20 10/15/18 14:20 General appearance: no acute distress - Respiratory Respiratory effort: normal Respiratory: bilateral: CTA - Cardiovascular Rhythm: irregularly irregular Heart Sounds: Present: S1 & S2, systolic murmur - Gastrointestinal General gastrointestinal: Present: soft, non-tender, non-distended - Labs CBC & Chem 7: 10/15/18 08:03 10/15/18 07:00 Labs: Laboratory Results - last 24 hr 10/14/18 10/15/18 10/15/18 19:33 00:29 06:03 Hgb Hct Plt Count PT INR Heparin Anti-Xa Level Sodium Potassium Chloride Carbon Dioxide Anion Gap BUN Creatinine Estimated GFR BUN/Creatinine Ratio Glucose POC Glucose 164 H 237 H 282 H Calcium Blood Type Antibody Screen Crossmatch 10/15/18 10/15/18 10/15/18 07:00 07:00 08:03 Hgb 5.8 L* Hct 18.5 L* Plt Count 246 PT 46.1 H INR 4.52 H Heparin Anti-Xa Level 0.25 L Sodium 138 Potassium 4.0 Chloride 98.0 Carbon Dioxide 23 Anion Gap 21 BUN 20 H Creatinine 1.7 H Estimated GFR 39 BUN/Creatinine Ratio 12 Glucose 308 H POC Glucose Calcium 7.6 L Blood Type Antibody Screen Crossmatch 10/15/18 10:27 Hgb Hct Plt Count PT INR Heparin Anti-Xa Level Sodium Potassium Chloride Carbon Dioxide Anion Gap BUN Creatinine Estimated GFR BUN/Creatinine Ratio Glucose POC Glucose Calcium Blood Type O POSITIVE Antibody Screen Negative Crossmatch See Detail
[2018-10-15] MEDS: SODIUM CHLORIDE FLUSH SYRINGE 10 ML IV SCH (22:00)
[2018-10-16] MEDS: HumaLOG SUB-Q SCH ×6 (06:00→17:29)
[2018-10-16] MEDS: LOPRESSOR PO SCH ×3 (08:20→19:08)
--- NOTE | 2018-10-16 09:02 | Progress Note ---
Assessment and Plan Assessment and plan: 48 year old woman with history of coronary artery disease, status post cabbage, diabetes, hypertension who was brought to the emergency room for altered mental status. She was found to have hypoglycemia, she was also having convulsions at the time of admission. The patient was intubated, sp dextrose she was put on the ventilator she was found to have pneumonia and CHF flare and started on antibiotics. patient has history of MV replacement and was on anticoagulation. Pneumonia, severe sepsis - Patient was on IV antibiotics and completed on 10/13 per ID - Chest x-ray right lower lobe infiltrates, right pleural effusion - Lactic acid is improving Acute respiratory failure on MV >96 hrs Was intubated and on mechanical ventilation - patient was extubated on 10/13 - Saturating well on 2 L of intranasal oxygen status epilepticus; Seizures when most likely due to hypoglycemia -Treated with dextrose -, neurology consult appreciated Acute on chronic systolic CHF EF 40%, dilated ventricles - on bumex, optimize meds, cardiology consult History of [facility] mitral valve replacement/hypercoaguable state/coagulopathy due to warfarin INR >4, warfarin on hold -very sensitive to warfain and gets supratherapeutic very quickly after a few doses, hematology consulted Severe anemia - Patient's hemoglobin dropped to 5. 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, treated as type 1, uncontrolled, a1c 10.2 Continue insulins, brittle DM with episodes of hypoglycemia and hyperglycemia, labile glc Mazin upon ckd stage 3, vasomotor nephropathy and likely ATN from sepsis Nephrology input appreciated, avoid nephrotoxins, neph signed off on 10/15 hypernatremia resolved after she received hypotonic ivf Hyperkalemia resolved with insulin and diuretics htn urgency; optimized bp meds Marijuana abuse; was counseled, preventive health counseling, done 17 mins spent dvt ppx- chemical, CCT 33 mins History Interval history: Review of systems Constitutional: No fevers, no malaise, no joint pains CVS: No chest pain, no pedal edema, c/o orthopnea and TORO GI:no hematemesis, blood in stool or melena, No abdominal pain, no diarrhea, no vomiting, no constipation Respiratory: No cough or wheezing Hospitalist Physical - Physical exam Narrative exam: General.: appears well HEENT: Moist mucous membranes, extraocular muscles intact, no lymphadenopathy Neck: supple Cardiac: S1-S2 heard Lungs: rales in bases Abdomen: soft , nontender, nondistended, bowel sounds positive Extremities: no edema clubbing or cyanosis Skin: no rash or lesions Neurologic: no focal deficit Psych: calm and cooperative - Constitutional Vitals: Temp Pulse Resp BP Pulse Ox 99 F 104 H 26 H 153/88 98 10/16/18 04:00 10/16/18 06:31 10/16/18 06:31 10/16/18 06:31 10/16/18 06:31 General appearance: Present: other (intubated, eyes open, no purposeful response to commands) Results - Labs CBC & Chem 7: 10/17/18 05:00 10/17/18 05:00 Labs: Laboratory Last Values WBC 12.1 K/mm3 (4.5-11.0) H 10/13/18 05:25 RBC 3.02 M/mm3 (3.65-5.03) L 10/13/18 05:25 Hgb 5.8 gm/dl (10.1-14.3) L* 10/15/18 08:03 Hct 18.5 % (30.3-42.9) L* 10/15/18 08:03 MCV 79 fl (79-97) 10/13/18 05:25 MCH 25 pg (28-32) L 10/13/18 05:25 MCHC 31 % (30-34) 10/13/18 05:25 RDW 21.0 % (13.2-15.2) H 10/13/18 05:25 Plt Count 246 K/mm3 (140-440) 10/15/18 08:03 Lymph % (Auto) 9.6 % (13.4-35.0) L 10/13/18 05:25 [place] % (Auto) 10.0 % (0.0-7.3) H 10/13/18 05:25 Eos % (Auto) 3.7 % (0.0-4.3) 10/13/18 05:25 Baso % (Auto) 0.5 % (0.0-1.8) 10/13/18 05:25 Lymph # 1.2 K/mm3 (1.2-5.4) 10/13/18 05:25 [place] # 1.2 K/mm3 (0.0-0.8) H 10/13/18 05:25 Eos # 0.4 K/mm3 (0.0-0.4) 10/13/18 05:25 Baso # 0.1 K/mm3 (0.0-0.1) 10/13/18 05:25 Seg Neutrophils % 76.2 % (40.0-70.0) H 10/13/18 05:25 Seg Neutrophils # 9.2 K/mm3 (1.8-7.7) H 10/13/18 05:25 PT 46.1 Sec. (12.2-14.9) H 10/15/18 07:00 INR 4.52 (0.87-1.13) H 10/15/18 07:00 APTT 54.9 Sec. (24.2-36.6) H 10/11/18 14:25 Heparin Anti-Xa Level 0.25 U.I./ml (0.3-0.7) L 10/15/18 07:00 POC ABG pH 7.426 (7.35-7.45) 10/13/18 09:41 POC ABG pCO2 37.2 (35-45) 10/13/18 09:41 POC ABG pO2 71 (80-105) L 10/13/18 04:50 POC ABG HCO3 24.4 (22-26 mml/L) 10/13/18 09:41 POC ABG Total CO2 26 (23-27mmol/L) 10/13/18 09:41 POC ABG O2 Sat 70 10/13/18 09:41 POC ABG Base Excess 0 ((-2) - (+3)mmol/L) 10/13/18 09:41 30 % 10/13/18 09:41 Sodium 138 mmol/L (137-145) 10/15/18 07:00 Potassium 4.0 mmol/L (3.6-5.0) 10/15/18 07:00 Chloride 98.0 mmol/L (98-107) 10/15/18 07:00 Carbon Dioxide 23 mmol/L (22-30) 10/15/18 07:00 21 mmol/L 10/15/18 07:00 BUN 20 mg/dL (7-17) H 10/15/18 07:00 1.7 mg/dL (0.7-1.2) H 10/15/18 07:00 Estimated GFR 39 ml/min 10/15/18 07:00 12 % 10/15/18 07:00 Glucose 308 mg/dL (65-100) H 10/15/18 07:00 POC Glucose 96 (70-105) 10/15/18 17:34 10.2 % (4-6) H 10/07/18 22:08 Lactic Acid 1.50 mmol/L (0.7-2.0) 10/08/18 17:09 Calcium 7.6 mg/dL (8.4-10.2) L 10/15/18 07:00 Phosphorus 7.40 mg/dL (2.5-4.5) H 10/07/18 22:08 Magnesium 1.90 mg/dL (1.7-2.3) 10/08/18 04:05 0.20 mg/dL (0.1-1.2) 10/08/18 04:05 < 0.2 mg/dL (0-0.2) 10/07/18 02:43 0.5 mg/dL 10/07/18 02:43 AST 26 units/L (5-40) 10/08/18 04:05 ALT 22 units/L (7-56) 10/08/18 04:05 155 units/L (35-129) H 10/08/18 04:05 40.0 umol/L (25-60) 10/07/18 02:43 < 0.010 ng/mL (0.00-0.029) 10/07/18 08:59 0.20 mg/dL (0.00-1.30) 10/07/18 14:55 NT-Pro-B Natriuret Pep 2865 pg/mL (0-450) H 10/09/18 03:20 5.2 g/dL (6.3-8.2) L D 10/08/18 04:05 2.6 g/dL (3.9-5) L 10/08/18 04:05 1.0 % 10/08/18 04:05 Straw (Yellow) 10/07/18 02:34 Clear (Clear) 10/07/18 02:34 7.0 (5.0-7.0) 10/07/18 02:34 Ur Specific [place] 1.006 (1.003-1.030) 10/07/18 02:34 100 mg/dl mg/dL (Negative) 10/07/18 02:34 Neg mg/dL (Negative) 10/07/18 02:34 Neg mg/dL (Negative) 10/07/18 02:34 Sm (Negative) 10/07/18 02:34 Neg (Negative) 10/07/18 02:34 Neg (Negative) 10/07/18 02:34 < 2.0 mg/dL (<2.0) 10/07/18 02:34 Ur Leukocyte Esterase Tr (Negative) 10/07/18 02:34 1.0 /HPF (0.0-6.0) 10/07/18 02:34 5.0 /HPF (0.0-6.0) 10/07/18 02:34 U Epithel Cells (Auto) 1.0 /HPF (0-13.0) 10/07/18 02:34 Hyaline Casts 3 /LPF 10/07/18 02:34 Few /HPF 10/07/18 02:34 Presumptive negative 10/07/18 02:34 Presumptive negative 10/07/18 02:34 Ur Barbiturates Screen Presumptive negative 10/07/18 02:34 Ur Phencyclidine Scrn Presumptive negative 10/07/18 02:34 Ur Amphetamines Screen Presumptive negative 10/07/18 02:34 U Benzodiazepines Scrn Presumptive negative 10/07/18 02:34 Presumptive negative 10/07/18 02:34 U Marijuana (THC) Screen Presumptive positive 10/07/18 02:34 Disclamer 10/07/18 02:34 Blood Type O POSITIVE 10/15/18 10:27 Antibody Screen Negative 10/15/18 10:27 Crossmatch See Detail 10/15/18 10:27 Active Medications - Current Medications Current Medications: Generic Name Dose Route Start Last Admin Trade Name Freq PRN Reason Stop Dose Admin Acetaminophen 650 mg 10/07/18 04:59 10/12/18 12:47 Tylenol PO 650 mg Q4H PRN Administration Pain MILD(1-3)/Fever >100.5/RODRIGUEZ Lipase/Protease/Amylase 1 each 10/08/18 10:[address] 10,500 Unit FEEDTUBE PRN PRN For Clogged Feeding Tube Dextrose 50 ml 10/07/18 20:42 10/10/18 05:46 D50w (25gm) Syringe IV 50 ml PRN PRN Administration Hypoglycemia Fentanyl 50 mcg 10/07/18 09:07 10/12/18 09:05 Sublimaze IV 50 mcg Q10MIN PRN Administration ANALGESIA Hydralazine HCl 10 mg 10/07/18 05:07 10/14/18 08:35 Apresoline IV 10 mg Q4H PRN Administration Blood Pressure Hydrophilic Ointment 1 applic 10/07/18 02:40 Vaseline Lip Therapy TP Q2HR PRN Dry Lips Insulin Glargine 5 units 10/12/18 12:00 10/14/18 10:00 Lantus SUB-Q 5 units DAILY ULI Administration Insulin Human Lispro 0 unit 10/09/18 00:00 10/15/18 00:27 Humalog SUB-Q 2 unit Q6HR ULI Administration Protocol Lansoprazole 30 mg 10/15/18 10:00 Prevacid Solutab FEEDTUBE QDAY ULI Metoclopramide HCl 10 mg 10/11/18 13:00 10/12/18 19:32 Reglan IV 10 mg Q6HR PRN Administration Nausea And Vomiting Metoprolol Tartrate 50 mg 10/14/18 08:40 10/14/18 22:18 Lopressor PO 50 mg TID ULI Administration Midazolam HCl 2 mg 10/07/18 06:03 10/12/18 04:21 Versed IV 2 mg Q10MIN PRN Administration Sedation Multi-Ingred Cream/Lotion/Oil/Oint 1 applic 10/07/18 02:40 Artificial Tears Ophth Oint OU Q4HR PRN Dry Eye(s) Ondansetron HCl 4 mg 10/07/18 04:59 Zofran IV Q8H PRN N/V unrelieved by Reglan Quetiapine Fumarate 100 mg 10/09/18 22:00 10/14/18 22:15 Seroquel PO 100 mg QHS ULI Administration Simple Syrup 15 ml 10/08/18 10:00 Simple Syrup FEEDTUBE PRN PRN Hypoglycemia Simple Syrup 30 ml 10/08/18 10:00 10/09/18 01:09 Simple Syrup FEEDTUBE 30 ml PRN PRN Administration Hypoglycemia Sodium Bicarbonate 325 mg 10/08/18 10:00 Sodium Bicarbonate FEEDTUBE PRN PRN For Clogged Feeding Tube Sodium Chloride 10 ml 10/07/18 10:00 10/14/18 22:16 Sodium Chloride Flush Syringe 10 Ml IV 10 ml BID ULI Administration Sodium Chloride 10 ml 10/07/18 04:59 Sodium Chloride Flush Syringe 10 Ml IV PRN PRN LINE FLUSH Nutrition/Malnutrition Assess - Dietary Evaluation Nutrition/Malnutrition Findings: Nutrition Notes Start: 10/07/18 12:17 Freq: Status: Active Protocol: Document 10/13/18 09:36 CP (Rec: 10/13/18 09:38 CP [id number]) Co-Sign 10/13/18 09:36 LP Nutrition Notes Initial or Follow up Brief Note Subjective/Other Information F/U for TF to start and pt screened for DNI. TF was infusing at goal rate during time of visit. Pt will be extubated today as discussed in rounds. Nutrition Intervention Follow-Up By: 10/17/18 Additional Comments F/U: Diet advancement/coumadin
[2018-10-16] MEDS: PREVACID SOLUTAB FEEDTUBE SCH (10:00)
[2018-10-16] MEDS: SODIUM CHLORIDE FLUSH SYRINGE 10 ML IV SCH ×3 (10:17→21:08)
[2018-10-16 10:34] LABS: Basophils # (Auto) 0.2 K/mm3 (0.0-0.1); Basophils % (Auto) 1.1 % (0.0-1.8); Eosinophils # (Auto) 0.2 K/mm3 (0.0-0.4); Eosinophils % (Auto) 1.7 % (0.0-4.3); Hematocrit 24.9 % (30.3-42.9); Hemoglobin 8.2 gm/dl (10.1-14.3); Lymphocytes # (Auto) 0.8 K/mm3 (1.2-5.4); Lymphocytes % (Auto) 5.7 % (13.4-35.0); Mean Corpuscular HGB Conc 33 % (30-34); Mean Corpuscular Volume 82 fl (79-97); Monocytes # (Auto) 1.1 K/mm3 (0.0-0.8); Monocytes % (Auto) 7.2 % (0.0-7.3); Platelet Count 272 K/mm3 (140-440); Red Blood Count 3.03 M/mm3 (3.65-5.03); Red Cell Distribution Width 19.2 % (13.2-15.2)
[2018-10-16 10:54] LABS: INR 5.48 (0.87-1.13)
[2018-10-16 11:05] LABS: Calcium 7.8 mg/dL (8.4-10.2)
--- NOTE | 2018-10-16 11:12 | Progress Note ---
Assessment and Plan critically ill anemia improved after transfusion inr elevated but likely autoanticaog due to critically ill state restart iv heparin if ok w/ GI (given h/o mechanical MVR) Will watch closely. - Patient Problems (1) Acute on chronic renal failure Current Visit: Yes Status: Acute (2) Acute respiratory failure Current Visit: Yes Status: Acute (3) Altered mental status Current Visit: Yes Status: Acute (4) Anemia Current Visit: Yes Status: Chronic (5) H/O mitral valve replacement with mechanical valve Current Visit: Yes Status: Chronic (6) History of GI bleed Current Visit: Yes Status: Chronic (7) ASHELY (acute kidney injury) Current Visit: No Status: Acute (8) Accelerated hypertension Current Visit: No Status: Acute (9) ESRD (end stage renal disease) on dialysis Current Visit: No Status: Acute (10) Malnutrition Current Visit: No Status: Acute (11) Metabolic acidosis Current Visit: No Status: Acute (12) Metabolic encephalopathy Current Visit: No Status: Acute Subjective Date of service: 10/16/18 Principal diagnosis: Ac hypoxemic resp failure; Seizures (?hypoglycemic); Ac encephalopathy(T/M) Interval history: lethargic Objective Vital Signs Temp Pulse Pulse Resp BP Pulse Ox 10/16/18 10:00 96 10/16/18 09:00 105 H 26 H 150/96 98 10/16/18 08:31 110 H 28 H 153/87 87 10/16/18 08:20 114 H 150/96 10/16/18 08:00 105 H 25 H 153/87 95 10/16/18 07:31 107 H 25 H 159/94 97 10/16/18 07:00 108 H 23 159/94 96 10/16/18 06:31 104 H 26 H 153/88 98 10/16/18 06:00 106 H 19 153/88 96 10/16/18 05:31 106 H 17 150/84 91 10/16/18 05:00 105 H 28 H 150/84 87 10/16/18 04:31 102 H 22 145/74 97 10/16/18 04:00 99 F 101 H 25 H 145/74 95 10/16/18 03:31 103 H 28 H 146/105 97 10/16/18 03:00 107 H 24 146/105 94 10/16/18 02:31 107 H 28 H 149/76 96 10/16/18 02:00 108 H 26 H 152/51 96 10/16/18 01:31 111 H 27 H 159/103 97 10/16/18 01:00 108 H 26 H 149/76 96 10/16/18 00:31 107 H 22 169/100 96 10/16/18 00:00 99 F 104 H 26 H 153/88 98 10/15/18 23:31 105 H 27 H 169/100 98 10/15/18 23:00 106 H 22 169/100 95 10/15/18 22:31 105 H 11 L 166/93 97 10/15/18 22:01 105 H 24 162/89 87 10/15/18 22:00 107 H 10/15/18 21:30 106 H 28 H 152/75 91 10/15/18 21:00 104 H 32 H 151/91 98 10/15/18 20:30 112 H 12 148/94 96 10/15/18 20:00 99 F 106 H 26 H 153/88 98 10/15/18 19:30 109 H 22 132/74 94 10/15/18 19:00 113 H 28 H 149/90 94 10/15/18 18:30 111 H 29 H 154/87 93 10/15/18 18:20 119 H 24 154/87 93 10/15/18 18:00 110 H 28 H 146/84 92 10/15/18 17:30 110 H 29 H 140/72 94 10/15/18 17:00 111 H 16 159/85 94 10/15/18 16:30 112 H 22 145/85 97 10/15/18 16:00 113 H 114 H 24 126/72 97 10/15/18 15:30 116 H 20 127/88 99 10/15/18 15:00 119 H 25 H 131/69 90 10/15/18 14:30 113 H 32 H 124/68 90 10/15/18 14:20 110 H 17 128/60 99 10/15/18 14:10 111 H 25 H 126/64 97 10/15/18 14:00 99 F 110 H 33 H 130/69 98 10/15/18 13:50 114 H 32 H 120/57 98 10/15/18 13:47 100.0 F H 113 H 31 H 120/57 98 10/15/18 13:40 114 H 16 116/50 98 10/15/18 13:30 116 H 22 116/50 97 10/15/18 13:20 115 H 22 117/61 97 10/15/18 13:17 100.9 F H 114 H 23 117/61 98 10/15/18 13:10 118 H 25 H 130/61 93 10/15/18 13:02 99.4 F 117 H 27 H 130/61 93 10/15/18 13:00 117 H 26 H 130/66 95 10/15/18 12:50 116 H 29 H 130/66 99 10/15/18 12:40 114 H 36 H 130/66 99 10/15/18 12:30 117 H 25 H 130/66 99 10/15/18 12:20 115 H 29 H 124/61 98 10/15/18 12:10 117 H 18 124/61 99 10/15/18 12:00 116 H 114 H 33 H 139/59 96 10/15/18 11:50 115 H 23 140/69 97 10/15/18 11:40 114 H 31 H 140/69 98 10/15/18 11:30 115 H 23 140/69 99 10/15/18 11:20 115 H 24 139/59 96 10/15/18 11:10 113 H 17 139/59 96 - Physical Examination General: No Apparent Distress, Other (lethargic) HEENT: Positive: PERRL Neck: Positive: neck supple Neuro: Positive: Grossly Intact (lethargic) Abdomen: Negative: Tender Skin: Negative: Rash Extremities: Present: edema (generalized ) - Labs and Meds Coagulation 10/16/18 Range/Units 10:18 PT 53.8 H (12.2-14.9) Sec. INR 5.48 H* (0.87-1.13) CBC 10/16/18 Range/Units 10:18 WBC 14.8 H (4.5-11.0) K/mm3 RBC 3.03 L (3.65-5.03) M/mm3 Hgb 8.2 L (10.1-14.3) gm/dl Hct 24.9 L D (30.3-42.9) % Plt Count 272 (140-440) K/mm3 Lymph # 0.8 L (1.2-5.4) K/mm3 [place] # 1.1 H (0.0-0.8) K/mm3 Eos # 0.2 (0.0-0.4) K/mm3 Baso # 0.2 H (0.0-0.1) K/mm3 Comprehensive Metabolic Panel 10/16/18 Range/Units 10:18 Sodium 143 (137-145) mmol/L Potassium 4.3 (3.6-5.0) mmol/L Chloride 101.5 (98-107) mmol/L Carbon Dioxide 20 L (22-30) mmol/L BUN 21 H (7-17) mg/dL Creatinine 1.5 H (0.7-1.2) mg/dL Glucose 326 H (65-100) mg/dL Calcium 7.8 L (8.4-10.2) mg/dL - Imaging and Cardiology EKG: report reviewed, image reviewed Echo: report reviewed (07/2018: EF 40%, mild to mod LVH, LA and RA dilated, mod TR and CO, mechanical valve in mitral position that appears to be functioning properly. 10/2018: EF 35-40%, mod LVH, abnormal diastolic function, LA severely dilated, mechanical MV appears well seated with normal function, mod pulm HTN. 11/2016 showed EF 40-45%, abnormal diastolic function, trace MR, mild TR, RVSP 36mmHg. ) - EKG Sinus rhythms and dysrhythmias: sinus rhythm Chamber hypertrophy or enlargement: left ventricular hypertro - Allied health notes Allied health notes reviewed: nursing
--- NOTE | 2018-10-16 11:50 | Cat Scan Report ---
PROCEDURE: CT ABDOMEN PELVIS WO CON TECHNIQUE: CT of the abdomen and pelvis was performed. No IV or oral contrast material was administer ed. Axial images and coronal and sagittal reformatted images were obtained. HISTORY: anemia, COMPARISON: None FINDINGS: There is a moderate right pleural effusion. There is extensive infiltrate in both lower lobes, left m ore than right. Within the limitations of a noncontrast exam, the visualized liver, spleen, pancreas, adrenal glands and kidneys demonstrate no significant abnormality. There are aortoiliac atherosclerotic calcifications. There is no abdominal aortic aneurysm. There is no evidence for intestinal obstruction. The appendix is normal. There is no abnormal abdominal fluid collection seen. Bladder is unremarkable. There is no abnormal pelvic fluid collection or mass seen. IMPRESSION: Extensive pulmonary infiltration involving the visualized lower lungs, left more than right. Moderate right pleural effusion. Within limitations of a noncontrast study, no acute abnormality identified in the abdomen or pelvis This document is electronically signed by Kena Dimas MD., Oct 16 2018 11:48:36 AM ET
[2018-10-16] MEDS ORDERED: HEPARIN/ 0.45% NACL-25,000 UNIT/500 ML 25,000 UNIT/500 ML BAG IV SCH ×2 (12:00)
--- NOTE | 2018-10-16 13:15 | Gastroenterology Progress Note ---
Assessment and Plan No overt bleeding and the drop in Hgb was in the setting of supratherapeutic INR. Pulm status currently impaired based upon exam this AM and the CT scan. Therefore, risks of endoscopy now outweigh benefits. Can consider repeat EGD with colonoscopy, but only once patient's pulmonary status is improved and she is cleared by pulm and cards - Patient Problems (1) Acute respiratory failure Current Visit: Yes Status: Acute (2) Heart failure with reduced ejection fraction Current Visit: Yes Status: Acute (3) Anemia Current Visit: Yes Status: Chronic (4) History of GI bleed Current Visit: Yes Status: Chronic Subjective Date of service: 10/16/18 Principal diagnosis: Ac hypoxemic resp failure; Seizures (?hypoglycemic); Ac encephalopathy(T/M) Interval history: spoke with nurse, no overt bleeding from GI tract, some blood in oral secretions Patient not responding to commands or questions No hemorrhage seen on the CT scan Objective - Constitutional Vitals: Temp Pulse Resp BP Pulse Ox 99 F 105 H 26 H 150/96 96 10/16/18 04:00 10/16/18 09:00 10/16/18 09:00 10/16/18 09:00 10/16/18 10:00 General appearance: other (not responding) - Respiratory Respiratory effort: other Respiratory: bilateral: rhonchi - Cardiovascular Rhythm: other (tachy) - Gastrointestinal General gastrointestinal: Present: soft - Labs CBC & Chem 7: 10/16/18 10:18 10/16/18 10:18 Labs: Laboratory Results - last 24 hr 10/15/18 10/15/18 10/15/18 10:27 14:03 15:30 WBC RBC Hgb Hct MCV MCH MCHC RDW Plt Count Lymph % (Auto) Lea % (Auto) Eos % (Auto) Baso % (Auto) Lymph # Lea # Eos # Baso # Seg Neutrophils % Seg Neutrophils # PT INR Sodium Potassium Chloride Carbon Dioxide Anion Gap BUN Creatinine Estimated GFR BUN/Creatinine Ratio Glucose POC Glucose 336 H 259 H Calcium Blood Type O POSITIVE Antibody Screen Negative Crossmatch See Detail 10/15/18 10/16/18 10/16/18 17:34 10:18 10:18 WBC 14.8 H RBC 3.03 L Hgb 8.2 L Hct 24.9 L D MCV 82 MCH 27 L MCHC 33 RDW 19.2 H Plt Count 272 Lymph % (Auto) 5.7 L Lea % (Auto) 7.2 Eos % (Auto) 1.7 Baso % (Auto) 1.1 Lymph # 0.8 L Lea # 1.1 H Eos # 0.2 Baso # 0.2 H Seg Neutrophils % 84.3 H Seg Neutrophils # 12.5 H PT 53.8 H INR 5.48 H* Sodium Potassium Chloride Carbon Dioxide Anion Gap BUN Creatinine Estimated GFR BUN/Creatinine Ratio Glucose POC Glucose 96 Calcium Blood Type Antibody Screen Crossmatch 10/16/18 10:18 WBC RBC Hgb Hct MCV MCH MCHC RDW Plt Count Lymph % (Auto) Lea % (Auto) Eos % (Auto) Baso % (Auto) Lymph # Lea # Eos # Baso # Seg Neutrophils % Seg Neutrophils # PT INR Sodium 143 Potassium 4.3 Chloride 101.5 Carbon Dioxide 20 L Anion Gap 26 BUN 21 H Creatinine 1.5 H Estimated GFR 45 BUN/Creatinine Ratio 14 Glucose 326 H POC Glucose Calcium 7.8 L Blood Type Antibody Screen Crossmatch
[2018-10-16 13:54] LABS: INR 5.68 (0.87-1.13)
--- NOTE | 2018-10-16 16:10 | XRay Report ---
PROCEDURE: XR CHEST 1V AP TECHNIQUE: Single frontal view of the chest HISTORY: sob COMPARISONS: Chest radiograph performed on 10/13/2018 FINDINGS: Right upper extremity PICC line with tip of the catheter at the superior cavoatrial junction. Unchang ed position of median sternotomy wires, atrial appendage clip, and mitral valve prosthesis Unchanged cardiomegaly. Increased patchy bilateral airspace opacities, left greater than right. Unchanged right pleural effus ion. No acute bony or soft tissue abnormality. IMPRESSION: Increased patchy bilateral airspace opacities, left greater than right. Differential diagnosis includ es worsening pulmonary edema versus multifocal infiltrate. Unchanged right pleural effusion. This document is electronically signed by Jessika Zapien MD., Oct 16 2018 04:08:31 PM ET
--- NOTE | 2018-10-16 16:14 | Progress Note ---
Assessment and Plan Acute hypoxemic respiratory failure, on mechanical ventilatory support. Symptomatic hypoglycemia. Seizures, possibly related to the hypoglycemia. Acute encephalopathy, toxic metabolic. Mild Hyponatremia Mechanical heart valve (mitral) History of cardiomyopathy. (EF 40%) Right pleural effusion. Pulmonary edema bilateral. History of diabetes. Hypertension. Coagulopathy that is probably related to her Coumadin use at home. - follow H&H post transfusion - continue holding anticoagulation for now - continue BIPAP qhs - continue metoprolol for tachycardia - discontinued Reglan re: loose stools - cardiology evaluation ongoing (input appreciated) - G.I. cleared her for anticoagulation - optimize cardiac function per cardiology team - s/p AB's course - continue bronchodilators with pulmonary hygiene per RT - continue GI prophylaxis - continue to wean supplemental oxygen to keep O2 sats > 90% - Continue cardioprotective measures - Replete electrolytes as indicated - Monitor renal indices closely - Avoid nephrotoxic agents, adjust all medications for CrCL - contiinue strict intake and output monitoring - advance diet per ST - Accuchecks with glycemic control. Target glucose of 140-180 mg/dL - Maintenance of sleep -wake cycle - Mobility as tolerated by hemodynamics - Influenza and pneumonia vaccination per protocol CODE STATUS: FULL CODE Subjective Date of service: 10/16/18 Principal diagnosis: Ac hypoxemic resp failure; Seizures (?hypoglycemic); Ac encephalopathy(T/M) Interval history: Patient is seen today for: Acute hypoxemic respiratory failure, on mechanical ventilatory support; Symptomatic hypoglycemia; Seizures, possibly related to the hypoglycemia; Acute encephalopathy, toxic metabolic; Mild Hyponatremi; History of cardiomyopathy. (EF 40%) Seen and examined at bedside; 24hour events reviewed; nursing and respiratory care staff consulted; no adverse overnight events reported to me; resting peacefully in bed; requiring blood transfusion again; remains on supplemental oxygen; clinically more alert; No N/V/F/C Objective Vital Signs - 12hr 10/16/18 10/16/18 10/16/18 04:31 05:00 05:31 Pulse Rate 102 H 105 H 106 H Respiratory 22 28 H 17 Rate Blood Pressure 145/74 150/84 150/84 O2 Sat by Pulse 97 87 91 Oximetry 10/16/18 10/16/18 10/16/18 06:00 06:31 07:00 Pulse Rate 106 H 104 H 108 H Respiratory 19 26 H 23 Rate Blood Pressure 153/88 153/88 159/94 O2 Sat by Pulse 96 98 96 Oximetry 10/16/18 10/16/18 10/16/18 07:31 08:00 08:20 Pulse Rate 107 H 105 H 114 H Respiratory 25 H 25 H Rate Blood Pressure 159/94 153/87 150/96 O2 Sat by Pulse 97 95 Oximetry 10/16/18 10/16/18 10/16/18 08:31 09:00 10:00 Pulse Rate 110 H 105 H Respiratory 28 H 26 H Rate Blood Pressure 153/87 150/96 O2 Sat by Pulse 87 98 96 Oximetry Constitutional: no acute distress, other (middle aged AAF, normocephalic and with mildly increased resp effort at rest) Eyes: non-icteric ENT: oropharynx moist, other (extubated) Neck: supple, no lymphadenopathy, no JVD Effort: mildly labored Ascultation: Bilateral: diminished breath sounds (bases), rales Percussion: Right: dull (base), Bilateral: not dull Cardiovascular: regular rate and rhythm, other (+ metalic valve click) Gastrointestinal: normoactive bowel sounds, soft, non-tender, non-distended, other (No HSM) Integumentary: normal Extremities: no cyanosis, no edema, pulses normal, no ischemia or petechiae Neurologic: non-focal exam (grossly), pupils equal and round, CN II-XII normal, motor strength normal and, other (somnolent) Psychiatric: other (flat affect) CBC and BMP: 10/20/18 03:00 10/20/18 03:00 ABG, PT/INR, D-dimer: ABG POC ABG pH 7.426 (7.35-7.45) 10/13/18 09:41 POC ABG pCO2 37.2 (35-45) 10/13/18 09:41 POC ABG HCO3 24.4 (22-26 mml/L) 10/13/18 09:41 POC ABG Total CO2 26 (23-27mmol/L) 10/13/18 09:41 POC ABG O2 Sat 70 10/13/18 09:41 PT/INR, D-dimer PT 55.4 Sec. (12.2-14.9) H 10/16/18 13:27 INR 5.68 (0.87-1.13) H* 10/16/18 13:27 Abnormal lab findings: Abnormal Labs 10/07/18 10/07/18 10/07/18 02:20 02:43 02:43 WBC RBC Hgb Hct MCH 25 L RDW 21.5 H Lymph % (Auto) [place] % (Auto) Lymph # 0.9 L [place] # Baso # Seg Neutrophils % 78.4 H Seg Neutrophils # PT INR APTT Heparin Anti-Xa Level POC ABG pH POC ABG pCO2 POC ABG pO2 Sodium Potassium Chloride 108.0 H Carbon Dioxide 21 L BUN Creatinine 1.5 H Glucose 115 H POC Glucose 136 H Hemoglobin A1c Lactic Acid Calcium Phosphorus AST 51 H Alkaline Phosphatase 257 H NT-Pro-B Natriuret Pep Total Protein Albumin Crossmatch 10/07/18 10/07/18 10/07/18 02:43 04:32 05:12 WBC RBC Hgb Hct MCH RDW Lymph % (Auto) [place] % (Auto) Lymph # [place] # Baso # Seg Neutrophils % Seg Neutrophils # PT 25.4 H INR 2.14 H APTT Heparin Anti-Xa Level POC ABG pH POC ABG pCO2 33.6 L POC ABG pO2 69 L Sodium Potassium Chloride Carbon Dioxide BUN Creatinine Glucose POC Glucose Hemoglobin A1c Lactic Acid 2.40 H* Calcium Phosphorus AST Alkaline Phosphatase NT-Pro-B Natriuret Pep Total Protein Albumin Crossmatch 10/07/18 10/07/18 10/07/18 06:28 18:39 20:26 WBC RBC Hgb Hct MCH RDW Lymph % (Auto) [place] % (Auto) Lymph # [place] # Baso # Seg Neutrophils % Seg Neutrophils # PT INR APTT Heparin Anti-Xa Level POC ABG pH POC ABG pCO2 POC ABG pO2 Sodium Potassium Chloride Carbon Dioxide BUN Creatinine Glucose POC Glucose 164 H 440 H > 500 H Hemoglobin A1c Lactic Acid Calcium Phosphorus AST Alkaline Phosphatase NT-Pro-B Natriuret Pep Total Protein Albumin Crossmatch 10/07/18 10/07/18 10/07/18 20:28 21:53 22:08 WBC RBC Hgb Hct MCH RDW Lymph % (Auto) [place] % (Auto) Lymph # [place] # Baso # Seg Neutrophils % Seg Neutrophils # PT INR APTT Heparin Anti-Xa Level POC ABG pH POC ABG pCO2 POC ABG pO2 Sodium 136 L D Potassium 6.4 H* D Chloride Carbon Dioxide 10 L D BUN 30 H Creatinine 2.0 H Glucose 544 H* POC Glucose 483 H > 500 H Hemoglobin A1c Lactic Acid Calcium 7.0 L D Phosphorus AST Alkaline Phosphatase NT-Pro-B Natriuret Pep Total Protein Albumin Crossmatch 10/07/18 10/07/18 10/07/18 22:08 22:08 22:56 WBC RBC Hgb Hct MCH RDW Lymph % (Auto) [place] % (Auto) Lymph # [place] # Baso # Seg Neutrophils % Seg Neutrophils # PT INR APTT Heparin Anti-Xa Level POC ABG pH POC ABG pCO2 POC ABG pO2 Sodium Potassium Chloride Carbon Dioxide BUN Creatinine Glucose POC Glucose 462 H Hemoglobin A1c 10.2 H Lactic Acid Calcium Phosphorus 7.40 H AST Alkaline Phosphatase NT-Pro-B Natriuret Pep Total Protein Albumin Crossmatch 10/07/18 10/08/18 10/08/18 23:39 00:58 02:09 WBC RBC Hgb Hct MCH RDW Lymph % (Auto) [place] % (Auto) Lymph # [place] # Baso # Seg Neutrophils % Seg Neutrophils # PT INR APTT Heparin Anti-Xa Level POC ABG pH POC ABG pCO2 POC ABG pO2 Sodium Potassium Chloride Carbon Dioxide BUN Creatinine Glucose POC Glucose 396 H 375 H 285 H Hemoglobin A1c Lactic Acid Calcium Phosphorus AST Alkaline Phosphatase NT-Pro-B Natriuret Pep Total Protein Albumin Crossmatch 10/08/18 10/08/18 10/08/18 03:10 03:33 04:05 WBC RBC Hgb Hct MCH RDW Lymph % (Auto) [place] % (Auto) Lymph # [place] # Baso # Seg Neutrophils % Seg Neutrophils # PT INR APTT Heparin Anti-Xa Level POC ABG pH 7.243 L POC ABG pCO2 33.8 L POC ABG pO2 126 H Sodium Potassium 5.3 H Chloride 110.7 H Carbon Dioxide 14 L BUN 33 H Creatinine 2.2 H Glucose 193 H POC Glucose 251 H Hemoglobin A1c Lactic Acid Calcium 7.0 L Phosphorus AST Alkaline Phosphatase 155 H NT-Pro-B Natriuret Pep Total Protein 5.2 L D Albumin 2.6 L Crossmatch 10/08/18 10/08/18 10/08/18 04:05 04:05 04:09 WBC 11.8 H RBC 3.32 L Hgb 8.3 L Hct 27.5 L D MCH 25 L RDW 22.0 H Lymph % (Auto) 6.8 L [place] % (Auto) 12.0 H Lymph # 0.8 L [place] # 1.4 H Baso # Seg Neutrophils % 80.6 H Seg Neutrophils # 9.5 H PT INR APTT Heparin Anti-Xa Level POC ABG pH POC ABG pCO2 POC ABG pO2 Sodium Potassium Chloride Carbon Dioxide BUN Creatinine Glucose POC Glucose 175 H Hemoglobin A1c Lactic Acid 3.70 H* Calcium Phosphorus AST Alkaline Phosphatase NT-Pro-B Natriuret Pep Total Protein Albumin Crossmatch 10/08/18 10/08/18 10/08/18 05:07 06:05 07:14 WBC RBC Hgb Hct MCH RDW Lymph % (Auto) [place] % (Auto) Lymph # [place] # Baso # Seg Neutrophils % Seg Neutrophils # PT INR APTT Heparin Anti-Xa Level POC ABG pH POC ABG pCO2 POC ABG pO2 Sodium Potassium Chloride Carbon Dioxide BUN Creatinine Glucose POC Glucose 125 H 122 H 147 H Hemoglobin A1c Lactic Acid Calcium Phosphorus AST Alkaline Phosphatase NT-Pro-B Natriuret Pep Total Protein Albumin Crossmatch 10/08/18 10/08/18 10/08/18 07:22 08:09 08:47 WBC RBC Hgb Hct MCH RDW Lymph % (Auto) [place] % (Auto) Lymph # [place] # Baso # Seg Neutrophils % Seg Neutrophils # PT INR APTT Heparin Anti-Xa Level POC ABG pH POC ABG pCO2 POC ABG pO2 Sodium Potassium 5.2 H Chloride 112.4 H Carbon Dioxide 17 L BUN 32 H Creatinine 2.1 H Glucose 148 H POC Glucose 134 H 148 H Hemoglobin A1c Lactic Acid Calcium 6.6 L Phosphorus AST Alkaline Phosphatase NT-Pro-B Natriuret Pep Total Protein Albumin Crossmatch 10/08/18 10/08/18 10/08/18 10:21 13:29 14:21 WBC RBC Hgb Hct MCH RDW Lymph % (Auto) [place] % (Auto) Lymph # [place] # Baso # Seg Neutrophils % Seg Neutrophils # PT INR APTT Heparin Anti-Xa Level POC ABG pH POC ABG pCO2 POC ABG pO2 Sodium Potassium Chloride Carbon Dioxide BUN Creatinine Glucose POC Glucose 115 H 109 H 118 H Hemoglobin A1c Lactic Acid Calcium Phosphorus AST Alkaline Phosphatase NT-Pro-B Natriuret Pep Total Protein Albumin Crossmatch 10/08/18 10/08/18 10/08/18 15:27 17:00 17:00 WBC 11.3 H RBC 3.21 L Hgb 7.9 L Hct 25.7 L MCH 25 L RDW 21.8 H Lymph % (Auto) 8.5 L [place] % (Auto) 7.7 H Lymph # 1.0 L [place] # 0.9 H Baso # Seg Neutrophils % 82.8 H Seg Neutrophils # 9.3 H PT INR APTT Heparin Anti-Xa Level POC ABG pH POC ABG pCO2 POC ABG pO2 Sodium Potassium Chloride Carbon Dioxide BUN Creatinine Glucose POC Glucose 129 H Hemoglobin A1c Lactic Acid Calcium Phosphorus AST Alkaline Phosphatase NT-Pro-B Natriuret Pep 3097 H Total Protein Albumin Crossmatch 10/08/18 10/08/18 10/08/18 17:07 17:12 18:22 WBC RBC Hgb Hct MCH RDW Lymph % (Auto) [place] % (Auto) Lymph # [place] # Baso # Seg Neutrophils % Seg Neutrophils # PT INR APTT Heparin Anti-Xa Level POC ABG pH 7.337 L POC ABG pCO2 32.0 L POC ABG pO2 130 H Sodium Potassium Chloride 115.5 H Carbon Dioxide 17 L BUN 30 H Creatinine 1.9 H Glucose 103 H POC Glucose 119 H Hemoglobin A1c Lactic Acid Calcium 6.9 L Phosphorus AST Alkaline Phosphatase NT-Pro-B Natriuret Pep Total Protein Albumin Crossmatch 10/08/18 10/08/18 10/09/18 20:09 20:57 01:10 WBC RBC Hgb Hct MCH RDW Lymph % (Auto) [place] % (Auto) Lymph # [place] # Baso # Seg Neutrophils % Seg Neutrophils # PT INR APTT Heparin Anti-Xa Level POC ABG pH POC ABG pCO2 POC ABG pO2 Sodium Potassium Chloride 114.3 H 113.7 H Carbon Dioxide 15 L 14 L BUN 29 H 29 H Creatinine 2.1 H 2.0 H Glucose 132 H 39 L* POC Glucose 150 H Hemoglobin A1c Lactic Acid Calcium 6.7 L 6.9 L Phosphorus AST Alkaline Phosphatase NT-Pro-B Natriuret Pep Total Protein Albumin Crossmatch 10/09/18 10/09/18 10/09/18 01:10 01:43 03:20 WBC RBC Hgb Hct MCH RDW Lymph % (Auto) [place] % (Auto) Lymph # [place] # Baso # Seg Neutrophils % Seg Neutrophils # PT INR APTT Heparin Anti-Xa Level POC ABG pH POC ABG pCO2 POC ABG pO2 Sodium Potassium Chloride Carbon Dioxide BUN Creatinine Glucose POC Glucose < 40 L < 40 L Hemoglobin A1c Lactic Acid Calcium Phosphorus AST Alkaline Phosphatase NT-Pro-B Natriuret Pep 2865 H Total Protein Albumin Crossmatch 10/09/18 10/09/18 10/09/18 04:23 05:03 05:25 WBC RBC Hgb Hct MCH RDW Lymph % (Auto) [place] % (Auto) Lymph # [place] # Baso # Seg Neutrophils % Seg Neutrophils # PT INR APTT Heparin Anti-Xa Level POC ABG pH POC ABG pCO2 30.6 L 32.3 L POC ABG pO2 118 H Sodium Potassium Chloride Carbon Dioxide BUN Creatinine Glucose POC Glucose 148 H Hemoglobin A1c Lactic Acid Calcium Phosphorus AST Alkaline Phosphatase NT-Pro-B Natriuret Pep Total Protein Albumin Crossmatch 10/09/18 10/09/18 10/09/18 06:00 08:34 09:58 WBC RBC Hgb Hct MCH RDW Lymph % (Auto) [place] % (Auto) Lymph # [place] # Baso # Seg Neutrophils % Seg Neutrophils # PT INR APTT Heparin Anti-Xa Level POC ABG pH POC ABG pCO2 POC ABG pO2 Sodium Potassium Chloride Carbon Dioxide BUN Creatinine Glucose POC Glucose 173 H 196 H 183 H Hemoglobin A1c Lactic Acid Calcium Phosphorus AST Alkaline Phosphatase NT-Pro-B Natriuret Pep Total Protein Albumin Crossmatch 10/09/18 10/09/18 10/09/18 12:25 12:46 18:16 WBC RBC Hgb Hct MCH RDW Lymph % (Auto) [place] % (Auto) Lymph # [place] # Baso # Seg Neutrophils % Seg Neutrophils # PT INR APTT Heparin Anti-Xa Level POC ABG pH POC ABG pCO2 POC ABG pO2 Sodium Potassium Chloride 110.3 H Carbon Dioxide 16 L BUN 24 H Creatinine 1.8 H Glucose 207 H POC Glucose 208 H 177 H Hemoglobin A1c Lactic Acid Calcium 6.9 L Phosphorus AST Alkaline Phosphatase NT-Pro-B Natriuret Pep Total Protein Albumin Crossmatch 10/09/18 10/10/18 10/10/18 21:11 00:11 05:41 WBC RBC Hgb Hct MCH RDW Lymph % (Auto) [place] % (Auto) Lymph # [place] # Baso # Seg Neutrophils % Seg Neutrophils # PT INR APTT Heparin Anti-Xa Level POC ABG pH POC ABG pCO2 POC ABG pO2 Sodium Potassium Chloride Carbon Dioxide BUN Creatinine Glucose POC Glucose 124 H 156 H 42 L Hemoglobin A1c Lactic Acid Calcium Phosphorus AST Alkaline Phosphatase NT-Pro-B Natriuret Pep Total Protein Albumin Crossmatch 10/10/18 10/10/18 10/10/18 05:45 07:28 12:07 WBC RBC Hgb Hct MCH RDW Lymph % (Auto) [place] % (Auto) Lymph # [place] # Baso # Seg Neutrophils % Seg Neutrophils # PT INR APTT Heparin Anti-Xa Level POC ABG pH POC ABG pCO2 POC ABG pO2 Sodium 146 H D Potassium Chloride 111.2 H Carbon Dioxide BUN 21 H Creatinine 1.8 H Glucose 44 L POC Glucose 114 H 49 L Hemoglobin A1c Lactic Acid Calcium 7.4 L Phosphorus AST Alkaline Phosphatase NT-Pro-B Natriuret Pep Total Protein Albumin Crossmatch 10/10/18 10/10/18 10/10/18 12:37 18:02 20:47 WBC RBC Hgb Hct MCH RDW Lymph % (Auto) [place] % (Auto) Lymph # [place] # Baso # Seg Neutrophils % Seg Neutrophils # PT INR APTT Heparin Anti-Xa Level POC ABG pH POC ABG pCO2 POC ABG pO2 Sodium Potassium Chloride Carbon Dioxide BUN Creatinine Glucose POC Glucose 142 H 49 L 162 H Hemoglobin A1c Lactic Acid Calcium Phosphorus AST Alkaline Phosphatase NT-Pro-B Natriuret Pep Total Protein Albumin Crossmatch 10/10/18 10/10/18 10/10/18 21:45 22:19 23:50 WBC RBC Hgb Hct MCH RDW Lymph % (Auto) [place] % (Auto) Lymph # [place] # Baso # Seg Neutrophils % Seg Neutrophils # PT INR APTT Heparin Anti-Xa Level POC ABG pH 7.334 L POC ABG pCO2 47.0 H POC ABG pO2 53 L 79 L Sodium Potassium Chloride Carbon Dioxide BUN Creatinine Glucose POC Glucose 185 H Hemoglobin A1c Lactic Acid Calcium Phosphorus AST Alkaline Phosphatase NT-Pro-B Natriuret Pep Total Protein Albumin Crossmatch 10/11/18 10/11/18 10/11/18 05:00 06:41 07:17 WBC RBC Hgb Hct MCH RDW Lymph % (Auto) [place] % (Auto) Lymph # [place] # Baso # Seg Neutrophils % Seg Neutrophils # PT INR APTT Heparin Anti-Xa Level POC ABG pH POC ABG pCO2 POC ABG pO2 Sodium Potassium Chloride Carbon Dioxide BUN Creatinine 1.7 H Glucose 43 L POC Glucose 48 L 129 H Hemoglobin A1c Lactic Acid Calcium 7.7 L Phosphorus AST Alkaline Phosphatase NT-Pro-B Natriuret Pep Total Protein Albumin Crossmatch 10/11/18 10/11/18 10/11/18 11:14 13:32 14:25 WBC RBC 3.32 L Hgb 8.2 L Hct 26.4 L MCH 25 L RDW 21.6 H Lymph % (Auto) [place] % (Auto) Lymph # [place] # Baso # Seg Neutrophils % Seg Neutrophils # PT 21.7 H INR 1.76 H APTT 50.5 H Heparin Anti-Xa Level POC ABG pH POC ABG pCO2 POC ABG pO2 Sodium Potassium Chloride Carbon Dioxide BUN Creatinine Glucose POC Glucose 138 H Hemoglobin A1c Lactic Acid Calcium Phosphorus AST Alkaline Phosphatase NT-Pro-B Natriuret Pep Total Protein Albumin Crossmatch 10/11/18 10/11/18 10/11/18 14:25 15:41 17:31 WBC RBC Hgb Hct MCH RDW Lymph % (Auto) [place] % (Auto) Lymph # [place] # Baso # Seg Neutrophils % Seg Neutrophils # PT 20.6 H INR 1.65 H APTT 54.9 H Heparin Anti-Xa Level POC ABG pH POC ABG pCO2 POC ABG pO2 53 L Sodium Potassium Chloride Carbon Dioxide BUN Creatinine Glucose POC Glucose 133 H Hemoglobin A1c Lactic Acid Calcium Phosphorus AST Alkaline Phosphatase NT-Pro-B Natriuret Pep Total Protein Albumin Crossmatch 10/12/18 10/12/18 10/12/18 00:30 03:56 04:25 WBC RBC Hgb Hct MCH RDW Lymph % (Auto) [place] % (Auto) Lymph # [place] # Baso # Seg Neutrophils % Seg Neutrophils # PT INR APTT Heparin Anti-Xa Level POC ABG pH 7.514 H POC ABG pCO2 31.2 L POC ABG pO2 Sodium Potassium Chloride Carbon Dioxide BUN Creatinine 1.6 H Glucose 287 H POC Glucose 353 H Hemoglobin A1c Lactic Acid Calcium 8.0 L Phosphorus AST Alkaline Phosphatase NT-Pro-B Natriuret Pep Total Protein Albumin Crossmatch 10/12/18 10/12/18 10/12/18 04:49 12:13 17:53 WBC RBC Hgb Hct MCH RDW Lymph % (Auto) [place] % (Auto) Lymph # [place] # Baso # Seg Neutrophils % Seg Neutrophils # PT INR APTT Heparin Anti-Xa Level POC ABG pH POC ABG pCO2 POC ABG pO2 Sodium Potassium Chloride Carbon Dioxide BUN Creatinine Glucose POC Glucose 297 H 290 H 211 H Hemoglobin A1c Lactic Acid Calcium Phosphorus AST Alkaline Phosphatase NT-Pro-B Natriuret Pep Total Protein Albumin Crossmatch 10/12/18 10/12/18 10/13/18 18:57 21:35 04:50 WBC 11.8 H RBC 3.08 L Hgb 7.4 L Hct 24.2 L MCH 24 L RDW 21.5 H Lymph % (Auto) [place] % (Auto) Lymph # [place] # Baso # Seg Neutrophils % Seg Neutrophils # PT INR APTT Heparin Anti-Xa Level 1.74 H POC ABG pH 7.497 H POC ABG pCO2 33.2 L POC ABG pO2 71 L Sodium Potassium Chloride Carbon Dioxide BUN Creatinine Glucose POC Glucose Hemoglobin A1c Lactic Acid Calcium Phosphorus AST Alkaline Phosphatase NT-Pro-B Natriuret Pep Total Protein Albumin Crossmatch 10/13/18 10/13/18 10/13/18 05:25 05:25 05:37 WBC 12.1 H RBC 3.02 L Hgb 7.4 L Hct 23.7 L MCH 25 L RDW 21.0 H Lymph % (Auto) 9.6 L [place] % (Auto) 10.0 H Lymph # [place] # 1.2 H Baso # Seg Neutrophils % 76.2 H Seg Neutrophils # 9.2 H PT INR APTT Heparin Anti-Xa Level POC ABG pH POC ABG pCO2 POC ABG pO2 Sodium Potassium Chloride Carbon Dioxide BUN Creatinine 1.6 H Glucose 175 H POC Glucose 165 H Hemoglobin A1c Lactic Acid Calcium 8.3 L Phosphorus AST Alkaline Phosphatase NT-Pro-B Natriuret Pep Total Protein Albumin Crossmatch 10/13/18 10/13/18 10/13/18 06:45 11:12 17:19 WBC RBC Hgb Hct MCH RDW Lymph % (Auto) [place] % (Auto) Lymph # [place] # Baso # Seg Neutrophils % Seg Neutrophils # PT 17.4 H INR 1.34 H APTT Heparin Anti-Xa Level POC ABG pH POC ABG pCO2 POC ABG pO2 Sodium Potassium Chloride Carbon Dioxide BUN Creatinine Glucose POC Glucose 223 H 129 H Hemoglobin A1c Lactic Acid Calcium Phosphorus AST Alkaline Phosphatase NT-Pro-B Natriuret Pep Total Protein Albumin Crossmatch 10/13/18 10/14/18 10/14/18 23:39 05:01 06:14 WBC RBC Hgb Hct MCH RDW Lymph % (Auto) [place] % (Auto) Lymph # [place] # Baso # Seg Neutrophils % Seg Neutrophils # PT INR APTT Heparin Anti-Xa Level POC ABG pH POC ABG pCO2 POC ABG pO2 Sodium Potassium Chloride Carbon Dioxide BUN Creatinine 1.5 H Glucose 264 H POC Glucose 171 H 226 H Hemoglobin A1c Lactic Acid Calcium 8.0 L Phosphorus AST Alkaline Phosphatase NT-Pro-B Natriuret Pep Total Protein Albumin Crossmatch 10/14/18 10/14/18 10/14/18 06:14 12:24 19:33 WBC RBC Hgb Hct MCH RDW Lymph % (Auto) [place] % (Auto) Lymph # [place] # Baso # Seg Neutrophils % Seg Neutrophils # PT 22.1 H INR 1.80 H APTT Heparin Anti-Xa Level POC ABG pH POC ABG pCO2 POC ABG pO2 Sodium Potassium Chloride Carbon Dioxide BUN Creatinine Glucose POC Glucose 403 H 164 H Hemoglobin A1c Lactic Acid Calcium Phosphorus AST Alkaline Phosphatase NT-Pro-B Natriuret Pep Total Protein Albumin Crossmatch 10/15/18 10/15/18 10/15/18 00:29 06:03 07:00 WBC RBC Hgb Hct MCH RDW Lymph % (Auto) [place] % (Auto) Lymph # [place] # Baso # Seg Neutrophils % Seg Neutrophils # PT INR APTT Heparin Anti-Xa Level POC ABG pH POC ABG pCO2 POC ABG pO2 Sodium Potassium Chloride Carbon Dioxide BUN 20 H Creatinine 1.7 H Glucose 308 H POC Glucose 237 H 282 H Hemoglobin A1c Lactic Acid Calcium 7.6 L Phosphorus AST Alkaline Phosphatase NT-Pro-B Natriuret Pep Total Protein Albumin Crossmatch 10/15/18 10/15/18 10/15/18 07:00 08:03 10:27 WBC RBC Hgb 5.8 L* Hct 18.5 L* MCH RDW Lymph % (Auto) [place] % (Auto) Lymph # [place] # Baso # Seg Neutrophils % Seg Neutrophils # PT 46.1 H INR 4.52 H APTT Heparin Anti-Xa Level 0.25 L POC ABG pH POC ABG pCO2 POC ABG pO2 Sodium Potassium Chloride Carbon Dioxide BUN Creatinine Glucose POC Glucose Hemoglobin A1c Lactic Acid Calcium Phosphorus AST Alkaline Phosphatase NT-Pro-B Natriuret Pep Total Protein Albumin Crossmatch See Detail 10/15/18 10/15/18 10/16/18 14:03 15:30 10:18 WBC RBC Hgb Hct MCH RDW Lymph % (Auto) [place] % (Auto) Lymph # [place] # Baso # Seg Neutrophils % Seg Neutrophils # PT 53.8 H INR 5.48 H* APTT Heparin Anti-Xa Level POC ABG pH POC ABG pCO2 POC ABG pO2 Sodium Potassium Chloride Carbon Dioxide BUN Creatinine Glucose POC Glucose 336 H 259 H Hemoglobin A1c Lactic Acid Calcium Phosphorus AST Alkaline Phosphatase NT-Pro-B Natriuret Pep Total Protein Albumin Crossmatch 10/16/18 10/16/18 10/16/18 10:18 10:18 13:27 WBC 14.8 H RBC 3.03 L Hgb 8.2 L Hct 24.9 L D MCH 27 L RDW 19.2 H Lymph % (Auto) 5.7 L [place] % (Auto) Lymph # 0.8 L [place] # 1.1 H Baso # 0.2 H Seg Neutrophils % 84.3 H Seg Neutrophils # 12.5 H PT 55.4 H INR 5.68 H* APTT Heparin Anti-Xa Level POC ABG pH POC ABG pCO2 POC ABG pO2 Sodium Potassium Chloride Carbon Dioxide 20 L BUN 21 H Creatinine 1.5 H Glucose 326 H POC Glucose Hemoglobin A1c Lactic Acid Calcium 7.8 L Phosphorus AST Alkaline Phosphatase NT-Pro-B Natriuret Pep Total Protein Albumin Crossmatch Allied health notes reviewed: nursing
[2018-10-16] MEDS: LANTUS SUB-Q SCH (17:31)
[2018-10-16] MEDS: LASIX IV SCH (19:16)
[2018-10-17] MEDS: HumaLOG SUB-Q SCH ×4 (00:33→18:21)
[2018-10-17] MEDS: LASIX IV SCH ×2 (05:30→18:22)
[2018-10-17] MEDS: PREVACID SOLUTAB FEEDTUBE SCH ×3 (05:31→22:02)
[2018-10-17 05:45] LABS: Hematocrit 24.2 % (30.3-42.9); Mean Corpuscular HGB Conc 33 % (30-34); Mean Corpuscular Volume 81 fl (79-97); Platelet Count 266 K/mm3 (140-440); Red Blood Count 2.99 M/mm3 (3.65-5.03); Red Cell Distribution Width 19.2 % (13.2-15.2)
[2018-10-17 06:12] LABS: Alanine Aminotransferase 8 units/L (7-56); Albumin 2.2 g/dL (3.9-5); BUN/Creatinine Ratio 12; Blood Urea Nitrogen 17 mg/dL (7-17); Calcium 7.6 mg/dL (8.4-10.2); Hemolysis Index 3
[2018-10-17 06:15] LABS: Bilirubin,Direct < 0.2 mg/dL (0-0.2)
[2018-10-17 06:25] LABS: INR 6.3 (0.87-1.13)
[2018-10-17] MEDS: LOPRESSOR PO SCH ×2 (08:04→18:22)
[2018-10-17 08:36] LABS: Basophils % (Manual) 0 % (0.0-1.8); Total Cells Counted 100
[2018-10-17 08:37] LABS: Anisocytosis 1+; Hypochromasia 1+; Macrocytosis Rare; Platelet Estimate Consistent w Auto; Poikilocytosis Few
--- NOTE | 2018-10-17 09:49 | Progress Note ---
Assessment and Plan Acute hypoxemic respiratory failure, s/p mechanical ventilatory support. Symptomatic hypoglycemia. Seizures, possibly related to the hypoglycemia. Acute encephalopathy, toxic metabolic. Mild Hyponatremia Hyperkalemia s/p CABG with mechanical valve History of cardiomyopathy. (EF 40%) Right pleural effusion with infiltrate- probable aspiration History of diabetes. Hypertension. Coagulopathy, supratherapeutic INR -Wean supplemental oxygen to keep O2 sats 88-90% -PRN ABGs/CXR -If right pleural effusion persists may need thoracentesis -Diuresis as tolerated by renal function and hemodynamics -Heart failure measures -Monitor renal indices closely -Avoid nephrotoxic agents, adjust all medications for CrCL -Strict intake and output monitoring -Stress ulcer prophylaxis -VTE prophylaxis- anticoagulated. Has a mechanical valve Supratherapeutic INR, monitor for bleeding, continue to hold coumadin, daily PT/INR Suspect malnutrition is contributing to the coumadin toxicity Falls precautions Anitbiotics, complete course Supportive transfusions as indicated -Accuchecks with glycemic control. Target glucose of 140-180 mg/dL -Bronchodilators with pulmonary hygiene per RT -Maintenance of sleep -wake cycle -Influenza and pneumonia vaccination per protocol ..care plan discussed at length with RN/RT at the bedside Discussed in ICU-IDT rounds Transfer to telemetry Subjective Date of service: 10/17/18 Principal diagnosis: Ac hypoxemic resp failure; Seizures (?hypoglycemic); Ac enc ephalopathy(T/M) Interval history: Patient is seen today for: Acute hypoxemic respiratory failure, s/p mechanical ventilatory support; Symptomatic hypoglycemia; Seizures, possibly related to the hypoglycemia; Acute encephalopathy, toxic metabolic; Mild Hyponatremia; History of cardiomyopathy. (EF 40%) Seen and examined at bedside; 24hour events reviewed; nursing and respiratory care staff consulted; no adverse overnight events reported to me; no fevers,no further episodes of bleeding today. On supplemental oxyge at 2L via NC . No nausea or vomiting Objective Vital Signs - 12hr 10/16/18 10/16/18 10/16/18 22:00 22:01 22:05 Temperature Pulse Rate 102 H 101 H 99 H Pulse Rate [ Left Radial] Pulse Rate [ Right Radial] Respiratory 21 23 Rate Blood Pressure 139/61 139/61 O2 Sat by Pulse 97 99 Oximetry 10/16/18 10/16/18 10/16/18 22:31 23:00 23:31 Temperature Pulse Rate 105 H 103 H 100 H Pulse Rate [ Left Radial] Pulse Rate [ Right Radial] Respiratory 17 19 20 Rate Blood Pressure 139/61 140/84 139/61 O2 Sat by Pulse 99 94 98 Oximetry 10/17/18 10/17/18 10/17/18 00:00 00:31 01:00 Temperature 97.5 F L Pulse Rate 101 H 99 H 98 H Pulse Rate [ 93 H Left Radial] Pulse Rate [ 93 H Right Radial] Respiratory 18 18 20 Rate Blood Pressure 150/93 140/84 142/71 O2 Sat by Pulse 100 100 100 Oximetry 10/17/18 10/17/18 10/17/18 01:31 02:00 02:31 Temperature Pulse Rate 101 H 107 H 105 H Pulse Rate [ Left Radial] Pulse Rate [ Right Radial] Respiratory 21 23 25 H Rate Blood Pressure 142/71 125/68 O2 Sat by Pulse 100 94 88 Oximetry 10/17/18 10/17/18 10/17/18 03:00 03:31 04:00 Temperature 98.4 F Pulse Rate 107 H 105 H 104 H Pulse Rate [ 93 H Left Radial] Pulse Rate [ 93 H Right Radial] Respiratory 20 24 23 Rate Blood Pressure 135/66 135/66 118/67 O2 Sat by Pulse 94 97 96 Oximetry 10/17/18 10/17/18 10/17/18 04:31 05:00 05:31 Temperature Pulse Rate 106 H 103 H 105 H Pulse Rate [ Left Radial] Pulse Rate [ Right Radial] Respiratory 23 22 23 Rate Blood Pressure 135/66 123/67 123/67 O2 Sat by Pulse 98 96 93 Oximetry 10/17/18 10/17/18 10/17/18 06:00 06:31 07:00 Temperature Pulse Rate 104 H 102 H 101 H Pulse Rate [ Left Radial] Pulse Rate [ Right Radial] Respiratory 23 22 22 Rate Blood Pressure 123/67 123/67 132/70 O2 Sat by Pulse 99 99 97 Oximetry 10/17/18 10/17/18 10/17/18 07:31 08:00 08:17 Temperature 99.5 F Pulse Rate 103 H 101 H Pulse Rate [ Left Radial] Pulse Rate [ Right Radial] Respiratory 25 H 15 Rate Blood Pressure 132/70 122/67 O2 Sat by Pulse 99 99 95 Oximetry 10/17/18 10/17/18 10/17/18 08:31 09:01 09:31 Temperature Pulse Rate 88 87 90 Pulse Rate [ Left Radial] Pulse Rate [ Right Radial] Respiratory 19 18 20 Rate Blood Pressure 122/67 150/85 150/85 O2 Sat by Pulse 94 94 100 Oximetry Constitutional: no acute distress, other (middle aged AAF, normocephalic, atraumatic) Eyes: non-icteric ENT: oropharynx moist, other (extubated) Neck: supple, no lymphadenopathy, no JVD Effort: mildly labored Ascultation: Bilateral: diminished breath sounds (bases), rales Percussion: Right: dull (base), Bilateral: not dull Cardiovascular: regular rate and rhythm, other (+ metallic valve tones) Gastrointestinal: normoactive bowel sounds, soft, non-tender, non-distended, other (No HSM) Integumentary: normal Extremities: no cyanosis, no edema, pulses normal, no ischemia or petechiae Neurologic: non-focal exam (grossly), pupils equal and round, CN II-XII normal, motor strength normal and, other (slow speech) Psychiatric: other (flat affect) CBC and BMP: 10/17/18 05:00 10/17/18 05:00 ABG, PT/INR, D-dimer: ABG POC ABG pH 7.426 (7.35-7.45) 10/13/18 09:41 POC ABG pCO2 37.2 (35-45) 10/13/18 09:41 POC ABG HCO3 24.4 (22-26 mml/L) 10/13/18 09:41 POC ABG Total CO2 26 (23-27mmol/L) 10/13/18 09:41 POC ABG O2 Sat 70 10/13/18 09:41 PT/INR, D-dimer PT 60.2 Sec. (12.2-14.9) H 10/17/18 05:00 INR 6.30 (0.87-1.13) H* 10/17/18 05:00 Abnormal lab findings: Abnormal Labs 10/07/18 10/07/18 10/07/18 02:20 02:43 02:43 WBC RBC Hgb Hct MCH 25 L RDW 21.5 H Lymph % (Auto) [place] % (Auto) Lymph # 0.9 L [place] # Baso # Seg Neutrophils % 78.4 H Seg Neuts % (Manual) Lymphocytes % (Manual) Seg Neutrophils # Seg Neutrophils # Man Lymphocytes # (Manual) PT INR APTT Heparin Anti-Xa Level POC ABG pH POC ABG pCO2 POC ABG pO2 Sodium Potassium Chloride 108.0 H Carbon Dioxide 21 L BUN Creatinine 1.5 H Glucose 115 H POC Glucose 136 H Hemoglobin A1c Lactic Acid Calcium Phosphorus AST 51 H Alkaline Phosphatase 257 H NT-Pro-B Natriuret Pep Total Protein Albumin Crossmatch 10/07/18 10/07/18 10/07/18 02:43 04:32 05:12 WBC RBC Hgb Hct MCH RDW Lymph % (Auto) [place] % (Auto) Lymph # [place] # Baso # Seg Neutrophils % Seg Neuts % (Manual) Lymphocytes % (Manual) Seg Neutrophils # Seg Neutrophils # Man Lymphocytes # (Manual) PT 25.4 H INR 2.14 H APTT Heparin Anti-Xa Level POC ABG pH POC ABG pCO2 33.6 L POC ABG pO2 69 L Sodium Potassium Chloride Carbon Dioxide BUN Creatinine Glucose POC Glucose Hemoglobin A1c Lactic Acid 2.40 H* Calcium Phosphorus AST Alkaline Phosphatase NT-Pro-B Natriuret Pep Total Protein Albumin Crossmatch 10/07/18 10/07/18 10/07/18 06:28 18:39 20:26 WBC RBC Hgb Hct MCH RDW Lymph % (Auto) [place] % (Auto) Lymph # [place] # Baso # Seg Neutrophils % Seg Neuts % (Manual) Lymphocytes % (Manual) Seg Neutrophils # Seg Neutrophils # Man Lymphocytes # (Manual) PT INR APTT Heparin Anti-Xa Level POC ABG pH POC ABG pCO2 POC ABG pO2 Sodium Potassium Chloride Carbon Dioxide BUN Creatinine Glucose POC Glucose 164 H 440 H > 500 H Hemoglobin A1c Lactic Acid Calcium Phosphorus AST Alkaline Phosphatase NT-Pro-B Natriuret Pep Total Protein Albumin Crossmatch 10/07/18 10/07/18 10/07/18 20:28 21:53 22:08 WBC RBC Hgb Hct MCH RDW Lymph % (Auto) [place] % (Auto) Lymph # [place] # Baso # Seg Neutrophils % Seg Neuts % (Manual) Lymphocytes % (Manual) Seg Neutrophils # Seg Neutrophils # Man Lymphocytes # (Manual) PT INR APTT Heparin Anti-Xa Level POC ABG pH POC ABG pCO2 POC ABG pO2 Sodium 136 L D Potassium 6.4 H* D Chloride Carbon Dioxide 10 L D BUN 30 H Creatinine 2.0 H Glucose 544 H* POC Glucose 483 H > 500 H Hemoglobin A1c Lactic Acid Calcium 7.0 L D Phosphorus AST Alkaline Phosphatase NT-Pro-B Natriuret Pep Total Protein Albumin Crossmatch 10/07/18 10/07/18 10/07/18 22:08 22:08 22:56 WBC RBC Hgb Hct MCH RDW Lymph % (Auto) [place] % (Auto) Lymph # [place] # Baso # Seg Neutrophils % Seg Neuts % (Manual) Lymphocytes % (Manual) Seg Neutrophils # Seg Neutrophils # Man Lymphocytes # (Manual) PT INR APTT Heparin Anti-Xa Level POC ABG pH POC ABG pCO2 POC ABG pO2 Sodium Potassium Chloride Carbon Dioxide BUN Creatinine Glucose POC Glucose 462 H Hemoglobin A1c 10.2 H Lactic Acid Calcium Phosphorus 7.40 H AST Alkaline Phosphatase NT-Pro-B Natriuret Pep Total Protein Albumin Crossmatch 10/07/18 10/08/18 10/08/18 23:39 00:58 02:09 WBC RBC Hgb Hct MCH RDW Lymph % (Auto) [place] % (Auto) Lymph # [place] # Baso # Seg Neutrophils % Seg Neuts % (Manual) Lymphocytes % (Manual) Seg Neutrophils # Seg Neutrophils # Man Lymphocytes # (Manual) PT INR APTT Heparin Anti-Xa Level POC ABG pH POC ABG pCO2 POC ABG pO2 Sodium Potassium Chloride Carbon Dioxide BUN Creatinine Glucose POC Glucose 396 H 375 H 285 H Hemoglobin A1c Lactic Acid Calcium Phosphorus AST Alkaline Phosphatase NT-Pro-B Natriuret Pep Total Protein Albumin Crossmatch 10/08/18 10/08/18 10/08/18 03:10 03:33 04:05 WBC RBC Hgb Hct MCH RDW Lymph % (Auto) [place] % (Auto) Lymph # [place] # Baso # Seg Neutrophils % Seg Neuts % (Manual) Lymphocytes % (Manual) Seg Neutrophils # Seg Neutrophils # Man Lymphocytes # (Manual) PT INR APTT Heparin Anti-Xa Level POC ABG pH 7.243 L POC ABG pCO2 33.8 L POC ABG pO2 126 H Sodium Potassium 5.3 H Chloride 110.7 H Carbon Dioxide 14 L BUN 33 H Creatinine 2.2 H Glucose 193 H POC Glucose 251 H Hemoglobin A1c Lactic Acid Calcium 7.0 L Phosphorus AST Alkaline Phosphatase 155 H NT-Pro-B Natriuret Pep Total Protein 5.2 L D Albumin 2.6 L Crossmatch 10/08/18 10/08/18 10/08/18 04:05 04:05 04:09 WBC 11.8 H RBC 3.32 L Hgb 8.3 L Hct 27.5 L D MCH 25 L RDW 22.0 H Lymph % (Auto) 6.8 L [place] % (Auto) 12.0 H Lymph # 0.8 L [place] # 1.4 H Baso # Seg Neutrophils % 80.6 H Seg Neuts % (Manual) Lymphocytes % (Manual) Seg Neutrophils # 9.5 H Seg Neutrophils # Man Lymphocytes # (Manual) PT INR APTT Heparin Anti-Xa Level POC ABG pH POC ABG pCO2 POC ABG pO2 Sodium Potassium Chloride Carbon Dioxide BUN Creatinine Glucose POC Glucose 175 H Hemoglobin A1c Lactic Acid 3.70 H* Calcium Phosphorus AST Alkaline Phosphatase NT-Pro-B Natriuret Pep Total Protein Albumin Crossmatch 10/08/18 10/08/18 10/08/18 05:07 06:05 07:14 WBC RBC Hgb Hct MCH RDW Lymph % (Auto) [place] % (Auto) Lymph # [place] # Baso # Seg Neutrophils % Seg Neuts % (Manual) Lymphocytes % (Manual) Seg Neutrophils # Seg Neutrophils # Man Lymphocytes # (Manual) PT INR APTT Heparin Anti-Xa Level POC ABG pH POC ABG pCO2 POC ABG pO2 Sodium Potassium Chloride Carbon Dioxide BUN Creatinine Glucose POC Glucose 125 H 122 H 147 H Hemoglobin A1c Lactic Acid Calcium Phosphorus AST Alkaline Phosphatase NT-Pro-B Natriuret Pep Total Protein Albumin Crossmatch 10/08/18 10/08/18 10/08/18 07:22 08:09 08:47 WBC RBC Hgb Hct MCH RDW Lymph % (Auto) [place] % (Auto) Lymph # [place] # Baso # Seg Neutrophils % Seg Neuts % (Manual) Lymphocytes % (Manual) Seg Neutrophils # Seg Neutrophils # Man Lymphocytes # (Manual) PT INR APTT Heparin Anti-Xa Level POC ABG pH POC ABG pCO2 POC ABG pO2 Sodium Potassium 5.2 H Chloride 112.4 H Carbon Dioxide 17 L BUN 32 H Creatinine 2.1 H Glucose 148 H POC Glucose 134 H 148 H Hemoglobin A1c Lactic Acid Calcium 6.6 L Phosphorus AST Alkaline Phosphatase NT-Pro-B Natriuret Pep Total Protein Albumin Crossmatch 10/08/18 10/08/18 10/08/18 10:21 13:29 14:21 WBC RBC Hgb Hct MCH RDW Lymph % (Auto) [place] % (Auto) Lymph # [place] # Baso # Seg Neutrophils % Seg Neuts % (Manual) Lymphocytes % (Manual) Seg Neutrophils # Seg Neutrophils # Man Lymphocytes # (Manual) PT INR APTT Heparin Anti-Xa Level POC ABG pH POC ABG pCO2 POC ABG pO2 Sodium Potassium Chloride Carbon Dioxide BUN Creatinine Glucose POC Glucose 115 H 109 H 118 H Hemoglobin A1c Lactic Acid Calcium Phosphorus AST Alkaline Phosphatase NT-Pro-B Natriuret Pep Total Protein Albumin Crossmatch 10/08/18 10/08/18 10/08/18 15:27 17:00 17:00 WBC 11.3 H RBC 3.21 L Hgb 7.9 L Hct 25.7 L MCH 25 L RDW 21.8 H Lymph % (Auto) 8.5 L [place] % (Auto) 7.7 H Lymph # 1.0 L [place] # 0.9 H Baso # Seg Neutrophils % 82.8 H Seg Neuts % (Manual) Lymphocytes % (Manual) Seg Neutrophils # 9.3 H Seg Neutrophils # Man Lymphocytes # (Manual) PT INR APTT Heparin Anti-Xa Level POC ABG pH POC ABG pCO2 POC ABG pO2 Sodium Potassium Chloride Carbon Dioxide BUN Creatinine Glucose POC Glucose 129 H Hemoglobin A1c Lactic Acid Calcium Phosphorus AST Alkaline Phosphatase NT-Pro-B Natriuret Pep 3097 H Total Protein Albumin Crossmatch 10/08/18 10/08/18 10/08/18 17:07 17:12 18:22 WBC RBC Hgb Hct MCH RDW Lymph % (Auto) [place] % (Auto) Lymph # [place] # Baso # Seg Neutrophils % Seg Neuts % (Manual) Lymphocytes % (Manual) Seg Neutrophils # Seg Neutrophils # Man Lymphocytes # (Manual) PT INR APTT Heparin Anti-Xa Level POC ABG pH 7.337 L POC ABG pCO2 32.0 L POC ABG pO2 130 H Sodium Potassium Chloride 115.5 H Carbon Dioxide 17 L BUN 30 H Creatinine 1.9 H Glucose 103 H POC Glucose 119 H Hemoglobin A1c Lactic Acid Calcium 6.9 L Phosphorus AST Alkaline Phosphatase NT-Pro-B Natriuret Pep Total Protein Albumin Crossmatch 10/08/18 10/08/18 10/09/18 20:09 20:57 01:10 WBC RBC Hgb Hct MCH RDW Lymph % (Auto) [place] % (Auto) Lymph # [place] # Baso # Seg Neutrophils % Seg Neuts % (Manual) Lymphocytes % (Manual) Seg Neutrophils # Seg Neutrophils # Man Lymphocytes # (Manual) PT INR APTT Heparin Anti-Xa Level POC ABG pH POC ABG pCO2 POC ABG pO2 Sodium Potassium Chloride 114.3 H 113.7 H Carbon Dioxide 15 L 14 L BUN 29 H 29 H Creatinine 2.1 H 2.0 H Glucose 132 H 39 L* POC Glucose 150 H Hemoglobin A1c Lactic Acid Calcium 6.7 L 6.9 L Phosphorus AST Alkaline Phosphatase NT-Pro-B Natriuret Pep Total Protein Albumin Crossmatch 10/09/18 10/09/18 10/09/18 01:10 01:43 03:20 WBC RBC Hgb Hct MCH RDW Lymph % (Auto) [place] % (Auto) Lymph # [place] # Baso # Seg Neutrophils % Seg Neuts % (Manual) Lymphocytes % (Manual) Seg Neutrophils # Seg Neutrophils # Man Lymphocytes # (Manual) PT INR APTT Heparin Anti-Xa Level POC ABG pH POC ABG pCO2 POC ABG pO2 Sodium Potassium Chloride Carbon Dioxide BUN Creatinine Glucose POC Glucose < 40 L < 40 L Hemoglobin A1c Lactic Acid Calcium Phosphorus AST Alkaline Phosphatase NT-Pro-B Natriuret Pep 2865 H Total Protein Albumin Crossmatch 10/09/18 10/09/18 10/09/18 04:23 05:03 05:25 WBC RBC Hgb Hct MCH RDW Lymph % (Auto) [place] % (Auto) Lymph # [place] # Baso # Seg Neutrophils % Seg Neuts % (Manual) Lymphocytes % (Manual) Seg Neutrophils # Seg Neutrophils # Man Lymphocytes # (Manual) PT INR APTT Heparin Anti-Xa Level POC ABG pH POC ABG pCO2 30.6 L 32.3 L POC ABG pO2 118 H Sodium Potassium Chloride Carbon Dioxide BUN Creatinine Glucose POC Glucose 148 H Hemoglobin A1c Lactic Acid Calcium Phosphorus AST Alkaline Phosphatase NT-Pro-B Natriuret Pep Total Protein Albumin Crossmatch 10/09/18 10/09/18 10/09/18 06:00 08:34 09:58 WBC RBC Hgb Hct MCH RDW Lymph % (Auto) [place] % (Auto) Lymph # [place] # Baso # Seg Neutrophils % Seg Neuts % (Manual) Lymphocytes % (Manual) Seg Neutrophils # Seg Neutrophils # Man Lymphocytes # (Manual) PT INR APTT Heparin Anti-Xa Level POC ABG pH POC ABG pCO2 POC ABG pO2 Sodium Potassium Chloride Carbon Dioxide BUN Creatinine Glucose POC Glucose 173 H 196 H 183 H Hemoglobin A1c Lactic Acid Calcium Phosphorus AST Alkaline Phosphatase NT-Pro-B Natriuret Pep Total Protein Albumin Crossmatch 10/09/18 10/09/18 10/09/18 12:25 12:46 18:16 WBC RBC Hgb Hct MCH RDW Lymph % (Auto) [place] % (Auto) Lymph # [place] # Baso # Seg Neutrophils % Seg Neuts % (Manual) Lymphocytes % (Manual) Seg Neutrophils # Seg Neutrophils # Man Lymphocytes # (Manual) PT INR APTT Heparin Anti-Xa Level POC ABG pH POC ABG pCO2 POC ABG pO2 Sodium Potassium Chloride 110.3 H Carbon Dioxide 16 L BUN 24 H Creatinine 1.8 H Glucose 207 H POC Glucose 208 H 177 H Hemoglobin A1c Lactic Acid Calcium 6.9 L Phosphorus AST Alkaline Phosphatase NT-Pro-B Natriuret Pep Total Protein Albumin Crossmatch 10/09/18 10/10/18 10/10/18 21:11 00:11 05:41 WBC RBC Hgb Hct MCH RDW Lymph % (Auto) [place] % (Auto) Lymph # [place] # Baso # Seg Neutrophils % Seg Neuts % (Manual) Lymphocytes % (Manual) Seg Neutrophils # Seg Neutrophils # Man Lymphocytes # (Manual) PT INR APTT Heparin Anti-Xa Level POC ABG pH POC ABG pCO2 POC ABG pO2 Sodium Potassium Chloride Carbon Dioxide BUN Creatinine Glucose POC Glucose 124 H 156 H 42 L Hemoglobin A1c Lactic Acid Calcium Phosphorus AST Alkaline Phosphatase NT-Pro-B Natriuret Pep Total Protein Albumin Crossmatch 10/10/18 10/10/18 10/10/18 05:45 07:28 12:07 WBC RBC Hgb Hct MCH RDW Lymph % (Auto) [place] % (Auto) Lymph # [place] # Baso # Seg Neutrophils % Seg Neuts % (Manual) Lymphocytes % (Manual) Seg Neutrophils # Seg Neutrophils # Man Lymphocytes # (Manual) PT INR APTT Heparin Anti-Xa Level POC ABG pH POC ABG pCO2 POC ABG pO2 Sodium 146 H D Potassium Chloride 111.2 H Carbon Dioxide BUN 21 H Creatinine 1.8 H Glucose 44 L POC Glucose 114 H 49 L Hemoglobin A1c Lactic Acid Calcium 7.4 L Phosphorus AST Alkaline Phosphatase NT-Pro-B Natriuret Pep Total Protein Albumin Crossmatch 10/10/18 10/10/18 10/10/18 12:37 18:02 20:47 WBC RBC Hgb Hct MCH RDW Lymph % (Auto) [place] % (Auto) Lymph # [place] # Baso # Seg Neutrophils % Seg Neuts % (Manual) Lymphocytes % (Manual) Seg Neutrophils # Seg Neutrophils # Man Lymphocytes # (Manual) PT INR APTT Heparin Anti-Xa Level POC ABG pH POC ABG pCO2 POC ABG pO2 Sodium Potassium Chloride Carbon Dioxide BUN Creatinine Glucose POC Glucose 142 H 49 L 162 H Hemoglobin A1c Lactic Acid Calcium Phosphorus AST Alkaline Phosphatase NT-Pro-B Natriuret Pep Total Protein Albumin Crossmatch 10/10/18 10/10/18 10/10/18 21:45 22:19 23:50 WBC RBC Hgb Hct MCH RDW Lymph % (Auto) [place] % (Auto) Lymph # [place] # Baso # Seg Neutrophils % Seg Neuts % (Manual) Lymphocytes % (Manual) Seg Neutrophils # Seg Neutrophils # Man Lymphocytes # (Manual) PT INR APTT Heparin Anti-Xa Level POC ABG pH 7.334 L POC ABG pCO2 47.0 H POC ABG pO2 53 L 79 L Sodium Potassium Chloride Carbon Dioxide BUN Creatinine Glucose POC Glucose 185 H Hemoglobin A1c Lactic Acid Calcium Phosphorus AST Alkaline Phosphatase NT-Pro-B Natriuret Pep Total Protein Albumin Crossmatch 10/11/18 10/11/18 10/11/18 05:00 06:41 07:17 WBC RBC Hgb Hct MCH RDW Lymph % (Auto) [place] % (Auto) Lymph # [place] # Baso # Seg Neutrophils % Seg Neuts % (Manual) Lymphocytes % (Manual) Seg Neutrophils # Seg Neutrophils # Man Lymphocytes # (Manual) PT INR APTT Heparin Anti-Xa Level POC ABG pH POC ABG pCO2 POC ABG pO2 Sodium Potassium Chloride Carbon Dioxide BUN Creatinine 1.7 H Glucose 43 L POC Glucose 48 L 129 H Hemoglobin A1c Lactic Acid Calcium 7.7 L Phosphorus AST Alkaline Phosphatase NT-Pro-B Natriuret Pep Total Protein Albumin Crossmatch 10/11/18 10/11/18 10/11/18 11:14 13:32 14:25 WBC RBC 3.32 L Hgb 8.2 L Hct 26.4 L MCH 25 L RDW 21.6 H Lymph % (Auto) [place] % (Auto) Lymph # [place] # Baso # Seg Neutrophils % Seg Neuts % (Manual) Lymphocytes % (Manual) Seg Neutrophils # Seg Neutrophils # Man Lymphocytes # (Manual) PT 21.7 H INR 1.76 H APTT 50.5 H Heparin Anti-Xa Level POC ABG pH POC ABG pCO2 POC ABG pO2 Sodium Potassium Chloride Carbon Dioxide BUN Creatinine Glucose POC Glucose 138 H Hemoglobin A1c Lactic Acid Calcium Phosphorus AST Alkaline Phosphatase NT-Pro-B Natriuret Pep Total Protein Albumin Crossmatch 10/11/18 10/11/18 10/11/18 14:25 15:41 17:31 WBC RBC Hgb Hct MCH RDW Lymph % (Auto) [place] % (Auto) Lymph # [place] # Baso # Seg Neutrophils % Seg Neuts % (Manual) Lymphocytes % (Manual) Seg Neutrophils # Seg Neutrophils # Man Lymphocytes # (Manual) PT 20.6 H INR 1.65 H APTT 54.9 H Heparin Anti-Xa Level POC ABG pH POC ABG pCO2 POC ABG pO2 53 L Sodium Potassium Chloride Carbon Dioxide BUN Creatinine Glucose POC Glucose 133 H Hemoglobin A1c Lactic Acid Calcium Phosphorus AST Alkaline Phosphatase NT-Pro-B Natriuret Pep Total Protein Albumin Crossmatch 10/12/18 10/12/18 10/12/18 00:30 03:56 04:25 WBC RBC Hgb Hct MCH RDW Lymph % (Auto) [place] % (Auto) Lymph # [place] # Baso # Seg Neutrophils % Seg Neuts % (Manual) Lymphocytes % (Manual) Seg Neutrophils # Seg Neutrophils # Man Lymphocytes # (Manual) PT INR APTT Heparin Anti-Xa Level POC ABG pH 7.514 H POC ABG pCO2 31.2 L POC ABG pO2 Sodium Potassium Chloride Carbon Dioxide BUN Creatinine 1.6 H Glucose 287 H POC Glucose 353 H Hemoglobin A1c Lactic Acid Calcium 8.0 L Phosphorus AST Alkaline Phosphatase NT-Pro-B Natriuret Pep Total Protein Albumin Crossmatch 10/12/18 10/12/18 10/12/18 04:49 12:13 17:53 WBC RBC Hgb Hct MCH RDW Lymph % (Auto) [place] % (Auto) Lymph # [place] # Baso # Seg Neutrophils % Seg Neuts % (Manual) Lymphocytes % (Manual) Seg Neutrophils # Seg Neutrophils # Man Lymphocytes # (Manual) PT INR APTT Heparin Anti-Xa Level POC ABG pH POC ABG pCO2 POC ABG pO2 Sodium Potassium Chloride Carbon Dioxide BUN Creatinine Glucose POC Glucose 297 H 290 H 211 H Hemoglobin A1c Lactic Acid Calcium Phosphorus AST Alkaline Phosphatase NT-Pro-B Natriuret Pep Total Protein Albumin Crossmatch 10/12/18 10/12/18 10/13/18 18:57 21:35 04:50 WBC 11.8 H RBC 3.08 L Hgb 7.4 L Hct 24.2 L MCH 24 L RDW 21.5 H Lymph % (Auto) [place] % (Auto) Lymph # [place] # Baso # Seg Neutrophils % Seg Neuts % (Manual) Lymphocytes % (Manual) Seg Neutrophils # Seg Neutrophils # Man Lymphocytes # (Manual) PT INR APTT Heparin Anti-Xa Level 1.74 H POC ABG pH 7.497 H POC ABG pCO2 33.2 L POC ABG pO2 71 L Sodium Potassium Chloride Carbon Dioxide BUN Creatinine Glucose POC Glucose Hemoglobin A1c Lactic Acid Calcium Phosphorus AST Alkaline Phosphatase NT-Pro-B Natriuret Pep Total Protein Albumin Crossmatch 10/13/18 10/13/18 10/13/18 05:25 05:25 05:37 WBC 12.1 H RBC 3.02 L Hgb 7.4 L Hct 23.7 L MCH 25 L RDW 21.0 H Lymph % (Auto) 9.6 L [place] % (Auto) 10.0 H Lymph # [place] # 1.2 H Baso # Seg Neutrophils % 76.2 H Seg Neuts % (Manual) Lymphocytes % (Manual) Seg Neutrophils # 9.2 H Seg Neutrophils # Man Lymphocytes # (Manual) PT INR APTT Heparin Anti-Xa Level POC ABG pH POC ABG pCO2 POC ABG pO2 Sodium Potassium Chloride Carbon Dioxide BUN Creatinine 1.6 H Glucose 175 H POC Glucose 165 H Hemoglobin A1c Lactic Acid Calcium 8.3 L Phosphorus AST Alkaline Phosphatase NT-Pro-B Natriuret Pep Total Protein Albumin Crossmatch 10/13/18 10/13/18 10/13/18 06:45 11:12 17:19 WBC RBC Hgb Hct MCH RDW Lymph % (Auto) [place] % (Auto) Lymph # [place] # Baso # Seg Neutrophils % Seg Neuts % (Manual) Lymphocytes % (Manual) Seg Neutrophils # Seg Neutrophils # Man Lymphocytes # (Manual) PT 17.4 H INR 1.34 H APTT Heparin Anti-Xa Level POC ABG pH POC ABG pCO2 POC ABG pO2 Sodium Potassium Chloride Carbon Dioxide BUN Creatinine Glucose POC Glucose 223 H 129 H Hemoglobin A1c Lactic Acid Calcium Phosphorus AST Alkaline Phosphatase NT-Pro-B Natriuret Pep Total Protein Albumin Crossmatch 10/13/18 10/14/18 10/14/18 23:39 05:01 06:14 WBC RBC Hgb Hct MCH RDW Lymph % (Auto) [place] % (Auto) Lymph # [place] # Baso # Seg Neutrophils % Seg Neuts % (Manual) Lymphocytes % (Manual) Seg Neutrophils # Seg Neutrophils # Man Lymphocytes # (Manual) PT INR APTT Heparin Anti-Xa Level POC ABG pH POC ABG pCO2 POC ABG pO2 Sodium Potassium Chloride Carbon Dioxide BUN Creatinine 1.5 H Glucose 264 H POC Glucose 171 H 226 H Hemoglobin A1c Lactic Acid Calcium 8.0 L Phosphorus AST Alkaline Phosphatase NT-Pro-B Natriuret Pep Total Protein Albumin Crossmatch 10/14/18 10/14/18 10/14/18 06:14 12:24 19:33 WBC RBC Hgb Hct MCH RDW Lymph % (Auto) [place] % (Auto) Lymph # [place] # Baso # Seg Neutrophils % Seg Neuts % (Manual) Lymphocytes % (Manual) Seg Neutrophils # Seg Neutrophils # Man Lymphocytes # (Manual) PT 22.1 H INR 1.80 H APTT Heparin Anti-Xa Level POC ABG pH POC ABG pCO2 POC ABG pO2 Sodium Potassium Chloride Carbon Dioxide BUN Creatinine Glucose POC Glucose 403 H 164 H Hemoglobin A1c Lactic Acid Calcium Phosphorus AST Alkaline Phosphatase NT-Pro-B Natriuret Pep Total Protein Albumin Crossmatch 10/15/18 10/15/18 10/15/18 00:29 06:03 07:00 WBC RBC Hgb Hct MCH RDW Lymph % (Auto) [place] % (Auto) Lymph # [place] # Baso # Seg Neutrophils % Seg Neuts % (Manual) Lymphocytes % (Manual) Seg Neutrophils # Seg Neutrophils # Man Lymphocytes # (Manual) PT INR APTT Heparin Anti-Xa Level POC ABG pH POC ABG pCO2 POC ABG pO2 Sodium Potassium Chloride Carbon Dioxide BUN 20 H Creatinine 1.7 H Glucose 308 H POC Glucose 237 H 282 H Hemoglobin A1c Lactic Acid Calcium 7.6 L Phosphorus AST Alkaline Phosphatase NT-Pro-B Natriuret Pep Total Protein Albumin Crossmatch 10/15/18 10/15/18 10/15/18 07:00 08:03 10:27 WBC RBC Hgb 5.8 L* Hct 18.5 L* MCH RDW Lymph % (Auto) [place] % (Auto) Lymph # [place] # Baso # Seg Neutrophils % Seg Neuts % (Manual) Lymphocytes % (Manual) Seg Neutrophils # Seg Neutrophils # Man Lymphocytes # (Manual) PT 46.1 H INR 4.52 H APTT Heparin Anti-Xa Level 0.25 L POC ABG pH POC ABG pCO2 POC ABG pO2 Sodium Potassium Chloride Carbon Dioxide BUN Creatinine Glucose POC Glucose Hemoglobin A1c Lactic Acid Calcium Phosphorus AST Alkaline Phosphatase NT-Pro-B Natriuret Pep Total Protein Albumin Crossmatch See Detail 10/15/18 10/15/18 10/16/18 14:03 15:30 10:18 WBC RBC Hgb Hct MCH RDW Lymph % (Auto) [place] % (Auto) Lymph # [place] # Baso # Seg Neutrophils % Seg Neuts % (Manual) Lymphocytes % (Manual) Seg Neutrophils # Seg Neutrophils # Man Lymphocytes # (Manual) PT 53.8 H INR 5.48 H* APTT Heparin Anti-Xa Level POC ABG pH POC ABG pCO2 POC ABG pO2 Sodium Potassium Chloride Carbon Dioxide BUN Creatinine Glucose POC Glucose 336 H 259 H Hemoglobin A1c Lactic Acid Calcium Phosphorus AST Alkaline Phosphatase NT-Pro-B Natriuret Pep Total Protein Albumin Crossmatch 10/16/18 10/16/18 10/16/18 10:18 10:18 13:03 WBC 14.8 H RBC 3.03 L Hgb 8.2 L Hct 24.9 L D MCH 27 L RDW 19.2 H Lymph % (Auto) 5.7 L [place] % (Auto) Lymph # 0.8 L [place] # 1.1 H Baso # 0.2 H Seg Neutrophils % 84.3 H Seg Neuts % (Manual) Lymphocytes % (Manual) Seg Neutrophils # 12.5 H Seg Neutrophils # Man Lymphocytes # (Manual) PT INR APTT Heparin Anti-Xa Level POC ABG pH POC ABG pCO2 POC ABG pO2 Sodium Potassium Chloride Carbon Dioxide 20 L BUN 21 H Creatinine 1.5 H Glucose 326 H POC Glucose 329 H Hemoglobin A1c Lactic Acid Calcium 7.8 L Phosphorus AST Alkaline Phosphatase NT-Pro-B Natriuret Pep Total Protein Albumin Crossmatch 10/16/18 10/17/18 10/17/18 13:27 00:35 05:00 WBC RBC Hgb Hct MCH RDW Lymph % (Auto) [place] % (Auto) Lymph # [place] # Baso # Seg Neutrophils % Seg Neuts % (Manual) Lymphocytes % (Manual) Seg Neutrophils # Seg Neutrophils # Man Lymphocytes # (Manual) PT 55.4 H 60.2 H INR 5.68 H* 6.30 H* APTT Heparin Anti-Xa Level POC ABG pH POC ABG pCO2 POC ABG pO2 Sodium Potassium Chloride Carbon Dioxide BUN Creatinine Glucose POC Glucose 407 H Hemoglobin A1c Lactic Acid Calcium Phosphorus AST Alkaline Phosphatase NT-Pro-B Natriuret Pep Total Protein Albumin Crossmatch 10/17/18 10/17/18 10/17/18 05:00 05:00 05:29 WBC 11.6 H RBC 2.99 L Hgb 8.0 L Hct 24.2 L MCH 27 L RDW 19.2 H Lymph % (Auto) [place] % (Auto) Lymph # [place] # Baso # Seg Neutrophils % Seg Neuts % (Manual) 87.0 H Lymphocytes % (Manual) 9.0 L Seg Neutrophils # Seg Neutrophils # Man 10.1 H Lymphocytes # (Manual) 1.0 L PT INR APTT Heparin Anti-Xa Level POC ABG pH POC ABG pCO2 POC ABG pO2 Sodium Potassium 3.4 L D Chloride Carbon Dioxide BUN Creatinine 1.4 H Glucose 170 H POC Glucose 156 H Hemoglobin A1c Lactic Acid Calcium 7.6 L Phosphorus AST Alkaline Phosphatase NT-Pro-B Natriuret Pep Total Protein 5.4 L Albumin 2.2 L Crossmatch Chest x-ray: image reviewed (Bilateral alveolar infiltrates, sternotomy wires, mechanical valve, right pleural effusion) Allied health notes reviewed: nursing
[2018-10-17] MEDS: LANTUS SUB-Q SCH (10:07)
[2018-10-17] MEDS: SODIUM CHLORIDE FLUSH SYRINGE 10 ML IV SCH ×2 (12:34→22:02)
--- NOTE | 2018-10-17 14:00 | Progress Note ---
Assessment and Plan Pt appears to be clinically improving. INR 6.3 this AM. likely autoanticaog due to critically ill state. cont IV diuresis and PO lopressor. Consider ACEI/ARB if okay per nephrology. Ultimately, coumadin should be resumed with tx INR 2.5 - 3.5. The patient has been seen in conjunction with Dr. Colmenares who agrees with the assessment and plan of care. - Patient Problems (1) Altered mental status Current Visit: Yes Status: Acute (2) Seizures Current Visit: Yes Status: Suspected (3) Hypoglycemia Current Visit: Yes Status: Acute (4) Acute respiratory failure Current Visit: Yes Status: Acute (5) Pneumonia Current Visit: Yes Status: Acute Qualifiers: Pneumonia type: due to unspecified organism Laterality: right Lung location: middle lobe of lung Qualified Code(s): J18.1 - Lobar pneumonia, unspecified organism (6) Sepsis Current Visit: Yes Status: Suspected Qualifiers: Sepsis type: sepsis due to unspecified organism Qualified Code(s): A41.9 - Sepsis, unspecified organism (7) CAD (coronary artery disease) Current Visit: Yes Status: Chronic (8) History of coronary artery bypass graft Current Visit: Yes Status: Chronic (9) H/O mitral valve replacement with mechanical valve Current Visit: Yes Status: Chronic (10) Heart failure with reduced ejection fraction Current Visit: Yes Status: Acute (11) Acute on chronic renal failure Current Visit: Yes Status: Acute (12) Anemia Current Visit: Yes Status: Chronic (13) History of GI bleed Current Visit: Yes Status: Chronic (14) Diabetes Current Visit: Yes Status: Chronic Subjective Date of service: 10/17/18 Principal diagnosis: Ac hypoxemic resp failure; Seizures (?hypoglycemic); Ac encephalopathy(T/M) Interval history: pt alert and oriented, no current cardiac complaints. Objective Last Vital Signs Temp 99.5 F 10/17/18 08:00 Pulse 90 10/17/18 09:31 Resp 20 10/17/18 09:31 BP 150/85 10/17/18 09:31 Pulse Ox 100 10/17/18 09:31 - Physical Examination General: No Apparent Distress HEENT: Positive: PERRL Neck: Positive: neck supple Cardiac: Positive: Reg Rate and Rhythm, S1/S2 Lungs: Positive: Decreased Breath Sounds Neuro: Positive: Grossly Intact Abdomen: Negative: Tender Skin: Negative: Rash Extremities: Absent: edema - Labs and Meds Cardiac Enzymes 10/17/18 Range/Units 05:00 AST 14 (5-40) units/L Coagulation 10/17/18 Range/Units 05:00 PT 60.2 H (12.2-14.9) Sec. INR 6.30 H* (0.87-1.13) CBC 10/17/18 Range/Units 05:00 WBC 11.6 H (4.5-11.0) K/mm3 RBC 2.99 L (3.65-5.03) M/mm3 Hgb 8.0 L (10.1-14.3) gm/dl Hct 24.2 L (30.3-42.9) % Plt Count 266 (140-440) K/mm3 Comprehensive Metabolic Panel 10/17/18 Range/Units 05:00 Sodium 144 (137-145) mmol/L Potassium 3.4 L D (3.6-5.0) mmol/L Chloride 103.9 (98-107) mmol/L Carbon Dioxide 27 D (22-30) mmol/L BUN 17 (7-17) mg/dL Creatinine 1.4 H (0.7-1.2) mg/dL Glucose 170 H (65-100) mg/dL Calcium 7.6 L (8.4-10.2) mg/dL Direct Bilirubin < 0.2 (0-0.2) mg/dL Indirect Bilirubin 0.4 mg/dL AST 14 (5-40) units/L ALT 8 (7-56) units/L Alkaline Phosphatase 104 (35-129) units/L Total Protein 5.4 L (6.3-8.2) g/dL Albumin 2.2 L (3.9-5) g/dL - Imaging and Cardiology EKG: report reviewed, image reviewed Echo: report reviewed (07/2018: EF 40%, mild to mod LVH, LA and RA dilated, mod TR and MA, mechanical valve in mitral position that appears to be functioning properly. 10/2018: EF 35-40%, mod LVH, abnormal diastolic function, LA severely dilated, mechanical MV appears well seated with normal function, mod pulm HTN. 11/2016 showed EF 40-45%, abnormal diastolic function, trace MR, mild TR, RVSP 36mmHg. ) - Telemetry EKG Rhythm: Sinus Rhythm - EKG Sinus rhythms and dysrhythmias: sinus rhythm Chamber hypertrophy or enlargement: left ventricular hypertro - Allied health notes Allied health notes reviewed: nursing
--- NOTE | 2018-10-17 15:50 | Gastroenterology Progress Note ---
<BRIGIDA JUAREZ - Last Filed: 10/17/18 16:05> Assessment and Plan 1.acute on chronic anemia -H/H 8.0/24.4-stable -continue to monitor H/H and transfuse as needed -no active sign of bleeding overnight or this am- no hemorrhage on CT -last EGD 08/05/2018 showed gastritis with mild self-limited oozing of blood but no high risk bleeding lesions -etiology unclear-likely multifactorial -will consider repeat EGD/colonoscopy based on progress once INR (6.30 today) trended down and cleared by pulmonary and cardiology -anticoagulation currently on hold -continue PPI and supportive care -electrolyte management per primary team -will follow 2.sepsis/PNA 3.acute respiratory failure 5.acute on chronic systolic CHF 6.DM 7.ASHELY upon CKD 8.AMS 9.CAD (s/p CABG) 10.H/O mitral valve replacement with mechanical valve Subjective Date of service: 10/17/18 Principal diagnosis: anemia/GI bleed? Interval history: Patient transferred from ICU to floor. Resting in bed this afternoon w/o acute distress. Denies abd pain, N/V, or active signs of bleeding. Tolerating diet. Objective - Constitutional Vitals: Temp Pulse Resp BP Pulse Ox 99.5 F 90 20 150/85 100 10/17/18 08:00 10/17/18 09:31 10/17/18 09:31 10/17/18 09:31 10/17/18 09:31 General appearance: no acute distress - Respiratory Respiratory: bilateral: diminished - Cardiovascular Rhythm: regular - Gastrointestinal General gastrointestinal: Present: soft, non-tender, non-distended, normal bowel sounds - Neurologic Neurological: alert and oriented x3 - Labs CBC & Chem 7: 10/17/18 05:00 10/17/18 05:00 Labs: Laboratory Results - last 24 hr 10/16/18 10/16/18 10/17/18 13:03 17:15 00:35 WBC RBC Hgb Hct MCV MCH MCHC RDW Plt Count Add Manual Diff Total Counted Seg Neuts % (Manual) Band Neutrophils % Lymphocytes % (Manual) Reactive Lymphs % (Man) Monocytes % (Manual) Eosinophils % (Manual) Basophils % (Manual) Metamyelocytes % Myelocytes % Promyelocytes % Blast Cells % Nucleated RBC % Seg Neutrophils # Man Band Neutrophils # Lymphocytes # (Manual) Abs React Lymphs (Man) Monocytes # (Manual) Eosinophils # (Manual) Basophils # (Manual) Metamyelocytes # Myelocytes # Promyelocytes # Blast Cells # WBC Morphology Hypersegmented Neuts Hyposegmented Neuts Hypogranular Neuts Smudge Cells Toxic Granulation Toxic Vacuolation Dohle Bodies Pelger-Huet Anomaly Mary Rods Platelet Estimate Clumped Platelets Plt Clumps, EDTA Large Platelets Giant Platelets Platelet Satelliting Plt Morphology Comment RBC Morphology Dimorphic RBCs Polychromasia Hypochromasia Poikilocytosis Anisocytosis Microcytosis Macrocytosis Spherocytes Pappenheimer Bodies Sickle Cells Target Cells Tear Drop Cells Ovalocytes Helmet Cells [place] Bodies [place] Rings [place] Cells Bite Cells Crenated Cell Elliptocytes Acanthocytes (Spur) Rouleaux Hemoglobin C Crystals Schistocytes Malaria parasites Michael Bodies Hem Pathologist Commnt PT INR Sodium Potassium Chloride Carbon Dioxide Anion Gap BUN Creatinine Estimated GFR BUN/Creatinine Ratio Glucose POC Glucose 329 H 85 407 H Calcium Total Bilirubin Direct Bilirubin Indirect Bilirubin AST ALT Alkaline Phosphatase Total Protein Albumin Albumin/Globulin Ratio 10/17/18 10/17/18 10/17/18 05:00 05:00 05:00 WBC 11.6 H RBC 2.99 L Hgb 8.0 L Hct 24.2 L MCV 81 MCH 27 L MCHC 33 RDW 19.2 H Plt Count 266 Add Manual Diff Complete Total Counted 100 Seg Neuts % (Manual) 87.0 H Band Neutrophils % 0 Lymphocytes % (Manual) 9.0 L Reactive Lymphs % (Man) 0 Monocytes % (Manual) 2.0 Eosinophils % (Manual) 2.0 Basophils % (Manual) 0 Metamyelocytes % 0 Myelocytes % 0 Promyelocytes % 0 Blast Cells % 0 Nucleated RBC % Not Reportable Seg Neutrophils # Man 10.1 H Band Neutrophils # 0.0 Lymphocytes # (Manual) 1.0 L Abs React Lymphs (Man) 0.0 Monocytes # (Manual) 0.2 Eosinophils # (Manual) 0.2 Basophils # (Manual) 0.0 Metamyelocytes # 0.0 Myelocytes # 0.0 Promyelocytes # 0.0 Blast Cells # 0.0 WBC Morphology Not Reportable Hypersegmented Neuts Not Reportable Hyposegmented Neuts Not Reportable Hypogranular Neuts Not Reportable Smudge Cells Not Reportable Toxic Granulation Not Reportable Toxic Vacuolation Not Reportable Dohle Bodies Not Reportable Pelger-Huet Anomaly Not Reportable Mary Rods Not Reportable Platelet Estimate Consistent w auto Clumped Platelets Not Reportable Plt Clumps, EDTA Not Reportable Large Platelets Not Reportable Giant Platelets Not Reportable Platelet Satelliting Not Reportable Plt Morphology Comment Not Reportable RBC Morphology Not Reportable Dimorphic RBCs Not Reportable Polychromasia Not Reportable Hypochromasia 1+ Poikilocytosis Few Anisocytosis 1+ Microcytosis Not Reportable Macrocytosis Rare Spherocytes Not Reportable Pappenheimer Bodies Not Reportable Sickle Cells Not Reportable Target Cells Not Reportable Tear Drop Cells Not Reportable Ovalocytes Not Reportable Helmet Cells Not Reportable [place] Bodies Not Reportable [place] Rings Not Reportable [place] Cells Not Reportable Bite Cells Not Reportable Crenated Cell Not Reportable Elliptocytes Not Reportable Acanthocytes (Spur) Not Reportable Rouleaux Not Reportable Hemoglobin C Crystals Not Reportable Schistocytes Not Reportable Malaria parasites Not Reportable Michael Bodies Not Reportable Hem Pathologist Commnt No PT 60.2 H INR 6.30 H* Sodium 144 Potassium 3.4 L D Chloride 103.9 Carbon Dioxide 27 D Anion Gap 17 BUN 17 Creatinine 1.4 H Estimated GFR 48 BUN/Creatinine Ratio 12 Glucose 170 H POC Glucose Calcium 7.6 L Total Bilirubin 0.60 Direct Bilirubin < 0.2 Indirect Bilirubin 0.4 AST 14 ALT 8 Alkaline Phosphatase 104 Total Protein 5.4 L Albumin 2.2 L Albumin/Globulin Ratio 0.7 10/17/18 10/17/18 05:29 11:59 WBC RBC Hgb Hct MCV MCH MCHC RDW Plt Count Add Manual Diff Total Counted Seg Neuts % (Manual) Band Neutrophils % Lymphocytes % (Manual) Reactive Lymphs % (Man) Monocytes % (Manual) Eosinophils % (Manual) Basophils % (Manual) Metamyelocytes % Myelocytes % Promyelocytes % Blast Cells % Nucleated RBC % Seg Neutrophils # Man Band Neutrophils # Lymphocytes # (Manual) Abs React Lymphs (Man) Monocytes # (Manual) Eosinophils # (Manual) Basophils # (Manual) Metamyelocytes # Myelocytes # Promyelocytes # Blast Cells # WBC Morphology Hypersegmented Neuts Hyposegmented Neuts Hypogranular Neuts Smudge Cells Toxic Granulation Toxic Vacuolation Dohle Bodies Pelger-Huet Anomaly Mary Rods Platelet Estimate Clumped Platelets Plt Clumps, EDTA Large Platelets Giant Platelets Platelet Satelliting Plt Morphology Comment RBC Morphology Dimorphic RBCs Polychromasia Hypochromasia Poikilocytosis Anisocytosis Microcytosis Macrocytosis Spherocytes Pappenheimer Bodies Sickle Cells Target Cells Tear Drop Cells Ovalocytes Helmet Cells [place] Bodies [place] Rings [place] Cells Bite Cells Crenated Cell Elliptocytes Acanthocytes (Spur) Rouleaux Hemoglobin C Crystals Schistocytes Malaria parasites Michael Bodies Hem Pathologist Commnt PT INR Sodium Potassium Chloride Carbon Dioxide Anion Gap BUN Creatinine Estimated GFR BUN/Creatinine Ratio Glucose POC Glucose 156 H 389 H Calcium Total Bilirubin Direct Bilirubin Indirect Bilirubin AST ALT Alkaline Phosphatase Total Protein Albumin Albumin/Globulin Ratio <EDWIGE CAMERON - Last Filed: 10/17/18 20:58> Assessment and Plan Patient seen and examined. I have reviewed the advanced practitioner's evaluation, assessment, and plan, and agree with them. I note the following additions: patient starting to clinically improve, but still high risk for endoscopic evaluation. Can consider EGD/colon in the future, but only if cleared first from pulm and cards and she would need to have all anticoagulation stopped for the procedure. - Patient Problems (1) Acute respiratory failure Current Visit: Yes Status: Acute (2) Heart failure with reduced ejection fraction Current Visit: Yes Status: Acute (3) Anemia Current Visit: Yes Status: Chronic (4) History of GI bleed Current Visit: Yes Status: Chronic Objective - Constitutional Vitals: Temp Pulse Resp BP Pulse Ox 99.5 F 104 H 20 144/89 96 10/17/18 08:00 10/17/18 18:22 10/17/18 09:31 10/17/18 18:22 10/17/18 20:13 - Labs CBC & Chem 7: 10/17/18 05:00 10/17/18 05:00 Labs: Laboratory Results - last 24 hr 10/16/18 10/16/18 10/17/18 13:03 17:15 00:35 WBC RBC Hgb Hct MCV MCH MCHC RDW Plt Count Add Manual Diff Total Counted Seg Neuts % (Manual) Band Neutrophils % Lymphocytes % (Manual) Reactive Lymphs % (Man) Monocytes % (Manual) Eosinophils % (Manual) Basophils % (Manual) Metamyelocytes % Myelocytes % Promyelocytes % Blast Cells % Nucleated RBC % Seg Neutrophils # Man Band Neutrophils # Lymphocytes # (Manual) Abs React Lymphs (Man) Monocytes # (Manual) Eosinophils # (Manual) Basophils # (Manual) Metamyelocytes # Myelocytes # Promyelocytes # Blast Cells # WBC Morphology Hypersegmented Neuts Hyposegmented Neuts Hypogranular Neuts Smudge Cells Toxic Granulation Toxic Vacuolation Dohle Bodies Pelger-Huet Anomaly Mary Rods Platelet Estimate Clumped Platelets Plt Clumps, EDTA Large Platelets Giant Platelets Platelet Satelliting Plt Morphology Comment RBC Morphology Dimorphic RBCs Polychromasia Hypochromasia Poikilocytosis Anisocytosis Microcytosis Macrocytosis Spherocytes Pappenheimer Bodies Sickle Cells Target Cells Tear Drop Cells Ovalocytes Helmet Cells [place] Bodies [place] Rings Jerri Cells Bite Cells Crenated Cell Elliptocytes Acanthocytes (Spur) Rouleaux Hemoglobin C Crystals Schistocytes Malaria parasites Michael Bodies Hem Pathologist Commnt PT INR Sodium Potassium Chloride Carbon Dioxide Anion Gap BUN Creatinine Estimated GFR BUN/Creatinine Ratio Glucose POC Glucose 329 H 85 407 H Calcium Total Bilirubin Direct Bilirubin Indirect Bilirubin AST ALT Alkaline Phosphatase Total Protein Albumin Albumin/Globulin Ratio 10/17/18 10/17/18 10/17/18 05:00 05:00 05:00 WBC 11.6 H RBC 2.99 L Hgb 8.0 L Hct 24.2 L MCV 81 MCH 27 L MCHC 33 RDW 19.2 H Plt Count 266 Add Manual Diff Complete Total Counted 100 Seg Neuts % (Manual) 87.0 H Band Neutrophils % 0 Lymphocytes % (Manual) 9.0 L Reactive Lymphs % (Man) 0 Monocytes % (Manual) 2.0 Eosinophils % (Manual) 2.0 Basophils % (Manual) 0 Metamyelocytes % 0 Myelocytes % 0 Promyelocytes % 0 Blast Cells % 0 Nucleated RBC % Not Reportable Seg Neutrophils # Man 10.1 H Band Neutrophils # 0.0 Lymphocytes # (Manual) 1.0 L Abs React Lymphs (Man) 0.0 Monocytes # (Manual) 0.2 Eosinophils # (Manual) 0.2 Basophils # (Manual) 0.0 Metamyelocytes # 0.0 Myelocytes # 0.0 Promyelocytes # 0.0 Blast Cells # 0.0 WBC Morphology Not Reportable Hypersegmented Neuts Not Reportable Hyposegmented Neuts Not Reportable Hypogranular Neuts Not Reportable Smudge Cells Not Reportable Toxic Granulation Not Reportable Toxic Vacuolation Not Reportable Dohle Bodies Not Reportable Pelger-Huet Anomaly Not Reportable Mary Rods Not Reportable Platelet Estimate Consistent w auto Clumped Platelets Not Reportable Plt Clumps, EDTA Not Reportable Large Platelets Not Reportable Giant Platelets Not Reportable Platelet Satelliting Not Reportable Plt Morphology Comment Not Reportable RBC Morphology Not Reportable Dimorphic RBCs Not Reportable Polychromasia Not Reportable Hypochromasia 1+ Poikilocytosis Few Anisocytosis 1+ Microcytosis Not Reportable Macrocytosis Rare Spherocytes Not Reportable Pappenheimer Bodies Not Reportable Sickle Cells Not Reportable Target Cells Not Reportable Tear Drop Cells Not Reportable Ovalocytes Not Reportable Helmet Cells Not Reportable [place] Bodies Not Reportable [place] Rings Not Reportable Jerri Cells Not Reportable Bite Cells Not Reportable Crenated Cell Not Reportable Elliptocytes Not Reportable Acanthocytes (Spur) Not Reportable Rouleaux Not Reportable Hemoglobin C Crystals Not Reportable Schistocytes Not Reportable Malaria parasites Not Reportable Michael Bodies Not Reportable Hem Pathologist Commnt No PT 60.2 H INR 6.30 H* Sodium 144 Potassium 3.4 L D Chloride 103.9 Carbon Dioxide 27 D Anion Gap 17 BUN 17 Creatinine 1.4 H Estimated GFR 48 BUN/Creatinine Ratio 12 Glucose 170 H POC Glucose Calcium 7.6 L Total Bilirubin 0.60 Direct Bilirubin < 0.2 Indirect Bilirubin 0.4 AST 14 ALT 8 Alkaline Phosphatase 104 Total Protein 5.4 L Albumin 2.2 L Albumin/Globulin Ratio 0.7 10/17/18 10/17/18 10/17/18 05:29 11:59 17:06 WBC RBC Hgb Hct MCV MCH MCHC RDW Plt Count Add Manual Diff Total Counted Seg Neuts % (Manual) Band Neutrophils % Lymphocytes % (Manual) Reactive Lymphs % (Man) Monocytes % (Manual) Eosinophils % (Manual) Basophils % (Manual) Metamyelocytes % Myelocytes % Promyelocytes % Blast Cells % Nucleated RBC % Seg Neutrophils # Man Band Neutrophils # Lymphocytes # (Manual) Abs React Lymphs (Man) Monocytes # (Manual) Eosinophils # (Manual) Basophils # (Manual) Metamyelocytes # Myelocytes # Promyelocytes # Blast Cells # WBC Morphology Hypersegmented Neuts Hyposegmented Neuts Hypogranular Neuts Smudge Cells Toxic Granulation Toxic Vacuolation Dohle Bodies Pelger-Huet Anomaly Mary Rods Platelet Estimate Clumped Platelets Plt Clumps, EDTA Large Platelets Giant Platelets Platelet Satelliting Plt Morphology Comment RBC Morphology Dimorphic RBCs Polychromasia Hypochromasia Poikilocytosis Anisocytosis Microcytosis Macrocytosis Spherocytes Pappenheimer Bodies Sickle Cells Target Cells Tear Drop Cells Ovalocytes Helmet Cells [place] Bodies [place] Rings [place] Cells Bite Cells Crenated Cell Elliptocytes Acanthocytes (Spur) Rouleaux Hemoglobin C Crystals Schistocytes Malaria parasites Michael Bodies Hem Pathologist Commnt PT INR Sodium Potassium Chloride Carbon Dioxide Anion Gap BUN Creatinine Estimated GFR BUN/Creatinine Ratio Glucose POC Glucose 156 H 389 H 151 H Calcium Total Bilirubin Direct Bilirubin Indirect Bilirubin AST ALT Alkaline Phosphatase Total Protein Albumin Albumin/Globulin Ratio
[2018-10-18] MEDS: LOPRESSOR PO SCH ×4 (00:33→21:39)
[2018-10-18] MEDS: HumaLOG SUB-Q SCH ×5 (00:33→17:19)
[2018-10-18 05:27] LABS: Basophils # (Auto) 0.1 K/mm3 (0.0-0.1); Basophils % (Auto) 0.6 % (0.0-1.8); Eosinophils # (Auto) 0.4 K/mm3 (0.0-0.4); Eosinophils % (Auto) 3.5 % (0.0-4.3); Hematocrit 24.6 % (30.3-42.9); Hemoglobin 8.1 gm/dl (10.1-14.3); Lymphocytes # (Auto) 1.4 K/mm3 (1.2-5.4); Lymphocytes % (Auto) 12.7 % (13.4-35.0); Mean Corpuscular HGB Conc 33 % (30-34); Mean Corpuscular Volume 82 fl (79-97); Monocytes # (Auto) 0.7 K/mm3 (0.0-0.8); Monocytes % (Auto) 6.9 % (0.0-7.3); Platelet Count 298 K/mm3 (140-440); Red Blood Count 3.01 M/mm3 (3.65-5.03); Red Cell Distribution Width 19.7 % (13.2-15.2)
[2018-10-18 05:36] LABS: INR 3.72 (0.87-1.13)
[2018-10-18 05:42] LABS: Calcium 7.4 mg/dL (8.4-10.2)
[2018-10-18] MEDS: LASIX IV SCH ×3 (07:14→17:20)
[2018-10-18] MEDS ORDERED: K-DUR PO ONE (10:00)
[2018-10-18] MEDS: LANTUS SUB-Q SCH (10:44)
[2018-10-18] MEDS: SODIUM CHLORIDE FLUSH SYRINGE 10 ML IV SCH ×2 (10:45→21:39)
[2018-10-18] MEDS: PREVACID SOLUTAB FEEDTUBE SCH ×2 (10:46→21:39)
--- NOTE | 2018-10-18 11:12 | Progress Note ---
Assessment and Plan Assessment and plan: 48 year old woman with history of coronary artery disease, status post cabbage, diabetes, hypertension who was brought to the emergency room for altered mental status. She was found to have hypoglycemia, she was also having convulsions at the time of admission. The patient was intubated, sp dextrose she was put on the ventilator she was found to have pneumonia and CHF flare and started on antibiotics. patient has history of MV replacement and was on anticoagulation. Pneumonia, severe sepsis - Patient was on IV antibiotics and completed on 10/13 per ID Acute hypoxic respiratory failure on MV >96 hrs Was intubated and on mechanical ventilation - patient was extubated on 10/13 - cont to wean o2 via NC status epilepticus; Seizures when most likely due to hypoglycemia -Treated with dextrose -, neurology consult appreciated Acute on chronic systolic CHF EF 40%, dilated ventricles - on bumex, optimize meds, cardiology consult History of [facility] mitral valve replacement/hypercoaguable state/coagulopathy due to warfarin INR supraptherapeutic, warfarin on hold -very sensitive to warfain and gets supratherapeutic very quickly after a few doses, hematology consulted Severe anemia - Patient's hemoglobin dropped to 5. 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, treated as type 1, uncontrolled, a1c 10.2 Continue insulins, brittle DM with episodes of hypoglycemia and hyperglycemia, labile glc Mazin upon ckd stage 3, vasomotor nephropathy and likely ATN from sepsis Nephrology input appreciated, avoid nephrotoxins, neph signed off on 10/15 hypernatremia resolved after she received hypotonic ivf Hyperkalemia resolved with insulin and diuretics htn urgency; optimized bp meds Marijuana abuse; was counseled, preventive health counseling, done 17 mins spent dvt ppx- chemical, CCT 33 mins History Interval history: Review of systems Constitutional: No fevers, no malaise, no joint pains CVS: No chest pain, no pedal edema, sob is improved GI:no hematemesis, blood in stool or melena, No abdominal pain, no diarrhea, no vomiting, no constipation Respiratory: No cough or wheezing Hospitalist Physical - Physical exam Narrative exam: General.: appears well HEENT: Moist mucous membranes, extraocular muscles intact, no lymphadenopathy Neck: supple Cardiac: S1-S2 heard Lungs: rales in bases Abdomen: soft , nontender, nondistended, bowel sounds positive Extremities: no edema clubbing or cyanosis Skin: no rash or lesions Neurologic: no focal deficit Psych: calm and cooperative - Constitutional Vitals: Temp Pulse Resp BP Pulse Ox 98.6 F 102 H 18 145/76 100 10/18/18 06:39 10/18/18 08:41 10/18/18 07:12 10/18/18 08:41 10/18/18 08:22 General appearance: Present: other (intubated, eyes open, no purposeful response to commands) Results - Labs CBC & Chem 7: 10/20/18 03:00 10/20/18 03:00 Labs: Laboratory Last Values WBC 10.8 K/mm3 (4.5-11.0) 10/18/18 04:17 RBC 3.01 M/mm3 (3.65-5.03) L 10/18/18 04:17 Hgb 8.1 gm/dl (10.1-14.3) L 10/18/18 04:17 Hct 24.6 % (30.3-42.9) L 10/18/18 04:17 MCV 82 fl (79-97) 10/18/18 04:17 MCH 27 pg (28-32) L 10/18/18 04:17 MCHC 33 % (30-34) 10/18/18 04:17 RDW 19.7 % (13.2-15.2) H 10/18/18 04:17 Plt Count 298 K/mm3 (140-440) 10/18/18 04:17 Lymph % (Auto) 12.7 % (13.4-35.0) L 10/18/18 04:17 [place] % (Auto) 6.9 % (0.0-7.3) 10/18/18 04:17 Eos % (Auto) 3.5 % (0.0-4.3) 10/18/18 04:17 Baso % (Auto) 0.6 % (0.0-1.8) 10/18/18 04:17 Lymph # 1.4 K/mm3 (1.2-5.4) 10/18/18 04:17 [place] # 0.7 K/mm3 (0.0-0.8) 10/18/18 04:17 Eos # 0.4 K/mm3 (0.0-0.4) 10/18/18 04:17 Baso # 0.1 K/mm3 (0.0-0.1) 10/18/18 04:17 Add Manual Diff Complete 10/17/18 05:00 Total Counted 100 10/17/18 05:00 Seg Neutrophils % 76.3 % (40.0-70.0) H 10/18/18 04:17 Seg Neuts % (Manual) 87.0 % (40.0-70.0) H 10/17/18 05:00 0 % 10/17/18 05:00 9.0 % (13.4-35.0) L 10/17/18 05:00 Reactive Lymphs % (Man) 0 % 10/17/18 05:00 2.0 % (0.0-7.3) 10/17/18 05:00 2.0 % (0.0-4.3) 10/17/18 05:00 0 % (0.0-1.8) 10/17/18 05:00 0 % 10/17/18 05:00 0 % 10/17/18 05:00 0 % 10/17/18 05:00 0 % 10/17/18 05:00 Nucleated RBC % Not Reportable 10/17/18 05:00 Seg Neutrophils # 8.2 K/mm3 (1.8-7.7) H 10/18/18 04:17 Seg Neutrophils # Man 10.1 K/mm3 (1.8-7.7) H 10/17/18 05:00 Band Neutrophils # 0.0 K/mm3 10/17/18 05:00 1.0 K/mm3 (1.2-5.4) L 10/17/18 05:00 Abs React Lymphs (Man) 0.0 K/mm3 10/17/18 05:00 0.2 K/mm3 (0.0-0.8) 10/17/18 05:00 0.2 K/mm3 (0.0-0.4) 10/17/18 05:00 0.0 K/mm3 (0.0-0.1) 10/17/18 05:00 0.0 K/mm3 10/17/18 05:00 0.0 K/mm3 10/17/18 05:00 0.0 K/mm3 10/17/18 05:00 Blast Cells # 0.0 K/mm3 10/17/18 05:00 WBC Morphology Not Reportable 10/17/18 05:00 Hypersegmented Neuts Not Reportable 10/17/18 05:00 Hyposegmented Neuts Not Reportable 10/17/18 05:00 Hypogranular Neuts Not Reportable 10/17/18 05:00 Not Reportable 10/17/18 05:00 Not Reportable 10/17/18 05:00 Not Reportable 10/17/18 05:00 Not Reportable 10/17/18 05:00 Not Reportable 10/17/18 05:00 Not Reportable 10/17/18 05:00 Consistent w auto 10/17/18 05:00 Not Reportable 10/17/18 05:00 Plt Clumps, EDTA Not Reportable 10/17/18 05:00 Not Reportable 10/17/18 05:00 Not Reportable 10/17/18 05:00 Not Reportable 10/17/18 05:00 Plt Morphology Comment Not Reportable 10/17/18 05:00 RBC Morphology Not Reportable 10/17/18 05:00 Dimorphic RBCs Not Reportable 10/17/18 05:00 Not Reportable 10/17/18 05:00 1+ 10/17/18 05:00 Few 10/17/18 05:00 1+ 10/17/18 05:00 Not Reportable 10/17/18 05:00 Rare 10/17/18 05:00 Not Reportable 10/17/18 05:00 Not Reportable 10/17/18 05:00 Not Reportable 10/17/18 05:00 Not Reportable 10/17/18 05:00 Not Reportable 10/17/18 05:00 Not Reportable 10/17/18 05:00 Not Reportable 10/17/18 05:00 Not Reportable 10/17/18 05:00 Not Reportable 10/17/18 05:00 Not Reportable 10/17/18 05:00 Not Reportable 10/17/18 05:00 Not Reportable 10/17/18 05:00 Not Reportable 10/17/18 05:00 Acanthocytes (Spur) Not Reportable 10/17/18 05:00 Rouleaux Not Reportable 10/17/18 05:00 Not Reportable 10/17/18 05:00 Not Reportable 10/17/18 05:00 Not Reportable 10/17/18 05:00 Not Reportable 10/17/18 05:00 Hem Pathologist Commnt No 10/17/18 05:00 PT 39.5 Sec. (12.2-14.9) H 10/18/18 04:17 INR 3.72 (0.87-1.13) H 10/18/18 04:17 APTT 54.9 Sec. (24.2-36.6) H 10/11/18 14:25 Heparin Anti-Xa Level 0.25 U.I./ml (0.3-0.7) L 10/15/18 07:00 POC ABG pH 7.426 (7.35-7.45) 10/13/18 09:41 POC ABG pCO2 37.2 (35-45) 10/13/18 09:41 POC ABG pO2 71 (80-105) L 10/13/18 04:50 POC ABG HCO3 24.4 (22-26 mml/L) 10/13/18 09:41 POC ABG Total CO2 26 (23-27mmol/L) 10/13/18 09:41 POC ABG O2 Sat 70 10/13/18 09:41 POC ABG Base Excess 0 ((-2) - (+3)mmol/L) 10/13/18 09:41 30 % 10/13/18 09:41 Sodium 141 mmol/L (137-145) 10/18/18 04:17 Potassium 3.5 mmol/L (3.6-5.0) L 10/18/18 04:17 Chloride 102.5 mmol/L (98-107) 10/18/18 04:17 Carbon Dioxide 28 mmol/L (22-30) 10/18/18 04:17 14 mmol/L 10/18/18 04:17 BUN 16 mg/dL (7-17) 10/18/18 04:17 1.5 mg/dL (0.7-1.2) H 10/18/18 04:17 Estimated GFR 45 ml/min 10/18/18 04:17 11 % 10/18/18 04:17 Glucose 115 mg/dL (65-100) H 10/18/18 04:17 POC Glucose 170 (70-105) H 10/18/18 06:45 10.2 % (4-6) H 10/07/18 22:08 Lactic Acid 1.50 mmol/L (0.7-2.0) 10/08/18 17:09 Calcium 7.4 mg/dL (8.4-10.2) L 10/18/18 04:17 Phosphorus 7.40 mg/dL (2.5-4.5) H 10/07/18 22:08 Magnesium 1.90 mg/dL (1.7-2.3) 10/08/18 04:05 0.60 mg/dL (0.1-1.2) 10/17/18 05:00 < 0.2 mg/dL (0-0.2) 10/17/18 05:00 0.4 mg/dL 10/17/18 05:00 AST 14 units/L (5-40) 10/17/18 05:00 ALT 8 units/L (7-56) 10/17/18 05:00 104 units/L (35-129) 10/17/18 05:00 40.0 umol/L (25-60) 10/07/18 02:43 < 0.010 ng/mL (0.00-0.029) 10/07/18 08:59 0.20 mg/dL (0.00-1.30) 10/07/18 14:55 NT-Pro-B Natriuret Pep 2865 pg/mL (0-450) H 10/09/18 03:20 5.4 g/dL (6.3-8.2) L 10/17/18 05:00 2.2 g/dL (3.9-5) L 10/17/18 05:00 0.7 % 10/17/18 05:00 Straw (Yellow) 10/07/18 02:34 Clear (Clear) 10/07/18 02:34 7.0 (5.0-7.0) 10/07/18 02:34 Ur Specific [place] 1.006 (1.003-1.030) 10/07/18 02:34 100 mg/dl mg/dL (Negative) 10/07/18 02:34 Neg mg/dL (Negative) 10/07/18 02:34 Neg mg/dL (Negative) 10/07/18 02:34 Sm (Negative) 10/07/18 02:34 Neg (Negative) 10/07/18 02:34 Neg (Negative) 10/07/18 02:34 < 2.0 mg/dL (<2.0) 10/07/18 02:34 Ur Leukocyte Esterase Tr (Negative) 10/07/18 02:34 1.0 /HPF (0.0-6.0) 10/07/18 02:34 5.0 /HPF (0.0-6.0) 10/07/18 02:34 U Epithel Cells (Auto) 1.0 /HPF (0-13.0) 10/07/18 02:34 Hyaline Casts 3 /LPF 10/07/18 02:34 Few /HPF 10/07/18 02:34 Presumptive negative 10/07/18 02:34 Presumptive negative 10/07/18 02:34 Ur Barbiturates Screen Presumptive negative 10/07/18 02:34 Ur Phencyclidine Scrn Presumptive negative 10/07/18 02:34 Ur Amphetamines Screen Presumptive negative 10/07/18 02:34 U Benzodiazepines Scrn Presumptive negative 10/07/18 02:34 Presumptive negative 10/07/18 02:34 U Marijuana (THC) Screen Presumptive positive 10/07/18 02:34 Disclamer 10/07/18 02:34 Blood Type O POSITIVE 10/15/18 10:27 Antibody Screen Negative 10/15/18 10:27 Crossmatch See Detail 10/15/18 10:27 Active Medications - Current Medications Current Medications: Generic Name Dose Route Start Last Admin Trade Name Freq PRN Reason Stop Dose Admin Acetaminophen 650 mg 10/07/18 04:59 10/12/18 12:47 Tylenol PO 650 mg Q4H PRN Administration Pain MILD(1-3)/Fever >100.5/RODRIGUEZ Lipase/Protease/Amylase 1 each 10/08/18 10:[address] 10,500 Unit FEEDTUBE PRN PRN For Clogged Feeding Tube Dextrose 50 ml 10/07/18 20:42 10/10/18 05:46 D50w (25gm) Syringe IV 50 ml PRN PRN Administration Hypoglycemia Furosemide 40 mg 10/18/18 06:00 10/18/18 07:14 Lasix IV 40 mg Q12H ULI Administration Hydralazine HCl 10 mg 10/07/18 05:07 10/14/18 08:35 Apresoline IV 10 mg Q4H PRN Administration Blood Pressure Hydrophilic Ointment 1 applic 10/07/18 02:40 Vaseline Lip Therapy TP Q2HR PRN Dry Lips Insulin Glargine 5 units 10/12/18 12:00 10/18/18 10:44 Lantus SUB-Q 5 units DAILY ULI Administration Insulin Human Lispro 0 unit 10/09/18 00:00 10/18/18 08:30 Humalog SUB-Q 1 unit Q6HR ULI Administration Protocol Lansoprazole 30 mg 10/16/18 22:00 10/18/18 10:46 Prevacid Solutab FEEDTUBE 30 mg BID ULI Administration Metoclopramide HCl 10 mg 10/11/18 13:00 10/12/18 19:32 Reglan IV 10 mg Q6HR PRN Administration Nausea And Vomiting Metoprolol Tartrate 50 mg 10/14/18 08:40 10/18/18 08:41 Lopressor PO 50 mg TID ULI Administration Multi-Ingred Cream/Lotion/Oil/Oint 1 applic 10/07/18 02:40 Artificial Tears Ophth Oint OU Q4HR PRN Dry Eye(s) Ondansetron HCl 4 mg 10/07/18 04:59 Zofran IV Q8H PRN N/V unrelieved by Reglan Quetiapine Fumarate 100 mg 10/09/18 22:00 10/17/18 22:02 Seroquel PO 100 mg QHS ULI Administration Simple Syrup 15 ml 10/08/18 10:00 Simple Syrup FEEDTUBE PRN PRN Hypoglycemia Simple Syrup 30 ml 10/08/18 10:00 10/09/18 01:09 Simple Syrup FEEDTUBE 30 ml PRN PRN Administration Hypoglycemia Sodium Bicarbonate 325 mg 10/08/18 10:00 Sodium Bicarbonate FEEDTUBE PRN PRN For Clogged Feeding Tube Sodium Chloride 10 ml 10/07/18 10:00 10/18/18 10:45 Sodium Chloride Flush Syringe 10 Ml IV 10 ml BID ULI Administration Sodium Chloride 10 ml 10/07/18 04:59 05/14/19 07:15 Sodium Chloride Flush Syringe 10 Ml IV 10 ml PRN PRN Administration LINE FLUSH Nutrition/Malnutrition Assess - Dietary Evaluation Nutrition/Malnutrition Findings: Nutrition Notes Start: 10/07/18 12:17 Freq: Status: Active Protocol: Document 10/18/18 10:18 CP (Rec: 10/18/18 10:25 CP [id number]) Co-Sign 10/18/18 10:18 LP Nutrition Notes Initial or Follow up Reassessment Current Diagnosis CKD (stage V CKD),Diabetes, Hypertension,Heart Failure Current Diet Cardiac diet Labs/Tests K 3.5 BG 115 Pertinent Medications Lasix Humalog Height 5 ft 2 in Weight 54.1 kg [place] Body Weight (kg) 50.00 BMI 21.8 Subjective/Other Information F/U for PO tolerance, diet advancement, need for DNI education. Pt appeared to be half-awake during time of visit. Observed uneaten tray by bedside. When asked if she wanted an ONS, the pt nodded her head. Per RN note, pt ate 100% of her dinner last night. Pt is not on coumadin medication currently. Percent of energy/protein needs met: 0%/0% Burn Absent Trauma Absent #1 Nutrition Diagnosis Inadequate oral intake Diagnosis Progress(for reassessment Continues documentation) Is patient on ventilator? No Is Patient Ambulatory and/or Out of Bed No REE-([facility]-confined to bed) 1347.156 Calculation Used for Recommendations [facility] Additional Notes Pro needs 0.8-1g/k-54g/ day Fluid needs 1ml/kcal Nutrition Intervention Change Diet Order: Continue current or per MD request Goal #1 PO tolerance Goal #2 PO intake to meet at least 75% of energy and protein needs Goal #3 Improved BG control Follow-Up By: 10/20/18 Additional Comments F/U: PO tolerance, diet advancement
--- NOTE | 2018-10-18 11:27 | Progress Note ---
Assessment and Plan INR 3.72 this AM. Would resume heparin gtt if INR <3.5 and ultimately resume coumadin with tx INR 2.5-3.5 if okay from GI standpoint. Per GI team, repeat endoscopy may be warranted. Currently stable cardiac status. Pt is at high cardiovascular risk for endoscopy in setting of multiple cardiac co-morbidities. However, there are no immediate cardiac contraindications to proceeding with endoscopy at this time. Cont IV diuresis and PO lopressor. Consider ACEI/ARB if okay per nephrology. The patient has been seen in conjunction with Dr. Colmenares who agrees with the assessment and plan of care. - Patient Problems (1) Altered mental status Current Visit: Yes Status: Acute (2) Seizures Current Visit: Yes Status: Suspected (3) Hypoglycemia Current Visit: Yes Status: Acute (4) Acute respiratory failure Current Visit: Yes Status: Acute (5) Pneumonia Current Visit: Yes Status: Acute Qualifiers: Pneumonia type: due to unspecified organism Laterality: right Lung location: middle lobe of lung Qualified Code(s): J18.1 - Lobar pneumonia, unspecified organism (6) Sepsis Current Visit: Yes Status: Suspected Qualifiers: Sepsis type: sepsis due to unspecified organism Qualified Code(s): A41.9 - Sepsis, unspecified organism (7) CAD (coronary artery disease) Current Visit: Yes Status: Chronic (8) History of coronary artery bypass graft Current Visit: Yes Status: Chronic (9) H/O mitral valve replacement with mechanical valve Current Visit: Yes Status: Chronic (10) Heart failure with reduced ejection fraction Current Visit: Yes Status: Acute (11) Acute on chronic renal failure Current Visit: Yes Status: Acute (12) Anemia Current Visit: Yes Status: Chronic (13) History of GI bleed Current Visit: Yes Status: Chronic (14) Diabetes Current Visit: Yes Status: Chronic Subjective Date of service: 10/18/18 Principal diagnosis: anemia/GI bleed? Interval history: pt alert and oriented, no current cardiac complaints. Objective Last Vital Signs Temp 98.6 F 10/18/18 06:39 Pulse 102 H 10/18/18 08:41 Resp 18 10/18/18 07:12 BP 145/76 10/18/18 08:41 Pulse Ox 100 10/18/18 08:22 - Physical Examination General: No Apparent Distress HEENT: Positive: PERRL Neck: Positive: neck supple Cardiac: Positive: Reg Rate and Rhythm, S1/S2 Lungs: Positive: Decreased Breath Sounds Neuro: Positive: Grossly Intact Abdomen: Negative: Tender Skin: Negative: Rash Extremities: Absent: edema - Labs and Meds Coagulation 10/18/18 Range/Units 04:17 PT 39.5 H (12.2-14.9) Sec. INR 3.72 H (0.87-1.13) CBC 10/18/18 Range/Units 04:17 WBC 10.8 (4.5-11.0) K/mm3 RBC 3.01 L (3.65-5.03) M/mm3 Hgb 8.1 L (10.1-14.3) gm/dl Hct 24.6 L (30.3-42.9) % Plt Count 298 (140-440) K/mm3 Lymph # 1.4 (1.2-5.4) K/mm3 [place] # 0.7 (0.0-0.8) K/mm3 Eos # 0.4 (0.0-0.4) K/mm3 Baso # 0.1 (0.0-0.1) K/mm3 Comprehensive Metabolic Panel 10/18/18 Range/Units 04:17 Sodium 141 (137-145) mmol/L Potassium 3.5 L (3.6-5.0) mmol/L Chloride 102.5 (98-107) mmol/L Carbon Dioxide 28 (22-30) mmol/L BUN 16 (7-17) mg/dL Creatinine 1.5 H (0.7-1.2) mg/dL Glucose 115 H (65-100) mg/dL Calcium 7.4 L (8.4-10.2) mg/dL - Imaging and Cardiology EKG: report reviewed, image reviewed Echo: report reviewed (07/2018: EF 40%, mild to mod LVH, LA and RA dilated, mod TR and NH, mechanical valve in mitral position that appears to be functioning properly. 10/2018: EF 35-40%, mod LVH, abnormal diastolic function, LA severely dilated, mechanical MV appears well seated with normal function, mod pulm HTN. 11/2016 showed EF 40-45%, abnormal diastolic function, trace MR, mild TR, RVSP 36mmHg. ) - EKG Sinus rhythms and dysrhythmias: sinus rhythm Chamber hypertrophy or enlargement: left ventricular hypertro - Allied health notes Allied health notes reviewed: nursing
--- NOTE | 2018-10-18 13:22 | Progress Note ---
Assessment and Plan Patient resting on 2 litres O2. O2 saturation O2 saturation 89%. Increase O2 to 3 litres. Patient weak. No acute respiratory distress. - Patient Problems (1) Acute respiratory failure with hypoxia Current Visit: Yes Status: Acute Plan to address problem: O2 3 litres via nasal canula. Albuterol/atrovent aerosol treatments q 6 hours. Repeat ABGs. (2) Acute on chronic renal failure Current Visit: Yes Status: Acute Plan to address problem: Management as per nephrology. (3) Altered mental status Current Visit: Yes Status: Acute Plan to address problem: Management as per primary care. (4) Heart failure with reduced ejection fraction Current Visit: Yes Status: Acute Plan to address problem: Management as per cardiology. (5) Diabetes Current Visit: Yes Status: Chronic Plan to address problem: Management as per primary care. (6) H/O mitral valve replacement with mechanical valve Current Visit: Yes Status: Chronic Plan to address problem: Management as per cardiology. Subjective Date of service: 10/18/18 Principal diagnosis: anemia/GI bleed? Interval history: Patient resting on 2 litres O2. O2 saturation O2 saturation 89%. Increase O2 to 3 litres. Patient weak. No acute respiratory distress. Objective Vital Signs - 12hr 10/18/18 10/18/18 10/18/18 06:39 07:12 08:22 Temperature 98.6 F Pulse Rate 99 H 99 H Respiratory 18 18 Rate Blood Pressure 126/75 O2 Sat by Pulse 90 97 100 Oximetry 10/18/18 10/18/18 10/18/18 08:40 08:41 11:49 Temperature 99.1 F Pulse Rate 102 H 97 H Respiratory 18 Rate Blood Pressure 145/76 145/76 114/71 O2 Sat by Pulse 96 Oximetry Constitutional: no acute distress, other (middle aged AAF, normocephalic, atraumatic) Eyes: non-icteric ENT: oropharynx moist, other (extubated) Neck: supple, no lymphadenopathy, no JVD Effort: mildly labored Ascultation: Bilateral: diminished breath sounds (bases), rales Percussion: Right: dull (base), Bilateral: not dull Cardiovascular: regular rate and rhythm, other (+ metallic valve tones) Gastrointestinal: normoactive bowel sounds, soft, non-tender, non-distended, other (No HSM) Integumentary: normal Extremities: no cyanosis, no edema, pulses normal, no ischemia or petechiae Neurologic: non-focal exam (grossly), pupils equal and round, CN II-XII normal, motor strength normal and, other (slow speech) Psychiatric: other (flat affect) CBC and BMP: 10/18/18 04:17 10/18/18 04:17 ABG, PT/INR, D-dimer: ABG POC ABG pH 7.426 (7.35-7.45) 10/13/18 09:41 POC ABG pCO2 37.2 (35-45) 10/13/18 09:41 POC ABG HCO3 24.4 (22-26 mml/L) 10/13/18 09:41 POC ABG Total CO2 26 (23-27mmol/L) 10/13/18 09:41 POC ABG O2 Sat 70 10/13/18 09:41 PT/INR, D-dimer PT 39.5 Sec. (12.2-14.9) H 10/18/18 04:17 INR 3.72 (0.87-1.13) H 10/18/18 04:17 Abnormal lab findings: Abnormal Labs 10/07/18 10/07/18 10/07/18 02:20 02:43 02:43 WBC RBC Hgb Hct MCH 25 L RDW 21.5 H Lymph % (Auto) [place] % (Auto) Lymph # 0.9 L [place] # Baso # Seg Neutrophils % 78.4 H Seg Neuts % (Manual) Lymphocytes % (Manual) Seg Neutrophils # Seg Neutrophils # Man Lymphocytes # (Manual) PT INR APTT Heparin Anti-Xa Level POC ABG pH POC ABG pCO2 POC ABG pO2 Sodium Potassium Chloride 108.0 H Carbon Dioxide 21 L BUN Creatinine 1.5 H Glucose 115 H POC Glucose 136 H Hemoglobin A1c Lactic Acid Calcium Phosphorus AST 51 H Alkaline Phosphatase 257 H NT-Pro-B Natriuret Pep Total Protein Albumin Crossmatch 10/07/18 10/07/18 10/07/18 02:43 04:32 05:12 WBC RBC Hgb Hct MCH RDW Lymph % (Auto) [place] % (Auto) Lymph # [place] # Baso # Seg Neutrophils % Seg Neuts % (Manual) Lymphocytes % (Manual) Seg Neutrophils # Seg Neutrophils # Man Lymphocytes # (Manual) PT 25.4 H INR 2.14 H APTT Heparin Anti-Xa Level POC ABG pH POC ABG pCO2 33.6 L POC ABG pO2 69 L Sodium Potassium Chloride Carbon Dioxide BUN Creatinine Glucose POC Glucose Hemoglobin A1c Lactic Acid 2.40 H* Calcium Phosphorus AST Alkaline Phosphatase NT-Pro-B Natriuret Pep Total Protein Albumin Crossmatch 10/07/18 10/07/18 10/07/18 06:28 18:39 20:26 WBC RBC Hgb Hct MCH RDW Lymph % (Auto) [place] % (Auto) Lymph # [place] # Baso # Seg Neutrophils % Seg Neuts % (Manual) Lymphocytes % (Manual) Seg Neutrophils # Seg Neutrophils # Man Lymphocytes # (Manual) PT INR APTT Heparin Anti-Xa Level POC ABG pH POC ABG pCO2 POC ABG pO2 Sodium Potassium Chloride Carbon Dioxide BUN Creatinine Glucose POC Glucose 164 H 440 H > 500 H Hemoglobin A1c Lactic Acid Calcium Phosphorus AST Alkaline Phosphatase NT-Pro-B Natriuret Pep Total Protein Albumin Crossmatch 10/07/18 10/07/18 10/07/18 20:28 21:53 22:08 WBC RBC Hgb Hct MCH RDW Lymph % (Auto) [place] % (Auto) Lymph # [place] # Baso # Seg Neutrophils % Seg Neuts % (Manual) Lymphocytes % (Manual) Seg Neutrophils # Seg Neutrophils # Man Lymphocytes # (Manual) PT INR APTT Heparin Anti-Xa Level POC ABG pH POC ABG pCO2 POC ABG pO2 Sodium 136 L D Potassium 6.4 H* D Chloride Carbon Dioxide 10 L D BUN 30 H Creatinine 2.0 H Glucose 544 H* POC Glucose 483 H > 500 H Hemoglobin A1c Lactic Acid Calcium 7.0 L D Phosphorus AST Alkaline Phosphatase NT-Pro-B Natriuret Pep Total Protein Albumin Crossmatch 10/07/18 10/07/18 10/07/18 22:08 22:08 22:56 WBC RBC Hgb Hct MCH RDW Lymph % (Auto) [place] % (Auto) Lymph # [place] # Baso # Seg Neutrophils % Seg Neuts % (Manual) Lymphocytes % (Manual) Seg Neutrophils # Seg Neutrophils # Man Lymphocytes # (Manual) PT INR APTT Heparin Anti-Xa Level POC ABG pH POC ABG pCO2 POC ABG pO2 Sodium Potassium Chloride Carbon Dioxide BUN Creatinine Glucose POC Glucose 462 H Hemoglobin A1c 10.2 H Lactic Acid Calcium Phosphorus 7.40 H AST Alkaline Phosphatase NT-Pro-B Natriuret Pep Total Protein Albumin Crossmatch 10/07/18 10/08/18 10/08/18 23:39 00:58 02:09 WBC RBC Hgb Hct MCH RDW Lymph % (Auto) [place] % (Auto) Lymph # [place] # Baso # Seg Neutrophils % Seg Neuts % (Manual) Lymphocytes % (Manual) Seg Neutrophils # Seg Neutrophils # Man Lymphocytes # (Manual) PT INR APTT Heparin Anti-Xa Level POC ABG pH POC ABG pCO2 POC ABG pO2 Sodium Potassium Chloride Carbon Dioxide BUN Creatinine Glucose POC Glucose 396 H 375 H 285 H Hemoglobin A1c Lactic Acid Calcium Phosphorus AST Alkaline Phosphatase NT-Pro-B Natriuret Pep Total Protein Albumin Crossmatch 10/08/18 10/08/18 10/08/18 03:10 03:33 04:05 WBC RBC Hgb Hct MCH RDW Lymph % (Auto) [place] % (Auto) Lymph # [place] # Baso # Seg Neutrophils % Seg Neuts % (Manual) Lymphocytes % (Manual) Seg Neutrophils # Seg Neutrophils # Man Lymphocytes # (Manual) PT INR APTT Heparin Anti-Xa Level POC ABG pH 7.243 L POC ABG pCO2 33.8 L POC ABG pO2 126 H Sodium Potassium 5.3 H Chloride 110.7 H Carbon Dioxide 14 L BUN 33 H Creatinine 2.2 H Glucose 193 H POC Glucose 251 H Hemoglobin A1c Lactic Acid Calcium 7.0 L Phosphorus AST Alkaline Phosphatase 155 H NT-Pro-B Natriuret Pep Total Protein 5.2 L D Albumin 2.6 L Crossmatch 10/08/18 10/08/18 10/08/18 04:05 04:05 04:09 WBC 11.8 H RBC 3.32 L Hgb 8.3 L Hct 27.5 L D MCH 25 L RDW 22.0 H Lymph % (Auto) 6.8 L [place] % (Auto) 12.0 H Lymph # 0.8 L [place] # 1.4 H Baso # Seg Neutrophils % 80.6 H Seg Neuts % (Manual) Lymphocytes % (Manual) Seg Neutrophils # 9.5 H Seg Neutrophils # Man Lymphocytes # (Manual) PT INR APTT Heparin Anti-Xa Level POC ABG pH POC ABG pCO2 POC ABG pO2 Sodium Potassium Chloride Carbon Dioxide BUN Creatinine Glucose POC Glucose 175 H Hemoglobin A1c Lactic Acid 3.70 H* Calcium Phosphorus AST Alkaline Phosphatase NT-Pro-B Natriuret Pep Total Protein Albumin Crossmatch 10/08/18 10/08/18 10/08/18 05:07 06:05 07:14 WBC RBC Hgb Hct MCH RDW Lymph % (Auto) [place] % (Auto) Lymph # [place] # Baso # Seg Neutrophils % Seg Neuts % (Manual) Lymphocytes % (Manual) Seg Neutrophils # Seg Neutrophils # Man Lymphocytes # (Manual) PT INR APTT Heparin Anti-Xa Level POC ABG pH POC ABG pCO2 POC ABG pO2 Sodium Potassium Chloride Carbon Dioxide BUN Creatinine Glucose POC Glucose 125 H 122 H 147 H Hemoglobin A1c Lactic Acid Calcium Phosphorus AST Alkaline Phosphatase NT-Pro-B Natriuret Pep Total Protein Albumin Crossmatch 10/08/18 10/08/18 10/08/18 07:22 08:09 08:47 WBC RBC Hgb Hct MCH RDW Lymph % (Auto) [place] % (Auto) Lymph # [place] # Baso # Seg Neutrophils % Seg Neuts % (Manual) Lymphocytes % (Manual) Seg Neutrophils # Seg Neutrophils # Man Lymphocytes # (Manual) PT INR APTT Heparin Anti-Xa Level POC ABG pH POC ABG pCO2 POC ABG pO2 Sodium Potassium 5.2 H Chloride 112.4 H Carbon Dioxide 17 L BUN 32 H Creatinine 2.1 H Glucose 148 H POC Glucose 134 H 148 H Hemoglobin A1c Lactic Acid Calcium 6.6 L Phosphorus AST Alkaline Phosphatase NT-Pro-B Natriuret Pep Total Protein Albumin Crossmatch 10/08/18 10/08/18 10/08/18 10:21 13:29 14:21 WBC RBC Hgb Hct MCH RDW Lymph % (Auto) [place] % (Auto) Lymph # [place] # Baso # Seg Neutrophils % Seg Neuts % (Manual) Lymphocytes % (Manual) Seg Neutrophils # Seg Neutrophils # Man Lymphocytes # (Manual) PT INR APTT Heparin Anti-Xa Level POC ABG pH POC ABG pCO2 POC ABG pO2 Sodium Potassium Chloride Carbon Dioxide BUN Creatinine Glucose POC Glucose 115 H 109 H 118 H Hemoglobin A1c Lactic Acid Calcium Phosphorus AST Alkaline Phosphatase NT-Pro-B Natriuret Pep Total Protein Albumin Crossmatch 10/08/18 10/08/18 10/08/18 15:27 17:00 17:00 WBC 11.3 H RBC 3.21 L Hgb 7.9 L Hct 25.7 L MCH 25 L RDW 21.8 H Lymph % (Auto) 8.5 L [place] % (Auto) 7.7 H Lymph # 1.0 L [place] # 0.9 H Baso # Seg Neutrophils % 82.8 H Seg Neuts % (Manual) Lymphocytes % (Manual) Seg Neutrophils # 9.3 H Seg Neutrophils # Man Lymphocytes # (Manual) PT INR APTT Heparin Anti-Xa Level POC ABG pH POC ABG pCO2 POC ABG pO2 Sodium Potassium Chloride Carbon Dioxide BUN Creatinine Glucose POC Glucose 129 H Hemoglobin A1c Lactic Acid Calcium Phosphorus AST Alkaline Phosphatase NT-Pro-B Natriuret Pep 3097 H Total Protein Albumin Crossmatch 10/08/18 10/08/18 10/08/18 17:07 17:12 18:22 WBC RBC Hgb Hct MCH RDW Lymph % (Auto) [place] % (Auto) Lymph # [place] # Baso # Seg Neutrophils % Seg Neuts % (Manual) Lymphocytes % (Manual) Seg Neutrophils # Seg Neutrophils # Man Lymphocytes # (Manual) PT INR APTT Heparin Anti-Xa Level POC ABG pH 7.337 L POC ABG pCO2 32.0 L POC ABG pO2 130 H Sodium Potassium Chloride 115.5 H Carbon Dioxide 17 L BUN 30 H Creatinine 1.9 H Glucose 103 H POC Glucose 119 H Hemoglobin A1c Lactic Acid Calcium 6.9 L Phosphorus AST Alkaline Phosphatase NT-Pro-B Natriuret Pep Total Protein Albumin Crossmatch 10/08/18 10/08/18 10/09/18 20:09 20:57 01:10 WBC RBC Hgb Hct MCH RDW Lymph % (Auto) [place] % (Auto) Lymph # [place] # Baso # Seg Neutrophils % Seg Neuts % (Manual) Lymphocytes % (Manual) Seg Neutrophils # Seg Neutrophils # Man Lymphocytes # (Manual) PT INR APTT Heparin Anti-Xa Level POC ABG pH POC ABG pCO2 POC ABG pO2 Sodium Potassium Chloride 114.3 H 113.7 H Carbon Dioxide 15 L 14 L BUN 29 H 29 H Creatinine 2.1 H 2.0 H Glucose 132 H 39 L* POC Glucose 150 H Hemoglobin A1c Lactic Acid Calcium 6.7 L 6.9 L Phosphorus AST Alkaline Phosphatase NT-Pro-B Natriuret Pep Total Protein Albumin Crossmatch 10/09/18 10/09/18 10/09/18 01:10 01:43 03:20 WBC RBC Hgb Hct MCH RDW Lymph % (Auto) [place] % (Auto) Lymph # [place] # Baso # Seg Neutrophils % Seg Neuts % (Manual) Lymphocytes % (Manual) Seg Neutrophils # Seg Neutrophils # Man Lymphocytes # (Manual) PT INR APTT Heparin Anti-Xa Level POC ABG pH POC ABG pCO2 POC ABG pO2 Sodium Potassium Chloride Carbon Dioxide BUN Creatinine Glucose POC Glucose < 40 L < 40 L Hemoglobin A1c Lactic Acid Calcium Phosphorus AST Alkaline Phosphatase NT-Pro-B Natriuret Pep 2865 H Total Protein Albumin Crossmatch 10/09/18 10/09/18 10/09/18 04:23 05:03 05:25 WBC RBC Hgb Hct MCH RDW Lymph % (Auto) [place] % (Auto) Lymph # [place] # Baso # Seg Neutrophils % Seg Neuts % (Manual) Lymphocytes % (Manual) Seg Neutrophils # Seg Neutrophils # Man Lymphocytes # (Manual) PT INR APTT Heparin Anti-Xa Level POC ABG pH POC ABG pCO2 30.6 L 32.3 L POC ABG pO2 118 H Sodium Potassium Chloride Carbon Dioxide BUN Creatinine Glucose POC Glucose 148 H Hemoglobin A1c Lactic Acid Calcium Phosphorus AST Alkaline Phosphatase NT-Pro-B Natriuret Pep Total Protein Albumin Crossmatch 10/09/18 10/09/18 10/09/18 06:00 08:34 09:58 WBC RBC Hgb Hct MCH RDW Lymph % (Auto) [place] % (Auto) Lymph # [place] # Baso # Seg Neutrophils % Seg Neuts % (Manual) Lymphocytes % (Manual) Seg Neutrophils # Seg Neutrophils # Man Lymphocytes # (Manual) PT INR APTT Heparin Anti-Xa Level POC ABG pH POC ABG pCO2 POC ABG pO2 Sodium Potassium Chloride Carbon Dioxide BUN Creatinine Glucose POC Glucose 173 H 196 H 183 H Hemoglobin A1c Lactic Acid Calcium Phosphorus AST Alkaline Phosphatase NT-Pro-B Natriuret Pep Total Protein Albumin Crossmatch 10/09/18 10/09/18 10/09/18 12:25 12:46 18:16 WBC RBC Hgb Hct MCH RDW Lymph % (Auto) [place] % (Auto) Lymph # [place] # Baso # Seg Neutrophils % Seg Neuts % (Manual) Lymphocytes % (Manual) Seg Neutrophils # Seg Neutrophils # Man Lymphocytes # (Manual) PT INR APTT Heparin Anti-Xa Level POC ABG pH POC ABG pCO2 POC ABG pO2 Sodium Potassium Chloride 110.3 H Carbon Dioxide 16 L BUN 24 H Creatinine 1.8 H Glucose 207 H POC Glucose 208 H 177 H Hemoglobin A1c Lactic Acid Calcium 6.9 L Phosphorus AST Alkaline Phosphatase NT-Pro-B Natriuret Pep Total Protein Albumin Crossmatch 10/09/18 10/10/18 10/10/18 21:11 00:11 05:41 WBC RBC Hgb Hct MCH RDW Lymph % (Auto) [place] % (Auto) Lymph # [place] # Baso # Seg Neutrophils % Seg Neuts % (Manual) Lymphocytes % (Manual) Seg Neutrophils # Seg Neutrophils # Man Lymphocytes # (Manual) PT INR APTT Heparin Anti-Xa Level POC ABG pH POC ABG pCO2 POC ABG pO2 Sodium Potassium Chloride Carbon Dioxide BUN Creatinine Glucose POC Glucose 124 H 156 H 42 L Hemoglobin A1c Lactic Acid Calcium Phosphorus AST Alkaline Phosphatase NT-Pro-B Natriuret Pep Total Protein Albumin Crossmatch 10/10/18 10/10/18 10/10/18 05:45 07:28 12:07 WBC RBC Hgb Hct MCH RDW Lymph % (Auto) [place] % (Auto) Lymph # [place] # Baso # Seg Neutrophils % Seg Neuts % (Manual) Lymphocytes % (Manual) Seg Neutrophils # Seg Neutrophils # Man Lymphocytes # (Manual) PT INR APTT Heparin Anti-Xa Level POC ABG pH POC ABG pCO2 POC ABG pO2 Sodium 146 H D Potassium Chloride 111.2 H Carbon Dioxide BUN 21 H Creatinine 1.8 H Glucose 44 L POC Glucose 114 H 49 L Hemoglobin A1c Lactic Acid Calcium 7.4 L Phosphorus AST Alkaline Phosphatase NT-Pro-B Natriuret Pep Total Protein Albumin Crossmatch 10/10/18 10/10/18 10/10/18 12:37 18:02 20:47 WBC RBC Hgb Hct MCH RDW Lymph % (Auto) [place] % (Auto) Lymph # [place] # Baso # Seg Neutrophils % Seg Neuts % (Manual) Lymphocytes % (Manual) Seg Neutrophils # Seg Neutrophils # Man Lymphocytes # (Manual) PT INR APTT Heparin Anti-Xa Level POC ABG pH POC ABG pCO2 POC ABG pO2 Sodium Potassium Chloride Carbon Dioxide BUN Creatinine Glucose POC Glucose 142 H 49 L 162 H Hemoglobin A1c Lactic Acid Calcium Phosphorus AST Alkaline Phosphatase NT-Pro-B Natriuret Pep Total Protein Albumin Crossmatch 10/10/18 10/10/18 10/10/18 21:45 22:19 23:50 WBC RBC Hgb Hct MCH RDW Lymph % (Auto) [place] % (Auto) Lymph # [place] # Baso # Seg Neutrophils % Seg Neuts % (Manual) Lymphocytes % (Manual) Seg Neutrophils # Seg Neutrophils # Man Lymphocytes # (Manual) PT INR APTT Heparin Anti-Xa Level POC ABG pH 7.334 L POC ABG pCO2 47.0 H POC ABG pO2 53 L 79 L Sodium Potassium Chloride Carbon Dioxide BUN Creatinine Glucose POC Glucose 185 H Hemoglobin A1c Lactic Acid Calcium Phosphorus AST Alkaline Phosphatase NT-Pro-B Natriuret Pep Total Protein Albumin Crossmatch 10/11/18 10/11/18 10/11/18 05:00 06:41 07:17 WBC RBC Hgb Hct MCH RDW Lymph % (Auto) [place] % (Auto) Lymph # [place] # Baso # Seg Neutrophils % Seg Neuts % (Manual) Lymphocytes % (Manual) Seg Neutrophils # Seg Neutrophils # Man Lymphocytes # (Manual) PT INR APTT Heparin Anti-Xa Level POC ABG pH POC ABG pCO2 POC ABG pO2 Sodium Potassium Chloride Carbon Dioxide BUN Creatinine 1.7 H Glucose 43 L POC Glucose 48 L 129 H Hemoglobin A1c Lactic Acid Calcium 7.7 L Phosphorus AST Alkaline Phosphatase NT-Pro-B Natriuret Pep Total Protein Albumin Crossmatch 10/11/18 10/11/18 10/11/18 11:14 13:32 14:25 WBC RBC 3.32 L Hgb 8.2 L Hct 26.4 L MCH 25 L RDW 21.6 H Lymph % (Auto) [place] % (Auto) Lymph # [place] # Baso # Seg Neutrophils % Seg Neuts % (Manual) Lymphocytes % (Manual) Seg Neutrophils # Seg Neutrophils # Man Lymphocytes # (Manual) PT 21.7 H INR 1.76 H APTT 50.5 H Heparin Anti-Xa Level POC ABG pH POC ABG pCO2 POC ABG pO2 Sodium Potassium Chloride Carbon Dioxide BUN Creatinine Glucose POC Glucose 138 H Hemoglobin A1c Lactic Acid Calcium Phosphorus AST Alkaline Phosphatase NT-Pro-B Natriuret Pep Total Protein Albumin Crossmatch 10/11/18 10/11/18 10/11/18 14:25 15:41 17:31 WBC RBC Hgb Hct MCH RDW Lymph % (Auto) [place] % (Auto) Lymph # [place] # Baso # Seg Neutrophils % Seg Neuts % (Manual) Lymphocytes % (Manual) Seg Neutrophils # Seg Neutrophils # Man Lymphocytes # (Manual) PT 20.6 H INR 1.65 H APTT 54.9 H Heparin Anti-Xa Level POC ABG pH POC ABG pCO2 POC ABG pO2 53 L Sodium Potassium Chloride Carbon Dioxide BUN Creatinine Glucose POC Glucose 133 H Hemoglobin A1c Lactic Acid Calcium Phosphorus AST Alkaline Phosphatase NT-Pro-B Natriuret Pep Total Protein Albumin Crossmatch 10/12/18 10/12/18 10/12/18 00:30 03:56 04:25 WBC RBC Hgb Hct MCH RDW Lymph % (Auto) [place] % (Auto) Lymph # [place] # Baso # Seg Neutrophils % Seg Neuts % (Manual) Lymphocytes % (Manual) Seg Neutrophils # Seg Neutrophils # Man Lymphocytes # (Manual) PT INR APTT Heparin Anti-Xa Level POC ABG pH 7.514 H POC ABG pCO2 31.2 L POC ABG pO2 Sodium Potassium Chloride Carbon Dioxide BUN Creatinine 1.6 H Glucose 287 H POC Glucose 353 H Hemoglobin A1c Lactic Acid Calcium 8.0 L Phosphorus AST Alkaline Phosphatase NT-Pro-B Natriuret Pep Total Protein Albumin Crossmatch 10/12/18 10/12/18 10/12/18 04:49 12:13 17:53 WBC RBC Hgb Hct MCH RDW Lymph % (Auto) [place] % (Auto) Lymph # [place] # Baso # Seg Neutrophils % Seg Neuts % (Manual) Lymphocytes % (Manual) Seg Neutrophils # Seg Neutrophils # Man Lymphocytes # (Manual) PT INR APTT Heparin Anti-Xa Level POC ABG pH POC ABG pCO2 POC ABG pO2 Sodium Potassium Chloride Carbon Dioxide BUN Creatinine Glucose POC Glucose 297 H 290 H 211 H Hemoglobin A1c Lactic Acid Calcium Phosphorus AST Alkaline Phosphatase NT-Pro-B Natriuret Pep Total Protein Albumin Crossmatch 10/12/18 10/12/18 10/13/18 18:57 21:35 04:50 WBC 11.8 H RBC 3.08 L Hgb 7.4 L Hct 24.2 L MCH 24 L RDW 21.5 H Lymph % (Auto) [place] % (Auto) Lymph # [place] # Baso # Seg Neutrophils % Seg Neuts % (Manual) Lymphocytes % (Manual) Seg Neutrophils # Seg Neutrophils # Man Lymphocytes # (Manual) PT INR APTT Heparin Anti-Xa Level 1.74 H POC ABG pH 7.497 H POC ABG pCO2 33.2 L POC ABG pO2 71 L Sodium Potassium Chloride Carbon Dioxide BUN Creatinine Glucose POC Glucose Hemoglobin A1c Lactic Acid Calcium Phosphorus AST Alkaline Phosphatase NT-Pro-B Natriuret Pep Total Protein Albumin Crossmatch 10/13/18 10/13/18 10/13/18 05:25 05:25 05:37 WBC 12.1 H RBC 3.02 L Hgb 7.4 L Hct 23.7 L MCH 25 L RDW 21.0 H Lymph % (Auto) 9.6 L [place] % (Auto) 10.0 H Lymph # [place] # 1.2 H Baso # Seg Neutrophils % 76.2 H Seg Neuts % (Manual) Lymphocytes % (Manual) Seg Neutrophils # 9.2 H Seg Neutrophils # Man Lymphocytes # (Manual) PT INR APTT Heparin Anti-Xa Level POC ABG pH POC ABG pCO2 POC ABG pO2 Sodium Potassium Chloride Carbon Dioxide BUN Creatinine 1.6 H Glucose 175 H POC Glucose 165 H Hemoglobin A1c Lactic Acid Calcium 8.3 L Phosphorus AST Alkaline Phosphatase NT-Pro-B Natriuret Pep Total Protein Albumin Crossmatch 10/13/18 10/13/18 10/13/18 06:45 11:12 17:19 WBC RBC Hgb Hct MCH RDW Lymph % (Auto) [place] % (Auto) Lymph # [place] # Baso # Seg Neutrophils % Seg Neuts % (Manual) Lymphocytes % (Manual) Seg Neutrophils # Seg Neutrophils # Man Lymphocytes # (Manual) PT 17.4 H INR 1.34 H APTT Heparin Anti-Xa Level POC ABG pH POC ABG pCO2 POC ABG pO2 Sodium Potassium Chloride Carbon Dioxide BUN Creatinine Glucose POC Glucose 223 H 129 H Hemoglobin A1c Lactic Acid Calcium Phosphorus AST Alkaline Phosphatase NT-Pro-B Natriuret Pep Total Protein Albumin Crossmatch 10/13/18 10/14/18 10/14/18 23:39 05:01 06:14 WBC RBC Hgb Hct MCH RDW Lymph % (Auto) [place] % (Auto) Lymph # [place] # Baso # Seg Neutrophils % Seg Neuts % (Manual) Lymphocytes % (Manual) Seg Neutrophils # Seg Neutrophils # Man Lymphocytes # (Manual) PT INR APTT Heparin Anti-Xa Level POC ABG pH POC ABG pCO2 POC ABG pO2 Sodium Potassium Chloride Carbon Dioxide BUN Creatinine 1.5 H Glucose 264 H POC Glucose 171 H 226 H Hemoglobin A1c Lactic Acid Calcium 8.0 L Phosphorus AST Alkaline Phosphatase NT-Pro-B Natriuret Pep Total Protein Albumin Crossmatch 10/14/18 10/14/18 10/14/18 06:14 12:24 19:33 WBC RBC Hgb Hct MCH RDW Lymph % (Auto) [place] % (Auto) Lymph # [place] # Baso # Seg Neutrophils % Seg Neuts % (Manual) Lymphocytes % (Manual) Seg Neutrophils # Seg Neutrophils # Man Lymphocytes # (Manual) PT 22.1 H INR 1.80 H APTT Heparin Anti-Xa Level POC ABG pH POC ABG pCO2 POC ABG pO2 Sodium Potassium Chloride Carbon Dioxide BUN Creatinine Glucose POC Glucose 403 H 164 H Hemoglobin A1c Lactic Acid Calcium Phosphorus AST Alkaline Phosphatase NT-Pro-B Natriuret Pep Total Protein Albumin Crossmatch 10/15/18 10/15/18 10/15/18 00:29 06:03 07:00 WBC RBC Hgb Hct MCH RDW Lymph % (Auto) [place] % (Auto) Lymph # [place] # Baso # Seg Neutrophils % Seg Neuts % (Manual) Lymphocytes % (Manual) Seg Neutrophils # Seg Neutrophils # Man Lymphocytes # (Manual) PT INR APTT Heparin Anti-Xa Level POC ABG pH POC ABG pCO2 POC ABG pO2 Sodium Potassium Chloride Carbon Dioxide BUN 20 H Creatinine 1.7 H Glucose 308 H POC Glucose 237 H 282 H Hemoglobin A1c Lactic Acid Calcium 7.6 L Phosphorus AST Alkaline Phosphatase NT-Pro-B Natriuret Pep Total Protein Albumin Crossmatch 10/15/18 10/15/18 10/15/18 07:00 08:03 10:27 WBC RBC Hgb 5.8 L* Hct 18.5 L* MCH RDW Lymph % (Auto) [place] % (Auto) Lymph # [place] # Baso # Seg Neutrophils % Seg Neuts % (Manual) Lymphocytes % (Manual) Seg Neutrophils # Seg Neutrophils # Man Lymphocytes # (Manual) PT 46.1 H INR 4.52 H APTT Heparin Anti-Xa Level 0.25 L POC ABG pH POC ABG pCO2 POC ABG pO2 Sodium Potassium Chloride Carbon Dioxide BUN Creatinine Glucose POC Glucose Hemoglobin A1c Lactic Acid Calcium Phosphorus AST Alkaline Phosphatase NT-Pro-B Natriuret Pep Total Protein Albumin Crossmatch See Detail 10/15/18 10/15/18 10/16/18 14:03 15:30 10:18 WBC RBC Hgb Hct MCH RDW Lymph % (Auto) [place] % (Auto) Lymph # [place] # Baso # Seg Neutrophils % Seg Neuts % (Manual) Lymphocytes % (Manual) Seg Neutrophils # Seg Neutrophils # Man Lymphocytes # (Manual) PT 53.8 H INR 5.48 H* APTT Heparin Anti-Xa Level POC ABG pH POC ABG pCO2 POC ABG pO2 Sodium Potassium Chloride Carbon Dioxide BUN Creatinine Glucose POC Glucose 336 H 259 H Hemoglobin A1c Lactic Acid Calcium Phosphorus AST Alkaline Phosphatase NT-Pro-B Natriuret Pep Total Protein Albumin Crossmatch 10/16/18 10/16/18 10/16/18 10:18 10:18 13:03 WBC 14.8 H RBC 3.03 L Hgb 8.2 L Hct 24.9 L D MCH 27 L RDW 19.2 H Lymph % (Auto) 5.7 L [place] % (Auto) Lymph # 0.8 L [place] # 1.1 H Baso # 0.2 H Seg Neutrophils % 84.3 H Seg Neuts % (Manual) Lymphocytes % (Manual) Seg Neutrophils # 12.5 H Seg Neutrophils # Man Lymphocytes # (Manual) PT INR APTT Heparin Anti-Xa Level POC ABG pH POC ABG pCO2 POC ABG pO2 Sodium Potassium Chloride Carbon Dioxide 20 L BUN 21 H Creatinine 1.5 H Glucose 326 H POC Glucose 329 H Hemoglobin A1c Lactic Acid Calcium 7.8 L Phosphorus AST Alkaline Phosphatase NT-Pro-B Natriuret Pep Total Protein Albumin Crossmatch 10/16/18 10/17/18 10/17/18 13:27 00:35 05:00 WBC RBC Hgb Hct MCH RDW Lymph % (Auto) [place] % (Auto) Lymph # [place] # Baso # Seg Neutrophils % Seg Neuts % (Manual) Lymphocytes % (Manual) Seg Neutrophils # Seg Neutrophils # Man Lymphocytes # (Manual) PT 55.4 H 60.2 H INR 5.68 H* 6.30 H* APTT Heparin Anti-Xa Level POC ABG pH POC ABG pCO2 POC ABG pO2 Sodium Potassium Chloride Carbon Dioxide BUN Creatinine Glucose POC Glucose 407 H Hemoglobin A1c Lactic Acid Calcium Phosphorus AST Alkaline Phosphatase NT-Pro-B Natriuret Pep Total Protein Albumin Crossmatch 10/17/18 10/17/18 10/17/18 05:00 05:00 05:29 WBC 11.6 H RBC 2.99 L Hgb 8.0 L Hct 24.2 L MCH 27 L RDW 19.2 H Lymph % (Auto) [place] % (Auto) Lymph # [place] # Baso # Seg Neutrophils % Seg Neuts % (Manual) 87.0 H Lymphocytes % (Manual) 9.0 L Seg Neutrophils # Seg Neutrophils # Man 10.1 H Lymphocytes # (Manual) 1.0 L PT INR APTT Heparin Anti-Xa Level POC ABG pH POC ABG pCO2 POC ABG pO2 Sodium Potassium 3.4 L D Chloride Carbon Dioxide BUN Creatinine 1.4 H Glucose 170 H POC Glucose 156 H Hemoglobin A1c Lactic Acid Calcium 7.6 L Phosphorus AST Alkaline Phosphatase NT-Pro-B Natriuret Pep Total Protein 5.4 L Albumin 2.2 L Crossmatch 10/17/18 10/17/18 10/18/18 11:59 17:06 00:21 WBC RBC Hgb Hct MCH RDW Lymph % (Auto) [place] % (Auto) Lymph # [place] # Baso # Seg Neutrophils % Seg Neuts % (Manual) Lymphocytes % (Manual) Seg Neutrophils # Seg Neutrophils # Man Lymphocytes # (Manual) PT INR APTT Heparin Anti-Xa Level POC ABG pH POC ABG pCO2 POC ABG pO2 Sodium Potassium Chloride Carbon Dioxide BUN Creatinine Glucose POC Glucose 389 H 151 H 355 H Hemoglobin A1c Lactic Acid Calcium Phosphorus AST Alkaline Phosphatase NT-Pro-B Natriuret Pep Total Protein Albumin Crossmatch 10/18/18 10/18/18 10/18/18 04:17 04:17 04:17 WBC RBC 3.01 L Hgb 8.1 L Hct 24.6 L MCH 27 L RDW 19.7 H Lymph % (Auto) 12.7 L [place] % (Auto) Lymph # [place] # Baso # Seg Neutrophils % 76.3 H Seg Neuts % (Manual) Lymphocytes % (Manual) Seg Neutrophils # 8.2 H Seg Neutrophils # Man Lymphocytes # (Manual) PT 39.5 H INR 3.72 H APTT Heparin Anti-Xa Level POC ABG pH POC ABG pCO2 POC ABG pO2 Sodium Potassium 3.5 L Chloride Carbon Dioxide BUN Creatinine 1.5 H Glucose 115 H POC Glucose Hemoglobin A1c Lactic Acid Calcium 7.4 L Phosphorus AST Alkaline Phosphatase NT-Pro-B Natriuret Pep Total Protein Albumin Crossmatch 10/18/18 06:45 WBC RBC Hgb Hct MCH RDW Lymph % (Auto) [place] % (Auto) Lymph # [place] # Baso # Seg Neutrophils % Seg Neuts % (Manual) Lymphocytes % (Manual) Seg Neutrophils # Seg Neutrophils # Man Lymphocytes # (Manual) PT INR APTT Heparin Anti-Xa Level POC ABG pH POC ABG pCO2 POC ABG pO2 Sodium Potassium Chloride Carbon Dioxide BUN Creatinine Glucose POC Glucose 170 H Hemoglobin A1c Lactic Acid Calcium Phosphorus AST Alkaline Phosphatase NT-Pro-B Natriuret Pep Total Protein Albumin Crossmatch Chest x-ray: report reviewed (Bilateral patchy airspace opacities, more on left side.), image reviewed Allied health notes reviewed: nursing
--- NOTE | 2018-10-18 14:57 | Gastroenterology Progress Note ---
<BRIGIDA JUAREZ - Last Filed: 10/18/18 15:00> Assessment and Plan 1.acute on chronic anemia -H/H 8.124.6--stable -continue to monitor H/H and transfuse as needed -no active sign of bleeding overnight or this am- no hemorrhage on CT -last EGD 08/05/2018 showed gastritis with mild self-limited oozing of blood but no high risk bleeding lesions -etiology unclear-likely multifactorial -will consider repeat EGD/colonoscopy based on progress once INR (3.72 today) trended down and cleared by pulmonary; cardiology input noted and appreciated -anticoagulation currently on hold -continue PPI and supportive care -electrolyte management per primary team -will follow 2.sepsis/PNA 3.acute respiratory failure 5.acute on chronic systolic CHF 6.DM 7.ASHELY upon CKD 8.AMS 9.CAD (s/p CABG) 10.H/O mitral valve replacement with mechanical valve Subjective Date of service: 10/18/18 Principal diagnosis: anemia/GI bleed? Interval history: No acute distress or active signs of bleeding. Objective - Constitutional Vitals: Temp Pulse Resp BP Pulse Ox 99.1 F 97 H 18 114/71 96 10/18/18 11:49 10/18/18 13:45 10/18/18 11:49 10/18/18 13:45 10/18/18 11:49 General appearance: no acute distress - Respiratory Respiratory: bilateral: diminished - Cardiovascular Rhythm: regular - Gastrointestinal General gastrointestinal: Present: soft, non-tender, non-distended, normal bowel sounds - Labs CBC & Chem 7: 10/18/18 04:17 10/18/18 04:17 Labs: Laboratory Results - last 24 hr 10/17/18 10/18/18 10/18/18 17:06 00:21 04:17 WBC RBC Hgb Hct MCV MCH MCHC RDW Plt Count Lymph % (Auto) [place] % (Auto) Eos % (Auto) Baso % (Auto) Lymph # [place] # Eos # Baso # Seg Neutrophils % Seg Neutrophils # PT 39.5 H INR 3.72 H Sodium Potassium Chloride Carbon Dioxide Anion Gap BUN Creatinine Estimated GFR BUN/Creatinine Ratio Glucose POC Glucose 151 H 355 H Calcium 10/18/18 10/18/18 10/18/18 04:17 04:17 06:45 WBC 10.8 RBC 3.01 L Hgb 8.1 L Hct 24.6 L MCV 82 MCH 27 L MCHC 33 RDW 19.7 H Plt Count 298 Lymph % (Auto) 12.7 L [place] % (Auto) 6.9 Eos % (Auto) 3.5 Baso % (Auto) 0.6 Lymph # 1.4 [place] # 0.7 Eos # 0.4 Baso # 0.1 Seg Neutrophils % 76.3 H Seg Neutrophils # 8.2 H PT INR Sodium 141 Potassium 3.5 L Chloride 102.5 Carbon Dioxide 28 Anion Gap 14 BUN 16 Creatinine 1.5 H Estimated GFR 45 BUN/Creatinine Ratio 11 Glucose 115 H POC Glucose 170 H Calcium 7.4 L 10/18/18 13:39 WBC RBC Hgb Hct MCV MCH MCHC RDW Plt Count Lymph % (Auto) [place] % (Auto) Eos % (Auto) Baso % (Auto) Lymph # [place] # Eos # Baso # Seg Neutrophils % Seg Neutrophils # PT INR Sodium Potassium Chloride Carbon Dioxide Anion Gap BUN Creatinine Estimated GFR BUN/Creatinine Ratio Glucose POC Glucose 415 H Calcium <EDWIGE CAMERON - Last Filed: 10/18/18 22:57> Assessment and Plan Patient seen and examined. I have reviewed the advanced practitioner's evaluation, assessment, and plan, and agree with them. 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 Will need pulm clearance for this, and to allow the INR to trend down to about 1.5 or below for the procedure. - Patient Problems (1) Acute respiratory failure Current Visit: Yes Status: Acute (2) Heart failure with reduced ejection fraction Current Visit: Yes Status: Acute (3) Anemia Current Visit: Yes Status: Chronic (4) History of GI bleed Current Visit: Yes Status: Chronic Objective - Constitutional Vitals: Temp Pulse Resp BP Pulse Ox 98.7 F 100 H 18 117/74 99 10/18/18 22:37 10/18/18 22:37 10/18/18 22:37 10/18/18 22:37 10/18/18 22:37 - Labs CBC & Chem 7: 10/18/18 04:17 10/18/18 20:20 Labs: Laboratory Results - last 24 hr 10/18/18 10/18/18 10/18/18 00:21 04:17 04:17 WBC 10.8 RBC 3.01 L Hgb 8.1 L Hct 24.6 L MCV 82 MCH 27 L MCHC 33 RDW 19.7 H Plt Count 298 Lymph % (Auto) 12.7 L [place] % (Auto) 6.9 Eos % (Auto) 3.5 Baso % (Auto) 0.6 Lymph # 1.4 [place] # 0.7 Eos # 0.4 Baso # 0.1 Seg Neutrophils % 76.3 H Seg Neutrophils # 8.2 H PT 39.5 H INR 3.72 H Sodium Potassium Chloride Carbon Dioxide Anion Gap BUN Creatinine Estimated GFR BUN/Creatinine Ratio Glucose POC Glucose 355 H Calcium Magnesium 10/18/18 10/18/18 10/18/18 04:17 06:45 13:39 WBC RBC Hgb Hct MCV MCH MCHC RDW Plt Count Lymph % (Auto) [place] % (Auto) Eos % (Auto) Baso % (Auto) Lymph # [place] # Eos # Baso # Seg Neutrophils % Seg Neutrophils # PT INR Sodium 141 Potassium 3.5 L Chloride 102.5 Carbon Dioxide 28 Anion Gap 14 BUN 16 Creatinine 1.5 H Estimated GFR 45 BUN/Creatinine Ratio 11 Glucose 115 H POC Glucose 170 H 415 H Calcium 7.4 L Magnesium 10/18/18 10/18/18 17:12 20:20 WBC RBC Hgb Hct MCV MCH MCHC RDW Plt Count Lymph % (Auto) [place] % (Auto) Eos % (Auto) Baso % (Auto) Lymph # [place] # Eos # Baso # Seg Neutrophils % Seg Neutrophils # PT INR Sodium Potassium 4.2 Chloride Carbon Dioxide Anion Gap BUN Creatinine Estimated GFR BUN/Creatinine Ratio Glucose POC Glucose 377 H Calcium Magnesium 1.70
[2018-10-18] MEDS: TYLENOL PO PRN (18:40)
[2018-10-19] MEDS: HumaLOG SUB-Q SCH ×7 (01:29→18:29)
[2018-10-19] MEDS: LASIX IV SCH (05:56)
[2018-10-19 06:10] LABS: Basophils # (Auto) 0.1 K/mm3 (0.0-0.1); Eosinophils # (Auto) 0.3 K/mm3 (0.0-0.4); Eosinophils % (Auto) 3.2 % (0.0-4.3); Hematocrit 23.2 % (30.3-42.9); Hemoglobin 7.7 gm/dl (10.1-14.3); Lymphocytes # (Auto) 1.1 K/mm3 (1.2-5.4); Mean Corpuscular HGB Conc 33 % (30-34); Mean Corpuscular Volume 82 fl (79-97); Monocytes # (Auto) 0.7 K/mm3 (0.0-0.8); Monocytes % (Auto) 6.3 % (0.0-7.3); Platelet Count 320 K/mm3 (140-440); Red Blood Count 2.84 M/mm3 (3.65-5.03); Red Cell Distribution Width 19.8 % (13.2-15.2)
[2018-10-19 06:22] LABS: Calcium 7.7 mg/dL (8.4-10.2)
[2018-10-19 07:29] LABS: INR 1.4 (0.87-1.13)
[2018-10-19] MEDS: LOPRESSOR PO SCH ×3 (08:52→21:14)
--- NOTE | 2018-10-19 09:41 | Gastroenterology Progress Note ---
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, recommend evaluation with EGD/colon (will schedule for tomorrow; spoke with cardiology and patient will be bridged with heparin drip; awaiting pulmonary input/clearance for proceeding with procedures) -clear liquid diet today, then NPO after MN -Hold heparin drip at 0500 in am; repeat INR in am prior to procedure -continue PPI and supportive care -electrolyte management per primary team -will follow 2.sepsis/PNA 3.acute respiratory failure 5.acute on chronic systolic CHF 6.DM 7.ASHELY upon CKD 8.AMS 9.CAD (s/p CABG) 10.H/O mitral valve replacement with mechanical valve Subjective Date of service: 10/19/18 Principal diagnosis: anemia/GI bleed? Interval history: No acute distress or active signs of bleeding overnight or this am, however H/H continues to trend down. Denies abd pain or N/V Objective - Constitutional Vitals: Temp Pulse Resp BP Pulse Ox 98.7 F 96 H 20 132/77 95 10/19/18 05:28 10/19/18 08:52 10/19/18 05:28 10/19/18 08:52 10/19/18 05:28 General appearance: no acute distress - Respiratory Respiratory: bilateral: diminished - Cardiovascular Rhythm: regular - Gastrointestinal General gastrointestinal: Present: soft, non-tender, non-distended, normal bowel sounds - Neurologic Neurological: alert and oriented x3 - Labs CBC & Chem 7: 10/19/18 05:52 10/19/18 05:52 Labs: Laboratory Results - last 24 hr 10/18/18 10/18/18 10/18/18 13:39 17:12 20:20 WBC RBC Hgb Hct MCV MCH MCHC RDW Plt Count Lymph % (Auto) [place] % (Auto) Eos % (Auto) Baso % (Auto) Lymph # [place] # Eos # Baso # Seg Neutrophils % Seg Neutrophils # PT INR Sodium Potassium 4.2 Chloride Carbon Dioxide Anion Gap BUN Creatinine Estimated GFR BUN/Creatinine Ratio Glucose POC Glucose 415 H 377 H Calcium Magnesium 1.70 10/19/18 10/19/18 10/19/18 00:48 05:35 05:52 WBC 10.4 RBC 2.84 L Hgb 7.7 L Hct 23.2 L MCV 82 MCH 27 L MCHC 33 RDW 19.8 H Plt Count 320 Lymph % (Auto) 11.0 L [place] % (Auto) 6.3 Eos % (Auto) 3.2 Baso % (Auto) 1.0 Lymph # 1.1 L [place] # 0.7 Eos # 0.3 Baso # 0.1 Seg Neutrophils % 78.5 H Seg Neutrophils # 8.1 H PT INR Sodium Potassium Chloride Carbon Dioxide Anion Gap BUN Creatinine Estimated GFR BUN/Creatinine Ratio Glucose POC Glucose 308 H 116 H Calcium Magnesium 10/19/18 10/19/18 05:52 07:12 WBC RBC Hgb Hct MCV MCH MCHC RDW Plt Count Lymph % (Auto) [place] % (Auto) Eos % (Auto) Baso % (Auto) Lymph # [place] # Eos # Baso # Seg Neutrophils % Seg Neutrophils # PT 18.1 H INR 1.40 H Sodium 141 Potassium 3.6 Chloride 102.4 Carbon Dioxide 29 Anion Gap 13 BUN 21 H Creatinine 1.6 H Estimated GFR 41 BUN/Creatinine Ratio 13 Glucose 128 H POC Glucose Calcium 7.7 L Magnesium <EDWIGE CAMERON - Last Filed: 10/19/18 23:13> Assessment and Plan Patient seen and examined. I have reviewed the advanced practitioner's evaluation, assessment, and plan, and agree with them. I note the following additions: patient without overt bleeding but needs correction AC yet has been having recurrent GI bleed, therefore plan for enteroscopy and colonoscopy tomorrow with bridging with heparin as detailed above - Patient Problems (1) Acute respiratory failure Current Visit: Yes Status: Resolved (2) Heart failure with reduced ejection fraction Current Visit: Yes Status: Acute (3) Anemia Current Visit: Yes Status: Chronic (4) History of GI bleed Current Visit: Yes Status: Chronic Objective - Constitutional Vitals: Temp Pulse Resp BP Pulse Ox 99.9 F H 105 H 18 123/76 98 10/19/18 21:11 10/19/18 21:14 10/19/18 21:11 10/19/18 21:14 10/19/18 21:11 - Labs CBC & Chem 7: 10/19/18 09:41 10/19/18 05:52 Labs: Laboratory Results - last 24 hr 10/19/18 10/19/18 10/19/18 00:48 05:35 05:52 WBC 10.4 RBC 2.84 L Hgb 7.7 L Hct 23.2 L MCV 82 MCH 27 L MCHC 33 RDW 19.8 H Plt Count 320 Lymph % (Auto) 11.0 L [place] % (Auto) 6.3 Eos % (Auto) 3.2 Baso % (Auto) 1.0 Lymph # 1.1 L [place] # 0.7 Eos # 0.3 Baso # 0.1 Seg Neutrophils % 78.5 H Seg Neutrophils # 8.1 H PT INR APTT Heparin Anti-Xa Level POC ABG pH POC ABG pCO2 POC ABG pO2 POC ABG HCO3 POC ABG Total CO2 POC ABG O2 Sat POC ABG Base Excess FiO2 Sodium Potassium Chloride Carbon Dioxide Anion Gap BUN Creatinine Estimated GFR BUN/Creatinine Ratio Glucose POC Glucose 308 H 116 H Calcium 10/19/18 10/19/18 10/19/18 05:52 07:12 09:41 WBC RBC Hgb 8.1 L Hct 24.6 L MCV MCH MCHC RDW Plt Count 322 Lymph % (Auto) [place] % (Auto) Eos % (Auto) Baso % (Auto) Lymph # [place] # Eos # Baso # Seg Neutrophils % Seg Neutrophils # PT 18.1 H INR 1.40 H APTT Heparin Anti-Xa Level POC ABG pH POC ABG pCO2 POC ABG pO2 POC ABG HCO3 POC ABG Total CO2 POC ABG O2 Sat POC ABG Base Excess FiO2 Sodium 141 Potassium 3.6 Chloride 102.4 Carbon Dioxide 29 Anion Gap 13 BUN 21 H Creatinine 1.6 H Estimated GFR 41 BUN/Creatinine Ratio 13 Glucose 128 H POC Glucose Calcium 7.7 L 10/19/18 10/19/18 10/19/18 09:41 11:46 16:12 WBC RBC Hgb Hct MCV MCH MCHC RDW Plt Count Lymph % (Auto) [place] % (Auto) Eos % (Auto) Baso % (Auto) Lymph # [place] # Eos # Baso # Seg Neutrophils % Seg Neutrophils # PT 17.7 H INR 1.36 H APTT 32.9 Heparin Anti-Xa Level POC ABG pH POC ABG pCO2 POC ABG pO2 POC ABG HCO3 POC ABG Total CO2 POC ABG O2 Sat POC ABG Base Excess FiO2 Sodium Potassium Chloride Carbon Dioxide Anion Gap BUN Creatinine Estimated GFR BUN/Creatinine Ratio Glucose POC Glucose 212 H 260 H Calcium 10/19/18 10/19/18 10/19/18 19:56 22:09 Unknown WBC RBC Hgb Hct MCV MCH MCHC RDW Plt Count Lymph % (Auto) [place] % (Auto) Eos % (Auto) Baso % (Auto) Lymph # [place] # Eos # Baso # Seg Neutrophils % Seg Neutrophils # PT INR APTT Heparin Anti-Xa Level 0.19 L POC ABG pH 7.458 H POC ABG pCO2 37.9 POC ABG pO2 63 L POC ABG HCO3 26.8 POC ABG Total CO2 28 POC ABG O2 Sat 93 POC ABG Base Excess 3 FiO2 2 Sodium Potassium Chloride Carbon Dioxide Anion Gap BUN Creatinine Estimated GFR BUN/Creatinine Ratio Glucose POC Glucose 216 H Calcium
--- NOTE | 2018-10-19 09:58 | XRay Report ---
ROUTINE CHEST, TWO VIEWS: HISTORY: Bilateral pulmonary infiltrates. Bilateral pulmonary infiltrates, left greater than right, have decreased by 25% since the exam 3 days ago. Small right pleural effusion appears stable. The remainder of the lungs are clear. Heart size is borderline. Previous valve replacement changes are noted. Right arm PICC terminates in the superior right atrium. IMPRESSION: Mild improvement in the bilateral infiltrates.
--- NOTE | 2018-10-19 10:39 | Progress Note ---
Assessment and Plan INR 1.4 this AM. Initiate heparin gtt (okay per GI team) and ultimately plan resume coumadin with tx INR 2.5-3.5 if okay from GI standpoint. Pt for endoscopy tomorrow pending pulmonary risk stratification. Currently stable cardiac status. Pt is at high cardiovascular risk for endoscopy in setting of multiple cardiac co-morbidities. However, there are no immediate cardiac contraindications to proceeding with endoscopy at this time. Convert IV lasix to PO lasix. Cont PO lopressor. Consider ACEI/ARB if okay per nephrology. The patient has been seen in conjunction with Dr. Colmenares who agrees with the assessment and plan of care. - Patient Problems (1) Altered mental status Current Visit: Yes Status: Resolved (2) Seizures Current Visit: Yes Status: Suspected (3) Hypoglycemia Current Visit: Yes Status: Resolved (4) Acute respiratory failure Current Visit: Yes Status: Resolved (5) Pneumonia Current Visit: Yes Status: Suspected Qualifiers: Pneumonia type: due to unspecified organism Laterality: right Lung location: middle lobe of lung Qualified Code(s): J18.1 - Lobar pneumonia, unspecified organism (6) Sepsis Current Visit: Yes Status: Suspected Qualifiers: Sepsis type: sepsis due to unspecified organism Qualified Code(s): A41.9 - Sepsis, unspecified organism (7) CAD (coronary artery disease) Current Visit: Yes Status: Chronic (8) History of coronary artery bypass graft Current Visit: Yes Status: Chronic (9) H/O mitral valve replacement with mechanical valve Current Visit: Yes Status: Chronic (10) Heart failure with reduced ejection fraction Current Visit: Yes Status: Acute (11) Acute on chronic renal failure Current Visit: Yes Status: Acute (12) Anemia Current Visit: Yes Status: Chronic (13) History of GI bleed Current Visit: Yes Status: Chronic (14) Diabetes Current Visit: Yes Status: Chronic Subjective Date of service: 10/19/18 Principal diagnosis: anemia/GI bleed? Interval history: pt resting in bed, no current cardiac complaints. Objective Last Vital Signs Temp 98.7 F 10/19/18 05:28 Pulse 96 H 10/19/18 08:52 Resp 20 10/19/18 05:28 BP 132/77 10/19/18 08:52 Pulse Ox 95 10/19/18 05:28 - Physical Examination General: No Apparent Distress HEENT: Positive: PERRL Neck: Positive: neck supple Cardiac: Positive: Reg Rate and Rhythm, S1/S2 Lungs: Positive: Decreased Breath Sounds Neuro: Positive: Grossly Intact Abdomen: Negative: Tender Skin: Negative: Rash Extremities: Absent: edema - Labs and Meds Coagulation 10/19/18 Range/Units 07:12 PT 18.1 H (12.2-14.9) Sec. INR 1.40 H (0.87-1.13) CBC 10/19/18 Range/Units 05:52 WBC 10.4 (4.5-11.0) K/mm3 RBC 2.84 L (3.65-5.03) M/mm3 Hgb 7.7 L (10.1-14.3) gm/dl Hct 23.2 L (30.3-42.9) % Plt Count 320 (140-440) K/mm3 Lymph # 1.1 L (1.2-5.4) K/mm3 [place] # 0.7 (0.0-0.8) K/mm3 Eos # 0.3 (0.0-0.4) K/mm3 Baso # 0.1 (0.0-0.1) K/mm3 Comprehensive Metabolic Panel 10/18/18 10/19/18 Range/Units 20:20 05:52 Sodium 141 (137-145) mmol/L Potassium 4.2 3.6 (3.6-5.0) mmol/L Chloride 102.4 (98-107) mmol/L Carbon Dioxide 29 (22-30) mmol/L BUN 21 H (7-17) mg/dL Creatinine 1.6 H (0.7-1.2) mg/dL Glucose 128 H (65-100) mg/dL Calcium 7.7 L (8.4-10.2) mg/dL - Imaging and Cardiology EKG: report reviewed, image reviewed Echo: report reviewed (07/2018: EF 40%, mild to mod LVH, LA and RA dilated, mod TR and NC, mechanical valve in mitral position that appears to be functioning properly. 10/2018: EF 35-40%, mod LVH, abnormal diastolic function, LA severely dilated, mechanical MV appears well seated with normal function, mod pulm HTN. 11/2016 showed EF 40-45%, abnormal diastolic function, trace MR, mild TR, RVSP 36mmHg. ) - EKG Sinus rhythms and dysrhythmias: sinus rhythm Chamber hypertrophy or enlargement: left ventricular hypertro - Allied health notes Allied health notes reviewed: nursing
[2018-10-19 10:40] LABS: Hematocrit 24.6 % (30.3-42.9); Hemoglobin 8.1 gm/dl (10.1-14.3)
[2018-10-19 10:52] LABS: INR 1.36 (0.87-1.13); Partial Thromboplastin Time 32.9 Sec. (24.2-36.6)
[2018-10-19] MEDS: PREVACID SOLUTAB FEEDTUBE SCH ×2 (11:30→21:13)
[2018-10-19] MEDS: LASIX PO SCH (11:30)
[2018-10-19] MEDS: LANTUS SUB-Q SCH (11:30)
[2018-10-19] MEDS: HEPARIN/ 0.45% NACL-25,000 UNIT/500 ML 25,000 UNIT/500 ML BAG IV SCH (11:56)
[2018-10-19] MEDS: SODIUM CHLORIDE FLUSH SYRINGE 10 ML IV SCH ×2 (12:11→21:14)
--- NOTE | 2018-10-19 13:13 | Progress Note ---
Assessment and Plan Assessment and plan: 48 year old woman with history of coronary artery disease, status post cabbage, diabetes, hypertension who was brought to the emergency room for altered mental status. She was found to have hypoglycemia, she was also having convulsions at the time of admission. The patient was intubated, sp dextrose she was put on the ventilator she was found to have pneumonia and CHF flare and started on antibiotics. patient has history of MV replacement and was on anticoagulation. Pneumonia, severe sepsis - Patient was on IV antibiotics and completed on 10/13 per ID Acute hypoxic respiratory failure on MV >96 hrs Was intubated and on mechanical ventilation - patient was extubated on 10/13 -Weaned to room air on 10/19 status epilepticus; Seizures when most likely due to hypoglycemia -Treated with dextrose -, neurology consult appreciated Acute on chronic systolic CHF EF 40%, dilated ventricles -cardiology consult appreciated, sp lasix, now on PO lasix [facility]/hypercoaguable state/coagulopathy due to warfarin INR subtherapeutic, on heparin ggt -very sensitive to warfain and gets supratherapeutic very quickly after a few doses, hematology consulted, will be restarted on low dose Severe anemia sp-transfusion, Gi workup planned for scope tomorrow 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, treated as type 1, uncontrolled, a1c 10.2 Continue insulins judiciously, brittle DM with episodes of hypoglycemia and hyperglycemia, labile glc Mazin upon ckd stage 3, vasomotor nephropathy and likely ATN from sepsis Nephrology input appreciated, avoid nephrotoxins, neph signed off on 10/15 hypernatremia resolved after she received hypotonic ivf Hyperkalemia resolved with insulin and diuretics htn urgency; optimized bp meds Marijuana abuse; was counseled, preventive health counseling, done 17 mins spent dvt ppx- chemical, History Interval history: Review of systems Constitutional: No fevers, no malaise, no joint pains CVS: No chest pain, no pedal edema, sob is resolved GI:no hematemesis, blood in stool or melena, No abdominal pain, no diarrhea, no vomiting, no constipation Respiratory: No cough or wheezing Hospitalist Physical - Physical exam Narrative exam: General.: appears well HEENT: Moist mucous membranes, extraocular muscles intact, no lymphadenopathy Neck: supple Cardiac: S1-S2 heard Lungs: Clear to auscultation Abdomen: soft , nontender, nondistended, bowel sounds positive Extremities: no edema clubbing or cyanosis Skin: no rash or lesions Neurologic: no focal deficit Psych: calm and cooperative - Constitutional Vitals: Temp Pulse Resp BP Pulse Ox 98.1 F 90 18 128/83 98 10/19/18 11:39 10/19/18 11:39 10/19/18 11:39 10/19/18 11:39 10/19/18 11:39 General appearance: Present: other (intubated, eyes open, no purposeful response to commands) Results - Labs CBC & Chem 7: 10/20/18 03:00 10/20/18 03:00 Labs: Laboratory Last Values WBC 10.4 K/mm3 (4.5-11.0) 10/19/18 05:52 RBC 2.84 M/mm3 (3.65-5.03) L 10/19/18 05:52 Hgb 8.1 gm/dl (10.1-14.3) L 10/19/18 09:41 Hct 24.6 % (30.3-42.9) L 10/19/18 09:41 MCV 82 fl (79-97) 10/19/18 05:52 MCH 27 pg (28-32) L 10/19/18 05:52 MCHC 33 % (30-34) 10/19/18 05:52 RDW 19.8 % (13.2-15.2) H 10/19/18 05:52 Plt Count 322 K/mm3 (140-440) 10/19/18 09:41 Lymph % (Auto) 11.0 % (13.4-35.0) L 10/19/18 05:52 Kaufman % (Auto) 6.3 % (0.0-7.3) 10/19/18 05:52 Eos % (Auto) 3.2 % (0.0-4.3) 10/19/18 05:52 Baso % (Auto) 1.0 % (0.0-1.8) 10/19/18 05:52 Lymph # 1.1 K/mm3 (1.2-5.4) L 10/19/18 05:52 Kaufman # 0.7 K/mm3 (0.0-0.8) 10/19/18 05:52 Eos # 0.3 K/mm3 (0.0-0.4) 10/19/18 05:52 Baso # 0.1 K/mm3 (0.0-0.1) 10/19/18 05:52 Add Manual Diff Complete 10/17/18 05:00 Total Counted 100 10/17/18 05:00 Seg Neutrophils % 78.5 % (40.0-70.0) H 10/19/18 05:52 Seg Neuts % (Manual) 87.0 % (40.0-70.0) H 10/17/18 05:00 0 % 10/17/18 05:00 9.0 % (13.4-35.0) L 10/17/18 05:00 Reactive Lymphs % (Man) 0 % 10/17/18 05:00 2.0 % (0.0-7.3) 10/17/18 05:00 2.0 % (0.0-4.3) 10/17/18 05:00 0 % (0.0-1.8) 10/17/18 05:00 0 % 10/17/18 05:00 0 % 10/17/18 05:00 0 % 10/17/18 05:00 0 % 10/17/18 05:00 Nucleated RBC % Not Reportable 10/17/18 05:00 Seg Neutrophils # 8.1 K/mm3 (1.8-7.7) H 10/19/18 05:52 Seg Neutrophils # Man 10.1 K/mm3 (1.8-7.7) H 10/17/18 05:00 Band Neutrophils # 0.0 K/mm3 10/17/18 05:00 1.0 K/mm3 (1.2-5.4) L 10/17/18 05:00 Abs React Lymphs (Man) 0.0 K/mm3 10/17/18 05:00 0.2 K/mm3 (0.0-0.8) 10/17/18 05:00 0.2 K/mm3 (0.0-0.4) 10/17/18 05:00 0.0 K/mm3 (0.0-0.1) 10/17/18 05:00 0.0 K/mm3 10/17/18 05:00 0.0 K/mm3 10/17/18 05:00 0.0 K/mm3 10/17/18 05:00 Blast Cells # 0.0 K/mm3 10/17/18 05:00 WBC Morphology Not Reportable 10/17/18 05:00 Hypersegmented Neuts Not Reportable 10/17/18 05:00 Hyposegmented Neuts Not Reportable 10/17/18 05:00 Hypogranular Neuts Not Reportable 10/17/18 05:00 Not Reportable 10/17/18 05:00 Not Reportable 10/17/18 05:00 Not Reportable 10/17/18 05:00 Not Reportable 10/17/18 05:00 Not Reportable 10/17/18 05:00 Not Reportable 10/17/18 05:00 Consistent w auto 10/17/18 05:00 Not Reportable 10/17/18 05:00 Plt Clumps, EDTA Not Reportable 10/17/18 05:00 Not Reportable 10/17/18 05:00 Not Reportable 10/17/18 05:00 Not Reportable 10/17/18 05:00 Plt Morphology Comment Not Reportable 10/17/18 05:00 RBC Morphology Not Reportable 10/17/18 05:00 Dimorphic RBCs Not Reportable 10/17/18 05:00 Not Reportable 10/17/18 05:00 1+ 10/17/18 05:00 Few 10/17/18 05:00 1+ 10/17/18 05:00 Not Reportable 10/17/18 05:00 Rare 10/17/18 05:00 Not Reportable 10/17/18 05:00 Not Reportable 10/17/18 05:00 Not Reportable 10/17/18 05:00 Not Reportable 10/17/18 05:00 Not Reportable 10/17/18 05:00 Not Reportable 10/17/18 05:00 Not Reportable 10/17/18 05:00 Not Reportable 10/17/18 05:00 Not Reportable 10/17/18 05:00 Not Reportable 10/17/18 05:00 Not Reportable 10/17/18 05:00 Not Reportable 10/17/18 05:00 Not Reportable 10/17/18 05:00 Acanthocytes (Spur) Not Reportable 10/17/18 05:00 Rouleaux Not Reportable 10/17/18 05:00 Not Reportable 10/17/18 05:00 Not Reportable 10/17/18 05:00 Not Reportable 10/17/18 05:00 Not Reportable 10/17/18 05:00 Hem Pathologist Commnt No 10/17/18 05:00 PT 17.7 Sec. (12.2-14.9) H 10/19/18 09:41 INR 1.36 (0.87-1.13) H 10/19/18 09:41 APTT 32.9 Sec. (24.2-36.6) 10/19/18 09:41 Heparin Anti-Xa Level 0.25 U.I./ml (0.3-0.7) L 10/15/18 07:00 POC ABG pH 7.426 (7.35-7.45) 10/13/18 09:41 POC ABG pCO2 37.2 (35-45) 10/13/18 09:41 POC ABG pO2 71 (80-105) L 10/13/18 04:50 POC ABG HCO3 24.4 (22-26 mml/L) 10/13/18 09:41 POC ABG Total CO2 26 (23-27mmol/L) 10/13/18 09:41 POC ABG O2 Sat 70 10/13/18 09:41 POC ABG Base Excess 0 ((-2) - (+3)mmol/L) 10/13/18 09:41 30 % 10/13/18 09:41 Sodium 141 mmol/L (137-145) 10/19/18 05:52 Potassium 3.6 mmol/L (3.6-5.0) 10/19/18 05:52 Chloride 102.4 mmol/L (98-107) 10/19/18 05:52 Carbon Dioxide 29 mmol/L (22-30) 10/19/18 05:52 13 mmol/L 10/19/18 05:52 BUN 21 mg/dL (7-17) H 10/19/18 05:52 1.6 mg/dL (0.7-1.2) H 10/19/18 05:52 Estimated GFR 41 ml/min 10/19/18 05:52 13 % 10/19/18 05:52 Glucose 128 mg/dL (65-100) H 10/19/18 05:52 POC Glucose 212 (70-105) H 10/19/18 11:46 10.2 % (4-6) H 10/07/18 22:08 Lactic Acid 1.50 mmol/L (0.7-2.0) 10/08/18 17:09 Calcium 7.7 mg/dL (8.4-10.2) L 10/19/18 05:52 Phosphorus 7.40 mg/dL (2.5-4.5) H 10/07/18 22:08 Magnesium 1.70 mg/dL (1.7-2.3) 10/18/18 20:20 0.60 mg/dL (0.1-1.2) 10/17/18 05:00 < 0.2 mg/dL (0-0.2) 10/17/18 05:00 0.4 mg/dL 10/17/18 05:00 AST 14 units/L (5-40) 10/17/18 05:00 ALT 8 units/L (7-56) 10/17/18 05:00 104 units/L (35-129) 10/17/18 05:00 40.0 umol/L (25-60) 10/07/18 02:43 < 0.010 ng/mL (0.00-0.029) 10/07/18 08:59 0.20 mg/dL (0.00-1.30) 10/07/18 14:55 NT-Pro-B Natriuret Pep 2865 pg/mL (0-450) H 10/09/18 03:20 5.4 g/dL (6.3-8.2) L 10/17/18 05:00 2.2 g/dL (3.9-5) L 10/17/18 05:00 0.7 % 10/17/18 05:00 Straw (Yellow) 10/07/18 02:34 Clear (Clear) 10/07/18 02:34 7.0 (5.0-7.0) 10/07/18 02:34 Ur Specific [place] 1.006 (1.003-1.030) 10/07/18 02:34 100 mg/dl mg/dL (Negative) 10/07/18 02:34 Neg mg/dL (Negative) 10/07/18 02:34 Neg mg/dL (Negative) 10/07/18 02:34 Sm (Negative) 10/07/18 02:34 Neg (Negative) 10/07/18 02:34 Neg (Negative) 10/07/18 02:34 < 2.0 mg/dL (<2.0) 10/07/18 02:34 Ur Leukocyte Esterase Tr (Negative) 10/07/18 02:34 1.0 /HPF (0.0-6.0) 10/07/18 02:34 5.0 /HPF (0.0-6.0) 10/07/18 02:34 U Epithel Cells (Auto) 1.0 /HPF (0-13.0) 10/07/18 02:34 Hyaline Casts 3 /LPF 10/07/18 02:34 Few /HPF 10/07/18 02:34 Presumptive negative 10/07/18 02:34 Presumptive negative 10/07/18 02:34 Ur Barbiturates Screen Presumptive negative 10/07/18 02:34 Ur Phencyclidine Scrn Presumptive negative 10/07/18 02:34 Ur Amphetamines Screen Presumptive negative 10/07/18 02:34 U Benzodiazepines Scrn Presumptive negative 10/07/18 02:34 Presumptive negative 10/07/18 02:34 U Marijuana (THC) Screen Presumptive positive 10/07/18 02:34 Disclamer 10/07/18 02:34 Blood Type O POSITIVE 10/15/18 10:27 Antibody Screen Negative 10/15/18 10:27 Crossmatch See Detail 10/15/18 10:27 Active Medications - Current Medications Current Medications: Generic Name Dose Route Start Last Admin Trade Name Freq PRN Reason Stop Dose Admin Acetaminophen 650 mg 10/07/18 04:59 10/18/18 18:40 Tylenol PO 650 mg Q4H PRN Administration Pain MILD(1-3)/Fever >100.5/RODRIGUEZ Lipase/Protease/Amylase 1 each 10/08/18 10:00 Pancreangelica Arredondo 10,500 Unit FEEDTUBE PRN PRN For Clogged Feeding Tube Dextrose 50 ml 10/07/18 20:42 10/10/18 05:46 D50w (25gm) Syringe IV 50 ml PRN PRN Administration Hypoglycemia Furosemide 40 mg 10/19/18 11:00 10/19/18 11:30 Lasix PO 40 mg QDAY ULI Administration Hydralazine HCl 10 mg 10/07/18 05:07 10/14/18 08:35 Apresoline IV 10 mg Q4H PRN Administration Blood Pressure Hydrophilic Ointment 1 applic 10/07/18 02:40 Vaseline Lip Therapy TP Q2HR PRN Dry Lips Heparin Sodium/Sodium Chloride 25,000 unit in 500 mls @ 15 mls/hr 10/19/18 10:00 10/19/18 11:56 Heparin/ 0.45% Nacl-25,000 Unit/500 Ml IV 750 units/hr TITR ULI 15 mls/hr Administration Protocol 750 UNITS/HR Insulin Glargine 5 units 10/12/18 12:00 10/19/18 11:30 Lantus SUB-Q 5 units DAILY ULI Administration Insulin Human Lispro 0 unit 10/09/18 00:00 10/19/18 07:13 Humalog SUB-Q Not Given Q6HR [facility] Protocol Insulin Human Lispro 5 unit 10/18/18 16:30 10/19/18 08:37 Humalog SUB-Q 5 unit AC ULI Administration Lansoprazole 30 mg 10/16/18 22:00 10/19/18 11:30 Prevacid Solutab FEEDTUBE 30 mg BID ULI Administration Metoclopramide HCl 10 mg 10/11/18 13:00 10/12/18 19:32 Reglan IV 10 mg Q6HR PRN Administration Nausea And Vomiting Metoprolol Tartrate 50 mg 10/14/18 08:40 10/19/18 08:52 Lopressor PO 50 mg TID ULI Administration Multi-Ingred Cream/Lotion/Oil/Oint 1 applic 10/07/18 02:40 Artificial Tears Ophth Oint OU Q4HR PRN Dry Eye(s) Ondansetron HCl 4 mg 10/07/18 04:59 Zofran IV Q8H PRN N/V unrelieved by Reglan Polyethylene Glycol/Electrolytes 4,000 ml 10/19/18 16:00 Golytely PO 10/19/18 16:01 ONCE ONE Quetiapine Fumarate 100 mg 10/09/18 22:00 10/18/18 21:39 Seroquel PO 100 mg QHS ULI Administration Simple Syrup 15 ml 10/08/18 10:00 Simple Syrup FEEDTUBE PRN PRN Hypoglycemia Simple Syrup 30 ml 10/08/18 10:00 10/09/18 01:09 Simple Syrup FEEDTUBE 30 ml PRN PRN Administration Hypoglycemia Sodium Bicarbonate 325 mg 10/08/18 10:00 Sodium Bicarbonate FEEDTUBE PRN PRN For Clogged Feeding Tube Sodium Chloride 10 ml 10/07/18 10:00 10/19/18 12:11 Sodium Chloride Flush Syringe 10 Ml IV 10 ml BID ULI Administration Sodium Chloride 10 ml 10/07/18 04:59 10/18/18 07:15 Sodium Chloride Flush Syringe 10 Ml IV 10 ml PRN PRN Administration LINE FLUSH Nutrition/Malnutrition Assess - Dietary Evaluation Nutrition/Malnutrition Findings: Nutrition Notes Start: 10/07/18 12:17 Freq: Status: Active Protocol: Document 10/18/18 10:18 CP (Rec: 10/18/18 10:25 CP [id number]) Co-Sign 10/18/18 10:18 LP Nutrition Notes Initial or Follow up Reassessment Current Diagnosis CKD (stage V CKD),Diabetes, Hypertension,Heart Failure Current Diet Cardiac diet Labs/Tests K 3.5 BG 115 Pertinent Medications Lasix Humalog Height 5 ft 2 in Weight 54.1 kg Marcy Body Weight (kg) 50.00 BMI 21.8 Subjective/Other Information F/U for PO tolerance, diet advancement, need for DNI education. Pt appeared to be half-awake during time of visit. Observed uneaten tray by bedside. When asked if she wanted an ONS, the pt nodded her head. Per RN note, pt ate 100% of her dinner last night. Pt is not on coumadin medication currently. Percent of energy/protein needs met: 0%/0% Burn Absent Trauma Absent #1 Nutrition Diagnosis Inadequate oral intake Diagnosis Progress(for reassessment Continues documentation) Is patient on ventilator? No Is Patient Ambulatory and/or Out of Bed No REE-([facility] Jene-confined to bed) 1347.156 Calculation [facility]ations [facility] Additional Notes Pro needs 0.8-1g/k-54g/ day Fluid needs 1ml/kcal Nutrition Intervention Change Diet Order: Continue current or per MD request Goal #1 PO tolerance Goal #2 PO intake to meet at least 75% of energy and protein needs Goal #3 Improved BG control Follow-Up By: 10/21/18 Additional Comments F/U: PO tolerance, diet advancement
[2018-10-19] MEDS ORDERED: GOLYTELY PO ONE (16:00)
--- NOTE | 2018-10-19 19:36 | Progress Note ---
Assessment and Plan Patient resting on 2 litres O2. O2 saturation O2 saturation 98%. Patient weak. No acute respiratory distress. ABG on room air. POC ABG pH 7.426 (7.35-7.45) 10/13/18 09:41 POC ABG pCO2 37.2 (35-45) 10/13/18 09:41 POC ABG HCO3 24.4 (22-26 mml/L) 10/13/18 09:41 POC ABG Total CO2 26 (23-27mmol/L) 10/13/18 09:41 POC ABG O2 Sat 70 10/13/18 09:41 Recommend to increase O2 to 3 litres. - Patient Problems (1) Acute respiratory failure with hypoxia Current Visit: Yes Status: Acute Plan to address problem: O2 3 litres via nasal canula. Albuterol/atrovent aerosol treatments q 6 hours. ABG on room air. POC ABG pH 7.426 (7.35-7.45) 10/13/18 09:41 POC ABG pCO2 37.2 (35-45) 10/13/18 09:41 POC ABG HCO3 24.4 (22-26 mml/L) 10/13/18 09:41 POC ABG Total CO2 26 (23-27mmol/L) 10/13/18 09:41 POC ABG O2 Sat 70 10/13/18 09:41 Recommend to increase O2 to 3 litres. (2) Acute on chronic renal failure Current Visit: Yes Status: Acute Plan to address problem: Management as per nephrology. (3) Altered mental status Current Visit: Yes Status: Resolved Plan to address problem: Management as per primary care. (4) Heart failure with reduced ejection fraction Current Visit: Yes Status: Acute Plan to address problem: Management as per cardiology. (5) Diabetes Current Visit: Yes Status: Chronic Plan to address problem: Management as per primary care. (6) H/O mitral valve replacement with mechanical valve Current Visit: Yes Status: Chronic Plan to address problem: Management as per cardiology. Subjective Date of service: 10/19/18 Principal diagnosis: anemia/GI bleed? Interval history: Patient resting on 2 litres O2. O2 saturation O2 saturation 98%. Patient weak. No acute respiratory distress. ABG on room air POC ABG pH 7.426 (7.35-7.45) 10/13/18 09:41 POC ABG pCO2 37.2 (35-45) 10/13/18 09:41 POC ABG HCO3 24.4 (22-26 mml/L) 10/13/18 09:41 POC ABG Total CO2 26 (23-27mmol/L) 10/13/18 09:41 POC ABG O2 Sat 70 10/13/18 09:41 Recommend to increase O2 to 3 litres. Objective Vital Signs - 12hr 10/19/18 10/19/18 10/19/18 08:48 08:52 11:39 Temperature 98.1 F Pulse Rate 96 H 90 Respiratory 18 Rate Blood Pressure 132/77 132/77 128/83 O2 Sat by Pulse 98 Oximetry 10/19/18 10/19/18 10/19/18 13:16 16:00 16:05 Temperature 97.9 F Pulse Rate 99 H Respiratory 18 Rate Blood Pressure 117/70 117/73 O2 Sat by Pulse 98 93 Oximetry Constitutional: no acute distress, other (middle aged AAF, normocephalic, atraumatic) Eyes: non-icteric ENT: oropharynx moist, other (extubated) Neck: supple, no lymphadenopathy, no JVD Effort: mildly labored Ascultation: Bilateral: diminished breath sounds (bases), rales Percussion: Right: dull (base), Bilateral: not dull Cardiovascular: regular rate and rhythm, other (+ metallic valve tones) Gastrointestinal: normoactive bowel sounds, soft, non-tender, non-distended, other (No HSM) Integumentary: normal Extremities: no cyanosis, no edema, pulses normal, no ischemia or petechiae Neurologic: non-focal exam (grossly), pupils equal and round, CN II-XII normal, motor strength normal and, other (slow speech) Psychiatric: other (flat affect) CBC and BMP: 10/19/18 09:41 10/19/18 05:52 ABG, PT/INR, D-dimer: ABG POC ABG pH 7.426 (7.35-7.45) 10/13/18 09:41 POC ABG pCO2 37.2 (35-45) 10/13/18 09:41 POC ABG HCO3 24.4 (22-26 mml/L) 10/13/18 09:41 POC ABG Total CO2 26 (23-27mmol/L) 10/13/18 09:41 POC ABG O2 Sat 70 10/13/18 09:41 PT/INR, D-dimer PT 17.7 Sec. (12.2-14.9) H 10/19/18 09:41 INR 1.36 (0.87-1.13) H 10/19/18 09:41 Abnormal lab findings: Abnormal Labs 10/07/18 10/07/18 10/07/18 02:20 02:43 02:43 WBC RBC Hgb Hct MCH 25 L RDW 21.5 H Lymph % (Auto) [place] % (Auto) Lymph # 0.9 L [place] # Baso # Seg Neutrophils % 78.4 H Seg Neuts % (Manual) Lymphocytes % (Manual) Seg Neutrophils # Seg Neutrophils # Man Lymphocytes # (Manual) PT INR APTT Heparin Anti-Xa Level POC ABG pH POC ABG pCO2 POC ABG pO2 Sodium Potassium Chloride 108.0 H Carbon Dioxide 21 L BUN Creatinine 1.5 H Glucose 115 H POC Glucose 136 H Hemoglobin A1c Lactic Acid Calcium Phosphorus AST 51 H Alkaline Phosphatase 257 H NT-Pro-B Natriuret Pep Total Protein Albumin Crossmatch 10/07/18 10/07/18 10/07/18 02:43 04:32 05:12 WBC RBC Hgb Hct MCH RDW Lymph % (Auto) [place] % (Auto) Lymph # [place] # Baso # Seg Neutrophils % Seg Neuts % (Manual) Lymphocytes % (Manual) Seg Neutrophils # Seg Neutrophils # Man Lymphocytes # (Manual) PT 25.4 H INR 2.14 H APTT Heparin Anti-Xa Level POC ABG pH POC ABG pCO2 33.6 L POC ABG pO2 69 L Sodium Potassium Chloride Carbon Dioxide BUN Creatinine Glucose POC Glucose Hemoglobin A1c Lactic Acid 2.40 H* Calcium Phosphorus AST Alkaline Phosphatase NT-Pro-B Natriuret Pep Total Protein Albumin Crossmatch 10/07/18 10/07/18 10/07/18 06:28 18:39 20:26 WBC RBC Hgb Hct MCH RDW Lymph % (Auto) [place] % (Auto) Lymph # [place] # Baso # Seg Neutrophils % Seg Neuts % (Manual) Lymphocytes % (Manual) Seg Neutrophils # Seg Neutrophils # Man Lymphocytes # (Manual) PT INR APTT Heparin Anti-Xa Level POC ABG pH POC ABG pCO2 POC ABG pO2 Sodium Potassium Chloride Carbon Dioxide BUN Creatinine Glucose POC Glucose 164 H 440 H > 500 H Hemoglobin A1c Lactic Acid Calcium Phosphorus AST Alkaline Phosphatase NT-Pro-B Natriuret Pep Total Protein Albumin Crossmatch 10/07/18 10/07/18 10/07/18 20:28 21:53 22:08 WBC RBC Hgb Hct MCH RDW Lymph % (Auto) [place] % (Auto) Lymph # [place] # Baso # Seg Neutrophils % Seg Neuts % (Manual) Lymphocytes % (Manual) Seg Neutrophils # Seg Neutrophils # Man Lymphocytes # (Manual) PT INR APTT Heparin Anti-Xa Level POC ABG pH POC ABG pCO2 POC ABG pO2 Sodium 136 L D Potassium 6.4 H* D Chloride Carbon Dioxide 10 L D BUN 30 H Creatinine 2.0 H Glucose 544 H* POC Glucose 483 H > 500 H Hemoglobin A1c Lactic Acid Calcium 7.0 L D Phosphorus AST Alkaline Phosphatase NT-Pro-B Natriuret Pep Total Protein Albumin Crossmatch 10/07/18 10/07/18 10/07/18 22:08 22:08 22:56 WBC RBC Hgb Hct MCH RDW Lymph % (Auto) [place] % (Auto) Lymph # [place] # Baso # Seg Neutrophils % Seg Neuts % (Manual) Lymphocytes % (Manual) Seg Neutrophils # Seg Neutrophils # Man Lymphocytes # (Manual) PT INR APTT Heparin Anti-Xa Level POC ABG pH POC ABG pCO2 POC ABG pO2 Sodium Potassium Chloride Carbon Dioxide BUN Creatinine Glucose POC Glucose 462 H Hemoglobin A1c 10.2 H Lactic Acid Calcium Phosphorus 7.40 H AST Alkaline Phosphatase NT-Pro-B Natriuret Pep Total Protein Albumin Crossmatch 10/07/18 10/08/18 10/08/18 23:39 00:58 02:09 WBC RBC Hgb Hct MCH RDW Lymph % (Auto) [place] % (Auto) Lymph # [place] # Baso # Seg Neutrophils % Seg Neuts % (Manual) Lymphocytes % (Manual) Seg Neutrophils # Seg Neutrophils # Man Lymphocytes # (Manual) PT INR APTT Heparin Anti-Xa Level POC ABG pH POC ABG pCO2 POC ABG pO2 Sodium Potassium Chloride Carbon Dioxide BUN Creatinine Glucose POC Glucose 396 H 375 H 285 H Hemoglobin A1c Lactic Acid Calcium Phosphorus AST Alkaline Phosphatase NT-Pro-B Natriuret Pep Total Protein Albumin Crossmatch 0510/08/18 10/08/18 03:10 03:33 04:05 WBC RBC Hgb Hct MCH RDW Lymph % (Auto) [place] % (Auto) Lymph # [place] # Baso # Seg Neutrophils % Seg Neuts % (Manual) Lymphocytes % (Manual) Seg Neutrophils # Seg Neutrophils # Man Lymphocytes # (Manual) PT INR APTT Heparin Anti-Xa Level POC ABG pH 7.243 L POC ABG pCO2 33.8 L POC ABG pO2 126 H Sodium Potassium 5.3 H Chloride 110.7 H Carbon Dioxide 14 L BUN 33 H Creatinine 2.2 H Glucose 193 H POC Glucose 251 H Hemoglobin A1c Lactic Acid Calcium 7.0 L Phosphorus AST Alkaline Phosphatase 155 H NT-Pro-B Natriuret Pep Total Protein 5.2 L D Albumin 2.6 L Crossmatch 10/08/18 10/08/18 10/08/18 04:05 04:05 04:09 WBC 11.8 H RBC 3.32 L Hgb 8.3 L Hct 27.5 L D MCH 25 L RDW 22.0 H Lymph % (Auto) 6.8 L [place] % (Auto) 12.0 H Lymph # 0.8 L [place] # 1.4 H Baso # Seg Neutrophils % 80.6 H Seg Neuts % (Manual) Lymphocytes % (Manual) Seg Neutrophils # 9.5 H Seg Neutrophils # Man Lymphocytes # (Manual) PT INR APTT Heparin Anti-Xa Level POC ABG pH POC ABG pCO2 POC ABG pO2 Sodium Potassium Chloride Carbon Dioxide BUN Creatinine Glucose POC Glucose 175 H Hemoglobin A1c Lactic Acid 3.70 H* Calcium Phosphorus AST Alkaline Phosphatase NT-Pro-B Natriuret Pep Total Protein Albumin Crossmatch 10/08/18 10/08/18 10/08/18 05:07 06:05 07:14 WBC RBC Hgb Hct MCH RDW Lymph % (Auto) [place] % (Auto) Lymph # [place] # Baso # Seg Neutrophils % Seg Neuts % (Manual) Lymphocytes % (Manual) Seg Neutrophils # Seg Neutrophils # Man Lymphocytes # (Manual) PT INR APTT Heparin Anti-Xa Level POC ABG pH POC ABG pCO2 POC ABG pO2 Sodium Potassium Chloride Carbon Dioxide BUN Creatinine Glucose POC Glucose 125 H 122 H 147 H Hemoglobin A1c Lactic Acid Calcium Phosphorus AST Alkaline Phosphatase NT-Pro-B Natriuret Pep Total Protein Albumin Crossmatch 10/08/18 10/08/1810/08/19 07:22 08:09 08:47 WBC RBC Hgb Hct MCH RDW Lymph % (Auto) [place] % (Auto) Lymph # [place] # Baso # Seg Neutrophils % Seg Neuts % (Manual) Lymphocytes % (Manual) Seg Neutrophils # Seg Neutrophils # Man Lymphocytes # (Manual) PT INR APTT Heparin Anti-Xa Level POC ABG pH POC ABG pCO2 POC ABG pO2 Sodium Potassium 5.2 H Chloride 112.4 H Carbon Dioxide 17 L BUN 32 H Creatinine 2.1 H Glucose 148 H POC Glucose 134 H 148 H Hemoglobin A1c Lactic Acid Calcium 6.6 L Phosphorus AST Alkaline Phosphatase NT-Pro-B Natriuret Pep Total Protein Albumin Crossmatch 10/08/18 10/08/18 10/08/18 10:21 13:29 14:21 WBC RBC Hgb Hct MCH RDW Lymph % (Auto) [place] % (Auto) Lymph # [place] # Baso # Seg Neutrophils % Seg Neuts % (Manual) Lymphocytes % (Manual) Seg Neutrophils # Seg Neutrophils # Man Lymphocytes # (Manual) PT INR APTT Heparin Anti-Xa Level POC ABG pH POC ABG pCO2 POC ABG pO2 Sodium Potassium Chloride Carbon Dioxide BUN Creatinine Glucose POC Glucose 115 H 109 H 118 H Hemoglobin A1c Lactic Acid Calcium Phosphorus AST Alkaline Phosphatase NT-Pro-B Natriuret Pep Total Protein Albumin Crossmatch 10/08/18 10/08/18 10/08/18 15:27 17:00 17:00 WBC 11.3 H RBC 3.21 L Hgb 7.9 L Hct 25.7 L MCH 25 L RDW 21.8 H Lymph % (Auto) 8.5 L [place] % (Auto) 7.7 H Lymph # 1.0 L [place] # 0.9 H Baso # Seg Neutrophils % 82.8 H Seg Neuts % (Manual) Lymphocytes % (Manual) Seg Neutrophils # 9.3 H Seg Neutrophils # Man Lymphocytes # (Manual) PT INR APTT Heparin Anti-Xa Level POC ABG pH POC ABG pCO2 POC ABG pO2 Sodium Potassium Chloride Carbon Dioxide BUN Creatinine Glucose POC Glucose 129 H Hemoglobin A1c Lactic Acid Calcium Phosphorus AST Alkaline Phosphatase NT-Pro-B Natriuret Pep 3097 H Total Protein Albumin Crossmatch 10/08/18 10/08/18 10/08/18 17:07 17:12 18:22 WBC RBC Hgb Hct MCH RDW Lymph % (Auto) [place] % (Auto) Lymph # [place] # Baso # Seg Neutrophils % Seg Neuts % (Manual) Lymphocytes % (Manual) Seg Neutrophils # Seg Neutrophils # Man Lymphocytes # (Manual) PT INR APTT Heparin Anti-Xa Level POC ABG pH 7.337 L POC ABG pCO2 32.0 L POC ABG pO2 130 H Sodium Potassium Chloride 115.5 H Carbon Dioxide 17 L BUN 30 H Creatinine 1.9 H Glucose 103 H POC Glucose 119 H Hemoglobin A1c Lactic Acid Calcium 6.9 L Phosphorus AST Alkaline Phosphatase NT-Pro-B Natriuret Pep Total Protein Albumin Crossmatch 10/08/18 10/08/18 10/09/18 20:09 20:57 01:10 WBC RBC Hgb Hct MCH RDW Lymph % (Auto) [place] % (Auto) Lymph # [place] # Baso # Seg Neutrophils % Seg Neuts % (Manual) Lymphocytes % (Manual) Seg Neutrophils # Seg Neutrophils # Man Lymphocytes # (Manual) PT INR APTT Heparin Anti-Xa Level POC ABG pH POC ABG pCO2 POC ABG pO2 Sodium Potassium Chloride 114.3 H 113.7 H Carbon Dioxide 15 L 14 L BUN 29 H 29 H Creatinine 2.1 H 2.0 H Glucose 132 H 39 L* POC Glucose 150 H Hemoglobin A1c Lactic Acid Calcium 6.7 L 6.9 L Phosphorus AST Alkaline Phosphatase NT-Pro-B Natriuret Pep Total Protein Albumin Crossmatch 10/09/18 10/09/18 10/09/18 01:10 01:43 03:20 WBC RBC Hgb Hct MCH RDW Lymph % (Auto) [place] % (Auto) Lymph # [place] # Baso # Seg Neutrophils % Seg Neuts % (Manual) Lymphocytes % (Manual) Seg Neutrophils # Seg Neutrophils # Man Lymphocytes # (Manual) PT INR APTT Heparin Anti-Xa Level POC ABG pH POC ABG pCO2 POC ABG pO2 Sodium Potassium Chloride Carbon Dioxide BUN Creatinine Glucose POC Glucose < 40 L < 40 L Hemoglobin A1c Lactic Acid Calcium Phosphorus AST Alkaline Phosphatase NT-Pro-B Natriuret Pep 2865 H Total Protein Albumin Crossmatch 10/09/18 10/09/18 10/09/18 04:23 05:03 05:25 WBC RBC Hgb Hct MCH RDW Lymph % (Auto) [place] % (Auto) Lymph # [place] # Baso # Seg Neutrophils % Seg Neuts % (Manual) Lymphocytes % (Manual) Seg Neutrophils # Seg Neutrophils # Man Lymphocytes # (Manual) PT INR APTT Heparin Anti-Xa Level POC ABG pH POC ABG pCO2 30.6 L 32.3 L POC ABG pO2 118 H Sodium Potassium Chloride Carbon Dioxide BUN Creatinine Glucose POC Glucose 148 H Hemoglobin A1c Lactic Acid Calcium Phosphorus AST Alkaline Phosphatase NT-Pro-B Natriuret Pep Total Protein Albumin Crossmatch 10/09/18 10/09/18 10/09/18 06:00 08:34 09:58 WBC RBC Hgb Hct MCH RDW Lymph % (Auto) [place] % (Auto) Lymph # [place] # Baso # Seg Neutrophils % Seg Neuts % (Manual) Lymphocytes % (Manual) Seg Neutrophils # Seg Neutrophils # Man Lymphocytes # (Manual) PT INR APTT Heparin Anti-Xa Level POC ABG pH POC ABG pCO2 POC ABG pO2 Sodium Potassium Chloride Carbon Dioxide BUN Creatinine Glucose POC Glucose 173 H 196 H 183 H Hemoglobin A1c Lactic Acid Calcium Phosphorus AST Alkaline Phosphatase NT-Pro-B Natriuret Pep Total Protein Albumin Crossmatch 10/09/18 10/09/18 10/09/18 12:25 12:46 18:16 WBC RBC Hgb Hct MCH RDW Lymph % (Auto) [place] % (Auto) Lymph # [place] # Baso # Seg Neutrophils % Seg Neuts % (Manual) Lymphocytes % (Manual) Seg Neutrophils # Seg Neutrophils # Man Lymphocytes # (Manual) PT INR APTT Heparin Anti-Xa Level POC ABG pH POC ABG pCO2 POC ABG pO2 Sodium Potassium Chloride 110.3 H Carbon Dioxide 16 L BUN 24 H Creatinine 1.8 H Glucose 207 H POC Glucose 208 H 177 H Hemoglobin A1c Lactic Acid Calcium 6.9 L Phosphorus AST Alkaline Phosphatase NT-Pro-B Natriuret Pep Total Protein Albumin Crossmatch 10/09/18 10/10/18 10/10/18 21:11 00:11 05:41 WBC RBC Hgb Hct MCH RDW Lymph % (Auto) [place] % (Auto) Lymph # [place] # Baso # Seg Neutrophils % Seg Neuts % (Manual) Lymphocytes % (Manual) Seg Neutrophils # Seg Neutrophils # Man Lymphocytes # (Manual) PT INR APTT Heparin Anti-Xa Level POC ABG pH POC ABG pCO2 POC ABG pO2 Sodium Potassium Chloride Carbon Dioxide BUN Creatinine Glucose POC Glucose 124 H 156 H 42 L Hemoglobin A1c Lactic Acid Calcium Phosphorus AST Alkaline Phosphatase NT-Pro-B Natriuret Pep Total Protein Albumin Crossmatch 10/10/18 10/10/18 10/10/18 05:45 07:28 12:07 WBC RBC Hgb Hct MCH RDW Lymph % (Auto) [place] % (Auto) Lymph # [place] # Baso # Seg Neutrophils % Seg Neuts % (Manual) Lymphocytes % (Manual) Seg Neutrophils # Seg Neutrophils # Man Lymphocytes # (Manual) PT INR APTT Heparin Anti-Xa Level POC ABG pH POC ABG pCO2 POC ABG pO2 Sodium 146 H D Potassium Chloride 111.2 H Carbon Dioxide BUN 21 H Creatinine 1.8 H Glucose 44 L POC Glucose 114 H 49 L Hemoglobin A1c Lactic Acid Calcium 7.4 L Phosphorus AST Alkaline Phosphatase NT-Pro-B Natriuret Pep Total Protein Albumin Crossmatch 10/10/18 10/10/18 10/10/18 12:37 18:02 20:47 WBC RBC Hgb Hct MCH RDW Lymph % (Auto) [place] % (Auto) Lymph # [place] # Baso # Seg Neutrophils % Seg Neuts % (Manual) Lymphocytes % (Manual) Seg Neutrophils # Seg Neutrophils # Man Lymphocytes # (Manual) PT INR APTT Heparin Anti-Xa Level POC ABG pH POC ABG pCO2 POC ABG pO2 Sodium Potassium Chloride Carbon Dioxide BUN Creatinine Glucose POC Glucose 142 H 49 L 162 H Hemoglobin A1c Lactic Acid Calcium Phosphorus AST Alkaline Phosphatase NT-Pro-B Natriuret Pep Total Protein Albumin Crossmatch 10/10/18 10/10/18 10/10/18 21:45 22:19 23:50 WBC RBC Hgb Hct MCH RDW Lymph % (Auto) [place] % (Auto) Lymph # [place] # Baso # Seg Neutrophils % Seg Neuts % (Manual) Lymphocytes % (Manual) Seg Neutrophils # Seg Neutrophils # Man Lymphocytes # (Manual) PT INR APTT Heparin Anti-Xa Level POC ABG pH 7.334 L POC ABG pCO2 47.0 H POC ABG pO2 53 L 79 L Sodium Potassium Chloride Carbon Dioxide BUN Creatinine Glucose POC Glucose 185 H Hemoglobin A1c Lactic Acid Calcium Phosphorus AST Alkaline Phosphatase NT-Pro-B Natriuret Pep Total Protein Albumin Crossmatch 10/11/18 10/11/18 10/11/18 05:00 06:41 07:17 WBC RBC Hgb Hct MCH RDW Lymph % (Auto) [place] % (Auto) Lymph # [place] # Baso # Seg Neutrophils % Seg Neuts % (Manual) Lymphocytes % (Manual) Seg Neutrophils # Seg Neutrophils # Man Lymphocytes # (Manual) PT INR APTT Heparin Anti-Xa Level POC ABG pH POC ABG pCO2 POC ABG pO2 Sodium Potassium Chloride Carbon Dioxide BUN Creatinine 1.7 H Glucose 43 L POC Glucose 48 L 129 H Hemoglobin A1c Lactic Acid Calcium 7.7 L Phosphorus AST Alkaline Phosphatase NT-Pro-B Natriuret Pep Total Protein Albumin Crossmatch 10/11/18 10/11/18 10/11/18 11:14 13:32 14:25 WBC RBC 3.32 L Hgb 8.2 L Hct 26.4 L MCH 25 L RDW 21.6 H Lymph % (Auto) [place] % (Auto) Lymph # [place] # Baso # Seg Neutrophils % Seg Neuts % (Manual) Lymphocytes % (Manual) Seg Neutrophils # Seg Neutrophils # Man Lymphocytes # (Manual) PT 21.7 H INR 1.76 H APTT 50.5 H Heparin Anti-Xa Level POC ABG pH POC ABG pCO2 POC ABG pO2 Sodium Potassium Chloride Carbon Dioxide BUN Creatinine Glucose POC Glucose 138 H Hemoglobin A1c Lactic Acid Calcium Phosphorus AST Alkaline Phosphatase NT-Pro-B Natriuret Pep Total Protein Albumin Crossmatch 10/11/18 10/11/18 10/11/18 14:25 15:41 17:31 WBC RBC Hgb Hct MCH RDW Lymph % (Auto) [place] % (Auto) Lymph # [place] # Baso # Seg Neutrophils % Seg Neuts % (Manual) Lymphocytes % (Manual) Seg Neutrophils # Seg Neutrophils # Man Lymphocytes # (Manual) PT 20.6 H INR 1.65 H APTT 54.9 H Heparin Anti-Xa Level POC ABG pH POC ABG pCO2 POC ABG pO2 53 L Sodium Potassium Chloride Carbon Dioxide BUN Creatinine Glucose POC Glucose 133 H Hemoglobin A1c Lactic Acid Calcium Phosphorus AST Alkaline Phosphatase NT-Pro-B Natriuret Pep Total Protein Albumin Crossmatch 10/12/18 10/12/18 10/12/18 00:30 03:56 04:25 WBC RBC Hgb Hct MCH RDW Lymph % (Auto) [place] % (Auto) Lymph # [place] # Baso # Seg Neutrophils % Seg Neuts % (Manual) Lymphocytes % (Manual) Seg Neutrophils # Seg Neutrophils # Man Lymphocytes # (Manual) PT INR APTT Heparin Anti-Xa Level POC ABG pH 7.514 H POC ABG pCO2 31.2 L POC ABG pO2 Sodium Potassium Chloride Carbon Dioxide BUN Creatinine 1.6 H Glucose 287 H POC Glucose 353 H Hemoglobin A1c Lactic Acid Calcium 8.0 L Phosphorus AST Alkaline Phosphatase NT-Pro-B Natriuret Pep Total Protein Albumin Crossmatch 10/12/18 10/12/18 10/12/18 04:49 12:13 17:53 WBC RBC Hgb Hct MCH RDW Lymph % (Auto) [place] % (Auto) Lymph # [place] # Baso # Seg Neutrophils % Seg Neuts % (Manual) Lymphocytes % (Manual) Seg Neutrophils # Seg Neutrophils # Man Lymphocytes # (Manual) PT INR APTT Heparin Anti-Xa Level POC ABG pH POC ABG pCO2 POC ABG pO2 Sodium Potassium Chloride Carbon Dioxide BUN Creatinine Glucose POC Glucose 297 H 290 H 211 H Hemoglobin A1c Lactic Acid Calcium Phosphorus AST Alkaline Phosphatase NT-Pro-B Natriuret Pep Total Protein Albumin Crossmatch 10/12/18 10/12/18 10/13/18 18:57 21:35 04:50 WBC 11.8 H RBC 3.08 L Hgb 7.4 L Hct 24.2 L MCH 24 L RDW 21.5 H Lymph % (Auto) [place] % (Auto) Lymph # [place] # Baso # Seg Neutrophils % Seg Neuts % (Manual) Lymphocytes % (Manual) Seg Neutrophils # Seg Neutrophils # Man Lymphocytes # (Manual) PT INR APTT Heparin Anti-Xa Level 1.74 H POC ABG pH 7.497 H POC ABG pCO2 33.2 L POC ABG pO2 71 L Sodium Potassium Chloride Carbon Dioxide BUN Creatinine Glucose POC Glucose Hemoglobin A1c Lactic Acid Calcium Phosphorus AST Alkaline Phosphatase NT-Pro-B Natriuret Pep Total Protein Albumin Crossmatch 10/13/18 10/13/18 10/13/18 05:25 05:25 05:37 WBC 12.1 H RBC 3.02 L Hgb 7.4 L Hct 23.7 L MCH 25 L RDW 21.0 H Lymph % (Auto) 9.6 L [place] % (Auto) 10.0 H Lymph # [place] # 1.2 H Baso # Seg Neutrophils % 76.2 H Seg Neuts % (Manual) Lymphocytes % (Manual) Seg Neutrophils # 9.2 H Seg Neutrophils # Man Lymphocytes # (Manual) PT INR APTT Heparin Anti-Xa Level POC ABG pH POC ABG pCO2 POC ABG pO2 Sodium Potassium Chloride Carbon Dioxide BUN Creatinine 1.6 H Glucose 175 H POC Glucose 165 H Hemoglobin A1c Lactic Acid Calcium 8.3 L Phosphorus AST Alkaline Phosphatase NT-Pro-B Natriuret Pep Total Protein Albumin Crossmatch 10/13/18 10/13/18 10/13/18 06:45 11:12 17:19 WBC RBC Hgb Hct MCH RDW Lymph % (Auto) [place] % (Auto) Lymph # [place] # Baso # Seg Neutrophils % Seg Neuts % (Manual) Lymphocytes % (Manual) Seg Neutrophils # Seg Neutrophils # Man Lymphocytes # (Manual) PT 17.4 H INR 1.34 H APTT Heparin Anti-Xa Level POC ABG pH POC ABG pCO2 POC ABG pO2 Sodium Potassium Chloride Carbon Dioxide BUN Creatinine Glucose POC Glucose 223 H 129 H Hemoglobin A1c Lactic Acid Calcium Phosphorus AST Alkaline Phosphatase NT-Pro-B Natriuret Pep Total Protein Albumin Crossmatch 10/13/18 10/14/18 10/14/18 23:39 05:01 06:14 WBC RBC Hgb Hct MCH RDW Lymph % (Auto) [place] % (Auto) Lymph # [place] # Baso # Seg Neutrophils % Seg Neuts % (Manual) Lymphocytes % (Manual) Seg Neutrophils # Seg Neutrophils # Man Lymphocytes # (Manual) PT INR APTT Heparin Anti-Xa Level POC ABG pH POC ABG pCO2 POC ABG pO2 Sodium Potassium Chloride Carbon Dioxide BUN Creatinine 1.5 H Glucose 264 H POC Glucose 171 H 226 H Hemoglobin A1c Lactic Acid Calcium 8.0 L Phosphorus AST Alkaline Phosphatase NT-Pro-B Natriuret Pep Total Protein Albumin Crossmatch 10/14/18 10/14/18 10/14/18 06:14 12:24 19:33 WBC RBC Hgb Hct MCH RDW Lymph % (Auto) [place] % (Auto) Lymph # [place] # Baso # Seg Neutrophils % Seg Neuts % (Manual) Lymphocytes % (Manual) Seg Neutrophils # Seg Neutrophils # Man Lymphocytes # (Manual) PT 22.1 H INR 1.80 H APTT Heparin Anti-Xa Level POC ABG pH POC ABG pCO2 POC ABG pO2 Sodium Potassium Chloride Carbon Dioxide BUN Creatinine Glucose POC Glucose 403 H 164 H Hemoglobin A1c Lactic Acid Calcium Phosphorus AST Alkaline Phosphatase NT-Pro-B Natriuret Pep Total Protein Albumin Crossmatch 10/15/18 10/15/18 10/15/18 00:29 06:03 07:00 WBC RBC Hgb Hct MCH RDW Lymph % (Auto) [place] % (Auto) Lymph # [place] # Baso # Seg Neutrophils % Seg Neuts % (Manual) Lymphocytes % (Manual) Seg Neutrophils # Seg Neutrophils # Man Lymphocytes # (Manual) PT INR APTT Heparin Anti-Xa Level POC ABG pH POC ABG pCO2 POC ABG pO2 Sodium Potassium Chloride Carbon Dioxide BUN 20 H Creatinine 1.7 H Glucose 308 H POC Glucose 237 H 282 H Hemoglobin A1c Lactic Acid Calcium 7.6 L Phosphorus AST Alkaline Phosphatase NT-Pro-B Natriuret Pep Total Protein Albumin Crossmatch 10/15/18 10/15/18 10/15/18 07:00 08:03 10:27 WBC RBC Hgb 5.8 L* Hct 18.5 L* MCH RDW Lymph % (Auto) [place] % (Auto) Lymph # [place] # Baso # Seg Neutrophils % Seg Neuts % (Manual) Lymphocytes % (Manual) Seg Neutrophils # Seg Neutrophils # Man Lymphocytes # (Manual) PT 46.1 H INR 4.52 H APTT Heparin Anti-Xa Level 0.25 L POC ABG pH POC ABG pCO2 POC ABG pO2 Sodium Potassium Chloride Carbon Dioxide BUN Creatinine Glucose POC Glucose Hemoglobin A1c Lactic Acid Calcium Phosphorus AST Alkaline Phosphatase NT-Pro-B Natriuret Pep Total Protein Albumin Crossmatch See Detail 10/15/18 10/15/18 10/16/18 14:03 15:30 10:18 WBC RBC Hgb Hct MCH RDW Lymph % (Auto) [place] % (Auto) Lymph # [place] # Baso # Seg Neutrophils % Seg Neuts % (Manual) Lymphocytes % (Manual) Seg Neutrophils # Seg Neutrophils # Man Lymphocytes # (Manual) PT 53.8 H INR 5.48 H* APTT Heparin Anti-Xa Level POC ABG pH POC ABG pCO2 POC ABG pO2 Sodium Potassium Chloride Carbon Dioxide BUN Creatinine Glucose POC Glucose 336 H 259 H Hemoglobin A1c Lactic Acid Calcium Phosphorus AST Alkaline Phosphatase NT-Pro-B Natriuret Pep Total Protein Albumin Crossmatch 10/16/18 10/16/18 10/16/18 10:18 10:18 13:03 WBC 14.8 H RBC 3.03 L Hgb 8.2 L Hct 24.9 L D MCH 27 L RDW 19.2 H Lymph % (Auto) 5.7 L [place] % (Auto) Lymph # 0.8 L [place] # 1.1 H Baso # 0.2 H Seg Neutrophils % 84.3 H Seg Neuts % (Manual) Lymphocytes % (Manual) Seg Neutrophils # 12.5 H Seg Neutrophils # Man Lymphocytes # (Manual) PT INR APTT Heparin Anti-Xa Level POC ABG pH POC ABG pCO2 POC ABG pO2 Sodium Potassium Chloride Carbon Dioxide 20 L BUN 21 H Creatinine 1.5 H Glucose 326 H POC Glucose 329 H Hemoglobin A1c Lactic Acid Calcium 7.8 L Phosphorus AST Alkaline Phosphatase NT-Pro-B Natriuret Pep Total Protein Albumin Crossmatch 10/16/18 10/17/18 10/17/18 13:27 00:35 05:00 WBC RBC Hgb Hct MCH RDW Lymph % (Auto) [place] % (Auto) Lymph # [place] # Baso # Seg Neutrophils % Seg Neuts % (Manual) Lymphocytes % (Manual) Seg Neutrophils # Seg Neutrophils # Man Lymphocytes # (Manual) PT 55.4 H 60.2 H INR 5.68 H* 6.30 H* APTT Heparin Anti-Xa Level POC ABG pH POC ABG pCO2 POC ABG pO2 Sodium Potassium Chloride Carbon Dioxide BUN Creatinine Glucose POC Glucose 407 H Hemoglobin A1c Lactic Acid Calcium Phosphorus AST Alkaline Phosphatase NT-Pro-B Natriuret Pep Total Protein Albumin Crossmatch 10/17/18 10/17/18 10/17/18 05:00 05:00 05:29 WBC 11.6 H RBC 2.99 L Hgb 8.0 L Hct 24.2 L MCH 27 L RDW 19.2 H Lymph % (Auto) [place] % (Auto) Lymph # [place] # Baso # Seg Neutrophils % Seg Neuts % (Manual) 87.0 H Lymphocytes % (Manual) 9.0 L Seg Neutrophils # Seg Neutrophils # Man 10.1 H Lymphocytes # (Manual) 1.0 L PT INR APTT Heparin Anti-Xa Level POC ABG pH POC ABG pCO2 POC ABG pO2 Sodium Potassium 3.4 L D Chloride Carbon Dioxide BUN Creatinine 1.4 H Glucose 170 H POC Glucose 156 H Hemoglobin A1c Lactic Acid Calcium 7.6 L Phosphorus AST Alkaline Phosphatase NT-Pro-B Natriuret Pep Total Protein 5.4 L Albumin 2.2 L Crossmatch 10/17/18 10/17/18 10/18/18 11:59 17:06 00:21 WBC RBC Hgb Hct MCH RDW Lymph % (Auto) [place] % (Auto) Lymph # [place] # Baso # Seg Neutrophils % Seg Neuts % (Manual) Lymphocytes % (Manual) Seg Neutrophils # Seg Neutrophils # Man Lymphocytes # (Manual) PT INR APTT Heparin Anti-Xa Level POC ABG pH POC ABG pCO2 POC ABG pO2 Sodium Potassium Chloride Carbon Dioxide BUN Creatinine Glucose POC Glucose 389 H 151 H 355 H Hemoglobin A1c Lactic Acid Calcium Phosphorus AST Alkaline Phosphatase NT-Pro-B Natriuret Pep Total Protein Albumin Crossmatch 10/18/18 10/18/18 10/18/18 04:17 04:17 04:17 WBC RBC 3.01 L Hgb 8.1 L Hct 24.6 L MCH 27 L RDW 19.7 H Lymph % (Auto) 12.7 L [place] % (Auto) Lymph # [place] # Baso # Seg Neutrophils % 76.3 H Seg Neuts % (Manual) Lymphocytes % (Manual) Seg Neutrophils # 8.2 H Seg Neutrophils # Man Lymphocytes # (Manual) PT 39.5 H INR 3.72 H APTT Heparin Anti-Xa Level POC ABG pH POC ABG pCO2 POC ABG pO2 Sodium Potassium 3.5 L Chloride Carbon Dioxide BUN Creatinine 1.5 H Glucose 115 H POC Glucose Hemoglobin A1c Lactic Acid Calcium 7.4 L Phosphorus AST Alkaline Phosphatase NT-Pro-B Natriuret Pep Total Protein Albumin Crossmatch 10/18/18 10/18/18 10/18/18 06:45 13:39 17:12 WBC RBC Hgb Hct MCH RDW Lymph % (Auto) [place] % (Auto) Lymph # [place] # Baso # Seg Neutrophils % Seg Neuts % (Manual) Lymphocytes % (Manual) Seg Neutrophils # Seg Neutrophils # Man Lymphocytes # (Manual) PT INR APTT Heparin Anti-Xa Level POC ABG pH POC ABG pCO2 POC ABG pO2 Sodium Potassium Chloride Carbon Dioxide BUN Creatinine Glucose POC Glucose 170 H 415 H 377 H Hemoglobin A1c Lactic Acid Calcium Phosphorus AST Alkaline Phosphatase NT-Pro-B Natriuret Pep Total Protein Albumin Crossmatch 10/19/18 10/19/18 10/19/18 00:48 05:35 05:52 WBC RBC 2.84 L Hgb 7.7 L Hct 23.2 L MCH 27 L RDW 19.8 H Lymph % (Auto) 11.0 L [place] % (Auto) Lymph # 1.1 L [place] # Baso # Seg Neutrophils % 78.5 H Seg Neuts % (Manual) Lymphocytes % (Manual) Seg Neutrophils # 8.1 H Seg Neutrophils # Man Lymphocytes # (Manual) PT INR APTT Heparin Anti-Xa Level POC ABG pH POC ABG pCO2 POC ABG pO2 Sodium Potassium Chloride Carbon Dioxide BUN Creatinine Glucose POC Glucose 308 H 116 H Hemoglobin A1c Lactic Acid Calcium Phosphorus AST Alkaline Phosphatase NT-Pro-B Natriuret Pep Total Protein Albumin Crossmatch 10/19/18 10/19/18 10/19/18 05:52 07:12 09:41 WBC RBC Hgb 8.1 L Hct 24.6 L MCH RDW Lymph % (Auto) [place] % (Auto) Lymph # [place] # Baso # Seg Neutrophils % Seg Neuts % (Manual) Lymphocytes % (Manual) Seg Neutrophils # Seg Neutrophils # Man Lymphocytes # (Manual) PT 18.1 H INR 1.40 H APTT Heparin Anti-Xa Level POC ABG pH POC ABG pCO2 POC ABG pO2 Sodium Potassium Chloride Carbon Dioxide BUN 21 H Creatinine 1.6 H Glucose 128 H POC Glucose Hemoglobin A1c Lactic Acid Calcium 7.7 L Phosphorus AST Alkaline Phosphatase NT-Pro-B Natriuret Pep Total Protein Albumin Crossmatch 10/19/18 10/19/18 10/19/18 09:41 11:46 16:12 WBC RBC Hgb Hct MCH RDW Lymph % (Auto) [place] % (Auto) Lymph # [place] # Baso # Seg Neutrophils % Seg Neuts % (Manual) Lymphocytes % (Manual) Seg Neutrophils # Seg Neutrophils # Man Lymphocytes # (Manual) PT 17.7 H INR 1.36 H APTT Heparin Anti-Xa Level POC ABG pH POC ABG pCO2 POC ABG pO2 Sodium Potassium Chloride Carbon Dioxide BUN Creatinine Glucose POC Glucose 212 H 260 H Hemoglobin A1c Lactic Acid Calcium Phosphorus AST Alkaline Phosphatase NT-Pro-B Natriuret Pep Total Protein Albumin Crossmatch 10/19/18 Unknown WBC RBC Hgb Hct MCH RDW Lymph % (Auto) [place] % (Auto) Lymph # [place] # Baso # Seg Neutrophils % Seg Neuts % (Manual) Lymphocytes % (Manual) Seg Neutrophils # Seg Neutrophils # Man Lymphocytes # (Manual) PT INR APTT Heparin Anti-Xa Level 0.19 L POC ABG pH POC ABG pCO2 POC ABG pO2 Sodium Potassium Chloride Carbon Dioxide BUN Creatinine Glucose POC Glucose Hemoglobin A1c Lactic Acid Calcium Phosphorus AST Alkaline Phosphatase NT-Pro-B Natriuret Pep Total Protein Albumin Crossmatch Chest x-ray: report reviewed (MILD IMPROVEMENT IN BILATERAL INFILTRATES.), image reviewed Allied health notes reviewed: nursing
[2018-10-20] MEDS: HumaLOG SUB-Q SCH ×8 (00:25→17:42)
[2018-10-20 03:35] LABS: Basophils # (Auto) 0.1 K/mm3 (0.0-0.1); Basophils % (Auto) 0.9 % (0.0-1.8); Eosinophils # (Auto) 0.3 K/mm3 (0.0-0.4); Hematocrit 23.1 % (30.3-42.9); Hemoglobin 7.5 gm/dl (10.1-14.3); Lymphocytes # (Auto) 1.7 K/mm3 (1.2-5.4); Lymphocytes % (Auto) 11.5 % (13.4-35.0); Mean Corpuscular HGB Conc 33 % (30-34); Mean Corpuscular Volume 82 fl (79-97); Monocytes # (Auto) 0.9 K/mm3 (0.0-0.8); Monocytes % (Auto) 5.9 % (0.0-7.3); Platelet Count 358 K/mm3 (140-440); Red Blood Count 2.81 M/mm3 (3.65-5.03)
[2018-10-20 03:53] LABS: Calcium 7.8 mg/dL (8.4-10.2)
[2018-10-20 04:14] LABS: INR 1.29 (0.87-1.13)
[2018-10-20] MEDS ORDERED: NACL 0.9% 1000 ML 1,000 ML IV SCH (08:00)
[2018-10-20] MEDS: LASIX PO SCH (09:29)
[2018-10-20] MEDS: LOPRESSOR PO SCH ×3 (09:29→22:29)
[2018-10-20] MEDS: SODIUM CHLORIDE FLUSH SYRINGE 10 ML IV SCH ×2 (09:30→22:39)
[2018-10-20] MEDS: LANTUS SUB-Q SCH (09:32)
[2018-10-20] MEDS: PREVACID SOLUTAB FEEDTUBE SCH ×2 (10:12→22:29)
[2018-10-20] MEDS ORDERED: GOLYTELY PO ONE (10:22)
--- NOTE | 2018-10-20 10:31 | Gastroenterology Progress Note ---
<BRIGIDA JUAREZ - Last Filed: 10/20/18 10:26> Assessment and Plan 1.acute on chronic anemia -INR 1.29 (heparin drip currently on hold) -H/H 7.5/23.1 -continue to monitor H/H and transfuse as needed -no active sign of bleeding overnight or this am- no hemorrhage on CT -last EGD 08/05/2018 showed gastritis with mild self-limited oozing of blood but no high risk bleeding lesions -etiology unclear-likely multifactorial -given H/H continuing to trend down and need for chcf A/C, recommend evaluation with EGD/colonoscopy -will cancel procedures today and reschedule to tomorrow due to incomplete colon prep by patient overnight -resume heparin drip for now, then hold at 0500 in am -repeat INR in am prior to procedure -clear liquid diet today, then NPO after MN -continue PPI and supportive care -electrolyte management per primary team -will follow 2.sepsis/PNA 3.acute respiratory failure 5.acute on chronic systolic CHF 6.DM 7.ASHELY upon CKD 8.AMS 9.CAD (s/p CABG) 10.H/O mitral valve replacement with mechanical valve Subjective Date of service: 10/20/18 Principal diagnosis: anemia/GI bleed? Interval history: No acute distress or active signs of bleeding overnight or this am. Denies abd pain or N/V. Patient refused to complete colon prep overnight (only drank 1 cup). Re-discussed need for endoscopic evaluation of anemia given need for chcf A/C with patient to include purpose, benefits, and risks with patient agreeable to complete colon prep today and reschedule procedures for tomorrow. Objective - Constitutional Vitals: Temp Pulse Resp BP Pulse Ox 98.6 F 106 H 24 144/76 99 10/20/18 06:45 10/20/18 06:01 10/20/18 06:01 10/20/18 06:01 10/20/18 06:01 General appearance: no acute distress - Respiratory Respiratory: bilateral: diminished - Cardiovascular Rhythm: other (tachycardia) - Gastrointestinal General gastrointestinal: Present: soft, non-tender, non-distended, normal bowel sounds - Neurologic Neurological: alert and oriented x3 - Labs CBC & Chem 7: 10/20/18 03:00 10/20/18 03:00 Labs: Laboratory Results - last 24 hr 10/19/18 10/19/18 10/19/18 09:41 09:41 11:46 WBC RBC Hgb 8.1 L Hct 24.6 L MCV MCH MCHC RDW Plt Count 322 Lymph % (Auto) [place] % (Auto) Eos % (Auto) Baso % (Auto) Lymph # [place] # Eos # Baso # Seg Neutrophils % Seg Neutrophils # PT 17.7 H INR 1.36 H APTT 32.9 Heparin Anti-Xa Level POC ABG pH POC ABG pCO2 POC ABG pO2 POC ABG HCO3 POC ABG Total CO2 POC ABG O2 Sat POC ABG Base Excess FiO2 Sodium Potassium Chloride Carbon Dioxide Anion Gap BUN Creatinine Estimated GFR BUN/Creatinine Ratio Glucose POC Glucose 212 H Calcium 10/19/18 10/19/18 10/19/18 16:12 19:56 22:09 WBC RBC Hgb Hct MCV MCH MCHC RDW Plt Count Lymph % (Auto) [place] % (Auto) Eos % (Auto) Baso % (Auto) Lymph # [place] # Eos # Baso # Seg Neutrophils % Seg Neutrophils # PT INR APTT Heparin Anti-Xa Level POC ABG pH 7.458 H POC ABG pCO2 37.9 POC ABG pO2 63 L POC ABG HCO3 26.8 POC ABG Total CO2 28 POC ABG O2 Sat 93 POC ABG Base Excess 3 FiO2 2 Sodium Potassium Chloride Carbon Dioxide Anion Gap BUN Creatinine Estimated GFR BUN/Creatinine Ratio Glucose POC Glucose 260 H 216 H Calcium 10/19/18 10/20/18 10/20/18 Unknown 03:00 03:00 WBC 14.8 H RBC 2.81 L Hgb 7.5 L Hct 23.1 L MCV 82 MCH 27 L MCHC 33 RDW 20.0 H Plt Count 358 Lymph % (Auto) 11.5 L [place] % (Auto) 5.9 Eos % (Auto) 2.0 Baso % (Auto) 0.9 Lymph # 1.7 [place] # 0.9 H Eos # 0.3 Baso # 0.1 Seg Neutrophils % 79.7 H Seg Neutrophils # 11.8 H PT INR APTT Heparin Anti-Xa Level 0.19 L POC ABG pH POC ABG pCO2 POC ABG pO2 POC ABG HCO3 POC ABG Total CO2 POC ABG O2 Sat POC ABG Base Excess FiO2 Sodium 137 Potassium 3.8 Chloride 97.8 L Carbon Dioxide 28 Anion Gap 15 BUN 20 H Creatinine 1.5 H Estimated GFR 45 BUN/Creatinine Ratio 13 Glucose 206 H POC Glucose Calcium 7.8 L 10/20/18 10/20/18 03:00 06:59 WBC RBC Hgb Hct MCV MCH MCHC RDW Plt Count Lymph % (Auto) [place] % (Auto) Eos % (Auto) Baso % (Auto) Lymph # [place] # Eos # Baso # Seg Neutrophils % Seg Neutrophils # PT 16.9 H INR 1.29 H APTT Heparin Anti-Xa Level 0.24 L POC ABG pH POC ABG pCO2 POC ABG pO2 POC ABG HCO3 POC ABG Total CO2 POC ABG O2 Sat POC ABG Base Excess FiO2 Sodium Potassium Chloride Carbon Dioxide Anion Gap BUN Creatinine Estimated GFR BUN/Creatinine Ratio Glucose POC Glucose 348 H Calcium <EDWIGE CAMERON - Last Filed: 10/20/18 23:56> Assessment and Plan Patient seen and examined. I have reviewed the advanced practitioner's evaluation, assessment, and plan, and agree with them. I note the following additions: Patient didn't take her prep yesterday, so will have to reschedule for tomorrow. She still had barely drank any of the prep tonight when I rounded, I woke her up and explained she absolutely needed to drink the prep to have the procedure; she voiced understanding. PROCEDURE PLANNED FOR 11AM TOMORROW, PLEASE HOLD HEPARIN DRIP STARTING AT 5AM - Patient Problems (1) Acute respiratory failure Current Visit: Yes Status: Resolved (2) Heart failure with reduced ejection fraction Current Visit: Yes Status: Acute (3) Anemia Current Visit: Yes Status: Chronic (4) History of GI bleed Current Visit: Yes Status: Chronic Objective - Constitutional Vitals: Temp Pulse Resp BP Pulse Ox 99.2 F 90 12 124/72 99 10/20/18 17:03 10/20/18 17:03 10/20/18 17:03 10/20/18 17:03 10/20/18 19:51 - Labs CBC & Chem 7: 10/20/18 03:00 10/20/18 03:00 Labs: Laboratory Results - last 24 hr 10/19/18 10/19/18 10/20/18 19:56 22:09 03:00 WBC 14.8 H RBC 2.81 L Hgb 7.5 L Hct 23.1 L MCV 82 MCH 27 L MCHC 33 RDW 20.0 H Plt Count 358 Lymph % (Auto) 11.5 L [place] % (Auto) 5.9 Eos % (Auto) 2.0 Baso % (Auto) 0.9 Lymph # 1.7 [place] # 0.9 H Eos # 0.3 Baso # 0.1 Seg Neutrophils % 79.7 H Seg Neutrophils # 11.8 H PT INR Heparin Anti-Xa Level POC ABG pH 7.458 H POC ABG pCO2 37.9 POC ABG pO2 63 L POC ABG HCO3 26.8 POC ABG Total CO2 28 POC ABG O2 Sat 93 POC ABG Base Excess 3 FiO2 2 Sodium Potassium Chloride Carbon Dioxide Anion Gap BUN Creatinine Estimated GFR BUN/Creatinine Ratio Glucose POC Glucose 216 H Calcium 10/20/18 10/20/18 10/20/18 03:00 03:00 06:59 WBC RBC Hgb Hct MCV MCH MCHC RDW Plt Count Lymph % (Auto) [place] % (Auto) Eos % (Auto) Baso % (Auto) Lymph # [place] # Eos # Baso # Seg Neutrophils % Seg Neutrophils # PT 16.9 H INR 1.29 H Heparin Anti-Xa Level 0.24 L POC ABG pH POC ABG pCO2 POC ABG pO2 POC ABG HCO3 POC ABG Total CO2 POC ABG O2 Sat POC ABG Base Excess FiO2 Sodium 137 Potassium 3.8 Chloride 97.8 L Carbon Dioxide 28 Anion Gap 15 BUN 20 H Creatinine 1.5 H Estimated GFR 45 BUN/Creatinine Ratio 13 Glucose 206 H POC Glucose 348 H Calcium 7.8 L 10/20/18 10/20/18 10/20/18 10:20 10:59 16:15 WBC RBC Hgb Hct MCV MCH MCHC RDW Plt Count Lymph % (Auto) [place] % (Auto) Eos % (Auto) Baso % (Auto) Lymph # [place] # Eos # Baso # Seg Neutrophils % Seg Neutrophils # PT 15.5 H INR 1.16 H Heparin Anti-Xa Level < 0.10 L 0.24 L POC ABG pH POC ABG pCO2 POC ABG pO2 POC ABG HCO3 POC ABG Total CO2 POC ABG O2 Sat POC ABG Base Excess FiO2 Sodium Potassium Chloride Carbon Dioxide Anion Gap BUN Creatinine Estimated GFR BUN/Creatinine Ratio Glucose POC Glucose 227 H Calcium 10/20/18 17:14 WBC RBC Hgb Hct MCV MCH MCHC RDW Plt Count Lymph % (Auto) [place] % (Auto) Eos % (Auto) Baso % (Auto) Lymph # [place] # Eos # Baso # Seg Neutrophils % Seg Neutrophils # PT INR Heparin Anti-Xa Level POC ABG pH POC ABG pCO2 POC ABG pO2 POC ABG HCO3 POC ABG Total CO2 POC ABG O2 Sat POC ABG Base Excess FiO2 Sodium Potassium Chloride Carbon Dioxide Anion Gap BUN Creatinine Estimated GFR BUN/Creatinine Ratio Glucose POC Glucose 279 H Calcium
--- NOTE | 2018-10-20 10:58 | Progress Note ---
Assessment and Plan Endoscopy rescheduled to tomorrow due to incomplete colon prep by patient overnight. Resume heparin drip for now, then hold at 0500 in am per GI team. Currently stable cardiac status. Pt is at high cardiovascular risk for endoscopy in setting of multiple cardiac co-morbidities. However, there are no immediate cardiac contraindications to proceeding with endoscopy at this time. Cont PO lasix, lopressor. Consider ACEI/ARB if okay per nephrology. The patient has been seen in conjunction with Dr. Colmenares who agrees with the assessment and plan of care. - Patient Problems (1) Altered mental status Current Visit: Yes Status: Resolved (2) Seizures Current Visit: Yes Status: Suspected (3) Hypoglycemia Current Visit: Yes Status: Resolved (4) Acute respiratory failure Current Visit: Yes Status: Resolved (5) Pneumonia Current Visit: Yes Status: Suspected Qualifiers: Pneumonia type: due to unspecified organism Laterality: right Lung location: middle lobe of lung Qualified Code(s): J18.1 - Lobar pneumonia, unspecified organism (6) Sepsis Current Visit: Yes Status: Suspected Qualifiers: Sepsis type: sepsis due to unspecified organism Qualified Code(s): A41.9 - Sepsis, unspecified organism (7) CAD (coronary artery disease) Current Visit: Yes Status: Chronic (8) History of coronary artery bypass graft Current Visit: Yes Status: Chronic (9) H/O mitral valve replacement with mechanical valve Current Visit: Yes Status: Chronic (10) Heart failure with reduced ejection fraction Current Visit: Yes Status: Acute (11) Acute on chronic renal failure Current Visit: Yes Status: Acute (12) Anemia Current Visit: Yes Status: Chronic (13) History of GI bleed Current Visit: Yes Status: Chronic (14) Diabetes Current Visit: Yes Status: Chronic Subjective Date of service: 10/20/18 Principal diagnosis: anemia/GI bleed? Interval history: pt resting in bed, no current cardiac complaints. She was unable to drink bowel prep for endoscopy today, she had n/v overnight. Objective Last Vital Signs Temp 98.6 F 10/20/18 06:45 Pulse 106 H 10/20/18 06:01 Resp 24 10/20/18 06:01 BP 144/76 10/20/18 06:01 Pulse Ox 99 10/20/18 06:01 - Physical Examination General: No Apparent Distress HEENT: Positive: PERRL Neck: Positive: neck supple Cardiac: Positive: Reg Rate and Rhythm, S1/S2 Lungs: Positive: Decreased Breath Sounds Neuro: Positive: Grossly Intact Abdomen: Negative: Tender Skin: Negative: Rash Extremities: Absent: edema - Labs and Meds Coagulation 10/20/18 Range/Units 03:00 PT 16.9 H (12.2-14.9) Sec. INR 1.29 H (0.87-1.13) CBC 10/20/18 Range/Units 03:00 WBC 14.8 H (4.5-11.0) K/mm3 RBC 2.81 L (3.65-5.03) M/mm3 Hgb 7.5 L (10.1-14.3) gm/dl Hct 23.1 L (30.3-42.9) % Plt Count 358 (140-440) K/mm3 Lymph # 1.7 (1.2-5.4) K/mm3 Andrew # 0.9 H (0.0-0.8) K/mm3 Eos # 0.3 (0.0-0.4) K/mm3 Baso # 0.1 (0.0-0.1) K/mm3 Comprehensive Metabolic Panel 10/20/18 Range/Units 03:00 Sodium 137 (137-145) mmol/L Potassium 3.8 (3.6-5.0) mmol/L Chloride 97.8 L (98-107) mmol/L Carbon Dioxide 28 (22-30) mmol/L BUN 20 H (7-17) mg/dL Creatinine 1.5 H (0.7-1.2) mg/dL Glucose 206 H (65-100) mg/dL Calcium 7.8 L (8.4-10.2) mg/dL - Imaging and Cardiology EKG: report reviewed, image reviewed Echo: report reviewed (07/2018: EF 40%, mild to mod LVH, LA and RA dilated, mod TR and LA, mechanical valve in mitral position that appears to be functioning properly. 10/2018: EF 35-40%, mod LVH, abnormal diastolic function, LA severely dilated, mechanical MV appears well seated with normal function, mod pulm HTN. 11/2016 showed EF 40-45%, abnormal diastolic function, trace MR, mild TR, RVSP 36mmHg. ) - EKG Sinus rhythms and dysrhythmias: sinus rhythm Chamber hypertrophy or enlargement: left ventricular hypertro - Allied health notes Allied health notes reviewed: nursing
--- NOTE | 2018-10-20 11:16 | Progress Note ---
Assessment and Plan Assessment and plan: 48 year old woman with history of coronary artery disease, status post cabbage, diabetes, hypertension who was brought to the emergency room for altered mental status. She was found to have hypoglycemia, she was also having convulsions at the time of admission. The patient was intubated, sp dextrose she was put on the ventilator she was found to have pneumonia and CHF flare and started on antibiotics. patient has history of MV replacement and was on anticoagulation. Pneumonia, severe sepsis - Patient was on IV antibiotics and completed on 10/13 per ID Acute hypoxic respiratory failure on MV >96 hrs Was intubated and on mechanical ventilation - patient was extubated on 10/13 -Weaned to room air on 10/19 status epilepticus; Seizures when most likely due to hypoglycemia -Treated with dextrose -, neurology consult appreciated Acute on chronic systolic CHF EF 40%, dilated ventricles -cardiology consult appreciated, sp lasix, now on PO lasix [facility]/hypercoaguable state/coagulopathy due to warfarin INR subtherapeutic, on heparin ggt -very sensitive to warfain and gets supratherapeutic very quickly after a few doses, hematology consulted, will be restarted on low dose Severe anemia sp-transfusion, Gi workup planned for scope tomorrow, she had poor prep overnight, we'll prep again 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, treated as type 1, uncontrolled, a1c 10.2 Continue insulins judiciously, brittle DM with episodes of hypoglycemia and hyperglycemia, labile glc Mazin upon ckd stage 3, vasomotor nephropathy and likely ATN from sepsis Nephrology input appreciated, avoid nephrotoxins, neph signed off on 10/15 hypernatremia resolved after she received hypotonic ivf Hyperkalemia resolved with insulin and diuretics htn urgency; optimized bp meds Marijuana abuse; was counseled, preventive health counseling, done 17 mins spent dvt ppx- chemical, History Interval history: Review of systems Constitutional: No fevers, no malaise, no joint pains CVS: No chest pain, no pedal edema, sob is resolved GI:no hematemesis, blood in stool or melena, No abdominal pain, no diarrhea, no vomiting, no constipation Respiratory: No cough or wheezing Hospitalist Physical - Physical exam Narrative exam: General.: appears well HEENT: Moist mucous membranes, extraocular muscles intact, no lymphadenopathy Neck: supple Cardiac: S1-S2 heard Lungs: Clear to auscultation Abdomen: soft , nontender, nondistended, bowel sounds positive Extremities: no edema clubbing or cyanosis Skin: no rash or lesions Neurologic: no focal deficit Psych: calm and cooperative - Constitutional Vitals: Temp Pulse Resp BP Pulse Ox 98.6 F 106 H 24 144/76 99 10/20/18 06:45 10/20/18 06:01 10/20/18 06:01 10/20/18 06:01 10/20/18 06:01 General appearance: Present: other (intubated, eyes open, no purposeful response to commands) Results - Labs CBC & Chem 7: 10/20/18 03:00 10/20/18 03:00 Labs: Laboratory Last Values WBC 14.8 K/mm3 (4.5-11.0) H 10/20/18 03:00 RBC 2.81 M/mm3 (3.65-5.03) L 10/20/18 03:00 Hgb 7.5 gm/dl (10.1-14.3) L 10/20/18 03:00 Hct 23.1 % (30.3-42.9) L 10/20/18 03:00 MCV 82 fl (79-97) 10/20/18 03:00 MCH 27 pg (28-32) L 10/20/18 03:00 MCHC 33 % (30-34) 10/20/18 03:00 RDW 20.0 % (13.2-15.2) H 10/20/18 03:00 Plt Count 358 K/mm3 (140-440) 10/20/18 03:00 Lymph % (Auto) 11.5 % (13.4-35.0) L 10/20/18 03:00 [place] % (Auto) 5.9 % (0.0-7.3) 10/20/18 03:00 Eos % (Auto) 2.0 % (0.0-4.3) 10/20/18 03:00 Baso % (Auto) 0.9 % (0.0-1.8) 10/20/18 03:00 Lymph # 1.7 K/mm3 (1.2-5.4) 10/20/18 03:00 [place] # 0.9 K/mm3 (0.0-0.8) H 10/20/18 03:00 Eos # 0.3 K/mm3 (0.0-0.4) 10/20/18 03:00 Baso # 0.1 K/mm3 (0.0-0.1) 10/20/18 03:00 Add Manual Diff Complete 10/17/18 05:00 Total Counted 100 10/17/18 05:00 Seg Neutrophils % 79.7 % (40.0-70.0) H 10/20/18 03:00 Seg Neuts % (Manual) 87.0 % (40.0-70.0) H 10/17/18 05:00 0 % 10/17/18 05:00 9.0 % (13.4-35.0) L 10/17/18 05:00 Reactive Lymphs % (Man) 0 % 10/17/18 05:00 2.0 % (0.0-7.3) 10/17/18 05:00 2.0 % (0.0-4.3) 10/17/18 05:00 0 % (0.0-1.8) 10/17/18 05:00 0 % 10/17/18 05:00 0 % 10/17/18 05:00 0 % 10/17/18 05:00 0 % 10/17/18 05:00 Nucleated RBC % Not Reportable 10/17/18 05:00 Seg Neutrophils # 11.8 K/mm3 (1.8-7.7) H 10/20/18 03:00 Seg Neutrophils # Man 10.1 K/mm3 (1.8-7.7) H 10/17/18 05:00 Band Neutrophils # 0.0 K/mm3 10/17/18 05:00 1.0 K/mm3 (1.2-5.4) L 10/17/18 05:00 Abs React Lymphs (Man) 0.0 K/mm3 10/17/18 05:00 0.2 K/mm3 (0.0-0.8) 10/17/18 05:00 0.2 K/mm3 (0.0-0.4) 10/17/18 05:00 0.0 K/mm3 (0.0-0.1) 10/17/18 05:00 0.0 K/mm3 10/17/18 05:00 0.0 K/mm3 10/17/18 05:00 0.0 K/mm3 10/17/18 05:00 Blast Cells # 0.0 K/mm3 10/17/18 05:00 WBC Morphology Not Reportable 10/17/18 05:00 Hypersegmented Neuts Not Reportable 10/17/18 05:00 Hyposegmented Neuts Not Reportable 10/17/18 05:00 Hypogranular Neuts Not Reportable 10/17/18 05:00 Not Reportable 10/17/18 05:00 Not Reportable 10/17/18 05:00 Not Reportable 10/17/18 05:00 Not Reportable 10/17/18 05:00 Not Reportable 10/17/18 05:00 Not Reportable 10/17/18 05:00 Consistent w auto 10/17/18 05:00 Not Reportable 10/17/18 05:00 Plt Clumps, EDTA Not Reportable 10/17/18 05:00 Not Reportable 10/17/18 05:00 Not Reportable 10/17/18 05:00 Not Reportable 10/17/18 05:00 Plt Morphology Comment Not Reportable 10/17/18 05:00 RBC Morphology Not Reportable 10/17/18 05:00 Dimorphic RBCs Not Reportable 10/17/18 05:00 Not Reportable 10/17/18 05:00 1+ 10/17/18 05:00 Few 10/17/18 05:00 1+ 10/17/18 05:00 Not Reportable 10/17/18 05:00 Rare 10/17/18 05:00 Not Reportable 10/17/18 05:00 Not Reportable 10/17/18 05:00 Not Reportable 10/17/18 05:00 Not Reportable 10/17/18 05:00 Not Reportable 10/17/18 05:00 Not Reportable 10/17/18 05:00 Not Reportable 10/17/18 05:00 Not Reportable 10/17/18 05:00 Not Reportable 10/17/18 05:00 Not Reportable 10/17/18 05:00 Not Reportable 10/17/18 05:00 Not Reportable 10/17/18 05:00 Not Reportable 10/17/18 05:00 Acanthocytes (Spur) Not Reportable 10/17/18 05:00 Rouleaux Not Reportable 10/17/18 05:00 Not Reportable 10/17/18 05:00 Not Reportable 10/17/18 05:00 Not Reportable 10/17/18 05:00 Not Reportable 10/17/18 05:00 Hem Pathologist Commnt No 10/17/18 05:00 PT 16.9 Sec. (12.2-14.9) H 10/20/18 03:00 INR 1.29 (0.87-1.13) H 10/20/18 03:00 APTT 32.9 Sec. (24.2-36.6) 10/19/18 09:41 Heparin Anti-Xa Level 0.24 U.I./ml (0.3-0.7) L 10/20/18 03:00 POC ABG pH 7.458 (7.35-7.45) H 10/19/18 19:56 POC ABG pCO2 37.9 (35-45) 10/19/18 19:56 POC ABG pO2 63 (80-105) L 10/19/18 19:56 POC ABG HCO3 26.8 (22-26 mml/L) 10/19/18 19:56 POC ABG Total CO2 28 (23-27mmol/L) 10/19/18 19:56 POC ABG O2 Sat 93 10/19/18 19:56 POC ABG Base Excess 3 ((-2) - (+3)mmol/L) 10/19/18 19:56 2 % 10/19/18 19:56 Sodium 137 mmol/L (137-145) 10/20/18 03:00 Potassium 3.8 mmol/L (3.6-5.0) 10/20/18 03:00 Chloride 97.8 mmol/L (98-107) L 10/20/18 03:00 Carbon Dioxide 28 mmol/L (22-30) 10/20/18 03:00 15 mmol/L 10/20/18 03:00 BUN 20 mg/dL (7-17) H 10/20/18 03:00 1.5 mg/dL (0.7-1.2) H 10/20/18 03:00 Estimated GFR 45 ml/min 10/20/18 03:00 13 % 10/20/18 03:00 Glucose 206 mg/dL (65-100) H 10/20/18 03:00 POC Glucose 227 (70-105) H 10/20/18 10:59 10.2 % (4-6) H 10/07/18 22:08 Lactic Acid 1.50 mmol/L (0.7-2.0) 10/08/18 17:09 Calcium 7.8 mg/dL (8.4-10.2) L 10/20/18 03:00 Phosphorus 7.40 mg/dL (2.5-4.5) H 10/07/18 22:08 Magnesium 1.70 mg/dL (1.7-2.3) 10/18/18 20:20 0.60 mg/dL (0.1-1.2) 10/17/18 05:00 < 0.2 mg/dL (0-0.2) 10/17/18 05:00 0.4 mg/dL 10/17/18 05:00 AST 14 units/L (5-40) 10/17/18 05:00 ALT 8 units/L (7-56) 10/17/18 05:00 104 units/L (35-129) 10/17/18 05:00 40.0 umol/L (25-60) 10/07/18 02:43 < 0.010 ng/mL (0.00-0.029) 10/07/18 08:59 0.20 mg/dL (0.00-1.30) 10/07/18 14:55 NT-Pro-B Natriuret Pep 2865 pg/mL (0-450) H 10/09/18 03:20 5.4 g/dL (6.3-8.2) L 10/17/18 05:00 2.2 g/dL (3.9-5) L 10/17/18 05:00 0.7 % 10/17/18 05:00 Straw (Yellow) 10/07/18 02:34 Clear (Clear) 10/07/18 02:34 7.0 (5.0-7.0) 10/07/18 02:34 Ur Specific [place] 1.006 (1.003-1.030) 10/07/18 02:34 100 mg/dl mg/dL (Negative) 10/07/18 02:34 Neg mg/dL (Negative) 10/07/18 02:34 Neg mg/dL (Negative) 10/07/18 02:34 Sm (Negative) 10/07/18 02:34 Neg (Negative) 10/07/18 02:34 Neg (Negative) 10/07/18 02:34 < 2.0 mg/dL (<2.0) 10/07/18 02:34 Ur Leukocyte Esterase Tr (Negative) 10/07/18 02:34 1.0 /HPF (0.0-6.0) 10/07/18 02:34 5.0 /HPF (0.0-6.0) 10/07/18 02:34 U Epithel Cells (Auto) 1.0 /HPF (0-13.0) 10/07/18 02:34 Hyaline Casts 3 /LPF 10/07/18 02:34 Few /HPF 10/07/18 02:34 Presumptive negative 10/07/18 02:34 Presumptive negative 10/07/18 02:34 Ur Barbiturates Screen Presumptive negative 10/07/18 02:34 Ur Phencyclidine Scrn Presumptive negative 10/07/18 02:34 Ur Amphetamines Screen Presumptive negative 10/07/18 02:34 U Benzodiazepines Scrn Presumptive negative 10/07/18 02:34 Presumptive negative 10/07/18 02:34 U Marijuana (THC) Screen Presumptive positive 10/07/18 02:34 Disclamer 10/07/18 02:34 Blood Type O POSITIVE 10/15/18 10:27 Antibody Screen Negative 10/15/18 10:27 Crossmatch See Detail 10/15/18 10:27 Active Medications - Current Medications Current Medications: Generic Name Dose Route Start Last Admin Trade Name Freq PRN Reason Stop Dose Admin Acetaminophen 650 mg 10/07/18 04:59 10/18/18 18:40 Tylenol PO 650 mg Q4H PRN Administration Pain MILD(1-3)/Fever >100.5/RODRIGUEZ Lipase/Protease/Amylase 1 each 10/08/18 10:00 Pancreaze 10,500 Unit FEEDTUBE PRN PRN For Clogged Feeding Tube Dextrose 50 ml 10/07/18 20:42 10/10/18 05:46 D50w (25gm) Syringe IV 50 ml PRN PRN Administration Hypoglycemia Furosemide 40 mg 10/19/18 11:00 10/20/18 09:29 Lasix PO 40 mg QDAY ULI Administration Hydralazine HCl 10 mg 10/07/18 05:07 10/14/18 08:35 Apresoline IV 10 mg Q4H PRN Administration Blood Pressure Hydrophilic Ointment 1 applic 10/07/18 02:40 Vaseline Lip Therapy TP Q2HR PRN Dry Lips Heparin Sodium/Sodium Chloride 25,000 unit in 500 mls @ 15 mls/hr 10/19/18 10:00 10/20/18 10:27 Heparin/ 0.45% Nacl-25,000 Unit/500 Ml IV 850 units/hr TITR ULI 17 mls/hr Titration Protocol 750 UNITS/HR Sodium Chloride 1,000 mls @ 50 mls/hr 10/20/18 08:00 10/20/18 09:28 Nacl 0.9% 1000 Ml IV 50 mls/hr DIRECT ULI Administration Insulin Glargine 5 units 10/12/18 12:00 10/20/18 09:32 Lantus SUB-Q 5 units DAILY ULI Administration Insulin Human Lispro 0 unit 10/09/18 00:00 10/20/18 08:01 Humalog SUB-Q 2 unit Q6HR ULI Administration Protocol Insulin Human Lispro 6 unit 10/19/18 16:49 10/20/18 09:22 Humalog SUB-Q Not Given AC ULI Lansoprazole 30 mg 10/16/18 22:00 10/20/18 10:12 Prevacid Solutab FEEDTUBE 30 mg BID ULI Administration Metoclopramide HCl 10 mg 10/11/18 13:00 10/12/18 19:32 Reglan IV 10 mg Q6HR PRN Administration Nausea And Vomiting Metoprolol Tartrate 50 mg 10/14/18 08:40 10/20/18 09:29 Lopressor PO 50 mg TID ULI Administration Multi-Ingred Cream/Lotion/Oil/Oint 1 applic 10/07/18 02:40 Artificial Tears Ophth Oint OU Q4HR PRN Dry Eye(s) Ondansetron HCl 4 mg 10/07/18 04:59 Zofran IV Q8H PRN N/V unrelieved by Reglan Quetiapine Fumarate 100 mg 10/09/18 22:00 10/19/18 21:13 Seroquel PO 100 mg QHS ULI Administration Simple Syrup 15 ml 10/08/18 10:00 Simple Syrup FEEDTUBE PRN PRN Hypoglycemia Simple Syrup 30 ml 10/08/18 10:00 10/09/18 01:09 Simple Syrup FEEDTUBE 30 ml PRN PRN Administration Hypoglycemia Sodium Bicarbonate 325 mg 10/08/18 10:00 Sodium Bicarbonate FEEDTUBE PRN PRN For Clogged Feeding Tube Sodium Chloride 10 ml 10/07/18 10:00 10/20/18 09:30 Sodium Chloride Flush Syringe 10 Ml IV 10 ml BID ULI Administration Sodium Chloride 10 ml 10/07/18 04:59 10/18/18 07:15 Sodium Chloride Flush Syringe 10 Ml IV 10 ml PRN PRN Administration LINE FLUSH Nutrition/Malnutrition Assess - Dietary Evaluation Nutrition/Malnutrition Findings: Nutrition Notes Start: 10/07/18 12:17 Freq: Status: Active Protocol: Document 10/18/18 10:18 CP (Rec: 10/18/18 10:25 CP [id number]) Co-Sign 10/18/18 10:18 LP Nutrition Notes Initial or Follow up Reassessment Current Diagnosis CKD (stage V CKD),Diabetes, Hypertension,Heart Failure Current Diet Cardiac diet Labs/Tests K 3.5 BG 115 Pertinent Medications Lasix Humalog Height 5 ft 2 in Weight 54.1 kg Omega Body Weight (kg) 50.00 BMI 21.8 Subjective/Other Information F/U for PO tolerance, diet advancement, need for DNI education. Pt appeared to be half-awake during time of visit. Observed uneaten tray by bedside. When asked if she wanted an ONS, the pt nodded her head. Per RN note, pt ate 100% of her dinner last night. Pt is not on coumadin medication currently. Percent of energy/protein needs met: 0%/0% Burn Absent Trauma Absent #1 Nutrition Diagnosis Inadequate oral intake Diagnosis Progress(for reassessment Continues documentation) Is patient on ventilator? No Is Patient Ambulatory and/or Out of Bed No REE-(Sagle-St. Jeor-confined to bed) 9587.156 Calculation Used for Recommendations Sagle-St Jeor Additional Notes Pro needs 0.8-1g/k-54g/ day Fluid needs 1ml/kcal Nutrition Intervention Change Diet Order: Continue current or per MD request Goal #1 PO tolerance Goal #2 PO intake to meet at least 75% of energy and protein needs Goal #3 Improved BG control Follow-Up By: 10/21/18 Additional Comments F/U: PO tolerance, diet advancement
[2018-10-20 11:34] LABS: INR 1.16 (0.87-1.13)
[2018-10-20] MEDS: TYLENOL PO PRN (12:56)
--- NOTE | 2018-10-20 14:33 | Progress Note ---
Assessment and Plan Acute hypoxemic respiratory failure, on mechanical ventilatory support. Symptomatic hypoglycemia. Seizures, possibly related to the hypoglycemia. Acute encephalopathy, toxic metabolic. Mild Hyponatremia Mechanical heart valve (mitral) History of cardiomyopathy. (EF 40%) Right pleural effusion. Pulmonary edema bilateral. History of diabetes. Hypertension. Coagulopathy that is probably related to her Coumadin use at home. - continue holding anticoagulation for now - continue BIPAP qhs - continue metoprolol for tachycardia - cardiology evaluation ongoing (input appreciated) - G.I. evaluation ongoing - optimize cardiac function per cardiology team - s/p AB's course - continue bronchodilators with pulmonary hygiene per RT - continue GI prophylaxis - continue to wean supplemental oxygen to keep O2 sats > 90% - Continue cardioprotective measures - Replete electrolytes as indicated - Monitor renal indices closely - Avoid nephrotoxic agents, adjust all medications for CrCL - contiinue strict intake and output monitoring - advance diet per ST - Accuchecks with glycemic control. Target glucose of 140-180 mg/dL - Maintenance of sleep -wake cycle - Mobility as tolerated by hemodynamics - Influenza and pneumonia vaccination per protocol CODE STATUS: FULL CODE Subjective Date of service: 10/20/18 Principal diagnosis: Ac hypoxemic resp failure; Seizures (?hypoglycemic); Ac encephalopathy(T/M) Interval history: Patient is seen today for: Acute hypoxemic respiratory failure, on mechanical ventilatory support; Symptomatic hypoglycemia; Seizures, possibly related to the hypoglycemia; Acute encephalopathy, toxic metabolic; Mild Hyponatremi; History of cardiomyopathy. (EF 40%) Seen and examined at bedside; 24hour events reviewed; nursing and respiratory care staff consulted; no adverse overnight events reported to me; resting peacefully in bed; remains on supplemental oxygen; denies acute chest pains or palpitations; No N/V/F/C Objective Vital Signs - 12hr 10/20/18 10/20/18 10/20/18 06:01 06:45 09:28 Temperature 100.2 F H 98.6 F Pulse Rate 106 H 107 H Respiratory 24 18 Rate Blood Pressure 144/76 118/72 O2 Sat by Pulse 99 96 Oximetry 10/20/18 10/20/18 11:27 13:01 Temperature 101.3 F H Pulse Rate 95 H Respiratory 12 Rate Blood Pressure 113/65 122/74 O2 Sat by Pulse 89 Oximetry Constitutional: no acute distress, other (middle aged AAF, normocephalic and with mildly increased resp effort at rest) Eyes: non-icteric ENT: oropharynx moist, other (extubated) Neck: supple, no lymphadenopathy, no JVD, other (mallampati 2) Effort: mildly labored Ascultation: Bilateral: diminished breath sounds (bases), rales Percussion: Right: dull (base), Bilateral: not dull Cardiovascular: regular rate and rhythm, other (+ metalic valve click) Gastrointestinal: normoactive bowel sounds, soft, non-tender, non-distended, other (No HSM) Integumentary: normal Extremities: no cyanosis, no edema, pulses normal, no ischemia or petechiae Neurologic: non-focal exam (grossly), pupils equal and round, CN II-XII normal, motor strength normal and, other (somnolent) Psychiatric: mood appropriate, affect normal CBC and BMP: 10/30/18 05:04 10/29/18 15:19 ABG, PT/INR, D-dimer: ABG POC ABG pH 7.458 (7.35-7.45) H 10/19/18 19:56 POC ABG pCO2 37.9 (35-45) 10/19/18 19:56 POC ABG pO2 63 (80-105) L 10/19/18 19:56 POC ABG HCO3 26.8 (22-26 mml/L) 10/19/18 19:56 POC ABG Total CO2 28 (23-27mmol/L) 10/19/18 19:56 POC ABG O2 Sat 93 10/19/18 19:56 PT/INR, D-dimer PT 15.5 Sec. (12.2-14.9) H 10/20/18 10:20 INR 1.16 (0.87-1.13) H 10/20/18 10:20 Abnormal lab findings: Abnormal Labs 10/07/18 10/07/18 10/07/18 02:20 02:43 02:43 WBC RBC Hgb Hct MCH 25 L RDW 21.5 H Lymph % (Auto) [place] % (Auto) Lymph # 0.9 L [place] # Baso # Seg Neutrophils % 78.4 H Seg Neuts % (Manual) Lymphocytes % (Manual) Seg Neutrophils # Seg Neutrophils # Man Lymphocytes # (Manual) PT INR APTT Heparin Anti-Xa Level POC ABG pH POC ABG pCO2 POC ABG pO2 Sodium Potassium Chloride 108.0 H Carbon Dioxide 21 L BUN Creatinine 1.5 H Glucose 115 H POC Glucose 136 H Hemoglobin A1c Lactic Acid Calcium Phosphorus AST 51 H Alkaline Phosphatase 257 H NT-Pro-B Natriuret Pep Total Protein Albumin Crossmatch 10/07/18 10/07/18 10/07/18 02:43 04:32 05:12 WBC RBC Hgb Hct MCH RDW Lymph % (Auto) [place] % (Auto) Lymph # [place] # Baso # Seg Neutrophils % Seg Neuts % (Manual) Lymphocytes % (Manual) Seg Neutrophils # Seg Neutrophils # Man Lymphocytes # (Manual) PT 25.4 H INR 2.14 H APTT Heparin Anti-Xa Level POC ABG pH POC ABG pCO2 33.6 L POC ABG pO2 69 L Sodium Potassium Chloride Carbon Dioxide BUN Creatinine Glucose POC Glucose Hemoglobin A1c Lactic Acid 2.40 H* Calcium Phosphorus AST Alkaline Phosphatase NT-Pro-B Natriuret Pep Total Protein Albumin Crossmatch 10/07/18 10/07/18 10/07/18 06:28 18:39 20:26 WBC RBC Hgb Hct MCH RDW Lymph % (Auto) [place] % (Auto) Lymph # [place] # Baso # Seg Neutrophils % Seg Neuts % (Manual) Lymphocytes % (Manual) Seg Neutrophils # Seg Neutrophils # Man Lymphocytes # (Manual) PT INR APTT Heparin Anti-Xa Level POC ABG pH POC ABG pCO2 POC ABG pO2 Sodium Potassium Chloride Carbon Dioxide BUN Creatinine Glucose POC Glucose 164 H 440 H > 500 H Hemoglobin A1c Lactic Acid Calcium Phosphorus AST Alkaline Phosphatase NT-Pro-B Natriuret Pep Total Protein Albumin Crossmatch 10/07/18 10/07/18 10/07/18 20:28 21:53 22:08 WBC RBC Hgb Hct MCH RDW Lymph % (Auto) [place] % (Auto) Lymph # [place] # Baso # Seg Neutrophils % Seg Neuts % (Manual) Lymphocytes % (Manual) Seg Neutrophils # Seg Neutrophils # Man Lymphocytes # (Manual) PT INR APTT Heparin Anti-Xa Level POC ABG pH POC ABG pCO2 POC ABG pO2 Sodium 136 L D Potassium 6.4 H* D Chloride Carbon Dioxide 10 L D BUN 30 H Creatinine 2.0 H Glucose 544 H* POC Glucose 483 H > 500 H Hemoglobin A1c Lactic Acid Calcium 7.0 L D Phosphorus AST Alkaline Phosphatase NT-Pro-B Natriuret Pep Total Protein Albumin Crossmatch 10/07/18 10/07/18 10/07/18 22:08 22:08 22:56 WBC RBC Hgb Hct MCH RDW Lymph % (Auto) [place] % (Auto) Lymph # [place] # Baso # Seg Neutrophils % Seg Neuts % (Manual) Lymphocytes % (Manual) Seg Neutrophils # Seg Neutrophils # Man Lymphocytes # (Manual) PT INR APTT Heparin Anti-Xa Level POC ABG pH POC ABG pCO2 POC ABG pO2 Sodium Potassium Chloride Carbon Dioxide BUN Creatinine Glucose POC Glucose 462 H Hemoglobin A1c 10.2 H Lactic Acid Calcium Phosphorus 7.40 H AST Alkaline Phosphatase NT-Pro-B Natriuret Pep Total Protein Albumin Crossmatch 10/07/18 10/08/18 10/08/18 23:39 00:58 02:09 WBC RBC Hgb Hct MCH RDW Lymph % (Auto) [place] % (Auto) Lymph # [place] # Baso # Seg Neutrophils % Seg Neuts % (Manual) Lymphocytes % (Manual) Seg Neutrophils # Seg Neutrophils # Man Lymphocytes # (Manual) PT INR APTT Heparin Anti-Xa Level POC ABG pH POC ABG pCO2 POC ABG pO2 Sodium Potassium Chloride Carbon Dioxide BUN Creatinine Glucose POC Glucose 396 H 375 H 285 H Hemoglobin A1c Lactic Acid Calcium Phosphorus AST Alkaline Phosphatase NT-Pro-B Natriuret Pep Total Protein Albumin Crossmatch 10/08/18 10/08/18 10/08/18 03:10 03:33 04:05 WBC RBC Hgb Hct MCH RDW Lymph % (Auto) [place] % (Auto) Lymph # [place] # Baso # Seg Neutrophils % Seg Neuts % (Manual) Lymphocytes % (Manual) Seg Neutrophils # Seg Neutrophils # Man Lymphocytes # (Manual) PT INR APTT Heparin Anti-Xa Level POC ABG pH 7.243 L POC ABG pCO2 33.8 L POC ABG pO2 126 H Sodium Potassium 5.3 H Chloride 110.7 H Carbon Dioxide 14 L BUN 33 H Creatinine 2.2 H Glucose 193 H POC Glucose 251 H Hemoglobin A1c Lactic Acid Calcium 7.0 L Phosphorus AST Alkaline Phosphatase 155 H NT-Pro-B Natriuret Pep Total Protein 5.2 L D Albumin 2.6 L Crossmatch 10/08/18 10/08/18 10/08/18 04:05 04:05 04:09 WBC 11.8 H RBC 3.32 L Hgb 8.3 L Hct 27.5 L D MCH 25 L RDW 22.0 H Lymph % (Auto) 6.8 L [place] % (Auto) 12.0 H Lymph # 0.8 L [place] # 1.4 H Baso # Seg Neutrophils % 80.6 H Seg Neuts % (Manual) Lymphocytes % (Manual) Seg Neutrophils # 9.5 H Seg Neutrophils # Man Lymphocytes # (Manual) PT INR APTT Heparin Anti-Xa Level POC ABG pH POC ABG pCO2 POC ABG pO2 Sodium Potassium Chloride Carbon Dioxide BUN Creatinine Glucose POC Glucose 175 H Hemoglobin A1c Lactic Acid 3.70 H* Calcium Phosphorus AST Alkaline Phosphatase NT-Pro-B Natriuret Pep Total Protein Albumin Crossmatch 10/08/18 10/08/18 10/08/18 05:07 06:05 07:14 WBC RBC Hgb Hct MCH RDW Lymph % (Auto) [place] % (Auto) Lymph # [place] # Baso # Seg Neutrophils % Seg Neuts % (Manual) Lymphocytes % (Manual) Seg Neutrophils # Seg Neutrophils # Man Lymphocytes # (Manual) PT INR APTT Heparin Anti-Xa Level POC ABG pH POC ABG pCO2 POC ABG pO2 Sodium Potassium Chloride Carbon Dioxide BUN Creatinine Glucose POC Glucose 125 H 122 H 147 H Hemoglobin A1c Lactic Acid Calcium Phosphorus AST Alkaline Phosphatase NT-Pro-B Natriuret Pep Total Protein Albumin Crossmatch 10/08/18 10/08/18 10/08/18 07:22 08:09 08:47 WBC RBC Hgb Hct MCH RDW Lymph % (Auto) [place] % (Auto) Lymph # [place] # Baso # Seg Neutrophils % Seg Neuts % (Manual) Lymphocytes % (Manual) Seg Neutrophils # Seg Neutrophils # Man Lymphocytes # (Manual) PT INR APTT Heparin Anti-Xa Level POC ABG pH POC ABG pCO2 POC ABG pO2 Sodium Potassium 5.2 H Chloride 112.4 H Carbon Dioxide 17 L BUN 32 H Creatinine 2.1 H Glucose 148 H POC Glucose 134 H 148 H Hemoglobin A1c Lactic Acid Calcium 6.6 L Phosphorus AST Alkaline Phosphatase NT-Pro-B Natriuret Pep Total Protein Albumin Crossmatch 10/08/18 10/08/18 10/08/18 10:21 13:29 14:21 WBC RBC Hgb Hct MCH RDW Lymph % (Auto) [place] % (Auto) Lymph # [place] # Baso # Seg Neutrophils % Seg Neuts % (Manual) Lymphocytes % (Manual) Seg Neutrophils # Seg Neutrophils # Man Lymphocytes # (Manual) PT INR APTT Heparin Anti-Xa Level POC ABG pH POC ABG pCO2 POC ABG pO2 Sodium Potassium Chloride Carbon Dioxide BUN Creatinine Glucose POC Glucose 115 H 109 H 118 H Hemoglobin A1c Lactic Acid Calcium Phosphorus AST Alkaline Phosphatase NT-Pro-B Natriuret Pep Total Protein Albumin Crossmatch 10/08/18 10/08/18 10/08/18 15:27 17:00 17:00 WBC 11.3 H RBC 3.21 L Hgb 7.9 L Hct 25.7 L MCH 25 L RDW 21.8 H Lymph % (Auto) 8.5 L [place] % (Auto) 7.7 H Lymph # 1.0 L [place] # 0.9 H Baso # Seg Neutrophils % 82.8 H Seg Neuts % (Manual) Lymphocytes % (Manual) Seg Neutrophils # 9.3 H Seg Neutrophils # Man Lymphocytes # (Manual) PT INR APTT Heparin Anti-Xa Level POC ABG pH POC ABG pCO2 POC ABG pO2 Sodium Potassium Chloride Carbon Dioxide BUN Creatinine Glucose POC Glucose 129 H Hemoglobin A1c Lactic Acid Calcium Phosphorus AST Alkaline Phosphatase NT-Pro-B Natriuret Pep 3097 H Total Protein Albumin Crossmatch 10/08/18 10/08/18 10/08/18 17:07 17:12 18:22 WBC RBC Hgb Hct MCH RDW Lymph % (Auto) [place] % (Auto) Lymph # [place] # Baso # Seg Neutrophils % Seg Neuts % (Manual) Lymphocytes % (Manual) Seg Neutrophils # Seg Neutrophils # Man Lymphocytes # (Manual) PT INR APTT Heparin Anti-Xa Level POC ABG pH 7.337 L POC ABG pCO2 32.0 L POC ABG pO2 130 H Sodium Potassium Chloride 115.5 H Carbon Dioxide 17 L BUN 30 H Creatinine 1.9 H Glucose 103 H POC Glucose 119 H Hemoglobin A1c Lactic Acid Calcium 6.9 L Phosphorus AST Alkaline Phosphatase NT-Pro-B Natriuret Pep Total Protein Albumin Crossmatch 10/08/18 10/08/18 10/09/18 20:09 20:57 01:10 WBC RBC Hgb Hct MCH RDW Lymph % (Auto) [place] % (Auto) Lymph # [place] # Baso # Seg Neutrophils % Seg Neuts % (Manual) Lymphocytes % (Manual) Seg Neutrophils # Seg Neutrophils # Man Lymphocytes # (Manual) PT INR APTT Heparin Anti-Xa Level POC ABG pH POC ABG pCO2 POC ABG pO2 Sodium Potassium Chloride 114.3 H 113.7 H Carbon Dioxide 15 L 14 L BUN 29 H 29 H Creatinine 2.1 H 2.0 H Glucose 132 H 39 L* POC Glucose 150 H Hemoglobin A1c Lactic Acid Calcium 6.7 L 6.9 L Phosphorus AST Alkaline Phosphatase NT-Pro-B Natriuret Pep Total Protein Albumin Crossmatch 10/09/18 10/09/18 10/09/18 01:10 01:43 03:20 WBC RBC Hgb Hct MCH RDW Lymph % (Auto) [place] % (Auto) Lymph # [place] # Baso # Seg Neutrophils % Seg Neuts % (Manual) Lymphocytes % (Manual) Seg Neutrophils # Seg Neutrophils # Man Lymphocytes # (Manual) PT INR APTT Heparin Anti-Xa Level POC ABG pH POC ABG pCO2 POC ABG pO2 Sodium Potassium Chloride Carbon Dioxide BUN Creatinine Glucose POC Glucose < 40 L < 40 L Hemoglobin A1c Lactic Acid Calcium Phosphorus AST Alkaline Phosphatase NT-Pro-B Natriuret Pep 2865 H Total Protein Albumin Crossmatch 10/09/18 10/09/18 10/09/18 04:23 05:03 05:25 WBC RBC Hgb Hct MCH RDW Lymph % (Auto) [place] % (Auto) Lymph # [place] # Baso # Seg Neutrophils % Seg Neuts % (Manual) Lymphocytes % (Manual) Seg Neutrophils # Seg Neutrophils # Man Lymphocytes # (Manual) PT INR APTT Heparin Anti-Xa Level POC ABG pH POC ABG pCO2 30.6 L 32.3 L POC ABG pO2 118 H Sodium Potassium Chloride Carbon Dioxide BUN Creatinine Glucose POC Glucose 148 H Hemoglobin A1c Lactic Acid Calcium Phosphorus AST Alkaline Phosphatase NT-Pro-B Natriuret Pep Total Protein Albumin Crossmatch 10/09/18 10/09/18 10/09/18 06:00 08:34 09:58 WBC RBC Hgb Hct MCH RDW Lymph % (Auto) [place] % (Auto) Lymph # [place] # Baso # Seg Neutrophils % Seg Neuts % (Manual) Lymphocytes % (Manual) Seg Neutrophils # Seg Neutrophils # Man Lymphocytes # (Manual) PT INR APTT Heparin Anti-Xa Level POC ABG pH POC ABG pCO2 POC ABG pO2 Sodium Potassium Chloride Carbon Dioxide BUN Creatinine Glucose POC Glucose 173 H 196 H 183 H Hemoglobin A1c Lactic Acid Calcium Phosphorus AST Alkaline Phosphatase NT-Pro-B Natriuret Pep Total Protein Albumin Crossmatch 10/09/18 10/09/18 10/09/18 12:25 12:46 18:16 WBC RBC Hgb Hct MCH RDW Lymph % (Auto) [place] % (Auto) Lymph # [place] # Baso # Seg Neutrophils % Seg Neuts % (Manual) Lymphocytes % (Manual) Seg Neutrophils # Seg Neutrophils # Man Lymphocytes # (Manual) PT INR APTT Heparin Anti-Xa Level POC ABG pH POC ABG pCO2 POC ABG pO2 Sodium Potassium Chloride 110.3 H Carbon Dioxide 16 L BUN 24 H Creatinine 1.8 H Glucose 207 H POC Glucose 208 H 177 H Hemoglobin A1c Lactic Acid Calcium 6.9 L Phosphorus AST Alkaline Phosphatase NT-Pro-B Natriuret Pep Total Protein Albumin Crossmatch 10/09/18 10/10/18 10/10/18 21:11 00:11 05:41 WBC RBC Hgb Hct MCH RDW Lymph % (Auto) [place] % (Auto) Lymph # [place] # Baso # Seg Neutrophils % Seg Neuts % (Manual) Lymphocytes % (Manual) Seg Neutrophils # Seg Neutrophils # Man Lymphocytes # (Manual) PT INR APTT Heparin Anti-Xa Level POC ABG pH POC ABG pCO2 POC ABG pO2 Sodium Potassium Chloride Carbon Dioxide BUN Creatinine Glucose POC Glucose 124 H 156 H 42 L Hemoglobin A1c Lactic Acid Calcium Phosphorus AST Alkaline Phosphatase NT-Pro-B Natriuret Pep Total Protein Albumin Crossmatch 10/10/18 10/10/18 10/10/18 05:45 07:28 12:07 WBC RBC Hgb Hct MCH RDW Lymph % (Auto) [place] % (Auto) Lymph # [place] # Baso # Seg Neutrophils % Seg Neuts % (Manual) Lymphocytes % (Manual) Seg Neutrophils # Seg Neutrophils # Man Lymphocytes # (Manual) PT INR APTT Heparin Anti-Xa Level POC ABG pH POC ABG pCO2 POC ABG pO2 Sodium 146 H D Potassium Chloride 111.2 H Carbon Dioxide BUN 21 H Creatinine 1.8 H Glucose 44 L POC Glucose 114 H 49 L Hemoglobin A1c Lactic Acid Calcium 7.4 L Phosphorus AST Alkaline Phosphatase NT-Pro-B Natriuret Pep Total Protein Albumin Crossmatch 10/10/18 10/10/18 10/10/18 12:37 18:02 20:47 WBC RBC Hgb Hct MCH RDW Lymph % (Auto) [place] % (Auto) Lymph # [place] # Baso # Seg Neutrophils % Seg Neuts % (Manual) Lymphocytes % (Manual) Seg Neutrophils # Seg Neutrophils # Man Lymphocytes # (Manual) PT INR APTT Heparin Anti-Xa Level POC ABG pH POC ABG pCO2 POC ABG pO2 Sodium Potassium Chloride Carbon Dioxide BUN Creatinine Glucose POC Glucose 142 H 49 L 162 H Hemoglobin A1c Lactic Acid Calcium Phosphorus AST Alkaline Phosphatase NT-Pro-B Natriuret Pep Total Protein Albumin Crossmatch 10/10/18 10/10/18 10/10/18 21:45 22:19 23:50 WBC RBC Hgb Hct MCH RDW Lymph % (Auto) [place] % (Auto) Lymph # [place] # Baso # Seg Neutrophils % Seg Neuts % (Manual) Lymphocytes % (Manual) Seg Neutrophils # Seg Neutrophils # Man Lymphocytes # (Manual) PT INR APTT Heparin Anti-Xa Level POC ABG pH 7.334 L POC ABG pCO2 47.0 H POC ABG pO2 53 L 79 L Sodium Potassium Chloride Carbon Dioxide BUN Creatinine Glucose POC Glucose 185 H Hemoglobin A1c Lactic Acid Calcium Phosphorus AST Alkaline Phosphatase NT-Pro-B Natriuret Pep Total Protein Albumin Crossmatch 10/11/18 10/11/18 10/11/18 05:00 06:41 07:17 WBC RBC Hgb Hct MCH RDW Lymph % (Auto) [place] % (Auto) Lymph # [place] # Baso # Seg Neutrophils % Seg Neuts % (Manual) Lymphocytes % (Manual) Seg Neutrophils # Seg Neutrophils # Man Lymphocytes # (Manual) PT INR APTT Heparin Anti-Xa Level POC ABG pH POC ABG pCO2 POC ABG pO2 Sodium Potassium Chloride Carbon Dioxide BUN Creatinine 1.7 H Glucose 43 L POC Glucose 48 L 129 H Hemoglobin A1c Lactic Acid Calcium 7.7 L Phosphorus AST Alkaline Phosphatase NT-Pro-B Natriuret Pep Total Protein Albumin Crossmatch 10/11/18 10/11/18 10/11/18 11:14 13:32 14:25 WBC RBC 3.32 L Hgb 8.2 L Hct 26.4 L MCH 25 L RDW 21.6 H Lymph % (Auto) [place] % (Auto) Lymph # [place] # Baso # Seg Neutrophils % Seg Neuts % (Manual) Lymphocytes % (Manual) Seg Neutrophils # Seg Neutrophils # Man Lymphocytes # (Manual) PT 21.7 H INR 1.76 H APTT 50.5 H Heparin Anti-Xa Level POC ABG pH POC ABG pCO2 POC ABG pO2 Sodium Potassium Chloride Carbon Dioxide BUN Creatinine Glucose POC Glucose 138 H Hemoglobin A1c Lactic Acid Calcium Phosphorus AST Alkaline Phosphatase NT-Pro-B Natriuret Pep Total Protein Albumin Crossmatch 10/11/18 10/11/18 10/11/18 14:25 15:41 17:31 WBC RBC Hgb Hct MCH RDW Lymph % (Auto) [place] % (Auto) Lymph # [place] # Baso # Seg Neutrophils % Seg Neuts % (Manual) Lymphocytes % (Manual) Seg Neutrophils # Seg Neutrophils # Man Lymphocytes # (Manual) PT 20.6 H INR 1.65 H APTT 54.9 H Heparin Anti-Xa Level POC ABG pH POC ABG pCO2 POC ABG pO2 53 L Sodium Potassium Chloride Carbon Dioxide BUN Creatinine Glucose POC Glucose 133 H Hemoglobin A1c Lactic Acid Calcium Phosphorus AST Alkaline Phosphatase NT-Pro-B Natriuret Pep Total Protein Albumin Crossmatch 10/12/18 10/12/18 10/12/18 00:30 03:56 04:25 WBC RBC Hgb Hct MCH RDW Lymph % (Auto) [place] % (Auto) Lymph # [place] # Baso # Seg Neutrophils % Seg Neuts % (Manual) Lymphocytes % (Manual) Seg Neutrophils # Seg Neutrophils # Man Lymphocytes # (Manual) PT INR APTT Heparin Anti-Xa Level POC ABG pH 7.514 H POC ABG pCO2 31.2 L POC ABG pO2 Sodium Potassium Chloride Carbon Dioxide BUN Creatinine 1.6 H Glucose 287 H POC Glucose 353 H Hemoglobin A1c Lactic Acid Calcium 8.0 L Phosphorus AST Alkaline Phosphatase NT-Pro-B Natriuret Pep Total Protein Albumin Crossmatch 10/12/18 10/12/18 10/12/18 04:49 12:13 17:53 WBC RBC Hgb Hct MCH RDW Lymph % (Auto) [place] % (Auto) Lymph # [place] # Baso # Seg Neutrophils % Seg Neuts % (Manual) Lymphocytes % (Manual) Seg Neutrophils # Seg Neutrophils # Man Lymphocytes # (Manual) PT INR APTT Heparin Anti-Xa Level POC ABG pH POC ABG pCO2 POC ABG pO2 Sodium Potassium Chloride Carbon Dioxide BUN Creatinine Glucose POC Glucose 297 H 290 H 211 H Hemoglobin A1c Lactic Acid Calcium Phosphorus AST Alkaline Phosphatase NT-Pro-B Natriuret Pep Total Protein Albumin Crossmatch 10/12/18 10/12/18 10/13/18 18:57 21:35 04:50 WBC 11.8 H RBC 3.08 L Hgb 7.4 L Hct 24.2 L MCH 24 L RDW 21.5 H Lymph % (Auto) [place] % (Auto) Lymph # [place] # Baso # Seg Neutrophils % Seg Neuts % (Manual) Lymphocytes % (Manual) Seg Neutrophils # Seg Neutrophils # Man Lymphocytes # (Manual) PT INR APTT Heparin Anti-Xa Level 1.74 H POC ABG pH 7.497 H POC ABG pCO2 33.2 L POC ABG pO2 71 L Sodium Potassium Chloride Carbon Dioxide BUN Creatinine Glucose POC Glucose Hemoglobin A1c Lactic Acid Calcium Phosphorus AST Alkaline Phosphatase NT-Pro-B Natriuret Pep Total Protein Albumin Crossmatch 10/13/18 10/13/18 10/13/18 05:25 05:25 05:37 WBC 12.1 H RBC 3.02 L Hgb 7.4 L Hct 23.7 L MCH 25 L RDW 21.0 H Lymph % (Auto) 9.6 L [place] % (Auto) 10.0 H Lymph # [place] # 1.2 H Baso # Seg Neutrophils % 76.2 H Seg Neuts % (Manual) Lymphocytes % (Manual) Seg Neutrophils # 9.2 H Seg Neutrophils # Man Lymphocytes # (Manual) PT INR APTT Heparin Anti-Xa Level POC ABG pH POC ABG pCO2 POC ABG pO2 Sodium Potassium Chloride Carbon Dioxide BUN Creatinine 1.6 H Glucose 175 H POC Glucose 165 H Hemoglobin A1c Lactic Acid Calcium 8.3 L Phosphorus AST Alkaline Phosphatase NT-Pro-B Natriuret Pep Total Protein Albumin Crossmatch 10/13/18 10/13/18 10/13/18 06:45 11:12 17:19 WBC RBC Hgb Hct MCH RDW Lymph % (Auto) [place] % (Auto) Lymph # [place] # Baso # Seg Neutrophils % Seg Neuts % (Manual) Lymphocytes % (Manual) Seg Neutrophils # Seg Neutrophils # Man Lymphocytes # (Manual) PT 17.4 H INR 1.34 H APTT Heparin Anti-Xa Level POC ABG pH POC ABG pCO2 POC ABG pO2 Sodium Potassium Chloride Carbon Dioxide BUN Creatinine Glucose POC Glucose 223 H 129 H Hemoglobin A1c Lactic Acid Calcium Phosphorus AST Alkaline Phosphatase NT-Pro-B Natriuret Pep Total Protein Albumin Crossmatch 10/13/18 10/14/18 10/14/18 23:39 05:01 06:14 WBC RBC Hgb Hct MCH RDW Lymph % (Auto) [place] % (Auto) Lymph # [place] # Baso # Seg Neutrophils % Seg Neuts % (Manual) Lymphocytes % (Manual) Seg Neutrophils # Seg Neutrophils # Man Lymphocytes # (Manual) PT INR APTT Heparin Anti-Xa Level POC ABG pH POC ABG pCO2 POC ABG pO2 Sodium Potassium Chloride Carbon Dioxide BUN Creatinine 1.5 H Glucose 264 H POC Glucose 171 H 226 H Hemoglobin A1c Lactic Acid Calcium 8.0 L Phosphorus AST Alkaline Phosphatase NT-Pro-B Natriuret Pep Total Protein Albumin Crossmatch 10/14/18 10/14/18 10/14/18 06:14 12:24 19:33 WBC RBC Hgb Hct MCH RDW Lymph % (Auto) [place] % (Auto) Lymph # [place] # Baso # Seg Neutrophils % Seg Neuts % (Manual) Lymphocytes % (Manual) Seg Neutrophils # Seg Neutrophils # Man Lymphocytes # (Manual) PT 22.1 H INR 1.80 H APTT Heparin Anti-Xa Level POC ABG pH POC ABG pCO2 POC ABG pO2 Sodium Potassium Chloride Carbon Dioxide BUN Creatinine Glucose POC Glucose 403 H 164 H Hemoglobin A1c Lactic Acid Calcium Phosphorus AST Alkaline Phosphatase NT-Pro-B Natriuret Pep Total Protein Albumin Crossmatch 10/15/18 10/15/18 10/15/18 00:29 06:03 07:00 WBC RBC Hgb Hct MCH RDW Lymph % (Auto) [place] % (Auto) Lymph # [place] # Baso # Seg Neutrophils % Seg Neuts % (Manual) Lymphocytes % (Manual) Seg Neutrophils # Seg Neutrophils # Man Lymphocytes # (Manual) PT INR APTT Heparin Anti-Xa Level POC ABG pH POC ABG pCO2 POC ABG pO2 Sodium Potassium Chloride Carbon Dioxide BUN 20 H Creatinine 1.7 H Glucose 308 H POC Glucose 237 H 282 H Hemoglobin A1c Lactic Acid Calcium 7.6 L Phosphorus AST Alkaline Phosphatase NT-Pro-B Natriuret Pep Total Protein Albumin Crossmatch 10/15/18 10/15/18 10/15/18 07:00 08:03 10:27 WBC RBC Hgb 5.8 L* Hct 18.5 L* MCH RDW Lymph % (Auto) [place] % (Auto) Lymph # [place] # Baso # Seg Neutrophils % Seg Neuts % (Manual) Lymphocytes % (Manual) Seg Neutrophils # Seg Neutrophils # Man Lymphocytes # (Manual) PT 46.1 H INR 4.52 H APTT Heparin Anti-Xa Level 0.25 L POC ABG pH POC ABG pCO2 POC ABG pO2 Sodium Potassium Chloride Carbon Dioxide BUN Creatinine Glucose POC Glucose Hemoglobin A1c Lactic Acid Calcium Phosphorus AST Alkaline Phosphatase NT-Pro-B Natriuret Pep Total Protein Albumin Crossmatch See Detail 10/15/18 10/15/18 10/16/18 14:03 15:30 10:18 WBC RBC Hgb Hct MCH RDW Lymph % (Auto) [place] % (Auto) Lymph # [place] # Baso # Seg Neutrophils % Seg Neuts % (Manual) Lymphocytes % (Manual) Seg Neutrophils # Seg Neutrophils # Man Lymphocytes # (Manual) PT 53.8 H INR 5.48 H* APTT Heparin Anti-Xa Level POC ABG pH POC ABG pCO2 POC ABG pO2 Sodium Potassium Chloride Carbon Dioxide BUN Creatinine Glucose POC Glucose 336 H 259 H Hemoglobin A1c Lactic Acid Calcium Phosphorus AST Alkaline Phosphatase NT-Pro-B Natriuret Pep Total Protein Albumin Crossmatch 10/16/18 10/16/18 10/16/18 10:18 10:18 13:03 WBC 14.8 H RBC 3.03 L Hgb 8.2 L Hct 24.9 L D MCH 27 L RDW 19.2 H Lymph % (Auto) 5.7 L [place] % (Auto) Lymph # 0.8 L [place] # 1.1 H Baso # 0.2 H Seg Neutrophils % 84.3 H Seg Neuts % (Manual) Lymphocytes % (Manual) Seg Neutrophils # 12.5 H Seg Neutrophils # Man Lymphocytes # (Manual) PT INR APTT Heparin Anti-Xa Level POC ABG pH POC ABG pCO2 POC ABG pO2 Sodium Potassium Chloride Carbon Dioxide 20 L BUN 21 H Creatinine 1.5 H Glucose 326 H POC Glucose 329 H Hemoglobin A1c Lactic Acid Calcium 7.8 L Phosphorus AST Alkaline Phosphatase NT-Pro-B Natriuret Pep Total Protein Albumin Crossmatch 10/16/18 10/17/18 10/17/18 13:27 00:35 05:00 WBC RBC Hgb Hct MCH RDW Lymph % (Auto) [place] % (Auto) Lymph # [place] # Baso # Seg Neutrophils % Seg Neuts % (Manual) Lymphocytes % (Manual) Seg Neutrophils # Seg Neutrophils # Man Lymphocytes # (Manual) PT 55.4 H 60.2 H INR 5.68 H* 6.30 H* APTT Heparin Anti-Xa Level POC ABG pH POC ABG pCO2 POC ABG pO2 Sodium Potassium Chloride Carbon Dioxide BUN Creatinine Glucose POC Glucose 407 H Hemoglobin A1c Lactic Acid Calcium Phosphorus AST Alkaline Phosphatase NT-Pro-B Natriuret Pep Total Protein Albumin Crossmatch 10/17/18 10/17/18 10/17/18 05:00 05:00 05:29 WBC 11.6 H RBC 2.99 L Hgb 8.0 L Hct 24.2 L MCH 27 L RDW 19.2 H Lymph % (Auto) [place] % (Auto) Lymph # [place] # Baso # Seg Neutrophils % Seg Neuts % (Manual) 87.0 H Lymphocytes % (Manual) 9.0 L Seg Neutrophils # Seg Neutrophils # Man 10.1 H Lymphocytes # (Manual) 1.0 L PT INR APTT Heparin Anti-Xa Level POC ABG pH POC ABG pCO2 POC ABG pO2 Sodium Potassium 3.4 L D Chloride Carbon Dioxide BUN Creatinine 1.4 H Glucose 170 H POC Glucose 156 H Hemoglobin A1c Lactic Acid Calcium 7.6 L Phosphorus AST Alkaline Phosphatase NT-Pro-B Natriuret Pep Total Protein 5.4 L Albumin 2.2 L Crossmatch 10/17/18 10/17/18 10/18/18 11:59 17:06 00:21 WBC RBC Hgb Hct MCH RDW Lymph % (Auto) [place] % (Auto) Lymph # [place] # Baso # Seg Neutrophils % Seg Neuts % (Manual) Lymphocytes % (Manual) Seg Neutrophils # Seg Neutrophils # Man Lymphocytes # (Manual) PT INR APTT Heparin Anti-Xa Level POC ABG pH POC ABG pCO2 POC ABG pO2 Sodium Potassium Chloride Carbon Dioxide BUN Creatinine Glucose POC Glucose 389 H 151 H 355 H Hemoglobin A1c Lactic Acid Calcium Phosphorus AST Alkaline Phosphatase NT-Pro-B Natriuret Pep Total Protein Albumin Crossmatch 10/18/18 10/18/18 10/18/18 04:17 04:17 04:17 WBC RBC 3.01 L Hgb 8.1 L Hct 24.6 L MCH 27 L RDW 19.7 H Lymph % (Auto) 12.7 L [place] % (Auto) Lymph # [place] # Baso # Seg Neutrophils % 76.3 H Seg Neuts % (Manual) Lymphocytes % (Manual) Seg Neutrophils # 8.2 H Seg Neutrophils # Man Lymphocytes # (Manual) PT 39.5 H INR 3.72 H APTT Heparin Anti-Xa Level POC ABG pH POC ABG pCO2 POC ABG pO2 Sodium Potassium 3.5 L Chloride Carbon Dioxide BUN Creatinine 1.5 H Glucose 115 H POC Glucose Hemoglobin A1c Lactic Acid Calcium 7.4 L Phosphorus AST Alkaline Phosphatase NT-Pro-B Natriuret Pep Total Protein Albumin Crossmatch 10/18/18 10/18/18 10/18/18 06:45 13:39 17:12 WBC RBC Hgb Hct MCH RDW Lymph % (Auto) [place] % (Auto) Lymph # [place] # Baso # Seg Neutrophils % Seg Neuts % (Manual) Lymphocytes % (Manual) Seg Neutrophils # Seg Neutrophils # Man Lymphocytes # (Manual) PT INR APTT Heparin Anti-Xa Level POC ABG pH POC ABG pCO2 POC ABG pO2 Sodium Potassium Chloride Carbon Dioxide BUN Creatinine Glucose POC Glucose 170 H 415 H 377 H Hemoglobin A1c Lactic Acid Calcium Phosphorus AST Alkaline Phosphatase NT-Pro-B Natriuret Pep Total Protein Albumin Crossmatch 10/19/18 10/19/18 10/19/18 00:48 05:35 05:52 WBC RBC 2.84 L Hgb 7.7 L Hct 23.2 L MCH 27 L RDW 19.8 H Lymph % (Auto) 11.0 L [place] % (Auto) Lymph # 1.1 L [place] # Baso # Seg Neutrophils % 78.5 H Seg Neuts % (Manual) Lymphocytes % (Manual) Seg Neutrophils # 8.1 H Seg Neutrophils # Man Lymphocytes # (Manual) PT INR APTT Heparin Anti-Xa Level POC ABG pH POC ABG pCO2 POC ABG pO2 Sodium Potassium Chloride Carbon Dioxide BUN Creatinine Glucose POC Glucose 308 H 116 H Hemoglobin A1c Lactic Acid Calcium Phosphorus AST Alkaline Phosphatase NT-Pro-B Natriuret Pep Total Protein Albumin Crossmatch 10/19/18 10/19/18 10/19/18 05:52 07:12 09:41 WBC RBC Hgb 8.1 L Hct 24.6 L MCH RDW Lymph % (Auto) [place] % (Auto) Lymph # [place] # Baso # Seg Neutrophils % Seg Neuts % (Manual) Lymphocytes % (Manual) Seg Neutrophils # Seg Neutrophils # Man Lymphocytes # (Manual) PT 18.1 H INR 1.40 H APTT Heparin Anti-Xa Level POC ABG pH POC ABG pCO2 POC ABG pO2 Sodium Potassium Chloride Carbon Dioxide BUN 21 H Creatinine 1.6 H Glucose 128 H POC Glucose Hemoglobin A1c Lactic Acid Calcium 7.7 L Phosphorus AST Alkaline Phosphatase NT-Pro-B Natriuret Pep Total Protein Albumin Crossmatch 10/19/18 10/19/18 10/19/18 09:41 11:46 16:12 WBC RBC Hgb Hct MCH RDW Lymph % (Auto) [place] % (Auto) Lymph # [place] # Baso # Seg Neutrophils % Seg Neuts % (Manual) Lymphocytes % (Manual) Seg Neutrophils # Seg Neutrophils # Man Lymphocytes # (Manual) PT 17.7 H INR 1.36 H APTT Heparin Anti-Xa Level POC ABG pH POC ABG pCO2 POC ABG pO2 Sodium Potassium Chloride Carbon Dioxide BUN Creatinine Glucose POC Glucose 212 H 260 H Hemoglobin A1c Lactic Acid Calcium Phosphorus AST Alkaline Phosphatase NT-Pro-B Natriuret Pep Total Protein Albumin Crossmatch 10/19/18 10/19/18 10/19/18 19:56 22:09 Unknown WBC RBC Hgb Hct MCH RDW Lymph % (Auto) [place] % (Auto) Lymph # [place] # Baso # Seg Neutrophils % Seg Neuts % (Manual) Lymphocytes % (Manual) Seg Neutrophils # Seg Neutrophils # Man Lymphocytes # (Manual) PT INR APTT Heparin Anti-Xa Level 0.19 L POC ABG pH 7.458 H POC ABG pCO2 POC ABG pO2 63 L Sodium Potassium Chloride Carbon Dioxide BUN Creatinine Glucose POC Glucose 216 H Hemoglobin A1c Lactic Acid Calcium Phosphorus AST Alkaline Phosphatase NT-Pro-B Natriuret Pep Total Protein Albumin Crossmatch 10/20/18 10/20/18 10/20/18 03:00 03:00 03:00 WBC 14.8 H RBC 2.81 L Hgb 7.5 L Hct 23.1 L MCH 27 L RDW 20.0 H Lymph % (Auto) 11.5 L [place] % (Auto) Lymph # [place] # 0.9 H Baso # Seg Neutrophils % 79.7 H Seg Neuts % (Manual) Lymphocytes % (Manual) Seg Neutrophils # 11.8 H Seg Neutrophils # Man Lymphocytes # (Manual) PT 16.9 H INR 1.29 H APTT Heparin Anti-Xa Level 0.24 L POC ABG pH POC ABG pCO2 POC ABG pO2 Sodium Potassium Chloride 97.8 L Carbon Dioxide BUN 20 H Creatinine 1.5 H Glucose 206 H POC Glucose Hemoglobin A1c Lactic Acid Calcium 7.8 L Phosphorus AST Alkaline Phosphatase NT-Pro-B Natriuret Pep Total Protein Albumin Crossmatch 10/20/18 10/20/18 10/20/18 06:59 10:20 10:59 WBC RBC Hgb Hct MCH RDW Lymph % (Auto) [place] % (Auto) Lymph # [place] # Baso # Seg Neutrophils % Seg Neuts % (Manual) Lymphocytes % (Manual) Seg Neutrophils # Seg Neutrophils # Man Lymphocytes # (Manual) PT 15.5 H INR 1.16 H APTT Heparin Anti-Xa Level < 0.10 L POC ABG pH POC ABG pCO2 POC ABG pO2 Sodium Potassium Chloride Carbon Dioxide BUN Creatinine Glucose POC Glucose 348 H 227 H Hemoglobin A1c Lactic Acid Calcium Phosphorus AST Alkaline Phosphatase NT-Pro-B Natriuret Pep Total Protein Albumin Crossmatch Allied health notes reviewed: nursing
[2018-10-20] MEDS ORDERED: COUMADIN PO SCH (17:00)
[2018-10-20] MEDS: HEPARIN/ 0.45% NACL-25,000 UNIT/500 ML 25,000 UNIT/500 ML BAG IV SCH (22:35)
[2018-10-21] MEDS ORDERED: CITRATE OF MAGNESIA PO ONE (00:13)
[2018-10-21] MEDS: HumaLOG SUB-Q SCH ×6 (00:54→18:57)
[2018-10-21] MEDS ORDERED: DULCOLAX PO ONE (01:31)
[2018-10-21 06:21] LABS: Basophils # (Auto) 0.1 K/mm3 (0.0-0.1); Basophils % (Auto) 0.8 % (0.0-1.8); Eosinophils # (Auto) 0.3 K/mm3 (0.0-0.4); Eosinophils % (Auto) 1.7 % (0.0-4.3); Hematocrit 22.9 % (30.3-42.9); Hemoglobin 7.5 gm/dl (10.1-14.3); Lymphocytes # (Auto) 1.1 K/mm3 (1.2-5.4); Lymphocytes % (Auto) 7.2 % (13.4-35.0); Mean Corpuscular HGB Conc 33 % (30-34); Mean Corpuscular Volume 82 fl (79-97); Monocytes # (Auto) 0.7 K/mm3 (0.0-0.8); Monocytes % (Auto) 4.6 % (0.0-7.3); Platelet Count 422 K/mm3 (140-440); Red Blood Count 2.79 M/mm3 (3.65-5.03); Red Cell Distribution Width 19.8 % (13.2-15.2)
[2018-10-21 06:40] LABS: Calcium 8.3 mg/dL (8.4-10.2)
[2018-10-21 06:53] LABS: INR 1.29 (0.87-1.13)
[2018-10-21] MEDS ORDERED: HumaLOG SUB-Q ONE (08:15)
[2018-10-21] MEDS: LOPRESSOR PO SCH ×3 (08:40→20:53)
--- NOTE | 2018-10-21 08:40 | XRay Report ---
AP CHEST: HISTORY: Fever Minimal improvement in the bilateral infiltrates is demonstrated since 10/19/18. Small right pleural effusion and mild cardiomegaly are stable. Right arm PICC remains in good position. IMPRESSION: Minimal improvement in the bilateral infiltrates.
--- NOTE | 2018-10-21 10:11 | Progress Note ---
Assessment and Plan For possible endoscopy today. Cont heparin gtt and resume coumadin with tx INR 2.5 - 3.5 if/when okay per GI team. Currently stable cardiac status. Pt is at high cardiovascular risk for endoscopy in setting of multiple cardiac co-morbidities. However, there are no immediate cardiac contraindications to proceeding with endoscopy at this time. Cont PO lasix, lopressor. Consider ACEI/ARB if okay per nephrology. The patient has been seen in conjunction with Dr. Colmenares who agrees with the assessment and plan of care. - Patient Problems (1) Altered mental status Current Visit: Yes Status: Resolved (2) Seizures Current Visit: Yes Status: Suspected (3) Hypoglycemia Current Visit: Yes Status: Resolved (4) Acute respiratory failure Current Visit: Yes Status: Resolved (5) Pneumonia Current Visit: Yes Status: Suspected Qualifiers: Pneumonia type: due to unspecified organism Laterality: right Lung location: middle lobe of lung Qualified Code(s): J18.1 - Lobar pneumonia, unspecified organism (6) Sepsis Current Visit: Yes Status: Suspected Qualifiers: Sepsis type: sepsis due to unspecified organism Qualified Code(s): A41.9 - Sepsis, unspecified organism (7) CAD (coronary artery disease) Current Visit: Yes Status: Chronic (8) History of coronary artery bypass graft Current Visit: Yes Status: Chronic (9) H/O mitral valve replacement with mechanical valve Current Visit: Yes Status: Chronic (10) Heart failure with reduced ejection fraction Current Visit: Yes Status: Acute (11) Acute on chronic renal failure Current Visit: Yes Status: Acute (12) Anemia Current Visit: Yes Status: Chronic (13) History of GI bleed Current Visit: Yes Status: Chronic (14) Diabetes Current Visit: Yes Status: Chronic Subjective Date of service: 10/21/18 Principal diagnosis: Ac hypoxemic resp failure; Seizures (?hypoglycemic); Ac encephalopathy(T/M) Interval history: pt resting in bed, no current cardiac complaints. For possible endoscopy today. Objective Last Vital Signs Temp 98.4 F 10/21/18 04:51 Pulse 92 H 10/21/18 08:40 Resp 18 10/21/18 04:51 BP 136/80 10/21/18 08:40 Pulse Ox 100 10/21/18 04:51 - Physical Examination General: No Apparent Distress HEENT: Positive: PERRL Neck: Positive: neck supple Cardiac: Positive: Reg Rate and Rhythm, S1/S2 Lungs: Positive: Decreased Breath Sounds Neuro: Positive: Grossly Intact Abdomen: Negative: Tender Skin: Negative: Rash Extremities: Absent: edema - Labs and Meds Coagulation 10/20/18 10/21/18 Range/Units 10:20 05:45 PT 15.5 H 16.9 H (12.2-14.9) Sec. INR 1.16 H 1.29 H (0.87-1.13) CBC 10/21/18 Range/Units 05:45 WBC 15.8 H (4.5-11.0) K/mm3 RBC 2.79 L (3.65-5.03) M/mm3 Hgb 7.5 L (10.1-14.3) gm/dl Hct 22.9 L (30.3-42.9) % Plt Count 422 (140-440) K/mm3 Lymph # 1.1 L (1.2-5.4) K/mm3 [place] # 0.7 (0.0-0.8) K/mm3 Eos # 0.3 (0.0-0.4) K/mm3 Baso # 0.1 (0.0-0.1) K/mm3 Comprehensive Metabolic Panel 10/21/18 Range/Units 05:45 Sodium 137 (137-145) mmol/L Potassium 3.9 (3.6-5.0) mmol/L Chloride 100.3 (98-107) mmol/L Carbon Dioxide 25 (22-30) mmol/L BUN 18 H (7-17) mg/dL Creatinine 1.4 H (0.7-1.2) mg/dL Glucose 339 H (65-100) mg/dL Calcium 8.3 L (8.4-10.2) mg/dL - Imaging and Cardiology EKG: report reviewed, image reviewed Echo: report reviewed (07/2018: EF 40%, mild to mod LVH, LA and RA dilated, mod TR and ME, mechanical valve in mitral position that appears to be functioning properly. 10/2018: EF 35-40%, mod LVH, abnormal diastolic function, LA severely dilated, mechanical MV appears well seated with normal function, mod pulm HTN. 11/2016 showed EF 40-45%, abnormal diastolic function, trace MR, mild TR, RVSP 36mmHg. ) - EKG Sinus rhythms and dysrhythmias: sinus rhythm Chamber hypertrophy or enlargement: left ventricular hypertro - Allied health notes Allied health notes reviewed: nursing
--- NOTE | 2018-10-21 10:24 | Progress Note ---
Assessment and Plan Assessment and plan: 48 year old woman with history of coronary artery disease, status post cabbage, diabetes, hypertension who was brought to the emergency room for altered mental status. She was found to have hypoglycemia, she was also having convulsions at the time of admission. The patient was intubated, sp dextrose she was put on the ventilator she was found to have pneumonia and CHF flare and started on antibiotics. patient has history of MV replacement and was on anticoagulation. Pneumonia, severe sepsis - Patient was on IV antibiotics and completed on 10/13 per ID Acute hypoxic respiratory failure on MV >96 hrs Was intubated and on mechanical ventilation - patient was extubated on 10/13 -Weaned to room air on 10/19, back on oxygen again on 10/21 status epilepticus; Seizures when most likely due to hypoglycemia -Treated with dextrose -, neurology consult appreciated Acute on chronic systolic CHF EF 40%, dilated ventricles -cardiology consult appreciated, sp lasix, now on PO lasix [facility]/hypercoaguable state/coagulopathy due to warfarin INR subtherapeutic, on heparin ggt -very sensitive to warfain and gets supratherapeutic very quickly after a few doses, hematology consulted, will be restarted on low dose Severe anemia sp-transfusion, Gi workup planned for scope today 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, treated as type 1, uncontrolled, a1c 10.2 Continue insulins judiciously, brittle DM with episodes of hypoglycemia and hyperglycemia, labile glc Mazin upon ckd stage 3, vasomotor nephropathy and likely ATN from sepsis Nephrology input appreciated, avoid nephrotoxins, neph signed off on 10/15 acute metabolic encephalopathy improving, appears to have some baseline confusion hypernatremia resolved after she received hypotonic ivf Hyperkalemia resolved with insulin and diuretics htn urgency; optimized bp meds Marijuana abuse; was counseled, preventive health counseling, done 17 mins spent dvt ppx- chemical, History Interval history: Review of systems Constitutional: No fevers, no malaise, no joint pains CVS: No chest pain, no pedal edema, sob is resolved GI:no hematemesis, blood in stool or melena, No abdominal pain, no diarrhea, no vomiting, no constipation Respiratory: No cough or wheezing Hospitalist Physical - Physical exam Narrative exam: General.: appears well HEENT: Moist mucous membranes, extraocular muscles intact, no lymphadenopathy Neck: supple Cardiac: S1-S2 heard Lungs: Clear to auscultation Abdomen: soft , nontender, nondistended, bowel sounds positive Extremities: no edema clubbing or cyanosis Skin: no rash or lesions Neurologic: no focal deficit Psych: calm and cooperative - Constitutional Vitals: Temp Pulse Resp BP Pulse Ox 98.4 F 92 H 18 136/80 100 10/21/18 04:51 10/21/18 08:40 10/21/18 04:51 10/21/18 08:40 10/21/18 04:51 General appearance: Present: other (intubated, eyes open, no purposeful response to commands) Results - Labs CBC & Chem 7: 10/22/18 11:20 10/22/18 17:11 Labs: Laboratory Last Values WBC 15.8 K/mm3 (4.5-11.0) H 10/21/18 05:45 RBC 2.79 M/mm3 (3.65-5.03) L 10/21/18 05:45 Hgb 7.5 gm/dl (10.1-14.3) L 10/21/18 05:45 Hct 22.9 % (30.3-42.9) L 10/21/18 05:45 MCV 82 fl (79-97) 10/21/18 05:45 MCH 27 pg (28-32) L 10/21/18 05:45 MCHC 33 % (30-34) 10/21/18 05:45 RDW 19.8 % (13.2-15.2) H 10/21/18 05:45 Plt Count 422 K/mm3 (140-440) 10/21/18 05:45 Lymph % (Auto) 7.2 % (13.4-35.0) L 10/21/18 05:45 [place] % (Auto) 4.6 % (0.0-7.3) 10/21/18 05:45 Eos % (Auto) 1.7 % (0.0-4.3) 10/21/18 05:45 Baso % (Auto) 0.8 % (0.0-1.8) 10/21/18 05:45 Lymph # 1.1 K/mm3 (1.2-5.4) L 10/21/18 05:45 [place] # 0.7 K/mm3 (0.0-0.8) 10/21/18 05:45 Eos # 0.3 K/mm3 (0.0-0.4) 10/21/18 05:45 Baso # 0.1 K/mm3 (0.0-0.1) 10/21/18 05:45 Add Manual Diff Complete 10/17/18 05:00 Total Counted 100 10/17/18 05:00 Seg Neutrophils % 85.7 % (40.0-70.0) H 10/21/18 05:45 Seg Neuts % (Manual) 87.0 % (40.0-70.0) H 10/17/18 05:00 0 % 10/17/18 05:00 9.0 % (13.4-35.0) L 10/17/18 05:00 Reactive Lymphs % (Man) 0 % 10/17/18 05:00 2.0 % (0.0-7.3) 10/17/18 05:00 2.0 % (0.0-4.3) 10/17/18 05:00 0 % (0.0-1.8) 10/17/18 05:00 0 % 10/17/18 05:00 0 % 10/17/18 05:00 0 % 10/17/18 05:00 0 % 10/17/18 05:00 Nucleated RBC % Not Reportable 10/17/18 05:00 Seg Neutrophils # 13.5 K/mm3 (1.8-7.7) H 10/21/18 05:45 Seg Neutrophils # Man 10.1 K/mm3 (1.8-7.7) H 10/17/18 05:00 Band Neutrophils # 0.0 K/mm3 10/17/18 05:00 1.0 K/mm3 (1.2-5.4) L 10/17/18 05:00 Abs React Lymphs (Man) 0.0 K/mm3 10/17/18 05:00 0.2 K/mm3 (0.0-0.8) 10/17/18 05:00 0.2 K/mm3 (0.0-0.4) 10/17/18 05:00 0.0 K/mm3 (0.0-0.1) 10/17/18 05:00 0.0 K/mm3 10/17/18 05:00 0.0 K/mm3 10/17/18 05:00 0.0 K/mm3 10/17/18 05:00 Blast Cells # 0.0 K/mm3 10/17/18 05:00 WBC Morphology Not Reportable 10/17/18 05:00 Hypersegmented Neuts Not Reportable 10/17/18 05:00 Hyposegmented Neuts Not Reportable 10/17/18 05:00 Hypogranular Neuts Not Reportable 10/17/18 05:00 Not Reportable 10/17/18 05:00 Not Reportable 10/17/18 05:00 Not Reportable 10/17/18 05:00 Not Reportable 10/17/18 05:00 Not Reportable 10/17/18 05:00 Not Reportable 10/17/18 05:00 Consistent w auto 10/17/18 05:00 Not Reportable 10/17/18 05:00 Plt Clumps, EDTA Not Reportable 10/17/18 05:00 Not Reportable 10/17/18 05:00 Not Reportable 10/17/18 05:00 Not Reportable 10/17/18 05:00 Plt Morphology Comment Not Reportable 10/17/18 05:00 RBC Morphology Not Reportable 10/17/18 05:00 Dimorphic RBCs Not Reportable 10/17/18 05:00 Not Reportable 10/17/18 05:00 1+ 10/17/18 05:00 Few 10/17/18 05:00 1+ 10/17/18 05:00 Not Reportable 10/17/18 05:00 Rare 10/17/18 05:00 Not Reportable 10/17/18 05:00 Not Reportable 10/17/18 05:00 Not Reportable 10/17/18 05:00 Not Reportable 10/17/18 05:00 Not Reportable 10/17/18 05:00 Not Reportable 10/17/18 05:00 Not Reportable 10/17/18 05:00 Not Reportable 10/17/18 05:00 Not Reportable 10/17/18 05:00 Not Reportable 10/17/18 05:00 Not Reportable 10/17/18 05:00 Not Reportable 10/17/18 05:00 Not Reportable 10/17/18 05:00 Acanthocytes (Spur) Not Reportable 10/17/18 05:00 Rouleaux Not Reportable 10/17/18 05:00 Not Reportable 10/17/18 05:00 Not Reportable 10/17/18 05:00 Not Reportable 10/17/18 05:00 Not Reportable 10/17/18 05:00 Hem Pathologist Commnt No 10/17/18 05:00 PT 16.9 Sec. (12.2-14.9) H 10/21/18 05:45 INR 1.29 (0.87-1.13) H 10/21/18 05:45 APTT 32.9 Sec. (24.2-36.6) 10/19/18 09:41 Heparin Anti-Xa Level 0.36 U.I./ml (0.3-0.7) 10/20/18 23:12 POC ABG pH 7.458 (7.35-7.45) H 10/19/18 19:56 POC ABG pCO2 37.9 (35-45) 10/19/18 19:56 POC ABG pO2 63 (80-105) L 10/19/18 19:56 POC ABG HCO3 26.8 (22-26 mml/L) 10/19/18 19:56 POC ABG Total CO2 28 (23-27mmol/L) 10/19/18 19:56 POC ABG O2 Sat 93 10/19/18 19:56 POC ABG Base Excess 3 ((-2) - (+3)mmol/L) 10/19/18 19:56 2 % 10/19/18 19:56 Sodium 137 mmol/L (137-145) 10/21/18 05:45 Potassium 3.9 mmol/L (3.6-5.0) 10/21/18 05:45 Chloride 100.3 mmol/L (98-107) 10/21/18 05:45 Carbon Dioxide 25 mmol/L (22-30) 10/21/18 05:45 16 mmol/L 10/21/18 05:45 BUN 18 mg/dL (7-17) H 10/21/18 05:45 1.4 mg/dL (0.7-1.2) H 10/21/18 05:45 Estimated GFR 48 ml/min 10/21/18 05:45 13 % 10/21/18 05:45 Glucose 339 mg/dL (65-100) H 10/21/18 05:45 POC Glucose 295 (70-105) H 10/21/18 10:13 10.2 % (4-6) H 10/07/18 22:08 Lactic Acid 1.50 mmol/L (0.7-2.0) 10/08/18 17:09 Calcium 8.3 mg/dL (8.4-10.2) L 10/21/18 05:45 Phosphorus 7.40 mg/dL (2.5-4.5) H 10/07/18 22:08 Magnesium 1.70 mg/dL (1.7-2.3) 10/18/18 20:20 0.60 mg/dL (0.1-1.2) 10/17/18 05:00 < 0.2 mg/dL (0-0.2) 10/17/18 05:00 0.4 mg/dL 10/17/18 05:00 AST 14 units/L (5-40) 10/17/18 05:00 ALT 8 units/L (7-56) 10/17/18 05:00 104 units/L (35-129) 10/17/18 05:00 40.0 umol/L (25-60) 10/07/18 02:43 < 0.010 ng/mL (0.00-0.029) 10/07/18 08:59 0.20 mg/dL (0.00-1.30) 10/07/18 14:55 NT-Pro-B Natriuret Pep 2865 pg/mL (0-450) H 10/09/18 03:20 5.4 g/dL (6.3-8.2) L 10/17/18 05:00 2.2 g/dL (3.9-5) L 10/17/18 05:00 0.7 % 10/17/18 05:00 Straw (Yellow) 10/07/18 02:34 Clear (Clear) 10/07/18 02:34 7.0 (5.0-7.0) 10/07/18 02:34 Ur Specific [place] 1.006 (1.003-1.030) 10/07/18 02:34 100 mg/dl mg/dL (Negative) 10/07/18 02:34 Neg mg/dL (Negative) 10/07/18 02:34 Neg mg/dL (Negative) 10/07/18 02:34 Sm (Negative) 10/07/18 02:34 Neg (Negative) 10/07/18 02:34 Neg (Negative) 10/07/18 02:34 < 2.0 mg/dL (<2.0) 10/07/18 02:34 Ur Leukocyte Esterase Tr (Negative) 10/07/18 02:34 1.0 /HPF (0.0-6.0) 10/07/18 02:34 5.0 /HPF (0.0-6.0) 10/07/18 02:34 U Epithel Cells (Auto) 1.0 /HPF (0-13.0) 10/07/18 02:34 Hyaline Casts 3 /LPF 10/07/18 02:34 Few /HPF 10/07/18 02:34 Presumptive negative 10/07/18 02:34 Presumptive negative 10/07/18 02:34 Ur Barbiturates Screen Presumptive negative 10/07/18 02:34 Ur Phencyclidine Scrn Presumptive negative 10/07/18 02:34 Ur Amphetamines Screen Presumptive negative 10/07/18 02:34 U Benzodiazepines Scrn Presumptive negative 10/07/18 02:34 Presumptive negative 10/07/18 02:34 U Marijuana (THC) Screen Presumptive positive 10/07/18 02:34 Disclamer 10/07/18 02:34 Blood Type O POSITIVE 10/15/18 10:27 Antibody Screen Negative 10/15/18 10:27 Crossmatch See Detail 10/15/18 10:27 Active Medications - Current Medications Current Medications: Generic Name Dose Route Start Last Admin Trade Name Freq PRN Reason Stop Dose Admin Acetaminophen 650 mg 10/07/18 04:59 10/20/18 12:56 Tylenol PO 650 mg Q4H PRN Administration Pain MILD(1-3)/Fever >100.5/[id number] Lipase/Protease/Amylase 1 each 10/08/18 10:00 Pancreangelica Arredondo 10,500 Unit FEEDTUBE PRN PRN For Clogged Feeding Tube Dextrose 50 ml 10/07/18 20:42 10/10/18 05:46 D50w (25gm) Syringe IV 50 ml PRN PRN Administration Hypoglycemia Furosemide 40 mg 05/15/19 11:00 10/20/18 09:29 Lasix PO 40 mg QDAY [facility] Administration Hydralazine HCl 10 mg 10/07/18 05:07 10/14/18 08:35 Apresoline IV 10 mg Q4H PRN Administration Blood Pressure Hydrophilic Ointment 1 applic 10/07/18 02:40 Vaseline Lip Therapy TP Q2HR PRN Dry Lips Heparin Sodium/Sodium Chloride 25,000 unit in 500 mls @ 15 mls/hr 10/19/18 10:00 10/21/18 00:23 Heparin/ 0.45% Nacl-25,000 Unit/500 Ml IV 900 units/hr TITR [facility] 18 mls/hr Titration Protocol 750 UNITS/HR Insulin Glargine 5 units 10/12/18 12:00 10/20/18 09:32 Lantus SUB-Q 5 units DAILY [facility] Administration Insulin Human Lispro 0 unit 10/09/18 00:00 10/21/18 00:54 Humalog SUB-Q Not Given Q6HR [facility] Protocol Insulin Human Lispro 6 unit 10/19/18 16:49 10/21/18 08:38 Humalog SUB-Q Not Given AC [facility] Lansoprazole 30 mg 10/16/18 22:00 10/20/18 22:29 Prevacid Solutab FEEDTUBE 30 mg BID [facility] Administration Metoclopramide HCl 10 mg 10/11/18 13:00 10/12/18 19:32 Reglan IV 10 mg Q6HR PRN Administration Nausea And Vomiting Metoprolol Tartrate 50 mg 10/14/18 08:40 10/21/18 08:40 Lopressor PO 50 mg TID [facility] Administration Multi-Ingred Cream/Lotion/Oil/Oint 1 applic 10/07/18 02:40 Artificial Tears Ophth Oint OU Q4HR PRN Dry Eye(s) Ondansetron HCl 4 mg 10/07/18 04:59 Zofran IV Q8H PRN N/V unrelieved by Kojo Quetiapine Fumarate 100 mg 10/09/18 22:00 10/20/18 22:29 Seroquel PO 100 mg QHS [facility] Administration Simple Syrup 15 ml 10/08/18 10:00 Simple Syrup FEEDTUBE PRN PRN Hypoglycemia Simple Syrup 30 ml 10/08/18 10:00 10/09/18 01:09 Simple Syrup FEEDTUBE 30 ml PRN PRN Administration Hypoglycemia Sodium Bicarbonate 325 mg 10/08/18 10:00 Sodium Bicarbonate FEEDTUBE PRN PRN For Clogged Feeding Tube Sodium Chloride 10 ml 10/07/18 10:00 10/20/18 22:39 Sodium Chloride Flush Syringe 10 Ml IV 10 ml BID [facility] Administration Sodium Chloride 10 ml 10/07/18 04:59 10/18/18 07:15 Sodium Chloride Flush Syringe 10 Ml IV 10 ml PRN PRN Administration LINE FLUSH Warfarin Sodium 2 mg 10/20/18 17:00 10/20/18 17:42 Coumadin PO 2 mg DAILY@1700 [facility] Administration Protocol Nutrition/Malnutrition Assess - Dietary Evaluation Nutrition/Malnutrition Findings: Nutrition Notes Start: 10/07/18 12:17 Freq: Status: Active Protocol: Document 10/18/18 10:18 CP (Rec: 10/18/18 10:25 CP [id number]) Co-Sign 10/18/18 10:18 LP Nutrition Notes Initial or Follow up Reassessment Current Diagnosis CKD (stage V CKD),Diabetes, Hypertension,Heart Failure Current Diet Cardiac diet Labs/Tests K 3.5 BG 115 Pertinent Medications Lasix Humalog Height 5 ft 2 in Weight 54.1 kg [place] Body Weight (kg) 50.00 BMI 21.8 Subjective/Other Information F/U for PO tolerance, diet advancement, need for DNI education. Pt appeared to be half-awake during time of visit. Observed uneaten tray by bedside. When asked if she wanted an ONS, the pt nodded her head. Per RN note, pt ate 100% of her dinner last night. Pt is not on coumadin medication currently. Percent of energy/protein needs met: 0%/0% Burn Absent Trauma Absent #1 Nutrition Diagnosis Inadequate oral intake Diagnosis Progress(for reassessment Continues documentation) Is patient on ventilator? No Is Patient Ambulatory and/or Out of Bed No [facility] [phone] Calculation Used for Recommendations [facility] Additional Notes Pro needs 0.8-1g/k-54g/ day Fluid needs 1ml/kcal Nutrition Intervention Change Diet Order: Continue current or per MD request Goal #1 PO tolerance Goal #2 PO intake to meet at least 75% of energy and protein needs Goal #3 Improved BG control Follow-Up By: 10/21/18 Additional Comments F/U: PO tolerance
--- NOTE | 2018-10-21 11:02 | Anesthesia Consultation ---
Anesthesia Consult and Med Hx Date of service: 10/21/18 - Pre-Operative Health Status ASA Pre-Surgery Classification: ASA4 Proposed Anesthetic Plan: MAC - Pre-Anesthesia Comment Pre-Anesthesia Comments: EF 35-40%. Heparin stopped at 0100 - Pulmonary Hx Smoking: Yes (MJ) Hx Pneumonia: Yes - Cardiovascular System Hx Hypertension: Yes (CHF) Hx Coronary Artery Disease: Yes (CABG) Hx Heart Attack/AMI: Yes Hx Cardia Arrhythmia: Yes (HX of VFIB) Hx Valvular Heart Disease: Yes (Mitral Valve Replacement ) - Endocrine Hx Insulin Dependent Diabetes: Yes - Hematic Hx Anemia: Yes (s/p transfusion 7.5/22.9)
[2018-10-21] MEDS: LANTUS SUB-Q SCH (11:20)
[2018-10-21] MEDS: SODIUM CHLORIDE FLUSH SYRINGE 10 ML IV SCH ×2 (11:21→22:17)
[2018-10-21] MEDS: PREVACID SOLUTAB FEEDTUBE SCH ×2 (11:22→22:16)
[2018-10-21] MEDS: LASIX PO SCH (11:23)
[2018-10-21] MEDS ORDERED: WATER FOR IRRIG STERILE IR ONE (12:07)
[2018-10-21] MEDS ORDERED: WATER FOR IRRIG STERILE ONE (12:08)
[2018-10-21] MEDS ORDERED: NACL 0.9% 1000 ML 1,000 ML ONE (12:18)
[2018-10-21] MEDS ORDERED: XYLOCAINE 2% INFILTRATI ONE (12:49)
[2018-10-21] MEDS ORDERED: VERSED ONE (12:49)
[2018-10-21] MEDS ORDERED: AMIDATE IV ONE (12:49)
--- NOTE | 2018-10-21 13:00 | Anesthesia Day of Surgery ---
Anesthesia Day of Surgery - Day of Surgery Patient Examined: Yes Patient H&P Reviewed: Yes Patient is NPO: Yes Beta Blockers: No
[2018-10-21] MEDS ORDERED: DIPRIVAN 10 MG/ML IV ONE (13:29)
--- NOTE | 2018-10-21 14:08 | Operative Report ---
Operative Report Operative Report: DATE OF SERVICE:10/21/18 SURGEON: Mikey Reese MD COLONOSCOPY REPORT PREOPERATIVE AND POSTOPERATIVE DIAGNOSIS: Anemia DESCRIPTION OF PROCEDURE: The colonoscope was passed to the terminal ileum as identified by the ileal tissue. Scope was carefully withdrawn. Retroflexion was performed in the rectum. At the end of procedure, the scope was cleaned using normal technique. Vital signs monitored continuously throughout. SEDATION: Provided by [facility]. Quality of the prep was adequate. COMPLICATIONS: None. ESTIMATED BLOOD LOSS: None FINDINGS: * Normal Terminal Ileum * Small to moderate RECOMMENDATIONS: * Resume heparin drip and trend Hgb * No source for bleeding on Colonoscopy, no clear source on EGD (see EGD report for full details/recs), patient should see us in clinic as an outpatient for pillcam * From GI standpoint we will sign off and please call us back for overt bleeding * Quality of the colonoscopy was not sufficient to rule out small/flat/subtle lesions
--- NOTE | 2018-10-21 14:20 | Operative Report ---
Operative Report Operative Report: DATE OF SERVICE: 10/21/18 SURGEON: Mikey Reese MD Push enteroscopy with biopsy REPORT PREOPERATIVE DIAGNOSIS and POSTOPERATIVE DIAGNOSIS: Anemia ESTIMATED BLOOD LOSS: minimal DESCRIPTION OF PROCEDURE: A high-resolution pediatric colonoscope was passed through the oropharynx, esophagus, stomach, duodenum to the proximal jejunum. The scope was carefully withdrawn. Retroflexion was performed in the stomach. At the end of the procedure, the scope was cleaned using normal technique. Vital signs monitored continuously throughout. SEDATION: Provided by [facility]. COMPLICATIONS: None. FINDINGS: * Normal Jejunum * Normal Duodenum * Mild gastritis of the antrum, Biopsies were taken to rule out H. Pylori infection. A total of 6 biopsies were taken, 2 from the antrum, 1 from the incisura, 2 from the body. * Z line at 40cm from the incisors * Normal Esophagus * Small amount of old blood at the level of the vocal cords, suctioned successfully, source not seen RECOMMENDATIONS: * F/u path results * No source for GI bleeding on Enteroscopy * Patient should consider ENT evaluation to ensure no ENT source for bleeding * Proceed with colonoscopy
[2018-10-21] MEDS ORDERED: ROBINUL ONE (14:24)
--- NOTE | 2018-10-21 15:44 | Progress Note ---
Assessment and Plan Acute hypoxemic respiratory failure, on mechanical ventilatory support. Symptomatic hypoglycemia. Seizures, possibly related to the hypoglycemia. Acute encephalopathy, toxic metabolic. Mild Hyponatremia Mechanical heart valve (mitral) History of cardiomyopathy. (EF 40%) Right pleural effusion. Pulmonary edema bilateral. History of diabetes. Hypertension. Coagulopathy that is probably related to her Coumadin use at home. - anticoagulation per cardiology recommendations - prn BIPAP at this point - cardiology evaluation ongoing (optimize cardiac function per cardiology team) - G.I. evaluation ongoing - s/p AB's course - continue bronchodilators with pulmonary hygiene per RT - continue GI prophylaxis - continue to wean supplemental oxygen to keep O2 sats > 90% - Continue cardioprotective measures - Replete electrolytes as indicated - Monitor renal indices closely - Avoid nephrotoxic agents, adjust all medications for CrCL - contiinue strict intake and output monitoring - advance diet per ST - Accuchecks with glycemic control. Target glucose of 140-180 mg/dL - Maintenance of sleep -wake cycle - Mobility as tolerated by hemodynamics - Influenza and pneumonia vaccination per protocol CODE STATUS: FULL CODE Subjective Date of service: 10/21/18 Principal diagnosis: Ac hypoxemic resp failure; Seizures (?hypoglycemic); Ac encephalopathy(T/M) Interval history: Patient is seen today for: Acute hypoxemic respiratory failure, on mechanical ventilatory support; Symptomatic hypoglycemia; Seizures, possibly related to the hypoglycemia; Acute encephalopathy, toxic metabolic; Mild Hyponatremi; History of cardiomyopathy. (EF 40%) Seen and examined at bedside; 24hour events reviewed; nursing and respiratory care staff consulted; no adverse overnight events reported to me; resting peacefully in bed; remains on supplemental oxygen; denies acute chest pains or palpitations; No N/V/F/C; EGD and colonoscopy benign Objective Vital Signs - 12hr 10/21/18 10/21/18 10/21/18 04:51 08:22 08:40 Temperature 98.4 F Pulse Rate 94 H 92 H Respiratory 18 Rate Blood Pressure 118/74 136/80 136/80 O2 Sat by Pulse 100 Oximetry 10/21/18 10/21/18 10/21/18 11:10 12:05 14:04 Temperature 98.0 F 98.8 F 98.9 F Pulse Rate 86 84 89 Respiratory 12 12 25 H Rate Blood Pressure 119/69 114/68 126/82 O2 Sat by Pulse 100 100 100 Oximetry 10/21/18 10/21/18 14:21 14:32 Temperature Pulse Rate 89 90 Respiratory 19 13 Rate Blood Pressure 138/79 132/79 O2 Sat by Pulse 100 100 Oximetry Constitutional: no acute distress, other (middle aged AAF, normocephalic and with mildly increased resp effort at rest) Eyes: non-icteric ENT: oropharynx moist, other (extubated) Neck: supple, no lymphadenopathy, no JVD, other (mallampati 2) Effort: mildly labored Ascultation: Bilateral: rhonchi Percussion: Bilateral: not dull Cardiovascular: regular rate and rhythm, other (+ metalic valve click) Gastrointestinal: normoactive bowel sounds, soft, non-tender, non-distended, other (No HSM) Integumentary: normal Extremities: no cyanosis, no edema, pulses normal, no ischemia or petechiae Neurologic: non-focal exam (grossly), pupils equal and round, CN II-XII normal, motor strength normal and Psychiatric: mood appropriate, affect normal CBC and BMP: 10/30/18 05:04 10/29/18 15:19 ABG, PT/INR, D-dimer: ABG POC ABG pH 7.458 (7.35-7.45) H 10/19/18 19:56 POC ABG pCO2 37.9 (35-45) 10/19/18 19:56 POC ABG pO2 63 (80-105) L 10/19/18 19:56 POC ABG HCO3 26.8 (22-26 mml/L) 10/19/18 19:56 POC ABG Total CO2 28 (23-27mmol/L) 10/19/18 19:56 POC ABG O2 Sat 93 10/19/18 19:56 PT/INR, D-dimer PT 16.9 Sec. (12.2-14.9) H 10/21/18 05:45 INR 1.29 (0.87-1.13) H 10/21/18 05:45 Abnormal lab findings: Abnormal Labs 10/07/18 10/07/18 10/07/18 02:20 02:43 02:43 WBC RBC Hgb Hct MCH 25 L RDW 21.5 H Lymph % (Auto) [place] % (Auto) Lymph # 0.9 L [place] # Baso # Seg Neutrophils % 78.4 H Seg Neuts % (Manual) Lymphocytes % (Manual) Seg Neutrophils # Seg Neutrophils # Man Lymphocytes # (Manual) PT INR APTT Heparin Anti-Xa Level POC ABG pH POC ABG pCO2 POC ABG pO2 Sodium Potassium Chloride 108.0 H Carbon Dioxide 21 L BUN Creatinine 1.5 H Glucose 115 H POC Glucose 136 H Hemoglobin A1c Lactic Acid Calcium Phosphorus AST 51 H Alkaline Phosphatase 257 H NT-Pro-B Natriuret Pep Total Protein Albumin Crossmatch 10/07/18 10/07/18 10/07/18 02:43 04:32 05:12 WBC RBC Hgb Hct MCH RDW Lymph % (Auto) [place] % (Auto) Lymph # [place] # Baso # Seg Neutrophils % Seg Neuts % (Manual) Lymphocytes % (Manual) Seg Neutrophils # Seg Neutrophils # Man Lymphocytes # (Manual) PT 25.4 H INR 2.14 H APTT Heparin Anti-Xa Level POC ABG pH POC ABG pCO2 33.6 L POC ABG pO2 69 L Sodium Potassium Chloride Carbon Dioxide BUN Creatinine Glucose POC Glucose Hemoglobin A1c Lactic Acid 2.40 H* Calcium Phosphorus AST Alkaline Phosphatase NT-Pro-B Natriuret Pep Total Protein Albumin Crossmatch 10/07/18 10/07/18 10/07/18 06:28 18:39 20:26 WBC RBC Hgb Hct MCH RDW Lymph % (Auto) [place] % (Auto) Lymph # [place] # Baso # Seg Neutrophils % Seg Neuts % (Manual) Lymphocytes % (Manual) Seg Neutrophils # Seg Neutrophils # Man Lymphocytes # (Manual) PT INR APTT Heparin Anti-Xa Level POC ABG pH POC ABG pCO2 POC ABG pO2 Sodium Potassium Chloride Carbon Dioxide BUN Creatinine Glucose POC Glucose 164 H 440 H > 500 H Hemoglobin A1c Lactic Acid Calcium Phosphorus AST Alkaline Phosphatase NT-Pro-B Natriuret Pep Total Protein Albumin Crossmatch 10/07/18 10/07/18 10/07/18 20:28 21:53 22:08 WBC RBC Hgb Hct MCH RDW Lymph % (Auto) [place] % (Auto) Lymph # [place] # Baso # Seg Neutrophils % Seg Neuts % (Manual) Lymphocytes % (Manual) Seg Neutrophils # Seg Neutrophils # Man Lymphocytes # (Manual) PT INR APTT Heparin Anti-Xa Level POC ABG pH POC ABG pCO2 POC ABG pO2 Sodium 136 L D Potassium 6.4 H* D Chloride Carbon Dioxide 10 L D BUN 30 H Creatinine 2.0 H Glucose 544 H* POC Glucose 483 H > 500 H Hemoglobin A1c Lactic Acid Calcium 7.0 L D Phosphorus AST Alkaline Phosphatase NT-Pro-B Natriuret Pep Total Protein Albumin Crossmatch 10/07/18 10/07/18 10/07/18 22:08 22:08 22:56 WBC RBC Hgb Hct MCH RDW Lymph % (Auto) [place] % (Auto) Lymph # [place] # Baso # Seg Neutrophils % Seg Neuts % (Manual) Lymphocytes % (Manual) Seg Neutrophils # Seg Neutrophils # Man Lymphocytes # (Manual) PT INR APTT Heparin Anti-Xa Level POC ABG pH POC ABG pCO2 POC ABG pO2 Sodium Potassium Chloride Carbon Dioxide BUN Creatinine Glucose POC Glucose 462 H Hemoglobin A1c 10.2 H Lactic Acid Calcium Phosphorus 7.40 H AST Alkaline Phosphatase NT-Pro-B Natriuret Pep Total Protein Albumin Crossmatch 10/07/18 10/08/18 10/08/18 23:39 00:58 02:09 WBC RBC Hgb Hct MCH RDW Lymph % (Auto) [place] % (Auto) Lymph # [place] # Baso # Seg Neutrophils % Seg Neuts % (Manual) Lymphocytes % (Manual) Seg Neutrophils # Seg Neutrophils # Man Lymphocytes # (Manual) PT INR APTT Heparin Anti-Xa Level POC ABG pH POC ABG pCO2 POC ABG pO2 Sodium Potassium Chloride Carbon Dioxide BUN Creatinine Glucose POC Glucose 396 H 375 H 285 H Hemoglobin A1c Lactic Acid Calcium Phosphorus AST Alkaline Phosphatase NT-Pro-B Natriuret Pep Total Protein Albumin Crossmatch 10/08/18 10/08/18 10/08/18 03:10 03:33 04:05 WBC RBC Hgb Hct MCH RDW Lymph % (Auto) [place] % (Auto) Lymph # [place] # Baso # Seg Neutrophils % Seg Neuts % (Manual) Lymphocytes % (Manual) Seg Neutrophils # Seg Neutrophils # Man Lymphocytes # (Manual) PT INR APTT Heparin Anti-Xa Level POC ABG pH 7.243 L POC ABG pCO2 33.8 L POC ABG pO2 126 H Sodium Potassium 5.3 H Chloride 110.7 H Carbon Dioxide 14 L BUN 33 H Creatinine 2.2 H Glucose 193 H POC Glucose 251 H Hemoglobin A1c Lactic Acid Calcium 7.0 L Phosphorus AST Alkaline Phosphatase 155 H NT-Pro-B Natriuret Pep Total Protein 5.2 L D Albumin 2.6 L Crossmatch 10/08/18 10/08/18 10/08/18 04:05 04:05 04:09 WBC 11.8 H RBC 3.32 L Hgb 8.3 L Hct 27.5 L D MCH 25 L RDW 22.0 H Lymph % (Auto) 6.8 L [place] % (Auto) 12.0 H Lymph # 0.8 L [place] # 1.4 H Baso # Seg Neutrophils % 80.6 H Seg Neuts % (Manual) Lymphocytes % (Manual) Seg Neutrophils # 9.5 H Seg Neutrophils # Man Lymphocytes # (Manual) PT INR APTT Heparin Anti-Xa Level POC ABG pH POC ABG pCO2 POC ABG pO2 Sodium Potassium Chloride Carbon Dioxide BUN Creatinine Glucose POC Glucose 175 H Hemoglobin A1c Lactic Acid 3.70 H* Calcium Phosphorus AST Alkaline Phosphatase NT-Pro-B Natriuret Pep Total Protein Albumin Crossmatch 10/08/18 10/08/18 10/08/18 05:07 06:05 07:14 WBC RBC Hgb Hct MCH RDW Lymph % (Auto) [place] % (Auto) Lymph # [place] # Baso # Seg Neutrophils % Seg Neuts % (Manual) Lymphocytes % (Manual) Seg Neutrophils # Seg Neutrophils # Man Lymphocytes # (Manual) PT INR APTT Heparin Anti-Xa Level POC ABG pH POC ABG pCO2 POC ABG pO2 Sodium Potassium Chloride Carbon Dioxide BUN Creatinine Glucose POC Glucose 125 H 122 H 147 H Hemoglobin A1c Lactic Acid Calcium Phosphorus AST Alkaline Phosphatase NT-Pro-B Natriuret Pep Total Protein Albumin Crossmatch 10/08/18 10/08/18 10/08/18 07:22 08:09 08:47 WBC RBC Hgb Hct MCH RDW Lymph % (Auto) [place] % (Auto) Lymph # [place] # Baso # Seg Neutrophils % Seg Neuts % (Manual) Lymphocytes % (Manual) Seg Neutrophils # Seg Neutrophils # Man Lymphocytes # (Manual) PT INR APTT Heparin Anti-Xa Level POC ABG pH POC ABG pCO2 POC ABG pO2 Sodium Potassium 5.2 H Chloride 112.4 H Carbon Dioxide 17 L BUN 32 H Creatinine 2.1 H Glucose 148 H POC Glucose 134 H 148 H Hemoglobin A1c Lactic Acid Calcium 6.6 L Phosphorus AST Alkaline Phosphatase NT-Pro-B Natriuret Pep Total Protein Albumin Crossmatch 10/08/18 10/08/18 10/08/18 10:21 13:29 14:21 WBC RBC Hgb Hct MCH RDW Lymph % (Auto) [place] % (Auto) Lymph # [place] # Baso # Seg Neutrophils % Seg Neuts % (Manual) Lymphocytes % (Manual) Seg Neutrophils # Seg Neutrophils # Man Lymphocytes # (Manual) PT INR APTT Heparin Anti-Xa Level POC ABG pH POC ABG pCO2 POC ABG pO2 Sodium Potassium Chloride Carbon Dioxide BUN Creatinine Glucose POC Glucose 115 H 109 H 118 H Hemoglobin A1c Lactic Acid Calcium Phosphorus AST Alkaline Phosphatase NT-Pro-B Natriuret Pep Total Protein Albumin Crossmatch 10/08/18 10/08/18 10/08/18 15:27 17:00 17:00 WBC 11.3 H RBC 3.21 L Hgb 7.9 L Hct 25.7 L MCH 25 L RDW 21.8 H Lymph % (Auto) 8.5 L [place] % (Auto) 7.7 H Lymph # 1.0 L [place] # 0.9 H Baso # Seg Neutrophils % 82.8 H Seg Neuts % (Manual) Lymphocytes % (Manual) Seg Neutrophils # 9.3 H Seg Neutrophils # Man Lymphocytes # (Manual) PT INR APTT Heparin Anti-Xa Level POC ABG pH POC ABG pCO2 POC ABG pO2 Sodium Potassium Chloride Carbon Dioxide BUN Creatinine Glucose POC Glucose 129 H Hemoglobin A1c Lactic Acid Calcium Phosphorus AST Alkaline Phosphatase NT-Pro-B Natriuret Pep 3097 H Total Protein Albumin Crossmatch 10/08/18 10/08/18 10/08/18 17:07 17:12 18:22 WBC RBC Hgb Hct MCH RDW Lymph % (Auto) [place] % (Auto) Lymph # [place] # Baso # Seg Neutrophils % Seg Neuts % (Manual) Lymphocytes % (Manual) Seg Neutrophils # Seg Neutrophils # Man Lymphocytes # (Manual) PT INR APTT Heparin Anti-Xa Level POC ABG pH 7.337 L POC ABG pCO2 32.0 L POC ABG pO2 130 H Sodium Potassium Chloride 115.5 H Carbon Dioxide 17 L BUN 30 H Creatinine 1.9 H Glucose 103 H POC Glucose 119 H Hemoglobin A1c Lactic Acid Calcium 6.9 L Phosphorus AST Alkaline Phosphatase NT-Pro-B Natriuret Pep Total Protein Albumin Crossmatch 10/08/18 10/08/18 10/09/18 20:09 20:57 01:10 WBC RBC Hgb Hct MCH RDW Lymph % (Auto) [place] % (Auto) Lymph # [place] # Baso # Seg Neutrophils % Seg Neuts % (Manual) Lymphocytes % (Manual) Seg Neutrophils # Seg Neutrophils # Man Lymphocytes # (Manual) PT INR APTT Heparin Anti-Xa Level POC ABG pH POC ABG pCO2 POC ABG pO2 Sodium Potassium Chloride 114.3 H 113.7 H Carbon Dioxide 15 L 14 L BUN 29 H 29 H Creatinine 2.1 H 2.0 H Glucose 132 H 39 L* POC Glucose 150 H Hemoglobin A1c Lactic Acid Calcium 6.7 L 6.9 L Phosphorus AST Alkaline Phosphatase NT-Pro-B Natriuret Pep Total Protein Albumin Crossmatch 10/09/18 10/09/18 10/09/18 01:10 01:43 03:20 WBC RBC Hgb Hct MCH RDW Lymph % (Auto) [place] % (Auto) Lymph # [place] # Baso # Seg Neutrophils % Seg Neuts % (Manual) Lymphocytes % (Manual) Seg Neutrophils # Seg Neutrophils # Man Lymphocytes # (Manual) PT INR APTT Heparin Anti-Xa Level POC ABG pH POC ABG pCO2 POC ABG pO2 Sodium Potassium Chloride Carbon Dioxide BUN Creatinine Glucose POC Glucose < 40 L < 40 L Hemoglobin A1c Lactic Acid Calcium Phosphorus AST Alkaline Phosphatase NT-Pro-B Natriuret Pep 2865 H Total Protein Albumin Crossmatch 10/09/18 10/09/18 10/09/18 04:23 05:03 05:25 WBC RBC Hgb Hct MCH RDW Lymph % (Auto) [place] % (Auto) Lymph # [place] # Baso # Seg Neutrophils % Seg Neuts % (Manual) Lymphocytes % (Manual) Seg Neutrophils # Seg Neutrophils # Man Lymphocytes # (Manual) PT INR APTT Heparin Anti-Xa Level POC ABG pH POC ABG pCO2 30.6 L 32.3 L POC ABG pO2 118 H Sodium Potassium Chloride Carbon Dioxide BUN Creatinine Glucose POC Glucose 148 H Hemoglobin A1c Lactic Acid Calcium Phosphorus AST Alkaline Phosphatase NT-Pro-B Natriuret Pep Total Protein Albumin Crossmatch 10/09/18 10/09/18 10/09/18 06:00 08:34 09:58 WBC RBC Hgb Hct MCH RDW Lymph % (Auto) [place] % (Auto) Lymph # [place] # Baso # Seg Neutrophils % Seg Neuts % (Manual) Lymphocytes % (Manual) Seg Neutrophils # Seg Neutrophils # Man Lymphocytes # (Manual) PT INR APTT Heparin Anti-Xa Level POC ABG pH POC ABG pCO2 POC ABG pO2 Sodium Potassium Chloride Carbon Dioxide BUN Creatinine Glucose POC Glucose 173 H 196 H 183 H Hemoglobin A1c Lactic Acid Calcium Phosphorus AST Alkaline Phosphatase NT-Pro-B Natriuret Pep Total Protein Albumin Crossmatch 10/09/18 10/09/18 10/09/18 12:25 12:46 18:16 WBC RBC Hgb Hct MCH RDW Lymph % (Auto) [place] % (Auto) Lymph # [place] # Baso # Seg Neutrophils % Seg Neuts % (Manual) Lymphocytes % (Manual) Seg Neutrophils # Seg Neutrophils # Man Lymphocytes # (Manual) PT INR APTT Heparin Anti-Xa Level POC ABG pH POC ABG pCO2 POC ABG pO2 Sodium Potassium Chloride 110.3 H Carbon Dioxide 16 L BUN 24 H Creatinine 1.8 H Glucose 207 H POC Glucose 208 H 177 H Hemoglobin A1c Lactic Acid Calcium 6.9 L Phosphorus AST Alkaline Phosphatase NT-Pro-B Natriuret Pep Total Protein Albumin Crossmatch 10/09/18 10/10/18 10/10/18 21:11 00:11 05:41 WBC RBC Hgb Hct MCH RDW Lymph % (Auto) [place] % (Auto) Lymph # [place] # Baso # Seg Neutrophils % Seg Neuts % (Manual) Lymphocytes % (Manual) Seg Neutrophils # Seg Neutrophils # Man Lymphocytes # (Manual) PT INR APTT Heparin Anti-Xa Level POC ABG pH POC ABG pCO2 POC ABG pO2 Sodium Potassium Chloride Carbon Dioxide BUN Creatinine Glucose POC Glucose 124 H 156 H 42 L Hemoglobin A1c Lactic Acid Calcium Phosphorus AST Alkaline Phosphatase NT-Pro-B Natriuret Pep Total Protein Albumin Crossmatch 10/10/18 10/10/18 10/10/18 05:45 07:28 12:07 WBC RBC Hgb Hct MCH RDW Lymph % (Auto) [place] % (Auto) Lymph # [place] # Baso # Seg Neutrophils % Seg Neuts % (Manual) Lymphocytes % (Manual) Seg Neutrophils # Seg Neutrophils # Man Lymphocytes # (Manual) PT INR APTT Heparin Anti-Xa Level POC ABG pH POC ABG pCO2 POC ABG pO2 Sodium 146 H D Potassium Chloride 111.2 H Carbon Dioxide BUN 21 H Creatinine 1.8 H Glucose 44 L POC Glucose 114 H 49 L Hemoglobin A1c Lactic Acid Calcium 7.4 L Phosphorus AST Alkaline Phosphatase NT-Pro-B Natriuret Pep Total Protein Albumin Crossmatch 10/10/18 10/10/18 10/10/18 12:37 18:02 20:47 WBC RBC Hgb Hct MCH RDW Lymph % (Auto) [place] % (Auto) Lymph # [place] # Baso # Seg Neutrophils % Seg Neuts % (Manual) Lymphocytes % (Manual) Seg Neutrophils # Seg Neutrophils # Man Lymphocytes # (Manual) PT INR APTT Heparin Anti-Xa Level POC ABG pH POC ABG pCO2 POC ABG pO2 Sodium Potassium Chloride Carbon Dioxide BUN Creatinine Glucose POC Glucose 142 H 49 L 162 H Hemoglobin A1c Lactic Acid Calcium Phosphorus AST Alkaline Phosphatase NT-Pro-B Natriuret Pep Total Protein Albumin Crossmatch 10/10/18 10/10/18 10/10/18 21:45 22:19 23:50 WBC RBC Hgb Hct MCH RDW Lymph % (Auto) [place] % (Auto) Lymph # [place] # Baso # Seg Neutrophils % Seg Neuts % (Manual) Lymphocytes % (Manual) Seg Neutrophils # Seg Neutrophils # Man Lymphocytes # (Manual) PT INR APTT Heparin Anti-Xa Level POC ABG pH 7.334 L POC ABG pCO2 47.0 H POC ABG pO2 53 L 79 L Sodium Potassium Chloride Carbon Dioxide BUN Creatinine Glucose POC Glucose 185 H Hemoglobin A1c Lactic Acid Calcium Phosphorus AST Alkaline Phosphatase NT-Pro-B Natriuret Pep Total Protein Albumin Crossmatch 10/11/18 10/11/18 10/11/18 05:00 06:41 07:17 WBC RBC Hgb Hct MCH RDW Lymph % (Auto) [place] % (Auto) Lymph # [place] # Baso # Seg Neutrophils % Seg Neuts % (Manual) Lymphocytes % (Manual) Seg Neutrophils # Seg Neutrophils # Man Lymphocytes # (Manual) PT INR APTT Heparin Anti-Xa Level POC ABG pH POC ABG pCO2 POC ABG pO2 Sodium Potassium Chloride Carbon Dioxide BUN Creatinine 1.7 H Glucose 43 L POC Glucose 48 L 129 H Hemoglobin A1c Lactic Acid Calcium 7.7 L Phosphorus AST Alkaline Phosphatase NT-Pro-B Natriuret Pep Total Protein Albumin Crossmatch 10/11/18 10/11/18 10/11/18 11:14 13:32 14:25 WBC RBC 3.32 L Hgb 8.2 L Hct 26.4 L MCH 25 L RDW 21.6 H Lymph % (Auto) [place] % (Auto) Lymph # [place] # Baso # Seg Neutrophils % Seg Neuts % (Manual) Lymphocytes % (Manual) Seg Neutrophils # Seg Neutrophils # Man Lymphocytes # (Manual) PT 21.7 H INR 1.76 H APTT 50.5 H Heparin Anti-Xa Level POC ABG pH POC ABG pCO2 POC ABG pO2 Sodium Potassium Chloride Carbon Dioxide BUN Creatinine Glucose POC Glucose 138 H Hemoglobin A1c Lactic Acid Calcium Phosphorus AST Alkaline Phosphatase NT-Pro-B Natriuret Pep Total Protein Albumin Crossmatch 10/11/18 10/11/18 10/11/18 14:25 15:41 17:31 WBC RBC Hgb Hct MCH RDW Lymph % (Auto) [place] % (Auto) Lymph # [place] # Baso # Seg Neutrophils % Seg Neuts % (Manual) Lymphocytes % (Manual) Seg Neutrophils # Seg Neutrophils # Man Lymphocytes # (Manual) PT 20.6 H INR 1.65 H APTT 54.9 H Heparin Anti-Xa Level POC ABG pH POC ABG pCO2 POC ABG pO2 53 L Sodium Potassium Chloride Carbon Dioxide BUN Creatinine Glucose POC Glucose 133 H Hemoglobin A1c Lactic Acid Calcium Phosphorus AST Alkaline Phosphatase NT-Pro-B Natriuret Pep Total Protein Albumin Crossmatch 10/12/18 10/12/18 10/12/18 00:30 03:56 04:25 WBC RBC Hgb Hct MCH RDW Lymph % (Auto) [place] % (Auto) Lymph # [place] # Baso # Seg Neutrophils % Seg Neuts % (Manual) Lymphocytes % (Manual) Seg Neutrophils # Seg Neutrophils # Man Lymphocytes # (Manual) PT INR APTT Heparin Anti-Xa Level POC ABG pH 7.514 H POC ABG pCO2 31.2 L POC ABG pO2 Sodium Potassium Chloride Carbon Dioxide BUN Creatinine 1.6 H Glucose 287 H POC Glucose 353 H Hemoglobin A1c Lactic Acid Calcium 8.0 L Phosphorus AST Alkaline Phosphatase NT-Pro-B Natriuret Pep Total Protein Albumin Crossmatch 10/12/18 10/12/18 10/12/18 04:49 12:13 17:53 WBC RBC Hgb Hct MCH RDW Lymph % (Auto) [place] % (Auto) Lymph # [place] # Baso # Seg Neutrophils % Seg Neuts % (Manual) Lymphocytes % (Manual) Seg Neutrophils # Seg Neutrophils # Man Lymphocytes # (Manual) PT INR APTT Heparin Anti-Xa Level POC ABG pH POC ABG pCO2 POC ABG pO2 Sodium Potassium Chloride Carbon Dioxide BUN Creatinine Glucose POC Glucose 297 H 290 H 211 H Hemoglobin A1c Lactic Acid Calcium Phosphorus AST Alkaline Phosphatase NT-Pro-B Natriuret Pep Total Protein Albumin Crossmatch 10/12/18 10/12/18 10/13/18 18:57 21:35 04:50 WBC 11.8 H RBC 3.08 L Hgb 7.4 L Hct 24.2 L MCH 24 L RDW 21.5 H Lymph % (Auto) [place] % (Auto) Lymph # [place] # Baso # Seg Neutrophils % Seg Neuts % (Manual) Lymphocytes % (Manual) Seg Neutrophils # Seg Neutrophils # Man Lymphocytes # (Manual) PT INR APTT Heparin Anti-Xa Level 1.74 H POC ABG pH 7.497 H POC ABG pCO2 33.2 L POC ABG pO2 71 L Sodium Potassium Chloride Carbon Dioxide BUN Creatinine Glucose POC Glucose Hemoglobin A1c Lactic Acid Calcium Phosphorus AST Alkaline Phosphatase NT-Pro-B Natriuret Pep Total Protein Albumin Crossmatch 10/13/18 10/13/18 10/13/18 05:25 05:25 05:37 WBC 12.1 H RBC 3.02 L Hgb 7.4 L Hct 23.7 L MCH 25 L RDW 21.0 H Lymph % (Auto) 9.6 L [place] % (Auto) 10.0 H Lymph # [place] # 1.2 H Baso # Seg Neutrophils % 76.2 H Seg Neuts % (Manual) Lymphocytes % (Manual) Seg Neutrophils # 9.2 H Seg Neutrophils # Man Lymphocytes # (Manual) PT INR APTT Heparin Anti-Xa Level POC ABG pH POC ABG pCO2 POC ABG pO2 Sodium Potassium Chloride Carbon Dioxide BUN Creatinine 1.6 H Glucose 175 H POC Glucose 165 H Hemoglobin A1c Lactic Acid Calcium 8.3 L Phosphorus AST Alkaline Phosphatase NT-Pro-B Natriuret Pep Total Protein Albumin Crossmatch 10/13/18 10/13/18 10/13/18 06:45 11:12 17:19 WBC RBC Hgb Hct MCH RDW Lymph % (Auto) [place] % (Auto) Lymph # [place] # Baso # Seg Neutrophils % Seg Neuts % (Manual) Lymphocytes % (Manual) Seg Neutrophils # Seg Neutrophils # Man Lymphocytes # (Manual) PT 17.4 H INR 1.34 H APTT Heparin Anti-Xa Level POC ABG pH POC ABG pCO2 POC ABG pO2 Sodium Potassium Chloride Carbon Dioxide BUN Creatinine Glucose POC Glucose 223 H 129 H Hemoglobin A1c Lactic Acid Calcium Phosphorus AST Alkaline Phosphatase NT-Pro-B Natriuret Pep Total Protein Albumin Crossmatch 10/13/18 10/14/18 10/14/18 23:39 05:01 06:14 WBC RBC Hgb Hct MCH RDW Lymph % (Auto) [place] % (Auto) Lymph # [place] # Baso # Seg Neutrophils % Seg Neuts % (Manual) Lymphocytes % (Manual) Seg Neutrophils # Seg Neutrophils # Man Lymphocytes # (Manual) PT INR APTT Heparin Anti-Xa Level POC ABG pH POC ABG pCO2 POC ABG pO2 Sodium Potassium Chloride Carbon Dioxide BUN Creatinine 1.5 H Glucose 264 H POC Glucose 171 H 226 H Hemoglobin A1c Lactic Acid Calcium 8.0 L Phosphorus AST Alkaline Phosphatase NT-Pro-B Natriuret Pep Total Protein Albumin Crossmatch 10/14/18 10/14/18 10/14/18 06:14 12:24 19:33 WBC RBC Hgb Hct MCH RDW Lymph % (Auto) [place] % (Auto) Lymph # [place] # Baso # Seg Neutrophils % Seg Neuts % (Manual) Lymphocytes % (Manual) Seg Neutrophils # Seg Neutrophils # Man Lymphocytes # (Manual) PT 22.1 H INR 1.80 H APTT Heparin Anti-Xa Level POC ABG pH POC ABG pCO2 POC ABG pO2 Sodium Potassium Chloride Carbon Dioxide BUN Creatinine Glucose POC Glucose 403 H 164 H Hemoglobin A1c Lactic Acid Calcium Phosphorus AST Alkaline Phosphatase NT-Pro-B Natriuret Pep Total Protein Albumin Crossmatch 10/15/18 10/15/18 10/15/18 00:29 06:03 07:00 WBC RBC Hgb Hct MCH RDW Lymph % (Auto) [place] % (Auto) Lymph # [place] # Baso # Seg Neutrophils % Seg Neuts % (Manual) Lymphocytes % (Manual) Seg Neutrophils # Seg Neutrophils # Man Lymphocytes # (Manual) PT INR APTT Heparin Anti-Xa Level POC ABG pH POC ABG pCO2 POC ABG pO2 Sodium Potassium Chloride Carbon Dioxide BUN 20 H Creatinine 1.7 H Glucose 308 H POC Glucose 237 H 282 H Hemoglobin A1c Lactic Acid Calcium 7.6 L Phosphorus AST Alkaline Phosphatase NT-Pro-B Natriuret Pep Total Protein Albumin Crossmatch 10/15/18 10/15/18 10/15/18 07:00 08:03 10:27 WBC RBC Hgb 5.8 L* Hct 18.5 L* MCH RDW Lymph % (Auto) [place] % (Auto) Lymph # [place] # Baso # Seg Neutrophils % Seg Neuts % (Manual) Lymphocytes % (Manual) Seg Neutrophils # Seg Neutrophils # Man Lymphocytes # (Manual) PT 46.1 H INR 4.52 H APTT Heparin Anti-Xa Level 0.25 L POC ABG pH POC ABG pCO2 POC ABG pO2 Sodium Potassium Chloride Carbon Dioxide BUN Creatinine Glucose POC Glucose Hemoglobin A1c Lactic Acid Calcium Phosphorus AST Alkaline Phosphatase NT-Pro-B Natriuret Pep Total Protein Albumin Crossmatch See Detail 10/15/18 10/15/18 10/16/18 14:03 15:30 10:18 WBC RBC Hgb Hct MCH RDW Lymph % (Auto) [place] % (Auto) Lymph # [place] # Baso # Seg Neutrophils % Seg Neuts % (Manual) Lymphocytes % (Manual) Seg Neutrophils # Seg Neutrophils # Man Lymphocytes # (Manual) PT 53.8 H INR 5.48 H* APTT Heparin Anti-Xa Level POC ABG pH POC ABG pCO2 POC ABG pO2 Sodium Potassium Chloride Carbon Dioxide BUN Creatinine Glucose POC Glucose 336 H 259 H Hemoglobin A1c Lactic Acid Calcium Phosphorus AST Alkaline Phosphatase NT-Pro-B Natriuret Pep Total Protein Albumin Crossmatch 10/16/18 10/16/18 10/16/18 10:18 10:18 13:03 WBC 14.8 H RBC 3.03 L Hgb 8.2 L Hct 24.9 L D MCH 27 L RDW 19.2 H Lymph % (Auto) 5.7 L [place] % (Auto) Lymph # 0.8 L [place] # 1.1 H Baso # 0.2 H Seg Neutrophils % 84.3 H Seg Neuts % (Manual) Lymphocytes % (Manual) Seg Neutrophils # 12.5 H Seg Neutrophils # Man Lymphocytes # (Manual) PT INR APTT Heparin Anti-Xa Level POC ABG pH POC ABG pCO2 POC ABG pO2 Sodium Potassium Chloride Carbon Dioxide 20 L BUN 21 H Creatinine 1.5 H Glucose 326 H POC Glucose 329 H Hemoglobin A1c Lactic Acid Calcium 7.8 L Phosphorus AST Alkaline Phosphatase NT-Pro-B Natriuret Pep Total Protein Albumin Crossmatch 10/16/18 10/17/18 10/17/18 13:27 00:35 05:00 WBC RBC Hgb Hct MCH RDW Lymph % (Auto) [place] % (Auto) Lymph # [place] # Baso # Seg Neutrophils % Seg Neuts % (Manual) Lymphocytes % (Manual) Seg Neutrophils # Seg Neutrophils # Man Lymphocytes # (Manual) PT 55.4 H 60.2 H INR 5.68 H* 6.30 H* APTT Heparin Anti-Xa Level POC ABG pH POC ABG pCO2 POC ABG pO2 Sodium Potassium Chloride Carbon Dioxide BUN Creatinine Glucose POC Glucose 407 H Hemoglobin A1c Lactic Acid Calcium Phosphorus AST Alkaline Phosphatase NT-Pro-B Natriuret Pep Total Protein Albumin Crossmatch 10/17/18 10/17/18 10/17/18 05:00 05:00 05:29 WBC 11.6 H RBC 2.99 L Hgb 8.0 L Hct 24.2 L MCH 27 L RDW 19.2 H Lymph % (Auto) [place] % (Auto) Lymph # [place] # Baso # Seg Neutrophils % Seg Neuts % (Manual) 87.0 H Lymphocytes % (Manual) 9.0 L Seg Neutrophils # Seg Neutrophils # Man 10.1 H Lymphocytes # (Manual) 1.0 L PT INR APTT Heparin Anti-Xa Level POC ABG pH POC ABG pCO2 POC ABG pO2 Sodium Potassium 3.4 L D Chloride Carbon Dioxide BUN Creatinine 1.4 H Glucose 170 H POC Glucose 156 H Hemoglobin A1c Lactic Acid Calcium 7.6 L Phosphorus AST Alkaline Phosphatase NT-Pro-B Natriuret Pep Total Protein 5.4 L Albumin 2.2 L Crossmatch 10/17/18 10/17/18 10/18/18 11:59 17:06 00:21 WBC RBC Hgb Hct MCH RDW Lymph % (Auto) [place] % (Auto) Lymph # [place] # Baso # Seg Neutrophils % Seg Neuts % (Manual) Lymphocytes % (Manual) Seg Neutrophils # Seg Neutrophils # Man Lymphocytes # (Manual) PT INR APTT Heparin Anti-Xa Level POC ABG pH POC ABG pCO2 POC ABG pO2 Sodium Potassium Chloride Carbon Dioxide BUN Creatinine Glucose POC Glucose 389 H 151 H 355 H Hemoglobin A1c Lactic Acid Calcium Phosphorus AST Alkaline Phosphatase NT-Pro-B Natriuret Pep Total Protein Albumin Crossmatch 10/18/18 10/18/18 10/18/18 04:17 04:17 04:17 WBC RBC 3.01 L Hgb 8.1 L Hct 24.6 L MCH 27 L RDW 19.7 H Lymph % (Auto) 12.7 L [place] % (Auto) Lymph # [place] # Baso # Seg Neutrophils % 76.3 H Seg Neuts % (Manual) Lymphocytes % (Manual) Seg Neutrophils # 8.2 H Seg Neutrophils # Man Lymphocytes # (Manual) PT 39.5 H INR 3.72 H APTT Heparin Anti-Xa Level POC ABG pH POC ABG pCO2 POC ABG pO2 Sodium Potassium 3.5 L Chloride Carbon Dioxide BUN Creatinine 1.5 H Glucose 115 H POC Glucose Hemoglobin A1c Lactic Acid Calcium 7.4 L Phosphorus AST Alkaline Phosphatase NT-Pro-B Natriuret Pep Total Protein Albumin Crossmatch 10/18/18 10/18/18 10/18/18 06:45 13:39 17:12 WBC RBC Hgb Hct MCH RDW Lymph % (Auto) [place] % (Auto) Lymph # [place] # Baso # Seg Neutrophils % Seg Neuts % (Manual) Lymphocytes % (Manual) Seg Neutrophils # Seg Neutrophils # Man Lymphocytes # (Manual) PT INR APTT Heparin Anti-Xa Level POC ABG pH POC ABG pCO2 POC ABG pO2 Sodium Potassium Chloride Carbon Dioxide BUN Creatinine Glucose POC Glucose 170 H 415 H 377 H Hemoglobin A1c Lactic Acid Calcium Phosphorus AST Alkaline Phosphatase NT-Pro-B Natriuret Pep Total Protein Albumin Crossmatch 10/19/18 10/19/18 10/19/18 00:48 05:35 05:52 WBC RBC 2.84 L Hgb 7.7 L Hct 23.2 L MCH 27 L RDW 19.8 H Lymph % (Auto) 11.0 L [place] % (Auto) Lymph # 1.1 L [place] # Baso # Seg Neutrophils % 78.5 H Seg Neuts % (Manual) Lymphocytes % (Manual) Seg Neutrophils # 8.1 H Seg Neutrophils # Man Lymphocytes # (Manual) PT INR APTT Heparin Anti-Xa Level POC ABG pH POC ABG pCO2 POC ABG pO2 Sodium Potassium Chloride Carbon Dioxide BUN Creatinine Glucose POC Glucose 308 H 116 H Hemoglobin A1c Lactic Acid Calcium Phosphorus AST Alkaline Phosphatase NT-Pro-B Natriuret Pep Total Protein Albumin Crossmatch 10/19/18 10/19/18 10/19/18 05:52 07:12 09:41 WBC RBC Hgb 8.1 L Hct 24.6 L MCH RDW Lymph % (Auto) [place] % (Auto) Lymph # [place] # Baso # Seg Neutrophils % Seg Neuts % (Manual) Lymphocytes % (Manual) Seg Neutrophils # Seg Neutrophils # Man Lymphocytes # (Manual) PT 18.1 H INR 1.40 H APTT Heparin Anti-Xa Level POC ABG pH POC ABG pCO2 POC ABG pO2 Sodium Potassium Chloride Carbon Dioxide BUN 21 H Creatinine 1.6 H Glucose 128 H POC Glucose Hemoglobin A1c Lactic Acid Calcium 7.7 L Phosphorus AST Alkaline Phosphatase NT-Pro-B Natriuret Pep Total Protein Albumin Crossmatch 10/19/18 10/19/18 10/19/18 09:41 11:46 16:12 WBC RBC Hgb Hct MCH RDW Lymph % (Auto) [place] % (Auto) Lymph # [place] # Baso # Seg Neutrophils % Seg Neuts % (Manual) Lymphocytes % (Manual) Seg Neutrophils # Seg Neutrophils # Man Lymphocytes # (Manual) PT 17.7 H INR 1.36 H APTT Heparin Anti-Xa Level POC ABG pH POC ABG pCO2 POC ABG pO2 Sodium Potassium Chloride Carbon Dioxide BUN Creatinine Glucose POC Glucose 212 H 260 H Hemoglobin A1c Lactic Acid Calcium Phosphorus AST Alkaline Phosphatase NT-Pro-B Natriuret Pep Total Protein Albumin Crossmatch 10/19/18 10/19/18 10/19/18 19:56 22:09 Unknown WBC RBC Hgb Hct MCH RDW Lymph % (Auto) [place] % (Auto) Lymph # [place] # Baso # Seg Neutrophils % Seg Neuts % (Manual) Lymphocytes % (Manual) Seg Neutrophils # Seg Neutrophils # Man Lymphocytes # (Manual) PT INR APTT Heparin Anti-Xa Level 0.19 L POC ABG pH 7.458 H POC ABG pCO2 POC ABG pO2 63 L Sodium Potassium Chloride Carbon Dioxide BUN Creatinine Glucose POC Glucose 216 H Hemoglobin A1c Lactic Acid Calcium Phosphorus AST Alkaline Phosphatase NT-Pro-B Natriuret Pep Total Protein Albumin Crossmatch 10/20/18 10/20/18 10/20/18 03:00 03:00 03:00 WBC 14.8 H RBC 2.81 L Hgb 7.5 L Hct 23.1 L MCH 27 L RDW 20.0 H Lymph % (Auto) 11.5 L [place] % (Auto) Lymph # [place] # 0.9 H Baso # Seg Neutrophils % 79.7 H Seg Neuts % (Manual) Lymphocytes % (Manual) Seg Neutrophils # 11.8 H Seg Neutrophils # Man Lymphocytes # (Manual) PT 16.9 H INR 1.29 H APTT Heparin Anti-Xa Level 0.24 L POC ABG pH POC ABG pCO2 POC ABG pO2 Sodium Potassium Chloride 97.8 L Carbon Dioxide BUN 20 H Creatinine 1.5 H Glucose 206 H POC Glucose Hemoglobin A1c Lactic Acid Calcium 7.8 L Phosphorus AST Alkaline Phosphatase NT-Pro-B Natriuret Pep Total Protein Albumin Crossmatch 10/20/18 10/20/18 10/20/18 06:59 10:20 10:59 WBC RBC Hgb Hct MCH RDW Lymph % (Auto) [place] % (Auto) Lymph # [place] # Baso # Seg Neutrophils % Seg Neuts % (Manual) Lymphocytes % (Manual) Seg Neutrophils # Seg Neutrophils # Man Lymphocytes # (Manual) PT 15.5 H INR 1.16 H APTT Heparin Anti-Xa Level < 0.10 L POC ABG pH POC ABG pCO2 POC ABG pO2 Sodium Potassium Chloride Carbon Dioxide BUN Creatinine Glucose POC Glucose 348 H 227 H Hemoglobin A1c Lactic Acid Calcium Phosphorus AST Alkaline Phosphatase NT-Pro-B Natriuret Pep Total Protein Albumin Crossmatch 10/20/18 10/20/18 10/21/18 16:15 17:14 00:53 WBC RBC Hgb Hct MCH RDW Lymph % (Auto) [place] % (Auto) Lymph # [place] # Baso # Seg Neutrophils % Seg Neuts % (Manual) Lymphocytes % (Manual) Seg Neutrophils # Seg Neutrophils # Man Lymphocytes # (Manual) PT INR APTT Heparin Anti-Xa Level 0.24 L POC ABG pH POC ABG pCO2 POC ABG pO2 Sodium Potassium Chloride Carbon Dioxide BUN Creatinine Glucose POC Glucose 279 H 136 H Hemoglobin A1c Lactic Acid Calcium Phosphorus AST Alkaline Phosphatase NT-Pro-B Natriuret Pep Total Protein Albumin Crossmatch 10/21/18 10/21/18 10/21/18 05:45 05:45 05:45 WBC 15.8 H RBC 2.79 L Hgb 7.5 L Hct 22.9 L MCH 27 L RDW 19.8 H Lymph % (Auto) 7.2 L [place] % (Auto) Lymph # 1.1 L [place] # Baso # Seg Neutrophils % 85.7 H Seg Neuts % (Manual) Lymphocytes % (Manual) Seg Neutrophils # 13.5 H Seg Neutrophils # Man Lymphocytes # (Manual) PT 16.9 H INR 1.29 H APTT Heparin Anti-Xa Level POC ABG pH POC ABG pCO2 POC ABG pO2 Sodium Potassium Chloride Carbon Dioxide BUN 18 H Creatinine 1.4 H Glucose 339 H POC Glucose Hemoglobin A1c Lactic Acid Calcium 8.3 L Phosphorus AST Alkaline Phosphatase NT-Pro-B Natriuret Pep Total Protein Albumin Crossmatch 10/21/18 10/21/18 10/21/18 08:00 10:13 11:18 WBC RBC Hgb Hct MCH RDW Lymph % (Auto) [place] % (Auto) Lymph # [place] # Baso # Seg Neutrophils % Seg Neuts % (Manual) Lymphocytes % (Manual) Seg Neutrophils # Seg Neutrophils # Man Lymphocytes # (Manual) PT INR APTT Heparin Anti-Xa Level POC ABG pH POC ABG pCO2 POC ABG pO2 Sodium Potassium Chloride Carbon Dioxide BUN Creatinine Glucose POC Glucose 398 H 295 H 235 H Hemoglobin A1c Lactic Acid Calcium Phosphorus AST Alkaline Phosphatase NT-Pro-B Natriuret Pep Total Protein Albumin Crossmatch Allied health notes reviewed: nursing
[2018-10-21] MEDS ORDERED: COUMADIN PO SCH (17:00)
[2018-10-21] MEDS ORDERED: HEPARIN 10,000 UNITS/10 ML IV ONE (17:47)
[2018-10-21 18:26] LABS: INR 1.32 (0.87-1.13)
[2018-10-21] MEDS: COUMADIN PO SCH (18:55)
[2018-10-21] MEDS: HEPARIN/ 0.45% NACL-25,000 UNIT/500 ML 25,000 UNIT/500 ML BAG IV SCH (18:59)
[2018-10-22] MEDS: HumaLOG SUB-Q SCH ×9 (01:11→17:05)
[2018-10-22 01:31] LABS: Hemoglobin 6.7 gm/dl (10.1-14.3)
[2018-10-22 01:38] LABS: Hematocrit 19.8 % (30.3-42.9)
[2018-10-22] MEDS ORDERED: NACL 0.9% 500 ML 500 ML IV ONE ×2 (02:01→12:00)
[2018-10-22] MEDS ORDERED: LASIX IV ONE ×2 (02:02→12:00)
[2018-10-22 06:10] LABS: INR 1.62 (0.87-1.13)
[2018-10-22 06:13] LABS: Calcium 8.1 mg/dL (8.4-10.2)
[2018-10-22 06:18] LABS: Basophils # (Auto) 0.1 K/mm3 (0.0-0.1); Basophils % (Auto) 0.7 % (0.0-1.8); Eosinophils # (Auto) 0.1 K/mm3 (0.0-0.4); Eosinophils % (Auto) 0.7 % (0.0-4.3); Hematocrit 22.3 % (30.3-42.9); Hemoglobin 7.3 gm/dl (10.1-14.3); Lymphocytes # (Auto) 1.1 K/mm3 (1.2-5.4); Lymphocytes % (Auto) 6.9 % (13.4-35.0); Mean Corpuscular HGB Conc 33 % (30-34); Mean Corpuscular Volume 83 fl (79-97); Monocytes % (Auto) 6.4 % (0.0-7.3); Platelet Count 431 K/mm3 (140-440); Red Blood Count 2.69 M/mm3 (3.65-5.03)
[2018-10-22 06:21] LABS: Red Cell Distribution Width 20.4 % (13.2-15.2)
[2018-10-22] MEDS: HEPARIN/ 0.45% NACL-25,000 UNIT/500 ML 25,000 UNIT/500 ML BAG IV SCH ×2 (06:33→22:23)
[2018-10-22] MEDS: PREVACID SOLUTAB FEEDTUBE SCH ×2 (09:33→21:47)
[2018-10-22] MEDS: LOPRESSOR PO SCH ×3 (09:33→21:47)
[2018-10-22] MEDS: LANTUS SUB-Q SCH (09:33)
[2018-10-22] MEDS: SODIUM CHLORIDE FLUSH SYRINGE 10 ML IV SCH ×2 (09:34→21:47)
[2018-10-22] MEDS: LASIX PO SCH (09:36)
--- NOTE | 2018-10-22 11:00 | Gastroenterology Progress Note ---
Assessment and Plan GI: stable anemia w/o further signs bleeding - EGD/colon benign - pill kayla outpt - will sign off, call if needed Subjective Date of service: 10/22/18 Principal diagnosis: Ac hypoxemic resp failure; Seizures (?hypoglycemic); Ac encephalopathy(T/M) Interval history: -no signs bleeding or other GI issues overnight Objective - Constitutional Vitals: Temp Pulse Resp BP Pulse Ox 97.2 F L 83 18 120/70 100 10/22/18 04:56 10/22/18 04:56 10/22/18 04:56 10/22/18 04:56 10/22/18 04:56 General appearance: no acute distress - EENT Eyes: PERRL - Respiratory Respiratory: bilateral: CTA - Cardiovascular Rhythm: regular Heart Sounds: Present: S1 & S2 - Gastrointestinal General gastrointestinal: Present: soft, non-tender, non-distended - Labs CBC & Chem 7: 10/22/18 04:39 10/22/18 04:39 Labs: Laboratory Results - last 24 hr 10/15/18 10/21/18 10/21/18 10:27 11:18 17:20 WBC RBC Hgb Hct MCV MCH MCHC RDW Plt Count Lymph % (Auto) [place] % (Auto) Eos % (Auto) Baso % (Auto) Lymph # [place] # Eos # Baso # Seg Neutrophils % Seg Neutrophils # PT INR APTT Heparin Anti-Xa Level Sodium Potassium Chloride Carbon Dioxide Anion Gap BUN Creatinine Estimated GFR BUN/Creatinine Ratio Glucose POC Glucose 235 H 271 H Calcium Blood Type Antibody Screen Crossmatch See Detail 10/21/18 10/21/18 10/22/18 17:52 23:41 00:47 WBC RBC Hgb 6.7 L Hct 19.8 L* MCV MCH MCHC RDW Plt Count 392 Lymph % (Auto) [place] % (Auto) Eos % (Auto) Baso % (Auto) Lymph # [place] # Eos # Baso # Seg Neutrophils % Seg Neutrophils # PT 17.2 H INR 1.32 H APTT 40.0 H Heparin Anti-Xa Level Sodium Potassium Chloride Carbon Dioxide Anion Gap BUN Creatinine Estimated GFR BUN/Creatinine Ratio Glucose POC Glucose 157 H Calcium Blood Type Antibody Screen Crossmatch 10/22/18 10/22/18 10/22/18 00:47 00:47 04:39 WBC 16.1 H RBC 2.69 L Hgb 7.3 L Hct 22.3 L MCV 83 MCH 27 L MCHC 33 RDW 20.4 H Plt Count 431 Lymph % (Auto) 6.9 L [place] % (Auto) 6.4 Eos % (Auto) 0.7 Baso % (Auto) 0.7 Lymph # 1.1 L [place] # 1.0 H Eos # 0.1 Baso # 0.1 Seg Neutrophils % 85.3 H Seg Neutrophils # 13.8 H PT INR APTT TNR Heparin Anti-Xa Level TNR Sodium Potassium Chloride Carbon Dioxide Anion Gap BUN Creatinine Estimated GFR BUN/Creatinine Ratio Glucose POC Glucose Calcium Blood Type Antibody Screen Crossmatch 10/22/18 10/22/18 10/22/18 04:39 04:39 04:39 WBC RBC Hgb Hct MCV MCH MCHC RDW Plt Count Lymph % (Auto) [place] % (Auto) Eos % (Auto) Baso % (Auto) Lymph # [place] # Eos # Baso # Seg Neutrophils % Seg Neutrophils # PT 20.3 H INR 1.62 H APTT Heparin Anti-Xa Level 0.12 L Sodium 140 Potassium 4.2 Chloride 104.3 Carbon Dioxide 24 Anion Gap 16 BUN 20 H Creatinine 1.7 H Estimated GFR 39 BUN/Creatinine Ratio 12 Glucose 255 H POC Glucose Calcium 8.1 L Blood Type O POSITIVE Antibody Screen Negative Crossmatch See Detail 10/22/18 05:09 WBC RBC Hgb Hct MCV MCH MCHC RDW Plt Count Lymph % (Auto) [place] % (Auto) Eos % (Auto) Baso % (Auto) Lymph # [place] # Eos # Baso # Seg Neutrophils % Seg Neutrophils # PT INR APTT Heparin Anti-Xa Level Sodium Potassium Chloride Carbon Dioxide Anion Gap BUN Creatinine Estimated GFR BUN/Creatinine Ratio Glucose POC Glucose 297 H Calcium Blood Type Antibody Screen Crossmatch
[2018-10-22] MEDS ORDERED: HEPARIN 10,000 UNITS/10 ML IV ONE (11:16)
--- NOTE | 2018-10-22 11:23 | Progress Note ---
Assessment and Plan Benign findings on endoscopy/colonoscopy.Considering prosthetic MV,will restart iv heparin.Continue Warfarin with INR of 2.5 to 3.5.Labs reviewed,orders noted. - Patient Problems (1) Acute anemia Current Visit: Yes Status: Acute (2) CAD (coronary artery disease) Current Visit: Yes Status: Chronic (3) Diabetes Current Visit: Yes Status: Chronic (4) H/O mitral valve replacement with mechanical valve Current Visit: Yes Status: Chronic (5) History of GI bleed Current Visit: Yes Status: Chronic (6) Seizures Current Visit: Yes Status: Suspected Subjective Date of service: 10/22/18 Principal diagnosis: Ac hypoxemic resp failure; Seizures (?hypoglycemic); Ac encephalopathy(T/M) Interval history: Patient comfortable,no particular complaints. Objective Vital Signs Temp Pulse Resp BP Pulse Ox 10/22/18 04:56 97.2 F L 83 18 120/70 100 10/21/18 22:29 98.5 F 107 H 16 104/63 90 10/21/18 20:53 111 H 133/76 10/21/18 20:49 18 133/76 10/21/18 17:03 97.8 F 12 148/86 10/21/18 14:32 90 13 132/79 100 10/21/18 14:21 89 19 138/79 100 10/21/18 14:04 98.9 F 89 25 H 126/82 100 10/21/18 12:05 98.8 F 84 12 114/68 100 - Physical Examination General: No Apparent Distress HEENT: Positive: PERRL Neck: Positive: neck supple (valve clicks intact.) Cardiac: Positive: Reg Rate and Rhythm Lungs: Positive: Normal Breath Sounds Neuro: Positive: Grossly Intact Abdomen: Negative: Tender Skin: Negative: Rash Extremities: Absent: edema - Labs and Meds Coagulation 10/21/18 10/22/18 10/22/18 Range/Units 17:52 00:47 04:39 PT 17.2 H 20.3 H (12.2-14.9) Sec. INR 1.32 H 1.62 H (0.87-1.13) APTT 40.0 H TNR (24.2-36.6) Sec. CBC 10/22/18 10/22/18 Range/Units 00:47 04:39 WBC 16.1 H (4.5-11.0) K/mm3 RBC 2.69 L (3.65-5.03) M/mm3 Hgb 6.7 L 7.3 L (10.1-14.3) gm/dl Hct 19.8 L* 22.3 L (30.3-42.9) % Plt Count 392 431 (140-440) K/mm3 Lymph # 1.1 L (1.2-5.4) K/mm3 [place] # 1.0 H (0.0-0.8) K/mm3 Eos # 0.1 (0.0-0.4) K/mm3 Baso # 0.1 (0.0-0.1) K/mm3 Comprehensive Metabolic Panel 10/22/18 Range/Units 04:39 Sodium 140 (137-145) mmol/L Potassium 4.2 (3.6-5.0) mmol/L Chloride 104.3 (98-107) mmol/L Carbon Dioxide 24 (22-30) mmol/L BUN 20 H (7-17) mg/dL Creatinine 1.7 H (0.7-1.2) mg/dL Glucose 255 H (65-100) mg/dL Calcium 8.1 L (8.4-10.2) mg/dL - Imaging and Cardiology EKG: report reviewed, image reviewed Echo: report reviewed (07/2018: EF 40%, mild to mod LVH, LA and RA dilated, mod TR and TN, mechanical valve in mitral position that appears to be functioning properly. 10/2018: EF 35-40%, mod LVH, abnormal diastolic function, LA severely dilated, mechanical MV appears well seated with normal function, mod pulm HTN. 11/2016 showed EF 40-45%, abnormal diastolic function, trace MR, mild TR, RVSP 36mmHg. ) - EKG Sinus rhythms and dysrhythmias: sinus rhythm Chamber hypertrophy or enlargement: left ventricular hypertro - Allied health notes Allied health notes reviewed: nursing
[2018-10-22 12:06] LABS: Bilirubin,Urine NEG (Negative); Blood,Urine LG (Negative); Color,Urine Amber (Yellow); Urobilinogen,Urine < 2.0 mg/dL (<2.0)
[2018-10-22 12:12] LABS: Protein,Urine >500 mg/dL (Negative)
[2018-10-22 12:33] LABS: Hematocrit 21.9 % (30.3-42.9); Hemoglobin 7.4 gm/dl (10.1-14.3)
--- NOTE | 2018-10-22 12:43 | Progress Note ---
Assessment and Plan Assessment and plan: 48 year old woman with history of coronary artery disease, status post cabbage, diabetes, hypertension who was brought to the emergency room for altered mental status. She was found to have hypoglycemia, she was also having convulsions at the time of admission. The patient was intubated, sp dextrose she was put on the ventilator she was found to have pneumonia and CHF flare and started on antibiotics. patient has history of MV replacement and was on anticoagulation. Pneumonia, severe sepsis - Patient was on IV antibiotics and completed on 10/13 per ID Acute hypoxic respiratory failure on MV >96 hrs Was intubated and on mechanical ventilation - patient was extubated on 10/13 -Weaned to room air on 10/19, status epilepticus; Seizures when most likely due to hypoglycemia -Treated with dextrose -, neurology consult appreciated Acute on chronic systolic CHF EF 40%, dilated ventricles -cardiology consult appreciated, sp lasix, now on PO lasix [facility]/hypercoaguable state/coagulopathy due to warfarin INR subtherapeutic, on heparin ggt -very sensitive to warfain and gets supratherapeutic very quickly after a few doses, hematology consulted, cont lower dose warfarin Severe anemia sp-transfusion, Gi workup showed neg egd and c scope, outpatient pill camera recommended 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, treated as type 1, uncontrolled, a1c 10.2 Continue insulins judiciously, brittle DM with episodes of hypoglycemia and hyperglycemia, labile glc Mazin upon ckd stage 3, vasomotor nephropathy and likely ATN from sepsis Nephrology input appreciated, avoid nephrotoxins, neph signed off on 10/15 acute metabolic encephalopathy improving, appears to have some baseline confusion hypernatremia resolved after she received hypotonic ivf Hyperkalemia resolved with insulin and diuretics htn urgency; optimized bp meds Marijuana abuse; was counseled, preventive health counseling, done 17 mins spent dvt ppx- chemical, dispo; to [facility] when INR> 2.5 History Interval history: Review of systems Constitutional: No fevers, no malaise, no joint pains CVS: No chest pain, no pedal edema, sob is resolved GI:no hematemesis, blood in stool or melena, No abdominal pain, no diarrhea, no vomiting, no constipation Respiratory: No cough or wheezing Hospitalist Physical - Physical exam Narrative exam: General.: appears well HEENT: Moist mucous membranes, extraocular muscles intact, no lymphadenopathy Neck: supple Cardiac: S1-S2 heard Lungs: Clear to auscultation Abdomen: soft , nontender, nondistended, bowel sounds positive Extremities: no edema clubbing or cyanosis Skin: no rash or lesions Neurologic: no focal deficit Psych: calm and cooperative - Constitutional Vitals: Temp Pulse Resp BP Pulse Ox 97.2 F L 83 18 120/70 100 10/22/18 04:56 10/22/18 04:56 10/22/18 04:56 10/22/18 04:56 10/22/18 04:56 General appearance: Present: other (intubated, eyes open, no purposeful response to commands) Results - Labs CBC & Chem 7: 10/23/18 07:21 10/23/18 07:21 Labs: Laboratory Last Values WBC 16.1 K/mm3 (4.5-11.0) H 10/22/18 04:39 RBC 2.69 M/mm3 (3.65-5.03) L 10/22/18 04:39 Hgb 7.4 gm/dl (10.1-14.3) L 10/22/18 11:20 Hct 21.9 % (30.3-42.9) L 10/22/18 11:20 MCV 83 fl (79-97) 10/22/18 04:39 MCH 27 pg (28-32) L 10/22/18 04:39 MCHC 33 % (30-34) 10/22/18 04:39 RDW 20.4 % (13.2-15.2) H 10/22/18 04:39 Plt Count 457 K/mm3 (140-440) H 10/22/18 11:20 Lymph % (Auto) 6.9 % (13.4-35.0) L 10/22/18 04:39 [place] % (Auto) 6.4 % (0.0-7.3) 10/22/18 04:39 Eos % (Auto) 0.7 % (0.0-4.3) 10/22/18 04:39 Baso % (Auto) 0.7 % (0.0-1.8) 10/22/18 04:39 Lymph # 1.1 K/mm3 (1.2-5.4) L 10/22/18 04:39 [place] # 1.0 K/mm3 (0.0-0.8) H 10/22/18 04:39 Eos # 0.1 K/mm3 (0.0-0.4) 10/22/18 04:39 Baso # 0.1 K/mm3 (0.0-0.1) 10/22/18 04:39 Add Manual Diff Complete 10/17/18 05:00 Total Counted 100 10/17/18 05:00 Seg Neutrophils % 85.3 % (40.0-70.0) H 10/22/18 04:39 Seg Neuts % (Manual) 87.0 % (40.0-70.0) H 10/17/18 05:00 0 % 10/17/18 05:00 9.0 % (13.4-35.0) L 10/17/18 05:00 Reactive Lymphs % (Man) 0 % 10/17/18 05:00 2.0 % (0.0-7.3) 10/17/18 05:00 2.0 % (0.0-4.3) 10/17/18 05:00 0 % (0.0-1.8) 10/17/18 05:00 0 % 10/17/18 05:00 0 % 10/17/18 05:00 0 % 10/17/18 05:00 0 % 10/17/18 05:00 Nucleated RBC % Not Reportable 10/17/18 05:00 Seg Neutrophils # 13.8 K/mm3 (1.8-7.7) H 10/22/18 04:39 Seg Neutrophils # Man 10.1 K/mm3 (1.8-7.7) H 10/17/18 05:00 Band Neutrophils # 0.0 K/mm3 10/17/18 05:00 1.0 K/mm3 (1.2-5.4) L 10/17/18 05:00 Abs React Lymphs (Man) 0.0 K/mm3 10/17/18 05:00 0.2 K/mm3 (0.0-0.8) 10/17/18 05:00 0.2 K/mm3 (0.0-0.4) 10/17/18 05:00 0.0 K/mm3 (0.0-0.1) 10/17/18 05:00 0.0 K/mm3 10/17/18 05:00 0.0 K/mm3 10/17/18 05:00 0.0 K/mm3 10/17/18 05:00 Blast Cells # 0.0 K/mm3 10/17/18 05:00 WBC Morphology Not Reportable 10/17/18 05:00 Hypersegmented Neuts Not Reportable 10/17/18 05:00 Hyposegmented Neuts Not Reportable 10/17/18 05:00 Hypogranular Neuts Not Reportable 10/17/18 05:00 Not Reportable 10/17/18 05:00 Not Reportable 10/17/18 05:00 Not Reportable 10/17/18 05:00 Not Reportable 10/17/18 05:00 Not Reportable 10/17/18 05:00 Not Reportable 10/17/18 05:00 Consistent w auto 10/17/18 05:00 Not Reportable 10/17/18 05:00 Plt Clumps, EDTA Not Reportable 10/17/18 05:00 Not Reportable 10/17/18 05:00 Not Reportable 10/17/18 05:00 Not Reportable 10/17/18 05:00 Plt Morphology Comment Not Reportable 10/17/18 05:00 RBC Morphology Not Reportable 10/17/18 05:00 Dimorphic RBCs Not Reportable 10/17/18 05:00 Not Reportable 10/17/18 05:00 1+ 10/17/18 05:00 Few 10/17/18 05:00 1+ 10/17/18 05:00 Not Reportable 10/17/18 05:00 Rare 10/17/18 05:00 Not Reportable 10/17/18 05:00 Not Reportable 10/17/18 05:00 Not Reportable 10/17/18 05:00 Not Reportable 10/17/18 05:00 Not Reportable 10/17/18 05:00 Not Reportable 10/17/18 05:00 Not Reportable 10/17/18 05:00 Not Reportable 10/17/18 05:00 Not Reportable 10/17/18 05:00 Not Reportable 10/17/18 05:00 Not Reportable 10/17/18 05:00 Not Reportable 10/17/18 05:00 Not Reportable 10/17/18 05:00 Acanthocytes (Spur) Not Reportable 10/17/18 05:00 Rouleaux Not Reportable 10/17/18 05:00 Not Reportable 10/17/18 05:00 Not Reportable 10/17/18 05:00 Not Reportable 10/17/18 05:00 Not Reportable 10/17/18 05:00 Hem Pathologist Commnt No 10/17/18 05:00 PT 20.3 Sec. (12.2-14.9) H 10/22/18 04:39 INR 1.62 (0.87-1.13) H 10/22/18 04:39 APTT TNR 10/22/18 00:47 Heparin Anti-Xa Level 0.12 U.I./ml (0.3-0.7) L 10/22/18 04:39 POC ABG pH 7.458 (7.35-7.45) H 10/19/18 19:56 POC ABG pCO2 37.9 (35-45) 10/19/18 19:56 POC ABG pO2 63 (80-105) L 10/19/18 19:56 POC ABG HCO3 26.8 (22-26 mml/L) 10/19/18 19:56 POC ABG Total CO2 28 (23-27mmol/L) 10/19/18 19:56 POC ABG O2 Sat 93 10/19/18 19:56 POC ABG Base Excess 3 ((-2) - (+3)mmol/L) 10/19/18 19:56 2 % 10/19/18 19:56 Sodium 140 mmol/L (137-145) 10/22/18 04:39 Potassium 4.2 mmol/L (3.6-5.0) 10/22/18 04:39 Chloride 104.3 mmol/L (98-107) 10/22/18 04:39 Carbon Dioxide 24 mmol/L (22-30) 10/22/18 04:39 16 mmol/L 10/22/18 04:39 BUN 20 mg/dL (7-17) H 10/22/18 04:39 1.7 mg/dL (0.7-1.2) H 10/22/18 04:39 Estimated GFR 39 ml/min 10/22/18 04:39 12 % 10/22/18 04:39 Glucose 255 mg/dL (65-100) H 10/22/18 04:39 POC Glucose 125 (70-105) H 10/22/18 12:09 10.2 % (4-6) H 10/07/18 22:08 Lactic Acid 1.50 mmol/L (0.7-2.0) 10/08/18 17:09 Calcium 8.1 mg/dL (8.4-10.2) L 10/22/18 04:39 Phosphorus 7.40 mg/dL (2.5-4.5) H 10/07/18 22:08 Magnesium 1.70 mg/dL (1.7-2.3) 10/18/18 20:20 0.60 mg/dL (0.1-1.2) 10/17/18 05:00 < 0.2 mg/dL (0-0.2) 10/17/18 05:00 0.4 mg/dL 10/17/18 05:00 AST 14 units/L (5-40) 10/17/18 05:00 ALT 8 units/L (7-56) 10/17/18 05:00 104 units/L (35-129) 10/17/18 05:00 40.0 umol/L (25-60) 10/07/18 02:43 < 0.010 ng/mL (0.00-0.029) 10/07/18 08:59 0.20 mg/dL (0.00-1.30) 10/07/18 14:55 NT-Pro-B Natriuret Pep 2865 pg/mL (0-450) H 10/09/18 03:20 5.4 g/dL (6.3-8.2) L 10/17/18 05:00 2.2 g/dL (3.9-5) L 10/17/18 05:00 0.7 % 10/17/18 05:00 Fay (Yellow) 10/21/18 11:00 Cloudy (Clear) 10/21/18 11:00 5.0 (5.0-7.0) 10/21/18 11:00 Ur Specific [place] 1.022 (1.003-1.030) 10/21/18 11:00 >500 mg/dL (Negative) 10/21/18 11:00 50 mg/dL (Negative) 10/21/18 11:00 Neg mg/dL (Negative) 10/21/18 11:00 Lg (Negative) 10/21/18 11:00 Neg (Negative) 10/21/18 11:00 Neg (Negative) 10/21/18 11:00 < 2.0 mg/dL (<2.0) 10/21/18 11:00 Ur Leukocyte Esterase Mod (Negative) 10/21/18 11:00 125.0 /HPF (0.0-6.0) H 10/21/18 11:00 131.0 /HPF (0.0-6.0) 10/21/18 11:00 U Epithel Cells (Auto) 2.0 /HPF (0-13.0) 10/21/18 11:00 2+ /HPF 10/21/18 11:00 Hyaline Casts 3 /LPF 10/07/18 02:34 Few /HPF 10/07/18 02:34 3+ /HPF 10/21/18 11:00 Presumptive negative 10/07/18 02:34 Presumptive negative 10/07/18 02:34 Ur Barbiturates Screen Presumptive negative 10/07/18 02:34 Ur Phencyclidine Scrn Presumptive negative 10/07/18 02:34 Ur Amphetamines Screen Presumptive negative 10/07/18 02:34 U Benzodiazepines Scrn Presumptive negative 10/07/18 02:34 Presumptive negative 10/07/18 02:34 U Marijuana (THC) Screen Presumptive positive 10/07/18 02:34 Disclamer 10/07/18 02:34 Blood Type O POSITIVE 10/22/18 04:39 Antibody Screen Negative 10/22/18 04:39 Crossmatch See Detail 10/22/18 04:39 Active Medications - Current Medications Current Medications: Generic Name Dose Route Start Last Admin Trade Name Freq PRN Reason Stop Dose Admin Acetaminophen 650 mg 10/07/18 04:59 10/20/18 12:56 Tylenol PO 650 mg Q4H PRN Administration Pain MILD(1-3)/Fever >100.5/RODRIGUEZ Lipase/Protease/Amylase 1 each 10/08/18 10:[address] 10,500 Unit FEEDTUBE PRN PRN For Clogged Feeding Tube Dextrose 50 ml 10/07/18 20:42 10/10/18 05:46 D50w (25gm) Syringe IV 50 ml PRN PRN Administration Hypoglycemia Furosemide 40 mg 10/19/18 11:00 10/22/18 09:36 Lasix PO 40 mg QDAY ULI Administration Hydralazine HCl 10 mg 10/07/18 05:07 10/14/18 08:35 Apresoline IV 10 mg Q4H PRN Administration Blood Pressure Hydrophilic Ointment 1 applic 10/07/18 02:40 Vaseline Lip Therapy TP Q2HR PRN Dry Lips Heparin Sodium/Sodium Chloride 25,000 unit in 500 mls @ 15 mls/hr 10/21/18 18:00 10/22/18 06:33 Heparin/ 0.45% Nacl-25,000 Unit/500 Ml IV 850 units/hr TITRATE ULI 17 mls/hr Administration Protocol 750 UNITS/HR Insulin Glargine 5 units 10/12/18 12:00 10/22/18 09:33 Lantus SUB-Q 5 units DAILY ULI Administration Insulin Human Lispro 0 unit 10/09/18 00:00 10/22/18 07:54 Humalog SUB-Q 3 unit Q6HR ULI Administration Protocol Insulin Human Lispro 6 unit 10/19/18 16:49 10/22/18 09:33 Humalog SUB-Q 6 unit AC ULI Administration Lansoprazole 30 mg 10/16/18 22:00 10/22/18 09:33 Prevacid Solutab FEEDTUBE 30 mg BID ULI Administration Metoclopramide HCl 10 mg 10/11/18 13:00 10/12/18 19:32 Reglan IV 10 mg Q6HR PRN Administration Nausea And Vomiting Metoprolol Tartrate 50 mg 10/14/18 08:40 10/22/18 09:33 Lopressor PO 50 mg TID ULI Administration Multi-Ingred Cream/Lotion/Oil/Oint 1 applic 10/07/18 02:40 Artificial Tears Ophth Oint OU Q4HR PRN Dry Eye(s) Ondansetron HCl 4 mg 10/07/18 04:59 Zofran IV Q8H PRN N/V unrelieved by Regirene Quetiapine Fumarate 100 mg 10/09/18 22:00 10/21/18 22:16 Seroquel PO 100 mg QHS ULI Administration Simple Syrup 15 ml 10/08/18 10:00 Simple Syrup FEEDTUBE PRN PRN Hypoglycemia Simple Syrup 30 ml 10/08/18 10:00 10/09/18 01:09 Simple Syrup FEEDTUBE 30 ml PRN PRN Administration Hypoglycemia Sodium Bicarbonate 325 mg 10/08/18 10:00 Sodium Bicarbonate FEEDTUBE PRN PRN For Clogged Feeding Tube Sodium Chloride 10 ml 10/07/18 10:00 10/22/18 09:34 Sodium Chloride Flush Syringe 10 Ml IV 10 ml BID ULI Administration Sodium Chloride 10 ml 10/07/18 04:59 10/18/18 07:15 Sodium Chloride Flush Syringe 10 Ml IV 10 ml PRN PRN Administration LINE FLUSH Warfarin Sodium 2 mg 10/21/18 18:00 10/21/18 18:55 Coumadin PO 2 mg DAILY@1700 UIL Administration Protocol Nutrition/Malnutrition Assess - Dietary Evaluation Nutrition/Malnutrition Findings: Nutrition Notes Start: 10/07/18 12:17 Freq: Status: Active Protocol: Document 10/21/18 10:51 CP (Rec: 10/21/18 10:59 CP [id number]) Co-Sign 10/21/18 10:51 LP Nutrition Notes Initial or Follow up Reassessment Current Diagnosis CKD (stage V CKD),Diabetes, Hypertension,Heart Failure Current Diet NPO after midnight Labs/Tests Glu: 339 Pertinent Medications Warfarin Lasix Humalog Height 5 ft 2 in Weight 52.5 kg [place] Body Weight (kg) 50.00 BMI 21.2 Subjective/Other Information Pt screened for DNI. F/U for PO tolerance and diet advancement. Pt is currently NPO after midnight. Provided consistent vitamin K education during time of visit. Percent of energy/protein needs met: 0%/0% Burn Absent Trauma Absent #1 Nutrition Diagnosis Inadequate oral intake Diagnosis Progress(for reassessment Continues documentation) Is patient on ventilator? No Is Patient Ambulatory and/or Out of Bed No REE-([facility]-confined to bed) 1327.208 Calculation Used for Recommendations [facility] Additional Notes Pro needs 0.8-1g/k-55g/ day Fluid needs 1ml/kcal Nutrition Intervention Change Diet Order: Continue current or per MD request Goal #1 Diet advancement Follow-Up By: 10/25/18 Additional Comments F/U: diet advancement
[2018-10-22 12:46] LABS: INR 1.67 (0.87-1.13)
--- NOTE | 2018-10-22 13:10 | Progress Note ---
Subjective Date of service: 10/22/18 Principal diagnosis: Ac hypoxemic resp failure; Seizures (?hypoglycemic); Ac encephalopathy(T/M) Interval history: patient seen on follow up and more alert and talkative morales coming back to slight degree VS reviewed at BS and all are stable no seizures observed Objective - Vital Sign Vital Signs - 12hr 10/22/18 10/22/18 10/22/18 04:56 12:06 12:09 Temperature 97.2 F L 98.9 F Pulse Rate 83 89 Respiratory 18 18 Rate Blood Pressure 120/70 95/54 O2 Sat by Pulse 100 100 Oximetry - Laboratory Findings CBC and BMP: 10/22/18 11:20 10/22/18 04:39 Abnormal Lab Findings: Abnormal Labs 10/07/18 10/07/18 10/07/18 02:20 02:43 02:43 WBC RBC Hgb Hct MCH 25 L RDW 21.5 H Plt Count Lymph % (Auto) [facility] % (Auto) Lymph # 0.[address] [facility] # Baso # Seg Neutrophils % 78.4 H Seg Neuts % (Manual) Lymphocytes % (Manual) Seg Neutrophils # Seg Neutrophils # Man Lymphocytes # (Manual) PT INR APTT Heparin Anti-Xa Level POC ABG pH POC ABG pCO2 POC ABG pO2 Sodium Potassium Chloride 108.0 H Carbon Dioxide 21 L BUN Creatinine 1.5 H Glucose 115 H POC Glucose 136 H Hemoglobin A1c Lactic Acid Calcium Phosphorus AST 51 H Alkaline Phosphatase 257 H NT-Pro-B Natriuret Pep Total Protein Albumin Urine WBC (Auto) Crossmatch 10/07/18 10/07/18 10/07/18 02:43 04:32 05:12 WBC RBC Hgb Hct MCH RDW Plt Count Lymph % (Auto) [facility] % (Auto) Lymph # [facility] # Baso # Seg Neutrophils % Seg Neuts % (Manual) Lymphocytes % (Manual) Seg Neutrophils # Seg Neutrophils # Man Lymphocytes # (Manual) PT 25.4 H INR 2.14 H APTT Heparin Anti-Xa Level POC ABG pH POC ABG pCO2 33.6 L POC ABG pO2 69 L Sodium Potassium Chloride Carbon Dioxide BUN Creatinine Glucose POC Glucose Hemoglobin A1c Lactic Acid 2.40 H* Calcium Phosphorus AST Alkaline Phosphatase NT-Pro-B Natriuret Pep Total Protein Albumin Urine WBC (Auto) Crossmatch 10/07/18 10/07/18 10/07/18 06:28 18:39 20:26 WBC RBC Hgb Hct MCH RDW Plt Count Lymph % (Auto) [facility] % (Auto) Lymph # [facility] # Baso # Seg Neutrophils % Seg Neuts % (Manual) Lymphocytes % (Manual) Seg Neutrophils # Seg Neutrophils # Man Lymphocytes # (Manual) PT INR APTT Heparin Anti-Xa Level POC ABG pH POC ABG pCO2 POC ABG pO2 Sodium Potassium Chloride Carbon Dioxide BUN Creatinine Glucose POC Glucose 164 H 440 H > 500 H Hemoglobin A1c Lactic Acid Calcium Phosphorus AST Alkaline Phosphatase NT-Pro-B Natriuret Pep Total Protein Albumin Urine WBC (Auto) Crossmatch 10/07/18 10/07/18 10/07/18 20:28 21:53 22:08 WBC RBC Hgb Hct MCH RDW Plt Count Lymph % (Auto) [facility] % (Auto) Lymph # [facility] # Baso # Seg Neutrophils % Seg Neuts % (Manual) Lymphocytes % (Manual) Seg Neutrophils # Seg Neutrophils # Man Lymphocytes # (Manual) PT INR APTT Heparin Anti-Xa Level POC ABG pH POC ABG pCO2 POC ABG pO2 Sodium 136 L D Potassium 6.4 H* D Chloride Carbon Dioxide 10 L D BUN 30 H Creatinine 2.0 H Glucose 544 H* POC Glucose 483 H > 500 H Hemoglobin A1c Lactic Acid Calcium 7.0 L D Phosphorus AST Alkaline Phosphatase NT-Pro-B Natriuret Pep Total Protein Albumin Urine WBC (Auto) Crossmatch 10/07/18 10/07/18 10/07/18 22:08 22:08 22:56 WBC RBC Hgb Hct MCH RDW Plt Count Lymph % (Auto) [facility] % (Auto) Lymph # [facility] # Baso # Seg Neutrophils % Seg Neuts % (Manual) Lymphocytes % (Manual) Seg Neutrophils # Seg Neutrophils # Man Lymphocytes # (Manual) PT INR APTT Heparin Anti-Xa Level POC ABG pH POC ABG pCO2 POC ABG pO2 Sodium Potassium Chloride Carbon Dioxide BUN Creatinine Glucose POC Glucose 462 H Hemoglobin A1c 10.2 H Lactic Acid Calcium Phosphorus 7.40 H AST Alkaline Phosphatase NT-Pro-B Natriuret Pep Total Protein Albumin Urine WBC (Auto) Crossmatch 10/07/18 10/08/18 10/08/18 23:39 00:58 02:09 WBC RBC Hgb Hct MCH RDW Plt Count Lymph % (Auto) [facility] % (Auto) Lymph # [facility] # Baso # Seg Neutrophils % Seg Neuts % (Manual) Lymphocytes % (Manual) Seg Neutrophils # Seg Neutrophils # Man Lymphocytes # (Manual) PT INR APTT Heparin Anti-Xa Level POC ABG pH POC ABG pCO2 POC ABG pO2 Sodium Potassium Chloride Carbon Dioxide BUN Creatinine Glucose POC Glucose 396 H 375 H 285 H Hemoglobin A1c Lactic Acid Calcium Phosphorus AST Alkaline Phosphatase NT-Pro-B Natriuret Pep Total Protein Albumin Urine WBC (Auto) Crossmatch 10/08/18 10/08/18 10/08/18 03:10 03:33 04:05 WBC RBC Hgb Hct MCH RDW Plt Count Lymph % (Auto) [facility] % (Auto) Lymph # [facility] # Baso # Seg Neutrophils % Seg Neuts % (Manual) Lymphocytes % (Manual) Seg Neutrophils # Seg Neutrophils # Man Lymphocytes # (Manual) PT INR APTT Heparin Anti-Xa Level POC ABG pH 7.243 L POC ABG pCO2 33.8 L POC ABG pO2 126 H Sodium Potassium 5.3 H Chloride 110.7 H Carbon Dioxide 14 L BUN 33 H Creatinine 2.2 H Glucose 193 H POC Glucose 251 H Hemoglobin A1c Lactic Acid Calcium 7.0 L Phosphorus AST Alkaline Phosphatase 155 H NT-Pro-B Natriuret Pep Total Protein 5.2 L D Albumin 2.6 L Urine WBC (Auto) Crossmatch 10/08/18 10/08/18 10/08/18 04:05 04:05 04:09 WBC 11.8 H RBC 3.32 L Hgb 8.3 L Hct 27.5 L D MCH 25 L RDW 22.0 H Plt Count Lymph % (Auto) 6.[address] [facility] % (Auto) 12.0 H Lymph # 0.[address] [facility] # 1.4 H Baso # Seg Neutrophils % 80.6 H Seg Neuts % (Manual) Lymphocytes % (Manual) Seg Neutrophils # 9.5 H Seg Neutrophils # Man Lymphocytes # (Manual) PT INR APTT Heparin Anti-Xa Level POC ABG pH POC ABG pCO2 POC ABG pO2 Sodium Potassium Chloride Carbon Dioxide BUN Creatinine Glucose POC Glucose 175 H Hemoglobin A1c Lactic Acid 3.70 H* Calcium Phosphorus AST Alkaline Phosphatase NT-Pro-B Natriuret Pep Total Protein Albumin Urine WBC (Auto) Crossmatch 10/08/18 10/08/18 10/08/18 05:07 06:05 07:14 WBC RBC Hgb Hct MCH RDW Plt Count Lymph % (Auto) [facility] % (Auto) Lymph # [facility] # Baso # Seg Neutrophils % Seg Neuts % (Manual) Lymphocytes % (Manual) Seg Neutrophils # Seg Neutrophils # Man Lymphocytes # (Manual) PT INR APTT Heparin Anti-Xa Level POC ABG pH POC ABG pCO2 POC ABG pO2 Sodium Potassium Chloride Carbon Dioxide BUN Creatinine Glucose POC Glucose 125 H 122 H 147 H Hemoglobin A1c Lactic Acid Calcium Phosphorus AST Alkaline Phosphatase NT-Pro-B Natriuret Pep Total Protein Albumin Urine WBC (Auto) Crossmatch 10/08/18 10/08/18 10/08/18 07:22 08:09 08:47 WBC RBC Hgb Hct MCH RDW Plt Count Lymph % (Auto) [facility] % (Auto) Lymph # [facility] # Baso # Seg Neutrophils % Seg Neuts % (Manual) Lymphocytes % (Manual) Seg Neutrophils # Seg Neutrophils # Man Lymphocytes # (Manual) PT INR APTT Heparin Anti-Xa Level POC ABG pH POC ABG pCO2 POC ABG pO2 Sodium Potassium 5.2 H Chloride 112.4 H Carbon Dioxide 17 L BUN 32 H Creatinine 2.1 H Glucose 148 H POC Glucose 134 H 148 H Hemoglobin A1c Lactic Acid Calcium 6.6 L Phosphorus AST Alkaline Phosphatase NT-Pro-B Natriuret Pep Total Protein Albumin Urine WBC (Auto) Crossmatch 10/08/18 10/08/18 10/08/18 10:21 13:29 14:21 WBC RBC Hgb Hct MCH RDW Plt Count Lymph % (Auto) [facility] % (Auto) Lymph # [facility] # Baso # Seg Neutrophils % Seg Neuts % (Manual) Lymphocytes % (Manual) Seg Neutrophils # Seg Neutrophils # Man Lymphocytes # (Manual) PT INR APTT Heparin Anti-Xa Level POC ABG pH POC ABG pCO2 POC ABG pO2 Sodium Potassium Chloride Carbon Dioxide BUN Creatinine Glucose POC Glucose 115 H 109 H 118 H Hemoglobin A1c Lactic Acid Calcium Phosphorus AST Alkaline Phosphatase NT-Pro-B Natriuret Pep Total Protein Albumin Urine WBC (Auto) Crossmatch 10/08/18 10/08/18 10/08/18 15:27 17:00 17:00 WBC 11.3 H RBC 3.21 L Hgb 7.9 L Hct 25.7 L MCH 25 L RDW 21.8 H Plt Count Lymph % (Auto) 8.[address] % (Auto) 7.7 H Lymph # 1.[address] [facility] # 0.9 H Baso # Seg Neutrophils % 82.8 H Seg Neuts % (Manual) Lymphocytes % (Manual) Seg Neutrophils # 9.3 H Seg Neutrophils # Man Lymphocytes # (Manual) PT INR APTT Heparin Anti-Xa Level POC ABG pH POC ABG pCO2 POC ABG pO2 Sodium Potassium Chloride Carbon Dioxide BUN Creatinine Glucose POC Glucose 129 H Hemoglobin A1c Lactic Acid Calcium Phosphorus AST Alkaline Phosphatase NT-Pro-B Natriuret Pep 3097 H Total Protein Albumin Urine WBC (Auto) Crossmatch 10/08/18 10/08/18 10/08/18 17:07 17:12 18:22 WBC RBC Hgb Hct MCH RDW Plt Count Lymph % (Auto) [facility] % (Auto) Lymph # [facility] # Baso # Seg Neutrophils % Seg Neuts % (Manual) Lymphocytes % (Manual) Seg Neutrophils # Seg Neutrophils # Man Lymphocytes # (Manual) PT INR APTT Heparin Anti-Xa Level POC ABG pH 7.337 L POC ABG pCO2 32.0 L POC ABG pO2 130 H Sodium Potassium Chloride 115.5 H Carbon Dioxide 17 L BUN 30 H Creatinine 1.9 H Glucose 103 H POC Glucose 119 H Hemoglobin A1c Lactic Acid Calcium 6.9 L Phosphorus AST Alkaline Phosphatase NT-Pro-B Natriuret Pep Total Protein Albumin Urine WBC (Auto) Crossmatch 10/08/18 10/08/18 10/09/18 20:09 20:57 01:10 WBC RBC Hgb Hct MCH RDW Plt Count Lymph % (Auto) [facility] % (Auto) Lymph # [facility] # Baso # Seg Neutrophils % Seg Neuts % (Manual) Lymphocytes % (Manual) Seg Neutrophils # Seg Neutrophils # Man Lymphocytes # (Manual) PT INR APTT Heparin Anti-Xa Level POC ABG pH POC ABG pCO2 POC ABG pO2 Sodium Potassium Chloride 114.3 H 113.7 H Carbon Dioxide 15 L 14 L BUN 29 H 29 H Creatinine 2.1 H 2.0 H Glucose 132 H 39 L* POC Glucose 150 H Hemoglobin A1c Lactic Acid Calcium 6.7 L 6.9 L Phosphorus AST Alkaline Phosphatase NT-Pro-B Natriuret Pep Total Protein Albumin Urine WBC (Auto) Crossmatch 10/09/18 10/09/18 10/09/18 01:10 01:43 03:20 WBC RBC Hgb Hct MCH RDW Plt Count Lymph % (Auto) [facility] % (Auto) Lymph # [facility] # Baso # Seg Neutrophils % Seg Neuts % (Manual) Lymphocytes % (Manual) Seg Neutrophils # Seg Neutrophils # Man Lymphocytes # (Manual) PT INR APTT Heparin Anti-Xa Level POC ABG pH POC ABG pCO2 POC ABG pO2 Sodium Potassium Chloride Carbon Dioxide BUN Creatinine Glucose POC Glucose < 40 L < 40 L Hemoglobin A1c Lactic Acid Calcium Phosphorus AST Alkaline Phosphatase NT-Pro-B Natriuret Pep 2865 H Total Protein Albumin Urine WBC (Auto) Crossmatch 10/09/18 10/09/18 10/09/18 04:23 05:03 05:25 WBC RBC Hgb Hct MCH RDW Plt Count Lymph % (Auto) [facility] % (Auto) Lymph # [facility] # Baso # Seg Neutrophils % Seg Neuts % (Manual) Lymphocytes % (Manual) Seg Neutrophils # Seg Neutrophils # Man Lymphocytes # (Manual) PT INR APTT Heparin Anti-Xa Level POC ABG pH POC ABG pCO2 30.6 L 32.3 L POC ABG pO2 118 H Sodium Potassium Chloride Carbon Dioxide BUN Creatinine Glucose POC Glucose 148 H Hemoglobin A1c Lactic Acid Calcium Phosphorus AST Alkaline Phosphatase NT-Pro-B Natriuret Pep Total Protein Albumin Urine WBC (Auto) Crossmatch 10/09/18 10/09/18 10/09/18 06:00 08:34 09:58 WBC RBC Hgb Hct MCH RDW Plt Count Lymph % (Auto) [facility] % (Auto) Lymph # [facility] # Baso # Seg Neutrophils % Seg Neuts % (Manual) Lymphocytes % (Manual) Seg Neutrophils # Seg Neutrophils # Man Lymphocytes # (Manual) PT INR APTT Heparin Anti-Xa Level POC ABG pH POC ABG pCO2 POC ABG pO2 Sodium Potassium Chloride Carbon Dioxide BUN Creatinine Glucose POC Glucose 173 H 196 H 183 H Hemoglobin A1c Lactic Acid Calcium Phosphorus AST Alkaline Phosphatase NT-Pro-B Natriuret Pep Total Protein Albumin Urine WBC (Auto) Crossmatch 10/09/18 10/09/18 10/09/18 12:25 12:46 18:16 WBC RBC Hgb Hct MCH RDW Plt Count Lymph % (Auto) [facility] % (Auto) Lymph # [facility] # Baso # Seg Neutrophils % Seg Neuts % (Manual) Lymphocytes % (Manual) Seg Neutrophils # Seg Neutrophils # Man Lymphocytes # (Manual) PT INR APTT Heparin Anti-Xa Level POC ABG pH POC ABG pCO2 POC ABG pO2 Sodium Potassium Chloride 110.3 H Carbon Dioxide 16 L BUN 24 H Creatinine 1.8 H Glucose 207 H POC Glucose 208 H 177 H Hemoglobin A1c Lactic Acid Calcium 6.9 L Phosphorus AST Alkaline Phosphatase NT-Pro-B Natriuret Pep Total Protein Albumin Urine WBC (Auto) Crossmatch 10/09/18 10/10/18 10/10/18 21:11 00:11 05:41 WBC RBC Hgb Hct MCH RDW Plt Count Lymph % (Auto) [facility] % (Auto) Lymph # [facility] # Baso # Seg Neutrophils % Seg Neuts % (Manual) Lymphocytes % (Manual) Seg Neutrophils # Seg Neutrophils # Man Lymphocytes # (Manual) PT INR APTT Heparin Anti-Xa Level POC ABG pH POC ABG pCO2 POC ABG pO2 Sodium Potassium Chloride Carbon Dioxide BUN Creatinine Glucose POC Glucose 124 H 156 H 42 L Hemoglobin A1c Lactic Acid Calcium Phosphorus AST Alkaline Phosphatase NT-Pro-B Natriuret Pep Total Protein Albumin Urine WBC (Auto) Crossmatch 10/10/18 10/10/18 10/10/18 05:45 07:28 12:07 WBC RBC Hgb Hct MCH RDW Plt Count Lymph % (Auto) [facility] % (Auto) Lymph # [facility] # Baso # Seg Neutrophils % Seg Neuts % (Manual) Lymphocytes % (Manual) Seg Neutrophils # Seg Neutrophils # Man Lymphocytes # (Manual) PT INR APTT Heparin Anti-Xa Level POC ABG pH POC ABG pCO2 POC ABG pO2 Sodium 146 H D Potassium Chloride 111.2 H Carbon Dioxide BUN 21 H Creatinine 1.8 H Glucose 44 L POC Glucose 114 H 49 L Hemoglobin A1c Lactic Acid Calcium 7.4 L Phosphorus AST Alkaline Phosphatase NT-Pro-B Natriuret Pep Total Protein Albumin Urine WBC (Auto) Crossmatch 10/10/18 10/10/18 10/10/18 12:37 18:02 20:47 WBC RBC Hgb Hct MCH RDW Plt Count Lymph % (Auto) [facility] % (Auto) Lymph # [facility] # Baso # Seg Neutrophils % Seg Neuts % (Manual) Lymphocytes % (Manual) Seg Neutrophils # Seg Neutrophils # Man Lymphocytes # (Manual) PT INR APTT Heparin Anti-Xa Level POC ABG pH POC ABG pCO2 POC ABG pO2 Sodium Potassium Chloride Carbon Dioxide BUN Creatinine Glucose POC Glucose 142 H 49 L 162 H Hemoglobin A1c Lactic Acid Calcium Phosphorus AST Alkaline Phosphatase NT-Pro-B Natriuret Pep Total Protein Albumin Urine WBC (Auto) Crossmatch 10/10/18 10/10/18 10/10/18 21:45 22:19 23:50 WBC RBC Hgb Hct MCH RDW Plt Count Lymph % (Auto) [facility] % (Auto) Lymph # [facility] # Baso # Seg Neutrophils % Seg Neuts % (Manual) Lymphocytes % (Manual) Seg Neutrophils # Seg Neutrophils # Man Lymphocytes # (Manual) PT INR APTT Heparin Anti-Xa Level POC ABG pH 7.334 L POC ABG pCO2 47.0 H POC ABG pO2 53 L 79 L Sodium Potassium Chloride Carbon Dioxide BUN Creatinine Glucose POC Glucose 185 H Hemoglobin A1c Lactic Acid Calcium Phosphorus AST Alkaline Phosphatase NT-Pro-B Natriuret Pep Total Protein Albumin Urine WBC (Auto) Crossmatch 10/11/18 10/11/18 10/11/18 05:00 06:41 07:17 WBC RBC Hgb Hct MCH RDW Plt Count Lymph % (Auto) [facility] % (Auto) Lymph # [facility] # Baso # Seg Neutrophils % Seg Neuts % (Manual) Lymphocytes % (Manual) Seg Neutrophils # Seg Neutrophils # Man Lymphocytes # (Manual) PT INR APTT Heparin Anti-Xa Level POC ABG pH POC ABG pCO2 POC ABG pO2 Sodium Potassium Chloride Carbon Dioxide BUN Creatinine 1.7 H Glucose 43 L POC Glucose 48 L 129 H Hemoglobin A1c Lactic Acid Calcium 7.7 L Phosphorus AST Alkaline Phosphatase NT-Pro-B Natriuret Pep Total Protein Albumin Urine WBC (Auto) Crossmatch 10/11/18 10/11/18 10/11/18 11:14 13:32 14:25 WBC RBC 3.32 L Hgb 8.2 L Hct 26.4 L MCH 25 L RDW 21.6 H Plt Count Lymph % (Auto) [facility] % (Auto) Lymph # [facility] # Baso # Seg Neutrophils % Seg Neuts % (Manual) Lymphocytes % (Manual) Seg Neutrophils # Seg Neutrophils # Man Lymphocytes # (Manual) PT 21.7 H INR 1.76 H APTT 50.5 H Heparin Anti-Xa Level POC ABG pH POC ABG pCO2 POC ABG pO2 Sodium Potassium Chloride Carbon Dioxide BUN Creatinine Glucose POC Glucose 138 H Hemoglobin A1c Lactic Acid Calcium Phosphorus AST Alkaline Phosphatase NT-Pro-B Natriuret Pep Total Protein Albumin Urine WBC (Auto) Crossmatch 10/11/18 10/11/18 10/11/18 14:25 15:41 17:31 WBC RBC Hgb Hct MCH RDW Plt Count Lymph % (Auto) [facility] % (Auto) Lymph # [facility] # Baso # Seg Neutrophils % Seg Neuts % (Manual) Lymphocytes % (Manual) Seg Neutrophils # Seg Neutrophils # Man Lymphocytes # (Manual) PT 20.6 H INR 1.65 H APTT 54.9 H Heparin Anti-Xa Level POC ABG pH POC ABG pCO2 POC ABG pO2 53 L Sodium Potassium Chloride Carbon Dioxide BUN Creatinine Glucose POC Glucose 133 H Hemoglobin A1c Lactic Acid Calcium Phosphorus AST Alkaline Phosphatase NT-Pro-B Natriuret Pep Total Protein Albumin Urine WBC (Auto) Crossmatch 10/12/18 10/12/18 10/12/18 00:30 03:56 04:25 WBC RBC Hgb Hct MCH RDW Plt Count Lymph % (Auto) [facility] % (Auto) Lymph # [facility] # Baso # Seg Neutrophils % Seg Neuts % (Manual) Lymphocytes % (Manual) Seg Neutrophils # Seg Neutrophils # Man Lymphocytes # (Manual) PT INR APTT Heparin Anti-Xa Level POC ABG pH 7.514 H POC ABG pCO2 31.2 L POC ABG pO2 Sodium Potassium Chloride Carbon Dioxide BUN Creatinine 1.6 H Glucose 287 H POC Glucose 353 H Hemoglobin A1c Lactic Acid Calcium 8.0 L Phosphorus AST Alkaline Phosphatase NT-Pro-B Natriuret Pep Total Protein Albumin Urine WBC (Auto) Crossmatch 10/12/18 10/12/18 10/12/18 04:49 12:13 17:53 WBC RBC Hgb Hct MCH RDW Plt Count Lymph % (Auto) [facility] % (Auto) Lymph # [facility] # Baso # Seg Neutrophils % Seg Neuts % (Manual) Lymphocytes % (Manual) Seg Neutrophils # Seg Neutrophils # Man Lymphocytes # (Manual) PT INR APTT Heparin Anti-Xa Level POC ABG pH POC ABG pCO2 POC ABG pO2 Sodium Potassium Chloride Carbon Dioxide BUN Creatinine Glucose POC Glucose 297 H 290 H 211 H Hemoglobin A1c Lactic Acid Calcium Phosphorus AST Alkaline Phosphatase NT-Pro-B Natriuret Pep Total Protein Albumin Urine WBC (Auto) Crossmatch 10/12/18 10/12/18 10/13/18 18:57 21:35 04:50 WBC 11.8 H RBC 3.08 L Hgb 7.4 L Hct 24.2 L MCH 24 L RDW 21.5 H Plt Count Lymph % (Auto) [facility] % (Auto) Lymph # [facility] # Baso # Seg Neutrophils % Seg Neuts % (Manual) Lymphocytes % (Manual) Seg Neutrophils # Seg Neutrophils # Man Lymphocytes # (Manual) PT INR APTT Heparin Anti-Xa Level 1.74 H POC ABG pH 7.497 H POC ABG pCO2 33.2 L POC ABG pO2 71 L Sodium Potassium Chloride Carbon Dioxide BUN Creatinine Glucose POC Glucose Hemoglobin A1c Lactic Acid Calcium Phosphorus AST Alkaline Phosphatase NT-Pro-B Natriuret Pep Total Protein Albumin Urine WBC (Auto) Crossmatch 10/13/18 10/13/18 10/13/18 05:25 05:25 05:37 WBC 12.1 H RBC 3.02 L Hgb 7.4 L Hct 23.7 L MCH 25 L RDW 21.0 H Plt Count Lymph % (Auto) 9.[address] [facility] % (Auto) 10.0 H Lymph # [facility] # 1.2 H Baso # Seg Neutrophils % 76.2 H Seg Neuts % (Manual) Lymphocytes % (Manual) Seg Neutrophils # 9.2 H Seg Neutrophils # Man Lymphocytes # (Manual) PT INR APTT Heparin Anti-Xa Level POC ABG pH POC ABG pCO2 POC ABG pO2 Sodium Potassium Chloride Carbon Dioxide BUN Creatinine 1.6 H Glucose 175 H POC Glucose 165 H Hemoglobin A1c Lactic Acid Calcium 8.3 L Phosphorus AST Alkaline Phosphatase NT-Pro-B Natriuret Pep Total Protein Albumin Urine WBC (Auto) Crossmatch 10/13/18 10/13/18 10/13/18 06:45 11:12 17:19 WBC RBC Hgb Hct MCH RDW Plt Count Lymph % (Auto) [facility] % (Auto) Lymph # [facility] # Baso # Seg Neutrophils % Seg Neuts % (Manual) Lymphocytes % (Manual) Seg Neutrophils # Seg Neutrophils # Man Lymphocytes # (Manual) PT 17.4 H INR 1.34 H APTT Heparin Anti-Xa Level POC ABG pH POC ABG pCO2 POC ABG pO2 Sodium Potassium Chloride Carbon Dioxide BUN Creatinine Glucose POC Glucose 223 H 129 H Hemoglobin A1c Lactic Acid Calcium Phosphorus AST Alkaline Phosphatase NT-Pro-B Natriuret Pep Total Protein Albumin Urine WBC (Auto) Crossmatch 10/13/18 10/14/18 10/14/18 23:39 05:01 06:14 WBC RBC Hgb Hct MCH RDW Plt Count Lymph % (Auto) [facility] % (Auto) Lymph # [facility] # Baso # Seg Neutrophils % Seg Neuts % (Manual) Lymphocytes % (Manual) Seg Neutrophils # Seg Neutrophils # Man Lymphocytes # (Manual) PT INR APTT Heparin Anti-Xa Level POC ABG pH POC ABG pCO2 POC ABG pO2 Sodium Potassium Chloride Carbon Dioxide BUN Creatinine 1.5 H Glucose 264 H POC Glucose 171 H 226 H Hemoglobin A1c Lactic Acid Calcium 8.0 L Phosphorus AST Alkaline Phosphatase NT-Pro-B Natriuret Pep Total Protein Albumin Urine WBC (Auto) Crossmatch 10/14/18 10/14/18 10/14/18 06:14 12:24 19:33 WBC RBC Hgb Hct MCH RDW Plt Count Lymph % (Auto) [facility] % (Auto) Lymph # [facility] # Baso # Seg Neutrophils % Seg Neuts % (Manual) Lymphocytes % (Manual) Seg Neutrophils # Seg Neutrophils # Man Lymphocytes # (Manual) PT 22.1 H INR 1.80 H APTT Heparin Anti-Xa Level POC ABG pH POC ABG pCO2 POC ABG pO2 Sodium Potassium Chloride Carbon Dioxide BUN Creatinine Glucose POC Glucose 403 H 164 H Hemoglobin A1c Lactic Acid Calcium Phosphorus AST Alkaline Phosphatase NT-Pro-B Natriuret Pep Total Protein Albumin Urine WBC (Auto) Crossmatch 10/15/18 10/15/18 10/15/18 00:29 06:03 07:00 WBC RBC Hgb Hct MCH RDW Plt Count Lymph % (Auto) [facility] % (Auto) Lymph # [facility] # Baso # Seg Neutrophils % Seg Neuts % (Manual) Lymphocytes % (Manual) Seg Neutrophils # Seg Neutrophils # Man Lymphocytes # (Manual) PT INR APTT Heparin Anti-Xa Level POC ABG pH POC ABG pCO2 POC ABG pO2 Sodium Potassium Chloride Carbon Dioxide BUN 20 H Creatinine 1.7 H Glucose 308 H POC Glucose 237 H 282 H Hemoglobin A1c Lactic Acid Calcium 7.6 L Phosphorus AST Alkaline Phosphatase NT-Pro-B Natriuret Pep Total Protein Albumin Urine WBC (Auto) Crossmatch 10/15/18 10/15/18 10/15/18 07:00 08:03 10:27 WBC RBC Hgb 5.8 L* Hct 18.5 L* MCH RDW Plt Count Lymph % (Auto) [facility] % (Auto) Lymph # [facility] # Baso # Seg Neutrophils % Seg Neuts % (Manual) Lymphocytes % (Manual) Seg Neutrophils # Seg Neutrophils # Man Lymphocytes # (Manual) PT 46.1 H INR 4.52 H APTT Heparin Anti-Xa Level 0.25 L POC ABG pH POC ABG pCO2 POC ABG pO2 Sodium Potassium Chloride Carbon Dioxide BUN Creatinine Glucose POC Glucose Hemoglobin A1c Lactic Acid Calcium Phosphorus AST Alkaline Phosphatase NT-Pro-B Natriuret Pep Total Protein Albumin Urine WBC (Auto) Crossmatch See Detail 10/15/18 10/15/18 10/16/18 14:03 15:30 10:18 WBC RBC Hgb Hct MCH RDW Plt Count Lymph % (Auto) [facility] % (Auto) Lymph # [facility] # Baso # Seg Neutrophils % Seg Neuts % (Manual) Lymphocytes % (Manual) Seg Neutrophils # Seg Neutrophils # Man Lymphocytes # (Manual) PT 53.8 H INR 5.48 H* APTT Heparin Anti-Xa Level POC ABG pH POC ABG pCO2 POC ABG pO2 Sodium Potassium Chloride Carbon Dioxide BUN Creatinine Glucose POC Glucose 336 H 259 H Hemoglobin A1c Lactic Acid Calcium Phosphorus AST Alkaline Phosphatase NT-Pro-B Natriuret Pep Total Protein Albumin Urine WBC (Auto) Crossmatch 10/16/18 10/16/18 10/16/18 10:18 10:18 13:03 WBC 14.8 H RBC 3.03 L Hgb 8.2 L Hct 24.9 L D MCH 27 L RDW 19.2 H Plt Count Lymph % (Auto) 5.[address] [facility] % (Auto) Lymph # 0.[address] [facility] # 1.1 H Baso # 0.2 H Seg Neutrophils % 84.3 H Seg Neuts % (Manual) Lymphocytes % (Manual) Seg Neutrophils # 12.5 H Seg Neutrophils # Man Lymphocytes # (Manual) PT INR APTT Heparin Anti-Xa Level POC ABG pH POC ABG pCO2 POC ABG pO2 Sodium Potassium Chloride Carbon Dioxide 20 L BUN 21 H Creatinine 1.5 H Glucose 326 H POC Glucose 329 H Hemoglobin A1c Lactic Acid Calcium 7.8 L Phosphorus AST Alkaline Phosphatase NT-Pro-B Natriuret Pep Total Protein Albumin Urine WBC (Auto) Crossmatch 10/16/18 10/17/18 10/17/18 13:27 00:35 05:00 WBC RBC Hgb Hct MCH RDW Plt Count Lymph % (Auto) [facility] % (Auto) Lymph # [facility] # Baso # Seg Neutrophils % Seg Neuts % (Manual) Lymphocytes % (Manual) Seg Neutrophils # Seg Neutrophils # Man Lymphocytes # (Manual) PT 55.4 H 60.2 H INR 5.68 H* 6.30 H* APTT Heparin Anti-Xa Level POC ABG pH POC ABG pCO2 POC ABG pO2 Sodium Potassium Chloride Carbon Dioxide BUN Creatinine Glucose POC Glucose 407 H Hemoglobin A1c Lactic Acid Calcium Phosphorus AST Alkaline Phosphatase NT-Pro-B Natriuret Pep Total Protein Albumin Urine WBC (Auto) Crossmatch 10/17/18 10/17/18 10/17/18 05:00 05:00 05:29 WBC 11.6 H RBC 2.99 L Hgb 8.0 L Hct 24.2 L MCH 27 L RDW 19.2 H Plt Count Lymph % (Auto) [facility] % (Auto) Lymph # [facility] # Baso # Seg Neutrophils % Seg Neuts % (Manual) 87.0 H Lymphocytes % (Manual) 9.0 L Seg Neutrophils # Seg Neutrophils # Man 10.1 H Lymphocytes # (Manual) 1.0 L PT INR APTT Heparin Anti-Xa Level POC ABG pH POC ABG pCO2 POC ABG pO2 Sodium Potassium 3.4 L D Chloride Carbon Dioxide BUN Creatinine 1.4 H Glucose 170 H POC Glucose 156 H Hemoglobin A1c Lactic Acid Calcium 7.6 L Phosphorus AST Alkaline Phosphatase NT-Pro-B Natriuret Pep Total Protein 5.4 L Albumin 2.2 L Urine WBC (Auto) Crossmatch 10/17/18 10/17/18 10/18/18 11:59 17:06 00:21 WBC RBC Hgb Hct MCH RDW Plt Count Lymph % (Auto) [facility] % (Auto) Lymph # [facility] # Baso # Seg Neutrophils % Seg Neuts % (Manual) Lymphocytes % (Manual) Seg Neutrophils # Seg Neutrophils # Man Lymphocytes # (Manual) PT INR APTT Heparin Anti-Xa Level POC ABG pH POC ABG pCO2 POC ABG pO2 Sodium Potassium Chloride Carbon Dioxide BUN Creatinine Glucose POC Glucose 389 H 151 H 355 H Hemoglobin A1c Lactic Acid Calcium Phosphorus AST Alkaline Phosphatase NT-Pro-B Natriuret Pep Total Protein Albumin Urine WBC (Auto) Crossmatch 10/18/18 10/18/18 10/18/18 04:17 04:17 04:17 WBC RBC 3.01 L Hgb 8.1 L Hct 24.6 L MCH 27 L RDW 19.7 H Plt Count Lymph % (Auto) 12.[address] [facility] % (Auto) Lymph # [facility] # Baso # Seg Neutrophils % 76.3 H Seg Neuts % (Manual) Lymphocytes % (Manual) Seg Neutrophils # 8.2 H Seg Neutrophils # Man Lymphocytes # (Manual) PT 39.5 H INR 3.72 H APTT Heparin Anti-Xa Level POC ABG pH POC ABG pCO2 POC ABG pO2 Sodium Potassium 3.5 L Chloride Carbon Dioxide BUN Creatinine 1.5 H Glucose 115 H POC Glucose Hemoglobin A1c Lactic Acid Calcium 7.4 L Phosphorus AST Alkaline Phosphatase NT-Pro-B Natriuret Pep Total Protein Albumin Urine WBC (Auto) Crossmatch 10/18/18 10/18/18 10/18/18 06:45 13:39 17:12 WBC RBC Hgb Hct MCH RDW Plt Count Lymph % (Auto) [facility] % (Auto) Lymph # [facility] # Baso # Seg Neutrophils % Seg Neuts % (Manual) Lymphocytes % (Manual) Seg Neutrophils # Seg Neutrophils # Man Lymphocytes # (Manual) PT INR APTT Heparin Anti-Xa Level POC ABG pH POC ABG pCO2 POC ABG pO2 Sodium Potassium Chloride Carbon Dioxide BUN Creatinine Glucose POC Glucose 170 H 415 H 377 H Hemoglobin A1c Lactic Acid Calcium Phosphorus AST Alkaline Phosphatase NT-Pro-B Natriuret Pep Total Protein Albumin Urine WBC (Auto) Crossmatch 10/19/18 10/19/18 10/19/18 00:48 05:35 05:52 WBC RBC 2.84 L Hgb 7.7 L Hct 23.2 L MCH 27 L RDW 19.8 H Plt Count Lymph % (Auto) 11.[address] % (Auto) Lymph # 1.[address] [facility] # Baso # Seg Neutrophils % 78.5 H Seg Neuts % (Manual) Lymphocytes % (Manual) Seg Neutrophils # 8.1 H Seg Neutrophils # Man Lymphocytes # (Manual) PT INR APTT Heparin Anti-Xa Level POC ABG pH POC ABG pCO2 POC ABG pO2 Sodium Potassium Chloride Carbon Dioxide BUN Creatinine Glucose POC Glucose 308 H 116 H Hemoglobin A1c Lactic Acid Calcium Phosphorus AST Alkaline Phosphatase NT-Pro-B Natriuret Pep Total Protein Albumin Urine WBC (Auto) Crossmatch 10/19/18 10/19/18 10/19/18 05:52 07:12 09:41 WBC RBC Hgb 8.1 L Hct 24.6 L MCH RDW Plt Count Lymph % (Auto) [facility] % (Auto) Lymph # [facility] # Baso # Seg Neutrophils % Seg Neuts % (Manual) Lymphocytes % (Manual) Seg Neutrophils # Seg Neutrophils # Man Lymphocytes # (Manual) PT 18.1 H INR 1.40 H APTT Heparin Anti-Xa Level POC ABG pH POC ABG pCO2 POC ABG pO2 Sodium Potassium Chloride Carbon Dioxide BUN 21 H Creatinine 1.6 H Glucose 128 H POC Glucose Hemoglobin A1c Lactic Acid Calcium 7.7 L Phosphorus AST Alkaline Phosphatase NT-Pro-B Natriuret Pep Total Protein Albumin Urine WBC (Auto) Crossmatch 10/19/18 10/19/18 10/19/18 09:41 11:46 16:12 WBC RBC Hgb Hct MCH RDW Plt Count Lymph % (Auto) [facility] % (Auto) Lymph # [facility] # Baso # Seg Neutrophils % Seg Neuts % (Manual) Lymphocytes % (Manual) Seg Neutrophils # Seg Neutrophils # Man Lymphocytes # (Manual) PT 17.7 H INR 1.36 H APTT Heparin Anti-Xa Level POC ABG pH POC ABG pCO2 POC ABG pO2 Sodium Potassium Chloride Carbon Dioxide BUN Creatinine Glucose POC Glucose 212 H 260 H Hemoglobin A1c Lactic Acid Calcium Phosphorus AST Alkaline Phosphatase NT-Pro-B Natriuret Pep Total Protein Albumin Urine WBC (Auto) Crossmatch 10/19/18 10/19/18 10/19/18 19:56 22:09 Unknown WBC RBC Hgb Hct MCH RDW Plt Count Lymph % (Auto) [facility] % (Auto) Lymph # [facility] # Baso # Seg Neutrophils % Seg Neuts % (Manual) Lymphocytes % (Manual) Seg Neutrophils # Seg Neutrophils # Man Lymphocytes # (Manual) PT INR APTT Heparin Anti-Xa Level 0.19 L POC ABG pH 7.458 H POC ABG pCO2 POC ABG pO2 63 L Sodium Potassium Chloride Carbon Dioxide BUN Creatinine Glucose POC Glucose 216 H Hemoglobin A1c Lactic Acid Calcium Phosphorus AST Alkaline Phosphatase NT-Pro-B Natriuret Pep Total Protein Albumin Urine WBC (Auto) Crossmatch 10/20/18 10/20/18 10/20/18 03:00 03:00 03:00 WBC 14.8 H RBC 2.81 L Hgb 7.5 L Hct 23.1 L MCH 27 L RDW 20.0 H Plt Count Lymph % (Auto) 11.[address] [facility] % (Auto) Lymph # [facility] # 0.9 H Baso # Seg Neutrophils % 79.7 H Seg Neuts % (Manual) Lymphocytes % (Manual) Seg Neutrophils # 11.8 H Seg Neutrophils # Man Lymphocytes # (Manual) PT 16.9 H INR 1.29 H APTT Heparin Anti-Xa Level 0.24 L POC ABG pH POC ABG pCO2 POC ABG pO2 Sodium Potassium Chloride 97.8 L Carbon Dioxide BUN 20 H Creatinine 1.5 H Glucose 206 H POC Glucose Hemoglobin A1c Lactic Acid Calcium 7.8 L Phosphorus AST Alkaline Phosphatase NT-Pro-B Natriuret Pep Total Protein Albumin Urine WBC (Auto) Crossmatch 10/20/18 10/20/18 10/20/18 06:59 10:20 10:59 WBC RBC Hgb Hct MCH RDW Plt Count Lymph % (Auto) [facility] % (Auto) Lymph # [facility] # Baso # Seg Neutrophils % Seg Neuts % (Manual) Lymphocytes % (Manual) Seg Neutrophils # Seg Neutrophils # Man Lymphocytes # (Manual) PT 15.5 H INR 1.16 H APTT Heparin Anti-Xa Level < 0.10 L POC ABG pH POC ABG pCO2 POC ABG pO2 Sodium Potassium Chloride Carbon Dioxide BUN Creatinine Glucose POC Glucose 348 H 227 H Hemoglobin A1c Lactic Acid Calcium Phosphorus AST Alkaline Phosphatase NT-Pro-B Natriuret Pep Total Protein Albumin Urine WBC (Auto) Crossmatch 10/20/18 10/20/18 10/21/18 16:15 17:14 00:53 WBC RBC Hgb Hct MCH RDW Plt Count Lymph % (Auto) [facility] % (Auto) Lymph # [facility] # Baso # Seg Neutrophils % Seg Neuts % (Manual) Lymphocytes % (Manual) Seg Neutrophils # Seg Neutrophils # Man Lymphocytes # (Manual) PT INR APTT Heparin Anti-Xa Level 0.24 L POC ABG pH POC ABG pCO2 POC ABG pO2 Sodium Potassium Chloride Carbon Dioxide BUN Creatinine Glucose POC Glucose 279 H 136 H Hemoglobin A1c Lactic Acid Calcium Phosphorus AST Alkaline Phosphatase NT-Pro-B Natriuret Pep Total Protein Albumin Urine WBC (Auto) Crossmatch 10/21/18 10/21/18 10/21/18 05:45 05:45 05:45 WBC 15.8 H RBC 2.79 L Hgb 7.5 L Hct 22.9 L MCH 27 L RDW 19.8 H Plt Count Lymph % (Auto) 7.[address] [facility] % (Auto) Lymph # 1.[address] [facility] # Baso # Seg Neutrophils % 85.7 H Seg Neuts % (Manual) Lymphocytes % (Manual) Seg Neutrophils # 13.5 H Seg Neutrophils # Man Lymphocytes # (Manual) PT 16.9 H INR 1.29 H APTT Heparin Anti-Xa Level POC ABG pH POC ABG pCO2 POC ABG pO2 Sodium Potassium Chloride Carbon Dioxide BUN 18 H Creatinine 1.4 H Glucose 339 H POC Glucose Hemoglobin A1c Lactic Acid Calcium 8.3 L Phosphorus AST Alkaline Phosphatase NT-Pro-B Natriuret Pep Total Protein Albumin Urine WBC (Auto) Crossmatch 10/21/18 10/21/18 10/21/18 08:00 10:13 11:00 WBC RBC Hgb Hct MCH RDW Plt Count Lymph % (Auto) [facility] % (Auto) Lymph # [facility] # Baso # Seg Neutrophils % Seg Neuts % (Manual) Lymphocytes % (Manual) Seg Neutrophils # Seg Neutrophils # Man Lymphocytes # (Manual) PT INR APTT Heparin Anti-Xa Level POC ABG pH POC ABG pCO2 POC ABG pO2 Sodium Potassium Chloride Carbon Dioxide BUN Creatinine Glucose POC Glucose 398 H 295 H Hemoglobin A1c Lactic Acid Calcium Phosphorus AST Alkaline Phosphatase NT-Pro-B Natriuret Pep Total Protein Albumin Urine WBC (Auto) 125.0 H Crossmatch 10/21/18 10/21/18 10/21/18 11:18 17:20 17:52 WBC RBC Hgb Hct MCH RDW Plt Count Lymph % (Auto) [facility] % (Auto) Lymph # [facility] # Baso # Seg Neutrophils % Seg Neuts % (Manual) Lymphocytes % (Manual) Seg Neutrophils # Seg Neutrophils # Man Lymphocytes # (Manual) PT 17.2 H INR 1.32 H APTT 40.0 H Heparin Anti-Xa Level POC ABG pH POC ABG pCO2 POC ABG pO2 Sodium Potassium Chloride Carbon Dioxide BUN Creatinine Glucose POC Glucose 235 H 271 H Hemoglobin A1c Lactic Acid Calcium Phosphorus AST Alkaline Phosphatase NT-Pro-B Natriuret Pep Total Protein Albumin Urine WBC (Auto) Crossmatch 10/21/18 10/22/18 10/22/18 23:41 00:47 04:39 WBC 16.1 H RBC 2.69 L Hgb 6.7 L 7.3 L Hct 19.8 L* 22.3 L MCH 27 L RDW 20.4 H Plt Count Lymph % (Auto) 6.[address] [facility] % (Auto) Lymph # 1.[address] [facility] # 1.0 H Baso # Seg Neutrophils % 85.3 H Seg Neuts % (Manual) Lymphocytes % (Manual) Seg Neutrophils # 13.8 H Seg Neutrophils # Man Lymphocytes # (Manual) PT INR APTT Heparin Anti-Xa Level POC ABG pH POC ABG pCO2 POC ABG pO2 Sodium Potassium Chloride Carbon Dioxide BUN Creatinine Glucose POC Glucose 157 H Hemoglobin A1c Lactic Acid Calcium Phosphorus AST Alkaline Phosphatase NT-Pro-B Natriuret Pep Total Protein Albumin Urine WBC (Auto) Crossmatch 10/22/18 10/22/18 10/22/18 04:39 04:39 04:39 WBC RBC Hgb Hct MCH RDW Plt Count Lymph % (Auto) [facility] % (Auto) Lymph # [facility] # Baso # Seg Neutrophils % Seg Neuts % (Manual) Lymphocytes % (Manual) Seg Neutrophils # Seg Neutrophils # Man Lymphocytes # (Manual) PT 20.3 H INR 1.62 H APTT Heparin Anti-Xa Level 0.12 L POC ABG pH POC ABG pCO2 POC ABG pO2 Sodium Potassium Chloride Carbon Dioxide BUN 20 H Creatinine 1.7 H Glucose 255 H POC Glucose Hemoglobin A1c Lactic Acid Calcium 8.1 L Phosphorus AST Alkaline Phosphatase NT-Pro-B Natriuret Pep Total Protein Albumin Urine WBC (Auto) Crossmatch See Detail 10/22/18 10/22/18 10/22/18 05:09 11:20 11:20 WBC RBC Hgb 7.4 L Hct 21.9 L MCH RDW Plt Count 457 H Lymph % (Auto) [facility] % (Auto) Lymph # [facility] # Baso # Seg Neutrophils % Seg Neuts % (Manual) Lymphocytes % (Manual) Seg Neutrophils # Seg Neutrophils # Man Lymphocytes # (Manual) PT 20.8 H INR 1.67 H APTT Heparin Anti-Xa Level 0.20 L POC ABG pH POC ABG pCO2 POC ABG pO2 Sodium Potassium Chloride Carbon Dioxide BUN Creatinine Glucose POC Glucose 297 H Hemoglobin A1c Lactic Acid Calcium Phosphorus AST Alkaline Phosphatase NT-Pro-B Natriuret Pep Total Protein Albumin Urine WBC (Auto) Crossmatch 10/22/18 12:09 WBC RBC Hgb Hct MCH RDW Plt Count Lymph % (Auto) [facility] % (Auto) Lymph # [facility] # Baso # Seg Neutrophils % Seg Neuts % (Manual) Lymphocytes % (Manual) Seg Neutrophils # Seg Neutrophils # Man Lymphocytes # (Manual) PT INR APTT Heparin Anti-Xa Level POC ABG pH POC ABG pCO2 POC ABG pO2 Sodium Potassium Chloride Carbon Dioxide BUN Creatinine Glucose POC Glucose 125 H Hemoglobin A1c Lactic Acid Calcium Phosphorus AST Alkaline Phosphatase NT-Pro-B Natriuret Pep Total Protein Albumin Urine WBC (Auto) Crossmatch
[2018-10-22] MEDS: D50W (25GM) Syringe IV PRN (16:51)
[2018-10-22] MEDS: COUMADIN PO SCH (19:09)
--- NOTE | 2018-10-22 19:12 | Progress Note ---
Assessment and Plan Patient resting on 2 litres O2. O2 saturation O2 saturation 100%. Patient says feeling better. No acute respiratory distress. ABG on room air POC ABG pH 7.426 (7.35-7.45) 10/13/18 09:41 POC ABG pCO2 37.2 (35-45) 10/13/18 09:41 POC ABG HCO3 24.4 (22-26 mml/L) 10/13/18 09:41 POC ABG Total CO2 26 (23-27mmol/L) 10/13/18 09:41 POC ABG O2 Sat 70 10/13/18 09:41 - Patient Problems (1) Acute respiratory failure with hypoxia Current Visit: Yes Status: Acute Plan to address problem: O2 2 litres via nasal canula. Albuterol/atrovent aerosol treatments q 6 hours. ABG on room air. POC ABG pH 7.426 (7.35-7.45) 10/13/18 09:41 POC ABG pCO2 37.2 (35-45) 10/13/18 09:41 POC ABG HCO3 24.4 (22-26 mml/L) 10/13/18 09:41 POC ABG Total CO2 26 (23-27mmol/L) 10/13/18 09:41 POC ABG O2 Sat 70 10/13/18 09:41 (2) Acute on chronic renal failure Current Visit: Yes Status: Acute Plan to address problem: Management as per nephrology. (3) Altered mental status Current Visit: Yes Status: Resolved Plan to address problem: Management as per primary care. (4) Heart failure with reduced ejection fraction Current Visit: Yes Status: Acute Plan to address problem: Management as per cardiology. (5) Diabetes Current Visit: Yes Status: Chronic Plan to address problem: Management as per primary care. (6) H/O mitral valve replacement with mechanical valve Current Visit: Yes Status: Chronic Plan to address problem: Management as per cardiology. Subjective Date of service: 10/22/18 Principal diagnosis: Ac hypoxemic resp failure; Seizures (?hypoglycemic); Ac encephalopathy(T/M) Interval history: Patient resting on 2 litres O2. O2 saturation O2 saturation 100%. Patient says feeling better. No acute respiratory distress. ABG on room air POC ABG pH 7.426 (7.35-7.45) 10/13/18 09:41 POC ABG pCO2 37.2 (35-45) 10/13/18 09:41 POC ABG HCO3 24.4 (22-26 mml/L) 10/13/18 09:41 POC ABG Total CO2 26 (23-27mmol/L) 10/13/18 09:41 POC ABG O2 Sat 70 10/13/18 09:41 Objective Vital Signs - 12hr 10/22/18 10/22/18 10/22/18 12:06 12:09 14:42 Temperature 98.9 F Pulse Rate 89 81 Respiratory 18 Rate Blood Pressure 95/54 121/75 O2 Sat by Pulse 100 Oximetry Constitutional: no acute distress, other (middle aged AAF, normocephalic and with mildly increased resp effort at rest) Eyes: non-icteric ENT: oropharynx moist, other (extubated) Neck: supple, no lymphadenopathy, no JVD Effort: mildly labored Ascultation: Bilateral: diminished breath sounds (bases), rales Percussion: Right: dull (base), Bilateral: not dull Cardiovascular: regular rate and rhythm, other (+ metalic valve click) Gastrointestinal: normoactive bowel sounds, soft, non-tender, non-distended, other (No HSM) Integumentary: normal Extremities: no cyanosis, no edema, pulses normal, no ischemia or petechiae Neurologic: non-focal exam (grossly), pupils equal and round, CN II-XII normal, motor strength normal and, other (somnolent) Psychiatric: other (flat affect) CBC and BMP: 10/22/18 11:20 10/22/18 17:11 ABG, PT/INR, D-dimer: ABG POC ABG pH 7.458 (7.35-7.45) H 10/19/18 19:56 POC ABG pCO2 37.9 (35-45) 10/19/18 19:56 POC ABG pO2 63 (80-105) L 10/19/18 19:56 POC ABG HCO3 26.8 (22-26 mml/L) 10/19/18 19:56 POC ABG Total CO2 28 (23-27mmol/L) 10/19/18 19:56 POC ABG O2 Sat 93 10/19/18 19:56 PT/INR, D-dimer PT 20.8 Sec. (12.2-14.9) H 10/22/18 11:20 INR 1.67 (0.87-1.13) H 10/22/18 11:20 Abnormal lab findings: Abnormal Labs 10/07/18 10/07/18 10/07/18 02:20 02:43 02:43 WBC RBC Hgb Hct MCH 25 L RDW 21.5 H Plt Count Lymph % (Auto) [place] % (Auto) Lymph # 0.9 L [place] # Baso # Seg Neutrophils % 78.4 H Seg Neuts % (Manual) Lymphocytes % (Manual) Seg Neutrophils # Seg Neutrophils # Man Lymphocytes # (Manual) PT INR APTT Heparin Anti-Xa Level POC ABG pH POC ABG pCO2 POC ABG pO2 Sodium Potassium Chloride 108.0 H Carbon Dioxide 21 L BUN Creatinine 1.5 H Glucose 115 H POC Glucose 136 H Hemoglobin A1c Lactic Acid Calcium Phosphorus AST 51 H Alkaline Phosphatase 257 H NT-Pro-B Natriuret Pep Total Protein Albumin Urine WBC (Auto) Crossmatch 10/07/18 10/07/18 10/07/18 02:43 04:32 05:12 WBC RBC Hgb Hct MCH RDW Plt Count Lymph % (Auto) [place] % (Auto) Lymph # [place] # Baso # Seg Neutrophils % Seg Neuts % (Manual) Lymphocytes % (Manual) Seg Neutrophils # Seg Neutrophils # Man Lymphocytes # (Manual) PT 25.4 H INR 2.14 H APTT Heparin Anti-Xa Level POC ABG pH POC ABG pCO2 33.6 L POC ABG pO2 69 L Sodium Potassium Chloride Carbon Dioxide BUN Creatinine Glucose POC Glucose Hemoglobin A1c Lactic Acid 2.40 H* Calcium Phosphorus AST Alkaline Phosphatase NT-Pro-B Natriuret Pep Total Protein Albumin Urine WBC (Auto) Crossmatch 10/07/18 10/07/18 10/07/18 06:28 18:39 20:26 WBC RBC Hgb Hct MCH RDW Plt Count Lymph % (Auto) [place] % (Auto) Lymph # [place] # Baso # Seg Neutrophils % Seg Neuts % (Manual) Lymphocytes % (Manual) Seg Neutrophils # Seg Neutrophils # Man Lymphocytes # (Manual) PT INR APTT Heparin Anti-Xa Level POC ABG pH POC ABG pCO2 POC ABG pO2 Sodium Potassium Chloride Carbon Dioxide BUN Creatinine Glucose POC Glucose 164 H 440 H > 500 H Hemoglobin A1c Lactic Acid Calcium Phosphorus AST Alkaline Phosphatase NT-Pro-B Natriuret Pep Total Protein Albumin Urine WBC (Auto) Crossmatch 10/07/18 10/07/18 10/07/18 20:28 21:53 22:08 WBC RBC Hgb Hct MCH RDW Plt Count Lymph % (Auto) [place] % (Auto) Lymph # [place] # Baso # Seg Neutrophils % Seg Neuts % (Manual) Lymphocytes % (Manual) Seg Neutrophils # Seg Neutrophils # Man Lymphocytes # (Manual) PT INR APTT Heparin Anti-Xa Level POC ABG pH POC ABG pCO2 POC ABG pO2 Sodium 136 L D Potassium 6.4 H* D Chloride Carbon Dioxide 10 L D BUN 30 H Creatinine 2.0 H Glucose 544 H* POC Glucose 483 H > 500 H Hemoglobin A1c Lactic Acid Calcium 7.0 L D Phosphorus AST Alkaline Phosphatase NT-Pro-B Natriuret Pep Total Protein Albumin Urine WBC (Auto) Crossmatch 10/07/18 10/07/18 10/07/18 22:08 22:08 22:56 WBC RBC Hgb Hct MCH RDW Plt Count Lymph % (Auto) [place] % (Auto) Lymph # [place] # Baso # Seg Neutrophils % Seg Neuts % (Manual) Lymphocytes % (Manual) Seg Neutrophils # Seg Neutrophils # Man Lymphocytes # (Manual) PT INR APTT Heparin Anti-Xa Level POC ABG pH POC ABG pCO2 POC ABG pO2 Sodium Potassium Chloride Carbon Dioxide BUN Creatinine Glucose POC Glucose 462 H Hemoglobin A1c 10.2 H Lactic Acid Calcium Phosphorus 7.40 H AST Alkaline Phosphatase NT-Pro-B Natriuret Pep Total Protein Albumin Urine WBC (Auto) Crossmatch 10/07/18 10/08/18 10/08/18 23:39 00:58 02:09 WBC RBC Hgb Hct MCH RDW Plt Count Lymph % (Auto) [place] % (Auto) Lymph # [place] # Baso # Seg Neutrophils % Seg Neuts % (Manual) Lymphocytes % (Manual) Seg Neutrophils # Seg Neutrophils # Man Lymphocytes # (Manual) PT INR APTT Heparin Anti-Xa Level POC ABG pH POC ABG pCO2 POC ABG pO2 Sodium Potassium Chloride Carbon Dioxide BUN Creatinine Glucose POC Glucose 396 H 375 H 285 H Hemoglobin A1c Lactic Acid Calcium Phosphorus AST Alkaline Phosphatase NT-Pro-B Natriuret Pep Total Protein Albumin Urine WBC (Auto) Crossmatch 10/08/18 10/08/18 10/08/18 03:10 03:33 04:05 WBC RBC Hgb Hct MCH RDW Plt Count Lymph % (Auto) [place] % (Auto) Lymph # [place] # Baso # Seg Neutrophils % Seg Neuts % (Manual) Lymphocytes % (Manual) Seg Neutrophils # Seg Neutrophils # Man Lymphocytes # (Manual) PT INR APTT Heparin Anti-Xa Level POC ABG pH 7.243 L POC ABG pCO2 33.8 L POC ABG pO2 126 H Sodium Potassium 5.3 H Chloride 110.7 H Carbon Dioxide 14 L BUN 33 H Creatinine 2.2 H Glucose 193 H POC Glucose 251 H Hemoglobin A1c Lactic Acid Calcium 7.0 L Phosphorus AST Alkaline Phosphatase 155 H NT-Pro-B Natriuret Pep Total Protein 5.2 L D Albumin 2.6 L Urine WBC (Auto) Crossmatch 10/08/18 10/08/18 10/08/18 04:05 04:05 04:09 WBC 11.8 H RBC 3.32 L Hgb 8.3 L Hct 27.5 L D MCH 25 L RDW 22.0 H Plt Count Lymph % (Auto) 6.8 L [place] % (Auto) 12.0 H Lymph # 0.8 L [place] # 1.4 H Baso # Seg Neutrophils % 80.6 H Seg Neuts % (Manual) Lymphocytes % (Manual) Seg Neutrophils # 9.5 H Seg Neutrophils # Man Lymphocytes # (Manual) PT INR APTT Heparin Anti-Xa Level POC ABG pH POC ABG pCO2 POC ABG pO2 Sodium Potassium Chloride Carbon Dioxide BUN Creatinine Glucose POC Glucose 175 H Hemoglobin A1c Lactic Acid 3.70 H* Calcium Phosphorus AST Alkaline Phosphatase NT-Pro-B Natriuret Pep Total Protein Albumin Urine WBC (Auto) Crossmatch 10/08/18 10/08/18 10/08/18 05:07 06:05 07:14 WBC RBC Hgb Hct MCH RDW Plt Count Lymph % (Auto) [place] % (Auto) Lymph # [place] # Baso # Seg Neutrophils % Seg Neuts % (Manual) Lymphocytes % (Manual) Seg Neutrophils # Seg Neutrophils # Man Lymphocytes # (Manual) PT INR APTT Heparin Anti-Xa Level POC ABG pH POC ABG pCO2 POC ABG pO2 Sodium Potassium Chloride Carbon Dioxide BUN Creatinine Glucose POC Glucose 125 H 122 H 147 H Hemoglobin A1c Lactic Acid Calcium Phosphorus AST Alkaline Phosphatase NT-Pro-B Natriuret Pep Total Protein Albumin Urine WBC (Auto) Crossmatch 10/08/18 10/08/18 10/08/18 07:22 08:09 08:47 WBC RBC Hgb Hct MCH RDW Plt Count Lymph % (Auto) [place] % (Auto) Lymph # [place] # Baso # Seg Neutrophils % Seg Neuts % (Manual) Lymphocytes % (Manual) Seg Neutrophils # Seg Neutrophils # Man Lymphocytes # (Manual) PT INR APTT Heparin Anti-Xa Level POC ABG pH POC ABG pCO2 POC ABG pO2 Sodium Potassium 5.2 H Chloride 112.4 H Carbon Dioxide 17 L BUN 32 H Creatinine 2.1 H Glucose 148 H POC Glucose 134 H 148 H Hemoglobin A1c Lactic Acid Calcium 6.6 L Phosphorus AST Alkaline Phosphatase NT-Pro-B Natriuret Pep Total Protein Albumin Urine WBC (Auto) Crossmatch 10/08/18 10/08/18 10/08/18 10:21 13:29 14:21 WBC RBC Hgb Hct MCH RDW Plt Count Lymph % (Auto) [place] % (Auto) Lymph # [place] # Baso # Seg Neutrophils % Seg Neuts % (Manual) Lymphocytes % (Manual) Seg Neutrophils # Seg Neutrophils # Man Lymphocytes # (Manual) PT INR APTT Heparin Anti-Xa Level POC ABG pH POC ABG pCO2 POC ABG pO2 Sodium Potassium Chloride Carbon Dioxide BUN Creatinine Glucose POC Glucose 115 H 109 H 118 H Hemoglobin A1c Lactic Acid Calcium Phosphorus AST Alkaline Phosphatase NT-Pro-B Natriuret Pep Total Protein Albumin Urine WBC (Auto) Crossmatch 10/08/18 10/08/18 10/08/18 15:27 17:00 17:00 WBC 11.3 H RBC 3.21 L Hgb 7.9 L Hct 25.7 L MCH 25 L RDW 21.8 H Plt Count Lymph % (Auto) 8.5 L [place] % (Auto) 7.7 H Lymph # 1.0 L [place] # 0.9 H Baso # Seg Neutrophils % 82.8 H Seg Neuts % (Manual) Lymphocytes % (Manual) Seg Neutrophils # 9.3 H Seg Neutrophils # Man Lymphocytes # (Manual) PT INR APTT Heparin Anti-Xa Level POC ABG pH POC ABG pCO2 POC ABG pO2 Sodium Potassium Chloride Carbon Dioxide BUN Creatinine Glucose POC Glucose 129 H Hemoglobin A1c Lactic Acid Calcium Phosphorus AST Alkaline Phosphatase NT-Pro-B Natriuret Pep 3097 H Total Protein Albumin Urine WBC (Auto) Crossmatch 10/08/18 10/08/18 10/08/18 17:07 17:12 18:22 WBC RBC Hgb Hct MCH RDW Plt Count Lymph % (Auto) [place] % (Auto) Lymph # [place] # Baso # Seg Neutrophils % Seg Neuts % (Manual) Lymphocytes % (Manual) Seg Neutrophils # Seg Neutrophils # Man Lymphocytes # (Manual) PT INR APTT Heparin Anti-Xa Level POC ABG pH 7.337 L POC ABG pCO2 32.0 L POC ABG pO2 130 H Sodium Potassium Chloride 115.5 H Carbon Dioxide 17 L BUN 30 H Creatinine 1.9 H Glucose 103 H POC Glucose 119 H Hemoglobin A1c Lactic Acid Calcium 6.9 L Phosphorus AST Alkaline Phosphatase NT-Pro-B Natriuret Pep Total Protein Albumin Urine WBC (Auto) Crossmatch 10/08/18 10/08/18 10/09/18 20:09 20:57 01:10 WBC RBC Hgb Hct MCH RDW Plt Count Lymph % (Auto) [place] % (Auto) Lymph # [place] # Baso # Seg Neutrophils % Seg Neuts % (Manual) Lymphocytes % (Manual) Seg Neutrophils # Seg Neutrophils # Man Lymphocytes # (Manual) PT INR APTT Heparin Anti-Xa Level POC ABG pH POC ABG pCO2 POC ABG pO2 Sodium Potassium Chloride 114.3 H 113.7 H Carbon Dioxide 15 L 14 L BUN 29 H 29 H Creatinine 2.1 H 2.0 H Glucose 132 H 39 L* POC Glucose 150 H Hemoglobin A1c Lactic Acid Calcium 6.7 L 6.9 L Phosphorus AST Alkaline Phosphatase NT-Pro-B Natriuret Pep Total Protein Albumin Urine WBC (Auto) Crossmatch 10/09/18 10/09/18 10/09/18 01:10 01:43 03:20 WBC RBC Hgb Hct MCH RDW Plt Count Lymph % (Auto) [place] % (Auto) Lymph # [place] # Baso # Seg Neutrophils % Seg Neuts % (Manual) Lymphocytes % (Manual) Seg Neutrophils # Seg Neutrophils # Man Lymphocytes # (Manual) PT INR APTT Heparin Anti-Xa Level POC ABG pH POC ABG pCO2 POC ABG pO2 Sodium Potassium Chloride Carbon Dioxide BUN Creatinine Glucose POC Glucose < 40 L < 40 L Hemoglobin A1c Lactic Acid Calcium Phosphorus AST Alkaline Phosphatase NT-Pro-B Natriuret Pep 2865 H Total Protein Albumin Urine WBC (Auto) Crossmatch 10/09/18 10/09/18 10/09/18 04:23 05:03 05:25 WBC RBC Hgb Hct MCH RDW Plt Count Lymph % (Auto) [place] % (Auto) Lymph # [place] # Baso # Seg Neutrophils % Seg Neuts % (Manual) Lymphocytes % (Manual) Seg Neutrophils # Seg Neutrophils # Man Lymphocytes # (Manual) PT INR APTT Heparin Anti-Xa Level POC ABG pH POC ABG pCO2 30.6 L 32.3 L POC ABG pO2 118 H Sodium Potassium Chloride Carbon Dioxide BUN Creatinine Glucose POC Glucose 148 H Hemoglobin A1c Lactic Acid Calcium Phosphorus AST Alkaline Phosphatase NT-Pro-B Natriuret Pep Total Protein Albumin Urine WBC (Auto) Crossmatch 10/09/18 10/09/18 10/09/18 06:00 08:34 09:58 WBC RBC Hgb Hct MCH RDW Plt Count Lymph % (Auto) [place] % (Auto) Lymph # [place] # Baso # Seg Neutrophils % Seg Neuts % (Manual) Lymphocytes % (Manual) Seg Neutrophils # Seg Neutrophils # Man Lymphocytes # (Manual) PT INR APTT Heparin Anti-Xa Level POC ABG pH POC ABG pCO2 POC ABG pO2 Sodium Potassium Chloride Carbon Dioxide BUN Creatinine Glucose POC Glucose 173 H 196 H 183 H Hemoglobin A1c Lactic Acid Calcium Phosphorus AST Alkaline Phosphatase NT-Pro-B Natriuret Pep Total Protein Albumin Urine WBC (Auto) Crossmatch 10/09/18 10/09/18 10/09/18 12:25 12:46 18:16 WBC RBC Hgb Hct MCH RDW Plt Count Lymph % (Auto) [place] % (Auto) Lymph # [place] # Baso # Seg Neutrophils % Seg Neuts % (Manual) Lymphocytes % (Manual) Seg Neutrophils # Seg Neutrophils # Man Lymphocytes # (Manual) PT INR APTT Heparin Anti-Xa Level POC ABG pH POC ABG pCO2 POC ABG pO2 Sodium Potassium Chloride 110.3 H Carbon Dioxide 16 L BUN 24 H Creatinine 1.8 H Glucose 207 H POC Glucose 208 H 177 H Hemoglobin A1c Lactic Acid Calcium 6.9 L Phosphorus AST Alkaline Phosphatase NT-Pro-B Natriuret Pep Total Protein Albumin Urine WBC (Auto) Crossmatch 10/09/18 10/10/18 10/10/18 21:11 00:11 05:41 WBC RBC Hgb Hct MCH RDW Plt Count Lymph % (Auto) [place] % (Auto) Lymph # [place] # Baso # Seg Neutrophils % Seg Neuts % (Manual) Lymphocytes % (Manual) Seg Neutrophils # Seg Neutrophils # Man Lymphocytes # (Manual) PT INR APTT Heparin Anti-Xa Level POC ABG pH POC ABG pCO2 POC ABG pO2 Sodium Potassium Chloride Carbon Dioxide BUN Creatinine Glucose POC Glucose 124 H 156 H 42 L Hemoglobin A1c Lactic Acid Calcium Phosphorus AST Alkaline Phosphatase NT-Pro-B Natriuret Pep Total Protein Albumin Urine WBC (Auto) Crossmatch 10/10/18 10/10/18 10/10/18 05:45 07:28 12:07 WBC RBC Hgb Hct MCH RDW Plt Count Lymph % (Auto) [place] % (Auto) Lymph # [place] # Baso # Seg Neutrophils % Seg Neuts % (Manual) Lymphocytes % (Manual) Seg Neutrophils # Seg Neutrophils # Man Lymphocytes # (Manual) PT INR APTT Heparin Anti-Xa Level POC ABG pH POC ABG pCO2 POC ABG pO2 Sodium 146 H D Potassium Chloride 111.2 H Carbon Dioxide BUN 21 H Creatinine 1.8 H Glucose 44 L POC Glucose 114 H 49 L Hemoglobin A1c Lactic Acid Calcium 7.4 L Phosphorus AST Alkaline Phosphatase NT-Pro-B Natriuret Pep Total Protein Albumin Urine WBC (Auto) Crossmatch 10/10/18 10/10/18 10/10/18 12:37 18:02 20:47 WBC RBC Hgb Hct MCH RDW Plt Count Lymph % (Auto) [place] % (Auto) Lymph # [place] # Baso # Seg Neutrophils % Seg Neuts % (Manual) Lymphocytes % (Manual) Seg Neutrophils # Seg Neutrophils # Man Lymphocytes # (Manual) PT INR APTT Heparin Anti-Xa Level POC ABG pH POC ABG pCO2 POC ABG pO2 Sodium Potassium Chloride Carbon Dioxide BUN Creatinine Glucose POC Glucose 142 H 49 L 162 H Hemoglobin A1c Lactic Acid Calcium Phosphorus AST Alkaline Phosphatase NT-Pro-B Natriuret Pep Total Protein Albumin Urine WBC (Auto) Crossmatch 10/10/18 10/10/18 10/10/18 21:45 22:19 23:50 WBC RBC Hgb Hct MCH RDW Plt Count Lymph % (Auto) [place] % (Auto) Lymph # [place] # Baso # Seg Neutrophils % Seg Neuts % (Manual) Lymphocytes % (Manual) Seg Neutrophils # Seg Neutrophils # Man Lymphocytes # (Manual) PT INR APTT Heparin Anti-Xa Level POC ABG pH 7.334 L POC ABG pCO2 47.0 H POC ABG pO2 53 L 79 L Sodium Potassium Chloride Carbon Dioxide BUN Creatinine Glucose POC Glucose 185 H Hemoglobin A1c Lactic Acid Calcium Phosphorus AST Alkaline Phosphatase NT-Pro-B Natriuret Pep Total Protein Albumin Urine WBC (Auto) Crossmatch 10/11/18 10/11/18 10/11/18 05:00 06:41 07:17 WBC RBC Hgb Hct MCH RDW Plt Count Lymph % (Auto) [place] % (Auto) Lymph # [place] # Baso # Seg Neutrophils % Seg Neuts % (Manual) Lymphocytes % (Manual) Seg Neutrophils # Seg Neutrophils # Man Lymphocytes # (Manual) PT INR APTT Heparin Anti-Xa Level POC ABG pH POC ABG pCO2 POC ABG pO2 Sodium Potassium Chloride Carbon Dioxide BUN Creatinine 1.7 H Glucose 43 L POC Glucose 48 L 129 H Hemoglobin A1c Lactic Acid Calcium 7.7 L Phosphorus AST Alkaline Phosphatase NT-Pro-B Natriuret Pep Total Protein Albumin Urine WBC (Auto) Crossmatch 10/11/18 10/11/18 10/11/18 11:14 13:32 14:25 WBC RBC 3.32 L Hgb 8.2 L Hct 26.4 L MCH 25 L RDW 21.6 H Plt Count Lymph % (Auto) [place] % (Auto) Lymph # [place] # Baso # Seg Neutrophils % Seg Neuts % (Manual) Lymphocytes % (Manual) Seg Neutrophils # Seg Neutrophils # Man Lymphocytes # (Manual) PT 21.7 H INR 1.76 H APTT 50.5 H Heparin Anti-Xa Level POC ABG pH POC ABG pCO2 POC ABG pO2 Sodium Potassium Chloride Carbon Dioxide BUN Creatinine Glucose POC Glucose 138 H Hemoglobin A1c Lactic Acid Calcium Phosphorus AST Alkaline Phosphatase NT-Pro-B Natriuret Pep Total Protein Albumin Urine WBC (Auto) Crossmatch 10/11/18 10/11/18 10/11/18 14:25 15:41 17:31 WBC RBC Hgb Hct MCH RDW Plt Count Lymph % (Auto) [place] % (Auto) Lymph # [place] # Baso # Seg Neutrophils % Seg Neuts % (Manual) Lymphocytes % (Manual) Seg Neutrophils # Seg Neutrophils # Man Lymphocytes # (Manual) PT 20.6 H INR 1.65 H APTT 54.9 H Heparin Anti-Xa Level POC ABG pH POC ABG pCO2 POC ABG pO2 53 L Sodium Potassium Chloride Carbon Dioxide BUN Creatinine Glucose POC Glucose 133 H Hemoglobin A1c Lactic Acid Calcium Phosphorus AST Alkaline Phosphatase NT-Pro-B Natriuret Pep Total Protein Albumin Urine WBC (Auto) Crossmatch 10/12/18 10/12/18 10/12/18 00:30 03:56 04:25 WBC RBC Hgb Hct MCH RDW Plt Count Lymph % (Auto) [place] % (Auto) Lymph # [place] # Baso # Seg Neutrophils % Seg Neuts % (Manual) Lymphocytes % (Manual) Seg Neutrophils # Seg Neutrophils # Man Lymphocytes # (Manual) PT INR APTT Heparin Anti-Xa Level POC ABG pH 7.514 H POC ABG pCO2 31.2 L POC ABG pO2 Sodium Potassium Chloride Carbon Dioxide BUN Creatinine 1.6 H Glucose 287 H POC Glucose 353 H Hemoglobin A1c Lactic Acid Calcium 8.0 L Phosphorus AST Alkaline Phosphatase NT-Pro-B Natriuret Pep Total Protein Albumin Urine WBC (Auto) Crossmatch 10/12/18 10/12/18 10/12/18 04:49 12:13 17:53 WBC RBC Hgb Hct MCH RDW Plt Count Lymph % (Auto) [place] % (Auto) Lymph # [place] # Baso # Seg Neutrophils % Seg Neuts % (Manual) Lymphocytes % (Manual) Seg Neutrophils # Seg Neutrophils # Man Lymphocytes # (Manual) PT INR APTT Heparin Anti-Xa Level POC ABG pH POC ABG pCO2 POC ABG pO2 Sodium Potassium Chloride Carbon Dioxide BUN Creatinine Glucose POC Glucose 297 H 290 H 211 H Hemoglobin A1c Lactic Acid Calcium Phosphorus AST Alkaline Phosphatase NT-Pro-B Natriuret Pep Total Protein Albumin Urine WBC (Auto) Crossmatch 10/12/18 10/12/18 10/13/18 18:57 21:35 04:50 WBC 11.8 H RBC 3.08 L Hgb 7.4 L Hct 24.2 L MCH 24 L RDW 21.5 H Plt Count Lymph % (Auto) [place] % (Auto) Lymph # [place] # Baso # Seg Neutrophils % Seg Neuts % (Manual) Lymphocytes % (Manual) Seg Neutrophils # Seg Neutrophils # Man Lymphocytes # (Manual) PT INR APTT Heparin Anti-Xa Level 1.74 H POC ABG pH 7.497 H POC ABG pCO2 33.2 L POC ABG pO2 71 L Sodium Potassium Chloride Carbon Dioxide BUN Creatinine Glucose POC Glucose Hemoglobin A1c Lactic Acid Calcium Phosphorus AST Alkaline Phosphatase NT-Pro-B Natriuret Pep Total Protein Albumin Urine WBC (Auto) Crossmatch 10/13/18 10/13/18 10/13/18 05:25 05:25 05:37 WBC 12.1 H RBC 3.02 L Hgb 7.4 L Hct 23.7 L MCH 25 L RDW 21.0 H Plt Count Lymph % (Auto) 9.6 L [place] % (Auto) 10.0 H Lymph # [place] # 1.2 H Baso # Seg Neutrophils % 76.2 H Seg Neuts % (Manual) Lymphocytes % (Manual) Seg Neutrophils # 9.2 H Seg Neutrophils # Man Lymphocytes # (Manual) PT INR APTT Heparin Anti-Xa Level POC ABG pH POC ABG pCO2 POC ABG pO2 Sodium Potassium Chloride Carbon Dioxide BUN Creatinine 1.6 H Glucose 175 H POC Glucose 165 H Hemoglobin A1c Lactic Acid Calcium 8.3 L Phosphorus AST Alkaline Phosphatase NT-Pro-B Natriuret Pep Total Protein Albumin Urine WBC (Auto) Crossmatch 10/13/18 10/13/18 10/13/18 06:45 11:12 17:19 WBC RBC Hgb Hct MCH RDW Plt Count Lymph % (Auto) [place] % (Auto) Lymph # [place] # Baso # Seg Neutrophils % Seg Neuts % (Manual) Lymphocytes % (Manual) Seg Neutrophils # Seg Neutrophils # Man Lymphocytes # (Manual) PT 17.4 H INR 1.34 H APTT Heparin Anti-Xa Level POC ABG pH POC ABG pCO2 POC ABG pO2 Sodium Potassium Chloride Carbon Dioxide BUN Creatinine Glucose POC Glucose 223 H 129 H Hemoglobin A1c Lactic Acid Calcium Phosphorus AST Alkaline Phosphatase NT-Pro-B Natriuret Pep Total Protein Albumin Urine WBC (Auto) Crossmatch 10/13/18 10/14/18 10/14/18 23:39 05:01 06:14 WBC RBC Hgb Hct MCH RDW Plt Count Lymph % (Auto) [place] % (Auto) Lymph # [place] # Baso # Seg Neutrophils % Seg Neuts % (Manual) Lymphocytes % (Manual) Seg Neutrophils # Seg Neutrophils # Man Lymphocytes # (Manual) PT INR APTT Heparin Anti-Xa Level POC ABG pH POC ABG pCO2 POC ABG pO2 Sodium Potassium Chloride Carbon Dioxide BUN Creatinine 1.5 H Glucose 264 H POC Glucose 171 H 226 H Hemoglobin A1c Lactic Acid Calcium 8.0 L Phosphorus AST Alkaline Phosphatase NT-Pro-B Natriuret Pep Total Protein Albumin Urine WBC (Auto) Crossmatch 10/14/18 10/14/18 10/14/18 06:14 12:24 19:33 WBC RBC Hgb Hct MCH RDW Plt Count Lymph % (Auto) [place] % (Auto) Lymph # [place] # Baso # Seg Neutrophils % Seg Neuts % (Manual) Lymphocytes % (Manual) Seg Neutrophils # Seg Neutrophils # Man Lymphocytes # (Manual) PT 22.1 H INR 1.80 H APTT Heparin Anti-Xa Level POC ABG pH POC ABG pCO2 POC ABG pO2 Sodium Potassium Chloride Carbon Dioxide BUN Creatinine Glucose POC Glucose 403 H 164 H Hemoglobin A1c Lactic Acid Calcium Phosphorus AST Alkaline Phosphatase NT-Pro-B Natriuret Pep Total Protein Albumin Urine WBC (Auto) Crossmatch 10/15/18 10/15/18 10/15/18 00:29 06:03 07:00 WBC RBC Hgb Hct MCH RDW Plt Count Lymph % (Auto) [place] % (Auto) Lymph # [place] # Baso # Seg Neutrophils % Seg Neuts % (Manual) Lymphocytes % (Manual) Seg Neutrophils # Seg Neutrophils # Man Lymphocytes # (Manual) PT INR APTT Heparin Anti-Xa Level POC ABG pH POC ABG pCO2 POC ABG pO2 Sodium Potassium Chloride Carbon Dioxide BUN 20 H Creatinine 1.7 H Glucose 308 H POC Glucose 237 H 282 H Hemoglobin A1c Lactic Acid Calcium 7.6 L Phosphorus AST Alkaline Phosphatase NT-Pro-B Natriuret Pep Total Protein Albumin Urine WBC (Auto) Crossmatch 10/15/18 10/15/18 10/15/18 07:00 08:03 10:27 WBC RBC Hgb 5.8 L* Hct 18.5 L* MCH RDW Plt Count Lymph % (Auto) [place] % (Auto) Lymph # [place] # Baso # Seg Neutrophils % Seg Neuts % (Manual) Lymphocytes % (Manual) Seg Neutrophils # Seg Neutrophils # Man Lymphocytes # (Manual) PT 46.1 H INR 4.52 H APTT Heparin Anti-Xa Level 0.25 L POC ABG pH POC ABG pCO2 POC ABG pO2 Sodium Potassium Chloride Carbon Dioxide BUN Creatinine Glucose POC Glucose Hemoglobin A1c Lactic Acid Calcium Phosphorus AST Alkaline Phosphatase NT-Pro-B Natriuret Pep Total Protein Albumin Urine WBC (Auto) Crossmatch See Detail 10/15/18 10/15/18 10/16/18 14:03 15:30 10:18 WBC RBC Hgb Hct MCH RDW Plt Count Lymph % (Auto) [place] % (Auto) Lymph # [place] # Baso # Seg Neutrophils % Seg Neuts % (Manual) Lymphocytes % (Manual) Seg Neutrophils # Seg Neutrophils # Man Lymphocytes # (Manual) PT 53.8 H INR 5.48 H* APTT Heparin Anti-Xa Level POC ABG pH POC ABG pCO2 POC ABG pO2 Sodium Potassium Chloride Carbon Dioxide BUN Creatinine Glucose POC Glucose 336 H 259 H Hemoglobin A1c Lactic Acid Calcium Phosphorus AST Alkaline Phosphatase NT-Pro-B Natriuret Pep Total Protein Albumin Urine WBC (Auto) Crossmatch 10/16/18 10/16/18 10/16/18 10:18 10:18 13:03 WBC 14.8 H RBC 3.03 L Hgb 8.2 L Hct 24.9 L D MCH 27 L RDW 19.2 H Plt Count Lymph % (Auto) 5.7 L [place] % (Auto) Lymph # 0.8 L [place] # 1.1 H Baso # 0.2 H Seg Neutrophils % 84.3 H Seg Neuts % (Manual) Lymphocytes % (Manual) Seg Neutrophils # 12.5 H Seg Neutrophils # Man Lymphocytes # (Manual) PT INR APTT Heparin Anti-Xa Level POC ABG pH POC ABG pCO2 POC ABG pO2 Sodium Potassium Chloride Carbon Dioxide 20 L BUN 21 H Creatinine 1.5 H Glucose 326 H POC Glucose 329 H Hemoglobin A1c Lactic Acid Calcium 7.8 L Phosphorus AST Alkaline Phosphatase NT-Pro-B Natriuret Pep Total Protein Albumin Urine WBC (Auto) Crossmatch 10/16/18 10/17/18 10/17/18 13:27 00:35 05:00 WBC RBC Hgb Hct MCH RDW Plt Count Lymph % (Auto) [place] % (Auto) Lymph # [place] # Baso # Seg Neutrophils % Seg Neuts % (Manual) Lymphocytes % (Manual) Seg Neutrophils # Seg Neutrophils # Man Lymphocytes # (Manual) PT 55.4 H 60.2 H INR 5.68 H* 6.30 H* APTT Heparin Anti-Xa Level POC ABG pH POC ABG pCO2 POC ABG pO2 Sodium Potassium Chloride Carbon Dioxide BUN Creatinine Glucose POC Glucose 407 H Hemoglobin A1c Lactic Acid Calcium Phosphorus AST Alkaline Phosphatase NT-Pro-B Natriuret Pep Total Protein Albumin Urine WBC (Auto) Crossmatch 10/17/18 10/17/18 10/17/18 05:00 05:00 05:29 WBC 11.6 H RBC 2.99 L Hgb 8.0 L Hct 24.2 L MCH 27 L RDW 19.2 H Plt Count Lymph % (Auto) [place] % (Auto) Lymph # [place] # Baso # Seg Neutrophils % Seg Neuts % (Manual) 87.0 H Lymphocytes % (Manual) 9.0 L Seg Neutrophils # Seg Neutrophils # Man 10.1 H Lymphocytes # (Manual) 1.0 L PT INR APTT Heparin Anti-Xa Level POC ABG pH POC ABG pCO2 POC ABG pO2 Sodium Potassium 3.4 L D Chloride Carbon Dioxide BUN Creatinine 1.4 H Glucose 170 H POC Glucose 156 H Hemoglobin A1c Lactic Acid Calcium 7.6 L Phosphorus AST Alkaline Phosphatase NT-Pro-B Natriuret Pep Total Protein 5.4 L Albumin 2.2 L Urine WBC (Auto) Crossmatch 10/17/18 10/17/18 10/18/18 11:59 17:06 00:21 WBC RBC Hgb Hct MCH RDW Plt Count Lymph % (Auto) [place] % (Auto) Lymph # [place] # Baso # Seg Neutrophils % Seg Neuts % (Manual) Lymphocytes % (Manual) Seg Neutrophils # Seg Neutrophils # Man Lymphocytes # (Manual) PT INR APTT Heparin Anti-Xa Level POC ABG pH POC ABG pCO2 POC ABG pO2 Sodium Potassium Chloride Carbon Dioxide BUN Creatinine Glucose POC Glucose 389 H 151 H 355 H Hemoglobin A1c Lactic Acid Calcium Phosphorus AST Alkaline Phosphatase NT-Pro-B Natriuret Pep Total Protein Albumin Urine WBC (Auto) Crossmatch 10/18/18 10/18/18 10/18/18 04:17 04:17 04:17 WBC RBC 3.01 L Hgb 8.1 L Hct 24.6 L MCH 27 L RDW 19.7 H Plt Count Lymph % (Auto) 12.7 L [place] % (Auto) Lymph # [place] # Baso # Seg Neutrophils % 76.3 H Seg Neuts % (Manual) Lymphocytes % (Manual) Seg Neutrophils # 8.2 H Seg Neutrophils # Man Lymphocytes # (Manual) PT 39.5 H INR 3.72 H APTT Heparin Anti-Xa Level POC ABG pH POC ABG pCO2 POC ABG pO2 Sodium Potassium 3.5 L Chloride Carbon Dioxide BUN Creatinine 1.5 H Glucose 115 H POC Glucose Hemoglobin A1c Lactic Acid Calcium 7.4 L Phosphorus AST Alkaline Phosphatase NT-Pro-B Natriuret Pep Total Protein Albumin Urine WBC (Auto) Crossmatch 10/18/18 10/18/18 10/18/18 06:45 13:39 17:12 WBC RBC Hgb Hct MCH RDW Plt Count Lymph % (Auto) [place] % (Auto) Lymph # [place] # Baso # Seg Neutrophils % Seg Neuts % (Manual) Lymphocytes % (Manual) Seg Neutrophils # Seg Neutrophils # Man Lymphocytes # (Manual) PT INR APTT Heparin Anti-Xa Level POC ABG pH POC ABG pCO2 POC ABG pO2 Sodium Potassium Chloride Carbon Dioxide BUN Creatinine Glucose POC Glucose 170 H 415 H 377 H Hemoglobin A1c Lactic Acid Calcium Phosphorus AST Alkaline Phosphatase NT-Pro-B Natriuret Pep Total Protein Albumin Urine WBC (Auto) Crossmatch 10/19/18 10/19/18 10/19/18 00:48 05:35 05:52 WBC RBC 2.84 L Hgb 7.7 L Hct 23.2 L MCH 27 L RDW 19.8 H Plt Count Lymph % (Auto) 11.0 L [place] % (Auto) Lymph # 1.1 L [place] # Baso # Seg Neutrophils % 78.5 H Seg Neuts % (Manual) Lymphocytes % (Manual) Seg Neutrophils # 8.1 H Seg Neutrophils # Man Lymphocytes # (Manual) PT INR APTT Heparin Anti-Xa Level POC ABG pH POC ABG pCO2 POC ABG pO2 Sodium Potassium Chloride Carbon Dioxide BUN Creatinine Glucose POC Glucose 308 H 116 H Hemoglobin A1c Lactic Acid Calcium Phosphorus AST Alkaline Phosphatase NT-Pro-B Natriuret Pep Total Protein Albumin Urine WBC (Auto) Crossmatch 10/19/18 10/19/18 10/19/18 05:52 07:12 09:41 WBC RBC Hgb 8.1 L Hct 24.6 L MCH RDW Plt Count Lymph % (Auto) [place] % (Auto) Lymph # [place] # Baso # Seg Neutrophils % Seg Neuts % (Manual) Lymphocytes % (Manual) Seg Neutrophils # Seg Neutrophils # Man Lymphocytes # (Manual) PT 18.1 H INR 1.40 H APTT Heparin Anti-Xa Level POC ABG pH POC ABG pCO2 POC ABG pO2 Sodium Potassium Chloride Carbon Dioxide BUN 21 H Creatinine 1.6 H Glucose 128 H POC Glucose Hemoglobin A1c Lactic Acid Calcium 7.7 L Phosphorus AST Alkaline Phosphatase NT-Pro-B Natriuret Pep Total Protein Albumin Urine WBC (Auto) Crossmatch 10/19/18 10/19/18 10/19/18 09:41 11:46 16:12 WBC RBC Hgb Hct MCH RDW Plt Count Lymph % (Auto) [place] % (Auto) Lymph # [place] # Baso # Seg Neutrophils % Seg Neuts % (Manual) Lymphocytes % (Manual) Seg Neutrophils # Seg Neutrophils # Man Lymphocytes # (Manual) PT 17.7 H INR 1.36 H APTT Heparin Anti-Xa Level POC ABG pH POC ABG pCO2 POC ABG pO2 Sodium Potassium Chloride Carbon Dioxide BUN Creatinine Glucose POC Glucose 212 H 260 H Hemoglobin A1c Lactic Acid Calcium Phosphorus AST Alkaline Phosphatase NT-Pro-B Natriuret Pep Total Protein Albumin Urine WBC (Auto) Crossmatch 10/19/18 10/19/18 10/19/18 19:56 22:09 Unknown WBC RBC Hgb Hct MCH RDW Plt Count Lymph % (Auto) [place] % (Auto) Lymph # [place] # Baso # Seg Neutrophils % Seg Neuts % (Manual) Lymphocytes % (Manual) Seg Neutrophils # Seg Neutrophils # Man Lymphocytes # (Manual) PT INR APTT Heparin Anti-Xa Level 0.19 L POC ABG pH 7.458 H POC ABG pCO2 POC ABG pO2 63 L Sodium Potassium Chloride Carbon Dioxide BUN Creatinine Glucose POC Glucose 216 H Hemoglobin A1c Lactic Acid Calcium Phosphorus AST Alkaline Phosphatase NT-Pro-B Natriuret Pep Total Protein Albumin Urine WBC (Auto) Crossmatch 10/20/18 10/20/18 10/20/18 03:00 03:00 03:00 WBC 14.8 H RBC 2.81 L Hgb 7.5 L Hct 23.1 L MCH 27 L RDW 20.0 H Plt Count Lymph % (Auto) 11.5 L [place] % (Auto) Lymph # [place] # 0.9 H Baso # Seg Neutrophils % 79.7 H Seg Neuts % (Manual) Lymphocytes % (Manual) Seg Neutrophils # 11.8 H Seg Neutrophils # Man Lymphocytes # (Manual) PT 16.9 H INR 1.29 H APTT Heparin Anti-Xa Level 0.24 L POC ABG pH POC ABG pCO2 POC ABG pO2 Sodium Potassium Chloride 97.8 L Carbon Dioxide BUN 20 H Creatinine 1.5 H Glucose 206 H POC Glucose Hemoglobin A1c Lactic Acid Calcium 7.8 L Phosphorus AST Alkaline Phosphatase NT-Pro-B Natriuret Pep Total Protein Albumin Urine WBC (Auto) Crossmatch 10/20/18 10/20/18 10/20/18 06:59 10:20 10:59 WBC RBC Hgb Hct MCH RDW Plt Count Lymph % (Auto) [place] % (Auto) Lymph # [place] # Baso # Seg Neutrophils % Seg Neuts % (Manual) Lymphocytes % (Manual) Seg Neutrophils # Seg Neutrophils # Man Lymphocytes # (Manual) PT 15.5 H INR 1.16 H APTT Heparin Anti-Xa Level < 0.10 L POC ABG pH POC ABG pCO2 POC ABG pO2 Sodium Potassium Chloride Carbon Dioxide BUN Creatinine Glucose POC Glucose 348 H 227 H Hemoglobin A1c Lactic Acid Calcium Phosphorus AST Alkaline Phosphatase NT-Pro-B Natriuret Pep Total Protein Albumin Urine WBC (Auto) Crossmatch 10/20/18 10/20/18 10/21/18 16:15 17:14 00:53 WBC RBC Hgb Hct MCH RDW Plt Count Lymph % (Auto) [place] % (Auto) Lymph # [place] # Baso # Seg Neutrophils % Seg Neuts % (Manual) Lymphocytes % (Manual) Seg Neutrophils # Seg Neutrophils # Man Lymphocytes # (Manual) PT INR APTT Heparin Anti-Xa Level 0.24 L POC ABG pH POC ABG pCO2 POC ABG pO2 Sodium Potassium Chloride Carbon Dioxide BUN Creatinine Glucose POC Glucose 279 H 136 H Hemoglobin A1c Lactic Acid Calcium Phosphorus AST Alkaline Phosphatase NT-Pro-B Natriuret Pep Total Protein Albumin Urine WBC (Auto) Crossmatch 10/21/18 10/21/18 10/21/18 05:45 05:45 05:45 WBC 15.8 H RBC 2.79 L Hgb 7.5 L Hct 22.9 L MCH 27 L RDW 19.8 H Plt Count Lymph % (Auto) 7.2 L [place] % (Auto) Lymph # 1.1 L [place] # Baso # Seg Neutrophils % 85.7 H Seg Neuts % (Manual) Lymphocytes % (Manual) Seg Neutrophils # 13.5 H Seg Neutrophils # Man Lymphocytes # (Manual) PT 16.9 H INR 1.29 H APTT Heparin Anti-Xa Level POC ABG pH POC ABG pCO2 POC ABG pO2 Sodium Potassium Chloride Carbon Dioxide BUN 18 H Creatinine 1.4 H Glucose 339 H POC Glucose Hemoglobin A1c Lactic Acid Calcium 8.3 L Phosphorus AST Alkaline Phosphatase NT-Pro-B Natriuret Pep Total Protein Albumin Urine WBC (Auto) Crossmatch 10/21/18 10/21/18 10/21/18 08:00 10:13 11:00 WBC RBC Hgb Hct MCH RDW Plt Count Lymph % (Auto) [place] % (Auto) Lymph # [place] # Baso # Seg Neutrophils % Seg Neuts % (Manual) Lymphocytes % (Manual) Seg Neutrophils # Seg Neutrophils # Man Lymphocytes # (Manual) PT INR APTT Heparin Anti-Xa Level POC ABG pH POC ABG pCO2 POC ABG pO2 Sodium Potassium Chloride Carbon Dioxide BUN Creatinine Glucose POC Glucose 398 H 295 H Hemoglobin A1c Lactic Acid Calcium Phosphorus AST Alkaline Phosphatase NT-Pro-B Natriuret Pep Total Protein Albumin Urine WBC (Auto) 125.0 H Crossmatch 10/21/18 10/21/18 10/21/18 11:18 17:20 17:52 WBC RBC Hgb Hct MCH RDW Plt Count Lymph % (Auto) [place] % (Auto) Lymph # [place] # Baso # Seg Neutrophils % Seg Neuts % (Manual) Lymphocytes % (Manual) Seg Neutrophils # Seg Neutrophils # Man Lymphocytes # (Manual) PT 17.2 H INR 1.32 H APTT 40.0 H Heparin Anti-Xa Level POC ABG pH POC ABG pCO2 POC ABG pO2 Sodium Potassium Chloride Carbon Dioxide BUN Creatinine Glucose POC Glucose 235 H 271 H Hemoglobin A1c Lactic Acid Calcium Phosphorus AST Alkaline Phosphatase NT-Pro-B Natriuret Pep Total Protein Albumin Urine WBC (Auto) Crossmatch 10/21/18 10/22/18 10/22/18 23:41 00:47 04:39 WBC 16.1 H RBC 2.69 L Hgb 6.7 L 7.3 L Hct 19.8 L* 22.3 L MCH 27 L RDW 20.4 H Plt Count Lymph % (Auto) 6.9 L [place] % (Auto) Lymph # 1.1 L [place] # 1.0 H Baso # Seg Neutrophils % 85.3 H Seg Neuts % (Manual) Lymphocytes % (Manual) Seg Neutrophils # 13.8 H Seg Neutrophils # Man Lymphocytes # (Manual) PT INR APTT Heparin Anti-Xa Level POC ABG pH POC ABG pCO2 POC ABG pO2 Sodium Potassium Chloride Carbon Dioxide BUN Creatinine Glucose POC Glucose 157 H Hemoglobin A1c Lactic Acid Calcium Phosphorus AST Alkaline Phosphatase NT-Pro-B Natriuret Pep Total Protein Albumin Urine WBC (Auto) Crossmatch 05/10/22/18 10/22/18 04:39 04:39 04:39 WBC RBC Hgb Hct MCH RDW Plt Count Lymph % (Auto) [place] % (Auto) Lymph # [place] # Baso # Seg Neutrophils % Seg Neuts % (Manual) Lymphocytes % (Manual) Seg Neutrophils # Seg Neutrophils # Man Lymphocytes # (Manual) PT 20.3 H INR 1.62 H APTT Heparin Anti-Xa Level 0.12 L POC ABG pH POC ABG pCO2 POC ABG pO2 Sodium Potassium Chloride Carbon Dioxide BUN 20 H Creatinine 1.7 H Glucose 255 H POC Glucose Hemoglobin A1c Lactic Acid Calcium 8.1 L Phosphorus AST Alkaline Phosphatase NT-Pro-B Natriuret Pep Total Protein Albumin Urine WBC (Auto) Crossmatch See Detail 10/22/18 10/22/18 10/22/18 05:09 11:20 11:20 WBC RBC Hgb 7.4 L Hct 21.9 L MCH RDW Plt Count 457 H Lymph % (Auto) [place] % (Auto) Lymph # [place] # Baso # Seg Neutrophils % Seg Neuts % (Manual) Lymphocytes % (Manual) Seg Neutrophils # Seg Neutrophils # Man Lymphocytes # (Manual) PT 20.8 H INR 1.67 H APTT 71.0 H* Heparin Anti-Xa Level 0.20 L POC ABG pH POC ABG pCO2 POC ABG pO2 Sodium Potassium Chloride Carbon Dioxide BUN Creatinine Glucose POC Glucose 297 H Hemoglobin A1c Lactic Acid Calcium Phosphorus AST Alkaline Phosphatase NT-Pro-B Natriuret Pep Total Protein Albumin Urine WBC (Auto) Crossmatch 10/22/18 10/22/18 10/22/18 12:09 16:51 17:11 WBC RBC Hgb Hct MCH RDW Plt Count Lymph % (Auto) [place] % (Auto) Lymph # [place] # Baso # Seg Neutrophils % Seg Neuts % (Manual) Lymphocytes % (Manual) Seg Neutrophils # Seg Neutrophils # Man Lymphocytes # (Manual) PT INR APTT Heparin Anti-Xa Level POC ABG pH POC ABG pCO2 POC ABG pO2 Sodium Potassium Chloride Carbon Dioxide BUN Creatinine Glucose 115 H POC Glucose 125 H < 40 L Hemoglobin A1c Lactic Acid Calcium Phosphorus AST Alkaline Phosphatase NT-Pro-B Natriuret Pep Total Protein Albumin Urine WBC (Auto) Crossmatch 10/22/18 17:13 WBC RBC Hgb Hct MCH RDW Plt Count Lymph % (Auto) [place] % (Auto) Lymph # [place] # Baso # Seg Neutrophils % Seg Neuts % (Manual) Lymphocytes % (Manual) Seg Neutrophils # Seg Neutrophils # Man Lymphocytes # (Manual) PT INR APTT Heparin Anti-Xa Level POC ABG pH POC ABG pCO2 POC ABG pO2 Sodium Potassium Chloride Carbon Dioxide BUN Creatinine Glucose POC Glucose 126 H Hemoglobin A1c Lactic Acid Calcium Phosphorus AST Alkaline Phosphatase NT-Pro-B Natriuret Pep Total Protein Albumin Urine WBC (Auto) Crossmatch Allied health notes reviewed: nursing
[2018-10-23] MEDS: HumaLOG SUB-Q SCH ×7 (00:16→18:01)
[2018-10-23 08:14] LABS: Basophils # (Auto) 0.1 K/mm3 (0.0-0.1); Basophils % (Auto) 0.8 % (0.0-1.8); Eosinophils # (Auto) 0.6 K/mm3 (0.0-0.4); Eosinophils % (Auto) 3.8 % (0.0-4.3); Hematocrit 27.6 % (30.3-42.9); Hemoglobin 9.2 gm/dl (10.1-14.3); Lymphocytes # (Auto) 1.2 K/mm3 (1.2-5.4); Lymphocytes % (Auto) 8.1 % (13.4-35.0); Mean Corpuscular HGB Conc 33 % (30-34); Mean Corpuscular Volume 84 fl (79-97); Monocytes % (Auto) 7.3 % (0.0-7.3); Platelet Count 505 K/mm3 (140-440); Red Blood Count 3.29 M/mm3 (3.65-5.03)
[2018-10-23 08:25] LABS: INR 1.75 (0.87-1.13)
[2018-10-23 08:33] LABS: Calcium 8.4 mg/dL (8.4-10.2)
[2018-10-23 08:43] LABS: Red Cell Distribution Width 20.5 % (13.2-15.2)
--- NOTE | 2018-10-23 10:06 | Progress Note ---
Subjective Date of service: 10/23/18 Principal diagnosis: Ac hypoxemic resp failure; Seizures (?hypoglycemic); Ac encephalopathy(T/M) Interval history: no seizures observed and has been more alert... mentation is coming back well at this point Objective - Vital Sign Vital Signs - 12hr 10/22/18 10/23/18 22:43 06:11 Temperature 99.4 F 98.8 F Pulse Rate 89 95 H Respiratory 18 20 Rate Blood Pressure 107/68 134/79 O2 Sat by Pulse 100 98 Oximetry - Laboratory Findings CBC and BMP: 10/23/18 07:21 10/23/18 07:21 Abnormal Lab Findings: Abnormal Labs 10/07/18 10/07/18 10/07/18 02:20 02:43 02:43 WBC RBC Hgb Hct MCH 25 L RDW 21.5 H Plt Count Lymph % (Auto) [place] % (Auto) Lymph # 0.9 L [place] # Eos # Baso # Seg Neutrophils % 78.4 H Seg Neuts % (Manual) Lymphocytes % (Manual) Seg Neutrophils # Seg Neutrophils # Man Lymphocytes # (Manual) PT INR APTT Heparin Anti-Xa Level POC ABG pH POC ABG pCO2 POC ABG pO2 Sodium Potassium Chloride 108.0 H Carbon Dioxide 21 L BUN Creatinine 1.5 H Glucose 115 H POC Glucose 136 H Hemoglobin A1c Lactic Acid Calcium Phosphorus AST 51 H Alkaline Phosphatase 257 H NT-Pro-B Natriuret Pep Total Protein Albumin Urine WBC (Auto) Crossmatch 10/07/18 10/07/18 10/07/18 02:43 04:32 05:12 WBC RBC Hgb Hct MCH RDW Plt Count Lymph % (Auto) [place] % (Auto) Lymph # [place] # Eos # Baso # Seg Neutrophils % Seg Neuts % (Manual) Lymphocytes % (Manual) Seg Neutrophils # Seg Neutrophils # Man Lymphocytes # (Manual) PT 25.4 H INR 2.14 H APTT Heparin Anti-Xa Level POC ABG pH POC ABG pCO2 33.6 L POC ABG pO2 69 L Sodium Potassium Chloride Carbon Dioxide BUN Creatinine Glucose POC Glucose Hemoglobin A1c Lactic Acid 2.40 H* Calcium Phosphorus AST Alkaline Phosphatase NT-Pro-B Natriuret Pep Total Protein Albumin Urine WBC (Auto) Crossmatch 10/07/18 10/07/18 10/07/18 06:28 18:39 20:26 WBC RBC Hgb Hct MCH RDW Plt Count Lymph % (Auto) [place] % (Auto) Lymph # [place] # Eos # Baso # Seg Neutrophils % Seg Neuts % (Manual) Lymphocytes % (Manual) Seg Neutrophils # Seg Neutrophils # Man Lymphocytes # (Manual) PT INR APTT Heparin Anti-Xa Level POC ABG pH POC ABG pCO2 POC ABG pO2 Sodium Potassium Chloride Carbon Dioxide BUN Creatinine Glucose POC Glucose 164 H 440 H > 500 H Hemoglobin A1c Lactic Acid Calcium Phosphorus AST Alkaline Phosphatase NT-Pro-B Natriuret Pep Total Protein Albumin Urine WBC (Auto) Crossmatch 10/07/18 10/07/18 10/07/18 20:28 21:53 22:08 WBC RBC Hgb Hct MCH RDW Plt Count Lymph % (Auto) [place] % (Auto) Lymph # [place] # Eos # Baso # Seg Neutrophils % Seg Neuts % (Manual) Lymphocytes % (Manual) Seg Neutrophils # Seg Neutrophils # Man Lymphocytes # (Manual) PT INR APTT Heparin Anti-Xa Level POC ABG pH POC ABG pCO2 POC ABG pO2 Sodium 136 L D Potassium 6.4 H* D Chloride Carbon Dioxide 10 L D BUN 30 H Creatinine 2.0 H Glucose 544 H* POC Glucose 483 H > 500 H Hemoglobin A1c Lactic Acid Calcium 7.0 L D Phosphorus AST Alkaline Phosphatase NT-Pro-B Natriuret Pep Total Protein Albumin Urine WBC (Auto) Crossmatch 10/07/18 10/07/18 10/07/18 22:08 22:08 22:56 WBC RBC Hgb Hct MCH RDW Plt Count Lymph % (Auto) [place] % (Auto) Lymph # [place] # Eos # Baso # Seg Neutrophils % Seg Neuts % (Manual) Lymphocytes % (Manual) Seg Neutrophils # Seg Neutrophils # Man Lymphocytes # (Manual) PT INR APTT Heparin Anti-Xa Level POC ABG pH POC ABG pCO2 POC ABG pO2 Sodium Potassium Chloride Carbon Dioxide BUN Creatinine Glucose POC Glucose 462 H Hemoglobin A1c 10.2 H Lactic Acid Calcium Phosphorus 7.40 H AST Alkaline Phosphatase NT-Pro-B Natriuret Pep Total Protein Albumin Urine WBC (Auto) Crossmatch 10/07/18 10/08/18 10/08/18 23:39 00:58 02:09 WBC RBC Hgb Hct MCH RDW Plt Count Lymph % (Auto) [place] % (Auto) Lymph # [place] # Eos # Baso # Seg Neutrophils % Seg Neuts % (Manual) Lymphocytes % (Manual) Seg Neutrophils # Seg Neutrophils # Man Lymphocytes # (Manual) PT INR APTT Heparin Anti-Xa Level POC ABG pH POC ABG pCO2 POC ABG pO2 Sodium Potassium Chloride Carbon Dioxide BUN Creatinine Glucose POC Glucose 396 H 375 H 285 H Hemoglobin A1c Lactic Acid Calcium Phosphorus AST Alkaline Phosphatase NT-Pro-B Natriuret Pep Total Protein Albumin Urine WBC (Auto) Crossmatch 10/08/18 10/08/18 10/08/18 03:10 03:33 04:05 WBC RBC Hgb Hct MCH RDW Plt Count Lymph % (Auto) [place] % (Auto) Lymph # [place] # Eos # Baso # Seg Neutrophils % Seg Neuts % (Manual) Lymphocytes % (Manual) Seg Neutrophils # Seg Neutrophils # Man Lymphocytes # (Manual) PT INR APTT Heparin Anti-Xa Level POC ABG pH 7.243 L POC ABG pCO2 33.8 L POC ABG pO2 126 H Sodium Potassium 5.3 H Chloride 110.7 H Carbon Dioxide 14 L BUN 33 H Creatinine 2.2 H Glucose 193 H POC Glucose 251 H Hemoglobin A1c Lactic Acid Calcium 7.0 L Phosphorus AST Alkaline Phosphatase 155 H NT-Pro-B Natriuret Pep Total Protein 5.2 L D Albumin 2.6 L Urine WBC (Auto) Crossmatch 10/08/18 10/08/18 10/08/18 04:05 04:05 04:09 WBC 11.8 H RBC 3.32 L Hgb 8.3 L Hct 27.5 L D MCH 25 L RDW 22.0 H Plt Count Lymph % (Auto) 6.8 L [place] % (Auto) 12.0 H Lymph # 0.8 L [place] # 1.4 H Eos # Baso # Seg Neutrophils % 80.6 H Seg Neuts % (Manual) Lymphocytes % (Manual) Seg Neutrophils # 9.5 H Seg Neutrophils # Man Lymphocytes # (Manual) PT INR APTT Heparin Anti-Xa Level POC ABG pH POC ABG pCO2 POC ABG pO2 Sodium Potassium Chloride Carbon Dioxide BUN Creatinine Glucose POC Glucose 175 H Hemoglobin A1c Lactic Acid 3.70 H* Calcium Phosphorus AST Alkaline Phosphatase NT-Pro-B Natriuret Pep Total Protein Albumin Urine WBC (Auto) Crossmatch 10/08/18 10/08/18 10/08/18 05:07 06:05 07:14 WBC RBC Hgb Hct MCH RDW Plt Count Lymph % (Auto) [place] % (Auto) Lymph # [place] # Eos # Baso # Seg Neutrophils % Seg Neuts % (Manual) Lymphocytes % (Manual) Seg Neutrophils # Seg Neutrophils # Man Lymphocytes # (Manual) PT INR APTT Heparin Anti-Xa Level POC ABG pH POC ABG pCO2 POC ABG pO2 Sodium Potassium Chloride Carbon Dioxide BUN Creatinine Glucose POC Glucose 125 H 122 H 147 H Hemoglobin A1c Lactic Acid Calcium Phosphorus AST Alkaline Phosphatase NT-Pro-B Natriuret Pep Total Protein Albumin Urine WBC (Auto) Crossmatch 10/08/18 10/08/18 10/08/18 07:22 08:09 08:47 WBC RBC Hgb Hct MCH RDW Plt Count Lymph % (Auto) [place] % (Auto) Lymph # [place] # Eos # Baso # Seg Neutrophils % Seg Neuts % (Manual) Lymphocytes % (Manual) Seg Neutrophils # Seg Neutrophils # Man Lymphocytes # (Manual) PT INR APTT Heparin Anti-Xa Level POC ABG pH POC ABG pCO2 POC ABG pO2 Sodium Potassium 5.2 H Chloride 112.4 H Carbon Dioxide 17 L BUN 32 H Creatinine 2.1 H Glucose 148 H POC Glucose 134 H 148 H Hemoglobin A1c Lactic Acid Calcium 6.6 L Phosphorus AST Alkaline Phosphatase NT-Pro-B Natriuret Pep Total Protein Albumin Urine WBC (Auto) Crossmatch 10/08/18 10/08/18 10/08/18 10:21 13:29 14:21 WBC RBC Hgb Hct MCH RDW Plt Count Lymph % (Auto) [place] % (Auto) Lymph # [place] # Eos # Baso # Seg Neutrophils % Seg Neuts % (Manual) Lymphocytes % (Manual) Seg Neutrophils # Seg Neutrophils # Man Lymphocytes # (Manual) PT INR APTT Heparin Anti-Xa Level POC ABG pH POC ABG pCO2 POC ABG pO2 Sodium Potassium Chloride Carbon Dioxide BUN Creatinine Glucose POC Glucose 115 H 109 H 118 H Hemoglobin A1c Lactic Acid Calcium Phosphorus AST Alkaline Phosphatase NT-Pro-B Natriuret Pep Total Protein Albumin Urine WBC (Auto) Crossmatch 10/08/18 10/08/18 10/08/18 15:27 17:00 17:00 WBC 11.3 H RBC 3.21 L Hgb 7.9 L Hct 25.7 L MCH 25 L RDW 21.8 H Plt Count Lymph % (Auto) 8.5 L [place] % (Auto) 7.7 H Lymph # 1.0 L [place] # 0.9 H Eos # Baso # Seg Neutrophils % 82.8 H Seg Neuts % (Manual) Lymphocytes % (Manual) Seg Neutrophils # 9.3 H Seg Neutrophils # Man Lymphocytes # (Manual) PT INR APTT Heparin Anti-Xa Level POC ABG pH POC ABG pCO2 POC ABG pO2 Sodium Potassium Chloride Carbon Dioxide BUN Creatinine Glucose POC Glucose 129 H Hemoglobin A1c Lactic Acid Calcium Phosphorus AST Alkaline Phosphatase NT-Pro-B Natriuret Pep 3097 H Total Protein Albumin Urine WBC (Auto) Crossmatch 10/08/18 10/08/18 10/08/18 17:07 17:12 18:22 WBC RBC Hgb Hct MCH RDW Plt Count Lymph % (Auto) [place] % (Auto) Lymph # [place] # Eos # Baso # Seg Neutrophils % Seg Neuts % (Manual) Lymphocytes % (Manual) Seg Neutrophils # Seg Neutrophils # Man Lymphocytes # (Manual) PT INR APTT Heparin Anti-Xa Level POC ABG pH 7.337 L POC ABG pCO2 32.0 L POC ABG pO2 130 H Sodium Potassium Chloride 115.5 H Carbon Dioxide 17 L BUN 30 H Creatinine 1.9 H Glucose 103 H POC Glucose 119 H Hemoglobin A1c Lactic Acid Calcium 6.9 L Phosphorus AST Alkaline Phosphatase NT-Pro-B Natriuret Pep Total Protein Albumin Urine WBC (Auto) Crossmatch 10/08/18 10/08/18 10/09/18 20:09 20:57 01:10 WBC RBC Hgb Hct MCH RDW Plt Count Lymph % (Auto) [place] % (Auto) Lymph # [place] # Eos # Baso # Seg Neutrophils % Seg Neuts % (Manual) Lymphocytes % (Manual) Seg Neutrophils # Seg Neutrophils # Man Lymphocytes # (Manual) PT INR APTT Heparin Anti-Xa Level POC ABG pH POC ABG pCO2 POC ABG pO2 Sodium Potassium Chloride 114.3 H 113.7 H Carbon Dioxide 15 L 14 L BUN 29 H 29 H Creatinine 2.1 H 2.0 H Glucose 132 H 39 L* POC Glucose 150 H Hemoglobin A1c Lactic Acid Calcium 6.7 L 6.9 L Phosphorus AST Alkaline Phosphatase NT-Pro-B Natriuret Pep Total Protein Albumin Urine WBC (Auto) Crossmatch 10/09/18 10/09/18 10/09/18 01:10 01:43 03:20 WBC RBC Hgb Hct MCH RDW Plt Count Lymph % (Auto) [place] % (Auto) Lymph # [place] # Eos # Baso # Seg Neutrophils % Seg Neuts % (Manual) Lymphocytes % (Manual) Seg Neutrophils # Seg Neutrophils # Man Lymphocytes # (Manual) PT INR APTT Heparin Anti-Xa Level POC ABG pH POC ABG pCO2 POC ABG pO2 Sodium Potassium Chloride Carbon Dioxide BUN Creatinine Glucose POC Glucose < 40 L < 40 L Hemoglobin A1c Lactic Acid Calcium Phosphorus AST Alkaline Phosphatase NT-Pro-B Natriuret Pep 2865 H Total Protein Albumin Urine WBC (Auto) Crossmatch 10/09/18 10/09/18 10/09/18 04:23 05:03 05:25 WBC RBC Hgb Hct MCH RDW Plt Count Lymph % (Auto) [place] % (Auto) Lymph # [place] # Eos # Baso # Seg Neutrophils % Seg Neuts % (Manual) Lymphocytes % (Manual) Seg Neutrophils # Seg Neutrophils # Man Lymphocytes # (Manual) PT INR APTT Heparin Anti-Xa Level POC ABG pH POC ABG pCO2 30.6 L 32.3 L POC ABG pO2 118 H Sodium Potassium Chloride Carbon Dioxide BUN Creatinine Glucose POC Glucose 148 H Hemoglobin A1c Lactic Acid Calcium Phosphorus AST Alkaline Phosphatase NT-Pro-B Natriuret Pep Total Protein Albumin Urine WBC (Auto) Crossmatch 10/09/18 10/09/18 10/09/18 06:00 08:34 09:58 WBC RBC Hgb Hct MCH RDW Plt Count Lymph % (Auto) [place] % (Auto) Lymph # [place] # Eos # Baso # Seg Neutrophils % Seg Neuts % (Manual) Lymphocytes % (Manual) Seg Neutrophils # Seg Neutrophils # Man Lymphocytes # (Manual) PT INR APTT Heparin Anti-Xa Level POC ABG pH POC ABG pCO2 POC ABG pO2 Sodium Potassium Chloride Carbon Dioxide BUN Creatinine Glucose POC Glucose 173 H 196 H 183 H Hemoglobin A1c Lactic Acid Calcium Phosphorus AST Alkaline Phosphatase NT-Pro-B Natriuret Pep Total Protein Albumin Urine WBC (Auto) Crossmatch 10/09/18 10/09/18 10/09/18 12:25 12:46 18:16 WBC RBC Hgb Hct MCH RDW Plt Count Lymph % (Auto) [place] % (Auto) Lymph # [place] # Eos # Baso # Seg Neutrophils % Seg Neuts % (Manual) Lymphocytes % (Manual) Seg Neutrophils # Seg Neutrophils # Man Lymphocytes # (Manual) PT INR APTT Heparin Anti-Xa Level POC ABG pH POC ABG pCO2 POC ABG pO2 Sodium Potassium Chloride 110.3 H Carbon Dioxide 16 L BUN 24 H Creatinine 1.8 H Glucose 207 H POC Glucose 208 H 177 H Hemoglobin A1c Lactic Acid Calcium 6.9 L Phosphorus AST Alkaline Phosphatase NT-Pro-B Natriuret Pep Total Protein Albumin Urine WBC (Auto) Crossmatch 10/09/18 10/10/18 10/10/18 21:11 00:11 05:41 WBC RBC Hgb Hct MCH RDW Plt Count Lymph % (Auto) [place] % (Auto) Lymph # [place] # Eos # Baso # Seg Neutrophils % Seg Neuts % (Manual) Lymphocytes % (Manual) Seg Neutrophils # Seg Neutrophils # Man Lymphocytes # (Manual) PT INR APTT Heparin Anti-Xa Level POC ABG pH POC ABG pCO2 POC ABG pO2 Sodium Potassium Chloride Carbon Dioxide BUN Creatinine Glucose POC Glucose 124 H 156 H 42 L Hemoglobin A1c Lactic Acid Calcium Phosphorus AST Alkaline Phosphatase NT-Pro-B Natriuret Pep Total Protein Albumin Urine WBC (Auto) Crossmatch 10/10/18 10/10/18 10/10/18 05:45 07:28 12:07 WBC RBC Hgb Hct MCH RDW Plt Count Lymph % (Auto) [place] % (Auto) Lymph # [place] # Eos # Baso # Seg Neutrophils % Seg Neuts % (Manual) Lymphocytes % (Manual) Seg Neutrophils # Seg Neutrophils # Man Lymphocytes # (Manual) PT INR APTT Heparin Anti-Xa Level POC ABG pH POC ABG pCO2 POC ABG pO2 Sodium 146 H D Potassium Chloride 111.2 H Carbon Dioxide BUN 21 H Creatinine 1.8 H Glucose 44 L POC Glucose 114 H 49 L Hemoglobin A1c Lactic Acid Calcium 7.4 L Phosphorus AST Alkaline Phosphatase NT-Pro-B Natriuret Pep Total Protein Albumin Urine WBC (Auto) Crossmatch 10/10/18 10/10/18 10/10/18 12:37 18:02 20:47 WBC RBC Hgb Hct MCH RDW Plt Count Lymph % (Auto) [place] % (Auto) Lymph # [place] # Eos # Baso # Seg Neutrophils % Seg Neuts % (Manual) Lymphocytes % (Manual) Seg Neutrophils # Seg Neutrophils # Man Lymphocytes # (Manual) PT INR APTT Heparin Anti-Xa Level POC ABG pH POC ABG pCO2 POC ABG pO2 Sodium Potassium Chloride Carbon Dioxide BUN Creatinine Glucose POC Glucose 142 H 49 L 162 H Hemoglobin A1c Lactic Acid Calcium Phosphorus AST Alkaline Phosphatase NT-Pro-B Natriuret Pep Total Protein Albumin Urine WBC (Auto) Crossmatch 10/10/18 10/10/18 10/10/18 21:45 22:19 23:50 WBC RBC Hgb Hct MCH RDW Plt Count Lymph % (Auto) [place] % (Auto) Lymph # [place] # Eos # Baso # Seg Neutrophils % Seg Neuts % (Manual) Lymphocytes % (Manual) Seg Neutrophils # Seg Neutrophils # Man Lymphocytes # (Manual) PT INR APTT Heparin Anti-Xa Level POC ABG pH 7.334 L POC ABG pCO2 47.0 H POC ABG pO2 53 L 79 L Sodium Potassium Chloride Carbon Dioxide BUN Creatinine Glucose POC Glucose 185 H Hemoglobin A1c Lactic Acid Calcium Phosphorus AST Alkaline Phosphatase NT-Pro-B Natriuret Pep Total Protein Albumin Urine WBC (Auto) Crossmatch 10/11/18 10/11/18 10/11/18 05:00 06:41 07:17 WBC RBC Hgb Hct MCH RDW Plt Count Lymph % (Auto) [place] % (Auto) Lymph # [place] # Eos # Baso # Seg Neutrophils % Seg Neuts % (Manual) Lymphocytes % (Manual) Seg Neutrophils # Seg Neutrophils # Man Lymphocytes # (Manual) PT INR APTT Heparin Anti-Xa Level POC ABG pH POC ABG pCO2 POC ABG pO2 Sodium Potassium Chloride Carbon Dioxide BUN Creatinine 1.7 H Glucose 43 L POC Glucose 48 L 129 H Hemoglobin A1c Lactic Acid Calcium 7.7 L Phosphorus AST Alkaline Phosphatase NT-Pro-B Natriuret Pep Total Protein Albumin Urine WBC (Auto) Crossmatch 10/11/18 10/11/18 10/11/18 11:14 13:32 14:25 WBC RBC 3.32 L Hgb 8.2 L Hct 26.4 L MCH 25 L RDW 21.6 H Plt Count Lymph % (Auto) [place] % (Auto) Lymph # [place] # Eos # Baso # Seg Neutrophils % Seg Neuts % (Manual) Lymphocytes % (Manual) Seg Neutrophils # Seg Neutrophils # Man Lymphocytes # (Manual) PT 21.7 H INR 1.76 H APTT 50.5 H Heparin Anti-Xa Level POC ABG pH POC ABG pCO2 POC ABG pO2 Sodium Potassium Chloride Carbon Dioxide BUN Creatinine Glucose POC Glucose 138 H Hemoglobin A1c Lactic Acid Calcium Phosphorus AST Alkaline Phosphatase NT-Pro-B Natriuret Pep Total Protein Albumin Urine WBC (Auto) Crossmatch 10/11/18 10/11/18 10/11/18 14:25 15:41 17:31 WBC RBC Hgb Hct MCH RDW Plt Count Lymph % (Auto) [place] % (Auto) Lymph # [place] # Eos # Baso # Seg Neutrophils % Seg Neuts % (Manual) Lymphocytes % (Manual) Seg Neutrophils # Seg Neutrophils # Man Lymphocytes # (Manual) PT 20.6 H INR 1.65 H APTT 54.9 H Heparin Anti-Xa Level POC ABG pH POC ABG pCO2 POC ABG pO2 53 L Sodium Potassium Chloride Carbon Dioxide BUN Creatinine Glucose POC Glucose 133 H Hemoglobin A1c Lactic Acid Calcium Phosphorus AST Alkaline Phosphatase NT-Pro-B Natriuret Pep Total Protein Albumin Urine WBC (Auto) Crossmatch 10/12/18 10/12/18 10/12/18 00:30 03:56 04:25 WBC RBC Hgb Hct MCH RDW Plt Count Lymph % (Auto) [place] % (Auto) Lymph # [place] # Eos # Baso # Seg Neutrophils % Seg Neuts % (Manual) Lymphocytes % (Manual) Seg Neutrophils # Seg Neutrophils # Man Lymphocytes # (Manual) PT INR APTT Heparin Anti-Xa Level POC ABG pH 7.514 H POC ABG pCO2 31.2 L POC ABG pO2 Sodium Potassium Chloride Carbon Dioxide BUN Creatinine 1.6 H Glucose 287 H POC Glucose 353 H Hemoglobin A1c Lactic Acid Calcium 8.0 L Phosphorus AST Alkaline Phosphatase NT-Pro-B Natriuret Pep Total Protein Albumin Urine WBC (Auto) Crossmatch 10/12/18 10/12/18 10/12/18 04:49 12:13 17:53 WBC RBC Hgb Hct MCH RDW Plt Count Lymph % (Auto) [place] % (Auto) Lymph # [place] # Eos # Baso # Seg Neutrophils % Seg Neuts % (Manual) Lymphocytes % (Manual) Seg Neutrophils # Seg Neutrophils # Man Lymphocytes # (Manual) PT INR APTT Heparin Anti-Xa Level POC ABG pH POC ABG pCO2 POC ABG pO2 Sodium Potassium Chloride Carbon Dioxide BUN Creatinine Glucose POC Glucose 297 H 290 H 211 H Hemoglobin A1c Lactic Acid Calcium Phosphorus AST Alkaline Phosphatase NT-Pro-B Natriuret Pep Total Protein Albumin Urine WBC (Auto) Crossmatch 10/12/18 10/12/18 10/13/18 18:57 21:35 04:50 WBC 11.8 H RBC 3.08 L Hgb 7.4 L Hct 24.2 L MCH 24 L RDW 21.5 H Plt Count Lymph % (Auto) [place] % (Auto) Lymph # [place] # Eos # Baso # Seg Neutrophils % Seg Neuts % (Manual) Lymphocytes % (Manual) Seg Neutrophils # Seg Neutrophils # Man Lymphocytes # (Manual) PT INR APTT Heparin Anti-Xa Level 1.74 H POC ABG pH 7.497 H POC ABG pCO2 33.2 L POC ABG pO2 71 L Sodium Potassium Chloride Carbon Dioxide BUN Creatinine Glucose POC Glucose Hemoglobin A1c Lactic Acid Calcium Phosphorus AST Alkaline Phosphatase NT-Pro-B Natriuret Pep Total Protein Albumin Urine WBC (Auto) Crossmatch 10/13/18 10/13/18 10/13/18 05:25 05:25 05:37 WBC 12.1 H RBC 3.02 L Hgb 7.4 L Hct 23.7 L MCH 25 L RDW 21.0 H Plt Count Lymph % (Auto) 9.6 L [place] % (Auto) 10.0 H Lymph # [place] # 1.2 H Eos # Baso # Seg Neutrophils % 76.2 H Seg Neuts % (Manual) Lymphocytes % (Manual) Seg Neutrophils # 9.2 H Seg Neutrophils # Man Lymphocytes # (Manual) PT INR APTT Heparin Anti-Xa Level POC ABG pH POC ABG pCO2 POC ABG pO2 Sodium Potassium Chloride Carbon Dioxide BUN Creatinine 1.6 H Glucose 175 H POC Glucose 165 H Hemoglobin A1c Lactic Acid Calcium 8.3 L Phosphorus AST Alkaline Phosphatase NT-Pro-B Natriuret Pep Total Protein Albumin Urine WBC (Auto) Crossmatch 10/13/18 10/13/18 10/13/18 06:45 11:12 17:19 WBC RBC Hgb Hct MCH RDW Plt Count Lymph % (Auto) [place] % (Auto) Lymph # [place] # Eos # Baso # Seg Neutrophils % Seg Neuts % (Manual) Lymphocytes % (Manual) Seg Neutrophils # Seg Neutrophils # Man Lymphocytes # (Manual) PT 17.4 H INR 1.34 H APTT Heparin Anti-Xa Level POC ABG pH POC ABG pCO2 POC ABG pO2 Sodium Potassium Chloride Carbon Dioxide BUN Creatinine Glucose POC Glucose 223 H 129 H Hemoglobin A1c Lactic Acid Calcium Phosphorus AST Alkaline Phosphatase NT-Pro-B Natriuret Pep Total Protein Albumin Urine WBC (Auto) Crossmatch 10/13/18 10/14/18 10/14/18 23:39 05:01 06:14 WBC RBC Hgb Hct MCH RDW Plt Count Lymph % (Auto) [place] % (Auto) Lymph # [place] # Eos # Baso # Seg Neutrophils % Seg Neuts % (Manual) Lymphocytes % (Manual) Seg Neutrophils # Seg Neutrophils # Man Lymphocytes # (Manual) PT INR APTT Heparin Anti-Xa Level POC ABG pH POC ABG pCO2 POC ABG pO2 Sodium Potassium Chloride Carbon Dioxide BUN Creatinine 1.5 H Glucose 264 H POC Glucose 171 H 226 H Hemoglobin A1c Lactic Acid Calcium 8.0 L Phosphorus AST Alkaline Phosphatase NT-Pro-B Natriuret Pep Total Protein Albumin Urine WBC (Auto) Crossmatch 10/14/18 10/14/18 10/14/18 06:14 12:24 19:33 WBC RBC Hgb Hct MCH RDW Plt Count Lymph % (Auto) [place] % (Auto) Lymph # [place] # Eos # Baso # Seg Neutrophils % Seg Neuts % (Manual) Lymphocytes % (Manual) Seg Neutrophils # Seg Neutrophils # Man Lymphocytes # (Manual) PT 22.1 H INR 1.80 H APTT Heparin Anti-Xa Level POC ABG pH POC ABG pCO2 POC ABG pO2 Sodium Potassium Chloride Carbon Dioxide BUN Creatinine Glucose POC Glucose 403 H 164 H Hemoglobin A1c Lactic Acid Calcium Phosphorus AST Alkaline Phosphatase NT-Pro-B Natriuret Pep Total Protein Albumin Urine WBC (Auto) Crossmatch 10/15/18 10/15/18 10/15/18 00:29 06:03 07:00 WBC RBC Hgb Hct MCH RDW Plt Count Lymph % (Auto) [place] % (Auto) Lymph # [place] # Eos # Baso # Seg Neutrophils % Seg Neuts % (Manual) Lymphocytes % (Manual) Seg Neutrophils # Seg Neutrophils # Man Lymphocytes # (Manual) PT INR APTT Heparin Anti-Xa Level POC ABG pH POC ABG pCO2 POC ABG pO2 Sodium Potassium Chloride Carbon Dioxide BUN 20 H Creatinine 1.7 H Glucose 308 H POC Glucose 237 H 282 H Hemoglobin A1c Lactic Acid Calcium 7.6 L Phosphorus AST Alkaline Phosphatase NT-Pro-B Natriuret Pep Total Protein Albumin Urine WBC (Auto) Crossmatch 10/15/18 10/15/18 10/15/18 07:00 08:03 10:27 WBC RBC Hgb 5.8 L* Hct 18.5 L* MCH RDW Plt Count Lymph % (Auto) [place] % (Auto) Lymph # [place] # Eos # Baso # Seg Neutrophils % Seg Neuts % (Manual) Lymphocytes % (Manual) Seg Neutrophils # Seg Neutrophils # Man Lymphocytes # (Manual) PT 46.1 H INR 4.52 H APTT Heparin Anti-Xa Level 0.25 L POC ABG pH POC ABG pCO2 POC ABG pO2 Sodium Potassium Chloride Carbon Dioxide BUN Creatinine Glucose POC Glucose Hemoglobin A1c Lactic Acid Calcium Phosphorus AST Alkaline Phosphatase NT-Pro-B Natriuret Pep Total Protein Albumin Urine WBC (Auto) Crossmatch See Detail 10/15/18 10/15/18 10/16/18 14:03 15:30 10:18 WBC RBC Hgb Hct MCH RDW Plt Count Lymph % (Auto) [place] % (Auto) Lymph # [place] # Eos # Baso # Seg Neutrophils % Seg Neuts % (Manual) Lymphocytes % (Manual) Seg Neutrophils # Seg Neutrophils # Man Lymphocytes # (Manual) PT 53.8 H INR 5.48 H* APTT Heparin Anti-Xa Level POC ABG pH POC ABG pCO2 POC ABG pO2 Sodium Potassium Chloride Carbon Dioxide BUN Creatinine Glucose POC Glucose 336 H 259 H Hemoglobin A1c Lactic Acid Calcium Phosphorus AST Alkaline Phosphatase NT-Pro-B Natriuret Pep Total Protein Albumin Urine WBC (Auto) Crossmatch 10/16/18 10/16/18 10/16/18 10:18 10:18 13:03 WBC 14.8 H RBC 3.03 L Hgb 8.2 L Hct 24.9 L D MCH 27 L RDW 19.2 H Plt Count Lymph % (Auto) 5.7 L [place] % (Auto) Lymph # 0.8 L [place] # 1.1 H Eos # Baso # 0.2 H Seg Neutrophils % 84.3 H Seg Neuts % (Manual) Lymphocytes % (Manual) Seg Neutrophils # 12.5 H Seg Neutrophils # Man Lymphocytes # (Manual) PT INR APTT Heparin Anti-Xa Level POC ABG pH POC ABG pCO2 POC ABG pO2 Sodium Potassium Chloride Carbon Dioxide 20 L BUN 21 H Creatinine 1.5 H Glucose 326 H POC Glucose 329 H Hemoglobin A1c Lactic Acid Calcium 7.8 L Phosphorus AST Alkaline Phosphatase NT-Pro-B Natriuret Pep Total Protein Albumin Urine WBC (Auto) Crossmatch 10/16/18 10/17/18 10/17/18 13:27 00:35 05:00 WBC RBC Hgb Hct MCH RDW Plt Count Lymph % (Auto) [place] % (Auto) Lymph # [place] # Eos # Baso # Seg Neutrophils % Seg Neuts % (Manual) Lymphocytes % (Manual) Seg Neutrophils # Seg Neutrophils # Man Lymphocytes # (Manual) PT 55.4 H 60.2 H INR 5.68 H* 6.30 H* APTT Heparin Anti-Xa Level POC ABG pH POC ABG pCO2 POC ABG pO2 Sodium Potassium Chloride Carbon Dioxide BUN Creatinine Glucose POC Glucose 407 H Hemoglobin A1c Lactic Acid Calcium Phosphorus AST Alkaline Phosphatase NT-Pro-B Natriuret Pep Total Protein Albumin Urine WBC (Auto) Crossmatch 10/17/18 10/17/18 10/17/18 05:00 05:00 05:29 WBC 11.6 H RBC 2.99 L Hgb 8.0 L Hct 24.2 L MCH 27 L RDW 19.2 H Plt Count Lymph % (Auto) [place] % (Auto) Lymph # [place] # Eos # Baso # Seg Neutrophils % Seg Neuts % (Manual) 87.0 H Lymphocytes % (Manual) 9.0 L Seg Neutrophils # Seg Neutrophils # Man 10.1 H Lymphocytes # (Manual) 1.0 L PT INR APTT Heparin Anti-Xa Level POC ABG pH POC ABG pCO2 POC ABG pO2 Sodium Potassium 3.4 L D Chloride Carbon Dioxide BUN Creatinine 1.4 H Glucose 170 H POC Glucose 156 H Hemoglobin A1c Lactic Acid Calcium 7.6 L Phosphorus AST Alkaline Phosphatase NT-Pro-B Natriuret Pep Total Protein 5.4 L Albumin 2.2 L Urine WBC (Auto) Crossmatch 10/17/18 10/17/18 10/18/18 11:59 17:06 00:21 WBC RBC Hgb Hct MCH RDW Plt Count Lymph % (Auto) Wake % (Auto) Lymph # Wake # Eos # Baso # Seg Neutrophils % Seg Neuts % (Manual) Lymphocytes % (Manual) Seg Neutrophils # Seg Neutrophils # Man Lymphocytes # (Manual) PT INR APTT Heparin Anti-Xa Level POC ABG pH POC ABG pCO2 POC ABG pO2 Sodium Potassium Chloride Carbon Dioxide BUN Creatinine Glucose POC Glucose 389 H 151 H 355 H Hemoglobin A1c Lactic Acid Calcium Phosphorus AST Alkaline Phosphatase NT-Pro-B Natriuret Pep Total Protein Albumin Urine WBC (Auto) Crossmatch 05/14/19 05/14/19 05/14/19 04:17 04:17 04:17 WBC RBC 3.01 L Hgb 8.1 L Hct 24.6 L MCH 27 L RDW 19.7 H Plt Count Lymph % (Auto) 12.7 L Wake % (Auto) Lymph # [place] # Eos # Baso # Seg Neutrophils % 76.3 H Seg Neuts % (Manual) Lymphocytes % (Manual) Seg Neutrophils # 8.2 H Seg Neutrophils # Man Lymphocytes # (Manual) PT 39.5 H INR 3.72 H APTT Heparin Anti-Xa Level POC ABG pH POC ABG pCO2 POC ABG pO2 Sodium Potassium 3.5 L Chloride Carbon Dioxide BUN Creatinine 1.5 H Glucose 115 H POC Glucose Hemoglobin A1c Lactic Acid Calcium 7.4 L Phosphorus AST Alkaline Phosphatase NT-Pro-B Natriuret Pep Total Protein Albumin Urine WBC (Auto) Crossmatch 10/18/18 10/18/18 10/18/18 06:45 13:39 17:12 WBC RBC Hgb Hct MCH RDW Plt Count Lymph % (Auto) [place] % (Auto) Lymph # [place] # Eos # Baso # Seg Neutrophils % Seg Neuts % (Manual) Lymphocytes % (Manual) Seg Neutrophils # Seg Neutrophils # Man Lymphocytes # (Manual) PT INR APTT Heparin Anti-Xa Level POC ABG pH POC ABG pCO2 POC ABG pO2 Sodium Potassium Chloride Carbon Dioxide BUN Creatinine Glucose POC Glucose 170 H 415 H 377 H Hemoglobin A1c Lactic Acid Calcium Phosphorus AST Alkaline Phosphatase NT-Pro-B Natriuret Pep Total Protein Albumin Urine WBC (Auto) Crossmatch 10/19/18 10/19/18 10/19/18 00:48 05:35 05:52 WBC RBC 2.84 L Hgb 7.7 L Hct 23.2 L MCH 27 L RDW 19.8 H Plt Count Lymph % (Auto) 11.0 L [place] % (Auto) Lymph # 1.1 L [place] # Eos # Baso # Seg Neutrophils % 78.5 H Seg Neuts % (Manual) Lymphocytes % (Manual) Seg Neutrophils # 8.1 H Seg Neutrophils # Man Lymphocytes # (Manual) PT INR APTT Heparin Anti-Xa Level POC ABG pH POC ABG pCO2 POC ABG pO2 Sodium Potassium Chloride Carbon Dioxide BUN Creatinine Glucose POC Glucose 308 H 116 H Hemoglobin A1c Lactic Acid Calcium Phosphorus AST Alkaline Phosphatase NT-Pro-B Natriuret Pep Total Protein Albumin Urine WBC (Auto) Crossmatch 10/19/18 10/19/18 10/19/18 05:52 07:12 09:41 WBC RBC Hgb 8.1 L Hct 24.6 L MCH RDW Plt Count Lymph % (Auto) [place] % (Auto) Lymph # [place] # Eos # Baso # Seg Neutrophils % Seg Neuts % (Manual) Lymphocytes % (Manual) Seg Neutrophils # Seg Neutrophils # Man Lymphocytes # (Manual) PT 18.1 H INR 1.40 H APTT Heparin Anti-Xa Level POC ABG pH POC ABG pCO2 POC ABG pO2 Sodium Potassium Chloride Carbon Dioxide BUN 21 H Creatinine 1.6 H Glucose 128 H POC Glucose Hemoglobin A1c Lactic Acid Calcium 7.7 L Phosphorus AST Alkaline Phosphatase NT-Pro-B Natriuret Pep Total Protein Albumin Urine WBC (Auto) Crossmatch 10/19/18 10/19/18 10/19/18 09:41 11:46 16:12 WBC RBC Hgb Hct MCH RDW Plt Count Lymph % (Auto) [place] % (Auto) Lymph # [place] # Eos # Baso # Seg Neutrophils % Seg Neuts % (Manual) Lymphocytes % (Manual) Seg Neutrophils # Seg Neutrophils # Man Lymphocytes # (Manual) PT 17.7 H INR 1.36 H APTT Heparin Anti-Xa Level POC ABG pH POC ABG pCO2 POC ABG pO2 Sodium Potassium Chloride Carbon Dioxide BUN Creatinine Glucose POC Glucose 212 H 260 H Hemoglobin A1c Lactic Acid Calcium Phosphorus AST Alkaline Phosphatase NT-Pro-B Natriuret Pep Total Protein Albumin Urine WBC (Auto) Crossmatch 10/19/18 10/19/18 10/19/18 19:56 22:09 Unknown WBC RBC Hgb Hct MCH RDW Plt Count Lymph % (Auto) [place] % (Auto) Lymph # [place] # Eos # Baso # Seg Neutrophils % Seg Neuts % (Manual) Lymphocytes % (Manual) Seg Neutrophils # Seg Neutrophils # Man Lymphocytes # (Manual) PT INR APTT Heparin Anti-Xa Level 0.19 L POC ABG pH 7.458 H POC ABG pCO2 POC ABG pO2 63 L Sodium Potassium Chloride Carbon Dioxide BUN Creatinine Glucose POC Glucose 216 H Hemoglobin A1c Lactic Acid Calcium Phosphorus AST Alkaline Phosphatase NT-Pro-B Natriuret Pep Total Protein Albumin Urine WBC (Auto) Crossmatch 10/20/18 10/20/18 10/20/18 03:00 03:00 03:00 WBC 14.8 H RBC 2.81 L Hgb 7.5 L Hct 23.1 L MCH 27 L RDW 20.0 H Plt Count Lymph % (Auto) 11.5 L [place] % (Auto) Lymph # [place] # 0.9 H Eos # Baso # Seg Neutrophils % 79.7 H Seg Neuts % (Manual) Lymphocytes % (Manual) Seg Neutrophils # 11.8 H Seg Neutrophils # Man Lymphocytes # (Manual) PT 16.9 H INR 1.29 H APTT Heparin Anti-Xa Level 0.24 L POC ABG pH POC ABG pCO2 POC ABG pO2 Sodium Potassium Chloride 97.8 L Carbon Dioxide BUN 20 H Creatinine 1.5 H Glucose 206 H POC Glucose Hemoglobin A1c Lactic Acid Calcium 7.8 L Phosphorus AST Alkaline Phosphatase NT-Pro-B Natriuret Pep Total Protein Albumin Urine WBC (Auto) Crossmatch 10/20/18 10/20/18 10/20/18 06:59 10:20 10:59 WBC RBC Hgb Hct MCH RDW Plt Count Lymph % (Auto) [place] % (Auto) Lymph # [place] # Eos # Baso # Seg Neutrophils % Seg Neuts % (Manual) Lymphocytes % (Manual) Seg Neutrophils # Seg Neutrophils # Man Lymphocytes # (Manual) PT 15.5 H INR 1.16 H APTT Heparin Anti-Xa Level < 0.10 L POC ABG pH POC ABG pCO2 POC ABG pO2 Sodium Potassium Chloride Carbon Dioxide BUN Creatinine Glucose POC Glucose 348 H 227 H Hemoglobin A1c Lactic Acid Calcium Phosphorus AST Alkaline Phosphatase NT-Pro-B Natriuret Pep Total Protein Albumin Urine WBC (Auto) Crossmatch 10/20/18 10/20/18 10/21/18 16:15 17:14 00:53 WBC RBC Hgb Hct MCH RDW Plt Count Lymph % (Auto) [place] % (Auto) Lymph # [place] # Eos # Baso # Seg Neutrophils % Seg Neuts % (Manual) Lymphocytes % (Manual) Seg Neutrophils # Seg Neutrophils # Man Lymphocytes # (Manual) PT INR APTT Heparin Anti-Xa Level 0.24 L POC ABG pH POC ABG pCO2 POC ABG pO2 Sodium Potassium Chloride Carbon Dioxide BUN Creatinine Glucose POC Glucose 279 H 136 H Hemoglobin A1c Lactic Acid Calcium Phosphorus AST Alkaline Phosphatase NT-Pro-B Natriuret Pep Total Protein Albumin Urine WBC (Auto) Crossmatch 10/21/18 10/21/18 10/21/18 05:45 05:45 05:45 WBC 15.8 H RBC 2.79 L Hgb 7.5 L Hct 22.9 L MCH 27 L RDW 19.8 H Plt Count Lymph % (Auto) 7.2 L [place] % (Auto) Lymph # 1.1 L [place] # Eos # Baso # Seg Neutrophils % 85.7 H Seg Neuts % (Manual) Lymphocytes % (Manual) Seg Neutrophils # 13.5 H Seg Neutrophils # Man Lymphocytes # (Manual) PT 16.9 H INR 1.29 H APTT Heparin Anti-Xa Level POC ABG pH POC ABG pCO2 POC ABG pO2 Sodium Potassium Chloride Carbon Dioxide BUN 18 H Creatinine 1.4 H Glucose 339 H POC Glucose Hemoglobin A1c Lactic Acid Calcium 8.3 L Phosphorus AST Alkaline Phosphatase NT-Pro-B Natriuret Pep Total Protein Albumin Urine WBC (Auto) Crossmatch 10/21/18 10/21/18 10/21/18 08:00 10:13 11:00 WBC RBC Hgb Hct MCH RDW Plt Count Lymph % (Auto) [place] % (Auto) Lymph # [place] # Eos # Baso # Seg Neutrophils % Seg Neuts % (Manual) Lymphocytes % (Manual) Seg Neutrophils # Seg Neutrophils # Man Lymphocytes # (Manual) PT INR APTT Heparin Anti-Xa Level POC ABG pH POC ABG pCO2 POC ABG pO2 Sodium Potassium Chloride Carbon Dioxide BUN Creatinine Glucose POC Glucose 398 H 295 H Hemoglobin A1c Lactic Acid Calcium Phosphorus AST Alkaline Phosphatase NT-Pro-B Natriuret Pep Total Protein Albumin Urine WBC (Auto) 125.0 H Crossmatch 10/21/18 10/21/18 10/21/18 11:18 17:20 17:52 WBC RBC Hgb Hct MCH RDW Plt Count Lymph % (Auto) [place] % (Auto) Lymph # [place] # Eos # Baso # Seg Neutrophils % Seg Neuts % (Manual) Lymphocytes % (Manual) Seg Neutrophils # Seg Neutrophils # Man Lymphocytes # (Manual) PT 17.2 H INR 1.32 H APTT 40.0 H Heparin Anti-Xa Level POC ABG pH POC ABG pCO2 POC ABG pO2 Sodium Potassium Chloride Carbon Dioxide BUN Creatinine Glucose POC Glucose 235 H 271 H Hemoglobin A1c Lactic Acid Calcium Phosphorus AST Alkaline Phosphatase NT-Pro-B Natriuret Pep Total Protein Albumin Urine WBC (Auto) Crossmatch 10/21/18 10/22/18 10/22/18 23:41 00:47 04:39 WBC 16.1 H RBC 2.69 L Hgb 6.7 L 7.3 L Hct 19.8 L* 22.3 L MCH 27 L RDW 20.4 H Plt Count Lymph % (Auto) 6.9 L [place] % (Auto) Lymph # 1.1 L [place] # 1.0 H Eos # Baso # Seg Neutrophils % 85.3 H Seg Neuts % (Manual) Lymphocytes % (Manual) Seg Neutrophils # 13.8 H Seg Neutrophils # Man Lymphocytes # (Manual) PT INR APTT Heparin Anti-Xa Level POC ABG pH POC ABG pCO2 POC ABG pO2 Sodium Potassium Chloride Carbon Dioxide BUN Creatinine Glucose POC Glucose 157 H Hemoglobin A1c Lactic Acid Calcium Phosphorus AST Alkaline Phosphatase NT-Pro-B Natriuret Pep Total Protein Albumin Urine WBC (Auto) Crossmatch 10/22/18 10/22/18 10/22/18 04:39 04:39 04:39 WBC RBC Hgb Hct MCH RDW Plt Count Lymph % (Auto) [place] % (Auto) Lymph # [place] # Eos # Baso # Seg Neutrophils % Seg Neuts % (Manual) Lymphocytes % (Manual) Seg Neutrophils # Seg Neutrophils # Man Lymphocytes # (Manual) PT 20.3 H INR 1.62 H APTT Heparin Anti-Xa Level 0.12 L POC ABG pH POC ABG pCO2 POC ABG pO2 Sodium Potassium Chloride Carbon Dioxide BUN 20 H Creatinine 1.7 H Glucose 255 H POC Glucose Hemoglobin A1c Lactic Acid Calcium 8.1 L Phosphorus AST Alkaline Phosphatase NT-Pro-B Natriuret Pep Total Protein Albumin Urine WBC (Auto) Crossmatch See Detail 10/22/18 10/22/18 10/22/18 05:09 11:20 11:20 WBC RBC Hgb 7.4 L Hct 21.9 L MCH RDW Plt Count 457 H Lymph % (Auto) [place] % (Auto) Lymph # [place] # Eos # Baso # Seg Neutrophils % Seg Neuts % (Manual) Lymphocytes % (Manual) Seg Neutrophils # Seg Neutrophils # Man Lymphocytes # (Manual) PT 20.8 H INR 1.67 H APTT 71.0 H* Heparin Anti-Xa Level 0.20 L POC ABG pH POC ABG pCO2 POC ABG pO2 Sodium Potassium Chloride Carbon Dioxide BUN Creatinine Glucose POC Glucose 297 H Hemoglobin A1c Lactic Acid Calcium Phosphorus AST Alkaline Phosphatase NT-Pro-B Natriuret Pep Total Protein Albumin Urine WBC (Auto) Crossmatch 10/22/18 10/22/18 10/22/18 12:09 16:51 17:11 WBC RBC Hgb Hct MCH RDW Plt Count Lymph % (Auto) [place] % (Auto) Lymph # [place] # Eos # Baso # Seg Neutrophils % Seg Neuts % (Manual) Lymphocytes % (Manual) Seg Neutrophils # Seg Neutrophils # Man Lymphocytes # (Manual) PT INR APTT Heparin Anti-Xa Level POC ABG pH POC ABG pCO2 POC ABG pO2 Sodium Potassium Chloride Carbon Dioxide BUN Creatinine Glucose 115 H POC Glucose 125 H < 40 L Hemoglobin A1c Lactic Acid Calcium Phosphorus AST Alkaline Phosphatase NT-Pro-B Natriuret Pep Total Protein Albumin Urine WBC (Auto) Crossmatch 10/22/18 10/23/18 10/23/18 17:13 00:08 06:19 WBC RBC Hgb Hct MCH RDW Plt Count Lymph % (Auto) [place] % (Auto) Lymph # [place] # Eos # Baso # Seg Neutrophils % Seg Neuts % (Manual) Lymphocytes % (Manual) Seg Neutrophils # Seg Neutrophils # Man Lymphocytes # (Manual) PT INR APTT Heparin Anti-Xa Level POC ABG pH POC ABG pCO2 POC ABG pO2 Sodium Potassium Chloride Carbon Dioxide BUN Creatinine Glucose POC Glucose 126 H 192 H 249 H Hemoglobin A1c Lactic Acid Calcium Phosphorus AST Alkaline Phosphatase NT-Pro-B Natriuret Pep Total Protein Albumin Urine WBC (Auto) Crossmatch 10/23/18 10/23/18 10/23/18 07:21 07:21 07:21 WBC 14.4 H RBC 3.29 L Hgb 9.2 L Hct 27.6 L MCH RDW 20.5 H Plt Count 505 H Lymph % (Auto) 8.1 L [place] % (Auto) Lymph # [place] # 1.0 H Eos # 0.6 H Baso # Seg Neutrophils % 80.0 H Seg Neuts % (Manual) Lymphocytes % (Manual) Seg Neutrophils # 11.5 H Seg Neutrophils # Man Lymphocytes # (Manual) PT 21.6 H INR 1.75 H APTT Heparin Anti-Xa Level POC ABG pH POC ABG pCO2 POC ABG pO2 Sodium Potassium Chloride Carbon Dioxide BUN 18 H Creatinine 1.5 H Glucose 308 H POC Glucose Hemoglobin A1c Lactic Acid Calcium Phosphorus AST Alkaline Phosphatase NT-Pro-B Natriuret Pep Total Protein Albumin Urine WBC (Auto) Crossmatch
[2018-10-23] MEDS: LANTUS SUB-Q SCH (10:34)
[2018-10-23] MEDS: PREVACID SOLUTAB FEEDTUBE SCH ×2 (10:38→22:31)
[2018-10-23] MEDS: LASIX PO SCH (10:40)
[2018-10-23] MEDS: LOPRESSOR PO SCH ×2 (10:47→22:31)
[2018-10-23] MEDS: SODIUM CHLORIDE FLUSH SYRINGE 10 ML IV SCH ×2 (10:50→23:14)
--- NOTE | 2018-10-23 14:02 | Progress Note ---
Assessment and Plan Benign findings on endoscopy/colonoscopy.Considering prosthetic MV,will restart iv heparin.Continue Warfarin with INR of 2.5 to 3.5.Labs reviewed,orders noted. 10/23/2018>Patient is receiving iv heparin,await PT/INR to reach therapeutic range,stable cardiac prince. - Patient Problems (1) Acute anemia Current Visit: Yes Status: Acute (2) CAD (coronary artery disease) Current Visit: Yes Status: Chronic (3) Diabetes Current Visit: Yes Status: Chronic (4) H/O mitral valve replacement with mechanical valve Current Visit: Yes Status: Chronic (5) History of GI bleed Current Visit: Yes Status: Chronic (6) Seizures Current Visit: Yes Status: Suspected Subjective Principal diagnosis: Ac hypoxemic resp failure; Seizures (?hypoglycemic); Ac encephalopathy(T/M) Interval history: Patient comfortable,no particular complaints. Objective Vital Signs Temp Pulse Resp BP Pulse Ox 10/23/18 10:47 84 144/81 10/23/18 06:11 98.8 F 95 H 20 134/79 98 10/22/18 22:43 99.4 F 89 18 107/68 100 10/22/18 21:47 94 H 134/86 10/22/18 21:43 99.3 F 94 H 18 134/86 97 10/22/18 14:42 81 121/75 - Physical Examination General: No Apparent Distress HEENT: Positive: PERRL Neck: Positive: neck supple (valve clicks intact.) Cardiac: Positive: Reg Rate and Rhythm, Other (valve clicks intact.) Lungs: Positive: Normal Breath Sounds Neuro: Positive: Grossly Intact Abdomen: Negative: Tender Skin: Negative: Rash Extremities: Absent: edema - Labs and Meds Coagulation 10/23/18 Range/Units 07:21 PT 21.6 H (12.2-14.9) Sec. INR 1.75 H (0.87-1.13) CBC 10/23/18 Range/Units 07:21 WBC 14.4 H (4.5-11.0) K/mm3 RBC 3.29 L (3.65-5.03) M/mm3 Hgb 9.2 L (10.1-14.3) gm/dl Hct 27.6 L (30.3-42.9) % Plt Count 505 H (140-440) K/mm3 Lymph # 1.2 (1.2-5.4) K/mm3 [place] # 1.0 H (0.0-0.8) K/mm3 Eos # 0.6 H (0.0-0.4) K/mm3 Baso # 0.1 (0.0-0.1) K/mm3 Comprehensive Metabolic Panel 10/22/18 10/23/18 Range/Units 17:11 07:21 Sodium 137 (137-145) mmol/L Potassium 4.0 (3.6-5.0) mmol/L Chloride 100.4 (98-107) mmol/L Carbon Dioxide 23 (22-30) mmol/L BUN 18 H (7-17) mg/dL Creatinine 1.5 H (0.7-1.2) mg/dL Glucose 115 H 308 H (65-100) mg/dL Calcium 8.4 (8.4-10.2) mg/dL - Imaging and Cardiology EKG: report reviewed, image reviewed Echo: report reviewed (07/2018: EF 40%, mild to mod LVH, LA and RA dilated, mod TR and SC, mechanical valve in mitral position that appears to be functioning properly. 10/2018: EF 35-40%, mod LVH, abnormal diastolic function, LA severely dilated, mechanical MV appears well seated with normal function, mod pulm HTN. 11/2016 showed EF 40-45%, abnormal diastolic function, trace MR, mild TR, RVSP 36mmHg. ) - EKG Sinus rhythms and dysrhythmias: sinus rhythm Chamber hypertrophy or enlargement: left ventricular hypertro - Allied health notes Allied health notes reviewed: nursing
--- NOTE | 2018-10-23 14:07 | Progress Note ---
Assessment and Plan Assessment and plan: 48 year old woman with history of coronary artery disease, status post cabbage, diabetes, hypertension who was brought to the emergency room for altered mental status. She was found to have hypoglycemia, she was also having convulsions at the time of admission. The patient was intubated, sp dextrose she was put on the ventilator she was found to have pneumonia and CHF flare and started on antibiotics. patient has history of MV replacement and was on anticoagulation. Pneumonia, severe sepsis - Patient was on IV antibiotics and completed on 10/13 per ID Acute hypoxic respiratory failure on MV >96 hrs Was intubated and on mechanical ventilation - patient was extubated on 10/13 -Weaned to room air on 10/19, status epilepticus; Seizures when most likely due to hypoglycemia -Treated with dextrose -, neurology consult appreciated Acute on chronic systolic CHF EF 40%, dilated ventricles -cardiology consult appreciated, sp lasix, now on PO lasix [facility]/hypercoaguable state/coagulopathy due to warfarin INR subtherapeutic, on heparin ggt -very sensitive to warfain and gets supratherapeutic very quickly after a few doses, hematology consulted, cont lower dose warfarin Severe anemia sp-transfusion, Gi workup showed neg egd and c scope, outpatient pill camera recommended 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, treated as type 1, uncontrolled, a1c 10.2 Continue insulins judiciously, brittle DM with episodes of hypoglycemia and hyperglycemia, labile glc Mazin upon ckd stage 3, vasomotor nephropathy and likely ATN from sepsis Nephrology input appreciated, avoid nephrotoxins, neph signed off on 10/15 acute metabolic encephalopathy improving, appears to have some baseline confusion hypernatremia resolved after she received hypotonic ivf Hyperkalemia resolved with insulin and diuretics htn urgency; optimized bp meds Marijuana abuse; was counseled, preventive health counseling, done 17 mins spent dvt ppx- chemical, dispo; to [facility] when INR> 2.5 History Interval history: Review of systems Constitutional: No fevers, no malaise, no joint pains CVS: No chest pain, no pedal edema, sob is resolved GI:no hematemesis, blood in stool or melena, No abdominal pain, no diarrhea, no vomiting, no constipation Respiratory: No cough or wheezing Hospitalist Physical - Physical exam Narrative exam: General.: appears well HEENT: Moist mucous membranes, extraocular muscles intact, no lymphadenopathy Neck: supple Cardiac: S1-S2 heard Lungs: Clear to auscultation Abdomen: soft , nontender, nondistended, bowel sounds positive Extremities: no edema clubbing or cyanosis Skin: no rash or lesions Neurologic: no focal deficit Psych: calm and cooperative - Constitutional Vitals: Temp Pulse Resp BP Pulse Ox 98.8 F 84 20 144/81 98 10/23/18 06:11 10/23/18 10:47 10/23/18 06:11 10/23/18 10:47 10/23/18 06:11 General appearance: Present: other (intubated, eyes open, no purposeful response to commands) Results - Labs CBC & Chem 7: 10/23/18 07:21 10/23/18 07:21 Labs: Laboratory Last Values WBC 14.4 K/mm3 (4.5-11.0) H 10/23/18 07:21 RBC 3.29 M/mm3 (3.65-5.03) L 10/23/18 07:21 Hgb 9.2 gm/dl (10.1-14.3) L 10/23/18 07:21 Hct 27.6 % (30.3-42.9) L 10/23/18 07:21 MCV 84 fl (79-97) 10/23/18 07:21 MCH 28 pg (28-32) 10/23/18 07:21 MCHC 33 % (30-34) 10/23/18 07:21 RDW 20.5 % (13.2-15.2) H 10/23/18 07:21 Plt Count 505 K/mm3 (140-440) H 10/23/18 07:21 Lymph % (Auto) 8.1 % (13.4-35.0) L 10/23/18 07:21 Stevens % (Auto) 7.3 % (0.0-7.3) 10/23/18 07:21 Eos % (Auto) 3.8 % (0.0-4.3) 10/23/18 07:21 Baso % (Auto) 0.8 % (0.0-1.8) 10/23/18 07:21 Lymph # 1.2 K/mm3 (1.2-5.4) 10/23/18 07:21 Stevens # 1.0 K/mm3 (0.0-0.8) H 10/23/18 07:21 Eos # 0.6 K/mm3 (0.0-0.4) H 10/23/18 07:21 Baso # 0.1 K/mm3 (0.0-0.1) 10/23/18 07:21 Add Manual Diff Complete 10/17/18 05:00 Total Counted 100 10/17/18 05:00 Seg Neutrophils % 80.0 % (40.0-70.0) H 10/23/18 07:21 Seg Neuts % (Manual) 87.0 % (40.0-70.0) H 10/17/18 05:00 0 % 10/17/18 05:00 9.0 % (13.4-35.0) L 10/17/18 05:00 Reactive Lymphs % (Man) 0 % 10/17/18 05:00 2.0 % (0.0-7.3) 10/17/18 05:00 2.0 % (0.0-4.3) 10/17/18 05:00 0 % (0.0-1.8) 10/17/18 05:00 0 % 10/17/18 05:00 0 % 10/17/18 05:00 0 % 10/17/18 05:00 0 % 10/17/18 05:00 Nucleated RBC % Not Reportable 10/17/18 05:00 Seg Neutrophils # 11.5 K/mm3 (1.8-7.7) H 10/23/18 07:21 Seg Neutrophils # Man 10.1 K/mm3 (1.8-7.7) H 10/17/18 05:00 Band Neutrophils # 0.0 K/mm3 10/17/18 05:00 1.0 K/mm3 (1.2-5.4) L 10/17/18 05:00 Abs React Lymphs (Man) 0.0 K/mm3 10/17/18 05:00 0.2 K/mm3 (0.0-0.8) 10/17/18 05:00 0.2 K/mm3 (0.0-0.4) 10/17/18 05:00 0.0 K/mm3 (0.0-0.1) 10/17/18 05:00 0.0 K/mm3 10/17/18 05:00 0.0 K/mm3 10/17/18 05:00 0.0 K/mm3 10/17/18 05:00 Blast Cells # 0.0 K/mm3 10/17/18 05:00 WBC Morphology Not Reportable 10/17/18 05:00 Hypersegmented Neuts Not Reportable 10/17/18 05:00 Hyposegmented Neuts Not Reportable 10/17/18 05:00 Hypogranular Neuts Not Reportable 10/17/18 05:00 Not Reportable 10/17/18 05:00 Not Reportable 10/17/18 05:00 Not Reportable 10/17/18 05:00 Not Reportable 10/17/18 05:00 Not Reportable 10/17/18 05:00 Not Reportable 10/17/18 05:00 Consistent w auto 10/17/18 05:00 Not Reportable 10/17/18 05:00 Plt Clumps, EDTA Not Reportable 10/17/18 05:00 Not Reportable 10/17/18 05:00 Not Reportable 10/17/18 05:00 Not Reportable 10/17/18 05:00 Plt Morphology Comment Not Reportable 10/17/18 05:00 RBC Morphology Not Reportable 10/17/18 05:00 Dimorphic RBCs Not Reportable 10/17/18 05:00 Not Reportable 10/17/18 05:00 1+ 10/17/18 05:00 Few 10/17/18 05:00 1+ 10/17/18 05:00 Not Reportable 10/17/18 05:00 Rare 10/17/18 05:00 Not Reportable 10/17/18 05:00 Not Reportable 10/17/18 05:00 Not Reportable 10/17/18 05:00 Not Reportable 10/17/18 05:00 Not Reportable 10/17/18 05:00 Not Reportable 10/17/18 05:00 Not Reportable 10/17/18 05:00 Not Reportable 10/17/18 05:00 Not Reportable 10/17/18 05:00 Not Reportable 10/17/18 05:00 Not Reportable 10/17/18 05:00 Not Reportable 10/17/18 05:00 Not Reportable 10/17/18 05:00 Acanthocytes (Spur) Not Reportable 10/17/18 05:00 Rouleaux Not Reportable 10/17/18 05:00 Not Reportable 10/17/18 05:00 Not Reportable 10/17/18 05:00 Not Reportable 10/17/18 05:00 Not Reportable 10/17/18 05:00 Hem Pathologist Commnt No 10/17/18 05:00 PT 21.6 Sec. (12.2-14.9) H 10/23/18 07:21 INR 1.75 (0.87-1.13) H 10/23/18 07:21 APTT 71.0 Sec. (24.2-36.6) H* 10/22/18 11:20 Heparin Anti-Xa Level 0.39 U.I./ml (0.3-0.7) 10/22/18 19:01 POC ABG pH 7.458 (7.35-7.45) H 10/19/18 19:56 POC ABG pCO2 37.9 (35-45) 10/19/18 19:56 POC ABG pO2 63 (80-105) L 10/19/18 19:56 POC ABG HCO3 26.8 (22-26 mml/L) 10/19/18 19:56 POC ABG Total CO2 28 (23-27mmol/L) 10/19/18 19:56 POC ABG O2 Sat 93 10/19/18 19:56 POC ABG Base Excess 3 ((-2) - (+3)mmol/L) 10/19/18 19:56 2 % 10/19/18 19:56 Sodium 137 mmol/L (137-145) 10/23/18 07:21 Potassium 4.0 mmol/L (3.6-5.0) 10/23/18 07:21 Chloride 100.4 mmol/L (98-107) 10/23/18 07:21 Carbon Dioxide 23 mmol/L (22-30) 10/23/18 07:21 18 mmol/L 10/23/18 07:21 BUN 18 mg/dL (7-17) H 10/23/18 07:21 1.5 mg/dL (0.7-1.2) H 10/23/18 07:21 Estimated GFR 45 ml/min 10/23/18 07:21 12 % 10/23/18 07:21 Glucose 308 mg/dL (65-100) H 10/23/18 07:21 POC Glucose 440 (70-105) H 10/23/18 11:56 10.2 % (4-6) H 10/07/18 22:08 Lactic Acid 1.50 mmol/L (0.7-2.0) 10/08/18 17:09 Calcium 8.4 mg/dL (8.4-10.2) 10/23/18 07:21 Phosphorus 7.40 mg/dL (2.5-4.5) H 10/07/18 22:08 Magnesium 1.70 mg/dL (1.7-2.3) 10/18/18 20:20 0.60 mg/dL (0.1-1.2) 10/17/18 05:00 < 0.2 mg/dL (0-0.2) 10/17/18 05:00 0.4 mg/dL 10/17/18 05:00 AST 14 units/L (5-40) 10/17/18 05:00 ALT 8 units/L (7-56) 10/17/18 05:00 104 units/L (35-129) 10/17/18 05:00 40.0 umol/L (25-60) 10/07/18 02:43 < 0.010 ng/mL (0.00-0.029) 10/07/18 08:59 0.20 mg/dL (0.00-1.30) 10/07/18 14:55 NT-Pro-B Natriuret Pep 2865 pg/mL (0-450) H 10/09/18 03:20 5.4 g/dL (6.3-8.2) L 10/17/18 05:00 2.2 g/dL (3.9-5) L 10/17/18 05:00 0.7 % 10/17/18 05:00 Fay (Yellow) 10/21/18 11:00 Cloudy (Clear) 10/21/18 11:00 5.0 (5.0-7.0) 10/21/18 11:00 Ur Specific [place] 1.022 (1.003-1.030) 10/21/18 11:00 >500 mg/dL (Negative) 10/21/18 11:00 50 mg/dL (Negative) 10/21/18 11:00 Neg mg/dL (Negative) 10/21/18 11:00 Lg (Negative) 10/21/18 11:00 Neg (Negative) 10/21/18 11:00 Neg (Negative) 10/21/18 11:00 < 2.0 mg/dL (<2.0) 10/21/18 11:00 Ur Leukocyte Esterase Mod (Negative) 10/21/18 11:00 125.0 /HPF (0.0-6.0) H 10/21/18 11:00 131.0 /HPF (0.0-6.0) 10/21/18 11:00 U Epithel Cells (Auto) 2.0 /HPF (0-13.0) 10/21/18 11:00 2+ /HPF 10/21/18 11:00 Hyaline Casts 3 /LPF 10/07/18 02:34 Few /HPF 10/07/18 02:34 3+ /HPF 10/21/18 11:00 Presumptive negative 10/07/18 02:34 Presumptive negative 10/07/18 02:34 Ur Barbiturates Screen Presumptive negative 10/07/18 02:34 Ur Phencyclidine Scrn Presumptive negative 10/07/18 02:34 Ur Amphetamines Screen Presumptive negative 10/07/18 02:34 U Benzodiazepines Scrn Presumptive negative 10/07/18 02:34 Presumptive negative 10/07/18 02:34 U Marijuana (THC) Screen Presumptive positive 10/07/18 02:34 Disclamer 10/07/18 02:34 Blood Type O POSITIVE 10/22/18 04:39 Antibody Screen Negative 10/22/18 04:39 Crossmatch See Detail 10/22/18 04:39 Active Medications - Current Medications Current Medications: Generic Name Dose Route Start Last Admin Trade Name Freq PRN Reason Stop Dose Admin Acetaminophen 650 mg 10/07/18 04:59 10/20/18 12:56 Tylenol PO 650 mg Q4H PRN Administration Pain MILD(1-3)/Fever >100.5/RODRIGUEZ Lipase/Protease/Amylase 1 each 10/08/18 10:[address] 10,500 Unit FEEDTUBE PRN PRN For Clogged Feeding Tube Dextrose 50 ml 10/07/18 20:42 10/22/18 16:51 D50w (25gm) Syringe IV 50 ml PRN PRN Administration Hypoglycemia Furosemide 40 mg 10/19/18 11:00 10/23/18 10:40 Lasix PO 40 mg QDAY ULI Administration Hydralazine HCl 10 mg 10/07/18 05:07 10/14/18 08:35 Apresoline IV 10 mg Q4H PRN Administration Blood Pressure Hydrophilic Ointment 1 applic 10/07/18 02:40 Vaseline Lip Therapy TP Q2HR PRN Dry Lips Heparin Sodium/Sodium Chloride 25,000 unit in 500 mls @ 15 mls/hr 10/21/18 18:00 10/22/18 22:23 Heparin/ 0.45% Nacl-25,000 Unit/500 Ml IV 900 units/hr TITRATE ULI 18 mls/hr Administration Protocol 750 UNITS/HR Insulin Glargine 5 units 10/23/18 14:38 Lantus SUB-Q 10/23/18 14:39 ONCE ONE Insulin Glargine 8 units 10/24/18 10:00 Lantus SUB-Q DAILY ULI Insulin Human Lispro 0 unit 10/09/18 00:00 10/23/18 12:02 Humalog SUB-Q 5 unit Q6HR ULI Administration Protocol Insulin Human Lispro 7 unit 10/23/18 16:30 Humalog SUB-Q AC ULI Lansoprazole 30 mg 10/16/18 22:00 10/23/18 10:38 Prevacid Solutab FEEDTUBE 30 mg BID ULI Administration Metoclopramide HCl 10 mg 10/11/18 13:00 10/12/18 19:32 Reglan IV 10 mg Q6HR PRN Administration Nausea And Vomiting Metoprolol Tartrate 50 mg 10/14/18 08:40 10/23/18 10:47 Lopressor PO 50 mg TID ULI Administration Multi-Ingred Cream/Lotion/Oil/Oint 1 applic 10/07/18 02:40 Artificial Tears Ophth Oint OU Q4HR PRN Dry Eye(s) Ondansetron HCl 4 mg 10/07/18 04:59 Zofran IV Q8H PRN N/V unrelieved by Reglan Quetiapine Fumarate 100 mg 10/09/18 22:00 10/22/18 21:47 Seroquel PO 100 mg QHS ULI Administration Simple Syrup 15 ml 10/08/18 10:00 Simple Syrup FEEDTUBE PRN PRN Hypoglycemia Simple Syrup 30 ml 10/08/18 10:00 10/09/18 01:09 Simple Syrup FEEDTUBE 30 ml PRN PRN Administration Hypoglycemia Sodium Bicarbonate 325 mg 10/08/18 10:00 Sodium Bicarbonate FEEDTUBE PRN PRN For Clogged Feeding Tube Sodium Chloride 10 ml 10/07/18 10:00 10/23/18 10:50 Sodium Chloride Flush Syringe 10 Ml IV 10 ml BID ULI Administration Sodium Chloride 10 ml 10/07/18 04:59 10/18/18 07:15 Sodium Chloride Flush Syringe 10 Ml IV 10 ml PRN PRN Administration LINE FLUSH Warfarin Sodium 2 mg 10/21/18 18:00 10/22/18 19:09 Coumadin PO 2 mg DAILY@1700 UIL Administration Protocol Nutrition/Malnutrition Assess - Dietary Evaluation Nutrition/Malnutrition Findings: Nutrition Notes Start: 10/07/18 12:17 Freq: Status: Active Protocol: Document 10/21/18 10:51 CP (Rec: 10/21/18 10:59 CP [id number]) Co-Sign 10/21/18 10:51 LP Nutrition Notes Initial or Follow up Reassessment Current Diagnosis CKD (stage V CKD),Diabetes, Hypertension,Heart Failure Current Diet NPO after midnight Labs/Tests Glu: 339 Pertinent Medications Warfarin Lasix Humalog Height 5 ft 2 in Weight 52.5 kg [place] Body Weight (kg) 50.00 BMI 21.2 Subjective/Other Information Pt screened for DNI. F/U for PO tolerance and diet advancement. Pt is currently NPO after midnight. Provided consistent vitamin K education during time of visit. Percent of energy/protein needs met: 0%/0% Burn Absent Trauma Absent #1 Nutrition Diagnosis Inadequate oral intake Diagnosis Progress(for reassessment Continues documentation) Is patient on ventilator? No Is Patient Ambulatory and/or Out of Bed No REE-([facility]-confined to bed) [phone] Calculation [facility]ations [facility] Additional Notes Pro needs 0.8-1g/k-55g/ day Fluid needs 1ml/kcal Nutrition Intervention Change Diet Order: Continue current or per MD request Goal #1 Diet advancement Follow-Up By: 10/25/18 Additional Comments F/U: diet advancement
[2018-10-23] MEDS ORDERED: LANTUS SUB-Q ONE (14:38)
[2018-10-23] MEDS: COUMADIN PO SCH (17:12)
--- NOTE | 2018-10-23 21:45 | Progress Note ---
Assessment and Plan Patient awake and resting on 2 litres O2. O2 saturation O2 saturation 98%. Patient says feeling better and breathng better. No acute respiratory distress. - Patient Problems (1) Acute respiratory failure with hypoxia Current Visit: Yes Status: Acute Plan to address problem: O2 2 litres via nasal canula. Albuterol/atrovent aerosol treatments q 6 hours. (2) Acute on chronic renal failure Current Visit: Yes Status: Acute Plan to address problem: Management as per nephrology. (3) Altered mental status Current Visit: Yes Status: Resolved Plan to address problem: Management as per primary care. (4) Heart failure with reduced ejection fraction Current Visit: Yes Status: Acute Plan to address problem: Management as per cardiology. (5) Diabetes Current Visit: Yes Status: Chronic Plan to address problem: Management as per primary care. (6) H/O mitral valve replacement with mechanical valve Current Visit: Yes Status: Chronic Plan to address problem: Management as per cardiology. Subjective Date of service: 10/23/18 Principal diagnosis: Ac hypoxemic resp failure; Seizures (?hypoglycemic); Ac encephalopathy(T/M) Interval history: Patient awake and resting on 2 litres O2. O2 saturation O2 saturation 98%. Patient says feeling better and breathng better. No acute respiratory distress. Objective Vital Signs - 12hr 10/23/18 10:47 Pulse Rate 84 Blood Pressure 144/81 Constitutional: no acute distress, other (middle aged AAF, normocephalic and with mildly increased resp effort at rest) Eyes: non-icteric ENT: oropharynx moist, other (extubated) Neck: supple, no lymphadenopathy, no JVD Effort: mildly labored Ascultation: Bilateral: diminished breath sounds (bases), rales Percussion: Right: dull (base), Bilateral: not dull Cardiovascular: regular rate and rhythm, other (+ metalic valve click) Gastrointestinal: normoactive bowel sounds, soft, non-tender, non-distended, other (No HSM) Integumentary: normal Extremities: no cyanosis, no edema, pulses normal, no ischemia or petechiae Neurologic: non-focal exam (grossly), pupils equal and round, CN II-XII normal, motor strength normal and, other (somnolent) Psychiatric: other (flat affect) CBC and BMP: 10/23/18 07:21 10/23/18 07:21 ABG, PT/INR, D-dimer: ABG POC ABG pH 7.458 (7.35-7.45) H 10/19/18 19:56 POC ABG pCO2 37.9 (35-45) 10/19/18 19:56 POC ABG pO2 63 (80-105) L 10/19/18 19:56 POC ABG HCO3 26.8 (22-26 mml/L) 10/19/18 19:56 POC ABG Total CO2 28 (23-27mmol/L) 10/19/18 19:56 POC ABG O2 Sat 93 10/19/18 19:56 PT/INR, D-dimer PT 21.6 Sec. (12.2-14.9) H 10/23/18 07:21 INR 1.75 (0.87-1.13) H 10/23/18 07:21 Abnormal lab findings: Abnormal Labs 10/07/18 10/07/18 10/07/18 02:20 02:43 02:43 WBC RBC Hgb Hct MCH 25 L RDW 21.5 H Plt Count Lymph % (Auto) [place] % (Auto) Lymph # 0.9 L [place] # Eos # Baso # Seg Neutrophils % 78.4 H Seg Neuts % (Manual) Lymphocytes % (Manual) Seg Neutrophils # Seg Neutrophils # Man Lymphocytes # (Manual) PT INR APTT Heparin Anti-Xa Level POC ABG pH POC ABG pCO2 POC ABG pO2 Sodium Potassium Chloride 108.0 H Carbon Dioxide 21 L BUN Creatinine 1.5 H Glucose 115 H POC Glucose 136 H Hemoglobin A1c Lactic Acid Calcium Phosphorus AST 51 H Alkaline Phosphatase 257 H NT-Pro-B Natriuret Pep Total Protein Albumin Urine WBC (Auto) Crossmatch 10/07/18 10/07/18 10/07/18 02:43 04:32 05:12 WBC RBC Hgb Hct MCH RDW Plt Count Lymph % (Auto) [place] % (Auto) Lymph # [place] # Eos # Baso # Seg Neutrophils % Seg Neuts % (Manual) Lymphocytes % (Manual) Seg Neutrophils # Seg Neutrophils # Man Lymphocytes # (Manual) PT 25.4 H INR 2.14 H APTT Heparin Anti-Xa Level POC ABG pH POC ABG pCO2 33.6 L POC ABG pO2 69 L Sodium Potassium Chloride Carbon Dioxide BUN Creatinine Glucose POC Glucose Hemoglobin A1c Lactic Acid 2.40 H* Calcium Phosphorus AST Alkaline Phosphatase NT-Pro-B Natriuret Pep Total Protein Albumin Urine WBC (Auto) Crossmatch 10/07/18 10/07/18 10/07/18 06:28 18:39 20:26 WBC RBC Hgb Hct MCH RDW Plt Count Lymph % (Auto) [place] % (Auto) Lymph # [place] # Eos # Baso # Seg Neutrophils % Seg Neuts % (Manual) Lymphocytes % (Manual) Seg Neutrophils # Seg Neutrophils # Man Lymphocytes # (Manual) PT INR APTT Heparin Anti-Xa Level POC ABG pH POC ABG pCO2 POC ABG pO2 Sodium Potassium Chloride Carbon Dioxide BUN Creatinine Glucose POC Glucose 164 H 440 H > 500 H Hemoglobin A1c Lactic Acid Calcium Phosphorus AST Alkaline Phosphatase NT-Pro-B Natriuret Pep Total Protein Albumin Urine WBC (Auto) Crossmatch 10/07/18 10/07/18 10/07/18 20:28 21:53 22:08 WBC RBC Hgb Hct MCH RDW Plt Count Lymph % (Auto) [place] % (Auto) Lymph # [place] # Eos # Baso # Seg Neutrophils % Seg Neuts % (Manual) Lymphocytes % (Manual) Seg Neutrophils # Seg Neutrophils # Man Lymphocytes # (Manual) PT INR APTT Heparin Anti-Xa Level POC ABG pH POC ABG pCO2 POC ABG pO2 Sodium 136 L D Potassium 6.4 H* D Chloride Carbon Dioxide 10 L D BUN 30 H Creatinine 2.0 H Glucose 544 H* POC Glucose 483 H > 500 H Hemoglobin A1c Lactic Acid Calcium 7.0 L D Phosphorus AST Alkaline Phosphatase NT-Pro-B Natriuret Pep Total Protein Albumin Urine WBC (Auto) Crossmatch 10/07/18 10/07/18 10/07/18 22:08 22:08 22:56 WBC RBC Hgb Hct MCH RDW Plt Count Lymph % (Auto) [place] % (Auto) Lymph # [place] # Eos # Baso # Seg Neutrophils % Seg Neuts % (Manual) Lymphocytes % (Manual) Seg Neutrophils # Seg Neutrophils # Man Lymphocytes # (Manual) PT INR APTT Heparin Anti-Xa Level POC ABG pH POC ABG pCO2 POC ABG pO2 Sodium Potassium Chloride Carbon Dioxide BUN Creatinine Glucose POC Glucose 462 H Hemoglobin A1c 10.2 H Lactic Acid Calcium Phosphorus 7.40 H AST Alkaline Phosphatase NT-Pro-B Natriuret Pep Total Protein Albumin Urine WBC (Auto) Crossmatch 10/07/18 10/08/18 10/08/18 23:39 00:58 02:09 WBC RBC Hgb Hct MCH RDW Plt Count Lymph % (Auto) [place] % (Auto) Lymph # [place] # Eos # Baso # Seg Neutrophils % Seg Neuts % (Manual) Lymphocytes % (Manual) Seg Neutrophils # Seg Neutrophils # Man Lymphocytes # (Manual) PT INR APTT Heparin Anti-Xa Level POC ABG pH POC ABG pCO2 POC ABG pO2 Sodium Potassium Chloride Carbon Dioxide BUN Creatinine Glucose POC Glucose 396 H 375 H 285 H Hemoglobin A1c Lactic Acid Calcium Phosphorus AST Alkaline Phosphatase NT-Pro-B Natriuret Pep Total Protein Albumin Urine WBC (Auto) Crossmatch 10/08/18 10/08/18 10/08/18 03:10 03:33 04:05 WBC RBC Hgb Hct MCH RDW Plt Count Lymph % (Auto) [place] % (Auto) Lymph # [place] # Eos # Baso # Seg Neutrophils % Seg Neuts % (Manual) Lymphocytes % (Manual) Seg Neutrophils # Seg Neutrophils # Man Lymphocytes # (Manual) PT INR APTT Heparin Anti-Xa Level POC ABG pH 7.243 L POC ABG pCO2 33.8 L POC ABG pO2 126 H Sodium Potassium 5.3 H Chloride 110.7 H Carbon Dioxide 14 L BUN 33 H Creatinine 2.2 H Glucose 193 H POC Glucose 251 H Hemoglobin A1c Lactic Acid Calcium 7.0 L Phosphorus AST Alkaline Phosphatase 155 H NT-Pro-B Natriuret Pep Total Protein 5.2 L D Albumin 2.6 L Urine WBC (Auto) Crossmatch 10/08/18 10/08/18 10/08/18 04:05 04:05 04:09 WBC 11.8 H RBC 3.32 L Hgb 8.3 L Hct 27.5 L D MCH 25 L RDW 22.0 H Plt Count Lymph % (Auto) 6.8 L [place] % (Auto) 12.0 H Lymph # 0.8 L [place] # 1.4 H Eos # Baso # Seg Neutrophils % 80.6 H Seg Neuts % (Manual) Lymphocytes % (Manual) Seg Neutrophils # 9.5 H Seg Neutrophils # Man Lymphocytes # (Manual) PT INR APTT Heparin Anti-Xa Level POC ABG pH POC ABG pCO2 POC ABG pO2 Sodium Potassium Chloride Carbon Dioxide BUN Creatinine Glucose POC Glucose 175 H Hemoglobin A1c Lactic Acid 3.70 H* Calcium Phosphorus AST Alkaline Phosphatase NT-Pro-B Natriuret Pep Total Protein Albumin Urine WBC (Auto) Crossmatch 10/08/18 10/08/18 10/08/18 05:07 06:05 07:14 WBC RBC Hgb Hct MCH RDW Plt Count Lymph % (Auto) [place] % (Auto) Lymph # [place] # Eos # Baso # Seg Neutrophils % Seg Neuts % (Manual) Lymphocytes % (Manual) Seg Neutrophils # Seg Neutrophils # Man Lymphocytes # (Manual) PT INR APTT Heparin Anti-Xa Level POC ABG pH POC ABG pCO2 POC ABG pO2 Sodium Potassium Chloride Carbon Dioxide BUN Creatinine Glucose POC Glucose 125 H 122 H 147 H Hemoglobin A1c Lactic Acid Calcium Phosphorus AST Alkaline Phosphatase NT-Pro-B Natriuret Pep Total Protein Albumin Urine WBC (Auto) Crossmatch 10/08/18 10/08/18 10/08/18 07:22 08:09 08:47 WBC RBC Hgb Hct MCH RDW Plt Count Lymph % (Auto) [place] % (Auto) Lymph # [place] # Eos # Baso # Seg Neutrophils % Seg Neuts % (Manual) Lymphocytes % (Manual) Seg Neutrophils # Seg Neutrophils # Man Lymphocytes # (Manual) PT INR APTT Heparin Anti-Xa Level POC ABG pH POC ABG pCO2 POC ABG pO2 Sodium Potassium 5.2 H Chloride 112.4 H Carbon Dioxide 17 L BUN 32 H Creatinine 2.1 H Glucose 148 H POC Glucose 134 H 148 H Hemoglobin A1c Lactic Acid Calcium 6.6 L Phosphorus AST Alkaline Phosphatase NT-Pro-B Natriuret Pep Total Protein Albumin Urine WBC (Auto) Crossmatch 10/08/18 10/08/18 10/08/18 10:21 13:29 14:21 WBC RBC Hgb Hct MCH RDW Plt Count Lymph % (Auto) [place] % (Auto) Lymph # [place] # Eos # Baso # Seg Neutrophils % Seg Neuts % (Manual) Lymphocytes % (Manual) Seg Neutrophils # Seg Neutrophils # Man Lymphocytes # (Manual) PT INR APTT Heparin Anti-Xa Level POC ABG pH POC ABG pCO2 POC ABG pO2 Sodium Potassium Chloride Carbon Dioxide BUN Creatinine Glucose POC Glucose 115 H 109 H 118 H Hemoglobin A1c Lactic Acid Calcium Phosphorus AST Alkaline Phosphatase NT-Pro-B Natriuret Pep Total Protein Albumin Urine WBC (Auto) Crossmatch 10/08/18 10/08/18 10/08/18 15:27 17:00 17:00 WBC 11.3 H RBC 3.21 L Hgb 7.9 L Hct 25.7 L MCH 25 L RDW 21.8 H Plt Count Lymph % (Auto) 8.5 L [place] % (Auto) 7.7 H Lymph # 1.0 L [place] # 0.9 H Eos # Baso # Seg Neutrophils % 82.8 H Seg Neuts % (Manual) Lymphocytes % (Manual) Seg Neutrophils # 9.3 H Seg Neutrophils # Man Lymphocytes # (Manual) PT INR APTT Heparin Anti-Xa Level POC ABG pH POC ABG pCO2 POC ABG pO2 Sodium Potassium Chloride Carbon Dioxide BUN Creatinine Glucose POC Glucose 129 H Hemoglobin A1c Lactic Acid Calcium Phosphorus AST Alkaline Phosphatase NT-Pro-B Natriuret Pep 3097 H Total Protein Albumin Urine WBC (Auto) Crossmatch 10/08/18 10/08/18 10/08/18 17:07 17:12 18:22 WBC RBC Hgb Hct MCH RDW Plt Count Lymph % (Auto) [place] % (Auto) Lymph # [place] # Eos # Baso # Seg Neutrophils % Seg Neuts % (Manual) Lymphocytes % (Manual) Seg Neutrophils # Seg Neutrophils # Man Lymphocytes # (Manual) PT INR APTT Heparin Anti-Xa Level POC ABG pH 7.337 L POC ABG pCO2 32.0 L POC ABG pO2 130 H Sodium Potassium Chloride 115.5 H Carbon Dioxide 17 L BUN 30 H Creatinine 1.9 H Glucose 103 H POC Glucose 119 H Hemoglobin A1c Lactic Acid Calcium 6.9 L Phosphorus AST Alkaline Phosphatase NT-Pro-B Natriuret Pep Total Protein Albumin Urine WBC (Auto) Crossmatch 10/08/18 10/08/18 10/09/18 20:09 20:57 01:10 WBC RBC Hgb Hct MCH RDW Plt Count Lymph % (Auto) [place] % (Auto) Lymph # [place] # Eos # Baso # Seg Neutrophils % Seg Neuts % (Manual) Lymphocytes % (Manual) Seg Neutrophils # Seg Neutrophils # Man Lymphocytes # (Manual) PT INR APTT Heparin Anti-Xa Level POC ABG pH POC ABG pCO2 POC ABG pO2 Sodium Potassium Chloride 114.3 H 113.7 H Carbon Dioxide 15 L 14 L BUN 29 H 29 H Creatinine 2.1 H 2.0 H Glucose 132 H 39 L* POC Glucose 150 H Hemoglobin A1c Lactic Acid Calcium 6.7 L 6.9 L Phosphorus AST Alkaline Phosphatase NT-Pro-B Natriuret Pep Total Protein Albumin Urine WBC (Auto) Crossmatch 10/09/18 10/09/18 10/09/18 01:10 01:43 03:20 WBC RBC Hgb Hct MCH RDW Plt Count Lymph % (Auto) [place] % (Auto) Lymph # [place] # Eos # Baso # Seg Neutrophils % Seg Neuts % (Manual) Lymphocytes % (Manual) Seg Neutrophils # Seg Neutrophils # Man Lymphocytes # (Manual) PT INR APTT Heparin Anti-Xa Level POC ABG pH POC ABG pCO2 POC ABG pO2 Sodium Potassium Chloride Carbon Dioxide BUN Creatinine Glucose POC Glucose < 40 L < 40 L Hemoglobin A1c Lactic Acid Calcium Phosphorus AST Alkaline Phosphatase NT-Pro-B Natriuret Pep 2865 H Total Protein Albumin Urine WBC (Auto) Crossmatch 10/09/18 10/09/18 10/09/18 04:23 05:03 05:25 WBC RBC Hgb Hct MCH RDW Plt Count Lymph % (Auto) [place] % (Auto) Lymph # [place] # Eos # Baso # Seg Neutrophils % Seg Neuts % (Manual) Lymphocytes % (Manual) Seg Neutrophils # Seg Neutrophils # Man Lymphocytes # (Manual) PT INR APTT Heparin Anti-Xa Level POC ABG pH POC ABG pCO2 30.6 L 32.3 L POC ABG pO2 118 H Sodium Potassium Chloride Carbon Dioxide BUN Creatinine Glucose POC Glucose 148 H Hemoglobin A1c Lactic Acid Calcium Phosphorus AST Alkaline Phosphatase NT-Pro-B Natriuret Pep Total Protein Albumin Urine WBC (Auto) Crossmatch 10/09/18 10/09/18 10/09/18 06:00 08:34 09:58 WBC RBC Hgb Hct MCH RDW Plt Count Lymph % (Auto) [place] % (Auto) Lymph # [place] # Eos # Baso # Seg Neutrophils % Seg Neuts % (Manual) Lymphocytes % (Manual) Seg Neutrophils # Seg Neutrophils # Man Lymphocytes # (Manual) PT INR APTT Heparin Anti-Xa Level POC ABG pH POC ABG pCO2 POC ABG pO2 Sodium Potassium Chloride Carbon Dioxide BUN Creatinine Glucose POC Glucose 173 H 196 H 183 H Hemoglobin A1c Lactic Acid Calcium Phosphorus AST Alkaline Phosphatase NT-Pro-B Natriuret Pep Total Protein Albumin Urine WBC (Auto) Crossmatch 10/09/18 10/09/18 10/09/18 12:25 12:46 18:16 WBC RBC Hgb Hct MCH RDW Plt Count Lymph % (Auto) [place] % (Auto) Lymph # [place] # Eos # Baso # Seg Neutrophils % Seg Neuts % (Manual) Lymphocytes % (Manual) Seg Neutrophils # Seg Neutrophils # Man Lymphocytes # (Manual) PT INR APTT Heparin Anti-Xa Level POC ABG pH POC ABG pCO2 POC ABG pO2 Sodium Potassium Chloride 110.3 H Carbon Dioxide 16 L BUN 24 H Creatinine 1.8 H Glucose 207 H POC Glucose 208 H 177 H Hemoglobin A1c Lactic Acid Calcium 6.9 L Phosphorus AST Alkaline Phosphatase NT-Pro-B Natriuret Pep Total Protein Albumin Urine WBC (Auto) Crossmatch 10/09/18 10/10/18 10/10/18 21:11 00:11 05:41 WBC RBC Hgb Hct MCH RDW Plt Count Lymph % (Auto) [place] % (Auto) Lymph # [place] # Eos # Baso # Seg Neutrophils % Seg Neuts % (Manual) Lymphocytes % (Manual) Seg Neutrophils # Seg Neutrophils # Man Lymphocytes # (Manual) PT INR APTT Heparin Anti-Xa Level POC ABG pH POC ABG pCO2 POC ABG pO2 Sodium Potassium Chloride Carbon Dioxide BUN Creatinine Glucose POC Glucose 124 H 156 H 42 L Hemoglobin A1c Lactic Acid Calcium Phosphorus AST Alkaline Phosphatase NT-Pro-B Natriuret Pep Total Protein Albumin Urine WBC (Auto) Crossmatch 10/10/18 10/10/18 10/10/18 05:45 07:28 12:07 WBC RBC Hgb Hct MCH RDW Plt Count Lymph % (Auto) [place] % (Auto) Lymph # [place] # Eos # Baso # Seg Neutrophils % Seg Neuts % (Manual) Lymphocytes % (Manual) Seg Neutrophils # Seg Neutrophils # Man Lymphocytes # (Manual) PT INR APTT Heparin Anti-Xa Level POC ABG pH POC ABG pCO2 POC ABG pO2 Sodium 146 H D Potassium Chloride 111.2 H Carbon Dioxide BUN 21 H Creatinine 1.8 H Glucose 44 L POC Glucose 114 H 49 L Hemoglobin A1c Lactic Acid Calcium 7.4 L Phosphorus AST Alkaline Phosphatase NT-Pro-B Natriuret Pep Total Protein Albumin Urine WBC (Auto) Crossmatch 10/10/18 10/10/18 10/10/18 12:37 18:02 20:47 WBC RBC Hgb Hct MCH RDW Plt Count Lymph % (Auto) [place] % (Auto) Lymph # [place] # Eos # Baso # Seg Neutrophils % Seg Neuts % (Manual) Lymphocytes % (Manual) Seg Neutrophils # Seg Neutrophils # Man Lymphocytes # (Manual) PT INR APTT Heparin Anti-Xa Level POC ABG pH POC ABG pCO2 POC ABG pO2 Sodium Potassium Chloride Carbon Dioxide BUN Creatinine Glucose POC Glucose 142 H 49 L 162 H Hemoglobin A1c Lactic Acid Calcium Phosphorus AST Alkaline Phosphatase NT-Pro-B Natriuret Pep Total Protein Albumin Urine WBC (Auto) Crossmatch 10/10/18 10/10/18 10/10/18 21:45 22:19 23:50 WBC RBC Hgb Hct MCH RDW Plt Count Lymph % (Auto) [place] % (Auto) Lymph # [place] # Eos # Baso # Seg Neutrophils % Seg Neuts % (Manual) Lymphocytes % (Manual) Seg Neutrophils # Seg Neutrophils # Man Lymphocytes # (Manual) PT INR APTT Heparin Anti-Xa Level POC ABG pH 7.334 L POC ABG pCO2 47.0 H POC ABG pO2 53 L 79 L Sodium Potassium Chloride Carbon Dioxide BUN Creatinine Glucose POC Glucose 185 H Hemoglobin A1c Lactic Acid Calcium Phosphorus AST Alkaline Phosphatase NT-Pro-B Natriuret Pep Total Protein Albumin Urine WBC (Auto) Crossmatch 10/11/18 10/11/18 10/11/18 05:00 06:41 07:17 WBC RBC Hgb Hct MCH RDW Plt Count Lymph % (Auto) [place] % (Auto) Lymph # [place] # Eos # Baso # Seg Neutrophils % Seg Neuts % (Manual) Lymphocytes % (Manual) Seg Neutrophils # Seg Neutrophils # Man Lymphocytes # (Manual) PT INR APTT Heparin Anti-Xa Level POC ABG pH POC ABG pCO2 POC ABG pO2 Sodium Potassium Chloride Carbon Dioxide BUN Creatinine 1.7 H Glucose 43 L POC Glucose 48 L 129 H Hemoglobin A1c Lactic Acid Calcium 7.7 L Phosphorus AST Alkaline Phosphatase NT-Pro-B Natriuret Pep Total Protein Albumin Urine WBC (Auto) Crossmatch 10/11/18 10/11/18 10/11/18 11:14 13:32 14:25 WBC RBC 3.32 L Hgb 8.2 L Hct 26.4 L MCH 25 L RDW 21.6 H Plt Count Lymph % (Auto) [place] % (Auto) Lymph # [place] # Eos # Baso # Seg Neutrophils % Seg Neuts % (Manual) Lymphocytes % (Manual) Seg Neutrophils # Seg Neutrophils # Man Lymphocytes # (Manual) PT 21.7 H INR 1.76 H APTT 50.5 H Heparin Anti-Xa Level POC ABG pH POC ABG pCO2 POC ABG pO2 Sodium Potassium Chloride Carbon Dioxide BUN Creatinine Glucose POC Glucose 138 H Hemoglobin A1c Lactic Acid Calcium Phosphorus AST Alkaline Phosphatase NT-Pro-B Natriuret Pep Total Protein Albumin Urine WBC (Auto) Crossmatch 10/11/18 10/11/18 10/11/18 14:25 15:41 17:31 WBC RBC Hgb Hct MCH RDW Plt Count Lymph % (Auto) [place] % (Auto) Lymph # [place] # Eos # Baso # Seg Neutrophils % Seg Neuts % (Manual) Lymphocytes % (Manual) Seg Neutrophils # Seg Neutrophils # Man Lymphocytes # (Manual) PT 20.6 H INR 1.65 H APTT 54.9 H Heparin Anti-Xa Level POC ABG pH POC ABG pCO2 POC ABG pO2 53 L Sodium Potassium Chloride Carbon Dioxide BUN Creatinine Glucose POC Glucose 133 H Hemoglobin A1c Lactic Acid Calcium Phosphorus AST Alkaline Phosphatase NT-Pro-B Natriuret Pep Total Protein Albumin Urine WBC (Auto) Crossmatch 10/12/18 10/12/18 10/12/18 00:30 03:56 04:25 WBC RBC Hgb Hct MCH RDW Plt Count Lymph % (Auto) [place] % (Auto) Lymph # [place] # Eos # Baso # Seg Neutrophils % Seg Neuts % (Manual) Lymphocytes % (Manual) Seg Neutrophils # Seg Neutrophils # Man Lymphocytes # (Manual) PT INR APTT Heparin Anti-Xa Level POC ABG pH 7.514 H POC ABG pCO2 31.2 L POC ABG pO2 Sodium Potassium Chloride Carbon Dioxide BUN Creatinine 1.6 H Glucose 287 H POC Glucose 353 H Hemoglobin A1c Lactic Acid Calcium 8.0 L Phosphorus AST Alkaline Phosphatase NT-Pro-B Natriuret Pep Total Protein Albumin Urine WBC (Auto) Crossmatch 10/12/18 10/12/18 10/12/18 04:49 12:13 17:53 WBC RBC Hgb Hct MCH RDW Plt Count Lymph % (Auto) [place] % (Auto) Lymph # [place] # Eos # Baso # Seg Neutrophils % Seg Neuts % (Manual) Lymphocytes % (Manual) Seg Neutrophils # Seg Neutrophils # Man Lymphocytes # (Manual) PT INR APTT Heparin Anti-Xa Level POC ABG pH POC ABG pCO2 POC ABG pO2 Sodium Potassium Chloride Carbon Dioxide BUN Creatinine Glucose POC Glucose 297 H 290 H 211 H Hemoglobin A1c Lactic Acid Calcium Phosphorus AST Alkaline Phosphatase NT-Pro-B Natriuret Pep Total Protein Albumin Urine WBC (Auto) Crossmatch 10/12/18 10/12/18 10/13/18 18:57 21:35 04:50 WBC 11.8 H RBC 3.08 L Hgb 7.4 L Hct 24.2 L MCH 24 L RDW 21.5 H Plt Count Lymph % (Auto) [place] % (Auto) Lymph # [place] # Eos # Baso # Seg Neutrophils % Seg Neuts % (Manual) Lymphocytes % (Manual) Seg Neutrophils # Seg Neutrophils # Man Lymphocytes # (Manual) PT INR APTT Heparin Anti-Xa Level 1.74 H POC ABG pH 7.497 H POC ABG pCO2 33.2 L POC ABG pO2 71 L Sodium Potassium Chloride Carbon Dioxide BUN Creatinine Glucose POC Glucose Hemoglobin A1c Lactic Acid Calcium Phosphorus AST Alkaline Phosphatase NT-Pro-B Natriuret Pep Total Protein Albumin Urine WBC (Auto) Crossmatch 10/13/18 10/13/18 10/13/18 05:25 05:25 05:37 WBC 12.1 H RBC 3.02 L Hgb 7.4 L Hct 23.7 L MCH 25 L RDW 21.0 H Plt Count Lymph % (Auto) 9.6 L [place] % (Auto) 10.0 H Lymph # [place] # 1.2 H Eos # Baso # Seg Neutrophils % 76.2 H Seg Neuts % (Manual) Lymphocytes % (Manual) Seg Neutrophils # 9.2 H Seg Neutrophils # Man Lymphocytes # (Manual) PT INR APTT Heparin Anti-Xa Level POC ABG pH POC ABG pCO2 POC ABG pO2 Sodium Potassium Chloride Carbon Dioxide BUN Creatinine 1.6 H Glucose 175 H POC Glucose 165 H Hemoglobin A1c Lactic Acid Calcium 8.3 L Phosphorus AST Alkaline Phosphatase NT-Pro-B Natriuret Pep Total Protein Albumin Urine WBC (Auto) Crossmatch 10/13/18 10/13/18 10/13/18 06:45 11:12 17:19 WBC RBC Hgb Hct MCH RDW Plt Count Lymph % (Auto) [place] % (Auto) Lymph # [place] # Eos # Baso # Seg Neutrophils % Seg Neuts % (Manual) Lymphocytes % (Manual) Seg Neutrophils # Seg Neutrophils # Man Lymphocytes # (Manual) PT 17.4 H INR 1.34 H APTT Heparin Anti-Xa Level POC ABG pH POC ABG pCO2 POC ABG pO2 Sodium Potassium Chloride Carbon Dioxide BUN Creatinine Glucose POC Glucose 223 H 129 H Hemoglobin A1c Lactic Acid Calcium Phosphorus AST Alkaline Phosphatase NT-Pro-B Natriuret Pep Total Protein Albumin Urine WBC (Auto) Crossmatch 10/13/18 10/14/18 10/14/18 23:39 05:01 06:14 WBC RBC Hgb Hct MCH RDW Plt Count Lymph % (Auto) [place] % (Auto) Lymph # [place] # Eos # Baso # Seg Neutrophils % Seg Neuts % (Manual) Lymphocytes % (Manual) Seg Neutrophils # Seg Neutrophils # Man Lymphocytes # (Manual) PT INR APTT Heparin Anti-Xa Level POC ABG pH POC ABG pCO2 POC ABG pO2 Sodium Potassium Chloride Carbon Dioxide BUN Creatinine 1.5 H Glucose 264 H POC Glucose 171 H 226 H Hemoglobin A1c Lactic Acid Calcium 8.0 L Phosphorus AST Alkaline Phosphatase NT-Pro-B Natriuret Pep Total Protein Albumin Urine WBC (Auto) Crossmatch 10/14/18 10/14/18 10/14/18 06:14 12:24 19:33 WBC RBC Hgb Hct MCH RDW Plt Count Lymph % (Auto) [place] % (Auto) Lymph # [place] # Eos # Baso # Seg Neutrophils % Seg Neuts % (Manual) Lymphocytes % (Manual) Seg Neutrophils # Seg Neutrophils # Man Lymphocytes # (Manual) PT 22.1 H INR 1.80 H APTT Heparin Anti-Xa Level POC ABG pH POC ABG pCO2 POC ABG pO2 Sodium Potassium Chloride Carbon Dioxide BUN Creatinine Glucose POC Glucose 403 H 164 H Hemoglobin A1c Lactic Acid Calcium Phosphorus AST Alkaline Phosphatase NT-Pro-B Natriuret Pep Total Protein Albumin Urine WBC (Auto) Crossmatch 10/15/18 10/15/18 10/15/18 00:29 06:03 07:00 WBC RBC Hgb Hct MCH RDW Plt Count Lymph % (Auto) [place] % (Auto) Lymph # [place] # Eos # Baso # Seg Neutrophils % Seg Neuts % (Manual) Lymphocytes % (Manual) Seg Neutrophils # Seg Neutrophils # Man Lymphocytes # (Manual) PT INR APTT Heparin Anti-Xa Level POC ABG pH POC ABG pCO2 POC ABG pO2 Sodium Potassium Chloride Carbon Dioxide BUN 20 H Creatinine 1.7 H Glucose 308 H POC Glucose 237 H 282 H Hemoglobin A1c Lactic Acid Calcium 7.6 L Phosphorus AST Alkaline Phosphatase NT-Pro-B Natriuret Pep Total Protein Albumin Urine WBC (Auto) Crossmatch 10/15/18 10/15/18 10/15/18 07:00 08:03 10:27 WBC RBC Hgb 5.8 L* Hct 18.5 L* MCH RDW Plt Count Lymph % (Auto) [place] % (Auto) Lymph # [place] # Eos # Baso # Seg Neutrophils % Seg Neuts % (Manual) Lymphocytes % (Manual) Seg Neutrophils # Seg Neutrophils # Man Lymphocytes # (Manual) PT 46.1 H INR 4.52 H APTT Heparin Anti-Xa Level 0.25 L POC ABG pH POC ABG pCO2 POC ABG pO2 Sodium Potassium Chloride Carbon Dioxide BUN Creatinine Glucose POC Glucose Hemoglobin A1c Lactic Acid Calcium Phosphorus AST Alkaline Phosphatase NT-Pro-B Natriuret Pep Total Protein Albumin Urine WBC (Auto) Crossmatch See Detail 10/15/18 10/15/18 10/16/18 14:03 15:30 10:18 WBC RBC Hgb Hct MCH RDW Plt Count Lymph % (Auto) [place] % (Auto) Lymph # [place] # Eos # Baso # Seg Neutrophils % Seg Neuts % (Manual) Lymphocytes % (Manual) Seg Neutrophils # Seg Neutrophils # Man Lymphocytes # (Manual) PT 53.8 H INR 5.48 H* APTT Heparin Anti-Xa Level POC ABG pH POC ABG pCO2 POC ABG pO2 Sodium Potassium Chloride Carbon Dioxide BUN Creatinine Glucose POC Glucose 336 H 259 H Hemoglobin A1c Lactic Acid Calcium Phosphorus AST Alkaline Phosphatase NT-Pro-B Natriuret Pep Total Protein Albumin Urine WBC (Auto) Crossmatch 10/16/18 10/16/18 10/16/18 10:18 10:18 13:03 WBC 14.8 H RBC 3.03 L Hgb 8.2 L Hct 24.9 L D MCH 27 L RDW 19.2 H Plt Count Lymph % (Auto) 5.7 L [place] % (Auto) Lymph # 0.8 L [place] # 1.1 H Eos # Baso # 0.2 H Seg Neutrophils % 84.3 H Seg Neuts % (Manual) Lymphocytes % (Manual) Seg Neutrophils # 12.5 H Seg Neutrophils # Man Lymphocytes # (Manual) PT INR APTT Heparin Anti-Xa Level POC ABG pH POC ABG pCO2 POC ABG pO2 Sodium Potassium Chloride Carbon Dioxide 20 L BUN 21 H Creatinine 1.5 H Glucose 326 H POC Glucose 329 H Hemoglobin A1c Lactic Acid Calcium 7.8 L Phosphorus AST Alkaline Phosphatase NT-Pro-B Natriuret Pep Total Protein Albumin Urine WBC (Auto) Crossmatch 10/16/18 10/17/18 10/17/18 13:27 00:35 05:00 WBC RBC Hgb Hct MCH RDW Plt Count Lymph % (Auto) [place] % (Auto) Lymph # [place] # Eos # Baso # Seg Neutrophils % Seg Neuts % (Manual) Lymphocytes % (Manual) Seg Neutrophils # Seg Neutrophils # Man Lymphocytes # (Manual) PT 55.4 H 60.2 H INR 5.68 H* 6.30 H* APTT Heparin Anti-Xa Level POC ABG pH POC ABG pCO2 POC ABG pO2 Sodium Potassium Chloride Carbon Dioxide BUN Creatinine Glucose POC Glucose 407 H Hemoglobin A1c Lactic Acid Calcium Phosphorus AST Alkaline Phosphatase NT-Pro-B Natriuret Pep Total Protein Albumin Urine WBC (Auto) Crossmatch 10/17/18 10/17/18 10/17/18 05:00 05:00 05:29 WBC 11.6 H RBC 2.99 L Hgb 8.0 L Hct 24.2 L MCH 27 L RDW 19.2 H Plt Count Lymph % (Auto) [place] % (Auto) Lymph # [place] # Eos # Baso # Seg Neutrophils % Seg Neuts % (Manual) 87.0 H Lymphocytes % (Manual) 9.0 L Seg Neutrophils # Seg Neutrophils # Man 10.1 H Lymphocytes # (Manual) 1.0 L PT INR APTT Heparin Anti-Xa Level POC ABG pH POC ABG pCO2 POC ABG pO2 Sodium Potassium 3.4 L D Chloride Carbon Dioxide BUN Creatinine 1.4 H Glucose 170 H POC Glucose 156 H Hemoglobin A1c Lactic Acid Calcium 7.6 L Phosphorus AST Alkaline Phosphatase NT-Pro-B Natriuret Pep Total Protein 5.4 L Albumin 2.2 L Urine WBC (Auto) Crossmatch 10/17/18 10/17/18 10/18/18 11:59 17:06 00:21 WBC RBC Hgb Hct MCH RDW Plt Count Lymph % (Auto) [place] % (Auto) Lymph # [place] # Eos # Baso # Seg Neutrophils % Seg Neuts % (Manual) Lymphocytes % (Manual) Seg Neutrophils # Seg Neutrophils # Man Lymphocytes # (Manual) PT INR APTT Heparin Anti-Xa Level POC ABG pH POC ABG pCO2 POC ABG pO2 Sodium Potassium Chloride Carbon Dioxide BUN Creatinine Glucose POC Glucose 389 H 151 H 355 H Hemoglobin A1c Lactic Acid Calcium Phosphorus AST Alkaline Phosphatase NT-Pro-B Natriuret Pep Total Protein Albumin Urine WBC (Auto) Crossmatch 10/18/18 10/18/18 10/18/18 04:17 04:17 04:17 WBC RBC 3.01 L Hgb 8.1 L Hct 24.6 L MCH 27 L RDW 19.7 H Plt Count Lymph % (Auto) 12.7 L [place] % (Auto) Lymph # [place] # Eos # Baso # Seg Neutrophils % 76.3 H Seg Neuts % (Manual) Lymphocytes % (Manual) Seg Neutrophils # 8.2 H Seg Neutrophils # Man Lymphocytes # (Manual) PT 39.5 H INR 3.72 H APTT Heparin Anti-Xa Level POC ABG pH POC ABG pCO2 POC ABG pO2 Sodium Potassium 3.5 L Chloride Carbon Dioxide BUN Creatinine 1.5 H Glucose 115 H POC Glucose Hemoglobin A1c Lactic Acid Calcium 7.4 L Phosphorus AST Alkaline Phosphatase NT-Pro-B Natriuret Pep Total Protein Albumin Urine WBC (Auto) Crossmatch 10/18/18 10/18/18 10/18/18 06:45 13:39 17:12 WBC RBC Hgb Hct MCH RDW Plt Count Lymph % (Auto) [place] % (Auto) Lymph # [place] # Eos # Baso # Seg Neutrophils % Seg Neuts % (Manual) Lymphocytes % (Manual) Seg Neutrophils # Seg Neutrophils # Man Lymphocytes # (Manual) PT INR APTT Heparin Anti-Xa Level POC ABG pH POC ABG pCO2 POC ABG pO2 Sodium Potassium Chloride Carbon Dioxide BUN Creatinine Glucose POC Glucose 170 H 415 H 377 H Hemoglobin A1c Lactic Acid Calcium Phosphorus AST Alkaline Phosphatase NT-Pro-B Natriuret Pep Total Protein Albumin Urine WBC (Auto) Crossmatch 10/19/18 10/19/18 10/19/18 00:48 05:35 05:52 WBC RBC 2.84 L Hgb 7.7 L Hct 23.2 L MCH 27 L RDW 19.8 H Plt Count Lymph % (Auto) 11.0 L [place] % (Auto) Lymph # 1.1 L [place] # Eos # Baso # Seg Neutrophils % 78.5 H Seg Neuts % (Manual) Lymphocytes % (Manual) Seg Neutrophils # 8.1 H Seg Neutrophils # Man Lymphocytes # (Manual) PT INR APTT Heparin Anti-Xa Level POC ABG pH POC ABG pCO2 POC ABG pO2 Sodium Potassium Chloride Carbon Dioxide BUN Creatinine Glucose POC Glucose 308 H 116 H Hemoglobin A1c Lactic Acid Calcium Phosphorus AST Alkaline Phosphatase NT-Pro-B Natriuret Pep Total Protein Albumin Urine WBC (Auto) Crossmatch 10/19/18 10/19/18 10/19/18 05:52 07:12 09:41 WBC RBC Hgb 8.1 L Hct 24.6 L MCH RDW Plt Count Lymph % (Auto) [place] % (Auto) Lymph # [place] # Eos # Baso # Seg Neutrophils % Seg Neuts % (Manual) Lymphocytes % (Manual) Seg Neutrophils # Seg Neutrophils # Man Lymphocytes # (Manual) PT 18.1 H INR 1.40 H APTT Heparin Anti-Xa Level POC ABG pH POC ABG pCO2 POC ABG pO2 Sodium Potassium Chloride Carbon Dioxide BUN 21 H Creatinine 1.6 H Glucose 128 H POC Glucose Hemoglobin A1c Lactic Acid Calcium 7.7 L Phosphorus AST Alkaline Phosphatase NT-Pro-B Natriuret Pep Total Protein Albumin Urine WBC (Auto) Crossmatch 10/19/18 10/19/18 10/19/18 09:41 11:46 16:12 WBC RBC Hgb Hct MCH RDW Plt Count Lymph % (Auto) [place] % (Auto) Lymph # [place] # Eos # Baso # Seg Neutrophils % Seg Neuts % (Manual) Lymphocytes % (Manual) Seg Neutrophils # Seg Neutrophils # Man Lymphocytes # (Manual) PT 17.7 H INR 1.36 H APTT Heparin Anti-Xa Level POC ABG pH POC ABG pCO2 POC ABG pO2 Sodium Potassium Chloride Carbon Dioxide BUN Creatinine Glucose POC Glucose 212 H 260 H Hemoglobin A1c Lactic Acid Calcium Phosphorus AST Alkaline Phosphatase NT-Pro-B Natriuret Pep Total Protein Albumin Urine WBC (Auto) Crossmatch 10/19/18 10/19/18 10/19/18 19:56 22:09 Unknown WBC RBC Hgb Hct MCH RDW Plt Count Lymph % (Auto) [place] % (Auto) Lymph # [place] # Eos # Baso # Seg Neutrophils % Seg Neuts % (Manual) Lymphocytes % (Manual) Seg Neutrophils # Seg Neutrophils # Man Lymphocytes # (Manual) PT INR APTT Heparin Anti-Xa Level 0.19 L POC ABG pH 7.458 H POC ABG pCO2 POC ABG pO2 63 L Sodium Potassium Chloride Carbon Dioxide BUN Creatinine Glucose POC Glucose 216 H Hemoglobin A1c Lactic Acid Calcium Phosphorus AST Alkaline Phosphatase NT-Pro-B Natriuret Pep Total Protein Albumin Urine WBC (Auto) Crossmatch 10/20/18 10/20/18 10/20/18 03:00 03:00 03:00 WBC 14.8 H RBC 2.81 L Hgb 7.5 L Hct 23.1 L MCH 27 L RDW 20.0 H Plt Count Lymph % (Auto) 11.5 L [place] % (Auto) Lymph # [place] # 0.9 H Eos # Baso # Seg Neutrophils % 79.7 H Seg Neuts % (Manual) Lymphocytes % (Manual) Seg Neutrophils # 11.8 H Seg Neutrophils # Man Lymphocytes # (Manual) PT 16.9 H INR 1.29 H APTT Heparin Anti-Xa Level 0.24 L POC ABG pH POC ABG pCO2 POC ABG pO2 Sodium Potassium Chloride 97.8 L Carbon Dioxide BUN 20 H Creatinine 1.5 H Glucose 206 H POC Glucose Hemoglobin A1c Lactic Acid Calcium 7.8 L Phosphorus AST Alkaline Phosphatase NT-Pro-B Natriuret Pep Total Protein Albumin Urine WBC (Auto) Crossmatch 10/20/18 10/20/18 10/20/18 06:59 10:20 10:59 WBC RBC Hgb Hct MCH RDW Plt Count Lymph % (Auto) [place] % (Auto) Lymph # [place] # Eos # Baso # Seg Neutrophils % Seg Neuts % (Manual) Lymphocytes % (Manual) Seg Neutrophils # Seg Neutrophils # Man Lymphocytes # (Manual) PT 15.5 H INR 1.16 H APTT Heparin Anti-Xa Level < 0.10 L POC ABG pH POC ABG pCO2 POC ABG pO2 Sodium Potassium Chloride Carbon Dioxide BUN Creatinine Glucose POC Glucose 348 H 227 H Hemoglobin A1c Lactic Acid Calcium Phosphorus AST Alkaline Phosphatase NT-Pro-B Natriuret Pep Total Protein Albumin Urine WBC (Auto) Crossmatch 10/20/18 10/20/18 10/21/18 16:15 17:14 00:53 WBC RBC Hgb Hct MCH RDW Plt Count Lymph % (Auto) [place] % (Auto) Lymph # [place] # Eos # Baso # Seg Neutrophils % Seg Neuts % (Manual) Lymphocytes % (Manual) Seg Neutrophils # Seg Neutrophils # Man Lymphocytes # (Manual) PT INR APTT Heparin Anti-Xa Level 0.24 L POC ABG pH POC ABG pCO2 POC ABG pO2 Sodium Potassium Chloride Carbon Dioxide BUN Creatinine Glucose POC Glucose 279 H 136 H Hemoglobin A1c Lactic Acid Calcium Phosphorus AST Alkaline Phosphatase NT-Pro-B Natriuret Pep Total Protein Albumin Urine WBC (Auto) Crossmatch 10/21/18 10/21/18 10/21/18 05:45 05:45 05:45 WBC 15.8 H RBC 2.79 L Hgb 7.5 L Hct 22.9 L MCH 27 L RDW 19.8 H Plt Count Lymph % (Auto) 7.2 L [place] % (Auto) Lymph # 1.1 L [place] # Eos # Baso # Seg Neutrophils % 85.7 H Seg Neuts % (Manual) Lymphocytes % (Manual) Seg Neutrophils # 13.5 H Seg Neutrophils # Man Lymphocytes # (Manual) PT 16.9 H INR 1.29 H APTT Heparin Anti-Xa Level POC ABG pH POC ABG pCO2 POC ABG pO2 Sodium Potassium Chloride Carbon Dioxide BUN 18 H Creatinine 1.4 H Glucose 339 H POC Glucose Hemoglobin A1c Lactic Acid Calcium 8.3 L Phosphorus AST Alkaline Phosphatase NT-Pro-B Natriuret Pep Total Protein Albumin Urine WBC (Auto) Crossmatch 10/21/18 10/21/18 10/21/18 08:00 10:13 11:00 WBC RBC Hgb Hct MCH RDW Plt Count Lymph % (Auto) [place] % (Auto) Lymph # [place] # Eos # Baso # Seg Neutrophils % Seg Neuts % (Manual) Lymphocytes % (Manual) Seg Neutrophils # Seg Neutrophils # Man Lymphocytes # (Manual) PT INR APTT Heparin Anti-Xa Level POC ABG pH POC ABG pCO2 POC ABG pO2 Sodium Potassium Chloride Carbon Dioxide BUN Creatinine Glucose POC Glucose 398 H 295 H Hemoglobin A1c Lactic Acid Calcium Phosphorus AST Alkaline Phosphatase NT-Pro-B Natriuret Pep Total Protein Albumin Urine WBC (Auto) 125.0 H Crossmatch 10/21/18 10/21/18 10/21/18 11:18 17:20 17:52 WBC RBC Hgb Hct MCH RDW Plt Count Lymph % (Auto) [place] % (Auto) Lymph # [place] # Eos # Baso # Seg Neutrophils % Seg Neuts % (Manual) Lymphocytes % (Manual) Seg Neutrophils # Seg Neutrophils # Man Lymphocytes # (Manual) PT 17.2 H INR 1.32 H APTT 40.0 H Heparin Anti-Xa Level POC ABG pH POC ABG pCO2 POC ABG pO2 Sodium Potassium Chloride Carbon Dioxide BUN Creatinine Glucose POC Glucose 235 H 271 H Hemoglobin A1c Lactic Acid Calcium Phosphorus AST Alkaline Phosphatase NT-Pro-B Natriuret Pep Total Protein Albumin Urine WBC (Auto) Crossmatch 10/21/18 10/22/18 10/22/18 23:41 00:47 04:39 WBC 16.1 H RBC 2.69 L Hgb 6.7 L 7.3 L Hct 19.8 L* 22.3 L MCH 27 L RDW 20.4 H Plt Count Lymph % (Auto) 6.9 L [place] % (Auto) Lymph # 1.1 L [place] # 1.0 H Eos # Baso # Seg Neutrophils % 85.3 H Seg Neuts % (Manual) Lymphocytes % (Manual) Seg Neutrophils # 13.8 H Seg Neutrophils # Man Lymphocytes # (Manual) PT INR APTT Heparin Anti-Xa Level POC ABG pH POC ABG pCO2 POC ABG pO2 Sodium Potassium Chloride Carbon Dioxide BUN Creatinine Glucose POC Glucose 157 H Hemoglobin A1c Lactic Acid Calcium Phosphorus AST Alkaline Phosphatase NT-Pro-B Natriuret Pep Total Protein Albumin Urine WBC (Auto) Crossmatch 10/22/18 10/22/18 10/22/18 04:39 04:39 04:39 WBC RBC Hgb Hct MCH RDW Plt Count Lymph % (Auto) [place] % (Auto) Lymph # [place] # Eos # Baso # Seg Neutrophils % Seg Neuts % (Manual) Lymphocytes % (Manual) Seg Neutrophils # Seg Neutrophils # Man Lymphocytes # (Manual) PT 20.3 H INR 1.62 H APTT Heparin Anti-Xa Level 0.12 L POC ABG pH POC ABG pCO2 POC ABG pO2 Sodium Potassium Chloride Carbon Dioxide BUN 20 H Creatinine 1.7 H Glucose 255 H POC Glucose Hemoglobin A1c Lactic Acid Calcium 8.1 L Phosphorus AST Alkaline Phosphatase NT-Pro-B Natriuret Pep Total Protein Albumin Urine WBC (Auto) Crossmatch See Detail 10/22/18 10/22/18 10/22/18 05:09 11:20 11:20 WBC RBC Hgb 7.4 L Hct 21.9 L MCH RDW Plt Count 457 H Lymph % (Auto) [place] % (Auto) Lymph # [place] # Eos # Baso # Seg Neutrophils % Seg Neuts % (Manual) Lymphocytes % (Manual) Seg Neutrophils # Seg Neutrophils # Man Lymphocytes # (Manual) PT 20.8 H INR 1.67 H APTT 71.0 H* Heparin Anti-Xa Level 0.20 L POC ABG pH POC ABG pCO2 POC ABG pO2 Sodium Potassium Chloride Carbon Dioxide BUN Creatinine Glucose POC Glucose 297 H Hemoglobin A1c Lactic Acid Calcium Phosphorus AST Alkaline Phosphatase NT-Pro-B Natriuret Pep Total Protein Albumin Urine WBC (Auto) Crossmatch 10/22/18 10/22/18 10/22/18 12:09 16:51 17:11 WBC RBC Hgb Hct MCH RDW Plt Count Lymph % (Auto) [place] % (Auto) Lymph # [place] # Eos # Baso # Seg Neutrophils % Seg Neuts % (Manual) Lymphocytes % (Manual) Seg Neutrophils # Seg Neutrophils # Man Lymphocytes # (Manual) PT INR APTT Heparin Anti-Xa Level POC ABG pH POC ABG pCO2 POC ABG pO2 Sodium Potassium Chloride Carbon Dioxide BUN Creatinine Glucose 115 H POC Glucose 125 H < 40 L Hemoglobin A1c Lactic Acid Calcium Phosphorus AST Alkaline Phosphatase NT-Pro-B Natriuret Pep Total Protein Albumin Urine WBC (Auto) Crossmatch 10/22/18 10/23/18 10/23/18 17:13 00:08 06:19 WBC RBC Hgb Hct MCH RDW Plt Count Lymph % (Auto) [place] % (Auto) Lymph # [place] # Eos # Baso # Seg Neutrophils % Seg Neuts % (Manual) Lymphocytes % (Manual) Seg Neutrophils # Seg Neutrophils # Man Lymphocytes # (Manual) PT INR APTT Heparin Anti-Xa Level POC ABG pH POC ABG pCO2 POC ABG pO2 Sodium Potassium Chloride Carbon Dioxide BUN Creatinine Glucose POC Glucose 126 H 192 H 249 H Hemoglobin A1c Lactic Acid Calcium Phosphorus AST Alkaline Phosphatase NT-Pro-B Natriuret Pep Total Protein Albumin Urine WBC (Auto) Crossmatch 10/23/18 10/23/18 10/23/18 07:21 07:21 07:21 WBC 14.4 H RBC 3.29 L Hgb 9.2 L Hct 27.6 L MCH RDW 20.5 H Plt Count 505 H Lymph % (Auto) 8.1 L [place] % (Auto) Lymph # [place] # 1.0 H Eos # 0.6 H Baso # Seg Neutrophils % 80.0 H Seg Neuts % (Manual) Lymphocytes % (Manual) Seg Neutrophils # 11.5 H Seg Neutrophils # Man Lymphocytes # (Manual) PT 21.6 H INR 1.75 H APTT Heparin Anti-Xa Level POC ABG pH POC ABG pCO2 POC ABG pO2 Sodium Potassium Chloride Carbon Dioxide BUN 18 H Creatinine 1.5 H Glucose 308 H POC Glucose Hemoglobin A1c Lactic Acid Calcium Phosphorus AST Alkaline Phosphatase NT-Pro-B Natriuret Pep Total Protein Albumin Urine WBC (Auto) Crossmatch 10/23/18 10/23/18 10/23/18 10:34 11:56 17:07 WBC RBC Hgb Hct MCH RDW Plt Count Lymph % (Auto) [place] % (Auto) Lymph # [place] # Eos # Baso # Seg Neutrophils % Seg Neuts % (Manual) Lymphocytes % (Manual) Seg Neutrophils # Seg Neutrophils # Man Lymphocytes # (Manual) PT INR APTT Heparin Anti-Xa Level POC ABG pH POC ABG pCO2 POC ABG pO2 Sodium Potassium Chloride Carbon Dioxide BUN Creatinine Glucose POC Glucose > 500 H 440 H 387 H Hemoglobin A1c Lactic Acid Calcium Phosphorus AST Alkaline Phosphatase NT-Pro-B Natriuret Pep Total Protein Albumin Urine WBC (Auto) Crossmatch Allied health notes reviewed: nursing
[2018-10-24] MEDS: HumaLOG SUB-Q SCH ×7 (00:23→20:00)
[2018-10-24] MEDS: HEPARIN/ 0.45% NACL-25,000 UNIT/500 ML 25,000 UNIT/500 ML BAG IV SCH (00:24)
[2018-10-24 07:37] LABS: Hematocrit 24.3 % (30.3-42.9); Hemoglobin 7.9 gm/dl (10.1-14.3)
--- NOTE | 2018-10-24 07:53 | Progress Note ---
Assessment and Plan Assessment and plan: 48 year old woman with history of coronary artery disease, status post cabbage, diabetes, hypertension who was brought to the emergency room for altered mental status. She was found to have hypoglycemia, she was also having convulsions at the time of admission. The patient was intubated, sp dextrose she was put on the ventilator she was found to have pneumonia and CHF flare and started on antibiotics. patient has history of MV replacement and was on anticoagulation. Pneumonia, severe sepsis - Patient was on IV antibiotics and completed on 10/13 per ID Acute hypoxic respiratory failure on MV >96 hrs Was intubated and on mechanical ventilation - patient was extubated on 10/13 -Weaned to room air on 10/19, status epilepticus; Seizures when most likely due to hypoglycemia -Treated with dextrose -, neurology consult appreciated Acute on chronic systolic CHF EF 40%, dilated ventricles -cardiology consult appreciated, sp lasix, now on PO lasix [facility]/hypercoaguable state/coagulopathy due to warfarin INR subtherapeutic, on heparin ggt -very sensitive to warfain and gets supratherapeutic very quickly after a few doses, hematology consulted, cont lower dose warfarin Severe anemia sp-transfusion, Gi workup showed neg egd and c scope, outpatient pill camera recommended 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, treated as type 1, uncontrolled, a1c 10.2 Continue insulins judiciously, brittle DM with episodes of hypoglycemia and hyperglycemia, labile glc Mazin upon ckd stage 3, vasomotor nephropathy and likely ATN from sepsis Nephrology input appreciated, avoid nephrotoxins, neph signed off on 10/15 acute metabolic encephalopathy improving, appears to have some baseline confusion hypernatremia resolved after she received hypotonic ivf Hyperkalemia resolved with insulin and diuretics htn urgency; optimized bp meds Marijuana abuse; was counseled, preventive health counseling, done 17 mins spent dvt ppx- chemical, dispo; to [facility] when INR> 2.5 History Interval history: Review of systems Constitutional: No fevers, no malaise, no joint pains CVS: No chest pain, no pedal edema, sob is resolved GI:no hematemesis, blood in stool or melena, No abdominal pain, no diarrhea, no vomiting, no constipation Respiratory: No cough or wheezing Hospitalist Physical - Physical exam Narrative exam: General.: appears well HEENT: Moist mucous membranes, extraocular muscles intact, no lymphadenopathy Neck: supple Cardiac: S1-S2 heard Lungs: Clear to auscultation Abdomen: soft , nontender, nondistended, bowel sounds positive Extremities: no edema clubbing or cyanosis Skin: no rash or lesions Neurologic: no focal deficit Psych: calm and cooperative - Constitutional Vitals: Temp Pulse Resp BP Pulse Ox 98.2 F 90 18 100/53 98 10/24/18 04:48 10/24/18 04:48 10/24/18 04:48 10/24/18 04:48 10/24/18 04:48 General appearance: Present: other (intubated, eyes open, no purposeful response to commands) Results - Labs CBC & Chem 7: 10/24/18 06:39 10/23/18 07:21 Labs: Laboratory Last Values WBC 14.4 K/mm3 (4.5-11.0) H 10/23/18 07:21 RBC 3.29 M/mm3 (3.65-5.03) L 10/23/18 07:21 Hgb 7.9 gm/dl (10.1-14.3) L 10/24/18 06:39 Hct 24.3 % (30.3-42.9) L 10/24/18 06:39 MCV 84 fl (79-97) 10/23/18 07:21 MCH 28 pg (28-32) 10/23/18 07:21 MCHC 33 % (30-34) 10/23/18 07:21 RDW 20.5 % (13.2-15.2) H 10/23/18 07:21 Plt Count 522 K/mm3 (140-440) H 10/24/18 06:39 Lymph % (Auto) 8.1 % (13.4-35.0) L 10/23/18 07:21 [place] % (Auto) 7.3 % (0.0-7.3) 10/23/18 07:21 Eos % (Auto) 3.8 % (0.0-4.3) 10/23/18 07:21 Baso % (Auto) 0.8 % (0.0-1.8) 10/23/18 07:21 Lymph # 1.2 K/mm3 (1.2-5.4) 10/23/18 07:21 [place] # 1.0 K/mm3 (0.0-0.8) H 10/23/18 07:21 Eos # 0.6 K/mm3 (0.0-0.4) H 10/23/18 07:21 Baso # 0.1 K/mm3 (0.0-0.1) 10/23/18 07:21 Add Manual Diff Complete 10/17/18 05:00 Total Counted 100 10/17/18 05:00 Seg Neutrophils % 80.0 % (40.0-70.0) H 10/23/18 07:21 Seg Neuts % (Manual) 87.0 % (40.0-70.0) H 10/17/18 05:00 0 % 10/17/18 05:00 9.0 % (13.4-35.0) L 10/17/18 05:00 Reactive Lymphs % (Man) 0 % 10/17/18 05:00 2.0 % (0.0-7.3) 10/17/18 05:00 2.0 % (0.0-4.3) 10/17/18 05:00 0 % (0.0-1.8) 10/17/18 05:00 0 % 10/17/18 05:00 0 % 10/17/18 05:00 0 % 10/17/18 05:00 0 % 10/17/18 05:00 Nucleated RBC % Not Reportable 10/17/18 05:00 Seg Neutrophils # 11.5 K/mm3 (1.8-7.7) H 10/23/18 07:21 Seg Neutrophils # Man 10.1 K/mm3 (1.8-7.7) H 10/17/18 05:00 Band Neutrophils # 0.0 K/mm3 10/17/18 05:00 1.0 K/mm3 (1.2-5.4) L 10/17/18 05:00 Abs React Lymphs (Man) 0.0 K/mm3 10/17/18 05:00 0.2 K/mm3 (0.0-0.8) 10/17/18 05:00 0.2 K/mm3 (0.0-0.4) 10/17/18 05:00 0.0 K/mm3 (0.0-0.1) 10/17/18 05:00 0.0 K/mm3 10/17/18 05:00 0.0 K/mm3 10/17/18 05:00 0.0 K/mm3 10/17/18 05:00 Blast Cells # 0.0 K/mm3 10/17/18 05:00 WBC Morphology Not Reportable 10/17/18 05:00 Hypersegmented Neuts Not Reportable 10/17/18 05:00 Hyposegmented Neuts Not Reportable 10/17/18 05:00 Hypogranular Neuts Not Reportable 10/17/18 05:00 Not Reportable 10/17/18 05:00 Not Reportable 10/17/18 05:00 Not Reportable 10/17/18 05:00 Not Reportable 10/17/18 05:00 Not Reportable 10/17/18 05:00 Not Reportable 10/17/18 05:00 Consistent w auto 10/17/18 05:00 Not Reportable 10/17/18 05:00 Plt Clumps, EDTA Not Reportable 10/17/18 05:00 Not Reportable 10/17/18 05:00 Not Reportable 10/17/18 05:00 Not Reportable 10/17/18 05:00 Plt Morphology Comment Not Reportable 10/17/18 05:00 RBC Morphology Not Reportable 10/17/18 05:00 Dimorphic RBCs Not Reportable 10/17/18 05:00 Not Reportable 10/17/18 05:00 1+ 10/17/18 05:00 Few 10/17/18 05:00 1+ 10/17/18 05:00 Not Reportable 10/17/18 05:00 Rare 10/17/18 05:00 Not Reportable 10/17/18 05:00 Not Reportable 10/17/18 05:00 Not Reportable 10/17/18 05:00 Not Reportable 10/17/18 05:00 Not Reportable 10/17/18 05:00 Not Reportable 10/17/18 05:00 Not Reportable 10/17/18 05:00 Not Reportable 10/17/18 05:00 Not Reportable 10/17/18 05:00 Not Reportable 10/17/18 05:00 Not Reportable 10/17/18 05:00 Not Reportable 10/17/18 05:00 Not Reportable 10/17/18 05:00 Acanthocytes (Spur) Not Reportable 10/17/18 05:00 Rouleaux Not Reportable 10/17/18 05:00 Not Reportable 10/17/18 05:00 Not Reportable 10/17/18 05:00 Not Reportable 10/17/18 05:00 Not Reportable 10/17/18 05:00 Hem Pathologist Commnt No 10/17/18 05:00 PT 21.6 Sec. (12.2-14.9) H 10/23/18 07:21 INR 1.75 (0.87-1.13) H 10/23/18 07:21 APTT 71.0 Sec. (24.2-36.6) H* 10/22/18 11:20 Heparin Anti-Xa Level 0.37 U.I./ml (0.3-0.7) 10/23/18 19:14 POC ABG pH 7.458 (7.35-7.45) H 10/19/18 19:56 POC ABG pCO2 37.9 (35-45) 10/19/18 19:56 POC ABG pO2 63 (80-105) L 10/19/18 19:56 POC ABG HCO3 26.8 (22-26 mml/L) 10/19/18 19:56 POC ABG Total CO2 28 (23-27mmol/L) 10/19/18 19:56 POC ABG O2 Sat 93 10/19/18 19:56 POC ABG Base Excess 3 ((-2) - (+3)mmol/L) 10/19/18 19:56 2 % 10/19/18 19:56 Sodium 137 mmol/L (137-145) 10/23/18 07:21 Potassium 4.0 mmol/L (3.6-5.0) 10/23/18 07:21 Chloride 100.4 mmol/L (98-107) 10/23/18 07:21 Carbon Dioxide 23 mmol/L (22-30) 10/23/18 07:21 18 mmol/L 10/23/18 07:21 BUN 18 mg/dL (7-17) H 10/23/18 07:21 1.5 mg/dL (0.7-1.2) H 10/23/18 07:21 Estimated GFR 45 ml/min 10/23/18 07:21 12 % 10/23/18 07:21 Glucose 308 mg/dL (65-100) H 10/23/18 07:21 POC Glucose 154 (70-105) H 10/24/18 06:18 10.2 % (4-6) H 10/07/18 22:08 Lactic Acid 1.50 mmol/L (0.7-2.0) 10/08/18 17:09 Calcium 8.4 mg/dL (8.4-10.2) 10/23/18 07:21 Phosphorus 7.40 mg/dL (2.5-4.5) H 10/07/18 22:08 Magnesium 1.70 mg/dL (1.7-2.3) 10/18/18 20:20 0.60 mg/dL (0.1-1.2) 10/17/18 05:00 < 0.2 mg/dL (0-0.2) 10/17/18 05:00 0.4 mg/dL 10/17/18 05:00 AST 14 units/L (5-40) 10/17/18 05:00 ALT 8 units/L (7-56) 10/17/18 05:00 104 units/L (35-129) 10/17/18 05:00 40.0 umol/L (25-60) 10/07/18 02:43 < 0.010 ng/mL (0.00-0.029) 10/07/18 08:59 0.20 mg/dL (0.00-1.30) 10/07/18 14:55 NT-Pro-B Natriuret Pep 2865 pg/mL (0-450) H 10/09/18 03:20 5.4 g/dL (6.3-8.2) L 10/17/18 05:00 2.2 g/dL (3.9-5) L 10/17/18 05:00 0.7 % 10/17/18 05:00 Fay (Yellow) 10/21/18 11:00 Cloudy (Clear) 10/21/18 11:00 5.0 (5.0-7.0) 10/21/18 11:00 Ur Specific [place] 1.022 (1.003-1.030) 10/21/18 11:00 >500 mg/dL (Negative) 10/21/18 11:00 50 mg/dL (Negative) 10/21/18 11:00 Neg mg/dL (Negative) 10/21/18 11:00 Lg (Negative) 10/21/18 11:00 Neg (Negative) 10/21/18 11:00 Neg (Negative) 10/21/18 11:00 < 2.0 mg/dL (<2.0) 10/21/18 11:00 Ur Leukocyte Esterase Mod (Negative) 10/21/18 11:00 125.0 /HPF (0.0-6.0) H 10/21/18 11:00 131.0 /HPF (0.0-6.0) 10/21/18 11:00 U Epithel Cells (Auto) 2.0 /HPF (0-13.0) 10/21/18 11:00 2+ /HPF 10/21/18 11:00 Hyaline Casts 3 /LPF 10/07/18 02:34 Few /HPF 10/07/18 02:34 3+ /HPF 10/21/18 11:00 Presumptive negative 10/07/18 02:34 Presumptive negative 10/07/18 02:34 Ur Barbiturates Screen Presumptive negative 10/07/18 02:34 Ur Phencyclidine Scrn Presumptive negative 10/07/18 02:34 Ur Amphetamines Screen Presumptive negative 10/07/18 02:34 U Benzodiazepines Scrn Presumptive negative 10/07/18 02:34 Presumptive negative 10/07/18 02:34 U Marijuana (THC) Screen Presumptive positive 10/07/18 02:34 Disclamer 10/07/18 02:34 Blood Type O POSITIVE 10/22/18 04:39 Antibody Screen Negative 10/22/18 04:39 Crossmatch See Detail 10/22/18 04:39 Active Medications - Current Medications Current Medications: Generic Name Dose Route Start Last Admin Trade Name Freq PRN Reason Stop Dose Admin Acetaminophen 650 mg 10/07/18 04:59 10/20/18 12:56 Tylenol PO 650 mg Q4H PRN Administration Pain MILD(1-3)/Fever >100.5/RODRIGUEZ Lipase/Protease/Amylase 1 each 10/08/18 10:[address] 10,500 Unit FEEDTUBE PRN PRN For Clogged Feeding Tube Dextrose 50 ml 10/07/18 20:42 10/22/18 16:51 D50w (25gm) Syringe IV 50 ml PRN PRN Administration Hypoglycemia Furosemide 40 mg 10/19/18 11:00 10/23/18 10:40 Lasix PO 40 mg QDAY ULI Administration Hydralazine HCl 10 mg 10/07/18 05:07 10/14/18 08:35 Apresoline IV 10 mg Q4H PRN Administration Blood Pressure Hydrophilic Ointment 1 applic 10/07/18 02:40 Vaseline Lip Therapy TP Q2HR PRN Dry Lips Heparin Sodium/Sodium Chloride 25,000 unit in 500 mls @ 15 mls/hr 10/21/18 18:00 10/24/18 00:24 Heparin/ 0.45% Nacl-25,000 Unit/500 Ml IV 900 units/hr TITRATE ULI 18 mls/hr Administration Protocol 750 UNITS/HR Insulin Glargine 8 units 10/24/18 10:00 Lantus SUB-Q DAILY ULI Insulin Human Lispro 0 unit 10/09/18 00:00 10/24/18 00:23 Humalog SUB-Q 1 unit Q6HR ULI Administration Protocol Insulin Human Lispro 7 unit 10/23/18 16:30 10/23/18 17:10 Humalog SUB-Q 7 unit AC ULI Administration Lansoprazole 30 mg 10/16/18 22:00 10/23/18 22:31 Prevacid Solutab FEEDTUBE 30 mg BID ULI Administration Metoclopramide HCl 10 mg 10/11/18 13:00 10/12/18 19:32 Reglan IV 10 mg Q6HR PRN Administration Nausea And Vomiting Metoprolol Tartrate 12.5 mg 10/23/18 14:46 10/23/18 22:31 Lopressor PO 12.5 mg TID ULI Administration Multi-Ingred Cream/Lotion/Oil/Oint 1 applic 10/07/18 02:40 Artificial Tears Ophth Oint OU Q4HR PRN Dry Eye(s) Ondansetron HCl 4 mg 10/07/18 04:59 Zofran IV Q8H PRN N/V unrelieved by Reglan Quetiapine Fumarate 100 mg 10/09/18 22:00 10/23/18 22:30 Seroquel PO 100 mg QHS ULI Administration Simple Syrup 15 ml 10/08/18 10:00 Simple Syrup FEEDTUBE PRN PRN Hypoglycemia Simple Syrup 30 ml 10/08/18 10:00 10/09/18 01:09 Simple Syrup FEEDTUBE 30 ml PRN PRN Administration Hypoglycemia Sodium Bicarbonate 325 mg 10/08/18 10:00 Sodium Bicarbonate FEEDTUBE PRN PRN For Clogged Feeding Tube Sodium Chloride 10 ml 10/07/18 10:00 10/23/18 23:14 Sodium Chloride Flush Syringe 10 Ml IV 10 ml BID ULI Administration Sodium Chloride 10 ml 10/07/18 04:59 10/18/18 07:15 Sodium Chloride Flush Syringe 10 Ml IV 10 ml PRN PRN Administration LINE FLUSH Warfarin Sodium 2 mg 10/21/18 18:00 10/23/18 17:12 Coumadin PO 2 mg DAILY@1700 ULI Administration Protocol Nutrition/Malnutrition Assess - Dietary Evaluation Nutrition/Malnutrition Findings: Nutrition Notes Start: 10/07/18 12:17 Freq: Status: Active Protocol: Document 10/21/18 10:51 CP (Rec: 10/21/18 10:59 CP [id number]) Co-Sign 10/21/18 10:51 LP Nutrition Notes Initial or Follow up Reassessment Current Diagnosis CKD (stage V CKD),Diabetes, Hypertension,Heart Failure Current Diet NPO after midnight Labs/Tests Glu: 339 Pertinent Medications Warfarin Lasix Humalog Height 5 ft 2 in Weight 52.5 kg [place] Body Weight (kg) 50.00 BMI 21.2 Subjective/Other Information Pt screened for DNI. F/U for PO tolerance and diet advancement. Pt is currently NPO after midnight. Provided consistent vitamin K education during time of visit. Percent of energy/protein needs met: 0%/0% Burn Absent Trauma Absent #1 Nutrition Diagnosis Inadequate oral intake Diagnosis Progress(for reassessment Continues documentation) Is patient on ventilator? No Is Patient Ambulatory and/or Out of Bed No REE-([facility]-confined to bed) 1327.091 Calculation Used for Recommendations [facility] Additional Notes Pro needs 0.8-1g/k-55g/ day Fluid needs 1ml/kcal Nutrition Intervention Change Diet Order: Continue current or per MD request Goal #1 Diet advancement Follow-Up By: 10/25/18 Additional Comments F/U: diet advancement
[2018-10-24] MEDS: LASIX PO SCH (09:17)
[2018-10-24] MEDS: LOPRESSOR PO SCH ×3 (09:17→21:07)
[2018-10-24] MEDS: SODIUM CHLORIDE FLUSH SYRINGE 10 ML IV SCH (09:17)
[2018-10-24] MEDS: PREVACID SOLUTAB FEEDTUBE SCH ×2 (09:17→21:06)
[2018-10-24] MEDS: LANTUS SUB-Q SCH (09:22)
[2018-10-24 09:29] LABS: INR 1.64 (0.87-1.13)
[2018-10-24] MEDS ORDERED: COUMADIN PO SCH ×2 (09:31→17:00)
--- NOTE | 2018-10-24 10:11 | Progress Note ---
Assessment and Plan S/p endoscopy over the weekend. Coumadin resumed with tx INR 2.5 - 3.5. Currently stable cardiac status. Cont PO lasix, lopressor. Consider ACEI/ARB if okay per nephrology. Nothing further to add from cardiac perspective at this time. Will sign off. Recommend pt follow up with [place] [facility] within 3-5 days of hospital discharge. Pt verbalizes understanding. The patient has been seen in conjunction with Dr. Hong who agrees with the assessment and plan of care. - Patient Problems (1) Altered mental status Current Visit: Yes Status: Resolved (2) Seizures Current Visit: Yes Status: Suspected (3) Hypoglycemia Current Visit: Yes Status: Resolved (4) Acute respiratory failure Current Visit: Yes Status: Resolved (5) Pneumonia Current Visit: Yes Status: Suspected Qualifiers: Pneumonia type: due to unspecified organism Laterality: right Lung location: middle lobe of lung Qualified Code(s): J18.1 - Lobar pneumonia, unspecified organism (6) Sepsis Current Visit: Yes Status: Suspected Qualifiers: Sepsis type: sepsis due to unspecified organism Qualified Code(s): A41.9 - Sepsis, unspecified organism (7) CAD (coronary artery disease) Current Visit: Yes Status: Chronic (8) History of coronary artery bypass graft Current Visit: Yes Status: Chronic (9) H/O mitral valve replacement with mechanical valve Current Visit: Yes Status: Chronic (10) Heart failure with reduced ejection fraction Current Visit: Yes Status: Acute (11) Acute on chronic renal failure Current Visit: Yes Status: Acute (12) Anemia Current Visit: Yes Status: Chronic (13) History of GI bleed Current Visit: Yes Status: Chronic (14) Diabetes Current Visit: Yes Status: Chronic Subjective Date of service: 10/24/18 Principal diagnosis: Ac hypoxemic resp failure; Seizures (?hypoglycemic); Ac encephalopathy(T/M) Interval history: pt resting in bed, no current cardiac complaints. Objective Last Vital Signs Temp 98.2 F 10/24/18 04:48 Pulse 90 10/24/18 04:48 Resp 18 10/24/18 04:48 BP 132/76 10/24/18 09:17 Pulse Ox 98 10/24/18 04:48 - Physical Examination General: No Apparent Distress HEENT: Positive: PERRL Neck: Positive: neck supple (valve clicks intact.) Cardiac: Positive: Reg Rate and Rhythm, S1/S2 Lungs: Positive: Decreased Breath Sounds Neuro: Positive: Grossly Intact Abdomen: Negative: Tender Skin: Negative: Rash Extremities: Absent: edema - Labs and Meds Coagulation 10/24/18 Range/Units 08:05 PT 20.5 H (12.2-14.9) Sec. INR 1.64 H (0.87-1.13) CBC 10/24/18 Range/Units 06:39 Hgb 7.9 L (10.1-14.3) gm/dl Hct 24.3 L (30.3-42.9) % Plt Count 522 H (140-440) K/mm3 - Imaging and Cardiology EKG: report reviewed, image reviewed Echo: report reviewed (07/2018: EF 40%, mild to mod LVH, LA and RA dilated, mod TR and OR, mechanical valve in mitral position that appears to be functioning properly. 10/2018: EF 35-40%, mod LVH, abnormal diastolic function, LA severely dilated, mechanical MV appears well seated with normal function, mod pulm HTN. 11/2016 showed EF 40-45%, abnormal diastolic function, trace MR, mild TR, RVSP 36mmHg. ) - EKG Sinus rhythms and dysrhythmias: sinus rhythm Chamber hypertrophy or enlargement: left ventricular hypertro - Allied health notes Allied health notes reviewed: nursing
--- NOTE | 2018-10-24 16:32 | Progress Note ---
Subjective Date of service: 10/24/18 Principal diagnosis: Ac hypoxemic resp failure; Seizures (?hypoglycemic); Ac encephalopathy(T/M) Interval history: plan MRI as follow up testing to assess thwe reasults of therapy interventions Objective - Vital Sign Vital Signs - 12hr 10/24/18 10/24/18 10/24/18 04:48 09:17 10:00 Temperature 98.2 F Pulse Rate 90 90 Respiratory 18 Rate Blood Pressure 100/53 132/76 O2 Sat by Pulse 98 Oximetry 10/24/18 10/24/18 10/24/18 11:35 12:15 14:38 Temperature 98.3 F Pulse Rate 91 H 90 90 Respiratory 12 Rate Blood Pressure 114/72 114/72 O2 Sat by Pulse 98 Oximetry - Laboratory Findings CBC and BMP: 10/24/18 06:39 10/23/18 07:21 Abnormal Lab Findings: Abnormal Labs 10/07/18 10/07/18 10/07/18 02:20 02:43 02:43 WBC RBC Hgb Hct MCH 25 L RDW 21.5 H Plt Count Lymph % (Auto) [place] % (Auto) Lymph # 0.9 L [place] # Eos # Baso # Seg Neutrophils % 78.4 H Seg Neuts % (Manual) Lymphocytes % (Manual) Seg Neutrophils # Seg Neutrophils # Man Lymphocytes # (Manual) PT INR APTT Heparin Anti-Xa Level POC ABG pH POC ABG pCO2 POC ABG pO2 Sodium Potassium Chloride 108.0 H Carbon Dioxide 21 L BUN Creatinine 1.5 H Glucose 115 H POC Glucose 136 H Hemoglobin A1c Lactic Acid Calcium Phosphorus AST 51 H Alkaline Phosphatase 257 H NT-Pro-B Natriuret Pep Total Protein Albumin Urine WBC (Auto) Crossmatch 10/07/18 10/07/18 10/07/18 02:43 04:32 05:12 WBC RBC Hgb Hct MCH RDW Plt Count Lymph % (Auto) [place] % (Auto) Lymph # [place] # Eos # Baso # Seg Neutrophils % Seg Neuts % (Manual) Lymphocytes % (Manual) Seg Neutrophils # Seg Neutrophils # Man Lymphocytes # (Manual) PT 25.4 H INR 2.14 H APTT Heparin Anti-Xa Level POC ABG pH POC ABG pCO2 33.6 L POC ABG pO2 69 L Sodium Potassium Chloride Carbon Dioxide BUN Creatinine Glucose POC Glucose Hemoglobin A1c Lactic Acid 2.40 H* Calcium Phosphorus AST Alkaline Phosphatase NT-Pro-B Natriuret Pep Total Protein Albumin Urine WBC (Auto) Crossmatch 10/07/18 10/07/18 10/07/18 06:28 18:39 20:26 WBC RBC Hgb Hct MCH RDW Plt Count Lymph % (Auto) [place] % (Auto) Lymph # [place] # Eos # Baso # Seg Neutrophils % Seg Neuts % (Manual) Lymphocytes % (Manual) Seg Neutrophils # Seg Neutrophils # Man Lymphocytes # (Manual) PT INR APTT Heparin Anti-Xa Level POC ABG pH POC ABG pCO2 POC ABG pO2 Sodium Potassium Chloride Carbon Dioxide BUN Creatinine Glucose POC Glucose 164 H 440 H > 500 H Hemoglobin A1c Lactic Acid Calcium Phosphorus AST Alkaline Phosphatase NT-Pro-B Natriuret Pep Total Protein Albumin Urine WBC (Auto) Crossmatch 10/07/18 10/07/18 10/07/18 20:28 21:53 22:08 WBC RBC Hgb Hct MCH RDW Plt Count Lymph % (Auto) [place] % (Auto) Lymph # [place] # Eos # Baso # Seg Neutrophils % Seg Neuts % (Manual) Lymphocytes % (Manual) Seg Neutrophils # Seg Neutrophils # Man Lymphocytes # (Manual) PT INR APTT Heparin Anti-Xa Level POC ABG pH POC ABG pCO2 POC ABG pO2 Sodium 136 L D Potassium 6.4 H* D Chloride Carbon Dioxide 10 L D BUN 30 H Creatinine 2.0 H Glucose 544 H* POC Glucose 483 H > 500 H Hemoglobin A1c Lactic Acid Calcium 7.0 L D Phosphorus AST Alkaline Phosphatase NT-Pro-B Natriuret Pep Total Protein Albumin Urine WBC (Auto) Crossmatch 10/07/18 10/07/18 10/07/18 22:08 22:08 22:56 WBC RBC Hgb Hct MCH RDW Plt Count Lymph % (Auto) [place] % (Auto) Lymph # [place] # Eos # Baso # Seg Neutrophils % Seg Neuts % (Manual) Lymphocytes % (Manual) Seg Neutrophils # Seg Neutrophils # Man Lymphocytes # (Manual) PT INR APTT Heparin Anti-Xa Level POC ABG pH POC ABG pCO2 POC ABG pO2 Sodium Potassium Chloride Carbon Dioxide BUN Creatinine Glucose POC Glucose 462 H Hemoglobin A1c 10.2 H Lactic Acid Calcium Phosphorus 7.40 H AST Alkaline Phosphatase NT-Pro-B Natriuret Pep Total Protein Albumin Urine WBC (Auto) Crossmatch 10/07/18 10/08/18 10/08/18 23:39 00:58 02:09 WBC RBC Hgb Hct MCH RDW Plt Count Lymph % (Auto) [place] % (Auto) Lymph # [place] # Eos # Baso # Seg Neutrophils % Seg Neuts % (Manual) Lymphocytes % (Manual) Seg Neutrophils # Seg Neutrophils # Man Lymphocytes # (Manual) PT INR APTT Heparin Anti-Xa Level POC ABG pH POC ABG pCO2 POC ABG pO2 Sodium Potassium Chloride Carbon Dioxide BUN Creatinine Glucose POC Glucose 396 H 375 H 285 H Hemoglobin A1c Lactic Acid Calcium Phosphorus AST Alkaline Phosphatase NT-Pro-B Natriuret Pep Total Protein Albumin Urine WBC (Auto) Crossmatch 10/08/18 10/08/18 10/08/18 03:10 03:33 04:05 WBC RBC Hgb Hct MCH RDW Plt Count Lymph % (Auto) [place] % (Auto) Lymph # [place] # Eos # Baso # Seg Neutrophils % Seg Neuts % (Manual) Lymphocytes % (Manual) Seg Neutrophils # Seg Neutrophils # Man Lymphocytes # (Manual) PT INR APTT Heparin Anti-Xa Level POC ABG pH 7.243 L POC ABG pCO2 33.8 L POC ABG pO2 126 H Sodium Potassium 5.3 H Chloride 110.7 H Carbon Dioxide 14 L BUN 33 H Creatinine 2.2 H Glucose 193 H POC Glucose 251 H Hemoglobin A1c Lactic Acid Calcium 7.0 L Phosphorus AST Alkaline Phosphatase 155 H NT-Pro-B Natriuret Pep Total Protein 5.2 L D Albumin 2.6 L Urine WBC (Auto) Crossmatch 10/08/18 10/08/18 10/08/18 04:05 04:05 04:09 WBC 11.8 H RBC 3.32 L Hgb 8.3 L Hct 27.5 L D MCH 25 L RDW 22.0 H Plt Count Lymph % (Auto) 6.8 L [place] % (Auto) 12.0 H Lymph # 0.8 L [place] # 1.4 H Eos # Baso # Seg Neutrophils % 80.6 H Seg Neuts % (Manual) Lymphocytes % (Manual) Seg Neutrophils # 9.5 H Seg Neutrophils # Man Lymphocytes # (Manual) PT INR APTT Heparin Anti-Xa Level POC ABG pH POC ABG pCO2 POC ABG pO2 Sodium Potassium Chloride Carbon Dioxide BUN Creatinine Glucose POC Glucose 175 H Hemoglobin A1c Lactic Acid 3.70 H* Calcium Phosphorus AST Alkaline Phosphatase NT-Pro-B Natriuret Pep Total Protein Albumin Urine WBC (Auto) Crossmatch 10/08/18 10/08/18 10/08/18 05:07 06:05 07:14 WBC RBC Hgb Hct MCH RDW Plt Count Lymph % (Auto) [place] % (Auto) Lymph # [place] # Eos # Baso # Seg Neutrophils % Seg Neuts % (Manual) Lymphocytes % (Manual) Seg Neutrophils # Seg Neutrophils # Man Lymphocytes # (Manual) PT INR APTT Heparin Anti-Xa Level POC ABG pH POC ABG pCO2 POC ABG pO2 Sodium Potassium Chloride Carbon Dioxide BUN Creatinine Glucose POC Glucose 125 H 122 H 147 H Hemoglobin A1c Lactic Acid Calcium Phosphorus AST Alkaline Phosphatase NT-Pro-B Natriuret Pep Total Protein Albumin Urine WBC (Auto) Crossmatch 10/08/18 10/08/18 10/08/18 07:22 08:09 08:47 WBC RBC Hgb Hct MCH RDW Plt Count Lymph % (Auto) [place] % (Auto) Lymph # [place] # Eos # Baso # Seg Neutrophils % Seg Neuts % (Manual) Lymphocytes % (Manual) Seg Neutrophils # Seg Neutrophils # Man Lymphocytes # (Manual) PT INR APTT Heparin Anti-Xa Level POC ABG pH POC ABG pCO2 POC ABG pO2 Sodium Potassium 5.2 H Chloride 112.4 H Carbon Dioxide 17 L BUN 32 H Creatinine 2.1 H Glucose 148 H POC Glucose 134 H 148 H Hemoglobin A1c Lactic Acid Calcium 6.6 L Phosphorus AST Alkaline Phosphatase NT-Pro-B Natriuret Pep Total Protein Albumin Urine WBC (Auto) Crossmatch 10/08/18 10/08/18 10/08/18 10:21 13:29 14:21 WBC RBC Hgb Hct MCH RDW Plt Count Lymph % (Auto) [place] % (Auto) Lymph # [place] # Eos # Baso # Seg Neutrophils % Seg Neuts % (Manual) Lymphocytes % (Manual) Seg Neutrophils # Seg Neutrophils # Man Lymphocytes # (Manual) PT INR APTT Heparin Anti-Xa Level POC ABG pH POC ABG pCO2 POC ABG pO2 Sodium Potassium Chloride Carbon Dioxide BUN Creatinine Glucose POC Glucose 115 H 109 H 118 H Hemoglobin A1c Lactic Acid Calcium Phosphorus AST Alkaline Phosphatase NT-Pro-B Natriuret Pep Total Protein Albumin Urine WBC (Auto) Crossmatch 10/08/18 10/08/18 10/08/18 15:27 17:00 17:00 WBC 11.3 H RBC 3.21 L Hgb 7.9 L Hct 25.7 L MCH 25 L RDW 21.8 H Plt Count Lymph % (Auto) 8.5 L [place] % (Auto) 7.7 H Lymph # 1.0 L [place] # 0.9 H Eos # Baso # Seg Neutrophils % 82.8 H Seg Neuts % (Manual) Lymphocytes % (Manual) Seg Neutrophils # 9.3 H Seg Neutrophils # Man Lymphocytes # (Manual) PT INR APTT Heparin Anti-Xa Level POC ABG pH POC ABG pCO2 POC ABG pO2 Sodium Potassium Chloride Carbon Dioxide BUN Creatinine Glucose POC Glucose 129 H Hemoglobin A1c Lactic Acid Calcium Phosphorus AST Alkaline Phosphatase NT-Pro-B Natriuret Pep 3097 H Total Protein Albumin Urine WBC (Auto) Crossmatch 10/08/18 10/08/18 10/08/18 17:07 17:12 18:22 WBC RBC Hgb Hct MCH RDW Plt Count Lymph % (Auto) [place] % (Auto) Lymph # [place] # Eos # Baso # Seg Neutrophils % Seg Neuts % (Manual) Lymphocytes % (Manual) Seg Neutrophils # Seg Neutrophils # Man Lymphocytes # (Manual) PT INR APTT Heparin Anti-Xa Level POC ABG pH 7.337 L POC ABG pCO2 32.0 L POC ABG pO2 130 H Sodium Potassium Chloride 115.5 H Carbon Dioxide 17 L BUN 30 H Creatinine 1.9 H Glucose 103 H POC Glucose 119 H Hemoglobin A1c Lactic Acid Calcium 6.9 L Phosphorus AST Alkaline Phosphatase NT-Pro-B Natriuret Pep Total Protein Albumin Urine WBC (Auto) Crossmatch 10/08/18 10/08/18 10/09/18 20:09 20:57 01:10 WBC RBC Hgb Hct MCH RDW Plt Count Lymph % (Auto) [place] % (Auto) Lymph # [place] # Eos # Baso # Seg Neutrophils % Seg Neuts % (Manual) Lymphocytes % (Manual) Seg Neutrophils # Seg Neutrophils # Man Lymphocytes # (Manual) PT INR APTT Heparin Anti-Xa Level POC ABG pH POC ABG pCO2 POC ABG pO2 Sodium Potassium Chloride 114.3 H 113.7 H Carbon Dioxide 15 L 14 L BUN 29 H 29 H Creatinine 2.1 H 2.0 H Glucose 132 H 39 L* POC Glucose 150 H Hemoglobin A1c Lactic Acid Calcium 6.7 L 6.9 L Phosphorus AST Alkaline Phosphatase NT-Pro-B Natriuret Pep Total Protein Albumin Urine WBC (Auto) Crossmatch 10/09/18 10/09/18 10/09/18 01:10 01:43 03:20 WBC RBC Hgb Hct MCH RDW Plt Count Lymph % (Auto) [place] % (Auto) Lymph # [place] # Eos # Baso # Seg Neutrophils % Seg Neuts % (Manual) Lymphocytes % (Manual) Seg Neutrophils # Seg Neutrophils # Man Lymphocytes # (Manual) PT INR APTT Heparin Anti-Xa Level POC ABG pH POC ABG pCO2 POC ABG pO2 Sodium Potassium Chloride Carbon Dioxide BUN Creatinine Glucose POC Glucose < 40 L < 40 L Hemoglobin A1c Lactic Acid Calcium Phosphorus AST Alkaline Phosphatase NT-Pro-B Natriuret Pep 2865 H Total Protein Albumin Urine WBC (Auto) Crossmatch 10/09/18 10/09/18 10/09/18 04:23 05:03 05:25 WBC RBC Hgb Hct MCH RDW Plt Count Lymph % (Auto) [place] % (Auto) Lymph # [place] # Eos # Baso # Seg Neutrophils % Seg Neuts % (Manual) Lymphocytes % (Manual) Seg Neutrophils # Seg Neutrophils # Man Lymphocytes # (Manual) PT INR APTT Heparin Anti-Xa Level POC ABG pH POC ABG pCO2 30.6 L 32.3 L POC ABG pO2 118 H Sodium Potassium Chloride Carbon Dioxide BUN Creatinine Glucose POC Glucose 148 H Hemoglobin A1c Lactic Acid Calcium Phosphorus AST Alkaline Phosphatase NT-Pro-B Natriuret Pep Total Protein Albumin Urine WBC (Auto) Crossmatch 10/09/18 10/09/18 10/09/18 06:00 08:34 09:58 WBC RBC Hgb Hct MCH RDW Plt Count Lymph % (Auto) [place] % (Auto) Lymph # [place] # Eos # Baso # Seg Neutrophils % Seg Neuts % (Manual) Lymphocytes % (Manual) Seg Neutrophils # Seg Neutrophils # Man Lymphocytes # (Manual) PT INR APTT Heparin Anti-Xa Level POC ABG pH POC ABG pCO2 POC ABG pO2 Sodium Potassium Chloride Carbon Dioxide BUN Creatinine Glucose POC Glucose 173 H 196 H 183 H Hemoglobin A1c Lactic Acid Calcium Phosphorus AST Alkaline Phosphatase NT-Pro-B Natriuret Pep Total Protein Albumin Urine WBC (Auto) Crossmatch 10/09/18 10/09/18 10/09/18 12:25 12:46 18:16 WBC RBC Hgb Hct MCH RDW Plt Count Lymph % (Auto) [place] % (Auto) Lymph # [place] # Eos # Baso # Seg Neutrophils % Seg Neuts % (Manual) Lymphocytes % (Manual) Seg Neutrophils # Seg Neutrophils # Man Lymphocytes # (Manual) PT INR APTT Heparin Anti-Xa Level POC ABG pH POC ABG pCO2 POC ABG pO2 Sodium Potassium Chloride 110.3 H Carbon Dioxide 16 L BUN 24 H Creatinine 1.8 H Glucose 207 H POC Glucose 208 H 177 H Hemoglobin A1c Lactic Acid Calcium 6.9 L Phosphorus AST Alkaline Phosphatase NT-Pro-B Natriuret Pep Total Protein Albumin Urine WBC (Auto) Crossmatch 10/09/18 10/10/18 10/10/18 21:11 00:11 05:41 WBC RBC Hgb Hct MCH RDW Plt Count Lymph % (Auto) [place] % (Auto) Lymph # [place] # Eos # Baso # Seg Neutrophils % Seg Neuts % (Manual) Lymphocytes % (Manual) Seg Neutrophils # Seg Neutrophils # Man Lymphocytes # (Manual) PT INR APTT Heparin Anti-Xa Level POC ABG pH POC ABG pCO2 POC ABG pO2 Sodium Potassium Chloride Carbon Dioxide BUN Creatinine Glucose POC Glucose 124 H 156 H 42 L Hemoglobin A1c Lactic Acid Calcium Phosphorus AST Alkaline Phosphatase NT-Pro-B Natriuret Pep Total Protein Albumin Urine WBC (Auto) Crossmatch 10/10/18 10/10/18 10/10/18 05:45 07:28 12:07 WBC RBC Hgb Hct MCH RDW Plt Count Lymph % (Auto) [place] % (Auto) Lymph # [place] # Eos # Baso # Seg Neutrophils % Seg Neuts % (Manual) Lymphocytes % (Manual) Seg Neutrophils # Seg Neutrophils # Man Lymphocytes # (Manual) PT INR APTT Heparin Anti-Xa Level POC ABG pH POC ABG pCO2 POC ABG pO2 Sodium 146 H D Potassium Chloride 111.2 H Carbon Dioxide BUN 21 H Creatinine 1.8 H Glucose 44 L POC Glucose 114 H 49 L Hemoglobin A1c Lactic Acid Calcium 7.4 L Phosphorus AST Alkaline Phosphatase NT-Pro-B Natriuret Pep Total Protein Albumin Urine WBC (Auto) Crossmatch 10/10/18 10/10/18 10/10/18 12:37 18:02 20:47 WBC RBC Hgb Hct MCH RDW Plt Count Lymph % (Auto) [place] % (Auto) Lymph # [place] # Eos # Baso # Seg Neutrophils % Seg Neuts % (Manual) Lymphocytes % (Manual) Seg Neutrophils # Seg Neutrophils # Man Lymphocytes # (Manual) PT INR APTT Heparin Anti-Xa Level POC ABG pH POC ABG pCO2 POC ABG pO2 Sodium Potassium Chloride Carbon Dioxide BUN Creatinine Glucose POC Glucose 142 H 49 L 162 H Hemoglobin A1c Lactic Acid Calcium Phosphorus AST Alkaline Phosphatase NT-Pro-B Natriuret Pep Total Protein Albumin Urine WBC (Auto) Crossmatch 10/10/18 10/10/18 10/10/18 21:45 22:19 23:50 WBC RBC Hgb Hct MCH RDW Plt Count Lymph % (Auto) [place] % (Auto) Lymph # [place] # Eos # Baso # Seg Neutrophils % Seg Neuts % (Manual) Lymphocytes % (Manual) Seg Neutrophils # Seg Neutrophils # Man Lymphocytes # (Manual) PT INR APTT Heparin Anti-Xa Level POC ABG pH 7.334 L POC ABG pCO2 47.0 H POC ABG pO2 53 L 79 L Sodium Potassium Chloride Carbon Dioxide BUN Creatinine Glucose POC Glucose 185 H Hemoglobin A1c Lactic Acid Calcium Phosphorus AST Alkaline Phosphatase NT-Pro-B Natriuret Pep Total Protein Albumin Urine WBC (Auto) Crossmatch 10/11/18 10/11/18 10/11/18 05:00 06:41 07:17 WBC RBC Hgb Hct MCH RDW Plt Count Lymph % (Auto) [place] % (Auto) Lymph # [place] # Eos # Baso # Seg Neutrophils % Seg Neuts % (Manual) Lymphocytes % (Manual) Seg Neutrophils # Seg Neutrophils # Man Lymphocytes # (Manual) PT INR APTT Heparin Anti-Xa Level POC ABG pH POC ABG pCO2 POC ABG pO2 Sodium Potassium Chloride Carbon Dioxide BUN Creatinine 1.7 H Glucose 43 L POC Glucose 48 L 129 H Hemoglobin A1c Lactic Acid Calcium 7.7 L Phosphorus AST Alkaline Phosphatase NT-Pro-B Natriuret Pep Total Protein Albumin Urine WBC (Auto) Crossmatch 10/11/18 10/11/18 10/11/18 11:14 13:32 14:25 WBC RBC 3.32 L Hgb 8.2 L Hct 26.4 L MCH 25 L RDW 21.6 H Plt Count Lymph % (Auto) [place] % (Auto) Lymph # [place] # Eos # Baso # Seg Neutrophils % Seg Neuts % (Manual) Lymphocytes % (Manual) Seg Neutrophils # Seg Neutrophils # Man Lymphocytes # (Manual) PT 21.7 H INR 1.76 H APTT 50.5 H Heparin Anti-Xa Level POC ABG pH POC ABG pCO2 POC ABG pO2 Sodium Potassium Chloride Carbon Dioxide BUN Creatinine Glucose POC Glucose 138 H Hemoglobin A1c Lactic Acid Calcium Phosphorus AST Alkaline Phosphatase NT-Pro-B Natriuret Pep Total Protein Albumin Urine WBC (Auto) Crossmatch 10/11/18 10/11/18 10/11/18 14:25 15:41 17:31 WBC RBC Hgb Hct MCH RDW Plt Count Lymph % (Auto) [place] % (Auto) Lymph # [place] # Eos # Baso # Seg Neutrophils % Seg Neuts % (Manual) Lymphocytes % (Manual) Seg Neutrophils # Seg Neutrophils # Man Lymphocytes # (Manual) PT 20.6 H INR 1.65 H APTT 54.9 H Heparin Anti-Xa Level POC ABG pH POC ABG pCO2 POC ABG pO2 53 L Sodium Potassium Chloride Carbon Dioxide BUN Creatinine Glucose POC Glucose 133 H Hemoglobin A1c Lactic Acid Calcium Phosphorus AST Alkaline Phosphatase NT-Pro-B Natriuret Pep Total Protein Albumin Urine WBC (Auto) Crossmatch 10/12/18 10/12/18 10/12/18 00:30 03:56 04:25 WBC RBC Hgb Hct MCH RDW Plt Count Lymph % (Auto) [place] % (Auto) Lymph # [place] # Eos # Baso # Seg Neutrophils % Seg Neuts % (Manual) Lymphocytes % (Manual) Seg Neutrophils # Seg Neutrophils # Man Lymphocytes # (Manual) PT INR APTT Heparin Anti-Xa Level POC ABG pH 7.514 H POC ABG pCO2 31.2 L POC ABG pO2 Sodium Potassium Chloride Carbon Dioxide BUN Creatinine 1.6 H Glucose 287 H POC Glucose 353 H Hemoglobin A1c Lactic Acid Calcium 8.0 L Phosphorus AST Alkaline Phosphatase NT-Pro-B Natriuret Pep Total Protein Albumin Urine WBC (Auto) Crossmatch 10/12/18 10/12/18 10/12/18 04:49 12:13 17:53 WBC RBC Hgb Hct MCH RDW Plt Count Lymph % (Auto) [place] % (Auto) Lymph # [place] # Eos # Baso # Seg Neutrophils % Seg Neuts % (Manual) Lymphocytes % (Manual) Seg Neutrophils # Seg Neutrophils # Man Lymphocytes # (Manual) PT INR APTT Heparin Anti-Xa Level POC ABG pH POC ABG pCO2 POC ABG pO2 Sodium Potassium Chloride Carbon Dioxide BUN Creatinine Glucose POC Glucose 297 H 290 H 211 H Hemoglobin A1c Lactic Acid Calcium Phosphorus AST Alkaline Phosphatase NT-Pro-B Natriuret Pep Total Protein Albumin Urine WBC (Auto) Crossmatch 10/12/18 10/12/18 10/13/18 18:57 21:35 04:50 WBC 11.8 H RBC 3.08 L Hgb 7.4 L Hct 24.2 L MCH 24 L RDW 21.5 H Plt Count Lymph % (Auto) [place] % (Auto) Lymph # [place] # Eos # Baso # Seg Neutrophils % Seg Neuts % (Manual) Lymphocytes % (Manual) Seg Neutrophils # Seg Neutrophils # Man Lymphocytes # (Manual) PT INR APTT Heparin Anti-Xa Level 1.74 H POC ABG pH 7.497 H POC ABG pCO2 33.2 L POC ABG pO2 71 L Sodium Potassium Chloride Carbon Dioxide BUN Creatinine Glucose POC Glucose Hemoglobin A1c Lactic Acid Calcium Phosphorus AST Alkaline Phosphatase NT-Pro-B Natriuret Pep Total Protein Albumin Urine WBC (Auto) Crossmatch 10/13/18 10/13/18 10/13/18 05:25 05:25 05:37 WBC 12.1 H RBC 3.02 L Hgb 7.4 L Hct 23.7 L MCH 25 L RDW 21.0 H Plt Count Lymph % (Auto) 9.6 L [place] % (Auto) 10.0 H Lymph # [place] # 1.2 H Eos # Baso # Seg Neutrophils % 76.2 H Seg Neuts % (Manual) Lymphocytes % (Manual) Seg Neutrophils # 9.2 H Seg Neutrophils # Man Lymphocytes # (Manual) PT INR APTT Heparin Anti-Xa Level POC ABG pH POC ABG pCO2 POC ABG pO2 Sodium Potassium Chloride Carbon Dioxide BUN Creatinine 1.6 H Glucose 175 H POC Glucose 165 H Hemoglobin A1c Lactic Acid Calcium 8.3 L Phosphorus AST Alkaline Phosphatase NT-Pro-B Natriuret Pep Total Protein Albumin Urine WBC (Auto) Crossmatch 10/13/18 10/13/18 10/13/18 06:45 11:12 17:19 WBC RBC Hgb Hct MCH RDW Plt Count Lymph % (Auto) [place] % (Auto) Lymph # [place] # Eos # Baso # Seg Neutrophils % Seg Neuts % (Manual) Lymphocytes % (Manual) Seg Neutrophils # Seg Neutrophils # Man Lymphocytes # (Manual) PT 17.4 H INR 1.34 H APTT Heparin Anti-Xa Level POC ABG pH POC ABG pCO2 POC ABG pO2 Sodium Potassium Chloride Carbon Dioxide BUN Creatinine Glucose POC Glucose 223 H 129 H Hemoglobin A1c Lactic Acid Calcium Phosphorus AST Alkaline Phosphatase NT-Pro-B Natriuret Pep Total Protein Albumin Urine WBC (Auto) Crossmatch 10/13/18 10/14/18 10/14/18 23:39 05:01 06:14 WBC RBC Hgb Hct MCH RDW Plt Count Lymph % (Auto) [place] % (Auto) Lymph # [place] # Eos # Baso # Seg Neutrophils % Seg Neuts % (Manual) Lymphocytes % (Manual) Seg Neutrophils # Seg Neutrophils # Man Lymphocytes # (Manual) PT INR APTT Heparin Anti-Xa Level POC ABG pH POC ABG pCO2 POC ABG pO2 Sodium Potassium Chloride Carbon Dioxide BUN Creatinine 1.5 H Glucose 264 H POC Glucose 171 H 226 H Hemoglobin A1c Lactic Acid Calcium 8.0 L Phosphorus AST Alkaline Phosphatase NT-Pro-B Natriuret Pep Total Protein Albumin Urine WBC (Auto) Crossmatch 10/14/18 10/14/18 10/14/18 06:14 12:24 19:33 WBC RBC Hgb Hct MCH RDW Plt Count Lymph % (Auto) [place] % (Auto) Lymph # [place] # Eos # Baso # Seg Neutrophils % Seg Neuts % (Manual) Lymphocytes % (Manual) Seg Neutrophils # Seg Neutrophils # Man Lymphocytes # (Manual) PT 22.1 H INR 1.80 H APTT Heparin Anti-Xa Level POC ABG pH POC ABG pCO2 POC ABG pO2 Sodium Potassium Chloride Carbon Dioxide BUN Creatinine Glucose POC Glucose 403 H 164 H Hemoglobin A1c Lactic Acid Calcium Phosphorus AST Alkaline Phosphatase NT-Pro-B Natriuret Pep Total Protein Albumin Urine WBC (Auto) Crossmatch 10/15/18 10/15/18 10/15/18 00:29 06:03 07:00 WBC RBC Hgb Hct MCH RDW Plt Count Lymph % (Auto) [place] % (Auto) Lymph # [place] # Eos # Baso # Seg Neutrophils % Seg Neuts % (Manual) Lymphocytes % (Manual) Seg Neutrophils # Seg Neutrophils # Man Lymphocytes # (Manual) PT INR APTT Heparin Anti-Xa Level POC ABG pH POC ABG pCO2 POC ABG pO2 Sodium Potassium Chloride Carbon Dioxide BUN 20 H Creatinine 1.7 H Glucose 308 H POC Glucose 237 H 282 H Hemoglobin A1c Lactic Acid Calcium 7.6 L Phosphorus AST Alkaline Phosphatase NT-Pro-B Natriuret Pep Total Protein Albumin Urine WBC (Auto) Crossmatch 10/15/18 10/15/18 10/15/18 07:00 08:03 10:27 WBC RBC Hgb 5.8 L* Hct 18.5 L* MCH RDW Plt Count Lymph % (Auto) [place] % (Auto) Lymph # [place] # Eos # Baso # Seg Neutrophils % Seg Neuts % (Manual) Lymphocytes % (Manual) Seg Neutrophils # Seg Neutrophils # Man Lymphocytes # (Manual) PT 46.1 H INR 4.52 H APTT Heparin Anti-Xa Level 0.25 L POC ABG pH POC ABG pCO2 POC ABG pO2 Sodium Potassium Chloride Carbon Dioxide BUN Creatinine Glucose POC Glucose Hemoglobin A1c Lactic Acid Calcium Phosphorus AST Alkaline Phosphatase NT-Pro-B Natriuret Pep Total Protein Albumin Urine WBC (Auto) Crossmatch See Detail 10/15/18 10/15/18 10/16/18 14:03 15:30 10:18 WBC RBC Hgb Hct MCH RDW Plt Count Lymph % (Auto) [place] % (Auto) Lymph # [place] # Eos # Baso # Seg Neutrophils % Seg Neuts % (Manual) Lymphocytes % (Manual) Seg Neutrophils # Seg Neutrophils # Man Lymphocytes # (Manual) PT 53.8 H INR 5.48 H* APTT Heparin Anti-Xa Level POC ABG pH POC ABG pCO2 POC ABG pO2 Sodium Potassium Chloride Carbon Dioxide BUN Creatinine Glucose POC Glucose 336 H 259 H Hemoglobin A1c Lactic Acid Calcium Phosphorus AST Alkaline Phosphatase NT-Pro-B Natriuret Pep Total Protein Albumin Urine WBC (Auto) Crossmatch 10/16/18 10/16/18 10/16/18 10:18 10:18 13:03 WBC 14.8 H RBC 3.03 L Hgb 8.2 L Hct 24.9 L D MCH 27 L RDW 19.2 H Plt Count Lymph % (Auto) 5.7 L [place] % (Auto) Lymph # 0.8 L [place] # 1.1 H Eos # Baso # 0.2 H Seg Neutrophils % 84.3 H Seg Neuts % (Manual) Lymphocytes % (Manual) Seg Neutrophils # 12.5 H Seg Neutrophils # Man Lymphocytes # (Manual) PT INR APTT Heparin Anti-Xa Level POC ABG pH POC ABG pCO2 POC ABG pO2 Sodium Potassium Chloride Carbon Dioxide 20 L BUN 21 H Creatinine 1.5 H Glucose 326 H POC Glucose 329 H Hemoglobin A1c Lactic Acid Calcium 7.8 L Phosphorus AST Alkaline Phosphatase NT-Pro-B Natriuret Pep Total Protein Albumin Urine WBC (Auto) Crossmatch 10/16/18 10/17/18 10/17/18 13:27 00:35 05:00 WBC RBC Hgb Hct MCH RDW Plt Count Lymph % (Auto) [place] % (Auto) Lymph # [place] # Eos # Baso # Seg Neutrophils % Seg Neuts % (Manual) Lymphocytes % (Manual) Seg Neutrophils # Seg Neutrophils # Man Lymphocytes # (Manual) PT 55.4 H 60.2 H INR 5.68 H* 6.30 H* APTT Heparin Anti-Xa Level POC ABG pH POC ABG pCO2 POC ABG pO2 Sodium Potassium Chloride Carbon Dioxide BUN Creatinine Glucose POC Glucose 407 H Hemoglobin A1c Lactic Acid Calcium Phosphorus AST Alkaline Phosphatase NT-Pro-B Natriuret Pep Total Protein Albumin Urine WBC (Auto) Crossmatch 10/17/18 10/17/18 10/17/18 05:00 05:00 05:29 WBC 11.6 H RBC 2.99 L Hgb 8.0 L Hct 24.2 L MCH 27 L RDW 19.2 H Plt Count Lymph % (Auto) [place] % (Auto) Lymph # [place] # Eos # Baso # Seg Neutrophils % Seg Neuts % (Manual) 87.0 H Lymphocytes % (Manual) 9.0 L Seg Neutrophils # Seg Neutrophils # Man 10.1 H Lymphocytes # (Manual) 1.0 L PT INR APTT Heparin Anti-Xa Level POC ABG pH POC ABG pCO2 POC ABG pO2 Sodium Potassium 3.4 L D Chloride Carbon Dioxide BUN Creatinine 1.4 H Glucose 170 H POC Glucose 156 H Hemoglobin A1c Lactic Acid Calcium 7.6 L Phosphorus AST Alkaline Phosphatase NT-Pro-B Natriuret Pep Total Protein 5.4 L Albumin 2.2 L Urine WBC (Auto) Crossmatch 10/17/18 10/17/18 10/18/18 11:59 17:06 00:21 WBC RBC Hgb Hct MCH RDW Plt Count Lymph % (Auto) [place] % (Auto) Lymph # [place] # Eos # Baso # Seg Neutrophils % Seg Neuts % (Manual) Lymphocytes % (Manual) Seg Neutrophils # Seg Neutrophils # Man Lymphocytes # (Manual) PT INR APTT Heparin Anti-Xa Level POC ABG pH POC ABG pCO2 POC ABG pO2 Sodium Potassium Chloride Carbon Dioxide BUN Creatinine Glucose POC Glucose 389 H 151 H 355 H Hemoglobin A1c Lactic Acid Calcium Phosphorus AST Alkaline Phosphatase NT-Pro-B Natriuret Pep Total Protein Albumin Urine WBC (Auto) Crossmatch 10/18/18 10/18/18 10/18/18 04:17 04:17 04:17 WBC RBC 3.01 L Hgb 8.1 L Hct 24.6 L MCH 27 L RDW 19.7 H Plt Count Lymph % (Auto) 12.7 L [place] % (Auto) Lymph # [place] # Eos # Baso # Seg Neutrophils % 76.3 H Seg Neuts % (Manual) Lymphocytes % (Manual) Seg Neutrophils # 8.2 H Seg Neutrophils # Man Lymphocytes # (Manual) PT 39.5 H INR 3.72 H APTT Heparin Anti-Xa Level POC ABG pH POC ABG pCO2 POC ABG pO2 Sodium Potassium 3.5 L Chloride Carbon Dioxide BUN Creatinine 1.5 H Glucose 115 H POC Glucose Hemoglobin A1c Lactic Acid Calcium 7.4 L Phosphorus AST Alkaline Phosphatase NT-Pro-B Natriuret Pep Total Protein Albumin Urine WBC (Auto) Crossmatch 10/18/18 10/18/18 10/18/18 06:45 13:39 17:12 WBC RBC Hgb Hct MCH RDW Plt Count Lymph % (Auto) [place] % (Auto) Lymph # [place] # Eos # Baso # Seg Neutrophils % Seg Neuts % (Manual) Lymphocytes % (Manual) Seg Neutrophils # Seg Neutrophils # Man Lymphocytes # (Manual) PT INR APTT Heparin Anti-Xa Level POC ABG pH POC ABG pCO2 POC ABG pO2 Sodium Potassium Chloride Carbon Dioxide BUN Creatinine Glucose POC Glucose 170 H 415 H 377 H Hemoglobin A1c Lactic Acid Calcium Phosphorus AST Alkaline Phosphatase NT-Pro-B Natriuret Pep Total Protein Albumin Urine WBC (Auto) Crossmatch 10/19/18 10/19/18 10/19/18 00:48 05:35 05:52 WBC RBC 2.84 L Hgb 7.7 L Hct 23.2 L MCH 27 L RDW 19.8 H Plt Count Lymph % (Auto) 11.0 L [place] % (Auto) Lymph # 1.1 L [place] # Eos # Baso # Seg Neutrophils % 78.5 H Seg Neuts % (Manual) Lymphocytes % (Manual) Seg Neutrophils # 8.1 H Seg Neutrophils # Man Lymphocytes # (Manual) PT INR APTT Heparin Anti-Xa Level POC ABG pH POC ABG pCO2 POC ABG pO2 Sodium Potassium Chloride Carbon Dioxide BUN Creatinine Glucose POC Glucose 308 H 116 H Hemoglobin A1c Lactic Acid Calcium Phosphorus AST Alkaline Phosphatase NT-Pro-B Natriuret Pep Total Protein Albumin Urine WBC (Auto) Crossmatch 10/19/18 10/19/18 10/19/18 05:52 07:12 09:41 WBC RBC Hgb 8.1 L Hct 24.6 L MCH RDW Plt Count Lymph % (Auto) [place] % (Auto) Lymph # [place] # Eos # Baso # Seg Neutrophils % Seg Neuts % (Manual) Lymphocytes % (Manual) Seg Neutrophils # Seg Neutrophils # Man Lymphocytes # (Manual) PT 18.1 H INR 1.40 H APTT Heparin Anti-Xa Level POC ABG pH POC ABG pCO2 POC ABG pO2 Sodium Potassium Chloride Carbon Dioxide BUN 21 H Creatinine 1.6 H Glucose 128 H POC Glucose Hemoglobin A1c Lactic Acid Calcium 7.7 L Phosphorus AST Alkaline Phosphatase NT-Pro-B Natriuret Pep Total Protein Albumin Urine WBC (Auto) Crossmatch 10/19/18 10/19/18 10/19/18 09:41 11:46 16:12 WBC RBC Hgb Hct MCH RDW Plt Count Lymph % (Auto) [place] % (Auto) Lymph # [place] # Eos # Baso # Seg Neutrophils % Seg Neuts % (Manual) Lymphocytes % (Manual) Seg Neutrophils # Seg Neutrophils # Man Lymphocytes # (Manual) PT 17.7 H INR 1.36 H APTT Heparin Anti-Xa Level POC ABG pH POC ABG pCO2 POC ABG pO2 Sodium Potassium Chloride Carbon Dioxide BUN Creatinine Glucose POC Glucose 212 H 260 H Hemoglobin A1c Lactic Acid Calcium Phosphorus AST Alkaline Phosphatase NT-Pro-B Natriuret Pep Total Protein Albumin Urine WBC (Auto) Crossmatch 10/19/18 10/19/18 10/19/18 19:56 22:09 Unknown WBC RBC Hgb Hct MCH RDW Plt Count Lymph % (Auto) [place] % (Auto) Lymph # [place] # Eos # Baso # Seg Neutrophils % Seg Neuts % (Manual) Lymphocytes % (Manual) Seg Neutrophils # Seg Neutrophils # Man Lymphocytes # (Manual) PT INR APTT Heparin Anti-Xa Level 0.19 L POC ABG pH 7.458 H POC ABG pCO2 POC ABG pO2 63 L Sodium Potassium Chloride Carbon Dioxide BUN Creatinine Glucose POC Glucose 216 H Hemoglobin A1c Lactic Acid Calcium Phosphorus AST Alkaline Phosphatase NT-Pro-B Natriuret Pep Total Protein Albumin Urine WBC (Auto) Crossmatch 10/20/18 10/20/18 10/20/18 03:00 03:00 03:00 WBC 14.8 H RBC 2.81 L Hgb 7.5 L Hct 23.1 L MCH 27 L RDW 20.0 H Plt Count Lymph % (Auto) 11.5 L [place] % (Auto) Lymph # [place] # 0.9 H Eos # Baso # Seg Neutrophils % 79.7 H Seg Neuts % (Manual) Lymphocytes % (Manual) Seg Neutrophils # 11.8 H Seg Neutrophils # Man Lymphocytes # (Manual) PT 16.9 H INR 1.29 H APTT Heparin Anti-Xa Level 0.24 L POC ABG pH POC ABG pCO2 POC ABG pO2 Sodium Potassium Chloride 97.8 L Carbon Dioxide BUN 20 H Creatinine 1.5 H Glucose 206 H POC Glucose Hemoglobin A1c Lactic Acid Calcium 7.8 L Phosphorus AST Alkaline Phosphatase NT-Pro-B Natriuret Pep Total Protein Albumin Urine WBC (Auto) Crossmatch 10/20/18 10/20/18 10/20/18 06:59 10:20 10:59 WBC RBC Hgb Hct MCH RDW Plt Count Lymph % (Auto) [place] % (Auto) Lymph # [place] # Eos # Baso # Seg Neutrophils % Seg Neuts % (Manual) Lymphocytes % (Manual) Seg Neutrophils # Seg Neutrophils # Man Lymphocytes # (Manual) PT 15.5 H INR 1.16 H APTT Heparin Anti-Xa Level < 0.10 L POC ABG pH POC ABG pCO2 POC ABG pO2 Sodium Potassium Chloride Carbon Dioxide BUN Creatinine Glucose POC Glucose 348 H 227 H Hemoglobin A1c Lactic Acid Calcium Phosphorus AST Alkaline Phosphatase NT-Pro-B Natriuret Pep Total Protein Albumin Urine WBC (Auto) Crossmatch 10/20/18 10/20/18 10/21/18 16:15 17:14 00:53 WBC RBC Hgb Hct MCH RDW Plt Count Lymph % (Auto) [place] % (Auto) Lymph # [place] # Eos # Baso # Seg Neutrophils % Seg Neuts % (Manual) Lymphocytes % (Manual) Seg Neutrophils # Seg Neutrophils # Man Lymphocytes # (Manual) PT INR APTT Heparin Anti-Xa Level 0.24 L POC ABG pH POC ABG pCO2 POC ABG pO2 Sodium Potassium Chloride Carbon Dioxide BUN Creatinine Glucose POC Glucose 279 H 136 H Hemoglobin A1c Lactic Acid Calcium Phosphorus AST Alkaline Phosphatase NT-Pro-B Natriuret Pep Total Protein Albumin Urine WBC (Auto) Crossmatch 10/21/18 10/21/18 10/21/18 05:45 05:45 05:45 WBC 15.8 H RBC 2.79 L Hgb 7.5 L Hct 22.9 L MCH 27 L RDW 19.8 H Plt Count Lymph % (Auto) 7.2 L [place] % (Auto) Lymph # 1.1 L [place] # Eos # Baso # Seg Neutrophils % 85.7 H Seg Neuts % (Manual) Lymphocytes % (Manual) Seg Neutrophils # 13.5 H Seg Neutrophils # Man Lymphocytes # (Manual) PT 16.9 H INR 1.29 H APTT Heparin Anti-Xa Level POC ABG pH POC ABG pCO2 POC ABG pO2 Sodium Potassium Chloride Carbon Dioxide BUN 18 H Creatinine 1.4 H Glucose 339 H POC Glucose Hemoglobin A1c Lactic Acid Calcium 8.3 L Phosphorus AST Alkaline Phosphatase NT-Pro-B Natriuret Pep Total Protein Albumin Urine WBC (Auto) Crossmatch 10/21/18 10/21/18 10/21/18 08:00 10:13 11:00 WBC RBC Hgb Hct MCH RDW Plt Count Lymph % (Auto) [place] % (Auto) Lymph # [place] # Eos # Baso # Seg Neutrophils % Seg Neuts % (Manual) Lymphocytes % (Manual) Seg Neutrophils # Seg Neutrophils # Man Lymphocytes # (Manual) PT INR APTT Heparin Anti-Xa Level POC ABG pH POC ABG pCO2 POC ABG pO2 Sodium Potassium Chloride Carbon Dioxide BUN Creatinine Glucose POC Glucose 398 H 295 H Hemoglobin A1c Lactic Acid Calcium Phosphorus AST Alkaline Phosphatase NT-Pro-B Natriuret Pep Total Protein Albumin Urine WBC (Auto) 125.0 H Crossmatch 10/21/18 10/21/18 10/21/18 11:18 17:20 17:52 WBC RBC Hgb Hct MCH RDW Plt Count Lymph % (Auto) [place] % (Auto) Lymph # [place] # Eos # Baso # Seg Neutrophils % Seg Neuts % (Manual) Lymphocytes % (Manual) Seg Neutrophils # Seg Neutrophils # Man Lymphocytes # (Manual) PT 17.2 H INR 1.32 H APTT 40.0 H Heparin Anti-Xa Level POC ABG pH POC ABG pCO2 POC ABG pO2 Sodium Potassium Chloride Carbon Dioxide BUN Creatinine Glucose POC Glucose 235 H 271 H Hemoglobin A1c Lactic Acid Calcium Phosphorus AST Alkaline Phosphatase NT-Pro-B Natriuret Pep Total Protein Albumin Urine WBC (Auto) Crossmatch 10/21/18 10/22/18 10/22/18 23:41 00:47 04:39 WBC 16.1 H RBC 2.69 L Hgb 6.7 L 7.3 L Hct 19.8 L* 22.3 L MCH 27 L RDW 20.4 H Plt Count Lymph % (Auto) 6.9 L [place] % (Auto) Lymph # 1.1 L [place] # 1.0 H Eos # Baso # Seg Neutrophils % 85.3 H Seg Neuts % (Manual) Lymphocytes % (Manual) Seg Neutrophils # 13.8 H Seg Neutrophils # Man Lymphocytes # (Manual) PT INR APTT Heparin Anti-Xa Level POC ABG pH POC ABG pCO2 POC ABG pO2 Sodium Potassium Chloride Carbon Dioxide BUN Creatinine Glucose POC Glucose 157 H Hemoglobin A1c Lactic Acid Calcium Phosphorus AST Alkaline Phosphatase NT-Pro-B Natriuret Pep Total Protein Albumin Urine WBC (Auto) Crossmatch 10/22/18 10/22/18 10/22/18 04:39 04:39 04:39 WBC RBC Hgb Hct MCH RDW Plt Count Lymph % (Auto) [place] % (Auto) Lymph # [place] # Eos # Baso # Seg Neutrophils % Seg Neuts % (Manual) Lymphocytes % (Manual) Seg Neutrophils # Seg Neutrophils # Man Lymphocytes # (Manual) PT 20.3 H INR 1.62 H APTT Heparin Anti-Xa Level 0.12 L POC ABG pH POC ABG pCO2 POC ABG pO2 Sodium Potassium Chloride Carbon Dioxide BUN 20 H Creatinine 1.7 H Glucose 255 H POC Glucose Hemoglobin A1c Lactic Acid Calcium 8.1 L Phosphorus AST Alkaline Phosphatase NT-Pro-B Natriuret Pep Total Protein Albumin Urine WBC (Auto) Crossmatch See Detail 10/22/18 10/22/18 10/22/18 05:09 11:20 11:20 WBC RBC Hgb 7.4 L Hct 21.9 L MCH RDW Plt Count 457 H Lymph % (Auto) [place] % (Auto) Lymph # [place] # Eos # Baso # Seg Neutrophils % Seg Neuts % (Manual) Lymphocytes % (Manual) Seg Neutrophils # Seg Neutrophils # Man Lymphocytes # (Manual) PT 20.8 H INR 1.67 H APTT 71.0 H* Heparin Anti-Xa Level 0.20 L POC ABG pH POC ABG pCO2 POC ABG pO2 Sodium Potassium Chloride Carbon Dioxide BUN Creatinine Glucose POC Glucose 297 H Hemoglobin A1c Lactic Acid Calcium Phosphorus AST Alkaline Phosphatase NT-Pro-B Natriuret Pep Total Protein Albumin Urine WBC (Auto) Crossmatch 10/22/18 10/22/18 10/22/18 12:09 16:51 17:11 WBC RBC Hgb Hct MCH RDW Plt Count Lymph % (Auto) [place] % (Auto) Lymph # [place] # Eos # Baso # Seg Neutrophils % Seg Neuts % (Manual) Lymphocytes % (Manual) Seg Neutrophils # Seg Neutrophils # Man Lymphocytes # (Manual) PT INR APTT Heparin Anti-Xa Level POC ABG pH POC ABG pCO2 POC ABG pO2 Sodium Potassium Chloride Carbon Dioxide BUN Creatinine Glucose 115 H POC Glucose 125 H < 40 L Hemoglobin A1c Lactic Acid Calcium Phosphorus AST Alkaline Phosphatase NT-Pro-B Natriuret Pep Total Protein Albumin Urine WBC (Auto) Crossmatch 10/22/18 10/23/18 10/23/18 17:13 00:08 06:19 WBC RBC Hgb Hct MCH RDW Plt Count Lymph % (Auto) [place] % (Auto) Lymph # [place] # Eos # Baso # Seg Neutrophils % Seg Neuts % (Manual) Lymphocytes % (Manual) Seg Neutrophils # Seg Neutrophils # Man Lymphocytes # (Manual) PT INR APTT Heparin Anti-Xa Level POC ABG pH POC ABG pCO2 POC ABG pO2 Sodium Potassium Chloride Carbon Dioxide BUN Creatinine Glucose POC Glucose 126 H 192 H 249 H Hemoglobin A1c Lactic Acid Calcium Phosphorus AST Alkaline Phosphatase NT-Pro-B Natriuret Pep Total Protein Albumin Urine WBC (Auto) Crossmatch 10/23/18 10/23/18 10/23/18 07:21 07:21 07:21 WBC 14.4 H RBC 3.29 L Hgb 9.2 L Hct 27.6 L MCH RDW 20.5 H Plt Count 505 H Lymph % (Auto) 8.1 L [place] % (Auto) Lymph # [place] # 1.0 H Eos # 0.6 H Baso # Seg Neutrophils % 80.0 H Seg Neuts % (Manual) Lymphocytes % (Manual) Seg Neutrophils # 11.5 H Seg Neutrophils # Man Lymphocytes # (Manual) PT 21.6 H INR 1.75 H APTT Heparin Anti-Xa Level POC ABG pH POC ABG pCO2 POC ABG pO2 Sodium Potassium Chloride Carbon Dioxide BUN 18 H Creatinine 1.5 H Glucose 308 H POC Glucose Hemoglobin A1c Lactic Acid Calcium Phosphorus AST Alkaline Phosphatase NT-Pro-B Natriuret Pep Total Protein Albumin Urine WBC (Auto) Crossmatch 10/23/18 10/23/18 10/23/18 10:34 11:56 17:07 WBC RBC Hgb Hct MCH RDW Plt Count Lymph % (Auto) [place] % (Auto) Lymph # [place] # Eos # Baso # Seg Neutrophils % Seg Neuts % (Manual) Lymphocytes % (Manual) Seg Neutrophils # Seg Neutrophils # Man Lymphocytes # (Manual) PT INR APTT Heparin Anti-Xa Level POC ABG pH POC ABG pCO2 POC ABG pO2 Sodium Potassium Chloride Carbon Dioxide BUN Creatinine Glucose POC Glucose > 500 H 440 H 387 H Hemoglobin A1c Lactic Acid Calcium Phosphorus AST Alkaline Phosphatase NT-Pro-B Natriuret Pep Total Protein Albumin Urine WBC (Auto) Crossmatch 10/23/18 10/24/18 10/24/18 23:44 06:18 06:39 WBC RBC Hgb 7.9 L Hct 24.3 L MCH RDW Plt Count 522 H Lymph % (Auto) [place] % (Auto) Lymph # [place] # Eos # Baso # Seg Neutrophils % Seg Neuts % (Manual) Lymphocytes % (Manual) Seg Neutrophils # Seg Neutrophils # Man Lymphocytes # (Manual) PT INR APTT Heparin Anti-Xa Level POC ABG pH POC ABG pCO2 POC ABG pO2 Sodium Potassium Chloride Carbon Dioxide BUN Creatinine Glucose POC Glucose 172 H 154 H Hemoglobin A1c Lactic Acid Calcium Phosphorus AST Alkaline Phosphatase NT-Pro-B Natriuret Pep Total Protein Albumin Urine WBC (Auto) Crossmatch 10/24/18 10/24/18 08:05 11:12 WBC RBC Hgb Hct MCH RDW Plt Count Lymph % (Auto) [place] % (Auto) Lymph # [place] # Eos # Baso # Seg Neutrophils % Seg Neuts % (Manual) Lymphocytes % (Manual) Seg Neutrophils # Seg Neutrophils # Man Lymphocytes # (Manual) PT 20.5 H INR 1.64 H APTT Heparin Anti-Xa Level POC ABG pH POC ABG pCO2 POC ABG pO2 Sodium Potassium Chloride Carbon Dioxide BUN Creatinine Glucose POC Glucose 203 H Hemoglobin A1c Lactic Acid Calcium Phosphorus AST Alkaline Phosphatase NT-Pro-B Natriuret Pep Total Protein Albumin Urine WBC (Auto) Crossmatch
--- NOTE | 2018-10-24 19:10 | Progress Note ---
Assessment and Plan Patient awake and resting on 2 litres O2. O2 saturation O2 saturation 100%. Patient says feeling better and breathng better. No acute respiratory distress. - Patient Problems (1) Acute respiratory failure with hypoxia Current Visit: Yes Status: Acute Plan to address problem: O2 2 litres via nasal canula. Albuterol/atrovent aerosol treatments q 6 hours. (2) Acute on chronic renal failure Current Visit: Yes Status: Acute Plan to address problem: Management as per nephrology. (3) Altered mental status Current Visit: Yes Status: Resolved Plan to address problem: Management as per primary care. (4) Heart failure with reduced ejection fraction Current Visit: Yes Status: Acute Plan to address problem: Management as per cardiology. (5) Diabetes Current Visit: Yes Status: Chronic Plan to address problem: Management as per primary care. (6) H/O mitral valve replacement with mechanical valve Current Visit: Yes Status: Chronic Plan to address problem: Management as per cardiology. Subjective Date of service: 10/24/18 Principal diagnosis: Ac hypoxemic resp failure; Seizures (?hypoglycemic); Ac encephalopathy(T/M) Interval history: Patient awake and resting on 2 litres O2. O2 saturation O2 saturation 100%. Patient says feeling better and breathng better. No acute respiratory distress. Objective Vital Signs - 12hr 10/24/18 10/24/18 10/24/18 09:17 10:00 11:35 Temperature Pulse Rate 90 91 H Respiratory Rate Blood Pressure 132/76 O2 Sat by Pulse Oximetry 10/24/18 10/24/18 10/24/18 12:15 14:38 16:46 Temperature 98.3 F 98.3 F Pulse Rate 90 90 93 H Respiratory 12 14 Rate Blood Pressure 114/72 114/72 132/77 O2 Sat by Pulse 98 100 Oximetry Constitutional: no acute distress, other (middle aged AAF, normocephalic and with mildly increased resp effort at rest) Eyes: non-icteric ENT: oropharynx moist, other (extubated) Neck: supple, no lymphadenopathy, no JVD Effort: mildly labored Ascultation: Bilateral: diminished breath sounds (bases), rales Percussion: Right: dull (base), Bilateral: not dull Cardiovascular: regular rate and rhythm, other (+ metalic valve click) Gastrointestinal: normoactive bowel sounds, soft, non-tender, non-distended, other (No HSM) Integumentary: normal Extremities: no cyanosis, no edema, pulses normal, no ischemia or petechiae Neurologic: non-focal exam (grossly), pupils equal and round, CN II-XII normal, motor strength normal and, other (somnolent) Psychiatric: other (flat affect) CBC and BMP: 10/24/18 06:39 10/23/18 07:21 ABG, PT/INR, D-dimer: ABG POC ABG pH 7.458 (7.35-7.45) H 10/19/18 19:56 POC ABG pCO2 37.9 (35-45) 10/19/18 19:56 POC ABG pO2 63 (80-105) L 10/19/18 19:56 POC ABG HCO3 26.8 (22-26 mml/L) 10/19/18 19:56 POC ABG Total CO2 28 (23-27mmol/L) 10/19/18 19:56 POC ABG O2 Sat 93 10/19/18 19:56 PT/INR, D-dimer PT 20.5 Sec. (12.2-14.9) H 10/24/18 08:05 INR 1.64 (0.87-1.13) H 10/24/18 08:05 Abnormal lab findings: Abnormal Labs 10/07/18 10/07/18 10/07/18 02:20 02:43 02:43 WBC RBC Hgb Hct MCH 25 L RDW 21.5 H Plt Count Lymph % (Auto) [place] % (Auto) Lymph # 0.9 L [place] # Eos # Baso # Seg Neutrophils % 78.4 H Seg Neuts % (Manual) Lymphocytes % (Manual) Seg Neutrophils # Seg Neutrophils # Man Lymphocytes # (Manual) PT INR APTT Heparin Anti-Xa Level POC ABG pH POC ABG pCO2 POC ABG pO2 Sodium Potassium Chloride 108.0 H Carbon Dioxide 21 L BUN Creatinine 1.5 H Glucose 115 H POC Glucose 136 H Hemoglobin A1c Lactic Acid Calcium Phosphorus AST 51 H Alkaline Phosphatase 257 H NT-Pro-B Natriuret Pep Total Protein Albumin Urine WBC (Auto) Crossmatch 10/07/18 10/07/18 10/07/18 02:43 04:32 05:12 WBC RBC Hgb Hct MCH RDW Plt Count Lymph % (Auto) [place] % (Auto) Lymph # [place] # Eos # Baso # Seg Neutrophils % Seg Neuts % (Manual) Lymphocytes % (Manual) Seg Neutrophils # Seg Neutrophils # Man Lymphocytes # (Manual) PT 25.4 H INR 2.14 H APTT Heparin Anti-Xa Level POC ABG pH POC ABG pCO2 33.6 L POC ABG pO2 69 L Sodium Potassium Chloride Carbon Dioxide BUN Creatinine Glucose POC Glucose Hemoglobin A1c Lactic Acid 2.40 H* Calcium Phosphorus AST Alkaline Phosphatase NT-Pro-B Natriuret Pep Total Protein Albumin Urine WBC (Auto) Crossmatch 10/07/18 10/07/18 10/07/18 06:28 18:39 20:26 WBC RBC Hgb Hct MCH RDW Plt Count Lymph % (Auto) [place] % (Auto) Lymph # [place] # Eos # Baso # Seg Neutrophils % Seg Neuts % (Manual) Lymphocytes % (Manual) Seg Neutrophils # Seg Neutrophils # Man Lymphocytes # (Manual) PT INR APTT Heparin Anti-Xa Level POC ABG pH POC ABG pCO2 POC ABG pO2 Sodium Potassium Chloride Carbon Dioxide BUN Creatinine Glucose POC Glucose 164 H 440 H > 500 H Hemoglobin A1c Lactic Acid Calcium Phosphorus AST Alkaline Phosphatase NT-Pro-B Natriuret Pep Total Protein Albumin Urine WBC (Auto) Crossmatch 10/07/18 10/07/18 10/07/18 20:28 21:53 22:08 WBC RBC Hgb Hct MCH RDW Plt Count Lymph % (Auto) [place] % (Auto) Lymph # [place] # Eos # Baso # Seg Neutrophils % Seg Neuts % (Manual) Lymphocytes % (Manual) Seg Neutrophils # Seg Neutrophils # Man Lymphocytes # (Manual) PT INR APTT Heparin Anti-Xa Level POC ABG pH POC ABG pCO2 POC ABG pO2 Sodium 136 L D Potassium 6.4 H* D Chloride Carbon Dioxide 10 L D BUN 30 H Creatinine 2.0 H Glucose 544 H* POC Glucose 483 H > 500 H Hemoglobin A1c Lactic Acid Calcium 7.0 L D Phosphorus AST Alkaline Phosphatase NT-Pro-B Natriuret Pep Total Protein Albumin Urine WBC (Auto) Crossmatch 10/07/18 10/07/18 10/07/18 22:08 22:08 22:56 WBC RBC Hgb Hct MCH RDW Plt Count Lymph % (Auto) [place] % (Auto) Lymph # [place] # Eos # Baso # Seg Neutrophils % Seg Neuts % (Manual) Lymphocytes % (Manual) Seg Neutrophils # Seg Neutrophils # Man Lymphocytes # (Manual) PT INR APTT Heparin Anti-Xa Level POC ABG pH POC ABG pCO2 POC ABG pO2 Sodium Potassium Chloride Carbon Dioxide BUN Creatinine Glucose POC Glucose 462 H Hemoglobin A1c 10.2 H Lactic Acid Calcium Phosphorus 7.40 H AST Alkaline Phosphatase NT-Pro-B Natriuret Pep Total Protein Albumin Urine WBC (Auto) Crossmatch 10/07/18 10/08/18 10/08/18 23:39 00:58 02:09 WBC RBC Hgb Hct MCH RDW Plt Count Lymph % (Auto) [place] % (Auto) Lymph # [place] # Eos # Baso # Seg Neutrophils % Seg Neuts % (Manual) Lymphocytes % (Manual) Seg Neutrophils # Seg Neutrophils # Man Lymphocytes # (Manual) PT INR APTT Heparin Anti-Xa Level POC ABG pH POC ABG pCO2 POC ABG pO2 Sodium Potassium Chloride Carbon Dioxide BUN Creatinine Glucose POC Glucose 396 H 375 H 285 H Hemoglobin A1c Lactic Acid Calcium Phosphorus AST Alkaline Phosphatase NT-Pro-B Natriuret Pep Total Protein Albumin Urine WBC (Auto) Crossmatch 10/08/18 10/08/18 10/08/18 03:10 03:33 04:05 WBC RBC Hgb Hct MCH RDW Plt Count Lymph % (Auto) [place] % (Auto) Lymph # [place] # Eos # Baso # Seg Neutrophils % Seg Neuts % (Manual) Lymphocytes % (Manual) Seg Neutrophils # Seg Neutrophils # Man Lymphocytes # (Manual) PT INR APTT Heparin Anti-Xa Level POC ABG pH 7.243 L POC ABG pCO2 33.8 L POC ABG pO2 126 H Sodium Potassium 5.3 H Chloride 110.7 H Carbon Dioxide 14 L BUN 33 H Creatinine 2.2 H Glucose 193 H POC Glucose 251 H Hemoglobin A1c Lactic Acid Calcium 7.0 L Phosphorus AST Alkaline Phosphatase 155 H NT-Pro-B Natriuret Pep Total Protein 5.2 L D Albumin 2.6 L Urine WBC (Auto) Crossmatch 10/08/18 10/08/18 10/08/18 04:05 04:05 04:09 WBC 11.8 H RBC 3.32 L Hgb 8.3 L Hct 27.5 L D MCH 25 L RDW 22.0 H Plt Count Lymph % (Auto) 6.8 L [place] % (Auto) 12.0 H Lymph # 0.8 L [place] # 1.4 H Eos # Baso # Seg Neutrophils % 80.6 H Seg Neuts % (Manual) Lymphocytes % (Manual) Seg Neutrophils # 9.5 H Seg Neutrophils # Man Lymphocytes # (Manual) PT INR APTT Heparin Anti-Xa Level POC ABG pH POC ABG pCO2 POC ABG pO2 Sodium Potassium Chloride Carbon Dioxide BUN Creatinine Glucose POC Glucose 175 H Hemoglobin A1c Lactic Acid 3.70 H* Calcium Phosphorus AST Alkaline Phosphatase NT-Pro-B Natriuret Pep Total Protein Albumin Urine WBC (Auto) Crossmatch 10/08/18 10/08/18 10/08/18 05:07 06:05 07:14 WBC RBC Hgb Hct MCH RDW Plt Count Lymph % (Auto) [place] % (Auto) Lymph # [place] # Eos # Baso # Seg Neutrophils % Seg Neuts % (Manual) Lymphocytes % (Manual) Seg Neutrophils # Seg Neutrophils # Man Lymphocytes # (Manual) PT INR APTT Heparin Anti-Xa Level POC ABG pH POC ABG pCO2 POC ABG pO2 Sodium Potassium Chloride Carbon Dioxide BUN Creatinine Glucose POC Glucose 125 H 122 H 147 H Hemoglobin A1c Lactic Acid Calcium Phosphorus AST Alkaline Phosphatase NT-Pro-B Natriuret Pep Total Protein Albumin Urine WBC (Auto) Crossmatch 10/08/18 10/08/18 10/08/18 07:22 08:09 08:47 WBC RBC Hgb Hct MCH RDW Plt Count Lymph % (Auto) [place] % (Auto) Lymph # [place] # Eos # Baso # Seg Neutrophils % Seg Neuts % (Manual) Lymphocytes % (Manual) Seg Neutrophils # Seg Neutrophils # Man Lymphocytes # (Manual) PT INR APTT Heparin Anti-Xa Level POC ABG pH POC ABG pCO2 POC ABG pO2 Sodium Potassium 5.2 H Chloride 112.4 H Carbon Dioxide 17 L BUN 32 H Creatinine 2.1 H Glucose 148 H POC Glucose 134 H 148 H Hemoglobin A1c Lactic Acid Calcium 6.6 L Phosphorus AST Alkaline Phosphatase NT-Pro-B Natriuret Pep Total Protein Albumin Urine WBC (Auto) Crossmatch 10/08/18 10/08/18 10/08/18 10:21 13:29 14:21 WBC RBC Hgb Hct MCH RDW Plt Count Lymph % (Auto) [place] % (Auto) Lymph # [place] # Eos # Baso # Seg Neutrophils % Seg Neuts % (Manual) Lymphocytes % (Manual) Seg Neutrophils # Seg Neutrophils # Man Lymphocytes # (Manual) PT INR APTT Heparin Anti-Xa Level POC ABG pH POC ABG pCO2 POC ABG pO2 Sodium Potassium Chloride Carbon Dioxide BUN Creatinine Glucose POC Glucose 115 H 109 H 118 H Hemoglobin A1c Lactic Acid Calcium Phosphorus AST Alkaline Phosphatase NT-Pro-B Natriuret Pep Total Protein Albumin Urine WBC (Auto) Crossmatch 10/08/18 10/08/18 10/08/18 15:27 17:00 17:00 WBC 11.3 H RBC 3.21 L Hgb 7.9 L Hct 25.7 L MCH 25 L RDW 21.8 H Plt Count Lymph % (Auto) 8.5 L [place] % (Auto) 7.7 H Lymph # 1.0 L [place] # 0.9 H Eos # Baso # Seg Neutrophils % 82.8 H Seg Neuts % (Manual) Lymphocytes % (Manual) Seg Neutrophils # 9.3 H Seg Neutrophils # Man Lymphocytes # (Manual) PT INR APTT Heparin Anti-Xa Level POC ABG pH POC ABG pCO2 POC ABG pO2 Sodium Potassium Chloride Carbon Dioxide BUN Creatinine Glucose POC Glucose 129 H Hemoglobin A1c Lactic Acid Calcium Phosphorus AST Alkaline Phosphatase NT-Pro-B Natriuret Pep 3097 H Total Protein Albumin Urine WBC (Auto) Crossmatch 10/08/18 10/08/18 10/08/18 17:07 17:12 18:22 WBC RBC Hgb Hct MCH RDW Plt Count Lymph % (Auto) [place] % (Auto) Lymph # [place] # Eos # Baso # Seg Neutrophils % Seg Neuts % (Manual) Lymphocytes % (Manual) Seg Neutrophils # Seg Neutrophils # Man Lymphocytes # (Manual) PT INR APTT Heparin Anti-Xa Level POC ABG pH 7.337 L POC ABG pCO2 32.0 L POC ABG pO2 130 H Sodium Potassium Chloride 115.5 H Carbon Dioxide 17 L BUN 30 H Creatinine 1.9 H Glucose 103 H POC Glucose 119 H Hemoglobin A1c Lactic Acid Calcium 6.9 L Phosphorus AST Alkaline Phosphatase NT-Pro-B Natriuret Pep Total Protein Albumin Urine WBC (Auto) Crossmatch 10/08/18 10/08/18 10/09/18 20:09 20:57 01:10 WBC RBC Hgb Hct MCH RDW Plt Count Lymph % (Auto) [place] % (Auto) Lymph # [place] # Eos # Baso # Seg Neutrophils % Seg Neuts % (Manual) Lymphocytes % (Manual) Seg Neutrophils # Seg Neutrophils # Man Lymphocytes # (Manual) PT INR APTT Heparin Anti-Xa Level POC ABG pH POC ABG pCO2 POC ABG pO2 Sodium Potassium Chloride 114.3 H 113.7 H Carbon Dioxide 15 L 14 L BUN 29 H 29 H Creatinine 2.1 H 2.0 H Glucose 132 H 39 L* POC Glucose 150 H Hemoglobin A1c Lactic Acid Calcium 6.7 L 6.9 L Phosphorus AST Alkaline Phosphatase NT-Pro-B Natriuret Pep Total Protein Albumin Urine WBC (Auto) Crossmatch 10/09/18 10/09/18 10/09/18 01:10 01:43 03:20 WBC RBC Hgb Hct MCH RDW Plt Count Lymph % (Auto) [place] % (Auto) Lymph # [place] # Eos # Baso # Seg Neutrophils % Seg Neuts % (Manual) Lymphocytes % (Manual) Seg Neutrophils # Seg Neutrophils # Man Lymphocytes # (Manual) PT INR APTT Heparin Anti-Xa Level POC ABG pH POC ABG pCO2 POC ABG pO2 Sodium Potassium Chloride Carbon Dioxide BUN Creatinine Glucose POC Glucose < 40 L < 40 L Hemoglobin A1c Lactic Acid Calcium Phosphorus AST Alkaline Phosphatase NT-Pro-B Natriuret Pep 2865 H Total Protein Albumin Urine WBC (Auto) Crossmatch 10/09/18 10/09/18 10/09/18 04:23 05:03 05:25 WBC RBC Hgb Hct MCH RDW Plt Count Lymph % (Auto) [place] % (Auto) Lymph # [place] # Eos # Baso # Seg Neutrophils % Seg Neuts % (Manual) Lymphocytes % (Manual) Seg Neutrophils # Seg Neutrophils # Man Lymphocytes # (Manual) PT INR APTT Heparin Anti-Xa Level POC ABG pH POC ABG pCO2 30.6 L 32.3 L POC ABG pO2 118 H Sodium Potassium Chloride Carbon Dioxide BUN Creatinine Glucose POC Glucose 148 H Hemoglobin A1c Lactic Acid Calcium Phosphorus AST Alkaline Phosphatase NT-Pro-B Natriuret Pep Total Protein Albumin Urine WBC (Auto) Crossmatch 10/09/18 10/09/18 10/09/18 06:00 08:34 09:58 WBC RBC Hgb Hct MCH RDW Plt Count Lymph % (Auto) [place] % (Auto) Lymph # [place] # Eos # Baso # Seg Neutrophils % Seg Neuts % (Manual) Lymphocytes % (Manual) Seg Neutrophils # Seg Neutrophils # Man Lymphocytes # (Manual) PT INR APTT Heparin Anti-Xa Level POC ABG pH POC ABG pCO2 POC ABG pO2 Sodium Potassium Chloride Carbon Dioxide BUN Creatinine Glucose POC Glucose 173 H 196 H 183 H Hemoglobin A1c Lactic Acid Calcium Phosphorus AST Alkaline Phosphatase NT-Pro-B Natriuret Pep Total Protein Albumin Urine WBC (Auto) Crossmatch 10/09/18 10/09/18 10/09/18 12:25 12:46 18:16 WBC RBC Hgb Hct MCH RDW Plt Count Lymph % (Auto) [place] % (Auto) Lymph # [place] # Eos # Baso # Seg Neutrophils % Seg Neuts % (Manual) Lymphocytes % (Manual) Seg Neutrophils # Seg Neutrophils # Man Lymphocytes # (Manual) PT INR APTT Heparin Anti-Xa Level POC ABG pH POC ABG pCO2 POC ABG pO2 Sodium Potassium Chloride 110.3 H Carbon Dioxide 16 L BUN 24 H Creatinine 1.8 H Glucose 207 H POC Glucose 208 H 177 H Hemoglobin A1c Lactic Acid Calcium 6.9 L Phosphorus AST Alkaline Phosphatase NT-Pro-B Natriuret Pep Total Protein Albumin Urine WBC (Auto) Crossmatch 10/09/18 10/10/18 10/10/18 21:11 00:11 05:41 WBC RBC Hgb Hct MCH RDW Plt Count Lymph % (Auto) [place] % (Auto) Lymph # [place] # Eos # Baso # Seg Neutrophils % Seg Neuts % (Manual) Lymphocytes % (Manual) Seg Neutrophils # Seg Neutrophils # Man Lymphocytes # (Manual) PT INR APTT Heparin Anti-Xa Level POC ABG pH POC ABG pCO2 POC ABG pO2 Sodium Potassium Chloride Carbon Dioxide BUN Creatinine Glucose POC Glucose 124 H 156 H 42 L Hemoglobin A1c Lactic Acid Calcium Phosphorus AST Alkaline Phosphatase NT-Pro-B Natriuret Pep Total Protein Albumin Urine WBC (Auto) Crossmatch 10/10/18 10/10/18 10/10/18 05:45 07:28 12:07 WBC RBC Hgb Hct MCH RDW Plt Count Lymph % (Auto) [place] % (Auto) Lymph # [place] # Eos # Baso # Seg Neutrophils % Seg Neuts % (Manual) Lymphocytes % (Manual) Seg Neutrophils # Seg Neutrophils # Man Lymphocytes # (Manual) PT INR APTT Heparin Anti-Xa Level POC ABG pH POC ABG pCO2 POC ABG pO2 Sodium 146 H D Potassium Chloride 111.2 H Carbon Dioxide BUN 21 H Creatinine 1.8 H Glucose 44 L POC Glucose 114 H 49 L Hemoglobin A1c Lactic Acid Calcium 7.4 L Phosphorus AST Alkaline Phosphatase NT-Pro-B Natriuret Pep Total Protein Albumin Urine WBC (Auto) Crossmatch 10/10/18 10/10/18 10/10/18 12:37 18:02 20:47 WBC RBC Hgb Hct MCH RDW Plt Count Lymph % (Auto) [place] % (Auto) Lymph # [place] # Eos # Baso # Seg Neutrophils % Seg Neuts % (Manual) Lymphocytes % (Manual) Seg Neutrophils # Seg Neutrophils # Man Lymphocytes # (Manual) PT INR APTT Heparin Anti-Xa Level POC ABG pH POC ABG pCO2 POC ABG pO2 Sodium Potassium Chloride Carbon Dioxide BUN Creatinine Glucose POC Glucose 142 H 49 L 162 H Hemoglobin A1c Lactic Acid Calcium Phosphorus AST Alkaline Phosphatase NT-Pro-B Natriuret Pep Total Protein Albumin Urine WBC (Auto) Crossmatch 10/10/18 10/10/18 10/10/18 21:45 22:19 23:50 WBC RBC Hgb Hct MCH RDW Plt Count Lymph % (Auto) [place] % (Auto) Lymph # [place] # Eos # Baso # Seg Neutrophils % Seg Neuts % (Manual) Lymphocytes % (Manual) Seg Neutrophils # Seg Neutrophils # Man Lymphocytes # (Manual) PT INR APTT Heparin Anti-Xa Level POC ABG pH 7.334 L POC ABG pCO2 47.0 H POC ABG pO2 53 L 79 L Sodium Potassium Chloride Carbon Dioxide BUN Creatinine Glucose POC Glucose 185 H Hemoglobin A1c Lactic Acid Calcium Phosphorus AST Alkaline Phosphatase NT-Pro-B Natriuret Pep Total Protein Albumin Urine WBC (Auto) Crossmatch 10/11/18 10/11/18 10/11/18 05:00 06:41 07:17 WBC RBC Hgb Hct MCH RDW Plt Count Lymph % (Auto) [place] % (Auto) Lymph # [place] # Eos # Baso # Seg Neutrophils % Seg Neuts % (Manual) Lymphocytes % (Manual) Seg Neutrophils # Seg Neutrophils # Man Lymphocytes # (Manual) PT INR APTT Heparin Anti-Xa Level POC ABG pH POC ABG pCO2 POC ABG pO2 Sodium Potassium Chloride Carbon Dioxide BUN Creatinine 1.7 H Glucose 43 L POC Glucose 48 L 129 H Hemoglobin A1c Lactic Acid Calcium 7.7 L Phosphorus AST Alkaline Phosphatase NT-Pro-B Natriuret Pep Total Protein Albumin Urine WBC (Auto) Crossmatch 10/11/18 10/11/18 10/11/18 11:14 13:32 14:25 WBC RBC 3.32 L Hgb 8.2 L Hct 26.4 L MCH 25 L RDW 21.6 H Plt Count Lymph % (Auto) [place] % (Auto) Lymph # [place] # Eos # Baso # Seg Neutrophils % Seg Neuts % (Manual) Lymphocytes % (Manual) Seg Neutrophils # Seg Neutrophils # Man Lymphocytes # (Manual) PT 21.7 H INR 1.76 H APTT 50.5 H Heparin Anti-Xa Level POC ABG pH POC ABG pCO2 POC ABG pO2 Sodium Potassium Chloride Carbon Dioxide BUN Creatinine Glucose POC Glucose 138 H Hemoglobin A1c Lactic Acid Calcium Phosphorus AST Alkaline Phosphatase NT-Pro-B Natriuret Pep Total Protein Albumin Urine WBC (Auto) Crossmatch 10/11/18 10/11/18 10/11/18 14:25 15:41 17:31 WBC RBC Hgb Hct MCH RDW Plt Count Lymph % (Auto) [place] % (Auto) Lymph # [place] # Eos # Baso # Seg Neutrophils % Seg Neuts % (Manual) Lymphocytes % (Manual) Seg Neutrophils # Seg Neutrophils # Man Lymphocytes # (Manual) PT 20.6 H INR 1.65 H APTT 54.9 H Heparin Anti-Xa Level POC ABG pH POC ABG pCO2 POC ABG pO2 53 L Sodium Potassium Chloride Carbon Dioxide BUN Creatinine Glucose POC Glucose 133 H Hemoglobin A1c Lactic Acid Calcium Phosphorus AST Alkaline Phosphatase NT-Pro-B Natriuret Pep Total Protein Albumin Urine WBC (Auto) Crossmatch 10/12/18 10/12/18 10/12/18 00:30 03:56 04:25 WBC RBC Hgb Hct MCH RDW Plt Count Lymph % (Auto) [place] % (Auto) Lymph # [place] # Eos # Baso # Seg Neutrophils % Seg Neuts % (Manual) Lymphocytes % (Manual) Seg Neutrophils # Seg Neutrophils # Man Lymphocytes # (Manual) PT INR APTT Heparin Anti-Xa Level POC ABG pH 7.514 H POC ABG pCO2 31.2 L POC ABG pO2 Sodium Potassium Chloride Carbon Dioxide BUN Creatinine 1.6 H Glucose 287 H POC Glucose 353 H Hemoglobin A1c Lactic Acid Calcium 8.0 L Phosphorus AST Alkaline Phosphatase NT-Pro-B Natriuret Pep Total Protein Albumin Urine WBC (Auto) Crossmatch 10/12/18 10/12/18 10/12/18 04:49 12:13 17:53 WBC RBC Hgb Hct MCH RDW Plt Count Lymph % (Auto) [place] % (Auto) Lymph # [place] # Eos # Baso # Seg Neutrophils % Seg Neuts % (Manual) Lymphocytes % (Manual) Seg Neutrophils # Seg Neutrophils # Man Lymphocytes # (Manual) PT INR APTT Heparin Anti-Xa Level POC ABG pH POC ABG pCO2 POC ABG pO2 Sodium Potassium Chloride Carbon Dioxide BUN Creatinine Glucose POC Glucose 297 H 290 H 211 H Hemoglobin A1c Lactic Acid Calcium Phosphorus AST Alkaline Phosphatase NT-Pro-B Natriuret Pep Total Protein Albumin Urine WBC (Auto) Crossmatch 10/12/18 10/12/18 10/13/18 18:57 21:35 04:50 WBC 11.8 H RBC 3.08 L Hgb 7.4 L Hct 24.2 L MCH 24 L RDW 21.5 H Plt Count Lymph % (Auto) [place] % (Auto) Lymph # [place] # Eos # Baso # Seg Neutrophils % Seg Neuts % (Manual) Lymphocytes % (Manual) Seg Neutrophils # Seg Neutrophils # Man Lymphocytes # (Manual) PT INR APTT Heparin Anti-Xa Level 1.74 H POC ABG pH 7.497 H POC ABG pCO2 33.2 L POC ABG pO2 71 L Sodium Potassium Chloride Carbon Dioxide BUN Creatinine Glucose POC Glucose Hemoglobin A1c Lactic Acid Calcium Phosphorus AST Alkaline Phosphatase NT-Pro-B Natriuret Pep Total Protein Albumin Urine WBC (Auto) Crossmatch 10/13/18 10/13/18 10/13/18 05:25 05:25 05:37 WBC 12.1 H RBC 3.02 L Hgb 7.4 L Hct 23.7 L MCH 25 L RDW 21.0 H Plt Count Lymph % (Auto) 9.6 L [place] % (Auto) 10.0 H Lymph # [place] # 1.2 H Eos # Baso # Seg Neutrophils % 76.2 H Seg Neuts % (Manual) Lymphocytes % (Manual) Seg Neutrophils # 9.2 H Seg Neutrophils # Man Lymphocytes # (Manual) PT INR APTT Heparin Anti-Xa Level POC ABG pH POC ABG pCO2 POC ABG pO2 Sodium Potassium Chloride Carbon Dioxide BUN Creatinine 1.6 H Glucose 175 H POC Glucose 165 H Hemoglobin A1c Lactic Acid Calcium 8.3 L Phosphorus AST Alkaline Phosphatase NT-Pro-B Natriuret Pep Total Protein Albumin Urine WBC (Auto) Crossmatch 0510/13/18 10/13/18 06:45 11:12 17:19 WBC RBC Hgb Hct MCH RDW Plt Count Lymph % (Auto) [place] % (Auto) Lymph # [place] # Eos # Baso # Seg Neutrophils % Seg Neuts % (Manual) Lymphocytes % (Manual) Seg Neutrophils # Seg Neutrophils # Man Lymphocytes # (Manual) PT 17.4 H INR 1.34 H APTT Heparin Anti-Xa Level POC ABG pH POC ABG pCO2 POC ABG pO2 Sodium Potassium Chloride Carbon Dioxide BUN Creatinine Glucose POC Glucose 223 H 129 H Hemoglobin A1c Lactic Acid Calcium Phosphorus AST Alkaline Phosphatase NT-Pro-B Natriuret Pep Total Protein Albumin Urine WBC (Auto) Crossmatch 10/13/18 10/14/18 10/14/18 23:39 05:01 06:14 WBC RBC Hgb Hct MCH RDW Plt Count Lymph % (Auto) [place] % (Auto) Lymph # [place] # Eos # Baso # Seg Neutrophils % Seg Neuts % (Manual) Lymphocytes % (Manual) Seg Neutrophils # Seg Neutrophils # Man Lymphocytes # (Manual) PT INR APTT Heparin Anti-Xa Level POC ABG pH POC ABG pCO2 POC ABG pO2 Sodium Potassium Chloride Carbon Dioxide BUN Creatinine 1.5 H Glucose 264 H POC Glucose 171 H 226 H Hemoglobin A1c Lactic Acid Calcium 8.0 L Phosphorus AST Alkaline Phosphatase NT-Pro-B Natriuret Pep Total Protein Albumin Urine WBC (Auto) Crossmatch 10/14/18 10/14/18 10/14/18 06:14 12:24 19:33 WBC RBC Hgb Hct MCH RDW Plt Count Lymph % (Auto) [place] % (Auto) Lymph # [place] # Eos # Baso # Seg Neutrophils % Seg Neuts % (Manual) Lymphocytes % (Manual) Seg Neutrophils # Seg Neutrophils # Man Lymphocytes # (Manual) PT 22.1 H INR 1.80 H APTT Heparin Anti-Xa Level POC ABG pH POC ABG pCO2 POC ABG pO2 Sodium Potassium Chloride Carbon Dioxide BUN Creatinine Glucose POC Glucose 403 H 164 H Hemoglobin A1c Lactic Acid Calcium Phosphorus AST Alkaline Phosphatase NT-Pro-B Natriuret Pep Total Protein Albumin Urine WBC (Auto) Crossmatch 10/15/18 10/15/18 10/15/18 00:29 06:03 07:00 WBC RBC Hgb Hct MCH RDW Plt Count Lymph % (Auto) [place] % (Auto) Lymph # [place] # Eos # Baso # Seg Neutrophils % Seg Neuts % (Manual) Lymphocytes % (Manual) Seg Neutrophils # Seg Neutrophils # Man Lymphocytes # (Manual) PT INR APTT Heparin Anti-Xa Level POC ABG pH POC ABG pCO2 POC ABG pO2 Sodium Potassium Chloride Carbon Dioxide BUN 20 H Creatinine 1.7 H Glucose 308 H POC Glucose 237 H 282 H Hemoglobin A1c Lactic Acid Calcium 7.6 L Phosphorus AST Alkaline Phosphatase NT-Pro-B Natriuret Pep Total Protein Albumin Urine WBC (Auto) Crossmatch 10/15/18 10/15/18 10/15/18 07:00 08:03 10:27 WBC RBC Hgb 5.8 L* Hct 18.5 L* MCH RDW Plt Count Lymph % (Auto) [place] % (Auto) Lymph # [place] # Eos # Baso # Seg Neutrophils % Seg Neuts % (Manual) Lymphocytes % (Manual) Seg Neutrophils # Seg Neutrophils # Man Lymphocytes # (Manual) PT 46.1 H INR 4.52 H APTT Heparin Anti-Xa Level 0.25 L POC ABG pH POC ABG pCO2 POC ABG pO2 Sodium Potassium Chloride Carbon Dioxide BUN Creatinine Glucose POC Glucose Hemoglobin A1c Lactic Acid Calcium Phosphorus AST Alkaline Phosphatase NT-Pro-B Natriuret Pep Total Protein Albumin Urine WBC (Auto) Crossmatch See Detail 10/15/18 10/15/18 10/16/18 14:03 15:30 10:18 WBC RBC Hgb Hct MCH RDW Plt Count Lymph % (Auto) [place] % (Auto) Lymph # [place] # Eos # Baso # Seg Neutrophils % Seg Neuts % (Manual) Lymphocytes % (Manual) Seg Neutrophils # Seg Neutrophils # Man Lymphocytes # (Manual) PT 53.8 H INR 5.48 H* APTT Heparin Anti-Xa Level POC ABG pH POC ABG pCO2 POC ABG pO2 Sodium Potassium Chloride Carbon Dioxide BUN Creatinine Glucose POC Glucose 336 H 259 H Hemoglobin A1c Lactic Acid Calcium Phosphorus AST Alkaline Phosphatase NT-Pro-B Natriuret Pep Total Protein Albumin Urine WBC (Auto) Crossmatch 10/16/18 10/16/18 10/16/18 10:18 10:18 13:03 WBC 14.8 H RBC 3.03 L Hgb 8.2 L Hct 24.9 L D MCH 27 L RDW 19.2 H Plt Count Lymph % (Auto) 5.7 L [place] % (Auto) Lymph # 0.8 L [place] # 1.1 H Eos # Baso # 0.2 H Seg Neutrophils % 84.3 H Seg Neuts % (Manual) Lymphocytes % (Manual) Seg Neutrophils # 12.5 H Seg Neutrophils # Man Lymphocytes # (Manual) PT INR APTT Heparin Anti-Xa Level POC ABG pH POC ABG pCO2 POC ABG pO2 Sodium Potassium Chloride Carbon Dioxide 20 L BUN 21 H Creatinine 1.5 H Glucose 326 H POC Glucose 329 H Hemoglobin A1c Lactic Acid Calcium 7.8 L Phosphorus AST Alkaline Phosphatase NT-Pro-B Natriuret Pep Total Protein Albumin Urine WBC (Auto) Crossmatch 10/16/18 10/17/18 10/17/18 13:27 00:35 05:00 WBC RBC Hgb Hct MCH RDW Plt Count Lymph % (Auto) [place] % (Auto) Lymph # [place] # Eos # Baso # Seg Neutrophils % Seg Neuts % (Manual) Lymphocytes % (Manual) Seg Neutrophils # Seg Neutrophils # Man Lymphocytes # (Manual) PT 55.4 H 60.2 H INR 5.68 H* 6.30 H* APTT Heparin Anti-Xa Level POC ABG pH POC ABG pCO2 POC ABG pO2 Sodium Potassium Chloride Carbon Dioxide BUN Creatinine Glucose POC Glucose 407 H Hemoglobin A1c Lactic Acid Calcium Phosphorus AST Alkaline Phosphatase NT-Pro-B Natriuret Pep Total Protein Albumin Urine WBC (Auto) Crossmatch 10/17/18 10/17/18 10/17/18 05:00 05:00 05:29 WBC 11.6 H RBC 2.99 L Hgb 8.0 L Hct 24.2 L MCH 27 L RDW 19.2 H Plt Count Lymph % (Auto) [place] % (Auto) Lymph # [place] # Eos # Baso # Seg Neutrophils % Seg Neuts % (Manual) 87.0 H Lymphocytes % (Manual) 9.0 L Seg Neutrophils # Seg Neutrophils # Man 10.1 H Lymphocytes # (Manual) 1.0 L PT INR APTT Heparin Anti-Xa Level POC ABG pH POC ABG pCO2 POC ABG pO2 Sodium Potassium 3.4 L D Chloride Carbon Dioxide BUN Creatinine 1.4 H Glucose 170 H POC Glucose 156 H Hemoglobin A1c Lactic Acid Calcium 7.6 L Phosphorus AST Alkaline Phosphatase NT-Pro-B Natriuret Pep Total Protein 5.4 L Albumin 2.2 L Urine WBC (Auto) Crossmatch 10/17/18 10/17/1819 11:59 17:06 00:21 WBC RBC Hgb Hct MCH RDW Plt Count Lymph % (Auto) [place] % (Auto) Lymph # [place] # Eos # Baso # Seg Neutrophils % Seg Neuts % (Manual) Lymphocytes % (Manual) Seg Neutrophils # Seg Neutrophils # Man Lymphocytes # (Manual) PT INR APTT Heparin Anti-Xa Level POC ABG pH POC ABG pCO2 POC ABG pO2 Sodium Potassium Chloride Carbon Dioxide BUN Creatinine Glucose POC Glucose 389 H 151 H 355 H Hemoglobin A1c Lactic Acid Calcium Phosphorus AST Alkaline Phosphatase NT-Pro-B Natriuret Pep Total Protein Albumin Urine WBC (Auto) Crossmatch 10/18/18 10/18/18 10/18/18 04:17 04:17 04:17 WBC RBC 3.01 L Hgb 8.1 L Hct 24.6 L MCH 27 L RDW 19.7 H Plt Count Lymph % (Auto) 12.7 L [place] % (Auto) Lymph # [place] # Eos # Baso # Seg Neutrophils % 76.3 H Seg Neuts % (Manual) Lymphocytes % (Manual) Seg Neutrophils # 8.2 H Seg Neutrophils # Man Lymphocytes # (Manual) PT 39.5 H INR 3.72 H APTT Heparin Anti-Xa Level POC ABG pH POC ABG pCO2 POC ABG pO2 Sodium Potassium 3.5 L Chloride Carbon Dioxide BUN Creatinine 1.5 H Glucose 115 H POC Glucose Hemoglobin A1c Lactic Acid Calcium 7.4 L Phosphorus AST Alkaline Phosphatase NT-Pro-B Natriuret Pep Total Protein Albumin Urine WBC (Auto) Crossmatch 10/18/18 10/18/18 10/18/18 06:45 13:39 17:12 WBC RBC Hgb Hct MCH RDW Plt Count Lymph % (Auto) [place] % (Auto) Lymph # [place] # Eos # Baso # Seg Neutrophils % Seg Neuts % (Manual) Lymphocytes % (Manual) Seg Neutrophils # Seg Neutrophils # Man Lymphocytes # (Manual) PT INR APTT Heparin Anti-Xa Level POC ABG pH POC ABG pCO2 POC ABG pO2 Sodium Potassium Chloride Carbon Dioxide BUN Creatinine Glucose POC Glucose 170 H 415 H 377 H Hemoglobin A1c Lactic Acid Calcium Phosphorus AST Alkaline Phosphatase NT-Pro-B Natriuret Pep Total Protein Albumin Urine WBC (Auto) Crossmatch 10/19/18 10/19/18 10/19/18 00:48 05:35 05:52 WBC RBC 2.84 L Hgb 7.7 L Hct 23.2 L MCH 27 L RDW 19.8 H Plt Count Lymph % (Auto) 11.0 L [place] % (Auto) Lymph # 1.1 L [place] # Eos # Baso # Seg Neutrophils % 78.5 H Seg Neuts % (Manual) Lymphocytes % (Manual) Seg Neutrophils # 8.1 H Seg Neutrophils # Man Lymphocytes # (Manual) PT INR APTT Heparin Anti-Xa Level POC ABG pH POC ABG pCO2 POC ABG pO2 Sodium Potassium Chloride Carbon Dioxide BUN Creatinine Glucose POC Glucose 308 H 116 H Hemoglobin A1c Lactic Acid Calcium Phosphorus AST Alkaline Phosphatase NT-Pro-B Natriuret Pep Total Protein Albumin Urine WBC (Auto) Crossmatch 10/19/18 10/19/18 10/19/18 05:52 07:12 09:41 WBC RBC Hgb 8.1 L Hct 24.6 L MCH RDW Plt Count Lymph % (Auto) [place] % (Auto) Lymph # [place] # Eos # Baso # Seg Neutrophils % Seg Neuts % (Manual) Lymphocytes % (Manual) Seg Neutrophils # Seg Neutrophils # Man Lymphocytes # (Manual) PT 18.1 H INR 1.40 H APTT Heparin Anti-Xa Level POC ABG pH POC ABG pCO2 POC ABG pO2 Sodium Potassium Chloride Carbon Dioxide BUN 21 H Creatinine 1.6 H Glucose 128 H POC Glucose Hemoglobin A1c Lactic Acid Calcium 7.7 L Phosphorus AST Alkaline Phosphatase NT-Pro-B Natriuret Pep Total Protein Albumin Urine WBC (Auto) Crossmatch 10/19/18 10/19/18 10/19/18 09:41 11:46 16:12 WBC RBC Hgb Hct MCH RDW Plt Count Lymph % (Auto) [place] % (Auto) Lymph # [place] # Eos # Baso # Seg Neutrophils % Seg Neuts % (Manual) Lymphocytes % (Manual) Seg Neutrophils # Seg Neutrophils # Man Lymphocytes # (Manual) PT 17.7 H INR 1.36 H APTT Heparin Anti-Xa Level POC ABG pH POC ABG pCO2 POC ABG pO2 Sodium Potassium Chloride Carbon Dioxide BUN Creatinine Glucose POC Glucose 212 H 260 H Hemoglobin A1c Lactic Acid Calcium Phosphorus AST Alkaline Phosphatase NT-Pro-B Natriuret Pep Total Protein Albumin Urine WBC (Auto) Crossmatch 10/19/18 10/19/18 10/19/18 19:56 22:09 Unknown WBC RBC Hgb Hct MCH RDW Plt Count Lymph % (Auto) [place] % (Auto) Lymph # [place] # Eos # Baso # Seg Neutrophils % Seg Neuts % (Manual) Lymphocytes % (Manual) Seg Neutrophils # Seg Neutrophils # Man Lymphocytes # (Manual) PT INR APTT Heparin Anti-Xa Level 0.19 L POC ABG pH 7.458 H POC ABG pCO2 POC ABG pO2 63 L Sodium Potassium Chloride Carbon Dioxide BUN Creatinine Glucose POC Glucose 216 H Hemoglobin A1c Lactic Acid Calcium Phosphorus AST Alkaline Phosphatase NT-Pro-B Natriuret Pep Total Protein Albumin Urine WBC (Auto) Crossmatch 10/20/18 10/20/18 10/20/18 03:00 03:00 03:00 WBC 14.8 H RBC 2.81 L Hgb 7.5 L Hct 23.1 L MCH 27 L RDW 20.0 H Plt Count Lymph % (Auto) 11.5 L [place] % (Auto) Lymph # [place] # 0.9 H Eos # Baso # Seg Neutrophils % 79.7 H Seg Neuts % (Manual) Lymphocytes % (Manual) Seg Neutrophils # 11.8 H Seg Neutrophils # Man Lymphocytes # (Manual) PT 16.9 H INR 1.29 H APTT Heparin Anti-Xa Level 0.24 L POC ABG pH POC ABG pCO2 POC ABG pO2 Sodium Potassium Chloride 97.8 L Carbon Dioxide BUN 20 H Creatinine 1.5 H Glucose 206 H POC Glucose Hemoglobin A1c Lactic Acid Calcium 7.8 L Phosphorus AST Alkaline Phosphatase NT-Pro-B Natriuret Pep Total Protein Albumin Urine WBC (Auto) Crossmatch 10/20/18 10/20/18 10/20/18 06:59 10:20 10:59 WBC RBC Hgb Hct MCH RDW Plt Count Lymph % (Auto) [place] % (Auto) Lymph # [place] # Eos # Baso # Seg Neutrophils % Seg Neuts % (Manual) Lymphocytes % (Manual) Seg Neutrophils # Seg Neutrophils # Man Lymphocytes # (Manual) PT 15.5 H INR 1.16 H APTT Heparin Anti-Xa Level < 0.10 L POC ABG pH POC ABG pCO2 POC ABG pO2 Sodium Potassium Chloride Carbon Dioxide BUN Creatinine Glucose POC Glucose 348 H 227 H Hemoglobin A1c Lactic Acid Calcium Phosphorus AST Alkaline Phosphatase NT-Pro-B Natriuret Pep Total Protein Albumin Urine WBC (Auto) Crossmatch 10/20/18 10/20/18 10/21/18 16:15 17:14 00:53 WBC RBC Hgb Hct MCH RDW Plt Count Lymph % (Auto) [place] % (Auto) Lymph # [place] # Eos # Baso # Seg Neutrophils % Seg Neuts % (Manual) Lymphocytes % (Manual) Seg Neutrophils # Seg Neutrophils # Man Lymphocytes # (Manual) PT INR APTT Heparin Anti-Xa Level 0.24 L POC ABG pH POC ABG pCO2 POC ABG pO2 Sodium Potassium Chloride Carbon Dioxide BUN Creatinine Glucose POC Glucose 279 H 136 H Hemoglobin A1c Lactic Acid Calcium Phosphorus AST Alkaline Phosphatase NT-Pro-B Natriuret Pep Total Protein Albumin Urine WBC (Auto) Crossmatch 10/21/18 10/21/18 10/21/18 05:45 05:45 05:45 WBC 15.8 H RBC 2.79 L Hgb 7.5 L Hct 22.9 L MCH 27 L RDW 19.8 H Plt Count Lymph % (Auto) 7.2 L [place] % (Auto) Lymph # 1.1 L [place] # Eos # Baso # Seg Neutrophils % 85.7 H Seg Neuts % (Manual) Lymphocytes % (Manual) Seg Neutrophils # 13.5 H Seg Neutrophils # Man Lymphocytes # (Manual) PT 16.9 H INR 1.29 H APTT Heparin Anti-Xa Level POC ABG pH POC ABG pCO2 POC ABG pO2 Sodium Potassium Chloride Carbon Dioxide BUN 18 H Creatinine 1.4 H Glucose 339 H POC Glucose Hemoglobin A1c Lactic Acid Calcium 8.3 L Phosphorus AST Alkaline Phosphatase NT-Pro-B Natriuret Pep Total Protein Albumin Urine WBC (Auto) Crossmatch 10/21/18 10/21/18 10/21/18 08:00 10:13 11:00 WBC RBC Hgb Hct MCH RDW Plt Count Lymph % (Auto) [place] % (Auto) Lymph # [place] # Eos # Baso # Seg Neutrophils % Seg Neuts % (Manual) Lymphocytes % (Manual) Seg Neutrophils # Seg Neutrophils # Man Lymphocytes # (Manual) PT INR APTT Heparin Anti-Xa Level POC ABG pH POC ABG pCO2 POC ABG pO2 Sodium Potassium Chloride Carbon Dioxide BUN Creatinine Glucose POC Glucose 398 H 295 H Hemoglobin A1c Lactic Acid Calcium Phosphorus AST Alkaline Phosphatase NT-Pro-B Natriuret Pep Total Protein Albumin Urine WBC (Auto) 125.0 H Crossmatch 10/21/18 10/21/18 10/21/18 11:18 17:20 17:52 WBC RBC Hgb Hct MCH RDW Plt Count Lymph % (Auto) [place] % (Auto) Lymph # [place] # Eos # Baso # Seg Neutrophils % Seg Neuts % (Manual) Lymphocytes % (Manual) Seg Neutrophils # Seg Neutrophils # Man Lymphocytes # (Manual) PT 17.2 H INR 1.32 H APTT 40.0 H Heparin Anti-Xa Level POC ABG pH POC ABG pCO2 POC ABG pO2 Sodium Potassium Chloride Carbon Dioxide BUN Creatinine Glucose POC Glucose 235 H 271 H Hemoglobin A1c Lactic Acid Calcium Phosphorus AST Alkaline Phosphatase NT-Pro-B Natriuret Pep Total Protein Albumin Urine WBC (Auto) Crossmatch 10/21/18 10/22/18 10/22/18 23:41 00:47 04:39 WBC 16.1 H RBC 2.69 L Hgb 6.7 L 7.3 L Hct 19.8 L* 22.3 L MCH 27 L RDW 20.4 H Plt Count Lymph % (Auto) 6.9 L [place] % (Auto) Lymph # 1.1 L [place] # 1.0 H Eos # Baso # Seg Neutrophils % 85.3 H Seg Neuts % (Manual) Lymphocytes % (Manual) Seg Neutrophils # 13.8 H Seg Neutrophils # Man Lymphocytes # (Manual) PT INR APTT Heparin Anti-Xa Level POC ABG pH POC ABG pCO2 POC ABG pO2 Sodium Potassium Chloride Carbon Dioxide BUN Creatinine Glucose POC Glucose 157 H Hemoglobin A1c Lactic Acid Calcium Phosphorus AST Alkaline Phosphatase NT-Pro-B Natriuret Pep Total Protein Albumin Urine WBC (Auto) Crossmatch 10/22/18 10/22/18 10/22/18 04:39 04:39 04:39 WBC RBC Hgb Hct MCH RDW Plt Count Lymph % (Auto) [place] % (Auto) Lymph # [place] # Eos # Baso # Seg Neutrophils % Seg Neuts % (Manual) Lymphocytes % (Manual) Seg Neutrophils # Seg Neutrophils # Man Lymphocytes # (Manual) PT 20.3 H INR 1.62 H APTT Heparin Anti-Xa Level 0.12 L POC ABG pH POC ABG pCO2 POC ABG pO2 Sodium Potassium Chloride Carbon Dioxide BUN 20 H Creatinine 1.7 H Glucose 255 H POC Glucose Hemoglobin A1c Lactic Acid Calcium 8.1 L Phosphorus AST Alkaline Phosphatase NT-Pro-B Natriuret Pep Total Protein Albumin Urine WBC (Auto) Crossmatch See Detail 10/22/18 10/22/18 10/22/18 05:09 11:20 11:20 WBC RBC Hgb 7.4 L Hct 21.9 L MCH RDW Plt Count 457 H Lymph % (Auto) [place] % (Auto) Lymph # [place] # Eos # Baso # Seg Neutrophils % Seg Neuts % (Manual) Lymphocytes % (Manual) Seg Neutrophils # Seg Neutrophils # Man Lymphocytes # (Manual) PT 20.8 H INR 1.67 H APTT 71.0 H* Heparin Anti-Xa Level 0.20 L POC ABG pH POC ABG pCO2 POC ABG pO2 Sodium Potassium Chloride Carbon Dioxide BUN Creatinine Glucose POC Glucose 297 H Hemoglobin A1c Lactic Acid Calcium Phosphorus AST Alkaline Phosphatase NT-Pro-B Natriuret Pep Total Protein Albumin Urine WBC (Auto) Crossmatch 10/22/18 10/22/18 10/22/18 12:09 16:51 17:11 WBC RBC Hgb Hct MCH RDW Plt Count Lymph % (Auto) [place] % (Auto) Lymph # [place] # Eos # Baso # Seg Neutrophils % Seg Neuts % (Manual) Lymphocytes % (Manual) Seg Neutrophils # Seg Neutrophils # Man Lymphocytes # (Manual) PT INR APTT Heparin Anti-Xa Level POC ABG pH POC ABG pCO2 POC ABG pO2 Sodium Potassium Chloride Carbon Dioxide BUN Creatinine Glucose 115 H POC Glucose 125 H < 40 L Hemoglobin A1c Lactic Acid Calcium Phosphorus AST Alkaline Phosphatase NT-Pro-B Natriuret Pep Total Protein Albumin Urine WBC (Auto) Crossmatch 10/22/18 10/23/18 10/23/18 17:13 00:08 06:19 WBC RBC Hgb Hct MCH RDW Plt Count Lymph % (Auto) [place] % (Auto) Lymph # [place] # Eos # Baso # Seg Neutrophils % Seg Neuts % (Manual) Lymphocytes % (Manual) Seg Neutrophils # Seg Neutrophils # Man Lymphocytes # (Manual) PT INR APTT Heparin Anti-Xa Level POC ABG pH POC ABG pCO2 POC ABG pO2 Sodium Potassium Chloride Carbon Dioxide BUN Creatinine Glucose POC Glucose 126 H 192 H 249 H Hemoglobin A1c Lactic Acid Calcium Phosphorus AST Alkaline Phosphatase NT-Pro-B Natriuret Pep Total Protein Albumin Urine WBC (Auto) Crossmatch 10/23/18 10/23/18 10/23/18 07:21 07:21 07:21 WBC 14.4 H RBC 3.29 L Hgb 9.2 L Hct 27.6 L MCH RDW 20.5 H Plt Count 505 H Lymph % (Auto) 8.1 L [place] % (Auto) Lymph # [place] # 1.0 H Eos # 0.6 H Baso # Seg Neutrophils % 80.0 H Seg Neuts % (Manual) Lymphocytes % (Manual) Seg Neutrophils # 11.5 H Seg Neutrophils # Man Lymphocytes # (Manual) PT 21.6 H INR 1.75 H APTT Heparin Anti-Xa Level POC ABG pH POC ABG pCO2 POC ABG pO2 Sodium Potassium Chloride Carbon Dioxide BUN 18 H Creatinine 1.5 H Glucose 308 H POC Glucose Hemoglobin A1c Lactic Acid Calcium Phosphorus AST Alkaline Phosphatase NT-Pro-B Natriuret Pep Total Protein Albumin Urine WBC (Auto) Crossmatch 10/23/18 10/23/18 10/23/18 10:34 11:56 17:07 WBC RBC Hgb Hct MCH RDW Plt Count Lymph % (Auto) [place] % (Auto) Lymph # [place] # Eos # Baso # Seg Neutrophils % Seg Neuts % (Manual) Lymphocytes % (Manual) Seg Neutrophils # Seg Neutrophils # Man Lymphocytes # (Manual) PT INR APTT Heparin Anti-Xa Level POC ABG pH POC ABG pCO2 POC ABG pO2 Sodium Potassium Chloride Carbon Dioxide BUN Creatinine Glucose POC Glucose > 500 H 440 H 387 H Hemoglobin A1c Lactic Acid Calcium Phosphorus AST Alkaline Phosphatase NT-Pro-B Natriuret Pep Total Protein Albumin Urine WBC (Auto) Crossmatch 10/23/18 10/24/18 10/24/18 23:44 06:18 06:39 WBC RBC Hgb 7.9 L Hct 24.3 L MCH RDW Plt Count 522 H Lymph % (Auto) [place] % (Auto) Lymph # [place] # Eos # Baso # Seg Neutrophils % Seg Neuts % (Manual) Lymphocytes % (Manual) Seg Neutrophils # Seg Neutrophils # Man Lymphocytes # (Manual) PT INR APTT Heparin Anti-Xa Level POC ABG pH POC ABG pCO2 POC ABG pO2 Sodium Potassium Chloride Carbon Dioxide BUN Creatinine Glucose POC Glucose 172 H 154 H Hemoglobin A1c Lactic Acid Calcium Phosphorus AST Alkaline Phosphatase NT-Pro-B Natriuret Pep Total Protein Albumin Urine WBC (Auto) Crossmatch 10/24/18 10/24/18 08:05 11:12 WBC RBC Hgb Hct MCH RDW Plt Count Lymph % (Auto) [place] % (Auto) Lymph # [place] # Eos # Baso # Seg Neutrophils % Seg Neuts % (Manual) Lymphocytes % (Manual) Seg Neutrophils # Seg Neutrophils # Man Lymphocytes # (Manual) PT 20.5 H INR 1.64 H APTT Heparin Anti-Xa Level POC ABG pH POC ABG pCO2 POC ABG pO2 Sodium Potassium Chloride Carbon Dioxide BUN Creatinine Glucose POC Glucose 203 H Hemoglobin A1c Lactic Acid Calcium Phosphorus AST Alkaline Phosphatase NT-Pro-B Natriuret Pep Total Protein Albumin Urine WBC (Auto) Crossmatch Allied health notes reviewed: nursing
[2018-10-25] MEDS: HumaLOG SUB-Q SCH ×8 (01:26→22:10)
[2018-10-25] MEDS: SODIUM CHLORIDE FLUSH SYRINGE 10 ML IV SCH ×3 (01:32→22:13)
[2018-10-25] MEDS: HEPARIN/ 0.45% NACL-25,000 UNIT/500 ML 25,000 UNIT/500 ML BAG IV SCH (04:48)
[2018-10-25 07:03] LABS: Hematocrit 23.9 % (30.3-42.9); Hemoglobin 7.8 gm/dl (10.1-14.3)
[2018-10-25 07:31] LABS: INR 1.17 (0.87-1.13)
[2018-10-25] MEDS: LANTUS SUB-Q SCH (09:11)
[2018-10-25] MEDS: LOPRESSOR PO SCH ×3 (09:11→20:51)
[2018-10-25] MEDS: PREVACID SOLUTAB FEEDTUBE SCH ×2 (09:11→22:13)
[2018-10-25] MEDS: LASIX PO SCH (09:12)
--- NOTE | 2018-10-25 11:56 | Progress Note ---
Assessment and Plan Assessment and plan: 48 year old woman with history of coronary artery disease, status post cabbage, diabetes, hypertension who was brought to the emergency room for altered mental status. She was found to have hypoglycemia, she was also having convulsions at the time of admission. The patient was intubated, sp dextrose she was put on the ventilator she was found to have pneumonia and CHF flare and started on antibiotics. patient has history of MV replacement and was on anticoagulation. Pneumonia, severe sepsis - Patient was on IV antibiotics and completed on 10/13 per ID Acute hypoxic respiratory failure on MV >96 hrs Was intubated and on mechanical ventilation - patient was extubated on 10/13 -Weaned to room air on 10/19, status epilepticus; Seizures when most likely due to hypoglycemia -Treated with dextrose - neurology consult appreciated Acute on chronic systolic CHF EF 40%, dilated ventricles -cardiology consult appreciated, sp lasix, now on PO lasix History of [facility] mitral valve replacement/hypercoaguable state/coagulopathy due to warfarin INR subtherapeutic, on heparin ggt INR is 1 was 1.17 and Coumadin was increased to 10 mg Severe anemia sp-transfusion, Gi workup showed neg egd and c scope, outpatient pill camera recommended Currently stable 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, treated as type 1, uncontrolled, a1c 10.2 Continue insulins judiciously, brittle DM with episodes of hypoglycemia and hyperglycemia, labile glc Mazin upon ckd stage 3, vasomotor nephropathy and likely ATN from sepsis Nephrology input appreciated, avoid nephrotoxins, neph signed off on 10/15 acute metabolic encephalopathy - Resolved hypernatremia - Resolved Hyperkalemia - resolved with insulin and diuretics htn urgency; - Controlled - optimized bp meds Marijuana abuse; was counseled, preventive health counseling dvt ppx- chemical, dispo; to SARA when INR> 2.5 History Interval history: Patient was seen and evaluated this morning, patient was extubated on 10/12/18. Patient was alert and oriented. She said she is feeling better. Hospitalist Physical - Physical exam Narrative exam: Patient is not in cardiopulmonary distress. The patient appeared well nourished and normally developed. Vital signs as documented. Head exam is unremarkable. No scleral icterus . Neck is without jugular venous distension, thyromegaly, or carotid bruits. Lungs are clear to auscultation. Cardiac exam reveals regular rate and Rhythm. Abdominal exam reveals normal bowel sounds Extremities are nonedematous. 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 - Constitutional Vitals: Temp Pulse Resp BP Pulse Ox 98.6 F 86 20 149/92 98 10/25/18 07:08 10/25/18 07:08 10/25/18 07:08 10/25/18 07:08 10/25/18 07:08 General appearance: Present: other (intubated, eyes open, no purposeful response to commands) Results - Labs CBC & Chem 7: 10/25/18 06:00 10/23/18 07:21 Labs: Laboratory Last Values WBC 14.4 K/mm3 (4.5-11.0) H 10/23/18 07:21 RBC 3.29 M/mm3 (3.65-5.03) L 10/23/18 07:21 Hgb 7.8 gm/dl (10.1-14.3) L 10/25/18 06:00 Hct 23.9 % (30.3-42.9) L 10/25/18 06:00 MCV 84 fl (79-97) 10/23/18 07:21 MCH 28 pg (28-32) 10/23/18 07:21 MCHC 33 % (30-34) 10/23/18 07:21 RDW 20.5 % (13.2-15.2) H 10/23/18 07:21 Plt Count 569 K/mm3 (140-440) H 10/25/18 06:00 Lymph % (Auto) 8.1 % (13.4-35.0) L 10/23/18 07:21 [place] % (Auto) 7.3 % (0.0-7.3) 10/23/18 07:21 Eos % (Auto) 3.8 % (0.0-4.3) 10/23/18 07:21 Baso % (Auto) 0.8 % (0.0-1.8) 10/23/18 07:21 Lymph # 1.2 K/mm3 (1.2-5.4) 10/23/18 07:21 [place] # 1.0 K/mm3 (0.0-0.8) H 10/23/18 07:21 Eos # 0.6 K/mm3 (0.0-0.4) H 10/23/18 07:21 Baso # 0.1 K/mm3 (0.0-0.1) 10/23/18 07:21 Add Manual Diff Complete 10/17/18 05:00 Total Counted 100 10/17/18 05:00 Seg Neutrophils % 80.0 % (40.0-70.0) H 10/23/18 07:21 Seg Neuts % (Manual) 87.0 % (40.0-70.0) H 10/17/18 05:00 0 % 10/17/18 05:00 9.0 % (13.4-35.0) L 10/17/18 05:00 Reactive Lymphs % (Man) 0 % 10/17/18 05:00 2.0 % (0.0-7.3) 10/17/18 05:00 2.0 % (0.0-4.3) 10/17/18 05:00 0 % (0.0-1.8) 10/17/18 05:00 0 % 10/17/18 05:00 0 % 10/17/18 05:00 0 % 10/17/18 05:00 0 % 10/17/18 05:00 Nucleated RBC % Not Reportable 10/17/18 05:00 Seg Neutrophils # 11.5 K/mm3 (1.8-7.7) H 10/23/18 07:21 Seg Neutrophils # Man 10.1 K/mm3 (1.8-7.7) H 10/17/18 05:00 Band Neutrophils # 0.0 K/mm3 10/17/18 05:00 1.0 K/mm3 (1.2-5.4) L 10/17/18 05:00 Abs React Lymphs (Man) 0.0 K/mm3 10/17/18 05:00 0.2 K/mm3 (0.0-0.8) 10/17/18 05:00 0.2 K/mm3 (0.0-0.4) 10/17/18 05:00 0.0 K/mm3 (0.0-0.1) 10/17/18 05:00 0.0 K/mm3 10/17/18 05:00 0.0 K/mm3 10/17/18 05:00 0.0 K/mm3 10/17/18 05:00 Blast Cells # 0.0 K/mm3 10/17/18 05:00 WBC Morphology Not Reportable 10/17/18 05:00 Hypersegmented Neuts Not Reportable 10/17/18 05:00 Hyposegmented Neuts Not Reportable 10/17/18 05:00 Hypogranular Neuts Not Reportable 10/17/18 05:00 Not Reportable 10/17/18 05:00 Not Reportable 10/17/18 05:00 Not Reportable 10/17/18 05:00 Not Reportable 10/17/18 05:00 Not Reportable 10/17/18 05:00 Not Reportable 10/17/18 05:00 Consistent w auto 10/17/18 05:00 Not Reportable 10/17/18 05:00 Plt Clumps, EDTA Not Reportable 10/17/18 05:00 Not Reportable 10/17/18 05:00 Not Reportable 10/17/18 05:00 Not Reportable 10/17/18 05:00 Plt Morphology Comment Not Reportable 10/17/18 05:00 RBC Morphology Not Reportable 10/17/18 05:00 Dimorphic RBCs Not Reportable 10/17/18 05:00 Not Reportable 10/17/18 05:00 1+ 10/17/18 05:00 Few 10/17/18 05:00 1+ 10/17/18 05:00 Not Reportable 10/17/18 05:00 Rare 10/17/18 05:00 Not Reportable 10/17/18 05:00 Not Reportable 10/17/18 05:00 Not Reportable 10/17/18 05:00 Not Reportable 10/17/18 05:00 Not Reportable 10/17/18 05:00 Not Reportable 10/17/18 05:00 Not Reportable 10/17/18 05:00 Not Reportable 10/17/18 05:00 Not Reportable 10/17/18 05:00 Not Reportable 10/17/18 05:00 Not Reportable 10/17/18 05:00 Not Reportable 10/17/18 05:00 Not Reportable 10/17/18 05:00 Acanthocytes (Spur) Not Reportable 10/17/18 05:00 Rouleaux Not Reportable 10/17/18 05:00 Not Reportable 10/17/18 05:00 Not Reportable 10/17/18 05:00 Not Reportable 10/17/18 05:00 Not Reportable 10/17/18 05:00 Hem Pathologist Commnt No 10/17/18 05:00 PT 15.6 Sec. (12.2-14.9) H 10/25/18 06:00 INR 1.17 (0.87-1.13) H 10/25/18 06:00 APTT 71.0 Sec. (24.2-36.6) H* 10/22/18 11:20 Heparin Anti-Xa Level 0.14 U.I./ml (0.3-0.7) L 10/25/18 06:00 POC ABG pH 7.458 (7.35-7.45) H 10/19/18 19:56 POC ABG pCO2 37.9 (35-45) 10/19/18 19:56 POC ABG pO2 63 (80-105) L 10/19/18 19:56 POC ABG HCO3 26.8 (22-26 mml/L) 10/19/18 19:56 POC ABG Total CO2 28 (23-27mmol/L) 10/19/18 19:56 POC ABG O2 Sat 93 10/19/18 19:56 POC ABG Base Excess 3 ((-2) - (+3)mmol/L) 10/19/18 19:56 2 % 10/19/18 19:56 Sodium 137 mmol/L (137-145) 10/23/18 07:21 Potassium 4.0 mmol/L (3.6-5.0) 10/23/18 07:21 Chloride 100.4 mmol/L (98-107) 10/23/18 07:21 Carbon Dioxide 23 mmol/L (22-30) 10/23/18 07:21 18 mmol/L 10/23/18 07:21 BUN 18 mg/dL (7-17) H 10/23/18 07:21 1.5 mg/dL (0.7-1.2) H 10/23/18 07:21 Estimated GFR 45 ml/min 10/23/18 07:21 12 % 10/23/18 07:21 Glucose 308 mg/dL (65-100) H 10/23/18 07:21 POC Glucose 246 (70-105) H 10/25/18 06:11 10.2 % (4-6) H 10/07/18 22:08 Lactic Acid 1.50 mmol/L (0.7-2.0) 10/08/18 17:09 Calcium 8.4 mg/dL (8.4-10.2) 10/23/18 07:21 Phosphorus 7.40 mg/dL (2.5-4.5) H 10/07/18 22:08 Magnesium 1.70 mg/dL (1.7-2.3) 10/18/18 20:20 0.60 mg/dL (0.1-1.2) 10/17/18 05:00 < 0.2 mg/dL (0-0.2) 10/17/18 05:00 0.4 mg/dL 10/17/18 05:00 AST 14 units/L (5-40) 10/17/18 05:00 ALT 8 units/L (7-56) 10/17/18 05:00 104 units/L (35-129) 10/17/18 05:00 40.0 umol/L (25-60) 10/07/18 02:43 < 0.010 ng/mL (0.00-0.029) 10/07/18 08:59 0.20 mg/dL (0.00-1.30) 10/07/18 14:55 NT-Pro-B Natriuret Pep 2865 pg/mL (0-450) H 10/09/18 03:20 5.4 g/dL (6.3-8.2) L 10/17/18 05:00 2.2 g/dL (3.9-5) L 10/17/18 05:00 0.7 % 10/17/18 05:00 Fay (Yellow) 10/21/18 11:00 Cloudy (Clear) 10/21/18 11:00 5.0 (5.0-7.0) 10/21/18 11:00 Ur Specific [place] 1.022 (1.003-1.030) 10/21/18 11:00 >500 mg/dL (Negative) 10/21/18 11:00 50 mg/dL (Negative) 10/21/18 11:00 Neg mg/dL (Negative) 10/21/18 11:00 Lg (Negative) 10/21/18 11:00 Neg (Negative) 10/21/18 11:00 Neg (Negative) 10/21/18 11:00 < 2.0 mg/dL (<2.0) 10/21/18 11:00 Ur Leukocyte Esterase Mod (Negative) 10/21/18 11:00 125.0 /HPF (0.0-6.0) H 10/21/18 11:00 131.0 /HPF (0.0-6.0) 10/21/18 11:00 U Epithel Cells (Auto) 2.0 /HPF (0-13.0) 10/21/18 11:00 2+ /HPF 10/21/18 11:00 Hyaline Casts 3 /LPF 10/07/18 02:34 Few /HPF 10/07/18 02:34 3+ /HPF 10/21/18 11:00 Presumptive negative 10/07/18 02:34 Presumptive negative 10/07/18 02:34 Ur Barbiturates Screen Presumptive negative 10/07/18 02:34 Ur Phencyclidine Scrn Presumptive negative 10/07/18 02:34 Ur Amphetamines Screen Presumptive negative 10/07/18 02:34 U Benzodiazepines Scrn Presumptive negative 10/07/18 02:34 Presumptive negative 10/07/18 02:34 U Marijuana (THC) Screen Presumptive positive 10/07/18 02:34 Disclamer 10/07/18 02:34 Blood Type O POSITIVE 10/22/18 04:39 Antibody Screen Negative 10/22/18 04:39 Crossmatch See Detail 10/22/18 04:39 Active Medications - Current Medications Current Medications: Generic Name Dose Route Start Last Admin Trade Name Freq PRN Reason Stop Dose Admin Acetaminophen 650 mg 10/07/18 04:59 10/20/18 12:56 Tylenol PO 650 mg Q4H PRN Administration Pain MILD(1-3)/Fever >100.5/RODRIGUEZ Lipase/Protease/Amylase 1 each 10/08/18 10:00 Pancreaze 10,500 Unit FEEDTUBE PRN PRN For Clogged Feeding Tube Dextrose 50 ml 10/07/18 20:42 10/22/18 16:51 D50w (25gm) Syringe IV 50 ml PRN PRN Administration Hypoglycemia Furosemide 40 mg 10/19/18 11:00 10/25/18 09:12 Lasix PO 40 mg QDAY ULI Administration Hydralazine HCl 10 mg 10/07/18 05:07 10/14/18 08:35 Apresoline IV 10 mg Q4H PRN Administration Blood Pressure Hydrophilic Ointment 1 applic 10/07/18 02:40 Vaseline Lip Therapy TP Q2HR PRN Dry Lips Heparin Sodium/Sodium Chloride 25,000 unit in 500 mls @ 15 mls/hr 10/21/18 18:00 10/25/18 04:48 Heparin/ 0.45% Nacl-25,000 Unit/500 Ml IV 900 units/hr TITRATE ULI 18 mls/hr Administration Protocol 750 UNITS/HR Insulin Glargine 8 units 10/24/18 10:00 10/25/18 09:11 Lantus SUB-Q 8 units DAILY ULI Administration Insulin Human Lispro 7 unit 10/23/18 16:30 10/25/18 09:12 Humalog SUB-Q 7 unit AC ULI Administration Insulin Human Lispro 0 unit 10/25/18 11:30 Humalog SUB-Q ACHS ULI Protocol Lansoprazole 30 mg 10/16/18 22:00 10/25/18 09:11 Prevacid Solutab FEEDTUBE 30 mg BID ULI Administration Metoclopramide HCl 10 mg 10/11/18 13:00 10/12/18 19:32 Reglan IV 10 mg Q6HR PRN Administration Nausea And Vomiting Metoprolol Tartrate 12.5 mg 10/23/18 14:46 10/25/18 09:11 Lopressor PO 12.5 mg TID ULI Administration Multi-Ingred Cream/Lotion/Oil/Oint 1 applic 10/07/18 02:40 Artificial Tears Ophth Oint OU Q4HR PRN Dry Eye(s) Ondansetron HCl 4 mg 10/07/18 04:59 Zofran IV Q8H PRN N/V unrelieved by Kojo Quetiapine Fumarate 100 mg 10/09/18 22:00 10/24/18 21:06 Seroquel PO 100 mg QHS ULI Administration Simple Syrup 15 ml 10/08/18 10:00 Simple Syrup FEEDTUBE PRN PRN Hypoglycemia Simple Syrup 30 ml 10/08/18 10:00 10/09/18 01:09 Simple Syrup FEEDTUBE 30 ml PRN PRN Administration Hypoglycemia Sodium Bicarbonate 325 mg 10/08/18 10:00 Sodium Bicarbonate FEEDTUBE PRN PRN For Clogged Feeding Tube Sodium Chloride 10 ml 10/07/18 10:00 10/25/18 01:32 Sodium Chloride Flush Syringe 10 Ml IV Not Given BID [facility] Sodium Chloride 10 ml 10/07/18 04:59 10/18/18 07:15 Sodium Chloride Flush Syringe 10 Ml IV 10 ml PRN PRN Administration LINE FLUSH Warfarin Sodium 6 mg 10/25/18 17:00 Coumadin PO DAILY@1700 [facility] Nutrition/Malnutrition Assess - Dietary Evaluation Nutrition/Malnutrition Findings: Nutrition Notes Start: 10/07/18 12:17 Freq: Status: Active Protocol: Document 10/21/18 10:51 CP (Rec: 10/21/18 10:59 CP [id number]) Co-Sign 10/21/18 10:51 LP Nutrition Notes Initial or Follow up Reassessment Current Diagnosis CKD (stage V CKD),Diabetes, Hypertension,Heart Failure Current Diet NPO after midnight Labs/Tests Glu: 339 Pertinent Medications Warfarin Lasix Humalog Height 5 ft 2 in Weight 52.5 kg [place] Body Weight (kg) 50.00 BMI 21.2 Subjective/Other Information Pt screened for DNI. F/U for PO tolerance and diet advancement. Pt is currently NPO after midnight. Provided consistent vitamin K education during time of visit. Percent of energy/protein needs met: 0%/0% Burn Absent Trauma Absent #1 Nutrition Diagnosis Inadequate oral intake Diagnosis Progress(for reassessment Continues documentation) Is patient on ventilator? No Is Patient Ambulatory and/or Out of Bed No REE-([place]. Jeor-confined to bed) 1327.861 Calculation Used for Recommendations [place] [facility] Additional Notes Pro needs 0.8-1g/k-55g/ day Fluid needs 1ml/kcal Nutrition Intervention Change Diet Order: Continue current or per MD request Goal #1 Diet advancement Follow-Up By: 10/25/18 Additional Comments F/U: diet advancement
[2018-10-25] MEDS ORDERED: COUMADIN PO SCH (17:00)
[2018-10-26 05:11] LABS: Hematocrit 24.4 % (30.3-42.9)
[2018-10-26 05:22] LABS: INR 1.05 (0.87-1.13)
[2018-10-26] MEDS: HumaLOG SUB-Q SCH ×6 (08:30→23:16)
[2018-10-26] MEDS: HEPARIN/ 0.45% NACL-25,000 UNIT/500 ML 25,000 UNIT/500 ML BAG IV SCH (08:34)
[2018-10-26] MEDS: LOPRESSOR PO SCH ×3 (08:36→21:02)
[2018-10-26] MEDS: SODIUM CHLORIDE FLUSH SYRINGE 10 ML IV SCH ×2 (10:55→21:02)
[2018-10-26] MEDS: LASIX PO SCH (10:55)
[2018-10-26] MEDS: PREVACID SOLUTAB FEEDTUBE SCH ×2 (10:55→21:01)
[2018-10-26] MEDS: LANTUS SUB-Q SCH (10:56)
--- NOTE | 2018-10-26 12:31 | Progress Note ---
Assessment and Plan Assessment and plan: 48 year old woman with history of coronary artery disease, status post cabbage, diabetes, hypertension who was brought to the emergency room for altered mental status. She was found to have hypoglycemia, she was also having convulsions at the time of admission. The patient was intubated, sp dextrose she was put on the ventilator she was found to have pneumonia and CHF flare and started on antibiotics. patient has history of MV replacement and was on anticoagulation. Pneumonia, severe sepsis - Patient was on IV antibiotics and completed on 10/13 per ID Acute hypoxic respiratory failure on MV >96 hrs Was intubated and on mechanical ventilation - patient was extubated on 10/13 -Weaned to room air on 10/19, status epilepticus; Seizures when most likely due to hypoglycemia -Treated with dextrose - neurology consult appreciated Acute on chronic systolic CHF EF 40%, dilated ventricles -cardiology consult appreciated, sp lasix, now on PO lasix History of [facility] mitral valve replacement/hypercoaguable state/coagulopathy due to warfarin INR subtherapeutic, on heparin ggt INR is 1.17 and pharmacy to consult Severe anemia sp-transfusion, Gi workup showed neg egd and c scope, outpatient pill camera recommended Currently stable 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 INR is 1.17. History Interval history: Patient was seen and evaluated this morning, patient was extubated on 10/12/18. Patient was alert and oriented. She said she is feeling better. Hospitalist Physical - Physical exam Narrative exam: Patient is not in cardiopulmonary distress. The patient appeared well nourished and normally developed. Vital signs as documented. Head exam is unremarkable. No scleral icterus . Neck is without jugular venous distension, thyromegaly, or carotid bruits. Lungs are clear to auscultation. Cardiac exam reveals regular rate and Rhythm. Abdominal exam reveals normal bowel sounds Extremities are nonedematous. 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 - Constitutional Vitals: Temp Pulse Resp BP Pulse Ox 98.6 F 86 20 150/94 100 10/26/18 06:24 10/26/18 06:24 10/26/18 06:24 10/26/18 08:36 10/26/18 06:24 General appearance: Present: other (intubated, eyes open, no purposeful response to commands) Results - Labs CBC & Chem 7: 10/26/18 04:59 10/23/18 07:21 Labs: Laboratory Last Values WBC 14.4 K/mm3 (4.5-11.0) H 10/23/18 07:21 RBC 3.29 M/mm3 (3.65-5.03) L 10/23/18 07:21 Hgb 8.0 gm/dl (10.1-14.3) L 10/26/18 04:59 Hct 24.4 % (30.3-42.9) L 10/26/18 04:59 MCV 84 fl (79-97) 10/23/18 07:21 MCH 28 pg (28-32) 10/23/18 07:21 MCHC 33 % (30-34) 10/23/18 07:21 RDW 20.5 % (13.2-15.2) H 10/23/18 07:21 Plt Count 569 K/mm3 (140-440) H 10/25/18 06:00 Lymph % (Auto) 8.1 % (13.4-35.0) L 10/23/18 07:21 Murray % (Auto) 7.3 % (0.0-7.3) 10/23/18 07:21 Eos % (Auto) 3.8 % (0.0-4.3) 10/23/18 07:21 Baso % (Auto) 0.8 % (0.0-1.8) 10/23/18 07:21 Lymph # 1.2 K/mm3 (1.2-5.4) 10/23/18 07:21 Murray # 1.0 K/mm3 (0.0-0.8) H 10/23/18 07:21 Eos # 0.6 K/mm3 (0.0-0.4) H 10/23/18 07:21 Baso # 0.1 K/mm3 (0.0-0.1) 10/23/18 07:21 Add Manual Diff Complete 10/17/18 05:00 Total Counted 100 10/17/18 05:00 Seg Neutrophils % 80.0 % (40.0-70.0) H 10/23/18 07:21 Seg Neuts % (Manual) 87.0 % (40.0-70.0) H 10/17/18 05:00 0 % 10/17/18 05:00 9.0 % (13.4-35.0) L 10/17/18 05:00 Reactive Lymphs % (Man) 0 % 10/17/18 05:00 2.0 % (0.0-7.3) 10/17/18 05:00 2.0 % (0.0-4.3) 10/17/18 05:00 0 % (0.0-1.8) 10/17/18 05:00 0 % 10/17/18 05:00 0 % 10/17/18 05:00 0 % 10/17/18 05:00 0 % 10/17/18 05:00 Nucleated RBC % Not Reportable 10/17/18 05:00 Seg Neutrophils # 11.5 K/mm3 (1.8-7.7) H 10/23/18 07:21 Seg Neutrophils # Man 10.1 K/mm3 (1.8-7.7) H 10/17/18 05:00 Band Neutrophils # 0.0 K/mm3 10/17/18 05:00 1.0 K/mm3 (1.2-5.4) L 10/17/18 05:00 Abs React Lymphs (Man) 0.0 K/mm3 10/17/18 05:00 0.2 K/mm3 (0.0-0.8) 10/17/18 05:00 0.2 K/mm3 (0.0-0.4) 10/17/18 05:00 0.0 K/mm3 (0.0-0.1) 10/17/18 05:00 0.0 K/mm3 10/17/18 05:00 0.0 K/mm3 10/17/18 05:00 0.0 K/mm3 10/17/18 05:00 Blast Cells # 0.0 K/mm3 10/17/18 05:00 WBC Morphology Not Reportable 10/17/18 05:00 Hypersegmented Neuts Not Reportable 10/17/18 05:00 Hyposegmented Neuts Not Reportable 10/17/18 05:00 Hypogranular Neuts Not Reportable 10/17/18 05:00 Not Reportable 10/17/18 05:00 Not Reportable 10/17/18 05:00 Not Reportable 10/17/18 05:00 Not Reportable 10/17/18 05:00 Not Reportable 10/17/18 05:00 Not Reportable 10/17/18 05:00 Consistent w auto 10/17/18 05:00 Not Reportable 10/17/18 05:00 Plt Clumps, EDTA Not Reportable 10/17/18 05:00 Not Reportable 10/17/18 05:00 Not Reportable 10/17/18 05:00 Not Reportable 10/17/18 05:00 Plt Morphology Comment Not Reportable 10/17/18 05:00 RBC Morphology Not Reportable 10/17/18 05:00 Dimorphic RBCs Not Reportable 10/17/18 05:00 Not Reportable 10/17/18 05:00 1+ 10/17/18 05:00 Few 10/17/18 05:00 1+ 10/17/18 05:00 Not Reportable 10/17/18 05:00 Rare 10/17/18 05:00 Not Reportable 10/17/18 05:00 Not Reportable 10/17/18 05:00 Not Reportable 10/17/18 05:00 Not Reportable 10/17/18 05:00 Not Reportable 10/17/18 05:00 Not Reportable 10/17/18 05:00 Not Reportable 10/17/18 05:00 Not Reportable 10/17/18 05:00 Not Reportable 10/17/18 05:00 Not Reportable 10/17/18 05:00 Not Reportable 10/17/18 05:00 Not Reportable 10/17/18 05:00 Not Reportable 10/17/18 05:00 Acanthocytes (Spur) Not Reportable 10/17/18 05:00 Rouleaux Not Reportable 10/17/18 05:00 Not Reportable 10/17/18 05:00 Not Reportable 10/17/18 05:00 Not Reportable 10/17/18 05:00 Not Reportable 10/17/18 05:00 Hem Pathologist Commnt No 10/17/18 05:00 PT 14.4 Sec. (12.2-14.9) 10/26/18 04:59 INR 1.05 (0.87-1.13) 10/26/18 04:59 APTT 71.0 Sec. (24.2-36.6) H* 10/22/18 11:20 Heparin Anti-Xa Level 0.21 U.I./ml (0.3-0.7) L 10/26/18 04:59 POC ABG pH 7.458 (7.35-7.45) H 10/19/18 19:56 POC ABG pCO2 37.9 (35-45) 10/19/18 19:56 POC ABG pO2 63 (80-105) L 10/19/18 19:56 POC ABG HCO3 26.8 (22-26 mml/L) 10/19/18 19:56 POC ABG Total CO2 28 (23-27mmol/L) 10/19/18 19:56 POC ABG O2 Sat 93 10/19/18 19:56 POC ABG Base Excess 3 ((-2) - (+3)mmol/L) 10/19/18 19:56 2 % 10/19/18 19:56 Sodium 137 mmol/L (137-145) 10/23/18 07:21 Potassium 4.0 mmol/L (3.6-5.0) 10/23/18 07:21 Chloride 100.4 mmol/L (98-107) 10/23/18 07:21 Carbon Dioxide 23 mmol/L (22-30) 10/23/18 07:21 18 mmol/L 10/23/18 07:21 BUN 18 mg/dL (7-17) H 10/23/18 07:21 1.5 mg/dL (0.7-1.2) H 10/23/18 07:21 Estimated GFR 45 ml/min 10/23/18 07:21 12 % 10/23/18 07:21 Glucose 308 mg/dL (65-100) H 10/23/18 07:21 POC Glucose 336 (70-105) H 10/25/18 21:20 10.2 % (4-6) H 10/07/18 22:08 Lactic Acid 1.50 mmol/L (0.7-2.0) 10/08/18 17:09 Calcium 8.4 mg/dL (8.4-10.2) 10/23/18 07:21 Phosphorus 7.40 mg/dL (2.5-4.5) H 10/07/18 22:08 Magnesium 1.70 mg/dL (1.7-2.3) 10/18/18 20:20 0.60 mg/dL (0.1-1.2) 10/17/18 05:00 < 0.2 mg/dL (0-0.2) 10/17/18 05:00 0.4 mg/dL 10/17/18 05:00 AST 14 units/L (5-40) 10/17/18 05:00 ALT 8 units/L (7-56) 10/17/18 05:00 104 units/L (35-129) 10/17/18 05:00 40.0 umol/L (25-60) 10/07/18 02:43 < 0.010 ng/mL (0.00-0.029) 10/07/18 08:59 0.20 mg/dL (0.00-1.30) 10/07/18 14:55 NT-Pro-B Natriuret Pep 2865 pg/mL (0-450) H 10/09/18 03:20 5.4 g/dL (6.3-8.2) L 10/17/18 05:00 2.2 g/dL (3.9-5) L 10/17/18 05:00 0.7 % 10/17/18 05:00 Fay (Yellow) 10/21/18 11:00 Cloudy (Clear) 10/21/18 11:00 5.0 (5.0-7.0) 10/21/18 11:00 Ur Specific [facility] 1.022 (1.003-1.030) 10/21/18 11:00 >500 mg/dL (Negative) 10/21/18 11:00 50 mg/dL (Negative) 10/21/18 11:00 Neg mg/dL (Negative) 10/21/18 11:00 Lg (Negative) 10/21/18 11:00 Neg (Negative) 10/21/18 11:00 Neg (Negative) 10/21/18 11:00 < 2.0 mg/dL (<2.0) 10/21/18 11:00 Ur Leukocyte Esterase Mod (Negative) 10/21/18 11:00 125.0 /HPF (0.0-6.0) H 10/21/18 11:00 131.0 /HPF (0.0-6.0) 10/21/18 11:00 U Epithel Cells (Auto) 2.0 /HPF (0-13.0) 10/21/18 11:00 2+ /HPF 10/21/18 11:00 Hyaline Casts 3 /LPF 10/07/18 02:34 Few /HPF 10/07/18 02:34 3+ /HPF 10/21/18 11:00 Presumptive negative 10/07/18 02:34 Presumptive negative 10/07/18 02:34 Ur Barbiturates Screen Presumptive negative 10/07/18 02:34 Ur Phencyclidine Scrn Presumptive negative 10/07/18 02:34 Ur Amphetamines Screen Presumptive negative 10/07/18 02:34 U Benzodiazepines Scrn Presumptive negative 10/07/18 02:34 Presumptive negative 10/07/18 02:34 U Marijuana (THC) Screen Presumptive positive 10/07/18 02:34 Disclamer 10/07/18 02:34 Blood Type O POSITIVE 10/22/18 04:39 Antibody Screen Negative 10/22/18 04:39 Crossmatch See Detail 10/22/18 04:39 Active Medications - Current Medications Current Medications: Generic Name Dose Route Start Last Admin Trade Name Freq PRN Reason Stop Dose Admin Acetaminophen 650 mg 10/07/18 04:59 10/20/18 12:56 Tylenol PO 650 mg Q4H PRN Administration Pain MILD(1-3)/Fever >100.5/RODRIGUEZ Lipase/Protease/Amylase 1 each 10/08/18 10:[address] 10,500 Unit FEEDTUBE PRN PRN For Clogged Feeding Tube Dextrose 50 ml 10/07/18 20:42 10/22/18 16:51 D50w (25gm) Syringe IV 50 ml PRN PRN Administration Hypoglycemia Furosemide 40 mg 10/19/18 11:00 10/26/18 10:55 Lasix PO 40 mg QDAY ULI Administration Hydralazine HCl 10 mg 10/07/18 05:07 10/14/18 08:35 Apresoline IV 10 mg Q4H PRN Administration Blood Pressure Hydrophilic Ointment 1 applic 10/07/18 02:40 Vaseline Lip Therapy TP Q2HR PRN Dry Lips Heparin Sodium/Sodium Chloride 25,000 unit in 500 mls @ 15 mls/hr 10/21/18 18: 00 10/26/18 08:34 Heparin/ 0.45% Nacl-25,000 Unit/500 Ml IV 950 units/hr TITRATE ULI 19 mls/hr Administration Protocol 750 UNITS/HR Insulin Glargine 8 units 10/24/18 10:00 10/26/18 10:56 Lantus SUB-Q 8 units DAILY ULI Administration Insulin Human Lispro 7 unit 10/23/18 16:30 10/26/18 08:30 Humalog SUB-Q 7 unit AC ULI Administration Insulin Human Lispro 0 unit 10/25/18 11:30 10/26/18 08:30 Humalog SUB-Q 4 unit ACHS ULI Administration Protocol Lansoprazole 30 mg 10/16/18 22:00 10/26/18 10:55 Prevacid Solutab FEEDTUBE 30 mg BID ULI Administration Metoclopramide HCl 10 mg 10/11/18 13:00 10/12/18 19:32 Reglan IV 10 mg Q6HR PRN Administration Nausea And Vomiting Metoprolol Tartrate 12.5 mg 10/23/18 14:46 10/26/18 08:36 Lopressor PO 12.5 mg TID ULI Administration Multi-Ingred Cream/Lotion/Oil/Oint 1 applic 10/07/18 02:40 Artificial Tears Ophth Oint OU Q4HR PRN Dry Eye(s) Ondansetron HCl 4 mg 10/07/18 04:59 Zofran IV Q8H PRN N/V unrelieved by Kojo Quetiapine Fumarate 100 mg 10/09/18 22:00 10/25/18 22:08 Seroquel PO 100 mg QHS ULI Administration Simple Syrup 15 ml 10/08/18 10:00 Simple Syrup FEEDTUBE PRN PRN Hypoglycemia Simple Syrup 30 ml 10/08/18 10:00 10/09/18 01:09 Simple Syrup FEEDTUBE 30 ml PRN PRN Administration Hypoglycemia Sodium Bicarbonate 325 mg 10/08/18 10:00 Sodium Bicarbonate FEEDTUBE PRN PRN For Clogged Feeding Tube Sodium Chloride 10 ml 10/07/18 10:00 10/26/18 10:55 Sodium Chloride Flush Syringe 10 Ml IV 10 ml BID ULI Administration Sodium Chloride 10 ml 10/07/18 04:59 10/18/18 07:15 Sodium Chloride Flush Syringe 10 Ml IV 10 ml PRN PRN Administration LINE FLUSH Warfarin Sodium 7.5 mg 10/26/18 17:00 Coumadin PO DAILY@1700 [facility] Nutrition/Malnutrition Assess - Dietary Evaluation Nutrition/Malnutrition Findings: Nutrition Notes Start: 10/07/18 12:17 Freq: Status: Active Protocol: Document 10/25/18 17:02 RM (Rec: 10/25/18 17:05 RM [email or web address]) Nutrition Notes Initial or Follow up Reassessment Current Diagnosis CKD (stage V CKD),Diabetes, Hypertension,Heart Failure Other Pertinent Diagnosis DKA, AMS Current Diet Consistent CHO Labs/Tests Reviewed Pertinent Medications Lasix Height 5 ft 2 in Weight 53 kg [place] Body Weight (kg) 50.00 BMI 21.3 Subjective/Other Information Pt stated that her appetite is good and that she eats all of her meals. Noted lunch at bedside w/100% eaten. Percent of energy/protein needs met: 100%/100% Burn Absent Trauma Absent #1 Nutrition Diagnosis Inadequate oral intake As Evidenced by Signs and Symptoms pt meeting 100% of calorie and protein needs Diagnosis Progress(for reassessment Resolved documentation) Is patient on ventilator? No Is Patient Ambulatory and/or Out of Bed No REE-(Stoddard-St. Jeor-confined to bed) 1333.968 Calculation Used for Recommendations Stoddard-St Jeor Additional Notes Pro needs 0.8-1g/k-55g/ day Fluid needs 1ml/kcal Nutrition Intervention Change Diet Order: Continue current Goal #1 Continue to meet at least 75% of calorie and protein needs via PO intakes Anticipated Discharge Needs: Consistent CHO diet Revisit per MD consult or patient Sign Off request:
[2018-10-26] MEDS: D50W (25GM) Syringe IV PRN ×2 (16:02→16:06)
[2018-10-26] MEDS ORDERED: COUMADIN PO SCH (17:00)
--- NOTE | 2018-10-26 17:18 | Progress Note ---
Assessment and Plan Patient awake and resting on room air at this time. O2 saturation 100% on 2 litres O2. Patient says feeling better and breathng better. No acute respiratory distress. - Patient Problems (1) Acute respiratory failure with hypoxia Current Visit: Yes Status: Acute Plan to address problem: O2 2 litres via nasal canula. Albuterol/atrovent aerosol treatments q 6 hours. (2) Acute on chronic renal failure Current Visit: Yes Status: Acute Plan to address problem: Management as per nephrology. (3) Altered mental status Current Visit: Yes Status: Resolved Plan to address problem: Management as per primary care. (4) Heart failure with reduced ejection fraction Current Visit: Yes Status: Acute Plan to address problem: Management as per cardiology. (5) Diabetes Current Visit: Yes Status: Chronic Plan to address problem: Management as per primary care. (6) H/O mitral valve replacement with mechanical valve Current Visit: Yes Status: Chronic Plan to address problem: Management as per cardiology. Subjective Date of service: 10/26/18 Principal diagnosis: Ac hypoxemic resp failure; Seizures (?hypoglycemic); Ac encephalopathy(T/M) Interval history: Patient awake and resting on room air at this time. O2 saturation 100% on 2 litres O2. Patient says feeling better and breathng better. No acute respiratory distress. Objective Vital Signs - 12hr 10/26/18 10/26/18 10/26/18 06:24 08:36 12:41 Temperature 98.6 F 98.3 F Pulse Rate 86 83 Respiratory 20 18 Rate Blood Pressure 158/90 150/94 136/83 O2 Sat by Pulse 100 100 Oximetry 10/26/18 13:08 Temperature Pulse Rate 83 Respiratory Rate Blood Pressure 136/83 O2 Sat by Pulse Oximetry Constitutional: no acute distress, alert Eyes: non-icteric ENT: oropharynx moist, other (extubated) Neck: supple, no lymphadenopathy, no JVD Effort: mildly labored Ascultation: Bilateral: diminished breath sounds (bases), rales Percussion: Right: dull (base), Bilateral: not dull Cardiovascular: regular rate and rhythm, other (+ metalic valve click) Gastrointestinal: normoactive bowel sounds, soft, non-tender, non-distended, other (No HSM) Integumentary: normal Extremities: no cyanosis, no edema, pulses normal, no ischemia or petechiae Neurologic: non-focal exam (grossly), pupils equal and round, CN II-XII normal, motor strength normal and, other (somnolent) Psychiatric: other (flat affect) CBC and BMP: 10/26/18 04:59 10/26/18 15:54 ABG, PT/INR, D-dimer: ABG POC ABG pH 7.458 (7.35-7.45) H 10/19/18 19:56 POC ABG pCO2 37.9 (35-45) 10/19/18 19:56 POC ABG pO2 63 (80-105) L 10/19/18 19:56 POC ABG HCO3 26.8 (22-26 mml/L) 10/19/18 19:56 POC ABG Total CO2 28 (23-27mmol/L) 10/19/18 19:56 POC ABG O2 Sat 93 10/19/18 19:56 PT/INR, D-dimer PT 14.4 Sec. (12.2-14.9) 10/26/18 04:59 INR 1.05 (0.87-1.13) 10/26/18 04:59 Abnormal lab findings: Abnormal Labs 10/07/18 10/07/18 10/07/18 02:20 02:43 02:43 WBC RBC Hgb Hct MCH 25 L RDW 21.5 H Plt Count Lymph % (Auto) Turner % (Auto) Lymph # 0.9 L Turner # Eos # Baso # Seg Neutrophils % 78.4 H Seg Neuts % (Manual) Lymphocytes % (Manual) Seg Neutrophils # Seg Neutrophils # Man Lymphocytes # (Manual) PT INR APTT Heparin Anti-Xa Level POC ABG pH POC ABG pCO2 POC ABG pO2 Sodium Potassium Chloride 108.0 H Carbon Dioxide 21 L BUN Creatinine 1.5 H Glucose 115 H POC Glucose 136 H Hemoglobin A1c Lactic Acid Calcium Phosphorus AST 51 H Alkaline Phosphatase 257 H NT-Pro-B Natriuret Pep Total Protein Albumin Urine WBC (Auto) Crossmatch 10/07/18 10/07/18 10/07/18 02:43 04:32 05:12 WBC RBC Hgb Hct MCH RDW Plt Count Lymph % (Auto) Turner % (Auto) Lymph # Turner # Eos # Baso # Seg Neutrophils % Seg Neuts % (Manual) Lymphocytes % (Manual) Seg Neutrophils # Seg Neutrophils # Man Lymphocytes # (Manual) PT 25.4 H INR 2.14 H APTT Heparin Anti-Xa Level POC ABG pH POC ABG pCO2 33.6 L POC ABG pO2 69 L Sodium Potassium Chloride Carbon Dioxide BUN Creatinine Glucose POC Glucose Hemoglobin A1c Lactic Acid 2.40 H* Calcium Phosphorus AST Alkaline Phosphatase NT-Pro-B Natriuret Pep Total Protein Albumin Urine WBC (Auto) Crossmatch 10/07/18 10/07/18 10/07/18 06:28 18:39 20:26 WBC RBC Hgb Hct MCH RDW Plt Count Lymph % (Auto) Turner % (Auto) Lymph # Turner # Eos # Baso # Seg Neutrophils % Seg Neuts % (Manual) Lymphocytes % (Manual) Seg Neutrophils # Seg Neutrophils # Man Lymphocytes # (Manual) PT INR APTT Heparin Anti-Xa Level POC ABG pH POC ABG pCO2 POC ABG pO2 Sodium Potassium Chloride Carbon Dioxide BUN Creatinine Glucose POC Glucose 164 H 440 H > 500 H Hemoglobin A1c Lactic Acid Calcium Phosphorus AST Alkaline Phosphatase NT-Pro-B Natriuret Pep Total Protein Albumin Urine WBC (Auto) Crossmatch 10/07/18 10/07/18 10/07/18 20:28 21:53 22:08 WBC RBC Hgb Hct MCH RDW Plt Count Lymph % (Auto) Turner % (Auto) Lymph # Turner # Eos # Baso # Seg Neutrophils % Seg Neuts % (Manual) Lymphocytes % (Manual) Seg Neutrophils # Seg Neutrophils # Man Lymphocytes # (Manual) PT INR APTT Heparin Anti-Xa Level POC ABG pH POC ABG pCO2 POC ABG pO2 Sodium 136 L D Potassium 6.4 H* D Chloride Carbon Dioxide 10 L D BUN 30 H Creatinine 2.0 H Glucose 544 H* POC Glucose 483 H > 500 H Hemoglobin A1c Lactic Acid Calcium 7.0 L D Phosphorus AST Alkaline Phosphatase NT-Pro-B Natriuret Pep Total Protein Albumin Urine WBC (Auto) Crossmatch 10/07/18 10/07/18 10/07/18 22:08 22:08 22:56 WBC RBC Hgb Hct MCH RDW Plt Count Lymph % (Auto) Turner % (Auto) Lymph # Turner # Eos # Baso # Seg Neutrophils % Seg Neuts % (Manual) Lymphocytes % (Manual) Seg Neutrophils # Seg Neutrophils # Man Lymphocytes # (Manual) PT INR APTT Heparin Anti-Xa Level POC ABG pH POC ABG pCO2 POC ABG pO2 Sodium Potassium Chloride Carbon Dioxide BUN Creatinine Glucose POC Glucose 462 H Hemoglobin A1c 10.2 H Lactic Acid Calcium Phosphorus 7.40 H AST Alkaline Phosphatase NT-Pro-B Natriuret Pep Total Protein Albumin Urine WBC (Auto) Crossmatch 10/07/18 10/08/18 10/08/18 23:39 00:58 02:09 WBC RBC Hgb Hct MCH RDW Plt Count Lymph % (Auto) Turner % (Auto) Lymph # Turner # Eos # Baso # Seg Neutrophils % Seg Neuts % (Manual) Lymphocytes % (Manual) Seg Neutrophils # Seg Neutrophils # Man Lymphocytes # (Manual) PT INR APTT Heparin Anti-Xa Level POC ABG pH POC ABG pCO2 POC ABG pO2 Sodium Potassium Chloride Carbon Dioxide BUN Creatinine Glucose POC Glucose 396 H 375 H 285 H Hemoglobin A1c Lactic Acid Calcium Phosphorus AST Alkaline Phosphatase NT-Pro-B Natriuret Pep Total Protein Albumin Urine WBC (Auto) Crossmatch 10/08/18 10/08/18 10/08/18 03:10 03:33 04:05 WBC RBC Hgb Hct MCH RDW Plt Count Lymph % (Auto) Turner % (Auto) Lymph # Turner # Eos # Baso # Seg Neutrophils % Seg Neuts % (Manual) Lymphocytes % (Manual) Seg Neutrophils # Seg Neutrophils # Man Lymphocytes # (Manual) PT INR APTT Heparin Anti-Xa Level POC ABG pH 7.243 L POC ABG pCO2 33.8 L POC ABG pO2 126 H Sodium Potassium 5.3 H Chloride 110.7 H Carbon Dioxide 14 L BUN 33 H Creatinine 2.2 H Glucose 193 H POC Glucose 251 H Hemoglobin A1c Lactic Acid Calcium 7.0 L Phosphorus AST Alkaline Phosphatase 155 H NT-Pro-B Natriuret Pep Total Protein 5.2 L D Albumin 2.6 L Urine WBC (Auto) Crossmatch 10/08/18 10/08/18 10/08/18 04:05 04:05 04:09 WBC 11.8 H RBC 3.32 L Hgb 8.3 L Hct 27.5 L D MCH 25 L RDW 22.0 H Plt Count Lymph % (Auto) 6.8 L Turner % (Auto) 12.0 H Lymph # 0.8 L Turner # 1.4 H Eos # Baso # Seg Neutrophils % 80.6 H Seg Neuts % (Manual) Lymphocytes % (Manual) Seg Neutrophils # 9.5 H Seg Neutrophils # Man Lymphocytes # (Manual) PT INR APTT Heparin Anti-Xa Level POC ABG pH POC ABG pCO2 POC ABG pO2 Sodium Potassium Chloride Carbon Dioxide BUN Creatinine Glucose POC Glucose 175 H Hemoglobin A1c Lactic Acid 3.70 H* Calcium Phosphorus AST Alkaline Phosphatase NT-Pro-B Natriuret Pep Total Protein Albumin Urine WBC (Auto) Crossmatch 10/08/18 10/08/18 10/08/18 05:07 06:05 07:14 WBC RBC Hgb Hct MCH RDW Plt Count Lymph % (Auto) Turner % (Auto) Lymph # Turner # Eos # Baso # Seg Neutrophils % Seg Neuts % (Manual) Lymphocytes % (Manual) Seg Neutrophils # Seg Neutrophils # Man Lymphocytes # (Manual) PT INR APTT Heparin Anti-Xa Level POC ABG pH POC ABG pCO2 POC ABG pO2 Sodium Potassium Chloride Carbon Dioxide BUN Creatinine Glucose POC Glucose 125 H 122 H 147 H Hemoglobin A1c Lactic Acid Calcium Phosphorus AST Alkaline Phosphatase NT-Pro-B Natriuret Pep Total Protein Albumin Urine WBC (Auto) Crossmatch 10/08/18 10/08/18 10/08/18 07:22 08:09 08:47 WBC RBC Hgb Hct MCH RDW Plt Count Lymph % (Auto) Turner % (Auto) Lymph # Turner # Eos # Baso # Seg Neutrophils % Seg Neuts % (Manual) Lymphocytes % (Manual) Seg Neutrophils # Seg Neutrophils # Man Lymphocytes # (Manual) PT INR APTT Heparin Anti-Xa Level POC ABG pH POC ABG pCO2 POC ABG pO2 Sodium Potassium 5.2 H Chloride 112.4 H Carbon Dioxide 17 L BUN 32 H Creatinine 2.1 H Glucose 148 H POC Glucose 134 H 148 H Hemoglobin A1c Lactic Acid Calcium 6.6 L Phosphorus AST Alkaline Phosphatase NT-Pro-B Natriuret Pep Total Protein Albumin Urine WBC (Auto) Crossmatch 10/08/18 10/08/18 10/08/18 10:21 13:29 14:21 WBC RBC Hgb Hct MCH RDW Plt Count Lymph % (Auto) Turner % (Auto) Lymph # Turner # Eos # Baso # Seg Neutrophils % Seg Neuts % (Manual) Lymphocytes % (Manual) Seg Neutrophils # Seg Neutrophils # Man Lymphocytes # (Manual) PT INR APTT Heparin Anti-Xa Level POC ABG pH POC ABG pCO2 POC ABG pO2 Sodium Potassium Chloride Carbon Dioxide BUN Creatinine Glucose POC Glucose 115 H 109 H 118 H Hemoglobin A1c Lactic Acid Calcium Phosphorus AST Alkaline Phosphatase NT-Pro-B Natriuret Pep Total Protein Albumin Urine WBC (Auto) Crossmatch 10/08/18 10/08/18 10/08/18 15:27 17:00 17:00 WBC 11.3 H RBC 3.21 L Hgb 7.9 L Hct 25.7 L MCH 25 L RDW 21.8 H Plt Count Lymph % (Auto) 8.5 L Turner % (Auto) 7.7 H Lymph # 1.0 L Turner # 0.9 H Eos # Baso # Seg Neutrophils % 82.8 H Seg Neuts % (Manual) Lymphocytes % (Manual) Seg Neutrophils # 9.3 H Seg Neutrophils # Man Lymphocytes # (Manual) PT INR APTT Heparin Anti-Xa Level POC ABG pH POC ABG pCO2 POC ABG pO2 Sodium Potassium Chloride Carbon Dioxide BUN Creatinine Glucose POC Glucose 129 H Hemoglobin A1c Lactic Acid Calcium Phosphorus AST Alkaline Phosphatase NT-Pro-B Natriuret Pep 3097 H Total Protein Albumin Urine WBC (Auto) Crossmatch 10/08/18 10/08/18 10/08/18 17:07 17:12 18:22 WBC RBC Hgb Hct MCH RDW Plt Count Lymph % (Auto) Turner % (Auto) Lymph # Turner # Eos # Baso # Seg Neutrophils % Seg Neuts % (Manual) Lymphocytes % (Manual) Seg Neutrophils # Seg Neutrophils # Man Lymphocytes # (Manual) PT INR APTT Heparin Anti-Xa Level POC ABG pH 7.337 L POC ABG pCO2 32.0 L POC ABG pO2 130 H Sodium Potassium Chloride 115.5 H Carbon Dioxide 17 L BUN 30 H Creatinine 1.9 H Glucose 103 H POC Glucose 119 H Hemoglobin A1c Lactic Acid Calcium 6.9 L Phosphorus AST Alkaline Phosphatase NT-Pro-B Natriuret Pep Total Protein Albumin Urine WBC (Auto) Crossmatch 10/08/18 10/08/18 10/09/18 20:09 20:57 01:10 WBC RBC Hgb Hct MCH RDW Plt Count Lymph % (Auto) Turner % (Auto) Lymph # Turner # Eos # Baso # Seg Neutrophils % Seg Neuts % (Manual) Lymphocytes % (Manual) Seg Neutrophils # Seg Neutrophils # Man Lymphocytes # (Manual) PT INR APTT Heparin Anti-Xa Level POC ABG pH POC ABG pCO2 POC ABG pO2 Sodium Potassium Chloride 114.3 H 113.7 H Carbon Dioxide 15 L 14 L BUN 29 H 29 H Creatinine 2.1 H 2.0 H Glucose 132 H 39 L* POC Glucose 150 H Hemoglobin A1c Lactic Acid Calcium 6.7 L 6.9 L Phosphorus AST Alkaline Phosphatase NT-Pro-B Natriuret Pep Total Protein Albumin Urine WBC (Auto) Crossmatch 10/09/18 10/09/18 10/09/18 01:10 01:43 03:20 WBC RBC Hgb Hct MCH RDW Plt Count Lymph % (Auto) Turner % (Auto) Lymph # Turner # Eos # Baso # Seg Neutrophils % Seg Neuts % (Manual) Lymphocytes % (Manual) Seg Neutrophils # Seg Neutrophils # Man Lymphocytes # (Manual) PT INR APTT Heparin Anti-Xa Level POC ABG pH POC ABG pCO2 POC ABG pO2 Sodium Potassium Chloride Carbon Dioxide BUN Creatinine Glucose POC Glucose < 40 L < 40 L Hemoglobin A1c Lactic Acid Calcium Phosphorus AST Alkaline Phosphatase NT-Pro-B Natriuret Pep 2865 H Total Protein Albumin Urine WBC (Auto) Crossmatch 10/09/18 10/09/18 10/09/18 04:23 05:03 05:25 WBC RBC Hgb Hct MCH RDW Plt Count Lymph % (Auto) Turner % (Auto) Lymph # Turner # Eos # Baso # Seg Neutrophils % Seg Neuts % (Manual) Lymphocytes % (Manual) Seg Neutrophils # Seg Neutrophils # Man Lymphocytes # (Manual) PT INR APTT Heparin Anti-Xa Level POC ABG pH POC ABG pCO2 30.6 L 32.3 L POC ABG pO2 118 H Sodium Potassium Chloride Carbon Dioxide BUN Creatinine Glucose POC Glucose 148 H Hemoglobin A1c Lactic Acid Calcium Phosphorus AST Alkaline Phosphatase NT-Pro-B Natriuret Pep Total Protein Albumin Urine WBC (Auto) Crossmatch 10/09/18 10/09/18 10/09/18 06:00 08:34 09:58 WBC RBC Hgb Hct MCH RDW Plt Count Lymph % (Auto) Turner % (Auto) Lymph # Turner # Eos # Baso # Seg Neutrophils % Seg Neuts % (Manual) Lymphocytes % (Manual) Seg Neutrophils # Seg Neutrophils # Man Lymphocytes # (Manual) PT INR APTT Heparin Anti-Xa Level POC ABG pH POC ABG pCO2 POC ABG pO2 Sodium Potassium Chloride Carbon Dioxide BUN Creatinine Glucose POC Glucose 173 H 196 H 183 H Hemoglobin A1c Lactic Acid Calcium Phosphorus AST Alkaline Phosphatase NT-Pro-B Natriuret Pep Total Protein Albumin Urine WBC (Auto) Crossmatch 10/09/18 10/09/18 10/09/18 12:25 12:46 18:16 WBC RBC Hgb Hct MCH RDW Plt Count Lymph % (Auto) Turner % (Auto) Lymph # Turner # Eos # Baso # Seg Neutrophils % Seg Neuts % (Manual) Lymphocytes % (Manual) Seg Neutrophils # Seg Neutrophils # Man Lymphocytes # (Manual) PT INR APTT Heparin Anti-Xa Level POC ABG pH POC ABG pCO2 POC ABG pO2 Sodium Potassium Chloride 110.3 H Carbon Dioxide 16 L BUN 24 H Creatinine 1.8 H Glucose 207 H POC Glucose 208 H 177 H Hemoglobin A1c Lactic Acid Calcium 6.9 L Phosphorus AST Alkaline Phosphatase NT-Pro-B Natriuret Pep Total Protein Albumin Urine WBC (Auto) Crossmatch 10/09/18 10/10/18 10/10/18 21:11 00:11 05:41 WBC RBC Hgb Hct MCH RDW Plt Count Lymph % (Auto) Turner % (Auto) Lymph # Turner # Eos # Baso # Seg Neutrophils % Seg Neuts % (Manual) Lymphocytes % (Manual) Seg Neutrophils # Seg Neutrophils # Man Lymphocytes # (Manual) PT INR APTT Heparin Anti-Xa Level POC ABG pH POC ABG pCO2 POC ABG pO2 Sodium Potassium Chloride Carbon Dioxide BUN Creatinine Glucose POC Glucose 124 H 156 H 42 L Hemoglobin A1c Lactic Acid Calcium Phosphorus AST Alkaline Phosphatase NT-Pro-B Natriuret Pep Total Protein Albumin Urine WBC (Auto) Crossmatch 10/10/18 10/10/18 10/10/18 05:45 07:28 12:07 WBC RBC Hgb Hct MCH RDW Plt Count Lymph % (Auto) Turner % (Auto) Lymph # Turner # Eos # Baso # Seg Neutrophils % Seg Neuts % (Manual) Lymphocytes % (Manual) Seg Neutrophils # Seg Neutrophils # Man Lymphocytes # (Manual) PT INR APTT Heparin Anti-Xa Level POC ABG pH POC ABG pCO2 POC ABG pO2 Sodium 146 H D Potassium Chloride 111.2 H Carbon Dioxide BUN 21 H Creatinine 1.8 H Glucose 44 L POC Glucose 114 H 49 L Hemoglobin A1c Lactic Acid Calcium 7.4 L Phosphorus AST Alkaline Phosphatase NT-Pro-B Natriuret Pep Total Protein Albumin Urine WBC (Auto) Crossmatch 10/10/18 10/10/18 10/10/18 12:37 18:02 20:47 WBC RBC Hgb Hct MCH RDW Plt Count Lymph % (Auto) Turner % (Auto) Lymph # Turner # Eos # Baso # Seg Neutrophils % Seg Neuts % (Manual) Lymphocytes % (Manual) Seg Neutrophils # Seg Neutrophils # Man Lymphocytes # (Manual) PT INR APTT Heparin Anti-Xa Level POC ABG pH POC ABG pCO2 POC ABG pO2 Sodium Potassium Chloride Carbon Dioxide BUN Creatinine Glucose POC Glucose 142 H 49 L 162 H Hemoglobin A1c Lactic Acid Calcium Phosphorus AST Alkaline Phosphatase NT-Pro-B Natriuret Pep Total Protein Albumin Urine WBC (Auto) Crossmatch 10/10/18 10/10/18 10/10/18 21:45 22:19 23:50 WBC RBC Hgb Hct MCH RDW Plt Count Lymph % (Auto) Turner % (Auto) Lymph # Turner # Eos # Baso # Seg Neutrophils % Seg Neuts % (Manual) Lymphocytes % (Manual) Seg Neutrophils # Seg Neutrophils # Man Lymphocytes # (Manual) PT INR APTT Heparin Anti-Xa Level POC ABG pH 7.334 L POC ABG pCO2 47.0 H POC ABG pO2 53 L 79 L Sodium Potassium Chloride Carbon Dioxide BUN Creatinine Glucose POC Glucose 185 H Hemoglobin A1c Lactic Acid Calcium Phosphorus AST Alkaline Phosphatase NT-Pro-B Natriuret Pep Total Protein Albumin Urine WBC (Auto) Crossmatch 10/11/18 10/11/18 10/11/18 05:00 06:41 07:17 WBC RBC Hgb Hct MCH RDW Plt Count Lymph % (Auto) Turner % (Auto) Lymph # Turner # Eos # Baso # Seg Neutrophils % Seg Neuts % (Manual) Lymphocytes % (Manual) Seg Neutrophils # Seg Neutrophils # Man Lymphocytes # (Manual) PT INR APTT Heparin Anti-Xa Level POC ABG pH POC ABG pCO2 POC ABG pO2 Sodium Potassium Chloride Carbon Dioxide BUN Creatinine 1.7 H Glucose 43 L POC Glucose 48 L 129 H Hemoglobin A1c Lactic Acid Calcium 7.7 L Phosphorus AST Alkaline Phosphatase NT-Pro-B Natriuret Pep Total Protein Albumin Urine WBC (Auto) Crossmatch 10/11/18 10/11/18 10/11/18 11:14 13:32 14:25 WBC RBC 3.32 L Hgb 8.2 L Hct 26.4 L MCH 25 L RDW 21.6 H Plt Count Lymph % (Auto) Turner % (Auto) Lymph # Turner # Eos # Baso # Seg Neutrophils % Seg Neuts % (Manual) Lymphocytes % (Manual) Seg Neutrophils # Seg Neutrophils # Man Lymphocytes # (Manual) PT 21.7 H INR 1.76 H APTT 50.5 H Heparin Anti-Xa Level POC ABG pH POC ABG pCO2 POC ABG pO2 Sodium Potassium Chloride Carbon Dioxide BUN Creatinine Glucose POC Glucose 138 H Hemoglobin A1c Lactic Acid Calcium Phosphorus AST Alkaline Phosphatase NT-Pro-B Natriuret Pep Total Protein Albumin Urine WBC (Auto) Crossmatch 10/11/18 10/11/18 10/11/18 14:25 15:41 17:31 WBC RBC Hgb Hct MCH RDW Plt Count Lymph % (Auto) Turner % (Auto) Lymph # Turner # Eos # Baso # Seg Neutrophils % Seg Neuts % (Manual) Lymphocytes % (Manual) Seg Neutrophils # Seg Neutrophils # Man Lymphocytes # (Manual) PT 20.6 H INR 1.65 H APTT 54.9 H Heparin Anti-Xa Level POC ABG pH POC ABG pCO2 POC ABG pO2 53 L Sodium Potassium Chloride Carbon Dioxide BUN Creatinine Glucose POC Glucose 133 H Hemoglobin A1c Lactic Acid Calcium Phosphorus AST Alkaline Phosphatase NT-Pro-B Natriuret Pep Total Protein Albumin Urine WBC (Auto) Crossmatch 10/12/18 10/12/18 10/12/18 00:30 03:56 04:25 WBC RBC Hgb Hct MCH RDW Plt Count Lymph % (Auto) Turner % (Auto) Lymph # Turner # Eos # Baso # Seg Neutrophils % Seg Neuts % (Manual) Lymphocytes % (Manual) Seg Neutrophils # Seg Neutrophils # Man Lymphocytes # (Manual) PT INR APTT Heparin Anti-Xa Level POC ABG pH 7.514 H POC ABG pCO2 31.2 L POC ABG pO2 Sodium Potassium Chloride Carbon Dioxide BUN Creatinine 1.6 H Glucose 287 H POC Glucose 353 H Hemoglobin A1c Lactic Acid Calcium 8.0 L Phosphorus AST Alkaline Phosphatase NT-Pro-B Natriuret Pep Total Protein Albumin Urine WBC (Auto) Crossmatch 10/12/18 10/12/18 10/12/18 04:49 12:13 17:53 WBC RBC Hgb Hct MCH RDW Plt Count Lymph % (Auto) Turner % (Auto) Lymph # Turner # Eos # Baso # Seg Neutrophils % Seg Neuts % (Manual) Lymphocytes % (Manual) Seg Neutrophils # Seg Neutrophils # Man Lymphocytes # (Manual) PT INR APTT Heparin Anti-Xa Level POC ABG pH POC ABG pCO2 POC ABG pO2 Sodium Potassium Chloride Carbon Dioxide BUN Creatinine Glucose POC Glucose 297 H 290 H 211 H Hemoglobin A1c Lactic Acid Calcium Phosphorus AST Alkaline Phosphatase NT-Pro-B Natriuret Pep Total Protein Albumin Urine WBC (Auto) Crossmatch 10/12/18 10/12/18 10/13/18 18:57 21:35 04:50 WBC 11.8 H RBC 3.08 L Hgb 7.4 L Hct 24.2 L MCH 24 L RDW 21.5 H Plt Count Lymph % (Auto) Turner % (Auto) Lymph # Turner # Eos # Baso # Seg Neutrophils % Seg Neuts % (Manual) Lymphocytes % (Manual) Seg Neutrophils # Seg Neutrophils # Man Lymphocytes # (Manual) PT INR APTT Heparin Anti-Xa Level 1.74 H POC ABG pH 7.497 H POC ABG pCO2 33.2 L POC ABG pO2 71 L Sodium Potassium Chloride Carbon Dioxide BUN Creatinine Glucose POC Glucose Hemoglobin A1c Lactic Acid Calcium Phosphorus AST Alkaline Phosphatase NT-Pro-B Natriuret Pep Total Protein Albumin Urine WBC (Auto) Crossmatch 10/13/18 10/13/18 10/13/18 05:25 05:25 05:37 WBC 12.1 H RBC 3.02 L Hgb 7.4 L Hct 23.7 L MCH 25 L RDW 21.0 H Plt Count Lymph % (Auto) 9.6 L Turner % (Auto) 10.0 H Lymph # Turner # 1.2 H Eos # Baso # Seg Neutrophils % 76.2 H Seg Neuts % (Manual) Lymphocytes % (Manual) Seg Neutrophils # 9.2 H Seg Neutrophils # Man Lymphocytes # (Manual) PT INR APTT Heparin Anti-Xa Level POC ABG pH POC ABG pCO2 POC ABG pO2 Sodium Potassium Chloride Carbon Dioxide BUN Creatinine 1.6 H Glucose 175 H POC Glucose 165 H Hemoglobin A1c Lactic Acid Calcium 8.3 L Phosphorus AST Alkaline Phosphatase NT-Pro-B Natriuret Pep Total Protein Albumin Urine WBC (Auto) Crossmatch 10/13/18 10/13/18 10/13/18 06:45 11:12 17:19 WBC RBC Hgb Hct MCH RDW Plt Count Lymph % (Auto) Turner % (Auto) Lymph # Turner # Eos # Baso # Seg Neutrophils % Seg Neuts % (Manual) Lymphocytes % (Manual) Seg Neutrophils # Seg Neutrophils # Man Lymphocytes # (Manual) PT 17.4 H INR 1.34 H APTT Heparin Anti-Xa Level POC ABG pH POC ABG pCO2 POC ABG pO2 Sodium Potassium Chloride Carbon Dioxide BUN Creatinine Glucose POC Glucose 223 H 129 H Hemoglobin A1c Lactic Acid Calcium Phosphorus AST Alkaline Phosphatase NT-Pro-B Natriuret Pep Total Protein Albumin Urine WBC (Auto) Crossmatch 10/13/18 10/14/18 10/14/18 23:39 05:01 06:14 WBC RBC Hgb Hct MCH RDW Plt Count Lymph % (Auto) Turner % (Auto) Lymph # Turner # Eos # Baso # Seg Neutrophils % Seg Neuts % (Manual) Lymphocytes % (Manual) Seg Neutrophils # Seg Neutrophils # Man Lymphocytes # (Manual) PT INR APTT Heparin Anti-Xa Level POC ABG pH POC ABG pCO2 POC ABG pO2 Sodium Potassium Chloride Carbon Dioxide BUN Creatinine 1.5 H Glucose 264 H POC Glucose 171 H 226 H Hemoglobin A1c Lactic Acid Calcium 8.0 L Phosphorus AST Alkaline Phosphatase NT-Pro-B Natriuret Pep Total Protein Albumin Urine WBC (Auto) Crossmatch 10/14/18 10/14/18 10/14/18 06:14 12:24 19:33 WBC RBC Hgb Hct MCH RDW Plt Count Lymph % (Auto) Turner % (Auto) Lymph # Turner # Eos # Baso # Seg Neutrophils % Seg Neuts % (Manual) Lymphocytes % (Manual) Seg Neutrophils # Seg Neutrophils # Man Lymphocytes # (Manual) PT 22.1 H INR 1.80 H APTT Heparin Anti-Xa Level POC ABG pH POC ABG pCO2 POC ABG pO2 Sodium Potassium Chloride Carbon Dioxide BUN Creatinine Glucose POC Glucose 403 H 164 H Hemoglobin A1c Lactic Acid Calcium Phosphorus AST Alkaline Phosphatase NT-Pro-B Natriuret Pep Total Protein Albumin Urine WBC (Auto) Crossmatch 10/15/18 10/15/18 10/15/18 00:29 06:03 07:00 WBC RBC Hgb Hct MCH RDW Plt Count Lymph % (Auto) Turner % (Auto) Lymph # Turner # Eos # Baso # Seg Neutrophils % Seg Neuts % (Manual) Lymphocytes % (Manual) Seg Neutrophils # Seg Neutrophils # Man Lymphocytes # (Manual) PT INR APTT Heparin Anti-Xa Level POC ABG pH POC ABG pCO2 POC ABG pO2 Sodium Potassium Chloride Carbon Dioxide BUN 20 H Creatinine 1.7 H Glucose 308 H POC Glucose 237 H 282 H Hemoglobin A1c Lactic Acid Calcium 7.6 L Phosphorus AST Alkaline Phosphatase NT-Pro-B Natriuret Pep Total Protein Albumin Urine WBC (Auto) Crossmatch 10/15/18 10/15/18 10/15/18 07:00 08:03 10:27 WBC RBC Hgb 5.8 L* Hct 18.5 L* MCH RDW Plt Count Lymph % (Auto) Turner % (Auto) Lymph # Turner # Eos # Baso # Seg Neutrophils % Seg Neuts % (Manual) Lymphocytes % (Manual) Seg Neutrophils # Seg Neutrophils # Man Lymphocytes # (Manual) PT 46.1 H INR 4.52 H APTT Heparin Anti-Xa Level 0.25 L POC ABG pH POC ABG pCO2 POC ABG pO2 Sodium Potassium Chloride Carbon Dioxide BUN Creatinine Glucose POC Glucose Hemoglobin A1c Lactic Acid Calcium Phosphorus AST Alkaline Phosphatase NT-Pro-B Natriuret Pep Total Protein Albumin Urine WBC (Auto) Crossmatch See Detail 10/15/18 10/15/18 10/16/18 14:03 15:30 10:18 WBC RBC Hgb Hct MCH RDW Plt Count Lymph % (Auto) Turner % (Auto) Lymph # Turner # Eos # Baso # Seg Neutrophils % Seg Neuts % (Manual) Lymphocytes % (Manual) Seg Neutrophils # Seg Neutrophils # Man Lymphocytes # (Manual) PT 53.8 H INR 5.48 H* APTT Heparin Anti-Xa Level POC ABG pH POC ABG pCO2 POC ABG pO2 Sodium Potassium Chloride Carbon Dioxide BUN Creatinine Glucose POC Glucose 336 H 259 H Hemoglobin A1c Lactic Acid Calcium Phosphorus AST Alkaline Phosphatase NT-Pro-B Natriuret Pep Total Protein Albumin Urine WBC (Auto) Crossmatch 10/16/18 10/16/18 10/16/18 10:18 10:18 13:03 WBC 14.8 H RBC 3.03 L Hgb 8.2 L Hct 24.9 L D MCH 27 L RDW 19.2 H Plt Count Lymph % (Auto) 5.7 L Turner % (Auto) Lymph # 0.8 L Turner # 1.1 H Eos # Baso # 0.2 H Seg Neutrophils % 84.3 H Seg Neuts % (Manual) Lymphocytes % (Manual) Seg Neutrophils # 12.5 H Seg Neutrophils # Man Lymphocytes # (Manual) PT INR APTT Heparin Anti-Xa Level POC ABG pH POC ABG pCO2 POC ABG pO2 Sodium Potassium Chloride Carbon Dioxide 20 L BUN 21 H Creatinine 1.5 H Glucose 326 H POC Glucose 329 H Hemoglobin A1c Lactic Acid Calcium 7.8 L Phosphorus AST Alkaline Phosphatase NT-Pro-B Natriuret Pep Total Protein Albumin Urine WBC (Auto) Crossmatch 10/16/18 10/17/18 10/17/18 13:27 00:35 05:00 WBC RBC Hgb Hct MCH RDW Plt Count Lymph % (Auto) Turner % (Auto) Lymph # Turner # Eos # Baso # Seg Neutrophils % Seg Neuts % (Manual) Lymphocytes % (Manual) Seg Neutrophils # Seg Neutrophils # Man Lymphocytes # (Manual) PT 55.4 H 60.2 H INR 5.68 H* 6.30 H* APTT Heparin Anti-Xa Level POC ABG pH POC ABG pCO2 POC ABG pO2 Sodium Potassium Chloride Carbon Dioxide BUN Creatinine Glucose POC Glucose 407 H Hemoglobin A1c Lactic Acid Calcium Phosphorus AST Alkaline Phosphatase NT-Pro-B Natriuret Pep Total Protein Albumin Urine WBC (Auto) Crossmatch 10/17/18 10/17/18 10/17/18 05:00 05:00 05:29 WBC 11.6 H RBC 2.99 L Hgb 8.0 L Hct 24.2 L MCH 27 L RDW 19.2 H Plt Count Lymph % (Auto) Turner % (Auto) Lymph # Turner # Eos # Baso # Seg Neutrophils % Seg Neuts % (Manual) 87.0 H Lymphocytes % (Manual) 9.0 L Seg Neutrophils # Seg Neutrophils # Man 10.1 H Lymphocytes # (Manual) 1.0 L PT INR APTT Heparin Anti-Xa Level POC ABG pH POC ABG pCO2 POC ABG pO2 Sodium Potassium 3.4 L D Chloride Carbon Dioxide BUN Creatinine 1.4 H Glucose 170 H POC Glucose 156 H Hemoglobin A1c Lactic Acid Calcium 7.6 L Phosphorus AST Alkaline Phosphatase NT-Pro-B Natriuret Pep Total Protein 5.4 L Albumin 2.2 L Urine WBC (Auto) Crossmatch 10/17/18 10/17/18 10/18/18 11:59 17:06 00:21 WBC RBC Hgb Hct MCH RDW Plt Count Lymph % (Auto) Turner % (Auto) Lymph # Turner # Eos # Baso # Seg Neutrophils % Seg Neuts % (Manual) Lymphocytes % (Manual) Seg Neutrophils # Seg Neutrophils # Man Lymphocytes # (Manual) PT INR APTT Heparin Anti-Xa Level POC ABG pH POC ABG pCO2 POC ABG pO2 Sodium Potassium Chloride Carbon Dioxide BUN Creatinine Glucose POC Glucose 389 H 151 H 355 H Hemoglobin A1c Lactic Acid Calcium Phosphorus AST Alkaline Phosphatase NT-Pro-B Natriuret Pep Total Protein Albumin Urine WBC (Auto) Crossmatch 10/18/18 10/18/18 10/18/18 04:17 04:17 04:17 WBC RBC 3.01 L Hgb 8.1 L Hct 24.6 L MCH 27 L RDW 19.7 H Plt Count Lymph % (Auto) 12.7 L Turner % (Auto) Lymph # Turner # Eos # Baso # Seg Neutrophils % 76.3 H Seg Neuts % (Manual) Lymphocytes % (Manual) Seg Neutrophils # 8.2 H Seg Neutrophils # Man Lymphocytes # (Manual) PT 39.5 H INR 3.72 H APTT Heparin Anti-Xa Level POC ABG pH POC ABG pCO2 POC ABG pO2 Sodium Potassium 3.5 L Chloride Carbon Dioxide BUN Creatinine 1.5 H Glucose 115 H POC Glucose Hemoglobin A1c Lactic Acid Calcium 7.4 L Phosphorus AST Alkaline Phosphatase NT-Pro-B Natriuret Pep Total Protein Albumin Urine WBC (Auto) Crossmatch 10/18/18 10/18/18 10/18/18 06:45 13:39 17:12 WBC RBC Hgb Hct MCH RDW Plt Count Lymph % (Auto) Turner % (Auto) Lymph # Turner # Eos # Baso # Seg Neutrophils % Seg Neuts % (Manual) Lymphocytes % (Manual) Seg Neutrophils # Seg Neutrophils # Man Lymphocytes # (Manual) PT INR APTT Heparin Anti-Xa Level POC ABG pH POC ABG pCO2 POC ABG pO2 Sodium Potassium Chloride Carbon Dioxide BUN Creatinine Glucose POC Glucose 170 H 415 H 377 H Hemoglobin A1c Lactic Acid Calcium Phosphorus AST Alkaline Phosphatase NT-Pro-B Natriuret Pep Total Protein Albumin Urine WBC (Auto) Crossmatch 10/19/18 10/19/18 10/19/18 00:48 05:35 05:52 WBC RBC 2.84 L Hgb 7.7 L Hct 23.2 L MCH 27 L RDW 19.8 H Plt Count Lymph % (Auto) 11.0 L Turner % (Auto) Lymph # 1.1 L Turner # Eos # Baso # Seg Neutrophils % 78.5 H Seg Neuts % (Manual) Lymphocytes % (Manual) Seg Neutrophils # 8.1 H Seg Neutrophils # Man Lymphocytes # (Manual) PT INR APTT Heparin Anti-Xa Level POC ABG pH POC ABG pCO2 POC ABG pO2 Sodium Potassium Chloride Carbon Dioxide BUN Creatinine Glucose POC Glucose 308 H 116 H Hemoglobin A1c Lactic Acid Calcium Phosphorus AST Alkaline Phosphatase NT-Pro-B Natriuret Pep Total Protein Albumin Urine WBC (Auto) Crossmatch 10/19/18 10/19/18 10/19/18 05:52 07:12 09:41 WBC RBC Hgb 8.1 L Hct 24.6 L MCH RDW Plt Count Lymph % (Auto) Turner % (Auto) Lymph # Turner # Eos # Baso # Seg Neutrophils % Seg Neuts % (Manual) Lymphocytes % (Manual) Seg Neutrophils # Seg Neutrophils # Man Lymphocytes # (Manual) PT 18.1 H INR 1.40 H APTT Heparin Anti-Xa Level POC ABG pH POC ABG pCO2 POC ABG pO2 Sodium Potassium Chloride Carbon Dioxide BUN 21 H Creatinine 1.6 H Glucose 128 H POC Glucose Hemoglobin A1c Lactic Acid Calcium 7.7 L Phosphorus AST Alkaline Phosphatase NT-Pro-B Natriuret Pep Total Protein Albumin Urine WBC (Auto) Crossmatch 10/19/18 10/19/18 10/19/18 09:41 11:46 16:12 WBC RBC Hgb Hct MCH RDW Plt Count Lymph % (Auto) Turner % (Auto) Lymph # Turner # Eos # Baso # Seg Neutrophils % Seg Neuts % (Manual) Lymphocytes % (Manual) Seg Neutrophils # Seg Neutrophils # Man Lymphocytes # (Manual) PT 17.7 H INR 1.36 H APTT Heparin Anti-Xa Level POC ABG pH POC ABG pCO2 POC ABG pO2 Sodium Potassium Chloride Carbon Dioxide BUN Creatinine Glucose POC Glucose 212 H 260 H Hemoglobin A1c Lactic Acid Calcium Phosphorus AST Alkaline Phosphatase NT-Pro-B Natriuret Pep Total Protein Albumin Urine WBC (Auto) Crossmatch 10/19/18 10/19/18 10/19/18 19:56 22:09 Unknown WBC RBC Hgb Hct MCH RDW Plt Count Lymph % (Auto) Turner % (Auto) Lymph # Turner # Eos # Baso # Seg Neutrophils % Seg Neuts % (Manual) Lymphocytes % (Manual) Seg Neutrophils # Seg Neutrophils # Man Lymphocytes # (Manual) PT INR APTT Heparin Anti-Xa Level 0.19 L POC ABG pH 7.458 H POC ABG pCO2 POC ABG pO2 63 L Sodium Potassium Chloride Carbon Dioxide BUN Creatinine Glucose POC Glucose 216 H Hemoglobin A1c Lactic Acid Calcium Phosphorus AST Alkaline Phosphatase NT-Pro-B Natriuret Pep Total Protein Albumin Urine WBC (Auto) Crossmatch 10/20/18 10/20/18 10/20/18 03:00 03:00 03:00 WBC 14.8 H RBC 2.81 L Hgb 7.5 L Hct 23.1 L MCH 27 L RDW 20.0 H Plt Count Lymph % (Auto) 11.5 L Turner % (Auto) Lymph # Turner # 0.9 H Eos # Baso # Seg Neutrophils % 79.7 H Seg Neuts % (Manual) Lymphocytes % (Manual) Seg Neutrophils # 11.8 H Seg Neutrophils # Man Lymphocytes # (Manual) PT 16.9 H INR 1.29 H APTT Heparin Anti-Xa Level 0.24 L POC ABG pH POC ABG pCO2 POC ABG pO2 Sodium Potassium Chloride 97.8 L Carbon Dioxide BUN 20 H Creatinine 1.5 H Glucose 206 H POC Glucose Hemoglobin A1c Lactic Acid Calcium 7.8 L Phosphorus AST Alkaline Phosphatase NT-Pro-B Natriuret Pep Total Protein Albumin Urine WBC (Auto) Crossmatch 10/20/18 10/20/18 10/20/18 06:59 10:20 10:59 WBC RBC Hgb Hct MCH RDW Plt Count Lymph % (Auto) Turner % (Auto) Lymph # Turner # Eos # Baso # Seg Neutrophils % Seg Neuts % (Manual) Lymphocytes % (Manual) Seg Neutrophils # Seg Neutrophils # Man Lymphocytes # (Manual) PT 15.5 H INR 1.16 H APTT Heparin Anti-Xa Level < 0.10 L POC ABG pH POC ABG pCO2 POC ABG pO2 Sodium Potassium Chloride Carbon Dioxide BUN Creatinine Glucose POC Glucose 348 H 227 H Hemoglobin A1c Lactic Acid Calcium Phosphorus AST Alkaline Phosphatase NT-Pro-B Natriuret Pep Total Protein Albumin Urine WBC (Auto) Crossmatch 10/20/18 10/20/18 10/21/18 16:15 17:14 00:53 WBC RBC Hgb Hct MCH RDW Plt Count Lymph % (Auto) Turner % (Auto) Lymph # Turner # Eos # Baso # Seg Neutrophils % Seg Neuts % (Manual) Lymphocytes % (Manual) Seg Neutrophils # Seg Neutrophils # Man Lymphocytes # (Manual) PT INR APTT Heparin Anti-Xa Level 0.24 L POC ABG pH POC ABG pCO2 POC ABG pO2 Sodium Potassium Chloride Carbon Dioxide BUN Creatinine Glucose POC Glucose 279 H 136 H Hemoglobin A1c Lactic Acid Calcium Phosphorus AST Alkaline Phosphatase NT-Pro-B Natriuret Pep Total Protein Albumin Urine WBC (Auto) Crossmatch 10/21/18 10/21/18 10/21/18 05:45 05:45 05:45 WBC 15.8 H RBC 2.79 L Hgb 7.5 L Hct 22.9 L MCH 27 L RDW 19.8 H Plt Count Lymph % (Auto) 7.2 L Turner % (Auto) Lymph # 1.1 L Turner # Eos # Baso # Seg Neutrophils % 85.7 H Seg Neuts % (Manual) Lymphocytes % (Manual) Seg Neutrophils # 13.5 H Seg Neutrophils # Man Lymphocytes # (Manual) PT 16.9 H INR 1.29 H APTT Heparin Anti-Xa Level POC ABG pH POC ABG pCO2 POC ABG pO2 Sodium Potassium Chloride Carbon Dioxide BUN 18 H Creatinine 1.4 H Glucose 339 H POC Glucose Hemoglobin A1c Lactic Acid Calcium 8.3 L Phosphorus AST Alkaline Phosphatase NT-Pro-B Natriuret Pep Total Protein Albumin Urine WBC (Auto) Crossmatch 10/21/18 10/21/18 10/21/18 08:00 10:13 11:00 WBC RBC Hgb Hct MCH RDW Plt Count Lymph % (Auto) Turner % (Auto) Lymph # Turner # Eos # Baso # Seg Neutrophils % Seg Neuts % (Manual) Lymphocytes % (Manual) Seg Neutrophils # Seg Neutrophils # Man Lymphocytes # (Manual) PT INR APTT Heparin Anti-Xa Level POC ABG pH POC ABG pCO2 POC ABG pO2 Sodium Potassium Chloride Carbon Dioxide BUN Creatinine Glucose POC Glucose 398 H 295 H Hemoglobin A1c Lactic Acid Calcium Phosphorus AST Alkaline Phosphatase NT-Pro-B Natriuret Pep Total Protein Albumin Urine WBC (Auto) 125.0 H Crossmatch 10/21/18 10/21/18 10/21/18 11:18 17:20 17:52 WBC RBC Hgb Hct MCH RDW Plt Count Lymph % (Auto) Turner % (Auto) Lymph # Turner # Eos # Baso # Seg Neutrophils % Seg Neuts % (Manual) Lymphocytes % (Manual) Seg Neutrophils # Seg Neutrophils # Man Lymphocytes # (Manual) PT 17.2 H INR 1.32 H APTT 40.0 H Heparin Anti-Xa Level POC ABG pH POC ABG pCO2 POC ABG pO2 Sodium Potassium Chloride Carbon Dioxide BUN Creatinine Glucose POC Glucose 235 H 271 H Hemoglobin A1c Lactic Acid Calcium Phosphorus AST Alkaline Phosphatase NT-Pro-B Natriuret Pep Total Protein Albumin Urine WBC (Auto) Crossmatch 10/21/18 10/22/18 10/22/18 23:41 00:47 04:39 WBC 16.1 H RBC 2.69 L Hgb 6.7 L 7.3 L Hct 19.8 L* 22.3 L MCH 27 L RDW 20.4 H Plt Count Lymph % (Auto) 6.9 L Turner % (Auto) Lymph # 1.1 L Turner # 1.0 H Eos # Baso # Seg Neutrophils % 85.3 H Seg Neuts % (Manual) Lymphocytes % (Manual) Seg Neutrophils # 13.8 H Seg Neutrophils # Man Lymphocytes # (Manual) PT INR APTT Heparin Anti-Xa Level POC ABG pH POC ABG pCO2 POC ABG pO2 Sodium Potassium Chloride Carbon Dioxide BUN Creatinine Glucose POC Glucose 157 H Hemoglobin A1c Lactic Acid Calcium Phosphorus AST Alkaline Phosphatase NT-Pro-B Natriuret Pep Total Protein Albumin Urine WBC (Auto) Crossmatch 10/22/18 10/22/18 10/22/18 04:39 04:39 04:39 WBC RBC Hgb Hct MCH RDW Plt Count Lymph % (Auto) Turner % (Auto) Lymph # Turner # Eos # Baso # Seg Neutrophils % Seg Neuts % (Manual) Lymphocytes % (Manual) Seg Neutrophils # Seg Neutrophils # Man Lymphocytes # (Manual) PT 20.3 H INR 1.62 H APTT Heparin Anti-Xa Level 0.12 L POC ABG pH POC ABG pCO2 POC ABG pO2 Sodium Potassium Chloride Carbon Dioxide BUN 20 H Creatinine 1.7 H Glucose 255 H POC Glucose Hemoglobin A1c Lactic Acid Calcium 8.1 L Phosphorus AST Alkaline Phosphatase NT-Pro-B Natriuret Pep Total Protein Albumin Urine WBC (Auto) Crossmatch See Detail 10/22/18 10/22/18 10/22/18 05:09 11:20 11:20 WBC RBC Hgb 7.4 L Hct 21.9 L MCH RDW Plt Count 457 H Lymph % (Auto) Turner % (Auto) Lymph # Turner # Eos # Baso # Seg Neutrophils % Seg Neuts % (Manual) Lymphocytes % (Manual) Seg Neutrophils # Seg Neutrophils # Man Lymphocytes # (Manual) PT 20.8 H INR 1.67 H APTT 71.0 H* Heparin Anti-Xa Level 0.20 L POC ABG pH POC ABG pCO2 POC ABG pO2 Sodium Potassium Chloride Carbon Dioxide BUN Creatinine Glucose POC Glucose 297 H Hemoglobin A1c Lactic Acid Calcium Phosphorus AST Alkaline Phosphatase NT-Pro-B Natriuret Pep Total Protein Albumin Urine WBC (Auto) Crossmatch 10/22/18 10/22/18 10/22/18 12:09 16:51 17:11 WBC RBC Hgb Hct MCH RDW Plt Count Lymph % (Auto) Turner % (Auto) Lymph # Turner # Eos # Baso # Seg Neutrophils % Seg Neuts % (Manual) Lymphocytes % (Manual) Seg Neutrophils # Seg Neutrophils # Man Lymphocytes # (Manual) PT INR APTT Heparin Anti-Xa Level POC ABG pH POC ABG pCO2 POC ABG pO2 Sodium Potassium Chloride Carbon Dioxide BUN Creatinine Glucose 115 H POC Glucose 125 H < 40 L Hemoglobin A1c Lactic Acid Calcium Phosphorus AST Alkaline Phosphatase NT-Pro-B Natriuret Pep Total Protein Albumin Urine WBC (Auto) Crossmatch 10/22/18 10/23/18 10/23/18 17:13 00:08 06:19 WBC RBC Hgb Hct MCH RDW Plt Count Lymph % (Auto) Turner % (Auto) Lymph # Turner # Eos # Baso # Seg Neutrophils % Seg Neuts % (Manual) Lymphocytes % (Manual) Seg Neutrophils # Seg Neutrophils # Man Lymphocytes # (Manual) PT INR APTT Heparin Anti-Xa Level POC ABG pH POC ABG pCO2 POC ABG pO2 Sodium Potassium Chloride Carbon Dioxide BUN Creatinine Glucose POC Glucose 126 H 192 H 249 H Hemoglobin A1c Lactic Acid Calcium Phosphorus AST Alkaline Phosphatase NT-Pro-B Natriuret Pep Total Protein Albumin Urine WBC (Auto) Crossmatch 10/23/18 10/23/18 10/23/18 07:21 07:21 07:21 WBC 14.4 H RBC 3.29 L Hgb 9.2 L Hct 27.6 L MCH RDW 20.5 H Plt Count 505 H Lymph % (Auto) 8.1 L Turner % (Auto) Lymph # Turner # 1.0 H Eos # 0.6 H Baso # Seg Neutrophils % 80.0 H Seg Neuts % (Manual) Lymphocytes % (Manual) Seg Neutrophils # 11.5 H Seg Neutrophils # Man Lymphocytes # (Manual) PT 21.6 H INR 1.75 H APTT Heparin Anti-Xa Level POC ABG pH POC ABG pCO2 POC ABG pO2 Sodium Potassium Chloride Carbon Dioxide BUN 18 H Creatinine 1.5 H Glucose 308 H POC Glucose Hemoglobin A1c Lactic Acid Calcium Phosphorus AST Alkaline Phosphatase NT-Pro-B Natriuret Pep Total Protein Albumin Urine WBC (Auto) Crossmatch 10/23/18 10/23/18 10/23/18 10:34 11:56 17:07 WBC RBC Hgb Hct MCH RDW Plt Count Lymph % (Auto) Turner % (Auto) Lymph # Turner # Eos # Baso # Seg Neutrophils % Seg Neuts % (Manual) Lymphocytes % (Manual) Seg Neutrophils # Seg Neutrophils # Man Lymphocytes # (Manual) PT INR APTT Heparin Anti-Xa Level POC ABG pH POC ABG pCO2 POC ABG pO2 Sodium Potassium Chloride Carbon Dioxide BUN Creatinine Glucose POC Glucose > 500 H 440 H 387 H Hemoglobin A1c Lactic Acid Calcium Phosphorus AST Alkaline Phosphatase NT-Pro-B Natriuret Pep Total Protein Albumin Urine WBC (Auto) Crossmatch 10/23/18 10/24/18 10/24/18 23:44 06:18 06:39 WBC RBC Hgb 7.9 L Hct 24.3 L MCH RDW Plt Count 522 H Lymph % (Auto) Turner % (Auto) Lymph # Turner # Eos # Baso # Seg Neutrophils % Seg Neuts % (Manual) Lymphocytes % (Manual) Seg Neutrophils # Seg Neutrophils # Man Lymphocytes # (Manual) PT INR APTT Heparin Anti-Xa Level POC ABG pH POC ABG pCO2 POC ABG pO2 Sodium Potassium Chloride Carbon Dioxide BUN Creatinine Glucose POC Glucose 172 H 154 H Hemoglobin A1c Lactic Acid Calcium Phosphorus AST Alkaline Phosphatase NT-Pro-B Natriuret Pep Total Protein Albumin Urine WBC (Auto) Crossmatch 10/24/18 10/24/18 10/24/18 08:05 11:12 18:50 WBC RBC Hgb Hct MCH RDW Plt Count Lymph % (Auto) Turner % (Auto) Lymph # Turner # Eos # Baso # Seg Neutrophils % Seg Neuts % (Manual) Lymphocytes % (Manual) Seg Neutrophils # Seg Neutrophils # Man Lymphocytes # (Manual) PT 20.5 H INR 1.64 H APTT Heparin Anti-Xa Level < 0.10 L POC ABG pH POC ABG pCO2 POC ABG pO2 Sodium Potassium Chloride Carbon Dioxide BUN Creatinine Glucose POC Glucose 203 H Hemoglobin A1c Lactic Acid Calcium Phosphorus AST Alkaline Phosphatase NT-Pro-B Natriuret Pep Total Protein Albumin Urine WBC (Auto) Crossmatch 10/25/18 10/25/18 10/25/18 01:29 06:00 06:00 WBC RBC Hgb 7.8 L Hct 23.9 L MCH RDW Plt Count 569 H Lymph % (Auto) Turner % (Auto) Lymph # Turner # Eos # Baso # Seg Neutrophils % Seg Neuts % (Manual) Lymphocytes % (Manual) Seg Neutrophils # Seg Neutrophils # Man Lymphocytes # (Manual) PT 15.6 H INR 1.17 H APTT Heparin Anti-Xa Level POC ABG pH POC ABG pCO2 POC ABG pO2 Sodium Potassium Chloride Carbon Dioxide BUN Creatinine Glucose POC Glucose 146 H Hemoglobin A1c Lactic Acid Calcium Phosphorus AST Alkaline Phosphatase NT-Pro-B Natriuret Pep Total Protein Albumin Urine WBC (Auto) Crossmatch 10/25/18 10/25/18 10/25/18 06:00 06:11 12:05 WBC RBC Hgb Hct MCH RDW Plt Count Lymph % (Auto) Turner % (Auto) Lymph # Turner # Eos # Baso # Seg Neutrophils % Seg Neuts % (Manual) Lymphocytes % (Manual) Seg Neutrophils # Seg Neutrophils # Man Lymphocytes # (Manual) PT INR APTT Heparin Anti-Xa Level 0.14 L POC ABG pH POC ABG pCO2 POC ABG pO2 Sodium Potassium Chloride Carbon Dioxide BUN Creatinine Glucose POC Glucose 246 H 283 H Hemoglobin A1c Lactic Acid Calcium Phosphorus AST Alkaline Phosphatase NT-Pro-B Natriuret Pep Total Protein Albumin Urine WBC (Auto) Crossmatch 10/25/18 10/25/18 10/26/18 17:53 21:20 04:59 WBC RBC Hgb 8.0 L Hct 24.4 L MCH RDW Plt Count Lymph % (Auto) Turner % (Auto) Lymph # Turner # Eos # Baso # Seg Neutrophils % Seg Neuts % (Manual) Lymphocytes % (Manual) Seg Neutrophils # Seg Neutrophils # Man Lymphocytes # (Manual) PT INR APTT Heparin Anti-Xa Level POC ABG pH POC ABG pCO2 POC ABG pO2 Sodium Potassium Chloride Carbon Dioxide BUN Creatinine Glucose POC Glucose 298 H 336 H Hemoglobin A1c Lactic Acid Calcium Phosphorus AST Alkaline Phosphatase NT-Pro-B Natriuret Pep Total Protein Albumin Urine WBC (Auto) Crossmatch 10/26/18 10/26/18 10/26/18 04:59 07:48 12:33 WBC RBC Hgb Hct MCH RDW Plt Count Lymph % (Auto) Turner % (Auto) Lymph # Turner # Eos # Baso # Seg Neutrophils % Seg Neuts % (Manual) Lymphocytes % (Manual) Seg Neutrophils # Seg Neutrophils # Man Lymphocytes # (Manual) PT INR APTT Heparin Anti-Xa Level 0.21 L 0.19 L POC ABG pH POC ABG pCO2 POC ABG pO2 Sodium Potassium Chloride Carbon Dioxide BUN Creatinine Glucose POC Glucose 339 H Hemoglobin A1c Lactic Acid Calcium Phosphorus AST Alkaline Phosphatase NT-Pro-B Natriuret Pep Total Protein Albumin Urine WBC (Auto) Crossmatch 10/26/18 15:54 WBC RBC Hgb Hct MCH RDW Plt Count Lymph % (Auto) Turner % (Auto) Lymph # Turner # Eos # Baso # Seg Neutrophils % Seg Neuts % (Manual) Lymphocytes % (Manual) Seg Neutrophils # Seg Neutrophils # Man Lymphocytes # (Manual) PT INR APTT Heparin Anti-Xa Level POC ABG pH POC ABG pCO2 POC ABG pO2 Sodium Potassium Chloride Carbon Dioxide BUN Creatinine Glucose 49 L POC Glucose Hemoglobin A1c Lactic Acid Calcium Phosphorus AST Alkaline Phosphatase NT-Pro-B Natriuret Pep Total Protein Albumin Urine WBC (Auto) Crossmatch Allied health notes reviewed: nursing
[2018-10-27 03:12] LABS: Hematocrit 23.8 % (30.3-42.9); Hemoglobin 7.9 gm/dl (10.1-14.3)
[2018-10-27 07:20] LABS: INR 1.06 (0.87-1.13)
[2018-10-27] MEDS: HumaLOG SUB-Q SCH ×4 (08:30→22:43)
--- NOTE | 2018-10-27 08:38 | Progress Note ---
Assessment and Plan Acute hypoxemic respiratory failure, s/p mechanical ventilatory support. Symptomatic hypoglycemia. Seizures, possibly related to the hypoglycemia. Acute encephalopathy, toxic metabolic. Mild Hyponatremia Hyperkalemia s/p CABG with mechanical valve History of cardiomyopathy. (EF 40%) Right pleural effusion with infiltrate- probable aspiration History of diabetes. Hypertension. Coagulopathy, supratherapeutic INR -Wean supplemental oxygen to keep O2 sats 88-90% -PRN ABGs/CXR, follow up CXR in the morning for follow up on pleural effusion and infiltrate -Diuresis as tolerated by renal function and hemodynamics -Heart failure measures -Monitor renal indices closely -Avoid nephrotoxic agents, adjust all medications for CrCL -Strict intake and output monitoring -VTE prophylaxis- anticoagulated. Has a mechanical valve Coumadin, daily PT/INR, goal INR is 2.5-3.5 Falls precautions Antibiotics, completed course Supportive transfusions as indicated -Accuchecks with glycemic control. Target glucose of 140-180 mg/dL -Bronchodilators with pulmonary hygiene per RT -Maintenance of sleep -wake cycle -Influenza and pneumonia vaccination per protocol -PT/OT as tolerated -Discharge planning Subjective Date of service: 10/27/18 Principal diagnosis: Ac hypoxemic resp failure; Seizures (?hypoglycemic); Ac encephalopathy(T/M) Interval history: Patient is seen today for: Acute hypoxemic respiratory failure, s/p mechanical ventilatory support; Symptomatic hypoglycemia; Seizures, possibly related to the hypoglycemia; Acute encephalopathy, toxic metabolic; Mild Hyponatremia; History of cardiomyopathy. (EF 40%) Seen and examined at bedside; 24hour events reviewed; nursing and respiratory care staff consulted; no adverse overnight events reported to me; no fevers,no further episodes of bleeding today. On supplemental oxygen at 2L via [place] . No nausea or vomiting Objective Vital Signs - 12hr 10/26/18 10/26/18 10/27/18 21:00 22:30 04:46 Temperature 98.3 F 99.3 F Pulse Rate 91 H 86 90 Respiratory 18 20 20 Rate Blood Pressure 147/85 143/84 135/82 O2 Sat by Pulse 100 98 100 Oximetry Constitutional: no acute distress, alert Eyes: non-icteric ENT: oropharynx moist Neck: supple, no lymphadenopathy, no JVD Effort: mildly labored Ascultation: Bilateral: diminished breath sounds (bases), rales Percussion: Right: dull (base), Bilateral: not dull Cardiovascular: regular rate and rhythm, other (+ metalic valve click) Gastrointestinal: normoactive bowel sounds, soft, non-tender, non-distended, other (No HSM) Integumentary: normal Extremities: no cyanosis, no edema, pulses normal, no ischemia or petechiae Neurologic: non-focal exam (grossly), pupils equal and round, CN II-XII normal, motor strength normal and, other (somnolent) Psychiatric: other (flat affect) CBC and BMP: 10/28/18 03:57 10/26/18 15:54 ABG, PT/INR, D-dimer: ABG POC ABG pH 7.458 (7.35-7.45) H 10/19/18 19:56 POC ABG pCO2 37.9 (35-45) 10/19/18 19:56 POC ABG pO2 63 (80-105) L 10/19/18 19:56 POC ABG HCO3 26.8 (22-26 mml/L) 10/19/18 19:56 POC ABG Total CO2 28 (23-27mmol/L) 10/19/18 19:56 POC ABG O2 Sat 93 10/19/18 19:56 PT/INR, D-dimer PT 14.5 Sec. (12.2-14.9) 10/27/18 06:53 INR 1.06 (0.87-1.13) 10/27/18 06:53 Abnormal lab findings: Abnormal Labs 10/07/18 10/07/18 10/07/18 02:20 02:43 02:43 WBC RBC Hgb Hct MCH 25 L RDW 21.5 H Plt Count Lymph % (Auto) [place] % (Auto) Lymph # 0.9 L [place] # Eos # Baso # Seg Neutrophils % 78.4 H Seg Neuts % (Manual) Lymphocytes % (Manual) Seg Neutrophils # Seg Neutrophils # Man Lymphocytes # (Manual) PT INR APTT Heparin Anti-Xa Level POC ABG pH POC ABG pCO2 POC ABG pO2 Sodium Potassium Chloride 108.0 H Carbon Dioxide 21 L BUN Creatinine 1.5 H Glucose 115 H POC Glucose 136 H Hemoglobin A1c Lactic Acid Calcium Phosphorus AST 51 H Alkaline Phosphatase 257 H NT-Pro-B Natriuret Pep Total Protein Albumin Urine WBC (Auto) Crossmatch 10/07/18 10/07/18 10/07/18 02:43 04:32 05:12 WBC RBC Hgb Hct MCH RDW Plt Count Lymph % (Auto) [place] % (Auto) Lymph # [place] # Eos # Baso # Seg Neutrophils % Seg Neuts % (Manual) Lymphocytes % (Manual) Seg Neutrophils # Seg Neutrophils # Man Lymphocytes # (Manual) PT 25.4 H INR 2.14 H APTT Heparin Anti-Xa Level POC ABG pH POC ABG pCO2 33.6 L POC ABG pO2 69 L Sodium Potassium Chloride Carbon Dioxide BUN Creatinine Glucose POC Glucose Hemoglobin A1c Lactic Acid 2.40 H* Calcium Phosphorus AST Alkaline Phosphatase NT-Pro-B Natriuret Pep Total Protein Albumin Urine WBC (Auto) Crossmatch 10/07/18 10/07/18 10/07/18 06:28 18:39 20:26 WBC RBC Hgb Hct MCH RDW Plt Count Lymph % (Auto) [place] % (Auto) Lymph # [place] # Eos # Baso # Seg Neutrophils % Seg Neuts % (Manual) Lymphocytes % (Manual) Seg Neutrophils # Seg Neutrophils # Man Lymphocytes # (Manual) PT INR APTT Heparin Anti-Xa Level POC ABG pH POC ABG pCO2 POC ABG pO2 Sodium Potassium Chloride Carbon Dioxide BUN Creatinine Glucose POC Glucose 164 H 440 H > 500 H Hemoglobin A1c Lactic Acid Calcium Phosphorus AST Alkaline Phosphatase NT-Pro-B Natriuret Pep Total Protein Albumin Urine WBC (Auto) Crossmatch 10/07/18 10/07/18 10/07/18 20:28 21:53 22:08 WBC RBC Hgb Hct MCH RDW Plt Count Lymph % (Auto) [place] % (Auto) Lymph # [place] # Eos # Baso # Seg Neutrophils % Seg Neuts % (Manual) Lymphocytes % (Manual) Seg Neutrophils # Seg Neutrophils # Man Lymphocytes # (Manual) PT INR APTT Heparin Anti-Xa Level POC ABG pH POC ABG pCO2 POC ABG pO2 Sodium 136 L D Potassium 6.4 H* D Chloride Carbon Dioxide 10 L D BUN 30 H Creatinine 2.0 H Glucose 544 H* POC Glucose 483 H > 500 H Hemoglobin A1c Lactic Acid Calcium 7.0 L D Phosphorus AST Alkaline Phosphatase NT-Pro-B Natriuret Pep Total Protein Albumin Urine WBC (Auto) Crossmatch 10/07/18 10/07/18 10/07/18 22:08 22:08 22:56 WBC RBC Hgb Hct MCH RDW Plt Count Lymph % (Auto) [place] % (Auto) Lymph # [place] # Eos # Baso # Seg Neutrophils % Seg Neuts % (Manual) Lymphocytes % (Manual) Seg Neutrophils # Seg Neutrophils # Man Lymphocytes # (Manual) PT INR APTT Heparin Anti-Xa Level POC ABG pH POC ABG pCO2 POC ABG pO2 Sodium Potassium Chloride Carbon Dioxide BUN Creatinine Glucose POC Glucose 462 H Hemoglobin A1c 10.2 H Lactic Acid Calcium Phosphorus 7.40 H AST Alkaline Phosphatase NT-Pro-B Natriuret Pep Total Protein Albumin Urine WBC (Auto) Crossmatch 10/07/18 10/08/18 10/08/18 23:39 00:58 02:09 WBC RBC Hgb Hct MCH RDW Plt Count Lymph % (Auto) [place] % (Auto) Lymph # [place] # Eos # Baso # Seg Neutrophils % Seg Neuts % (Manual) Lymphocytes % (Manual) Seg Neutrophils # Seg Neutrophils # Man Lymphocytes # (Manual) PT INR APTT Heparin Anti-Xa Level POC ABG pH POC ABG pCO2 POC ABG pO2 Sodium Potassium Chloride Carbon Dioxide BUN Creatinine Glucose POC Glucose 396 H 375 H 285 H Hemoglobin A1c Lactic Acid Calcium Phosphorus AST Alkaline Phosphatase NT-Pro-B Natriuret Pep Total Protein Albumin Urine WBC (Auto) Crossmatch 10/08/18 10/08/18 10/08/18 03:10 03:33 04:05 WBC RBC Hgb Hct MCH RDW Plt Count Lymph % (Auto) [place] % (Auto) Lymph # [place] # Eos # Baso # Seg Neutrophils % Seg Neuts % (Manual) Lymphocytes % (Manual) Seg Neutrophils # Seg Neutrophils # Man Lymphocytes # (Manual) PT INR APTT Heparin Anti-Xa Level POC ABG pH 7.243 L POC ABG pCO2 33.8 L POC ABG pO2 126 H Sodium Potassium 5.3 H Chloride 110.7 H Carbon Dioxide 14 L BUN 33 H Creatinine 2.2 H Glucose 193 H POC Glucose 251 H Hemoglobin A1c Lactic Acid Calcium 7.0 L Phosphorus AST Alkaline Phosphatase 155 H NT-Pro-B Natriuret Pep Total Protein 5.2 L D Albumin 2.6 L Urine WBC (Auto) Crossmatch 10/08/18 10/08/18 10/08/18 04:05 04:05 04:09 WBC 11.8 H RBC 3.32 L Hgb 8.3 L Hct 27.5 L D MCH 25 L RDW 22.0 H Plt Count Lymph % (Auto) 6.8 L [place] % (Auto) 12.0 H Lymph # 0.8 L [place] # 1.4 H Eos # Baso # Seg Neutrophils % 80.6 H Seg Neuts % (Manual) Lymphocytes % (Manual) Seg Neutrophils # 9.5 H Seg Neutrophils # Man Lymphocytes # (Manual) PT INR APTT Heparin Anti-Xa Level POC ABG pH POC ABG pCO2 POC ABG pO2 Sodium Potassium Chloride Carbon Dioxide BUN Creatinine Glucose POC Glucose 175 H Hemoglobin A1c Lactic Acid 3.70 H* Calcium Phosphorus AST Alkaline Phosphatase NT-Pro-B Natriuret Pep Total Protein Albumin Urine WBC (Auto) Crossmatch 10/08/18 10/08/18 10/08/18 05:07 06:05 07:14 WBC RBC Hgb Hct MCH RDW Plt Count Lymph % (Auto) [place] % (Auto) Lymph # [place] # Eos # Baso # Seg Neutrophils % Seg Neuts % (Manual) Lymphocytes % (Manual) Seg Neutrophils # Seg Neutrophils # Man Lymphocytes # (Manual) PT INR APTT Heparin Anti-Xa Level POC ABG pH POC ABG pCO2 POC ABG pO2 Sodium Potassium Chloride Carbon Dioxide BUN Creatinine Glucose POC Glucose 125 H 122 H 147 H Hemoglobin A1c Lactic Acid Calcium Phosphorus AST Alkaline Phosphatase NT-Pro-B Natriuret Pep Total Protein Albumin Urine WBC (Auto) Crossmatch 10/08/18 10/08/18 10/08/18 07:22 08:09 08:47 WBC RBC Hgb Hct MCH RDW Plt Count Lymph % (Auto) [place] % (Auto) Lymph # [place] # Eos # Baso # Seg Neutrophils % Seg Neuts % (Manual) Lymphocytes % (Manual) Seg Neutrophils # Seg Neutrophils # Man Lymphocytes # (Manual) PT INR APTT Heparin Anti-Xa Level POC ABG pH POC ABG pCO2 POC ABG pO2 Sodium Potassium 5.2 H Chloride 112.4 H Carbon Dioxide 17 L BUN 32 H Creatinine 2.1 H Glucose 148 H POC Glucose 134 H 148 H Hemoglobin A1c Lactic Acid Calcium 6.6 L Phosphorus AST Alkaline Phosphatase NT-Pro-B Natriuret Pep Total Protein Albumin Urine WBC (Auto) Crossmatch 10/08/18 10/08/18 10/08/18 10:21 13:29 14:21 WBC RBC Hgb Hct MCH RDW Plt Count Lymph % (Auto) [place] % (Auto) Lymph # [place] # Eos # Baso # Seg Neutrophils % Seg Neuts % (Manual) Lymphocytes % (Manual) Seg Neutrophils # Seg Neutrophils # Man Lymphocytes # (Manual) PT INR APTT Heparin Anti-Xa Level POC ABG pH POC ABG pCO2 POC ABG pO2 Sodium Potassium Chloride Carbon Dioxide BUN Creatinine Glucose POC Glucose 115 H 109 H 118 H Hemoglobin A1c Lactic Acid Calcium Phosphorus AST Alkaline Phosphatase NT-Pro-B Natriuret Pep Total Protein Albumin Urine WBC (Auto) Crossmatch 10/08/18 10/08/18 10/08/18 15:27 17:00 17:00 WBC 11.3 H RBC 3.21 L Hgb 7.9 L Hct 25.7 L MCH 25 L RDW 21.8 H Plt Count Lymph % (Auto) 8.5 L [place] % (Auto) 7.7 H Lymph # 1.0 L [place] # 0.9 H Eos # Baso # Seg Neutrophils % 82.8 H Seg Neuts % (Manual) Lymphocytes % (Manual) Seg Neutrophils # 9.3 H Seg Neutrophils # Man Lymphocytes # (Manual) PT INR APTT Heparin Anti-Xa Level POC ABG pH POC ABG pCO2 POC ABG pO2 Sodium Potassium Chloride Carbon Dioxide BUN Creatinine Glucose POC Glucose 129 H Hemoglobin A1c Lactic Acid Calcium Phosphorus AST Alkaline Phosphatase NT-Pro-B Natriuret Pep 3097 H Total Protein Albumin Urine WBC (Auto) Crossmatch 10/08/18 10/08/18 10/08/18 17:07 17:12 18:22 WBC RBC Hgb Hct MCH RDW Plt Count Lymph % (Auto) [place] % (Auto) Lymph # [place] # Eos # Baso # Seg Neutrophils % Seg Neuts % (Manual) Lymphocytes % (Manual) Seg Neutrophils # Seg Neutrophils # Man Lymphocytes # (Manual) PT INR APTT Heparin Anti-Xa Level POC ABG pH 7.337 L POC ABG pCO2 32.0 L POC ABG pO2 130 H Sodium Potassium Chloride 115.5 H Carbon Dioxide 17 L BUN 30 H Creatinine 1.9 H Glucose 103 H POC Glucose 119 H Hemoglobin A1c Lactic Acid Calcium 6.9 L Phosphorus AST Alkaline Phosphatase NT-Pro-B Natriuret Pep Total Protein Albumin Urine WBC (Auto) Crossmatch 10/08/18 10/08/18 10/09/18 20:09 20:57 01:10 WBC RBC Hgb Hct MCH RDW Plt Count Lymph % (Auto) [place] % (Auto) Lymph # [place] # Eos # Baso # Seg Neutrophils % Seg Neuts % (Manual) Lymphocytes % (Manual) Seg Neutrophils # Seg Neutrophils # Man Lymphocytes # (Manual) PT INR APTT Heparin Anti-Xa Level POC ABG pH POC ABG pCO2 POC ABG pO2 Sodium Potassium Chloride 114.3 H 113.7 H Carbon Dioxide 15 L 14 L BUN 29 H 29 H Creatinine 2.1 H 2.0 H Glucose 132 H 39 L* POC Glucose 150 H Hemoglobin A1c Lactic Acid Calcium 6.7 L 6.9 L Phosphorus AST Alkaline Phosphatase NT-Pro-B Natriuret Pep Total Protein Albumin Urine WBC (Auto) Crossmatch 10/09/18 10/09/18 10/09/18 01:10 01:43 03:20 WBC RBC Hgb Hct MCH RDW Plt Count Lymph % (Auto) [place] % (Auto) Lymph # [place] # Eos # Baso # Seg Neutrophils % Seg Neuts % (Manual) Lymphocytes % (Manual) Seg Neutrophils # Seg Neutrophils # Man Lymphocytes # (Manual) PT INR APTT Heparin Anti-Xa Level POC ABG pH POC ABG pCO2 POC ABG pO2 Sodium Potassium Chloride Carbon Dioxide BUN Creatinine Glucose POC Glucose < 40 L < 40 L Hemoglobin A1c Lactic Acid Calcium Phosphorus AST Alkaline Phosphatase NT-Pro-B Natriuret Pep 2865 H Total Protein Albumin Urine WBC (Auto) Crossmatch 10/09/18 10/09/18 10/09/18 04:23 05:03 05:25 WBC RBC Hgb Hct MCH RDW Plt Count Lymph % (Auto) [place] % (Auto) Lymph # [place] # Eos # Baso # Seg Neutrophils % Seg Neuts % (Manual) Lymphocytes % (Manual) Seg Neutrophils # Seg Neutrophils # Man Lymphocytes # (Manual) PT INR APTT Heparin Anti-Xa Level POC ABG pH POC ABG pCO2 30.6 L 32.3 L POC ABG pO2 118 H Sodium Potassium Chloride Carbon Dioxide BUN Creatinine Glucose POC Glucose 148 H Hemoglobin A1c Lactic Acid Calcium Phosphorus AST Alkaline Phosphatase NT-Pro-B Natriuret Pep Total Protein Albumin Urine WBC (Auto) Crossmatch 10/09/18 10/09/18 10/09/18 06:00 08:34 09:58 WBC RBC Hgb Hct MCH RDW Plt Count Lymph % (Auto) [place] % (Auto) Lymph # [place] # Eos # Baso # Seg Neutrophils % Seg Neuts % (Manual) Lymphocytes % (Manual) Seg Neutrophils # Seg Neutrophils # Man Lymphocytes # (Manual) PT INR APTT Heparin Anti-Xa Level POC ABG pH POC ABG pCO2 POC ABG pO2 Sodium Potassium Chloride Carbon Dioxide BUN Creatinine Glucose POC Glucose 173 H 196 H 183 H Hemoglobin A1c Lactic Acid Calcium Phosphorus AST Alkaline Phosphatase NT-Pro-B Natriuret Pep Total Protein Albumin Urine WBC (Auto) Crossmatch 10/09/18 10/09/18 10/09/18 12:25 12:46 18:16 WBC RBC Hgb Hct MCH RDW Plt Count Lymph % (Auto) [place] % (Auto) Lymph # [place] # Eos # Baso # Seg Neutrophils % Seg Neuts % (Manual) Lymphocytes % (Manual) Seg Neutrophils # Seg Neutrophils # Man Lymphocytes # (Manual) PT INR APTT Heparin Anti-Xa Level POC ABG pH POC ABG pCO2 POC ABG pO2 Sodium Potassium Chloride 110.3 H Carbon Dioxide 16 L BUN 24 H Creatinine 1.8 H Glucose 207 H POC Glucose 208 H 177 H Hemoglobin A1c Lactic Acid Calcium 6.9 L Phosphorus AST Alkaline Phosphatase NT-Pro-B Natriuret Pep Total Protein Albumin Urine WBC (Auto) Crossmatch 10/09/18 10/10/18 10/10/18 21:11 00:11 05:41 WBC RBC Hgb Hct MCH RDW Plt Count Lymph % (Auto) [place] % (Auto) Lymph # [place] # Eos # Baso # Seg Neutrophils % Seg Neuts % (Manual) Lymphocytes % (Manual) Seg Neutrophils # Seg Neutrophils # Man Lymphocytes # (Manual) PT INR APTT Heparin Anti-Xa Level POC ABG pH POC ABG pCO2 POC ABG pO2 Sodium Potassium Chloride Carbon Dioxide BUN Creatinine Glucose POC Glucose 124 H 156 H 42 L Hemoglobin A1c Lactic Acid Calcium Phosphorus AST Alkaline Phosphatase NT-Pro-B Natriuret Pep Total Protein Albumin Urine WBC (Auto) Crossmatch 10/10/18 10/10/18 10/10/18 05:45 07:28 12:07 WBC RBC Hgb Hct MCH RDW Plt Count Lymph % (Auto) [place] % (Auto) Lymph # [place] # Eos # Baso # Seg Neutrophils % Seg Neuts % (Manual) Lymphocytes % (Manual) Seg Neutrophils # Seg Neutrophils # Man Lymphocytes # (Manual) PT INR APTT Heparin Anti-Xa Level POC ABG pH POC ABG pCO2 POC ABG pO2 Sodium 146 H D Potassium Chloride 111.2 H Carbon Dioxide BUN 21 H Creatinine 1.8 H Glucose 44 L POC Glucose 114 H 49 L Hemoglobin A1c Lactic Acid Calcium 7.4 L Phosphorus AST Alkaline Phosphatase NT-Pro-B Natriuret Pep Total Protein Albumin Urine WBC (Auto) Crossmatch 10/10/18 10/10/18 10/10/18 12:37 18:02 20:47 WBC RBC Hgb Hct MCH RDW Plt Count Lymph % (Auto) [place] % (Auto) Lymph # [place] # Eos # Baso # Seg Neutrophils % Seg Neuts % (Manual) Lymphocytes % (Manual) Seg Neutrophils # Seg Neutrophils # Man Lymphocytes # (Manual) PT INR APTT Heparin Anti-Xa Level POC ABG pH POC ABG pCO2 POC ABG pO2 Sodium Potassium Chloride Carbon Dioxide BUN Creatinine Glucose POC Glucose 142 H 49 L 162 H Hemoglobin A1c Lactic Acid Calcium Phosphorus AST Alkaline Phosphatase NT-Pro-B Natriuret Pep Total Protein Albumin Urine WBC (Auto) Crossmatch 10/10/18 10/10/18 10/10/18 21:45 22:19 23:50 WBC RBC Hgb Hct MCH RDW Plt Count Lymph % (Auto) [place] % (Auto) Lymph # [place] # Eos # Baso # Seg Neutrophils % Seg Neuts % (Manual) Lymphocytes % (Manual) Seg Neutrophils # Seg Neutrophils # Man Lymphocytes # (Manual) PT INR APTT Heparin Anti-Xa Level POC ABG pH 7.334 L POC ABG pCO2 47.0 H POC ABG pO2 53 L 79 L Sodium Potassium Chloride Carbon Dioxide BUN Creatinine Glucose POC Glucose 185 H Hemoglobin A1c Lactic Acid Calcium Phosphorus AST Alkaline Phosphatase NT-Pro-B Natriuret Pep Total Protein Albumin Urine WBC (Auto) Crossmatch 10/11/18 10/11/18 10/11/18 05:00 06:41 07:17 WBC RBC Hgb Hct MCH RDW Plt Count Lymph % (Auto) [place] % (Auto) Lymph # [place] # Eos # Baso # Seg Neutrophils % Seg Neuts % (Manual) Lymphocytes % (Manual) Seg Neutrophils # Seg Neutrophils # Man Lymphocytes # (Manual) PT INR APTT Heparin Anti-Xa Level POC ABG pH POC ABG pCO2 POC ABG pO2 Sodium Potassium Chloride Carbon Dioxide BUN Creatinine 1.7 H Glucose 43 L POC Glucose 48 L 129 H Hemoglobin A1c Lactic Acid Calcium 7.7 L Phosphorus AST Alkaline Phosphatase NT-Pro-B Natriuret Pep Total Protein Albumin Urine WBC (Auto) Crossmatch 10/11/18 10/11/18 10/11/18 11:14 13:32 14:25 WBC RBC 3.32 L Hgb 8.2 L Hct 26.4 L MCH 25 L RDW 21.6 H Plt Count Lymph % (Auto) [place] % (Auto) Lymph # [place] # Eos # Baso # Seg Neutrophils % Seg Neuts % (Manual) Lymphocytes % (Manual) Seg Neutrophils # Seg Neutrophils # Man Lymphocytes # (Manual) PT 21.7 H INR 1.76 H APTT 50.5 H Heparin Anti-Xa Level POC ABG pH POC ABG pCO2 POC ABG pO2 Sodium Potassium Chloride Carbon Dioxide BUN Creatinine Glucose POC Glucose 138 H Hemoglobin A1c Lactic Acid Calcium Phosphorus AST Alkaline Phosphatase NT-Pro-B Natriuret Pep Total Protein Albumin Urine WBC (Auto) Crossmatch 10/11/18 10/11/18 10/11/18 14:25 15:41 17:31 WBC RBC Hgb Hct MCH RDW Plt Count Lymph % (Auto) [place] % (Auto) Lymph # [place] # Eos # Baso # Seg Neutrophils % Seg Neuts % (Manual) Lymphocytes % (Manual) Seg Neutrophils # Seg Neutrophils # Man Lymphocytes # (Manual) PT 20.6 H INR 1.65 H APTT 54.9 H Heparin Anti-Xa Level POC ABG pH POC ABG pCO2 POC ABG pO2 53 L Sodium Potassium Chloride Carbon Dioxide BUN Creatinine Glucose POC Glucose 133 H Hemoglobin A1c Lactic Acid Calcium Phosphorus AST Alkaline Phosphatase NT-Pro-B Natriuret Pep Total Protein Albumin Urine WBC (Auto) Crossmatch 10/12/18 10/12/18 10/12/18 00:30 03:56 04:25 WBC RBC Hgb Hct MCH RDW Plt Count Lymph % (Auto) [place] % (Auto) Lymph # [place] # Eos # Baso # Seg Neutrophils % Seg Neuts % (Manual) Lymphocytes % (Manual) Seg Neutrophils # Seg Neutrophils # Man Lymphocytes # (Manual) PT INR APTT Heparin Anti-Xa Level POC ABG pH 7.514 H POC ABG pCO2 31.2 L POC ABG pO2 Sodium Potassium Chloride Carbon Dioxide BUN Creatinine 1.6 H Glucose 287 H POC Glucose 353 H Hemoglobin A1c Lactic Acid Calcium 8.0 L Phosphorus AST Alkaline Phosphatase NT-Pro-B Natriuret Pep Total Protein Albumin Urine WBC (Auto) Crossmatch 10/12/18 10/12/18 10/12/18 04:49 12:13 17:53 WBC RBC Hgb Hct MCH RDW Plt Count Lymph % (Auto) [place] % (Auto) Lymph # [place] # Eos # Baso # Seg Neutrophils % Seg Neuts % (Manual) Lymphocytes % (Manual) Seg Neutrophils # Seg Neutrophils # Man Lymphocytes # (Manual) PT INR APTT Heparin Anti-Xa Level POC ABG pH POC ABG pCO2 POC ABG pO2 Sodium Potassium Chloride Carbon Dioxide BUN Creatinine Glucose POC Glucose 297 H 290 H 211 H Hemoglobin A1c Lactic Acid Calcium Phosphorus AST Alkaline Phosphatase NT-Pro-B Natriuret Pep Total Protein Albumin Urine WBC (Auto) Crossmatch 10/12/18 10/12/18 10/13/18 18:57 21:35 04:50 WBC 11.8 H RBC 3.08 L Hgb 7.4 L Hct 24.2 L MCH 24 L RDW 21.5 H Plt Count Lymph % (Auto) [place] % (Auto) Lymph # [place] # Eos # Baso # Seg Neutrophils % Seg Neuts % (Manual) Lymphocytes % (Manual) Seg Neutrophils # Seg Neutrophils # Man Lymphocytes # (Manual) PT INR APTT Heparin Anti-Xa Level 1.74 H POC ABG pH 7.497 H POC ABG pCO2 33.2 L POC ABG pO2 71 L Sodium Potassium Chloride Carbon Dioxide BUN Creatinine Glucose POC Glucose Hemoglobin A1c Lactic Acid Calcium Phosphorus AST Alkaline Phosphatase NT-Pro-B Natriuret Pep Total Protein Albumin Urine WBC (Auto) Crossmatch 10/13/18 10/13/18 10/13/18 05:25 05:25 05:37 WBC 12.1 H RBC 3.02 L Hgb 7.4 L Hct 23.7 L MCH 25 L RDW 21.0 H Plt Count Lymph % (Auto) 9.6 L [place] % (Auto) 10.0 H Lymph # [place] # 1.2 H Eos # Baso # Seg Neutrophils % 76.2 H Seg Neuts % (Manual) Lymphocytes % (Manual) Seg Neutrophils # 9.2 H Seg Neutrophils # Man Lymphocytes # (Manual) PT INR APTT Heparin Anti-Xa Level POC ABG pH POC ABG pCO2 POC ABG pO2 Sodium Potassium Chloride Carbon Dioxide BUN Creatinine 1.6 H Glucose 175 H POC Glucose 165 H Hemoglobin A1c Lactic Acid Calcium 8.3 L Phosphorus AST Alkaline Phosphatase NT-Pro-B Natriuret Pep Total Protein Albumin Urine WBC (Auto) Crossmatch 10/13/18 10/13/18 10/13/18 06:45 11:12 17:19 WBC RBC Hgb Hct MCH RDW Plt Count Lymph % (Auto) [place] % (Auto) Lymph # [place] # Eos # Baso # Seg Neutrophils % Seg Neuts % (Manual) Lymphocytes % (Manual) Seg Neutrophils # Seg Neutrophils # Man Lymphocytes # (Manual) PT 17.4 H INR 1.34 H APTT Heparin Anti-Xa Level POC ABG pH POC ABG pCO2 POC ABG pO2 Sodium Potassium Chloride Carbon Dioxide BUN Creatinine Glucose POC Glucose 223 H 129 H Hemoglobin A1c Lactic Acid Calcium Phosphorus AST Alkaline Phosphatase NT-Pro-B Natriuret Pep Total Protein Albumin Urine WBC (Auto) Crossmatch 10/13/18 10/14/18 10/14/18 23:39 05:01 06:14 WBC RBC Hgb Hct MCH RDW Plt Count Lymph % (Auto) [place] % (Auto) Lymph # [place] # Eos # Baso # Seg Neutrophils % Seg Neuts % (Manual) Lymphocytes % (Manual) Seg Neutrophils # Seg Neutrophils # Man Lymphocytes # (Manual) PT INR APTT Heparin Anti-Xa Level POC ABG pH POC ABG pCO2 POC ABG pO2 Sodium Potassium Chloride Carbon Dioxide BUN Creatinine 1.5 H Glucose 264 H POC Glucose 171 H 226 H Hemoglobin A1c Lactic Acid Calcium 8.0 L Phosphorus AST Alkaline Phosphatase NT-Pro-B Natriuret Pep Total Protein Albumin Urine WBC (Auto) Crossmatch 10/14/18 10/14/18 10/14/18 06:14 12:24 19:33 WBC RBC Hgb Hct MCH RDW Plt Count Lymph % (Auto) [place] % (Auto) Lymph # [place] # Eos # Baso # Seg Neutrophils % Seg Neuts % (Manual) Lymphocytes % (Manual) Seg Neutrophils # Seg Neutrophils # Man Lymphocytes # (Manual) PT 22.1 H INR 1.80 H APTT Heparin Anti-Xa Level POC ABG pH POC ABG pCO2 POC ABG pO2 Sodium Potassium Chloride Carbon Dioxide BUN Creatinine Glucose POC Glucose 403 H 164 H Hemoglobin A1c Lactic Acid Calcium Phosphorus AST Alkaline Phosphatase NT-Pro-B Natriuret Pep Total Protein Albumin Urine WBC (Auto) Crossmatch 10/15/18 10/15/18 10/15/18 00:29 06:03 07:00 WBC RBC Hgb Hct MCH RDW Plt Count Lymph % (Auto) [place] % (Auto) Lymph # [place] # Eos # Baso # Seg Neutrophils % Seg Neuts % (Manual) Lymphocytes % (Manual) Seg Neutrophils # Seg Neutrophils # Man Lymphocytes # (Manual) PT INR APTT Heparin Anti-Xa Level POC ABG pH POC ABG pCO2 POC ABG pO2 Sodium Potassium Chloride Carbon Dioxide BUN 20 H Creatinine 1.7 H Glucose 308 H POC Glucose 237 H 282 H Hemoglobin A1c Lactic Acid Calcium 7.6 L Phosphorus AST Alkaline Phosphatase NT-Pro-B Natriuret Pep Total Protein Albumin Urine WBC (Auto) Crossmatch 10/15/18 10/15/18 10/15/18 07:00 08:03 10:27 WBC RBC Hgb 5.8 L* Hct 18.5 L* MCH RDW Plt Count Lymph % (Auto) [place] % (Auto) Lymph # [place] # Eos # Baso # Seg Neutrophils % Seg Neuts % (Manual) Lymphocytes % (Manual) Seg Neutrophils # Seg Neutrophils # Man Lymphocytes # (Manual) PT 46.1 H INR 4.52 H APTT Heparin Anti-Xa Level 0.25 L POC ABG pH POC ABG pCO2 POC ABG pO2 Sodium Potassium Chloride Carbon Dioxide BUN Creatinine Glucose POC Glucose Hemoglobin A1c Lactic Acid Calcium Phosphorus AST Alkaline Phosphatase NT-Pro-B Natriuret Pep Total Protein Albumin Urine WBC (Auto) Crossmatch See Detail 10/15/18 10/15/18 10/16/18 14:03 15:30 10:18 WBC RBC Hgb Hct MCH RDW Plt Count Lymph % (Auto) [place] % (Auto) Lymph # [place] # Eos # Baso # Seg Neutrophils % Seg Neuts % (Manual) Lymphocytes % (Manual) Seg Neutrophils # Seg Neutrophils # Man Lymphocytes # (Manual) PT 53.8 H INR 5.48 H* APTT Heparin Anti-Xa Level POC ABG pH POC ABG pCO2 POC ABG pO2 Sodium Potassium Chloride Carbon Dioxide BUN Creatinine Glucose POC Glucose 336 H 259 H Hemoglobin A1c Lactic Acid Calcium Phosphorus AST Alkaline Phosphatase NT-Pro-B Natriuret Pep Total Protein Albumin Urine WBC (Auto) Crossmatch 10/16/18 10/16/18 10/16/18 10:18 10:18 13:03 WBC 14.8 H RBC 3.03 L Hgb 8.2 L Hct 24.9 L D MCH 27 L RDW 19.2 H Plt Count Lymph % (Auto) 5.7 L [place] % (Auto) Lymph # 0.8 L [place] # 1.1 H Eos # Baso # 0.2 H Seg Neutrophils % 84.3 H Seg Neuts % (Manual) Lymphocytes % (Manual) Seg Neutrophils # 12.5 H Seg Neutrophils # Man Lymphocytes # (Manual) PT INR APTT Heparin Anti-Xa Level POC ABG pH POC ABG pCO2 POC ABG pO2 Sodium Potassium Chloride Carbon Dioxide 20 L BUN 21 H Creatinine 1.5 H Glucose 326 H POC Glucose 329 H Hemoglobin A1c Lactic Acid Calcium 7.8 L Phosphorus AST Alkaline Phosphatase NT-Pro-B Natriuret Pep Total Protein Albumin Urine WBC (Auto) Crossmatch 10/16/18 10/17/18 10/17/18 13:27 00:35 05:00 WBC RBC Hgb Hct MCH RDW Plt Count Lymph % (Auto) [place] % (Auto) Lymph # [place] # Eos # Baso # Seg Neutrophils % Seg Neuts % (Manual) Lymphocytes % (Manual) Seg Neutrophils # Seg Neutrophils # Man Lymphocytes # (Manual) PT 55.4 H 60.2 H INR 5.68 H* 6.30 H* APTT Heparin Anti-Xa Level POC ABG pH POC ABG pCO2 POC ABG pO2 Sodium Potassium Chloride Carbon Dioxide BUN Creatinine Glucose POC Glucose 407 H Hemoglobin A1c Lactic Acid Calcium Phosphorus AST Alkaline Phosphatase NT-Pro-B Natriuret Pep Total Protein Albumin Urine WBC (Auto) Crossmatch 10/17/18 10/17/18 10/17/18 05:00 05:00 05:29 WBC 11.6 H RBC 2.99 L Hgb 8.0 L Hct 24.2 L MCH 27 L RDW 19.2 H Plt Count Lymph % (Auto) [place] % (Auto) Lymph # [place] # Eos # Baso # Seg Neutrophils % Seg Neuts % (Manual) 87.0 H Lymphocytes % (Manual) 9.0 L Seg Neutrophils # Seg Neutrophils # Man 10.1 H Lymphocytes # (Manual) 1.0 L PT INR APTT Heparin Anti-Xa Level POC ABG pH POC ABG pCO2 POC ABG pO2 Sodium Potassium 3.4 L D Chloride Carbon Dioxide BUN Creatinine 1.4 H Glucose 170 H POC Glucose 156 H Hemoglobin A1c Lactic Acid Calcium 7.6 L Phosphorus AST Alkaline Phosphatase NT-Pro-B Natriuret Pep Total Protein 5.4 L Albumin 2.2 L Urine WBC (Auto) Crossmatch 10/17/18 10/17/18 10/18/18 11:59 17:06 00:21 WBC RBC Hgb Hct MCH RDW Plt Count Lymph % (Auto) [place] % (Auto) Lymph # [place] # Eos # Baso # Seg Neutrophils % Seg Neuts % (Manual) Lymphocytes % (Manual) Seg Neutrophils # Seg Neutrophils # Man Lymphocytes # (Manual) PT INR APTT Heparin Anti-Xa Level POC ABG pH POC ABG pCO2 POC ABG pO2 Sodium Potassium Chloride Carbon Dioxide BUN Creatinine Glucose POC Glucose 389 H 151 H 355 H Hemoglobin A1c Lactic Acid Calcium Phosphorus AST Alkaline Phosphatase NT-Pro-B Natriuret Pep Total Protein Albumin Urine WBC (Auto) Crossmatch 10/18/18 10/18/18 10/18/18 04:17 04:17 04:17 WBC RBC 3.01 L Hgb 8.1 L Hct 24.6 L MCH 27 L RDW 19.7 H Plt Count Lymph % (Auto) 12.7 L [place] % (Auto) Lymph # [place] # Eos # Baso # Seg Neutrophils % 76.3 H Seg Neuts % (Manual) Lymphocytes % (Manual) Seg Neutrophils # 8.2 H Seg Neutrophils # Man Lymphocytes # (Manual) PT 39.5 H INR 3.72 H APTT Heparin Anti-Xa Level POC ABG pH POC ABG pCO2 POC ABG pO2 Sodium Potassium 3.5 L Chloride Carbon Dioxide BUN Creatinine 1.5 H Glucose 115 H POC Glucose Hemoglobin A1c Lactic Acid Calcium 7.4 L Phosphorus AST Alkaline Phosphatase NT-Pro-B Natriuret Pep Total Protein Albumin Urine WBC (Auto) Crossmatch 10/18/18 10/18/18 10/18/18 06:45 13:39 17:12 WBC RBC Hgb Hct MCH RDW Plt Count Lymph % (Auto) [place] % (Auto) Lymph # [place] # Eos # Baso # Seg Neutrophils % Seg Neuts % (Manual) Lymphocytes % (Manual) Seg Neutrophils # Seg Neutrophils # Man Lymphocytes # (Manual) PT INR APTT Heparin Anti-Xa Level POC ABG pH POC ABG pCO2 POC ABG pO2 Sodium Potassium Chloride Carbon Dioxide BUN Creatinine Glucose POC Glucose 170 H 415 H 377 H Hemoglobin A1c Lactic Acid Calcium Phosphorus AST Alkaline Phosphatase NT-Pro-B Natriuret Pep Total Protein Albumin Urine WBC (Auto) Crossmatch 10/19/18 10/19/18 10/19/18 00:48 05:35 05:52 WBC RBC 2.84 L Hgb 7.7 L Hct 23.2 L MCH 27 L RDW 19.8 H Plt Count Lymph % (Auto) 11.0 L [place] % (Auto) Lymph # 1.1 L [place] # Eos # Baso # Seg Neutrophils % 78.5 H Seg Neuts % (Manual) Lymphocytes % (Manual) Seg Neutrophils # 8.1 H Seg Neutrophils # Man Lymphocytes # (Manual) PT INR APTT Heparin Anti-Xa Level POC ABG pH POC ABG pCO2 POC ABG pO2 Sodium Potassium Chloride Carbon Dioxide BUN Creatinine Glucose POC Glucose 308 H 116 H Hemoglobin A1c Lactic Acid Calcium Phosphorus AST Alkaline Phosphatase NT-Pro-B Natriuret Pep Total Protein Albumin Urine WBC (Auto) Crossmatch 10/19/18 10/19/18 10/19/18 05:52 07:12 09:41 WBC RBC Hgb 8.1 L Hct 24.6 L MCH RDW Plt Count Lymph % (Auto) [place] % (Auto) Lymph # [place] # Eos # Baso # Seg Neutrophils % Seg Neuts % (Manual) Lymphocytes % (Manual) Seg Neutrophils # Seg Neutrophils # Man Lymphocytes # (Manual) PT 18.1 H INR 1.40 H APTT Heparin Anti-Xa Level POC ABG pH POC ABG pCO2 POC ABG pO2 Sodium Potassium Chloride Carbon Dioxide BUN 21 H Creatinine 1.6 H Glucose 128 H POC Glucose Hemoglobin A1c Lactic Acid Calcium 7.7 L Phosphorus AST Alkaline Phosphatase NT-Pro-B Natriuret Pep Total Protein Albumin Urine WBC (Auto) Crossmatch 10/19/18 10/19/18 10/19/18 09:41 11:46 16:12 WBC RBC Hgb Hct MCH RDW Plt Count Lymph % (Auto) [place] % (Auto) Lymph # [place] # Eos # Baso # Seg Neutrophils % Seg Neuts % (Manual) Lymphocytes % (Manual) Seg Neutrophils # Seg Neutrophils # Man Lymphocytes # (Manual) PT 17.7 H INR 1.36 H APTT Heparin Anti-Xa Level POC ABG pH POC ABG pCO2 POC ABG pO2 Sodium Potassium Chloride Carbon Dioxide BUN Creatinine Glucose POC Glucose 212 H 260 H Hemoglobin A1c Lactic Acid Calcium Phosphorus AST Alkaline Phosphatase NT-Pro-B Natriuret Pep Total Protein Albumin Urine WBC (Auto) Crossmatch 10/19/18 10/19/18 10/19/18 19:56 22:09 Unknown WBC RBC Hgb Hct MCH RDW Plt Count Lymph % (Auto) [place] % (Auto) Lymph # [place] # Eos # Baso # Seg Neutrophils % Seg Neuts % (Manual) Lymphocytes % (Manual) Seg Neutrophils # Seg Neutrophils # Man Lymphocytes # (Manual) PT INR APTT Heparin Anti-Xa Level 0.19 L POC ABG pH 7.458 H POC ABG pCO2 POC ABG pO2 63 L Sodium Potassium Chloride Carbon Dioxide BUN Creatinine Glucose POC Glucose 216 H Hemoglobin A1c Lactic Acid Calcium Phosphorus AST Alkaline Phosphatase NT-Pro-B Natriuret Pep Total Protein Albumin Urine WBC (Auto) Crossmatch 10/20/18 10/20/18 10/20/18 03:00 03:00 03:00 WBC 14.8 H RBC 2.81 L Hgb 7.5 L Hct 23.1 L MCH 27 L RDW 20.0 H Plt Count Lymph % (Auto) 11.5 L [place] % (Auto) Lymph # [place] # 0.9 H Eos # Baso # Seg Neutrophils % 79.7 H Seg Neuts % (Manual) Lymphocytes % (Manual) Seg Neutrophils # 11.8 H Seg Neutrophils # Man Lymphocytes # (Manual) PT 16.9 H INR 1.29 H APTT Heparin Anti-Xa Level 0.24 L POC ABG pH POC ABG pCO2 POC ABG pO2 Sodium Potassium Chloride 97.8 L Carbon Dioxide BUN 20 H Creatinine 1.5 H Glucose 206 H POC Glucose Hemoglobin A1c Lactic Acid Calcium 7.8 L Phosphorus AST Alkaline Phosphatase NT-Pro-B Natriuret Pep Total Protein Albumin Urine WBC (Auto) Crossmatch 10/20/18 10/20/18 10/20/18 06:59 10:20 10:59 WBC RBC Hgb Hct MCH RDW Plt Count Lymph % (Auto) [place] % (Auto) Lymph # [place] # Eos # Baso # Seg Neutrophils % Seg Neuts % (Manual) Lymphocytes % (Manual) Seg Neutrophils # Seg Neutrophils # Man Lymphocytes # (Manual) PT 15.5 H INR 1.16 H APTT Heparin Anti-Xa Level < 0.10 L POC ABG pH POC ABG pCO2 POC ABG pO2 Sodium Potassium Chloride Carbon Dioxide BUN Creatinine Glucose POC Glucose 348 H 227 H Hemoglobin A1c Lactic Acid Calcium Phosphorus AST Alkaline Phosphatase NT-Pro-B Natriuret Pep Total Protein Albumin Urine WBC (Auto) Crossmatch 10/20/18 10/20/18 10/21/18 16:15 17:14 00:53 WBC RBC Hgb Hct MCH RDW Plt Count Lymph % (Auto) [place] % (Auto) Lymph # [place] # Eos # Baso # Seg Neutrophils % Seg Neuts % (Manual) Lymphocytes % (Manual) Seg Neutrophils # Seg Neutrophils # Man Lymphocytes # (Manual) PT INR APTT Heparin Anti-Xa Level 0.24 L POC ABG pH POC ABG pCO2 POC ABG pO2 Sodium Potassium Chloride Carbon Dioxide BUN Creatinine Glucose POC Glucose 279 H 136 H Hemoglobin A1c Lactic Acid Calcium Phosphorus AST Alkaline Phosphatase NT-Pro-B Natriuret Pep Total Protein Albumin Urine WBC (Auto) Crossmatch 10/21/18 10/21/18 10/21/18 05:45 05:45 05:45 WBC 15.8 H RBC 2.79 L Hgb 7.5 L Hct 22.9 L MCH 27 L RDW 19.8 H Plt Count Lymph % (Auto) 7.2 L [place] % (Auto) Lymph # 1.1 L [place] # Eos # Baso # Seg Neutrophils % 85.7 H Seg Neuts % (Manual) Lymphocytes % (Manual) Seg Neutrophils # 13.5 H Seg Neutrophils # Man Lymphocytes # (Manual) PT 16.9 H INR 1.29 H APTT Heparin Anti-Xa Level POC ABG pH POC ABG pCO2 POC ABG pO2 Sodium Potassium Chloride Carbon Dioxide BUN 18 H Creatinine 1.4 H Glucose 339 H POC Glucose Hemoglobin A1c Lactic Acid Calcium 8.3 L Phosphorus AST Alkaline Phosphatase NT-Pro-B Natriuret Pep Total Protein Albumin Urine WBC (Auto) Crossmatch 10/21/18 10/21/18 10/21/18 08:00 10:13 11:00 WBC RBC Hgb Hct MCH RDW Plt Count Lymph % (Auto) [place] % (Auto) Lymph # [place] # Eos # Baso # Seg Neutrophils % Seg Neuts % (Manual) Lymphocytes % (Manual) Seg Neutrophils # Seg Neutrophils # Man Lymphocytes # (Manual) PT INR APTT Heparin Anti-Xa Level POC ABG pH POC ABG pCO2 POC ABG pO2 Sodium Potassium Chloride Carbon Dioxide BUN Creatinine Glucose POC Glucose 398 H 295 H Hemoglobin A1c Lactic Acid Calcium Phosphorus AST Alkaline Phosphatase NT-Pro-B Natriuret Pep Total Protein Albumin Urine WBC (Auto) 125.0 H Crossmatch 10/21/18 10/21/18 10/21/18 11:18 17:20 17:52 WBC RBC Hgb Hct MCH RDW Plt Count Lymph % (Auto) [place] % (Auto) Lymph # [place] # Eos # Baso # Seg Neutrophils % Seg Neuts % (Manual) Lymphocytes % (Manual) Seg Neutrophils # Seg Neutrophils # Man Lymphocytes # (Manual) PT 17.2 H INR 1.32 H APTT 40.0 H Heparin Anti-Xa Level POC ABG pH POC ABG pCO2 POC ABG pO2 Sodium Potassium Chloride Carbon Dioxide BUN Creatinine Glucose POC Glucose 235 H 271 H Hemoglobin A1c Lactic Acid Calcium Phosphorus AST Alkaline Phosphatase NT-Pro-B Natriuret Pep Total Protein Albumin Urine WBC (Auto) Crossmatch 10/21/18 10/22/18 10/22/18 23:41 00:47 04:39 WBC 16.1 H RBC 2.69 L Hgb 6.7 L 7.3 L Hct 19.8 L* 22.3 L MCH 27 L RDW 20.4 H Plt Count Lymph % (Auto) 6.9 L [place] % (Auto) Lymph # 1.1 L [place] # 1.0 H Eos # Baso # Seg Neutrophils % 85.3 H Seg Neuts % (Manual) Lymphocytes % (Manual) Seg Neutrophils # 13.8 H Seg Neutrophils # Man Lymphocytes # (Manual) PT INR APTT Heparin Anti-Xa Level POC ABG pH POC ABG pCO2 POC ABG pO2 Sodium Potassium Chloride Carbon Dioxide BUN Creatinine Glucose POC Glucose 157 H Hemoglobin A1c Lactic Acid Calcium Phosphorus AST Alkaline Phosphatase NT-Pro-B Natriuret Pep Total Protein Albumin Urine WBC (Auto) Crossmatch 10/22/18 10/22/18 10/22/18 04:39 04:39 04:39 WBC RBC Hgb Hct MCH RDW Plt Count Lymph % (Auto) [place] % (Auto) Lymph # [place] # Eos # Baso # Seg Neutrophils % Seg Neuts % (Manual) Lymphocytes % (Manual) Seg Neutrophils # Seg Neutrophils # Man Lymphocytes # (Manual) PT 20.3 H INR 1.62 H APTT Heparin Anti-Xa Level 0.12 L POC ABG pH POC ABG pCO2 POC ABG pO2 Sodium Potassium Chloride Carbon Dioxide BUN 20 H Creatinine 1.7 H Glucose 255 H POC Glucose Hemoglobin A1c Lactic Acid Calcium 8.1 L Phosphorus AST Alkaline Phosphatase NT-Pro-B Natriuret Pep Total Protein Albumin Urine WBC (Auto) Crossmatch See Detail 10/22/18 10/22/18 10/22/18 05:09 11:20 11:20 WBC RBC Hgb 7.4 L Hct 21.9 L MCH RDW Plt Count 457 H Lymph % (Auto) [place] % (Auto) Lymph # [place] # Eos # Baso # Seg Neutrophils % Seg Neuts % (Manual) Lymphocytes % (Manual) Seg Neutrophils # Seg Neutrophils # Man Lymphocytes # (Manual) PT 20.8 H INR 1.67 H APTT 71.0 H* Heparin Anti-Xa Level 0.20 L POC ABG pH POC ABG pCO2 POC ABG pO2 Sodium Potassium Chloride Carbon Dioxide BUN Creatinine Glucose POC Glucose 297 H Hemoglobin A1c Lactic Acid Calcium Phosphorus AST Alkaline Phosphatase NT-Pro-B Natriuret Pep Total Protein Albumin Urine WBC (Auto) Crossmatch 10/22/18 10/22/18 10/22/18 12:09 16:51 17:11 WBC RBC Hgb Hct MCH RDW Plt Count Lymph % (Auto) [place] % (Auto) Lymph # [place] # Eos # Baso # Seg Neutrophils % Seg Neuts % (Manual) Lymphocytes % (Manual) Seg Neutrophils # Seg Neutrophils # Man Lymphocytes # (Manual) PT INR APTT Heparin Anti-Xa Level POC ABG pH POC ABG pCO2 POC ABG pO2 Sodium Potassium Chloride Carbon Dioxide BUN Creatinine Glucose 115 H POC Glucose 125 H < 40 L Hemoglobin A1c Lactic Acid Calcium Phosphorus AST Alkaline Phosphatase NT-Pro-B Natriuret Pep Total Protein Albumin Urine WBC (Auto) Crossmatch 10/22/18 10/23/18 10/23/18 17:13 00:08 06:19 WBC RBC Hgb Hct MCH RDW Plt Count Lymph % (Auto) [place] % (Auto) Lymph # [place] # Eos # Baso # Seg Neutrophils % Seg Neuts % (Manual) Lymphocytes % (Manual) Seg Neutrophils # Seg Neutrophils # Man Lymphocytes # (Manual) PT INR APTT Heparin Anti-Xa Level POC ABG pH POC ABG pCO2 POC ABG pO2 Sodium Potassium Chloride Carbon Dioxide BUN Creatinine Glucose POC Glucose 126 H 192 H 249 H Hemoglobin A1c Lactic Acid Calcium Phosphorus AST Alkaline Phosphatase NT-Pro-B Natriuret Pep Total Protein Albumin Urine WBC (Auto) Crossmatch 10/23/18 10/23/18 10/23/18 07:21 07:21 07:21 WBC 14.4 H RBC 3.29 L Hgb 9.2 L Hct 27.6 L MCH RDW 20.5 H Plt Count 505 H Lymph % (Auto) 8.1 L [place] % (Auto) Lymph # [place] # 1.0 H Eos # 0.6 H Baso # Seg Neutrophils % 80.0 H Seg Neuts % (Manual) Lymphocytes % (Manual) Seg Neutrophils # 11.5 H Seg Neutrophils # Man Lymphocytes # (Manual) PT 21.6 H INR 1.75 H APTT Heparin Anti-Xa Level POC ABG pH POC ABG pCO2 POC ABG pO2 Sodium Potassium Chloride Carbon Dioxide BUN 18 H Creatinine 1.5 H Glucose 308 H POC Glucose Hemoglobin A1c Lactic Acid Calcium Phosphorus AST Alkaline Phosphatase NT-Pro-B Natriuret Pep Total Protein Albumin Urine WBC (Auto) Crossmatch 10/23/18 10/23/18 10/23/18 10:34 11:56 17:07 WBC RBC Hgb Hct MCH RDW Plt Count Lymph % (Auto) [place] % (Auto) Lymph # [place] # Eos # Baso # Seg Neutrophils % Seg Neuts % (Manual) Lymphocytes % (Manual) Seg Neutrophils # Seg Neutrophils # Man Lymphocytes # (Manual) PT INR APTT Heparin Anti-Xa Level POC ABG pH POC ABG pCO2 POC ABG pO2 Sodium Potassium Chloride Carbon Dioxide BUN Creatinine Glucose POC Glucose > 500 H 440 H 387 H Hemoglobin A1c Lactic Acid Calcium Phosphorus AST Alkaline Phosphatase NT-Pro-B Natriuret Pep Total Protein Albumin Urine WBC (Auto) Crossmatch 10/23/18 10/24/18 10/24/18 23:44 06:18 06:39 WBC RBC Hgb 7.9 L Hct 24.3 L MCH RDW Plt Count 522 H Lymph % (Auto) [place] % (Auto) Lymph # [place] # Eos # Baso # Seg Neutrophils % Seg Neuts % (Manual) Lymphocytes % (Manual) Seg Neutrophils # Seg Neutrophils # Man Lymphocytes # (Manual) PT INR APTT Heparin Anti-Xa Level POC ABG pH POC ABG pCO2 POC ABG pO2 Sodium Potassium Chloride Carbon Dioxide BUN Creatinine Glucose POC Glucose 172 H 154 H Hemoglobin A1c Lactic Acid Calcium Phosphorus AST Alkaline Phosphatase NT-Pro-B Natriuret Pep Total Protein Albumin Urine WBC (Auto) Crossmatch 10/24/18 10/24/18 10/24/18 08:05 11:12 18:50 WBC RBC Hgb Hct MCH RDW Plt Count Lymph % (Auto) [place] % (Auto) Lymph # [place] # Eos # Baso # Seg Neutrophils % Seg Neuts % (Manual) Lymphocytes % (Manual) Seg Neutrophils # Seg Neutrophils # Man Lymphocytes # (Manual) PT 20.5 H INR 1.64 H APTT Heparin Anti-Xa Level < 0.10 L POC ABG pH POC ABG pCO2 POC ABG pO2 Sodium Potassium Chloride Carbon Dioxide BUN Creatinine Glucose POC Glucose 203 H Hemoglobin A1c Lactic Acid Calcium Phosphorus AST Alkaline Phosphatase NT-Pro-B Natriuret Pep Total Protein Albumin Urine WBC (Auto) Crossmatch 10/25/18 10/25/18 10/25/18 01:29 06:00 06:00 WBC RBC Hgb 7.8 L Hct 23.9 L MCH RDW Plt Count 569 H Lymph % (Auto) [place] % (Auto) Lymph # [place] # Eos # Baso # Seg Neutrophils % Seg Neuts % (Manual) Lymphocytes % (Manual) Seg Neutrophils # Seg Neutrophils # Man Lymphocytes # (Manual) PT 15.6 H INR 1.17 H APTT Heparin Anti-Xa Level POC ABG pH POC ABG pCO2 POC ABG pO2 Sodium Potassium Chloride Carbon Dioxide BUN Creatinine Glucose POC Glucose 146 H Hemoglobin A1c Lactic Acid Calcium Phosphorus AST Alkaline Phosphatase NT-Pro-B Natriuret Pep Total Protein Albumin Urine WBC (Auto) Crossmatch 10/25/18 10/25/18 10/25/18 06:00 06:11 12:05 WBC RBC Hgb Hct MCH RDW Plt Count Lymph % (Auto) [place] % (Auto) Lymph # [place] # Eos # Baso # Seg Neutrophils % Seg Neuts % (Manual) Lymphocytes % (Manual) Seg Neutrophils # Seg Neutrophils # Man Lymphocytes # (Manual) PT INR APTT Heparin Anti-Xa Level 0.14 L POC ABG pH POC ABG pCO2 POC ABG pO2 Sodium Potassium Chloride Carbon Dioxide BUN Creatinine Glucose POC Glucose 246 H 283 H Hemoglobin A1c Lactic Acid Calcium Phosphorus AST Alkaline Phosphatase NT-Pro-B Natriuret Pep Total Protein Albumin Urine WBC (Auto) Crossmatch 10/25/18 10/25/18 10/26/18 17:53 21:20 04:59 WBC RBC Hgb 8.0 L Hct 24.4 L MCH RDW Plt Count Lymph % (Auto) [place] % (Auto) Lymph # [place] # Eos # Baso # Seg Neutrophils % Seg Neuts % (Manual) Lymphocytes % (Manual) Seg Neutrophils # Seg Neutrophils # Man Lymphocytes # (Manual) PT INR APTT Heparin Anti-Xa Level POC ABG pH POC ABG pCO2 POC ABG pO2 Sodium Potassium Chloride Carbon Dioxide BUN Creatinine Glucose POC Glucose 298 H 336 H Hemoglobin A1c Lactic Acid Calcium Phosphorus AST Alkaline Phosphatase NT-Pro-B Natriuret Pep Total Protein Albumin Urine WBC (Auto) Crossmatch 10/26/18 10/26/18 10/26/18 04:59 07:48 12:33 WBC RBC Hgb Hct MCH RDW Plt Count Lymph % (Auto) [place] % (Auto) Lymph # [place] # Eos # Baso # Seg Neutrophils % Seg Neuts % (Manual) Lymphocytes % (Manual) Seg Neutrophils # Seg Neutrophils # Man Lymphocytes # (Manual) PT INR APTT Heparin Anti-Xa Level 0.21 L 0.19 L POC ABG pH POC ABG pCO2 POC ABG pO2 Sodium Potassium Chloride Carbon Dioxide BUN Creatinine Glucose POC Glucose 339 H Hemoglobin A1c Lactic Acid Calcium Phosphorus AST Alkaline Phosphatase NT-Pro-B Natriuret Pep Total Protein Albumin Urine WBC (Auto) Crossmatch 10/26/18 10/26/18 10/26/18 15:49 15:54 17:36 WBC RBC Hgb Hct MCH RDW Plt Count Lymph % (Auto) [place] % (Auto) Lymph # [place] # Eos # Baso # Seg Neutrophils % Seg Neuts % (Manual) Lymphocytes % (Manual) Seg Neutrophils # Seg Neutrophils # Man Lymphocytes # (Manual) PT INR APTT Heparin Anti-Xa Level POC ABG pH POC ABG pCO2 POC ABG pO2 Sodium Potassium Chloride Carbon Dioxide BUN Creatinine Glucose 49 L POC Glucose < 40 L 226 H Hemoglobin A1c Lactic Acid Calcium Phosphorus AST Alkaline Phosphatase NT-Pro-B Natriuret Pep Total Protein Albumin Urine WBC (Auto) Crossmatch 10/26/18 10/26/18 10/27/18 19:42 21:08 03:00 WBC RBC Hgb 7.9 L Hct 23.8 L MCH RDW Plt Count 629 H Lymph % (Auto) [place] % (Auto) Lymph # [place] # Eos # Baso # Seg Neutrophils % Seg Neuts % (Manual) Lymphocytes % (Manual) Seg Neutrophils # Seg Neutrophils # Man Lymphocytes # (Manual) PT INR APTT Heparin Anti-Xa Level 0.19 L POC ABG pH POC ABG pCO2 POC ABG pO2 Sodium Potassium Chloride Carbon Dioxide BUN Creatinine Glucose POC Glucose 234 H Hemoglobin A1c Lactic Acid Calcium Phosphorus AST Alkaline Phosphatase NT-Pro-B Natriuret Pep Total Protein Albumin Urine WBC (Auto) Crossmatch Allied health notes reviewed: nursing
[2018-10-27] MEDS: LOPRESSOR PO SCH ×3 (08:59→22:50)
[2018-10-27] MEDS: LASIX PO SCH (10:40)
[2018-10-27] MEDS: PREVACID SOLUTAB FEEDTUBE SCH ×2 (10:40→22:43)
[2018-10-27] MEDS: SODIUM CHLORIDE FLUSH SYRINGE 10 ML IV SCH ×2 (10:41→22:43)
[2018-10-27] MEDS: LANTUS SUB-Q SCH (10:43)
[2018-10-27] MEDS: HEPARIN/ 0.45% NACL-25,000 UNIT/500 ML 25,000 UNIT/500 ML BAG IV SCH (10:43)
--- NOTE | 2018-10-27 13:40 | Progress Note ---
Assessment and Plan Assessment and plan: 48 year old woman with history of coronary artery disease, status post cabbage, diabetes, hypertension who was brought to the emergency room for altered mental status. She was found to have hypoglycemia, she was also having convulsions at the time of admission. The patient was intubated, sp dextrose she was put on the ventilator she was found to have pneumonia and CHF flare and started on antibiotics. patient has history of MV replacement and was on anticoagulation. Pneumonia, severe sepsis - Patient was on IV antibiotics and completed on 10/13 per ID Acute hypoxic respiratory failure on MV >96 hrs Was intubated and on mechanical ventilation - patient was extubated on 10/13 -Weaned to room air on 10/19, status epilepticus; Seizures when most likely due to hypoglycemia -Treated with dextrose - neurology consult appreciated Acute on chronic systolic CHF EF 40%, dilated ventricles -cardiology consult appreciated, sp lasix, now on PO lasix History of [facility] mitral valve replacement/hypercoaguable state/coagulopathy due to warfarin INR subtherapeutic, on heparin ggt INR is 1.17 and pharmacy to consult Severe anemia sp-transfusion, Gi workup showed neg egd and c scope, outpatient pill camera recommended Currently stable 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 INR is 1.17. History Interval history: Patient was seen and evaluated this morning, patient was extubated on 10/12/18. Patient was alert and oriented. She said she is feeling better. Hospitalist Physical - Physical exam Narrative exam: Patient is not in cardiopulmonary distress. The patient appeared well nourished and normally developed. Vital signs as documented. Head exam is unremarkable. No scleral icterus . Neck is without jugular venous distension, thyromegaly, or carotid bruits. Lungs are clear to auscultation. Cardiac exam reveals regular rate and Rhythm. Abdominal exam reveals normal bowel sounds Extremities are nonedematous. 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 - Constitutional Vitals: Temp Pulse Resp BP Pulse Ox 98.7 F 94 H 18 129/76 99 10/27/18 13:16 10/27/18 13:16 10/27/18 13:16 10/27/18 13:16 10/27/18 13:16 General appearance: Present: other (intubated, eyes open, no purposeful response to commands) Results - Labs CBC & Chem 7: 10/27/18 03:00 10/26/18 15:54 Labs: Laboratory Last Values WBC 14.4 K/mm3 (4.5-11.0) H 10/23/18 07:21 RBC 3.29 M/mm3 (3.65-5.03) L 10/23/18 07:21 Hgb 7.9 gm/dl (10.1-14.3) L 10/27/18 03:00 Hct 23.8 % (30.3-42.9) L 10/27/18 03:00 MCV 84 fl (79-97) 10/23/18 07:21 MCH 28 pg (28-32) 10/23/18 07:21 MCHC 33 % (30-34) 10/23/18 07:21 RDW 20.5 % (13.2-15.2) H 10/23/18 07:21 Plt Count 629 K/mm3 (140-440) H 10/27/18 03:00 Lymph % (Auto) 8.1 % (13.4-35.0) L 10/23/18 07:21 Yates % (Auto) 7.3 % (0.0-7.3) 10/23/18 07:21 Eos % (Auto) 3.8 % (0.0-4.3) 10/23/18 07:21 Baso % (Auto) 0.8 % (0.0-1.8) 10/23/18 07:21 Lymph # 1.2 K/mm3 (1.2-5.4) 10/23/18 07:21 Yates # 1.0 K/mm3 (0.0-0.8) H 10/23/18 07:21 Eos # 0.6 K/mm3 (0.0-0.4) H 10/23/18 07:21 Baso # 0.1 K/mm3 (0.0-0.1) 10/23/18 07:21 Add Manual Diff Complete 10/17/18 05:00 Total Counted 100 10/17/18 05:00 Seg Neutrophils % 80.0 % (40.0-70.0) H 10/23/18 07:21 Seg Neuts % (Manual) 87.0 % (40.0-70.0) H 10/17/18 05:00 0 % 10/17/18 05:00 9.0 % (13.4-35.0) L 10/17/18 05:00 Reactive Lymphs % (Man) 0 % 10/17/18 05:00 2.0 % (0.0-7.3) 10/17/18 05:00 2.0 % (0.0-4.3) 10/17/18 05:00 0 % (0.0-1.8) 10/17/18 05:00 0 % 10/17/18 05:00 0 % 10/17/18 05:00 0 % 10/17/18 05:00 0 % 10/17/18 05:00 Nucleated RBC % Not Reportable 10/17/18 05:00 Seg Neutrophils # 11.5 K/mm3 (1.8-7.7) H 10/23/18 07:21 Seg Neutrophils # Man 10.1 K/mm3 (1.8-7.7) H 10/17/18 05:00 Band Neutrophils # 0.0 K/mm3 10/17/18 05:00 1.0 K/mm3 (1.2-5.4) L 10/17/18 05:00 Abs React Lymphs (Man) 0.0 K/mm3 10/17/18 05:00 0.2 K/mm3 (0.0-0.8) 10/17/18 05:00 0.2 K/mm3 (0.0-0.4) 10/17/18 05:00 0.0 K/mm3 (0.0-0.1) 10/17/18 05:00 0.0 K/mm3 10/17/18 05:00 0.0 K/mm3 10/17/18 05:00 0.0 K/mm3 10/17/18 05:00 Blast Cells # 0.0 K/mm3 10/17/18 05:00 WBC Morphology Not Reportable 10/17/18 05:00 Hypersegmented Neuts Not Reportable 10/17/18 05:00 Hyposegmented Neuts Not Reportable 10/17/18 05:00 Hypogranular Neuts Not Reportable 10/17/18 05:00 Not Reportable 10/17/18 05:00 Not Reportable 10/17/18 05:00 Not Reportable 10/17/18 05:00 Not Reportable 10/17/18 05:00 Not Reportable 10/17/18 05:00 Not Reportable 10/17/18 05:00 Consistent w auto 10/17/18 05:00 Not Reportable 10/17/18 05:00 Plt Clumps, EDTA Not Reportable 10/17/18 05:00 Not Reportable 10/17/18 05:00 Not Reportable 10/17/18 05:00 Not Reportable 10/17/18 05:00 Plt Morphology Comment Not Reportable 10/17/18 05:00 RBC Morphology Not Reportable 10/17/18 05:00 Dimorphic RBCs Not Reportable 10/17/18 05:00 Not Reportable 10/17/18 05:00 1+ 10/17/18 05:00 Few 10/17/18 05:00 1+ 10/17/18 05:00 Not Reportable 10/17/18 05:00 Rare 10/17/18 05:00 Not Reportable 10/17/18 05:00 Not Reportable 10/17/18 05:00 Not Reportable 10/17/18 05:00 Not Reportable 10/17/18 05:00 Not Reportable 10/17/18 05:00 Not Reportable 10/17/18 05:00 Not Reportable 10/17/18 05:00 Not Reportable 10/17/18 05:00 Not Reportable 10/17/18 05:00 Not Reportable 10/17/18 05:00 Not Reportable 10/17/18 05:00 Not Reportable 10/17/18 05:00 Not Reportable 10/17/18 05:00 Acanthocytes (Spur) Not Reportable 10/17/18 05:00 Rouleaux Not Reportable 10/17/18 05:00 Not Reportable 10/17/18 05:00 Not Reportable 10/17/18 05:00 Not Reportable 10/17/18 05:00 Not Reportable 10/17/18 05:00 Hem Pathologist Commnt No 10/17/18 05:00 PT 14.5 Sec. (12.2-14.9) 10/27/18 06:53 INR 1.06 (0.87-1.13) 10/27/18 06:53 APTT 71.0 Sec. (24.2-36.6) H* 10/22/18 11:20 Heparin Anti-Xa Level 0.33 U.I./ml (0.3-0.7) 10/27/18 03:00 POC ABG pH 7.458 (7.35-7.45) H 10/19/18 19:56 POC ABG pCO2 37.9 (35-45) 10/19/18 19:56 POC ABG pO2 63 (80-105) L 10/19/18 19:56 POC ABG HCO3 26.8 (22-26 mml/L) 10/19/18 19:56 POC ABG Total CO2 28 (23-27mmol/L) 10/19/18 19:56 POC ABG O2 Sat 93 10/19/18 19:56 POC ABG Base Excess 3 ((-2) - (+3)mmol/L) 10/19/18 19:56 2 % 10/19/18 19:56 Sodium 137 mmol/L (137-145) 10/23/18 07:21 Potassium 4.0 mmol/L (3.6-5.0) 10/23/18 07:21 Chloride 100.4 mmol/L (98-107) 10/23/18 07:21 Carbon Dioxide 23 mmol/L (22-30) 10/23/18 07:21 18 mmol/L 10/23/18 07:21 BUN 18 mg/dL (7-17) H 10/23/18 07:21 1.5 mg/dL (0.7-1.2) H 10/23/18 07:21 Estimated GFR 45 ml/min 10/23/18 07:21 12 % 10/23/18 07:21 Glucose 49 mg/dL (65-100) L 10/26/18 15:54 POC Glucose 287 (70-105) H 10/27/18 12:30 10.2 % (4-6) H 10/07/18 22:08 Lactic Acid 1.50 mmol/L (0.7-2.0) 10/08/18 17:09 Calcium 8.4 mg/dL (8.4-10.2) 10/23/18 07:21 Phosphorus 7.40 mg/dL (2.5-4.5) H 10/07/18 22:08 Magnesium 1.70 mg/dL (1.7-2.3) 10/18/18 20:20 0.60 mg/dL (0.1-1.2) 10/17/18 05:00 < 0.2 mg/dL (0-0.2) 10/17/18 05:00 0.4 mg/dL 10/17/18 05:00 AST 14 units/L (5-40) 10/17/18 05:00 ALT 8 units/L (7-56) 10/17/18 05:00 104 units/L (35-129) 10/17/18 05:00 40.0 umol/L (25-60) 10/07/18 02:43 < 0.010 ng/mL (0.00-0.029) 10/07/18 08:59 0.20 mg/dL (0.00-1.30) 10/07/18 14:55 NT-Pro-B Natriuret Pep 2865 pg/mL (0-450) H 10/09/18 03:20 5.4 g/dL (6.3-8.2) L 10/17/18 05:00 2.2 g/dL (3.9-5) L 10/17/18 05:00 0.7 % 10/17/18 05:00 Fay (Yellow) 10/21/18 11:00 Cloudy (Clear) 10/21/18 11:00 5.0 (5.0-7.0) 10/21/18 11:00 Ur Specific [place] 1.022 (1.003-1.030) 10/21/18 11:00 >500 mg/dL (Negative) 10/21/18 11:00 50 mg/dL (Negative) 10/21/18 11:00 Neg mg/dL (Negative) 10/21/18 11:00 Lg (Negative) 10/21/18 11:00 Neg (Negative) 10/21/18 11:00 Neg (Negative) 10/21/18 11:00 < 2.0 mg/dL (<2.0) 10/21/18 11:00 Ur Leukocyte Esterase Mod (Negative) 10/21/18 11:00 125.0 /HPF (0.0-6.0) H 10/21/18 11:00 131.0 /HPF (0.0-6.0) 10/21/18 11:00 U Epithel Cells (Auto) 2.0 /HPF (0-13.0) 10/21/18 11:00 2+ /HPF 10/21/18 11:00 Hyaline Casts 3 /LPF 10/07/18 02:34 Few /HPF 10/07/18 02:34 3+ /HPF 10/21/18 11:00 Presumptive negative 10/07/18 02:34 Presumptive negative 10/07/18 02:34 Ur Barbiturates Screen Presumptive negative 10/07/18 02:34 Ur Phencyclidine Scrn Presumptive negative 10/07/18 02:34 Ur Amphetamines Screen Presumptive negative 10/07/18 02:34 U Benzodiazepines Scrn Presumptive negative 10/07/18 02:34 Presumptive negative 10/07/18 02:34 U Marijuana (THC) Screen Presumptive positive 10/07/18 02:34 Disclamer 10/07/18 02:34 Blood Type O POSITIVE 10/22/18 04:39 Antibody Screen Negative 10/22/18 04:39 Crossmatch See Detail 10/22/18 04:39 Active Medications - Current Medications Current Medications: Generic Name Dose Route Start Last Admin Trade Name Freq PRN Reason Stop Dose Admin Acetaminophen 650 mg 10/07/18 04:59 10/20/18 12:56 Tylenol PO 650 mg Q4H PRN Administration Pain MILD(1-3)/Fever >100.5/RODRIGUEZ Lipase/Protease/Amylase 1 each 10/08/18 10:[address] 10,500 Unit FEEDTUBE PRN PRN For Clogged Feeding Tube Dextrose 50 ml 10/07/18 20:42 10/26/18 16:06 D50w (25gm) Syringe IV 50 ml PRN PRN Administration Hypoglycemia Furosemide 40 mg 10/19/18 11:00 10/27/18 10:40 Lasix PO 40 mg QDAY ULI Administration Hydralazine HCl 10 mg 10/07/18 05:07 10/14/18 08:35 Apresoline IV 10 mg Q4H PRN Administration Blood Pressure Hydrophilic Ointment 1 applic 10/07/18 02:40 Vaseline Lip Therapy TP Q2HR PRN Dry Lips Heparin Sodium/Sodium Chloride 25,000 unit in 500 mls @ 15 mls/hr 10/21/18 18:00 10/27/18 10:43 Heparin/ 0.45% Nacl-25,000 Unit/500 Ml IV 1,050 units/hr TITRATE ULI 21 mls/hr Administration Protocol 750 UNITS/HR Insulin Glargine 8 units 10/24/18 10:00 10/27/18 10:43 Lantus SUB-Q 8 units DAILY ULI Administration Insulin Human Lispro 0 unit 10/25/18 11:30 10/27/18 13:14 Humalog SUB-Q 3 unit ACHS ULI Administration Protocol Lansoprazole 30 mg 10/16/18 22:00 10/27/18 10:40 Prevacid Solutab FEEDTUBE 30 mg BID ULI Administration Metoclopramide HCl 10 mg 10/11/18 13:00 10/12/18 19:32 Reglan IV 10 mg Q6HR PRN Administration Nausea And Vomiting Metoprolol Tartrate 12.5 mg 10/23/18 14:46 10/27/18 08:59 Lopressor PO 12.5 mg TID ULI Administration Multi-Ingred Cream/Lotion/Oil/Oint 1 applic 10/07/18 02:40 Artificial Tears Ophth Oint OU Q4HR PRN Dry Eye(s) Ondansetron HCl 4 mg 10/07/18 04:59 Zofran IV Q8H PRN N/V unrelieved by Reglan Quetiapine Fumarate 100 mg 10/09/18 22:00 10/26/18 21:02 Seroquel PO 100 mg QHS ULI Administration Simple Syrup 15 ml 10/08/18 10:00 Simple Syrup FEEDTUBE PRN PRN Hypoglycemia Simple Syrup 30 ml 10/08/18 10:00 10/09/18 01:09 Simple Syrup FEEDTUBE 30 ml PRN PRN Administration Hypoglycemia Sodium Bicarbonate 325 mg 10/08/18 10:00 Sodium Bicarbonate FEEDTUBE PRN PRN For Clogged Feeding Tube Sodium Chloride 10 ml 10/07/18 10:00 10/27/18 10:41 Sodium Chloride Flush Syringe 10 Ml IV 10 ml BID ULI Administration Sodium Chloride 10 ml 10/07/18 04:59 10/18/18 07:15 Sodium Chloride Flush Syringe 10 Ml IV 10 ml PRN PRN Administration LINE FLUSH Warfarin Sodium 7.5 mg 10/26/18 17:00 10/26/18 17:37 Coumadin PO 7.5 mg DAILY@1700 ULI Administration Nutrition/Malnutrition Assess - Dietary Evaluation Nutrition/Malnutrition Findings: Nutrition Notes Start: 10/07/18 12:17 Freq: Status: Active Protocol: Document 10/25/18 17:02 RM (Rec: 10/25/18 17:05 [id number]) Nutrition Notes Initial or Follow up Reassessment Current Diagnosis CKD (stage V CKD),Diabetes, Hypertension,Heart Failure Other Pertinent Diagnosis DKA, AMS Current Diet Consistent CHO Labs/Tests Reviewed Pertinent Medications Lasix Height 5 ft 2 in Weight 53 kg [place] Body Weight (kg) 50.00 BMI 21.3 Subjective/Other Information Pt stated that her appetite is good and that she eats all of her meals. Noted lunch at bedside w/100% eaten. Percent of energy/protein needs met: 100%/100% Burn Absent Trauma Absent #1 Nutrition Diagnosis Inadequate oral intake As Evidenced by Signs and Symptoms pt meeting 100% of calorie and protein needs Diagnosis Progress(for reassessment Resolved documentation) Is patient on ventilator? No Is Patient Ambulatory and/or Out of Bed No REE-([facility]-confined to bed) 1333.968 Calculation Used for Recommendations [facility] Additional Notes Pro needs 0.8-1g/k-55g/ day Fluid needs 1ml/kcal Nutrition Intervention Change Diet Order: Continue current Goal #1 Continue to meet at least 75% of calorie and protein needs via PO intakes Anticipated Discharge Needs: Consistent CHO diet Revisit per MD consult or patient Sign Off request:
[2018-10-27] MEDS: COUMADIN PO SCH (18:35)
[2018-10-28 04:11] LABS: Hematocrit 23.5 % (30.3-42.9); Hemoglobin 7.7 gm/dl (10.1-14.3)
[2018-10-28 04:22] LABS: INR 1.12 (0.87-1.13)
[2018-10-28] MEDS: PREVACID SOLUTAB FEEDTUBE SCH ×2 (09:18→21:17)
[2018-10-28] MEDS: HumaLOG SUB-Q SCH ×4 (09:19→22:02)
[2018-10-28] MEDS: LOPRESSOR PO SCH ×3 (09:19→21:17)
[2018-10-28] MEDS: LANTUS SUB-Q SCH (09:21)
[2018-10-28] MEDS: SODIUM CHLORIDE FLUSH SYRINGE 10 ML IV SCH ×2 (10:48→21:18)
[2018-10-28] MEDS: LASIX PO SCH (10:49)
--- NOTE | 2018-10-28 10:56 | Progress Note ---
Assessment and Plan Acute hypoxemic respiratory failure, s/p mechanical ventilatory support. Symptomatic hypoglycemia. Seizures, possibly related to the hypoglycemia. Acute encephalopathy, toxic metabolic. Mild Hyponatremia Hyperkalemia s/p CABG with mechanical valve History of cardiomyopathy. (EF 40%) Right pleural effusion with infiltrate- probable aspiration History of diabetes. Hypertension. Subtherapeutic INR -Wean supplemental oxygen to keep O2 sats 88-90% -PRN ABGs/CXR -Heart failure measures -Monitor renal indices closely -Avoid nephrotoxic agents, adjust all medications for CrCL -Strict intake and output monitoring -VTE prophylaxis- anticoagulated. Has a mechanical valve Coumadin, daily PT/INR, goal INR is 2.5-3.5 Falls precautions Antibiotics, completed course Supportive transfusions as indicated -Accuchecks with glycemic control. Target glucose of 140-180 mg/dL -Bronchodilators with pulmonary hygiene per RT -Maintenance of sleep -wake cycle -Influenza and pneumonia vaccination per protocol -PT/OT as tolerated -Discharge planning -Discussed with hospitalist service Subjective Date of service: 10/28/18 Principal diagnosis: Ac hypoxemic resp failure; Seizures (?hypoglycemic); Ac encephalopathy(T/M) Interval history: Patient is seen today for: Acute hypoxemic respiratory failure, s/p mechanical ventilatory support; Symptomatic hypoglycemia; Seizures, possibly related to the hypoglycemia; Acute encephalopathy, toxic metabolic; Mild Hyponatremia; History of cardiomyopathy. (EF 40%) Seen and examined at bedside; 24hour events reviewed; nursing and respiratory care staff consulted; no adverse overnight events reported to me; no fevers,no further episodes of bleeding today. On supplemental oxygen at 2L via [place] . No nausea or vomiting Objective Vital Signs - 12hr 10/28/18 10/28/18 06:07 09:19 Temperature 98.2 F Pulse Rate 91 H 91 H Respiratory 18 Rate Blood Pressure 150/96 150/96 O2 Sat by Pulse 97 Oximetry Constitutional: no acute distress, alert Eyes: non-icteric ENT: oropharynx moist Neck: supple, no lymphadenopathy, no JVD Effort: normal Ascultation: Bilateral: clear, diminished breath sounds (bases) Cardiovascular: regular rate and rhythm, other (+ metalic valve click) Gastrointestinal: normoactive bowel sounds, soft, non-tender, non-distended, other (No HSM) Integumentary: normal Extremities: no cyanosis, no edema, pulses normal, no ischemia or petechiae Neurologic: non-focal exam (grossly), pupils equal and round, CN II-XII normal, motor strength normal and, other Psychiatric: other (flat affect) CBC and BMP: 10/29/18 07:06 10/26/18 15:54 ABG, PT/INR, D-dimer: ABG POC ABG pH 7.458 (7.35-7.45) H 10/19/18 19:56 POC ABG pCO2 37.9 (35-45) 10/19/18 19:56 POC ABG pO2 63 (80-105) L 10/19/18 19:56 POC ABG HCO3 26.8 (22-26 mml/L) 10/19/18 19:56 POC ABG Total CO2 28 (23-27mmol/L) 10/19/18 19:56 POC ABG O2 Sat 93 10/19/18 19:56 PT/INR, D-dimer PT 15.1 Sec. (12.2-14.9) H 10/28/18 03:57 INR 1.12 (0.87-1.13) 10/28/18 03:57 Abnormal lab findings: Abnormal Labs 10/07/18 10/07/18 10/07/18 02:20 02:43 02:43 WBC RBC Hgb Hct MCH 25 L RDW 21.5 H Plt Count Lymph % (Auto) [place] % (Auto) Lymph # 0.9 L [place] # Eos # Baso # Seg Neutrophils % 78.4 H Seg Neuts % (Manual) Lymphocytes % (Manual) Seg Neutrophils # Seg Neutrophils # Man Lymphocytes # (Manual) PT INR APTT Heparin Anti-Xa Level POC ABG pH POC ABG pCO2 POC ABG pO2 Sodium Potassium Chloride 108.0 H Carbon Dioxide 21 L BUN Creatinine 1.5 H Glucose 115 H POC Glucose 136 H Hemoglobin A1c Lactic Acid Calcium Phosphorus AST 51 H Alkaline Phosphatase 257 H NT-Pro-B Natriuret Pep Total Protein Albumin Urine WBC (Auto) Crossmatch 10/07/18 10/07/18 10/07/18 02:43 04:32 05:12 WBC RBC Hgb Hct MCH RDW Plt Count Lymph % (Auto) [place] % (Auto) Lymph # [place] # Eos # Baso # Seg Neutrophils % Seg Neuts % (Manual) Lymphocytes % (Manual) Seg Neutrophils # Seg Neutrophils # Man Lymphocytes # (Manual) PT 25.4 H INR 2.14 H APTT Heparin Anti-Xa Level POC ABG pH POC ABG pCO2 33.6 L POC ABG pO2 69 L Sodium Potassium Chloride Carbon Dioxide BUN Creatinine Glucose POC Glucose Hemoglobin A1c Lactic Acid 2.40 H* Calcium Phosphorus AST Alkaline Phosphatase NT-Pro-B Natriuret Pep Total Protein Albumin Urine WBC (Auto) Crossmatch 10/07/18 10/07/18 10/07/18 06:28 18:39 20:26 WBC RBC Hgb Hct MCH RDW Plt Count Lymph % (Auto) [place] % (Auto) Lymph # [place] # Eos # Baso # Seg Neutrophils % Seg Neuts % (Manual) Lymphocytes % (Manual) Seg Neutrophils # Seg Neutrophils # Man Lymphocytes # (Manual) PT INR APTT Heparin Anti-Xa Level POC ABG pH POC ABG pCO2 POC ABG pO2 Sodium Potassium Chloride Carbon Dioxide BUN Creatinine Glucose POC Glucose 164 H 440 H > 500 H Hemoglobin A1c Lactic Acid Calcium Phosphorus AST Alkaline Phosphatase NT-Pro-B Natriuret Pep Total Protein Albumin Urine WBC (Auto) Crossmatch 10/07/18 10/07/18 10/07/18 20:28 21:53 22:08 WBC RBC Hgb Hct MCH RDW Plt Count Lymph % (Auto) [place] % (Auto) Lymph # [place] # Eos # Baso # Seg Neutrophils % Seg Neuts % (Manual) Lymphocytes % (Manual) Seg Neutrophils # Seg Neutrophils # Man Lymphocytes # (Manual) PT INR APTT Heparin Anti-Xa Level POC ABG pH POC ABG pCO2 POC ABG pO2 Sodium 136 L D Potassium 6.4 H* D Chloride Carbon Dioxide 10 L D BUN 30 H Creatinine 2.0 H Glucose 544 H* POC Glucose 483 H > 500 H Hemoglobin A1c Lactic Acid Calcium 7.0 L D Phosphorus AST Alkaline Phosphatase NT-Pro-B Natriuret Pep Total Protein Albumin Urine WBC (Auto) Crossmatch 10/07/18 10/07/18 10/07/18 22:08 22:08 22:56 WBC RBC Hgb Hct MCH RDW Plt Count Lymph % (Auto) [place] % (Auto) Lymph # [place] # Eos # Baso # Seg Neutrophils % Seg Neuts % (Manual) Lymphocytes % (Manual) Seg Neutrophils # Seg Neutrophils # Man Lymphocytes # (Manual) PT INR APTT Heparin Anti-Xa Level POC ABG pH POC ABG pCO2 POC ABG pO2 Sodium Potassium Chloride Carbon Dioxide BUN Creatinine Glucose POC Glucose 462 H Hemoglobin A1c 10.2 H Lactic Acid Calcium Phosphorus 7.40 H AST Alkaline Phosphatase NT-Pro-B Natriuret Pep Total Protein Albumin Urine WBC (Auto) Crossmatch 10/07/18 10/08/18 10/08/18 23:39 00:58 02:09 WBC RBC Hgb Hct MCH RDW Plt Count Lymph % (Auto) [place] % (Auto) Lymph # [place] # Eos # Baso # Seg Neutrophils % Seg Neuts % (Manual) Lymphocytes % (Manual) Seg Neutrophils # Seg Neutrophils # Man Lymphocytes # (Manual) PT INR APTT Heparin Anti-Xa Level POC ABG pH POC ABG pCO2 POC ABG pO2 Sodium Potassium Chloride Carbon Dioxide BUN Creatinine Glucose POC Glucose 396 H 375 H 285 H Hemoglobin A1c Lactic Acid Calcium Phosphorus AST Alkaline Phosphatase NT-Pro-B Natriuret Pep Total Protein Albumin Urine WBC (Auto) Crossmatch 10/08/18 10/08/18 10/08/18 03:10 03:33 04:05 WBC RBC Hgb Hct MCH RDW Plt Count Lymph % (Auto) [place] % (Auto) Lymph # [place] # Eos # Baso # Seg Neutrophils % Seg Neuts % (Manual) Lymphocytes % (Manual) Seg Neutrophils # Seg Neutrophils # Man Lymphocytes # (Manual) PT INR APTT Heparin Anti-Xa Level POC ABG pH 7.243 L POC ABG pCO2 33.8 L POC ABG pO2 126 H Sodium Potassium 5.3 H Chloride 110.7 H Carbon Dioxide 14 L BUN 33 H Creatinine 2.2 H Glucose 193 H POC Glucose 251 H Hemoglobin A1c Lactic Acid Calcium 7.0 L Phosphorus AST Alkaline Phosphatase 155 H NT-Pro-B Natriuret Pep Total Protein 5.2 L D Albumin 2.6 L Urine WBC (Auto) Crossmatch 10/08/18 10/08/18 10/08/18 04:05 04:05 04:09 WBC 11.8 H RBC 3.32 L Hgb 8.3 L Hct 27.5 L D MCH 25 L RDW 22.0 H Plt Count Lymph % (Auto) 6.8 L [place] % (Auto) 12.0 H Lymph # 0.8 L [place] # 1.4 H Eos # Baso # Seg Neutrophils % 80.6 H Seg Neuts % (Manual) Lymphocytes % (Manual) Seg Neutrophils # 9.5 H Seg Neutrophils # Man Lymphocytes # (Manual) PT INR APTT Heparin Anti-Xa Level POC ABG pH POC ABG pCO2 POC ABG pO2 Sodium Potassium Chloride Carbon Dioxide BUN Creatinine Glucose POC Glucose 175 H Hemoglobin A1c Lactic Acid 3.70 H* Calcium Phosphorus AST Alkaline Phosphatase NT-Pro-B Natriuret Pep Total Protein Albumin Urine WBC (Auto) Crossmatch 10/08/18 10/08/18 10/08/18 05:07 06:05 07:14 WBC RBC Hgb Hct MCH RDW Plt Count Lymph % (Auto) [place] % (Auto) Lymph # [place] # Eos # Baso # Seg Neutrophils % Seg Neuts % (Manual) Lymphocytes % (Manual) Seg Neutrophils # Seg Neutrophils # Man Lymphocytes # (Manual) PT INR APTT Heparin Anti-Xa Level POC ABG pH POC ABG pCO2 POC ABG pO2 Sodium Potassium Chloride Carbon Dioxide BUN Creatinine Glucose POC Glucose 125 H 122 H 147 H Hemoglobin A1c Lactic Acid Calcium Phosphorus AST Alkaline Phosphatase NT-Pro-B Natriuret Pep Total Protein Albumin Urine WBC (Auto) Crossmatch 10/08/18 10/08/18 10/08/18 07:22 08:09 08:47 WBC RBC Hgb Hct MCH RDW Plt Count Lymph % (Auto) [place] % (Auto) Lymph # [place] # Eos # Baso # Seg Neutrophils % Seg Neuts % (Manual) Lymphocytes % (Manual) Seg Neutrophils # Seg Neutrophils # Man Lymphocytes # (Manual) PT INR APTT Heparin Anti-Xa Level POC ABG pH POC ABG pCO2 POC ABG pO2 Sodium Potassium 5.2 H Chloride 112.4 H Carbon Dioxide 17 L BUN 32 H Creatinine 2.1 H Glucose 148 H POC Glucose 134 H 148 H Hemoglobin A1c Lactic Acid Calcium 6.6 L Phosphorus AST Alkaline Phosphatase NT-Pro-B Natriuret Pep Total Protein Albumin Urine WBC (Auto) Crossmatch 10/08/18 10/08/18 10/08/18 10:21 13:29 14:21 WBC RBC Hgb Hct MCH RDW Plt Count Lymph % (Auto) [place] % (Auto) Lymph # [place] # Eos # Baso # Seg Neutrophils % Seg Neuts % (Manual) Lymphocytes % (Manual) Seg Neutrophils # Seg Neutrophils # Man Lymphocytes # (Manual) PT INR APTT Heparin Anti-Xa Level POC ABG pH POC ABG pCO2 POC ABG pO2 Sodium Potassium Chloride Carbon Dioxide BUN Creatinine Glucose POC Glucose 115 H 109 H 118 H Hemoglobin A1c Lactic Acid Calcium Phosphorus AST Alkaline Phosphatase NT-Pro-B Natriuret Pep Total Protein Albumin Urine WBC (Auto) Crossmatch 10/08/18 10/08/18 10/08/18 15:27 17:00 17:00 WBC 11.3 H RBC 3.21 L Hgb 7.9 L Hct 25.7 L MCH 25 L RDW 21.8 H Plt Count Lymph % (Auto) 8.5 L [place] % (Auto) 7.7 H Lymph # 1.0 L [place] # 0.9 H Eos # Baso # Seg Neutrophils % 82.8 H Seg Neuts % (Manual) Lymphocytes % (Manual) Seg Neutrophils # 9.3 H Seg Neutrophils # Man Lymphocytes # (Manual) PT INR APTT Heparin Anti-Xa Level POC ABG pH POC ABG pCO2 POC ABG pO2 Sodium Potassium Chloride Carbon Dioxide BUN Creatinine Glucose POC Glucose 129 H Hemoglobin A1c Lactic Acid Calcium Phosphorus AST Alkaline Phosphatase NT-Pro-B Natriuret Pep 3097 H Total Protein Albumin Urine WBC (Auto) Crossmatch 10/08/18 10/08/18 10/08/18 17:07 17:12 18:22 WBC RBC Hgb Hct MCH RDW Plt Count Lymph % (Auto) [place] % (Auto) Lymph # [place] # Eos # Baso # Seg Neutrophils % Seg Neuts % (Manual) Lymphocytes % (Manual) Seg Neutrophils # Seg Neutrophils # Man Lymphocytes # (Manual) PT INR APTT Heparin Anti-Xa Level POC ABG pH 7.337 L POC ABG pCO2 32.0 L POC ABG pO2 130 H Sodium Potassium Chloride 115.5 H Carbon Dioxide 17 L BUN 30 H Creatinine 1.9 H Glucose 103 H POC Glucose 119 H Hemoglobin A1c Lactic Acid Calcium 6.9 L Phosphorus AST Alkaline Phosphatase NT-Pro-B Natriuret Pep Total Protein Albumin Urine WBC (Auto) Crossmatch 10/08/18 10/08/18 10/09/18 20:09 20:57 01:10 WBC RBC Hgb Hct MCH RDW Plt Count Lymph % (Auto) [place] % (Auto) Lymph # [place] # Eos # Baso # Seg Neutrophils % Seg Neuts % (Manual) Lymphocytes % (Manual) Seg Neutrophils # Seg Neutrophils # Man Lymphocytes # (Manual) PT INR APTT Heparin Anti-Xa Level POC ABG pH POC ABG pCO2 POC ABG pO2 Sodium Potassium Chloride 114.3 H 113.7 H Carbon Dioxide 15 L 14 L BUN 29 H 29 H Creatinine 2.1 H 2.0 H Glucose 132 H 39 L* POC Glucose 150 H Hemoglobin A1c Lactic Acid Calcium 6.7 L 6.9 L Phosphorus AST Alkaline Phosphatase NT-Pro-B Natriuret Pep Total Protein Albumin Urine WBC (Auto) Crossmatch 10/09/18 10/09/18 10/09/18 01:10 01:43 03:20 WBC RBC Hgb Hct MCH RDW Plt Count Lymph % (Auto) [place] % (Auto) Lymph # [place] # Eos # Baso # Seg Neutrophils % Seg Neuts % (Manual) Lymphocytes % (Manual) Seg Neutrophils # Seg Neutrophils # Man Lymphocytes # (Manual) PT INR APTT Heparin Anti-Xa Level POC ABG pH POC ABG pCO2 POC ABG pO2 Sodium Potassium Chloride Carbon Dioxide BUN Creatinine Glucose POC Glucose < 40 L < 40 L Hemoglobin A1c Lactic Acid Calcium Phosphorus AST Alkaline Phosphatase NT-Pro-B Natriuret Pep 2865 H Total Protein Albumin Urine WBC (Auto) Crossmatch 10/09/18 10/09/18 10/09/18 04:23 05:03 05:25 WBC RBC Hgb Hct MCH RDW Plt Count Lymph % (Auto) [place] % (Auto) Lymph # [place] # Eos # Baso # Seg Neutrophils % Seg Neuts % (Manual) Lymphocytes % (Manual) Seg Neutrophils # Seg Neutrophils # Man Lymphocytes # (Manual) PT INR APTT Heparin Anti-Xa Level POC ABG pH POC ABG pCO2 30.6 L 32.3 L POC ABG pO2 118 H Sodium Potassium Chloride Carbon Dioxide BUN Creatinine Glucose POC Glucose 148 H Hemoglobin A1c Lactic Acid Calcium Phosphorus AST Alkaline Phosphatase NT-Pro-B Natriuret Pep Total Protein Albumin Urine WBC (Auto) Crossmatch 10/09/18 10/09/18 10/09/18 06:00 08:34 09:58 WBC RBC Hgb Hct MCH RDW Plt Count Lymph % (Auto) [place] % (Auto) Lymph # [place] # Eos # Baso # Seg Neutrophils % Seg Neuts % (Manual) Lymphocytes % (Manual) Seg Neutrophils # Seg Neutrophils # Man Lymphocytes # (Manual) PT INR APTT Heparin Anti-Xa Level POC ABG pH POC ABG pCO2 POC ABG pO2 Sodium Potassium Chloride Carbon Dioxide BUN Creatinine Glucose POC Glucose 173 H 196 H 183 H Hemoglobin A1c Lactic Acid Calcium Phosphorus AST Alkaline Phosphatase NT-Pro-B Natriuret Pep Total Protein Albumin Urine WBC (Auto) Crossmatch 10/09/18 10/09/18 10/09/18 12:25 12:46 18:16 WBC RBC Hgb Hct MCH RDW Plt Count Lymph % (Auto) [place] % (Auto) Lymph # [place] # Eos # Baso # Seg Neutrophils % Seg Neuts % (Manual) Lymphocytes % (Manual) Seg Neutrophils # Seg Neutrophils # Man Lymphocytes # (Manual) PT INR APTT Heparin Anti-Xa Level POC ABG pH POC ABG pCO2 POC ABG pO2 Sodium Potassium Chloride 110.3 H Carbon Dioxide 16 L BUN 24 H Creatinine 1.8 H Glucose 207 H POC Glucose 208 H 177 H Hemoglobin A1c Lactic Acid Calcium 6.9 L Phosphorus AST Alkaline Phosphatase NT-Pro-B Natriuret Pep Total Protein Albumin Urine WBC (Auto) Crossmatch 10/09/18 10/10/18 10/10/18 21:11 00:11 05:41 WBC RBC Hgb Hct MCH RDW Plt Count Lymph % (Auto) [place] % (Auto) Lymph # [place] # Eos # Baso # Seg Neutrophils % Seg Neuts % (Manual) Lymphocytes % (Manual) Seg Neutrophils # Seg Neutrophils # Man Lymphocytes # (Manual) PT INR APTT Heparin Anti-Xa Level POC ABG pH POC ABG pCO2 POC ABG pO2 Sodium Potassium Chloride Carbon Dioxide BUN Creatinine Glucose POC Glucose 124 H 156 H 42 L Hemoglobin A1c Lactic Acid Calcium Phosphorus AST Alkaline Phosphatase NT-Pro-B Natriuret Pep Total Protein Albumin Urine WBC (Auto) Crossmatch 10/10/18 10/10/18 10/10/18 05:45 07:28 12:07 WBC RBC Hgb Hct MCH RDW Plt Count Lymph % (Auto) [place] % (Auto) Lymph # [place] # Eos # Baso # Seg Neutrophils % Seg Neuts % (Manual) Lymphocytes % (Manual) Seg Neutrophils # Seg Neutrophils # Man Lymphocytes # (Manual) PT INR APTT Heparin Anti-Xa Level POC ABG pH POC ABG pCO2 POC ABG pO2 Sodium 146 H D Potassium Chloride 111.2 H Carbon Dioxide BUN 21 H Creatinine 1.8 H Glucose 44 L POC Glucose 114 H 49 L Hemoglobin A1c Lactic Acid Calcium 7.4 L Phosphorus AST Alkaline Phosphatase NT-Pro-B Natriuret Pep Total Protein Albumin Urine WBC (Auto) Crossmatch 10/10/18 10/10/18 10/10/18 12:37 18:02 20:47 WBC RBC Hgb Hct MCH RDW Plt Count Lymph % (Auto) [place] % (Auto) Lymph # [place] # Eos # Baso # Seg Neutrophils % Seg Neuts % (Manual) Lymphocytes % (Manual) Seg Neutrophils # Seg Neutrophils # Man Lymphocytes # (Manual) PT INR APTT Heparin Anti-Xa Level POC ABG pH POC ABG pCO2 POC ABG pO2 Sodium Potassium Chloride Carbon Dioxide BUN Creatinine Glucose POC Glucose 142 H 49 L 162 H Hemoglobin A1c Lactic Acid Calcium Phosphorus AST Alkaline Phosphatase NT-Pro-B Natriuret Pep Total Protein Albumin Urine WBC (Auto) Crossmatch 10/10/18 10/10/18 10/10/18 21:45 22:19 23:50 WBC RBC Hgb Hct MCH RDW Plt Count Lymph % (Auto) [place] % (Auto) Lymph # [place] # Eos # Baso # Seg Neutrophils % Seg Neuts % (Manual) Lymphocytes % (Manual) Seg Neutrophils # Seg Neutrophils # Man Lymphocytes # (Manual) PT INR APTT Heparin Anti-Xa Level POC ABG pH 7.334 L POC ABG pCO2 47.0 H POC ABG pO2 53 L 79 L Sodium Potassium Chloride Carbon Dioxide BUN Creatinine Glucose POC Glucose 185 H Hemoglobin A1c Lactic Acid Calcium Phosphorus AST Alkaline Phosphatase NT-Pro-B Natriuret Pep Total Protein Albumin Urine WBC (Auto) Crossmatch 10/11/18 10/11/18 10/11/18 05:00 06:41 07:17 WBC RBC Hgb Hct MCH RDW Plt Count Lymph % (Auto) [place] % (Auto) Lymph # [place] # Eos # Baso # Seg Neutrophils % Seg Neuts % (Manual) Lymphocytes % (Manual) Seg Neutrophils # Seg Neutrophils # Man Lymphocytes # (Manual) PT INR APTT Heparin Anti-Xa Level POC ABG pH POC ABG pCO2 POC ABG pO2 Sodium Potassium Chloride Carbon Dioxide BUN Creatinine 1.7 H Glucose 43 L POC Glucose 48 L 129 H Hemoglobin A1c Lactic Acid Calcium 7.7 L Phosphorus AST Alkaline Phosphatase NT-Pro-B Natriuret Pep Total Protein Albumin Urine WBC (Auto) Crossmatch 10/11/18 10/11/18 10/11/18 11:14 13:32 14:25 WBC RBC 3.32 L Hgb 8.2 L Hct 26.4 L MCH 25 L RDW 21.6 H Plt Count Lymph % (Auto) [place] % (Auto) Lymph # [place] # Eos # Baso # Seg Neutrophils % Seg Neuts % (Manual) Lymphocytes % (Manual) Seg Neutrophils # Seg Neutrophils # Man Lymphocytes # (Manual) PT 21.7 H INR 1.76 H APTT 50.5 H Heparin Anti-Xa Level POC ABG pH POC ABG pCO2 POC ABG pO2 Sodium Potassium Chloride Carbon Dioxide BUN Creatinine Glucose POC Glucose 138 H Hemoglobin A1c Lactic Acid Calcium Phosphorus AST Alkaline Phosphatase NT-Pro-B Natriuret Pep Total Protein Albumin Urine WBC (Auto) Crossmatch 10/11/18 10/11/18 10/11/18 14:25 15:41 17:31 WBC RBC Hgb Hct MCH RDW Plt Count Lymph % (Auto) [place] % (Auto) Lymph # [place] # Eos # Baso # Seg Neutrophils % Seg Neuts % (Manual) Lymphocytes % (Manual) Seg Neutrophils # Seg Neutrophils # Man Lymphocytes # (Manual) PT 20.6 H INR 1.65 H APTT 54.9 H Heparin Anti-Xa Level POC ABG pH POC ABG pCO2 POC ABG pO2 53 L Sodium Potassium Chloride Carbon Dioxide BUN Creatinine Glucose POC Glucose 133 H Hemoglobin A1c Lactic Acid Calcium Phosphorus AST Alkaline Phosphatase NT-Pro-B Natriuret Pep Total Protein Albumin Urine WBC (Auto) Crossmatch 10/12/18 10/12/18 10/12/18 00:30 03:56 04:25 WBC RBC Hgb Hct MCH RDW Plt Count Lymph % (Auto) [place] % (Auto) Lymph # [place] # Eos # Baso # Seg Neutrophils % Seg Neuts % (Manual) Lymphocytes % (Manual) Seg Neutrophils # Seg Neutrophils # Man Lymphocytes # (Manual) PT INR APTT Heparin Anti-Xa Level POC ABG pH 7.514 H POC ABG pCO2 31.2 L POC ABG pO2 Sodium Potassium Chloride Carbon Dioxide BUN Creatinine 1.6 H Glucose 287 H POC Glucose 353 H Hemoglobin A1c Lactic Acid Calcium 8.0 L Phosphorus AST Alkaline Phosphatase NT-Pro-B Natriuret Pep Total Protein Albumin Urine WBC (Auto) Crossmatch 10/12/18 10/12/18 10/12/18 04:49 12:13 17:53 WBC RBC Hgb Hct MCH RDW Plt Count Lymph % (Auto) [place] % (Auto) Lymph # [place] # Eos # Baso # Seg Neutrophils % Seg Neuts % (Manual) Lymphocytes % (Manual) Seg Neutrophils # Seg Neutrophils # Man Lymphocytes # (Manual) PT INR APTT Heparin Anti-Xa Level POC ABG pH POC ABG pCO2 POC ABG pO2 Sodium Potassium Chloride Carbon Dioxide BUN Creatinine Glucose POC Glucose 297 H 290 H 211 H Hemoglobin A1c Lactic Acid Calcium Phosphorus AST Alkaline Phosphatase NT-Pro-B Natriuret Pep Total Protein Albumin Urine WBC (Auto) Crossmatch 10/12/18 10/12/18 10/13/18 18:57 21:35 04:50 WBC 11.8 H RBC 3.08 L Hgb 7.4 L Hct 24.2 L MCH 24 L RDW 21.5 H Plt Count Lymph % (Auto) [place] % (Auto) Lymph # [place] # Eos # Baso # Seg Neutrophils % Seg Neuts % (Manual) Lymphocytes % (Manual) Seg Neutrophils # Seg Neutrophils # Man Lymphocytes # (Manual) PT INR APTT Heparin Anti-Xa Level 1.74 H POC ABG pH 7.497 H POC ABG pCO2 33.2 L POC ABG pO2 71 L Sodium Potassium Chloride Carbon Dioxide BUN Creatinine Glucose POC Glucose Hemoglobin A1c Lactic Acid Calcium Phosphorus AST Alkaline Phosphatase NT-Pro-B Natriuret Pep Total Protein Albumin Urine WBC (Auto) Crossmatch 10/13/18 10/13/18 10/13/18 05:25 05:25 05:37 WBC 12.1 H RBC 3.02 L Hgb 7.4 L Hct 23.7 L MCH 25 L RDW 21.0 H Plt Count Lymph % (Auto) 9.6 L [place] % (Auto) 10.0 H Lymph # [place] # 1.2 H Eos # Baso # Seg Neutrophils % 76.2 H Seg Neuts % (Manual) Lymphocytes % (Manual) Seg Neutrophils # 9.2 H Seg Neutrophils # Man Lymphocytes # (Manual) PT INR APTT Heparin Anti-Xa Level POC ABG pH POC ABG pCO2 POC ABG pO2 Sodium Potassium Chloride Carbon Dioxide BUN Creatinine 1.6 H Glucose 175 H POC Glucose 165 H Hemoglobin A1c Lactic Acid Calcium 8.3 L Phosphorus AST Alkaline Phosphatase NT-Pro-B Natriuret Pep Total Protein Albumin Urine WBC (Auto) Crossmatch 10/13/18 10/13/18 10/13/18 06:45 11:12 17:19 WBC RBC Hgb Hct MCH RDW Plt Count Lymph % (Auto) [place] % (Auto) Lymph # [place] # Eos # Baso # Seg Neutrophils % Seg Neuts % (Manual) Lymphocytes % (Manual) Seg Neutrophils # Seg Neutrophils # Man Lymphocytes # (Manual) PT 17.4 H INR 1.34 H APTT Heparin Anti-Xa Level POC ABG pH POC ABG pCO2 POC ABG pO2 Sodium Potassium Chloride Carbon Dioxide BUN Creatinine Glucose POC Glucose 223 H 129 H Hemoglobin A1c Lactic Acid Calcium Phosphorus AST Alkaline Phosphatase NT-Pro-B Natriuret Pep Total Protein Albumin Urine WBC (Auto) Crossmatch 10/13/18 10/14/18 10/14/18 23:39 05:01 06:14 WBC RBC Hgb Hct MCH RDW Plt Count Lymph % (Auto) [place] % (Auto) Lymph # [place] # Eos # Baso # Seg Neutrophils % Seg Neuts % (Manual) Lymphocytes % (Manual) Seg Neutrophils # Seg Neutrophils # Man Lymphocytes # (Manual) PT INR APTT Heparin Anti-Xa Level POC ABG pH POC ABG pCO2 POC ABG pO2 Sodium Potassium Chloride Carbon Dioxide BUN Creatinine 1.5 H Glucose 264 H POC Glucose 171 H 226 H Hemoglobin A1c Lactic Acid Calcium 8.0 L Phosphorus AST Alkaline Phosphatase NT-Pro-B Natriuret Pep Total Protein Albumin Urine WBC (Auto) Crossmatch 10/14/18 10/14/18 10/14/18 06:14 12:24 19:33 WBC RBC Hgb Hct MCH RDW Plt Count Lymph % (Auto) [place] % (Auto) Lymph # [place] # Eos # Baso # Seg Neutrophils % Seg Neuts % (Manual) Lymphocytes % (Manual) Seg Neutrophils # Seg Neutrophils # Man Lymphocytes # (Manual) PT 22.1 H INR 1.80 H APTT Heparin Anti-Xa Level POC ABG pH POC ABG pCO2 POC ABG pO2 Sodium Potassium Chloride Carbon Dioxide BUN Creatinine Glucose POC Glucose 403 H 164 H Hemoglobin A1c Lactic Acid Calcium Phosphorus AST Alkaline Phosphatase NT-Pro-B Natriuret Pep Total Protein Albumin Urine WBC (Auto) Crossmatch 10/15/18 10/15/18 10/15/18 00:29 06:03 07:00 WBC RBC Hgb Hct MCH RDW Plt Count Lymph % (Auto) [place] % (Auto) Lymph # [place] # Eos # Baso # Seg Neutrophils % Seg Neuts % (Manual) Lymphocytes % (Manual) Seg Neutrophils # Seg Neutrophils # Man Lymphocytes # (Manual) PT INR APTT Heparin Anti-Xa Level POC ABG pH POC ABG pCO2 POC ABG pO2 Sodium Potassium Chloride Carbon Dioxide BUN 20 H Creatinine 1.7 H Glucose 308 H POC Glucose 237 H 282 H Hemoglobin A1c Lactic Acid Calcium 7.6 L Phosphorus AST Alkaline Phosphatase NT-Pro-B Natriuret Pep Total Protein Albumin Urine WBC (Auto) Crossmatch 10/15/18 10/15/18 10/15/18 07:00 08:03 10:27 WBC RBC Hgb 5.8 L* Hct 18.5 L* MCH RDW Plt Count Lymph % (Auto) [place] % (Auto) Lymph # [place] # Eos # Baso # Seg Neutrophils % Seg Neuts % (Manual) Lymphocytes % (Manual) Seg Neutrophils # Seg Neutrophils # Man Lymphocytes # (Manual) PT 46.1 H INR 4.52 H APTT Heparin Anti-Xa Level 0.25 L POC ABG pH POC ABG pCO2 POC ABG pO2 Sodium Potassium Chloride Carbon Dioxide BUN Creatinine Glucose POC Glucose Hemoglobin A1c Lactic Acid Calcium Phosphorus AST Alkaline Phosphatase NT-Pro-B Natriuret Pep Total Protein Albumin Urine WBC (Auto) Crossmatch See Detail 10/15/18 10/15/18 10/16/18 14:03 15:30 10:18 WBC RBC Hgb Hct MCH RDW Plt Count Lymph % (Auto) [place] % (Auto) Lymph # [place] # Eos # Baso # Seg Neutrophils % Seg Neuts % (Manual) Lymphocytes % (Manual) Seg Neutrophils # Seg Neutrophils # Man Lymphocytes # (Manual) PT 53.8 H INR 5.48 H* APTT Heparin Anti-Xa Level POC ABG pH POC ABG pCO2 POC ABG pO2 Sodium Potassium Chloride Carbon Dioxide BUN Creatinine Glucose POC Glucose 336 H 259 H Hemoglobin A1c Lactic Acid Calcium Phosphorus AST Alkaline Phosphatase NT-Pro-B Natriuret Pep Total Protein Albumin Urine WBC (Auto) Crossmatch 10/16/18 10/16/18 10/16/18 10:18 10:18 13:03 WBC 14.8 H RBC 3.03 L Hgb 8.2 L Hct 24.9 L D MCH 27 L RDW 19.2 H Plt Count Lymph % (Auto) 5.7 L [place] % (Auto) Lymph # 0.8 L [place] # 1.1 H Eos # Baso # 0.2 H Seg Neutrophils % 84.3 H Seg Neuts % (Manual) Lymphocytes % (Manual) Seg Neutrophils # 12.5 H Seg Neutrophils # Man Lymphocytes # (Manual) PT INR APTT Heparin Anti-Xa Level POC ABG pH POC ABG pCO2 POC ABG pO2 Sodium Potassium Chloride Carbon Dioxide 20 L BUN 21 H Creatinine 1.5 H Glucose 326 H POC Glucose 329 H Hemoglobin A1c Lactic Acid Calcium 7.8 L Phosphorus AST Alkaline Phosphatase NT-Pro-B Natriuret Pep Total Protein Albumin Urine WBC (Auto) Crossmatch 10/16/18 10/17/18 10/17/18 13:27 00:35 05:00 WBC RBC Hgb Hct MCH RDW Plt Count Lymph % (Auto) [place] % (Auto) Lymph # [place] # Eos # Baso # Seg Neutrophils % Seg Neuts % (Manual) Lymphocytes % (Manual) Seg Neutrophils # Seg Neutrophils # Man Lymphocytes # (Manual) PT 55.4 H 60.2 H INR 5.68 H* 6.30 H* APTT Heparin Anti-Xa Level POC ABG pH POC ABG pCO2 POC ABG pO2 Sodium Potassium Chloride Carbon Dioxide BUN Creatinine Glucose POC Glucose 407 H Hemoglobin A1c Lactic Acid Calcium Phosphorus AST Alkaline Phosphatase NT-Pro-B Natriuret Pep Total Protein Albumin Urine WBC (Auto) Crossmatch 10/17/18 10/17/18 10/17/18 05:00 05:00 05:29 WBC 11.6 H RBC 2.99 L Hgb 8.0 L Hct 24.2 L MCH 27 L RDW 19.2 H Plt Count Lymph % (Auto) [place] % (Auto) Lymph # [place] # Eos # Baso # Seg Neutrophils % Seg Neuts % (Manual) 87.0 H Lymphocytes % (Manual) 9.0 L Seg Neutrophils # Seg Neutrophils # Man 10.1 H Lymphocytes # (Manual) 1.0 L PT INR APTT Heparin Anti-Xa Level POC ABG pH POC ABG pCO2 POC ABG pO2 Sodium Potassium 3.4 L D Chloride Carbon Dioxide BUN Creatinine 1.4 H Glucose 170 H POC Glucose 156 H Hemoglobin A1c Lactic Acid Calcium 7.6 L Phosphorus AST Alkaline Phosphatase NT-Pro-B Natriuret Pep Total Protein 5.4 L Albumin 2.2 L Urine WBC (Auto) Crossmatch 10/17/18 10/17/18 10/18/18 11:59 17:06 00:21 WBC RBC Hgb Hct MCH RDW Plt Count Lymph % (Auto) [place] % (Auto) Lymph # [place] # Eos # Baso # Seg Neutrophils % Seg Neuts % (Manual) Lymphocytes % (Manual) Seg Neutrophils # Seg Neutrophils # Man Lymphocytes # (Manual) PT INR APTT Heparin Anti-Xa Level POC ABG pH POC ABG pCO2 POC ABG pO2 Sodium Potassium Chloride Carbon Dioxide BUN Creatinine Glucose POC Glucose 389 H 151 H 355 H Hemoglobin A1c Lactic Acid Calcium Phosphorus AST Alkaline Phosphatase NT-Pro-B Natriuret Pep Total Protein Albumin Urine WBC (Auto) Crossmatch 10/18/18 10/18/18 10/18/18 04:17 04:17 04:17 WBC RBC 3.01 L Hgb 8.1 L Hct 24.6 L MCH 27 L RDW 19.7 H Plt Count Lymph % (Auto) 12.7 L [place] % (Auto) Lymph # [place] # Eos # Baso # Seg Neutrophils % 76.3 H Seg Neuts % (Manual) Lymphocytes % (Manual) Seg Neutrophils # 8.2 H Seg Neutrophils # Man Lymphocytes # (Manual) PT 39.5 H INR 3.72 H APTT Heparin Anti-Xa Level POC ABG pH POC ABG pCO2 POC ABG pO2 Sodium Potassium 3.5 L Chloride Carbon Dioxide BUN Creatinine 1.5 H Glucose 115 H POC Glucose Hemoglobin A1c Lactic Acid Calcium 7.4 L Phosphorus AST Alkaline Phosphatase NT-Pro-B Natriuret Pep Total Protein Albumin Urine WBC (Auto) Crossmatch 10/18/18 10/18/18 10/18/18 06:45 13:39 17:12 WBC RBC Hgb Hct MCH RDW Plt Count Lymph % (Auto) [place] % (Auto) Lymph # [place] # Eos # Baso # Seg Neutrophils % Seg Neuts % (Manual) Lymphocytes % (Manual) Seg Neutrophils # Seg Neutrophils # Man Lymphocytes # (Manual) PT INR APTT Heparin Anti-Xa Level POC ABG pH POC ABG pCO2 POC ABG pO2 Sodium Potassium Chloride Carbon Dioxide BUN Creatinine Glucose POC Glucose 170 H 415 H 377 H Hemoglobin A1c Lactic Acid Calcium Phosphorus AST Alkaline Phosphatase NT-Pro-B Natriuret Pep Total Protein Albumin Urine WBC (Auto) Crossmatch 10/19/18 10/19/18 10/19/18 00:48 05:35 05:52 WBC RBC 2.84 L Hgb 7.7 L Hct 23.2 L MCH 27 L RDW 19.8 H Plt Count Lymph % (Auto) 11.0 L [place] % (Auto) Lymph # 1.1 L [place] # Eos # Baso # Seg Neutrophils % 78.5 H Seg Neuts % (Manual) Lymphocytes % (Manual) Seg Neutrophils # 8.1 H Seg Neutrophils # Man Lymphocytes # (Manual) PT INR APTT Heparin Anti-Xa Level POC ABG pH POC ABG pCO2 POC ABG pO2 Sodium Potassium Chloride Carbon Dioxide BUN Creatinine Glucose POC Glucose 308 H 116 H Hemoglobin A1c Lactic Acid Calcium Phosphorus AST Alkaline Phosphatase NT-Pro-B Natriuret Pep Total Protein Albumin Urine WBC (Auto) Crossmatch 10/19/18 10/19/18 10/19/18 05:52 07:12 09:41 WBC RBC Hgb 8.1 L Hct 24.6 L MCH RDW Plt Count Lymph % (Auto) [place] % (Auto) Lymph # [place] # Eos # Baso # Seg Neutrophils % Seg Neuts % (Manual) Lymphocytes % (Manual) Seg Neutrophils # Seg Neutrophils # Man Lymphocytes # (Manual) PT 18.1 H INR 1.40 H APTT Heparin Anti-Xa Level POC ABG pH POC ABG pCO2 POC ABG pO2 Sodium Potassium Chloride Carbon Dioxide BUN 21 H Creatinine 1.6 H Glucose 128 H POC Glucose Hemoglobin A1c Lactic Acid Calcium 7.7 L Phosphorus AST Alkaline Phosphatase NT-Pro-B Natriuret Pep Total Protein Albumin Urine WBC (Auto) Crossmatch 10/19/18 10/19/18 10/19/18 09:41 11:46 12:26 WBC RBC Hgb Hct MCH RDW Plt Count Lymph % (Auto) [place] % (Auto) Lymph # [place] # Eos # Baso # Seg Neutrophils % Seg Neuts % (Manual) Lymphocytes % (Manual) Seg Neutrophils # Seg Neutrophils # Man Lymphocytes # (Manual) PT 17.7 H INR 1.36 H APTT Heparin Anti-Xa Level 0.19 L POC ABG pH POC ABG pCO2 POC ABG pO2 Sodium Potassium Chloride Carbon Dioxide BUN Creatinine Glucose POC Glucose 212 H Hemoglobin A1c Lactic Acid Calcium Phosphorus AST Alkaline Phosphatase NT-Pro-B Natriuret Pep Total Protein Albumin Urine WBC (Auto) Crossmatch 10/19/18 10/19/18 10/19/18 16:12 19:56 22:09 WBC RBC Hgb Hct MCH RDW Plt Count Lymph % (Auto) [place] % (Auto) Lymph # [place] # Eos # Baso # Seg Neutrophils % Seg Neuts % (Manual) Lymphocytes % (Manual) Seg Neutrophils # Seg Neutrophils # Man Lymphocytes # (Manual) PT INR APTT Heparin Anti-Xa Level POC ABG pH 7.458 H POC ABG pCO2 POC ABG pO2 63 L Sodium Potassium Chloride Carbon Dioxide BUN Creatinine Glucose POC Glucose 260 H 216 H Hemoglobin A1c Lactic Acid Calcium Phosphorus AST Alkaline Phosphatase NT-Pro-B Natriuret Pep Total Protein Albumin Urine WBC (Auto) Crossmatch 10/20/18 10/20/18 10/20/18 03:00 03:00 03:00 WBC 14.8 H RBC 2.81 L Hgb 7.5 L Hct 23.1 L MCH 27 L RDW 20.0 H Plt Count Lymph % (Auto) 11.5 L [place] % (Auto) Lymph # [place] # 0.9 H Eos # Baso # Seg Neutrophils % 79.7 H Seg Neuts % (Manual) Lymphocytes % (Manual) Seg Neutrophils # 11.8 H Seg Neutrophils # Man Lymphocytes # (Manual) PT 16.9 H INR 1.29 H APTT Heparin Anti-Xa Level 0.24 L POC ABG pH POC ABG pCO2 POC ABG pO2 Sodium Potassium Chloride 97.8 L Carbon Dioxide BUN 20 H Creatinine 1.5 H Glucose 206 H POC Glucose Hemoglobin A1c Lactic Acid Calcium 7.8 L Phosphorus AST Alkaline Phosphatase NT-Pro-B Natriuret Pep Total Protein Albumin Urine WBC (Auto) Crossmatch 10/20/18 10/20/18 10/20/18 06:59 10:20 10:59 WBC RBC Hgb Hct MCH RDW Plt Count Lymph % (Auto) [place] % (Auto) Lymph # [place] # Eos # Baso # Seg Neutrophils % Seg Neuts % (Manual) Lymphocytes % (Manual) Seg Neutrophils # Seg Neutrophils # Man Lymphocytes # (Manual) PT 15.5 H INR 1.16 H APTT Heparin Anti-Xa Level < 0.10 L POC ABG pH POC ABG pCO2 POC ABG pO2 Sodium Potassium Chloride Carbon Dioxide BUN Creatinine Glucose POC Glucose 348 H 227 H Hemoglobin A1c Lactic Acid Calcium Phosphorus AST Alkaline Phosphatase NT-Pro-B Natriuret Pep Total Protein Albumin Urine WBC (Auto) Crossmatch 10/20/18 10/20/18 10/21/18 16:15 17:14 00:53 WBC RBC Hgb Hct MCH RDW Plt Count Lymph % (Auto) [place] % (Auto) Lymph # [place] # Eos # Baso # Seg Neutrophils % Seg Neuts % (Manual) Lymphocytes % (Manual) Seg Neutrophils # Seg Neutrophils # Man Lymphocytes # (Manual) PT INR APTT Heparin Anti-Xa Level 0.24 L POC ABG pH POC ABG pCO2 POC ABG pO2 Sodium Potassium Chloride Carbon Dioxide BUN Creatinine Glucose POC Glucose 279 H 136 H Hemoglobin A1c Lactic Acid Calcium Phosphorus AST Alkaline Phosphatase NT-Pro-B Natriuret Pep Total Protein Albumin Urine WBC (Auto) Crossmatch 10/21/18 10/21/18 10/21/18 05:45 05:45 05:45 WBC 15.8 H RBC 2.79 L Hgb 7.5 L Hct 22.9 L MCH 27 L RDW 19.8 H Plt Count Lymph % (Auto) 7.2 L [place] % (Auto) Lymph # 1.1 L [place] # Eos # Baso # Seg Neutrophils % 85.7 H Seg Neuts % (Manual) Lymphocytes % (Manual) Seg Neutrophils # 13.5 H Seg Neutrophils # Man Lymphocytes # (Manual) PT 16.9 H INR 1.29 H APTT Heparin Anti-Xa Level POC ABG pH POC ABG pCO2 POC ABG pO2 Sodium Potassium Chloride Carbon Dioxide BUN 18 H Creatinine 1.4 H Glucose 339 H POC Glucose Hemoglobin A1c Lactic Acid Calcium 8.3 L Phosphorus AST Alkaline Phosphatase NT-Pro-B Natriuret Pep Total Protein Albumin Urine WBC (Auto) Crossmatch 10/21/18 10/21/18 10/21/18 08:00 10:13 11:00 WBC RBC Hgb Hct MCH RDW Plt Count Lymph % (Auto) [place] % (Auto) Lymph # [place] # Eos # Baso # Seg Neutrophils % Seg Neuts % (Manual) Lymphocytes % (Manual) Seg Neutrophils # Seg Neutrophils # Man Lymphocytes # (Manual) PT INR APTT Heparin Anti-Xa Level POC ABG pH POC ABG pCO2 POC ABG pO2 Sodium Potassium Chloride Carbon Dioxide BUN Creatinine Glucose POC Glucose 398 H 295 H Hemoglobin A1c Lactic Acid Calcium Phosphorus AST Alkaline Phosphatase NT-Pro-B Natriuret Pep Total Protein Albumin Urine WBC (Auto) 125.0 H Crossmatch 10/21/18 10/21/18 10/21/18 11:18 17:20 17:52 WBC RBC Hgb Hct MCH RDW Plt Count Lymph % (Auto) [place] % (Auto) Lymph # [place] # Eos # Baso # Seg Neutrophils % Seg Neuts % (Manual) Lymphocytes % (Manual) Seg Neutrophils # Seg Neutrophils # Man Lymphocytes # (Manual) PT 17.2 H INR 1.32 H APTT 40.0 H Heparin Anti-Xa Level POC ABG pH POC ABG pCO2 POC ABG pO2 Sodium Potassium Chloride Carbon Dioxide BUN Creatinine Glucose POC Glucose 235 H 271 H Hemoglobin A1c Lactic Acid Calcium Phosphorus AST Alkaline Phosphatase NT-Pro-B Natriuret Pep Total Protein Albumin Urine WBC (Auto) Crossmatch 10/21/18 10/22/18 10/22/18 23:41 00:47 04:39 WBC 16.1 H RBC 2.69 L Hgb 6.7 L 7.3 L Hct 19.8 L* 22.3 L MCH 27 L RDW 20.4 H Plt Count Lymph % (Auto) 6.9 L [place] % (Auto) Lymph # 1.1 L [place] # 1.0 H Eos # Baso # Seg Neutrophils % 85.3 H Seg Neuts % (Manual) Lymphocytes % (Manual) Seg Neutrophils # 13.8 H Seg Neutrophils # Man Lymphocytes # (Manual) PT INR APTT Heparin Anti-Xa Level POC ABG pH POC ABG pCO2 POC ABG pO2 Sodium Potassium Chloride Carbon Dioxide BUN Creatinine Glucose POC Glucose 157 H Hemoglobin A1c Lactic Acid Calcium Phosphorus AST Alkaline Phosphatase NT-Pro-B Natriuret Pep Total Protein Albumin Urine WBC (Auto) Crossmatch 10/22/18 10/22/18 10/22/18 04:39 04:39 04:39 WBC RBC Hgb Hct MCH RDW Plt Count Lymph % (Auto) [place] % (Auto) Lymph # [place] # Eos # Baso # Seg Neutrophils % Seg Neuts % (Manual) Lymphocytes % (Manual) Seg Neutrophils # Seg Neutrophils # Man Lymphocytes # (Manual) PT 20.3 H INR 1.62 H APTT Heparin Anti-Xa Level 0.12 L POC ABG pH POC ABG pCO2 POC ABG pO2 Sodium Potassium Chloride Carbon Dioxide BUN 20 H Creatinine 1.7 H Glucose 255 H POC Glucose Hemoglobin A1c Lactic Acid Calcium 8.1 L Phosphorus AST Alkaline Phosphatase NT-Pro-B Natriuret Pep Total Protein Albumin Urine WBC (Auto) Crossmatch See Detail 10/22/18 10/22/18 10/22/18 05:09 11:20 11:20 WBC RBC Hgb 7.4 L Hct 21.9 L MCH RDW Plt Count 457 H Lymph % (Auto) [place] % (Auto) Lymph # [place] # Eos # Baso # Seg Neutrophils % Seg Neuts % (Manual) Lymphocytes % (Manual) Seg Neutrophils # Seg Neutrophils # Man Lymphocytes # (Manual) PT 20.8 H INR 1.67 H APTT 71.0 H* Heparin Anti-Xa Level 0.20 L POC ABG pH POC ABG pCO2 POC ABG pO2 Sodium Potassium Chloride Carbon Dioxide BUN Creatinine Glucose POC Glucose 297 H Hemoglobin A1c Lactic Acid Calcium Phosphorus AST Alkaline Phosphatase NT-Pro-B Natriuret Pep Total Protein Albumin Urine WBC (Auto) Crossmatch 10/22/18 10/22/18 10/22/18 12:09 16:51 17:11 WBC RBC Hgb Hct MCH RDW Plt Count Lymph % (Auto) [place] % (Auto) Lymph # [place] # Eos # Baso # Seg Neutrophils % Seg Neuts % (Manual) Lymphocytes % (Manual) Seg Neutrophils # Seg Neutrophils # Man Lymphocytes # (Manual) PT INR APTT Heparin Anti-Xa Level POC ABG pH POC ABG pCO2 POC ABG pO2 Sodium Potassium Chloride Carbon Dioxide BUN Creatinine Glucose 115 H POC Glucose 125 H < 40 L Hemoglobin A1c Lactic Acid Calcium Phosphorus AST Alkaline Phosphatase NT-Pro-B Natriuret Pep Total Protein Albumin Urine WBC (Auto) Crossmatch 10/22/18 10/23/18 10/23/18 17:13 00:08 06:19 WBC RBC Hgb Hct MCH RDW Plt Count Lymph % (Auto) [place] % (Auto) Lymph # [place] # Eos # Baso # Seg Neutrophils % Seg Neuts % (Manual) Lymphocytes % (Manual) Seg Neutrophils # Seg Neutrophils # Man Lymphocytes # (Manual) PT INR APTT Heparin Anti-Xa Level POC ABG pH POC ABG pCO2 POC ABG pO2 Sodium Potassium Chloride Carbon Dioxide BUN Creatinine Glucose POC Glucose 126 H 192 H 249 H Hemoglobin A1c Lactic Acid Calcium Phosphorus AST Alkaline Phosphatase NT-Pro-B Natriuret Pep Total Protein Albumin Urine WBC (Auto) Crossmatch 10/23/18 10/23/18 10/23/18 07:21 07:21 07:21 WBC 14.4 H RBC 3.29 L Hgb 9.2 L Hct 27.6 L MCH RDW 20.5 H Plt Count 505 H Lymph % (Auto) 8.1 L [place] % (Auto) Lymph # [place] # 1.0 H Eos # 0.6 H Baso # Seg Neutrophils % 80.0 H Seg Neuts % (Manual) Lymphocytes % (Manual) Seg Neutrophils # 11.5 H Seg Neutrophils # Man Lymphocytes # (Manual) PT 21.6 H INR 1.75 H APTT Heparin Anti-Xa Level POC ABG pH POC ABG pCO2 POC ABG pO2 Sodium Potassium Chloride Carbon Dioxide BUN 18 H Creatinine 1.5 H Glucose 308 H POC Glucose Hemoglobin A1c Lactic Acid Calcium Phosphorus AST Alkaline Phosphatase NT-Pro-B Natriuret Pep Total Protein Albumin Urine WBC (Auto) Crossmatch 10/23/18 10/23/18 10/23/18 10:34 11:56 17:07 WBC RBC Hgb Hct MCH RDW Plt Count Lymph % (Auto) [place] % (Auto) Lymph # [place] # Eos # Baso # Seg Neutrophils % Seg Neuts % (Manual) Lymphocytes % (Manual) Seg Neutrophils # Seg Neutrophils # Man Lymphocytes # (Manual) PT INR APTT Heparin Anti-Xa Level POC ABG pH POC ABG pCO2 POC ABG pO2 Sodium Potassium Chloride Carbon Dioxide BUN Creatinine Glucose POC Glucose > 500 H 440 H 387 H Hemoglobin A1c Lactic Acid Calcium Phosphorus AST Alkaline Phosphatase NT-Pro-B Natriuret Pep Total Protein Albumin Urine WBC (Auto) Crossmatch 10/23/18 10/24/18 10/24/18 23:44 06:18 06:39 WBC RBC Hgb 7.9 L Hct 24.3 L MCH RDW Plt Count 522 H Lymph % (Auto) [place] % (Auto) Lymph # [place] # Eos # Baso # Seg Neutrophils % Seg Neuts % (Manual) Lymphocytes % (Manual) Seg Neutrophils # Seg Neutrophils # Man Lymphocytes # (Manual) PT INR APTT Heparin Anti-Xa Level POC ABG pH POC ABG pCO2 POC ABG pO2 Sodium Potassium Chloride Carbon Dioxide BUN Creatinine Glucose POC Glucose 172 H 154 H Hemoglobin A1c Lactic Acid Calcium Phosphorus AST Alkaline Phosphatase NT-Pro-B Natriuret Pep Total Protein Albumin Urine WBC (Auto) Crossmatch 10/24/18 10/24/18 10/24/18 08:05 11:12 18:50 WBC RBC Hgb Hct MCH RDW Plt Count Lymph % (Auto) [place] % (Auto) Lymph # [place] # Eos # Baso # Seg Neutrophils % Seg Neuts % (Manual) Lymphocytes % (Manual) Seg Neutrophils # Seg Neutrophils # Man Lymphocytes # (Manual) PT 20.5 H INR 1.64 H APTT Heparin Anti-Xa Level < 0.10 L POC ABG pH POC ABG pCO2 POC ABG pO2 Sodium Potassium Chloride Carbon Dioxide BUN Creatinine Glucose POC Glucose 203 H Hemoglobin A1c Lactic Acid Calcium Phosphorus AST Alkaline Phosphatase NT-Pro-B Natriuret Pep Total Protein Albumin Urine WBC (Auto) Crossmatch 10/25/18 10/25/18 10/25/18 01:29 06:00 06:00 WBC RBC Hgb 7.8 L Hct 23.9 L MCH RDW Plt Count 569 H Lymph % (Auto) [place] % (Auto) Lymph # [place] # Eos # Baso # Seg Neutrophils % Seg Neuts % (Manual) Lymphocytes % (Manual) Seg Neutrophils # Seg Neutrophils # Man Lymphocytes # (Manual) PT 15.6 H INR 1.17 H APTT Heparin Anti-Xa Level POC ABG pH POC ABG pCO2 POC ABG pO2 Sodium Potassium Chloride Carbon Dioxide BUN Creatinine Glucose POC Glucose 146 H Hemoglobin A1c Lactic Acid Calcium Phosphorus AST Alkaline Phosphatase NT-Pro-B Natriuret Pep Total Protein Albumin Urine WBC (Auto) Crossmatch 10/25/18 10/25/18 10/25/18 06:00 06:11 12:05 WBC RBC Hgb Hct MCH RDW Plt Count Lymph % (Auto) [place] % (Auto) Lymph # [place] # Eos # Baso # Seg Neutrophils % Seg Neuts % (Manual) Lymphocytes % (Manual) Seg Neutrophils # Seg Neutrophils # Man Lymphocytes # (Manual) PT INR APTT Heparin Anti-Xa Level 0.14 L POC ABG pH POC ABG pCO2 POC ABG pO2 Sodium Potassium Chloride Carbon Dioxide BUN Creatinine Glucose POC Glucose 246 H 283 H Hemoglobin A1c Lactic Acid Calcium Phosphorus AST Alkaline Phosphatase NT-Pro-B Natriuret Pep Total Protein Albumin Urine WBC (Auto) Crossmatch 10/25/18 10/25/18 10/26/18 17:53 21:20 04:59 WBC RBC Hgb 8.0 L Hct 24.4 L MCH RDW Plt Count Lymph % (Auto) [place] % (Auto) Lymph # [place] # Eos # Baso # Seg Neutrophils % Seg Neuts % (Manual) Lymphocytes % (Manual) Seg Neutrophils # Seg Neutrophils # Man Lymphocytes # (Manual) PT INR APTT Heparin Anti-Xa Level POC ABG pH POC ABG pCO2 POC ABG pO2 Sodium Potassium Chloride Carbon Dioxide BUN Creatinine Glucose POC Glucose 298 H 336 H Hemoglobin A1c Lactic Acid Calcium Phosphorus AST Alkaline Phosphatase NT-Pro-B Natriuret Pep Total Protein Albumin Urine WBC (Auto) Crossmatch 10/26/18 10/26/18 10/26/18 04:59 07:48 12:33 WBC RBC Hgb Hct MCH RDW Plt Count Lymph % (Auto) [place] % (Auto) Lymph # [place] # Eos # Baso # Seg Neutrophils % Seg Neuts % (Manual) Lymphocytes % (Manual) Seg Neutrophils # Seg Neutrophils # Man Lymphocytes # (Manual) PT INR APTT Heparin Anti-Xa Level 0.21 L 0.19 L POC ABG pH POC ABG pCO2 POC ABG pO2 Sodium Potassium Chloride Carbon Dioxide BUN Creatinine Glucose POC Glucose 339 H Hemoglobin A1c Lactic Acid Calcium Phosphorus AST Alkaline Phosphatase NT-Pro-B Natriuret Pep Total Protein Albumin Urine WBC (Auto) Crossmatch 10/26/18 10/26/18 10/26/18 15:49 15:54 17:36 WBC RBC Hgb Hct MCH RDW Plt Count Lymph % (Auto) [place] % (Auto) Lymph # [place] # Eos # Baso # Seg Neutrophils % Seg Neuts % (Manual) Lymphocytes % (Manual) Seg Neutrophils # Seg Neutrophils # Man Lymphocytes # (Manual) PT INR APTT Heparin Anti-Xa Level POC ABG pH POC ABG pCO2 POC ABG pO2 Sodium Potassium Chloride Carbon Dioxide BUN Creatinine Glucose 49 L POC Glucose < 40 L 226 H Hemoglobin A1c Lactic Acid Calcium Phosphorus AST Alkaline Phosphatase NT-Pro-B Natriuret Pep Total Protein Albumin Urine WBC (Auto) Crossmatch 10/26/18 10/26/18 10/27/18 19:42 21:08 03:00 WBC RBC Hgb 7.9 L Hct 23.8 L MCH RDW Plt Count 629 H Lymph % (Auto) [place] % (Auto) Lymph # [place] # Eos # Baso # Seg Neutrophils % Seg Neuts % (Manual) Lymphocytes % (Manual) Seg Neutrophils # Seg Neutrophils # Man Lymphocytes # (Manual) PT INR APTT Heparin Anti-Xa Level 0.19 L POC ABG pH POC ABG pCO2 POC ABG pO2 Sodium Potassium Chloride Carbon Dioxide BUN Creatinine Glucose POC Glucose 234 H Hemoglobin A1c Lactic Acid Calcium Phosphorus AST Alkaline Phosphatase NT-Pro-B Natriuret Pep Total Protein Albumin Urine WBC (Auto) Crossmatch 05/10/27/18 10/27/18 08:16 12:30 16:44 WBC RBC Hgb Hct MCH RDW Plt Count Lymph % (Auto) [place] % (Auto) Lymph # [place] # Eos # Baso # Seg Neutrophils % Seg Neuts % (Manual) Lymphocytes % (Manual) Seg Neutrophils # Seg Neutrophils # Man Lymphocytes # (Manual) PT INR APTT Heparin Anti-Xa Level POC ABG pH POC ABG pCO2 POC ABG pO2 Sodium Potassium Chloride Carbon Dioxide BUN Creatinine Glucose POC Glucose 181 H 287 H 339 H Hemoglobin A1c Lactic Acid Calcium Phosphorus AST Alkaline Phosphatase NT-Pro-B Natriuret Pep Total Protein Albumin Urine WBC (Auto) Crossmatch 10/27/18 10/28/18 10/28/18 21:09 03:57 03:57 WBC RBC Hgb 7.7 L Hct 23.5 L MCH RDW Plt Count Lymph % (Auto) [place] % (Auto) Lymph # [place] # Eos # Baso # Seg Neutrophils % Seg Neuts % (Manual) Lymphocytes % (Manual) Seg Neutrophils # Seg Neutrophils # Man Lymphocytes # (Manual) PT 15.1 H INR APTT Heparin Anti-Xa Level 0.29 L POC ABG pH POC ABG pCO2 POC ABG pO2 Sodium Potassium Chloride Carbon Dioxide BUN Creatinine Glucose POC Glucose 120 H Hemoglobin A1c Lactic Acid Calcium Phosphorus AST Alkaline Phosphatase NT-Pro-B Natriuret Pep Total Protein Albumin Urine WBC (Auto) Crossmatch 10/28/18 08:20 WBC RBC Hgb Hct MCH RDW Plt Count Lymph % (Auto) [place] % (Auto) Lymph # [place] # Eos # Baso # Seg Neutrophils % Seg Neuts % (Manual) Lymphocytes % (Manual) Seg Neutrophils # Seg Neutrophils # Man Lymphocytes # (Manual) PT INR APTT Heparin Anti-Xa Level POC ABG pH POC ABG pCO2 POC ABG pO2 Sodium Potassium Chloride Carbon Dioxide BUN Creatinine Glucose POC Glucose 308 H Hemoglobin A1c Lactic Acid Calcium Phosphorus AST Alkaline Phosphatase NT-Pro-B Natriuret Pep Total Protein Albumin Urine WBC (Auto) Crossmatch Allied health notes reviewed: nursing
--- NOTE | 2018-10-28 11:02 | Progress Note ---
Assessment and Plan Assessment and plan: 48 year old woman with history of coronary artery disease, status post cabbage, diabetes, hypertension who was brought to the emergency room for altered mental status. She was found to have hypoglycemia, she was also having convulsions at the time of admission. The patient was intubated, sp dextrose she was put on the ventilator she was found to have pneumonia and CHF flare and started on antibiotics. patient has history of MV replacement and was on anticoagulation. Pneumonia, severe sepsis - Patient was on IV antibiotics and completed on 10/13 per ID Acute hypoxic respiratory failure on MV >96 hrs Was intubated and on mechanical ventilation - patient was extubated on 10/13 -Weaned to room air on 10/19, status epilepticus; Seizures when most likely due to hypoglycemia -Treated with dextrose - neurology consult appreciated Acute on chronic systolic CHF EF 40%, dilated ventricles -cardiology consult appreciated, sp lasix, now on PO lasix History of [facility] mitral valve replacement/hypercoaguable state/coagulopathy due to warfarin INR subtherapeutic, on heparin ggt INR is 1.17 and pharmacy to consult Severe anemia sp-transfusion, Gi workup showed neg egd and c scope, outpatient pill camera recommended Currently stable 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 INR is 1.12. History Interval history: Patient was seen and evaluated this morning, patient was extubated on 10/12/18. Patient was alert and oriented. She said she is feeling better. Hospitalist Physical - Physical exam Narrative exam: Patient is not in cardiopulmonary distress. The patient appeared well nourished and normally developed. Vital signs as documented. Head exam is unremarkable. No scleral icterus . Neck is without jugular venous distension, thyromegaly, or carotid bruits. Lungs are clear to auscultation. Cardiac exam reveals regular rate and Rhythm. Abdominal exam reveals normal bowel sounds Extremities are nonedematous. MANAGER QUALITY IMPROVEMENT: patient was admitted and oriented. - Constitutional Vitals: Temp Pulse Resp BP Pulse Ox 98.2 F 91 H 18 150/96 97 10/28/18 06:07 10/28/18 09:19 10/28/18 06:07 10/28/18 09:19 10/28/18 06:07 General appearance: Present: other (intubated, eyes open, no purposeful response to commands) Results - Labs CBC & Chem 7: 10/28/18 03:57 10/26/18 15:54 Labs: Laboratory Last Values WBC 14.4 K/mm3 (4.5-11.0) H 10/23/18 07:21 RBC 3.29 M/mm3 (3.65-5.03) L 10/23/18 07:21 Hgb 7.7 gm/dl (10.1-14.3) L 10/28/18 03:57 Hct 23.5 % (30.3-42.9) L 10/28/18 03:57 MCV 84 fl (79-97) 10/23/18 07:21 MCH 28 pg (28-32) 10/23/18 07:21 MCHC 33 % (30-34) 10/23/18 07:21 RDW 20.5 % (13.2-15.2) H 10/23/18 07:21 Plt Count 629 K/mm3 (140-440) H 10/27/18 03:00 Lymph % (Auto) 8.1 % (13.4-35.0) L 10/23/18 07:21 [place] % (Auto) 7.3 % (0.0-7.3) 10/23/18 07:21 Eos % (Auto) 3.8 % (0.0-4.3) 10/23/18 07:21 Baso % (Auto) 0.8 % (0.0-1.8) 10/23/18 07:21 Lymph # 1.2 K/mm3 (1.2-5.4) 10/23/18 07:21 [place] # 1.0 K/mm3 (0.0-0.8) H 10/23/18 07:21 Eos # 0.6 K/mm3 (0.0-0.4) H 10/23/18 07:21 Baso # 0.1 K/mm3 (0.0-0.1) 10/23/18 07:21 Add Manual Diff Complete 10/17/18 05:00 Total Counted 100 10/17/18 05:00 Seg Neutrophils % 80.0 % (40.0-70.0) H 10/23/18 07:21 Seg Neuts % (Manual) 87.0 % (40.0-70.0) H 10/17/18 05:00 0 % 10/17/18 05:00 9.0 % (13.4-35.0) L 10/17/18 05:00 Reactive Lymphs % (Man) 0 % 10/17/18 05:00 2.0 % (0.0-7.3) 10/17/18 05:00 2.0 % (0.0-4.3) 10/17/18 05:00 0 % (0.0-1.8) 10/17/18 05:00 0 % 10/17/18 05:00 0 % 10/17/18 05:00 0 % 10/17/18 05:00 0 % 10/17/18 05:00 Nucleated RBC % Not Reportable 10/17/18 05:00 Seg Neutrophils # 11.5 K/mm3 (1.8-7.7) H 10/23/18 07:21 Seg Neutrophils # Man 10.1 K/mm3 (1.8-7.7) H 10/17/18 05:00 Band Neutrophils # 0.0 K/mm3 10/17/18 05:00 1.0 K/mm3 (1.2-5.4) L 10/17/18 05:00 Abs React Lymphs (Man) 0.0 K/mm3 10/17/18 05:00 0.2 K/mm3 (0.0-0.8) 10/17/18 05:00 0.2 K/mm3 (0.0-0.4) 10/17/18 05:00 0.0 K/mm3 (0.0-0.1) 10/17/18 05:00 0.0 K/mm3 10/17/18 05:00 0.0 K/mm3 10/17/18 05:00 0.0 K/mm3 10/17/18 05:00 Blast Cells # 0.0 K/mm3 10/17/18 05:00 WBC Morphology Not Reportable 10/17/18 05:00 Hypersegmented Neuts Not Reportable 10/17/18 05:00 Hyposegmented Neuts Not Reportable 10/17/18 05:00 Hypogranular Neuts Not Reportable 10/17/18 05:00 Not Reportable 10/17/18 05:00 Not Reportable 10/17/18 05:00 Not Reportable 10/17/18 05:00 Not Reportable 10/17/18 05:00 Not Reportable 10/17/18 05:00 Not Reportable 10/17/18 05:00 Consistent w auto 10/17/18 05:00 Not Reportable 10/17/18 05:00 Plt Clumps, EDTA Not Reportable 10/17/18 05:00 Not Reportable 10/17/18 05:00 Not Reportable 10/17/18 05:00 Not Reportable 10/17/18 05:00 Plt Morphology Comment Not Reportable 10/17/18 05:00 RBC Morphology Not Reportable 10/17/18 05:00 Dimorphic RBCs Not Reportable 10/17/18 05:00 Not Reportable 10/17/18 05:00 1+ 10/17/18 05:00 Few 10/17/18 05:00 1+ 10/17/18 05:00 Not Reportable 10/17/18 05:00 Rare 10/17/18 05:00 Not Reportable 10/17/18 05:00 Not Reportable 10/17/18 05:00 Not Reportable 10/17/18 05:00 Not Reportable 10/17/18 05:00 Not Reportable 10/17/18 05:00 Not Reportable 10/17/18 05:00 Not Reportable 10/17/18 05:00 Not Reportable 10/17/18 05:00 Not Reportable 10/17/18 05:00 Not Reportable 10/17/18 05:00 Not Reportable 10/17/18 05:00 Not Reportable 10/17/18 05:00 Not Reportable 10/17/18 05:00 Acanthocytes (Spur) Not Reportable 10/17/18 05:00 Rouleaux Not Reportable 10/17/18 05:00 Not Reportable 10/17/18 05:00 Not Reportable 10/17/18 05:00 Not Reportable 10/17/18 05:00 Not Reportable 10/17/18 05:00 Hem Pathologist Commnt No 10/17/18 05:00 PT 15.1 Sec. (12.2-14.9) H 10/28/18 03:57 INR 1.12 (0.87-1.13) 10/28/18 03:57 APTT 71.0 Sec. (24.2-36.6) H* 10/22/18 11:20 Heparin Anti-Xa Level 0.29 U.I./ml (0.3-0.7) L 10/28/18 03:57 POC ABG pH 7.458 (7.35-7.45) H 10/19/18 19:56 POC ABG pCO2 37.9 (35-45) 10/19/18 19:56 POC ABG pO2 63 (80-105) L 10/19/18 19:56 POC ABG HCO3 26.8 (22-26 mml/L) 10/19/18 19:56 POC ABG Total CO2 28 (23-27mmol/L) 10/19/18 19:56 POC ABG O2 Sat 93 10/19/18 19:56 POC ABG Base Excess 3 ((-2) - (+3)mmol/L) 10/19/18 19:56 2 % 10/19/18 19:56 Sodium 137 mmol/L (137-145) 10/23/18 07:21 Potassium 4.0 mmol/L (3.6-5.0) 10/23/18 07:21 Chloride 100.4 mmol/L (98-107) 10/23/18 07:21 Carbon Dioxide 23 mmol/L (22-30) 10/23/18 07:21 18 mmol/L 10/23/18 07:21 BUN 18 mg/dL (7-17) H 10/23/18 07:21 1.5 mg/dL (0.7-1.2) H 10/23/18 07:21 Estimated GFR 45 ml/min 10/23/18 07:21 12 % 10/23/18 07:21 Glucose 49 mg/dL (65-100) L 10/26/18 15:54 POC Glucose 308 (70-105) H 10/28/18 08:20 10.2 % (4-6) H 10/07/18 22:08 Lactic Acid 1.50 mmol/L (0.7-2.0) 10/08/18 17:09 Calcium 8.4 mg/dL (8.4-10.2) 10/23/18 07:21 Phosphorus 7.40 mg/dL (2.5-4.5) H 10/07/18 22:08 Magnesium 1.70 mg/dL (1.7-2.3) 10/18/18 20:20 0.60 mg/dL (0.1-1.2) 10/17/18 05:00 < 0.2 mg/dL (0-0.2) 10/17/18 05:00 0.4 mg/dL 10/17/18 05:00 AST 14 units/L (5-40) 10/17/18 05:00 ALT 8 units/L (7-56) 10/17/18 05:00 104 units/L (35-129) 10/17/18 05:00 40.0 umol/L (25-60) 10/07/18 02:43 < 0.010 ng/mL (0.00-0.029) 10/07/18 08:59 0.20 mg/dL (0.00-1.30) 10/07/18 14:55 NT-Pro-B Natriuret Pep 2865 pg/mL (0-450) H 10/09/18 03:20 5.4 g/dL (6.3-8.2) L 10/17/18 05:00 2.2 g/dL (3.9-5) L 10/17/18 05:00 0.7 % 10/17/18 05:00 Fay (Yellow) 10/21/18 11:00 Cloudy (Clear) 10/21/18 11:00 5.0 (5.0-7.0) 10/21/18 11:00 Ur Specific [place] 1.022 (1.003-1.030) 10/21/18 11:00 >500 mg/dL (Negative) 10/21/18 11:00 50 mg/dL (Negative) 10/21/18 11:00 Neg mg/dL (Negative) 10/21/18 11:00 Lg (Negative) 10/21/18 11:00 Neg (Negative) 10/21/18 11:00 Neg (Negative) 10/21/18 11:00 < 2.0 mg/dL (<2.0) 10/21/18 11:00 Ur Leukocyte Esterase Mod (Negative) 10/21/18 11:00 125.0 /HPF (0.0-6.0) H 10/21/18 11:00 131.0 /HPF (0.0-6.0) 10/21/18 11:00 U Epithel Cells (Auto) 2.0 /HPF (0-13.0) 10/21/18 11:00 2+ /HPF 10/21/18 11:00 Hyaline Casts 3 /LPF 10/07/18 02:34 Few /HPF 10/07/18 02:34 3+ /HPF 10/21/18 11:00 Presumptive negative 10/07/18 02:34 Presumptive negative 10/07/18 02:34 Ur Barbiturates Screen Presumptive negative 10/07/18 02:34 Ur Phencyclidine Scrn Presumptive negative 10/07/18 02:34 Ur Amphetamines Screen Presumptive negative 10/07/18 02:34 U Benzodiazepines Scrn Presumptive negative 10/07/18 02:34 Presumptive negative 10/07/18 02:34 U Marijuana (THC) Screen Presumptive positive 10/07/18 02:34 Disclamer 10/07/18 02:34 Blood Type O POSITIVE 10/22/18 04:39 Antibody Screen Negative 10/22/18 04:39 Crossmatch See Detail 10/22/18 04:39 Active Medications - Current Medications Current Medications: Generic Name Dose Route Start Last Admin Trade Name Freq PRN Reason Stop Dose Admin Acetaminophen 650 mg 10/07/18 04:59 10/20/18 12:56 Tylenol PO 650 mg Q4H PRN Administration Pain MILD(1-3)/Fever >100.5/[id number] Lipase/Protease/Amylase 1 each 10/08/18 10:00 Pancreangelica Arredondo 10,500 Unit FEEDTUBE PRN PRN For Clogged Feeding Tube Dextrose 50 ml 10/07/18 20:42 10/26/18 16:06 D50w (25gm) Syringe IV 50 ml PRN PRN Administration Hypoglycemia Furosemide 40 mg 10/19/18 11:00 10/28/18 10:49 Lasix PO 40 mg QDAY ULI Administration Hydralazine HCl 10 mg 10/07/18 05:07 10/14/18 08:35 Apresoline IV 10 mg Q4H PRN Administration Blood Pressure Hydrophilic Ointment 1 applic 10/07/18 02:40 Vaseline Lip Therapy TP Q2HR PRN Dry Lips Heparin Sodium/Sodium Chloride 25,000 unit in 500 mls @ 15 mls/hr 10/21/18 18 :00 10/28/18 04:57 Heparin/ 0.45% Nacl-25,000 Unit/500 Ml IV 1,100 units/hr TITRATE ULI 22 mls/hr Titration Protocol 750 UNITS/HR Insulin Glargine 8 units 10/24/18 10:00 10/28/18 09:21 Lantus SUB-Q 8 units DAILY ULI Administration Insulin Human Lispro 0 unit 10/25/18 11:30 10/28/18 09:19 Humalog SUB-Q 4 unit ACHS ULI Administration Protocol Lansoprazole 30 mg 10/16/18 22:00 10/28/18 09:18 Prevacid Solutab FEEDTUBE 30 mg BID ULI Administration Metoclopramide HCl 10 mg 10/11/18 13:00 10/12/18 19:32 Reglan IV 10 mg Q6HR PRN Administration Nausea And Vomiting Metoprolol Tartrate 12.5 mg 10/23/18 14:46 10/28/18 09:19 Lopressor PO 12.5 mg TID ULI Administration Multi-Ingred Cream/Lotion/Oil/Oint 1 applic 10/07/18 02:40 Artificial Tears Ophth Oint OU Q4HR PRN Dry Eye(s) Ondansetron HCl 4 mg 10/07/18 04:59 Zofran IV Q8H PRN N/V unrelieved by Reglan Quetiapine Fumarate 100 mg 10/09/18 22:00 10/27/18 22:43 Seroquel PO 100 mg QHS ULI Administration Simple Syrup 15 ml 10/08/18 10:00 Simple Syrup FEEDTUBE PRN PRN Hypoglycemia Simple Syrup 30 ml 10/08/18 10:00 10/09/18 01:09 Simple Syrup FEEDTUBE 30 ml PRN PRN Administration Hypoglycemia Sodium Bicarbonate 325 mg 10/08/18 10:00 Sodium Bicarbonate FEEDTUBE PRN PRN For Clogged Feeding Tube Sodium Chloride 10 ml 10/07/18 10:00 10/28/18 10:48 Sodium Chloride Flush Syringe 10 Ml IV 10 ml BID ULI Administration Sodium Chloride 10 ml 10/07/18 04:59 10/18/18 07:15 Sodium Chloride Flush Syringe 10 Ml IV 10 ml PRN PRN Administration LINE FLUSH Warfarin Sodium 10 mg 10/27/18 17:00 10/27/18 18:35 Coumadin PO 10 mg DAILY@1700 ULI Administration Nutrition/Malnutrition Assess - Dietary Evaluation Nutrition/Malnutrition Findings: Nutrition Notes Start: 10/07/18 12:17 Freq: Status: Active Protocol: Document 10/25/18 17:02 RM (Rec: 10/25/18 17:05 [id number]) Nutrition Notes Initial or Follow up Reassessment Current Diagnosis CKD (stage V CKD),Diabetes, Hypertension,Heart Failure Other Pertinent Diagnosis DKA, AMS Current Diet Consistent CHO Labs/Tests Reviewed Pertinent Medications Lasix Height 5 ft 2 in Weight 53 kg [place] Body Weight (kg) 50.00 BMI 21.3 Subjective/Other Information Pt stated that her appetite is good and that she eats all of her meals. Noted lunch at bedside w/100% eaten. Percent of energy/protein needs met: 100%/100% Burn Absent Trauma Absent #1 Nutrition Diagnosis Inadequate oral intake As Evidenced by Signs and Symptoms pt meeting 100% of calorie and protein needs Diagnosis Progress(for reassessment Resolved documentation) Is patient on ventilator? No Is Patient Ambulatory and/or Out of Bed No REE-([facility]-confined to bed) 1333.968 Calculation Used for Recommendations [facility] Additional Notes Pro needs 0.8-1g/k-55g/ day Fluid needs 1ml/kcal Nutrition Intervention Change Diet Order: Continue current Goal #1 Continue to meet at least 75% of calorie and protein needs via PO intakes Anticipated Discharge Needs: Consistent CHO diet Revisit per MD consult or patient Sign Off request:
[2018-10-28] MEDS: HEPARIN/ 0.45% NACL-25,000 UNIT/500 ML 25,000 UNIT/500 ML BAG IV SCH (12:35)
[2018-10-28] MEDS: COUMADIN PO SCH (17:25)
[2018-10-29 07:09] LABS: Hematocrit 23.8 % (30.3-42.9); Hemoglobin 7.8 gm/dl (10.1-14.3)
[2018-10-29 07:28] LABS: INR 1.15 (0.87-1.13)
[2018-10-29] MEDS: HumaLOG SUB-Q SCH ×4 (08:57→21:20)
[2018-10-29] MEDS: LANTUS SUB-Q SCH (09:00)
[2018-10-29] MEDS: LASIX PO SCH (09:01)
[2018-10-29] MEDS: PREVACID SOLUTAB FEEDTUBE SCH ×2 (09:01→21:19)
[2018-10-29] MEDS: LOPRESSOR PO SCH ×3 (09:02→20:23)
[2018-10-29] MEDS: SODIUM CHLORIDE FLUSH SYRINGE 10 ML IV SCH ×2 (09:03→21:20)
--- NOTE | 2018-10-29 09:45 | Progress Note ---
Assessment and Plan Acute hypoxemic respiratory failure, s/p mechanical ventilatory support. Symptomatic hypoglycemia. Seizures, possibly related to the hypoglycemia. Acute encephalopathy, toxic metabolic. Mild Hyponatremia Hyperkalemia s/p CABG with mechanical valve History of cardiomyopathy. (EF 40%) Right pleural effusion with infiltrate- probable aspiration History of diabetes. Hypertension. Subtherapeutic INR -Wean supplemental oxygen to keep O2 sats 88-90% -PRN ABGs/CXR -Heart failure measures -Monitor renal indices closely -Avoid nephrotoxic agents, adjust all medications for CrCL -Strict intake and output monitoring -VTE prophylaxis- anticoagulated. Has a mechanical valve Coumadin, daily PT/INR, goal INR is 2.5-3.5 Falls precautions Antibiotics, completed course Supportive transfusions as indicated -Accuchecks with glycemic control. Target glucose of 140-180 mg/dL -Bronchodilators with pulmonary hygiene per RT -Maintenance of sleep -wake cycle -Influenza and pneumonia vaccination per protocol -PT/OT as tolerated -Discharge planning -Discussed with hospitalist service Subjective Date of service: 10/29/18 Principal diagnosis: Ac hypoxemic resp failure; Seizures (?hypoglycemic); Ac encephalopathy(T/M) Interval history: Patient is seen today for: Acute hypoxemic respiratory failure, s/p mechanical ventilatory support; Symptomatic hypoglycemia; Seizures, possibly related to the hypoglycemia; Acute encephalopathy, toxic metabolic; Mild Hyponatremia; History of cardiomyopathy. (EF 40%) Seen and examined at bedside; 24hour events reviewed; nursing and respiratory care staff consulted; no adverse overnight events reported to me; no fevers,no bleeding , no shortness of breath, no chest pain. On supplemental oxygen at 2L via [place] . No nausea or vomiting Feeling better, ambulating in the room. Appetite is good Objective Vital Signs - 12hr 10/28/18 10/28/18 10/29/18 23:00 23:26 05:46 Temperature 98.6 F 98.7 F Pulse Rate 79 Respiratory 16 18 Rate Blood Pressure 156/86 123/85 10/29/18 09:02 Temperature Pulse Rate 91 H Respiratory Rate Blood Pressure 142/85 Constitutional: no acute distress, alert Eyes: non-icteric ENT: oropharynx moist Neck: supple, no lymphadenopathy, no JVD Effort: normal, mildly labored Ascultation: Bilateral: diminished breath sounds (bases) Cardiovascular: regular rate and rhythm, other (+ metalic valve click) Gastrointestinal: normoactive bowel sounds, soft, non-tender, non-distended, other (No HSM) Integumentary: normal Extremities: no cyanosis, no edema, pulses normal, no ischemia or petechiae Neurologic: normal mental status, non-focal exam (grossly), pupils equal and round, CN II-XII normal, motor strength normal and Psychiatric: mood appropriate, affect normal CBC and BMP: 10/29/18 07:06 10/26/18 15:54 ABG, PT/INR, D-dimer: ABG POC ABG pH 7.458 (7.35-7.45) H 10/19/18 19:56 POC ABG pCO2 37.9 (35-45) 10/19/18 19:56 POC ABG pO2 63 (80-105) L 10/19/18 19:56 POC ABG HCO3 26.8 (22-26 mml/L) 10/19/18 19:56 POC ABG Total CO2 28 (23-27mmol/L) 10/19/18 19:56 POC ABG O2 Sat 93 10/19/18 19:56 PT/INR, D-dimer PT 15.4 Sec. (12.2-14.9) H 10/29/18 07:06 INR 1.15 (0.87-1.13) H 10/29/18 07:06 Abnormal lab findings: Abnormal Labs 10/07/18 10/07/18 10/07/18 02:20 02:43 02:43 WBC RBC Hgb Hct MCH 25 L RDW 21.5 H Plt Count Lymph % (Auto) [place] % (Auto) Lymph # 0.9 L [place] # Eos # Baso # Seg Neutrophils % 78.4 H Seg Neuts % (Manual) Lymphocytes % (Manual) Seg Neutrophils # Seg Neutrophils # Man Lymphocytes # (Manual) PT INR APTT Heparin Anti-Xa Level POC ABG pH POC ABG pCO2 POC ABG pO2 Sodium Potassium Chloride 108.0 H Carbon Dioxide 21 L BUN Creatinine 1.5 H Glucose 115 H POC Glucose 136 H Hemoglobin A1c Lactic Acid Calcium Phosphorus AST 51 H Alkaline Phosphatase 257 H NT-Pro-B Natriuret Pep Total Protein Albumin Urine WBC (Auto) Crossmatch 10/07/18 10/07/18 10/07/18 02:43 04:32 05:12 WBC RBC Hgb Hct MCH RDW Plt Count Lymph % (Auto) [place] % (Auto) Lymph # [place] # Eos # Baso # Seg Neutrophils % Seg Neuts % (Manual) Lymphocytes % (Manual) Seg Neutrophils # Seg Neutrophils # Man Lymphocytes # (Manual) PT 25.4 H INR 2.14 H APTT Heparin Anti-Xa Level POC ABG pH POC ABG pCO2 33.6 L POC ABG pO2 69 L Sodium Potassium Chloride Carbon Dioxide BUN Creatinine Glucose POC Glucose Hemoglobin A1c Lactic Acid 2.40 H* Calcium Phosphorus AST Alkaline Phosphatase NT-Pro-B Natriuret Pep Total Protein Albumin Urine WBC (Auto) Crossmatch 10/07/18 10/07/18 10/07/18 06:28 18:39 20:26 WBC RBC Hgb Hct MCH RDW Plt Count Lymph % (Auto) [place] % (Auto) Lymph # [place] # Eos # Baso # Seg Neutrophils % Seg Neuts % (Manual) Lymphocytes % (Manual) Seg Neutrophils # Seg Neutrophils # Man Lymphocytes # (Manual) PT INR APTT Heparin Anti-Xa Level POC ABG pH POC ABG pCO2 POC ABG pO2 Sodium Potassium Chloride Carbon Dioxide BUN Creatinine Glucose POC Glucose 164 H 440 H > 500 H Hemoglobin A1c Lactic Acid Calcium Phosphorus AST Alkaline Phosphatase NT-Pro-B Natriuret Pep Total Protein Albumin Urine WBC (Auto) Crossmatch 10/07/18 10/07/18 10/07/18 20:28 21:53 22:08 WBC RBC Hgb Hct MCH RDW Plt Count Lymph % (Auto) [place] % (Auto) Lymph # [place] # Eos # Baso # Seg Neutrophils % Seg Neuts % (Manual) Lymphocytes % (Manual) Seg Neutrophils # Seg Neutrophils # Man Lymphocytes # (Manual) PT INR APTT Heparin Anti-Xa Level POC ABG pH POC ABG pCO2 POC ABG pO2 Sodium 136 L D Potassium 6.4 H* D Chloride Carbon Dioxide 10 L D BUN 30 H Creatinine 2.0 H Glucose 544 H* POC Glucose 483 H > 500 H Hemoglobin A1c Lactic Acid Calcium 7.0 L D Phosphorus AST Alkaline Phosphatase NT-Pro-B Natriuret Pep Total Protein Albumin Urine WBC (Auto) Crossmatch 10/07/18 10/07/18 10/07/18 22:08 22:08 22:56 WBC RBC Hgb Hct MCH RDW Plt Count Lymph % (Auto) [place] % (Auto) Lymph # [place] # Eos # Baso # Seg Neutrophils % Seg Neuts % (Manual) Lymphocytes % (Manual) Seg Neutrophils # Seg Neutrophils # Man Lymphocytes # (Manual) PT INR APTT Heparin Anti-Xa Level POC ABG pH POC ABG pCO2 POC ABG pO2 Sodium Potassium Chloride Carbon Dioxide BUN Creatinine Glucose POC Glucose 462 H Hemoglobin A1c 10.2 H Lactic Acid Calcium Phosphorus 7.40 H AST Alkaline Phosphatase NT-Pro-B Natriuret Pep Total Protein Albumin Urine WBC (Auto) Crossmatch 10/07/18 10/08/18 10/08/18 23:39 00:58 02:09 WBC RBC Hgb Hct MCH RDW Plt Count Lymph % (Auto) [place] % (Auto) Lymph # [place] # Eos # Baso # Seg Neutrophils % Seg Neuts % (Manual) Lymphocytes % (Manual) Seg Neutrophils # Seg Neutrophils # Man Lymphocytes # (Manual) PT INR APTT Heparin Anti-Xa Level POC ABG pH POC ABG pCO2 POC ABG pO2 Sodium Potassium Chloride Carbon Dioxide BUN Creatinine Glucose POC Glucose 396 H 375 H 285 H Hemoglobin A1c Lactic Acid Calcium Phosphorus AST Alkaline Phosphatase NT-Pro-B Natriuret Pep Total Protein Albumin Urine WBC (Auto) Crossmatch 10/08/18 10/08/18 10/08/18 03:10 03:33 04:05 WBC RBC Hgb Hct MCH RDW Plt Count Lymph % (Auto) [place] % (Auto) Lymph # [place] # Eos # Baso # Seg Neutrophils % Seg Neuts % (Manual) Lymphocytes % (Manual) Seg Neutrophils # Seg Neutrophils # Man Lymphocytes # (Manual) PT INR APTT Heparin Anti-Xa Level POC ABG pH 7.243 L POC ABG pCO2 33.8 L POC ABG pO2 126 H Sodium Potassium 5.3 H Chloride 110.7 H Carbon Dioxide 14 L BUN 33 H Creatinine 2.2 H Glucose 193 H POC Glucose 251 H Hemoglobin A1c Lactic Acid Calcium 7.0 L Phosphorus AST Alkaline Phosphatase 155 H NT-Pro-B Natriuret Pep Total Protein 5.2 L D Albumin 2.6 L Urine WBC (Auto) Crossmatch 10/08/18 10/08/18 10/08/18 04:05 04:05 04:09 WBC 11.8 H RBC 3.32 L Hgb 8.3 L Hct 27.5 L D MCH 25 L RDW 22.0 H Plt Count Lymph % (Auto) 6.8 L [place] % (Auto) 12.0 H Lymph # 0.8 L [place] # 1.4 H Eos # Baso # Seg Neutrophils % 80.6 H Seg Neuts % (Manual) Lymphocytes % (Manual) Seg Neutrophils # 9.5 H Seg Neutrophils # Man Lymphocytes # (Manual) PT INR APTT Heparin Anti-Xa Level POC ABG pH POC ABG pCO2 POC ABG pO2 Sodium Potassium Chloride Carbon Dioxide BUN Creatinine Glucose POC Glucose 175 H Hemoglobin A1c Lactic Acid 3.70 H* Calcium Phosphorus AST Alkaline Phosphatase NT-Pro-B Natriuret Pep Total Protein Albumin Urine WBC (Auto) Crossmatch 10/08/18 10/08/18 10/08/18 05:07 06:05 07:14 WBC RBC Hgb Hct MCH RDW Plt Count Lymph % (Auto) [place] % (Auto) Lymph # [place] # Eos # Baso # Seg Neutrophils % Seg Neuts % (Manual) Lymphocytes % (Manual) Seg Neutrophils # Seg Neutrophils # Man Lymphocytes # (Manual) PT INR APTT Heparin Anti-Xa Level POC ABG pH POC ABG pCO2 POC ABG pO2 Sodium Potassium Chloride Carbon Dioxide BUN Creatinine Glucose POC Glucose 125 H 122 H 147 H Hemoglobin A1c Lactic Acid Calcium Phosphorus AST Alkaline Phosphatase NT-Pro-B Natriuret Pep Total Protein Albumin Urine WBC (Auto) Crossmatch 10/08/18 10/08/18 10/08/18 07:22 08:09 08:47 WBC RBC Hgb Hct MCH RDW Plt Count Lymph % (Auto) [place] % (Auto) Lymph # [place] # Eos # Baso # Seg Neutrophils % Seg Neuts % (Manual) Lymphocytes % (Manual) Seg Neutrophils # Seg Neutrophils # Man Lymphocytes # (Manual) PT INR APTT Heparin Anti-Xa Level POC ABG pH POC ABG pCO2 POC ABG pO2 Sodium Potassium 5.2 H Chloride 112.4 H Carbon Dioxide 17 L BUN 32 H Creatinine 2.1 H Glucose 148 H POC Glucose 134 H 148 H Hemoglobin A1c Lactic Acid Calcium 6.6 L Phosphorus AST Alkaline Phosphatase NT-Pro-B Natriuret Pep Total Protein Albumin Urine WBC (Auto) Crossmatch 10/08/18 10/08/18 10/08/18 10:21 13:29 14:21 WBC RBC Hgb Hct MCH RDW Plt Count Lymph % (Auto) [place] % (Auto) Lymph # [place] # Eos # Baso # Seg Neutrophils % Seg Neuts % (Manual) Lymphocytes % (Manual) Seg Neutrophils # Seg Neutrophils # Man Lymphocytes # (Manual) PT INR APTT Heparin Anti-Xa Level POC ABG pH POC ABG pCO2 POC ABG pO2 Sodium Potassium Chloride Carbon Dioxide BUN Creatinine Glucose POC Glucose 115 H 109 H 118 H Hemoglobin A1c Lactic Acid Calcium Phosphorus AST Alkaline Phosphatase NT-Pro-B Natriuret Pep Total Protein Albumin Urine WBC (Auto) Crossmatch 10/08/18 10/08/18 10/08/18 15:27 17:00 17:00 WBC 11.3 H RBC 3.21 L Hgb 7.9 L Hct 25.7 L MCH 25 L RDW 21.8 H Plt Count Lymph % (Auto) 8.5 L [place] % (Auto) 7.7 H Lymph # 1.0 L [place] # 0.9 H Eos # Baso # Seg Neutrophils % 82.8 H Seg Neuts % (Manual) Lymphocytes % (Manual) Seg Neutrophils # 9.3 H Seg Neutrophils # Man Lymphocytes # (Manual) PT INR APTT Heparin Anti-Xa Level POC ABG pH POC ABG pCO2 POC ABG pO2 Sodium Potassium Chloride Carbon Dioxide BUN Creatinine Glucose POC Glucose 129 H Hemoglobin A1c Lactic Acid Calcium Phosphorus AST Alkaline Phosphatase NT-Pro-B Natriuret Pep 3097 H Total Protein Albumin Urine WBC (Auto) Crossmatch 10/08/18 10/08/18 10/08/18 17:07 17:12 18:22 WBC RBC Hgb Hct MCH RDW Plt Count Lymph % (Auto) [place] % (Auto) Lymph # [place] # Eos # Baso # Seg Neutrophils % Seg Neuts % (Manual) Lymphocytes % (Manual) Seg Neutrophils # Seg Neutrophils # Man Lymphocytes # (Manual) PT INR APTT Heparin Anti-Xa Level POC ABG pH 7.337 L POC ABG pCO2 32.0 L POC ABG pO2 130 H Sodium Potassium Chloride 115.5 H Carbon Dioxide 17 L BUN 30 H Creatinine 1.9 H Glucose 103 H POC Glucose 119 H Hemoglobin A1c Lactic Acid Calcium 6.9 L Phosphorus AST Alkaline Phosphatase NT-Pro-B Natriuret Pep Total Protein Albumin Urine WBC (Auto) Crossmatch 10/08/18 10/08/18 10/09/18 20:09 20:57 01:10 WBC RBC Hgb Hct MCH RDW Plt Count Lymph % (Auto) [place] % (Auto) Lymph # [place] # Eos # Baso # Seg Neutrophils % Seg Neuts % (Manual) Lymphocytes % (Manual) Seg Neutrophils # Seg Neutrophils # Man Lymphocytes # (Manual) PT INR APTT Heparin Anti-Xa Level POC ABG pH POC ABG pCO2 POC ABG pO2 Sodium Potassium Chloride 114.3 H 113.7 H Carbon Dioxide 15 L 14 L BUN 29 H 29 H Creatinine 2.1 H 2.0 H Glucose 132 H 39 L* POC Glucose 150 H Hemoglobin A1c Lactic Acid Calcium 6.7 L 6.9 L Phosphorus AST Alkaline Phosphatase NT-Pro-B Natriuret Pep Total Protein Albumin Urine WBC (Auto) Crossmatch 10/09/18 10/09/18 10/09/18 01:10 01:43 03:20 WBC RBC Hgb Hct MCH RDW Plt Count Lymph % (Auto) [place] % (Auto) Lymph # [place] # Eos # Baso # Seg Neutrophils % Seg Neuts % (Manual) Lymphocytes % (Manual) Seg Neutrophils # Seg Neutrophils # Man Lymphocytes # (Manual) PT INR APTT Heparin Anti-Xa Level POC ABG pH POC ABG pCO2 POC ABG pO2 Sodium Potassium Chloride Carbon Dioxide BUN Creatinine Glucose POC Glucose < 40 L < 40 L Hemoglobin A1c Lactic Acid Calcium Phosphorus AST Alkaline Phosphatase NT-Pro-B Natriuret Pep 2865 H Total Protein Albumin Urine WBC (Auto) Crossmatch 10/09/18 10/09/18 10/09/18 04:23 05:03 05:25 WBC RBC Hgb Hct MCH RDW Plt Count Lymph % (Auto) [place] % (Auto) Lymph # [place] # Eos # Baso # Seg Neutrophils % Seg Neuts % (Manual) Lymphocytes % (Manual) Seg Neutrophils # Seg Neutrophils # Man Lymphocytes # (Manual) PT INR APTT Heparin Anti-Xa Level POC ABG pH POC ABG pCO2 30.6 L 32.3 L POC ABG pO2 118 H Sodium Potassium Chloride Carbon Dioxide BUN Creatinine Glucose POC Glucose 148 H Hemoglobin A1c Lactic Acid Calcium Phosphorus AST Alkaline Phosphatase NT-Pro-B Natriuret Pep Total Protein Albumin Urine WBC (Auto) Crossmatch 10/09/18 10/09/18 10/09/18 06:00 08:34 09:58 WBC RBC Hgb Hct MCH RDW Plt Count Lymph % (Auto) [place] % (Auto) Lymph # [place] # Eos # Baso # Seg Neutrophils % Seg Neuts % (Manual) Lymphocytes % (Manual) Seg Neutrophils # Seg Neutrophils # Man Lymphocytes # (Manual) PT INR APTT Heparin Anti-Xa Level POC ABG pH POC ABG pCO2 POC ABG pO2 Sodium Potassium Chloride Carbon Dioxide BUN Creatinine Glucose POC Glucose 173 H 196 H 183 H Hemoglobin A1c Lactic Acid Calcium Phosphorus AST Alkaline Phosphatase NT-Pro-B Natriuret Pep Total Protein Albumin Urine WBC (Auto) Crossmatch 10/09/18 10/09/18 10/09/18 12:25 12:46 18:16 WBC RBC Hgb Hct MCH RDW Plt Count Lymph % (Auto) [place] % (Auto) Lymph # [place] # Eos # Baso # Seg Neutrophils % Seg Neuts % (Manual) Lymphocytes % (Manual) Seg Neutrophils # Seg Neutrophils # Man Lymphocytes # (Manual) PT INR APTT Heparin Anti-Xa Level POC ABG pH POC ABG pCO2 POC ABG pO2 Sodium Potassium Chloride 110.3 H Carbon Dioxide 16 L BUN 24 H Creatinine 1.8 H Glucose 207 H POC Glucose 208 H 177 H Hemoglobin A1c Lactic Acid Calcium 6.9 L Phosphorus AST Alkaline Phosphatase NT-Pro-B Natriuret Pep Total Protein Albumin Urine WBC (Auto) Crossmatch 10/09/18 10/10/18 10/10/18 21:11 00:11 05:41 WBC RBC Hgb Hct MCH RDW Plt Count Lymph % (Auto) [place] % (Auto) Lymph # [place] # Eos # Baso # Seg Neutrophils % Seg Neuts % (Manual) Lymphocytes % (Manual) Seg Neutrophils # Seg Neutrophils # Man Lymphocytes # (Manual) PT INR APTT Heparin Anti-Xa Level POC ABG pH POC ABG pCO2 POC ABG pO2 Sodium Potassium Chloride Carbon Dioxide BUN Creatinine Glucose POC Glucose 124 H 156 H 42 L Hemoglobin A1c Lactic Acid Calcium Phosphorus AST Alkaline Phosphatase NT-Pro-B Natriuret Pep Total Protein Albumin Urine WBC (Auto) Crossmatch 10/10/18 10/10/18 10/10/18 05:45 07:28 12:07 WBC RBC Hgb Hct MCH RDW Plt Count Lymph % (Auto) [place] % (Auto) Lymph # [place] # Eos # Baso # Seg Neutrophils % Seg Neuts % (Manual) Lymphocytes % (Manual) Seg Neutrophils # Seg Neutrophils # Man Lymphocytes # (Manual) PT INR APTT Heparin Anti-Xa Level POC ABG pH POC ABG pCO2 POC ABG pO2 Sodium 146 H D Potassium Chloride 111.2 H Carbon Dioxide BUN 21 H Creatinine 1.8 H Glucose 44 L POC Glucose 114 H 49 L Hemoglobin A1c Lactic Acid Calcium 7.4 L Phosphorus AST Alkaline Phosphatase NT-Pro-B Natriuret Pep Total Protein Albumin Urine WBC (Auto) Crossmatch 10/10/18 10/10/18 10/10/18 12:37 18:02 20:47 WBC RBC Hgb Hct MCH RDW Plt Count Lymph % (Auto) [place] % (Auto) Lymph # [place] # Eos # Baso # Seg Neutrophils % Seg Neuts % (Manual) Lymphocytes % (Manual) Seg Neutrophils # Seg Neutrophils # Man Lymphocytes # (Manual) PT INR APTT Heparin Anti-Xa Level POC ABG pH POC ABG pCO2 POC ABG pO2 Sodium Potassium Chloride Carbon Dioxide BUN Creatinine Glucose POC Glucose 142 H 49 L 162 H Hemoglobin A1c Lactic Acid Calcium Phosphorus AST Alkaline Phosphatase NT-Pro-B Natriuret Pep Total Protein Albumin Urine WBC (Auto) Crossmatch 10/10/18 10/10/18 10/10/18 21:45 22:19 23:50 WBC RBC Hgb Hct MCH RDW Plt Count Lymph % (Auto) [place] % (Auto) Lymph # [place] # Eos # Baso # Seg Neutrophils % Seg Neuts % (Manual) Lymphocytes % (Manual) Seg Neutrophils # Seg Neutrophils # Man Lymphocytes # (Manual) PT INR APTT Heparin Anti-Xa Level POC ABG pH 7.334 L POC ABG pCO2 47.0 H POC ABG pO2 53 L 79 L Sodium Potassium Chloride Carbon Dioxide BUN Creatinine Glucose POC Glucose 185 H Hemoglobin A1c Lactic Acid Calcium Phosphorus AST Alkaline Phosphatase NT-Pro-B Natriuret Pep Total Protein Albumin Urine WBC (Auto) Crossmatch 10/11/18 10/11/18 10/11/18 05:00 06:41 07:17 WBC RBC Hgb Hct MCH RDW Plt Count Lymph % (Auto) [place] % (Auto) Lymph # [place] # Eos # Baso # Seg Neutrophils % Seg Neuts % (Manual) Lymphocytes % (Manual) Seg Neutrophils # Seg Neutrophils # Man Lymphocytes # (Manual) PT INR APTT Heparin Anti-Xa Level POC ABG pH POC ABG pCO2 POC ABG pO2 Sodium Potassium Chloride Carbon Dioxide BUN Creatinine 1.7 H Glucose 43 L POC Glucose 48 L 129 H Hemoglobin A1c Lactic Acid Calcium 7.7 L Phosphorus AST Alkaline Phosphatase NT-Pro-B Natriuret Pep Total Protein Albumin Urine WBC (Auto) Crossmatch 10/11/18 10/11/18 10/11/18 11:14 13:32 14:25 WBC RBC 3.32 L Hgb 8.2 L Hct 26.4 L MCH 25 L RDW 21.6 H Plt Count Lymph % (Auto) [place] % (Auto) Lymph # [place] # Eos # Baso # Seg Neutrophils % Seg Neuts % (Manual) Lymphocytes % (Manual) Seg Neutrophils # Seg Neutrophils # Man Lymphocytes # (Manual) PT 21.7 H INR 1.76 H APTT 50.5 H Heparin Anti-Xa Level POC ABG pH POC ABG pCO2 POC ABG pO2 Sodium Potassium Chloride Carbon Dioxide BUN Creatinine Glucose POC Glucose 138 H Hemoglobin A1c Lactic Acid Calcium Phosphorus AST Alkaline Phosphatase NT-Pro-B Natriuret Pep Total Protein Albumin Urine WBC (Auto) Crossmatch 10/11/18 10/11/18 10/11/18 14:25 15:41 17:31 WBC RBC Hgb Hct MCH RDW Plt Count Lymph % (Auto) [place] % (Auto) Lymph # [place] # Eos # Baso # Seg Neutrophils % Seg Neuts % (Manual) Lymphocytes % (Manual) Seg Neutrophils # Seg Neutrophils # Man Lymphocytes # (Manual) PT 20.6 H INR 1.65 H APTT 54.9 H Heparin Anti-Xa Level POC ABG pH POC ABG pCO2 POC ABG pO2 53 L Sodium Potassium Chloride Carbon Dioxide BUN Creatinine Glucose POC Glucose 133 H Hemoglobin A1c Lactic Acid Calcium Phosphorus AST Alkaline Phosphatase NT-Pro-B Natriuret Pep Total Protein Albumin Urine WBC (Auto) Crossmatch 10/12/18 10/12/18 10/12/18 00:30 03:56 04:25 WBC RBC Hgb Hct MCH RDW Plt Count Lymph % (Auto) [place] % (Auto) Lymph # [place] # Eos # Baso # Seg Neutrophils % Seg Neuts % (Manual) Lymphocytes % (Manual) Seg Neutrophils # Seg Neutrophils # Man Lymphocytes # (Manual) PT INR APTT Heparin Anti-Xa Level POC ABG pH 7.514 H POC ABG pCO2 31.2 L POC ABG pO2 Sodium Potassium Chloride Carbon Dioxide BUN Creatinine 1.6 H Glucose 287 H POC Glucose 353 H Hemoglobin A1c Lactic Acid Calcium 8.0 L Phosphorus AST Alkaline Phosphatase NT-Pro-B Natriuret Pep Total Protein Albumin Urine WBC (Auto) Crossmatch 10/12/18 10/12/18 10/12/18 04:49 12:13 17:53 WBC RBC Hgb Hct MCH RDW Plt Count Lymph % (Auto) [place] % (Auto) Lymph # [place] # Eos # Baso # Seg Neutrophils % Seg Neuts % (Manual) Lymphocytes % (Manual) Seg Neutrophils # Seg Neutrophils # Man Lymphocytes # (Manual) PT INR APTT Heparin Anti-Xa Level POC ABG pH POC ABG pCO2 POC ABG pO2 Sodium Potassium Chloride Carbon Dioxide BUN Creatinine Glucose POC Glucose 297 H 290 H 211 H Hemoglobin A1c Lactic Acid Calcium Phosphorus AST Alkaline Phosphatase NT-Pro-B Natriuret Pep Total Protein Albumin Urine WBC (Auto) Crossmatch 10/12/18 10/12/18 10/13/18 18:57 21:35 04:50 WBC 11.8 H RBC 3.08 L Hgb 7.4 L Hct 24.2 L MCH 24 L RDW 21.5 H Plt Count Lymph % (Auto) [place] % (Auto) Lymph # [place] # Eos # Baso # Seg Neutrophils % Seg Neuts % (Manual) Lymphocytes % (Manual) Seg Neutrophils # Seg Neutrophils # Man Lymphocytes # (Manual) PT INR APTT Heparin Anti-Xa Level 1.74 H POC ABG pH 7.497 H POC ABG pCO2 33.2 L POC ABG pO2 71 L Sodium Potassium Chloride Carbon Dioxide BUN Creatinine Glucose POC Glucose Hemoglobin A1c Lactic Acid Calcium Phosphorus AST Alkaline Phosphatase NT-Pro-B Natriuret Pep Total Protein Albumin Urine WBC (Auto) Crossmatch 10/13/18 10/13/18 10/13/18 05:25 05:25 05:37 WBC 12.1 H RBC 3.02 L Hgb 7.4 L Hct 23.7 L MCH 25 L RDW 21.0 H Plt Count Lymph % (Auto) 9.6 L [place] % (Auto) 10.0 H Lymph # [place] # 1.2 H Eos # Baso # Seg Neutrophils % 76.2 H Seg Neuts % (Manual) Lymphocytes % (Manual) Seg Neutrophils # 9.2 H Seg Neutrophils # Man Lymphocytes # (Manual) PT INR APTT Heparin Anti-Xa Level POC ABG pH POC ABG pCO2 POC ABG pO2 Sodium Potassium Chloride Carbon Dioxide BUN Creatinine 1.6 H Glucose 175 H POC Glucose 165 H Hemoglobin A1c Lactic Acid Calcium 8.3 L Phosphorus AST Alkaline Phosphatase NT-Pro-B Natriuret Pep Total Protein Albumin Urine WBC (Auto) Crossmatch 10/13/18 10/13/18 10/13/18 06:45 11:12 17:19 WBC RBC Hgb Hct MCH RDW Plt Count Lymph % (Auto) [place] % (Auto) Lymph # [place] # Eos # Baso # Seg Neutrophils % Seg Neuts % (Manual) Lymphocytes % (Manual) Seg Neutrophils # Seg Neutrophils # Man Lymphocytes # (Manual) PT 17.4 H INR 1.34 H APTT Heparin Anti-Xa Level POC ABG pH POC ABG pCO2 POC ABG pO2 Sodium Potassium Chloride Carbon Dioxide BUN Creatinine Glucose POC Glucose 223 H 129 H Hemoglobin A1c Lactic Acid Calcium Phosphorus AST Alkaline Phosphatase NT-Pro-B Natriuret Pep Total Protein Albumin Urine WBC (Auto) Crossmatch 10/13/18 10/14/18 10/14/18 23:39 05:01 06:14 WBC RBC Hgb Hct MCH RDW Plt Count Lymph % (Auto) [place] % (Auto) Lymph # [place] # Eos # Baso # Seg Neutrophils % Seg Neuts % (Manual) Lymphocytes % (Manual) Seg Neutrophils # Seg Neutrophils # Man Lymphocytes # (Manual) PT INR APTT Heparin Anti-Xa Level POC ABG pH POC ABG pCO2 POC ABG pO2 Sodium Potassium Chloride Carbon Dioxide BUN Creatinine 1.5 H Glucose 264 H POC Glucose 171 H 226 H Hemoglobin A1c Lactic Acid Calcium 8.0 L Phosphorus AST Alkaline Phosphatase NT-Pro-B Natriuret Pep Total Protein Albumin Urine WBC (Auto) Crossmatch 10/14/18 10/14/18 10/14/18 06:14 12:24 19:33 WBC RBC Hgb Hct MCH RDW Plt Count Lymph % (Auto) [place] % (Auto) Lymph # [place] # Eos # Baso # Seg Neutrophils % Seg Neuts % (Manual) Lymphocytes % (Manual) Seg Neutrophils # Seg Neutrophils # Man Lymphocytes # (Manual) PT 22.1 H INR 1.80 H APTT Heparin Anti-Xa Level POC ABG pH POC ABG pCO2 POC ABG pO2 Sodium Potassium Chloride Carbon Dioxide BUN Creatinine Glucose POC Glucose 403 H 164 H Hemoglobin A1c Lactic Acid Calcium Phosphorus AST Alkaline Phosphatase NT-Pro-B Natriuret Pep Total Protein Albumin Urine WBC (Auto) Crossmatch 10/15/18 10/15/18 10/15/18 00:29 06:03 07:00 WBC RBC Hgb Hct MCH RDW Plt Count Lymph % (Auto) [place] % (Auto) Lymph # [place] # Eos # Baso # Seg Neutrophils % Seg Neuts % (Manual) Lymphocytes % (Manual) Seg Neutrophils # Seg Neutrophils # Man Lymphocytes # (Manual) PT INR APTT Heparin Anti-Xa Level POC ABG pH POC ABG pCO2 POC ABG pO2 Sodium Potassium Chloride Carbon Dioxide BUN 20 H Creatinine 1.7 H Glucose 308 H POC Glucose 237 H 282 H Hemoglobin A1c Lactic Acid Calcium 7.6 L Phosphorus AST Alkaline Phosphatase NT-Pro-B Natriuret Pep Total Protein Albumin Urine WBC (Auto) Crossmatch 10/15/18 10/15/18 10/15/18 07:00 08:03 10:27 WBC RBC Hgb 5.8 L* Hct 18.5 L* MCH RDW Plt Count Lymph % (Auto) [place] % (Auto) Lymph # [place] # Eos # Baso # Seg Neutrophils % Seg Neuts % (Manual) Lymphocytes % (Manual) Seg Neutrophils # Seg Neutrophils # Man Lymphocytes # (Manual) PT 46.1 H INR 4.52 H APTT Heparin Anti-Xa Level 0.25 L POC ABG pH POC ABG pCO2 POC ABG pO2 Sodium Potassium Chloride Carbon Dioxide BUN Creatinine Glucose POC Glucose Hemoglobin A1c Lactic Acid Calcium Phosphorus AST Alkaline Phosphatase NT-Pro-B Natriuret Pep Total Protein Albumin Urine WBC (Auto) Crossmatch See Detail 10/15/18 10/15/18 10/16/18 14:03 15:30 10:18 WBC RBC Hgb Hct MCH RDW Plt Count Lymph % (Auto) [place] % (Auto) Lymph # [place] # Eos # Baso # Seg Neutrophils % Seg Neuts % (Manual) Lymphocytes % (Manual) Seg Neutrophils # Seg Neutrophils # Man Lymphocytes # (Manual) PT 53.8 H INR 5.48 H* APTT Heparin Anti-Xa Level POC ABG pH POC ABG pCO2 POC ABG pO2 Sodium Potassium Chloride Carbon Dioxide BUN Creatinine Glucose POC Glucose 336 H 259 H Hemoglobin A1c Lactic Acid Calcium Phosphorus AST Alkaline Phosphatase NT-Pro-B Natriuret Pep Total Protein Albumin Urine WBC (Auto) Crossmatch 10/16/18 10/16/18 10/16/18 10:18 10:18 13:03 WBC 14.8 H RBC 3.03 L Hgb 8.2 L Hct 24.9 L D MCH 27 L RDW 19.2 H Plt Count Lymph % (Auto) 5.7 L [place] % (Auto) Lymph # 0.8 L [place] # 1.1 H Eos # Baso # 0.2 H Seg Neutrophils % 84.3 H Seg Neuts % (Manual) Lymphocytes % (Manual) Seg Neutrophils # 12.5 H Seg Neutrophils # Man Lymphocytes # (Manual) PT INR APTT Heparin Anti-Xa Level POC ABG pH POC ABG pCO2 POC ABG pO2 Sodium Potassium Chloride Carbon Dioxide 20 L BUN 21 H Creatinine 1.5 H Glucose 326 H POC Glucose 329 H Hemoglobin A1c Lactic Acid Calcium 7.8 L Phosphorus AST Alkaline Phosphatase NT-Pro-B Natriuret Pep Total Protein Albumin Urine WBC (Auto) Crossmatch 10/16/18 10/17/18 10/17/18 13:27 00:35 05:00 WBC RBC Hgb Hct MCH RDW Plt Count Lymph % (Auto) [place] % (Auto) Lymph # [place] # Eos # Baso # Seg Neutrophils % Seg Neuts % (Manual) Lymphocytes % (Manual) Seg Neutrophils # Seg Neutrophils # Man Lymphocytes # (Manual) PT 55.4 H 60.2 H INR 5.68 H* 6.30 H* APTT Heparin Anti-Xa Level POC ABG pH POC ABG pCO2 POC ABG pO2 Sodium Potassium Chloride Carbon Dioxide BUN Creatinine Glucose POC Glucose 407 H Hemoglobin A1c Lactic Acid Calcium Phosphorus AST Alkaline Phosphatase NT-Pro-B Natriuret Pep Total Protein Albumin Urine WBC (Auto) Crossmatch 10/17/18 10/17/18 10/17/18 05:00 05:00 05:29 WBC 11.6 H RBC 2.99 L Hgb 8.0 L Hct 24.2 L MCH 27 L RDW 19.2 H Plt Count Lymph % (Auto) [place] % (Auto) Lymph # [place] # Eos # Baso # Seg Neutrophils % Seg Neuts % (Manual) 87.0 H Lymphocytes % (Manual) 9.0 L Seg Neutrophils # Seg Neutrophils # Man 10.1 H Lymphocytes # (Manual) 1.0 L PT INR APTT Heparin Anti-Xa Level POC ABG pH POC ABG pCO2 POC ABG pO2 Sodium Potassium 3.4 L D Chloride Carbon Dioxide BUN Creatinine 1.4 H Glucose 170 H POC Glucose 156 H Hemoglobin A1c Lactic Acid Calcium 7.6 L Phosphorus AST Alkaline Phosphatase NT-Pro-B Natriuret Pep Total Protein 5.4 L Albumin 2.2 L Urine WBC (Auto) Crossmatch 10/17/18 10/17/18 10/18/18 11:59 17:06 00:21 WBC RBC Hgb Hct MCH RDW Plt Count Lymph % (Auto) [place] % (Auto) Lymph # [place] # Eos # Baso # Seg Neutrophils % Seg Neuts % (Manual) Lymphocytes % (Manual) Seg Neutrophils # Seg Neutrophils # Man Lymphocytes # (Manual) PT INR APTT Heparin Anti-Xa Level POC ABG pH POC ABG pCO2 POC ABG pO2 Sodium Potassium Chloride Carbon Dioxide BUN Creatinine Glucose POC Glucose 389 H 151 H 355 H Hemoglobin A1c Lactic Acid Calcium Phosphorus AST Alkaline Phosphatase NT-Pro-B Natriuret Pep Total Protein Albumin Urine WBC (Auto) Crossmatch 10/18/18 10/18/18 10/18/18 04:17 04:17 04:17 WBC RBC 3.01 L Hgb 8.1 L Hct 24.6 L MCH 27 L RDW 19.7 H Plt Count Lymph % (Auto) 12.7 L [place] % (Auto) Lymph # [place] # Eos # Baso # Seg Neutrophils % 76.3 H Seg Neuts % (Manual) Lymphocytes % (Manual) Seg Neutrophils # 8.2 H Seg Neutrophils # Man Lymphocytes # (Manual) PT 39.5 H INR 3.72 H APTT Heparin Anti-Xa Level POC ABG pH POC ABG pCO2 POC ABG pO2 Sodium Potassium 3.5 L Chloride Carbon Dioxide BUN Creatinine 1.5 H Glucose 115 H POC Glucose Hemoglobin A1c Lactic Acid Calcium 7.4 L Phosphorus AST Alkaline Phosphatase NT-Pro-B Natriuret Pep Total Protein Albumin Urine WBC (Auto) Crossmatch 10/18/18 10/18/18 10/18/18 06:45 13:39 17:12 WBC RBC Hgb Hct MCH RDW Plt Count Lymph % (Auto) [place] % (Auto) Lymph # [place] # Eos # Baso # Seg Neutrophils % Seg Neuts % (Manual) Lymphocytes % (Manual) Seg Neutrophils # Seg Neutrophils # Man Lymphocytes # (Manual) PT INR APTT Heparin Anti-Xa Level POC ABG pH POC ABG pCO2 POC ABG pO2 Sodium Potassium Chloride Carbon Dioxide BUN Creatinine Glucose POC Glucose 170 H 415 H 377 H Hemoglobin A1c Lactic Acid Calcium Phosphorus AST Alkaline Phosphatase NT-Pro-B Natriuret Pep Total Protein Albumin Urine WBC (Auto) Crossmatch 10/19/18 10/19/18 10/19/18 00:48 05:35 05:52 WBC RBC 2.84 L Hgb 7.7 L Hct 23.2 L MCH 27 L RDW 19.8 H Plt Count Lymph % (Auto) 11.0 L [place] % (Auto) Lymph # 1.1 L [place] # Eos # Baso # Seg Neutrophils % 78.5 H Seg Neuts % (Manual) Lymphocytes % (Manual) Seg Neutrophils # 8.1 H Seg Neutrophils # Man Lymphocytes # (Manual) PT INR APTT Heparin Anti-Xa Level POC ABG pH POC ABG pCO2 POC ABG pO2 Sodium Potassium Chloride Carbon Dioxide BUN Creatinine Glucose POC Glucose 308 H 116 H Hemoglobin A1c Lactic Acid Calcium Phosphorus AST Alkaline Phosphatase NT-Pro-B Natriuret Pep Total Protein Albumin Urine WBC (Auto) Crossmatch 10/19/18 10/19/18 10/19/18 05:52 07:12 09:41 WBC RBC Hgb 8.1 L Hct 24.6 L MCH RDW Plt Count Lymph % (Auto) [place] % (Auto) Lymph # [place] # Eos # Baso # Seg Neutrophils % Seg Neuts % (Manual) Lymphocytes % (Manual) Seg Neutrophils # Seg Neutrophils # Man Lymphocytes # (Manual) PT 18.1 H INR 1.40 H APTT Heparin Anti-Xa Level POC ABG pH POC ABG pCO2 POC ABG pO2 Sodium Potassium Chloride Carbon Dioxide BUN 21 H Creatinine 1.6 H Glucose 128 H POC Glucose Hemoglobin A1c Lactic Acid Calcium 7.7 L Phosphorus AST Alkaline Phosphatase NT-Pro-B Natriuret Pep Total Protein Albumin Urine WBC (Auto) Crossmatch 10/19/18 10/19/18 10/19/18 09:41 11:46 12:26 WBC RBC Hgb Hct MCH RDW Plt Count Lymph % (Auto) [place] % (Auto) Lymph # [place] # Eos # Baso # Seg Neutrophils % Seg Neuts % (Manual) Lymphocytes % (Manual) Seg Neutrophils # Seg Neutrophils # Man Lymphocytes # (Manual) PT 17.7 H INR 1.36 H APTT Heparin Anti-Xa Level 0.19 L POC ABG pH POC ABG pCO2 POC ABG pO2 Sodium Potassium Chloride Carbon Dioxide BUN Creatinine Glucose POC Glucose 212 H Hemoglobin A1c Lactic Acid Calcium Phosphorus AST Alkaline Phosphatase NT-Pro-B Natriuret Pep Total Protein Albumin Urine WBC (Auto) Crossmatch 10/19/18 10/19/18 10/19/18 16:12 19:56 22:09 WBC RBC Hgb Hct MCH RDW Plt Count Lymph % (Auto) [place] % (Auto) Lymph # [place] # Eos # Baso # Seg Neutrophils % Seg Neuts % (Manual) Lymphocytes % (Manual) Seg Neutrophils # Seg Neutrophils # Man Lymphocytes # (Manual) PT INR APTT Heparin Anti-Xa Level POC ABG pH 7.458 H POC ABG pCO2 POC ABG pO2 63 L Sodium Potassium Chloride Carbon Dioxide BUN Creatinine Glucose POC Glucose 260 H 216 H Hemoglobin A1c Lactic Acid Calcium Phosphorus AST Alkaline Phosphatase NT-Pro-B Natriuret Pep Total Protein Albumin Urine WBC (Auto) Crossmatch 10/20/18 10/20/18 10/20/18 03:00 03:00 03:00 WBC 14.8 H RBC 2.81 L Hgb 7.5 L Hct 23.1 L MCH 27 L RDW 20.0 H Plt Count Lymph % (Auto) 11.5 L [place] % (Auto) Lymph # [place] # 0.9 H Eos # Baso # Seg Neutrophils % 79.7 H Seg Neuts % (Manual) Lymphocytes % (Manual) Seg Neutrophils # 11.8 H Seg Neutrophils # Man Lymphocytes # (Manual) PT 16.9 H INR 1.29 H APTT Heparin Anti-Xa Level 0.24 L POC ABG pH POC ABG pCO2 POC ABG pO2 Sodium Potassium Chloride 97.8 L Carbon Dioxide BUN 20 H Creatinine 1.5 H Glucose 206 H POC Glucose Hemoglobin A1c Lactic Acid Calcium 7.8 L Phosphorus AST Alkaline Phosphatase NT-Pro-B Natriuret Pep Total Protein Albumin Urine WBC (Auto) Crossmatch 10/20/18 10/20/18 10/20/18 06:59 10:20 10:59 WBC RBC Hgb Hct MCH RDW Plt Count Lymph % (Auto) [place] % (Auto) Lymph # [place] # Eos # Baso # Seg Neutrophils % Seg Neuts % (Manual) Lymphocytes % (Manual) Seg Neutrophils # Seg Neutrophils # Man Lymphocytes # (Manual) PT 15.5 H INR 1.16 H APTT Heparin Anti-Xa Level < 0.10 L POC ABG pH POC ABG pCO2 POC ABG pO2 Sodium Potassium Chloride Carbon Dioxide BUN Creatinine Glucose POC Glucose 348 H 227 H Hemoglobin A1c Lactic Acid Calcium Phosphorus AST Alkaline Phosphatase NT-Pro-B Natriuret Pep Total Protein Albumin Urine WBC (Auto) Crossmatch 10/20/18 10/20/18 10/21/18 16:15 17:14 00:53 WBC RBC Hgb Hct MCH RDW Plt Count Lymph % (Auto) [place] % (Auto) Lymph # [place] # Eos # Baso # Seg Neutrophils % Seg Neuts % (Manual) Lymphocytes % (Manual) Seg Neutrophils # Seg Neutrophils # Man Lymphocytes # (Manual) PT INR APTT Heparin Anti-Xa Level 0.24 L POC ABG pH POC ABG pCO2 POC ABG pO2 Sodium Potassium Chloride Carbon Dioxide BUN Creatinine Glucose POC Glucose 279 H 136 H Hemoglobin A1c Lactic Acid Calcium Phosphorus AST Alkaline Phosphatase NT-Pro-B Natriuret Pep Total Protein Albumin Urine WBC (Auto) Crossmatch 10/21/18 10/21/18 10/21/18 05:45 05:45 05:45 WBC 15.8 H RBC 2.79 L Hgb 7.5 L Hct 22.9 L MCH 27 L RDW 19.8 H Plt Count Lymph % (Auto) 7.2 L [place] % (Auto) Lymph # 1.1 L [place] # Eos # Baso # Seg Neutrophils % 85.7 H Seg Neuts % (Manual) Lymphocytes % (Manual) Seg Neutrophils # 13.5 H Seg Neutrophils # Man Lymphocytes # (Manual) PT 16.9 H INR 1.29 H APTT Heparin Anti-Xa Level POC ABG pH POC ABG pCO2 POC ABG pO2 Sodium Potassium Chloride Carbon Dioxide BUN 18 H Creatinine 1.4 H Glucose 339 H POC Glucose Hemoglobin A1c Lactic Acid Calcium 8.3 L Phosphorus AST Alkaline Phosphatase NT-Pro-B Natriuret Pep Total Protein Albumin Urine WBC (Auto) Crossmatch 10/21/18 10/21/18 10/21/18 08:00 10:13 11:00 WBC RBC Hgb Hct MCH RDW Plt Count Lymph % (Auto) [place] % (Auto) Lymph # [place] # Eos # Baso # Seg Neutrophils % Seg Neuts % (Manual) Lymphocytes % (Manual) Seg Neutrophils # Seg Neutrophils # Man Lymphocytes # (Manual) PT INR APTT Heparin Anti-Xa Level POC ABG pH POC ABG pCO2 POC ABG pO2 Sodium Potassium Chloride Carbon Dioxide BUN Creatinine Glucose POC Glucose 398 H 295 H Hemoglobin A1c Lactic Acid Calcium Phosphorus AST Alkaline Phosphatase NT-Pro-B Natriuret Pep Total Protein Albumin Urine WBC (Auto) 125.0 H Crossmatch 10/21/18 10/21/1810/21/19 11:18 17:20 17:52 WBC RBC Hgb Hct MCH RDW Plt Count Lymph % (Auto) [place] % (Auto) Lymph # [place] # Eos # Baso # Seg Neutrophils % Seg Neuts % (Manual) Lymphocytes % (Manual) Seg Neutrophils # Seg Neutrophils # Man Lymphocytes # (Manual) PT 17.2 H INR 1.32 H APTT 40.0 H Heparin Anti-Xa Level POC ABG pH POC ABG pCO2 POC ABG pO2 Sodium Potassium Chloride Carbon Dioxide BUN Creatinine Glucose POC Glucose 235 H 271 H Hemoglobin A1c Lactic Acid Calcium Phosphorus AST Alkaline Phosphatase NT-Pro-B Natriuret Pep Total Protein Albumin Urine WBC (Auto) Crossmatch 10/21/18 10/22/18 10/22/18 23:41 00:47 04:39 WBC 16.1 H RBC 2.69 L Hgb 6.7 L 7.3 L Hct 19.8 L* 22.3 L MCH 27 L RDW 20.4 H Plt Count Lymph % (Auto) 6.9 L [place] % (Auto) Lymph # 1.1 L [place] # 1.0 H Eos # Baso # Seg Neutrophils % 85.3 H Seg Neuts % (Manual) Lymphocytes % (Manual) Seg Neutrophils # 13.8 H Seg Neutrophils # Man Lymphocytes # (Manual) PT INR APTT Heparin Anti-Xa Level POC ABG pH POC ABG pCO2 POC ABG pO2 Sodium Potassium Chloride Carbon Dioxide BUN Creatinine Glucose POC Glucose 157 H Hemoglobin A1c Lactic Acid Calcium Phosphorus AST Alkaline Phosphatase NT-Pro-B Natriuret Pep Total Protein Albumin Urine WBC (Auto) Crossmatch 10/22/18 10/22/18 10/22/18 04:39 04:39 04:39 WBC RBC Hgb Hct MCH RDW Plt Count Lymph % (Auto) [place] % (Auto) Lymph # [place] # Eos # Baso # Seg Neutrophils % Seg Neuts % (Manual) Lymphocytes % (Manual) Seg Neutrophils # Seg Neutrophils # Man Lymphocytes # (Manual) PT 20.3 H INR 1.62 H APTT Heparin Anti-Xa Level 0.12 L POC ABG pH POC ABG pCO2 POC ABG pO2 Sodium Potassium Chloride Carbon Dioxide BUN 20 H Creatinine 1.7 H Glucose 255 H POC Glucose Hemoglobin A1c Lactic Acid Calcium 8.1 L Phosphorus AST Alkaline Phosphatase NT-Pro-B Natriuret Pep Total Protein Albumin Urine WBC (Auto) Crossmatch See Detail 10/22/18 10/22/18 10/22/18 05:09 11:20 11:20 WBC RBC Hgb 7.4 L Hct 21.9 L MCH RDW Plt Count 457 H Lymph % (Auto) [place] % (Auto) Lymph # [place] # Eos # Baso # Seg Neutrophils % Seg Neuts % (Manual) Lymphocytes % (Manual) Seg Neutrophils # Seg Neutrophils # Man Lymphocytes # (Manual) PT 20.8 H INR 1.67 H APTT 71.0 H* Heparin Anti-Xa Level 0.20 L POC ABG pH POC ABG pCO2 POC ABG pO2 Sodium Potassium Chloride Carbon Dioxide BUN Creatinine Glucose POC Glucose 297 H Hemoglobin A1c Lactic Acid Calcium Phosphorus AST Alkaline Phosphatase NT-Pro-B Natriuret Pep Total Protein Albumin Urine WBC (Auto) Crossmatch 10/22/18 10/22/18 10/22/18 12:09 16:51 17:11 WBC RBC Hgb Hct MCH RDW Plt Count Lymph % (Auto) [place] % (Auto) Lymph # [place] # Eos # Baso # Seg Neutrophils % Seg Neuts % (Manual) Lymphocytes % (Manual) Seg Neutrophils # Seg Neutrophils # Man Lymphocytes # (Manual) PT INR APTT Heparin Anti-Xa Level POC ABG pH POC ABG pCO2 POC ABG pO2 Sodium Potassium Chloride Carbon Dioxide BUN Creatinine Glucose 115 H POC Glucose 125 H < 40 L Hemoglobin A1c Lactic Acid Calcium Phosphorus AST Alkaline Phosphatase NT-Pro-B Natriuret Pep Total Protein Albumin Urine WBC (Auto) Crossmatch 10/22/18 10/23/18 10/23/18 17:13 00:08 06:19 WBC RBC Hgb Hct MCH RDW Plt Count Lymph % (Auto) [place] % (Auto) Lymph # [place] # Eos # Baso # Seg Neutrophils % Seg Neuts % (Manual) Lymphocytes % (Manual) Seg Neutrophils # Seg Neutrophils # Man Lymphocytes # (Manual) PT INR APTT Heparin Anti-Xa Level POC ABG pH POC ABG pCO2 POC ABG pO2 Sodium Potassium Chloride Carbon Dioxide BUN Creatinine Glucose POC Glucose 126 H 192 H 249 H Hemoglobin A1c Lactic Acid Calcium Phosphorus AST Alkaline Phosphatase NT-Pro-B Natriuret Pep Total Protein Albumin Urine WBC (Auto) Crossmatch 10/23/18 10/23/18 10/23/18 07:21 07:21 07:21 WBC 14.4 H RBC 3.29 L Hgb 9.2 L Hct 27.6 L MCH RDW 20.5 H Plt Count 505 H Lymph % (Auto) 8.1 L [place] % (Auto) Lymph # [place] # 1.0 H Eos # 0.6 H Baso # Seg Neutrophils % 80.0 H Seg Neuts % (Manual) Lymphocytes % (Manual) Seg Neutrophils # 11.5 H Seg Neutrophils # Man Lymphocytes # (Manual) PT 21.6 H INR 1.75 H APTT Heparin Anti-Xa Level POC ABG pH POC ABG pCO2 POC ABG pO2 Sodium Potassium Chloride Carbon Dioxide BUN 18 H Creatinine 1.5 H Glucose 308 H POC Glucose Hemoglobin A1c Lactic Acid Calcium Phosphorus AST Alkaline Phosphatase NT-Pro-B Natriuret Pep Total Protein Albumin Urine WBC (Auto) Crossmatch 10/23/18 10/23/18 10/23/18 10:34 11:56 17:07 WBC RBC Hgb Hct MCH RDW Plt Count Lymph % (Auto) [place] % (Auto) Lymph # [place] # Eos # Baso # Seg Neutrophils % Seg Neuts % (Manual) Lymphocytes % (Manual) Seg Neutrophils # Seg Neutrophils # Man Lymphocytes # (Manual) PT INR APTT Heparin Anti-Xa Level POC ABG pH POC ABG pCO2 POC ABG pO2 Sodium Potassium Chloride Carbon Dioxide BUN Creatinine Glucose POC Glucose > 500 H 440 H 387 H Hemoglobin A1c Lactic Acid Calcium Phosphorus AST Alkaline Phosphatase NT-Pro-B Natriuret Pep Total Protein Albumin Urine WBC (Auto) Crossmatch 10/23/18 10/24/18 10/24/18 23:44 06:18 06:39 WBC RBC Hgb 7.9 L Hct 24.3 L MCH RDW Plt Count 522 H Lymph % (Auto) [place] % (Auto) Lymph # [place] # Eos # Baso # Seg Neutrophils % Seg Neuts % (Manual) Lymphocytes % (Manual) Seg Neutrophils # Seg Neutrophils # Man Lymphocytes # (Manual) PT INR APTT Heparin Anti-Xa Level POC ABG pH POC ABG pCO2 POC ABG pO2 Sodium Potassium Chloride Carbon Dioxide BUN Creatinine Glucose POC Glucose 172 H 154 H Hemoglobin A1c Lactic Acid Calcium Phosphorus AST Alkaline Phosphatase NT-Pro-B Natriuret Pep Total Protein Albumin Urine WBC (Auto) Crossmatch 10/24/18 10/24/18 10/24/18 08:05 11:12 18:50 WBC RBC Hgb Hct MCH RDW Plt Count Lymph % (Auto) [place] % (Auto) Lymph # [place] # Eos # Baso # Seg Neutrophils % Seg Neuts % (Manual) Lymphocytes % (Manual) Seg Neutrophils # Seg Neutrophils # Man Lymphocytes # (Manual) PT 20.5 H INR 1.64 H APTT Heparin Anti-Xa Level < 0.10 L POC ABG pH POC ABG pCO2 POC ABG pO2 Sodium Potassium Chloride Carbon Dioxide BUN Creatinine Glucose POC Glucose 203 H Hemoglobin A1c Lactic Acid Calcium Phosphorus AST Alkaline Phosphatase NT-Pro-B Natriuret Pep Total Protein Albumin Urine WBC (Auto) Crossmatch 10/25/18 10/25/18 10/25/18 01:29 06:00 06:00 WBC RBC Hgb 7.8 L Hct 23.9 L MCH RDW Plt Count 569 H Lymph % (Auto) [place] % (Auto) Lymph # [place] # Eos # Baso # Seg Neutrophils % Seg Neuts % (Manual) Lymphocytes % (Manual) Seg Neutrophils # Seg Neutrophils # Man Lymphocytes # (Manual) PT 15.6 H INR 1.17 H APTT Heparin Anti-Xa Level POC ABG pH POC ABG pCO2 POC ABG pO2 Sodium Potassium Chloride Carbon Dioxide BUN Creatinine Glucose POC Glucose 146 H Hemoglobin A1c Lactic Acid Calcium Phosphorus AST Alkaline Phosphatase NT-Pro-B Natriuret Pep Total Protein Albumin Urine WBC (Auto) Crossmatch 10/25/18 10/25/18 10/25/18 06:00 06:11 12:05 WBC RBC Hgb Hct MCH RDW Plt Count Lymph % (Auto) [place] % (Auto) Lymph # [place] # Eos # Baso # Seg Neutrophils % Seg Neuts % (Manual) Lymphocytes % (Manual) Seg Neutrophils # Seg Neutrophils # Man Lymphocytes # (Manual) PT INR APTT Heparin Anti-Xa Level 0.14 L POC ABG pH POC ABG pCO2 POC ABG pO2 Sodium Potassium Chloride Carbon Dioxide BUN Creatinine Glucose POC Glucose 246 H 283 H Hemoglobin A1c Lactic Acid Calcium Phosphorus AST Alkaline Phosphatase NT-Pro-B Natriuret Pep Total Protein Albumin Urine WBC (Auto) Crossmatch 10/25/18 10/25/18 10/26/18 17:53 21:20 04:59 WBC RBC Hgb 8.0 L Hct 24.4 L MCH RDW Plt Count Lymph % (Auto) [place] % (Auto) Lymph # [place] # Eos # Baso # Seg Neutrophils % Seg Neuts % (Manual) Lymphocytes % (Manual) Seg Neutrophils # Seg Neutrophils # Man Lymphocytes # (Manual) PT INR APTT Heparin Anti-Xa Level POC ABG pH POC ABG pCO2 POC ABG pO2 Sodium Potassium Chloride Carbon Dioxide BUN Creatinine Glucose POC Glucose 298 H 336 H Hemoglobin A1c Lactic Acid Calcium Phosphorus AST Alkaline Phosphatase NT-Pro-B Natriuret Pep Total Protein Albumin Urine WBC (Auto) Crossmatch 10/26/18 10/26/18 10/26/18 04:59 07:48 12:33 WBC RBC Hgb Hct MCH RDW Plt Count Lymph % (Auto) [place] % (Auto) Lymph # [place] # Eos # Baso # Seg Neutrophils % Seg Neuts % (Manual) Lymphocytes % (Manual) Seg Neutrophils # Seg Neutrophils # Man Lymphocytes # (Manual) PT INR APTT Heparin Anti-Xa Level 0.21 L 0.19 L POC ABG pH POC ABG pCO2 POC ABG pO2 Sodium Potassium Chloride Carbon Dioxide BUN Creatinine Glucose POC Glucose 339 H Hemoglobin A1c Lactic Acid Calcium Phosphorus AST Alkaline Phosphatase NT-Pro-B Natriuret Pep Total Protein Albumin Urine WBC (Auto) Crossmatch 10/26/18 10/26/18 10/26/18 15:49 15:54 17:36 WBC RBC Hgb Hct MCH RDW Plt Count Lymph % (Auto) [place] % (Auto) Lymph # [place] # Eos # Baso # Seg Neutrophils % Seg Neuts % (Manual) Lymphocytes % (Manual) Seg Neutrophils # Seg Neutrophils # Man Lymphocytes # (Manual) PT INR APTT Heparin Anti-Xa Level POC ABG pH POC ABG pCO2 POC ABG pO2 Sodium Potassium Chloride Carbon Dioxide BUN Creatinine Glucose 49 L POC Glucose < 40 L 226 H Hemoglobin A1c Lactic Acid Calcium Phosphorus AST Alkaline Phosphatase NT-Pro-B Natriuret Pep Total Protein Albumin Urine WBC (Auto) Crossmatch 10/26/18 10/26/18 10/27/18 19:42 21:08 03:00 WBC RBC Hgb 7.9 L Hct 23.8 L MCH RDW Plt Count 629 H Lymph % (Auto) [place] % (Auto) Lymph # [place] # Eos # Baso # Seg Neutrophils % Seg Neuts % (Manual) Lymphocytes % (Manual) Seg Neutrophils # Seg Neutrophils # Man Lymphocytes # (Manual) PT INR APTT Heparin Anti-Xa Level 0.19 L POC ABG pH POC ABG pCO2 POC ABG pO2 Sodium Potassium Chloride Carbon Dioxide BUN Creatinine Glucose POC Glucose 234 H Hemoglobin A1c Lactic Acid Calcium Phosphorus AST Alkaline Phosphatase NT-Pro-B Natriuret Pep Total Protein Albumin Urine WBC (Auto) Crossmatch 10/27/18 10/27/18 10/27/18 08:16 12:30 16:44 WBC RBC Hgb Hct MCH RDW Plt Count Lymph % (Auto) [place] % (Auto) Lymph # [place] # Eos # Baso # Seg Neutrophils % Seg Neuts % (Manual) Lymphocytes % (Manual) Seg Neutrophils # Seg Neutrophils # Man Lymphocytes # (Manual) PT INR APTT Heparin Anti-Xa Level POC ABG pH POC ABG pCO2 POC ABG pO2 Sodium Potassium Chloride Carbon Dioxide BUN Creatinine Glucose POC Glucose 181 H 287 H 339 H Hemoglobin A1c Lactic Acid Calcium Phosphorus AST Alkaline Phosphatase NT-Pro-B Natriuret Pep Total Protein Albumin Urine WBC (Auto) Crossmatch 10/27/18 10/28/18 10/28/18 21:09 03:57 03:57 WBC RBC Hgb 7.7 L Hct 23.5 L MCH RDW Plt Count Lymph % (Auto) [place] % (Auto) Lymph # [place] # Eos # Baso # Seg Neutrophils % Seg Neuts % (Manual) Lymphocytes % (Manual) Seg Neutrophils # Seg Neutrophils # Man Lymphocytes # (Manual) PT 15.1 H INR APTT Heparin Anti-Xa Level 0.29 L POC ABG pH POC ABG pCO2 POC ABG pO2 Sodium Potassium Chloride Carbon Dioxide BUN Creatinine Glucose POC Glucose 120 H Hemoglobin A1c Lactic Acid Calcium Phosphorus AST Alkaline Phosphatase NT-Pro-B Natriuret Pep Total Protein Albumin Urine WBC (Auto) Crossmatch 10/28/18 10/28/18 10/28/18 08:20 11:08 16:32 WBC RBC Hgb Hct MCH RDW Plt Count Lymph % (Auto) [place] % (Auto) Lymph # [place] # Eos # Baso # Seg Neutrophils % Seg Neuts % (Manual) Lymphocytes % (Manual) Seg Neutrophils # Seg Neutrophils # Man Lymphocytes # (Manual) PT INR APTT Heparin Anti-Xa Level POC ABG pH POC ABG pCO2 POC ABG pO2 Sodium Potassium Chloride Carbon Dioxide BUN Creatinine Glucose POC Glucose 308 H 371 H 115 H Hemoglobin A1c Lactic Acid Calcium Phosphorus AST Alkaline Phosphatase NT-Pro-B Natriuret Pep Total Protein Albumin Urine WBC (Auto) Crossmatch 10/28/18 10/29/18 10/29/18 22:01 07:06 07:06 WBC RBC Hgb 7.8 L Hct 23.8 L MCH RDW Plt Count 625 H Lymph % (Auto) [place] % (Auto) Lymph # [place] # Eos # Baso # Seg Neutrophils % Seg Neuts % (Manual) Lymphocytes % (Manual) Seg Neutrophils # Seg Neutrophils # Man Lymphocytes # (Manual) PT 15.4 H INR 1.15 H APTT Heparin Anti-Xa Level POC ABG pH POC ABG pCO2 POC ABG pO2 Sodium Potassium Chloride Carbon Dioxide BUN Creatinine Glucose POC Glucose 287 H Hemoglobin A1c Lactic Acid Calcium Phosphorus AST Alkaline Phosphatase NT-Pro-B Natriuret Pep Total Protein Albumin Urine WBC (Auto) Crossmatch 10/29/18 07:56 WBC RBC Hgb Hct MCH RDW Plt Count Lymph % (Auto) [place] % (Auto) Lymph # [place] # Eos # Baso # Seg Neutrophils % Seg Neuts % (Manual) Lymphocytes % (Manual) Seg Neutrophils # Seg Neutrophils # Man Lymphocytes # (Manual) PT INR APTT Heparin Anti-Xa Level POC ABG pH POC ABG pCO2 POC ABG pO2 Sodium Potassium Chloride Carbon Dioxide BUN Creatinine Glucose POC Glucose 199 H Hemoglobin A1c Lactic Acid Calcium Phosphorus AST Alkaline Phosphatase NT-Pro-B Natriuret Pep Total Protein Albumin Urine WBC (Auto) Crossmatch Allied health notes reviewed: nursing
--- NOTE | 2018-10-29 10:41 | Progress Note ---
Assessment and Plan Assessment and plan: 48 year old woman with history of coronary artery disease, status post cabbage, diabetes, hypertension who was brought to the emergency room for altered mental status. She was found to have hypoglycemia, she was also having convulsions at the time of admission. The patient was intubated, sp dextrose she was put on the ventilator she was found to have pneumonia and CHF flare and started on antibiotics. patient has history of MV replacement and was on anticoagulation. Pneumonia, severe sepsis - Patient was on IV antibiotics and completed on 10/13 per ID Acute hypoxic respiratory failure on MV >96 hrs Was intubated and on mechanical ventilation - patient was extubated on 10/13 -Weaned to room air on 10/19, status epilepticus; Seizures when most likely due to hypoglycemia -Treated with dextrose - neurology consult appreciated Acute on chronic systolic CHF EF 40%, dilated ventricles -cardiology consult appreciated - on PO lasix History of [facility] mitral valve replacement/hypercoaguable state/coagulopathy due to warfarin INR subtherapeutic, on heparin ggt INR is 1.15 and pharmacy is adjusting the dose of Coumadin I have discussed with Dr. 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, treated as type 1, uncontrolled, a1c 10.2 Continue insulins judiciously, brittle DM with episodes of hypoglycemia and hyperglycemia, labile glc Mazin upon ckd stage 3, vasomotor nephropathy and likely ATN from sepsis Nephrology input appreciated, avoid nephrotoxins, neph signed off on 10/15 acute metabolic encephalopathy - Resolved hypernatremia - Resolved Hyperkalemia - resolved with insulin and diuretics htn urgency; - Controlled - optimized bp meds Marijuana abuse; was counseled, preventive health counseling dvt ppx- chemical, dispo; to SARA with Lovenox bridge History Interval history: Patient was seen and evaluated this morning, patient was extubated on 10/12/18. Patient was alert and oriented. She said she is feeling better. Hospitalist Physical - Physical exam Narrative exam: Patient is not in cardiopulmonary distress. The patient appeared well nourished and normally developed. Vital signs as documented. Head exam is unremarkable. No scleral icterus . Neck is without jugular venous distension, thyromegaly, or carotid bruits. Lungs are clear to auscultation. Cardiac exam reveals regular rate and Rhythm. Abdominal exam reveals normal bowel sounds Extremities are nonedematous. 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 - Constitutional Vitals: Temp Pulse Resp BP Pulse Ox 98.7 F 91 H 18 142/85 97 10/29/18 05:46 10/29/18 09:02 10/29/18 05:46 10/29/18 09:02 10/28/18 21:14 General appearance: Present: other (intubated, eyes open, no purposeful response to commands) Results - Labs CBC & Chem 7: 10/29/18 07:06 10/26/18 15:54 Labs: Laboratory Last Values WBC 14.4 K/mm3 (4.5-11.0) H 10/23/18 07:21 RBC 3.29 M/mm3 (3.65-5.03) L 10/23/18 07:21 Hgb 7.8 gm/dl (10.1-14.3) L 10/29/18 07:06 Hct 23.8 % (30.3-42.9) L 10/29/18 07:06 MCV 84 fl (79-97) 10/23/18 07:21 MCH 28 pg (28-32) 10/23/18 07:21 MCHC 33 % (30-34) 10/23/18 07:21 RDW 20.5 % (13.2-15.2) H 10/23/18 07:21 Plt Count 625 K/mm3 (140-440) H 10/29/18 07:06 Lymph % (Auto) 8.1 % (13.4-35.0) L 10/23/18 07:21 [place] % (Auto) 7.3 % (0.0-7.3) 10/23/18 07:21 Eos % (Auto) 3.8 % (0.0-4.3) 10/23/18 07:21 Baso % (Auto) 0.8 % (0.0-1.8) 10/23/18 07:21 Lymph # 1.2 K/mm3 (1.2-5.4) 10/23/18 07:21 [place]acken # 1.0 K/mm3 (0.0-0.8) H 10/23/18 07:21 Eos # 0.6 K/mm3 (0.0-0.4) H 10/23/18 07:21 Baso # 0.1 K/mm3 (0.0-0.1) 10/23/18 07:21 Add Manual Diff Complete 10/17/18 05:00 Total Counted 100 10/17/18 05:00 Seg Neutrophils % 80.0 % (40.0-70.0) H 10/23/18 07:21 Seg Neuts % (Manual) 87.0 % (40.0-70.0) H 10/17/18 05:00 0 % 10/17/18 05:00 9.0 % (13.4-35.0) L 10/17/18 05:00 Reactive Lymphs % (Man) 0 % 10/17/18 05:00 2.0 % (0.0-7.3) 10/17/18 05:00 2.0 % (0.0-4.3) 10/17/18 05:00 0 % (0.0-1.8) 10/17/18 05:00 0 % 10/17/18 05:00 0 % 10/17/18 05:00 0 % 10/17/18 05:00 0 % 10/17/18 05:00 Nucleated RBC % Not Reportable 10/17/18 05:00 Seg Neutrophils # 11.5 K/mm3 (1.8-7.7) H 10/23/18 07:21 Seg Neutrophils # Man 10.1 K/mm3 (1.8-7.7) H 10/17/18 05:00 Band Neutrophils # 0.0 K/mm3 10/17/18 05:00 1.0 K/mm3 (1.2-5.4) L 10/17/18 05:00 Abs React Lymphs (Man) 0.0 K/mm3 10/17/18 05:00 0.2 K/mm3 (0.0-0.8) 10/17/18 05:00 0.2 K/mm3 (0.0-0.4) 10/17/18 05:00 0.0 K/mm3 (0.0-0.1) 10/17/18 05:00 0.0 K/mm3 10/17/18 05:00 0.0 K/mm3 10/17/18 05:00 0.0 K/mm3 10/17/18 05:00 Blast Cells # 0.0 K/mm3 10/17/18 05:00 WBC Morphology Not Reportable 10/17/18 05:00 Hypersegmented Neuts Not Reportable 10/17/18 05:00 Hyposegmented Neuts Not Reportable 10/17/18 05:00 Hypogranular Neuts Not Reportable 10/17/18 05:00 Not Reportable 10/17/18 05:00 Not Reportable 10/17/18 05:00 Not Reportable 10/17/18 05:00 Not Reportable 10/17/18 05:00 Not Reportable 10/17/18 05:00 Not Reportable 10/17/18 05:00 Consistent w auto 10/17/18 05:00 Not Reportable 10/17/18 05:00 Plt Clumps, EDTA Not Reportable 10/17/18 05:00 Not Reportable 10/17/18 05:00 Not Reportable 10/17/18 05:00 Not Reportable 10/17/18 05:00 Plt Morphology Comment Not Reportable 10/17/18 05:00 RBC Morphology Not Reportable 10/17/18 05:00 Dimorphic RBCs Not Reportable 10/17/18 05:00 Not Reportable 10/17/18 05:00 1+ 10/17/18 05:00 Few 10/17/18 05:00 1+ 10/17/18 05:00 Not Reportable 10/17/18 05:00 Rare 10/17/18 05:00 Not Reportable 10/17/18 05:00 Not Reportable 10/17/18 05:00 Not Reportable 10/17/18 05:00 Not Reportable 10/17/18 05:00 Not Reportable 10/17/18 05:00 Not Reportable 10/17/18 05:00 Not Reportable 10/17/18 05:00 Not Reportable 10/17/18 05:00 Not Reportable 10/17/18 05:00 Not Reportable 10/17/18 05:00 Not Reportable 10/17/18 05:00 Not Reportable 10/17/18 05:00 Not Reportable 10/17/18 05:00 Acanthocytes (Spur) Not Reportable 10/17/18 05:00 Rouleaux Not Reportable 10/17/18 05:00 Not Reportable 10/17/18 05:00 Not Reportable 10/17/18 05:00 Not Reportable 10/17/18 05:00 Not Reportable 10/17/18 05:00 Hem Pathologist Commnt No 10/17/18 05:00 PT 15.4 Sec. (12.2-14.9) H 10/29/18 07:06 INR 1.15 (0.87-1.13) H 10/29/18 07:06 APTT 71.0 Sec. (24.2-36.6) H* 10/22/18 11:20 Heparin Anti-Xa Level 0.45 U.I./ml (0.3-0.7) 10/29/18 07:06 POC ABG pH 7.458 (7.35-7.45) H 10/19/18 19:56 POC ABG pCO2 37.9 (35-45) 10/19/18 19:56 POC ABG pO2 63 (80-105) L 10/19/18 19:56 POC ABG HCO3 26.8 (22-26 mml/L) 10/19/18 19:56 POC ABG Total CO2 28 (23-27mmol/L) 10/19/18 19:56 POC ABG O2 Sat 93 10/19/18 19:56 POC ABG Base Excess 3 ((-2) - (+3)mmol/L) 10/19/18 19:56 2 % 10/19/18 19:56 Sodium 137 mmol/L (137-145) 10/23/18 07:21 Potassium 4.0 mmol/L (3.6-5.0) 10/23/18 07:21 Chloride 100.4 mmol/L (98-107) 10/23/18 07:21 Carbon Dioxide 23 mmol/L (22-30) 10/23/18 07:21 18 mmol/L 10/23/18 07:21 BUN 18 mg/dL (7-17) H 10/23/18 07:21 1.5 mg/dL (0.7-1.2) H 10/23/18 07:21 Estimated GFR 45 ml/min 10/23/18 07:21 12 % 10/23/18 07:21 Glucose 49 mg/dL (65-100) L 10/26/18 15:54 POC Glucose 199 (70-105) H 10/29/18 07:56 10.2 % (4-6) H 10/07/18 22:08 Lactic Acid 1.50 mmol/L (0.7-2.0) 10/08/18 17:09 Calcium 8.4 mg/dL (8.4-10.2) 10/23/18 07:21 Phosphorus 7.40 mg/dL (2.5-4.5) H 10/07/18 22:08 Magnesium 1.70 mg/dL (1.7-2.3) 10/18/18 20:20 0.60 mg/dL (0.1-1.2) 10/17/18 05:00 < 0.2 mg/dL (0-0.2) 10/17/18 05:00 0.4 mg/dL 10/17/18 05:00 AST 14 units/L (5-40) 10/17/18 05:00 ALT 8 units/L (7-56) 10/17/18 05:00 104 units/L (35-129) 10/17/18 05:00 40.0 umol/L (25-60) 10/07/18 02:43 < 0.010 ng/mL (0.00-0.029) 10/07/18 08:59 0.20 mg/dL (0.00-1.30) 10/07/18 14:55 NT-Pro-B Natriuret Pep 2865 pg/mL (0-450) H 10/09/18 03:20 5.4 g/dL (6.3-8.2) L 10/17/18 05:00 2.2 g/dL (3.9-5) L 10/17/18 05:00 0.7 % 10/17/18 05:00 Fay (Yellow) 10/21/18 11:00 Cloudy (Clear) 10/21/18 11:00 5.0 (5.0-7.0) 10/21/18 11:00 Ur Specific [place] 1.022 (1.003-1.030) 10/21/18 11:00 >500 mg/dL (Negative) 10/21/18 11:00 50 mg/dL (Negative) 10/21/18 11:00 Neg mg/dL (Negative) 10/21/18 11:00 Lg (Negative) 10/21/18 11:00 Neg (Negative) 10/21/18 11:00 Neg (Negative) 10/21/18 11:00 < 2.0 mg/dL (<2.0) 10/21/18 11:00 Ur Leukocyte Esterase Mod (Negative) 10/21/18 11:00 125.0 /HPF (0.0-6.0) H 10/21/18 11:00 131.0 /HPF (0.0-6.0) 10/21/18 11:00 U Epithel Cells (Auto) 2.0 /HPF (0-13.0) 10/21/18 11:00 2+ /HPF 10/21/18 11:00 Hyaline Casts 3 /LPF 10/07/18 02:34 Few /HPF 10/07/18 02:34 3+ /HPF 10/21/18 11:00 Presumptive negative 10/07/18 02:34 Presumptive negative 10/07/18 02:34 Ur Barbiturates Screen Presumptive negative 10/07/18 02:34 Ur Phencyclidine Scrn Presumptive negative 10/07/18 02:34 Ur Amphetamines Screen Presumptive negative 10/07/18 02:34 U Benzodiazepines Scrn Presumptive negative 10/07/18 02:34 Presumptive negative 10/07/18 02:34 U Marijuana (THC) Screen Presumptive positive 10/07/18 02:34 Disclamer 10/07/18 02:34 Blood Type O POSITIVE 10/22/18 04:39 Antibody Screen Negative 10/22/18 04:39 Crossmatch See Detail 10/22/18 04:39 Active Medications - Current Medications Current Medications: Generic Name Dose Route Start Last Admin Trade Name Freq PRN Reason Stop Dose Admin Acetaminophen 650 mg 10/07/18 04:59 10/20/18 12:56 Tylenol PO 650 mg Q4H PRN Administration Pain MILD(1-3)/Fever >100.5/[id number] Lipase/Protease/Amylase 1 each 10/08/18 10:[address] 10,500 Unit FEEDTUBE PRN PRN For Clogged Feeding Tube Dextrose 50 ml 10/07/18 20:42 10/26/18 16:06 D50w (25gm) Syringe IV 50 ml PRN PRN Administration Hypoglycemia Furosemide 40 mg 10/19/18 11:00 10/29/18 09:01 Lasix PO 40 mg QDAY ULI Administration Hydralazine HCl 10 mg 10/07/18 05:07 10/14/18 08:35 Apresoline IV 10 mg Q4H PRN Administration Blood Pressure Hydrophilic Ointment 1 applic 10/07/18 02:40 Vaseline Lip Therapy TP Q2HR PRN Dry Lips Heparin Sodium/Sodium Chloride 25,000 unit in 500 mls @ 15 mls/hr 10/21/18 18:00 10/28/18 12:35 Heparin/ 0.45% Nacl-25,000 Unit/500 Ml IV 1,100 units/hr TITRATE ULI 22 mls/hr Administration Protocol 750 UNITS/HR Insulin Glargine 8 units 10/24/18 10:00 10/29/18 09:00 Lantus SUB-Q 8 units DAILY ULI Administration Insulin Human Lispro 0 unit 10/25/18 11:30 10/29/18 08:57 Humalog SUB-Q 1 unit ACHS ULI Administration Protocol Lansoprazole 30 mg 10/16/18 22:00 10/29/18 09:01 Prevacid Solutab FEEDTUBE 30 mg BID ULI Administration Metoclopramide HCl 10 mg 10/11/18 13:00 10/12/18 19:32 Reglan IV 10 mg Q6HR PRN Administration Nausea And Vomiting Metoprolol Tartrate 12.5 mg 10/23/18 14:46 10/29/18 09:02 Lopressor PO 12.5 mg TID ULI Administration Multi-Ingred Cream/Lotion/Oil/Oint 1 applic 10/07/18 02:40 Artificial Tears Ophth Oint OU Q4HR PRN Dry Eye(s) Ondansetron HCl 4 mg 10/07/18 04:59 Zofran IV Q8H PRN N/V unrelieved by Kojo Quetiapine Fumarate 100 mg 10/09/18 22:00 10/28/18 21:17 Seroquel PO 100 mg QHS ULI Administration Simple Syrup 15 ml 10/08/18 10:00 Simple Syrup FEEDTUBE PRN PRN Hypoglycemia Simple Syrup 30 ml 10/08/18 10:00 10/09/18 01:09 Simple Syrup FEEDTUBE 30 ml PRN PRN Administration Hypoglycemia Sodium Bicarbonate 325 mg 10/08/18 10:00 Sodium Bicarbonate FEEDTUBE PRN PRN For Clogged Feeding Tube Sodium Chloride 10 ml 10/07/18 10:00 10/29/18 09:03 Sodium Chloride Flush Syringe 10 Ml IV Not Given BID ULI Sodium Chloride 10 ml 10/07/18 04:59 10/18/18 07:15 Sodium Chloride Flush Syringe 10 Ml IV 10 ml PRN PRN Administration LINE FLUSH Warfarin Sodium 10 mg 10/27/18 17:00 10/28/18 17:25 Coumadin PO 10 mg DAILY@[facility] Administration Warfarin Sodium 2.5 mg 10/29/18 17:00 Coumadin PO 10/29/18 17:01 DAILY@[facility] Nutrition/Malnutrition Assess - Dietary Evaluation Nutrition/Malnutrition Findings: Nutrition Notes Start: 10/07/18 12:17 Freq: Status: Active Protocol: Document 10/25/18 17:02 (Rec: 10/25/18 17:05 [email or web address]) Nutrition Notes Initial or Follow up Reassessment Current Diagnosis CKD (stage V CKD),Diabetes, Hypertension,Heart Failure Other Pertinent Diagnosis DKA, AMS Current Diet Consistent CHO Labs/Tests Reviewed Pertinent Medications Lasix Height 5 ft 2 in Weight 53 kg [place] Body Weight (kg) 50.00 BMI 21.3 Subjective/Other Information Pt stated that her appetite is good and that she eats all of her meals. Noted lunch at bedside w/100% eaten. Percent of energy/protein needs met: 100%/100% Burn Absent Trauma Absent #1 Nutrition Diagnosis Inadequate oral intake As Evidenced by Signs and Symptoms pt meeting 100% of calorie and protein needs Diagnosis Progress(for reassessment Resolved documentation) Is patient on ventilator? No Is Patient Ambulatory and/or Out of Bed No REE-([facility]-confined to bed) 1333.968 Calculation Used for Recommendations [facility] Additional Notes Pro needs 0.8-1g/k-55g/ day Fluid needs 1ml/kcal Nutrition Intervention Change Diet Order: Continue current Goal #1 Continue to meet at least 75% of calorie and protein needs via PO intakes Anticipated Discharge Needs: Consistent CHO diet Revisit per MD consult or patient Sign Off request:
[2018-10-29] MEDS: HEPARIN/ 0.45% NACL-25,000 UNIT/500 ML 25,000 UNIT/500 ML BAG IV SCH (14:22)
[2018-10-29 15:44] LABS: Calcium 8.3 mg/dL (8.4-10.2)
[2018-10-29] MEDS ORDERED: COUMADIN PO SCH (17:00)
[2018-10-29] MEDS: COUMADIN PO SCH (18:41)
[2018-10-29] MEDS: TYLENOL PO PRN (20:23)
[2018-10-30 05:52] LABS: Hemoglobin 7.9 gm/dl (10.1-14.3)
[2018-10-30 05:53] LABS: Hematocrit 23.8 % (30.3-42.9)
[2018-10-30 06:04] LABS: INR 1.36 (0.87-1.13)
--- NOTE | 2018-10-30 06:53 | Progress Note ---
Assessment and Plan Acute hypoxemic respiratory failure, s/p mechanical ventilatory support. Symptomatic hypoglycemia. Seizures, possibly related to the hypoglycemia. Acute encephalopathy, toxic metabolic. Mild Hyponatremia Hyperkalemia s/p CABG with mechanical valve History of cardiomyopathy. (EF 40%) Right pleural effusion with infiltrate- probable aspiration History of diabetes. Hypertension. Subtherapeutic INR -Wean supplemental oxygen to keep O2 sats 88-90% -PRN ABGs/CXR -Heart failure measures -Monitor renal indices closely -Avoid nephrotoxic agents, adjust all medications for CrCL -Strict intake and output monitoring -VTE prophylaxis- anticoagulated. Has a mechanical valve Coumadin, daily PT/INR, goal INR is 2.5-3.5 Falls precautions Antibiotics, completed course Supportive transfusions as indicated -Accuchecks with glycemic control. Target glucose of 140-180 mg/dL -Bronchodilators with pulmonary hygiene per RT -Maintenance of sleep -wake cycle -Influenza and pneumonia vaccination per protocol -PT/OT as tolerated -Discharge planning -Discussed with hospitalist service Subjective Date of service: 10/30/18 Principal diagnosis: Ac hypoxemic resp failure; Seizures (?hypoglycemic); Ac encephalopathy(T/M) Interval history: Patient is seen today for: Acute hypoxemic respiratory failure, s/p mechanical ventilatory support; Symptomatic hypoglycemia; Seizures, possibly related to the hypoglycemia; Acute encephalopathy, toxic metabolic; Mild Hyponatremia; History of cardiomyopathy. (EF 40%) Seen and examined at bedside; 24hour events reviewed; nursing and respiratory care staff consulted; no adverse overnight events reported to me; no fevers,no bleeding , no shortness of breath, no chest pain. On supplemental oxygen at 2L via [place] . No nausea or vomiting Feeling better, ambulating in the room. Appetite is good Objective Vital Signs - 12hr 10/29/18 10/29/18 10/29/18 19:08 20:00 20:23 Temperature 98.7 F Pulse Rate 89 Pulse Rate [ 92 H Apical] Respiratory 20 18 18 Rate Respiratory 18 Rate [ Generalized] Blood Pressure 159/94 O2 Sat by Pulse 98 Oximetry 10/29/18 10/30/18 21:23 05:30 Temperature 97.6 F Pulse Rate 81 Pulse Rate [ Apical] Respiratory 18 16 Rate Respiratory Rate [ Generalized] Blood Pressure 146/87 O2 Sat by Pulse 97 Oximetry Constitutional: no acute distress, alert Eyes: non-icteric ENT: oropharynx moist Neck: supple, no lymphadenopathy, no JVD Effort: normal, mildly labored Ascultation: Bilateral: clear, diminished breath sounds (bases), rales Percussion: Right: dull (base), Bilateral: not dull Cardiovascular: regular rate and rhythm, other (+ metalic valve click) Gastrointestinal: normoactive bowel sounds, soft, non-tender, non-distended, other (No HSM) Integumentary: normal Extremities: no cyanosis, no edema, pulses normal, no ischemia or petechiae Neurologic: normal mental status, non-focal exam (grossly), pupils equal and round, CN II-XII normal, motor strength normal and Psychiatric: mood appropriate, affect normal CBC and BMP: 10/30/18 05:04 10/29/18 15:19 ABG, PT/INR, D-dimer: ABG POC ABG pH 7.458 (7.35-7.45) H 10/19/18 19:56 POC ABG pCO2 37.9 (35-45) 10/19/18 19:56 POC ABG pO2 63 (80-105) L 10/19/18 19:56 POC ABG HCO3 26.8 (22-26 mml/L) 10/19/18 19:56 POC ABG Total CO2 28 (23-27mmol/L) 10/19/18 19:56 POC ABG O2 Sat 93 10/19/18 19:56 PT/INR, D-dimer PT 17.7 Sec. (12.2-14.9) H 10/30/18 04:59 INR 1.36 (0.87-1.13) H 10/30/18 04:59 Abnormal lab findings: Abnormal Labs 10/07/18 10/07/18 10/07/18 02:20 02:43 02:43 WBC RBC Hgb Hct MCH 25 L RDW 21.5 H Plt Count Lymph % (Auto) [place] % (Auto) Lymph # 0.9 L [place] # Eos # Baso # Seg Neutrophils % 78.4 H Seg Neuts % (Manual) Lymphocytes % (Manual) Seg Neutrophils # Seg Neutrophils # Man Lymphocytes # (Manual) PT INR APTT Heparin Anti-Xa Level POC ABG pH POC ABG pCO2 POC ABG pO2 Sodium Potassium Chloride 108.0 H Carbon Dioxide 21 L BUN Creatinine 1.5 H Glucose 115 H POC Glucose 136 H Hemoglobin A1c Lactic Acid Calcium Phosphorus AST 51 H Alkaline Phosphatase 257 H NT-Pro-B Natriuret Pep Total Protein Albumin Urine WBC (Auto) Crossmatch 10/07/18 10/07/18 10/07/18 02:43 04:32 05:12 WBC RBC Hgb Hct MCH RDW Plt Count Lymph % (Auto) [place] % (Auto) Lymph # [place] # Eos # Baso # Seg Neutrophils % Seg Neuts % (Manual) Lymphocytes % (Manual) Seg Neutrophils # Seg Neutrophils # Man Lymphocytes # (Manual) PT 25.4 H INR 2.14 H APTT Heparin Anti-Xa Level POC ABG pH POC ABG pCO2 33.6 L POC ABG pO2 69 L Sodium Potassium Chloride Carbon Dioxide BUN Creatinine Glucose POC Glucose Hemoglobin A1c Lactic Acid 2.40 H* Calcium Phosphorus AST Alkaline Phosphatase NT-Pro-B Natriuret Pep Total Protein Albumin Urine WBC (Auto) Crossmatch 10/07/18 10/07/18 10/07/18 06:28 18:39 20:26 WBC RBC Hgb Hct MCH RDW Plt Count Lymph % (Auto) [place] % (Auto) Lymph # [place] # Eos # Baso # Seg Neutrophils % Seg Neuts % (Manual) Lymphocytes % (Manual) Seg Neutrophils # Seg Neutrophils # Man Lymphocytes # (Manual) PT INR APTT Heparin Anti-Xa Level POC ABG pH POC ABG pCO2 POC ABG pO2 Sodium Potassium Chloride Carbon Dioxide BUN Creatinine Glucose POC Glucose 164 H 440 H > 500 H Hemoglobin A1c Lactic Acid Calcium Phosphorus AST Alkaline Phosphatase NT-Pro-B Natriuret Pep Total Protein Albumin Urine WBC (Auto) Crossmatch 10/07/18 10/07/18 10/07/18 20:28 21:53 22:08 WBC RBC Hgb Hct MCH RDW Plt Count Lymph % (Auto) [place] % (Auto) Lymph # [place] # Eos # Baso # Seg Neutrophils % Seg Neuts % (Manual) Lymphocytes % (Manual) Seg Neutrophils # Seg Neutrophils # Man Lymphocytes # (Manual) PT INR APTT Heparin Anti-Xa Level POC ABG pH POC ABG pCO2 POC ABG pO2 Sodium 136 L D Potassium 6.4 H* D Chloride Carbon Dioxide 10 L D BUN 30 H Creatinine 2.0 H Glucose 544 H* POC Glucose 483 H > 500 H Hemoglobin A1c Lactic Acid Calcium 7.0 L D Phosphorus AST Alkaline Phosphatase NT-Pro-B Natriuret Pep Total Protein Albumin Urine WBC (Auto) Crossmatch 10/07/18 10/07/18 10/07/18 22:08 22:08 22:56 WBC RBC Hgb Hct MCH RDW Plt Count Lymph % (Auto) [place] % (Auto) Lymph # [place] # Eos # Baso # Seg Neutrophils % Seg Neuts % (Manual) Lymphocytes % (Manual) Seg Neutrophils # Seg Neutrophils # Man Lymphocytes # (Manual) PT INR APTT Heparin Anti-Xa Level POC ABG pH POC ABG pCO2 POC ABG pO2 Sodium Potassium Chloride Carbon Dioxide BUN Creatinine Glucose POC Glucose 462 H Hemoglobin A1c 10.2 H Lactic Acid Calcium Phosphorus 7.40 H AST Alkaline Phosphatase NT-Pro-B Natriuret Pep Total Protein Albumin Urine WBC (Auto) Crossmatch 10/07/18 10/08/18 10/08/18 23:39 00:58 02:09 WBC RBC Hgb Hct MCH RDW Plt Count Lymph % (Auto) [place] % (Auto) Lymph # [place] # Eos # Baso # Seg Neutrophils % Seg Neuts % (Manual) Lymphocytes % (Manual) Seg Neutrophils # Seg Neutrophils # Man Lymphocytes # (Manual) PT INR APTT Heparin Anti-Xa Level POC ABG pH POC ABG pCO2 POC ABG pO2 Sodium Potassium Chloride Carbon Dioxide BUN Creatinine Glucose POC Glucose 396 H 375 H 285 H Hemoglobin A1c Lactic Acid Calcium Phosphorus AST Alkaline Phosphatase NT-Pro-B Natriuret Pep Total Protein Albumin Urine WBC (Auto) Crossmatch 10/08/18 10/08/18 10/08/18 03:10 03:33 04:05 WBC RBC Hgb Hct MCH RDW Plt Count Lymph % (Auto) [place] % (Auto) Lymph # [place] # Eos # Baso # Seg Neutrophils % Seg Neuts % (Manual) Lymphocytes % (Manual) Seg Neutrophils # Seg Neutrophils # Man Lymphocytes # (Manual) PT INR APTT Heparin Anti-Xa Level POC ABG pH 7.243 L POC ABG pCO2 33.8 L POC ABG pO2 126 H Sodium Potassium 5.3 H Chloride 110.7 H Carbon Dioxide 14 L BUN 33 H Creatinine 2.2 H Glucose 193 H POC Glucose 251 H Hemoglobin A1c Lactic Acid Calcium 7.0 L Phosphorus AST Alkaline Phosphatase 155 H NT-Pro-B Natriuret Pep Total Protein 5.2 L D Albumin 2.6 L Urine WBC (Auto) Crossmatch 10/08/18 10/08/18 10/08/18 04:05 04:05 04:09 WBC 11.8 H RBC 3.32 L Hgb 8.3 L Hct 27.5 L D MCH 25 L RDW 22.0 H Plt Count Lymph % (Auto) 6.8 L [place] % (Auto) 12.0 H Lymph # 0.8 L [place] # 1.4 H Eos # Baso # Seg Neutrophils % 80.6 H Seg Neuts % (Manual) Lymphocytes % (Manual) Seg Neutrophils # 9.5 H Seg Neutrophils # Man Lymphocytes # (Manual) PT INR APTT Heparin Anti-Xa Level POC ABG pH POC ABG pCO2 POC ABG pO2 Sodium Potassium Chloride Carbon Dioxide BUN Creatinine Glucose POC Glucose 175 H Hemoglobin A1c Lactic Acid 3.70 H* Calcium Phosphorus AST Alkaline Phosphatase NT-Pro-B Natriuret Pep Total Protein Albumin Urine WBC (Auto) Crossmatch 10/08/18 10/08/18 10/08/18 05:07 06:05 07:14 WBC RBC Hgb Hct MCH RDW Plt Count Lymph % (Auto) [place] % (Auto) Lymph # [place] # Eos # Baso # Seg Neutrophils % Seg Neuts % (Manual) Lymphocytes % (Manual) Seg Neutrophils # Seg Neutrophils # Man Lymphocytes # (Manual) PT INR APTT Heparin Anti-Xa Level POC ABG pH POC ABG pCO2 POC ABG pO2 Sodium Potassium Chloride Carbon Dioxide BUN Creatinine Glucose POC Glucose 125 H 122 H 147 H Hemoglobin A1c Lactic Acid Calcium Phosphorus AST Alkaline Phosphatase NT-Pro-B Natriuret Pep Total Protein Albumin Urine WBC (Auto) Crossmatch 10/08/18 10/08/18 10/08/18 07:22 08:09 08:47 WBC RBC Hgb Hct MCH RDW Plt Count Lymph % (Auto) [place] % (Auto) Lymph # [place] # Eos # Baso # Seg Neutrophils % Seg Neuts % (Manual) Lymphocytes % (Manual) Seg Neutrophils # Seg Neutrophils # Man Lymphocytes # (Manual) PT INR APTT Heparin Anti-Xa Level POC ABG pH POC ABG pCO2 POC ABG pO2 Sodium Potassium 5.2 H Chloride 112.4 H Carbon Dioxide 17 L BUN 32 H Creatinine 2.1 H Glucose 148 H POC Glucose 134 H 148 H Hemoglobin A1c Lactic Acid Calcium 6.6 L Phosphorus AST Alkaline Phosphatase NT-Pro-B Natriuret Pep Total Protein Albumin Urine WBC (Auto) Crossmatch 10/08/18 10/08/18 10/08/18 10:21 13:29 14:21 WBC RBC Hgb Hct MCH RDW Plt Count Lymph % (Auto) [place] % (Auto) Lymph # [place] # Eos # Baso # Seg Neutrophils % Seg Neuts % (Manual) Lymphocytes % (Manual) Seg Neutrophils # Seg Neutrophils # Man Lymphocytes # (Manual) PT INR APTT Heparin Anti-Xa Level POC ABG pH POC ABG pCO2 POC ABG pO2 Sodium Potassium Chloride Carbon Dioxide BUN Creatinine Glucose POC Glucose 115 H 109 H 118 H Hemoglobin A1c Lactic Acid Calcium Phosphorus AST Alkaline Phosphatase NT-Pro-B Natriuret Pep Total Protein Albumin Urine WBC (Auto) Crossmatch 10/08/18 10/08/18 10/08/18 15:27 17:00 17:00 WBC 11.3 H RBC 3.21 L Hgb 7.9 L Hct 25.7 L MCH 25 L RDW 21.8 H Plt Count Lymph % (Auto) 8.5 L [place] % (Auto) 7.7 H Lymph # 1.0 L [place] # 0.9 H Eos # Baso # Seg Neutrophils % 82.8 H Seg Neuts % (Manual) Lymphocytes % (Manual) Seg Neutrophils # 9.3 H Seg Neutrophils # Man Lymphocytes # (Manual) PT INR APTT Heparin Anti-Xa Level POC ABG pH POC ABG pCO2 POC ABG pO2 Sodium Potassium Chloride Carbon Dioxide BUN Creatinine Glucose POC Glucose 129 H Hemoglobin A1c Lactic Acid Calcium Phosphorus AST Alkaline Phosphatase NT-Pro-B Natriuret Pep 3097 H Total Protein Albumin Urine WBC (Auto) Crossmatch 10/08/18 10/08/18 10/08/18 17:07 17:12 18:22 WBC RBC Hgb Hct MCH RDW Plt Count Lymph % (Auto) [place] % (Auto) Lymph # [place] # Eos # Baso # Seg Neutrophils % Seg Neuts % (Manual) Lymphocytes % (Manual) Seg Neutrophils # Seg Neutrophils # Man Lymphocytes # (Manual) PT INR APTT Heparin Anti-Xa Level POC ABG pH 7.337 L POC ABG pCO2 32.0 L POC ABG pO2 130 H Sodium Potassium Chloride 115.5 H Carbon Dioxide 17 L BUN 30 H Creatinine 1.9 H Glucose 103 H POC Glucose 119 H Hemoglobin A1c Lactic Acid Calcium 6.9 L Phosphorus AST Alkaline Phosphatase NT-Pro-B Natriuret Pep Total Protein Albumin Urine WBC (Auto) Crossmatch 10/08/18 10/08/18 10/09/18 20:09 20:57 01:10 WBC RBC Hgb Hct MCH RDW Plt Count Lymph % (Auto) [place] % (Auto) Lymph # [place] # Eos # Baso # Seg Neutrophils % Seg Neuts % (Manual) Lymphocytes % (Manual) Seg Neutrophils # Seg Neutrophils # Man Lymphocytes # (Manual) PT INR APTT Heparin Anti-Xa Level POC ABG pH POC ABG pCO2 POC ABG pO2 Sodium Potassium Chloride 114.3 H 113.7 H Carbon Dioxide 15 L 14 L BUN 29 H 29 H Creatinine 2.1 H 2.0 H Glucose 132 H 39 L* POC Glucose 150 H Hemoglobin A1c Lactic Acid Calcium 6.7 L 6.9 L Phosphorus AST Alkaline Phosphatase NT-Pro-B Natriuret Pep Total Protein Albumin Urine WBC (Auto) Crossmatch 10/09/18 10/09/18 10/09/18 01:10 01:43 03:20 WBC RBC Hgb Hct MCH RDW Plt Count Lymph % (Auto) [place] % (Auto) Lymph # [place] # Eos # Baso # Seg Neutrophils % Seg Neuts % (Manual) Lymphocytes % (Manual) Seg Neutrophils # Seg Neutrophils # Man Lymphocytes # (Manual) PT INR APTT Heparin Anti-Xa Level POC ABG pH POC ABG pCO2 POC ABG pO2 Sodium Potassium Chloride Carbon Dioxide BUN Creatinine Glucose POC Glucose < 40 L < 40 L Hemoglobin A1c Lactic Acid Calcium Phosphorus AST Alkaline Phosphatase NT-Pro-B Natriuret Pep 2865 H Total Protein Albumin Urine WBC (Auto) Crossmatch 10/09/18 10/09/18 10/09/18 04:23 05:03 05:25 WBC RBC Hgb Hct MCH RDW Plt Count Lymph % (Auto) [place] % (Auto) Lymph # [place] # Eos # Baso # Seg Neutrophils % Seg Neuts % (Manual) Lymphocytes % (Manual) Seg Neutrophils # Seg Neutrophils # Man Lymphocytes # (Manual) PT INR APTT Heparin Anti-Xa Level POC ABG pH POC ABG pCO2 30.6 L 32.3 L POC ABG pO2 118 H Sodium Potassium Chloride Carbon Dioxide BUN Creatinine Glucose POC Glucose 148 H Hemoglobin A1c Lactic Acid Calcium Phosphorus AST Alkaline Phosphatase NT-Pro-B Natriuret Pep Total Protein Albumin Urine WBC (Auto) Crossmatch 10/09/18 10/09/18 10/09/18 06:00 08:34 09:58 WBC RBC Hgb Hct MCH RDW Plt Count Lymph % (Auto) [place] % (Auto) Lymph # [place] # Eos # Baso # Seg Neutrophils % Seg Neuts % (Manual) Lymphocytes % (Manual) Seg Neutrophils # Seg Neutrophils # Man Lymphocytes # (Manual) PT INR APTT Heparin Anti-Xa Level POC ABG pH POC ABG pCO2 POC ABG pO2 Sodium Potassium Chloride Carbon Dioxide BUN Creatinine Glucose POC Glucose 173 H 196 H 183 H Hemoglobin A1c Lactic Acid Calcium Phosphorus AST Alkaline Phosphatase NT-Pro-B Natriuret Pep Total Protein Albumin Urine WBC (Auto) Crossmatch 10/09/18 10/09/18 10/09/18 12:25 12:46 18:16 WBC RBC Hgb Hct MCH RDW Plt Count Lymph % (Auto) [place] % (Auto) Lymph # [place] # Eos # Baso # Seg Neutrophils % Seg Neuts % (Manual) Lymphocytes % (Manual) Seg Neutrophils # Seg Neutrophils # Man Lymphocytes # (Manual) PT INR APTT Heparin Anti-Xa Level POC ABG pH POC ABG pCO2 POC ABG pO2 Sodium Potassium Chloride 110.3 H Carbon Dioxide 16 L BUN 24 H Creatinine 1.8 H Glucose 207 H POC Glucose 208 H 177 H Hemoglobin A1c Lactic Acid Calcium 6.9 L Phosphorus AST Alkaline Phosphatase NT-Pro-B Natriuret Pep Total Protein Albumin Urine WBC (Auto) Crossmatch 10/09/18 10/10/18 10/10/18 21:11 00:11 05:41 WBC RBC Hgb Hct MCH RDW Plt Count Lymph % (Auto) [place] % (Auto) Lymph # [place] # Eos # Baso # Seg Neutrophils % Seg Neuts % (Manual) Lymphocytes % (Manual) Seg Neutrophils # Seg Neutrophils # Man Lymphocytes # (Manual) PT INR APTT Heparin Anti-Xa Level POC ABG pH POC ABG pCO2 POC ABG pO2 Sodium Potassium Chloride Carbon Dioxide BUN Creatinine Glucose POC Glucose 124 H 156 H 42 L Hemoglobin A1c Lactic Acid Calcium Phosphorus AST Alkaline Phosphatase NT-Pro-B Natriuret Pep Total Protein Albumin Urine WBC (Auto) Crossmatch 10/10/18 10/10/18 10/10/18 05:45 07:28 12:07 WBC RBC Hgb Hct MCH RDW Plt Count Lymph % (Auto) [place] % (Auto) Lymph # [place] # Eos # Baso # Seg Neutrophils % Seg Neuts % (Manual) Lymphocytes % (Manual) Seg Neutrophils # Seg Neutrophils # Man Lymphocytes # (Manual) PT INR APTT Heparin Anti-Xa Level POC ABG pH POC ABG pCO2 POC ABG pO2 Sodium 146 H D Potassium Chloride 111.2 H Carbon Dioxide BUN 21 H Creatinine 1.8 H Glucose 44 L POC Glucose 114 H 49 L Hemoglobin A1c Lactic Acid Calcium 7.4 L Phosphorus AST Alkaline Phosphatase NT-Pro-B Natriuret Pep Total Protein Albumin Urine WBC (Auto) Crossmatch 10/10/18 10/10/18 10/10/18 12:37 18:02 20:47 WBC RBC Hgb Hct MCH RDW Plt Count Lymph % (Auto) [place] % (Auto) Lymph # [place] # Eos # Baso # Seg Neutrophils % Seg Neuts % (Manual) Lymphocytes % (Manual) Seg Neutrophils # Seg Neutrophils # Man Lymphocytes # (Manual) PT INR APTT Heparin Anti-Xa Level POC ABG pH POC ABG pCO2 POC ABG pO2 Sodium Potassium Chloride Carbon Dioxide BUN Creatinine Glucose POC Glucose 142 H 49 L 162 H Hemoglobin A1c Lactic Acid Calcium Phosphorus AST Alkaline Phosphatase NT-Pro-B Natriuret Pep Total Protein Albumin Urine WBC (Auto) Crossmatch 10/10/18 10/10/18 10/10/18 21:45 22:19 23:50 WBC RBC Hgb Hct MCH RDW Plt Count Lymph % (Auto) [place] % (Auto) Lymph # [place] # Eos # Baso # Seg Neutrophils % Seg Neuts % (Manual) Lymphocytes % (Manual) Seg Neutrophils # Seg Neutrophils # Man Lymphocytes # (Manual) PT INR APTT Heparin Anti-Xa Level POC ABG pH 7.334 L POC ABG pCO2 47.0 H POC ABG pO2 53 L 79 L Sodium Potassium Chloride Carbon Dioxide BUN Creatinine Glucose POC Glucose 185 H Hemoglobin A1c Lactic Acid Calcium Phosphorus AST Alkaline Phosphatase NT-Pro-B Natriuret Pep Total Protein Albumin Urine WBC (Auto) Crossmatch 10/11/18 10/11/18 10/11/18 05:00 06:41 07:17 WBC RBC Hgb Hct MCH RDW Plt Count Lymph % (Auto) [place] % (Auto) Lymph # [place] # Eos # Baso # Seg Neutrophils % Seg Neuts % (Manual) Lymphocytes % (Manual) Seg Neutrophils # Seg Neutrophils # Man Lymphocytes # (Manual) PT INR APTT Heparin Anti-Xa Level POC ABG pH POC ABG pCO2 POC ABG pO2 Sodium Potassium Chloride Carbon Dioxide BUN Creatinine 1.7 H Glucose 43 L POC Glucose 48 L 129 H Hemoglobin A1c Lactic Acid Calcium 7.7 L Phosphorus AST Alkaline Phosphatase NT-Pro-B Natriuret Pep Total Protein Albumin Urine WBC (Auto) Crossmatch 10/11/18 10/11/18 10/11/18 11:14 13:32 14:25 WBC RBC 3.32 L Hgb 8.2 L Hct 26.4 L MCH 25 L RDW 21.6 H Plt Count Lymph % (Auto) [place] % (Auto) Lymph # [place] # Eos # Baso # Seg Neutrophils % Seg Neuts % (Manual) Lymphocytes % (Manual) Seg Neutrophils # Seg Neutrophils # Man Lymphocytes # (Manual) PT 21.7 H INR 1.76 H APTT 50.5 H Heparin Anti-Xa Level POC ABG pH POC ABG pCO2 POC ABG pO2 Sodium Potassium Chloride Carbon Dioxide BUN Creatinine Glucose POC Glucose 138 H Hemoglobin A1c Lactic Acid Calcium Phosphorus AST Alkaline Phosphatase NT-Pro-B Natriuret Pep Total Protein Albumin Urine WBC (Auto) Crossmatch 10/11/18 10/11/18 10/11/18 14:25 15:41 17:31 WBC RBC Hgb Hct MCH RDW Plt Count Lymph % (Auto) [place] % (Auto) Lymph # [place] # Eos # Baso # Seg Neutrophils % Seg Neuts % (Manual) Lymphocytes % (Manual) Seg Neutrophils # Seg Neutrophils # Man Lymphocytes # (Manual) PT 20.6 H INR 1.65 H APTT 54.9 H Heparin Anti-Xa Level POC ABG pH POC ABG pCO2 POC ABG pO2 53 L Sodium Potassium Chloride Carbon Dioxide BUN Creatinine Glucose POC Glucose 133 H Hemoglobin A1c Lactic Acid Calcium Phosphorus AST Alkaline Phosphatase NT-Pro-B Natriuret Pep Total Protein Albumin Urine WBC (Auto) Crossmatch 10/12/18 10/12/18 10/12/18 00:30 03:56 04:25 WBC RBC Hgb Hct MCH RDW Plt Count Lymph % (Auto) [place] % (Auto) Lymph # [place] # Eos # Baso # Seg Neutrophils % Seg Neuts % (Manual) Lymphocytes % (Manual) Seg Neutrophils # Seg Neutrophils # Man Lymphocytes # (Manual) PT INR APTT Heparin Anti-Xa Level POC ABG pH 7.514 H POC ABG pCO2 31.2 L POC ABG pO2 Sodium Potassium Chloride Carbon Dioxide BUN Creatinine 1.6 H Glucose 287 H POC Glucose 353 H Hemoglobin A1c Lactic Acid Calcium 8.0 L Phosphorus AST Alkaline Phosphatase NT-Pro-B Natriuret Pep Total Protein Albumin Urine WBC (Auto) Crossmatch 10/12/18 10/12/18 10/12/18 04:49 12:13 17:53 WBC RBC Hgb Hct MCH RDW Plt Count Lymph % (Auto) [place] % (Auto) Lymph # [place] # Eos # Baso # Seg Neutrophils % Seg Neuts % (Manual) Lymphocytes % (Manual) Seg Neutrophils # Seg Neutrophils # Man Lymphocytes # (Manual) PT INR APTT Heparin Anti-Xa Level POC ABG pH POC ABG pCO2 POC ABG pO2 Sodium Potassium Chloride Carbon Dioxide BUN Creatinine Glucose POC Glucose 297 H 290 H 211 H Hemoglobin A1c Lactic Acid Calcium Phosphorus AST Alkaline Phosphatase NT-Pro-B Natriuret Pep Total Protein Albumin Urine WBC (Auto) Crossmatch 10/12/18 10/12/18 10/13/18 18:57 21:35 04:50 WBC 11.8 H RBC 3.08 L Hgb 7.4 L Hct 24.2 L MCH 24 L RDW 21.5 H Plt Count Lymph % (Auto) [place] % (Auto) Lymph # [place] # Eos # Baso # Seg Neutrophils % Seg Neuts % (Manual) Lymphocytes % (Manual) Seg Neutrophils # Seg Neutrophils # Man Lymphocytes # (Manual) PT INR APTT Heparin Anti-Xa Level 1.74 H POC ABG pH 7.497 H POC ABG pCO2 33.2 L POC ABG pO2 71 L Sodium Potassium Chloride Carbon Dioxide BUN Creatinine Glucose POC Glucose Hemoglobin A1c Lactic Acid Calcium Phosphorus AST Alkaline Phosphatase NT-Pro-B Natriuret Pep Total Protein Albumin Urine WBC (Auto) Crossmatch 10/13/18 10/13/18 10/13/18 05:25 05:25 05:37 WBC 12.1 H RBC 3.02 L Hgb 7.4 L Hct 23.7 L MCH 25 L RDW 21.0 H Plt Count Lymph % (Auto) 9.6 L [place] % (Auto) 10.0 H Lymph # [place] # 1.2 H Eos # Baso # Seg Neutrophils % 76.2 H Seg Neuts % (Manual) Lymphocytes % (Manual) Seg Neutrophils # 9.2 H Seg Neutrophils # Man Lymphocytes # (Manual) PT INR APTT Heparin Anti-Xa Level POC ABG pH POC ABG pCO2 POC ABG pO2 Sodium Potassium Chloride Carbon Dioxide BUN Creatinine 1.6 H Glucose 175 H POC Glucose 165 H Hemoglobin A1c Lactic Acid Calcium 8.3 L Phosphorus AST Alkaline Phosphatase NT-Pro-B Natriuret Pep Total Protein Albumin Urine WBC (Auto) Crossmatch 10/13/18 10/13/18 10/13/18 06:45 11:12 17:19 WBC RBC Hgb Hct MCH RDW Plt Count Lymph % (Auto) [place] % (Auto) Lymph # [place] # Eos # Baso # Seg Neutrophils % Seg Neuts % (Manual) Lymphocytes % (Manual) Seg Neutrophils # Seg Neutrophils # Man Lymphocytes # (Manual) PT 17.4 H INR 1.34 H APTT Heparin Anti-Xa Level POC ABG pH POC ABG pCO2 POC ABG pO2 Sodium Potassium Chloride Carbon Dioxide BUN Creatinine Glucose POC Glucose 223 H 129 H Hemoglobin A1c Lactic Acid Calcium Phosphorus AST Alkaline Phosphatase NT-Pro-B Natriuret Pep Total Protein Albumin Urine WBC (Auto) Crossmatch 10/13/18 10/14/18 10/14/18 23:39 05:01 06:14 WBC RBC Hgb Hct MCH RDW Plt Count Lymph % (Auto) [place] % (Auto) Lymph # [place] # Eos # Baso # Seg Neutrophils % Seg Neuts % (Manual) Lymphocytes % (Manual) Seg Neutrophils # Seg Neutrophils # Man Lymphocytes # (Manual) PT INR APTT Heparin Anti-Xa Level POC ABG pH POC ABG pCO2 POC ABG pO2 Sodium Potassium Chloride Carbon Dioxide BUN Creatinine 1.5 H Glucose 264 H POC Glucose 171 H 226 H Hemoglobin A1c Lactic Acid Calcium 8.0 L Phosphorus AST Alkaline Phosphatase NT-Pro-B Natriuret Pep Total Protein Albumin Urine WBC (Auto) Crossmatch 10/14/18 10/14/18 10/14/18 06:14 12:24 19:33 WBC RBC Hgb Hct MCH RDW Plt Count Lymph % (Auto) [place] % (Auto) Lymph # [place] # Eos # Baso # Seg Neutrophils % Seg Neuts % (Manual) Lymphocytes % (Manual) Seg Neutrophils # Seg Neutrophils # Man Lymphocytes # (Manual) PT 22.1 H INR 1.80 H APTT Heparin Anti-Xa Level POC ABG pH POC ABG pCO2 POC ABG pO2 Sodium Potassium Chloride Carbon Dioxide BUN Creatinine Glucose POC Glucose 403 H 164 H Hemoglobin A1c Lactic Acid Calcium Phosphorus AST Alkaline Phosphatase NT-Pro-B Natriuret Pep Total Protein Albumin Urine WBC (Auto) Crossmatch 10/15/18 10/15/18 10/15/18 00:29 06:03 07:00 WBC RBC Hgb Hct MCH RDW Plt Count Lymph % (Auto) [place] % (Auto) Lymph # [place] # Eos # Baso # Seg Neutrophils % Seg Neuts % (Manual) Lymphocytes % (Manual) Seg Neutrophils # Seg Neutrophils # Man Lymphocytes # (Manual) PT INR APTT Heparin Anti-Xa Level POC ABG pH POC ABG pCO2 POC ABG pO2 Sodium Potassium Chloride Carbon Dioxide BUN 20 H Creatinine 1.7 H Glucose 308 H POC Glucose 237 H 282 H Hemoglobin A1c Lactic Acid Calcium 7.6 L Phosphorus AST Alkaline Phosphatase NT-Pro-B Natriuret Pep Total Protein Albumin Urine WBC (Auto) Crossmatch 10/15/18 10/15/18 10/15/18 07:00 08:03 10:27 WBC RBC Hgb 5.8 L* Hct 18.5 L* MCH RDW Plt Count Lymph % (Auto) [place] % (Auto) Lymph # [place] # Eos # Baso # Seg Neutrophils % Seg Neuts % (Manual) Lymphocytes % (Manual) Seg Neutrophils # Seg Neutrophils # Man Lymphocytes # (Manual) PT 46.1 H INR 4.52 H APTT Heparin Anti-Xa Level 0.25 L POC ABG pH POC ABG pCO2 POC ABG pO2 Sodium Potassium Chloride Carbon Dioxide BUN Creatinine Glucose POC Glucose Hemoglobin A1c Lactic Acid Calcium Phosphorus AST Alkaline Phosphatase NT-Pro-B Natriuret Pep Total Protein Albumin Urine WBC (Auto) Crossmatch See Detail 10/15/18 10/15/18 10/16/18 14:03 15:30 10:18 WBC RBC Hgb Hct MCH RDW Plt Count Lymph % (Auto) [place] % (Auto) Lymph # [place] # Eos # Baso # Seg Neutrophils % Seg Neuts % (Manual) Lymphocytes % (Manual) Seg Neutrophils # Seg Neutrophils # Man Lymphocytes # (Manual) PT 53.8 H INR 5.48 H* APTT Heparin Anti-Xa Level POC ABG pH POC ABG pCO2 POC ABG pO2 Sodium Potassium Chloride Carbon Dioxide BUN Creatinine Glucose POC Glucose 336 H 259 H Hemoglobin A1c Lactic Acid Calcium Phosphorus AST Alkaline Phosphatase NT-Pro-B Natriuret Pep Total Protein Albumin Urine WBC (Auto) Crossmatch 10/16/18 10/16/18 10/16/18 10:18 10:18 13:03 WBC 14.8 H RBC 3.03 L Hgb 8.2 L Hct 24.9 L D MCH 27 L RDW 19.2 H Plt Count Lymph % (Auto) 5.7 L [place] % (Auto) Lymph # 0.8 L [place] # 1.1 H Eos # Baso # 0.2 H Seg Neutrophils % 84.3 H Seg Neuts % (Manual) Lymphocytes % (Manual) Seg Neutrophils # 12.5 H Seg Neutrophils # Man Lymphocytes # (Manual) PT INR APTT Heparin Anti-Xa Level POC ABG pH POC ABG pCO2 POC ABG pO2 Sodium Potassium Chloride Carbon Dioxide 20 L BUN 21 H Creatinine 1.5 H Glucose 326 H POC Glucose 329 H Hemoglobin A1c Lactic Acid Calcium 7.8 L Phosphorus AST Alkaline Phosphatase NT-Pro-B Natriuret Pep Total Protein Albumin Urine WBC (Auto) Crossmatch 10/16/18 10/17/18 10/17/18 13:27 00:35 05:00 WBC RBC Hgb Hct MCH RDW Plt Count Lymph % (Auto) [place] % (Auto) Lymph # [place] # Eos # Baso # Seg Neutrophils % Seg Neuts % (Manual) Lymphocytes % (Manual) Seg Neutrophils # Seg Neutrophils # Man Lymphocytes # (Manual) PT 55.4 H 60.2 H INR 5.68 H* 6.30 H* APTT Heparin Anti-Xa Level POC ABG pH POC ABG pCO2 POC ABG pO2 Sodium Potassium Chloride Carbon Dioxide BUN Creatinine Glucose POC Glucose 407 H Hemoglobin A1c Lactic Acid Calcium Phosphorus AST Alkaline Phosphatase NT-Pro-B Natriuret Pep Total Protein Albumin Urine WBC (Auto) Crossmatch 10/17/18 10/17/18 10/17/18 05:00 05:00 05:29 WBC 11.6 H RBC 2.99 L Hgb 8.0 L Hct 24.2 L MCH 27 L RDW 19.2 H Plt Count Lymph % (Auto) [place] % (Auto) Lymph # [place] # Eos # Baso # Seg Neutrophils % Seg Neuts % (Manual) 87.0 H Lymphocytes % (Manual) 9.0 L Seg Neutrophils # Seg Neutrophils # Man 10.1 H Lymphocytes # (Manual) 1.0 L PT INR APTT Heparin Anti-Xa Level POC ABG pH POC ABG pCO2 POC ABG pO2 Sodium Potassium 3.4 L D Chloride Carbon Dioxide BUN Creatinine 1.4 H Glucose 170 H POC Glucose 156 H Hemoglobin A1c Lactic Acid Calcium 7.6 L Phosphorus AST Alkaline Phosphatase NT-Pro-B Natriuret Pep Total Protein 5.4 L Albumin 2.2 L Urine WBC (Auto) Crossmatch 10/17/18 10/17/18 10/18/18 11:59 17:06 00:21 WBC RBC Hgb Hct MCH RDW Plt Count Lymph % (Auto) [place] % (Auto) Lymph # [place] # Eos # Baso # Seg Neutrophils % Seg Neuts % (Manual) Lymphocytes % (Manual) Seg Neutrophils # Seg Neutrophils # Man Lymphocytes # (Manual) PT INR APTT Heparin Anti-Xa Level POC ABG pH POC ABG pCO2 POC ABG pO2 Sodium Potassium Chloride Carbon Dioxide BUN Creatinine Glucose POC Glucose 389 H 151 H 355 H Hemoglobin A1c Lactic Acid Calcium Phosphorus AST Alkaline Phosphatase NT-Pro-B Natriuret Pep Total Protein Albumin Urine WBC (Auto) Crossmatch 10/18/18 10/18/18 10/18/18 04:17 04:17 04:17 WBC RBC 3.01 L Hgb 8.1 L Hct 24.6 L MCH 27 L RDW 19.7 H Plt Count Lymph % (Auto) 12.7 L [place] % (Auto) Lymph # [place] # Eos # Baso # Seg Neutrophils % 76.3 H Seg Neuts % (Manual) Lymphocytes % (Manual) Seg Neutrophils # 8.2 H Seg Neutrophils # Man Lymphocytes # (Manual) PT 39.5 H INR 3.72 H APTT Heparin Anti-Xa Level POC ABG pH POC ABG pCO2 POC ABG pO2 Sodium Potassium 3.5 L Chloride Carbon Dioxide BUN Creatinine 1.5 H Glucose 115 H POC Glucose Hemoglobin A1c Lactic Acid Calcium 7.4 L Phosphorus AST Alkaline Phosphatase NT-Pro-B Natriuret Pep Total Protein Albumin Urine WBC (Auto) Crossmatch 10/18/18 10/18/18 10/18/18 06:45 13:39 17:12 WBC RBC Hgb Hct MCH RDW Plt Count Lymph % (Auto) [place] % (Auto) Lymph # [place] # Eos # Baso # Seg Neutrophils % Seg Neuts % (Manual) Lymphocytes % (Manual) Seg Neutrophils # Seg Neutrophils # Man Lymphocytes # (Manual) PT INR APTT Heparin Anti-Xa Level POC ABG pH POC ABG pCO2 POC ABG pO2 Sodium Potassium Chloride Carbon Dioxide BUN Creatinine Glucose POC Glucose 170 H 415 H 377 H Hemoglobin A1c Lactic Acid Calcium Phosphorus AST Alkaline Phosphatase NT-Pro-B Natriuret Pep Total Protein Albumin Urine WBC (Auto) Crossmatch 10/19/18 10/19/18 10/19/18 00:48 05:35 05:52 WBC RBC 2.84 L Hgb 7.7 L Hct 23.2 L MCH 27 L RDW 19.8 H Plt Count Lymph % (Auto) 11.0 L [place] % (Auto) Lymph # 1.1 L [place] # Eos # Baso # Seg Neutrophils % 78.5 H Seg Neuts % (Manual) Lymphocytes % (Manual) Seg Neutrophils # 8.1 H Seg Neutrophils # Man Lymphocytes # (Manual) PT INR APTT Heparin Anti-Xa Level POC ABG pH POC ABG pCO2 POC ABG pO2 Sodium Potassium Chloride Carbon Dioxide BUN Creatinine Glucose POC Glucose 308 H 116 H Hemoglobin A1c Lactic Acid Calcium Phosphorus AST Alkaline Phosphatase NT-Pro-B Natriuret Pep Total Protein Albumin Urine WBC (Auto) Crossmatch 10/19/18 10/19/18 10/19/18 05:52 07:12 09:41 WBC RBC Hgb 8.1 L Hct 24.6 L MCH RDW Plt Count Lymph % (Auto) [place] % (Auto) Lymph # [place] # Eos # Baso # Seg Neutrophils % Seg Neuts % (Manual) Lymphocytes % (Manual) Seg Neutrophils # Seg Neutrophils # Man Lymphocytes # (Manual) PT 18.1 H INR 1.40 H APTT Heparin Anti-Xa Level POC ABG pH POC ABG pCO2 POC ABG pO2 Sodium Potassium Chloride Carbon Dioxide BUN 21 H Creatinine 1.6 H Glucose 128 H POC Glucose Hemoglobin A1c Lactic Acid Calcium 7.7 L Phosphorus AST Alkaline Phosphatase NT-Pro-B Natriuret Pep Total Protein Albumin Urine WBC (Auto) Crossmatch 10/19/18 10/19/18 10/19/18 09:41 11:46 12:26 WBC RBC Hgb Hct MCH RDW Plt Count Lymph % (Auto) [place] % (Auto) Lymph # [place] # Eos # Baso # Seg Neutrophils % Seg Neuts % (Manual) Lymphocytes % (Manual) Seg Neutrophils # Seg Neutrophils # Man Lymphocytes # (Manual) PT 17.7 H INR 1.36 H APTT Heparin Anti-Xa Level 0.19 L POC ABG pH POC ABG pCO2 POC ABG pO2 Sodium Potassium Chloride Carbon Dioxide BUN Creatinine Glucose POC Glucose 212 H Hemoglobin A1c Lactic Acid Calcium Phosphorus AST Alkaline Phosphatase NT-Pro-B Natriuret Pep Total Protein Albumin Urine WBC (Auto) Crossmatch 10/19/18 10/19/18 10/19/18 16:12 19:56 22:09 WBC RBC Hgb Hct MCH RDW Plt Count Lymph % (Auto) [place] % (Auto) Lymph # [place] # Eos # Baso # Seg Neutrophils % Seg Neuts % (Manual) Lymphocytes % (Manual) Seg Neutrophils # Seg Neutrophils # Man Lymphocytes # (Manual) PT INR APTT Heparin Anti-Xa Level POC ABG pH 7.458 H POC ABG pCO2 POC ABG pO2 63 L Sodium Potassium Chloride Carbon Dioxide BUN Creatinine Glucose POC Glucose 260 H 216 H Hemoglobin A1c Lactic Acid Calcium Phosphorus AST Alkaline Phosphatase NT-Pro-B Natriuret Pep Total Protein Albumin Urine WBC (Auto) Crossmatch 10/20/18 10/20/18 10/20/18 03:00 03:00 03:00 WBC 14.8 H RBC 2.81 L Hgb 7.5 L Hct 23.1 L MCH 27 L RDW 20.0 H Plt Count Lymph % (Auto) 11.5 L [place] % (Auto) Lymph # [place] # 0.9 H Eos # Baso # Seg Neutrophils % 79.7 H Seg Neuts % (Manual) Lymphocytes % (Manual) Seg Neutrophils # 11.8 H Seg Neutrophils # Man Lymphocytes # (Manual) PT 16.9 H INR 1.29 H APTT Heparin Anti-Xa Level 0.24 L POC ABG pH POC ABG pCO2 POC ABG pO2 Sodium Potassium Chloride 97.8 L Carbon Dioxide BUN 20 H Creatinine 1.5 H Glucose 206 H POC Glucose Hemoglobin A1c Lactic Acid Calcium 7.8 L Phosphorus AST Alkaline Phosphatase NT-Pro-B Natriuret Pep Total Protein Albumin Urine WBC (Auto) Crossmatch 10/20/18 10/20/18 10/20/18 06:59 10:20 10:59 WBC RBC Hgb Hct MCH RDW Plt Count Lymph % (Auto) [place] % (Auto) Lymph # [place] # Eos # Baso # Seg Neutrophils % Seg Neuts % (Manual) Lymphocytes % (Manual) Seg Neutrophils # Seg Neutrophils # Man Lymphocytes # (Manual) PT 15.5 H INR 1.16 H APTT Heparin Anti-Xa Level < 0.10 L POC ABG pH POC ABG pCO2 POC ABG pO2 Sodium Potassium Chloride Carbon Dioxide BUN Creatinine Glucose POC Glucose 348 H 227 H Hemoglobin A1c Lactic Acid Calcium Phosphorus AST Alkaline Phosphatase NT-Pro-B Natriuret Pep Total Protein Albumin Urine WBC (Auto) Crossmatch 10/20/18 10/20/18 10/21/18 16:15 17:14 00:53 WBC RBC Hgb Hct MCH RDW Plt Count Lymph % (Auto) [place] % (Auto) Lymph # [place] # Eos # Baso # Seg Neutrophils % Seg Neuts % (Manual) Lymphocytes % (Manual) Seg Neutrophils # Seg Neutrophils # Man Lymphocytes # (Manual) PT INR APTT Heparin Anti-Xa Level 0.24 L POC ABG pH POC ABG pCO2 POC ABG pO2 Sodium Potassium Chloride Carbon Dioxide BUN Creatinine Glucose POC Glucose 279 H 136 H Hemoglobin A1c Lactic Acid Calcium Phosphorus AST Alkaline Phosphatase NT-Pro-B Natriuret Pep Total Protein Albumin Urine WBC (Auto) Crossmatch 10/21/18 10/21/18 10/21/18 05:45 05:45 05:45 WBC 15.8 H RBC 2.79 L Hgb 7.5 L Hct 22.9 L MCH 27 L RDW 19.8 H Plt Count Lymph % (Auto) 7.2 L [place] % (Auto) Lymph # 1.1 L [place] # Eos # Baso # Seg Neutrophils % 85.7 H Seg Neuts % (Manual) Lymphocytes % (Manual) Seg Neutrophils # 13.5 H Seg Neutrophils # Man Lymphocytes # (Manual) PT 16.9 H INR 1.29 H APTT Heparin Anti-Xa Level POC ABG pH POC ABG pCO2 POC ABG pO2 Sodium Potassium Chloride Carbon Dioxide BUN 18 H Creatinine 1.4 H Glucose 339 H POC Glucose Hemoglobin A1c Lactic Acid Calcium 8.3 L Phosphorus AST Alkaline Phosphatase NT-Pro-B Natriuret Pep Total Protein Albumin Urine WBC (Auto) Crossmatch 10/21/18 10/21/18 10/21/18 08:00 10:13 11:00 WBC RBC Hgb Hct MCH RDW Plt Count Lymph % (Auto) [place] % (Auto) Lymph # [place] # Eos # Baso # Seg Neutrophils % Seg Neuts % (Manual) Lymphocytes % (Manual) Seg Neutrophils # Seg Neutrophils # Man Lymphocytes # (Manual) PT INR APTT Heparin Anti-Xa Level POC ABG pH POC ABG pCO2 POC ABG pO2 Sodium Potassium Chloride Carbon Dioxide BUN Creatinine Glucose POC Glucose 398 H 295 H Hemoglobin A1c Lactic Acid Calcium Phosphorus AST Alkaline Phosphatase NT-Pro-B Natriuret Pep Total Protein Albumin Urine WBC (Auto) 125.0 H Crossmatch 10/21/18 10/21/18 10/21/18 11:18 17:20 17:52 WBC RBC Hgb Hct MCH RDW Plt Count Lymph % (Auto) [place] % (Auto) Lymph # [place] # Eos # Baso # Seg Neutrophils % Seg Neuts % (Manual) Lymphocytes % (Manual) Seg Neutrophils # Seg Neutrophils # Man Lymphocytes # (Manual) PT 17.2 H INR 1.32 H APTT 40.0 H Heparin Anti-Xa Level POC ABG pH POC ABG pCO2 POC ABG pO2 Sodium Potassium Chloride Carbon Dioxide BUN Creatinine Glucose POC Glucose 235 H 271 H Hemoglobin A1c Lactic Acid Calcium Phosphorus AST Alkaline Phosphatase NT-Pro-B Natriuret Pep Total Protein Albumin Urine WBC (Auto) Crossmatch 10/21/18 10/22/18 10/22/18 23:41 00:47 04:39 WBC 16.1 H RBC 2.69 L Hgb 6.7 L 7.3 L Hct 19.8 L* 22.3 L MCH 27 L RDW 20.4 H Plt Count Lymph % (Auto) 6.9 L [place] % (Auto) Lymph # 1.1 L [place] # 1.0 H Eos # Baso # Seg Neutrophils % 85.3 H Seg Neuts % (Manual) Lymphocytes % (Manual) Seg Neutrophils # 13.8 H Seg Neutrophils # Man Lymphocytes # (Manual) PT INR APTT Heparin Anti-Xa Level POC ABG pH POC ABG pCO2 POC ABG pO2 Sodium Potassium Chloride Carbon Dioxide BUN Creatinine Glucose POC Glucose 157 H Hemoglobin A1c Lactic Acid Calcium Phosphorus AST Alkaline Phosphatase NT-Pro-B Natriuret Pep Total Protein Albumin Urine WBC (Auto) Crossmatch 10/22/18 10/22/18 10/22/18 04:39 04:39 04:39 WBC RBC Hgb Hct MCH RDW Plt Count Lymph % (Auto) [place] % (Auto) Lymph # [place] # Eos # Baso # Seg Neutrophils % Seg Neuts % (Manual) Lymphocytes % (Manual) Seg Neutrophils # Seg Neutrophils # Man Lymphocytes # (Manual) PT 20.3 H INR 1.62 H APTT Heparin Anti-Xa Level 0.12 L POC ABG pH POC ABG pCO2 POC ABG pO2 Sodium Potassium Chloride Carbon Dioxide BUN 20 H Creatinine 1.7 H Glucose 255 H POC Glucose Hemoglobin A1c Lactic Acid Calcium 8.1 L Phosphorus AST Alkaline Phosphatase NT-Pro-B Natriuret Pep Total Protein Albumin Urine WBC (Auto) Crossmatch See Detail 10/22/18 10/22/18 10/22/18 05:09 11:20 11:20 WBC RBC Hgb 7.4 L Hct 21.9 L MCH RDW Plt Count 457 H Lymph % (Auto) [place] % (Auto) Lymph # [place] # Eos # Baso # Seg Neutrophils % Seg Neuts % (Manual) Lymphocytes % (Manual) Seg Neutrophils # Seg Neutrophils # Man Lymphocytes # (Manual) PT 20.8 H INR 1.67 H APTT 71.0 H* Heparin Anti-Xa Level 0.20 L POC ABG pH POC ABG pCO2 POC ABG pO2 Sodium Potassium Chloride Carbon Dioxide BUN Creatinine Glucose POC Glucose 297 H Hemoglobin A1c Lactic Acid Calcium Phosphorus AST Alkaline Phosphatase NT-Pro-B Natriuret Pep Total Protein Albumin Urine WBC (Auto) Crossmatch 10/22/18 10/22/18 10/22/18 12:09 16:51 17:11 WBC RBC Hgb Hct MCH RDW Plt Count Lymph % (Auto) [place] % (Auto) Lymph # [place] # Eos # Baso # Seg Neutrophils % Seg Neuts % (Manual) Lymphocytes % (Manual) Seg Neutrophils # Seg Neutrophils # Man Lymphocytes # (Manual) PT INR APTT Heparin Anti-Xa Level POC ABG pH POC ABG pCO2 POC ABG pO2 Sodium Potassium Chloride Carbon Dioxide BUN Creatinine Glucose 115 H POC Glucose 125 H < 40 L Hemoglobin A1c Lactic Acid Calcium Phosphorus AST Alkaline Phosphatase NT-Pro-B Natriuret Pep Total Protein Albumin Urine WBC (Auto) Crossmatch 10/22/18 10/23/18 10/23/18 17:13 00:08 06:19 WBC RBC Hgb Hct MCH RDW Plt Count Lymph % (Auto) [place] % (Auto) Lymph # [place] # Eos # Baso # Seg Neutrophils % Seg Neuts % (Manual) Lymphocytes % (Manual) Seg Neutrophils # Seg Neutrophils # Man Lymphocytes # (Manual) PT INR APTT Heparin Anti-Xa Level POC ABG pH POC ABG pCO2 POC ABG pO2 Sodium Potassium Chloride Carbon Dioxide BUN Creatinine Glucose POC Glucose 126 H 192 H 249 H Hemoglobin A1c Lactic Acid Calcium Phosphorus AST Alkaline Phosphatase NT-Pro-B Natriuret Pep Total Protein Albumin Urine WBC (Auto) Crossmatch 10/23/18 10/23/18 10/23/18 07:21 07:21 07:21 WBC 14.4 H RBC 3.29 L Hgb 9.2 L Hct 27.6 L MCH RDW 20.5 H Plt Count 505 H Lymph % (Auto) 8.1 L [place] % (Auto) Lymph # [place] # 1.0 H Eos # 0.6 H Baso # Seg Neutrophils % 80.0 H Seg Neuts % (Manual) Lymphocytes % (Manual) Seg Neutrophils # 11.5 H Seg Neutrophils # Man Lymphocytes # (Manual) PT 21.6 H INR 1.75 H APTT Heparin Anti-Xa Level POC ABG pH POC ABG pCO2 POC ABG pO2 Sodium Potassium Chloride Carbon Dioxide BUN 18 H Creatinine 1.5 H Glucose 308 H POC Glucose Hemoglobin A1c Lactic Acid Calcium Phosphorus AST Alkaline Phosphatase NT-Pro-B Natriuret Pep Total Protein Albumin Urine WBC (Auto) Crossmatch 10/23/18 10/23/18 10/23/18 10:34 11:56 17:07 WBC RBC Hgb Hct MCH RDW Plt Count Lymph % (Auto) [place] % (Auto) Lymph # [place] # Eos # Baso # Seg Neutrophils % Seg Neuts % (Manual) Lymphocytes % (Manual) Seg Neutrophils # Seg Neutrophils # Man Lymphocytes # (Manual) PT INR APTT Heparin Anti-Xa Level POC ABG pH POC ABG pCO2 POC ABG pO2 Sodium Potassium Chloride Carbon Dioxide BUN Creatinine Glucose POC Glucose > 500 H 440 H 387 H Hemoglobin A1c Lactic Acid Calcium Phosphorus AST Alkaline Phosphatase NT-Pro-B Natriuret Pep Total Protein Albumin Urine WBC (Auto) Crossmatch 10/23/18 10/24/18 10/24/18 23:44 06:18 06:39 WBC RBC Hgb 7.9 L Hct 24.3 L MCH RDW Plt Count 522 H Lymph % (Auto) [place] % (Auto) Lymph # [place] # Eos # Baso # Seg Neutrophils % Seg Neuts % (Manual) Lymphocytes % (Manual) Seg Neutrophils # Seg Neutrophils # Man Lymphocytes # (Manual) PT INR APTT Heparin Anti-Xa Level POC ABG pH POC ABG pCO2 POC ABG pO2 Sodium Potassium Chloride Carbon Dioxide BUN Creatinine Glucose POC Glucose 172 H 154 H Hemoglobin A1c Lactic Acid Calcium Phosphorus AST Alkaline Phosphatase NT-Pro-B Natriuret Pep Total Protein Albumin Urine WBC (Auto) Crossmatch 10/24/18 10/24/18 10/24/18 08:05 11:12 18:50 WBC RBC Hgb Hct MCH RDW Plt Count Lymph % (Auto) [place] % (Auto) Lymph # [place] # Eos # Baso # Seg Neutrophils % Seg Neuts % (Manual) Lymphocytes % (Manual) Seg Neutrophils # Seg Neutrophils # Man Lymphocytes # (Manual) PT 20.5 H INR 1.64 H APTT Heparin Anti-Xa Level < 0.10 L POC ABG pH POC ABG pCO2 POC ABG pO2 Sodium Potassium Chloride Carbon Dioxide BUN Creatinine Glucose POC Glucose 203 H Hemoglobin A1c Lactic Acid Calcium Phosphorus AST Alkaline Phosphatase NT-Pro-B Natriuret Pep Total Protein Albumin Urine WBC (Auto) Crossmatch 10/25/18 10/25/18 10/25/18 01:29 06:00 06:00 WBC RBC Hgb 7.8 L Hct 23.9 L MCH RDW Plt Count 569 H Lymph % (Auto) [place] % (Auto) Lymph # [place] # Eos # Baso # Seg Neutrophils % Seg Neuts % (Manual) Lymphocytes % (Manual) Seg Neutrophils # Seg Neutrophils # Man Lymphocytes # (Manual) PT 15.6 H INR 1.17 H APTT Heparin Anti-Xa Level POC ABG pH POC ABG pCO2 POC ABG pO2 Sodium Potassium Chloride Carbon Dioxide BUN Creatinine Glucose POC Glucose 146 H Hemoglobin A1c Lactic Acid Calcium Phosphorus AST Alkaline Phosphatase NT-Pro-B Natriuret Pep Total Protein Albumin Urine WBC (Auto) Crossmatch 10/25/18 10/25/18 10/25/18 06:00 06:11 12:05 WBC RBC Hgb Hct MCH RDW Plt Count Lymph % (Auto) [place] % (Auto) Lymph # [place] # Eos # Baso # Seg Neutrophils % Seg Neuts % (Manual) Lymphocytes % (Manual) Seg Neutrophils # Seg Neutrophils # Man Lymphocytes # (Manual) PT INR APTT Heparin Anti-Xa Level 0.14 L POC ABG pH POC ABG pCO2 POC ABG pO2 Sodium Potassium Chloride Carbon Dioxide BUN Creatinine Glucose POC Glucose 246 H 283 H Hemoglobin A1c Lactic Acid Calcium Phosphorus AST Alkaline Phosphatase NT-Pro-B Natriuret Pep Total Protein Albumin Urine WBC (Auto) Crossmatch 10/25/18 10/25/18 10/26/18 17:53 21:20 04:59 WBC RBC Hgb 8.0 L Hct 24.4 L MCH RDW Plt Count Lymph % (Auto) [place] % (Auto) Lymph # [place] # Eos # Baso # Seg Neutrophils % Seg Neuts % (Manual) Lymphocytes % (Manual) Seg Neutrophils # Seg Neutrophils # Man Lymphocytes # (Manual) PT INR APTT Heparin Anti-Xa Level POC ABG pH POC ABG pCO2 POC ABG pO2 Sodium Potassium Chloride Carbon Dioxide BUN Creatinine Glucose POC Glucose 298 H 336 H Hemoglobin A1c Lactic Acid Calcium Phosphorus AST Alkaline Phosphatase NT-Pro-B Natriuret Pep Total Protein Albumin Urine WBC (Auto) Crossmatch 10/26/18 10/26/18 10/26/18 04:59 07:48 12:33 WBC RBC Hgb Hct MCH RDW Plt Count Lymph % (Auto) [place] % (Auto) Lymph # [place] # Eos # Baso # Seg Neutrophils % Seg Neuts % (Manual) Lymphocytes % (Manual) Seg Neutrophils # Seg Neutrophils # Man Lymphocytes # (Manual) PT INR APTT Heparin Anti-Xa Level 0.21 L 0.19 L POC ABG pH POC ABG pCO2 POC ABG pO2 Sodium Potassium Chloride Carbon Dioxide BUN Creatinine Glucose POC Glucose 339 H Hemoglobin A1c Lactic Acid Calcium Phosphorus AST Alkaline Phosphatase NT-Pro-B Natriuret Pep Total Protein Albumin Urine WBC (Auto) Crossmatch 10/26/18 10/26/18 10/26/18 15:49 15:54 17:36 WBC RBC Hgb Hct MCH RDW Plt Count Lymph % (Auto) [place] % (Auto) Lymph # [place] # Eos # Baso # Seg Neutrophils % Seg Neuts % (Manual) Lymphocytes % (Manual) Seg Neutrophils # Seg Neutrophils # Man Lymphocytes # (Manual) PT INR APTT Heparin Anti-Xa Level POC ABG pH POC ABG pCO2 POC ABG pO2 Sodium Potassium Chloride Carbon Dioxide BUN Creatinine Glucose 49 L POC Glucose < 40 L 226 H Hemoglobin A1c Lactic Acid Calcium Phosphorus AST Alkaline Phosphatase NT-Pro-B Natriuret Pep Total Protein Albumin Urine WBC (Auto) Crossmatch 10/26/18 10/26/18 10/27/18 19:42 21:08 03:00 WBC RBC Hgb 7.9 L Hct 23.8 L MCH RDW Plt Count 629 H Lymph % (Auto) [place] % (Auto) Lymph # [place] # Eos # Baso # Seg Neutrophils % Seg Neuts % (Manual) Lymphocytes % (Manual) Seg Neutrophils # Seg Neutrophils # Man Lymphocytes # (Manual) PT INR APTT Heparin Anti-Xa Level 0.19 L POC ABG pH POC ABG pCO2 POC ABG pO2 Sodium Potassium Chloride Carbon Dioxide BUN Creatinine Glucose POC Glucose 234 H Hemoglobin A1c Lactic Acid Calcium Phosphorus AST Alkaline Phosphatase NT-Pro-B Natriuret Pep Total Protein Albumin Urine WBC (Auto) Crossmatch 10/27/18 10/27/18 10/27/18 08:16 12:30 16:44 WBC RBC Hgb Hct MCH RDW Plt Count Lymph % (Auto) [place] % (Auto) Lymph # [place] # Eos # Baso # Seg Neutrophils % Seg Neuts % (Manual) Lymphocytes % (Manual) Seg Neutrophils # Seg Neutrophils # Man Lymphocytes # (Manual) PT INR APTT Heparin Anti-Xa Level POC ABG pH POC ABG pCO2 POC ABG pO2 Sodium Potassium Chloride Carbon Dioxide BUN Creatinine Glucose POC Glucose 181 H 287 H 339 H Hemoglobin A1c Lactic Acid Calcium Phosphorus AST Alkaline Phosphatase NT-Pro-B Natriuret Pep Total Protein Albumin Urine WBC (Auto) Crossmatch 10/27/18 10/28/18 10/28/18 21:09 03:57 03:57 WBC RBC Hgb 7.7 L Hct 23.5 L MCH RDW Plt Count Lymph % (Auto) [place] % (Auto) Lymph # [place] # Eos # Baso # Seg Neutrophils % Seg Neuts % (Manual) Lymphocytes % (Manual) Seg Neutrophils # Seg Neutrophils # Man Lymphocytes # (Manual) PT 15.1 H INR APTT Heparin Anti-Xa Level 0.29 L POC ABG pH POC ABG pCO2 POC ABG pO2 Sodium Potassium Chloride Carbon Dioxide BUN Creatinine Glucose POC Glucose 120 H Hemoglobin A1c Lactic Acid Calcium Phosphorus AST Alkaline Phosphatase NT-Pro-B Natriuret Pep Total Protein Albumin Urine WBC (Auto) Crossmatch 10/28/18 10/28/18 10/28/18 08:20 11:08 16:32 WBC RBC Hgb Hct MCH RDW Plt Count Lymph % (Auto) [place] % (Auto) Lymph # [place] # Eos # Baso # Seg Neutrophils % Seg Neuts % (Manual) Lymphocytes % (Manual) Seg Neutrophils # Seg Neutrophils # Man Lymphocytes # (Manual) PT INR APTT Heparin Anti-Xa Level POC ABG pH POC ABG pCO2 POC ABG pO2 Sodium Potassium Chloride Carbon Dioxide BUN Creatinine Glucose POC Glucose 308 H 371 H 115 H Hemoglobin A1c Lactic Acid Calcium Phosphorus AST Alkaline Phosphatase NT-Pro-B Natriuret Pep Total Protein Albumin Urine WBC (Auto) Crossmatch 10/28/18 10/29/18 10/29/18 22:01 07:06 07:06 WBC RBC Hgb 7.8 L Hct 23.8 L MCH RDW Plt Count 625 H Lymph % (Auto) [place] % (Auto) Lymph # [place] # Eos # Baso # Seg Neutrophils % Seg Neuts % (Manual) Lymphocytes % (Manual) Seg Neutrophils # Seg Neutrophils # Man Lymphocytes # (Manual) PT 15.4 H INR 1.15 H APTT Heparin Anti-Xa Level POC ABG pH POC ABG pCO2 POC ABG pO2 Sodium Potassium Chloride Carbon Dioxide BUN Creatinine Glucose POC Glucose 287 H Hemoglobin A1c Lactic Acid Calcium Phosphorus AST Alkaline Phosphatase NT-Pro-B Natriuret Pep Total Protein Albumin Urine WBC (Auto) Crossmatch 10/29/18 10/29/18 10/29/18 07:56 11:22 15:19 WBC RBC Hgb Hct MCH RDW Plt Count Lymph % (Auto) [place] % (Auto) Lymph # [place] # Eos # Baso # Seg Neutrophils % Seg Neuts % (Manual) Lymphocytes % (Manual) Seg Neutrophils # Seg Neutrophils # Man Lymphocytes # (Manual) PT INR APTT Heparin Anti-Xa Level 0.16 L POC ABG pH POC ABG pCO2 POC ABG pO2 Sodium Potassium Chloride Carbon Dioxide BUN Creatinine Glucose POC Glucose 199 H 328 H Hemoglobin A1c Lactic Acid Calcium Phosphorus AST Alkaline Phosphatase NT-Pro-B Natriuret Pep Total Protein Albumin Urine WBC (Auto) Crossmatch 10/29/18 10/29/18 10/30/18 15:19 16:26 04:59 WBC RBC Hgb Hct MCH RDW Plt Count Lymph % (Auto) [place] % (Auto) Lymph # [place] # Eos # Baso # Seg Neutrophils % Seg Neuts % (Manual) Lymphocytes % (Manual) Seg Neutrophils # Seg Neutrophils # Man Lymphocytes # (Manual) PT 17.7 H INR 1.36 H APTT Heparin Anti-Xa Level POC ABG pH POC ABG pCO2 POC ABG pO2 Sodium 135 L Potassium Chloride Carbon Dioxide 20 L BUN 33 H Creatinine 1.5 H Glucose 161 H POC Glucose 155 H Hemoglobin A1c Lactic Acid Calcium 8.3 L Phosphorus AST Alkaline Phosphatase NT-Pro-B Natriuret Pep Total Protein Albumin Urine WBC (Auto) Crossmatch 10/30/18 05:04 WBC RBC Hgb 7.9 L Hct 23.8 L MCH RDW Plt Count Lymph % (Auto) [place] % (Auto) Lymph # [place] # Eos # Baso # Seg Neutrophils % Seg Neuts % (Manual) Lymphocytes % (Manual) Seg Neutrophils # Seg Neutrophils # Man Lymphocytes # (Manual) PT INR APTT Heparin Anti-Xa Level POC ABG pH POC ABG pCO2 POC ABG pO2 Sodium Potassium Chloride Carbon Dioxide BUN Creatinine Glucose POC Glucose Hemoglobin A1c Lactic Acid Calcium Phosphorus AST Alkaline Phosphatase NT-Pro-B Natriuret Pep Total Protein Albumin Urine WBC (Auto) Crossmatch Allied health notes reviewed: nursing
[2018-10-30] MEDS: HumaLOG SUB-Q SCH ×4 (08:35→22:42)
[2018-10-30] MEDS: LOPRESSOR PO SCH ×3 (08:36→22:41)
[2018-10-30] MEDS: LASIX PO SCH (09:38)
[2018-10-30] MEDS: PREVACID SOLUTAB FEEDTUBE SCH ×2 (09:39→22:40)
[2018-10-30] MEDS: LANTUS SUB-Q SCH (09:40)
[2018-10-30] MEDS: SODIUM CHLORIDE FLUSH SYRINGE 10 ML IV SCH ×2 (09:44→22:43)
--- NOTE | 2018-10-30 10:01 | Progress Note ---
Subjective Date of service: 10/30/18 Principal diagnosis: Ac hypoxemic resp failure; Seizures (?hypoglycemic); Ac encephalopathy(T/M) Interval history: await getting further imaging studies... clinical state slowly improving continue to monitor seizure control is good reviewed all labs will monitor closely Objective - Vital Sign Vital Signs - 12hr 10/30/18 10/30/18 05:30 08:36 Temperature 97.6 F Pulse Rate 81 92 H Respiratory 16 Rate Blood Pressure 146/87 153/101 O2 Sat by Pulse 97 Oximetry - Laboratory Findings CBC and BMP: 10/30/18 05:04 10/29/18 15:19 Abnormal Lab Findings: Abnormal Labs 10/07/18 10/07/18 10/07/18 02:20 02:43 02:43 WBC RBC Hgb Hct MCH 25 L RDW 21.5 H Plt Count Lymph % (Auto) [place] % (Auto) Lymph # 0.9 L [place] # Eos # Baso # Seg Neutrophils % 78.4 H Seg Neuts % (Manual) Lymphocytes % (Manual) Seg Neutrophils # Seg Neutrophils # Man Lymphocytes # (Manual) PT INR APTT Heparin Anti-Xa Level POC ABG pH POC ABG pCO2 POC ABG pO2 Sodium Potassium Chloride 108.0 H Carbon Dioxide 21 L BUN Creatinine 1.5 H Glucose 115 H POC Glucose 136 H Hemoglobin A1c Lactic Acid Calcium Phosphorus AST 51 H Alkaline Phosphatase 257 H NT-Pro-B Natriuret Pep Total Protein Albumin Urine WBC (Auto) Crossmatch 10/07/18 10/07/18 10/07/18 02:43 04:32 05:12 WBC RBC Hgb Hct MCH RDW Plt Count Lymph % (Auto) [place] % (Auto) Lymph # [place] # Eos # Baso # Seg Neutrophils % Seg Neuts % (Manual) Lymphocytes % (Manual) Seg Neutrophils # Seg Neutrophils # Man Lymphocytes # (Manual) PT 25.4 H INR 2.14 H APTT Heparin Anti-Xa Level POC ABG pH POC ABG pCO2 33.6 L POC ABG pO2 69 L Sodium Potassium Chloride Carbon Dioxide BUN Creatinine Glucose POC Glucose Hemoglobin A1c Lactic Acid 2.40 H* Calcium Phosphorus AST Alkaline Phosphatase NT-Pro-B Natriuret Pep Total Protein Albumin Urine WBC (Auto) Crossmatch 10/07/18 10/07/18 10/07/18 06:28 18:39 20:26 WBC RBC Hgb Hct MCH RDW Plt Count Lymph % (Auto) [place] % (Auto) Lymph # [place] # Eos # Baso # Seg Neutrophils % Seg Neuts % (Manual) Lymphocytes % (Manual) Seg Neutrophils # Seg Neutrophils # Man Lymphocytes # (Manual) PT INR APTT Heparin Anti-Xa Level POC ABG pH POC ABG pCO2 POC ABG pO2 Sodium Potassium Chloride Carbon Dioxide BUN Creatinine Glucose POC Glucose 164 H 440 H > 500 H Hemoglobin A1c Lactic Acid Calcium Phosphorus AST Alkaline Phosphatase NT-Pro-B Natriuret Pep Total Protein Albumin Urine WBC (Auto) Crossmatch 10/07/18 10/07/18 10/07/18 20:28 21:53 22:08 WBC RBC Hgb Hct MCH RDW Plt Count Lymph % (Auto) [place] % (Auto) Lymph # [place] # Eos # Baso # Seg Neutrophils % Seg Neuts % (Manual) Lymphocytes % (Manual) Seg Neutrophils # Seg Neutrophils # Man Lymphocytes # (Manual) PT INR APTT Heparin Anti-Xa Level POC ABG pH POC ABG pCO2 POC ABG pO2 Sodium 136 L D Potassium 6.4 H* D Chloride Carbon Dioxide 10 L D BUN 30 H Creatinine 2.0 H Glucose 544 H* POC Glucose 483 H > 500 H Hemoglobin A1c Lactic Acid Calcium 7.0 L D Phosphorus AST Alkaline Phosphatase NT-Pro-B Natriuret Pep Total Protein Albumin Urine WBC (Auto) Crossmatch 10/07/18 10/07/18 10/07/18 22:08 22:08 22:56 WBC RBC Hgb Hct MCH RDW Plt Count Lymph % (Auto) [place] % (Auto) Lymph # [place] # Eos # Baso # Seg Neutrophils % Seg Neuts % (Manual) Lymphocytes % (Manual) Seg Neutrophils # Seg Neutrophils # Man Lymphocytes # (Manual) PT INR APTT Heparin Anti-Xa Level POC ABG pH POC ABG pCO2 POC ABG pO2 Sodium Potassium Chloride Carbon Dioxide BUN Creatinine Glucose POC Glucose 462 H Hemoglobin A1c 10.2 H Lactic Acid Calcium Phosphorus 7.40 H AST Alkaline Phosphatase NT-Pro-B Natriuret Pep Total Protein Albumin Urine WBC (Auto) Crossmatch 10/07/18 10/08/18 10/08/18 23:39 00:58 02:09 WBC RBC Hgb Hct MCH RDW Plt Count Lymph % (Auto) [place] % (Auto) Lymph # [place] # Eos # Baso # Seg Neutrophils % Seg Neuts % (Manual) Lymphocytes % (Manual) Seg Neutrophils # Seg Neutrophils # Man Lymphocytes # (Manual) PT INR APTT Heparin Anti-Xa Level POC ABG pH POC ABG pCO2 POC ABG pO2 Sodium Potassium Chloride Carbon Dioxide BUN Creatinine Glucose POC Glucose 396 H 375 H 285 H Hemoglobin A1c Lactic Acid Calcium Phosphorus AST Alkaline Phosphatase NT-Pro-B Natriuret Pep Total Protein Albumin Urine WBC (Auto) Crossmatch 10/08/18 10/08/18 10/08/18 03:10 03:33 04:05 WBC RBC Hgb Hct MCH RDW Plt Count Lymph % (Auto) [place] % (Auto) Lymph # [place] # Eos # Baso # Seg Neutrophils % Seg Neuts % (Manual) Lymphocytes % (Manual) Seg Neutrophils # Seg Neutrophils # Man Lymphocytes # (Manual) PT INR APTT Heparin Anti-Xa Level POC ABG pH 7.243 L POC ABG pCO2 33.8 L POC ABG pO2 126 H Sodium Potassium 5.3 H Chloride 110.7 H Carbon Dioxide 14 L BUN 33 H Creatinine 2.2 H Glucose 193 H POC Glucose 251 H Hemoglobin A1c Lactic Acid Calcium 7.0 L Phosphorus AST Alkaline Phosphatase 155 H NT-Pro-B Natriuret Pep Total Protein 5.2 L D Albumin 2.6 L Urine WBC (Auto) Crossmatch 10/08/18 10/08/18 10/08/18 04:05 04:05 04:09 WBC 11.8 H RBC 3.32 L Hgb 8.3 L Hct 27.5 L D MCH 25 L RDW 22.0 H Plt Count Lymph % (Auto) 6.8 L [place] % (Auto) 12.0 H Lymph # 0.8 L [place] # 1.4 H Eos # Baso # Seg Neutrophils % 80.6 H Seg Neuts % (Manual) Lymphocytes % (Manual) Seg Neutrophils # 9.5 H Seg Neutrophils # Man Lymphocytes # (Manual) PT INR APTT Heparin Anti-Xa Level POC ABG pH POC ABG pCO2 POC ABG pO2 Sodium Potassium Chloride Carbon Dioxide BUN Creatinine Glucose POC Glucose 175 H Hemoglobin A1c Lactic Acid 3.70 H* Calcium Phosphorus AST Alkaline Phosphatase NT-Pro-B Natriuret Pep Total Protein Albumin Urine WBC (Auto) Crossmatch 10/08/18 10/08/18 10/08/18 05:07 06:05 07:14 WBC RBC Hgb Hct MCH RDW Plt Count Lymph % (Auto) [place] % (Auto) Lymph # [place] # Eos # Baso # Seg Neutrophils % Seg Neuts % (Manual) Lymphocytes % (Manual) Seg Neutrophils # Seg Neutrophils # Man Lymphocytes # (Manual) PT INR APTT Heparin Anti-Xa Level POC ABG pH POC ABG pCO2 POC ABG pO2 Sodium Potassium Chloride Carbon Dioxide BUN Creatinine Glucose POC Glucose 125 H 122 H 147 H Hemoglobin A1c Lactic Acid Calcium Phosphorus AST Alkaline Phosphatase NT-Pro-B Natriuret Pep Total Protein Albumin Urine WBC (Auto) Crossmatch 10/08/18 10/08/18 10/08/18 07:22 08:09 08:47 WBC RBC Hgb Hct MCH RDW Plt Count Lymph % (Auto) [place] % (Auto) Lymph # [place] # Eos # Baso # Seg Neutrophils % Seg Neuts % (Manual) Lymphocytes % (Manual) Seg Neutrophils # Seg Neutrophils # Man Lymphocytes # (Manual) PT INR APTT Heparin Anti-Xa Level POC ABG pH POC ABG pCO2 POC ABG pO2 Sodium Potassium 5.2 H Chloride 112.4 H Carbon Dioxide 17 L BUN 32 H Creatinine 2.1 H Glucose 148 H POC Glucose 134 H 148 H Hemoglobin A1c Lactic Acid Calcium 6.6 L Phosphorus AST Alkaline Phosphatase NT-Pro-B Natriuret Pep Total Protein Albumin Urine WBC (Auto) Crossmatch 10/08/18 10/08/18 10/08/18 10:21 13:29 14:21 WBC RBC Hgb Hct MCH RDW Plt Count Lymph % (Auto) [place] % (Auto) Lymph # [place] # Eos # Baso # Seg Neutrophils % Seg Neuts % (Manual) Lymphocytes % (Manual) Seg Neutrophils # Seg Neutrophils # Man Lymphocytes # (Manual) PT INR APTT Heparin Anti-Xa Level POC ABG pH POC ABG pCO2 POC ABG pO2 Sodium Potassium Chloride Carbon Dioxide BUN Creatinine Glucose POC Glucose 115 H 109 H 118 H Hemoglobin A1c Lactic Acid Calcium Phosphorus AST Alkaline Phosphatase NT-Pro-B Natriuret Pep Total Protein Albumin Urine WBC (Auto) Crossmatch 10/08/18 10/08/18 10/08/18 15:27 17:00 17:00 WBC 11.3 H RBC 3.21 L Hgb 7.9 L Hct 25.7 L MCH 25 L RDW 21.8 H Plt Count Lymph % (Auto) 8.5 L [place] % (Auto) 7.7 H Lymph # 1.0 L [place] # 0.9 H Eos # Baso # Seg Neutrophils % 82.8 H Seg Neuts % (Manual) Lymphocytes % (Manual) Seg Neutrophils # 9.3 H Seg Neutrophils # Man Lymphocytes # (Manual) PT INR APTT Heparin Anti-Xa Level POC ABG pH POC ABG pCO2 POC ABG pO2 Sodium Potassium Chloride Carbon Dioxide BUN Creatinine Glucose POC Glucose 129 H Hemoglobin A1c Lactic Acid Calcium Phosphorus AST Alkaline Phosphatase NT-Pro-B Natriuret Pep 3097 H Total Protein Albumin Urine WBC (Auto) Crossmatch 10/08/18 10/08/18 10/08/18 17:07 17:12 18:22 WBC RBC Hgb Hct MCH RDW Plt Count Lymph % (Auto) [place] % (Auto) Lymph # [place] # Eos # Baso # Seg Neutrophils % Seg Neuts % (Manual) Lymphocytes % (Manual) Seg Neutrophils # Seg Neutrophils # Man Lymphocytes # (Manual) PT INR APTT Heparin Anti-Xa Level POC ABG pH 7.337 L POC ABG pCO2 32.0 L POC ABG pO2 130 H Sodium Potassium Chloride 115.5 H Carbon Dioxide 17 L BUN 30 H Creatinine 1.9 H Glucose 103 H POC Glucose 119 H Hemoglobin A1c Lactic Acid Calcium 6.9 L Phosphorus AST Alkaline Phosphatase NT-Pro-B Natriuret Pep Total Protein Albumin Urine WBC (Auto) Crossmatch 10/08/18 10/08/18 10/09/18 20:09 20:57 01:10 WBC RBC Hgb Hct MCH RDW Plt Count Lymph % (Auto) [place] % (Auto) Lymph # [place] # Eos # Baso # Seg Neutrophils % Seg Neuts % (Manual) Lymphocytes % (Manual) Seg Neutrophils # Seg Neutrophils # Man Lymphocytes # (Manual) PT INR APTT Heparin Anti-Xa Level POC ABG pH POC ABG pCO2 POC ABG pO2 Sodium Potassium Chloride 114.3 H 113.7 H Carbon Dioxide 15 L 14 L BUN 29 H 29 H Creatinine 2.1 H 2.0 H Glucose 132 H 39 L* POC Glucose 150 H Hemoglobin A1c Lactic Acid Calcium 6.7 L 6.9 L Phosphorus AST Alkaline Phosphatase NT-Pro-B Natriuret Pep Total Protein Albumin Urine WBC (Auto) Crossmatch 10/09/18 10/09/18 10/09/18 01:10 01:43 03:20 WBC RBC Hgb Hct MCH RDW Plt Count Lymph % (Auto) [place] % (Auto) Lymph # [place] # Eos # Baso # Seg Neutrophils % Seg Neuts % (Manual) Lymphocytes % (Manual) Seg Neutrophils # Seg Neutrophils # Man Lymphocytes # (Manual) PT INR APTT Heparin Anti-Xa Level POC ABG pH POC ABG pCO2 POC ABG pO2 Sodium Potassium Chloride Carbon Dioxide BUN Creatinine Glucose POC Glucose < 40 L < 40 L Hemoglobin A1c Lactic Acid Calcium Phosphorus AST Alkaline Phosphatase NT-Pro-B Natriuret Pep 2865 H Total Protein Albumin Urine WBC (Auto) Crossmatch 10/09/18 10/09/18 10/09/18 04:23 05:03 05:25 WBC RBC Hgb Hct MCH RDW Plt Count Lymph % (Auto) [place] % (Auto) Lymph # [place] # Eos # Baso # Seg Neutrophils % Seg Neuts % (Manual) Lymphocytes % (Manual) Seg Neutrophils # Seg Neutrophils # Man Lymphocytes # (Manual) PT INR APTT Heparin Anti-Xa Level POC ABG pH POC ABG pCO2 30.6 L 32.3 L POC ABG pO2 118 H Sodium Potassium Chloride Carbon Dioxide BUN Creatinine Glucose POC Glucose 148 H Hemoglobin A1c Lactic Acid Calcium Phosphorus AST Alkaline Phosphatase NT-Pro-B Natriuret Pep Total Protein Albumin Urine WBC (Auto) Crossmatch 10/09/18 10/09/18 10/09/18 06:00 08:34 09:58 WBC RBC Hgb Hct MCH RDW Plt Count Lymph % (Auto) [place] % (Auto) Lymph # [place] # Eos # Baso # Seg Neutrophils % Seg Neuts % (Manual) Lymphocytes % (Manual) Seg Neutrophils # Seg Neutrophils # Man Lymphocytes # (Manual) PT INR APTT Heparin Anti-Xa Level POC ABG pH POC ABG pCO2 POC ABG pO2 Sodium Potassium Chloride Carbon Dioxide BUN Creatinine Glucose POC Glucose 173 H 196 H 183 H Hemoglobin A1c Lactic Acid Calcium Phosphorus AST Alkaline Phosphatase NT-Pro-B Natriuret Pep Total Protein Albumin Urine WBC (Auto) Crossmatch 10/09/18 10/09/18 10/09/18 12:25 12:46 18:16 WBC RBC Hgb Hct MCH RDW Plt Count Lymph % (Auto) [place] % (Auto) Lymph # [place] # Eos # Baso # Seg Neutrophils % Seg Neuts % (Manual) Lymphocytes % (Manual) Seg Neutrophils # Seg Neutrophils # Man Lymphocytes # (Manual) PT INR APTT Heparin Anti-Xa Level POC ABG pH POC ABG pCO2 POC ABG pO2 Sodium Potassium Chloride 110.3 H Carbon Dioxide 16 L BUN 24 H Creatinine 1.8 H Glucose 207 H POC Glucose 208 H 177 H Hemoglobin A1c Lactic Acid Calcium 6.9 L Phosphorus AST Alkaline Phosphatase NT-Pro-B Natriuret Pep Total Protein Albumin Urine WBC (Auto) Crossmatch 10/09/18 10/10/18 10/10/18 21:11 00:11 05:41 WBC RBC Hgb Hct MCH RDW Plt Count Lymph % (Auto) [place] % (Auto) Lymph # [place] # Eos # Baso # Seg Neutrophils % Seg Neuts % (Manual) Lymphocytes % (Manual) Seg Neutrophils # Seg Neutrophils # Man Lymphocytes # (Manual) PT INR APTT Heparin Anti-Xa Level POC ABG pH POC ABG pCO2 POC ABG pO2 Sodium Potassium Chloride Carbon Dioxide BUN Creatinine Glucose POC Glucose 124 H 156 H 42 L Hemoglobin A1c Lactic Acid Calcium Phosphorus AST Alkaline Phosphatase NT-Pro-B Natriuret Pep Total Protein Albumin Urine WBC (Auto) Crossmatch 10/10/18 10/10/18 10/10/18 05:45 07:28 12:07 WBC RBC Hgb Hct MCH RDW Plt Count Lymph % (Auto) [place] % (Auto) Lymph # [place] # Eos # Baso # Seg Neutrophils % Seg Neuts % (Manual) Lymphocytes % (Manual) Seg Neutrophils # Seg Neutrophils # Man Lymphocytes # (Manual) PT INR APTT Heparin Anti-Xa Level POC ABG pH POC ABG pCO2 POC ABG pO2 Sodium 146 H D Potassium Chloride 111.2 H Carbon Dioxide BUN 21 H Creatinine 1.8 H Glucose 44 L POC Glucose 114 H 49 L Hemoglobin A1c Lactic Acid Calcium 7.4 L Phosphorus AST Alkaline Phosphatase NT-Pro-B Natriuret Pep Total Protein Albumin Urine WBC (Auto) Crossmatch 10/10/18 10/10/18 10/10/18 12:37 18:02 20:47 WBC RBC Hgb Hct MCH RDW Plt Count Lymph % (Auto) [place] % (Auto) Lymph # [place] # Eos # Baso # Seg Neutrophils % Seg Neuts % (Manual) Lymphocytes % (Manual) Seg Neutrophils # Seg Neutrophils # Man Lymphocytes # (Manual) PT INR APTT Heparin Anti-Xa Level POC ABG pH POC ABG pCO2 POC ABG pO2 Sodium Potassium Chloride Carbon Dioxide BUN Creatinine Glucose POC Glucose 142 H 49 L 162 H Hemoglobin A1c Lactic Acid Calcium Phosphorus AST Alkaline Phosphatase NT-Pro-B Natriuret Pep Total Protein Albumin Urine WBC (Auto) Crossmatch 10/10/18 10/10/18 10/10/18 21:45 22:19 23:50 WBC RBC Hgb Hct MCH RDW Plt Count Lymph % (Auto) [place] % (Auto) Lymph # [place] # Eos # Baso # Seg Neutrophils % Seg Neuts % (Manual) Lymphocytes % (Manual) Seg Neutrophils # Seg Neutrophils # Man Lymphocytes # (Manual) PT INR APTT Heparin Anti-Xa Level POC ABG pH 7.334 L POC ABG pCO2 47.0 H POC ABG pO2 53 L 79 L Sodium Potassium Chloride Carbon Dioxide BUN Creatinine Glucose POC Glucose 185 H Hemoglobin A1c Lactic Acid Calcium Phosphorus AST Alkaline Phosphatase NT-Pro-B Natriuret Pep Total Protein Albumin Urine WBC (Auto) Crossmatch 10/11/18 10/11/18 10/11/18 05:00 06:41 07:17 WBC RBC Hgb Hct MCH RDW Plt Count Lymph % (Auto) [place] % (Auto) Lymph # [place] # Eos # Baso # Seg Neutrophils % Seg Neuts % (Manual) Lymphocytes % (Manual) Seg Neutrophils # Seg Neutrophils # Man Lymphocytes # (Manual) PT INR APTT Heparin Anti-Xa Level POC ABG pH POC ABG pCO2 POC ABG pO2 Sodium Potassium Chloride Carbon Dioxide BUN Creatinine 1.7 H Glucose 43 L POC Glucose 48 L 129 H Hemoglobin A1c Lactic Acid Calcium 7.7 L Phosphorus AST Alkaline Phosphatase NT-Pro-B Natriuret Pep Total Protein Albumin Urine WBC (Auto) Crossmatch 10/11/18 10/11/18 10/11/18 11:14 13:32 14:25 WBC RBC 3.32 L Hgb 8.2 L Hct 26.4 L MCH 25 L RDW 21.6 H Plt Count Lymph % (Auto) [place] % (Auto) Lymph # [place] # Eos # Baso # Seg Neutrophils % Seg Neuts % (Manual) Lymphocytes % (Manual) Seg Neutrophils # Seg Neutrophils # Man Lymphocytes # (Manual) PT 21.7 H INR 1.76 H APTT 50.5 H Heparin Anti-Xa Level POC ABG pH POC ABG pCO2 POC ABG pO2 Sodium Potassium Chloride Carbon Dioxide BUN Creatinine Glucose POC Glucose 138 H Hemoglobin A1c Lactic Acid Calcium Phosphorus AST Alkaline Phosphatase NT-Pro-B Natriuret Pep Total Protein Albumin Urine WBC (Auto) Crossmatch 10/11/18 10/11/18 10/11/18 14:25 15:41 17:31 WBC RBC Hgb Hct MCH RDW Plt Count Lymph % (Auto) [place] % (Auto) Lymph # [place] # Eos # Baso # Seg Neutrophils % Seg Neuts % (Manual) Lymphocytes % (Manual) Seg Neutrophils # Seg Neutrophils # Man Lymphocytes # (Manual) PT 20.6 H INR 1.65 H APTT 54.9 H Heparin Anti-Xa Level POC ABG pH POC ABG pCO2 POC ABG pO2 53 L Sodium Potassium Chloride Carbon Dioxide BUN Creatinine Glucose POC Glucose 133 H Hemoglobin A1c Lactic Acid Calcium Phosphorus AST Alkaline Phosphatase NT-Pro-B Natriuret Pep Total Protein Albumin Urine WBC (Auto) Crossmatch 10/12/18 10/12/18 10/12/18 00:30 03:56 04:25 WBC RBC Hgb Hct MCH RDW Plt Count Lymph % (Auto) [place] % (Auto) Lymph # [place] # Eos # Baso # Seg Neutrophils % Seg Neuts % (Manual) Lymphocytes % (Manual) Seg Neutrophils # Seg Neutrophils # Man Lymphocytes # (Manual) PT INR APTT Heparin Anti-Xa Level POC ABG pH 7.514 H POC ABG pCO2 31.2 L POC ABG pO2 Sodium Potassium Chloride Carbon Dioxide BUN Creatinine 1.6 H Glucose 287 H POC Glucose 353 H Hemoglobin A1c Lactic Acid Calcium 8.0 L Phosphorus AST Alkaline Phosphatase NT-Pro-B Natriuret Pep Total Protein Albumin Urine WBC (Auto) Crossmatch 10/12/18 10/12/18 10/12/18 04:49 12:13 17:53 WBC RBC Hgb Hct MCH RDW Plt Count Lymph % (Auto) [place] % (Auto) Lymph # [place] # Eos # Baso # Seg Neutrophils % Seg Neuts % (Manual) Lymphocytes % (Manual) Seg Neutrophils # Seg Neutrophils # Man Lymphocytes # (Manual) PT INR APTT Heparin Anti-Xa Level POC ABG pH POC ABG pCO2 POC ABG pO2 Sodium Potassium Chloride Carbon Dioxide BUN Creatinine Glucose POC Glucose 297 H 290 H 211 H Hemoglobin A1c Lactic Acid Calcium Phosphorus AST Alkaline Phosphatase NT-Pro-B Natriuret Pep Total Protein Albumin Urine WBC (Auto) Crossmatch 10/12/18 10/12/18 10/13/18 18:57 21:35 04:50 WBC 11.8 H RBC 3.08 L Hgb 7.4 L Hct 24.2 L MCH 24 L RDW 21.5 H Plt Count Lymph % (Auto) [place] % (Auto) Lymph # [place] # Eos # Baso # Seg Neutrophils % Seg Neuts % (Manual) Lymphocytes % (Manual) Seg Neutrophils # Seg Neutrophils # Man Lymphocytes # (Manual) PT INR APTT Heparin Anti-Xa Level 1.74 H POC ABG pH 7.497 H POC ABG pCO2 33.2 L POC ABG pO2 71 L Sodium Potassium Chloride Carbon Dioxide BUN Creatinine Glucose POC Glucose Hemoglobin A1c Lactic Acid Calcium Phosphorus AST Alkaline Phosphatase NT-Pro-B Natriuret Pep Total Protein Albumin Urine WBC (Auto) Crossmatch 10/13/18 10/13/18 10/13/18 05:25 05:25 05:37 WBC 12.1 H RBC 3.02 L Hgb 7.4 L Hct 23.7 L MCH 25 L RDW 21.0 H Plt Count Lymph % (Auto) 9.6 L [place] % (Auto) 10.0 H Lymph # [place] # 1.2 H Eos # Baso # Seg Neutrophils % 76.2 H Seg Neuts % (Manual) Lymphocytes % (Manual) Seg Neutrophils # 9.2 H Seg Neutrophils # Man Lymphocytes # (Manual) PT INR APTT Heparin Anti-Xa Level POC ABG pH POC ABG pCO2 POC ABG pO2 Sodium Potassium Chloride Carbon Dioxide BUN Creatinine 1.6 H Glucose 175 H POC Glucose 165 H Hemoglobin A1c Lactic Acid Calcium 8.3 L Phosphorus AST Alkaline Phosphatase NT-Pro-B Natriuret Pep Total Protein Albumin Urine WBC (Auto) Crossmatch 10/13/18 10/13/18 10/13/18 06:45 11:12 17:19 WBC RBC Hgb Hct MCH RDW Plt Count Lymph % (Auto) [place] % (Auto) Lymph # [place] # Eos # Baso # Seg Neutrophils % Seg Neuts % (Manual) Lymphocytes % (Manual) Seg Neutrophils # Seg Neutrophils # Man Lymphocytes # (Manual) PT 17.4 H INR 1.34 H APTT Heparin Anti-Xa Level POC ABG pH POC ABG pCO2 POC ABG pO2 Sodium Potassium Chloride Carbon Dioxide BUN Creatinine Glucose POC Glucose 223 H 129 H Hemoglobin A1c Lactic Acid Calcium Phosphorus AST Alkaline Phosphatase NT-Pro-B Natriuret Pep Total Protein Albumin Urine WBC (Auto) Crossmatch 10/13/18 10/14/18 10/14/18 23:39 05:01 06:14 WBC RBC Hgb Hct MCH RDW Plt Count Lymph % (Auto) [place] % (Auto) Lymph # [place] # Eos # Baso # Seg Neutrophils % Seg Neuts % (Manual) Lymphocytes % (Manual) Seg Neutrophils # Seg Neutrophils # Man Lymphocytes # (Manual) PT INR APTT Heparin Anti-Xa Level POC ABG pH POC ABG pCO2 POC ABG pO2 Sodium Potassium Chloride Carbon Dioxide BUN Creatinine 1.5 H Glucose 264 H POC Glucose 171 H 226 H Hemoglobin A1c Lactic Acid Calcium 8.0 L Phosphorus AST Alkaline Phosphatase NT-Pro-B Natriuret Pep Total Protein Albumin Urine WBC (Auto) Crossmatch 10/14/18 10/14/18 10/14/18 06:14 12:24 19:33 WBC RBC Hgb Hct MCH RDW Plt Count Lymph % (Auto) [place] % (Auto) Lymph # [place] # Eos # Baso # Seg Neutrophils % Seg Neuts % (Manual) Lymphocytes % (Manual) Seg Neutrophils # Seg Neutrophils # Man Lymphocytes # (Manual) PT 22.1 H INR 1.80 H APTT Heparin Anti-Xa Level POC ABG pH POC ABG pCO2 POC ABG pO2 Sodium Potassium Chloride Carbon Dioxide BUN Creatinine Glucose POC Glucose 403 H 164 H Hemoglobin A1c Lactic Acid Calcium Phosphorus AST Alkaline Phosphatase NT-Pro-B Natriuret Pep Total Protein Albumin Urine WBC (Auto) Crossmatch 10/15/18 10/15/18 10/15/18 00:29 06:03 07:00 WBC RBC Hgb Hct MCH RDW Plt Count Lymph % (Auto) [place] % (Auto) Lymph # [place] # Eos # Baso # Seg Neutrophils % Seg Neuts % (Manual) Lymphocytes % (Manual) Seg Neutrophils # Seg Neutrophils # Man Lymphocytes # (Manual) PT INR APTT Heparin Anti-Xa Level POC ABG pH POC ABG pCO2 POC ABG pO2 Sodium Potassium Chloride Carbon Dioxide BUN 20 H Creatinine 1.7 H Glucose 308 H POC Glucose 237 H 282 H Hemoglobin A1c Lactic Acid Calcium 7.6 L Phosphorus AST Alkaline Phosphatase NT-Pro-B Natriuret Pep Total Protein Albumin Urine WBC (Auto) Crossmatch 10/15/18 10/15/18 10/15/18 07:00 08:03 10:27 WBC RBC Hgb 5.8 L* Hct 18.5 L* MCH RDW Plt Count Lymph % (Auto) [place] % (Auto) Lymph # [place] # Eos # Baso # Seg Neutrophils % Seg Neuts % (Manual) Lymphocytes % (Manual) Seg Neutrophils # Seg Neutrophils # Man Lymphocytes # (Manual) PT 46.1 H INR 4.52 H APTT Heparin Anti-Xa Level 0.25 L POC ABG pH POC ABG pCO2 POC ABG pO2 Sodium Potassium Chloride Carbon Dioxide BUN Creatinine Glucose POC Glucose Hemoglobin A1c Lactic Acid Calcium Phosphorus AST Alkaline Phosphatase NT-Pro-B Natriuret Pep Total Protein Albumin Urine WBC (Auto) Crossmatch See Detail 10/15/18 10/15/18 10/16/18 14:03 15:30 10:18 WBC RBC Hgb Hct MCH RDW Plt Count Lymph % (Auto) [place] % (Auto) Lymph # [place] # Eos # Baso # Seg Neutrophils % Seg Neuts % (Manual) Lymphocytes % (Manual) Seg Neutrophils # Seg Neutrophils # Man Lymphocytes # (Manual) PT 53.8 H INR 5.48 H* APTT Heparin Anti-Xa Level POC ABG pH POC ABG pCO2 POC ABG pO2 Sodium Potassium Chloride Carbon Dioxide BUN Creatinine Glucose POC Glucose 336 H 259 H Hemoglobin A1c Lactic Acid Calcium Phosphorus AST Alkaline Phosphatase NT-Pro-B Natriuret Pep Total Protein Albumin Urine WBC (Auto) Crossmatch 10/16/18 10/16/18 10/16/18 10:18 10:18 13:03 WBC 14.8 H RBC 3.03 L Hgb 8.2 L Hct 24.9 L D MCH 27 L RDW 19.2 H Plt Count Lymph % (Auto) 5.7 L [place] % (Auto) Lymph # 0.8 L [place] # 1.1 H Eos # Baso # 0.2 H Seg Neutrophils % 84.3 H Seg Neuts % (Manual) Lymphocytes % (Manual) Seg Neutrophils # 12.5 H Seg Neutrophils # Man Lymphocytes # (Manual) PT INR APTT Heparin Anti-Xa Level POC ABG pH POC ABG pCO2 POC ABG pO2 Sodium Potassium Chloride Carbon Dioxide 20 L BUN 21 H Creatinine 1.5 H Glucose 326 H POC Glucose 329 H Hemoglobin A1c Lactic Acid Calcium 7.8 L Phosphorus AST Alkaline Phosphatase NT-Pro-B Natriuret Pep Total Protein Albumin Urine WBC (Auto) Crossmatch 10/16/18 10/17/18 10/17/18 13:27 00:35 05:00 WBC RBC Hgb Hct MCH RDW Plt Count Lymph % (Auto) [place] % (Auto) Lymph # [place] # Eos # Baso # Seg Neutrophils % Seg Neuts % (Manual) Lymphocytes % (Manual) Seg Neutrophils # Seg Neutrophils # Man Lymphocytes # (Manual) PT 55.4 H 60.2 H INR 5.68 H* 6.30 H* APTT Heparin Anti-Xa Level POC ABG pH POC ABG pCO2 POC ABG pO2 Sodium Potassium Chloride Carbon Dioxide BUN Creatinine Glucose POC Glucose 407 H Hemoglobin A1c Lactic Acid Calcium Phosphorus AST Alkaline Phosphatase NT-Pro-B Natriuret Pep Total Protein Albumin Urine WBC (Auto) Crossmatch 10/17/18 10/17/18 10/17/18 05:00 05:00 05:29 WBC 11.6 H RBC 2.99 L Hgb 8.0 L Hct 24.2 L MCH 27 L RDW 19.2 H Plt Count Lymph % (Auto) [place] % (Auto) Lymph # [place] # Eos # Baso # Seg Neutrophils % Seg Neuts % (Manual) 87.0 H Lymphocytes % (Manual) 9.0 L Seg Neutrophils # Seg Neutrophils # Man 10.1 H Lymphocytes # (Manual) 1.0 L PT INR APTT Heparin Anti-Xa Level POC ABG pH POC ABG pCO2 POC ABG pO2 Sodium Potassium 3.4 L D Chloride Carbon Dioxide BUN Creatinine 1.4 H Glucose 170 H POC Glucose 156 H Hemoglobin A1c Lactic Acid Calcium 7.6 L Phosphorus AST Alkaline Phosphatase NT-Pro-B Natriuret Pep Total Protein 5.4 L Albumin 2.2 L Urine WBC (Auto) Crossmatch 10/17/18 10/17/18 10/18/18 11:59 17:06 00:21 WBC RBC Hgb Hct MCH RDW Plt Count Lymph % (Auto) [place] % (Auto) Lymph # [place] # Eos # Baso # Seg Neutrophils % Seg Neuts % (Manual) Lymphocytes % (Manual) Seg Neutrophils # Seg Neutrophils # Man Lymphocytes # (Manual) PT INR APTT Heparin Anti-Xa Level POC ABG pH POC ABG pCO2 POC ABG pO2 Sodium Potassium Chloride Carbon Dioxide BUN Creatinine Glucose POC Glucose 389 H 151 H 355 H Hemoglobin A1c Lactic Acid Calcium Phosphorus AST Alkaline Phosphatase NT-Pro-B Natriuret Pep Total Protein Albumin Urine WBC (Auto) Crossmatch 05/14/19 05/14/19 05/14/19 04:17 04:17 04:17 WBC RBC 3.01 L Hgb 8.1 L Hct 24.6 L MCH 27 L RDW 19.7 H Plt Count Lymph % (Auto) 12.7 L [place] % (Auto) Lymph # [place] # Eos # Baso # Seg Neutrophils % 76.3 H Seg Neuts % (Manual) Lymphocytes % (Manual) Seg Neutrophils # 8.2 H Seg Neutrophils # Man Lymphocytes # (Manual) PT 39.5 H INR 3.72 H APTT Heparin Anti-Xa Level POC ABG pH POC ABG pCO2 POC ABG pO2 Sodium Potassium 3.5 L Chloride Carbon Dioxide BUN Creatinine 1.5 H Glucose 115 H POC Glucose Hemoglobin A1c Lactic Acid Calcium 7.4 L Phosphorus AST Alkaline Phosphatase NT-Pro-B Natriuret Pep Total Protein Albumin Urine WBC (Auto) Crossmatch 10/18/18 10/18/18 10/18/18 06:45 13:39 17:12 WBC RBC Hgb Hct MCH RDW Plt Count Lymph % (Auto) [place] % (Auto) Lymph # [place] # Eos # Baso # Seg Neutrophils % Seg Neuts % (Manual) Lymphocytes % (Manual) Seg Neutrophils # Seg Neutrophils # Man Lymphocytes # (Manual) PT INR APTT Heparin Anti-Xa Level POC ABG pH POC ABG pCO2 POC ABG pO2 Sodium Potassium Chloride Carbon Dioxide BUN Creatinine Glucose POC Glucose 170 H 415 H 377 H Hemoglobin A1c Lactic Acid Calcium Phosphorus AST Alkaline Phosphatase NT-Pro-B Natriuret Pep Total Protein Albumin Urine WBC (Auto) Crossmatch 10/19/18 10/19/18 10/19/18 00:48 05:35 05:52 WBC RBC 2.84 L Hgb 7.7 L Hct 23.2 L MCH 27 L RDW 19.8 H Plt Count Lymph % (Auto) 11.0 L [place] % (Auto) Lymph # 1.1 L [place] # Eos # Baso # Seg Neutrophils % 78.5 H Seg Neuts % (Manual) Lymphocytes % (Manual) Seg Neutrophils # 8.1 H Seg Neutrophils # Man Lymphocytes # (Manual) PT INR APTT Heparin Anti-Xa Level POC ABG pH POC ABG pCO2 POC ABG pO2 Sodium Potassium Chloride Carbon Dioxide BUN Creatinine Glucose POC Glucose 308 H 116 H Hemoglobin A1c Lactic Acid Calcium Phosphorus AST Alkaline Phosphatase NT-Pro-B Natriuret Pep Total Protein Albumin Urine WBC (Auto) Crossmatch 10/19/18 10/19/18 10/19/18 05:52 07:12 09:41 WBC RBC Hgb 8.1 L Hct 24.6 L MCH RDW Plt Count Lymph % (Auto) [place] % (Auto) Lymph # [place] # Eos # Baso # Seg Neutrophils % Seg Neuts % (Manual) Lymphocytes % (Manual) Seg Neutrophils # Seg Neutrophils # Man Lymphocytes # (Manual) PT 18.1 H INR 1.40 H APTT Heparin Anti-Xa Level POC ABG pH POC ABG pCO2 POC ABG pO2 Sodium Potassium Chloride Carbon Dioxide BUN 21 H Creatinine 1.6 H Glucose 128 H POC Glucose Hemoglobin A1c Lactic Acid Calcium 7.7 L Phosphorus AST Alkaline Phosphatase NT-Pro-B Natriuret Pep Total Protein Albumin Urine WBC (Auto) Crossmatch 10/19/18 10/19/18 10/19/18 09:41 11:46 12:26 WBC RBC Hgb Hct MCH RDW Plt Count Lymph % (Auto) [place] % (Auto) Lymph # [place] # Eos # Baso # Seg Neutrophils % Seg Neuts % (Manual) Lymphocytes % (Manual) Seg Neutrophils # Seg Neutrophils # Man Lymphocytes # (Manual) PT 17.7 H INR 1.36 H APTT Heparin Anti-Xa Level 0.19 L POC ABG pH POC ABG pCO2 POC ABG pO2 Sodium Potassium Chloride Carbon Dioxide BUN Creatinine Glucose POC Glucose 212 H Hemoglobin A1c Lactic Acid Calcium Phosphorus AST Alkaline Phosphatase NT-Pro-B Natriuret Pep Total Protein Albumin Urine WBC (Auto) Crossmatch 10/19/18 10/19/18 10/19/18 16:12 19:56 22:09 WBC RBC Hgb Hct MCH RDW Plt Count Lymph % (Auto) [place] % (Auto) Lymph # [place] # Eos # Baso # Seg Neutrophils % Seg Neuts % (Manual) Lymphocytes % (Manual) Seg Neutrophils # Seg Neutrophils # Man Lymphocytes # (Manual) PT INR APTT Heparin Anti-Xa Level POC ABG pH 7.458 H POC ABG pCO2 POC ABG pO2 63 L Sodium Potassium Chloride Carbon Dioxide BUN Creatinine Glucose POC Glucose 260 H 216 H Hemoglobin A1c Lactic Acid Calcium Phosphorus AST Alkaline Phosphatase NT-Pro-B Natriuret Pep Total Protein Albumin Urine WBC (Auto) Crossmatch 10/20/18 10/20/18 10/20/18 03:00 03:00 03:00 WBC 14.8 H RBC 2.81 L Hgb 7.5 L Hct 23.1 L MCH 27 L RDW 20.0 H Plt Count Lymph % (Auto) 11.5 L [place] % (Auto) Lymph # [place] # 0.9 H Eos # Baso # Seg Neutrophils % 79.7 H Seg Neuts % (Manual) Lymphocytes % (Manual) Seg Neutrophils # 11.8 H Seg Neutrophils # Man Lymphocytes # (Manual) PT 16.9 H INR 1.29 H APTT Heparin Anti-Xa Level 0.24 L POC ABG pH POC ABG pCO2 POC ABG pO2 Sodium Potassium Chloride 97.8 L Carbon Dioxide BUN 20 H Creatinine 1.5 H Glucose 206 H POC Glucose Hemoglobin A1c Lactic Acid Calcium 7.8 L Phosphorus AST Alkaline Phosphatase NT-Pro-B Natriuret Pep Total Protein Albumin Urine WBC (Auto) Crossmatch 10/20/18 10/20/18 10/20/18 06:59 10:20 10:59 WBC RBC Hgb Hct MCH RDW Plt Count Lymph % (Auto) [place] % (Auto) Lymph # [place] # Eos # Baso # Seg Neutrophils % Seg Neuts % (Manual) Lymphocytes % (Manual) Seg Neutrophils # Seg Neutrophils # Man Lymphocytes # (Manual) PT 15.5 H INR 1.16 H APTT Heparin Anti-Xa Level < 0.10 L POC ABG pH POC ABG pCO2 POC ABG pO2 Sodium Potassium Chloride Carbon Dioxide BUN Creatinine Glucose POC Glucose 348 H 227 H Hemoglobin A1c Lactic Acid Calcium Phosphorus AST Alkaline Phosphatase NT-Pro-B Natriuret Pep Total Protein Albumin Urine WBC (Auto) Crossmatch 10/20/18 10/20/18 10/21/18 16:15 17:14 00:53 WBC RBC Hgb Hct MCH RDW Plt Count Lymph % (Auto) [place] % (Auto) Lymph # [place] # Eos # Baso # Seg Neutrophils % Seg Neuts % (Manual) Lymphocytes % (Manual) Seg Neutrophils # Seg Neutrophils # Man Lymphocytes # (Manual) PT INR APTT Heparin Anti-Xa Level 0.24 L POC ABG pH POC ABG pCO2 POC ABG pO2 Sodium Potassium Chloride Carbon Dioxide BUN Creatinine Glucose POC Glucose 279 H 136 H Hemoglobin A1c Lactic Acid Calcium Phosphorus AST Alkaline Phosphatase NT-Pro-B Natriuret Pep Total Protein Albumin Urine WBC (Auto) Crossmatch 10/21/18 10/21/18 10/21/18 05:45 05:45 05:45 WBC 15.8 H RBC 2.79 L Hgb 7.5 L Hct 22.9 L MCH 27 L RDW 19.8 H Plt Count Lymph % (Auto) 7.2 L [place] % (Auto) Lymph # 1.1 L [place] # Eos # Baso # Seg Neutrophils % 85.7 H Seg Neuts % (Manual) Lymphocytes % (Manual) Seg Neutrophils # 13.5 H Seg Neutrophils # Man Lymphocytes # (Manual) PT 16.9 H INR 1.29 H APTT Heparin Anti-Xa Level POC ABG pH POC ABG pCO2 POC ABG pO2 Sodium Potassium Chloride Carbon Dioxide BUN 18 H Creatinine 1.4 H Glucose 339 H POC Glucose Hemoglobin A1c Lactic Acid Calcium 8.3 L Phosphorus AST Alkaline Phosphatase NT-Pro-B Natriuret Pep Total Protein Albumin Urine WBC (Auto) Crossmatch 10/21/18 10/21/18 10/21/18 08:00 10:13 11:00 WBC RBC Hgb Hct MCH RDW Plt Count Lymph % (Auto) [place] % (Auto) Lymph # [place] # Eos # Baso # Seg Neutrophils % Seg Neuts % (Manual) Lymphocytes % (Manual) Seg Neutrophils # Seg Neutrophils # Man Lymphocytes # (Manual) PT INR APTT Heparin Anti-Xa Level POC ABG pH POC ABG pCO2 POC ABG pO2 Sodium Potassium Chloride Carbon Dioxide BUN Creatinine Glucose POC Glucose 398 H 295 H Hemoglobin A1c Lactic Acid Calcium Phosphorus AST Alkaline Phosphatase NT-Pro-B Natriuret Pep Total Protein Albumin Urine WBC (Auto) 125.0 H Crossmatch 10/21/18 10/21/18 10/21/18 11:18 17:20 17:52 WBC RBC Hgb Hct MCH RDW Plt Count Lymph % (Auto) [place] % (Auto) Lymph # [place] # Eos # Baso # Seg Neutrophils % Seg Neuts % (Manual) Lymphocytes % (Manual) Seg Neutrophils # Seg Neutrophils # Man Lymphocytes # (Manual) PT 17.2 H INR 1.32 H APTT 40.0 H Heparin Anti-Xa Level POC ABG pH POC ABG pCO2 POC ABG pO2 Sodium Potassium Chloride Carbon Dioxide BUN Creatinine Glucose POC Glucose 235 H 271 H Hemoglobin A1c Lactic Acid Calcium Phosphorus AST Alkaline Phosphatase NT-Pro-B Natriuret Pep Total Protein Albumin Urine WBC (Auto) Crossmatch 10/21/18 10/22/18 10/22/18 23:41 00:47 04:39 WBC 16.1 H RBC 2.69 L Hgb 6.7 L 7.3 L Hct 19.8 L* 22.3 L MCH 27 L RDW 20.4 H Plt Count Lymph % (Auto) 6.9 L [place] % (Auto) Lymph # 1.1 L [place] # 1.0 H Eos # Baso # Seg Neutrophils % 85.3 H Seg Neuts % (Manual) Lymphocytes % (Manual) Seg Neutrophils # 13.8 H Seg Neutrophils # Man Lymphocytes # (Manual) PT INR APTT Heparin Anti-Xa Level POC ABG pH POC ABG pCO2 POC ABG pO2 Sodium Potassium Chloride Carbon Dioxide BUN Creatinine Glucose POC Glucose 157 H Hemoglobin A1c Lactic Acid Calcium Phosphorus AST Alkaline Phosphatase NT-Pro-B Natriuret Pep Total Protein Albumin Urine WBC (Auto) Crossmatch 10/22/18 10/22/18 10/22/18 04:39 04:39 04:39 WBC RBC Hgb Hct MCH RDW Plt Count Lymph % (Auto) [place] % (Auto) Lymph # [place] # Eos # Baso # Seg Neutrophils % Seg Neuts % (Manual) Lymphocytes % (Manual) Seg Neutrophils # Seg Neutrophils # Man Lymphocytes # (Manual) PT 20.3 H INR 1.62 H APTT Heparin Anti-Xa Level 0.12 L POC ABG pH POC ABG pCO2 POC ABG pO2 Sodium Potassium Chloride Carbon Dioxide BUN 20 H Creatinine 1.7 H Glucose 255 H POC Glucose Hemoglobin A1c Lactic Acid Calcium 8.1 L Phosphorus AST Alkaline Phosphatase NT-Pro-B Natriuret Pep Total Protein Albumin Urine WBC (Auto) Crossmatch See Detail 10/22/18 10/22/18 10/22/18 05:09 11:20 11:20 WBC RBC Hgb 7.4 L Hct 21.9 L MCH RDW Plt Count 457 H Lymph % (Auto) [place] % (Auto) Lymph # [place] # Eos # Baso # Seg Neutrophils % Seg Neuts % (Manual) Lymphocytes % (Manual) Seg Neutrophils # Seg Neutrophils # Man Lymphocytes # (Manual) PT 20.8 H INR 1.67 H APTT 71.0 H* Heparin Anti-Xa Level 0.20 L POC ABG pH POC ABG pCO2 POC ABG pO2 Sodium Potassium Chloride Carbon Dioxide BUN Creatinine Glucose POC Glucose 297 H Hemoglobin A1c Lactic Acid Calcium Phosphorus AST Alkaline Phosphatase NT-Pro-B Natriuret Pep Total Protein Albumin Urine WBC (Auto) Crossmatch 10/22/18 10/22/18 10/22/18 12:09 16:51 17:11 WBC RBC Hgb Hct MCH RDW Plt Count Lymph % (Auto) [place] % (Auto) Lymph # [place] # Eos # Baso # Seg Neutrophils % Seg Neuts % (Manual) Lymphocytes % (Manual) Seg Neutrophils # Seg Neutrophils # Man Lymphocytes # (Manual) PT INR APTT Heparin Anti-Xa Level POC ABG pH POC ABG pCO2 POC ABG pO2 Sodium Potassium Chloride Carbon Dioxide BUN Creatinine Glucose 115 H POC Glucose 125 H < 40 L Hemoglobin A1c Lactic Acid Calcium Phosphorus AST Alkaline Phosphatase NT-Pro-B Natriuret Pep Total Protein Albumin Urine WBC (Auto) Crossmatch 10/22/18 10/23/18 10/23/18 17:13 00:08 06:19 WBC RBC Hgb Hct MCH RDW Plt Count Lymph % (Auto) [place] % (Auto) Lymph # [place] # Eos # Baso # Seg Neutrophils % Seg Neuts % (Manual) Lymphocytes % (Manual) Seg Neutrophils # Seg Neutrophils # Man Lymphocytes # (Manual) PT INR APTT Heparin Anti-Xa Level POC ABG pH POC ABG pCO2 POC ABG pO2 Sodium Potassium Chloride Carbon Dioxide BUN Creatinine Glucose POC Glucose 126 H 192 H 249 H Hemoglobin A1c Lactic Acid Calcium Phosphorus AST Alkaline Phosphatase NT-Pro-B Natriuret Pep Total Protein Albumin Urine WBC (Auto) Crossmatch 10/23/18 10/23/18 10/23/18 07:21 07:21 07:21 WBC 14.4 H RBC 3.29 L Hgb 9.2 L Hct 27.6 L MCH RDW 20.5 H Plt Count 505 H Lymph % (Auto) 8.1 L [place] % (Auto) Lymph # [place] # 1.0 H Eos # 0.6 H Baso # Seg Neutrophils % 80.0 H Seg Neuts % (Manual) Lymphocytes % (Manual) Seg Neutrophils # 11.5 H Seg Neutrophils # Man Lymphocytes # (Manual) PT 21.6 H INR 1.75 H APTT Heparin Anti-Xa Level POC ABG pH POC ABG pCO2 POC ABG pO2 Sodium Potassium Chloride Carbon Dioxide BUN 18 H Creatinine 1.5 H Glucose 308 H POC Glucose Hemoglobin A1c Lactic Acid Calcium Phosphorus AST Alkaline Phosphatase NT-Pro-B Natriuret Pep Total Protein Albumin Urine WBC (Auto) Crossmatch 10/23/18 10/23/18 10/23/18 10:34 11:56 17:07 WBC RBC Hgb Hct MCH RDW Plt Count Lymph % (Auto) [place] % (Auto) Lymph # [place] # Eos # Baso # Seg Neutrophils % Seg Neuts % (Manual) Lymphocytes % (Manual) Seg Neutrophils # Seg Neutrophils # Man Lymphocytes # (Manual) PT INR APTT Heparin Anti-Xa Level POC ABG pH POC ABG pCO2 POC ABG pO2 Sodium Potassium Chloride Carbon Dioxide BUN Creatinine Glucose POC Glucose > 500 H 440 H 387 H Hemoglobin A1c Lactic Acid Calcium Phosphorus AST Alkaline Phosphatase NT-Pro-B Natriuret Pep Total Protein Albumin Urine WBC (Auto) Crossmatch 10/23/18 10/24/18 10/24/18 23:44 06:18 06:39 WBC RBC Hgb 7.9 L Hct 24.3 L MCH RDW Plt Count 522 H Lymph % (Auto) [place] % (Auto) Lymph # [place] # Eos # Baso # Seg Neutrophils % Seg Neuts % (Manual) Lymphocytes % (Manual) Seg Neutrophils # Seg Neutrophils # Man Lymphocytes # (Manual) PT INR APTT Heparin Anti-Xa Level POC ABG pH POC ABG pCO2 POC ABG pO2 Sodium Potassium Chloride Carbon Dioxide BUN Creatinine Glucose POC Glucose 172 H 154 H Hemoglobin A1c Lactic Acid Calcium Phosphorus AST Alkaline Phosphatase NT-Pro-B Natriuret Pep Total Protein Albumin Urine WBC (Auto) Crossmatch 10/24/18 10/24/18 10/24/18 08:05 11:12 18:50 WBC RBC Hgb Hct MCH RDW Plt Count Lymph % (Auto) [place] % (Auto) Lymph # [place] # Eos # Baso # Seg Neutrophils % Seg Neuts % (Manual) Lymphocytes % (Manual) Seg Neutrophils # Seg Neutrophils # Man Lymphocytes # (Manual) PT 20.5 H INR 1.64 H APTT Heparin Anti-Xa Level < 0.10 L POC ABG pH POC ABG pCO2 POC ABG pO2 Sodium Potassium Chloride Carbon Dioxide BUN Creatinine Glucose POC Glucose 203 H Hemoglobin A1c Lactic Acid Calcium Phosphorus AST Alkaline Phosphatase NT-Pro-B Natriuret Pep Total Protein Albumin Urine WBC (Auto) Crossmatch 10/25/18 10/25/18 10/25/18 01:29 06:00 06:00 WBC RBC Hgb 7.8 L Hct 23.9 L MCH RDW Plt Count 569 H Lymph % (Auto) [place] % (Auto) Lymph # [place] # Eos # Baso # Seg Neutrophils % Seg Neuts % (Manual) Lymphocytes % (Manual) Seg Neutrophils # Seg Neutrophils # Man Lymphocytes # (Manual) PT 15.6 H INR 1.17 H APTT Heparin Anti-Xa Level POC ABG pH POC ABG pCO2 POC ABG pO2 Sodium Potassium Chloride Carbon Dioxide BUN Creatinine Glucose POC Glucose 146 H Hemoglobin A1c Lactic Acid Calcium Phosphorus AST Alkaline Phosphatase NT-Pro-B Natriuret Pep Total Protein Albumin Urine WBC (Auto) Crossmatch 10/25/18 10/25/18 10/25/18 06:00 06:11 12:05 WBC RBC Hgb Hct MCH RDW Plt Count Lymph % (Auto) [place] % (Auto) Lymph # [place] # Eos # Baso # Seg Neutrophils % Seg Neuts % (Manual) Lymphocytes % (Manual) Seg Neutrophils # Seg Neutrophils # Man Lymphocytes # (Manual) PT INR APTT Heparin Anti-Xa Level 0.14 L POC ABG pH POC ABG pCO2 POC ABG pO2 Sodium Potassium Chloride Carbon Dioxide BUN Creatinine Glucose POC Glucose 246 H 283 H Hemoglobin A1c Lactic Acid Calcium Phosphorus AST Alkaline Phosphatase NT-Pro-B Natriuret Pep Total Protein Albumin Urine WBC (Auto) Crossmatch 10/25/18 10/25/18 10/26/18 17:53 21:20 04:59 WBC RBC Hgb 8.0 L Hct 24.4 L MCH RDW Plt Count Lymph % (Auto) [place] % (Auto) Lymph # [place] # Eos # Baso # Seg Neutrophils % Seg Neuts % (Manual) Lymphocytes % (Manual) Seg Neutrophils # Seg Neutrophils # Man Lymphocytes # (Manual) PT INR APTT Heparin Anti-Xa Level POC ABG pH POC ABG pCO2 POC ABG pO2 Sodium Potassium Chloride Carbon Dioxide BUN Creatinine Glucose POC Glucose 298 H 336 H Hemoglobin A1c Lactic Acid Calcium Phosphorus AST Alkaline Phosphatase NT-Pro-B Natriuret Pep Total Protein Albumin Urine WBC (Auto) Crossmatch 10/26/18 10/26/18 10/26/18 04:59 07:48 12:33 WBC RBC Hgb Hct MCH RDW Plt Count Lymph % (Auto) [place] % (Auto) Lymph # [place] # Eos # Baso # Seg Neutrophils % Seg Neuts % (Manual) Lymphocytes % (Manual) Seg Neutrophils # Seg Neutrophils # Man Lymphocytes # (Manual) PT INR APTT Heparin Anti-Xa Level 0.21 L 0.19 L POC ABG pH POC ABG pCO2 POC ABG pO2 Sodium Potassium Chloride Carbon Dioxide BUN Creatinine Glucose POC Glucose 339 H Hemoglobin A1c Lactic Acid Calcium Phosphorus AST Alkaline Phosphatase NT-Pro-B Natriuret Pep Total Protein Albumin Urine WBC (Auto) Crossmatch 10/26/18 10/26/18 10/26/18 15:49 15:54 17:36 WBC RBC Hgb Hct MCH RDW Plt Count Lymph % (Auto) [place] % (Auto) Lymph # [place] # Eos # Baso # Seg Neutrophils % Seg Neuts % (Manual) Lymphocytes % (Manual) Seg Neutrophils # Seg Neutrophils # Man Lymphocytes # (Manual) PT INR APTT Heparin Anti-Xa Level POC ABG pH POC ABG pCO2 POC ABG pO2 Sodium Potassium Chloride Carbon Dioxide BUN Creatinine Glucose 49 L POC Glucose < 40 L 226 H Hemoglobin A1c Lactic Acid Calcium Phosphorus AST Alkaline Phosphatase NT-Pro-B Natriuret Pep Total Protein Albumin Urine WBC (Auto) Crossmatch 10/26/18 10/26/18 10/27/18 19:42 21:08 03:00 WBC RBC Hgb 7.9 L Hct 23.8 L MCH RDW Plt Count 629 H Lymph % (Auto) [place] % (Auto) Lymph # [place] # Eos # Baso # Seg Neutrophils % Seg Neuts % (Manual) Lymphocytes % (Manual) Seg Neutrophils # Seg Neutrophils # Man Lymphocytes # (Manual) PT INR APTT Heparin Anti-Xa Level 0.19 L POC ABG pH POC ABG pCO2 POC ABG pO2 Sodium Potassium Chloride Carbon Dioxide BUN Creatinine Glucose POC Glucose 234 H Hemoglobin A1c Lactic Acid Calcium Phosphorus AST Alkaline Phosphatase NT-Pro-B Natriuret Pep Total Protein Albumin Urine WBC (Auto) Crossmatch 10/27/18 10/27/18 10/27/18 08:16 12:30 16:44 WBC RBC Hgb Hct MCH RDW Plt Count Lymph % (Auto) [place] % (Auto) Lymph # [place] # Eos # Baso # Seg Neutrophils % Seg Neuts % (Manual) Lymphocytes % (Manual) Seg Neutrophils # Seg Neutrophils # Man Lymphocytes # (Manual) PT INR APTT Heparin Anti-Xa Level POC ABG pH POC ABG pCO2 POC ABG pO2 Sodium Potassium Chloride Carbon Dioxide BUN Creatinine Glucose POC Glucose 181 H 287 H 339 H Hemoglobin A1c Lactic Acid Calcium Phosphorus AST Alkaline Phosphatase NT-Pro-B Natriuret Pep Total Protein Albumin Urine WBC (Auto) Crossmatch 10/27/18 10/28/18 10/28/18 21:09 03:57 03:57 WBC RBC Hgb 7.7 L Hct 23.5 L MCH RDW Plt Count Lymph % (Auto) [place] % (Auto) Lymph # [place] # Eos # Baso # Seg Neutrophils % Seg Neuts % (Manual) Lymphocytes % (Manual) Seg Neutrophils # Seg Neutrophils # Man Lymphocytes # (Manual) PT 15.1 H INR APTT Heparin Anti-Xa Level 0.29 L POC ABG pH POC ABG pCO2 POC ABG pO2 Sodium Potassium Chloride Carbon Dioxide BUN Creatinine Glucose POC Glucose 120 H Hemoglobin A1c Lactic Acid Calcium Phosphorus AST Alkaline Phosphatase NT-Pro-B Natriuret Pep Total Protein Albumin Urine WBC (Auto) Crossmatch 10/28/18 10/28/18 10/28/18 08:20 11:08 16:32 WBC RBC Hgb Hct MCH RDW Plt Count Lymph % (Auto) [place] % (Auto) Lymph # [place] # Eos # Baso # Seg Neutrophils % Seg Neuts % (Manual) Lymphocytes % (Manual) Seg Neutrophils # Seg Neutrophils # Man Lymphocytes # (Manual) PT INR APTT Heparin Anti-Xa Level POC ABG pH POC ABG pCO2 POC ABG pO2 Sodium Potassium Chloride Carbon Dioxide BUN Creatinine Glucose POC Glucose 308 H 371 H 115 H Hemoglobin A1c Lactic Acid Calcium Phosphorus AST Alkaline Phosphatase NT-Pro-B Natriuret Pep Total Protein Albumin Urine WBC (Auto) Crossmatch 10/28/18 10/29/18 10/29/18 22:01 07:06 07:06 WBC RBC Hgb 7.8 L Hct 23.8 L MCH RDW Plt Count 625 H Lymph % (Auto) [place] % (Auto) Lymph # [place] # Eos # Baso # Seg Neutrophils % Seg Neuts % (Manual) Lymphocytes % (Manual) Seg Neutrophils # Seg Neutrophils # Man Lymphocytes # (Manual) PT 15.4 H INR 1.15 H APTT Heparin Anti-Xa Level POC ABG pH POC ABG pCO2 POC ABG pO2 Sodium Potassium Chloride Carbon Dioxide BUN Creatinine Glucose POC Glucose 287 H Hemoglobin A1c Lactic Acid Calcium Phosphorus AST Alkaline Phosphatase NT-Pro-B Natriuret Pep Total Protein Albumin Urine WBC (Auto) Crossmatch 10/29/18 10/29/18 10/29/18 07:56 11:22 15:19 WBC RBC Hgb Hct MCH RDW Plt Count Lymph % (Auto) [place] % (Auto) Lymph # [place] # Eos # Baso # Seg Neutrophils % Seg Neuts % (Manual) Lymphocytes % (Manual) Seg Neutrophils # Seg Neutrophils # Man Lymphocytes # (Manual) PT INR APTT Heparin Anti-Xa Level 0.16 L POC ABG pH POC ABG pCO2 POC ABG pO2 Sodium Potassium Chloride Carbon Dioxide BUN Creatinine Glucose POC Glucose 199 H 328 H Hemoglobin A1c Lactic Acid Calcium Phosphorus AST Alkaline Phosphatase NT-Pro-B Natriuret Pep Total Protein Albumin Urine WBC (Auto) Crossmatch 10/29/18 10/29/18 10/30/18 15:19 16:26 04:59 WBC RBC Hgb Hct MCH RDW Plt Count Lymph % (Auto) [place] % (Auto) Lymph # [place] # Eos # Baso # Seg Neutrophils % Seg Neuts % (Manual) Lymphocytes % (Manual) Seg Neutrophils # Seg Neutrophils # Man Lymphocytes # (Manual) PT 17.7 H INR 1.36 H APTT Heparin Anti-Xa Level POC ABG pH POC ABG pCO2 POC ABG pO2 Sodium 135 L Potassium Chloride Carbon Dioxide 20 L BUN 33 H Creatinine 1.5 H Glucose 161 H POC Glucose 155 H Hemoglobin A1c Lactic Acid Calcium 8.3 L Phosphorus AST Alkaline Phosphatase NT-Pro-B Natriuret Pep Total Protein Albumin Urine WBC (Auto) Crossmatch 10/30/18 10/30/18 05:04 07:53 WBC RBC Hgb 7.9 L Hct 23.8 L MCH RDW Plt Count Lymph % (Auto) [place] % (Auto) Lymph # [place] # Eos # Baso # Seg Neutrophils % Seg Neuts % (Manual) Lymphocytes % (Manual) Seg Neutrophils # Seg Neutrophils # Man Lymphocytes # (Manual) PT INR APTT Heparin Anti-Xa Level POC ABG pH POC ABG pCO2 POC ABG pO2 Sodium Potassium Chloride Carbon Dioxide BUN Creatinine Glucose POC Glucose 291 H Hemoglobin A1c Lactic Acid Calcium Phosphorus AST Alkaline Phosphatase NT-Pro-B Natriuret Pep Total Protein Albumin Urine WBC (Auto) Crossmatch
--- NOTE | 2018-10-30 11:44 | Progress Note ---
Assessment and Plan Patient's blood pressure has improved we'll start low-dose carvedilol no Sergio or ARB in view of history of renal insufficiency and blood pressure medications were on hold because a lower BP patient may be on Lovenox as a bridge to coumadinization with goal INR 2.5-3.5 discussed with the hospitalist service, spoke with pt and pt agreed to go to snf - Patient Problems (1) Acute on chronic renal failure Current Visit: Yes Status: Acute Qualifiers: Acute renal failure type: with acute tubular necrosis Chronic kidney disease stage: stage 2 (mild) Qualified Code(s): N17.0 - Acute kidney failure with tubular necrosis; N18.2 - Chronic kidney disease, stage 2 (mild) (2) Acute respiratory failure with hypoxia Current Visit: Yes Status: Acute (3) Heart failure with reduced ejection fraction Current Visit: Yes Status: Acute Qualifiers: Heart failure chronicity: acute on chronic Qualified Code(s): I50.23 - Acute on chronic systolic (congestive) heart failure (4) CAD (coronary artery disease) Current Visit: Yes Status: Chronic Qualifiers: Coronary Disease-Associated Artery/Lesion type: bypass graft Associated angina: without angina (5) H/O mitral valve replacement with mechanical valve Current Visit: Yes Status: Chronic (6) Seizures Current Visit: Yes Status: Suspected (7) Sepsis Current Visit: Yes Status: Suspected Qualifiers: Sepsis type: sepsis due to unspecified organism Qualified Code(s): A41.9 - Sepsis, unspecified organism (8) Acute respiratory failure Current Visit: Yes Status: Resolved (9) Altered mental status Current Visit: Yes Status: Resolved Subjective Date of service: 10/30/18 Principal diagnosis: Ac hypoxemic resp failure; Seizures (?hypoglycemic); Ac encephalopathy(T/M) Interval history: lying in bed no issues Objective Vital Signs Temp Pulse Pulse Resp Resp BP Pulse Ox 10/30/18 11:24 98.2 F 89 12 155/100 96 10/30/18 08:36 92 H 153/101 10/30/18 08:33 153/101 10/30/18 05:30 97.6 F 81 16 146/87 97 10/29/18 21:23 18 10/29/18 20:23 18 10/29/18 20:00 92 H 18 18 10/29/18 19:08 98.7 F 89 20 159/94 98 10/29/18 15:59 98.3 F 93 H 12 147/93 95 10/29/18 14:58 148/94 10/29/18 14:53 148/94 - Physical Examination General: No Apparent Distress HEENT: Positive: PERRL Neck: Positive: neck supple (valve clicks intact.) Cardiac: Positive: Reg Rate and Rhythm, Audible Murmur (click) Lungs: Positive: clear to auscultation Neuro: Positive: Grossly Intact Abdomen: Negative: Tender Skin: Negative: Rash Extremities: Absent: edema - Labs and Meds Coagulation 10/30/18 Range/Units 04:59 PT 17.7 H (12.2-14.9) Sec. INR 1.36 H (0.87-1.13) CBC 10/30/18 Range/Units 05:04 Hgb 7.9 L (10.1-14.3) gm/dl Hct 23.8 L (30.3-42.9) % Comprehensive Metabolic Panel 10/29/18 Range/Units 15:19 Sodium 135 L (137-145) mmol/L Potassium 4.5 (3.6-5.0) mmol/L Chloride 103.0 (98-107) mmol/L Carbon Dioxide 20 L (22-30) mmol/L BUN 33 H (7-17) mg/dL Creatinine 1.5 H (0.7-1.2) mg/dL Glucose 161 H (65-100) mg/dL Calcium 8.3 L (8.4-10.2) mg/dL - Imaging and Cardiology EKG: report reviewed, image reviewed Echo: report reviewed (07/2018: EF 40%, mild to mod LVH, LA and RA dilated, mod TR and PA, mechanical valve in mitral position that appears to be functioning properly. 10/2018: EF 35-40%, mod LVH, abnormal diastolic function, LA severely dilated, mechanical MV appears well seated with normal function, mod pulm HTN. 11/2016 showed EF 40-45%, abnormal diastolic function, trace MR, mild TR, RVSP 36mmHg. ) - EKG Sinus rhythms and dysrhythmias: sinus rhythm Chamber hypertrophy or enlargement: left ventricular hypertro - Allied health notes Allied health notes reviewed: nursing
[2018-10-30] MEDS ORDERED: COUMADIN PO SCH (12:12)
[2018-10-30] MEDS ORDERED: HEPARIN/ 0.45% NACL-25,000 UNIT/500 ML 25,000 UNIT/500 ML BAG IV SCH (12:13)
--- NOTE | 2018-10-30 12:14 | Progress Note ---
Assessment and Plan Assessment and plan: 48 year old woman with history of coronary artery disease, status post cabbage, diabetes, hypertension who was brought to the emergency room for altered mental status. She was found to have hypoglycemia, she was also having convulsions at the time of admission. The patient was intubated, sp dextrose she was put on the ventilator she was found to have pneumonia and CHF flare and started on antibiotics. patient has history of MV replacement and was on anticoagulation. Pneumonia, severe sepsis - Patient was on IV antibiotics and completed on 10/13 per ID Acute hypoxic respiratory failure on MV >96 hrs Was intubated and on mechanical ventilation - patient was extubated on 10/13 -Weaned to room air on 10/19, status epilepticus; Seizures when most likely due to hypoglycemia -Treated with dextrose - neurology consult appreciated Acute on chronic systolic CHF EF 40%, dilated ventricles -cardiology consult appreciated - on PO lasix [facility]/hypercoaguable state/coagulopathy due to warfarin INR subtherapeutic, on heparin ggt INR is 1.15 and pharmacy is adjusting the dose of Coumadin I have discussed with Dr. 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, treated as type 1, uncontrolled, a1c 10.2 Continue insulins judiciously, brittle DM with episodes of hypoglycemia and hyperglycemia, labile glc Mazin upon ckd stage 3, vasomotor nephropathy and likely ATN from sepsis Nephrology input appreciated, avoid nephrotoxins, neph signed off on 10/15 acute metabolic encephalopathy - Resolved hypernatremia - Resolved Hyperkalemia - resolved with insulin and diuretics htn urgency; - Controlled - optimized bp meds Marijuana abuse; was counseled, preventive health counseling dvt ppx- chemical, dispo; to [facility] with Lovenox bridge History Interval history: Review of systems Constitutional: No fevers, no malaise, no joint pains CVS: No chest pain, no pedal edema, sob is resolved GI:no hematemesis, blood in stool or melena, No abdominal pain, no diarrhea, no vomiting, no constipation Respiratory: No cough or wheezing Hospitalist Physical - Physical exam Narrative exam: General.: appears well HEENT: Moist mucous membranes, extraocular muscles intact, no lymphadenopathy Neck: supple Cardiac: S1-S2 heard Lungs: Clear to auscultation Abdomen: soft , nontender, nondistended, bowel sounds positive Extremities: no edema clubbing or cyanosis Skin: no rash or lesions Neurologic: no focal deficit Psych: calm and cooperative - Constitutional Vitals: Temp Pulse Resp BP Pulse Ox 98.2 F 89 12 155/100 96 10/30/18 11:24 10/30/18 11:24 10/30/18 11:24 10/30/18 11:24 10/30/18 11:24 General appearance: Present: other (intubated, eyes open, no purposeful response to commands) Results - Labs CBC & Chem 7: 10/30/18 05:04 10/29/18 15:19 Labs: Laboratory Last Values WBC 14.4 K/mm3 (4.5-11.0) H 10/23/18 07:21 RBC 3.29 M/mm3 (3.65-5.03) L 10/23/18 07:21 Hgb 7.9 gm/dl (10.1-14.3) L 10/30/18 05:04 Hct 23.8 % (30.3-42.9) L 10/30/18 05:04 MCV 84 fl (79-97) 10/23/18 07:21 MCH 28 pg (28-32) 10/23/18 07:21 MCHC 33 % (30-34) 10/23/18 07:21 RDW 20.5 % (13.2-15.2) H 10/23/18 07:21 Plt Count 625 K/mm3 (140-440) H 10/29/18 07:06 Lymph % (Auto) 8.1 % (13.4-35.0) L 10/23/18 07:21 [place] % (Auto) 7.3 % (0.0-7.3) 10/23/18 07:21 Eos % (Auto) 3.8 % (0.0-4.3) 10/23/18 07:21 Baso % (Auto) 0.8 % (0.0-1.8) 10/23/18 07:21 Lymph # 1.2 K/mm3 (1.2-5.4) 10/23/18 07:21 [place] # 1.0 K/mm3 (0.0-0.8) H 10/23/18 07:21 Eos # 0.6 K/mm3 (0.0-0.4) H 10/23/18 07:21 Baso # 0.1 K/mm3 (0.0-0.1) 10/23/18 07:21 Add Manual Diff Complete 10/17/18 05:00 Total Counted 100 10/17/18 05:00 Seg Neutrophils % 80.0 % (40.0-70.0) H 10/23/18 07:21 Seg Neuts % (Manual) 87.0 % (40.0-70.0) H 10/17/18 05:00 0 % 10/17/18 05:00 9.0 % (13.4-35.0) L 10/17/18 05:00 Reactive Lymphs % (Man) 0 % 10/17/18 05:00 2.0 % (0.0-7.3) 10/17/18 05:00 2.0 % (0.0-4.3) 10/17/18 05:00 0 % (0.0-1.8) 10/17/18 05:00 0 % 10/17/18 05:00 0 % 10/17/18 05:00 0 % 10/17/18 05:00 0 % 10/17/18 05:00 Nucleated RBC % Not Reportable 10/17/18 05:00 Seg Neutrophils # 11.5 K/mm3 (1.8-7.7) H 10/23/18 07:21 Seg Neutrophils # Man 10.1 K/mm3 (1.8-7.7) H 10/17/18 05:00 Band Neutrophils # 0.0 K/mm3 10/17/18 05:00 1.0 K/mm3 (1.2-5.4) L 10/17/18 05:00 Abs React Lymphs (Man) 0.0 K/mm3 10/17/18 05:00 0.2 K/mm3 (0.0-0.8) 10/17/18 05:00 0.2 K/mm3 (0.0-0.4) 10/17/18 05:00 0.0 K/mm3 (0.0-0.1) 10/17/18 05:00 0.0 K/mm3 05/13/19 05:00 0.0 K/mm3 10/17/18 05:00 0.0 K/mm3 10/17/18 05:00 Blast Cells # 0.0 K/mm3 10/17/18 05:00 WBC Morphology Not Reportable 10/17/18 05:00 Hypersegmented Neuts Not Reportable 10/17/18 05:00 Hyposegmented Neuts Not Reportable 10/17/18 05:00 Hypogranular Neuts Not Reportable 10/17/18 05:00 Not Reportable 10/17/18 05:00 Not Reportable 10/17/18 05:00 Not Reportable 10/17/18 05:00 Not Reportable 10/17/18 05:00 Not Reportable 10/17/18 05:00 Not Reportable 10/17/18 05:00 Consistent w auto 10/17/18 05:00 Not Reportable 10/17/18 05:00 Plt Clumps, EDTA Not Reportable 10/17/18 05:00 Not Reportable 10/17/18 05:00 Not Reportable 10/17/18 05:00 Not Reportable 10/17/18 05:00 Plt Morphology Comment Not Reportable 10/17/18 05:00 RBC Morphology Not Reportable 10/17/18 05:00 Dimorphic RBCs Not Reportable 10/17/18 05:00 Not Reportable 10/17/18 05:00 1+ 10/17/18 05:00 Few 10/17/18 05:00 1+ 10/17/18 05:00 Not Reportable 10/17/18 05:00 Rare 10/17/18 05:00 Not Reportable 10/17/18 05:00 Not Reportable 10/17/18 05:00 Not Reportable 10/17/18 05:00 Not Reportable 10/17/18 05:00 Not Reportable 10/17/18 05:00 Not Reportable 10/17/18 05:00 Not Reportable 10/17/18 05:00 Not Reportable 10/17/18 05:00 Not Reportable 10/17/18 05:00 Not Reportable 10/17/18 05:00 Not Reportable 10/17/18 05:00 Not Reportable 10/17/18 05:00 Not Reportable 10/17/18 05:00 Acanthocytes (Spur) Not Reportable 10/17/18 05:00 Rouleaux Not Reportable 10/17/18 05:00 Not Reportable 10/17/18 05:00 Not Reportable 10/17/18 05:00 Not Reportable 10/17/18 05:00 Not Reportable 10/17/18 05:00 Hem Pathologist Commnt No 10/17/18 05:00 PT 17.7 Sec. (12.2-14.9) H 10/30/18 04:59 INR 1.36 (0.87-1.13) H 10/30/18 04:59 APTT 71.0 Sec. (24.2-36.6) H* 10/22/18 11:20 Heparin Anti-Xa Level 0.36 U.I./ml (0.3-0.7) 10/29/18 23:59 POC ABG pH 7.458 (7.35-7.45) H 10/19/18 19:56 POC ABG pCO2 37.9 (35-45) 10/19/18 19:56 POC ABG pO2 63 (80-105) L 10/19/18 19:56 POC ABG HCO3 26.8 (22-26 mml/L) 10/19/18 19:56 POC ABG Total CO2 28 (23-27mmol/L) 10/19/18 19:56 POC ABG O2 Sat 93 10/19/18 19:56 POC ABG Base Excess 3 ((-2) - (+3)mmol/L) 10/19/18 19:56 2 % 10/19/18 19:56 Sodium 135 mmol/L (137-145) L 10/29/18 15:19 Potassium 4.5 mmol/L (3.6-5.0) 10/29/18 15:19 Chloride 103.0 mmol/L (98-107) 10/29/18 15:19 Carbon Dioxide 20 mmol/L (22-30) L 10/29/18 15:19 17 mmol/L 10/29/18 15:19 BUN 33 mg/dL (7-17) H 10/29/18 15:19 1.5 mg/dL (0.7-1.2) H 10/29/18 15:19 Estimated GFR 45 ml/min 10/29/18 15:19 22 % 10/29/18 15:19 Glucose 161 mg/dL (65-100) H 10/29/18 15:19 POC Glucose 313 (70-105) H 10/30/18 10:54 10.2 % (4-6) H 10/07/18 22:08 Lactic Acid 1.50 mmol/L (0.7-2.0) 10/08/18 17:09 Calcium 8.3 mg/dL (8.4-10.2) L 10/29/18 15:19 Phosphorus 7.40 mg/dL (2.5-4.5) H 10/07/18 22:08 Magnesium 1.70 mg/dL (1.7-2.3) 10/18/18 20:20 0.60 mg/dL (0.1-1.2) 10/17/18 05:00 < 0.2 mg/dL (0-0.2) 10/17/18 05:00 0.4 mg/dL 10/17/18 05:00 AST 14 units/L (5-40) 10/17/18 05:00 ALT 8 units/L (7-56) 10/17/18 05:00 104 units/L (35-129) 10/17/18 05:00 40.0 umol/L (25-60) 10/07/18 02:43 < 0.010 ng/mL (0.00-0.029) 10/07/18 08:59 0.20 mg/dL (0.00-1.30) 10/07/18 14:55 NT-Pro-B Natriuret Pep 2865 pg/mL (0-450) H 10/09/18 03:20 5.4 g/dL (6.3-8.2) L 10/17/18 05:00 2.2 g/dL (3.9-5) L 10/17/18 05:00 0.7 % 10/17/18 05:00 Fay (Yellow) 10/21/18 11:00 Cloudy (Clear) 10/21/18 11:00 5.0 (5.0-7.0) 10/21/18 11:00 Ur Specific [place] 1.022 (1.003-1.030) 10/21/18 11:00 >500 mg/dL (Negative) 10/21/18 11:00 50 mg/dL (Negative) 10/21/18 11:00 Neg mg/dL (Negative) 10/21/18 11:00 Lg (Negative) 10/21/18 11:00 Neg (Negative) 10/21/18 11:00 Neg (Negative) 10/21/18 11:00 < 2.0 mg/dL (<2.0) 10/21/18 11:00 Ur Leukocyte Esterase Mod (Negative) 10/21/18 11:00 125.0 /HPF (0.0-6.0) H 10/21/18 11:00 131.0 /HPF (0.0-6.0) 10/21/18 11:00 U Epithel Cells (Auto) 2.0 /HPF (0-13.0) 10/21/18 11:00 2+ /HPF 10/21/18 11:00 Hyaline Casts 3 /LPF 10/07/18 02:34 Few /HPF 10/07/18 02:34 3+ /HPF 10/21/18 11:00 Presumptive negative 10/07/18 02:34 Presumptive negative 10/07/18 02:34 Ur Barbiturates Screen Presumptive negative 10/07/18 02:34 Ur Phencyclidine Scrn Presumptive negative 10/07/18 02:34 Ur Amphetamines Screen Presumptive negative 10/07/18 02:34 U Benzodiazepines Scrn Presumptive negative 10/07/18 02:34 Presumptive negative 10/07/18 02:34 U Marijuana (THC) Screen Presumptive positive 10/07/18 02:34 Disclamer 10/07/18 02:34 Blood Type O POSITIVE 10/22/18 04:39 Antibody Screen Negative 10/22/18 04:39 Crossmatch See Detail 10/22/18 04:39 Active Medications - Current Medications Current Medications: Generic Name Dose Route Start Last Admin Trade Name Freq PRN Reason Stop Dose Admin Acetaminophen 650 mg 10/07/18 04:59 10/29/18 20:23 Tylenol PO 650 mg Q4H PRN Administration Pain MILD(1-3)/Fever >100.5/RODRIGUEZ Lipase/Protease/Amylase 1 each 10/08/18 10:[address] 10,500 Unit FEEDTUBE PRN PRN For Clogged Feeding Tube Dextrose 50 ml 10/07/18 20:42 10/26/18 16:06 D50w (25gm) Syringe IV 50 ml PRN PRN Administration Hypoglycemia Furosemide 40 mg 10/19/18 11:00 10/30/18 09:38 Lasix PO 40 mg QDAY ULI Administration Hydralazine HCl 10 mg 10/07/18 05:07 10/14/18 08:35 Apresoline IV 10 mg Q4H PRN Administration Blood Pressure Hydrophilic Ointment 1 applic 10/07/18 02:40 Vaseline Lip Therapy TP Q2HR PRN Dry Lips Insulin Glargine 8 units 10/24/18 10:00 10/30/18 09:40 Lantus SUB-Q 8 units DAILY ULI Administration Insulin Human Lispro 0 unit 10/25/18 11:30 10/30/18 08:35 Humalog SUB-Q 3 unit ACHS ULI Administration Protocol Lansoprazole 30 mg 10/16/18 22:00 10/30/18 09:39 Prevacid Solutab FEEDTUBE 30 mg BID ULI Administration Metoclopramide HCl 10 mg 10/11/18 13:00 10/12/18 19:32 Reglan IV 10 mg Q6HR PRN Administration Nausea And Vomiting Metoprolol Tartrate 25 mg 10/30/18 14:00 Lopressor PO TID ULI Multi-Ingred Cream/Lotion/Oil/Oint 1 applic 10/07/18 02:40 Artificial Tears Ophth Oint OU Q4HR PRN Dry Eye(s) Ondansetron HCl 4 mg 10/07/18 04:59 Zofran IV Q8H PRN N/V unrelieved by Kojo Quetiapine Fumarate 100 mg 10/09/18 22:00 10/29/18 21:19 Seroquel PO 100 mg QHS ULI Administration Simple Syrup 15 ml 10/08/18 10:00 Simple Syrup FEEDTUBE PRN PRN Hypoglycemia Simple Syrup 30 ml 10/08/18 10:00 10/09/18 01:09 Simple Syrup FEEDTUBE 30 ml PRN PRN Administration Hypoglycemia Sodium Bicarbonate 325 mg 10/08/18 10:00 Sodium Bicarbonate FEEDTUBE PRN PRN For Clogged Feeding Tube Sodium Chloride 10 ml 10/07/18 10:00 10/30/18 09:44 Sodium Chloride Flush Syringe 10 Ml IV 10 ml BID ULI Administration Sodium Chloride 10 ml 10/07/18 04:59 10/18/18 07:15 Sodium Chloride Flush Syringe 10 Ml IV 10 ml PRN PRN Administration LINE FLUSH Warfarin Sodium 15 mg 10/30/18 12:12 Coumadin PO DAILY@1700 [facility] Nutrition/Malnutrition Assess - Dietary Evaluation Nutrition/Malnutrition Findings: Nutrition Notes Start: 10/07/18 12:17 Freq: Status: Active Protocol: Document 10/25/18 17:02 RM (Rec: 10/25/18 17:05 RM [id number]) Nutrition Notes Initial or Follow up Reassessment Current Diagnosis CKD (stage V CKD),Diabetes, Hypertension,Heart Failure Other Pertinent Diagnosis DKA, AMS Current Diet Consistent CHO Labs/Tests Reviewed Pertinent Medications Lasix Height 5 ft 2 in Weight 53 kg [place] Body Weight (kg) 50.00 BMI 21.3 Subjective/Other Information Pt stated that her appetite is good and that she eats all of her meals. Noted lunch at bedside w/100% eaten. Percent of energy/protein needs met: 100%/100% Burn Absent Trauma Absent #1 Nutrition Diagnosis Inadequate oral intake As Evidenced by Signs and Symptoms pt meeting 100% of calorie and protein needs Diagnosis Progress(for reassessment Resolved documentation) Is patient on ventilator? No Is Patient Ambulatory and/or Out of Bed No REE-([place]-St. Jeor-confined to bed) [phone] Calculation Used for Recommendations [place]-St Jeor Additional Notes Pro needs 0.8-1g/k-55g/ day Fluid needs 1ml/kcal Nutrition Intervention Change Diet Order: Continue current Goal #1 Continue to meet at least 75% of calorie and protein needs via PO intakes Anticipated Discharge Needs: Consistent CHO diet Revisit per MD consult or patient Sign Off request:
[2018-10-30] MEDS: COUMADIN PO SCH (17:21)
[2018-10-30] MEDS: TYLENOL PO PRN (19:54)
[2018-10-30] MEDS ORDERED: LOVENOX SUB-Q SCH (22:00)
[2018-10-30] MEDS: LOVENOX SUB-Q SCH (22:41)
[2018-10-31 06:33] LABS: INR 1.58 (0.87-1.13)
[2018-10-31] MEDS: HumaLOG SUB-Q SCH ×4 (08:30→17:21)
[2018-10-31] MEDS: LOPRESSOR PO SCH ×2 (08:57→21:27)
[2018-10-31] MEDS: LASIX PO SCH (10:54)
[2018-10-31] MEDS: PREVACID SOLUTAB FEEDTUBE SCH ×2 (10:54→21:24)
[2018-10-31] MEDS: SODIUM CHLORIDE FLUSH SYRINGE 10 ML IV SCH ×2 (10:55→21:28)
[2018-10-31] MEDS: LANTUS SUB-Q SCH ×2 (10:55→15:37)
[2018-10-31] MEDS: LOVENOX SUB-Q SCH ×5 (10:55→21:32)
--- NOTE | 2018-10-31 11:19 | Progress Note ---
Assessment and Plan pt on lovenox as bridge pt has agreed to take it and coumadin, added hydralzine and imdur and cont lopressor for lv dsyfunction no marta or arb secondary to renal insufficency history and maybe discharged home from [facility] point of view, spoke with case management. - Patient Problems (1) Acute on chronic renal failure Current Visit: Yes Status: Acute Qualifiers: Acute renal failure type: with acute tubular necrosis Chronic kidney disease stage: stage 2 (mild) Qualified Code(s): N17.0 - Acute kidney failure with tubular necrosis; N18.2 - Chronic kidney disease, stage 2 (mild) (2) Acute respiratory failure with hypoxia Current Visit: Yes Status: Acute (3) Heart failure with reduced ejection fraction Current Visit: Yes Status: Acute Qualifiers: Heart failure chronicity: acute on chronic Qualified Code(s): I50.23 - Acute on chronic systolic (congestive) heart failure (4) CAD (coronary artery disease) Current Visit: Yes Status: Chronic Qualifiers: Coronary Disease-Associated Artery/Lesion type: bypass graft Associated angina: without angina (5) H/O mitral valve replacement with mechanical valve Current Visit: Yes Status: Chronic (6) Seizures Current Visit: Yes Status: Suspected (7) Sepsis Current Visit: Yes Status: Suspected Qualifiers: Sepsis type: sepsis due to unspecified organism Qualified Code(s): A41.9 - Sepsis, unspecified organism (8) Acute respiratory failure Current Visit: Yes Status: Resolved (9) Altered mental status Current Visit: Yes Status: Resolved Subjective Date of service: 10/31/18 Principal diagnosis: Ac hypoxemic resp failure; Seizures (?hypoglycemic); Ac encephalopathy(T/M) Interval history: sitting in chair and no sob Objective Vital Signs Temp Pulse Pulse Resp Resp BP Pulse Ox 10/31/18 08:57 85 159/103 10/31/18 04:58 97.5 F L 83 20 160/99 98 10/30/18 22:33 97.9 F 90 20 139/92 99 10/30/18 20:54 18 10/30/18 19:59 93 H 10/30/18 19:58 18 10/30/18 19:54 18 10/30/18 16:57 97.8 F 84 12 152/98 98 10/30/18 15:13 155/100 10/30/18 11:24 98.2 F 89 12 155/100 96 - Physical Examination General: No Apparent Distress HEENT: Positive: PERRL Neck: Positive: neck supple (valve clicks intact.) Cardiac: Positive: Reg Rate and Rhythm, Audible Murmur (click ) Lungs: Positive: clear to auscultation Neuro: Positive: Grossly Intact Abdomen: Negative: Tender Skin: Negative: Rash Extremities: Absent: edema - Labs and Meds Coagulation 10/31/18 Range/Units 06:00 PT 19.9 H (12.2-14.9) Sec. INR 1.58 H (0.87-1.13) - Imaging and Cardiology EKG: report reviewed, image reviewed Echo: report reviewed (07/2018: EF 40%, mild to mod LVH, LA and RA dilated, mod TR and CA, mechanical valve in mitral position that appears to be functioning properly. 10/2018: EF 35-40%, mod LVH, abnormal diastolic function, LA severely dilated, mechanical MV appears well seated with normal function, mod pulm HTN. 11/2016 showed EF 40-45%, abnormal diastolic function, trace MR, mild TR, RVSP 36mmHg. ) - EKG Sinus rhythms and dysrhythmias: sinus rhythm Chamber hypertrophy or enlargement: left ventricular hypertro - Allied health notes Allied health notes reviewed: nursing
[2018-10-31] MEDS: IMDUR PO SCH (13:14)
[2018-10-31] MEDS ORDERED: D50W (25GM) Syringe IV PRN (13:47)
--- NOTE | 2018-10-31 13:48 | Progress Note ---
Assessment and Plan Assessment and plan: 48 year old woman with history of coronary artery disease, status post cabbage, diabetes, hypertension who was brought to the emergency room for altered mental status. She was found to have hypoglycemia, she was also having convulsions at the time of admission. The patient was intubated, sp dextrose she was put on the ventilator she was found to have pneumonia and CHF flare and started on antibiotics. patient has history of MV replacement and was on anticoagulation. Pneumonia, severe sepsis - Patient was on IV antibiotics and completed on 10/13 per ID Acute hypoxic respiratory failure on MV >96 hrs Was intubated and on mechanical ventilation - patient was extubated on 10/13 -Weaned to room air on 10/19, status epilepticus; Seizures when most likely due to hypoglycemia -Treated with dextrose - neurology consult appreciated Acute on chronic systolic CHF EF 40%, dilated ventricles -cardiology consult appreciated - on PO lasix History of [facility] mitral valve replacement/hypercoaguable state/coagulopathy due to warfarin INR subtherapeutic, cont warfarin with lovenox bridge to be dc after confident with lovenox teaching, she is still unable to self inject, her room-mate has not shown up for teaching Severe anemia sp-transfusion, Gi workup showed neg egd and c scope, outpatient pill camera recommended Currently stable 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, treated as type 1, uncontrolled, a1c 10.2 Continue insulins judiciously, brittle DM with episodes of hypoglycemia and hyperglycemia, labile glc Mazin upon ckd stage 3, vasomotor nephropathy and likely ATN from sepsis Nephrology input appreciated, avoid nephrotoxins, neph signed off on 10/15 acute metabolic encephalopathy - Resolved hypernatremia - Resolved Hyperkalemia - resolved with insulin and diuretics htn urgency; - Controlled - optimized bp meds Marijuana abuse; was counseled, preventive health counseling dvt ppx- chemical, dispo; to [facility] with Lovenox bridge History Interval history: Review of systems Constitutional: No fevers, no malaise, no joint pains CVS: No chest pain, no pedal edema, sob is resolved GI:no hematemesis, blood in stool or melena, No abdominal pain, no diarrhea, no vomiting, no constipation Respiratory: No cough or wheezing Hospitalist Physical - Physical exam Narrative exam: General.: appears well HEENT: Moist mucous membranes, extraocular muscles intact, no lymphadenopathy Neck: supple Cardiac: S1-S2 heard Lungs: Clear to auscultation Abdomen: soft , nontender, nondistended, bowel sounds positive Extremities: no edema clubbing or cyanosis Skin: no rash or lesions Neurologic: no focal deficit Psych: calm and cooperative - Constitutional Vitals: Temp Pulse Resp BP Pulse Ox 97.8 F 82 14 146/97 98 10/31/18 13:10 10/31/18 13:14 10/31/18 13:10 10/31/18 13:14 10/31/18 13:10 General appearance: Present: other (intubated, eyes open, no purposeful response to commands) Results - Labs CBC & Chem 7: 10/30/18 05:04 10/29/18 15:19 Labs: Laboratory Last Values WBC 14.4 K/mm3 (4.5-11.0) H 10/23/18 07:21 RBC 3.29 M/mm3 (3.65-5.03) L 10/23/18 07:21 Hgb 7.9 gm/dl (10.1-14.3) L 10/30/18 05:04 Hct 23.8 % (30.3-42.9) L 10/30/18 05:04 MCV 84 fl (79-97) 10/23/18 07:21 MCH 28 pg (28-32) 10/23/18 07:21 MCHC 33 % (30-34) 10/23/18 07:21 RDW 20.5 % (13.2-15.2) H 10/23/18 07:21 Plt Count 625 K/mm3 (140-440) H 10/29/18 07:06 Lymph % (Auto) 8.1 % (13.4-35.0) L 10/23/18 07:21 [place] % (Auto) 7.3 % (0.0-7.3) 10/23/18 07:21 Eos % (Auto) 3.8 % (0.0-4.3) 10/23/18 07:21 Baso % (Auto) 0.8 % (0.0-1.8) 10/23/18 07:21 Lymph # 1.2 K/mm3 (1.2-5.4) 10/23/18 07:21 [place] # 1.0 K/mm3 (0.0-0.8) H 10/23/18 07:21 Eos # 0.6 K/mm3 (0.0-0.4) H 10/23/18 07:21 Baso # 0.1 K/mm3 (0.0-0.1) 10/23/18 07:21 Add Manual Diff Complete 10/17/18 05:00 Total Counted 100 10/17/18 05:00 Seg Neutrophils % 80.0 % (40.0-70.0) H 10/23/18 07:21 Seg Neuts % (Manual) 87.0 % (40.0-70.0) H 10/17/18 05:00 0 % 10/17/18 05:00 9.0 % (13.4-35.0) L 10/17/18 05:00 Reactive Lymphs % (Man) 0 % 10/17/18 05:00 2.0 % (0.0-7.3) 10/17/18 05:00 2.0 % (0.0-4.3) 10/17/18 05:00 0 % (0.0-1.8) 10/17/18 05:00 0 % 10/17/18 05:00 0 % 10/17/18 05:00 0 % 10/17/18 05:00 0 % 10/17/18 05:00 Nucleated RBC % Not Reportable 10/17/18 05:00 Seg Neutrophils # 11.5 K/mm3 (1.8-7.7) H 10/23/18 07:21 Seg Neutrophils # Man 10.1 K/mm3 (1.8-7.7) H 10/17/18 05:00 Band Neutrophils # 0.0 K/mm3 10/17/18 05:00 1.0 K/mm3 (1.2-5.4) L 10/17/18 05:00 Abs React Lymphs (Man) 0.0 K/mm3 10/17/18 05:00 0.2 K/mm3 (0.0-0.8) 10/17/18 05:00 0.2 K/mm3 (0.0-0.4) 10/17/18 05:00 0.0 K/mm3 (0.0-0.1) 10/17/18 05:00 0.0 K/mm3 10/17/18 05:00 0.0 K/mm3 10/17/18 05:00 0.0 K/mm3 10/17/18 05:00 Blast Cells # 0.0 K/mm3 10/17/18 05:00 WBC Morphology Not Reportable 10/17/18 05:00 Hypersegmented Neuts Not Reportable 10/17/18 05:00 Hyposegmented Neuts Not Reportable 10/17/18 05:00 Hypogranular Neuts Not Reportable 10/17/18 05:00 Not Reportable 10/17/18 05:00 Not Reportable 10/17/18 05:00 Not Reportable 10/17/18 05:00 Not Reportable 10/17/18 05:00 Not Reportable 10/17/18 05:00 Not Reportable 10/17/18 05:00 Consistent w auto 10/17/18 05:00 Not Reportable 10/17/18 05:00 Plt Clumps, EDTA Not Reportable 10/17/18 05:00 Not Reportable 10/17/18 05:00 Not Reportable 10/17/18 05:00 Not Reportable 10/17/18 05:00 Plt Morphology Comment Not Reportable 10/17/18 05:00 RBC Morphology Not Reportable 10/17/18 05:00 Dimorphic RBCs Not Reportable 10/17/18 05:00 Not Reportable 10/17/18 05:00 1+ 10/17/18 05:00 Few 10/17/18 05:00 1+ 10/17/18 05:00 Not Reportable 10/17/18 05:00 Rare 10/17/18 05:00 Not Reportable 10/17/18 05:00 Not Reportable 10/17/18 05:00 Not Reportable 10/17/18 05:00 Not Reportable 10/17/18 05:00 Not Reportable 10/17/18 05:00 Not Reportable 10/17/18 05:00 Not Reportable 10/17/18 05:00 Not Reportable 10/17/18 05:00 Not Reportable 10/17/18 05:00 Not Reportable 10/17/18 05:00 Not Reportable 10/17/18 05:00 Not Reportable 10/17/18 05:00 Not Reportable 10/17/18 05:00 Acanthocytes (Spur) Not Reportable 10/17/18 05:00 Rouleaux Not Reportable 10/17/18 05:00 Not Reportable 10/17/18 05:00 Not Reportable 10/17/18 05:00 Not Reportable 10/17/18 05:00 Not Reportable 10/17/18 05:00 Hem Pathologist Commnt No 10/17/18 05:00 PT 19.9 Sec. (12.2-14.9) H 10/31/18 06:00 INR 1.58 (0.87-1.13) H 10/31/18 06:00 APTT 71.0 Sec. (24.2-36.6) H* 10/22/18 11:20 Heparin Anti-Xa Level 0.36 U.I./ml (0.3-0.7) 10/29/18 23:59 POC ABG pH 7.458 (7.35-7.45) H 10/19/18 19:56 POC ABG pCO2 37.9 (35-45) 10/19/18 19:56 POC ABG pO2 63 (80-105) L 10/19/18 19:56 POC ABG HCO3 26.8 (22-26 mml/L) 10/19/18 19:56 POC ABG Total CO2 28 (23-27mmol/L) 10/19/18 19:56 POC ABG O2 Sat 93 10/19/18 19:56 POC ABG Base Excess 3 ((-2) - (+3)mmol/L) 10/19/18 19:56 2 % 10/19/18 19:56 Sodium 135 mmol/L (137-145) L 10/29/18 15:19 Potassium 4.5 mmol/L (3.6-5.0) 10/29/18 15:19 Chloride 103.0 mmol/L (98-107) 10/29/18 15:19 Carbon Dioxide 20 mmol/L (22-30) L 10/29/18 15:19 17 mmol/L 10/29/18 15:19 BUN 33 mg/dL (7-17) H 10/29/18 15:19 1.5 mg/dL (0.7-1.2) H 10/29/18 15:19 Estimated GFR 45 ml/min 10/29/18 15:19 22 % 10/29/18 15:19 Glucose 161 mg/dL (65-100) H 10/29/18 15:19 POC Glucose 406 (70-105) H 10/31/18 11:05 10.2 % (4-6) H 10/07/18 22:08 Lactic Acid 1.50 mmol/L (0.7-2.0) 10/08/18 17:09 Calcium 8.3 mg/dL (8.4-10.2) L 10/29/18 15:19 Phosphorus 7.40 mg/dL (2.5-4.5) H 10/07/18 22:08 Magnesium 1.70 mg/dL (1.7-2.3) 10/18/18 20:20 0.60 mg/dL (0.1-1.2) 10/17/18 05:00 < 0.2 mg/dL (0-0.2) 10/17/18 05:00 0.4 mg/dL 10/17/18 05:00 AST 14 units/L (5-40) 10/17/18 05:00 ALT 8 units/L (7-56) 10/17/18 05:00 104 units/L (35-129) 10/17/18 05:00 40.0 umol/L (25-60) 10/07/18 02:43 < 0.010 ng/mL (0.00-0.029) 10/07/18 08:59 0.20 mg/dL (0.00-1.30) 10/07/18 14:55 NT-Pro-B Natriuret Pep 2865 pg/mL (0-450) H 10/09/18 03:20 5.4 g/dL (6.3-8.2) L 10/17/18 05:00 2.2 g/dL (3.9-5) L 10/17/18 05:00 0.7 % 10/17/18 05:00 Fay (Yellow) 10/21/18 11:00 Cloudy (Clear) 10/21/18 11:00 5.0 (5.0-7.0) 10/21/18 11:00 Ur Specific [place] 1.022 (1.003-1.030) 10/21/18 11:00 >500 mg/dL (Negative) 10/21/18 11:00 50 mg/dL (Negative) 10/21/18 11:00 Neg mg/dL (Negative) 10/21/18 11:00 Lg (Negative) 10/21/18 11:00 Neg (Negative) 10/21/18 11:00 Neg (Negative) 10/21/18 11:00 < 2.0 mg/dL (<2.0) 10/21/18 11:00 Ur Leukocyte Esterase Mod (Negative) 10/21/18 11:00 125.0 /HPF (0.0-6.0) H 10/21/18 11:00 131.0 /HPF (0.0-6.0) 10/21/18 11:00 U Epithel Cells (Auto) 2.0 /HPF (0-13.0) 10/21/18 11:00 2+ /HPF 10/21/18 11:00 Hyaline Casts 3 /LPF 10/07/18 02:34 Few /HPF 10/07/18 02:34 3+ /HPF 10/21/18 11:00 Presumptive negative 10/07/18 02:34 Presumptive negative 10/07/18 02:34 Ur Barbiturates Screen Presumptive negative 10/07/18 02:34 Ur Phencyclidine Scrn Presumptive negative 10/07/18 02:34 Ur Amphetamines Screen Presumptive negative 10/07/18 02:34 U Benzodiazepines Scrn Presumptive negative 10/07/18 02:34 Presumptive negative 10/07/18 02:34 U Marijuana (THC) Screen Presumptive positive 10/07/18 02:34 Disclamer 10/07/18 02:34 Blood Type O POSITIVE 10/22/18 04:39 Antibody Screen Negative 10/22/18 04:39 Crossmatch See Detail 10/22/18 04:39 Active Medications - Current Medications Current Medications: Generic Name Dose Route Start Last Admin Trade Name Freq PRN Reason Stop Dose Admin Acetaminophen 650 mg 10/07/18 04:59 10/30/18 19:54 Tylenol PO 650 mg Q4H PRN Administration Pain MILD(1-3)/Fever >100.5/[id number] Lipase/Protease/Amylase 1 each 10/08/18 10:[address] 10,500 Unit FEEDTUBE PRN PRN For Clogged Feeding Tube Dextrose 50 ml 10/07/18 20:42 10/26/18 16:06 D50w (25gm) Syringe IV 50 ml PRN PRN Administration Hypoglycemia Enoxaparin Sodium 60 mg 10/30/18 22:00 10/31/18 11:15 Lovenox SUB-Q 60 mg Q12HR [facility] Administration Furosemide 40 mg 10/19/18 11:00 10/31/18 10:54 Lasix PO 40 mg QDAY [facility] Administration Hydralazine HCl 10 mg 10/07/18 05:07 10/14/18 08:35 Apresoline IV 10 mg Q4H PRN Administration Blood Pressure Hydralazine HCl 25 mg 10/31/18 14:00 Apresoline PO Q8HR [facility] Hydrophilic Ointment 1 applic 10/07/18 02:40 Vaseline Lip Therapy TP Q2HR PRN Dry Lips Insulin Human Lispro 0 unit 10/25/18 11:30 10/31/18 12:45 Humalog SUB-Q 5 unit ACHS [facility] Administration Protocol Isosorbide Mononitrate 30 mg 10/31/18 11:30 10/31/18 13:14 Imdur PO 30 mg QDAY [facility] Administration Lansoprazole 30 mg 10/16/18 22:00 10/31/18 10:54 Prevacid Solutab FEEDTUBE 30 mg BID [facility] Administration Metoclopramide HCl 10 mg 10/11/18 13:00 10/12/18 19:32 Reglan IV 10 mg Q6HR PRN Administration Nausea And Vomiting Metoprolol Tartrate 50 mg 10/31/18 22:00 Lopressor PO BID [facility] Multi-Ingred Cream/Lotion/Oil/Oint 1 applic 10/07/18 02:40 Artificial Tears Ophth Oint OU Q4HR PRN Dry Eye(s) Ondansetron HCl 4 mg 10/07/18 04:59 Zofran IV Q8H PRN N/V unrelieved by Kojo Quetiapine Fumarate 100 mg 10/09/18 22:00 10/30/18 22:40 Seroquel PO 100 mg QHS [facility] Administration Simple Syrup 15 ml 10/08/18 10:00 Simple Syrup FEEDTUBE PRN PRN Hypoglycemia Simple Syrup 30 ml 10/08/18 10:00 10/09/18 01:09 Simple Syrup FEEDTUBE 30 ml PRN PRN Administration Hypoglycemia Sodium Bicarbonate 325 mg 10/08/18 10:00 Sodium Bicarbonate FEEDTUBE PRN PRN For Clogged Feeding Tube Sodium Chloride 10 ml 10/07/18 10:00 10/31/18 10:55 Sodium Chloride Flush Syringe 10 Ml IV 10 ml BID [facility] Administration Sodium Chloride 10 ml 10/07/18 04:59 10/18/18 07:15 Sodium Chloride Flush Syringe 10 Ml IV 10 ml PRN PRN Administration LINE FLUSH Warfarin Sodium 15 mg 10/30/18 17:00 10/30/18 17:21 Coumadin PO 15 mg DAILY@1700 [facility] Administration Nutrition/Malnutrition Assess - Dietary Evaluation Nutrition/Malnutrition Findings: Nutrition Notes Start: 10/07/18 12:17 Freq: Status: Active Protocol: Document 10/25/18 17:02 RM (Rec: 10/25/18 17:05 [id number]) Nutrition Notes Initial or Follow up Reassessment Current Diagnosis CKD (stage V CKD),Diabetes, Hypertension,Heart Failure Other Pertinent Diagnosis DKA, AMS Current Diet Consistent CHO Labs/Tests Reviewed Pertinent Medications Lasix Height 5 ft 2 in Weight 53 kg [place] Body Weight (kg) 50.00 BMI 21.3 Subjective/Other Information Pt stated that her appetite is good and that she eats all of her meals. Noted lunch at bedside w/100% eaten. Percent of energy/protein needs met: 100%/100% Burn Absent Trauma Absent #1 Nutrition Diagnosis Inadequate oral intake As Evidenced by Signs and Symptoms pt meeting 100% of calorie and protein needs Diagnosis Progress(for reassessment Resolved documentation) Is patient on ventilator? No Is Patient Ambulatory and/or Out of Bed No REE-([facility]-confined to bed) 1333.968 Calculation Used for Recommendations [facility] Additional Notes Pro needs 0.8-1g/k-55g/ day Fluid needs 1ml/kcal Nutrition Intervention Change Diet Order: Continue current Goal #1 Continue to meet at least 75% of calorie and protein needs via PO intakes Anticipated Discharge Needs: Consistent CHO diet Revisit per MD consult or patient Sign Off request:
[2018-10-31] MEDS: APRESOLINE PO SCH ×2 (15:35→21:26)
[2018-10-31] MEDS: TYLENOL PO PRN (17:20)
[2018-10-31] MEDS: COUMADIN PO SCH (17:21)
[2018-10-31] MEDS: HumuLIN R SUB-Q SCH (22:15)
[2018-11-01] MEDS: APRESOLINE PO SCH ×3 (05:56→22:27)
[2018-11-01 07:24] LABS: INR 1.84 (0.87-1.13)
--- NOTE | 2018-11-01 08:11 | Discharge Summary ---
Providers - Providers Date of Admission: 10/07/18 04:59 Attending physician: BOUCHRA SHERIFF MD 10/07/18 06:03 Consult to Physician [CONS] Routine Comment: Consulting Provider: REJI WALTON Physician Instructions: Reason For Exam: acute respt failure 10/07/18 09:07 Consult to Dietitian/Nutrition [CONS] Routine Physician Instructions: Reason For Exam: Reason for Consult: Evaluate nutritional intake 10/07/18 20:42 Consult to Dietitian/Nutrition [CONS] Routine Physician Instructions: Reason For Exam: Reason for Consult: Write/Manage TPN/PPN 10/07/18 23:51 Consult to Dietitian/Nutrition [CONS] Routine Physician Instructions: Reason For Exam: DKA Reason for Consult: Nutrition Recommendations Reason for Consult: Write/Manage Tube Feeding 10/08/18 10:40 Consult to Dietitian/Nutrition [CONS] Routine Physician Instructions: Assess nutrtn needs, initiate, modify, manage TF Reason For Exam: Reason for Consult: Write/Manage Tube Feeding Reason for Consult: Write/Manage Tube Feeding 10/08/18 11:12 Consult to Physician [CONS] Routine Comment: Consulting Provider: MAYI JUAN Physician Instructions: Reason For Exam: mazin 10/09/18 23:14 Consult to Physician [CONS] Routine Comment: Consulting Provider: FREDERICK ZAPATA Physician Instructions: Reason For Exam: seizures 10/11/18 12:53 Consult to Physician [CONS] Routine Comment: Consulting Provider: NANDA HSIEH Physician Instructions: Reason For Exam: pna, sepsis 10/11/18 13:00 Consult to Physician [CONS] Routine Comment: Consulting Provider: ANUP WRIGHT Physician Instructions: Reason For Exam: Cardiomyopathy Consult to Physician [CONS] Urgent Comment: Consulting Provider: LUPILLO MUNOZ Physician Instructions: Reason For Exam: Acute GI Bleeding; Clearance for anticoagulation 10/13/18 10:14 Occupational Therapy Evaluate and Treat [CONS] Routine Comment: Reason For Exam: deconditioning, help with ADLS Physical Therapy Evaluation and Treat [CONS] Routine Comment: Reason For Exam: critical illness, deconditioning Speech Therapy Evaluation and Treat [CONS] Routine Reason For Exam: swallow function evalaution 10/21/18 07:39 Consult to Physician [CONS] Routine Comment: Consulting Provider: CINDY CASTREJON Physician Instructions: Reason For Exam: fever [facility] Hospital[facility] Condition: Stable Hospital course: 48 year old woman with history of coronary artery disease, status post cabbage, diabetes, hypertension who was brought to the emergency room for altered mental status. She was found to have hypoglycemia, she was also having convulsions at the time of admission. The patient was intubated, sp dextrose she was put on the ventilator she was found to have pneumonia and CHF flare and started on antibiotics. patient has history of MV replacement and was on anticoagulation. Pneumonia, severe sepsis - Patient was on IV antibiotics and completed on 10/13 per ID Acute hypoxic respiratory failure on MV >96 hrs Was intubated and on mechanical ventilation - patient was extubated on 10/13 -Weaned to room air on 10/19, status epilepticus; Seizures when most likely due to hypoglycemia -Treated with dextrose - neurology consult appreciated Acute on chronic systolic CHF EF 40%, dilated ventricles -cardiology consult appreciated - on PO lasix History of [facility] mitral valve replacement/hypercoaguable state/coagulopathy due to warfarin INR subtherapeutic, cont warfarin with lovenox bridge to be dc home tomorrow after confident with lovenox teaching Severe anemia sp-transfusion, Gi workup showed neg egd and c scope, outpatient pill camera recommended Currently stable 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, treated as type 1, uncontrolled, a1c 10.2 Continue insulins judiciously, brittle DM with episodes of hypoglycemia and hyperglycemia, labile glc Mazin upon ckd stage 3, vasomotor nephropathy and likely ATN from sepsis Nephrology input appreciated, avoid nephrotoxins, neph signed off on 10/15 acute metabolic encephalopathy - Resolved hypernatremia - Resolved Hyperkalemia - resolved with insulin and diuretics htn urgency; - Controlled - optimized bp meds Marijuana abuse; was counseled, preventive health counseling dvt ppx- chemical, dispo; to [facility] [place] with Lovenox bridge Disposition: [id number]-06 HOME UNDER HOME HL Time spent for discharge: 33 mins Core Measure Documentation - Palliative Care Palliative Care/ Comfort Measures: Not Applicable - Core Measures Any of the following diagnoses?: heart failure - Heart Failure Discharge Requirements PEDRO/ARB for LVSD if EF <40%: Not Applicable Reason for no PEDRO/ARB: Renal impairment Beta zoila at discharge: Yes Exam - Constitutional Vitals: Temp Pulse Resp BP Pulse Ox 97.9 F 97 H 20 159/97 97 11/01/18 05:52 11/01/18 05:56 11/01/18 05:52 11/01/18 05:56 11/01/18 05:52 General appearance: Present: no acute distress, well-nourished - EENT Eyes: Present: PERRL ENT: hearing intact, clear oral mucosa - Neck Neck: Present: supple, normal ROM - Respiratory Respiratory effort: normal Respiratory: bilateral: CTA - Cardiovascular Heart Sounds: Present: S1 & S2. Absent: rub, click - Extremities Extremities: pulses symmetrical, No edema Peripheral Pulses: within normal limits - Abdominal General gastrointestinal: Present: soft, non-tender, non-distended, normal bowel sounds Female genitourinary: Present: normal - Integumentary Integumentary: Present: clear, warm, dry - Musculoskeletal Musculoskeletal: gait normal, strength equal bilaterally - Psychiatric Psychiatric: appropriate mood/affect, no intact judgment & insight (poor insight) - Neurologic Neurologic: CNII-XII intact, moves all extremities Plan Follow up with: ALEXANDRA HUERTATROY MD RUBI [Primary Care Provider] - 3-5 Days Forms: Warfarin Discharge Instruction Prescriptions: QUEtiapine [SEROquel] 100 mg PO QHS #30 tablet hydrALAZINE [Apresoline TAB] 25 mg PO Q8HR #90 tablet Warfarin [Coumadin] 15 mg PO DAILY@1700 7 Days tablet ISOSORBIDE MONOnitrate [Imdur ER] 30 mg PO QDAY #30 tablet Insulin Glargine [Lantus VIAL] 10 units SUB-Q DAILY #1 vial Furosemide [Lasix TAB] 40 mg PO QDAY #30 tablet Metoprolol [Lopressor TAB] 50 mg PO BID #120 tablet Enoxaparin [Lovenox] 60 mg SUB-Q Q12HR #14 syringe Pantoprazole [Protonix] 40 mg PO QDAY #30 tablet
[2018-11-01] MEDS: HumaLOG SUB-Q SCH ×6 (08:30→16:58)
[2018-11-01] MEDS: IMDUR PO SCH (09:11)
[2018-11-01] MEDS: PREVACID SOLUTAB FEEDTUBE SCH ×2 (09:12→22:28)
[2018-11-01] MEDS: LOPRESSOR PO SCH ×2 (09:12→22:27)
[2018-11-01] MEDS: LASIX PO SCH (09:12)
[2018-11-01] MEDS: SODIUM CHLORIDE FLUSH SYRINGE 10 ML IV SCH ×2 (09:18→22:28)
[2018-11-01] MEDS: LOVENOX SUB-Q SCH ×2 (09:18→22:29)
[2018-11-01] MEDS: LANTUS SUB-Q SCH (13:14)
--- NOTE | 2018-11-01 14:38 | Progress Note ---
Assessment and Plan Assessment and plan: 48 year old woman with history of coronary artery disease, status post cabbage, diabetes, hypertension who was brought to the emergency room for altered mental status. She was found to have hypoglycemia, she was also having convulsions at the time of admission. The patient was intubated, sp dextrose she was put on the ventilator she was found to have pneumonia and CHF flare and started on antibiotics. patient has history of MV replacement and was on anticoagulation. Pneumonia, severe sepsis - Patient was on IV antibiotics and completed on 10/13 per ID Acute hypoxic respiratory failure on MV >96 hrs Was intubated and on mechanical ventilation - patient was extubated on 10/13 -Weaned to room air on 10/19, status epilepticus; Seizures when most likely due to hypoglycemia -Treated with dextrose - neurology consult appreciated Acute on chronic systolic CHF EF 40%, dilated ventricles -cardiology consult appreciated - on PO lasix History of [facility] mitral valve replacement/hypercoaguable state/coagulopathy due to warfarin INR subtherapeutic, cont warfarin with lovenox bridge to be dc after confident with lovenox teaching, she is still unable to self inject, her room-mate has not shown up for teaching Severe anemia sp-transfusion, Gi workup showed neg egd and c scope, outpatient pill camera recommended Currently stable 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, treated as type 1, uncontrolled, a1c 10.2 Continue insulins judiciously, brittle DM with episodes of hypoglycemia and hyperglycemia, labile glc Mazin upon ckd stage 3, vasomotor nephropathy and likely ATN from sepsis Nephrology input appreciated, avoid nephrotoxins, neph signed off on 10/15 acute metabolic encephalopathy - Resolved hypernatremia - Resolved Hyperkalemia - resolved with insulin and diuretics htn urgency; - Controlled - optimized bp meds Marijuana abuse; was counseled, preventive health counseling dvt ppx- chemical, dispo; to SARA with Lovenox bridge History Interval history: Review of systems Constitutional: No fevers, no malaise, no joint pains CVS: No chest pain, no pedal edema, sob is resolved GI:no hematemesis, blood in stool or melena, No abdominal pain, no diarrhea, no vomiting, no constipation Respiratory: No cough or wheezing Hospitalist Physical - Physical exam Narrative exam: General.: appears well HEENT: Moist mucous membranes, extraocular muscles intact, no lymphadenopathy Neck: supple Cardiac: S1-S2 heard Lungs: Clear to auscultation Abdomen: soft , nontender, nondistended, bowel sounds positive Extremities: no edema clubbing or cyanosis Skin: no rash or lesions Neurologic: no focal deficit Psych: calm and cooperative - Constitutional Vitals: Temp Pulse Resp BP Pulse Ox 98.1 F 84 18 136/78 99 11/01/18 12:08 11/01/18 12:08 11/01/18 12:08 11/01/18 12:08 11/01/18 12:08 General appearance: Present: no acute distress, well-nourished Results - Labs CBC & Chem 7: 10/30/18 05:04 10/29/18 15:19 Labs: Laboratory Last Values WBC 14.4 K/mm3 (4.5-11.0) H 10/23/18 07:21 RBC 3.29 M/mm3 (3.65-5.03) L 10/23/18 07:21 Hgb 7.9 gm/dl (10.1-14.3) L 10/30/18 05:04 Hct 23.8 % (30.3-42.9) L 10/30/18 05:04 MCV 84 fl (79-97) 10/23/18 07:21 MCH 28 pg (28-32) 10/23/18 07:21 MCHC 33 % (30-34) 10/23/18 07:21 RDW 20.5 % (13.2-15.2) H 10/23/18 07:21 Plt Count 625 K/mm3 (140-440) H 10/29/18 07:06 Lymph % (Auto) 8.1 % (13.4-35.0) L 10/23/18 07:21 [place] % (Auto) 7.3 % (0.0-7.3) 10/23/18 07:21 Eos % (Auto) 3.8 % (0.0-4.3) 10/23/18 07:21 Baso % (Auto) 0.8 % (0.0-1.8) 10/23/18 07:21 Lymph # 1.2 K/mm3 (1.2-5.4) 10/23/18 07:21 [place] # 1.0 K/mm3 (0.0-0.8) H 10/23/18 07:21 Eos # 0.6 K/mm3 (0.0-0.4) H 10/23/18 07:21 Baso # 0.1 K/mm3 (0.0-0.1) 10/23/18 07:21 Add Manual Diff Complete 10/17/18 05:00 Total Counted 100 10/17/18 05:00 Seg Neutrophils % 80.0 % (40.0-70.0) H 10/23/18 07:21 Seg Neuts % (Manual) 87.0 % (40.0-70.0) H 10/17/18 05:00 0 % 10/17/18 05:00 9.0 % (13.4-35.0) L 10/17/18 05:00 Reactive Lymphs % (Man) 0 % 10/17/18 05:00 2.0 % (0.0-7.3) 10/17/18 05:00 2.0 % (0.0-4.3) 10/17/18 05:00 0 % (0.0-1.8) 10/17/18 05:00 0 % 10/17/18 05:00 0 % 10/17/18 05:00 0 % 10/17/18 05:00 0 % 10/17/18 05:00 Nucleated RBC % Not Reportable 10/17/18 05:00 Seg Neutrophils # 11.5 K/mm3 (1.8-7.7) H 10/23/18 07:21 Seg Neutrophils # Man 10.1 K/mm3 (1.8-7.7) H 10/17/18 05:00 Band Neutrophils # 0.0 K/mm3 10/17/18 05:00 1.0 K/mm3 (1.2-5.4) L 10/17/18 05:00 Abs React Lymphs (Man) 0.0 K/mm3 10/17/18 05:00 0.2 K/mm3 (0.0-0.8) 10/17/18 05:00 0.2 K/mm3 (0.0-0.4) 10/17/18 05:00 0.0 K/mm3 (0.0-0.1) 10/17/18 05:00 0.0 K/mm3 10/17/18 05:00 0.0 K/mm3 10/17/18 05:00 0.0 K/mm3 10/17/18 05:00 Blast Cells # 0.0 K/mm3 10/17/18 05:00 WBC Morphology Not Reportable 10/17/18 05:00 Hypersegmented Neuts Not Reportable 10/17/18 05:00 Hyposegmented Neuts Not Reportable 10/17/18 05:00 Hypogranular Neuts Not Reportable 10/17/18 05:00 Not Reportable 10/17/18 05:00 Not Reportable 10/17/18 05:00 Not Reportable 10/17/18 05:00 Not Reportable 10/17/18 05:00 Not Reportable 10/17/18 05:00 Not Reportable 10/17/18 05:00 Consistent w auto 10/17/18 05:00 Not Reportable 10/17/18 05:00 Plt Clumps, EDTA Not Reportable 10/17/18 05:00 Not Reportable 10/17/18 05:00 Not Reportable 10/17/18 05:00 Not Reportable 10/17/18 05:00 Plt Morphology Comment Not Reportable 10/17/18 05:00 RBC Morphology Not Reportable 10/17/18 05:00 Dimorphic RBCs Not Reportable 10/17/18 05:00 Not Reportable 10/17/18 05:00 1+ 10/17/18 05:00 Few 10/17/18 05:00 1+ 10/17/18 05:00 Not Reportable 10/17/18 05:00 Rare 10/17/18 05:00 Not Reportable 10/17/18 05:00 Not Reportable 10/17/18 05:00 Not Reportable 10/17/18 05:00 Not Reportable 10/17/18 05:00 Not Reportable 10/17/18 05:00 Not Reportable 10/17/18 05:00 Not Reportable 10/17/18 05:00 Not Reportable 10/17/18 05:00 Not Reportable 10/17/18 05:00 Not Reportable 10/17/18 05:00 Not Reportable 10/17/18 05:00 Not Reportable 10/17/18 05:00 Not Reportable 10/17/18 05:00 Acanthocytes (Spur) Not Reportable 10/17/18 05:00 Rouleaux Not Reportable 10/17/18 05:00 Not Reportable 10/17/18 05:00 Not Reportable 10/17/18 05:00 Not Reportable 10/17/18 05:00 Not Reportable 10/17/18 05:00 Hem Pathologist Commnt No 10/17/18 05:00 PT 22.5 Sec. (12.2-14.9) H 11/01/18 07:00 INR 1.84 (0.87-1.13) H 11/01/18 07:00 APTT 71.0 Sec. (24.2-36.6) H* 10/22/18 11:20 Heparin Anti-Xa Level 0.36 U.I./ml (0.3-0.7) 10/29/18 23:59 POC ABG pH 7.458 (7.35-7.45) H 10/19/18 19:56 POC ABG pCO2 37.9 (35-45) 10/19/18 19:56 POC ABG pO2 63 (80-105) L 10/19/18 19:56 POC ABG HCO3 26.8 (22-26 mml/L) 10/19/18 19:56 POC ABG Total CO2 28 (23-27mmol/L) 10/19/18 19:56 POC ABG O2 Sat 93 10/19/18 19:56 POC ABG Base Excess 3 ((-2) - (+3)mmol/L) 10/19/18 19:56 2 % 10/19/18 19:56 Sodium 135 mmol/L (137-145) L 10/29/18 15:19 Potassium 4.5 mmol/L (3.6-5.0) 10/29/18 15:19 Chloride 103.0 mmol/L (98-107) 10/29/18 15:19 Carbon Dioxide 20 mmol/L (22-30) L 10/29/18 15:19 17 mmol/L 10/29/18 15:19 BUN 33 mg/dL (7-17) H 10/29/18 15:19 1.5 mg/dL (0.7-1.2) H 10/29/18 15:19 Estimated GFR 45 ml/min 10/29/18 15:19 22 % 10/29/18 15:19 Glucose 161 mg/dL (65-100) H 10/29/18 15:19 POC Glucose 158 (70-105) H 11/01/18 12:15 10.2 % (4-6) H 10/07/18 22:08 Lactic Acid 1.50 mmol/L (0.7-2.0) 10/08/18 17:09 Calcium 8.3 mg/dL (8.4-10.2) L 10/29/18 15:19 Phosphorus 7.40 mg/dL (2.5-4.5) H 10/07/18 22:08 Magnesium 1.70 mg/dL (1.7-2.3) 10/18/18 20:20 0.60 mg/dL (0.1-1.2) 10/17/18 05:00 < 0.2 mg/dL (0-0.2) 10/17/18 05:00 0.4 mg/dL 10/17/18 05:00 AST 14 units/L (5-40) 10/17/18 05:00 ALT 8 units/L (7-56) 10/17/18 05:00 104 units/L (35-129) 10/17/18 05:00 40.0 umol/L (25-60) 10/07/18 02:43 < 0.010 ng/mL (0.00-0.029) 10/07/18 08:59 0.20 mg/dL (0.00-1.30) 10/07/18 14:55 NT-Pro-B Natriuret Pep 2865 pg/mL (0-450) H 10/09/18 03:20 5.4 g/dL (6.3-8.2) L 10/17/18 05:00 2.2 g/dL (3.9-5) L 10/17/18 05:00 0.7 % 10/17/18 05:00 Fay (Yellow) 10/21/18 11:00 Cloudy (Clear) 10/21/18 11:00 5.0 (5.0-7.0) 10/21/18 11:00 Ur Specific [place] 1.022 (1.003-1.030) 10/21/18 11:00 >500 mg/dL (Negative) 10/21/18 11:00 50 mg/dL (Negative) 10/21/18 11:00 Neg mg/dL (Negative) 10/21/18 11:00 Lg (Negative) 10/21/18 11:00 Neg (Negative) 10/21/18 11:00 Neg (Negative) 10/21/18 11:00 < 2.0 mg/dL (<2.0) 10/21/18 11:00 Ur Leukocyte Esterase Mod (Negative) 10/21/18 11:00 125.0 /HPF (0.0-6.0) H 10/21/18 11:00 131.0 /HPF (0.0-6.0) 10/21/18 11:00 U Epithel Cells (Auto) 2.0 /HPF (0-13.0) 10/21/18 11:00 2+ /HPF 10/21/18 11:00 Hyaline Casts 3 /LPF 10/07/18 02:34 Few /HPF 10/07/18 02:34 3+ /HPF 10/21/18 11:00 Presumptive negative 10/07/18 02:34 Presumptive negative 10/07/18 02:34 Ur Barbiturates Screen Presumptive negative 10/07/18 02:34 Ur Phencyclidine Scrn Presumptive negative 10/07/18 02:34 Ur Amphetamines Screen Presumptive negative 10/07/18 02:34 U Benzodiazepines Scrn Presumptive negative 10/07/18 02:34 Presumptive negative 10/07/18 02:34 U Marijuana (THC) Screen Presumptive positive 10/07/18 02:34 Disclamer 10/07/18 02:34 Blood Type O POSITIVE 10/22/18 04:39 Antibody Screen Negative 10/22/18 04:39 Crossmatch See Detail 10/22/18 04:39 Active Medications - Current Medications Current Medications: Generic Name Dose Route Start Last Admin Trade Name Freq PRN Reason Stop Dose Admin Acetaminophen 650 mg 10/07/18 04:59 10/31/18 17:20 Tylenol PO 650 mg Q4H PRN Administration Pain MILD(1-3)/Fever >100.5/RODRIGUEZ Lipase/Protease/Amylase 1 each 10/08/18 10:00 [place] 10,500 Unit FEEDTUBE PRN PRN For Clogged Feeding Tube Dextrose 50 ml 10/31/18 13:47 D50w (25gm) Syringe IV PRN PRN Hypoglycemia Enoxaparin Sodium 60 mg 10/30/18 22:00 11/01/18 09:18 Lovenox SUB-Q 60 mg Q12HR [facility] Administration Furosemide 40 mg 10/19/18 11:00 11/01/18 09:12 Lasix PO 40 mg QDAY [facility] Administration Hydralazine HCl 10 mg 10/07/18 05:07 10/14/18 08:35 Apresoline IV 10 mg Q4H PRN Administration Blood Pressure Hydralazine HCl 25 mg 10/31/18 14:00 11/01/18 05:56 Apresoline PO 25 mg Q8HR [facility] Administration Hydrophilic Ointment 1 applic 10/07/18 02:40 Vaseline Lip Therapy TP Q2HR PRN Dry Lips Insulin Glargine 10 units 10/31/18 16:00 11/01/18 13:14 Lantus SUB-Q 10 units DAILY [facility] Administration Insulin Human Lispro 0 unit 10/31/18 16:30 11/01/18 13:14 Humalog SUB-Q 2 unit AC [facility] Administration Protocol Insulin Human Lispro 3 unit 10/31/18 16:30 11/01/18 13:14 Humalog SUB-Q 3 unit AC [facility] Administration Insulin Human Regular 0 units 10/31/18 22:00 10/31/18 22:15 Humulin R SUB-Q Not Given QHS [facility] Protocol Isosorbide Mononitrate 30 mg 10/31/18 11:30 11/01/18 09:11 Imdur PO 30 mg QDAY [facility] Administration Lansoprazole 30 mg 10/16/18 22:00 11/01/18 09:12 Prevacid Solutab FEEDTUBE 30 mg BID [facility] Administration Metoclopramide HCl 10 mg 10/11/18 13:00 10/12/18 19:32 Reglan IV 10 mg Q6HR PRN Administration Nausea And Vomiting Metoprolol Tartrate 50 mg 10/31/18 22:00 11/01/18 09:12 Lopressor PO 50 mg BID [facility] Administration Multi-Ingred Cream/Lotion/Oil/Oint 1 applic 10/07/18 02:40 Artificial Tears Ophth Oint OU Q4HR PRN Dry Eye(s) Ondansetron HCl 4 mg 10/07/18 04:59 Zofran IV Q8H PRN N/V unrelieved by Kojo Quetiapine Fumarate 100 mg 10/09/18 22:00 10/31/18 21:25 Seroquel PO 100 mg QHS [facility] Administration Simple Syrup 15 ml 10/08/18 10:00 Simple Syrup FEEDTUBE PRN PRN Hypoglycemia Simple Syrup 30 ml 10/08/18 10:00 10/09/18 01:09 Simple Syrup FEEDTUBE 30 ml PRN PRN Administration Hypoglycemia Sodium Bicarbonate 325 mg 10/08/18 10:00 Sodium Bicarbonate FEEDTUBE PRN PRN For Clogged Feeding Tube Sodium Chloride 10 ml 10/07/18 10:00 11/01/18 09:18 Sodium Chloride Flush Syringe 10 Ml IV 10 ml BID [facility] Administration Sodium Chloride 10 ml 10/07/18 04:59 10/18/18 07:15 Sodium Chloride Flush Syringe 10 Ml IV 10 ml PRN PRN Administration LINE FLUSH Warfarin Sodium 15 mg 10/30/18 17:00 10/31/18 17:21 Coumadin PO 15 mg DAILY@1700 [facility] Administration Nutrition/Malnutrition Assess - Dietary Evaluation Nutrition/Malnutrition Findings: Nutrition Notes Start: 10/07/18 12:17 Freq: Status: Active Protocol: Document 10/25/18 17:02 (Rec: 10/25/18 17:05 [email or web address]) Nutrition Notes Initial or Follow up Reassessment Current Diagnosis CKD (stage V CKD),Diabetes, Hypertension,Heart Failure Other Pertinent Diagnosis DKA, AMS Current Diet Consistent CHO Labs/Tests Reviewed Pertinent Medications Lasix Height 5 ft 2 in Weight 53 kg [place] Body Weight (kg) 50.00 BMI 21.3 Subjective/Other Information Pt stated that her appetite is good and that she eats all of her meals. Noted lunch at bedside w/100% eaten. Percent of energy/protein needs met: 100%/100% Burn Absent Trauma Absent #1 Nutrition Diagnosis Inadequate oral intake As Evidenced by Signs and Symptoms pt meeting 100% of calorie and protein needs Diagnosis Progress(for reassessment Resolved documentation) Is patient on ventilator? No Is Patient Ambulatory and/or Out of Bed No REE-([place]-St. Jeor-confined to bed) 1333.968 Calculation Used for Recommendations [place]-St Jeor Additional Notes Pro needs 0.8-1g/k-55g/ day Fluid needs 1ml/kcal Nutrition Intervention Change Diet Order: Continue current Goal #1 Continue to meet at least 75% of calorie and protein needs via PO intakes Anticipated Discharge Needs: Consistent CHO diet Revisit per MD consult or patient Sign Off request:
[2018-11-01] MEDS: COUMADIN PO SCH (16:54)
[2018-11-01] MEDS: TYLENOL PO PRN (16:54)
[2018-11-01] MEDS: HumuLIN R SUB-Q SCH (22:30)
[2018-11-02] MEDS: APRESOLINE PO SCH ×3 (05:58→22:23)
[2018-11-02 06:33] LABS: INR 2.03 (0.87-1.13)
[2018-11-02] MEDS: HumaLOG SUB-Q SCH ×6 (08:33→18:05)
[2018-11-02] MEDS: IMDUR PO SCH (11:16)
[2018-11-02] MEDS: LOPRESSOR PO SCH ×2 (11:16→22:21)
[2018-11-02] MEDS: PREVACID SOLUTAB FEEDTUBE SCH ×2 (11:17→22:23)
[2018-11-02] MEDS: LOVENOX SUB-Q SCH ×2 (11:17→22:22)
[2018-11-02] MEDS: LASIX PO SCH (11:17)
[2018-11-02] MEDS: SODIUM CHLORIDE FLUSH SYRINGE 10 ML IV SCH ×2 (11:17→22:23)
[2018-11-02] MEDS: TYLENOL PO PRN (11:19)
--- NOTE | 2018-11-02 12:20 | Progress Note ---
Assessment and Plan Assessment and plan: 48 year old woman with history of coronary artery disease, status post cabbage, diabetes, hypertension who was brought to the emergency room for altered mental status. She was found to have hypoglycemia, she was also having convulsions at the time of admission. The patient was intubated, sp dextrose she was put on the ventilator she was found to have pneumonia and CHF flare and started on antibiotics. patient has history of MV replacement and was on anticoagulation. History of mech mitral valve replacement/hypercoaguable state/coagulopathy due to warfarin INR subtherapeutic, cont warfarin with lovenox bridge to be dc after confident with lovenox teaching, she is still unable to self inject, her room-mate has not shown up for teaching we'll for now we will plan to dc when INR is >2.5 Pneumonia, severe sepsis - Patient was on IV antibiotics and completed on 10/13 per ID Acute hypoxic respiratory failure on MV >96 hrs Was intubated and on mechanical ventilation - patient was extubated on 10/13 -Weaned to room air on 10/19, status epilepticus; Seizures when most likely due to hypoglycemia -Treated with dextrose - neurology consult appreciated Acute on chronic systolic CHF EF 40%, dilated ventricles -cardiology consult appreciated - on PO lasix [facility]/hypercoaguable state/coagulopathy due to warfarin INR subtherapeutic, cont warfarin with lovenox bridge to be dc after confident with lovenox teaching, she is still unable to self inject, her room-mate has not shown up for teaching Severe anemia sp-transfusion, Gi workup showed neg egd and c scope, outpatient pill camera recommended Currently stable 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, treated as type 1, uncontrolled, a1c 10.2 Continue insulins judiciously, brittle DM with episodes of hypoglycemia and hyperglycemia, labile glc Mazin upon ckd stage 3, vasomotor nephropathy and likely ATN from sepsis Nephrology input appreciated, avoid nephrotoxins, neph signed off on 10/15 acute metabolic encephalopathy - Resolved hypernatremia - Resolved Hyperkalemia - resolved with insulin and diuretics htn urgency; - Controlled - optimized bp meds Marijuana abuse; was counseled, preventive health counseling dvt ppx- chemical, dispo; to SARA with Lovenox bridge History Interval history: Review of systems Constitutional: No fevers, no malaise, no joint pains CVS: No chest pain, no pedal edema, sob is resolved GI:no hematemesis, blood in stool or melena, No abdominal pain, no diarrhea, no vomiting, no constipation Respiratory: No cough or wheezing Hospitalist Physical - Physical exam Narrative exam: General.: appears well HEENT: Moist mucous membranes, extraocular muscles intact, no lymphadenopathy Neck: supple Cardiac: S1-S2 heard Lungs: Clear to auscultation Abdomen: soft , nontender, nondistended, bowel sounds positive Extremities: no edema clubbing or cyanosis Skin: no rash or lesions Neurologic: no focal deficit Psych: calm and cooperative - Constitutional Vitals: Temp Pulse Resp BP Pulse Ox 97.6 F 82 16 123/76 100 11/02/18 11:45 11/02/18 11:45 11/02/18 11:45 11/02/18 11:45 11/02/18 11:45 General appearance: Present: no acute distress, well-nourished Results - Labs CBC & Chem 7: 10/30/18 05:04 10/29/18 15:19 Labs: Laboratory Last Values WBC 14.4 K/mm3 (4.5-11.0) H 10/23/18 07:21 RBC 3.29 M/mm3 (3.65-5.03) L 10/23/18 07:21 Hgb 7.9 gm/dl (10.1-14.3) L 10/30/18 05:04 Hct 23.8 % (30.3-42.9) L 10/30/18 05:04 MCV 84 fl (79-97) 10/23/18 07:21 MCH 28 pg (28-32) 10/23/18 07:21 MCHC 33 % (30-34) 10/23/18 07:21 RDW 20.5 % (13.2-15.2) H 10/23/18 07:21 Plt Count 625 K/mm3 (140-440) H 10/29/18 07:06 Lymph % (Auto) 8.1 % (13.4-35.0) L 10/23/18 07:21 [place] % (Auto) 7.3 % (0.0-7.3) 10/23/18 07:21 Eos % (Auto) 3.8 % (0.0-4.3) 10/23/18 07:21 Baso % (Auto) 0.8 % (0.0-1.8) 10/23/18 07:21 Lymph # 1.2 K/mm3 (1.2-5.4) 10/23/18 07:21 [place] # 1.0 K/mm3 (0.0-0.8) H 10/23/18 07:21 Eos # 0.6 K/mm3 (0.0-0.4) H 10/23/18 07:21 Baso # 0.1 K/mm3 (0.0-0.1) 10/23/18 07:21 Add Manual Diff Complete 10/17/18 05:00 Total Counted 100 10/17/18 05:00 Seg Neutrophils % 80.0 % (40.0-70.0) H 10/23/18 07:21 Seg Neuts % (Manual) 87.0 % (40.0-70.0) H 10/17/18 05:00 0 % 10/17/18 05:00 9.0 % (13.4-35.0) L 10/17/18 05:00 Reactive Lymphs % (Man) 0 % 10/17/18 05:00 2.0 % (0.0-7.3) 10/17/18 05:00 2.0 % (0.0-4.3) 10/17/18 05:00 0 % (0.0-1.8) 10/17/18 05:00 0 % 10/17/18 05:00 0 % 10/17/18 05:00 0 % 10/17/18 05:00 0 % 10/17/18 05:00 Nucleated RBC % Not Reportable 10/17/18 05:00 Seg Neutrophils # 11.5 K/mm3 (1.8-7.7) H 10/23/18 07:21 Seg Neutrophils # Man 10.1 K/mm3 (1.8-7.7) H 10/17/18 05:00 Band Neutrophils # 0.0 K/mm3 10/17/18 05:00 1.0 K/mm3 (1.2-5.4) L 10/17/18 05:00 Abs React Lymphs (Man) 0.0 K/mm3 10/17/18 05:00 0.2 K/mm3 (0.0-0.8) 10/17/18 05:00 0.2 K/mm3 (0.0-0.4) 10/17/18 05:00 0.0 K/mm3 (0.0-0.1) 10/17/18 05:00 0.0 K/mm3 10/17/18 05:00 0.0 K/mm3 10/17/18 05:00 0.0 K/mm3 10/17/18 05:00 Blast Cells # 0.0 K/mm3 10/17/18 05:00 WBC Morphology Not Reportable 10/17/18 05:00 Hypersegmented Neuts Not Reportable 10/17/18 05:00 Hyposegmented Neuts Not Reportable 10/17/18 05:00 Hypogranular Neuts Not Reportable 10/17/18 05:00 Not Reportable 10/17/18 05:00 Not Reportable 10/17/18 05:00 Not Reportable 10/17/18 05:00 Not Reportable 10/17/18 05:00 Not Reportable 10/17/18 05:00 Not Reportable 10/17/18 05:00 Consistent w auto 10/17/18 05:00 Not Reportable 10/17/18 05:00 Plt Clumps, EDTA Not Reportable 10/17/18 05:00 Not Reportable 10/17/18 05:00 Not Reportable 10/17/18 05:00 Not Reportable 10/17/18 05:00 Plt Morphology Comment Not Reportable 10/17/18 05:00 RBC Morphology Not Reportable 10/17/18 05:00 Dimorphic RBCs Not Reportable 10/17/18 05:00 Not Reportable 10/17/18 05:00 1+ 10/17/18 05:00 Few 10/17/18 05:00 1+ 10/17/18 05:00 Not Reportable 10/17/18 05:00 Rare 10/17/18 05:00 Not Reportable 10/17/18 05:00 Not Reportable 10/17/18 05:00 Not Reportable 10/17/18 05:00 Not Reportable 10/17/18 05:00 Not Reportable 10/17/18 05:00 Not Reportable 10/17/18 05:00 Not Reportable 10/17/18 05:00 Not Reportable 10/17/18 05:00 Not Reportable 10/17/18 05:00 Not Reportable 10/17/18 05:00 Not Reportable 10/17/18 05:00 Not Reportable 10/17/18 05:00 Not Reportable 10/17/18 05:00 Acanthocytes (Spur) Not Reportable 10/17/18 05:00 Rouleaux Not Reportable 10/17/18 05:00 Not Reportable 10/17/18 05:00 Not Reportable 10/17/18 05:00 Not Reportable 10/17/18 05:00 Not Reportable 10/17/18 05:00 Hem Pathologist Commnt No 10/17/18 05:00 PT 24.3 Sec. (12.2-14.9) H 11/02/18 06:00 INR 2.03 (0.87-1.13) H 11/02/18 06:00 APTT 71.0 Sec. (24.2-36.6) H* 10/22/18 11:20 Heparin Anti-Xa Level 0.36 U.I./ml (0.3-0.7) 10/29/18 23:59 POC ABG pH 7.458 (7.35-7.45) H 10/19/18 19:56 POC ABG pCO2 37.9 (35-45) 10/19/18 19:56 POC ABG pO2 63 (80-105) L 10/19/18 19:56 POC ABG HCO3 26.8 (22-26 mml/L) 10/19/18 19:56 POC ABG Total CO2 28 (23-27mmol/L) 10/19/18 19:56 POC ABG O2 Sat 93 10/19/18 19:56 POC ABG Base Excess 3 ((-2) - (+3)mmol/L) 10/19/18 19:56 2 % 10/19/18 19:56 Sodium 135 mmol/L (137-145) L 10/29/18 15:19 Potassium 4.5 mmol/L (3.6-5.0) 10/29/18 15:19 Chloride 103.0 mmol/L (98-107) 10/29/18 15:19 Carbon Dioxide 20 mmol/L (22-30) L 10/29/18 15:19 17 mmol/L 10/29/18 15:19 BUN 33 mg/dL (7-17) H 10/29/18 15:19 1.5 mg/dL (0.7-1.2) H 10/29/18 15:19 Estimated GFR 45 ml/min 10/29/18 15:19 22 % 10/29/18 15:19 Glucose 161 mg/dL (65-100) H 10/29/18 15:19 POC Glucose 51 (70-105) L 11/02/18 07:46 10.2 % (4-6) H 10/07/18 22:08 Lactic Acid 1.50 mmol/L (0.7-2.0) 10/08/18 17:09 Calcium 8.3 mg/dL (8.4-10.2) L 10/29/18 15:19 Phosphorus 7.40 mg/dL (2.5-4.5) H 10/07/18 22:08 Magnesium 1.70 mg/dL (1.7-2.3) 10/18/18 20:20 0.60 mg/dL (0.1-1.2) 10/17/18 05:00 < 0.2 mg/dL (0-0.2) 10/17/18 05:00 0.4 mg/dL 10/17/18 05:00 AST 14 units/L (5-40) 10/17/18 05:00 ALT 8 units/L (7-56) 10/17/18 05:00 104 units/L (35-129) 10/17/18 05:00 40.0 umol/L (25-60) 10/07/18 02:43 < 0.010 ng/mL (0.00-0.029) 10/07/18 08:59 0.20 mg/dL (0.00-1.30) 10/07/18 14:55 NT-Pro-B Natriuret Pep 2865 pg/mL (0-450) H 10/09/18 03:20 5.4 g/dL (6.3-8.2) L 10/17/18 05:00 2.2 g/dL (3.9-5) L 10/17/18 05:00 0.7 % 10/17/18 05:00 Fay (Yellow) 10/21/18 11:00 Cloudy (Clear) 10/21/18 11:00 5.0 (5.0-7.0) 10/21/18 11:00 Ur Specific Gamaliel 1.022 (1.003-1.030) 10/21/18 11:00 >500 mg/dL (Negative) 10/21/18 11:00 50 mg/dL (Negative) 10/21/18 11:00 Neg mg/dL (Negative) 10/21/18 11:00 Lg (Negative) 10/21/18 11:00 Neg (Negative) 10/21/18 11:00 Neg (Negative) 10/21/18 11:00 < 2.0 mg/dL (<2.0) 10/21/18 11:00 Ur Leukocyte Esterase Mod (Negative) 10/21/18 11:00 125.0 /HPF (0.0-6.0) H 10/21/18 11:00 131.0 /HPF (0.0-6.0) 10/21/18 11:00 U Epithel Cells (Auto) 2.0 /HPF (0-13.0) 10/21/18 11:00 2+ /HPF 10/21/18 11:00 Hyaline Casts 3 /LPF 10/07/18 02:34 Few /HPF 10/07/18 02:34 3+ /HPF 10/21/18 11:00 Presumptive negative 10/07/18 02:34 Presumptive negative 10/07/18 02:34 Ur Barbiturates Screen Presumptive negative 10/07/18 02:34 Ur Phencyclidine Scrn Presumptive negative 10/07/18 02:34 Ur Amphetamines Screen Presumptive negative 10/07/18 02:34 U Benzodiazepines Scrn Presumptive negative 10/07/18 02:34 Presumptive negative 10/07/18 02:34 U Marijuana (THC) Screen Presumptive positive 10/07/18 02:34 Disclamer 10/07/18 02:34 Blood Type O POSITIVE 10/22/18 04:39 Antibody Screen Negative 10/22/18 04:39 Crossmatch See Detail 10/22/18 04:39 Active Medications - Current Medications Current Medications: Generic Name Dose Route Start Last Admin Trade Name Freq PRN Reason Stop Dose Admin Acetaminophen 650 mg 10/07/18 04:59 11/02/18 11:19 Tylenol PO 650 mg Q4H PRN Administration Pain MILD(1-3)/Fever >100.5/RODRIGUEZ Lipase/Protease/Amylase 1 each 10/08/18 10:00 Jonatan Arredondo 10,500 Unit FEEDTUBE PRN PRN For Clogged Feeding Tube Dextrose 50 ml 10/31/18 13:47 D50w (25gm) Syringe IV PRN PRN Hypoglycemia Enoxaparin Sodium 60 mg 10/30/18 22:00 11/02/18 11:17 Lovenox SUB-Q 60 mg Q12HR [facility] Administration Furosemide 40 mg 10/19/18 11:00 11/02/18 11:17 Lasix PO 40 mg QDAY [facility] Administration Hydralazine HCl 10 mg 10/07/18 05:07 10/14/18 08:35 Apresoline IV 10 mg Q4H PRN Administration Blood Pressure Hydralazine HCl 25 mg 10/31/18 14:00 11/02/18 05:58 Apresoline PO 25 mg Q8HR [facility] Administration Hydrophilic Ointment 1 applic 10/07/18 02:40 Vaseline Lip Therapy TP Q2HR PRN Dry Lips Insulin Glargine 8 units 11/02/18 12:18 Lantus SUB-Q DAILY [facility] Insulin Human Lispro 0 unit 10/31/18 16:30 11/02/18 08:33 Humalog SUB-Q Not Given [facility] Protocol Insulin Human Lispro 3 unit 10/31/18 16:30 11/02/18 08:41 Humalog SUB-Q 3 unit AC [facility] Administration Insulin Human Regular 0 units 10/31/18 22:00 11/01/18 22:30 Humulin R SUB-Q 2 units QHS [facility] Administration Protocol Isosorbide Mononitrate 30 mg 10/31/18 11:30 11/02/18 11:16 Imdur PO 30 mg QDAY [facility] Administration Lansoprazole 30 mg 10/16/18 22:00 11/02/18 11:17 Prevacid Solutab FEEDTUBE 30 mg BID [facility] Administration Metoclopramide HCl 10 mg 10/11/18 13:00 10/12/18 19:32 Reglan IV 10 mg Q6HR PRN Administration Nausea And Vomiting Metoprolol Tartrate 50 mg 10/31/18 22:00 11/02/18 11:16 Lopressor PO 50 mg BID [facility] Administration Multi-Ingred Cream/Lotion/Oil/Oint 1 applic 10/07/18 02:40 Artificial Tears Ophth Oint OU Q4HR PRN Dry Eye(s) Ondansetron HCl 4 mg 10/07/18 04:59 Zofran IV Q8H PRN N/V unrelieved by Kojo Quetiapine Fumarate 100 mg 10/09/18 22:00 11/01/18 22:28 Seroquel PO 100 mg QHS [facility] Administration Simple Syrup 15 ml 10/08/18 10:00 Simple Syrup FEEDTUBE PRN PRN Hypoglycemia Simple Syrup 30 ml 10/08/18 10:00 10/09/18 01:09 Simple Syrup FEEDTUBE 30 ml PRN PRN Administration Hypoglycemia Sodium Bicarbonate 325 mg 10/08/18 10:00 Sodium Bicarbonate FEEDTUBE PRN PRN For Clogged Feeding Tube Sodium Chloride 10 ml 10/07/18 10:00 11/02/18 11:17 Sodium Chloride Flush Syringe 10 Ml IV 10 ml BID [facility] Administration Sodium Chloride 10 ml 10/07/18 04:59 10/18/18 07:15 Sodium Chloride Flush Syringe 10 Ml IV 10 ml PRN PRN Administration LINE FLUSH Warfarin Sodium 15 mg 10/30/18 17:00 11/01/18 16:54 Coumadin PO 15 mg DAILY@1700 [facility] Administration Nutrition/Malnutrition Assess - Dietary Evaluation Nutrition/Malnutrition Findings: Nutrition Notes Start: 10/07/18 12:17 Freq: Status: Active Protocol: Document 10/25/18 17:02 (Rec: 10/25/18 17:05 [id number]) Nutrition Notes Initial or Follow up Reassessment Current Diagnosis CKD (stage V CKD),Diabetes, Hypertension,Heart Failure Other Pertinent Diagnosis DKA, AMS Current Diet Consistent CHO Labs/Tests Reviewed Pertinent Medications Lasix Height 5 ft 2 in Weight 53 kg [place] Body Weight (kg) 50.00 BMI 21.3 Subjective/Other Information Pt stated that her appetite is good and that she eats all of her meals. Noted lunch at bedside w/100% eaten. Percent of energy/protein needs met: 100%/100% Burn Absent Trauma Absent #1 Nutrition Diagnosis Inadequate oral intake As Evidenced by Signs and Symptoms pt meeting 100% of calorie and protein needs Diagnosis Progress(for reassessment Resolved documentation) Is patient on ventilator? No Is Patient Ambulatory and/or Out of Bed No REE-([facility]-confined to bed) [phone] Calculation Used for Recommendations [facility] Additional Notes Pro needs 0.8-1g/k-55g/ day Fluid needs 1ml/kcal Nutrition Intervention Change Diet Order: Continue current Goal #1 Continue to meet at least 75% of calorie and protein needs via PO intakes Anticipated Discharge Needs: Consistent CHO diet Revisit per MD consult or patient Sign Off request:
[2018-11-02] MEDS: LANTUS SUB-Q SCH ×2 (13:40→16:29)
--- NOTE | 2018-11-02 16:33 | Progress Note ---
Assessment and Plan Patient awake and resting on room air at this time. O2 saturation 100% . Patient says feeling better and breathing better. No acute respiratory distress. Chest xray and ABGs on room air pending. - Patient Problems (1) Acute respiratory failure with hypoxia Current Visit: Yes Status: Acute Plan to address problem: O2 2 litres via nasal canula PRN for shortness of breath. Albuterol/atrovent aerosol treatments q 6 hours. (2) Acute on chronic renal failure Current Visit: Yes Status: Acute Qualifiers: Acute renal failure type: with acute tubular necrosis Chronic kidney disease stage: stage 2 (mild) Qualified Code(s): N17.0 - Acute kidney failure with tubular necrosis; N18.2 - Chronic kidney disease, stage 2 (mild) Plan to address problem: Management as per nephrology. (3) Altered mental status Current Visit: Yes Status: Resolved Plan to address problem: Appears improved. Management as per primary care. (4) Heart failure with reduced ejection fraction Current Visit: Yes Status: Acute Qualifiers: Heart failure chronicity: acute on chronic Qualified Code(s): I50.23 - Acute on chronic systolic (congestive) heart failure Plan to address problem: Management as per cardiology. (5) Diabetes Current Visit: Yes Status: Chronic Plan to address problem: Management as per primary care. (6) H/O mitral valve replacement with mechanical valve Current Visit: Yes Status: Chronic Plan to address problem: Management as per cardiology. Subjective Date of service: 11/02/18 Principal diagnosis: Ac hypoxemic resp failure; Seizures (?hypoglycemic); Ac encephalopathy(T/M) Interval history: Patient awake and resting on room air at this time. O2 saturation 100% . Patient says feeling better and breathing better. No acute respiratory distress. Chest xray and ABGs on room air pending. Objective Vital Signs - 12hr 11/02/18 11/02/18 11/02/18 05:56 05:58 11:16 Temperature 98.0 F Pulse Rate 81 81 Respiratory 18 Rate Blood Pressure 124/78 124/78 115/70 O2 Sat by Pulse 96 Oximetry 11/02/18 11/02/18 11/02/18 11:45 12:19 14:38 Temperature 97.6 F Pulse Rate 82 82 Respiratory 16 16 Rate Blood Pressure 123/76 123/76 O2 Sat by Pulse 100 Oximetry Constitutional: no acute distress, alert Eyes: non-icteric ENT: oropharynx moist Neck: supple, no lymphadenopathy, no JVD Effort: normal, mildly labored Ascultation: Bilateral: diminished breath sounds (bases), rales Percussion: Right: dull (base), Bilateral: not dull Cardiovascular: regular rate and rhythm, other (+ metalic valve click) Gastrointestinal: normoactive bowel sounds, soft, non-tender, non-distended, other (No HSM) Integumentary: normal Extremities: no cyanosis, no edema, pulses normal, no ischemia or petechiae Neurologic: normal mental status, non-focal exam (grossly), pupils equal and round, CN II-XII normal, motor strength normal and Psychiatric: mood appropriate, affect normal CBC and BMP: 10/30/18 05:04 10/29/18 15:19 ABG, PT/INR, D-dimer: ABG POC ABG pH 7.458 (7.35-7.45) H 10/19/18 19:56 POC ABG pCO2 37.9 (35-45) 10/19/18 19:56 POC ABG pO2 63 (80-105) L 10/19/18 19:56 POC ABG HCO3 26.8 (22-26 mml/L) 10/19/18 19:56 POC ABG Total CO2 28 (23-27mmol/L) 10/19/18 19:56 POC ABG O2 Sat 93 10/19/18 19:56 PT/INR, D-dimer PT 24.3 Sec. (12.2-14.9) H 11/02/18 06:00 INR 2.03 (0.87-1.13) H 11/02/18 06:00 Abnormal lab findings: Abnormal Labs 10/07/18 10/07/18 10/07/18 02:20 02:43 02:43 WBC RBC Hgb Hct MCH 25 L RDW 21.5 H Plt Count Lymph % (Auto) Rains % (Auto) Lymph # 0.9 L Rains # Eos # Baso # Seg Neutrophils % 78.4 H Seg Neuts % (Manual) Lymphocytes % (Manual) Seg Neutrophils # Seg Neutrophils # Man Lymphocytes # (Manual) PT INR APTT Heparin Anti-Xa Level POC ABG pH POC ABG pCO2 POC ABG pO2 Sodium Potassium Chloride 108.0 H Carbon Dioxide 21 L BUN Creatinine 1.5 H Glucose 115 H POC Glucose 136 H Hemoglobin A1c Lactic Acid Calcium Phosphorus AST 51 H Alkaline Phosphatase 257 H NT-Pro-B Natriuret Pep Total Protein Albumin Urine WBC (Auto) Crossmatch 10/07/18 10/07/18 10/07/18 02:43 04:32 05:12 WBC RBC Hgb Hct MCH RDW Plt Count Lymph % (Auto) Rains % (Auto) Lymph # Rains # Eos # Baso # Seg Neutrophils % Seg Neuts % (Manual) Lymphocytes % (Manual) Seg Neutrophils # Seg Neutrophils # Man Lymphocytes # (Manual) PT 25.4 H INR 2.14 H APTT Heparin Anti-Xa Level POC ABG pH POC ABG pCO2 33.6 L POC ABG pO2 69 L Sodium Potassium Chloride Carbon Dioxide BUN Creatinine Glucose POC Glucose Hemoglobin A1c Lactic Acid 2.40 H* Calcium Phosphorus AST Alkaline Phosphatase NT-Pro-B Natriuret Pep Total Protein Albumin Urine WBC (Auto) Crossmatch 10/07/18 10/07/18 10/07/18 06:28 18:39 20:26 WBC RBC Hgb Hct MCH RDW Plt Count Lymph % (Auto) Rains % (Auto) Lymph # Rains # Eos # Baso # Seg Neutrophils % Seg Neuts % (Manual) Lymphocytes % (Manual) Seg Neutrophils # Seg Neutrophils # Man Lymphocytes # (Manual) PT INR APTT Heparin Anti-Xa Level POC ABG pH POC ABG pCO2 POC ABG pO2 Sodium Potassium Chloride Carbon Dioxide BUN Creatinine Glucose POC Glucose 164 H 440 H > 500 H Hemoglobin A1c Lactic Acid Calcium Phosphorus AST Alkaline Phosphatase NT-Pro-B Natriuret Pep Total Protein Albumin Urine WBC (Auto) Crossmatch 10/07/18 10/07/18 10/07/18 20:28 21:53 22:08 WBC RBC Hgb Hct MCH RDW Plt Count Lymph % (Auto) Rains % (Auto) Lymph # Rains # Eos # Baso # Seg Neutrophils % Seg Neuts % (Manual) Lymphocytes % (Manual) Seg Neutrophils # Seg Neutrophils # Man Lymphocytes # (Manual) PT INR APTT Heparin Anti-Xa Level POC ABG pH POC ABG pCO2 POC ABG pO2 Sodium 136 L D Potassium 6.4 H* D Chloride Carbon Dioxide 10 L D BUN 30 H Creatinine 2.0 H Glucose 544 H* POC Glucose 483 H > 500 H Hemoglobin A1c Lactic Acid Calcium 7.0 L D Phosphorus AST Alkaline Phosphatase NT-Pro-B Natriuret Pep Total Protein Albumin Urine WBC (Auto) Crossmatch 10/07/18 10/07/18 10/07/18 22:08 22:08 22:56 WBC RBC Hgb Hct MCH RDW Plt Count Lymph % (Auto) Rains % (Auto) Lymph # Rains # Eos # Baso # Seg Neutrophils % Seg Neuts % (Manual) Lymphocytes % (Manual) Seg Neutrophils # Seg Neutrophils # Man Lymphocytes # (Manual) PT INR APTT Heparin Anti-Xa Level POC ABG pH POC ABG pCO2 POC ABG pO2 Sodium Potassium Chloride Carbon Dioxide BUN Creatinine Glucose POC Glucose 462 H Hemoglobin A1c 10.2 H Lactic Acid Calcium Phosphorus 7.40 H AST Alkaline Phosphatase NT-Pro-B Natriuret Pep Total Protein Albumin Urine WBC (Auto) Crossmatch 10/07/18 10/08/18 10/08/18 23:39 00:58 02:09 WBC RBC Hgb Hct MCH RDW Plt Count Lymph % (Auto) Rains % (Auto) Lymph # Rains # Eos # Baso # Seg Neutrophils % Seg Neuts % (Manual) Lymphocytes % (Manual) Seg Neutrophils # Seg Neutrophils # Man Lymphocytes # (Manual) PT INR APTT Heparin Anti-Xa Level POC ABG pH POC ABG pCO2 POC ABG pO2 Sodium Potassium Chloride Carbon Dioxide BUN Creatinine Glucose POC Glucose 396 H 375 H 285 H Hemoglobin A1c Lactic Acid Calcium Phosphorus AST Alkaline Phosphatase NT-Pro-B Natriuret Pep Total Protein Albumin Urine WBC (Auto) Crossmatch 10/08/18 10/08/18 10/08/18 03:10 03:33 04:05 WBC RBC Hgb Hct MCH RDW Plt Count Lymph % (Auto) Rains % (Auto) Lymph # Rains # Eos # Baso # Seg Neutrophils % Seg Neuts % (Manual) Lymphocytes % (Manual) Seg Neutrophils # Seg Neutrophils # Man Lymphocytes # (Manual) PT INR APTT Heparin Anti-Xa Level POC ABG pH 7.243 L POC ABG pCO2 33.8 L POC ABG pO2 126 H Sodium Potassium 5.3 H Chloride 110.7 H Carbon Dioxide 14 L BUN 33 H Creatinine 2.2 H Glucose 193 H POC Glucose 251 H Hemoglobin A1c Lactic Acid Calcium 7.0 L Phosphorus AST Alkaline Phosphatase 155 H NT-Pro-B Natriuret Pep Total Protein 5.2 L D Albumin 2.6 L Urine WBC (Auto) Crossmatch 10/08/18 10/08/18 10/08/18 04:05 04:05 04:09 WBC 11.8 H RBC 3.32 L Hgb 8.3 L Hct 27.5 L D MCH 25 L RDW 22.0 H Plt Count Lymph % (Auto) 6.8 L Rains % (Auto) 12.0 H Lymph # 0.8 L Rains # 1.4 H Eos # Baso # Seg Neutrophils % 80.6 H Seg Neuts % (Manual) Lymphocytes % (Manual) Seg Neutrophils # 9.5 H Seg Neutrophils # Man Lymphocytes # (Manual) PT INR APTT Heparin Anti-Xa Level POC ABG pH POC ABG pCO2 POC ABG pO2 Sodium Potassium Chloride Carbon Dioxide BUN Creatinine Glucose POC Glucose 175 H Hemoglobin A1c Lactic Acid 3.70 H* Calcium Phosphorus AST Alkaline Phosphatase NT-Pro-B Natriuret Pep Total Protein Albumin Urine WBC (Auto) Crossmatch 10/08/18 10/08/18 10/08/18 05:07 06:05 07:14 WBC RBC Hgb Hct MCH RDW Plt Count Lymph % (Auto) Rains % (Auto) Lymph # Rains # Eos # Baso # Seg Neutrophils % Seg Neuts % (Manual) Lymphocytes % (Manual) Seg Neutrophils # Seg Neutrophils # Man Lymphocytes # (Manual) PT INR APTT Heparin Anti-Xa Level POC ABG pH POC ABG pCO2 POC ABG pO2 Sodium Potassium Chloride Carbon Dioxide BUN Creatinine Glucose POC Glucose 125 H 122 H 147 H Hemoglobin A1c Lactic Acid Calcium Phosphorus AST Alkaline Phosphatase NT-Pro-B Natriuret Pep Total Protein Albumin Urine WBC (Auto) Crossmatch 10/08/18 10/08/18 10/08/18 07:22 08:09 08:47 WBC RBC Hgb Hct MCH RDW Plt Count Lymph % (Auto) Rains % (Auto) Lymph # Rains # Eos # Baso # Seg Neutrophils % Seg Neuts % (Manual) Lymphocytes % (Manual) Seg Neutrophils # Seg Neutrophils # Man Lymphocytes # (Manual) PT INR APTT Heparin Anti-Xa Level POC ABG pH POC ABG pCO2 POC ABG pO2 Sodium Potassium 5.2 H Chloride 112.4 H Carbon Dioxide 17 L BUN 32 H Creatinine 2.1 H Glucose 148 H POC Glucose 134 H 148 H Hemoglobin A1c Lactic Acid Calcium 6.6 L Phosphorus AST Alkaline Phosphatase NT-Pro-B Natriuret Pep Total Protein Albumin Urine WBC (Auto) Crossmatch 10/08/18 10/08/18 10/08/18 10:21 13:29 14:21 WBC RBC Hgb Hct MCH RDW Plt Count Lymph % (Auto) Rains % (Auto) Lymph # Rains # Eos # Baso # Seg Neutrophils % Seg Neuts % (Manual) Lymphocytes % (Manual) Seg Neutrophils # Seg Neutrophils # Man Lymphocytes # (Manual) PT INR APTT Heparin Anti-Xa Level POC ABG pH POC ABG pCO2 POC ABG pO2 Sodium Potassium Chloride Carbon Dioxide BUN Creatinine Glucose POC Glucose 115 H 109 H 118 H Hemoglobin A1c Lactic Acid Calcium Phosphorus AST Alkaline Phosphatase NT-Pro-B Natriuret Pep Total Protein Albumin Urine WBC (Auto) Crossmatch 10/08/18 10/08/18 10/08/18 15:27 17:00 17:00 WBC 11.3 H RBC 3.21 L Hgb 7.9 L Hct 25.7 L MCH 25 L RDW 21.8 H Plt Count Lymph % (Auto) 8.5 L Rains % (Auto) 7.7 H Lymph # 1.0 L Rains # 0.9 H Eos # Baso # Seg Neutrophils % 82.8 H Seg Neuts % (Manual) Lymphocytes % (Manual) Seg Neutrophils # 9.3 H Seg Neutrophils # Man Lymphocytes # (Manual) PT INR APTT Heparin Anti-Xa Level POC ABG pH POC ABG pCO2 POC ABG pO2 Sodium Potassium Chloride Carbon Dioxide BUN Creatinine Glucose POC Glucose 129 H Hemoglobin A1c Lactic Acid Calcium Phosphorus AST Alkaline Phosphatase NT-Pro-B Natriuret Pep 3097 H Total Protein Albumin Urine WBC (Auto) Crossmatch 10/08/18 10/08/18 10/08/18 17:07 17:12 18:22 WBC RBC Hgb Hct MCH RDW Plt Count Lymph % (Auto) Rains % (Auto) Lymph # Rains # Eos # Baso # Seg Neutrophils % Seg Neuts % (Manual) Lymphocytes % (Manual) Seg Neutrophils # Seg Neutrophils # Man Lymphocytes # (Manual) PT INR APTT Heparin Anti-Xa Level POC ABG pH 7.337 L POC ABG pCO2 32.0 L POC ABG pO2 130 H Sodium Potassium Chloride 115.5 H Carbon Dioxide 17 L BUN 30 H Creatinine 1.9 H Glucose 103 H POC Glucose 119 H Hemoglobin A1c Lactic Acid Calcium 6.9 L Phosphorus AST Alkaline Phosphatase NT-Pro-B Natriuret Pep Total Protein Albumin Urine WBC (Auto) Crossmatch 10/08/18 10/08/18 10/09/18 20:09 20:57 01:10 WBC RBC Hgb Hct MCH RDW Plt Count Lymph % (Auto) Rains % (Auto) Lymph # Rains # Eos # Baso # Seg Neutrophils % Seg Neuts % (Manual) Lymphocytes % (Manual) Seg Neutrophils # Seg Neutrophils # Man Lymphocytes # (Manual) PT INR APTT Heparin Anti-Xa Level POC ABG pH POC ABG pCO2 POC ABG pO2 Sodium Potassium Chloride 114.3 H 113.7 H Carbon Dioxide 15 L 14 L BUN 29 H 29 H Creatinine 2.1 H 2.0 H Glucose 132 H 39 L* POC Glucose 150 H Hemoglobin A1c Lactic Acid Calcium 6.7 L 6.9 L Phosphorus AST Alkaline Phosphatase NT-Pro-B Natriuret Pep Total Protein Albumin Urine WBC (Auto) Crossmatch 10/09/18 10/09/18 10/09/18 01:10 01:43 03:20 WBC RBC Hgb Hct MCH RDW Plt Count Lymph % (Auto) Rains % (Auto) Lymph # Rains # Eos # Baso # Seg Neutrophils % Seg Neuts % (Manual) Lymphocytes % (Manual) Seg Neutrophils # Seg Neutrophils # Man Lymphocytes # (Manual) PT INR APTT Heparin Anti-Xa Level POC ABG pH POC ABG pCO2 POC ABG pO2 Sodium Potassium Chloride Carbon Dioxide BUN Creatinine Glucose POC Glucose < 40 L < 40 L Hemoglobin A1c Lactic Acid Calcium Phosphorus AST Alkaline Phosphatase NT-Pro-B Natriuret Pep 2865 H Total Protein Albumin Urine WBC (Auto) Crossmatch 10/09/18 10/09/18 10/09/18 04:23 05:03 05:25 WBC RBC Hgb Hct MCH RDW Plt Count Lymph % (Auto) Rains % (Auto) Lymph # Rains # Eos # Baso # Seg Neutrophils % Seg Neuts % (Manual) Lymphocytes % (Manual) Seg Neutrophils # Seg Neutrophils # Man Lymphocytes # (Manual) PT INR APTT Heparin Anti-Xa Level POC ABG pH POC ABG pCO2 30.6 L 32.3 L POC ABG pO2 118 H Sodium Potassium Chloride Carbon Dioxide BUN Creatinine Glucose POC Glucose 148 H Hemoglobin A1c Lactic Acid Calcium Phosphorus AST Alkaline Phosphatase NT-Pro-B Natriuret Pep Total Protein Albumin Urine WBC (Auto) Crossmatch 10/09/18 10/09/18 10/09/18 06:00 08:34 09:58 WBC RBC Hgb Hct MCH RDW Plt Count Lymph % (Auto) Rains % (Auto) Lymph # Rains # Eos # Baso # Seg Neutrophils % Seg Neuts % (Manual) Lymphocytes % (Manual) Seg Neutrophils # Seg Neutrophils # Man Lymphocytes # (Manual) PT INR APTT Heparin Anti-Xa Level POC ABG pH POC ABG pCO2 POC ABG pO2 Sodium Potassium Chloride Carbon Dioxide BUN Creatinine Glucose POC Glucose 173 H 196 H 183 H Hemoglobin A1c Lactic Acid Calcium Phosphorus AST Alkaline Phosphatase NT-Pro-B Natriuret Pep Total Protein Albumin Urine WBC (Auto) Crossmatch 10/09/18 10/09/18 10/09/18 12:25 12:46 18:16 WBC RBC Hgb Hct MCH RDW Plt Count Lymph % (Auto) Rains % (Auto) Lymph # Rains # Eos # Baso # Seg Neutrophils % Seg Neuts % (Manual) Lymphocytes % (Manual) Seg Neutrophils # Seg Neutrophils # Man Lymphocytes # (Manual) PT INR APTT Heparin Anti-Xa Level POC ABG pH POC ABG pCO2 POC ABG pO2 Sodium Potassium Chloride 110.3 H Carbon Dioxide 16 L BUN 24 H Creatinine 1.8 H Glucose 207 H POC Glucose 208 H 177 H Hemoglobin A1c Lactic Acid Calcium 6.9 L Phosphorus AST Alkaline Phosphatase NT-Pro-B Natriuret Pep Total Protein Albumin Urine WBC (Auto) Crossmatch 10/09/18 10/10/18 10/10/18 21:11 00:11 05:41 WBC RBC Hgb Hct MCH RDW Plt Count Lymph % (Auto) Rains % (Auto) Lymph # Rains # Eos # Baso # Seg Neutrophils % Seg Neuts % (Manual) Lymphocytes % (Manual) Seg Neutrophils # Seg Neutrophils # Man Lymphocytes # (Manual) PT INR APTT Heparin Anti-Xa Level POC ABG pH POC ABG pCO2 POC ABG pO2 Sodium Potassium Chloride Carbon Dioxide BUN Creatinine Glucose POC Glucose 124 H 156 H 42 L Hemoglobin A1c Lactic Acid Calcium Phosphorus AST Alkaline Phosphatase NT-Pro-B Natriuret Pep Total Protein Albumin Urine WBC (Auto) Crossmatch 10/10/18 10/10/18 10/10/18 05:45 07:28 12:07 WBC RBC Hgb Hct MCH RDW Plt Count Lymph % (Auto) Rains % (Auto) Lymph # Rains # Eos # Baso # Seg Neutrophils % Seg Neuts % (Manual) Lymphocytes % (Manual) Seg Neutrophils # Seg Neutrophils # Man Lymphocytes # (Manual) PT INR APTT Heparin Anti-Xa Level POC ABG pH POC ABG pCO2 POC ABG pO2 Sodium 146 H D Potassium Chloride 111.2 H Carbon Dioxide BUN 21 H Creatinine 1.8 H Glucose 44 L POC Glucose 114 H 49 L Hemoglobin A1c Lactic Acid Calcium 7.4 L Phosphorus AST Alkaline Phosphatase NT-Pro-B Natriuret Pep Total Protein Albumin Urine WBC (Auto) Crossmatch 10/10/18 10/10/18 10/10/18 12:37 18:02 20:47 WBC RBC Hgb Hct MCH RDW Plt Count Lymph % (Auto) Rains % (Auto) Lymph # Rains # Eos # Baso # Seg Neutrophils % Seg Neuts % (Manual) Lymphocytes % (Manual) Seg Neutrophils # Seg Neutrophils # Man Lymphocytes # (Manual) PT INR APTT Heparin Anti-Xa Level POC ABG pH POC ABG pCO2 POC ABG pO2 Sodium Potassium Chloride Carbon Dioxide BUN Creatinine Glucose POC Glucose 142 H 49 L 162 H Hemoglobin A1c Lactic Acid Calcium Phosphorus AST Alkaline Phosphatase NT-Pro-B Natriuret Pep Total Protein Albumin Urine WBC (Auto) Crossmatch 10/10/18 10/10/18 10/10/18 21:45 22:19 23:50 WBC RBC Hgb Hct MCH RDW Plt Count Lymph % (Auto) Rains % (Auto) Lymph # Rains # Eos # Baso # Seg Neutrophils % Seg Neuts % (Manual) Lymphocytes % (Manual) Seg Neutrophils # Seg Neutrophils # Man Lymphocytes # (Manual) PT INR APTT Heparin Anti-Xa Level POC ABG pH 7.334 L POC ABG pCO2 47.0 H POC ABG pO2 53 L 79 L Sodium Potassium Chloride Carbon Dioxide BUN Creatinine Glucose POC Glucose 185 H Hemoglobin A1c Lactic Acid Calcium Phosphorus AST Alkaline Phosphatase NT-Pro-B Natriuret Pep Total Protein Albumin Urine WBC (Auto) Crossmatch 10/11/18 10/11/18 10/11/18 05:00 06:41 07:17 WBC RBC Hgb Hct MCH RDW Plt Count Lymph % (Auto) Rains % (Auto) Lymph # Rains # Eos # Baso # Seg Neutrophils % Seg Neuts % (Manual) Lymphocytes % (Manual) Seg Neutrophils # Seg Neutrophils # Man Lymphocytes # (Manual) PT INR APTT Heparin Anti-Xa Level POC ABG pH POC ABG pCO2 POC ABG pO2 Sodium Potassium Chloride Carbon Dioxide BUN Creatinine 1.7 H Glucose 43 L POC Glucose 48 L 129 H Hemoglobin A1c Lactic Acid Calcium 7.7 L Phosphorus AST Alkaline Phosphatase NT-Pro-B Natriuret Pep Total Protein Albumin Urine WBC (Auto) Crossmatch 10/11/18 10/11/18 10/11/18 11:14 13:32 14:25 WBC RBC 3.32 L Hgb 8.2 L Hct 26.4 L MCH 25 L RDW 21.6 H Plt Count Lymph % (Auto) Rains % (Auto) Lymph # Rains # Eos # Baso # Seg Neutrophils % Seg Neuts % (Manual) Lymphocytes % (Manual) Seg Neutrophils # Seg Neutrophils # Man Lymphocytes # (Manual) PT 21.7 H INR 1.76 H APTT 50.5 H Heparin Anti-Xa Level POC ABG pH POC ABG pCO2 POC ABG pO2 Sodium Potassium Chloride Carbon Dioxide BUN Creatinine Glucose POC Glucose 138 H Hemoglobin A1c Lactic Acid Calcium Phosphorus AST Alkaline Phosphatase NT-Pro-B Natriuret Pep Total Protein Albumin Urine WBC (Auto) Crossmatch 10/11/18 10/11/18 10/11/18 14:25 15:41 17:31 WBC RBC Hgb Hct MCH RDW Plt Count Lymph % (Auto) Rains % (Auto) Lymph # Rains # Eos # Baso # Seg Neutrophils % Seg Neuts % (Manual) Lymphocytes % (Manual) Seg Neutrophils # Seg Neutrophils # Man Lymphocytes # (Manual) PT 20.6 H INR 1.65 H APTT 54.9 H Heparin Anti-Xa Level POC ABG pH POC ABG pCO2 POC ABG pO2 53 L Sodium Potassium Chloride Carbon Dioxide BUN Creatinine Glucose POC Glucose 133 H Hemoglobin A1c Lactic Acid Calcium Phosphorus AST Alkaline Phosphatase NT-Pro-B Natriuret Pep Total Protein Albumin Urine WBC (Auto) Crossmatch 10/12/18 10/12/18 10/12/18 00:30 03:56 04:25 WBC RBC Hgb Hct MCH RDW Plt Count Lymph % (Auto) Rains % (Auto) Lymph # Rains # Eos # Baso # Seg Neutrophils % Seg Neuts % (Manual) Lymphocytes % (Manual) Seg Neutrophils # Seg Neutrophils # Man Lymphocytes # (Manual) PT INR APTT Heparin Anti-Xa Level POC ABG pH 7.514 H POC ABG pCO2 31.2 L POC ABG pO2 Sodium Potassium Chloride Carbon Dioxide BUN Creatinine 1.6 H Glucose 287 H POC Glucose 353 H Hemoglobin A1c Lactic Acid Calcium 8.0 L Phosphorus AST Alkaline Phosphatase NT-Pro-B Natriuret Pep Total Protein Albumin Urine WBC (Auto) Crossmatch 10/12/18 10/12/18 10/12/18 04:49 12:13 17:53 WBC RBC Hgb Hct MCH RDW Plt Count Lymph % (Auto) Rains % (Auto) Lymph # Rains # Eos # Baso # Seg Neutrophils % Seg Neuts % (Manual) Lymphocytes % (Manual) Seg Neutrophils # Seg Neutrophils # Man Lymphocytes # (Manual) PT INR APTT Heparin Anti-Xa Level POC ABG pH POC ABG pCO2 POC ABG pO2 Sodium Potassium Chloride Carbon Dioxide BUN Creatinine Glucose POC Glucose 297 H 290 H 211 H Hemoglobin A1c Lactic Acid Calcium Phosphorus AST Alkaline Phosphatase NT-Pro-B Natriuret Pep Total Protein Albumin Urine WBC (Auto) Crossmatch 10/12/18 10/12/18 10/13/18 18:57 21:35 04:50 WBC 11.8 H RBC 3.08 L Hgb 7.4 L Hct 24.2 L MCH 24 L RDW 21.5 H Plt Count Lymph % (Auto) Rains % (Auto) Lymph # Rains # Eos # Baso # Seg Neutrophils % Seg Neuts % (Manual) Lymphocytes % (Manual) Seg Neutrophils # Seg Neutrophils # Man Lymphocytes # (Manual) PT INR APTT Heparin Anti-Xa Level 1.74 H POC ABG pH 7.497 H POC ABG pCO2 33.2 L POC ABG pO2 71 L Sodium Potassium Chloride Carbon Dioxide BUN Creatinine Glucose POC Glucose Hemoglobin A1c Lactic Acid Calcium Phosphorus AST Alkaline Phosphatase NT-Pro-B Natriuret Pep Total Protein Albumin Urine WBC (Auto) Crossmatch 10/13/18 10/13/18 10/13/18 05:25 05:25 05:37 WBC 12.1 H RBC 3.02 L Hgb 7.4 L Hct 23.7 L MCH 25 L RDW 21.0 H Plt Count Lymph % (Auto) 9.6 L Rains % (Auto) 10.0 H Lymph # Rains # 1.2 H Eos # Baso # Seg Neutrophils % 76.2 H Seg Neuts % (Manual) Lymphocytes % (Manual) Seg Neutrophils # 9.2 H Seg Neutrophils # Man Lymphocytes # (Manual) PT INR APTT Heparin Anti-Xa Level POC ABG pH POC ABG pCO2 POC ABG pO2 Sodium Potassium Chloride Carbon Dioxide BUN Creatinine 1.6 H Glucose 175 H POC Glucose 165 H Hemoglobin A1c Lactic Acid Calcium 8.3 L Phosphorus AST Alkaline Phosphatase NT-Pro-B Natriuret Pep Total Protein Albumin Urine WBC (Auto) Crossmatch 10/13/18 10/13/18 10/13/18 06:45 11:12 17:19 WBC RBC Hgb Hct MCH RDW Plt Count Lymph % (Auto) Rains % (Auto) Lymph # Rains # Eos # Baso # Seg Neutrophils % Seg Neuts % (Manual) Lymphocytes % (Manual) Seg Neutrophils # Seg Neutrophils # Man Lymphocytes # (Manual) PT 17.4 H INR 1.34 H APTT Heparin Anti-Xa Level POC ABG pH POC ABG pCO2 POC ABG pO2 Sodium Potassium Chloride Carbon Dioxide BUN Creatinine Glucose POC Glucose 223 H 129 H Hemoglobin A1c Lactic Acid Calcium Phosphorus AST Alkaline Phosphatase NT-Pro-B Natriuret Pep Total Protein Albumin Urine WBC (Auto) Crossmatch 10/13/18 10/14/18 10/14/18 23:39 05:01 06:14 WBC RBC Hgb Hct MCH RDW Plt Count Lymph % (Auto) Rains % (Auto) Lymph # Rains # Eos # Baso # Seg Neutrophils % Seg Neuts % (Manual) Lymphocytes % (Manual) Seg Neutrophils # Seg Neutrophils # Man Lymphocytes # (Manual) PT INR APTT Heparin Anti-Xa Level POC ABG pH POC ABG pCO2 POC ABG pO2 Sodium Potassium Chloride Carbon Dioxide BUN Creatinine 1.5 H Glucose 264 H POC Glucose 171 H 226 H Hemoglobin A1c Lactic Acid Calcium 8.0 L Phosphorus AST Alkaline Phosphatase NT-Pro-B Natriuret Pep Total Protein Albumin Urine WBC (Auto) Crossmatch 10/14/18 10/14/18 10/14/18 06:14 12:24 19:33 WBC RBC Hgb Hct MCH RDW Plt Count Lymph % (Auto) Rains % (Auto) Lymph # Rains # Eos # Baso # Seg Neutrophils % Seg Neuts % (Manual) Lymphocytes % (Manual) Seg Neutrophils # Seg Neutrophils # Man Lymphocytes # (Manual) PT 22.1 H INR 1.80 H APTT Heparin Anti-Xa Level POC ABG pH POC ABG pCO2 POC ABG pO2 Sodium Potassium Chloride Carbon Dioxide BUN Creatinine Glucose POC Glucose 403 H 164 H Hemoglobin A1c Lactic Acid Calcium Phosphorus AST Alkaline Phosphatase NT-Pro-B Natriuret Pep Total Protein Albumin Urine WBC (Auto) Crossmatch 10/15/18 10/15/18 10/15/18 00:29 06:03 07:00 WBC RBC Hgb Hct MCH RDW Plt Count Lymph % (Auto) Rains % (Auto) Lymph # Rains # Eos # Baso # Seg Neutrophils % Seg Neuts % (Manual) Lymphocytes % (Manual) Seg Neutrophils # Seg Neutrophils # Man Lymphocytes # (Manual) PT INR APTT Heparin Anti-Xa Level POC ABG pH POC ABG pCO2 POC ABG pO2 Sodium Potassium Chloride Carbon Dioxide BUN 20 H Creatinine 1.7 H Glucose 308 H POC Glucose 237 H 282 H Hemoglobin A1c Lactic Acid Calcium 7.6 L Phosphorus AST Alkaline Phosphatase NT-Pro-B Natriuret Pep Total Protein Albumin Urine WBC (Auto) Crossmatch 10/15/18 10/15/18 10/15/18 07:00 08:03 10:27 WBC RBC Hgb 5.8 L* Hct 18.5 L* MCH RDW Plt Count Lymph % (Auto) Rains % (Auto) Lymph # Rains # Eos # Baso # Seg Neutrophils % Seg Neuts % (Manual) Lymphocytes % (Manual) Seg Neutrophils # Seg Neutrophils # Man Lymphocytes # (Manual) PT 46.1 H INR 4.52 H APTT Heparin Anti-Xa Level 0.25 L POC ABG pH POC ABG pCO2 POC ABG pO2 Sodium Potassium Chloride Carbon Dioxide BUN Creatinine Glucose POC Glucose Hemoglobin A1c Lactic Acid Calcium Phosphorus AST Alkaline Phosphatase NT-Pro-B Natriuret Pep Total Protein Albumin Urine WBC (Auto) Crossmatch See Detail 10/15/18 10/15/18 10/16/18 14:03 15:30 10:18 WBC RBC Hgb Hct MCH RDW Plt Count Lymph % (Auto) Rains % (Auto) Lymph # Rains # Eos # Baso # Seg Neutrophils % Seg Neuts % (Manual) Lymphocytes % (Manual) Seg Neutrophils # Seg Neutrophils # Man Lymphocytes # (Manual) PT 53.8 H INR 5.48 H* APTT Heparin Anti-Xa Level POC ABG pH POC ABG pCO2 POC ABG pO2 Sodium Potassium Chloride Carbon Dioxide BUN Creatinine Glucose POC Glucose 336 H 259 H Hemoglobin A1c Lactic Acid Calcium Phosphorus AST Alkaline Phosphatase NT-Pro-B Natriuret Pep Total Protein Albumin Urine WBC (Auto) Crossmatch 10/16/18 10/16/18 10/16/18 10:18 10:18 13:03 WBC 14.8 H RBC 3.03 L Hgb 8.2 L Hct 24.9 L D MCH 27 L RDW 19.2 H Plt Count Lymph % (Auto) 5.7 L Rains % (Auto) Lymph # 0.8 L Rains # 1.1 H Eos # Baso # 0.2 H Seg Neutrophils % 84.3 H Seg Neuts % (Manual) Lymphocytes % (Manual) Seg Neutrophils # 12.5 H Seg Neutrophils # Man Lymphocytes # (Manual) PT INR APTT Heparin Anti-Xa Level POC ABG pH POC ABG pCO2 POC ABG pO2 Sodium Potassium Chloride Carbon Dioxide 20 L BUN 21 H Creatinine 1.5 H Glucose 326 H POC Glucose 329 H Hemoglobin A1c Lactic Acid Calcium 7.8 L Phosphorus AST Alkaline Phosphatase NT-Pro-B Natriuret Pep Total Protein Albumin Urine WBC (Auto) Crossmatch 10/16/18 10/17/18 10/17/18 13:27 00:35 05:00 WBC RBC Hgb Hct MCH RDW Plt Count Lymph % (Auto) Rains % (Auto) Lymph # Rains # Eos # Baso # Seg Neutrophils % Seg Neuts % (Manual) Lymphocytes % (Manual) Seg Neutrophils # Seg Neutrophils # Man Lymphocytes # (Manual) PT 55.4 H 60.2 H INR 5.68 H* 6.30 H* APTT Heparin Anti-Xa Level POC ABG pH POC ABG pCO2 POC ABG pO2 Sodium Potassium Chloride Carbon Dioxide BUN Creatinine Glucose POC Glucose 407 H Hemoglobin A1c Lactic Acid Calcium Phosphorus AST Alkaline Phosphatase NT-Pro-B Natriuret Pep Total Protein Albumin Urine WBC (Auto) Crossmatch 10/17/18 10/17/18 10/17/18 05:00 05:00 05:29 WBC 11.6 H RBC 2.99 L Hgb 8.0 L Hct 24.2 L MCH 27 L RDW 19.2 H Plt Count Lymph % (Auto) Rains % (Auto) Lymph # Rains # Eos # Baso # Seg Neutrophils % Seg Neuts % (Manual) 87.0 H Lymphocytes % (Manual) 9.0 L Seg Neutrophils # Seg Neutrophils # Man 10.1 H Lymphocytes # (Manual) 1.0 L PT INR APTT Heparin Anti-Xa Level POC ABG pH POC ABG pCO2 POC ABG pO2 Sodium Potassium 3.4 L D Chloride Carbon Dioxide BUN Creatinine 1.4 H Glucose 170 H POC Glucose 156 H Hemoglobin A1c Lactic Acid Calcium 7.6 L Phosphorus AST Alkaline Phosphatase NT-Pro-B Natriuret Pep Total Protein 5.4 L Albumin 2.2 L Urine WBC (Auto) Crossmatch 10/17/18 10/17/18 10/18/18 11:59 17:06 00:21 WBC RBC Hgb Hct MCH RDW Plt Count Lymph % (Auto) Rains % (Auto) Lymph # Rains # Eos # Baso # Seg Neutrophils % Seg Neuts % (Manual) Lymphocytes % (Manual) Seg Neutrophils # Seg Neutrophils # Man Lymphocytes # (Manual) PT INR APTT Heparin Anti-Xa Level POC ABG pH POC ABG pCO2 POC ABG pO2 Sodium Potassium Chloride Carbon Dioxide BUN Creatinine Glucose POC Glucose 389 H 151 H 355 H Hemoglobin A1c Lactic Acid Calcium Phosphorus AST Alkaline Phosphatase NT-Pro-B Natriuret Pep Total Protein Albumin Urine WBC (Auto) Crossmatch 10/18/18 10/18/18 10/18/18 04:17 04:17 04:17 WBC RBC 3.01 L Hgb 8.1 L Hct 24.6 L MCH 27 L RDW 19.7 H Plt Count Lymph % (Auto) 12.7 L Rains % (Auto) Lymph # Rains # Eos # Baso # Seg Neutrophils % 76.3 H Seg Neuts % (Manual) Lymphocytes % (Manual) Seg Neutrophils # 8.2 H Seg Neutrophils # Man Lymphocytes # (Manual) PT 39.5 H INR 3.72 H APTT Heparin Anti-Xa Level POC ABG pH POC ABG pCO2 POC ABG pO2 Sodium Potassium 3.5 L Chloride Carbon Dioxide BUN Creatinine 1.5 H Glucose 115 H POC Glucose Hemoglobin A1c Lactic Acid Calcium 7.4 L Phosphorus AST Alkaline Phosphatase NT-Pro-B Natriuret Pep Total Protein Albumin Urine WBC (Auto) Crossmatch 10/18/18 10/18/18 10/18/18 06:45 13:39 17:12 WBC RBC Hgb Hct MCH RDW Plt Count Lymph % (Auto) Rains % (Auto) Lymph # Rains # Eos # Baso # Seg Neutrophils % Seg Neuts % (Manual) Lymphocytes % (Manual) Seg Neutrophils # Seg Neutrophils # Man Lymphocytes # (Manual) PT INR APTT Heparin Anti-Xa Level POC ABG pH POC ABG pCO2 POC ABG pO2 Sodium Potassium Chloride Carbon Dioxide BUN Creatinine Glucose POC Glucose 170 H 415 H 377 H Hemoglobin A1c Lactic Acid Calcium Phosphorus AST Alkaline Phosphatase NT-Pro-B Natriuret Pep Total Protein Albumin Urine WBC (Auto) Crossmatch 10/19/18 10/19/18 10/19/18 00:48 05:35 05:52 WBC RBC 2.84 L Hgb 7.7 L Hct 23.2 L MCH 27 L RDW 19.8 H Plt Count Lymph % (Auto) 11.0 L Rains % (Auto) Lymph # 1.1 L Rains # Eos # Baso # Seg Neutrophils % 78.5 H Seg Neuts % (Manual) Lymphocytes % (Manual) Seg Neutrophils # 8.1 H Seg Neutrophils # Man Lymphocytes # (Manual) PT INR APTT Heparin Anti-Xa Level POC ABG pH POC ABG pCO2 POC ABG pO2 Sodium Potassium Chloride Carbon Dioxide BUN Creatinine Glucose POC Glucose 308 H 116 H Hemoglobin A1c Lactic Acid Calcium Phosphorus AST Alkaline Phosphatase NT-Pro-B Natriuret Pep Total Protein Albumin Urine WBC (Auto) Crossmatch 10/19/18 10/19/18 10/19/18 05:52 07:12 09:41 WBC RBC Hgb 8.1 L Hct 24.6 L MCH RDW Plt Count Lymph % (Auto) Rains % (Auto) Lymph # Rains # Eos # Baso # Seg Neutrophils % Seg Neuts % (Manual) Lymphocytes % (Manual) Seg Neutrophils # Seg Neutrophils # Man Lymphocytes # (Manual) PT 18.1 H INR 1.40 H APTT Heparin Anti-Xa Level POC ABG pH POC ABG pCO2 POC ABG pO2 Sodium Potassium Chloride Carbon Dioxide BUN 21 H Creatinine 1.6 H Glucose 128 H POC Glucose Hemoglobin A1c Lactic Acid Calcium 7.7 L Phosphorus AST Alkaline Phosphatase NT-Pro-B Natriuret Pep Total Protein Albumin Urine WBC (Auto) Crossmatch 10/19/18 10/19/18 10/19/18 09:41 11:46 12:26 WBC RBC Hgb Hct MCH RDW Plt Count Lymph % (Auto) Rains % (Auto) Lymph # Rains # Eos # Baso # Seg Neutrophils % Seg Neuts % (Manual) Lymphocytes % (Manual) Seg Neutrophils # Seg Neutrophils # Man Lymphocytes # (Manual) PT 17.7 H INR 1.36 H APTT Heparin Anti-Xa Level 0.19 L POC ABG pH POC ABG pCO2 POC ABG pO2 Sodium Potassium Chloride Carbon Dioxide BUN Creatinine Glucose POC Glucose 212 H Hemoglobin A1c Lactic Acid Calcium Phosphorus AST Alkaline Phosphatase NT-Pro-B Natriuret Pep Total Protein Albumin Urine WBC (Auto) Crossmatch 10/19/18 10/19/18 10/19/18 16:12 19:56 22:09 WBC RBC Hgb Hct MCH RDW Plt Count Lymph % (Auto) Rains % (Auto) Lymph # Rains # Eos # Baso # Seg Neutrophils % Seg Neuts % (Manual) Lymphocytes % (Manual) Seg Neutrophils # Seg Neutrophils # Man Lymphocytes # (Manual) PT INR APTT Heparin Anti-Xa Level POC ABG pH 7.458 H POC ABG pCO2 POC ABG pO2 63 L Sodium Potassium Chloride Carbon Dioxide BUN Creatinine Glucose POC Glucose 260 H 216 H Hemoglobin A1c Lactic Acid Calcium Phosphorus AST Alkaline Phosphatase NT-Pro-B Natriuret Pep Total Protein Albumin Urine WBC (Auto) Crossmatch 10/20/18 10/20/18 10/20/18 03:00 03:00 03:00 WBC 14.8 H RBC 2.81 L Hgb 7.5 L Hct 23.1 L MCH 27 L RDW 20.0 H Plt Count Lymph % (Auto) 11.5 L Rains % (Auto) Lymph # Rains # 0.9 H Eos # Baso # Seg Neutrophils % 79.7 H Seg Neuts % (Manual) Lymphocytes % (Manual) Seg Neutrophils # 11.8 H Seg Neutrophils # Man Lymphocytes # (Manual) PT 16.9 H INR 1.29 H APTT Heparin Anti-Xa Level 0.24 L POC ABG pH POC ABG pCO2 POC ABG pO2 Sodium Potassium Chloride 97.8 L Carbon Dioxide BUN 20 H Creatinine 1.5 H Glucose 206 H POC Glucose Hemoglobin A1c Lactic Acid Calcium 7.8 L Phosphorus AST Alkaline Phosphatase NT-Pro-B Natriuret Pep Total Protein Albumin Urine WBC (Auto) Crossmatch 10/20/18 10/20/18 10/20/18 06:59 10:20 10:59 WBC RBC Hgb Hct MCH RDW Plt Count Lymph % (Auto) Rains % (Auto) Lymph # Rains # Eos # Baso # Seg Neutrophils % Seg Neuts % (Manual) Lymphocytes % (Manual) Seg Neutrophils # Seg Neutrophils # Man Lymphocytes # (Manual) PT 15.5 H INR 1.16 H APTT Heparin Anti-Xa Level < 0.10 L POC ABG pH POC ABG pCO2 POC ABG pO2 Sodium Potassium Chloride Carbon Dioxide BUN Creatinine Glucose POC Glucose 348 H 227 H Hemoglobin A1c Lactic Acid Calcium Phosphorus AST Alkaline Phosphatase NT-Pro-B Natriuret Pep Total Protein Albumin Urine WBC (Auto) Crossmatch 10/20/18 10/20/18 10/21/18 16:15 17:14 00:53 WBC RBC Hgb Hct MCH RDW Plt Count Lymph % (Auto) Rains % (Auto) Lymph # Rains # Eos # Baso # Seg Neutrophils % Seg Neuts % (Manual) Lymphocytes % (Manual) Seg Neutrophils # Seg Neutrophils # Man Lymphocytes # (Manual) PT INR APTT Heparin Anti-Xa Level 0.24 L POC ABG pH POC ABG pCO2 POC ABG pO2 Sodium Potassium Chloride Carbon Dioxide BUN Creatinine Glucose POC Glucose 279 H 136 H Hemoglobin A1c Lactic Acid Calcium Phosphorus AST Alkaline Phosphatase NT-Pro-B Natriuret Pep Total Protein Albumin Urine WBC (Auto) Crossmatch 10/21/18 10/21/18 10/21/18 05:45 05:45 05:45 WBC 15.8 H RBC 2.79 L Hgb 7.5 L Hct 22.9 L MCH 27 L RDW 19.8 H Plt Count Lymph % (Auto) 7.2 L Rains % (Auto) Lymph # 1.1 L Rains # Eos # Baso # Seg Neutrophils % 85.7 H Seg Neuts % (Manual) Lymphocytes % (Manual) Seg Neutrophils # 13.5 H Seg Neutrophils # Man Lymphocytes # (Manual) PT 16.9 H INR 1.29 H APTT Heparin Anti-Xa Level POC ABG pH POC ABG pCO2 POC ABG pO2 Sodium Potassium Chloride Carbon Dioxide BUN 18 H Creatinine 1.4 H Glucose 339 H POC Glucose Hemoglobin A1c Lactic Acid Calcium 8.3 L Phosphorus AST Alkaline Phosphatase NT-Pro-B Natriuret Pep Total Protein Albumin Urine WBC (Auto) Crossmatch 10/21/18 10/21/18 10/21/18 08:00 10:13 11:00 WBC RBC Hgb Hct MCH RDW Plt Count Lymph % (Auto) Rains % (Auto) Lymph # Rains # Eos # Baso # Seg Neutrophils % Seg Neuts % (Manual) Lymphocytes % (Manual) Seg Neutrophils # Seg Neutrophils # Man Lymphocytes # (Manual) PT INR APTT Heparin Anti-Xa Level POC ABG pH POC ABG pCO2 POC ABG pO2 Sodium Potassium Chloride Carbon Dioxide BUN Creatinine Glucose POC Glucose 398 H 295 H Hemoglobin A1c Lactic Acid Calcium Phosphorus AST Alkaline Phosphatase NT-Pro-B Natriuret Pep Total Protein Albumin Urine WBC (Auto) 125.0 H Crossmatch 10/21/18 10/21/18 10/21/18 11:18 17:20 17:52 WBC RBC Hgb Hct MCH RDW Plt Count Lymph % (Auto) Rains % (Auto) Lymph # Rains # Eos # Baso # Seg Neutrophils % Seg Neuts % (Manual) Lymphocytes % (Manual) Seg Neutrophils # Seg Neutrophils # Man Lymphocytes # (Manual) PT 17.2 H INR 1.32 H APTT 40.0 H Heparin Anti-Xa Level POC ABG pH POC ABG pCO2 POC ABG pO2 Sodium Potassium Chloride Carbon Dioxide BUN Creatinine Glucose POC Glucose 235 H 271 H Hemoglobin A1c Lactic Acid Calcium Phosphorus AST Alkaline Phosphatase NT-Pro-B Natriuret Pep Total Protein Albumin Urine WBC (Auto) Crossmatch 10/21/18 10/22/18 10/22/18 23:41 00:47 04:39 WBC 16.1 H RBC 2.69 L Hgb 6.7 L 7.3 L Hct 19.8 L* 22.3 L MCH 27 L RDW 20.4 H Plt Count Lymph % (Auto) 6.9 L Rains % (Auto) Lymph # 1.1 L Rains # 1.0 H Eos # Baso # Seg Neutrophils % 85.3 H Seg Neuts % (Manual) Lymphocytes % (Manual) Seg Neutrophils # 13.8 H Seg Neutrophils # Man Lymphocytes # (Manual) PT INR APTT Heparin Anti-Xa Level POC ABG pH POC ABG pCO2 POC ABG pO2 Sodium Potassium Chloride Carbon Dioxide BUN Creatinine Glucose POC Glucose 157 H Hemoglobin A1c Lactic Acid Calcium Phosphorus AST Alkaline Phosphatase NT-Pro-B Natriuret Pep Total Protein Albumin Urine WBC (Auto) Crossmatch 10/22/18 10/22/18 10/22/18 04:39 04:39 04:39 WBC RBC Hgb Hct MCH RDW Plt Count Lymph % (Auto) Rains % (Auto) Lymph # Rains # Eos # Baso # Seg Neutrophils % Seg Neuts % (Manual) Lymphocytes % (Manual) Seg Neutrophils # Seg Neutrophils # Man Lymphocytes # (Manual) PT 20.3 H INR 1.62 H APTT Heparin Anti-Xa Level 0.12 L POC ABG pH POC ABG pCO2 POC ABG pO2 Sodium Potassium Chloride Carbon Dioxide BUN 20 H Creatinine 1.7 H Glucose 255 H POC Glucose Hemoglobin A1c Lactic Acid Calcium 8.1 L Phosphorus AST Alkaline Phosphatase NT-Pro-B Natriuret Pep Total Protein Albumin Urine WBC (Auto) Crossmatch See Detail 10/22/18 10/22/18 10/22/18 05:09 11:20 11:20 WBC RBC Hgb 7.4 L Hct 21.9 L MCH RDW Plt Count 457 H Lymph % (Auto) Rains % (Auto) Lymph # Rains # Eos # Baso # Seg Neutrophils % Seg Neuts % (Manual) Lymphocytes % (Manual) Seg Neutrophils # Seg Neutrophils # Man Lymphocytes # (Manual) PT 20.8 H INR 1.67 H APTT 71.0 H* Heparin Anti-Xa Level 0.20 L POC ABG pH POC ABG pCO2 POC ABG pO2 Sodium Potassium Chloride Carbon Dioxide BUN Creatinine Glucose POC Glucose 297 H Hemoglobin A1c Lactic Acid Calcium Phosphorus AST Alkaline Phosphatase NT-Pro-B Natriuret Pep Total Protein Albumin Urine WBC (Auto) Crossmatch 10/22/18 10/22/18 10/22/18 12:09 16:51 17:11 WBC RBC Hgb Hct MCH RDW Plt Count Lymph % (Auto) Rains % (Auto) Lymph # Rains # Eos # Baso # Seg Neutrophils % Seg Neuts % (Manual) Lymphocytes % (Manual) Seg Neutrophils # Seg Neutrophils # Man Lymphocytes # (Manual) PT INR APTT Heparin Anti-Xa Level POC ABG pH POC ABG pCO2 POC ABG pO2 Sodium Potassium Chloride Carbon Dioxide BUN Creatinine Glucose 115 H POC Glucose 125 H < 40 L Hemoglobin A1c Lactic Acid Calcium Phosphorus AST Alkaline Phosphatase NT-Pro-B Natriuret Pep Total Protein Albumin Urine WBC (Auto) Crossmatch 10/22/18 10/23/18 10/23/18 17:13 00:08 06:19 WBC RBC Hgb Hct MCH RDW Plt Count Lymph % (Auto) Rains % (Auto) Lymph # Rains # Eos # Baso # Seg Neutrophils % Seg Neuts % (Manual) Lymphocytes % (Manual) Seg Neutrophils # Seg Neutrophils # Man Lymphocytes # (Manual) PT INR APTT Heparin Anti-Xa Level POC ABG pH POC ABG pCO2 POC ABG pO2 Sodium Potassium Chloride Carbon Dioxide BUN Creatinine Glucose POC Glucose 126 H 192 H 249 H Hemoglobin A1c Lactic Acid Calcium Phosphorus AST Alkaline Phosphatase NT-Pro-B Natriuret Pep Total Protein Albumin Urine WBC (Auto) Crossmatch 10/23/18 10/23/18 10/23/18 07:21 07:21 07:21 WBC 14.4 H RBC 3.29 L Hgb 9.2 L Hct 27.6 L MCH RDW 20.5 H Plt Count 505 H Lymph % (Auto) 8.1 L Rains % (Auto) Lymph # Rains # 1.0 H Eos # 0.6 H Baso # Seg Neutrophils % 80.0 H Seg Neuts % (Manual) Lymphocytes % (Manual) Seg Neutrophils # 11.5 H Seg Neutrophils # Man Lymphocytes # (Manual) PT 21.6 H INR 1.75 H APTT Heparin Anti-Xa Level POC ABG pH POC ABG pCO2 POC ABG pO2 Sodium Potassium Chloride Carbon Dioxide BUN 18 H Creatinine 1.5 H Glucose 308 H POC Glucose Hemoglobin A1c Lactic Acid Calcium Phosphorus AST Alkaline Phosphatase NT-Pro-B Natriuret Pep Total Protein Albumin Urine WBC (Auto) Crossmatch 10/23/18 10/23/18 10/23/18 10:34 11:56 17:07 WBC RBC Hgb Hct MCH RDW Plt Count Lymph % (Auto) Rains % (Auto) Lymph # Rains # Eos # Baso # Seg Neutrophils % Seg Neuts % (Manual) Lymphocytes % (Manual) Seg Neutrophils # Seg Neutrophils # Man Lymphocytes # (Manual) PT INR APTT Heparin Anti-Xa Level POC ABG pH POC ABG pCO2 POC ABG pO2 Sodium Potassium Chloride Carbon Dioxide BUN Creatinine Glucose POC Glucose > 500 H 440 H 387 H Hemoglobin A1c Lactic Acid Calcium Phosphorus AST Alkaline Phosphatase NT-Pro-B Natriuret Pep Total Protein Albumin Urine WBC (Auto) Crossmatch 10/23/18 10/24/18 10/24/18 23:44 06:18 06:39 WBC RBC Hgb 7.9 L Hct 24.3 L MCH RDW Plt Count 522 H Lymph % (Auto) Rains % (Auto) Lymph # Rains # Eos # Baso # Seg Neutrophils % Seg Neuts % (Manual) Lymphocytes % (Manual) Seg Neutrophils # Seg Neutrophils # Man Lymphocytes # (Manual) PT INR APTT Heparin Anti-Xa Level POC ABG pH POC ABG pCO2 POC ABG pO2 Sodium Potassium Chloride Carbon Dioxide BUN Creatinine Glucose POC Glucose 172 H 154 H Hemoglobin A1c Lactic Acid Calcium Phosphorus AST Alkaline Phosphatase NT-Pro-B Natriuret Pep Total Protein Albumin Urine WBC (Auto) Crossmatch 10/24/18 10/24/18 10/24/18 08:05 11:12 18:50 WBC RBC Hgb Hct MCH RDW Plt Count Lymph % (Auto) Rains % (Auto) Lymph # Rains # Eos # Baso # Seg Neutrophils % Seg Neuts % (Manual) Lymphocytes % (Manual) Seg Neutrophils # Seg Neutrophils # Man Lymphocytes # (Manual) PT 20.5 H INR 1.64 H APTT Heparin Anti-Xa Level < 0.10 L POC ABG pH POC ABG pCO2 POC ABG pO2 Sodium Potassium Chloride Carbon Dioxide BUN Creatinine Glucose POC Glucose 203 H Hemoglobin A1c Lactic Acid Calcium Phosphorus AST Alkaline Phosphatase NT-Pro-B Natriuret Pep Total Protein Albumin Urine WBC (Auto) Crossmatch 10/25/18 10/25/18 10/25/18 01:29 06:00 06:00 WBC RBC Hgb 7.8 L Hct 23.9 L MCH RDW Plt Count 569 H Lymph % (Auto) Rains % (Auto) Lymph # Rains # Eos # Baso # Seg Neutrophils % Seg Neuts % (Manual) Lymphocytes % (Manual) Seg Neutrophils # Seg Neutrophils # Man Lymphocytes # (Manual) PT 15.6 H INR 1.17 H APTT Heparin Anti-Xa Level POC ABG pH POC ABG pCO2 POC ABG pO2 Sodium Potassium Chloride Carbon Dioxide BUN Creatinine Glucose POC Glucose 146 H Hemoglobin A1c Lactic Acid Calcium Phosphorus AST Alkaline Phosphatase NT-Pro-B Natriuret Pep Total Protein Albumin Urine WBC (Auto) Crossmatch 10/25/18 10/25/18 10/25/18 06:00 06:11 12:05 WBC RBC Hgb Hct MCH RDW Plt Count Lymph % (Auto) Rains % (Auto) Lymph # Rains # Eos # Baso # Seg Neutrophils % Seg Neuts % (Manual) Lymphocytes % (Manual) Seg Neutrophils # Seg Neutrophils # Man Lymphocytes # (Manual) PT INR APTT Heparin Anti-Xa Level 0.14 L POC ABG pH POC ABG pCO2 POC ABG pO2 Sodium Potassium Chloride Carbon Dioxide BUN Creatinine Glucose POC Glucose 246 H 283 H Hemoglobin A1c Lactic Acid Calcium Phosphorus AST Alkaline Phosphatase NT-Pro-B Natriuret Pep Total Protein Albumin Urine WBC (Auto) Crossmatch 10/25/18 10/25/18 10/26/18 17:53 21:20 04:59 WBC RBC Hgb 8.0 L Hct 24.4 L MCH RDW Plt Count Lymph % (Auto) Rains % (Auto) Lymph # Rains # Eos # Baso # Seg Neutrophils % Seg Neuts % (Manual) Lymphocytes % (Manual) Seg Neutrophils # Seg Neutrophils # Man Lymphocytes # (Manual) PT INR APTT Heparin Anti-Xa Level POC ABG pH POC ABG pCO2 POC ABG pO2 Sodium Potassium Chloride Carbon Dioxide BUN Creatinine Glucose POC Glucose 298 H 336 H Hemoglobin A1c Lactic Acid Calcium Phosphorus AST Alkaline Phosphatase NT-Pro-B Natriuret Pep Total Protein Albumin Urine WBC (Auto) Crossmatch 10/26/18 10/26/18 10/26/18 04:59 07:48 12:33 WBC RBC Hgb Hct MCH RDW Plt Count Lymph % (Auto) Rains % (Auto) Lymph # Rains # Eos # Baso # Seg Neutrophils % Seg Neuts % (Manual) Lymphocytes % (Manual) Seg Neutrophils # Seg Neutrophils # Man Lymphocytes # (Manual) PT INR APTT Heparin Anti-Xa Level 0.21 L 0.19 L POC ABG pH POC ABG pCO2 POC ABG pO2 Sodium Potassium Chloride Carbon Dioxide BUN Creatinine Glucose POC Glucose 339 H Hemoglobin A1c Lactic Acid Calcium Phosphorus AST Alkaline Phosphatase NT-Pro-B Natriuret Pep Total Protein Albumin Urine WBC (Auto) Crossmatch 10/26/18 10/26/18 10/26/18 15:49 15:54 17:36 WBC RBC Hgb Hct MCH RDW Plt Count Lymph % (Auto) Rains % (Auto) Lymph # Rains # Eos # Baso # Seg Neutrophils % Seg Neuts % (Manual) Lymphocytes % (Manual) Seg Neutrophils # Seg Neutrophils # Man Lymphocytes # (Manual) PT INR APTT Heparin Anti-Xa Level POC ABG pH POC ABG pCO2 POC ABG pO2 Sodium Potassium Chloride Carbon Dioxide BUN Creatinine Glucose 49 L POC Glucose < 40 L 226 H Hemoglobin A1c Lactic Acid Calcium Phosphorus AST Alkaline Phosphatase NT-Pro-B Natriuret Pep Total Protein Albumin Urine WBC (Auto) Crossmatch 10/26/18 10/26/18 10/27/18 19:42 21:08 03:00 WBC RBC Hgb 7.9 L Hct 23.8 L MCH RDW Plt Count 629 H Lymph % (Auto) Rains % (Auto) Lymph # Rains # Eos # Baso # Seg Neutrophils % Seg Neuts % (Manual) Lymphocytes % (Manual) Seg Neutrophils # Seg Neutrophils # Man Lymphocytes # (Manual) PT INR APTT Heparin Anti-Xa Level 0.19 L POC ABG pH POC ABG pCO2 POC ABG pO2 Sodium Potassium Chloride Carbon Dioxide BUN Creatinine Glucose POC Glucose 234 H Hemoglobin A1c Lactic Acid Calcium Phosphorus AST Alkaline Phosphatase NT-Pro-B Natriuret Pep Total Protein Albumin Urine WBC (Auto) Crossmatch 10/27/18 10/27/18 10/27/18 08:16 12:30 16:44 WBC RBC Hgb Hct MCH RDW Plt Count Lymph % (Auto) Rains % (Auto) Lymph # Rains # Eos # Baso # Seg Neutrophils % Seg Neuts % (Manual) Lymphocytes % (Manual) Seg Neutrophils # Seg Neutrophils # Man Lymphocytes # (Manual) PT INR APTT Heparin Anti-Xa Level POC ABG pH POC ABG pCO2 POC ABG pO2 Sodium Potassium Chloride Carbon Dioxide BUN Creatinine Glucose POC Glucose 181 H 287 H 339 H Hemoglobin A1c Lactic Acid Calcium Phosphorus AST Alkaline Phosphatase NT-Pro-B Natriuret Pep Total Protein Albumin Urine WBC (Auto) Crossmatch 10/27/18 10/28/18 10/28/18 21:09 03:57 03:57 WBC RBC Hgb 7.7 L Hct 23.5 L MCH RDW Plt Count Lymph % (Auto) Rains % (Auto) Lymph # Rains # Eos # Baso # Seg Neutrophils % Seg Neuts % (Manual) Lymphocytes % (Manual) Seg Neutrophils # Seg Neutrophils # Man Lymphocytes # (Manual) PT 15.1 H INR APTT Heparin Anti-Xa Level 0.29 L POC ABG pH POC ABG pCO2 POC ABG pO2 Sodium Potassium Chloride Carbon Dioxide BUN Creatinine Glucose POC Glucose 120 H Hemoglobin A1c Lactic Acid Calcium Phosphorus AST Alkaline Phosphatase NT-Pro-B Natriuret Pep Total Protein Albumin Urine WBC (Auto) Crossmatch 10/28/18 10/28/18 10/28/18 08:20 11:08 16:32 WBC RBC Hgb Hct MCH RDW Plt Count Lymph % (Auto) Rains % (Auto) Lymph # Rains # Eos # Baso # Seg Neutrophils % Seg Neuts % (Manual) Lymphocytes % (Manual) Seg Neutrophils # Seg Neutrophils # Man Lymphocytes # (Manual) PT INR APTT Heparin Anti-Xa Level POC ABG pH POC ABG pCO2 POC ABG pO2 Sodium Potassium Chloride Carbon Dioxide BUN Creatinine Glucose POC Glucose 308 H 371 H 115 H Hemoglobin A1c Lactic Acid Calcium Phosphorus AST Alkaline Phosphatase NT-Pro-B Natriuret Pep Total Protein Albumin Urine WBC (Auto) Crossmatch 10/28/18 10/29/18 10/29/18 22:01 07:06 07:06 WBC RBC Hgb 7.8 L Hct 23.8 L MCH RDW Plt Count 625 H Lymph % (Auto) Rains % (Auto) Lymph # Rains # Eos # Baso # Seg Neutrophils % Seg Neuts % (Manual) Lymphocytes % (Manual) Seg Neutrophils # Seg Neutrophils # Man Lymphocytes # (Manual) PT 15.4 H INR 1.15 H APTT Heparin Anti-Xa Level POC ABG pH POC ABG pCO2 POC ABG pO2 Sodium Potassium Chloride Carbon Dioxide BUN Creatinine Glucose POC Glucose 287 H Hemoglobin A1c Lactic Acid Calcium Phosphorus AST Alkaline Phosphatase NT-Pro-B Natriuret Pep Total Protein Albumin Urine WBC (Auto) Crossmatch 10/29/18 10/29/18 10/29/18 07:56 11:22 15:19 WBC RBC Hgb Hct MCH RDW Plt Count Lymph % (Auto) Rains % (Auto) Lymph # Rains # Eos # Baso # Seg Neutrophils % Seg Neuts % (Manual) Lymphocytes % (Manual) Seg Neutrophils # Seg Neutrophils # Man Lymphocytes # (Manual) PT INR APTT Heparin Anti-Xa Level 0.16 L POC ABG pH POC ABG pCO2 POC ABG pO2 Sodium Potassium Chloride Carbon Dioxide BUN Creatinine Glucose POC Glucose 199 H 328 H Hemoglobin A1c Lactic Acid Calcium Phosphorus AST Alkaline Phosphatase NT-Pro-B Natriuret Pep Total Protein Albumin Urine WBC (Auto) Crossmatch 10/29/18 10/29/18 10/30/18 15:19 16:26 04:59 WBC RBC Hgb Hct MCH RDW Plt Count Lymph % (Auto) Rains % (Auto) Lymph # Rains # Eos # Baso # Seg Neutrophils % Seg Neuts % (Manual) Lymphocytes % (Manual) Seg Neutrophils # Seg Neutrophils # Man Lymphocytes # (Manual) PT 17.7 H INR 1.36 H APTT Heparin Anti-Xa Level POC ABG pH POC ABG pCO2 POC ABG pO2 Sodium 135 L Potassium Chloride Carbon Dioxide 20 L BUN 33 H Creatinine 1.5 H Glucose 161 H POC Glucose 155 H Hemoglobin A1c Lactic Acid Calcium 8.3 L Phosphorus AST Alkaline Phosphatase NT-Pro-B Natriuret Pep Total Protein Albumin Urine WBC (Auto) Crossmatch 10/30/18 10/30/18 10/30/18 05:04 07:53 10:54 WBC RBC Hgb 7.9 L Hct 23.8 L MCH RDW Plt Count Lymph % (Auto) Rains % (Auto) Lymph # Rains # Eos # Baso # Seg Neutrophils % Seg Neuts % (Manual) Lymphocytes % (Manual) Seg Neutrophils # Seg Neutrophils # Man Lymphocytes # (Manual) PT INR APTT Heparin Anti-Xa Level POC ABG pH POC ABG pCO2 POC ABG pO2 Sodium Potassium Chloride Carbon Dioxide BUN Creatinine Glucose POC Glucose 291 H 313 H Hemoglobin A1c Lactic Acid Calcium Phosphorus AST Alkaline Phosphatase NT-Pro-B Natriuret Pep Total Protein Albumin Urine WBC (Auto) Crossmatch 10/30/18 10/30/18 10/31/18 16:05 21:22 06:00 WBC RBC Hgb Hct MCH RDW Plt Count Lymph % (Auto) Rains % (Auto) Lymph # Rains # Eos # Baso # Seg Neutrophils % Seg Neuts % (Manual) Lymphocytes % (Manual) Seg Neutrophils # Seg Neutrophils # Man Lymphocytes # (Manual) PT 19.9 H INR 1.58 H APTT Heparin Anti-Xa Level POC ABG pH POC ABG pCO2 POC ABG pO2 Sodium Potassium Chloride Carbon Dioxide BUN Creatinine Glucose POC Glucose 183 H 206 H Hemoglobin A1c Lactic Acid Calcium Phosphorus AST Alkaline Phosphatase NT-Pro-B Natriuret Pep Total Protein Albumin Urine WBC (Auto) Crossmatch 10/31/18 10/31/18 10/31/18 07:37 11:05 16:12 WBC RBC Hgb Hct MCH RDW Plt Count Lymph % (Auto) Rains % (Auto) Lymph # Rains # Eos # Baso # Seg Neutrophils % Seg Neuts % (Manual) Lymphocytes % (Manual) Seg Neutrophils # Seg Neutrophils # Man Lymphocytes # (Manual) PT INR APTT Heparin Anti-Xa Level POC ABG pH POC ABG pCO2 POC ABG pO2 Sodium Potassium Chloride Carbon Dioxide BUN Creatinine Glucose POC Glucose 342 H 406 H 299 H Hemoglobin A1c Lactic Acid Calcium Phosphorus AST Alkaline Phosphatase NT-Pro-B Natriuret Pep Total Protein Albumin Urine WBC (Auto) Crossmatch 10/31/18 11/01/1819 21:51 07:00 08:20 WBC RBC Hgb Hct MCH RDW Plt Count Lymph % (Auto) Rains % (Auto) Lymph # Rains # Eos # Baso # Seg Neutrophils % Seg Neuts % (Manual) Lymphocytes % (Manual) Seg Neutrophils # Seg Neutrophils # Man Lymphocytes # (Manual) PT 22.5 H INR 1.84 H APTT Heparin Anti-Xa Level POC ABG pH POC ABG pCO2 POC ABG pO2 Sodium Potassium Chloride Carbon Dioxide BUN Creatinine Glucose POC Glucose 129 H 249 H Hemoglobin A1c Lactic Acid Calcium Phosphorus AST Alkaline Phosphatase NT-Pro-B Natriuret Pep Total Protein Albumin Urine WBC (Auto) Crossmatch 11/01/18 11/01/18 11/01/18 12:15 16:24 21:57 WBC RBC Hgb Hct MCH RDW Plt Count Lymph % (Auto) Rains % (Auto) Lymph # Rains # Eos # Baso # Seg Neutrophils % Seg Neuts % (Manual) Lymphocytes % (Manual) Seg Neutrophils # Seg Neutrophils # Man Lymphocytes # (Manual) PT INR APTT Heparin Anti-Xa Level POC ABG pH POC ABG pCO2 POC ABG pO2 Sodium Potassium Chloride Carbon Dioxide BUN Creatinine Glucose POC Glucose 158 H 54 L 232 H Hemoglobin A1c Lactic Acid Calcium Phosphorus AST Alkaline Phosphatase NT-Pro-B Natriuret Pep Total Protein Albumin Urine WBC (Auto) Crossmatch 11/02/18 11/02/18 11/02/18 06:00 07:46 11:54 WBC RBC Hgb Hct MCH RDW Plt Count Lymph % (Auto) Rains % (Auto) Lymph # Rains # Eos # Baso # Seg Neutrophils % Seg Neuts % (Manual) Lymphocytes % (Manual) Seg Neutrophils # Seg Neutrophils # Man Lymphocytes # (Manual) PT 24.3 H INR 2.03 H APTT Heparin Anti-Xa Level POC ABG pH POC ABG pCO2 POC ABG pO2 Sodium Potassium Chloride Carbon Dioxide BUN Creatinine Glucose POC Glucose 51 L 188 H Hemoglobin A1c Lactic Acid Calcium Phosphorus AST Alkaline Phosphatase NT-Pro-B Natriuret Pep Total Protein Albumin Urine WBC (Auto) Crossmatch Allied health notes reviewed: nursing
[2018-11-02] MEDS: COUMADIN PO SCH (18:02)
[2018-11-02] MEDS: HumuLIN R SUB-Q SCH (22:22)
[2018-11-03] MEDS: APRESOLINE PO SCH ×3 (05:49→22:29)
[2018-11-03 06:55] LABS: INR 2.43 (0.87-1.13)
--- NOTE | 2018-11-03 07:55 | XRay Report ---
ROUTINE CHEST, TWO VIEWS: HISTORY: Followup on pulmonary infiltrates. Bilateral pulmonary edema or infiltrates have essentially resolved since 10/21/18 exam. Minor linear scarring in the right lung and left lower lobe are noted and unchanged. A small right pleural effusion is unchanged. Mild cardiomegaly is stable. Right arm PICC is in good position. IMPRESSION: Near resolution of the bilateral pulmonary edema or infiltrates. Stable mild cardiomegaly and small right pleural effusion.
[2018-11-03] MEDS: HumaLOG SUB-Q SCH ×6 (08:28→17:13)
[2018-11-03] MEDS: LOVENOX SUB-Q SCH ×2 (09:29→22:29)
[2018-11-03] MEDS: LOPRESSOR PO SCH ×2 (09:29→22:28)
[2018-11-03] MEDS: PREVACID SOLUTAB FEEDTUBE SCH ×2 (09:29→22:28)
[2018-11-03] MEDS: LASIX PO SCH (09:29)
[2018-11-03] MEDS: IMDUR PO SCH (09:30)
[2018-11-03] MEDS: LANTUS SUB-Q SCH (09:32)
[2018-11-03] MEDS: TYLENOL PO PRN (15:51)
--- NOTE | 2018-11-03 16:51 | Discharge Summary ---
Providers - Providers Date of Admission: 10/07/18 04:59 Date of discharge: 11/03/18 Attending physician: DEIRDRE LOWERY 10/07/18 06:03 Consult to Physician [CONS] Routine Comment: Consulting Provider: REJI WALTON Physician Instructions: Reason For Exam: acute respt failure 10/07/18 09:07 Consult to Dietitian/Nutrition [CONS] Routine Physician Instructions: Reason For Exam: Reason for Consult: Evaluate nutritional intake 10/07/18 20:42 Consult to Dietitian/Nutrition [CONS] Routine Physician Instructions: Reason For Exam: Reason for Consult: Write/Manage TPN/PPN 10/07/18 23:51 Consult to Dietitian/Nutrition [CONS] Routine Physician Instructions: Reason For Exam: DKA Reason for Consult: Nutrition Recommendations Reason for Consult: Write/Manage Tube Feeding 10/08/18 10:40 Consult to Dietitian/Nutrition [CONS] Routine Physician Instructions: Assess nutrtn needs, initiate, modify, manage TF Reason For Exam: Reason for Consult: Write/Manage Tube Feeding Reason for Consult: Write/Manage Tube Feeding 10/08/18 11:12 Consult to Physician [CONS] Routine Comment: Consulting Provider: MAYI JUAN Physician Instructions: Reason For Exam: mazin 10/09/18 23:14 Consult to Physician [CONS] Routine Comment: Consulting Provider: FREDERICK ZAPATA Physician Instructions: Reason For Exam: seizures 10/11/18 12:53 Consult to Physician [CONS] Routine Comment: Consulting Provider: NANDA HSIEH Physician Instructions: Reason For Exam: pna, sepsis 10/11/18 13:00 Consult to Physician [CONS] Routine Comment: Consulting Provider: ANUP WRIGHT Physician Instructions: Reason For Exam: Cardiomyopathy Consult to Physician [CONS] Urgent Comment: Consulting Provider: LUPILLO MUNOZ Physician Instructions: Reason For Exam: Acute GI Bleeding; Clearance for anticoagulation 10/13/18 10:14 Occupational Therapy Evaluate and Treat [CONS] Routine Comment: Reason For Exam: deconditioning, help with ADLS Physical Therapy Evaluation and Treat [CONS] Routine Comment: Reason For Exam: critical illness, deconditioning Speech Therapy Evaluation and Treat [CONS] Routine Reason For Exam: swallow function evalaution 10/21/18 07:39 Consult to Physician [CONS] Routine Comment: Consulting Provider: CINDY CASTREJON Physician Instructions: Reason For Exam: fever [facility] Condition: Stable Hospital course: 48 year old woman with history of coronary artery disease, status post cabbage, diabetes, hypertension who was brought to the emergency room for altered mental status. She was found to have hypoglycemia, she was also having convulsions at the time of admission. The patient was intubated, sp dextrose she was put on the ventilator she was found to have pneumonia and CHF flare and started on antibiotics. patient has history of MV replacement and was on anticoagulation. History of [facility] mitral valve replacement/hypercoaguable state/coagulopathy due to warfarin INR subtherapeutic, cont warfarin with lovenox bridge to be dc after confident with lovenox teaching, she is still unable to self inject, her room-mate has not shown up for teaching we'll for now we will plan to dc when INR is >2.4 Pneumonia, severe sepsis - Patient was on IV antibiotics and completed on 10/13 per ID Acute hypoxic respiratory failure on MV >96 hrs Was intubated and on mechanical ventilation - patient was extubated on 10/13 -Weaned to room air on 10/19, status epilepticus; Seizures when most likely due to hypoglycemia -Treated with dextrose - neurology consult appreciated Acute on chronic systolic CHF EF 40%, dilated ventricles -cardiology consult appreciated - on PO lasix [facility]/hypercoaguable state/coagulopathy due to warfarin INR subtherapeutic, cont warfarin with lovenox bridge to be dc after confident with lovenox teaching, she is still unable to self inject, her room-mate has not shown up for teaching Severe anemia sp-transfusion, Gi workup showed neg egd and c scope, outpatient pill camera recommended Currently stable 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, treated as type 1, uncontrolled, a1c 10.2 Continue insulins judiciously, brittle DM with episodes of hypoglycemia and hyperglycemia, labile glc Insulin dosage adjusted for discharge to home Mazin upon ckd stage 3, vasomotor nephropathy and likely ATN from sepsis Nephrology input appreciated, avoid nephrotoxins, neph signed off on 10/15 acute metabolic encephalopathy - Resolved hypernatremia - Resolved Hyperkalemia - resolved with insulin and diuretics htn urgency; - Controlled - optimized bp meds Marijuana abuse; was counseled, preventive health counseling dvt ppx- chemical, F/u with Cardiology in one week Disposition: DC-01 TO HOME OR SELFCARE Core Measure Documentation - Palliative Care Palliative Care/ Comfort Measures: Not Applicable - Core Measures Any of the following diagnoses?: none Exam - Constitutional Vitals: Temp Pulse Resp BP Pulse Ox 97.8 F 82 18 125/77 98 11/03/18 12:05 11/03/18 13:10 11/03/18 12:05 11/03/18 13:10 11/03/18 12:05 General appearance: Present: no acute distress, well-nourished - EENT Eyes: Present: PERRL ENT: hearing intact, clear oral mucosa - Neck Neck: Present: supple, normal ROM - Respiratory Respiratory effort: normal Respiratory: bilateral: CTA - Cardiovascular Heart rate: 78 Rhythm: regular Heart Sounds: Present: S1 & S2. Absent: rub, click - Extremities Extremities: no ischemia, pulses intact, pulses symmetrical, No edema Peripheral Pulses: within normal limits - Abdominal General gastrointestinal: Present: soft, non-tender, non-distended, normal bowel sounds Female genitourinary: Present: normal - Rectal Rectal Exam: deferred - Integumentary Integumentary: Present: clear, warm, dry - Musculoskeletal Musculoskeletal: gait normal, strength equal bilaterally - Psychiatric Psychiatric: appropriate mood/affect, intact judgment & insight - Neurologic Neurologic: CNII-XII intact, moves all extremities - Allied Health Allied health notes reviewed: nursing, case management Plan Activity: no restrictions Diet: diabetic Follow up with: [facility] RUBI [Primary Care Provider] - 3-5 Days ZUHAIR WHITTAKER MD [Staff Physician] - 7 Days Forms: Warfarin Discharge Instruction Prescriptions: hydrALAZINE [Apresoline TAB] 25 mg PO Q8HR #90 tablet Warfarin [Coumadin] 15 mg PO DAILY@1700 7 Days tablet ISOSORBIDE MONOnitrate [Imdur ER] 30 mg PO QDAY #30 tablet Insulin Glargine [Lantus VIAL] 10 units SUB-Q DAILY #1 vial Furosemide [Lasix TAB] 40 mg PO QDAY #30 tablet Metoprolol [Lopressor TAB] 50 mg PO BID #120 tablet Enoxaparin [Lovenox] 60 mg SUB-Q Q12HR #14 syringe Pantoprazole [Protonix] 40 mg PO QDAY #30 tablet QUEtiapine [SEROquel] 100 mg PO QHS #30 tablet
[2018-11-03] MEDS: COUMADIN PO SCH (17:12)
[2018-11-03] MEDS: SODIUM CHLORIDE FLUSH SYRINGE 10 ML IV SCH ×2 (17:38→22:34)
[2018-11-03] MEDS ORDERED: TRIPLE ANTIBIOTIC TP ONE (19:00)
[2018-11-03] MEDS: HumuLIN R SUB-Q SCH (22:34)
[2018-11-04 06:25] LABS: INR 2.21 (0.87-1.13)
[2018-11-04] MEDS: APRESOLINE PO SCH ×3 (06:37→22:34)
[2018-11-04] MEDS: HumaLOG SUB-Q SCH ×6 (08:16→17:04)
[2018-11-04] MEDS: IMDUR PO SCH (09:47)
[2018-11-04] MEDS: LOPRESSOR PO SCH ×2 (09:47→22:33)
[2018-11-04] MEDS: PREVACID SOLUTAB FEEDTUBE SCH ×2 (09:47→22:33)
[2018-11-04] MEDS: LOVENOX SUB-Q SCH ×2 (09:47→22:32)
[2018-11-04] MEDS: SODIUM CHLORIDE FLUSH SYRINGE 10 ML IV SCH ×2 (09:47→22:35)
[2018-11-04] MEDS: LASIX PO SCH (09:47)
[2018-11-04] MEDS: LANTUS SUB-Q SCH (09:48)
--- NOTE | 2018-11-04 13:00 | Progress Note ---
Assessment and Plan Acute hypoxemic respiratory failure, on mechanical ventilatory support. Symptomatic hypoglycemia. Seizures, possibly related to the hypoglycemia. Acute encephalopathy, toxic metabolic. Mild Hyponatremia Mechanical heart valve (mitral) History of cardiomyopathy. (EF 40%) Right pleural effusion. Pulmonary edema bilateral. History of diabetes. Hypertension. Coagulopathy that is probably related to her Coumadin use at home. - continue anticoagulation for target INR 2.5 to 3.5 - prn BIPAP at this point - cardiology evaluation ongoing (optimize cardiac function per cardiology team) - continue gentle diuresis (lasix 40 mg po daily) - G.I. evaluation noted - s/p AB's course - continue bronchodilators with pulmonary hygiene per RT - continue GI prophylaxis - continue prn supplemental oxygen to keep O2 sats > 90% - Continue cardioprotective measures - Replete electrolytes as indicated - Monitor renal indices closely - Avoid nephrotoxic agents, adjust all medications for CrCL - contiinue strict intake and output monitoring - advance diet per ST - Accuchecks with glycemic control. Target glucose of 140-180 mg/dL - Maintenance of sleep -wake cycle - Mobility as tolerated by hemodynamics - Influenza and pneumonia vaccination per protocol - discharge planning ongoing concurrently Subjective Date of service: 11/04/18 Principal diagnosis: Ac hypoxemic resp failure; Seizures (?hypoglycemic); Ac encephalopathy(T/M) Interval history: Patient is seen today for: Acute hypoxemic respiratory failure, on mechanical ventilatory support; Symptomatic hypoglycemia; Seizures, possibly related to the hypoglycemia; Acute encephalopathy, toxic metabolic; Mild Hyponatremi; History of cardiomyopathy. (EF 40%) Seen and examined at bedside; 24hour events reviewed; nursing and respiratory care staff consulted; no adverse overnight events reported to me; resting peacefully in bed; denies acute chest pains or palpitations still with intermittent cough and non bloody expectoration; No N/V/F/C Objective Vital Signs - 12hr 11/04/18 11/04/18 11/04/18 05:29 06:37 09:47 Temperature 98.2 F Pulse Rate 80 80 Respiratory 16 Rate Blood Pressure 128/82 126/82 124/70 O2 Sat by Pulse 100 Oximetry Constitutional: no acute distress, other (middle aged AAF, normocephalic and with mildly increased resp effort at rest) Eyes: non-icteric ENT: oropharynx moist, other (extubated) Neck: supple, no lymphadenopathy, no JVD, other (mallampati 2) Effort: mildly labored Ascultation: Bilateral: diminished breath sounds, rales (bases) Percussion: Bilateral: not dull Cardiovascular: regular rate and rhythm, other (+ metalic valve click) Gastrointestinal: normoactive bowel sounds, soft, non-tender, non-distended, other (No HSM) Integumentary: normal Extremities: no cyanosis, no edema, pulses normal, no ischemia or petechiae Neurologic: non-focal exam (grossly), pupils equal and round, CN II-XII normal, motor strength normal and Psychiatric: mood appropriate, affect normal CBC and BMP: 10/30/18 05:04 10/29/18 15:19 ABG, PT/INR, D-dimer: ABG POC ABG pH 7.458 (7.35-7.45) H 10/19/18 19:56 POC ABG pCO2 37.9 (35-45) 10/19/18 19:56 POC ABG pO2 63 (80-105) L 10/19/18 19:56 POC ABG HCO3 26.8 (22-26 mml/L) 10/19/18 19:56 POC ABG Total CO2 28 (23-27mmol/L) 10/19/18 19:56 POC ABG O2 Sat 93 10/19/18 19:56 PT/INR, D-dimer PT 26.0 Sec. (12.2-14.9) H 11/04/18 05:55 INR 2.21 (0.87-1.13) H 11/04/18 05:55 Abnormal lab findings: Abnormal Labs 10/07/18 10/07/18 10/07/18 02:20 02:43 02:43 WBC RBC Hgb Hct MCH 25 L RDW 21.5 H Plt Count Lymph % (Auto) [place] % (Auto) Lymph # 0.9 L [place] # Eos # Baso # Seg Neutrophils % 78.4 H Seg Neuts % (Manual) Lymphocytes % (Manual) Seg Neutrophils # Seg Neutrophils # Man Lymphocytes # (Manual) PT INR APTT Heparin Anti-Xa Level POC ABG pH POC ABG pCO2 POC ABG pO2 Sodium Potassium Chloride 108.0 H Carbon Dioxide 21 L BUN Creatinine 1.5 H Glucose 115 H POC Glucose 136 H Hemoglobin A1c Lactic Acid Calcium Phosphorus AST 51 H Alkaline Phosphatase 257 H NT-Pro-B Natriuret Pep Total Protein Albumin Urine WBC (Auto) Crossmatch 10/07/18 10/07/18 10/07/18 02:43 04:32 05:12 WBC RBC Hgb Hct MCH RDW Plt Count Lymph % (Auto) [place] % (Auto) Lymph # [place] # Eos # Baso # Seg Neutrophils % Seg Neuts % (Manual) Lymphocytes % (Manual) Seg Neutrophils # Seg Neutrophils # Man Lymphocytes # (Manual) PT 25.4 H INR 2.14 H APTT Heparin Anti-Xa Level POC ABG pH POC ABG pCO2 33.6 L POC ABG pO2 69 L Sodium Potassium Chloride Carbon Dioxide BUN Creatinine Glucose POC Glucose Hemoglobin A1c Lactic Acid 2.40 H* Calcium Phosphorus AST Alkaline Phosphatase NT-Pro-B Natriuret Pep Total Protein Albumin Urine WBC (Auto) Crossmatch 10/07/18 10/07/18 10/07/18 06:28 18:39 20:26 WBC RBC Hgb Hct MCH RDW Plt Count Lymph % (Auto) [place] % (Auto) Lymph # [place] # Eos # Baso # Seg Neutrophils % Seg Neuts % (Manual) Lymphocytes % (Manual) Seg Neutrophils # Seg Neutrophils # Man Lymphocytes # (Manual) PT INR APTT Heparin Anti-Xa Level POC ABG pH POC ABG pCO2 POC ABG pO2 Sodium Potassium Chloride Carbon Dioxide BUN Creatinine Glucose POC Glucose 164 H 440 H > 500 H Hemoglobin A1c Lactic Acid Calcium Phosphorus AST Alkaline Phosphatase NT-Pro-B Natriuret Pep Total Protein Albumin Urine WBC (Auto) Crossmatch 10/07/18 10/07/18 10/07/18 20:28 21:53 22:08 WBC RBC Hgb Hct MCH RDW Plt Count Lymph % (Auto) [place] % (Auto) Lymph # [place] # Eos # Baso # Seg Neutrophils % Seg Neuts % (Manual) Lymphocytes % (Manual) Seg Neutrophils # Seg Neutrophils # Man Lymphocytes # (Manual) PT INR APTT Heparin Anti-Xa Level POC ABG pH POC ABG pCO2 POC ABG pO2 Sodium 136 L D Potassium 6.4 H* D Chloride Carbon Dioxide 10 L D BUN 30 H Creatinine 2.0 H Glucose 544 H* POC Glucose 483 H > 500 H Hemoglobin A1c Lactic Acid Calcium 7.0 L D Phosphorus AST Alkaline Phosphatase NT-Pro-B Natriuret Pep Total Protein Albumin Urine WBC (Auto) Crossmatch 10/07/18 10/07/18 10/07/18 22:08 22:08 22:56 WBC RBC Hgb Hct MCH RDW Plt Count Lymph % (Auto) [place] % (Auto) Lymph # [place] # Eos # Baso # Seg Neutrophils % Seg Neuts % (Manual) Lymphocytes % (Manual) Seg Neutrophils # Seg Neutrophils # Man Lymphocytes # (Manual) PT INR APTT Heparin Anti-Xa Level POC ABG pH POC ABG pCO2 POC ABG pO2 Sodium Potassium Chloride Carbon Dioxide BUN Creatinine Glucose POC Glucose 462 H Hemoglobin A1c 10.2 H Lactic Acid Calcium Phosphorus 7.40 H AST Alkaline Phosphatase NT-Pro-B Natriuret Pep Total Protein Albumin Urine WBC (Auto) Crossmatch 10/07/18 10/08/18 10/08/18 23:39 00:58 02:09 WBC RBC Hgb Hct MCH RDW Plt Count Lymph % (Auto) [place] % (Auto) Lymph # [place] # Eos # Baso # Seg Neutrophils % Seg Neuts % (Manual) Lymphocytes % (Manual) Seg Neutrophils # Seg Neutrophils # Man Lymphocytes # (Manual) PT INR APTT Heparin Anti-Xa Level POC ABG pH POC ABG pCO2 POC ABG pO2 Sodium Potassium Chloride Carbon Dioxide BUN Creatinine Glucose POC Glucose 396 H 375 H 285 H Hemoglobin A1c Lactic Acid Calcium Phosphorus AST Alkaline Phosphatase NT-Pro-B Natriuret Pep Total Protein Albumin Urine WBC (Auto) Crossmatch 10/08/18 10/08/18 10/08/18 03:10 03:33 04:05 WBC RBC Hgb Hct MCH RDW Plt Count Lymph % (Auto) [place] % (Auto) Lymph # [place] # Eos # Baso # Seg Neutrophils % Seg Neuts % (Manual) Lymphocytes % (Manual) Seg Neutrophils # Seg Neutrophils # Man Lymphocytes # (Manual) PT INR APTT Heparin Anti-Xa Level POC ABG pH 7.243 L POC ABG pCO2 33.8 L POC ABG pO2 126 H Sodium Potassium 5.3 H Chloride 110.7 H Carbon Dioxide 14 L BUN 33 H Creatinine 2.2 H Glucose 193 H POC Glucose 251 H Hemoglobin A1c Lactic Acid Calcium 7.0 L Phosphorus AST Alkaline Phosphatase 155 H NT-Pro-B Natriuret Pep Total Protein 5.2 L D Albumin 2.6 L Urine WBC (Auto) Crossmatch 10/08/18 10/08/18 10/08/18 04:05 04:05 04:09 WBC 11.8 H RBC 3.32 L Hgb 8.3 L Hct 27.5 L D MCH 25 L RDW 22.0 H Plt Count Lymph % (Auto) 6.8 L [place] % (Auto) 12.0 H Lymph # 0.8 L [place] # 1.4 H Eos # Baso # Seg Neutrophils % 80.6 H Seg Neuts % (Manual) Lymphocytes % (Manual) Seg Neutrophils # 9.5 H Seg Neutrophils # Man Lymphocytes # (Manual) PT INR APTT Heparin Anti-Xa Level POC ABG pH POC ABG pCO2 POC ABG pO2 Sodium Potassium Chloride Carbon Dioxide BUN Creatinine Glucose POC Glucose 175 H Hemoglobin A1c Lactic Acid 3.70 H* Calcium Phosphorus AST Alkaline Phosphatase NT-Pro-B Natriuret Pep Total Protein Albumin Urine WBC (Auto) Crossmatch 10/08/18 10/08/18 10/08/18 05:07 06:05 07:14 WBC RBC Hgb Hct MCH RDW Plt Count Lymph % (Auto) [place] % (Auto) Lymph # [place] # Eos # Baso # Seg Neutrophils % Seg Neuts % (Manual) Lymphocytes % (Manual) Seg Neutrophils # Seg Neutrophils # Man Lymphocytes # (Manual) PT INR APTT Heparin Anti-Xa Level POC ABG pH POC ABG pCO2 POC ABG pO2 Sodium Potassium Chloride Carbon Dioxide BUN Creatinine Glucose POC Glucose 125 H 122 H 147 H Hemoglobin A1c Lactic Acid Calcium Phosphorus AST Alkaline Phosphatase NT-Pro-B Natriuret Pep Total Protein Albumin Urine WBC (Auto) Crossmatch 10/08/18 10/08/18 10/08/18 07:22 08:09 08:47 WBC RBC Hgb Hct MCH RDW Plt Count Lymph % (Auto) [place] % (Auto) Lymph # [place] # Eos # Baso # Seg Neutrophils % Seg Neuts % (Manual) Lymphocytes % (Manual) Seg Neutrophils # Seg Neutrophils # Man Lymphocytes # (Manual) PT INR APTT Heparin Anti-Xa Level POC ABG pH POC ABG pCO2 POC ABG pO2 Sodium Potassium 5.2 H Chloride 112.4 H Carbon Dioxide 17 L BUN 32 H Creatinine 2.1 H Glucose 148 H POC Glucose 134 H 148 H Hemoglobin A1c Lactic Acid Calcium 6.6 L Phosphorus AST Alkaline Phosphatase NT-Pro-B Natriuret Pep Total Protein Albumin Urine WBC (Auto) Crossmatch 10/08/18 10/08/1810/08/19 10:21 13:29 14:21 WBC RBC Hgb Hct MCH RDW Plt Count Lymph % (Auto) [place] % (Auto) Lymph # [place] # Eos # Baso # Seg Neutrophils % Seg Neuts % (Manual) Lymphocytes % (Manual) Seg Neutrophils # Seg Neutrophils # Man Lymphocytes # (Manual) PT INR APTT Heparin Anti-Xa Level POC ABG pH POC ABG pCO2 POC ABG pO2 Sodium Potassium Chloride Carbon Dioxide BUN Creatinine Glucose POC Glucose 115 H 109 H 118 H Hemoglobin A1c Lactic Acid Calcium Phosphorus AST Alkaline Phosphatase NT-Pro-B Natriuret Pep Total Protein Albumin Urine WBC (Auto) Crossmatch 10/08/18 10/08/18 10/08/18 15:27 17:00 17:00 WBC 11.3 H RBC 3.21 L Hgb 7.9 L Hct 25.7 L MCH 25 L RDW 21.8 H Plt Count Lymph % (Auto) 8.5 L [place] % (Auto) 7.7 H Lymph # 1.0 L [place] # 0.9 H Eos # Baso # Seg Neutrophils % 82.8 H Seg Neuts % (Manual) Lymphocytes % (Manual) Seg Neutrophils # 9.3 H Seg Neutrophils # Man Lymphocytes # (Manual) PT INR APTT Heparin Anti-Xa Level POC ABG pH POC ABG pCO2 POC ABG pO2 Sodium Potassium Chloride Carbon Dioxide BUN Creatinine Glucose POC Glucose 129 H Hemoglobin A1c Lactic Acid Calcium Phosphorus AST Alkaline Phosphatase NT-Pro-B Natriuret Pep 3097 H Total Protein Albumin Urine WBC (Auto) Crossmatch 10/08/18 10/08/18 10/08/18 17:07 17:12 18:22 WBC RBC Hgb Hct MCH RDW Plt Count Lymph % (Auto) [place] % (Auto) Lymph # [place] # Eos # Baso # Seg Neutrophils % Seg Neuts % (Manual) Lymphocytes % (Manual) Seg Neutrophils # Seg Neutrophils # Man Lymphocytes # (Manual) PT INR APTT Heparin Anti-Xa Level POC ABG pH 7.337 L POC ABG pCO2 32.0 L POC ABG pO2 130 H Sodium Potassium Chloride 115.5 H Carbon Dioxide 17 L BUN 30 H Creatinine 1.9 H Glucose 103 H POC Glucose 119 H Hemoglobin A1c Lactic Acid Calcium 6.9 L Phosphorus AST Alkaline Phosphatase NT-Pro-B Natriuret Pep Total Protein Albumin Urine WBC (Auto) Crossmatch 10/08/18 10/08/18 10/09/18 20:09 20:57 01:10 WBC RBC Hgb Hct MCH RDW Plt Count Lymph % (Auto) [place] % (Auto) Lymph # [place] # Eos # Baso # Seg Neutrophils % Seg Neuts % (Manual) Lymphocytes % (Manual) Seg Neutrophils # Seg Neutrophils # Man Lymphocytes # (Manual) PT INR APTT Heparin Anti-Xa Level POC ABG pH POC ABG pCO2 POC ABG pO2 Sodium Potassium Chloride 114.3 H 113.7 H Carbon Dioxide 15 L 14 L BUN 29 H 29 H Creatinine 2.1 H 2.0 H Glucose 132 H 39 L* POC Glucose 150 H Hemoglobin A1c Lactic Acid Calcium 6.7 L 6.9 L Phosphorus AST Alkaline Phosphatase NT-Pro-B Natriuret Pep Total Protein Albumin Urine WBC (Auto) Crossmatch 10/09/18 10/09/18 10/09/18 01:10 01:43 03:20 WBC RBC Hgb Hct MCH RDW Plt Count Lymph % (Auto) [place] % (Auto) Lymph # [place] # Eos # Baso # Seg Neutrophils % Seg Neuts % (Manual) Lymphocytes % (Manual) Seg Neutrophils # Seg Neutrophils # Man Lymphocytes # (Manual) PT INR APTT Heparin Anti-Xa Level POC ABG pH POC ABG pCO2 POC ABG pO2 Sodium Potassium Chloride Carbon Dioxide BUN Creatinine Glucose POC Glucose < 40 L < 40 L Hemoglobin A1c Lactic Acid Calcium Phosphorus AST Alkaline Phosphatase NT-Pro-B Natriuret Pep 2865 H Total Protein Albumin Urine WBC (Auto) Crossmatch 10/09/18 10/09/18 10/09/18 04:23 05:03 05:25 WBC RBC Hgb Hct MCH RDW Plt Count Lymph % (Auto) [place] % (Auto) Lymph # [place] # Eos # Baso # Seg Neutrophils % Seg Neuts % (Manual) Lymphocytes % (Manual) Seg Neutrophils # Seg Neutrophils # Man Lymphocytes # (Manual) PT INR APTT Heparin Anti-Xa Level POC ABG pH POC ABG pCO2 30.6 L 32.3 L POC ABG pO2 118 H Sodium Potassium Chloride Carbon Dioxide BUN Creatinine Glucose POC Glucose 148 H Hemoglobin A1c Lactic Acid Calcium Phosphorus AST Alkaline Phosphatase NT-Pro-B Natriuret Pep Total Protein Albumin Urine WBC (Auto) Crossmatch 10/09/18 10/09/18 10/09/18 06:00 08:34 09:58 WBC RBC Hgb Hct MCH RDW Plt Count Lymph % (Auto) [place] % (Auto) Lymph # [place] # Eos # Baso # Seg Neutrophils % Seg Neuts % (Manual) Lymphocytes % (Manual) Seg Neutrophils # Seg Neutrophils # Man Lymphocytes # (Manual) PT INR APTT Heparin Anti-Xa Level POC ABG pH POC ABG pCO2 POC ABG pO2 Sodium Potassium Chloride Carbon Dioxide BUN Creatinine Glucose POC Glucose 173 H 196 H 183 H Hemoglobin A1c Lactic Acid Calcium Phosphorus AST Alkaline Phosphatase NT-Pro-B Natriuret Pep Total Protein Albumin Urine WBC (Auto) Crossmatch 10/09/18 10/09/18 10/09/18 12:25 12:46 18:16 WBC RBC Hgb Hct MCH RDW Plt Count Lymph % (Auto) [place] % (Auto) Lymph # [place] # Eos # Baso # Seg Neutrophils % Seg Neuts % (Manual) Lymphocytes % (Manual) Seg Neutrophils # Seg Neutrophils # Man Lymphocytes # (Manual) PT INR APTT Heparin Anti-Xa Level POC ABG pH POC ABG pCO2 POC ABG pO2 Sodium Potassium Chloride 110.3 H Carbon Dioxide 16 L BUN 24 H Creatinine 1.8 H Glucose 207 H POC Glucose 208 H 177 H Hemoglobin A1c Lactic Acid Calcium 6.9 L Phosphorus AST Alkaline Phosphatase NT-Pro-B Natriuret Pep Total Protein Albumin Urine WBC (Auto) Crossmatch 10/09/18 10/10/18 10/10/18 21:11 00:11 05:41 WBC RBC Hgb Hct MCH RDW Plt Count Lymph % (Auto) [place] % (Auto) Lymph # [place] # Eos # Baso # Seg Neutrophils % Seg Neuts % (Manual) Lymphocytes % (Manual) Seg Neutrophils # Seg Neutrophils # Man Lymphocytes # (Manual) PT INR APTT Heparin Anti-Xa Level POC ABG pH POC ABG pCO2 POC ABG pO2 Sodium Potassium Chloride Carbon Dioxide BUN Creatinine Glucose POC Glucose 124 H 156 H 42 L Hemoglobin A1c Lactic Acid Calcium Phosphorus AST Alkaline Phosphatase NT-Pro-B Natriuret Pep Total Protein Albumin Urine WBC (Auto) Crossmatch 10/10/18 10/10/18 10/10/18 05:45 07:28 12:07 WBC RBC Hgb Hct MCH RDW Plt Count Lymph % (Auto) [place] % (Auto) Lymph # [place] # Eos # Baso # Seg Neutrophils % Seg Neuts % (Manual) Lymphocytes % (Manual) Seg Neutrophils # Seg Neutrophils # Man Lymphocytes # (Manual) PT INR APTT Heparin Anti-Xa Level POC ABG pH POC ABG pCO2 POC ABG pO2 Sodium 146 H D Potassium Chloride 111.2 H Carbon Dioxide BUN 21 H Creatinine 1.8 H Glucose 44 L POC Glucose 114 H 49 L Hemoglobin A1c Lactic Acid Calcium 7.4 L Phosphorus AST Alkaline Phosphatase NT-Pro-B Natriuret Pep Total Protein Albumin Urine WBC (Auto) Crossmatch 10/10/18 10/10/18 10/10/18 12:37 18:02 20:47 WBC RBC Hgb Hct MCH RDW Plt Count Lymph % (Auto) [place] % (Auto) Lymph # [place] # Eos # Baso # Seg Neutrophils % Seg Neuts % (Manual) Lymphocytes % (Manual) Seg Neutrophils # Seg Neutrophils # Man Lymphocytes # (Manual) PT INR APTT Heparin Anti-Xa Level POC ABG pH POC ABG pCO2 POC ABG pO2 Sodium Potassium Chloride Carbon Dioxide BUN Creatinine Glucose POC Glucose 142 H 49 L 162 H Hemoglobin A1c Lactic Acid Calcium Phosphorus AST Alkaline Phosphatase NT-Pro-B Natriuret Pep Total Protein Albumin Urine WBC (Auto) Crossmatch 10/10/18 10/10/18 10/10/18 21:45 22:19 23:50 WBC RBC Hgb Hct MCH RDW Plt Count Lymph % (Auto) [place] % (Auto) Lymph # [place] # Eos # Baso # Seg Neutrophils % Seg Neuts % (Manual) Lymphocytes % (Manual) Seg Neutrophils # Seg Neutrophils # Man Lymphocytes # (Manual) PT INR APTT Heparin Anti-Xa Level POC ABG pH 7.334 L POC ABG pCO2 47.0 H POC ABG pO2 53 L 79 L Sodium Potassium Chloride Carbon Dioxide BUN Creatinine Glucose POC Glucose 185 H Hemoglobin A1c Lactic Acid Calcium Phosphorus AST Alkaline Phosphatase NT-Pro-B Natriuret Pep Total Protein Albumin Urine WBC (Auto) Crossmatch 10/11/18 10/11/18 10/11/18 05:00 06:41 07:17 WBC RBC Hgb Hct MCH RDW Plt Count Lymph % (Auto) [place] % (Auto) Lymph # [place] # Eos # Baso # Seg Neutrophils % Seg Neuts % (Manual) Lymphocytes % (Manual) Seg Neutrophils # Seg Neutrophils # Man Lymphocytes # (Manual) PT INR APTT Heparin Anti-Xa Level POC ABG pH POC ABG pCO2 POC ABG pO2 Sodium Potassium Chloride Carbon Dioxide BUN Creatinine 1.7 H Glucose 43 L POC Glucose 48 L 129 H Hemoglobin A1c Lactic Acid Calcium 7.7 L Phosphorus AST Alkaline Phosphatase NT-Pro-B Natriuret Pep Total Protein Albumin Urine WBC (Auto) Crossmatch 10/11/18 10/11/18 10/11/18 11:14 13:32 14:25 WBC RBC 3.32 L Hgb 8.2 L Hct 26.4 L MCH 25 L RDW 21.6 H Plt Count Lymph % (Auto) [place] % (Auto) Lymph # [place] # Eos # Baso # Seg Neutrophils % Seg Neuts % (Manual) Lymphocytes % (Manual) Seg Neutrophils # Seg Neutrophils # Man Lymphocytes # (Manual) PT 21.7 H INR 1.76 H APTT 50.5 H Heparin Anti-Xa Level POC ABG pH POC ABG pCO2 POC ABG pO2 Sodium Potassium Chloride Carbon Dioxide BUN Creatinine Glucose POC Glucose 138 H Hemoglobin A1c Lactic Acid Calcium Phosphorus AST Alkaline Phosphatase NT-Pro-B Natriuret Pep Total Protein Albumin Urine WBC (Auto) Crossmatch 10/11/18 10/11/18 10/11/18 14:25 15:41 17:31 WBC RBC Hgb Hct MCH RDW Plt Count Lymph % (Auto) [place] % (Auto) Lymph # [place] # Eos # Baso # Seg Neutrophils % Seg Neuts % (Manual) Lymphocytes % (Manual) Seg Neutrophils # Seg Neutrophils # Man Lymphocytes # (Manual) PT 20.6 H INR 1.65 H APTT 54.9 H Heparin Anti-Xa Level POC ABG pH POC ABG pCO2 POC ABG pO2 53 L Sodium Potassium Chloride Carbon Dioxide BUN Creatinine Glucose POC Glucose 133 H Hemoglobin A1c Lactic Acid Calcium Phosphorus AST Alkaline Phosphatase NT-Pro-B Natriuret Pep Total Protein Albumin Urine WBC (Auto) Crossmatch 10/12/18 10/12/18 10/12/18 00:30 03:56 04:25 WBC RBC Hgb Hct MCH RDW Plt Count Lymph % (Auto) [place] % (Auto) Lymph # [place] # Eos # Baso # Seg Neutrophils % Seg Neuts % (Manual) Lymphocytes % (Manual) Seg Neutrophils # Seg Neutrophils # Man Lymphocytes # (Manual) PT INR APTT Heparin Anti-Xa Level POC ABG pH 7.514 H POC ABG pCO2 31.2 L POC ABG pO2 Sodium Potassium Chloride Carbon Dioxide BUN Creatinine 1.6 H Glucose 287 H POC Glucose 353 H Hemoglobin A1c Lactic Acid Calcium 8.0 L Phosphorus AST Alkaline Phosphatase NT-Pro-B Natriuret Pep Total Protein Albumin Urine WBC (Auto) Crossmatch 10/12/18 10/12/18 10/12/18 04:49 12:13 17:53 WBC RBC Hgb Hct MCH RDW Plt Count Lymph % (Auto) [place] % (Auto) Lymph # [place] # Eos # Baso # Seg Neutrophils % Seg Neuts % (Manual) Lymphocytes % (Manual) Seg Neutrophils # Seg Neutrophils # Man Lymphocytes # (Manual) PT INR APTT Heparin Anti-Xa Level POC ABG pH POC ABG pCO2 POC ABG pO2 Sodium Potassium Chloride Carbon Dioxide BUN Creatinine Glucose POC Glucose 297 H 290 H 211 H Hemoglobin A1c Lactic Acid Calcium Phosphorus AST Alkaline Phosphatase NT-Pro-B Natriuret Pep Total Protein Albumin Urine WBC (Auto) Crossmatch 10/12/18 10/12/18 10/13/18 18:57 21:35 04:50 WBC 11.8 H RBC 3.08 L Hgb 7.4 L Hct 24.2 L MCH 24 L RDW 21.5 H Plt Count Lymph % (Auto) [place] % (Auto) Lymph # [place] # Eos # Baso # Seg Neutrophils % Seg Neuts % (Manual) Lymphocytes % (Manual) Seg Neutrophils # Seg Neutrophils # Man Lymphocytes # (Manual) PT INR APTT Heparin Anti-Xa Level 1.74 H POC ABG pH 7.497 H POC ABG pCO2 33.2 L POC ABG pO2 71 L Sodium Potassium Chloride Carbon Dioxide BUN Creatinine Glucose POC Glucose Hemoglobin A1c Lactic Acid Calcium Phosphorus AST Alkaline Phosphatase NT-Pro-B Natriuret Pep Total Protein Albumin Urine WBC (Auto) Crossmatch 10/13/18 10/13/18 10/13/18 05:25 05:25 05:37 WBC 12.1 H RBC 3.02 L Hgb 7.4 L Hct 23.7 L MCH 25 L RDW 21.0 H Plt Count Lymph % (Auto) 9.6 L [place] % (Auto) 10.0 H Lymph # [place] # 1.2 H Eos # Baso # Seg Neutrophils % 76.2 H Seg Neuts % (Manual) Lymphocytes % (Manual) Seg Neutrophils # 9.2 H Seg Neutrophils # Man Lymphocytes # (Manual) PT INR APTT Heparin Anti-Xa Level POC ABG pH POC ABG pCO2 POC ABG pO2 Sodium Potassium Chloride Carbon Dioxide BUN Creatinine 1.6 H Glucose 175 H POC Glucose 165 H Hemoglobin A1c Lactic Acid Calcium 8.3 L Phosphorus AST Alkaline Phosphatase NT-Pro-B Natriuret Pep Total Protein Albumin Urine WBC (Auto) Crossmatch 10/13/18 10/13/18 10/13/18 06:45 11:12 17:19 WBC RBC Hgb Hct MCH RDW Plt Count Lymph % (Auto) [place] % (Auto) Lymph # [place] # Eos # Baso # Seg Neutrophils % Seg Neuts % (Manual) Lymphocytes % (Manual) Seg Neutrophils # Seg Neutrophils # Man Lymphocytes # (Manual) PT 17.4 H INR 1.34 H APTT Heparin Anti-Xa Level POC ABG pH POC ABG pCO2 POC ABG pO2 Sodium Potassium Chloride Carbon Dioxide BUN Creatinine Glucose POC Glucose 223 H 129 H Hemoglobin A1c Lactic Acid Calcium Phosphorus AST Alkaline Phosphatase NT-Pro-B Natriuret Pep Total Protein Albumin Urine WBC (Auto) Crossmatch 10/13/18 10/14/18 10/14/18 23:39 05:01 06:14 WBC RBC Hgb Hct MCH RDW Plt Count Lymph % (Auto) [place] % (Auto) Lymph # [place] # Eos # Baso # Seg Neutrophils % Seg Neuts % (Manual) Lymphocytes % (Manual) Seg Neutrophils # Seg Neutrophils # Man Lymphocytes # (Manual) PT INR APTT Heparin Anti-Xa Level POC ABG pH POC ABG pCO2 POC ABG pO2 Sodium Potassium Chloride Carbon Dioxide BUN Creatinine 1.5 H Glucose 264 H POC Glucose 171 H 226 H Hemoglobin A1c Lactic Acid Calcium 8.0 L Phosphorus AST Alkaline Phosphatase NT-Pro-B Natriuret Pep Total Protein Albumin Urine WBC (Auto) Crossmatch 10/14/18 10/14/18 10/14/18 06:14 12:24 19:33 WBC RBC Hgb Hct MCH RDW Plt Count Lymph % (Auto) [place] % (Auto) Lymph # [place] # Eos # Baso # Seg Neutrophils % Seg Neuts % (Manual) Lymphocytes % (Manual) Seg Neutrophils # Seg Neutrophils # Man Lymphocytes # (Manual) PT 22.1 H INR 1.80 H APTT Heparin Anti-Xa Level POC ABG pH POC ABG pCO2 POC ABG pO2 Sodium Potassium Chloride Carbon Dioxide BUN Creatinine Glucose POC Glucose 403 H 164 H Hemoglobin A1c Lactic Acid Calcium Phosphorus AST Alkaline Phosphatase NT-Pro-B Natriuret Pep Total Protein Albumin Urine WBC (Auto) Crossmatch 10/15/18 10/15/18 10/15/18 00:29 06:03 07:00 WBC RBC Hgb Hct MCH RDW Plt Count Lymph % (Auto) [place] % (Auto) Lymph # [place] # Eos # Baso # Seg Neutrophils % Seg Neuts % (Manual) Lymphocytes % (Manual) Seg Neutrophils # Seg Neutrophils # Man Lymphocytes # (Manual) PT INR APTT Heparin Anti-Xa Level POC ABG pH POC ABG pCO2 POC ABG pO2 Sodium Potassium Chloride Carbon Dioxide BUN 20 H Creatinine 1.7 H Glucose 308 H POC Glucose 237 H 282 H Hemoglobin A1c Lactic Acid Calcium 7.6 L Phosphorus AST Alkaline Phosphatase NT-Pro-B Natriuret Pep Total Protein Albumin Urine WBC (Auto) Crossmatch 10/15/18 10/15/18 10/15/18 07:00 08:03 10:27 WBC RBC Hgb 5.8 L* Hct 18.5 L* MCH RDW Plt Count Lymph % (Auto) [place] % (Auto) Lymph # [place] # Eos # Baso # Seg Neutrophils % Seg Neuts % (Manual) Lymphocytes % (Manual) Seg Neutrophils # Seg Neutrophils # Man Lymphocytes # (Manual) PT 46.1 H INR 4.52 H APTT Heparin Anti-Xa Level 0.25 L POC ABG pH POC ABG pCO2 POC ABG pO2 Sodium Potassium Chloride Carbon Dioxide BUN Creatinine Glucose POC Glucose Hemoglobin A1c Lactic Acid Calcium Phosphorus AST Alkaline Phosphatase NT-Pro-B Natriuret Pep Total Protein Albumin Urine WBC (Auto) Crossmatch See Detail 10/15/18 10/15/18 10/16/18 14:03 15:30 10:18 WBC RBC Hgb Hct MCH RDW Plt Count Lymph % (Auto) [place] % (Auto) Lymph # [place] # Eos # Baso # Seg Neutrophils % Seg Neuts % (Manual) Lymphocytes % (Manual) Seg Neutrophils # Seg Neutrophils # Man Lymphocytes # (Manual) PT 53.8 H INR 5.48 H* APTT Heparin Anti-Xa Level POC ABG pH POC ABG pCO2 POC ABG pO2 Sodium Potassium Chloride Carbon Dioxide BUN Creatinine Glucose POC Glucose 336 H 259 H Hemoglobin A1c Lactic Acid Calcium Phosphorus AST Alkaline Phosphatase NT-Pro-B Natriuret Pep Total Protein Albumin Urine WBC (Auto) Crossmatch 10/16/18 10/16/18 10/16/18 10:18 10:18 13:03 WBC 14.8 H RBC 3.03 L Hgb 8.2 L Hct 24.9 L D MCH 27 L RDW 19.2 H Plt Count Lymph % (Auto) 5.7 L [place] % (Auto) Lymph # 0.8 L [place] # 1.1 H Eos # Baso # 0.2 H Seg Neutrophils % 84.3 H Seg Neuts % (Manual) Lymphocytes % (Manual) Seg Neutrophils # 12.5 H Seg Neutrophils # Man Lymphocytes # (Manual) PT INR APTT Heparin Anti-Xa Level POC ABG pH POC ABG pCO2 POC ABG pO2 Sodium Potassium Chloride Carbon Dioxide 20 L BUN 21 H Creatinine 1.5 H Glucose 326 H POC Glucose 329 H Hemoglobin A1c Lactic Acid Calcium 7.8 L Phosphorus AST Alkaline Phosphatase NT-Pro-B Natriuret Pep Total Protein Albumin Urine WBC (Auto) Crossmatch 10/16/18 10/17/18 10/17/18 13:27 00:35 05:00 WBC RBC Hgb Hct MCH RDW Plt Count Lymph % (Auto) [place] % (Auto) Lymph # [place] # Eos # Baso # Seg Neutrophils % Seg Neuts % (Manual) Lymphocytes % (Manual) Seg Neutrophils # Seg Neutrophils # Man Lymphocytes # (Manual) PT 55.4 H 60.2 H INR 5.68 H* 6.30 H* APTT Heparin Anti-Xa Level POC ABG pH POC ABG pCO2 POC ABG pO2 Sodium Potassium Chloride Carbon Dioxide BUN Creatinine Glucose POC Glucose 407 H Hemoglobin A1c Lactic Acid Calcium Phosphorus AST Alkaline Phosphatase NT-Pro-B Natriuret Pep Total Protein Albumin Urine WBC (Auto) Crossmatch 10/17/18 10/17/18 10/17/18 05:00 05:00 05:29 WBC 11.6 H RBC 2.99 L Hgb 8.0 L Hct 24.2 L MCH 27 L RDW 19.2 H Plt Count Lymph % (Auto) [place] % (Auto) Lymph # [place] # Eos # Baso # Seg Neutrophils % Seg Neuts % (Manual) 87.0 H Lymphocytes % (Manual) 9.0 L Seg Neutrophils # Seg Neutrophils # Man 10.1 H Lymphocytes # (Manual) 1.0 L PT INR APTT Heparin Anti-Xa Level POC ABG pH POC ABG pCO2 POC ABG pO2 Sodium Potassium 3.4 L D Chloride Carbon Dioxide BUN Creatinine 1.4 H Glucose 170 H POC Glucose 156 H Hemoglobin A1c Lactic Acid Calcium 7.6 L Phosphorus AST Alkaline Phosphatase NT-Pro-B Natriuret Pep Total Protein 5.4 L Albumin 2.2 L Urine WBC (Auto) Crossmatch 10/17/18 10/17/18 10/18/18 11:59 17:06 00:21 WBC RBC Hgb Hct MCH RDW Plt Count Lymph % (Auto) [place] % (Auto) Lymph # [place] # Eos # Baso # Seg Neutrophils % Seg Neuts % (Manual) Lymphocytes % (Manual) Seg Neutrophils # Seg Neutrophils # Man Lymphocytes # (Manual) PT INR APTT Heparin Anti-Xa Level POC ABG pH POC ABG pCO2 POC ABG pO2 Sodium Potassium Chloride Carbon Dioxide BUN Creatinine Glucose POC Glucose 389 H 151 H 355 H Hemoglobin A1c Lactic Acid Calcium Phosphorus AST Alkaline Phosphatase NT-Pro-B Natriuret Pep Total Protein Albumin Urine WBC (Auto) Crossmatch 10/18/18 10/18/18 10/18/18 04:17 04:17 04:17 WBC RBC 3.01 L Hgb 8.1 L Hct 24.6 L MCH 27 L RDW 19.7 H Plt Count Lymph % (Auto) 12.7 L [place] % (Auto) Lymph # [place] # Eos # Baso # Seg Neutrophils % 76.3 H Seg Neuts % (Manual) Lymphocytes % (Manual) Seg Neutrophils # 8.2 H Seg Neutrophils # Man Lymphocytes # (Manual) PT 39.5 H INR 3.72 H APTT Heparin Anti-Xa Level POC ABG pH POC ABG pCO2 POC ABG pO2 Sodium Potassium 3.5 L Chloride Carbon Dioxide BUN Creatinine 1.5 H Glucose 115 H POC Glucose Hemoglobin A1c Lactic Acid Calcium 7.4 L Phosphorus AST Alkaline Phosphatase NT-Pro-B Natriuret Pep Total Protein Albumin Urine WBC (Auto) Crossmatch 10/18/18 10/18/18 10/18/18 06:45 13:39 17:12 WBC RBC Hgb Hct MCH RDW Plt Count Lymph % (Auto) [place] % (Auto) Lymph # [place] # Eos # Baso # Seg Neutrophils % Seg Neuts % (Manual) Lymphocytes % (Manual) Seg Neutrophils # Seg Neutrophils # Man Lymphocytes # (Manual) PT INR APTT Heparin Anti-Xa Level POC ABG pH POC ABG pCO2 POC ABG pO2 Sodium Potassium Chloride Carbon Dioxide BUN Creatinine Glucose POC Glucose 170 H 415 H 377 H Hemoglobin A1c Lactic Acid Calcium Phosphorus AST Alkaline Phosphatase NT-Pro-B Natriuret Pep Total Protein Albumin Urine WBC (Auto) Crossmatch 10/19/18 10/19/18 10/19/18 00:48 05:35 05:52 WBC RBC 2.84 L Hgb 7.7 L Hct 23.2 L MCH 27 L RDW 19.8 H Plt Count Lymph % (Auto) 11.0 L [place] % (Auto) Lymph # 1.1 L [place] # Eos # Baso # Seg Neutrophils % 78.5 H Seg Neuts % (Manual) Lymphocytes % (Manual) Seg Neutrophils # 8.1 H Seg Neutrophils # Man Lymphocytes # (Manual) PT INR APTT Heparin Anti-Xa Level POC ABG pH POC ABG pCO2 POC ABG pO2 Sodium Potassium Chloride Carbon Dioxide BUN Creatinine Glucose POC Glucose 308 H 116 H Hemoglobin A1c Lactic Acid Calcium Phosphorus AST Alkaline Phosphatase NT-Pro-B Natriuret Pep Total Protein Albumin Urine WBC (Auto) Crossmatch 10/19/18 10/19/18 10/19/18 05:52 07:12 09:41 WBC RBC Hgb 8.1 L Hct 24.6 L MCH RDW Plt Count Lymph % (Auto) [place] % (Auto) Lymph # [place] # Eos # Baso # Seg Neutrophils % Seg Neuts % (Manual) Lymphocytes % (Manual) Seg Neutrophils # Seg Neutrophils # Man Lymphocytes # (Manual) PT 18.1 H INR 1.40 H APTT Heparin Anti-Xa Level POC ABG pH POC ABG pCO2 POC ABG pO2 Sodium Potassium Chloride Carbon Dioxide BUN 21 H Creatinine 1.6 H Glucose 128 H POC Glucose Hemoglobin A1c Lactic Acid Calcium 7.7 L Phosphorus AST Alkaline Phosphatase NT-Pro-B Natriuret Pep Total Protein Albumin Urine WBC (Auto) Crossmatch 10/19/18 10/19/18 10/19/18 09:41 11:46 12:26 WBC RBC Hgb Hct MCH RDW Plt Count Lymph % (Auto) [place] % (Auto) Lymph # [place] # Eos # Baso # Seg Neutrophils % Seg Neuts % (Manual) Lymphocytes % (Manual) Seg Neutrophils # Seg Neutrophils # Man Lymphocytes # (Manual) PT 17.7 H INR 1.36 H APTT Heparin Anti-Xa Level 0.19 L POC ABG pH POC ABG pCO2 POC ABG pO2 Sodium Potassium Chloride Carbon Dioxide BUN Creatinine Glucose POC Glucose 212 H Hemoglobin A1c Lactic Acid Calcium Phosphorus AST Alkaline Phosphatase NT-Pro-B Natriuret Pep Total Protein Albumin Urine WBC (Auto) Crossmatch 10/19/18 10/19/18 10/19/18 16:12 19:56 22:09 WBC RBC Hgb Hct MCH RDW Plt Count Lymph % (Auto) [place] % (Auto) Lymph # [place] # Eos # Baso # Seg Neutrophils % Seg Neuts % (Manual) Lymphocytes % (Manual) Seg Neutrophils # Seg Neutrophils # Man Lymphocytes # (Manual) PT INR APTT Heparin Anti-Xa Level POC ABG pH 7.458 H POC ABG pCO2 POC ABG pO2 63 L Sodium Potassium Chloride Carbon Dioxide BUN Creatinine Glucose POC Glucose 260 H 216 H Hemoglobin A1c Lactic Acid Calcium Phosphorus AST Alkaline Phosphatase NT-Pro-B Natriuret Pep Total Protein Albumin Urine WBC (Auto) Crossmatch 10/20/18 10/20/18 10/20/18 03:00 03:00 03:00 WBC 14.8 H RBC 2.81 L Hgb 7.5 L Hct 23.1 L MCH 27 L RDW 20.0 H Plt Count Lymph % (Auto) 11.5 L [place] % (Auto) Lymph # [place] # 0.9 H Eos # Baso # Seg Neutrophils % 79.7 H Seg Neuts % (Manual) Lymphocytes % (Manual) Seg Neutrophils # 11.8 H Seg Neutrophils # Man Lymphocytes # (Manual) PT 16.9 H INR 1.29 H APTT Heparin Anti-Xa Level 0.24 L POC ABG pH POC ABG pCO2 POC ABG pO2 Sodium Potassium Chloride 97.8 L Carbon Dioxide BUN 20 H Creatinine 1.5 H Glucose 206 H POC Glucose Hemoglobin A1c Lactic Acid Calcium 7.8 L Phosphorus AST Alkaline Phosphatase NT-Pro-B Natriuret Pep Total Protein Albumin Urine WBC (Auto) Crossmatch 10/20/18 10/20/18 10/20/18 06:59 10:20 10:59 WBC RBC Hgb Hct MCH RDW Plt Count Lymph % (Auto) [place] % (Auto) Lymph # [place] # Eos # Baso # Seg Neutrophils % Seg Neuts % (Manual) Lymphocytes % (Manual) Seg Neutrophils # Seg Neutrophils # Man Lymphocytes # (Manual) PT 15.5 H INR 1.16 H APTT Heparin Anti-Xa Level < 0.10 L POC ABG pH POC ABG pCO2 POC ABG pO2 Sodium Potassium Chloride Carbon Dioxide BUN Creatinine Glucose POC Glucose 348 H 227 H Hemoglobin A1c Lactic Acid Calcium Phosphorus AST Alkaline Phosphatase NT-Pro-B Natriuret Pep Total Protein Albumin Urine WBC (Auto) Crossmatch 10/20/18 10/20/18 10/21/18 16:15 17:14 00:53 WBC RBC Hgb Hct MCH RDW Plt Count Lymph % (Auto) [place] % (Auto) Lymph # [place] # Eos # Baso # Seg Neutrophils % Seg Neuts % (Manual) Lymphocytes % (Manual) Seg Neutrophils # Seg Neutrophils # Man Lymphocytes # (Manual) PT INR APTT Heparin Anti-Xa Level 0.24 L POC ABG pH POC ABG pCO2 POC ABG pO2 Sodium Potassium Chloride Carbon Dioxide BUN Creatinine Glucose POC Glucose 279 H 136 H Hemoglobin A1c Lactic Acid Calcium Phosphorus AST Alkaline Phosphatase NT-Pro-B Natriuret Pep Total Protein Albumin Urine WBC (Auto) Crossmatch 10/21/18 10/21/18 10/21/18 05:45 05:45 05:45 WBC 15.8 H RBC 2.79 L Hgb 7.5 L Hct 22.9 L MCH 27 L RDW 19.8 H Plt Count Lymph % (Auto) 7.2 L [place] % (Auto) Lymph # 1.1 L [place] # Eos # Baso # Seg Neutrophils % 85.7 H Seg Neuts % (Manual) Lymphocytes % (Manual) Seg Neutrophils # 13.5 H Seg Neutrophils # Man Lymphocytes # (Manual) PT 16.9 H INR 1.29 H APTT Heparin Anti-Xa Level POC ABG pH POC ABG pCO2 POC ABG pO2 Sodium Potassium Chloride Carbon Dioxide BUN 18 H Creatinine 1.4 H Glucose 339 H POC Glucose Hemoglobin A1c Lactic Acid Calcium 8.3 L Phosphorus AST Alkaline Phosphatase NT-Pro-B Natriuret Pep Total Protein Albumin Urine WBC (Auto) Crossmatch 10/21/18 10/21/18 10/21/18 08:00 10:13 11:00 WBC RBC Hgb Hct MCH RDW Plt Count Lymph % (Auto) [place] % (Auto) Lymph # [place] # Eos # Baso # Seg Neutrophils % Seg Neuts % (Manual) Lymphocytes % (Manual) Seg Neutrophils # Seg Neutrophils # Man Lymphocytes # (Manual) PT INR APTT Heparin Anti-Xa Level POC ABG pH POC ABG pCO2 POC ABG pO2 Sodium Potassium Chloride Carbon Dioxide BUN Creatinine Glucose POC Glucose 398 H 295 H Hemoglobin A1c Lactic Acid Calcium Phosphorus AST Alkaline Phosphatase NT-Pro-B Natriuret Pep Total Protein Albumin Urine WBC (Auto) 125.0 H Crossmatch 10/21/18 10/21/18 10/21/18 11:18 17:20 17:52 WBC RBC Hgb Hct MCH RDW Plt Count Lymph % (Auto) [place] % (Auto) Lymph # [place] # Eos # Baso # Seg Neutrophils % Seg Neuts % (Manual) Lymphocytes % (Manual) Seg Neutrophils # Seg Neutrophils # Man Lymphocytes # (Manual) PT 17.2 H INR 1.32 H APTT 40.0 H Heparin Anti-Xa Level POC ABG pH POC ABG pCO2 POC ABG pO2 Sodium Potassium Chloride Carbon Dioxide BUN Creatinine Glucose POC Glucose 235 H 271 H Hemoglobin A1c Lactic Acid Calcium Phosphorus AST Alkaline Phosphatase NT-Pro-B Natriuret Pep Total Protein Albumin Urine WBC (Auto) Crossmatch 10/21/18 10/22/18 10/22/18 23:41 00:47 04:39 WBC 16.1 H RBC 2.69 L Hgb 6.7 L 7.3 L Hct 19.8 L* 22.3 L MCH 27 L RDW 20.4 H Plt Count Lymph % (Auto) 6.9 L [place] % (Auto) Lymph # 1.1 L [place] # 1.0 H Eos # Baso # Seg Neutrophils % 85.3 H Seg Neuts % (Manual) Lymphocytes % (Manual) Seg Neutrophils # 13.8 H Seg Neutrophils # Man Lymphocytes # (Manual) PT INR APTT Heparin Anti-Xa Level POC ABG pH POC ABG pCO2 POC ABG pO2 Sodium Potassium Chloride Carbon Dioxide BUN Creatinine Glucose POC Glucose 157 H Hemoglobin A1c Lactic Acid Calcium Phosphorus AST Alkaline Phosphatase NT-Pro-B Natriuret Pep Total Protein Albumin Urine WBC (Auto) Crossmatch 10/22/18 10/22/18 10/22/18 04:39 04:39 04:39 WBC RBC Hgb Hct MCH RDW Plt Count Lymph % (Auto) [place] % (Auto) Lymph # [place] # Eos # Baso # Seg Neutrophils % Seg Neuts % (Manual) Lymphocytes % (Manual) Seg Neutrophils # Seg Neutrophils # Man Lymphocytes # (Manual) PT 20.3 H INR 1.62 H APTT Heparin Anti-Xa Level 0.12 L POC ABG pH POC ABG pCO2 POC ABG pO2 Sodium Potassium Chloride Carbon Dioxide BUN 20 H Creatinine 1.7 H Glucose 255 H POC Glucose Hemoglobin A1c Lactic Acid Calcium 8.1 L Phosphorus AST Alkaline Phosphatase NT-Pro-B Natriuret Pep Total Protein Albumin Urine WBC (Auto) Crossmatch See Detail 10/22/18 10/22/18 10/22/18 05:09 11:20 11:20 WBC RBC Hgb 7.4 L Hct 21.9 L MCH RDW Plt Count 457 H Lymph % (Auto) [place] % (Auto) Lymph # [place] # Eos # Baso # Seg Neutrophils % Seg Neuts % (Manual) Lymphocytes % (Manual) Seg Neutrophils # Seg Neutrophils # Man Lymphocytes # (Manual) PT 20.8 H INR 1.67 H APTT 71.0 H* Heparin Anti-Xa Level 0.20 L POC ABG pH POC ABG pCO2 POC ABG pO2 Sodium Potassium Chloride Carbon Dioxide BUN Creatinine Glucose POC Glucose 297 H Hemoglobin A1c Lactic Acid Calcium Phosphorus AST Alkaline Phosphatase NT-Pro-B Natriuret Pep Total Protein Albumin Urine WBC (Auto) Crossmatch 10/22/18 10/22/18 10/22/18 12:09 16:51 17:11 WBC RBC Hgb Hct MCH RDW Plt Count Lymph % (Auto) [place] % (Auto) Lymph # [place] # Eos # Baso # Seg Neutrophils % Seg Neuts % (Manual) Lymphocytes % (Manual) Seg Neutrophils # Seg Neutrophils # Man Lymphocytes # (Manual) PT INR APTT Heparin Anti-Xa Level POC ABG pH POC ABG pCO2 POC ABG pO2 Sodium Potassium Chloride Carbon Dioxide BUN Creatinine Glucose 115 H POC Glucose 125 H < 40 L Hemoglobin A1c Lactic Acid Calcium Phosphorus AST Alkaline Phosphatase NT-Pro-B Natriuret Pep Total Protein Albumin Urine WBC (Auto) Crossmatch 10/22/18 10/23/18 10/23/18 17:13 00:08 06:19 WBC RBC Hgb Hct MCH RDW Plt Count Lymph % (Auto) [place] % (Auto) Lymph # [place] # Eos # Baso # Seg Neutrophils % Seg Neuts % (Manual) Lymphocytes % (Manual) Seg Neutrophils # Seg Neutrophils # Man Lymphocytes # (Manual) PT INR APTT Heparin Anti-Xa Level POC ABG pH POC ABG pCO2 POC ABG pO2 Sodium Potassium Chloride Carbon Dioxide BUN Creatinine Glucose POC Glucose 126 H 192 H 249 H Hemoglobin A1c Lactic Acid Calcium Phosphorus AST Alkaline Phosphatase NT-Pro-B Natriuret Pep Total Protein Albumin Urine WBC (Auto) Crossmatch 10/23/18 10/23/18 10/23/18 07:21 07:21 07:21 WBC 14.4 H RBC 3.29 L Hgb 9.2 L Hct 27.6 L MCH RDW 20.5 H Plt Count 505 H Lymph % (Auto) 8.1 L [place] % (Auto) Lymph # [place] # 1.0 H Eos # 0.6 H Baso # Seg Neutrophils % 80.0 H Seg Neuts % (Manual) Lymphocytes % (Manual) Seg Neutrophils # 11.5 H Seg Neutrophils # Man Lymphocytes # (Manual) PT 21.6 H INR 1.75 H APTT Heparin Anti-Xa Level POC ABG pH POC ABG pCO2 POC ABG pO2 Sodium Potassium Chloride Carbon Dioxide BUN 18 H Creatinine 1.5 H Glucose 308 H POC Glucose Hemoglobin A1c Lactic Acid Calcium Phosphorus AST Alkaline Phosphatase NT-Pro-B Natriuret Pep Total Protein Albumin Urine WBC (Auto) Crossmatch 10/23/18 10/23/18 10/23/18 10:34 11:56 17:07 WBC RBC Hgb Hct MCH RDW Plt Count Lymph % (Auto) [place] % (Auto) Lymph # [place] # Eos # Baso # Seg Neutrophils % Seg Neuts % (Manual) Lymphocytes % (Manual) Seg Neutrophils # Seg Neutrophils # Man Lymphocytes # (Manual) PT INR APTT Heparin Anti-Xa Level POC ABG pH POC ABG pCO2 POC ABG pO2 Sodium Potassium Chloride Carbon Dioxide BUN Creatinine Glucose POC Glucose > 500 H 440 H 387 H Hemoglobin A1c Lactic Acid Calcium Phosphorus AST Alkaline Phosphatase NT-Pro-B Natriuret Pep Total Protein Albumin Urine WBC (Auto) Crossmatch 10/23/18 10/24/18 10/24/18 23:44 06:18 06:39 WBC RBC Hgb 7.9 L Hct 24.3 L MCH RDW Plt Count 522 H Lymph % (Auto) [place] % (Auto) Lymph # [place] # Eos # Baso # Seg Neutrophils % Seg Neuts % (Manual) Lymphocytes % (Manual) Seg Neutrophils # Seg Neutrophils # Man Lymphocytes # (Manual) PT INR APTT Heparin Anti-Xa Level POC ABG pH POC ABG pCO2 POC ABG pO2 Sodium Potassium Chloride Carbon Dioxide BUN Creatinine Glucose POC Glucose 172 H 154 H Hemoglobin A1c Lactic Acid Calcium Phosphorus AST Alkaline Phosphatase NT-Pro-B Natriuret Pep Total Protein Albumin Urine WBC (Auto) Crossmatch 10/24/18 10/24/18 10/24/18 08:05 11:12 18:50 WBC RBC Hgb Hct MCH RDW Plt Count Lymph % (Auto) [place] % (Auto) Lymph # [place] # Eos # Baso # Seg Neutrophils % Seg Neuts % (Manual) Lymphocytes % (Manual) Seg Neutrophils # Seg Neutrophils # Man Lymphocytes # (Manual) PT 20.5 H INR 1.64 H APTT Heparin Anti-Xa Level < 0.10 L POC ABG pH POC ABG pCO2 POC ABG pO2 Sodium Potassium Chloride Carbon Dioxide BUN Creatinine Glucose POC Glucose 203 H Hemoglobin A1c Lactic Acid Calcium Phosphorus AST Alkaline Phosphatase NT-Pro-B Natriuret Pep Total Protein Albumin Urine WBC (Auto) Crossmatch 10/25/18 10/25/18 10/25/18 01:29 06:00 06:00 WBC RBC Hgb 7.8 L Hct 23.9 L MCH RDW Plt Count 569 H Lymph % (Auto) [place] % (Auto) Lymph # [place] # Eos # Baso # Seg Neutrophils % Seg Neuts % (Manual) Lymphocytes % (Manual) Seg Neutrophils # Seg Neutrophils # Man Lymphocytes # (Manual) PT 15.6 H INR 1.17 H APTT Heparin Anti-Xa Level POC ABG pH POC ABG pCO2 POC ABG pO2 Sodium Potassium Chloride Carbon Dioxide BUN Creatinine Glucose POC Glucose 146 H Hemoglobin A1c Lactic Acid Calcium Phosphorus AST Alkaline Phosphatase NT-Pro-B Natriuret Pep Total Protein Albumin Urine WBC (Auto) Crossmatch 10/25/18 10/25/18 10/25/18 06:00 06:11 12:05 WBC RBC Hgb Hct MCH RDW Plt Count Lymph % (Auto) [place] % (Auto) Lymph # [place] # Eos # Baso # Seg Neutrophils % Seg Neuts % (Manual) Lymphocytes % (Manual) Seg Neutrophils # Seg Neutrophils # Man Lymphocytes # (Manual) PT INR APTT Heparin Anti-Xa Level 0.14 L POC ABG pH POC ABG pCO2 POC ABG pO2 Sodium Potassium Chloride Carbon Dioxide BUN Creatinine Glucose POC Glucose 246 H 283 H Hemoglobin A1c Lactic Acid Calcium Phosphorus AST Alkaline Phosphatase NT-Pro-B Natriuret Pep Total Protein Albumin Urine WBC (Auto) Crossmatch 10/25/18 10/25/18 10/26/18 17:53 21:20 04:59 WBC RBC Hgb 8.0 L Hct 24.4 L MCH RDW Plt Count Lymph % (Auto) [place] % (Auto) Lymph # [place] # Eos # Baso # Seg Neutrophils % Seg Neuts % (Manual) Lymphocytes % (Manual) Seg Neutrophils # Seg Neutrophils # Man Lymphocytes # (Manual) PT INR APTT Heparin Anti-Xa Level POC ABG pH POC ABG pCO2 POC ABG pO2 Sodium Potassium Chloride Carbon Dioxide BUN Creatinine Glucose POC Glucose 298 H 336 H Hemoglobin A1c Lactic Acid Calcium Phosphorus AST Alkaline Phosphatase NT-Pro-B Natriuret Pep Total Protein Albumin Urine WBC (Auto) Crossmatch 10/26/18 10/26/18 10/26/18 04:59 07:48 12:33 WBC RBC Hgb Hct MCH RDW Plt Count Lymph % (Auto) [place] % (Auto) Lymph # [place] # Eos # Baso # Seg Neutrophils % Seg Neuts % (Manual) Lymphocytes % (Manual) Seg Neutrophils # Seg Neutrophils # Man Lymphocytes # (Manual) PT INR APTT Heparin Anti-Xa Level 0.21 L 0.19 L POC ABG pH POC ABG pCO2 POC ABG pO2 Sodium Potassium Chloride Carbon Dioxide BUN Creatinine Glucose POC Glucose 339 H Hemoglobin A1c Lactic Acid Calcium Phosphorus AST Alkaline Phosphatase NT-Pro-B Natriuret Pep Total Protein Albumin Urine WBC (Auto) Crossmatch 10/26/18 10/26/18 10/26/18 15:49 15:54 17:36 WBC RBC Hgb Hct MCH RDW Plt Count Lymph % (Auto) [place] % (Auto) Lymph # [place] # Eos # Baso # Seg Neutrophils % Seg Neuts % (Manual) Lymphocytes % (Manual) Seg Neutrophils # Seg Neutrophils # Man Lymphocytes # (Manual) PT INR APTT Heparin Anti-Xa Level POC ABG pH POC ABG pCO2 POC ABG pO2 Sodium Potassium Chloride Carbon Dioxide BUN Creatinine Glucose 49 L POC Glucose < 40 L 226 H Hemoglobin A1c Lactic Acid Calcium Phosphorus AST Alkaline Phosphatase NT-Pro-B Natriuret Pep Total Protein Albumin Urine WBC (Auto) Crossmatch 10/26/18 10/26/18 10/27/18 19:42 21:08 03:00 WBC RBC Hgb 7.9 L Hct 23.8 L MCH RDW Plt Count 629 H Lymph % (Auto) [place] % (Auto) Lymph # [place] # Eos # Baso # Seg Neutrophils % Seg Neuts % (Manual) Lymphocytes % (Manual) Seg Neutrophils # Seg Neutrophils # Man Lymphocytes # (Manual) PT INR APTT Heparin Anti-Xa Level 0.19 L POC ABG pH POC ABG pCO2 POC ABG pO2 Sodium Potassium Chloride Carbon Dioxide BUN Creatinine Glucose POC Glucose 234 H Hemoglobin A1c Lactic Acid Calcium Phosphorus AST Alkaline Phosphatase NT-Pro-B Natriuret Pep Total Protein Albumin Urine WBC (Auto) Crossmatch 10/27/18 10/27/18 10/27/18 08:16 12:30 16:44 WBC RBC Hgb Hct MCH RDW Plt Count Lymph % (Auto) [place] % (Auto) Lymph # [place] # Eos # Baso # Seg Neutrophils % Seg Neuts % (Manual) Lymphocytes % (Manual) Seg Neutrophils # Seg Neutrophils # Man Lymphocytes # (Manual) PT INR APTT Heparin Anti-Xa Level POC ABG pH POC ABG pCO2 POC ABG pO2 Sodium Potassium Chloride Carbon Dioxide BUN Creatinine Glucose POC Glucose 181 H 287 H 339 H Hemoglobin A1c Lactic Acid Calcium Phosphorus AST Alkaline Phosphatase NT-Pro-B Natriuret Pep Total Protein Albumin Urine WBC (Auto) Crossmatch 10/27/18 10/28/18 10/28/18 21:09 03:57 03:57 WBC RBC Hgb 7.7 L Hct 23.5 L MCH RDW Plt Count Lymph % (Auto) [place] % (Auto) Lymph # [place] # Eos # Baso # Seg Neutrophils % Seg Neuts % (Manual) Lymphocytes % (Manual) Seg Neutrophils # Seg Neutrophils # Man Lymphocytes # (Manual) PT 15.1 H INR APTT Heparin Anti-Xa Level 0.29 L POC ABG pH POC ABG pCO2 POC ABG pO2 Sodium Potassium Chloride Carbon Dioxide BUN Creatinine Glucose POC Glucose 120 H Hemoglobin A1c Lactic Acid Calcium Phosphorus AST Alkaline Phosphatase NT-Pro-B Natriuret Pep Total Protein Albumin Urine WBC (Auto) Crossmatch 10/28/18 10/28/18 10/28/18 08:20 11:08 16:32 WBC RBC Hgb Hct MCH RDW Plt Count Lymph % (Auto) [place] % (Auto) Lymph # [place] # Eos # Baso # Seg Neutrophils % Seg Neuts % (Manual) Lymphocytes % (Manual) Seg Neutrophils # Seg Neutrophils # Man Lymphocytes # (Manual) PT INR APTT Heparin Anti-Xa Level POC ABG pH POC ABG pCO2 POC ABG pO2 Sodium Potassium Chloride Carbon Dioxide BUN Creatinine Glucose POC Glucose 308 H 371 H 115 H Hemoglobin A1c Lactic Acid Calcium Phosphorus AST Alkaline Phosphatase NT-Pro-B Natriuret Pep Total Protein Albumin Urine WBC (Auto) Crossmatch 10/28/18 10/29/18 10/29/18 22:01 07:06 07:06 WBC RBC Hgb 7.8 L Hct 23.8 L MCH RDW Plt Count 625 H Lymph % (Auto) [place] % (Auto) Lymph # [place] # Eos # Baso # Seg Neutrophils % Seg Neuts % (Manual) Lymphocytes % (Manual) Seg Neutrophils # Seg Neutrophils # Man Lymphocytes # (Manual) PT 15.4 H INR 1.15 H APTT Heparin Anti-Xa Level POC ABG pH POC ABG pCO2 POC ABG pO2 Sodium Potassium Chloride Carbon Dioxide BUN Creatinine Glucose POC Glucose 287 H Hemoglobin A1c Lactic Acid Calcium Phosphorus AST Alkaline Phosphatase NT-Pro-B Natriuret Pep Total Protein Albumin Urine WBC (Auto) Crossmatch 10/29/18 10/29/18 10/29/18 07:56 11:22 15:19 WBC RBC Hgb Hct MCH RDW Plt Count Lymph % (Auto) [place] % (Auto) Lymph # [place] # Eos # Baso # Seg Neutrophils % Seg Neuts % (Manual) Lymphocytes % (Manual) Seg Neutrophils # Seg Neutrophils # Man Lymphocytes # (Manual) PT INR APTT Heparin Anti-Xa Level 0.16 L POC ABG pH POC ABG pCO2 POC ABG pO2 Sodium Potassium Chloride Carbon Dioxide BUN Creatinine Glucose POC Glucose 199 H 328 H Hemoglobin A1c Lactic Acid Calcium Phosphorus AST Alkaline Phosphatase NT-Pro-B Natriuret Pep Total Protein Albumin Urine WBC (Auto) Crossmatch 10/29/18 10/29/18 10/30/18 15:19 16:26 04:59 WBC RBC Hgb Hct MCH RDW Plt Count Lymph % (Auto) [place] % (Auto) Lymph # [place] # Eos # Baso # Seg Neutrophils % Seg Neuts % (Manual) Lymphocytes % (Manual) Seg Neutrophils # Seg Neutrophils # Man Lymphocytes # (Manual) PT 17.7 H INR 1.36 H APTT Heparin Anti-Xa Level POC ABG pH POC ABG pCO2 POC ABG pO2 Sodium 135 L Potassium Chloride Carbon Dioxide 20 L BUN 33 H Creatinine 1.5 H Glucose 161 H POC Glucose 155 H Hemoglobin A1c Lactic Acid Calcium 8.3 L Phosphorus AST Alkaline Phosphatase NT-Pro-B Natriuret Pep Total Protein Albumin Urine WBC (Auto) Crossmatch 10/30/18 10/30/18 10/30/18 05:04 07:53 10:54 WBC RBC Hgb 7.9 L Hct 23.8 L MCH RDW Plt Count Lymph % (Auto) [place] % (Auto) Lymph # [place] # Eos # Baso # Seg Neutrophils % Seg Neuts % (Manual) Lymphocytes % (Manual) Seg Neutrophils # Seg Neutrophils # Man Lymphocytes # (Manual) PT INR APTT Heparin Anti-Xa Level POC ABG pH POC ABG pCO2 POC ABG pO2 Sodium Potassium Chloride Carbon Dioxide BUN Creatinine Glucose POC Glucose 291 H 313 H Hemoglobin A1c Lactic Acid Calcium Phosphorus AST Alkaline Phosphatase NT-Pro-B Natriuret Pep Total Protein Albumin Urine WBC (Auto) Crossmatch 10/30/18 10/30/18 10/31/18 16:05 21:22 06:00 WBC RBC Hgb Hct MCH RDW Plt Count Lymph % (Auto) [place] % (Auto) Lymph # [place] # Eos # Baso # Seg Neutrophils % Seg Neuts % (Manual) Lymphocytes % (Manual) Seg Neutrophils # Seg Neutrophils # Man Lymphocytes # (Manual) PT 19.9 H INR 1.58 H APTT Heparin Anti-Xa Level POC ABG pH POC ABG pCO2 POC ABG pO2 Sodium Potassium Chloride Carbon Dioxide BUN Creatinine Glucose POC Glucose 183 H 206 H Hemoglobin A1c Lactic Acid Calcium Phosphorus AST Alkaline Phosphatase NT-Pro-B Natriuret Pep Total Protein Albumin Urine WBC (Auto) Crossmatch 10/31/18 10/31/18 10/31/18 07:37 11:05 16:12 WBC RBC Hgb Hct MCH RDW Plt Count Lymph % (Auto) [place] % (Auto) Lymph # [place] # Eos # Baso # Seg Neutrophils % Seg Neuts % (Manual) Lymphocytes % (Manual) Seg Neutrophils # Seg Neutrophils # Man Lymphocytes # (Manual) PT INR APTT Heparin Anti-Xa Level POC ABG pH POC ABG pCO2 POC ABG pO2 Sodium Potassium Chloride Carbon Dioxide BUN Creatinine Glucose POC Glucose 342 H 406 H 299 H Hemoglobin A1c Lactic Acid Calcium Phosphorus AST Alkaline Phosphatase NT-Pro-B Natriuret Pep Total Protein Albumin Urine WBC (Auto) Crossmatch 10/31/18 11/01/18 11/01/18 21:51 07:00 08:20 WBC RBC Hgb Hct MCH RDW Plt Count Lymph % (Auto) [place] % (Auto) Lymph # [place] # Eos # Baso # Seg Neutrophils % Seg Neuts % (Manual) Lymphocytes % (Manual) Seg Neutrophils # Seg Neutrophils # Man Lymphocytes # (Manual) PT 22.5 H INR 1.84 H APTT Heparin Anti-Xa Level POC ABG pH POC ABG pCO2 POC ABG pO2 Sodium Potassium Chloride Carbon Dioxide BUN Creatinine Glucose POC Glucose 129 H 249 H Hemoglobin A1c Lactic Acid Calcium Phosphorus AST Alkaline Phosphatase NT-Pro-B Natriuret Pep Total Protein Albumin Urine WBC (Auto) Crossmatch 11/01/18 11/01/18 11/01/18 12:15 16:24 21:57 WBC RBC Hgb Hct MCH RDW Plt Count Lymph % (Auto) [place] % (Auto) Lymph # [place] # Eos # Baso # Seg Neutrophils % Seg Neuts % (Manual) Lymphocytes % (Manual) Seg Neutrophils # Seg Neutrophils # Man Lymphocytes # (Manual) PT INR APTT Heparin Anti-Xa Level POC ABG pH POC ABG pCO2 POC ABG pO2 Sodium Potassium Chloride Carbon Dioxide BUN Creatinine Glucose POC Glucose 158 H 54 L 232 H Hemoglobin A1c Lactic Acid Calcium Phosphorus AST Alkaline Phosphatase NT-Pro-B Natriuret Pep Total Protein Albumin Urine WBC (Auto) Crossmatch 11/02/18 11/02/18 11/02/18 06:00 07:46 11:54 WBC RBC Hgb Hct MCH RDW Plt Count Lymph % (Auto) [place] % (Auto) Lymph # [place] # Eos # Baso # Seg Neutrophils % Seg Neuts % (Manual) Lymphocytes % (Manual) Seg Neutrophils # Seg Neutrophils # Man Lymphocytes # (Manual) PT 24.3 H INR 2.03 H APTT Heparin Anti-Xa Level POC ABG pH POC ABG pCO2 POC ABG pO2 Sodium Potassium Chloride Carbon Dioxide BUN Creatinine Glucose POC Glucose 51 L 188 H Hemoglobin A1c Lactic Acid Calcium Phosphorus AST Alkaline Phosphatase NT-Pro-B Natriuret Pep Total Protein Albumin Urine WBC (Auto) Crossmatch 11/02/18 11/02/18 11/02/18 14:48 18:02 21:40 WBC RBC Hgb Hct MCH RDW Plt Count Lymph % (Auto) [place] % (Auto) Lymph # [place] # Eos # Baso # Seg Neutrophils % Seg Neuts % (Manual) Lymphocytes % (Manual) Seg Neutrophils # Seg Neutrophils # Man Lymphocytes # (Manual) PT INR APTT Heparin Anti-Xa Level POC ABG pH POC ABG pCO2 POC ABG pO2 Sodium Potassium Chloride Carbon Dioxide BUN Creatinine Glucose POC Glucose 249 H 152 H 150 H Hemoglobin A1c Lactic Acid Calcium Phosphorus AST Alkaline Phosphatase NT-Pro-B Natriuret Pep Total Protein Albumin Urine WBC (Auto) Crossmatch 11/03/18 11/03/18 11/03/18 06:00 07:55 11:28 WBC RBC Hgb Hct MCH RDW Plt Count Lymph % (Auto) [place] % (Auto) Lymph # [place] # Eos # Baso # Seg Neutrophils % Seg Neuts % (Manual) Lymphocytes % (Manual) Seg Neutrophils # Seg Neutrophils # Man Lymphocytes # (Manual) PT 28.1 H INR 2.43 H APTT Heparin Anti-Xa Level POC ABG pH POC ABG pCO2 POC ABG pO2 Sodium Potassium Chloride Carbon Dioxide BUN Creatinine Glucose POC Glucose 209 H 119 H Hemoglobin A1c Lactic Acid Calcium Phosphorus AST Alkaline Phosphatase NT-Pro-B Natriuret Pep Total Protein Albumin Urine WBC (Auto) Crossmatch 11/03/18 11/03/18 11/04/18 16:41 21:14 05:55 WBC RBC Hgb Hct MCH RDW Plt Count Lymph % (Auto) [place] % (Auto) Lymph # [place] # Eos # Baso # Seg Neutrophils % Seg Neuts % (Manual) Lymphocytes % (Manual) Seg Neutrophils # Seg Neutrophils # Man Lymphocytes # (Manual) PT 26.0 H INR 2.21 H APTT Heparin Anti-Xa Level POC ABG pH POC ABG pCO2 POC ABG pO2 Sodium Potassium Chloride Carbon Dioxide BUN Creatinine Glucose POC Glucose 178 H 130 H Hemoglobin A1c Lactic Acid Calcium Phosphorus AST Alkaline Phosphatase NT-Pro-B Natriuret Pep Total Protein Albumin Urine WBC (Auto) Crossmatch 11/04/18 11/04/18 07:26 11:57 WBC RBC Hgb Hct MCH RDW Plt Count Lymph % (Auto) [place] % (Auto) Lymph # [place] # Eos # Baso # Seg Neutrophils % Seg Neuts % (Manual) Lymphocytes % (Manual) Seg Neutrophils # Seg Neutrophils # Man Lymphocytes # (Manual) PT INR APTT Heparin Anti-Xa Level POC ABG pH POC ABG pCO2 POC ABG pO2 Sodium Potassium Chloride Carbon Dioxide BUN Creatinine Glucose POC Glucose 477 H 203 H Hemoglobin A1c Lactic Acid Calcium Phosphorus AST Alkaline Phosphatase NT-Pro-B Natriuret Pep Total Protein Albumin Urine WBC (Auto) Crossmatch Allied health notes reviewed: nursing
[2018-11-04] MEDS ORDERED: LANTUS SUB-Q SCH (16:40)
[2018-11-04] MEDS ORDERED: GLUCAGEN IM SCH (17:00)
[2018-11-04] MEDS: COUMADIN PO SCH (17:05)
[2018-11-04] MEDS: HumuLIN R SUB-Q SCH (22:33)
[2018-11-04 22:40] VITALS: BP 165/102
== END 2018-11-04 23:00 | disposition home or self-care (01) | DRG 870 ==
LOC: ED 01:47 → CC1 04:59 → 3A 10-17 11:57
PROVIDERS: ADMIT Internal Medicine; ATTEND Internal Medicine
PROC: 5A1955Z Respiratory Ventilation, Greater than 96 Consecutive Hours (ICD-10-PCS; principal; 2018-10-07)
PROC: 0BH17EZ Insertion of Endotracheal Airway into Trachea, Via Natural or Artificial Opening (ICD-10-PCS; 2018-10-07)
PROC: 4A033R1 Measurement of Arterial Saturation, Peripheral, Percutaneous Approach (ICD-10-PCS; 2018-10-07)
PROC: 02HV33Z Insertion of Infusion Device into Superior Vena Cava, Percutaneous Approach (ICD-10-PCS; 2018-10-09)
PROC: 0DB68ZX Excision of Stomach, Via Natural or Artificial Opening Endoscopic, Diagnostic (ICD-10-PCS; 2018-10-21)
PROC: 0DB78ZX Excision of Stomach, Pylorus, Via Natural or Artificial Opening Endoscopic, Diagnostic (ICD-10-PCS; 2018-10-21)
PROC: 0DJD8ZZ Inspection of Lower Intestinal Tract, Via Natural or Artificial Opening Endoscopic (ICD-10-PCS; 2018-10-21)
PROC: 30233N1 Transfusion of Nonautologous Red Blood Cells into Peripheral Vein, Percutaneous Approach (ICD-10-PCS; 2018-10-21)
DX: A41.9 Sepsis, unspecified organism (principal); J96.01 Acute respiratory failure with hypoxia; N17.0 Acute kidney failure with tubular necrosis; G92 Toxic encephalopathy; E11.641 Type 2 diabetes mellitus with hypoglycemia with coma; I50.23 Acute on chronic systolic (congestive) heart failure; J69.0 Pneumonitis due to inhalation of food and vomit; I16.0 Hypertensive urgency; F12.10 Cannabis abuse, uncomplicated; E87.0 Hyperosmolality and hypernatremia; E87.1 Hypo-osmolality and hyponatremia; T45.515A Adverse effect of anticoagulants, initial encounter; R65.20 Severe sepsis without septic shock; I25.10 Atherosclerotic heart disease of native coronary artery without angina pectoris; I16.1 Hypertensive emergency; E87.2 Acidosis; R79.1 Abnormal coagulation profile; E87.5 Hyperkalemia; G40.901 Epilepsy, unspecified, not intractable, with status epilepticus; E11.22 Type 2 diabetes mellitus with diabetic chronic kidney disease; T78.3XXA Angioneurotic edema, initial encounter; I08.1 Rheumatic disorders of both mitral and tricuspid valves; N18.3 Chronic kidney disease, stage 3 (moderate); I13.2 Hypertensive heart and chronic kidney disease with heart failure and with stage 5 chronic kidney disease, or end stage renal disease; D64.9 Anemia, unspecified; Z95.1 Presence of aortocoronary bypass graft; Z95.5 Presence of coronary angioplasty implant and graft; Z79.899 Other long term (current) drug therapy; Z79.4 Long term (current) use of insulin; Z79.01 Long term (current) use of anticoagulants; Z86.74 Personal history of sudden cardiac arrest; Z83.3 Family history of diabetes mellitus; Z82.49 Family history of ischemic heart disease and other diseases of the circulatory system; Z95.4 Presence of other heart-valve replacement; I25.2 Old myocardial infarction; Y92.098 Other place in other non-institutional residence as the place of occurrence of the external cause
CPT/HCPCS: 36415; 36600; 70450; 71045; 71046; 74018; 74176; 80048; 80053; 80076; 80307; 81001; 82140; 82803; 82947; 82962; 83036; 83735; 83880; 84100; 84132; 84484; 85007; 85014; 85018; 85025; 85027; 85049; 85520; 85610; 85730; 86140; 86850; 86900; 86901; 86920; 87040; 87070; 87205; 88305; 88342; 93005; 93010; 93306; 94002; 94003; 94640; 94760; 96374; 96375; G0378; A6250; C9113; J0360; J0696; J1200; J1610; J1644; J1650; J1815; J1940; J2060; J2250; J2543; J2704; J2765; J2930; J3010; J3370; J7030; J7040; J7070; P9016